=== PATIENT | female | born 2005 | race Caucasian/White ===

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

== ENCOUNTER 2024-01-05 11:50 | Emergency (ER) | payer OTHER, SELFPAY ==
[2024-01-05 11:56] VITALS: BP 145/80; PULSE 60; RESP 18; TEMP 36.8; O2SAT 98; BMI 33.1
[2024-01-05 12:35] LABS: Influenza Virus A Antigen Negative; Influenza Virus B Antigen Negative; Internal Control Within Normal Limits; SARS-CoV-2 Ag NEGATIVE (NEGATIVE)
--- NOTE | 2024-01-05 12:44 | ED_ITS ---
HPI - URI/Sore Throat General Chief Complaint: Upper Respiratory Infection Stated Complaint: FLU LIKE SYMPTOMS Time Seen by Provider: 01/05/24 11:56 Source: patient Limitations: no limitations History of Present Illness HPI Narrative: Patient with 3 days of nasal congestion, dry cough, fever and body aches. She has been taking OTC meds but it is not going away . She admits to some wheezing. No GI or symptoms. Uncertain about ill exposures. She vapes/smokes. No history of asthma or lung disease Related Data Previous Rx's Medication Instructions Recorded albuterol sulfate 90 mcg/actuation 2 inh inhalation Q6H PRN shortness 01/05/24 aerosol inhaler of breath or wheezing #6.7 grams tdcgjfnzokvoqat-nmeibpynwdhgzlq-UP 5 ml PO Q6H PRN cold symptoms #118 01/05/24 2 mg-30 mg-10 mg/5 mL oral syrup mL (Bromfed DM) Allergies Allergy/AdvReac Type Severity Reaction Status Date / Time haloperidol [From Haldol] Allergy Severe Verified 01/05/24 11:56 metoclopramide [From Reglan] AdvReac Intermediate facial Verified 01/05/24 11:56 drooping PFSH PFSH Medical History (Updated 01/05/24 @ 12:47 by Seven Watts) Leukocytosis ?D72.829 - Elevated white blood cell count, unspecified (ICD-10) Bipolar 1 disorder ?F31.9 - Bipolar disorder, unspecified (ICD-10) Migraine ?G43.909 - Migraine, unspecified, not intractable, without status migrainosus (ICD-10) POTS (postural orthostatic tachycardia syndrome) ?G90.A - Postural orthostatic tachycardia syndrome [POTS] (ICD-10) Cyclic vomiting syndrome ?R11.15 - Cyclical vomiting syndrome unrelated to migraine (ICD-10) Cyclic vomiting syndrome ?R11.15 - Cyclical vomiting syndrome unrelated to migraine (ICD-10) Fall ?W19.XXXA - Unspecified fall, initial encounter (ICD-10) Fracture of tibial plateau ?S82.143A - Displaced bicondylar fracture of unspecified tibia, initial en counter for closed fracture (ICD-10) Surgical History History of appendectomy ?Z90.49 - Acquired absence of other specified parts of digestive tract (ICD- 10) Family History Father Family history of stroke Family history of diabetes mellitus Family history of cancer Family history of hypertension Family history of CHF (congestive heart failure) Grandfather Family history of stroke Grandmother Family history of myocardial infarction Mother Family history of diabetes mellitus Family history of cancer Social History Within the past year, how often did you have a drink containing alcohol: never Score interpretation: A score less than 3 is consistent with normal alcohol consumption. Smoking status: Current every day smoker Non-prescribed substance use: cannabis (any form) Do you think of yourself as: straight/heterosexual Gender Identity: female Exam Narrative Exam Narrative: Nurses notes and vital signs reviewed and patient is not hypoxic. afebrile General: Well-appearing and in no apparent distress. Skin: Warm, dry, no pallor noted. Head: Normocephalic, atraumatic. Neck: Supple, non-tender. No cervical lymphadenopathy. No meningismus. Eye: Pupils are equal, round and EOMI. No scleral icterus. Ears, Nose, Mouth, and Throat: TM are clear, mild posterior oropharynx erythema and nasal mucosal hypertrophy, uvula is mid-line. Oral mucosa is moist Cardiovascular: Regular Rate and Rhythm without murmur, gallop or rub. Respiratory: No accessory muscle use or respiratory distress. Lungs are clear to auscultation, no wheezing, rales or rhonchi Musculoskeletal: normal ROM GI: Abdomen is soft, non-distended. Normal bowel sounds. No tenderness to palpation. No rebound, guarding, or rigidity noted. Neurological: A&O x4. No cranial nerve dysfunction observed. No truncal ataxia. Moves all extremities. Sensation intact. Psychiatric: Cooperative and interactive. Normal mood and affect. Constitutional Vital Signs, click to edit/add: Last Vital Signs Temp 98.3 F 01/05/24 11:56 Pulse 60 01/05/24 11:56 Resp 18 01/05/24 11:56 BP 145/80 H 01/05/24 11:56 Pulse Ox 98 01/05/24 11:56 Course Vital Signs Vital signs: Vital Signs Temperature 98.3 F 01/05/24 11:56 Pulse Rate 60 01/05/24 11:56 Respiratory Rate 18 01/05/24 11:56 Blood Pressure 145/80 H 01/05/24 11:56 Pulse Oximetry 98 01/05/24 11:56 Temperature 98.3 F 01/05/24 11:56 Pulse Rate 60 01/05/24 11:56 Respiratory Rate 18 01/05/24 11:56 Blood Pressure 145/80 H 01/05/24 11:56 Pulse Oximetry 98 01/05/24 11:56 MDM - URI/Sore Throat MDM Narrative Medical decision making narrative: Swabs for COVID and influenza were negative. She has an upper respiratory tract infection associated with a viral syndrome. She was discharged home with prescription for Bromfed cough syrup and an albuterol MDI to use for any wheezing. She is not wheezing now which is why treatment was not given in the emergency department. Patient advised to rest, stay at home, practice social distancing, take Motrin and Tylenol for pain and fever if not allergic, stay well hydrated with Gatorade or similar drinks if vomiting or eat as tolerated if not and take any meds as prescribed. Reviewed reasons to return including rapid increase in respiratory rate, shortness of breath, confusion, inability to keep down sips of swallowed liquids for more than 24 hours. Asked patient to encourage any ill contacts to stay home and practice similar advice. Lab Data Attestation: I reviewed the patient's lab results. Labs: Lab Results 01/05/24 Range/Units 12:13 Influenza Type A Ag Negative Influenza Type B Ag Negative SARS-CoV-2 Ag (CV2AG) Negative (NEGATIVE) Discharge Plan Discharge Chief Complaint: Upper Respiratory Infection Clinical Impression: Upper respiratory infection, Viral infection Patient Disposition: Home, Self-Care Time of Disposition Decision: 12:47 Prescriptions / Home Meds: New xkiggbnpeirmwvs-gjntzdkqn-YE [Bromfed DM] 2-30-10 mg/5 mL syrup 5 ml PO Q6H PRN (Reason: cold symptoms) Qty: 118 0RF albuterol sulfate 90 mcg/actuation HFA aerosol inhaler 2 inh inhalation Q6H PRN (Reason: shortness of breath or wheezing) Qty: 6.7 0RF Instructions: Upper Respiratory Infection (ED), Viral Syndrome (ED) Stand Alone Forms: Portal Instructions Referrals: Physician,Non-Staff, MD [Primary Care Provider] - 1 week
== END 2024-01-05 12:58 | disposition home or self-care (01) ==
PROVIDERS: Emergency Provider Emergency Medicine
DX: J06.9 Acute upper respiratory infection, unspecified (principal); F17.290 Nicotine dependence, other tobacco product, uncomplicated; F31.9 Bipolar disorder, unspecified; Z90.49 Acquired absence of other specified parts of digestive tract
CPT/HCPCS: 87804; 87811; 99283

== ENCOUNTER 2024-02-01 08:08 | Emergency (ER) | payer OTHER, SELFPAY ==
[2024-02-01 08:11] VITALS: BP 128/89; PULSE 71; RESP 18; TEMP 37.1; O2SAT 98; BMI 34.3
--- NOTE | 2024-02-01 08:14 | XR_ITS ---
The [address] [address] Patient Name: PILI SEGURA MRN: [id number] date: 2005 Sex: F Assigned Patient Location: ER Current Patient Location: ER Accession/Order Number: [id number] Exam Date: 02/01/2024 08:40 Report Date: 02/01/2024 08:51 At the request of: CAT TUTTLE Procedure: XR ankle RT min 3V PROCEDURE: XR ankle RT min 3V COMPARISON: None. HISTORY: injury FINDINGS: BONES:No fracture, acute abnormality, or significant arthropathy. SOFT TISSUES:Negative. No visible soft tissue swelling. EFFUSION:None visible. OTHER: Negative. XR/XR ankle RT min 3V IMPRESSION: No acute radiographic abnormality Electronically authenticated by: MELIDA RAMOS Date: 02/01/2024 08:51
--- NOTE | 2024-02-01 09:27 | ED_ITS ---
HPI - General Adult General Chief complaint: Extremity Injury, Lower Stated complaint: LOWER EXTRMITY PAIN Time Seen by Provider: 02/01/24 08:37 Source: patient Mode of arrival: walk-in History of Present Illness HPI narrative: Patient is a 19-year-old female who is presenting to the ER today with chief complaint right ankle pain. Patient is having pain diffusely around in the right lateral malleolus. Patient stated she was at home today, they have a ladder in their house. Somehow patient stumbled or tripped, had a mechanical fall, the ladder fell down and patient fell down as well. Patient did not fall down a height, she had a same level fall. Patient had right knee surgery last year, patient had a patellar fracture and some muscles/ligaments that were torn and patient had a right knee surgery last year. Patient is having minimal pain to the right knee. Patient is able to walk with some pain. Father and boyfriend are at bedside, no other acute complaints. Patient does have a job, she has spoken to her boss and stated that she could do a sitdown job at work today we had a cast for discharge. All systems are negative except as noted/marked. All systems reviewed and otherwise negative. Nurses note and vital signs reviewed and patient is not hypoxic. General: The patient appears well and in no apparent distress. Patient is resting comfortably on cart. Patient is not toxic, lethargic, or listless. Poor hygiene. Skin: Warm, dry, no pallor noted. There is no rash noted. No petechiae, purpura. Head: Normocephalic, atraumatic Eye: Normal conjunctiva, no drainage, EOMI. PERRL Ears, Nose, Mouth, and Throat: oral mucosa is moist. Nares patent. Mouth without vesicles. Cardiovascular: Regular Rate and Rhythm, no murmur, gallop, rub Respiratory: Patient is in no distress, no accessory muscle use, lungs are clear to auscultation, no wheezing, rales or rhonchi Musculoskeletal: Patient has full range of motion of all of the extremities except to the right ankle/foot. Patient has full flexion/extension of the right knee with minimal if any pain, no pain with varus or valgus stress. Patient has mild tenderness to palpation around the right medial malleolus, diffusely, minimal pain to the right Achilles tendon, right Achilles tendon is intact. No pain to the right medial malleolus. No pain to the right foot. No other acute findings on physical exam. Patient no motor, sensory, or focal neurological deficits Neurological: A&O x4, normal speech Psychiatric: Cooperative Related Data Previous Rx's Medication Instructions Recorded albuterol sulfate 90 mcg/actuation 2 inh inhalation Q6H PRN shortness 01/05/24 aerosol inhaler of breath or wheezing #6.7 grams dfzjcxpghentees-ltqxfodurgeeafq-EG 5 ml PO Q6H PRN cold symptoms #118 01/05/24 2 mg-30 mg-10 mg/5 mL oral syrup mL (Bromfed DM) Allergies Allergy/AdvReac Type Severity Reaction Status Date / Time haloperidol [From Haldol] Allergy Severe Verified 01/05/24 11:56 metoclopramide [From Reglan] AdvReac Intermediate facial Verified 01/05/24 11:56 drooping PFSH PFSH Medical History (Updated 02/01/24 @ 09:27 by Floyd Molina MD) Leukocytosis ?D72.829 - Elevated white blood cell count, unspecified (ICD-10) Bipolar 1 disorder ?F31.9 - Bipolar disorder, unspecified (ICD-10) Migraine ?G43.909 - Migraine, unspecified, not intractable, without status migrainosus (ICD-10) POTS (postural orthostatic tachycardia syndrome) ?G90.A - Postural orthostatic tachycardia syndrome [POTS] (ICD-10) Cyclic vomiting syndrome ?R11.15 - Cyclical vomiting syndrome unrelated to migraine (ICD-10) Cyclic vomiting syndrome ?R11.15 - Cyclical vomiting syndrome unrelated to migraine (ICD-10) Fall ?W19.XXXA - Unspecified fall, initial encounter (ICD-10) Fracture of tibial plateau ?S82.143A - Displaced bicondylar fracture of unspecified tibia, initial encounter for closed fracture (ICD-10) Surgical History History of appendectomy ?Z90.49 - Acquired absence of other specified parts of digestive tract (ICD- 10) Family History Father Family history of stroke Family history of diabetes mellitus Family history of cancer Family history of hypertension Family history of CHF (congestive heart failure) Grandfather Family history of stroke Grandmother Family history of myocardial infarction Mother Family history of diabetes mellitus Family history of cancer Social History Within the past year, how often did you have a drink containing alcohol: never Score interpretation: A score less than 3 is consistent with normal alcohol consumption. Smoking status: Current every day smoker Non-prescribed substance use: cannabis (any form) Do you think of yourself as: straight/heterosexual Gender Identity: female Exam Constitutional Vital Signs, click to edit/add: Last Vital Signs Temp 98.8 F 02/01/24 08:11 Pulse 71 02/01/24 08:11 Resp 18 02/01/24 08:11 BP 128/89 02/01/24 08:11 Pulse Ox 98 02/01/24 08:11 Course Vital Signs Vital signs: Vital Signs Temperature 98.8 F 02/01/24 08:11 Pulse Rate 71 02/01/24 08:11 Respiratory Rate 18 02/01/24 08:11 Blood Pressure 128/89 02/01/24 08:11 Pulse Oximetry 98 02/01/24 08:11 Temperature 98.8 F 02/01/24 08:11 Pulse Rate 71 02/01/24 08:11 Respiratory Rate 18 02/01/24 08:11 Blood Pressure 128/89 02/01/24 08:11 Pulse Oximetry 98 02/01/24 08:11 Medical Decision Making MDM Narrative Medical decision making narrative: Patient was placed in Fabián wrap and Aircast to the right ankle. Splint was assisted with . the patient was neurovascularly intact before and after the splint was placed. the affected bones/injured area had proper alignment in a splint. Education on splint care at home was given at bedside. Patient and family have no questions at discharge. Work note was given, education on ice, Fabián wrap and Aircast was done at bedside and on discharge paperwork. Patient has no acute signs of fracture. No questions at discharge. Patient was given a copy of her x-ray report Discharge Plan Discharge Chief Complaint: Extremity Injury, Lower Clinical Impression: Ankle pain, right Patient Disposition: Home, Self-Care Time of Disposition Decision: 09:27 Condition: Fair Prescriptions / Home Meds: No Action xwlrvjmdojaymoz-pbomigouz-BK [Bromfed DM] 2-30-10 mg/5 mL syrup 5 ml PO Q6H PRN (Reason: cold symptoms) Qty: 118 0RF albuterol sulfate 90 mcg/actuation HFA aerosol inhaler 2 inh inhalation Q6H PRN (Reason: shortness of breath or wheezing) Qty: 6.7 0RF Instructions: Ankle Sprain (ED), P.R.I.C.E. Treatment (ED) Additional Instructions: Use ice 20 minutes on, 20 minutes off. Ambulation as tolerated for the next 3 to 5 days. Work note given. Alternate Tylenol and Motrin every 4 hours for pain, inflammation, swelling. Referrals: Physician,Non-Staff, MD [Primary Care Provider] - 1 week Discharge Date/Time: 02/01/24 09:38 Stand Alone Forms: Work/School Release, Portal Instructions
== END 2024-02-01 09:38 | disposition home or self-care (01) ==
PROVIDERS: Emergency Provider Emergency Medicine
DX: M25.571 Pain in right ankle and joints of right foot (principal); F31.9 Bipolar disorder, unspecified; G90.A Postural orthostatic tachycardia syndrome [POTS]; Z90.49 Acquired absence of other specified parts of digestive tract; F17.210 Nicotine dependence, cigarettes, uncomplicated; F12.90 Cannabis use, unspecified, uncomplicated
CPT/HCPCS: 73610; 99283

== ENCOUNTER 2024-03-12 10:56 | Emergency (ER) | payer OTHER, SELFPAY ==
[2024-03-12 11:01] VITALS: BP 163/81; PULSE 78; TEMP 36.7; O2SAT 96; BMI 39.1
--- NOTE | 2024-03-12 11:10 | ED_ITS ---
HPI - Nausea/Vomiting/Diarrhea General Chief complaint: Nausea/Vomiting/Diarrhea Stated complaint: NAUSEA, VOMITING Time Seen by Provider: 03/12/24 11:07 Source: patient Mode of arrival: walk-in Limitations: no limitations History of Present Illness HPI Narrative: 19-year-old female presents to ED for nausea vomiting and abdominal cramping. It started mildly yesterday and was worse today. No fever or hematemesis or diarrhea. She states she is on her period now but had a period 2 weeks ago. The pain is cramping and moderate and continuous. She has a history of cyclic vomiting syndrome according to the EHR. Related Data Previous Rx's ?Medication ?Instructions ?Recorded albuterol sulfate 90 mcg/actuation 2 inh inhalation Q6H PRN shortness 01/05/24 aerosol inhaler of breath or wheezing #6.7 grams mnjbeqfpzxtkvwf-larqwbgawnwmzvr-US 5 ml PO Q6H PRN cold symptoms #118 01/05/24 2 mg-30 mg-10 mg/5 mL oral syrup mL (Bromfed DM) Allergies Allergy/AdvReac Type Severity Reaction Status Date / Time metoclopramide [From Reglan] AdvReac Intermediate facial Verified 01/05/24 11:56 drooping Review of Systems ROS Narrative A ten point review of systems is negative except as noted above. [facility] Medical History (Updated 03/12/24 @ 12:18 by Juan C Hernandez MD) Leukocytosis ?D72.829 - Elevated white blood cell count, unspecified (ICD-10) Bipolar 1 disorder ?F31.9 - Bipolar disorder, unspecified (ICD-10) Migraine ?G43.909 - Migraine, unspecified, not intractable, without status migrainosus (ICD-10) POTS (postural orthostatic tachycardia syndrome) ?G90.A - Postural orthostatic tachycardia syndrome [POTS] (ICD-10) Cyclic vomiting syndrome ?R11.15 - Cyclical vomiting syndrome unrelated to migraine (ICD-10) Cyclic vomiting syndrome ?R11.15 - Cyclical vomiting syndrome unrelated to migraine (ICD-10) Fall ?W19.XXXA - Unspecified fall, initial encounter (ICD-10) Fracture of tibial plateau ?S82.143A - Displaced bicondylar fracture of unspecified tibia, initial encounter for closed fracture (ICD-10) Surgical History History of appendectomy ?Z90.49 - Acquired absence of other specified parts of digestive tract (ICD- 10) Family History Father Family history of stroke Family history of diabetes mellitus Family history of cancer Family history of hypertension Family history of CHF (congestive heart failure) Grandfather Family history of stroke Grandmother Family history of myocardial infarction Mother Family history of diabetes mellitus Family history of cancer Social History Within the past year, how often did you have a drink containing alcohol: never Score interpretation: A score less than 3 is consistent with normal alcohol consumption. Smoking status: Current every day smoker Non-prescribed substance use: cannabis (any form) Do you think of yourself as: straight/heterosexual Gender Identity: female Exam Narrative Exam Narrative: Nurses note and vital signs reviewed and patient is not hypoxic. General: The patient appears well and in no apparent distress. Patient is re sting comfortably on cart. Skin: Warm, dry, no pallor noted. There is no rash noted. Head: Normocephalic, atraumatic Eye: Normal conjunctiva, no drainage Ears, Nose, Mouth, and Throat: oral mucosa is moist. Nares patent. Cardiovascular: Regular Rate and Rhythm Respiratory: Patient is in no distress, no accessory muscle use, lungs are clear to auscultation, no wheezing, rales or rhonchi Back: non-tender GI: Normal bowel sounds, no tenderness to palpation, no masses appreciated. No rebound, guarding, or rigidity noted. Musculoskeletal: The patient has no evidence of calf tenderness, no pitting edema, symmetrical pulses noted bilaterally Neurological: A&O, normal speech Psychiatric: Cooperative Constitutional Vital Signs, click to edit/add: Last Vital Signs Temp 98.1 F 03/12/24 11:01 Pulse 78 03/12/24 11:01 Resp 18 03/12/24 11:01 BP 163/81 H 03/12/24 11:01 Pulse Ox 96 03/12/24 11:01 O2 Del Method Room Air 03/12/24 11:01 Course Vital Signs Vital signs: Vital Signs Temperature 98.1 F 03/12/24 11:01 Pulse Rate 78 03/12/24 11:01 Respiratory Rate 18 03/12/24 11:01 Blood Pressure 163/81 H 03/12/24 11:01 Pulse Oximetry 96 03/12/24 11:01 Oxygen Delivery Method Room Air 03/12/24 11:01 Temperature 98.1 F 03/12/24 11:01 Pulse Rate 78 03/12/24 11:01 Respiratory Rate 18 03/12/24 11:01 Blood Pressure 163/81 H 03/12/24 11:01 Pulse Oximetry 96 03/12/24 11:01 Oxygen Delivery Method Room Air 03/12/24 11:01 MDM - Nausea/Vomiting/Diarrhea MDM Narrative Medical decision making narrative: She was ordered IV fluids and medications but did not want to stay for her full treatment and she left without completing treatment. Differential Diagnosis Differential diagnosis: Likely food poisoning, gastroenteritis, drug-induced nausea and vomiting, dehydration and other (Cyclic vomiting syndrome) Lab Data Attestation: I reviewed the patient's lab results. Labs: Lab Results 03/12/24 Range/Units 11:17 WBC 13.7 H (4.0-11.0) 10^3/uL RBC 5.03 (4.20-5.40) 10^6/uL Hgb 14.0 (12.0-16.0) g/dL Hct 43.3 (36.0-48.0) % MCV 86.1 (81.0-99.0) fL MCH 27.8 (26.7-34.0) pg MCHC 32.3 (29.9-35.2) g/dL RDW 13.2 (11.0-15.0) % Plt Count 306 (150-450) 10^3/uL MPV 10.3 (9.5-13.5) fL Neut % (Auto) 77.8 H (43.0-75.0) % Lymph % (Auto) 14.1 L (20.5-60.0) % Knox % (Auto) 4.1 (1.7-12.0) % Eos % (Auto) 3.2 (0.9-7.0) % Baso % (Auto) 0.4 (0.2-2.0) % Neut # (Auto) 10.6 H (1.4-6.5) 10^3/uL Lymph # (Auto) 1.9 (1.2-3.8) 10^3/uL Knox # (Auto) 0.6 (0.3-0.8) 10^3/uL Eos # (Auto) 0.4 (0.0-0.7) 10^3/uL Baso # (Auto) 0.1 (0.0-0.1) 10^3/uL Abs Immat Gran (auto) 0.06 H (0.00-0.03) 10^3/uL Imm/Tot Granulo (auto) 0.4 (0.0-0.5) % Sodium 141 (136-145) mmol/L Potassium 3.6 (3.5-5.1) mmol/L Chloride 106 (98-107) mmol/L Carbon Dioxide 19.6 L (21.0-32.0) mmol/L Anion Gap 19.0 BUN 19.0 H (7.0-18.0) mg/dL Creatinine 0.78 (0.55-1.02) mg/dL Est GFR ( Amer) >60 (>=60) Est GFR (Non-Af Amer) >60 (>=60) BUN/Creatinine Ratio 24.4 Glucose 136 H (74-106) mg/dL Calcium 10.0 (8.5-10.1) mg/dL Serum HCG, Qual Negative (NEGATIVE) Discharge Plan Discharge Stand Alone Forms: Portal Instructions Chief Complaint: Nausea/Vomiting/Diarrhea Clinical Impression: Nausea and vomiting Patient Disposition: Left Against Medical Advice Time of Disposition Decision: 12:18 Condition: Good Mode of Transportation: Private Vehicle Prescriptions / Home Meds: No Action mdzxuzrfwhqzjpf-fgulvqxbu-KT [Bromfed DM] 2-30-10 mg/5 mL syrup 5 ml PO Q6H PRN (Reason: cold symptoms) Qty: 118 0RF albuterol sulfate 90 mcg/actuation HFA aerosol inhaler 2 inh inhalation Q6H PRN (Reason: shortness of breath or wheezing) Qty: 6.7 0RF Print Language: Romanian Instructions: Acute Nausea and Vomiting (ED) Referrals: Physician,Non-Staff, MD [Primary Care Provider] - 1 week
[2024-03-12] MEDS: 0.9 % SODIUM CHLORIDE 1,000 ML 1000 ML IV (11:26)
[2024-03-12] MEDS: ONDANSETRON PF 4 MG/2 ML VIAL IV (11:26)
[2024-03-12 11:44] LABS: Basophils Absolute Auto 0.1 10^3/uL (0.0-0.1); Basophils Percent Auto 0.4 % (0.2-2.0); Eosinophils Absolute Auto 0.4 10^3/uL (0.0-0.7); Eosinophils Percent Auto 3.2 % (0.9-7.0); Hematocrit 43.3 % (36.0-48.0); Immature Granulocytes Abs Auto 0.06 10^3/uL (0.00-0.03); Immature Granulocytes Pct Auto 0.4 % (0.0-0.5); Lymphocytes Absolute Auto 1.9 10^3/uL (1.2-3.8); Lymphocytes Percent Auto 14.1 % (20.5-60.0); Mean Corpuscular HGB Conc 32.3 g/dL (29.9-35.2); Mean Corpuscular Hemoglobin 27.8 pg (26.7-34.0); Mean Corpuscular Volume 86.1 fL (81.0-99.0); Mean Platelet Volume 10.3 fL (9.5-13.5); Monocytes Absolute Auto 0.6 10^3/uL (0.3-0.8); Monocytes Percent Auto 4.1 % (1.7-12.0); Neutrophils Absolute Auto 10.6 10^3/uL (1.4-6.5); Neutrophils Percent Auto 77.8 % (43.0-75.0); Platelet Count 306 10^3/uL (150-450); Red Blood Count 5.03 10^6/uL (4.20-5.40); Red Cell Distribution Width 13.2 % (11.0-15.0); White Blood Count 13.7 10^3/uL (4.0-11.0)
[2024-03-12] MEDS: KETOROLAC TROMETHAMINE 30 MG/ML VIAL IVP (11:49)
[2024-03-12 11:50] LABS: BUN Creatinine Ratio 24.4; Carbon Dioxide 19.6 mmol/L (21.0-32.0); Chloride 106 mmol/L (98-107); Estimated GFR (African America >60 (>=60); Estimated GFR (Non-African Ame >60 (>=60); Glucose 136 mg/dL (74-106); Potassium 3.6 mmol/L (3.5-5.1); Sodium 141 mmol/L (136-145)
[2024-03-12 12:08] LABS: HCG Qualitative NEGATIVE (NEGATIVE)
== END 2024-03-12 12:20 | disposition left against medical advice (07) ==
PROVIDERS: Emergency Provider Emergency Medicine
DX: R11.2 Nausea with vomiting, unspecified (principal); Z53.29 Procedure and treatment not carried out because of patient's decision for other reasons; F31.9 Bipolar disorder, unspecified; G90.A Postural orthostatic tachycardia syndrome [POTS]; Z90.49 Acquired absence of other specified parts of digestive tract; F17.210 Nicotine dependence, cigarettes, uncomplicated; F12.90 Cannabis use, unspecified, uncomplicated
CPT/HCPCS: 36415; 80048; 84703; 85025; 96374; 96375; 99284

== ENCOUNTER 2024-03-13 08:25 | Emergency (ER) | payer OTHER, SELFPAY ==
[2024-03-13 08:29] VITALS: BP 136/76; PULSE 58; TEMP 36.9; O2SAT 100; BMI 37.2
--- NOTE | 2024-03-13 08:44 | ED_ITS ---
HPI - Nausea/Vomiting/Diarrhea General Chief complaint: Nausea/Vomiting/Diarrhea Stated complaint: SHORTNESS OF BREATH/NAUSEA Time Seen by Provider: 03/13/24 08:38 Source: patient Mode of arrival: walk-in History of Present Illness HPI Narrative: 19-year-old female presents for nausea and vomiting. She states she has cyclic vomiting. She smokes marijuana but tells me that this is not due to to marijuana. She was seen here yesterday but left without completing her treatment. She has had no hematemesis or fever or diarrhea. Related Data Previous Rx's ?Medication ?Instructions ?Recorded promethazine 25 mg rectal 25 mg MA Q6H PRN nausea and 03/13/24 suppository vomiting #12 ea promethazine 25 mg tablet 25 mg PO Q6H PRN nausea and 03/13/24 vomiting #20 tabs Allergies Allergy/AdvReac Type Severity Reaction Status Date / Time metoclopramide [From Reglan] AdvReac Intermediate facial Verified 01/05/24 11:56 drooping Review of Systems ROS Narrative A ten point review of systems is negative except as noted above. [facility] Medical History (Updated 03/13/24 @ 10:01 by Juan C Hernandez MD) Leukocytosis ?D72.829 - Elevated white blood cell count, unspecified (ICD-10) Bipolar 1 disorder ?F31.9 - Bipolar disorder, unspecified (ICD-10) Migraine ?G43.909 - Migraine, unspecified, not intractable, without status migrainosus (ICD-10) POTS (postural orthostatic tachycardia syndrome) ?G90.A - Postural orthostatic tachycardia syndrome [POTS] (ICD-10) Cyclic vomiting syndrome ?R11.15 - Cyclical vomiting syndrome unrelated to migraine (ICD-10) Cyclic vomiting syndrome ?R11.15 - Cyclical vomiting syndrome unrelated to migraine (ICD-10) Fall ?W19.XXXA - Unspecified fall, initial encounter (ICD-10) Fracture of tibial plateau ?S82.143A - Displaced bicondylar fracture of unspecified tibia, initial encounter for closed fracture (ICD-10) Surgical History History of appendectomy ?Z90.49 - Acquired absence of other specified parts of digestive tract (ICD- 10) Family History Father Family history of stroke Family history of diabetes mellitus Family history of cancer Family history of hypertension Family history of CHF (congestive heart failure) Grandfather Family history of stroke Grandmother Family history of myocardial infarction Mother Family history of diabetes mellitus Family history of cancer Social History Within the past year, how often did you have a drink containing alcohol: never Score interpretation: A score less than 3 is consistent with normal alcohol consumption. Smoking status: Current every day smoker Non-prescribed substance use: cannabis (any form) Do you think of yourself as: straight/heterosexual Gender Identity: female Exam Narrative Exam Narrative: Nurses note and vital signs reviewed and patient is not hypoxic. General: The patient appears well and in no apparent distress. Patient is resting comfortably on cart. Skin: Warm, dry, no pallor noted. There is no rash noted. Head: Normocephalic, atraumatic Eye: Normal conjunctiva, no drainage Ears, Nose, Mouth, and Throat: oral mucosa is moist. Nares patent. Cardiovascular: Regular Rate and Rhythm Respiratory: Patient is in no distress, no accessory muscle use, lungs are clear to auscultation, no wheezing, rales or rhonchi Back: non-tender GI: Soft and nontender and nondistended Musculoskeletal: The patient has no evidence of calf tenderness, no pitting edema, symmetrical pulses noted bilaterally Neurological: A&O, normal speech Psychiatric: Cooperative Constitutional Vital Signs, click to edit/add: Last Vital Signs Temp 98.5 F 03/13/24 08:29 Pulse 58 L 03/13/24 08:29 Resp 20 03/13/24 08:29 BP 136/76 03/13/24 08:29 Pulse Ox 100 03/13/24 08:29 Course Vital Signs Vital signs: Vital Signs Temperature 98.5 F 03/13/24 08:29 Pulse Rate 58 L 03/13/24 08:29 Respiratory Rate 20 03/13/24 08:29 Blood Pressure 136/76 03/13/24 08:29 Pulse Oximetry 100 03/13/24 08:29 Temperature 98.5 F 03/13/24 08:29 Pulse Rate 58 L 03/13/24 08:29 Respiratory Rate 20 03/13/24 08:29 Blood Pressure 136/76 03/13/24 08:29 Pulse Oximetry 100 03/13/24 08:29 MDM - Nausea/Vomiting/Diarrhea MDM Narrative Medical decision making narrative: Does not think and she was given IV fluids and Phenergan and is discharged home. Findings are discussed with the patient. Differential Diagnosis Differential diagnosis: Likely food poisoning, gastroenteritis, dehydration and other (Cyclic vomiting) Lab Data Attestation: I reviewed the patient's lab results. Labs: Lab Results 03/13/24 Range/Units 09:04 WBC 16.5 H (4.0-11.0) 10^3/uL RBC 5.00 (4.20-5.40) 10^6/uL Hgb 13.8 (12.0-16.0) g/dL Hct 42.9 (36.0-48.0) % MCV 85.8 (81.0-99.0) fL MCH 27.6 (26.7-34.0) pg MCHC 32.2 (29.9-35.2) g/dL RDW 13.6 (11.0-15.0) % Plt Count 366 (150-450) 10^3/uL MPV 10.4 (9.5-13.5) fL Neut % (Auto) 84.3 H (43.0-75.0) % Lymph % (Auto) 9.9 L (20.5-60.0) % [place] % (Auto) 5.3 (1.7-12.0) % Eos % (Auto) 0.0 L (0.9-7.0) % Baso % (Auto) 0.1 L (0.2-2.0) % Neut # (Auto) 13.9 H (1.4-6.5) 10^3/uL Lymph # (Auto) 1.6 (1.2-3.8) 10^3/uL [place] # (Auto) 0.9 H (0.3-0.8) 10^3/uL Eos # (Auto) 0.0 (0.0-0.7) 10^3/uL Baso # (Auto) 0.0 (0.0-0.1) 10^3/uL Abs Immat Gran (auto) 0.07 H (0.00-0.03) 10^3/uL Imm/Tot Granulo (auto) 0.4 (0.0-0.5) % Sodium 142 (136-145) mmol/L Potassium 3.3 L (3.5-5.1) mmol/L Chloride 103 (98-107) mmol/L Carbon Dioxide 22.4 (21.0-32.0) mmol/L Anion Gap 19.9 BUN 23.0 H (7.0-18.0) mg/dL Creatinine 1.04 H (0.55-1.02) mg/dL Est GFR ( Amer) >60 (>=60) Est GFR (Non-Af Amer) >60 (>=60) BUN/Creatinine Ratio 22.1 Glucose 130 H (74-106) mg/dL Calcium 10.5 H (8.5-10.1) mg/dL Serum HCG, Qual Negative (NEGATIVE) Discharge Plan Discharge Stand Alone Forms: Portal Instructions Chief Complaint: Nausea/Vomiting/Diarrhea Clinical Impression: Nausea and vomiting Patient Disposition: Home, Self-Care Time of Disposition Decision: 10:01 Condition: Good Mode of Transportation: Private Vehicle Prescriptions / Home Meds: New promethazine 25 mg tablet 25 mg PO Q6H PRN (Reason: nausea and vomiting) Qty: 20 0RF promethazine 25 mg suppository 25 mg MA Q6H PRN (Reason: nausea and vomiting) Qty: 12 0RF Print Language: Luxem[place]ish Instructions: Acute Nausea and Vomiting (ED) Referrals: Physician,Non-Staff, MD [Primary Care Provider] - 1 week
[2024-03-13] MEDS: PROMETHAZINE HCL 12.5 MG in 0.9 % SODIUM CHLORIDE 50 ML 202 MG IV (08:58)
[2024-03-13] MEDS: KETOROLAC TROMETHAMINE 30 MG/ML VIAL IVP (08:59)
[2024-03-13] MEDS: 0.9 % SODIUM CHLORIDE 1,000 ML 1000 ML IV (08:59)
[2024-03-13 09:24] LABS: Anion Gap 19.9; BUN Creatinine Ratio 22.1; Calcium 10.5 mg/dL (8.5-10.1); Carbon Dioxide 22.4 mmol/L (21.0-32.0); Chloride 103 mmol/L (98-107); Estimated GFR (African America >60 (>=60); Estimated GFR (Non-African Ame >60 (>=60); Glucose 130 mg/dL (74-106); Potassium 3.3 mmol/L (3.5-5.1); Sodium 142 mmol/L (136-145)
[2024-03-13 09:45] LABS: HCG Qualitative NEGATIVE (NEGATIVE)
[2024-03-13 09:53] LABS: Basophils Percent Auto 0.1 % (0.2-2.0); Hematocrit 42.9 % (36.0-48.0); Hemoglobin 13.8 g/dL (12.0-16.0); Immature Granulocytes Abs Auto 0.07 10^3/uL (0.00-0.03); Immature Granulocytes Pct Auto 0.4 % (0.0-0.5); Lymphocytes Absolute Auto 1.6 10^3/uL (1.2-3.8); Lymphocytes Percent Auto 9.9 % (20.5-60.0); Mean Corpuscular HGB Conc 32.2 g/dL (29.9-35.2); Mean Corpuscular Hemoglobin 27.6 pg (26.7-34.0); Mean Corpuscular Volume 85.8 fL (81.0-99.0); Mean Platelet Volume 10.4 fL (9.5-13.5); Monocytes Absolute Auto 0.9 10^3/uL (0.3-0.8); Monocytes Percent Auto 5.3 % (1.7-12.0); Neutrophils Absolute Auto 13.9 10^3/uL (1.4-6.5); Neutrophils Percent Auto 84.3 % (43.0-75.0); Platelet Count 366 10^3/uL (150-450); Red Cell Distribution Width 13.6 % (11.0-15.0); White Blood Count 16.5 10^3/uL (4.0-11.0)
== END 2024-03-13 10:11 | disposition home or self-care (01) ==
PROVIDERS: Emergency Provider Emergency Medicine
DX: R11.2 Nausea with vomiting, unspecified (principal); F12.90 Cannabis use, unspecified, uncomplicated; F31.9 Bipolar disorder, unspecified; G90.A Postural orthostatic tachycardia syndrome [POTS]; Z90.49 Acquired absence of other specified parts of digestive tract; F17.210 Nicotine dependence, cigarettes, uncomplicated
CPT/HCPCS: 36415; 80048; 84703; 85025; 96365; 96375; 99284

== ENCOUNTER 2024-03-18 19:25 | Emergency (ER) | payer OTHER, SELFPAY ==
[2024-03-18 19:32] VITALS: BP 149/101; PULSE 116; TEMP 36.8; O2SAT 96; BMI 35.1
--- OUTSIDE RECORDS SUMMARY | 2024-03-18 19:46 | XMS_ITS | CCD ---
Author Organization [facility] Care Team Providers Care Embedded Software Manager Name Role Phone Calvin, Mere T Unavailable Unavailable Calvin, Mere T Unavailable Unavailable WILKERSON-LUIS EDUARDO, AIMEE M Unavailable Unavail able Bumagina, Nilay Unavailable Unavailable SPLAWSKI, DALI B Unavailable Unavailable SPLAWSKI, DALI B Unavailable Unavailable Bumagina, Nilay Unavailable Unavailable SPLAWSKI, DALI B Unavailable Unavailable Bumagina, Nilay Unavailable Unavailable Bumagina, Nilay Unavailable Unavailable SPLAWSKI, DALI B Unavailable Unavailable Bumagina, Nilay Unavailable Unavailable Bumagina, Nilay Unavailable Unavailable Calvin, Mere T Unavailable Unavailable Bumagina, Nilay Unavailable Unavailable Bumagina, Nilay Unavailable Unavailable SPLAWSKI, DALI B Unavailable Unavailable Bumagina, Nilay Unavailable Unavailable Bumagina, Nilay Unavailable Unavailable WILKERSON-LUIS EDUARDO, AIMEE M Unavailable Unavail able SPLAWSKI, DALI B Unavailable Unavailable Aktay, Atiye Jeevan Unavailable Unavailable Bumagina, Nilay Unavailable Unavailable SPLAWSKI, DALI B Unavailable Unavailable Bumagina, Nilay Unavailable Unavailable Calvin, Mere T Unavailable Unavailable Bumagina, Nilay Unavailable Unavailable Bumagina, Nilay Unavailable Unavailable SPLAWSKI, DALI B Unavailable Unavailable Bumagina, Nilay Unavailable Unavailable Bumagina, Nilay Unavailable Unavailable LoParo, Radha Magy Unavailable Unavaila ble LoParo, Radha Magy Unavailable Unavaila ble LoParo, Radha Magy Unavailable Unavaila ble Bumagina, Nilay Unavailable Unavailable Unavailable Primary Care Provider Unavailabl e [facility], Services Primary Care Provider [phone] Tash, DO Art M Emergency Provider DO Ender Donovan J Emergency Provider DO Ravi Arguello M Emergency Provider DO Matthew Gilson Emergency Provider MILY Chand Attending Pr ovider MD Brennen Britt Attending Provider [phone] [facility] Prov ider [facility] Primary Care Provider FRANKY Rivera Emergency Provider MD Colten Fry Jr Emergency Provider DO Matthew Gilson Emergency Provider Aurelio, DO Gregorio Admit Provider Aurelio, DO Gregorio Attending Provider [facility] Prov ider FRANKY Rivera Emergency Provider [phone] MD Colten Fry Jr Emergency Provider DO Matthew Gilson Emergency Provider Lindliliamm, DO Gregorio Admit Provider [phone] Aurelio, DO Gregorio Attending Provider MILY Chand Attending Pr ovider DO Ravi Arguello M Emergency Provider [facility] Prov ider FRANKY Rivera Emergency Provider MD Colten Fry Jr Emergency Provider DO Matthew Gilson Emergency Provider Aurelio, DO Gregorio Admit Provider [phone] Aurelio, DO Gregorio Attending Provider MILY Chand Attending Pr ovider DO Ravi Arguello Emergency Provider [phone] DO Art Bianchi Emergency Provider [phone] DO Robert Henley Emergency Provider [facility] Primary Care Provider MD Corey Newberry Emergency Provider [facility] Primary Care Prov ider DO Federico Randolph Emergency Provider KATE Damian Emergency Provider [phone] MD Eliana Bautista Admit Provider [phone] MD Eliana Bautista Attending Provider SANDRO, DR VU Primary Care Unavailable DALIA ., AUSTIN Admitting Unavailable DALIA .AUSTIN Attending Unavailable DALIA ., AUSTIN Consulting Unavailable DIAB ., IRWIN Admitting Unavailable DIAB ., IRWIN Attending Unavailable SANDRO, DR VU Primary Care Unavailable KIA ARVIZU Consulting Unavailable ETHAN ., IRWIN Consulting Unavailable Colten Miller Unavailable [facility] Primary Care Provider MILY Chand Attending Pr ovider MD Colten Miller Attending Provider [facility] Primary Care Provider DO Ravi Arguello Emergency Provider [phone] [facility] Primary Care U navailable Art Bianchi Admitting Unavailable Art Bianchi Attending Unavailable Robert Henley Attending Unavailable [facility] Services Primary Care U navailable Robert Henley Admitting Unavailable [facility] Services Primary Care U navailable TashArt Admitting Unavailable TashArt Attending Unavailable Joss Rivera Attending Unavailable [facility], Services Primary Care U navailable Joss Rivera Admitting Unavailable Gregorio Carey Attending Unavailabl e [facility], Services Primary Care U navailable Gregorio Carey Admitting Unavailabl e [facility] Services Primary Care Unavaila ble Eliana Bautista Attending Unavailable Eliana Bautista Admitting Unavailable Modesta Chand Attending U [facility] Primary Care Unavaila ble Modesta Chand Admitting [facility] Ravi Arguello Admitting Unavailable Ravi Arguello Attending Unavailable [facility] Primary Care Unavaila ble [facility], Services Primary Care Unavaila ble Corey Newberry Attending Unavailable Corey Newberry Admitting Unavailable [facility] Primary Care Unavaila ble Angela, Colten Attending Unavailable Angela, Colten Admitting Unavailable Modesta Chand Attending U [facility] Primary Care [facility] Modesta Chand Admitting [facility] Primary Care Unavaila ble Olexa, Colten Admitting Unavailable Angela, Colten Attending Unavailable [facility] Primary Care Unavaila ble Angela, Colten Attending Unavailable Angela, Colten Admitting Unavailable Federico Randolph Attending Unavailable [facility] Primary Care Unavaila ble Federico Randolph Admitting Unavailable Gilson Castro Attending Unavailable Gilson Castro Admitting Unavailable [facility], Services Primary Care [facility] Primary Care [facility] Ravi Arguello Attending Unavailable Ravi Arguello Admitting Unavailable [facility] Primary Care Unavaila ble Angela, Colten Attending Unavailable Angela, Colten Admitting Unavailable [facility] Primary Care Unavaila ble Ravi Arguello Attending Unavailable Ravi Arguello Admitting Unavailable Colten Fry Jr Attending Unavailable [facility] Primary Care [facility] Colten Fry Jr Admitting Unavailable MODESTA ARCHIBALD Primary Care Physician August Bermudez Attending Unavailable MODESTA ARCHIBALD Primary Care Unavailable MODESTA ARCHIBALD Primary Care Unavailable Isaak Francis Attending Unavailable Allergies Allergy Classification Reported Allergen(s) Allergy Type Date of Onset Reaction(s) Facility (8 sources) Haloperidol; Translations: [haloperidol] Drug Allergy 3 Unknown Reaction [facility] (10 sources) Metoclopramide; Translations: [metoclopramide] Drug Allergy 3 Unknown (qualifier value) [facility] (1 source) Haloperidol Drug Allergy [facility] (2 sources) Iothalamate; Translations: [Reglan] Drug Allergy [facility] Medications Current Medications Medication Drug Class(es) Dates Sig (Normalized) Sig (Original) acetaminophen 325 mg / HYDROcodone bitartrate 5 mg oral tablet (20 sources) Opioid Agonist Start: 03-13-2024 End: 03-16-2024 [place] 325 mg-5 mg oral tablet 1 tab(s), Oral, q6hr for pain for 3 day(s), 7 tab(s), Refill(s) 0, [id number], 160, cm, 03/13/24 17:38:00 EDT, Height/Length Dosing, 95.5, kg, 03/13/24 17:38:00 EDT, Weight Dosing Start Date: 03/13/24 Stop Date: 03/16/24 Status: Ordered Start: 10-09-2021 take 15 mL by mouth every eight hours as needed for pain HYDROcodone-acetaminophen (HYCET) 7.5-32 5 mg/15 mL oral liquid Indications: Abscess, peritonsillar Take 15 mL by mouth every 8 hours as needed for pain. 120 mL 0 10/09/2021 Active Start: 12-15-2019 End: 12-31-2019 take 1 tablet by mouth every six hours Hydrocodone-Acetaminophen ([place]) 5-325 mg tablet Discontinued 1 TAB PO Q6H 6 2 December 15, 2019 December 31, 2019 1:37pm Start: 12-15-2019 End: 12-31-2019 Start: 04-20-2019 End: 05-05-2019 take 1 tablet by mouth every six hours Hydrocodone-Acetaminophen Discontinued 1 TAB PO Q6H 20 5 April 20, 2019 May 05, 2019 8:42pm Start: 04-20-2019 End: 05-05-2019 Start: 02-19-2019 End: 03-08-2019 take 1 tablet by mouth twice daily Hydrocodone-Acetaminophen ([place]) 5-325 mg tablet Discontinued 1 TAB PO Twice daily 6 3 February 19, 2019 March 08, 2019 3:53pm Start: 02-19-2019 End: 03-08-2019 Comment on above: Take 15 mL by mouth every 8 hours as needed for pain. acetaminophen 325 mg / oxyCODONE hydrochloride 5 mg oral tablet (9 sources) Opioid Agonist Start: 05-25-2023 take 1 tablet by mouth twice daily Oxycodone-Acetam inophen Active 5 - 325 TAB PO 2 times daily May 25, 2023 12:00am Start: 05-24-2023 take 1 tablet by kathe th every four to six hours as needed for pain Percocet 5-325 MG 1 tablet as needed for pain Orally up to every 4-6 hrs for 5 days SANTO: [id number] Apr, Active take 1 tablet by kathe th every six hours oxyCODONE-Acetaminophen 5-325 MG 1 tablet as needed Orally every 6 hrs Active cephalexin 500 mg oral capsule (20 sources) Cephalosporin Antibacterial Start: 05-24-2023 take 1 capsule by mouth every eight hours Cephalexin 500 MG 1 capsule Orally every 8 hrs for 2 days Apr, Active Start: 02-06-2022 End: 03-08-2022 take 250 mg by mouth four times daily Cephalexin Discontinued 250 MG PO Four times daily 24 06February 06, 2022 1:00am March 08, 2022 8:15pm Start: 08-20-2021 End: 09-05-2021 take 500 mg by mouth twice daily Cephalexin Discontinued 500 MG PO Twice daily August 20, 2021 12:00am September 05, 2021 11:25pm Start: 06-01-2021 End: 07-19-2021 take 1000 mg by mouth every twelve hours Cephalexin Discontinued 1000 MG PO Q12H 40 June 01, 2021 12:00am July 19, 2021 2:07pm Start: 06-01-2021 End: 07-19-2021 Start: 04-14-2021 End: 05-10-2021 take 1000 mg by mouth twice daily Cephalexin Discontinued 1000 MG PO Twice daily April 14, 2021 12:00am May 10, 2021 11:08am Start: 04-14-2021 End: 05-10-2021 Start: 10-07-2020 End: 01-12-2021 take 1 capsule by mouth twice daily Cephalexin (Keflex) 500 mg capsule Discontinued 500 MG PO Twice daily 16 09October 07, 2020 1:00am January 12, 2021 1:34pm Start: 03-23-2018 End: 04-05-2018 take 1 capsule by mouth four times daily Cephalexin (Keflex) 500 mg Capsule Discontinued 500 MG PO Four times daily March 23, 2018 12:00am April 05, 2018 10:48pm Start: 03-23-2018 End: 04-05-2018 Etonogestrel (3 sources) Progestin Nexplanon Active methocarbamol 500 mg oral tablet (2 sources) Muscle Relaxant Start: 4 End: 4 take 1 tablet by mouth three times daily Robaxin 500 mg Tab 500 mg = 1 tab(s), Oral, TID, X 3 day(s), # 9 tab(s), Refills(s) 0, Pharmacy: [facility][id number], 160, cm, 03/13/24 17:38:00 EDT, Height/Length Dosing, 95.5, kg, 03/13/24 17:38:00 EDT, Weight Dosing Start Date: 03/13/24 Stop Date: 03/16/24 Status: Ordered naproxen 500 mg oral tablet (20 sources) Nonsteroidal Anti-inflammatory Drug Start: 4 take 1 tablet by mouth twice daily as needed for pain Naprosyn 500 mg Tab 500 mg = 1 tab(s), Oral, BID, PRN for pain, # 20 tab(s), Refills(s) 0, Pharmacy: [facility]/pharmacy #[id number], 160, cm, 03/13/24 17:38:00 EDT, Height/Length Dosing, 95.5, kg, 03/13/24 17:38:00 EDT, Weight Dosing Start Date: 03/13/24 Status: Ordered Start: 02-19-2019 End: 03-08-2019 take 500 mg by mouth twice daily at mealtime Naproxen Discontinued 500 MG PO Twice daily February 19, 2019 12:00am March 08, 2019 3:53pm administer with food or milk ondansetron 8 mg disintegrating oral tablet (20 sources) Serotonin-3 Receptor Antagonist Start: 11-09-2022 take 8 mg by mouth every eight hours Ondansetron Active 8 MG PO Q8H 10 November 09, 2022 1:00am Start: 11-07-2022 End: 11-09-2022 Ondansetron Hcl Discontinued 4 MG PO every 6 to 8 hours November 07, 2022 1:00am November 09, 2022 4:12pm Start: 08-20-2022 End: 01-06-2023 Ondansetron Discontinued 4 M G PO every 6 to 8 hours August 20, 2022 12:00am January 06, 2023 5:46pm Start: 05-14-2022 End: 08-18-2022 take 4 mg by mouth every eight hours Ondansetron Discontinued 4 MG PO Q8H 7 May 14, 2022 12:00am August 18, 2022 12:32pm Start: 02-07-2022 End: 03-08-2022 Ondansetron Discontinued 4 M G PO every 6 to 8 hours February 07, 2022 1:00am March 08, 2022 8:15pm Start: 07-15-2021 End: 07-19-2021 take 1 tablet by mouth every eight hours Ondansetron Hcl (Zofran) 4 mg tablet Discontinued 4 MG PO Q8H 10 July 15, 2021 12:00am July 19, 2021 2:07pm Start: 04-14-2021 End: 07-19-2021 take 8 mg by mouth every eight hours Ondansetron Discontinued 8 MG PO Q8H 10 April 14, 2021 12:00am July 19, 2021 2:07pm Start: 10-02-2020 End: 04-14-2021 take 4 mg by mouth every eight hours Ondansetron Discontinued 4 MG PO Q8H October 07, 2020 1:00am January 12, 2021 1:35pm Start: 09-23-2020 End: 01-12-2021 take 4 mg by mouth every eight hours Ondansetron Hcl Discontinued 4 MG PO Q8H September 23, 2020 12:00am January 12, 2021 1:35pm Start: 06-25-2020 End: 07-19-2020 take 4 mg by mouth three times daily Ondansetron Discontinued 4 MG PO Three times daily 10 June 25, 2020 12:00am July 19, 2020 2:22pm Start: 01-03-2020 End: 02-19-2020 take 1 tablet by mouth every eight hours Ondansetron Hcl (Zofran) 4 mg tablet Discontinued 4 MG PO Q8H 6 2 January 03, 2020 1:00am February 19, 2020 6:54pm Start: 10-25-2019 End: 09-23-2020 Ondansetron Discontinued 4 M G PO every 6 to 8 hours April 23, 2020 12:00am May 19, 2020 4:07am Start: 09-30-2019 End: 10-24-2019 take 1 tablet by mouth four times daily Ondansetron Hcl (Zofran) 4 mg tablet Discontinued 4 MG PO Four times daily September 30, 2019 12:00am October 24, 2019 10:46pm Start: 09-30-2019 End: 10-24-2019 Start: 06-24-2019 End: 09-03-2019 take 4 mg by mouth every six hours Ondansetron Discontinued 4 MG PO Q6H June 24, 2019 12:00am September 03, 2019 8:25pm Start: 06-24-2019 End: 09-03-2019 Start: 05-02-2019 End: 09-03-2019 Ondansetron Discontinued 8 M G PO EVERY 8-12 HOURS June 02, 2019 12:00am September 03, 2019 8:25pm Start: 05-02-2019 End: 09-03-2019 take 8 mg by mouth three times daily Ondansetron Discontinued 8 MG PO Three times daily May 02, 2019 12:00am September 03, 2019 8:25pm Start: 02-19-2019 End: 03-08-2019 take 4 mg by mouth every eight hours Ondansetron Discontinued 4 MG PO Q8H February 19, 2019 12:00am March 08, 2019 3:53pm Start: 12-28-2018 End: 05-05-2019 take 1 tablet by mouth three times daily Ondansetron Hcl (Zofran) 8 mg Tablet Discontinued 8 MG PO Three times daily December 28, 2018 1:00am May 05, 2019 8:42pm Start: 09-04-2018 End: 10-16-2018 take 1 tablet by mouth every eight hours Ondansetron (Zofran Odt) 4 mg tablet,disintegrating Discontinued 4 MG PO Q8H 9 September 04, 2018 12:00am October 16, 2018 4:08pm Start: 08-29-2018 End: 09-01-2018 take 1 tablet by mouth every eight hours Ondansetron (Zofran Odt) 4 mg tablet,disintegrating Discontinued 4 MG PO Q8H 9 August 29, 2018 12:00am September 01, 2018 12:02am Start: 03-27-2018 End: 04-06-2018 take 1 tablet by mouth every four hours Ondansetron (Zofran Odt) 4 mg Tablet,Disintegrating Discontinued 4 MG PO Q4H March 27, 2018 12:00am April 06, 2018 12:29am administer first dose 30 minutes before start of emetogenic chemotherapy Start: 03-27-2018 End: 04-06-2018 Start: 01-03-2018 End: 01-17-2018 Ondansetron (Zofran Odt) 4 m g tablet,disintegrating Discontinued 8 MG PO Q8H 9 January 03, 2018 1:00am January 17, 2018 3:10am Start: 01-03-2018 End: 01-17-2018 Start: 10-03-2017 End: 10-06-2017 take 1 tablet by mouth every eight hours Ondansetron (Zofran Odt) 4 mg tablet,disintegrating Discontinued 4 MG PO Q8H October 03, 2017 1:00am October 06, 2017 1:12am Start: 10-03-2017 End: 10-16-2018 take 8 mg by mouth every eight hours Ondansetron Discontinued 8 MG PO Every 8 hours October 03, 2017 1:00am October 16, 2018 4:08pm take 1 tablet by kathe th every six hours as needed for vomiting Zofran 8 MG 1 tablet Orally q6h prn for vomiting for 5 days PRN Active promethazine hydrochloride 25 mg rectal suppository (20 sources) Phenothiazine Start: 03-13-2024 take 25 mg rectal route every six hours as needed for nausea Phenergan 25 mg Supp 25 mg = 1 supp, Rectal, q6hr, PRN Nausea/Vomiting, # 6 EA, Refills(s) 0, Pharmacy: [facility]/pharmacy #[id number], 160, cm, 03/13/24 17:38:00 EDT, Height/Length Dosing, 95.5, kg, 03/13/24 17:38:00 EDT, Weight Dosing Start Date: 03/13/24 Status: Ordered Start: 05-25-2023 take 12.5 mg by mout h three times daily Promethazine Active 12.5 MG PO Three times daily May 25, 2023 8:37am Start: 01-02-2023 Promethazine A ctive 25 MG OR Q6H January 02, 2023 1:00am Start: 12-31-2022 End: 05-25-2023 take 25 mg by mouth three times daily Promethazine Discontinued 25 MG PO Three times daily January 07, 2023 1:00am May 25, 2023 8:36am Start: 05-15-2022 End: 08-18-2022 take 25 mg by mouth three times daily Promethazine Discontinued 25 MG PO Three times daily May 15, 2022 12:00am August 18, 2022 12:33pm Start: 02-09-2022 End: 03-08-2022 Promethazine Discontinued 25 MG OR Q6H February 09, 2022 12:00am March 08, 2022 8:15pm Start: 09-30-2021 End: 03-08-2022 Promethazine Discontinued 12 .5 MG PO Three times daily 15 February 07, 2022 1:00am March 08, 2022 8:15pm 3 doses during day; last dose no later than 4 hr before bedtime Start: 09-30-2021 End: 02-06-2022 Promethazine Discontinued 12 .5 MG PO Twice daily September 30, 2021 12:00am February 06, 2022 11:25am 3 doses during day; last dose no later than 4 hr before bedtime Start: 09-30-2021 End: 10-08-2021 Promethazine Discontinued 12 .5 MG OR Once September 30, 2021 12:00am October 08, 2021 9:34pm Start: 09-30-2021 End: 10-08-2021 Start: 04-23-2020 End: 06-25-2020 take 12.5 mg by mouth every six hours Promethazine Discontinued 12.5 MG PO Q6H April 23, 2020 12:00am June 25, 2020 5:37pm Start: 04-23-2020 End: 06-25-2020 Start: 03-21-2020 End: 06-25-2020 take 12.5 mg by mouth every eight hours Promethazine Discontinued 12.5 MG PO Every 8 hours March 21, 2020 12:00am June 25, 2020 5:37pm Start: 03-21-2020 End: 06-25-2020 Start: 05-10-2019 End: 09-03-2019 Promethazine (Phenergan) 25 mg suppository Discontinued 25 MG OR Q4H May 10, 2019 12:00am September 03, 2019 8:25pm Start: 03-08-2019 End: 03-23-2019 take 25 mg by mouth every four to six hours Promethazine Discontinued 25 MG PO EVERY 4-6 HOURS March 08, 2019 12:00am March 23, 2019 5:49pm Start: 02-13-2018 End: 03-13-2018 Promethazine (Phenergan) 25 mg suppository Discontinued 25 MG OR Q8H February 13, 2018 12:00am March 13, 2018 10:44pm Start: 01-03-2018 End: 10-16-2018 Promethazine Discontinued 25 MG OR Q6H April 23, 2018 6:04pm October 16, 2018 4:08pm Start: 10-03-2017 End: 04-06-2018 take 25 mg by mouth every twelve hours Promethazine Discontinued 25 MG PO Q12H October 03, 2017 1:00am April 06, 2018 12:30am Start: 08-24-2016 End: 01-06-2023 take 25 mg by mouth every six hours Promethazine Discontinued 25 MG PO Q6H August 19, 2022 12:00am August 19, 2022 8:05pm traZODone hydrochloride 100 mg oral tablet (20 sources) Serotonin Reuptake Inhibitor Start: 05-25-2023 take 100 mg by mouth once daily Trazodone Active 100 MG PO Daily May 25, 2023 12:00am Start: 06-08-2022 End: 08-19-2022 take 50 mg by mouth once daily at bedtime Trazodone Discontinued 50 MG PO Daily at bedtime June 08, 2022 12:00am August 19, 2022 8:05pm Completed/Discontinued Medications Medication Drug Class(es) Dates Sig (Normalized) Sig (Original) [id number] 200 actuat albuterol 0.09 mg/actuat metered dose inhaler (20 sources) beta2-Adrenergic Agonist Start: 08-20-2021 End: 09-05-2021 Albuterol Sulfate Discontinued 2 INH INHALATION Q6H August 20, 2021 12:00am September 05, 2021 11:25pm administer with spacer Start: 08-20-2021 End: 09-05-2021 Start: 05-05-2019 End: 09-03-2019 take 1 puff(s) by inhalation every four to six hours Albuterol Sulfate (Proventil Hfa) 90 mcg/actuation Hfa Aerosol Inhaler Discontinued 2 PUFF INHALATION EVERY 4-6 HOURS May 05, 2019 12:00am September 03, 2019 8:24pm with spacer Start: 05-05-2019 End: 09-03-2019 Start: 12-21-2017 End: 07-19-2021 take 1 puff(s) by inhalation every four to six hours Albuterol Sulfate Discontinued 2 PUFF INHALATION EVERY 4-6 HOURS December 21, 2017 12:00am July 19, 2021 1:07pm Start: 12-21-2017 End: 07-19-2021 take 1 puff(s) by inhalation every four to six hours Albuterol Sulfate Discontinued 2 PUFF INHALATION EVERY 4-6 HOURS December 21, 2017 1:00am July 19, 2021 2:07pm Start: 08-27-2017 take 2 puff(s) by in halation every four hours as needed for wheezing Albuterol Sulfate HFA 108 (90 Base) MCG/ACT 2 puffs as needed Inhalation every 4 hrs prn for wheezing for 5 days PRN Jul, Active amitriptyline hydrochloride 25 mg oral tablet (20 sources) Tricyclic Antidepressant Start: 04-23-2018 End: 05-08-2018 take 10 mg by mouth at bedtime Amitriptyline Discontinued 10 MG PO Bedtime April 23, 2018 12:00am May 08, 2018 6:55pm Start: 04-23-2018 End: 05-08-2018 Start: 03-13-2018 End: 03-22-2018 take 5 mg by mouth at bedtime Amitriptyline Discontinu ed 5 MG PO Bedtime March 13, 2018 12:00am March 22, 2018 8:18am Start: 03-13-2018 End: 03-22-2018 amoxicillin 500 mg oral tablet (20 sources) Penicillin-class Antibacterial Start: 12-11-2019 End: 12-15-2019 take 500 mg by mouth twice daily Amoxicillin Discontinued 500 MG PO Twice daily December 11, 2019 1:00am December 14, 2019 7:24pm Start: 09-30-2019 End: 10-24-2019 take 500 mg by mouth three times daily Amoxicillin Discontinued 500 MG PO Three times daily September 30, 2019 12:00am October 24, 2019 10:47pm Start: 09-30-2019 End: 10-24-2019 Start: 03-13-2018 End: 03-22-2018 take 500 mg by mouth every eight hours Amoxicillin Discontinued 500 MG PO Q8H March 13, 2018 12:00am March 22, 2018 8:19am Start: 10-31-2017 End: 11-10-2017 take 500 mg by mouth every twelve hours Amoxicillin Discontinued 500 MG PO Q12H 16 09October 31, 2017 1:00am November 10, 2017 1:03am Start: 10-31-2017 End: 11-10-2017 amoxicillin 875 mg / clavulanate 125 mg oral tablet (20 sources) Penicillin-class Antibacterial Start: 09-27-2021 End: 02-06-2022 take 1 tablet by mouth twice daily Amoxicillin-Pot Clavulanate (Augmentin) 875-125 mg tablet Discontinued 1 TAB PO Twice daily September 27, 2021 12:00am February 06, 2022 11:25am Start: 09-27-2021 End: 02-06-2022 Start: 12-15-2019 End: 12-31-2019 take 1 tablet by mouth twice daily Amoxicillin-Pot Clavulanate (Augmentin) 875-125 mg tablet Discontinued 1 TAB PO Twice daily 14 December 15, 2019 1:00am December 31, 2019 1:37pm Start: 12-15-2019 End: 12-31-2019 Start: 08-23-2018 End: 10-16-2018 take 1 tablet by mouth twice daily Amoxicillin-Pot Clavulanate (Augmentin) 875-125 mg tablet Discontinued 1 TAB PO Twice daily 16 09August 23, 2018 12:00am October 16, 2018 4:01pm Start: 08-23-2018 End: 10-16-2018 atenolol 25 mg oral tablet (19 sources) beta-Adrenergic Adán Start: 10-03-2017 End: 07-30-2018 take 25 mg by mouth at bedtime Atenolol Discontinued 25 MG PO Bedtime October 03, 2017 1:00am July 30, 2018 10:46pm Start: 10-03-2017 End: 07-30-2018 azithromycin 250 mg oral tablet (20 sources) Macrolide Antimicrobial Start: 05-29-2021 End: 07-19-2021 take 2-5 tablets by mouth once daily Azithromycin (Zithromax Z-Ayana) 250 mg tablet Discontinued 0 PO .COMPLEX 6 May 29, 2021 12:00am July 19, 2021 2:07pm take 500 mg today (day 1), then 250 mg for 4 days (days 2-5) Start: 01-07-2020 End: 02-19-2020 take 2-5 tablets by mouth once daily Azithromycin (Zithromax Z-Ayana) 250 mg Tablet Discontinued 1 dose pk PO as directed on dose pack January 07, 2020 1:00am February 19, 2020 6:53pm take 500 mg today (day 1), then 250 mg for 4 days (days 2-5) Start: 08-17-2018 End: 08-23-2018 take 1 tablet by mouth once daily Azithromycin (Zithromax) 250 mg Tablet Discontinued 250 MG PO Daily August 17, 2018 12:00am August 23, 2018 5:22pm Beclomethasone Dipropionate (19 sources) Corticosteroid Start: 10-03-2017 End: 10-16-2018 Start: 10-03-2017 End: 10-16-2018 Beclomethasone Dipropionate Discontinued 80 MCG INHALATION As Directed October 03, 2017 12:00am October 16, 2018 3:01pm Start: 10-03-2017 End: 10-16-2018 Beclomethasone Dipropionate Discontinued 80 MCG INHALATION As Directed October 03, 2017 1:00am October 16, 2018 4:01pm benzonatate 100 mg oral capsule (20 sources) Non-narcotic Antitussive Start: 05-02-2019 End: 09-03-2019 take 1 capsule by mouth three times daily Benzonatate (Tessalon Perles) 100 mg capsule Discontinued 100 MG PO Three times daily May 02, 2019 12:00am September 03, 2019 8:24pm Start: 02-08-2019 End: 03-08-2019 take 1 capsule by mouth three times daily Benzonatate (Tessalon Perles) 100 mg capsule Discontinued 100 MG PO Three times daily February 08, 2019 12:00am March 08, 2019 3:53pm cholecalciferol 0.125 mg oral capsule (20 sources) Vitamin D Start: 10-16-2018 End: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 pain; Translations: [Abdominal pain] Onset: 08-25-2017 07-15-2021 Episodic Conditions associated with dizziness or vertigo (20 sources) Dizziness; Translations: [Dizziness and giddiness] Onset: 01-02-2023 04-30-2019 Episodic Fever of unknown origin (1 source) Fever, unspecified; Translations: [Fever, unspecified] Onset: 03-15-2023 Episodic Fluid and electrolyte disorders (20 sources) Dehydration; Translations: [Dehydration] Onset: 08-20-2022 08-20-2022 Episodic Nausea and vomiting (20 sources) Adverse reaction to cannabis; Translations: [Nausea with vomiting, unspecified] Onset: 10-31-2022 05-14-2022 Episodic Other disorders of stomach and duodenum (1 source) Functional dyspepsia; 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] Onset: 08-20-2022 Episodic Other upper respiratory infections (20 sources) Upper respiratory infection; Translations: [Acute upper respiratory infection, unspecified] Onset: 03-15-2023 12-21-2017 Episodic Spondylosis; intervertebral disc disorders; other back problems (1 source) Dorsalgia, unspecified; Translations: [Dorsalgia, unspecified] Onset: 08-25-2017 Episodic Unclassified (1 source) Vomiting, unspecified; Translations: [Vomiting, unspecified] Onset: 08-25-2017 Unclassified (1 source) Tachycardia, unspecified; Translations: [Tachycardia, unspecified] Onset: 08-25-2017 Results Test Name Value Interpretation Reference Range Facility CBC w/ Auto Diffon 4 Basophils/100 WBC (Bld) 0.4 % Normal 0.0-2.0 [facility] Comment on above: Performed By: #### 2 394919, [id number], 5112108, 6599431 ####[facility] [address] [place] [address] Basophils/Leukocytes Auto (Bld) [Pure # fraction] 0.1 E9/L Normal 0.0-0.2 [facility] Comment on above: Performed By: #### 2 364381, 02271901, 5966189, 1552747 ####[address] [address] Eosinophils (Bld) [#/Vol] 0.0 E9/L Normal 0.0-0.5 [facility] Comment on above: Performed By: #### 2 621199, 03889058, 9825016, 4212859 ####[address] [address] Eosinophils/100 WBC (Bld) 0.3 % Normal 0.0-8.0 [facility] Comment on above: Performed By: #### 2 679113, 86571655, 6315753, 6899994 ####[address] [address] Erythrocyte distribution width (RBC) [Ratio] 14.1 % Normal 10.9-14.2 [facility] Comment on above: Performed By: #### 2 358880, 90561976, 4168189, 1248520 ####[address] [address] Hematocrit (Bld) [Volume fraction] 44.0 % Normal 34.0-46.0 [facility] Comment on above: Performed By: #### 2 031263, 81879674, 0051064, 0666142 ####[address] [address] Hemoglobin (Bld) [Mass/Vol] 14.4 g/dL Normal 12.0-16.0 [facility] Comment on above: Performed By: #### 2 188493, 85580593, 4131611, 3020323 ####[address] [address] Lymphocytes (Bld) [#/Vol] 2.2 E9/L Normal 1.0-4.0 [facility] Comment on above: Performed By: #### 2 099282, 24866250, 6865827, 9743645 ####[address] [address] Lymphocytes/100 WBC (Bld) 15.8 % Normal 14.0-50.0 [facility] Comment on above: Performed By: #### 2 982162, 77905634, 2344281, 4949048 ####[address] [address] MCH (RBC) [Entitic mass] 27.8 pg Normal 27.0-34.0 [facility] Comment on above: Performed By: #### 2 504881, 42572661, 8991886, 7373526 ####[address] [address] MCHC (RBC) [Mass/Vol] 32.6 g/dL Normal 31.4-36.0 [facility] Comment on above: Performed By: #### 2 596258, 41437622, 9859204, 3416831 ####[address] [address] MCV (RBC) [Entitic vol] 85.2 fL Normal 80.0-100.0 [facility] Comment on above: Performed By: #### 2 800780, 86179155, 5364587, 9207171 ####[address] [address] Monocytes (Bld) [#/Vol] 1.1 E9/L High 0.2-1.0 [facility] Comment on above: Performed By: #### 2 669036, 07606448, 2761126, 3368531 ####[address] [address] Neutrophils (Bld) [#/Vol] 10.6 E9/L High 2.0-7.5 [facility] Comment on above: Performed By: #### 2 086201, 10765925, 2922622, 3700404 ####[address] [address] Neutrophils/100 WBC (Bld) 75.9 % High 36.0-75.0 [facility] Comment on above: Performed By: #### 2 616004, 27536020, 7920051, 8134397 ####[address] [address] Platelet mean volume (Bld) [Entitic vol] 8.4 fL Normal 6.4-10.8 [facility] Comment on above: Performed By: #### 2 536032, 84702240, 9621292, 8309514 ####[address] [address] Platelets (Bld) [#/Vol] 276.0 E9/L Normal 150.0-500. 0 [facility] Comment on above: Performed By: #### 2 202403, 04860017, 7585130, 2249997 ####[address] [address] RBC (Bld) [#/Vol] 5.2 E12/L Normal 4.3-5.9 [facility] Comment on above: Performed By: #### 2 542768, 98050142, 9297154, 1549801 ####[address] [address] WBC corrected for nucl RBC Auto (Bld) [#/Vol] 14.0 E9/L High 4.0-11.0 [facility] Comment on above: Performed By: #### 2 277245, 44216654, 5958804, 0062014 ####[address] [place] [address] CHEMISTRYOrdered By: [employer] SYSTEM on 03-15-2024 Albumin [Mass/Vol] 5.0 g/dL Normal 3.3 - 5.0 gm/dL Remisol Chem Albumin/Globulin [Mass ratio] 1.8 {ratio} Normal 1.1 - 2.2 Remisol Chem ALP [Catalytic activity/Vol] 69 [iU]/d Normal 21 - 98 Int._Unit/ L Remisol Chem ALT No additional P-5'-P [Catalytic activity/Vol] 31 [iU]/d Normal 6 - 46 Int._Unit/ L Remisol Chem Anion gap [Moles/Vol] 22 mmol/L High 6 - 16 mEq/L Remisol Chem AST [Catalytic activity/Vol] 19 [iU]/d Normal 5 - 43 Int._Unit/ L Remisol Chem Bilirubin [Mass/Vol] 0.8 mg/dL Normal 0.0 - 1 .1 mg/dL Rem[facility] Chem Calcium [Mass/Vol] 10.4 mg/dL Normal 8.9 - 11. 1 mg/dL [facility] CO2 [Moles/Vol] 19 mmol/L Low 21 - 31 mmol/L Remisol Chem Creatinine [Mass/Vol] 0.8 mg/dL Normal 0.5 - 1.3 mg/dL Remisol Chem eGFR 108 mL/min/1.73 m2 Normal >=59mL/mi n /1.73 m2 Remisol Chem Globulin (S) [Mass/Vol] 2.8 g/dL Normal 1.4 - 4.0 gm/dL [facility] Chem Glucose [Mass/Vol] 86 mg/dL Normal 55 - 199 mg/dL [facility] Chem Magnesium [Mass/Vol] 2.2 mg/dL Normal 1.3 - 2 .4 mg/dL Rem[facility] Chem Protein [Mass/Vol] 7.8 g/dL Normal 6.0 - 7.8 gm/dL Remisol Chem Urea nitrogen [Mass/Vol] 24 mg/dL High 5 - 21 mg/dL Remisol Chem Urea nitrogen/Creatinine [Mass ratio] 30 mg/mg High 10 - 20 [facility] CHEMISTRYOrdered By: Manish carpio on 03-15-2024 Chloride [Moles/Vol] 99 mmol/L Low 101 - 1 11 mmol/L Remisol Chem Potassium [Moles/Vol] 3.3 mmol/L Low 3.5 - 5.3 mmol/L Remisol Chem Sodium [Moles/Vol] 137 mmol/L Normal 135 - 145 mmol/L Remisol Chem CMPon 03-15-2024 Chloride [Moles/Vol] 99 mmol/L Low 101-111 [facility] Comment on above: Performed By: #### 2 460477, 80900907, 6096427, 3380871 ####[facility] [address] [place] [address] Potassium [Moles/Vol] 3.3 mmol/L Low 3.5-5.3 [facility] Comment on above: Performed By: #### 2 108997, 20433833, 7691975, 6950855 ####[facility] [address] [place] [address] Sodium [Moles/Vol] 137 mmol/L Normal 135-145 [facility] Comment on above: Performed By: #### 2 737658, 60730858, 9445547, 9300343 ####[facility] [address] [place] [address] Anion gap [Moles/Vol] 22 mmol/L High 6-16 [facility] Comment on above: Performed By: #### 2 784018, 57758464, 0797013, 7992479 ####[facility] [address] [place] [address] CO2 [Moles/Vol] 19 mmol/L Low 21-31 [facility] Comment on above: Performed By: #### 2 221648, 37935724, 8557441, 8411595 ####[facility] [address] [place] [address] Albumin [Mass/Vol] 5.0 g/dL Normal 3.3-5.0 [facility] Comment on above: Performed By: #### 2 036603, 70655944, 6589064, 1175291 ####[facility] [address] [place] [address] Albumin/Globulin (S) [Mass conc ratio] 1.8 Normal 1.1-2.2 [facility] Comment on above: Performed By: #### 2 855936, 95024767, 5286725, 5557646 ####[facility] [address] [place] [address] ALP [Catalytic activity/Vol] 69 Int._Unit/L Normal 21-98 [facility] Comment on above: Performed By: #### 2 287765, 17332162, 8797259, 5258984 ####[facility] [address] [place] [address] ALT No additional P-5'-P [Catalytic activity/Vol] 31 Int._Unit/L Normal 6-46 [facility] Comment on above: Performed By: #### 2 367722, 63589592, 1956429, 3718859 ####[facility] [address] [place] [address] AST [Catalytic activity/Vol] 19 Int._Unit/L Normal 5-43 [facility] Comment on above: Performed By: #### 2 140721, 43116010, 8573535, 1415987 ####[facility] [address] [place] [address] Bilirubin [Mass/Vol] 0.8 mg/dL Normal 0.0-1.1 [facility] Comment on above: Performed By: #### 2 973633, 59145390, 5397152, 1248328 ####[facility] [address] [place] [address] Calcium [Mass/Vol] 10.4 mg/dL Normal 8.9-11.1 [facility] Comment on above: Performed By: #### 2 722405, 51534060, 6117098, 2801156 ####[facility] [address] [place] [address] Creatinine [Mass/Vol] 0.8 mg/dL Normal 0.5-1.3 [facility] Comment on above: Performed By: #### 2 667184, 92694463, 2020132, 7228983 ####[facility] [address] [place] [address] Globulin (S) [Mass/Vol] 2.8 g/dL Normal 1.4-4.0 [facility] Comment on above: Performed By: #### 2 323072, 28407555, 5762484, 5947546 ####[facility] [address] [place] [address] Glucose [Mass/Vol] 86 mg/dL Normal 55-199 [facility] Comment on above: Performed By: #### 2 881512, 53745126, 5118602, 6180349 ####[facility] [address] [place] [address] Protein [Mass/Vol] 7.8 g/dL Normal 6.0-7.8 [facility] Comment on above: Performed By: #### 2 434074, 07963117, 9816301, 3496476 ####[facility] [address] [place] [address] Urea nitrogen [Mass/Vol] 24 mg/dL High 5-21 [facility] Comment on above: Performed By: #### 2 616782, 27617298, 3937540, 4735929 ####[facility] [address] [place] [address] Urea nitrogen/Creatinine [Mass ratio] 30 No Units High 10-20 [facility] Comment on above: Performed By: #### 2 943282, 50421514, 7871499, 7896409 ####[facility] [address] [place] [address] CT Chest w/ Contraston 03-15 CT Chest w/ Contrast Exam Date/Time: 03/15/2024 11:36 EDT Reason for Exam: Pneumomediastinum/pneumotho rax;Other (please specify) Report IMPRESSION: NEARLY RESOLVED MINIMAL PNEUMOMEDIASTINUM FROM 03/15/2024. NO OTHER SIGNIFICANT CHANGES IDENTIFIED. EXAM: CT Chest w/ Contrast, CT Spine Thoracic DATE: 03/15/2024 11:23 AM CLINICAL HISTORY: Pneumomediastinum/pneumotho rax. COMPARISON: Chest, abdomen and pelvis CTs 03/13/2024. TECHNIQUE: Spiral imaging was obtained of the chest after the infusion of approximately 100 mL of Isovue 300 contrast. Routine multiplanar reformatted reconstructions were performed; including dedicated reconstructions of the thoracic spine. All CT scans at this facility use dose modulation, iterative reconstruction, and/or weight based dosing when appropriate to reduce radiation dose to as low as reasonably achievable. Unless otherwise stated, incidental findings identified in this report do not require routine follow-up imaging. CHEST CT FINDINGS: Minimal pneumomediastinum noted on the prior study has diminished with mild residual within the right hilum. Trace air within the central inferior aspect of the right major intralobular fissure again noted. There are no displaced fractures, evidence of pulmonary contusion, organized hematoma, pleural or pericardial effusion, evidence of great vessel injury, or other significant changes identified. No significant coronary artery calcifications identified, within the limits of cardiac motion artifact. The included imaging of the abdomen is noncontributory. THORACIC SPINE CT FINDINGS: The spine is visualized from the C6-C7 level through L2-3. There is no fracture, dislocation, evidence of instability, acute paraspinal soft tissue abnormalities, or significant changes from 03/13/2024 identified. Report Ordering Provider: August Bermudez FINAL REPORT Dictated: 03/15/2024 11:52 am Anslemo Dolan MD Signed (Electronic Signature): 03/15/2024 11:52 am Signed by: Anselmo Dolan MD Transcribed by: KIRA Technologist: DIANA Technical Comments GFR (mL/min/1/73m2) na- age Contrast: Isovue 300 Contrast amount in ml's: 100 Normal [facility] Consent for Treatmenton 02-26 Consent for Treatment [id number] Normal [facility] Discharge Instructionson Discharge Instructions [id number] Normal [facility] ED Clinical Summaryon 2023 ED Clinical Summary (Inserted Image. Vesta ble to display) [place] [id number] ED Clinical Summary Person Information Name: PILI PARIKH/Nathan Age: 19 Years : 2005 Sex: Female Language: [place] PCP: MODESTA ARCHIBALD Marital Status: Single Visit Id: Visit Reason: Vomiting; Nausea; Back pain; DR BERMUDEZ CALLED TO COME BACK IN Speciality: Acuity: 3 Enc Type: Emergency Med Service: Emergency Arrival: 03/15/2024 10:32:10 Discharge: 03/15/2024 13:49:36 LOS: 000 03:17 Checkin: 03/15/2024 10:32:10 Checkout: 03/15/2024 13:49:36 Dispo Type: Home (Routine DC) EVENTS: Event Name Event Status Request Date/Time Start Date/Time Complete Date/Time Arrive Complete 03/15/2024 10:32:10 03/15/2024 10:32:10 03/15/2024 10:32:10 Document Home Meds Request 03/15/2024 10:32:10 Triage Complete 03/15/2024 10:32:10 03/15/2024 10:40:42 03/15/2024 10:40:42 Bed Assign Complete 03/15/2024 10:35:01 03/15/2024 10:35:01 03/15/2024 10:35:01 Dr Exam Complete 03/15/2024 10:35:01 03/15/2024 10:35:56 03/15/2024 10:35:56 RN Exam Complete 03/15/2024 10:35:01 03/15/2024 11:37:54 03/15/2024 11:37:54 Registration Complete 03/15/2024 10:35:56 03/15/2024 10:44:04 03/15/2024 10:44:04 Reg Complete Request 03/15/2024 10:44:04 Reg Bed Request Complete 03/15/2024 10:44:04 03/15/2024 10:44:04 03/15/2024 10:44:04 Pending Labs Inlab 03/15/2024 10:54:26 Lab Inlab 03/15/2024 10:54:26 CT Complete 03/15/2024 10:54:26 03/15/2024 11:23:43 03/15/2024 11:36:10 Meds Admin Complete 03/15/2024 10:54:54 03/15/2024 11:28:07 Pending Labs Complete 03/15/2024 11:37:27 03/15/2024 11:37:27 03/15/2024 12:53:18 Lab Complete 03/15/2024 11:37:27 03/15/2024 11:37:27 03/15/2024 12:53:18 Fall Risk Request 03/15/2024 11:37:54 Meds Admin Complete 03/15/2024 11:48:19 03/15/2024 12:02:15 Discharge Complete 03/15/2024 13:33:30 03/15/2024 13:49:40 03/15/2024 13:49:40 Transfer Complete 03/15/2024 13:49:40 03/15/2024 13:49:40 03/15/2024 13:49:40 ADDRESS: [address] [place] [id number] [facility] DOC NOTES: MEDICAL INFORMATION: Prescriptions Given: Medications to Continue with No Changes Other Medications acetaminophen-hydrocodone ([place] 325 mg-5 mg oral tablet) 1 Tablets By Mouth every 6 hours as needed for pain for 3 Days. Refills: 0. methocarbamol (Robaxin 500 mg Tab) 1 Tablets By Mouth 3 times a day for 3 Days. Refills: 0. naproxen (Naprosyn 500 mg Tab) 1 Tablets By Mouth 2 times a day as needed for pain. Refills: 0. promethazine (Phenergan 25 mg Supp) 1 Suppositories By rectum every 6 hours as needed Nausea/Vomiting. Refills: 0. PATIENT EDUCATION INFORMATION: Instructions: Pneumomediastinum; Nausea and Vomiting, Adult Follow up: With: Address: When: Kirk Serrano In 1 week 03/22/2024 Comments: Make sure to follow-up with Dr. Serrano at the surgery clinic in 1 week as instructed. Return to the emergency room if you develop chest pain, shortness of breath or any symptoms. DIAGNOSIS: 1:Nausea and vomiting; 2:Pneumomediastinum Normal [facility] ED Note-Physicianon 03-15-20 ED Note-Physician Basic Information Time Seen: Ebony BirminghamAugust 03/15/2024 10:35 Chief Complaint pt. states Dr. Bermudez called to come back for further evaluation. states she is having post. mid back pain with N/V. states she has been wheezing but denies any CP or SOB. smoker. History of Present Illness The patient is a 19-year-old female who presented to the emergency room with her father because of discrepancy on a recent CAT scan. The patient was seen in the emergency room on March 13 for fall down the steps. Our radiologist has read the CAT scan as the pneumomediastinum and pneumothorax. I called initially the patient and unable to leave a message. I called her father and the patient called back. With patient's permission I discussed the discrepancy findings with the patient and her father and instructed the patient to come to the emergency room for repeat CAT scan. The patient states that she has been feeling nauseated and vomiting. She still has some back pain and points to the mid back area. The patient denies any chest pain. She denies any other associated symptoms or any other complaints. Review of Systems Additional ROS info: Except as noted in the above Review of Systems and in the History of Present Illness all other systems have been reviewed and are negative or noncontributory. Physical Exam Vitals & Measurements T: 36.4 ?C(Tympanic) HR: 52(Monitored) RR: 18 BP: 148/87 SpO2: 100% HT: 160 cm WT: 95.5 kg BMI: 37.3 General: alert, no acute distress Skin: warm, dry, Head: no trauma, normocephalic Neck: Trachea midline, no tenderness, supple, no subcutaneous crepitus Eye: normal conjunctiva, sclera clear, ENMT: Oral mucosa moist, Cardiovascular: regular rate and rhythm, Respiratory: Lungs CTA, respirations non labored, breath sounds equal Chest wall: no deformity,notenderness, no crepitus on the chest wall Gastrointestinal: soft, non distended, no tenderness, no guarding Back: Mild generalized tenderness mid back, Normal ROM, Normal alignment, no step-offs. Extremities: no deformity, no trauma Neurological: Alert and oriented, motor strength equal & normal bilaterally, sensation equal & normal bilaterally, speech normal, no focal neuro deficits Psychiatric: cooperative, affect appropriate for age, Medical Decision Making MEDICAL DECISION MAKING Number and Complexity of Problems Differential Diagnosis: [] [facility] Data External documents reviewed: [] My EKG interpretation: [] My CT interpretation: [] My X-ray interpretation: [] My Ultrasound interpretation: [] Decision rules/scores evaluated: [] Discussed with: Dr. Serrano Treatment and Disposition ED Course: The patient was called to come back to the emergency room because of discrepancy. She was seen in the emergency room couple days ago for fall down the steps. The radiologist is reading as pneumothorax and pneumomediastinum. The patient was called and brought back to the emergency room. She is complaining of still some back pain and she reported some nausea and vomiting. The patient was given Zofran. IV fluid. Her nausea improved. She was given morphine for pain. CT of the chest with IV contrast was repeated and per radiologist and nearly resolved pneumomediastinum and small air under the fissure on the right. The case was discussed with Dr. Serrano surgery who have reviewed the images himself and they recommend patient be discharged home and follow-up with the surgery in 1 week. The patient has nausea medication at home. She is instructed to return to the emergency room if her vomiting recurs, chest pain, shortness of breath or any new symptoms. Shared decision making: Patient and her father Code status: [] Assessment/Plan 1. Nausea and vomiting (R11.2: Nausea with vomiting, unspecified) 2. 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) Orders: morphine, 4 mg = 1 mL, Injection, IV Push, Once, Stop date 03/15/24 11:48:00 EDT, STAT, Start date 03/15/24 11:48:00 EDT, 03/15/24 11:48:00 EDT ondansetron, 4 mg = 2 mL, Injection, IV Push, Once, Stop date 03/15/24 10:54:00 EDT, STAT, Start date 03/15/24 10:54:00 EDT, 03/15/24 10:54:00 EDT Sodium Chloride 0.9% intravenous solution, 1,000 mL, Soln-IV, IV, Once, Stop date 03/15/24 10:54:00 EDT, STAT, Start date 03/15/24 10:54:00 EDT, Infuse over 61, minute(s) CBC w/ Auto Diff Comprehensive Metabolic Panel CT Chest w/ Contrast eGFR Magnesium Level Medications Administered Given morphine 4 mg/mL Inj, 4 mg, IV Push NS 1000 ml Bolus, 1000 mL, IV Zofran 4 mg/2 mL Injection, 4 mg, IV Push Disposition Plan Patient Discharge Condition Stable, improved Discharge Disposition Discharge home Discharge Prescription List Prescriptions No active prescription medications Follow-up With When Contact Information Kirk Serrano In 1 week 03/22/2024 EDT Additional Instructions: Make sure to follow-up with Dr. Serrano at the surgery clinic in 1 week as instructed. Return to (more content not included)... Normal [facility] Comment on above: Result Comment: Elec tronically Signed By: Ebony Birmingham, August Carbone\.br\Date and Time Signed: 03/15/24 16:57 EDT ED Patient Education Noteon 03-15-2024 ED Patient Education Note Gastroenterology Nausea and Vomiting, Adult Nausea is the feeling that you have an upset stomach or that you are about to vomit. As nausea gets worse, it can lead to vomiting. Vomiting is when stomach contents forcefully come out of your mouth as a result of nausea. Vomiting can make you feel weak and cause you to become dehydrated. Dehydration can make you feel tired and thirsty, cause you to have a dry mouth, and decrease how often you urinate. Older adults and people with other diseases or a weak disease-fighting system (immune system) are at higher risk for dehydration. It is important to treat your nausea and vomiting as told by your health care provider. Follow these instructions at home: Watch your symptoms for any changes. Tell your health care provider about them. Eating and drinking ? Take an oral rehydration solution (ORS). This is a drink that is sold at pharmacies and retail stores. ? Drink clear fluids slowly and in small amounts as you are able. Clear fluids include water, ice chips, low-calorie sports drinks, and fruit juice that has water added (diluted fruit juice). ? Eat bland, bezs-oo-apyuzw foods in small amounts as you are able. These foods include bananas, applesauce, rice, lean meats, toast, and crackers. ? Avoid fluids that contain a lot of sugar or caffeine, such as energy drinks, sports drinks, and soda. ? Avoid alcohol. ? Avoid spicy or fatty foods. General instructions ? Take ibmn-xmu-eyucglm and prescription medicines only as told by your health care provider. ? Drink enough fluid to keep your urine pale yellow. ? Wash your hands often using soap and water for at least 20 seconds. If soap and water are not available, use hand bulb farmworker. ? Make sure that everyone in your household washes their hands well and often. ? Rest at home while you recover. ? Watch your condition for any changes. ? Take slow and deep breaths when you feel nauseous. ? Keep all follow-up visits. This is important. Contact a health care provider if: ? Your symptoms get worse. ? You have new symptoms. ? You have a fever. ? You cannot drink fluids without vomiting. ? Your nausea does not go away after 2 days. ? You feel light-headed or dizzy. ? You have a headache. ? You have muscle cramps. ? You have a rash. ? You have pain while urinating. Get help right away if: ? You have pain in your chest, neck, arm, or jaw. ? You feel extremely weak or you faint. ? You have persistent vomiting. ? You have vomit that is bright red or looks like black coffee grounds. ? You have bloody or black stools (feces) or stools that look like tar. ? You have a severe headache, a stiff neck, or both. ? You have severe pain, cramping, or bloating in your abdomen. ? You have difficulty breathing, or you are breathing very quickly. ? Your heart is beating very quickly. ? Your skin feels cold and clammy. ? You feel confused. ? You have signs of dehydration, such as: ? Dark urine, very little urine, or no urine. ? Cracked lips. ? Dry mouth. ? Sunken eyes. ? Sleepiness. ? Weakness. These symptoms may be an emergency. Get help right away. Call 911. ? Do not wait to see if the symptoms will go away. ? Do not drive yourself to the hospital. Summary ? Nausea is the feeling that you have an upset stomach or that you are about to vomit. As nausea gets worse, it can lead to vomiting. Vomiting can make you feel weak and cause you to become dehydrated. ? Follow instructions from your health care provider about eating and drinking to prevent dehydration. ? Take lelt-ltj-zowaupo and prescription medicines only as told by your health care provider. ? Contact your health care provider if your symptoms get worse, or you have new symptoms. ? Keep all follow-up visits. This is important. This information is not intended to replace advice given to you by your health care provider. Make sure you discuss any questions you have with your health care provider. Document Revised: 05/21/2022 Document Reviewed: 05/21/2022 [employer] Patient Education ? 2022 [employer]. Radiology Pneumomediastinum Pneumomediastinum is the presence of air in the mediastinum. This is the area of the body that is between the two lungs, with the breastbone in front of it. Mild cases of this condition may not cause problems. In severe cases, the difference in pressure in the mediastinum and the lung tissue can interfere with the functions of the heart and the lungs. There are two types of pneumomediastinum?secondary and spontaneous. ? Secondary type includes: ? An injury to your chest, lung, intestine, esophagus, or abdomen. ? Complications during chest surgery. ? Spontaneous type includes: ? Inhaling certain drugs or chemicals. ? Smoking or the use of recreational drugs, such as methamphetamines, cocaine, and marijuana. Spontane (more content not included)... Normal [facility] ED Patient Summaryon 024 ED Patient Summary (Inserted Image. Vesta ble to display) [address] [address] Patient Discharge Instructions Person Information Name: PILI PARIKH Age: 19 Years Arrival Date: 03/15/2024 10:32:10 Discharge Diagnosis: 1:Nausea and vomiting; 2:Pneumomediastinum Primary Care Physician: MODESTA ARCHIBALD Provider Information Primary Provider: August Bermudez M.D. Advanced Odd Job Laborer:None The exam and treatment you received in the Emergency Department were for an urgent problem and are not intended as complete care. It is important that you follow up with a doctor, nurse practitioner, or physician?s culture media laboratory assistant for ongoing care. If your symptoms become worse or you do not improve as expected and you are unable to reach your usual health care provider, you should return to the Emergency Department. We are available 24 hours a day. PILI PARIKH has been given the following list of patient education materials, prescriptions and follow-up instructions: Follow-up Instructions: With: Address: When: Kirk Serrano In 1 week 03/22/2024 Comments: Make sure to follow-up with Dr. Serrano at the surgery clinic in 1 week as instructed. Return to the emergency room if you develop chest pain, shortness of breath or any symptoms. In the event that this physician does not participate in your insurance network, please consult with your insurance company to find a nearby participating provider. Patient Education Materials: Pneumomediastinum; Nausea and Vomiting, Adult A MESSAGE TO ALL PATIENTS REGARDING OPIOIDS PRESCRIPTION OPIOIDS: WHAT YOU NEED TO KNOW Prescription opioids can be used to help relieve tsjljucj-kq-towupl pain and are often prescribed following a surgery or injury, or for certain health conditions. These medications can be an important part of the treatment but also come with serious risks. It is important to work with your healthcare provider to make sure you are getting the safest, most effective care. WHAT ARE THE RISKS AND SIDE EFFECTS OF OPIOID USE? Prescription opioids carry serious risks of addiction and overdose, especially with prolonged use. An opioid overdose, often marked by slowed breathing, can cause sudden . The use of prescription opioids can have a number of side effects as well, even when taken as directed: ? Tolerance?meaning you might need to take more of the medication for the same pain relief ? Physical dependence?meaning you have symptoms of withdrawal when a medication is stopped ? Increased sensitivity to pain ? Constipation ? Nausea, vomiting, and dry mouth ? Sleepiness and dizziness ? Confusion ? Depression ? Low levels of testosterone that can result in lower sex drive, energy, and strength ? Itching and sweating RISKS ARE GREATER WITH: ? History of drug misuse, substance use disorder, or overdose ? Mental health conditions (such as depression or anxiety) ? Sleep apnea ? Older age (65 years and older) ? Avoid alcohol while taking prescription opioids. Also, unless specifically advised by your health care provider, medications to avoid include: ? Benzodiazepines (such as Xanax or Valium) ? Muscle relaxants (such as Soma or Flexeril) ? Hypnotics (such as Ambien or Lunesta) ? Other prescription opioids KNOW YOUR OPTIONS Talk to your health care provider about ways to manage your pain that don?t involve prescription opioids. Some of these options may actually work better and have fewer risks and side effects. Options may include: ? Pain relievers such as acetaminophen, ibuprofen, and naproxen ? Some medication that are also used for depression or seizures ? Physical therapy and exercise ? Cognitive behavioral therapy, a psychological, goal-directed approach, in which patients learn how to modify physical, behavioral, and emotional triggers of pain and stress. IF YOU ARE PRESCRIBED OPIOIDS FOR PAIN: ? Never take opioids in greater amounts or more often than prescribed. ? Follow up with your primary health care provider. o Work together to create a plan on how to manage your pain. o Talk about ways to help manage your pain that don?t involve prescription opioids. o Talk about any and all concerns and side effects. ? Help prevent misuse and abuse o Never sell or share prescription opioids. o Never use another person?s prescription opioids. ? Store prescription opioids in a secure place and out of reach of others (this may include visitors, children, friends, and family). ? Safely dispose of unused prescription opioids: Find your community drug take-back program or your pharmacy mail-back program, or flush them down the toilet, following guidance from the Food and Drug Administration (www.fda.gov/Drugs/Resource sForYou). ? Visit www.cdc.gov/drugoverdose to learn about the risks of opioids abuse and overdose. ? If you believe you may be strugg (more content not included)... Normal [facility] HEMATOLOGYOrdered By: SYSTEM SYSTEM on 03-15-2024 Basophils/100 WBC (Bld) 0.4 % Normal 0.0 - 2.0 % Remisol Heme Basophils/Leukocytes Auto (Bld) [Pure # fraction] 0.1 E9/L Normal 0.0 - 0.2 E9/L Remisol Heme Eosinophils (Bld) [#/Vol] 0.0 E9/L Normal 0.0 - 0.5 E9/L Remisol Heme Eosinophils/100 WBC (Bld) 0.3 % Normal 0.0 - 8.0 % Remisol Heme Erythrocyte distribution width (RBC) [Ratio] 14.1 % Normal 10.9 - 14.2 % Remisol Heme Hematocrit (Bld) [Volume fraction] 44.0 % Normal 34.0 - 46.0 % Remisol Heme Hemoglobin (Bld) [Mass/Vol] 14.4 g/dL Normal 12.0 - 16.0 gm/dL Remisol Heme Lymphocytes (Bld) [#/Vol] 2.2 E9/L Normal 1.0 - 4.0 E9/L Remisol Heme Lymphocytes/100 WBC (Bld) 15.8 % Normal 14.0 - 50.0 % Remisol Heme MCH (RBC) [Entitic mass] 27.8 pg Normal 27.0 - 34.0 pg Remisol Heme MCHC (RBC) [Mass/Vol] 32.6 g/dL Normal 31.4 - 36.0 gm/dL Remisol Heme MCV (RBC) [Entitic vol] 85.2 fL Normal 80.0 - 100.0 fL Remisol Heme Monocytes (Bld) [#/Vol] 1.1 E9/L High 0.2 - 1.0 E9/L Remisol Heme Monocytes/100 WBC (Bld) 7.6 % Normal 4.0 - 14.0 % Remisol Heme Neutrophils (Bld) [#/Vol] 10.6 E9/L High 2.0 - 7.5 E9/L Remisol Heme Neutrophils/100 WBC (Bld) 75.9 % High 36.0 - 75.0 % Remisol Heme Platelet mean volume (Bld) [Entitic vol] 8.4 fL Normal 6.4 - 10.8 fL Remisol Heme Platelets (Bld) [#/Vol] 276.0 E9/L Normal 150.0 - 500.0 E9/L Remisol Heme RBC (Bld) [#/Vol] 5.2 E12/L Normal 4.3 - 5.9 E12/L Remisol Heme WBC corrected for nucl RBC Auto (Bld) [#/Vol] 14.0 E9/L High 4.0 - 11.0 E9/L Remisol Heme Magnesiumon 03-15-2024 Magnesium [Mass/Vol] 2.2 mg/dL Normal 1.3-2.4 Gino dasilva [facility] Comment on above: Performed By: #### 2 [id number] ####[facility] [id number] [place] [address] eGFRon 03-15-2024 eGFR 108 mL/min/1.73 m2 Normal >=59 [facility] Comment on above: Order Comment: Order added by Discern Expert. Performed By: #### 2 [id number] ####[facility] [id number] [place] [address] ABO/Rh History Checkon 03-14 ABO/Rh History Check Patient discharged prior Normal [facility] Comment on above: Performed By: #### 2 [id number] ####[facility] [address] [place] [address] CT Abdomen/Pelvis w/ Contras ton 03-14-2024 CT Abdomen/Pelvis w/ Contrast Exam Date/Time: 03/13/2024 19:18 EDT Reason for Exam: ABDOMINAL TRAUMA;Trauma Report PLEASE REFER TO THE CT CHEST REPORT. All CT scans at this facility use dose modulation, iterative reconstruction, and/or weight based dosing when appropriate to reduce radiation dose to as low as reasonably achievable. Unless otherwise stated, incidental findings identified in this report do not require routine follow-up imaging. Ordering Provider: Gasper Lang FINAL REPORT Dictated: 03/14/2024 3:17 pm Erick Ferrer M.D. Signed (Electronic Signature): 03/14/2024 3:17 pm Signed by: Erick Ferrer M.D. Transcribed by: KIRA Technologist: RAVEN Technical Comments GFR (mL/min/1/73m2) n/a age Contrast: Isovue 300 Contrast amount in ml's: 130 Normal [facility] CT Chest w/ Contraston 03-14 CT Chest w/ Contrast Exam Date/Time: 03/13/2024 19:18 EDT Reason for Exam: CHEST TRAUMA, MOD-SEVERE;Trauma Report IMPRESSION: MINIMAL PNEUMOMEDIASTINUM AND MINIMAL RIGHT PNEUMOTHORAX, DISCUSSED IN THE COMMENT. NO EVIDENCE OF ACUTE TRAUMATIC INJURY OF THE ABDOMEN OR PELVIS. CLINICAL HISTORY: Trauma, chest trauma, mod-severe. Patient fell. COMMENT: IV contrast enhanced images were obtained. The contrast opacified thoracic aorta is normal, without evidence of traumatic injury, dissection, or aneurysm. The heart is normal in size. There is no coronary artery calcification. There is no pericardial effusion. No mediastinal hematoma is evident. No mediastinal nor hilar lymphadenopathy is noted. The esophagus is not dilated. There is minimal pneumomediastinum in the inferior middle mediastinum, including gas between the left main stem bronchus and the descending thoracic aorta, gas adjacent to the distal esophagus, and gas posterior to the left atrium extending to the inferior right hilum. Gas then extends from the right hilum into the inferior medial right major fissure, and this gas is consistent with minimal right pneumothorax. No pneumothorax collection elsewhere is noted on either the right or the left. No pulmonary contusion, no airspace opacification, no lung mass, nor pleural effusion is evident. The liver is normal in size and configuration. There is diffuse fatty infiltration of the liver. The liver is otherwise unremarkable. The spleen, pancreas, gallbladder, adrenal glands, and kidneys appear normal. The renal collecting systems are not dilated. No pneumoretroperitoneum is noted. No retroperitoneal hematoma nor lymphadenopathy is evident. The abdominal aorta is normal, without evidence of traumatic injury, dissection, or aneurysm. Evaluation of bowel is limited. The bowel loops are not dilated, and there is no evidence of bowel obstruction. The appendix is not visualized, but there are small dense radiopacities along the posterior cecal wall, suggesting prior appendectomy. Fecal material in the colon limits evaluation. Portions of the colon are collapsed. There is no evidence of diverticulitis. No abdominal inflammatory complex nor free air nor free fluid is noted. There is no pelvic hematoma, no pelvic mass, nor pelvic lymphadenopathy. The uterus is anteverted. The urinary bladder is unremarkable. No sternal fracture nor displaced rib fracture is evident. No pelvic bone fracture nor hip fracture is noted. There is no hip dislocation. Report CT THORACIC SPINE: There is minimal thoracic dextroscoliosis. The thoracic vertebral bodies are maintained in height. The posterior elements are intact. No thoracic spine fracture is noted. CT LUMBOSACRAL SPINE: There is small Schmorl's node of the superior endplate of L2, with sclerosis of adjacent superior endplate. The lumbar vertebral bodies are maintained in height. The posterior elements are intact. No lumbosacral spine fracture nor subluxation is noted. All CT scans at this facility use dose modulation, iterative reconstruction, and/or weight based dosing when appropriate to reduce radiation dose to as low as reasonably achievable. Unless otherwise stated, incidental findings identified in this report do not require routine follow-up imaging. Ordering Provider: Gasper Lang FINAL REPORT Dictated: 03/14/2024 3:17 pm Erick Ferrer M.D. Signed (Electronic Signature): 03/14/2024 3:17 pm Signed by: Erick Ferrer M.D. Transcribed by: KIRA Technologist: RAVEN Technical Comments GFR (mL/min/1/73m2) n/a age Contrast: Isovue 300 Contrast amount in ml's: 130 Normal [facility] CT Head or Brain w/o Contras ton 03-14-2024 CT Head or Brain w/o Contrast Exam Date/Time: 03/13/2024 19:18 EDT Reason for Exam: HEAD TRAUMA, MOD-SEVERE;Other (please specify) Report IMPRESSION: NEGATIVE CT SCAN OF THE BRAIN. CLINICAL HISTORY: HEAD TRAUMA, MOD-SEVERE. COMMENT: Unenhanced images were obtained. The ventricles and basal cisterns and cortical sulci appear normal. There is no mass effect nor midline shift. No abnormal attenuation within the brain is noted. There is no evidence of delayed intracranial hemorrhage nor extra-axial hematoma. No mass lesion is evident. No skull fracture is noted. All CT scans at this facility use dose modulation, iterative reconstruction, and/or weight based dosing when appropriate to reduce radiation dose to as low as reasonably achievable. Ordering Provider: Gasper Lang FINAL REPORT Dictated: 03/14/2024 7:56 am Erick Ferrer M.D. Signed (Electronic Signature): 03/14/2024 7:56 am Signed by: Erick Ferrer M.D. Transcribed by: KIRA Technologist: RAVEN [facility] CT Spine Cervical w/o Contra stoолег 03-14-2024 CT Spine Cervical w/o Contrast Exam Date/Time: 03/13/2024 19:18 EDT Reason for Exam: Neck trauma, dangerous injury mechanism;Other (please specify) Report IMPRESSION: NO EVIDENCE OF CERVICAL SPINE FRACTURE. CLINICAL HISTORY: Neck trauma, dangerous injury mechanism. Dizziness, patient fell. COMMENT: Unenhanced images were obtained in a cervical collar. There is minimal cervical kyphosis, suspected positional in the cervical collar, with muscle spasm another possibility. The cervical vertebra are normal in appearance. No interspace narrowing is noted. The cervical vertebral bodies are maintained in height. No fracture nor subluxation is noted. There is no prevertebral retropharyngeal soft tissue swelling. All CT scans at this facility use dose modulation, iterative reconstruction, and/or weight based dosing when appropriate to reduce radiation dose to as low as reasonably achievable. Ordering Provider: Gasper Lang FINAL REPORT Dictated: 03/14/2024 8:01 am Erick Ferrer M.D. Signed (Electronic Signature): 03/14/2024 8:01 am Signed by: Ercik Ferrer M.D. Transcribed by: KIRA Technologist: RAVEN Ed[facility] Discharge Instructionson Discharge Instructions [id number] [facility] ED Clinical Summaryon 2023 ED Clinical Summary (Inserted Image. Vesta ble to display) [place] [address] ED Clinical Summary Person Information [facility]: [facility] Age[facility] 19 [facility] : 2005 Sex: Female Language: [place] PCP: MODESTA ARCHIBALD Marital Status: Single Visit Id: Visit Reason: Trauma - minor; Back pain; Fall; FALL Speciality: Acuity: 3 Enc Type: Emergency Med Service: Emergency Arrival: 03/13/2024 17:33:02 Discharge: 03/13/2024 22:27:55 LOS: 000 04:54 Checkin: 03/13/2024 17:33:02 Checkout: 03/13/2024 22:27:55 Dispo Type: Home (Routine DC) EVENTS: Event Name Event Status Request Date/Time Start Date/Time Complete Date/Time Arrive Complete 03/13/2024 17:33:02 03/13/2024 17:33:02 03/13/2024 17:33:02 Document Home Meds Request 03/13/2024 17:33:02 Triage Complete 03/13/2024 17:33:02 03/13/2024 17:38:34 03/13/2024 17:38:34 Bed Assign Complete 03/13/2024 17:34:12 03/13/2024 17:34:12 03/13/2024 17:34:12 Dr Exam Complete 03/13/2024 17:34:12 03/13/2024 17:35:11 03/13/2024 17:35:11 RN Exam Complete 03/13/2024 17:34:12 03/13/2024 18:53:02 03/13/2024 18:53:02 Registration Complete 03/13/2024 17:35:11 03/13/2024 17:55:24 03/13/2024 17:55:24 Consult Request 03/13/2024 17:37:07 EKG Complete 03/13/2024 17:37:07 03/13/2024 17:49:54 Meds Admin Complete 03/13/2024 17:37:07 03/13/2024 18:44:13 Pending Labs Request 03/13/2024 17:37:07 Lab Request 03/13/2024 17:37:08 Urine Collect Request 03/13/2024 17:37:08 RT Request 03/13/2024 17:37:08 Patient Care Request 03/13/2024 17:37:08 CT Complete 03/13/2024 17:37:08 03/13/2024 17:40:01 03/13/2024 19:18:49 Blood Collect Request 03/13/2024 17:37:08 Dr Exam Complete 03/13/2024 17:38:54 03/13/2024 17:38:54 03/13/2024 17:38:54 Reg Complete Request 03/13/2024 17:55:24 Reg Bed Request Complete 03/13/2024 17:55:24 03/13/2024 17:55:24 03/13/2024 17:55:24 Meds Admin Complete 03/13/2024 18:15:25 03/13/2024 18:44:14 Pending Labs Complete 03/13/2024 18:20:11 03/13/2024 18:20:11 03/13/2024 19:16:21 Lab Complete 03/13/2024 18:20:11 03/13/2024 18:20:11 03/13/2024 19:16:21 Trauma II Request 03/13/2024 18:41:18 Dr Exam Complete 03/13/2024 19:03:47 03/13/2024 19:03:47 03/13/2024 19:03:47 Registration Request 03/13/2024 19:03:47 Meds Admin Complete 03/13/2024 19:05:13 03/13/2024 19:34:19 Meds Admin Complete 03/13/2024 19:50:39 03/13/2024 19:56:06 Meds Admin Request 03/13/2024 20:26:30 X-Ray Complete 03/13/2024 20:27:58 03/13/2024 21:24:39 03/13/2024 21:35:38 Meds Admin Complete 03/13/2024 20:28:16 03/13/2024 20:43:28 Wet Read Request 03/13/2024 21:35:38 Meds Admin Complete 03/13/2024 22:01:20 03/13/2024 22:24:26 Discharge Complete 03/13/2024 22:04:58 03/13/2024 22:27:59 03/13/2024 22:27:59 Transfer Complete 03/13/2024 22:27:59 03/13/2024 22:27:59 03/13/2024 22:27:59 ADDRESS: [facility] [facility] [id number] PHYS DOC NOTES: MEDICAL INFORMATION: Prescriptions Given: New Medications [id number], [address], [place] [id number], [phone] acetaminophen-hydrocodone ([place] 325 mg-5 mg oral tablet) 1 Tablets By Mouth every 6 hours as needed for pain for 3 Days. Refills: 0. methocarbamol (Robaxin 500 mg Tab) 1 Tablets By Mouth 3 times a day for 3 Days. Refills: 0. naproxen (Naprosyn 500 mg Tab) 1 Tablets By Mouth 2 times a day as needed for pain. Refills: 0. promethazine (Phenergan 25 mg Supp) 1 Suppositories By rectum every 6 hours as needed Nausea/Vomiting. Refills: 0. PATIENT EDUCATION INFORMATION: Instructions: Nausea and Vomiting, Adult, Jvuw-yh-Atbr; Muscle Strain, Hzol-zd-Mexn Follow up: With: Address: When: MODESTA ARCHIBALD [address] [place], [place] [id number] PAYMEY (1) In 3 days 03/16/2024 Comments: You can use the medications as prescribed as needed for pain, nausea. Please follow-up with your primary care doctor for further evaluation and management. Please return to the ED if you develop chest pain, difficulty breathing or if any concerning signs or symptoms. DIAGNOSIS: 1:Fall down stairs; Abnormal CT scan, chest; Back strain; N&V (nausea and vomiting) Normal [facility] ED Note-Physicianon 03-14-20 ED Note-Physician Basic Information Time Seen: Gasper Lang PA-C 03/13/2024 17:35 Chief Complaint Pt with hx of POTS got dizzy walking down steps and fell backward down approx. 10 stairs. Pt unsure of LOC or head strike, but c/o mid to lower back pain and head pain. History of Present Illness 39-year-old female comes to the ED for evaluation of injury status post fall. The patient states over the last couple days she has had nausea vomiting and overall poor oral intake. She was walking up the stairs when she became dizzy and lightheaded causing her to fall backwards down the stairs. She did strike her head but she is unsure if there was a loss of consciousness. She does complain of headache as well as diffuse pain across her neck and back. No abdominal pain. No fevers. No chest pain or shortness of breath. Medical history significant for POTS. She denies concern for . Denies urinary complaints. Review of Systems A 10 point review of systems is negative except as noted above. Medical and Surgical History: Reviewed and noted Social history: Lives at home Tobacco: Denies Physical Exam Vitals & Measurements T: 36.8 ?C(Oral) HR: 61(Peripheral) RR: 18 BP: 110/65 SpO2: 95% HT: 160.02 cm WT: 95.5 kg BMI: 37.3 Nurses notes and vital signs reviewed and patient is not hypoxic. General: Awake and alert Skin: Warm, dry, no pallor noted. Head: Atraumatic. No scalp lacerations or hematomas. No cranial instability. Neck: Cervical collar is in place. Trachea midline. Eye: Normal conjunctiva. Pupils equal and reactive. Extraocular motions intact. Ears, Nose, Mouth, and Throat: Moist mucous members. No instability to the facial bones. No dental instability. No epistaxis. Cardiovascular: Strong distal pulses. Chest wall: Nontender. No bony instability. No soft tissue swelling, ecchymosis, erythema. Respiratory: Respirations are nonlabored . Back: Diffuse tense across the back, no focal finding Musculoskeletal: Normal ROM with no gross deformity. Gastrointestinal: Soft and nontender. No distention. No ecchymosis or erythema. Urological: Neurological: Awake and alert. No focal deficits. Follows commands. GCS 15. Psychiatric: Cooperative. Medical Decision Making Patient presents for evaluation of injuries after falling down the stairs secondary to a syncopal event. This was likely secondary to volume depletion in the setting of nausea and vomiting with a history of POTS. Workup ordered and pending, case discussed with the oncoming physician for follow-up disposition. Patient's laboratory evaluations unremarkable exception of potassium of 3.3, with slight leukocytosis of 19.3 however I would believe this likely reactive from the trauma. test is negative, troponins negative. CT imaging shows no acute traumatic injuries however there is nonspecific trace gas along the right major fissure without further evidence for pneumothorax. Discussed findings with trauma surgery Dr. Serrano who reviewed the imaging and recommends a repeat chest x-ray at 930 to assess stability. Patient denies any chest pain, shortness of breath. Is not hypoxic. Discussed this finding with patient she is comfortable with this plan. Repeat chest x-ray is obtained which is reviewed by myself and Dr. Serrano who agree that it does appear stable from the CT reads. Patient continued to remain asymptomatic without shortness of breath or chest pain. She is comfortable with discharge home. Strict return precautions are given. She is discharged home a short course of pain medication, muscle relaxers. She is to return to ED for any new or worsening symptoms. CC time: 35 minutes Due to a high probability of clinically significant, life threatening deterioration, the patient required my highest level of preparedness to intervene emergently and I personally spent this critical care time directly and personally managing the patient. This critical care time included obtaining a history; examining the patient; pulse oximetry; ordering and review of studies; arranging urgent treatment with development of a management plan; evaluation of patient's response to treatment; frequent reassessment; and, discussions with other providers. This critical care time was performed to assess and manage the high probability of imminent, life-threatening deterioration that could result in patient deterioration. It was exclusive of separately billable procedures and treating other patients and teaching time. Assessment/Plan 1. Fall down stairs (W10.8XXA: Fall (on) (from) other stairs and steps, initial encounter) Abnormal CT scan, chest (R93.89: Abnormal findings on diagnostic imaging of other specified body structures) Back strain (S39.012A: Strain of muscle, fascia and tendon of lower back, initial encounter) N&V (nausea and vomiting) (R11.2: Nausea with vomiting, unspecified) Orders: acetaminophen + Generic Diluent 100 mL, 1,000 mg = 100 mL, Soln-IV, IV Piggyback, Once, Stop date 03/13/24 19:05:00 EDT, STA (more content not included)... Normal [facility] Comment on above: Result Comment: Elec tronically Signed By: Gasper Lang PA-C\.br\Date and Time Signed: 03/13/24 18:45 EDT\.br\Electronically Co-Signed By: Isaak Francis DO\.br\Date and Time Co-Signed: 03/13/24 22:19 EDT\.br\Electronically Co-Signed By: Femi Roman DO\.br\Date and Time Co-Signed: 03/16/24 07:37 EDT ED Patient Education Noteon 03-14-2024 ED Patient Education Note Gastroenterology Nausea and Vomiting, Adult Nausea is feeling that you have an upset stomach and that you are about to vomit. Vomiting is when food in your stomach forcefully comes out of your mouth. Vomiting can make you feel weak. If you vomit, or if you are not able to drink enough fluids, you may not have enough water in your body (get dehydrated). If you do not have enough water in your body, you may: ? Feel tired. ? Feel thirsty. ? Have a dry mouth. ? Have cracked lips. ? Pee (urinate) less often. Older adults and people with other diseases or a weak body defense system (immune system) are at higher risk for not having enough water in the body. If you feel like you may vomit or you vomit, it is important to follow instructions from your doctor about how to take care of yourself. Follow these instructions at home: Watch your symptoms for any changes. Tell your doctor about them. Eating and drinking ? Take an ORS (oral rehydration solution). This is a drink that is sold at pharmacies and stores. ? Drink clear fluids in small amounts as you are able, such as: ? Water. ? Ice chips. ? Fruit juice that has water added (diluted fruit juice). ? Low-calorie sports drinks. ? Eat bland, zfre-ax-svfbbc foods in small amounts as you are able, such as: ? Bananas. ? Applesauce. ? Rice. ? Low-fat (lean) meats. ? [place]. ? Crackers. ? Avoid drinking fluids that have a lot of sugar or caffeine in them. This includes energy drinks, sports drinks, and soda. ? Avoid alcohol. ? Avoid spicy or fatty foods. General instructions ? Take wklu-gpb-lpomtkv and prescription medicines only as told by your doctor. ? Drink enough fluid to keep your pee (urine) pale yellow. ? Wash your hands often with soap and water for at least 20 seconds. If you cannot use soap and water, use hand bulb farmworker. ? Make sure that everyone in your home washes their hands well and often. ? Rest at home until you feel better. ? Watch your condition for any changes. ? Take slow and deep breaths when you feel like you may vomit. ? Keep all follow-up visits. Contact a doctor if: ? Your symptoms get worse. ? You have new symptoms. ? You have a fever. ? You cannot drink fluids without vomiting. ? You feel like you may vomit for more than 2 days. ? You feel light-headed or dizzy. ? You have a headache. ? You have muscle cramps. ? You have a rash. ? You have pain while peeing. Get help right away if: ? You have pain in your chest, neck, arm, or jaw. ? You feel very weak or you faint. ? You vomit again and again. ? You have vomit that is bright red or looks like black coffee grounds. ? You have bloody or black poop (stools) or poop that looks like tar. ? You have a very bad headache, a stiff neck, or both. ? You have very bad pain, cramping, or bloating in your belly (abdomen). ? You have trouble breathing. ? You are breathing very quickly. ? Your heart is beating very quickly. ? Your skin feels cold and clammy. ? You feel confused. ? You have signs of losing too much water in your body, such as: ? Dark pee, very little pee, or no pee. ? Cracked lips. ? Dry mouth. ? Sunken eyes. ? Sleepiness. ? Weakness. These symptoms may be an emergency. Get help right away. Call 911. ? Do not wait to see if the symptoms will go away. ? Do not drive yourself to the hospital. Summary ? Nausea is feeling that you have an upset stomach and that you are about to vomit. Vomiting is when food in your stomach comes out of your mouth. ? Follow instructions from your doctor about eating and drinking. ? Take vlas-dfh-zwsxuwz and prescription medicines only as told by your doctor. ? Contact your doctor if your symptoms get worse or you have new symptoms. ? Keep all follow-up visits. This information is not intended to replace advice given to you by your health care provider. Make sure you discuss any questions you have with your health care provider. Document Revised: 05/21/2022 Document Reviewed: 05/21/2022 [employer] Patient Education ? 2022 [employer] Orthopedics Muscle Strain A muscle strain, or pulled muscle, happens when a muscle is stretched beyond its normal length. This can tear some muscle fibers and cause pain. Usually, it takes 1?2 weeks to heal from a muscle strain. Full healing normally takes 5?6 weeks. What are the causes? This condition is caused when a sudden force is placed on a muscle and stretches it too far. This can happen with a fall, while lifting, or during sports. What increases the risk? You are more likely to develop a muscle strain if you are an athlete or you do a lot of physical activity. What are the signs or symptoms? ? Pain. ? Tenderness. ? Bruising. ? Swelling. ? Trouble using the muscle. How is this treated? This condition is first treated with ELAINE therapy. This involves: ? Protecting your m (more content not included)... Normal [facility] ED Patient Summaryon ED Patient Summary (Inserted Image. Vesta ble to display) [place] [address] Patient Discharge Instructions Person Information Name: PILI PARIKH Age: 19 Years Arrival Date: 03/13/2024 17:33:02 Discharge Diagnosis: 1:Fall down stairs; Abnormal CT scan, chest; Back strain; N&V (nausea and vomiting) Primary Care Physician: MODESAT ARCHIBALD Provider Information Primary Provider: Femi Roman DO Advanced Odd Job Laborer:Gasper Lang PA-C The exam and treatment you received in the Emergency Department were for an urgent problem and are not intended as complete care. It is important that you follow up with a doctor, nurse practitioner, or physician?s culture media laboratory assistant for ongoing care. If your symptoms become worse or you do not improve as expected and you are unable to reach your usual health care provider, you should return to the Emergency Department. We are available 24 hours a day. PILI PARIKH has been given the following list of patient education materials, prescriptions and follow-up instructions: Follow-up Instructions: With: Address: When: MODESTA ARCHIBALD [address], [place] [id number] [phone] Business (1) In 3 days 03/16/2024 Comments: You can use the medications as prescribed as needed for pain, nausea. Please follow-up with your primary care doctor for further evaluation and management. Please return to the ED if you develop chest pain, difficulty breathing or if any concerning signs or symptoms. In the event that this physician does not participate in your insurance network, please consult with your insurance company to find a nearby participating provider. Patient Education Materials: Nausea and Vomiting, Adult, Vzvi-py-Ubmn; Muscle Strain, Rkkq-em-Zfnl A MESSAGE TO ALL PATIENTS REGARDING OPIOIDS PRESCRIPTION OPIOIDS: WHAT YOU NEED TO KNOW Prescription opioids can be used to help relieve vytghrlv-fd-fcfkfo pain and are often prescribed following a surgery or injury, or for certain health conditions. These medications can be an important part of the treatment but also come with serious risks. It is important to work with your healthcare provider to make sure you are getting the safest, most effective care. WHAT ARE THE RISKS AND SIDE EFFECTS OF OPIOID USE? Prescription opioids carry serious risks of addiction and overdose, especially with prolonged use. An opioid overdose, often marked by slowed breathing, can cause sudden . The use of prescription opioids can have a number of side effects as well, even when taken as directed: ? Tolerance?meaning you might need to take more of the medication for the same pain relief ? Physical dependence?meaning you have symptoms of withdrawal when a medication is stopped ? Increased sensitivity to pain ? Constipation ? Nausea, vomiting, and dry mouth ? Sleepiness and dizziness ? Confusion ? Depression ? Low levels of testosterone that can result in lower sex drive, energy, and strength ? Itching and sweating RISKS ARE GREATER WITH: ? History of drug misuse, substance use disorder, or overdose ? Mental health conditions (such as depression or anxiety) ? Sleep apnea ? Older age (65 years and older) ? Avoid alcohol while taking prescription opioids. Also, unless specifically advised by your health care provider, medications to avoid include: ? Benzodiazepines (such as Xanax or Valium) ? Muscle relaxants (such as Soma or Flexeril) ? Hypnotics (such as Ambien or Lunesta) ? Other prescription opioids KNOW YOUR OPTIONS Talk to your health care provider about ways to manage your pain that don?t involve prescription opioids. Some of these options may actually work better and have fewer risks and side effects. Options may include: ? Pain relievers such as acetaminophen, ibuprofen, and naproxen ? Some medication that are also used for depression or seizures ? Physical therapy and exercise ? Cognitive behavioral therapy, a psychological, goal-directed approach, in which patients learn how to modify physical, behavioral, and emotional triggers of pain and stress. IF YOU ARE PRESCRIBED OPIOIDS FOR PAIN: ? Never take opioids in greater amounts or more often than prescribed. ? Follow up with your primary health care provider. o Work together to create a plan on how to manage your pain. o Talk about ways to help manage your pain that don?t involve prescription opioids. o Talk about any and all concerns and side effects. ? Help prevent misuse and abuse o Never sell or share prescription opioids. o Never use another person?s prescription opioids. ? Store prescription opioids in a secure place and out of reach of others (this may include visitors, children, friends, and family). ? Safely dispose of unused prescription opioids: Find your community drug take-back program or your pharmacy mail-back program, or flush them juan (more content not included)... Normal [facility] ED Traumaon 03-14-2024 ED Trauma [id number]#[id number] [facility] EMS Documentationon 03-14-20 24 EMS Documentation Please click on link to see report [facility] Comment on above: Result Comment: Miss ing Attachment - total size limit for all attachments exceeded [email or web address] Can be viewed in source system Monitor Recordon 03-14-2024 Monitor Record [id number]#1.00TIFF [facility] Prescriptions/Work Noteson 0 03-14-2024 Prescriptions/Work Notes [id number]#1.00TIFF [facility] XR Chest 2 Viewson XR Chest 2 Views Exam Date/Time: 03/13/2024 21:35 EDT Reason for Exam: pntx;Other (please specify) Report IMPRESSION: MINIMAL PNEUMOMEDIASTINUM AND MINIMAL RIGHT PNEUMOTHORAX ARE MUCH BETTER APPRECIATED ON THE CT SCAN. CLINICAL HISTORY: Pneumothorax. Patient fell. COMPARISON: CT scan of 03/13/2024. COMMENT: Minimal pneumomediastinum and minimal right pneumothorax are visualized on the earlier CT scan. On this radiographic exam, there is minimal hyperlucency along the right heart border suspected to correspond to the minimal pneumomediastinum. The heart is normal in size. No mediastinal widening is noted. The lungs are aerated and appear unremarkable. No pneumothorax is evident on this exam, but CT scan is much more sensitive means to assess for this. No airspace opacification nor pleural effusion is evident. Ordering Provider: Isaak Francis FINAL REPORT Dictated: 03/14/2024 3:22 pm Erick Ferrer M.D. Signed (Electronic Signature): 03/14/2024 3:22 pm Signed by: Erick Ferrer M.D. Transcribed by: KIRA Technologist: RAVEN Technical Comments Radiation Dose: Ka,r in mGy = na DAP = na Normal [facility] ABO/Rhon 03-13-2024 ABO/Rh Positive Invalid Interpretation Code [facility] Comment on above: Performed By: #### 2 [id number], [id number], 32470253, [id number] ####[facility] [address] [place] [address] ABSCon 03-13-2024 ABSC Gel Interp Negative Normal [facility] Comment on above: Performed By: #### 2 447684, 50185771, 52469663, [id number] ####[place] [address] [place] [address] B hCG Qualon 03-13-2024 Beta HCG ( test) Ql Negative Normal [facility] Comment on above: Performed By: #### 2 4476817, 7592373, 1057944, 9595386, 2218748, 75661130, 27197887, 2855954, 6483401 ####[place] [address] [place] [address] BLOOD BANKOrdered By: Scarlet Lindquist on 03-13-2024 ABO/Rh Interp Positive Invalid Interpretation Code [facility] BB Subsection ABSC Gel Interp Negative (03/13/24 6:53 PM) Normal [facility] BB Subsection BMPon 03-13-2024 Anion gap [Moles/Vol] 16 mmol/L Normal -16 [facility] Comment on above: Performed By: #### 2 8432221, 0966968, 7142937, 4759378, 7029120, 26800230, 04539460, 2400623, 3198874 ####[facility] [address] [place] [address] Calcium [Mass/Vol] 10.8 mg/dL Normal 8.9-11.1 [facility] Comment on above: Performed By: #### 2 6121771, 5741330, 9704813, 4201411, 8473643, 62524118, 09449117, 0300555, 9259269 ####[facility] [address] [place] [address] Chloride [Moles/Vol] 105 mmol/L Normal 101-111 [facility] Comment on above: Performed By: #### 2 6212519, 4145187, 3951284, 8640687, 0545975, 02220040, 58464870, 1379413, 9729967 ####[facility] [address] [place] [address] CO2 [Moles/Vol] 25 mmol/L Normal 21-31 [facility] Comment on above: Performed By: #### 2 4568698, 6500998, 7677038, 9364797, 7931456, 15296558, 26292848, 2706855, 1054042 ####[facility] [address] [place] [address] Creatinine [Mass/Vol] 0.9 mg/dL Normal 0.5-1.3 [facility] Comment on above: Performed By: #### 2 7194580, 4076589, 8311641, 0285675, 6109562, 39859981, 81125907, 5747502, 2441171 ####[facility] [address] [place] [address] Glucose [Mass/Vol] 100 mg/dL Normal 55-199 [facility] Comment on above: Performed By: #### 2 7475675, 7076000, 1327679, 4570805, 8380423, 25097375, 80537279, 3131397, 8585857 ####[facility] [address] [place] [address] Potassium [Moles/Vol] 3.3 mmol/L Low 3.5-5.3 [facility] Comment on above: Performed By: #### 2 1240850, 7478185, 1055715, 7813501, 1619442, 68537121, 45270190, 9566241, 6903763 ####[facility] [address] [place] [address] Sodium [Moles/Vol] 143 mmol/L Normal 135-145 [facility] Comment on above: Performed By: #### 2 9057813, 1797954, 6796491, 5633108, 1169300, 05593818, 90291958, 1885076, 4274920 ####[facility] [address] [place] [address] Urea nitrogen [Mass/Vol] 24 mg/dL High 5-21 [facility] Comment on above: Performed By: #### 2 4020992, 3472257, 2527609, 4070904, 4003589, 78337313, 47912963, 0759436, 8434600 ####[facility] [address] [place] [address] Urea nitrogen/Creatinine [Mass ratio] 27 No Units High 10-20 [facility] Comment on above: Performed By: #### 2 0069842, 6004895, 8438485, 2000053, 5174111, 15050499, 60514140, 4621840, 8976221 ####[facility] [address] [place] [address] Blood Bank ID#on 03-13-2024 BBID# [id number] Invalid Interpretation Code [facility] Comment on above: Performed By: #### 2 776507, 43572815, 44058002, 00267032 ####[facility] [address] [place] [address] CBC w/ Auto Diffon 4 Basophils/100 WBC (Bld) 0.4 % Normal 0.0-2.0 [facility] Comment on above: Performed By: #### 2 5355720, 5016185, 8765488, 7747375, 8942397, 60841255, 14050087, 4981190, 9712347 ####[place] [address] [place] [address] Basophils/Leukocytes Auto (Bld) [Pure # fraction] 0.1 E9/L Normal 0.0-0.2 [facility] Comment on above: Performed By: #### 2 6149883, 5121074, 7120751, 4609139, 3270345, 37782146, 67604016, 3647495, 2342804 ####[address] [address] Eosinophils (Bld) [#/Vol] 0.0 E9/L Normal 0.0-0.5 [facility] Comment on above: Performed By: #### 2 4470456, 4130203, 7820525, 5778381, 0974846, 35970165, 35106696, 8935915, 6688725 ####[address] [address] Eosinophils/100 WBC (Bld) 0.1 % Normal 0.0-8.0 [facility] Comment on above: Performed By: #### 2 4350132, 1326908, 3826965, 0011001, 7429123, 72375174, 36981730, 5900444, 0181815 ####[address] [address] Erythrocyte distribution width (RBC) [Ratio] 14.4 % High 10.9-14.2 [facility] Comment on above: Performed By: #### 2 9941188, 1888326, 1307420, 5095134, 0891466, 78213634, 75801307, 7527109, 6752309 ####[address] [address] Hematocrit (Bld) [Volume fraction] 42.5 % Normal 34.0-46.0 [facility] Comment on above: Performed By: #### 2 5293994, 0375976, 7017635, 8691265, 9102223, 72735575, 13328073, 9401536, 8207921 ####[facility] [address] [place] [address] Hemoglobin (Bld) [Mass/Vol] 14.0 g/dL Normal 12.0-16.0 [facility] Comment on above: Performed By: #### 2 3845611, 3524114, 1946485, 4863634, 9757917, 48545211, 27885540, 5751058, 1274247 ####[facility] [address] [place], [place] [address] Lymphocytes (Bld) [#/Vol] 2.3 E9/L Normal 1.0-4.0 [facility] Comment on above: Performed By: #### 2 1441175, 0127399, 6307959, 7459574, 8389329, 44194487, 69330324, 0193612, 4532352 ####[place] [address] Lymphocytes/100 WBC (Bld) 11.8 % Low 14.0-50.0 [facility] Comment on above: Performed By: #### 2 9909681, 4000039, 9625740, 8514734, 4076692, 36004473, 61928835, 9817094, 4053063 ####[facility] [address] [place] [address] MCH (RBC) [Entitic mass] 27.6 pg Normal 27.0-34.0 [facility] Comment on above: Performed By: #### 2 4874570, 7016750, 0831358, 9411127, 7233886, 78140213, 86265826, 0969954, 1060016 ####[facility] [address] [place], [place] [address] MCHC (RBC) [Mass/Vol] 32.9 g/dL Normal 31.4-36.0 [facility] Comment on above: Performed By: #### 2 4605969, 2109774, 6354197, 2444178, 0052487, 88089190, 96145704, 2923206, 5759241 ####[facility] [address] [place] [address] MCV (RBC) [Entitic vol] 83.8 fL Normal 80.0-100.0 [facility] Comment on above: Performed By: #### 2 6043214, 4996258, 8029612, 5431831, 9166615, 47424564, 87091453, 5342131, 1665161 ####[place] [address] [place] [address] Monocytes (Bld) [#/Vol] 1.4 E9/L High 0.2-1.0 [facility] Comment on above: Performed By: #### 2 7719912, 8746662, 5331336, 1164125, 3003303, 49218449, 53327685, 2733379, 8954635 ####[facility] [address] [place], [place] [address] Neutrophils (Bld) [#/Vol] 15.5 E9/L High 2.0-7.5 [facility] Comment on above: Performed By: #### 2 9856197, 8433958, 8615032, 7017718, 1228747, 92114637, 44057977, 3279494, 4494793 ####[facility] [address] [place] [address] Neutrophils/100 WBC (Bld) 80.6 % High 36.0-75.0 [facility] Comment on above: Performed By: #### 2 2906565, 3255723, 5700401, 5207370, 4019664, 18225741, 06283153, 1156227, 7288604 ####[facility] [address] [place] [address] Platelet mean volume (Bld) [Entitic vol] 8.4 fL Normal 6.4-10.8 [facility] Comment on above: Performed By: #### 2 3618713, 5864873, 9288980, 3684151, 2176538, 77178094, 72014647, 1532019, 7982853 ####[facility] [address] [place] [address] Platelets (Bld) [#/Vol] 356.0 E9/L Normal 150.0-500. 0 [facility] Comment on above: Performed By: #### 2 4658997, 1708519, 2748964, 2939713, 0191863, 28149347, 19432829, 2980800, 1973102 ####[facility] [address] [place] [address] RBC (Bld) [#/Vol] 5.1 E12/L Normal 4.3-5.9 [facility] Comment on above: Performed By: #### 2 8705426, 2942388, 6898319, 8795569, 8028962, 83342945, 72115856, 9667275, 2609878 ####[facility] [address] [place] [address] WBC corrected for nucl RBC Auto (Bld) [#/Vol] 19.3 E9/L High 4.0-11.0 [facility] Comment on above: Result Comment: Slid e review performed Performed By: #### 2 8697734, 0840239, 5962775, 7085190, 2161051, 91742567, 74175644, 3908828, 2355120 ####[facility] [address] [place] [address] CHEMISTRYOrdered By: SYSTEM SYSTEM on 03-13-2024 Albumin [Mass/Vol] 5.4 g/dL High 3.3 - 5.0 gm/dL Rem[facility] Chem Albumin/Globulin [Mass ratio] 1.8 {ratio} Normal 1.1 - 2.2 [facility] ALP [Catalytic activity/Vol] 82 [iU]/d Normal 21 - 98 Int._Unit/ L [facility] ALT No additional P-5'-P [Catalytic activity/Vol] 44 [iU]/d Normal 6 - 46 Int._Unit/ L [facility] Anion gap [Moles/Vol] 16 mmol/L Normal 6 - 16 mEq/L [facility] AST [Catalytic activity/Vol] 23 [iU]/d Normal 5 - 43 Int._Unit/ L [facility] Bilirubin [Mass/Vol] 0.8 mg/dL Normal 0.0 - 1 .1 mg/dL [facility] Bilirubin.direct [Mass/Vol] 0.2 mg/dL Normal 0.0 - 0.4 mg/dL [facility] Bilirubin.indirect [Mass or moles/Vol] 0.6 mg/dL Normal 0.1 - 0.9 mg/dL [facility] Calcium [Mass/Vol] 10.8 mg/dL Normal 8.9 - 11. 1 mg/dL [facility] Chloride [Moles/Vol] 105 mmol/L Normal 101 - 1 11 mmol/L [facility] CO2 [Moles/Vol] 25 mmol/L Normal 21 - 31 mmol/L [facility] Creatinine [Mass/Vol] 0.9 mg/dL Normal 0.5 - 1.3 mg/dL [facility] eGFR 94 mL/min/1.73 m2 Normal >=59mL/min /1.73 m2 [facility] Ethanol Lvl mg/dL Normal <=11mg/dL [facility] Globulin (S) [Mass/Vol] 3.0 g/dL Normal 1.4 - 4.0 gm/dL [facility] Glucose [Mass/Vol] 100 mg/dL Normal 55 - 199 mg/dL [facility] Lactic Acid Lvl 1.7 mmol/L Normal 0.5 - 2.2 mmol/L [facility] Lipase [Catalytic activity/Vol] 14 U/L Normal 13 - 58 unit/L [facility] Potassium [Moles/Vol] 3.3 mmol/L Low 3.5 - 5.3 mmol/L [facility] Protein [Mass/Vol] 8.4 g/dL High 6.0 - 7.8 gm/dL [facility] Sodium [Moles/Vol] 143 mmol/L Normal 135 - 145 mmol/L [facility] Troponin 6.10 pg/mL Low 10.10 - 27.10 pg/mL [facility] Comment on above: Interpretive Data: T he 95% CI (Confidence Interval) PPV (Positive Predictive Value) for myocardial infarction in females is 38 pg/mL, in males 51 pg/mL. The results should be used in conjunction with clinical conditions of myocardial infarction. (Access High Sensitivity Troponin I Instructions For Use, Sugar Bartlett, June 2018) Urea nitrogen [Mass/Vol] 24 mg/dL High 5 - 21 mg/dL [facility] Urea nitrogen/Creatinine [Mass ratio] 27 mg/mg High 10 - 20 [facility] COAGULATIONOrdered By: Jefe Mccain on 03-13-2024 aPTT Coag (PPP) [Time] 32.8 s Normal 25.1 - 36.5 second(s) [facility] Comment on above: Interpretive Data: P arameter 15 days - 4 weeks 1 - 5 months 6 - 11 months 1 - 5 years 6 - 10 years 11 - 17 years PTT Mean: 35.4 (27.6-45.6) Mean: 33.5 (24.8-40.7) Mean: 32.4 (25.1-40.7) Mean: 31.6 (24.0-39.2) Mean: 31.6 (26.9-38.7) Mean: 31.0 (24.6-38.4) Pediatric Reference ranges were obtained from a study by Az Mary et al. prepared from 1437 samples obtained at 7 different centers using the same coagulation reagent and instrumentation as [facility]. Currently there are no coagulation studies available worldwide for children to 14 days, and no normal ranges. Heparin therapeutic range (represented by Anti-Factor Xa activity of 0.2 - 0.4 U/mL) corresponds to PTT of 56.6 - 109.0 sec. INR Coag (PPP) [Relative time] 1.11 {INR} Invalid Interpretation Code [facility] Comment on above: Interpretive Data: I NR results are specifically intended to assess patients stabilized on long-term Anticoagulation therapy suggested INR s Less Intensive Anticoagulation 2.0 3.0 Conventional Range 3.0 4.5 PT Coag (PPP) [Time] 12.4 s Normal 9.4 - 1 2.5 second(s) [facility] Comment on above: Interpretive Data: 1 5 days - 4 weeks 1 - 5 months 6 -11 months 1-5 years 6-10 years 11 -17 years Mean: 11.2 (9.5-12.6) Mean: 11.0 (9.7-12.8) Mean: 11.0 (9.8-13.0) Mean: 11.3 (9.9-13.4) Mean: 11.7 (10.0-14.6) Mean: 11.8 (10.0 - 14.1) Pediatric Reference ranges were obtained from a study by Az Mary et al. prepared from 1437 samples obtained at 7 different centers using the same coagulation reagent and instrumentation as [facility]. Currently there are no coagulation studies available worldwide for children to 14 days, and no normal ranges. Consent for Treatmenton 02-26 Consent for Treatment [id number] Normal [facility] Ethanolon 03-13-2024 Ethanol Lvl <10 Normal <=11 [facility] Comment on above: Performed By: #### 2 [id number] ####[facility] [address] [place] [address] HEMATOLOGYOrdered By: SYSTEM SYSTEM on 03-13-2024 Basophils/100 WBC (Bld) 0.4 % Normal 0.0 - 2.0 % [facility] Basophils/Leukocytes Auto (Bld) [Pure # fraction] 0.1 E9/L Normal 0.0 - 0.2 E9/L [facility] Eosinophils (Bld) [#/Vol] 0.0 E9/L Normal 0.0 - 0.5 E9/L [facility] Eosinophils/100 WBC (Bld) 0.1 % Normal 0.0 - 8.0 % [facility] Erythrocyte distribution width (RBC) [Ratio] 14.4 % High 10.9 - 14.2 % [facility] Hematocrit (Bld) [Volume fraction] 42.5 % Normal 34.0 - 46.0 % [facility] Hemoglobin (Bld) [Mass/Vol] 14.0 g/dL Normal 12.0 - 16.0 gm/dL [facility] Lymphocytes (Bld) [#/Vol] 2.3 E9/L Normal 1.0 - 4.0 E9/L [facility] Lymphocytes/100 WBC (Bld) 11.8 % Low 14.0 - 50.0 % [facility] MCH (RBC) [Entitic mass] 27.6 pg Normal 27.0 - 34.0 pg [facility] MCHC (RBC) [Mass/Vol] 32.9 g/dL Normal 31.4 - 36.0 gm/dL [facility] MCV (RBC) [Entitic vol] 83.8 fL Normal 80.0 - 100.0 fL [facility] Monocytes (Bld) [#/Vol] 1.4 E9/L High 0.2 - 1.0 E9/L [facility] Monocytes/100 WBC (Bld) 7.1 % Normal 4.0 - 14.0 % [facility] Neutrophils (Bld) [#/Vol] 15.5 E9/L High 2.0 - 7.5 E9/L [facility] Neutrophils/100 WBC (Bld) 80.6 % High 36.0 - 75.0 % [facility] Platelet mean volume (Bld) [Entitic vol] 8.4 fL Normal 6.4 - 10.8 fL [facility] Platelets (Bld) [#/Vol] 356.0 E9/L Normal 150.0 - 500.0 E9/L [facility] RBC (Bld) [#/Vol] 5.1 E12/L Normal 4.3 - 5.9 E12/L [facility] WBC corrected for nucl RBC Auto (Bld) [#/Vol] 19.3 E9/L High 4.0 - 11.0 E9/L [facility] Comment on above: Result Comment: Slid e review performed Hep Fun Panelon 03-13-2024 Albumin [Mass/Vol] 5.4 g/dL High 3.3-5.0 [facility] Comment on above: Performed By: #### 2 [id number], 0228838, 5450856, 5095009, 5919148, 74051178, 40247997, 1987012, 8853105 ####[facility] [address] [place] [address] Albumin/Globulin (S) [Mass conc ratio] 1.8 Normal 1.1-2.2 [facility] Comment on above: Performed By: #### 2 2881714, 7193435, 2527671, 3675905, 1634267, 06713674, 51805291, 3599808, 3235446 ####[facility] [address] [place] [address] ALP [Catalytic activity/Vol] 82 Int._Unit/L Normal 21-98 [facility] Comment on above: Performed By: #### 2 9167462, 4685578, 9386049, 3348421, 7984286, 13648645, 53707633, 2425505, 8120124 ####[address] [place] [address] ALT No additional P-5'-P [Catalytic activity/Vol] 44 Int._Unit/L Normal 6-46 [facility] Comment on above: Performed By: #### 2 1255031, 6111859, 8260919, 8447702, 0473967, 11142899, 22409876, 1576374, 1172464 ####[facility] [address] [place] [address] AST [Catalytic activity/Vol] 23 Int._Unit/L Normal 5-43 [facility] Comment on above: Performed By: #### 2 5621194, 3831101, 6423522, 1041996, 4212128, 19248723, 52639757, 7704959, 7421921 ####[facility] [address] [place] [address] Bilirubin [Mass/Vol] 0.8 mg/dL Normal 0.0-1.1 [facility] Comment on above: Performed By: #### 2 2407783, 9956391, 7780099, 4944061, 1363439, 73230447, 00476151, 2828160, 2443893 ####[facility] [address] [place] [address] Bilirubin.direct [Mass/Vol] 0.2 mg/dL Normal 0.0-0.4 [facility] Comment on above: Performed By: #### 2 0044323, 5653753, 3719598, 9297606, 2868312, 28931436, 74920181, 2715886, 0397648 ####[facility] [address] [place] [address] Bilirubin.indirect [Mass or moles/Vol] 0.6 mg/dL Normal 0.1-0.9 [facility] Comment on above: Performed By: #### 2 9111306, 3482779, 6620863, 6453749, 6451179, 60248045, 41167688, 5767348, 4316533 ####[address] [place] [address] Globulin (S) [Mass/Vol] 3.0 g/dL Normal 1.4-4.0 [facility] Comment on above: Performed By: #### 2 5491409, 6020641, 9285874, 9896061, 8820426, 80725784, 89610206, 3020293, 7413117 ####[facility] [address] [place] [address] Protein [Mass/Vol] 8.4 g/dL High 6.0-7.8 [facility] Comment on above: Performed By: #### 2 1720080, 2863770, 5397589, 9937128, 3373828, 28214413, 67561845, 9282747, 8605791 ####[facility] [address] [place] [address] Lactic Acidon 03-13-2024 Lactic Acid Lvl 1.7 mmol/L Normal 0.5-2.2 [facility] Comment on above: Performed By: #### 2 6403591, 7757285, 1835726, 1636494, 4258768, 24635728, 38234015, 9791328, 9051993 ####[facility] [address] [place] [address] Lipase Levelon 03-13-2024 Lipase [Catalytic activity/Vol] 14 U/L Normal 13-58 [facility] Comment on above: Performed By: #### 2 9039259, 7628754, 1094011, 5311064, 4872305, 45597602, 07548945, 9307783, 8760029 ####[facility] [address] [place] [address] Monitor Recordon 03-13-2024 Monitor Record [id number]#[id number] Normal [facility] PT & PTTon 03-13-2024 aPTT Coag (PPP) [Time] 32.8 second(s) Normal 25.1-36.5 [facility] Comment on above: Result Comment: Para meter 15 days - 4 weeks 1 - 5 months 6 - 11 months 1 - 5 years 6 - 10 years 11 - 17 years PTT Mean: 35.4 (27.6-45.6) Mean: 33.5 (24.8-40.7) Mean: 32.4 (25.1-40.7) Mean: 31.6 (24.0-39.2) Mean: 31.6 (26.9-38.7) Mean: 31.0 (24.6-38.4) Pediatric Reference ranges were obtained from a study by Az Mary et al. prepared from 1437 samples obtained at 7 different centers using the same coagulation reagent and instrumentation as [facility]. Currently there are no coagulation studies available worldwide for children to 14 days, and no normal ranges. Heparin therapeutic range (represented by Anti-Factor Xa activity of 0.2 - 0.4 U/mL) corresponds to PTT of 56.6 - 109.0 sec. Performed By: #### 2 5072872, 5186634, 1168373, 2129581, 4317510, 03717892, 40354378, 8743585, 3798895 ####[facility] [address] [place] [address] INR Coag (PPP) [Relative time] 1.11 {INR} Invalid Interpretation Code [facility] Comment on above: Result Comment: INR results are specifically intended to assess patients stabilized on long-term Anticoagulation therapy suggested INR?s ?Less Intensive Anticoagulation? 2.0 ? 3.0 Conventional Range 3.0 ? 4.5 Performed By: #### 2 6743647, 6339168, 1347250, 9504540, 9210504, 51932357, 49287695, 5989290, 4896881 ####[facility] [address] [place] [address] PT Coag (PPP) [Time] 12.4 second(s) Normal 9.4-12.5 [facility] Comment on above: Result Comment: 15 d ays - 4 weeks 1 - 5 months 6 -11 months 1- 5 years 6-10 years 11 -17 years Mean: 11.2 (9.5-12.6) Mean: 11.0 (9.7-12.8) Mean: 11.0 (9.8-13.0) Mean: 11.3 (9.9-13.4) Mean: 11.7 (10.0-14.6) Mean: 11.8 (10.0 - 14.1) Pediatric Reference ranges were obtained from a study by Az Mary et al. prepared from 1437 samples obtained at 7 different centers using the same coagulation reagent and instrumentation as [facility]. Currently there are no coagulation studies available worldwide for children to 14 days, and no normal ranges. Performed By: #### 2 6707539, 2074136, 4681335, 4710995, 6462833, 15922871, 46586591, 2003499, 9725397 ####[facility] [address] [place] [address] Pre-Arrival Noteon Pre-Arrival Note [facility] Current Date: 03/13/2024 17:34:24 EDT Gender: Female Date of : Age: 19 Pre-Arrival Type: EMS ETA: 03/13/2024 17:59:00 EDT Primary Care Physician: Presenting Problem: fall down 10 stairs Pre-Arrival User: Payal Robison RN Referring Source: Location: Completion Date/Time: 03/13/2024 17:29:00 [facility] Emergency Department Pre-Hospital Report Form Vital Signs: 127/83; 66; 17; 96%; GCS 15 Pre-Hospital Report: Treatment in Route: C-COLLAR Response to Treatment: Misc. Issues: Normal [facility] RAD - Preliminary Cat Scan R eporton 03-13-2024 RAD - Preliminary Cat Scan Report [id number]#[id number] Normal [facility] SEROLOGYOrdered By: Virginia Mccain on 03-13-2024 Beta HCG ( test) Ql Negative (03/13/24 6:53 PM) Normal [facility] Sero Troponinon 03-13-2024 Troponin 6.10 pg/mL Low 10.10-27.1 0 [facility] Comment on above: Result Comment: The 95% CI (Confidence Interval) PPV (Positive Predictive Value) for myocardial infarction in females is 38 pg/mL, in males 51 pg/mL. The results should be used in conjunction with clinical conditions of myocardial infarction. (Access High Sensitivity Troponin I Instructions For Use, Sugar Bartlett, June 2018) Performed By: #### 2 4370576, 8282124, 0440378, 5494644, 0411466, 06661447, 32357491, 3850913, 7561564 ####[facility] [address] [place] [address] eGFRon 03-13-2024 eGFR 94 mL/min/1.73 m2 Normal >=59 [facility] Comment on above: Order Comment: rosemary frost. phlebotomists notified of recollect by message. [id number] 03/13/2024 18:28:21 EDTOrder added by Discern Expert. Performed By: #### 2 0350372, 8293790, 2203132, 4254255, 5504945, 88015382, 33710854, 8295135, 8523966 ####[facility] [address] [place] [address] ECG 12 lead ECGon 07-31-2023 ECG 12 lead ECG Normal [facility] XR knee RT 2Von 07-14-2023 XR knee RT 2V Normal [facility] XR knee RT 2Von 06-16-2023 XR knee RT 2V Normal [facility] XR knee RT 2Von 06-02-2023 XR knee RT 2V Normal [facility] Amphetamine Screen Ql (U)Ord ered By: Axel Christian on 05-25-2023 Amphetamines Ql (U) Negative Negative [facility] Barbiturates [Presence] in U rine by Screen methodOrdered By: Axel Christian on 05-25-2023 Barbiturates Screen Ql (U) Negative Negative [facility] Benzodiazepines Screen Ql (U )Ordered By: Axel Christian on 05-25-2023 Benzodiazepines Ql (U) Negative Negative [facility] Benzoylecgonine [Presence] i n Urine by Screen methodOrdered By: Axel Christian on 05-25-2023 Benzoylecgonine Screen Ql (U) Negative Negative [facility] Cannabinoids [Presence] in U rine by Screen methodOrdered By: Axel Christian on 05-25-2023 Cannabinoids Screen Ql (U) Positive Negative [facility] Comment on above: These are unconfirme d results and should not be used for legal purposes. Drug Cut-Off Concentration: AMPH 1000 ng/mL NIKOLAS 200 ng/mL SHRAVAN 200 ng/mL COCM 300 ng/mL OP 300 ng/mL PCP 25 ng/mL THC 20 ng/mL Drug Screen,Urineon 05-25-20 Amphetamine Screen,Urine Negative Normal Negative [facility] Comment on above: Performed By: #### U TER[facility], [facility] ####[facility] [address] Barbiturate Screen,Urine Negative Normal Negative [facility] Comment on above: Performed By: #### U TERESA [facility] ####[id number] [facility] Benzodiazepines Screen,Urine Negative Normal Negative [facility] Comment on above: Performed By: #### U TERESA, [facility] ####[id number] [facility] Cannabinoid Screen,Urine Positive High Negative [facility] Comment on above: Result Comment: Thes e are unconfirmed results and should not be used for legal purposes. Drug Cut-Off Concentration: AMPH 1000 ng/mL NIKOLAS 200 ng/mL SHRAVAN 200 ng/mL COCM 300 ng/mL OP 300 ng/mL PCP 25 ng/mL THC 20 ng/mLPERFORMED BY:[address] [place], [place] [phone] MEDICAL DIRECTORNAY SARKAR M.D. Performed By: #### U TER[facility]A, [facility] ####[address] Cocaine Screen,Urine Negative Normal Negative [facility] Comment on above: Performed By: #### U RDS, [facility] ####[place] [id number] [facility] Opiate Screen,Urine Negative Normal Negative [facility] Comment on above: Performed By: #### U RDS, [facility] ####[place] [facility] Phencyclidine Screen,Urine Negative Normal Negative [facility] Comment on above: Performed By: #### U RDS, [facility] ####[address] [facility] HCG ( test) IA.rapi d Ql (U)Ordered By: Axel Christian on 05-25-2023 HCG ( test) Ql (U) Negative [facility] HCG,Urineon 05-25-2023 Beta HCG ( test) Ql (U) Negative Normal [facility] Comment on above: Result Comment: PERF ORMED BY:[address] [place], [place] [phone] MEDICAL DIRECTORNAY SARKAR M.D. Performed By: #### U [facility], [facility] ####[place] [id number] [facility] Opiates [Presence] in Urine by Screen methodOrdered By: Axel Christian on 05-25-2023 Opiates Screen Ql (U) Negative Negative [facility] Phencyclidine Screen Ql (U)O rdered By: Axel Christian on 05-25-2023 Phencyclidine Ql (U) Negative Negative [facility] BioFire Not Detectedon 03-15 BioFire Not Detected Not detected Normal Not Detecte [facility] Comment on above: Result Comment: This is a duplicate RP2.1 COVID (PCR) result to be used for statistical tracking purpose only.PERFORMED BY:[address] [place], [place] [phone] MEDICAL DIRECTORNAY SARKAR M.D. Performed By: #### R SHANTA PANEL UPP., BIOFIRECOVNOTDE ####[address] [place] [address] [facility] COVID-19 Detected/Not Detect edOrdered By: Modesta Chand on 03-15-2023 SARS-CoV-2 (COVID-19) RNA JANAK+non-probe Ql (Nph) Not detected Not Detecte [facility] Comment on above: This is a duplicate RP2.1 COVID (PCR) result to be used for statistical tracking purpose only. Respiratory (Upper) Panel, P CRon 03-15-2023 Respiratory (Upper) Panel, PCR Normal [facility] Comment on above: Performed By: #### R SHANTA PANEL UPP., BIOFIRECOVNOTDE ####[address] [address] [facility] Respiratory pathogens DNA an d RNA panel - Nasopharynx by JANAK with non-probe detectionOrdered By: Modesta Chand on 03-15-2023 Respiratory pathogens DNA and RNA panel JANAK+non-probe (Nph) [facility] Basic Metabolic Panelon 12-29 Calcium [Mass/Vol] 8.5 mg/dL Normal 8.2-10.2 [facility] Comment on above: Performed By: #### B MP, CBC ####[address] [address] [place] Chloride [Moles/Vol] 103 mmol/L Normal 95-114 [facility] Comment on above: Performed By: #### B MP, CBC ####[address] [place] [address] [facility] CO2 [Moles/Vol] 23.4 mmol/L Normal 22.0-30.0 [facility] Comment on above: Performed By: #### B MP, CBC ####[address] [place] [address] [facility] Creatinine [Mass/Vol] 0.77 mg/dL Normal 0.44-1.03 [facility] Comment on above: Performed By: #### B MP, CBC ####[address] [place] [id number] [facility] Creatinine Clr Calc Pharmacy 113.92 [facility] Comment on above: Result Comment: PERF ORMED BY:[address] [place], [place] [phone] MEDICAL DIRECTORNAY SARKAR M.D. Performed By: #### B MP, CBC ####[address] [address] [facility] Estimated GFR ( Mahi > 60 [facility] Comment on above: Result Comment: GFR estimated reference range: According to KDOQI guidelines, <60 ml/min/1.73m2 is sufficient to diagnose a patient with chronic kidney disease. Performed By: #### B MP, CBC ####[id number] [facility] Estimated GFR (Non- Am > 60 [facility] Comment on above: Performed By: #### B MP, CBC ####[address] [address] [facility] Glucose [Mass/Vol] 90 mg/dL Normal 70-100 [facility] Comment on above: Result Comment: [place] Glucose Reference Range is dependent on time and content of last meal. Glucose of more than 200 mg/dL in a nonstressed, ambulatory subject supports the diagnosis of Diabetes Mellitus. ADA recommended reference range Performed By: #### B MP, CBC ####[facility] [address] [place] [address] [facility] Potassium Normal 3.5-5.1 [facility] Comment on above: Result Comment: Spec imen hemolyzed, redraw requested Performed By: #### B MP, CBC ####[facility] [address] [place] [address] [facility] Sodium [Moles/Vol] 134 mmol/L Low 136-146 [facility] Comment on above: Performed By: #### B MP, CBC ####[facility] [address] [place] [id number] [facility] Urea nitrogen [Mass/Vol] 8 mg/dL Low 9-23 [facility] Comment on above: Performed By: #### B MP, CBC ####[address] [place] [id number] [facility] Basophils Auto (Bld) [#/Vol] Ordered By: Anette Stout on 01-07-2023 Basophils (Bld) [#/Vol] 0.0 10*3/uL 0.0-0.1 [facility] Basophils/100 WBC Auto (Bld) Ordered By: Anette Stout on 01-07-2023 Basophils/100 WBC (Bld) 0.4 % . [facility] Complete Blood Count Auto Di ffon 01-07-2023 Basophils (Bld) [#/Vol] 0.0 10*3/uL Normal 0.0-0.1 [facility] Comment on above: Result Comment: PERF ORMED BY:[address] [place], [place] [phone] MEDICAL TASHI SARKAR M.D. Performed By: #### B MP, CBC ####[address] [place] [id number] [facility] Basophils/100 WBC (Bld) 0.4 % Normal . [facility] Comment on above: Performed By: #### B MP, CBC ####[address] [id number] [facility] Eosinophils (Bld) [#/Vol] 0.7 10*3/uL Normal 0.0-0.7 [facility] Comment on above: Performed By: #### B MP, CBC ####[address] Eosinophils/100 WBC (Bld) 5.5 % Normal . [facility] Comment on above: Performed By: #### B MP, CBC ####[address] Erythrocyte distribution width (RBC) [Ratio] 13.5 % Normal 11.9-15.3 [facility] Comment on above: Performed By: #### B MP, CBC ####[address] Hematocrit (Bld) [Volume fraction] 41.5 % Normal 36.0-46.0 [facility] Comment on above: Performed By: #### B MP, CBC ####[address] Hemoglobin (Bld) [Mass/Vol] 14.0 g/dL Normal 12.0-16.0 [facility] Comment on above: Performed By: #### B MP, CBC ####[address] Lymphocytes (Bld) [#/Vol] 2.5 10*3/uL Normal 1.20-4.8 [facility] Comment on above: Performed By: #### B MP, CBC ####[address] Lymphocytes/100 WBC (Bld) 20.9 % Normal . [facility] Comment on above: Performed By: #### B MP, CBC ####[address] MCH (RBC) [Entitic mass] 28.8 pg Normal 25.0-35.0 [facility] Comment on above: Performed By: #### B MP, CBC ####[address] MCV (RBC) [Entitic vol] 85.5 fL Normal 78-102 [facility] Comment on above: Performed By: #### B MP, CBC ####[id number] [facility] Mean Corpuscular HGB Conc 33.7 g/dL Normal 31.0-37.0 [facility] Comment on above: Performed By: #### B MP, CBC ####[id number] [facility] Monocytes (Bld) [#/Vol] 0.9 10*3/uL Normal 0.1-1.00 [facility] Comment on above: Performed By: #### B MP, CBC ####[place] [facility] Monocytes/100 WBC (Bld) 7.5 % Normal . [facility] Comment on above: Performed By: #### B MP, CBC ####[address] Neutrophils (Bld) [#/Vol] 8.0 10*3/uL High 1.2-7.7 [facility] Comment on above: Performed By: #### B MP, CBC ####[place] [facility] Neutrophils/100 WBC (Bld) 65.7 % Normal . [facility] Comment on above: Performed By: #### B MP, CBC ####[address] [id number] [facility] NRBC% 0.1 /100{WBC} Normal 0-0.5 [facility] Comment on above: Performed By: #### B MP, CBC ####[id number] [facility] Platelet mean volume (Bld) [Entitic vol] 8.6 fL Normal 6.3-10.7 [facility] Comment on above: Performed By: #### B MP, CBC ####[id number] [facility] Platelets (Bld) [#/Vol] 222 10*3/uL Normal 150-450 [facility] Comment on above: Performed By: #### B MP, CBC ####[facility] [address] RBC (Bld) [#/Vol] 4.85 10*6/uL Normal 4.10-5.10 [facility] Comment on above: Performed By: #### B MP, CBC ####[facility] [address] WBC (Bld) [#/Vol] 12.1 10*3/uL Normal 4.5-13.5 [facility] Comment on above: Performed By: #### B MP, CBC ####[facility] [id number] ECG 12 lead ECGon 01-07-2023 ECG 12 lead ECG Normal [facility] ECG 12 lead ECG Normal [facility] Eosinophils Auto (Bld) [#/Vo l]Ordered By: Anette Stout on 01-07-2023 Eosinophils (Bld) [#/Vol] 0.7 10*3/uL 0.0-0.7 [facility] Eosinophils/100 WBC Auto (Bl d)Ordered By: Anette Stout on 01-07-2023 Eosinophils/100 WBC (Bld) 5.5 % . [facility] Erythrocyte distribution wid th Auto (RBC) [Ratio]Ordered By: Anette Stout on 01-07-2023 Erythrocyte distribution width (RBC) [Ratio] 13.5 % 11.9-15.3 [facility] Estimated glomerular filtrat ion rate (GFR) non- AmericanOrdered By: Anette Stout on 01-07-2023 GFR/1.73 sq M.predicted among non-blacks MDRD (S/P/Bld) [Vol rate/Area] > 60 mL/Min [facility] Hematocrit Auto (Bld) [Volum e fraction]Ordered By: Anette Stout on 01-07-2023 Hematocrit (Bld) [Volume fraction] 41.5 % 36.0-46.0 [facility] Hemoglobin [Mass/volume] in BloodOrdered By: Anette Stout on 01-07-2023 Hemoglobin (Bld) [Mass/Vol] 14.0 g/dL 12.0-16.0 [facility] Leukocytes [#/volume] correc venkata for nucleated erythrocytes in Blood by Automated counOrdered By: Anette Stout on 01-07-2023 WBC corrected for nucl RBC Auto (Bld) [#/Vol] 12.1 10*3/uL 4.5-13.5 [facility] Lymphocytes Auto (Bld) [#/Vo l]Ordered By: Anette Stout on 01-07-2023 Lymphocytes (Bld) [#/Vol] 2.5 10*3/uL 1.20-4.8 [facility] Lymphocytes/100 WBC Auto (Bl d)Ordered By: Anette Stout on 01-07-2023 Lymphocytes/100 WBC (Bld) 20.9 % . [facility] MCH Auto (RBC) [Entitic mass ]Ordered By: Anette Stout on 01-07-2023 MCH (RBC) [Entitic mass] 28.8 pg 25.0-35.0 [facility] MCHC Auto (RBC) [Mass/Vol]Or dered By: Anette Stout on 01-07-2023 MCHC (RBC) [Mass/Vol] 33.7 g/dL 31.0-37.0 [facility] MCV Auto (RBC) [Entitic vol] Ordered By: Anette Stout on 01-07-2023 MCV (RBC) [Entitic vol] 85.5 fL 78-102 [facility] Monocytes Auto (Bld) [#/Vol] Ordered By: Anette Stout on 01-07-2023 Monocytes (Bld) [#/Vol] 0.9 10*3/uL 0.1-1.00 [facility] Monocytes/100 WBC Auto (Bld) Ordered By: Anette Stout on 01-07-2023 Monocytes/100 WBC (Bld) 7.5 % . [facility] Neutrophils Auto (Bld) [#/Vo l]Ordered By: Anette Stout on 01-07-2023 Neutrophils (Bld) [#/Vol] 8.0 10*3/uL 1.2-7.7 [facility] Neutrophils/100 WBC Auto (Bl d)Ordered By: Anette Stout on 01-07-2023 Neutrophils/100 WBC (Bld) 65.7 % . [facility] No Panel InformationOrdered By: Anette Stout on 01-07-2023 > 60 mL/Min [facility] 113.92 [facility] Nucleated erythrocytes [Pres ence] in Blood by Automated countOrdered By: Anette Stout on 01-07-2023 Nucleated RBC Auto Ql (Bld) 0.1 /100{WBC} 0-0.5 [facility] Platelet mean volume Auto (B ld) [Entitic vol]Ordered By: Anette Stout on 01-07-2023 Platelet mean volume (Bld) [Entitic vol] 8.6 fL 6.3-10.7 [facility] Platelets Auto (Bld) [#/Vol] Ordered By: Anette Stout on 01-07-2023 Platelets (Bld) [#/Vol] 222 10*3/uL 150-450 [facility] RBC Auto (Bld) [#/Vol]Ordere d By: Anette Stout on 01-07-2023 RBC (Bld) [#/Vol] 4.85 10*6/uL 4.10-5.10 [facility] Redraw Potassiumon 3 Potassium [Moles/Vol] 3.2 mmol/L Low 3.5-5.1 [facility] Comment on above: Result Comment: PERF ORMED BY:[facility] [place], [place] [phone] MEDICAL DIRECTORNAY SARKAR M.D. Performed By: #### R EDJACEK K ####[facility] [place] [address] [facility] Serum or plasma anion gap de terminationOrdered By: Anette Stout on 01-07-2023 Anion gap [Moles/Vol] N/A [facility] Serum or plasma calcium tammy urement (mass/volume)Ordered By: Anette Stout on 01-07-2023 Calcium [Mass/Vol] 8.5 mg/dL 8.2-10.2 [facility] Serum or plasma chloride judy surement (moles/volume)Ordered By: Anette Stout on 01-07-2023 Chloride [Moles/Vol] 103 mmol/L 95-114 [facility] Serum or plasma creatinine m easurement with calculation of estimated glomerular filtrOrdered By: Anette Stout on 01-07-2023 Creatinine and Glomerular filtration rate.predicted panel (S/P/Bld) 0.77 mg/dL 0.44-1.03 [facility] Serum or plasma glucose tammy urement (mass/volume)Ordered By: Anette Stout on 01-07-2023 Glucose [Mass/Vol] 90 mg/dL 70-100 [facility] Serum or plasma potassium me asurement (moles/volume)Ordered By: Eliana Bautista on 01-07-2023 Potassium [Moles/Vol] 3.2 mmol/L 3.5-5.1 [facility] Serum or plasma sodium measu rement (moles/volume)Ordered By: Anette Stout on 01-07-2023 Sodium [Moles/Vol] 134 mmol/L 136-146 [facility] Serum or plasma total carbon dioxide measurement (moles/volume)Ordered By: Anette Stout on 01-07-2023 CO2 [Moles/Vol] 23.4 mmol/L 22.0-30.0 [facility] Serum or plasma urea nitroge n measurement (mass/volume)Ordered By: Anette Stout on 01-07-2023 Urea nitrogen [Mass/Vol] 8 mg/dL 9-23 [facility] WBC Auto (Bld) [#/Vol]Ordere d By: Anette Stout on 01-07-2023 WBC (Bld) [#/Vol] 12.1 10*3/uL 4.5-13.5 [facility] Amphetamine Screen Ql (U)Ord ered By: Anette Stout on 01-06-2023 Amphetamines Ql (U) Negative Negative [facility] Automated erythrocytes count in urine sediment (number/area)Ordered By: Rd Brown on 01-06-2023 RBC Auto (Urine sed) [#/Area] None seen [HPF] 0-4 [facility] Automated leukocytes count i n urine sediment (number/area)Ordered By: Rd Brown on 01-06-2023 WBC Auto (Urine sed) [#/Area] 20-49 [HPF] 0-4 [facility] Automated urine hyaline cast s count (number/volume)Ordered By: Rd Brown on 01-06-2023 Hyaline casts Auto (U) [#/Vol] None seen [LPF] 0-1 [facility] Barbiturates [Presence] in U rineOrdered By: Anette Stout on 01-06-2023 Barbiturates Ql (U) Negative Negative [facility] Basophils Auto (Bld) [#/Vol] Ordered By: Rd Brown on 01-06-2023 Basophils (Bld) [#/Vol] 0.0 10*3/uL 0.0-0.1 [facility] Basophils/100 WBC Auto (Bld) Ordered By: Rd Brown on 01-06-2023 Basophils/100 WBC (Bld) 0.3 % . [facility] Benzodiazepines [Presence] i n UrineOrdered By: Anette Stout on 01-06-2023 Benzodiazepines Ql (U) Negative Negative [facility] Bilirubin Test strip Ql (U)O rdered By: Rd Brown on 01-06-2023 Bilirubin Ql (U) Negative Negative [facility] Blood Cultureon 01-06-2023 Bacteria identified Cx Nom (Bld) NO GROWTH 5 DAYS PERFORMED BY: [facility] [address] [facility] [place] [address] PATHOLOGIST OCCUPATIONAL ANALYST NAY SARKAR M.D. [facility] Comment on above: Performed By: #### C UBLD ####[place] [address] [place] [phone] [facility] Bacteria identified Cx Nom (Bld) NO GROWTH 5 DAYS PERFORMED BY: [facility] [address] [place] [address] PATHOLOGIST OCCUPATIONAL ANALYST NAY SARKAR M.D. [facility] Comment on above: Performed By: #### C UBLD ####[facility] [id number] Body fluid albumin measureme nt (mass/volume)Ordered By: Rd Brown on 01-06-2023 Albumin (Body fld) [Mass/Vol] 4.9 g/dL 3.2-5.[address] [facility] [address] abdomen pelvis w conon CT abdomen pelvis w con Normal [facility] Cannabinoids [Presence] in U rine by Screen methodOrdered By: Anette Stout on 01-06-2023 Cannabinoids Screen Ql (U) Positive Negative [facility] Casts typing in urine sedime nt by light microscopyOrdered By: Rd Brown on 01-06-2023 Casts LM Nom (Urine sed) None seen [LPF] None Seen [facility] Color Auto (U)Ordered By: Andrew Brown on 01-06-2023 Color (U) Yellow Yellow [facility] Complete Blood Count Auto Di ffon 01-06-2023 Basophils (Bld) [#/Vol] 0.0 10*3/uL Normal 0.0-0.1 [facility] Comment on above: Result Comment: PERF ORMED BY:[address] [place], [place] [phone] MEDICAL DIRECTORNAY SARKAR M.D. Performed By: #### C MP, CBC ####[place] [address] [place] [phone] [facility] Basophils/100 WBC (Bld) 0.3 % Normal . [facility] Comment on above: Performed By: #### C MP, CBC ####[facility] [place] [phone] [place] Eosinophils (Bld) [#/Vol] 0.4 10*3/uL Normal 0.0-0.7 [facility] Comment on above: Performed By: #### C MP, CBC ####[place] [address] [place] [phone] [facility] Eosinophils/100 WBC (Bld) 2.3 % Normal . [facility] Comment on above: Performed By: #### C MP, CBC ####[facility] [address] Erythrocyte distribution width (RBC) [Ratio] 13.5 % Normal 11.9-15.3 [facility] Comment on above: Performed By: #### C MP, CBC ####[address] Hematocrit (Bld) [Volume fraction] 48.3 % High 36.0-46.0 [facility] Comment on above: Performed By: #### C MP, CBC ####[address] Hemoglobin (Bld) [Mass/Vol] 16.2 g/dL High 12.0-16.0 [facility] Comment on above: Performed By: #### C MP, CBC ####[address] Lymphocytes (Bld) [#/Vol] 3.5 10*3/uL Normal 1.20-4.8 [facility] Comment on above: Performed By: #### C MP, CBC ####[address] Lymphocytes/100 WBC (Bld) 19.9 % Normal . [facility] Comment on above: Performed By: #### C MP, CBC ####[address] MCH (RBC) [Entitic mass] 28.7 pg Normal 25.0-35.0 [facility] Comment on above: Performed By: #### C MP, CBC ####[address] MCV (RBC) [Entitic vol] 85.4 fL Normal 78-102 [facility] Comment on above: Performed By: #### C MP, CBC ####[address] Mean Corpuscular HGB Conc 33.6 g/dL Normal 31.0-37.0 [facility] Comment on above: Performed By: #### C MP, CBC ####[address] [place] [address] [facility] Monocytes (Bld) [#/Vol] 1.3 10*3/uL High 0.1-1.00 [facility] Comment on above: Performed By: #### C MP, CBC ####[place] [id number] [facility] Monocytes/100 WBC (Bld) 15.43 % Normal 0.00-20.00 [facility] Comment on above: Performed By: #### C MP, CBC ####[place] [id number] [facility] Monocytes/100 WBC (Bld) 7.4 % Normal . [facility] Comment on above: Performed By: #### C MP, CBC ####[address] Neutrophils (Bld) [#/Vol] 12.4 10*3/uL High 1.2-7.7 [facility] Comment on above: Performed By: #### C MP, CBC ####[place] [id number] [facility] Neutrophils/100 WBC (Bld) 70.1 % Normal . [facility] Comment on above: Performed By: #### C MP, CBC ####[place] [id number] [facility] NRBC% 0.1 /100{WBC} Normal 0-0.5 [facility] Comment on above: Performed By: #### C MP, CBC ####[place] [id number] [facility] Platelet mean volume (Bld) [Entitic vol] 8.5 fL Normal 6.3-10.7 [facility] Comment on above: Performed By: #### C MP, CBC ####[place] [id number] [facility] Platelets (Bld) [#/Vol] 296 10*3/uL Normal 150-450 [facility] Comment on above: Performed By: #### C MP, CBC ####[address] [address] [facility] RBC (Bld) [#/Vol] 5.65 10*6/uL High 4.10-5.10 [facility] Comment on above: Performed By: #### C MP, CBC ####[place] [address] [place] [address] [facility] WBC (Bld) [#/Vol] 17.7 10*3/uL High 4.5-13.5 [facility] Comment on above: Performed By: #### C MP, CBC ####[address] [address] [facility] Comprehensive Metabolic Pane tushar 01-06-2023 Albumin [Mass/Vol] 4.9 g/dL Normal 3.2-5.5 [facility] Comment on above: Performed By: #### C MP, CBC ####[address] [address] [facility] Albumin/Globulin [Mass ratio] 1.7 {ratio} Normal [facility] Comment on above: Performed By: #### C MP, CBC ####[address] [address] [facility] ALP [Catalytic activity/Vol] 66 U/L Normal 32-92 [facility] Comment on above: Performed By: #### C MP, CBC ####[facility] [place] [address] [facility] ALT [Catalytic activity/Vol] 20 U/L Normal 10-60 [facility] Comment on above: Performed By: #### C MP, CBC ####[address] [address] [facility] Anion gap [Moles/Vol] 19.4 mmol/L High 6.0-15.0 [facility] Comment on above: Performed By: #### C MP, CBC ####[address] [address] [facility] AST [Catalytic activity/Vol] 20 U/L Normal 10-42 [facility] Comment on above: Performed By: #### C MP, CBC ####[facility] [place] [address] [facility] Bilirubin [Mass/Vol] 1.5 mg/dL High 0.3-1.2 [facility] Comment on above: Result Comment: Samp les from patients who have taken Naproxen have shown spurious elevation in Total Bilirubin levels. A metabolite of Naproxen, O-desmethylnaproxen, has been shown to interfere with the Jendrassik-Grof method for measuring Total Bilirubin. Performed By: #### C MP, CBC ####[place] [address] [place] [address] [facility] Calcium [Mass/Vol] 9.8 mg/dL Normal 8.2-10.2 [facility] Comment on above: Performed By: #### C MP, CBC ####[place] [address] [place] [address] [facility] Chloride [Moles/Vol] 91 mmol/L Low 95-114 [facility] Comment on above: Performed By: #### C MP, CBC ####[place] [address] [place] [address] [facility] CO2 [Moles/Vol] 24.3 mmol/L Normal 22.0-30.0 [facility] Comment on above: Performed By: #### C MP, CBC ####[place] [address] [place] [address] [facility] Creatinine [Mass/Vol] 0.86 mg/dL Normal 0.44-1.03 [facility] Comment on above: Performed By: #### C MP, CBC ####[place] [address] [place] [address] [facility] Creatinine Clr Calc Pharmacy 102.00 [facility] Comment on above: Result Comment: PERF ORMED BY:[place] [address] [place] [place] [phone] MEDICAL TASHI SARKAR M.D. Performed By: #### C MP, CBC ####[address] [address] [place] Estimated GFR ( Mahi > 60 Normal [facility] Comment on above: Result Comment: GFR estimated reference range: According to KDOQI guidelines, <60 ml/min/1.73m2 is sufficient to diagnose a patient with chronic kidney disease. Performed By: #### C MP, CBC ####[address] [address] [facility] Estimated GFR (Non- Am > 60 Normal [facility] Comment on above: Performed By: #### C MP, CBC ####[place] [id number] [facility] Globulin (S) [Mass/Vol] 2.9 g/dL Normal [facility] Comment on above: Performed By: #### C MP, CBC ####[place] [id number] [facility] Glucose [Mass/Vol] 80 mg/dL Normal 70-100 [facility] Comment on above: Result Comment: [place] Glucose Reference Range is dependent on time and content of last meal. Glucose of more than 200 mg/dL in a nonstressed, ambulatory subject supports the diagnosis of Diabetes Mellitus. ADA recommended reference range Performed By: #### C MP, CBC ####[place] [id number] [facility] Potassium [Moles/Vol] 2.7 mmol/L Off scale low 3.5-5.1 [facility] Comment on above: Result Comment: Crit ical value result called at 1518 on 01/06/23 Performed By: #### C MP, CBC ####[place] [id number] [facility] Protein [Mass/Vol] 7.8 g/dL Normal 6.1-7.9 [facility] Comment on above: Performed By: #### C MP, CBC ####[place] [id number] [facility] Sodium [Moles/Vol] 132 mmol/L Low 136-146 [facility] Comment on above: Performed By: #### C MP, CBC ####[place] [id number] [facility] Urea nitrogen [Mass/Vol] 19 mg/dL Normal 9-23 [facility] Comment on above: Performed By: #### C MP, CBC ####[address] [address] [place] Dipstick and Microscopicon 0 01-06-2023 Appearance (U) Cloudy Critically abnormal Clear [facility] Comment on above: Order Comment: Name Collection Type:: Clean-Voided Midstream Performed By: #### C UU, ADDONUAPLUS, UHCG ####[address] [address] [facility] Bacteria,Urine 1+ High None Seen [facility] Comment on above: Order Comment: Name Collection Type:: Clean-Voided Midstream Performed By: #### C UU, ADDONUAPLUS, UHCG ####[address] [address] [facility] Bilirubin,Urine Negative Normal Negative [facility] Comment on above: Order Comment: Name Collection Type:: Clean-Voided Midstream Performed By: #### C UU, ADDONUAPLUS, UHCG ####[address] [address] [facility] Color (U) Yellow Normal Yellow [facility] Comment on above: Order Comment: Name Collection Type:: Clean-Voided Midstream Performed By: #### C UU, ADDONUAPLUS, UHCG ####[address] [address] [facility] Glucose Ql (U) Normal Normal Normal [facility] Comment on above: Order Comment: Name Collection Type:: Clean-Voided Midstream Performed By: #### C UU, ADDONUAPLUS, UHCG ####[address] [address] [place] Hyaline Casts,Urine None Seen Normal 0-1 [facility] Comment on above: Order Comment: Name Collection Type:: Clean-Voided Midstream Performed By: #### C UU, ADDONUAPLUS, UHCG ####[address] [address] [place] Ketones Ql (U) 4+ High Negative [facility] Comment on above: Order Comment: Name Collection Type:: Clean-Voided Midstream Performed By: #### C UU, ADDONUAPLUS, UHCG ####[address] Leukocyte esterase Test strip Ql (U) 2+ High Negative [facility] Comment on above: Order Comment: Name Collection Type:: Clean-Voided Midstream Performed By: #### C UU, ADDONUAPLUS, UHCG ####[address] Nitrite,Urine Negative Normal Negative [facility] Comment on above: Order Comment: Name Collection Type:: Clean-Voided Midstream Performed By: #### C UU, ADDONUAPLUS, UHCG ####[address] Occult Blood,Urine 3+ High Negative [facility] Comment on above: Order Comment: Name Collection Type:: Clean-Voided Midstream Performed By: #### C UU, ADDONUAPLUS, UHCG ####[address] Other Casts,Urine None Seen Normal None Seen [facility] Comment on above: Order Comment: Name Collection Type:: Clean-Voided Midstream Performed By: #### C UU, ADDONUAPLUS, UHCG ####[address] pH (U) 6.5 [pH] Normal 5.0-9.0 [facility] Comment on above: Order Comment: Name Collection Type:: Clean-Voided Midstream Performed By: #### C UU, ADDONUAPLUS, UHCG ####[address] Protein (U) [Mass/Vol] 100 mg/dL High Negative [facility] Comment on above: Order Comment: Name Collection Type:: Clean-Voided Midstream Performed By: #### C UU, ADDONUAPLUS, UHCG ####[address] [address] [facility] RBC,Urine None Seen Normal 0-4 [facility] Comment on above: Order Comment: Name Collection Type:: Clean-Voided Midstream Performed By: #### C UU, ADDONUAPLUS, UHCG ####[address] [address] [facility] Specificy Crane,Urine 1.027 Normal 1.001-1.03 0 [facility] Comment on above: Order Comment: Name Collection Type:: Clean-Voided Midstream Performed By: #### C UU, ADDONUAPLUS, UHCG ####[address] [address] [facility] Squamous Epithelial Cell,Urine 10-19 High 0-2 [facility] Comment on above: Order Comment: Name Collection Type:: Clean-Voided Midstream Performed By: #### C UU, ADDONUAPLUS, UHCG ####[address] [address] [facility] Urobilinogen,Urine Normal Normal Normal [facility] Comment on above: Order Comment: Name Collection Type:: Clean-Voided Midstream Performed By: #### C UU, ADDONUAPLUS, UHCG ####[address] [address] [facility] WBC,Urine 20-49 High 0-4 [facility] Comment on above: Order Comment: Name Collection Type:: Clean-Voided Midstream Performed By: #### C UU, ADDONUAPLUS, UHCG ####[address] [address] [facility] Drug Screen,Urineon 01-06-20 23 Amphetamine Screen,Urine Negative Normal Negative [facility] Comment on above: Performed By: #### U RDS ####[address] [address] [facility] Barbiturate Screen,Urine Negative Normal Negative [facility] Comment on above: Performed By: #### U RDS ####[place] [id number] [facility] Benzodiazepines Screen,Urine Negative Normal Negative [facility] Comment on above: Performed By: #### U RDS ####[place] [id number] [facility] Cannabinoid Screen,Urine Positive High Negative [facility] Comment on above: Result Comment: Thes e are unconfirmed results and should not be used for legal purposes. Drug Cut-Off Concentration: AMPH 1000 ng/mL NIKOLAS 200 ng/mL SHRAVAN 200 ng/mL COCM 300 ng/mL OP 300 ng/mL PCP 25 ng/mL THC 20 ng/mLPERFORMED BY:[address] [place], [place] [phone] MEDICAL DIRECTORNAY SARKAR M.D. Performed By: #### U RDS ####[place] [id number] [facility] Cocaine Screen,Urine Negative Normal Negative [facility] Comment on above: Performed By: #### U RDS ####[place] [id number] [facility] Opiate Screen,Urine Negative Normal Negative [facility] Comment on above: Performed By: #### U RDS ####[place] [id number] [facility] Phencyclidine Screen,Urine Negative Normal Negative [facility] Comment on above: Performed By: #### U RDS ####[address] ECG 12 lead ECGon 01-06-2023 ECG 12 lead ECG Normal [facility] Eosinophils Auto (Bld) [#/Vo l]Ordered By: Rd Brown on 01-06-2023 Eosinophils (Bld) [#/Vol] 0.4 10*3/uL 0.0-0.7 [facility] Eosinophils/100 WBC Auto (Bl d)Ordered By: Rd Brown on 01-06-2023 Eosinophils/100 WBC (Bld) 2.3 % . [facility] Erythrocyte distribution wid th Auto (RBC) [Ratio]Ordered By: Rd Brown on 01-06-2023 Erythrocyte distribution width (RBC) [Ratio] 13.5 % 11.9-15.3 [facility] Estimated glomerular filtrat ion rate (GFR) non- AmericanOrdered By: Rd Brown on 01-06-2023 GFR/1.73 sq M.predicted among non-blacks MDRD (S/P/Bld) [Vol rate/Area] > 60 mL/Min [facility] Globulin Calc (S) [Mass/Vol] Ordered By: Rd Brown on 01-06-2023 Globulin (S) [Mass/Vol] 2.9 g/dL [facility] HCG ( test) IA.rapi d Ql (U)Ordered By: Rd Brown on 01-06-2023 HCG ( test) Ql (U) Negative [facility] HCG,Urineon 01-06-2023 Beta HCG ( test) Ql (U) Negative Normal [facility] Comment on above: Order Comment: Name Collection Type:: Clean-Voided Midstream Result Comment: PERF ORMED BY:[facility] [place] [address] [place], [place] [phone] MEDICAL DIRECTORNAY SARKAR M.D. Performed By: #### C TEOFILO [facility] ####[facility] [place] [address] [facility] Hematocrit Auto (Bld) [Volum e fraction]Ordered By: Rd Brown on 01-06-2023 Hematocrit (Bld) [Volume fraction] 48.3 % 36.0-46.0 [facility] Hemoglobin [Mass/volume] in BloodOrdered By: Rd Brown on 01-06-2023 Hemoglobin (Bld) [Mass/Vol] 16.2 g/dL 12.0-16.0 [facility] Ketones Auto test strip (U) [Mass/Vol]Ordered By: Rd Brown on 01-06-2023 Ketones (U) [Mass/Vol] 4+ Negative [facility] Lactic Acidon 01-06-2023 Lactate [Moles/Vol] 1.6 mmol/L Normal 0.5-2.2 [facility] Comment on above: Result Comment: PERF ORMED BY:[place] [address] [place], [place] [phone] MEDICAL DIRECTORNAY SARKAR M.D. Performed By: #### L ACTIC ####[facility] [id number] [place] [address] [facility] Leukocytes [#/volume] correc venkata for nucleated erythrocytes in Blood by Automated counOrdered By: Rd Brown on 01-06-2023 WBC corrected for nucl RBC Auto (Bld) [#/Vol] 17.7 10*3/uL 4.5-13.5 [facility] Lipaseon 01-06-2023 Lipase [Catalytic activity/Vol] 31.0 U/L Normal 22-51 [facility] Comment on above: Result Comment: PERF ORMED BY:[address] [place], [place] [phone] MEDICAL DIRECTORNAY SARKAR M.D. Performed By: #### L IPASE ####[facility] [id number] [place] [address] [facility] Lymphocytes Auto (Bld) [#/Vo l]Ordered By: Rd Brown on 01-06-2023 Lymphocytes (Bld) [#/Vol] 3.5 10*3/uL 1.20-4.8 [facility] Lymphocytes/100 WBC Auto (Bl d)Ordered By: Rd Brown on 01-06-2023 Lymphocytes/100 WBC (Bld) 19.9 % . [facility] MCH Auto (RBC) [Entitic mass ]Ordered By: Rd Brown on 01-06-2023 MCH (RBC) [Entitic mass] 28.7 pg 25.0-35.0 [facility] MCHC Auto (RBC) [Mass/Vol]Or dered By: Rd Brown on 01-06-2023 MCHC (RBC) [Mass/Vol] 33.6 g/dL 31.0-37.0 [facility] MCV Auto (RBC) [Entitic vol] Ordered By: Rd Brown on 01-06-2023 MCV (RBC) [Entitic vol] 85.4 fL 78-102 [facility] Monocyte distribution width [Entitic volume] in Blood by AutomatedOrdered By: Rd Brown on 01-06-2023 Monocyte distribution width Auto (Bld) [Entitic vol] 15.43 % 0.00-20.00 [facility] Monocytes Auto (Bld) [#/Vol] Ordered By: Rd Brown on 01-06-2023 Monocytes (Bld) [#/Vol] 1.3 10*3/uL 0.1-1.00 [facility] Monocytes/100 WBC Auto (Bld) Ordered By: Rd Brown on 01-06-2023 Monocytes/100 WBC (Bld) 7.4 % . [facility] Neutrophils Auto (Bld) [#/Vo l]Ordered By: Rd Brown on 01-06-2023 Neutrophils (Bld) [#/Vol] 12.4 10*3/uL 1.2-7.7 [facility] Neutrophils/100 WBC Auto (Bl d)Ordered By: Rd Brown on 01-06-2023 Neutrophils/100 WBC (Bld) 70.1 % . [facility] Nitrite Test strip Ql (U)Ord ered By: Rd Brown on 01-06-2023 Nitrite Ql (U) Negative Negative [facility] No Panel InformationOrdered By: Anette Stout on 01-06-2023 Negative Negative [facility] No Panel InformationOrdered By: Rd Brown on 01-06-2023 > 60 mL/Min [facility] 31.0 U/L 22-51 [facility] 102.00 [facility] Nucleated erythrocytes [Pres ence] in Blood by Automated countOrdered By: Rd Brown on 01-06-2023 Nucleated RBC Auto Ql (Bld) 0.1 /100{WBC} 0-0.5 [facility] Phencyclidine Screen Ql (U)O rdered By: Anette Stout on 01-06-2023 Phencyclidine Ql (U) Negative Negative [facility] Platelet mean volume Auto (B ld) [Entitic vol]Ordered By: Rd Brown on 01-06-2023 Platelet mean volume (Bld) [Entitic vol] 8.5 fL 6.3-10.7 [facility] Platelets Auto (Bld) [#/Vol] Ordered By: Rd Brown on 01-06-2023 Platelets (Bld) [#/Vol] 296 10*3/uL 150-450 [facility] Protein Auto test strip (U) [Mass/Vol]Ordered By: Rd Brown on 01-06-2023 Protein (U) [Mass/Vol] 100 mg/dL Negative [facility] Protein [Mass/volume] in Ser um or PlasmaOrdered By: Rd Brown on 01-06-2023 Protein [Mass/Vol] 7.8 g/dL 6.1-7.9 [facility] RBC Auto (Bld) [#/Vol]Ordere d By: Rd Brown on 01-06-2023 RBC (Bld) [#/Vol] 5.65 10*6/uL 4.10-5.10 [facility] Serum or plasma alanine florez otransferase measurement without P-5'-P (enzymatic activiOrdered By: Rd Brown on 01-06-2023 ALT No additional P-5'-P [Catalytic activity/Vol] 20 U/L 10-60 [facility] Serum or plasma albumin/glob ulin mass ratioOrdered By: Rd Brown on 01-06-2023 Albumin/Globulin [Mass ratio] 1.7 {ratio} [facility] Serum or plasma alkaline justin sphatase measurement (enzymatic activity/volume)Ordered By: Rd Brown on 01-06-2023 ALP [Catalytic activity/Vol] 66 U/L 32-92 [facility] Serum or plasma anion gap de terminationOrdered By: Rd Brown on 01-06-2023 Anion gap [Moles/Vol] 19.4 mmol/L 6.0-15.0 [facility] Serum or plasma aspartate am inotransferase measurement (enzymatic activity/volume)Ordered By: Rd Brown on 01-06-2023 AST [Catalytic activity/Vol] 20 U/L 10-42 [facility] Serum or plasma calcium tammy urement (mass/volume)Ordered By: Rd Brown on 01-06-2023 Calcium [Mass/Vol] 9.8 mg/dL 8.2-10.2 [facility] Serum or plasma chloride judy surement (moles/volume)Ordered By: Rd Brown on 01-06-2023 Chloride [Moles/Vol] 91 mmol/L 95-114 [facility] Serum or plasma creatinine m easurement with calculation of estimated glomerular filtrOrdered By: Rd Brown on 01-06-2023 Creatinine and Glomerular filtration rate.predicted panel (S/P/Bld) 0.86 mg/dL 0.44-1.03 [facility] Serum or plasma glucose tammy urement (mass/volume)Ordered By: Rd Brown on 01-06-2023 Glucose [Mass/Vol] 80 mg/dL 70-100 [facility] Serum or plasma potassium me asurement (moles/volume)Ordered By: Rd Brown on 01-06-2023 Potassium [Moles/Vol] 2.7 mmol/L 3.5-5.1 [facility] Serum or plasma sodium measu rement (moles/volume)Ordered By: Rd Brown on 01-06-2023 Sodium [Moles/Vol] 132 mmol/L 136-146 [facility] Serum or plasma total biliru bin measurement (mass/volume)Ordered By: Rd Brown on 01-06-2023 Bilirubin [Mass/Vol] 1.5 mg/dL 0.3-1.2 [facility] Serum or plasma total carbon dioxide measurement (moles/volume)Ordered By: Rd Brown on 01-06-2023 CO2 [Moles/Vol] 24.3 mmol/L 22.0-30.0 [facility] Serum or plasma urea nitroge n measurement (mass/volume)Ordered By: Rd Brown on 01-06-2023 Urea nitrogen [Mass/Vol] 19 mg/dL 9-23 [facility] Specific gravity Auto test s trip (U) [Rel density]Ordered By: Rd Brown on 01-06-2023 Specific gravity (U) [Rel density] 1.027 1.001-1.03 0 [facility] Squamous epithelial cells de tection in urine sediment by light microscopyOrdered By: Rd Brown on 01-06-2023 Epithelial cells.squamous LM Ql (Urine sed) 10-19 [HPF] 0-2 [facility] Troponin I High Sensitivityo n 01-06-2023 Troponin I High Sensitivity 6 pg/mL Normal 0-15 [facility] Comment on above: Result Comment: PERF ORMED BY:[facility] [place]PauRossyS[place], [place] [phone] MEDICAL DIRECTORNAY SARKAR M.D. Performed By: #### H S TROP ####[facility] [id number] [place] [address] [facility] Troponin I.cardiac [Mass/vol ume] in Serum or Plasma by High sensitivity methodOrdered By: Federico Randolph on 01-06-2023 Troponin I.cardiac High sensitivity method [Mass/Vol] 6 pg/mL 0-15 [facility] Urine Cultureon 01-06-2023 Bacteria identified Cx Nom (U) Normal [facility] Comment on above: Performed By: #### C UU, ADDONUAPLUS, UHCG ####[id number] [place] [address] [facility] Urine bacteria detection by automated methodOrdered By: Rd Brown on 01-06-2023 Bacteria Auto Ql (U) 1+ None Seen [facility] Urine clarity by refractomet ry automatedOrdered By: Rd Brown on 01-06-2023 Clarity Refractometry automated (U) Cloudy Clear [facility] Urine cocaine detectionOrder ed By: Anette Stout on 01-06-2023 Cocaine Ql (U) Negative Negative [facility] Urine glucose measurement by automated test strip (mass/volume)Ordered By: Rd Brown on 01-06-2023 Glucose Auto test strip (U) [Mass/Vol] Normal mg/dL Normal [facility] Urine hemoglobin detection b y automated test stripOrdered By: Rd Brown on 01-06-2023 Hemoglobin Auto test strip Ql (U) 3+ Negative [facility] Urine lactic acid measuremen tOrdered By: Rd Brown on 01-06-2023 Lactate (U) [Moles/Vol] 1.6 mmol/L 0.5-2.2 [facility] Urine leukocyte esterase det ection by automated test stripOrdered By: Rd Brown on 01-06-2023 Leukocyte esterase Auto test strip Ql (U) 2+ Negative [facility] Urobilinogen Auto test strip (U) [Mass/Vol]Ordered By: Rd Brown on 01-06-2023 Urobilinogen (U) [Mass/Vol] Normal mg/dL Normal [facility] WBC Auto (Bld) [#/Vol]Ordere d By: Rd Brown on 01-06-2023 WBC (Bld) [#/Vol] 17.7 10*3/uL 4.5-13.5 [facility] XR chest 1V portableon 01-06 XR chest 1V portable Normal [facility] XR pelvis 1-2Von 01-06-2023 XR pelvis 1-2V Normal [facility] pH Auto test strip (U)Ordere d By: Rd Brown on 01-06-2023 pH (U) 6.5 [pH] 5.0-9.0 [facility] Albumin [Mass/volume] in Ser um or PlasmaOrdered By: Ravi Arguello on 01-02-2023 Albumin [Mass/Vol] 5.0 g/dL 3.2-5.5 [facility] Automated erythrocytes count in urine sediment (number/area)Ordered By: Ravi Arguello on 01-02-2023 RBC Auto (Urine sed) [#/Area] 3-4 [HPF] 0-4 [facility] Automated leukocytes count i n urine sediment (number/area)Ordered By: Ravi Arguello on 01-02-2023 WBC Auto (Urine sed) [#/Area] 50-100 [HPF] 0-4 [facility] Automated urine hyaline cast s count (number/volume)Ordered By: Ravi Arguello on 01-02-2023 Hyaline casts Auto (U) [#/Vol] None seen [LPF] 0-1 [facility] Basophils Auto (Bld) [#/Vol] Ordered By: Ravi Arguello on 01-02-2023 Basophils (Bld) [#/Vol] 0.1 10*3/uL 0.0-0.1 [facility] Basophils/100 WBC Auto (Bld) Ordered By: Ravi Arguello on 01-02-2023 Basophils/100 WBC (Bld) 0.5 % . [facility] Bilirubin Test strip Ql (U)O rdered By: Ravi Arguello on 01-02-2023 Bilirubin Ql (U) Negative Negative [facility] Casts typing in urine sedime nt by light microscopyOrdered By: Ravi Arguello on 01-02-2023 Casts LM Nom (Urine sed) None seen [LPF] None Seen [facility] Color Auto (U)Ordered By: Jr Arguello on 01-02-2023 Color (U) Yellow Yellow [facility] Complete Blood Count Auto Di ffon 01-02-2023 Basophils (Bld) [#/Vol] 0.1 10*3/uL Normal 0.0-0.1 [facility] Comment on above: Result Comment: PERF ORMED BY:[address] [place], [place] [phone] MEDICAL DIRECTORNAY SARKAR M.D. Performed By: #### L IPASE, CMP, CBC ####[address] Basophils/100 WBC (Bld) 0.5 % Normal . [facility] Comment on above: Performed By: #### L IPASE, CMP, CBC ####[address] Eosinophils (Bld) [#/Vol] 0.0 10*3/uL Normal 0.0-0.7 [facility] Comment on above: Performed By: #### L IPASE, CMP, CBC ####[address] Eosinophils/100 WBC (Bld) 0.0 % Normal . [facility] Comment on above: Performed By: #### L IPASE, CMP, CBC ####[address] Erythrocyte distribution width (RBC) [Ratio] 13.9 % Normal 11.9-15.3 [facility] Comment on above: Performed By: #### L IPASE, CMP, CBC ####[address] Hematocrit (Bld) [Volume fraction] 42.1 % Normal 36.0-46.0 [facility] Comment on above: Performed By: #### L IPASE CMP, CBC ####[address] Hemoglobin (Bld) [Mass/Vol] 14.0 g/dL Normal 12.0-16.0 [facility] Comment on above: Performed By: #### L IPASE CMP, CBC ####[address] Lymphocytes (Bld) [#/Vol] 1.4 10*3/uL Normal 1.20-4.8 [facility] Comment on above: Performed By: #### L IPASE CMP, CBC ####[address] Lymphocytes/100 WBC (Bld) 10.1 % Normal . [facility] Comment on above: Performed By: #### L IPASE CMP, CBC ####[address] MCH (RBC) [Entitic mass] 28.6 pg Normal 25.0-35.0 [facility] Comment on above: Performed By: #### L IPASE CMP, CBC ####[address] MCV (RBC) [Entitic vol] 86.2 fL Normal 78-102 [facility] Comment on above: Performed By: #### L IPASE CMP, CBC ####[address] Mean Corpuscular HGB Conc 33.2 g/dL Normal 31.0-37.0 [facility] Comment on above: Performed By: #### L IPASE, CMP, CBC ####[address] Monocytes (Bld) [#/Vol] 1.0 10*3/uL Normal 0.1-1.00 [facility] Comment on above: Performed By: #### L IPASE, CMP, CBC ####[id number] [facility] Monocytes/100 WBC (Bld) 16.52 % Normal 0.00-20.00 [facility] Comment on above: Performed By: #### L IPASE, CMP, CBC ####[id number] [facility] Monocytes/100 WBC (Bld) 7.0 % Normal . [facility] Comment on above: Performed By: #### L IPASE, CMP, CBC ####[address] Neutrophils (Bld) [#/Vol] 11.6 10*3/uL High 1.2-7.7 [facility] Comment on above: Performed By: #### L IPASE, CMP, CBC ####[address] Neutrophils/100 WBC (Bld) 82.4 % Normal . [facility] Comment on above: Performed By: #### L IPASE, CMP, CBC ####[address] NRBC% 0.0 /100{WBC} Normal 0-0.5 [facility] Comment on above: Performed By: #### L IPASE, CMP, CBC ####[id number] [facility] Platelet mean volume (Bld) [Entitic vol] 8.4 fL Normal 6.3-10.7 [facility] Comment on above: Performed By: #### L IPASE, CMP, CBC ####[id number] [facility] Platelets (Bld) [#/Vol] 299 10*3/uL Normal 150-450 [facility] Comment on above: Performed By: #### L IPASE, CMP, CBC ####[id number] [facility] RBC (Bld) [#/Vol] 4.89 10*6/uL Normal 4.10-5.10 [facility] Comment on above: Performed By: #### L IPASE CMP, CBC ####[address] WBC (Bld) [#/Vol] 14.1 10*3/uL High 4.5-13.5 [facility] Comment on above: Performed By: #### L IPASE, CMP, CBC ####[address] [id number] [facility] Comprehensive Metabolic Pane tushar 01-02-2023 Albumin [Mass/Vol] 5.0 g/dL Normal 3.2-5.5 [facility] Comment on above: Performed By: #### L IPASE CMP, CBC ####[address] Albumin/Globulin [Mass ratio] 1.7 {ratio} Normal [facility] Comment on above: Performed By: #### L IPASE, CMP, CBC ####[address] ALP [Catalytic activity/Vol] 60 U/L Normal 32-92 [facility] Comment on above: Performed By: #### L IPASE CMP, CBC ####[id number] [facility] ALT [Catalytic activity/Vol] 26 U/L Normal 10-60 [facility] Comment on above: Performed By: #### L IPASE, CMP, CBC ####[id number] [facility] Anion gap [Moles/Vol] 16.4 mmol/L High 6.0-15.0 [facility] Comment on above: Performed By: #### L IPASE, CMP, CBC ####[id number] [facility] AST [Catalytic activity/Vol] 32 U/L Normal 10-42 [facility] Comment on above: Performed By: #### L IPASE, CMP, CBC ####[address] [place] [address] [facility] Bilirubin [Mass/Vol] 0.8 mg/dL Normal 0.3-1.2 [facility] Comment on above: Performed By: #### L IPASE, CMP, CBC ####[id number] [place] [address] [facility] Calcium [Mass/Vol] 9.8 mg/dL Normal 8.2-10.2 [facility] Comment on above: Performed By: #### L IPASE, CMP, CBC ####[address] [address] [facility] Chloride [Moles/Vol] 106 mmol/L Normal 95-114 [facility] Comment on above: Performed By: #### L IPASE, CMP, CBC ####[address] [address] [facility] CO2 [Moles/Vol] 22.8 mmol/L Normal 22.0-30.0 [facility] Comment on above: Performed By: #### L IPASE, CMP, CBC ####[address] [address] [facility] Creatinine [Mass/Vol] 1.01 mg/dL Normal 0.44-1.03 [facility] Comment on above: Performed By: #### L IPASE, CMP, CBC ####[address] [address] [facility] Creatinine Clr Calc Pharmacy 86.85 [facility] Comment on above: Performed By: #### L IPASE, CMP, CBC ####[address] [address] [facility] Estimated GFR ( Mahi > 60 [facility] Comment on above: Result Comment: GFR estimated reference range: According to KDOQI guidelines, <60 ml/min/1.73m2 is sufficient to diagnose a patient with chronic kidney disease. Performed By: #### L IPASE, CMP, CBC ####[address] [address] [facility] Estimated GFR (Non- Am > 60 [facility] Comment on above: Performed By: #### L IPASE, CMP, CBC ####[address] [place] [address] [facility] Globulin (S) [Mass/Vol] 2.9 g/dL Normal [facility] Comment on above: Performed By: #### L IPASE, CMP, CBC ####[address] [place] [address] [facility] Glucose [Mass/Vol] 123 mg/dL High 70-100 [facility] Comment on above: Result Comment: [facility] Glucose Reference Range is dependent on time and content of last meal. Glucose of more than 200 mg/dL in a nonstressed, ambulatory subject supports the diagnosis of Diabetes Mellitus. ADA recommended reference range Performed By: #### L IPASE CMP, CBC ####[id number] [place] [address] [facility] Potassium [Moles/Vol] 3.2 mmol/L Low 3.5-5.1 [facility] Comment on above: Performed By: #### L IPASE CMP, CBC ####[address] [place] [address] [facility] Protein [Mass/Vol] 7.9 g/dL Normal 6.1-7.9 [facility] Comment on above: Performed By: #### L IPASE CMP, CBC ####[address] [address] [facility] Sodium [Moles/Vol] 142 mmol/L Normal 136-146 [facility] Comment on above: Performed By: #### L IPASE, CMP, CBC ####[address] [place] [address] [facility] Urea nitrogen [Mass/Vol] 22 mg/dL Normal 9-23 [facility] Comment on above: Performed By: #### L IPASE, CMP, CBC ####[address] [place] [address] [place] Dipstick and Microscopicon 0 01-02-2023 Appearance (U) Turbid Critically abnormal Clear [facility] Comment on above: Order Comment: Name Collection Type:: Clean-Voided Midstream Performed By: #### U HCG, ADDONUAPLUS, CUU ####[id number] [place] Bacteria,Urine 3+ High None Seen [facility] Comment on above: Order Comment: Name Collection Type:: Clean-Voided Midstream Performed By: #### U HCG, ADDONUAPLUS, CUU ####[id number] [place] Bilirubin,Urine Negative Normal Negative [facility] Comment on above: Order Comment: Name Collection Type:: Clean-Voided Midstream Performed By: #### U HCG, ADDONUAPLUS, CUU ####[address] Color (U) Yellow Normal Yellow [facility] Comment on above: Order Comment: Name Collection Type:: Clean-Voided Midstream Performed By: #### U HCG, ADDONUAPLUS, CUU ####[address] Glucose Ql (U) Normal Normal Normal [facility] Comment on above: Order Comment: Name Collection Type:: Clean-Voided Midstream Performed By: #### U HCG, ADDONUAPLUS, CUU ####[id number] [facility] Hyaline Casts,Urine None Seen Normal 0-1 [facility] Comment on above: Order Comment: Name Collection Type:: Clean-Voided Midstream Performed By: #### U HCG, ADDONUAPLUS, CUU ####[id number] [place] Ketones Ql (U) 3+ High Negative [facility] Comment on above: Order Comment: Name Collection Type:: Clean-Voided Midstream Performed By: #### U HCG, ADDONUAPLUS, CUU ####[address] [id number] [facility] Leukocyte esterase Test strip Ql (U) 3+ High Negative [facility] Comment on above: Order Comment: Name Collection Type:: Clean-Voided Midstream Performed By: #### U HCG, ADDONUAPLUS, CUU ####[address] Nitrite,Urine Negative Normal Negative [facility] Comment on above: Order Comment: Name Collection Type:: Clean-Voided Midstream Performed By: #### U HCG, ADDONUAPLUS, CUU ####[address] Occult Blood,Urine Negative Normal Negative [facility] Comment on above: Order Comment: Name Collection Type:: Clean-Voided Midstream Performed By: #### U HCG, ADDONUAPLUS, CUU ####[address] Other Casts,Urine None Seen Normal None Seen [facility] Comment on above: Order Comment: Name Collection Type:: Clean-Voided Midstream Performed By: #### U HCG, ADDONUAPLUS, CUU ####[address] pH (U) 6.0 [pH] Normal 5.0-9.0 [facility] Comment on above: Order Comment: Name Collection Type:: Clean-Voided Midstream Performed By: #### U HCG, ADDONUAPLUS, CUU ####[id number] [facility] Protein (U) [Mass/Vol] 100 mg/dL High Negative [facility] Comment on above: Order Comment: Name Collection Type:: Clean-Voided Midstream Performed By: #### U HCG, ADDONUAPLUS, CUU ####[id number] [facility] RBC,Urine 3-4 Normal 0-4 [facility] Comment on above: Order Comment: Name Collection Type:: Clean-Voided Midstream Performed By: #### U HCG, ADDONUAPLUS, CUU ####[address] Specificy Crane,Urine 1.036 High 1.001-1.03 0 [facility] Comment on above: Order Comment: Name Collection Type:: Clean-Voided Midstream Performed By: #### U HCG, ADDONUAPLUS, CUU ####[address] [id number] Squamous Epithelial Cell,Urine Innumerable High 0-2 [facility] Comment on above: Order Comment: Name Collection Type:: Clean-Voided Midstream Performed By: #### U HCG, ADDONUAPLUS, CUU ####[id number] [facility] Urobilinogen,Urine Normal Normal Normal [facility] Comment on above: Order Comment: Name Collection Type:: Clean-Voided Midstream Performed By: #### U HCG, ADDONUAPLUS, CUU ####[address] [place] [address] [facility] WBC,Urine 50-100 High 0-4 [facility] Comment on above: Order Comment: Name Collection Type:: Clean-Voided Midstream Performed By: #### U HCG, ADDONUAPLUS, CUU ####[address] ECG 12 lead ECGon 01-02-2023 ECG 12 lead ECG Normal [facility] Eosinophils Auto (Bld) [#/Vo l]Ordered By: Ravi Arguello on 01-02-2023 Eosinophils (Bld) [#/Vol] 0.0 10*3/uL 0.0-0.7 [facility] Eosinophils/100 WBC Auto (Bl d)Ordered By: Ravi Arguello on 01-02-2023 Eosinophils/100 WBC (Bld) 0.0 % . [facility] Erythrocyte distribution wid th Auto (RBC) [Ratio]Ordered By: Ravi Arguello on 01-02-2023 Erythrocyte distribution width (RBC) [Ratio] 13.9 % 11.9-15.3 [facility] Estimated glomerular filtrat ion rate (GFR) non- AmericanOrdered By: Ravi Arguello on 01-02-2023 GFR/1.73 sq M.predicted among non-blacks MDRD (S/P/Bld) [Vol rate/Area] > 60 mL/Min [facility] Globulin Calc (S) [Mass/Vol] Ordered By: Ravi Arguello on 01-02-2023 Globulin (S) [Mass/Vol] 2.9 g/dL [facility] HCG ( test) IA.rapi d Ql (U)Ordered By: Ravi Arguello on 01-02-2023 HCG ( test) Ql (U) Negative [facility] HCG,Urineon 01-02-2023 Beta HCG ( test) Ql (U) Negative Normal [facility] Comment on above: Order Comment: Name Collection Type:: Clean-Voided Midstream Result Comment: PERF ORMED BY:[address] [place], [place] [phone] MEDICAL DIRECTORNAY SARKAR M.D. Performed By: #### U HCG, ADDONUAPLUS, CUU ####[address] [address] [facility] Hematocrit Auto (Bld) [Volum e fraction]Ordered By: Ravi Arguello on 01-02-2023 Hematocrit (Bld) [Volume fraction] 42.1 % 36.0-46.0 [facility] Hemoglobin [Mass/volume] in BloodOrdered By: Ravi Arguello on 01-02-2023 Hemoglobin (Bld) [Mass/Vol] 14.0 g/dL 12.0-16.0 [facility] Ketones Auto test strip (U) [Mass/Vol]Ordered By: Ravi Arguello on 01-02-2023 Ketones (U) [Mass/Vol] 3+ [facility] Leuk[facility] [#/volume] correc venkata for nucleated erythrocytes in Blood by Automated counOrdered By: Ravi Arguello on 01-02-2023 WBC corrected for nucl RBC Auto (Bld) [#/Vol] 14.1 10*3/uL 4.5-13.5 [facility] Lipaseon 01-02-2023 Lipase [Catalytic activity/Vol] 29.0 U/L Normal 22-51 [facility] Comment on above: Result Comment: PERF ORMED BY:[address] [place], [place] [phone] MEDICAL DIRECTORNAY SARKAR M.D. Performed By: #### L IPASE, CMP, CBC ####[facility] [id number] [place] [address] [facility] Lymphocytes Auto (Bld) [#/Vo l]Ordered By: Ravi Arguello on 01-02-2023 Lymphocytes (Bld) [#/Vol] 1.4 10*3/uL 1.20-4.8 [facility] Lymphocytes/100 WBC Auto (Bl d)Ordered By: Ravi Arguello on 01-02-2023 Lymphocytes/100 WBC (Bld) 10.1 % . [facility] MCH Auto (RBC) [Entitic mass ]Ordered By: Ravi Arguello on 01-02-2023 MCH (RBC) [Entitic mass] 28.6 pg 25.0-35.0 [facility] MCHC Auto (RBC) [Mass/Vol]Or dered By: Ravi Arguello on 01-02-2023 MCHC (RBC) [Mass/Vol] 33.2 g/dL 31.0-37.0 [facility] MCV Auto (RBC) [Entitic vol] Ordered By: Ravi Arguello on 01-02-2023 MCV (RBC) [Entitic vol] 86.2 fL 78-102 [facility] Monocyte distribution width [Entitic volume] in Blood by AutomatedOrdered By: Ravi Arguello on 01-02-2023 Monocyte distribution width Auto (Bld) [Entitic vol] 16.52 % 0.00-20.00 [facility] Monocytes Auto (Bld) [#/Vol] Ordered By: Ravi Arguello on 01-02-2023 Monocytes (Bld) [#/Vol] 1.0 10*3/uL 0.1-1.00 [facility] Monocytes/100 WBC Auto (Bld) Ordered By: Ravi Arguello on 01-02-2023 Monocytes/100 WBC (Bld) 7.0 % . [facility] Neutrophils Auto (Bld) [#/Vo l]Ordered By: Ravi Arguello on 01-02-2023 Neutrophils (Bld) [#/Vol] 11.6 10*3/uL 1.2-7.7 [facility] Neutrophils/100 WBC Auto (Bl d)Ordered By: Ravi Arguello on 01-02-2023 Neutrophils/100 WBC (Bld) 82.4 % . [facility] Nitrite Test strip Ql (U)Ord ered By: Ravi Arguello on 01-02-2023 Nitrite Ql (U) Negative Negative [facility] No Panel InformationOrdered By: Ravi Arguello on 01-02-2023 > 60 mL/Min [facility] 29.0 U/L 22-51 [facility] 86.85 [facility] Nucleated erythrocytes [Pres ence] in Blood by Automated countOrdered By: Ravi Arguello on 01-02-2023 Nucleated RBC Auto Ql (Bld) 0.0 /100{WBC} 0-0.5 [facility] Platelet mean volume Auto (B ld) [Entitic vol]Ordered By: Ravi Arguello on 01-02-2023 Platelet mean volume (Bld) [Entitic vol] 8.4 fL 6.3-10.7 [facility] Platelets Auto (Bld) [#/Vol] Ordered By: Ravi Arguello on 01-02-2023 Platelets (Bld) [#/Vol] 299 10*3/uL 150-450 [facility] Protein Auto test strip (U) [Mass/Vol]Ordered By: Ravi Arguello on 01-02-2023 Protein (U) [Mass/Vol] 100 mg/dL Negative [facility] Protein [Mass/volume] in Ser um or PlasmaOrdered By: Ravi Arguello on 01-02-2023 Protein [Mass/Vol] 7.9 g/dL 6.1-7.9 [facility] RBC Auto (Bld) [#/Vol]Ordere d By: Ravi Arguello on 01-02-2023 RBC (Bld) [#/Vol] 4.89 10*6/uL 4.10-5.10 [facility] Serum or plasma alanine florez otransferase measurement without P-5'-P (enzymatic activiOrdered By: Ravi Arguello on 01-02-2023 ALT No additional P-5'-P [Catalytic activity/Vol] 26 U/L 10-60 [facility] Serum or plasma albumin/glob ulin mass ratioOrdered By: Ravi Arguello on 01-02-2023 Albumin/Globulin [Mass ratio] 1.7 {ratio} [facility] Serum or plasma alkaline justin sphatase measurement (enzymatic activity/volume)Ordered By: Ravi Arguello on 01-02-2023 ALP [Catalytic activity/Vol] 60 U/L 32-92 [facility] Serum or plasma anion gap de terminationOrdered By: Ravi Arguello on 01-02-2023 Anion gap [Moles/Vol] 16.4 mmol/L 6.0-15.0 [facility] Serum or plasma aspartate am inotransferase measurement (enzymatic activity/volume)Ordered By: Ravi Arguello on 01-02-2023 AST [Catalytic activity/Vol] 32 U/L 10-42 [facility] Serum or plasma calcium tammy urement (mass/volume)Ordered By: Ravi Arguello on 01-02-2023 Calcium [Mass/Vol] 9.8 mg/dL 8.2-10.2 [facility] Serum or plasma chloride judy surement (moles/volume)Ordered By: Ravi Arguello on 01-02-2023 Chloride [Moles/Vol] 106 mmol/L 95-114 [facility] Serum or plasma creatinine m easurement with calculation of estimated glomerular filtrOrdered By: Ravi Arguello on 01-02-2023 Creatinine and Glomerular filtration rate.predicted panel (S/P/Bld) 1.01 mg/dL 0.44-1.03 [facility] Serum or plasma glucose tammy urement (mass/volume)Ordered By: Ravi Arguello on 01-02-2023 Glucose [Mass/Vol] 123 mg/dL 70-100 [facility] Serum or plasma potassium me asurement (moles/volume)Ordered By: Ravi Arguello on 01-02-2023 Potassium [Moles/Vol] 3.2 mmol/L 3.5-5.1 [facility] Serum or plasma sodium measu rement (moles/volume)Ordered By: Ravi Arguello on 01-02-2023 Sodium [Moles/Vol] 142 mmol/L 136-146 [facility] Serum or plasma total biliru bin measurement (mass/volume)Ordered By: Ravi Arguello on 01-02-2023 Bilirubin [Mass/Vol] 0.8 mg/dL 0.3-1.2 [facility] Serum or plasma total carbon dioxide measurement (moles/volume)Ordered By: Ravi Arguello on 01-02-2023 CO2 [Moles/Vol] 22.8 mmol/L 22.0-30.0 [facility] Serum or plasma urea nitroge n measurement (mass/volume)Ordered By: Ravi Arguello on 01-02-2023 Urea nitrogen [Mass/Vol] 22 mg/dL 9-23 [facility] Specific gravity Auto test s trip (U) [Rel density]Ordered By: Ravi Arguello on 01-02-2023 Specific gravity (U) [Rel density] 1.036 1.001-1.03 0 [facility] Squamous epithelial cells de tection in urine sediment by light microscopyOrdered By: Ravi Arguello on 01-02-2023 Epithelial cells.squamous LM Ql (Urine sed) Innumerable [HPF] 0-2 [facility] Urine Cultureon 01-02-2023 Bacteria identified Cx Nom (U) Urine Culture Results 50,000 colonies/ml Mixed Bacterial Skin Contaminants 2 Days PERFORMED BY: [facility] [address] [place] [address] PATHOLOGIST OCCUPATIONAL ANALYST NAY SARKAR M.D. Normal [facility] Comment on above: Performed By: #### U HCG, ADDONUAPLUS, CUU ####[facility] [id number] Urine bacteria detection by automated methodOrdered By: Ravi Arguello on 01-02-2023 Bacteria Auto Ql (U) 3+ None Seen [facility] Urine clarity by refractomet ry automatedOrdered By: Ravi Arguello on 01-02-2023 Clarity Refractometry automated (U) Turbid Clear [facility] Urine culture routineOrdered By: Ravi Arguello on 01-02-2023 Bacteria identified Cx Nom (U) [facility] Urine glucose measurement by automated test strip (mass/volume)Ordered By: Ravi Arguello on 01-02-2023 Glucose Auto test strip (U) [Mass/Vol] Normal mg/dL Normal [facility] Urine hemoglobin detection b y automated test stripOrdered By: Ravi Arguello on 01-02-2023 Hemoglobin Auto test strip Ql (U) Negative Negative [facility] Urine leukocyte esterase det ection by automated test stripOrdered By: Ravi Arguello on 01-02-2023 Leukocyte esterase Auto test strip Ql (U) 3+ Negative [facility] Urobilinogen Auto test strip (U) [Mass/Vol]Ordered By: Ravi Arguello on 01-02-2023 Urobilinogen (U) [Mass/Vol] Normal mg/dL Normal [facility] WBC Auto (Bld) [#/Vol]Ordere d By: Ravi Arguello on 01-02-2023 WBC (Bld) [#/Vol] 14.1 10*3/uL 4.5-13.5 [facility] pH Auto test strip (U)Ordere d By: Ravi Arguello on 01-02-2023 pH (U) 6.0 [pH] 5.0-9.0 [facility] CULTURE URINEon 01-01-2023 CULTURE URINE Culture Observations : LIGHT GROWTH OF MIXED GENITAL JORI. NO POTENTIAL PATHOGENS SEEN. Normal [facility] Comment on above: Performed By: #### U RCX #### [facility] [address] [address] [address] Dacia Ackerman [facility]on SARS-CoV-2 (COVID-19) RNA JANAK+probe Ql (Unsp spec) Not detected Normal NOT DETECTED [facility] Comment on above: Result Comment: When diagnostic testing is negative, the possibility of a false negative should be considered in the context of a patient's recent exposures and the presence of clinical signs and symptoms consistent with SARS-CoV-2. This test is not yet approved or cleared by the [place] FDA. When there are no FDA-approved or cleared tests available, and other criteria are met, FDA can make tests available under an emergency access mechanism called an Emergency Use Authorization (EUA). The EUA for this test is supported by the Information Writer of Health and Human Service's declaration that circumstances exist to justify the emergency use of in vitro diagnostics for the detection and/or diagnosis of the virus that causes COVID-19. This EUA will remain in effect for the duration of the COVID-19 declaration justifying emergency of IVDs, unless it is terminated or revoked by the FDA (after which the test may no longer be used). Performed By: #### C VDTBH #### [facility] [address] [place] [address] Dr. Dacia Ackerman DRUG SCREEN RAPID (URINE)on 01-01-2023 AMP Negative Normal NEGATIVE [facility] Comment on above: Performed By: #### D RUGRPD #### [facility] [address] [place] [address] Dr. Dacia Ackerman BAR Negative Normal NEGATIVE [facility] Comment on above: Performed By: #### D RUGRPD #### [facility] [address] [place] [address] Dr. Dacia Ackerman BUP Negative Normal NEGATIVE [facility] Comment on above: Performed By: #### D RUGRPD #### [facility] [address] [place] [address] Dr. Dacia Ackerman BZO Negative Normal NEGATIVE [facility] Comment on above: Performed By: #### D RUGRPD #### [facility] [address] [place] [address] Dr. Dacia Ackerman MELINA Negative Normal NEGATIVE [facility] Comment on above: Performed By: #### D RUGRPD #### [facility] [address] [place] [address] Dr. Dacia Ackerman CUT-OFFS SEE BELOW Normal [facility] Comment on above: Result Comment: AMP (Amphetamine): 500ng/mL, BAR (Barbituates): 200 ng/mL, BZO (Benzodiazepines): 150 ng/mL, BUP (Buprenorphine): 10 ng/mL, MELINA (Cocaine): 150 ng/mL, mAMP (Methamphetamine): 500 ng/mL, MTD (Methadone): 200 ng/mL, OPI (Opiates): 100 ng/mL, OXY (Oxycodone): 100 ng/mL, PCP (Phencyclidine): 25 ng/mL, PPX (Propoxyphene): 300 ng/mL, THC (Cannabinoids): 50 ng/mL, TCA (Trycyclic Antidepressants): 300 ng/mL Performed By: #### D RUGRPD #### [facility] [address] [place] [address] Dr. Dacia Ackerman DRUG CUT HEADER DRUG CLASS TEST SYST EM CUT-OFF CONCENTRATIONS ARE FOLLOWS: Normal [facility] Comment on above: Performed By: #### D RUGRPD #### [facility] [address] [place] [address] Dr. Dacia Ackerman mAMP Negative Normal NEGATIVE [facility] Comment on above: Performed By: #### D RUGRPD #### [facility] [address] [place] [address] Dr. Dacia Ackerman MTD Negative Normal NEGATIVE [facility] Comment on above: Performed By: #### D RUGRPD #### [facility] [address] [place] [address] Dr. Dacia Ackerman OPI Negative Normal NEGATIVE [facility] Comment on above: Performed By: #### D RUGRPD #### [facility] [address] [place] [address] Dr. Dacia Ackerman OXY Negative Normal NEGATIVE [facility] Comment on above: Performed By: #### D RUGRPD #### [facility] [address] [place] [address] Dr. Dacia Ackerman PCP Negative Normal NEGATIVE [facility] Comment on above: Performed By: #### D RUGRPD #### [facility] [address] [place] [address] Dr. Dacia Ackerman PPX Negative Normal NEGATIVE [facility] Comment on above: Performed By: #### D RUGRPD #### [facility] [address] [place] [address] Dr. Dacia Ackerman TCA Negative Normal NEGATIVE [facility] Comment on above: Performed By: #### D RUGRPD #### [facility] [address] [place] [address] Dr. Dacia Ackerman THC Positive Abnormal NEGATIVE [facility] Comment on above: Performed By: #### D RUGRPD #### [facility] [address] [address] [address] Dacia Ackerman ER URINE PROFILEon 3 Bilirubin Ql (U) SMALL Abnormal NEGATIVE [facility] Comment on above: Performed By: #### P REGU, ERUR, UMICRO #### [facility] [address] [address] [address] Dacia Ackerman Clarity (U) CLEAR Normal CLEAR [facility] Comment on above: Performed By: #### P REGU, ERUR, UMICRO #### [facility] [address] [place] [address] Dr. Dacia Ackerman Color (U) YELLOW Normal YELLOW [facility] Comment on above: Performed By: #### P REGU, ERUR, UMICRO #### [facility] [address] [place] [address] Dr. Dacia Ackerman ERUAHCarl A micrscopic examina tion will be performed if indicated. Normal [facility] Comment on above: Performed By: #### P REGU, ERUR, UMICRO #### [facility] [address] [place] [address] Dr. Dacia Ackerman Glucose Ql (U) Negative Normal NEGATIVE [facility] Comment on above: Performed By: #### P REGU, ERUR, UMICRO #### [facility] [address] [place] [address] Dr. Dacia Ackerman Hemoglobin Ql (U) Negative Normal NEGATIVE [facility] Comment on above: Performed By: #### P REGU, ERUR, UMICRO #### [facility] [address] [address] [address] Dacia Ackerman Ketones Ql (U) >=80 Abnormal NEGATIVE [facility] Comment on above: Performed By: #### P REGU, ERUR, UMICRO #### [facility] [address] [place] [address] Dr. Dacia Ackerman LEUKOCYTES TRACE Abnormal NEGATIVE [facility] Comment on above: Performed By: #### P REGU, ERUR, UMICRO #### [facility] [address] [address] [address] Dacia Ackerman Nitrite Ql (U) Negative Normal NEGATIVE [facility] Comment on above: Performed By: #### P REGU, ERUR, UMICRO #### [facility] [address] [place] [address] Dr. Dacia Ackerman pH (U) 7.5 [pH] Normal 5-9 [facility] Comment on above: Performed By: #### P REGU, ERUR, UMICRO #### [facility] [address] [place] [address] Dr. Dacia Ackerman Protein (U) [Mass/Vol] 100 mg/dL Abnormal NEGAT JOAO/ TRACE [facility] Comment on above: Performed By: #### P REGU, ERUR, UMICRO #### [facility] [address] [place] [address] Dr. Dacia Ackerman SPEC GRAVITY 1.020 Normal 1.005-<=1. 025 [facility] Comment on above: Performed By: #### P REGU, ERUR, UMICRO #### [facility] [address] [place] [address] Dr. Daica Ackerman UR MICRO IND INDICATED Normal [facility] Comment on above: Performed By: #### P REGU, ERUR, UMICRO #### [facility] [address] [place] [address] Dr. Dacia Ackerman Urobilinogen Qn (U) 1.0 {Kaykay'U}/dL Normal 0.2 - 1. 0 [facility] Comment on above: Performed By: #### P REGU, ERUR, UMICRO #### [facility] [address] [place] [address] Dr. Dacia Ackerman INFLUENZA A AND B AGon 01-01 INFLUANEGH SEE BELOW Normal [facility] Comment on above: Result Comment: Nega tive for Flu A protein angiten. Infection due to Flu A cannot be ruled out. Flu A angiten in the sample may be below the detection limit of the test. Performed By: #### I NFLUAB #### [facility] [address] [place] [address] Dr. Dacia Ackerman [facility] SEE BELOW Normal [facility] Comment on above: Result Comment: Nega tive for Flu B protein antigen. Infection due to Flu B cannot be ruled out. Flu B antigen in the sample may be below the detection limit of the test. Performed By: #### I NFLUAB #### [facility] [address] [place] [address] Dr. Dacia Ackerman INFLUENZA A AG Negative Normal NEGATIVE SEE COMMENT [facility] Comment on above: Performed By: #### I NFLUAB #### [facility] [address] [place] [address] Dr. Dacia Ackerman INFLUENZA B AG Negative Normal NEGATIVE SEE COMMENT [facility] Comment on above: Performed By: #### I NFLUAB #### [facility] [address] [place] [address] Dr. Dacia Ackerman URon 01-01-2023 , QUAL Negative Normal NEGATIVE [facility] Comment on above: Performed By: #### P REGU, ERUR, UMICRO #### [facility] [address] [place] [address] Dr. Dacia Ackerman URINE MICROSCOPIC ONLYon BACTERIA MODERATE Abnormal NONE SEEN [facility] Comment on above: Performed By: #### P REGU, ERUR, UMICRO #### [facility] [address] [place] [address] Dr. Dacia Ackerman Bacteria identified Cx Nom (U) INDICATED Normal [facility] Comment on above: Performed By: #### P REGU, ERUR, UMICRO #### [facility] [address] [place] [address] Dr. Dacia Ackerman CAST NONE SEEN Normal NONE SEEN [facility] Comment on above: Performed By: #### P REGU, ERUR, UMICRO #### [facility] [address] [place] [address] Dr. Dacia Ackerman Crystals LM Nom (Urine sed) NONE SEEN Normal NONE SEEN [facility] Comment on above: Performed By: #### P REGU, ERUR, UMICRO #### [facility] [address] [address] [address] Dacia Ackerman Epithelial cells LM Ql (Urine sed) MANY Abnormal NONE SEEN /RARE [facility] Comment on above: Performed By: #### P REGU, ERUR, UMICRO #### [facility] [address] [address] [address] Dacia Ackerman MUCOUS SMALL Abnormal NONE SEEN [facility] Comment on above: Performed By: #### P REGU, ERUR, UMICRO #### [facility] [address] [address] [address] Dacia Ackerman RBC NONE SEEN Abnormal 0-2 [facility] Comment on above: Performed By: #### P REGU, ERUR, UMICRO #### [facility] [address] [address] [address] Dacia Ackerman WBC 5-10 Abnormal NONE SEEN [facility] Comment on above: Performed By: #### P REGU, ERUR, UMICRO #### [facility] [address] [address] [address] Dacia Ackerman XR CHEST 1 Von 01-01-2023 XR CHEST 1 V EXAM: XR CHEST 1 V HISTORY: Chest pain. COMPARISON: None. TECHNIQUE: AP erect portable chest radiograph performed. FINDINGS: The trachea is midline. The heart size is normal. The mediastinal and hilar shadows are normal. The lung arevalo are clear. There is no pneumothorax. There is no osseous abnormality. IMPRESSION: Unremarkable AP erect portable chest radiograph. Electronically authenticated by: KIA ARVIZU Date: 2023-01-01 13:00 Normal [facility] Automated erythrocytes count in urine sediment (number/area)Ordered By: Federico Randolph on 12-31-2022 RBC Auto (Urine sed) [#/Area] 0-1 [HPF] 0-4 [facility] Automated leukocytes count i n urine sediment (number/area)Ordered By: Federico Randolph on 12-31-2022 WBC Auto (Urine sed) [#/Area] 20-49 [HPF] 0-4 [facility] Bacteria identified Cx Nom ( U)Ordered By: Federico Randolph on 12-31-2022 Urine culture routine Staphylococcus epidermidis [facility] Bilirubin Test strip Ql (U)O rdered By: Federico Randolph on 12-31-2022 Bilirubin Ql (U) Negative Negative [facility] COVID-19 Antigenon COVID-[address] [facility] Comment on above: Performed By: #### S OFIANEG, COVID-19 MEY, FLU ####[address] [place] [address] [facility] COVID-19 SOFIAOrdered By: Deep Randolph on 12-31-2022 SARS-CoV+SARS-CoV-2 (COVID-19) Ag IA.rapid Ql (Resp) Negative Negative [facility] Casts typing in urine sedime nt by light microscopyOrdered By: Federico Randolph on 12-31-2022 Casts LM Nom (Urine sed) None seen [LPF] None Seen [facility] Color Auto (U)Ordered By: Deep Randolph on 12-31-2022 Color (U) Yellow Yellow [facility] Dipstick and Microscopicon 0 12-31-2022 Appearance (U) Turbid Critically abnormal Clear [facility] Comment on above: Order Comment: Name Collection Type:: Clean-Voided Midstream Performed By: #### A DDONUAPLUS, UHCG, CUU ####[address] [place] [address] [facility] Bacteria,Urine 3+ High None Seen [facility] Comment on above: Order Comment: Name Collection Type:: Clean-Voided Midstream Performed By: #### A DDONUAPLUS, UHCG, CUU ####[address] [place] [address] [facility] Bilirubin,Urine Negative Normal Negative [facility] Comment on above: Order Comment: Name Collection Type:: Clean-Voided Midstream Performed By: #### A DDONUAPLUS, UHCG, CUU ####[address] [place] [address] [facility] Color (U) Yellow Normal Yellow [facility] Comment on above: Order Comment: Name Collection Type:: Clean-Voided Midstream Performed By: #### A DDONUAPLUS, UHCG, CUU ####[address] [address] [facility] Glucose Ql (U) Normal Normal Normal [facility] Comment on above: Order Comment: Name Collection Type:: Clean-Voided Midstream Performed By: #### A DDONUAPLUS, UHCG, CUU ####[address] [address] [facility] Hyaline Casts,Urine None Seen Normal 0-8 [facility] Comment on above: Order Comment: Name Collection Type:: Clean-Voided Midstream Performed By: #### A DDONUAPLUS, UHCG, CUU ####[address] [address] [facility] Ketones Ql (U) 3+ High Negative [facility] Comment on above: Order Comment: Name Collection Type:: Clean-Voided Midstream Performed By: #### A DDONUAPLUS, UHCG, CUU ####[address] [address] [facility] Leukocyte esterase Test strip Ql (U) 2+ High Negative [facility] Comment on above: Order Comment: Name Collection Type:: Clean-Voided Midstream Performed By: #### A DDONUAPLUS, UHCG, CUU ####[address] [address] [facility] Nitrite,Urine Negative Normal Negative [facility] Comment on above: Order Comment: Name Collection Type:: Clean-Voided Midstream Performed By: #### A DDONUAPLUS, UHCG, CUU ####[address] [address] [facility] Occult Blood,Urine Negative Normal Negative [facility] Comment on above: Order Comment: Name Collection Type:: Clean-Voided Midstream Performed By: #### A DDONUAPLUS, UHCG, CUU ####[address] [place] [address] [facility] Other Casts,Urine None Seen Normal None Seen [facility] Comment on above: Order Comment: Name Collection Type:: Clean-Voided Midstream Performed By: #### A DDONUAPLUS, UHCG, CUU ####[address] [address] [facility] pH (U) [pH] Normal 5.0-9.0 [facility] Comment on above: Order Comment: Name Collection Type:: Clean-Voided Midstream Performed By: #### A DDONUAPLUS, UHCG, CUU ####[id number] [facility] Protein (U) [Mass/Vol] 100 mg/dL High Negative [facility] Comment on above: Order Comment: Name Collection Type:: Clean-Voided Midstream Performed By: #### A DDONUAPLUS, UHCG, CUU ####[id number] [facility] RBC LM.HPF (Urine sed) [#/Area] 0 /[HPF] Normal 0-4 [facility] Comment on above: Order Comment: Name Collection Type:: Clean-Voided Midstream Performed By: #### A DDONUAPLUS, UHCG, CUU ####[id number] [facility] Specificy Crane,Urine 1.026 Normal 1.001-1.03 0 [facility] Comment on above: Order Comment: Name Collection Type:: Clean-Voided Midstream Performed By: #### A DDONUAPLUS, UHCG, CUU ####[id number] [facility] Squamous Epithelial Cell,Urine Innumerable High 0-2 [facility] Comment on above: Order Comment: Name Collection Type:: Clean-Voided Midstream Performed By: #### A DDONUAPLUS, UHCG, CUU ####[id number] [facility] Urobilinogen,Urine Normal Normal Normal [facility] Comment on above: Order Comment: Name Collection Type:: Clean-Voided Midstream Performed By: #### [facility] [place] ####[id number] [facility] WBC,Urine 20-49 High 0-4 [facility] Comment on above: Order Comment: Name Collection Type:: Clean-Voided Midstream Performed By: #### A SONJA, [facility], CUU ####[place] [id number] [place] [id number] [facility] ECG 12 lead ECGon 12-31-2022 ECG 12 lead ECG Normal [facility] HCG ( test) IA.rapi d Ql (U)Ordered By: Federico Randolph on 12-31-2022 HCG ( test) Ql (U) Negative [facility] HCG,Urineon 12-31-2022 Beta HCG ( test) Ql (U) Negative Normal [facility] Comment on above: Order Comment: Name Collection Type:: Clean-Voided Midstream Result Comment: PERF ORMED BY:[address] [place], [place] [phone] MEDICAL DIRECTORNAY SARKAR M.D. Performed By: #### A LEOVALORIEJAS, [facility], [facility] ####[place] [id number] [facility] Influenza A and B Antigenon 12-31-2022 Influenza A and B Antigen Normal [facility] Comment on above: Performed By: #### S OFIANEG, COVID-19 MEY, FLU ####[place] [id number] [facility] Influenza virus A and B anti gen detection by immunoassayOrdered By: Federico Randolph on 12-31-2022 FLUAV+FLUBV Ag IA Ql (Unsp spec) [facility] Ketones Auto test strip (U) [Mass/Vol]Ordered By: Federico Randolph on 12-31-2022 Ketones (U) [Mass/Vol] 3+ Negative [facility] Nitrite Test strip Ql (U)Ord ered By: Federico Randolph on 12-31-2022 Nitrite Ql (U) Negative Negative [facility] No Panel InformationOrdered By: Federico Randolph on 12-31-2022 None seen [LPF] 0-8 [facility] Protein Auto test strip (U) [Mass/Vol]Ordered By: Federico Randolph on 12-31-2022 Protein (U) [Mass/Vol] 100 mg/dL Negative [facility] Mey Ag Negativeon 12-31-19 23 Mey Ag Negative Negative Normal Negative [facility] Comment on above: Result Comment: This is a duplicate Mey SARS Antigen (JOSE A) result to be used for statistical tracking purpose only.PERFORMED BY:[address] [place], [place] [phone] MEDICAL DIRECTORNAY SARKAR M.D. Performed By: #### S OFIANEG, COVID-19 MEY, FLU ####[facility] [id number] [place] [address] [facility] Specific gravity Auto test s trip (U) [Rel density]Ordered By: Federico Randolph on 12-31-2022 Specific gravity (U) [Rel density] 1.026 1.001-1.03 0 [facility] Squamous epithelial cells de tection in urine sediment by light microscopyOrdered By: Federico Randolph on 12-31-2022 Epithelial cells.squamous LM Ql (Urine sed) Innumerable [HPF] 0-2 [facility] Urine Cultureon 12-31-2022 Bacteria identified Cx Nom (U) Normal [facility] Comment on above: Performed By: #### A DDONUAPLUS, UHCG, CUU ####[place] [id number] [facility] Urine bacteria detection by automated methodOrdered By: Federico Randolph on 12-31-2022 Bacteria Auto Ql (U) 3+ None Seen [facility] Urine clarity by refractomet ry automatedOrdered By: Federico Randolph on 12-31-2022 Clarity Refractometry automated (U) Turbid Clear [facility] Urine glucose measurement by automated test strip (mass/volume)Ordered By: Federico Randolph on 12-31-2022 Glucose Auto test strip (U) [Mass/Vol] Normal mg/dL Normal [facility] Urine hemoglobin detection b y automated test stripOrdered By: Federico Randolph on 12-31-2022 Hemoglobin Auto test strip Ql (U) Negative Negative [facility] Urine leukocyte esterase det ection by automated test stripOrdered By: Federico Randolph on 12-31-2022 Leukocyte esterase Auto test strip Ql (U) 2+ Negative [facility] Urobilinogen Auto test strip (U) [Mass/Vol]Ordered By: Federico Randolph on 12-31-2022 Urobilinogen (U) [Mass/Vol] Normal mg/dL Normal [facility] pH Auto test strip (U)Ordere d By: Federico Randolph on 12-31-2022 pH (U) [pH] 5.0-9.0 [facility] Amphetamine Screen Ql (U)Ord ered By: Corey Newberry on 11-09-2022 Amphetamines Ql (U) Negative Negative [facility] Barbiturates [Presence] in U rineOrdered By: Corey Newberry on 11-09-2022 Barbiturates Ql (U) Negative Negative [facility] Basophils Auto (Bld) [#/Vol] Ordered By: Corey Newberry on 11-09-2022 Basophils (Bld) [#/Vol] 0.0 10*3/uL 0.0-0.1 [facility] Basophils/100 WBC Auto (Bld) Ordered By: Corey Newberry on 11-09-2022 Basophils/100 WBC (Bld) 0.3 % . [facility] Benzodiazepines [Presence] i n UrineOrdered By: Corey Newberry on 11-09-2022 Benzodiazepines Ql (U) Negative Negative [facility] Bilirubin Test strip Ql (U)O rdered By: Corey Newberry on 11-09-2022 Bilirubin Ql (U) Negative Negative [facility] Body fluid albumin measureme nt (mass/volume)Ordered By: Corey Newberry on 11-09-2022 Albumin (Body fld) [Mass/Vol] 4.2 g/dL 3.2-5.5 [facility] Cannabinoids [Presence] in U rine by Screen methodOrdered By: Corey Newberry on 11-09-2022 Cannabinoids Screen Ql (U) Positive Negative [facility] Color Auto (U)Ordered By: Nazia abysanjana Rohith on 11-09-2022 Color (U) Yellow Yellow [facility] Complete Blood Count Auto Di ffon 11-09-2022 Basophils (Bld) [#/Vol] 0.0 10*3/uL Normal 0.0-0.1 [facility] Comment on above: Result Comment: PERF ORMED BY:[address] [place], [place] [phone] MEDICAL DIRECTORNAY SARKAR M.D. Performed By: #### C MP, CBC ####[place] [id number] [facility] Basophils/100 WBC (Bld) 0.3 % Normal . [facility] Comment on above: Performed By: #### C MP, CBC ####[address] [address] [facility] Eosinophils (Bld) [#/Vol] 0.1 10*3/uL Normal 0.0-0.7 [facility] Comment on above: Performed By: #### C MP, CBC ####[place] [id number] [facility] Eosinophils/100 WBC (Bld) 0.8 % Normal . [facility] Comment on above: Performed By: #### C MP, CBC ####[place] [id number] [facility] Erythrocyte distribution width (RBC) [Ratio] 13.8 % Normal 11.9-15.3 [facility] Comment on above: Performed By: #### C MP, CBC ####[place] [id number] [facility] Hematocrit (Bld) [Volume fraction] 41.0 % Normal 36.0-46.0 [facility] Comment on above: Performed By: #### C MP, CBC ####[address] [address] [facility] Hemoglobin (Bld) [Mass/Vol] 13.4 g/dL Normal 12.0-16.0 [facility] Comment on above: Performed By: #### C MP, CBC ####[address] [address] [facility] Lymphocytes (Bld) [#/Vol] 1.4 10*3/uL Normal 1.20-4.8 [facility] Comment on above: Performed By: #### C MP, CBC ####[place] [id number] [facility] Lymphocytes/100 WBC (Bld) 12.1 % Normal . [facility] Comment on above: Performed By: #### C MP, CBC ####[place] [id number] [facility] MCH (RBC) [Entitic mass] 28.1 pg Normal 25.0-35.0 [facility] Comment on above: Performed By: #### C MP, CBC ####[place] [id number] [facility] MCV (RBC) [Entitic vol] 85.7 fL Normal 78-102 [facility] Comment on above: Performed By: #### C MP, CBC ####[place] [id number] [facility] Mean Corpuscular HGB Conc 32.8 g/dL Normal 31.0-37.0 [facility] Comment on above: Performed By: #### C MP, CBC ####[place] [id number] [facility] Monocytes (Bld) [#/Vol] 0.5 10*3/uL Normal 0.1-1.00 [facility] Comment on above: Performed By: #### C MP, CBC ####[place] [id number] [facility] Monocytes/100 WBC (Bld) 16.08 % Normal 0.00-20.00 [facility] Comment on above: Performed By: #### C MP, CBC ####[facility] [place] [address] [place] Monocytes/100 WBC (Bld) 4.7 % Normal . [facility] Comment on above: Performed By: #### C MP, CBC ####[facility] [place] [address] [facility] Neutrophils (Bld) [#/Vol] 9.6 10*3/uL High 1.2-7.7 [facility] Comment on above: Performed By: #### C MP, CBC ####[address] [address] [facility] Neutrophils/100 WBC (Bld) 82.1 % Normal . [facility] Comment on above: Performed By: #### C MP, CBC ####[address] [address] [facility] NRBC% 0.1 /100{WBC} Normal 0-0.5 [facility] Comment on above: Performed By: #### C MP, CBC ####[address] [address] [facility] Platelet mean volume (Bld) [Entitic vol] 8.5 fL Normal 6.3-10.7 [facility] Comment on above: Performed By: #### C MP, CBC ####[address] [address] [facility] Platelets (Bld) [#/Vol] 274 10*3/uL Normal 150-450 [facility] Comment on above: Performed By: #### C MP, CBC ####[address] [address] [facility] RBC (Bld) [#/Vol] 4.78 10*6/uL Normal 4.10-5.10 [facility] Comment on above: Performed By: #### C MP, CBC ####[address] [address] [facility] WBC (Bld) [#/Vol] 11.7 10*3/uL Normal 4.5-13.5 [facility] Comment on above: Performed By: #### C MP, CBC ####[facility] [place] [address] [facility] Comprehensive Metabolic Pane tushar 11-09-2022 Albumin [Mass/Vol] 4.2 g/dL Normal 3.2-5.5 [facility] Comment on above: Performed By: #### C MP, CBC ####[place] [id number] [place] [address] [facility] Albumin/Globulin [Mass ratio] 1.8 {ratio} Normal [facility] Comment on above: Performed By: #### C MP, CBC ####[place] [id number] [place] [address] [facility] ALP [Catalytic activity/Vol] 59 U/L Normal 32-92 [facility] Comment on above: Performed By: #### C MP, CBC ####[address] [address] [facility] ALT [Catalytic activity/Vol] 67 U/L High 10-60 [facility] Comment on above: Performed By: #### C MP, CBC ####[place] [address] [place] [address] [facility] Anion gap [Moles/Vol] 19.7 mmol/L High 6.0-15.0 [facility] Comment on above: Performed By: #### C MP, CBC ####[address] [address] [facility] AST [Catalytic activity/Vol] 48 U/L High 10-42 [facility] Comment on above: Performed By: #### C MP, CBC ####[address] [address] [facility] Bilirubin [Mass/Vol] 0.5 mg/dL Normal 0.3-1.2 [facility] Comment on above: Performed By: #### C MP, CBC ####[facility] [place] [address] [facility] Calcium [Mass/Vol] 9.6 mg/dL Normal 8.2-10.2 [facility] Comment on above: Performed By: #### C MP, CBC ####[facility] [place] [address] [facility] Chloride [Moles/Vol] 98 mmol/L Normal 95-114 [facility] Comment on above: Performed By: #### C MP, CBC ####[address] [address] [facility] CO2 [Moles/Vol] 22.7 mmol/L Normal 22.0-30.0 [facility] Comment on above: Performed By: #### C MP, CBC ####[address] [address] [facility] Creatinine [Mass/Vol] 0.76 mg/dL Normal 0.44-1.03 [facility] Comment on above: Performed By: #### C MP, CBC ####[address] [address] [facility] Creatinine Clr Calc Pharmacy 118.86 [facility] Comment on above: Result Comment: PERF ORMED BY:[address] [place], [place] [phone] MEDICAL DIRECTORNAY SARKAR M.D. Performed By: #### C MP, CBC ####[address] [address] [facility] Estimated GFR ( Mahi > 60 [facility] Comment on above: Result Comment: GFR estimated reference range: According to KDOQI guidelines, <60 ml/min/1.73m2 is sufficient to diagnose a patient with chronic kidney disease. Performed By: #### C MP, CBC ####[address] [address] [facility] Estimated GFR (Non- Am > 60 [facility] Comment on above: Performed By: #### C MP, CBC ####[address] [address] [facility] Globulin (S) [Mass/Vol] 2.4 g/dL [facility] Comment on above: Performed By: #### C MP, CBC ####[facility] [place] [id number] [facility] Glucose [Mass/Vol] 110 mg/dL High 70-100 [facility] Comment on above: Result Comment: [facility] Glucose Reference Range is dependent on time and content of last meal. Glucose of more than 200 mg/dL in a nonstressed, ambulatory subject supports the diagnosis of Diabetes Mellitus. ADA recommended reference range Performed By: #### C MP, CBC ####[place] [id number] [facility] Potassium [Moles/Vol] 3.4 mmol/L Low 3.5-5.1 [facility] Comment on above: Performed By: #### C MP, CBC ####[address] Protein [Mass/Vol] 6.6 g/dL Normal 6.1-7.9 [facility] Comment on above: Performed By: #### C MP, CBC ####[address] Sodium [Moles/Vol] 137 mmol/L Normal 136-146 [facility] Comment on above: Performed By: #### C MP, CBC ####[place] [id number] [facility] Urea nitrogen [Mass/Vol] 3 mg/dL Low 9-23 [facility] Comment on above: Performed By: #### C MP, CBC ####[place] [id number] [facility] Drug Screen,Urineon 12-13-20 22 Amphetamine Screen,Urine Negative Normal Negative [facility] Comment on above: Performed By: #### U A, UHCG, URDS ####[place] [id number] [facility] Barbiturate Screen,Urine Negative Normal Negative [facility] Comment on above: Performed By: #### U A, UHCG, URDS ####[place] [id number] [facility] Benzodiazepines Screen,Urine Negative Normal Negative [facility] Comment on above: Performed By: #### U A, [facility], URDS ####[address] Cannabinoid Screen,Urine Positive High Negative [facility] Comment on above: Result Comment: Thes e are unconfirmed results and should not be used for legal purposes. Drug Cut-Off Concentration: AMPH 1000 ng/mL NIKOLAS 200 ng/mL SHRAVAN 200 ng/mL COCM 300 ng/mL OP 300 ng/mL PCP 25 ng/mL THC 20 ng/mLPERFORMED BY:[address] [place], [place] [phone] MEDICAL DIRECTORNAY SARKAR M.D. Performed By: #### Shreya Camara [facility], URDS ####[address] Cocaine Screen,Urine Negative Normal Negative [facility] Comment on above: Performed By: #### Shreya Camara [facility], URDS ####[address] Opiate Screen,Urine Negative Normal Negative [facility] Comment on above: Performed By: #### U Hoa [facility], URDS ####[address] Phencyclidine Screen,Urine Negative Normal Negative [facility] Comment on above: Performed By: #### U Hoa [facility], URDS ####[address] Eosinophils Auto (Bld) [#/Vo l]Ordered By: Corey Newberry on 11-09-2022 Eosinophils (Bld) [#/Vol] 0.1 10*3/uL 0.0-0.7 [facility] Eosinophils/100 WBC Auto (Bl d)Ordered By: Corey Newberry on 11-09-2022 Eosinophils/100 WBC (Bld) 0.8 % . [facility] Erythrocyte distribution wid th Auto (RBC) [Ratio]Ordered By: Corey Newberry on 11-09-2022 Erythrocyte distribution width (RBC) [Ratio] 13.8 % 11.9-15.3 [facility] Estimated glomerular filtrat ion rate (GFR) non- AmericanOrdered By: Corey Newberry on 11-09-2022 GFR/1.73 sq M.predicted among non-blacks MDRD (S/P/Bld) [Vol rate/Area] > 60 mL/Min [facility] Globulin Calc (S) [Mass/Vol] Ordered By: Corey Newberry on 11-09-2022 Globulin (S) [Mass/Vol] 2.4 g/dL [facility] HCG ( test) IA.rapi d Ql (U)Ordered By: Corey Newberry on 11-09-2022 HCG ( test) Ql (U) Negative [facility] HCG,Urineon 11-09-2022 Beta HCG ( test) Ql (U) Negative Normal [facility] Comment on above: Order Comment: Name Collection Type:: Clean-Voided Midstream Result Comment: PERF ORMED BY:[facility] [place] [address] [place], [place] [phone] MEDICAL DIRECTORNAY SARKAR M.D. Performed By: #### U A, CG, URDS ####[facility] [place] [address] [facility] Hematocrit Auto (Bld) [Volum e fraction]Ordered By: Corey Newberry on 11-09-2022 Hematocrit (Bld) [Volume fraction] 41.0 % 36.0-46.0 [facility] Hemoglobin [Mass/volume] in BloodOrdered By: Corey Newberry on 11-09-2022 Hemoglobin (Bld) [Mass/Vol] 13.4 g/dL 12.0-16.0 [facility] Ketones Auto test strip (U) [Mass/Vol]Ordered By: Corey Newberry on 11-09-2022 Ketones (U) [Mass/Vol] Negative Negative [facility] Leukocytes [#/volume] correc venkata for nucleated erythrocytes in Blood by Automated counOrdered By: Corey Newberry on 11-09-2022 WBC corrected for nucl RBC Auto (Bld) [#/Vol] 11.7 10*3/uL 4.5-13.5 [facility] Lymphocytes Auto (Bld) [#/Vo l]Ordered By: Corey Newberry on 11-09-2022 Lymphocytes (Bld) [#/Vol] 1.4 10*3/uL 1.20-4.8 [facility] Lymphocytes/100 WBC Auto (Bl d)Ordered By: Corey Newberry on 11-09-2022 Lymphocytes/100 WBC (Bld) 12.1 % . [facility] MCH Auto (RBC) [Entitic mass ]Ordered By: Corey Newberry on 11-09-2022 MCH (RBC) [Entitic mass] 28.1 pg 25.0-35.0 [facility] MCHC Auto (RBC) [Mass/Vol]Or dered By: Corey Newberry on 11-09-2022 MCHC (RBC) [Mass/Vol] 32.8 g/dL 31.0-37.0 [facility] MCV Auto (RBC) [Entitic vol] Ordered By: Corey Newberry on 11-09-2022 MCV (RBC) [Entitic vol] 85.7 fL 78-102 [facility] Monocyte distribution width [Entitic volume] in Blood by AutomatedOrdered By: Corey Newberry on 11-09-2022 Monocyte distribution width Auto (Bld) [Entitic vol] 16.08 % 0.00-20.00 [facility] Monocytes Auto (Bld) [#/Vol] Ordered By: Corey Newberry on 11-09-2022 Monocytes (Bld) [#/Vol] 0.5 10*3/uL 0.1-1.00 [facility] Monocytes/100 WBC Auto (Bld) Ordered By: Corey Newberry on 11-09-2022 Monocytes/100 WBC (Bld) 4.7 % . [facility] Neutrophils Auto (Bld) [#/Vo l]Ordered By: Corey Newberry on 11-09-2022 Neutrophils (Bld) [#/Vol] 9.6 10*3/uL 1.2-7.7 [facility] Neutrophils/100 WBC Auto (Bl d)Ordered By: Corey Newberry on 11-09-2022 Neutrophils/100 WBC (Bld) 82.1 % . [facility] Nitrite Test strip Ql (U)Ord ered By: Corey Newberry on 11-09-2022 Nitrite Ql (U) Negative Negative [facility] No Panel InformationOrdered By: Corey Newberry on 11-09-2022 Negative Negative [facility] > 60 mL/Min [facility] 118.86 [facility] Nucleated erythrocytes [Pres ence] in Blood by Automated countOrdered By: Corey Newberry on 11-09-2022 Nucleated RBC Auto Ql (Bld) 0.1 /100{WBC} 0-0.5 [facility] Phencyclidine Screen Ql (U)O rdered By: Corey Newberry on 11-09-2022 Phencyclidine Ql (U) Negative Negative [facility] Platelet mean volume Auto (B ld) [Entitic vol]Ordered By: Corey Newberry on 11-09-2022 Platelet mean volume (Bld) [Entitic vol] 8.5 fL 6.3-10.7 [facility] Platelets Auto (Bld) [#/Vol] Ordered By: Corey Newberry on 11-09-2022 Platelets (Bld) [#/Vol] 274 10*3/uL 150-450 [facility] Protein Auto test strip (U) [Mass/Vol]Ordered By: Corey Newberry on 11-09-2022 Protein (U) [Mass/Vol] Negative Negative [facility] Protein [Mass/volume] in Ser um or PlasmaOrdered By: Corey Newberry on 11-09-2022 Protein [Mass/Vol] 6.6 g/dL 6.1-7.9 [facility] RBC Auto (Bld) [#/Vol]Ordere d By: Corey Newberry on 11-09-2022 RBC (Bld) [#/Vol] 4.78 10*6/uL 4.10-5.10 [facility] Serum or plasma alanine florez otransferase measurement without P-5'-P (enzymatic activiOrdered By: Corey Newberry on 11-09-2022 ALT No additional P-5'-P [Catalytic activity/Vol] 67 U/L 10-60 [facility] Serum or plasma albumin/glob ulin mass ratioOrdered By: Corey Newberry on 11-09-2022 Albumin/Globulin [Mass ratio] 1.8 {ratio} [facility] Serum or plasma alkaline justin sphatase measurement (enzymatic activity/volume)Ordered By: Corey Newberry on 11-09-2022 ALP [Catalytic activity/Vol] 59 U/L 32-92 [facility] Serum or plasma anion gap de terminationOrdered By: Corey Newberry on 11-09-2022 Anion gap [Moles/Vol] 19.7 mmol/L 6.0-15.0 [facility] Serum or plasma aspartate am inotransferase measurement (enzymatic activity/volume)Ordered By: Corey Newberry on 11-09-2022 AST [Catalytic activity/Vol] 48 U/L 10-42 [facility] Serum or plasma calcium tammy urement (mass/volume)Ordered By: Corey Newberry on 11-09-2022 Calcium [Mass/Vol] 9.6 mg/dL 8.2-10.2 [facility] Serum or plasma chloride judy surement (moles/volume)Ordered By: Corey Newberry on 11-09-2022 Chloride [Moles/Vol] 98 mmol/L 95-114 [facility] Serum or plasma creatinine m easurement with calculation of estimated glomerular filtrOrdered By: Corey Newberry on 11-09-2022 Creatinine and Glomerular filtration rate.predicted panel (S/P/Bld) 0.76 mg/dL 0.44-1.03 [facility] Serum or plasma glucose tammy urement (mass/volume)Ordered By: Corey Newberry on 11-09-2022 Glucose [Mass/Vol] 110 mg/dL 70-100 [facility] Serum or plasma potassium me asurement (moles/volume)Ordered By: Corey Newberry on 11-09-2022 Potassium [Moles/Vol] 3.4 mmol/L 3.5-5.1 [facility] Serum or plasma sodium measu rement (moles/volume)Ordered By: Corey Newberry on 11-09-2022 Sodium [Moles/Vol] 137 mmol/L 136-146 [facility] Serum or plasma total biliru bin measurement (mass/volume)Ordered By: Corey Newberry on 11-09-2022 Bilirubin [Mass/Vol] 0.5 mg/dL 0.3-1.2 [facility] Serum or plasma total carbon dioxide measurement (moles/volume)Ordered By: Corey Newberry on 11-09-2022 CO2 [Moles/Vol] 22.7 mmol/L 22.0-30.0 [facility] Serum or plasma urea nitroge n measurement (mass/volume)Ordered By: Corey Newberry on 11-09-2022 Urea nitrogen [Mass/Vol] 3 mg/dL 08-20 [facility] Specific gravity Auto test s trip (U) [Rel density]Ordered By: Corey Newberry on 11-09-2022 Specific gravity (U) [Rel density] 1.009 1.001-1.03 0 [facility] Urinalysison 11-09-2022 Appearance (U) Clear Normal Clear [facility] Comment on above: Order Comment: Name Collection Type:: Clean-Voided Midstream Performed By: #### U A, UHCG, URDS ####[address] Bilirubin,Urine Negative Normal Negative [facility] Comment on above: Order Comment: Name Collection Type:: Clean-Voided Midstream Performed By: #### U A, UHCG, URDS ####[address] Color (U) Yellow Normal Yellow [facility] Comment on above: Order Comment: Name Collection Type:: Clean-Voided Midstream Performed By: #### U A, UHCG, URDS ####[place] [id number] [facility] Glucose Ql (U) Normal Normal Normal [facility] Comment on above: Order Comment: Name Collection Type:: Clean-Voided Midstream Performed By: #### U A, UHCG, URDS ####[place] [id number] [facility] Ketones Ql (U) Negative Normal Negative [facility] Comment on above: Order Comment: Name Collection Type:: Clean-Voided Midstream Performed By: #### U A, UHCG, URDS ####[address] Leukocyte esterase Test strip Ql (U) Negative Normal Negative [facility] Comment on above: Order Comment: Name Collection Type:: Clean-Voided Midstream Performed By: #### U A, UHCG, URDS ####[address] [address] [facility] Nitrite,Urine Negative Normal Negative [facility] Comment on above: Order Comment: Name Collection Type:: Clean-Voided Midstream Performed By: #### U A, UHCG, URDS ####[address] [address] [facility] Occult Blood,Urine Negative Normal Negative [facility] Comment on above: Order Comment: Name Collection Type:: Clean-Voided Midstream Performed By: #### U A, UHCG, URDS ####[place] [id number] [facility] pH (U) [pH] Normal 5.0-9.0 [facility] Comment on above: Order Comment: Name Collection Type:: Clean-Voided Midstream Performed By: #### U A, UHCG, URDS ####[place] [id number] [facility] Protein,Urine Negative Normal Negative [facility] Comment on above: Order Comment: Name Collection Type:: Clean-Voided Midstream Performed By: #### U A, UHCG, URDS ####[place] [id number] [facility] Specificy Crane,Urine 1.009 Normal 1.001-1.03 0 [facility] Comment on above: Order Comment: Name Collection Type:: Clean-Voided Midstream Performed By: #### U A, UHCG, URDS ####[place] [id number] [facility] Urobilinogen,Urine Normal Normal Normal [facility] Comment on above: Order Comment: Name Collection Type:: Clean-Voided Midstream Performed By: #### U A, UHCG, URDS ####[place] [id number] [facility] Urine clarity by refractomet ry automatedOrdered By: Corey Newberry on 11-09-2022 Clarity Refractometry automated (U) Clear Clear [facility] Urine cocaine detectionOrder ed By: Corey Newberry on 11-09-2022 Cocaine Ql (U) Negative Negative [facility] Urine glucose measurement by automated test strip (mass/volume)Ordered By: Corey Newberry on 11-09-2022 Glucose Auto test strip (U) [Mass/Vol] Normal mg/dL Normal [facility] Urine hemoglobin detection b y automated test stripOrdered By: Corey Newberry on 11-09-2022 Hemoglobin Auto test strip Ql (U) Negative Negative [facility] Urine leukocyte esterase det ection by automated test stripOrdered By: Corey Newberry on 11-09-2022 Leukocyte esterase Auto test strip Ql (U) Negative Negative [facility] Urobilinogen Auto test strip (U) [Mass/Vol]Ordered By: Corey Newberry on 11-09-2022 Urobilinogen (U) [Mass/Vol] Normal mg/dL Normal [facility] WBC Auto (Bld) [#/Vol]Ordere d By: Corey Newberry on 11-09-2022 WBC (Bld) [#/Vol] 11.7 10*3/uL 4.5-13.5 [facility] pH Auto test strip (U)Ordere d By: Corey Newberry on 11-09-2022 pH (U) [pH] 5.0-9.0 [facility] Albumin [Mass/volume] in Ser um or PlasmaOrdered By: Art Bianchi on 11-07-2022 Albumin [Mass/Vol] 4.6 g/dL 3.2-5.5 [facility] Automated erythrocytes count in urine sediment (number/area)Ordered By: Art Bianchi on 11-07-2022 RBC Auto (Urine sed) [#/Area] 0-1 [HPF] 0-4 [facility] Automated leukocytes count i n urine sediment (number/area)Ordered By: Art Bianchi on 11-07-2022 WBC Auto (Urine sed) [#/Area] 3-4 [HPF] 0-4 [facility] Basophils Auto (Bld) [#/Vol] Ordered By: Art Bianchi on 11-07-2022 Basophils (Bld) [#/Vol] 0.1 10*3/uL 0.0-0.1 [facility] Basophils/100 WBC Auto (Bld) Ordered By: Art Bianchi on 11-07-2022 Basophils/100 WBC (Bld) 1.0 % . [facility] Bilirubin Test strip Ql (U)O rdered By: Art Morenozi on 11-07-2022 Bilirubin Ql (U) Negative Negative [facility] Color Auto (U)Ordered By: Adrian arnulfo Tash on 11-07-2022 Color (U) Yellow Yellow [facility] Complete Blood Count Auto Di ffon 11-07-2022 Basophils (Bld) [#/Vol] 0.1 10*3/uL Normal 0.0-0.1 [facility] Comment on above: Result Comment: PERF ORMED BY:[address] [place], [place] [phone] MEDICAL DIRECTORNAY SARKAR M.D. Performed By: #### L IPASE, CBC, CMP ####[address] Basophils/100 WBC (Bld) 1.0 % Normal . [facility] Comment on above: Performed By: #### L IPASE, CBC, CMP ####[address] Eosinophils (Bld) [#/Vol] 0.1 10*3/uL Normal 0.0-0.7 [facility] Comment on above: Performed By: #### L IPASE, CBC, CMP ####[address] Eosinophils/100 WBC (Bld) 1.2 % Normal . [facility] Comment on above: Performed By: #### L IPASE, CBC, CMP ####[address] Erythrocyte distribution width (RBC) [Ratio] 14.0 % Normal 11.9-15.3 [facility] Comment on above: Performed By: #### L IPASE, CBC, CMP ####[address] Hematocrit (Bld) [Volume fraction] 43.2 % Normal 36.0-46.0 [facility] Comment on above: Performed By: #### L IPASE, CBC, CMP ####[address] Hemoglobin (Bld) [Mass/Vol] 14.8 g/dL Normal 12.0-16.0 [facility] Comment on above: Performed By: #### L IPASE, CBC, CMP ####[address] Lymphocytes (Bld) [#/Vol] 2.1 10*3/uL Normal 1.20-4.8 [facility] Comment on above: Performed By: #### L IPASE, CBC, CMP ####[address] Lymphocytes/100 WBC (Bld) 20.8 % Normal . [facility] Comment on above: Performed By: #### L IPASE, CBC, CMP ####[address] MCH (RBC) [Entitic mass] 28.8 pg Normal 25.0-35.0 [facility] Comment on above: Performed By: #### L IPASE, CBC, CMP ####[address] MCV (RBC) [Entitic vol] 84.1 fL Normal 78-102 [facility] Comment on above: Performed By: #### L IPASE, CBC, CMP ####[address] Mean Corpuscular HGB Conc 34.3 g/dL Normal 31.0-37.0 [facility] Comment on above: Performed By: #### L IPASE, CBC, CMP ####[address] Monocytes (Bld) [#/Vol] 0.8 10*3/uL Normal 0.1-1.00 [facility] Comment on above: Performed By: #### L IPASE, CBC, CMP ####[place] [id number] [facility] Monocytes/100 WBC (Bld) 17.07 % Normal 0.00-20.00 [facility] Comment on above: Performed By: #### L IPASE, CBC, CMP ####[place] [id number] [facility] Monocytes/100 WBC (Bld) 8.1 % Normal . [facility] Comment on above: Performed By: #### L IPASE, CBC, CMP ####[address] Neutrophils (Bld) [#/Vol] 7.1 10*3/uL Normal 1.2-7.7 [facility] Comment on above: Performed By: #### L IPASE, CBC, CMP ####[place] [id number] [facility] Neutrophils/100 WBC (Bld) 68.9 % Normal . [facility] Comment on above: Performed By: #### L IPASE, CBC, CMP ####[place] [id number] [facility] NRBC% 0.3 /100{WBC} Normal 0-0.5 [facility] Comment on above: Performed By: #### L IPASE, CBC, CMP ####[place] [id number] [facility] Platelet mean volume (Bld) [Entitic vol] 8.4 fL Normal 6.3-10.7 [facility] Comment on above: Performed By: #### L IPASE, CBC, CMP ####[address] [address] [facility] Platelets (Bld) [#/Vol] 308 10*3/uL Normal 150-450 [facility] Comment on above: Performed By: #### L IPASE, CBC, CMP ####[place] [id number] [facility] RBC (Bld) [#/Vol] 5.14 10*6/uL High 4.10-5.10 [facility] Comment on above: Performed By: #### L IPASE, CBC, CMP ####[address] WBC (Bld) [#/Vol] 10.3 10*3/uL Normal 4.5-13.5 [facility] Comment on above: Performed By: #### L IPASE, CBC, CMP ####[address] Comprehensive Metabolic Pane utshar 11-07-2022 Albumin [Mass/Vol] 4.6 g/dL Normal 3.2-5.5 [facility] Comment on above: Performed By: #### L IPASE, CBC, CMP ####[address] Albumin/Globulin [Mass ratio] 1.7 {ratio} Normal [facility] Comment on above: Performed By: #### L IPASE, CBC, CMP ####[address] ALP [Catalytic activity/Vol] 60 U/L Normal 32-92 [facility] Comment on above: Performed By: #### L IPASE, CBC, CMP ####[address] ALT [Catalytic activity/Vol] 24 U/L Normal 10-60 [facility] Comment on above: Performed By: #### L IPASE, CBC, CMP ####[address] Anion gap [Moles/Vol] 12.2 mmol/L Normal 6.0-15.0 [facility] Comment on above: Performed By: #### L IPASE, CBC, CMP ####[address] AST [Catalytic activity/Vol] 25 U/L Normal 10-42 [facility] Comment on above: Performed By: #### L IPASE, CBC, CMP ####[address] Bilirubin [Mass/Vol] 0.8 mg/dL Normal 0.3-1.2 [facility] Comment on above: Performed By: #### L IPASE, CBC, CMP ####[place] [id number] [facility] Calcium [Mass/Vol] 9.6 mg/dL Normal 8.2-10.2 [facility] Comment on above: Performed By: #### L IPASE, CBC, CMP ####[place] [id number] [facility] Chloride [Moles/Vol] 98 mmol/L Normal 95-114 [facility] Comment on above: Performed By: #### L IPASE, CBC, CMP ####[address] CO2 [Moles/Vol] 25.0 mmol/L Normal 22.0-30.0 [facility] Comment on above: Performed By: #### L IPASE, CBC, CMP ####[address] Creatinine [Mass/Vol] 0.84 mg/dL Normal 0.44-1.03 [facility] Comment on above: Performed By: #### L IPASE, CBC, CMP ####[place] [id number] [facility] Creatinine Clr Calc Pharmacy 104.35 [facility] Comment on above: Performed By: #### L IPASE, CBC, CMP ####[place] [id number] [facility] Estimated GFR ( Mahi > 60 [facility] Comment on above: Result Comment: GFR estimated reference range: According to KDOQI guidelines, <60 ml/min/1.73m2 is sufficient to diagnose a patient with chronic kidney disease. Performed By: #### L IPASE, CBC, CMP ####[place] [id number] [facility] Estimated GFR (Non- Am > 60 [facility] Comment on above: Performed By: #### L IPASE, CBC, CMP ####[facility] [place] [address] [facility] Globulin (S) [Mass/Vol] 2.7 g/dL Normal [facility] Comment on above: Performed By: #### L IPASE, CBC, CMP ####[place] [id number] [facility] Glucose [Mass/Vol] 106 mg/dL High 70-100 [facility] Comment on above: Result Comment: [facility] Glucose Reference Range is dependent on time and content of last meal. Glucose of more than 200 mg/dL in a nonstressed, ambulatory subject supports the diagnosis of Diabetes Mellitus. ADA recommended reference range Performed By: #### L IPASE, CBC, CMP ####[place] [id number] [facility] Potassium [Moles/Vol] 3.2 mmol/L Low 3.5-5.1 [facility] Comment on above: Performed By: #### L IPASE, CBC, CMP ####[place] [id number] [facility] Protein [Mass/Vol] 7.3 g/dL Normal 6.1-7.9 [facility] Comment on above: Performed By: #### L IPASE, CBC, CMP ####[place] [id number] [facility] Sodium [Moles/Vol] 132 mmol/L Low 136-146 [facility] Comment on above: Performed By: #### L IPASE, CBC, CMP ####[place] [id number] [facility] Urea nitrogen [Mass/Vol] 6 mg/dL Low 9-23 [facility] Comment on above: Performed By: #### L IPASE, CBC, CMP ####[place] [id number] [facility] Dipstick and Microscopicon 1 01-08-2022 Appearance (U) Clear Normal Clear [facility] Comment on above: Order Comment: Name Collection Type:: Clean-Voided Midstream Performed By: #### [facility] ####[address] [address] [facility] Bacteria,Urine None Seen Normal None Seen [facility] Comment on above: Order Comment: Name Collection Type:: Clean-Voided Midstream Performed By: #### A DDONUAPLUS, UHCG ####[address] [address] [facility] Bilirubin,Urine Negative Normal Negative [facility] Comment on above: Order Comment: Name Collection Type:: Clean-Voided Midstream Performed By: #### A DDONUAPLUS, UHCG ####[address] [address] [facility] Color (U) Yellow Normal Yellow [facility] Comment on above: Order Comment: Name Collection Type:: Clean-Voided Midstream Performed By: #### A DDONUAPLUS, UHCG ####[address] [address] [facility] Glucose Ql (U) Normal Normal Normal [facility] Comment on above: Order Comment: Name Collection Type:: Clean-Voided Midstream Performed By: #### A DDONUAPLUS, UHCG ####[address] [address] [facility] Hyaline Casts,Urine 0-8 Normal 0-8 [facility] Comment on above: Order Comment: Name Collection Type:: Clean-Voided Midstream Performed By: #### A DDONUAPLUS, UHCG ####[address] [address] [facility] Ketones Ql (U) 1+ High Negative [facility] Comment on above: Order Comment: Name Collection Type:: Clean-Voided Midstream Performed By: #### A DDONUAPLUS, UHCG ####[address] [address] [facility] Leukocyte esterase Test strip Ql (U) Negative Normal Negative [facility] Comment on above: Order Comment: Name Collection Type:: Clean-Voided Midstream Performed By: #### A DDONUAPLUS, UHCG ####[address] [address] [facility] Nitrite,Urine Negative Normal Negative [facility] Comment on above: Order Comment: Name Collection Type:: Clean-Voided Midstream Performed By: #### A SONJA UHCG ####[address] [address] [facility] Occult Blood,Urine Negative Normal Negative [facility] Comment on above: Order Comment: Name Collection Type:: Clean-Voided Midstream Performed By: #### A DDLIZETTEUAPLUS CG ####[address] [address] [facility] pH (U) 8.5 [pH] Normal 5.0-9.0 [facility] Comment on above: Order Comment: Name Collection Type:: Clean-Voided Midstream Performed By: #### A SONJA CG ####[address] [address] [facility] Protein,Urine Trace High Negative [facility] Comment on above: Order Comment: Name Collection Type:: Clean-Voided Midstream Performed By: #### A SONJA CG ####[address] [address] [facility] RBC LM.HPF (Urine sed) [#/Area] 0 /[HPF] Normal 0-4 [facility] Comment on above: Order Comment: Name Collection Type:: Clean-Voided Midstream Performed By: #### A SONJA CG ####[address] [address] [facility] Specificy Crane,Urine 1.014 Normal 1.001-1.03 0 [facility] Comment on above: Order Comment: Name Collection Type:: Clean-Voided Midstream Performed By: #### A DDONUAPLUS UHCG ####[address] [address] [facility] Squamous Epithelial Cell,Urine 5-9 High 0-2 [facility] Comment on above: Order Comment: Name Collection Type:: Clean-Voided Midstream Performed By: #### A DDONUAPLUS, CG ####[facility] Urobilinogen,Urine Normal Normal Normal [facility] Comment on above: Order Comment: Name Collection Type:: Clean-Voided Midstream Performed By: #### A DDONUAPLUS, CG ####[facility] WBC,Urine 3-4 Normal 0-4 [facility] Comment on above: Order Comment: Name Collection Type:: Clean-Voided Midstream Performed By: #### A DDONUAPLUS, [facility] ####[place] [id number] [address] Eosinophils Auto (Bld) [#/Vo l]Ordered By: Art Bianchi on 11-07-2022 Eosinophils (Bld) [#/Vol] 0.1 10*3/uL 0.0-0.7 [facility] Eosinophils/100 WBC Auto (Bl d)Ordered By: Art Bianchi on 11-07-2022 Eosinophils/100 WBC (Bld) 1.2 % . [facility] Erythrocyte distribution wid th Auto (RBC) [Ratio]Ordered By: Art Bianchi on 11-07-2022 Erythrocyte distribution width (RBC) [Ratio] 14.0 % 11.9-15.3 [facility] Estimated glomerular filtrat ion rate (GFR) non- AmericanOrdered By: Art Bianchi on 11-07-2022 GFR/1.73 sq M.predicted among non-blacks MDRD (S/P/Bld) [Vol rate/Area] > 60 mL/Min [facility] Globulin Calc (S) [Mass/Vol] Ordered By: Art Bianchi on 11-07-2022 Globulin (S) [Mass/Vol] 2.7 g/dL [facility] HCG ( test) IA.rapi d Ql (U)Ordered By: Art Bianchi on 11-07-2022 HCG ( test) Ql (U) Negative [facility] HCG,Urineon 11-07-2022 Beta HCG ( test) Ql (U) Negative Normal [facility] Comment on above: Order Comment: Name Collection Type:: Clean-Voided Midstream Result Comment: PERF ORMED BY:[place] [address] [address] [place], [place] [phone] MEDICAL DIRECTORNAY SARKAR M.D. Performed By: #### A DDONUAPLUS, CG ####[address] [address] [facility] Hematocrit Auto (Bld) [Volum e fraction]Ordered By: Art Bianchi on 11-07-2022 Hematocrit (Bld) [Volume fraction] 43.2 % 36.0-46.0 [facility] Hemoglobin [Mass/volume] in BloodOrdered By: Art Bianchi on 11-07-2022 Hemoglobin (Bld) [Mass/Vol] 14.8 g/dL 12.0-16.0 [facility] Ketones Auto test strip (U) [Mass/Vol]Ordered By: Art Bianchi on 11-07-2022 Ketones (U) [Mass/Vol] 1+ Negative [facility] Leukocytes [#/volume] correc venkata for nucleated erythrocytes in Blood by Automated counOrdered By: Art Bianchi on 11-07-2022 WBC corrected for nucl RBC Auto (Bld) [#/Vol] 10.3 10*3/uL 4.5-13.5 [facility] Lipaseon 11-07-2022 Lipase [Catalytic activity/Vol] 43.0 U/L Normal 22-51 [facility] Comment on above: Result Comment: PERF ORMED BY:[place] [address] [place] [phone] MEDICAL DIRECTORNAY SARKAR M.D. Performed By: #### L IPASE, CBC, CMP ####[facility] [address] [place] [address] [facility] Lymphocytes Auto (Bld) [#/Vo l]Ordered By: Art Bianchi on 11-07-2022 Lymphocytes (Bld) [#/Vol] 2.1 10*3/uL 1.20-4.8 [facility] Lymphocytes/100 WBC Auto (Bl d)Ordered By: Art Bianchi on 11-07-2022 Lymphocytes/100 WBC (Bld) 20.8 % . [facility] MCH Auto (RBC) [Entitic mass ]Ordered By: Art Bianchi on 11-07-2022 MCH (RBC) [Entitic mass] 28.8 pg 25.0-35.0 [facility] MCHC Auto (RBC) [Mass/Vol]Or dered By: Art Bianchi on 11-07-2022 MCHC (RBC) [Mass/Vol] 34.3 g/dL 31.0-37.0 [facility] MCV Auto (RBC) [Entitic vol] Ordered By: Art Bianchi on 11-07-2022 MCV (RBC) [Entitic vol] 84.1 fL 78-102 [facility] Monocyte distribution width [Entitic volume] in Blood by AutomatedOrdered By: Art Bianchi on 11-07-2022 Monocyte distribution width Auto (Bld) [Entitic vol] 17.07 % 0.00-20.00 [facility] Monocytes Auto (Bld) [#/Vol] Ordered By: Art Bianchi on 11-07-2022 Monocytes (Bld) [#/Vol] 0.8 10*3/uL 0.1-1.00 [facility] Monocytes/100 WBC Auto (Bld) Ordered By: Art Bianchi on 11-07-2022 Monocytes/100 WBC (Bld) 8.1 % . [facility] Neutrophils Auto (Bld) [#/Vo l]Ordered By: Art Bianchi on 11-07-2022 Neutrophils (Bld) [#/Vol] 7.1 10*3/uL 1.2-7.7 [facility] Neutrophils/100 WBC Auto (Bl d)Ordered By: Art Bianchi on 11-07-2022 Neutrophils/100 WBC (Bld) 68.9 % . [facility] Nitrite Test strip Ql (U)Ord ered By: Art Bianchi on 11-07-2022 Nitrite Ql (U) Negative Negative [facility] No Panel InformationOrdered By: Art Bianchi on 11-07-2022 0-8 [LPF] 0-8 [facility] > 60 mL/Min [facility] 43.0 U/L 22-51 [facility] 104.35 [facility] Nucleated erythrocytes [Pres ence] in Blood by Automated countOrdered By: Art Bianchi on 11-07-2022 Nucleated RBC Auto Ql (Bld) 0.3 /100{WBC} 0-0.5 [facility] Platelet mean volume Auto (B ld) [Entitic vol]Ordered By: Art Bianchi on 11-07-2022 Platelet mean volume (Bld) [Entitic vol] 8.4 fL 6.3-10.7 [facility] Platelets Auto (Bld) [#/Vol] Ordered By: Art Bianchi on 11-07-2022 Platelets (Bld) [#/Vol] 308 10*3/uL 150-450 [facility] Protein Auto test strip (U) [Mass/Vol]Ordered By: Art Bianchi on 11-07-2022 Protein (U) [Mass/Vol] Trace mg/dL Negative F [facility] Protein [Mass/volume] in Ser um or PlasmaOrdered By: Art Bianchi on 11-07-2022 Protein [Mass/Vol] 7.3 g/dL 6.1-7.9 [facility] RBC Auto (Bld) [#/Vol]Ordere d By: Art Bianchi on 11-07-2022 RBC (Bld) [#/Vol] 5.14 10*6/uL 4.10-5.10 [facility] Serum or plasma alanine florez otransferase measurement without P-5'-P (enzymatic activiOrdered By: Art Bianchi on 11-07-2022 ALT No additional P-5'-P [Catalytic activity/Vol] 24 U/L 10-60 [facility] Serum or plasma albumin/glob ulin mass ratioOrdered By: Art Bianchi on 11-07-2022 Albumin/Globulin [Mass ratio] 1.7 {ratio} [facility] Serum or plasma alkaline justin sphatase measurement (enzymatic activity/volume)Ordered By: Art Bianchi on 11-07-2022 ALP [Catalytic activity/Vol] 60 U/L 32-92 [facility] Serum or plasma anion gap de terminationOrdered By: Art Bianchi on 11-07-2022 Anion gap [Moles/Vol] 12.2 mmol/L 6.0-15.0 [facility] Serum or plasma aspartate am inotransferase measurement (enzymatic activity/volume)Ordered By: Art Bianchi on 11-07-2022 AST [Catalytic activity/Vol] 25 U/L 10-42 [facility] Serum or plasma calcium tammy urement (mass/volume)Ordered By: Art Bianchi on 11-07-2022 Calcium [Mass/Vol] 9.6 mg/dL 8.2-10.2 [facility] Serum or plasma chloride judy surement (moles/volume)Ordered By: Art Bianchi on 11-07-2022 Chloride [Moles/Vol] 98 mmol/L 95-114 [facility] Serum or plasma creatinine m easurement with calculation of estimated glomerular filtrOrdered By: Art Bianchi on 11-07-2022 Creatinine and Glomerular filtration rate.predicted panel (S/P/Bld) 0.84 mg/dL 0.44-1.03 [facility] Serum or plasma glucose tammy urement (mass/volume)Ordered By: Art Bianchi on 11-07-2022 Glucose [Mass/Vol] 106 mg/dL 70-100 [facility] Serum or plasma potassium me asurement (moles/volume)Ordered By: Art Bianchi on 11-07-2022 Potassium [Moles/Vol] 3.2 mmol/L 3.5-5.1 [facility] Serum or plasma sodium measu rement (moles/volume)Ordered By: Art Bianchi on 11-07-2022 Sodium [Moles/Vol] 132 mmol/L 136-146 [facility] Serum or plasma total biliru bin measurement (mass/volume)Ordered By: Art Bianchi on 11-07-2022 Bilirubin [Mass/Vol] 0.8 mg/dL 0.3-1.2 [facility] Serum or plasma total carbon dioxide measurement (moles/volume)Ordered By: Art Bianchi on 11-07-2022 CO2 [Moles/Vol] 25.0 mmol/L 22.0-30.0 [facility] Serum or plasma urea nitroge n measurement (mass/volume)Ordered By: Art Bianchi on 11-07-2022 Urea nitrogen [Mass/Vol] 6 mg/dL 08-20 [facility] Specific gravity Auto test s trip (U) [Rel density]Ordered By: Art Bianchi on 11-07-2022 Specific gravity (U) [Rel density] 1.014 1.001-1.03 0 [facility] Squamous epithelial cells de tection in urine sediment by light microscopyOrdered By: Art Bianchi on 11-07-2022 Epithelial cells.squamous LM Ql (Urine sed) 5-9 [HPF] 0-2 [facility] Urine bacteria detection by automated methodOrdered By: Art Bianchi on 11-07-2022 Bacteria Auto Ql (U) None seen None Seen [facility] Urine clarity by refractomet ry automatedOrdered By: Art Bianchi on 11-07-2022 Clarity Refractometry automated (U) Clear Clear [facility] Urine glucose measurement by automated test strip (mass/volume)Ordered By: Art Bianchi on 11-07-2022 Glucose Auto test strip (U) [Mass/Vol] Normal mg/dL Normal [facility] Urine hemoglobin detection b y automated test stripOrdered By: Art Bianchi on 11-07-2022 Hemoglobin Auto test strip Ql (U) Negative Negative [facility] Urine leukocyte esterase det ection by automated test stripOrdered By: Art Bianchi on 11-07-2022 Leukocyte esterase Auto test strip Ql (U) Negative Negative [facility] Urobilinogen Auto test strip (U) [Mass/Vol]Ordered By: Art Bianchi on 11-07-2022 Urobilinogen (U) [Mass/Vol] Normal mg/dL Normal [facility] WBC Auto (Bld) [#/Vol]Ordere d By: Art Bianchi on 11-07-2022 WBC (Bld) [#/Vol] 10.3 10*3/uL 4.5-13.5 [facility] pH Auto test strip (U)Ordere d By: Art Bianchi on 11-07-2022 pH (U) 8.5 [pH] 5.0-9.0 [facility] Urine culture routineOrdered By: Colten Fyr on 11-04-2022 Bacteria identified Cx Nom (U) 2 Days [facility] Albumin [Mass/volume] in Ser um or PlasmaOrdered By: Colten Fry on 11-02-2022 Albumin [Mass/Vol] 4.8 g/dL Normal 3.2-5.5 [facility] Comment on above: Performed By: #### C JOSE DAVID, CMP ####[address] Amphetamine Screen Ql (U)Ord ered By: Colten Fry on 11-02-2022 Amphetamines Ql (U) Negative Negative [facility] Automated basophil %Ordered By: Colten Fry on 11-02-2022 Basophils/100 WBC (Bld) 0.5 % Normal . [facility] Comment on above: Performed By: #### C JOSE DAVID, CMP ####[address] Automated basophil countOrde red By: Colten Fry on 11-02-2022 Basophils (Bld) [#/Vol] 0.1 10*3/uL Normal 0.0-0.1 [facility] Comment on above: Result Comment: PERF ORMED BY:[address] [place], [place] [phone] MEDICAL DIRECTORNAY SARKAR M.D. Performed By: #### C JOSE DAVID, CMP ####[address] Automated blood monocyte cou ntOrdered By: Colten Fry on 11-02-2022 Monocytes (Bld) [#/Vol] 1.0 10*3/uL Normal 0.1-1.00 [facility] Comment on above: Performed By: #### C BC, CMP ####[place] [id number] [address] Automated eosinophil %Ordere d By: Colten Fry on 11-02-2022 Eosinophils/100 WBC (Bld) 2.1 % Normal . [facility] Comment on above: Performed By: #### C JOSE DAVID, CMP ####[address] Automated eosinophil countOr dered By: Colten Fry on 11-02-2022 Eosinophils (Bld) [#/Vol] 0.3 10*3/uL Normal 0.0-0.7 [facility] Comment on above: Performed By: #### C JOSE DAVID, CMP ####[address] Automated erythrocytes count in urine sediment (number/area)Ordered By: Colten Fry on 11-02-2022 RBC Auto (Urine sed) [#/Area] 20-49 [HPF] 0-4 [facility] Automated leukocytes count i n urine sediment (number/area)Ordered By: Colten Fry on 11-02-2022 WBC Auto (Urine sed) [#/Area] 5-9 [HPF] 0-4 [facility] Automated monocyte %Ordered By: Colten Fry on 11-02-2022 Monocytes/100 WBC (Bld) 8.5 % Normal . [facility] Comment on above: Performed By: #### C JOSE DAVID, CMP ####[address] Automated neutrophil %Ordere d By: Colten Fry on 11-02-2022 Neutrophils/100 WBC (Bld) 69.3 % Normal . [facility] Comment on above: Performed By: #### C JOSE DAVID, CMP ####[address] Barbiturates [Presence] in U rineOrdered By: Colten Fry on 11-02-2022 Barbiturates Ql (U) Negative Negative [facility] Benzodiazepines [Presence] i n UrineOrdered By: Colten Fry on 11-02-2022 Benzodiazepines Ql (U) Negative Negative [facility] Bilirubin Test strip Ql (U)O rdered By: Colten Fry on 11-02-2022 Bilirubin Ql (U) Negative Negative [facility] Cannabinoids [Presence] in U rine by Screen methodOrdered By: Colten Fry on 12-06-2022 Cannabinoids Screen Ql (U) Positive Negative [facility] Color Auto (U)Ordered By: Vida Fry on 11-02-2022 Color (U) Yellow Yellow [facility] Complete Blood Count Auto Di ffon 11-02-2022 Mean Corpuscular HGB Conc 34.0 g/dL Normal 31.0-37.0 [facility] Comment on above: Performed By: #### C BC, CMP ####[place] [id number] [facility] NRBC% 0.1 /100{WBC} Normal 0-0.5 [facility] Comment on above: Performed By: #### C BC, CMP ####[place] [id number] [facility] Comprehensive Metabolic Pane tushar 11-02-2022 ALT [Catalytic activity/Vol] 20 U/L Normal 10-60 [facility] Comment on above: Performed By: #### C BC, CMP ####[place] [id number] [facility] Creatinine [Mass/Vol] 0.88 mg/dL Normal 0.44-1.03 [facility] Comment on above: Performed By: #### C BC, CMP ####[place] [id number] [facility] Creatinine Clr Calc Pharmacy 100.26 [facility] Comment on above: Result Comment: PERF ORMED BY:[address] [place], [place] [phone] MEDICAL TASHI SARKAR M.D. Performed By: #### C BC, CMP ####[place] [id number] [facility] Estimated GFR ( Mahi > 60 [facility] Comment on above: Result Comment: GFR estimated reference range: According to KDOQI guidelines, <60 ml/min/1.73m2 is sufficient to diagnose a patient with chronic kidney disease. Performed By: #### C BC, CMP ####[place] [id number] [facility] Estimated GFR (Non- Am > 60 [facility] Comment on above: Performed By: #### C BC, CMP ####[address] [address] [facility] Dipstick and Microscopicon 1 01-03-2022 Appearance (U) Cloudy Critically abnormal Clear [facility] Comment on above: Order Comment: Name Collection Type:: Clean-Voided Midstream Performed By: #### A DDONUAPLUS, CUU, URDS, UHCG ####[address] [address] [facility] Bacteria,Urine None Seen Normal None Seen [facility] Comment on above: Order Comment: Name Collection Type:: Clean-Voided Midstream Performed By: #### A DDONUAPLUS, CUU, URDS, UHCG ####[address] [address] [facility] Bilirubin,Urine Negative Normal Negative [facility] Comment on above: Order Comment: Name Collection Type:: Clean-Voided Midstream Performed By: #### A DDONUAPLUS, CUU, URDS, UHCG ####[address] [address] [facility] Color (U) Yellow Normal Yellow [facility] Comment on above: Order Comment: Name Collection Type:: Clean-Voided Midstream Performed By: #### A DDONUAPLUS, CUU, URDS, UHCG ####[address] [address] [facility] Glucose Ql (U) Normal Normal Normal [facility] Comment on above: Order Comment: Name Collection Type:: Clean-Voided Midstream Performed By: #### A DDONUAPLUS, CUU, URDS, UHCG ####[address] [address] [place] Hyaline Casts,Urine 9-19 High 0-8 [facility] Comment on above: Order Comment: Name Collection Type:: Clean-Voided Midstream Performed By: #### A DDONUAPLUS, CUU, URDS, UHCG ####[address] [place] [address] [facility] Ketones Ql (U) 3+ High Negative [facility] Comment on above: Order Comment: Name Collection Type:: Clean-Voided Midstream Performed By: #### A DDONUAPLUS, CUU, URDS, UHCG ####[address] Leukocyte esterase Test strip Ql (U) 2+ High Negative [facility] Comment on above: Order Comment: Name Collection Type:: Clean-Voided Midstream Performed By: #### A DDONUAPLUS, CUU, URDS, UHCG ####[address] Nitrite,Urine Negative Normal Negative [facility] Comment on above: Order Comment: Name Collection Type:: Clean-Voided Midstream Performed By: #### A DDONUAPLUS, CUU, URDS, UHCG ####[address] Occult Blood,Urine 3+ High Negative [facility] Comment on above: Order Comment: Name Collection Type:: Clean-Voided Midstream Performed By: #### A DDONUAPLUS, CUU, URDS, UHCG ####[place] [id number] [facility] pH (U) 7.0 [pH] Normal 5.0-9.0 [facility] Comment on above: Order Comment: Name Collection Type:: Clean-Voided Midstream Performed By: #### A DDONUAPLUS, CUU, URDS, UHCG ####[place] [id number] [facility] Protein (U) [Mass/Vol] 30 mg/dL High Negative [facility] Comment on above: Order Comment: Name Collection Type:: Clean-Voided Midstream Performed By: #### A DDONUAPLUS, CUU, URDS, UHCG ####[place] [id number] [facility] RBC,Urine 20-49 High 0-4 [facility] Comment on above: Order Comment: Name Collection Type:: Clean-Voided Midstream Performed By: #### A DDONUAPLUS, CUU, URDS, UHCG ####[address] Specificy Crane,Urine 1.025 Normal 1.001-1.03 0 [facility] Comment on above: Order Comment: Name Collection Type:: Clean-Voided Midstream Performed By: #### A DDONUAPLUS, CUU, URDS, UHCG ####[address] [address] [facility] Squamous Epithelial Cell,Urine 10-19 High 0-2 [facility] Comment on above: Order Comment: Name Collection Type:: Clean-Voided Midstream Performed By: #### A DDONUAPLUS, CUU, URDS, UHCG ####[address] Urobilinogen,Urine Normal Normal Normal [facility] Comment on above: Order Comment: Name Collection Type:: Clean-Voided Midstream Performed By: #### A DDONUAPLUS, CUU, URDS, UHCG ####[place] [id number] [facility] WBC,Urine 5-9 High 0-4 [facility] Comment on above: Order Comment: Name Collection Type:: Clean-Voided Midstream Performed By: #### A DDONUAPLUS, CUU, URDS, UHCG ####[address] Drug Screen,Urineon 11-02-20 22 Amphetamine Screen,Urine Negative Normal Negative [facility] Comment on above: Performed By: #### A DDONUAPLUS, CUU, URDS, UHCG ####[address] Barbiturate Screen,Urine Negative Normal Negative [facility] Comment on above: Performed By: #### A DDONUAPLUS, CUU, URDS, UHCG ####[address] Benzodiazepines Screen,Urine Negative Normal Negative [facility] Comment on above: Performed By: #### A DDONUAPLUS, CUU, URDS, UHCG ####[address] Cannabinoid Screen,Urine Positive High Negative [facility] Comment on above: Result Comment: Thes e are unconfirmed results and should not be used for legal purposes. Drug Cut-Off Concentration: AMPH 1000 ng/mL NIKOLAS 200 ng/mL SHRAVAN 200 ng/mL COCM 300 ng/mL OP 300 ng/mL PCP 25 ng/mL THC 20 ng/mLPERFORMED BY:[address] [place], [place] [phone] MEDICAL DIRECTORNAY SARKAR M.D. Performed By: #### A DDONUAPLUS, CUU, URDS, UHCG ####[address] Cocaine Screen,Urine Negative Normal Negative [facility] Comment on above: Performed By: #### A DDONUAPLUS, CUU, URDS, UHCG ####[address] Opiate Screen,Urine Negative Normal Negative [facility] Comment on above: Performed By: #### A DDONUAPLUS, CUU, URDS, UHCG ####[address] Phencyclidine Screen,Urine Negative Normal Negative [facility] Comment on above: Performed By: #### A DDONUAPLUS, CUU, URDS, UHCG ####[address] Erythrocyte distribution wid th [Ratio] by Automated countOrdered By: Colten Fry on 11-02-2022 Erythrocyte distribution width (RBC) [Ratio] 13.7 % Normal 11.9-15.3 [facility] Comment on above: Performed By: #### C BC, CMP ####[address] [address] [facility] Erythrocytes [#/volume] in B lood by Automated countOrdered By: Colten Fry on 11-02-2022 RBC (Bld) [#/Vol] 5.43 10*6/uL High 4.10-5.10 [facility] Comment on above: Performed By: #### C BC, CMP ####[place] [id number] [facility] Estimated glomerular filtrat ion rate (GFR) non- AmericanOrdered By: Colten Fry on 11-02-2022 GFR/1.73 sq M.predicted among non-blacks MDRD (S/P/Bld) [Vol rate/Area] > 60 mL/Min [facility] HCG ( test) IA.rapi d Ql (U)Ordered By: Colten Fry on 11-02-2022 HCG ( test) Ql (U) Negative [facility] HCG,Urineon 11-02-2022 Beta HCG ( test) Ql (U) Negative Normal [facility] Comment on above: Order Comment: Name Collection Type:: Clean-Voided Midstream Result Comment: PERF ORMED BY:[address] [place], [place] [phone] MEDICAL DIRECTORNAY SARKAR M.D. Performed By: #### A DDONUAPLUS, CUU, URDS, UHCG ####[place] [id number] [facility] Hematocrit [Volume Fraction] of Blood by Automated countOrdered By: Colten Fry on 11-02-2022 Hematocrit (Bld) [Volume fraction] 45.3 % Normal 36.0-46.0 [facility] Comment on above: Performed By: #### C BC, CMP ####[place] [id number] [facility] Hemoglobin [Mass/volume] in BloodOrdered By: Colten Fry on 11-02-2022 Hemoglobin (Bld) [Mass/Vol] 15.4 g/dL Normal 12.0-16.0 [facility] Comment on above: Performed By: #### C BC, CMP ####[address] Ketones Auto test strip (U) [Mass/Vol]Ordered By: Colten Fry on 11-02-2022 Ketones (U) [Mass/Vol] 3+ Negative [facility] Leukocytes [#/volume] correc venkata for nucleated erythrocytes in Blood by Automated counOrdered By: Colten Fry on 11-02-2022 WBC corrected for nucl RBC Auto (Bld) [#/Vol] 11.7 10*3/uL 4.5-13.5 [facility] Leukocytes [#/volume] in Blo od by Automated countOrdered By: Colten Fry on 11-02-2022 WBC (Bld) [#/Vol] 11.7 10*3/uL Normal 4.5-13.5 [facility] Comment on above: Performed By: #### C JOSE DAVID, CMP ####[address] Lymphocytes [#/volume] in Bl ood by Automated countOrdered By: Colten Fry on 11-02-2022 Lymphocytes (Bld) [#/Vol] 2.3 10*3/uL Normal 1.20-4.8 [facility] Comment on above: Performed By: #### C JOSE DAVID, CMP ####[address] Lymphocytes/100 leukocytes i n Blood by Automated countOrdered By: Colten Fry on 11-02-2022 Lymphocytes/100 WBC (Bld) 19.6 % Normal . [facility] Comment on above: Performed By: #### C JOSE DAVID, CMP ####[address] MCH [Entitic mass] by Automa venkata countOrdered By: Colten Fry on 11-02-2022 MCH (RBC) [Entitic mass] 28.4 pg Normal 25.0-35.0 [facility] Comment on above: Performed By: #### C JOSE DAVID, CMP ####[place] [id number] [facility] MCHC Auto (RBC) [Mass/Vol]Or dered By: Colten Fry on 11-02-2022 MCHC (RBC) [Mass/Vol] 34.0 g/dL 31.0-37.0 [facility] MCV [Entitic volume] by Auto mated countOrdered By: Colten Fry on 11-02-2022 MCV (RBC) [Entitic vol] 83.3 fL Normal 78-102 [facility] Comment on above: Performed By: #### C BC, CMP ####[place] [id number] [place] [id number] [facility] Magnesiumon 11-02-2022 Magnesium [Mass/Vol] 2.6 mg/dL Normal 1.6-2.6 [facility] Comment on above: Result Comment: PERF ORMED BY:[address] [place], [place] [phone] MEDICAL DIRECTORNAY SARKAR M.D. Performed By: #### M G ####[place] [id number] [facility] Neutrophils [#/volume] in Bl ood by Automated countOrdered By: Colten Fry on 11-02-2022 Neutrophils (Bld) [#/Vol] 8.1 10*3/uL High 1.2-7.7 [facility] Comment on above: Performed By: #### C BC, CMP ####[place] [id number] [facility] Nitrite Test strip Ql (U)Ord ered By: Colten Fry on 11-02-2022 Nitrite Ql (U) Negative Negative [facility] No Panel InformationOrdered By: Colten Fry on 11-02-2022 9-19 [LPF] 0-8 [facility] Negative Negative [facility] > 60 mL/Min [facility] 100.26 [facility] No Panel InformationOrdered By: Robert Henley on 11-02-2022 2.6 mg/dL 1.6-2.6 [facility] Nucleated erythrocytes [Pres ence] in Blood by Automated countOrdered By: Colten Fry on 11-02-2022 Nucleated RBC Auto Ql (Bld) 0.1 /100{WBC} 0-0.5 [facility] Phencyclidine Screen Ql (U)O rdered By: Colten Fry on 11-02-2022 Phencyclidine Ql (U) Negative Negative [facility] Platelet mean volume [Entiti c volume] in Blood by Automated countOrdered By: Colten Fry on 11-02-2022 Platelet mean volume (Bld) [Entitic vol] 7.9 fL Normal 6.3-10.7 [facility] Comment on above: Performed By: #### C JOSE DAVID, CMP ####[address] Platelets [#/volume] in Bloo d by Automated countOrdered By: Colten Fry on 11-02-2022 Platelets (Bld) [#/Vol] 292 10*3/uL Normal 150-450 [facility] Comment on above: Performed By: #### C JOSE DAVID, CMP ####[address] Protein Auto test strip (U) [Mass/Vol]Ordered By: Coletn Fry on 11-02-2022 Protein (U) [Mass/Vol] 30 mg/dL Negative [facility] Protein [Mass/volume] in Ser um or PlasmaOrdered By: Colten Fry on 11-02-2022 Protein [Mass/Vol] 7.9 g/dL Normal 6.1-7.9 [facility] Comment on above: Performed By: #### C JOSE DAVID, CMP ####[address] Serum globulin measurement b y calculation (mass/volume)Ordered By: Colten Fry on 11-02-2022 Globulin (S) [Mass/Vol] 3.1 g/dL Normal [facility] Comment on above: Performed By: #### C JOSE DAVID, CMP ####[address] Serum or plasma alanine florez otransferase measurement without P-5'-P (enzymatic activiOrdered By: Colten Fry on 11-02-2022 ALT No additional P-5'-P [Catalytic activity/Vol] 20 U/L 10-60 [facility] Serum or plasma albumin/glob ulin mass ratioOrdered By: Colten Fry on 11-02-2022 Albumin/Globulin [Mass ratio] 1.5 {ratio} Normal [facility] Comment on above: Performed By: #### C JOSE DAVID, CMP ####[address] Serum or plasma alkaline justin sphatase measurement (enzymatic activity/volume)Ordered By: Colten Fry on 11-02-2022 ALP [Catalytic activity/Vol] 65 U/L Normal 32-92 [facility] Comment on above: Performed By: #### C JOSE DAVID, CMP ####[place] [id number] [address] Serum or plasma anion gap de terminationOrdered By: Colten Fry on 11-02-2022 Anion gap [Moles/Vol] 14.6 mmol/L Normal 6.0-15.0 [facility] Comment on above: Performed By: #### C JOSE DAVID, CMP ####[address] Serum or plasma aspartate am inotransferase measurement (enzymatic activity/volume)Ordered By: Colten Fry on 11-02-2022 AST [Catalytic activity/Vol] 19 U/L Normal 10-42 [facility] Comment on above: Performed By: #### C JOSE DAVID, CMP ####[address] Serum or plasma calcium tammy urement (mass/volume)Ordered By: Colten Fry on 11-02-2022 Calcium [Mass/Vol] 9.6 mg/dL Normal 8.2-10.2 [facility] Comment on above: Performed By: #### C JOSE DAVID, CMP ####[address] Serum or plasma chloride judy surement (moles/volume)Ordered By: Colten Fry on 11-02-2022 Chloride [Moles/Vol] 95 mmol/L Normal 95-114 [facility] Comment on above: Performed By: #### C JOSE DAVID, CMP ####[address] Serum or plasma creatinine m easurement with calculation of estimated glomerular filtrOrdered By: Colten Fry on 11-02-2022 Creatinine and Glomerular filtration rate.predicted panel (S/P/Bld) 0.88 mg/dL 0.44-1.03 [facility] Serum or plasma glucose tammy urement (mass/volume)Ordered By: Colten Fry on 11-02-2022 Glucose [Mass/Vol] 95 mg/dL Normal 70-100 [facility] Comment on above: Result Comment: [facility] Glucose Reference Range is dependent on time and content of last meal. Glucose of more than 200 mg/dL in a nonstressed, ambulatory subject supports the diagnosis of Diabetes Mellitus. ADA recommended reference range Performed By: #### C JOSE DAVID, CMP ####[place] [id number] [address] Serum or plasma potassium me asurement (moles/volume)Ordered By: Colten Fry on 11-02-2022 Potassium [Moles/Vol] 2.9 mmol/L Off scale low 3.5-5.1 [facility] Comment on above: Result Comment: Resu lts called at 0427 on 11/02/22 Performed By: #### C JOSE DAVID, CMP ####[address] Serum or plasma sodium measu rement (moles/volume)Ordered By: Colten Fry on 11-02-2022 Sodium [Moles/Vol] 134 mmol/L Low 136-146 [facility] Comment on above: Performed By: #### C JOSE DAVID, CMP ####[address] Serum or plasma total biliru bin measurement (mass/volume)Ordered By: Colten Fry on 11-02-2022 Bilirubin [Mass/Vol] 1.8 mg/dL High 0.3-1.2 [facility] Comment on above: Result Comment: Samp les from patients who have taken Naproxen have shown spurious elevation in Total Bilirubin levels. A metabolite of Naproxen, O-desmethylnaproxen, has been shown to interfere with the Solomon method for measuring Total Bilirubin. Performed By: #### C BC, CMP ####[place] [id number] [address] Serum or plasma total carbon dioxide measurement (moles/volume)Ordered By: Colten Fry on 11-02-2022 CO2 [Moles/Vol] 27.3 mmol/L Normal 22.0-30.0 [facility] Comment on above: Performed By: #### C JOSE DAVID, CMP ####[address] Serum or plasma urea nitroge n measurement (mass/volume)Ordered By: Colten Fry on 11-02-2022 Urea nitrogen [Mass/Vol] 24 mg/dL High 9- [facility] Comment on above: Performed By: #### C JOSE DAVID, CMP ####[address] Specific gravity Auto test s trip (U) [Rel density]Ordered By: Colten Fry on 11-02-2022 Specific gravity (U) [Rel density] 1.025 1.001-1.03 0 [facility] Squamous epithelial cells de tection in urine sediment by light microscopyOrdered By: Colten Fry on 11-02-2022 Epithelial cells.squamous LM Ql (Urine sed) 10-19 [HPF] 0-2 [facility] Urine Cultureon 11-02-2022 Bacteria identified Cx Nom (U) Normal [facility] Comment on above: Performed By: #### A DDONUAPLUS, CUU, URDS, UHCG ####[address] Urine bacteria detection by automated methodOrdered By: Colten Fry on 11-02-2022 Bacteria Auto Ql (U) None seen None Seen [facility] Urine clarity by refractomet ry automatedOrdered By: Cotlen Fry on 11-02-2022 Clarity Refractometry automated (U) Cloudy Clear [facility] Urine cocaine detectionOrder ed By: Colten Fry on 11-02-2022 Cocaine Ql (U) Negative Negative [facility] Urine culture routineOrdered By: Colten Fry on 11-02-2022 Bacteria identified Cx Nom (U) 2 Days [facility] Urine culture routineOrdered By: Art Bianchi on 11-02-2022 Bacteria identified Cx Nom (U) 2 Days [facility] Urine glucose measurement by automated test strip (mass/volume)Ordered By: Colten Fry on 11-02-2022 Glucose Auto test strip (U) [Mass/Vol] Normal mg/dL Normal [facility] Urine hemoglobin detection b y automated test stripOrdered By: Colten Fry on 11-02-2022 Hemoglobin Auto test strip Ql (U) 3+ Negative [facility] Urine leukocyte esterase det ection by automated test stripOrdered By: Colten Fry on 11-02-2022 Leukocyte esterase Auto test strip Ql (U) 2+ Negative [facility] Urobilinogen Auto test strip (U) [Mass/Vol]Ordered By: Colten Fry on 11-02-2022 Urobilinogen (U) [Mass/Vol] Normal mg/dL Normal [facility] pH Auto test strip (U)Ordere d By: Colten Fry on 11-02-2022 pH (U) 7.0 [pH] 5.0-9.0 [facility] Albumin [Mass/volume] in Ser um or PlasmaOrdered By: Art Bianchi on 10-31-2022 Albumin [Mass/Vol] 5.1 g/dL 3.2-5.5 [facility] Automated erythrocytes count in urine sediment (number/area)Ordered By: Art Bianchi on 10-31-2022 RBC Auto (Urine sed) [#/Area] Innumerable [HPF] 0-4 [facility] Automated leukocytes count i n urine sediment (number/area)Ordered By: Art Bianchi on 10-31-2022 WBC Auto (Urine sed) [#/Area] 10-19 [HPF] 0-4 [facility] Basophils Auto (Bld) [#/Vol] Ordered By: Art Bianchi on 10-31-2022 Basophils (Bld) [#/Vol] 0.0 10*3/uL 0.0-0.1 [facility] Basophils/100 WBC Auto (Bld) Ordered By: Art Bianchi on 10-31-2022 Basophils/100 WBC (Bld) 0.3 % . [facility] Bilirubin Test strip Ql (U)O rdered By: Art Bianchi on 10-31-2022 Bilirubin Ql (U) Negative Negative [facility] Color Auto (U)Ordered By: Adrian arnulfo Bianchi on 10-31-2022 Color (U) Red Yellow [facility] Complete Blood Count Auto Di ffon 10-31-2022 Basophils (Bld) [#/Vol] 0.0 10*3/uL Normal 0.0-0.1 [facility] Comment on above: Result Comment: PERF ORMED BY:[address] [place], [place] [id number] MEDICAL DIRECTORNAY SARKAR M.D. Performed By: #### C MP, LIPASE, CBC ####[address] Basophils/100 WBC (Bld) 0.3 % Normal . [facility] Comment on above: Performed By: #### C MP, LIPASE, CBC ####[address] Eosinophils (Bld) [#/Vol] 0.1 10*3/uL Normal 0.0-0.7 [facility] Comment on above: Performed By: #### C MP, LIPASE, CBC ####[address] Eosinophils/100 WBC (Bld) 1.0 % Normal . [facility] Comment on above: Performed By: #### C MP, LIPASE, CBC ####[address] Erythrocyte distribution width (RBC) [Ratio] 14.0 % Normal 11.9-15.3 [facility] Comment on above: Performed By: #### C MP, LIPASE, CBC ####[address] Hematocrit (Bld) [Volume fraction] 45.0 % Normal 36.0-46.0 [facility] Comment on above: Performed By: #### C MP, LIPASE, CBC ####[address] Hemoglobin (Bld) [Mass/Vol] 15.2 g/dL Normal 12.0-16.0 [facility] Comment on above: Performed By: #### C MP, LIPASE, CBC ####[address] Lymphocytes (Bld) [#/Vol] 2.2 10*3/uL Normal 1.20-4.8 [facility] Comment on above: Performed By: #### C MP, LIPASE, CBC ####[address] Lymphocytes/100 WBC (Bld) 15.5 % Normal . [facility] Comment on above: Performed By: #### C MP, LIPASE, CBC ####[address] MCH (RBC) [Entitic mass] 28.6 pg Normal 25.0-35.0 [facility] Comment on above: Performed By: #### C MP, LIPASE, CBC ####[address] MCV (RBC) [Entitic vol] 85.0 fL Normal 78-102 [facility] Comment on above: Performed By: #### C MP, LIPASE, CBC ####[address] Mean Corpuscular HGB Conc 33.7 g/dL Normal 31.0-37.0 [facility] Comment on above: Performed By: #### C MP, LIPASE, CBC ####[address] Monocytes (Bld) [#/Vol] 1.3 10*3/uL High 0.1-1.00 [facility] Comment on above: Performed By: #### C MP, LIPASE, CBC ####[address] Monocytes/100 WBC (Bld) 14.69 % Normal 0.00-20.00 [facility] Comment on above: Performed By: #### C MP, LIPASE, CBC ####[address] [address] [facility] Monocytes/100 WBC (Bld) 9.1 % Normal . [facility] Comment on above: Performed By: #### C MP, LIPASE, CBC ####[address] [address] [facility] Neutrophils (Bld) [#/Vol] 10.4 10*3/uL High 1.2-7.7 [facility] Comment on above: Performed By: #### C MP, LIPASE, CBC ####[place] [id number] [facility] Neutrophils/100 WBC (Bld) 74.1 % Normal . [facility] Comment on above: Performed By: #### C MP, LIPASE, CBC ####[place] [id number] [facility] NRBC% 0.1 /100{WBC} Normal 0-0.5 [facility] Comment on above: Performed By: #### C MP, LIPASE, CBC ####[address] Platelet mean volume (Bld) [Entitic vol] 8.3 fL Normal 6.3-10.7 [facility] Comment on above: Performed By: #### C MP, LIPASE, CBC ####[address] [address] [facility] Platelets (Bld) [#/Vol] 337 10*3/uL Normal 150-450 [facility] Comment on above: Performed By: #### C MP, LIPASE, CBC ####[address] [address] [facility] RBC (Bld) [#/Vol] 5.29 10*6/uL High 4.10-5.10 [facility] Comment on above: Performed By: #### C MP, LIPASE, CBC ####[address] [address] [facility] WBC (Bld) [#/Vol] 14.0 10*3/uL High 4.5-13.5 [facility] Comment on above: Performed By: #### C MP, LIPASE, CBC ####[place] [id number] [place] [address] [facility] Comprehensive Metabolic Pane tushar 10-31-2022 Albumin [Mass/Vol] 5.1 g/dL Normal 3.2-5.5 [facility] Comment on above: Performed By: #### C MP, LIPASE, CBC ####[address] [address] [facility] Albumin/Globulin [Mass ratio] 1.6 {ratio} Normal [facility] Comment on above: Performed By: #### C MP, LIPASE, CBC ####[place] [id number] [place] [address] [facility] ALP [Catalytic activity/Vol] 62 U/L Normal 32-92 [facility] Comment on above: Performed By: #### C MP, LIPASE, CBC ####[address] [address] [facility] ALT [Catalytic activity/Vol] 25 U/L Normal 10-60 [facility] Comment on above: Performed By: #### C MP, LIPASE, CBC ####[address] [address] [facility] Anion gap [Moles/Vol] 16.8 mmol/L High 6.0-15.0 [facility] Comment on above: Performed By: #### C MP, LIPASE, CBC ####[address] [address] [facility] AST [Catalytic activity/Vol] 25 U/L Normal 10-42 [facility] Comment on above: Performed By: #### C MP, LIPASE, CBC ####[address] [address] [facility] Bilirubin [Mass/Vol] 1.7 mg/dL High 0.3-1.2 [facility] Comment on above: Result Comment: Samp les from patients who have taken Naproxen have shown spurious elevation in Total Bilirubin levels. A metabolite of Naproxen, O-desmethylnaproxen, has been shown to interfere with the Jendrassik-Grof method for measuring Total Bilirubin. Performed By: #### C MP, LIPASE, CBC ####[address] Calcium [Mass/Vol] 9.9 mg/dL Normal 8.2-10.2 [facility] Comment on above: Performed By: #### C MP, LIPASE, CBC ####[place] [id number] [facility] Chloride [Moles/Vol] 96 mmol/L Normal 95-114 [facility] Comment on above: Performed By: #### C MP, LIPASE, CBC ####[address] CO2 [Moles/Vol] 22.4 mmol/L Normal 22.0-30.0 [facility] Comment on above: Performed By: #### C MP, LIPASE, CBC ####[address] Creatinine [Mass/Vol] 0.89 mg/dL Normal 0.44-1.03 [facility] Comment on above: Performed By: #### C MP, LIPASE, CBC ####[address] Creatinine Clr Calc Pharmacy 102.97 [facility] Comment on above: Performed By: #### C MP, LIPASE, CBC ####[address] Estimated GFR ( Mahi > 60 [facility] Comment on above: Result Comment: GFR estimated reference range: According to KDOQI guidelines, <60 ml/min/1.73m2 is sufficient to diagnose a patient with chronic kidney disease. Performed By: #### C MP, LIPASE, CBC ####[address] Estimated GFR (Non- Am > 60 [facility] Comment on above: Performed By: #### C MP, LIPASE, CBC ####[address] Globulin (S) [Mass/Vol] 3.1 g/dL Normal [facility] Comment on above: Performed By: #### C MP, LIPASE, CBC ####[address] Glucose [Mass/Vol] 120 mg/dL High 70-100 [facility] Comment on above: Result Comment: [place] Glucose Reference Range is dependent on time and content of last meal. Glucose of more than 200 mg/dL in a nonstressed, ambulatory subject supports the diagnosis of Diabetes Mellitus. ADA recommended reference range Performed By: #### C MP, LIPASE, CBC ####[address] Potassium [Moles/Vol] 3.2 mmol/L Low 3.5-5.1 [facility] Comment on above: Performed By: #### C MP, LIPASE, CBC ####[address] Protein [Mass/Vol] 8.2 g/dL High 6.1-7.9 [facility] Comment on above: Performed By: #### C MP, LIPASE, CBC ####[address] Sodium [Moles/Vol] 132 mmol/L Low 136-146 [facility] Comment on above: Performed By: #### C MP, LIPASE, CBC ####[place] [id number] [facility] Urea nitrogen [Mass/Vol] 28 mg/dL High 9-23 [facility] Comment on above: Performed By: #### C MP, LIPASE, CBC ####[place] [id number] [facility] Dipstick and Microscopicon 1 01-01-2022 Appearance (U) Cloudy Critically abnormal Clear [facility] Comment on above: Order Comment: Name Collection Type:: Clean-Voided Midstream Performed By: #### C UU, ADDONUAPLUS, UHCG ####[address] Bacteria,Urine None Seen Normal None Seen [facility] Comment on above: Order Comment: Name Collection Type:: Clean-Voided Midstream Performed By: #### C UU, ADDONUAPLUS, UHCG ####[place] [id number] [facility] Bilirubin,Urine Negative Normal Negative [facility] Comment on above: Order Comment: Name Collection Type:: Clean-Voided Midstream Performed By: #### C UU, ADDONUAPLUS, UHCG ####[place] [id number] [facility] Color (U) Red Critically abnormal Yellow [facility] Comment on above: Order Comment: Name Collection Type:: Clean-Voided Midstream Performed By: #### C UU, ADDONUAPLUS, UHCG ####[address] Glucose Ql (U) Normal Normal Normal [facility] Comment on above: Order Comment: Name Collection Type:: Clean-Voided Midstream Performed By: #### C UU, ADDONUAPLUS, UHCG ####[place] [id number] [facility] Hyaline Casts,Urine 0-8 Normal 0-8 [facility] Comment on above: Order Comment: Name Collection Type:: Clean-Voided Midstream Performed By: #### C UU, ADDONUAPLUS, UHCG ####[place] [id number] [facility] Ketones Ql (U) 3+ High Negative [facility] Comment on above: Order Comment: Name Collection Type:: Clean-Voided Midstream Performed By: #### C UU, ADDONUAPLUS, UHCG ####[place] [id number] [facility] Leukocyte esterase Test strip Ql (U) 2+ High Negative [facility] Comment on above: Order Comment: Name Collection Type:: Clean-Voided Midstream Performed By: #### C UU, ADDONUAPLUS, UHCG ####[address] [address] [place] Nitrite,Urine Negative Normal Negative [facility] Comment on above: Order Comment: Name Collection Type:: Clean-Voided Midstream Performed By: #### C UU, ADDONUAPLUS, UHCG ####[address] [address] [facility] Occult Blood,Urine 3+ High Negative [facility] Comment on above: Order Comment: Name Collection Type:: Clean-Voided Midstream Performed By: #### C UU, ADDONUAPLUS, UHCG ####[address] [address] [facility] pH (U) 6.5 [pH] Normal 5.0-9.0 [facility] Comment on above: Order Comment: Name Collection Type:: Clean-Voided Midstream Performed By: #### C UU, ADDONUAPLUS, UHCG ####[address] [address] [facility] Protein (U) [Mass/Vol] 100 mg/dL High Negative [facility] Comment on above: Order Comment: Name Collection Type:: Clean-Voided Midstream Performed By: #### C UU, ADDONUAPLUS, UHCG ####[address] [address] [facility] RBC,Urine Innumerable High 0-4 [facility] Comment on above: Order Comment: Name Collection Type:: Clean-Voided Midstream Performed By: #### C UU, ADDONUAPLUS, UHCG ####[address] [address] [facility] Specificy Crane,Urine 1.030 Normal 1.001-1.03 0 [facility] Comment on above: Order Comment: Name Collection Type:: Clean-Voided Midstream Performed By: #### C UU, ADDONUAPLUS, UHCG ####[address] [address] [facility] Squamous Epithelial Cell,Urine 10-19 High 0-2 [facility] Comment on above: Order Comment: Name Collection Type:: Clean-Voided Midstream Performed By: #### C UU, ADDONUAPLUS, UHCG ####[place] [id number] Urobilinogen,Urine Normal Normal Normal [facility] Comment on above: Order Comment: Name Collection Type:: Clean-Voided Midstream Performed By: #### C UU, ADDONUAPLUS, UHCG ####[place] [id number] WBC,Urine 10-19 High 0-4 [facility] Comment on above: Order Comment: Name Collection Type:: Clean-Voided Midstream Performed By: #### C UU, ADDONUAPLUS, UHCG ####[address] Eosinophils Auto (Bld) [#/Vo l]Ordered By: Art Bianchi on 10-31-2022 Eosinophils (Bld) [#/Vol] 0.1 10*3/uL 0.0-0.7 [facility] Eosinophils/100 WBC Auto (Bl d)Ordered By: Art Bianchi on 10-31-2022 Eosinophils/100 WBC (Bld) 1.0 % . [facility] Erythrocyte distribution wid th Auto (RBC) [Ratio]Ordered By: Art Bianchi on 10-31-2022 Erythrocyte distribution width (RBC) [Ratio] 14.0 % 11.9-15.3 [facility] Estimated glomerular filtrat ion rate (GFR) non- AmericanOrdered By: Art Bianchi on 10-31-2022 GFR/1.73 sq M.predicted among non-blacks MDRD (S/P/Bld) [Vol rate/Area] > 60 mL/Min [facility] Globulin Calc (S) [Mass/Vol] Ordered By: Art Bianchi on 10-31-2022 Globulin (S) [Mass/Vol] 3.1 g/dL [facility] HCG ( test) IA.rapi d Ql (U)Ordered By: Art Bianchi on 10-31-2022 HCG ( test) Ql (U) Negative [facility] HCG,Urineon 10-31-2022 Beta HCG ( test) Ql (U) Negative Normal [facility] Comment on above: Order Comment: Name Collection Type:: Clean-Voided Midstream Result Comment: PERF ORMED BY:[address] [place], [place] [id number] MEDICAL DIRECTORNAY SARKAR M.D. Performed By: #### C UU, ADDONUAPLUS, UHCG ####[address] [address] [facility] Hematocrit Auto (Bld) [Volum e fraction]Ordered By: Art Bianchi on 10-31-2022 Hematocrit (Bld) [Volume fraction] 45.0 % 36.0-46.0 [facility] Hemoglobin [Mass/volume] in BloodOrdered By: Art Bianchi on 10-31-2022 Hemoglobin (Bld) [Mass/Vol] 15.2 g/dL 12.0-16.0 [facility] Ketones Auto test strip (U) [Mass/Vol]Ordered By: Art Bianchi on 10-31-2022 Ketones (U) [Mass/Vol] 3+ Negative [facility] Leukocytes [#/volume] correc venkata for nucleated erythrocytes in Blood by Automated counOrdered By: Art Bianchi on 10-31-2022 WBC corrected for nucl RBC Auto (Bld) [#/Vol] 14.0 10*3/uL 4.5-13.5 [facility] Lipaseon 10-31-2022 Lipase [Catalytic activity/Vol] 29.0 U/L Normal 22-51 [facility] Comment on above: Result Comment: PERF ORMED BY:[place] [address] [place] [phone] MEDICAL DIRECTORNAY SARKAR M.D. Performed By: #### C MP, LIPASE, CBC ####[address] [place] [address] [facility] Lymphocytes Auto (Bld) [#/Vo l]Ordered By: Art Bianchi on 10-31-2022 Lymphocytes (Bld) [#/Vol] 2.2 10*3/uL 1.20-4.8 [facility] Lymphocytes/100 WBC Auto (Bl d)Ordered By: Art Bianchi on 10-31-2022 Lymphocytes/100 WBC (Bld) 15.5 % . [facility] MCH Auto (RBC) [Entitic mass ]Ordered By: Art Bianchi on 10-31-2022 MCH (RBC) [Entitic mass] 28.6 pg 25.0-35.0 [facility] MCHC Auto (RBC) [Mass/Vol]Or dered By: Art Bianchi on 10-31-2022 MCHC (RBC) [Mass/Vol] 33.7 g/dL 31.0-37.0 [facility] MCV Auto (RBC) [Entitic vol] Ordered By: Art Bianchi on 10-31-2022 MCV (RBC) [Entitic vol] 85.0 fL 78-102 [facility] Monocyte distribution width [Entitic volume] in Blood by AutomatedOrdered By: Art Bianchi on 10-31-2022 Monocyte distribution width Auto (Bld) [Entitic vol] 14.69 % 0.00-20.00 [facility] Monocytes Auto (Bld) [#/Vol] Ordered By: Art Bianchi on 10-31-2022 Monocytes (Bld) [#/Vol] 1.3 10*3/uL 0.1-1.00 [facility] Monocytes/100 WBC Auto (Bld) Ordered By: Art Bianchi on 10-31-2022 Monocytes/100 WBC (Bld) 9.1 % . [facility] Neutrophils Auto (Bld) [#/Vo l]Ordered By: Art Bianchi on 10-31-2022 Neutrophils (Bld) [#/Vol] 10.4 10*3/uL 1.2-7.7 [facility] Neutrophils/100 WBC Auto (Bl d)Ordered By: Art Bianchi on 10-31-2022 Neutrophils/100 WBC (Bld) 74.1 % . [facility] Nitrite Test strip Ql (U)Ord ered By: Art Bianchi on 10-31-2022 Nitrite Ql (U) Negative Negative [facility] No Panel InformationOrdered By: Art Bianchi on 10-31-2022 0-8 [LPF] 0-8 [facility] > 60 mL/Min [facility] 29.0 U/L 22-51 [facility] 102.97 [facility] Nucleated erythrocytes [Pres ence] in Blood by Automated countOrdered By: Art Bianchi on 10-31-2022 Nucleated RBC Auto Ql (Bld) 0.1 /100{WBC} 0-0.5 [facility] Platelet mean volume Auto (B ld) [Entitic vol]Ordered By: Art Bianchi on 10-31-2022 Platelet mean volume (Bld) [Entitic vol] 8.3 fL 6.3-10.7 [facility] Platelets Auto (Bld) [#/Vol] Ordered By: Art Bianchi on 10-31-2022 Platelets (Bld) [#/Vol] 337 10*3/uL 150-450 [facility] Protein Auto test strip (U) [Mass/Vol]Ordered By: Art Bianchi on 10-31-2022 Protein (U) [Mass/Vol] 100 mg/dL Negative [facility] Protein [Mass/volume] in Ser um or PlasmaOrdered By: Art Bianchi on 10-31-2022 Protein [Mass/Vol] 8.2 g/dL 6.1-7.9 [facility] RBC Auto (Bld) [#/Vol]Ordere d By: Art Bianchi on 10-31-2022 RBC (Bld) [#/Vol] 5.29 10*6/uL 4.10-5.10 [facility] Serum or plasma alanine florez otransferase measurement without P-5'-P (enzymatic activiOrdered By: Art Bianchi on 10-31-2022 ALT No additional P-5'-P [Catalytic activity/Vol] 25 U/L 10-60 [facility] Serum or plasma albumin/glob ulin mass ratioOrdered By: Art Bianchi on 10-31-2022 Albumin/Globulin [Mass ratio] 1.6 {ratio} [facility] Serum or plasma alkaline justin sphatase measurement (enzymatic activity/volume)Ordered By: Art Bianchi on 10-31-2022 ALP [Catalytic activity/Vol] 62 U/L 32-92 [facility] Serum or plasma anion gap de terminationOrdered By: Art Bianchi on 10-31-2022 Anion gap [Moles/Vol] 16.8 mmol/L 6.0-15.0 [facility] Serum or plasma aspartate am inotransferase measurement (enzymatic activity/volume)Ordered By: Art Bianchi on 10-31-2022 AST [Catalytic activity/Vol] 25 U/L 10-42 [facility] Serum or plasma calcium tammy urement (mass/volume)Ordered By: Art Bianchi on 10-31-2022 Calcium [Mass/Vol] 9.9 mg/dL 8.2-10.2 [facility] Serum or plasma chloride judy surement (moles/volume)Ordered By: Art Bianchi on 10-31-2022 Chloride [Moles/Vol] 96 mmol/L 95-114 [facility] Serum or plasma creatinine m easurement with calculation of estimated glomerular filtrOrdered By: Art Bianchi on 10-31-2022 Creatinine and Glomerular filtration rate.predicted panel (S/P/Bld) 0.89 mg/dL 0.44-1.03 [facility] Serum or plasma glucose tammy urement (mass/volume)Ordered By: Art Bianchi on 10-31-2022 Glucose [Mass/Vol] 120 mg/dL 70-100 [facility] Serum or plasma potassium me asurement (moles/volume)Ordered By: Art Bianchi on 10-31-2022 Potassium [Moles/Vol] 3.2 mmol/L 3.5-5.1 [facility] Serum or plasma sodium measu rement (moles/volume)Ordered By: Art Bianchi on 10-31-2022 Sodium [Moles/Vol] 132 mmol/L 136-146 [facility] Serum or plasma total biliru bin measurement (mass/volume)Ordered By: Art Bianchi on 10-31-2022 Bilirubin [Mass/Vol] 1.7 mg/dL 0.3-1.2 [facility] Serum or plasma total carbon dioxide measurement (moles/volume)Ordered By: Art Bianchi on 10-31-2022 CO2 [Moles/Vol] 22.4 mmol/L 22.0-30.0 [facility] Serum or plasma urea nitroge n measurement (mass/volume)Ordered By: Art Bianchi on 10-31-2022 Urea nitrogen [Mass/Vol] 28 mg/dL 9-23 [facility] Specific gravity Auto test s trip (U) [Rel density]Ordered By: Art Bianchi on 10-31-2022 Specific gravity (U) [Rel density] 1.030 1.001-1.03 0 [facility] Squamous epithelial cells de tection in urine sediment by light microscopyOrdered By: Art Bianchi on 10-31-2022 Epithelial cells.squamous LM Ql (Urine sed) 10-19 [HPF] 0-2 [facility] Urine Cultureon 10-31-2022 Bacteria identified Cx Nom (U) Normal [facility] Comment on above: Performed By: #### C UU, TEOFILO, [facility] ####[facility] Urine bacteria detection by automated methodOrdered By: Art Bianchi on 10-31-2022 Bacteria Auto Ql (U) None seen None Seen [facility] Urine clarity by refractomet ry automatedOrdered By: Art Bianchi on 10-31-2022 Clarity Refractometry automated (U) Cloudy Clear [facility] Urine culture routineOrdered By: Art Bianchi on 10-31-2022 Bacteria identified Cx Nom (U) 2 Days [facility] Urine glucose measurement by automated test strip (mass/volume)Ordered By: Art Bianchi on 10-31-2022 Glucose Auto test strip (U) [Mass/Vol] Normal mg/dL Normal [facility] Urine hemoglobin detection b y automated test stripOrdered By: Art Bianchi on 10-31-2022 Hemoglobin Auto test strip Ql (U) 3+ Negative [facility] Urine leukocyte esterase det ection by automated test stripOrdered By: Art Bianchi on 10-31-2022 Leukocyte esterase Auto test strip Ql (U) 2+ Negative [facility] Urobilinogen Auto test strip (U) [Mass/Vol]Ordered By: Art Bianchi on 10-31-2022 Urobilinogen (U) [Mass/Vol] Normal mg/dL Normal [facility] WBC Auto (Bld) [#/Vol]Ordere d By: Art Bianchi on 10-31-2022 WBC (Bld) [#/Vol] 14.0 10*3/uL 4.5-13.5 [facility] pH Auto test strip (U)Ordere d By: Art Bianchi on 10-31-2022 pH (U) 6.5 [pH] 5.0-9.0 [facility] Basic Metabolic Panelon 12 Anion gap [Moles/Vol] 19.9 mmol/L High 6.0-15.0 [facility] Comment on above: Performed By: #### H EPATIC, LIPASE, BMP, CBC ####[address] Calcium [Mass/Vol] 10.4 mg/dL High 8.2-10.2 [facility] Comment on above: Performed By: #### H EPATIC, LIPASE, BMP, CBC ####[address] Chloride [Moles/Vol] 100 mmol/L Normal 95-114 [facility] Comment on above: Performed By: #### H EPATIC, LIPASE, BMP, CBC ####[place] [id number] [facility] CO2 [Moles/Vol] 20.4 mmol/L Low 22.0-30.0 [facility] Comment on above: Performed By: #### H EPATIC, LIPASE, BMP, CBC ####[place] [id number] [facility] Creatinine [Mass/Vol] 0.85 mg/dL Normal 0.44-1.03 [facility] Comment on above: Performed By: #### H EPATIC, LIPASE, BMP, CBC ####[place] [id number] [facility] Creatinine Clr Calc Pharmacy 105.83 [facility] Comment on above: Performed By: #### H BETSY LIPASE, BMP, CBC ####[place] [id number] Estimated GFR ( Mahi > 60 [facility] Comment on above: Result Comment: GFR estimated reference range: According to KDOQI guidelines, <60 ml/min/1.73m2 is sufficient to diagnose a patient with chronic kidney disease. Performed By: #### H EPATIC LIPASE, BMP, CBC ####[address] Estimated GFR (Non- Am > 60 [facility] Comment on above: Performed By: #### H EPAMARISA LIPASE, BMP, CBC ####[address] Glucose [Mass/Vol] 114 mg/dL High 70-100 [facility] Comment on above: Result Comment: [place] Glucose Reference Range is dependent on time and content of last meal. Glucose of more than 200 mg/dL in a nonstressed, ambulatory subject supports the diagnosis of Diabetes Mellitus. ADA recommended reference range Performed By: #### H BETSY LIPASE, BMP, CBC ####[address] Potassium [Moles/Vol] 3.3 mmol/L Low 3.5-5.1 [facility] Comment on above: Performed By: #### H EPAMARISA LIPASE, BMP, CBC ####[address] Sodium [Moles/Vol] 137 mmol/L Normal 136-146 [facility] Comment on above: Performed By: #### H EPAAMRISA LIPASE, BMP, CBC ####[address] Urea nitrogen [Mass/Vol] 21 mg/dL Normal 9-23 [facility] Comment on above: Performed By: #### H EPAMARISA LIPASE, BMP, CBC ####[address] [place] [address] [facility] Basophils Auto (Bld) [#/Vol] Ordered By: Ravi Arguello on 10-29-2022 Basophils (Bld) [#/Vol] 0.0 10*3/uL 0.0-0.1 [facility] Basophils/100 WBC Auto (Bld) Ordered By: Ravi Arguello on 10-29-2022 Basophils/100 WBC (Bld) 0.3 % . [facility] Body fluid albumin measureme nt (mass/volume)Ordered By: Ravi Arguello on 10-29-2022 Albumin (Body fld) [Mass/Vol] 5.2 g/dL 3.2-5.5 [facility] Complete Blood Count Auto Di ffon 10-29-2022 Basophils (Bld) [#/Vol] 0.0 10*3/uL Normal 0.0-0.1 [facility] Comment on above: Result Comment: PERF ORMED BY:[address] [place], [place] [phone] MEDICAL DIRECTORNAY SARKAR M.D. Performed By: #### H EPATIC, LIPASE, BMP, CBC ####[address] Basophils/100 WBC (Bld) 0.3 % Normal . [facility] Comment on above: Performed By: #### H EPATIC, LIPASE, BMP, CBC ####[address] Eosinophils (Bld) [#/Vol] 0.0 10*3/uL Normal 0.0-0.7 [facility] Comment on above: Performed By: #### H EPATIC, LIPASE, BMP, CBC ####[address] Eosinophils/100 WBC (Bld) 0.1 % Normal . [facility] Comment on above: Performed By: #### H EPATIC, LIPASE, BMP, CBC ####[address] Erythrocyte distribution width (RBC) [Ratio] 14.4 % Normal 11.9-15.3 [facility] Comment on above: Performed By: #### H EPATIC, LIPASE, BMP, CBC ####[address] Hematocrit (Bld) [Volume fraction] 42.9 % Normal 36.0-46.0 [facility] Comment on above: Performed By: #### H EPATIC, LIPASE, BMP, CBC ####[address] Hemoglobin (Bld) [Mass/Vol] 14.3 g/dL Normal 12.0-16.0 [facility] Comment on above: Performed By: #### H EPAMARISA, LIPASE, BMP, CBC ####[address] Lymphocytes (Bld) [#/Vol] 1.7 10*3/uL Normal 1.20-4.8 [facility] Comment on above: Performed By: #### H EPATIC, LIPASE, BMP, CBC ####[address] Lymphocytes/100 WBC (Bld) 12.4 % Normal . [facility] Comment on above: Performed By: #### H EPATIC, LIPASE, BMP, CBC ####[address] MCH (RBC) [Entitic mass] 28.4 pg Normal 25.0-35.0 [facility] Comment on above: Performed By: #### H EPATIC, LIPASE, BMP, CBC ####[address] MCV (RBC) [Entitic vol] 85.1 fL Normal 78-102 [facility] Comment on above: Performed By: #### H EPATIC, LIPASE, BMP, CBC ####[address] Mean Corpuscular HGB Conc 33.3 g/dL Normal 31.0-37.0 [facility] Comment on above: Performed By: #### H EPATIC, LIPASE, BMP, CBC ####[address] Monocytes (Bld) [#/Vol] 0.9 10*3/uL Normal 0.1-1.00 [facility] Comment on above: Performed By: #### H EPATIC, LIPASE, BMP, CBC ####[address] Monocytes/100 WBC (Bld) 16.57 % Normal 0.00-20.00 [facility] Comment on above: Performed By: #### H EPATIC, LIPASE, BMP, CBC ####[address] Monocytes/100 WBC (Bld) 6.8 % Normal . [facility] Comment on above: Performed By: #### H EPATIC, LIPASE, BMP, CBC ####[address] Neutrophils (Bld) [#/Vol] 11.0 10*3/uL High 1.2-7.7 [facility] Comment on above: Performed By: #### H EPATIC, LIPASE, BMP, CBC ####[address] Neutrophils/100 WBC (Bld) 80.4 % Normal . [facility] Comment on above: Performed By: #### H EPATIC, LIPASE, BMP, CBC ####[address] NRBC% 0.0 /100{WBC} Normal 0-0.5 [facility] Comment on above: Performed By: #### H EPATIC, LIPASE, BMP, CBC ####[address] Platelet mean volume (Bld) [Entitic vol] 8.4 fL Normal 6.3-10.7 [facility] Comment on above: Performed By: #### H EPATIC, LIPASE, BMP, CBC ####[address] Platelets (Bld) [#/Vol] 355 10*3/uL Normal 150-450 [facility] Comment on above: Performed By: #### H EPATIC, LIPASE, BMP, CBC ####[facility] [id number] RBC (Bld) [#/Vol] 5.04 10*6/uL Normal 4.10-5.10 [facility] Comment on above: Performed By: #### H EPATIC, LIPASE, BMP, CBC ####[facility] WBC (Bld) [#/Vol] 13.7 10*3/uL High 4.5-13.5 [facility] Comment on above: Performed By: #### H EPATIC, LIPASE, BMP, CBC ####[place] [id number] [address] Creatinine and Glomerular fi ltration rate.predicted panel (S/P/Bld)Ordered By: Ravi Arguello on 10-29-2022 Creatinine [Mass/Vol] 0.85 mg/dL 0.44-1.03 [facility] Direct bilirubin measurement Ordered By: Ravi Arguello on 10-29-2022 Bilirubin.direct [Mass/Vol] 0.1 mg/dL 0.0-0.4 [facility] Eosinophils Auto (Bld) [#/Vo l]Ordered By: Ravi Arguello on 10-29-2022 Eosinophils (Bld) [#/Vol] 0.0 10*3/uL 0.0-0.7 [facility] Eosinophils/100 WBC Auto (Bl d)Ordered By: Ravi Arguello on 10-29-2022 Eosinophils/100 WBC (Bld) 0.1 % . [facility] Erythrocyte distribution wid th Auto (RBC) [Ratio]Ordered By: Ravi Arguello on 10-29-2022 Erythrocyte distribution width (RBC) [Ratio] 14.4 % 11.9-15.3 [facility] Estimated glomerular filtrat ion rate (GFR) non- AmericanOrdered By: Ravi Arguello on 10-29-2022 GFR/1.73 sq M.predicted among non-blacks MDRD (S/P/Bld) [Vol rate/Area] > 60 mL/Min [facility] Globulin Calc (S) [Mass/Vol] Ordered By: Ravi Arguello on 10-29-2022 Globulin (S) [Mass/Vol] 3.7 g/dL [facility] Hematocrit Auto (Bld) [Volum e fraction]Ordered By: Ravi Arguello on 10-29-2022 Hematocrit (Bld) [Volume fraction] 42.9 % 36.0-46.0 [facility] Hemoglobin [Mass/volume] in BloodOrdered By: Ravi Arguello on 10-29-2022 Hemoglobin (Bld) [Mass/Vol] 14.3 g/dL 12.0-16.0 [facility] Hepatic Panelon 10-29-2022 Albumin [Mass/Vol] 5.2 g/dL Normal 3.2-5.5 [facility] Comment on above: Performed By: #### H EPATIC, LIPASE, BMP, CBC ####[address] Albumin/Globulin [Mass ratio] 1.4 {ratio} Normal [facility] Comment on above: Performed By: #### H EPATIC, LIPASE, BMP, CBC ####[address] ALP [Catalytic activity/Vol] 68 U/L Normal 32-92 [facility] Comment on above: Performed By: #### H EPATIC, LIPASE, BMP, CBC ####[address] ALT [Catalytic activity/Vol] 24 U/L Normal 10-60 [facility] Comment on above: Performed By: #### H EPATIC, LIPASE, BMP, CBC ####[address] AST [Catalytic activity/Vol] 20 U/L Normal 10-42 [facility] Comment on above: Performed By: #### H EPATIC, LIPASE, BMP, CBC ####[address] Bilirubin [Mass/Vol] 1.2 mg/dL Normal 0.3-1.2 [facility] Comment on above: Performed By: #### H EPATIC, LIPASE, BMP, CBC ####[place] [id number] [address] Bilirubin,Indirect 1.1 mg/dL Normal [facility] Comment on above: Performed By: #### H EPATIC, LIPASE, BMP, CBC ####[address] Bilirubin.indirect [Mass/Vol] 0.1 mg/dL Normal 0.0-0.4 [facility] Comment on above: Performed By: #### H EPATIC, LIPASE, BMP, CBC ####[address] Globulin (S) [Mass/Vol] 3.7 g/dL Normal [facility] Comment on above: Performed By: #### H EPATIC, LIPASE, BMP, CBC ####[address] Protein [Mass/Vol] 8.9 g/dL High 6.1-7.9 [facility] Comment on above: Performed By: #### H EPATIC, LIPASE, BMP, CBC ####[address] Laboratory - Chemistry and C hemistry - challengeOrdered By: Ravi Arguello on 10-29-2022 Lipase [Catalytic activity/Vol] 25.0 U/L [facility] Leukocytes [#/volume] correc venkata for nucleated erythrocytes in Blood by Automated counOrdered By: Ravi Arguello on 10-29-2022 WBC corrected for nucl RBC Auto (Bld) [#/Vol] 13.7 10*3/uL 4.5-13.5 [facility] Lipaseon 10-29-2022 Lipase [Catalytic activity/Vol] 25.0 U/L Normal [facility] Comment on above: Result Comment: PERF ORMED BY:[address] [place], [place] [phone] MEDICAL DIRECTORNAY SARKAR M.D. Performed By: #### H EPATIC, LIPASE, BMP, CBC ####[facility] [id number] [place] [address] [facility] Lymphocytes Auto (Bld) [#/Vo l]Ordered By: Ravi Arguello on 10-29-2022 Lymphocytes (Bld) [#/Vol] 1.7 10*3/uL 1.20-4.8 [facility] Lymphocytes/100 WBC Auto (Bl d)Ordered By: Ravi Arguello on 10-29-2022 Lymphocytes/100 WBC (Bld) 12.4 % . [facility] MCH Auto (RBC) [Entitic mass ]Ordered By: Ravi Arguello on 10-29-2022 MCH (RBC) [Entitic mass] 28.4 pg 25.0-35.0 [facility] MCHC Auto (RBC) [Mass/Vol]Or dered By: Ravi Arguello on 10-29-2022 MCHC (RBC) [Mass/Vol] 33.3 g/dL 31.0-37.0 [facility] MCV Auto (RBC) [Entitic vol] Ordered By: Ravi Arguello on 10-29-2022 MCV (RBC) [Entitic vol] 85.1 fL 78-102 [facility] Monocyte distribution width [Entitic volume] in Blood by AutomatedOrdered By: Ravi Arguello on 10-29-2022 Monocyte distribution width Auto (Bld) [Entitic vol] 16.57 % 0.00-20.00 [facility] Monocytes Auto (Bld) [#/Vol] Ordered By: Ravi Arguello on 10-29-2022 Monocytes (Bld) [#/Vol] 0.9 10*3/uL 0.1-1.00 [facility] Monocytes/100 WBC Auto (Bld) Ordered By: Ravi Arguello on 10-29-2022 Monocytes/100 WBC (Bld) 6.8 % . [facility] Neutrophils Auto (Bld) [#/Vo l]Ordered By: Ravi Arguello on 10-29-2022 Neutrophils (Bld) [#/Vol] 11.0 10*3/uL 1.2-7.7 [facility] Neutrophils/100 WBC Auto (Bl d)Ordered By: Ravi Arguello on 10-29-2022 Neutrophils/100 WBC (Bld) 80.4 % . [facility] No Panel InformationOrdered By: Ravi Arguello on 10-29-2022 Estimated GFR () > 60 mL/Min [facility] Comment on above: GFR estimated refere nce range: According to KDOQI guidelines, <60 ml/min/1.73m2 is sufficient to diagnose a patient with chronic kidney disease. Pharmacy Creatinine Clearance (Chem 105.83 [facility] > 60 mL/Min [facility] 25.0 U/L 22-51 [facility] 105.83 [facility] Nucleated erythrocytes [Pres ence] in Blood by Automated countOrdered By: Ravi Arguello on 10-29-2022 Nucleated RBC Auto Ql (Bld) 0.0 /100{WBC} 0-0.5 [facility] Platelet mean volume Auto (B ld) [Entitic vol]Ordered By: Ravi Arguello on 10-29-2022 Platelet mean volume (Bld) [Entitic vol] 8.4 fL 6.3-10.7 [facility] Platelets Auto (Bld) [#/Vol] Ordered By: Ravi Arguello on 10-29-2022 Platelets (Bld) [#/Vol] 355 10*3/uL 150-450 [facility] Protein [Mass/volume] in Ser um or PlasmaOrdered By: Ravi Arguello on 10-29-2022 Protein [Mass/Vol] 8.9 g/dL 6.1-7.9 [facility] RBC Auto (Bld) [#/Vol]Ordere d By: Ravi Arguello on 10-29-2022 RBC (Bld) [#/Vol] 5.04 10*6/uL 4.10-5.10 [facility] Serum or plasma alanine florez otransferase measurement without P-5'-P (enzymatic activiOrdered By: Ravi Arguello on 10-29-2022 ALT No additional P-5'-P [Catalytic activity/Vol] 24 U/L 10-60 [facility] Serum or plasma albumin/glob ulin mass ratioOrdered By: Ravi Arguello on 10-29-2022 Albumin/Globulin [Mass ratio] 1.4 {ratio} [facility] Serum or plasma alkaline justin sphatase measurement (enzymatic activity/volume)Ordered By: Ravi Arguello on 10-29-2022 ALP [Catalytic activity/Vol] 68 U/L 32-92 [facility] Serum or plasma anion gap de terminationOrdered By: Ravi Arguello on 10-29-2022 Anion gap [Moles/Vol] 19.9 mmol/L 6.0-15.0 [facility] Serum or plasma aspartate am inotransferase measurement (enzymatic activity/volume)Ordered By: Ravi Arguello on 10-29-2022 AST [Catalytic activity/Vol] 20 U/L 10-42 [facility] Serum or plasma calcium tammy urement (mass/volume)Ordered By: Ravi Arguello on 10-29-2022 Calcium [Mass/Vol] 10.4 mg/dL 8.2-10.2 [facility] Serum or plasma chloride judy surement (moles/volume)Ordered By: Ravi Arguello on 10-29-2022 Chloride [Moles/Vol] 100 mmol/L 95-114 [facility] Serum or plasma creatinine m easurement with calculation of estimated glomerular filtrOrdered By: Ravi Arguello on 10-29-2022 Creatinine and Glomerular filtration rate.predicted panel (S/P/Bld) 0.85 mg/dL 0.44-1.03 [facility] Serum or plasma glucose tammy urement (mass/volume)Ordered By: Ravi Arguello on 10-29-2022 Glucose [Mass/Vol] 114 mg/dL 70-100 [facility] Comment on above: ADA recommended refe rence rangeRandom Glucose Reference Range is dependent on time and content of last meal. Glucose of more than 200 mg/dL in a nonstressed, ambulatory subject supports the diagnosis of Diabetes Mellitus. Serum or plasma non-glucuron idated bilirubin measurement (mass/volume)Ordered By: Ravi Arguello on 10-29-2022 Bilirubin.indirect [Mass/Vol] 1.1 mg/dL [facility] Serum or plasma potassium me asurement (moles/volume)Ordered By: Ravi Arguello on 10-29-2022 Potassium [Moles/Vol] 3.3 mmol/L 3.5-5.1 [facility] Serum or plasma sodium measu rement (moles/volume)Ordered By: Ravi Arguello on 10-29-2022 Sodium [Moles/Vol] 137 mmol/L 136-146 [facility] Serum or plasma total biliru bin measurement (mass/volume)Ordered By: Ravi Arguello on 10-29-2022 Bilirubin [Mass/Vol] 1.2 mg/dL 0.3-1.2 [facility] Serum or plasma total carbon dioxide measurement (moles/volume)Ordered By: Ravi Arguello on 10-29-2022 CO2 [Moles/Vol] 20.4 mmol/L 22.0-30.0 [facility] Serum or plasma urea nitroge n measurement (mass/volume)Ordered By: Ravi Arguello on 10-29-2022 Urea nitrogen [Mass/Vol] 21 mg/dL 9-23 [facility] WBC Auto (Bld) [#/Vol]Ordere d By: Ravi Arguello on 10-29-2022 WBC (Bld) [#/Vol] 13.7 10*3/uL 4.5-13.5 [facility] Amylaseon 08-27-2022 Amylase [Catalytic activity/Vol] 25 U/L Low 28-100 [facility] Comment on above: Order Comment: Reaso n for Exam Nausea and vomiting, unspecified vomiting type Performed By: #### L IPASE, CMP, CBC, AMIRA ####[facility] [id number] [place] [address] [facility] Basophils Auto (Bld) [#/Vol] Ordered By: Modesta Chand on 08-27-2022 Basophils (Bld) [#/Vol] 0.0 10*3/uL 0.0-0.1 [facility] Basophils/100 WBC Auto (Bld) Ordered By: Modesta Chand on 08-27-2022 Basophils/100 WBC (Bld) 0.3 % . [facility] Body fluid albumin measureme nt (mass/volume)Ordered By: Modesta Chand on 08-27-2022 Albumin (Body fld) [Mass/Vol] 4.7 g/dL 3.2-5.5 [facility] Complete Blood Count Auto Di ffon 08-27-2022 Basophils (Bld) [#/Vol] 0.0 10*3/uL Normal 0.0-0.1 [facility] Comment on above: Order Comment: Reaso n for Exam Nausea and vomiting, unspecified vomiting type Result Comment: PERF ORMED BY:[address] [place], [place] [phone] MEDICAL DIRECTORNAY SARKAR M.D. Performed By: #### L IPASE, CMP, CBC, AMIRA ####[address] Basophils/100 WBC (Bld) 0.3 % Normal . [facility] Comment on above: Order Comment: Reaso n for Exam Nausea and vomiting, unspecified vomiting type Performed By: #### L IPASE, CMP, CBC, AMIRA ####[place] [id number] [facility] Eosinophils (Bld) [#/Vol] 0.3 10*3/uL Normal 0.0-0.7 [facility] Comment on above: Order Comment: Reaso n for Exam Nausea and vomiting, unspecified vomiting type Performed By: #### L IPASE, CMP, CBC, AMIRA ####[place] [id number] [facility] Eosinophils/100 WBC (Bld) 2.2 % Normal . [facility] Comment on above: Order Comment: Reaso n for Exam Nausea and vomiting, unspecified vomiting type Performed By: #### L IPASE, CMP, CBC, AMIRA ####[address] Erythrocyte distribution width (RBC) [Ratio] 14.0 % Normal 11.9-15.3 [facility] Comment on above: Order Comment: Reaso n for Exam Nausea and vomiting, unspecified vomiting type Performed By: #### L IPASE, CMP, CBC, AMIRA ####[address] Hematocrit (Bld) [Volume fraction] 46.5 % High 36.0-46.0 [facility] Comment on above: Order Comment: Reaso n for Exam Nausea and vomiting, unspecified vomiting type Performed By: #### L IPASE, CMP, CBC, AMIRA ####[address] Hemoglobin (Bld) [Mass/Vol] 15.6 g/dL Normal 12.0-16.0 [facility] Comment on above: Order Comment: Reaso n for Exam Nausea and vomiting, unspecified vomiting type Performed By: #### L IPASE, CMP, CBC, AMIRA ####[address] Lymphocytes (Bld) [#/Vol] 3.1 10*3/uL Normal 1.20-4.8 [facility] Comment on above: Order Comment: Reaso n for Exam Nausea and vomiting, unspecified vomiting type Performed By: #### L IPASE, CMP, CBC, AMIRA ####[address] Lymphocytes/100 WBC (Bld) 22.9 % Normal . [facility] Comment on above: Order Comment: Reaso n for Exam Nausea and vomiting, unspecified vomiting type Performed By: #### L IPASE, CMP, CBC, AMIRA ####[address] MCH (RBC) [Entitic mass] 28.4 pg Normal 25.0-35.0 [facility] Comment on above: Order Comment: Reaso n for Exam Nausea and vomiting, unspecified vomiting type Performed By: #### L IPASE, CMP, CBC, AMIRA ####[address] MCV (RBC) [Entitic vol] 84.8 fL Normal 78-102 [facility] Comment on above: Order Comment: Reaso n for Exam Nausea and vomiting, unspecified vomiting type Performed By: #### L IPASE, CMP, CBC, AMIRA ####[place] [id number] [facility] Mean Corpuscular HGB Conc 33.5 g/dL Normal 31.0-37.0 [facility] Comment on above: Order Comment: Reaso n for Exam Nausea and vomiting, unspecified vomiting type Performed By: #### L IPASE, CMP, CBC, AMIRA ####[address] Monocytes (Bld) [#/Vol] 1.2 10*3/uL High 0.1-1.00 [facility] Comment on above: Order Comment: Reaso n for Exam Nausea and vomiting, unspecified vomiting type Performed By: #### L IPASE, CMP, CBC, AMIRA ####[address] Monocytes/100 WBC (Bld) 9.1 % Normal . [facility] Comment on above: Order Comment: Reaso n for Exam Nausea and vomiting, unspecified vomiting type Performed By: #### L IPASE, CMP, CBC, AMIRA ####[place] [id number] [facility] Neutrophils (Bld) [#/Vol] 8.8 10*3/uL High 1.2-7.7 [facility] Comment on above: Order Comment: Reaso n for Exam Nausea and vomiting, unspecified vomiting type Performed By: #### L IPASE, CMP, CBC, AMIRA ####[place] [id number] [facility] Neutrophils/100 WBC (Bld) 65.5 % Normal . [facility] Comment on above: Order Comment: Reaso n for Exam Nausea and vomiting, unspecified vomiting type Performed By: #### L IPASE, CMP, CBC, AMIRA ####[place] [id number] [facility] Nucleated RBC/100 WBC (Bld) [Ratio] 0.1 % Normal 0-0.5 [facility] Comment on above: Order Comment: Reaso n for Exam Nausea and vomiting, unspecified vomiting type Performed By: #### L IPASE, CMP, CBC, AMIRA ####[address] Platelet mean volume (Bld) [Entitic vol] 8.9 fL Normal 6.3-10.7 [facility] Comment on above: Order Comment: Reaso n for Exam Nausea and vomiting, unspecified vomiting type Performed By: #### L IPASE, CMP, CBC, AMIRA ####[address] Platelets (Bld) [#/Vol] 373 10*3/uL Normal 150-450 [facility] Comment on above: Order Comment: Reaso n for Exam Nausea and vomiting, unspecified vomiting type Performed By: #### L IPASE, CMP, CBC, AMIRA ####[address] RBC (Bld) [#/Vol] 5.49 10*6/uL High 4.10-5.10 [facility] Comment on above: Order Comment: Reaso n for Exam Nausea and vomiting, unspecified vomiting type Performed By: #### L IPASE, CMP, CBC, AMIRA ####[address] WBC (Bld) [#/Vol] 13.4 10*3/uL Normal 4.5-13.5 [facility] Comment on above: Order Comment: Reaso n for Exam Nausea and vomiting, unspecified vomiting type Performed By: #### L IPASE, CMP, CBC, AMIRA ####[address] Comprehensive Metabolic Pane tushar 08-27-2022 Albumin [Mass/Vol] 4.7 g/dL Normal 3.2-5.5 [facility] Comment on above: Order Comment: Reaso n for Exam Nausea and vomiting, unspecified vomiting type Performed By: #### L IPASE, CMP, CBC, AMIRA ####[address] Albumin/Globulin [Mass ratio] 1.9 {ratio} Normal [facility] Comment on above: Order Comment: Reaso n for Exam Nausea and vomiting, unspecified vomiting type Performed By: #### L IPASE, CMP, CBC, AMIRA ####[place] [id number] [facility] ALP [Catalytic activity/Vol] 63 U/L Normal 32-92 [facility] Comment on above: Order Comment: Reaso n for Exam Nausea and vomiting, unspecified vomiting type Performed By: #### L IPASE, CMP, CBC, AMIRA ####[place] [id number] [facility] ALT [Catalytic activity/Vol] 20 U/L Normal 10-60 [facility] Comment on above: Order Comment: Reaso n for Exam Nausea and vomiting, unspecified vomiting type Performed By: #### L IPASE, CMP, CBC, AMIRA ####[address] [address] [facility] Anion gap [Moles/Vol] 22.5 mmol/L High 6.0-15.0 [facility] Comment on above: Order Comment: Reaso n for Exam Nausea and vomiting, unspecified vomiting type Performed By: #### L IPASE, CMP, CBC, AMIRA ####[place] [id number] [facility] AST [Catalytic activity/Vol] 18 U/L Normal 10-42 [facility] Comment on above: Order Comment: Reaso n for Exam Nausea and vomiting, unspecified vomiting type Performed By: #### L IPASE, CMP, CBC, AMIRA ####[place] [id number] [facility] Bilirubin [Mass/Vol] 1.6 mg/dL High 0.3-1.2 [facility] Comment on above: Order Comment: Reaso n for Exam Nausea and vomiting, unspecified vomiting type Result Comment: Samp les from patients who have taken Naproxen have shown spurious elevation in Total Bilirubin levels. A metabolite of Naproxen, O-desmethylnaproxen, has been shown to interfere with the [place]-Grof method for measuring Total Bilirubin. Performed By: #### L IPASE, CMP, CBC, AMIRA ####[place] [id number] [place] [id number] [facility] Calcium [Mass/Vol] 10.1 mg/dL Normal 8.2-10.2 [facility] Comment on above: Order Comment: Reaso n for Exam Nausea and vomiting, unspecified vomiting type Performed By: #### L IPASE, CMP, CBC, AMIRA ####[place] [id number] [facility] Chloride [Moles/Vol] 89 mmol/L Low 95-114 [facility] Comment on above: Order Comment: Reaso n for Exam Nausea and vomiting, unspecified vomiting type Performed By: #### L IPASE, CMP, CBC, AMIRA ####[place] [id number] [facility] CO2 [Moles/Vol] 23.2 mmol/L Normal 22.0-30.0 [facility] Comment on above: Order Comment: Reaso n for Exam Nausea and vomiting, unspecified vomiting type Performed By: #### L IPASE, CMP, CBC, AMIRA ####[place] [id number] [facility] Creatinine [Mass/Vol] 0.90 mg/dL Normal 0.44-1.03 [facility] Comment on above: Order Comment: Reaso n for Exam Nausea and vomiting, unspecified vomiting type Performed By: #### L IPASE, CMP, CBC, AMIRA ####[place] [id number] [facility] Estimated GFR ( Mahi > 60 [facility] Comment on above: Order Comment: Reaso n for Exam Nausea and vomiting, unspecified vomiting type Result Comment: GFR estimated reference range: According to KDOQI guidelines, <60 ml/min/1.73m2 is sufficient to diagnose a patient with chronic kidney disease. Performed By: #### L IPASE, CMP, CBC, AMIRA ####[place] [id number] [facility] Estimated GFR (Non- Am > 60 [facility] Comment on above: Order Comment: Reaso n for Exam Nausea and vomiting, unspecified vomiting type Performed By: #### L IPASE, CMP, CBC, AMIRA ####[place] [id number] [place] [address] [facility] Globulin (S) [Mass/Vol] 2.5 g/dL Normal [facility] Comment on above: Order Comment: Reaso n for Exam Nausea and vomiting, unspecified vomiting type Performed By: #### L IPASE, CMP, CBC, AMIRA ####[place] [id number] [facility] Glucose [Mass/Vol] 76 mg/dL Normal 70-100 [facility] Comment on above: Order Comment: Reaso n for Exam Nausea and vomiting, unspecified vomiting type Result Comment: [facility] Glucose Reference Range is dependent on time and content of last meal. Glucose of more than 200 mg/dL in a nonstressed, ambulatory subject supports the diagnosis of Diabetes Mellitus. ADA recommended reference range Performed By: #### L IPASE, CMP, CBC, AMIRA ####[address] Potassium [Moles/Vol] 3.7 mmol/L Normal 3.5-5.1 [facility] Comment on above: Order Comment: Reaso n for Exam Nausea and vomiting, unspecified vomiting type Performed By: #### L IPASE, CMP, CBC, AMIRA ####[place] [id number] [place] [id number] [facility] Protein [Mass/Vol] 7.2 g/dL Normal 6.1-7.9 [facility] Comment on above: Order Comment: Reaso n for Exam Nausea and vomiting, unspecified vomiting type Performed By: #### L IPASE, CMP, CBC, AMIRA ####[place] [id number] [place] [address] [facility] Sodium [Moles/Vol] 131 mmol/L Low 136-146 [facility] Comment on above: Order Comment: Reaso n for Exam Nausea and vomiting, unspecified vomiting type Performed By: #### L IPASE, CMP, CBC, AMIRA ####[place] [id number] [facility] Urea nitrogen [Mass/Vol] 15 mg/dL Normal 9-23 [facility] Comment on above: Order Comment: Reaso n for Exam Nausea and vomiting, unspecified vomiting type Performed By: #### L IPASE, CMP, CBC, AMIRA ####[facility] [id number] [place] [id number] [facility] Creatinine and Glomerular fi ltration rate.predicted panel (S/P/Bld)Ordered By: Modesta Chand on 08-27-2022 Creatinine [Mass/Vol] 0.90 mg/dL 0.44-1.03 [facility] Eosinophils Auto (Bld) [#/Vo l]Ordered By: Modesta Chand on 08-27-2022 Eosinophils (Bld) [#/Vol] 0.3 10*3/uL 0.0-0.7 [facility] Eosinophils/100 WBC Auto (Bl d)Ordered By: Modesta Chand on 08-27-2022 Eosinophils/100 WBC (Bld) 2.2 % . [facility] Erythrocyte distribution wid th Auto (RBC) [Ratio]Ordered By: Modesta Chand on 08-27-2022 Erythrocyte distribution width (RBC) [Ratio] 14.0 % 11.9-15.3 [facility] Estimated glomerular filtrat ion rate (GFR) non- AmericanOrdered By: Modesta Chand on 08-27-2022 GFR/1.73 sq M.predicted among non-blacks MDRD (S/P/Bld) [Vol rate/Area] > 60 mL/Min [facility] Globulin Calc (S) [Mass/Vol] Ordered By: Modesta Chand on 08-27-2022 Globulin (S) [Mass/Vol] 2.5 g/dL [facility] Hematocrit Auto (Bld) [Volum e fraction]Ordered By: Modesta Chand on 08-27-2022 Hematocrit (Bld) [Volume fraction] 46.5 % 36.0-46.0 [facility] Hemoglobin [Mass/volume] in BloodOrdered By: Modesta Chand on 08-27-2022 Hemoglobin (Bld) [Mass/Vol] 15.6 g/dL 12.0-16.0 [facility] - Chemistry and C hemistry - challengeOrdered By: Modesta Chand on 08-27-2022 Lipase [Catalytic activity/Vol] 27.0 U/L [facility] - Hematology and Cell countsOrdered By: Modesta Chand on 08-27-2022 Nucleated RBC/100 WBC (Bld) [Ratio] 0.1 % 0-0.5 [facility] Leukocytes [#/volume] in Blo od by Automated countOrdered By: Modesta Chand on 08-27-2022 WBC (Bld) [#/Vol] 13.4 10*3/uL 4.5-13.5 [facility] Lipaseon 08-27-2022 Lipase [Catalytic activity/Vol] 27.0 U/L Normal [facility] Comment on above: Order Comment: Reaso n for Exam Nausea and vomiting, unspecified vomiting type Result Comment: PERF ORMED BY:[facility] [place] [address] [place], [place] [phone] MEDICAL DIRECTORNAY SARKAR M.D. Performed By: #### L IPASE, CMP, CBC, AMIRA ####[facility] [place] [address] [facility] Lymphocytes Auto (Bld) [#/Vo l]Ordered By: Modesta Chand on 08-27-2022 Lymphocytes (Bld) [#/Vol] 3.1 10*3/uL 1.20-4.8 [facility] Lymphocytes/100 WBC Auto (Bl d)Ordered By: Modesta Chand on 08-27-2022 Lymphocytes/100 WBC (Bld) 22.9 % . [facility] MCH Auto (RBC) [Entitic mass ]Ordered By: Modesta Chand on 08-27-2022 MCH (RBC) [Entitic mass] 28.4 pg 25.0-35.0 [facility] MCHC Auto (RBC) [Mass/Vol]Or dered By: Modesta Chand on 08-27-2022 MCHC (RBC) [Mass/Vol] 33.5 g/dL 31.0-37.0 [facility] MCV Auto (RBC) [Entitic vol] Ordered By: Modesta Chand on 08-27-2022 MCV (RBC) [Entitic vol] 84.8 fL 78-102 [facility] Monocytes Auto (Bld) [#/Vol] Ordered By: Modesta Chand on 08-27-2022 Monocytes (Bld) [#/Vol] 1.2 10*3/uL 0.1-1.00 [facility] Monocytes/100 WBC Auto (Bld) Ordered By: Modesta Chand on 08-27-2022 Monocytes/100 WBC (Bld) 9.1 % . [facility] Neutrophils Auto (Bld) [#/Vo l]Ordered By: Modesta Chand on 08-27-2022 Neutrophils (Bld) [#/Vol] 8.8 10*3/uL 1.2-7.7 [facility] Neutrophils/100 WBC Auto (Bl d)Ordered By: Modesta Chand on 08-27-2022 Neutrophils/100 WBC (Bld) 65.5 % . [facility] No Panel InformationOrdered By: Modesta Chand on 08-27-2022 Estimated GFR () > 60 mL/Min [facility] Comment on above: GFR estimated refere nce range: According to KDOQI guidelines, <60 ml/min/1.73m2 is sufficient to diagnose a patient with chronic kidney disease. Pharmacy Creatinine Clearance (Chem N/A [facility] 13.4 10*3/uL 4.5-13.5 [facility] 0.1 % 0-0.5 [facility] > 60 mL/Min [facility] 27.0 U/L 22-51 [facility] N/A [facility] Platelet mean volume Auto (B ld) [Entitic vol]Ordered By: Modesta Chand on 08-27-2022 Platelet mean volume (Bld) [Entitic vol] 8.9 fL 6.3-10.7 [facility] Platelets Auto (Bld) [#/Vol] Ordered By: Modesta Chand on 08-27-2022 Platelets (Bld) [#/Vol] 373 10*3/uL 150-450 [facility] Protein [Mass/volume] in Ser um or PlasmaOrdered By: Modesta Chand on 08-27-2022 Protein [Mass/Vol] 7.2 g/dL 6.1-7.9 [facility] RBC Auto (Bld) [#/Vol]Ordere d By: Modesta Chand on 08-27-2022 RBC (Bld) [#/Vol] 5.49 10*6/uL 4.10-5.10 [facility] Serum or plasma alanine florez otransferase measurement without P-5'-P (enzymatic activiOrdered By: Modesta Chand on 08-27-2022 ALT No additional P-5'-P [Catalytic activity/Vol] 20 U/L 10-60 [facility] Serum or plasma albumin/glob ulin mass ratioOrdered By: Modesta Chand on 08-27-2022 Albumin/Globulin [Mass ratio] 1.9 {ratio} [facility] Serum or plasma alkaline justin sphatase measurement (enzymatic activity/volume)Ordered By: Modesta Chand on 08-27-2022 ALP [Catalytic activity/Vol] 63 U/L 32-92 [facility] Serum or plasma amylase tammy urement (enzymatic activity/volume)Ordered By: Modesta Chand on 08-27-2022 Amylase [Catalytic activity/Vol] 25 U/L 28-100 [facility] Serum or plasma anion gap de terminationOrdered By: Modesta Chand on 08-27-2022 Anion gap [Moles/Vol] 22.5 mmol/L 6.0-15.0 [facility] Serum or plasma aspartate am inotransferase measurement (enzymatic activity/volume)Ordered By: Modesta Chand on 08-27-2022 AST [Catalytic activity/Vol] 18 U/L 10-42 [facility] Serum or plasma calcium tammy urement (mass/volume)Ordered By: Modesta Chand on 08-27-2022 Calcium [Mass/Vol] 10.1 mg/dL 8.2-10.2 [facility] Serum or plasma chloride judy surement (moles/volume)Ordered By: Modesta Chand on 08-27-2022 Chloride [Moles/Vol] 89 mmol/L 95-114 [facility] Serum or plasma creatinine m easurement with calculation of estimated glomerular filtrOrdered By: Modesta Chand on 08-27-2022 Creatinine and Glomerular filtration rate.predicted panel (S/P/Bld) 0.90 mg/dL 0.44-1.03 [facility] Serum or plasma glucose tammy urement (mass/volume)Ordered By: Modesta Chand on 08-27-2022 Glucose [Mass/Vol] 76 mg/dL 70-100 [facility] Comment on above: ADA recommended refe rence rangeRandom Glucose Reference Range is dependent on time and content of last meal. Glucose of more than 200 mg/dL in a nonstressed, ambulatory subject supports the diagnosis of Diabetes Mellitus. Serum or plasma potassium me asurement (moles/volume)Ordered By: Modesta Chand on 08-27-2022 Potassium [Moles/Vol] 3.7 mmol/L 3.5-5.1 [facility] Serum or plasma sodium measu rement (moles/volume)Ordered By: Modesta Chand on 08-27-2022 Sodium [Moles/Vol] 131 mmol/L 136-146 [facility] Serum or plasma total biliru bin measurement (mass/volume)Ordered By: Modesta Chand on 08-27-2022 Bilirubin [Mass/Vol] 1.6 mg/dL 0.3-1.2 [facility] Comment on above: Samples from patient s who have taken Naproxen have shown spurious elevation in Total Bilirubin levels. A metabolite of Naproxen, O-desmethylnaproxen, has been shown to interfere with the Solomon method for measuring Total Bilirubin. Serum or plasma total carbon dioxide measurement (moles/volume)Ordered By: Modesta Chand on 08-27-2022 CO2 [Moles/Vol] 23.2 mmol/L 22.0-30.0 [facility] Serum or plasma urea nitroge n measurement (mass/volume)Ordered By: Modesta Chand on 08-27-2022 Urea nitrogen [Mass/Vol] 15 mg/dL 9- [facility] EDMOND Antinuclear Antibodieson 08-22-2022 Antinuclear Abs, IFA Negative Normal . [facility] Comment on above: Result Comment: Nega tive <1:80 Borderline 1:80 Positive >1:80 ICAP nomenclature: AC-0 For more information about Hep-2 cell patterns use ANApatterns.org, the official website for the International Consensus on Antinuclear Antibody (EDMOND) Patterns (ICAP). Performed at: - [facility] [address] [id number] Master Planner: James Nelson PhD, Phone: [phone] BY:[address] [place], [place] [phone] MEDICAL DIRECTORNAY SARKAR M.D. Performed By: #### A NA ####[facility] , Basic Metabolic Panelon 07-30 Anion gap [Moles/Vol] 17.0 mmol/L High 6.0-15.0 [facility] Comment on above: Performed By: #### H CGQNT, CBC, BMP ####[facility] [id number] [place] [address] [facility] Calcium [Mass/Vol] 9.4 mg/dL Normal 8.2-10.2 [facility] Comment on above: Performed By: #### H CGQNT, CBC, BMP ####[facility] [place] [address] [facility] Chloride [Moles/Vol] 99 mmol/L Normal 95-114 [facility] Comment on above: Performed By: #### H CGQNT, CBC, BMP ####[facility] [id number] [place] [address] [facility] CO2 [Moles/Vol] 21.8 mmol/L Low 22.0-30.0 [facility] Comment on above: Performed By: #### H CGQNT, CBC, BMP ####[facility] [id number] [place] [address] [facility] Creatinine [Mass/Vol] 0.75 mg/dL Normal 0.44-1.03 [facility] Comment on above: Performed By: #### H CGQNT, CBC, BMP ####[facility] [id number] [place] [address] [facility] Creatinine Clr Calc Pharmacy 117.26 [facility] Comment on above: Performed By: #### H CGQNT, CBC, BMP ####[facility] [place] [address] [facility] Estimated GFR ( Mahi > 60 [facility] Comment on above: Result Comment: GFR estimated reference range: According to KDOQI guidelines, <60 ml/min/1.73m2 is sufficient to diagnose a patient with chronic kidney disease. Performed By: #### H CGQNT, CBC, BMP ####[place] [address] [place] [id number] [facility] Estimated GFR (Non- Am > 60 [facility] Comment on above: Performed By: #### H CGQNT, CBC, BMP ####[place] [id number] [facility] Glucose [Mass/Vol] 90 mg/dL Normal 70-100 [facility] Comment on above: Result Comment: [place] Glucose Reference Range is dependent on time and content of last meal. Glucose of more than 200 mg/dL in a nonstressed, ambulatory subject supports the diagnosis of Diabetes Mellitus. ADA recommended reference range Performed By: #### H CGQNT, CBC, BMP ####[place] [id number] [facility] Potassium [Moles/Vol] 3.8 mmol/L Normal 3.5-5.1 [facility] Comment on above: Performed By: #### H CGQNT, CBC, BMP ####[place] [id number] [place] [address] [facility] Sodium [Moles/Vol] 134 mmol/L Low 136-146 [facility] Comment on above: Performed By: #### H CGQNT, CBC, BMP ####[place] [id number] [facility] Urea nitrogen [Mass/Vol] 7 mg/dL Low 9-23 [facility] Comment on above: Performed By: #### H CGQNT, CBC, BMP ####[facility] [id number] [place] [address] [facility] Basophils Auto (Bld) [#/Vol] Ordered By: Gregorio Carey on 08-22-2022 Basophils (Bld) [#/Vol] 0.0 10*3/uL 0.0-0.1 [facility] Basophils/100 WBC Auto (Bld) Ordered By: Gregorio Carey on 08-22-2022 Basophils/100 WBC (Bld) 0.3 % . [facility] Blood hemoglobin measurement (mass/volume)Ordered By: Gregorio Carey on 08-22-2022 Hemoglobin (Bld) [Mass/Vol] 13.1 g/dL 12.0-16.0 [facility] Blood leukocytes automated c ount (number/volume)Ordered By: Gregorio Carey on 08-22-2022 WBC (Bld) [#/Vol] 9.7 10*3/uL 4.5-13.5 [facility] Complete Blood Count Auto Di ffon 08-22-2022 Basophils (Bld) [#/Vol] 0.0 10*3/uL Normal 0.0-0.1 [facility] Comment on above: Result Comment: PERF ORMED BY:[address] [place], [place] [phone] MEDICAL DIRECTORNAY SARKAR M.D. Performed By: #### H CGQNT, CBC, BMP ####[place] [id number] [facility] Basophils/100 WBC (Bld) 0.3 % Normal . [facility] Comment on above: Performed By: #### H CGQNT, CBC, BMP ####[place] [id number] [facility] Eosinophils (Bld) [#/Vol] 0.1 10*3/uL Normal 0.0-0.7 [facility] Comment on above: Performed By: #### H CGQNT, CBC, BMP ####[address] [address] [place] Eosinophils/100 WBC (Bld) 1.0 % Normal . [facility] Comment on above: Performed By: #### H CGQNT, CBC, BMP ####[address] Erythrocyte distribution width (RBC) [Ratio] 14.1 % Normal 11.9-15.3 [facility] Comment on above: Performed By: #### H CGQNT, CBC, BMP ####[address] Hematocrit (Bld) [Volume fraction] 39.6 % Normal 36.0-46.0 [facility] Comment on above: Performed By: #### H CGQNT, CBC, BMP ####[address] Hemoglobin (Bld) [Mass/Vol] 13.1 g/dL Normal 12.0-16.0 [facility] Comment on above: Performed By: #### H CGQNT, CBC, BMP ####[address] Lymphocytes (Bld) [#/Vol] 2.0 10*3/uL Normal 1.20-4.8 [facility] Comment on above: Performed By: #### H CGQNT, CBC, BMP ####[address] Lymphocytes/100 WBC (Bld) 20.5 % Normal . [facility] Comment on above: Performed By: #### H CGQNT, CBC, BMP ####[address] MCH (RBC) [Entitic mass] 28.0 pg Normal 25.0-35.0 [facility] Comment on above: Performed By: #### H CGQNT, CBC, BMP ####[address] MCV (RBC) [Entitic vol] 84.5 fL Normal 78-102 [facility] Comment on above: Performed By: #### H CGQNT, CBC, BMP ####[address] Mean Corpuscular HGB Conc 33.2 g/dL Normal 31.0-37.0 [facility] Comment on above: Performed By: #### H CGQNT, CBC, BMP ####[address] Monocytes (Bld) [#/Vol] 0.8 10*3/uL Normal 0.1-1.00 [facility] Comment on above: Performed By: #### H CGQNT, CBC, BMP ####[address] Monocytes/100 WBC (Bld) 8.0 % Normal . [facility] Comment on above: Performed By: #### H CGQNT, CBC, BMP ####[address] Neutrophils (Bld) [#/Vol] 6.8 10*3/uL Normal 1.2-7.7 [facility] Comment on above: Performed By: #### H CGQNT, CBC, BMP ####[address] Neutrophils/100 WBC (Bld) 70.2 % Normal . [facility] Comment on above: Performed By: #### H CGQNT, CBC, BMP ####[address] Nucleated RBC/100 WBC (Bld) [Ratio] 0.0 % Normal 0-0.5 [facility] Comment on above: Performed By: #### H CGQNT, CBC, BMP ####[address] Platelet mean volume (Bld) [Entitic vol] 8.6 fL Normal 6.3-10.7 [facility] Comment on above: Performed By: #### H CGQNT, CBC, BMP ####[address] Platelets (Bld) [#/Vol] 246 10*3/uL Normal 150-450 [facility] Comment on above: Performed By: #### H CGQNT, CBC, BMP ####[facility] [id number] RBC (Bld) [#/Vol] 4.69 10*6/uL Normal 4.10-5.10 [facility] Comment on above: Performed By: #### H CGQNT, CBC, BMP ####[facility] [id number] WBC (Bld) [#/Vol] 9.7 10*3/uL Normal 4.5-13.5 [facility] Comment on above: Performed By: #### H CGQNT, CBC, BMP ####[facility] [id number] Creatinine and Glomerular fi ltration rate.predicted panel (S/P/Bld)Ordered By: Gregorio Carey on 08-22-2022 Creatinine [Mass/Vol] 0.75 mg/dL 0.44-1.03 [facility] Eosinophils Auto (Bld) [#/Vo l]Ordered By: Gregorio Carey on 08-22-2022 Eosinophils (Bld) [#/Vol] 0.1 10*3/uL 0.0-0.7 [facility] Eosinophils/100 WBC Auto (Bl d)Ordered By: Gregorio Carey on 08-22-2022 Eosinophils/100 WBC (Bld) 1.0 % . [facility] Erythrocyte distribution wid th Auto (RBC) [Ratio]Ordered By: Gregorio Carey on 08-22-2022 Erythrocyte distribution width (RBC) [Ratio] 14.1 % 11.9-15.3 [facility] Estimated glomerular filtrat ion rate (GFR) non- AmericanOrdered By: Gregorio Carey on 08-22-2022 GFR/1.73 sq M.predicted among non-blacks MDRD (S/P/Bld) [Vol rate/Area] > 60 mL/Min [facility] HCG,Quantitativeon 2 HCG,Quantitative < 0.[address] [facility] Comment on above: Result Comment: Appr oximate Approximate hCG Gestational Age Range (mIU/ml) (weeks) 0.2-1 5-50 1-2 50-500 2-3 100-5,000 3-4 500-10,000 4-5 1,000-50,000 5-6 10,000-100,000 6-8 15,000-200,000 8-12 10,000-100,000PERFORMED BY:[facility] [place], [place] [phone] MEDICAL DIRECTORNAY SARKAR M.D. Performed By: #### H CGQNT, CBC, BMP ####[facility] [id number] [place] [address] [place] Hematocrit Auto (Bld) [Volum e fraction]Ordered By: Gregorio Carey on 08-22-2022 Hematocrit (Bld) [Volume fraction] 39.6 % 36.0-46.0 [facility] - Hematology and Cell countsOrdered By: Gregorio Carey on 08-22-2022 Nucleated RBC/100 WBC (Bld) [Ratio] 0.0 % 0-0.5 [facility] Lymphocytes Auto (Bld) [#/Vo l]Ordered By: Gregorio Carey on 08-22-2022 Lymphocytes (Bld) [#/Vol] 2.0 10*3/uL 1.20-4.8 [facility] Lymphocytes/100 WBC Auto (Bl d)Ordered By: Gregorio Carey on 08-22-2022 Lymphocytes/100 WBC (Bld) 20.5 % . [facility] MCH Auto (RBC) [Entitic mass ]Ordered By: Gregorio Carey on 08-22-2022 MCH (RBC) [Entitic mass] 28.0 pg 25.0-35.0 [facility] MCHC Auto (RBC) [Mass/Vol]Or dered By: Gregorio Carey on 08-22-2022 MCHC (RBC) [Mass/Vol] 33.2 g/dL 31.0-37.0 [facility] MCV Auto (RBC) [Entitic vol] Ordered By: Gregorio Carey on 08-22-2022 MCV (RBC) [Entitic vol] 84.5 fL 78-102 [facility] Monocytes Auto (Bld) [#/Vol] Ordered By: Gregorio Carey on 08-22-2022 Monocytes (Bld) [#/Vol] 0.8 10*3/uL 0.1-1.00 [facility] Monocytes/100 WBC Auto (Bld) Ordered By: Gregorio Carey on 08-22-2022 Monocytes/100 WBC (Bld) 8.0 % . [facility] Neutrophils Auto (Bld) [#/Vo l]Ordered By: Gregorio Carey on 08-22-2022 Neutrophils (Bld) [#/Vol] 6.8 10*3/uL 1.2-7.7 [facility] Neutrophils/100 WBC Auto (Bl d)Ordered By: Gregorio Carey on 08-22-2022 Neutrophils/100 WBC (Bld) 70.2 % . [facility] No Panel InformationOrdered By: Gregorio Carey on 08-22-2022 Estimated GFR () > 60 mL/Min [facility] Comment on above: GFR estimated refere nce range: According to KDOQI guidelines, <60 ml/min/1.73m2 is sufficient to diagnose a patient with chronic kidney disease. Pharmacy Creatinine Clearance (Chem 117.26 [facility] 9.7 10*3/uL 4.5-13.5 [facility] 0.0 % 0-0.5 [facility] > 60 mL/Min [facility] 117.26 [facility] Platelet mean volume Auto (B ld) [Entitic vol]Ordered By: Gregorio Carey on 08-22-2022 Platelet mean volume (Bld) [Entitic vol] 8.6 fL 6.3-10.7 [facility] Platelets Auto (Bld) [#/Vol] Ordered By: Gregorio Carey on 08-22-2022 Platelets (Bld) [#/Vol] 246 10*3/uL 150-450 [facility] RBC Auto (Bld) [#/Vol]Ordere d By: Gregorio Carey on 08-22-2022 RBC (Bld) [#/Vol] 4.69 10*6/uL 4.10-5.10 [facility] Serum nuclear antibody titer Ordered By: Gregorio Carey on 08-22-2022 Nuclear Ab (S) [Titer] Negative . [facility] Comment on above: Negative <1:80 Borde rline 1:80 Positive >1:80ICAP nomenclature: AC-0For more information about Hep-2 cell patterns useAURORA EAST HOSPITALpatterns.org, the official website for theInternational Consensus on Antinuclear Antibody (EDMOND)Patterns (ICAP).Performed at: [facility] [place] [id number] Director: James Nelson PhD, Phone: [phone] Serum or plasma anion gap de terminationOrdered By: Gregorio Carey on 08-22-2022 Anion gap [Moles/Vol] 17.0 mmol/L 6.0-15.0 [facility] Serum or plasma beta choriog onadotropin measurement (units/volume)Ordered By: Gregorio Carey on 08-22-2022 HCG.beta subunit Qn m[IU]/mL [facility] Comment on above: Approximate Approxim ate hCG Gestational Age Range (mIU/ml) (weeks) 0.2-1 5-50 1-2 50-500 2-3 100-5,000 3-4 500-10,000 4-5 1,000-50,000 5-6 10,000-100,000 6-8 15,000-200,000 8-12 10,000-100,000 Approximate Approxim ate hCG Gestational Age Range (mIU/ml) (weeks)0.2-1 5-50 1-2 50-500 2-3 100-5,000 3-4 500-10,000 4-5 1,000-50,000 5-6 10,000-100,000 6-8 15,000-200,000 8-12 10,000-100,000 Serum or plasma calcium tammy urement (mass/volume)Ordered By: Gregorio Carey on 08-22-2022 Calcium [Mass/Vol] 9.4 mg/dL 8.2-10.2 [facility] Serum or plasma chloride judy surement (moles/volume)Ordered By: Gregorio Carey on 08-22-2022 Chloride [Moles/Vol] 99 mmol/L 95-114 [facility] Serum or plasma creatinine m easurement with calculation of estimated glomerular filtrOrdered By: Gregorio Carey on 08-22-2022 Creatinine and Glomerular filtration rate.predicted panel (S/P/Bld) 0.75 mg/dL 0.44-1.03 [facility] Serum or plasma glucose tammy urement (mass/volume)Ordered By: Gregorio Carey on 08-22-2022 Glucose [Mass/Vol] 90 mg/dL 70-100 [facility] Comment on above: ADA recommended refe rence range Random Glucose Reference Range is dependent on time and content of last meal. Glucose of more than 200 mg/dL in a nonstressed, ambulatory subject supports the diagnosis of Diabetes Mellitus. ADA recommended refe rence rangeRandom Glucose Reference Range is dependent on time and content of last meal. Glucose of more than 200 mg/dL in a nonstressed, ambulatory subject supports the diagnosis of Diabetes Mellitus. Serum or plasma potassium me asurement (moles/volume)Ordered By: Gregorio Carey on 08-22-2022 Potassium [Moles/Vol] 3.8 mmol/L 3.5-5.1 [facility] Serum or plasma sodium measu rement (moles/volume)Ordered By: Gregorio Carey on 08-22-2022 Sodium [Moles/Vol] 134 mmol/L 136-146 [facility] Serum or plasma total carbon dioxide measurement (moles/volume)Ordered By: Gregorio Carey on 08-22-2022 CO2 [Moles/Vol] 21.8 mmol/L 22.0-30.0 [facility] Serum or plasma urea nitroge n measurement (mass/volume)Ordered By: Gregorio Carey on 08-22-2022 Urea nitrogen [Mass/Vol] 7 mg/dL 08-20 [facility] Urine culture routineOrdered By: Gregorio Carey on 08-22-2022 Bacteria identified Cx Nom (U) 2 Days [facility] Urine culture routineOrdered By: Gilson Castro on 08-22-2022 Bacteria identified Cx Nom (U) 2 Days [facility] Basic Metabolic Panelon 07-30 Anion gap [Moles/Vol] 11.9 mmol/L Normal 6.0-15.0 [facility] [facility] Comment on above: Performed By: #### B MP, CBC ####[facility] [id number] [place] [address] [facility] Calcium [Mass/Vol] 8.8 mg/dL Normal 8.2-10.2 [facility] Comment on above: Performed By: #### B MP, CBC ####[place] [id number] [place] [address] [place] Chloride [Moles/Vol] 105 mmol/L Normal 95-114 [facility] Comment on above: Performed By: #### B MP, CBC ####[facility] [id number] [place] [address] [facility] CO2 [Moles/Vol] 20.6 mmol/L Low 22.0-30.0 [facility] Comment on above: Performed By: #### B MP, CBC ####[facility] [id number] [place] [address] [place] Creatinine [Mass/Vol] 0.67 mg/dL Normal 0.44-1.03 [facility] Comment on above: Performed By: #### B MP, CBC ####[facility] [id number] [place] [address] [place] Creatinine Clr Calc Pharmacy 131.17 Normal [facility] Comment on above: Result Comment: PERF ORMED BY:[place] [address] [place], [place] [phone] MEDICAL DIRECTORNAY SARKAR M.D. Performed By: #### B MP, CBC ####[address] [address] [facility] Estimated GFR ( Mahi > 60 [facility] Comment on above: Result Comment: GFR estimated reference range: According to KDOQI guidelines, <60 ml/min/1.73m2 is sufficient to diagnose a patient with chronic kidney disease. Performed By: #### B MP, CBC ####[address] [address] [facility] Estimated GFR (Non- Am > 60 [facility] Comment on above: Performed By: #### B MP, CBC ####[place] [id number] [facility] Glucose [Mass/Vol] 106 mg/dL High 70-100 [facility] Comment on above: Result Comment: [place] om Glucose Reference Range is dependent on time and content of last meal. Glucose of more than 200 mg/dL in a nonstressed, ambulatory subject supports the diagnosis of Diabetes Mellitus. ADA recommended reference range Performed By: #### B MP, CBC ####[address] [address] [facility] Potassium [Moles/Vol] 3.5 mmol/L Normal 3.5-5.1 [facility] Comment on above: Performed By: #### B MP, CBC ####[address] [address] [facility] Sodium [Moles/Vol] 134 mmol/L Low 136-146 [facility] Comment on above: Performed By: #### B MP, CBC ####[address] [address] [facility] Urea nitrogen [Mass/Vol] 9 mg/dL Normal 9-23 [facility] Comment on above: Performed By: #### B MP, CBC ####[address] [address] [facility] Complete Blood Count Auto Di ffon 08-21-2022 Basophils (Bld) [#/Vol] 0.0 10*3/uL Normal 0.0-0.1 [facility] Comment on above: Result Comment: PERF ORMED BY:[address] [place] [phone] MEDICAL DIRECTORNAY SARKAR M.D. Performed By: #### B MP, CBC ####[address] Basophils/100 WBC (Bld) 0.4 % Normal . [facility] Comment on above: Performed By: #### B MP, CBC ####[address] Eosinophils (Bld) [#/Vol] 0.1 10*3/uL Normal 0.0-0.7 [facility] Comment on above: Performed By: #### B MP, CBC ####[address] Eosinophils/100 WBC (Bld) 0.6 % Normal . [facility] Comment on above: Performed By: #### B MP, CBC ####[address] Erythrocyte distribution width (RBC) [Ratio] 13.8 % Normal 11.9-15.3 [facility] Comment on above: Performed By: #### B MP, CBC ####[address] Hematocrit (Bld) [Volume fraction] 35.3 % Low 36.0-46.0 [facility] Comment on above: Performed By: #### B MP, CBC ####[address] Hemoglobin (Bld) [Mass/Vol] 11.9 g/dL Low 12.0-16.0 [facility] Comment on above: Performed By: #### B MP, CBC ####[address] Lymphocytes (Bld) [#/Vol] 1.3 10*3/uL Normal 1.20-4.8 [facility] Comment on above: Performed By: #### B MP, CBC ####[address] Lymphocytes/100 WBC (Bld) 14.6 % Normal . [facility] Comment on above: Performed By: #### B MP, CBC ####[address] MCH (RBC) [Entitic mass] 28.5 pg Normal 25.0-35.0 [facility] Comment on above: Performed By: #### B MP, CBC ####[address] MCV (RBC) [Entitic vol] 84.6 fL Normal 78-102 [facility] Comment on above: Performed By: #### B MP, CBC ####[address] Mean Corpuscular HGB Conc 33.7 g/dL Normal 31.0-37.0 [facility] Comment on above: Performed By: #### B MP, CBC ####[address] Monocytes (Bld) [#/Vol] 0.6 10*3/uL Normal 0.1-1.00 [facility] Comment on above: Performed By: #### B MP, CBC ####[address] Monocytes/100 WBC (Bld) 7.1 % Normal . [facility] Comment on above: Performed By: #### B MP, CBC ####[address] Neutrophils (Bld) [#/Vol] 7.0 10*3/uL Normal 1.2-7.7 [facility] Comment on above: Performed By: #### B MP, CBC ####[address] Neutrophils/100 WBC (Bld) 77.3 % Normal . [facility] Comment on above: Performed By: #### B MP, CBC ####[address] Nucleated RBC/100 WBC (Bld) [Ratio] 0.1 % Normal 0-0.5 [facility] Comment on above: Performed By: #### B MP, CBC ####[address] Platelet mean volume (Bld) [Entitic vol] 8.8 fL Normal 6.3-10.7 [facility] Comment on above: Performed By: #### B MP, CBC ####[address] Platelets (Bld) [#/Vol] 207 10*3/uL Normal 150-450 [facility] Comment on above: Performed By: #### B MP, CBC ####[address] RBC (Bld) [#/Vol] 4.17 10*6/uL Normal 4.10-5.10 [facility] Comment on above: Performed By: #### B MP, CBC ####[address] WBC (Bld) [#/Vol] 9.1 10*3/uL Normal 4.5-13.5 [facility] Comment on above: Performed By: #### B MP, CBC ####[address] Urine culture routineOrdered By: Colten Fry on 08-21-2022 Bacteria identified Cx Nom (U) 2 Days [facility] Amphetamine Screen Ql (U)Ord ered By: Gilson Castro on 08-20-2022 Amphetamines Ql (U) Negative Negative [facility] Automated erythrocytes count in urine sediment (number/area)Ordered By: Gilson Castro on 08-20-2022 RBC Auto (Urine sed) [#/Area] None seen [HPF] 0-4 [facility] Automated leukocytes count i n urine sediment (number/area)Ordered By: Gilson Castro on 08-20-2022 WBC Auto (Urine sed) [#/Area] 1-2 [HPF] 0-4 [facility] Barbiturates [Presence] in U rineOrdered By: Gilson Castro on 08-20-2022 Barbiturates Ql (U) Positive Negative [facility] Basic Metabolic Panelon 07-30 Anion gap [Moles/Vol] 15.2 mmol/L High 6.0-15.0 [facility] Comment on above: Performed By: #### B MP, SCAN CBC, MG ####[place] [id number] Calcium [Mass/Vol] 8.6 mg/dL Normal 8.2-10.2 [facility] Comment on above: Performed By: #### B MP, SCAN CBC, MG ####[place] [address] [place] [id number] [facility] Chloride [Moles/Vol] 101 mmol/L Normal 95-114 [facility] Comment on above: Performed By: #### B MP, SCAN CBC, MG ####[place] [id number] CO2 [Moles/Vol] 21.9 mmol/L Low 22.0-30.0 [facility] Comment on above: Performed By: #### B MP, SCAN CBC, MG ####[place] [address] [place] [id number] [facility] Creatinine [Mass/Vol] 0.65 mg/dL Normal 0.44-1.03 [facility] Comment on above: Performed By: #### B MP, SCAN CBC, MG ####[facility] [id number] [place] [address] [place] Creatinine Clr Calc Pharmacy 136.96 [facility] Comment on above: Performed By: #### B MP, SCAN CBC, MG ####[facility] [address] [place] [address] [facility] Estimated GFR ( Mahi > 60 [facility] Comment on above: Result Comment: GFR estimated reference range: According to KDOQI guidelines, <60 ml/min/1.73m2 is sufficient to diagnose a patient with chronic kidney disease. Performed By: #### B MP, SCAN CBC, MG ####[place] [id number] Estimated GFR (Non- Am > 60 Normal [facility] Comment on above: Performed By: #### B MP, SCAN CBC, MG ####[place] [address] Glucose [Mass/Vol] 96 mg/dL Normal 70-100 [facility] Comment on above: Result Comment: [place] Glucose Reference Range is dependent on time and content of last meal. Glucose of more than 200 mg/dL in a nonstressed, ambulatory subject supports the diagnosis of Diabetes Mellitus. ADA recommended reference range Performed By: #### B MP, SCAN CBC, MG ####[place] [id number] Potassium [Moles/Vol] 3.1 mmol/L Low 3.5-5.1 [facility] Comment on above: Performed By: #### B MP, SCAN CBC, MG ####[address] Sodium [Moles/Vol] 135 mmol/L Low 136-146 [facility] Comment on above: Performed By: #### B MP, SCAN CBC, MG ####[address] Urea nitrogen [Mass/Vol] 11 mg/dL Normal 9-23 [facility] Comment on above: Performed By: #### B MP, SCAN CBC, MG ####[address] [place] [id number] [facility] Basophils Auto (Bld) [#/Vol] Ordered By: Gilson Castro on 08-20-2022 Basophils (Bld) [#/Vol] 0.0 10*3/uL 0.0-0.1 [facility] Basophils/100 WBC Auto (Bld) Ordered By: Gilson Castro on 08-20-2022 Basophils/100 WBC (Bld) 0.4 % . [facility] Benzodiazepines [Presence] i n UrineOrdered By: Gilson Castro on 08-20-2022 Benzodiazepines Ql (U) Negative Negative [facility] Bilirubin Test strip Ql (U)O rdered By: Gilson Castro on 08-20-2022 Bilirubin Ql (U) Negative Negative [facility] Blood anisocytosis detection Ordered By: Gilson Castro on 08-20-2022 Anisocytosis Ql (Bld) Slight Fir [facility] Blood hemoglobin measurement (mass/volume)Ordered By: Gilson Castro on 08-20-2022 Hemoglobin (Bld) [Mass/Vol] 12.1 g/dL 12.0-16.0 [facility] Blood leukocytes automated c ount (number/volume)Ordered By: Gilson Castro on 08-20-2022 WBC (Bld) [#/Vol] 10.9 10*3/uL 4.5-13.5 [facility] COVID-19 Antigenon 2 COVID-[address] [facility] Comment on above: Performed By: #### S OFIANEG, COVID-19 MEY, COVID 19 [facility] ####[facility] [address] [place] [id number] [facility] COVID-19 FRMCon 08-20-2022 SARS-CoV-2 (COVID-19) RNA JAANK+probe Ql (Unsp spec) Negative Normal Negative [facility] Comment on above: Order Comment: Healt hcare Worker?: N Result Comment: Test ing for SARS-CoV-2 by RT-PCR This test was developed and its performance characteristics determined by [employer] and validated at the [facility]. This test has not been FDA cleared or approved. This test has been authorized by FDA under an Emergency Use Authorization (EUA). This test has been validated in accordance with the FDA's Guidance Document (Policy for Diagnostics Testing in Laboratories Certified to Perform High Complexity Testing under CLIA prior to Emergency Use Authorization for Coronavirus Disease-2019 during the Public Health Emergency) issued on February 28, 2020. This test is only authorized for the duration of time the declaration that circumstances exist justifying the authorization of the emergency use of in vitro diagnostic tests for detection of SARS-CoV-2 virus and/or diagnosis of COVID-19 infection under section 564(b)(1) of the Act, 21 U.S.C. 360bbb-3(b)(1), unless the authorization is terminated or revoked sooner.PERFORMED BY:[facility] [place] [id number] MEDICAL DIRECTORNAY SARKAR M.D. Performed By: #### S OFIANEG, COVID-19 MEY, COVID 19 [facility] ####[facility] [address] [place] [address] [facility] COVID-19 Positive/NegativeOr dered By: Ravi Arguello on 08-20-2022 SARS-CoV-2 (COVID-19) N gene JANAK+probe Ql (Resp) Negative Negative [facility] Comment on above: Testing for SARS-CoV -2 by RT-PCR This test was developed and its performance characteristics determined by [employer]) and validated at the [facility]. This test has not been FDA cleared or approved. This test has been authorized by FDA under an Emergency Use Authorization (EUA). This test has been validated in accordance with the FDA's Guidance Document (Policy for Diagnostics Testing in Laboratories Certified to Perform High Complexity Testing under CLIA prior to Emergency Use Authorization for Coronavirus Disease-2019 during the Public Health Emergency) issued on February 28, 2020. This test is only authorized for the duration of time the declaration that circumstances exist justifying the authorization of the emergency use of in vitro diagnostic tests for detection of SARS-CoV-2 virus and/or diagnosis of COVID-19 infection under section 564(b)(1) of the Act, 21 U.S.C. 360bbb-3(b)(1), unless the authorization is terminated or revoked sooner. Testing for SARS-CoV -2 by RT-PCRThis test was developed and its performance characteristics determined by [employer] and validated at the [facility]. This test has not been FDA cleared or approved. This test has been authorized by FDA under an Emergency Use Authorization (EUA). This test has been validated in accordance with the FDA's Guidance Document (Policy for Diagnostics Testing in Laboratories Certified to Perform High Complexity Testing under CLIA prior to Emergency Use Authorization for Coronavirus Disease-2019 during the Public Health Emergency) issued on February 28, 2020. This test is only authorized for the duration of time the declaration that circumstances exist justifying the authorization of the emergency use of in vitro diagnostic tests for detection of SARS-CoV-2 virus and/or diagnosis of COVID-19 infection under section 564(b)(1) of the Act, 21 U.S.C. 360bbb-3(b)(1), unless the authorization is terminated or revoked sooner. COVID-19 SOFIAOrdered By: Jr Arguello on 08-20-2022 SARS-CoV+SARS-CoV-2 (COVID-19) Ag IA.rapid Ql (Resp) Negative Negative [facility] Comment on above: This is a duplicate Mey SARS Antigen (JOSE A) result to be used for statistical tracking purpose only. CT abdomen pelvis w conon CT abdomen pelvis w con Normal [facility] Cannabinoids [Presence] in U rine by Screen methodOrdered By: Gilson Castro on 08-20-2022 Cannabinoids Screen Ql (U) Positive Negative [facility] Comment on above: These are unconfirme d results and should not be used for legal purposes. Drug Cut-Off Concentration: AMPH 1000 ng/mL NIKOLAS 200 ng/mL SHRAVAN 200 ng/mL COCM 300 ng/mL OP 300 ng/mL PCP 25 ng/mL THC 20 ng/mL These are unconfirme d results and should not be used for legal purposes. Drug Cut-Off Concentration: AMPH 1000 ng/mL NIKOLAS 200 ng/mL SHRAVAN 200 ng/mL COCM 300 ng/mL OP 300 ng/mL PCP 25 ng/mL THC 20 ng/mL Color Auto (U)Ordered By: Pierce Castro on 08-20-2022 Color (U) Yellow Yellow [facility] Creatinine and Glomerular fi ltration rate.predicted panel (S/P/Bld)Ordered By: Gilson Castro on 08-20-2022 Creatinine [Mass/Vol] 0.65 mg/dL 0.44-1.03 Fir [facility] Dipstick and Microscopicon 0 08-20-2022 Appearance (U) Clear Normal Clear [facility] Comment on above: Order Comment: Name Collection Type:: Clean-Voided Midstream Performed By: #### A DDONUAPLUS, URDS ####[address] [address] [facility] Bacteria,Urine None Seen Normal None Seen [facility] Comment on above: Order Comment: Name Collection Type:: Clean-Voided Midstream Performed By: #### A DDONUAPLUS, URDS ####[address] [address] [facility] Bilirubin,Urine Negative Normal Negative [facility] Comment on above: Order Comment: Name Collection Type:: Clean-Voided Midstream Performed By: #### A DDONUAPLUS, URDS ####[address] [address] [facility] Color (U) Yellow Normal Yellow [facility] Comment on above: Order Comment: Name Collection Type:: Clean-Voided Midstream Performed By: #### A DDONUAPLUS, URDS ####[address] [address] [facility] Glucose Ql (U) Normal Normal Normal [facility] Comment on above: Order Comment: Name Collection Type:: Clean-Voided Midstream Performed By: #### A DDONUAPLUS, URDS ####[address] [address] [facility] Hyaline Casts,Urine None Seen Normal 0-8 [facility] Comment on above: Order Comment: Name Collection Type:: Clean-Voided Midstream Result Comment: PERF ORMED BY:[address] [place], [place] [id number] MEDICAL TASHI SARKAR M.D. Performed By: #### A DDONUAPLUS, URDS ####[address] [address] [place] Ketones Ql (U) 2+ High Negative [facility] Comment on above: Order Comment: Name Collection Type:: Clean-Voided Midstream Performed By: #### A DDONUAPLUS, URDS ####[place] [address] [place] [address] [facility] Leukocyte esterase Test strip Ql (U) 1+ High Negative [facility] Comment on above: Order Comment: Name Collection Type:: Clean-Voided Midstream Performed By: #### A DDONUAPLUS, URDS ####[address] [place] [address] [facility] Nitrite,Urine Negative Normal Negative [facility] Comment on above: Order Comment: Name Collection Type:: Clean-Voided Midstream Performed By: #### A DDONUAPLUS, URDS ####[address] [address] [facility] Occult Blood,Urine Negative Normal Negative [facility] Comment on above: Order Comment: Name Collection Type:: Clean-Voided Midstream Result Comment: PERF ORMED BY:[address] [place], [place] [id number] MEDICAL DIRECTORNAY SARKAR M.D. Performed By: #### A DDONUAPLUS, URDS ####[address] [address] [facility] pH (U) 7.0 [pH] Normal 5.0-9.0 [facility] Comment on above: Order Comment: Name Collection Type:: Clean-Voided Midstream Performed By: #### A DDONUAPLUS, URDS ####[address] [address] [facility] Protein,Urine Negative Normal Negative [facility] Comment on above: Order Comment: Name Collection Type:: Clean-Voided Midstream Performed By: #### A DDONUAPLUS, URDS ####[address] [address] [facility] RBC,Urine None Seen Normal 0-4 [facility] Comment on above: Order Comment: Name Collection Type:: Clean-Voided Midstream Performed By: #### A DDONUAPLUS, URDS ####[address] [address] [facility] Specificy Crane,Urine 1.008 Normal 1.001-1.03 0 [facility] Comment on above: Order Comment: Name Collection Type:: Clean-Voided Midstream Performed By: #### A DDONUAPLUS, URDS ####[address] [place] [address] [facility] Squamous Epithelial Cell,Urine 1-2 Normal 0-2 [facility] Comment on above: Order Comment: Name Collection Type:: Clean-Voided Midstream Performed By: #### A DDONUAPLUS, URDS ####[address] [address] [facility] Urobilinogen,Urine Normal Normal Normal [facility] Comment on above: Order Comment: Name Collection Type:: Clean-Voided Midstream Performed By: #### A DDONUAPLUS, URDS ####[address] [address] [facility] WBC,Urine 1-2 Normal 0-4 [facility] Comment on above: Order Comment: Name Collection Type:: Clean-Voided Midstream Performed By: #### A DDONUAPLUS, URDS ####[address] [address] [facility] Drug Screen,Urineon 08-20-20 Amphetamine Screen,Urine Negative Normal Negative [facility] Comment on above: Performed By: #### A DDONUAPLUS, URDS ####[address] [address] [facility] Barbiturate Screen,Urine Positive High Negative [facility] Comment on above: Performed By: #### A DDONUAPLUS, URDS ####[address] [place] [address] [facility] Benzodiazepines Screen,Urine Negative Normal Negative [facility] Comment on above: Performed By: #### A DDONUAPLUS, URDS ####[address] [address] [facility] Cannabinoid Screen,Urine Positive High Negative [facility] Comment on above: Result Comment: Thes e are unconfirmed results and should not be used for legal purposes. Drug Cut-Off Concentration: AMPH 1000 ng/mL NIKOLAS 200 ng/mL SHRAVAN 200 ng/mL COCM 300 ng/mL OP 300 ng/mL PCP 25 ng/mL THC 20 ng/mLPERFORMED BY:[facility] [place], [place] [phone] MEDICAL DIRECTORNAY SAKRAR M.D. Performed By: #### A DDONUAPLUS, URDS ####[facility] [address] [place] [id number] [facility] Cocaine Screen,Urine Negative Normal Negative [facility] Comment on above: Performed By: #### A DDONUAPLUS, URDS ####[facility] [id number] [place] [id number] [facility] Opiate Screen,Urine Negative Normal Negative [facility] Comment on above: Performed By: #### A DDONUAPLUS, URDS ####[facility] [id number] [place] [id number] [facility] Phencyclidine Screen,Urine Negative Normal Negative [facility] Comment on above: Performed By: #### A DDONUAPLUS, URDS ####[facility] [id number] [place] [id number] [facility] Eosinophils Auto (Bld) [#/Vo l]Ordered By: Gilson Castro on 08-20-2022 Eosinophils (Bld) [#/Vol] 0.0 10*3/uL 0.0-0.7 [facility] Eosinophils/100 WBC Auto (Bl d)Ordered By: Gilson Castro on 08-20-2022 Eosinophils/100 WBC (Bld) 0.3 % . [facility] Erythrocyte distribution wid th Auto (RBC) [Ratio]Ordered By: Gilson Castro on 08-20-2022 Erythrocyte distribution width (RBC) [Ratio] 13.9 % 11.9-15.3 [facility] Estimated glomerular filtrat ion rate (GFR) non- AmericanOrdered By: Gilson Castro on 08-20-2022 GFR/1.73 sq M.predicted among non-blacks MDRD (S/P/Bld) [Vol rate/Area] > 60 mL/Min [facility] Hematocrit Auto (Bld) [Volum e fraction]Ordered By: Gilson Castro on 08-20-2022 Hematocrit (Bld) [Volume fraction] 36.8 % 36.0-46.0 [facility] Ketones Auto test strip (U) [Mass/Vol]Ordered By: Gilson Castro on 08-20-2022 Ketones (U) [Mass/Vol] 2+ Negative Fi [facility] - Chemistry and C hemistry - challengeOrdered By: Gilson Castro on 08-20-2022 Magnesium [Mass/Vol] 1.9 mg/dL 1.6-2.6 [facility] Laboratory - Drug toxicology Ordered By: Gilson Castro on 08-20-2022 Opiates Ql (U) Negative Negative [facility] - Hematology and Cell countsOrdered By: Gilson Castro on 08-20-2022 Nucleated RBC/100 WBC (Bld) [Ratio] 0.0 % 0-0.5 [facility] - UrinalysisOrder ed By: Gilson Castro on 08-20-2022 Hyaline casts LM Ql (Urine sed) None seen [LPF] 0-8 [facility] Lymphocytes Auto (Bld) [#/Vo l]Ordered By: Gilson Castro on 08-20-2022 Lymphocytes (Bld) [#/Vol] 1.3 10*3/uL 1.20-4.8 [facility] Lymphocytes/100 WBC Auto (Bl d)Ordered By: Gilson Castro on 08-20-2022 Lymphocytes/100 WBC (Bld) 11.5 % . [facility] MCH Auto (RBC) [Entitic mass ]Ordered By: Gilson Castro on 08-20-2022 MCH (RBC) [Entitic mass] 28.1 pg 25.0-35.0 [facility] MCHC Auto (RBC) [Mass/Vol]Or dered By: Gilson Castro on 08-20-2022 MCHC (RBC) [Mass/Vol] 32.9 g/dL 31.0-37.0 [facility] [facility] MCV Auto (RBC) [Entitic vol] Ordered By: Gilson aCstro on 08-20-2022 MCV (RBC) [Entitic vol] 85.5 fL 78-102 [facility] Magnesiumon 08-20-2022 Magnesium [Mass/Vol] 1.9 mg/dL Normal 1.6-2.6 [facility] Comment on above: Result Comment: PERF ORMED BY:[facility] [place], [place] [phone] MEDICAL DIRECTORNAY SARKAR M.D. Performed By: #### B MP, SCAN CBC, MG ####[facility] [place] [address] [facility] Monocytes Auto (Bld) [#/Vol] Ordered By: Gilson Castro on 08-20-2022 Monocytes (Bld) [#/Vol] 0.4 10*3/uL 0.1-1.00 [facility] Monocytes/100 WBC Auto (Bld) Ordered By: Gilson Castro on 08-20-2022 Monocytes/100 WBC (Bld) 3.7 % . [facility] Neutrophils Auto (Bld) [#/Vo l]Ordered By: Gilson Castro on 08-20-2022 Neutrophils (Bld) [#/Vol] 9.2 10*3/uL 1.2-7.7 [facility] Neutrophils/100 WBC Auto (Bl d)Ordered By: Gilson Castro on 08-20-2022 Neutrophils/100 WBC (Bld) 84.1 % . [facility] Nitrite Test strip Ql (U)Ord ered By: Gilson Castro on 08-20-2022 Nitrite Ql (U) Negative Negative [facility] No Panel InformationOrdered By: Gilson Castro on 08-20-2022 None seen [LPF] 0-8 [facility] Negative Negative [facility] Estimated GFR () > 60 mL/Min [facility] Comment on above: GFR estimated refere nce range: According to KDOQI guidelines, <60 ml/min/1.73m2 is sufficient to diagnose a patient with chronic kidney disease. Pharmacy Creatinine Clearance (Chem 136.96 [facility] Platelet Estimate Normal Normal [facility] Platelet Morphology Comment Normal Normal [facility] Normal Normal [facility] 1.9 mg/dL 1.6-2.6 [facility] No Panel InformationOrdered By: Ravi Arguello on 08-20-2022 SARS Antigen (LFIA) [facility] Phencyclidine Screen Ql (U)O rdered By: Gilson Castro on 08-20-2022 Phencyclidine Ql (U) Negative Negative [facility] Platelet mean volume Auto (B ld) [Entitic vol]Ordered By: Gilson Castro on 08-20-2022 Platelet mean volume (Bld) [Entitic vol] 8.6 fL 6.3-10.7 [facility] Platelets Auto (Bld) [#/Vol] Ordered By: Gilson Castro on 08-20-2022 Platelets (Bld) [#/Vol] 145 10*3/uL 150-450 [facility] Comment on above: Delta: 314 on Protein Auto test strip (U) [Mass/Vol]Ordered By: Gilson Castro on 08-20-2022 Protein (U) [Mass/Vol] Negative Negative [facility] RBC Auto (Bld) [#/Vol]Ordere d By: Gilson Catsro on 08-20-2022 RBC (Bld) [#/Vol] 4.31 10*6/uL 4.10-5.10 [facility] RBC morphologyOrdered By: Pierce Castro on 08-20-2022 RBC morphology finding Nom (Bld) N/A [facility] Scan and CBCon 08-20-2022 Anisocytosis Ql (Bld) Slight Normal [facility] Comment on above: Performed By: #### B MP, SCAN CBC, MG ####[facility] [id number] Basophils (Bld) [#/Vol] 0.0 10*3/uL Normal 0.0-0.1 [facility] Comment on above: Performed By: #### B MP, SCAN CBC, MG ####[facility] Basophils/100 WBC (Bld) 0.4 % Normal . [facility] Comment on above: Performed By: #### B MP, SCAN CBC, MG ####[facility] Eosinophils (Bld) [#/Vol] 0.0 10*3/uL Normal 0.0-0.7 [facility] Comment on above: Performed By: #### B MP, SCAN CBC, MG ####[address] Eosinophils/100 WBC (Bld) 0.3 % Normal . [facility] Comment on above: Performed By: #### B MP, SCAN CBC, MG ####[address] Erythrocyte distribution width (RBC) [Ratio] 13.9 % Normal 11.9-15.3 [facility] Comment on above: Performed By: #### B MP, SCAN CBC, MG ####[address] Hematocrit (Bld) [Volume fraction] 36.8 % Normal 36.0-46.0 [facility] Comment on above: Performed By: #### B MP, SCAN CBC, MG ####[address] Hemoglobin (Bld) [Mass/Vol] 12.1 g/dL Normal 12.0-16.0 [facility] Comment on above: Performed By: #### B MP, SCAN CBC, MG ####[address] Lymphocytes (Bld) [#/Vol] 1.3 10*3/uL Normal 1.20-4.8 [facility] Comment on above: Performed By: #### B MP, SCAN CBC, MG ####[address] Lymphocytes/100 WBC (Bld) 11.5 % Normal . [facility] Comment on above: Performed By: #### B MP, SCAN CBC, MG ####[address] MCH (RBC) [Entitic mass] 28.1 pg Normal 25.0-35.0 [facility] Comment on above: Performed By: #### B MP, SCAN CBC, MG ####[facility] [id number] [place] [address] [facility] MCV (RBC) [Entitic vol] 85.5 fL Normal 78-102 [facility] Comment on above: Performed By: #### B MP, SCAN CBC, MG ####[place] [address] [place] [id number] [facility] Mean Corpuscular HGB Conc 32.9 g/dL Normal 31.0-37.0 [facility] Comment on above: Performed By: #### B MP, SCAN CBC, MG ####[place] [address] [place] [id number] [facility] Monocytes (Bld) [#/Vol] 0.4 10*3/uL Normal 0.1-1.00 [facility] Comment on above: Performed By: #### B MP, SCAN CBC, MG ####[place] [address] [place] [id number] [facility] Monocytes/100 WBC (Bld) 3.7 % Normal . [facility] Comment on above: Performed By: #### B MP, SCAN CBC, MG ####[place] [address] [place] [id number] [facility] Neutrophils (Bld) [#/Vol] 9.2 10*3/uL High 1.2-7.7 [facility] Comment on above: Performed By: #### B MP, SCAN CBC, MG ####[place] [id number] [facility] Neutrophils/100 WBC (Bld) 84.1 % Normal . [facility] Comment on above: Performed By: #### B MP, SCAN CBC, MG ####[place] [address] [place] [id number] [facility] Nucleated RBC/100 WBC (Bld) [Ratio] 0.0 % Normal 0-0.5 [facility] Comment on above: Performed By: #### B MP, SCAN CBC, MG ####[place] [address] [place] [address] [facility] Platelet Estimate Normal Normal Normal [facility] Comment on above: Performed By: #### B MP, SCAN CBC, MG ####[facility] [place] [address] [facility] Platelet mean volume (Bld) [Entitic vol] 8.6 fL Normal 6.3-10.7 [facility] Comment on above: Performed By: #### B MP, SCAN CBC, MG ####[place] [address] [place] [address] [facility] Platelet Morphology Normal Normal Normal [facility] Comment on above: Result Comment: PERF ORMED BY:[address] [place], [place] [phone] MEDICAL DIRECTORNAY SARKAR M.D. Performed By: #### B MP, SCAN CBC, MG ####[place] [address] [place] [address] [facility] Platelets (Bld) [#/Vol] 145 10*3/uL Significant change down 150-450 [facility] Comment on above: Performed By: #### B MP, SCAN CBC, MG ####[address] [address] [facility] RBC (Bld) [#/Vol] 4.31 10*6/uL Normal 4.10-5.10 [facility] Comment on above: Performed By: #### B MP, SCAN CBC, MG ####[address] [address] [facility] WBC (Bld) [#/Vol] 10.9 10*3/uL Normal 4.5-13.5 [facility] Comment on above: Performed By: #### B MP, SCAN CBC, MG ####[address] [address] [facility] Serum or plasma anion gap de terminationOrdered By: Gilson Castro on 08-20-2022 Anion gap [Moles/Vol] 15.2 mmol/L 6.0-15.0 [facility] Serum or plasma calcium tammy urement (mass/volume)Ordered By: Gilson Castro on 08-20-2022 Calcium [Mass/Vol] 8.6 mg/dL 8.2-10.2 [facility] Serum or plasma chloride judy surement (moles/volume)Ordered By: Gilson Castro on 08-20-2022 Chloride [Moles/Vol] 101 mmol/L 95-114 [facility] Serum or plasma glucose tammy urement (mass/volume)Ordered By: Gilson Castro on 08-20-2022 Glucose [Mass/Vol] 96 mg/dL 70-100 [facility] Comment on above: ADA recommended refe rence range Random Glucose Reference Range is dependent on time and content of last meal. Glucose of more than 200 mg/dL in a nonstressed, ambulatory subject supports the diagnosis of Diabetes Mellitus. Serum or plasma potassium me asurement (moles/volume)Ordered By: Gilson Castro on 08-20-2022 Potassium [Moles/Vol] 3.1 mmol/L 3.5-5.1 [facility] Serum or plasma sodium measu rement (moles/volume)Ordered By: Gilson Castro on 08-20-2022 Sodium [Moles/Vol] 135 mmol/L 136-146 [facility] Serum or plasma total carbon dioxide measurement (moles/volume)Ordered By: Gilson Castro on 08-20-2022 CO2 [Moles/Vol] 21.9 mmol/L 22.0-30.0 [facility] Serum or plasma urea nitroge n measurement (mass/volume)Ordered By: Gilson Castro on 08-20-2022 Urea nitrogen [Mass/Vol] 11 mg/dL - [facility] Mey Ag Negativeon 08-20-20 Mey Ag Negative Negative Normal Negative [facility] Comment on above: Result Comment: This is a duplicate Mey SARS Antigen (JOSE A) result to be used for statistical tracking purpose only.PERFORMED BY:[facility] [place], [place] [phone] MEDICAL DIRECTORNAY SARKAR M.D. Performed By: #### S OFSHERON, COVID-19 MEY, COVID 19 [facility] ####[facility] [place] [address] [facility] Specific gravity Auto test s trip (U) [Rel density]Ordered By: Gilson Castro on 08-20-2022 Specific gravity (U) [Rel density] 1.008 1.001-1.03 0 [facility] Squamous epithelial cells de tection in urine sediment by light microscopyOrdered By: Gilson Castro on 08-20-2022 Epithelial cells.squamous LM Ql (Urine sed) 1-2 [HPF] 0-2 [facility] Urine Cultureon 08-20-2022 Bacteria identified Cx Nom (U) Normal [facility] Comment on above: Performed By: #### C UU ####[facility] [id number] [place] [phone] [facility] Urine bacteria detection by automated methodOrdered By: Gilson Castro on 08-20-2022 Bacteria Auto Ql (U) None seen None Seen [facility] Urine clarity by refractomet ry automatedOrdered By: Gilson Castro on 08-20-2022 Clarity Refractometry automated (U) Clear Clear [facility] Urine cocaine detectionOrder ed By: Gilson Castro on 08-20-2022 Cocaine Ql (U) Negative Negative [facility] Urine glucose measurement by automated test strip (mass/volume)Ordered By: Gilson Castro on 08-20-2022 Glucose Auto test strip (U) [Mass/Vol] Normal mg/dL Normal [facility] Urine hemoglobin detection b y automated test stripOrdered By: Gilson Castro on 08-20-2022 Hemoglobin Auto test strip Ql (U) Negative Negative [facility] Urine leukocyte esterase det ection by automated test stripOrdered By: Gilson Castro on 08-20-2022 Leukocyte esterase Auto test strip Ql (U) 1+ Negative [facility] Urobilinogen Auto test strip (U) [Mass/Vol]Ordered By: Gilson Castro on 08-20-2022 Urobilinogen (U) [Mass/Vol] Normal mg/dL Normal [facility] pH Auto test strip (U)Ordere d By: Gilson Castro on 08-20-2022 pH (U) 7.0 [pH] 5.0-9.0 [facility] Automated erythrocytes count in urine sediment (number/area)Ordered By: Gilson Castro on 08-19-2022 RBC Auto (Urine sed) [#/Area] 3-4 [HPF] 0-4 [facility] Automated erythrocytes count in urine sediment (number/area)Ordered By: Colten Fry on 08-19-2022 RBC Auto (Urine sed) [#/Area] None seen [HPF] 0-4 [facility] Automated leukocytes count i n urine sediment (number/area)Ordered By: Gilson Castro on 08-19-2022 WBC Auto (Urine sed) [#/Area] 20-49 [HPF] 0-4 [facility] Automated leukocytes count i n urine sediment (number/area)Ordered By: Colten Fry on 08-19-2022 WBC Auto (Urine sed) [#/Area] 5-9 [HPF] 0-4 [facility] Automated urine hyaline cast s count (number/volume)Ordered By: Gilson Castro on 08-19-2022 Hyaline casts Auto (U) [#/Vol] None seen [LPF] 0-1 [facility] Basophils Auto (Bld) [#/Vol] Ordered By: Gilson Castro on 08-19-2022 Basophils (Bld) [#/Vol] 0.0 10*3/uL 0.0-0.1 [facility] Basophils Auto (Bld) [#/Vol] Ordered By: Colten Fry on 08-19-2022 Basophils (Bld) [#/Vol] 0.0 10*3/uL 0.0-0.1 [facility] Basophils/100 WBC Auto (Bld) Ordered By: Gilson Castro on 08-19-2022 Basophils/100 WBC (Bld) 0.2 % . [facility] Basophils/100 WBC Auto (Bld) Ordered By: Colten Fry on 08-19-2022 Basophils/100 WBC (Bld) 0.4 % . [facility] Bilirubin Test strip Ql (U)O rdered By: Gilson Castro on 08-19-2022 Bilirubin Ql (U) Negative Negative [facility] Bilirubin Test strip Ql (U)O rdered By: Colten Fry on 08-19-2022 Bilirubin Ql (U) Negative Negative [facility] Blood hemoglobin measurement (mass/volume)Ordered By: Gilson Castro on 08-19-2022 Hemoglobin (Bld) [Mass/Vol] 13.2 g/dL 12.0-16.0 [facility] Blood hemoglobin measurement (mass/volume)Ordered By: Colten Fry on 08-19-2022 Hemoglobin (Bld) [Mass/Vol] 12.8 g/dL 12.0-16.0 [facility] Blood leukocytes automated c ount (number/volume)Ordered By: Gilson Castro on 08-19-2022 WBC (Bld) [#/Vol] 15.5 10*3/uL 4.5-13.5 [facility] Blood leukocytes automated c ount (number/volume)Ordered By: Colten Fry on 08-19-2022 WBC (Bld) [#/Vol] 13.5 10*3/uL 4.5-13.5 [facility] Body fluid albumin measureme nt (mass/volume)Ordered By: Gilson Castro on 08-19-2022 Albumin (Body fld) [Mass/Vol] 4.0 g/dL 3.2-5.5 [facility] Body fluid albumin measureme nt (mass/volume)Ordered By: Colten Fry on 08-19-2022 Albumin (Body fld) [Mass/Vol] 4.5 g/dL 3.2-5.5 [facility] COVID-19 Antigenon 2 COVID-[address] [facility] Comment on above: Performed By: #### S MELISSA, COVID-19 MEY ####[facility] [id number] COVID-19 SOFIAOrdered By: Pierce Castro on 08-19-2022 SARS-CoV+SARS-CoV-2 (COVID-19) Ag IA.rapid Ql (Resp) Negative Negative [facility] Comment on above: This is a duplicate Mey SARS Antigen (JOSE A) result to be used for statistical tracking purpose only. Casts typing in urine sedime nt by light microscopyOrdered By: Gilson Castro on 08-19-2022 Casts LM Nom (Urine sed) None seen [LPF] None Seen [facility] Casts typing in urine sedime nt by light microscopyOrdered By: Colten Fry on 08-19-2022 Casts LM Nom (Urine sed) N/A [facility] Color Auto (U)Ordered By: Pierce Castro on 08-19-2022 Color (U) Yellow Yellow [facility] Color Auto (U)Ordered By: Vida Fry on 08-19-2022 Color (U) Yellow Yellow [facility] Complete Blood Count Auto Di ffon 08-19-2022 Basophils (Bld) [#/Vol] 0.0 10*3/uL Normal 0.0-0.1 [facility] Comment on above: Result Comment: PERF ORMED BY:[address] [place], [place] [phone] MEDICAL DIRECTORNAY SARKAR M.D. Performed By: #### C MP, CBC, LIPASE ####[address] Basophils/100 WBC (Bld) 0.2 % Normal . [facility] Comment on above: Performed By: #### C MP, CBC, LIPASE ####[address] Eosinophils (Bld) [#/Vol] 0.0 10*3/uL Normal 0.0-0.7 [facility] Comment on above: Performed By: #### C MP, CBC, LIPASE ####[address] Eosinophils/100 WBC (Bld) 0.2 % Normal . [facility] Comment on above: Performed By: #### C MP, CBC, LIPASE ####[address] Erythrocyte distribution width (RBC) [Ratio] 14.4 % Normal 11.9-15.3 [facility] Comment on above: Performed By: #### C MP, CBC, LIPASE ####[address] Hematocrit (Bld) [Volume fraction] 40.6 % Normal 36.0-46.0 [facility] Comment on above: Performed By: #### C MP, CBC, LIPASE ####[place] [address] Hemoglobin (Bld) [Mass/Vol] 13.2 g/dL Normal 12.0-16.0 [facility] Comment on above: Performed By: #### C MP, CBC, LIPASE ####[address] Lymphocytes (Bld) [#/Vol] 2.3 10*3/uL Normal 1.20-4.8 [facility] Comment on above: Performed By: #### C MP, CBC, LIPASE ####[address] Lymphocytes/100 WBC (Bld) 14.6 % Normal . [facility] Comment on above: Performed By: #### C MP, CBC, LIPASE ####[address] MCH (RBC) [Entitic mass] 27.9 pg Normal 25.0-35.0 [facility] Comment on above: Performed By: #### C MP, CBC, LIPASE ####[address] MCV (RBC) [Entitic vol] 85.6 fL Normal 78-102 [facility] Comment on above: Performed By: #### C MP, CBC, LIPASE ####[address] Mean Corpuscular HGB Conc 32.6 g/dL Normal 31.0-37.0 [facility] Comment on above: Performed By: #### C MP, CBC, LIPASE ####[address] Monocytes (Bld) [#/Vol] 1.1 10*3/uL High 0.1-1.00 [facility] Comment on above: Performed By: #### C MP, CBC, LIPASE ####[address] Monocytes/100 WBC (Bld) 7.3 % Normal . [facility] Comment on above: Performed By: #### C MP, CBC, LIPASE ####[address] [address] [facility] Neutrophils (Bld) [#/Vol] 12.1 10*3/uL High 1.2-7.7 [facility] Comment on above: Performed By: #### C MP, CBC, LIPASE ####[place] [id number] [facility] Neutrophils/100 WBC (Bld) 77.7 % Normal . [facility] Comment on above: Performed By: #### C MP, CBC, LIPASE ####[place] [id number] [facility] Nucleated RBC/100 WBC (Bld) [Ratio] 0.1 % Normal 0-0.5 [facility] Comment on above: Performed By: #### C MP, CBC, LIPASE ####[place] [id number] [facility] Platelet mean volume (Bld) [Entitic vol] 8.8 fL Normal 6.3-10.7 [facility] Comment on above: Performed By: #### C MP, CBC, LIPASE ####[place] [id number] [facility] Platelets (Bld) [#/Vol] 314 10*3/uL Normal 150-450 [facility] Comment on above: Performed By: #### C MP, CBC, LIPASE ####[place] [id number] [facility] RBC (Bld) [#/Vol] 4.74 10*6/uL Normal 4.10-5.10 [facility] Comment on above: Performed By: #### C MP, CBC, LIPASE ####[place] [id number] [place] WBC (Bld) [#/Vol] 15.5 10*3/uL High 4.5-13.5 [facility] Comment on above: Performed By: #### C MP, CBC, LIPASE ####[place] [id number] [place] Basophils (Bld) [#/Vol] 0.0 10*3/uL Normal 0.0-0.1 [facility] Comment on above: Result Comment: PERF ORMED BY:[address] [place], [place] [phone] MEDICAL DIRECTORNAY SARKAR M.D. Performed By: #### C BC, CMP ####[place] [id number] [facility] Basophils/100 WBC (Bld) 0.4 % Normal . [facility] Comment on above: Performed By: #### C BC, CMP ####[address] Eosinophils (Bld) [#/Vol] 0.0 10*3/uL Normal 0.0-0.7 [facility] Comment on above: Performed By: #### C JOSE DAVID, CMP ####[address] Eosinophils/100 WBC (Bld) 0.0 % Normal . [facility] Comment on above: Performed By: #### C JOSE DAVID, CMP ####[address] Erythrocyte distribution width (RBC) [Ratio] 14.3 % Normal 11.9-15.3 [facility] Comment on above: Performed By: #### C BC, CMP ####[address] Hematocrit (Bld) [Volume fraction] 39.5 % Normal 36.0-46.0 [facility] Comment on above: Performed By: #### C BC, CMP ####[address] Hemoglobin (Bld) [Mass/Vol] 12.8 g/dL Normal 12.0-16.0 [facility] Comment on above: Performed By: #### C BC, CMP ####[address] Lymphocytes (Bld) [#/Vol] 1.0 10*3/uL Low 1.20-4.8 [facility] Comment on above: Performed By: #### C BC, CMP ####[address] Lymphocytes/100 WBC (Bld) 7.3 % Normal . [facility] Comment on above: Performed By: #### C BC, CMP ####[place] [id number] [facility] MCH (RBC) [Entitic mass] 27.7 pg Normal 25.0-35.0 [facility] Comment on above: Performed By: #### C BC, CMP ####[address] MCV (RBC) [Entitic vol] 85.7 fL Normal 78-102 [facility] Comment on above: Performed By: #### C BC, CMP ####[address] Mean Corpuscular HGB Conc 32.3 g/dL Normal 31.0-37.0 [facility] Comment on above: Performed By: #### C BC, CMP ####[address] Monocytes (Bld) [#/Vol] 0.3 10*3/uL Normal 0.1-1.00 [facility] Comment on above: Performed By: #### C BC, CMP ####[address] Monocytes/100 WBC (Bld) 2.1 % Normal . [facility] Comment on above: Performed By: #### C BC, CMP ####[address] Neutrophils (Bld) [#/Vol] 12.2 10*3/uL High 1.2-7.7 [facility] Comment on above: Performed By: #### C BC, CMP ####[place] [id number] [facility] Neutrophils/100 WBC (Bld) 90.2 % Normal . [facility] Comment on above: Performed By: #### C BC, CMP ####[address] Nucleated RBC/100 WBC (Bld) [Ratio] 0.0 % Normal 0-0.5 [facility] Comment on above: Performed By: #### C BC, CMP ####[address] Platelet mean volume (Bld) [Entitic vol] 8.7 fL Normal 6.3-10.7 [facility] Comment on above: Performed By: #### C BC, CMP ####[address] Platelets (Bld) [#/Vol] 258 10*3/uL Normal 150-450 [facility] Comment on above: Performed By: #### C BC, CMP ####[address] RBC (Bld) [#/Vol] 4.60 10*6/uL Normal 4.10-5.10 [facility] Comment on above: Performed By: #### C BC, CMP ####[address] WBC (Bld) [#/Vol] 13.5 10*3/uL Normal 4.5-13.5 [facility] Comment on above: Performed By: #### C BC, CMP ####[place] [id number] [facility] Comprehensive Metabolic Pane tushar 08-19-2022 Albumin [Mass/Vol] 4.0 g/dL Normal 3.2-5.5 [facility] Comment on above: Performed By: #### C MP, CBC, LIPASE ####[place] [id number] [facility] Albumin/Globulin [Mass ratio] 1.5 {ratio} Normal [facility] Comment on above: Performed By: #### C MP, CBC, LIPASE ####[address] [place] [address] [facility] ALP [Catalytic activity/Vol] 51 U/L Normal 32-92 [facility] Comment on above: Performed By: #### C MP, CBC, LIPASE ####[place] [id number] [facility] ALT [Catalytic activity/Vol] 17 U/L Normal 10-60 [facility] Comment on above: Performed By: #### C MP, CBC, LIPASE ####[place] [id number] [facility] Anion gap [Moles/Vol] 13.8 mmol/L Normal 6.0-15.0 [facility] Comment on above: Performed By: #### C MP, CBC, LIPASE ####[address] AST [Catalytic activity/Vol] 17 U/L Normal 10-42 [facility] Comment on above: Performed By: #### C MP, CBC, LIPASE ####[address] Bilirubin [Mass/Vol] 0.5 mg/dL Normal 0.3-1.2 [facility] Comment on above: Performed By: #### C MP, CBC, LIPASE ####[address] Calcium [Mass/Vol] 9.1 mg/dL Normal 8.2-10.2 [facility] Comment on above: Performed By: #### C MP, CBC, LIPASE ####[place] [id number] [facility] Chloride [Moles/Vol] 104 mmol/L Normal 95-114 [facility] Comment on above: Performed By: #### C MP, CBC, LIPASE ####[place] [id number] [facility] CO2 [Moles/Vol] 23.3 mmol/L Normal 22.0-30.0 [facility] Comment on above: Performed By: #### C MP, CBC, LIPASE ####[address] [place] [address] [place] Creatinine [Mass/Vol] 0.73 mg/dL Normal 0.44-1.03 [facility] Comment on above: Performed By: #### C MP, CBC, LIPASE ####[place] [id number] [facility] Creatinine Clr Calc Pharmacy 121.95 [facility] Comment on above: Performed By: #### C MP, CBC, LIPASE ####[address] Estimated GFR ( Mahi > 60 [facility] Comment on above: Result Comment: GFR estimated reference range: According to KDOQI guidelines, <60 ml/min/1.73m2 is sufficient to diagnose a patient with chronic kidney disease. Performed By: #### C MP, CBC, LIPASE ####[address] Estimated GFR (Non- Am > 60 [facility] Comment on above: Performed By: #### C MP, CBC, LIPASE ####[address] Globulin (S) [Mass/Vol] 2.7 g/dL [facility] Comment on above: Performed By: #### C MP, CBC, LIPASE ####[address] Glucose [Mass/Vol] 108 mg/dL High 70-100 [facility] Comment on above: Result Comment: [place] Glucose Reference Range is dependent on time and content of last meal. Glucose of more than 200 mg/dL in a nonstressed, ambulatory subject supports the diagnosis of Diabetes Mellitus. ADA recommended reference range Performed By: #### C MP, CBC, LIPASE ####[address] Potassium [Moles/Vol] 3.1 mmol/L Low 3.5-5.1 [facility] Comment on above: Performed By: #### C MP, CBC, LIPASE ####[address] Protein [Mass/Vol] 6.7 g/dL Normal 6.1-7.9 [facility] Comment on above: Performed By: #### C MP, CBC, LIPASE ####[place] [id number] [facility] Sodium [Moles/Vol] 138 mmol/L Normal 136-146 [facility] Comment on above: Performed By: #### C MP, CBC, LIPASE ####[place] [id number] [facility] Urea nitrogen [Mass/Vol] 15 mg/dL Normal 9-23 [facility] Comment on above: Performed By: #### C MP, CBC, LIPASE ####[place] [id number] [facility] Albumin [Mass/Vol] 4.5 g/dL Normal 3.2-5.5 [facility] Comment on above: Performed By: #### C BC, CMP ####[place] [id number] [facility] Albumin/Globulin [Mass ratio] 1.5 {ratio} Normal [facility] Comment on above: Performed By: #### C BC, CMP ####[place] [id number] [facility] ALP [Catalytic activity/Vol] 59 U/L Normal 32-92 [facility] Comment on above: Performed By: #### C BC, CMP ####[place] [id number] [facility] ALT [Catalytic activity/Vol] 16 U/L Normal 10-60 [facility] Comment on above: Performed By: #### C BC, CMP ####[place] [id number] [facility] Anion gap [Moles/Vol] 19.5 mmol/L High 6.0-15.0 [facility] Comment on above: Performed By: #### C BC, CMP ####[place] [id number] [facility] AST [Catalytic activity/Vol] 20 U/L Normal 10-42 [facility] Comment on above: Performed By: #### C BC, CMP ####[facility] [place] [address] [facility] Bilirubin [Mass/Vol] 0.6 mg/dL Normal 0.3-1.2 [facility] Comment on above: Performed By: #### C BC, CMP ####[facility] [id number] [place] [address] [facility] Calcium [Mass/Vol] 9.8 mg/dL Normal 8.2-10.2 [facility] Comment on above: Performed By: #### C BC, CMP ####[facility] [place] [address] [facility] Chloride [Moles/Vol] 107 mmol/L Normal 95-114 [facility] Comment on above: Performed By: #### C BC, CMP ####[place] [id number] [place] [address] [facility] CO2 [Moles/Vol] 19.4 mmol/L Low 22.0-30.0 [facility] Comment on above: Performed By: #### C BC, CMP ####[place] [id number] [place] [address] [facility] Creatinine [Mass/Vol] 0.82 mg/dL Normal 0.44-1.03 [facility] Comment on above: Performed By: #### C BC, CMP ####[facility] [place] [address] [place] [facility] 106.97 [facility] Comment on above: Result Comment: PERF ORMED BY:[address] [place], [place] [phone] MEDICAL TASHI SARKAR M.D. Performed By: #### C BC, CMP ####[place] [id number] [place] [address] [facility] Estimated GFR ( Mahi > 60 Normal [facility] Comment on above: Result Comment: GFR estimated reference range: According to KDOQI guidelines, <60 ml/min/1.73m2 is sufficient to diagnose a patient with chronic kidney disease. Performed By: #### C BC, CMP ####[address] [address] [facility] Estimated GFR (Non- Am > 60 Normal [facility] Comment on above: Performed By: #### C BC, CMP ####[address] [address] [facility] Globulin (S) [Mass/Vol] 3.0 g/dL Normal [facility] Comment on above: Performed By: #### C BC, CMP ####[place] [id number] [facility] Glucose [Mass/Vol] 131 mg/dL High 70-100 [facility] Comment on above: Result Comment: [facility] Glucose Reference Range is dependent on time and content of last meal. Glucose of more than 200 mg/dL in a nonstressed, ambulatory subject supports the diagnosis of Diabetes Mellitus. ADA recommended reference range Performed By: #### C BC, CMP ####[place] [id number] [facility] Potassium [Moles/Vol] 3.9 mmol/L Normal 3.5-5.1 [facility] Comment on above: Performed By: #### C BC, CMP ####[place] [id number] [facility] Protein [Mass/Vol] 7.5 g/dL Normal 6.1-7.9 [facility] Comment on above: Performed By: #### C BC, CMP ####[place] [id number] [facility] Sodium [Moles/Vol] 142 mmol/L Normal 136-146 [facility] Comment on above: Performed By: #### C BC, CMP ####[place] [id number] [facility] Urea nitrogen [Mass/Vol] 14 mg/dL Normal 9-23 [facility] Comment on above: Performed By: #### C BC, CMP ####[place] [id number] [facility] Creatinine and Glomerular fi ltration rate.predicted panel (S/P/Bld)Ordered By: Gilson Castro on 08-19-2022 Creatinine [Mass/Vol] 0.73 mg/dL 0.44-1.03 [facility] Creatinine and Glomerular fi ltration rate.predicted panel (S/P/Bld)Ordered By: Colten Fry on 08-19-2022 Creatinine [Mass/Vol] 0.82 mg/dL 0.44-1.03 [facility] Dipstick and Microscopicon 0 08-19-2022 Appearance (U) Turbid Critically abnormal Clear [facility] Comment on above: Order Comment: Name Collection Type:: Clean-Voided Midstream Performed By: #### A DDONUAPLUS, CUU, UHCG ####[place] [id number] [place] [address] [facility] Bacteria,Urine 2+ High None Seen [facility] Comment on above: Order Comment: Name Collection Type:: Clean-Voided Midstream Performed By: #### A DDONUAPLUS, CUU, UHCG ####[address] [address] [facility] Bilirubin,Urine Negative Normal Negative [facility] Comment on above: Order Comment: Name Collection Type:: Clean-Voided Midstream Performed By: #### A DDONUAPLUS, CUU, UHCG ####[address] [address] [facility] Color (U) Yellow Normal Yellow [facility] Comment on above: Order Comment: Name Collection Type:: Clean-Voided Midstream Performed By: #### A DDONUAPLUS, CUU, UHCG ####[address] [address] [facility] Glucose Ql (U) Normal Normal Normal [facility] Comment on above: Order Comment: Name Collection Type:: Clean-Voided Midstream Performed By: #### A DDONUAPLUS, CUU, UHCG ####[address] [address] [place] Hyaline Casts,Urine None Seen Normal 0-1 [facility] Comment on above: Order Comment: Name Collection Type:: Clean-Voided Midstream Performed By: #### A DDONUAPLUS, CUU, UHCG ####[address] [address] [facility] Ketones Ql (U) 4+ High Negative [facility] Comment on above: Order Comment: Name Collection Type:: Clean-Voided Midstream Performed By: #### A DDONUAPLUS, CUU, UHCG ####[place] [id number] [facility] Leukocyte esterase Test strip Ql (U) 2+ High Negative [facility] Comment on above: Order Comment: Name Collection Type:: Clean-Voided Midstream Performed By: #### A DDONUAPLUS, CUU, UHCG ####[place] [id number] [facility] Nitrite,Urine Negative Normal Negative [facility] Comment on above: Order Comment: Name Collection Type:: Clean-Voided Midstream Performed By: #### A DDONUAPLUS, CUU, UHCG ####[address] [address] [facility] Occult Blood,Urine Negative Normal Negative [facility] Comment on above: Order Comment: Name Collection Type:: Clean-Voided Midstream Performed By: #### A DDONUAPLUS, CUU, UHCG ####[place] [id number] [facility] Other Casts,Urine None Seen Normal None Seen [facility] Comment on above: Order Comment: Name Collection Type:: Clean-Voided Midstream Performed By: #### A DDONUAPLUS, CUU, UHCG ####[place] [id number] [facility] pH (U) 8.0 [pH] Normal 5.0-9.0 [facility] Comment on above: Order Comment: Name Collection Type:: Clean-Voided Midstream Performed By: #### A DDONUAPLUS, CUU, UHCG ####[place] [id number] [facility] Protein (U) [Mass/Vol] 30 mg/dL High Negative [facility] Comment on above: Order Comment: Name Collection Type:: Clean-Voided Midstream Performed By: #### A DDONUAPLUS, CUU, UHCG ####[address] [address] [facility] RBC,Urine 3-4 Normal 0-4 [facility] Comment on above: Order Comment: Name Collection Type:: Clean-Voided Midstream Performed By: #### A DDONUAPLUS, CUU, UHCG ####[address] [address] [facility] Specificy Crane,Urine 1.026 Normal 1.001-1.03 0 [facility] Comment on above: Order Comment: Name Collection Type:: Clean-Voided Midstream Performed By: #### A DDONUAPLUS, CUU, UHCG ####[place] [id number] [facility] Squamous Epithelial Cell,Urine 20-30 High 0-2 [facility] Comment on above: Order Comment: Name Collection Type:: Clean-Voided Midstream Performed By: #### A DDONUAPLUS, CUU, UHCG ####[address] [address] [facility] Urobilinogen,Urine Normal Normal Normal [facility] Comment on above: Order Comment: Name Collection Type:: Clean-Voided Midstream Performed By: #### A DDONUAPLUS, CUU, UHCG ####[address] [address] [facility] WBC,Urine 20-49 High 0-4 [facility] Comment on above: Order Comment: Name Collection Type:: Clean-Voided Midstream Performed By: #### A DDONUAPLUS, CUU, UHCG ####[place] [id number] [facility] Appearance (U) Cloudy Critically abnormal Clear [facility] Comment on above: Order Comment: Name Collection Type:: Clean-Voided Midstream Performed By: #### U HCG, CUU, ADDONUAPLUS ####[place] [id number] [facility] Bacteria,Urine 1+ High None Seen [facility] Comment on above: Order Comment: Name Collection Type:: Clean-Voided Midstream Performed By: #### U HCG, CUU, ADDONUAPLUS ####[place] [id number] [facility] Bilirubin,Urine Negative Normal Negative [facility] Comment on above: Order Comment: Name Collection Type:: Clean-Voided Midstream Performed By: #### U HCG, CUU, ADDONUAPLUS ####[address] Color (U) Yellow Normal Yellow [facility] Comment on above: Order Comment: Name Collection Type:: Clean-Voided Midstream Performed By: #### U HCG, CUU, ADDONUAPLUS ####[address] Glucose Ql (U) Normal Normal Normal [facility] Comment on above: Order Comment: Name Collection Type:: Clean-Voided Midstream Performed By: #### U HCG, CUU, ADDONUAPLUS ####[address] Hyaline Casts,Urine None Seen Normal 0-8 [facility] Comment on above: Order Comment: Name Collection Type:: Clean-Voided Midstream Performed By: #### U HCG, CUU, ADDONUAPLUS ####[address] Ketones Ql (U) 3+ High Negative [facility] Comment on above: Order Comment: Name Collection Type:: Clean-Voided Midstream Performed By: #### U HCG, CUU, ADDONUAPLUS ####[place] [id number] [facility] Leukocyte esterase Test strip Ql (U) 1+ High Negative [facility] Comment on above: Order Comment: Name Collection Type:: Clean-Voided Midstream Performed By: #### U HCG, CUU, ADDONUAPLUS ####[address] [address] [facility] Nitrite,Urine Negative Normal Negative [facility] Comment on above: Order Comment: Name Collection Type:: Clean-Voided Midstream Performed By: #### U HCG, CUU, ADDONUAPLUS ####[address] [address] [facility] Occult Blood,Urine Negative Normal Negative [facility] Comment on above: Order Comment: Name Collection Type:: Clean-Voided Midstream Performed By: #### U HCG, CUU, ADDONUAPLUS ####[place] [id number] [facility] pH (U) 6.0 [pH] Normal 5.0-9.0 [facility] Comment on above: Order Comment: Name Collection Type:: Clean-Voided Midstream Performed By: #### U HCG, CUU, ADDONUAPLUS ####[address] Protein,Urine Trace High Negative [facility] Comment on above: Order Comment: Name Collection Type:: Clean-Voided Midstream Performed By: #### U HCG, CUU, ADDONUAPLUS ####[place] [id number] [facility] RBC,Urine None Seen Normal 0-4 [facility] Comment on above: Order Comment: Name Collection Type:: Clean-Voided Midstream Performed By: #### U HCG, CUU, ADDONUAPLUS ####[place] [id number] [facility] Specificy Crane,Urine 1.023 Normal 1.001-1.03 0 [facility] Comment on above: Order Comment: Name Collection Type:: Clean-Voided Midstream Performed By: #### U HCG, CUU, ADDONUAPLUS ####[address] [address] [facility] Squamous Epithelial Cell,Urine 20-30 High 0-2 [facility] Comment on above: Order Comment: Name Collection Type:: Clean-Voided Midstream Performed By: #### U HCG, CUU, ADDONUAPLUS ####[facility] [id number] Urobilinogen,Urine Normal Normal Normal [facility] Comment on above: Order Comment: Name Collection Type:: Clean-Voided Midstream Performed By: #### U HCG, CUU, ADDONUAPLUS ####[place] [id number] WBC,Urine 5-9 High 0-4 [facility] Comment on above: Order Comment: Name Collection Type:: Clean-Voided Midstream Performed By: #### U HCG, CUU, ADDONUAPLUS ####[place] [id number] ECG 12 lead ECGon 08-19-2022 ECG 12 lead ECG Normal [facility] Eosinophils Auto (Bld) [#/Vo l]Ordered By: Gilson Castro on 08-19-2022 Eosinophils (Bld) [#/Vol] 0.0 10*3/uL 0.0-0.7 [facility] Eosinophils Auto (Bld) [#/Vo l]Ordered By: Colten Fry on 08-19-2022 Eosinophils (Bld) [#/Vol] 0.0 10*3/uL 0.0-0.7 [facility] Eosinophils/100 WBC Auto (Bl d)Ordered By: Gilson Castro on 08-19-2022 Eosinophils/100 WBC (Bld) 0.2 % . [facility] Eosinophils/100 WBC Auto (Bl d)Ordered By: Colten Fry on 08-19-2022 Eosinophils/100 WBC (Bld) 0.0 % . [facility] Erythrocyte distribution wid th Auto (RBC) [Ratio]Ordered By: Gilson Castro on 08-19-2022 Erythrocyte distribution width (RBC) [Ratio] 14.4 % 11.9-15.3 [facility] Erythrocyte distribution wid th Auto (RBC) [Ratio]Ordered By: Colten Fry on 08-19-2022 Erythrocyte distribution width (RBC) [Ratio] 14.3 % 11.9-15.3 [facility] Estimated glomerular filtrat ion rate (GFR) non- AmericanOrdered By: Gilson Castro on 08-19-2022 GFR/1.73 sq M.predicted among non-blacks MDRD (S/P/Bld) [Vol rate/Area] > 60 mL/Min [facility] Estimated glomerular filtrat ion rate (GFR) non- AmericanOrdered By: Colten Fry on 08-19-2022 GFR/1.73 sq M.predicted among non-blacks MDRD (S/P/Bld) [Vol rate/Area] > 60 mL/Min [facility] Globulin Calc (S) [Mass/Vol] Ordered By: Gilson Castro on 08-19-2022 Globulin (S) [Mass/Vol] 2.7 g/dL [facility] Globulin Calc (S) [Mass/Vol] Ordered By: Colten Fry on 08-19-2022 Globulin (S) [Mass/Vol] 3.0 g/dL [facility] HCG ( test) IA.rapi d Ql (U)Ordered By: Gilson Castro on 08-19-2022 HCG ( test) Ql (U) Negative [facility] HCG ( test) IA.rapi d Ql (U)Ordered By: Colten Fry on 08-19-2022 HCG ( test) Ql (U) Negative [facility] HCG,Urineon 08-19-2022 Beta HCG ( test) Ql (U) Negative Normal [facility] Comment on above: Order Comment: Name Collection Type:: Clean-Voided Midstream Result Comment: PERF ORMED BY:[place] [address] [place] [id number] MEDICAL DIRECTORNAY SARKAR M.D. Performed By: #### A ALIREZA CASILLAS [facility] ####[place] [address] [place] [address] [facility] Beta HCG ( test) Ql (U) Negative Normal [facility] Comment on above: Order Comment: Name Collection Type:: Clean-Voided Midstream Result Comment: PERF ORMED BY:[place] [address] [place], [place] [phone] MEDICAL DIRECTORNAY SARKAR M.D. Performed By: #### U HCG, CUU, ADDONUAPLUS ####[facility] [place] [address] [facility] Hematocrit Auto (Bld) [Volum e fraction]Ordered By: Gilson Castro on 08-19-2022 Hematocrit (Bld) [Volume fraction] 40.6 % 36.0-46.0 [facility] Hematocrit Auto (Bld) [Volum e fraction]Ordered By: Colten Fry on 08-19-2022 Hematocrit (Bld) [Volume fraction] 39.5 % 36.0-46.0 [facility] Ketones Auto test strip (U) [Mass/Vol]Ordered By: Gilson Castro on 08-19-2022 Ketones (U) [Mass/Vol] 4+ Negative [facility] Ketones Auto test strip (U) [Mass/Vol]Ordered By: Colten Fry on 08-19-2022 Ketones (U) [Mass/Vol] 3+ Negative [facility] Laboratory - Chemistry and C hemistry - challengeOrdered By: Gilson Castro on 08-19-2022 Lipase [Catalytic activity/Vol] 24.0 U/L [facility] Magnesium [Mass/Vol] 2.0 mg/dL 1.6-2.6 [facility] Laboratory - Hematology and Cell countsOrdered By: Gilson Castro on 08-19-2022 Nucleated RBC/100 WBC (Bld) [Ratio] 0.1 % 0-0.5 [facility] Laboratory - Hematology and Cell countsOrdered By: Colten Fry on 08-19-2022 Nucleated RBC/100 WBC (Bld) [Ratio] 0.0 % 0-0.5 [facility] Laboratory - UrinalysisOrder ed By: Colten Fry on 08-19-2022 Hyaline casts LM Ql (Urine sed) None seen [LPF] 0-8 [facility] Lipaseon 08-19-2022 Lipase [Catalytic activity/Vol] 24.0 U/L Normal [facility] Comment on above: Result Comment: PERF ORMED BY:[address] [place], [place] [id number] MEDICAL DIRECTORNAY SARKAR M.D. Performed By: #### C MP, CBC, LIPASE ####[facility] [address] [place] [address] [facility] Lymphocytes Auto (Bld) [#/Vo l]Ordered By: Gilson Castro on 08-19-2022 Lymphocytes (Bld) [#/Vol] 2.3 10*3/uL 1.20-4.8 [facility] Lymphocytes Auto (Bld) [#/Vo l]Ordered By: Colten Fry on 08-19-2022 Lymphocytes (Bld) [#/Vol] 1.0 10*3/uL 1.20-4.8 [facility] Lymphocytes/100 WBC Auto (Bl d)Ordered By: Gilson Castro on 08-19-2022 Lymphocytes/100 WBC (Bld) 14.6 % . [facility] Lymphocytes/100 WBC Auto (Bl d)Ordered By: Colten Fry on 08-19-2022 Lymphocytes/100 WBC (Bld) 7.3 % . [facility] MCH Auto (RBC) [Entitic mass ]Ordered By: Gilson Castro on 08-19-2022 MCH (RBC) [Entitic mass] 27.9 pg 25.0-35.0 [facility] MCH Auto (RBC) [Entitic mass ]Ordered By: Colten Fry on 08-19-2022 MCH (RBC) [Entitic mass] 27.7 pg 25.0-35.0 [facility] MCHC Auto (RBC) [Mass/Vol]Or dered By: Gilson Castro on 08-19-2022 MCHC (RBC) [Mass/Vol] 32.6 g/dL 31.0-37.0 [facility] MCHC Auto (RBC) [Mass/Vol]Or dered By: Colten Fry on 08-19-2022 MCHC (RBC) [Mass/Vol] 32.3 g/dL 31.0-37.0 [facility] MCV Auto (RBC) [Entitic vol] Ordered By: Gilson Castro on 08-19-2022 MCV (RBC) [Entitic vol] 85.6 fL 78-102 [facility] MCV Auto (RBC) [Entitic vol] Ordered By: Colten Fry on 08-19-2022 MCV (RBC) [Entitic vol] 85.7 fL 78-102 [facility] Magnesiumon 08-19-2022 Magnesium [Mass/Vol] 2.0 mg/dL Normal 1.6-2.6 [facility] Comment on above: Result Comment: PERF ORMED BY:[facility] [place], [place] [id number] MEDICAL DIRECTORNAY SARKAR M.D. Performed By: #### M G ####[facility] [place] [address] [facility] Monocytes Auto (Bld) [#/Vol] Ordered By: Gilson Castro on 08-19-2022 Monocytes (Bld) [#/Vol] 1.1 10*3/uL 0.1-1.00 [facility] Monocytes Auto (Bld) [#/Vol] Ordered By: Colten Fry on 08-19-2022 Monocytes (Bld) [#/Vol] 0.3 10*3/uL 0.1-1.00 [facility] Monocytes/100 WBC Auto (Bld) Ordered By: Gilson Castro on 08-19-2022 Monocytes/100 WBC (Bld) 7.3 % . [facility] Monocytes/100 WBC Auto (Bld) Ordered By: Colten Fry on 08-19-2022 Monocytes/100 WBC (Bld) 2.1 % . [facility] Neutrophils Auto (Bld) [#/Vo l]Ordered By: Gilson Castro on 08-19-2022 Neutrophils (Bld) [#/Vol] 12.1 10*3/uL 1.2-7.7 [facility] Neutrophils Auto (Bld) [#/Vo l]Ordered By: Colten Fry on 08-19-2022 Neutrophils (Bld) [#/Vol] 12.2 10*3/uL 1.2-7.7 [facility] Neutrophils/100 WBC Auto (Bl d)Ordered By: Gilson Castro on 08-19-2022 Neutrophils/100 WBC (Bld) 77.7 % . [facility] Neutrophils/100 WBC Auto (Bl d)Ordered By: Colten Fry on 08-19-2022 Neutrophils/100 WBC (Bld) 90.2 % . [facility] Nitrite Test strip Ql (U)Ord ered By: Gilson Castro on 08-19-2022 Nitrite Ql (U) Negative Negative [facility] Nitrite Test strip Ql (U)Ord ered By: Colten Fry on 08-19-2022 Nitrite Ql (U) Negative Negative [facility] No Panel InformationOrdered By: Gilson Castro on 08-19-2022 Estimated GFR () > 60 mL/Min [facility] Comment on above: GFR estimated refere nce range: According to KDOQI guidelines, <60 ml/min/1.73m2 is sufficient to diagnose a patient with chronic kidney disease. Pharmacy Creatinine Clearance (Chem 121.95 [facility] > 60 mL/Min [facility] 2.0 mg/dL 1.6-2.6 [facility] 24.0 U/L [facility] 121.95 [facility] 15.5 10*3/uL 4.5-13.5 [facility] 0.1 % 0-0.5 [facility] SARS Antigen (LFIA) [facility] No Panel InformationOrdered By: Colten Fry on 08-19-2022 None seen [LPF] 0-8 [facility] Estimated GFR () > 60 mL/Min [facility] Comment on above: GFR estimated refere nce range: According to KDOQI guidelines, <60 ml/min/1.73m2 is sufficient to diagnose a patient with chronic kidney disease. Pharmacy Creatinine Clearance (Chem 106.97 [facility] 13.5 10*3/uL 4.5-13.5 [facility] 0.0 % 0-0.5 [facility] > 60 mL/Min [facility] 106.97 [facility] Platelet mean volume Auto (B ld) [Entitic vol]Ordered By: Gilson Castro on 08-19-2022 Platelet mean volume (Bld) [Entitic vol] 8.8 fL 6.3-10.7 [facility] Platelet mean volume Auto (B ld) [Entitic vol]Ordered By: Colten Fry on 08-19-2022 Platelet mean volume (Bld) [Entitic vol] 8.7 fL 6.3-10.7 [facility] Platelets Auto (Bld) [#/Vol] Ordered By: Gilson Castro on 08-19-2022 Platelets (Bld) [#/Vol] 314 10*3/uL 150-450 [facility] Platelets Auto (Bld) [#/Vol] Ordered By: Colten Fry on 08-19-2022 Platelets (Bld) [#/Vol] 258 10*3/uL 150-450 [facility] Protein Auto test strip (U) [Mass/Vol]Ordered By: Gilson Castro on 08-19-2022 Protein (U) [Mass/Vol] 30 mg/dL Negative [facility] [facility] Protein Auto test strip (U) [Mass/Vol]Ordered By: Colten Fry on 08-19-2022 Protein (U) [Mass/Vol] Trace mg/dL Negative [facility] Protein [Mass/volume] in Ser um or PlasmaOrdered By: Gilson Castro on 08-19-2022 Protein [Mass/Vol] 6.7 g/dL 6.1-7.9 [facility] Protein [Mass/volume] in Ser um or PlasmaOrdered By: Colten Fry on 08-19-2022 Protein [Mass/Vol] 7.5 g/dL 6.1-7.9 [facility] RBC Auto (Bld) [#/Vol]Ordere d By: Gilson Castro on 08-19-2022 RBC (Bld) [#/Vol] 4.74 10*6/uL 4.10-5.10 [facility] RBC Auto (Bld) [#/Vol]Ordere d By: Colten Fry on 08-19-2022 RBC (Bld) [#/Vol] 4.60 10*6/uL 4.10-5.10 [facility] Serum or plasma alanine florez otransferase measurement without P-5'-P (enzymatic activiOrdered By: Gilson Castro on 08-19-2022 ALT No additional P-5'-P [Catalytic activity/Vol] 17 U/L 10-60 [facility] Serum or plasma alanine florez otransferase measurement without P-5'-P (enzymatic activiOrdered By: Colten Fry on 08-19-2022 ALT No additional P-5'-P [Catalytic activity/Vol] 16 U/L [facility] Serum or plasma albumin/glob ulin mass ratioOrdered By: Gilson Castro on 08-19-2022 Albumin/Globulin [Mass ratio] 1.5 {ratio} [facility] Serum or plasma albumin/glob ulin mass ratioOrdered By: Colten Fry on 08-19-2022 Albumin/Globulin [Mass ratio] 1.5 {ratio} [facility] Serum or plasma alkaline justin sphatase measurement (enzymatic activity/volume)Ordered By: Gilson Castro on 08-19-2022 ALP [Catalytic activity/Vol] 51 U/L [facility] Serum or plasma alkaline justin sphatase measurement (enzymatic activity/volume)Ordered By: Colten Fry on 08-19-2022 ALP [Catalytic activity/Vol] 59 U/L [facility] Serum or plasma anion gap de terminationOrdered By: Gilson Castro on 08-19-2022 Anion gap [Moles/Vol] 13.8 mmol/L 6.0-15.0 [facility] Serum or plasma anion gap de terminationOrdered By: Colten Fry on 08-19-2022 Anion gap [Moles/Vol] 19.5 mmol/L 6.0-15.0 [facility] Serum or plasma aspartate am inotransferase measurement (enzymatic activity/volume)Ordered By: Gilson Castro on 08-19-2022 AST [Catalytic activity/Vol] 17 U/L [facility] Serum or plasma aspartate am inotransferase measurement (enzymatic activity/volume)Ordered By: Colten Fry on 08-19-2022 AST [Catalytic activity/Vol] 20 U/L [facility] Serum or plasma calcium tammy urement (mass/volume)Ordered By: Gilson Castro on 08-19-2022 Calcium [Mass/Vol] 9.1 mg/dL 8.2-10.2 [facility] Serum or plasma calcium tammy urement (mass/volume)Ordered By: Colten Fry on 08-19-2022 Calcium [Mass/Vol] 9.8 mg/dL 8.2-10.2 [facility] Serum or plasma chloride judy surement (moles/volume)Ordered By: Gilson Castro on 08-19-2022 Chloride [Moles/Vol] 104 mmol/L 95-114 [facility] Serum or plasma chloride judy surement (moles/volume)Ordered By: Colten Fry on 08-19-2022 Chloride [Moles/Vol] 107 mmol/L 95-114 [facility] Serum or plasma creatinine m easurement with calculation of estimated glomerular filtrOrdered By: Gilson Castro on 08-19-2022 Creatinine and Glomerular filtration rate.predicted panel (S/P/Bld) 0.73 mg/dL 0.44-1.03 [facility] Serum or plasma creatinine m easurement with calculation of estimated glomerular filtrOrdered By: Colten Fry on 08-19-2022 Creatinine and Glomerular filtration rate.predicted panel (S/P/Bld) 0.82 mg/dL 0.44-1.03 [facility] Serum or plasma glucose tammy urement (mass/volume)Ordered By: Gilson Castro on 08-19-2022 Glucose [Mass/Vol] 108 mg/dL 70-100 [facility] Comment on above: ADA recommended refe rence range Random Glucose Reference Range is dependent on time and content of last meal. Glucose of more than 200 mg/dL in a nonstressed, ambulatory subject supports the diagnosis of Diabetes Mellitus. ADA recommended refe rence rangeRandom Glucose Reference Range is dependent on time and content of last meal. Glucose of more than 200 mg/dL in a nonstressed, ambulatory subject supports the diagnosis of Diabetes Mellitus. Serum or plasma glucose tammy urement (mass/volume)Ordered By: Colten Fry on 08-19-2022 Glucose [Mass/Vol] 131 mg/dL 70-100 [facility] Comment on above: ADA recommended refe rence range Random Glucose Reference Range is dependent on time and content of last meal. Glucose of more than 200 mg/dL in a nonstressed, ambulatory subject supports the diagnosis of Diabetes Mellitus. ADA recommended refe rence rangeRandom Glucose Reference Range is dependent on time and content of last meal. Glucose of more than 200 mg/dL in a nonstressed, ambulatory subject supports the diagnosis of Diabetes Mellitus. Serum or plasma potassium me asurement (moles/volume)Ordered By: Gilson Castro on 08-19-2022 Potassium [Moles/Vol] 3.1 mmol/L 3.5-5.1 [facility] Serum or plasma potassium me asurement (moles/volume)Ordered By: Colten Fry on 08-19-2022 Potassium [Moles/Vol] 3.9 mmol/L 3.5-5.1 [facility] Serum or plasma sodium measu rement (moles/volume)Ordered By: Gilson Castro on 08-19-2022 Sodium [Moles/Vol] 138 mmol/L 136-146 [facility] Serum or plasma sodium measu rement (moles/volume)Ordered By: Colten Fry on 08-19-2022 Sodium [Moles/Vol] 142 mmol/L 136-146 [facility] Serum or plasma total biliru bin measurement (mass/volume)Ordered By: Gilson Castro on 08-19-2022 Bilirubin [Mass/Vol] 0.5 mg/dL 0.3-1.2 [facility] Serum or plasma total biliru bin measurement (mass/volume)Ordered By: Colten Fry on 08-19-2022 Bilirubin [Mass/Vol] 0.6 mg/dL 0.3-1.2 [facility] Serum or plasma total carbon dioxide measurement (moles/volume)Ordered By: Gilson Castro on 08-19-2022 CO2 [Moles/Vol] 23.3 mmol/L 22.0-30.0 [facility] Serum or plasma total carbon dioxide measurement (moles/volume)Ordered By: Colten Fry on 08-19-2022 CO2 [Moles/Vol] 19.4 mmol/L 22.0-30.0 [facility] Serum or plasma urea nitroge n measurement (mass/volume)Ordered By: Gilson Castro on 08-19-2022 Urea nitrogen [Mass/Vol] 15 mg/dL 08-20 [facility] Serum or plasma urea nitroge n measurement (mass/volume)Ordered By: Colten Fry on 08-19-2022 Urea nitrogen [Mass/Vol] 14 mg/dL 08-20 [facility] Mey Ag Negativeon 08-19-20 Mey Ag Negative Negative Normal Negative [facility] Comment on above: Result Comment: This is a duplicate Mey SARS Antigen (JOSE A) result to be used for statistical tracking purpose only.PERFORMED BY:[address] [place] [phone] MEDICAL DIRECTORNAY SARKAR M.D. Performed By: #### S OFSHERON, COVID-19 MEY ####[facility] [address] [place] [address] [facility] Specific gravity Auto test s trip (U) [Rel density]Ordered By: Gilson Castro on 08-19-2022 Specific gravity (U) [Rel density] 1.026 1.001-1.03 0 [facility] Specific gravity Auto test s trip (U) [Rel density]Ordered By: Colten Fry on 08-19-2022 Specific gravity (U) [Rel density] 1.023 1.001-1.03 0 [facility] Squamous epithelial cells de tection in urine sediment by light microscopyOrdered By: Gilson Castro on 08-19-2022 Epithelial cells.squamous LM Ql (Urine sed) 20-30 [HPF] 0-2 [facility] Squamous epithelial cells de tection in urine sediment by light microscopyOrdered By: Colten Fry on 08-19-2022 Epithelial cells.squamous LM Ql (Urine sed) 20-30 [HPF] 0-2 [facility] Urine Cultureon 08-19-2022 Bacteria identified Cx Nom (U) Normal [facility] Comment on above: Performed By: #### A DDONUAPLUS, CUU, UHCG ####[address] [address] [place] Bacteria identified Cx Nom (U) Normal [facility] Comment on above: Performed By: #### U HCG, CUU, ADDONUAPLUS ####[address] [address] [facility] Urine bacteria detection by automated methodOrdered By: Gilson Castro on 08-19-2022 Bacteria Auto Ql (U) 2+ None Seen [facility] Urine bacteria detection by automated methodOrdered By: Colten Fry on 08-19-2022 Bacteria Auto Ql (U) 1+ None Seen [facility] Urine clarity by refractomet ry automatedOrdered By: Gilson Castro on 08-19-2022 Clarity Refractometry automated (U) Turbid Clear [facility] Urine clarity by refractomet ry automatedOrdered By: Colten Fry on 08-19-2022 Clarity Refractometry automated (U) Cloudy Clear [facility] Urine glucose measurement by automated test strip (mass/volume)Ordered By: Gilson Castro on 08-19-2022 Glucose Auto test strip (U) [Mass/Vol] Normal mg/dL Normal [facility] Urine glucose measurement by automated test strip (mass/volume)Ordered By: Colten Fry on 08-19-2022 Glucose Auto test strip (U) [Mass/Vol] Normal mg/dL Normal [facility] Urine hemoglobin detection b y automated test stripOrdered By: Gilson Castro on 08-19-2022 Hemoglobin Auto test strip Ql (U) Negative Negative [facility] Urine hemoglobin detection b y automated test stripOrdered By: Colten Fry on 08-19-2022 Hemoglobin Auto test strip Ql (U) Negative Negative [facility] Urine leukocyte esterase det ection by automated test stripOrdered By: Gilson Castro on 08-19-2022 Leukocyte esterase Auto test strip Ql (U) 2+ Negative [facility] Urine leukocyte esterase det ection by automated test stripOrdered By: Colten Fry on 08-19-2022 Leukocyte esterase Auto test strip Ql (U) 1+ Negative [facility] Urobilinogen Auto test strip (U) [Mass/Vol]Ordered By: Gilson Castro on 08-19-2022 Urobilinogen (U) [Mass/Vol] Normal mg/dL Normal [facility] Urobilinogen Auto test strip (U) [Mass/Vol]Ordered By: Colten Fry on 08-19-2022 Urobilinogen (U) [Mass/Vol] Normal mg/dL Normal [facility] pH Auto test strip (U)Ordere d By: Gilson Castro on 08-19-2022 pH (U) 8.0 [pH] 5.0-9.0 [facility] pH Auto test strip (U)Ordere d By: Colten Fry on 08-19-2022 pH (U) 6.0 [pH] 5.0-9.0 [facility] COVID-19 Antigenon 2 COVID-[address] [facility] Comment on above: Performed By: #### S OFIANEG, COVID-19 MEY ####[facility] [place] [address] [facility] COVID-19 SOFIAOrdered By: Lul Rivera on 08-18-2022 SARS-CoV+SARS-CoV-2 (COVID-19) Ag IA.rapid Ql (Resp) Negative Negative [facility] Comment on above: This is a duplicate Mey SARS Antigen (JOSE A) result to be used for statistical tracking purpose only. ECG 12 lead ECGon 08-18-2022 ECG 12 lead ECG Normal [facility] No Panel InformationOrdered By: Joss Rivera on 08-18-2022 SARS Antigen (LFIA) [facility] Mey Ag Negativeon 08-18-20 22 Mey Ag Negative Negative Normal Negative [facility] Comment on above: Result Comment: This is a duplicate Mey SARS Antigen (JOSE A) result to be used for statistical tracking purpose only.PERFORMED BY:[facility] [place], [place] [phone] MEDICAL DIRECTORNAY SARKAR M.D. Performed By: #### S OFJOSEPHNANCY, COVID-19 MEY ####[facility] [place] [address] [facility] Basophils Auto (Bld) [#/Vol] Ordered By: Modesta Chand on 06-25-2022 Basophils (Bld) [#/Vol] 0.1 10*3/uL 0.0-0.1 [facility] Basophils/100 WBC Auto (Bld) Ordered By: Modesta Chand on 06-25-2022 Basophils/100 WBC (Bld) 1.2 % . [facility] Blood hemoglobin measurement (mass/volume)Ordered By: Modesta Chand on 06-25-2022 Hemoglobin (Bld) [Mass/Vol] 13.8 g/dL 12.0-16.0 [facility] Blood leukocytes automated c ount (number/volume)Ordered By: Modesta Chand on 06-25-2022 WBC (Bld) [#/Vol] 7.9 10*3/uL 4.5-13.5 [facility] Body fluid albumin measureme nt (mass/volume)Ordered By: Modesta Chand on 06-25-2022 Albumin (Body fld) [Mass/Vol] 4.5 g/dL 3.2-5.[address] [facility] [address] biopsyOrdered By: Yasmine Chand on 06-25-2022 Transferrin [Mass/Vol] 328 mg/dL 180-380 [facility] Creatinine and Glomerular fi ltration rate.predicted panel (S/P/Bld)Ordered By: Modesta Chand on 06-25-2022 Creatinine [Mass/Vol] 0.67 mg/dL 0.44-1.03 [facility] Eosinophils Auto (Bld) [#/Vo l]Ordered By: Modesta Chand on 06-25-2022 Eosinophils (Bld) [#/Vol] 0.6 10*3/uL 0.0-0.7 [facility] Eosinophils/100 WBC Auto (Bl d)Ordered By: Modesta Chand on 06-25-2022 Eosinophils/100 WBC (Bld) 7.2 % . [facility] Erythrocyte distribution wid th Auto (RBC) [Ratio]Ordered By: Modesta Chand on 06-25-2022 Erythrocyte distribution width (RBC) [Ratio] 13.6 % 11.9-15.3 [facility] Estimated glomerular filtrat ion rate (GFR) non- AmericanOrdered By: Modesta Chand on 06-25-2022 GFR/1.73 sq M.predicted among non-blacks MDRD (S/P/Bld) [Vol rate/Area] > 60 mL/Min [facility] Ferritin [Mass/volume] in Se rum or PlasmaOrdered By: Modesta Chand on 06-25-2022 Ferritin [Mass/Vol] 28.5 ng/mL 11-306.8 [facility] Globulin Calc (S) [Mass/Vol] Ordered By: Modesta Chand on 06-25-2022 Globulin (S) [Mass/Vol] 2.5 g/dL [facility] Hematocrit Auto (Bld) [Volum e fraction]Ordered By: Modesta Chand on 06-25-2022 Hematocrit (Bld) [Volume fraction] 42.3 % 36.0-46.0 [facility] Iron [Mass/volume] in Serum or PlasmaOrdered By: Modesta Chand on 06-25-2022 Iron [Mass/Vol] 52 ug/dL 40-150 [facility] Iron binding capacity [Mass/ volume] in Serum or PlasmaOrdered By: Modesta Chand on 06-25-2022 Iron binding capacity [Mass/Vol] 459 ug/dL 255-450 [facility] Iron saturation [Mass Fracti on] in Serum or PlasmaOrdered By: Modesta Chand on 06-25-2022 Iron saturation [Mass fraction] 11.0 % 20-50 [facility] Laboratory - Hematology and Cell countsOrdered By: Modesta Chand on 06-25-2022 Nucleated RBC/100 WBC (Bld) [Ratio] 0.0 % 0-0.5 [facility] Lymphocytes Auto (Bld) [#/Vo l]Ordered By: Modesta Chand on 06-25-2022 Lymphocytes (Bld) [#/Vol] 2.1 10*3/uL 1.20-4.8 [facility] Lymphocytes/100 WBC Auto (Bl d)Ordered By: Modesta Chand on 06-25-2022 Lymphocytes/100 WBC (Bld) 26.9 % . [facility] MCH Auto (RBC) [Entitic mass ]Ordered By: Modesta Chand on 06-25-2022 MCH (RBC) [Entitic mass] 28.1 pg 25.0-35.0 [facility] MCHC Auto (RBC) [Mass/Vol]Or dered By: Modesta Chand on 06-25-2022 MCHC (RBC) [Mass/Vol] 32.7 g/dL 31.0-37.0 [facility] MCV Auto (RBC) [Entitic vol] Ordered By: Modesta Chand on 06-25-2022 MCV (RBC) [Entitic vol] 85.8 fL 78-102 [facility] Monocytes Auto (Bld) [#/Vol] Ordered By: Modesta Chand on 06-25-2022 Monocytes (Bld) [#/Vol] 0.6 10*3/uL 0.1-1.00 [facility] Monocytes/100 WBC Auto (Bld) Ordered By: Modesta Chand on 06-25-2022 Monocytes/100 WBC (Bld) 7.2 % . [facility] Neutrophils Auto (Bld) [#/Vo l]Ordered By: Modesta Chand on 06-25-2022 Neutrophils (Bld) [#/Vol] 4.5 10*3/uL 1.2-7.7 [facility] Neutrophils/100 WBC Auto (Bl d)Ordered By: Modesta Chand on 06-25-2022 Neutrophils/100 WBC (Bld) 57.5 % . [facility] No Panel InformationOrdered By: Modesta Chand on 06-25-2022 25-Hydroxy Vitamin D Total 35.9 ng/mL 30-100 [facility] Comment on above: VITAMIN D STATUS 25( [place])VITAMIN D RANGE (ng/mL) Deficient <20 Insufficient 20 to <30 Sufficient 30 to 100 Reference: Danica MF,Chayo NC, Sony ZULETA, et al. Evaluation,treatment, and prevention of vitamin D deficiency; an Endocrine Society clinical practice guideline. JCEM. 2010; 96(7):1911-30. Absolute Reticulocyte Count 0.066 10*6/uL 0.024-0.08 4 [facility] Estimated GFR () > 60 mL/Min [facility] Comment on above: GFR estimated refere nce range: According to KDOQI guidelines, <60 ml/min/1.73m2 is sufficient to diagnose a patient with chronic kidney disease. Percent Reticulocyte Count 1.3 % 0.5-1.5 [facility] Creatinine Clearance (Chem N/A [facility] Platelet mean volume Auto (B ld) [Entitic vol]Ordered By: Modesta Chand on 06-25-2022 Platelet mean volume (Bld) [Entitic vol] 9.0 fL 6.3-10.7 [facility] Platelets Auto (Bld) [#/Vol] Ordered By: Modesta Chand on 06-25-2022 Platelets (Bld) [#/Vol] 263 10*3/uL 150-450 [facility] Protein [Mass/volume] in Ser um or PlasmaOrdered By: Modesta Chand on 06-25-2022 Protein [Mass/Vol] 7.0 g/dL 6.1-7.9 [facility] RBC Auto (Bld) [#/Vol]Ordere d By: Modesta Chand on 06-25-2022 RBC (Bld) [#/Vol] 4.94 10*6/uL 4.10-5.10 [facility] Serum or plasma alanine florez otransferase measurement without P-5'-P (enzymatic activiOrdered By: Modesta Chand on 06-25-2022 ALT No additional P-5'-P [Catalytic activity/Vol] 18 U/L 10-60 [facility] Serum or plasma albumin/glob ulin mass ratioOrdered By: Modesta Chand on 06-25-2022 Albumin/Globulin [Mass ratio] 1.8 {ratio} [facility] Serum or plasma alkaline justin sphatase measurement (enzymatic activity/volume)Ordered By: Modesta Chand on 06-25-2022 ALP [Catalytic activity/Vol] 65 U/L 32-92 [facility] Serum or plasma aspartate am inotransferase measurement (enzymatic activity/volume)Ordered By: Modesta Chand on 06-25-2022 AST [Catalytic activity/Vol] 18 U/L 10-42 [facility] Serum or plasma calcium tammy urement (mass/volume)Ordered By: Modesta Chand on 06-25-2022 Calcium [Mass/Vol] 10.2 mg/dL 8.2-10.2 [facility] Serum or plasma chloride judy surement (moles/volume)Ordered By: Modesta Chand on 06-25-2022 Chloride [Moles/Vol] 102 mmol/L 95-114 [facility] Serum or plasma glucose tammy urement (mass/volume)Ordered By: Modesta Chand on 06-25-2022 Glucose [Mass/Vol] 87 mg/dL 70-100 [facility] Comment on above: ADA recommended refe rence range Random Glucose Reference Range is dependent on time and content of last meal. Glucose of more than 200 mg/dL in a nonstressed, ambulatory subject supports the diagnosis of Diabetes Mellitus. Serum or plasma potassium me asurement (moles/volume)Ordered By: Modesta Chand on 06-25-2022 Potassium [Moles/Vol] 4.4 mmol/L 3.5-5.1 [facility] Serum or plasma sodium measu rement (moles/volume)Ordered By: Modesta Chand on 06-25-2022 Sodium [Moles/Vol] 137 mmol/L 136-146 [facility] Serum or plasma total biliru bin measurement (mass/volume)Ordered By: Modesta Chand on 06-25-2022 Bilirubin [Mass/Vol] 0.4 mg/dL 0.3-1.2 [facility] Serum or plasma total carbon dioxide measurement (moles/volume)Ordered By: Modesta Chand on 06-25-2022 CO2 [Moles/Vol] 23.8 mmol/L 22.0-30.0 [facility] Serum or plasma urea nitroge n measurement (mass/volume)Ordered By: Modesta Chand on 06-25-2022 Urea nitrogen [Mass/Vol] 14 mg/dL 9-23 [facility] TSH DL <= 0.005 mIU/L QnOrde red By: Modesta Chand on 06-25-2022 TSH Qn 1.05 m[IU]/L 0.45-5.33 [facility] Thyroxine (T4) free [Mass/vo lume] in Serum or PlasmaOrdered By: Modesta Chand on 06-25-2022 Free T4 [Mass/Vol] 0.74 ng/dL 0.61-1.12 [facility] HCG ( test) IA.rapi d Ql (U)Ordered By: Brennen Britt on 06-09-2022 HCG ( test) Ql (U) Negative [facility] COVID-19 Positive/NegativeOr dered By: Brennen Britt on 06-07-2022 SARS-CoV-2 (COVID-19) N gene JANAK+probe Ql (Resp) Negative Negative [facility] Comment on above: Testing for SARS-CoV -2 by RT-PCR This test was developed and its performance characteristics determined by [employer] ([employer]) and validated at the [facility]. This test has not been FDA cleared or approved. This test has been authorized by FDA under an Emergency Use Authorization (EUA). This test has been validated in accordance with the FDA's Guidance Document (Policy for Diagnostics Testing in Laboratories Certified to Perform High Complexity Testing under CLIA prior to Emergency Use Authorization for Coronavirus Disease-2019 during the Public Health Emergency) issued on February 28, 2020. This test is only authorized for the duration of time the declaration that circumstances exist justifying the authorization of the emergency use of in vitro diagnostic tests for detection of SARS-CoV-2 virus and/or diagnosis of COVID-19 infection under section 564(b)(1) of the Act, 21 U.S.C. 360bbb-3(b)(1), unless the authorization is terminated or revoked sooner. Albumin [Mass/volume] in Ser um or PlasmaOrdered By: Modesta Chand on 05-26-2022 Albumin [Mass/Vol] 3.9 g/dL 3.2-5.5 [facility] Basophils Auto (Bld) [#/Vol] Ordered By: Modesta Chand on 05-26-2022 Basophils (Bld) [#/Vol] 0.1 10*3/uL 0.0-0.1 [facility] Basophils/100 WBC Auto (Bld) Ordered By: Modesta Chand on 05-26-2022 Basophils/100 WBC (Bld) 1.1 % . [facility] Blood hemoglobin measurement (mass/volume)Ordered By: Modesta Chand on 05-26-2022 Hemoglobin (Bld) [Mass/Vol] 13.6 g/dL 12.0-16.0 [facility] Blood leukocytes automated c ount (number/volume)Ordered By: Modesta Chand on 05-26-2022 WBC (Bld) [#/Vol] 10.6 10*3/uL 4.5-13.5 [facility] C reactive protein [Mass/vol ume] in Serum or PlasmaOrdered By: Modesta Chand on 05-26-2022 CRP [Mass/Vol] 0.6 mg/dL 0.0-1.[address] [facility] [address] biopsyOrdered By: Yasmine Chand on 05-26-2022 Transferrin [Mass/Vol] 292 mg/dL 180-[facility] Creatinine and Glomerular fi ltration rate.predicted panel (S/P/Bld)Ordered By: Modetsa Chand on 05-26-2022 Creatinine [Mass/Vol] 0.63 mg/dL 0.44-1.03 [facility] Eosinophils Auto (Bld) [#/Vo l]Ordered By: Modesta Chand on 05-26-2022 Eosinophils (Bld) [#/Vol] 0.4 10*3/uL 0.0-0.7 [facility] Eosinophils/100 WBC Auto (Bl d)Ordered By: Modesta Chand on 05-26-2022 Eosinophils/100 WBC (Bld) 3.6 % . [facility] Erythrocyte distribution wid th Auto (RBC) [Ratio]Ordered By: Modesta Chand on 05-26-2022 Erythrocyte distribution width (RBC) [Ratio] 13.7 % 11.9-15.3 [facility] Erythrocyte sedimentation ra te by Photometric methodOrdered By: Modesta Chand on 05-26-2022 ESR Photometric method (Bld) [Velocity] 5 mm/hr 0-19 [facility] Estimated glomerular filtrat ion rate (GFR) non- AmericanOrdered By: Modesta Chand on 05-26-2022 GFR/1.73 sq M.predicted among non-blacks MDRD (S/P/Bld) [Vol rate/Area] > 60 mL/Min [facility] Ferritin [Mass/volume] in Se rum or PlasmaOrdered By: Modesta Chand on 05-26-2022 Ferritin [Mass/Vol] 14.2 ng/mL 11-306.8 [facility] Folate [Mass/volume] in Seru m or PlasmaOrdered By: Modesta Chand on 05-26-2022 Folate [Mass/Vol] 13.0 ng/mL >5.9 [facility] Comment on above: Folate reference ran ge: >5.9 ng/ml The WHO technical consultation on folate and vitamin b12 deficiencies has determined that folate concentrations less than 4 ng/ml are considered deficient. Globulin Calc (S) [Mass/Vol] Ordered By: Modesta Chand on 05-26-2022 Globulin (S) [Mass/Vol] 2.3 g/dL [facility] Glucose mean value [Mass/vol ume] in Blood Estimated from glycated hemoglobinOrdered By: Modesta Chand on 05-26-2022 Average glucose Estimated from glycated hemoglobin (Bld) [Mass/Vol] 111 mg/dL [facility] Hematocrit Auto (Bld) [Volum e fraction]Ordered By: Modesta Chand on 05-26-2022 Hematocrit (Bld) [Volume fraction] 41.4 % 36.0-46.0 [facility] Hemoglobin A1c percentageOrd ered By: Modesta Chand on 05-26-2022 HbA1c (Bld) [Mass fraction] 5.5 % 4.3-5.6 [facility] Comment on above: Increased risk for d iabetes: 5.7 - 6.4 diabetes: >6.4 glycemic control for adults with diabetes: <7.0 Iron [Mass/volume] in Serum or PlasmaOrdered By: Modesta Chand on 05-26-2022 Iron [Mass/Vol] 63 ug/dL 40-150 [facility] Iron binding capacity [Mass/ volume] in Serum or PlasmaOrdered By: Modesta Chand on 05-26-2022 Iron binding capacity [Mass/Vol] 409 ug/dL 255-450 [facility] Iron saturation [Mass Fracti on] in Serum or PlasmaOrdered By: Modesta Chand on 05-26-2022 Iron saturation [Mass fraction] 15.0 % 20-50 [facility] - Chemistry and C hemistry - challengeOrdered By: Modesta Chand on 05-26-2022 Cobalamin (Vitamin B12) [Mass/Vol] 329 pg/mL 180-914 [facility] - Hematology and Cell countsOrdered By: Modesta Chand on 05-26-2022 Nucleated RBC/100 WBC (Bld) [Ratio] 0.0 % 0-0.5 [facility] Lymphocytes Auto (Bld) [#/Vo l]Ordered By: Modesta Chand on 05-26-2022 Lymphocytes (Bld) [#/Vol] 2.3 10*3/uL 1.20-4.8 [facility] Lymphocytes/100 WBC Auto (Bl d)Ordered By: Modesta Chand on 05-26-2022 Lymphocytes/100 WBC (Bld) 21.6 % . [facility] MCH Auto (RBC) [Entitic mass ]Ordered By: Modesta Chand on 05-26-2022 MCH (RBC) [Entitic mass] 28.6 pg 25.0-35.0 [facility] MCHC Auto (RBC) [Mass/Vol]Or dered By: Modesta Chand on 05-26-2022 MCHC (RBC) [Mass/Vol] 33.0 g/dL 31.0-37.0 [facility] MCV Auto (RBC) [Entitic vol] Ordered By: Modesta Chand on 05-26-2022 MCV (RBC) [Entitic vol] 86.6 fL 78-102 [facility] Monocytes Auto (Bld) [#/Vol] Ordered By: Modesta Chand on 05-26-2022 Monocytes (Bld) [#/Vol] 0.6 10*3/uL 0.1-1.00 [facility] Monocytes/100 WBC Auto (Bld) Ordered By: Modesta Chand on 05-26-2022 Monocytes/100 WBC (Bld) 5.9 % . [facility] Neutrophils Auto (Bld) [#/Vo l]Ordered By: Modesta Chand on 05-26-2022 Neutrophils (Bld) [#/Vol] 7.2 10*3/uL 1.2-7.7 [facility] Neutrophils/100 WBC Auto (Bl d)Ordered By: Modesta Chand on 05-26-2022 Neutrophils/100 WBC (Bld) 67.8 % . [facility] No Panel InformationOrdered By: Modesta Chand on 05-26-2022 25-Hydroxy Vitamin D Total 26.9 ng/mL 30-100 [facility] Comment on above: VITAMIN D STATUS 25( [place])VITAMIN D RANGE (ng/mL) Deficient <20 Insufficient 20 to <30 Sufficient 30 to 100 Reference: Danica MF,Chayo NC, Sony ZULETA, et al. Evaluation,treatment, and prevention of vitamin D deficiency; an Endocrine Society clinical practice guideline. JCEM. 2010; 96(7):1911-30. Estimated GFR () > 60 mL/Min [facility] Comment on above: GFR estimated refere nce range: According to KDOQI guidelines, <60 ml/min/1.73m2 is sufficient to diagnose a patient with chronic kidney disease. Pharmacy Creatinine Clearance (Chem N/A [facility] Platelet mean volume Auto (B ld) [Entitic vol]Ordered By: Modesta Chand on 05-26-2022 Platelet mean volume (Bld) [Entitic vol] 8.9 fL 6.3-10.7 [facility] Platelets Auto (Bld) [#/Vol] Ordered By: Modesta Chand on 05-26-2022 Platelets (Bld) [#/Vol] 286 10*3/uL 150-450 [facility] Protein [Mass/volume] in Ser um or PlasmaOrdered By: Modesta Chand on 05-26-2022 Protein [Mass/Vol] 6.2 g/dL 6.1-7.9 [facility] RBC Auto (Bld) [#/Vol]Ordere d By: Modesta Chand on 05-26-2022 RBC (Bld) [#/Vol] 4.78 10*6/uL 4.10-5.10 [facility] Serum nuclear antibody titer Ordered By: Modesta Chand on 05-26-2022 Nuclear Ab (S) [Titer] Negative . [facility] Comment on above: Negative <1:80 Borderline 1:80 Positive >1:80 ICAP nomenclature: [id number] For more information about Hep-2 cell patterns use ANApatterns.org, the official website for the International Consensus on Antinuclear Antibody (EDMOND) Patterns (ICAP). Performed at: - [facility] [id number] Master Planner: James Nelson PhD, Phone: [phone] Serum or plasma alanine florez otransferase measurement without P-5'-P (enzymatic activiOrdered By: Modesta Chand on 05-26-2022 ALT No additional P-5'-P [Catalytic activity/Vol] 50 U/L 10-60 [facility] Serum or plasma albumin/glob ulin mass ratioOrdered By: Modesta Chand on 05-26-2022 Albumin/Globulin [Mass ratio] 1.7 {ratio} [facility] Serum or plasma alkaline justin sphatase measurement (enzymatic activity/volume)Ordered By: Modesta Chand on 05-26-2022 ALP [Catalytic activity/Vol] 58 U/L 32-92 [facility] Serum or plasma aspartate am inotransferase measurement (enzymatic activity/volume)Ordered By: Modesta Chand on 05-26-2022 AST [Catalytic activity/Vol] 25 U/L 10-42 [facility] Serum or plasma calcium tammy urement (mass/volume)Ordered By: Modesta Chand on 05-26-2022 Calcium [Mass/Vol] 9.3 mg/dL 8.2-10.2 [facility] Serum or plasma chloride judy surement (moles/volume)Ordered By: Modesta Chand on 05-26-2022 Chloride [Moles/Vol] 103 mmol/L 95-114 [facility] Serum or plasma glucose tammy urement (mass/volume)Ordered By: Modesta Chand on 05-26-2022 Glucose [Mass/Vol] 111 mg/dL 70-100 [facility] Comment on above: ADA recommended refe rence range Random Glucose Reference Range is dependent on time and content of last meal. Glucose of more than 200 mg/dL in a nonstressed, ambulatory subject supports the diagnosis of Diabetes Mellitus. Serum or plasma potassium me asurement (moles/volume)Ordered By: Modesta Chand on 05-26-2022 Potassium [Moles/Vol] 4.3 mmol/L 3.5-5.1 [facility] Serum or plasma sodium measu rement (moles/volume)Ordered By: Modesta Chand on 05-26-2022 Sodium [Moles/Vol] 137 mmol/L 136-146 [facility] Serum or plasma total biliru bin measurement (mass/volume)Ordered By: Modesta Chand on 05-26-2022 Bilirubin [Mass/Vol] 0.5 mg/dL 0.3-1.2 [facility] Serum or plasma total carbon dioxide measurement (moles/volume)Ordered By: Modesta Chand on 05-26-2022 CO2 [Moles/Vol] 24.9 mmol/L 22.0-30.0 [facility] Serum or plasma urea nitroge n measurement (mass/volume)Ordered By: Modesta Chand on 05-26-2022 Urea nitrogen [Mass/Vol] 9 mg/dL 9-23 [facility] Urine culture routineOrdered By: Gilson Castro on 05-18-2022 Bacteria identified Cx Nom (U) 2 Days [facility] Amphetamine Screen Ql (U)Ord ered By: Gilson Castro on 05-16-2022 Amphetamines Ql (U) Negative Negative [facility] Automated erythrocytes count in urine sediment (number/area)Ordered By: Gilson Castro on 05-16-2022 RBC Auto (Urine sed) [#/Area] 3-4 [HPF] 0-4 [facility] Automated leukocytes count i n urine sediment (number/area)Ordered By: Gilson Castro on 05-16-2022 WBC Auto (Urine sed) [#/Area] 5-9 [HPF] 0-4 [facility] Automated urine hyaline cast s count (number/volume)Ordered By: Gilson Castro on 05-16-2022 Hyaline casts Auto (U) [#/Vol] None seen [LPF] 0-1 [facility] Barbiturates [Presence] in U rineOrdered By: Gilson Castro on 05-16-2022 Barbiturates Ql (U) Positive Negative [facility] Basophils Auto (Bld) [#/Vol] Ordered By: Gilson Castro on 05-16-2022 Basophils (Bld) [#/Vol] 0.0 10*3/uL 0.0-0.1 [facility] Basophils/100 WBC Auto (Bld) Ordered By: Gilson Castro on 05-16-2022 Basophils/100 WBC (Bld) 0.4 % . [facility] Benzodiazepines [Presence] i n UrineOrdered By: Gilson Castro on 05-16-2022 Benzodiazepines Ql (U) Negative [facility] Bil[facility] Test strip Ql (U)O rdered By: Gilson Castro on 05-16-2022 Bilirubin Ql (U) Negative Negative [facility] Blood hemoglobin measurement (mass/volume)Ordered By: Gilson Castro on 05-16-2022 Hemoglobin (Bld) [Mass/Vol] 13.4 g/dL 12.0-16.0 [facility] Blood leukocytes automated c ount (number/volume)Ordered By: Gilson Castro on 05-16-2022 WBC (Bld) [#/Vol] 10.0 10*3/uL 4.5-13.5 [facility] Body fluid albumin measureme nt (mass/volume)Ordered By: Gilson Castro on 05-16-2022 Albumin (Body fld) [Mass/Vol] 4.3 g/dL 3.2-5.5 [facility] Cannabinoids [Presence] in U rine by Screen methodOrdered By: Gilson Castro on 05-16-2022 Cannabinoids Screen Ql (U) Positive Negative [facility] Comment on above: These are unconfirme d results and should not be used for legal purposes. Drug Cut-Off Concentration: AMPH 1000 ng/mL NIKOLAS 200 ng/mL SHRAVAN 200 ng/mL COCM 300 ng/mL OP 300 ng/mL PCP 25 ng/mL THC 20 ng/mL Casts typing in urine sedime nt by light microscopyOrdered By: Gilson Castro on 05-16-2022 Casts LM Nom (Urine sed) None seen [LPF] None Seen [facility] Color Auto (U)Ordered By: Pierce Castro on 05-16-2022 Color (U) Yellow Yellow [facility] Creatinine and Glomerular fi ltration rate.predicted panel (S/P/Bld)Ordered By: Gilson Castro on 05-16-2022 Creatinine [Mass/Vol] 0.80 mg/dL 0.44-1.03 [facility] Eosinophils Auto (Bld) [#/Vo l]Ordered By: Gilson Castro on 05-16-2022 Eosinophils (Bld) [#/Vol] 0.1 10*3/uL 0.0-0.7 [facility] Eosinophils/100 WBC Auto (Bl d)Ordered By: Gilson Castro on 05-16-2022 Eosinophils/100 WBC (Bld) 0.7 % . [facility] Erythrocyte distribution wid th Auto (RBC) [Ratio]Ordered By: Gilson Castro on 05-16-2022 Erythrocyte distribution width (RBC) [Ratio] 13.4 % 11.9-15.3 [facility] Estimated glomerular filtrat ion rate (GFR) non- AmericanOrdered By: Gilson Castro on 05-16-2022 GFR/1.73 sq M.predicted among non-blacks MDRD (S/P/Bld) [Vol rate/Area] > 60 mL/Min [facility] Globulin Calc (S) [Mass/Vol] Ordered By: Gilson Castro on 05-16-2022 Globulin (S) [Mass/Vol] 2.7 g/dL [facility] HCG ( test) IA.rapi d Ql (U)Ordered By: Gilson Castro on 05-16-2022 HCG ( test) Ql (U) Negative [facility] Hematocrit Auto (Bld) [Volum e fraction]Ordered By: Gilson Castro on 05-16-2022 Hematocrit (Bld) [Volume fraction] 39.4 % 36.0-46.0 [facility] Ketones Auto test strip (U) [Mass/Vol]Ordered By: Gilson Castro on 05-16-2022 Ketones (U) [Mass/Vol] 3+ Negative [facility] - Chemistry and C hemistry - challengeOrdered By: Gilson Castro on 05-16-2022 Lipase [Catalytic activity/Vol] 26.0 U/L 22-51 [facility] - Drug toxicology Ordered By: Gilson Castro on 05-16-2022 Opiates Ql (U) Negative Negative [facility] - Hematology and Cell countsOrdered By: Gilson Castro on 05-16-2022 Nucleated RBC/100 WBC (Bld) [Ratio] 0.0 % 0-0.5 [facility] Lymphocytes Auto (Bld) [#/Vo l]Ordered By: Gilson Castro on 05-16-2022 Lymphocytes (Bld) [#/Vol] 1.9 10*3/uL 1.20-4.8 [facility] Lymphocytes/100 WBC Auto (Bl d)Ordered By: Gilson Castro on 05-16-2022 Lymphocytes/100 WBC (Bld) 18.7 % . [facility] MCH Auto (RBC) [Entitic mass ]Ordered By: Gilson Castro on 05-16-2022 MCH (RBC) [Entitic mass] 28.6 pg 25.0-35.0 [facility] MCHC Auto (RBC) [Mass/Vol]Or dered By: Gilson Castro on 05-16-2022 MCHC (RBC) [Mass/Vol] 34.1 g/dL 31.0-37.0 [facility] MCV Auto (RBC) [Entitic vol] Ordered By: Gilson Castro on 05-16-2022 MCV (RBC) [Entitic vol] 84.0 fL 78-102 [facility] Monocytes Auto (Bld) [#/Vol] Ordered By: Gilson Castro on 05-16-2022 Monocytes (Bld) [#/Vol] 0.9 10*3/uL 0.1-1.00 [facility] Monocytes/100 WBC Auto (Bld) Ordered By: Gilson Castro on 05-16-2022 Monocytes/100 WBC (Bld) 9.2 % . [facility] Neutrophils Auto (Bld) [#/Vo l]Ordered By: Gilson Castro on 05-16-2022 Neutrophils (Bld) [#/Vol] 7.1 10*3/uL 1.2-7.7 [facility] Neutrophils/100 WBC Auto (Bl d)Ordered By: Gilson Castro on 05-16-2022 Neutrophils/100 WBC (Bld) 71.0 % . [facility] Nitrite Test strip Ql (U)Ord ered By: Gilson Castro on 05-16-2022 Nitrite Ql (U) Negative Negative [facility] No Panel InformationOrdered By: Gilson Castro on 05-16-2022 Estimated GFR () > 60 mL/Min [facility] Comment on above: GFR estimated refere nce range: According to KDOQI guidelines, <60 ml/min/1.73m2 is sufficient to diagnose a patient with chronic kidney disease. Pharmacy Creatinine Clearance (Chem 109.65 [facility] Phencyclidine Screen Ql (U)O rdered By: Gilson Castro on 05-16-2022 Phencyclidine Ql (U) Negative Negative [facility] Platelet mean volume Auto (B ld) [Entitic vol]Ordered By: Gilson Castro on 05-16-2022 Platelet mean volume (Bld) [Entitic vol] 8.5 fL 6.3-10.7 [facility] Platelets Auto (Bld) [#/Vol] Ordered By: Gilson Castro on 05-16-2022 Platelets (Bld) [#/Vol] 241 10*3/uL 150-450 [facility] Protein Auto test strip (U) [Mass/Vol]Ordered By: Gilson Castro on 05-16-2022 Protein (U) [Mass/Vol] Trace mg/dL Negative [facility] Protein [Mass/volume] in Ser um or PlasmaOrdered By: Gilson Castro on 05-16-2022 Protein [Mass/Vol] 7.0 g/dL 6.1-7.9 [facility] RBC Auto (Bld) [#/Vol]Ordere d By: Gilson Castro on 05-16-2022 RBC (Bld) [#/Vol] 4.69 10*6/uL 4.10-5.10 [facility] Serum or plasma alanine florez otransferase measurement without P-5'-P (enzymatic activiOrdered By: Gilson Castro on 05-16-2022 ALT No additional P-5'-P [Catalytic activity/Vol] 23 U/L 10-60 [facility] Serum or plasma albumin/glob ulin mass ratioOrdered By: Gilson Castro on 05-16-2022 Albumin/Globulin [Mass ratio] 1.6 {ratio} [facility] Serum or plasma alkaline justin sphatase measurement (enzymatic activity/volume)Ordered By: Gilson Castro on 05-16-2022 ALP [Catalytic activity/Vol] 58 U/L 32-92 [facility] Serum or plasma aspartate am inotransferase measurement (enzymatic activity/volume)Ordered By: Gilson Castro on 05-16-2022 AST [Catalytic activity/Vol] 22 U/L 10-42 [facility] Serum or plasma calcium tammy urement (mass/volume)Ordered By: Gilson Castro on 05-16-2022 Calcium [Mass/Vol] 9.2 mg/dL 8.2-10.2 [facility] Serum or plasma chloride judy surement (moles/volume)Ordered By: Gilson Castro on 05-16-2022 Chloride [Moles/Vol] 97 mmol/L 95-114 [facility] Serum or plasma glucose tammy urement (mass/volume)Ordered By: Gilson Castro on 05-16-2022 Glucose [Mass/Vol] 90 mg/dL 70-100 [facility] Comment on above: ADA recommended refe rence range Random Glucose Reference Range is dependent on time and content of last meal. Glucose of more than 200 mg/dL in a nonstressed, ambulatory subject supports the diagnosis of Diabetes Mellitus. Serum or plasma potassium me asurement (moles/volume)Ordered By: Gilson Castro on 05-16-2022 Potassium [Moles/Vol] 3.2 mmol/L 3.5-5.1 [facility] Serum or plasma sodium measu rement (moles/volume)Ordered By: Gilson Castro on 05-16-2022 Sodium [Moles/Vol] 135 mmol/L 136-146 [facility] Serum or plasma total biliru bin measurement (mass/volume)Ordered By: Gilson Castro on 05-16-2022 Bilirubin [Mass/Vol] 1.0 mg/dL 0.3-1.2 [facility] Serum or plasma total carbon dioxide measurement (moles/volume)Ordered By: Gilson Castro on 05-16-2022 CO2 [Moles/Vol] 24.6 mmol/L 22.0-30.0 [facility] Serum or plasma urea nitroge n measurement (mass/volume)Ordered By: Gilson Castro on 05-16-2022 Urea nitrogen [Mass/Vol] 23 mg/dL 9- [facility] Specific gravity Auto test s trip (U) [Rel density]Ordered By: Gilson Castro on 05-16-2022 Specific gravity (U) [Rel density] 1.023 1.001-1.03 0 [facility] Squamous epithelial cells de tection in urine sediment by light microscopyOrdered By: Gilson Castro on 05-16-2022 Epithelial cells.squamous LM Ql (Urine sed) 20-30 [HPF] 0-2 [facility] Urine bacteria detection by automated methodOrdered By: Gilson Castro on 05-16-2022 Bacteria Auto Ql (U) 1+ None Seen [facility] Urine clarity by refractomet ry automatedOrdered By: Gilson Castro on 05-16-2022 Clarity Refractometry automated (U) Turbid Clear [facility] Urine cocaine detectionOrder ed By: Gilson Castro on 05-16-2022 Cocaine Ql (U) Negative Negative [facility] Urine glucose measurement by automated test strip (mass/volume)Ordered By: Gilson Castro on 05-16-2022 Glucose Auto test strip (U) [Mass/Vol] Normal mg/dL Normal [facility] Urine hemoglobin detection b y automated test stripOrdered By: Gilson Castro on 05-16-2022 Hemoglobin Auto test strip Ql (U) Negative Negative [facility] Urine leukocyte esterase det ection by automated test stripOrdered By: Gilson Castro on 05-16-2022 Leukocyte esterase Auto test strip Ql (U) 2+ Negative [facility] Urobilinogen Auto test strip (U) [Mass/Vol]Ordered By: Gilson Castro on 05-16-2022 Urobilinogen (U) [Mass/Vol] Normal mg/dL Normal [facility] pH Auto test strip (U)Ordere d By: Gilson Castro on 05-16-2022 pH (U) 8.0 [pH] 5.0-9.0 [facility] Albumin [Mass/volume] in Ser um or PlasmaOrdered By: Art Bianchi on 05-15-2022 Albumin [Mass/Vol] 4.7 g/dL 3.2-5.5 [facility] Basophils Auto (Bld) [#/Vol] Ordered By: Art Bianchi on 05-15-2022 Basophils (Bld) [#/Vol] 0.0 10*3/uL 0.0-0.1 [facility] Basophils/100 WBC Auto (Bld) Ordered By: Art Bianchi on 05-15-2022 Basophils/100 WBC (Bld) 0.2 % . [facility] Blood hemoglobin measurement (mass/volume)Ordered By: Art Bianchi on 05-15-2022 Hemoglobin (Bld) [Mass/Vol] 13.6 g/dL 12.0-16.0 [facility] Blood leukocytes automated c ount (number/volume)Ordered By: Art Bianchi on 05-15-2022 WBC (Bld) [#/Vol] 14.0 10*3/uL 4.5-13.5 [facility] Creatinine and Glomerular fi ltration rate.predicted panel (S/P/Bld)Ordered By: Art Bianchi on 05-15-2022 Creatinine [Mass/Vol] 0.76 mg/dL 0.44-1.03 [facility] Eosinophils Auto (Bld) [#/Vo l]Ordered By: Art Bianchi on 05-15-2022 Eosinophils (Bld) [#/Vol] 0.0 10*3/uL 0.0-0.7 [facility] Eosinophils/100 WBC Auto (Bl d)Ordered By: Art Bianchi on 05-15-2022 Eosinophils/100 WBC (Bld) 0.4 % . [facility] Erythrocyte distribution wid th Auto (RBC) [Ratio]Ordered By: Art Bianchi on 05-15-2022 Erythrocyte distribution width (RBC) [Ratio] 13.7 % 11.9-15.3 [facility] Estimated glomerular filtrat ion rate (GFR) non- AmericanOrdered By: Art Bianchi on 05-15-2022 GFR/1.73 sq M.predicted among non-blacks MDRD (S/P/Bld) [Vol rate/Area] > 60 mL/Min [facility] Globulin Calc (S) [Mass/Vol] Ordered By: Art Bianchi on 05-15-2022 Globulin (S) [Mass/Vol] 3.2 g/dL [facility] Hematocrit Auto (Bld) [Volum e fraction]Ordered By: Art Bianchi on 05-15-2022 Hematocrit (Bld) [Volume fraction] 41.0 % 36.0-46.0 [facility] - Chemistry and C hemistry - challengeOrdered By: Art Bianchi on 05-15-2022 Lipase [Catalytic activity/Vol] 24.0 U/L 22-51 [facility] - Hematology and Cell countsOrdered By: Art Bianchi on 05-15-2022 Nucleated RBC/100 WBC (Bld) [Ratio] 0.0 % 0-0.5 [facility] Lymphocytes Auto (Bld) [#/Vo l]Ordered By: Art Bianchi on 05-15-2022 Lymphocytes (Bld) [#/Vol] 2.6 10*3/uL 1.20-4.8 [facility] Lymphocytes/100 WBC Auto (Bl d)Ordered By: Art Bianchi on 05-15-2022 Lymphocytes/100 WBC (Bld) 18.4 % . [facility] MCH Auto (RBC) [Entitic mass ]Ordered By: Art Bianchi on 05-15-2022 MCH (RBC) [Entitic mass] 28.0 pg 25.0-35.0 [facility] MCHC Auto (RBC) [Mass/Vol]Or dered By: Art Bianchi on 05-15-2022 MCHC (RBC) [Mass/Vol] 33.3 g/dL 31.0-37.0 [facility] MCV Auto (RBC) [Entitic vol] Ordered By: Art Bianchi on 05-15-2022 MCV (RBC) [Entitic vol] 84.1 fL 78-102 [facility] Monocytes Auto (Bld) [#/Vol] Ordered By: Art Bianchi on 05-15-2022 Monocytes (Bld) [#/Vol] 1.2 10*3/uL 0.1-1.00 [facility] Monocytes/100 WBC Auto (Bld) Ordered By: Art Bianchi on 05-15-2022 Monocytes/100 WBC (Bld) 8.3 % . [facility] Neutrophils Auto (Bld) [#/Vo l]Ordered By: Art Bianchi on 05-15-2022 Neutrophils (Bld) [#/Vol] 10.2 10*3/uL 1.2-7.7 [facility] Neutrophils/100 WBC Auto (Bl d)Ordered By: Art Bianchi on 05-15-2022 Neutrophils/100 WBC (Bld) 72.7 % . [facility] No Panel InformationOrdered By: Art Bianchi on 05-15-2022 Estimated GFR () > 60 mL/Min [facility] Comment on above: GFR estimated refere nce range: According to KDOQI guidelines, <60 ml/min/1.73m2 is sufficient to diagnose a patient with chronic kidney disease. Pharmacy Creatinine Clearance (Chem 115.34 [facility] Platelet mean volume Auto (B ld) [Entitic vol]Ordered By: Art Bianchi on 05-15-2022 Platelet mean volume (Bld) [Entitic vol] 8.8 fL 6.3-10.7 [facility] Platelets Auto (Bld) [#/Vol] Ordered By: Art Bianchi on 05-15-2022 Platelets (Bld) [#/Vol] 315 10*3/uL 150-450 [facility] Protein [Mass/volume] in Ser um or PlasmaOrdered By: Art Bianchi on 05-15-2022 Protein [Mass/Vol] 7.9 g/dL 6.1-7.9 [facility] RBC Auto (Bld) [#/Vol]Ordere d By: Art Bianchi on 05-15-2022 RBC (Bld) [#/Vol] 4.88 10*6/uL 4.10-5.10 [facility] Serum or plasma alanine florez otransferase measurement without P-5'-P (enzymatic activiOrdered By: Art Bianchi on 05-15-2022 ALT No additional P-5'-P [Catalytic activity/Vol] 25 U/L 10-60 [facility] Serum or plasma albumin/glob ulin mass ratioOrdered By: Art Bianchi on 05-15-2022 Albumin/Globulin [Mass ratio] 1.5 {ratio} [facility] Serum or plasma alkaline justin sphatase measurement (enzymatic activity/volume)Ordered By: Art Bianchi on 05-15-2022 ALP [Catalytic activity/Vol] 66 U/L 32-92 [facility] Serum or plasma aspartate am inotransferase measurement (enzymatic activity/volume)Ordered By: Art Bianchi on 05-15-2022 AST [Catalytic activity/Vol] 33 U/L 10-42 [facility] Serum or plasma calcium tammy urement (mass/volume)Ordered By: Art Bianchi on 05-15-2022 Calcium [Mass/Vol] 10.1 mg/dL 8.2-10.2 [facility] Serum or plasma chloride judy surement (moles/volume)Ordered By: Art Bianchi on 05-15-2022 Chloride [Moles/Vol] 94 mmol/L 95-114 [facility] Serum or plasma glucose tammy urement (mass/volume)Ordered By: Art Bianchi on 05-15-2022 Glucose [Mass/Vol] 102 mg/dL 70-100 [facility] Comment on above: ADA recommended refe rence range Random Glucose Reference Range is dependent on time and content of last meal. Glucose of more than 200 mg/dL in a nonstressed, ambulatory subject supports the diagnosis of Diabetes Mellitus. Serum or plasma potassium me asurement (moles/volume)Ordered By: Art Bianchi on 05-15-2022 Potassium [Moles/Vol] 3.1 mmol/L 3.5-5.1 [facility] Serum or plasma sodium measu rement (moles/volume)Ordered By: Art Bianchi on 05-15-2022 Sodium [Moles/Vol] 135 mmol/L 136-146 [facility] Serum or plasma total biliru bin measurement (mass/volume)Ordered By: Art Bianchi on 05-15-2022 Bilirubin [Mass/Vol] 1.2 mg/dL 0.3-1.2 [facility] Serum or plasma total carbon dioxide measurement (moles/volume)Ordered By: Art Bianchi on 05-15-2022 CO2 [Moles/Vol] 22.2 mmol/L 22.0-30.0 [facility] Serum or plasma urea nitroge n measurement (mass/volume)Ordered By: Art Bianchi on 05-15-2022 Urea nitrogen [Mass/Vol] 23 mg/dL 9- [facility] Albumin [Mass/volume] in Ser um or PlasmaOrdered By: Art Bianchi on 05-13-2022 Albumin [Mass/Vol] 4.3 g/dL 3.2-5.5 [facility] Automated erythrocytes count in urine sediment (number/area)Ordered By: Art Bianchi on 05-13-2022 RBC Auto (Urine sed) [#/Area] 1-2 [HPF] 0-4 [facility] Automated leukocytes count i n urine sediment (number/area)Ordered By: Art Bianchi on 05-13-2022 WBC Auto (Urine sed) [#/Area] 1-2 [HPF] 0-4 [facility] Basophils Auto (Bld) [#/Vol] Ordered By: Art Bianchi on 05-13-2022 Basophils (Bld) [#/Vol] 0.1 10*3/uL 0.0-0.1 [facility] Basophils/100 WBC Auto (Bld) Ordered By: Art Bianchi on 05-13-2022 Basophils/100 WBC (Bld) 1.0 % . [facility] Bilirubin Test strip Ql (U)O rdered By: Art Bianchi on 05-13-2022 Bilirubin Ql (U) Negative Negative [facility] Blood hemoglobin measurement (mass/volume)Ordered By: Art Bianchi on 05-13-2022 Hemoglobin (Bld) [Mass/Vol] 13.7 g/dL 12.0-16.0 [facility] Blood leukocytes automated c ount (number/volume)Ordered By: Art Bianchi on 05-13-2022 WBC (Bld) [#/Vol] 10.4 10*3/uL 4.5-13.5 [facility] Color Auto (U)Ordered By: Adrian Bianchi on 05-13-2022 Color (U) Yellow Yellow [facility] [facility] Creat[facility] and Glomerular fi ltration rate.predicted panel (S/P/Bld)Ordered By: Atr Bianchi on 05-13-2022 Creatinine [Mass/Vol] 0.76 mg/dL 0.44-1.03 [facility] Eosinophils Auto (Bld) [#/Vo l]Ordered By: Art Bianchi on 05-13-2022 Eosinophils (Bld) [#/Vol] 0.5 10*3/uL 0.0-0.7 [facility] Eosinophils/100 WBC Auto (Bl d)Ordered By: Art Bianchi on 05-13-2022 Eosinophils/100 WBC (Bld) 4.6 % . [facility] Erythrocyte distribution wid th Auto (RBC) [Ratio]Ordered By: Art Bianchi on 05-13-2022 Erythrocyte distribution width (RBC) [Ratio] 13.6 % 11.9-15.3 [facility] Estimated glomerular filtrat ion rate (GFR) non- AmericanOrdered By: Art Bianchi on 05-13-2022 GFR/1.73 sq M.predicted among non-blacks MDRD (S/P/Bld) [Vol rate/Area] > 60 mL/Min [facility] Globulin Calc (S) [Mass/Vol] Ordered By: Art Bianchi on 05-13-2022 Globulin (S) [Mass/Vol] 2.7 g/dL [facility] HCG ( test) IA.rapi d Ql (U)Ordered By: Art Bianchi on 05-13-2022 HCG ( test) Ql (U) Negative [facility] Hematocrit Auto (Bld) [Volum e fraction]Ordered By: Art Bianchi on 05-13-2022 Hematocrit (Bld) [Volume fraction] 40.5 % 36.0-46.0 [facility] Ketones Auto test strip (U) [Mass/Vol]Ordered By: Art Bianchi on 05-13-2022 Ketones (U) [Mass/Vol] Trace Negative [facility] - Hematology and Cell countsOrdered By: Art Bianchi on 05-13-2022 Nucleated RBC/100 WBC (Bld) [Ratio] 0.0 % 0-0.5 [facility] - UrinalysisOrder ed By: Art Bianchi on 05-13-2022 Hyaline casts LM Ql (Urine sed) 0-8 [LPF] 0-8 [facility] Lymphocytes Auto (Bld) [#/Vo l]Ordered By: Art Bianchi on 05-13-2022 Lymphocytes (Bld) [#/Vol] 1.4 10*3/uL 1.20-4.8 [facility] Lymphocytes/100 WBC Auto (Bl d)Ordered By: Art Bianchi on 05-13-2022 Lymphocytes/100 WBC (Bld) 13.1 % . [facility] MCH Auto (RBC) [Entitic mass ]Ordered By: Art Bianchi on 05-13-2022 MCH (RBC) [Entitic mass] 28.6 pg 25.0-35.0 [facility] MCHC Auto (RBC) [Mass/Vol]Or dered By: Art Bianchi on 05-13-2022 MCHC (RBC) [Mass/Vol] 33.7 g/dL 31.0-37.0 [facility] MCV Auto (RBC) [Entitic vol] Ordered By: Art Bianchi on 05-13-2022 MCV (RBC) [Entitic vol] 84.7 fL 78-102 [facility] Monocytes Auto (Bld) [#/Vol] Ordered By: Art Bianchi on 05-13-2022 Monocytes (Bld) [#/Vol] 0.4 10*3/uL 0.1-1.00 [facility] Monocytes/100 WBC Auto (Bld) Ordered By: Art Bianchi on 05-13-2022 Monocytes/100 WBC (Bld) 4.2 % . [facility] Neutrophils Auto (Bld) [#/Vo l]Ordered By: Art Bianchi on 05-13-2022 Neutrophils (Bld) [#/Vol] 8.0 10*3/uL 1.2-7.7 [facility] Neutrophils/100 WBC Auto (Bl d)Ordered By: Art Bianchi on 05-13-2022 Neutrophils/100 WBC (Bld) 77.1 % . [facility] Nitrite Test strip Ql (U)Ord ered By: Art Bianchi on 05-13-2022 Nitrite Ql (U) Negative Negative [facility] No Panel InformationOrdered By: Art Bianchi on 05-13-2022 Estimated GFR () > 60 mL/Min [facility] Comment on above: GFR estimated refere nce range: According to KDOQI guidelines, <60 ml/min/1.73m2 is sufficient to diagnose a patient with chronic kidney disease. Pharmacy Creatinine Clearance (Chem 112.80 [facility] Platelet mean volume Auto (B ld) [Entitic vol]Ordered By: Art Bianchi on 05-13-2022 Platelet mean volume (Bld) [Entitic vol] 8.6 fL 6.3-10.7 [facility] Platelets Auto (Bld) [#/Vol] Ordered By: Art Bianchi on 05-13-2022 Platelets (Bld) [#/Vol] 264 10*3/uL 150-450 [facility] Protein Auto test strip (U) [Mass/Vol]Ordered By: Art Bianchi on 05-13-2022 Protein (U) [Mass/Vol] 30 mg/dL Negative [facility] Protein [Mass/volume] in Ser um or PlasmaOrdered By: Art Bianchi on 05-13-2022 Protein [Mass/Vol] 7.0 g/dL 6.1-7.9 [facility] RBC Auto (Bld) [#/Vol]Ordere d By: Art Bianchi on 05-13-2022 RBC (Bld) [#/Vol] 4.78 10*6/uL 4.10-5.10 [facility] Serum or plasma alanine florez otransferase measurement without P-5'-P (enzymatic activiOrdered By: Art Bianchi on 05-13-2022 ALT No additional P-5'-P [Catalytic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 Additional Information Last Updated: 23-Jun-2018 02:40 by Lubna Lockett) [facility] Visitor Enrico 06-23-2018 Visitor List Visitor List: Carlos Parikh (father). Cy Parikh (mother). Electronic Signatures: Lubna Lockett (WIL) (Signed 23-Jun-2018 04:37) Authored: Visitor List Last Updated: 23-Jun-2018 04:37 by Lubna Lockett) [facility] Office Visit (Pediatric Neur ology)on 06-05-2018 Office Visit (Pediatric Neurology) Chief ComplaintFollow up POTS and headaches. Accompanied by mother and father. History of Present IllnessTrinity is a 13 year old young woman POTS, anxiety and headaches. She is currently on Neurontin 300 mg TID. She is also on Magnesium 400 mg daily and Vitamin B 2 400 mg daily. No medication side effects are reported. She has been having a headache 2-3 times per week. These are occipital or on the top of her headache and squeezing in nature. She will have 3 migraines per month and these have associated eye pain. She has treated these with Tylenol but the Tylenol is not effective. She may be waiting too long to take the Tylenol. She is having trouble staying asleep once she falls asleep. She will fall asleep in the car very easily. She snores when she sleeps. She may have pauses in her sleep. She had a migraine that caused a bloody nose and then she had blood coming out of her tear ducts. She had seen an lens grinder rough who confirmed this. 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 She will be going to [employer] school in the fall. She can still be temperamental at times, this increases when she does not feel well. She is in a good mood today. She denies any thoughts about hurting herself. 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) POTS (postural orthostatic tachycardia syndrome) (427.89) (R00.0,I95.1) Vitamin D deficiency (268.9) (E55.9) Vomiting (787.03) (R11.10) Past Medical History History of Abnormal CT of the abdomen (793.6) (R93.5) History of back pain (V13.59) (Z87.39) History of being hospitalized (V13.9) (Z92.89) History of chronic constipation (V12.79) (Z87.19) History of pneumonia (V12.61) (Z87.01) History of Influenza vaccine needed (V04.81) (Z23) Given by PMD Fall 2013 Surgical History Denied: History Of Prior Surgery Family History Family history of Anxiety Family history of allergic rhinitis (V19.6) (Z84.89) Family history of bleeding disorder (V18.3) (Z83.2) Family history of gallstones (V18.59) (Z83.79) Family history of OCD (obsessive compulsive disorder) Family history of Seizures Family history of allergic rhinitis (V19.6) (Z84.89) Family history of gastric ulcer (V18.59) (Z83.79) Family history of malignant neoplasm of kidney (V16.51) (Z80.51) Family history of migraine headaches (V17.2) (Z82.0) Family history of type 2 diabetes mellitus (V18.0) (Z83.3) Family history of Anxiety Family history of asthma (V17.5) (Z82.5) Family history of gallstones (V18.59) (Z83.79) Family history of OCD (obsessive compulsive disorder) Family history of Anxiety Family history of epilepsy (V17.2) (Z82.0) Family history of gastric ulcer (V18.59) (Z83.79) Family history of goiter (V18.19) (Z83.49) Family history of OCD (obsessive compulsive disorder) Family history of Colon cancer Family history of gallstones (V18.59) (Z83.79) Family history of gastroesophageal reflux disease (V18.59) (Z83.79) Family history of Anxiety Family history of OCD (obsessive compulsive disorder) Family history of Seizures Family history of Chiari malformation Family history of migraine headaches (V17.2) (Z82.0) Family history of liver disease (V18.59) (Z83.79) Family history of Chiari malformation Family history of Dysplastic kidney Family history of Seizures Family history of POTS (postural orthostatic tachycardia syndrome) Family history of thyroid disease (V18.19) (Z83.49) Social History Brother Lives with parents Pets/Animals: Cat Secondhand smoke exposure (V15.89) (Z77.22) Allergies No Known Drug Allergies Recorded By: Amira Roach; 09/23/2014 6:49:47 PM Animal dander Recorded By: Bethany Torre; 10/16/2015 1:32:47 PM Dust Recorded By: Bethany Torre; 10/16/2015 1:32:47 PM Dust Mite Recorded By: Bethany Torre; 10/16/2015 1:32:47 PM Current Meds Hyoscyamine Sulfate 0.125 MG Oral Tablet Disintegrating; 2 tablets orally every 8 hours Requested for: 28Sep2017; Last Rx:28Sep2017 Ordered Rx By: Mere Simpson; Dispense: 0 Days ; #:180 Tablet Disintegrating; Refill: 2;For: Abdominal pain; KAYLA = N; Verified Transmission to [place] [address]; Last Updated By: Juan Antonio Burgos; 09/28/2017 12:12:51 PM Afrin 12 Hour 0.05 % Nasal Solution; USE 1 SPRAY IN EACH NOSTRIL TWICE DAILY;Therapy: 22Dec2017 to (Evaluate:25Dec2017) Requested for: 22Dec2017; LastRx:22Dec2017 Ordered Rx By: Dali Mcintosh; Dispense: 3 Days ; #: Sufficient X 15 ML Bottle; Refill: 0;For: Abdominal pain, Asthma, mild persistent, Epistaxis, Flu-like symptoms, Hematemesis, Vomiting; KAYLA = N; Rx auto-faxed to [facility]; Last Updated By: CTIC Dakar; 12/22/2017 5:43:51 PM AeroChamber Z-Stat Plus/Large Miscellaneous; Please dispense large spacer withmouthpiece. Okay to substitute Optichamber with mouthpiece or Ashley Vortex withmouthpiece;Therapy: 23Sep2014 to (Last Rx:24Mar2015) Requested for: 24Mar2015 Ordered Rx By: Amira Roach; Dispense: 0 Days ; #:1 Miscellaneous; Refill: 1;For: Asthma; KAYLA = N; Verified Transmission to [facility]; Last Updated By: CTIC Dakar; 03/24/2015 10:46:52 AM Albuterol Sulfate (2.5 MG/3ML) 0.083% Inhalation Nebulization Solution; Inhale one vialevery 4-6 hours as needed for cough, wheezing and shortness of breath;Therapy: 23Sep2014 to (Evaluate:20Oct2015) Requested for: 24Mar2015; LastRx:24Mar2015 Ordered Rx By: Amira Roach; Dispense: 30 Days ; #:1 X 3 ML Plas Cont (60 Plas Conts); Refill: 6;For: Asthma; KAYLA = N; [facility] [place] [facility] [address]; Last Updated By: CTIC Dakar; 03/24/2015 10:46:51 AM PredniSONE 20 MG Oral Tablet; Take 3 tablets once daily for 5-7 days. To be used in thesetting of a severe asthma flare-up. Please call the office prior to starting;Therapy: 23Sep2014 to (Last Rx:24Mar2015) Requested for: [id number] Ordered Rx By: Amira Roach; Dispense: 0 Days ; #:21 Tablet; Refill: 1;For: Asthma; KAYLA = N; Sent To: [facility]; Last Updated By: Dali Mcintosh; 04/14/2018 10:03:48 AM ProAir HFA 108 (90 Base) MCG/ACT Inhalation Aerosol Solution; Inhale 2-4 puffs every4-6 hours as needed for cough, wheezing or shortness of breath and prior to exercise;Therapy: 23Sep2014 to (Last Rx:[id number]) Requested for: 24Mar2015 Ordered Rx By: Amira Roach; Dispense: 0 Days ; #:2 X 8.5 GM Inhaler; Refill: 6;For: Asthma; KAYLA = N; Verified Transmission to [place] [address]; Last Updated By: Juan Antonio Burgos; 03/24/2015 10:46:52 AM Qvar 80 MCG/ACT Inhalation Aerosol Solution; INHALE TWO PUFFS BY MOUTH TWICEA DAY WITH A SPACER;Therapy: 23Sep2014 to (Last Rx:[id number]) Requested for: 27Apr2016 Ordered Rx By: Amira Roach; Dispense: 0 Days ; #:8.7 EA; Refill: 5;For: Asthma, mild persistent; KAYLA = N; Verified Transmission to [place] [address] Lansoprazole 30 MG Oral Capsule Delayed Release; TAKE 1 CAPSULE EVERYMORNING DAILY;Therapy: 08Yvv1259 to (Evaluate:05Jfg9392) Requested for: 18Apr2018; LastRx:18Apr2018 Ordered Rx By: Dali Mcintosh; Dispense: 30 Days ; #:30 Capsule Delayed Release; Refill: 3;For: Gastro-esophageal reflux; KAYLA = N; Verified Transmission to [place] [address] Unspecified Medication; Vitamin B2-400 Oral Capsule1 capsule orally once a day;Therapy: (Recorded:62Pmq3105) to Recorded Dispense: 0 Days ; #: Sufficient; Refill: 0;For: Health Maintenance; KAYLA = N; Record; Last Updated By: Mehran Martinez; 08/26/2017 8:43:21 AM Gabapentin 300 MG Oral Capsule; TAKE 1 CAPSULE 3 TIMES DAILY;Therapy: 28Sep2017 to (Evaluate:23Sba3289) Requested for: 18Feb2018; LastRx:18Feb2018 Ordered Rx By: Mere Simpson; Dispense: 30 Days ; #:90 Capsule; Refill: 5;For: Migraine; KAYLA = N; Verified Transmission to [place] [address]; Last Updated By: CTIC Dakar; 02/18/2018 9:49:39 AM Magnesium Oxide 400 MG Oral Tablet; 1 TABLET ORALLY ONCE A DAY;Therapy: (Recorded:26Aug2017) to Recorded Dispense: 0 Days ; #: Sufficient Tablet; Refill: 0;For: Migraine; KAYLA = N; Record; Last Updated By: Mehran Martinez; 08/26/2017 8:43:21 AM Amitriptyline HCl - 25 MG Oral Tablet; TAKE 1 TABLET AT BEDTIME;Therapy: 14Apr2018 to (Evaluate:00Olm8310) Requested for: 18Apr2018; LastRx:[id number] Ordered Rx By: Dali Mcintosh; Dispense: 30 Days ; #:30 Tablet; Refill: 6;For: Migraine, Vomiting; KAYLA = N; Verified Transmission to [place] [address] Vitamin D 1000 UNIT Oral Tablet; TAKE 1 TABLET DAILY;Therapy: 14Apr2018 to (Evaluate:85Igg7889) Requested for: 58Zfp5902; LastRx:[id number] Ordered Rx By: Dali Mcintosh; Dispense: 30 Days ; #:30 Tablet; Refill: 3;For: Vitamin D deficiency; KAYLA = N; Verified Transmission to [place] [address] Cyproheptadine HCl - 4 MG Oral Tablet; TAKE 1 TABLET EVERY 8 HOURS DAILY Requested for: 02Sep2017; Last Rx:02Sep2017 Ordered Rx By: Jessica Coello; Dispense: 30 Days ; #:90 Tablet; Refill: 3;For: Vomiting; KAYLA = N; Rx auto-faxed to [place] [address]; Last Updated By: CTIC Dakar; 09/02/2017 3:51:52 PM Ondansetron HCl - 8 MG Oral Tablet; TAKE 1 TABLET 3 times daily PRN vomiting;Therapy: 16Dec2017 to (Evaluate:71Lle6472) Requested for: 89Fdg1310; LastRx:[id number] Ordered Rx By: Dali Mcintosh; Dispense: 30 Days ; #:90 Tablet; Refill: 3;For: Vomiting; KAYLA = N; Verified Transmission to [place] [address] Phenergan 25 MG SUPP; INSERT 1 SUPPOSITORY RECTALLY EVERY 12 HOURS ASNEEDED FOR NAUSEA AND VOMITING;Therapy: 53Oxz1311 to (Last Rx:16Dec2017) Requested for: 16Dec2017 Ordered Rx By: Dali Mcintosh; Dispense: 0 Days ; #:12 Suppository; Refill: 1;For: Vomiting; KAYLA = N; Rx auto-faxed to [place] [address]; Last Updated By: Juan Antonio Burgos; 12/16/2017 1:32:36 PM Promethazine HCl - 25 MG Oral Tablet; 1 tablet orally every 12 hours as needed fornausea/vomiting Requested for: 16Dec2017; Last Rx:16Dec2017 Ordered Rx By: Dali Mcintosh; Dispense: 0 Days ; #:60 Tablet; Refill: 0;For: Vomiting; KAYLA = N; Rx auto-faxed to [place] [address]; Last Updated By: Juan Antonio Burgos; 12/16/2017 1:32:35 PM Atenolol 25 MG Oral Tablet; TAKE 1 TABLET DAILY;Therapy: (Recorded:20Oct2015) to Recorded Dispense: 0 Days ; #: Sufficient Tablet; Refill: 0; KAYLA = N; Record; Last Updated By: Amira Roach; 10/20/2015 10:38:08 AM Fludrocortisone Acetate 0.1 MG Oral Tablet; take one tablet twice a day;Therapy: (Recorded:20Oct2015) to Recorded Dispense: 0 Days ; #: Sufficient Tablet; Refill: 0; KAYLA = N; Record; Last Updated By: Amira Roach; 10/20/2015 10:38:08 AM Tri-Sprintec 0.18/0.215/0.25 MG-35 MCG Oral Tablet;Therapy: 23Mar2018 to Recorded Dispense: 28 Days ; #:28 TABS; Refill: 0; KAYLA = N; Record; Last Updated By: Dali Mcintosh; 04/14/2018 10:03:53 AM Vitals Vital Signs Recorded: 49Qlj6175 10:67XTPxaybxje837Atqziwqys 40Bshqiv4 ft 2.40 rjCpsqpg286 lb 14.53 ozBMI Ztgfwlhyob91.18BSA Calculated1.94BMI Euepvscqzm54 %2-20 Stature Idtupzhjvl49 %2-20 Weight Qqkkuhvtcf89 % Physical ExamToday's exam finds a cooperative young woman in no acute distress. Constitutional - Well dressed, well nourished child, no apparent distress. Skin - scars. HEENT- Normocephalic/atraumatic, mucous membranes moist, no scleral icterus, conjunctiva pink, and nondysmorphic facies. Respiratory - Respirations regular. Abdomen - Soft, non-tender/non-distended. Extremities - Full range of motion. bites nails. Neurologic - Mental Status: Alert and interactive. Oriented to person, place and time. Normal attention and concentration. Fluent spontaneous speech with no paraphrasic errors. Cranial Nerves: II: Visual arevalo full to confrontation bilaterally. Fundoscopic exam with sharp disc margins, no evidence of papilledema, normal retinal vessels bilaterally. III, IV, : Extraocular movements intact with no nystagmus. Pupils equal, round and reactive to light. V: Sensation intact in all three distributions of trigeminal nerve. VII: Face symmetric. VIII: Hearing intact to finger rub bilaterally. IX, X: Palate elevates symmetrically. XI: Trapezius and sternocleidomastoid strength 5/5 bilaterally. XII: Tongue protrudes midline. Motor: Strength 5/5 throughout No pronator drift. Normal bulk and tone. No involuntary movements seen. DTR: 2/4 throughout. Sensory: Intact. Coordination: Finger to nose and rapid serial opposition performed without evidence of ataxia, dysmetria or dysdiadochokinesis. Gait: Normal narrow based gait with symmetric arm swing. Stressed gait performed without difficulty. Diagnoses/Problems Anxiety (300.00) (F41.9) Migraine (346.90) (G43.909) POTS (postural orthostatic tachycardia syndrome) (427.89) (R00.0,I95.1) Snoring (786.09) (R06.83) Lives with parents OrdersSnoring Pediatric Sleep Medicine Referral Evaluation and Treatment Evaluate AND Treat Status:Hold For - Scheduling Requested for: [id number] Ordered;For: Snoring; Ordered By: Mere Simpson Performed: Due: 03Sep2018 Patient Discussion/SummaryTrinity has had an improvement in her headaches since the addition of the Neurontin. She continues to have some anxiety. I have talked with the family about the followin. Increase Neurontin to 300-300-600 mg. Note effect on headaches and anxiety.2. Continue with Magnesium and Vitamin B2.3. Sleep referral for snoring and apnea.4. Call with updates.5. Follow up in 4 months. TimeTime Stamp_[facility]: Time Spent With Patient: 30 minutes of which greater than 50 percent was spent counseling and or coordinating care. End of Encounter MedsAeroChamber Z-Stat Plus/Large Miscellaneous; Please dispense large spacer withmouthpiece. Okay to substitute Optichamber with mouthpiece or Ashley Vortex withmouthpiece;Therapy: 23Sep2014 to (Last Rx:[id number]) Requested for: 24Mar2015 OrderedAfrin 12 Hour 0.05 % Nasal Solution; USE 1 SPRAY IN EACH NOSTRIL TWICE DAILY;Therapy: 22Dec2017 to (Evaluate:25Dec2017) Requested for: 22Dec2017; LastRx:22Dec2017 OrderedAlbuterol Sulfate (2.5 MG/3ML) 0.083% Inhalation Nebulization Solution; Inhale one vialevery 4-6 hours as needed for cough, wheezing and shortness of breath;Therapy: 23Sep2014 to (Evaluate:20Oct2015) Requested for: 74Xxd5374; LastRx:[id number] OrderedAmitriptyline HCl - 25 MG Oral Tablet; TAKE 1 TABLET AT BEDTIME;Therapy: 53Xwu8808 to (Evaluate:25Ctm8943) Requested for: 23Efv6076; LastRx:[id number] OrderedAtenolol 25 MG Oral Tablet; TAKE 1 TABLET DAILY;Therapy: (Recorded:20Oct2015) to RecordedCyproheptadine HCl - 4 MG Oral Tablet; TAKE 1 TABLET EVERY 8 HOURS DAILY Requested for: 02Sep2017; Last Rx:02Sep2017 OrderedFludrocortisone Acetate 0.1 MG Oral Tablet; take one tablet twice a day;Therapy: (Recorded:00Tky4430) to RecordedGabapentin 300 MG Oral Capsule; TAKE 1 CAPSULE 3 TIMES DAILY;Therapy: 28Sep2017 to (Evaluate:89Mtu7995) Requested for: 18Feb2018; LastRx:18Feb2018 OrderedHyoscyamine Sulfate 0.125 MG Oral Tablet Disintegrating; 2 tablets orally every 8 hours Requested for: 28Sep2017; Last Rx:28Sep2017 OrderedLansoprazole 30 MG Oral Capsule Delayed Release; TAKE 1 CAPSULE EVERYMORNING DAILY;Therapy: 14Apr2018 to (Evaluate:15Dpk1050) Requested for: 18Apr2018; LastRx:18Apr2018 OrderedMagnesium Oxide 400 MG Oral Tablet; 1 TABLET ORALLY ONCE A DAY;Therapy: (Recorded:08Kkv1373) to RecordedOndansetron HCl - 8 MG Oral Tablet; TAKE 1 TABLET 3 times daily PRN vomiting;Therapy: 16Dec2017 to (Evaluate:62Ber8435) Requested for: 18Apr2018; LastRx:18Apr2018 OrderedPhenergan 25 MG SUPP; INSERT 1 SUPPOSITORY RECTALLY EVERY 12 HOURS ASNEEDED FOR NAUSEA AND VOMITING;Therapy: 03Nov2015 to (Last Rx:16Dec2017) Requested for: 16Dec2017 OrderedPredniSONE 20 MG Oral Tablet; Take 3 tablets once daily for 5-7 days. To be used in thesetting of a severe asthma flare-up. Please call the office prior to starting;Therapy: 23Sep2014 to (Last Rx:24Mar2015) Requested for: 14Apr2018 OrderedProAir HFA 108 (90 Base) MCG/ACT Inhalation Aerosol Solution; Inhale 2-4 puffs every4-6 hours as needed for cough, wheezing or shortness of breath and prior to exercise;Therapy: 23Sep2014 to (Last Rx:[id number]) Requested for: 24Mar2015 OrderedPromethazine HCl - 25 MG Oral Tablet; 1 tablet orally every 12 hours as needed fornausea/vomiting Requested for: 16Dec2017; Last Rx:16Dec2017 OrderedQvar 80 MCG/ACT Inhalation Aerosol Solution; INHALE TWO PUFFS BY MOUTH TWICEA DAY WITH A SPACER;Therapy: 23Sep2014 to (Last Rx:13Bzi1105) Requested for: 27Apr2016 OrderedTri-Sprintec 0.18/0.215/0.25 MG-35 MCG Oral Tablet;Therapy: 23Mar2018 to RecordedUnspecified Medication; Vitamin B2-400 Oral Capsule1 capsule orally once a day;Therapy: (Recorded:[id number]) to RecordedVitamin D 1000 UNIT Oral Tablet; TAKE 1 TABLET DAILY;Therapy: [id number] to (Evaluate:[id number]) Requested for: [id number]; LastRx:[id number] Ordered Signatures Electronically signed by : MICHAEL Durán; Jun 05 2018 10:46AM EST (Author) Normal [facility] Discharge Summaryon 08-24-20 Discharge Summary Send Summary:Dischar ge Summary Providers:Provider Role Provider Name? Referring Dali Mcintosh? Attending Adeola Colon? Primary Zac Daniel Recipients: Adeola Colon MD Baez-Socorro, Virginia M, MD Bumagina, Natalie, MD - [phone] [[id number]]Dali Mcintosh MD - [phone] [Preferred]Discharge:Summar y:Admission Date: .09-Aug-2017 21:44:00Discharge Date: [id number] Physician at Discharge: Adeola Colon NAdmission Reason: vomiting, hematemesisFinal Discharge Diagnoses: Functional abdominal painProcedures: null Aug 11, 2017Condition at Discharge: SatisfactoryDisposition at Discharge: .HomeVital Signs: T P R BP [id number] 36.6 70 18 126/84 98%Date/Time 08/24 8:58 08/24 8:58 08/24 8:58 08/24 8:58 08/24 8:58Range (36.4C - 36.9C ) (50 - 80 ) (16 - 20 ) (123 - 126 )/(73 - 84 ) (97%- 98% )Highest temp of 36.9 C was recorded at 08/23 21:47Hospital Course:12 yo female with h/o POTS, asthma and migraine admitted for further evaluationand management of chronic vomiting and recurrent hematemesis. The vomiting hasbeen going on for several months, but worse recently. She was admitted [facility] last month for the vomiting. She also has ongoing headaches; alongwith occasional dizziness and blurry vision with rapid position changes. EGDand colonoscopy in 2014 were normal.Her MRI brain was normal. Her EGD was unremarkable. She continued to haveabdominal pain and vomiting which were managed with good IV hydration alongwith oral intake as tolerated and PPI, Zofran and phenargan. She also receivedlevsin and bentyl for her abdominal pain. Her headaches were managed with IV mgand riboflavin. Her symptoms improved except for oral intake. She is given NGfeeds - continuous over night for supplementation. Recommend 600mL (2.5 boxes)Boost Plus + 300mL water = 900mL at 90mL/hr ON. This will provide 900 kcal and35 gm protein. She is instructed to f/u with GI clinic in 2 weeks.Discharge Information:and Continuing Care:Discharge Instructions:Activity: activity as tolerated. May shower.. May return to school/work.Nutrition/Diet: regular Tube Feeding Product: 1 Boost Plus mixed with 1.5L water Feeding Route: NG Schedule: overnight Frequency of Feeding: continuous Volume: 900ml Rate Per Hour: 90 ml/hr Comments: Run over 10 hoursFollow Up Appointments:Follow-Up Appointment 01: Physician/Dept/Service: Pediatric Gastroenterology-Jessica Coello NP Reason for Referral: Hospital Follow-up Call to Schedule in: Your appointment is Saturday September 02, 2017 at3:30 pm. Location: [place] [address] Mzlhol-Up Appointment 02: Physician/Dept/Service: Neurology: Caty Simpson Call to Schedule in: 1st available Scheduled Date/Time: 31-Aug-2017 14:00 Location: [address] [place] [address] Rzytci-Up Appointment 03: Physician/Dept/Service: ENT (ear, nose, and throat) Reason for Referral: Follow-up after nasal cautery Call to Schedule in: 6 weeks Discharge Medications: Home Medication atenolol - orally Qvar 80 mcg/inh inhalation aerosol - 1 puff(s) inhaled 2 times a day fludocortisone - 0.1 gram(s) orally 2 times a day fludrocortisone 0.1 mg oral tablet - 1 tab(s) orally 2 times a day Zofran 8 mg oral tablet - 1 tab(s) orally 4 times a day as needed for nausea promethazine 25 mg oral tablet - 1 tab(s) orally every 12 hours as needed fornasuea and vomiting cyproheptadine 4 mg oral tablet - 1 cap(s) orally 2 times a day hyoscyamine 0.125 mg oral tablet - 2 tab(s) orally every 8 hours polyethylene glycol 3350 oral powder for reconstitution - 17 gram(s) orallyevery 24 hours magnesium oxide 400 mg (241.3 mg elemental magnesium) oral tablet - 1 tab(s)orally once a day Prevacid 30 mg oral delayed release capsule - 1 cap(s) orally once a day B2-400 oral capsule - 400 milligram(s) orally once a day PRN MedicationLab Results - Pending: NoneRadiology Results - Pending: NoneAttestation:Cosign/Atte station:.: Attestation: I saw and evaluated the patient. I personally obtained the keyand critical portions of the history and physical exam or was physicallypresent for peacock and critical portions performed by the resident/fellow. Ireviewed the resident/fellow?s documentation and discussed the patient with theresident/fellow. I agree with the resident/fellow?s medical decision making asdocumented in the resident?s noteI personally evaluated the patient (as noted in the above attestation) on:24-Aug-2017.: Electronic Signatures:Adeola Colon) (Signed 24-Aug-2017 23:59) Authored: Summary Content, Ongoing Care, Attestation Co-Signer: Send Summary, Summary Content, Ongoing Care, AttestationCarl Richards (Fellow)) (Signed 24-Aug-2017 20:58) Authored: Send Summary, Summary Content, Ongoing Care, AttestationLast Updated: 24-Aug-2017 23:59 by Adeola Colon () Normal [facility] PD ABDOMEN, SINGLE VIEWon PD ABDOMEN, SINGLE VIEW Name: PILI PARIKH STUDY:PD ABDOMEN, SINGLE VIEW; 08/21/2017 12:35 pm INDICATION:Signs/Symptoms: NG placement. COMPARISON:None. ORDERING CLINICIAN:NILAY BOATENG FINDINGS:Tip of NG overlies the gastric body. There is a nonobstructive bowel gas pattern. Visualized soft tissues and osseous structures are unremarkable. The lung bases are clear. IMPRESSION:Tip of NG overlies the gastric body.Electronically signed by: COREY JOHNS PHYSICIAN Normal [facility] NR MRI BRAIN WOon 08-13-2017 NR MRI BRAIN WO Name: PILI PARIKH STUDY:NR MRI BRAIN WO; 08/13/2017 10:50 am INDICATION:Signs/Symptoms: intractible vomiting and migraines with familyhistory of chiari malformation.. COMPARISON:None. ORDERING CLINICIAN:YANA HILLS TECHNIQUE:Axial T2, FLAIR, DWI and axial, sagittal and coronal T1 weightedimages of brain were acquired. FINDINGS:Some of the images are degraded by motion artifacts. CSF Spaces: The ventricles, sulci and basal cisterns are withinnormal limits. Parenchyma: There is no diffusion restriction abnormality to suggestacute ischemia. There is no focal parenchymal signal abnormality.There is no mass effect or midline shift. The corpus callosum is intact. There is no Chiari malformation. Thepituitary gland appears unremarkable. Paranasal Sinuses and Mastoids: Visualized paranasal sinuses andmastoid air cells are unremarkable. IMPRESSION:No evidence of acute infarct, intracranial mass effect or midlineshift. No evidence of Chiari malformation. [facility].Electronicall y signed by: SABAS GARCIA MD Normal [facility] by [facility] Surgical Pathology Depar tmenton 08-11-2017 [facility] Surgical Pathology Department Name PILI PARIKH Pathologist: CHRISTINE PANDA, MDDate of Procedure: 08/11/2017Date Received: 08/11/2017Date Reported 08/12/2017Submitting Physician: AIMEE ALEMAN MDLocation: [id number] Copy To/Referring/Attending:DALI MCINTOSH M.D. Other External # FINAL DIAGNOSISA. ESOPHAGUS:--SQUAMOUS ESOPHAGEAL MUCOSA; NO PATHOLOGIC DIAGNOSISB. STOMACH:--FOCAL CHRONIC (INACTIVE) ANTRAL GASTRITIS; NO H. PYLORI IDENTIFIED--GASTRIC FUNDIC MUCOSA, NO PATHOLOGIC DIAGNOSISC. DUODENUM:--DUODENAL MUCOSA; NO PATHOLOGIC DIAGNOSIS Electronically Signed Out By CHRISTINE PANDA MD/Lilibeth the signature on this report, the individual or group listed as making theFinal Interpretation/Diagnosis certifies that they have reviewed this case. Clinical History:12 yo female with vomiting. EGD: normalSpecimens Submitted As:A: E-ESOPHAGUS B: G-STOMACH C: D-DUODENUM Gross Description:A: Received in formalin, labeled with the patient's name and hospital numberand E , are multiple fragments of parrish, soft tissue aggregating to 1.4 x 0.5by less than 0.1 cm. The specimen is submitted in toto in one cassette.MXWB: Received in formalin, labeled with the patient's name and hospital numberand G , are multiple fragments of parrish, soft tissue aggregating to 0.8 x 0.3 x0.1 cm. The specimen is submitted in toto in one cassette.MXWC: Received in formalin, labeled with the patient's name and hospital numberand D , are multiple fragments of parrish, soft tissue aggregating to 0.8 x 0.3 x0.1 cm. The specimen is submitted in toto in one cassette.MXWmxw/08/11/2017 Normal [facility] Comment on above: Performed By: #### T 4FRE ####[facility] [place] [address] AMYLASEon 08-10-2017 Amylase enzyme act/vol 19 U/L Normal 18 - 76 [facility] Comment on above: Performed By: #### V TDOH ####[facility] [place] [address] C-REACTIVE PROTEINon 017 CRP mass conc 0.34 mg/dL Normal [facility] Comment on above: Result Comment: REF VALUE< 1.00 Performed By: #### V TDOH ####[facility] [place] [address] CBC AND DIFFERENTIALon 08-10 % AUTOMATED IMMATURE GRAN 0.3 % Normal 0.0 - 1.0 [facility] Comment on above: Result Comment: Perc ent differential counts (%) should be interpreted in the context of the absolute cell counts (cells/L). Performed By: #### V TDOH ####[facility] [place] [address] % NEUTROPHIL 52.9 % Normal 33.0 - 69.0 [facility] Comment on above: Performed By: #### V TDOH ####[facility] [place] [address] Basophils/100 WBC Auto (Bld) 0.4 % Normal 0.0 - 1.0 [facility] Comment on above: Performed By: #### V TDOH ####[facility] [place] [address] Basophils/100 WBC Auto (Bld) 0.03 x10E9/L Normal 0.00 - 0.10 [facility] Comment on above: Performed By: #### V TDOH ####[facility] [place] [address] Eosinophils Auto #/vol (Bld) 0.29 10*3/uL Normal 0.00 - 0.70 [facility] Comment on above: Performed By: #### V TDOH ####[facility] [place] [address] Eosinophils/100 WBC Auto (Bld) 4.2 % Normal 0.0 - 5.0 [facility] Comment on above: Performed By: #### V TDOH ####[facility] [place] [address] Erythrocyte distribution width Auto Ratio (RBC) 14.1 % Normal 11.5 - 14.5 [facility] Comment on above: Performed By: #### V TDOH ####[facility] [place] [address] Hematocrit Auto Volume Fraction (Bld) 35.4 % Low 36.0 - 46.0 [facility] Comment on above: Performed By: #### V TDOH ####[facility] [place] [address] Hemoglobin mass conc (Bld) 11.0 g/dL Low 12.0 - 16.0 [facility] Comment on above: Performed By: #### V TDOH ####[facility] [place] [address] Lymphocytes Auto #/vol (Bld) 2.33 10*3/uL Normal 1.80 - 4.80 [facility] Comment on above: Performed By: #### V TDOH ####[facility] [place] [address] Lymphocytes/100 WBC Auto (Bld) 33.8 % Normal 28.0 - 48.0 [facility] Comment on above: Performed By: #### V TDOH ####[facility] [place] [address] MCHC Auto mass conc (RBC) 31.1 g/dL Normal 31.0 - 37.0 [facility] Comment on above: Performed By: #### V TDOH ####[facility] [place] [address] MCV Auto Entitic volume (RBC) 80 fL Normal 78 - 102 [facility] Comment on above: Performed By: #### V TDOH ####[facility] [place] [address] Monocytes Auto #/vol (Bld) 0.58 10*3/uL Normal 0.10 - 1.00 [facility] Comment on above: Performed By: #### V TDOH ####[facility] [place] [address] Monocytes/100 WBC Auto (Bld) 8.4 % Normal 3.0 - 9.0 [facility] Comment on above: Performed By: #### V TDOH ####[facility] [place] [address] Neutrophils Auto #/vol (Bld) 3.65 10*3/uL Normal 1.20 - 7.70 [facility] Comment on above: Performed By: #### V TDOH ####[facility] [place] [address] Nucleated RBC/100 WBC Ratio (Bld) 0.0 /100 WBC Normal 0.0-0.0 [facility] Comment on above: Performed By: #### V TDOH ####[facility] [place] [address] Platelets Auto #/vol (Bld) 256 10*3/uL Normal 150 - 400 [facility] Comment on above: Performed By: #### V TDOH ####[facility] [place] [address] RBC Auto #/vol (Bld) 4.40 x10E12/L Normal 4.10 - 5.20 [facility] Comment on above: Performed By: #### V TDOH ####[facility] [place] [address] WBC Auto #/vol (Bld) 6.9 10*3/uL Normal 4.5 - 13.5 [facility] Comment on above: Performed By: #### V TDOH ####[facility] [place] [address] CELIAC DISEASE SEROLOGY PANE Tushar 08-10-2017 GLIADIN ABS, IGA 0 Normal 0 - 14 [facility] Comment on above: Result Comment: Fals e negative Deamidated Gliadin Peptide Antibody, IgA results can occur in patients already adhering to a gluten-free diet or patients with IgA deficiency. Tissue Transglutaminase Antibody, IgA is the preferred test for screening patients with suspected Celiac Disease. Performed By: #### T 4FRE ####[facility] [place] [address] GLIADIN ABS, IGG <1 Normal 0 - 14 [facility] Comment on above: Result Comment: Fals e negative Deamidated Gliadin Peptide Antibody, IgG results can occur in patients already adhering to a gluten-free diet. Tissue Transglutaminase Antibody, IgA is the preferred test for screening patients with suspected Celiac Disease. Performed By: #### T 4FRE ####[facility] [place] [address] TTG AB,IGA <1 Normal 0 - 14 [facility] Comment on above: Result Comment: Loni ac disease is unlikely. False negative Tissue Transglutaminase Antibody, IgA results can occur in approximately 10% of patients with celiac disease, patients already adhering to a gluten-free diet, or patients with IgA deficiency. Performed By: #### T 4FRE ####[facility] [place] [address] TTG AB,IGG <1 Normal 0 - 14 [facility] Comment on above: Result Comment: Fals e negative Tissue Transglutaminase Antibody, IgG results can occur in patients already adhering to a gluten-free diet. Tissue Transglutaminase Antibody, IgA is the preferred test for screening patients with suspected Celiac Disease. Performed By: #### T 4FRE ####[facility] [place] [address] COAGULATION SCREENon 017 aPTT Coag time (Bld) 28 s Normal 25 - 36 [facility] Comment on above: Result Comment: THE APTT IS NO LONGER USED FOR MONITORING UNFRACTIONATED HEPARIN THERAPY. FOR MONITORING HEPARIN THERAPY, USE THE HEPARIN ASSAY. Performed By: #### V TDOH ####[facility] [place] [address] INR Coag RelTime (PPP) 1.1 {INR} Normal 0.9 - 1.1 [facility] Comment on above: Performed By: #### V TDOH ####[facility] [place] [address] Prothrombin time (PT) Coag time (PPP) 12.1 s Normal 9.8 - 12.7 [facility] Comment on above: Performed By: #### V TDOH ####[facility] [place] [address] HEPATIC FUNCTION PANELon ALP enzyme act/vol 128 U/L Normal 52 - 239 [facility] Comment on above: Performed By: #### V TDOH ####[facility] [place] [address] ALT enzyme act/vol 39 U/L High 3 - 28 [facility] Comment on above: Result Comment: Christen ents treated with Sulfasalazine may generate falsely decreased results for ALT. Performed By: #### V TDOH ####[facility] [place] [address] AST enzyme act/vol 27 U/L High 9 - 24 [facility] Comment on above: Performed By: #### V TDOH ####[facility] [place] [address] Bilirubin mass conc 0.4 mg/dL Normal 0.0 - 0.9 [facility] Comment on above: Performed By: #### V TDOH ####[facility] [place] [address] Bilirubin.direct mass conc 0.1 mg/dL Normal 0.0 - 0.3 [facility] Comment on above: Performed By: #### V TDOH ####[facility] [place] [address] Protein mass conc 5.7 g/dL Low 6.2 - 7.7 [facility] Comment on above: Performed By: #### V TDOH ####[facility] [place] [address] LIPASEon 08-10-2017 Lipase enzyme act/vol 16 U/L Normal 9 - 82 [facility] Comment on above: Result Comment: Shanda puncture immediately after or during the administration of Metamizole may lead to falsely low results. Testing should be performed immediately prior to Metamizole dosing. Performed By: #### V TDOH ####[facility] [place] [address] RENAL FUNCTION PANELon 08-10 Albumin mass conc 3.8 g/dL Normal 3.4 - 5.0 [facility] Comment on above: Performed By: #### T 4FRE ####[facility] [place] [address] Performed By: #### V TDOH ####[facility] [place] [address] Anion gap 3 molar conc 13 mmol/L Normal 10 - 30 [facility] Comment on above: Performed By: #### T 4FRE ####[facility] [place] [address] Calcium mass conc 9.2 mg/dL Normal 8.5 - 10.7 [facility] Comment on above: Performed By: #### T 4FRE ####[facility] [place] [address] Chloride molar conc 106 mmol/L Normal 98 - 107 [facility] Comment on above: Performed By: #### T 4FRE ####[facility] [place] [address] Creatinine mass conc 0.56 mg/dL Normal 0.50 - 1.00 [facility] Comment on above: Performed By: #### T 4FRE ####[facility] [place] [address] Glucose mass conc 106 mg/dL High 74 - 99 [facility] Comment on above: Performed By: #### T 4FRE ####[facility] [place] [address] HCO3 molar conc (Bld) 26 mmol/L Normal 18 - 27 [facility] Comment on above: Performed By: #### T 4FRE ####[facility] [place] [address] Phosphate mass conc 4.3 mg/dL Normal 3.0 - 5.4 [facility] Comment on above: Result Comment: The performance characteristics of phosphorus testing in heparinized plasma have been validated by the individual laboratory site where testing is performed. Testing on heparinized plasma is not approved by the FDA; however, such approval is not necessary. Performed By: #### T 4FRE ####[facility] [place] [address] Potassium molar conc 3.9 mmol/L Normal 3.5 - 5.3 [facility] Comment on above: Performed By: #### T 4FRE ####[facility] [place] [address] Sodium molar conc 141 mmol/L Normal 136 - 145 [facility] Comment on above: Performed By: #### T 4FRE ####[facility] [place] [address] Urea nitrogen mass conc 11 mg/dL Normal 6 - 23 [facility] Comment on above: Performed By: #### T 4FRE ####[facility] [place] [address] AMYLASEon 08-09-2017 Amylase enzyme act/vol 22 U/L Normal 18 - 76 [facility] Comment on above: Performed By: #### A MY ####[facility] [place] [address] C-REACTIVE PROTEINon 017 CRP mass conc 0.36 mg/dL Normal [facility] Comment on above: Result Comment: REF VALUE< 1.00 Performed By: #### C RP ####[facility] [place] [address] CBC AND DIFFERENTIALon 08-09 % AUTOMATED IMMATURE GRAN 0.3 % Normal 0.0 - 1.0 [facility] Comment on above: Result Comment: Perc ent differential counts (%) should be interpreted in the context of the absolute cell counts (cells/L). Performed By: #### C BCDF ####[facility] [place] [address] % NEUTROPHIL 60.6 % Normal 33.0 - 69.0 [facility] Comment on above: Performed By: #### C BCDF ####[facility] [place] [address] Basophils/100 WBC Auto (Bld) 0.04 x10E9/L Normal 0.00 - 0.10 [facility] Comment on above: Performed By: #### C BCDF ####[facility] [place] [address] Basophils/100 WBC Auto (Bld) 0.5 % Normal 0.0 - 1.0 [facility] Comment on above: Performed By: #### C BCDF ####[facility] [place] [address] Eosinophils Auto #/vol (Bld) 0.28 10*3/uL Normal 0.00 - 0.70 [facility] Comment on above: Performed By: #### C BCDF ####[facility] [place] [address] Eosinophils/100 WBC Auto (Bld) 3.6 % Normal 0.0 - 5.0 [facility] Comment on above: Performed By: #### C BCDF ####[facility] [place] [address] Erythrocyte distribution width Auto Ratio (RBC) 14.4 % Normal 11.5 - 14.5 [facility] Comment on above: Performed By: #### C BCDF ####[facility] [place] [address] Hematocrit Auto Volume Fraction (Bld) 37.7 % Normal 36.0 - 46.0 [facility] Comment on above: Performed By: #### C BCDF ####[facility] [place] [address] Hemoglobin mass conc (Bld) 11.5 g/dL Low 12.0 - 16.0 [facility] Comment on above: Performed By: #### C BCDF ####[facility] [place] [address] Lymphocytes Auto #/vol (Bld) 2.20 10*3/uL Normal 1.80 - 4.80 [facility] Comment on above: Performed By: #### C BCDF ####[facility] [place] [address] Lymphocytes/100 WBC Auto (Bld) 28.2 % Normal 28.0 - 48.0 [facility] Comment on above: Performed By: #### C BCDF ####[facility] [place] [address] MCHC Auto mass conc (RBC) 30.5 g/dL Low 31.0 - 37.0 [facility] Comment on above: Performed By: #### C BCDF ####[facility] [place] [address] MCV Auto Entitic volume (RBC) 82 fL Normal 78 - 102 [facility] Comment on above: Performed By: #### C BCDF ####[facility] [place] [address] Monocytes Auto #/vol (Bld) 0.53 10*3/uL Normal 0.10 - 1.00 [facility] Comment on above: Performed By: #### C BCDF ####[facility] [place] [address] Monocytes/100 WBC Auto (Bld) 6.8 % Normal 3.0 - 9.0 [facility] Comment on above: Performed By: #### C BCDF ####[facility] [place] [address] Neutrophils Auto #/vol (Bld) 4.73 10*3/uL Normal 1.20 - 7.70 [facility] Comment on above: Performed By: #### C BCDF ####[facility] [place] [address] Nucleated RBC/100 WBC Ratio (Bld) 0.0 /100 WBC Normal 0.0-0.0 [facility] Comment on above: Performed By: #### C BCDF ####[facility] [id number] [place] [address] Platelets Auto #/vol (Bld) 290 10*3/uL Normal 150 - 400 [facility] Comment on above: Performed By: #### C BCDF ####[id number] [place] [address] RBC Auto #/vol (Bld) 4.62 x10E12/L Normal 4.10 - 5.20 [facility] Comment on above: Performed By: #### C BCDF ####[id number] [place] [address] WBC Auto #/vol (Bld) 7.8 10*3/uL Normal 4.5 - 13.5 [facility] Comment on above: Performed By: #### C BCDF ####[id number] [place] [address] COAGULATION SCREENon 017 aPTT Coag time (Bld) 29 s Normal 25 - 36 [facility] Comment on above: Result Comment: THE APTT IS NO LONGER USED FOR MONITORING UNFRACTIONATED HEPARIN THERAPY. FOR MONITORING HEPARIN THERAPY, USE THE HEPARIN ASSAY. Performed By: #### V TDOH ####[id number] [place] [address] INR Coag RelTime (PPP) 1.2 {INR} High 0.9 - 1.1 [facility] Comment on above: Performed By: #### V TDOH ####[id number] [place] [address] Prothrombin time (PT) Coag time (PPP) 12.9 s High 9.8 - 12.7 [facility] Comment on above: Performed By: #### V TDOH ####[id number] [place] [address] ESR-WESTERGRENon 08-09-2017 ESR-WESTERGREN 8 mm/h Normal 0 - 13 [facility] Comment on above: Performed By: #### V TDOH ####[id number] [place] [address] GGTon 08-09-2017 GGT 20 U/L Normal 5 - 20 [facility] Comment on above: Performed By: #### G GT ####[id number] [place] [address] HEMOGLOBIN A1Con 08-09-2017 Hemoglobin A1c/Hemoglobin.total mass fraction (Bld) 5.6 % Normal [facility] Comment on above: Result Comment: Diag nosis of Diabetes-Adults Non-Diabetic: < or = 5.6% Increased risk for developing diabetes: 5.7-6.4% Diagnostic of diabetes: > or = 6.5%. Monitoring of Diabetes Age (y) Therapeutic Goal (%) Adults: >18 <7.0 Pediatrics: 13-18 <7.5 7-12 <8.0 0- 6 7.5-8.5 Citizen Of [place] [employer]. Diabetes Care 33(S1), Nov 2009. Performed By: #### V TDOH ####[id number] [place] [address] HEPATIC FUNCTION PANELon ALP enzyme act/vol 133 U/L Normal 52 - 239 [facility] Comment on above: Performed By: #### H EPFP ####[id number] [place] [address] ALT enzyme act/vol 41 U/L High 3 - 28 [facility] Comment on above: Result Comment: Christen ents treated with Sulfasalazine may generate falsely decreased results for ALT. Performed By: #### H EPFP ####[id number] [place] [address] AST enzyme act/vol 25 U/L High 9 - 24 [facility] Comment on above: Performed By: #### H EPFP ####[id number] [place] [address] Bilirubin mass conc 0.3 mg/dL Normal 0.0 - 0.9 [facility] Comment on above: Performed By: #### H EPFP ####[id number] [place] [address] Bilirubin.direct mass conc 0.1 mg/dL Normal 0.0 - 0.3 [facility] Comment on above: Performed By: #### H EPFP ####[id number] [place] [address] Protein mass conc 6.7 g/dL Normal 6.2 - 7.7 [facility] Comment on above: Performed By: #### H EPFP ####[id number] [place] [address] IRON + TIBCon 08-09-2017 % SATURATION 13 % Low 25 - 45 [facility] Comment on above: Performed By: #### I RONT ####[id number] [place] [address] Iron mass conc 53 ug/dL Normal 23 - 138 [facility] Comment on above: Performed By: #### I RONT ####[id number] [place] [address] TIBC 407 ug/dL Normal 240 - 445 [facility] Comment on above: Performed By: #### I RONT ####[id number] [place] [address] LIPASEon 08-09-2017 Lipase enzyme act/vol 17 U/L Normal 9 - 82 [facility] Comment on above: Result Comment: Shanda puncture immediately after or during the administration of Metamizole may lead to falsely low results. Testing should be performed immediately prior to Metamizole dosing. Performed By: #### L IPAS ####[id number] [place] [address] RENAL FUNCTION PANELon 08-09 Albumin mass conc 4.3 g/dL Normal 3.4 - 5.0 [facility] Comment on above: Performed By: #### V TDOH ####[id number] [place] [address] Performed By: #### H EPFP ####[facility] [place] [address] Anion gap 3 molar conc 13 mmol/L Normal 10 - 30 [facility] Comment on above: Performed By: #### V TDOH ####[id number] [place] [address] Calcium mass conc 9.5 mg/dL Normal 8.5 - 10.7 [facility] Comment on above: Performed By: #### V TDOH ####[id number] [place] [address] Chloride molar conc 105 mmol/L Normal 98 - 107 [facility] Comment on above: Performed By: #### V TDOH ####[facility] [place] [address] Creatinine mass conc 0.50 mg/dL Normal 0.50 - 1.00 [facility] Comment on above: Performed By: #### V TDOH ####[id number] [place] [address] Glucose mass conc 83 mg/dL Normal 74 - 99 [facility] Comment on above: Performed By: #### V TDOH ####[id number] [place] [address] HCO3 molar conc (Bld) 27 mmol/L Normal 18 - 27 [facility] Comment on above: Performed By: #### V TDOH ####[facility] [place] [address] Phosphate mass conc 4.1 mg/dL Normal 3.0 - 5.4 [facility] Comment on above: Result Comment: The performance characteristics of phosphorus testing in heparinized plasma have been validated by the individual laboratory site where testing is performed. Testing on heparinized plasma is not approved by the FDA; however, such approval is not necessary. Performed By: #### V TDOH ####[facility] [place] [address] Potassium molar conc 4.1 mmol/L Normal 3.5 - 5.3 [facility] Comment on above: Performed By: #### V TDOH ####[id number] [place] [address] Sodium molar conc 141 mmol/L Normal 136 - 145 [facility] Comment on above: Performed By: #### V TDOH ####[id number] [place] [address] Urea nitrogen mass conc 11 mg/dL Normal 6 - 23 [facility] Comment on above: Performed By: #### V TDOH ####[facility] [place] [address] THYROXINE,FREEon 08-09-2017 THYROXINE,FREE 1.08 ng/dL Normal 0.78 - 1.48 [facility] Comment on above: Result Comment: Thyr oxine Free testing is performed using different testing methodology at [facility] than at other [facility]. Direct result comparisons should only be made within the same method.. Patients receiving more than 5 mg/day of biotin may have interference in test results. A sample should be taken no sooner than eight hours after previous dose. Contact [phone] for additional information. Performed By: #### T 4FRE ####[facility] [place] [address] TSHon 08-09-2017 Thyrotropin Qn 1.71 m[IU]/L Normal 0.44 - 3.98 [facility] Comment on above: Result Comment: TSH testing is performed using different testing methodology at [facility] than at other [facility]. Direct result comparisons should only be made within the same method.. Patients receiving more than 5 mg/day of biotin may have interference in test results. A sample should be taken no sooner than eight hours after previous dose. Contact [phone] for additional information. Performed By: #### T SH2 ####[facility] [place] [address] VITAMIN D, 25-HYDROXYon 07-29 VITAMIN D, 25-HYDROXY 28 ng/mL Abnormal [facility] Comment on above: Result Comment: .DEF ICIENCY: < 20 NG/MLINSUFFICIENCY: 20-29 NG/MLOPTIMUM LEVEL: 30-80 NG/MLPOSSIBLE TOXICITY: > 80 NG/MLTHIS ASSAY ACCURATELY QUANTIFIES THE SUM OFVITAMIN D3, 25-HYDROXY AND VIT D2,25-HYDROXY. Performed By: #### V TDOH ####[facility] [place] [address] Vital Signs Date Time Vital Sign Value Performing Clinician Facility 03-15-2024 13:43-0400 Diastolic blood pressure 89 mm[Hg] [facility] 03-15-2024 13:43-0400 Heart rate 51 /min [facility] 03-15-2024 13:43-0400 Mean blood pressure 107 mm[Hg] [facility] 03-15-2024 13:43-0400 Respiratory rate 16 /min [facility] 03-15-2024 13:43-0400 SaO2% (BldA) [Mass fraction] 100 % [facility] 03-15-2024 13:43-0400 Systolic blood pressure 144 mm[Hg] [facility] 03-15-2024 12:01-0400 Diastolic blood pressure 87 mm[Hg] [facility] 03-15-2024 12:01-0400 Heart rate 52 /min [facility] 03-15-2024 12:01-0400 Mean blood pressure 107 mm[Hg] [facility] 03-15-2024 12:01-0400 SaO2% (BldA) [Mass fraction] 100 % [facility] 03-15-2024 12:01-0400 Systolic blood pressure 148 mm[Hg] [facility] 03-15-2024 10:35-0400 Body temperature 97.52 [degF] [facility] 03-15-2024 10:35-0400 Diastolic blood pressure 86 mm[Hg] [facility] 03-15-2024 10:35-0400 Heart rate 60 /min [facility] 03-15-2024 10:35-0400 Respiratory rate 18 /min [facility] 03-15-2024 10:35-0400 SaO2% (BldA) [Mass fraction] 98 % [facility] 10:35-0400 Systolic blood pressure 143 mm[facility]Hg[facility] 03-13-2024 22:00-0400 Diastolic blood pressure 105 mm[Hg] Femi Ernandeze [facility] 03-13-2024 22:00-0400 Heart rate 53 /min Femi Jessie [facility] 03-13-2024 22:00-0400 Mean blood pressure 117 mm[Hg] Femi Jessie [facility] 03-13-2024 22:00-0400 SaO2% (BldA) [Mass fraction] 100 % Femi Jessie [facility] 03-13-2024 22:00-0400 Systolic blood pressure 140 mm[Hg] Femi Jessie [facility] 03-13-2024 21:00-0400 Diastolic blood pressure 106 mm[Hg] Femi Jessie [facility] 03-13-2024 21:00-0400 Heart rate 93 /min Femi Jessie [facility] 03-13-2024 21:00-0400 Mean blood pressure 119 mm[Hg] Femi Jessie [facility] 03-13-2024 21:00-0400 Respiratory rate 21 /min Femi Jessie [facility] 03-13-2024 21:00-0400 SaO2% (BldA) [Mass fraction] 98 % Femi Jessie [facility] 03-13-2024 21:00-0400 Systolic blood pressure 144 mm[Hg] Femi Jessie [facility] 03-13-2024 20:00-0400 Diastolic blood pressure 103 mm[Hg] Femi Ernandeze [facility] 03-13-2024 20:00-0400 Heart rate 50 /min Femi Ernandeze [facility] 03-13-2024 20:00-0400 Mean blood pressure 120 mm[Hg] Femi Ernanedze [facility] 03-13-2024 20:00-0400 Systolic blood pressure 153 mm[Hg] Femi Ernandeze [facility] 03-13-2024 19:38-0400 Respiratory rate 14 /min Femi Ernandeze [facility] 03-13-2024 18:36-0400 Respiratory rate 18 /min Femi Ernandeze [facility] 03-13-2024 17:51-0400 Body temperature 98.24 [degF] Femi Ernandeze [facility] 03-13-2024 17:36-0400 Body temperature 98.24 [degF] Femi Ernandeze [facility] 03-13-2024 17:36-0400 Heart rate 61 /min Femi Ernandeze [facility] 03-13-2024 17:36-0400 Respiratory rate 18 /min Femi Ernandeze [facility] 07-31-2023 18:09-0400 Body height 157.48 cm [facility] Work Phone[facility] 07-31-2023 18:09-0400 Body temperature 98.6 [degF] [facility] Work Phone: [facility] 07-31-2023 18:09-0400 Body weight 84 kg [facility] [employer] Work Phone: [facility] 07-31-2023 18:09-0400 Diastolic blood pressure 106 mm[Hg] [facility] Work Phone: [facility] 07-31-2023 18:09-0400 Heart rate 87 /min [facility] Work Phone: [facility] 07-31-2023 18:09-0400 Respiratory rate 18 /min [facility] Work Phone: [facility] 07-31-2023 18:09-0400 SaO2% (BldA) [Mass fraction] 98 % [facility] Work Phone: [facility] 07-31-2023 18:09-0400 Systolic blood pressure 150 mm[Hg] [facility] Work Phone: [facility] 05-25-2023 13:11-0400 Diastolic blood pressure 96 mm[Hg] [facility] Work Phone: [facility] 05-25-2023 13:11-0400 Heart rate 60 /min [facility] Work Phone: [facility] 05-25-2023 13:11-0400 Respiratory rate 16 /min [facility] Work Phone: [facility] 05-25-2023 13:11-0400 SaO2% (BldA) [Mass fraction] 97 % [facility] Work Phone: [facility] 05-25-2023 13:11-0400 Systolic blood pressure 160 mm[Hg] [facility] Work Phone: [facility] 05-25-2023 11:56-0400 Inhaled oxygen flow rate 6 L/min [facility] Work Phone: [facility] 05-25-2023 11:54-0400 Body temperature 97.2 [degF] [facility] Work Phone: [facility] 05-25-2023 09:39-0400 Body height 160.02 cm [facility] Work Phone: [facility] 05-25-2023 09:39-0400 Body mass index (BMI) [Percentile] Per age and sex 96.6 % [facility] [employer] Work Phone: [facility] 05-25-2023 09:39-0400 Body mass index (BMI) [Ratio] 33.6 kg/m2 [facility] Work Phone: [facility] 05-25-2023 09:39-0400 Body weight 86.18 kg [facility] [employer] Work Phone: [facility] 05-23-2023 08:00-0400 Body height 157.48 cm [facility] Other [employer] Other 05-23-2023 08:00-0400 Body mass index (BMI) [Ratio] 34.75 kg/m2 [facility] [employer] Other 05-23-2023 08:00-0400 Body weight 86.18 kg [facility] [employer] Other 01-07-2023 14:08-0500 Body height 157.48 cm [facility] Work Phone: [facility] 01-07-2023 12:34-0500 Body temperature 98.1 [degF] [facility] Work Phone: [facility] 01-07-2023 12:34-0500 Diastolic blood pressure 86 mm[Hg] [facility] Work Phone: [facility] 01-07-2023 12:34-0500 Heart rate 75 /min [facility] [employer] Work Phone: [facility] 01-07-2023 12:34-0500 SaO2% (BldA) [Mass fraction] 100 % [facility] [employer] Work Phone: [facility] 01-07-2023 12:34-0500 Systolic blood pressure 147 mm[Hg] [facility] Work Phone: [facility] 01-07-2023 11:57-0500 Respiratory rate 18 /min [facility] Work Phone: [facility] 01-07-2023 06:00-0500 Body weight 78.2 kg [facility] Work Phone: [facility] 01-06-2023 18:29-0500 Diastolic blood pressure 82 mm[Hg] [facility] Work Phone: [facility] 01-06-2023 18:29-0500 Heart rate 64 /min [facility] Work Phone: [facility] 01-06-2023 18:29-0500 Respiratory rate 16 /min [facility] Work Phone: [facility] 01-06-2023 18:29-0500 SaO2% (BldA) [Mass fraction] 98 % [facility] Work Phone: [facility] 01-06-2023 18:29-0500 Systolic blood pressure 139 mm[Hg] [facility] Work Phone: [facility] 01-06-2023 11:12-0500 Body height 157.48 cm [facility] Work Phone: [facility] 01-06-2023 11:12-0500 Body temperature 98 [degF] [facility] Work Phone: [facility] 01-06-2023 11:12-0500 Body weight 77.11 kg [facility] Work Phone: [facility] 01-02-2023 04:00-0500 Heart rate 62 /min [facility] Work Phone: [facility] 01-02-2023 04:00-0500 Respiratory rate 18 /min [facility] Work Phone: [facility] 01-02-2023 04:00-0500 SaO2% (BldA) [Mass fraction] 100 % [facility] Work Phone: [facility] 01-02-2023 02:37-0500 Diastolic blood pressure 85 mm[Hg] [facility] Work Phone: [facility] 01-02-2023 02:37-0500 Systolic blood pressure 155 mm[Hg] [facility] Work Phone: [facility] 01-02-2023 01:14-0500 Body height 157.48 cm [facility] [employer] [facility] Work Phone: [facility] 01-02-2023 01:14-0500 Body temperature 98 [degF] [facility] Work Phone: [facility] 01-02-2023 01:14-0500 Body weight 77.11 kg [facility] Work Phone: [facility] 12-31-2022 12:11-0500 Heart rate 70 /min [facility] Work Phone: [facility] 12-31-2022 12:08-0500 Body height 157.48 cm [facility] Work Phone: [facility] 12-31-2022 12:08-0500 Body temperature 97.7 [degF] [facility] Work Phone: [facility] 12-31-2022 12:08-0500 Body weight 79 kg [facility] Work Phone: [facility] 12-31-2022 12:08-0500 Diastolic blood pressure 87 mm[Hg] [facility] Work Phone: [facility] 12-31-2022 12:08-0500 Respiratory rate 18 /min [facility] Work Phone: [facility] 12-31-2022 12:08-0500 SaO2% (BldA) [Mass fraction] 99 % [facility] Work Phone: [facility] 12-31-2022 12:08-0500 Systolic blood pressure 134 mm[Hg] [facility] Work Phone: [facility] 11-09-2022 15:15-0500 Body height 157.48 cm [facility] Work Phone: [facility] 11-09-2022 15:15-0500 Body temperature 98.4 [degF] [facility] Work Phone: [facility] 11-09-2022 15:15-0500 Body weight 81.64 kg [facility] Work Phone: [facility] 11-09-2022 15:15-0500 Diastolic blood pressure 90 mm[Hg] [facility] Work Phone: [facility] 11-09-2022 15:15-0500 Heart rate 95 /min [facility] [facility] Work Phone: [facility] 11-09-2022 15:15-0500 Respiratory rate 16 /min [facility] Work Phone: [facility] 11-09-2022 15:15-0500 SaO2% (BldA) [Mass fraction] 100 % [facility] Work Phone: [facility] 11-09-2022 15:15-0500 Systolic blood pressure 140 mm[Hg] [facility] Work Phone: [facility] 11-07-2022 13:40-0500 Diastolic blood pressure 85 mm[Hg] [facility] Work Phone: [facility] 11-07-2022 13:40-0500 Heart rate 68 /min [facility] Work Phone: [facility] 11-07-2022 13:40-0500 Respiratory rate 16 /min [facility] Work Phone: [facility] 11-07-2022 13:40-0500 SaO2% (BldA) [Mass fraction] 100 % [facility] Work Phone: [facility] 11-07-2022 13:40-0500 Systolic blood pressure 119 mm[Hg] [facility] Work Phone: [facility] 11-07-2022 11:05-0500 Body temperature 98.2 [degF] [facility] Work Phone: [facility] 11-07-2022 11:04-0500 Body height 158.75 cm [facility] Work Phone: [facility] 11-07-2022 11:04-0500 Body weight 77 kg [facility] Work Phone: [facility] 11-02-2022 09:53-0500 Diastolic blood pressure 89 mm[Hg] [facility] Work Phone: [facility] 11-02-2022 09:53-0500 Heart rate 50 /min [facility] Work Phone: [facility] 11-02-2022 09:53-0500 Respiratory rate 18 /min [facility] Work Phone: [facility] 11-02-2022 09:53-0500 SaO2% (BldA) [Mass fraction] 98 % [facility] Work Phone: [facility] 11-02-2022 09:53-0500 Systolic blood pressure 156 mm[Hg] [facility] Work Phone: [facility] 11-02-2022 03:00-0500 Body height 157.48 cm [facility] Work Phone: [facility] 11-02-2022 03:00-0500 Body temperature 98.4 [degF] [facility] Work Phone: [facility] 11-02-2022 03:00-0500 Body weight 78 kg [facility] [facility] Work Phone: [facility] 10-31-2022 10:05-0500 Diastolic blood pressure 85 mm[Hg] [facility] Work Phone: [facility] 10-31-2022 10:05-0500 Heart rate 59 /min [facility] Work Phone: [facility] 10-31-2022 10:05-0500 Respiratory rate 18 /min [facility] Work Phone: [facility] 10-31-2022 10:05-0500 SaO2% (BldA) [Mass fraction] 98 % [facility] Work Phone: [facility] 10-31-2022 10:05-0500 Systolic blood pressure 137 mm[Hg] [facility] Work Phone: [facility] 10-31-2022 08:50-0500 Body height 157.48 cm [facility] Work Phone: [facility] 10-31-2022 08:50-0500 Body temperature 98.2 [degF] [facility] Work Phone: [facility] 10-31-2022 08:50-0500 Body weight 83.91 kg [facility] Work Phone: [facility] 10-29-2022 12:01-0500 Body height 157.48 cm [facility] Work Phone: [facility] 10-29-2022 12:01-0500 Body temperature 97.8 [degF] [facility] Work Phone: [facility] 10-29-2022 12:01-0500 Body weight 81 kg [facility] Work Phone: [facility] 10-29-2022 12:01-0500 Diastolic blood pressure 84 mm[Hg] [facility] Work Phone: [facility] 10-29-2022 12:01-0500 Heart rate 60 /min [facility] Work Phone: [facility] 10-29-2022 12:01-0500 Respiratory rate 18 /min [facility] Work Phone: [facility] 10-29-2022 12:01-0500 SaO2% (BldA) [Mass fraction] 99 % [facility] Work Phone: [facility] 10-29-2022 12:01-0500 Systolic blood pressure 109 mm[Hg] [facility] Work Phone: [facility] 08-22-2022 12:00-0400 Body temperature 98 [degF] [facility] Work Phone: [facility] 08-22-2022 12:00-0400 Diastolic blood pressure 78 mm[Hg] [facility] Work Phone: [facility] 08-22-2022 12:00-0400 Heart rate 80 /min [facility] Work Phone: [facility] 08-22-2022 12:00-0400 Respiratory rate 18 /min [facility] Work Phone: [facility] 08-22-2022 12:00-0400 SaO2% (BldA) [Mass fraction] 95 % [facility] Work Phone: [facility] 08-22-2022 12:00-0400 Systolic blood pressure 121 mm[Hg] [facility] Work Phone: [facility] 08-22-2022 05:50-0400 Body weight 77.5 kg [facility] Work Phone: [facility] 08-21-2022 11:27-0400 Body height 157.48 cm [facility] Work Phone: [facility] 08-20-2022 16:34-0400 Diastolic blood pressure 90 mm[Hg] [facility] Work Phone: [facility] 08-20-2022 16:34-0400 Heart rate 68 /min [facility] Work Phone: [facility] 08-20-2022 16:34-0400 Respiratory rate 20 /min [facility] Work Phone: [facility] 08-20-2022 16:34-0400 SaO2% (BldA) [Mass fraction] 96 % [facility] Work Phone: [facility] 08-20-2022 16:34-0400 Systolic blood pressure 142 mm[Hg] [facility] Work Phone: [facility] 08-20-2022 11:58-0400 Body height 157.48 cm [facility] Work Phone: [facility] 08-20-2022 11:58-0400 Body temperature 97.9 [degF] [facility] Work Phone: [facility] 08-20-2022 11:58-0400 Body weight 79.37 kg [facility] Work Phone: [facility] 08-20-2022 01:00-0400 Body temperature 97.9 [degF] [facility] Work Phone: [facility] 08-20-2022 01:00-0400 Diastolic blood pressure 72 mm[Hg] [facility] Work Phone: [facility] 08-20-2022 01:00-0400 Heart rate 53 /min [facility] Work Phone: [facility] 08-20-2022 01:00-0400 Respiratory rate 16 /min [facility] Work Phone: [facility] 08-20-2022 01:00-0400 SaO2% (BldA) [Mass fraction] 97 % [facility] Work Phone: [facility] 08-20-2022 01:00-0400 Systolic blood pressure 131 mm[Hg] [facility] Work Phone: [facility] 08-19-2022 18:57-0400 Body height 157.48 cm [facility] Work Phone: [facility] 08-19-2022 18:57-0400 Body weight 79.37 kg [facility] Work Phone: [facility] 08-19-2022 14:00-0400 Diastolic blood pressure 79 mm[Hg] [facility] Work Phone: [facility] 08-19-2022 14:00-0400 Heart rate 67 /min [facility] Work Phone: [facility] 08-19-2022 14:00-0400 Respiratory rate 20 /min [facility] Work Phone: [facility] 08-19-2022 14:00-0400 SaO2% (BldA) [Mass fraction] 99 % [facility] Work Phone: [facility] 08-19-2022 14:00-0400 Systolic blood pressure 139 mm[Hg] [facility] Work Phone: [facility] 08-19-2022 00:40-0400 Body height 157.48 cm [facility] Work Phone: [facility] 08-19-2022 00:40-0400 Body temperature 98.8 [degF] [facility] Work Phone: [facility] 08-19-2022 00:40-0400 Body weight 77.11 kg [facility] Work Phone: [facility] 08-18-2022 15:28-0400 Body temperature 97.8 [degF] [facility] Work Phone: [facility] 08-18-2022 15:28-0400 Diastolic blood pressure 90 mm[Hg] [facility] Work Phone: [facility] 08-18-2022 15:28-0400 Heart rate 54 /min [facility] Work Phone: [facility] 08-18-2022 15:28-0400 Respiratory rate 20 /min [facility] Work Phone: [facility] 08-18-2022 15:28-0400 SaO2% (BldA) [Mass fraction] 100 % [facility] Work Phone: [facility] 08-18-2022 15:28-0400 Systolic blood pressure 135 mm[Hg] [facility] Work Phone: [facility] 08-18-2022 12:26-0400 Body height 157.48 cm [facility] Work Phone: [facility] 08-18-2022 12:26-0400 Body weight 77.11 kg [facility] Work Phone: [facility] 06-09-2022 10:25-0400 Diastolic blood pressure 51 mm[Hg] [facility] Work Phone: [facility] 06-09-2022 10:25-0400 Heart rate 83 /min [facility] [employer] Work Phone: [facility] 06-09-2022 10:25-0400 Respiratory rate 20 /min [facility] Work Phone: [facility] 06-09-2022 10:25-0400 SaO2% (BldA) [Mass fraction] 98 % [facility] Work Phone: [facility] 06-09-2022 10:25-0400 Systolic blood pressure 92 mm[Hg] [facility] Work Phone: [facility] 06-09-2022 08:46-0400 Body height 157.48 cm [facility] Work Phone: [facility] 06-09-2022 08:46-0400 Body mass index (BMI) [Percentile] Per age and sex 96.2 % [facility] Work Phone: [facility] 06-09-2022 08:46-0400 Body mass index (BMI) [Ratio] 32 kg/m2 [facility] [employer] Work Phone: [facility] 06-09-2022 08:46-0400 Body temperature 97.4 [degF] [facility] Work Phone: [facility] 06-09-2022 08:46-0400 Body weight 79.37 kg [facility] Work Phone: [facility] 05-16-2022 13:52-0400 Diastolic blood pressure 96 mm[Hg] [facility] Work Phone: [facility] 05-16-2022 13:52-0400 Heart rate 66 /min [facility] Work Phone: [facility] 05-16-2022 13:52-0400 Respiratory rate 18 /min [facility] Work Phone: [facility] 05-16-2022 13:52-0400 SaO2% (BldA) [Mass fraction] 100 % [facility] Work Phone: [facility] 05-16-2022 13:52-0400 Systolic blood pressure 138 mm[Hg] [facility] Work Phone: [facility] 05-16-2022 11:54-0400 Body height 157.48 cm [facility] Work Phone: [facility] 05-16-2022 11:54-0400 Body mass index (BMI) [Percentile] Per age and sex 95.5 % [facility] Work Phone: [facility] 05-16-2022 11:54-0400 Body mass index (BMI) [Ratio] 31.1 kg/m2 [facility] Work Phone: [facility] 05-16-2022 11:54-0400 Body temperature 98.4 [degF] [facility] Work Phone: [facility] 05-16-2022 11:54-0400 Body weight 77.11 kg [facility] Work Phone: [facility] 05-15-2022 15:30-0400 Diastolic blood pressure 82 mm[Hg] [facility] Work Phone: [facility] 05-15-2022 15:30-0400 Heart rate 52 /min [facility] Work Phone: [facility] 05-15-2022 15:30-0400 Respiratory rate 14 /min [facility] Work Phone: [facility] 05-15-2022 15:30-0400 SaO2% (BldA) [Mass fraction] 99 % [facility] Work Phone: [facility] 05-15-2022 15:30-0400 Systolic blood pressure 134 mm[Hg] [facility] Work Phone: [facility] 05-15-2022 12:28-0400 Body height 157.48 cm [facility] Work Phone: [facility] 05-15-2022 12:28-0400 Body mass index (BMI) [Percentile] Per age and sex 95.5 % [facility] Work Phone: [facility] 05-15-2022 12:28-0400 Body mass index (BMI) [Ratio] 31 kg/m2 [facility] Work Phone: [facility] 05-15-2022 12:28-0400 Body temperature 98.1 [degF] [facility] Work Phone: [facility] 05-15-2022 12:28-0400 Body weight 77 kg [facility] Work Phone: [facility] 05-14-2022 22:56-0400 Body temperature 98.1 [degF] [facility] Work Phone: [facility] 05-14-2022 22:56-0400 Diastolic blood pressure 74 mm[Hg] [facility] Work Phone: [facility] 05-14-2022 22:56-0400 Heart rate 18 /min [facility] Work Phone: [facility] 05-14-2022 22:56-0400 Respiratory rate 18 /min [facility] Work Phone: [facility] 05-14-2022 22:56-0400 SaO2% (BldA) [Mass fraction] 94 % [facility] Work Phone: [facility] 05-14-2022 22:56-0400 Systolic blood pressure 137 mm[Hg] [facility] Work Phone: [facility] 05-14-2022 02:18-0400 Body height 157.48 cm [facility] Work Phone: [facility] 05-14-2022 02:18-0400 Body mass index (BMI) [Percentile] Per age and sex 95.5 % [facility] Work Phone: [facility] 05-14-2022 02:18-0400 Body mass index (BMI) [Ratio] 31.1 kg/m2 [facility] Work Phone: [facility] 05-14-2022 02:18-0400 Body temperature 97.9 [degF] [facility] Work Phone: [facility] 05-14-2022 02:18-0400 Body weight 77.11 kg [facility] Work Phone: [facility] 05-14-2022 02:18-0400 Diastolic blood pressure 65 mm[Hg] [facility] Work Phone: [facility] 05-14-2022 02:18-0400 Heart rate 54 /min [facility] Work Phone: [facility] 05-14-2022 02:18-0400 Respiratory rate 18 /min [facility] Work Phone: [facility] 05-14-2022 02:18-0400 SaO2% (BldA) [Mass fraction] 98 % [facility] Work Phone: [facility] 05-14-2022 02:18-0400 Systolic blood pressure 133 mm[Hg] [facility] Work Phone: [facility] 05-13-2022 12:09-0400 Heart rate 72 /min [facility] Work Phone: [facility] 05-13-2022 12:09-0400 Respiratory rate 18 /min [facility] [employer] Work Phone: [facility] 05-13-2022 12:09-0400 SaO2% (BldA) [Mass fraction] 98 % [facility] [employer] Work Phone: [facility] 05-13-2022 10:32-0400 Body height 156.21 cm [facility] [employer] Work Phone: [facility] 05-13-2022 10:32-0400 Body mass index (BMI) [Percentile] Per age and sex 95.9 % [facility] [employer] Work Phone: [facility] 05-13-2022 10:32-0400 Body mass index (BMI) [Ratio] 31.6 kg/m2 [facility] [employer] Phone: [facility] 05-13-2022 10:32-0400 Body temperature 98.1 [degF] [facility] [employer] Work Phone: [facility] 05-13-2022 10:32-0400 Body weight 77.11 kg [facility] [employer] Phone: [facility] 05-13-2022 10:32-0400 Diastolic blood pressure 87 mm[Hg] [facility] [employer] Phone: [facility] 05-13-2022 10:32-0400 Systolic blood pressure 145 mm[Hg] [facility] [employer] Work Phone: [facility] Encounters Encounter Date Encounter Type Care Provider Facility Start: 03-15-2024 End: 03-15-2024 Emergency department patient visit August Bermudez Facility:[facility] Start: 03-15-2024 End: 03-15-2024 [facility] Start: 03-13-2024 End: 03-14-2024 Emergency department patient visit MODESTA ARCHIBALD Facility:[facility] Start: 03-13-2024 End: 03-13-2024 Emergency department patient visit Femi Roman [facility] Start: 07-31-2023 End: 07-31-2023 Emergency department patient visit Ravi Arguello Facility:[facility] Start: 07-31-2023 End: 07-31-2023 Emergency department patient visit [facility] Work Phone: [facility] Work Phone: Start: 07-14-2023 End: 07-14-2023 ambulatory Services [facility] Facility:[facility] Start: 07-14-2023 End: 07-14-2023 ambulatory Services [facility] Work Phone: [facility] Work Phone: Start: 07-14-2023 End: 07-14-2023 Patient encounter procedure [facility] Work Phone: [facility] Start: 06-16-2023 End: 06-16-2023 ambulatory Services [facility] Facility:[facility] Start: 06-16-2023 End: 06-16-2023 ambulatory Services [facility] Work Phone: [facility] Work Phone: Start: 06-16-2023 End: 06-16-2023 Patient encounter procedure Services [facility] Work Phone: [facility] Start: 06-02-2023 Postop follow up vis it related to original px Colten [facility] Start: 06-02-2023 End: 06-02-2023 ambulatory [facility] Work Phone: [facility] Other Start: 06-02-2023 End: 06-02-2023 Patient encounter procedure Services [facility] Work Phone: [facility] Start: 05-25-2023 End: 05-25-2023 ambulatory [facility] Facility:[facility] Start: 05-25-2023 End: 05-25-2023 Admission to same day surgery center [facility] Work Phone: [facility] Start: 05-25-2023 End: 05-25-2023 ambulatory [facility] Work Phone: [facility] Work Phone: Start: 05-24-2023 End: 05-24-2023 ambulatory Colten Olexa Other [facility] Other Start: 05-24-2023 Telephone encounter Colten Wesleyxa [facility] Start: 05-23-2023 End: 05-23-2023 ambulatory Colten Olexa Other [facility] Other Start: 05-23-2023 Encounter for other preprocedural examination Colten Olexa [facility] Start: 05-23-2023 Office outpatient ne w 45 minutes Colten Olexa [facility] Start: 03-15-2023 End: 03-15-2023 ambulatory Modesta Chand Facility:[facility] Start: 03-15-2023 End: 03-15-2023 Departed Referred Services [facility] Work Phone: [facility] Start: 01-26-2023 End: 01-26-[address] DOCTOR JO Facility: Start: 01-06-2023 End: 01-07-2023 Evaluation and management of inpatient Services [facility] Facility:[facility] Start: 01-06-2023 End: 01-07-2023 Evaluation and management of inpatient Services [facility] Work Phone: [facility] Work Phone: Start: 01-06-2023 observation encounter Services [facility] Work Phone: [facility] Work Phone: Start: 01-06-2023 End: 01-07-2023 [facility] Work Phone: [facility] [place] [facility] Work Phone: Start: 01-02-2023 End: 01-02-2023 Emergency department patient visit Services [facility] Facility:[facility] Start: 01-02-2023 End: 01-02-2023 Services [facility] Work Phone: [facility] Work Phone: Start: 01-01-2023 End: 01-01-2023 ambulatory [facility] . Facility: Start: 12-31-2022 End: 12-31-2022 Emergency department patient visit Federico Randolph Facility:[facility] Start: 12-31-2022 End: 12-31-2022 Emergency department patient visit Services [facility] Work Phone: [facility] Work Phone: Start: 12-31-2022 End: 12-31-2022 Services [facility] Work Phone: [facility] Work Phone: Start: 11-09-2022 End: 11-09-2022 Emergency department patient visit Services [facility] Facility:[facility] Start: 11-09-2022 End: 11-09-2022 Emergency department patient visit Services [facility] Work Phone: [facility] Work Phone: Start: 11-09-2022 End: 11-09-2022 Services [facility] Work Phone: [facility] Start: 11-07-2022 End: 11-07-2022 Emergency department patient visit Services [facility] Work Phone: [facility] Work Phone: Start: 11-07-2022 End: 11-07-2022 Services [facility] Work Phone: [facility] Start: 11-02-2022 End: 11-02-2022 Emergency department patient visit Robert Henley Facility:[facility] Start: 11-02-2022 End: 11-02-2022 Emergency department patient visit [facility] Work Phone: [facility] Work Phone: Start: 11-02-2022 End: 11-02-2022 [facility] Work Phone: [facility] Start: 10-31-2022 End: 10-31-2022 Emergency department patient visit [facility] Facility:[facility] Start: 10-31-2022 End: 10-31-2022 Emergency department patient visit [facility] Work Phone: [facility] Work Phone: Start: 10-31-2022 End: 10-31-2022 [facility] Work Phone: [facility] Start: 10-29-2022 End: 10-29-2022 Emergency department patient visit [facility] Facility:[facility] Start: 10-29-2022 End: 10-29-2022 Emergency department patient visit [facility] Work Phone: [facility] Start: 10-29-2022 End: 10-29-2022 [facility] Work Phone: [facility] Start: 08-27-2022 End: 08-27-2022 ambulatory Modesta Chand Facility:[facility] Start: 08-27-2022 End: 08-27-2022 Departed Referred Services [facility] Work Phone: [facility] Start: 08-27-2022 End: 08-27-2022 [facility] Work Phone: [facility] Start: 08-20-2022 End: 08-22-2022 Evaluation and management of inpatient Gregorio Carey Facility:[facility] Start: 08-20-2022 End: 08-22-2022 Evaluation and management of inpatient [facility] Work Phone: [facility] [place] [facility] Start: 08-20-2022 End: 08-22-2022 [facility] Work Phone: [facility] [place] [facility] Start: 08-19-2022 End: 08-20-2022 Emergency department patient visit Gilson Castro Facility:[facility] Start: 08-19-2022 End: 08-20-2022 Emergency department patient visit [facility] Work Phone: [facility] Start: 08-19-2022 End: 08-20-2022 [facility] Work Phone: [facility] Start: 08-19-2022 End: 08-19-2022 Emergency department patient visit Colten Fry Jr Facility:[facility] Start: 08-19-2022 End: 08-19-2022 Emergency department patient visit [facility] Work Phone: [facility] Start: 08-19-2022 End: 08-19-2022 [facility] Work Phone: [facility] Start: 08-18-2022 End: 08-18-2022 Emergency department patient visit Joss Rivera Facility:[facility] Start: 08-18-2022 End: 08-18-2022 Emergency department patient visit [facility] Work Phone: [facility] Start: 08-18-2022 End: 08-18-2022 [facility] Work Phone: [facility] Start: 06-25-2022 End: 06-25-2022 Departed Referred Services [facility] Work Phone: [facility] Start: 06-09-2022 End: 06-09-2022 Admission to same day surgery center [facility] Work Phone: [facility] Start: 06-07-2022 End: 06-07-2022 Patient encounter procedure Services [facility] Work Phone: [facility] Start: 05-26-2022 End: 05-26-2022 Departed Referred Services [facility] Work Phone: [facility] Start: 05-16-2022 ambulatory Luana Mak RN NURSE [employer] Comment on above: Abdominal Pain Start: 05-16-2022 End: 05-16-2022 Emergency department patient visit [facility] Work Phone: [facility] Start: 05-15-2022 End: 05-15-2022 Emergency department patient visit [facility] Work Phone: [facility] Start: 05-14-2022 End: 05-14-2022 Emergency department patient visit [facility] Work Phone: [facility] Start: 05-14-2022 End: 05-14-2022 Emergency department patient visit Services [facility] [employer] Phone: [facility] Start: 05-13-2022 End: 05-13-2022 Emergency department patient visit Services [facility] Work Phone: [facility] Start: 06-23-2018 Evaluation and management of inpatient Radha MohanLydia Facility:[facility] Start: 06-16-2018 Patient encounter DALI B SAEEDIRAIS Fa cility:[id number] Start: 06-05-2018 Patient encounter Mere Osmin Simpson Facility:[id number] Start: 04-14-2018 Patient encounter DALI Amrit SAEEDIRAIS Fa cility:[id number] Start: 02-17-2018 Patient encounter Mere Osmin Simpson Facility:[id number] Start: 02-10-2018 Patient encounter DALI B SAEEDIRAIS Fa cility:[id number] Start: 12-16-2017 Patient encounter DALI B SAEEDIRAIS Fa cility:[id number] Start: 10-14-2017 Patient encounter DALI B SAEEDIRAIS Fa cility:[id number] Start: 09-28-2017 Patient encounter Mere Simpson Facility:[id number] Start: 08-25-2017 Patient encounter DLAI Amrit Davis cility:[facility] Start: 08-09-2017 End: 08-24-2017 Evaluation and management of inpatient AIMEE ALEMAN Facility:[facility] Procedures Date Procedure Procedure Detail Performing Clinician Start: 07-14-2023 X-ray of right knee Services [facility] Phone: Start: 06-16-2023 X-ray of right knee [facility] Phone: Start: 06-02-2023 X-ray of right knee [facility] [employer] Phone: Start: 05-25-2023 Arthroscopy of knee [facility] [employer] Phone: Start: 03-15-2023 Respiratory Panel (PCR) Services [employer] Phone: Start: 01-06-2023 Computed tomography of abdomen and pelvis with contrast Services [employer] Phone: Start: 01-06-2023 Plain chest X-ray Services [facility] [employer] Phone: Start: 01-06-2023 Pelvis X-ray [facility] [employer] Phone: Start: 01-02-2023 Urine culture Services [facility] [employer] Phone: Start: 12-31-2022 Influenza A and B virus antigen assay Services [facility] [employer] Phone: Start: 12-31-2022 Urine culture Services [facility] [employer] Phone: Start: 11-02-2022 Urine culture Services [facility] [employer] Phone: Start: 10-31-2022 Urine culture Services [employer] Phone: Start: 08-19-2022 Computed tomography of abdomen and pelvis with contrast [facility] [employer] Phone: Start: 06-09-2022 Esophagogastroduodenoscopy Services [facility] [employer] Work Phone: Start: 05-16-2022 Computed tomography of abdomen and pelvis with contrast Services [facility] Work Phone: Start: 08-21-2017 Introduction of Nutritional Substance into Upper GI, Via Natural or Artificial Opening Mere Simpson Start: 08-14-2017 Inspection of Larynx, Via Natural or Artificial Opening Endoscopic Mere Simpson Start: 08-13-2017 Control Bleeding in Respiratory Tract, Via Natural or Artificial Opening Mere Simpson Start: 08-11-2017 Excision of Duodenum, Via Natural or Artificial Opening Endoscopic, Diagnostic Mere Simpson Start: 08-11-2017 Excision of Lower Esophagus, Via Natural or Artificial Opening Endoscopic, Diagnostic Mere Simpson Start: 08-11-2017 Excision of Stomach, Pylorus, Via Natural or Artificial Opening Endoscopic, Diagnostic Mere Simpson SARS Antigen (LFIA) [facility] Work Phone: SARS Antigen (LFIA) [facility] Work Phone: SARS Antigen (LFIA) [facility] Work Phone: Urine culture [facility] Work Phone: Urine culture [facility] Work Phone: Urine culture [facility] Work Phone: Urine culture [facility] Work Phone: [facility] Work Phone: [facility] Work Phone: [facility] Work Phone: Plan of Treatment Date Care Activity Detail Author Start: 05-25-2023 [facility] Start: 05-25-2023 [facility] Start: 01-08-2023 Blood chemistry [facility] Start: 01-08-2023 [facility] Start: 01-07-2023 Blood chemistry [facility] Start: 01-07-2023 End: 01-07-2023 [facility] Start: 01-06-2023 Patient referral to dietitian [facility] Start: 01-06-2023 Hospital admission [facility] Start: 01-06-2023 [facility] Start: 01-06-2023 Computed tomography of abdomen and pelvis with contrast [facility] Start: 01-06-2023 CT Abdomen and Pelvis W contrast IV [facility] Start: 01-06-2023 End: 01-06-2023 [facility] Start: 01-06-2023 Urine culture [facility] Start: 12-31-2022 End: 12-31-2022 [facility] Start: 11-09-2022 [facility] Start: 10-29-2022 [facility] Start: 08-22-2022 [facility] Start: 08-22-2022 [facility] Work Phone: Start: 08-20-2022 Hospital admission [facility] Start: 08-20-2022 [facility] Work Phone: Start: 08-20-[address] [facility] Work Phone: Start: 08-19-2022 Computed tomography of abdomen and pelvis with contrast CT abdomen pelvis w con [facility] Start: 08-19-2022 CT Abdomen and Pelvis W contrast IV [facility] Work Phone: Start: 08-19-2022 [facility] Work Phone: Start: 07-29-2022 Influenza vaccination INFLUENZA (Season Ended) [facility] Start: 06-09-[address] [facility] Work Phone: Start: 2022 CHLAMYDIA SCREENING (18-24) CHLAMYDIA SCREENING (18-24) [facility] Start: 2022 GC (GONORRHEA) SCREENING (18-24) GC (GONORRHEA) SCREENING (18-24) [facility] Start: 2022 HEPATITIS C SCREENING HEPATITIS C SCREENING [facility] Start: 2022 HIV SCREENING HIV SCREENING [facility] Start: 2020 MENINGOCOCCAL CONJUGATE (1 - 2-dose series) MENINGOCOCCAL CONJUGATE (1 - 2-dose series) [facility] Start: 2018 PEDS TO ADULT TRANSITION ANNUAL ASSESSMENT PEDS TO ADULT TRANSITION ANNUAL ASSESSMENT [facility] Start: 2016 Adult depression screening assessment DEPRESSION SCREENING [facility] Start: 2016 PEDS TO ADULT TRANSITION INITIAL DISCUSSION PEDS TO ADULT TRANSITION INITIAL DISCUSSION [facility] Start: 2015 HPV VACCINE (1 - 2-dose series) HPV VACCINE (1 - 2-dose series) [facility] Start: 2014 MENINGOCOCCAL B: Consider based on risk (1 of 2 - Risk Bexsero 2-dose series) MENINGOCOCCAL B: Consider based on risk (1 of 2 - Risk Bexsero 2-dose series) [facility] Start: 2011 Urine microalbumin profile DTAP,TDAP,TD (1 - Tdap) [facility] Start: 2009 COVID-19 VACCINE (#1) [facility] Amphetamines [Presen ce] in Urine [facility] Work Phone: Bacteria identified in Blood by Culture [facility] Bacteria identified in Urine by Culture [facility] Bacteria identified in Urine by Culture [facility] Barbiturates [Presen ce] in Urine [facility] Work Phone: Benzodiazepines [Pre sence] in Urine [facility] Work Phone: Bilirubin measurement, urine [facility] Work Phone: Cannabinoids [Presen ce] in Urine by Screen method [facility] Work Phone: Choriogonadotropin ( test) [Presence] in Urine [facility] Work Phone: Cocaine [Presence] in Urine [facility] Work Phone: Color of Urine [facility] Work Phone: Detection of hemoglobin [facility] Work Phone: Glucose [Mass/volume ] in Urine by Test strip [facility] Work Phone: Homogenous nuclear A b pattern [Titer] in Serum [facility] Work Phone: Measurement of keton es in urine using dipstick [facility] Work Phone: Nuclear Ab [Titer] in Serum [facility] Work Phone: Patient Education [facility] Work Phone: Patient referral [facility] Work Phone: Phencyclidine [Prese nce] in Urine [facility] Work Phone: Protein measurement, urine [facility] Work Phone: SARS-CoV-2 (COVID-19 ) N gene [Presence] in Respiratory specimen by JANAK with probe detection [facility] Work Phone: Urinalysis, specific gravity measurement [facility] Work Phone: Urine culture Urine Culture [facility] Urine culture [facility] Urine dipstick for nitrite [facility] Work Phone: Urine dipstick for s pecific gravity [facility] Work Phone: Urine pH test [facility] Work Phone: Urobilinogen concent ration, test strip measurement [facility] Work Phone: [facility] Immunizations Immunization Date Immunization Notes Care Provider Susan alvarado 01-17-2018 tetanus toxoid, redu yoni diphtheria toxoid, and acellular pertussis vaccine, adsorbed [facility] Work Phone: [facility] 01-07-2017 Human Papillomavirus 9-valent vaccine [facility] Other [facility] Other 09-06-2016 influenza, injectabl e, quadrivalent, preservative free [facility] Other [facility] Other 09-06-2016 Human Papillomavirus 9-valent vaccine [facility] Other [facility] Other 07-01-2016 human papilloma viru s vaccine, quadrivalent [facility] Other [facility] Other 07-01-2016 meningococcal polysaccharide (groups A, C, Y and W-135) diphtheria toxoid conjugate vaccine (MCV4P) [facility] Other [facility] Other 07-01-2016 tetanus toxoid, redu yoni diphtheria toxoid, and acellular pertussis vaccine, adsorbed [facility] Other [facility] Other 09-01-2015 influenza, injectabl e, quadrivalent, preservative free [facility] Other [facility] Other 08-19-2014 influenza, injectabl e, quadrivalent, preservative free [facility] Other [facility] Other 08-17-2013 influenza, seasonal, injectable, preservative free [facility] Other [facility] Other Payers Date Payer Category Payer Medicaid [id number] 2022 Self-pay 2019 Medicaid [employer] [facility] MEDICAID [id number] 2019-Present [phone] [address] [place] [address] Medicaid [id number] 2004 Unknown [id number] 2004 Unknown [id number]7 1969 Unknown [id number]3 1969 Unknown [id number]3 1959 Medicaid [id number] Medicaid [id number] Unknown [id number] Unknown [id number] Unknown [id number] Unknown [id number] Unknown [id number] Unknown [id number] Unknown [id number] 840.1.841912.3.579.2.531 Unknown [id number] 840.1.202186.3.579.2.531 Unknown [id number] .840.1.814923.3.579.2.531 Unknown [id number] 840.1.612455.3.579.2.531 Unknown [id number] 840.1.257560.3.579.2.531 Unknown [id number] .840.1.938370.3.579.2.531 Unknown [id number] 840.1.224327.3.579.2.531 Unknown [id number] 840.1.005168.3.579.2.531 Unknown [id number] 840.1.541497.3.579.2.531 Unknown [id number] 840.1.226985.3.579.2.531 Unknown [id number] 840.1.570034.3.579.2.531 Unknown [id number] 2.16.840.1.026711.3.579.2.531 Unknown [id number] 2.16.840.1.806747.3.579.2.531 Unknown [id number] 2.16.840.1.933808.3.579.2.531 Unknown [id number] 2.16.840.1.317712.3.579.2.531 Unknown [id number] 2.16.840.1.230759.3.579.2.531 Unknown [id number] 2.16.840.1.390962.3.579.2.531 Unknown [id number] 2.16.840.1.314818.3.579.2.531 Social History Date Type Detail Facility Start: 10-09-2021 End: 03-13-2024 Tobacco smoking status [facility] Never smoked tobacco [facility] Start: 10-09-2021 Tobacco use and exposure Smokeless tobacco non-user [facility] Start: 10-09-2021 Alcohol intake Lifetime non-d isael (finding) [facility] Start: 10-09-2021 History SDOH Alcohol Frequency 1 [facility] Start: 2004 Sex Assigned At Not on file C [facility] Start: 06-09-2022 End: 12-31-2022 Tobacco smoking status [facility] Smoker (finding) [facility] Start: 2004 Sex Assigned At Female F [facility] Start: 08-18-2022 End: 05-25-2023 Tobacco smoking status ILIS Current some day smoker [facility] Start: 01-06-2023 Tobacco smoking stat us [facility] Ex-smoker (finding) [facility] Sex Assigned At [facility] Tobacco smoking status Never [facility] Medical Equipment Procedure Code Equipment Code Equipment Origin al Text Equipment Identifier Dates Arthroscopy, knee Tendon/ligamen t bone anchor, non-bioabsorbable ([id number] FDA Start: 05-25-2023 Arthroscopy, knee Soft-tissue/me sh anchor, non-bioabsorbable ()[id number] FDA Start: 05-25-2023 Arthroscopy, knee Tendon/ligamen t bone anchor, bioabsorbable ()[id number] FDA Start: 05-25-2023 Goals Date Patient Goal Desired Activity /State Functional Status Date Assessment Result Facility 03-15-2024 Functional Status N/A [facility] 03-13-2024 Functional Status N/A [facility] 01-07-2023 Functional status Patient at [facility] Work Phone: 01-06-2023 Functional status Patient at [facility] Work Phone: 08-22-2022 Functional status Patient at [facility] Work Phone: Mental Status Date Assessment Result Facility 01-07-2023 Cognitive function Patient at [facility] Work Phone: 01-06-2023 Cognitive function Patient at [facility] Work Phone: 08-22-2022 Cognitive function Patient at [facility] Work Phone: Clinical Notes 09-28-2015 to 03-15-2024 Note Date & Type Note Facility 03-15-2024 Hospital Discharge instructions Patient Education 03/15/2024 13:49:41 Pneumomediastinum Pneumomediastinum Pneumomediastinum is the presence of air in the mediastinum. This is the area of the body that is between the two lungs, with the breastbone in front of it. Mild cases of this condition may not cause problems. In severe cases, the difference in pressure in the mediastinum and the lung tissue can interfere with the functions of the heart and the lungs. There are two types of pneumomediastinum secondary and spontaneous. Secondary type includes: ?An injury to your chest, lung, intestine, esophagus, or abdomen. ?Complications during chest surgery. Spontaneous type includes: ?Inhaling certain drugs or chemicals. ?Smoking or the use of recreational drugs, such as methamphetamines, cocaine, and marijuana. Spontaneous pneumomediastinum can occur in individuals who have no pre-existing medical conditions. What are the causes? This condition happens when air leaks out of your lungs, airways, or intestines and into your mediastinum. This may happen as a result of substance abuse or medical problems. Causes may include: Injury to your airway. This can be caused by blunt trauma, explosions, or penetrating wounds. Medical issues, such as: ?Use of a breathing machine (ventilator). ?A complication of asthma. ?Extreme strain during coughing or vomiting. ?Rapid ascent during scuba diving. ?Repeated bearing down to increase abdominal pressure. This can happen during childbirth, bowel movements, or weight lifting. ?An infection in your face, neck, chest, or abdomen. What are the signs or symptoms? Symptoms of this condition include: Chest pain. The pain may run into your neck, shoulder, back, or arms. Increased pain when you move, swallow, or take a deep breath. Difficulty breathing or shortness of breath. Throat pain. Problems swallowing. Problems speaking. Changes in your voice. Some people have no symptoms. This is often the case if the condition occurred on its own. How is this diagnosed? This condition may be diagnosed based on: Your symptoms. A physical exam. Imaging tests, such as a chest X-ray or an ultrasound. How is this treated? Treatment depends on how severe the condition is and whether there are complications. If your condition is mild, you may not need treatment. Your body may slowly reabsorb the air in your mediastinum. You will stay in the hospital for observation and get medicine for pain, if you have pain. If your condition is severe, or if the air starts to put pressure on your heart or lungs, you may need: ?Treatment for the underlying cause. ?One or more of the following procedures: ?Needle aspiration. In this procedure, a needle is used to remove trapped air. ?Chest tube placement. This may be done if your lung collapses. ?Surgery. This may be done to repair a hole in your intestine or esophagus. Follow these instructions at home: Until your health care provider says it is okay, avoid: ?Air travel. ?Scuba diving. ?High altitudes. ?Hard physical work. ?Exercise. Avoid any movements that make you strain your muscles. Try not to cough, laugh hard, or lift anything heavy. Do not use any products that contain nicotine or tobacco. These products include cigarettes, chewing tobacco, and vaping devices, such as e-cigarettes. If you need help quitting, ask your health care provider. Do not use recreational drugs. Take gahj-aes-rpviazs and prescription medicines only as told by your health care provider. Contact a health care provider if: You have a fever. Get help right away if: You have worsening pain in your chest, neck, jaw, or arms. You have trouble breathing. You have new problems with speaking or swallowing. These symptoms may be an emergency. Get help right away. Call 911. Do not wait to see if the symptoms will go away. Do not drive yourself to the hospital. Summary Pneumomediastinum is the presence of air in the mediastinum. This is the area of the body that is between the lungs and behind the breastbone. This can happen if air leaks out of your lungs, airways, or intestines and into your mediastinum. Symptoms may include chest, shoulder, or throat pain, increased pain when you move, swallow, or take a deep breath, changes in your voice, difficulty breathing, or shortness of breath. Treatment depends on how severe your condition is and if there are complications. This information is not intended to replace advice given to you by your health care provider. Make sure you discuss any questions you have with your health care provider. Document Revised: 06/08/2022 Document Reviewed: 06/08/2022 [employer] Patient Education 2022 [employer]. 03/15/2024 13:49:41 Nausea and Vomiting, Adult Nausea and Vomiting, Adult Nausea is the feeling that you have an upset stomach or that you are about to vomit. As nausea gets worse, it can lead to vomiting. Vomiting is when stomach contents forcefully come out of your mouth as a result of nausea. Vomiting can make you feel weak and cause you to become dehydrated. Dehydration can make you feel tired and thirsty, cause you to have a dry mouth, and decrease how often you urinate. Older adults and people with other diseases or a weak disease-fighting system (immune system) are at higher risk for dehydration. It is important to treat your nausea and vomiting as told by your health care provider. Follow these instructions at home: Watch your symptoms for any changes. Tell your health care provider about them. Eating and drinking Take an oral rehydration solution (ORS). This is a drink that is sold at pharmacies and retail stores. Drink clear fluids slowly and in small amounts as you are able. Clear fluids include water, ice chips, low-calorie sports drinks, and fruit juice that has water added (diluted fruit juice). Eat bland, ufsz-gy-gjcdfb foods in small amounts as you are able. These foods include bananas, applesauce, rice, lean meats, toast, and crackers. Avoid fluids that contain a lot of sugar or caffeine, such as energy drinks, sports drinks, and soda. Avoid alcohol. Avoid spicy or fatty foods. General instructions Take rmwa-muk-poopeya and prescription medicines only as told by your health care provider. Drink enough fluid to keep your urine pale yellow. Wash your hands often using soap and water for at least 20 seconds. If soap and water are not available, use hand bulb farmworker. Make sure that everyone in your household washes their hands well and often. Rest at home while you recover. Watch your condition for any changes. Take slow and deep breaths when you feel nauseous. Keep all follow-up visits. This is important. Contact a health care provider if: Your symptoms get worse. You have new symptoms. You have a fever. You cannot drink fluids without vomiting. Your nausea does not go away after 2 days. You feel light-headed or dizzy. You have a headache. You have muscle cramps. You have a rash. You have pain while urinating. Get help right away if: You have pain in your chest, neck, arm, or jaw. You feel extremely weak or you faint. You have persistent vomiting. You have vomit that is bright red or looks like black coffee grounds. You have bloody or black stools (feces) or stools that look like tar. You have a severe headache, a stiff neck, or both. You have severe pain, cramping, or bloating in your abdomen. You have difficulty breathing, or you are breathing very quickly. Your heart is beating very quickly. Your skin feels cold and clammy. You feel confused. You have signs of dehydration, such as: ?Dark urine, very little urine, or no urine. ?Cracked lips. ?Dry mouth. ?Sunken eyes. ?Sleepiness. ?Weakness. These symptoms may be an emergency. Get help right away. Call 911. Do not wait to see if the symptoms will go away. Do not drive yourself to the hospital. Summary Nausea is the feeling that you have an upset stomach or that you are about to vomit. As nausea gets worse, it can lead to vomiting. Vomiting can make you feel weak and cause you to become dehydrated. Follow instructions from your health care provider about eating and drinking to prevent dehydration. Take lrpr-wsc-sgreajz and prescription medicines only as told by your health care provider. Contact your health care provider if your symptoms get worse, or you have new symptoms. Keep all follow-up visits. This is important. This information is not intended to replace advice given to you by your health care provider. Make sure you discuss any questions you have with your health care provider. Document Revised: 05/21/2022 Document Reviewed: 05/21/2022 [employer] Patient Education 2022 [employer]. Follow Up Care 03/15/2024 10:34:05 With:Kirk Serrano Address:Unknown When:03/22/2024 13:33:04 Comments:Make sure to follow-up with Dr. Serrano at the surgery clinic in 1 week as instructed. Return to the emergency room if you develop chest pain, shortness of breath or any symptoms. [facility] 03-15-2024 Evaluation + Plan note Extrac venkata from: Title:ED Note Author:Ebony Birmingham, August Frost te:03/15/24 1. Nausea and vomiting (R11. 2: Nausea with vomiting, unspecified) 2. 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) Orders: morphine, 4 mg = 1 mL, Injection, IV Push, Once, Stop date 03/15/24 11:48:00 EDT, STAT, Start date 03/15/24 11:48:00 EDT, 03/15/24 11:48:00 EDT ondansetron, 4 mg = 2 mL, Injection, IV Push, Once, Stop date 03/15/24 10:54:00 EDT, STAT, Start date 03/15/24 10:54:00 EDT, 03/15/24 10:54:00 EDT Sodium Chloride 0.9% intravenous solution, 1,000 mL, Soln-IV, IV, Once, Stop date 03/15/24 10:54:00 EDT, STAT, Start date 03/15/24 10:54:00 EDT, Infuse over 61, minute(s) CBC w/ Auto Diff Comprehensive Metabolic Panel CT Chest w/ Contrast eGFR Magnesium Level [facility]04-17-2024 Hospital Discharge instructions Patient Education 03/13/2024 22:27:59 Nausea and Vomiting, Adult, Kqge-va-Qook Nausea and Vomiting, Adult Nausea is feeling that you have an upset stomach and that you are about to vomit. Vomiting is when food in your stomach forcefully comes out of your mouth. Vomiting can make you feel weak. If you vomit, or if you are not able to drink enough fluids, you may not have enough water in your body (get dehydrated). If you do not have enough water in your body, you may: Feel tired. Feel thirsty. Have a dry mouth. Have cracked lips. Pee (urinate) less often. Older adults and people with other diseases or a weak body defense system (immune system) are at higher risk for not having enough water in the body. If you feel like you may vomit or you vomit, it is important to follow instructions from your doctor about how to take care of yourself. Follow these instructions at home: Watch your symptoms for any changes. Tell your doctor about them. Eating and drinking Take an ORS (oral rehydration solution). This is a drink that is sold at pharmacies and stores. Drink clear fluids in small amounts as you are able, such as: ?Water. ?Ice chips. ?Fruit juice that has water added (diluted fruit juice). ?Low-calorie sports drinks. Eat bland, qaok-gb-qvvugo foods in small amounts as you are able, such as: ?Bananas. ?Applesauce. ?Rice. ?Low-fat (lean) meats. ?[place]. ?Crackers. Avoid drinking fluids that have a lot of sugar or caffeine in them. This includes energy drinks, sports drinks, and soda. Avoid alcohol. Avoid spicy or fatty foods. General instructions Take ddos-wfk-pnokomn and prescription medicines only as told by your doctor. Drink enough fluid to keep your pee (urine) pale yellow. Wash your hands often with soap and water for at least 20 seconds. If you cannot use soap and water, use hand bulb farmworker. Make sure that everyone in your home washes their hands well and often. Rest at home until you feel better. Watch your condition for any changes. Take slow and deep breaths when you feel like you may vomit. Keep all follow-up visits. Contact a doctor if: Your symptoms get worse. You have new symptoms. You have a fever. You cannot drink fluids without vomiting. You feel like you may vomit for more than 2 days. You feel light-headed or dizzy. You have a headache. You have muscle cramps. You have a rash. You have pain while peeing. Get help right away if: You have pain in your chest, neck, arm, or jaw. You feel very weak or you faint. You vomit again and again. You have vomit that is bright red or looks like black coffee grounds. You have bloody or black poop (stools) or poop that looks like tar. You have a very bad headache, a stiff neck, or both. You have very bad pain, cramping, or bloating in your belly (abdomen). You have trouble breathing. You are breathing very quickly. Your heart is beating very quickly. Your skin feels cold and clammy. You feel confused. You have signs of losing too much water in your body, such as: ?Dark pee, very little pee, or no pee. ?Cracked lips. ?Dry mouth. ?Sunken eyes. ?Sleepiness. ?Weakness. These symptoms may be an emergency. Get help right away. Call 911. Do not wait to see if the symptoms will go away. Do not drive yourself to the hospital. Summary Nausea is feeling that you have an upset stomach and that you are about to vomit. Vomiting is when food in your stomach comes out of your mouth. Follow instructions from your doctor about eating and drinking. Take awta-vvj-ynmsqpi and prescription medicines only as told by your doctor. Contact your doctor if your symptoms get worse or you have new symptoms. Keep all follow-up visits. This information is not intended to replace advice given to you by your health care provider. Make sure you discuss any questions you have with your health care provider. Document Revised: 05/21/2022 Document Reviewed: 05/21/2022 [employer] Patient Education 2022 [employer]. 03/13/2024 22:27:59 Muscle Strain, Erzi-ve-Hhdx Muscle Strain A muscle strain, or pulled muscle, happens when a muscle is stretched beyond its normal length. This can tear some muscle fibers and cause pain. Usually, it takes 1 2 weeks to heal from a muscle strain. Full healing normally takes 5 6 weeks. What are the causes? This condition is caused when a sudden force is placed on a muscle and stretches it too far. This can happen with a fall, while lifting, or during sports. What increases the risk? You are more likely to develop a muscle strain if you are an athlete or you do a lot of physical activity. What are the signs or symptoms? Pain. Tenderness. Bruising. Swelling. Trouble using the muscle. How is this treated? This condition is first treated with ELAINE therapy. This involves: Protecting your muscle from being injured again. Resting your injured muscle. Icing your injured muscle. Putting pressure (compression) on your injured muscle. This may be done with a splint or elastic bandage. Raising (elevating) your injured muscle. Your doctor may also recommend medicine for pain. Follow these instructions at home: If you have a splint that can be taken off: Wear the splint as told by your doctor. Take it off only as told by your doctor. Check the skin around the splint every day. Tell your doctor if you see problems. Loosen the splint if your fingers or toes: ?Tingle. ?Become numb. ?Turn cold and blue. Keep the splint clean. If the splint is not waterproof: ?Do not let it get wet. ?Cover it with a watertight covering when you take a bath or a shower. Managing pain, stiffness, and swelling If told, put ice on your injured area. To do this: ?If you have a removable splint, take it off as told by your doctor. ?Put ice in a plastic bag. ?Place a towel between your skin and the bag. ?Leave the ice on for 20 minutes, 2 3 times a day. ?Take off the ice if your skin turns bright red. This is very important. If you cannot feel pain, heat, or cold, you have a greater risk of damage to the area. Move your fingers or toes often. Raise the injured area above the level of your heart while you are sitting or lying down. Wear an elastic bandage as told by your doctor. Make sure it is not too tight. General instructions Take [id number] and prescription medicines only as told by your doctor. This may include: ?Medicines for pain and swelling that are taken by mouth or put on the skin. ?Medicines to help relax your muscles. Limit your activity. Rest your injured muscle as told by your doctor. Your doctor may say that gentle movements are okay. If physical therapy was prescribed, do exercises as told by your doctor. Do not put pressure on any part of the splint until it is fully hardened. This may take many hours. Do not smoke or use any products that contain nicotine or tobacco. If you need help quitting, ask your doctor. Ask your doctor when it is safe to drive if you have a splint. Keep all follow-up visits. How is this prevented? Warm up before you exercise. This helps to prevent more muscle strains. Contact a doctor if: You have more pain or swelling in the injured area. Get help right away if: You have any of these problems in your injured area: ?Numbness. ?Tingling. ?Less strength than normal. Summary A muscle strain is an injury that happens when a muscle is stretched beyond normal length. This condition is first treated with ELAINE therapy. This includes protecting, resting, icing, adding pressure, and raising your injury. Limit your activity. Rest your injured muscle as told by your doctor. Your doctor may say that gentle movements are okay. Warm up before you exercise. This helps to prevent more muscle strains. This information is not intended to replace advice given to you by your health care provider. Make sure you discuss any questions you have with your health care provider. Document Revised: 02/01/2022 Document Reviewed: 02/01/2022 [employer] Patient Education 2022 [employer]. Follow Up Care 03/13/2024 17:33:30 With:MODESTA ARCHIBALD Address: [address] [place] [phone] Business (1) When:03/16/2024 Comments:You can use the medications as prescribed as needed for pain, nausea. Please follow-up with your primary care doctor for further evaluation and management. Please return to the ED if you develop chest pain, difficulty breathing or if any concerning signs or symptoms. [facility]04-16-2024 Evaluation + Plan noteExtracted from: Title:ED Note Author:Gasper Lang PA-C te:03/13/24 1. Fall down stairs (W10.8XX A: Fall (on) (from) other stairs and steps, initial encounter) Abnormal CT scan, chest (R93.89: Abnormal findings on diagnostic imaging of other specified body structures) Back strain (S39.012A: Strain of muscle, fascia and tendon of lower back, initial encounter) N&V (nausea and vomiting) (R11.2: Nausea with vomiting, unspecified) Orders: acetaminophen + Generic Diluent 100 mL, 1,000 mg = 100 mL, Soln-IV, IV Piggyback, Once, Stop date 03/13/24 19:05:00 EDT, STAT, Start date 03/13/24 19:05:00 EDT, 400 mL/hr, Infuse over 15 minute(s) acetaminophen-hydrocodone, 1 tab(s), Oral, q6hr for pain for 3 day(s), 7 tab(s), Refill(s) 0, [id number], 160, cm, 03/13/24 17:38:00 EDT, Height/Length Dosing, 95.5, kg, 03/13/24 17:38:00 EDT, Weight Dosing acetaminophen-hydrocodone, 1 EA, Tab, Oral, Once, Stop date 03/13/24 22:01:00 EDT, STAT, Start date 03/13/24 22:01:00 EDT dexamethasone, 10 mg = 2.5 mL, Injection, IV Push, Once, Stop date 03/13/24 19:04:00 EDT, STAT, Start date 03/13/24 19:04:00 EDT, 03/13/24 19:04:00 EDT methocarbamol, 500 mg = 1 tab(s), Oral, TID, X 3 day(s), # 9 tab(s), Refills(s) 0, Pharmacy: [id number], 160, cm, 03/13/24 17:38:00 EDT, Height/Length Dosing, 95.5, kg, 03/13/24 17:38:00 EDT, Weight Dosing morphine, 4 mg = 1 mL, Injection, IV Push, Once, Stop date 03/13/24 19:50:00 EDT, STAT, Start date 03/13/24 19:50:00 EDT, 03/13/24 19:50:00 EDT naproxen, 500 mg = 1 tab(s), Oral, BID, PRN for pain, # 20 tab(s), Refills(s) 0, Pharmacy: [id number], 160, cm, 03/13/24 17:38:00 EDT, Height/Length Dosing, 95.5, kg, 03/13/24 17:38:00 EDT, Weight Dosing orphenadrine, 60 mg = 2 mL, Injection, IV Push, Once, Stop date 03/13/24 20:27:00 EDT, STAT, Start date 03/13/24 20:27:00 EDT, 03/13/24 20:27:00 EDT promethazine, 25 mg = 1 supp, Rectal, q6hr, PRN Nausea/Vomiting, # 6 EA, Refills(s) 0, Pharmacy: [id number], 160, cm, 03/13/24 17:38:00 EDT, Height/Length Dosing, 95.5, kg, 03/13/24 17:38:00 EDT, Weight Dosing promethazine, 25 mg = 1 tab(s), Tab, Oral, Once, Stop date 03/13/24 22:01:00 EDT, STAT, Start date 03/13/24 22:01:00 EDT, 03/13/24 22:01:00 EDT promethazine 25 mg + Sodium Chloride 0.9% intravenous solution 50 mL, Injection, IV Piggyback, Once, Stop date 03/13/24 20:26:00 EDT, STAT, Start date 03/13/24 20:26:00 EDT, 153 mL/hr, Infuse over 20 minute(s) Sodium Chloride 0.9% intravenous solution 1,000 mL, 1,000 mL, IV, 983.61 mL/hr, for 30 day(s), Stop date 04/12/24 20:25:00 EDT, STAT, Start date 03/13/24 20:26:00 EDT, 61 minute(s), Total volume (mL): 1,000, 95.5 kg, 2.06, m2 XR Chest 2 Views [facility]07-06-2023 Evaluation note* Encounter Date Diagnosis Assessment Notes Treatment Notes Treatment Clinical Notes May, Displaced fracture o f right tibial spine, subsequent encounter for closed fracture with routine healing (ICD-10 - S82.111D) Maintain non weight bearing and knee immobilizer, may work on gentle motion exercise May, Closed fracture of right tibial plateau with routine healing, subsequent encounter (ICD-10 - S82.141D) May, Other specified postprocedural states (ICD-10 - Z98.890) [facility] Other 06-27-2023 Evaluation note* Encounter Date Diagnosis Assessment Notes Treatment Notes Treatment Clinical Notes Apr, Other specified postprocedural states (ICD-10 - Z98.890) [facility] Other 06-26-2023 Evaluation note* Encounter Date Diagnosis Assessment Notes Treatment Notes Treatment Clinical Notes Apr, Closed fracture of right tibial plateau, initial encounter (ICD-10 - S82.141A) CT reviewed with patient as displaced tibial plateau and spine fractures. Based on fracture displacement we are recommending surgical intervention of right knee arthroscopy with fixation of the tibial spine. We discussed the importance of icing and elevation of the leg above the heart to prevent swelling. We discussed that this injury will most likely cause pain for many months and potentially cause retirement pain and stiffness. We have discussed the many potential complications of surgery including respiratory, cardiac, and patient positioning during anesthesia. The risks of DVT, scarring, retirement pain, non union, hardware failure, development of arthritis and need for future surgery were all discussed. Patient is aware and would like to proceed. Advised patient she will be non weight bearing for at least 6 weeks post op. Advised she will be in a hinged knee brace after surgery, with the flexion locked at no more than 15 degrees. Apr, Closed displaced fracture of spine of right tibia, initial encounter (ICD-10 - S82.111A) Apr, Pre-op exam (ICD-10 - Z01.818) [facility] Other 02-10-2023 History and physical note Author Eliana Bautista [facility] January 07, 2023 2:11am Note Date/Time January 06, 2023 5 :30pm [facility] [address] [place] [address] Hospitalist H&P Signed Patient: Pili Parikh MR#: [id number] : 2005 Acct:[id number] Age/Sex: 17 / F Adm Date: 3 Loc: Room: [address] [place] [address] Type: ADM INOo Attending Dr: Eliana Bautista MD Copies to: [facility] FRANKY Starkey MD~ HPI DATE OF EXAMINATION: 01/06/23 CHIEF COMPLAINT: Nausea/vomiting abdominal pain HISTORY OF PRESENT ILLNESS: Pili Parikh is an 17-year-old female with a past medical history of POTS syndrome, anxiety, depression, cannabis hyperemesis syndrome who presents to theemergency room for the second time this week with complaints of abdominal pain, nausea and vomiting. She was last seen in the ED on Tuesday when she came in with similar symptoms and was discharged from the ER with with promethazine. She however reports that despite taking promethazine her symptoms have not relieved. Prior to that she was seen and evaluated in the ED on 12/31 with complaints of nonproductive cough, myalgias and ongoing abdominal pain nausea and generalized weakness. She is reporting abdominal pain across her upper abdomen which she reports has been ongoing for about a week. She describes it as constant pain which is made worse with nausea and vomiting. She also reports urinary frequency, however denies dysuria. She denies having any diarrhea, fevers or chills. She states that she is on her menstrual cycle. She states she last took marijuana a month ago. She has had poor oral intake as she is not able to keep anything down. Currently she is reporting abdominal pain, withnausea. Denies chest pain or palpitation. No cough, dyspnea, or pain with inspiration. No dysuria or retention. Reports slight headache, denies dizziness. No fevers Upon arrival to the ER, pelvis x-ray did not show any significant bony abnormality. WBC 17.7. Potassium 2.7. Urinalysis was positive for urine ketones, occult blood, salicylates, WBCs and bacteria. She was administered Promethazine 12.5 mg. Zofran 4 mg Toradol 30 mg. Ceftriaxone 1 gm. Protonix 40 mg. Normal saline 2000 mL bolus. She will be admitted by the hospitalist team for further evaluation and management . Review of Systems Review of Systems Review of systems: 10 point review of systems obtained, negative unless noted in the HPI or below [facility] Attestation Statement: The following information was validated with the patient. Source: Old Records Reviewed Vaccinated for COVID-19?: No Medical History Anxiety Asthma Manic depression Migraine Normal endoscopy upper and lower POTS (postural orthostatic tachycardia syndrome) Smoker Surgical History History of esophagogastroduodenoscopy (EGD) Hx of appendectomy Hx of colonoscopy Family History Mother Depression Father Depression Father Cancer of kidney Father Diabetes Mother Anxiety Mother Fibromyalgia Mother Epilepsy Mother Cervical cancer Social History Smoking Status: Current every day smoker Tobacco Type: cigarettes Substance Use Type: None Substance Abuse Comment: THC Every once in awhile 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 Medications and Allergies Allergies haloperidol [From Haldol] Allergy (Verified 01/06/23 11:12) Unknown Reaction metoclopramide [From Reglan] Allergy (Verified 01/02/23 01:18) Unknown Reaction Home Medications ondansetron 8 mg disintegrating tablet 8 mg PO Q8H PRN nausea and vomiting 4 days #10 tabs 11/09/22 [Rx Confirmed 01/06/23] promethazine 25 mg tablet 25 mg PO TID PRN nausea and vomiting 7 days #21 tabs 12/31/22 [Rx Confirmed 01/06/23] promethazine 25 mg rectal suppository 25 mg OR Q6H PRN Nausea #10 supp 01/02/23 [Rx Confirmed 01/06/23] omeprazole 20 mg capsule,delayed release 20 mg PO BID PRN Abdominal Discomfort 01/06/23 [History Confirmed 01/06/23] Exam Physical Exam Vital Signs: Temp Pulse Resp BP Pulse Ox O2 Del Method 98 F 60 16 157/84 95 Room Air 01/06/23 11:12 01/06/23 15:44 01/06/23 15:44 01/06/23 15:44 01/06/23 15:44 01/06/23 15:44 Narrative: CONST- Appear well developed. No acute distress. HEAD - Normocephalic and atraumatic EENT-Sclera nonicteric and conjunctive are nonerythemic, moist oral mucosa, pharynx clear NECK-Supple, no cervical lymphadenopathy CARDIAC-normal rate, regular rhythm, normal S1 & S2. PULM- Clear without wheeze or rhonchi, RA, no accessory muscle use or cough noted ABD - Soft. Bowel sounds are normal. No distention. Tenderness with palpation, no rebound tenderness EXTREM-no edema BLE calves nontender SKIN- W/D good turgor MS- MAEX4 spontaneously with equal with equal strength NEURO- A&Ox3 speech clear and tongue midline, equal facial symmetry no focal motor deficits PSYCH-Mood, affect and behavior appropriate Results Lab Results Labs: Laboratory Last Values Corrected WBC 17.7 X10E3/uL (4.5-13.5) H 01/06/23 14:20 Uncorrected WBC Count 17.7 x10E3/uL (4.5-13.5) H 01/06/23 14:20 RBC 5.65 X10E6/uL (4.10-5.10) H 01/06/23 14:20 Hgb 16.2 g/dL (12.0-16.0) H 01/06/23 14:20 Hct 48.3 % (36.0-46.0) H 01/06/23 14:20 MCV 85.4 fl (78-102) 01/06/23 14:20 MCH 28.7 pg (25.0-35.0) 01/06/23 14:20 MCHC 33.6 g/dL (31.0-37.0) 01/06/23 14:20 RDW 13.5 % (11.9-15.3) 01/06/23 14:20 Plt Count 296 x10E3/uL (150-450) 01/06/23 14:20 MPV 8.5 fl (6.3-10.7) 01/06/23 14:20 Neut % (Auto) 70.1 % (.) 01/06/23 14:20 Lymph % (Auto) 19.9 % (.) 01/06/23 14:20 Throckmorton % (Auto) 7.4 % (.) 01/06/23 14:20 Eos % (Auto) 2.3 % (.) 01/06/23 14:20 Baso % (Auto) 0.3 % (.) 01/06/23 14:20 Nucleat RBC Rel Count 0.1 /100 WBC (0-0.5) 01/06/23 14:20 Neut # (Auto) 12.4 x10E3/uL (1.2-7.7) H 01/06/23 14:20 Lymph # (Auto) 3.5 x10E3/uL (1.20-4.8) 01/06/23 14:20 Throckmorton # (Auto) 1.3 x10E3/uL (0.1-1.00) H 01/06/23 14:20 Eos # (Auto) 0.4 x10E3/uL (0.0-0.7) 01/06/23 14:20 Baso # (Auto) 0.0 x10E3/uL (0.0-0.1) 01/06/23 14:20 Monocyte Dist Width 15.43 % (0.00-20.00) 01/06/23 14:20 PHA Creatinine Clear 102.00 01/06/23 14:20 Sodium 132 mmol/L (136-146) L 01/06/23 14:20 Potassium 2.7 mmol/L (3.5-5.1) L* 01/06/23 14:20 Chloride 91 mmol/L (95-114) L 01/06/23 14:20 Carbon Dioxide 24.3 mmol/L (22.0-30.0) 01/06/23 14:20 Anion Gap 19.4 mEq/L (6.0-15.0) H 01/06/23 14:20 BUN 19 mg/dL (9-23) 01/06/23 14:20 Creatinine 0.86 mg/dL (0.44-1.03) 01/06/23 14:20 Est GFR ( Amer) > 60 mL/Min 01/06/23 14:20 Est GFR (Non-Af Amer) > 60 mL/Min 01/06/23 14:20 Glucose 80 mg/dL (70-100) 01/06/23 14:20 Lactic Acid 1.6 mmol/L (0.5-2.2) 01/06/23 14:26 Calcium 9.8 mg/dL (8.2-10.2) 01/06/23 14:20 Total Bilirubin 1.5 mg/dL (0.3-1.2) H 01/06/23 14:20 AST 20 U/L (10-42) 01/06/23 14:20 ALT 20 U/L (10-60) 01/06/23 14:20 Alkaline Phosphatase 66 U/L (32-92) 01/06/23 14:20 Total Protein 7.8 gm/dL (6.1-7.9) 01/06/23 14:20 Albumin 4.9 gm/dL (3.2-5.5) 01/06/23 14:20 Globulin 2.9 gm/dL 01/06/23 14:20 Albumin/Globulin Ratio 1.7 01/06/23 14:20 Lipase 31.0 U/L (22-51) 01/06/23 14:20 Urine Color Yellow (Yellow) 01/06/23 16:10 Urine Appearance Cloudy (Clear) A 01/06/23 16:10 Urine pH 6.5 (5.0-9.0) 01/06/23 16:10 Ur Specific Crane 1.027 (1.001-1.030) 01/06/23 16:10 Urine Protein 100 mg/dL (Negative) H 01/06/23 16:10 Urine Glucose (UA) Normal mg/dL (Normal) 01/06/23 16:10 Urine Ketones 4+ (Negative) H 01/06/23 16:10 Urine Occult Blood 3+ (Negative) H 01/06/23 16:10 Urine Nitrite Negative (Negative) 01/06/23 16:10 Urine Bilirubin Negative (Negative) 01/06/23 16:10 Urine Urobilinogen Normal mg/dL (Normal) 01/06/23 16:10 Ur Leukocyte Esterase 2+ (Negative) H 01/06/23 16:10 Urine RBC None seen /HPF (0-4) 01/06/23 16:10 Urine WBC 20-49 /HPF (0-4) H 01/06/23 16:10 Ur Squamous Epith Cells 10-19 /HPF (0-2) H 01/06/23 16:10 Urine Bacteria 1+ (None Seen) H 01/06/23 16:10 Hyaline Casts None seen /LPF (0-1) 01/06/23 16:10 Other Casts None seen /LPF (None Seen) 01/06/23 16:10 Urine HCG, Qual Negative 01/06/23 16:10 A&P - Hospitalist Assessment/Plan (1) Abdominal pain: (2) Nausea & vomiting: (3) Dehydration: (4) Hypokalemia: Plan Abdominal pain/Intractable nausea and vomiting Hypokalemia Leukocytosis Possible urinary tract infection Possible cannabis hyperemesis syndrome Patient with multiple presentation to the emergency department for the same issue, she presents today with abdominal pain, intractable nausea and vomiting for 1 week which has not been relieved by Phenergan that she was given on her last visit to the ED. she has a history of POTS syndrome and has nausea and vomiting about twice in a month but she states this is worse than her symptoms. ?Pelvis x-ray did not show any acute bony prominence. test is negative ?Chest x-ray did not show any acute process ?Urinalysis positive for leukocyte esterase, WBC, RBCs and bacteria. Her last urine culture from the 12/31 grew Staphylococcus of epididymis with a 75,000 colony count. ?White count 17,7potassium 2.9 .Was administered ceftriaxone,in ED ?Check drug screen, Blood cultures and urine cultures pending ?CT abdomen/pelvis with contrast pending ?Continue IV fluids with IV potassium replacement. ?Start Protonix 40 mg IV twice daily. ? Zofran and Phenergan as needed. ?Clear liquids for now and if she continues to vomit, will put n.p.o. DVT prophylaxis: SCDs Attending Physician Attestation: I personally saw this patient on the day of the encounter, reviewed the history,performed the peacock elements of the exam, formulated the plan of care and confirmed the written note. I agree with the findings and plan as documented in this note and have edited it if needed to reflect my findings and plan. Eliana Bautista MD Documented By: Anette Stout APRN 01/06/23 1655 Signed By: <Electronically signed by FRANKY Stout> 01/06/23 1817 <Electronically signed by Eliana Bautista MD> 01/07/[address] [facility] Work Phone: 1(128) 438-915309-24-2022 Progress note Author Gregorio Carey [facility] August 21, 2022 5:01pm Note Date/Time August 21, 2022 5:01pm [facility] [address] [place] [address] Hospitalist Progress Note Signed Patient: Pili Parikh MR#: [id number] : 2005 Acct:[id number] Age/Sex: 17 / F Adm Date: 2 Loc: Room: [address] [place] [address] Type: ADM IN Attending Dr: Gregorio Carey DO Copies to: ~ Date of Service: 08/21/2022 Subjective Subjective Narrative: In the morning nursing staff told me that the patient had been in the shower at least 7 times since her admission. The morning report also was the patient had eaten all of her breakfast. Of course this was a limited clear liquid breakfast. Seen here at about suppertime the patient says that she has been able to keep her clear liquids down. She told nursing staff that she wanted something more normal than the clear liquid diet. She does describe some mild esophageal regurgitation of bile-like liquids but not full-blown vomiting. She still has alot of discomfort. 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 She does admit that taking hot showers seems to makethis vomiting syndrome feel better. She states that she and her friend ate at a new restaurant on . The friend also had some vomiting and diarrhea. She wonders about food poisoning. It does seem that there was some chicken that was undercooked and also rice in that meal. However the patient indicates that she is really only had 1 liquid diarrhea and then maybe a smaller liquid bowel movement during this entire ordeal. We discussed marijuana use. She says that she began using that for her POTS. She describes that she does not use it very heavily. I did describe to her thattaking hot showers and warm water or warm heating pads against belly is stronglyindicative of cannabinoid hyperemesis. I provided her the [employer] patient education regarding cannabinoid hyperemesis. She does express understanding. Exam Physical Exam Vital Signs: Temp Pulse Resp BP Pulse Ox O2 Del Method 98.4 F 61 16 145/95 96 Room Air 08/21/22 07:59 08/21/22 12:00 08/21/22 12:00 08/21/22 12:00 08/21/22 12:00 08/21/22 12:00 Narrative: GEN: No family in the room. Looks much more comfortable and alert today than she did yesterday evening Lungs: Clear to auscultation bilaterally, no wheezing, no crackles. Heart: Regular rate and rhythm, no murmurs, rubs, or gallops. Abdomen: Bowel sounds remain rather hypoactive. To light palpation her abdomen shows no rigidity, guarding, or acute peritoneal signs. Extremities: No swelling or cords in the calves bilaterally, no edema in the ankles bilaterally. Objective Lab Results CBC & Chem 7: 08/21/22 06:05 08/21/22 06:05 Microbiology Results Microbiology 08/20/22 20:25 Clean Void Midstream Urine Culture - Preliminary <9,000 colonies/ml mixed bacterial skin contaminants 1 Day 08/20/22 14:53 Nasal SARS Antigen (LFIA) - Final Meds Allergies and Active Meds Allergies No Known Allergies Allergy (Verified 08/20/22 11:55) Active Meds: Active Medications Generic Name Dose Route Start Last Admin Trade Name Freq PRN Reason Stop Dose Admin Haloperidol Lactate 5 mg 08/21/22 19:00 Haloperidol Lactate 5 Mg/Ml Vial IM 08/21/22 19:01 ONCE ONE Haloperidol Lactate 5 mg 08/21/22 16:51 Haloperidol Lactate 5 Mg/Ml Vial IM Q6H PRN vomiting Hydroxyzine Pamoate 25 mg 08/20/22 18:27 08/21/22 10:37 Hydroxyzine Pamoate 25 Mg Capsule PO 08/20/23 18:26 25 mg Q4H PRN Administration Anxiety/vomiting Lactated Ringer's 1,000 mls @ 333 mls/hr 08/21/22 17:00 Lactated Ringers IV 08/21/22 20:00 .Q3H1M ALVIN Ketorolac Tromethamine 30 mg 08/20/22 18:27 08/21/22 10:31 Ketorolac Tromethamine 30 Mg/Ml Vial IV-PUSH 08/25/22 18:26 30 mg Q6H PRN Administration Pain\ Lorazepam 1 mg 08/20/22 18:34 08/20/22 23:14 Lorazepam 2 Mg/Ml Vial IV-PUSH 02/16/23 18:33 1 mg Q4H PRN Administration anxiety Pantoprazole Sodium 40 mg 08/20/22 21:00 08/21/22 09:34 Pantoprazole 40 Mg Vial IV-PUSH 08/20/23 20:59 40 mg BID ALVIN Administration Promethazine HCl 25 mg 08/20/22 18:27 08/21/22 12:32 Promethazine 25 Mg/Ml Vial IM 08/20/23 18:26 25 mg Q4H PRN Administration Nausea/Vomiting Sodium Chloride 0 ml 08/20/22 11:55 08/20/22 22:43 Sodium Chloride 0.9 % 10 Ml Syringe IV-PUSH 08/20/23 11:54 10 ml PRN PRN Administration Flush Sodium Chloride 10 ml 08/20/22 16:14 Sodium Chloride 0.9 % 10 Ml Syringe IV-PUSH 08/20/23 16:13 PRN PRN Flush Sodium Chloride 10 ml 08/20/22 18:27 08/21/22 09:35 Sodium Chloride 0.9 % 10 Ml Vial.Pf INJECTION 08/20/23 18:26 10 ml PRN PRN Administration Dilution Sodium Chloride 10 ml 08/20/22 18:27 Sodium Chloride 0.9 % 10 Ml Syringe IV-PUSH 08/20/23 18:26 PRN PRN Flush Sodium Chloride 0 ml 08/20/22 22:00 08/21/22 15:19 Sodium Chloride 0.9 % 10 Ml Syringe IV-PUSH 08/20/23 21:59 Not Given QSHIFT ALVIN Sodium Chloride 10 ml 08/20/22 18:34 Sodium Chloride 0.9 % 10 Ml Vial.Pf INJECTION 08/20/23 18:33 Q4H PRN Ativan dilution Sucralfate 1 gm 08/22/22 07:00 Sucralfate Susp 1 Gm/10 Ml Udc PO 08/22/23 06:59 TID.AC.[facility] A&P - Hospitalist Assessment/Plan (1) Intractable nausea and vomiting: (2) Dehydration: (3) Hypokalemia: Plan Assessment: Intractable nausea vomiting. Clinical dehydration. Hypokalemia. Strong clinical suspicion of cannabinoid hyperemesis syndrome. Patient reported history of POTS. Plan: Continue generous IV fluids with IV potassium replacement. Continue IV Protonix 40 mg IV twice daily. Give 5 mg of Haldol IM at around bedtime tonight as this seems to work best for cannabinoid hyperemesis syndrome. Can advance her diet to a bland soft diet. I told her to eat sparingly and makesure she has no more vomiting. In the morning if no more vomiting can start Carafate liquid to reduce esophageal irritation from all of her vomiting. Recheck labs in the morning. Documented By: Gregorio Carey DO [id number] Signed By: <Electronically signed by Gregorio Carey DO> 08/21/[address] [facility] Work Phone: 1(496) 428-465709-23-2022 History and physical note Author Gregorio Carey [facility] August 20, 2022 8:17pm Note Date/Time August 20, 2022 8:17pm [facility] [address] [place] [address] Hospitalist H&P Signed Patient: Pili Parikh MR#: [id number] : 2005 Acct:[id number] Age/Sex: 17 / F Adm Date: 2 Loc: Room: [address] [place] [address] Type: ADM IN Attending Dr: Gregorio Carey DO Copies to: [facility] Senior Gregorio Carey DO~ HPI DATE OF EXAMINATION: 08/20/22 CHIEF COMPLAINT: Intractable nausea vomiting. HISTORY OF PRESENT ILLNESS: This is an 17-year-old female who came to the emergency room at least 3 or 4 times within the last 2 days because of intractable nausea and vomiting. On an ER visit yesterday CT scanning of the abdomen and pelvis was undertaken. It didshow some thickening of the distal esophagus, which is likely esophagitis from her protracted vomiting. Today her sodium is low at 135, potassium is low at 3.1, bicarb a little bit low 21.9, but magnesium was normal at 1.9. Yesterday testing was negative. She states that she was positive in January of this year but says my body could not handle that. On urine tox testing on April 2022 she was positive for marijuana but was negative in September2019 and May 2018. In the ER yesterday her white blood count was high 15.5 buttoday is normal at 10.9. Patient indicates that she has been feeling chills which is unusual for her. Noovert fevers. She has having some urinary discomfort. She says that a few daysago she had 1 episode of diarrhea but otherwise has not had any more bowel movements. She said that the diarrhea or look like clear liquid. Right now she has no headache. She does have a mild nonproductive cough. No chest pain or palpitations. Right now. She is not complaining of abdominal pain. But shesaid that for the last couple days she was not able to get sleep because of the abdominal pain and dry heaving. She denies any rashes on her skin. She denies any other acute illnesses recently. In the emergency room she was treated with multiple doses of Benadryl, dronabinol, Ativan, she got IV Protonix, she got Compazine, she had a green frogwhich she may have vomited back up, and she got at least 2 L of IV fluids. Upon arrival to the floor her father told nursing staff that he thought that sheshould eat some food. Clear liquid diet was provided but looking at her tray right now she really only took a couple bites of this. Upon arrival to the floor the patient told nursing staff that she wanted to take a shower. But whenI rounded on her couple hours later she has not yet taken a shower. Review of Systems Review of Systems Review of systems: 10 systems are reviewed and are negative except as mentioned elsewhere in the documentation. PMFSH Vaccinated for COVID-19?: No Medical History Anxiety Asthma Manic depression Migraine Normal endoscopy upper and lower POTS (postural orthostatic tachycardia syndrome) Smoker Surgical History History of esophagogastroduodenoscopy (EGD) Hx of appendectomy Hx of colonoscopy Family History Mother Depression Father Depression Father Cancer of kidney Father Diabetes Mother Anxiety Mother Fibromyalgia Mother Epilepsy Mother Cervical cancer Social History Smoking Status: Current some day smoker Tobacco Type: cigarettes Substance Use Type: None Substance Abuse Comment: THC Every once in awhile 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 Room darkened. Tired and lethargic. Head: Normal Cephalic, Atraumatic. Eyes: Conjunctiva and sclera clear bilaterally. Nose: External nose and nares normal bilaterally. Mouth: Lips and tongue normal. Neck: No JVD. No thyromegaly. No lymphadenopathy. Lungs: Clear to auscultation bilaterally, no wheezing, no crackles. Heart: Regular rate and rhythm, no murmurs, rubs, or gallops. Abdomen: Bowel sounds are rather hypoactive. To light palpation her abdomen shows no rigidity, guarding, or acute peritoneal signs. Extremities: No swelling or cords in the calves bilaterally, no edema in the ankles bilaterally. Skin: No systemic rashes or lesions. Psychiatric: Flattened affect. Does not really make much eye contact. Neuro: Awake, Alert, and Oriented x 3. No focal or lateralizing deficits. Results Lab Results Labs: Laboratory Last Values Corrected WBC 10.9 X10E3/uL (4.5-13.5) 08/20/22 16:21 Uncorrected WBC Count 10.9 x10E3/uL (4.5-13.5) 08/20/22 16:21 RBC 4.31 x10E6/uL (4.10-5.10) 08/20/22 16:21 Hgb 12.1 g/dL (12.0-16.0) 08/20/22 16:21 Hct 36.8 % (36.0-46.0) 08/20/22 16:21 MCV 85.5 fl (78-102) 08/20/22 16:21 MCH 28.1 pg (25.0-35.0) 08/20/22 16:21 MCHC 32.9 g/dL (31.0-37.0) 08/20/22 16:21 RDW 13.9 % (11.9-15.3) 08/20/22 16:21 Plt Count 145 x10E3/uL (150-450) L D 08/20/22 16:21 MPV 8.6 fl (6.3-10.7) 08/20/22 16:21 Neut % (Auto) 84.1 % (.) 08/20/22 16:21 Lymph % (Auto) 11.5 % (.) 08/20/22 16:21 Throckmorton % (Auto) 3.7 % (.) 08/20/22 16:21 Eos % (Auto) 0.3 % (.) 08/20/22 16:21 Baso % (Auto) 0.4 % (.) 08/20/22 16:21 Neut # (Auto) 9.2 x10E3/uL (1.2-7.7) H 08/20/22 16:21 Lymph # (Auto) 1.3 x10E3/uL (1.20-4.8) 08/20/22 16:21 Th[place]morton # (Auto) 0.4 x10E3/uL (0.1-1.00) 08/20/22 16:21 Eos # (Auto) 0.0 x10E3/uL (0.0-0.7) 08/20/22 16:21 Baso # (Auto) 0.0 x10E3/uL (0.0-0.1) 08/20/22 16:21 Nucleated RBC % (auto) 0.0 % (0-0.5) 08/20/22 16:21 Platelet Estimate Normal (Normal) 08/20/22 16:21 Plt Morphology Comment Normal (Normal) 08/20/22 16:21 RBC Morphology N/A 08/20/22 16:21 Anisocytosis Slight 08/20/22 16:21 PHA Creatinine Clear 136.96 08/20/22 16:21 Sodium 135 mmol/L (136-146) L 08/20/22 16:21 Potassium 3.1 mmol/L (3.5-5.1) L 08/20/22 16:21 Chloride 101 mmol/L (95-114) 08/20/22 16:21 Carbon Dioxide 21.9 mmol/L (22.0-30.0) L 08/20/22 16:21 Anion Gap 15.2 mEq/L (6.0-15.0) H 08/20/22 16:21 BUN 11 mg/dL (9-23) 08/20/22 16:21 Creatinine 0.65 mg/dL (0.44-1.03) 08/20/22 16:21 Est GFR ( Amer) > 60 mL/Min 08/20/22 16:21 Est GFR (Non-Af Amer) > 60 mL/Min 08/20/22 16:21 Glucose 96 mg/dL (70-100) 08/20/22 16:21 Calcium 8.6 mg/dL (8.2-10.2) 08/20/22 16:21 Magnesium 1.9 mg/dL (1.6-2.6) 08/20/22 16:21 COVID-19 Clin Com Negative (Negative) 08/20/22 14:53 SARS Antigen (LFIA) Negative (Negative) 08/20/22 14:53 Microbiology Results Micro: Microbiology - Results from entire visit 08/20/22 14:53 Nasal SARS Antigen (LFIA) - Final A&P - Hospitalist Assessment/Plan (1) Intractable nausea and vomiting: (2) Dehydration: (3) Hypokalemia: Plan Assessment: Presentation with intractable nausea vomiting that was unsuccessfully treated by outpatient efforts including at least 3 ER visits over the last 2 days. Does have ongoing hypokalemia and hyponatremia despite treatment in the ER multiple times. Does have very hypoactive bowel sounds concerning for development of early ileus. I do have a concern about urinary tract infection but a urine sample given in the ER yesterday looks like it will only grow skin contaminants and not provide a specific organism. Patient reported history of POTS. Plan: Generous IV fluids with IV potassium replacement. IV Protonix 40 mg IV twice daily. Nausea control with IV Zofran and IM Phenergan as needed. Can advance her diet with clear liquids very sparingly as long as she has absolutely no more vomiting. If any vomiting returns then she needs to be made a strict n.p.o. for at least 6 hours and then try again. May shower. Discussed with her bedside nurse that I want to try a good clean-catch urine sample to compare to her urinalysis from yesterday. Recheck labs in the morning. May be able to replace potassium more vigorously if she can tolerate oral intake of food or liquids. Documented By: Gregorio Carey DO 2008 Signed By: <Electronically signed by Gregorio Carey DO> 08/20/222016 [facility] Work Phone: [phone]) 891-845206-19-2022 Miscellaneous Notes* Telephone Encounter - Luana Mak RN - 05/16/2022 10:05 AM EDT Reason for Call: Frequent vomiting, chest pain (pressure like) since yesterday. Patient states she called 911 yesterday, they took her to the ER, and she was then sent home. Patient states she has a history of BUSCH. Outcome: Priority recommendation given. Patient advised to hang up, call 911, and go to the ER now.Patient verbalizes understanding. Patient states if she can find a way to [facility], she will go there. Reason for Disposition Chest pain [1] Chest pain lasts > 5 minutes AND [2] described as crushing, pressure-like, or heavy Protocols used: ABDOMINAL PAIN - [id number], CHEST [id number]-EH [facility] NoteHNO ID: [id number] Author: Rolando Wooten MD Service: ? Author Type: Physician Type: Procedures Filed: 11/13/2021 1:09 AM Note Text: UNIVERSAL PROTOCOL / SAFETY CHECKLIST Procedure to be Performed: incision drainage right peritonsillar abscess Sign In: A Moment of CARE was completed. Personnel directly involved with the procedure wore the appropriate PPE (Personal Protective Equipment). No special equipment needed. Patient/Surrogate Stated/Verified: PATIENT VERIFIED(optional for EMERGENT procedures): Patient name, Date of , Relevant allergies and The intended procedure Time Out Communication: Intended patient and procedure match the source documents. Consent documented and matches the intended procedure. No relevant labs, photos, and/or imaging studies were applicable for review. No correct side/site applicable for marking and visibility. Medications required for procedure verified. No fire risk assessment and interventions applicable. No implant(s) inserted. Sign Out: SIGN OUT (optional for EMERGENT procedures): All specimen containers correctly labeled. All instruments, equipment, possible retained foreign bodies accounted for. Post-procedure follow-up management communicated and Plan of Care Visit completed when applicable. PROCEDURE NOTE: IANDD right [employer] Risks, benefits, personnel and alternatives were explained. The patient wished to proceed. S/he was re-identified and a time out obtained. PROCEDURE drainage right [employer] PREOPERATIVE DIAGNOSIS: right peritonsillar abscess POSTOPERATIVE DIAGNOSIS tonsillitis without pus in right peritonsillar area INDICATIONS: chronic right throat pain, worsening, concern for right [employer] at outside facility on scan . Drainage of abscess and get cultures. ANESTHESIA: 1% lidocaine with 1:100,000 epinephrine PROCEDURE: With the patient sitting upright, informed consent was obtained. The patient was re-identified and a time out made. I then had her gargle with 4% lidocaine viscus solution for 30 seconds. I then injected 1 cc Of 1% lidocaine with 1:100,000 epinephrine into the right anterior tonsillar pillar. After allowing time for this to take effect I then used a 23-gauge needle to aspirate in the right peritonsillar area and did not get much on multiple aspirations just a very scant amount of thick possible purulence although it was not significant I did culture this. I then made an incision in a curvilinear fashion just lateral to the tonsil through the anterior tonsillar pillar I made multiple spreads both at the upper middle and inferior pole of the tonsil and there is no evidence of any purulent abscess pocket. The patient tolerated the procedure very well without any bleeding. FINDINGS: Very scant possible purulence adjacent to the right tonsil but nothing on incision and drainage I did send the needle aspirate for culture. Patient tolerated the procedure well, and there were no complication. MD Rolando Cherry, [facility]11-12-2021 NoteHNO ID: [id number] Author: Rolando Wooten MD Service: ? Author Type: Physician Type: Progress Notes Filed: 11/13/2021 1:09 AM Note Text: [facility] Consult This consult was requested by the emergency room for an opinion regarding peritonsillar abscess . My final recommendations will be communicated to the requesting provider by way of shared EMR or letter via the [place] mail. HPI: Pili Parikh is a 16 year old female presenting with off-and-on symptoms for about a month. She is presented to the emergency room multiple times and been treated with antibiotics with minimal improvement. She did have a mono test very early on. She states this was negative. She went to the emergency room yesterday and had a CT scan which I concern for a right peritonsillar abscess. She was given some antibiotics and discharged and sent here for follow-up. She denies breathing difficulty. She does have odynophagia. She does have severe fatigue. She does have lymphadenopathy in her neck. She does use Vape regularly. Pmxh: POTS Previous GI bleed from vomiting Had nose cauterization Pshx: GI scopes appendectomy Medications - Promethasine ALLERGIES No Known Allergies Famhx: Cervical Ca Breast CA Diabetes Heart attack Stroke Colon cancer Social History Tobacco Use - Smoking status: Not on file - Smokeless tobacco: Not on file Substance Use Topics - Alcohol use: Not on file - Drug use: Not on file Review of Systems - Eyes - Denies failing vision, denies double vision Ears - Denies drainage, denies hearing loss, denies dizziness, denies ringing NOse - Denies nosebleeds, denies drainage, denies sinus symptoms, denies nasal obstruction Throat - has sore throat, changes in voice, neck swelling. Lungs - Denies frequent cough, denies shortness of breath Heart - Denies chest pain, denies palpitations Gastrointestinal - Denies Stomach pain, denies nausea, denies vomiting , denies diarrhea, denies bleeding Genitourinary - Denies Burning, denies bleeding, denies pain or problems passing urine Neurological - Denies Convulsions, Denies seizures, denies memory loss, denies headaches Endocrine - Denies heat/cold intolerance, denies weight gain or loss, denies hair loss REVIEW OF RADIOLOGICAL FILMS AND RECORDS: None available to me today LABS: None available. PHYSICAL EXAM: Vitals - There were no vitals taken for this visit. Constitutional - General Appearance: well developed, well nourished, without obvious deformities Communication: speaks with a normal voice without hoarseness, slight bit of muffling to her voice but no stridor and breathing comfortably. Head AND Face - Overall: no obvious scars, lesions or masses Parotid and submandibular glands: no masses or tenderness Facial strength: normal and equal bilaterally Ear, Nose, Mouth AND Throat - Ears: both left and right external auditory canals and TM's are normal, no external deformities Nasal exam: mucosa is pink, septum is midline, visible turbinates are normal on anterior rhinoscopy Mastication: teeth appear in moderate repair Oral Cavity and oropharynx: There are prominent tonsils bilaterally the right is slightly more prominent today there is mild edema of the right palate oropharynx is clear the tongue is without lesions. There are some ulcerations and exudate on tonsils bilaterally. Neck: The right neck shows mild lymphadenopathy in level 2 which feels reactive to palpation. Thyroid: no asymmetry, thyromegaly, or thyroid nodules on palpation Cranial Nerves: II: Pupillary reflexes normal III, IV, : EOM normal V: 1,2,3: normal sensation VII: Normal strength in all divisions IX, X: Normal voice, palatal elevation and sensation XI: Shoulder strength normal XII: Tongue mobility normal Larynx: using the mirror was limited by patient gag FLEXIBLE LARYNGOSCOPY Indications: Airway evaluation given swelling. Limited by patient gag Procedure: With the patient sitting upright, informed consent was obtained. Topical anesthesia and vasoconstriction was applied with spray to the right side(s) of the nose. After waiting an appropriate period of time for anesthesia/vasoconstriction to become effective, a flexible laryngoscope was passed through the right side(s) of the nose and the nose, nasopharynx, oropharynx, hypopharynx and larnyx. The patient tolerated the procedure without complications. Findings: The nasal passageways and nasopharynx appear normal without edema or erythema. The oropharynx, base of tongue, piriform sinuses, epiglottis, and aryepiglottic folds were examined and no masses, lesions, or ulcerations were seen. The true vocal cords move well to midline bilaterally. The airway is widely patent. No significant pharyngeal or supraglottic edema. ASSESSMENT: The patient with 1 month of off and on severity of odynophagia and symptoms of tonsillitis. 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 Medical History intermittent asthma Medical History lactose intolerance Medical History POTS diag 09/2015 Surgical History appendectomy 2018 Hospitalization History strepthroat, uri, dehydr ation, otitis media 2004 Hospitalization History dehydtation 2006 Hospitalization History [facility] [place]iti [place] 09/12- Hospitalization History 3 days vomitting blood 0 01/2017 Hospitalization History vomiting, abd pain, dehy dration [facility] [place] 07/22-07/27/2017 Hospitalization History RBC 08/14 [facility] Other Evaluation noteNo assessment information available [facility] Work Phone: Evaluation note* Diagnosis Onset Date Resolution Status Nausea & vomiting acute [facility] Work Phone: Evaluation note* Diagnosis Onset Date Resolution Status Dehydration acute Hypokalemia acute Intractable nausea and vomiting acute Nausea & vomiting acute [facility] Work Phone: Evaluation note* Diagnosis Onset Date Resolution Status Abdominal pain acute Acute hypokalemia acute Chest pain acute Dehydration acute Hypokalemia acute Hypovolemia acute Beverley-Cotton tear acute Nausea & vomiting acute [facility] Work Phone: History and physical note Author Eliana Bautista [facility] January 07, 2023 2:11am Note Date/Time January 06, 2023 5 :30pm [facility] [address] [place] [address] Hospitalist H&P Signed Patient: Pili Parikh MR#: [id number] : 2005 Acct:[id number] Age/Sex: 17 / F Adm Date: 3 Loc: Room: [address] [place] [address] Type: ADM INOo Attending Dr: Eliana Bautista MD Copies to: [facility] FRANKY Starkey MD~ HPI DATE OF EXAMINATION: 01/06/23 CHIEF COMPLAINT: Nausea/vomiting abdominal pain HISTORY OF PRESENT ILLNESS: Pili Parikh is an 17-year-old female with a past medical history of POTS syndrome, anxiety, depression, cannabis hyperemesis syndrome who presents to theemergency room for the second time this week with complaints of abdominal pain, nausea and vomiting. She was last seen in the ED on Tuesday when she came in with similar symptoms and was discharged from the ER with with promethazine. She however reports that despite taking promethazine her symptoms have not relieved. Prior to that she was seen and evaluated in the ED on 12/31 with complaints of nonproductive cough, myalgias and ongoing abdominal pain nausea and generalized weakness. She is reporting abdominal pain across her upper abdomen which she reports has been ongoing for about a week. She describes it as constant pain which is made worse with nausea and vomiting. She also reports urinary frequency, however denies dysuria. She denies having any diarrhea, fevers or chills. She states that she is on her menstrual cycle. She states she last took marijuana a month ago. She has had poor oral intake as she is not able to keep anything down. Currently she is reporting abdominal pain, withnausea. Denies chest pain or palpitation. No cough, dyspnea, or pain with inspiration. No dysuria or retention. Reports slight headache, denies dizziness. No fevers Upon arrival to the ER, pelvis x-ray did not show any significant bony abnormality. WBC 17.7. Potassium 2.7. Urinalysis was positive for urine ketones, occult blood, salicylates, WBCs and bacteria. She was administered Promethazine 12.5 mg. Zofran 4 mg Toradol 30 mg. Ceftriaxone 1 gm. Protonix 40 mg. Normal saline 2000 mL bolus. She will be admitted by the hospitalist team for further evaluation and management . Review of Systems Review of Systems Review of systems: 10 point review of systems obtained, negative unless noted in the HPI or below PMFSH Attestation Statement: The following information was validated with the patient. Source: Old Records Reviewed Vaccinated for COVID-19?: No Medical History Anxiety Asthma Manic depression Migraine Normal endoscopy upper and lower POTS (postural orthostatic tachycardia syndrome) Smoker Surgical History History of esophagogastroduodenoscopy (EGD) Hx of appendectomy Hx of colonoscopy Family History Mother Depression Father Depression Father Cancer of kidney Father Diabetes Mother Anxiety Mother Fibromyalgia Mother Epilepsy Mother Cervical cancer Social History Smoking Status: Current every day smoker Tobacco Type: cigarettes Substance Use Type: None Substance Abuse Comment: THC Every once in awhile 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 Medications and Allergies Allergies haloperidol [From Haldol] Allergy (Verified 01/06/23 11:12) Unknown Reaction metoclopramide [From Reglan] Allergy (Verified 01/02/23 01:18) Unknown Reaction Home Medications ondansetron 8 mg disintegrating tablet 8 mg PO Q8H PRN nausea and vomiting 4 days #10 tabs 11/09/22 [Rx Confirmed 01/06/23] promethazine 25 mg tablet 25 mg PO TID PRN nausea and vomiting 7 days #21 tabs 12/31/22 [Rx Confirmed 01/06/23] promethazine 25 mg rectal suppository 25 mg OR Q6H PRN Nausea #10 supp 01/02/23 [Rx Confirmed 01/06/23] omeprazole 20 mg capsule,delayed release 20 mg PO BID PRN Abdominal Discomfort 01/06/23 [History Confirmed 01/06/23] Exam Physical Exam Vital Signs: Temp Pulse Resp BP Pulse Ox O2 Del Method 98 F 60 16 157/84 95 Room Air 01/06/23 11:12 01/06/23 15:44 01/06/23 15:44 01/06/23 15:44 01/06/23 15:44 01/06/23 15:44 Narrative: CONST- Appear well developed. No acute distress. HEAD - Normocephalic and atraumatic EENT-Sclera nonicteric and conjunctive are nonerythemic, moist oral mucosa, pharynx clear NECK-Supple, no cervical lymphadenopathy CARDIAC-normal rate, regular rhythm, normal S1 & S2. PULM- Clear without wheeze or rhonchi, RA, no accessory muscle use or cough noted ABD - Soft. Bowel sounds are normal. No distention. Tenderness with palpation, no rebound tenderness EXTREM-no edema BLE calves nontender SKIN- W/D good turgor MS- MAEX4 spontaneously with equal with equal strength NEURO- A&Ox3 speech clear and tongue midline, equal facial symmetry no focal motor deficits PSYCH-Mood, affect and behavior appropriate Results Lab Results Labs: Laboratory Last Values Corrected WBC 17.7 X10E3/uL (4.5-13.5) H 01/06/23 14:20 Uncorrected WBC Count 17.7 x10E3/uL (4.5-13.5) H 01/06/23 14:20 RBC 5.65 X10E6/uL (4.10-5.10) H 01/06/23 14:20 Hgb 16.2 g/dL (12.0-16.0) H 01/06/23 14:20 Hct 48.3 % (36.0-46.0) H 01/06/23 14:20 MCV 85.4 fl (78-102) 01/06/23 14:20 MCH 28.7 pg (25.0-35.0) 01/06/23 14:20 MCHC 33.6 g/dL (31.0-37.0) 01/06/23 14:20 RDW 13.5 % (11.9-15.3) 01/06/23 14:20 Plt Count 296 x10E3/uL (150-450) 01/06/23 14:20 MPV 8.5 fl (6.3-10.7) 01/06/23 14:20 Neut % (Auto) 70.1 % (.) 01/06/23 14:20 Lymph % (Auto) 19.9 % (.) 01/06/23 14:20 Throckmorton % (Auto) 7.4 % (.) 01/06/23 14:20 Eos % (Auto) 2.3 % (.) 01/06/23 14:20 Baso % (Auto) 0.3 % (.) 01/06/23 14:20 Nucleat RBC Rel Count 0.1 /100 WBC (0-0.5) 01/06/23 14:20 Neut # (Auto) 12.4 x10E3/uL (1.2-7.7) H 01/06/23 14:20 Lymph # (Auto) 3.5 x10E3/uL (1.20-4.8) 01/06/23 14:20 [place]morton # (Auto) 1.3 x10E3/uL (0.1-1.00) H 01/06/23 14:20 Eos # (Auto) 0.4 x10E3/uL (0.0-0.7) 01/06/23 14:20 Baso # (Auto) 0.0 x10E3/uL (0.0-0.1) 01/06/23 14:20 Monocyte Dist Width 15.43 % (0.00-20.00) 01/06/23 14:20 PHA Creatinine Clear 102.00 01/06/23 14:20 Sodium 132 mmol/L (136-146) L 01/06/23 14:20 Potassium 2.7 mmol/L (3.5-5.1) L* 01/06/23 14:20 Chloride 91 mmol/L (95-114) L 01/06/23 14:20 Carbon Dioxide 24.3 mmol/L (22.0-30.0) 01/06/23 14:20 Anion Gap 19.4 mEq/L (6.0-15.0) H 01/06/23 14:20 BUN 19 mg/dL (9-23) 01/06/23 14:20 Creatinine 0.86 mg/dL (0.44-1.03) 01/06/23 14:20 Est GFR ( Amer) > 60 mL/Min 01/06/23 14:20 Est GFR (Non-Af Amer) > 60 mL/Min 01/06/23 14:20 Glucose 80 mg/dL (70-100) 01/06/23 14:20 Lactic Acid 1.6 mmol/L (0.5-2.2) 01/06/23 14:26 Calcium 9.8 mg/dL (8.2-10.2) 01/06/23 14:20 Total Bilirubin 1.5 mg/dL (0.3-1.2) H 01/06/23 14:20 AST 20 U/L (10-42) 01/06/23 14:20 ALT 20 U/L (10-60) 01/06/23 14:20 Alkaline Phosphatase 66 U/L (32-92) 01/06/23 14:20 Total Protein 7.8 gm/dL (6.1-7.9) 01/06/23 14:20 Albumin 4.9 gm/dL (3.2-5.5) 01/06/23 14:20 Globulin 2.9 gm/dL 01/06/23 14:20 Albumin/Globulin Ratio 1.7 01/06/23 14:20 Lipase 31.0 U/L (22-51) 01/06/23 14:20 Urine Color Yellow (Yellow) 01/06/23 16:10 Urine Appearance Cloudy (Clear) A 01/06/23 16:10 Urine pH 6.5 (5.0-9.0) 01/06/23 16:10 Ur Specific Crane 1.027 (1.001-1.030) 01/06/23 16:10 Urine Protein 100 mg/dL (Negative) H 01/06/23 16:10 Urine Glucose (UA) Normal mg/dL (Normal) 01/06/23 16:10 Urine Ketones 4+ (Negative) H 01/06/23 16:10 Urine Occult Blood 3+ (Negative) H 01/06/23 16:10 Urine Nitrite Negative (Negative) 01/06/23 16:10 Urine Bilirubin Negative (Negative) 01/06/23 16:10 Urine Urobilinogen Normal mg/dL (Normal) 01/06/23 16:10 Ur Leukocyte Esterase 2+ (Negative) H 01/06/23 16:10 Urine RBC None seen /HPF (0-4) 01/06/23 16:10 Urine WBC 20-49 /HPF (0-4) H 01/06/23 16:10 Ur Squamous Epith Cells 10-19 /HPF (0-2) H 01/06/23 16:10 Urine Bacteria 1+ (None Seen) H 01/06/23 16:10 Hyaline Casts None seen /LPF (0-1) 01/06/23 16:10 Other Casts None seen /LPF (None Seen) 01/06/23 16:10 Urine HCG, Qual Negative 01/06/23 16:10 A&P - Hospitalist Assessment/Plan (1) Abdominal pain: (2) Nausea & vomiting: (3) Dehydration: (4) Hypokalemia: Plan Abdominal pain/Intractable nausea and vomiting Hypokalemia Leukocytosis Possible urinary tract infection Possible cannabis hyperemesis syndrome Patient with multiple presentation to the emergency department for the same issue, she presents today with abdominal pain, intractable nausea and vomiting for 1 week which has not been relieved by Phenergan that she was given on her last visit to the ED. she has a history of POTS syndrome and has nausea and vomiting about twice in a month but she states this is worse than her symptoms. ?Pelvis x-ray did not show any acute bony prominence. test is negative ?Chest x-ray did not show any acute process ?Urinalysis positive for leukocyte esterase, WBC, RBCs and bacteria. Her last urine culture from the 12/31 grew Staphylococcus of epididymis with a 75,000 colony count. ?White count 17,7potassium 2.9 .Was administered ceftriaxone,in ED ?Check drug screen, Blood cultures and urine cultures pending ?CT abdomen/pelvis with contrast pending ?Continue IV fluids with IV potassium replacement. ?Start Protonix 40 mg IV twice daily. ? Zofran and Phenergan as needed. ?Clear liquids for now and if she continues to vomit, will put n.p.o. DVT prophylaxis: SCDs Attending Physician Attestation: I personally saw this patient on the day of the encounter, reviewed the history,performed the peacock elements of the exam, formulated the plan of care and confirmed the written note. I agree with the findings and plan as documented in this note and have edited it if needed to reflect my findings and plan. Eliana Bautista MD Documented By: Anette Stout APRN 01/06/23 4658 Signed By: <Electronically signed by FRANKY Stout> 01/06/23 5211 <Electronically signed by Eliana Bautista MD> 01/07/23 0211 [facility] Work Phone: Hospital course Narrative No data available for this section [facility] Work [facility] Discharge instructions Additional Instructions Follow-up with your primary care doctor Return to ED if develop worsening symptoms or concernsFair[facility] Work Phone: Hospital Discharge instructions Additional Instructions Follow-up with your primary care doctor Return to the ED if you develop worsening symptoms or concernsFair[facility] Work Phone: Hospital Discharge instructions Additional Instructions Take Phenergan as prescribed for nausea vomiting. Take Motrin and Tylenol as needed for muscle aches and pains. Take Carafate as prescribed.[facility] Work Phone: Hospital Discharge instructions Additional Instructions DISCHARGE INSTRUCTIONS FOR/tibial spine fracture fixation The following instructions must be followed very closely: 1. If you need pain pills, start before pain becomes intense. Antibiotics and pain pills are frequently less upsetting to your stomach if you take them with food such as crackers or bread. 2. If you are having excessive or persistent pain, swelling, bleeding, nausea, vomiting, or any other problems, you should first call your surgeon for advice. If you are unable to contact her surgeon, seek help from a hospital emergency room. If you are given drugs to make you drowsy and/or pain medication, follow these instructions: 1. You should spend the remainder of the day and evening resting. 2. He should not attempt to walk, including going to the bathroom, without assistance. He may be lightheaded from the medications he received. 3. Eat light today to avoid nausea. You should be able to return to normal diet 24-36 hours after surgery. 4. For the next 24 hours he should not consume alcohol, attempt to drive, use any power tools, site important documents or make important personal or business decisions. After that do so only if you feel perfectly normal and alert. 5. Follow carefully any verbal or written instructions her surgeon may have given you. Surgeon's written instructions: It's very important to take aspirin after surgery if your surgeon has directed you to do so. This helps prevent post-op blood clots. If you are unsure about an aspirin regimen, contact your surgeon as soon as possible. POST OPERATIVE EXERCISE 1. Maintain brace in place when attempting to walk and sleep. Nonweightbearing on the involved extremity 2. OK to remove brace to begin range of motion exercise. 3. Work on gentle flexion and attempt to obtain full knee extension every 2 hrs as tolerated. 4. Nonweightbearing on the involved extremity 5. Work on straight leg raises many times a day 6. Ok to begin gentle stationary bike activity or similar motion as tolerated. DRESSINGS Ok to remove dressing after 24-48 hrs and leave open to air at times. Recover wounds with gauze when up and moving or sleeping. Ok to remove dressings to work on gentle motion exercise. Keep wounds clean and dry for 10-14 days. Ok to clean around wounds with damp clean cloth. OTHER IMPORTANT CARE 1. Take pain medications as directed. 2. Begin taking oral antibiotics the first evening and finish the provided amount as directed. 3. Icing device to knee for comfort. Aproximately 20 minutes per hour can be beneficial to relieve pain. 4. Elevate leg above the level of the heart (as high as possible) to reduce swelling and pain. 5. Wrapping the knee and calf with an maki wrap firmly can provide comfort at times. Obtaining a knee high moderate compression sleeve for the calf can be helpful for swelling and comfort at times 6. Call the office to confirm your postoperative appointment to see the surgeon in 1 week. 7. If you are having excessive or persistent pain, swelling, fever (oral temp >101), yellow-green foul smelling drainage or bleeding from incision, excessive redness of incision, nausea, vomiting, or any other problems, you should first call your surgeon at [phone] for advice. If your are unable to contact your surgeon, seek help from a hospital emergency room. [facility] Work Phone: Progress note No data available for this section [facility] Summary Purpose Family History No Family History Records Found Relationship Condition Age at Onset Recorded Date/T marvin Not Specified Depression Unknown father Depression Unknown father Malignant neoplasm of kidney Unknown father Diabetes mellitus Unknown Not Specified Anxiety Unknown Not Specified Fibromyalgia Unknown Not Specified Epilepsy Unknown Not Specified Malignant neoplasm of cervix Unknown Advance Directives No Advanced Directives Records Found Advance Directive Response Recorded Date/ Time Advance Directives No October 03, 2017 12:38pm Advance Directive Response Recorded Date/ Time Advance Directives No October 03, 2017 11:38am Chief Complaint and Reason for Visit Chief Complaint nasuae, dizzy nausea, vomitting nausea, vomiting weakness vomiting R11.2 R19.5 R53.83 gen abd pain, hematemesis w/nausea, loose stools, gen abd pain, hematemesis w/nausea, loose stools, E55.9 R79.0 R53.83 Chief Complaint R11.2 R19.5 R53.83 gen abd pain, hematemesis w/nausea, loose stools, gen abd pain, hematemesis w/nausea, loose stools, E55.9 R79.0 R53.83 Miraine, n/v Chief Complaint R11.2 R19.5 R53.83 gen abd pain, hematemesis w/nausea, loose stools, gen abd pain, hematemesis w/nausea, loose stools, E55.9 R79.0 R53.83 Miraine, n/v Vomiting Chief Complaint R11.2 R19.5 R53.83 gen abd pain, hematemesis w/nausea, loose stools, gen abd pain, hematemesis w/nausea, loose stools, E55.9 R79.0 R53.83 Miraine, n/v Vomiting vomiting Chief Complaint R11.2 R19.5 R53.83 gen abd pain, hematemesis w/nausea, loose stools, gen abd pain, hematemesis w/nausea, loose stools, E55.9 R79.0 R53.83 Miraine, n/v Vomiting vomiting vomiting headache abd pain Reason for Visit Nausea & vomiting Chief Complaint R11.2 R19.5 R53.83 gen abd pain, hematemesis w/nausea, loose stools, gen abd pain, hematemesis w/nausea, loose stools, E55.9 R79.0 R53.83 Miraine, n/v Vomiting vomiting vomiting headache abd pain Reason for Visit Dehydration Hypokalemia Intractable nausea and vomiting Nausea & vomiting Chief Complaint Miraine, n/v Vomiting vomiting vomiting headache abd pain R11.2 vomiting , chest pain Reason for Visit Dehydration Hypokalemia Intractable nausea and vomiting Nausea & vomiting Chief Complaint Miraine, n/v Vomiting vomiting vomiting headache abd pain R11.2 vomiting , chest pain NAUSEA/VOMITTING Reason for Visit Dehydration Hypokalemia Intractable nausea and vomiting Nausea & vomiting Chief Complaint Miraine, n/v Vomiting vomiting vomiting headache abd pain R11.2 vomiting , chest pain NAUSEA/VOMITTING vomiting Reason for Visit Dehydration Hypokalemia Intractable nausea and vomiting Nausea & vomiting Chief Complaint Miraine, n/v Vomiting vomiting vomiting headache abd pain R11.2 vomiting , chest pain NAUSEA/VOMITTING vomiting N/D/V Reason for Visit Dehydration Hypokalemia Intractable nausea and vomiting Nausea & vomiting Chief Complaint Miraine, n/v Vomiting vomiting vomiting headache abd pain R11.2 vomiting , chest pain NAUSEA/VOMITTING vomiting N/D/V n/v Reason for Visit Dehydration Hypokalemia Intractable nausea and vomiting Nausea & vomiting Chief Complaint vomiting , chest mira n NAUSEA/VOMITTING vomiting N/D/V n/v N/V Chief Complaint vomiting , chest mira n NAUSEA/VOMITTING vomiting N/D/V n/v N/V vomiting vomiting, dizzy Reason for Visit Abdominal pain Acute hypokalemia Chest pain Dehydration Hypokalemia Hypovolemia Beverley-Cotton tear Nausea & vomiting Chief Complaint R11.2 J02.9 R50.9 Fracture Chief Complaint Fracture S82.111D Chief Complaint Fracture S82.111D s82.111d Chief Complaint Fracture S82.111D s82.111d S82.111D stomach and chest pain vomitting Additional Source Comments INFORMATION SOURCE (unrecogn ized section and content) DATE CREATED AUTHOR 06/05/2018 [employer] DATE CREATED AUTHOR AUTHOR'S ORGANIZ ATION 07/14/2018 [facility] DATE CREATED AUTHOR AUTHOR'S ORGANIZ ATION 01/04/2022 [facility] DATE CREATED AUTHOR AUTHOR'S ORGANIZ ATION 02/02/2023 [facility] DATE CREATED AUTHOR AUTHOR'S ORGANIZ ATION 08/13/2023 [facility] DATE CREATED AUTHOR AUTHOR'S ORGANIZ ATION 03/18/2024 [facility] Source Comments (unrecognize d section and content) In the event this informatio n is protected by the Federal Confidentiality of Alcohol and Drug Abuse Patient Records regulations: The Federal rules restrict any use of the information to criminally investigate or prosecute any alcohol or drug abuse patient.[facility] Reason for Visit (unrecogniz ed section and content) Reason Comments Abdominal Pain Care Teams (unrecognized sec tion and content) Team Status: Inactive Member Role Status Dates Services [facility] Primary Care Provider Ac latesha Chand NP-C Attending Provide r Active Team Status: Inactive Member Role Status Dates Services [facility] Primary Care Provider Active Modesta Chand NP-Trinidad Attending Provide r Active Team Status: Inactive Member Role Status Dates Services [facility] Primary Care Provider Active Brennen Britt MD Attending Provider Active Team Status: Inactive Member Role Status Dates Services [facility] Primary Care Provider Active Art Bianchi DO Emergency Provider Active Team Status: Inactive Member Role Status Dates Services [facility] Primary Care Provider Active Ravi Arguello DO Emergency Provider Active Team Status: Inactive Member Role Status Dates Services [facility] Primary Care Provider Active Ender Donovan DO Emergency Provider Active Team Status: Inactive Member Role Status Dates Services [facility] Primary Care Provider Active Gilson Castro DO Emergency Provider Active Team Status: Active Member Role Status Dates Services [facility] Primary Care Provider Ac tive Team Status: Inactive Member Role Status Dates Services [facility] Primary Care Provider Ac latesha Rivera APRN Emergency Provider Active Team Status: Inactive Member Role Status Dates Services [facility] Primary Care Provider Ac lulve Colten Fry Jr, MD Emergency Provider Active Team Status: Inactive Member Role Status Dates Services [facility] Primary Care Provider Ac latesha Castro DO Emergency Provider Active Team Status: Active Member Role Status Dates Services [facility] Primary Care Provider Ac latesha Castro , DO Emergency Provider Active Gregorio Carey , DO Admit Provider, Attending Jonatan an Active Team Status: Inactive Member Role Status Dates Services [facility] Primary Care Provider Ac latesha Castro , DO Emergency Provider Active Gregorio Carey , DO Admit Provider, Attending Pr sharleneer Active Team Status: Inactive Member Role Status Dates Pending Sale To [facility] Primary Care Provider Ac tive Ravi Arguello , DO Emergency Provider Active Team Status: Inactive Member Role Status Dates Art aJyy Bianchi , DO Emergency Provider Active Services [facility] Primary Care Provider Ac tive Team Status: Inactive Member Role Status Dates Pending Sale To [facility] Primary Care Provider Ac tive Robert Henley , DO Emergency Provider Active Team Status: Inactive Member Role Status Dates Services [facility] Primary Care Provider Ac tive Art Bianchi , DO Emergency Provider Active Team Status: Inactive Member Role Status Dates Services [facility] Primary Care Provider Active Corey Newberry MD Emergency Provider Active Team Status: Active Member Role Status [facility] Primary Care Provider Active Team Status: Inactive Member Role Status [facility] Primary Care Provider Active Federico Randolph , DO Emergency Provider Active Team Status: Active Member Role Status [facility] Primary Care Provider Active Rd Brown PA-C Emergency Provider Active Eliana Bautista MD Admit Provider, Attending Provider Active Team Status: Inactive Member Role Status [facility] Primary Care Provider Active Rd Brown PA-C Emergency Provider Active Eliana Bautista MD Admit Provider, Attending Provider Active Team Status: Inactive Member Role Status [facility] Primary Care Provider Active Colten Miller MD Attending Provider Active Goals (unrecognized section and content) Goals may be documented in a n alternate sectionNo InformationNo InformationNo Information No data available for this section No data available for this section FOR RECORDS PERTAINING TO PATIENTS WHO ARE OR HAVE BEEN ENROLLED IN A CHEMICAL DEPENDENCY/SUBSTANCEABUSE PROGRAM, SOME INFORMATION MAY BE OMITTED. This clinical summary was aggregated from multiple sources. Caution should be exercised in using it in the provision of clinical care. This summary normalizes information from multiple sources, and as a consequence, information in this document may materially change the coding, format and clinical context of patient data. In addition, data may be omitted in some cases. CLINICAL DECISIONS SHOULD BE BASED ON THE PRIMARY CLINICAL RECORDS. [employer] provides no warranty or guarantee of the accuracy or completeness of information in this document.
--- NOTE | 2024-03-18 20:08 | ED.NAVMDI1 ---
HPI - Nausea/Vomiting/Diarrhea General Chief complaint: Nausea/Vomiting/Diarrhea Stated complaint: nausea and vomiting Time Seen by Provider: 03/18/24 20:02 Source: patient Mode of arrival: walk-in History of Present Illness HPI Narrative: presents with recurrent vomiting. 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 States she will experience episodes of recurrent vomiting like this at times. this has been ongoing for the past week. States she took phenergan ealier today and it did not help Related Data Home Medications ?Medication ?Instructions ?Recorded ?Confirmed albuterol sulfate 90 mcg/actuation 2 puff inhalation Q6H PRN 03/18/24 03/18/24 aerosol inhaler shortness of breath or wheezing hydrocodone 5 mg-acetaminophen 325 1 tab PO Q6H PRN pain 03/18/24 03/18/24 mg tablet methocarbamol 500 mg tablet 500 mg PO TID 03/18/24 03/18/24 naproxen 500 mg tablet 500 mg PO BID PRN pain 03/18/24 03/18/24 Previous Rx's ?Medication ?Instructions ?Recorded promethazine 25 mg rectal 25 mg NC Q6H PRN nausea and 03/13/24 suppository vomiting #12 ea promethazine 25 mg tablet 25 mg PO Q6H PRN nausea and 03/13/24 vomiting #20 tabs Allergies Allergy/AdvReac Type Severity Reaction Status Date / Time metoclopramide [From Reglan] AdvReac Intermediate facial Verified 01/05/24 11:56 drooping Review of Systems ROS Status of ROS 10 or more systems reviewed and unremarkable except as noted in history and below [facility] Medical History (Updated 03/18/24 @ 21:03 by Drew Steinberg MD) Leukocytosis ?D72.829 - Elevated white blood cell count, unspecified (ICD-10) Bipolar 1 disorder ?F31.9 - Bipolar disorder, unspecified (ICD-10) Migraine ?G43.909 - Migraine, unspecified, not intractable, without status migrainosus (ICD-10) POTS (postural orthostatic tachycardia syndrome) ?G90.A - Postural orthostatic tachycardia syndrome [POTS] (ICD-10) Cyclic vomiting syndrome ?R11.15 - Cyclical vomiting syndrome unrelated to migraine (ICD-10) Cyclic vomiting syndrome ?R11.15 - Cyclical vomiting syndrome unrelated to migraine (ICD-10) Fall ?W19.XXXA - Unspecified fall, initial encounter (ICD-10) Fracture of tibial plateau ?S82.143A - Displaced bicondylar fracture of unspecified tibia, initial encounter for closed fracture (ICD-10) Surgical History History of appendectomy ?Z90.49 - Acquired absence of other specified parts of digestive tract (ICD-10) Family History Father Family history of stroke Family history of diabetes mellitus Family history of cancer Family history of hypertension Family history of CHF (congestive heart failure) Grandfather Family history of stroke Grandmother Family history of myocardial infarction Mother Family history of diabetes mellitus Family history of cancer Social History Within the past year, how often did you have a drink containing alcohol: never Score interpretation: A score less than 3 is consistent with normal alcohol consumption. Smoking status: Current every day smoker Non-prescribed substance use: cannabis (any form) Do you think of yourself as: straight/heterosexual Gender Identity: female Exam Constitutional Vital Signs, click to edit/add: Last Vital Signs Temp 98.3 F 03/18/24 19:32 Pulse 116 H 03/18/24 19:32 Resp 18 03/18/24 19:32 BP 148/82 H 03/18/24 20:10 Pulse Ox 96 03/18/24 19:32 O2 Del Method Room Air 03/18/24 19:32 Common normals: no apparent distress, average body habitus, oriented x3, no limitations, healthy appearing, alert and well nourished [facility] Common normals: normocephalic and head/scalp atraumatic Respiratory Common normals: normal respiratory effort, no retractions, no use of accessory muscles and clear to auscultation bilaterally Cardio Common normals: regular rate, regular rhythm, S1 normal heart sound and S2 normal heart sound GI Common normals: Normal to inspection, nondistended, normoactive bowel sounds present and soft to palpation Other: mild gen. nonspecific tenderness Extremity Common normals: normal to inspection and full ROM Neuro Common normals: oriented x3, CN's II-XII intact bilaterally, moves all extremities and no focal motor deficits Psych Appearance: grossly normal Course Vital Signs Vital signs: Vital Signs Temperature 98.3 F 03/18/24 19:32 Pulse Rate 116 H 03/18/24 19:32 Respiratory Rate 18 03/18/24 19:32 Blood Pressure 149/101 H 03/18/24 19:32 Pulse Oximetry 96 03/18/24 19:32 Oxygen Delivery Method Room Air 03/18/24 19:32 Temperature 98.3 F 03/18/24 19:32 Pulse Rate 116 H 03/18/24 19:32 Respiratory Rate 18 03/18/24 19:32 Blood Pressure 148/82 H 03/18/24 20:10 Pulse Oximetry 96 03/18/24 19:32 Oxygen Delivery Method Room Air 03/18/24 19:32 MDM - Nausea/Vomiting/Diarrhea MDM Narrative Medical decision making narrative: patient presents complaining of recurrent nausea and vomiting . Past history of the same several times in the past which she relates to her Man disease. labs demonstrate hypokalemia. Nursing not abler to start an IV and patient is asking to leave. She requested not to sign out AMA. Stated she was going to go to another hospital who is more familiar with her. Advised to inform them of her low potassium.Discharged per her request Lab Data Labs: Lab Results 03/18/24 Range/Units 20:30 WBC 18.2 H (4.0-11.0) 10^3/uL RBC 5.75 H (4.20-5.40) 10^6/uL Hgb 16.2 H (12.0-16.0) g/dL Hct 48.0 (36.0-48.0) % MCV 83.5 (81.0-99.0) fL MCH 28.2 (26.7-34.0) pg MCHC 33.8 (29.9-35.2) g/dL RDW 13.1 (11.0-15.0) % Plt Count 359 (150-450) 10^3/uL MPV 10.1 (9.5-13.5) fL Neut % (Auto) 67.2 (43.0-75.0) % Lymph % (Auto) 22.0 (20.5-60.0) % Angelina % (Auto) 7.4 (1.7-12.0) % Eos % (Auto) 2.0 (0.9-7.0) % Baso % (Auto) 0.5 (0.2-2.0) % Neut # (Auto) 12.2 H (1.4-6.5) 10^3/uL Lymph # (Auto) 4.0 H (1.2-3.8) 10^3/uL Angelina # (Auto) 1.3 H (0.3-0.8) 10^3/uL Eos # (Auto) 0.4 (0.0-0.7) 10^3/uL Baso # (Auto) 0.1 (0.0-0.1) 10^3/uL Abs Immat Gran (auto) 0.17 H (0.00-0.03) 10^3/uL Imm/Tot Granulo (auto) 0.9 H (0.0-0.5) % Sodium 136 (136-145) mmol/L Potassium 2.7 L* (3.5-5.1) mmol/L Chloride 95 L (98-107) mmol/L Carbon Dioxide 24.9 (21.0-32.0) mmol/L Anion Gap 18.8 BUN 26.0 H (7.0-18.0) mg/dL Creatinine 0.83 (0.55-1.02) mg/dL Est GFR ( Amer) >60 (>=60) Est GFR (Non-Af Amer) >60 (>=60) BUN/Creatinine Ratio 31.3 Glucose 95 (74-106) mg/dL Calcium 10.3 H (8.5-10.1) mg/dL Discharge Plan Discharge Stand Alone Forms: Portal Instructions Chief Complaint: Nausea/Vomiting/Diarrhea Clinical Impression: Nausea and vomiting, Hypokalemia Patient Disposition: Home, Self-Care Prescriptions / Home Meds: No Action promethazine 25 mg tablet 25 mg PO Q6H PRN (Reason: nausea and vomiting) Qty: 20 0RF promethazine 25 mg suppository 25 mg NC Q6H PRN (Reason: nausea and vomiting) Qty: 12 0RF albuterol sulfate 90 mcg/actuation HFA aerosol inhaler 2 puff INHALATION Q6H PRN (Reason: shortness of breath or wheezing) hydrocodone-acetaminophen 5-325 mg tablet 1 tab PO Q6H PRN (Reason: pain) methocarbamol 500 mg tablet 500 mg PO TID naproxen 500 mg tablet 500 mg PO BID PRN (Reason: pain) Print Language: Venezuelan Instructions: Hypokalemia (ED), Acute Nausea and Vomiting (ED) Referrals: Modesta Chand, FRETTED STRING INSTRUMENT REPAIRER [Primary Care Provider] - 1 week
[2024-03-18 20:10] VITALS: BP 148/82
[2024-03-18 20:38] LABS: Basophils Absolute Auto 0.1 10^3/uL (0.0-0.1); Basophils Percent Auto 0.5 % (0.2-2.0); Eosinophils Absolute Auto 0.4 10^3/uL (0.0-0.7); Hemoglobin 16.2 g/dL (12.0-16.0); Immature Granulocytes Abs Auto 0.17 10^3/uL (0.00-0.03); Immature Granulocytes Pct Auto 0.9 % (0.0-0.5); Mean Corpuscular HGB Conc 33.8 g/dL (29.9-35.2); Mean Corpuscular Hemoglobin 28.2 pg (26.7-34.0); Mean Corpuscular Volume 83.5 fL (81.0-99.0); Mean Platelet Volume 10.1 fL (9.5-13.5); Monocytes Absolute Auto 1.3 10^3/uL (0.3-0.8); Monocytes Percent Auto 7.4 % (1.7-12.0); Neutrophils Absolute Auto 12.2 10^3/uL (1.4-6.5); Neutrophils Percent Auto 67.2 % (43.0-75.0); Platelet Count 359 10^3/uL (150-450); Red Blood Count 5.75 10^6/uL (4.20-5.40); Red Cell Distribution Width 13.1 % (11.0-15.0); White Blood Count 18.2 10^3/uL (4.0-11.0)
[2024-03-18 20:48] LABS: Anion Gap 18.8; BUN Creatinine Ratio 31.3; Calcium 10.3 mg/dL (8.5-10.1); Carbon Dioxide 24.9 mmol/L (21.0-32.0); Chloride 95 mmol/L (98-107); Estimated GFR (African America >60 (>=60); Estimated GFR (Non-African Ame >60 (>=60); Glucose 95 mg/dL (74-106); Sodium 136 mmol/L (136-145)
[2024-03-18 20:49] LABS: Potassium 2.7 mmol/L (3.5-5.1)
== END 2024-03-18 21:15 | disposition home or self-care (01) ==
PROVIDERS: Emergency Provider Internal Medicine; PCP Nurse Practitioner Family
DX: E87.6 Hypokalemia (principal); R11.2 Nausea with vomiting, unspecified; G90.A Postural orthostatic tachycardia syndrome [POTS]; F31.9 Bipolar disorder, unspecified; Z79.899 Other long term (current) drug therapy; Z90.49 Acquired absence of other specified parts of digestive tract; F17.210 Nicotine dependence, cigarettes, uncomplicated; F12.90 Cannabis use, unspecified, uncomplicated
CPT/HCPCS: 36415; 80048; 85025; 99283

== ENCOUNTER 2024-07-19 10:50 | Emergency (ER) | payer OTHER, SELFPAY ==
[2024-07-19 10:54] VITALS: BP 118/97; PULSE 689; TEMP 36.8; O2SAT 100; BMI 35.4
[2024-07-19] MEDS: DIPHENHYDRAMINE HCL 50 MG/ML VIAL 25 MG IV (11:40)
[2024-07-19] MEDS: KETOROLAC TROMETHAMINE 30 MG/ML VIAL IVP (11:41)
[2024-07-19] MEDS: METHYLPREDNISOLONE SOD SUCC PF 125 MG/2 ML VIAL IVP (11:41)
--- NOTE | 2024-07-19 11:46 | ED_ITS ---
HPI HPI - General Adult General Chief complaint: Nausea/Vomiting/Diarrhea Stated complaint: VOMITING, HEADACHE, NAUSEA Time Seen by Provider: 07/19/24 10:54 Source: patient Mode of arrival: walk-in Limitations: no limitations History of Present Illness HPI narrative: 19-year-old female presents for headache. Its on the right side of her head, mostly behind her right eye. No trauma fever or stiff neck. It is made her nauseous. No fever or stiff neck or localized weakness. It was not of sudden onset. The pain is moderate to severe. Related Data Home Medications ?Medication ?Instructions ?Recorded ?Confirmed methocarbamol 500 mg tablet 500 mg PO TID 03/18/24 03/18/24 naproxen 500 mg tablet 500 mg PO BID PRN pain 03/18/24 03/18/24 ondansetron 4 mg disintegrating 4 mg translingual Q8H 07/19/24 07/19/24 tablet Previous Rx's ?Medication ?Instructions ?Recorded promethazine 25 mg rectal [address] Q6H PRN nausea and 03/13/24 suppository vomiting #12 ea promethazine 25 mg tablet 25 mg PO Q6H PRN nausea and 03/13/24 vomiting #20 tabs upajqfittf-djcdfhoaaqndc-qjphmtwm 1 cap PO Q6H PRN pain 5 days #20 07/19/24 50 mg-300 mg-40 mg capsule caps (Fioricet) Allergies Allergy/AdvReac Type Severity Reaction Status Date / Time haloperidol [From Haldol] Allergy Severe icthy Verified 07/19/24 10:58 metoclopramide [From Reglan] AdvReac Intermediate facial Verified 01/05/24 11:56 drooping Opioid HPI Opioid Management Most Recent Opioid Data: Last Pain Scale 6 07/19/24 11:41 Last MAR Pain Assessment 07/19/24 11:41 Ur Phencyclidine Scrn Negative (NEGATIVE) 09/05/23 21:10 Review of Systems ROS Narrative A ten point review of systems is negative except as noted above. [facility] Medical History (Updated 07/19/24 @ 13:13 by Juan C Hernandez MD) Leukocytosis ?D72.829 - Elevated white blood cell count, unspecified (ICD-10) Bipolar 1 disorder ?F31.9 - Bipolar disorder, unspecified (ICD-10) Migraine ?G43.909 - Migraine, unspecified, not intractable, without status migrainosus (ICD-10) POTS (postural orthostatic tachycardia syndrome) ?G90.A - Postural orthostatic tachycardia syndrome [POTS] (ICD-10) Cyclic vomiting syndrome ?R11.15 - Cyclical vomiting syndrome unrelated to migraine (ICD-10) Cyclic vomiting syndrome ?R11.15 - Cyclical vomiting syndrome unrelated to migraine (ICD-10) Fall ?W19.XXXA - Unspecified fall, initial encounter (ICD-10) Fracture of tibial plateau ?S82.143A - Displaced bicondylar fracture of unspecified tibia, initial encounter for closed fracture (ICD-10) Surgical History History of appendectomy ?Z90.49 - Acquired absence of other specified parts of digestive tract (ICD- 10) Family History Father Family history of stroke Family history of diabetes mellitus Family history of cancer Family history of hypertension Family history of CHF (congestive heart failure) Grandfather Family history of stroke Grandmother Family history of myocardial infarction Mother Family history of diabetes mellitus Family history of cancer Social History Within the past year, how often did you have a drink containing alcohol: never Score interpretation: A score less than 3 is consistent with normal alcohol consumption. Smoking status: Current every day smoker Non-prescribed substance use: cannabis (any form) Do you think of yourself as: straight/heterosexual Gender Identity: female Exam Narrative Exam Narrative: Nurses note and vital signs reviewed and patient is not hypoxic. General: The patient appears in no apparent distress. Patient is resting comfortably on cart. Skin: Warm, dry, no pallor noted. There is no rash noted. Head: Normocephalic, atraumatic, neck supple without nuchal rigidity Eye: Normal conjunctiva, no drainage, EOMI. PERRL Ears, Nose, Mouth, and Throat: oral mucosa is moist. Nares patent. Cardiovascular: Regular Rate and Rhythm Respiratory: Patient is in no distress, no accessory muscle use, lungs are clear to auscultation, no wheezing, rales or rhonchi Back: non-tender GI: Soft and nontender Musculoskeletal: The patient has no evidence of calf tenderness, no pitting edema, symmetrical pulses noted bilaterally Neurological: Awake and alert, moves all 4 extremities well Psychiatric: Cooperative Constitutional Vital Signs, click to edit/add: Last Vital Signs Temp 98.2 F 07/19/24 10:54 Pulse 57 L 07/19/24 12:33 Resp 18 07/19/24 12:33 BP 125/74 07/19/24 12:33 Pulse Ox 98 07/19/24 12:33 O2 Del Method Room Air 07/19/24 10:54 Course Vital Signs Vital signs: Vital Signs Temperature 98.2 F 07/19/24 10:54 Pulse Rate 689 H 07/19/24 10:54 Respiratory Rate 20 07/19/24 10:54 Blood Pressure 118/97 H 07/19/24 10:54 Pulse Oximetry 100 07/19/24 10:54 Oxygen Delivery Method Room Air 07/19/24 10:54 Temperature 98.2 F 07/19/24 10:54 Pulse Rate 57 L 07/19/24 12:33 Respiratory Rate 18 07/19/24 12:33 Blood Pressure 125/74 07/19/24 12:33 Pulse Oximetry 98 07/19/24 12:33 Oxygen Delivery Method Room Air 07/19/24 10:54 Medical Decision Making MDM Narrative Medical decision making narrative: She was given IV Toradol, Solu-Medrol, Benadryl, and Zofran as well as IV fluids and she feels much better now and is able to be discharged home. Treatment diagnosis and follow-up were discussed with the patient Differential Diagnosis Differential Diagnosis: Headache, dehydration, viral illness Discharge Plan Discharge Stand Alone Forms: Work/School Release, Portal Instructions Chief Complaint: Nausea/Vomiting/Diarrhea Clinical Impression: Headache Patient Disposition: Home, Self-Care Time of Disposition Decision: 13:13 Condition: Good Mode of Transportation: Private Vehicle Prescriptions / Home Meds: New gcuulkdhey-fycjfazorhqtx-zjsx [Fioricet] 50-300-40 mg capsule 1 cap PO Q6H PRN (Reason: pain) 5 Days Qty: 20 0RF No Action ondansetron 4 mg tablet,disintegrating 4 mg translingual Q8H promethazine 25 mg tablet 25 mg PO Q6H PRN (Reason: nausea and vomiting) Qty: 20 0RF promethazine 25 mg suppository [address] Q6H PRN (Reason: nausea and vomiting) Qty: 12 0RF methocarbamol 500 mg tablet 500 mg PO TID naproxen 500 mg tablet 500 mg PO BID PRN (Reason: pain) Print Language: [place] Instructions: Acute Headache (ED) Referrals: Modesta Chand, DATA ENTRY [Primary Care Provider] - 1 week
[2024-07-19 12:12] VITALS: BP 98/63; PULSE 46; O2SAT 98
[2024-07-19] MEDS: ONDANSETRON PF 4 MG/2 ML VIAL IV (12:30)
[2024-07-19 12:33] VITALS: BP 125/74; PULSE 57; O2SAT 98
== END 2024-07-19 13:32 | disposition home or self-care (01) ==
PROVIDERS: Emergency Provider Emergency Medicine; PCP Nurse Practitioner Family
DX: R51.9 Headache, unspecified (principal); F17.200 Nicotine dependence, unspecified, uncomplicated; R11.2 Nausea with vomiting, unspecified; R19.7 Diarrhea, unspecified
CPT/HCPCS: 96374; 96375; 99284; J1200; J1885; J2405; J2919

== ENCOUNTER 2024-07-30 11:14 | Emergency (ER) | payer OTHER, SELFPAY ==
[2024-07-30 11:18] VITALS: BP 165/101; PULSE 71; TEMP 36.7; O2SAT 100; BMI 27.4
[2024-07-30 11:20] VITALS: O2SAT 100
[2024-07-30 11:22] VITALS: O2SAT 98
--- OUTSIDE RECORDS SUMMARY | 2024-07-30 11:24 | XMS_ITS | CCD ---
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 structures] Onset: 4 Chronic Other skin disorders (4 sources) Follicular disorder, unspecified; Translations: [FOLLICULAR DISORDER UNSPECIFIED] Onset: 3 Episodic Other upper respiratory disease (20 sources) Bleeding from nose; Translations: [Epistaxis] 06-06-2019 Episodic Other upper respiratory infections (20 sources) Upper respiratory infection; Translations: [Acute upper respiratory infection, unspecified] 12-21-2017 Episodic Otitis media and related conditions (20 sources) Otitis media; Translations: [Otitis media, unspecified, unspecified ear] 01-07-2020 Episodic Ovarian cyst (20 sources) Cyst of ovary; Translations: [Unspecified ovarian cyst, unspecified side] 03-22-2018 Episodic Pleurisy; pneumothorax; pulmonary collapse (1 source) Interstitial emphysema of lung; Translations: [Interstitial emphysema] Onset: 4 Episodic Poisoning by other medications and drugs (20 sources) Poisoning by unspecified drugs, medicaments and biological substances, accidental (unintentional), initial encounter; Translations: [Overdose in pediatric patient] 06-22-2018 Episodic Residual codes; unclassified (20 sources) Left against medical advice; Translations: [Procedure [...] [Cannabis abuse with other cannabis-induced disorder] Onset: 3 08-22-2022 Chronic Suicide and intentional self-inflicted injury (20 sources) Suicidal thoughts; Translations: [Suicidal ideations] 06-22-2018 [...] / K92.0(ICD-10) Onset: 7 Unclassified (1 source) USP (current) use of non-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-inflam (NSAID) / [...] initial encounter for closed fracture] Onset: 3 Urinary tract infections (20 sources) Urinary tract infectious disease; Translations: [Urinary tract infection, site not specified] 12-23-2017 Episodic Viral infection (20 sources) Viral disease; Translations: [Viral infection, unspecified] 08-17-2018 Episodic Past or Other Problems Problem Classification Problem Date Documented Da te Episodic/Chronic Nonspecific chest pain (11 sources) Chest pain; Translations: [Chest pain, unspecified] Onset: 07-31-2023 01-06-2023 Episodic Spondylosis; intervertebral disc disorders; other back problems (1 source) Dorsalgia, unspecified; Translations: [Dorsalgia, unspecified] Onset: 08-25-2017 Episodic Unclassified (1 source) Vomiting, unspecified; Translations: [Vomiting, unspecified] Onset: 08-25-2017 Unclassified (1 source) Tachycardia, unspecified; Translations: [Tachycardia, unspecified] Onset: 08-25-2017 Results Test Name Value Interpretation Reference Range Facility Complete Blood Count Auto Di ffon 03-19-2024 Basophils (Bld) [#/Vol] 0.1 10*3/uL Normal 0.0-0.2 [facility] Comment on above: Result Comment: PERF ORMED BY: [place] [address] PATHOLOGIST DIRECTOR OF EVENT MANAGEMENT NAY SARKAR M.D. Performed By: #### C BC, CMP, HCGQUAL #### [address] Basophils/100 WBC (Bld) 0.4 % Normal . [facility] Comment on above: Performed By: #### C BC, CMP, HCGQUAL #### [address] Eosinophils (Bld) [#/Vol] 0.4 10*3/uL Normal 0.0-0.45 [facility] Comment on above: Performed By: #### C BC, CMP, HCGQUAL #### [address] Eosinophils/100 WBC (Bld) 2.3 % Normal . [facility] Comment on above: Performed By: #### C BC, CMP, HCGQUAL #### [address] Erythrocyte distribution width (RBC) [Ratio] 14.3 % Normal 11.9-15.3 [facility] Comment on above: Performed By: #### C BC, CMP, HCGQUAL #### [address] Hematocrit (Bld) [Volume fraction] 48.2 % High 34.0-46.4 [facility] Comment on above: Performed By: #### C BC, CMP, HCGQUAL #### [address] Hemoglobin (Bld) [Mass/Vol] 16.3 g/dL High 11.8-15.4 [facility] Comment on above: Performed By: #### C BC, CMP, HCGQUAL #### [address] Lymphocytes (Bld) [#/Vol] 3.9 10*3/uL Normal 1.00-4.8 [facility] Comment on above: Performed By: #### C BC, CMP, HCGQUAL #### [address] Lymphocytes/100 WBC (Bld) 20.9 % Normal . [facility] Comment on above: Performed By: #### C BC, CMP, HCGQUAL #### [address] MCH (RBC) [Entitic mass] 28.2 pg Normal 24.7-34.3 [facility] Comment on above: Performed By: #### C BC, CMP, HCGQUAL #### [address] MCV (RBC) [Entitic vol] 83.2 fL Normal 80-100 [facility] Comment on above: Performed By: #### C BC, CMP, HCGQUAL #### [address] Mean Corpuscular HGB Conc 33.9 g/dL Normal 32.0-35.0 [facility] Comment on above: Performed By: #### C BC, CMP, HCGQUAL #### [address] Monocytes (Bld) [#/Vol] 1.4 10*3/uL High 0.0-0.8 [facility] Comment on above: Performed By: #### C BC, CMP, HCGQUAL #### [address] Monocytes/100 WBC (Bld) 16.34 % Normal 0.00-20.00 [facility] Comment on above: Performed By: #### C BC, CMP, HCGQUAL #### [facility] [address] [place] [address] [place] Monocytes/100 WBC (Bld) 7.6 % Normal . [facility] Comment on above: Performed By: #### C BC, CMP, HCGQUAL #### [facility] [address] [place] [address] [place] Neutrophils (Bld) [#/Vol] 12.7 10*3/uL High 1.8-7.7 [facility] Comment on above: Performed By: #### C BC, CMP, HCGQUAL #### [place] [address] [place] Neutrophils/100 WBC (Bld) 68.8 % Normal . [facility] Comment on above: Performed By: #### C BC, CMP, HCGQUAL #### [address] NRBC% 0.1 /100{WBC} Normal 0-0.5 [facility] Comment on above: Performed By: #### C BC, CMP, HCGQUAL #### [facility] [address] [place] [address] [place] Platelet mean volume (Bld) [Entitic vol] 8.5 fL Normal 6.3-10.7 [facility] Comment on above: Performed By: #### C BC, CMP, HCGQUAL #### [facility] [address] [place] [address] [place] Platelets (Bld) [#/Vol] 358 10*3/uL Normal 150-450 [facility] Comment on above: Performed By: #### C BC, CMP, HCGQUAL #### [place] [address] [place] RBC (Bld) [#/Vol] 5.79 10*6/uL High 3.60-5.00 [facility] Comment on above: Performed By: #### C BC, CMP, HCGQUAL #### [facility] [address] [place] [address] [place] WBC (Bld) [#/Vol] 18.5 10*3/uL High 3.8-11.6 [facility] Comment on above: Performed By: #### C BC, CMP, HCGQUAL #### [address] Comprehensive Metabolic Pane tushar 03-19-2024 Albumin [Mass/Vol] 5.3 g/dL Normal 3.5-5.7 [facility] Comment on above: Performed By: #### C BC, CMP, HCGQUAL #### [address] Albumin/Globulin [Mass ratio] 1.9 {ratio} Normal [facility] Comment on above: Performed By: #### C BC, CMP, HCGQUAL #### [address] ALP [Catalytic activity/Vol] 82 U/L Normal 34-104 [facility] Comment on above: Performed By: #### C BC, CMP, HCGQUAL #### [address] ALT [Catalytic activity/Vol] 25 U/L Normal 7-52 [facility] Comment on above: Performed By: #### C BC, CMP, HCGQUAL #### [address] Anion gap [Moles/Vol] Not performed Normal 6.0-15.0 [facility] Comment on above: Performed By: #### C BC, CMP, HCGQUAL #### [address] AST [Catalytic activity/Vol] 23 U/L Normal 13-39 [facility] Comment on above: Performed By: #### C BC, CMP, HCGQUAL #### [address] Bilirubin [Mass/Vol] 0.9 mg/dL Normal 0.3-1.0 [facility] Comment on above: Performed By: #### C BC, CMP, HCGQUAL #### [address] Calcium [Mass/Vol] 10.4 mg/dL High 8.6-10.3 [facility] Comment on above: Performed By: #### C BC, CMP, HCGQUAL #### [address] Chloride [Moles/Vol] 94 mmol/L Low 98-107 [facility] Comment on above: Performed By: #### C BC, CMP, HCGQUAL #### [address] CO2 [Moles/Vol] 18.4 mmol/L Low 21.0-31.0 [facility] Comment on above: Performed By: #### C BC, CMP, HCGQUAL #### [address] Creatinine [Mass/Vol] 0.80 mg/dL Normal 0.60-1.20 [facility] Comment on above: Performed By: #### C BC, CMP, HCGQUAL #### [address] Creatinine Clr Calc Pharmacy 120.98 Normal [facility] Comment on above: Performed By: #### C BC, CMP, HCGQUAL #### [address] GFR/1.73 sq M.predicted MDRD (S/P/Bld) [Vol rate/Area] mL/min/{1.73_m2} Normal [facility] Comment on above: Performed By: #### C BC, CMP, HCGQUAL #### [address] Globulin (S) [Mass/Vol] 2.8 g/dL Normal [facility] Comment on above: Performed By: #### C BC, CMP, HCGQUAL #### [address] Glucose [Mass/Vol] 95 mg/dL Normal 70-100 [facility] Comment on above: Result Comment: [place] Glucose Reference Range is dependent on time and content of last meal. Glucose of more than 200 mg/dL in a nonstressed, ambulatory subject supports the diagnosis of Diabetes Mellitus. ADA recommended reference range Performed By: #### C BC, CMP, HCGQUAL #### [address] Potassium Normal 3.5-5.1 [facility] Comment on above: Result Comment: Spec imen hemolyzed, redraw requested Results called at 2349 on 03/18/24 Performed By: #### C BC, CMP, HCGQUAL #### [address] Protein [Mass/Vol] 8.1 g/dL Normal 6.4-8.9 [facility] Comment on above: Performed By: #### C BC, CMP, HCGQUAL #### [address] Sodium [Moles/Vol] 134 mmol/L Low 136-145 [facility] Comment on above: Performed By: #### C BC, CMP, HCGQUAL #### [address] Urea nitrogen [Mass/Vol] 27 mg/dL High 7-25 [facility] Comment on above: Performed By: #### C BC, CMP, HCGQUAL #### [address] ECG 12 lead ECGon 03-19-2024 ECG 12 lead ECG [facility] [place] [address] [place] [address] Electrocardiograph Report Signed Patient: Pili Parikh MR#: [id number] : 2005 Acct:[id number] Age/Sex: 19 / F ADM Date: 03/18/24 Loc: ER Room: Type: [facility] ER Attending Dr: Ordering Provider: Jacinto Benitez MD Date of Service: 03/18/24 ECG/ECG 12 lead ECG: Chest Pain Copies to: Test Reason : Blood Pressure : / mmHG Vent. Rate : 124 BPM Atrial Rate : 124 BPM P-R Int : 126 ms QRS Dur : 072 ms QT Int : 308 ms P-R-T Axes : 044 051 013 degrees QTc Int : 442 ms Sinus tachycardia Cannot rule out Anterior infarct , age undetermined Abnormal ECG When compared with ECG of 31-JUL-2023 18:07, Vent. rate has increased BY 52 BPM Confirmed by JACINTO BENITEZ MD ([id number]) on 03/19/2024 1:05:23 AM Referred By: Electronically Signed By:JACINTO BENITEZ MD Transcribed By: MUS Signed By Jacinto Benitez MD 03/19/24 0105 Normal [facility] HCG,Qualitative Serumon 02-27 HCG,Qualitative Serum Negative Normal [facility] Comment on above: Result Comment: PERF ORMED BY: [place] [address] PATHOLOGIST DIRECTOR OF EVENT MANAGEMENT NAY SARKAR M.D. Performed By: #### C BC, CMP, HCGQUAL #### [address] Alanine aminotransferase [En zymatic activity/volume] in Serum or PlasmaOrdered By: Jacinto Benitez on 03-18-2024 ALT [Catalytic activity/Vol] 25 U/L 7-52 [facility] Albumin [Mass/volume] in Ser um or Plasma by Bromocresol green (BCG) dye binding methoOrdered By: Jacinto Benitez on 03-18-2024 Albumin BCG dye [Mass/Vol] 5.3 g/dL 3.5-5.7 [facility] Alkaline phosphatase [Enzyma tic activity/volume] in Serum or PlasmaOrdered By: Jacinto Benitez on 03-18-2024 ALP [Catalytic activity/Vol] 82 U/L 34-104 [facility] Aspartate aminotransferase [ Enzymatic activity/volume] in Serum or PlasmaOrdered By: Jacinto Benitez on 03-18-2024 AST [Catalytic activity/Vol] 23 U/L 13-39 [facility] Basophils Auto (Bld) [#/Vol] Ordered By: Jacinto Benitez on 03-18-2024 Basophils (Bld) [#/Vol] 0.1 10*3/uL 0.0-0.2 [facility] Basophils/100 WBC Auto (Bld) Ordered By: Jacinto Benitez on 03-18-2024 Basophils/100 WBC (Bld) 0.4 % . [facility] Bilirubin.total [Mass/volume ] in Serum or PlasmaOrdered By: Jacinto Benitez on 03-18-2024 Bilirubin [Mass/Vol] 0.9 mg/dL 0.3-1.0 [facility] Calcium [Mass/volume] in Ser um or PlasmaOrdered By: Jacinto Benitez on 03-18-2024 Calcium [Mass/Vol] 10.4 mg/dL 8.6-10.3 [facility] Carbon dioxide, total [Moles /volume] in Serum or PlasmaOrdered By: Jacinto Benitez on 03-18-2024 CO2 [Moles/Vol] 18.4 mmol/L 21.0-31.0 [facility] Chloride [Moles/volume] in [place] or PlasmaOrdered By: Jacinto Benitez on 03-18-2024 Chloride [Moles/Vol] 94 mmol/L 98-107 [facility] Choriogonadotropin.beta subu nit [Units/volume] in Serum or PlasmaOrdered By: Jacinto Benitez on 03-18-2024 HCG.beta subunit Qn Negative [facility] Creatinine [Mass/volume] in Serum or PlasmaOrdered By: Jacinto Benitez on 03-18-2024 Creatinine [Mass/Vol] 0.80 mg/dL 0.60-1.20 [facility] Eosinophils Auto (Bld) [#/Vo l]Ordered By: Jacinto Benitez on 03-18-2024 Eosinophils (Bld) [#/Vol] 0.4 10*3/uL 0.0-0.45 [facility] Eosinophils/100 WBC Auto (Bl d)Ordered By: Jacinto Benitez on 03-18-2024 Eosinophils/100 WBC (Bld) 2.3 % . [facility] Erythrocyte distribution wid th Auto (RBC) [Ratio]Ordered By: Jacinto Benitez on 03-18-2024 Erythrocyte distribution width (RBC) [Ratio] 14.3 % 11.9-15.3 [facility] Globulin Calc (S) [Mass/Vol] Ordered By: Jacinto Benitez on 03-18-2024 Globulin (S) [Mass/Vol] 2.8 g/dL [facility] Glucose [Mass/volume] in Ser um or PlasmaOrdered By: Jacinto Benitez on 03-18-2024 Glucose [Mass/Vol] 95 mg/dL 70-100 [facility] Comment on above: ADA recommended refe rence rangeRandom Glucose Reference Range is dependent on time and content of last meal. Glucose of more than 200 mg/dL in a nonstressed, ambulatory subject supports the diagnosis of Diabetes Mellitus. Hematocrit Auto (Bld) [Volum e fraction]Ordered By: Jacinto Benitez on 03-18-2024 Hematocrit (Bld) [Volume fraction] 48.2 % 34.0-46.4 [facility] Hemoglobin [Mass/volume] in BloodOrdered By: Jacinto Benitez on 03-18-2024 Hemoglobin (Bld) [Mass/Vol] 16.3 g/dL 11.8-15.4 [facility] Leukocytes [#/volume] correc venkata for nucleated erythrocytes in Blood by Automated counOrdered By: Jacinto Benitez on 03-18-2024 WBC corrected for nucl RBC Auto (Bld) [#/Vol] 18.5 10*3/uL 3.8-11.6 [facility] Lymphocytes Auto (Bld) [#/Vo l]Ordered By: Jacinto Benitez on 03-18-2024 Lymphocytes (Bld) [#/Vol] 3.9 10*3/uL 1.00-4.8 [facility] Lymphocytes/100 WBC Auto (Bl d)Ordered By: Jacinto Benitez on 03-18-2024 Lymphocytes/100 WBC (Bld) 20.9 % . [facility] MCH Auto (RBC) [Entitic mass ]Ordered By: Jacinto Benitez on 03-18-2024 MCH (RBC) [Entitic mass] 28.2 pg 24.7-34.3 [facility] MCHC Auto (RBC) [Mass/Vol]Or dered By: Jacinto Benitez on 03-18-2024 MCHC (RBC) [Mass/Vol] 33.9 g/dL 32.0-35.0 [facility] MCV Auto (RBC) [Entitic vol] Ordered By: Jacinto Benitez on 03-18-2024 MCV (RBC) [Entitic vol] 83.2 fL 80-100 [facility] Monocyte distribution width [Entitic volume] in Blood by AutomatedOrdered By: Jacinto Benitez on 03-18-2024 Monocyte distribution width Auto (Bld) [Entitic vol] 16.34 % 0.00-20.00 [facility] Monocytes Auto (Bld) [#/Vol] Ordered By: Jacinto Benitez on 03-18-2024 Monocytes (Bld) [#/Vol] 1.4 10*3/uL 0.0-0.8 [facility] Monocytes/100 WBC Auto (Bld) Ordered By: Jacinto Benitez on 03-18-2024 Monocytes/100 WBC (Bld) 7.6 % . [facility] Neutrophils Auto (Bld) [#/Vo l]Ordered By: Jacinto Benitez on 03-18-2024 Neutrophils (Bld) [#/Vol] 12.7 10*3/uL 1.8-7.7 [facility] Neutrophils/100 WBC Auto (Bl d)Ordered By: Jacinto Benitez on 03-18-2024 Neutrophils/100 WBC (Bld) 68.8 % . [facility] No Panel InformationOrdered By: Jacinto Benitez on 03-18-2024 Estimated GFR (CKD-EPI) > 60.0 mL/Min [facility] Pharmacy Creatinine Clearance (Chem 120.98 [facility] Nucleated erythrocytes [Pres ence] in Blood by Automated countOrdered By: Jacinto Benitez on 03-18-2024 Nucleated RBC Auto Ql (Bld) 0.1 /100{WBC} 0-0.5 [facility] Platelet mean volume Auto (B ld) [Entitic vol]Ordered By: Jacinto Benitez on 03-18-2024 Platelet mean volume (Bld) [Entitic vol] 8.5 fL 6.3-10.7 [facility] Platelets Auto (Bld) [#/Vol] Ordered By: Jacinto Benitez on 03-18-2024 Platelets (Bld) [#/Vol] 358 10*3/uL 150-450 [facility] Potassium [Moles/volume] in Serum or PlasmaOrdered By: Jacinto Benitez on 03-18-2024 Potassium [Moles/Vol] See comment 3.5-5.1 [facility] Comment on above: Specimen hemolyzed, redraw requestedResults calledat 2349 on 03/18/24 Protein [Mass/volume] in Ser um or PlasmaOrdered By: Jacinto Benitez on 03-18-2024 Protein [Mass/Vol] 8.1 g/dL 6.4-8.9 [facility] RBC Auto (Bld) [#/Vol]Ordere d By: Jacinto Benitez on 03-18-2024 RBC (Bld) [#/Vol] 5.79 10*6/uL 3.60-5.00 [facility] Serum or plasma albumin/glob ulin mass ratioOrdered By: Jacinto Benitez on 03-18-2024 Albumin/Globulin [Mass ratio] 1.9 {ratio} [facility] Serum or plasma anion gap de terminationOrdered By: Jacinto Benitez on 03-18-2024 Anion gap [Moles/Vol] TNP [facility] Comment on above: Test not performed Sodium [Moles/volume] in Ser um or PlasmaOrdered By: Jacinto Benitez on 03-18-2024 Sodium [Moles/Vol] 134 mmol/L 136-145 [facility] Urea nitrogen [Mass/volume] in Serum or PlasmaOrdered By: Jacinto Benitez on 03-18-2024 Urea nitrogen [Mass/Vol] 27 mg/dL 7-25 [facility] WBC Auto (Bld) [#/Vol]Ordere d By: Jacinto Benitez on 03-18-2024 WBC (Bld) [#/Vol] 18.5 10*3/uL 3.8-11.6 [facility] CBC w/ Auto Diffon 4 Basophils/100 WBC (Bld) 0.4 % Normal 0.0-2.0 [facility] Comment on above: Performed By: #### 2 [id number], [id number], [id number], [id number] ####[facility] [id number] [place] [address] Basophils/Leukocytes Auto (Bld) [Pure # fraction] 0.1 E9/L Normal 0.0-0.2 [facility] Comment on above: Performed By: #### 2 337173, [id number], [id number], [id number] ####[facility] [id number] [place] [address] Eosinophils (Bld) [#/Vol] 0.0 E9/L Normal 0.0-0.5 [facility] Comment on above: Performed By: #### 2 312388, [id number], 5638340, 6279155 ####[address] [address] Eosinophils/100 WBC (Bld) 0.3 % Normal 0.0-8.0 [facility] Comment on above: Performed By: #### 2 248447, [id number], 5581111, 7589536 ####[address] [address] Erythrocyte distribution width (RBC) [Ratio] 14.1 % Normal 10.9-14.2 [facility] Comment on above: Performed By: #### 2 771106, [id number], 9439533, 4194572 ####[address] [address] Hematocrit (Bld) [Volume fraction] 44.0 % Normal 34.0-46.0 [facility] Comment on above: Performed By: #### 2 499869, [id number], 1962462, 2700499 ####[address] [address] Hemoglobin (Bld) [Mass/Vol] 14.4 g/dL Normal 12.0-16.0 [facility] Comment on above: Performed By: #### 2 900831, 87553699, 1074529, 0101336 ####[address] [address] Lymphocytes (Bld) [#/Vol] 2.2 E9/L Normal 1.0-4.0 [facility] Comment on above: Performed By: #### 2 366707, [id number], 6190822, 1134025 ####[address] [address] Lymphocytes/100 WBC (Bld) 15.8 % Normal 14.0-50.0 [facility] Comment on above: Performed By: #### 2 388327, 33418729, 4513639, 9966530 ####[address] [address] MCH (RBC) [Entitic mass] 27.8 pg Normal 27.0-34.0 [facility] Comment on above: Performed By: #### 2 388688, 58540192, 6925661, 4019279 ####[address] [address] MCHC (RBC) [Mass/Vol] 32.6 g/dL Normal 31.4-36.0 [facility] Comment on above: Performed By: #### 2 630774, [id number], 6707531, 0663886 ####[address] [address] MCV (RBC) [Entitic vol] 85.2 fL Normal 80.0-100.0 [facility] Comment on above: Performed By: #### 2 922524, 11203100, 4091227, 7208689 ####[address] [address] Monocytes (Bld) [#/Vol] 1.1 E9/L High 0.2-1.0 [facility] Comment on above: Performed By: #### 2 100152, 07972593, 0866951, 1424397 ####[address] [address] Neutrophils (Bld) [#/Vol] 10.6 E9/L High 2.0-7.5 [facility] Comment on above: Performed By: #### 2 012138, 54578928, 0412760, 3465490 ####[address] [address] Neutrophils/100 WBC (Bld) 75.9 % High 36.0-75.0 [facility] Comment on above: Performed By: #### 2 366930, 91626207, 2583253, 4844773 ####[address] [address] Platelet mean volume (Bld) [Entitic vol] 8.4 fL Normal 6.4-10.8 [facility] Comment on above: Performed By: #### 2 756883, 78740795, 4279543, 6134288 ####[facility] [id number] [place] [address] Platelets (Bld) [#/Vol] 276.0 E9/L Normal 150.0-500. 0 [facility] Comment on above: Performed By: #### 2 825100, 00525443, 7267602, 4004151 ####[facility] [id number] [place] [address] RBC (Bld) [#/Vol] 5.2 E12/L Normal 4.3-5.9 [facility] Comment on above: Performed By: #### 2 168134, 15847850, 5609763, 5106007 ####[facility] [id number] [place] [address] WBC corrected for nucl RBC Auto (Bld) [#/Vol] 14.0 E9/L High 4.0-11.0 [facility] Comment on above: Performed By: #### 2 841363, 28955545, 7001754, 8093381 ####[facility] [facility] [address] [place] [address] CHEMISTRYOrdered By: SYSTEM SYSTEM on 03-15-2024 Albumin [Mass/Vol] 5.0 g/dL [...] 03-15-2024 Chloride [Moles/Vol] 99 mmol/L Low 101-111 [facility] Comment on above: Performed By: #### 2 850806, 17966117, 1337271, 6776945 ####[facility] [address] [place] [address] Potassium [Moles/Vol] 3.3 mmol/L Low 3.5-5.3 [facility] Comment on above: Performed By: #### 2 208806, 16520727, 1732513, 8515610 ####[facility] [address] [place] [address] Sodium [Moles/Vol] 137 mmol/L Normal 135-145 [facility] Comment on above: Performed By: #### 2 499059, 32236320, 0393454, 3313130 ####[facility] [address] [place] [address] Anion gap [Moles/Vol] 22 mmol/L High 6-16 [facility] Comment on above: Performed By: #### 2 111275, 77234511, 0470484, 8296014 ####[facility] [address] [place] [address] CO2 [Moles/Vol] 19 mmol/L Low 21-31 [facility] Comment on above: Performed By: #### 2 374435, 24418418, 4320566, 3596853 ####[facility] [address] [place] [address] Albumin [Mass/Vol] 5.0 g/dL Normal 3.3-5.0 [facility] Comment on above: Performed By: #### 2 931342, 00949966, 5721064, 9802688 ####[address] [address] Albumin/Globulin (S) [Mass conc ratio] 1.8 Normal 1.1-2.2 [facility] Comment on above: Performed By: #### 2 272148, 67051454, 5578700, 6760236 ####[facility] [address] [place] [address] ALP [Catalytic activity/Vol] 69 Int._Unit/L Normal 21-98 [facility] Comment on above: Performed By: #### 2 802003, 56751670, 9902221, 8130934 ####[facility] [address] [place] [address] ALT No additional P-5'-P [Catalytic activity/Vol] 31 Int._Unit/L Normal 6-46 [facility] Comment on above: Performed By: #### 2 546223, 63419839, 0726243, 4472476 ####[facility] [address] [place] [address] AST [Catalytic activity/Vol] 19 Int._Unit/L Normal 5-43 [facility] Comment on above: Performed By: #### 2 361284, 78217458, 5066884, 3457391 ####[facility] [address] [place] [address] Bilirubin [Mass/Vol] 0.8 mg/dL Normal 0.0-1.1 [facility] Comment on above: Performed By: #### 2 765734, 89841313, 8312495, 1910658 ####[address] [address] Calcium [Mass/Vol] 10.4 mg/dL Normal 8.9-11.1 [facility] Comment on above: Performed By: #### 2 372062, 09770344, 2943410, 1534434 ####[facility] [address] [place] [address] Creatinine [Mass/Vol] 0.8 mg/dL Normal 0.5-1.3 [facility] Comment on above: Performed By: #### 2 248355, 04187756, 0340167, 8356824 ####[facility] [address] [place] [address] Globulin (S) [Mass/Vol] 2.8 g/dL Normal 1.4-4.0 [facility] Comment on above: Performed By: #### 2 389746, 10679545, 6012186, 0343529 ####[facility] [address] [place] [address] Glucose [Mass/Vol] 86 mg/dL Normal 55-199 [facility] Comment on above: Performed By: #### 2 167902, 27040553, 0526047, 9269947 ####[facility] [address] [place] [address] Protein [Mass/Vol] 7.8 g/dL Normal 6.0-7.8 [facility] Comment on above: Performed By: #### 2 882664, 13598088, 3763108, 1301743 ####[facility] [address] [place] [address] Urea nitrogen [Mass/Vol] 24 mg/dL High 5-21 [facility] Comment on above: Performed By: #### 2 562485, 38650349, 6953735, 3943648 ####[facility] [address] [place] [address] Urea nitrogen/Creatinine [Mass ratio] 30 No Units High 10-20 [facility] Comment on above: Performed By: #### 2 682330, 35328861, 4613541, 2812297 ####[facility] [address] [place] [address] CT Chest w/ Contraston 03-15 CT Chest [...] from 03/13/2024 identified. Report Ordering Provider: August Beck FINAL REPORT Dictated: 03/15/2024 11:52 am Anselmo Dolan MD Signed (Electronic Signature): 03/15/2024 11:52 am Signed by: Anselmo Dolan MD Transcribed by: KIRA Technologist: DIANA Technical Comments GFR (mL/min/1/73m2) na- age Contrast: Isovue 300 Contrast amount in ml's: 100 Normal [facility] Consent for Treatmenton 02-26 Consent for Treatment [id number]#1.00TIFF Normal [facility] Discharge Instructionson Discharge Instructions [id number]#1.00TIFF Normal [facility] ED Clinical Summaryon 2023 ED Clinical Summary (Inserted Image. Vesta ble to display) [place] [id number] ED Clinical Summary Person Information Name: PILI PARIKH/[facility] Age: 19 Years : 2005 Sex: Female Language: Greenlandic PCP: MODESTA ARCHIBALD Marital Status: Single Visit Id: Visit Reason: Vomiting; Nausea; Back pain; DR BECK CALLED TO COME BACK IN Speciality: Acuity: [...] 03/15/2024 13:49:40 03/15/2024 13:49:40 03/15/2024 13:49:40 ADDRESS: [address] [place] [id number] PHYS DOC NOTES: MEDICAL INFORMATION: Prescriptions Given: Medications to Continue with No Changes Other Medications acetaminophen-hydrocodone ([place] 325 mg-5 mg oral tablet) 1 Tablets [...] symptoms. DIAGNOSIS: 1:Nausea and vomiting; 2:Pneumomediastinum Normal [facility] ED Note-Physicianon 03-15-20 ED Note-Physician Basic Information Time Seen: August Beck M.D. 03/15/2024 10:35 Chief Complaint pt. states Dr. Beck called to come back for further evaluation. [...] and Complexity of Problems Differential Diagnosis: [] [facility] Data External documents reviewed: [] My [...] right. The case was discussed with Dr. Zach stokes who have reviewed the images himself and [...] Return to (more content not included)... Normal [facility] Comment on above: Result Comment: Elec tronically Signed By: August Beck M.D..tamika\Date and Time Signed: 03/15/24 16:57 EDT ED [...] added (diluted fruit juice). ? Eat bland, hauf-lh-oqolum foods in small amounts as you are able. These foods include bananas, applesauce, rice, lean meats, toast, and crackers. ? Avoid fluids that contain a lot of sugar or caffeine, such as energy drinks, sports drinks, and soda. ? Avoid alcohol. ? Avoid spicy or fatty foods. General instructions ? Take qxia-lbm-ofrnplu and prescription medicines only as told by your health care provider. ? Drink enough fluid to keep your urine pale yellow. ? Wash your hands often using soap and water for at least 20 seconds. If soap and water are not available, use hand internal communications specialist. ? Make sure that everyone in your [...] and drinking to prevent dehydration. ? Take ddkw-wod-whulbwr and prescription medicines only as told by [...] provider. Document Revised: 05/21/2022 Document Reviewed: 05/21/2022 Elsevier Patient Education ? 2022 [employer]. Radiology Pneumomediastinum Pneumomediastinum is the presence of [...] marijuana. Spontane (more content not included)... Normal [facility] ED Patient Summaryon 024 ED Patient Summary (Inserted Image. Vesta ble to display) [place] [address] Patient Discharge Instructions Person Information Name: PILI PARIKH Age: 19 Years Arrival Date: 03/15/2024 10:32:10 Discharge Diagnosis: 1:Nausea and vomiting; 2:Pneumomediastinum Primary Care Physician: MODESTA ARCHIBALD Provider Information Primary Provider: August Beck M.D. Advanced Asian Studies Professor:None The exam and treatment you received in the Emergency Department were for an urgent problem and are not intended as complete care. It is important that you follow up with a doctor, nurse practitioner, or physician?s assistant brand manager for ongoing care. If your symptoms become [...] opioids can be used to help relieve oxcuquse-sn-hzqyka pain and are often prescribed following a [...] be strugg (more content not included)... Normal [facility] HEMATOLOGYOrdered By: SYSTEM SYSTEM on 03-15-2024 [...] 03-15-2024 Magnesium [Mass/Vol] 2.2 mg/dL Normal 1.3-2.4 [facility] Comment on above: Performed By: #### 2 293776, 57615181, 9211466, 0489383 ####[facility] [address] [place] [address] eGFRon 03-15-2024 eGFR 108 mL/min/1.73 m2 Normal >=59 [facility] Comment on above: Order Comment: Order added by Discern Expert. Performed By: #### 2 990212, 45870817, 8153337, 2022646 ####[facility] [address] [place] [address] ABO/Rh History Checkon 03-14 ABO/Rh History Check Patient discharged prior Normal [facility] Comment on above: Performed By: #### 2 350159, 79399024, 35849155, 81324161 ####[facility] [address] [place] [address] CT Abdomen/Pelvis w/ Contras ton 03-14-2024 CT [...] 300 Contrast amount in ml's: 130 Normal [facility] CT Chest w/ Contraston 03-14 CT [...] 300 Contrast amount in ml's: 130 Normal [facility] CT Head or Brain w/o Contras [...] Ferrer M.D. Transcribed by: KIRA Technologist: RAVEN Normal [facility] CT Spine Cervical w/o Contra ston 03-14-2024 CT Spine Cervical w/o Contrast Exam [...] (Electronic Signature): 03/14/2024 8:01 am Signed by: Erick Ferrer M.D. Transcribed by: KIRA Technologist: RAVEN Normal [facility] Discharge Instructionson Discharge Instructions [id number]#1.00TIFF Normal [facility] ED Clinical Summaryon 2023 ED Clinical Summary (Inserted Image. Vesta ble to display) [place] [id number] ED Clinical Summary Person Information Name: PILI PARIKH/[facility] Age: 19 Years : 2005 Sex: Female Language: Greenlandic PCP: MODESTA ARCHIBALD Marital Status: Single Visit [...] 03/13/2024 22:27:59 03/13/2024 22:27:59 03/13/2024 22:27:59 ADDRESS: [facility] [facility] [id number] PHYS DOC NOTES: MEDICAL INFORMATION: Prescriptions Given: New Medications [id number], [address], [place] [id number], [phone] 200 [phone] 8963 acetaminophen-hydrocodone ([place] 325 mg-5 mg oral tablet) 1 Tablets [...] EDUCATION INFORMATION: Instructions: Nausea and Vomiting, Adult, Ouds-bz-Jela; Muscle Strain, Cnxt-ms-Grev Follow up: With: Address: When: [address] [place], [place] [phone] Business (1) In 3 days 03/16/2024 Comments: [...] Back strain; N&V (nausea and vomiting) Normal [facility] ED Note-Physicianon 03-14-20 ED Note-Physician Basic [...] which is reviewed by myself and Dr. eSrrano who agree that it does appear stable [...] EDT, STA (more content not included)... Normal [facility] Comment on above: Result Comment: Elec tronically Signed By: Gasper Lang PA-C\.br\Date and Time Signed: 03/13/24 18:45 EDT\.br\Electronically Co-Signed By: Isaak Francis DO\.br\Date and Time Co-Signed: 03/13/24 22:19 EDT\.br\Electronically Co-Signed By: Jacinto Roman DO\.br\Date and Time Co-Signed: 03/16/24 07:37 [...] ? Low-calorie sports drinks. ? Eat bland, vnda-xr-fdegtk foods in small amounts as you are able, such as: ? Bananas. ? Applesauce. ? Rice. ? Low-fat (lean) meats. ? [place]. ? Crackers. ? Avoid drinking fluids that have a lot of sugar or caffeine in them. This includes energy drinks, sports drinks, and soda. ? Avoid alcohol. ? Avoid spicy or fatty foods. General instructions ? Take jlbc-bjc-chvtahi and prescription medicines only as told by your doctor. ? Drink enough fluid to keep your pee (urine) pale yellow. ? Wash your hands often with soap and water for at least 20 seconds. If you cannot use soap and water, use hand internal communications specialist. ? Make sure that everyone in your [...] doctor about eating and drinking. ? Take fxmw-cxh-srdektj and prescription medicines only as told by your doctor. ? Contact your doctor if your symptoms get worse or you have new symptoms. ? Keep all follow-up visits. This information is not intended to replace advice given to you by your health care provider. Make sure you discuss any questions you have with your health care provider. Document Revised: 05/21/2022 Document Reviewed: 05/21/2022 [employer] Patient Education ? 2022 [employer] Orthopedics Muscle Strain A muscle strain, [...] your m (more content not included)... Normal [facility] ED Patient Summaryon 024 ED Patient Summary (Inserted Image. Vesta ble to display) [address] [address] Patient Discharge Instructions Person Information Name: PILI PARIKH Age: 19 Years Arrival Date: 03/13/2024 17:33:02 Discharge Diagnosis: 1:Fall down stairs; Abnormal CT scan, chest; Back strain; N&V (nausea and vomiting) Primary Care Physician: MODESTA ARCHIBALD Provider Information Primary Provider: Jacinto Roman DO Advanced Asian Studies Professor:Gasper Lang PA-C The exam and treatment you received in the Emergency Department were for an urgent problem and are not intended as complete care. It is important that you follow up with a doctor, nurse practitioner, or physician?s assistant brand manager for ongoing care. If your symptoms become [...] With: Address: When: MODESTA ARCHIBAL[address] [place], [place] [phone] Business (1) In 3 days 03/16/2024 Comments: [...] Patient Education Materials: Nausea and Vomiting, Adult, Kkde-lt-Pcnm; Muscle Strain, Ffxp-zo-Tsfh A MESSAGE TO ALL PATIENTS REGARDING OPIOIDS PRESCRIPTION OPIOIDS: WHAT YOU NEED TO KNOW Prescription opioids can be used to help relieve abmdhllf-xr-olueus pain and are often prescribed following a [...] them juan (more content not included)... Normal [facility] ED Traumaon 03-14-2024 ED Trauma [id number]#1.00TIFF [facility] EMS Documentationon 03-14-20 EMS Documentation Please click on link to see report [facility] Comment on above: Result Comment: Miss ing Attachment - total size limit for all attachments exceeded [email or web address] Can be viewed in source system Monitor Recordon 03-14-2024 Monitor Record [id number]#1.00TIFF [facility] Prescriptions/Work Noteson 0 03-14-2024 Prescriptions/Work Notes [id number]#1.00TIFF [facility] XR Chest 2 Viewson XR Chest 2 [...] KIRA Technologist: RAVEN Technical Comments Radiation Dose: Kar in mGy = na DAP = na Normal [facility] ABO/Rhon 03-13-2024 ABO/Rh Positive Invalid Interpretation Code [facility] Comment on above: Performed By: #### 2 744840, 97578277, 35375069, 58985248 ####[facility] [address] [place] [address] ABSCon 03-13-2024 ABSC Gel Interp Negative Normal [facility] Comment on above: Performed By: #### 2 834092, 58412874, 70794251, 39351210 ####[facility] [address] [place] [address] B hCG Qualon 03-13-2024 Beta HCG ( test) Ql Negative Normal [facility] Comment on above: Performed By: #### 2 7757400, 4477598, 9707790, 9394447, 3579511, 51403700, 30835434, 8574171, 3265165 ####[facility] [address] [place] [address] BLOOD BANKOrdered By: Scarlet Lindquist on 03-13-2024 ABO/Rh Interp Positive Invalid Interpretation Code [facility] BB Subsection ABSC Gel Interp Negative (03/13/24 6:53 PM) Normal [facility] BB Subsection BMPon 03-13-2024 Anion gap [Moles/Vol] 16 mmol/L Normal 05-13 [facility] Comment on above: Performed By: #### 2 2380742, 1989289, 0169947, 9855105, 8009934, 97154586, 42856839, 5459465, 4465573 ####[facility] [address] [place] [address] Calcium [Mass/Vol] 10.8 mg/dL Normal 8.9-11.1 [facility] Comment on above: Performed By: #### 2 0087397, 1318632, 4495783, 0814159, 5320651, 66529820, 53403852, 6230275, 6720512 ####[facility] [address] [place] [address] Chloride [Moles/Vol] 105 mmol/L Normal 101-111 [facility] Comment on above: Performed By: #### 2 0982163, 9672638, 8022527, 7810466, 9447170, 35077170, 49006297, 3504994, 4403037 ####[facility] [address] [place] [address] CO2 [Moles/Vol] 25 mmol/L Normal 21-31 [facility] Comment on above: Performed By: #### 2 7860107, 9718548, 7152402, 9180533, 9851220, 42631313, 92152592, 4011967, 4154313 ####[facility] [address] [place] [address] Creatinine [Mass/Vol] 0.9 mg/dL Normal 0.5-1.3 [facility] Comment on above: Performed By: #### 2 5325404, 4644199, 2120822, 7438355, 5730552, 23806368, 12786361, 6382433, 3242637 ####[facility] [address] [place] [address] Glucose [Mass/Vol] 100 mg/dL Normal 55-199 [facility] Comment on above: Performed By: #### 2 9511286, 1923626, 2746996, 6293298, 0062861, 94042663, 80547117, 6355972, 1517180 ####[facility] [address] [place] [address] Potassium [Moles/Vol] 3.3 mmol/L Low 3.5-5.3 [facility] Comment on above: Performed By: #### 2 8580001, 3802729, 1397540, 3897440, 1900201, 55374160, 79486568, 5181419, 7504375 ####[facility] [address] [place] [address] Sodium [Moles/Vol] 143 mmol/L Normal 135-145 [facility] Comment on above: Performed By: #### 2 8281723, 3990189, 6267112, 8748845, 8287142, 80825229, 49613025, 1985088, 7111589 ####[facility] [address] [place] [address] Urea nitrogen [Mass/Vol] 24 mg/dL High 5-21 [facility] Comment on above: Performed By: #### 2 4731441, 3745639, 8565549, 9724420, 9275077, 65339130, 81209997, 9000999, 6918718 ####[facility] [address] [place] [address] Urea nitrogen/Creatinine [Mass ratio] 27 No Units High 10-20 [facility] Comment on above: Performed By: #### 2 3679013, 1766691, 1548958, 3490326, 7017626, 50020190, 40897427, 0595598, 5430469 ####[address] [address] Blood Bank ID#on 03-13-2024 BBID# [id number] Invalid Interpretation Code [facility] Comment on above: Performed By: #### 2 449227, 14613664, 97341142, 90010208 ####[address] [address] CBC w/ Auto Diffon 4 Basophils/100 WBC (Bld) 0.4 % Normal 0.0-2.0 [facility] Comment on above: Performed By: #### 2 4052271, 1562569, 4738201, 2484507, 1161640, 81298534, 03062602, 3093199, 8881394 ####[place] [address] [place] [address] Basophils/Leukocytes Auto (Bld) [Pure # fraction] 0.1 E9/L Normal 0.0-0.2 [facility] Comment on above: Performed By: #### 2 4864262, 3175052, 0053769, 0521697, 3627594, 87163353, 42858612, 6901912, 2547449 ####[address] [address] Eosinophils (Bld) [#/Vol] 0.0 E9/L Normal 0.0-0.5 [facility] Comment on above: Performed By: #### 2 5274589, 7600643, 1910537, 6534594, 3458811, 74803107, 47165812, 1881502, 6390188 ####[address] [address] Eosinophils/100 WBC (Bld) 0.1 % Normal 0.0-8.0 [facility] Comment on above: Performed By: #### 2 2614438, 7429124, 7900493, 6741733, 8590067, 79047296, 90676768, 1337718, 3197399 ####[place] [address] Erythrocyte distribution width (RBC) [Ratio] 14.4 % High 10.9-14.2 [facility] Comment on above: Performed By: #### 2 8566579, 9333417, 9665213, 1761937, 7657873, 94826271, 37060295, 9311395, 1522407 ####[address] [address] Hematocrit (Bld) [Volume fraction] 42.5 % Normal 34.0-46.0 [facility] Comment on above: Performed By: #### 2 9148141, 0768694, 8356999, 8338143, 0128551, 67399720, 68145760, 4273168, 0423269 ####[address] [address] Hemoglobin (Bld) [Mass/Vol] 14.0 g/dL Normal 12.0-16.0 [facility] Comment on above: Performed By: #### 2 3378141, 2175157, 9184639, 3863355, 1127593, 30248388, 97186355, 3199962, 2199335 ####[address] [address] Lymphocytes (Bld) [#/Vol] 2.3 E9/L Normal 1.0-4.0 [facility] Comment on above: Performed By: #### 2 1086853, 3617703, 7634544, 8020576, 7456038, 20223785, 28441639, 3991235, 0605180 ####[address] [address] Lymphocytes/100 WBC (Bld) 11.8 % Low 14.0-50.0 [facility] Comment on above: Performed By: #### 2 8756789, 7922943, 6912033, 3367597, 3656667, 86540498, 39984726, 7503261, 3897732 ####[address] [address] MCH (RBC) [Entitic mass] 27.6 pg Normal 27.0-34.0 [facility] Comment on above: Performed By: #### 2 1025841, 1179564, 6126642, 8231190, 3970756, 76980673, 03294769, 5928789, 2498745 ####[address] [address] MCHC (RBC) [Mass/Vol] 32.9 g/dL Normal 31.4-36.0 [facility] Comment on above: Performed By: #### 2 6525535, 1353839, 0023484, 1998804, 2949852, 77139312, 08390504, 3391761, 9499518 ####[address] [address] MCV (RBC) [Entitic vol] 83.8 fL Normal 80.0-100.0 [facility] Comment on above: Performed By: #### 2 8865070, 0906771, 9075626, 2877657, 2123692, 57292785, 70419185, 1325840, 7292292 ####[facility] [address] [place] [address] Monocytes (Bld) [#/Vol] 1.4 E9/L High 0.2-1.0 [facility] Comment on above: Performed By: #### 2 9156547, 1810500, 5559933, 5441018, 6877478, 28123435, 56224729, 0035281, 9461092 ####[address] [address] Neutrophils (Bld) [#/Vol] 15.5 E9/L High 2.0-7.5 [facility] Comment on above: Performed By: #### 2 3780906, 8376994, 5968390, 9853613, 2523579, 29495753, 86489271, 2593982, 1010157 ####[address] [address] Neutrophils/100 WBC (Bld) 80.6 % High 36.0-75.0 [facility] Comment on above: Performed By: #### 2 0149363, 4846075, 2214810, 9880630, 4845904, 92817100, 16671025, 5897309, [id number] ####[address] [address] Platelet mean volume (Bld) [Entitic vol] 8.4 fL Normal 6.4-10.8 [facility] Comment on above: Performed By: #### 2 [id number], 8255288, 0953638, 2137618, 9407519, 36790505, 46049738, 7386655, 7027456 ####[address] [address] Platelets (Bld) [#/Vol] 356.0 E9/L Normal 150.0-500. 0 [facility] Comment on above: Performed By: #### 2 3237522, 2833399, 4905441, 7636161, 5927715, 69162071, 56012019, 3779866, 8909332 ####[facility] [address] [place] [address] RBC (Bld) [#/Vol] 5.1 E12/L Normal 4.3-5.9 [facility] Comment on above: Performed By: #### 2 0013231, 7758118, 3805975, 1042859, 6412190, 42357538, 42811498, 9786630, 4186546 ####[facility] [address] [place] [address] WBC corrected for nucl RBC Auto (Bld) [#/Vol] 19.3 E9/L High 4.0-11.0 [facility] Comment on above: Result Comment: Slid e review performed Performed By: #### 2 3550218, 6794627, 9295342, 6298890, 7182196, 67813215, 24222757, 7546172, 5141100 ####[facility] [address] [place] [address] CHEMISTRYOrdered By: SYSTEM SYSTEM on 03-13-2024 Albumin [...] Sensitivity Troponin I Instructions For Use, [place], June 2018) Urea nitrogen [Mass/Vol] 24 mg/dL High 5 - 21 mg/dL Remisol Chem Urea nitrogen/Creatinine [Mass ratio] 27 mg/mg High 10 - 20 Remisol Chem COAGULATIONOrdered By: Jefe Mccain on 03-13-2024 aPTT Coag (PPP) [Time] 32.8 s Normal 25.1 - 36.5 second(s) [facility] Auto Coag Comment on above: Interpretive Data: [...] from a study by Az Mary et alRossy prepared from 1437 samples obtained at 7 different centers using the same coagulation reagent and instrumentation as [facility]. Currently there are no coagulation studies available worldwide for children to 14 days, and no normal ranges. Heparin therapeutic range (represented by Anti-Factor Xa activity of 0.2 - 0.4 U/mL) corresponds to PTT of 56.6 - 109.0 sec. INR Coag (PPP) [Relative time] 1.11 {INR} Invalid Interpretation Code [facility] Auto Coag Comment on above: Interpretive Data: I NR results are specifically intended to assess patients stabilized on long-term Anticoagulation therapy suggested INR s Less Intensive Anticoagulation 2.0 3.0 Conventional Range 3.0 4.5 PT Coag (PPP) [Time] 12.4 s Normal 9.4 - 1 2.5 second(s) [facility] Auto Coag Comment on above: Interpretive Data: 1 5 days - 4 weeks 1 - 5 months 6 -11 months 1-5 years 6-10 years 11 -17 years Mean: 11.2 (9.5-12.6) Mean: 11.0 (9.7-12.8) Mean: 11.0 (9.8-13.0) Mean: 11.3 (9.9-13.4) Mean: 11.7 (10.0-14.6) Mean: 11.8 (10.0 - 14.1) Pediatric Reference ranges were obtained from a study by britt Youssef alRossy prepared from 1437 samples obtained at 7 different centers using the same coagulation reagent and instrumentation as [facility]. Currently there are no coagulation studies available worldwide for children to 14 days, and no normal ranges. Consent for Treatmenton 02-26 Consent for Treatment [id number]#[id number] Normal [facility] Ethanolon 03-13-2024 Ethanol Lvl <10 Normal <=11 [facility] Comment on above: Performed By: #### 2 [id number] ####[facility] [address] [place] [address] HEMATOLOGYOrdered By: SYSTEM SYSTEM on 03-13-2024 Basophils/100 [...] Result Comment: Slid e review performed Hep Func Panelon 03-13-2024 Albumin [Mass/Vol] 5.4 g/dL High 3.3-5.0 [facility] Comment on above: Performed By: #### 2 4257917, 4002058, 1787395, 5038769, 5738271, 78419931, 46029618, 9542612, 6351023 ####[facility] [address] [place] [address] Albumin/Globulin (S) [Mass conc ratio] 1.8 Normal 1.1-2.2 [facility] Comment on above: Performed By: #### 2 2120444, 5018271, 1271582, 2749459, 8930400, 69542492, 52995502, 4573977, 5134188 ####[facility] [address] [place] [address] ALP [Catalytic activity/Vol] 82 Int._Unit/L Normal 21-98 [facility] Comment on above: Performed By: #### 2 4744170, 3451027, 9393131, 0212165, 0630051, 04452420, 68021812, 7909528, 6816326 ####[place] 1655157 ALT No additional P-5'-P [Catalytic activity/Vol] 44 Int._Unit/L Normal 6-46 [facility] Comment on above: Performed By: #### 2 6160226, 2663822, 7863376, 0044471, 4088579, 62781509, 45515471, 9296719, 2809049 ####[place] 6[address]0157 AST [Catalytic activity/Vol] 23 Int._Unit/L Normal 5-43 [facility] Comment on above: Performed By: #### 2 7433211, 3985962, 1214019, 3376881, 2849498, 73364427, 86755719, 6386614, 9548302 ####[place] 6[address]0157 Bilirubin [Mass/Vol] 0.8 mg/dL Normal 0.0-1.1 [facility] Comment on above: Performed By: #### 2 4849218, 2669008, 6246798, 4870802, 1283759, 64715367, 41659471, 0867390, 5144481 ####[place] 6[address]0157 Bilirubin.direct [Mass/Vol] 0.2 mg/dL Normal 0.0-0.4 [facility] Comment on above: Performed By: #### 2 7363464, 8652474, 5397493, 2639559, 0928957, 68684493, 98358586, 4355671, 7757336 ####[place] 6[address]0157 Bilirubin.indirect [Mass or moles/Vol] 0.6 mg/dL Normal 0.1-0.9 [facility] Comment on above: Performed By: #### 2 9131496, 6796908, 1314169, 4077541, 5262067, 13761854, 89856298, 1497639, 4808891 ####[facility] [address] [place] [address] [place] [address] Globulin (S) [Mass/Vol] 3.0 g/dL Normal 1.4-4.0 [facility] Comment on above: Performed By: #### 2 8728205, 9891005, 2954191, 8604106, 1919396, 21379540, 55088088, 1806982, 8479435 ####[facility] [address] [place] [address] Protein [Mass/Vol] 8.4 g/dL High 6.0-7.8 [facility] Comment on above: Performed By: #### 2 0720749, 7787073, 0641300, 5410616, 4203670, 20548106, 36069064, 0464035, 8152059 ####[facility] [address] [place] [address] Lactic Acidon 03-13-2024 Lactic Acid Lvl 1.7 mmol/L Normal 0.5-2.2 [facility] Comment on above: Performed By: #### 2 1149848, 5302473, 8672532, 4657065, 5800007, 26248937, 60702247, 9021967, 1564492 ####[facility] [address] [place] [address] Lipase Levelon 03-13-2024 Lipase [Catalytic activity/Vol] 14 U/L Normal 13-58 [facility] Comment on above: Performed By: #### 2 5548127, 8724108, 5130843, 6020514, 9308751, 27185256, 85156907, 6196184, 6850131 ####[facility] [address] [place] [address] Monitor Recordon 03-13-2024 Monitor Record [id number]#[id number] Normal [facility] PT & PTTon 03-13-2024 aPTT Coag (PPP) [Time] 32.8 second(s) Normal 25.1-36.5 [facility] Comment on above: Result Comment: Para [...] the same coagulation reagent and instrumentation as [facility]. Currently there are no coagulation studies available worldwide for children to 14 days, and no normal ranges. Heparin therapeutic range (represented by Anti-Factor Xa activity of 0.2 - 0.4 U/mL) corresponds to PTT of 56.6 - 109.0 sec. Performed By: #### 2 9815067, 5600967, 7794484, 8121347, 9617755, 51485602, 23328066, 8021006, 1573581 ####[facility] [address] [facility] [place] [place] [address] INR Coag (PPP) [Relative time] 1.11 {INR} Invalid Interpretation Code [facility] Comment on above: Result Comment: INR results are specifically intended to assess patients stabilized on long-term Anticoagulation therapy suggested INR?s ?Less Intensive Anticoagulation? 2.0 ? 3.0 Conventional Range 3.0 ? 4.5 Performed By: #### 2 6503998, 1151347, 5092419, 4585571, 6346133, 06972635, 61481951, 4005873, 0417490 ####[facility] [address] [facility] [place] [place] [address] PT Coag (PPP) [Time] 12.4 second(s) Normal 9.4-12.5 [facility] Comment on above: Result Comment: 15 [...] the same coagulation reagent and instrumentation as [facility]. Currently there are no coagulation studies available worldwide for children to 14 days, and no normal ranges. Performed By: #### 2 3066502, 5087919, 0759316, 7399356, 6885513, 59127289, 90901277, 9537391, 7243830 ####[facility] [address] [place] [address] Pre-Arrival Noteon Pre-Arrival Note Pre-Arrival Summary Name: , [facility] Current Date: 03/13/2024 17:34:24 EDT Gender: Female Date of : Age: 19 Pre-Arrival Type: EMS ETA: 03/13/2024 17:59:00 EDT Primary Care Physician: Presenting Problem: fall down 10 stairs Pre-Arrival User: Payal Robison RN Referring Source: Location: Completion Date/Time: 03/13/2024 17:29:00 [facility] Emergency Department Pre-Hospital Report Form Vital Signs: 127/83; 66; 17; 96%; GCS 15 Pre-Hospital Report: Treatment in Route: C-COLLAR Response to Treatment: Misc. Issues: Normal [facility] RAD - Preliminary Cat Scan R eporton 03-13-2024 RAD - Preliminary Cat Scan Report [id number]#1.00TIFF Normal [facility] SEROLOGYOrdered By: Virginia Mccain on 03-13-2024 Beta HCG ( test) Ql Negative (03/13/24 6:53 PM) Normal [facility] Man Sero Troponinon 03-13-2024 Troponin 6.10 pg/mL Low 10.10-27.1 0 [facility] Comment on above: Result Comment: The 95% CI (Confidence Interval) PPV (Positive Predictive Value) for myocardial infarction in females is 38 pg/mL, in males 51 pg/mL. The results should be used in conjunction with clinical conditions of myocardial infarction. (Access High Sensitivity Troponin I Instructions For Use, [employer], June 2018) Performed By: #### 2 1519128, 9158659, 9871052, 1142151, 6511773, 99989538, 80460087, 3471855, 8390876 ####[facility] [address] [place] [address] eGFRon 03-13-2024 eGFR 94 mL/min/1.73 m2 Normal >=59 [facility] Comment on above: Order Comment: qns t o run. phlebotomists notified of recollect by message. [email or web address] 03/13/2024 18:28:21 EDTOrder added by Discern Expert. Performed By: #### 2 8552626, 7743670, 0367967, 4255267, 6598020, 86003427, 05050696, 7559061, 3521161 ####[facility] [address] [place] [address] ECG 12 lead ECGon 07-31-2023 ECG 12 lead ECG [facility] Main [address] [address] Electrocardiograph Report Signed Patient: Pili Parikh MR#: [id number] 1526 : 2005 Acct:[id number] Age/Sex: 18 / F ADM Date: 07/31/23 Loc: ER Room: Type: [facility] ER Attending Dr: Ordering Provider: Chika Thompson DO Date of Service: 07/31/2302/17/1806 ECG/ECG 12 lead ECG: Nausea/Vomiting/Diarrhea Copies to: Test Reason : Blood Pressure : / mmHG Vent. Rate : 072 BPM Atrial Rate : 087 BPM P-R Int : 142 ms QRS Dur : 078 ms QT Int : 398 ms P-R-T Axes : 067 045 057 degrees QTc Int : 435 ms Sinus rhythm with marked sinus arrhythmia Otherwise normal ECG When compared with ECG of 07-JAN-2023 08:30, T wave inversion no longer evident in Inferior leads Confirmed by CHIKA THOMPSON DO ([id number]) on 08/01/2023 3:20:39 PM Referred By: Electronically Signed By:CHIKA THOMPSON DO Transcribed By: MUS Signed By Chika Thompson DO 1520 Normal [facility] XR knee RT 2Von 07-14-2023 XR knee RT 2V [address] [address] XRay Report Signed Patient: Pili Parikh MR#: [id number] 1526 : 2005 Acct:[id number] Age/Sex: 18 / F ADM Date: 07/14/23 Loc: [facility] Room: Type: [facility] Attending Dr: Colten Miller MD Copies to: Colten Miller MD Ordering Provider: Colten Miller MD Date of Service: 07/14/23 XR/XR knee RT 2V: Displaced fracture of right tibial spine, subsequent encount 2 views right knee plain film COMPARISON: 06/16/2023 HISTORY: Status post right knee arthroscopically of tibial spine fixation. ACUTE FINDINGS: Stable fracture DEGENERATIVE CHANGE: Unremarkable SOFT TISSUE FINDINGS: Unremarkable JOINT EFFUSION: None POSTOP CHANGES: None BONE MINERALIZATION: Adequate XR/XR knee RT 2V IMPRESSION: Stable findings Impression dictated by: Floyd Goldsmith M.D.07/14/2023 2:21 PM Dictation Location: [place] [address] Transcribed By: [facility] 07/14/23 142 Dictated By: Floyd Goldsmith DO 07/14/23 142 Signed By: 07/14/23 142 Normal [facility] XR knee RT 2Von 06-16-2023 XR knee RT 2V [address] [address] XRay Report Signed Patient: Pili Parikh MR#: [id number] 1526 : 2005 Acct:[id number] Age/Sex: 18 / F ADM Date: 06/16/23 Loc: [facility]: Colten Miller MD Copies to: Colten Miller MD Ordering Provider: Colten Miller MD Date of Service: 06/16/23 XR/XR knee RT 2V: Displaced fracture of right tibial spine, subsequent encount RIGHT KNEE - 2 views CLINICAL HISTORY: Status post medial meniscal repair COMPARISON: Right knee 06/02/2023 FINDINGS: The previously reported tibial spine fracture is unchanged. Small knee joint effusion. Hardware defects are noted involving the proximal tibia. Joint spaces appear maintained. XR/XR knee RT 2V IMPRESSION: NO SIGNIFICANT CHANGE IN KNEE FINDINGS COMPARED TO THE PRIOR STUDY. Impression dictated by: Kumar Humphreys Jr., D.O.06/16/2023 2:30 PM Dictation Location: [place] [address] Transcribed By: [facility] 06/16/23 1430 Dictated By: Kumar Humphreys Jr, DO 06/16/23 1429 Signed By: 06/16/23 1430 Normal [facility] XR knee RT 2Von 06-02-2023 XR knee RT 2V [facility] Main [address] [address] XRay Report Signed Patient: Pili Parikh MR#: [id number] 1526 : 2005 Acct:[id number] Age/Sex: 18 / F ADM Date: 06/02/23 Loc: [facility] Room: Type: [facility] CLI Attending Dr: Colten Miller MD Copies to: Colten Miller MD Ordering Provider: Colten Miller MD Date of Service: 06/02/23 XR/XR knee RT 2V: Displaced fracture of right tibial spine, subsequent encount 2 views right knee plain film COMPARISON: 05/18/2023 HISTORY: Status post right the medial meniscus repair. Continued pain. ACUTE FINDINGS: The tibial spine fracture redemonstrated. This is unchanged. DEGENERATIVE CHANGE: Unremarkable SOFT TISSUE FINDINGS: Unremarkable JOINT EFFUSION: None POSTOP CHANGES: Prior proximal tibial postsurgical changes. BONE MINERALIZATION: Adequate XR/XR knee RT 2V IMPRESSION: Similar and tibial spine fracture. Impression dictated by: Floyd Goldsmith M.D.06/02/2023 2:45 PM Dictation Location: [place] [address] Transcribed By: [facility] 06/02/23 144 Dictated By: Floyd Goldsmith DO 06/02/231442 Signed By: 06/02/23 144 Normal [facility] Amphetamine Screen Ql (U)Ord ered By: Axel Christian on 05-25-2023 Amphetamines Ql (U) Negative Negative [facility] Barbiturates [Presence] in U rine by Screen methodOrdered By: Axel Christian on 05-25-2023 Barbiturates Screen Ql (U) Negative Negative [facility] Benzodiazepines Screen Ql (U )Ordered By: Axel Christian on 05-25-2023 Benzodiazepines Ql (U) Negative Negative [facility] Benzoylecgonine [Presence] i n Urine by Screen methodOrdered By: Axel Christian on 05-25-2023 Benzoylecgonine Screen Ql (U) Negative Negative [facility] Cannabinoids [Presence] in U rine by Screen methodOrdered By: Axel Christian on 05-25-2023 Cannabinoids Screen Ql (U) Positive Negative [facility] Comment on above: These are unconfirme d results and should not be used for legal purposes. Drug Cut-Off Concentration: AMPH 1000 ng/mL NIKOLAS 200 ng/mL SHRAVAN 200 ng/mL COCM 300 ng/mL OP 300 ng/mL PCP 25 ng/mL THC 20 ng/mL Drug Screen,Urineon 05-25-20 Amphetamine Screen,Urine Negative Normal Negative [facility] Comment on above: Performed By: #### [facility] #### [address] Barbiturate Screen,Urine Negative Normal Negative [facility] Comment on above: Performed By: #### U TERESA CG #### [facility] [address] Benzodiazepines Screen,Urine Negative Normal Negative [facility] Comment on above: Performed By: #### U RDS, UHCG #### [address] Cannabinoid Screen,Urine Positive High Negative [facility] Comment on above: Result Comment: Thes e are unconfirmed results and should not be used for legal purposes. Drug Cut-Off Concentration: AMPH 1000 ng/mL NIKOLAS 200 ng/mL SHRAVAN 200 ng/mL COCM 300 ng/mL OP 300 ng/mL PCP 25 ng/mL THC 20 ng/mL PERFORMED BY: [place] [address] PATHOLOGIST DIRECTOR OF EVENT MANAGEMENT NAY SARKAR M.D. Performed By: #### U RDS, UHCG #### [address] Cocaine Screen,Urine Negative Normal Negative [facility] Comment on above: Performed By: #### U RDS, UHCG #### [address] Opiate Screen,Urine Negative Normal Negative [facility] Comment on above: Performed By: #### U RDS, UHCG #### [address] Phencyclidine Screen,Urine Negative Normal Negative [facility] Comment on above: Performed By: #### U RDS, UHCG #### [address] HCG ( test) IA.rapi d Ql (U)Ordered By: Axel Christian on 05-25-2023 HCG ( test) Ql (U) Negative [facility] HCG,Urineon 05-25-2023 Beta HCG ( test) Ql (U) Negative Normal [facility] Comment on above: Result Comment: PERF ORMED BY: [place] [address] PATHOLOGIST DIRECTOR OF EVENT MANAGEMENT NAY SARKAR M.D. Performed By: #### U RDS, UHCG #### [address] Opiates [Presence] in Urine by Screen methodOrdered By: Axel Christian on 05-25-2023 Opiates Screen Ql (U) Negative Negative [facility] Phencyclidine Screen Ql (U)O rdered By: Axel Fish on 05-25-2023 Phencyclidine Ql (U) Negative Negative [facility] COVID-19 Detected/Not Detect edOrdered By: Modesta Chand on 03-15-2023 SARS-CoV-2 (COVID-19) RNA JANAK+non-probe Ql (Nph) Not detected Not Detecte [facility] Comment on above: This is a duplicate RP2.1 COVID (PCR) result to be used for statistical tracking purpose only. Respiratory pathogens DNA an d RNA panel - Nasopharynx by JANAK with non-probe detectionOrdered By: Modesta Chand on 03-15-2023 Respiratory pathogens DNA and RNA panel JANAK+non-probe (Nph) [facility] Basophils Auto (Bld) [#/Vol] Ordered By: Anette Stout on 01-07-2023 Basophils (Bld) [#/Vol] 0.0 10*3/uL 0.0-0.1 [facility] Basophils/100 WBC Auto (Bld) Ordered By: Anette Stout on 01-07-2023 Basophils/100 WBC (Bld) 0.4 % . [facility] Eosinophils Auto (Bld) [#/Vo l]Ordered By: Anette Stout on 01-07-2023 Eosinophils (Bld) [#/Vol] 0.7 10*3/uL 0.0-0.7 [facility] Eosinophils/100 WBC Auto (Bl d)Ordered By: Anette Stout on 01-07-2023 Eosinophils/100 WBC (Bld) 5.5 % . [facility] Erythrocyte distribution wid th Auto (RBC) [Ratio]Ordered By: Anette Stout on 01-07-2023 Erythrocyte distribution width (RBC) [Ratio] 13.5 % 11.9-15.3 [facility] Estimated glomerular filtrat ion rate (GFR) non- AmericanOrdered By: Anette Stout on 01-07-2023 GFR/1.73 sq M.predicted among non-blacks MDRD (S/P/Bld) [Vol rate/Area] > 60 mL/Min [facility] Hematocrit Auto (Bld) [Volum e fraction]Ordered By: Anette Stout on 01-07-2023 Hematocrit (Bld) [Volume fraction] 41.5 % 36.0-46.0 [facility] Hemoglobin [Mass/volume] in BloodOrdered By: Anette Stout on 01-07-2023 Hemoglobin (Bld) [Mass/Vol] 14.0 g/dL 12.0-16.0 [facility] Leukocytes [#/volume] correc venkata for nucleated erythrocytes in Blood by Automated counOrdered By: Anette Stout on 01-07-2023 WBC corrected for nucl RBC Auto (Bld) [#/Vol] 12.1 10*3/uL 4.5-13.5 [facility] Lymphocytes Auto (Bld) [#/Vo l]Ordered By: Anette Stout on 01-07-2023 Lymphocytes (Bld) [#/Vol] 2.5 10*3/uL 1.20-4.8 [facility] Lymphocytes/100 WBC Auto (Bl d)Ordered By: Anette Stout on 01-07-2023 Lymphocytes/100 WBC (Bld) 20.9 % . [facility] MCH Auto (RBC) [Entitic mass ]Ordered By: Anette Stout on 01-07-2023 MCH (RBC) [Entitic mass] 28.8 pg 25.0-35.0 [facility] MCHC Auto (RBC) [Mass/Vol]Or dered By: Anette Stout on 01-07-2023 MCHC (RBC) [Mass/Vol] 33.7 g/dL 31.0-37.0 [facility] MCV Auto (RBC) [Entitic vol] Ordered By: Anette Stout on 01-07-2023 MCV (RBC) [Entitic vol] 85.5 fL 78-102 [facility] Monocytes Auto (Bld) [#/Vol] Ordered By: Anette Stout on 01-07-2023 Monocytes (Bld) [#/Vol] 0.9 10*3/uL 0.1-1.00 [facility] Monocytes/100 WBC Auto (Bld) Ordered By: Anette Stout on 01-07-2023 Monocytes/100 WBC (Bld) 7.5 % . [facility] Neutrophils Auto (Bld) [#/Vo l]Ordered By: Anette Stout on 01-07-2023 Neutrophils (Bld) [#/Vol] 8.0 10*3/uL 1.2-7.7 [facility] Neutrophils/100 WBC Auto (Bl d)Ordered By: Anette Stout on 01-07-2023 Neutrophils/100 WBC (Bld) 65.7 % . [facility] No Panel InformationOrdered By: Anette Stout on 01-07-2023 > 60 mL/Min [facility] 113.92 [facility] Nucleated erythrocytes [Pres ence] in Blood by Automated countOrdered By: Anette Stout on 01-07-2023 Nucleated RBC Auto Ql (Bld) 0.1 /100{WBC} 0-0.5 [facility] Platelet mean volume Auto (B ld) [Entitic vol]Ordered By: Anette Stout on 01-07-2023 Platelet mean volume (Bld) [Entitic vol] 8.6 fL 6.3-10.7 [facility] Platelets Auto (Bld) [#/Vol] Ordered By: Anette Stout on 01-07-2023 Platelets (Bld) [#/Vol] 222 10*3/uL 150-450 [facility] RBC Auto (Bld) [#/Vol]Ordere d By: Anette Stout on 01-07-2023 RBC (Bld) [#/Vol] 4.85 10*6/uL 4.10-5.10 [facility] Serum or plasma anion gap de terminationOrdered By: Anette Stout on 01-07-2023 Anion gap [Moles/Vol] N/A [facility] Serum or plasma calcium tammy urement (mass/volume)Ordered By: Anette Stout on 01-07-2023 Calcium [Mass/Vol] 8.5 mg/dL 8.2-10.2 [facility] Serum or plasma chloride judy surement (moles/volume)Ordered By: Anette Stout on 01-07-2023 Chloride [Moles/Vol] 103 mmol/L 95-114 [facility] Serum or plasma creatinine m easurement with calculation of estimated glomerular filtrOrdered By: Anette Stout on 01-07-2023 Creatinine and Glomerular filtration rate.predicted panel (S/P/Bld) 0.77 mg/dL 0.44-1.03 [facility] Serum or plasma glucose tammy urement (mass/volume)Ordered By: Anette Stout on 01-07-2023 Glucose [Mass/Vol] 90 mg/dL 70-100 [facility] Serum or plasma potassium me asurement (moles/volume)Ordered By: Eliana Bautista on 01-07-2023 Potassium [Moles/Vol] 3.2 mmol/L 3.5-5.1 [facility] Serum or plasma sodium measu rement (moles/volume)Ordered By: Anette Stout on 01-07-2023 Sodium [Moles/Vol] 134 mmol/L 136-146 [facility] Serum or plasma total carbon dioxide measurement (moles/volume)Ordered By: Anette Stout on 01-07-2023 CO2 [Moles/Vol] 23.4 mmol/L 22.0-30.0 [facility] Serum or plasma urea nitroge n measurement (mass/volume)Ordered By: Anette Stout on 01-07-2023 Urea nitrogen [Mass/Vol] 8 mg/dL 9-23 [facility] WBC Auto (Bld) [#/Vol]Ordere d By: Anette Stout on 01-07-2023 WBC (Bld) [#/Vol] 12.1 10*3/uL 4.5-13.5 [facility] Amphetamine Screen Ql (U)Ord ered By: Anette Stout on 01-06-2023 Amphetamines Ql (U) Negative Negative [facility] Automated erythrocytes count in urine sediment (number/area)Ordered By: Rd Brown on 01-06-2023 RBC Auto (Urine sed) [#/Area] None seen [HPF] 0-4 [facility] Automated leukocytes count i n urine sediment (number/area)Ordered By: Rd Brown on 01-06-2023 WBC Auto (Urine sed) [#/Area] 20-49 [HPF] 0-4 [facility] Automated urine hyaline cast s count (number/volume)Ordered By: Rd Brown on 01-06-2023 Hyaline casts Auto (U) [#/Vol] None seen [LPF] 0-1 [facility] Barbiturates [Presence] in U rineOrdered By: Anette Stout on 01-06-2023 Barbiturates Ql (U) Negative Negative [facility] Basophils Auto (Bld) [#/Vol] Ordered By: Rd Brown on 01-06-2023 Basophils (Bld) [#/Vol] 0.0 10*3/uL 0.0-0.1 [facility] Basophils/100 WBC Auto (Bld) Ordered By: Rd Brown on 01-06-2023 Basophils/100 WBC (Bld) 0.3 % . [facility] Benzodiazepines [Presence] i n UrineOrdered By: Anette Stout on 01-06-2023 Benzodiazepines Ql (U) Negative Negative [facility] Bilirubin Test strip Ql (U)O rdered By: Rd Brown on 01-06-2023 Bilirubin Ql (U) Negative Negative [facility] Body fluid albumin measureme nt (mass/volume)Ordered By: Rd Brown on 01-06-2023 Albumin (Body fld) [Mass/Vol] 4.9 g/dL 3.2-5.5 [facility] Cannabinoids [Presence] in U rine by Screen methodOrdered By: Anette Stout on 01-06-2023 Cannabinoids Screen Ql (U) Positive Negative [facility] Casts typing in urine sedime nt by light microscopyOrdered By: Rd Brown on 01-06-2023 Casts LM Nom (Urine sed) None seen [LPF] None Seen [facility] Color Auto (U)Ordered By: Andrew Brown on 01-06-2023 Color (U) Yellow Yellow [facility] Eosinophils Auto (Bld) [#/Vo l]Ordered By: Rd Brown on 01-06-2023 Eosinophils (Bld) [#/Vol] 0.4 10*3/uL 0.0-0.7 [facility] Eosinophils/100 WBC Auto (Bl d)Ordered By: Rd Brown on 01-06-2023 Eosinophils/100 WBC (Bld) 2.3 % . [facility] Erythrocyte distribution wid th Auto (RBC) [Ratio]Ordered By: Rd Brown on 01-06-2023 Erythrocyte distribution width (RBC) [Ratio] 13.5 % 11.9-15.3 [facility] Estimated glomerular filtrat ion rate (GFR) non- AmericanOrdered By: Rd Brown on 01-06-2023 GFR/1.73 sq M.predicted among non-blacks MDRD (S/P/Bld) [Vol rate/Area] > 60 mL/Min [facility] Globulin Calc (S) [Mass/Vol] Ordered By: Rd Brown on 01-06-2023 Globulin (S) [Mass/Vol] 2.9 g/dL [facility] HCG ( test) IA.rapi d Ql (U)Ordered By: Rd Brown on 01-06-2023 HCG ( test) Ql (U) Negative [facility] Hematocrit Auto (Bld) [Volum e fraction]Ordered By: Rd Brown on 01-06-2023 Hematocrit (Bld) [Volume fraction] 48.3 % 36.0-46.0 [facility] Hemoglobin [Mass/volume] in BloodOrdered By: Rd Brown on 01-06-2023 Hemoglobin (Bld) [Mass/Vol] 16.2 g/dL 12.0-16.0 [facility] Ketones Auto test strip (U) [Mass/Vol]Ordered By: Rd Brown on 01-06-2023 Ketones (U) [Mass/Vol] 4+ Negative [facility] Leukocytes [#/volume] correc venkata for nucleated erythrocytes in Blood by Automated counOrdered By: Rd Brown on 01-06-2023 WBC corrected for nucl RBC Auto (Bld) [#/Vol] 17.7 10*3/uL 4.5-13.5 [facility] Lymphocytes Auto (Bld) [#/Vo l]Ordered By: Rd Brown on 01-06-2023 Lymphocytes (Bld) [#/Vol] 3.5 10*3/uL 1.20-4.8 [facility] Lymphocytes/100 WBC Auto (Bl d)Ordered By: Rd Brown on 01-06-2023 Lymphocytes/100 WBC (Bld) 19.9 % . [facility] MCH Auto (RBC) [Entitic mass ]Ordered By: Rd Brown on 01-06-2023 MCH (RBC) [Entitic mass] 28.7 pg 25.0-35.0 [facility] MCHC Auto (RBC) [Mass/Vol]Or dered By: Rd Brown on 01-06-2023 MCHC (RBC) [Mass/Vol] 33.6 g/dL 31.0-37.0 [facility] MCV Auto (RBC) [Entitic vol] Ordered By: Rd Brown on 01-06-2023 MCV (RBC) [Entitic vol] 85.4 fL 78-102 [facility] Monocyte distribution width [Entitic volume] in Blood by AutomatedOrdered By: Rd Brown on 01-06-2023 Monocyte distribution width Auto (Bld) [Entitic vol] 15.43 % 0.00-20.00 [facility] Monocytes Auto (Bld) [#/Vol] Ordered By: Rd Brown on 01-06-2023 Monocytes (Bld) [#/Vol] 1.3 10*3/uL 0.1-1.00 [facility] Monocytes/100 WBC Auto (Bld) Ordered By: Rd Brown on 01-06-2023 Monocytes/100 WBC (Bld) 7.4 % . [facility] Neutrophils Auto (Bld) [#/Vo l]Ordered By: Rd Brown on 01-06-2023 Neutrophils (Bld) [#/Vol] 12.4 10*3/uL 1.2-7.7 [facility] Neutrophils/100 WBC Auto (Bl d)Ordered By: Rd Brown on 01-06-2023 Neutrophils/100 WBC (Bld) 70.1 % . [facility] Nitrite Test strip Ql (U)Ord ered By: Rd Brown on 01-06-2023 Nitrite Ql (U) Negative Negative [facility] No Panel InformationOrdered By: Anette Stout on 01-06-2023 Negative Negative [facility] No Panel InformationOrdered By: Rd Brown on 01-06-2023 > 60 mL/Min [facility] 31.0 U/L 22-51 [facility] 102.00 [facility] Nucleated erythrocytes [Pres ence] in Blood by Automated countOrdered By: Rd Brown on 01-06-2023 Nucleated RBC Auto Ql (Bld) 0.1 /100{WBC} 0-0.5 [facility] Phencyclidine Screen Ql (U)O rdered By: Anette Stout on 01-06-2023 Phencyclidine Ql (U) Negative Negative [facility] Platelet mean volume Auto (B ld) [Entitic vol]Ordered By: Rd Brown on 01-06-2023 Platelet mean volume (Bld) [Entitic vol] 8.5 fL 6.3-10.7 [facility] Platelets Auto (Bld) [#/Vol] Ordered By: Rd Brown on 01-06-2023 Platelets (Bld) [#/Vol] 296 10*3/uL 150-450 [facility] Protein Auto test strip (U) [Mass/Vol]Ordered By: Rd Brown on 01-06-2023 Protein (U) [Mass/Vol] 100 mg/dL Negative [facility] Protein [Mass/volume] in Ser um or PlasmaOrdered By: Rd Brown on 01-06-2023 Protein [Mass/Vol] 7.8 g/dL 6.1-7.9 [facility] RBC Auto (Bld) [#/Vol]Ordere d By: Rd Brown on 01-06-2023 RBC (Bld) [#/Vol] 5.65 10*6/uL 4.10-5.10 [facility] Serum or plasma alanine florez otransferase measurement without P-5'-P (enzymatic activiOrdered By: Rd Brown on 01-06-2023 ALT No additional P-5'-P [Catalytic activity/Vol] 20 U/L 10-60 [facility] Serum or plasma albumin/glob ulin mass ratioOrdered By: Rd Brown on 01-06-2023 Albumin/Globulin [Mass ratio] 1.7 {ratio} [facility] Serum or plasma alkaline justin sphatase measurement (enzymatic activity/volume)Ordered By: Rd Brown on 01-06-2023 ALP [Catalytic activity/Vol] 66 U/L 32-92 [facility] Serum or plasma anion gap de terminationOrdered By: Rd Brown on 01-06-2023 Anion gap [Moles/Vol] 19.4 mmol/L 6.0-15.0 [facility] Serum or plasma aspartate am inotransferase measurement (enzymatic activity/volume)Ordered By: Rd Brown on 01-06-2023 AST [Catalytic activity/Vol] 20 U/L 10-42 [facility] Serum or plasma calcium tammy urement (mass/volume)Ordered By: Rd Brown on 01-06-2023 Calcium [Mass/Vol] 9.8 mg/dL 8.2-10.2 [facility] Serum or plasma chloride judy surement (moles/volume)Ordered By: Rd Brown on 01-06-2023 Chloride [Moles/Vol] 91 mmol/L 95-114 [facility] Serum or plasma creatinine m easurement with calculation of estimated glomerular filtrOrdered By: Rd Brown on 01-06-2023 Creatinine and Glomerular filtration rate.predicted panel (S/P/Bld) 0.86 mg/dL 0.44-1.03 [facility] Serum or plasma glucose tammy urement (mass/volume)Ordered By: Rd Brown on 01-06-2023 Glucose [Mass/Vol] 80 mg/dL 70-100 [facility] Serum or plasma potassium me asurement (moles/volume)Ordered By: Rd Brown on 01-06-2023 Potassium [Moles/Vol] 2.7 mmol/L 3.5-5.1 [facility] Serum or plasma sodium measu rement (moles/volume)Ordered By: Rd Brown on 01-06-2023 Sodium [Moles/Vol] 132 mmol/L 136-146 [facility] Serum or plasma total biliru bin measurement (mass/volume)Ordered By: Rd Brown on 01-06-2023 Bilirubin [Mass/Vol] 1.5 mg/dL 0.3-1.2 [facility] Serum or plasma total carbon dioxide measurement (moles/volume)Ordered By: Rd Brown on 01-06-2023 CO2 [Moles/Vol] 24.3 mmol/L 22.0-30.0 [facility] Serum or plasma urea nitroge n measurement (mass/volume)Ordered By: Rd Brown on 01-06-2023 Urea nitrogen [Mass/Vol] 19 mg/dL 9-23 [facility] Specific gravity Auto test s trip (U) [Rel density]Ordered By: Rd Brown on 01-06-2023 Specific gravity (U) [Rel density] 1.027 1.001-1.03 0 [facility] Squamous epithelial cells de tection in urine sediment by light microscopyOrdered By: Rd Brown on 01-06-2023 Epithelial cells.squamous LM Ql (Urine sed) 10-19 [HPF] 0-2 [facility] Troponin I.cardiac [Mass/vol ume] in Serum or Plasma by High sensitivity methodOrdered By: Federico Randolph on 01-06-2023 Troponin I.cardiac High sensitivity method [Mass/Vol] 6 pg/mL 0-15 [facility] Urine bacteria detection by automated methodOrdered By: Rd Brown on 01-06-2023 Bacteria Auto Ql (U) 1+ None Seen [facility] Urine clarity by refractomet ry automatedOrdered By: Rd Brown on 01-06-2023 Clarity Refractometry automated (U) Cloudy Clear [facility] Urine cocaine detectionOrder ed By: Anette Stout on 01-06-2023 Cocaine Ql (U) Negative Negative [facility] Urine glucose measurement by automated test strip (mass/volume)Ordered By: Rd Brown on 01-06-2023 Glucose Auto test strip (U) [Mass/Vol] Normal mg/dL Normal [facility] Urine hemoglobin detection b y automated test stripOrdered By: Rd Brown on 01-06-2023 Hemoglobin Auto test strip Ql (U) 3+ Negative [facility] Urine lactic acid measuremen tOrdered By: Rd Brown on 01-06-2023 Lactate (U) [Moles/Vol] 1.6 mmol/L 0.5-2.2 [facility] Urine leukocyte esterase det ection by automated test stripOrdered By: Rd Brown on 01-06-2023 Leukocyte esterase Auto test strip Ql (U) 2+ Negative [facility] Urobilinogen Auto test strip (U) [Mass/Vol]Ordered By: Rd Brown on 01-06-2023 Urobilinogen (U) [Mass/Vol] Normal mg/dL Normal [facility] WBC Auto (Bld) [#/Vol]Ordere d By: Rd Brown on 01-06-2023 WBC (Bld) [#/Vol] 17.7 10*3/uL 4.5-13.5 [facility] pH Auto test strip (U)Ordere d By: Rd Brown on 01-06-2023 pH (U) 6.5 [pH] 5.0-9.0 [facility] Albumin [Mass/volume] in Ser um or PlasmaOrdered By: Chika Thompson on 01-02-2023 Albumin [Mass/Vol] 5.0 g/dL 3.2-5.5 [facility] Automated erythrocytes count in urine sediment (number/area)Ordered By: Chika Thompson on 01-02-2023 RBC Auto (Urine sed) [#/Area] 3-4 [HPF] 0-4 [facility] Automated leukocytes count i n urine sediment (number/area)Ordered By: Chika Thompson on 01-02-2023 WBC Auto (Urine sed) [#/Area] 50-100 [HPF] 0-4 [facility] Automated urine hyaline cast s count (number/volume)Ordered By: Chika Thompson on 01-02-2023 Hyaline casts Auto (U) [#/Vol] None seen [LPF] 0-1 [facility] Basophils Auto (Bld) [#/Vol] Ordered By: Chika Thompson on 01-02-2023 Basophils (Bld) [#/Vol] 0.1 10*3/uL 0.0-0.1 [facility] Basophils/100 WBC Auto (Bld) Ordered By: Chika Thompson on 01-02-2023 Basophils/100 WBC (Bld) 0.5 % . [facility] Bilirubin Test strip Ql (U)O rdered By: Chika Thompson on 02-05-2023 Bilirubin Ql (U) Negative Negative [facility] Casts typing in urine sedime nt by light microscopyOrdered By: Chika Thompson on 01-02-2023 Casts LM Nom (Urine sed) None seen [LPF] None Seen [facility] Color Auto (U)Ordered By: Gisselle Thompson on 01-02-2023 Color (U) Yellow Yellow [facility] Eosinophils Auto (Bld) [#/Vo l]Ordered By: Chika Thompson on 01-02-2023 Eosinophils (Bld) [#/Vol] 0.0 10*3/uL 0.0-0.7 [facility] Eosinophils/100 WBC Auto (Bl d)Ordered By: Chika Thompson on 01-02-2023 Eosinophils/100 WBC (Bld) 0.0 % . [facility] Erythrocyte distribution wid th Auto (RBC) [Ratio]Ordered By: Chika Thompson on 01-02-2023 Erythrocyte distribution width (RBC) [Ratio] 13.9 % 11.9-15.3 [facility] Estimated glomerular filtrat ion rate (GFR) non- AmericanOrdered By: Chika Thompson on 01-02-2023 GFR/1.73 sq M.predicted among non-blacks MDRD (S/P/Bld) [Vol rate/Area] > 60 mL/Min [facility] Globulin Calc (S) [Mass/Vol] Ordered By: Chika Thompson on 01-02-2023 Globulin (S) [Mass/Vol] 2.9 g/dL [facility] HCG ( test) IA.rapi d Ql (U)Ordered By: Chika Thompson on 01-02-2023 HCG ( test) Ql (U) Negative [facility] Hematocrit Auto (Bld) [Volum e fraction]Ordered By: Chika Thompson on 01-02-2023 Hematocrit (Bld) [Volume fraction] 42.1 % 36.0-46.0 [facility] Hemoglobin [Mass/volume] in BloodOrdered By: Chika Thompson on 01-02-2023 Hemoglobin (Bld) [Mass/Vol] 14.0 g/dL 12.0-16.0 [facility] Ketones Auto test strip (U) [Mass/Vol]Ordered By: Chika Thompson on 01-02-2023 Ketones (U) [Mass/Vol] 3+ Negative [facility] Leukocytes [#/volume] correc venkata for nucleated erythrocytes in Blood by Automated counOrdered By: Chika Thompson on 01-02-2023 WBC corrected for nucl RBC Auto (Bld) [#/Vol] 14.1 10*3/uL 4.5-13.5 [facility] Lymphocytes Auto (Bld) [#/Vo l]Ordered By: Chika Thompson on 01-02-2023 Lymphocytes (Bld) [#/Vol] 1.4 10*3/uL 1.20-4.8 [facility] Lymphocytes/100 WBC Auto (Bl d)Ordered By: Chika Thompson on 01-02-2023 Lymphocytes/100 WBC (Bld) 10.1 % . [facility] MCH Auto (RBC) [Entitic mass ]Ordered By: Chika Thompson on 01-02-2023 MCH (RBC) [Entitic mass] 28.6 pg 25.0-35.0 [facility] MCHC Auto (RBC) [Mass/Vol]Or dered By: Chika Thompson on 01-02-2023 MCHC (RBC) [Mass/Vol] 33.2 g/dL 31.0-37.0 [facility] MCV Auto (RBC) [Entitic vol] Ordered By: Chika Thompson on 01-02-2023 MCV (RBC) [Entitic vol] 86.2 fL 78-102 [facility] Monocyte distribution width [Entitic volume] in Blood by AutomatedOrdered By: Chika Thompson on 01-02-2023 Monocyte distribution width Auto (Bld) [Entitic vol] 16.52 % 0.00-20.00 [facility] Monocytes Auto (Bld) [#/Vol] Ordered By: Chika Thompson on 01-02-2023 Monocytes (Bld) [#/Vol] 1.0 10*3/uL 0.1-1.00 [facility] Monocytes/100 WBC Auto (Bld) Ordered By: Chika Thompson on 01-02-2023 Monocytes/100 WBC (Bld) 7.0 % . [facility] Neutrophils Auto (Bld) [#/Vo l]Ordered By: Chika Thompson on 01-02-2023 Neutrophils (Bld) [#/Vol] 11.6 10*3/uL 1.2-7.7 [facility] Neutrophils/100 WBC Auto (Bl d)Ordered By: Chika Thompson on 01-02-2023 Neutrophils/100 WBC (Bld) 82.4 % . [facility] Nitrite Test strip Ql (U)Ord ered By: Chika Thompson on 01-02-2023 Nitrite Ql (U) Negative Negative [facility] No Panel InformationOrdered By: Chika Thompson on 01-02-2023 > 60 mL/Min [facility] 29.0 U/L 22-51 [facility] 86.85 [facility] Nucleated erythrocytes [Pres ence] in Blood by Automated countOrdered By: Chika Thompson on 01-02-2023 Nucleated RBC Auto Ql (Bld) 0.0 /100{WBC} 0-0.5 [facility] Platelet mean volume Auto (B ld) [Entitic vol]Ordered By: Chika Thompson on 01-02-2023 Platelet mean volume (Bld) [Entitic vol] 8.4 fL 6.3-10.7 [facility] Platelets Auto (Bld) [#/Vol] Ordered By: Chika Thompson on 01-02-2023 Platelets (Bld) [#/Vol] 299 10*3/uL 150-450 [facility] Protein Auto test strip (U) [Mass/Vol]Ordered By: Chika Thompson on 01-02-2023 Protein (U) [Mass/Vol] 100 mg/dL Negative [facility] Protein [Mass/volume] in Ser um or PlasmaOrdered By: Chika Thompson on 01-02-2023 Protein [Mass/Vol] 7.9 g/dL 6.1-7.9 [facility] RBC Auto (Bld) [#/Vol]Ordere d By: Chika Thompson on 01-02-2023 RBC (Bld) [#/Vol] 4.89 10*6/uL 4.10-5.10 [facility] Serum or plasma alanine florez otransferase measurement without P-5'-P (enzymatic activiOrdered By: Chika Thompson on 01-02-2023 ALT No additional P-5'-P [Catalytic activity/Vol] 26 U/L 10-60 [facility] Serum or plasma albumin/glob ulin mass ratioOrdered By: Chika Thompson on 01-02-2023 Albumin/Globulin [Mass ratio] 1.7 {ratio} [facility] Serum or plasma alkaline justin sphatase measurement (enzymatic activity/volume)Ordered By: Chika Thompson on 01-02-2023 ALP [Catalytic activity/Vol] 60 U/L 32-92 [facility] Serum or plasma anion gap de terminationOrdered By: Chika Thompson on 01-02-2023 Anion gap [Moles/Vol] 16.4 mmol/L 6.0-15.0 [facility] Serum or plasma aspartate am inotransferase measurement (enzymatic activity/volume)Ordered By: Chika Thompson on 01-02-2023 AST [Catalytic activity/Vol] 32 U/L 10-42 [facility] Serum or plasma calcium tammy urement (mass/volume)Ordered By: Chika Thompson on 01-02-2023 Calcium [Mass/Vol] 9.8 mg/dL 8.2-10.2 [facility] Serum or plasma chloride judy surement (moles/volume)Ordered By: Chika Thompson on 01-02-2023 Chloride [Moles/Vol] 106 mmol/L 95-114 [facility] Serum or plasma creatinine m easurement with calculation of estimated glomerular filtrOrdered By: Chika Thompson on 01-02-2023 Creatinine and Glomerular filtration rate.predicted panel (S/P/Bld) 1.01 mg/dL 0.44-1.03 [facility] Serum or plasma glucose tammy urement (mass/volume)Ordered By: Chika Thompson on 01-02-2023 Glucose [Mass/Vol] 123 mg/dL 70-100 [facility] Serum or plasma potassium me asurement (moles/volume)Ordered By: Chika Thompson on 01-02-2023 Potassium [Moles/Vol] 3.2 mmol/L 3.5-5.1 [facility] Serum or plasma sodium measu rement (moles/volume)Ordered By: Chika Thompson on 01-02-2023 Sodium [Moles/Vol] 142 mmol/L 136-146 [facility] Serum or plasma total biliru bin measurement (mass/volume)Ordered By: Chika Thompson on 01-02-2023 Bilirubin [Mass/Vol] 0.8 mg/dL 0.3-1.2 [facility] Serum or plasma total carbon dioxide measurement (moles/volume)Ordered By: Chika Thompson on 01-02-2023 CO2 [Moles/Vol] 22.8 mmol/L 22.0-30.0 [facility] Serum or plasma urea nitroge n measurement (mass/volume)Ordered By: Chika Thompson on 01-02-2023 Urea nitrogen [Mass/Vol] 22 mg/dL 9-23 [facility] Specific gravity Auto test s trip (U) [Rel density]Ordered By: Chika Thompson on 01-02-2023 Specific gravity (U) [Rel density] 1.036 1.001-1.03 0 [facility] Squamous epithelial cells de tection in urine sediment by light microscopyOrdered By: Chika Thompson on 01-02-2023 Epithelial cells.squamous LM Ql (Urine sed) Innumerable [HPF] 0-2 [facility] Urine bacteria detection by automated methodOrdered By: Chika Thompson on 01-02-2023 Bacteria Auto Ql (U) 3+ None Seen [facility] Urine clarity by refractomet ry automatedOrdered By: Chika Thompson on 01-02-2023 Clarity Refractometry automated (U) Turbid Clear [facility] Urine culture routineOrdered By: Chika Thompson on 01-02-2023 Bacteria identified Cx Nom (U) [facility] Urine glucose measurement by automated test strip (mass/volume)Ordered By: Chika Thompson on 01-02-2023 Glucose Auto test strip (U) [Mass/Vol] Normal mg/dL Normal [facility] Urine hemoglobin detection b y automated test stripOrdered By: Chika Thompson on 01-02-2023 Hemoglobin Auto test strip Ql (U) Negative Negative [facility] Urine leukocyte esterase det ection by automated test stripOrdered By: Chika Topetegisselle on 01-02-2023 Leukocyte esterase Auto test strip Ql (U) 3+ Negative [facility] Urobilinogen Auto test strip (U) [Mass/Vol]Ordered By: Chika Topetegisselle on 01-02-2023 Urobilinogen (U) [Mass/Vol] Normal mg/dL Normal [facility] WBC Auto (Bld) [#/Vol]Ordere d By: Chika Saundra on 01-02-2023 WBC (Bld) [#/Vol] 14.1 10*3/uL 4.5-13.5 [facility] pH Auto test strip (U)Ordere d By: Chika Saundra on 01-02-2023 pH (U) 6.0 [pH] 5.0-9.0 [facility] CULTURE URINEon 01-01-2023 CULTURE URINE Culture Observations : LIGHT GROWTH OF MIXED GENITAL JORI. NO POTENTIAL PATHOGENS SEEN. Normal [facility] Comment on above: Performed By: #### U RCX #### [facility] Laboratory [address] [address] [address] Dacia Ackerman [facility]on SARS-CoV-2 (COVID-19) RNA JANAK+probe Ql (Unsp spec) Not detected Normal NOT DETECTED [facility] Comment on above: Result Comment: When [...] for this test is supported by the [place] of Health and Human Service's declaration that [...] used). Performed By: #### C VDTBH #### [facility] [address] [place] [address] Dr. Dacia Ackerman DRUG SCREEN RAPID (URINE)on 01-01-2023 AMP Negative Normal NEGATIVE [facility] Comment on above: Performed By: #### D RUGRPD #### [facility] [address] [place] [address] Dr. Dacia Ackerman BAR Negative Normal NEGATIVE [facility] Comment on above: Performed By: #### D RUGRPD #### [facility] [address] [place] [address] Dr. Dacia Ackerman BUP Negative Normal NEGATIVE [facility] Comment on above: Performed By: #### D RUGRPD #### [facility] [address] [place] [address] Dr. Dacia Ackerman BZO Negative Normal NEGATIVE [facility] Comment on above: Performed By: #### D RUGRPD #### [facility] [address] [place] [address] Dr. Dacia Ackerman MELINA Negative Normal NEGATIVE [facility] Comment on above: Performed By: #### D RUGRPD #### [facility] [address] [place] [address] Dr. Dacia Ackerman CUT-OFFS SEE BELOW Normal [facility] Comment on above: Result Comment: AMP [...] ng/mL Performed By: #### D RUGRPD #### [facility] [address] [address] [address] Dacia Ackerman DRUG CUT HEADER DRUG CLASS TEST SYST EM CUT-OFF CONCENTRATIONS ARE FOLLOWS: Normal [facility] Comment on above: Performed By: #### D RUGRPD #### [facility] [address] [place] [address] Dr. Dacia Ackerman mAMP Negative Normal NEGATIVE [facility] Comment on above: Performed By: #### D RUGRPD #### [facility] [address] [place] [address] Dr. Dacia Ackerman MTD Negative Normal NEGATIVE [facility] Comment on above: Performed By: #### D RUGRPD #### [facility] [address] [place] [address] Dr. Dacia Ackerman OPI Negative Normal NEGATIVE [facility] Comment on above: Performed By: #### D RUGRPD #### [facility] [address] [place] [address] Dr. Dacia Ackerman OXY Negative Normal NEGATIVE [facility] Comment on above: Performed By: #### D RUGRPD #### [facility] [address] [place] [address] Dr. Dacia Ackerman PCP Negative Normal NEGATIVE [facility] Comment on above: Performed By: #### D RUGRPD #### [facility] [address] [place] [address] Dr. Dacia Ackerman PPX Negative Normal NEGATIVE [facility] Comment on above: Performed By: #### D RUGRPD #### [facility] [address] [place] [address] Dr. Dacia Ackerman TCA Negative Normal NEGATIVE [facility] Comment on above: Performed By: #### D RUGRPD #### [facility] [address] [place] [address] Dr. Dacia Ackerman THC Positive Abnormal NEGATIVE [facility] Comment on above: Performed By: #### D RUGRPD #### [facility] [address] [place] [address] Dr. Dacia Ackerman ER URINE PROFILEon 3 Bilirubin Ql (U) SMALL Abnormal NEGATIVE [facility] Comment on above: Performed By: #### P REGU, ERUR, UMICRO #### [facility] [address] [address] [address] Dacia Ackerman Clarity (U) CLEAR Normal CLEAR [facility] Comment on above: Performed By: #### P REGU, ERUR, UMICRO #### [facility] [address] [address] [address] Dacia Ackerman Color (U) YELLOW Normal YELLOW [facility] Comment on above: Performed By: #### P REGU, ERUR, UMICRO #### [facility] [address] [address] [address] Dacia OLIVAS A micrscopic examina tion will be performed if indicated. Normal [facility] Comment on above: Performed By: #### P REGU, ERUR, UMICRO #### [facility] [address] [address] [address] Dacia Ackerman Glucose Ql (U) Negative Normal NEGATIVE [facility] Comment on above: Performed By: #### P REGU, ERUR, UMICRO #### [facility] [address] [address] [address] Dacia Ackerman Hemoglobin Ql (U) Negative Normal NEGATIVE [facility] Comment on above: Performed By: #### P REGU, ERUR, UMICRO #### [facility] [address] [address] [address] Dacia Ackerman Ketones Ql (U) >=80 Abnormal NEGATIVE [facility] Comment on above: Performed By: #### P REGU, ERUR, UMICRO #### [facility] [address] [address] [address] Dacia Ackerman LEUKOCYTES TRACE Abnormal NEGATIVE [facility] Comment on above: Performed By: #### P REGU, ERUR, UMICRO #### [facility] [address] [address] [address] Dacia Ackerman Nitrite Ql (U) Negative Normal NEGATIVE [facility] Comment on above: Performed By: #### P REGU, ERUR, UMICRO #### [facility] [address] [place] [address] Dr. Dacia Ackerman pH (U) 7.5 [pH] Normal 5-9 [facility] Comment on above: Performed By: #### P REGU, ERUR, UMICRO #### [facility] [address] [place] [address] Dr. Dacia Ackerman Protein (U) [Mass/Vol] 100 mg/dL Abnormal NEGAT JOAO/ TRACE [facility] Comment on above: Performed By: #### P REGU, ERUR, UMICRO #### [facility] [address] [place] [address] Dr. Dacia Ackerman SPEC GRAVITY 1.020 Normal 1.005-<=1. 025 [facility] Comment on above: Performed By: #### P REGU ERUR, UMICRO #### [facility] [address] [place] [address] Dr. Dacia Ackerman UR MICRO IND INDICATED Normal [facility] Comment on above: Performed By: #### P REGU, ERUR, UMICRO #### [facility] [address] [place] [address] Dr. Dacia Ackerman Urobilinogen Qn (U) 1.0 {Kaykay'U}/dL Normal 0.2 - 1. 0 [facility] Comment on above: Performed By: #### P REGU, ERUR, UMICRO #### [facility] [address] [place] [address] Dr. Dacia Ackerman INFLUENZA A AND B AGon 01-01 INFLUANEGH SEE BELOW Normal [facility] Comment on above: Result Comment: Nega tive for Flu A protein angiten. Infection due to Flu A cannot be ruled out. Flu A angiten in the sample may be below the detection limit of the test. Performed By: #### I NFLUAB #### [facility] [address] [place] [address] Dr. Dacia Ackerman INFLUBNEGH SEE BELOW Normal [facility] Comment on above: Result Comment: Nega tive for Flu B protein antigen. Infection due to Flu B cannot be ruled out. Flu B antigen in the sample may be below the detection limit of the test. Performed By: #### I NFLUAB #### [facility] [address] [place] [address] Dr. Dacia Ackerman INFLUENZA A AG Negative Normal NEGATIVE SEE COMMENT [facility] Comment on above: Performed By: #### I NFLUAB #### [facility] [address] [place] [address] Dr. Dacia Ackerman INFLUENZA B AG Negative Normal NEGATIVE SEE COMMENT [facility] Comment on above: Performed By: #### I NFLUAB #### [facility] [address] [place] [address] Dr. Dacia Ackerman URon 01-01-2023 , QUAL Negative Normal NEGATIVE [facility] Comment on above: Performed By: #### P REGU, ERUR, UMICRO #### [facility] [address] [place] [address] Dr. Dacia Ackerman URINE MICROSCOPIC ONLYon BACTERIA MODERATE Abnormal NONE SEEN [facility] Comment on above: Performed By: #### P REGU, ERUR, UMICRO #### [facility] [address] [place] [address] Dr. Dacia Ackerman Bacteria identified Cx Nom (U) INDICATED Normal [facility] Comment on above: Performed By: #### P REGU, ERUR, UMICRO #### [facility] [address] [place] [address] Dr. Dacia Ackerman CAST NONE SEEN Normal NONE SEEN [facility] Comment on above: Performed By: #### P REGU, ERUR, UMICRO #### [facility] [address] [place] [address] Dr. Dacia Ackerman Crystals LM Nom (Urine sed) NONE SEEN Normal NONE SEEN [facility] Comment on above: Performed By: #### P REGU, ERUR, UMICRO #### [facility] [address] [place] [address] Dr. Dacia Ackerman Epithelial cells LM Ql (Urine sed) MANY Abnormal NONE SEEN /RARE [facility] Comment on above: Performed By: #### P REGU, ERUR, UMICRO #### [facility] [address] [address] [address] Dacia Ackerman MUCOUS SMALL Abnormal NONE SEEN [facility] Comment on above: Performed By: #### P REGU, ERUR, UMICRO #### [facility] [address] [place], [place] [address] Dr. Dacia Ackerman RBC NONE SEEN Abnormal 0-2 [facility] Comment on above: Performed By: #### P REGU, ERUR, UMICRO #### [facility] [address] [address] [address] Dacia Ackerman WBC 5-10 Abnormal NONE SEEN [facility] Comment on above: Performed By: #### P REGU, ERUR, UMICRO #### [facility] [address] [address] [address] Dacia Ackerman XR CHEST 1 Von [...] KIA ARVIZU Date: 2023-01-01 13:00 Normal [facility] Automated erythrocytes count in urine sediment (number/area)Ordered By: Federico Randolph on 12-31-2022 RBC Auto (Urine sed) [#/Area] 0-1 [HPF] 0-4 [facility] Automated leukocytes count i n urine sediment (number/area)Ordered By: Federico Randolph on 12-31-2022 WBC Auto (Urine sed) [#/Area] 20-49 [HPF] 0-4 [facility] Bacteria identified Cx Nom ( U)Ordered By: Federico Randolph on 12-31-2022 Urine culture routine Staphylococcus epidermidis [facility] Bilirubin Test strip Ql (U)O rdered By: Federico Randolph on 12-31-2022 Bilirubin Ql (U) Negative Negative [facility] COVID-19 SOFIAOrdered By: Deep Randolph on 12-31-2022 SARS-CoV+SARS-CoV-2 (COVID-19) Ag IA.rapid Ql (Resp) Negative Negative [facility] Casts typing in urine sedime nt by light microscopyOrdered By: Federico Randolph on 12-31-2022 Casts LM Nom (Urine sed) None seen [LPF] None Seen [facility] Color Auto (U)Ordered By: Deep Randolph on 12-31-2022 Color (U) Yellow Yellow [facility] HCG ( test) IA.rapi d Ql (U)Ordered By: Federico Randolph on 12-31-2022 HCG ( test) Ql (U) Negative [facility] Influenza virus A and B anti gen detection by immunoassayOrdered By: Federico Randolph on 12-31-2022 FLUAV+FLUBV Ag IA Ql (Unsp spec) [facility] Ketones Auto test strip (U) [Mass/Vol]Ordered By: Federico Randolph on 12-31-2022 Ketones (U) [Mass/Vol] 3+ Negative [facility] Nitrite Test strip Ql (U)Ord ered By: Federico Randolph on 12-31-2022 Nitrite Ql (U) Negative Negative [facility] No Panel InformationOrdered By: Federico Randolph on 12-31-2022 None seen [LPF] 0-8 [facility] Protein Auto test strip (U) [Mass/Vol]Ordered By: Federico Randolph on 12-31-2022 Protein (U) [Mass/Vol] 100 mg/dL Negative [facility] Specific gravity Auto test s trip (U) [Rel density]Ordered By: Federico Randolph on 12-31-2022 Specific gravity (U) [Rel density] 1.026 1.001-1.03 0 [facility] Squamous epithelial cells de tection in urine sediment by light microscopyOrdered By: Federico Randolph on 12-31-2022 Epithelial cells.squamous LM Ql (Urine sed) Innumerable [HPF] 0-2 [facility] Urine bacteria detection by automated methodOrdered By: Federico Randolph on 12-31-2022 Bacteria Auto Ql (U) 3+ None Seen [facility] Urine clarity by refractomet ry automatedOrdered By: Federico Randolph on 12-31-2022 Clarity Refractometry automated (U) Turbid Clear [facility] Urine glucose measurement by automated test strip (mass/volume)Ordered By: Federico Randolph on 12-31-2022 Glucose Auto test strip (U) [Mass/Vol] Normal mg/dL Normal [facility] Urine hemoglobin detection b y automated test stripOrdered By: Federico Randolph on 12-31-2022 Hemoglobin Auto test strip Ql (U) Negative Negative [facility] Urine leukocyte esterase det ection by automated test stripOrdered By: Federico Randolph on 12-31-2022 Leukocyte esterase Auto test strip Ql (U) 2+ Negative [facility] Urobilinogen Auto test strip (U) [Mass/Vol]Ordered By: Federico Randolph on 12-31-2022 Urobilinogen (U) [Mass/Vol] Normal mg/dL Normal [facility] pH Auto test strip (U)Ordere d By: Federico Randolph on 12-31-2022 pH (U) [pH] 5.0-9.0 [facility] Amphetamine Screen Ql (U)Ord ered By: Dixon Newberry on 11-09-2022 Amphetamines Ql (U) Negative Negative [facility] Barbiturates [Presence] in U rineOrdered By: Dixon Newberry on 11-09-2022 Barbiturates Ql (U) Negative Negative [facility] Basophils Auto (Bld) [#/Vol] Ordered By: Dixon Newberry on 11-09-2022 Basophils (Bld) [#/Vol] 0.0 10*3/uL 0.0-0.1 [facility] Basophils/100 WBC Auto (Bld) Ordered By: Dixon Newberry on 11-09-2022 Basophils/100 WBC (Bld) 0.3 % . [facility] Benzodiazepines [Presence] i n UrineOrdered By: Dixon Newberry on 11-09-2022 Benzodiazepines Ql (U) Negative Negative [facility] Bilirubin Test strip Ql (U)O rdered By: Dixon Newberry on 11-09-2022 Bilirubin Ql (U) Negative Negative [facility] Body fluid albumin measureme nt (mass/volume)Ordered By: Dixon Newberry on 11-09-2022 Albumin (Body fld) [Mass/Vol] 4.2 g/dL 3.2-5.5 [facility] Cannabinoids [Presence] in U rine by Screen methodOrdered By: Dixon Newberry on 11-09-2022 Cannabinoids Screen Ql (U) Positive Negative [facility] Color Auto (U)Ordered By: Nzaia Newberry on 11-09-2022 Color (U) Yellow Yellow [facility] Eosinophils Auto (Bld) [#/Vo l]Ordered By: Dixon Newberry on 11-09-2022 Eosinophils (Bld) [#/Vol] 0.1 10*3/uL 0.0-0.7 [facility] Eosinophils/100 WBC Auto (Bl d)Ordered By: Dixon Newberry on 11-09-2022 Eosinophils/100 WBC (Bld) 0.8 % . [facility] Erythrocyte distribution wid th Auto (RBC) [Ratio]Ordered By: Dixon Newberry on 11-09-2022 Erythrocyte distribution width (RBC) [Ratio] 13.8 % 11.9-15.3 [facility] Estimated glomerular filtrat ion rate (GFR) non- AmericanOrdered By: Dixon Newberry on 11-09-2022 GFR/1.73 sq M.predicted among non-blacks MDRD (S/P/Bld) [Vol rate/Area] > 60 mL/Min [facility] Globulin Calc (S) [Mass/Vol] Ordered By: Dixon Newberry on 11-09-2022 Globulin (S) [Mass/Vol] 2.4 g/dL [facility] HCG ( test) IA.rapi d Ql (U)Ordered By: Dixon Newberry on 11-09-2022 HCG ( test) Ql (U) Negative [facility] Hematocrit Auto (Bld) [Volum e fraction]Ordered By: Dixon Newberry on 11-09-2022 Hematocrit (Bld) [Volume fraction] 41.0 % 36.0-46.0 [facility] Hemoglobin [Mass/volume] in BloodOrdered By: Dxion Newberry on 11-09-2022 Hemoglobin (Bld) [Mass/Vol] 13.4 g/dL 12.0-16.0 [facility] Ketones Auto test strip (U) [Mass/Vol]Ordered By: Dixon Newberry on 11-09-2022 Ketones (U) [Mass/Vol] Negative Negative [facility] Leukocytes [#/volume] correc venkata for nucleated erythrocytes in Blood by Automated counOrdered By: Dixon Newberry on 11-09-2022 WBC corrected for nucl RBC Auto (Bld) [#/Vol] 11.7 10*3/uL 4.5-13.5 [facility] Lymphocytes Auto (Bld) [#/Vo l]Ordered By: Dixon Newberry on 11-09-2022 Lymphocytes (Bld) [#/Vol] 1.4 10*3/uL 1.20-4.8 [facility] Lymphocytes/100 WBC Auto (Bl d)Ordered By: Dixon Newberry on 11-09-2022 Lymphocytes/100 WBC (Bld) 12.1 % . [facility] MCH Auto (RBC) [Entitic mass ]Ordered By: Dixon Newberry on 11-09-2022 MCH (RBC) [Entitic mass] 28.1 pg 25.0-35.0 [facility] MCHC Auto (RBC) [Mass/Vol]Or dered By: Dixon Newberry on 11-09-2022 MCHC (RBC) [Mass/Vol] 32.8 g/dL 31.0-37.0 [facility] MCV Auto (RBC) [Entitic vol] Ordered By: Dixon Newberry on 11-09-2022 MCV (RBC) [Entitic vol] 85.7 fL 78-102 [facility] Monocyte distribution width [Entitic volume] in Blood by AutomatedOrdered By: Dixon Newberry on 11-09-2022 Monocyte distribution width Auto (Bld) [Entitic vol] 16.08 % 0.00-20.00 [facility] Monocytes Auto (Bld) [#/Vol] Ordered By: Dixon Newberry on 11-09-2022 Monocytes (Bld) [#/Vol] 0.5 10*3/uL 0.1-1.00 [facility] Monocytes/100 WBC Auto (Bld) Ordered By: Dixon Newberry on 11-09-2022 Monocytes/100 WBC (Bld) 4.7 % . [facility] Neutrophils Auto (Bld) [#/Vo l]Ordered By: Dixon Newberry on 11-09-2022 Neutrophils (Bld) [#/Vol] 9.6 10*3/uL 1.2-7.7 [facility] Neutrophils/100 WBC Auto (Bl d)Ordered By: Dixon Newberry on 11-09-2022 Neutrophils/100 WBC (Bld) 82.1 % . [facility] Nitrite Test strip Ql (U)Ord ered By: Dixon Newberry on 11-09-2022 Nitrite Ql (U) Negative Negative [facility] No Panel InformationOrdered By: Dixon Newberry on 11-09-2022 Negative Negative [facility] > 60 mL/Min [facility] 118.86 [facility] Nucleated erythrocytes [Pres ence] in Blood by Automated countOrdered By: Dixon Newberry on 11-09-2022 Nucleated RBC Auto Ql (Bld) 0.1 /100{WBC} 0-0.5 [facility] Phencyclidine Screen Ql (U)O rdered By: Dixon Newberry on 11-09-2022 Phencyclidine Ql (U) Negative Negative [facility] Platelet mean volume Auto (B ld) [Entitic vol]Ordered By: Dixon Newberry on 11-09-2022 Platelet mean volume (Bld) [Entitic vol] 8.5 fL 6.3-10.7 [facility] Platelets Auto (Bld) [#/Vol] Ordered By: Dixon Newberry on 11-09-2022 Platelets (Bld) [#/Vol] 274 10*3/uL 150-450 [facility] Protein Auto test strip (U) [Mass/Vol]Ordered By: Dixon Newberry on 11-09-2022 Protein (U) [Mass/Vol] Negative Negative [facility] Protein [Mass/volume] in Ser um or PlasmaOrdered By: Dixon Newberry on 11-09-2022 Protein [Mass/Vol] 6.6 g/dL 6.1-7.9 [facility] RBC Auto (Bld) [#/Vol]Ordere d By: Dixon Newberry on 11-09-2022 RBC (Bld) [#/Vol] 4.78 10*6/uL 4.10-5.10 [facility] Serum or plasma alanine florez otransferase measurement without P-5'-P (enzymatic activiOrdered By: Dixon Newberry on 11-09-2022 ALT No additional P-5'-P [Catalytic activity/Vol] 67 U/L 10-60 [facility] Serum or plasma albumin/glob ulin mass ratioOrdered By: Dixon Newberry on 11-09-2022 Albumin/Globulin [Mass ratio] 1.8 {ratio} [facility] Serum or plasma alkaline justin sphatase measurement (enzymatic activity/volume)Ordered By: Dixon Newberry on 11-09-2022 ALP [Catalytic activity/Vol] 59 U/L 32-92 [facility] Serum or plasma anion gap de terminationOrdered By: Dixon Newberry on 11-09-2022 Anion gap [Moles/Vol] 19.7 mmol/L 6.0-15.0 [facility] Serum or plasma aspartate am inotransferase measurement (enzymatic activity/volume)Ordered By: Dixon Newberry on 11-09-2022 AST [Catalytic activity/Vol] 48 U/L 10-42 [facility] Serum or plasma calcium tammy urement (mass/volume)Ordered By: Dixon Newberry on 11-09-2022 Calcium [Mass/Vol] 9.6 mg/dL 8.2-10.2 [facility] Serum or plasma chloride judy surement (moles/volume)Ordered By: Dixon Newberry on 11-09-2022 Chloride [Moles/Vol] 98 mmol/L 95-114 [facility] Serum or plasma creatinine m easurement with calculation of estimated glomerular filtrOrdered By: Dixon Newberry on 11-09-2022 Creatinine and Glomerular filtration rate.predicted panel (S/P/Bld) 0.76 mg/dL 0.44-1.03 [facility] Serum or plasma glucose tammy urement (mass/volume)Ordered By: Dixon Newberry on 11-09-2022 Glucose [Mass/Vol] 110 mg/dL 70-100 [facility] Serum or plasma potassium me asurement (moles/volume)Ordered By: Dixon Newberry on 11-09-2022 Potassium [Moles/Vol] 3.4 mmol/L 3.5-5.1 [facility] Serum or plasma sodium measu rement (moles/volume)Ordered By: Dixon Newberry on 11-09-2022 Sodium [Moles/Vol] 137 mmol/L 136-146 [facility] Serum or plasma total biliru bin measurement (mass/volume)Ordered By: Dixon Newberry on 11-09-2022 Bilirubin [Mass/Vol] 0.5 mg/dL 0.3-1.2 [facility] Serum or plasma total carbon dioxide measurement (moles/volume)Ordered By: Dixon Newberry on 11-09-2022 CO2 [Moles/Vol] 22.7 mmol/L 22.0-30.0 [facility] Serum or plasma urea nitroge n measurement (mass/volume)Ordered By: Dixon Newberry on 11-09-2022 Urea nitrogen [Mass/Vol] 3 mg/dL 9-23 [facility] Specific gravity Auto test s trip (U) [Rel density]Ordered By: Dixon Newberry on 11-09-2022 Specific gravity (U) [Rel density] 1.009 1.001-1.03 0 [facility] Urine clarity by refractomet ry automatedOrdered By: Dixon Newberry on 11-09-2022 Clarity Refractometry automated (U) Clear Clear [facility] Urine cocaine detectionOrder ed By: Dixon Newberry on 11-09-2022 Cocaine Ql (U) Negative Negative [facility] Urine glucose measurement by automated test strip (mass/volume)Ordered By: Dixon Newberry on 11-09-2022 Glucose Auto test strip (U) [Mass/Vol] Normal mg/dL Normal [facility] Urine hemoglobin detection b y automated test stripOrdered By: Dixon Newberry on 11-09-2022 Hemoglobin Auto test strip Ql (U) Negative Negative [facility] Urine leukocyte esterase det ection by automated test stripOrdered By: Dixon Newberry on 11-09-2022 Leukocyte esterase Auto test strip Ql (U) Negative Negative [facility] Urobilinogen Auto test strip (U) [Mass/Vol]Ordered By: Dixon Newberry on 11-09-2022 Urobilinogen (U) [Mass/Vol] Normal mg/dL Normal [facility] WBC Auto (Bld) [#/Vol]Ordere d By: Dixon Newberry on 11-09-2022 WBC (Bld) [#/Vol] 11.7 10*3/uL 4.5-13.5 [facility] pH Auto test strip (U)Ordere d By: Dixon Newberry on 11-09-2022 pH (U) [pH] 5.0-9.0 [facility] Albumin [Mass/volume] in Ser um or PlasmaOrdered By: Art Bianchi on 11-07-2022 Albumin [Mass/Vol] 4.6 g/dL 3.2-5.5 [facility] Automated erythrocytes count in urine sediment (number/area)Ordered By: Art Bianchi on 11-07-2022 RBC Auto (Urine sed) [#/Area] 0-1 [HPF] 0-4 [facility] Automated leukocytes count i n urine sediment (number/area)Ordered By: Art Bianchi on 11-07-2022 WBC Auto (Urine sed) [#/Area] 3-4 [HPF] 0-4 [facility] Basophils Auto (Bld) [#/Vol] Ordered By: Art Bianchi on 11-07-2022 Basophils (Bld) [#/Vol] 0.1 10*3/uL 0.0-0.1 [facility] Basophils/100 WBC Auto (Bld) Ordered By: Art Bianchi on 11-07-2022 Basophils/100 WBC (Bld) 1.0 % . [facility] Bilirubin Test strip Ql (U)O rdered By: Art Bianchi on 11-07-2022 Bilirubin Ql (U) Negative Negative [facility] Color Auto (U)Ordered By: Adrian Bianchi on 11-07-2022 Color (U) Yellow Yellow [facility] Eosinophils Auto (Bld) [#/Vo l]Ordered By: Art Bianchi on 11-07-2022 Eosinophils (Bld) [#/Vol] 0.1 10*3/uL 0.0-0.7 [facility] Eosinophils/100 WBC Auto (Bl d)Ordered By: Art Bianchi on 11-07-2022 Eosinophils/100 WBC (Bld) 1.2 % . [facility] Erythrocyte distribution wid th Auto (RBC) [Ratio]Ordered By: Art Bianchi on 11-07-2022 Erythrocyte distribution width (RBC) [Ratio] 14.0 % 11.9-15.3 [facility] Estimated glomerular filtrat ion rate (GFR) non- AmericanOrdered By: Art Bianchi on 11-07-2022 GFR/1.73 sq M.predicted among non-blacks MDRD (S/P/Bld) [Vol rate/Area] > 60 mL/Min [facility] Globulin Calc (S) [Mass/Vol] Ordered By: Art Bianchi on 11-07-2022 Globulin (S) [Mass/Vol] 2.7 g/dL [facility] HCG ( test) IA.rapi d Ql (U)Ordered By: Art Bianchi on 11-07-2022 HCG ( test) Ql (U) Negative [facility] Hematocrit Auto (Bld) [Volum e fraction]Ordered By: Art Bianchi on 11-07-2022 Hematocrit (Bld) [Volume fraction] 43.2 % 36.0-46.0 [facility] Hemoglobin [Mass/volume] in BloodOrdered By: Art Bianchi on 11-07-2022 Hemoglobin (Bld) [Mass/Vol] 14.8 g/dL 12.0-16.0 [facility] Ketones Auto test strip (U) [Mass/Vol]Ordered By: Art Bianchi on 11-07-2022 Ketones (U) [Mass/Vol] 1+ [facility] Leukocytes [#/volume] correc venkata for nucleated erythrocytes in Blood by Automated counOrdered By: Art Bianchi on 11-07-2022 WBC corrected for nucl RBC Auto (Bld) [#/Vol] 10.3 10*3/uL 4.5-13.5 [facility] Lymphocytes Auto (Bld) [#/Vo l]Ordered By: Art Bianchi on 11-07-2022 Lymphocytes (Bld) [#/Vol] 2.1 10*3/uL 1.20-4.8 [facility] Lymphocytes/100 WBC Auto (Bl d)Ordered By: Art Bianchi on 11-07-2022 Lymphocytes/100 WBC (Bld) 20.8 % . [facility] MCH Auto (RBC) [Entitic mass ]Ordered By: Art Bianchi on 11-07-2022 MCH (RBC) [Entitic mass] 28.8 pg 25.0-35.0 [facility] MCHC Auto (RBC) [Mass/Vol]Or dered By: Art Bianchi on 11-07-2022 MCHC (RBC) [Mass/Vol] 34.3 g/dL 31.0-37.0 [facility] MCV Auto (RBC) [Entitic vol] Ordered By: Art Bianchi on 11-07-2022 MCV (RBC) [Entitic vol] 84.1 fL 78-102 [facility] Monocyte distribution width [Entitic volume] in Blood by AutomatedOrdered By: Art Bianchi on 11-07-2022 Monocyte distribution width Auto (Bld) [Entitic vol] 17.07 % 0.00-20.00 [facility] Monocytes Auto (Bld) [#/Vol] Ordered By: Art Bianchi on 11-07-2022 Monocytes (Bld) [#/Vol] 0.8 10*3/uL 0.1-1.00 [facility] Monocytes/100 WBC Auto (Bld) Ordered By: Art Bianchi on 11-07-2022 Monocytes/100 WBC (Bld) 8.1 % . [facility] Neutrophils Auto (Bld) [#/Vo l]Ordered By: Art Bianchi on 11-07-2022 Neutrophils (Bld) [#/Vol] 7.1 10*3/uL 1.2-7.7 [facility] Neutrophils/100 WBC Auto (Bl d)Ordered By: Art Bianchi on 11-07-2022 Neutrophils/100 WBC (Bld) 68.9 % . [facility] Nitrite Test strip Ql (U)Ord ered By: Art Bianchi on 11-07-2022 Nitrite Ql (U) Negative Negative [facility] No Panel InformationOrdered By: Art Bianchi on 11-07-2022 0-8 [LPF] 0-8 [facility] > 60 mL/Min [facility] 43.0 U/L 22-51 [facility] 104.35 [facility] Nucleated erythrocytes [Pres ence] in Blood by Automated countOrdered By: Art Bianchi on 11-07-2022 Nucleated RBC Auto Ql (Bld) 0.3 /100{WBC} 0-0.5 [facility] Platelet mean volume Auto (B ld) [Entitic vol]Ordered By: Art Bianchi on 11-07-2022 Platelet mean volume (Bld) [Entitic vol] 8.4 fL 6.3-10.7 [facility] Platelets Auto (Bld) [#/Vol] Ordered By: Art Bianchi on 11-07-2022 Platelets (Bld) [#/Vol] 308 10*3/uL 150-450 [facility] Protein Auto test strip (U) [Mass/Vol]Ordered By: Art Bianchi on 11-07-2022 Protein (U) [Mass/Vol] Trace mg/dL Negative [facility] Protein [Mass/volume] in Ser um or PlasmaOrdered By: Art Bianchi on 11-07-2022 Protein [Mass/Vol] 7.3 g/dL 6.1-7.9 [facility] RBC Auto (Bld) [#/Vol]Ordere d By: Art Bianchi on 11-07-2022 RBC (Bld) [#/Vol] 5.14 10*6/uL 4.10-5.10 [facility] Serum or plasma alanine florez otransferase measurement without P-5'-P (enzymatic activiOrdered By: Art Bianchi on 11-07-2022 ALT No additional P-5'-P [Catalytic activity/Vol] 24 U/L 10-60 [facility] Serum or plasma albumin/glob ulin mass ratioOrdered By: Art Bianchi on 11-07-2022 Albumin/Globulin [Mass ratio] 1.7 {ratio} [facility] Serum or plasma alkaline justin sphatase measurement (enzymatic activity/volume)Ordered By: Art Bianchi on 11-07-2022 ALP [Catalytic activity/Vol] 60 U/L 32-92 [facility] Serum or plasma anion gap de terminationOrdered By: Art Bianchi on 11-07-2022 Anion gap [Moles/Vol] 12.2 mmol/L 6.0-15.0 [facility] Serum or plasma aspartate am inotransferase measurement (enzymatic activity/volume)Ordered By: Art Bianchi on 11-07-2022 AST [Catalytic activity/Vol] 25 U/L 10-42 [facility] Serum or plasma calcium tammy urement (mass/volume)Ordered By: Art Bianchi on 11-07-2022 Calcium [Mass/Vol] 9.6 mg/dL 8.2-10.2 [facility] Serum or plasma chloride judy surement (moles/volume)Ordered By: Art Bianchi on 11-07-2022 Chloride [Moles/Vol] 98 mmol/L 95-114 [facility] Serum or plasma creatinine m easurement with calculation of estimated glomerular filtrOrdered By: Art Bianchi on 11-07-2022 Creatinine and Glomerular filtration rate.predicted panel (S/P/Bld) 0.84 mg/dL 0.44-1.03 [facility] Serum or plasma glucose tammy urement (mass/volume)Ordered By: Art Bianchi on 11-07-2022 Glucose [Mass/Vol] 106 mg/dL 70-100 [facility] Serum or plasma potassium me asurement (moles/volume)Ordered By: Art Bianchi on 11-07-2022 Potassium [Moles/Vol] 3.2 mmol/L 3.5-5.1 [facility] Serum or plasma sodium measu rement (moles/volume)Ordered By: Art Bianchi on 11-07-2022 Sodium [Moles/Vol] 132 mmol/L 136-146 [facility] Serum or plasma total biliru bin measurement (mass/volume)Ordered By: Art Bianchi on 11-07-2022 Bilirubin [Mass/Vol] 0.8 mg/dL 0.3-1.2 [facility] Serum or plasma total carbon dioxide measurement (moles/volume)Ordered By: Art Bianchi on 11-07-2022 CO2 [Moles/Vol] 25.0 mmol/L 22.0-30.0 [facility] Serum or plasma urea nitroge n measurement (mass/volume)Ordered By: Art Bianchi on 11-07-2022 Urea nitrogen [Mass/Vol] 6 mg/dL 9-23 [facility] Specific gravity Auto test s trip (U) [Rel density]Ordered By: Art Bianchi on 11-07-2022 Specific gravity (U) [Rel density] 1.014 1.001-1.03 0 [facility] Squamous epithelial cells de tection in urine sediment by light microscopyOrdered By: Art Bianchi on 11-07-2022 Epithelial cells.squamous LM Ql (Urine sed) 5-9 [HPF] 0-2 [facility] Urine bacteria detection by automated methodOrdered By: Art Bianchi on 11-07-2022 Bacteria Auto Ql (U) None seen None Seen [facility] Urine clarity by refractomet ry automatedOrdered By: Art Bianchi on 11-07-2022 Clarity Refractometry automated (U) Clear Clear [facility] Urine glucose measurement by automated test strip (mass/volume)Ordered By: Atr Bianchi on 11-07-2022 Glucose Auto test strip (U) [Mass/Vol] Normal mg/dL Normal [facility] Urine hemoglobin detection b y automated test stripOrdered By: Art Bianchi on 11-07-2022 Hemoglobin Auto test strip Ql (U) Negative Negative [facility] Urine leukocyte esterase det ection by automated test stripOrdered By: Art Bianchi on 11-07-2022 Leukocyte esterase Auto test strip Ql (U) Negative Negative [facility] Urobilinogen Auto test strip (U) [Mass/Vol]Ordered By: Art Bianchi on 11-07-2022 Urobilinogen (U) [Mass/Vol] Normal mg/dL Normal [facility] WBC Auto (Bld) [#/Vol]Ordere d By: Art Bianchi on 11-07-2022 WBC (Bld) [#/Vol] 10.3 10*3/uL 4.5-13.5 [facility] pH Auto test strip (U)Ordere d By: Art Bianchi on 11-07-2022 pH (U) 8.5 [pH] 5.0-9.0 [facility] Urine culture routineOrdered By: Colten Fry on 11-04-2022 Bacteria identified Cx Nom (U) 2 Days [facility] Albumin [Mass/volume] in Ser um or PlasmaOrdered By: Colten Fry on 11-02-2022 Albumin [Mass/Vol] 4.8 g/dL 3.2-5.5 [facility] Amphetamine Screen Ql (U)Ord ered By: Colten Fry on 11-02-2022 Amphetamines Ql (U) Negative Negative [facility] Automated erythrocytes count in urine sediment (number/area)Ordered By: Colten Fry on 11-02-2022 RBC Auto (Urine sed) [#/Area] 20-49 [HPF] 0-4 [facility] Automated leukocytes count i n urine sediment (number/area)Ordered By: Colten Fry on 11-02-2022 WBC Auto (Urine sed) [#/Area] 5-9 [HPF] 0-4 [facility] Barbiturates [Presence] in U rineOrdered By: Colten Fry on 11-02-2022 Barbiturates Ql (U) Negative Negative [facility] Basophils Auto (Bld) [#/Vol] Ordered By: Colten Fry on 11-02-2022 Basophils (Bld) [#/Vol] 0.1 10*3/uL 0.0-0.1 [facility] Basophils/100 WBC Auto (Bld) Ordered By: Colten Fry on 11-02-2022 Basophils/100 WBC (Bld) 0.5 % . [facility] Benzodiazepines [Presence] i n UrineOrdered By: Colten Fry on 11-02-2022 Benzodiazepines Ql (U) Negative Negative [facility] Bilirubin Test strip Ql (U)O rdered By: Colten Fry on 11-02-2022 Bilirubin Ql (U) Negative Negative [facility] Cannabinoids [Presence] in U rine by Screen methodOrdered By: Colten Fry on 11-02-2022 Cannabinoids Screen Ql (U) Positive Negative [facility] Color Auto (U)Ordered By: Vida Fry on 11-02-2022 Color (U) Yellow Yellow [facility] Eosinophils Auto (Bld) [#/Vo l]Ordered By: Colten Fry on 11-02-2022 Eosinophils (Bld) [#/Vol] 0.3 10*3/uL 0.0-0.7 [facility] Eosinophils/100 WBC Auto (Bl d)Ordered By: Colten Fry on 11-02-2022 Eosinophils/100 WBC (Bld) 2.1 % . [facility] Erythrocyte distribution wid th Auto (RBC) [Ratio]Ordered By: Colten Fry on 11-02-2022 Erythrocyte distribution width (RBC) [Ratio] 13.7 % 11.9-15.3 [facility] Estimated glomerular filtrat ion rate (GFR) non- AmericanOrdered By: Colten Fry on 11-02-2022 GFR/1.73 sq M.predicted among non-blacks MDRD (S/P/Bld) [Vol rate/Area] > 60 mL/Min [facility] Globulin Calc (S) [Mass/Vol] Ordered By: Colten Fry on 11-02-2022 Globulin (S) [Mass/Vol] 3.1 g/dL [facility] HCG ( test) IA.rapi d Ql (U)Ordered By: Colten Fry on 11-02-2022 HCG ( test) Ql (U) Negative [facility] Hematocrit Auto (Bld) [Volum e fraction]Ordered By: Colten Fry on 11-02-2022 Hematocrit (Bld) [Volume fraction] 45.3 % 36.0-46.0 [facility] Hemoglobin [Mass/volume] in BloodOrdered By: Colten Fry on 11-02-2022 Hemoglobin (Bld) [Mass/Vol] 15.4 g/dL 12.0-16.0 [facility] Ketones Auto test strip (U) [Mass/Vol]Ordered By: Colten Fry on 11-02-2022 Ketones (U) [Mass/Vol] 3+ [facility] Leukocytes [#/volume] correc venkata for nucleated erythrocytes in Blood by Automated counOrdered By: Colten Fry on 11-02-2022 WBC corrected for nucl RBC Auto (Bld) [#/Vol] 11.7 10*3/uL 4.5-13.5 [facility] Lymphocytes Auto (Bld) [#/Vo l]Ordered By: Colten Fry on 11-02-2022 Lymphocytes (Bld) [#/Vol] 2.3 10*3/uL 1.20-4.8 [facility] Lymphocytes/100 WBC Auto (Bl d)Ordered By: Colten Fry on 11-02-2022 Lymphocytes/100 WBC (Bld) 19.6 % . [facility] MCH Auto (RBC) [Entitic mass ]Ordered By: Colten Fry on 11-02-2022 MCH (RBC) [Entitic mass] 28.4 pg 25.0-35.0 [facility] MCHC Auto (RBC) [Mass/Vol]Or dered By: Colten Fry on 11-02-2022 MCHC (RBC) [Mass/Vol] 34.0 g/dL 31.0-37.0 [facility] MCV Auto (RBC) [Entitic vol] Ordered By: Colten Fry on 11-02-2022 MCV (RBC) [Entitic vol] 83.3 fL 78-102 [facility] Monocytes Auto (Bld) [#/Vol] Ordered By: Colten Fry on 11-02-2022 Monocytes (Bld) [#/Vol] 1.0 10*3/uL 0.1-1.00 [facility] Monocytes/100 WBC Auto (Bld) Ordered By: Colten Fry on 11-02-2022 Monocytes/100 WBC (Bld) 8.5 % . [facility] Neutrophils Auto (Bld) [#/Vo l]Ordered By: Colten Fry on 11-02-2022 Neutrophils (Bld) [#/Vol] 8.1 10*3/uL 1.2-7.7 [facility] Neutrophils/100 WBC Auto (Bl d)Ordered By: Colten Fry on 11-02-2022 Neutrophils/100 WBC (Bld) 69.3 % . [facility] Nitrite Test strip Ql (U)Ord ered By: Colten Fry on 11-02-2022 Nitrite Ql (U) Negative Negative [facility] No Panel InformationOrdered By: Colten Fry on 11-02-2022 9-19 [LPF] 0-8 [facility] Negative Negative [facility] > 60 mL/Min [facility] 100.26 [facility] No Panel InformationOrdered By: Robert Henley on 11-02-2022 2.6 mg/dL 1.6-2.6 [facility] Nucleated erythrocytes [Pres ence] in Blood by Automated countOrdered By: Colten Fry on 11-02-2022 Nucleated RBC Auto Ql (Bld) 0.1 /100{WBC} 0-0.5 [facility] Phencyclidine Screen Ql (U)O rdered By: Colten Fry on 11-02-2022 Phencyclidine Ql (U) Negative Negative [facility] Platelet mean volume Auto (B ld) [Entitic vol]Ordered By: Colten Fry on 11-02-2022 Platelet mean volume (Bld) [Entitic vol] 7.9 fL 6.3-10.7 [facility] Platelets Auto (Bld) [#/Vol] Ordered By: Colten Fry on 11-02-2022 Platelets (Bld) [#/Vol] 292 10*3/uL 150-450 [facility] Protein Auto test strip (U) [Mass/Vol]Ordered By: Colten Fry on 11-02-2022 Protein (U) [Mass/Vol] 30 mg[facility]dL [facility] Protein [Mass/volume] in Ser um or PlasmaOrdered By: Colten Fry on 11-02-2022 Protein [Mass/Vol] 7.9 g/dL 6.1-7.9 [facility] RBC Auto (Bld) [#/Vol]Ordere d By: Colten Fry on 11-02-2022 RBC (Bld) [#/Vol] 5.43 10*6/uL 4.10-5.10 [facility] Serum or plasma alanine florez otransferase measurement without P-5'-P (enzymatic activiOrdered By: Colten Fry on 11-02-2022 ALT No additional P-5'-P [Catalytic activity/Vol] 20 U/L 10-60 [facility] Serum or plasma albumin/glob ulin mass ratioOrdered By: Colten Fry on 11-02-2022 Albumin/Globulin [Mass ratio] 1.5 {ratio} [facility] Serum or plasma alkaline justin sphatase measurement (enzymatic activity/volume)Ordered By: Colten Fry on 11-02-2022 ALP [Catalytic activity/Vol] 65 U/L 32-92 [facility] Serum or plasma anion gap de terminationOrdered By: Colten Fry on 11-02-2022 Anion gap [Moles/Vol] 14.6 mmol/L 6.0-15.0 [facility] Serum or plasma aspartate am inotransferase measurement (enzymatic activity/volume)Ordered By: Cloten Fry on 11-02-2022 AST [Catalytic activity/Vol] 19 U/L 10-42 [facility] Serum or plasma calcium tammy urement (mass/volume)Ordered By: Colten Fry on 11-02-2022 Calcium [Mass/Vol] 9.6 mg/dL 8.2-10.2 [facility] Serum or plasma chloride judy surement (moles/volume)Ordered By: Colten Fry on 11-02-2022 Chloride [Moles/Vol] 95 mmol/L 95-114 [facility] Serum or plasma creatinine m easurement with calculation of estimated glomerular filtrOrdered By: Colten Fry on 11-02-2022 Creatinine and Glomerular filtration rate.predicted panel (S/P/Bld) 0.88 mg/dL 0.44-1.03 [facility] Serum or plasma glucose tammy urement (mass/volume)Ordered By: Colten Fry on 11-02-2022 Glucose [Mass/Vol] 95 mg/dL 70-100 [facility] Serum or plasma potassium me asurement (moles/volume)Ordered By: Colten Fry on 11-02-2022 Potassium [Moles/Vol] 2.9 mmol/L 3.5-5.1 [facility] Serum or plasma sodium measu rement (moles/volume)Ordered By: Colten Fry on 11-02-2022 Sodium [Moles/Vol] 134 mmol/L 136-146 [facility] Serum or plasma total biliru bin measurement (mass/volume)Ordered By: Colten Fry on 11-02-2022 Bilirubin [Mass/Vol] 1.8 mg/dL 0.3-1.2 [facility] Serum or plasma total carbon dioxide measurement (moles/volume)Ordered By: Colten Fry on 11-02-2022 CO2 [Moles/Vol] 27.3 mmol/L 22.0-30.0 [facility] Serum or plasma urea nitroge n measurement (mass/volume)Ordered By: Colten Fry on 11-02-2022 Urea nitrogen [Mass/Vol] 24 mg/dL 9- [facility] Specific gravity Auto test s trip (U) [Rel density]Ordered By: Colten Fry on 11-02-2022 Specific gravity (U) [Rel density] 1.025 1.001-1.03 0 [facility] Squamous epithelial cells de tection in urine sediment by light microscopyOrdered By: Colten Fry on 11-02-2022 Epithelial cells.squamous LM Ql (Urine sed) 10-19 [HPF] 0-2 [facility] Urine bacteria detection by automated methodOrdered By: Colten Fry on 11-02-2022 Bacteria Auto Ql (U) None seen None Seen [facility] Urine clarity by refractomet ry automatedOrdered By: Colten Fry on 11-02-2022 Clarity Refractometry automated (U) Cloudy Clear [facility] Urine cocaine detectionOrder ed By: Colten Fry on 11-02-2022 Cocaine Ql (U) Negative Negative [facility] Urine culture routineOrdered By: Colten Fry on 11-02-2022 Bacteria identified Cx Nom (U) 2 Days [facility] Urine culture routineOrdered By: Art Bianchi on 11-02-2022 Bacteria identified Cx Nom (U) 2 Days [facility] Urine glucose measurement by automated test strip (mass/volume)Ordered By: Colten Fry on 11-02-2022 Glucose Auto test strip (U) [Mass/Vol] Normal mg/dL Normal [facility] Urine hemoglobin detection b y automated test stripOrdered By: Colten Fry on 11-02-2022 Hemoglobin Auto test strip Ql (U) 3+ Negative [facility] Urine leukocyte esterase det ection by automated test stripOrdered By: Colten Fry on 11-02-2022 Leukocyte esterase Auto test strip Ql (U) 2+ Negative [facility] Urobilinogen Auto test strip (U) [Mass/Vol]Ordered By: Colten Fry on 11-02-2022 Urobilinogen (U) [Mass/Vol] Normal mg/dL Normal [facility] WBC Auto (Bld) [#/Vol]Ordere d By: Colten Fry on 11-02-2022 WBC (Bld) [#/Vol] 11.7 10*3/uL 4.5-13.5 [facility] pH Auto test strip (U)Ordere d By: Colten Fry on 11-02-2022 pH (U) 7.0 [pH] 5.0-9.0 [facility] Albumin [Mass/volume] in Ser um or PlasmaOrdered By: Art Bianchi on 10-31-2022 Albumin [Mass/Vol] 5.1 g/dL 3.2-5.5 [facility] Automated erythrocytes count in urine sediment (number/area)Ordered By: Art Bianchi on 10-31-2022 RBC Auto (Urine sed) [#/Area] Innumerable [HPF] 0-4 [facility] Automated leukocytes count i n urine sediment (number/area)Ordered By: Art Bianchi on 10-31-2022 WBC Auto (Urine sed) [#/Area] 10-19 [HPF] 0-4 [facility] Basophils Auto (Bld) [#/Vol] Ordered By: Art Bianchi on 10-31-2022 Basophils (Bld) [#/Vol] 0.0 10*3/uL 0.0-0.1 [facility] Basophils/100 WBC Auto (Bld) Ordered By: Art Bianchi on 10-31-2022 Basophils/100 WBC (Bld) 0.3 % . [facility] Bilirubin Test strip Ql (U)O rdered By: Art Bianchi on 10-31-2022 Bilirubin Ql (U) Negative Negative [facility] Color Auto (U)Ordered By: Adrian Bianchi on 10-31-2022 Color (U) Red Yellow [facility] Eosinophils Auto (Bld) [#/Vo l]Ordered By: Art Bianchi on 10-31-2022 Eosinophils (Bld) [#/Vol] 0.1 10*3/uL 0.0-0.7 [facility] Eosinophils/100 WBC Auto (Bl d)Ordered By: Art Bianchi on 10-31-2022 Eosinophils/100 WBC (Bld) 1.0 % . [facility] Erythrocyte distribution wid th Auto (RBC) [Ratio]Ordered By: Art Bianchi on 10-31-2022 Erythrocyte distribution width (RBC) [Ratio] 14.0 % 11.9-15.3 [facility] Estimated glomerular filtrat ion rate (GFR) non- AmericanOrdered By: Art Bianchi on 10-31-2022 GFR/1.73 sq M.predicted among non-blacks MDRD (S/P/Bld) [Vol rate/Area] > 60 mL/Min [facility] Globulin Calc (S) [Mass/Vol] Ordered By: Art Bianchi on 10-31-2022 Globulin (S) [Mass/Vol] 3.1 g/dL [facility] HCG ( test) IA.rapi d Ql (U)Ordered By: Art Bianchi on 10-31-2022 HCG ( test) Ql (U) Negative [facility] Hematocrit Auto (Bld) [Volum e fraction]Ordered By: Art Bianchi on 10-31-2022 Hematocrit (Bld) [Volume fraction] 45.0 % 36.0-46.0 [facility] Hemoglobin [Mass/volume] in BloodOrdered By: Art Bianchi on 10-31-2022 Hemoglobin (Bld) [Mass/Vol] 15.2 g/dL 12.0-16.0 [facility] Ketones Auto test strip (U) [Mass/Vol]Ordered By: Art Bianchi on 10-31-2022 Ketones (U) [Mass/Vol] 3+ [facility] Leukocytes [#/volume] correc venkata for nucleated erythrocytes in Blood by Automated counOrdered By: Art Bianchi on 10-31-2022 WBC corrected for nucl RBC Auto (Bld) [#/Vol] 14.0 10*3/uL 4.5-13.5 [facility] Lymphocytes Auto (Bld) [#/Vo l]Ordered By: Art Bianchi on 10-31-2022 Lymphocytes (Bld) [#/Vol] 2.2 10*3/uL 1.20-4.8 [facility] Lymphocytes/100 WBC Auto (Bl d)Ordered By: Art Bianchi on 10-31-2022 Lymphocytes/100 WBC (Bld) 15.5 % . [facility] MCH Auto (RBC) [Entitic mass ]Ordered By: Art Bianchi on 10-31-2022 MCH (RBC) [Entitic mass] 28.6 pg 25.0-35.0 [facility] MCHC Auto (RBC) [Mass/Vol]Or dered By: Art Bianchi on 10-31-2022 MCHC (RBC) [Mass/Vol] 33.7 g/dL 31.0-37.0 [facility] MCV Auto (RBC) [Entitic vol] Ordered By: Art Bianchi on 10-31-2022 MCV (RBC) [Entitic vol] 85.0 fL 78-102 [facility] Monocyte distribution width [Entitic volume] in Blood by AutomatedOrdered By: Art Bianchi on 10-31-2022 Monocyte distribution width Auto (Bld) [Entitic vol] 14.69 % 0.00-20.00 [facility] Monocytes Auto (Bld) [#/Vol] Ordered By: Art Bianchi on 10-31-2022 Monocytes (Bld) [#/Vol] 1.3 10*3/uL 0.1-1.00 [facility] Monocytes/100 WBC Auto (Bld) Ordered By: Art Bianchi on 10-31-2022 Monocytes/100 WBC (Bld) 9.1 % . [facility] Neutrophils Auto (Bld) [#/Vo l]Ordered By: Art Bianchi on 10-31-2022 Neutrophils (Bld) [#/Vol] 10.4 10*3/uL 1.2-7.7 [facility] Neutrophils/100 WBC Auto (Bl d)Ordered By: Art Bianchi on 10-31-2022 Neutrophils/100 WBC (Bld) 74.1 % . [facility] Nitrite Test strip Ql (U)Ord ered By: Art Bianchi on 10-31-2022 Nitrite Ql (U) Negative Negative [facility] No Panel InformationOrdered By: Art Bianchi on 10-31-2022 0-8 [LPF] 0-8 [facility] > 60 mL/Min [facility] 29.0 U/L 22-51 [facility] 102.97 [facility] Nucleated erythrocytes [Pres ence] in Blood by Automated countOrdered By: Art Bianchi on 10-31-2022 Nucleated RBC Auto Ql (Bld) 0.1 /100{WBC} 0-0.5 [facility] Platelet mean volume Auto (B ld) [Entitic vol]Ordered By: Art Bianchi on 10-31-2022 Platelet mean volume (Bld) [Entitic vol] 8.3 fL 6.3-10.7 [facility] Platelets Auto (Bld) [#/Vol] Ordered By: Art Bianchi on 10-31-2022 Platelets (Bld) [#/Vol] 337 10*3/uL 150-450 [facility] Protein Auto test strip (U) [Mass/Vol]Ordered By: Art Bianchi on 10-31-2022 Protein (U) [Mass/Vol] 100 mg/dL Negative Fi [facility] Protein [Mass/volume] in Ser um or PlasmaOrdered By: Art Bianchi on 10-31-2022 Protein [Mass/Vol] 8.2 g/dL 6.1-7.9 [facility] RBC Auto (Bld) [#/Vol]Ordere d By: Art Bianchi on 10-31-2022 RBC (Bld) [#/Vol] 5.29 10*6/uL 4.10-5.10 [facility] Serum or plasma alanine florez otransferase measurement without P-5'-P (enzymatic activiOrdered By: Art Bianchi on 10-31-2022 ALT No additional P-5'-P [Catalytic activity/Vol] 25 U/L 10-60 [facility] Serum or plasma albumin/glob ulin mass ratioOrdered By: Art Bianchi on 10-31-2022 Albumin/Globulin [Mass ratio] 1.6 {ratio} [facility] Serum or plasma alkaline justin sphatase measurement (enzymatic activity/volume)Ordered By: Art Bianchi on 10-31-2022 ALP [Catalytic activity/Vol] 62 U/L 32-92 [facility] Serum or plasma anion gap de terminationOrdered By: Art Bianchi on 10-31-2022 Anion gap [Moles/Vol] 16.8 mmol/L 6.0-15.0 [facility] Serum or plasma aspartate am inotransferase measurement (enzymatic activity/volume)Ordered By: Art Bianchi on 10-31-2022 AST [Catalytic activity/Vol] 25 U/L 10-42 [facility] Serum or plasma calcium tammy urement (mass/volume)Ordered By: Art Bianchi on 10-31-2022 Calcium [Mass/Vol] 9.9 mg/dL 8.2-10.2 [facility] Serum or plasma chloride judy surement (moles/volume)Ordered By: Art Bianchi on 10-31-2022 Chloride [Moles/Vol] 96 mmol/L 95-114 [facility] Serum or plasma creatinine m easurement with calculation of estimated glomerular filtrOrdered By: Art Bianchi on 10-31-2022 Creatinine and Glomerular filtration rate.predicted panel (S/P/Bld) 0.89 mg/dL 0.44-1.03 [facility] Serum or plasma glucose tammy urement (mass/volume)Ordered By: Art Bianchi on 10-31-2022 Glucose [Mass/Vol] 120 mg/dL 70-100 [facility] Serum or plasma potassium me asurement (moles/volume)Ordered By: Art Bianchi on 10-31-2022 Potassium [Moles/Vol] 3.2 mmol/L 3.5-5.1 [facility] Serum or plasma sodium measu rement (moles/volume)Ordered By: Art Bianchi on 10-31-2022 Sodium [Moles/Vol] 132 mmol/L 136-146 [facility] Serum or plasma total biliru bin measurement (mass/volume)Ordered By: Art Bianchi on 10-31-2022 Bilirubin [Mass/Vol] 1.7 mg/dL 0.3-1.2 [facility] Serum or plasma total carbon dioxide measurement (moles/volume)Ordered By: Art Bianchi on 10-31-2022 CO2 [Moles/Vol] 22.4 mmol/L 22.0-30.0 [facility] Serum or plasma urea nitroge n measurement (mass/volume)Ordered By: Art Bianchi on 10-31-2022 Urea nitrogen [Mass/Vol] 28 mg/dL 9-23 [facility] Specific gravity Auto test s trip (U) [Rel density]Ordered By: Art Bianchi on 10-31-2022 Specific gravity (U) [Rel density] 1.030 1.001-1.03 0 [facility] Squamous epithelial cells de tection in urine sediment by light microscopyOrdered By: Art Bianchi on 10-31-2022 Epithelial cells.squamous LM Ql (Urine sed) 10-19 [HPF] 0-2 [facility] Urine bacteria detection by automated methodOrdered By: Art Bianchi on 10-31-2022 Bacteria Auto Ql (U) None seen None Seen [facility] Urine clarity by refractomet ry automatedOrdered By: Art Bianchi on 10-31-2022 Clarity Refractometry automated (U) Cloudy Clear [facility] Urine culture routineOrdered By: Art Bianchi on 10-31-2022 Bacteria identified Cx Nom (U) 2 Days [facility] Urine glucose measurement by automated test strip (mass/volume)Ordered By: Art Bianchi on 10-31-2022 Glucose Auto test strip (U) [Mass/Vol] Normal mg/dL Normal [facility] Urine hemoglobin detection b y automated test stripOrdered By: Art Bianchi on 10-31-2022 Hemoglobin Auto test strip Ql (U) 3+ Negative [facility] Urine leukocyte esterase det ection by automated test stripOrdered By: Art Bianchi on 10-31-2022 Leukocyte esterase Auto test strip Ql (U) 2+ Negative [facility] Urobilinogen Auto test strip (U) [Mass/Vol]Ordered By: Art Bianchi on 10-31-2022 Urobilinogen (U) [Mass/Vol] Normal mg/dL Normal [facility] WBC Auto (Bld) [#/Vol]Ordere d By: Art Bianchi on 10-31-2022 WBC (Bld) [#/Vol] 14.0 10*3/uL 4.5-13.5 [facility] pH Auto test strip (U)Ordere d By: Art Bianchi on 10-31-2022 pH (U) 6.5 [pH] 5.0-9.0 [facility] Basophils Auto (Bld) [#/Vol] Ordered By: Chika Thompson on 10-29-2022 Basophils (Bld) [#/Vol] 0.0 10*3/uL 0.0-0.1 [facility] Basophils/100 WBC Auto (Bld) Ordered By: Chika Thompson on 10-29-2022 Basophils/100 WBC (Bld) 0.3 % . [facility] Body fluid albumin measureme nt (mass/volume)Ordered By: Chika Thompson on 10-29-2022 Albumin (Body fld) [Mass/Vol] 5.2 g/dL 3.2-5.5 [facility] Creatinine and Glomerular fi ltration rate.predicted panel (S/P/Bld)Ordered By: Chika Thompson on 10-29-2022 Creatinine [Mass/Vol] 0.85 mg/dL 0.44-1.03 [facility] Direct bilirubin measurement Ordered By: Chika Thompson on 10-29-2022 Bilirubin.direct [Mass/Vol] 0.1 mg/dL 0.0-0.4 [facility] Eosinophils Auto (Bld) [#/Vo l]Ordered By: Chika Thompson on 10-29-2022 Eosinophils (Bld) [#/Vol] 0.0 10*3/uL 0.0-0.7 [facility] Eosinophils/100 WBC Auto (Bl d)Ordered By: Chika Thompson on 10-29-2022 Eosinophils/100 WBC (Bld) 0.1 % . [facility] Erythrocyte distribution wid th Auto (RBC) [Ratio]Ordered By: Chika Thompson on 10-29-2022 Erythrocyte distribution width (RBC) [Ratio] 14.4 % 11.9-15.3 [facility] Estimated glomerular filtrat ion rate (GFR) non- AmericanOrdered By: Chika Thompson on 10-29-2022 GFR/1.73 sq M.predicted among non-blacks MDRD (S/P/Bld) [Vol rate/Area] > 60 mL/Min [facility] Globulin Calc (S) [Mass/Vol] Ordered By: hCika Thmopson on 10-29-2022 Globulin (S) [Mass/Vol] 3.7 g/dL [facility] Hematocrit Auto (Bld) [Volum e fraction]Ordered By: Chika Thompson on 10-29-2022 Hematocrit (Bld) [Volume fraction] 42.9 % 36.0-46.0 [facility] Hemoglobin [Mass/volume] in BloodOrdered By: Chika Thompson on 10-29-2022 Hemoglobin (Bld) [Mass/Vol] 14.3 g/dL 12.0-16.0 [facility] Laboratory - Chemistry and C hemistry - challengeOrdered By: Chika Thompson on 10-29-2022 Lipase [Catalytic activity/Vol] 25.0 U/L 22-51 [facility] Leukocytes [#/volume] correc venkata for nucleated erythrocytes in Blood by Automated counOrdered By: Chika Thompson on 10-29-2022 WBC corrected for nucl RBC Auto (Bld) [#/Vol] 13.7 10*3/uL 4.5-13.5 [facility] Lymphocytes Auto (Bld) [#/Vo l]Ordered By: Chika Thompson on 10-29-2022 Lymphocytes (Bld) [#/Vol] 1.7 10*3/uL 1.20-4.8 [facility] Lymphocytes/100 WBC Auto (Bl d)Ordered By: Chika Thompson on 10-29-2022 Lymphocytes/100 WBC (Bld) 12.4 % . [facility] MCH Auto (RBC) [Entitic mass ]Ordered By: Chika Thompson on 10-29-2022 MCH (RBC) [Entitic mass] 28.4 pg 25.0-35.0 [facility] MCHC Auto (RBC) [Mass/Vol]Or dered By: Chika Thompson on 10-29-2022 MCHC (RBC) [Mass/Vol] 33.3 g/dL 31.0-37.0 [facility] MCV Auto (RBC) [Entitic vol] Ordered By: Chika Thompson on 10-29-2022 MCV (RBC) [Entitic vol] 85.1 fL 78-102 [facility] Monocyte distribution width [Entitic volume] in Blood by AutomatedOrdered By: Chika Thompson on 10-29-2022 Monocyte distribution width Auto (Bld) [Entitic vol] 16.57 % 0.00-20.00 [facility] Monocytes Auto (Bld) [#/Vol] Ordered By: Chika Thompson on 10-29-2022 Monocytes (Bld) [#/Vol] 0.9 10*3/uL 0.1-1.00 [facility] Monocytes/100 WBC Auto (Bld) Ordered By: Chika Thompson on 10-29-2022 Monocytes/100 WBC (Bld) 6.8 % . [facility] Neutrophils Auto (Bld) [#/Vo l]Ordered By: Chika Thompson on 10-29-2022 Neutrophils (Bld) [#/Vol] 11.0 10*3/uL 1.2-7.7 [facility] Neutrophils/100 WBC Auto (Bl d)Ordered By: Chika Thompson on 10-29-2022 Neutrophils/100 WBC (Bld) 80.4 % . [facility] No Panel InformationOrdered By: Chika Thompson on 10-29-2022 Estimated GFR () > 60 mL/Min [facility] Comment on above: GFR estimated refere nce range: According to KDOQI guidelines, <60 ml/min/1.73m2 is sufficient to diagnose a patient with chronic kidney disease. Pharmacy Creatinine Clearance (Chem 105.83 [facility] > 60 mL/Min [facility] 25.0 U/L 22-51 [facility] 105.83 [facility] Nucleated erythrocytes [Pres ence] in Blood by Automated countOrdered By: Chika Thompson on 10-29-2022 Nucleated RBC Auto Ql (Bld) 0.0 /100{WBC} 0-0.5 [facility] Platelet mean volume Auto (B ld) [Entitic vol]Ordered By: Chika Thompson on 10-29-2022 Platelet mean volume (Bld) [Entitic vol] 8.4 fL 6.3-10.7 [facility] Platelets Auto (Bld) [#/Vol] Ordered By: Chika Thompson on 10-29-2022 Platelets (Bld) [#/Vol] 355 10*3/uL 150-450 [facility] Protein [Mass/volume] in Ser um or PlasmaOrdered By: Chika Thompson on 10-29-2022 Protein [Mass/Vol] 8.9 g/dL 6.1-7.9 [facility] RBC Auto (Bld) [#/Vol]Ordere d By: Chika Thompson on 10-29-2022 RBC (Bld) [#/Vol] 5.04 10*6/uL 4.10-5.10 [facility] Serum or plasma alanine florez otransferase measurement without P-5'-P (enzymatic activiOrdered By: Chika Thompson on 10-29-2022 ALT No additional P-5'-P [Catalytic activity/Vol] 24 U/L 10-60 [facility] Serum or plasma albumin/glob ulin mass ratioOrdered By: Chika Thompson on 10-29-2022 Albumin/Globulin [Mass ratio] 1.4 {ratio} [facility] Serum or plasma alkaline justin sphatase measurement (enzymatic activity/volume)Ordered By: Chika Thompson on 10-29-2022 ALP [Catalytic activity/Vol] 68 U/L 32-92 [facility] Serum or plasma anion gap de terminationOrdered By: Chika Thompson on 10-29-2022 Anion gap [Moles/Vol] 19.9 mmol/L 6.0-15.0 [facility] Serum or plasma aspartate am inotransferase measurement (enzymatic activity/volume)Ordered By: Chika Thompson on 10-29-2022 AST [Catalytic activity/Vol] 20 U/L 10-42 [facility] Serum or plasma calcium tammy urement (mass/volume)Ordered By: Chika Thompson on 10-29-2022 Calcium [Mass/Vol] 10.4 mg/dL 8.2-10.2 [facility] Serum or plasma chloride judy surement (moles/volume)Ordered By: Chika Thompson on 10-29-2022 Chloride [Moles/Vol] 100 mmol/L 95-114 [facility] Serum or plasma creatinine m easurement with calculation of estimated glomerular filtrOrdered By: Chika Thompson on 10-29-2022 Creatinine and Glomerular filtration rate.predicted panel (S/P/Bld) 0.85 mg/dL 0.44-1.03 [facility] Serum or plasma glucose tammy urement (mass/volume)Ordered By: Chika Thompson on 10-29-2022 Glucose [Mass/Vol] 114 mg/dL 70-100 [facility] Comment on above: ADA recommended refe rence rangeRandom Glucose Reference Range is dependent on time and content of last meal. Glucose of more than 200 mg/dL in a nonstressed, ambulatory subject supports the diagnosis of Diabetes Mellitus. Serum or plasma non-glucuron idated bilirubin measurement (mass/volume)Ordered By: Chika Thompson on 10-29-2022 Bilirubin.indirect [Mass/Vol] 1.1 mg/dL [facility] Serum or plasma potassium me asurement (moles/volume)Ordered By: Chika Thompson on 10-29-2022 Potassium [Moles/Vol] 3.3 mmol/L 3.5-5.1 [facility] Serum or plasma sodium measu rement (moles/volume)Ordered By: Chika Thompson on 10-29-2022 Sodium [Moles/Vol] 137 mmol/L 136-146 [facility] Serum or plasma total biliru bin measurement (mass/volume)Ordered By: Chika Thompson on 10-29-2022 Bilirubin [Mass/Vol] 1.2 mg/dL 0.3-1.2 [facility] Serum or plasma total carbon dioxide measurement (moles/volume)Ordered By: Chika Thompson on 10-29-2022 CO2 [Moles/Vol] 20.4 mmol/L 22.0-30.0 [facility] Serum or plasma urea nitroge n measurement (mass/volume)Ordered By: Chika Thompson on 10-29-2022 Urea nitrogen [Mass/Vol] 21 mg/dL 9-23 [facility] WBC Auto (Bld) [#/Vol]Ordere d By: Chika Thompson on 10-29-2022 WBC (Bld) [#/Vol] 13.7 10*3/uL 4.5-13.5 [facility] Basophils Auto (Bld) [#/Vol] Ordered By: Modesta Chand on 08-27-2022 Basophils (Bld) [#/Vol] 0.0 10*3/uL 0.0-0.1 [facility] Basophils/100 WBC Auto (Bld) Ordered By: Modesta Chand on 08-27-2022 Basophils/100 WBC (Bld) 0.3 % . [facility] Body fluid albumin measureme nt (mass/volume)Ordered By: Modesta Chand on 08-27-2022 Albumin (Body fld) [Mass/Vol] 4.7 g/dL 3.2-5.5 [facility] Creatinine and Glomerular fi ltration rate.predicted panel (S/P/Bld)Ordered By: Modesta Chand on 08-27-2022 Creatinine [Mass/Vol] 0.90 mg/dL 0.44-1.03 [facility] Eosinophils Auto (Bld) [#/Vo l]Ordered By: Modesta Chand on 08-27-2022 Eosinophils (Bld) [#/Vol] 0.3 10*3/uL 0.0-0.7 [facility] Eosinophils/100 WBC Auto (Bl d)Ordered By: Modesta Chand on 08-27-2022 Eosinophils/100 WBC (Bld) 2.2 % . [facility] Erythrocyte distribution wid th Auto (RBC) [Ratio]Ordered By: Modesta Chand on 08-27-2022 Erythrocyte distribution width (RBC) [Ratio] 14.0 % 11.9-15.3 [facility] Estimated glomerular filtrat ion rate (GFR) non- AmericanOrdered By: Modesta Chand on 08-27-2022 GFR/1.73 sq M.predicted among non-blacks MDRD (S/P/Bld) [Vol rate/Area] > 60 mL/Min [facility] Globulin Calc (S) [Mass/Vol] Ordered By: Modesta Chand on 08-27-2022 Globulin (S) [Mass/Vol] 2.5 g/dL [facility] Hematocrit Auto (Bld) [Volum e fraction]Ordered By: Modesta Chand on 08-27-2022 Hematocrit (Bld) [Volume fraction] 46.5 % 36.0-46.0 [facility] Hemoglobin [Mass/volume] in BloodOrdered By: Modesta Chand on 08-27-2022 Hemoglobin (Bld) [Mass/Vol] 15.6 g/dL 12.0-16.0 [facility] Laboratory - Chemistry and C hemistry - challengeOrdered By: Modesta Chand on 08-27-2022 Lipase [Catalytic activity/Vol] 27.0 U/L 22-51 [facility] Laboratory - Hematology and Cell countsOrdered By: Modesta Chand on 08-27-2022 Nucleated RBC/100 WBC (Bld) [Ratio] 0.1 % 0-0.5 [facility] Leukocytes [#/volume] in Blo od by Automated countOrdered By: Modesta Chand on 08-27-2022 WBC (Bld) [#/Vol] 13.4 10*3/uL 4.5-13.5 [facility] Lymphocytes Auto (Bld) [#/Vo l]Ordered By: Modesta Chand on 08-27-2022 Lymphocytes (Bld) [#/Vol] 3.1 10*3/uL 1.20-4.8 [facility] Lymphocytes/100 WBC Auto (Bl d)Ordered By: Modesta Chand on 08-27-2022 Lymphocytes/100 WBC (Bld) 22.9 % . [facility] MCH Auto (RBC) [Entitic mass ]Ordered By: Modesta Chand on 08-27-2022 MCH (RBC) [Entitic mass] 28.4 pg 25.0-35.0 [facility] MCHC Auto (RBC) [Mass/Vol]Or dered By: Modesta Chand on 08-27-2022 MCHC (RBC) [Mass/Vol] 33.5 g/dL 31.0-37.0 [facility] MCV Auto (RBC) [Entitic vol] Ordered By: Modesta Chand on 08-27-2022 MCV (RBC) [Entitic vol] 84.8 fL 78-102 [facility] Monocytes Auto (Bld) [#/Vol] Ordered By: Modesta Chand on 08-27-2022 Monocytes (Bld) [#/Vol] 1.2 10*3/uL 0.1-1.00 [facility] Monocytes/100 WBC Auto (Bld) Ordered By: Modesta Chand on 08-27-2022 Monocytes/100 WBC (Bld) 9.1 % . [facility] Neutrophils Auto (Bld) [#/Vo l]Ordered By: Modesta Chand on 08-27-2022 Neutrophils (Bld) [#/Vol] 8.8 10*3/uL 1.2-7.7 [facility] Neutrophils/100 WBC Auto (Bl d)Ordered By: Modesta Chand on 08-27-2022 Neutrophils/100 WBC (Bld) 65.5 % . [facility] No Panel InformationOrdered By: Modesta Chand on 08-27-2022 Estimated GFR () > 60 mL/Min [facility] Comment on above: GFR estimated refere nce range: According to KDOQI guidelines, <60 ml/min/1.73m2 is sufficient to diagnose a patient with chronic kidney disease. Pharmacy Creatinine Clearance (Chem N/A [facility] 13.4 10*3/uL 4.5-13.5 [facility] 0.1 % 0-0.5 [facility] > 60 mL/Min [facility] 27.0 U/L 22-51 [facility] N/A [facility] Platelet mean volume Auto (B ld) [Entitic vol]Ordered By: Modesta Chand on 08-27-2022 Platelet mean volume (Bld) [Entitic vol] 8.9 fL 6.3-10.7 [facility] Platelets Auto (Bld) [#/Vol] Ordered By: Modesta Chand on 08-27-2022 Platelets (Bld) [#/Vol] 373 10*3/uL 150-450 [facility] Protein [Mass/volume] in Ser um or PlasmaOrdered By: Modesta Chand on 08-27-2022 Protein [Mass/Vol] 7.2 g/dL 6.1-7.9 [facility] RBC Auto (Bld) [#/Vol]Ordere d By: Modesta Chand on 08-27-2022 RBC (Bld) [#/Vol] 5.49 10*6/uL 4.10-5.10 [facility] Serum or plasma alanine florez otransferase measurement without P-5'-P (enzymatic activiOrdered By: Modesta Chand on 08-27-2022 ALT No additional P-5'-P [Catalytic activity/Vol] 20 U/L 10-60 [facility] Serum or plasma albumin/glob ulin mass ratioOrdered By: Modesta Chand on 08-27-2022 Albumin/Globulin [Mass ratio] 1.9 {ratio} [facility] Serum or plasma alkaline justin sphatase measurement (enzymatic activity/volume)Ordered By: Modesta Chand on 08-27-2022 ALP [Catalytic activity/Vol] 63 U/L 32-92 [facility] Serum or plasma amylase tammy urement (enzymatic activity/volume)Ordered By: Modesta Chand on 08-27-2022 Amylase [Catalytic activity/Vol] 25 U/L 28-100 [facility] Serum or plasma anion gap de terminationOrdered By: Modesta Chand on 08-27-2022 Anion gap [Moles/Vol] 22.5 mmol/L 6.0-15.0 [facility] Serum or plasma aspartate am inotransferase measurement (enzymatic activity/volume)Ordered By: Modesta Chand on 08-27-2022 AST [Catalytic activity/Vol] 18 U/L 10-42 [facility] Serum or plasma calcium tammy urement (mass/volume)Ordered By: Modesta Chand on 08-27-2022 Calcium [Mass/Vol] 10.1 mg/dL 8.2-10.2 [facility] Serum or plasma chloride judy surement (moles/volume)Ordered By: Modesta Chand on 08-27-2022 Chloride [Moles/Vol] 89 mmol/L 95-114 [facility] Serum or plasma creatinine m easurement with calculation of estimated glomerular filtrOrdered By: Modesta Chand on 08-27-2022 Creatinine and Glomerular filtration rate.predicted panel (S/P/Bld) 0.90 mg/dL 0.44-1.03 [facility] Serum or plasma glucose tammy urement (mass/volume)Ordered By: Modesta Chand on 08-27-2022 Glucose [Mass/Vol] 76 mg/dL 70-100 [facility] Comment on above: ADA recommended refe rence rangeRandom Glucose Reference Range is dependent on time and content of last meal. Glucose of more than 200 mg/dL in a nonstressed, ambulatory subject supports the diagnosis of Diabetes Mellitus. Serum or plasma potassium me asurement (moles/volume)Ordered By: Modesta Chand on 08-27-2022 Potassium [Moles/Vol] 3.7 mmol/L 3.5-5.1 [facility] Serum or plasma sodium measu rement (moles/volume)Ordered By: Modesta Chand on 08-27-2022 Sodium [Moles/Vol] 131 mmol/L 136-146 [facility] Serum or plasma total biliru bin measurement (mass/volume)Ordered By: Modesta Chand on 08-27-2022 Bilirubin [Mass/Vol] 1.6 mg/dL 0.3-1.2 [facility] Comment on above: Samples from patient s who have taken Naproxen have shown spurious elevation in Total Bilirubin levels. A metabolite of Naproxen, O-desmethylnaproxen, has been shown to interfere with the Solomon method for measuring Total Bilirubin. Serum or plasma total carbon dioxide measurement (moles/volume)Ordered By: Modesta Chand on 08-27-2022 CO2 [Moles/Vol] 23.2 mmol/L 22.0-30.0 [facility] Serum or plasma urea nitroge n measurement (mass/volume)Ordered By: Modesta Chand on 08-27-2022 Urea nitrogen [Mass/Vol] 15 mg/dL 9- [facility] Basophils Auto (Bld) [#/Vol] Ordered By: Gregorio Carey on 08-22-2022 Basophils (Bld) [#/Vol] 0.0 10*3/uL 0.0-0.1 [facility] Basophils/100 WBC Auto (Bld) Ordered By: Gregorio Carey on 08-22-2022 Basophils/100 WBC (Bld) 0.3 % . [facility] Blood hemoglobin measurement (mass/volume)Ordered By: Gregorio Carey on 08-22-2022 Hemoglobin (Bld) [Mass/Vol] 13.1 g/dL 12.0-16.0 [facility] Blood leukocytes automated c ount (number/volume)Ordered By: Gregorio Carey on 08-22-2022 WBC (Bld) [#/Vol] 9.7 10*3/uL 4.5-13.5 [facility] Creatinine and Glomerular fi ltration rate.predicted panel (S/P/Bld)Ordered By: Gregorio Carey on 08-22-2022 Creatinine [Mass/Vol] 0.75 mg/dL 0.44-1.03 [facility] Eosinophils Auto (Bld) [#/Vo l]Ordered By: Gregorio Carey on 08-22-2022 Eosinophils (Bld) [#/Vol] 0.1 10*3/uL 0.0-0.7 [facility] Eosinophils/100 WBC Auto (Bl d)Ordered By: Gregorio Carey on 08-22-2022 Eosinophils/100 WBC (Bld) 1.0 % . [facility] Erythrocyte distribution wid th Auto (RBC) [Ratio]Ordered By: Gregorio Carey on 08-22-2022 Erythrocyte distribution width (RBC) [Ratio] 14.1 % 11.9-15.3 [facility] Estimated glomerular filtrat ion rate (GFR) non- AmericanOrdered By: Gregorio Carey on 08-22-2022 GFR/1.73 sq M.predicted among non-blacks MDRD (S/P/Bld) [Vol rate/Area] > 60 mL/Min [facility] Hematocrit Auto (Bld) [Volum e fraction]Ordered By: Gregorio Carey on 08-22-2022 Hematocrit (Bld) [Volume fraction] 39.6 % 36.0-46.0 [facility] Laboratory - Hematology and Cell countsOrdered By: Gregorio Carey on 08-22-2022 Nucleated RBC/100 WBC (Bld) [Ratio] 0.0 % 0-0.5 [facility] Lymphocytes Auto (Bld) [#/Vo l]Ordered By: Gregorio Carey on 08-22-2022 Lymphocytes (Bld) [#/Vol] 2.0 10*3/uL 1.20-4.8 [facility] Lymphocytes/100 WBC Auto (Bl d)Ordered By: Gregorio Carey on 08-22-2022 Lymphocytes/100 WBC (Bld) 20.5 % . [facility] MCH Auto (RBC) [Entitic mass ]Ordered By: Gregorio Carey on 08-22-2022 MCH (RBC) [Entitic mass] 28.0 pg 25.0-35.0 [facility] MCHC Auto (RBC) [Mass/Vol]Or dered By: Gregorio Carey on 08-22-2022 MCHC (RBC) [Mass/Vol] 33.2 g/dL 31.0-37.0 [facility] MCV Auto (RBC) [Entitic vol] Ordered By: Gregorio Carey on 08-22-2022 MCV (RBC) [Entitic vol] 84.5 fL 78-102 [facility] Monocytes Auto (Bld) [#/Vol] Ordered By: Gregorio Carey on 08-22-2022 Monocytes (Bld) [#/Vol] 0.8 10*3/uL 0.1-1.00 [facility] Monocytes/100 WBC Auto (Bld) Ordered By: Gregorio Carey on 08-22-2022 Monocytes/100 WBC (Bld) 8.0 % . [facility] Neutrophils Auto (Bld) [#/Vo l]Ordered By: Gregorio Carey on 08-22-2022 Neutrophils (Bld) [#/Vol] 6.8 10*3/uL 1.2-7.7 [facility] Neutrophils/100 WBC Auto (Bl d)Ordered By: Gregorio Carey on 08-22-2022 Neutrophils/100 WBC (Bld) 70.2 % . [facility] No Panel InformationOrdered By: Gregorio Carey on 08-22-2022 Estimated GFR () > 60 mL/Min [facility] Comment on above: GFR estimated refere nce range: According to KDOQI guidelines, <60 ml/min/1.73m2 is sufficient to diagnose a patient with chronic kidney disease. Pharmacy Creatinine Clearance (Chem 117.26 [facility] 9.7 10*3/uL 4.5-13.5 [facility] 0.0 % 0-0.5 [facility] > 60 mL/Min [facility] 117.26 [facility] Platelet mean volume Auto (B ld) [Entitic vol]Ordered By: Gregorio Carey on 08-22-2022 Platelet mean volume (Bld) [Entitic vol] 8.6 fL 6.3-10.7 [facility] Platelets Auto (Bld) [#/Vol] Ordered By: Gregorio Carey on 08-22-2022 Platelets (Bld) [#/Vol] 246 10*3/uL 150-450 [facility] RBC Auto (Bld) [#/Vol]Ordere d By: Gregorio Carey on 08-22-2022 RBC (Bld) [#/Vol] 4.69 10*6/uL 4.10-5.10 [facility] Serum nuclear antibody titer Ordered By: Gregorio Carey on 08-22-2022 Nuclear Ab (S) [Titer] Negative . [facility] Comment on above: Negative <1:80 Borde rline 1:80 Positive >1:80ICAP nomenclature: [id number] more information about Hep-2 cell patterns useANApatterns.org, the official website for theInternational Consensus on Antinuclear Antibody (EDMOND)Patterns (ICAP).Performed at: [facility] [id number] Director: James Nelson PhD, Phone: [phone] Serum or plasma anion gap de terminationOrdered By: Gregorio Carey on 08-22-2022 Anion gap [Moles/Vol] 17.0 mmol/L 6.0-15.0 [facility] Serum or plasma beta choriog onadotropin measurement (units/volume)Ordered By: Gregorio Carey on 08-22-2022 HCG.beta subunit Qn m[IU]/mL [facility] Comment on above: Approximate Approxim ate hCG [...] on 08-22-2022 Calcium [Mass/Vol] 9.4 mg/dL 8.2-10.2 [facility] Serum or plasma chloride judy surement (moles/volume)Ordered By: Gregorio Carey on 08-22-2022 Chloride [Moles/Vol] 99 mmol/L 95-114 [facility] Serum or plasma creatinine m easurement with calculation of estimated glomerular filtrOrdered By: Gregorio Carey on 08-22-2022 Creatinine and Glomerular filtration rate.predicted panel (S/P/Bld) 0.75 mg/dL 0.44-1.03 [facility] Serum or plasma glucose tammy urement (mass/volume)Ordered By: Gregorio Carey on 08-22-2022 Glucose [Mass/Vol] 90 mg/dL 70-100 [facility] Comment on above: ADA recommended refe [...] on 08-22-2022 Potassium [Moles/Vol] 3.8 mmol/L 3.5-5.1 [facility] Serum or plasma sodium measu rement (moles/volume)Ordered By: Gregorio Carey on 08-22-2022 Sodium [Moles/Vol] 134 mmol/L 136-146 [facility] Serum or plasma total carbon dioxide measurement (moles/volume)Ordered By: Gregorio Carey on 08-22-2022 CO2 [Moles/Vol] 21.8 mmol/L 22.0-30.0 [facility] Serum or plasma urea nitroge n measurement (mass/volume)Ordered By: Gregorio Carey on 08-22-2022 Urea nitrogen [Mass/Vol] 7 mg/dL 08-20 [facility] Urine culture routineOrdered By: Gregorio Carey on 08-22-2022 Bacteria identified Cx Nom (U) 2 Days [facility] Urine culture routineOrdered By: Gilson Castro on 08-22-2022 Bacteria identified Cx Nom (U) 2 Days [facility] Urine culture routineOrdered By: Colten Fry on 08-21-2022 Bacteria identified Cx Nom (U) 2 Days [facility] Amphetamine Screen Ql (U)Ord ered By: Gilson Castro on 08-20-2022 Amphetamines Ql (U) Negative Negative [facility] Automated erythrocytes count in urine sediment (number/area)Ordered By: Gilson Castro on 08-20-2022 RBC Auto (Urine sed) [#/Area] None seen [HPF] 0-4 [facility] Automated leukocytes count i n urine sediment (number/area)Ordered By: Gilson Castro on 08-20-2022 WBC Auto (Urine sed) [#/Area] 1-2 [HPF] 0-4 [facility] Barbiturates [Presence] in U rineOrdered By: Gilson Castro on 08-20-2022 Barbiturates Ql (U) Positive Negative [facility] Basophils Auto (Bld) [#/Vol] Ordered By: Gilson Castro on 08-20-2022 Basophils (Bld) [#/Vol] 0.0 10*3/uL 0.0-0.1 [facility] Basophils/100 WBC Auto (Bld) Ordered By: Gilson Castro on 08-20-2022 Basophils/100 WBC (Bld) 0.4 % . [facility] Benzodiazepines [Presence] i n UrineOrdered By: Gilson Castro on 08-20-2022 Benzodiazepines Ql (U) Negative Negative [facility] Bilirubin Test strip Ql (U)O rdered By: Gilson Castro on 08-20-2022 Bilirubin Ql (U) Negative Negative [facility] Blood anisocytosis detection Ordered By: Gilson Castro on 08-20-2022 Anisocytosis Ql (Bld) Slight Fir [facility] Blood hemoglobin measurement (mass/volume)Ordered By: Gilson Castro on 08-20-2022 Hemoglobin (Bld) [Mass/Vol] 12.1 g/dL 12.0-16.0 [facility] Blood leukocytes automated c ount (number/volume)Ordered By: Gilson Castro on 08-20-2022 WBC (Bld) [#/Vol] 10.9 10*3/uL 4.5-13.5 [facility] COVID-19 Positive/NegativeOr dered By: Chika Thompson on 08-20-2022 SARS-CoV-2 (COVID-19) N gene JANAK+probe Ql (Resp) Negative Negative [facility] Comment on above: Testing for SARS-CoV -2 by RT-PCR This test was developed and its performance characteristics determined by [employer] ([place]) and validated at the [facility]. This test has not been FDA cleared [...] and its performance characteristics determined by [employer] ([place]) and validated at the [facility]. This test has not been FDA cleared [...] terminated or revoked sooner. COVID-19 SOFIAOrdered By: Gisselle Thompson on 08-20-2022 SARS-CoV+SARS-CoV-2 (COVID-19) Ag IA.rapid Ql (Resp) Negative Negative [facility] Comment on above: This is a duplicate [employer] SARS Antigen (JOSE A) result to be used for statistical tracking purpose only. Cannabinoids [Presence] in U rine by Screen methodOrdered By: Gilson Castro on 08-20-2022 Cannabinoids Screen Ql (U) Positive Negative [facility] Comment on above: These are unconfirme d [...] Castro on 08-20-2022 Color (U) Yellow Yellow [facility] Creatinine and Glomerular fi ltration rate.predicted panel (S/P/Bld)Ordered By: Gilson Castro on 08-20-2022 Creatinine [Mass/Vol] 0.65 mg/dL 0.44-1.03 [facility] Eosinophils Auto (Bld) [#/Vo l]Ordered By: Gilson Castro on 08-20-2022 Eosinophils (Bld) [#/Vol] 0.0 10*3/uL 0.0-0.7 [facility] Eosinophils/100 WBC Auto (Bl d)Ordered By: Gilson Castro on 08-20-2022 Eosinophils/100 WBC (Bld) 0.3 % . [facility] Erythrocyte distribution wid th Auto (RBC) [Ratio]Ordered By: Gilson Castro on 08-20-2022 Erythrocyte distribution width (RBC) [Ratio] 13.9 % 11.9-15.3 [facility] Estimated glomerular filtrat ion rate (GFR) non- AmericanOrdered By: Gilson Castro on 08-20-2022 GFR/1.73 sq M.predicted among non-blacks MDRD (S/P/Bld) [Vol rate/Area] > 60 mL/Min [facility] Hematocrit Auto (Bld) [Volum e fraction]Ordered By: Gilson Castro on 08-20-2022 Hematocrit (Bld) [Volume fraction] 36.8 % 36.0-46.0 [facility] Ketones Auto test strip (U) [Mass/Vol]Ordered By: Gilson Castro on 08-20-2022 Ketones (U) [Mass/Vol] 2+ Negative Fi [facility] Laboratory - Chemistry and C hemistry - challengeOrdered By: Gilson Castro on 08-20-2022 Magnesium [Mass/Vol] 1.9 mg/dL 1.6-2.6 [facility] Laboratory - Drug toxicology Ordered By: Gilson Castro on 08-20-2022 Opiates Ql (U) Negative Negative [facility] Laboratory - Hematology and Cell countsOrdered By: Gilson Castro on 08-20-2022 Nucleated RBC/100 WBC (Bld) [Ratio] 0.0 % 0-0.5 [facility] Laboratory - UrinalysisOrder ed By: Gilson Castro on 08-20-2022 Hyaline casts LM Ql (Urine sed) None seen [LPF] 0-8 [facility] Lymphocytes Auto (Bld) [#/Vo l]Ordered By: Gilson Castro on 08-20-2022 Lymphocytes (Bld) [#/Vol] 1.3 10*3/uL 1.20-4.8 [facility] Lymphocytes/100 WBC Auto (Bl d)Ordered By: Gilson Castro on 08-20-2022 Lymphocytes/100 WBC (Bld) 11.5 % . [facility] MCH Auto (RBC) [Entitic mass ]Ordered By: Gilson Castro on 08-20-2022 MCH (RBC) [Entitic mass] 28.1 pg 25.0-35.0 [facility] MCHC Auto (RBC) [Mass/Vol]Or dered By: Gilson Castro on 08-20-2022 MCHC (RBC) [Mass/Vol] 32.9 g/dL 31.0-37.0 [facility] MCV Auto (RBC) [Entitic vol] Ordered By: Gilson Castro on 08-20-2022 MCV (RBC) [Entitic vol] 85.5 fL 78-102 [facility] Monocytes Auto (Bld) [#/Vol] Ordered By: Gilson Castro on 08-20-2022 Monocytes (Bld) [#/Vol] 0.4 10*3/uL 0.1-1.00 [facility] Monocytes/100 WBC Auto (Bld) Ordered By: Gilson Castro on 08-20-2022 Monocytes/100 WBC (Bld) 3.7 % . [facility] Neutrophils Auto (Bld) [#/Vo l]Ordered By: Gilson Castro on 08-20-2022 Neutrophils (Bld) [#/Vol] 9.2 10*3/uL 1.2-7.7 [facility] Neutrophils/100 WBC Auto (Bl d)Ordered By: Gilson Castro on 08-20-2022 Neutrophils/100 WBC (Bld) 84.1 % . [facility] Nitrite Test strip Ql (U)Ord ered By: Gilson Castro on 08-20-2022 Nitrite Ql (U) Negative Negative [facility] No Panel InformationOrdered By: Gilson Castro on 08-20-2022 None seen [LPF] 0-8 [facility] Negative Negative [facility] Estimated GFR () > 60 mL/Min [facility] Comment on above: GFR estimated refere nce range: According to KDOQI guidelines, <60 ml/min/1.73m2 is sufficient to diagnose a patient with chronic kidney disease. Pharmacy Creatinine Clearance (Chem 136.96 [facility] Platelet Estimate Normal Normal [facility] Platelet Morphology Comment Normal Normal [facility] Normal Normal [facility] 1.9 mg/dL 1.6-2.6 [facility] No Panel InformationOrdered By: Chika Thompson on 08-20-2022 SARS Antigen (LFIA) [facility] Phencyclidine Screen Ql (U)O rdered By: Gilson Castro on 08-20-2022 Phencyclidine Ql (U) Negative Negative [facility] Platelet mean volume Auto (B ld) [Entitic vol]Ordered By: Gilson Castro on 08-20-2022 Platelet mean volume (Bld) [Entitic vol] 8.6 fL 6.3-10.7 [facility] Platelets Auto (Bld) [#/Vol] Ordered By: Gilson Castro on 08-20-2022 Platelets (Bld) [#/Vol] 145 10*3/uL 150-450 [facility] Comment on above: Delta: 314 on -1854 Protein Auto test strip (U) [Mass/Vol]Ordered By: Gilson Castro on 08-20-2022 Protein (U) [Mass/Vol] Negative Negative [facility] RBC Auto (Bld) [#/Vol]Ordere d By: Gilson Castro on 08-20-2022 RBC (Bld) [#/Vol] 4.31 10*6/uL 4.10-5.10 [facility] RBC morphologyOrdered By: Pierce Castro on 08-20-2022 RBC morphology finding Nom (Bld) N/A [facility] Serum or plasma anion gap de terminationOrdered By: Gilson Castro on 08-20-2022 Anion gap [Moles/Vol] 15.2 mmol/L 6.0-15.0 [facility] Serum or plasma calcium tammy urement (mass/volume)Ordered By: Gilson Castro on 08-20-2022 Calcium [Mass/Vol] 8.6 mg/dL 8.2-10.2 [facility] Serum or plasma chloride judy surement (moles/volume)Ordered By: Gilson Castro on 08-20-2022 Chloride [Moles/Vol] 101 mmol/L 95-114 [facility] Serum or plasma glucose tammy urement (mass/volume)Ordered By: Gilson Castro on 08-20-2022 Glucose [Mass/Vol] 96 mg/dL 70-100 [facility] Comment on above: ADA recommended refe rence range Random Glucose Reference Range is dependent on time and content of last meal. Glucose of more than 200 mg/dL in a nonstressed, ambulatory subject supports the diagnosis of Diabetes Mellitus. Serum or plasma potassium me asurement (moles/volume)Ordered By: Gilson Castro on 08-20-2022 Potassium [Moles/Vol] 3.1 mmol/L 3.5-5.1 [facility] Serum or plasma sodium measu rement (moles/volume)Ordered By: Gilson Castro on 08-20-2022 Sodium [Moles/Vol] 135 mmol/L 136-146 [facility] Serum or plasma total carbon dioxide measurement (moles/volume)Ordered By: Gilson Castro on 08-20-2022 CO2 [Moles/Vol] 21.9 mmol/L 22.0-30.0 [facility] Serum or plasma urea nitroge n measurement (mass/volume)Ordered By: Gilson Castro on 08-20-2022 Urea nitrogen [Mass/Vol] 11 mg/dL 08-20 [facility] Specific gravity Auto test s trip (U) [Rel density]Ordered By: Gilson Castro on 08-20-2022 Specific gravity (U) [Rel density] 1.008 1.001-1.03 0 [facility] Squamous epithelial cells de tection in urine sediment by light microscopyOrdered By: Gilson Castro on 08-20-2022 Epithelial cells.squamous LM Ql (Urine sed) 1-2 [HPF] 0-2 [facility] Urine bacteria detection by automated methodOrdered By: Gilson Castro on 08-20-2022 Bacteria Auto Ql (U) None seen None Seen [facility] Urine clarity by refractomet ry automatedOrdered By: Gilson Castro on 08-20-2022 Clarity Refractometry automated (U) Clear Clear [facility] Urine cocaine detectionOrder ed By: Gilson Castro on 08-20-2022 Cocaine Ql (U) Negative Negative [facility] Urine glucose measurement by automated test strip (mass/volume)Ordered By: Gilson Castro on 08-20-2022 Glucose Auto test strip (U) [Mass/Vol] Normal mg/dL Normal [facility] Urine hemoglobin detection b y automated test stripOrdered By: Gilson Castro on 08-20-2022 Hemoglobin Auto test strip Ql (U) Negative Negative [facility] Urine leukocyte esterase det ection by automated test stripOrdered By: Gilson Castro on 08-20-2022 Leukocyte esterase Auto test strip Ql (U) 1+ Negative [facility] Urobilinogen Auto test strip (U) [Mass/Vol]Ordered By: Gilson Castro on 08-20-2022 Urobilinogen (U) [Mass/Vol] Normal mg/dL Normal [facility] pH Auto test strip (U)Ordere d By: Gilson Castro on 08-20-2022 pH (U) 7.0 [pH] 5.0-9.0 [facility] Automated erythrocytes count in urine sediment (number/area)Ordered By: Gilson Castro on 08-19-2022 RBC Auto (Urine sed) [#/Area] 3-4 [HPF] 0-4 [facility] Automated erythrocytes count in urine sediment (number/area)Ordered By: Colten Fry on 08-19-2022 RBC Auto (Urine sed) [#/Area] None seen [HPF] 0-4 [facility] Automated leukocytes count i n urine sediment (number/area)Ordered By: Gilson Castro on 08-19-2022 WBC Auto (Urine sed) [#/Area] 20-49 [HPF] 0-4 [facility] Automated leukocytes count i n urine sediment (number/area)Ordered By: Colten Fry on 08-19-2022 WBC Auto (Urine sed) [#/Area] 5-9 [HPF] 0-4 [facility] Automated urine hyaline cast s count (number/volume)Ordered By: Gilson Castro on 08-19-2022 Hyaline casts Auto (U) [#/Vol] None seen [LPF] 0-1 [facility] Basophils Auto (Bld) [#/Vol] Ordered By: Gilson Castro on 08-19-2022 Basophils (Bld) [#/Vol] 0.0 10*3/uL 0.0-0.1 [facility] Basophils Auto (Bld) [#/Vol] Ordered By: Colten Fry on 08-19-2022 Basophils (Bld) [#/Vol] 0.0 10*3/uL 0.0-0.1 [facility] Basophils/100 WBC Auto (Bld) Ordered By: Gilson Castro on 08-19-2022 Basophils/100 WBC (Bld) 0.2 % . [facility] Basophils/100 WBC Auto (Bld) Ordered By: Colten Fry on 08-19-2022 Basophils/100 WBC (Bld) 0.4 % . [facility] Bilirubin Test strip Ql (U)O rdered By: Gilson Castro on 08-19-2022 Bilirubin Ql (U) Negative Negative [facility] Bilirubin Test strip Ql (U)O rdered By: Colten Fry on 08-19-2022 Bilirubin Ql (U) Negative Negative [facility] Blood hemoglobin measurement (mass/volume)Ordered By: Gilson Castro on 08-19-2022 Hemoglobin (Bld) [Mass/Vol] 13.2 g/dL 12.0-16.0 [facility] Blood hemoglobin measurement (mass/volume)Ordered By: Colten Fry on 08-19-2022 Hemoglobin (Bld) [Mass/Vol] 12.8 g/dL 12.0-16.0 [facility] Blood leukocytes automated c ount (number/volume)Ordered By: Gilson Castro on 08-19-2022 WBC (Bld) [#/Vol] 15.5 10*3/uL 4.5-13.5 [facility] Blood leukocytes automated c ount (number/volume)Ordered By: Colten Fry on 08-19-2022 WBC (Bld) [#/Vol] 13.5 10*3/uL 4.5-13.5 [facility] Body fluid albumin measureme nt (mass/volume)Ordered By: Gilson Castro on 08-19-2022 Albumin (Body fld) [Mass/Vol] 4.0 g/dL 3.2-5.5 [facility] Body fluid albumin measureme nt (mass/volume)Ordered By: Colten Fry on 08-19-2022 Albumin (Body fld) [Mass/Vol] 4.5 g/dL 3.2-5.5 [facility] COVID-19 SOFIAOrdered By: Pierce Castro on 08-19-2022 SARS-CoV+SARS-CoV-2 (COVID-19) Ag IA.rapid Ql (Resp) Negative Negative [facility] Comment on above: This is a duplicate [employer] SARS Antigen (JOSE A) result to be used for statistical tracking purpose only. Casts typing in urine sedime nt by light microscopyOrdered By: Gilson Castro on 08-19-2022 Casts LM Nom (Urine sed) None seen [LPF] None Seen [facility] Casts typing in urine sedime nt by light microscopyOrdered By: Colten Fry on 08-19-2022 Casts LM Nom (Urine sed) N/A [facility] Color Auto (U)Ordered By: Pierce Castro on 08-19-2022 Color (U) Yellow Yellow [facility] Color Auto (U)Ordered By: Vida Fry on 08-19-2022 Color (U) Yellow Yellow [facility] Creatinine and Glomerular fi ltration rate.predicted panel (S/P/Bld)Ordered By: Gilson Castro on 08-19-2022 Creatinine [Mass/Vol] 0.73 mg/dL 0.44-1.03 [facility] Creatinine and Glomerular fi ltration rate.predicted panel (S/P/Bld)Ordered By: Colten Fry on 08-19-2022 Creatinine [Mass/Vol] 0.82 mg/dL 0.44-1.03 [facility] Eosinophils Auto (Bld) [#/Vo l]Ordered By: Gilson Castro on 08-19-2022 Eosinophils (Bld) [#/Vol] 0.0 10*3/uL 0.0-0.7 [facility] Eosinophils Auto (Bld) [#/Vo l]Ordered By: Colten Fry on 08-19-2022 Eosinophils (Bld) [#/Vol] 0.0 10*3/uL 0.0-0.7 [facility] Eosinophils/100 WBC Auto (Bl d)Ordered By: Gilson Castro on 08-19-2022 Eosinophils/100 WBC (Bld) 0.2 % . [facility] Eosinophils/100 WBC Auto (Bl d)Ordered By: Colten Fry on 08-19-2022 Eosinophils/100 WBC (Bld) 0.0 % . [facility] Erythrocyte distribution wid th Auto (RBC) [Ratio]Ordered By: Gilson Castro on 08-19-2022 Erythrocyte distribution width (RBC) [Ratio] 14.4 % 11.9-15.3 [facility] Erythrocyte distribution wid th Auto (RBC) [Ratio]Ordered By: Colten Fry on 08-19-2022 Erythrocyte distribution width (RBC) [Ratio] 14.3 % 11.9-15.3 [facility] Estimated glomerular filtrat ion rate (GFR) non- AmericanOrdered By: Gilson Castro on 08-19-2022 GFR/1.73 sq M.predicted among non-blacks MDRD (S/P/Bld) [Vol rate/Area] > 60 mL/Min [facility] Estimated glomerular filtrat ion rate (GFR) non- AmericanOrdered By: Colten Fry on 08-19-2022 GFR/1.73 sq M.predicted among non-blacks MDRD (S/P/Bld) [Vol rate/Area] > 60 mL/Min [facility] Globulin Calc (S) [Mass/Vol] Ordered By: Gilson Castro on 08-19-2022 Globulin (S) [Mass/Vol] 2.7 g/dL [facility] Globulin Calc (S) [Mass/Vol] Ordered By: Colten Fry on 08-19-2022 Globulin (S) [Mass/Vol] 3.0 g/dL [facility] HCG ( test) IA.rapi d Ql (U)Ordered By: Gilson Castro on 08-19-2022 HCG ( test) Ql (U) Negative [facility] HCG ( test) IA.rapi d Ql (U)Ordered By: Colten Fry on 08-19-2022 HCG ( test) Ql (U) Negative [facility] Hematocrit Auto (Bld) [Volum e fraction]Ordered By: Gilson Castro on 08-19-2022 Hematocrit (Bld) [Volume fraction] 40.6 % 36.0-46.0 [facility] Hematocrit Auto (Bld) [Volum e fraction]Ordered By: Colten Fry on 08-19-2022 Hematocrit (Bld) [Volume fraction] 39.5 % 36.0-46.0 [facility] Ketones Auto test strip (U) [Mass/Vol]Ordered By: Gilson Castro on 08-19-2022 Ketones (U) [Mass/Vol] 4+ Negative [facility] Ketones Auto test strip (U) [Mass/Vol]Ordered By: Colten Fry on 08-19-2022 Ketones (U) [Mass/Vol] 3+ Negative [facility] Laboratory - Chemistry and C hemistry - challengeOrdered By: Gilson Castro on 08-19-2022 Lipase [Catalytic activity/Vol] 24.0 U/L 22-51 [facility] Magnesium [Mass/Vol] 2.0 mg/dL 1.6-2.6 [facility] Laboratory - Hematology and Cell countsOrdered By: Gilson Castro on 08-19-2022 Nucleated RBC/100 WBC (Bld) [Ratio] 0.1 % 0-0.5 [facility] Laboratory - Hematology and Cell countsOrdered By: Colten Fry on 08-19-2022 Nucleated RBC/100 WBC (Bld) [Ratio] 0.0 % 0-0.5 [facility] Laboratory - UrinalysisOrder ed By: Colten Fry on 08-19-2022 Hyaline casts LM Ql (Urine sed) None seen [LPF] 0-8 [facility] Lymphocytes Auto (Bld) [#/Vo l]Ordered By: Gilson Castro on 08-19-2022 Lymphocytes (Bld) [#/Vol] 2.3 10*3/uL 1.20-4.8 [facility] Lymphocytes Auto (Bld) [#/Vo l]Ordered By: Colten Fry on 08-19-2022 Lymphocytes (Bld) [#/Vol] 1.0 10*3/uL 1.20-4.8 [facility] Lymphocytes/100 WBC Auto (Bl d)Ordered By: Gilson Castro on 08-19-2022 Lymphocytes/100 WBC (Bld) 14.6 % . [facility] Lymphocytes/100 WBC Auto (Bl d)Ordered By: Colten Fry on 08-19-2022 Lymphocytes/100 WBC (Bld) 7.3 % . [facility] MCH Auto (RBC) [Entitic mass ]Ordered By: Gilson Castro on 08-19-2022 MCH (RBC) [Entitic mass] 27.9 pg 25.0-35.0 [facility] MCH Auto (RBC) [Entitic mass ]Ordered By: Colten Fry on 08-19-2022 MCH (RBC) [Entitic mass] 27.7 pg 25.0-35.0 [facility] MCHC Auto (RBC) [Mass/Vol]Or dered By: Gilson Castro on 08-19-2022 MCHC (RBC) [Mass/Vol] 32.6 g/dL 31.0-37.0 [facility] MCHC Auto (RBC) [Mass/Vol]Or dered By: Colten Fry on 08-19-2022 MCHC (RBC) [Mass/Vol] 32.3 g/dL 31.0-37.0 [facility] MCV Auto (RBC) [Entitic vol] Ordered By: Gilson Castro on 08-19-2022 MCV (RBC) [Entitic vol] 85.6 fL 78-102 [facility] MCV Auto (RBC) [Entitic vol] Ordered By: Colten Fry on 08-19-2022 MCV (RBC) [Entitic vol] 85.7 fL 78-102 [facility] Monocytes Auto (Bld) [#/Vol] Ordered By: Gilson Castro on 08-19-2022 Monocytes (Bld) [#/Vol] 1.1 10*3/uL 0.1-1.00 [facility] Monocytes Auto (Bld) [#/Vol] Ordered By: Colten Fry on 08-19-2022 Monocytes (Bld) [#/Vol] 0.3 10*3/uL 0.1-1.00 [facility] Monocytes/100 WBC Auto (Bld) Ordered By: Gilson Castro on 08-19-2022 Monocytes/100 WBC (Bld) 7.3 % . [facility] Monocytes/100 WBC Auto (Bld) Ordered By: Colten Fry on 08-19-2022 Monocytes/100 WBC (Bld) 2.1 % . [facility] Neutrophils Auto (Bld) [#/Vo l]Ordered By: Gilson Castro on 08-19-2022 Neutrophils (Bld) [#/Vol] 12.1 10*3/uL 1.2-7.7 [facility] Neutrophils Auto (Bld) [#/Vo l]Ordered By: Colten Fry on 08-19-2022 Neutrophils (Bld) [#/Vol] 12.2 10*3/uL 1.2-7.7 [facility] Neutrophils/100 WBC Auto (Bl d)Ordered By: Gilson Castro on 08-19-2022 Neutrophils/100 WBC (Bld) 77.7 % . [facility] Neutrophils/100 WBC Auto (Bl d)Ordered By: Colten Fry on 08-19-2022 Neutrophils/100 WBC (Bld) 90.2 % . [facility] Nitrite Test strip Ql (U)Ord ered By: Gilson Castro on 08-19-2022 Nitrite Ql (U) Negative Negative [facility] Nitrite Test strip Ql (U)Ord ered By: Colten Fry on 08-19-2022 Nitrite Ql (U) Negative Negative [facility] No Panel InformationOrdered By: Gilson Castro on 08-19-2022 Estimated GFR () > 60 mL/Min [facility] Comment on above: GFR estimated refere nce range: According to KDOQI guidelines, <60 ml/min/1.73m2 is sufficient to diagnose a patient with chronic kidney disease. Pharmacy Creatinine Clearance (Chem 121.95 [facility] > 60 mL/Min [facility] 2.0 mg/dL 1.6-2.6 [facility] 24.0 U/L 22-51 [facility] 121.95 [facility] 15.5 10*3/uL 4.5-13.5 [facility] 0.1 % 0-0.5 [facility] SARS Antigen (LFIA) [facility] No Panel InformationOrdered By: Colten Fry on 08-19-2022 None seen [LPF] 0-8 [facility] Estimated GFR () > 60 mL/Min [facility] Comment on above: GFR estimated refere nce range: According to KDOQI guidelines, <60 ml/min/1.73m2 is sufficient to diagnose a patient with chronic kidney disease. Pharmacy Creatinine Clearance (Chem 106.97 [facility] 13.5 10*3/uL 4.5-13.5 [facility] 0.0 % 0-0.5 [facility] > 60 mL/Min [facility] 106.97 [facility] Platelet mean volume Auto (B ld) [Entitic vol]Ordered By: Gilson Castro on 08-19-2022 Platelet mean volume (Bld) [Entitic vol] 8.8 fL 6.3-10.7 [facility] Platelet mean volume Auto (B ld) [Entitic vol]Ordered By: Colten Fry on 08-19-2022 Platelet mean volume (Bld) [Entitic vol] 8.7 fL 6.3-10.7 [facility] Platelets Auto (Bld) [#/Vol] Ordered By: Gilson Castro on 08-19-2022 Platelets (Bld) [#/Vol] 314 10*3/uL 150-450 [facility] Platelets Auto (Bld) [#/Vol] Ordered By: Colten Fry on 08-19-2022 Platelets (Bld) [#/Vol] 258 10*3/uL 150-450 [facility] Protein Auto test strip (U) [Mass/Vol]Ordered By: Gilson Castro on 08-19-2022 Protein (U) [Mass/Vol] 30 mg/dL Negative Fi [facility] Protein Auto test strip (U) [Mass/Vol]Ordered By: Colten Fry on 08-19-2022 Protein (U) [Mass/Vol] Trace mg/dL Negative [facility] Protein [Mass/volume] in Ser um or PlasmaOrdered By: Gilson Castro on 08-19-2022 Protein [Mass/Vol] 6.7 g/dL 6.1-7.9 [facility] Protein [Mass/volume] in Ser um or PlasmaOrdered By: Colten Fry on 08-19-2022 Protein [Mass/Vol] 7.5 g/dL 6.1-7.9 [facility] RBC Auto (Bld) [#/Vol]Ordere d By: Gilson Castro on 08-19-2022 RBC (Bld) [#/Vol] 4.74 10*6/uL 4.10-5.10 [facility] RBC Auto (Bld) [#/Vol]Ordere d By: Colten Fry on 08-19-2022 RBC (Bld) [#/Vol] 4.60 10*6/uL 4.10-5.10 [facility] Serum or plasma alanine florez otransferase measurement without P-5'-P (enzymatic activiOrdered By: Gilson Castro on 08-19-2022 ALT No additional P-5'-P [Catalytic activity/Vol] 17 U/L [facility] Serum or plasma alanine florez otransferase measurement without P-5'-P (enzymatic activiOrdered By: Colten Fry on 08-19-2022 ALT No additional P-5'-P [Catalytic activity/Vol] 16 U/L [facility] Serum or plasma albumin/glob ulin mass ratioOrdered By: Gilson Castro on 08-19-2022 Albumin/Globulin [Mass ratio] 1.5 {ratio} [facility] Serum or plasma albumin/glob ulin mass ratioOrdered By: Colten Fry on 08-19-2022 Albumin/Globulin [Mass ratio] 1.5 {ratio} [facility] Serum or plasma alkaline justin sphatase measurement (enzymatic activity/volume)Ordered By: Gilson Castro on 08-19-2022 ALP [Catalytic activity/Vol] 51 U/L [facility] Serum or plasma alkaline justin sphatase measurement (enzymatic activity/volume)Ordered By: Colten Fry on 08-19-2022 ALP [Catalytic activity/Vol] 59 U/L [facility] Serum or plasma anion gap de terminationOrdered By: Gilson Castro on 08-19-2022 Anion gap [Moles/Vol] 13.8 mmol/L 6.0-15.0 [facility] Serum or plasma anion gap de terminationOrdered By: Colten Fry on 08-19-2022 Anion gap [Moles/Vol] 19.5 mmol/L 6.0-15.0 [facility] Serum or plasma aspartate am inotransferase measurement (enzymatic activity/volume)Ordered By: Gilson Castro on 08-19-2022 AST [Catalytic activity/Vol] 17 U/L [facility] Serum or plasma aspartate am inotransferase measurement (enzymatic activity/volume)Ordered By: Colten Fry on 08-19-2022 AST [Catalytic activity/Vol] 20 U/L [address] [place] [address] Serum or plasma calcium tammy urement (mass/volume)Ordered By: Gilson Castro on 08-19-2022 Calcium [Mass/Vol] 9.1 mg/dL 8.2-10.2 [facility] Serum or plasma calcium tammy urement (mass/volume)Ordered By: Colten Fry on 08-19-2022 Calcium [Mass/Vol] 9.8 mg/dL 8.2-10.2 [facility] Serum or plasma chloride judy surement (moles/volume)Ordered By: Gilson Castro on 08-19-2022 Chloride [Moles/Vol] 104 mmol/L 95-114 [facility] Serum or plasma chloride judy surement (moles/volume)Ordered By: Colten Fry on 08-19-2022 Chloride [Moles/Vol] 107 mmol/L 95-114 [facility] Serum or plasma creatinine m easurement with calculation of estimated glomerular filtrOrdered By: Gilson Castro on 08-19-2022 Creatinine and Glomerular filtration rate.predicted panel (S/P/Bld) 0.73 mg/dL 0.44-1.03 [facility] Serum or plasma creatinine m easurement with calculation of estimated glomerular filtrOrdered By: Colten Fry on 08-19-2022 Creatinine and Glomerular filtration rate.predicted panel (S/P/Bld) 0.82 mg/dL 0.44-1.03 [facility] Serum or plasma glucose tammy urement (mass/volume)Ordered By: Gilson Castro on 08-19-2022 Glucose [Mass/Vol] 108 mg/dL 70-100 [facility] Comment on above: ADA recommended refe [...] on 08-19-2022 Glucose [Mass/Vol] 131 mg/dL 70-100 [facility] Comment on above: ADA recommended refe [...] on 08-19-2022 Potassium [Moles/Vol] 3.1 mmol/L 3.5-5.1 [facility] Serum or plasma potassium me asurement (moles/volume)Ordered By: Colten Fry on 08-19-2022 Potassium [Moles/Vol] 3.9 mmol/L 3.5-5.1 [facility] Serum or plasma sodium measu rement (moles/volume)Ordered By: Gilson Castro on 08-19-2022 Sodium [Moles/Vol] 138 mmol/L 136-146 [facility] Serum or plasma sodium measu rement (moles/volume)Ordered By: Colten Fry on 08-19-2022 Sodium [Moles/Vol] 142 mmol/L 136-146 [facility] Serum or plasma total biliru bin measurement (mass/volume)Ordered By: Gilson Castro on 08-19-2022 Bilirubin [Mass/Vol] 0.5 mg/dL 0.3-1.2 [facility] Serum or plasma total biliru bin measurement (mass/volume)Ordered By: Colten Fry on 08-19-2022 Bilirubin [Mass/Vol] 0.6 mg/dL 0.3-1.2 [facility] Serum or plasma total carbon dioxide measurement (moles/volume)Ordered By: Gilson Castro on 08-19-2022 CO2 [Moles/Vol] 23.3 mmol/L 22.0-30.0 [facility] Serum or plasma total carbon dioxide measurement (moles/volume)Ordered By: Colten Fry on 08-19-2022 CO2 [Moles/Vol] 19.4 mmol/L 22.0-30.0 [facility] Serum or plasma urea nitroge n measurement (mass/volume)Ordered By: Gilson Castro on 08-19-2022 Urea nitrogen [Mass/Vol] 15 mg/dL 08-20 [facility] Serum or plasma urea nitroge n measurement (mass/volume)Ordered By: Colten Fry on 08-19-2022 Urea nitrogen [Mass/Vol] 14 mg/dL 08-20 [facility] Specific gravity Auto test s trip (U) [Rel density]Ordered By: Gilson Castro on 08-19-2022 Specific gravity (U) [Rel density] 1.026 1.001-1.03 0 [facility] Specific gravity Auto test s trip (U) [Rel density]Ordered By: Colten Fry on 08-19-2022 Specific gravity (U) [Rel density] 1.023 1.001-1.03 0 [facility] Squamous epithelial cells de tection in urine sediment by light microscopyOrdered By: Gilson Castro on 08-19-2022 Epithelial cells.squamous LM Ql (Urine sed) 20-30 [HPF] 0-2 [facility] Squamous epithelial cells de tection in urine sediment by light microscopyOrdered By: Colten Fry on 08-19-2022 Epithelial cells.squamous LM Ql (Urine sed) 20-30 [HPF] 0-2 [facility] Urine bacteria detection by automated methodOrdered By: Gilson Castro on 08-19-2022 Bacteria Auto Ql (U) 2+ None Seen [facility] Urine bacteria detection by automated methodOrdered By: Colten Fry on 08-19-2022 Bacteria Auto Ql (U) 1+ None Seen [facility] Urine clarity by refractomet ry automatedOrdered By: Gilson Castro on 08-19-2022 Clarity Refractometry automated (U) Turbid Clear [facility] Urine clarity by refractomet ry automatedOrdered By: Colten Fry on 08-19-2022 Clarity Refractometry automated (U) Cloudy Clear [facility] Urine glucose measurement by automated test strip (mass/volume)Ordered By: Gilson Castro on 08-19-2022 Glucose Auto test strip (U) [Mass/Vol] Normal mg/dL Normal [facility] Urine glucose measurement by automated test strip (mass/volume)Ordered By: Colten Fry on 08-19-2022 Glucose Auto test strip (U) [Mass/Vol] Normal mg/dL Normal [facility] Urine hemoglobin detection b y automated test stripOrdered By: Gilson Castro on 08-19-2022 Hemoglobin Auto test strip Ql (U) Negative Negative [facility] Urine hemoglobin detection b y automated test stripOrdered By: Colten Fry on 08-19-2022 Hemoglobin Auto test strip Ql (U) Negative Negative [facility] Urine leukocyte esterase det ection by automated test stripOrdered By: Gilosn Castro on 08-19-2022 Leukocyte esterase Auto test strip Ql (U) 2+ Negative [facility] Urine leukocyte esterase det ection by automated test stripOrdered By: Colten Fry on 08-19-2022 Leukocyte esterase Auto test strip Ql (U) 1+ Negative [facility] Urobilinogen Auto test strip (U) [Mass/Vol]Ordered By: Gilson Castro on 08-19-2022 Urobilinogen (U) [Mass/Vol] Normal mg/dL Normal [facility] Urobilinogen Auto test strip (U) [Mass/Vol]Ordered By: Colten Fry on 08-19-2022 Urobilinogen (U) [Mass/Vol] Normal mg/dL Normal [facility] pH Auto test strip (U)Ordere d By: Gilson Castro on 08-19-2022 pH (U) 8.0 [pH] 5.0-9.0 [facility] pH Auto test strip (U)Ordere d By: Colten Fry on 08-19-2022 pH (U) 6.0 [pH] 5.0-9.0 [facility] COVID-19 SOFIAOrdered By: Lul Rivera on 08-18-2022 SARS-CoV+SARS-CoV-2 (COVID-19) Ag IA.rapid Ql (Resp) Negative Negative [facility] Comment on above: This is a duplicate [employer] SARS Antigen (JOSE A) result to be used for statistical tracking purpose only. No Panel InformationOrdered By: Joss Rivera on 08-18-2022 SARS Antigen (LFIA) [facility] Basophils Auto (Bld) [#/Vol] Ordered By: Modesta Chand on 06-25-2022 Basophils (Bld) [#/Vol] 0.1 10*3/uL 0.0-0.1 [facility] Basophils/100 WBC Auto (Bld) Ordered By: Modesta Chand on 06-25-2022 Basophils/100 WBC (Bld) 1.2 % . [facility] Blood hemoglobin measurement (mass/volume)Ordered By: Modesta Chand on 06-25-2022 Hemoglobin (Bld) [Mass/Vol] 13.8 g/dL 12.0-16.0 [facility] Blood leukocytes automated c ount (number/volume)Ordered By: Modesta Chand on 06-25-2022 WBC (Bld) [#/Vol] 7.9 10*3/uL 4.5-13.5 [facility] Body fluid albumin measureme nt (mass/volume)Ordered By: Modesta Chand on 06-25-2022 Albumin (Body fld) [Mass/Vol] 4.5 g/dL 3.2-5.5 [facility] CT biopsyOrdered By: Yasmine Chand on 06-25-2022 Transferrin [Mass/Vol] 328 mg/dL 180-[facility] Creat[facility] and Glomerular fi ltration rate.predicted panel (S/P/Bld)Ordered By: Modesta Chand on 06-25-2022 Creatinine [Mass/Vol] 0.67 mg/dL 0.44-1.03 [facility] Eosinophils Auto (Bld) [#/Vo l]Ordered By: Modesta Chand on 06-25-2022 Eosinophils (Bld) [#/Vol] 0.6 10*3/uL 0.0-0.7 [facility] Eosinophils/100 WBC Auto (Bl d)Ordered By: Modesta Chand on 06-25-2022 Eosinophils/100 WBC (Bld) 7.2 % . [facility] Erythrocyte distribution wid th Auto (RBC) [Ratio]Ordered By: Modesta Chand on 06-25-2022 Erythrocyte distribution width (RBC) [Ratio] 13.6 % 11.9-15.3 [facility] Estimated glomerular filtrat ion rate (GFR) non- AmericanOrdered By: Modesta Chand on 06-25-2022 GFR/1.73 sq M.predicted among non-blacks MDRD (S/P/Bld) [Vol rate/Area] > 60 mL/Min [facility] Ferritin [Mass/volume] in Se rum or PlasmaOrdered By: Modesta Chand on 06-25-2022 Ferritin [Mass/Vol] 28.5 ng/mL 11-306.8 [facility] Globulin Calc (S) [Mass/Vol] Ordered By: Modesta Chand on 06-25-2022 Globulin (S) [Mass/Vol] 2.5 g/dL [facility] Hematocrit Auto (Bld) [Volum e fraction]Ordered By: Modesta Chand on 06-25-2022 Hematocrit (Bld) [Volume fraction] 42.3 % 36.0-46.0 [facility] Iron [Mass/volume] in Serum or PlasmaOrdered By: Modesta Chand on 06-25-2022 Iron [Mass/Vol] 52 ug/dL 40-150 [facility] Iron binding capacity [Mass/ volume] in Serum or PlasmaOrdered By: Modesta Chand on 06-25-2022 Iron binding capacity [Mass/Vol] 459 ug/dL 255-450 [facility] Iron saturation [Mass Fracti on] in Serum or PlasmaOrdered By: Modesta Chand on 06-25-2022 Iron saturation [Mass fraction] 11.0 % 20-50 [facility] Laboratory - Hematology and Cell countsOrdered By: Modesta Chand on 06-25-2022 Nucleated RBC/100 WBC (Bld) [Ratio] 0.0 % 0-0.5 [facility] Lymphocytes Auto (Bld) [#/Vo l]Ordered By: Modesta Chand on 06-25-2022 Lymphocytes (Bld) [#/Vol] 2.1 10*3/uL 1.20-4.8 [facility] Lymphocytes/100 WBC Auto (Bl d)Ordered By: Modesta Chand on 06-25-2022 Lymphocytes/100 WBC (Bld) 26.9 % . [facility] MCH Auto (RBC) [Entitic mass ]Ordered By: Modesta Chand on 06-25-2022 MCH (RBC) [Entitic mass] 28.1 pg 25.0-35.0 [facility] MCHC Auto (RBC) [Mass/Vol]Or dered By: Modesta Chand on 06-25-2022 MCHC (RBC) [Mass/Vol] 32.7 g/dL 31.0-37.0 [facility] MCV Auto (RBC) [Entitic vol] Ordered By: Modesta Chand on 06-25-2022 MCV (RBC) [Entitic vol] 85.8 fL 78-102 [facility] Monocytes Auto (Bld) [#/Vol] Ordered By: Modesta Chand on 06-25-2022 Monocytes (Bld) [#/Vol] 0.6 10*3/uL 0.1-1.00 [facility] Monocytes/100 WBC Auto (Bld) Ordered By: Modesta Chand on 06-25-2022 Monocytes/100 WBC (Bld) 7.2 % . [facility] Neutrophils Auto (Bld) [#/Vo l]Ordered By: Modesta Chand on 06-25-2022 Neutrophils (Bld) [#/Vol] 4.5 10*3/uL 1.2-7.7 [facility] Neutrophils/100 WBC Auto (Bl d)Ordered By: Modesta Chand on 06-25-2022 Neutrophils/100 WBC (Bld) 57.5 % . [facility] No Panel InformationOrdered By: Modesta Chand on 06-25-2022 25-Hydroxy Vitamin D Total 35.9 ng/mL 30-100 [facility] Comment on above: VITAMIN D STATUS 25( [place])VITAMIN D RANGE (ng/mL) Deficient <20 Insufficient 20 to <30 Sufficient 30 to 100 Reference: Danica MF,Chayo NC, Sony GUERRERO, et al. Evaluation,treatment, and prevention of vitamin D deficiency; an Endocrine Society clinical practice guideline. JCEM. 2010; 96(7):1911-30. Absolute Reticulocyte Count 0.066 10*6/uL 0.024-0.08 4 [facility] Estimated GFR () > 60 mL/Min [facility] Comment on above: GFR estimated refere nce range: According to KDOQI guidelines, <60 ml/min/1.73m2 is sufficient to diagnose a patient with chronic kidney disease. Percent Reticulocyte Count 1.3 % 0.5-1.5 [facility] Pharmacy Creatinine Clearance (Chem N/A [facility] Platelet mean volume Auto (B ld) [Entitic vol]Ordered By: Modesta Chand on 06-25-2022 Platelet mean volume (Bld) [Entitic vol] 9.0 fL 6.3-10.7 [facility] Platelets Auto (Bld) [#/Vol] Ordered By: Modesta Chand on 06-25-2022 Platelets (Bld) [#/Vol] 263 10*3/uL 150-450 [facility] Protein [Mass/volume] in Ser um or PlasmaOrdered By: Modesta Chand on 06-25-2022 Protein [Mass/Vol] 7.0 g/dL 6.1-7.9 [facility] RBC Auto (Bld) [#/Vol]Ordere d By: Modesta Chand on 06-25-2022 RBC (Bld) [#/Vol] 4.94 10*6/uL 4.10-5.10 [facility] Serum or plasma alanine florez otransferase measurement without P-5'-P (enzymatic activiOrdered By: Modesta Chand on 06-25-2022 ALT No additional P-5'-P [Catalytic activity/Vol] 18 U/L 10-60 [facility] Serum or plasma albumin/glob ulin mass ratioOrdered By: Modesta Chand on 06-25-2022 Albumin/Globulin [Mass ratio] 1.8 {ratio} [facility] Serum or plasma alkaline justin sphatase measurement (enzymatic activity/volume)Ordered By: Modesta Chand on 06-25-2022 ALP [Catalytic activity/Vol] 65 U/L 32-92 [facility] Serum or plasma aspartate am inotransferase measurement (enzymatic activity/volume)Ordered By: Modesta Chand on 06-25-2022 AST [Catalytic activity/Vol] 18 U/L 10-42 [facility] Serum or plasma calcium tammy urement (mass/volume)Ordered By: Modesta Chand on 06-25-2022 Calcium [Mass/Vol] 10.2 mg/dL 8.2-10.2 [facility] Serum or plasma chloride judy surement (moles/volume)Ordered By: Modesta Chand on 06-25-2022 Chloride [Moles/Vol] 102 mmol/L 95-114 [facility] Serum or plasma glucose tammy urement (mass/volume)Ordered By: Modesta Chand on 06-25-2022 Glucose [Mass/Vol] 87 mg/dL 70-100 [facility] Comment on above: ADA recommended refe rence range Random Glucose Reference Range is dependent on time and content of last meal. Glucose of more than 200 mg/dL in a nonstressed, ambulatory subject supports the diagnosis of Diabetes Mellitus. Serum or plasma potassium me asurement (moles/volume)Ordered By: Modesta Chand on 06-25-2022 Potassium [Moles/Vol] 4.4 mmol/L 3.5-5.1 [facility] Serum or plasma sodium measu rement (moles/volume)Ordered By: Modesta Chand on 06-25-2022 Sodium [Moles/Vol] 137 mmol/L 136-146 [facility] Serum or plasma total biliru bin measurement (mass/volume)Ordered By: Modesta Chand on 06-25-2022 Bilirubin [Mass/Vol] 0.4 mg/dL 0.3-1.2 [facility] Serum or plasma total carbon dioxide measurement (moles/volume)Ordered By: Modesta Chand on 06-25-2022 CO2 [Moles/Vol] 23.8 mmol/L 22.0-30.0 [facility] Serum or plasma urea nitroge n measurement (mass/volume)Ordered By: Modesta Chand on 06-25-2022 Urea nitrogen [Mass/Vol] 14 mg/dL 9- [facility] TSH DL <= 0.005 mIU/L QnOrde red By: Modesta Chand on 06-25-2022 TSH Qn 1.05 m[IU]/L 0.45-5.33 [facility] Thyroxine (T4) free [Mass/vo lume] in Serum or PlasmaOrdered By: Modesta Chand on 06-25-2022 Free T4 [Mass/Vol] 0.74 ng/dL 0.61-1.12 [facility] HCG ( test) IA.rapi d Ql (U)Ordered By: Brennen Britt on 06-09-2022 HCG ( test) Ql (U) Negative [facility] COVID-19 Positive/NegativeOr dered By: Brennen Britt on 06-07-2022 SARS-CoV-2 (COVID-19) N gene JANAK+probe Ql (Resp) Negative Negative [facility] Comment on above: Testing for SARS-CoV -2 by RT-PCR This test was developed and its performance characteristics determined by [employer] ([place]) and validated at the [facility]. This test has not been FDA cleared [...] on 05-26-2022 Albumin [Mass/Vol] 3.9 g/dL 3.2-5.5 [facility] Basophils Auto (Bld) [#/Vol] Ordered By: Modesta Chand on 05-26-2022 Basophils (Bld) [#/Vol] 0.1 10*3/uL 0.0-0.1 [facility] Basophils/100 WBC Auto (Bld) Ordered By: Modesta Chand on 05-26-2022 Basophils/100 WBC (Bld) 1.1 % . [facility] Blood hemoglobin measurement (mass/volume)Ordered By: Modesta Chand on 05-26-2022 Hemoglobin (Bld) [Mass/Vol] 13.6 g/dL 12.0-16.0 [facility] Blood leukocytes automated c ount (number/volume)Ordered By: Modesta Chand on 05-26-2022 WBC (Bld) [#/Vol] 10.6 10*3/uL 4.5-13.5 [facility] C reactive protein [Mass/vol ume] in Serum or PlasmaOrdered By: Modesta Chand on 05-26-2022 CRP [Mass/Vol] 0.6 mg/dL 0.0-1.0 [facility] CT biopsyOrdered By: Yasmine Chand on 05-26-2022 Transferrin [Mass/Vol] 292 mg/dL 180-380 [facility] Creatinine and Glomerular fi ltration rate.predicted panel (S/P/Bld)Ordered By: Modesta Chand on 05-26-2022 Creatinine [Mass/Vol] 0.63 mg/dL 0.44-1.03 [facility] Eosinophils Auto (Bld) [#/Vo l]Ordered By: Modesta Chand on 05-26-2022 Eosinophils (Bld) [#/Vol] 0.4 10*3/uL 0.0-0.7 [facility] Eosinophils/100 WBC Auto (Bl d)Ordered By: Modesta Chand on 05-26-2022 Eosinophils/100 WBC (Bld) 3.6 % . [facility] Erythrocyte distribution wid th Auto (RBC) [Ratio]Ordered By: Modesta Chand on 05-26-2022 Erythrocyte distribution width (RBC) [Ratio] 13.7 % 11.9-15.3 [facility] Erythrocyte sedimentation ra te by Photometric methodOrdered By: Modesta Chand on 05-26-2022 ESR Photometric method (Bld) [Velocity] 5 mm/hr 0-19 [facility] Estimated glomerular filtrat ion rate (GFR) non- AmericanOrdered By: Modesta Chand on 05-26-2022 GFR/1.73 sq M.predicted among non-blacks MDRD (S/P/Bld) [Vol rate/Area] > 60 mL/Min [facility] Ferritin [Mass/volume] in Se rum or PlasmaOrdered By: Modesta Chand on 05-26-2022 Ferritin [Mass/Vol] 14.2 ng/mL 11-306.8 [facility] Folate [Mass/volume] in Seru m or PlasmaOrdered By: Modesta Chand on 05-26-2022 Folate [Mass/Vol] 13.0 ng/mL >5.9 [facility] Comment on above: Folate reference ran ge: >5.9 ng/ml The WHO technical consultation on folate and vitamin b12 deficiencies has determined that folate concentrations less than 4 ng/ml are considered deficient. Globulin Calc (S) [Mass/Vol] Ordered By: Modesta Chand on 05-26-2022 Globulin (S) [Mass/Vol] 2.3 g/dL [facility] Glucose mean value [Mass/vol ume] in Blood Estimated from glycated hemoglobinOrdered By: Modesta Chand on 05-26-2022 Average glucose Estimated from glycated hemoglobin (Bld) [Mass/Vol] 111 mg/dL [facility] Hematocrit Auto (Bld) [Volum e fraction]Ordered By: Modesta Chand on 05-26-2022 Hematocrit (Bld) [Volume fraction] 41.4 % 36.0-46.0 [facility] Hemoglobin A1c percentageOrd ered By: Modesta Chand on 05-26-2022 HbA1c (Bld) [Mass fraction] 5.5 % 4.3-5.6 [facility] Comment on above: Increased risk for d iabetes: 5.7 - 6.4 diabetes: >6.4 glycemic control for adults with diabetes: <7.0 Iron [Mass/volume] in Serum or PlasmaOrdered By: Modesta Chand on 05-26-2022 Iron [Mass/Vol] 63 ug/dL 40-150 [facility] Iron binding capacity [Mass/ volume] in Serum or PlasmaOrdered By: Modesta Chand on 05-26-2022 Iron binding capacity [Mass/Vol] 409 ug/dL 255-450 [facility] Iron saturation [Mass Fracti on] in Serum or PlasmaOrdered By: Modesta Chand on 05-26-2022 Iron saturation [Mass fraction] 15.0 % 20-50 [facility] Laboratory - Chemistry and C hemistry - challengeOrdered By: Modesta Chand on 05-26-2022 Cobalamin (Vitamin B12) [Mass/Vol] 329 pg/mL 180-914 [facility] Laboratory - Hematology and Cell countsOrdered By: Modesta Chand on 05-26-2022 Nucleated RBC/100 WBC (Bld) [Ratio] 0.0 % 0-0.5 [facility] Lymphocytes Auto (Bld) [#/Vo l]Ordered By: Modesta Chand on 05-26-2022 Lymphocytes (Bld) [#/Vol] 2.3 10*3/uL 1.20-4.8 [facility] Lymphocytes/100 WBC Auto (Bl d)Ordered By: Modesta Chand on 05-26-2022 Lymphocytes/100 WBC (Bld) 21.6 % . [facility] MCH Auto (RBC) [Entitic mass ]Ordered By: Modesta Chand on 05-26-2022 MCH (RBC) [Entitic mass] 28.6 pg 25.0-35.0 [facility] MCHC Auto (RBC) [Mass/Vol]Or dered By: Modesta Chand on 05-26-2022 MCHC (RBC) [Mass/Vol] 33.0 g/dL 31.0-37.0 [facility] MCV Auto (RBC) [Entitic vol] Ordered By: Modesta Chand on 05-26-2022 MCV (RBC) [Entitic vol] 86.6 fL 78-102 [facility] Monocytes Auto (Bld) [#/Vol] Ordered By: Modesta Chand on 05-26-2022 Monocytes (Bld) [#/Vol] 0.6 10*3/uL 0.1-1.00 [facility] Monocytes/100 WBC Auto (Bld) Ordered By: Modesta Chand on 05-26-2022 Monocytes/100 WBC (Bld) 5.9 % . [facility] Neutrophils Auto (Bld) [#/Vo l]Ordered By: Modesta Chand on 05-26-2022 Neutrophils (Bld) [#/Vol] 7.2 10*3/uL 1.2-7.7 [facility] Neutrophils/100 WBC Auto (Bl d)Ordered By: Modesta Chand on 05-26-2022 Neutrophils/100 WBC (Bld) 67.8 % . [facility] No Panel InformationOrdered By: Modesta Chand on 05-26-2022 25-Hydroxy Vitamin D Total 26.9 ng/mL 30-100 [facility] Comment on above: VITAMIN D STATUS 25( [place])VITAMIN D RANGE (ng/mL) Deficient <20 Insufficient 20 to <30 Sufficient 30 to 100 Reference: Danica MF,Chayo WOODRUFF, Sony GUERRERO, et al. Evaluation,treatment, and prevention of vitamin D deficiency; an Endocrine Society clinical practice guideline. JCEM. 2010; 96(7):1911-30. Estimated GFR () > 60 mL/Min [facility] Comment on above: GFR estimated refere nce range: According to KDOQI guidelines, <60 ml/min/1.73m2 is sufficient to diagnose a patient with chronic kidney disease. Pharmacy Creatinine Clearance (Chem N/A [facility] Platelet mean volume Auto (B ld) [Entitic vol]Ordered By: Modesta Chand on 05-26-2022 Platelet mean volume (Bld) [Entitic vol] 8.9 fL 6.3-10.7 [facility] Platelets Auto (Bld) [#/Vol] Ordered By: Modesta Chand on 05-26-2022 Platelets (Bld) [#/Vol] 286 10*3/uL 150-450 [facility] Protein [Mass/volume] in Ser um or PlasmaOrdered By: Modesta Chand on 05-26-2022 Protein [Mass/Vol] 6.2 g/dL 6.1-7.9 [facility] RBC Auto (Bld) [#/Vol]Ordere d By: Modesta Chand on 05-26-2022 RBC (Bld) [#/Vol] 4.78 10*6/uL 4.10-5.10 [facility] Serum nuclear antibody titer Ordered By: Modesta Chand on 05-26-2022 Nuclear Ab (S) [Titer] Negative . [facility] Comment on above: Negative <1:80 Borderline 1:80 Positive >1:80 ICAP nomenclature: AC-0 For more information about Hep-2 cell patterns use ANApatterns.org, the official website for the International Consensus on Antinuclear Antibody (EDMOND) Patterns (ICAP). Performed at: - [facility] [id number] [employer]s Receivable Collector: James Nelson PhD, Phone: [phone] Serum or plasma alanine florez otransferase measurement without P-5'-P (enzymatic activiOrdered By: Modesta Chand on 05-26-2022 ALT No additional P-5'-P [Catalytic activity/Vol] 50 U/L 10-60 [facility] Serum or plasma albumin/glob ulin mass ratioOrdered By: Modesta Chand on 05-26-2022 Albumin/Globulin [Mass ratio] 1.7 {ratio} [facility] Serum or plasma alkaline justin sphatase measurement (enzymatic activity/volume)Ordered By: Modesta Chand on 05-26-2022 ALP [Catalytic activity/Vol] 58 U/L 32-92 [facility] Serum or plasma aspartate am inotransferase measurement (enzymatic activity/volume)Ordered By: Modesta Chand on 05-26-2022 AST [Catalytic activity/Vol] 25 U/L 10-42 [facility] Serum or plasma calcium tammy urement (mass/volume)Ordered By: Modesta Chand on 05-26-2022 Calcium [Mass/Vol] 9.3 mg/dL 8.2-10.2 [facility] Serum or plasma chloride judy surement (moles/volume)Ordered By: Modesta Chand on 05-26-2022 Chloride [Moles/Vol] 103 mmol/L 95-114 [facility] Serum or plasma glucose tammy urement (mass/volume)Ordered By: Modesta Chand on 05-26-2022 Glucose [Mass/Vol] 111 mg/dL 70-100 [facility] Comment on above: ADA recommended refe rence range Random Glucose Reference Range is dependent on time and content of last meal. Glucose of more than 200 mg/dL in a nonstressed, ambulatory subject supports the diagnosis of Diabetes Mellitus. Serum or plasma potassium me asurement (moles/volume)Ordered By: Modesta Chand on 05-26-2022 Potassium [Moles/Vol] 4.3 mmol/L 3.5-5.1 [facility] Serum or plasma sodium measu rement (moles/volume)Ordered By: Modesta Chand on 05-26-2022 Sodium [Moles/Vol] 137 mmol/L 136-146 [facility] Serum or plasma total biliru bin measurement (mass/volume)Ordered By: Modesta Chand on 05-26-2022 Bilirubin [Mass/Vol] 0.5 mg/dL 0.3-1.2 [facility] Serum or plasma total carbon dioxide measurement (moles/volume)Ordered By: Modesta Chand on 05-26-2022 CO2 [Moles/Vol] 24.9 mmol/L 22.0-30.0 [facility] Serum or plasma urea nitroge n measurement (mass/volume)Ordered By: Modesta Chand on 05-26-2022 Urea nitrogen [Mass/Vol] 9 mg/dL 08-20 [facility] Urine culture routineOrdered By: Gilson Castro on 05-18-2022 Bacteria identified Cx Nom (U) 2 Days [facility] Amphetamine Screen Ql (U)Ord ered By: Gilson Castro on 05-16-2022 Amphetamines Ql (U) Negative Negative [facility] Automated erythrocytes count in urine sediment (number/area)Ordered By: Gilson Castro on 05-16-2022 RBC Auto (Urine sed) [#/Area] 3-4 [HPF] 0-4 [facility] Automated leukocytes count i n urine sediment (number/area)Ordered By: Gilson Castro on 05-16-2022 WBC Auto (Urine sed) [#/Area] 5-9 [HPF] 0-4 [facility] Automated urine hyaline cast s count (number/volume)Ordered By: Gilson Castro on 05-16-2022 Hyaline casts Auto (U) [#/Vol] None seen [LPF] 0-1 [facility] Barbiturates [Presence] in U rineOrdered By: Gilson Castro on 05-16-2022 Barbiturates Ql (U) Positive Negative [facility] Basophils Auto (Bld) [#/Vol] Ordered By: Gilson Castro on 05-16-2022 Basophils (Bld) [#/Vol] 0.0 10*3/uL 0.0-0.1 [facility] Basophils/100 WBC Auto (Bld) Ordered By: Gilson Castro on 05-16-2022 Basophils/100 WBC (Bld) 0.4 % . [facility] Benzodiazepines [Presence] i n UrineOrdered By: Gilson Castro on 05-16-2022 Benzodiazepines Ql (U) Negative [facility] Bilirubin Test strip Ql (U)O rdered By: Gilson Castro on 05-16-2022 Bilirubin Ql (U) Negative Negative [facility] Blood hemoglobin measurement (mass/volume)Ordered By: Gilson Castro on 05-16-2022 Hemoglobin (Bld) [Mass/Vol] 13.4 g/dL 12.0-16.0 [facility] Blood leukocytes automated c ount (number/volume)Ordered By: Gilson Castro on 05-16-2022 WBC (Bld) [#/Vol] 10.0 10*3/uL 4.5-13.5 [facility] Body fluid albumin measureme nt (mass/volume)Ordered By: Gilson Castro on 05-16-2022 Albumin (Body fld) [Mass/Vol] 4.3 g/dL 3.2-5.5 [facility] Cannabinoids [Presence] in U rine by Screen methodOrdered By: Gilson Castro on 05-16-2022 Cannabinoids Screen Ql (U) Positive Negative [facility] Comment on above: These are unconfirme d [...] (Urine sed) None seen [LPF] None Seen [facility] Color Auto (U)Ordered By: Peirce Castro on 05-16-2022 Color (U) Yellow Yellow [facility] Creatinine and Glomerular fi ltration rate.predicted panel (S/P/Bld)Ordered By: Gilson Castro on 05-16-2022 Creatinine [Mass/Vol] 0.80 mg/dL 0.44-1.03 [facility] Eosinophils Auto (Bld) [#/Vo l]Ordered By: Gilson Castro on 05-16-2022 Eosinophils (Bld) [#/Vol] 0.1 10*3/uL 0.0-0.7 [facility] Eosinophils/100 WBC Auto (Bl d)Ordered By: Gilson Castro on 05-16-2022 Eosinophils/100 WBC (Bld) 0.7 % . [facility] Erythrocyte distribution wid th Auto (RBC) [Ratio]Ordered By: Gilson Castro on 05-16-2022 Erythrocyte distribution width (RBC) [Ratio] 13.4 % 11.9-15.3 [facility] Estimated glomerular filtrat ion rate (GFR) non- AmericanOrdered By: Gilson Castro on 05-16-2022 GFR/1.73 sq M.predicted among non-blacks MDRD (S/P/Bld) [Vol rate/Area] > 60 mL/Min [facility] Globulin Calc (S) [Mass/Vol] Ordered By: Gilson Castro on 05-16-2022 Globulin (S) [Mass/Vol] 2.7 g/dL [facility] HCG ( test) IA.rapi d Ql (U)Ordered By: Gilson Castro on 05-16-2022 HCG ( test) Ql (U) Negative [facility] Hematocrit Auto (Bld) [Volum e fraction]Ordered By: Gilson Castro on 05-16-2022 Hematocrit (Bld) [Volume fraction] 39.4 % 36.0-46.0 [facility] Ketones Auto test strip (U) [Mass/Vol]Ordered By: Gilson Castro on 05-16-2022 Ketones (U) [Mass/Vol] 3+ Negative [facility] Laboratory - Chemistry and C hemistry - challengeOrdered By: Gilson Castro on 05-16-2022 Lipase [Catalytic activity/Vol] 26.0 U/L 22-51 [facility] Laboratory - Drug toxicology Ordered By: Gilson Castro on 05-16-2022 Opiates Ql (U) Negative Negative [facility] Laboratory - Hematology and Cell countsOrdered By: Gilson Castro on 05-16-2022 Nucleated RBC/100 WBC (Bld) [Ratio] 0.0 % 0-0.5 [facility] Lymphocytes Auto (Bld) [#/Vo l]Ordered By: Gilson Castro on 05-16-2022 Lymphocytes (Bld) [#/Vol] 1.9 10*3/uL 1.20-4.8 [facility] Lymphocytes/100 WBC Auto (Bl d)Ordered By: Gilson Castro on 05-16-2022 Lymphocytes/100 WBC (Bld) 18.7 % . [facility] MCH Auto (RBC) [Entitic mass ]Ordered By: Gilson Castro on 05-16-2022 MCH (RBC) [Entitic mass] 28.6 pg 25.0-35.0 [facility] MCHC Auto (RBC) [Mass/Vol]Or dered By: Gilson Castro on 05-16-2022 MCHC (RBC) [Mass/Vol] 34.1 g/dL 31.0-37.0 [facility] MCV Auto (RBC) [Entitic vol] Ordered By: Gilson Castro on 05-16-2022 MCV (RBC) [Entitic vol] 84.0 fL 78-102 [facility] Monocytes Auto (Bld) [#/Vol] Ordered By: Gilson Castro on 05-16-2022 Monocytes (Bld) [#/Vol] 0.9 10*3/uL 0.1-1.00 [facility] Monocytes/100 WBC Auto (Bld) Ordered By: Gilson Castro on 05-16-2022 Monocytes/100 WBC (Bld) 9.2 % . [facility] Neutrophils Auto (Bld) [#/Vo l]Ordered By: Gilson Castro on 05-16-2022 Neutrophils (Bld) [#/Vol] 7.1 10*3/uL 1.2-7.7 [facility] Neutrophils/100 WBC Auto (Bl d)Ordered By: Gilson Castro on 05-16-2022 Neutrophils/100 WBC (Bld) 71.0 % . [facility] Nitrite Test strip Ql (U)Ord ered By: Gilson Castro on 05-16-2022 Nitrite Ql (U) Negative Negative [facility] No Panel InformationOrdered By: Gilson Castro on 05-16-2022 Estimated GFR () > 60 mL/Min [facility] Comment on above: GFR estimated refere nce range: According to KDOQI guidelines, <60 ml/min/1.73m2 is sufficient to diagnose a patient with chronic kidney disease. Pharmacy Creatinine Clearance (Chem 109.65 [facility] Phencyclidine Screen Ql (U)O rdered By: Gilson Castro on 05-16-2022 Phencyclidine Ql (U) Negative Negative [facility] Platelet mean volume Auto (B ld) [Entitic vol]Ordered By: Gilson Castro on 05-16-2022 Platelet mean volume (Bld) [Entitic vol] 8.5 fL 6.3-10.7 [facility] Platelets Auto (Bld) [#/Vol] Ordered By: Gilson Castro on 05-16-2022 Platelets (Bld) [#/Vol] 241 10*3/uL 150-450 [facility] Protein Auto test strip (U) [Mass/Vol]Ordered By: Gilson Castro on 05-16-2022 Protein (U) [Mass/Vol] Trace mg/dL Negative [facility] Protein [Mass/volume] in Ser um or PlasmaOrdered By: Gilson Castro on 05-16-2022 Protein [Mass/Vol] 7.0 g/dL 6.1-7.9 [facility] RBC Auto (Bld) [#/Vol]Ordere d By: Gilson Castro on 05-16-2022 RBC (Bld) [#/Vol] 4.69 10*6/uL 4.10-5.10 [facility] Serum or plasma alanine florez otransferase measurement without P-5'-P (enzymatic activiOrdered By: Gilson Castro on 05-16-2022 ALT No additional P-5'-P [Catalytic activity/Vol] 23 U/L 10-60 [facility] Serum or plasma albumin/glob ulin mass ratioOrdered By: Gilson Castro on 05-16-2022 Albumin/Globulin [Mass ratio] 1.6 {ratio} [facility] Serum or plasma alkaline justin sphatase measurement (enzymatic activity/volume)Ordered By: Gilson Castro on 05-16-2022 ALP [Catalytic activity/Vol] 58 U/L 32-92 [facility] Serum or plasma aspartate am inotransferase measurement (enzymatic activity/volume)Ordered By: Gilson Castro on 05-16-2022 AST [Catalytic activity/Vol] 22 U/L 10-42 [facility] Serum or plasma calcium tammy urement (mass/volume)Ordered By: Gilson Castro on 05-16-2022 Calcium [Mass/Vol] 9.2 mg/dL 8.2-10.2 [facility] Serum or plasma chloride judy surement (moles/volume)Ordered By: Gilson Castro on 05-16-2022 Chloride [Moles/Vol] 97 mmol/L 95-114 [facility] Serum or plasma glucose tammy urement (mass/volume)Ordered By: Gilson Castro on 05-16-2022 Glucose [Mass/Vol] 90 mg/dL 70-100 [facility] Comment on above: ADA recommended refe rence range Random Glucose Reference Range is dependent on time and content of last meal. Glucose of more than 200 mg/dL in a nonstressed, ambulatory subject supports the diagnosis of Diabetes Mellitus. Serum or plasma potassium me asurement (moles/volume)Ordered By: Gilson Castro on 05-16-2022 Potassium [Moles/Vol] 3.2 mmol/L 3.5-5.1 [facility] Serum or plasma sodium measu rement (moles/volume)Ordered By: Gilson Castro on 05-16-2022 Sodium [Moles/Vol] 135 mmol/L 136-146 [facility] Serum or plasma total biliru bin measurement (mass/volume)Ordered By: Gilson Castro on 05-16-2022 Bilirubin [Mass/Vol] 1.0 mg/dL 0.3-1.2 [facility] Serum or plasma total carbon dioxide measurement (moles/volume)Ordered By: Gilson Castro on 05-16-2022 CO2 [Moles/Vol] 24.6 mmol/L 22.0-30.0 [facility] Serum or plasma urea nitroge n measurement (mass/volume)Ordered By: Gilson Castro on 05-16-2022 Urea nitrogen [Mass/Vol] 23 mg/dL 9-23 [facility] Specific gravity Auto test s trip (U) [Rel density]Ordered By: Gilson Castro on 05-16-2022 Specific gravity (U) [Rel density] 1.023 1.001-1.03 0 [facility] Squamous epithelial cells de tection in urine sediment by light microscopyOrdered By: Gilson Castro on 05-16-2022 Epithelial cells.squamous LM Ql (Urine sed) 20-30 [HPF] 0-2 [facility] Urine bacteria detection by automated methodOrdered By: Gilson Castro on 05-16-2022 Bacteria Auto Ql (U) 1+ None Seen [facility] Urine clarity by refractomet ry automatedOrdered By: Gilson Castro on 05-16-2022 Clarity Refractometry automated (U) Turbid Clear [facility] Urine cocaine detectionOrder ed By: Gilson Castro on 05-16-2022 Cocaine Ql (U) Negative Negative [facility] Urine glucose measurement by automated test strip (mass/volume)Ordered By: Gilson Castro on 05-16-2022 Glucose Auto test strip (U) [Mass/Vol] Normal mg/dL Normal [facility] Urine hemoglobin detection b y automated test stripOrdered By: Gilson Castro on 05-16-2022 Hemoglobin Auto test strip Ql (U) Negative Negative [facility] Urine leukocyte esterase det ection by automated test stripOrdered By: Gilson Castro on 05-16-2022 Leukocyte esterase Auto test strip Ql (U) 2+ Negative [facility] [facility] U[facility]ogen Auto test strip (U) [Mass/Vol]Ordered By: Gilson Castro on 05-16-2022 Urobilinogen (U) [Mass/Vol] Normal mg/dL Normal [facility] pH Auto test strip (U)Ordere d By: Gilson Castro on 05-16-2022 pH (U) 8.0 [pH] 5.0-9.0 [facility] Albumin [Mass/volume] in Ser um or PlasmaOrdered By: Art Bianchi on 05-15-2022 Albumin [Mass/Vol] 4.7 g/dL 3.2-5.5 [facility] Basophils Auto (Bld) [#/Vol] Ordered By: Art Bianchi on 05-15-2022 Basophils (Bld) [#/Vol] 0.0 10*3/uL 0.0-0.1 [facility] Basophils/100 WBC Auto (Bld) Ordered By: Art Bianchi on 05-15-2022 Basophils/100 WBC (Bld) 0.2 % . [facility] Blood hemoglobin measurement (mass/volume)Ordered By: Art Bianchi on 05-15-2022 Hemoglobin (Bld) [Mass/Vol] 13.6 g/dL 12.0-16.0 [facility] Blood leukocytes automated c ount (number/volume)Ordered By: Art Bianchi on 05-15-2022 WBC (Bld) [#/Vol] 14.0 10*3/uL 4.5-13.5 [facility] Creatinine and Glomerular fi ltration rate.predicted panel (S/P/Bld)Ordered By: Art Bianchi on 05-15-2022 Creatinine [Mass/Vol] 0.76 mg/dL 0.44-1.03 [facility] Eosinophils Auto (Bld) [#/Vo l]Ordered By: Art Bianchi on 05-15-2022 Eosinophils (Bld) [#/Vol] 0.0 10*3/uL 0.0-0.7 [facility] Eosinophils/100 WBC Auto (Bl d)Ordered By: Art Bianchi on 05-15-2022 Eosinophils/100 WBC (Bld) 0.4 % . [facility] Erythrocyte distribution wid th Auto (RBC) [Ratio]Ordered By: Art Bianchi on 05-15-2022 Erythrocyte distribution width (RBC) [Ratio] 13.7 % 11.9-15.3 [facility] Estimated glomerular filtrat ion rate (GFR) non- AmericanOrdered By: Art Bianchi on 05-15-2022 GFR/1.73 sq M.predicted among non-blacks MDRD (S/P/Bld) [Vol rate/Area] > 60 mL/Min [facility] Globulin Calc (S) [Mass/Vol] Ordered By: Art Bianchi on 05-15-2022 Globulin (S) [Mass/Vol] 3.2 g/dL [facility] Hematocrit Auto (Bld) [Volum e fraction]Ordered By: Art Bianchi on 05-15-2022 Hematocrit (Bld) [Volume fraction] 41.0 % 36.0-46.0 [facility] Laboratory - Chemistry and C hemistry - challengeOrdered By: Art Bianchi on 05-15-2022 Lipase [Catalytic activity/Vol] 24.0 U/L 22-51 [facility] Laboratory - Hematology and Cell countsOrdered By: Art Bianchi on 05-15-2022 Nucleated RBC/100 WBC (Bld) [Ratio] 0.0 % 0-0.5 [facility] Lymphocytes Auto (Bld) [#/Vo l]Ordered By: Art Bianchi on 05-15-2022 Lymphocytes (Bld) [#/Vol] 2.6 10*3/uL 1.20-4.8 [facility] Lymphocytes/100 WBC Auto (Bl d)Ordered By: Art Bianchi on 05-15-2022 Lymphocytes/100 WBC (Bld) 18.4 % . [facility] MCH Auto (RBC) [Entitic mass ]Ordered By: Art Bianchi on 05-15-2022 MCH (RBC) [Entitic mass] 28.0 pg 25.0-35.0 [facility] MCHC Auto (RBC) [Mass/Vol]Or dered By: Art Bianchi on 05-15-2022 MCHC (RBC) [Mass/Vol] 33.3 g/dL 31.0-37.0 [facility] MCV Auto (RBC) [Entitic vol] Ordered By: Art Bianchi on 05-15-2022 MCV (RBC) [Entitic vol] 84.1 fL 78-102 [facility] Monocytes Auto (Bld) [#/Vol] Ordered By: Art Bianchi on 05-15-2022 Monocytes (Bld) [#/Vol] 1.2 10*3/uL 0.1-1.00 [facility] Monocytes/100 WBC Auto (Bld) Ordered By: Art Bianchi on 05-15-2022 Monocytes/100 WBC (Bld) 8.3 % . [facility] Neutrophils Auto (Bld) [#/Vo l]Ordered By: Art Bianchi on 05-15-2022 Neutrophils (Bld) [#/Vol] 10.2 10*3/uL 1.2-7.7 [facility] Neutrophils/100 WBC Auto (Bl d)Ordered By: Art Bianchi on 06-18-2022 Neutrophils/100 WBC (Bld) 72.7 % . [facility] No Panel InformationOrdered By: Art Bianchi on 05-15-2022 Estimated GFR () > 60 mL/Min [facility] Comment on above: GFR estimated refere nce range: According to KDOQI guidelines, <60 ml/min/1.73m2 is sufficient to diagnose a patient with chronic kidney disease. Pharmacy Creatinine Clearance (Chem 115.34 [facility] Platelet mean volume Auto (B ld) [Entitic vol]Ordered By: Art Bianchi on 05-15-2022 Platelet mean volume (Bld) [Entitic vol] 8.8 fL 6.3-10.7 [facility] Platelets Auto (Bld) [#/Vol] Ordered By: Art Bianchi on 05-15-2022 Platelets (Bld) [#/Vol] 315 10*3/uL 150-450 [facility] Protein [Mass/volume] in Ser um or PlasmaOrdered By: Art Bianchi on 05-15-2022 Protein [Mass/Vol] 7.9 g/dL 6.1-7.9 [facility] RBC Auto (Bld) [#/Vol]Ordere d By: Art Bianchi on 05-15-2022 RBC (Bld) [#/Vol] 4.88 10*6/uL 4.10-5.10 [facility] Serum or plasma alanine florez otransferase measurement without P-5'-P (enzymatic activiOrdered By: Art Bianchi on 05-15-2022 ALT No additional P-5'-P [Catalytic activity/Vol] 25 U/L 10-60 [facility] Serum or plasma albumin/glob ulin mass ratioOrdered By: Art Bianchi on 05-15-2022 Albumin/Globulin [Mass ratio] 1.5 {ratio} [facility] Serum or plasma alkaline justin sphatase measurement (enzymatic activity/volume)Ordered By: Art Bianchi on 05-15-2022 ALP [Catalytic activity/Vol] 66 U/L 32-92 [facility] Serum or plasma aspartate am inotransferase measurement (enzymatic activity/volume)Ordered By: Art Bianchi on 05-15-2022 AST [Catalytic activity/Vol] 33 U/L 10-42 [facility] Serum or plasma calcium tammy urement (mass/volume)Ordered By: Art Bianchi on 05-15-2022 Calcium [Mass/Vol] 10.1 mg/dL 8.2-10.2 [facility] Serum or plasma chloride judy surement (moles/volume)Ordered By: rAt Bianchi on 05-15-2022 Chloride [Moles/Vol] 94 mmol/L 95-114 [facility] Serum or plasma glucose tammy urement (mass/volume)Ordered By: Art Bianchi on 05-15-2022 Glucose [Mass/Vol] 102 mg/dL 70-100 [facility] Comment on above: ADA recommended refe rence range Random Glucose Reference Range is dependent on time and content of last meal. Glucose of more than 200 mg/dL in a nonstressed, ambulatory subject supports the diagnosis of Diabetes Mellitus. Serum or plasma potassium me asurement (moles/volume)Ordered By: Art Bianchi on 05-15-2022 Potassium [Moles/Vol] 3.1 mmol/L 3.5-5.1 [facility] Serum or plasma sodium measu rement (moles/volume)Ordered By: Art Bianchi on 05-15-2022 Sodium [Moles/Vol] 135 mmol/L 136-146 [facility] Serum or plasma total biliru bin measurement (mass/volume)Ordered By: Art Bianchi on 05-15-2022 Bilirubin [Mass/Vol] 1.2 mg/dL 0.3-1.2 [facility] Serum or plasma total carbon dioxide measurement (moles/volume)Ordered By: Art Bianchi on 05-15-2022 CO2 [Moles/Vol] 22.2 mmol/L 22.0-30.0 [facility] Serum or plasma urea nitroge n measurement (mass/volume)Ordered By: Art Bianchi on 05-15-2022 Urea nitrogen [Mass/Vol] 23 mg/dL 9-23 [facility] Albumin [Mass/volume] in Ser um or PlasmaOrdered By: Art Bianchi on 05-13-2022 Albumin [Mass/Vol] 4.3 g/dL 3.2-5.5 [facility] Automated erythrocytes count in urine sediment (number/area)Ordered By: Art Bianchi on 05-13-2022 RBC Auto (Urine sed) [#/Area] 1-2 [HPF] 0-4 [facility] Automated leukocytes count i n urine sediment (number/area)Ordered By: Art Bianchi on 05-13-2022 WBC Auto (Urine sed) [#/Area] 1-2 [HPF] 0-4 [facility] Basophils Auto (Bld) [#/Vol] Ordered By: Art Bianchi on 05-13-2022 Basophils (Bld) [#/Vol] 0.1 10*3/uL 0.0-0.1 [facility] Basophils/100 WBC Auto (Bld) Ordered By: Art Bianchi on 05-13-2022 Basophils/100 WBC (Bld) 1.0 % . [facility] Bilirubin Test strip Ql (U)O rdered By: Art Bianchi on 05-13-2022 Bilirubin Ql (U) Negative Negative [facility] Blood hemoglobin measurement (mass/volume)Ordered By: Art Bianchi on 05-13-2022 Hemoglobin (Bld) [Mass/Vol] 13.7 g/dL 12.0-16.0 [facility] Blood leukocytes automated c ount (number/volume)Ordered By: Art Bianchi on 05-13-2022 WBC (Bld) [#/Vol] 10.4 10*3/uL 4.5-13.5 [facility] Color Auto (U)Ordered By: Adrian Bianchi on 05-13-2022 Color (U) Yellow Yellow [facility] Creatinine and Glomerular fi ltration rate.predicted panel (S/P/Bld)Ordered By: Art Bianchi on 05-13-2022 Creatinine [Mass/Vol] 0.76 mg/dL 0.44-1.03 [facility] Eosinophils Auto (Bld) [#/Vo l]Ordered By: Art Bianchi on 05-13-2022 Eosinophils (Bld) [#/Vol] 0.5 10*3/uL 0.0-0.7 [facility] Eosinophils/100 WBC Auto (Bl d)Ordered By: Art Bianchi on 05-13-2022 Eosinophils/100 WBC (Bld) 4.6 % . [facility] Erythrocyte distribution wid th Auto (RBC) [Ratio]Ordered By: Art Bianchi on 05-13-2022 Erythrocyte distribution width (RBC) [Ratio] 13.6 % 11.9-15.3 [facility] Estimated glomerular filtrat ion rate (GFR) non- AmericanOrdered By: Art Bianchi on 05-13-2022 GFR/1.73 sq M.predicted among non-blacks MDRD (S/P/Bld) [Vol rate/Area] > 60 mL/Min [facility] Globulin Calc (S) [Mass/Vol] Ordered By: Art Bianchi on 05-13-2022 Globulin (S) [Mass/Vol] 2.7 g/dL [facility] HCG ( test) IA.rapi d Ql (U)Ordered By: Art Bianchi on 05-13-2022 HCG ( test) Ql (U) Negative [facility] Hematocrit Auto (Bld) [Volum e fraction]Ordered By: Art Bianchi on 05-13-2022 Hematocrit (Bld) [Volume fraction] 40.5 % 36.0-46.0 [facility] Ketones Auto test strip (U) [Mass/Vol]Ordered By: Art Bianchi on 05-13-2022 Ketones (U) [Mass/Vol] Trace Negative [facility] Laboratory - Hematology and Cell countsOrdered By: Art Bianchi on 05-13-2022 Nucleated RBC/100 WBC (Bld) [Ratio] 0.0 % 0-0.5 [facility] Laboratory - UrinalysisOrder ed By: Art Bianchi on 05-13-2022 Hyaline casts LM Ql (Urine sed) 0-8 [LPF] 0-8 [facility] Lymphocytes Auto (Bld) [#/Vo l]Ordered By: Art Bianchi on 05-13-2022 Lymphocytes (Bld) [#/Vol] 1.4 10*3/uL 1.20-4.8 [facility] Lymphocytes/100 WBC Auto (Bl d)Ordered By: Art Bianchi on 05-13-2022 Lymphocytes/100 WBC (Bld) 13.1 % . [facility] MCH Auto (RBC) [Entitic mass ]Ordered By: Art Bianchi on 05-13-2022 MCH (RBC) [Entitic mass] 28.6 pg 25.0-35.0 [facility] MCHC Auto (RBC) [Mass/Vol]Or dered By: Art Bianchi on 05-13-2022 MCHC (RBC) [Mass/Vol] 33.7 g/dL 31.0-37.0 [facility] MCV Auto (RBC) [Entitic vol] Ordered By: Art Bianchi on 05-13-2022 MCV (RBC) [Entitic vol] 84.7 fL 78-102 [facility] Monocytes Auto (Bld) [#/Vol] Ordered By: Art Bianchi on 05-13-2022 Monocytes (Bld) [#/Vol] 0.4 10*3/uL 0.1-1.00 [facility] Monocytes/100 WBC Auto (Bld) Ordered By: Art Biancih on 05-13-2022 Monocytes/100 WBC (Bld) 4.2 % . [facility] Neutrophils Auto (Bld) [#/Vo l]Ordered By: Art Bianchi on 05-13-2022 Neutrophils (Bld) [#/Vol] 8.0 10*3/uL 1.2-7.7 [facility] Neutrophils/100 WBC Auto (Bl d)Ordered By: Art Bianchi on 05-13-2022 Neutrophils/100 WBC (Bld) 77.1 % . [facility] Nitrite Test strip Ql (U)Ord ered By: Art Bianchi on 05-13-2022 Nitrite Ql (U) Negative Negative [facility] No Panel InformationOrdered By: Art Bianchi on 05-13-2022 Estimated GFR () > 60 mL/Min [facility] Comment on above: GFR estimated refere nce range: According to KDOQI guidelines, <60 ml/min/1.73m2 is sufficient to diagnose a patient with chronic kidney disease. Pharmacy Creatinine Clearance (Chem 112.80 [facility] Platelet mean volume Auto (B ld) [Entitic vol]Ordered By: Art Bianchi on 05-13-2022 Platelet mean volume (Bld) [Entitic vol] 8.6 fL 6.3-10.7 [facility] Platelets Auto (Bld) [#/Vol] Ordered By: Art Bianchi on 05-13-2022 Platelets (Bld) [#/Vol] 264 10*3/uL 150-450 [facility] Protein Auto test strip (U) [Mass/Vol]Ordered By: Art Bianchi on 05-13-2022 Protein (U) [Mass/Vol] 30 mg/dL Negative [facility] Protein [Mass/volume] in Ser um or PlasmaOrdered By: Art Bianchi on 05-13-2022 Protein [Mass/Vol] 7.0 g/dL 6.1-7.9 [facility] RBC Auto (Bld) [#/Vol]Ordere d By: Art Bianchi on 05-13-2022 RBC (Bld) [#/Vol] 4.78 10*6/uL 4.10-5.10 [facility] Serum or plasma alanine florez otransferase measurement without P-5'-P (enzymatic activiOrdered By: Art Bianchi on 05-13-2022 ALT No additional P-5'-P [Catalytic activity/Vol] 19 U/L 10-60 [facility] Serum or plasma albumin/glob ulin mass ratioOrdered By: Art Bianchi on 05-13-2022 Albumin/Globulin [Mass ratio] 1.6 {ratio} [facility] Serum or plasma alkaline justin sphatase measurement (enzymatic activity/volume)Ordered By: Art Bianchi on 05-13-2022 ALP [Catalytic activity/Vol] 69 U/L 32-92 [facility] Serum or plasma aspartate am inotransferase measurement (enzymatic activity/volume)Ordered By: Art Bianchi on 05-13-2022 AST [Catalytic activity/Vol] 19 U/L 10-42 [facility] Serum or plasma calcium tammy urement (mass/volume)Ordered By: Art Bianchi on 05-13-2022 Calcium [Mass/Vol] 9.9 mg/dL 8.2-10.2 [facility] Serum or plasma chloride judy surement (moles/volume)Ordered By: Art Bianchi on 05-13-2022 Chloride [Moles/Vol] 107 mmol/L 95-114 [facility] Serum or plasma glucose tammy urement (mass/volume)Ordered By: Art Bianchi on 05-13-2022 Glucose [Mass/Vol] 140 mg/dL 70-100 [facility] Comment on above: ADA recommended refe rence range Random Glucose Reference Range is dependent on time and content of last meal. Glucose of more than 200 mg/dL in a nonstressed, ambulatory subject supports the diagnosis of Diabetes Mellitus. Serum or plasma potassium me asurement (moles/volume)Ordered By: Art Bianchi on 05-13-2022 Potassium [Moles/Vol] 3.7 mmol/L 3.5-5.1 [facility] Serum or plasma sodium measu rement (moles/volume)Ordered By: Art Bianchi on 05-13-2022 Sodium [Moles/Vol] 138 mmol/L 136-146 [facility] Serum or plasma total biliru bin measurement (mass/volume)Ordered By: Art Bianchi on 05-13-2022 Bilirubin [Mass/Vol] 0.5 mg/dL 0.3-1.2 [facility] Serum or plasma total carbon dioxide measurement (moles/volume)Ordered By: Art Bianchi on 05-13-2022 CO2 [Moles/Vol] 19.0 mmol/L 22.0-30.0 [facility] Serum or plasma urea nitroge n measurement (mass/volume)Ordered By: Art Bianchi on 05-13-2022 Urea nitrogen [Mass/Vol] 11 mg/dL 9-23 [facility] Specific gravity Auto test s trip (U) [Rel density]Ordered By: Art Bianchi on 05-13-2022 Specific gravity (U) [Rel density] 1.018 1.001-1.03 0 [facility] Squamous epithelial cells de tection in urine sediment by light microscopyOrdered By: Art Bianchi on 05-13-2022 Epithelial cells.squamous LM Ql (Urine sed) 20-30 [HPF] 0-2 [facility] Urine bacteria detection by automated methodOrdered By: Art Bianchi on 05-13-2022 Bacteria Auto Ql (U) 2+ None Seen [facility] Urine clarity by refractomet ry automatedOrdered By: Art Bianchi on 05-13-2022 Clarity Refractometry automated (U) Cloudy Clear [facility] Urine glucose measurement by automated test strip (mass/volume)Ordered By: Art Bianchi on 05-13-2022 Glucose Auto test strip (U) [Mass/Vol] Normal mg/dL Normal [facility] Urine hemoglobin detection b y automated test stripOrdered By: Art Bianchi on 05-13-2022 Hemoglobin Auto test strip Ql (U) Negative Negative [facility] Urine leukocyte esterase det ection by automated test stripOrdered By: Art Bianchi on 05-13-2022 Leukocyte esterase Auto test strip Ql (U) Negative Negative [facility] Urobilinogen Auto test strip (U) [Mass/Vol]Ordered By: Art Bianchi on 05-13-2022 Urobilinogen (U) [Mass/Vol] Normal mg/dL Normal [facility] pH Auto test strip (U)Ordere d By: Art Bianchi on 05-13-2022 pH (U) [pH] 5.0-9.0 [facility] CNPNon 10-10-2021 CNPN Telephone (OTOLMN) PILI PARIKH ([id number]) 3 F Date Time Provider Department 10/10/21 ROLANDO WOOTEN OTIVANNA During your visit today, we recorded the following information about you: Rolando Wooten MD 10/10/2021 12:44 PM Signed Spoke with patient. Monospot positive. Waiting on CBC with diff - wbc 10. She feels ok, just sore throat after incision for SMELLER yesterday. Ordered further labs as somewhat atypical [...] [B27.80] Order(s):HEPATIC FUNCTION PNL [SQHFP] Order #: [id number] FUTURE HIV 1 2 COMBO(AG/AB),WITH REFLEX TO DIFFERENTIATION [SQHIV12] Order #: [id number] FUTURE CMV IGG/IGM TITER [7603419] Order #: [id number] FUTURE LISSA-HENSON VCA IGM [SQEBVM] Order #: [id number] FUTURE EBV EA AB IGG [[id number]] Order #: [id number] FUTURE LISSA-HENSON VCA IGG [SQEBVG] Order #: [id number] FUTURE CMV IGG/IGM TITER [[id number]] Order #: [id number] EBV EA AB IGG [[id number]] Order #: [id number] Prescriptions as of 10/27/2021 - HYDROcodone-acetaminophen (HYCET) [...] Status:Closed by ROLANDO WOOTEN on 10/10/21 Normal [facility] AFB Cult and Stainon 021 AFB Cult and Stain Sp. Request/Comment: - Specimen received in sterile container. Smear Result - No acid fast bacilli seen by fluorochrome stain Culture Result - No Acid Fast Bacilli isolated after 46 days Normal [facility] Comment on above: Performed By: #### A FC #### [facility] [address], [place] [id number] Anaerobe Cultureon 1 Anaerobe Culture Sp. Request/Comment: - Specimen received in sterile container. Culture Result - Few Mixed anaerobic jori --> ABNORMAL ALERT No Bacteroides fragilis group isolated. No Clostridium perfringens isolated Critically abnormal [facility] Comment on above: Performed By: #### A NACUL #### [facility] [address], [place] [id number] Basic Metabolic Panlon 10-09 Anion gap [Moles/Vol] 14 mmol/L Normal 9-18 [facility] Comment on above: Result Comment: (NOT E) Reference ranges for this patient's age group have not been established. These reference ranges reflect verified or established ranges for the adult population. Interpret these ranges with caution using the clinical context and additional reference resources. Performed By: #### C BCDIF, BMP, MONOLX #### [facility] [address], [place] [id number] Calcium [Mass/Vol] 9.4 mg/dL Normal 8.4-10.2 [facility] Comment on above: Performed By: #### C BCDIF, BMP, MONOLX #### [facility] [address], [place] [id number] Chloride [Moles/Vol] 99 mmol/L Normal 97-105 [facility] Comment on above: Result Comment: (NOT E) Reference ranges for this patient's age group have not been established. These reference ranges reflect verified or established ranges for the adult population. Interpret these ranges with caution using the clinical context and additional reference resources. Performed By: #### C BCDIFCHRISTEL, MONOLX #### [facility] [employer] [address], [place] [address] CO2 [Moles/Vol] 23 mmol/L Normal 22-30 [facility] Comment on above: Result Comment: (NOT E) Reference ranges for this patient's age group have not been established. These reference ranges reflect verified or established ranges for the adult population. Interpret these ranges with caution using the clinical context and additional reference resources. Performed By: #### C BCDIFCHRISTEL, MONOLX #### [facility] [employer] [address], [place] [address] Creatinine [Mass/Vol] 0.64 mg/dL Normal 0.58-0.96 [facility] Comment on above: Result Comment: Refe rence ranges for this patient's age group have not been established. These reference ranges reflect verified or established ranges for the adult population. Interpret these ranges with caution using the clinical context and additional reference resources. Performed By: #### C BCDIFCHRISTEL, MONOLX #### [facility] [employer] [address], [place] [address] eGFR-Ped. Factor 0.[address] [facility] Comment on above: Result Comment: eGFR (Estimated [...] for clinical interpretation. Performed By: #### C BCDIF BMP, MONOLX #### [facility] [employer] [address], [place] [address] Glucose [Mass/Vol] 89 mg/dL Normal 74-99 [facility] Comment on above: Result Comment: Refe rence ranges for this patient's age group have not been established. These reference ranges reflect verified or established ranges for the adult population. Interpret these ranges with caution using the clinical context and additional reference resources. The [place] [employer] (ADA) provides guidance for cutoff [...] Standards of Medical Care in Diabetes 2016, [place] [employer]. Diabetes Care. 2016.39(Suppl 1). Performed By: #### C BCDIF, BMP, MONOLX #### [facility] [employer] [address] [place], [place] [address] Potassium [Moles/Vol] 4.4 mmol/L Normal 3.7-5.1 [facility] Comment on above: Result Comment: (NOT E) Reference ranges for this patient's age group have not been established. These reference ranges reflect verified or established ranges for the adult population. Interpret these ranges with caution using the clinical context and additional reference resources. Performed By: #### C BCDIF, BMP, MONOLX #### [facility] [employer] [address] [place], [place] [address] Sodium [Moles/Vol] 136 mmol/L Normal 136-144 [facility] Comment on above: Result Comment: (NOT E) Reference ranges for this patient's age group have not been established. These reference ranges reflect verified or established ranges for the adult population. Interpret these ranges with caution using the clinical context and additional reference resources. Performed By: #### C BCDIF, BMP, MONOLX #### [facility] [employer] [address] [place], [place] [address] Urea nitrogen [Mass/Vol] 8 mg/dL Normal 5-18 [facility] Comment on above: Performed By: #### C BCDIF, BMP, MONOLX #### [place] [id number] [place] [address] CBC and Differentialon 10-09 Abs Baso 0.11 k/uL High <0.11 [facility] Comment on above: Performed By: #### C BCDIF, BMP, MONOLX #### [place] [address] Abs Lym 4.27 K/uL High 1.00-4.00 [facility] Comment on above: Performed By: #### C BCDIF, BMP, MONOLX #### [place] [address] Abs Solano 1.10 k/uL High <0.87 [facility] Comment on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 of Present Illness, Primary Care Provider, Allergies,Medications Prior to Admission, Review of Systems, Objective, Assessment/Plan,Signatures/ Attestation/CertificationFr Tashia sy) (Signed 24-Jun-2018 10:21)Authored: Review of Systems, Signatures/Attestation/Cert ificationCo-Signer: History of Present Illness, Primary Care Provider, Allergies,Medications Prior to Admission, Review of Systems, Objective, Assessment/Plan,Signatures/ Attestation/Certification Last Updated: 24-Jun-2018 10:21 by Tashia Jimenez) References:1. Data Referenced From Patient Profile - Pediatric v2 06/23/2018 02:37 AM Normal [facility] Letter - Admission Notificat ion to PCPon 06-23-2018 Letter - Admission Notification to PCP Letter of Admission:Today's Date: 23-Jun-2018. Dear Melida Daniel MD. We would like to inform you that your patient was admitted to [facility] on the following date: 23-Jun-2018. The [...] Radha Unger MD. Attending Physician Phone Number: [phone]. Electronic Signatures:Jae Mensah (DIV SECT) (Signed 23-Jun-2018 08:29)Authored: Admission Letter Last Updated: 23-Jun-2018 08:29 by Jae Mensah (DIV SECT) Normal [facility] Measurementson 06-23-2018 Measurements Weight: ? Med Calc Weight (kg)90.5 kilogram(s) Electronic Signatures: Ayaan Burnham (Resident)) (Signed 23-Jun-2018 01:57) Authored: Weight Last Updated: 23-Jun-2018 01:57 by Ayaan Burnham (Resident)) Normal [facility] Patient Profile - Pediatric v2on 06-23-2018 Protein mass conc Profile:Initial Info :How to be AddressedTrinityParent NameRobert Jl (father)Spoken Language PreferredEnglishLegal CustodianParents (Carlos & )Are you currently using the Personal Electronic Health Record or [employer]CAREnoAre you interested in learning more about MYCARE for the management of yourhealthnot at this [...] Allergies:? No Known Allergies: Active Electronic Signatures:Lubna Lockett) (Signed 23-Jun-2018 02:40)Authored: Profile, Additional Information Last Updated: 23-Jun-2018 02:40 by Lubna Lockett) [facility] Visitor Enrico 06-23-2018 Visitor List Visitor List: Carlos Parikh (father). Cy Parikh (mother). Electronic Signatures: Lubna Lockett) (Signed 23-Jun-2018 04:37) Authored: Visitor List Last Updated: 23-Jun-2018 04:37 by Lubna Lockett) Normal [facility] Office Visit (Pediatric Neur ology)on 06-05-2018 Office [...] her tear ducts. She had seen an weapons designer who confirmed this. 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 She will be going to [email or web address] school in the fall. She can still [...] pain; KAYLA = N; Verified Transmission to [facility]; Last Updated By: BioArray; 09/28/2017 12:12:51 PM Afrin 12 Hour 0.05 % Nasal Solution; USE 1 SPRAY IN EACH NOSTRIL TWICE DAILY;Therapy: 22Dec2017 to (Evaluate:25Dec2017) Requested for: 22Dec2017; LastRx:22Dec2017 Ordered Rx By: Dali Mcintsoh; Dispense: 3 Days ; #: Sufficient X 15 ML Bottle; Refill: 0;For: Abdominal pain, Asthma, mild persistent, Epistaxis, Flu-like symptoms, Hematemesis, Vomiting; KAYLA = N; Rx auto-faxed to [facility]; Last Updated By: BioArray; 12/22/2017 5:43:51 PM AeroChamber Z-Stat Plus/Large Miscellaneous; Please dispense large spacer withmouthpiece. Okay to substitute Optichamber with mouthpiece or Ashley Vortex withmouthpiece;Therapy: 23Sep2014 to (Last Rx:24Mar2015) Requested for: 24Mar2015 Ordered Rx By: Amira Roach; Dispense: 0 Days ; #:1 Miscellaneous; Refill: 1;For: Asthma; KAYLA = N; Verified Transmission to [facility]; Last Updated By: BioArray; 03/24/2015 10:46:52 AM Albuterol Sulfate (2.5 MG/3ML) 0.083% Inhalation Nebulization Solution; Inhale one vialevery 4-6 hours as needed for cough, wheezing and shortness of breath;Therapy: 23Sep2014 to (Evaluate:20Oct2015) Requested for: 24Mar2015; LastRx:24Mar2015 Ordered Rx By: Amira Roach; Dispense: 30 Days ; #:1 X 3 ML Plas Cont (60 Plas Conts); Refill: 6;For: Asthma; KAYLA = N; Verified Transmission to [facility]; Last Updated By: BioArray; 03/24/2015 10:46:51 AM PredniSONE 20 MG Oral Tablet; Take 3 tablets once daily for 5-7 days. To be used in thesetting of a severe asthma flare-up. Please call the office prior to starting;Therapy: 23Sep2014 to (Last Rx:24Mar2015) Requested for: 12Qjb0992 Ordered Rx By: Amira Roach; Dispense: 0 Days ; #:21 Tablet; Refill: 1;For: Asthma; KAYLA = N; Sent To: [facility]; Last Updated By: Dali Mcintosh; 04/14/2018 10:03:48 AM ProAir HFA 108 (90 Base) MCG/ACT Inhalation Aerosol Solution; Inhale 2-4 puffs every4-6 hours as needed for cough, wheezing or shortness of breath and prior to exercise;Therapy: 23Sep2014 to (Last Rx:24Mar2015) Requested for: 24Mar2015 Ordered Rx By: Amira Roach; Dispense: 0 Days ; #:2 X 8.5 GM Inhaler; Refill: 6;For: Asthma; KAYLA = N; Verified Transmission to [place] [address]; Last Updated By: Juan Antonio Burgos; 03/24/2015 10:46:52 AM Qvar 80 MCG/ACT Inhalation Aerosol Solution; INHALE TWO PUFFS BY MOUTH TWICEA DAY WITH A SPACER;Therapy: 23Sep2014 to (Last Rx:45Tpf2196) Requested for: 09Lru6165 Ordered Rx By: Amira Roach; Dispense: 0 Days ; #:8.7 EA; Refill: 5;For: Asthma, mild persistent; KAYLA = N; Verified Transmission to [place] [address] Lansoprazole 30 MG Oral Capsule Delayed Release; TAKE 1 CAPSULE EVERYMORNING DAILY;Therapy: 79Bei4599 to (Evaluate:17Btm1460) Requested for: 97Yqh1230; LastRx:18Apr2018 Ordered Rx By: Dali Mcintosh; Dispense: 30 Days ; #:30 Capsule Delayed Release; Refill: 3;For: Gastro-esophageal reflux; KAYLA = N; Verified Transmission to [place] [address] Unspecified Medication; Vitamin B2-400 Oral Capsule1 capsule orally once a day;Therapy: (Recorded:00Xys2110) to Recorded Dispense: 0 Days ; #: Sufficient; Refill: 0;For: Health Maintenance; KAYLA = N; Record; Last Updated By: Mehran Martinez; 08/26/2017 8:43:21 AM Gabapentin 300 MG Oral Capsule; TAKE 1 CAPSULE 3 TIMES DAILY;Therapy: 28Sep2017 to (Evaluate:37Zjt4809) Requested for: 18Feb2018; LastRx:18Feb2018 Ordered Rx By: Mere Simpson; Dispense: 30 Days ; #:90 Capsule; Refill: 5;For: Migraine; KAYLA = N; Verified Transmission to [place] [address]; Last Updated By: Juan Antonio Burgos; 02/18/2018 9:49:39 AM Magnesium Oxide 400 MG Oral Tablet; 1 TABLET ORALLY ONCE A DAY;Therapy: (Recorded:40Gri4261) to Recorded Dispense: 0 Days ; #: Sufficient Tablet; Refill: 0;For: Migraine; KAYLA = N; Record; Last Updated By: Mehran Martinez; 08/26/2017 8:43:21 AM Amitriptyline HCl - 25 MG Oral Tablet; TAKE 1 TABLET AT BEDTIME;Therapy: 66Ttf3868 to (Evaluate:95Woi7648) Requested for: 18Apr2018; LastRx:18Apr2018 Ordered Rx By: Dali Mcitnosh; Dispense: 30 Days ; #:30 Tablet; Refill: 6;For: Migraine, Vomiting; KAYLA = N; Verified Transmission to [place] [address] Vitamin D 1000 UNIT Oral Tablet; TAKE 1 TABLET DAILY;Therapy: 14Apr2018 to (Evaluate:45Gzm7710) Requested for: 18Apr2018; LastRx:18Apr2018 Ordered Rx By: Dali Mcintosh; Dispense: 30 Days ; #:30 Tablet; Refill: 3;For: Vitamin D deficiency; KAYLA = N; Verified Transmission to [place] [address] Cyproheptadine HCl - 4 MG Oral Tablet; TAKE 1 TABLET EVERY 8 HOURS DAILY Requested for: 02Sep2017; Last Rx:02Sep2017 Ordered Rx By: Jessica Coello; Dispense: 30 Days ; #:90 Tablet; Refill: 3;For: Vomiting; KAYLA = N; Rx auto-faxed to [place] [address]; Last Updated By: Juan Antonio Burgos; 09/02/2017 3:51:52 PM Ondansetron HCl - 8 MG Oral Tablet; TAKE 1 TABLET 3 times daily PRN vomiting;Therapy: 16Dec2017 to (Evaluate:98Hlg4192) Requested for: 18Apr2018; LastRx:18Apr2018 Ordered Rx By: Dali Mcintosh; Dispense: 30 Days ; #:90 Tablet; Refill: 3;For: Vomiting; KAYLA = N; Verified Transmission to [place] [address] Phenergan 25 MG SUPP; INSERT 1 SUPPOSITORY RECTALLY EVERY 12 HOURS ASNEEDED FOR NAUSEA AND VOMITING;Therapy: 03Nov2015 to (Last Rx:16Dec2017) Requested for: 16Dec2017 Ordered Rx By: Dali Mcintosh; Dispense: 0 Days ; #:12 Suppository; Refill: 1;For: Vomiting; KAYLA = N; [facility]; Last Updated By: Loretta Applico; 12/16/2017 1:32:36 PM Promethazine HCl - 25 MG Oral Tablet; 1 tablet orally every 12 hours as needed fornausea/vomiting Requested for: 16Dec2017; Last Rx:16Dec2017 Ordered Rx By: Dali Mcintosh; Dispense: 0 Days ; #:60 Tablet; Refill: 0;For: Vomiting; KAYLA = N; Rx auto-faxed to [facility]; Last Updated By: [employer] Applico; 12/16/2017 1:32:35 PM Atenolol 25 MG Oral [...] 04/14/2018 10:03:53 AM Vitals Vital Signs Recorded: 57Gqx9907 10:97JIRiucbjpz943Qzsrorujj 39Ivwqji0 ft 2.40 etCcxkif342 lb 14.53 ozBMI Kknxbathgj59.18BSA Calculated1.94BMI Qlfnhpqdei19 %2-20 Stature Yedxbeyfbw97 %2-20 Weight Zmwktsgmmu00 % Physical ExamToday's exam finds a cooperative [...] Treat Status:Hold For - Scheduling Requested for: 63Ciy2572 Ordered;For: Snoring; Ordered By: Mere Simpson Performed: Due: 93Oxv8280 Patient Discussion/SummaryTrinity has had an improvement in [...] or Ashley Vortex withmouthpiece;Therapy: 23Sep2014 to (Last Rx:91Mkk8491) Requested for: 24Mar2015 OrderedAfrin 12 Hour 0.05 % Nasal Solution; USE 1 SPRAY IN EACH NOSTRIL TWICE DAILY;Therapy: 22Dec2017 to (Evaluate:25Dec2017) Requested for: 22Dec2017; LastRx:22Dec2017 OrderedAlbuterol Sulfate (2.5 MG/3ML) 0.083% Inhalation Nebulization Solution; Inhale one vialevery 4-6 hours as needed for cough, wheezing and shortness of breath;Therapy: 23Sep2014 to (Evaluate:20Oct2015) Requested for: 93Wod2261; LastRx:24Mar2015 OrderedAmitriptyline HCl - 25 MG Oral Tablet; TAKE 1 TABLET AT BEDTIME;Therapy: 61Fuz2069 to (Evaluate:30Tqe9028) Requested for: 37Shw0978; LastRx:70Nuj9853 OrderedAtenolol 25 MG Oral Tablet; TAKE 1 TABLET DAILY;Therapy: (Recorded:20Oct2015) to RecordedCyproheptadine HCl - 4 MG Oral Tablet; TAKE 1 TABLET EVERY 8 HOURS DAILY Requested for: 02Sep2017; Last Rx:64Biu4430 OrderedFludrocortisone Acetate 0.1 MG Oral Tablet; take one tablet twice a day;Therapy: (Recorded:73Qvj8532) to RecordedGabapentin 300 MG Oral Capsule; TAKE 1 CAPSULE 3 TIMES DAILY;Therapy: 28Sep2017 to (Evaluate:58Qdf5142) Requested for: 18Feb2018; LastRx:18Feb2018 OrderedHyoscyamine Sulfate 0.125 MG Oral Tablet Disintegrating; 2 tablets orally every 8 hours Requested for: 28Sep2017; Last Rx:28Sep2017 OrderedLansoprazole 30 MG Oral Capsule Delayed Release; TAKE 1 CAPSULE EVERYMORNING DAILY;Therapy: 23Ypc1530 to (Evaluate:74Gvi8662) Requested for: 96Uxb1784; LastRx:18Apr2018 OrderedMagnesium Oxide 400 MG Oral Tablet; 1 TABLET ORALLY ONCE A DAY;Therapy: (Recorded:65Nwz9858) to RecordedOndansetron HCl - 8 MG Oral Tablet; TAKE 1 TABLET 3 times daily PRN vomiting;Therapy: 16Dec2017 to (Evaluate:23Xkm5744) Requested for: 18Apr2018; LastRx:18Apr2018 OrderedPhenergan 25 MG SUPP; INSERT 1 SUPPOSITORY RECTALLY EVERY 12 HOURS ASNEEDED FOR NAUSEA AND VOMITING;Therapy: 41Sqj6184 to (Last Rx:16Dec2017) Requested for: 16Dec2017 OrderedPredniSONE 20 MG Oral Tablet; Take 3 tablets once daily for 5-7 days. To be used in thesetting of a severe asthma flare-up. Please call the office prior to starting;Therapy: 23Sep2014 to (Last Rx:44Rew0713) Requested for: 14Apr2018 OrderedProAir HFA 108 (90 Base) MCG/ACT Inhalation Aerosol Solution; Inhale 2-4 puffs every4-6 hours as needed for cough, wheezing or shortness of breath and prior to exercise;Therapy: 23Sep2014 to (Last Rx:31Yio6326) Requested for: 24Mar2015 OrderedPromethazine HCl - 25 MG Oral Tablet; 1 tablet orally every 12 hours as needed fornausea/vomiting Requested for: 16Dec2017; Last Rx:16Dec2017 OrderedQvar 80 MCG/ACT Inhalation Aerosol Solution; INHALE TWO PUFFS BY MOUTH TWICEA DAY WITH A SPACER;Therapy: 23Sep2014 to (Last Rx:16Jkm6409) Requested for: 27Apr2016 OrderedTri-Sprintec 0.18/0.215/0.25 MG-35 MCG Oral Tablet;Therapy: 23Mar2018 to RecordedUnspecified Medication; Vitamin B2-400 Oral Capsule1 capsule orally once a day;Therapy: (Recorded:96Vzw3156) to RecordedVitamin D 1000 UNIT Oral Tablet; TAKE 1 TABLET DAILY;Therapy: 14Apr2018 to (Evaluate:02Ioq1271) Requested for: 18Apr2018; LastRx:18Apr2018 Ordered Signatures Electronically signed by : Mere Simpson APRN-[facility]; Jun 05 2018 10:46AM EST (Author) Normal [facility] Discharge Summaryon 08-24-20 17 Discharge Summary Send Summary:Dischar ge Summary Providers:Provider Role Provider Name? Referring Dali Mcintosh? Attending Adeola Colon? Primary Zac Daniel Recipients: Adeola Colon MD Baez-Socorro, Virginia M, MD Bumagina, Natalie, MD - [phone] [[phone]]Dali Mcintosh MD - [id number] [Preferred]Discharge:Summar y:Admission Date: .09-Aug-2017 21:44:00Discharge Date: 95-Rdn-8991Vrkmuvbpp Physician at Discharge: Adeola Colon NAdmission Reason: vomiting, hematemesisFinal Discharge Diagnoses: Functional abdominal painProcedures: null Aug 11, 2017Condition at Discharge: SatisfactoryDisposition at Discharge: .HomeVital Signs: T P R BP YfP2Qkjnh 36.6 70 18 126/84 98%Date/Time 08/24 8:58 [...] months, but worse recently. She was admitted [facility] last month for the vomiting. She also [...] Saturday September 02, 2017 at3:30 pm. Location: [place] [address] Djebjc-Up Appointment 02: Physician/Dept/Service: Neurology: Caty Simpson Call to Schedule in: 1st available Scheduled Date/Time: 31-Aug-2017 14:00 Location: [address] [place] [address] Ezjptw-Up Appointment 03: Physician/Dept/Service: ENT (ear, nose, and [...] in the above attestation) on:24-Aug-2017.: Electronic Signatures:Adeola Colon () (Signed 24-Aug-2017 23:59) Authored: Summary Content, Ongoing Care, Attestation Co-Signer: Send Summary, Summary Content, Ongoing Care, AttestationCarl Richards (Fellow)) (Signed 24-Aug-2017 20:58) Authored: Send Summary, Summary Content, Ongoing Care, AttestationLast Updated: 24-Aug-2017 23:59 by Adeola Colon) Normal [facility] PD ABDOMEN, SINGLE VIEWon PD ABDOMEN, SINGLE VIEW Name: PILI PARIKH STUDY:PD ABDOMEN, SINGLE VIEW; 08/21/2017 12:35 pm INDICATION:Signs/Symptoms: NG placement. COMPARISON:None. ORDERING CLINICIAN:NILAY BOATENG FINDINGS:Tip of NG overlies the gastric body. There is a nonobstructive bowel gas pattern. Visualized soft tissues and osseous structures are unremarkable. The lung bases are clear. IMPRESSION:Tip of NG overlies the gastric body.Electronically signed by: PHYSICIAN CECILIA Normal [facility] NR MRI BRAIN WOon 08-13-2017 NR MRI [...] Chiari malformation. The study was interpreted at [facility].Electronicall y signed by: SABAS GARCIA MD Normal [facility] Surgical Pathology Depar tmenton 08-11-2017 [facility] Surgical Pathology Department Name PILI PARIKHRossy Pathologist: SANAZ MARIate of Procedure: 08/11/2017Date Received: 08/11/2017Date Reported 08/12/2017Submitting [...] submitted in toto in one cassette.MXWmxw/08/11/2017 Normal [facility] Comment on above: Performed By: #### T 4FRE ####[facility] [place] [address] AMYLASEon 08-10-2017 Amylase enzyme act/vol 19 U/L Normal 18 - 76 [facility] Comment on above: Performed By: #### V TDOH ####[facility] [place] [address] C-REACTIVE PROTEINon 017 CRP mass conc 0.34 mg/dL Normal [facility] Comment on above: Result Comment: REF VALUE< 1.00 Performed By: #### V TDOH ####[facility] [place] [address] CBC AND DIFFERENTIALon 08-10 % AUTOMATED IMMATURE GRAN 0.3 % Normal 0.0 - 1.0 [facility] Comment on above: Result Comment: Perc ent differential counts (%) should be interpreted in the context of the absolute cell counts (cells/L). Performed By: #### V TDOH ####[facility] [place] [address] % NEUTROPHIL 52.9 % Normal 33.0 - 69.0 [facility] Comment on above: Performed By: #### V TDOH ####[facility] [place] [address] Basophils/100 WBC Auto (Bld) 0.4 % Normal 0.0 - 1.0 [facility] Comment on above: Performed By: #### V TDOH ####[facility] [place] [address] Basophils/100 WBC Auto (Bld) 0.03 x10E9/L Normal 0.00 - 0.10 [facility] Comment on above: Performed By: #### V TDOH ####[facility] [place] [address] Eosinophils Auto #/vol (Bld) 0.29 10*3/uL Normal 0.00 - 0.70 [facility] Comment on above: Performed By: #### V TDOH ####[facility] [place] [address] Eosinophils/100 WBC Auto (Bld) 4.2 % Normal 0.0 - 5.0 [facility] Comment on above: Performed By: #### V TDOH ####[facility] [place] [address] Erythrocyte distribution width Auto Ratio (RBC) 14.1 % Normal 11.5 - 14.5 [facility] Comment on above: Performed By: #### V TDOH ####[facility] [place] [address] Hematocrit Auto Volume Fraction (Bld) 35.4 % Low 36.0 - 46.0 [facility] Comment on above: Performed By: #### V TDOH ####[facility] [place] [address] Hemoglobin mass conc (Bld) 11.0 g/dL Low 12.0 - 16.0 [facility] Comment on above: Performed By: #### V TDOH ####[facility] [place] [address] Lymphocytes Auto #/vol (Bld) 2.33 10*3/uL Normal 1.80 - 4.80 [facility] Comment on above: Performed By: #### V TDOH ####[facility] [place] [address] Lymphocytes/100 WBC Auto (Bld) 33.8 % Normal 28.0 - 48.0 [facility] Comment on above: Performed By: #### V TDOH ####[facility] [place] [address] MCHC Auto mass conc (RBC) 31.1 g/dL Normal 31.0 - 37.0 [facility] Comment on above: Performed By: #### V TDOH ####[facility] [place] [address] MCV Auto Entitic volume (RBC) 80 fL Normal 78 - 102 [facility] Comment on above: Performed By: #### V TDOH ####[facility] [place] [address] Monocytes Auto #/vol (Bld) 0.58 10*3/uL Normal 0.10 - 1.00 [facility] Comment on above: Performed By: #### V TDOH ####[facility] [place] [address] Monocytes/100 WBC Auto (Bld) 8.4 % Normal 3.0 - 9.0 [facility] Comment on above: Performed By: #### V TDOH ####[facility] [place] [address] Neutrophils Auto #/vol (Bld) 3.65 10*3/uL Normal 1.20 - 7.70 [facility] Comment on above: Performed By: #### V TDOH ####[facility] [place] [address] Nucleated RBC/100 WBC Ratio (Bld) 0.0 /100 WBC Normal 0.0-0.0 [facility] Comment on above: Performed By: #### V TDOH ####[place] [address] [place] [address] Platelets Auto #/vol (Bld) 256 10*3/uL Normal 150 - 400 [facility] Comment on above: Performed By: #### V TDOH ####[place] [address] [place] [address] RBC Auto #/vol (Bld) 4.40 x10E12/L Normal 4.10 - 5.20 [facility] Comment on above: Performed By: #### V TDOH ####[place] [address] [place] [address] WBC Auto #/vol (Bld) 6.9 10*3/uL Normal 4.5 - 13.5 [facility] Comment on above: Performed By: #### V TDOH ####[place] [address] [place] [address] CELIAC DISEASE SEROLOGY PANE Tushar 08-10-2017 GLIADIN ABS, IGA 0 Normal 0 - 14 [facility] Comment on above: Result Comment: Fals e negative Deamidated Gliadin Peptide Antibody, IgA results can occur in patients already adhering to a gluten-free diet or patients with IgA deficiency. Tissue Transglutaminase Antibody, IgA is the preferred test for screening patients with suspected Celiac Disease. Performed By: #### T 4FRE ####[facility] [place] [address] GLIADIN ABS, IGG <1 Normal 0 - 14 [facility] Comment on above: Result Comment: Fals e negative Deamidated Gliadin Peptide Antibody, IgG results can occur in patients already adhering to a gluten-free diet. Tissue Transglutaminase Antibody, IgA is the preferred test for screening patients with suspected Celiac Disease. Performed By: #### T 4FRE ####[facility] [place] [address] TTG AB,IGA <1 Normal 0 - 14 [facility] Comment on above: Result Comment: Loni ac disease is unlikely. False negative Tissue Transglutaminase Antibody, IgA results can occur in approximately 10% of patients with celiac disease, patients already adhering to a gluten-free diet, or patients with IgA deficiency. Performed By: #### T 4FRE ####[facility] [place] [address] TTG AB,IGG <1 Normal 0 - 14 [facility] Comment on above: Result Comment: Fals e negative Tissue Transglutaminase Antibody, IgG results can occur in patients already adhering to a gluten-free diet. Tissue Transglutaminase Antibody, IgA is the preferred test for screening patients with suspected Celiac Disease. Performed By: #### T 4FRE ####[facility] [place] [address] COAGULATION SCREENon 017 aPTT Coag time (Bld) 28 s Normal 25 - 36 [facility] Comment on above: Result Comment: THE APTT IS NO LONGER USED FOR MONITORING UNFRACTIONATED HEPARIN THERAPY. FOR MONITORING HEPARIN THERAPY, USE THE HEPARIN ASSAY. Performed By: #### V TDOH ####[facility] [place] [address] INR Coag RelTime (PPP) 1.1 {INR} Normal 0.9 - 1.1 [facility] Comment on above: Performed By: #### V TDOH ####[facility] [place] [address] Prothrombin time (PT) Coag time (PPP) 12.1 s Normal 9.8 - 12.7 [facility] Comment on above: Performed By: #### V TDOH ####[facility] [place] [address] HEPATIC FUNCTION PANELon ALP enzyme act/vol 128 U/L Normal 52 - 239 [facility] Comment on above: Performed By: #### V TDOH ####[facility] [place] [address] ALT enzyme act/vol 39 U/L High 3 - 28 [facility] Comment on above: Result Comment: Christen ents treated with Sulfasalazine may generate falsely decreased results for ALT. Performed By: #### V TDOH ####[facility] [place] [address] AST enzyme act/vol 27 U/L High 9 - 24 [facility] Comment on above: Performed By: #### V TDOH ####[facility] [place] [address] Bilirubin mass conc 0.4 mg/dL Normal 0.0 - 0.9 [facility] Comment on above: Performed By: #### V TDOH ####[facility] [place] [address] Bilirubin.direct mass conc 0.1 mg/dL Normal 0.0 - 0.3 [facility] Comment on above: Performed By: #### V TDOH ####[facility] [place] [address] Protein mass conc 5.7 g/dL Low 6.2 - 7.7 [facility] Comment on above: Performed By: #### V TDOH ####[facility] [place] [address] LIPASEon 08-10-2017 Lipase enzyme act/vol 16 U/L Normal 9 - 82 [facility] Comment on above: Result Comment: Shanda puncture immediately after or during the administration of Metamizole may lead to falsely low results. Testing should be performed immediately prior to Metamizole dosing. Performed By: #### V TDOH ####[facility] [place] [address] RENAL FUNCTION PANELon 08-10 Albumin mass conc 3.8 g/dL Normal 3.4 - 5.0 [facility] Comment on above: Performed By: #### T 4FRE ####[facility] [place] [address] Performed By: #### V TDOH ####[facility] [place] [address] Anion gap 3 molar conc 13 mmol/L Normal 10 - 30 [facility] Comment on above: Performed By: #### T 4FRE ####[facility] [place] [address] Calcium mass conc 9.2 mg/dL Normal 8.5 - 10.7 [facility] Comment on above: Performed By: #### T 4FRE ####[facility] [place] [address] Chloride molar conc 106 mmol/L Normal 98 - 107 [facility] Comment on above: Performed By: #### T 4FRE ####[facility] [place] [address] Creatinine mass conc 0.56 mg/dL Normal 0.50 - 1.00 [facility] Comment on above: Performed By: #### T 4FRE ####[facility] [place] [address] Glucose mass conc 106 mg/dL High 74 - 99 [facility] Comment on above: Performed By: #### T 4FRE ####[facility] [place] [address] HCO3 molar conc (Bld) 26 mmol/L Normal 18 - 27 [facility] Comment on above: Performed By: #### T 4FRE ####[facility] [place] [address] Phosphate mass conc 4.3 mg/dL Normal 3.0 - 5.4 [facility] Comment on above: Result Comment: The performance characteristics of phosphorus testing in heparinized plasma have been validated by the individual laboratory site where testing is performed. Testing on heparinized plasma is not approved by the FDA; however, such approval is not necessary. Performed By: #### T 4FRE ####[facility] [place] [address] Potassium molar conc 3.9 mmol/L Normal 3.5 - 5.3 [facility] Comment on above: Performed By: #### T 4FRE ####[facility] [place] [address] Sodium molar conc 141 mmol/L Normal 136 - 145 [facility] Comment on above: Performed By: #### T 4FRE ####[facility] [place] [address] Urea nitrogen mass conc 11 mg/dL Normal 6 - 23 [facility] Comment on above: Performed By: #### T 4FRE ####[facility] [place] [address] AMYLASEon 08-09-2017 Amylase enzyme act/vol 22 U/L Normal 18 - 76 [facility] Comment on above: Performed By: #### A MY ####[facility] [place] [address] C-REACTIVE PROTEINon 017 CRP mass conc 0.36 mg/dL Normal [facility] Comment on above: Result Comment: REF VALUE< 1.00 Performed By: #### C RP ####[facility] [place] [address] CBC AND DIFFERENTIALon 08-09 % AUTOMATED IMMATURE GRAN 0.3 % Normal 0.0 - 1.0 [facility] Comment on above: Result Comment: Perc ent differential counts (%) should be interpreted in the context of the absolute cell counts (cells/L). Performed By: #### C BCDF ####[facility] [place] [address] % NEUTROPHIL 60.6 % Normal 33.0 - 69.0 [facility] Comment on above: Performed By: #### C BCDF ####[facility] [place] [address] Basophils/100 WBC Auto (Bld) 0.04 x10E9/L Normal 0.00 - 0.10 [facility] Comment on above: Performed By: #### C BCDF ####[facility] [place] [address] Basophils/100 WBC Auto (Bld) 0.5 % Normal 0.0 - 1.0 [facility] Comment on above: Performed By: #### C BCDF ####[facility] [place] [address] Eosinophils Auto #/vol (Bld) 0.28 10*3/uL Normal 0.00 - 0.70 [facility] Comment on above: Performed By: #### C BCDF ####[facility] [place] [address] Eosinophils/100 WBC Auto (Bld) 3.6 % Normal 0.0 - 5.0 [facility] Comment on above: Performed By: #### C BCDF ####[facility] [place] [address] Erythrocyte distribution width Auto Ratio (RBC) 14.4 % Normal 11.5 - 14.5 [facility] Comment on above: Performed By: #### C BCDF ####[facility] [place] [address] Hematocrit Auto Volume Fraction (Bld) 37.7 % Normal 36.0 - 46.0 [facility] Comment on above: Performed By: #### C BCDF ####[facility] [place] [address] Hemoglobin mass conc (Bld) 11.5 g/dL Low 12.0 - 16.0 [facility] Comment on above: Performed By: #### C BCDF ####[facility] [place] [address] Lymphocytes Auto #/vol (Bld) 2.20 10*3/uL Normal 1.80 - 4.80 [facility] Comment on above: Performed By: #### C BCDF ####[facility] [place] [address] Lymphocytes/100 WBC Auto (Bld) 28.2 % Normal 28.0 - 48.0 [facility] Comment on above: Performed By: #### C BCDF ####[facility] [place] [address] MCHC Auto mass conc (RBC) 30.5 g/dL Low 31.0 - 37.0 [facility] Comment on above: Performed By: #### C BCDF ####[facility] [place] [address] MCV Auto Entitic volume (RBC) 82 fL Normal 78 - 102 [facility] Comment on above: Performed By: #### C BCDF ####[facility] [place] [address] Monocytes Auto #/vol (Bld) 0.53 10*3/uL Normal 0.10 - 1.00 [facility] Comment on above: Performed By: #### C BCDF ####[facility] [place] [address] Monocytes/100 WBC Auto (Bld) 6.8 % Normal 3.0 - 9.0 [facility] Comment on above: Performed By: #### C BCDF ####[facility] [place] [address] Neutrophils Auto #/vol (Bld) 4.73 10*3/uL Normal 1.20 - 7.70 [facility] Comment on above: Performed By: #### C BCDF ####[facility] [place] [address] Nucleated RBC/100 WBC Ratio (Bld) 0.0 /100 WBC Normal 0.0-0.0 [facility] Comment on above: Performed By: #### C BCDF ####[facility] [place] [address] Platelets Auto #/vol (Bld) 290 10*3/uL Normal 150 - 400 [facility] Comment on above: Performed By: #### C BCDF ####[facility] [place] [address] RBC Auto #/vol (Bld) 4.62 x10E12/L Normal 4.10 - 5.20 [facility] Comment on above: Performed By: #### C BCDF ####[facility] [place] [address] WBC Auto #/vol (Bld) 7.8 10*3/uL Normal 4.5 - 13.5 [facility] Comment on above: Performed By: #### C BCDF ####[facility] [place] [address] COAGULATION SCREENon 017 aPTT Coag time (Bld) 29 s Normal 25 - 36 [facility] Comment on above: Result Comment: THE APTT IS NO LONGER USED FOR MONITORING UNFRACTIONATED HEPARIN THERAPY. FOR MONITORING HEPARIN THERAPY, USE THE HEPARIN ASSAY. Performed By: #### V TDOH ####[facility] [place] [address] INR Coag RelTime (PPP) 1.2 {INR} High 0.9 - 1.1 [facility] Comment on above: Performed By: #### V TDOH ####[facility] [place] [address] Prothrombin time (PT) Coag time (PPP) 12.9 s High 9.8 - 12.7 [facility] Comment on above: Performed By: #### V TDOH ####[facility] [place] [address] ESR-WESTERGRENon 08-09-2017 ESR-WESTERGREN 8 mm/h Normal 0 - 13 [facility] Comment on above: Performed By: #### V TDOH ####[facility] [place] [address] GGTon 08-09-2017 GGT 20 U/L Normal 5 - 20 [facility] Comment on above: Performed By: #### G GT ####[facility] [place] [address] HEMOGLOBIN A1Con 08-09-2017 Hemoglobin A1c/Hemoglobin.total mass fraction (Bld) 5.6 % Normal [facility] Comment on above: Result Comment: Diag nosis of Diabetes-Adults Non-Diabetic: < or = 5.6% Increased risk for developing diabetes: 5.7-6.4% Diagnostic of diabetes: > or = 6.5%. Monitoring of Diabetes Age (y) Therapeutic Goal (%) Adults: >18 <7.0 Pediatrics: 13-18 <7.5 7-12 <8.0 0- 6 7.5-8.5 [employer]. Diabetes Care 33(S1), Nov 2009. Performed By: #### V TDOH ####[facility] [place] [address] HEPATIC FUNCTION PANELon ALP enzyme act/vol 133 U/L Normal 52 - 239 [facility] Comment on above: Performed By: #### H EPFP ####[facility] [place] [address] ALT enzyme act/vol 41 U/L High 3 - 28 [facility] Comment on above: Result Comment: Christen ents treated with Sulfasalazine may generate falsely decreased results for ALT. Performed By: #### H EPFP ####[facility] [place] [address] AST enzyme act/vol 25 U/L High 9 - 24 [facility] Comment on above: Performed By: #### H EPFP ####[facility] [place] [address] Bilirubin mass conc 0.3 mg/dL Normal 0.0 - 0.9 [facility] Comment on above: Performed By: #### H EPFP ####[facility] [place] [address] Bilirubin.direct mass conc 0.1 mg/dL Normal 0.0 - 0.3 [facility] Comment on above: Performed By: #### H EPFP ####[facility] [place] [address] Protein mass conc 6.7 g/dL Normal 6.2 - 7.7 [facility] Comment on above: Performed By: #### H EPFP ####[facility] [place] [address] IRON + TIBCon 08-09-2017 % SATURATION 13 % Low 25 - 45 [facility] Comment on above: Performed By: #### I RONT ####[facility] [place] [address] Iron mass conc 53 ug/dL Normal 23 - 138 [facility] Comment on above: Performed By: #### I RONT ####[facility] [place] [address] TIBC 407 ug/dL Normal 240 - 445 [facility] Comment on above: Performed By: #### I RONT ####[facility] [place] [address] LIPASEon 08-09-2017 Lipase enzyme act/vol 17 U/L Normal 9 - 82 [facility] Comment on above: Result Comment: Shanda puncture immediately after or during the administration of Metamizole may lead to falsely low results. Testing should be performed immediately prior to Metamizole dosing. Performed By: #### L IPAS ####[facility] [place] [address] RENAL FUNCTION PANELon 08-09 Albumin mass conc 4.3 g/dL Normal 3.4 - 5.0 [facility] Comment on above: Performed By: #### V TDOH ####[facility] [place] [address] Performed By: #### H EPFP ####[facility] [place] [address] Anion gap 3 molar conc 13 mmol/L Normal 10 - 30 [facility] Comment on above: Performed By: #### V TDOH ####[facility] [place] [address] Calcium mass conc 9.5 mg/dL Normal 8.5 - 10.7 [facility] Comment on above: Performed By: #### V TDOH ####[facility] [place] [address] Chloride molar conc 105 mmol/L Normal 98 - 107 [facility] Comment on above: Performed By: #### V TDOH ####[facility] [place] [address] Creatinine mass conc 0.50 mg/dL Normal 0.50 - 1.00 [facility] Comment on above: Performed By: #### V TDOH ####[facility] [place] [address] Glucose mass conc 83 mg/dL Normal 74 - 99 [facility] Comment on above: Performed By: #### V TDOH ####[facility] [place] [address] HCO3 molar conc (Bld) 27 mmol/L Normal 18 - 27 [facility] Comment on above: Performed By: #### V TDOH ####[facility] [place] [address] Phosphate mass conc 4.1 mg/dL Normal 3.0 - 5.4 [facility] Comment on above: Result Comment: The performance characteristics of phosphorus testing in heparinized plasma have been validated by the individual laboratory site where testing is performed. Testing on heparinized plasma is not approved by the FDA; however, such approval is not necessary. Performed By: #### V TDOH ####[facility] [place] [address] Potassium molar conc 4.1 mmol/L Normal 3.5 - 5.3 [facility] Comment on above: Performed By: #### V TDOH ####[facility] [place] [address] Sodium molar conc 141 mmol/L Normal 136 - 145 [facility] Comment on above: Performed By: #### V TDOH ####[facility] [place] [address] Urea nitrogen mass conc 11 mg/dL Normal 6 - 23 [facility] Comment on above: Performed By: #### V TDOH ####[facility] [place] [address] THYROXINE,FREEon 09-12-2017 THYROXINE,FREE 1.08 ng/dL Normal 0.78 - 1.48 [facility] Comment on above: Result Comment: Thyr oxine Free testing is performed using different testing methodology at [facility] than at other [facility]. Direct result comparisons should only be made within the same method.. Patients receiving more than 5 mg/day of biotin may have interference in test results. A sample should be taken no sooner than eight hours after previous dose. Contact [phone] for additional information. Performed By: #### T 4FRE ####[facility] [place] [address] TSHon 08-09-2017 Thyrotropin Qn 1.71 m[IU]/L Normal 0.44 - 3.98 [facility] Comment on above: Result Comment: TSH testing is performed using different testing methodology at [facility] than at other [facility]. Direct result comparisons should only be made within the same method.. Patients receiving more than 5 mg/day of biotin may have interference in test results. A sample should be taken no sooner than eight hours after previous dose. Contact [phone] for additional information. Performed By: #### T SH2 ####[facility] [place] [address] VITAMIN D, 25-HYDROXYon 07-29 VITAMIN D, 25-HYDROXY 28 ng/mL Abnormal [facility] Comment on above: Result Comment: .DEF ICIENCY: < 20 NG/MLINSUFFICIENCY: 20-29 NG/MLOPTIMUM LEVEL: 30-80 NG/MLPOSSIBLE TOXICITY: > 80 NG/MLTHIS ASSAY ACCURATELY QUANTIFIES THE SUM OFVITAMIN D3, 25-HYDROXY AND VIT D2,25-HYDROXY. Performed By: #### V TDOH ####[facility] [place] [address] Vital Signs Date Time Vital Sign Value Performing Clinician Facility 03-19-2024 00:10-0400 Diastolic blood pressure 90 mm[Hg] Services [employer] Work Phone: [facility] 03-19-2024 00:10-0400 Heart rate 110 /min Services [facility] Work Phone: [facility] 03-19-2024 00:10-0400 Respiratory rate 18 /min Services [employer] Work Phone: [facility] 03-19-2024 00:10-0400 SaO2% (BldA) [Mass fraction] 100 % Services [employer] Work Phone: [facility] 03-19-2024 00:10-0400 Systolic blood pressure 144 mm[Hg] Services [employer] Work Phone: [facility] 03-18-2024 22:03-0400 Body height 160.02 cm Services [facility] [employer] Work Phone: [facility] 03-18-2024 22:03-0400 Body temperature 98.3 [degF] Services [facility] [employer] Work Phone: [facility] 03-18-2024 22:03-0400 Body weight 92.2 kg Services [facility] [employer] Work Phone: [facility] 03-15-2024 13:43-0400 Diastolic blood pressure 89 mm[Hg] [facility] 03-15-2024 13:43-0400 Heart rate 51 /min [facility] 03-15-2024 13:43-0400 Mean blood pressure 107 mm[Hg] [facility] 03-15-2024 13:43-0400 Respiratory rate 16 /min [facility] 03-15-2024 13:43-0400 SaO2% (BldA) [Mass fraction] 100 % [facility] 03-15-2024 13:43-0400 Systolic blood pressure 144 mm[Hg] [facility] 03-15-2024 12:01-0400 Diastolic blood pressure 87 mm[Hg] [facility] 03-15-2024 12:01-0400 Heart rate 52 /min [facility] 03-15-2024 12:01-0400 Mean blood pressure 107 mm[Hg] [facility] 03-15-2024 12:01-0400 SaO2% (BldA) [Mass fraction] 100 % [facility] 03-15-2024 12:01-0400 Systolic blood pressure 148 mm[Hg] [facility] 03-15-2024 10:35-0400 Body temperature 97.52 [degF] [facility] 03-15-2024 10:35-0400 Diastolic blood pressure 86 mm[Hg] [facility] 03-15-2024 10:35-0400 Heart rate 60 /min [facility] 03-15-2024 10:35-0400 Respiratory rate 18 /min [facility] 03-15-2024 10:35-0400 SaO2% (BldA) [Mass fraction] 98 % [facility] 03-15-2024 10:35-0400 Systolic blood pressure 143 mm[Hg] [facility] 03-13-2024 22:00-0400 Diastolic blood pressure 105 mm[Hg] Jacinto Roman [facility] 03-13-2024 22:00-0400 Heart rate 53 /min Jacinto Roman [facility] 03-13-2024 22:00-0400 Mean blood pressure 117 mm[Hg] Jacinto Jessie [facility] 03-13-2024 22:00-0400 SaO2% (BldA) [Mass fraction] 100 % Jacinto Ernandeze [facility] 03-13-2024 22:00-0400 Systolic blood pressure 140 mm[Hg] Jacinto Ernandeze [facility] 03-13-2024 21:00-0400 Diastolic blood pressure 106 mm[Hg] Jacinto Ernandeze [facility] 03-13-2024 21:00-0400 Heart rate 93 /min Jacinto Jessie [facility] 03-13-2024 21:00-0400 Mean blood pressure 119 mm[Hg] Jacinto Ernandeze [facility] 03-13-2024 21:00-0400 Respiratory rate 21 /min Jacinto Ernandeze [facility] 03-13-2024 21:00-0400 SaO2% (BldA) [Mass fraction] 98 % Jacinto Jessie [facility] 03-13-2024 21:00-0400 Systolic blood pressure 144 mm[Hg] Jacinto Ernandeze [facility] 03-13-2024 20:00-0400 Diastolic blood pressure 103 mm[Hg] Jacinto Ernandeze [facility] 03-13-2024 20:00-0400 Heart rate 50 /min Jacinto Ernandeze [facility] 03-13-2024 20:00-0400 Mean blood pressure 120 mm[Hg] Jacinto Ernandeze [facility] 03-13-2024 20:00-0400 Systolic blood pressure 153 mm[Hg] Jacinto Ernandeze [facility] 03-13-2024 19:38-0400 Respiratory rate 14 /min Jacinto Jessie [facility] 03-13-2024 18:36-0400 Respiratory rate 18 /min Jacinto Ernandeze [facility] 03-13-2024 17:51-0400 Body temperature 98.24 [degF] Jacinto Jessie [facility] 03-13-2024 17:36-0400 Body temperature 98.24 [degF] Jacinto Roman [facility] 03-13-2024 17:36-0400 Heart rate 61 /min Jacinto Roman [facility] 03-13-2024 17:36-0400 Respiratory rate 18 /min Jacinto Roman [facility] 07-31-2023 18:09-0400 Body height 157.48 cm [facility] Work Phone: [facility] 07-31-2023 18:09-0400 Body temperature 98.6 [degF] [facility] Work Phone: [facility] 07-31-2023 18:09-0400 Body weight 84 kg [facility] Work Phone: [facility] 07-31-2023 18:09-0400 Diastolic blood pressure 106 mm[Hg] [facility] Work Phone: [facility] 07-31-2023 18:09-0400 Heart rate 87 /min [facility] Work Phone: [facility] 07-31-2023 18:09-0400 Respiratory rate 18 /min [facility] Work Phone: [facility] 07-31-2023 18:09-0400 SaO2% (BldA) [Mass fraction] 98 % [facility] Work Phone: [facility] 07-31-2023 18:09-0400 Systolic blood pressure 150 mm[Hg] [facility] Work Phone: [facility] 05-25-2023 13:11-0400 Diastolic blood pressure 96 mm[Hg] [facility] Work Phone: [facility] 05-25-2023 13:11-0400 Heart rate 60 /min [facility] Work Phone: [place] [facility] 05-25-2023 13:11-0400 Respiratory rate 16 /min Services [facility] Work Phone: [facility] 05-25-2023 13:11-0400 SaO2% (BldA) [Mass fraction] 97 % Services [employer] Work Phone: [facility] 05-25-2023 13:11-0400 Systolic blood pressure 160 mm[Hg] Services [employer] Work Phone: [facility] 05-25-2023 11:56-0400 Inhaled oxygen flow rate 6 L/min Services [employer] Work Phone: [facility] 05-25-2023 11:54-0400 Body temperature 97.2 [degF] Services [employer] Phone: [facility] 05-25-2023 09:39-0400 Body height 160.02 cm Services [employer] Phone: [facility] 05-25-2023 09:39-0400 Body mass index (BMI) [Percentile] Per age and sex 96.6 % Services [employer] Phone: [facility] 05-25-2023 09:39-0400 Body mass index (BMI) [Ratio] 33.6 kg/m2 Services [employer] Phone: [facility] 05-25-2023 09:39-0400 Body weight 86.18 kg Services [employer] Phone: [facility] 05-23-2023 08:00-0400 Body height 157.48 cm Colten Wesley[facility] Other [facility] Other 05-23-2023 08:00-0400 Body mass index (BMI) [Ratio] 34.75 kg/m2 Colten Olexa Other [facility] Other 05-23-2023 08:00-0400 Body weight 86.18 kg Colten Olexa Other [facility] Other 01-07-2023 14:08-0500 Body height 157.48 cm Services [facility] Work Phone: [facility] 01-07-2023 12:34-0500 Body temperature 98.1 [degF] Services [facility] Work Phone: [facility] 01-07-2023 12:34-0500 Diastolic blood pressure 86 mm[Hg] Services [facility] Work Phone: [facility] 01-07-2023 12:34-0500 Heart rate 75 /min Services [facility] [employer] [facility] Work Phone: [facility] 01-07-2023 12:34-0500 SaO2% (BldA) [Mass fraction] 100 % Services [facility] Work Phone: [facility] 01-07-2023 12:34-0500 Systolic blood pressure 147 mm[Hg] Services [facility] Work Phone: [facility] 01-07-2023 11:57-0500 Respiratory rate 18 /min Services [facility] Work Phone: [facility] 01-07-2023 06:00-0500 Body weight 78.2 kg Services [facility] Work Phone: [facility] 01-06-2023 18:29-0500 Diastolic blood pressure 82 mm[Hg] Services [facility] Work Phone: [facility] 01-06-2023 18:29-0500 Heart rate 64 /min Services [facility] [employer] [facility] Work Phone: [facility] 01-06-2023 18:29-0500 Respiratory rate 16 /min Services [facility] Work Phone: [facility] 01-06-2023 18:29-0500 SaO2% (BldA) [Mass fraction] 98 % Services [facility] Work Phone: [facility] 01-06-2023 18:29-0500 Systolic blood pressure 139 mm[Hg] Services [facility] [employer] [facility] Work Phone: [facility] 01-06-2023 11:12-0500 Body height 157.48 cm Services [facility] Work Phone: [facility] 01-06-2023 11:12-0500 Body temperature 98 [degF] [facility] Work Phone: [facility] 01-06-2023 11:12-0500 Body weight 77.11 kg [facility] Work Phone: [facility] 01-02-2023 04:00-0500 Heart rate 62 /min Services [facility] Work Phone: [facility] 01-02-2023 04:00-0500 Respiratory rate 18 /min Services [facility] Work Phone: [facility] 01-02-2023 04:00-0500 SaO2% (BldA) [Mass fraction] 100 % Services [facility] Work Phone: [facility] 01-02-2023 02:37-0500 Diastolic blood pressure 85 mm[Hg] Services [facility] Work Phone: [facility] 01-02-2023 02:37-0500 Systolic blood pressure 155 mm[Hg] Services [facility] Work Phone: [facility] 01-02-2023 01:14-0500 Body height 157.48 cm Services [facility] Work Phone: [facility] 01-02-2023 01:14-0500 Body temperature 98 [degF] Services [facility] Work Phone: [facility] 01-02-2023 01:14-0500 Body weight 77.11 kg Services [facility] Work Phone: [facility] 12-31-2022 12:11-0500 Heart rate 70 /min Services [facility] Work Phone: [facility] 12-31-2022 12:08-0500 Body height 157.48 cm [facility] Work Phone: [facility] 12-31-2022 12:08-0500 Body temperature 97.7 [degF] Services [facility] Work Phone: [facility] 12-31-2022 12:08-0500 Body weight 79 kg Services [facility] Work Phone: [facility] 12-31-2022 12:08-0500 Diastolic blood pressure 87 mm[Hg] Services [facility] Work Phone: [facility] 12-31-2022 12:08-0500 Respiratory rate 18 /min Services [facility] Work Phone: [facility] 12-31-2022 12:08-0500 SaO2% (BldA) [Mass fraction] 99 % Services [facility] Work Phone: [facility] 12-31-2022 12:08-0500 Systolic blood pressure 134 mm[Hg] Services [facility] Work Phone: [facility] 11-09-2022 15:15-0500 Body height 157.48 cm Services [facility] Work Phone: [facility] 11-09-2022 15:15-0500 Body temperature 98.4 [degF] Services [facility] Work Phone: [facility] 11-09-2022 15:15-0500 Body weight 81.64 kg Services [facility] Work Phone: [facility] 11-09-2022 15:15-0500 Diastolic blood pressure 90 mm[Hg] Services [facility] Work Phone: [facility] 11-09-2022 15:15-0500 Heart rate 95 /min Services [facility] Work Phone: [facility] 11-09-2022 15:15-0500 Respiratory rate 16 /min Services [facility] Work Phone: [facility] 11-09-2022 15:15-0500 SaO2% (BldA) [Mass fraction] 100 % [facility] Work Phone: [facility] 11-09-2022 15:15-0500 Systolic blood pressure 140 mm[Hg] [facility] Work Phone: [facility] 11-07-2022 13:40-0500 Diastolic blood pressure 85 mm[Hg] [facility] Work Phone: [facility] 11-07-2022 13:40-0500 Heart rate 68 /min [facility] Work Phone: [facility] 11-07-2022 13:40-0500 Respiratory rate 16 /min [facility] Work Phone: [facility] 11-07-2022 13:40-0500 SaO2% (BldA) [Mass fraction] 100 % Services [facility] Work Phone: [facility] 11-07-2022 13:40-0500 Systolic blood pressure 119 mm[Hg] [facility] Work Phone: [facility] 11-07-2022 11:05-0500 Body temperature 98.2 [degF] [facility] Work Phone: [facility] 11-07-2022 11:04-0500 Body height 158.75 cm [facility] Work Phone: [facility] 11-07-2022 11:04-0500 Body weight 77 kg [facility] Work Phone: [facility] 11-02-2022 09:53-0500 Diastolic blood pressure 89 mm[Hg] [facility] Work Phone: [facility] 11-02-2022 09:53-0500 Heart rate 50 /min [facility] Work Phone: [facility] 11-02-2022 09:53-0500 Respiratory rate 18 /min Services [facility] Work Phone: [facility] 11-02-2022 09:53-0500 SaO2% (BldA) [Mass fraction] 98 % Services [facility] Work Phone: [facility] 11-02-2022 09:53-0500 Systolic blood pressure 156 mm[Hg] [facility] Work Phone: [facility] 11-02-2022 03:00-0500 Body height 157.48 cm Services [facility] Work Phone: [facility] 11-02-2022 03:00-0500 Body temperature 98.4 [degF] Services [facility] Work Phone: [facility] 11-02-2022 03:00-0500 Body weight 78 kg Services [facility] [employer] [facility] Work Phone: [facility] 10-31-2022 10:05-0500 Diastolic blood pressure 85 mm[Hg] Services [facility] Work Phone: [facility] 10-31-2022 10:05-0500 Heart rate 59 /min Services [facility] [employer] [facility] Work Phone: [facility] 10-31-2022 10:05-0500 Respiratory rate 18 /min Services [facility] Work Phone: [facility] 10-31-2022 10:05-0500 SaO2% (BldA) [Mass fraction] 98 % Services [facility] [employer] [facility] Work Phone: [facility] 10-31-2022 10:05-0500 Systolic blood pressure 137 mm[Hg] Services [facility] [employer] [facility] Work Phone: [facility] 10-31-2022 08:50-0500 Body height 157.48 cm Services [facility] Work Phone: [facility] 10-31-2022 08:50-0500 Body temperature 98.2 [degF] Services [facility] Work Phone: [facility] 10-31-2022 08:50-0500 Body weight 83.91 kg Services [facility] [employer] [facility] Work Phone: [facility] 10-29-2022 12:01-0500 Body height 157.48 cm Services [facility] Work Phone: [facility] 10-29-2022 12:01-0500 Body temperature 97.8 [degF] Services [facility] Work Phone: [facility] 10-29-2022 12:01-0500 Body weight 81 kg Services [facility] Work Phone: [facility] 10-29-2022 12:01-0500 Diastolic blood pressure 84 mm[Hg] Services [facility] Work Phone: [facility] 10-29-2022 12:01-0500 Heart rate 60 /min Services [facility] Work Phone: [facility] 10-29-2022 12:01-0500 Respiratory rate 18 /min Services [facility] Work Phone: [facility] 10-29-2022 12:01-0500 SaO2% (BldA) [Mass fraction] 99 % Services [facility] Work Phone: [facility] 10-29-2022 12:01-0500 Systolic blood pressure 109 mm[Hg] Services [facility] Work Phone: [facility] 08-22-2022 12:00-0400 Body temperature 98 [degF] Services [facility] Work Phone: [facility] 08-22-2022 12:00-0400 Diastolic blood pressure 78 mm[Hg] Services [facility] Work Phone: [facility] 08-22-2022 12:00-0400 Heart rate 80 /min [facility] Work Phone: [facility] 08-22-2022 12:00-0400 Respiratory rate 18 /min Services [facility] [employer] Work Phone: [facility] 08-22-2022 12:00-0400 SaO2% (BldA) [Mass fraction] 95 % [facility] Work Phone: [facility] 08-22-2022 12:00-0400 Systolic blood pressure 121 mm[Hg] Services [facility] Work Phone: [facility] 08-22-2022 05:50-0400 Body weight 77.5 kg [facility] Work Phone: [facility] 08-21-2022 11:27-0400 Body height 157.48 cm [facility] Work Phone: [facility] 08-20-2022 16:34-0400 Diastolic blood pressure 90 mm[Hg] [facility] Work Phone: [facility] 08-20-2022 16:34-0400 Heart rate 68 /min [facility] Work Phone: [facility] 08-20-2022 16:34-0400 Respiratory rate 20 /min [facility] Work Phone: [facility] 08-20-2022 16:34-0400 SaO2% (BldA) [Mass fraction] 96 % [facility] Work Phone: [facility] 08-20-2022 16:34-0400 Systolic blood pressure 142 mm[Hg] [facility] Work Phone: [facility] 08-20-2022 11:58-0400 Body height 157.48 cm [facility] Work Phone: [facility] 08-20-2022 11:58-0400 Body temperature 97.9 [degF] [facility] Work Phone: [facility] 08-20-2022 11:58-0400 Body weight 79.37 kg [facility] Work Phone: [facility] 08-20-2022 01:00-0400 Body temperature 97.9 [degF] [facility] Work Phone: [facility] 08-20-2022 01:00-0400 Diastolic blood pressure 72 mm[Hg] [facility] Work Phone: [facility] 08-20-2022 01:00-0400 Heart rate 53 /min [facility] Work Phone: [facility] 08-20-2022 01:00-0400 Respiratory rate 16 /min [facility] Work Phone: [facility] 08-20-2022 01:00-0400 SaO2% (BldA) [Mass fraction] 97 % [facility] Work Phone: [facility] 08-20-2022 01:00-0400 Systolic blood pressure 131 mm[Hg] [facility] Work Phone: [facility] 08-19-2022 18:57-0400 Body height 157.48 cm [facility] Work Phone: [facility] 08-19-2022 18:57-0400 Body weight 79.37 kg [facility] Work Phone: [facility] 08-19-2022 14:00-0400 Diastolic blood pressure 79 mm[Hg] [facility] Work Phone: [facility] 08-19-2022 14:00-0400 Heart rate 67 /min [facility] Work Phone: [facility] 08-19-2022 14:00-0400 Respiratory rate 20 /min [facility] Work Phone: [facility] 08-19-2022 14:00-0400 SaO2% (BldA) [Mass fraction] 99 % [facility] Work Phone: [facility] 08-19-2022 14:00-0400 Systolic blood pressure 139 mm[Hg] [facility] Work Phone: [facility] 08-19-2022 00:40-0400 Body height 157.48 cm [facility] Work Phone: [facility] 08-19-2022 00:40-0400 Body temperature 98.8 [degF] [facility] Work Phone: [facility] 08-19-2022 00:40-0400 Body weight 77.11 kg [facility] Work Phone: [facility] 08-18-2022 15:28-0400 Body temperature 97.8 [degF] [facility] Work Phone: [facility] 08-18-2022 15:28-0400 Diastolic blood pressure 90 mm[Hg] [facility] Work Phone: [facility] 08-18-2022 15:28-0400 Heart rate 54 /min [facility] Work Phone: [facility] 08-18-2022 15:28-0400 Respiratory rate 20 /min [facility] Work Phone: [facility] 08-18-2022 15:28-0400 SaO2% (BldA) [Mass fraction] 100 % [facility] Work Phone: [facility] 08-18-2022 15:28-0400 Systolic blood pressure 135 mm[Hg] [facility] Work Phone: [facility] 08-18-2022 12:26-0400 Body height 157.48 cm [facility] Work Phone: [facility] 08-18-2022 12:26-0400 Body weight 77.11 kg [facility] Work Phone: [facility] 06-09-2022 10:25-0400 Diastolic blood pressure 51 mm[Hg] [facility] Work Phone: [facility] 06-09-2022 10:25-0400 Heart rate 83 /min [facility] Work Phone: [facility] 06-09-2022 10:25-0400 Respiratory rate 20 /min [facility] Work Phone: [facility] 06-09-2022 10:25-0400 SaO2% (BldA) [Mass fraction] 98 % [facility] Work Phone: [facility] 06-09-2022 10:25-0400 Systolic blood pressure 92 mm[Hg] [facility] Work Phone: [facility] 06-09-2022 08:46-0400 Body height 157.48 cm Services [employer] Work Phone: [facility] 06-09-2022 08:46-0400 Body mass index (BMI) [Percentile] Per age and sex 96.2 % [facility] Work Phone: [facility] 06-09-2022 08:46-0400 Body mass index (BMI) [Ratio] 32 kg/m2 Services [employer] [facility] Work Phone: [facility] 06-09-2022 08:46-0400 Body temperature 97.4 [degF] Services [employer] [facility] Work Phone: [facility] 06-09-2022 08:46-0400 Body weight 79.37 kg Services [employer] [facility] Work Phone: [facility] 05-16-2022 13:52-0400 Diastolic blood pressure 96 mm[Hg] Services [employer] [facility] Work Phone: [facility] 05-16-2022 13:52-0400 Heart rate 66 /min Services [employer] Work Phone: [facility] 05-16-2022 13:52-0400 Respiratory rate 18 /min Services [employer] [facility] Work Phone: [facility] 05-16-2022 13:52-0400 SaO2% (BldA) [Mass fraction] 100 % [facility] Work Phone: [facility] 05-16-2022 13:52-0400 Systolic blood pressure 138 mm[Hg] Services [employer] [facility] Work Phone: [facility] 05-16-2022 11:54-0400 Body height 157.48 cm Services [employer] Work Phone: [facility] 05-16-2022 11:54-0400 Body mass index (BMI) [Percentile] Per age and sex 95.5 % Services [employer] Work Phone: [facility] 05-16-2022 11:54-0400 Body mass index (BMI) [Ratio] 31.1 kg/m2 Services [employer] Work Phone: [facility] 05-16-2022 11:54-0400 Body temperature 98.4 [degF] Services [employer] Work Phone: [facility] 05-16-2022 11:54-0400 Body weight 77.11 kg Services [employer] Work Phone: [facility] 05-15-2022 15:30-0400 Diastolic blood pressure 82 mm[Hg] Services [employer] Work Phone: [facility] 05-15-2022 15:30-0400 Heart rate 52 /min Services [employer] Work Phone: [facility] 05-15-2022 15:30-0400 Respiratory rate 14 /min Services [employer] Work Phone: [facility] 05-15-2022 15:30-0400 SaO2% (BldA) [Mass fraction] 99 % Services [employer] Work Phone: [facility] 05-15-2022 15:30-0400 Systolic blood pressure 134 mm[Hg] Services [employer] Work Phone: [facility] 05-15-2022 12:28-0400 Body height 157.48 cm Services [employer] Work Phone: [facility] 05-15-2022 12:28-0400 Body mass index (BMI) [Percentile] Per age and sex 95.5 % Services [employer] Work Phone: [facility] 05-15-2022 12:28-0400 Body mass index (BMI) [Ratio] 31 kg/m2 Services [employer] Work Phone: [facility] 05-15-2022 12:28-0400 Body temperature 98.1 [degF] [facility] Work Phone: [facility] 05-15-2022 12:28-0400 Body weight 77 kg [facility] Work Phone: [facility] 05-14-2022 22:56-0400 Body temperature 98.1 [degF] [facility] Work Phone: [facility] 05-14-2022 22:56-0400 Diastolic blood pressure 74 mm[Hg] [facility] Work Phone: [facility] 05-14-2022 22:56-0400 Heart rate 18 /min [facility] Work Phone: [facility] 05-14-2022 22:56-0400 Respiratory rate 18 /min Services [facility] Work Phone: [facility] 05-14-2022 22:56-0400 SaO2% (BldA) [Mass fraction] 94 % [facility] Work Phone: [facility] 05-14-2022 22:56-0400 Systolic blood pressure 137 mm[Hg] [facility] Work Phone: [facility] 05-14-2022 02:18-0400 Body height 157.48 cm Services [facility] Work Phone: [facility] 05-14-2022 02:18-0400 Body mass index (BMI) [Percentile] Per age and sex 95.5 % [facility] Work Phone: [facility] 05-14-2022 02:18-0400 Body mass index (BMI) [Ratio] 31.1 kg/m2 [facility] Work Phone: [facility] 05-14-2022 02:18-0400 Body temperature 97.9 [degF] Services [employer] Work Phone: [facility] 05-14-2022 02:18-0400 Body weight 77.11 kg [facility] Work Phone: [facility] 05-14-2022 02:18-0400 Diastolic blood pressure 65 mm[Hg] [facility] Work Phone: [facility] 05-14-2022 02:18-0400 Heart rate 54 /min [facility] Work Phone: [facility] 05-14-2022 02:18-0400 Respiratory rate 18 /min [facility] Work Phone: [facility] 05-14-2022 02:18-0400 SaO2% (BldA) [Mass fraction] 98 % [facility] Work Phone: [facility] 05-14-2022 02:18-0400 Systolic blood pressure 133 mm[Hg] [facility] Work Phone: [facility] 05-13-2022 12:09-0400 Heart rate 72 /min Services [facility] Work Phone: [facility] 05-13-2022 12:09-0400 Respiratory rate 18 /min Services [facility] Work Phone: [facility] 05-13-2022 12:09-0400 SaO2% (BldA) [Mass fraction] 98 % Services [facility] Work Phone: [facility] 05-13-2022 10:32-0400 Body height 156.21 cm Services [facility] Work Phone: [facility] 05-13-2022 10:32-0400 Body mass index (BMI) [Percentile] Per age and sex 95.9 % Services [facility] Work Phone: [facility] 05-13-2022 10:32-0400 Body mass index (BMI) [Ratio] 31.6 kg/m2 [facility] Work Phone: [facility] 05-13-2022 10:32-0400 Body temperature 98.1 [degF] Services [facility] Work Phone: [facility] 05-13-2022 10:32-0400 Body weight 77.11 kg Services [facility] Work Phone: [facility] 05-13-2022 10:32-0400 Diastolic blood pressure 87 mm[Hg] Services [facility] Work Phone: [facility] 05-13-2022 10:32-0400 Systolic blood pressure 145 mm[Hg] Services [facility] Work Phone: [facility] Encounters Encounter Date Encounter Type Care Provider Facility Start: 03-18-2024 End: 03-19-2024 Emergency department patient visit Services [facility] Facility:[facility] Start: 03-18-2024 End: 03-19-2024 Emergency department patient visit Services [facility] Work Phone: [facility] Work Phone: Start: 03-15-2024 End: 03-15-2024 Emergency department patient visit MODESTASHANTELL ARCHIBALD Facility:[facility] Start: 03-15-2024 End: 03-15-2024 Emergency department patient visit August Beck [facility] Start: 03-13-2024 End: 03-14-2024 Emergency department patient visit MODESTANASRA ARCHIBALD Facility:[facility] Start: 03-13-2024 End: 03-13-2024 Emergency department patient visit Jacinto Roman [facility] Start: 07-31-2023 End: 07-31-2023 Emergency department patient visit Services [facility] Facility:[facility] Start: 07-31-2023 End: 07-31-2023 Emergency department patient visit Services [facility] Work Phone: [facility] Work Phone: Start: 07-14-2023 End: 07-14-2023 ambulatory Colten Ole Facility:[facility] Start: 07-14-2023 End: 07-14-2023 ambulatory Services [facility] Work Phone: [facility] Work Phone: Start: 07-14-2023 End: 07-14-2023 Patient encounter procedure [facility] Work Phone: [facility] Start: 06-16-2023 End: 06-16-2023 ambulatory Colten Olexa Facility:[facility] Start: 06-16-2023 End: 06-16-2023 ambulatory [facility] Work Phone: [facility] Work Phone: Start: 06-16-2023 End: 06-16-2023 Patient encounter procedure [facility] Work Phone: [facility] Start: 06-02-2023 Postop follow up vis it related to original px Colten Olexa [facility] Start: 06-02-2023 End: 06-02-2023 ambulatory [facility] Work Phone: [facility] Other Start: 06-02-2023 End: 06-02-2023 Patient encounter procedure [facility] Work Phone: [facility] Start: 05-25-2023 End: 05-25-2023 ambulatory Colten Olexa Facility:[facility] Start: 05-25-2023 End: 05-25-2023 Admission to same day surgery center Services [facility] Work Phone: [facility] [place] Start: 05-25-2023 End: 05-25-2023 ambulatory [facility] Work Phone: [facility] Work Phone: Start: 05-24-2023 End: 05-24-2023 ambulatory Colten Olexa Other [facility] Other Start: 05-24-2023 Telephone encounter Colten Olexa [facility] Start: 05-23-2023 End: 05-23-2023 ambulatory Colten Olexa Other [facility] Other Start: 05-23-2023 Encounter for other preprocedural examination Colten Miller [facility] Start: 05-23-2023 Office outpatient ne w 45 minutes Colten Miller [facility] Start: 03-15-2023 End: 03-15-2023 Departed Referred Services [facility] Work Phone: [facility] Start: 01-26-2023 End: 01-26-[address] DOCTOR MCCLELLANDC Facility:[facility] Start: 01-06-2023 End: 01-07-2023 Evaluation and management of inpatient Services [facility] Work Phone: [facility] Work Phone: Start: 01-06-2023 observation encounter Services [facility] Work Phone: [facility] Work Phone: Start: 01-06-2023 End: 01-07-2023 Services [facility] Work Phone: [facility] Work Phone: Start: 01-02-2023 End: 01-02-2023 Services [facility] Work Phone: [facility] Work Phone: Start: 01-01-2023 End: 01-01-2023 ambulatory IRWIN LONG . Facility:[facility] Start: 12-31-2022 End: 12-31-2022 Emergency department patient visit Services [facility] Work Phone: [facility] Work Phone: Start: 12-31-2022 End: 12-31-2022 Services [facility] Work Phone: [facility] Work Phone: Start: 11-09-2022 End: 11-09-2022 Emergency department patient visit Services [facility] Work Phone: [facility] Work Phone: Start: 11-09-2022 End: 11-09-2022 [facility] Work Phone: [facility] Start: 11-07-2022 End: 11-07-2022 Emergency department patient visit [facility] Work Phone: [facility] Work Phone: Start: 11-07-2022 End: 11-07-2022 [facility] Work Phone: [facility] Start: 11-02-2022 End: 11-02-2022 Emergency department patient visit [facility] Work Phone: [facility] Work Phone: Start: 11-02-2022 End: 11-02-2022 [facility] Work Phone: [facility] Start: 10-31-2022 End: 10-31-2022 Emergency department patient visit [facility] Work Phone: [facility] Work Phone: Start: 10-31-2022 End: 10-31-2022 [facility] Work Phone: [facility] Start: 10-29-2022 End: 10-29-2022 Emergency department patient visit [facility] Work Phone: [facility] Start: 10-29-2022 End: 10-29-2022 [facility] Work Phone: [facility] Start: 08-27-2022 End: 08-27-2022 Departed Referred Services [facility] Work Phone: [facility] Start: 08-27-2022 End: 08-27-2022 [facility] Work Phone: [facility] Start: 08-20-2022 End: 08-22-2022 Evaluation and management of inpatient Services [facility] Work Phone: [facility] Start: 08-20-2022 End: 08-22-2022 [facility] Work Phone: [facility] Start: 08-19-2022 End: 08-20-2022 Emergency department patient visit [facility] Work Phone: [facility] Start: 08-19-2022 End: 08-20-2022 [facility] Work Phone: [facility] Start: 08-19-2022 End: 08-19-2022 Emergency department patient visit [facility] Work Phone: [facility] Start: 08-19-2022 End: 08-19-2022 [facility] Work Phone: [facility] Start: 08-18-2022 End: 08-18-2022 Emergency department patient visit [facility] Work Phone: [facility] Start: 08-18-2022 End: 08-18-2022 [facility] Work Phone: [facility] Start: 06-25-2022 End: 06-25-2022 Departed Referred Services [facility] Work Phone: [facility] Start: 06-09-2022 End: 06-09-2022 Admission to same day surgery center Services [facility] Work Phone: [facility] Start: 06-07-2022 End: 06-07-2022 Patient encounter procedure [facility] Work Phone: [facility] Start: 05-26-2022 End: 05-26-2022 Departed Referred [facility] Work Phone: [facility] Start: 05-16-2022 ambulatory Luana Mak RN NURSE SAL[employer] Comment on above: Abdominal Pain Start: 05-16-2022 End: 05-16-2022 Emergency department patient visit Services [facility] Work Phone: [facility] Start: 05-15-2022 End: 05-15-2022 Emergency department patient visit Services [facility] Work Phone: [facility] Start: 05-14-2022 End: 05-14-2022 Emergency department patient visit Services [facility] Work Phone: [facility] Start: 05-14-2022 End: 05-14-2022 Emergency department patient visit Services [facility] Work Phone: [facility] Start: 05-13-2022 End: 05-13-2022 Emergency department patient visit Services [facility] [employer] Phone: [facility] Start: 06-23-2018 Evaluation and manag ement of inpatient Radha Unger Facility:[facility] Start: 06-16-2018 Patient encounter DALI B SPLAWSKI Fa cility:[id number] Start: 06-05-2018 Patient encounter Mere T Calvin Facility:[id number] Start: 04-14-2018 Patient encounter DALI B SPLAWSKI Fa cility:[id number] Start: 02-17-2018 Patient encounter Mere Solorio Calvin Facility:[id number] Start: 02-10-2018 Patient encounter DALI B SPLAWSKI Fa cility:[id number] Start: 12-16-2017 Patient encounter DALI B SPLAWSKI Fa cility:[id number] Start: 10-14-2017 Patient encounter DALI B SPLAWSKI Fa cility:[id number] Start: 09-28-2017 Patient encounter Mere T Calvin Facility:[id number] Start: 08-25-2017 Patient encounter DALI B SPLAWSKI Fa cility:[facility] Start: 08-09-2017 End: 08-24-2017 Evaluation and management of inpatient AIMEE Hope LOVE Facility:[facility] Procedures Date Procedure Procedure Detail Performing Clinician Start: 07-14-2023 X-ray of right knee Services [facility] [employer] Phone: Start: 06-16-2023 X-ray of right knee Services [facility] [employer] Phone: Start: 06-02-2023 X-ray of right knee Services [facility] [employer] Phone: Start: 05-25-2023 Arthroscopy of knee Services [facility] [employer] Phone: Start: 03-15-2023 Respiratory Panel (PCR) Services [facility] [employer] Phone: Start: 01-06-2023 Computed tomography of abdomen and pelvis with contrast Services [facility] [employer] Phone: Start: 01-06-2023 Plain chest X-ray Services [facility] [employer] Phone: Start: 01-06-2023 Pelvis X-ray Services [facility] [employer] Phone: Start: 01-02-2023 Urine culture Services [facility] [employer] Phone: Start: 12-31-2022 Influenza A and B virus antigen assay Services [facility] [employer] Phone: Start: 12-31-2022 Urine culture Services [facility] [employer] Phone: Start: 11-02-2022 Urine culture Services [facility] [employer] Phone: Start: 10-31-2022 Urine culture Services [facility] [employer] Phone: Start: 08-19-2022 Computed tomography of abdomen and pelvis with contrast Services [facility] [employer] Phone: Start: 06-09-2022 Esophagogastroduodenoscopy Services [facility] [employer] Work Phone: Start: 05-16-2022 Computed tomography of abdomen and pelvis with contrast Services [facility] [employer] Phone: Start: 08-21-2017 Introduction of Nutritional Substance [...] [facility] Work Phone: Services Family [employer] [facility] Work Phone: Plan of Treatment Date Care Activity Detail Author Start: 03-18-2024 [facility] Start: 05-25-2023 [facility] Start: 05-25-2023 [facility] Start: 01-08-2023 Blood chemistry [facility] Start: 01-08-2023 [facility] Start: 01-07-2023 Blood chemistry [facility] Start: 01-07-2023 End: 01-07-2023 [facility] Start: 01-06-2023 Patient referral to dietitian [facility] Start: 01-06-2023 Hospital admission [facility] Start: 01-06-2023 [facility] Start: 01-06-2023 Computed tomography of abdomen and pelvis with contrast [facility] Start: 01-06-2023 CT Abdomen and Pelvis W contrast IV [facility] Start: 01-06-2023 End: 01-06-2023 [facility] Start: 01-06-2023 Urine culture [facility] Start: 12-31-2022 End: 12-31-2022 [facility] Start: 11-09-2022 [facility] Start: 10-29-2022 [facility] Start: 08-22-2022 [facility] Start: 08-22-2022 [facility] Work Phone: Start: 08-20-2022 Hospital admission [facility] Start: 08-20-2022 [facility] Work Phone: Start: 08-20-2022 [facility] Work Phone: Start: 08-19-2022 Computed tomography of abdomen and pelvis with contrast CT abdomen pelvis w con [facility] Start: 08-19-2022 CT Abdomen and Pelvis W contrast IV [facility] Work Phone: Start: 08-19-2022 [facility] Work Phone: Start: 07-29-2022 Influenza vaccination INFLUENZA (Season Ended) [facility] Start: 06-09-2022 [facility] Work Phone: Start: 2022 CHLAMYDIA SCREENING (18-24) CHLAMYDIA SCREENING (18-24) [facility] Start: 2022 GC (GONORRHEA) SCREENING (18-24) GC (GONORRHEA) SCREENING (18-24) [facility] Start: 2022 HEPATITIS C SCREENING HEPATITIS C SCREENING [facility] Start: 2022 HIV SCREENING HIV SCREENING [facility] Start: 2020 MENINGOCOCCAL CONJUGATE (1 - 2-dose series) MENINGOCOCCAL CONJUGATE (1 - 2-dose series) [facility] Start: 2018 PEDS TO ADULT TRANSITION ANNUAL ASSESSMENT PEDS TO ADULT TRANSITION ANNUAL ASSESSMENT [facility] Start: 2016 Adult depression screening assessment DEPRESSION SCREENING [facility] Start: 2016 PEDS TO ADULT TRANSITION INITIAL DISCUSSION PEDS TO ADULT TRANSITION INITIAL DISCUSSION [facility] Start: 2015 HPV VACCINE (1 - 2-dose series) HPV VACCINE (1 - 2-dose series) [facility] Start: 2014 MENINGOCOCCAL B: Consider based on risk (1 of 2 - Risk Bexsero 2-dose series) MENINGOCOCCAL B: Consider based on risk (1 of 2 - Risk Bexsero 2-dose series) [facility] Start: 2011 Urine microalbumin profile DTAP,TDAP,TD (1 - Tdap) [facility] Start: 2009 COVID-19 VACCINE (#1) [facility] Amphetamines [Presen ce] in Urine [facility] Work Phone: Bacteria identified in Blood by Culture [facility] Bacteria identified in Urine by Culture [facility] Bacteria identified in Urine by Culture [facility] Barbiturates [Presen ce] in Urine [facility] Work Phone: Benzodiazepines [Pre sence] in Urine [facility] Work Phone: Bilirubin measurement, urine [facility] Work Phone: Cannabinoids [Presen ce] in Urine by Screen method [facility] Work Phone: Choriogonadotropin ( test) [Presence] in Urine [facility] Work Phone: Cocaine [Presence] in Urine [facility] Work Phone: Color of Urine [facility] Work Phone: Detection of hemoglobin [facility] Work Phone: Glucose [Mass/volume ] in Urine by Test strip [facility] Work Phone: Homogenous nuclear A b pattern [Titer] in Serum [facility] Work Phone: Measurement of keton es in urine using dipstick [facility] Work Phone: Nuclear Ab [Titer] in Serum [facility] Work Phone: Patient Education [facility] Work Phone: Patient referral [facility] Work Phone: Phencyclidine [Prese nce] in Urine [facility] Work Phone: Protein measurement, urine [facility] Work Phone: SARS-CoV-2 (COVID-19 ) N gene [Presence] in Respiratory specimen by JANAK with probe detection [facility] Work Phone: Urinalysis, specific gravity measurement [facility] Work Phone: Urine culture Urine Culture [facility] Urine culture [facility] Urine dipstick for nitrite [facility] Work Phone: Urine dipstick for s pecific gravity [facility] Work Phone: Urine pH test [facility] Work Phone: Urobilinogen concent ration, test strip measurement [facility] Work Phone: [facility] Immunizations Immunization Date Immunization Notes Care Provider Susan alvarado 01-17-2018 tetanus toxoid, redu yoni diphtheria toxoid, and acellular pertussis vaccine, adsorbed Services [facility] Work Phone: [facility] 01-07-2017 Human Papillomavirus 9-valent vaccine Colten Olexa Other [employer] [facility] [employer] Other 01-07-2017 HPV, unspecified formulation Services [facility] [employer] Phone: [facility] 09-06-2016 influenza, injectabl e, quadrivalent, preservative free Colten Olexa Other [facility] 09-06-2016 Human Papillomavirus 9-valent vaccine Colten Olexa Other [employer] [facility] Other 09-06-2016 HPV, unspecified formulation Services [facility] Work Phone: [facility] 07-01-2016 human papilloma viru s vaccine, quadrivalent Colten Olexa Other [facility] 07-01-2016 meningococcal polysaccharide (groups A, C, Y and W-135) diphtheria toxoid conjugate vaccine (MCV4P) Colten Olexa Other [facility] 07-01-2016 tetanus toxoid, redu yoni diphtheria toxoid, and acellular pertussis vaccine, adsorbed Colten Olexa Other [facility] 09-01-2015 influenza, injectabl e, quadrivalent, preservative free Colten Olexa Other [facility] 08-19-2014 influenza, injectabl e, quadrivalent, contains preservative Services [employer] Work Phone: [facility] 08-19-2014 influenza, injectabl e, quadrivalent, preservative free Colten Olexa Other [employer] [facility] [employer] Other 08-17-2013 influenza, seasonal, injectable, preservative free Colten Olexa Other [facility] Payers Date Payer Category Payer Self-pay 2019 [facility] [id number] 2019-Present [phone] [address] [place] [address] Medicaid [id number] 2004 Unknown [id number] 2004 Unknown [id number] 1969 Unknown [id number] 1969 Unknown [id number] 1959 Medicaid [id number] Medicaid [id number] Medicaid [id number] Unknown [id number] Unknown [id number] Unknown [id number] Unknown [id number] Unknown [id number] Unknown [id number] Unknown [id number] Unknown [id number] Unknown [id number] Unknown [id number] Unknown [id number] Social History Date Type Detail Facility Start: 10-09-2021 End: 03-13-2024 Tobacco smoking status [facility] Never smoked tobacco [facility] Start: 10-09-2021 Tobacco use and exposure Smokeless tobacco non-user [facility] Start: 10-09-2021 Alcohol intake Lifetime non-d isael (finding) [facility] Start: 10-09-2021 History SDOH Alcohol Frequency 1 [facility] Start: 2004 Sex Assigned At Not on file C [facility] Start: 06-09-2022 End: 03-18-2024 Tobacco smoking status DEIS Smoker (finding) [facility] Start: 2004 Sex Assigned At Female F [facility] Start: 08-18-2022 End: 05-25-2023 Tobacco smoking status DEIS Current some day smoker [facility] Start: 01-06-2023 Tobacco smoking stat us DEIS Ex-smoker (finding) [facility] Sex Assigned At [facility] Tobacco smoking status Never Maxine [facility] Medical Equipment Procedure Code Equipment Code Equipment Origin al Text Equipment Identifier Dates Arthroscopy, knee Tendon/ligamen t bone anchor, non-bioabsorbable ()[id number] FDA Start: 05-25-2023 Arthroscopy, knee Soft-tissue/me sh anchor, non-bioabsorbable [id number] FDA Start: 05-25-2023 Arthroscopy, knee Tendon/ligamen t bone anchor, bioabsorbable ()[id number] FDA Start: 05-25-2023 Goals Date Patient Goal Desired Activity /State Functional Status Date Assessment Result Facility 03-15-2024 Functional Status N/A [facility] 03-13-2024 Functional Status N/A [facility] 01-07-2023 Functional status Patient at Baseline [facility] Work Phone: 01-06-2023 Functional status Patient at Baseline [facility] Work Phone: 08-22-2022 Functional status Patient at Baseline [facility] Work Phone: Mental Status Date Assessment Result Facility 01-07-2023 Cognitive function Patient at Baseline [facility] Work Phone: 01-06-2023 Cognitive function Patient at Baseline [facility] Work Phone: 08-22-2022 Cognitive function Patient at Baseline [facility] Work Phone: Clinical Notes 09-28-2015 to 03-15-2024 [...] provider. Do not use recreational drugs. Take dgqv-hbf-efflulc and prescription medicines only as told by [...] provider. Document Revised: 06/08/2022 Document Reviewed: 06/08/2022 [employer] Patient Education 2022 [employer]. 03/15/2024 13:49:41 Nausea and Vomiting, Adult Nausea [...] water added (diluted fruit juice). Eat bland, wdge-tu-vwvjat foods in small amounts as you are able. These foods include bananas, applesauce, rice, lean meats, toast, and crackers. Avoid fluids that contain a lot of sugar or caffeine, such as energy drinks, sports drinks, and soda. Avoid alcohol. Avoid spicy or fatty foods. General instructions Take cxuq-fzw-xqzugmu and prescription medicines only as told by your health care provider. Drink enough fluid to keep your urine pale yellow. Wash your hands often using soap and water for at least 20 seconds. If soap and water are not available, use hand internal communications specialist. Make sure that everyone in your household [...] eating and drinking to prevent dehydration. Take jbmq-hdm-gnluxxw and prescription medicines only as told by [...] provider. Document Revised: 05/21/2022 Document Reviewed: 05/21/2022 Donews Patient Education 2022 [employer]. Follow Up Care 03/15/2024 10:34:05 With:Kirk Serrano Address:Unknown When:03/22/2024 13:33:04 Comments:Make sure to follow-up with Dr. Serrano at the surgery clinic in 1 week as instructed. Return to the emergency room if you develop chest pain, shortness of breath or any symptoms. [facility] 03-15-2024 Evaluation + Plan note Extrac venkata [...] CT Chest w/ Contrast eGFR Magnesium Level [facility]04-17-2024 Hospital Discharge instructions Patient Education 03/13/2024 22:27:59 Nausea and Vomiting, Adult, Jtlp-eo-Exzm Nausea and Vomiting, Adult Nausea is feeling [...] fruit juice). ?Low-calorie sports drinks. Eat bland, ikei-ol-bkbmrt foods in small amounts as you are able, such as: ?Bananas. ?Applesauce. ?Rice. ?Low-fat (lean) meats. ?[place]. ?Crackers. Avoid drinking fluids that have a lot of sugar or caffeine in them. This includes energy drinks, sports drinks, and soda. Avoid alcohol. Avoid spicy or fatty foods. General instructions Take hoqp-iqm-bxlkxjj and prescription medicines only as told by your doctor. Drink enough fluid to keep your pee (urine) pale yellow. Wash your hands often with soap and water for at least 20 seconds. If you cannot use soap and water, use hand internal communications specialist. Make sure that everyone in your home [...] your doctor about eating and drinking. Take xukh-ssw-hzojlln and prescription medicines only as told by your doctor. Contact your doctor if your symptoms get worse or you have new symptoms. Keep all follow-up visits. This information is not intended to replace advice given to you by your health care provider. Make sure you discuss any questions you have with your health care provider. Document Revised: 05/21/2022 Document Reviewed: 05/21/2022 Donews Patient Education 2022 [employer]. 03/13/2024 22:27:59 Muscle Strain, Iofb-mc-Pdtm Muscle Strain A muscle strain, or pulled [...] is not too tight. General instructions Take naya-smo-hjneiei and prescription medicines only as told by [...] provider. Document Revised: 02/01/2022 Document Reviewed: 02/01/2022 Elsevier Patient Education 2022 [employer]ode. Follow Up Care 03/13/2024 17:33:30 With:MODESTA ARCHIBALD Address: [address] [place] [address] [phone] Business (1) When:03/16/2024 Comments:You can use the medications as prescribed as needed for pain, nausea. Please follow-up with your primary care doctor for further evaluation and management. Please return to the ED if you develop chest pain, difficulty breathing or if any concerning signs or symptoms. [facility]04-16-2024 Evaluation + Plan noteExtracted from: Title:ED Note [...] day(s), # 9 tab(s), Refills(s) 0, [id number], 160, cm, 03/13/24 17:38:00 EDT, Height/Length Dosing, 95.5, kg, 03/13/24 17:38:00 EDT, Weight Dosing morphine, 4 mg = 1 mL, Injection, IV Push, Once, Stop date 03/13/24 19:50:00 EDT, STAT, Start date 03/13/24 19:50:00 EDT, 03/13/24 19:50:00 EDT naproxen, 500 mg = 1 tab(s), Oral, BID, PRN for pain, # 20 tab(s), Refills(s) 0, Pharmacy: [facility]/pharmacy #[id number], 160, cm, 03/13/24 17:38:00 EDT, Height/Length Dosing, 95.5, kg, 03/13/24 17:38:00 EDT, Weight Dosing orphenadrine, 60 mg = 2 mL, Injection, IV Push, Once, Stop date 03/13/24 20:27:00 EDT, STAT, Start date 03/13/24 20:27:00 EDT, 03/13/24 20:27:00 EDT promethazine, 25 mg = 1 supp, Rectal, q6hr, PRN Nausea/Vomiting, # 6 EA, Refills(s) 0, [id number], 160, cm, 03/13/24 17:38:00 EDT, Height/Length [...] kg, 2.06, m2 XR Chest 2 Views [facility]07-06-2023 Evaluation note* Encounter Date Diagnosis Assessment Notes [...] Other specified postprocedural states (ICD-10 - Z98.890) [facility] Other 06-27-2023 Evaluation note* Encounter Date Diagnosis Assessment Notes Treatment Notes Treatment Clinical Notes Apr, Other specified postprocedural states (ICD-10 - Z98.890) [facility] Other 06-26-2023 Evaluation note* Encounter Date Diagnosis [...] pain for many months and potentially cause intermediate frame tender pain and stiffness. We have discussed the many potential complications of surgery including respiratory, cardiac, and patient positioning during anesthesia. The risks of DVT, scarring, alf pain, non union, hardware failure, development of [...] S82.111A) Apr, Pre-op exam (ICD-10 - Z01.818) [facility] Other 02-10-2023 History and physical note Author Eliana Bautista [facility] January 07, 2023 2:11am Note Date/Time January 06, 2023 5 :30pm [facility] [address] [place] [address] Hospitalist H&P Signed Patient: Pili Parikh MR#: [id number] : 2005 Acct:[id number] Age/Sex: 17 / F Adm Date: 3 Loc: Room: [address] [place] [address] Type: ADM INOo Attending Dr: Eliana Bautista MD Copies to: [facility] FRANKY Starkey MD~ HPI DATE OF [...] unless noted in the HPI or below [facility]LY [facility], [facility] Attestation Statement: The following information was validated [...] promethazine 25 mg rectal suppository 25 mg OK Q6H PRN Nausea #10 supp 01/02/23 [Rx [...] % (Auto) 19.9 % (.) 01/06/23 14:20 [place] % (Auto) 7.4 % (.) 01/06/23 14:20 Eos % (Auto) 2.3 % (.) 01/06/23 14:20 Baso % (Auto) 0.3 % (.) 01/06/23 14:20 Nucleat RBC Rel Count 0.1 /100 WBC (0-0.5) 01/06/23 14:20 Neut # (Auto) 12.4 x10E3/uL (1.2-7.7) H 01/06/23 14:20 Lymph # (Auto) 3.5 x10E3/uL (1.20-4.8) 01/06/23 14:20 [place] # (Auto) 1.3 x10E3/uL (0.1-1.00) H 01/06/23 [...] pH 6.5 (5.0-9.0) 01/06/23 16:10 Ur Specific [place] 1.027 (1.001-1.030) 01/06/23 16:10 Urine Protein 100 [...] MD Documented By: Anette Stout APRN 01/06/23 1653 Signed By: <Electronically signed by FRANKY Stout> 01/06/23 1817 <Electronically signed by Eliana Bautista MD> 01/07/23 0213 [facility] Work Phone: 1(143) 725-739809-24-2022 Progress note Author Gregorio Carey [facility] August 21, 2022 5:01pm Note Date/Time August 21, 2022 5:01pm [facility] [address] [place] [address] Hospitalist Progress Note Signed Patient: Pili Parikh MR#: [id number] : 2005 Acct:[id number] Age/Sex: 17 / F Adm Date: 2 Loc: Room: [address] [place] [address] Type: ADM IN Attending Dr: Gregorio Carey [...] alot of discomfort. She recalls that the trimmer operator three knife told her that in warm water against [...] 1 Gm/10 Ml Udc PO 08/22/23 06:59 TID.AC.[facility] A&P - Hospitalist Assessment/Plan (1) Intractable nausea [...] the morning. Documented By: Gregorio Carey DO 1655 Signed By: <Electronically signed by Gregorio Carey DO> 08/21/[address] [facility] Work Phone: 1(712) 139-474009-23-2022 History and physical note Author Gregorio Carey [facility] August 20, 2022 8:17pm Note Date/Time August 20, 2022 8:17pm [facility] [address] [place] [address] Hospitalist H&P Signed Patient: Pili Parikh MR#: [id number] : 2005 Acct:[id number] Age/Sex: 17 / F Adm Date: 2 Loc: Room: [address] [place] [address] Type: ADM IN Attending Dr: Gregorio Carey DO Copies to: [facility] Senior Gregorio L Chanduleelee, ~ HPI DATE OF EXAMINATION: 08/20/22 CHIEF COMPLAINT: [...] % (Auto) 11.5 % (.) 08/20/22 16:21 [place] % (Auto) 3.7 % (.) 08/20/22 16:21 Eos % (Auto) 0.3 % (.) 08/20/22 16:21 Baso % (Auto) 0.4 % (.) 08/20/22 16: Neut # (Auto) 9.2 x10E3/uL (1.2-7.7) H 08/20/22 16:21 Lymph # (Auto) 1.3 x10E3/uL (1.20-4.8) 08/20/22 16:21 [place] # (Auto) 0.4 x10E3/uL (0.1-1.00) 08/20/22 16:21 [...] <Electronically signed by Gregorio Carey DO> 08/20/222016 [facility] Work Phone: [phone]) 792-996306-19-2022 Miscellaneous Notes* Telephone Encounter - Luana Mak [...] if she can find a way to [facility], she will go there. Reason for Disposition Chest pain [1] Chest pain lasts > 5 minutes AND [2] described as crushing, pressure-like, or heavy Protocols used: ABDOMINAL PAIN - GHHTC-WZBHD-ZS, CHEST JGQM-UDUOE-OB [facility]12-[facility]-2021 NoteHNO ID: [id number] Author: Rolando Wooten MD Service: ? Author [...] completed when applicable. PROCEDURE NOTE: IANDD right SMELLER Risks, benefits, personnel and alternatives were explained. The patient wished to proceed. S/he was re-identified and a time out obtained. PROCEDURE drainage right SMELLER PREOPERATIVE DIAGNOSIS: right peritonsillar abscess POSTOPERATIVE DIAGNOSIS tonsillitis without pus in right peritonsillar area INDICATIONS: chronic right throat pain, worsening, concern for right SMELLER at outside facility on scan . Drainage [...] there were no complication. MD Rolando Cherry, [facility]11-12-2021 NoteHNO ID: [id number] Author: Rolando Wooten MD Service: ? Author Type: Physician Type: Progress Notes Filed: 11/13/2021 1:09 AM Note Text: [facility] Consult This consult was requested by [...] tonsillitis. Today she has (more content not included)...[facility]11-01-2015 History general Narrative - Reported* Type Description Date Medical History wheezing in bell person Medical History intermittent asthma Medical History lactose intolerance Medical History POTS diag 09/2015 Surgical History appendectomy 2018 Hospitalization History strepthroat, uri, dehydr ation, otitis media 2004 Hospitalization History dehydtation 2006 [place] [facility] [place]- Hospitalization History 3 days vomitting blood 0 01/2017 Hospitalization History vomiting, abd pain, dehy dration [facility] [place] Hospitalization History RBC 08/14 [facility] Other Evaluation noteNo assessment information available [facility] Work Phone: Evaluation note* Diagnosis Onset Date Resolution Status Nausea & vomiting acute [facility] Work Phone: Evaluation note* Diagnosis Onset Date Resolution Status Dehydration acute Hypokalemia acute Intractable nausea and vomiting acute Nausea & vomiting acute [facility] Work Phone: Evaluation note* Diagnosis Onset Date Resolution Status Abdominal pain acute Acute hypokalemia acute Chest pain acute Dehydration acute Hypokalemia acute Hypovolemia acute Bever[place]-C[place] tear acute Nausea & vomiting acute [facility] Work Phone: History and physical note Author Eliana Bautista [facility] January 07, 2023 2:11am Note Date/Time January 06, 2023 5 :30pm [facility] [address] [place] [address] Hospitalist H&P Signed Patient: Pili Parikh MR#: [id number] : 2005 Acct:[id number] Age/Sex: 17 / F Adm Date: 3 Loc: Room: [address] [place] [address] Type: ADM INOo Attending Dr: Eliana Bautista MD Copies to: [facility] FRANKY Starkey MD~ HPI DATE OF [...] unless noted in the HPI or below FOR[facility]LY [facility], [facility] Attestation Statement: The following information was validated [...] promethazine 25 mg rectal suppository 25 mg OK Q6H PRN Nausea #10 supp 01/02/23 [Rx [...] % (Auto) 19.9 % (.) 01/06/23 14:20 [place] % (Auto) 7.4 % (.) 01/06/23 14:20 Eos % (Auto) 2.3 % (.) 01/06/23 14:20 Baso % (Auto) 0.3 % (.) 01/06/23 14:20 Nucleat RBC Rel Count 0.1 /100 WBC (0-0.5) 01/06/23 14:20 Neut # (Auto) 12.4 x10E3/uL (1.2-7.7) H 01/06/23 14:20 Lymph # (Auto) 3.5 x10E3/uL (1.20-4.8) 01/06/23 14:20 [place] # (Auto) 1.3 x10E3/uL (0.1-1.00) H 01/06/23 [...] pH 6.5 (5.0-9.0) 01/06/23 16:10 Ur Specific [place] 1.027 (1.001-1.030) 01/06/23 16:10 Urine Protein 100 [...] signed by Eliana Bautista MD> 01/07/23 0211 [facility] Work Phone: Hospital course Narrative No data available for this section [facility] Work Phone: Hospital Discharge instructions Additional Instructions Follow-up with your primary care doctor Return to ED if develop worsening symptoms or [facility] Work Phone: Hospital Discharge instructions Additional Instructions Follow-up with your primary care doctor Return to the ED if you develop worsening symptoms or [facility] Work Phone: Hospital Discharge instructions Additional Instructions Take Phenergan as prescribed for nausea vomiting. Take Motrin and Tylenol as needed for muscle aches and pains. Take Carafate as prescribed.[facility] Work Phone: Hospital Discharge instructions Additional Instructions [...] you should first call your surgeon at [phone] for advice. If your are unable to contact your surgeon, seek help from a hospital emergency room. [facility] Work Phone: Progress note No data available for this section [facility] Summary Purpose Family History No Family History Records Found Relationship Condition Age at Onset Recorded Date/T marvin Not Specified Depression Unknown father Depression Unknown father Malignant neoplasm of kidney Unknown father Diabetes mellitus Unknown Not Specified Anxiety Unknown Not Specified Fibromyalgia Unknown Not Specified Epilepsy Unknown Not Specified Malignant neoplasm of cervix Unknown Relationship Condition Age at Onset Recorded Date/T marvin Not Specified Depression Unknown father Depression Unknown father Malignant neoplasm of kidney Unknown father Diabetes mellitus Unknown Not Specified Anxiety Unknown Not Specified Fibromyalgia Unknown Not Specified Epilepsy Unknown Not Specified Malignant neoplasm of cervix Unknown family member Malignant neoplasm of cervix Unknown Malignant neoplasm Unknown grandparent Hypertension Unknown Not Specified Malignant neoplasm Unknown Advance Directives No Advanced Directives Records [...] s82.111d S82.111D stomach and chest pain vomitting Chief Complaint Chest Pain, N/V Additional Source Comments INFORMATION SOURCE (unrecogn ized section and content) DATE CREATED AUTHOR 06/05/2018 [employer] DATE CREATED AUTHOR AUTHOR'S ORGANIZ ATION 07/14/2018 [facility] DATE CREATED AUTHOR AUTHOR'S ORGANIZ ATION 01/04/2022 [facility] DATE CREATED AUTHOR AUTHOR'S ORGANIZ ATION 02/02/2023 [facility] DATE CREATED AUTHOR AUTHOR'S ORGANIZ ATION 03/30/2024 [facility] DATE CREATED AUTHOR AUTHOR'S ORGANIZ ATION 04/21/2024 Christophe Cruz [facility] Source Comments (unrecognize d section and content) In the event this informatio n is protected by the Federal Confidentiality of Alcohol and Drug Abuse Patient Records regulations: The Federal rules restrict any use of the information to criminally investigate or prosecute any alcohol or drug abuse patient.[facility] Reason for Visit (unrecogniz ed section and content) Reason Comments Abdominal Pain Care Teams (unrecognized sec tion and content) Team Status: Inactive Member Role Status [facility] Primary Care Provider ZAMZAM BishopC Attending Provide r Active Team Status: Inactive Member Role Status [facility] Primary Care Provider Active MILY Taylor Attending Provide r Active Team Status: Inactive Member Role Status [facility] Primary Care Provider Active Brennen Britt MD Attending Provider Active Team Status: Inactive Member Role Status [facility] Primary Care Provider Active Art Bianchi DO Emergency Provider Active Team Status: Inactive Member Role Status [facility] Primary Care Provider Active Chika Thompson DO Emergency Provider Active Team Status: Inactive Member Role Status [facility] Primary Care Provider Active Ender Donovan DO Emergency Provider Active Team Status: Inactive Member Role Status [facility] Primary Care Provider Active Gilson Castro , DO Emergency Provider Active Team Status: Active Member Role Status [facility] Primary Care Provider Ac tive Team Status: Inactive Member Role Status [facility] [facility] Primary Care Provider Ac latesha Rivera APRN Emergency Provider Active Team Status: Inactive Member Role Status Dates [facility] Primary Care Provider Ac tive Colten Fry Jr, MD Emergency Provider Active Team Status: Inactive Member Role Status Dates Services [facility] Primary Care Provider Ac lulve Gilson Castro , DO Emergency Provider Active Team Status: Active Member Role Status Dates Services [facility] Primary Care Provider Ac lulve Gilson Castro , DO Emergency Provider Active Gregorio Carey , DO Admit Provider, Attending Pr ovider Active Team Status: Inactive Member Role Status [employer] Primary Care Provider Ac lulve Gilson Castro , DO Emergency Provider Active Gregorio Carey , DO Admit Provider, Attending Pr ovider Active Team Status: Inactive Member Role Status Dates Services [facility] Primary Care Provider Ac tive Chika Thompson , DO Emergency Provider Active Team Status: Inactive Member Role Status Dates Art Bianchi , DO Emergency Provider Active Services [facility] Primary Care Provider Ac tive Team Status: Inactive Member Role Status [facility] Services [facility] Primary Care Provider Ac latesha Henley , DO Emergency Provider Active Team Status: Inactive Member Role Status [facility] Services [facility] Primary Care Provider Ac lulve Art Bianchi , DO Emergency Provider Active Team Status: Inactive Member Role Status [facility] Services [facility] Primary Care Provider Active Dixon Newberry MD Emergency Provider Active Team Status: Active Member Role Status [facility] Services [facility] Primary Care Provider Active Team Status: Inactive Member Role Status [facility] Services [facility] Primary Care Provider Active Federico Randolph , DO Emergency Provider Active Team Status: Active Member Role Status [employer] [facility] Primary Care Provider Active Rd Brown PA-C Emergency Provider Active Eliana Bautista MD Admit Provider, Attending Provider Active Team Status: Inactive Member Role Status Dates Services [facility] Primary Care Provider Active Rd Brown PA-C Emergency Provider Active Eliana Bautista MD Admit Provider, Attending Provider Active Team Status: Inactive Member Role Status Dates [facility] Primary Care Provider Active Colten Miller MD Attending Provider Active Team Status: Inactive Member Role Status Dates [facility] Primary Care Provider Active Start: March 18, 2024 End: March 19, 2024 Jacinto Benitez MD Emergency Provider Active Star t: March 18, 2024 End: March 19, 2024 Goals (unrecognized section and content) Goals may be documented in a n alternate sectionNo InformationNo InformationNo Information No data available for this section No data available for this sectionGoals may be documented in an alternate section FOR RECORDS PERTAINING TO PATIENTS WHO [...] BE BASED ON THE PRIMARY CLINICAL RECORDS. [facility]. provides no warranty or guarantee of the accuracy or completeness of information in this document.
--- NOTE | 2024-07-30 11:35 | XR_ITS ---
The [address] [address] Patient Name: PILI SEGURA MRN: [id number] date: 2005 Sex: F Assigned Patient Location: ER Current Patient Location: ER Accession/Order Number: [id number] Exam Date: 07/30/2024 11:50 Report Date: 07/30/2024 12:07 At the request of: IRWIN LONG Procedure: XR chest 1V EXAM: XR chest 1V HISTORY: . pain . COMPARISON: 09/08/2023 TECHNIQUE: Single view of the chest FINDINGS: R2 and vascularity are unremarkable. Lungs are free of focal infiltrates. Grossly no acute bony abnormality is appreciated. XR/XR chest 1V IMPRESSION: No acute heart or lung disease identified. Electronically authenticated by: MELIDA CHRISTOPHER Date: 07/30/2024 12:07
[2024-07-30] MEDS: 0.9 % SODIUM CHLORIDE 1,000 ML 1000 ML IV (11:42)
[2024-07-30] MEDS: PROMETHAZINE HCL 25 MG in 0.9 % SODIUM CHLORIDE 50 ML 204 MG IV (11:44)
[2024-07-30] MEDS: FAMOTIDINE/PF 20 MG/2 ML VIAL IV (11:46)
[2024-07-30 11:54] LABS: Basophils Percent Auto 0.2 % (0.2-2.0); Eosinophils Percent Auto 0.1 % (0.9-7.0); Hemoglobin 14.7 g/dL (12.0-16.0); Immature Granulocytes Pct Auto 0.5 % (0.0-0.5); Lymphocytes Absolute Auto 1.5 10^3/uL (1.2-3.8); Lymphocytes Percent Auto 7.6 % (20.5-60.0); Mean Corpuscular HGB Conc 33.4 g/dL (29.9-35.2); Mean Corpuscular Hemoglobin 28.8 pg (26.7-34.0); Mean Corpuscular Volume 86.1 fL (81.0-99.0); Mean Platelet Volume 10.5 fL (9.5-13.5); Monocytes Percent Auto 4.9 % (1.7-12.0); Neutrophils Absolute Auto 17.4 10^3/uL (1.4-6.5); Neutrophils Percent Auto 86.7 % (43.0-75.0); Platelet Count 335 10^3/uL (150-450); Red Blood Count 5.11 10^6/uL (4.20-5.40); Red Cell Distribution Width 12.9 % (11.0-15.0)
[2024-07-30 11:56] LABS: Alanine Aminotransferase 72 U/L (14-59); Albumin Globulin Ratio 1.3; Albumin Level 4.8 g/dL (3.4-5.0); Alkaline Phosphatase 96 U/L (46-116); Anion Gap 20.3; Aspartate Amino Transferase 27 U/L (15-37); BUN Creatinine Ratio 19.4; Bilirubin Total 0.8 mg/dL (0.2-1.0); Calcium 10.3 mg/dL (8.5-10.1); Carbon Dioxide 22.4 mmol/L (21.0-32.0); Chloride 100 mmol/L (98-107); Estimated GFR (African America >60 (>=60); Estimated GFR (Non-African Ame >60 (>=60); Globulin 3.7 g/dL; Glucose 143 mg/dL (74-106); Potassium 3.7 mmol/L (3.5-5.1); Sodium 139 mmol/L (136-145); Total Protein 8.5 g/dL (6.4-8.2)
[2024-07-30 11:57] LABS: HCG Qualitative NEGATIVE (NEGATIVE); Internal Control Within Normal Limits
[2024-07-30] MEDS: KETOROLAC TROMETHAMINE 30 MG/ML VIAL 15 MG IVP (12:19)
[2024-07-30 12:22] VITALS: BP 151/84
[2024-07-30 12:31] VITALS: BP 139/105
[2024-07-30 13:01] VITALS: BP 149/93
--- NOTE | 2024-07-30 13:42 | ED_ITS ---
HPI - Abdominal Pain General Chief Complaint: Abdominal Pain Stated Complaint: chest pain vomiting Time Seen by Provider: 07/30/24 11:30 Source: patient Mode of arrival: walk-in History of Present Illness HPI narrative: The patient presenting to us with a symptoms of nausea vomiting and chest pain, the patient is very well-known to us she usually present with cyclic vomiting symptoms, upon presentation the patient mentioned that she does not want a CAT scan to be done she just wants IV fluid and IV medication There was no specific tenderness there was only pain all over her chest as well as all over her abdomen No blood in vomiting and the patient still using marijuana Related Data Home Medications ?Medication ?Instructions ?Recorded ?Confirmed methocarbamol 500 mg tablet 500 mg PO TID 03/18/24 03/18/24 naproxen 500 mg tablet 500 mg PO BID PRN pain 03/18/24 03/18/24 ondansetron 4 mg disintegrating 4 mg translingual Q8H 07/19/24 07/19/24 tablet Previous Rx's ?Medication ?Instructions ?Recorded promethazine 25 mg rectal 25 mg FL Q6H PRN nausea and 03/13/24 suppository vomiting #12 ea promethazine 25 mg tablet 25 mg PO Q6H PRN nausea and 03/13/24 vomiting #20 tabs vkbpqpspfs-rvzysbdhixapb-rnyejsbe 1 cap PO Q6H PRN pain 5 days #20 07/19/24 50 mg-300 mg-40 mg capsule caps (Fioricet) dicyclomine 20 mg tablet 20 mg PO QID PRN abdominal pain 07/30/24 #14 tabs promethazine 25 mg tablet 25 mg PO TID PRN nausea and 07/30/24 vomiting #10 tabs Allergies Allergy/AdvReac Type Severity Reaction Status Date / Time haloperidol [From Haldol] Allergy Severe icthy Verified 07/19/24 10:58 metoclopramide [From Reglan] AdvReac Intermediate facial Verified 01/05/24 11:56 drooping Review of Systems ROS Status of ROS 10 or more systems reviewed and unremark able except as noted in history and below [facility] Medical History (Updated 07/30/24 @ 13:02 by Zohreh Mosquera MD) Leukocytosis ?D72.829 - Elevated white blood cell count, unspecified (ICD-10) Bipolar 1 disorder ?F31.9 - Bipolar disorder, unspecified (ICD-10) Migraine ?G43.909 - Migraine, unspecified, not intractable, without status migrainosus (ICD-10) POTS (postural orthostatic tachycardia syndrome) ?G90.A - Postural orthostatic tachycardia syndrome [POTS] (ICD-10) Cyclic vomiting syndrome ?R11.15 - Cyclical vomiting syndrome unrelated to migraine (ICD-10) Cyclic vomiting syndrome ?R11.15 - Cyclical vomiting syndrome unrelated to migraine (ICD-10) Fall ?W19.XXXA - Unspecified fall, initial encounter (ICD-10) Fracture of tibial plateau ?S82.143A - Displaced bicondylar fracture of unspecified tibia, initial encounter for closed fracture (ICD-10) Surgical History History of appendectomy ?Z90.49 - Acquired absence of other specified parts of digestive tract (ICD- 10) Family History Father Family history of stroke Family history of diabetes mellitus Family history of cancer Family history of hypertension Family history of CHF (congestive heart failure) Grandfather Family history of stroke Grandmother Family history of myocardial infarction Mother Family history of diabetes mellitus Family history of cancer Social History Within the past year, how often did you have a drink containing alcohol: never Score interpretation: A score less than 3 is consistent with normal alcohol consumption. Smoking status: Current every day smoker Non-prescribed substance use: cannabis (any form) Do you think of yourself as: straight/heterosexual Gender Identity: female Exam Narrative Exam Narrative: Nurses notes and vital signs reviewed and patient is not hypoxic. General: Well-appearing and in no apparent distress. Skin: Warm, dry, no pallor noted. No rash. Head: Normocephalic, atraumatic. Neck: Supple, non-tender. Eye: Pupils are equal, round and EOMI. No scleral icterus. Ears, Nose, Mouth, and Throat: TM are clear, no nasal mucosal hypertrophy. Oral mucosa is moist, no posterior oropharynx erythema, uvula is mid-line Cardiovascular: Regular Rate and Rhythm without murmur, gallop or rub. Respiratory: No accessory muscle use or respiratory distress. Lungs are clear to auscultation, no wheezing, rales or rhonchi Chest Wall: no tenderness Back: No midline thoracic or lumbar vertebral tenderness. No CVA tenderness Musculoskeletal: normal ROM, no calf or popliteal tenderness, no lower extremity edema/swelling GI: Abdomen is soft, non-distended. Normal bowel sounds. No masses appreciated. No tenderness to palpation. No rebound, guarding, or rigidity noted. Neurological: A&O x4. No cranial nerve dysfunction observed. No truncal ataxia. Moves all extremities. Sensation intact. Psychiatric: Cooperative and interactive. Normal mood and affect. Constitutional Vital Signs, click to edit/add: Last Vital Signs Temp 98.1 F 07/30/24 11:18 Pulse 71 07/30/24 11:18 Resp 18 07/30/24 11:18 BP 149/93 H 07/30/24 13:01 Pulse Ox 98 07/30/24 11:22 Course Vital Signs Vital signs: Vital Signs Temperature 98.1 F 07/30/24 11:18 Pulse Rate 71 07/30/24 11:18 Respiratory Rate 18 07/30/24 11:18 Blood Pressure 165/101 H 07/30/24 11:18 Pulse Oximetry 100 07/30/24 11:18 Temperature 98.1 F 07/30/24 11:18 Pulse Rate 71 07/30/24 11:18 Respiratory Rate 18 07/30/24 11:18 Blood Pressure 149/93 H 07/30/24 13:01 Pulse Oximetry 98 07/30/24 11:22 MDM - Abdominal Pain MDM Narrative Medical decision making narrative: The patient chest x-ray showed no acute pathology The patient CBC showing leukocytosis of 20 although the patient does have a history of leukocytosis and previous visits the patient chemistry showed no acute significant pathology Right now the patient was treated with IV fluid as well as Phenergan after which she was feeling better I did explain to the patient right now that she have a white blood cell that is elevated and that could be secondary to another intra-abdominal pathology but she is refusing CAT scan saying that it would not show anything, although I did explain to her that we would be missing infection diagnoses that can affect her life but the patient does not want a CAT scan to be done and she was feeling better and she wants to be discharged Patient signed AMA regarding the CAT scan refusal she was provided with Phenergan pills as well as Bentyl The patient is to follow up with primary care physician in next 2-3 days or to return to the emergency department should any of the signs or symptoms worsen or new symptoms develop. The patient agrees with the following Diagnosis and Treatment plan and the patient will be discharged home. Lab Data Labs: Lab Results 07/30/24 Range/Units 11:28 WBC 20.0 H (4.0-11.0) 10^3/uL RBC 5.11 (4.20-5.40) 10^6/uL Hgb 14.7 (12.0-16.0) g/dL Hct 44.0 (36.0-48.0) % MCV 86.1 (81.0-99.0) fL MCH 28.8 (26.7-34.0) pg MCHC 33.4 (29.9-35.2) g/dL RDW 12.9 (11.0-15.0) % Plt Count 335 (150-450) 10^3/uL MPV 10.5 (9.5-13.5) fL Neut % (Auto) 86.7 H (43.0-75.0) % Lymph % (Auto) 7.6 L (20.5-60.0) % [place] % (Auto) 4.9 (1.7-12.0) % Eos % (Auto) 0.1 L (0.9-7.0) % Baso % (Auto) 0.2 (0.2-2.0) % Neut # (Auto) 17.4 H (1.4-6.5) 10^3/uL Lymph # (Auto) 1.5 (1.2-3.8) 10^3/uL [place] # (Auto) 1.0 H (0.3-0.8) 10^3/uL Eos # (Auto) 0.0 (0.0-0.7) 10^3/uL Baso # (Auto) 0.0 (0.0-0.1) 10^3/uL Abs Immat Gran (auto) 0.10 H (0.00-0.03) 10^3/uL Imm/Tot Granulo (auto) 0.5 (0.0-0.5) % Sodium 139 (136-145) mmol/L Potassium 3.7 (3.5-5.1) mmol/L Chloride 100 (98-107) mmol/L Carbon Dioxide 22.4 (21.0-32.0) mmol/L Anion Gap 20.3 BUN 18.0 (7.0-18.0) mg/dL Creatinine 0.93 (0.55-1.02) mg/dL Est GFR ( Amer) >60 (>=60) Est GFR (Non-Af Amer) >60 (>=60) BUN/Creatinine Ratio 19.4 Glucose 143 H (74-106) mg/dL Calcium 10.3 H (8.5-10.1) mg/dL Total Bilirubin 0.8 (0.2-1.0) mg/dL AST 27 (15-37) U/L ALT 72 H (14-59) U/L Alkaline Phosphatase 96 (46-116) U/L Total Protein 8.5 H (6.4-8.2) g/dL Albumin 4.8 (3.4-5.0) g/dL Globulin 3.7 g/dL Albumin/Globulin Ratio 1.3 Serum HCG, Qual Negative (NEGATIVE) Discharge Plan Discharge Stand Alone Forms: Work/School Release, Portal Instructions Chief Complaint: Abdominal Pain Clinical Impression: Cyclical vomiting Patient Disposition: Left Against Medical Advice Time of Disposition Decision: 13:02 Condition: Good Prescriptions / Home Meds: New dicyclomine 20 mg tablet 20 mg PO QID PRN (Reason: abdominal pain) Qty: 14 0RF promethazine 25 mg tablet 25 mg PO TID PRN (Reason: nausea and vomiting) Qty: 10 0RF No Action ondansetron 4 mg tablet,disintegrating 4 mg translingual Q8H jfxdzgcorf-pdcsarggklpid-brln [Fioricet] 50-300-40 mg capsule 1 cap PO Q6H PRN (Reason: pain) 5 Days Qty: 20 0RF promethazine 25 mg tablet 25 mg PO Q6H PRN (Reason: nausea and vomiting) Qty: 20 0RF promethazine 25 mg suppository 25 mg FL Q6H PRN (Reason: nausea and vomiting) Qty: 12 0RF methocarbamol 500 mg tablet 500 mg PO TID naproxen 500 mg tablet 500 mg PO BID PRN (Reason: pain) Print Language: Welsh Instructions: Acute Nausea and Vomiting (DC) Referrals: ANTOINETTE BROOKS [Physician] - 1 week Modesta Chand [employer]CH[employer]ICIAN [Primary Care Provider] - 1 week Discharge Date/Time: 07/30/24 13:23
== END 2024-07-30 13:23 | disposition left against medical advice (07) ==
PROVIDERS: Emergency Provider Emergency Medicine; PCP Nurse Practitioner Family
DX: R11.15 Cyclical vomiting syndrome unrelated to migraine (principal); F12.90 Cannabis use, unspecified, uncomplicated; F17.200 Nicotine dependence, unspecified, uncomplicated; Z53.29 Procedure and treatment not carried out because of patient's decision for other reasons
CPT/HCPCS: 36415; 71045; 80053; 84703; 85025; 96361; 96365; 96375; 99284; J1885; J2250

== ENCOUNTER 2024-07-31 10:50 | Emergency (ER) | payer OTHER, SELFPAY ==
[2024-07-31] VITALS (9 sets, daily range): BP systolic 162; BP diastolic 96; PULSE 52–60; TEMP 36.7; O2SAT 100; BMI 36.3
--- NOTE | 2024-07-31 10:57 | ECG_ITS ---
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
[2024-07-31] MEDS: KETOROLAC TROMETHAMINE 30 MG/ML VIAL 15 MG IVP (11:37)
[2024-07-31] MEDS: DICYCLOMINE HCL 20 MG/2 ML VIAL IM (11:37)
[2024-07-31] MEDS: DIPHENHYDRAMINE HCL 50 MG/ML VIAL IV (11:37)
[2024-07-31] MEDS: FAMOTIDINE/PF 20 MG/2 ML VIAL IV (11:37)
--- NOTE | 2024-07-31 12:00 | ED_ITS ---
HPI HPI - General Adult General Chief complaint: Nausea/Vomiting/Diarrhea Stated complaint: VOMITING BLOOD Time Seen by Provider: 07/31/24 11:09 Source: patient Mode of arrival: ambulance History of Present Illness HPI narrative: The patient is very well-known to us she have a history of cyclic vomiting, and she just signed AMA yesterday and left before because she did not want anything other than IV fluids and medication to feel better before going home, the patient is coming today after she did not refill the medication that she was provided with yesterday and came over here with the same symptoms of nausea and vomiting and epigastric pain She mentioned that sometimes she have blood in vomiting no other complaints of abdominal pain at the moment more than her usual pain all over the abdomen No changes in bowel movement Related Data Home Medications ?Medication ?Instructions ?Recorded ?Confirmed methocarbamol 500 mg tablet 500 mg PO TID 03/18/24 03/18/24 naproxen 500 mg tablet 500 mg PO BID PRN pain 03/18/24 03/18/24 ondansetron 4 mg disintegrating 4 mg translingual Q8H 07/19/24 07/19/24 tablet Previous Rx's ?Medication ?Instructions ?Recorded promethazine 25 mg rectal 25 mg DE Q6H PRN nausea and 03/13/24 suppository vomiting #12 ea promethazine 25 mg tablet 25 mg PO Q6H PRN nausea and 03/13/24 vomiting #20 tabs aihhiteaap-xhvomsnvacink-pmqxipfn 1 cap PO Q6H PRN pain 5 days #20 07/19/24 50 mg-300 mg-40 mg capsule caps (Fioricet) dicyclomine 20 mg tablet 20 mg PO QID PRN abdominal pain 07/30/24 #14 tabs promethazine 25 mg tablet 25 mg PO TID PRN nausea and 07/30/24 vomiting #10 tabs Allergies Allergy/AdvReac Type Severity Reaction Status Date / Time haloperidol [From Haldol] Allergy Severe icthy Verified 07/19/24 10:58 metoclopramide [From Reglan] AdvReac Intermediate facial Verified 01/05/24 11:56 drooping Opioid HPI Opioid Management Most Recent Opioid Data: Last Pain Scale 8 07/30/24 12:19 Ur Phencyclidine Scrn Negative (NEGATIVE) 09/05/23 21:10 Review of Systems ROS Status of ROS 10 or more systems reviewed and unremark able except as noted in history and below [facility] Medical History (Updated 07/31/24 @ 12:06 by Zohreh Mosquera MD) Leukocytosis ?D72.829 - Elevated white blood cell count, unspecified (ICD-10) Bipolar 1 disorder ?F31.9 - Bipolar disorder, unspecified (ICD-10) Migraine ?G43.909 - Migraine, unspecified, not intractable, without status migrainosus (ICD-10) POTS (postural orthostatic tachycardia syndrome) ?G90.A - Postural orthostatic tachycardia syndrome [POTS] (ICD-10) Cyclic vomiting syndrome ?R11.15 - Cyclical vomiting syndrome unrelated to migraine (ICD-10) Cyclic vomiting syndrome ?R11.15 - Cyclical vomiting syndrome unrelated to migraine (ICD-10) Fall ?W19.XXXA - Unspecified fall, initial encounter (ICD-10) Fracture of tibial plateau ?S82.143A - Displaced bicondylar fracture of unspecified tibia, initial encounter for closed fracture (ICD-10) Surgical History History of appendectomy ?Z90.49 - Acquired absence of other specified parts of digestive tract (ICD- 10) Family History Father Family history of stroke Family history of diabetes mellitus Family history of cancer Family history of hypertension Family history of CHF (congestive heart failure) Grandfather Family history of stroke Grandmother Family history of myocardial infarction Mother Family history of diabetes mellitus Family history of cancer Social History Within the past year, how often did you have a drink containing alcohol: never Score interpretation: A score less than 3 is consistent with normal alcohol consumption. Smoking status: Current every day smoker Non-prescribed substance use: cannabis (any form) Do you think of yourself as: straight/heterosexual Gender Identity: female Exam Narrative Exam Narrative: Nurses notes and vital signs reviewed and patient is not hypoxic. General: Well-appearing and in no apparent distress. Skin: Warm, dry, no pallor noted. No rash. Head: Normocephalic, atraumatic. Neck: Supple, non-tender. Eye: Pupils are equal, round and EOMI. No scleral icterus. Ears, Nose, Mouth, and Throat: TM are clear, no nasal mucosal hypertrophy. Oral mucosa is moist, no posterior oropharynx erythema, uvula is mid-line Cardiovascular: Regular Rate and Rhythm without murmur, gallop or rub. Respiratory: No accessory muscle use or respiratory distress. Lungs are clear to auscultation, no wheezing, rales or rhonchi Chest Wall: no tenderness Back: No midline thoracic or lumbar vertebral tenderness. No CVA tenderness Musculoskeletal: normal ROM, no calf or popliteal tenderness, no lower extremity edema/swelling GI: Abdomen is soft, non-distended. Normal bowel sounds. No masses appreciated. No tenderness to palpation. No rebound, guarding, or rigidity noted. Neurological: A&O x4. No cranial nerve dysfunction observed. No truncal ataxia. Moves all extremities. Sensation intact. Psychiatric: Cooperative and interactive. Normal mood and affect. Constitutional Vital Signs, click to edit/add: Last Vital Signs Temp 98.0 F 07/31/24 10:57 Pulse 53 L 07/31/24 10:57 Resp 18 07/31/24 10:57 BP 162/96 H 07/31/24 10:57 Pulse Ox 100 07/31/24 10:57 O2 Del Method Room Air 07/31/24 10:57 Course Vital Signs Vital signs: Vital Signs Temperature 98.0 F 07/31/24 10:57 Pulse Rate 53 L 07/31/24 10:57 Respiratory Rate 18 07/31/24 10:57 Blood Pressure 162/96 H 07/31/24 10:57 Pulse Oximetry 100 07/31/24 10:57 Oxygen Delivery Method Room Air 07/31/24 10:57 Temperature 98.0 F 07/31/24 10:57 Pulse Rate 53 L 07/31/24 10:57 Respiratory Rate 18 07/31/24 10:57 Blood Pressure 162/96 H 07/31/24 10:57 Pulse Oximetry 100 07/31/24 10:57 Oxygen Delivery Method Room Air 07/31/24 10:57 Medical Decision Making MDM Narrative Medical decision making narrative: Patient provided with the IV fluids initially with IV access established was started on Benadryl as well as Toradol and Bentyl The patient did not fill the medication that she was provided with yesterday and she also left AMA yesterday after she was given the IV fluid While awaiting the workup to be established the patient decided just that she just want to leave, the patient noted that by leaving she is putting her life at risk in case of missing any diagnosis, patient is adamant to leave and she signed AMA Discharge Plan Discharge Stand Alone Forms: Work/School Release, Portal Instructions Chief Complaint: Nausea/Vomiting/Diarrhea Clinical Impression: Cyclical vomiting Patient Disposition: Left Against Medical Advice Time of Disposition Decision: 12:05 Condition: Good Mode of Transportation: Private Vehicle Prescriptions / Home Meds: No Action ondansetron 4 mg tablet,disintegrating 4 mg translingual Q8H zjtrvrejzw-chszewydvjoav-mtnk [Fioricet] 50-300-40 mg capsule 1 cap PO Q6H PRN (Reason: pain) 5 Days Qty: 20 0RF promethazine 25 mg tablet 25 mg PO Q6H PRN (Reason: nausea and vomiting) Qty: 20 0RF promethazine 25 mg suppository 25 mg DE Q6H PRN (Reason: nausea and vomiting) Qty: 12 0RF methocarbamol 500 mg tablet 500 mg PO TID naproxen 500 mg tablet 500 mg PO BID PRN (Reason: pain) dicyclomine 20 mg tablet 20 mg PO QID PRN (Reason: abdominal pain) Qty: 14 0RF promethazine 25 mg tablet 25 mg PO TID PRN (Reason: nausea and vomiting) Qty: 10 0RF Print Language: [place] Citizen Referrals: Modesta Chand [employer] TECHNICIAN [Primary Care Provider] - 1 week Discharge Date/Time: 07/31/24 12:06
== END 2024-07-31 12:07 | disposition left against medical advice (07) ==
PROVIDERS: Emergency Provider Emergency Medicine; PCP Nurse Practitioner Family
DX: R11.15 Cyclical vomiting syndrome unrelated to migraine (principal); F17.200 Nicotine dependence, unspecified, uncomplicated
CPT/HCPCS: 36415; 80053; 83735; 93005; 96372; 96374; 96375; 99284; J0500; J1200; J1885

== ENCOUNTER 2024-09-21 14:01 | Emergency (ER) | payer OTHER, SELFPAY ==
[2024-09-21 14:04] VITALS: BP 133/82; PULSE 75; TEMP 36.7; O2SAT 99; BMI 34.8
[2024-09-21 14:31] LABS: HCG Qualitative Urine* NEGATIVE (NEGATIVE); Internal Control Within Normal Limits
[2024-09-21 14:47] LABS: Bilirubin Urine NEGATIVE (NEGATIVE); Blood Urine NEGATIVE (NEGATIVE); Clarity Urine CLEAR (CLEAR); Color Urine YELLOW (YELLOW); Glucose Urine UA NEGATIVE (NEGATIVE); Ketones Urine NEGATIVE (NEGATIVE); Leukocyte Esterase Urine NEGATIVE (NEGATIVE); Nitrite Urine NEGATIVE (NEGATIVE); Protein Urine TRACE mg/dL (NEG/TRACE); Specific Gravity Urine 1.025 (1.005-1.025); Urobilinogen Urine 0.2 EU/dL (0.2-1.0)
[2024-09-21 14:51] LABS: Urine Microscopic Indicated NO
[2024-09-21] MEDS: KETOROLAC TROMETHAMINE 60 MG/2 ML VIAL IM (14:51)
[2024-09-21] MEDS: ONDANSETRON 4 MG RAPDIS TABLET SL (14:52)
--- NOTE | 2024-09-21 15:06 | ED_ITS ---
HPI HPI - General Adult General Chief complaint: Urogenital-Female Stated complaint: UTI COMPLAINTS Time Seen by Provider: 09/21/24 14:11 Source: patient Mode of arrival: walk-in Limitations: no limitations History of Present Illness HPI narrative: 19-year-old female presents here with chief complaint of lower lumbar pain and increased frequency and burning with urination. Denies a known history of . She states she has had some nausea but does have a history of abdominal issues. She states her symptoms have been going on for approximately 1 week. She did not know if she had musculoskeletal pain versus a UTI. Patient denies any vaginal discomfort or discharge. She also complains of left ear pain. Otherwise healthy. Related Data Home Medications ?Medication ?Instructions ?Recorded ?Confirmed ondansetron 4 mg disintegrating 4 mg translingual Q8H 07/19/24 09/21/24 tablet Previous Rx's ?Medication ?Instructions ?Recorded promethazine 25 mg rectal 25 mg MA Q6H PRN nausea and 03/13/24 suppository vomiting #12 ea dicyclomine 20 mg tablet 20 mg PO QID PRN abdominal pain 07/30/24 #14 tabs promethazine 25 mg tablet 25 mg PO TID PRN nausea and 07/30/24 vomiting #10 tabs cephalexin 500 mg capsule 500 mg PO BID 10 days #20 caps 09/21/24 phenazopyridine 200 mg tablet 200 mg PO Q8H 6 doses #6 tabs 09/21/24 (Pyridium) Allergies Allergy/AdvReac Type Severity Reaction Status Date / Time haloperidol (From Haldol) Allergy Severe icthy Verified 07/19/24 10:58 metoclopramide (From Reglan) AdvReac Intermediate facial Verified 01/05/24 11:56 drooping Opioid HPI Opioid Management Most Recent Opioid Data: Last Pain Scale 6 09/21/24 14:51 09/21/24 Last MAR Pain Assessment 09/21/24 14:51 Ur Phencyclidine Scrn Negative (NEGATIVE) 09/05/23 21:10 10/08/20 Review of Systems ROS Narrative All Systems are negative except as noted/marked.All systems reviewed and otherwise negative [facility] History (Updated 09/21/24 @ 15:11 by Amira Resendez) Leukocytosis ?D72.829 - Elevated white blood cell count, unspecified (ICD-10) Bipolar 1 disorder ?F31.9 - Bipolar disorder, unspecified (ICD-10) Migraine ?G43.909 - Migraine, unspecified, not intractable, without status migrainosus (ICD-10) POTS (postural orthostatic tachycardia syndrome) ?G90.A - Postural orthostatic tachycardia syndrome [POTS] (ICD-10) Cyclic vomiting syndrome ?R11.15 - Cyclical vomiting syndrome unrelated to migraine (ICD-10) Cyclic vomiting syndrome ?R11.15 - Cyclical vomiting syndrome unrelated to migraine (ICD-10) Fall ?W19.XXXA - Unspecified fall, initial encounter (ICD-10) Fracture of tibial plateau ?S82.143A - Displaced bicondylar fracture of unspecified tibia, initial encounter for closed fracture (ICD-10) Surgical History History of appendectomy ?Z90.49 - Acquired absence of other specified parts of digestive tract (ICD- 10) Family History Father Family history of stroke Family history of diabetes mellitus Family history of cancer Family history of hypertension Family history of CHF (congestive heart failure) Grandfather Family history of stroke Grandmother Family history of myocardial infarction Mother Family history of diabetes mellitus Family history of cancer Social History Within the past year, how often did you have a drink containing alcohol: never Score interpretation: A score less than 3 is consistent with normal alcohol consumption. Smoking status: Current every day smoker Non-prescribed substance use: cannabis (any form) Do you think of yourself as: straight/heterosexual Gender Identity: female Exam Narrative Exam Narrative: Nurses note and vital signs reviewed and patient is not hypoxic. General: The patient appears well and in no apparent distress. Patient is resting comfortably on cart. Skin: Warm, dry, no pallor noted. There is no rash noted. Head: Normocephalic, atraumatic Eye: Normal conjunctiva, no drainage, EOMI. PERRL Ears, Nose, Mouth, and Throat: oral mucosa is moist. Nares patent. Mouth without vesicles. Ear canals patent. left tm dull, erythematous, left Tm without Erythema Cardiovascular: Regular Rate and Rhythm Respiratory: Patient is in no distress, no accessory muscle use, lungs are clear to auscultation, no wheezing, rales or rhonchi Back: non-tender, no CVA tenderness bilaterally to percussion. GI: Normal bowel sounds, no tenderness to palpation, no masses appreciated. No rebound, guarding, or rigidity noted. Musculoskeletal: The patient has no evidence of calf tenderness, no pitting edema, symmetrical pulses noted bilaterally Neurological: A&O x4, normal speech Psychiatric: Cooperative Constitutional Vital Signs, click to edit/add: Last Vital Signs Temp 98.1 F 09/21/24 14:04 Pulse 75 09/21/24 14:04 Resp 18 09/21/24 14:04 BP 133/82 09/21/24 14:04 Pulse Ox 99 09/21/24 14:04 O2 Del Method Room Air 09/21/24 14:04 Course Vital Signs Vital signs: Vital Signs Temperature 98.1 F 09/21/24 14:04 Pulse Rate 75 09/21/24 14:04 Respiratory Rate 18 09/21/24 14:04 Blood Pressure 133/82 09/21/24 14:04 Pulse Oximetry 99 09/21/24 14:04 Oxygen Delivery Method Room Air 09/21/24 14:04 Temperature 98.1 F 09/21/24 14:04 Pulse Rate 75 09/21/24 14:04 Respiratory Rate 18 09/21/24 14:04 Blood Pressure 133/82 09/21/24 14:04 Pulse Oximetry 99 09/21/24 14:04 Oxygen Delivery Method Room Air 09/21/24 14:04 Medical Decision Making [facility] Narrative Medical decision making narrative: 19-year-old female presenting here chief complaint increased urinary frequency and burning with urination and lower lumbar pain for approximately 1 week. She states she does have a history of lower back issues and did not know if it was her back or had a urinary tract infection. Urinalysis obtained and unremarkable here today. Patient also complained of left ear pain consistent with otitis media on examination. Patient will be placed on Keflex and be given a prescription for Pyridium for urinary frequency. Patient agrees with plan of care will follow-up with primary care physician. Differential Diagnosis Differential Diagnosis: uti, kidney stone, otitis media Medical Records Medical records reviewed: Yes I reviewed the patient's medical records Lab Data Lab results reviewed: Yes I reviewed the patient's lab results Labs: Lab Results 09/21/24 Range/Units 14:15 Urine Color Yellow (YELLOW) Urine Clarity Clear (CLEAR) Urine pH 7.0 (5.0-9.0) Ur Specific [place] 1.025 (1.005-1.025) Urine Protein Trace (NEG/TRACE) mg/dL Urine Glucose (UA) Negative (NEGATIVE) mg/dL Urine Ketones Negative (NEGATIVE) mg/dL Urine Occult Blood Negative (NEGATIVE) Urine Nitrite Negative (NEGATIVE) Urine Bilirubin Negative (NEGATIVE) Urine Urobilinogen 0.2 (0.2-1.0) EU/dL Ur Leukocyte Esterase Negative (NEGATIVE) Urine HCG, Qual Negative (NEGATIVE) Discharge Plan Discharge Chief Complaint: Urogenital-Female Clinical Impression: H/O urinary frequency, Otitis media Patient Disposition: Home, Self-Care Time of Disposition Decision: 15:11 Condition: Good Prescriptions / Home Meds: New cephalexin 500 mg capsule 500 mg PO BID 10 Days Qty: 20 0RF phenazopyridine [Pyridium] 200 mg tablet 200 mg PO Q8H Qty: 6 0RF No Action ondansetron 4 mg tablet,disintegrating 4 mg translingual Q8H promethazine 25 mg suppository 25 mg MA Q6H PRN (Reason: nausea and vomiting) Qty: 12 0RF dicyclomine 20 mg tablet 20 mg PO QID PRN (Reason: abdominal pain) Qty: 14 0RF promethazine 25 mg tablet 25 mg PO TID PRN (Reason: nausea and vomiting) Qty: 10 0RF Print Language: Uzbek Referrals: Modesta Chand [employer] [Primary Care Provider] - 1 week
== END 2024-09-21 15:20 | disposition home or self-care (01) ==
PROVIDERS: Physician Assistant; Emergency Provider Emergency Medicine; PCP Nurse Practitioner Family
DX: R35.0 Frequency of micturition (principal); H66.92 Otitis media, unspecified, left ear
CPT/HCPCS: 81003; 84703; 96372; 99284; J1885; Q0162

== ENCOUNTER 2024-10-25 11:07 | Emergency (ER) | payer OTHER, SELFPAY ==
[2024-10-25 11:12] VITALS: BP 117/69; PULSE 59; TEMP 37.1; O2SAT 97; BMI 34.8
--- NOTE | 2024-10-25 11:26 | ED.NAVMDI1 ---
HPI - Nausea/Vomiting/Diarrhea General Chief complaint: Nausea/Vomiting/Diarrhea Stated complaint: VOMITTING/CHEST PAIN Time Seen by Provider: 10/25/24 11:15 Source: patient Mode of arrival: walk-in Limitations: no limitations History of Present Illness HPI Narrative: 19-year-old female presents for nausea and vomiting of 3 days duration that she states is due to POTS. No diarrhea or fever or hematemesis. She has been to this emergency department numerous times for this issue. Related Data Home Medications ?Medication ?Instructions ?Recorded ?Confirmed ondansetron 4 mg disintegrating 4 mg translingual Q8H 07/19/24 09/21/24 tablet Previous Rx's ?Medication ?Instructions ?Recorded promethazine 25 mg rectal 25 mg MN Q6H PRN nausea and 03/13/24 suppository vomiting #12 ea dicyclomine 20 mg tablet 20 mg PO QID PRN abdominal pain 07/30/24 #14 tabs promethazine 25 mg tablet 25 mg PO TID PRN nausea and 07/30/24 vomiting #10 tabs cephalexin 500 mg capsule 500 mg PO BID 10 days #20 caps 09/21/24 phenazopyridine 200 mg tablet 200 mg PO Q8H 6 doses #6 tabs 09/21/24 (Pyridium) ondansetron 4 mg disintegrating 4 mg PO Q6H PRN nausea and 10/25/24 tablet vomiting #20 tabs Allergies Allergy/AdvReac Type Severity Reaction Status Date / Time haloperidol (From Haldol) Allergy Severe icthy Verified 10/25/24 11:15 metoclopramide (From Reglan) AdvReac Intermediate facial Verified 10/25/24 11:15 drooping Review of Systems ROS Narrative A ten point review of systems is negative except as noted above. [facility] Medical History (Updated 10/25/24 @ 12:49 by Juan C Hernandez MD) Leukocytosis ?D72.829 - Elevated white blood cell count, unspecified (ICD-10) Bipolar 1 disorder ?F31.9 - Bipolar disorder, unspecified (ICD-10) Migraine ?G43.909 - Migraine, unspecified, not intractable, without status migrainosus (ICD-10) POTS (postural orthostatic tachycardia syndrome) ?G90.A - Postural orthostatic tachycardia syndrome [POTS] (ICD-10) Cyclic vomiting syndrome ?R11.15 - Cyclical vomiting syndrome unrelated to migraine (ICD-10) Cyclic vomiting syndrome ?R11.15 - Cyclical vomiting syndrome unrelated to migraine (ICD-10) Fall ?W19.XXXA - Unspecified fall, initial encounter (ICD-10) Fracture of tibial plateau ?S82.143A - Displaced bicondylar fracture of unspecified tibia, initial encounter for closed fracture (ICD-10) Surgical History History of appendectomy ?Z90.49 - Acquired absence of other specified parts of digestive tract (ICD-10) Family History Father Family history of stroke Family history of diabetes mellitus Family history of cancer Family history of hypertension Family history of CHF (congestive heart failure) Grandfather Family history of stroke Grandmother Family history of myocardial infarction Mother Family history of diabetes mellitus Family history of cancer Social History Within the past year, how often did you have a drink containing alcohol: never Score interpretation: A score less than 3 is consistent with normal alcohol consumption. Smoking status: Current every day smoker Non-prescribed substance use: cannabis (any form) Little interest or pleasure in doing things: not at all Feeling down, depressed, or hopeless: not at all Do you think of yourself as: straight/heterosexual Gender Identity: female Exam Narrative Exam Narrative: Nurses note and vital signs reviewed and patient is not hypoxic. General: The patient appears in no apparent distress. Patient is resting comfortably on cart. Skin: Warm, dry, no pallor noted. There is no rash noted. Head: Normocephalic, atraumatic Eye: Normal conjunctiva, no drainage Ears, Nose, Mouth, and Throat: oral mucosa is moist. Nares patent. Cardiovascular: Regular Rate and Rhythm Respiratory: Patient is in no distress, no accessory muscle use, lungs are clear to auscultation, no wheezing, rales or rhonchi Back: non-tender GI: Obese soft and nontender Musculoskeletal: The patient has no evidence of calf tenderness, no pitting edema, symmetrical pulses noted bilaterally Neurological: A&O, normal speech Psychiatric: Cooperative Constitutional Vital Signs, click to edit/add: Last Vital Signs Temp 98.8 F 10/25/24 11:12 Pulse 59 L 10/25/24 11:12 Resp 16 10/25/24 11:12 BP 117/69 10/25/24 11:12 Pulse Ox 97 10/25/24 11:12 O2 Del Method Room Air 10/25/24 11:12 Course Vital Signs Vital signs: Vital Signs Temperature 98.8 F 10/25/24 11:12 Pulse Rate 59 L 10/25/24 11:12 Respiratory Rate 16 10/25/24 11:12 Blood Pressure 117/69 10/25/24 11:12 Pulse Oximetry 97 10/25/24 11:12 Oxygen Delivery Method Room Air 10/25/24 11:12 Temperature 98.8 F 10/25/24 11:12 Pulse Rate 59 L 10/25/24 11:12 Respiratory Rate 16 10/25/24 11:12 Blood Pressure 117/69 10/25/24 11:12 Pulse Oximetry 97 10/25/24 11:12 Oxygen Delivery Method Room Air 10/25/24 11:12 MDM - Nausea/Vomiting/Diarrhea MDM Narrative Medical decision making narrative: Laboratory analysis is negative although she did not provide us a urine specimen. She was given IV fluids and Zofran and feels improved and is able to be discharged home. Treatment diagnosis and follow-up were discussed with the patient. Differential Diagnosis Differential diagnosis: Likely food poisoning, gastroenteritis, dehydration and other (Cyclic vomiting syndrome) Lab Data Attestation: I reviewed the patient's lab results. Labs: Lab Results 10/25/24 Range/Units 11:28 WBC 18.3 H (4.0-11.0) 10^3/uL RBC 5.35 (4.20-5.40) 10^6/uL Hgb 15.4 (12.0-16.0) g/dL Hct 45.3 (36.0-48.0) % MCV 84.7 (81.0-99.0) fL MCH 28.8 (26.7-34.0) pg MCHC 34.0 (29.9-35.2) g/dL RDW 12.7 (11.0-15.0) % Plt Count 332 (150-450) 10^3/uL MPV 10.3 (9.5-13.5) fL Neut % (Auto) 83.2 H (43.0-75.0) % Lymph % (Auto) 9.3 L (20.5-60.0) % [place] % (Auto) 6.6 (1.7-12.0) % Eos % (Auto) 0.1 L (0.9-7.0) % Baso % (Auto) 0.2 (0.2-2.0) % Neut # (Auto) 15.2 H (1.4-6.5) 10^3/uL Lymph # (Auto) 1.7 (1.2-3.8) 10^3/uL [place] # (Auto) 1.2 H (0.3-0.8) 10^3/uL Eos # (Auto) 0.0 (0.0-0.7) 10^3/uL Baso # (Auto) 0.0 (0.0-0.1) 10^3/uL Abs Immat Gran (auto) 0.11 H (0.00-0.03) 10^3/uL Imm/Tot Granulo (auto) 0.6 H (0.0-0.5) % Sodium 140 (136-145) mmol/L Potassium 3.0 L (3.5-5.1) mmol/L Chloride 99 (98-107) mmol/L Carbon Dioxide 22.2 (21.0-32.0) mmol/L Anion Gap 21.8 BUN 32.0 H (7.0-18.0) mg/dL Creatinine 1.27 H (0.55-1.02) mg/dL Est GFR ( Amer) >60 (>=60 mL/min/1.73m^2) Est GFR (Non-Af Amer) 54 L (>=60 mL/min/1.73m^2) BUN/Creatinine Ratio 25.2 Glucose 148 H (74-106) mg/dL Calcium 10.5 H (8.5-10.1) mg/dL Serum HCG, Qual Negative (NEGATIVE) Discharge Plan Discharge Chief Complaint: Nausea/Vomiting/Diarrhea Clinical Impression: Nausea and vomiting Patient Disposition: Home, Self-Care Time of Disposition Decision: 12:49 Condition: Good Mode of Transportation: Private Vehicle Prescriptions / Home Meds: New ondansetron 4 mg tablet,disintegrating 4 mg PO Q6H PRN (Reason: nausea and vomiting) Qty: 20 0RF No Action ondansetron 4 mg tablet,disintegrating 4 mg translingual Q8H cephalexin 500 mg capsule 500 mg PO BID 10 Days Qty: 20 0RF phenazopyridine [Pyridium] 200 mg tablet 200 mg PO Q8H Qty: 6 0RF promethazine 25 mg suppository 25 mg MN Q6H PRN (Reason: nausea and vomiting) Qty: 12 0RF dicyclomine 20 mg tablet 20 mg PO QID PRN (Reason: abdominal pain) Qty: 14 0RF promethazine 25 mg tablet 25 mg PO TID PRN (Reason: nausea and vomiting) Qty: 10 0RF Print Language: Vietnamese Instructions: Acute Nausea and Vomiting (ED) Referrals: Modesta Chand, ASSISTANT FAMILY TEACHER [Primary Care Provider] - 1 week
[2024-10-25 11:36] LABS: Basophils Percent Auto 0.2 % (0.2-2.0); Eosinophils Percent Auto 0.1 % (0.9-7.0); Hematocrit 45.3 % (36.0-48.0); Hemoglobin 15.4 g/dL (12.0-16.0); Immature Granulocytes Abs Auto 0.11 10^3/uL (0.00-0.03); Immature Granulocytes Pct Auto 0.6 % (0.0-0.5); Lymphocytes Absolute Auto 1.7 10^3/uL (1.2-3.8); Lymphocytes Percent Auto 9.3 % (20.5-60.0); Mean Corpuscular Hemoglobin 28.8 pg (26.7-34.0); Mean Corpuscular Volume 84.7 fL (81.0-99.0); Mean Platelet Volume 10.3 fL (9.5-13.5); Monocytes Absolute Auto 1.2 10^3/uL (0.3-0.8); Monocytes Percent Auto 6.6 % (1.7-12.0); Neutrophils Absolute Auto 15.2 10^3/uL (1.4-6.5); Neutrophils Percent Auto 83.2 % (43.0-75.0); Platelet Count 332 10^3/uL (150-450); Red Blood Count 5.35 10^6/uL (4.20-5.40); Red Cell Distribution Width 12.7 % (11.0-15.0); White Blood Count 18.3 10^3/uL (4.0-11.0)
--- OUTSIDE RECORDS SUMMARY | 2024-10-25 11:38 | XMS_ITS | CCD ---
Author Organization [facility] Care Team Providers Care It Quality Analyst Name Role Phone Calvin, Mere T Unavailable [...] Nilay Unavailable Unavailable Unavailable Primary [facility] Primary Care Provider DO Art Bianchi Emergency Provider Donovan, DO Ender J Emergency Provider [phone] Tugisselle, DO VoRavi M Emergency Provider [phone] Matthew DO Gilson Emergency Provider MILY Chand Attending Pr ovider MD Brennen Britt Attending Provider [facility] Prov ider [facility] Primary Care Provider [phone] FARNKY Rivera Emergency Provider MD Colten Fry Jr Emergency Provider DO Matthew Gilson Emergency Provider [phone] Aurelio, DO Gregorio Admit Provider Aurelio DO Gregorio Attending Provider [facility] Prov ider FRANKY Rivera Emergency Provider MD Colten Fry Jr Emergency Provider Matthew DO Gilson Emergency Provider Aurelio DO Gregorio Admit Provider Aurelio, DO Gregorio Attending Provider MILY Chand Attending Pr ovider Tugisselle, DO Rodrigues M Emergency Provider [facility] Prov ider FRANKY Rivera Emergency Provider MD Colten Fry Jr Emergency Provider DO Matthew Gilson Emergency Provider Aurelio, DO Gregorio Admit Provider Aurelio DO Gregorio Attending Provider MILY Chand Attending Pr ovider DO Ravi Arguello Emergency Provider DO Art Bianchi Emergency Provider [phone] DO Robert Henley Emergency Provider [facility] Primary Care Provider MD Corey Newberry Emergency Provider [facility] Primary Care Prov ider DO Federico Randolph Emergency Provider KATE Damian Emergency Provider MD Eliana Bautista Admit Provider [phone] MD Eliana Bautista Attending Provider [phone] SANDRO, DR VU Primary Care Unavailable DALIA ., AUSTIN Admitting Unavailable DALIA ., AUSTIN Attending Unavailable DALIA ., AUSTIN Consulting Unavailable DIAB ., IRWIN Admitting Unavailable ETHAN ., IRWIN Attending Unavailable SANDRO, DR VU Primary Care Unavailable KIA ARVIZU Consulting Unavailable ETHAN ., IRWIN Consulting Unavailable Colten Miller Unavailable [facility] Primary Care Provider MILY Chand Attending Pr ovider MD Colten Miller Attending Provider [facility] Primary Care Provider DO Ravi Arguello Emergency Provider MODESTA ARCHIBALD Primary Care Physician [facility] Primary Care Provider MD Jacinto Benitez Emergency Provider Cresencio Abel Attending Unavailable MODESTA ARCHIBALD Primary Care Unavailable MODESTA ARCHIBALD Primary Care Unavailable August Beck Attending Unavailable MODESTA ARCHIBALD Primary Care Unavailable DO Isaak Francis Attending Unavailable [facility] Primary Care Provider MD Ania Watson Emergency Provider [phone] MODESTA ARCHIBALD Primary Care Unavailable August Beck Attending Unavailable Cresencio Abel Attending Unavailable MODESTA ARCHIBALD Primary Care Unavailable August Beck Attending Unavailable Jacinto Benitez Admitting Unavailable Jacinto Benitez Attending Unavailable [facility] Services Primary Care Unavaila [facility] Primary Care Unavaila ble Ania Watson Admitting Unavailable Ania Watson Attending Unavailable Allergies Allergy Classification Reported Allergen(s) Allergy Type Date of Onset Reaction(s) Facility (11 sources) Haloperidol; Translations: [Haloperidol] Drug Allergy 3 Unknown Reaction, facial droop [facility] (13 sources) Metoclopramide; Translations: [Metoclopramide] Drug Allergy 3 Unknown (qualifier value) [facility] (3 sources) Haloperidol; Translations: [Haldol] Drug Allergy [facility] (3 sources) Iothalamate; Translations: [Reglan] Drug Allergy [facility] Medications Current Medications Medication Drug Class(es) Dates Sig (Normalized) Sig (Original) acetaminophen 325 mg / HYDROcodone bitartrate 5 mg oral tablet (20 sources) Opioid Agonist Start: 03-13-2024 End: 03-16-2024 Waddy 325 mg-5 mg oral tablet 1 tab(s), Oral, q6hr for pain for 3 day(s), 7 tab(s), Refill(s) 0, [facility]/pharmacy #[id number], 160, cm, 03/13/24 17:38:00 EDT, Height/Length [...] tablet by mouth every six hours Hydrocodone-Acetaminophen (Waddy) 5-325 mg tablet Discontinued 1 TAB PO Q6H 6 December 15, 2019 December 31, 2019 1:37pm Start: 12-15-2019 End: 12-31-2019 Start: 04-20-2019 End: 05-05-2019 take 1 tablet by mouth every six hours Hydrocodone-Acetaminophen Discontinued 1 TAB PO Q6H 20 April 20, 2019 May 05, 2019 8:42pm Start: 04-20-2019 End: 05-05-2019 Start: 02-19-2019 End: 03-08-2019 take 1 tablet by mouth twice daily Hydrocodone-Acetaminophen (Waddy) 5-325 mg tablet Discontinued 1 TAB PO Twice daily 6 February 19, 2019 March 08, 2019 3:53pm Start: 02-19-2019 End: 03-08-2019 Comment on above: Take 15 mL by mouth every 8 hours as needed for pain. acetaminophen 325 mg / oxyCODONE hydrochloride 5 mg oral tablet (11 sources) Opioid Agonist Start: 05-25-2023 take 1 tablet by mouth twice daily Oxycodone-Acetam inophen Active 5 - 325 TAB PO 2 times daily May 25, 2023 12:00am Start: 05-24-2023 take 1 tablet by kathe th every four to six hours as needed for pain Percocet 5-325 MG 1 tablet as needed for pain Orally up to every 4-6 hrs for 5 days SANTO: [id number] Apr, Active take 1 tablet by kathe [...] Discontinued 250 MG PO Four times daily 28 February 06, 2022 1:00am March 08, 2022 [...] day(s), # 9 tab(s), Refills(s) 0, Pharmacy: [facility]/pharmacy #[id number], 160, cm, 03/13/24 17:38:00 EDT, Height/Length [...] pain, # 20 tab(s), Refills(s) 0, Pharmacy: [facility]/pharmacy #[id number], 160, cm, 03/13/24 17:38:00 EDT, Height/Length [...] Ondansetron Hcl Discontinued 4 MG PO Q8H 14 September 23, 2020 12:00am January 12, 2021 [...] for 5 days PRN Active promethazine hydrochloride 12.5 mg rectal suppository (20 sources) Phenothiazine Start: 07-30-2024 take 1 tablet by mouth every eight hours as needed for nausea promethazine 12.5 mg oral tablet 12.5 mg = 1 tab(s), Oral, q8hr, PRN as needed for nausea/vomiting, second line, # 10 tab(s), Refills(s) 0, Pharmacy: [facility]/pharmacy #[id number], 157, cm, 07/30/24 19:37:00 EDT, Height/Length Dosing, 96.1, kg, 07/30/24 19:37:00 EDT, Weight Dosing Start Date: 07/30/24 Status: Ordered Start: 07-30-2024 take 12.5 mg rectal route every eight hours as needed for nausea Phenergan 12.5 mg Supp 12.5 mg = 1 supp, Rectal, q8hr, PRN as needed for nausea/vomiting, 3rd line, # 6 EA, Refills(s) 0, Pharmacy: [facility]/pharmacy #[id number], 157, cm, 07/30/24 19:37:00 EDT, Height/Length Dosing, 96.1, kg, 07/30/24 19:37:00 EDT, Weight Dosing Start Date: 07/30/24 Status: Ordered Start: 05-25-2023 take 12.5 mg by mout h three times daily Promethazine Active 12.5 MG PO Three times daily May 25, 2023 8:37am Start: 01-02-2023 Promethazine A ctive 25 MG MT Q6H January 02, 2023 1:00am Start: 12-31-2022 [...] 02-09-2022 End: 03-08-2022 Promethazine Discontinued 25 MG MT Q6H February 09, 2022 12:00am March 08, [...] End: 10-08-2021 Promethazine Discontinued 12 .5 MG MT Once September 30, 2021 12:00am October 08, [...] (Phenergan) 25 mg suppository Discontinued 25 MG MT Q4H May 10, 2019 12:00am September 03, 2019 8:25pm Start: 03-08-2019 End: 03-23-2019 take 25 mg by mouth every four to six hours Promethazine Discontinued 25 MG PO EVERY 4-6 HOURS March 08, 2019 12:00am March 23, 2019 5:49pm Start: 02-13-2018 End: 03-13-2018 Promethazine (Phenergan) 25 mg suppository Discontinued 25 MG MT Q8H February 13, 2018 12:00am March 13, 2018 10:44pm Start: 01-03-2018 End: 10-16-2018 Promethazine Discontinued 25 MG MT Q6H April 23, 2018 6:04pm October 16, [...] 08, 2022 12:00am August 19, 2022 8:05pm Zofran ODT 4 mg Tab-Dis (1 source) Start: 07-30-2024 take 1 tablet by mouth every eight hours as needed for nausea Zofran ODT 4 mg Tab-Dis 4 mg = 1 tab(s), Oral, q8hr, PRN Nausea/Vomiting, # 16 tab(s), Refills(s) 0, Pharmacy: [facility]/pharmacy #[id number], 157, cm, 07/30/24 19:37:00 EDT, Height/Length Dosing, 96.1, kg, 07/30/24 19:37:00 EDT, Weight Dosing Start Date: 07/30/24 Status: Ordered Completed/Discontinued Medications Medication Drug Class(es) Dates Sig (Normalized) Sig (Original) [id number] 200 actuat albuterol 0.09 mg/actuat metered dose [...] tablet Discontinued 1 TAB PO Twice daily 10 06December 15, 2019 1:00am December 31, 2019 1:37pm [...] mg tablet Discontinued 150 MG PO Once April 14, 2021 12:00am May 10, 2021 [...] / neomycin 3.5 mg/ml / polymyxin b [id number] unt/ml otic suspension (20 sources) Aminoglycoside Antibacterial, Polymyxin-class Antibacterial, Corticosteroid Start: 10-31-2017 End: 12-21-2017 Vyriujeu-Hqdpmlcnf-Yw Discontinued 3 DROPS OTIC Three times daily [...] 2018 1:00am January 12, 2021 1:34pm Magnesium (14 sources) Start: 10-03-2017 End: 01-12-2021 take 400 [...] on packaging. metoclopramide 10 mg oral tablet (18 sources) Dopamine-2 Receptor Antagonist Start: 08-20-20 End: 08-22-20 22 take 1 tablet by mouth every six hours Metoclopramide Hcl (Reglan) 10 mg tablet Discontinued 10 MG PO Q6H 5 3 August 20, 2022 12:00am August 22, 2022 2:48pm mirtazapine 15 mg oral tablet (20 sources) Start: 12-11-19 20 End: 01-12-20 21 take 15 mg by mouth once daily Mirtazapine Discontinued 15 MG PO Daily December 11, 2019 1:00am January 12, 2021 1:35pm Ygqxhwyo-Hvn-Lnsqmds Fumarate (Multi Vitamin) 9 mg iron/15 mL Liquid (14 sources) Start: 09-30-20 End: 07-19-20 21 take 1 tablet by mouth once daily Dsfnoxwr-Asg-Mafuqvx Fumarate (Multi Vitamin) 9 mg iron/15 mL Liquid Discontinued 1 TAB PO Daily September 29, 2019 11:00pm July 19, 2021 1:07pm Start: 09-30-2019 End: 07-19-2021 take 1 tablet by mouth once daily Bmyvrcmc-Mvr-Nlbgxwh Fumarate (Multi Vitamin) 9 mg iron/15 mL [...] End: 03-13-2018 Oxymetazoline (Afrin (Oxymetazoline)) 0.05 % [place] Pool,Non-Aerosol Discontinued 2 SPRAY INTRANASAL Q12H December 23, [...] administer with food or milk Prenat.Vits,Noe,Min-Ir on-Folic (14 sources) Start: 02-06-2022 End: 03-08-2022 take 1 tablet by mouth once daily Prenat.Vits,Noe,Min-Iro n-Folic Discontinued 1 TAB PO Daily 60 February 06, 2022 12:00am March 08, 2022 7:15pm Start: 02-06-2022 End: 03-08-2022 take 1 tablet by mouth once daily Prenat.Vits,Noe,Jjh-Fvch-Xenlk Discontin ued 1 TAB PO Daily 60 February 06, 2022 1:00am March 08, 2022 8:15pm Vit No.617-Jmuh-Uvqoj ( Vitamin) 27 mg iron- 800 mcg tablet (14 sources) Start: 06-08-2022 End: 08-18-2022 take 1 tablet by mouth once daily Vit No.212-Nkon-Zhexo ( Vitamin) 27 mg iron- 800 mcg tablet Discontinued 1 TAB PO Daily June 07, 2022 11:00pm August 18, 2022 11:33am Start: 06-08-2022 End: 08-18-2022 take 1 tablet by mouth once daily Vit No.238-Coql-Jjtqz ( Vitamin) 27 mg iron- 800 mcg tablet Discontinued 1 TAB PO Daily June 08, 2022 12:00am August 18, 2022 12:33pm Start: 06-08-2022 take 1 tablet by kathe th once daily Vit No.502-Laub-Cxbli ( Vitamin) 27 mg iron- 800 mcg [...] accident, initial encounter] 11-19-2019 Episodic Esophageal disorders (11 sources) Beverley-Cotton tear; 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] [...] 10-05-2017 Episodic Genitourinary symptoms and ill-defined conditions (14 sources) Dysuria; Translations: [Dysuria] 06-02-2019 Episodic Headache, [...] disorder, single episode, unspecified] Chronic Noninfectious gastroenteritis (20 sources) Gastroenteritis; Translations: [Noninfective gastroenteritis and colitis, unspecified] 01-03-2020 Episodic Nonspecific chest pain (13 sources) Chest pain; Translations: [Chest pain, unspecified] Onset: 4 01-06-2023 Episodic Nutritional deficiencies (1 source) Vitamin [...] , unspecified] Onset: 4 02-09-2022 Episodic Other complications of (1 source) Vomiting of , unspecified; Translations: [Nausea and vomiting during ] 02-09-2022 Episodic Other connective tissue disease (10 sources) Muscle pain; Translations: [Myalgia, unspecified site] 12-31-2022 Episodic Other disorders of stomach and duodenum (16 sources) Nonulcer dyspepsia; 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] 08-22-2022 [...] / K92.0(ICD-10) Onset: 7 Unclassified (1 source) oysterman (current) use of non-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-inflam (NSAID) / [...] [CONTACT W/AND (SUSP) EXPOS COVID-19] Onset: 3 Urinary tract infections (20 sources) Urinary tract infectious disease; Translations: [Urinary tract infection, site not specified] 12-23-2017 Episodic Viral infection (20 sources) Viral disease; Translations: [Viral infection, unspecified] 08-17-2018 Episodic Past or Other Problems Problem Classification Problem Date Documented Da te Episodic/Chronic Nausea and vomiting (20 sources) Adverse reaction to cannabis; Translations: [Nausea with vomiting, unspecified] Onset: 01-01-2023 05-14-2022 Episodic Spondylosis; intervertebral disc disorders; other back problems (1 source) Dorsalgia, unspecified; Translations: [Dorsalgia, unspecified] Onset: 08-25-2017 Episodic Unclassified (1 source) Vomiting, unspecified; Translations: [Vomiting, unspecified] Onset: 08-25-2017 Unclassified (1 source) Tachycardia, unspecified; Translations: [Tachycardia, unspecified] Onset: 08-25-2017 Results Test Name Value Interpretation Reference Range Facility Activated partial thrombopla stin time (aPTT) in platelet poor plasma by coagulation aOrdered By: Ania Watson on 08-03-2024 aPTT Coag (PPP) [Time] 24.7 s Low 25.1-36.5 [facility] Comment on above: A hematocrit value g reater than 55% may lead to inaccurate results in coagulation testing. Patients having hematocrit values >55% require a special collection tube for coagulation studies. Please contact the laboratory at [phone] for redraw instructions. BNP ser/plasOrdered By: Reji Watson on 08-03-2024 Natriuretic peptide B (Bld) [Mass/Vol] 19.0 pg/mL Normal 5-100 [facility] Comment on above: Order Comment: PT WA NTS TO WAIT UNTIL SHE IS TAKEN BACK INTO ER AND THEY START A IV ON HER,KAH, 2099 Result Comment: PERF ORMED BY: [facility] [address] [place] [address] PATHOLOGIST ROTARY ENGINE ASSEMBLER NAY SARKAR M.D. Performed By: #### P TT, CBC, BMP, HS TROP, CK, PT, BNP #### [address] [address] [facility] Basic Metabolic Panelon 09-0 Creatinine Clr Calc Pharmacy 154.09 Normal [facility] Comment on above: Order Comment: PT WA NTS TO WAIT UNTIL SHE IS TAKEN BACK INTO ER AND THEY START A IV ON HER,2099 Result Comment: PERF ORMED BY: [place] [address] PATHOLOGIST ROTARY ENGINE ASSEMBLER NAY SARKAR M.D. Performed By: #### P TT, CBC, BMP, HS TROP, CK, PT, BNP #### [place] [id number] [facility] GFR/1.73 sq M.predicted MDRD (S/P/Bld) [Vol rate/Area] mL/min/{1.73_m2} Normal [facility] Comment on above: Order Comment: PT WA NTS TO WAIT UNTIL SHE IS TAKEN BACK INTO ER AND THEY START A IV ON HER2099 Performed By: #### P TT, CBC, BMP, HS TROP, CK, PT, BNP #### [place] [id number] [facility] Calcium [Mass/volume] in Ser um or PlasmaOrdered By: Ania Watson on 08-03-2024 Calcium [Mass/Vol] 9.6 mg/dL Normal 8.6-10.3 [facility] Comment on above: Order Comment: PT WA NTS TO WAIT UNTIL SHE IS TAKEN BACK INTO ER AND THEY START A IV ON HER2099 Performed By: #### P TT, CBC, BMP, HS TROP, CK, PT, BNP #### [place] [id number] [facility] Carbon dioxide, total [Moles /volume] in Serum or PlasmaOrdered By: Ania Watson on 08-03-2024 CO2 [Moles/Vol] 18.5 mmol/L Low 21.0-31.0 [facility] Comment on above: Order Comment: PT WA NTS TO WAIT UNTIL SHE IS TAKEN BACK INTO ER AND THEY START A IV ON HER,2099 Performed By: #### P TT, CBC, BMP, HS TROP, CK, PT, BNP #### [address] Chloride [Moles/volume] in [place] or PlasmaOrdered By: Ania Watson on 08-03-2024 Chloride [Moles/Vol] 99 mmol/L Normal 98-107 [facility] Comment on above: Order Comment: PT WA NTS TO WAIT UNTIL SHE IS TAKEN BACK INTO ER AND THEY START A IV ON HER,2099 Performed By: #### P TT, CBC, BMP, HS TROP, CK, PT, BNP #### [address] Complete Blood Count Auto Di ffon 08-03-2024 Basophils (Bld) [#/Vol] 0.1 10*3/uL Normal 0.0-0.2 [facility] Comment on above: Order Comment: PT WA NTS TO WAIT UNTIL SHE IS TAKEN BACK INTO ER AND THEY START A IV ON HER,2099 Result Comment: PERF ORMED BY: [place] [address] PATHOLOGIST ROTARY ENGINE ASSEMBLER NAY SARKAR M.D. Performed By: #### C BC, CMP, HCGQUAL #### [facility] [address] [place] [address] Basophils/100 WBC (Bld) 0.4 % Normal . [facility] Comment on above: Order Comment: PT WA NTS TO WAIT UNTIL SHE IS TAKEN BACK INTO ER AND THEY START A IV ON HER,2099 Performed By: #### C BC, CMP, HCGQUAL #### [place] [address] [place] Eosinophils (Bld) [#/Vol] 0.2 10*3/uL Normal 0.0-0.45 [facility] Comment on above: Order Comment: PT WA NTS TO WAIT UNTIL SHE IS TAKEN BACK INTO ER AND THEY START A IV ON HER,2099 Performed By: #### C BC, CMP, HCGQUAL #### [place] [address] [place] Eosinophils/100 WBC (Bld) 0.9 % Normal . [facility] Comment on above: Order Comment: PT WA NTS TO WAIT UNTIL SHE IS TAKEN BACK INTO ER AND THEY START A IV ON HER,, 2099 Performed By: #### C BC, CMP, HCGQUAL #### [address] Erythrocyte distribution width (RBC) [Ratio] 13.2 % Normal 11.9-15.3 [facility] Comment on above: Order Comment: PT WA NTS TO WAIT UNTIL SHE IS TAKEN BACK INTO ER AND THEY START A IV ON HER,2099 Performed By: #### C BC, CMP, HCGQUAL #### [address] Hematocrit (Bld) [Volume fraction] 43.6 % Normal 34.0-46.4 [facility] Comment on above: Order Comment: PT WA NTS TO WAIT UNTIL SHE IS TAKEN BACK INTO ER AND THEY START A IV ON HER,, 2099 Performed By: #### C BC, CMP, HCGQUAL #### [address] Hemoglobin (Bld) [Mass/Vol] 14.8 g/dL Normal 11.8-15.4 [facility] Comment on above: Order Comment: PT WA NTS TO WAIT UNTIL SHE IS TAKEN BACK INTO ER AND THEY START A IV ON HER,, 2099 Performed By: #### C BC, CMP, HCGQUAL #### [place] [address] [place] Lymphocytes (Bld) [#/Vol] 2.5 10*3/uL Normal 1.00-4.8 [facility] Comment on above: Order Comment: PT WA NTS TO WAIT UNTIL SHE IS TAKEN BACK INTO ER AND THEY START A IV ON HER,KAH, 2099 Performed By: #### C BC, CMP, HCGQUAL #### [place] [address] [place] Lymphocytes/100 WBC (Bld) 13.0 % Normal . [facility] Comment on above: Order Comment: PT WA NTS TO WAIT UNTIL SHE IS TAKEN BACK INTO ER AND THEY START A IV ON HER,, 2099 Performed By: #### C BC, CMP, HCGQUAL #### [address] MCH (RBC) [Entitic mass] 28.4 pg Normal 24.7-34.3 [facility] Comment on above: Order Comment: PT WA NTS TO WAIT UNTIL SHE IS TAKEN BACK INTO ER AND THEY START A IV ON HER,, 2099 Performed By: #### C BC, CMP, HCGQUAL #### [address] MCV (RBC) [Entitic vol] 83.8 fL Normal 80-100 [facility] Comment on above: Order Comment: PT WA NTS TO WAIT UNTIL SHE IS TAKEN BACK INTO ER AND THEY START A IV ON HER,, 2099 Performed By: #### C BC, CMP, HCGQUAL #### [address] Mean Corpuscular HGB Conc 33.9 g/dL Normal 32.0-35.0 [facility] Comment on above: Order Comment: PT WA NTS TO WAIT UNTIL SHE IS TAKEN BACK INTO ER AND THEY START A IV ON HER,, 2099 Performed By: #### C BC, CMP, HCGQUAL #### [address] Monocytes (Bld) [#/Vol] 1.6 10*3/uL High 0.0-0.8 [facility] Comment on above: Order Comment: PT WA NTS TO WAIT UNTIL SHE IS TAKEN BACK INTO ER AND THEY START A IV ON HER,, 2099 Performed By: #### C BC, CMP, HCGQUAL #### [address] Monocytes/100 WBC (Bld) 18.96 % Normal 0.00-20.00 [facility] Comment on above: Order Comment: PT WA NTS TO WAIT UNTIL SHE IS TAKEN BACK INTO ER AND THEY START A IV ON HER,, 2099 Performed By: #### C BC, CMP, HCGQUAL #### [place] [address] [place] Monocytes/100 WBC (Bld) 8.1 % Normal . [facility] Comment on above: Order Comment: PT WA NTS TO WAIT UNTIL SHE IS TAKEN BACK INTO ER AND THEY START A IV ON HER,KAH, 2100 Performed By: #### C BC, CMP, HCGQUAL #### [place] [address] [place] Neutrophils (Bld) [#/Vol] 15.0 10*3/uL High 1.8-7.7 [facility] Comment on above: Order Comment: PT WA NTS TO WAIT UNTIL SHE IS TAKEN BACK INTO ER AND THEY START A IV ON HER,, 2099 Performed By: #### C BC, CMP, HCGQUAL #### [address] Neutrophils/100 WBC (Bld) 77.6 % Normal . [facility] Comment on above: Order Comment: PT WA NTS TO WAIT UNTIL SHE IS TAKEN BACK INTO ER AND THEY START A IV ON HER,, 2099 Performed By: #### C BC, CMP, HCGQUAL #### [place] [address] [place] NRBC% 0.3 /100{WBC} Normal 0-0.5 [facility] Comment on above: Order Comment: PT WA NTS TO WAIT UNTIL SHE IS TAKEN BACK INTO ER AND THEY START A IV ON HER,, 2099 Performed By: #### C BC, CMP, HCGQUAL #### [address] Platelet mean volume (Bld) [Entitic vol] 8.6 fL Normal 6.3-10.7 [facility] Comment on above: Order Comment: PT WA NTS TO WAIT UNTIL SHE IS TAKEN BACK INTO ER AND THEY START A IV ON HER,KAH, 2099 Performed By: #### C BC, CMP, HCGQUAL #### [place] [address] [place] Platelets (Bld) [#/Vol] 282 10*3/uL Normal 150-450 [facility] Comment on above: Order Comment: PT WA NTS TO WAIT UNTIL SHE IS TAKEN BACK INTO ER AND THEY START A IV ON HER,2099 Performed By: #### C BC, CMP, HCGQUAL #### [facility] [address] RBC (Bld) [#/Vol] 5.20 10*6/uL High 3.60-5.00 [facility] Comment on above: Order Comment: PT WA NTS TO WAIT UNTIL SHE IS TAKEN BACK INTO ER AND THEY START A IV ON HER,, 2099 Performed By: #### C BC, CMP, HCGQUAL #### [address] WBC (Bld) [#/Vol] 19.4 10*3/uL High 3.8-11.6 [facility] Comment on above: Order Comment: PT WA NTS TO WAIT UNTIL SHE IS TAKEN BACK INTO ER AND THEY START A IV ON HER,, 2099 Performed By: #### C BC, CMP, HCGQUAL #### [address] Creatine kinase [Enzymatic a ctivity/volume] in Serum or PlasmaOrdered By: Ania Watson on 08-03-2024 CK [Catalytic activity/Vol] 33 U/L Normal 30-223 [facility] Comment on above: Order Comment: PT WA NTS TO WAIT UNTIL SHE IS TAKEN BACK INTO ER AND THEY START A IV ON HER,2099 Performed By: #### P TT, CBC, BMP, HS TROP, CK, PT, BNP #### [address] Creatinine [Mass/volume] in Serum or PlasmaOrdered By: Ania Watson on 08-03-2024 Creatinine [Mass/Vol] 0.61 mg/dL Normal 0.60-1.20 [facility] Comment on above: Order Comment: PT WA NTS TO WAIT UNTIL SHE IS TAKEN BACK INTO ER AND THEY START A IV ON HER,2099 Performed By: #### P TT, CBC, BMP, HS TROP, CK, PT, BNP #### [facility] [address] [place] [id number] [facility] ECG 12 lead ECGon 08-03-2024 ECG 12 lead ECG [facility] Main [place] [address] [place] [address] Electrocardiograph Report Signed Patient: Pili Parikh MR#: [id number] 1526 : 2005 Acct:[id number] Age/Sex: 19 / F ADM Date: 08/03/24 Loc: ER Room: Type: [facility] ER Attending Dr: Ordering Provider: Ania Watson MD Date of Service: 08/03/2405/21/2034 ECG/ECG 12 lead ECG: Chest Pain Copies to: Test Reason : Blood Pressure : */* mmHG Vent. Rate : 89 BPM Atrial Rate : 89 BPM P-R Int : 140 ms QRS Dur : 80 ms QT Int : 364 ms P-R-T Axes : 63 37 57 degrees QTcB Int : 442 ms Normal sinus rhythm regular axis Nonspecific T wave abnormality Confirmed by Ania Watson MD ([id number]) on 08/04/2024 1:34:37 AM Referred By: Electronically Signed By: Ania Watson MD Transcribed By: MUS Signed By Ania Watson MD 06/20 0134 Normal [facility] Glucose [Mass/volume] in Ser um or PlasmaOrdered By: Ania Watson on 08-03-2024 Glucose [Mass/Vol] 91 mg/dL Normal 70-100 [facility] Comment on above: ADA recommended refe rence rangeRandom Glucose Reference Range is dependent on time and content of last meal. Glucose of more than 200 mg/dL in a nonstressed, ambulatory subject supports the diagnosis of Diabetes Mellitus. Order Comment: PT WA NTS TO WAIT UNTIL SHE IS TAKEN BACK INTO ER AND THEY START A IV ON HER,KAH, 2099 Result Comment: [place] om Glucose Reference Range is dependent on time and content of last meal. Glucose of more than 200 mg/dL in a nonstressed, ambulatory subject supports the diagnosis of Diabetes Mellitus. ADA recommended reference range Performed By: #### P TT, CBC, BMP, HS TROP, CK, PT, BNP #### [facility] [address] [place] [address] [facility] INR in Platelet poor plasma by Coagulation assayOrdered By: Ania Watson on 08-03-2024 INR Coag (PPP) [Relative time] 1.2 {INR} Normal [facility] Comment on above: INR Therapeutic Rang e A) Pre- and Peroperative OAT started two weeks before surgery. NOT HIP SURGERY: 1.5 - 2.5 HIP SURGERY: 2 - 3B) Primary and secondary prevention of venous THROMBOSIS: 2 - 3C) Active venous thrombosis, pulmonary embolismand prevention of recurrent venous thrombosis: 2 - 3D) Prevention of arterial thromboembolismincluding patients with mechanical heart valves: 3 - 4.5 Order Comment: PT WA NTS TO WAIT UNTIL SHE IS TAKEN BACK INTO ER AND THEY START A IV ON HER,2099 Result Comment: INR Therapeutic Range A) Pre- and Peroperative OAT started two weeks before surgery. NOT HIP SURGERY: 1.5 - 2.5 HIP SURGERY: 2 - 3 B) Primary and secondary prevention of venous THROMBOSIS: 2 - 3 C) Active venous thrombosis, pulmonary embolism and prevention of recurrent venous thrombosis: 2 - 3 D) Prevention of arterial thromboembolism including patients with mechanical heart valves: 3 - 4.5 Performed By: #### P TT, CBC, BMP, HS TROP, CK, PT, BNP #### [facility] [address] [place] [address] [facility] No Panel InformationOrdered By: Ania Watson on 08-03-2024 Estimated GFR (CKD-EPI) > 60.0 mL/Min [facility] Creatinine Clearance (Chem 154.09 [facility] Partial Thromboplastin Timeo n 08-03-2024 aPTT Coag (Bld) [Time] 24.7 s Low 25.1-36.5 Th e [facility] Comment on above: Order Comment: PT WA NTS TO WAIT UNTIL SHE IS TAKEN BACK INTO ER AND THEY START A IV ON HER,, 2099 Result Comment: A he matocrit value greater than 55% may lead to inaccurate results in coagulation testing. Patients having hematocrit values >55% require a special collection tube for coagulation studies. Please contact the laboratory at [phone] for redraw instructions. PERFORMED BY: [facility] [address] [place] [address] PATHOLOGIST ROTARY ENGINE ASSEMBLER NAY SARKAR M.D. Performed By: #### P TT, CBC, BMP, HS TROP, CK, PT, BNP #### [facility] [address] Potassium [Moles/volume] in Serum or PlasmaOrdered By: Ania Watson on 08-03-2024 Potassium [Moles/Vol] 3.5 mmol/L Normal 3.5-5.1 [facility] Comment on above: Hemolysis is present at a level that could interfere with the result.Contact lab if redraw is required Order Comment: PT WA NTS TO WAIT UNTIL SHE IS TAKEN BACK INTO ER AND THEY START A IV ON HER,2099 Result Comment: Hemo lysis is present at a level that could interfere with the result. Contact lab if redraw is required Performed By: #### P TT, CBC, BMP, HS TROP, CK, PT, BNP #### [facility] [address] Prothrombin time (PT)Ordered By: Ania Watson on 08-03-2024 PT Coag (PPP) [Time] 13.3 s High 9.0-12.9 [facility] Comment on above: A hematocrit value g reater than 55% may lead to inaccurate results in coagulation testing. Patients having hematocrit values >55% require a special collection tube for coagulation studies. Please contact the laboratory at [phone] for redraw instructions. Order Comment: PT WA NTS TO WAIT UNTIL SHE IS TAKEN BACK INTO ER AND THEY START A IV ON HER,2099 Result Comment: A he matocrit value greater than 55% may lead to inaccurate results in coagulation testing. Patients having hematocrit values >55% require a special collection tube for coagulation studies. Please contact the laboratory at [phone] for redraw instructions. Performed By: #### P TT, CBC, BMP, HS TROP, CK, PT, BNP #### [facility] [address] Serum or plasma anion gap de terminationOrdered By: Ania Watson on 08-03-2024 Anion gap [Moles/Vol] 20.0 mmol/L High 6.0-15.0 [facility] Comment on above: Order Comment: PT WA NTS TO WAIT UNTIL SHE IS TAKEN BACK INTO ER AND THEY START A IV ON HER2099 Performed By: #### P TT, CBC, BMP, HS TROP, CK, PT, BNP #### [facility] [address] [place] [address] [place] Sodium [Moles/volume] in Ser um or PlasmaOrdered By: Ania Watson on 08-03-2024 Sodium [Moles/Vol] 134 mmol/L Low 136-145 [facility] Comment on above: Order Comment: PT WA NTS TO WAIT UNTIL SHE IS TAKEN BACK INTO ER AND THEY START A IV ON HER2099 Performed By: #### P TT, CBC, BMP, HS TROP, CK, PT, BNP #### [facility] [address] [place] [address] [place] Troponin I High Sensitivityo n 08-03-2024 Troponin I High Sensitivity 7.0 pg/mL Normal 0.0-15.0 [facility] Comment on above: Order Comment: PT WA NTS TO WAIT UNTIL SHE IS TAKEN BACK INTO ER AND THEY START A IV ON HER2099 Result Comment: PERF ORMED BY: [place] [address] PATHOLOGIST ROTARY ENGINE ASSEMBLER NAY SARKAR M.D. Performed By: #### P TT, CBC, BMP, HS TROP, CK, PT, BNP #### [facility] [address] Troponin I.cardiac [Mass/vol ume] in Serum or Plasma by Detection limit <= 0.01 ng/Ordered By: Ania Watson on 08-03-2024 Troponin I.cardiac DL <= 0.01 ng/mL [Mass/Vol] 7.0 pg/mL 0.0-15.0 [facility] Urea nitrogen [Mass/volume] in Serum or PlasmaOrdered By: Ania Watson on 08-03-2024 Urea nitrogen [Mass/Vol] 20 mg/dL Normal 7-25 [facility] Comment on above: Order Comment: PT WA NTS TO WAIT UNTIL SHE IS TAKEN BACK INTO ER AND THEY START A IV ON HER2099 Performed By: #### P TT, CBC, BMP, HS TROP, CK, PT, BNP #### [facility] [address] [place] [id number] [facility] B hCG Qualon 08-01-2024 Beta HCG ( test) Ql Negative Normal [facility] Comment on above: Performed By: #### 2 [id number] #### [facility] [address] [place] [address] BMPon 08-01-2024 Anion gap [Moles/Vol] 14 mmol/L Normal 6-16 [facility] Comment on above: Performed By: #### 2 [id number] #### [facility] [address] [place] [address] Calcium [Mass/Vol] 9.7 mg/dL Normal 8.9-11.1 [facility] Comment on above: Performed By: #### 2 [id number] #### [facility] [address] [place] [address] Chloride [Moles/Vol] 102 mmol/L Normal 101-111 [facility] Comment on above: Performed By: #### 2 [id number] #### [facility] [address] [place] [address] CO2 [Moles/Vol] 24 mmol/L Normal 21-31 [facility] Comment on above: Performed By: #### 2 [id number] #### [facility] [address] [place] [address] Creatinine [Mass/Vol] 0.7 mg/dL Normal 0.5-1.3 [facility] Comment on above: Performed By: #### 2 [id number] #### [facility] [address] [place] [address] Glucose [Mass/Vol] 96 mg/dL Normal 55-199 [facility] Comment on above: Performed By: #### 2 705939 #### [facility] [address] [place] [address] Potassium [Moles/Vol] 3.3 mmol/L Low 3.5-5.3 [facility] Comment on above: Performed By: #### 2 259730 #### [facility] [address] [place] [address] Sodium [Moles/Vol] 137 mmol/L Normal 135-145 [facility] Comment on above: Performed By: #### 2 547807 #### [facility] [address] [place] [address] Urea nitrogen [Mass/Vol] 18 mg/dL Normal 5-21 [facility] Comment on above: Performed By: #### 2 600843 #### [facility] [address] [place] [address] Urea nitrogen/Creatinine [Mass ratio] 26 No Units High 10-20 [facility] Comment on above: Performed By: #### 2 [id number] #### [facility] [address] [place] [address] CBC w/ Auto Diffon 4 Basophils/100 WBC (Bld) 0.3 % Normal 0.0-2.0 [facility] Comment on above: Performed By: #### 2 [id number] #### [facility] [address] [place] [address] Basophils/Leukocytes Auto (Bld) [Pure # fraction] 0.1 E9/L Normal 0.0-0.2 [facility] Comment on above: Performed By: #### 2 187902 #### [facility] [address] [place] [address] Eosinophils (Bld) [#/Vol] 0.1 E9/L Normal 0.0-0.5 [facility] Comment on above: Performed By: #### 2 [id number] #### [facility] [address] [place] [address] Eosinophils/100 WBC (Bld) 0.4 % Normal 0.0-8.0 [facility] Comment on above: Performed By: #### 2 [id number] #### [facility] [address] [place] [address] Erythrocyte distribution width (RBC) [Ratio] 13.3 % Normal 10.9-14.2 [facility] Comment on above: Performed By: #### 2 004571 #### [facility] [address] [place] [address] Hematocrit (Bld) [Volume fraction] 43.9 % Normal 34.0-46.0 [facility] Comment on above: Performed By: #### 2 349443 #### [facility] [address] [place] [address] Hemoglobin (Bld) [Mass/Vol] 14.5 g/dL Normal 12.0-16.0 [facility] Comment on above: Performed By: #### 2 [id number] #### [facility] [address] [place] [address] Lymphocytes (Bld) [#/Vol] 2.3 E9/L Normal 1.0-4.0 [facility] Comment on above: Performed By: #### 2 218115 #### [facility] [address] [place] [address] Lymphocytes/100 WBC (Bld) 13.7 % Low 14.0-50.0 [facility] Comment on above: Performed By: #### 2 355712 #### [facility] [address] [place] [address] MCH (RBC) [Entitic mass] 28.3 pg Normal 27.0-34.0 [facility] Comment on above: Performed By: #### 2 [id number] #### [facility] [address] [place] [address] MCHC (RBC) [Mass/Vol] 33.0 g/dL Normal 31.4-36.0 [facility] Comment on above: Performed By: #### 2 474958 #### [facility] [address] [place] [address] MCV (RBC) [Entitic vol] 85.8 fL Normal 80.0-100.0 [facility] Comment on above: Performed By: #### 2 015219 #### [facility] [address] [place] [address] Monocytes (Bld) [#/Vol] 1.2 E9/L High 0.2-1.0 [facility] Comment on above: Performed By: #### 2 759674 #### [facility] [address] [place] [address] Neutrophils (Bld) [#/Vol] 13.1 E9/L High 2.0-7.5 [facility] Comment on above: Performed By: #### 2 318156 #### [facility] [address] [place] [address] Neutrophils/100 WBC (Bld) 78.5 % High 36.0-75.0 [facility] Comment on above: Performed By: #### 2 [id number] #### [facility] [address] [place] [address] Platelet mean volume (Bld) [Entitic vol] 8.2 fL Normal 6.4-10.8 [facility] Comment on above: Performed By: #### 2 844591 #### [facility] [address] [place] [address] Platelets (Bld) [#/Vol] 246.0 E9/L Normal 150.0-500. 0 [facility] Comment on above: Performed By: #### 2 860548 #### [facility] [address] [place] [address] RBC (Bld) [#/Vol] 5.1 E12/L Normal 4.3-5.9 [facility] Comment on above: Performed By: #### 2 616951 #### [facility] [address] [place] [address] WBC corrected for nucl RBC Auto (Bld) [#/Vol] 16.7 E9/L High 4.0-11.0 [facility] Comment on above: Result Comment: Sarahi pheral smear review performed. Performed By: #### 2 [id number] #### [facility] [address] [place] [address] ED Clinical Summaryon 2023 ED Clinical Summary ED Clinical Summary [address] [address] ED Clinical Summary Person Information Name: PILI PARIKH/New_Anthony Age: 19 Years : 2005 Sex: Female Language: Monegasque PCP: MODESTA CHAND CNP Marital Status: Single Visit Id: Visit Reason: Dizziness; Vomiting; Nausea; N/V DIZZY Speciality: Acuity: 3 Enc Type: Emergency Med Service: Emergency Arrival: 08/01/2024 09:23:00 Discharge: 08/01/2024 12:07:00 LOS: 000 02:44 Checkin: 08/01/2024 09:23:00 Checkout: 08/01/2024 12:07:00 Dispo Type: Home (Routine DC) EVENTS: Event Name Event Status Request Date/Time Start Date/Time Complete Date/Time Arrive Complete 08/01/2024 09:23:00 08/01/2024 09:23:00 08/01/2024 09:23:00 Document Home Meds Request 08/01/2024 09:23:00 Triage Complete 08/01/2024 09:23:00 08/01/2024 09:34:41 08/01/2024 09:34:41 Bed Assign Complete 08/01/2024 09:27:41 08/01/2024 09:27:41 08/01/2024 09:27:41 Dr Exam Complete 08/01/2024 09:27:41 08/01/2024 09:27:57 08/01/2024 09:27:57 RN Exam Complete 08/01/2024 09:27:41 08/01/2024 09:48:32 08/01/2024 09:48:32 Registration Complete 08/01/2024 09:27:57 08/01/2024 09:44:44 08/01/2024 09:49:11 EKG Complete 08/01/2024 09:33:55 08/01/2024 09:53:19 Reg Complete Request 08/01/2024 09:49:11 Reg Bed Request Complete 08/01/2024 09:49:11 08/01/2024 09:49:11 08/01/2024 09:49:11 Meds Admin Complete 08/01/2024 10:04:14 08/01/2024 10:22:37 Pending Labs Request 08/01/2024 10:04:14 Lab Complete 08/01/2024 10:04:14 08/01/2024 11:13:14 Pending Labs Cancel 08/01/2024 10:11:15 08/01/2024 10:30:02 Lab Cancel 08/01/2024 10:11:15 08/01/2024 10:30:02 Pending Labs Complete 08/01/2024 10:26:17 08/01/2024 10:26:17 08/01/2024 10:55:01 Lab Complete 08/01/2024 10:26:17 08/01/2024 10:26:17 08/01/2024 10:55:01 Pending Labs Complete 08/01/2024 10:30:29 08/01/2024 10:30:29 08/01/2024 10:55:01 Lab Complete 08/01/2024 10:30:29 08/01/2024 10:30:29 08/01/2024 10:55:01 Meds Admin Complete 08/01/2024 11:10:33 08/01/2024 11:49:37 Discharge Complete 08/01/2024 11:56:57 08/01/2024 12:09:48 08/01/2024 12:09:48 Transfer Complete 08/01/2024 12:09:48 08/01/2024 12:09:48 08/01/2024 12:09:48 ADDRESS: [address] [facility] [id number] PHYS DOC NOTES: MEDICAL INFORMATION: Prescriptions Given: New Medications [id number], [address], [place] [id number], [phone] potassium chloride (potassium chloride 20 mEq ER Tab) 1 Tablets By Mouth 2 times a day for 2 Days. Refills: 0. Medications to Continue with No Changes Other Medications naproxen (Naprosyn 500 mg Tab) 1 Tablets By Mouth 2 times a day as needed for pain. Refills: 0. ondansetron (Zofran ODT 4 mg Tab-Dis) 1 Tablets By Mouth every 8 hours as needed Nausea/Vomiting. Refills: 0. promethazine (Phenergan 12.5 mg Supp) 1 Suppositories By rectum every 8 hours as needed as needed for nausea/vomiting. 3rd line. Refills: 0. promethazine (Phenergan 25 mg Supp) 1 Suppositories By rectum every 6 hours as needed Nausea/Vomiting. Refills: 0. promethazine (promethazine 12.5 mg oral tablet) 1 Tablets By Mouth every 8 hours as needed as needed for nausea/vomiting. second line. Refills: 0. PATIENT EDUCATION INFORMATION: Instructions: Hypokalemia; Diarrhea, Adult; Nausea and Vomiting, Adult Follow up: With: Address: When: MODESTA CHAND [address] [place] [id number] [phone] [employer] (1) In 3 days 08/04/2024 Comments: Make sure to fill the prescriptions that was prescribed from [place]. Fill the new prescription for potassium. Follow-up with your primary doctor as discussed. Return to the emergency room if your vomiting recurs, abdominal pain recurs or any new symptoms. DIAGNOSIS: 1:Vomiting and diarrhea; 2:Hypokalemia; 3:Leukocytosis; Diarrhea, unspecified Normal [facility] ED Note-Physicianon 08-01-20 ED Note-Physician ED Note-Physician Basic Information Time Seen: August Beck M.D. 08/01/2024 09:27 Chief Complaint just left [place] ER, seen multiple times for n/v lightheaded. hx cyclic vomiting, state its not that. has medication at [facility] but wanted to come here instead for IV fluids. History of Present Illness The patient is a 19-year-old female who presented to the emergency room with her boyfriend for nausea, vomiting and dizziness. The patient states for past couple of days she has been feeling nauseated and she is vomiting. She states now she is having streaks of blood with her vomiting. The patient states she had diarrhea initially when her symptoms started. The diarrhea has stopped. She denies any black or bloody stool. The patient denies any fever, denies any chills. She reports dizziness when standing. The patient reports no shortness of breath. She reports some chest pain from vomiting. The patient denies any bad food. She denies any recent traveling. The patient denies any sick contact. The patient was at [facility] and they did send medication to [facility] however she feels she is dehydrated. The patient denies any other associated symptoms. Review of Systems Additional ROS info: Except as noted in the above Review of Systems and in the History of Present Illness all other systems have been reviewed and are negative or noncontributory. Physical Exam Vitals & Measurements T: 36.7 ?C(Oral) HR: 54(Monitored) RR: 18 BP: 112/80 SpO2: 100% HT: 157 cm WT: 95.1 kg BMI: 38.58 General: alert, no acute distress Skin: warm, dry Head: no trauma, normocephalic Neck: Trachea midline, no tenderness, supple Eye: normal conjunctiva, sclera clear, ENMT: Oral mucosa moist, Cardiovascular: regular rate and rhythm, Respiratory: Lungs CTA, respirations non labored, breath sounds equal Gastrointestinal: soft, non distended, mild epigastric tenderness, no guarding, Extremities: no deformity, no trauma Neurological: Alert and oriented, speech normal, no focal neuro deficits Psychiatric: cooperative, affect appropriate for age, Medical Decision Making MEDICAL DECISION MAKING Number and Complexity of Problems Differential Diagnosis: [] [facility] Data External documents reviewed: [] My EKG interpretation: [] My CT interpretation: [] My X-ray interpretation: [] My Ultrasound interpretation: [] Decision rules/scores evaluated: [] Discussed with: [] Treatment and Disposition ED Course: The patient presented with vomiting diarrhea that had stopped and dizziness when she is standing. More likely her dizziness is due to dehydration. Blood work reviewed. Patient has leukocytosis. More likely reactive. Her potassium is slightly low due to vomiting and or diarrhea. Her abdomen is completely benign with some mild tenderness in the epigastric area. The patient was given IV fluids, Zofran Pepcid Bentyl and her symptoms improved. We wanted to give her another liter of fluid and potassium p.o. The patient did not want to stay any longer. She agreed to take prescription for potassium pills. She is instructed to fill the prescription given by [place] and filled a new prescription for potassium. She is instructed to follow-up with primary care and return to the emergency room if her vomiting recurs, abdominal pain recurs or any new symptoms. Shared decision making: [] Code status: [] Assessment/Plan 1. Vomiting and diarrhea (R11.10: Vomiting, unspecified) 2. Hypokalemia (E87.6: Hypokalemia) 3. Leukocytosis (D72.829: Elevated white blood cell count, unspecified) Diarrhea, unspecified (R19.7: Diarrhea, unspecified) Orders: dicyclomine, 20 mg = 2 mL, Injection, IntraMuscular, Once, Stop date 08/01/24 11:10:00 EDT, STAT, Start date 08/01/24 11:10:00 EDT, 08/01/24 11:10:00 EDT famotidine, 20 mg = 2 mL, Soln-IV, IV Push, Once, Stop date 08/01/24 10:03:00 EDT, STAT, Start date 08/01/24 10:03:00 EDT, 08/01/24 10:03:00 EDT ondansetron, 4 mg = 2 mL, Injection, IV Push, Once, Stop date 08/01/24 10:03:00 EDT, STAT, Start date 08/01/24 10:03:00 EDT, 08/01/24 10:03:00 EDT potassium chloride, 20 mEq = 1 tab(s), Oral, BID, X 2 day(s), # 4 tab(s), Refills(s) 0, Pharmacy: [id number], 157, cm, 08/01/24 9:34:00 EDT, Height/Length Dosing, 95.1, kg, 08/01/24 9:34:00 EDT, Weight Dosing Sodium Chloride 0.9% intravenous solution, 2,000 mL, Soln-IV, IV, Once, Stop date 08/01/24 10:03:00 EDT, STAT, Start date 08/01/24 10:03:00 EDT, Infuse over 61, minute(s) Basic Metabolic Panel Beta hCG Qual CBC w/ Auto Diff eGFR Hepatic Function Panel Lipase Level Magnesium Level PT & PTT Troponin 0 Hr. UA with Cult Rflx Medications Administered Given Bentyl 10 mg/mL Injection, 20 mg, IntraMuscular famotidine 10 mg/mL IV Lisa, 20 mg, IV Push NS 1000 ml Bolus, 2000 mL, IV ondansetron 4 mg/2 mL Inj, 4 mg, IV Push Disposition Plan Patient Discharge Condition Stable, improved Discharge Disposition Dis (more content not included)... Normal [facility] Comment on above: Result Comment: Elec tronically Signed By: Ebony Birmingham, August Carbone\.br\Date and Time Signed: 08/01/24 11:58 EDT ED Patient Summaryon 024 ED Patient Summary ED Patient Summary [place] [id number] Patient Discharge Instructions Person Information Name: PILI PARIKH Age: 19 Years Arrival Date: 08/01/2024 09:23:00 Discharge Diagnosis: 1:Vomiting and diarrhea; 2:Hypokalemia; 3:Leukocytosis; Diarrhea, unspecified Primary Care Physician: MODESTA CHAND CNP Provider Information Primary Provider: August Beck M.D. Advanced Teacher Adventure Education:None The exam and treatment you received in the Emergency Department were for an urgent problem and are not intended as complete care. It is important that you follow up with a doctor, nurse practitioner, or physician?s fast food assistant restaurant manager for ongoing care. If your symptoms become worse or you do not improve as expected and you are unable to reach your usual health care provider, you should return to the Emergency Department. We are available 24 hours a day. PILI PARIKH has been given the following list of patient education materials, prescriptions and follow-up instructions: Follow-up Instructions: With: Address: When: MODESTA CHAND [facility] [address] [place] [phone] Business (1) In 3 days 08/04/2024 Comments: Make sure to fill the prescriptions that was prescribed from [place]. Fill the new prescription for potassium. Follow-up with your primary doctor as discussed. Return to the emergency room if your vomiting recurs, abdominal pain recurs or any new symptoms. In the event that this physician does not participate in your insurance network, please consult with your insurance company to find a nearby participating provider. Patient Education Materials: Hypokalemia; Diarrhea, Adult; Nausea and Vomiting, Adult A MESSAGE TO ALL PATIENTS REGARDING OPIOIDS PRESCRIPTION OPIOIDS: WHAT YOU NEED TO KNOW Prescription opioids can be used to help relieve npogprxs-ry-nsjpcy pain and are often prescribed following a [...] mail-back program, or flush them down the to (more content not included)... Normal [facility] Hep Func Panelon 08-01-2024 Albumin [Mass/Vol] 5.1 g/dL High 3.3-5.0 [facility] Comment on above: Performed By: #### 2 [id number] #### [facility] [address] [place] [address] Albumin/Globulin (S) [Mass conc ratio] 1.7 Normal 1.1-2.2 [facility] Comment on above: Performed By: #### 2 [id number] #### [facility] [address] [place] [address] ALP [Catalytic activity/Vol] 75 Int._Unit/L Normal 21-98 [facility] Comment on above: Performed By: #### 2 [id number] #### [facility] [address] [place] [address] ALT No additional P-5'-P [Catalytic activity/Vol] 45 Int._Unit/L Normal 6-46 [facility] Comment on above: Performed By: #### 2 [id number] #### [facility] [address] [place] [address] AST [Catalytic activity/Vol] 25 Int._Unit/L Normal 5-43 [facility] Comment on above: Performed By: #### 2 [id number] #### [facility] [address] [place] [address] Bilirubin [Mass/Vol] 0.9 mg/dL Normal 0.0-1.1 [facility] Comment on above: Performed By: #### 2 [id number] #### [facility] [address] [place] [address] Bilirubin.direct [Mass/Vol] 0.1 mg/dL Normal 0.0-0.4 [facility] Comment on above: Performed By: #### 2 [id number] #### [facility] [address] [place] [address] Bilirubin.indirect [Mass or moles/Vol] 0.8 mg/dL Normal 0.1-0.9 [facility] Comment on above: Performed By: #### 2 [id number] #### [facility] [address] [place] [address] Globulin (S) [Mass/Vol] 3.0 g/dL Normal 1.4-4.0 [facility] Comment on above: Performed By: #### 2 [id number] #### [facility] [address] [place] [address] Protein [Mass/Vol] 8.1 g/dL High 6.0-7.8 [facility] Comment on above: Performed By: #### 2 [id number] #### [facility] [address] [place] [address] Lipase Levelon 08-01-2024 Lipase [Catalytic activity/Vol] 27 U/L Normal 13-58 [facility] Comment on above: Performed By: #### 2 [id number] #### [facility] [address] [place] [address] Magnesiumon 08-01-2024 Magnesium [Mass/Vol] 2.2 mg/dL Normal 1.3-2.4 [facility] Comment on above: Performed By: #### 2 [id number] #### [facility] [address] [place] [address] PT & PTTon 08-01-2024 aPTT Coag (PPP) [Time] 31.2 second(s) Normal 25.1-36.5 [facility] Comment on above: Result Comment: Para meter 15 days - 4 weeks 1 - 5 months 6 - 11 months 1 - 5 years 6 - 10 years 11 - 17 years PTT Mean: 35.4 (27.6-45.6) Mean: 33.5 (24.8-40.7) Mean: 32.4 (25.1-40.7) Mean: 31.6 (24.0-39.2) Mean: 31.6 (26.9-38.7) Mean: 31.0 (24.6-38.4) Pediatric Reference ranges were obtained from a study by calvin Youssef prepared from 1437 samples obtained at 7 different centers using the same coagulation reagent and instrumentation as [facility]. Currently there are no coagulation studies available worldwide for children to 14 days, and no normal ranges. Heparin therapeutic range (represented by Anti-Factor Xa activity of 0.2 - 0.4 U/mL) corresponds to PTT of 56.6 - 109.0 sec. Performed By: #### 1 [id number] #### [facility] [address] [place] [address] INR Coag (PPP) [Relative time] 1.11 {INR} Invalid Interpretation Code [facility] Comment on above: Result Comment: INR results are specifically intended to assess patients stabilized on long-term Anticoagulation therapy suggested INR?s ?Less Intensive Anticoagulation? 2.0 ? 3.0 Conventional Range 3.0 ? 4.5 Performed By: #### 1 [id number] #### [facility] [address] [place] [address] PT Coag (PPP) [Time] 12.5 second(s) Normal 9.4-12.5 [facility] Comment on above: Result Comment: 15 d ays - 4 weeks 1 - 5 months 6 -11 months 1- 5 years 6-10 years 11 -17 years Mean: 11.2 (9.5-12.6) Mean: 11.0 (9.7-12.8) Mean: 11.0 (9.8-13.0) Mean: 11.3 (9.9-13.4) Mean: 11.7 (10.0-14.6) Mean: 11.8 (10.0 - 14.1) Pediatric Reference ranges were obtained from a study by calvin Youssef prepared from 1437 samples obtained at 7 different centers using the same coagulation reagent and instrumentation as [facility]. Currently there are no coagulation studies available worldwide for children to 14 days, and no normal ranges. Performed By: #### 1 [id number] #### [facility] [address] [place] [address] Troponin 0 Hr.on 08-01-2024 Troponin HS 5.20 pg/mL Low 10.10-27.1 0 [facility] Comment on above: Result Comment: The 95% CI (Confidence Interval) PPV (Positive Predictive Value) for myocardial infarction in females is 38 pg/mL, in males 51 pg/mL. The results should be used in conjunction with clinical conditions of myocardial infarction. (Access High Sensitivity Troponin I Instructions For Use, Sugar Sundar, June 2018) Performed By: #### 1 [id number] #### [facility] [address] [place] [address] eGFRon 08-01-2024 eGFR 126 mL/min/1.73 m2 Normal >=59 [facility] Comment on above: Order Comment: Order added by Discern Expert. Performed By: #### 1 [id number] #### [facility] [address] [place] [address] BMPon 07-30-2024 Anion gap [Moles/Vol] 13 mmol/L Normal 6-16 [facility] Comment on above: Performed By: #### 2 [id number] #### [facility] [address] [place] [address] Calcium [Mass/Vol] 9.4 mg/dL Normal 8.9-11.1 [facility] Comment on above: Performed By: #### 2 [id number] #### [facility] [address] [place] [address] Chloride [Moles/Vol] 107 mmol/L Normal 101-111 [facility] Comment on above: Performed By: #### 2 [id number] #### [facility] [address] [place] [address] CO2 [Moles/Vol] 25 mmol/L Normal 21-31 [facility] Comment on above: Performed By: #### 2 [id number] #### [facility] [address] [place] [address] Creatinine [Mass/Vol] 0.8 mg/dL Normal 0.5-1.3 [facility] Comment on above: Performed By: #### 2 [id number] #### [facility] [address] [place] [address] Glucose [Mass/Vol] 89 mg/dL Normal 55-199 [facility] Comment on above: Performed By: #### 2 [id number] #### [facility] [address] [place] [address] Potassium [Moles/Vol] 3.6 mmol/L Normal 3.5-5.3 [facility] Comment on above: Performed By: #### 2 [id number] #### [facility] [address] [place] [address] Sodium [Moles/Vol] 141 mmol/L Normal 135-145 [facility] Comment on above: Performed By: #### 2 [id number] #### [facility] [address] [place] [address] Urea nitrogen [Mass/Vol] 19 mg/dL Normal 5-21 [facility] Comment on above: Performed By: #### 2 [id number] #### [facility] [address] [place] [address] Urea nitrogen/Creatinine [Mass ratio] 24 No Units High 10-20 [facility] Comment on above: Performed By: #### 2 [id number] #### [facility] [address] [place] [address] CBC w/ Auto Diffon 4 Basophils/100 WBC (Bld) 0.4 % Normal 0.0-2.0 [facility] Comment on above: Performed By: #### 2 [id number] #### [facility] [address] [place] [address] Basophils/Leukocytes Auto (Bld) [Pure # fraction] 0.1 E9/L Normal 0.0-0.2 [facility] Comment on above: Performed By: #### 2 [id number] #### [facility] [address] [place] [address] Eosinophils (Bld) [#/Vol] 0.1 E9/L Normal 0.0-0.5 [facility] Comment on above: Performed By: #### 2 169011 #### [facility] [address] [place] [address] Eosinophils/100 WBC (Bld) 0.5 % Normal 0.0-8.0 [facility] Comment on above: Performed By: #### 2 [id number] #### [facility] [address] [place] [address] Erythrocyte distribution width (RBC) [Ratio] 13.2 % Normal 10.9-14.2 [facility] Comment on above: Performed By: #### 2 [id number] #### [facility] [address] [place] [address] Hematocrit (Bld) [Volume fraction] 39.6 % Normal 34.0-46.0 [facility] Comment on above: Performed By: #### 2 332809 #### [facility] [address] [place] [address] Hemoglobin (Bld) [Mass/Vol] 13.7 g/dL Normal 12.0-16.0 [facility] Comment on above: Performed By: #### 2 [id number] #### [facility] [address] [place] [address] Lymphocytes (Bld) [#/Vol] 2.3 E9/L Normal 1.0-4.0 [facility] Comment on above: Performed By: #### 2 [id number] #### [facility] [address] [place] [address] Lymphocytes/100 WBC (Bld) 14.1 % Normal 14.0-50.0 [facility] Comment on above: Performed By: #### 2 [id number] #### [facility] [address] [place] [address] MCH (RBC) [Entitic mass] 29.4 pg Normal 27.0-34.0 [facility] Comment on above: Performed By: #### 2 [id number] #### [facility] [address] [place] [address] MCHC (RBC) [Mass/Vol] 34.5 g/dL Normal 31.4-36.0 [facility] Comment on above: Performed By: #### 2 527143 #### [facility] [address] [place] [address] MCV (RBC) [Entitic vol] 85.3 fL Normal 80.0-100.0 [facility] Comment on above: Performed By: #### 2 [id number] #### [facility] [address] [place] [address] Monocytes (Bld) [#/Vol] 1.2 E9/L High 0.2-1.0 [facility] Comment on above: Performed By: #### 2 [id number] #### [facility] [address] [place] [address] Neutrophils (Bld) [#/Vol] 12.6 E9/L High 2.0-7.5 [facility] Comment on above: Performed By: #### 2 [id number] #### [facility] [address] [place] [address] Neutrophils/100 WBC (Bld) 77.5 % High 36.0-75.0 [facility] Comment on above: Performed By: #### 2 [id number] #### [facility] [address] [place] [address] Platelet 260.0 E9/L Normal 150.0-500. 0 [facility] Comment on above: Performed By: #### 2 [id number] #### [facility] [address] [place] [address] Platelet mean volume (Bld) [Entitic vol] 8.1 fL Normal 6.4-10.8 [facility] Comment on above: Performed By: #### 2 [id number] #### [facility] [address] [place] [address] RBC (Bld) [#/Vol] 4.7 E12/L Normal 4.3-5.9 [facility] Comment on above: Performed By: #### 2 [id number] #### [facility] [address] [place] [address] WBC corrected for nucl RBC Auto (Bld) [#/Vol] 16.2 E9/L High 4.0-11.0 [facility] Comment on above: Performed By: #### 2 614489 #### [facility] [address] [place] [address] CHEMISTRYOrdered By: Manish carpio on 07-30-2024 Albumin [Mass/Vol] 4.7 g/dL Normal 3.3 - 5.0 gm/dL [facility] Albumin/Globulin [Mass ratio] 1.7 {ratio} Normal 1.1 - 2.2 [facility] ALP [Catalytic activity/Vol] 73 [iU]/d Normal 21 - 98 Int._Unit/ L [facility] ALT No additional P-5'-P [Catalytic activity/Vol] 46 [iU]/d Normal 6 - 46 Int._Unit/ L [facility] Anion gap [Moles/Vol] 13 mmol/L Normal 6 - 16 mEq/L [facility] AST [Catalytic activity/Vol] 24 [iU]/d Normal 5 - 43 Int._Unit/ L [facility] Bilirubin [Mass/Vol] 0.7 mg/dL Normal 0.0 - 1 .1 mg/dL [facility] Bilirubin.direct [Mass/Vol] 0.1 mg/dL Normal 0.0 - 0.4 mg/dL [facility] Bilirubin.indirect [Mass or moles/Vol] 0.6 mg/dL Normal 0.1 - 0.9 mg/dL [facility] Calcium [Mass/Vol] 9.4 mg/dL Normal 8.9 - 11. 1 mg/dL [facility] Chloride [Moles/Vol] 107 mmol/L Normal 101 - 1 11 mmol/L [facility] CO2 [Moles/Vol] 25 mmol/L Normal 21 - 31 mmol/L [facility] Creatinine [Mass/Vol] 0.8 mg/dL Normal 0.5 - 1.3 mg/dL [facility] eGFR 108 mL/min/1.73 m2 Normal >=59mL/mi n /1.73 m2 [facility] Globulin (S) [Mass/Vol] 2.8 g/dL Normal 1.4 - 4.0 gm/dL [facility] Glucose [Mass/Vol] 89 mg/dL Normal 55 - 199 mg/dL [facility] Lipase [Catalytic activity/Vol] 10 U/L Low 13 - 58 unit/L [facility] Magnesium [Mass/Vol] 2.2 mg/dL Normal 1.3 - 2 .4 mg/dL [facility] Potassium [Moles/Vol] 3.6 mmol/L Normal 3.5 - 5.3 mmol/L [facility] Protein [Mass/Vol] 7.5 g/dL Normal 6.0 - 7.8 gm/dL [facility] Sodium [Moles/Vol] 141 mmol/L Normal 135 - 145 mmol/L [facility] Urea nitrogen [Mass/Vol] 19 mg/dL Normal 5 - 21 mg/dL [facility] Urea nitrogen/Creatinine [Mass ratio] 24 mg/mg High 10 - 20 [facility] ED Clinical Summaryon 2023 ED Clinical Summary ED Clinical Summary [place] [address] ED Clinical Summary Person Information Name: PILI PARIKH/[facility] Age: 19 Years : 2005 Sex: Female Language: Monegasque PCP: MODESTA ARCHIBALD Marital Status: Single Visit Id: Visit Reason: Vomiting; Abdominal pain; VOMITING , CHEST PAIN Speciality: Acuity: 3 Enc Type: Emergency Med Service: Emergency Arrival: 07/30/2024 19:26:13 Discharge: 07/30/2024 22:55:46 LOS: 000 03:29 Checkin: 07/30/2024 19:26:13 Checkout: 07/30/2024 22:55:46 Dispo Type: Home (Routine DC) EVENTS: Event Name Event Status Request Date/Time Start Date/Time Complete Date/Time Arrive Complete 07/30/2024 19:26:13 07/30/2024 19:26:13 07/30/2024 19:26:13 Document Home Meds Request 07/30/2024 19:26:13 Triage Complete 07/30/2024 19:26:13 07/30/2024 19:37:32 07/30/2024 19:37:32 Bed Assign Complete 07/30/2024 19:28:34 07/30/2024 19:28:34 07/30/2024 19:28:34 Dr Exam Complete 07/30/2024 19:28:34 07/30/2024 19:28:57 07/30/2024 19:28:57 RN Exam Complete 07/30/2024 19:28:34 07/30/2024 19:56:32 07/30/2024 19:56:32 Registration Complete 07/30/2024 19:28:57 07/30/2024 19:29:18 07/30/2024 20:12:06 Meds Admin Complete 07/30/2024 20:02:02 07/30/2024 20:38:24 Pending Labs Complete 07/30/2024 20:02:02 07/30/2024 22:49:19 Lab Complete 07/30/2024 20:02:02 07/30/2024 22:49:19 Patient Care Complete 07/30/2024 20:02:02 07/30/2024 20:58:44 Urine Collect Cancel 07/30/2024 20:02:02 07/30/2024 22:49:19 Pending Labs Cancel 07/30/2024 20:02:12 07/30/2024 20:30:13 Lab Cancel 07/30/2024 20:02:12 07/30/2024 20:30:13 Reg Complete Request 07/30/2024 20:12:06 Reg Bed Request Complete 07/30/2024 20:12:06 07/30/2024 20:12:06 07/30/2024 20:12:06 Pending Labs Complete 07/30/2024 20:30:52 07/30/2024 20:30:52 07/30/2024 21:17:03 Lab Complete 07/30/2024 20:30:52 07/30/2024 20:30:52 07/30/2024 21:17:03 Pending Labs Complete 07/30/2024 20:31:13 07/30/2024 20:31:13 07/30/2024 21:17:03 Lab Complete 07/30/2024 20:31:13 07/30/2024 20:31:13 07/30/2024 21:17:03 Meds Admin Complete 07/30/2024 20:37:26 07/30/2024 20:58:35 Discharge Complete 07/30/2024 22:48:46 07/30/2024 22:55:49 07/30/2024 22:55:49 Transfer Complete 07/30/2024 22:55:49 07/30/2024 22:55:49 07/30/2024 22:55:49 ADDRESS: [address] [place] [id number] PHYS DOC NOTES: MEDICAL INFORMATION: Prescriptions Given: New Medications [facility]/pharmacy #[id number], [address], [place] [id number], [phone] ondansetron (Zofran ODT 4 mg Tab-Dis) 1 Tablets By Mouth every 8 hours as needed Nausea/Vomiting. Refills: 0. Medications to Continue Taking That Have Changed [facility]/pharmacy #[id number], [address], [place] [id number], [phone] START: promethazine (Phenergan 12.5 mg Supp) 1 Suppositories By rectum every 8 hours as needed as needed for nausea/vomiting. 3rd line. Refills: 0. START: promethazine (promethazine 12.5 mg oral tablet) 1 Tablets By Mouth every 8 hours as needed as needed for nausea/vomiting. second line. Refills: 0. Other Medications START: promethazine (Phenergan 25 mg Supp) 1 Suppositories By rectum every 6 hours as needed Nausea/Vomiting. Refills: 0. Medications to Continue with No Changes Other Medications naproxen (Naprosyn 500 mg Tab) 1 Tablets By Mouth 2 times a day as needed for pain. Refills: 0. PATIENT EDUCATION INFORMATION: Instructions: Nausea and Vomiting, Adult Follow up: With: Address: When: FAMILIA ESTRADA, [address] [address] Business (1) In 3 days 08/02/2024 DIAGNOSIS: AP (abdominal pain); N&V (nausea and vomiting) Normal [facility] ED Note-Physicianon 07-30-20 ED Note-Physician ED Note-Physician Basic Information Time Seen: Dustin Villalobos DO 07/30/2024 19:28 Chief Complaint pt. c/o abd. pain and vomiting x 3 days. hx POTS. meds at home not working. History of Present Illness HPI: Patient is a 19-year-old female past medical history of POTS and abdominal migraines who presents the ED for nausea and vomiting as well as generalized abdominal discomfort. Patient states that this been ongoing for the past 3 days. She is unable to keep anything down orally. She has been diffuse abdominal discomfort that is similar to her previous episodes of abdominal migraines. She states that in the past she has had to come to the ED for fluids and IV medication that seems to calm her symptoms. She denies any fever or chills. She denies any urinary symptoms or concern for . ROS: Pertinent review of systems conducted and is negative except as noted above. Physical exam: General: nontoxic appearing and in no distress HEENT: Mucous membranes moist Neuro: awake and alert Neck: supple, trachea midline Card: Heart regular rate and rhythm no murmur Resp: Lungs clear to auscultation no wheeze or rhonchi Abd: Soft and nondistended. Mild diffuse tenderness without rebound or guarding. Ext: No gross deformity or edema Physical Exam Vitals & Measurements T: 36.7 ?C(Oral) HR: 55(Peripheral) RR: 16 BP: 118/76 SpO2: 97% HT: 157 cm WT: 96.1 kg BMI: 38.99 Medical Decision Making MEDICAL DECISION MAKING Number and Complexity of Problems Differential Diagnosis: [] [facility] Data External documents reviewed: N/A My EKG interpretation: Noted in chart if applicable My CT interpretation: N/A My X-ray interpretation: Noted in chart if applicable My Ultrasound interpretation: N/A Decision rules/scores evaluated: N/A Discussed with: N/A Treatment and Disposition ED Course: Patient is nontoxic-appearing no distress. She has some mild diffuse tenderness but is nonperitoneal. She feels is consistent with her episodes of abdominal migraines in the past. Will obtain workup here in the ED and give her IV fluids as well as Phenergan and famotidine as well as IV Tylenol. Blood work shows a mild leukocytosis but is otherwise overall reassuring. After the fluids and medications she has had no further nausea or vomiting and her discomfort has significantly improved as well. At this time she feels stable for discharge and asked for prescription for oral Zofran and Phenergan as well as Phenergan suppositories which we will provide for her. We discussed the need for continued oral hydration and close follow-up with her primary care physician on outpatient basis. Patient was discharged stable condition. Shared decision making: As above Code status: N/A Assessment/Plan AP (abdominal pain) (R10.9: Unspecified abdominal pain) N&V (nausea and vomiting) (R11.2: Nausea with vomiting, unspecified) Orders: acetaminophen + Generic Diluent 100 mL, 1,000 mg = 100 mL, Soln-IV, IV Piggyback, Once, Stop date 07/30/24 20:37:00 EDT, STAT, Start date 07/30/24 20:37:00 EDT, 400 mL/hr, Infuse over 15 minute(s) famotidine, 20 mg = 2 mL, Soln-IV, IV Push, Once, Stop date 07/30/24 20:01:00 EDT, STAT, Start date 07/30/24 20:01:00 EDT, 07/30/24 20:01:00 EDT ondansetron, 4 mg = 1 tab(s), Oral, q8hr, PRN Nausea/Vomiting, # 16 tab(s), Refills(s) 0, Pharmacy: [facility]/pharmacy #[id number], 157, cm, 07/30/24 19:37:00 EDT, Height/Length Dosing, 96.1, kg, 07/30/24 19:37:00 EDT, Weight Dosing promethazine, 12.5 mg = 1 tab(s), Oral, q8hr, PRN as needed for nausea/vomiting, second line, # 10 tab(s), Refills(s) 0, Pharmacy: [facility]/pharmacy #[id number], 157, cm, 07/30/24 19:37:00 EDT, Height/Length Dosing, 96.1, kg, 07/30/24 19:37:00 EDT, Weight Dosing promethazine, 12.5 mg = 1 supp, Rectal, q8hr, PRN as needed for nausea/vomiting, 3rd line, # 6 EA, Refills(s) 0, Pharmacy: [facility]/pharmacy #[id number], 157, cm, 07/30/24 19:37:00 EDT, Height/Length Dosing, 96.1, kg, 07/30/24 19:37:00 EDT, Weight Dosing promethazine 12.5 mg + Sodium Chloride 0.9% intravenous solution 50 mL, Injection, IV Piggyback, Once, Stop date 07/30/24 20:01:00 EDT, STAT, Start date 07/30/24 20:01:00 EDT, 151.5 mL/hr, Infuse over 20 minute(s) Sodium Chloride 0.9% intravenous solution, 1,000 mL, Soln-IV, IV, Once, Stop date 07/30/24 20:01:00 EDT, STAT, Start date 07/30/24 20:01:00 EDT, Infuse over 61, minute(s) Basic Metabolic Panel CBC w/ Auto Diff eGFR Hepatic Function Panel Lipase Level Magnesium Level Saline Lock Insert Medications Administered Given [id number] [F] 1000 mg + GenDil 100 mL, IV Piggyback famotidine 10 mg/mL IV Lisa, 20 mg, IV Push NS 1000 ml Bolus, 1000 mL, IV [id number] [F] 12.5 mg + Sodium Chloride 0.9% IV Lisa 50 mL [F] 50 mL, IV Piggyback Disposition Plan Discharge Prescription List Prescriptions Phenergan 12.5 mg Supp, 12.5 mg= 1 supp, Rectal, q8hr, PRN promethazine 12.5 mg oral tablet, 12.5 mg= 1 tab(s), Oral, q8hr, PRN Zofran ODT 4 mg Tab-Dis, 4 mg= 1 tab(s), Or (more content not included)... Normal [facility] Comment on above: Result Comment: Elec tronically Signed By: Dustin Villalobos DO\.br\Date and Time Signed: 07/30/24 22:50 EDT ED Patient Summaryon 024 ED Patient Summary ED Patient Summary [address] [address] Patient Discharge Instructions Person Information Name: PILI PARIKH Age: 19 Years Arrival Date: 07/30/2024 19:26:13 Discharge Diagnosis: AP (abdominal pain); N&V (nausea and vomiting) Primary Care Physician: MODESTA ARCHIBALD Provider Information Primary Provider: Dustin Villalobos DO Advanced Teacher Adventure Education:None The exam and treatment you received in the Emergency Department were for an urgent problem and are not intended as complete care. It is important that you follow up with a doctor, nurse practitioner, or physician?s fast food assistant restaurant manager for ongoing care. If your symptoms become worse or you do not improve as expected and you are unable to reach your usual health care provider, you should return to the Emergency Department. We are available 24 hours a day. PILI PARIKH has been given the following list of patient education materials, prescriptions and follow-up instructions: Follow-up Instructions: With: Address: When: FAMILIA CHAND [facility] [address] E[address] [address] Business (1) In 3 days 08/02/2024 In the event that this physician does not participate in your insurance network, please consult with your insurance company to find a nearby participating provider. Patient Education Materials: Nausea and Vomiting, Adult A MESSAGE TO ALL PATIENTS REGARDING OPIOIDS PRESCRIPTION OPIOIDS: WHAT YOU NEED TO KNOW Prescription opioids can be used to help relieve [id number]-lh-[id number] pain and are often prescribed following a [...] ? If you believe you may be struggling with addiction, tell your health urgent care physician and ask for guidance or call [facility] [employer] (more content not included)... Normal [facility] HEMATOLOGYOrdered By: SYSTEM SYSTEM on 07-30-2024 Basophils/100 WBC (Bld) 0.4 % Normal 0.0 - 2.0 % [facility] Heme Basophils/Leukocytes Auto (Bld) [Pure # fraction] 0.1 E9/L Normal 0.0 - 0.2 E9/L [facility] Heme Eosinophils (Bld) [#/Vol] 0.1 E9/L Normal 0.0 - 0.5 E9/L [facility] Heme Eosinophils/100 WBC (Bld) 0.5 % Normal 0.0 - 8.0 % [facility] Heme Erythrocyte distribution width (RBC) [Ratio] 13.2 % Normal 10.9 - 14.2 % [facility]e Hematocrit (Bld) [Volume fraction] 39.6 % Normal 34.0 - 46.0 % [facility]e Hemoglobin (Bld) [Mass/Vol] 13.7 g/dL Normal 12.0 - 16.0 gm/dL [facility]e Lymphocytes (Bld) [#/Vol] 2.3 E9/L Normal 1.0 - 4.0 E9/L [facility]e Lymphocytes/100 WBC (Bld) 14.1 % Normal 14.0 - 50.0 % [facility]e MCH (RBC) [Entitic mass] 29.4 pg Normal 27.0 - 34.0 pg [facility]e MCHC (RBC) [Mass/Vol] 34.5 g/dL Normal 31.4 - 36.0 gm/dL [facility]e MCV (RBC) [Entitic vol] 85.3 fL Normal 80.0 - 100.0 fL [facility]e Monocytes (Bld) [#/Vol] 1.2 E9/L High 0.2 - 1.0 E9/L [facility] Heme Monocytes/100 WBC (Bld) 7.5 % Normal 4.0 - 14.0 % [facility]e Neutrophils (Bld) [#/Vol] 12.6 E9/L High 2.0 - 7.5 E9/L [facility]e Neutrophils/100 WBC (Bld) 77.5 % High 36.0 - 75.0 % [facility]e Platelet 260.0 E9/L Normal 150.0 - 500.0 E9/L [facility] Heme Platelet mean volume (Bld) [Entitic vol] 8.1 fL Normal 6.4 - 10.8 fL [facility] Heme RBC (Bld) [#/Vol] 4.7 E12/L Normal 4.3 - 5.9 E12/L [facility]e WBC corrected for nucl RBC Auto (Bld) [#/Vol] 16.2 E9/L High 4.0 - 11.0 E9/L [facility] Heme Hep Func Panelon 07-30-2024 Albumin [Mass/Vol] 4.7 g/dL Normal 3.3-5.0 [facility] Comment on above: Performed By: #### 2 [id number] #### [facility] [address] [place] [address] Albumin/Globulin (S) [Mass conc ratio] 1.7 Normal 1.1-2.2 [facility] Comment on above: Performed By: #### 2 [id number] #### [facility] [address] [place] [address] ALP [Catalytic activity/Vol] 73 Int._Unit/L Normal 21-98 [facility] Comment on above: Performed By: #### 2 444129 #### [facility] [address] [place] [address] ALT No additional P-5'-P [Catalytic activity/Vol] 46 Int._Unit/L Normal 6-46 [facility] Comment on above: Performed By: #### 2 766120 #### [facility] [address] [place] [address] AST [Catalytic activity/Vol] 24 Int._Unit/L Normal 5-43 [facility] Comment on above: Performed By: #### 2 124185 #### [facility] [address] [place] [address] Bilirubin [Mass/Vol] 0.7 mg/dL Normal 0.0-1.1 [facility] Comment on above: Performed By: #### 2 589051 #### [facility] [address] [place] [address] Bilirubin.direct [Mass/Vol] 0.1 mg/dL Normal 0.0-0.4 [facility] Comment on above: Performed By: #### 2 303213 #### [facility] [address] [place] [address] Bilirubin.indirect [Mass or moles/Vol] 0.6 mg/dL Normal 0.1-0.9 [facility] Comment on above: Performed By: #### 2 452054 #### [facility] [address] [place] [address] Globulin (S) [Mass/Vol] 2.8 g/dL Normal 1.4-4.0 [facility] Comment on above: Performed By: #### 2 480790 #### [facility] [address] [place] [address] Protein [Mass/Vol] 7.5 g/dL Normal 6.0-7.8 [facility] Comment on above: Performed By: #### 2 566528 #### [facility] [address] [place] [address] Lipase Levelon 07-30-2024 Lipase [Catalytic activity/Vol] 10 U/L Low 13-58 [facility] Comment on above: Performed By: #### 2 039029 #### [facility] [address] [place] [address] Magnesiumon 07-30-2024 Magnesium [Mass/Vol] 2.2 mg/dL Normal 1.3-2.4 [facility] Comment on above: Performed By: #### 2 898372 #### [facility] [address] [place] [address] eGFRon 07-30-2024 eGFR 108 mL/min/1.73 m2 Normal >=59 [facility] Comment on above: Order Comment: Order added by Discern Expert. Performed By: #### 1 [id number] #### [facility] [address] [place] [address] Alanine aminotransferase [En zymatic activity/volume] in Serum or PlasmaOrdered By: Jacinto Benitez on 03-18-2024 ALT [Catalytic activity/Vol] 25 U/L Normal 7-52 [facility] Comment on above: Performed By: #### C BC, CMP, HCGQUAL #### [address] Albumin [Mass/volume] in Ser um or Plasma by Bromocresol green (BCG) dye binding methoOrdered By: Jacinto Benitez on 03-18-2024 Albumin BCG dye [Mass/Vol] 5.3 g/dL 3.5-5.7 [facility] Alkaline phosphatase [Enzyma tic activity/volume] in Serum or PlasmaOrdered By: Jacinto Benitez on 03-18-2024 ALP [Catalytic activity/Vol] 82 U/L Normal 34-104 [facility] Comment on above: Performed By: #### C BC, CMP, HCGQUAL #### [address] Aspartate aminotransferase [ Enzymatic activity/volume] in Serum or PlasmaOrdered By: Jacinto Benitez on 03-18-2024 AST [Catalytic activity/Vol] 23 U/L Normal 13-39 [facility] Comment on above: Performed By: #### C BC, CMP, HCGQUAL #### [address] Automated basophil %Ordered By: Jacinto Benitez on 03-18-2024 Basophils/100 WBC (Bld) 0.4 % Normal . [facility] Comment on above: Performed By: #### C BC, CMP, HCGQUAL #### [address] Automated basophil countOrde red By: Jacinto Benitez on 03-18-2024 Basophils (Bld) [#/Vol] 0.1 10*3/uL Normal 0.0-0.2 [facility] Comment on above: Result Comment: PERF ORMED BY: [place] [address] PATHOLOGIST ROTARY ENGINE ASSEMBLER NAY SARKAR M.D. Performed By: #### C BC, CMP, HCGQUAL #### [address] Automated blood monocyte cou ntOrdered By: Jacinto Benitez on 03-18-2024 Monocytes (Bld) [#/Vol] 1.4 10*3/uL High 0.0-0.8 [facility] Comment on above: Performed By: #### C BC, CMP, HCGQUAL #### [address] Automated eosinophil %Ordere d By: Jacinto Benitez on 03-18-2024 Eosinophils/100 WBC (Bld) 2.3 % Normal . [facility] Comment on above: Performed By: #### C BC, CMP, HCGQUAL #### [address] Automated eosinophil countOr dered By: Jacinto Benitez on 03-18-2024 Eosinophils (Bld) [#/Vol] 0.4 10*3/uL Normal 0.0-0.45 [facility] Comment on above: Performed By: #### C BC, CMP, HCGQUAL #### [address] Automated monocyte %Ordered By: Jacinto Benitez on 03-18-2024 Monocytes/100 WBC (Bld) 7.6 % Normal . [facility] Comment on above: Performed By: #### C BC, CMP, HCGQUAL #### [address] Automated neutrophil %Ordere d By: Jacinto Benitez on 03-18-2024 Neutrophils/100 WBC (Bld) 68.8 % Normal . [facility] Comment on above: Performed By: #### C BC, CMP, HCGQUAL #### [address] Bilirubin.total [Mass/volume ] in Serum or PlasmaOrdered By: Jacinto Benitez on 03-18-2024 Bilirubin [Mass/Vol] 0.9 mg/dL Normal 0.3-1.0 [facility] Comment on above: Performed By: #### C BC, CMP, HCGQUAL #### [address] Calcium [Mass/volume] in Ser um or PlasmaOrdered By: Jacinto Benitez on 03-18-2024 Calcium [Mass/Vol] 10.4 mg/dL High 8.6-10.3 [facility] Comment on above: Performed By: #### C BC, CMP, HCGQUAL #### [address] Carbon dioxide, total [Moles /volume] in Serum or PlasmaOrdered By: Jacinto Benitez on 03-18-2024 CO2 [Moles/Vol] 18.4 mmol/L Low 21.0-31.0 [facility] Comment on above: Performed By: #### C BC, CMP, HCGQUAL #### [address] Chloride [Moles/volume] in S [place] or PlasmaOrdered By: Jacinto Benitez on 03-18-2024 Chloride [Moles/Vol] 94 mmol/L Low 98-107 [facility] Comment on above: Performed By: #### C BC, CMP, HCGQUAL #### [address] Choriogonadotropin.beta subu nit [Units/volume] in Serum or PlasmaOrdered By: Jacinto Bentiez on 03-18-2024 HCG.beta subunit Qn Negative [facility] Complete Blood Count Auto Di ffon 03-18-2024 Mean Corpuscular HGB Conc 33.9 g/dL Normal 32.0-35.0 [facility] Comment on above: Performed By: #### C BC, CMP, HCGQUAL #### [place] [address] [place] Monocytes/100 WBC (Bld) 16.34 % Normal 0.00-20.00 [facility] Comment on above: Performed By: #### C BC, CMP, HCGQUAL #### [address] NRBC% 0.1 /100{WBC} Normal 0-0.5 [facility] Comment on above: Performed By: #### C BC, CMP, HCGQUAL #### [address] [place] [address] [place] Comprehensive Metabolic Pane tushar 03-18-2024 Albumin [Mass/Vol] 5.3 g/dL Normal 3.5-5.7 [facility] Comment on above: Performed By: #### C BC, CMP, HCGQUAL #### [address] Anion gap [Moles/Vol] Not performed Normal 6.0-15.0 [facility] Comment on above: Performed By: #### C BC, CMP, HCGQUAL #### [address] Creatinine Clr Calc Pharmacy 120.98 Normal [facility] Comment on above: Performed By: #### C BC, CMP, HCGQUAL #### [address] GFR/1.73 sq M.predicted MDRD (S/P/Bld) [Vol rate/Area] mL/min/{1.73_m2} Normal [facility] Comment on above: Performed By: #### C BC, CMP, HCGQUAL #### [address] Potassium Normal 3.5-5.1 [facility] Comment on above: Result Comment: Spec imen hemolyzed, redraw requested Results called at 2349 on 03/18/24 Performed By: #### C BC, CMP, HCGQUAL #### [place] [address] [place] Creatinine [Mass/volume] in Serum or PlasmaOrdered By: Jacinto Benitez on 03-18-2024 Creatinine [Mass/Vol] 0.80 mg/dL Normal 0.60-1.20 [facility] Comment on above: Performed By: #### C BC, CMP, HCGQUAL #### [place] [address] [place] ECG 12 lead ECGon 03-18-2024 ECG 12 lead ECG [facility] Main [place] [address] [place] [address] Electrocardiograph Report Signed Patient: Pili Parikh MR#: [id number] [id number] : 2005 Acct:[id number] Age/Sex: 19 / F ADM Date: 03/18/24 Loc: ER Room: Type: [facility] ER Attending Dr: Ordering Provider: Jacinto Benitez [...] Jacinto Benitez MD 03/19/24 0105 Normal [facility] Erythrocyte distribution wid th [Ratio] by Automated countOrdered By: Jacinto Benitez on 03-18-2024 Erythrocyte distribution width (RBC) [Ratio] 14.3 % Normal 11.9-15.3 [facility] Comment on above: Performed By: #### C BC, CMP, HCGQUAL #### [facility] [address] Erythrocytes [#/volume] in B lood by Automated countOrdered By: Jacinto Benitez on 03-18-2024 RBC (Bld) [#/Vol] 5.79 10*6/uL High 3.60-5.00 [facility] Comment on above: Performed By: #### C BC, CMP, HCGQUAL #### [facility] [address] [place] [id number] [place] Glucose [Mass/volume] in Ser um or PlasmaOrdered By: Jacinto Benitez on 03-18-2024 Glucose [Mass/Vol] 95 mg/dL Normal 70-100 [facility] Comment on above: ADA recommended refe rence rangeRandom Glucose Reference Range is dependent on time and content of last meal. Glucose of more than 200 mg/dL in a nonstressed, ambulatory subject supports the diagnosis of Diabetes Mellitus. Result Comment: [place] Glucose Reference Range is dependent on time and content of last meal. Glucose of more than 200 mg/dL in a nonstressed, ambulatory subject supports the diagnosis of Diabetes Mellitus. ADA recommended reference range Performed By: #### C BC, CMP, HCGQUAL #### [address] HCG,Qualitative Serumon 02-27 HCG,Qualitative Serum Negative Normal [facility] Comment on above: Result Comment: PERF ORMED BY: [place] [address] PATHOLOGIST ROTARY ENGINE ASSEMBLER NAY SARKAR M.D. Performed By: #### C BC, CMP, HCGQUAL #### [address] Hematocrit [Volume Fraction] of Blood by Automated countOrdered By: Jacinto Benitez on 03-18-2024 Hematocrit (Bld) [Volume fraction] 48.2 % High 34.0-46.4 [facility] Comment on above: Performed By: #### C BC, CMP, HCGQUAL #### [address] Hemoglobin [Mass/volume] in BloodOrdered By: Jacinto Benitez on 03-18-2024 Hemoglobin (Bld) [Mass/Vol] 16.3 g/dL High 11.8-15.4 [facility] Comment on above: Performed By: #### C BC, CMP, HCGQUAL #### [address] Leukocytes [#/volume] correc venkata for nucleated erythrocytes in Blood by Automated counOrdered By: Jacinto Benitez on 03-18-2024 WBC corrected for nucl RBC Auto (Bld) [#/Vol] 18.5 10*3/uL 3.8-11.6 [facility] Leukocytes [#/volume] in Blo od by Automated countOrdered By: Jacinto Benitez on 03-18-2024 WBC (Bld) [#/Vol] 18.5 10*3/uL High 3.8-11.6 [facility] Comment on above: Performed By: #### C BC, CMP, HCGQUAL #### [facility] [address] [place] [address] Lymphocytes [#/volume] in Bl ood by Automated countOrdered By: Jacinto Benitez on 03-18-2024 Lymphocytes (Bld) [#/Vol] 3.9 10*3/uL Normal 1.00-4.8 [facility] Comment on above: Performed By: #### C BC, CMP, HCGQUAL #### [address] Lymphocytes/100 leukocytes i n Blood by Automated countOrdered By: Jacinto Benitez on 03-18-2024 Lymphocytes/100 WBC (Bld) 20.9 % Normal . [facility] Comment on above: Performed By: #### C BC, CMP, HCGQUAL #### [address] MCH [Entitic mass] by Automa venkata countOrdered By: Jacinto Benitez on 03-18-2024 MCH (RBC) [Entitic mass] 28.2 pg Normal 24.7-34.3 [facility] Comment on above: Performed By: #### C BC, CMP, HCGQUAL #### [address] MCHC Auto (RBC) [Mass/Vol]Or dered By: Jacinto Benitez on 03-18-2024 MCHC (RBC) [Mass/Vol] 33.9 g/dL 32.0-35.0 [facility] MCV [Entitic volume] by Auto mated countOrdered By: Jacinto Benitez on 03-18-2024 MCV (RBC) [Entitic vol] 83.2 fL Normal 80-100 [facility] Comment on above: Performed By: #### C BC, CMP, HCGQUAL #### [address] Monocyte distribution width [Entitic volume] in Blood by AutomatedOrdered By: Jacinto Benitez on 03-18-2024 Monocyte distribution width Auto (Bld) [Entitic vol] 16.34 % 0.00-20.00 [facility] Neutrophils [#/volume] in Bl ood by Automated countOrdered By: Jacinto Benitez on 03-18-2024 Neutrophils (Bld) [#/Vol] 12.7 10*3/uL High 1.8-7.7 [facility] Comment on above: Performed By: #### C BC, CMP, HCGQUAL #### [facility] [address] [place] [address] No Panel InformationOrdered By: Jacinto Benitez on 03-18-2024 Estimated GFR (CKD-EPI) > 60.0 mL/Min [facility] Creatinine Clearance (Chem 120.98 [facility] Nucleated erythrocytes [Pres ence] in Blood by Automated countOrdered By: Jacinto Benitez on 03-18-2024 Nucleated RBC Auto Ql (Bld) 0.1 /100{WBC} 0-0.5 [facility] Platelet mean volume [Entiti c volume] in Blood by Automated countOrdered By: Jacinto Benitez on 03-18-2024 Platelet mean volume (Bld) [Entitic vol] 8.5 fL Normal 6.3-10.7 [facility] Comment on above: Performed By: #### C BC, CMP, HCGQUAL #### [address] Platelets [#/volume] in Bloo d by Automated countOrdered By: Jacinto Benitez on 03-18-2024 Platelets (Bld) [#/Vol] 358 10*3/uL Normal 150-450 [facility] Comment on above: Performed By: #### C BC, CMP, HCGQUAL #### [facility] [address] [place] [address] Potassium [Moles/volume] in Serum or PlasmaOrdered By: Jacinto Benitez on 03-18-2024 Potassium [Moles/Vol] See comment 3.5-5.1 [facility] Comment on above: Specimen hemolyzed, redraw requestedResults calledat 2349 on 03/18/24 Protein [Mass/volume] in Ser um or PlasmaOrdered By: Jacinto Benitez on 03-18-2024 Protein [Mass/Vol] 8.1 g/dL Normal 6.4-8.9 [facility] Comment on above: Performed By: #### C BC, CMP, HCGQUAL #### [address] Serum globulin measurement b y calculation (mass/volume)Ordered By: Jacinto Benitez on 03-18-2024 Globulin (S) [Mass/Vol] 2.8 g/dL [facility] Comment on above: Performed By: #### C BC, CMP, HCGQUAL #### [address] Serum or plasma albumin/glob ulin mass ratioOrdered By: Jacinto Benitez on 03-18-2024 Albumin/Globulin [Mass ratio] 1.9 {ratio} [facility] Comment on above: Performed By: #### C BC, CMP, HCGQUAL #### [address] Serum or plasma anion gap de terminationOrdered By: Jacinto Benitez on 03-18-2024 Anion gap [Moles/Vol] TNP [facility] Comment on above: Test not performed Sodium [Moles/volume] in Ser um or PlasmaOrdered By: Jacinto Benitez on 03-18-2024 Sodium [Moles/Vol] 134 mmol/L Low 136-145 [facility] Comment on above: Performed By: #### C BC, CMP, HCGQUAL #### [address] Urea nitrogen [Mass/volume] in Serum or PlasmaOrdered By: Jacinto Benitez on 03-18-2024 Urea nitrogen [Mass/Vol] 27 mg/dL High 7-25 [facility] Comment on above: Performed By: #### C BC, CMP, HCGQUAL #### [address] CBC w/ Auto Diffon 4 Basophils/100 WBC (Bld) 0.4 % Normal 0.0-2.0 [facility] Comment on above: Performed By: #### 2 663986, 03657463, 5234662, 4506514 ####[address] [address] Basophils/Leukocytes Auto (Bld) [Pure # fraction] 0.1 E9/L Normal 0.0-0.2 [facility] Comment on above: Performed By: #### 2 716685, 51553556, 4843682, 5506510 ####[address] [address] Eosinophils (Bld) [#/Vol] 0.0 E9/L Normal 0.0-0.5 [facility] Comment on above: Performed By: #### 2 469208, 46568865, 3481806, 8701230 ####[address] [address] Eosinophils/100 WBC (Bld) 0.3 % Normal 0.0-8.0 [facility] Comment on above: Performed By: #### 2 887239, 45225444, 4719923, 6133543 ####[address] [address] Erythrocyte distribution width (RBC) [Ratio] 14.1 % Normal 10.9-14.2 [facility] Comment on above: Performed By: #### 2 746819, 33417304, 0195231, 3039300 ####[address] [address] Hematocrit (Bld) [Volume fraction] 44.0 % Normal 34.0-46.0 [facility] Comment on above: Performed By: #### 2 719133, 79327303, 2973475, 3034227 ####[address] [address] Hemoglobin (Bld) [Mass/Vol] 14.4 g/dL Normal 12.0-16.0 [facility] Comment on above: Performed By: #### 2 804851, 79702371, 5611878, 8966459 ####[address] [place] [address] Lymphocytes (Bld) [#/Vol] 2.2 E9/L Normal 1.0-4.0 [facility] Comment on above: Performed By: #### 2 150225, 66105925, 9612647, 0189094 ####[address] [address] Lymphocytes/100 WBC (Bld) 15.8 % Normal 14.0-50.0 [facility] Comment on above: Performed By: #### 2 193507, 79873005, 1501902, 5973874 ####[address] [address] MCH (RBC) [Entitic mass] 27.8 pg Normal 27.0-34.0 [facility] Comment on above: Performed By: #### 2 530236, 84776105, 1141642, 5676317 ####[address] [address] MCHC (RBC) [Mass/Vol] 32.6 g/dL Normal 31.4-36.0 [facility] Comment on above: Performed By: #### 2 481279, 97021032, 6465995, 9596768 ####[address] [address] MCV (RBC) [Entitic vol] 85.2 fL Normal 80.0-100.0 [facility] Comment on above: Performed By: #### 2 522268, 36059892, 1048461, 1615189 ####[address] [address] Monocytes (Bld) [#/Vol] 1.1 E9/L High 0.2-1.0 [facility] Comment on above: Performed By: #### 2 725764, 51970276, 8226593, 1528784 ####[address] [address] Neutrophils (Bld) [#/Vol] 10.6 E9/L High 2.0-7.5 [facility] Comment on above: Performed By: #### 2 907239, 17454887, 6194343, 8532574 ####[address] [address] Neutrophils/100 WBC (Bld) 75.9 % High 36.0-75.0 [facility] Comment on above: Performed By: #### 2 626681, 16951213, 3045809, 1345635 ####[address] [address] Platelet mean volume (Bld) [Entitic vol] 8.4 fL Normal 6.4-10.8 [facility] Comment on above: Performed By: #### 2 097113, 07181906, 7150876, 8563665 ####[address] [address] Platelets (Bld) [#/Vol] 276.0 E9/L Normal 150.0-500. 0 [facility] Comment on above: Performed By: #### 2 433920, 51235114, 5206315, 2660253 ####[address] [address] RBC (Bld) [#/Vol] 5.2 E12/L Normal 4.3-5.9 [facility] Comment on above: Performed By: #### 2 830098, 63363750, 7008527, 7745691 ####[address] [address] WBC corrected for nucl RBC Auto (Bld) [#/Vol] 14.0 E9/L High 4.0-11.0 [facility] Comment on above: Performed By: #### 2 724900, 61666767, 2714992, 3136578 ####[address] [address] CHEMISTRYOrdered By: SYSTEM SYSTEM on 03-15-2024 Albumin [...] Chloride [Moles/Vol] 99 mmol/L Low 101-[address] [facility] Comment on above: Performed By: #### 2 292087, 33162824, 8360034, 7010864 ####[facility] [address] [place] [address] Potassium [Moles/Vol] 3.3 mmol/L Low 3.5-5.3 [facility] Comment on above: Performed By: #### 2 366965, 61393317, 4089244, 4737461 ####[facility] [address] [place] [address] Sodium [Moles/Vol] 137 mmol/L Normal 135-145 [facility] Comment on above: Performed By: #### 2 674571, 96725771, 5778322, 3495198 ####[facility] [address] [place] [address] Anion gap [Moles/Vol] 22 mmol/L High 6-16 [facility] Comment on above: Performed By: #### 2 494189, 49706998, 7315043, 3732138 ####[facility] [address] [place] [address] CO2 [Moles/Vol] 19 mmol/L Low 21-31 [facility] Comment on above: Performed By: #### 2 750482, 35836420, 2879666, 3667287 ####[facility] [address] [place] [address] Albumin [Mass/Vol] 5.0 g/dL Normal 3.3-5.0 [facility] Comment on above: Performed By: #### 2 876901, 65482013, 9002237, 9583831 ####[facility] [address] [place] [address] Albumin/Globulin (S) [Mass conc ratio] 1.8 Normal 1.1-2.2 [facility] Comment on above: Performed By: #### 2 144707, 59224810, 5109332, 5507501 ####[facility] [address] [place] [address] ALP [Catalytic activity/Vol] 69 Int._Unit/L Normal 21-98 [facility] Comment on above: Performed By: #### 2 190074, 07909859, 6372706, 2901805 ####[facility] [address] [place] [address] ALT No additional P-5'-P [Catalytic activity/Vol] 31 Int._Unit/L Normal 6-46 [facility] Comment on above: Performed By: #### 2 893936, 14591383, 3366369, 6975980 ####[facility] [address] [place] [address] AST [Catalytic activity/Vol] 19 Int._Unit/L Normal 5-43 [facility] Comment on above: Performed By: #### 2 555953, 53636068, 5089936, 6008200 ####[facility] [address] [facility] [place] [address] Bilirubin [Mass/Vol] 0.8 mg/dL Normal 0.0-1.1 [facility] Comment on above: Performed By: #### 2 431816, 41243330, 6395497, 5474721 ####[facility] [address] [place] [address] Calcium [Mass/Vol] 10.4 mg/dL Normal 8.9-11.1 [facility] Comment on above: Performed By: #### 2 788850, 95997486, 7009964, 5777830 ####[facility] [address] [place] [address] Creatinine [Mass/Vol] 0.8 mg/dL Normal 0.5-1.3 [facility] Comment on above: Performed By: #### 2 856736, 70077520, 1715443, 9346613 ####[facility] [address] [place] [address] Globulin (S) [Mass/Vol] 2.8 g/dL Normal 1.4-4.0 [facility] Comment on above: Performed By: #### 2 464221, 05365133, 2645062, 5556278 ####[facility] [address] [place] [address] Glucose [Mass/Vol] 86 mg/dL Normal 55-199 [facility] Comment on above: Performed By: #### 2 776969, 53789723, 1393048, 6860337 ####[facility] [address] [place] [address] Protein [Mass/Vol] 7.8 g/dL Normal 6.0-7.8 [facility] Comment on above: Performed By: #### 2 628669, 93529885, 7287704, 5955927 ####[facility] [address] [place] [address] Urea nitrogen [Mass/Vol] 24 mg/dL High 5-21 [facility] Comment on above: Performed By: #### 2 457467, 90176991, 2725066, 4824786 ####[facility] [address] [place] [address] Urea nitrogen/Creatinine [Mass ratio] 30 No Units High 10-20 [facility] Comment on above: Performed By: #### 2 916160, 56677187, 8627031, 3335279 ####[facility] [address] [place] [address] Chest w/ Contraston 03-15 CT Chest [...] 300 Contrast amount in ml's: 100 Normal [facility] Consent for Treatmenton 02-26 Consent for Treatment [id number] Normal [facility] Discharge Instructionson Discharge Instructions [id number] Normal [facility] ED Clinical Summaryon 2023 ED Clinical Summary (Inserted Image. Vesta ble to display) [place] [id number] ED Clinical Summary Person Information Name: PILI PARIKH/Nathan Age: 19 Years : 2005 Sex: Female Language: Monegasque PCP: MODESTA ARCHIBALD Marital Status: Single Visit [...] 03/15/2024 13:49:40 03/15/2024 13:49:40 03/15/2024 13:49:40 ADDRESS: [address] [place] [phone] PHYS DOC NOTES: MEDICAL INFORMATION: Prescriptions Given: Medications to Continue with No Changes Other Medications acetaminophen-hydrocodone (Waddy 325 mg-5 mg oral tablet) 1 Tablets [...] symptoms. DIAGNOSIS: 1:Nausea and vomiting; 2:Pneumomediastinum Normal [facility] ED Note-Physicianon 03-15-20 ED Note-Physician Basic Information Time Seen: Ebony Birmingham, August Carboen 03/15/2024 10:35 Chief Complaint pt. states Dr. [...] and Complexity of Problems Differential Diagnosis: [] [facility] Data External documents reviewed: [] My EKG [...] Return to (more content not included)... Normal [facility] Comment on above: Result Comment: Elec [...] added (diluted fruit juice). ? Eat bland, hbas-ti-ixjcbk foods in small amounts as you are able. These foods include bananas, applesauce, rice, lean meats, toast, and crackers. ? Avoid fluids that contain a lot of sugar or caffeine, such as energy drinks, sports drinks, and soda. ? Avoid alcohol. ? Avoid spicy or fatty foods. General instructions ? Take wsap-niy-dsihokj and prescription medicines only as told by your health care provider. ? Drink enough fluid to keep your urine pale yellow. ? Wash your hands often using soap and water for at least 20 seconds. If soap and water are not available, use hand p 3 armament/ordnance ima technician. ? Make sure that everyone in your [...] and drinking to prevent dehydration. ? Take mbvv-cjp-vizspci and prescription medicines only as told by [...] provider. Document Revised: 05/21/2022 Document Reviewed: 05/21/2022 [employer] Patient Education ? 2022 [employer]. Radiology Pneumomediastinum Pneumomediastinum is the presence of [...] marijuana. Spontane (more content not included)... Normal [facility] ED Patient Summaryon 024 ED Patient Summary (Inserted Image. Vesta ble to display) [place] [id number] Patient Discharge Instructions Person Information Name: PILI PARIKH Age: 19 Years Arrival Date: 03/15/2024 10:32:10 Discharge Diagnosis: 1:Nausea and vomiting; 2:Pneumomediastinum Primary Care Physician: MODESTA ARCHIBALD Provider Information Primary Provider: August Beck M.D. Advanced Teacher Adventure Education:None The exam and treatment you received in the Emergency Department were for an urgent problem and are not intended as complete care. It is important that you follow up with a doctor, nurse practitioner, or physician?s fast food assistant restaurant manager for ongoing care. If your symptoms become worse or you do not improve as expected and you are unable to reach your usual health care provider, you should return to the Emergency Department. We are available 24 hours a day. JL PILI has been given the following list of [...] opioids can be used to help relieve mcnttxey-wq-bdjkgj pain and are often prescribed following a [...] be strugg (more content not included)... Normal [facility] HEMATOLOGYOrdered By: SYSTEM SYSTEM on 03-15-2024 [...] 03-15-2024 Magnesium [Mass/Vol] 2.2 mg/dL Normal 1.3-2.4 [facility] Comment on above: Performed By: #### 2 969640, 74544420, 9826333, 4995563 ####[facility] [address] [place] [address] eGFRon 03-15-2024 eGFR 108 mL/min/1.73 m2 Normal >=59 [facility] Comment on above: Order Comment: Order added by Discern Expert. Performed By: #### 2 810413, 03275248, 4256710, 4774724 ####[facility] [address] [place] [address] CT Abdomen/Pelvis w/ Contras ton 03-14-2024 CT [...] 300 Contrast amount in ml's: [address] [facility] [address] Chest w/ Contraston 03-14 CT [...] 300 Contrast amount in ml's: [address] [facility] [address] Head or Brain w/o Contras [...] M.D. Transcribed by: KIRA Technologist: RAVEN Normal [facility] CT Spine Cervical w/o Contra ston [...] M.D. Transcribed by: KIRA Technologist: RAVEN Normal [facility] EMS Documentationon 03-14-20 EMS Documentation Please click on link to see report Normal [facility] Comment on above: Result Comment: Miss ing Attachment - total size limit for all attachments exceeded [email or web address].pdf Can be viewed in source system XR Chest 2 Viewson XR Chest 2 [...] KIRA Technologist: RAVEN Technical Comments Radiation Dose: esdras Abdullahi in mGy = na DAP = na Normal [facility] ABO/Rhon 03-13-2024 ABO/Rh Positive Invalid Interpretation Code [facility] Comment on above: Performed By: #### 2 166734, 21585595, 46264378, 36022480 ####[facility] [address] [place] [address] ABO/Rh History Checkon 03-13 ABO/Rh History Check Patient discharged prior Normal [facility] Comment on above: Performed By: #### 2 220516, 22981879, 85933398, 76944913 ####[facility] [address] [place] [address] ABSCon 03-13-2024 ABSC Gel Interp Negative Normal [facility] Comment on above: Performed By: #### 2 997421, 50028868, 89922313, 81378213 ####[facility] [address] [place] [address] B hCG Qualon 03-13-2024 Beta HCG ( test) Ql Negative Normal [facility] Comment on above: Performed By: #### 2 2978725, 0412191, 5482258, 8620852, 0375774, 29562184, 69644762, 2873718, 3134907 ####[facility] [address] [place] [address] BLOOD BANKOrdered By: Scarlet Lindquist on 03-13-2024 ABO/Rh Interp Positive Invalid Interpretation Code [facility] BB Subsection ABSC Gel Interp Negative (03/13/24 6:53 PM) Normal [facility] BB Subsection BMPon 03-13-2024 Anion gap [Moles/Vol] 16 mmol/L Normal 05-13 [facility] Comment on above: Performed By: #### 2 5060012, 6832677, 7718339, 2112810, 1650055, 64573188, 86310573, 2510321, 6677646 ####[facility] [address] [place] [address] Calcium [Mass/Vol] 10.8 mg/dL Normal 8.9-11.1 [facility] Comment on above: Performed By: #### 2 6909326, 7865762, 2990154, 5313249, 8224525, 24352602, 67526204, 4319194, 8817267 ####[facility] [address] [place] [address] Chloride [Moles/Vol] 105 mmol/L Normal 101-111 [facility] Comment on above: Performed By: #### 2 4798157, 8410259, 0710104, 4318382, 0454602, 47972464, 19801477, 0270599, 2541451 ####[facility] [address] [place] [address] CO2 [Moles/Vol] 25 mmol/L Normal 21-31 [facility] Comment on above: Performed By: #### 2 0445575, 1840454, 6894109, 4870568, 2151121, 94546007, 81302479, 8962727, 6107928 ####[facility] [address] [place] [address] Creatinine [Mass/Vol] 0.9 mg/dL Normal 0.5-1.3 [facility] Comment on above: Performed By: #### 2 0838881, 3093350, 6929567, 3709822, 2090497, 16539508, 35362781, 3916660, 4378101 ####[facility] [address] [place] [address] Glucose [Mass/Vol] 100 mg/dL Normal 55-199 [facility] Comment on above: Performed By: #### 2 8881019, 8897187, 4646285, 4864113, 4612254, 03129044, 59392874, 3766645, 3725390 ####[facility] [address] [place] [address] Potassium [Moles/Vol] 3.3 mmol/L Low 3.5-5.3 [facility] Comment on above: Performed By: #### 2 6391460, 9047965, 0572919, 0666125, 1955197, 52267051, 34878323, 7425553, 9624095 ####[facility] [address] [place] [address] Sodium [Moles/Vol] 143 mmol/L Normal 135-145 [facility] Comment on above: Performed By: #### 2 4663503, 5277564, 0542899, 5666293, 5312687, 04276806, 57497861, 5494107, 6836087 ####[facility] [address] [place] [address] Urea nitrogen [Mass/Vol] 24 mg/dL High 5-21 [facility] Comment on above: Performed By: #### 2 5423468, 4705245, 2586700, 1892223, 7785469, 54124102, 90431270, 6374781, 3003857 ####[place] [address] [place] [address] Urea nitrogen/Creatinine [Mass ratio] 27 No Units High 10-20 [facility] Comment on above: Performed By: #### 2 8812310, 0278901, 4274517, 3842880, 4387725, 83475435, 96931703, 3403763, 1707992 ####[place] [address] [place] [address] Blood Bank ID#on 03-13-2024 BBID# [id number] Invalid Interpretation Code [facility] Comment on above: Performed By: #### 2 963322, 85171898, 14784155, 78516642 ####[facility] [address] [place] [address] CBC w/ Auto Diffon 4 Basophils/100 WBC (Bld) 0.4 % Normal 0.0-2.0 [facility] Comment on above: Performed By: #### 2 7330515, 9740994, 0196718, 6793043, 1091528, 08864628, 68497919, 4272833, 1094197 ####[address] [address] Basophils/Leukocytes Auto (Bld) [Pure # fraction] 0.1 E9/L Normal 0.0-0.2 [facility] Comment on above: Performed By: #### 2 4928601, 7840269, 5542893, 7130456, 4002412, 88186215, 06269542, 5915969, 0656023 ####[place] [address] Eosinophils (Bld) [#/Vol] 0.0 E9/L Normal 0.0-0.5 [facility] Comment on above: Performed By: #### 2 6417295, 1744835, 8714067, 0580853, 2243354, 73928864, 41777991, 3901979, 2405980 ####[address] [address] Eosinophils/100 WBC (Bld) 0.1 % Normal 0.0-8.0 [facility] Comment on above: Performed By: #### 2 4328157, 3453150, 0618049, 3451774, 2018045, 15884846, 91726799, 9632472, 8878883 ####[address] [address] Erythrocyte distribution width (RBC) [Ratio] 14.4 % High 10.9-14.2 [facility] Comment on above: Performed By: #### 2 4792678, 6444254, 7933071, 3312192, 6496406, 13486283, 68593043, 0149640, 8216917 ####[address] [address] Hematocrit (Bld) [Volume fraction] 42.5 % Normal 34.0-46.0 [facility] Comment on above: Performed By: #### 2 7117010, 2827232, 0661829, 8274468, 1698410, 03653738, 64246371, 4808630, 4682937 ####[address] [place] [address] Hemoglobin (Bld) [Mass/Vol] 14.0 g/dL Normal 12.0-16.0 [facility] Comment on above: Performed By: #### 2 5469226, 9254513, 6420589, 9789388, 3313196, 20487764, 27849858, 3887063, 6633381 ####[address] [address] Lymphocytes (Bld) [#/Vol] 2.3 E9/L Normal 1.0-4.0 [facility] Comment on above: Performed By: #### 2 4837478, 9033590, 6424871, 7376225, 7791872, 93177916, 82529627, 6403564, 3919368 ####[address] [address] Lymphocytes/100 WBC (Bld) 11.8 % Low 14.0-50.0 [facility] Comment on above: Performed By: #### 2 7907174, 4009528, 9096986, 1486823, 4726628, 38203142, 51411132, 1419200, 7219115 ####[address] [address] MCH (RBC) [Entitic mass] 27.6 pg Normal 27.0-34.0 [facility] Comment on above: Performed By: #### 2 3484212, 1761633, 6370749, 1986251, 9141240, 95949032, 93216491, 3899860, 3016807 ####[address] [address] MCHC (RBC) [Mass/Vol] 32.9 g/dL Normal 31.4-36.0 [facility] Comment on above: Performed By: #### 2 0843096, 6957848, 2150206, 4976058, 5495674, 22937584, 55638659, 1289562, 7692836 ####[address] [place] [address] MCV (RBC) [Entitic vol] 83.8 fL Normal 80.0-100.0 [facility] Comment on above: Performed By: #### 2 2757229, 9443936, 8712098, 2810147, 5989369, 97374590, 26889182, 1362839, 8235654 ####[address] [address] Monocytes (Bld) [#/Vol] 1.4 E9/L High 0.2-1.0 [facility] Comment on above: Performed By: #### 2 4561484, 3307580, 4598325, 0538386, 1422813, 03182665, 94527440, 6924041, 9504139 ####[address] [address] Neutrophils (Bld) [#/Vol] 15.5 E9/L High 2.0-7.5 [facility] Comment on above: Performed By: #### 2 6220807, 3874403, 3609046, 8972284, 5400280, 35454377, 09797041, 6320760, 8259178 ####[address] [address] Neutrophils/100 WBC (Bld) 80.6 % High 36.0-75.0 [facility] Comment on above: Performed By: #### 2 9327486, 6012012, 2516422, 4364300, 7386483, 88890459, 32808807, 4433851, 9896766 ####[address] [address] Platelet mean volume (Bld) [Entitic vol] 8.4 fL Normal 6.4-10.8 [facility] Comment on above: Performed By: #### 2 2679122, 9563711, 8519897, 7807800, 6103581, 91065787, 19110345, 5826249, 7423097 ####[address] [place] [address] Platelets (Bld) [#/Vol] 356.0 E9/L Normal 150.0-500. 0 [facility] Comment on above: Performed By: #### 2 9289607, 9382510, 3309650, 9426483, 4248093, 92970381, 54738254, 7639280, 7188575 ####[facility] [address] [place] [address] RBC (Bld) [#/Vol] 5.1 E12/L Normal 4.3-5.9 [facility] Comment on above: Performed By: #### 2 9843742, 8052887, 0045661, 1966065, 7851824, 64175036, 37333765, 9325868, 6709419 ####[facility] [address] [place] [address] WBC corrected for nucl RBC Auto (Bld) [#/Vol] 19.3 E9/L High 4.0-11.0 [facility] Comment on above: Result Comment: Slid e review performed Performed By: #### 2 4866100, 4500225, 5649640, 0607828, 4403867, 46065502, 92682193, 1976803, 4762472 ####[facility] [address] [place] [address] CHEMISTRYOrdered By: SYSTEM SYSTEM on 03-13-2024 Albumin [...] Sensitivity Troponin I Instructions For Use, Sugar [place], June 2018) Urea nitrogen [Mass/Vol] 24 mg/dL High 5 - 21 mg/dL Remisol Chem Urea nitrogen/Creatinine [Mass ratio] 27 mg/mg High 10 - 20 Rem[facility] Chem COAGULATIONOrdered By: Jefe elvia Mccain on 03-13-2024 aPTT Coag (PPP) [Time] 32.8 s Normal 25.1 - 36.5 second(s) [facility] Auto Coag Comment on above: Interpretive Data: Piero chaudhary 15 days - 4 weeks 1 - [...] the same coagulation reagent and instrumentation as [facility]. Currently there are no coagulation studies available worldwide for children to 14 days, and no normal ranges. Heparin therapeutic range (represented by Anti-Factor Xa activity of 0.2 - 0.4 U/mL) corresponds to PTT of 56.6 - 109.0 sec. INR Coag (PPP) [Relative time] 1.11 {INR} Invalid Interpretation Code [facility] Auto Coag Comment on above: Interpretive Data: I NR results are specifically intended to assess patients stabilized on long-term Anticoagulation therapy suggested INR s Less Intensive Anticoagulation 2.0 3.0 Conventional Range 3.0 4.5 PT Coag (PPP) [Time] 12.4 s Normal 9.4 - 1 2.5 second(s) [facility] Auto Coag Comment on above: Interpretive Data: [...] the same coagulation reagent and instrumentation as [facility]. Currently there are no coagulation studies available worldwide for children to 14 days, and no normal ranges. Consent for Treatmenton 02-26 Consent for Treatment [id number]#1.00TIFF Normal [facility] Discharge Instructionson Discharge Instructions [id number]#[id number] Normal [facility] ED Clinical Summaryon 2023 ED Clinical Summary (Inserted Image. Vesta ble to display) [place] [id number] ED Clinical Summary Person Information Name: PILI PARIKH/[facility] Age: 19 Years : 2005 Sex: Female Language: Monegasque PCP: MODESTA ARCHIBALD Marital Status: Single Visit [...] 03/13/2024 22:27:59 03/13/2024 22:27:59 03/13/2024 22:27:59 ADDRESS: [address] [facility] [id number] PHYS DOC NOTES: MEDICAL INFORMATION: Prescriptions Given: New Medications [facility]/pharmacy #[id number], [address], [place] [id number], [phone] acetaminophen-hydrocodone (Waddy 325 mg-5 mg oral tablet) 1 Tablets [...] EDUCATION INFORMATION: Instructions: Nausea and Vomiting, Adult, Udpg-uv-Vxzg; Muscle Strain, Dfpk-fo-Uoki Follow up: With: Address: When: MODESTA ARCHIBALD [address] [place], [place] [phone] Business (1) In 3 days 03/16/2024 Comments: [...] Back strain; N&V (nausea and vomiting) Normal [facility] ED Note-Physicianon 03-13-20 ED Note-Physician Basic Information Time Seen: Gasper [...] EDT, STA (more content not included)... Normal [facility] Comment on above: Result Comment: Elec tronically Signed By: Gasper Lang PA-C\.br\Date and Time Signed: 03/13/24 18:45 EDT\.br\Electronically Co-Signed By: Isaak Francis DO\.br\Date and Time Co-Signed: 03/13/24 22:19 EDT\.br\Electronically Co-Signed By: Jacinto Roman DO\.br\Date and Time Co-Signed: 03/16/24 07:37 EDT ED Patient Education Noteon 03-13-2024 ED Patient Education Note Gastroenterology Nausea and [...] ? Low-calorie sports drinks. ? Eat bland, louh-ym-tkihsk foods in small amounts as you are able, such as: ? Bananas. ? Applesauce. ? Rice. ? Low-fat (lean) meats. ? [place]. ? Crackers. ? Avoid drinking fluids that have a lot of sugar or caffeine in them. This includes energy drinks, sports drinks, and soda. ? Avoid alcohol. ? Avoid spicy or fatty foods. General instructions ? Take sydm-zil-ygdcvjs and prescription medicines only as told by your doctor. ? Drink enough fluid to keep your pee (urine) pale yellow. ? Wash your hands often with soap and water for at least 20 seconds. If you cannot use soap and water, use hand p 3 armament/ordnance ima technician. ? Make sure that everyone in your [...] doctor about eating and drinking. ? Take oikp-opx-avemcqp and prescription medicines only as told by your doctor. ? Contact your doctor if your symptoms get worse or you have new symptoms. ? Keep all follow-up visits. This information is not intended to replace advice given to you by your health care provider. Make sure you discuss any questions you have with your health care provider. Document Revised: 05/21/2022 Document Reviewed: 05/21/2022 [employer] Patient Education ? 2022 [employer] Orthopedics Muscle Strain A muscle strain, [...] your m (more content not included)... Normal [facility] ED Patient Summaryon 024 ED Patient Summary (Inserted Image. Vesta ble to display) [address] [address] Patient Discharge Instructions Person Information Name: PILI PARIKH Age: 19 Years Arrival Date: 03/13/2024 17:33:02 Discharge Diagnosis: 1:Fall down stairs; Abnormal CT scan, chest; Back strain; N&V (nausea and vomiting) Primary Care Physician: MODESTA ARCHIBALD Provider Information Primary Provider: Jacinto Roman DO Advanced Teacher Adventure Education:Gasper Lang PA-C The exam and treatment you received in the Emergency Department were for an urgent problem and are not intended as complete care. It is important that you follow up with a doctor, nurse practitioner, or physician?s fast food assistant restaurant manager for ongoing care. If your symptoms [...] With: Address: When: MODESTA ARCHIBALD [address], [place] [phone] Business (1) In 3 days 03/16/2024 Comments: [...] Patient Education Materials: Nausea and Vomiting, Adult, Zhyw-oa-Uljb; Muscle Strain, Daai-bs-Fawl A MESSAGE TO ALL PATIENTS REGARDING OPIOIDS PRESCRIPTION OPIOIDS: WHAT YOU NEED TO KNOW Prescription opioids can be used to help relieve zkucwfty-bj-grtmdf pain and are often prescribed following a [...] them juan (more content not included)... Normal [facility] ED Traumaon 03-13-2024 ED Trauma [id number]#[id number] Normal [facility] Ethanolon 03-13-2024 Ethanol Lvl <10 Normal <=11 [facility] Comment on above: Performed By: #### 2 933510 ####[facility] [address] [place] [address] HEMATOLOGYOrdered By: SYSTEM SYSTEM on 03-13-2024 Basophils/100 [...] Result Comment: Slid e review performed Hep [facility] Panelon 03-13-2024 Albumin [Mass/Vol] 5.4 g/dL High 3.3-5.0 [facility] Comment on above: Performed By: #### 2 5532129, 7734188, 0671310, 5815575, 9829903, 10767618, 82059395, 6409269, 6339835 ####[facility] [address] [place] [address] Albumin/Globulin (S) [Mass conc ratio] 1.8 Normal 1.1-2.2 [facility] Comment on above: Performed By: #### 2 8898282, 7607259, 2413106, 9492099, 0145788, 55692387, 98378970, 8340816, 1047060 ####[facility] [address] [place] [address] ALP [Catalytic activity/Vol] 82 Int._Unit/L Normal 21-98 [facility] Comment on above: Performed By: #### 2 9331369, 3537298, 8299434, 6187028, 6497364, 68868040, 25436401, 3497196, 4800678 ####[place] [address] [place] [address] ALT No additional P-5'-P [Catalytic activity/Vol] 44 Int._Unit/L Normal 6-46 [facility] Comment on above: Performed By: #### 2 4243204, 5680725, 0807017, 1852075, 9499127, 20351584, 74814227, 1176707, 9529065 ####[address] [address] AST [Catalytic activity/Vol] 23 Int._Unit/L Normal 5-43 [facility] Comment on above: Performed By: #### 2 6142295, 6366268, 7201493, 9370747, 0584180, 52909674, 90928152, 9736023, 8847419 ####[place] [address] Bilirubin [Mass/Vol] 0.8 mg/dL Normal 0.0-1.1 [facility] Comment on above: Performed By: #### 2 2494173, 9650750, 3493151, 0301738, 0627938, 83681787, 50579314, 5481191, 4897745 ####[address] [address] Bilirubin.direct [Mass/Vol] 0.2 mg/dL Normal 0.0-0.4 [facility] Comment on above: Performed By: #### 2 9248867, 1542721, 8020437, 9369870, 2756462, 96526712, 83389514, 5200738, 7052200 ####[place] [address] Bilirubin.indirect [Mass or moles/Vol] 0.6 mg/dL Normal 0.1-0.9 [facility] Comment on above: Performed By: #### 2 7698537, 8375237, 8530891, 4991167, 6846375, 38892235, 17909749, 2408479, 9427431 ####[place] [address] [place] [address] Globulin (S) [Mass/Vol] 3.0 g/dL Normal 1.4-4.0 [facility] Comment on above: Performed By: #### 2 8036950, 4563805, 9626153, 6762553, 3384633, 16232166, 44458041, 0538255, 9966565 ####[place] [address] [place] [address] Protein [Mass/Vol] 8.4 g/dL High 6.0-7.8 [facility] Comment on above: Performed By: #### 2 7348563, 3893650, 5933057, 2003811, 4263754, 11370239, 77177991, 6800234, 9557427 ####[address] [address] Lactic Acidon 03-13-2024 Lactic Acid Lvl 1.7 mmol/L Normal 0.5-2.2 [facility] Comment on above: Performed By: #### 2 6452652, 1480151, 0767704, 5897554, 0297455, 61283806, 88824837, 7565321, 5012650 ####[address] [address] Lipase Levelon 03-13-2024 Lipase [Catalytic activity/Vol] 14 U/L Normal 13-58 [facility] Comment on above: Performed By: #### 2 1502289, 6424095, 1414662, 9841784, 5447096, 16289026, 88658081, 7258378, 8741752 ####[address] [address] Monitor Recordon 03-13-2024 Monitor Record [id number]#1.00TIFF Normal [facility] Monitor Record [id number]#1.00TIFF Normal [facility] PT & PTTon 03-13-2024 aPTT Coag (PPP) [Time] 32.8 second(s) Normal 25.1-36.5 [facility] Comment on above: Result Comment: Para [...] the same coagulation reagent and instrumentation as [facility]. Currently there are no coagulation studies available worldwide for children to 14 days, and no normal ranges. Heparin therapeutic range (represented by Anti-Factor Xa activity of 0.2 - 0.4 U/mL) corresponds to PTT of 56.6 - 109.0 sec. Performed By: #### 2 5426136, 7170443, 2405829, 9906160, 8749688, 74713295, 00533436, 5152914, 7329614 ####[facility] [address] [place] [address] INR Coag (PPP) [Relative time] 1.11 {INR} Invalid Interpretation Code [facility] Comment on above: Result Comment: INR results are specifically intended to assess patients stabilized on long-term Anticoagulation therapy suggested INR?s ?Less Intensive Anticoagulation? 2.0 ? 3.0 Conventional Range 3.0 ? 4.5 Performed By: #### 2 1423251, 9785043, 2579321, 4029190, 3873411, 79970084, 87848917, 8573735, 4803879 ####[facility] [address] [place] [address] PT Coag (PPP) [Time] 12.4 second(s) Normal 9.4-12.5 [facility] Comment on above: Result Comment: 15 [...] the same coagulation reagent and instrumentation as [facility]. Currently there are no coagulation studies available worldwide for children to 14 days, and no normal ranges. Performed By: #### 2 4439353, 2728876, 0705296, 7666234, 0563465, 89029954, 60795934, 4566303, 7308952 ####[facility] [address] [place] [address] Pre-Arrival Noteon Pre-Arrival Note Pre-Arrival Summary Name: LOS Current Date: 03/13/2024 17:34:24 EDT Gender: Female Date of : Age: 19 Pre-Arrival Type: EMS ETA: 03/13/2024 17:59:00 EDT Primary Care Physician: Presenting Problem: fall down 10 stairs Pre-Arrival User: Payal Robison RN Referring Source: Location: Completion Date/Time: 03/13/2024 17:29:00 [facility] Emergency Department Pre-Hospital Report Form Vital Signs: 127/83; 66; 17; 96%; GCS 15 Pre-Hospital Report: Treatment in Route: C-COLLAR Response to Treatment: Misc. Issues: Normal [facility] Prescriptions/Work Noteson 0 03-13-2024 Prescriptions/Work Notes [id number]#1.00TIFF Normal [facility] RAD - Preliminary Cat Scan R eporton 03-13-2024 RAD - Preliminary Cat Scan Report [id number] Normal [facility] SEROLOGYOrdered By: Virginia Mccain on 03-13-2024 Beta HCG ( test) Ql Negative (03/13/24 6:53 PM) Normal [facility] [place] Troponinon 03-13-2024 Troponin 6.10 pg/mL Low 10.10-27.1 0 [facility] Comment on above: Result Comment: The 95% CI (Confidence Interval) PPV (Positive Predictive Value) for myocardial infarction in females is 38 pg/mL, in males 51 pg/mL. The results should be used in conjunction with clinical conditions of myocardial infarction. (Access High Sensitivity Troponin I Instructions For Use, [employer], June 2018) Performed By: #### 2 [id number] ####[facility] [id number] [place] [address] eGFRon 03-13-2024 eGFR 94 mL/min/1.73 m2 Normal >=59 [facility] Comment on above: Order Comment: rosemary t o run. phlebotomists notified of recollect by message. [id number] 03/13/2024 18:28:21 EDTOrder added by Discern Expert. Performed By: #### 2 [id number] ####[facility] [id number] [place] [address] Amphetamine Screen Ql (U)Ord ered By: Familia Christian on 05-25-2023 Amphetamines Ql (U) Negative Negative [facility] Barbiturates [Presence] in U rine by Screen methodOrdered By: Familia Christian on 05-25-2023 Barbiturates Screen Ql (U) Negative Negative [facility] Benzodiazepines Screen Ql (U )Ordered By: Familia Christian on 05-25-2023 Benzodiazepines Ql (U) Negative Negative [facility] Benzoylecgonine [Presence] i n Urine by Screen methodOrdered By: Familia Christian on 05-25-2023 Benzoylecgonine Screen Ql (U) Negative Negative [facility] Cannabinoids [Presence] in U rine by Screen methodOrdered By: Familia Christian on 05-25-2023 Cannabinoids Screen Ql (U) Positive Negative [facility] Comment on above: These are unconfirme d results and should not be used for legal purposes. Drug Cut-Off Concentration: AMPH 1000 ng/mL NIKOLAS 200 ng/mL SHRAVAN 200 ng/mL COCM 300 ng/mL OP 300 ng/mL PCP 25 ng/mL THC 20 ng/mL HCG ( test) IA.rapi d Ql (U)Ordered By: Familia Christian on 05-25-2023 HCG ( test) Ql (U) Negative [facility] Opiates [Presence] in Urine by Screen methodOrdered By: Familia Christian on 05-25-2023 Opiates Screen Ql (U) Negative Negative [facility] Phencyclidine Screen Ql (U)O rdered By: Familia Christian on 05-25-2023 Phencyclidine Ql (U) Negative Negative [facility] COVID-19 Detected/Not Detect edOrdered By: Modesta Chand on 03-15-2023 SARS-CoV-2 (COVID-19) RNA JANAK+non-probe Ql (Nph) Not detected Not Detecte [facility] Comment on above: This is a duplicate RP2.1 COVID (PCR) result to be used for statistical tracking purpose only. Respiratory pathogens DNA an d RNA panel - Nasopharynx by JANAK with non-probe detectionOrdered By: Modesta Chand on 03-15-2023 Respiratory pathogens DNA and RNA panel JANAK+non-probe (Nph) [facility] Basophils Auto (Bld) [#/Vol] Ordered By: Anette Stout on 01-07-2023 Basophils (Bld) [#/Vol] 0.0 10*3/uL 0.0-0.1 [facility] Basophils/100 WBC Auto (Bld) Ordered By: Anette Stout on 01-07-2023 Basophils/100 WBC (Bld) 0.4 % . [facility] Eosinophils Auto (Bld) [#/Vo l]Ordered By: Anette Stout on 01-07-2023 Eosinophils (Bld) [#/Vol] 0.7 10*3/uL 0.0-0.7 [facility] Eosinophils/100 WBC Auto (Bl d)Ordered By: Anette Stout on 01-07-2023 Eosinophils/100 WBC (Bld) 5.5 % . [facility] Erythrocyte distribution wid th Auto (RBC) [Ratio]Ordered By: Anette Stout on 01-07-2023 Erythrocyte distribution width (RBC) [Ratio] 13.5 % 11.9-15.3 [facility] Estimated glomerular filtrat ion rate (GFR) non- AmericanOrdered By: Anette Stout on 01-07-2023 GFR/1.73 sq M.predicted among non-blacks MDRD (S/P/Bld) [Vol rate/Area] > 60 mL/Min [facility] Hematocrit Auto (Bld) [Volum e fraction]Ordered By: Anette Stout on 01-07-2023 Hematocrit (Bld) [Volume fraction] 41.5 % 36.0-46.0 [facility] Hemoglobin [Mass/volume] in BloodOrdered By: Anette Stout on 01-07-2023 Hemoglobin (Bld) [Mass/Vol] 14.0 g/dL 12.0-16.0 [facility] Leukocytes [#/volume] correc venkata for nucleated erythrocytes in Blood by Automated counOrdered By: Anette Stout on 01-07-2023 WBC corrected for nucl RBC Auto (Bld) [#/Vol] 12.1 10*3/uL 4.5-13.5 [facility] Lymphocytes Auto (Bld) [#/Vo l]Ordered By: Anette Stout on 01-07-2023 Lymphocytes (Bld) [#/Vol] 2.5 10*3/uL 1.20-4.8 [facility] Lymphocytes/100 WBC Auto (Bl d)Ordered By: Anette tSout on 01-07-2023 Lymphocytes/100 WBC (Bld) 20.9 % . [facility] MCH Auto (RBC) [Entitic mass ]Ordered By: Anette Stout on 01-07-2023 MCH (RBC) [Entitic mass] 28.8 pg 25.0-35.0 [facility] MCHC Auto (RBC) [Mass/Vol]Or dered By: Anette Stout on 01-07-2023 MCHC (RBC) [Mass/Vol] 33.7 g/dL 31.0-37.0 [facility] MCV Auto (RBC) [Entitic vol] Ordered By: Anette Stout on 01-07-2023 MCV (RBC) [Entitic vol] 85.5 fL 78-102 [facility] Monocytes Auto (Bld) [#/Vol] Ordered By: Anette Stout on 01-07-2023 Monocytes (Bld) [#/Vol] 0.9 10*3/uL 0.1-1.00 [facility] Monocytes/100 WBC Auto (Bld) Ordered By: Anette Stout on 01-07-2023 Monocytes/100 WBC (Bld) 7.5 % . [facility] Neutrophils Auto (Bld) [#/Vo l]Ordered By: Anette Stout on 01-07-2023 Neutrophils (Bld) [#/Vol] 8.0 10*3/uL 1.2-7.7 [facility] Neutrophils/100 WBC Auto (Bl d)Ordered By: Anette Stout on 01-07-2023 Neutrophils/100 WBC (Bld) 65.7 % . [facility] No Panel InformationOrdered By: Anette Stout on 01-07-2023 > 60 mL/Min [facility] 113.92 [facility] Nucleated erythrocytes [Pres ence] in Blood by Automated countOrdered By: Anette Stout on 01-07-2023 Nucleated RBC Auto Ql (Bld) 0.1 /100{WBC} 0-0.5 [facility] Platelet mean volume Auto (B ld) [Entitic vol]Ordered By: Anette Stout on 01-07-2023 Platelet mean volume (Bld) [Entitic vol] 8.6 fL 6.3-10.7 [facility] Platelets Auto (Bld) [#/Vol] Ordered By: Anette Stout on 01-07-2023 Platelets (Bld) [#/Vol] 222 10*3/uL 150-450 [facility] RBC Auto (Bld) [#/Vol]Ordere d By: Anette Stout on 01-07-2023 RBC (Bld) [#/Vol] 4.85 10*6/uL 4.10-5.10 [facility] Serum or plasma anion gap de terminationOrdered By: Aentte Stout on 01-07-2023 Anion gap [Moles/Vol] N/A [facility] Serum or plasma calcium tammy urement (mass/volume)Ordered By: Anette Stout on 01-07-2023 Calcium [Mass/Vol] 8.5 mg/dL 8.2-10.2 [facility] Serum or plasma chloride judy surement (moles/volume)Ordered By: Anette Stout on 01-07-2023 Chloride [Moles/Vol] 103 mmol/L 95-114 [facility] Serum or plasma creatinine m easurement with calculation of estimated glomerular filtrOrdered By: Anette Stout on 01-07-2023 Creatinine and Glomerular filtration rate.predicted panel (S/P/Bld) 0.77 mg/dL 0.44-1.03 [facility] Serum or plasma glucose tammy urement (mass/volume)Ordered By: Anette Stout on 01-07-2023 Glucose [Mass/Vol] 90 mg/dL 70-100 [facility] Serum or plasma potassium me asurement (moles/volume)Ordered By: Eliana Bautista on 01-07-2023 Potassium [Moles/Vol] 3.2 mmol/L 3.5-5.1 [facility] Serum or plasma sodium measu rement (moles/volume)Ordered By: Anette Stout on 01-07-2023 Sodium [Moles/Vol] 134 mmol/L 136-146 [facility] Serum or plasma total carbon dioxide measurement (moles/volume)Ordered By: Anette Stout on 01-07-2023 CO2 [Moles/Vol] 23.4 mmol/L 22.0-30.0 [facility] Serum or plasma urea nitroge n measurement (mass/volume)Ordered By: Anette Stout on 01-07-2023 Urea nitrogen [Mass/Vol] 8 mg/dL 9-23 [facility] WBC Auto (Bld) [#/Vol]Ordere d By: Anette Stout on 01-07-2023 WBC (Bld) [#/Vol] 12.1 10*3/uL 4.5-13.5 [facility] Amphetamine Screen Ql (U)Ord ered By: Anette Stout on 01-06-2023 Amphetamines Ql (U) Negative Negative [facility] Automated erythrocytes count in urine sediment (number/area)Ordered By: Rd Brown on 01-06-2023 RBC Auto (Urine sed) [#/Area] None seen [HPF] 0-4 [facility] Automated leukocytes count i n urine sediment (number/area)Ordered By: Rd Brown on 01-06-2023 WBC Auto (Urine sed) [#/Area] 20-49 [HPF] 0-4 [facility] Automated urine hyaline cast s count (number/volume)Ordered By: Rd Brown on 01-06-2023 Hyaline casts Auto (U) [#/Vol] None seen [LPF] 0-1 [facility] Barbiturates [Presence] in U rineOrdered By: Anette Stout on 01-06-2023 Barbiturates Ql (U) Negative Negative [facility] Basophils Auto (Bld) [#/Vol] Ordered By: Rd Brown on 01-06-2023 Basophils (Bld) [#/Vol] 0.0 10*3/uL 0.0-0.1 [facility] Basophils/100 WBC Auto (Bld) Ordered By: Rd Brown on 01-06-2023 Basophils/100 WBC (Bld) 0.3 % . [facility] Benzodiazepines [Presence] i n UrineOrdered By: Anette Stout on 02-09-2023 Benzodiazepines Ql (U) Negative [facility] Bilirubin Test strip Ql (U)O rdered By: Rd Brown on 01-06-2023 Bilirubin Ql (U) Negative Negative [facility] Body fluid albumin measureme nt (mass/volume)Ordered By: Rd Brown on 01-06-2023 Albumin (Body fld) [Mass/Vol] 4.9 g/dL 3.2-5.5 [facility] Cannabinoids [Presence] in U rine by Screen methodOrdered By: Anette Stout on 01-06-2023 Cannabinoids Screen Ql (U) Positive Negative [facility] Casts typing in urine sedime nt by light microscopyOrdered By: Rd Brown on 01-06-2023 Casts LM Nom (Urine sed) None seen [LPF] None Seen [facility] Color Auto (U)Ordered By: Andrew Brown on 01-06-2023 Color (U) Yellow Yellow [facility] Eosinophils Auto (Bld) [#/Vo l]Ordered By: Rd Brown on 01-06-2023 Eosinophils (Bld) [#/Vol] 0.4 10*3/uL 0.0-0.7 [facility] Eosinophils/100 WBC Auto (Bl d)Ordered By: Rd Brown on 01-06-2023 Eosinophils/100 WBC (Bld) 2.3 % . [facility] Erythrocyte distribution wid th Auto (RBC) [Ratio]Ordered By: Rd Brown on 01-06-2023 Erythrocyte distribution width (RBC) [Ratio] 13.5 % 11.9-15.3 [facility] Estimated glomerular filtrat ion rate (GFR) non- AmericanOrdered By: Rd Brown on 01-06-2023 GFR/1.73 sq M.predicted among non-blacks MDRD (S/P/Bld) [Vol rate/Area] > 60 mL/Min [facility] Globulin Calc (S) [Mass/Vol] Ordered By: Rd Brown on 01-06-2023 Globulin (S) [Mass/Vol] 2.9 g/dL [facility] HCG ( test) IA.rapi d Ql (U)Ordered By: Rd Brown on 01-06-2023 HCG ( test) Ql (U) Negative [facility] Hematocrit Auto (Bld) [Volum e fraction]Ordered By: Rd Brown on 01-06-2023 Hematocrit (Bld) [Volume fraction] 48.3 % 36.0-46.0 [facility] Hemoglobin [Mass/volume] in BloodOrdered By: Rd Brown on 01-06-2023 Hemoglobin (Bld) [Mass/Vol] 16.2 g/dL 12.0-16.0 [facility] Ketones Auto test strip (U) [Mass/Vol]Ordered By: Rd Brown on 01-06-2023 Ketones (U) [Mass/Vol] 4+ Negative [facility] Leukocytes [#/volume] correc venkata for nucleated erythrocytes in Blood by Automated counOrdered By: Rd Brown on 01-06-2023 WBC corrected for nucl RBC Auto (Bld) [#/Vol] 17.7 10*3/uL 4.5-13.5 [facility] Lymphocytes Auto (Bld) [#/Vo l]Ordered By: Rd Brown on 01-06-2023 Lymphocytes (Bld) [#/Vol] 3.5 10*3/uL 1.20-4.8 [facility] Lymphocytes/100 WBC Auto (Bl d)Ordered By: Rd Brown on 01-06-2023 Lymphocytes/100 WBC (Bld) 19.9 % . [facility] MCH Auto (RBC) [Entitic mass ]Ordered By: Rd Brown on 01-06-2023 MCH (RBC) [Entitic mass] 28.7 pg 25.0-35.0 [facility] MCHC Auto (RBC) [Mass/Vol]Or dered By: Rd Brown on 01-06-2023 MCHC (RBC) [Mass/Vol] 33.6 g/dL 31.0-37.0 [facility] MCV Auto (RBC) [Entitic vol] Ordered By: Rd Brown on 01-06-2023 MCV (RBC) [Entitic vol] 85.4 fL 78-102 [facility] Monocyte distribution width [Entitic volume] in Blood by AutomatedOrdered By: Rd Brown on 01-06-2023 Monocyte distribution width Auto (Bld) [Entitic vol] 15.43 % 0.00-20.00 [facility] Monocytes Auto (Bld) [#/Vol] Ordered By: Rd Brown on 01-06-2023 Monocytes (Bld) [#/Vol] 1.3 10*3/uL 0.1-1.00 [facility] Monocytes/100 WBC Auto (Bld) Ordered By: Rd Brown on 01-06-2023 Monocytes/100 WBC (Bld) 7.4 % . [facility] Neutrophils Auto (Bld) [#/Vo l]Ordered By: Rd Brown on 01-06-2023 Neutrophils (Bld) [#/Vol] 12.4 10*3/uL 1.2-7.7 [facility] Neutrophils/100 WBC Auto (Bl d)Ordered By: Rd Brown on 01-06-2023 Neutrophils/100 WBC (Bld) 70.1 % . [facility] Nitrite Test strip Ql (U)Ord ered By: Rd Brown on 01-06-2023 Nitrite Ql (U) Negative Negative [facility] No Panel InformationOrdered By: Anette Stout on 01-06-2023 Negative Negative [facility] No Panel InformationOrdered By: Rd Brown on 01-06-2023 > 60 mL/Min [facility] 31.0 U/L 22-51 [facility] 102.00 [facility] Nucleated erythrocytes [Pres ence] in Blood by Automated countOrdered By: Rd Brown on 01-06-2023 Nucleated RBC Auto Ql (Bld) 0.1 /100{WBC} 0-0.5 [facility] Phencyclidine Screen Ql (U)O rdered By: Anette Stout on 01-06-2023 Phencyclidine Ql (U) Negative Negative [facility] Platelet mean volume Auto (B ld) [Entitic vol]Ordered By: Rd Brown on 01-06-2023 Platelet mean volume (Bld) [Entitic vol] 8.5 fL 6.3-10.7 [facility] Platelets Auto (Bld) [#/Vol] Ordered By: Rd Brown on 01-06-2023 Platelets (Bld) [#/Vol] 296 10*3/uL 150-450 [facility] Protein Auto test strip (U) [Mass/Vol]Ordered By: Rd Brown on 01-06-2023 Protein (U) [Mass/Vol] 100 mg/dL Negative [facility] Protein [Mass/volume] in Ser um or PlasmaOrdered By: Rd Brown on 01-06-2023 Protein [Mass/Vol] 7.8 g/dL 6.1-7.9 [facility] RBC Auto (Bld) [#/Vol]Ordere d By: Rd Brown on 01-06-2023 RBC (Bld) [#/Vol] 5.65 10*6/uL 4.10-5.10 [facility] Serum or plasma alanine florez otransferase measurement without P-5'-P (enzymatic activiOrdered By: Rd Brown on 01-06-2023 ALT No additional P-5'-P [Catalytic activity/Vol] 20 U/L 10-60 [facility] Serum or plasma albumin/glob ulin mass ratioOrdered By: Rd Brown on 01-06-2023 Albumin/Globulin [Mass ratio] 1.7 {ratio} [facility] Serum or plasma alkaline justin sphatase measurement (enzymatic activity/volume)Ordered By: Rd Brown on 01-06-2023 ALP [Catalytic activity/Vol] 66 U/L 32-92 [facility] Serum or plasma anion gap de terminationOrdered By: Rd Brown on 01-06-2023 Anion gap [Moles/Vol] 19.4 mmol/L 6.0-15.0 [facility] Serum or plasma aspartate am inotransferase measurement (enzymatic activity/volume)Ordered By: Rd Brown on 01-06-2023 AST [Catalytic activity/Vol] 20 U/L 10-42 [facility] Serum or plasma calcium tammy urement (mass/volume)Ordered By: Rd Brown on 01-06-2023 Calcium [Mass/Vol] 9.8 mg/dL 8.2-10.2 [facility] Serum or plasma chloride judy surement (moles/volume)Ordered By: Rd Brown on 01-06-2023 Chloride [Moles/Vol] 91 mmol/L 95-114 [facility] Serum or plasma creatinine m easurement with calculation of estimated glomerular filtrOrdered By: Rd Brown on 01-06-2023 Creatinine and Glomerular filtration rate.predicted panel (S/P/Bld) 0.86 mg/dL 0.44-1.03 [facility] Serum or plasma glucose tammy urement (mass/volume)Ordered By: Rd Brown on 01-06-2023 Glucose [Mass/Vol] 80 mg/dL 70-100 [facility] Serum or plasma potassium me asurement (moles/volume)Ordered By: Rd Brown on 01-06-2023 Potassium [Moles/Vol] 2.7 mmol/L 3.5-5.1 [facility] Serum or plasma sodium measu rement (moles/volume)Ordered By: Rd Brown on 01-06-2023 Sodium [Moles/Vol] 132 mmol/L 136-146 [facility] Serum or plasma total biliru bin measurement (mass/volume)Ordered By: Rd Brown on 01-06-2023 Bilirubin [Mass/Vol] 1.5 mg/dL 0.3-1.2 [facility] Serum or plasma total carbon dioxide measurement (moles/volume)Ordered By: Rd Brown on 01-06-2023 CO2 [Moles/Vol] 24.3 mmol/L 22.0-30.0 [facility] Serum or plasma urea nitroge n measurement (mass/volume)Ordered By: Rd Brown 01-06-2023 Urea nitrogen [Mass/Vol] 19 mg/dL 9-23 [facility] Specific gravity Auto test s trip (U) [Rel density]Ordered By: Rd Brown on 01-06-2023 Specific gravity (U) [Rel density] 1.027 1.001-1.03 0 [facility] Squamous epithelial cells de tection in urine sediment by light microscopyOrdered By: Rd Brown on 01-06-2023 Epithelial cells.squamous LM Ql (Urine sed) 10-19 [HPF] 0-2 [facility] Troponin I.cardiac [Mass/vol ume] in Serum or Plasma by High sensitivity methodOrdered By: Federico Randolph on 02-09-2023 Troponin I.cardiac High sensitivity method [Mass/Vol] 6 pg/mL 0-15 [facility] Urine bacteria detection by automated methodOrdered By: Rd Brown on 01-06-2023 Bacteria Auto Ql (U) 1+ None Seen [facility] Urine clarity by refractomet ry automatedOrdered By: Rd Brown on 01-06-2023 Clarity Refractometry automated (U) Cloudy Clear [facility] Urine cocaine detectionOrder ed By: Anette Stout on 01-06-2023 Cocaine Ql (U) Negative Negative [facility] Urine glucose measurement by automated test strip (mass/volume)Ordered By: Rd Brown on 01-06-2023 Glucose Auto test strip (U) [Mass/Vol] Normal mg/dL Normal [facility] Urine hemoglobin detection b y automated test stripOrdered By: Rd Brown on 01-06-2023 Hemoglobin Auto test strip Ql (U) 3+ Negative [facility] Urine lactic acid measuremen tOrdered By: Rd Brown on 01-06-2023 Lactate (U) [Moles/Vol] 1.6 mmol/L 0.5-2.2 [facility] Urine leukocyte esterase det ection by automated test stripOrdered By: Rd Brown on 01-06-2023 Leukocyte esterase Auto test strip Ql (U) 2+ Negative [facility] Urobilinogen Auto test strip (U) [Mass/Vol]Ordered By: Rd Brown on 01-06-2023 Urobilinogen (U) [Mass/Vol] Normal mg/dL Normal [facility] WBC Auto (Bld) [#/Vol]Ordere d By: Rd Brown on 01-06-2023 WBC (Bld) [#/Vol] 17.7 10*3/uL 4.5-13.5 [facility] pH Auto test strip (U)Ordere d By: Rd Brown on 01-06-2023 pH (U) 6.5 [pH] 5.0-9.0 [facility] Albumin [Mass/volume] in Ser um or PlasmaOrdered By: Ravi Arguello on 01-02-2023 Albumin [Mass/Vol] 5.0 g/dL 3.2-5.5 [facility] Automated erythrocytes count in urine sediment (number/area)Ordered By: Ravi Arguello on 01-02-2023 RBC Auto (Urine sed) [#/Area] 3-4 [HPF] 0-4 [facility] Automated leukocytes count i n urine sediment (number/area)Ordered By: Ravi Arguello on 01-02-2023 WBC Auto (Urine sed) [#/Area] 50-100 [HPF] 0-4 [facility] Automated urine hyaline cast s count (number/volume)Ordered By: Ravi Arguello on 01-02-2023 Hyaline casts Auto (U) [#/Vol] None seen [LPF] 0-1 [facility] Basophils Auto (Bld) [#/Vol] Ordered By: Ravi Arguello on 01-02-2023 Basophils (Bld) [#/Vol] 0.1 10*3/uL 0.0-0.1 [facility] Basophils/100 WBC Auto (Bld) Ordered By: Ravi Arguello on 01-02-2023 Basophils/100 WBC (Bld) 0.5 % . [facility] Bilirubin Test strip Ql (U)O rdered By: Ravi Arguello on 01-02-2023 Bilirubin Ql (U) Negative Negative [facility] Casts typing in urine sedime nt by light microscopyOrdered By: Ravi Arguello on 01-02-2023 Casts LM Nom (Urine sed) None seen [LPF] None Seen [facility] Color Auto (U)Ordered By: Gisselle Arguello on 01-02-2023 Color (U) Yellow Yellow [facility] Eosinophils Auto (Bld) [#/Vo l]Ordered By: Ravi Arguello on 01-02-2023 Eosinophils (Bld) [#/Vol] 0.0 10*3/uL 0.0-0.7 [facility] Eosinophils/100 WBC Auto (Bl d)Ordered By: Ravi Arguello on 01-02-2023 Eosinophils/100 WBC (Bld) 0.0 % . [facility] Erythrocyte distribution wid th Auto (RBC) [Ratio]Ordered By: Ravi Arguello on 01-02-2023 Erythrocyte distribution width (RBC) [Ratio] 13.9 % 11.9-15.3 [facility] Estimated glomerular filtrat ion rate (GFR) non- AmericanOrdered By: Ravi Arguello on 01-02-2023 GFR/1.73 sq M.predicted among non-blacks MDRD (S/P/Bld) [Vol rate/Area] > 60 mL/Min [facility] Globulin Calc (S) [Mass/Vol] Ordered By: Ravi Arguello on 01-02-2023 Globulin (S) [Mass/Vol] 2.9 g/dL [facility] HCG ( test) IA.rapi d Ql (U)Ordered By: Ravi Arguello on 01-02-2023 HCG ( test) Ql (U) Negative [facility] Hematocrit Auto (Bld) [Volum e fraction]Ordered By: Ravi Arguello on 01-02-2023 Hematocrit (Bld) [Volume fraction] 42.1 % 36.0-46.0 [facility] Hemoglobin [Mass/volume] in BloodOrdered By: Ravi Arguello on 01-02-2023 Hemoglobin (Bld) [Mass/Vol] 14.0 g/dL 12.0-16.0 [facility] Ketones Auto test strip (U) [Mass/Vol]Ordered By: Ravi Arguello on 01-02-2023 Ketones (U) [Mass/Vol] 3+ [facility] Leukocytes [#/volume] correc venkata for nucleated erythrocytes in Blood by Automated counOrdered By: Ravi Arguello on 01-02-2023 WBC corrected for nucl RBC Auto (Bld) [#/Vol] 14.1 10*3/uL 4.5-13.5 [facility] Lymphocytes Auto (Bld) [#/Vo l]Ordered By: Ravi Arguello on 01-02-2023 Lymphocytes (Bld) [#/Vol] 1.4 10*3/uL 1.20-4.8 [facility] Lymphocytes/100 WBC Auto (Bl d)Ordered By: Ravi Arguello on 01-02-2023 Lymphocytes/100 WBC (Bld) 10.1 % . [facility] MCH Auto (RBC) [Entitic mass ]Ordered By: Ravi Arguello on 01-02-2023 MCH (RBC) [Entitic mass] 28.6 pg 25.0-35.0 [facility] MCHC Auto (RBC) [Mass/Vol]Or dered By: Ravi Arguello on 01-02-2023 MCHC (RBC) [Mass/Vol] 33.2 g/dL 31.0-37.0 [facility] MCV Auto (RBC) [Entitic vol] Ordered By: Ravi Arguello on 01-02-2023 MCV (RBC) [Entitic vol] 86.2 fL 78-102 [facility] Monocyte distribution width [Entitic volume] in Blood by AutomatedOrdered By: Ravi Arguello on 01-02-2023 Monocyte distribution width Auto (Bld) [Entitic vol] 16.52 % 0.00-20.00 [facility] Monocytes Auto (Bld) [#/Vol] Ordered By: Ravi Arguello on 01-02-2023 Monocytes (Bld) [#/Vol] 1.0 10*3/uL 0.1-1.00 [facility] Monocytes/100 WBC Auto (Bld) Ordered By: Ravi Arguello on 01-02-2023 Monocytes/100 WBC (Bld) 7.0 % . [facility] Neutrophils Auto (Bld) [#/Vo l]Ordered By: Ravi Arguello on 01-02-2023 Neutrophils (Bld) [#/Vol] 11.6 10*3/uL 1.2-7.7 [facility] Neutrophils/100 WBC Auto (Bl d)Ordered By: Ravi Arguello on 01-02-2023 Neutrophils/100 WBC (Bld) 82.4 % . [facility] Nitrite Test strip Ql (U)Ord ered By: Ravi Arguello on 01-02-2023 Nitrite Ql (U) Negative Negative [facility] No Panel InformationOrdered By: Ravi Arguello on 01-02-2023 > 60 mL/Min [facility] 29.0 U/L 22-51 [facility] 86.85 [facility] Nucleated erythrocytes [Pres ence] in Blood by Automated countOrdered By: Ravi Arguello on 01-02-2023 Nucleated RBC Auto Ql (Bld) 0.0 /100{WBC} 0-0.5 [facility] Platelet mean volume Auto (B ld) [Entitic vol]Ordered By: Ravi Arguello on 01-02-2023 Platelet mean volume (Bld) [Entitic vol] 8.4 fL 6.3-10.7 [facility] Platelets Auto (Bld) [#/Vol] Ordered By: Ravi Arguello on 01-02-2023 Platelets (Bld) [#/Vol] 299 10*3/uL 150-450 [facility] Protein Auto test strip (U) [Mass/Vol]Ordered By: Ravi Arguello on 01-02-2023 Protein (U) [Mass/Vol] 100 mg/dL Negative Fi [facility] Protein [Mass/volume] in Ser um or PlasmaOrdered By: Ravi Arguello on 01-02-2023 Protein [Mass/Vol] 7.9 g/dL 6.1-7.9 [facility] RBC Auto (Bld) [#/Vol]Ordere d By: Ravi Arguello on 01-02-2023 RBC (Bld) [#/Vol] 4.89 10*6/uL 4.10-5.10 [facility] Serum or plasma alanine florez otransferase measurement without P-5'-P (enzymatic activiOrdered By: Ravi Arguello on 01-02-2023 ALT No additional P-5'-P [Catalytic activity/Vol] 26 U/L 10-60 [facility] Serum or plasma albumin/glob ulin mass ratioOrdered By: Ravi Arguello on 01-02-2023 Albumin/Globulin [Mass ratio] 1.7 {ratio} [facility] Serum or plasma alkaline justin sphatase measurement (enzymatic activity/volume)Ordered By: Ravi Arguello on 01-02-2023 ALP [Catalytic activity/Vol] 60 U/L 32-92 [facility] Serum or plasma anion gap de terminationOrdered By: Ravi Arguello on 01-02-2023 Anion gap [Moles/Vol] 16.4 mmol/L 6.0-15.0 Fi [facility] Serum or plasma aspartate am inotransferase measurement (enzymatic activity/volume)Ordered By: Ravi Arguello on 01-02-2023 AST [Catalytic activity/Vol] 32 U/L 10-42 [facility] Serum or plasma calcium tammy urement (mass/volume)Ordered By: Ravi Arguello on 01-02-2023 Calcium [Mass/Vol] 9.8 mg/dL 8.2-10.2 [facility] Serum or plasma chloride judy surement (moles/volume)Ordered By: Ravi Arguello on 01-02-2023 Chloride [Moles/Vol] 106 mmol/L 95-114 [facility] Serum or plasma creatinine m easurement with calculation of estimated glomerular filtrOrdered By: Ravi Arguello on 01-02-2023 Creatinine and Glomerular filtration rate.predicted panel (S/P/Bld) 1.01 mg/dL 0.44-1.03 [facility] Serum or plasma glucose tammy urement (mass/volume)Ordered By: Ravi Arguello on 01-02-2023 Glucose [Mass/Vol] 123 mg/dL 70-100 [facility] Serum or plasma potassium me asurement (moles/volume)Ordered By: Ravi Arguello on 01-02-2023 Potassium [Moles/Vol] 3.2 mmol/L 3.5-5.1 [facility] Serum or plasma sodium measu rement (moles/volume)Ordered By: Ravi Arguello on 01-02-2023 Sodium [Moles/Vol] 142 mmol/L 136-146 [facility] Serum or plasma total biliru bin measurement (mass/volume)Ordered By: Ravi Arguello on 01-02-2023 Bilirubin [Mass/Vol] 0.8 mg/dL 0.3-1.2 [facility] Serum or plasma total carbon dioxide measurement (moles/volume)Ordered By: Ravi Arguello on 01-02-2023 CO2 [Moles/Vol] 22.8 mmol/L 22.0-30.0 [facility] Serum or plasma urea nitroge n measurement (mass/volume)Ordered By: Ravi Arguello on 01-02-2023 Urea nitrogen [Mass/Vol] 22 mg/dL 9-23 [facility] Specific gravity Auto test s trip (U) [Rel density]Ordered By: Ravi Arguello on 01-02-2023 Specific gravity (U) [Rel density] 1.036 1.001-1.03 0 [facility] Squamous epithelial cells de tection in urine sediment by light microscopyOrdered By: Ravi Arguello on 01-02-2023 Epithelial cells.squamous LM Ql (Urine sed) Innumerable [HPF] 0-2 [facility] Urine bacteria detection by automated methodOrdered By: Ravi Arguello on 01-02-2023 Bacteria Auto Ql (U) 3+ None Seen [facility] Urine clarity by refractomet ry automatedOrdered By: Ravi Arguello on 01-02-2023 Clarity Refractometry automated (U) Turbid Clear [facility] Urine culture routineOrdered By: Ravi Arguello on 01-02-2023 Bacteria identified Cx Nom (U) [facility] Urine glucose measurement by automated test strip (mass/volume)Ordered By: Ravi Arguello on 01-02-2023 Glucose Auto test strip (U) [Mass/Vol] Normal mg/dL Normal [facility] Urine hemoglobin detection b y automated test stripOrdered By: Ravi Arguello on 01-02-2023 Hemoglobin Auto test strip Ql (U) Negative Negative [facility] Urine leukocyte esterase det ection by automated test stripOrdered By: Ravi Arguello on 01-02-2023 Leukocyte esterase Auto test strip Ql (U) 3+ Negative [facility] Urobilinogen Auto test strip (U) [Mass/Vol]Ordered By: Ravi Arguello on 01-02-2023 Urobilinogen (U) [Mass/Vol] Normal mg/dL Normal [facility] WBC Auto (Bld) [#/Vol]Ordere d By: Ravi Arguello on 01-02-2023 WBC (Bld) [#/Vol] 14.1 10*3/uL 4.5-13.5 [facility] pH Auto test strip (U)Ordere d By: Ravi Arguello on 01-02-2023 pH (U) 6.0 [pH] 5.0-9.0 [facility] CULTURE URINEon 01-01-2023 CULTURE URINE Culture Observations : LIGHT GROWTH OF MIXED GENITAL JORI. NO POTENTIAL PATHOGENS SEEN. Normal [facility] Comment on above: Performed By: #### U RCX #### [facility] [address] [place] [address] Dr. Dacia Ackerman Covid-19 PCR ([facility])on SARS-CoV-2 (COVID-19) RNA JANAK+probe Ql (Unsp spec) Not detected Normal NOT DETECTED [facility] Comment on above: Result Comment: When [...] for this test is supported by the Computer Forensics Examiner of Health and Human Service's declaration that [...] used). Performed By: #### C VDTBH #### [facility] [address] [place] [address] Dr. Dacia Ackerman DRUG SCREEN RAPID (URINE)on 01-01-2023 AMP Negative Normal NEGATIVE [facility] Comment on above: Performed By: #### D RUGRPD #### [facility] [address] [place] [address] Dr. Dacia Ackerman BAR Negative Normal NEGATIVE [facility] Comment on above: Performed By: #### D RUGRPD #### [facility] [address] [place] [address] Dr. Dacia Ackerman BUP Negative Normal NEGATIVE [facility] Comment on above: Performed By: #### D RUGRPD #### [facility] [address] [place] [address] Dr. Dacia Ackerman BZO Negative Normal NEGATIVE [facility] Comment on above: Performed By: #### D RUGRPD #### [facility] [address] [address] [address] Dacia Ackerman MELINA Negative Normal NEGATIVE [facility] Comment on above: Performed By: #### D RUGRPD #### [facility] [address] [place] [address] Dr. Dacia Ackerman CUT-OFFS SEE BELOW Normal [facility] Comment on above: Result Comment: AMP [...] ng/mL Performed By: #### D RUGRPD #### [facility] [address] [place] [address] Dr. Dacia Ackerman DRUG CUT HEADER DRUG CLASS TEST SYST EM CUT-OFF CONCENTRATIONS ARE FOLLOWS: Normal [facility] Comment on above: Performed By: #### D RUGRPD #### [facility] [address] [place] [address] Dr. Dacia Ackerman mAMP Negative Normal NEGATIVE [facility] Comment on above: Performed By: #### D RUGRPD #### [facility] [address] [place] [address] Dr. Dacia Ackerman MTD Negative Normal NEGATIVE [facility] Comment on above: Performed By: #### D RUGRPD #### [facility] [address] [place] [address] Dr. Dacia Ackerman OPI Negative Normal NEGATIVE [facility] Comment on above: Performed By: #### D RUGRPD #### [facility] [address] [place] [address] Dr. Dacia Ackerman OXY Negative Normal NEGATIVE [facility] Comment on above: Performed By: #### D RUGRPD #### [facility] [address] [address] [address] Dacia Ackerman PCP Negative Normal NEGATIVE [facility] Comment on above: Performed By: #### D RUGRPD #### [facility] [address] [place] [address] Dr. Dacia Ackerman PPX Negative Normal NEGATIVE [facility] Comment on above: Performed By: #### D RUGRPD #### [facility] [address] [place] [address] Dr. Dacia Ackerman TCA Negative Normal NEGATIVE [facility] Comment on above: Performed By: #### D RUGRPD #### [facility] [address] [place] [address] Dr. Dacia Ackerman THC Positive Abnormal NEGATIVE [facility] Comment on above: Performed By: #### D RUGRPD #### [facility] [address] [place] [address] Dr. Dacia Ackerman ER URINE PROFILEon 3 Bilirubin Ql (U) SMALL Abnormal NEGATIVE [facility] Comment on above: Performed By: #### P REGU, ERUR, UMICRO #### [facility] [address] [place] [address] Dr. Dacia Ackerman Clarity (U) CLEAR Normal CLEAR [facility] Comment on above: Performed By: #### P REGU, ERUR, UMICRO #### [facility] [address] [place] [address] Dr. Dacia Ackerman Color (U) YELLOW Normal YELLOW [facility] Comment on above: Performed By: #### P REGU, ERUR, UMICRO #### [facility] [address] [place] [address] Dr. Dacia OLIVAS A micrscopic examina tion will be performed if indicated. Normal [facility] Comment on above: Performed By: #### P REGU, ERUR, UMICRO #### [facility] [address] [place] [address] Dr. Dacia Ackerman Glucose Ql (U) Negative Normal NEGATIVE [facility] Comment on above: Performed By: #### P REGU, ERUR, UMICRO #### [facility] [address] [address] [address] Dacia Ackerman Hemoglobin Ql (U) Negative Normal NEGATIVE [facility] Comment on above: Performed By: #### P REGU, ERUR, UMICRO #### [facility] [address] [address] [address] Dacia Ackerman Ketones Ql (U) >=80 Abnormal NEGATIVE [facility] Comment on above: Performed By: #### P REGU, ERUR, UMICRO #### [facility] [address] [place] [address] Dr. Dacia Ackerman LEUKOCYTES TRACE Abnormal NEGATIVE [facility] Comment on above: Performed By: #### P REGU, ERUR, UMICRO #### [facility] [address] [place] [address] Dr. Dacia Ackerman Nitrite Ql (U) Negative Normal NEGATIVE [facility] Comment on above: Performed By: #### P REGU, ERUR, UMICRO #### [facility] [address] [place] [address] Dr. Dacia Ackerman pH (U) 7.5 [pH] Normal 5-9 [facility] Comment on above: Performed By: #### P REGU, ERUR, UMICRO #### [facility] [address] [address] [address] Dacia Ackerman Protein (U) [Mass/Vol] 100 mg/dL Abnormal NEGAT JOAO/ TRACE [facility] Comment on above: Performed By: #### P REGU, ERUR, UMICRO #### [facility] [address] [address] [address] Dacia Ackerman SPEC GRAVITY 1.020 Normal 1.005-<=1. 025 [facility] Comment on above: Performed By: #### P REGU, ERUR, UMICRO #### [facility] [address] [place] [address] Dr. Dacia Ackerman UR MICRO IND INDICATED Normal [facility] Comment on above: Performed By: #### P PAULA ELLINGTON UMICRO #### [facility] [address] [place] [address] Dr. Dacia Ackerman Urobilinogen Qn (U) 1.0 {Kaykay'U}/dL Normal 0.2 - 1. 0 [facility] Comment on above: Performed By: #### P PAULA ELLINGTON UMICRO #### [facility] [address] [place] [address] Dr. Dacia Ackerman INFLUENZA A AND B AGon 01-01 INFLUANEGH SEE BELOW Normal [facility] Comment on above: Result Comment: Nega tive for Flu A protein angiten. Infection due to Flu A cannot be ruled out. Flu A angiten in the sample may be below the detection limit of the test. Performed By: #### I NFLUAB #### [facility] [address] [place] [address] Dr. Dacia Ackerman INFLUBNEGH SEE BELOW Normal [facility] Comment on above: Result Comment: Nega tive for Flu B protein antigen. Infection due to Flu B cannot be ruled out. Flu B antigen in the sample may be below the detection limit of the test. Performed By: #### I NFLUAB #### [facility] [address] [place] [address] Dr. Dacia Ackerman INFLUENZA A AG Negative Normal NEGATIVE SEE COMMENT [facility] Comment on above: Performed By: #### I NFLUAB #### [facility] [address] [place] [address] Dr. Dacia Ackerman INFLUENZA B AG Negative Normal NEGATIVE SEE COMMENT [facility] Comment on above: Performed By: #### I NFLUAB #### [facility] [address] [place] [address] Dr. Dacia Ackerman URon 01-01-2023 , QUAL Negative Normal NEGATIVE [facility] Comment on above: Performed By: #### P PAULA ELLINGTON UMICRO #### [facility] [address] [place] [address] Dr. Dacia Ackerman URINE MICROSCOPIC ONLYon BACTERIA MODERATE Abnormal NONE SEEN [facility] Comment on above: Performed By: #### P REGU, ERUR, UMICRO #### [facility] [address] [place] [address] Dr. Dacia Ackerman Bacteria identified Cx Nom (U) INDICATED Normal [facility] Comment on above: Performed By: #### P REGU, ERUR, UMICRO #### [facility] [address] [place] [address] Dr. Dacia Ackerman CAST NONE SEEN Normal NONE SEEN [facility] Comment on above: Performed By: #### P REGU, ERUR, UMICRO #### [facility] [address] [place] [address] Dr. Dacia Ackerman Crystals LM Nom (Urine sed) NONE SEEN Normal NONE SEEN [facility] Comment on above: Performed By: #### P REGU, ERUR, UMICRO #### [facility] [address] [place] [address] Dr. Dacia Ackerman Epithelial cells LM Ql (Urine sed) MANY Abnormal NONE SEEN /RARE [facility] Comment on above: Performed By: #### P REGU, ERUR, UMICRO #### [facility] [address] [place] [address] Dr. Dacia Ackerman MUCOUS SMALL Abnormal NONE SEEN [facility] Comment on above: Performed By: #### P REGU, ERUR, UMICRO #### [facility] [address] [place] [address] Dr. Dacia Ackerman RBC NONE SEEN Abnormal 0-2 [facility] Comment on above: Performed By: #### P REGU, ERUR, UMICRO #### [facility] [address] [place] [address] Dr. Dacia Ackerman WBC 5-10 Abnormal NONE SEEN [facility] Comment on above: Performed By: #### P REGU, ERUR, UMICRO #### [facility] [address] [place] [address] Dr. Dacia Ackerman XR CHEST 1 Von [...] by: KIA ARVIZU Date: 2023-01-01 13:00 Normal [facility] Automated erythrocytes count in urine sediment (number/area)Ordered By: Federico Randolph on 12-31-2022 RBC Auto (Urine sed) [#/Area] 0-1 [HPF] 0-4 [facility] Automated leukocytes count i n urine sediment (number/area)Ordered By: Federico Randolph on 12-31-2022 WBC Auto (Urine sed) [#/Area] 20-49 [HPF] 0-4 [facility] Bacteria identified Cx Nom ( U)Ordered By: Federico Randolph on 12-31-2022 Urine culture routine Staphylococcus epidermidis [facility] Bilirubin Test strip Ql (U)O rdered By: Federico Randolph on 12-31-2022 Bilirubin Ql (U) Negative Negative [facility] COVID-19 SOFIAOrdered By: Deep Randolph on 12-31-2022 SARS-CoV+SARS-CoV-2 (COVID-19) Ag IA.rapid Ql (Resp) Negative Negative [facility] Casts typing in urine sedime nt by light microscopyOrdered By: Federico Randolph on 12-31-2022 Casts LM Nom (Urine sed) None seen [LPF] None Seen [facility] Color Auto (U)Ordered By: Deep Randolph on 12-31-2022 Color (U) Yellow Yellow [facility] HCG ( test) IA.rapi d Ql (U)Ordered By: Federico Randolph on 12-31-2022 HCG ( test) Ql (U) Negative [facility] Influenza virus A and B anti gen detection by immunoassayOrdered By: Federico Randolph on 12-31-2022 FLUAV+FLUBV Ag IA Ql (Unsp spec) [facility] Ketones Auto test strip (U) [Mass/Vol]Ordered By: Federico Randolph on 12-31-2022 Ketones (U) [Mass/Vol] 3+ Negative Fi [facility] Nitrite Test strip Ql (U)Ord ered By: Federico Randolph on 12-31-2022 Nitrite Ql (U) Negative Negative [facility] No Panel InformationOrdered By: Federico Randolph on 12-31-2022 None seen [LPF] 0-8 [facility] Protein Auto test strip (U) [Mass/Vol]Ordered By: Federico Randolph on 12-31-2022 Protein (U) [Mass/Vol] 100 mg/dL Negative Fi [facility] Specific gravity Auto test s trip (U) [Rel density]Ordered By: Federico Randolph on 12-31-2022 Specific gravity (U) [Rel density] 1.026 1.001-1.03 0 [facility] Squamous epithelial cells de tection in urine sediment by light microscopyOrdered By: Federico Randolph on 12-31-2022 Epithelial cells.squamous LM Ql (Urine sed) Innumerable [HPF] 0-2 [facility] Urine bacteria detection by automated methodOrdered By: Federico Randolph on 12-31-2022 Bacteria Auto Ql (U) 3+ None Seen [facility] Urine clarity by refractomet ry automatedOrdered By: Federico Randolph on 12-31-2022 Clarity Refractometry automated (U) Turbid Clear [facility] Urine glucose measurement by automated test strip (mass/volume)Ordered By: Federico Randolph on 12-31-2022 Glucose Auto test strip (U) [Mass/Vol] Normal mg/dL Normal [facility] Urine hemoglobin detection b y automated test stripOrdered By: Federico Randolph on 12-31-2022 Hemoglobin Auto test strip Ql (U) Negative Negative [facility] Urine leukocyte esterase det ection by automated test stripOrdered By: Federico Randolph on 12-31-2022 Leukocyte esterase Auto test strip Ql (U) 2+ Negative [facility] Urobilinogen Auto test strip (U) [Mass/Vol]Ordered By: Federico Randolph on 12-31-2022 Urobilinogen (U) [Mass/Vol] Normal mg/dL Normal [facility] pH Auto test strip (U)Ordere d By: Federico Randolph on 12-31-2022 pH (U) [pH] 5.0-9.0 [facility] Amphetamine Screen Ql (U)Ord ered By: Corey Newberry on 11-09-2022 Amphetamines Ql (U) Negative Negative [facility] Barbiturates [Presence] in U rineOrdered By: Corey Newberry on 11-09-2022 Barbiturates Ql (U) Negative Negative [facility] Basophils Auto (Bld) [#/Vol] Ordered By: Corey Newberry on 11-09-2022 Basophils (Bld) [#/Vol] 0.0 10*3/uL 0.0-0.1 [facility] Basophils/100 WBC Auto (Bld) Ordered By: Corey Newberry on 11-09-2022 Basophils/100 WBC (Bld) 0.3 % . [facility] Benzodiazepines [Presence] i n UrineOrdered By: Corey Newberry on 11-09-2022 Benzodiazepines Ql (U) Negative [facility] Bilirubin Test strip Ql (U)O rdered By: Corey Newberry on 11-09-2022 Bilirubin Ql (U) Negative Negative [facility] Body fluid albumin measureme nt (mass/volume)Ordered By: Corey Newberry on 11-09-2022 Albumin (Body fld) [Mass/Vol] 4.2 g/dL 3.2-5.5 [facility] Cannabinoids [Presence] in U rine by Screen methodOrdered By: Corey Newberry on 11-09-2022 Cannabinoids Screen Ql (U) Positive Negative [facility] Color Auto (U)Ordered By: Nazia Newberry on 11-09-2022 Color (U) Yellow Yellow [facility] Eosinophils Auto (Bld) [#/Vo l]Ordered By: Corey Newberry on 11-09-2022 Eosinophils (Bld) [#/Vol] 0.1 10*3/uL 0.0-0.7 [facility] Eosinophils/100 WBC Auto (Bl d)Ordered By: Corey Newberry on 11-09-2022 Eosinophils/100 WBC (Bld) 0.8 % . [facility] Erythrocyte distribution wid th Auto (RBC) [Ratio]Ordered By: Corey Newberry on 11-09-2022 Erythrocyte distribution width (RBC) [Ratio] 13.8 % 11.9-15.3 [facility] Estimated glomerular filtrat ion rate (GFR) non- AmericanOrdered By: Corey Newberry on 11-09-2022 GFR/1.73 sq M.predicted among non-blacks MDRD (S/P/Bld) [Vol rate/Area] > 60 mL/Min [facility] Globulin Calc (S) [Mass/Vol] Ordered By: Corey Newberry on 11-09-2022 Globulin (S) [Mass/Vol] 2.4 g/dL [facility] HCG ( test) IA.rapi d Ql (U)Ordered By: Corey Newberry on 11-09-2022 HCG ( test) Ql (U) Negative [facility] Hematocrit Auto (Bld) [Volum e fraction]Ordered By: Corey Newberry on 11-09-2022 Hematocrit (Bld) [Volume fraction] 41.0 % 36.0-46.0 [facility] Hemoglobin [Mass/volume] in BloodOrdered By: Corey Newberry on 11-09-2022 Hemoglobin (Bld) [Mass/Vol] 13.4 g/dL 12.0-16.0 [facility] Ketones Auto test strip (U) [Mass/Vol]Ordered By: Corey Newberry on 11-09-2022 Ketones (U) [Mass/Vol] Negative Negative [facility] Leukocytes [#/volume] correc venkata for nucleated erythrocytes in Blood by Automated counOrdered By: Corey Newberry on 11-09-2022 WBC corrected for nucl RBC Auto (Bld) [#/Vol] 11.7 10*3/uL 4.5-13.5 [facility] Lymphocytes Auto (Bld) [#/Vo l]Ordered By: Corey Newberry on 11-09-2022 Lymphocytes (Bld) [#/Vol] 1.4 10*3/uL 1.20-4.8 [facility] Lymphocytes/100 WBC Auto (Bl d)Ordered By: Corey Newberry on 11-09-2022 Lymphocytes/100 WBC (Bld) 12.1 % . [facility] MCH Auto (RBC) [Entitic mass ]Ordered By: Corey Newberry on 11-09-2022 MCH (RBC) [Entitic mass] 28.1 pg 25.0-35.0 [facility] MCHC Auto (RBC) [Mass/Vol]Or dered By: Corey Newberry on 11-09-2022 MCHC (RBC) [Mass/Vol] 32.8 g/dL 31.0-37.0 [facility] MCV Auto (RBC) [Entitic vol] Ordered By: Corey Newberry on 11-09-2022 MCV (RBC) [Entitic vol] 85.7 fL 78-102 [facility] Monocyte distribution width [Entitic volume] in Blood by AutomatedOrdered By: Corey Newberry on 11-09-2022 Monocyte distribution width Auto (Bld) [Entitic vol] 16.08 % 0.00-20.00 [facility] Monocytes Auto (Bld) [#/Vol] Ordered By: Corey Newberry on 11-09-2022 Monocytes (Bld) [#/Vol] 0.5 10*3/uL 0.1-1.00 [facility] Monocytes/100 WBC Auto (Bld) Ordered By: Corey Newberry on 11-09-2022 Monocytes/100 WBC (Bld) 4.7 % . [facility] Neutrophils Auto (Bld) [#/Vo l]Ordered By: Corey Newberry on 11-09-2022 Neutrophils (Bld) [#/Vol] 9.6 10*3/uL 1.2-7.7 [facility] Neutrophils/100 WBC Auto (Bl d)Ordered By: Corey Newberry on 11-09-2022 Neutrophils/100 WBC (Bld) 82.1 % . [facility] Nitrite Test strip Ql (U)Ord ered By: Corey Newberry on 11-09-2022 Nitrite Ql (U) Negative Negative [facility] No Panel InformationOrdered By: Corey Newberry on 11-09-2022 Negative Negative [facility] > 60 mL/Min [facility] 118.86 [facility] Nucleated erythrocytes [Pres ence] in Blood by Automated countOrdered By: Corey Newberry on 11-09-2022 Nucleated RBC Auto Ql (Bld) 0.1 /100{WBC} 0-0.5 [facility] Phencyclidine Screen Ql (U)O rdered By: Corey Newberry on 11-09-2022 Phencyclidine Ql (U) Negative Negative [facility] Platelet mean volume Auto (B ld) [Entitic vol]Ordered By: Corey Newberry on 11-09-2022 Platelet mean volume (Bld) [Entitic vol] 8.5 fL 6.3-10.7 [facility] Platelets Auto (Bld) [#/Vol] Ordered By: Corey Newberry on 11-09-2022 Platelets (Bld) [#/Vol] 274 10*3/uL 150-450 [facility] Protein Auto test strip (U) [Mass/Vol]Ordered By: Corey Newberry on 11-09-2022 Protein (U) [Mass/Vol] Negative Negative [facility] Protein [Mass/volume] in Ser um or PlasmaOrdered By: Corey Newberry on 11-09-2022 Protein [Mass/Vol] 6.6 g/dL 6.1-7.9 [facility] RBC Auto (Bld) [#/Vol]Ordere d By: Corey Newberry on 11-09-2022 RBC (Bld) [#/Vol] 4.78 10*6/uL 4.10-5.10 [facility] Serum or plasma alanine florez otransferase measurement without P-5'-P (enzymatic activiOrdered By: Corey Newberry on 11-09-2022 ALT No additional P-5'-P [Catalytic activity/Vol] 67 U/L 10-60 [facility] Serum or plasma albumin/glob ulin mass ratioOrdered By: Corey Newberry on 11-09-2022 Albumin/Globulin [Mass ratio] 1.8 {ratio} [facility] Serum or plasma alkaline justin sphatase measurement (enzymatic activity/volume)Ordered By: Corey Newberry on 11-09-2022 ALP [Catalytic activity/Vol] 59 U/L 32-92 [facility] Serum or plasma anion gap de terminationOrdered By: Corey Newberry on 11-09-2022 Anion gap [Moles/Vol] 19.7 mmol/L 6.0-15.0 [facility] Serum or plasma aspartate am inotransferase measurement (enzymatic activity/volume)Ordered By: Corey Newberry on 11-09-2022 AST [Catalytic activity/Vol] 48 U/L 10-42 [facility] Serum or plasma calcium tammy urement (mass/volume)Ordered By: Corey Newberry on 11-09-2022 Calcium [Mass/Vol] 9.6 mg/dL 8.2-10.2 [facility] Serum or plasma chloride judy surement (moles/volume)Ordered By: Corey Newberry on 11-09-2022 Chloride [Moles/Vol] 98 mmol/L 95-114 [facility] Serum or plasma creatinine m easurement with calculation of estimated glomerular filtrOrdered By: Corey Newberry on 11-09-2022 Creatinine and Glomerular filtration rate.predicted panel (S/P/Bld) 0.76 mg/dL 0.44-1.03 [facility] Serum or plasma glucose tammy urement (mass/volume)Ordered By: Corey Newberry on 11-09-2022 Glucose [Mass/Vol] 110 mg/dL 70-100 [facility] Serum or plasma potassium me asurement (moles/volume)Ordered By: Corey Newberry on 11-09-2022 Potassium [Moles/Vol] 3.4 mmol/L 3.5-5.1 [facility] Serum or plasma sodium measu rement (moles/volume)Ordered By: Corey Newberry on 11-09-2022 Sodium [Moles/Vol] 137 mmol/L 136-146 [facility] Serum or plasma total biliru bin measurement (mass/volume)Ordered By: Corey Newberry on 11-09-2022 Bilirubin [Mass/Vol] 0.5 mg/dL 0.3-1.2 [facility] Serum or plasma total carbon dioxide measurement (moles/volume)Ordered By: Corey Newberry on 11-09-2022 CO2 [Moles/Vol] 22.7 mmol/L 22.0-30.0 [facility] Serum or plasma urea nitroge n measurement (mass/volume)Ordered By: Corey Newberry on 11-09-2022 Urea nitrogen [Mass/Vol] 3 mg/dL 9-23 [facility] Specific gravity Auto test s trip (U) [Rel density]Ordered By: Corey Newberry on 11-09-2022 Specific gravity (U) [Rel density] 1.009 1.001-1.03 0 [facility] Urine clarity by refractomet ry automatedOrdered By: Corey Newberry on 11-09-2022 Clarity Refractometry automated (U) Clear Clear [facility] Urine cocaine detectionOrder ed By: Corey Newberry on 11-09-2022 Cocaine Ql (U) Negative Negative [facility] Urine glucose measurement by automated test strip (mass/volume)Ordered By: Corey Newberry on 11-09-2022 Glucose Auto test strip (U) [Mass/Vol] Normal mg/dL Normal [facility] Urine hemoglobin detection b y automated test stripOrdered By: Corey Newberry on 11-09-2022 Hemoglobin Auto test strip Ql (U) Negative Negative [facility] Urine leukocyte esterase det ection by automated test stripOrdered By: Corey Newberry on 11-09-2022 Leukocyte esterase Auto test strip Ql (U) Negative Negative [facility] Urobilinogen Auto test strip (U) [Mass/Vol]Ordered By: Corey Newberry on 11-09-2022 Urobilinogen (U) [Mass/Vol] Normal mg/dL Normal [facility] WBC Auto (Bld) [#/Vol]Ordere d By: Corey Newberry on 11-09-2022 WBC (Bld) [#/Vol] 11.7 10*3/uL 4.5-13.5 [facility] pH Auto test strip (U)Ordere d By: Corey Newberry on 11-09-2022 pH (U) [pH] 5.0-9.0 [facility] Albumin [Mass/volume] in Ser um or PlasmaOrdered By: Art Bianchi on 11-07-2022 Albumin [Mass/Vol] 4.6 g/dL 3.2-5.5 [facility] Automated erythrocytes count in urine sediment (number/area)Ordered By: Art Bianchi on 11-07-2022 RBC Auto (Urine sed) [#/Area] 0-1 [HPF] 0-4 [facility] Automated leukocytes count i n urine sediment (number/area)Ordered By: Art Bianchi on 11-07-2022 WBC Auto (Urine sed) [#/Area] 3-4 [HPF] 0-4 [facility] Basophils Auto (Bld) [#/Vol] Ordered By: Art Bianchi on 11-07-2022 Basophils (Bld) [#/Vol] 0.1 10*3/uL 0.0-0.1 [facility] Basophils/100 WBC Auto (Bld) Ordered By: Art Bianchi on 11-07-2022 Basophils/100 WBC (Bld) 1.0 % . [facility] Bilirubin Test strip Ql (U)O rdered By: Art Bianchi on 11-07-2022 Bilirubin Ql (U) Negative Negative [facility] Color Auto (U)Ordered By: Adrian red Tash on 11-07-2022 Color (U) Yellow Yellow [facility] Eosinophils Auto (Bld) [#/Vo l]Ordered By: Art Bianchi on 11-07-2022 Eosinophils (Bld) [#/Vol] 0.1 10*3/uL 0.0-0.7 [facility] Eosinophils/100 WBC Auto (Bl d)Ordered By: Art Bianchi on 11-07-2022 Eosinophils/100 WBC (Bld) 1.2 % . [facility] Erythrocyte distribution wid th Auto (RBC) [Ratio]Ordered By: Art Bianchi on 11-07-2022 Erythrocyte distribution width (RBC) [Ratio] 14.0 % 11.9-15.3 [facility] Estimated glomerular filtrat ion rate (GFR) non- AmericanOrdered By: Art Bianchi on 11-07-2022 GFR/1.73 sq M.predicted among non-blacks MDRD (S/P/Bld) [Vol rate/Area] > 60 mL/Min [facility] Globulin Calc (S) [Mass/Vol] Ordered By: Art Bianchi on 11-07-2022 Globulin (S) [Mass/Vol] 2.7 g/dL [facility] HCG ( test) IA.rapi d Ql (U)Ordered By: Art iBanchi on 11-07-2022 HCG ( test) Ql (U) Negative [facility] Hematocrit Auto (Bld) [Volum e fraction]Ordered By: Art Bianchi on 11-07-2022 Hematocrit (Bld) [Volume fraction] 43.2 % 36.0-46.0 [facility] Hemoglobin [Mass/volume] in BloodOrdered By: Art Bianchi on 11-07-2022 Hemoglobin (Bld) [Mass/Vol] 14.8 g/dL 12.0-16.0 [facility] Ketones Auto test strip (U) [Mass/Vol]Ordered By: Art Bianchi on 11-07-2022 Ketones (U) [Mass/Vol] 1+ Negative Fi [facility] Leukocytes [#/volume] correc venkata for nucleated erythrocytes in Blood by Automated counOrdered By: Art Bianchi on 11-07-2022 WBC corrected for nucl RBC Auto (Bld) [#/Vol] 10.3 10*3/uL 4.5-13.5 [facility] Lymphocytes Auto (Bld) [#/Vo l]Ordered By: Art Bianchi on 11-07-2022 Lymphocytes (Bld) [#/Vol] 2.1 10*3/uL 1.20-4.8 [facility] Lymphocytes/100 WBC Auto (Bl d)Ordered By: Art Bianchi on 11-07-2022 Lymphocytes/100 WBC (Bld) 20.8 % . [facility] MCH Auto (RBC) [Entitic mass ]Ordered By: Art Bianchi on 11-07-2022 MCH (RBC) [Entitic mass] 28.8 pg 25.0-35.0 [facility] MCHC Auto (RBC) [Mass/Vol]Or dered By: Art Bianchi on 11-07-2022 MCHC (RBC) [Mass/Vol] 34.3 g/dL 31.0-37.0 [facility] MCV Auto (RBC) [Entitic vol] Ordered By: Art Bianchi on 11-07-2022 MCV (RBC) [Entitic vol] 84.1 fL 78-102 [facility] Monocyte distribution width [Entitic volume] in Blood by AutomatedOrdered By: Art Bianchi on 11-07-2022 Monocyte distribution width Auto (Bld) [Entitic vol] 17.07 % 0.00-20.00 [facility] Monocytes Auto (Bld) [#/Vol] Ordered By: Art Bianchi on 11-07-2022 Monocytes (Bld) [#/Vol] 0.8 10*3/uL 0.1-1.00 [facility] Monocytes/100 WBC Auto (Bld) Ordered By: Art Bianchi on 11-07-2022 Monocytes/100 WBC (Bld) 8.1 % . [facility] Neutrophils Auto (Bld) [#/Vo l]Ordered By: Art Bianchi on 11-07-2022 Neutrophils (Bld) [#/Vol] 7.1 10*3/uL 1.2-7.7 [facility] Neutrophils/100 WBC Auto (Bl d)Ordered By: Art Bianchi on 11-07-2022 Neutrophils/100 WBC (Bld) 68.9 % . [facility] Nitrite Test strip Ql (U)Ord ered By: Art Bianchi on 11-07-2022 Nitrite Ql (U) Negative Negative [facility] No Panel InformationOrdered By: Art Bianchi on 11-07-2022 0-8 [LPF] 0-8 [facility] > 60 mL/Min [facility] 43.0 U/L 22-51 [facility] 104.35 [facility] Nucleated erythrocytes [Pres ence] in Blood by Automated countOrdered By: Art Bianchi on 11-07-2022 Nucleated RBC Auto Ql (Bld) 0.3 /100{WBC} 0-0.5 [facility] Platelet mean volume Auto (B ld) [Entitic vol]Ordered By: Art Bianchi on 11-07-2022 Platelet mean volume (Bld) [Entitic vol] 8.4 fL 6.3-10.7 [facility] Platelets Auto (Bld) [#/Vol] Ordered By: Art Bianchi on 11-07-2022 Platelets (Bld) [#/Vol] 308 10*3/uL 150-450 [facility] Protein Auto test strip (U) [Mass/Vol]Ordered By: Art Bianchi on 11-07-2022 Protein (U) [Mass/Vol] Trace mg/dL Negative F [facility] Protein [Mass/volume] in Ser um or PlasmaOrdered By: Art Bianchi on 11-07-2022 Protein [Mass/Vol] 7.3 g/dL 6.1-7.9 [facility] RBC Auto (Bld) [#/Vol]Ordere d By: Art Bianchi on 11-07-2022 RBC (Bld) [#/Vol] 5.14 10*6/uL 4.10-5.10 [facility] Serum or plasma alanine florez otransferase measurement without P-5'-P (enzymatic activiOrdered By: Art Bianchi on 11-07-2022 ALT No additional P-5'-P [Catalytic activity/Vol] 24 U/L 10-60 [facility] Serum or plasma albumin/glob ulin mass ratioOrdered By: Art Bianchi on 11-07-2022 Albumin/Globulin [Mass ratio] 1.7 {ratio} [facility] Serum or plasma alkaline justin sphatase measurement (enzymatic activity/volume)Ordered By: Art Bianchi on 11-07-2022 ALP [Catalytic activity/Vol] 60 U/L 32-92 [facility] Serum or plasma anion gap de terminationOrdered By: Art Bianchi on 11-07-2022 Anion gap [Moles/Vol] 12.2 mmol/L 6.0-15.0 [facility] Serum or plasma aspartate am inotransferase measurement (enzymatic activity/volume)Ordered By: Art Bianchi on 11-07-2022 AST [Catalytic activity/Vol] 25 U/L 10-42 [facility] Serum or plasma calcium tammy urement (mass/volume)Ordered By: Art Bianchi on 11-07-2022 Calcium [Mass/Vol] 9.6 mg/dL 8.2-10.2 [facility] Serum or plasma chloride judy surement (moles/volume)Ordered By: rAt Bianchi on 11-07-2022 Chloride [Moles/Vol] 98 mmol/L 95-114 [facility] Serum or plasma creatinine m easurement with calculation of estimated glomerular filtrOrdered By: Art Bianchi on 11-07-2022 Creatinine and Glomerular filtration rate.predicted panel (S/P/Bld) 0.84 mg/dL 0.44-1.03 [facility] Serum or plasma glucose tammy urement (mass/volume)Ordered By: Art Bianchi on 11-07-2022 Glucose [Mass/Vol] 106 mg/dL 70-100 [facility] Serum or plasma potassium me asurement (moles/volume)Ordered By: Art Bianchi on 11-07-2022 Potassium [Moles/Vol] 3.2 mmol/L 3.5-5.1 [facility] Serum or plasma sodium measu rement (moles/volume)Ordered By: Art Bianchi on 11-07-2022 Sodium [Moles/Vol] 132 mmol/L 136-146 [facility] Serum or plasma total biliru bin measurement (mass/volume)Ordered By: Art Bianchi on 11-07-2022 Bilirubin [Mass/Vol] 0.8 mg/dL 0.3-1.2 [facility] Serum or plasma total carbon dioxide measurement (moles/volume)Ordered By: Art Bianchi on 11-07-2022 CO2 [Moles/Vol] 25.0 mmol/L 22.0-30.0 [facility] Serum or plasma urea nitroge n measurement (mass/volume)Ordered By: Art Bianchi on 11-07-2022 Urea nitrogen [Mass/Vol] 6 mg/dL 9- [facility] Specific gravity Auto test s trip (U) [Rel density]Ordered By: Art Bianchi on 11-07-2022 Specific gravity (U) [Rel density] 1.014 1.001-1.03 0 [facility] Squamous epithelial cells de tection in urine sediment by light microscopyOrdered By: Art iBanchi on 11-07-2022 Epithelial cells.squamous LM Ql (Urine sed) 5-9 [HPF] 0-2 [facility] Urine bacteria detection by automated methodOrdered By: Art Bianchi on 11-07-2022 Bacteria Auto Ql (U) None seen None Seen [facility] Urine clarity by refractomet ry automatedOrdered By: Art Bianchi on 11-07-2022 Clarity Refractometry automated (U) Clear Clear [facility] Urine glucose measurement by automated test strip (mass/volume)Ordered By: Art Bianchi on 11-07-2022 Glucose Auto test strip (U) [Mass/Vol] Normal mg/dL Normal [facility] Urine hemoglobin detection b y automated test stripOrdered By: Art Bianchi on 11-07-2022 Hemoglobin Auto test strip Ql (U) Negative Negative [facility] Urine leukocyte esterase det ection by automated test stripOrdered By: Art Bianchi on 11-07-2022 Leukocyte esterase Auto test strip Ql (U) Negative Negative [facility] Urobilinogen Auto test strip (U) [Mass/Vol]Ordered By: Art Bianchi on 11-07-2022 Urobilinogen (U) [Mass/Vol] Normal mg/dL Normal [facility] WBC Auto (Bld) [#/Vol]Ordere d By: Art Bianchi on 11-07-2022 WBC (Bld) [#/Vol] 10.3 10*3/uL 4.5-13.5 [facility] pH Auto test strip (U)Ordere d By: Art Bianchi on 11-07-2022 pH (U) 8.5 [pH] 5.0-9.0 [facility] Urine culture routineOrdered By: Colten Fry on 11-04-2022 Bacteria identified Cx Nom (U) 2 Days [facility] Albumin [Mass/volume] in Ser um or PlasmaOrdered By: Colten Fry on 11-02-2022 Albumin [Mass/Vol] 4.8 g/dL 3.2-5.5 [facility] Amphetamine Screen Ql (U)Ord ered By: Colten Fry on 11-02-2022 Amphetamines Ql (U) Negative Negative [facility] Automated erythrocytes count in urine sediment (number/area)Ordered By: Colten Fry on 11-02-2022 RBC Auto (Urine sed) [#/Area] 20-49 [HPF] 0-4 [facility] Automated leukocytes count i n urine sediment (number/area)Ordered By: Colten Fry on 11-02-2022 WBC Auto (Urine sed) [#/Area] 5-9 [HPF] 0-4 [facility] Barbiturates [Presence] in U rineOrdered By: Colten Fry on 11-02-2022 Barbiturates Ql (U) Negative Negative [facility] Basophils Auto (Bld) [#/Vol] Ordered By: Colten Fry on 11-02-2022 Basophils (Bld) [#/Vol] 0.1 10*3/uL 0.0-0.1 [facility] Basophils/100 WBC Auto (Bld) Ordered By: Colten Fry on 11-02-2022 Basophils/100 WBC (Bld) 0.5 % . [facility] Benzodiazepines [Presence] i n UrineOrdered By: Colten Fry on 11-02-2022 Benzodiazepines Ql (U) Negative Negative [facility] Bilirubin Test strip Ql (U)O rdered By: Colten Fry on 11-02-2022 Bilirubin Ql (U) Negative Negative [facility] Cannabinoids [Presence] in U rine by Screen methodOrdered By: Colten Fry on 11-02-2022 Cannabinoids Screen Ql (U) Positive Negative [facility] Color Auto (U)Ordered By: Vida Fry on 11-02-2022 Color (U) Yellow Yellow [facility] Eosinophils Auto (Bld) [#/Vo l]Ordered By: Colten Fry on 11-02-2022 Eosinophils (Bld) [#/Vol] 0.3 10*3/uL 0.0-0.7 [facility] Eosinophils/100 WBC Auto (Bl d)Ordered By: Colten Fry on 11-02-2022 Eosinophils/100 WBC (Bld) 2.1 % . [facility] Erythrocyte distribution wid th Auto (RBC) [Ratio]Ordered By: Colten Fry on 11-02-2022 Erythrocyte distribution width (RBC) [Ratio] 13.7 % 11.9-15.3 [facility] Estimated glomerular filtrat ion rate (GFR) non- AmericanOrdered By: Colten Fry on 11-02-2022 GFR/1.73 sq M.predicted among non-blacks MDRD (S/P/Bld) [Vol rate/Area] > 60 mL/Min [facility] Globulin Calc (S) [Mass/Vol] Ordered By: Colten Fry on 11-02-2022 Globulin (S) [Mass/Vol] 3.1 g/dL [facility] HCG ( test) IA.rapi d Ql (U)Ordered By: Colten Fry on 11-02-2022 HCG ( test) Ql (U) Negative [facility] Hematocrit Auto (Bld) [Volum e fraction]Ordered By: Colten Fry on 11-02-2022 Hematocrit (Bld) [Volume fraction] 45.3 % 36.0-46.0 [facility] Hemoglobin [Mass/volume] in BloodOrdered By: Colten Fry on 11-02-2022 Hemoglobin (Bld) [Mass/Vol] 15.4 g/dL 12.0-16.0 [facility] Ketones Auto test strip (U) [Mass/Vol]Ordered By: Colten Fry on 11-02-2022 Ketones (U) [Mass/Vol] 3+ [facility] Leukocytes [#/volume] correc venkata for nucleated erythrocytes in Blood by Automated counOrdered By: Colten Fry on 11-02-2022 WBC corrected for nucl RBC Auto (Bld) [#/Vol] 11.7 10*3/uL 4.5-13.5 [facility] Lymphocytes Auto (Bld) [#/Vo l]Ordered By: Colten Fry on 11-02-2022 Lymphocytes (Bld) [#/Vol] 2.3 10*3/uL 1.20-4.8 [facility] Lymphocytes/100 WBC Auto (Bl d)Ordered By: Colten Fry on 11-02-2022 Lymphocytes/100 WBC (Bld) 19.6 % . [facility] MCH Auto (RBC) [Entitic mass ]Ordered By: Colten Fry on 11-02-2022 MCH (RBC) [Entitic mass] 28.4 pg 25.0-35.0 [facility] MCHC Auto (RBC) [Mass/Vol]Or dered By: Colten Fry on 11-02-2022 MCHC (RBC) [Mass/Vol] 34.0 g/dL 31.0-37.0 [facility] MCV Auto (RBC) [Entitic vol] Ordered By: Colten Fry on 11-02-2022 MCV (RBC) [Entitic vol] 83.3 fL 78-102 [facility] Monocytes Auto (Bld) [#/Vol] Ordered By: Colten Fry on 11-02-2022 Monocytes (Bld) [#/Vol] 1.0 10*3/uL 0.1-1.00 [facility] Monocytes/100 WBC Auto (Bld) Ordered By: Colten Fry on 11-02-2022 Monocytes/100 WBC (Bld) 8.5 % . [facility] Neutrophils Auto (Bld) [#/Vo l]Ordered By: Colten Fry on 11-02-2022 Neutrophils (Bld) [#/Vol] 8.1 10*3/uL 1.2-7.7 [facility] Neutrophils/100 WBC Auto (Bl d)Ordered By: Colten Fry on 11-02-2022 Neutrophils/100 WBC (Bld) 69.3 % . [facility] Nitrite Test strip Ql (U)Ord ered By: Colten Fry on 11-02-2022 Nitrite Ql (U) Negative Negative [facility] No Panel InformationOrdered By: Colten Fry on 11-02-2022 9-19 [LPF] 0-8 [facility] Negative Negative [facility] > 60 mL/Min [facility] 100.26 [facility] No Panel InformationOrdered By: Robert Henley on 11-02-2022 2.6 mg/dL 1.6-2.6 [facility] Nucleated erythrocytes [Pres ence] in Blood by Automated countOrdered By: Colten Fry on 11-02-2022 Nucleated RBC Auto Ql (Bld) 0.1 /100{WBC} 0-0.5 [facility] Phencyclidine Screen Ql (U)O rdered By: Colten Fry on 11-02-2022 Phencyclidine Ql (U) Negative Negative [facility] Platelet mean volume Auto (B ld) [Entitic vol]Ordered By: Colten Fry on 11-02-2022 Platelet mean volume (Bld) [Entitic vol] 7.9 fL 6.3-10.7 [facility] Platelets Auto (Bld) [#/Vol] Ordered By: Colten Fry on 11-02-2022 Platelets (Bld) [#/Vol] 292 10*3/uL 150-450 [facility] Protein Auto test strip (U) [Mass/Vol]Ordered By: Colten Fry on 11-02-2022 Protein (U) [Mass/Vol] 30 mg/dL Negative [facility] Protein [Mass/volume] in Ser um or PlasmaOrdered By: Colten Fry on 11-02-2022 Protein [Mass/Vol] 7.9 g/dL 6.1-7.9 [facility] RBC Auto (Bld) [#/Vol]Ordere d By: Colten Fry on 11-02-2022 RBC (Bld) [#/Vol] 5.43 10*6/uL 4.10-5.10 [facility] Serum or plasma alanine florez otransferase measurement without P-5'-P (enzymatic activiOrdered By: Colten Fry on 11-02-2022 ALT No additional P-5'-P [Catalytic activity/Vol] 20 U/L 10-60 [facility] Serum or plasma albumin/glob ulin mass ratioOrdered By: Colten Fry on 11-02-2022 Albumin/Globulin [Mass ratio] 1.5 {ratio} [facility] Serum or plasma alkaline justin sphatase measurement (enzymatic activity/volume)Ordered By: Colten Fry on 11-02-2022 ALP [Catalytic activity/Vol] 65 U/L 32-92 [facility] Serum or plasma anion gap de terminationOrdered By: Colten Fry on 11-02-2022 Anion gap [Moles/Vol] 14.6 mmol/L 6.0-15.0 [facility] Serum or plasma aspartate am inotransferase measurement (enzymatic activity/volume)Ordered By: Colten Fry on 11-02-2022 AST [Catalytic activity/Vol] 19 U/L 10-42 [facility] Serum or plasma calcium tammy urement (mass/volume)Ordered By: Colten Fry on 11-02-2022 Calcium [Mass/Vol] 9.6 mg/dL 8.2-10.2 [facility] Serum or plasma chloride judy surement (moles/volume)Ordered By: Colten Fry on 11-02-2022 Chloride [Moles/Vol] 95 mmol/L 95-114 [facility] Serum or plasma creatinine m easurement with calculation of estimated glomerular filtrOrdered By: Colten Fry on 11-02-2022 Creatinine and Glomerular filtration rate.predicted panel (S/P/Bld) 0.88 mg/dL 0.44-1.03 [facility] Serum or plasma glucose tammy urement (mass/volume)Ordered By: Colten Fry on 11-02-2022 Glucose [Mass/Vol] 95 mg/dL 70-100 [facility] Serum or plasma potassium me asurement (moles/volume)Ordered By: Colten Fry on 11-02-2022 Potassium [Moles/Vol] 2.9 mmol/L 3.5-5.1 [facility] Serum or plasma sodium measu rement (moles/volume)Ordered By: Colten Fry on 11-02-2022 Sodium [Moles/Vol] 134 mmol/L 136-146 [facility] Serum or plasma total biliru bin measurement (mass/volume)Ordered By: Colten Fry on 11-02-2022 Bilirubin [Mass/Vol] 1.8 mg/dL 0.3-1.2 [facility] Serum or plasma total carbon dioxide measurement (moles/volume)Ordered By: Colten Fry on 11-02-2022 CO2 [Moles/Vol] 27.3 mmol/L 22.0-30.0 [facility] Serum or plasma urea nitroge n measurement (mass/volume)Ordered By: Colten Fry on 11-02-2022 Urea nitrogen [Mass/Vol] 24 mg/dL 9-23 [facility] Specific gravity Auto test s trip (U) [Rel density]Ordered By: Colten Fry on 11-02-2022 Specific gravity (U) [Rel density] 1.025 1.001-1.03 0 [facility] Squamous epithelial cells de tection in urine sediment by light microscopyOrdered By: Colten Fry on 11-02-2022 Epithelial cells.squamous LM Ql (Urine sed) 10-19 [HPF] 0-2 [facility] Urine bacteria detection by automated methodOrdered By: Colten Fry on 11-02-2022 Bacteria Auto Ql (U) None seen None Seen [facility] Urine clarity by refractomet ry automatedOrdered By: Colten Fry on 11-02-2022 Clarity Refractometry automated (U) Cloudy Clear [facility] Urine cocaine detectionOrder ed By: Colten Fry on 11-02-2022 Cocaine Ql (U) Negative Negative [facility] Urine culture routineOrdered By: Colten Fry on 11-02-2022 Bacteria identified Cx Nom (U) 2 Days [facility] Urine culture routineOrdered By: Art Bianchi on 11-02-2022 Bacteria identified Cx Nom (U) 2 Days [facility] Urine glucose measurement by automated test strip (mass/volume)Ordered By: Colten Fry on 11-02-2022 Glucose Auto test strip (U) [Mass/Vol] Normal mg/dL Normal [facility] Urine hemoglobin detection b y automated test stripOrdered By: Colten Fry on 11-02-2022 Hemoglobin Auto test strip Ql (U) 3+ Negative [facility] Urine leukocyte esterase det ection by automated test stripOrdered By: Colten Fry on 11-02-2022 Leukocyte esterase Auto test strip Ql (U) 2+ Negative [facility] Urobilinogen Auto test strip (U) [Mass/Vol]Ordered By: Colten Fry on 11-02-2022 Urobilinogen (U) [Mass/Vol] Normal mg/dL Normal [facility] WBC Auto (Bld) [#/Vol]Ordere d By: Colten Fry on 11-02-2022 WBC (Bld) [#/Vol] 11.7 10*3/uL 4.5-13.5 [facility] pH Auto test strip (U)Ordere d By: Colten Fry on 11-02-2022 pH (U) 7.0 [pH] 5.0-9.0 [facility] Albumin [Mass/volume] in Ser um or PlasmaOrdered By: Art Bianchi on 10-31-2022 Albumin [Mass/Vol] 5.1 g/dL 3.2-5.5 [facility] Automated erythrocytes count in urine sediment (number/area)Ordered By: Art Bianchi on 10-31-2022 RBC Auto (Urine sed) [#/Area] Innumerable [HPF] 0-4 [facility] Automated leukocytes count i n urine sediment (number/area)Ordered By: Art Bianchi on 10-31-2022 WBC Auto (Urine sed) [#/Area] 10-19 [HPF] 0-4 [facility] Basophils Auto (Bld) [#/Vol] Ordered By: Art Bianchi on 10-31-2022 Basophils (Bld) [#/Vol] 0.0 10*3/uL 0.0-0.1 [facility] Basophils/100 WBC Auto (Bld) Ordered By: Art Bianchi on 10-31-2022 Basophils/100 WBC (Bld) 0.3 % . [facility] Bilirubin Test strip Ql (U)O rdered By: Art Bianchi on 10-31-2022 Bilirubin Ql (U) Negative Negative [facility] Color Auto (U)Ordered By: Adrian red Tash on 10-31-2022 Color (U) Red Yellow [facility] Eosinophils Auto (Bld) [#/Vo l]Ordered By: Art Bianchi on 10-31-2022 Eosinophils (Bld) [#/Vol] 0.1 10*3/uL 0.0-0.7 [facility] Eosinophils/100 WBC Auto (Bl d)Ordered By: Art Bianchi on 10-31-2022 Eosinophils/100 WBC (Bld) 1.0 % . [facility] Erythrocyte distribution wid th Auto (RBC) [Ratio]Ordered By: Art Bianchi on 10-31-2022 Erythrocyte distribution width (RBC) [Ratio] 14.0 % 11.9-15.3 [facility] Estimated glomerular filtrat ion rate (GFR) non- AmericanOrdered By: Art Bianchi on 10-31-2022 GFR/1.73 sq M.predicted among non-blacks MDRD (S/P/Bld) [Vol rate/Area] > 60 mL/Min [facility] Globulin Calc (S) [Mass/Vol] Ordered By: Art Bianchi on 10-31-2022 Globulin (S) [Mass/Vol] 3.1 g/dL [facility] HCG ( test) IA.rapi d Ql (U)Ordered By: Art Bianchi on 10-31-2022 HCG ( test) Ql (U) Negative [facility] Hematocrit Auto (Bld) [Volum e fraction]Ordered By: Art Bianchi on 10-31-2022 Hematocrit (Bld) [Volume fraction] 45.0 % 36.0-46.0 [facility] Hemoglobin [Mass/volume] in BloodOrdered By: Art Bianchi on 10-31-2022 Hemoglobin (Bld) [Mass/Vol] 15.2 g/dL 12.0-16.0 [facility] Ketones Auto test strip (U) [Mass/Vol]Ordered By: Art Bianchi on 10-31-2022 Ketones (U) [Mass/Vol] 3+ Negative Fi [facility] Leukocytes [#/volume] correc venkata for nucleated erythrocytes in Blood by Automated counOrdered By: Art Bianchi on 10-31-2022 WBC corrected for nucl RBC Auto (Bld) [#/Vol] 14.0 10*3/uL 4.5-13.5 [facility] Lymphocytes Auto (Bld) [#/Vo l]Ordered By: Art Bianchi on 10-31-2022 Lymphocytes (Bld) [#/Vol] 2.2 10*3/uL 1.20-4.8 [facility] Lymphocytes/100 WBC Auto (Bl d)Ordered By: Art Bianchi on 10-31-2022 Lymphocytes/100 WBC (Bld) 15.5 % . [facility] MCH Auto (RBC) [Entitic mass ]Ordered By: Art Bianchi on 10-31-2022 MCH (RBC) [Entitic mass] 28.6 pg 25.0-35.0 [facility] MCHC Auto (RBC) [Mass/Vol]Or dered By: Art Bianchi on 10-31-2022 MCHC (RBC) [Mass/Vol] 33.7 g/dL 31.0-37.0 [facility] MCV Auto (RBC) [Entitic vol] Ordered By: Art Bianchi on 10-31-2022 MCV (RBC) [Entitic vol] 85.0 fL 78-102 [facility] Monocyte distribution width [Entitic volume] in Blood by AutomatedOrdered By: Art Bianchi on 10-31-2022 Monocyte distribution width Auto (Bld) [Entitic vol] 14.69 % 0.00-20.00 [facility] Monocytes Auto (Bld) [#/Vol] Ordered By: Art Bianchi on 10-31-2022 Monocytes (Bld) [#/Vol] 1.3 10*3/uL 0.1-1.00 [facility] Monocytes/100 WBC Auto (Bld) Ordered By: Art Bianchi on 10-31-2022 Monocytes/100 WBC (Bld) 9.1 % . [facility] Neutrophils Auto (Bld) [#/Vo l]Ordered By: Art Bianchi on 10-31-2022 Neutrophils (Bld) [#/Vol] 10.4 10*3/uL 1.2-7.7 [facility] Neutrophils/100 WBC Auto (Bl d)Ordered By: Art Bianchi on 10-31-2022 Neutrophils/100 WBC (Bld) 74.1 % . [facility] Nitrite Test strip Ql (U)Ord ered By: Art Bianchi on 10-31-2022 Nitrite Ql (U) Negative Negative [facility] No Panel InformationOrdered By: Art Bianchi on 10-31-2022 0-8 [LPF] 0-8 [facility] > 60 mL/Min [facility] 29.0 U/L 22-51 [facility] 102.97 [facility] Nucleated erythrocytes [Pres ence] in Blood by Automated countOrdered By: Art Bianchi on 10-31-2022 Nucleated RBC Auto Ql (Bld) 0.1 /100{WBC} 0-0.5 [facility] Platelet mean volume Auto (B ld) [Entitic vol]Ordered By: Art Bianchi on 10-31-2022 Platelet mean volume (Bld) [Entitic vol] 8.3 fL 6.3-10.7 [facility] Platelets Auto (Bld) [#/Vol] Ordered By: Art Bianchi on 10-31-2022 Platelets (Bld) [#/Vol] 337 10*3/uL 150-450 [facility] Protein Auto test strip (U) [Mass/Vol]Ordered By: Art Bianchi on 10-31-2022 Protein (U) [Mass/Vol] 100 mg[facility]dL [facility] Protein [Mass/volume] in Ser um or PlasmaOrdered By: Art Bianchi on 10-31-2022 Protein [Mass/Vol] 8.2 g/dL 6.1-7.9 [facility] RBC Auto (Bld) [#/Vol]Ordere d By: Art Bianchi on 10-31-2022 RBC (Bld) [#/Vol] 5.29 10*6/uL 4.10-5.10 [facility] Serum or plasma alanine florez otransferase measurement without P-5'-P (enzymatic activiOrdered By: Art Bianchi on 10-31-2022 ALT No additional P-5'-P [Catalytic activity/Vol] 25 U/L 10-60 [facility] Serum or plasma albumin/glob ulin mass ratioOrdered By: Art Bianchi on 10-31-2022 Albumin/Globulin [Mass ratio] 1.6 {ratio} [facility] Serum or plasma alkaline justin sphatase measurement (enzymatic activity/volume)Ordered By: Art Bianchi on 10-31-2022 ALP [Catalytic activity/Vol] 62 U/L 32-92 [facility] Serum or plasma anion gap de terminationOrdered By: Art Bianchi on 10-31-2022 Anion gap [Moles/Vol] 16.8 mmol/L 6.0-15.0 [facility] Serum or plasma aspartate am inotransferase measurement (enzymatic activity/volume)Ordered By: Art Bianchi on 10-31-2022 AST [Catalytic activity/Vol] 25 U/L 10-42 [facility] Serum or plasma calcium tammy urement (mass/volume)Ordered By: Art Bianchi on 10-31-2022 Calcium [Mass/Vol] 9.9 mg/dL 8.2-10.2 [facility] Serum or plasma chloride judy surement (moles/volume)Ordered By: Art Bianchi on 10-31-2022 Chloride [Moles/Vol] 96 mmol/L 95-114 [facility] Serum or plasma creatinine m easurement with calculation of estimated glomerular filtrOrdered By: Art Bianchi on 10-31-2022 Creatinine and Glomerular filtration rate.predicted panel (S/P/Bld) 0.89 mg/dL 0.44-1.03 [facility] Serum or plasma glucose tammy urement (mass/volume)Ordered By: Art Bianchi on 10-31-2022 Glucose [Mass/Vol] 120 mg/dL 70-100 [facility] Serum or plasma potassium me asurement (moles/volume)Ordered By: Art Bianchi on 10-31-2022 Potassium [Moles/Vol] 3.2 mmol/L 3.5-5.1 [facility] Serum or plasma sodium measu rement (moles/volume)Ordered By: Art Bianchi on 10-31-2022 Sodium [Moles/Vol] 132 mmol/L 136-146 [facility] Serum or plasma total biliru bin measurement (mass/volume)Ordered By: Art Bianchi on 10-31-2022 Bilirubin [Mass/Vol] 1.7 mg/dL 0.3-1.2 [facility] Serum or plasma total carbon dioxide measurement (moles/volume)Ordered By: Art Bianchi on 10-31-2022 CO2 [Moles/Vol] 22.4 mmol/L 22.0-30.0 [facility] Serum or plasma urea nitroge n measurement (mass/volume)Ordered By: Art Bianchi on 10-31-2022 Urea nitrogen [Mass/Vol] 28 mg/dL 9-23 [facility] Specific gravity Auto test s trip (U) [Rel density]Ordered By: Art Bianchi on 10-31-2022 Specific gravity (U) [Rel density] 1.030 1.001-1.03 0 [facility] Squamous epithelial cells de tection in urine sediment by light microscopyOrdered By: Art Bianchi on 10-31-2022 Epithelial cells.squamous LM Ql (Urine sed) 10-19 [HPF] 0-2 [facility] Urine bacteria detection by automated methodOrdered By: Art Bianchi on 10-31-2022 Bacteria Auto Ql (U) None seen None Seen [facility] Urine clarity by refractomet ry automatedOrdered By: Art Bianchi on 10-31-2022 Clarity Refractometry automated (U) Cloudy Clear [facility] Urine culture routineOrdered By: Art Bianchi on 10-31-2022 Bacteria identified Cx Nom (U) 2 Days [facility] Urine glucose measurement by automated test strip (mass/volume)Ordered By: Art Bianchi on 10-31-2022 Glucose Auto test strip (U) [Mass/Vol] Normal mg/dL Normal [facility] Urine hemoglobin detection b y automated test stripOrdered By: Art Bianchi on 10-31-2022 Hemoglobin Auto test strip Ql (U) 3+ Negative [facility] Urine leukocyte esterase det ection by automated test stripOrdered By: Art Bianchi on 10-31-2022 Leukocyte esterase Auto test strip Ql (U) 2+ Negative [facility] Urobilinogen Auto test strip (U) [Mass/Vol]Ordered By: Art Bianchi on 10-31-2022 Urobilinogen (U) [Mass/Vol] Normal mg/dL Normal [facility] WBC Auto (Bld) [#/Vol]Ordere d By: Art Bianchi on 10-31-2022 WBC (Bld) [#/Vol] 14.0 10*3/uL 4.5-13.5 [facility] pH Auto test strip (U)Ordere d By: Art Bianchi on 10-31-2022 pH (U) 6.5 [pH] 5.0-9.0 [facility] Basophils Auto (Bld) [#/Vol] Ordered By: Ravi Arguello on 10-29-2022 Basophils (Bld) [#/Vol] 0.0 10*3/uL 0.0-0.1 [facility] Basophils/100 WBC Auto (Bld) Ordered By: Ravi Arguello on 10-29-2022 Basophils/100 WBC (Bld) 0.3 % . [facility] Body fluid albumin measureme nt (mass/volume)Ordered By: Ravi Arguello on 10-29-2022 Albumin (Body fld) [Mass/Vol] 5.2 g/dL 3.2-5.5 [facility] Creatinine and Glomerular fi ltration rate.predicted panel (S/P/Bld)Ordered By: Ravi Arguello on 10-29-2022 Creatinine [Mass/Vol] 0.85 mg/dL 0.44-1.03 [facility] Direct bilirubin measurement Ordered By: Ravi Arguello on 10-29-2022 Bilirubin.direct [Mass/Vol] 0.1 mg/dL 0.0-0.4 [facility] Eosinophils Auto (Bld) [#/Vo l]Ordered By: Ravi Arguello on 10-29-2022 Eosinophils (Bld) [#/Vol] 0.0 10*3/uL 0.0-0.7 [facility] Eosinophils/100 WBC Auto (Bl d)Ordered By: Ravi Arguello on 10-29-2022 Eosinophils/100 WBC (Bld) 0.1 % . [facility] Erythrocyte distribution wid th Auto (RBC) [Ratio]Ordered By: Ravi Arguello on 10-29-2022 Erythrocyte distribution width (RBC) [Ratio] 14.4 % 11.9-15.3 [facility] Estimated glomerular filtrat ion rate (GFR) non- AmericanOrdered By: Ravi Arguello on 10-29-2022 GFR/1.73 sq M.predicted among non-blacks MDRD (S/P/Bld) [Vol rate/Area] > 60 mL/Min [facility] Globulin Calc (S) [Mass/Vol] Ordered By: Ravi Arguello on 10-29-2022 Globulin (S) [Mass/Vol] 3.7 g/dL [facility] Hematocrit Auto (Bld) [Volum e fraction]Ordered By: Ravi Arguello on 10-29-2022 Hematocrit (Bld) [Volume fraction] 42.9 % 36.0-46.0 [facility] Hemoglobin [Mass/volume] in BloodOrdered By: Ravi Arguello on 10-29-2022 Hemoglobin (Bld) [Mass/Vol] 14.3 g/dL 12.0-16.0 [facility] Laboratory - Chemistry and C hemistry - challengeOrdered By: Rvai Arguello on 10-29-2022 Lipase [Catalytic activity/Vol] 25.0 U/L 22-51 [facility] Leukocytes [#/volume] correc venkata for nucleated erythrocytes in Blood by Automated counOrdered By: Ravi Arguello on 10-29-2022 WBC corrected for nucl RBC Auto (Bld) [#/Vol] 13.7 10*3/uL 4.5-13.5 [facility] Lymphocytes Auto (Bld) [#/Vo l]Ordered By: Ravi Arguello on 10-29-2022 Lymphocytes (Bld) [#/Vol] 1.7 10*3/uL 1.20-4.8 [facility] Lymphocytes/100 WBC Auto (Bl d)Ordered By: Ravi Arguello on 10-29-2022 Lymphocytes/100 WBC (Bld) 12.4 % . [facility] MCH Auto (RBC) [Entitic mass ]Ordered By: Ravi Arguello on 10-29-2022 MCH (RBC) [Entitic mass] 28.4 pg 25.0-35.0 [facility] MCHC Auto (RBC) [Mass/Vol]Or dered By: Ravi Arguello on 10-29-2022 MCHC (RBC) [Mass/Vol] 33.3 g/dL 31.0-37.0 [facility] MCV Auto (RBC) [Entitic vol] Ordered By: Ravi Arguello on 10-29-2022 MCV (RBC) [Entitic vol] 85.1 fL 78-102 [facility] Monocyte distribution width [Entitic volume] in Blood by AutomatedOrdered By: Ravi Arguello on 10-29-2022 Monocyte distribution width Auto (Bld) [Entitic vol] 16.57 % 0.00-20.00 [facility] Monocytes Auto (Bld) [#/Vol] Ordered By: Ravi Arguello on 10-29-2022 Monocytes (Bld) [#/Vol] 0.9 10*3/uL 0.1-1.00 [facility] Monocytes/100 WBC Auto (Bld) Ordered By: Ravi Arguello on 10-29-2022 Monocytes/100 WBC (Bld) 6.8 % . [facility] Neutrophils Auto (Bld) [#/Vo l]Ordered By: Ravi Arguello on 10-29-2022 Neutrophils (Bld) [#/Vol] 11.0 10*3/uL 1.2-7.7 [facility] Neutrophils/100 WBC Auto (Bl d)Ordered By: Ravi Arguello on 10-29-2022 Neutrophils/100 WBC (Bld) 80.4 % . [facility] No Panel InformationOrdered By: Ravi Arguello on 10-29-2022 Estimated GFR () > 60 mL/Min [facility] Comment on above: GFR estimated refere nce range: According to KDOQI guidelines, <60 ml/min/1.73m2 is sufficient to diagnose a patient with chronic kidney disease. Pharmacy Creatinine Clearance (Chem 105.83 [facility] > 60 mL/Min [facility] 25.0 U/L 22-51 [facility] 105.83 [facility] Nucleated erythrocytes [Pres ence] in Blood by Automated countOrdered By: Ravi Arguello on 10-29-2022 Nucleated RBC Auto Ql (Bld) 0.0 /100{WBC} 0-0.5 [facility] Platelet mean volume Auto (B ld) [Entitic vol]Ordered By: Ravi Arguello on 10-29-2022 Platelet mean volume (Bld) [Entitic vol] 8.4 fL 6.3-10.7 [facility] Platelets Auto (Bld) [#/Vol] Ordered By: Ravi Arguello on 10-29-2022 Platelets (Bld) [#/Vol] 355 10*3/uL 150-450 [facility] Protein [Mass/volume] in Ser um or PlasmaOrdered By: Ravi Arguello on 10-29-2022 Protein [Mass/Vol] 8.9 g/dL 6.1-7.9 [facility] RBC Auto (Bld) [#/Vol]Ordere d By: Ravi Arguello on 10-29-2022 RBC (Bld) [#/Vol] 5.04 10*6/uL 4.10-5.10 [facility] Serum or plasma alanine florez otransferase measurement without P-5'-P (enzymatic activiOrdered By: Ravi Arguello on 10-29-2022 ALT No additional P-5'-P [Catalytic activity/Vol] 24 U/L 10-60 [facility] Serum or plasma albumin/glob ulin mass ratioOrdered By: Ravi Arguello on 10-29-2022 Albumin/Globulin [Mass ratio] 1.4 {ratio} [facility] Serum or plasma alkaline justin sphatase measurement (enzymatic activity/volume)Ordered By: Ravi Arguello on 10-29-2022 ALP [Catalytic activity/Vol] 68 U/L 32-92 [facility] Serum or plasma anion gap de terminationOrdered By: Ravi Arguello on 10-29-2022 Anion gap [Moles/Vol] 19.9 mmol/L 6.0-15.0 [facility] Serum or plasma aspartate am inotransferase measurement (enzymatic activity/volume)Ordered By: Ravi Arguello on 10-29-2022 AST [Catalytic activity/Vol] 20 U/L 10-42 [facility] Serum or plasma calcium tammy urement (mass/volume)Ordered By: Ravi Arguello on 10-29-2022 Calcium [Mass/Vol] 10.4 mg/dL 8.2-10.2 [facility] Serum or plasma chloride judy surement (moles/volume)Ordered By: Ravi Arguello on 10-29-2022 Chloride [Moles/Vol] 100 mmol/L 95-114 [facility] Serum or plasma creatinine m easurement with calculation of estimated glomerular filtrOrdered By: Ravi Arguello on 10-29-2022 Creatinine and Glomerular filtration rate.predicted panel (S/P/Bld) 0.85 mg/dL 0.44-1.03 [facility] Serum or plasma glucose tammy urement (mass/volume)Ordered By: Ravi Arguello on 10-29-2022 Glucose [Mass/Vol] 114 mg/dL 70-100 [facility] Comment on above: ADA recommended refe rence rangeRandom Glucose Reference Range is dependent on time and content of last meal. Glucose of more than 200 mg/dL in a nonstressed, ambulatory subject supports the diagnosis of Diabetes Mellitus. Serum or plasma non-glucuron idated bilirubin measurement (mass/volume)Ordered By: Ravi Arguello on 10-29-2022 Bilirubin.indirect [Mass/Vol] 1.1 mg/dL [facility] Serum or plasma potassium me asurement (moles/volume)Ordered By: Ravi Arguello on 10-29-2022 Potassium [Moles/Vol] 3.3 mmol/L 3.5-5.1 [facility] Serum or plasma sodium measu rement (moles/volume)Ordered By: Ravi Arguello on 10-29-2022 Sodium [Moles/Vol] 137 mmol/L 136-146 [facility] Serum or plasma total biliru bin measurement (mass/volume)Ordered By: Ravi Arguello on 10-29-2022 Bilirubin [Mass/Vol] 1.2 mg/dL 0.3-1.2 [facility] Serum or plasma total carbon dioxide measurement (moles/volume)Ordered By: Ravi Arguello on 10-29-2022 CO2 [Moles/Vol] 20.4 mmol/L 22.0-30.0 [facility] Serum or plasma urea nitroge n measurement (mass/volume)Ordered By: Ravi Arguello on 10-29-2022 Urea nitrogen [Mass/Vol] 21 mg/dL 9-23 [facility] WBC Auto (Bld) [#/Vol]Ordere d By: Ravi Arguello on 10-29-2022 WBC (Bld) [#/Vol] 13.7 10*3/uL 4.5-13.5 [facility] Basophils Auto (Bld) [#/Vol] Ordered By: Modesta Chand on 08-27-2022 Basophils (Bld) [#/Vol] 0.0 10*3/uL 0.0-0.1 [facility] Basophils/100 WBC Auto (Bld) Ordered By: Modesta Chand on 08-27-2022 Basophils/100 WBC (Bld) 0.3 % . [facility] Body fluid albumin measureme nt (mass/volume)Ordered By: Modesta Chand on 08-27-2022 Albumin (Body fld) [Mass/Vol] 4.7 g/dL 3.2-5.5 [facility] Creatinine and Glomerular fi ltration rate.predicted panel (S/P/Bld)Ordered By: Modesta Chand on 08-27-2022 Creatinine [Mass/Vol] 0.90 mg/dL 0.44-1.03 [facility] Eosinophils Auto (Bld) [#/Vo l]Ordered By: Modesta Chand on 08-27-2022 Eosinophils (Bld) [#/Vol] 0.3 10*3/uL 0.0-0.7 [facility] Eosinophils/100 WBC Auto (Bl d)Ordered By: Modesta Chand on 08-27-2022 Eosinophils/100 WBC (Bld) 2.2 % . [facility] Erythrocyte distribution wid th Auto (RBC) [Ratio]Ordered By: Modesta Chand on 08-27-2022 Erythrocyte distribution width (RBC) [Ratio] 14.0 % 11.9-15.3 [facility] Estimated glomerular filtrat ion rate (GFR) non- AmericanOrdered By: Modesta Chand on 08-27-2022 GFR/1.73 sq M.predicted among non-blacks MDRD (S/P/Bld) [Vol rate/Area] > 60 mL/Min [facility] Globulin Calc (S) [Mass/Vol] Ordered By: Modesta Chand on 08-27-2022 Globulin (S) [Mass/Vol] 2.5 g/dL [facility] Hematocrit Auto (Bld) [Volum e fraction]Ordered By: Modesta Chand on 08-27-2022 Hematocrit (Bld) [Volume fraction] 46.5 % 36.0-46.0 [facility] Hemoglobin [Mass/volume] in BloodOrdered By: Modesta Chnad on 08-27-2022 Hemoglobin (Bld) [Mass/Vol] 15.6 g/dL 12.0-16.0 [facility] - Chemistry and C hemistry - challengeOrdered By: Modesta Chand on 08-27-2022 Lipase [Catalytic activity/Vol] 27.0 U/L 22-51 [facility] - Hematology and Cell countsOrdered By: Modesta Chand on 08-27-2022 Nucleated RBC/100 WBC (Bld) [Ratio] 0.1 % 0-0.5 [facility] Leukocytes [#/volume] in Blo od by Automated countOrdered By: Modesta Chand on 08-27-2022 WBC (Bld) [#/Vol] 13.4 10*3/uL 4.5-13.5 [facility] Lymphocytes Auto (Bld) [#/Vo l]Ordered By: Modesta Chand on 08-27-2022 Lymphocytes (Bld) [#/Vol] 3.1 10*3/uL 1.20-4.8 [facility] Lymphocytes/100 WBC Auto (Bl d)Ordered By: Modesta Chand on 08-27-2022 Lymphocytes/100 WBC (Bld) 22.9 % . [facility] MCH Auto (RBC) [Entitic mass ]Ordered By: Modesta Chand on 08-27-2022 MCH (RBC) [Entitic mass] 28.4 pg 25.0-35.0 [facility] MCHC Auto (RBC) [Mass/Vol]Or dered By: Modesta Chand on 08-27-2022 MCHC (RBC) [Mass/Vol] 33.5 g/dL 31.0-37.0 [facility] MCV Auto (RBC) [Entitic vol] Ordered By: Modesta Chand on 08-27-2022 MCV (RBC) [Entitic vol] 84.8 fL 78-102 [facility] Monocytes Auto (Bld) [#/Vol] Ordered By: Modesta Chand on 08-27-2022 Monocytes (Bld) [#/Vol] 1.2 10*3/uL 0.1-1.00 [facility] Monocytes/100 WBC Auto (Bld) Ordered By: Modesta Chand on 08-27-2022 Monocytes/100 WBC (Bld) 9.1 % . [facility] Neutrophils Auto (Bld) [#/Vo l]Ordered By: Modesta Chand on 08-27-2022 Neutrophils (Bld) [#/Vol] 8.8 10*3/uL 1.2-7.7 [facility] Neutrophils/100 WBC Auto (Bl d)Ordered By: Modesta Chand on 08-27-2022 Neutrophils/100 WBC (Bld) 65.5 % . [facility] No Panel InformationOrdered By: Modesta Chand on 08-27-2022 Estimated GFR () > 60 mL/Min [facility] Comment on above: GFR estimated refere nce range: According to KDOQI guidelines, <60 ml/min/1.73m2 is sufficient to diagnose a patient with chronic kidney disease. Pharmacy Creatinine Clearance (Chem N/A [facility] 13.4 10*3/uL 4.5-13.5 [facility] 0.1 % 0-0.5 [facility] > 60 mL/Min [facility] 27.0 U/L 22-51 [facility] N/A [facility] Platelet mean volume Auto (B ld) [Entitic vol]Ordered By: Modesta Chand on 08-27-2022 Platelet mean volume (Bld) [Entitic vol] 8.9 fL 6.3-10.7 [facility] Platelets Auto (Bld) [#/Vol] Ordered By: Modesta Chand on 08-27-2022 Platelets (Bld) [#/Vol] 373 10*3/uL 150-450 [facility] Protein [Mass/volume] in Ser um or PlasmaOrdered By: Modesta Chand on 08-27-2022 Protein [Mass/Vol] 7.2 g/dL 6.1-7.9 [facility] RBC Auto (Bld) [#/Vol]Ordere d By: Modesta Chand on 08-27-2022 RBC (Bld) [#/Vol] 5.49 10*6/uL 4.10-5.10 [facility] Serum or plasma alanine florez otransferase measurement without P-5'-P (enzymatic activiOrdered By: Modesta Chand on 08-27-2022 ALT No additional P-5'-P [Catalytic activity/Vol] 20 U/L 10-60 [facility] Serum or plasma albumin/glob ulin mass ratioOrdered By: Modesta Chand on 08-27-2022 Albumin/Globulin [Mass ratio] 1.9 {ratio} [facility] Serum or plasma alkaline justin sphatase measurement (enzymatic activity/volume)Ordered By: Modesta Chand on 08-27-2022 ALP [Catalytic activity/Vol] 63 U/L 32-92 [facility] Serum or plasma amylase tammy urement (enzymatic activity/volume)Ordered By: Modesta Chand on 08-27-2022 Amylase [Catalytic activity/Vol] 25 U/L 28-100 [facility] Serum or plasma anion gap de terminationOrdered By: Modesta Chand on 08-27-2022 Anion gap [Moles/Vol] 22.5 mmol/L 6.0-15.0 [facility] Serum or plasma aspartate am inotransferase measurement (enzymatic activity/volume)Ordered By: Modesta Chand on 08-27-2022 AST [Catalytic activity/Vol] 18 U/L 10-42 [facility] Serum or plasma calcium tammy urement (mass/volume)Ordered By: Modesta Chand on 08-27-2022 Calcium [Mass/Vol] 10.1 mg/dL 8.2-10.2 [facility] Serum or plasma chloride judy surement (moles/volume)Ordered By: Modesta Chand on 08-27-2022 Chloride [Moles/Vol] 89 mmol/L 95-114 [facility] Serum or plasma creatinine m easurement with calculation of estimated glomerular filtrOrdered By: Modesta Chand on 08-27-2022 Creatinine and Glomerular filtration rate.predicted panel (S/P/Bld) 0.90 mg/dL 0.44-1.03 [facility] Serum or plasma glucose tammy urement (mass/volume)Ordered By: Modesta Chand on 08-27-2022 Glucose [Mass/Vol] 76 mg/dL 70-100 [facility] Comment on above: ADA recommended refe rence rangeRandom Glucose Reference Range is dependent on time and content of last meal. Glucose of more than 200 mg/dL in a nonstressed, ambulatory subject supports the diagnosis of Diabetes Mellitus. Serum or plasma potassium me asurement (moles/volume)Ordered By: Modesta Chand on 08-27-2022 Potassium [Moles/Vol] 3.7 mmol/L 3.5-5.1 [facility] Serum or plasma sodium measu rement (moles/volume)Ordered By: Modesta Chand on 08-27-2022 Sodium [Moles/Vol] 131 mmol/L 136-146 [facility] Serum or plasma total biliru bin measurement (mass/volume)Ordered By: Modesta Chand on 08-27-2022 Bilirubin [Mass/Vol] 1.6 mg/dL 0.3-1.2 [facility] Comment on above: Samples from patient s who have taken Naproxen have shown spurious elevation in Total Bilirubin levels. A metabolite of Naproxen, O-desmethylnaproxen, has been shown to interfere with the Nava-Carolynn method for measuring Total Bilirubin. Serum or plasma total carbon dioxide measurement (moles/volume)Ordered By: Modesta Chand on 08-27-2022 CO2 [Moles/Vol] 23.2 mmol/L 22.0-30.0 [facility] Serum or plasma urea nitroge n measurement (mass/volume)Ordered By: Modesta Chand on 08-27-2022 Urea nitrogen [Mass/Vol] 15 mg/dL 08-20 [facility] Basophils Auto (Bld) [#/Vol] Ordered By: Gregorio Carey on 08-22-2022 Basophils (Bld) [#/Vol] 0.0 10*3/uL 0.0-0.1 [facility] Basophils/100 WBC Auto (Bld) Ordered By: Gregorio Carey on 08-22-2022 Basophils/100 WBC (Bld) 0.3 % . [facility] Blood hemoglobin measurement (mass/volume)Ordered By: Gregorio Carey on 08-22-2022 Hemoglobin (Bld) [Mass/Vol] 13.1 g/dL 12.0-16.0 [facility] Blood leukocytes automated c ount (number/volume)Ordered By: Gregorio Carey on 08-22-2022 WBC (Bld) [#/Vol] 9.7 10*3/uL 4.5-13.5 [facility] Creatinine and Glomerular fi ltration rate.predicted panel (S/P/Bld)Ordered By: Gregorio Carey on 08-22-2022 Creatinine [Mass/Vol] 0.75 mg/dL 0.44-1.03 [facility] Eosinophils Auto (Bld) [#/Vo l]Ordered By: Gregorio Carey on 08-22-2022 Eosinophils (Bld) [#/Vol] 0.1 10*3/uL 0.0-0.7 [facility] Eosinophils/100 WBC Auto (Bl d)Ordered By: Gregorio Carey on 08-22-2022 Eosinophils/100 WBC (Bld) 1.0 % . [facility] Erythrocyte distribution wid th Auto (RBC) [Ratio]Ordered By: Gregorio Carey on 08-22-2022 Erythrocyte distribution width (RBC) [Ratio] 14.1 % 11.9-15.3 [facility] Estimated glomerular filtrat ion rate (GFR) non- AmericanOrdered By: Gregorio Carey on 08-22-2022 GFR/1.73 sq M.predicted among non-blacks MDRD (S/P/Bld) [Vol rate/Area] > 60 mL/Min [facility] Hematocrit Auto (Bld) [Volum e fraction]Ordered By: Gregorio Carey on 08-22-2022 Hematocrit (Bld) [Volume fraction] 39.6 % 36.0-46.0 [facility] - Hematology and Cell countsOrdered By: Gregorio Carey on 08-22-2022 Nucleated RBC/100 WBC (Bld) [Ratio] 0.0 % 0-0.5 [facility] Lymphocytes Auto (Bld) [#/Vo l]Ordered By: Gregorio Carey on 08-22-2022 Lymphocytes (Bld) [#/Vol] 2.0 10*3/uL 1.20-4.8 [facility] Lymphocytes/100 WBC Auto (Bl d)Ordered By: Gregorio Carey on 08-22-2022 Lymphocytes/100 WBC (Bld) 20.5 % . [facility] MCH Auto (RBC) [Entitic mass ]Ordered By: Gregorio Carey on 08-22-2022 MCH (RBC) [Entitic mass] 28.0 pg 25.0-35.0 [facility] MCHC Auto (RBC) [Mass/Vol]Or dered By: Gregorio Carey on 08-22-2022 MCHC (RBC) [Mass/Vol] 33.2 g/dL 31.0-37.0 [facility] MCV Auto (RBC) [Entitic vol] Ordered By: Gregorio Carey on 08-22-2022 MCV (RBC) [Entitic vol] 84.5 fL 78-102 [facility] Monocytes Auto (Bld) [#/Vol] Ordered By: Gregorio Carey on 08-22-2022 Monocytes (Bld) [#/Vol] 0.8 10*3/uL 0.1-1.00 [facility] Monocytes/100 WBC Auto (Bld) Ordered By: Gregorio Carey on 08-22-2022 Monocytes/100 WBC (Bld) 8.0 % . [facility] Neutrophils Auto (Bld) [#/Vo l]Ordered By: Gregorio Carey on 08-22-2022 Neutrophils (Bld) [#/Vol] 6.8 10*3/uL 1.2-7.7 [facility] Neutrophils/100 WBC Auto (Bl d)Ordered By: Gregorio Carey on 08-22-2022 Neutrophils/100 WBC (Bld) 70.2 % . [facility] No Panel InformationOrdered By: Gregorio Carey on 08-22-2022 Estimated GFR () > 60 mL/Min [facility] Comment on above: GFR estimated refere nce range: According to KDOQI guidelines, <60 ml/min/1.73m2 is sufficient to diagnose a patient with chronic kidney disease. Pharmacy Creatinine Clearance (Chem 117.26 [facility] 9.7 10*3/uL 4.5-13.5 [facility] 0.0 % 0-0.5 [facility] > 60 mL/Min [facility] 117.26 [facility] Platelet mean volume Auto (B ld) [Entitic vol]Ordered By: Gregorio Carey on 08-22-2022 Platelet mean volume (Bld) [Entitic vol] 8.6 fL 6.3-10.7 [facility] Platelets Auto (Bld) [#/Vol] Ordered By: Gregorio Carey on 08-22-2022 Platelets (Bld) [#/Vol] 246 10*3/uL 150-450 [facility] RBC Auto (Bld) [#/Vol]Ordere d By: Gregorio Carey on 08-22-2022 RBC (Bld) [#/Vol] 4.69 10*6/uL 4.10-5.10 [facility] Serum nuclear antibody titer Ordered By: Gregorio Carey on 08-22-2022 Nuclear Ab (S) [Titer] Negative . [facility] Comment on above: Negative <1:80 Borde rline 1:80 Positive >1:80ICAP nomenclature: AC-0For more information about Hep-2 cell patterns useANApatterns.org, the official website for theInternational Consensus on Antinuclear Antibody (EDMOND)Patterns (ICAP).Performed at: [facility] ([facility])[address] [id number] Director: James Nelson PhD, Phone: [phone] Serum or plasma anion gap de terminationOrdered By: Gregorio Carey on 08-22-2022 Anion gap [Moles/Vol] 17.0 mmol/L 6.0-15.0 [facility] Serum or plasma beta choriog onadotropin measurement (units/volume)Ordered By: Gregorio Carey on 08-22-2022 HCG.beta subunit Qn m[IU]/mL [facility] Comment on above: Approximate Approxim ate hCG [...] on 08-22-2022 Calcium [Mass/Vol] 9.4 mg/dL 8.2-10.2 [facility] Serum or plasma chloride judy surement (moles/volume)Ordered By: Gregorio Carey on 08-22-2022 Chloride [Moles/Vol] 99 mmol/L 95-114 [facility] Serum or plasma creatinine m easurement with calculation of estimated glomerular filtrOrdered By: Gregorio Carey on 08-22-2022 Creatinine and Glomerular filtration rate.predicted panel (S/P/Bld) 0.75 mg/dL 0.44-1.03 [facility] Serum or plasma glucose tammy urement (mass/volume)Ordered By: Gregorio Carey on 08-22-2022 Glucose [Mass/Vol] 90 mg/dL 70-100 [facility] Comment on above: ADA recommended refe rence [...] on 08-22-2022 Potassium [Moles/Vol] 3.8 mmol/L 3.5-5.1 [facility] Serum or plasma sodium measu rement (moles/volume)Ordered By: Gregorio Carey on 08-22-2022 Sodium [Moles/Vol] 134 mmol/L 136-146 [facility] Serum or plasma total carbon dioxide measurement (moles/volume)Ordered By: Gregorio Carey on 08-22-2022 CO2 [Moles/Vol] 21.8 mmol/L 22.0-30.0 [facility] Serum or plasma urea nitroge n measurement (mass/volume)Ordered By: Gregorio Carey on 08-22-2022 Urea nitrogen [Mass/Vol] 7 mg/dL 08-20 [facility] Urine culture routineOrdered By: Gregorio Carey on 08-22-2022 Bacteria identified Cx Nom (U) 2 Days [facility] Urine culture routineOrdered By: Gilson Castro on 08-22-2022 Bacteria identified Cx Nom (U) 2 Days [facility] Urine culture routineOrdered By: Colten Fry on 08-21-2022 Bacteria identified Cx Nom (U) 2 Days [facility] Amphetamine Screen Ql (U)Ord ered By: Gilson Castro on 08-20-2022 Amphetamines Ql (U) Negative Negative [facility] Automated erythrocytes count in urine sediment (number/area)Ordered By: Gilson Castro on 08-20-2022 RBC Auto (Urine sed) [#/Area] None seen [HPF] 0-4 [facility] Automated leukocytes count i n urine sediment (number/area)Ordered By: Gilson Castro on 08-20-2022 WBC Auto (Urine sed) [#/Area] 1-2 [HPF] 0-4 [facility] Barbiturates [Presence] in U rineOrdered By: Gilson Castro on 08-20-2022 Barbiturates Ql (U) Positive Negative [facility] Basophils Auto (Bld) [#/Vol] Ordered By: Gilson Castro on 08-20-2022 Basophils (Bld) [#/Vol] 0.0 10*3/uL 0.0-0.1 [facility] Basophils/100 WBC Auto (Bld) Ordered By: Gilson Castro on 08-20-2022 Basophils/100 WBC (Bld) 0.4 % . [facility] Benzodiazepines [Presence] i n UrineOrdered By: Gilson Castro on 08-20-2022 Benzodiazepines Ql (U) Negative Negative Fi [facility] Bilirubin Test strip Ql (U)O rdered By: Gilson Castro on 08-20-2022 Bilirubin Ql (U) Negative Negative [facility] Blood anisocytosis detection Ordered By: Gilson Castro on 08-20-2022 Anisocytosis Ql (Bld) Slight Fir [facility] Blood hemoglobin measurement (mass/volume)Ordered By: Gilson Castro on 08-20-2022 Hemoglobin (Bld) [Mass/Vol] 12.1 g/dL 12.0-16.0 [facility] Blood leukocytes automated c ount (number/volume)Ordered By: Gilson Castro on 08-20-2022 WBC (Bld) [#/Vol] 10.9 10*3/uL 4.5-13.5 [facility] COVID-19 Positive/NegativeOr dered By: Ravi Arguello on 08-20-2022 SARS-CoV-2 (COVID-19) N gene JANAK+probe Ql (Resp) Negative Negative [facility] Comment on above: Testing for SARS-CoV -2 by RT-PCR This test was developed and its performance characteristics determined by [employer] and validated at the [facility]. This test has not been FDA [...] developed and its performance characteristics determined by [employer] and validated at the [facility]. This test has not been FDA [...] or revoked sooner. COVID-19 SOFIAOrdered By: Gisselle Arguello on 08-20-2022 SARS-CoV+SARS-CoV-2 (COVID-19) Ag IA.rapid Ql (Resp) Negative Negative [facility] Comment on above: This is a duplicate [employer] SARS Antigen (JOSE A) result to be used for statistical tracking purpose only. Cannabinoids [Presence] in U rine by Screen methodOrdered By: Gilson Castro on 08-20-2022 Cannabinoids Screen Ql (U) Positive Negative [facility] Comment on above: These are unconfirme [...] Castro on 08-20-2022 Color (U) Yellow Yellow [facility] Creatinine and Glomerular fi ltration rate.predicted panel (S/P/Bld)Ordered By: Gilson Castro on 08-20-2022 Creatinine [Mass/Vol] 0.65 mg/dL 0.44-1.03 [facility] Eosinophils Auto (Bld) [#/Vo l]Ordered By: Gilson Castro on 08-20-2022 Eosinophils (Bld) [#/Vol] 0.0 10*3/uL 0.0-0.7 [facility] Eosinophils/100 WBC Auto (Bl d)Ordered By: Gilson Castro on 08-20-2022 Eosinophils/100 WBC (Bld) 0.3 % . [facility] Erythrocyte distribution wid th Auto (RBC) [Ratio]Ordered By: Gilson Castro on 08-20-2022 Erythrocyte distribution width (RBC) [Ratio] 13.9 % 11.9-15.3 [facility] Estimated glomerular filtrat ion rate (GFR) non- AmericanOrdered By: Gilson Castro on 08-20-2022 GFR/1.73 sq M.predicted among non-blacks MDRD (S/P/Bld) [Vol rate/Area] > 60 mL/Min [facility] Hematocrit Auto (Bld) [Volum e fraction]Ordered By: Gilson Castro on 08-20-2022 Hematocrit (Bld) [Volume fraction] 36.8 % 36.0-46.0 [facility] Ketones Auto test strip (U) [Mass/Vol]Ordered By: Gilson Castro on 08-20-2022 Ketones (U) [Mass/Vol] 2+ Negative [facility] Laboratory - Chemistry and C hemistry - challengeOrdered By: Gilson Castro on 08-20-2022 Magnesium [Mass/Vol] 1.9 mg/dL 1.6-2.6 [facility] Laboratory - Drug toxicology Ordered By: Gilson Castro on 08-20-2022 Opiates Ql (U) Negative Negative [facility] Laboratory - Hematology and Cell countsOrdered By: Gilson Castro on 08-20-2022 Nucleated RBC/100 WBC (Bld) [Ratio] 0.0 % 0-0.5 [facility] Laboratory - UrinalysisOrder ed By: Gilson Castro on 08-20-2022 Hyaline casts LM Ql (Urine sed) None seen [LPF] 0-8 [facility] Lymphocytes Auto (Bld) [#/Vo l]Ordered By: Gilson Castro on 08-20-2022 Lymphocytes (Bld) [#/Vol] 1.3 10*3/uL 1.20-4.8 [facility] Lymphocytes/100 WBC Auto (Bl d)Ordered By: Gilson Castro on 08-20-2022 Lymphocytes/100 WBC (Bld) 11.5 % . [facility] MCH Auto (RBC) [Entitic mass ]Ordered By: Gilson Castro on 08-20-2022 MCH (RBC) [Entitic mass] 28.1 pg 25.0-35.0 [facility] MCHC Auto (RBC) [Mass/Vol]Or dered By: Gilson Castro on 08-20-2022 MCHC (RBC) [Mass/Vol] 32.9 g/dL 31.0-37.0 [facility] MCV Auto (RBC) [Entitic vol] Ordered By: Gilson Castro on 08-20-2022 MCV (RBC) [Entitic vol] 85.5 fL 78-102 [facility] Monocytes Auto (Bld) [#/Vol] Ordered By: Gilson Castro on 08-20-2022 Monocytes (Bld) [#/Vol] 0.4 10*3/uL 0.1-1.00 [facility] Monocytes/100 WBC Auto (Bld) Ordered By: Gilson Castro on 08-20-2022 Monocytes/100 WBC (Bld) 3.7 % . [facility] Neutrophils Auto (Bld) [#/Vo l]Ordered By: Gilson Castro on 08-20-2022 Neutrophils (Bld) [#/Vol] 9.2 10*3/uL 1.2-7.7 [facility] Neutrophils/100 WBC Auto (Bl d)Ordered By: Gilson Castro on 08-20-2022 Neutrophils/100 WBC (Bld) 84.1 % . [facility] Nitrite Test strip Ql (U)Ord ered By: Gilson Castro on 08-20-2022 Nitrite Ql (U) Negative Negative [facility] No Panel InformationOrdered By: Gilson Castro on 08-20-2022 None seen [LPF] 0-8 [facility] Negative Negative [facility] Estimated GFR () > 60 mL/Min [facility] Comment on above: GFR estimated refere nce range: According to KDOQI guidelines, <60 ml/min/1.73m2 is sufficient to diagnose a patient with chronic kidney disease. Pharmacy Creatinine Clearance (Chem 136.96 [facility] Platelet Estimate Normal Normal [facility] Platelet Morphology Comment Normal Normal [facility] Normal Normal [facility] 1.9 mg/dL 1.6-2.6 [facility] No Panel InformationOrdered By: Ravi Arguello on 08-20-2022 SARS Antigen (LFIA) [facility] Phencyclidine Screen Ql (U)O rdered By: Gilson Castro on 08-20-2022 Phencyclidine Ql (U) Negative Negative [facility] Platelet mean volume Auto (B ld) [Entitic vol]Ordered By: Gilson Castro on 08-20-2022 Platelet mean volume (Bld) [Entitic vol] 8.6 fL 6.3-10.7 [facility] Platelets Auto (Bld) [#/Vol] Ordered By: Gilson Castro on 08-20-2022 Platelets (Bld) [#/Vol] 145 10*3/uL 150-450 [facility] Comment on above: Delta: 314 on Protein Auto test strip (U) [Mass/Vol]Ordered By: Gilson Castro on 08-20-2022 Protein (U) [Mass/Vol] Negative Negative Fi [facility] RBC Auto (Bld) [#/Vol]Ordere d By: Gilson Castro on 08-20-2022 RBC (Bld) [#/Vol] 4.31 10*6/uL 4.10-5.10 [facility] RBC morphologyOrdered By: Pierce Castro on 08-20-2022 RBC morphology finding Nom (Bld) N/A [facility] Serum or plasma anion gap de terminationOrdered By: Gilson Castro on 08-20-2022 Anion gap [Moles/Vol] 15.2 mmol/L 6.0-15.0 [facility] Serum or plasma calcium tammy urement (mass/volume)Ordered By: Gilson Castro on 08-20-2022 Calcium [Mass/Vol] 8.6 mg/dL 8.2-10.2 [facility] Serum or plasma chloride judy surement (moles/volume)Ordered By: Gilson Castro on 08-20-2022 Chloride [Moles/Vol] 101 mmol/L 95-114 [facility] Serum or plasma glucose tammy urement (mass/volume)Ordered By: Gilson Castro on 08-20-2022 Glucose [Mass/Vol] 96 mg/dL 70-100 [facility] Comment on above: ADA recommended refe rence range Random Glucose Reference Range is dependent on time and content of last meal. Glucose of more than 200 mg/dL in a nonstressed, ambulatory subject supports the diagnosis of Diabetes Mellitus. Serum or plasma potassium me asurement (moles/volume)Ordered By: Gilson Castro on 08-20-2022 Potassium [Moles/Vol] 3.1 mmol/L 3.5-5.1 [facility] Serum or plasma sodium measu rement (moles/volume)Ordered By: Gilson Castro on 08-20-2022 Sodium [Moles/Vol] 135 mmol/L 136-146 [facility] Serum or plasma total carbon dioxide measurement (moles/volume)Ordered By: Gilson Castro on 08-20-2022 CO2 [Moles/Vol] 21.9 mmol/L 22.0-30.0 [facility] Serum or plasma urea nitroge n measurement (mass/volume)Ordered By: Gilson Castro on 08-20-2022 Urea nitrogen [Mass/Vol] 11 mg/dL 08-20 [facility] Specific gravity Auto test s trip (U) [Rel density]Ordered By: Gilson Castro on 08-20-2022 Specific gravity (U) [Rel density] 1.008 1.001-1.03 0 [facility] Squamous epithelial cells de tection in urine sediment by light microscopyOrdered By: Gilson Castro on 08-20-2022 Epithelial cells.squamous LM Ql (Urine sed) 1-2 [HPF] 0-2 [facility] Urine bacteria detection by automated methodOrdered By: Gilson Castro on 08-20-2022 Bacteria Auto Ql (U) None seen None Seen [facility] Urine clarity by refractomet ry automatedOrdered By: Gilson Castro on 08-20-2022 Clarity Refractometry automated (U) Clear Clear [facility] Urine cocaine detectionOrder ed By: Gilson Castro on 08-20-2022 Cocaine Ql (U) Negative Negative [facility] Urine glucose measurement by automated test strip (mass/volume)Ordered By: Gilson Castro on 08-20-2022 Glucose Auto test strip (U) [Mass/Vol] Normal mg/dL Normal [facility] Urine hemoglobin detection b y automated test stripOrdered By: Gilson Castro on 08-20-2022 Hemoglobin Auto test strip Ql (U) Negative Negative [facility] Urine leukocyte esterase det ection by automated test stripOrdered By: Gilson Castro on 08-20-2022 Leukocyte esterase Auto test strip Ql (U) 1+ Negative [facility] Urobilinogen Auto test strip (U) [Mass/Vol]Ordered By: Gilson Castro on 08-20-2022 Urobilinogen (U) [Mass/Vol] Normal mg/dL Normal [facility] pH Auto test strip (U)Ordere d By: Gilson Castro on 08-20-2022 pH (U) 7.0 [pH] 5.0-9.0 [facility] Automated erythrocytes count in urine sediment (number/area)Ordered By: Gilson Castro on 08-19-2022 RBC Auto (Urine sed) [#/Area] 3-4 [HPF] 0-4 [facility] Automated erythrocytes count in urine sediment (number/area)Ordered By: Colten Fry on 08-19-2022 RBC Auto (Urine sed) [#/Area] None seen [HPF] 0-4 [facility] Automated leukocytes count i n urine sediment (number/area)Ordered By: Gilson Castro on 08-19-2022 WBC Auto (Urine sed) [#/Area] 20-49 [HPF] 0-4 [facility] Automated leukocytes count i n urine sediment (number/area)Ordered By: Colten Fry on 08-19-2022 WBC Auto (Urine sed) [#/Area] 5-9 [HPF] 0-4 [facility] Automated urine hyaline cast s count (number/volume)Ordered By: Gilson Castro on 08-19-2022 Hyaline casts Auto (U) [#/Vol] None seen [LPF] 0-1 [facility] Basophils Auto (Bld) [#/Vol] Ordered By: Gilson Castro on 08-19-2022 Basophils (Bld) [#/Vol] 0.0 10*3/uL 0.0-0.1 [facility] Basophils Auto (Bld) [#/Vol] Ordered By: Colten Fry on 08-19-2022 Basophils (Bld) [#/Vol] 0.0 10*3/uL 0.0-0.1 [facility] Basophils/100 WBC Auto (Bld) Ordered By: Gilson Castro on 08-19-2022 Basophils/100 WBC (Bld) 0.2 % . [facility] Basophils/100 WBC Auto (Bld) Ordered By: Colten Fry on 08-19-2022 Basophils/100 WBC (Bld) 0.4 % . [facility] Bilirubin Test strip Ql (U)O rdered By: Gilson Castro on 08-19-2022 Bilirubin Ql (U) Negative Negative [facility] Bilirubin Test strip Ql (U)O rdered By: Colten Fry on 08-19-2022 Bilirubin Ql (U) Negative Negative [facility] Blood hemoglobin measurement (mass/volume)Ordered By: Gilson Castro on 08-19-2022 Hemoglobin (Bld) [Mass/Vol] 13.2 g/dL 12.0-16.0 [facility] Blood hemoglobin measurement (mass/volume)Ordered By: Colten Fry on 08-19-2022 Hemoglobin (Bld) [Mass/Vol] 12.8 g/dL 12.0-16.0 [facility] Blood leukocytes automated c ount (number/volume)Ordered By: Gilson Castro on 08-19-2022 WBC (Bld) [#/Vol] 15.5 10*3/uL 4.5-13.5 [facility] Blood leukocytes automated c ount (number/volume)Ordered By: Colten Fry on 08-19-2022 WBC (Bld) [#/Vol] 13.5 10*3/uL 4.5-13.5 [facility] Body fluid albumin measureme nt (mass/volume)Ordered By: Gilson Castro on 08-19-2022 Albumin (Body fld) [Mass/Vol] 4.0 g/dL 3.2-5.5 [facility] Body fluid albumin measureme nt (mass/volume)Ordered By: Colten Fry on 08-19-2022 Albumin (Body fld) [Mass/Vol] 4.5 g/dL 3.2-5.5 [facility] COVID-19 SOFIAOrdered By: Pierce Castro on 08-19-2022 SARS-CoV+SARS-CoV-2 (COVID-19) Ag IA.rapid Ql (Resp) Negative Negative [facility] Comment on above: This is a duplicate [facility] SARS Antigen (JOSE A) result to be used for statistical tracking purpose only. Casts typing in urine sedime nt by light microscopyOrdered By: Gilson Castro on 08-19-2022 Casts LM Nom (Urine sed) None seen [LPF] None Seen [facility] Casts typing in urine sedime nt by light microscopyOrdered By: Colten Fry on 08-19-2022 Casts LM Nom (Urine sed) N/A [facility] Color Auto (U)Ordered By: Pierce Castro on 08-19-2022 Color (U) Yellow Yellow [facility] Color Auto (U)Ordered By: Vida Fry on 08-19-2022 Color (U) Yellow Yellow [facility] Creatinine and Glomerular fi ltration rate.predicted panel (S/P/Bld)Ordered By: Gilson Castro on 08-19-2022 Creatinine [Mass/Vol] 0.73 mg/dL 0.44-1.03 [facility] Creatinine and Glomerular fi ltration rate.predicted panel (S/P/Bld)Ordered By: Colten Fry on 08-19-2022 Creatinine [Mass/Vol] 0.82 mg/dL 0.44-1.03 [facility] Eosinophils Auto (Bld) [#/Vo l]Ordered By: Gilson Castro on 08-19-2022 Eosinophils (Bld) [#/Vol] 0.0 10*3/uL 0.0-0.7 [facility] Eosinophils Auto (Bld) [#/Vo l]Ordered By: Colten Fry on 08-19-2022 Eosinophils (Bld) [#/Vol] 0.0 10*3/uL 0.0-0.7 [facility] Eosinophils/100 WBC Auto (Bl d)Ordered By: Gilson Castro on 08-19-2022 Eosinophils/100 WBC (Bld) 0.2 % . [facility] Eosinophils/100 WBC Auto (Bl d)Ordered By: Colten Fry on 08-19-2022 Eosinophils/100 WBC (Bld) 0.0 % . [facility] Erythrocyte distribution wid th Auto (RBC) [Ratio]Ordered By: Gilson Castro on 08-19-2022 Erythrocyte distribution width (RBC) [Ratio] 14.4 % 11.9-15.3 [facility] Erythrocyte distribution wid th Auto (RBC) [Ratio]Ordered By: Colten Fry on 08-19-2022 Erythrocyte distribution width (RBC) [Ratio] 14.3 % 11.9-15.3 [facility] Estimated glomerular filtrat ion rate (GFR) non- AmericanOrdered By: Gilson Castro on 08-19-2022 GFR/1.73 sq M.predicted among non-blacks MDRD (S/P/Bld) [Vol rate/Area] > 60 mL/Min [facility] Estimated glomerular filtrat ion rate (GFR) non- AmericanOrdered By: Colten Fry on 08-19-2022 GFR/1.73 sq M.predicted among non-blacks MDRD (S/P/Bld) [Vol rate/Area] > 60 mL/Min [facility] Globulin Calc (S) [Mass/Vol] Ordered By: Gilson Castro on 08-19-2022 Globulin (S) [Mass/Vol] 2.7 g/dL [facility] Globulin Calc (S) [Mass/Vol] Ordered By: Colten Fry on 08-19-2022 Globulin (S) [Mass/Vol] 3.0 g/dL [facility] HCG ( test) IA.rapi d Ql (U)Ordered By: Gilson Castro on 08-19-2022 HCG ( test) Ql (U) Negative [facility] HCG ( test) IA.rapi d Ql (U)Ordered By: Colten Fry on 08-19-2022 HCG ( test) Ql (U) Negative [facility] Hematocrit Auto (Bld) [Volum e fraction]Ordered By: Gilson Castro on 08-19-2022 Hematocrit (Bld) [Volume fraction] 40.6 % 36.0-46.0 [facility] Hematocrit Auto (Bld) [Volum e fraction]Ordered By: Colten Fry on 08-19-2022 Hematocrit (Bld) [Volume fraction] 39.5 % 36.0-46.0 [facility] Ketones Auto test strip (U) [Mass/Vol]Ordered By: Gilson Castro on 08-19-2022 Ketones (U) [Mass/Vol] 4+ Negative Fi [facility] Ketones Auto test strip (U) [Mass/Vol]Ordered By: Colten Fry on 08-19-2022 Ketones (U) [Mass/Vol] 3+ Negative Fi [facility] Laboratory - Chemistry and C hemistry - challengeOrdered By: Gilson Castro on 08-19-2022 Lipase [Catalytic activity/Vol] 24.0 U/L [facility] Magnesium [Mass/Vol] 2.0 mg/dL 1.6-2.6 [facility] Laboratory - Hematology and Cell countsOrdered By: Gilson Castro on 08-19-2022 Nucleated RBC/100 WBC (Bld) [Ratio] 0.1 % 0-0.5 [facility] Laboratory - Hematology and Cell countsOrdered By: Colten Fry on 08-19-2022 Nucleated RBC/100 WBC (Bld) [Ratio] 0.0 % 0-0.5 [facility] Laboratory - UrinalysisOrder ed By: Colten Fry on 08-19-2022 Hyaline casts LM Ql (Urine sed) None seen [LPF] 0-8 [facility] Lymphocytes Auto (Bld) [#/Vo l]Ordered By: Gilson Castro on 08-19-2022 Lymphocytes (Bld) [#/Vol] 2.3 10*3/uL 1.20-4.8 [facility] Lymphocytes Auto (Bld) [#/Vo l]Ordered By: Colten Fry on 08-19-2022 Lymphocytes (Bld) [#/Vol] 1.0 10*3/uL 1.20-4.8 [facility] Lymphocytes/100 WBC Auto (Bl d)Ordered By: Gilson Castro on 08-19-2022 Lymphocytes/100 WBC (Bld) 14.6 % . [facility] Lymphocytes/100 WBC Auto (Bl d)Ordered By: Colten Fry on 08-19-2022 Lymphocytes/100 WBC (Bld) 7.3 % . [facility] MCH Auto (RBC) [Entitic mass ]Ordered By: Gilson Castro on 08-19-2022 MCH (RBC) [Entitic mass] 27.9 pg 25.0-35.0 [facility] MCH Auto (RBC) [Entitic mass ]Ordered By: Colten Fry on 08-19-2022 MCH (RBC) [Entitic mass] 27.7 pg 25.0-35.0 [facility] MCHC Auto (RBC) [Mass/Vol]Or dered By: Gilson Castro on 08-19-2022 MCHC (RBC) [Mass/Vol] 32.6 g/dL 31.0-37.0 [facility] MCHC Auto (RBC) [Mass/Vol]Or dered By: Colten Fry on 08-19-2022 MCHC (RBC) [Mass/Vol] 32.3 g/dL 31.0-37.0 [facility] MCV Auto (RBC) [Entitic vol] Ordered By: Gislon Castro on 08-19-2022 MCV (RBC) [Entitic vol] 85.6 fL 78-102 [facility] MCV Auto (RBC) [Entitic vol] Ordered By: Colten Fry on 08-19-2022 MCV (RBC) [Entitic vol] 85.7 fL 78-102 [facility] Monocytes Auto (Bld) [#/Vol] Ordered By: Gilson Castro on 08-19-2022 Monocytes (Bld) [#/Vol] 1.1 10*3/uL 0.1-1.00 [facility] Monocytes Auto (Bld) [#/Vol] Ordered By: Colten Fry on 08-19-2022 Monocytes (Bld) [#/Vol] 0.3 10*3/uL 0.1-1.00 [facility] Monocytes/100 WBC Auto (Bld) Ordered By: Gilson Castro on 08-19-2022 Monocytes/100 WBC (Bld) 7.3 % . [facility] Monocytes/100 WBC Auto (Bld) Ordered By: Colten Fry on 08-19-2022 Monocytes/100 WBC (Bld) 2.1 % . [facility] Neutrophils Auto (Bld) [#/Vo l]Ordered By: Gilson Castro on 08-19-2022 Neutrophils (Bld) [#/Vol] 12.1 10*3/uL 1.2-7.7 [facility] Neutrophils Auto (Bld) [#/Vo l]Ordered By: Colten Fry on 08-19-2022 Neutrophils (Bld) [#/Vol] 12.2 10*3/uL 1.2-7.7 [facility] Neutrophils/100 WBC Auto (Bl d)Ordered By: Gilson Castro on 08-19-2022 Neutrophils/100 WBC (Bld) 77.7 % . [facility] Neutrophils/100 WBC Auto (Bl d)Ordered By: Colten Fry on 08-19-2022 Neutrophils/100 WBC (Bld) 90.2 % . [facility] Nitrite Test strip Ql (U)Ord ered By: Gilson Castro on 08-19-2022 Nitrite Ql (U) Negative Negative [facility] Nitrite Test strip Ql (U)Ord ered By: Colten Fry on 08-19-2022 Nitrite Ql (U) Negative Negative [facility] No Panel InformationOrdered By: Gilson Castro on 08-19-2022 Estimated GFR () > 60 mL/Min [facility] Comment on above: GFR estimated refere nce range: According to KDOQI guidelines, <60 ml/min/1.73m2 is sufficient to diagnose a patient with chronic kidney disease. Pharmacy Creatinine Clearance (Chem 121.95 [facility] > 60 mL/Min [facility] 2.0 mg/dL 1.6-2.6 [facility] 24.0 U/L 51 [facility] 121.95 [facility] 15.5 10*3/uL 4.5-13.5 [facility] 0.1 % 0-0.5 [facility] SARS Antigen (LFIA) [facility] No Panel InformationOrdered By: Colten Fry on 08-19-2022 None seen [LPF] 0-8 [facility] Estimated GFR () > 60 mL/Min [facility] Comment on above: GFR estimated refere nce range: According to KDOQI guidelines, <60 ml/min/1.73m2 is sufficient to diagnose a patient with chronic kidney disease. Pharmacy Creatinine Clearance (Chem 106.97 [facility] 13.5 10*3/uL 4.5-13.5 [facility] 0.0 % 0-0.5 [facility] > 60 mL/Min [facility] 106.97 [facility] Platelet mean volume Auto (B ld) [Entitic vol]Ordered By: Gilson Castro on 08-19-2022 Platelet mean volume (Bld) [Entitic vol] 8.8 fL 6.3-10.7 [facility] Platelet mean volume Auto (B ld) [Entitic vol]Ordered By: Colten Fry on 08-19-2022 Platelet mean volume (Bld) [Entitic vol] 8.7 fL 6.3-10.7 [facility] Platelets Auto (Bld) [#/Vol] Ordered By: Gilson Castro on 08-19-2022 Platelets (Bld) [#/Vol] 314 10*3/uL 150-450 [facility] Platelets Auto (Bld) [#/Vol] Ordered By: Colten Fry on 08-19-2022 Platelets (Bld) [#/Vol] 258 10*3/uL 150-450 [facility] Protein Auto test strip (U) [Mass/Vol]Ordered By: Gilson Castro on 08-19-2022 Protein (U) [Mass/Vol] 30 mg/dL Negative Fi [facility] Protein Auto test strip (U) [Mass/Vol]Ordered By: Colten Fry on 08-19-2022 Protein (U) [Mass/Vol] Trace mg/dL Negative F [facility] Protein [Mass/volume] in Ser um or PlasmaOrdered By: Gilson Castro on 08-19-2022 Protein [Mass/Vol] 6.7 g/dL 6.1-7.9 [facility] Protein [Mass/volume] in Ser um or PlasmaOrdered By: Colten Fry on 08-19-2022 Protein [Mass/Vol] 7.5 g/dL 6.1-7.9 [facility] RBC Auto (Bld) [#/Vol]Ordere d By: Gilson Castro on 08-19-2022 RBC (Bld) [#/Vol] 4.74 10*6/uL 4.10-5.10 [facility] RBC Auto (Bld) [#/Vol]Ordere d By: Colten Fry on 08-19-2022 RBC (Bld) [#/Vol] 4.60 10*6/uL 4.10-5.10 [facility] Serum or plasma alanine florez otransferase measurement without P-5'-P (enzymatic activiOrdered By: Gilson Castro on 08-19-2022 ALT No additional P-5'-P [Catalytic activity/Vol] 17 U/L [facility] Serum or plasma alanine florez otransferase measurement without P-5'-P (enzymatic activiOrdered By: Colten Fyr on 08-19-2022 ALT No additional P-5'-P [Catalytic activity/Vol] 16 U/L [facility] Serum or plasma albumin/glob ulin mass ratioOrdered By: Gilson Castro on 08-19-2022 Albumin/Globulin [Mass ratio] 1.5 {ratio} [facility] Serum or plasma albumin/glob ulin mass ratioOrdered By: Colten Fry on 08-19-2022 Albumin/Globulin [Mass ratio] 1.5 {ratio} [facility] Serum or plasma alkaline justin sphatase measurement (enzymatic activity/volume)Ordered By: Gilson Castro on 08-19-2022 ALP [Catalytic activity/Vol] 51 U/L [facility] Serum or plasma alkaline justin sphatase measurement (enzymatic activity/volume)Ordered By: Colten Fry on 08-19-2022 ALP [Catalytic activity/Vol] 59 U/L [facility] Serum or plasma anion gap de terminationOrdered By: Gilson Castro on 08-19-2022 Anion gap [Moles/Vol] 13.8 mmol/L 6.0-15.0 [facility] Serum or plasma anion gap de terminationOrdered By: Colten Fry on 08-19-2022 Anion gap [Moles/Vol] 19.5 mmol/L 6.0-15.0 [facility] Serum or plasma aspartate am inotransferase measurement (enzymatic activity/volume)Ordered By: Gilson Castro on 08-19-2022 AST [Catalytic activity/Vol] 17 U/L [facility] Serum or plasma aspartate am inotransferase measurement (enzymatic activity/volume)Ordered By: Colten Fry on 08-19-2022 AST [Catalytic activity/Vol] 20 U/L [facility] Serum or plasma calcium tammy urement (mass/volume)Ordered By: Gilson Castro on 08-19-2022 Calcium [Mass/Vol] 9.1 mg/dL 8.2-10.2 [facility] Serum or plasma calcium tammy urement (mass/volume)Ordered By: Colten Fry on 08-19-2022 Calcium [Mass/Vol] 9.8 mg/dL 8.2-10.2 [facility] Serum or plasma chloride judy surement (moles/volume)Ordered By: Gilson Castro on 08-19-2022 Chloride [Moles/Vol] 104 mmol/L 95-114 [facility] Serum or plasma chloride judy surement (moles/volume)Ordered By: Colten Fry on 08-19-2022 Chloride [Moles/Vol] 107 mmol/L 95-114 [facility] Serum or plasma creatinine m easurement with calculation of estimated glomerular filtrOrdered By: Gilson Castro on 08-19-2022 Creatinine and Glomerular filtration rate.predicted panel (S/P/Bld) 0.73 mg/dL 0.44-1.03 [facility] Serum or plasma creatinine m easurement with calculation of estimated glomerular filtrOrdered By: Colten Fry on 08-19-2022 Creatinine and Glomerular filtration rate.predicted panel (S/P/Bld) 0.82 mg/dL 0.44-1.03 [facility] Serum or plasma glucose tammy urement (mass/volume)Ordered By: Gilson Castro on 08-19-2022 Glucose [Mass/Vol] 108 mg/dL 70-100 [facility] Comment on above: ADA recommended refe rence [...] on 08-19-2022 Glucose [Mass/Vol] 131 mg/dL 70-100 [facility] Comment on above: ADA recommended refe rence [...] on 08-19-2022 Potassium [Moles/Vol] 3.1 mmol/L 3.5-5.1 [facility] Serum or plasma potassium me asurement (moles/volume)Ordered By: Colten Fry on 08-19-2022 Potassium [Moles/Vol] 3.9 mmol/L 3.5-5.1 [facility] Serum or plasma sodium measu rement (moles/volume)Ordered By: Gilson Castro on 08-19-2022 Sodium [Moles/Vol] 138 mmol/L 136-146 [facility] Serum or plasma sodium measu rement (moles/volume)Ordered By: Colten Fry on 08-19-2022 Sodium [Moles/Vol] 142 mmol/L 136-146 [facility] Serum or plasma total biliru bin measurement (mass/volume)Ordered By: Gilson Castro on 08-19-2022 Bilirubin [Mass/Vol] 0.5 mg/dL 0.3-1.2 [facility] Serum or plasma total biliru bin measurement (mass/volume)Ordered By: Colten Fry on 08-19-2022 Bilirubin [Mass/Vol] 0.6 mg/dL 0.3-1.2 [facility] Serum or plasma total carbon dioxide measurement (moles/volume)Ordered By: Gilson Castro on 08-19-2022 CO2 [Moles/Vol] 23.3 mmol/L 22.0-30.0 [facility] Serum or plasma total carbon dioxide measurement (moles/volume)Ordered By: Colten Fry on 08-19-2022 CO2 [Moles/Vol] 19.4 mmol/L 22.0-30.0 [facility] Serum or plasma urea nitroge n measurement (mass/volume)Ordered By: Gilson Castro on 08-19-2022 Urea nitrogen [Mass/Vol] 15 mg/dL 08-20 [facility] Serum or plasma urea nitroge n measurement (mass/volume)Ordered By: Colten Fry on 08-19-2022 Urea nitrogen [Mass/Vol] 14 mg/dL 08-20 [facility] Specific gravity Auto test s trip (U) [Rel density]Ordered By: Gilson Castro on 08-19-2022 Specific gravity (U) [Rel density] 1.026 1.001-1.03 0 [facility] Specific gravity Auto test s trip (U) [Rel density]Ordered By: Colten Fry on 08-19-2022 Specific gravity (U) [Rel density] 1.023 1.001-1.03 0 [facility] Squamous epithelial cells de tection in urine sediment by light microscopyOrdered By: Gilson Castro on 08-19-2022 Epithelial cells.squamous LM Ql (Urine sed) 20-30 [HPF] 0-2 [facility] Squamous epithelial cells de tection in urine sediment by light microscopyOrdered By: Colten Fry on 08-19-2022 Epithelial cells.squamous LM Ql (Urine sed) 20-30 [HPF] 0-2 [facility] Urine bacteria detection by automated methodOrdered By: Gilson Castro on 08-19-2022 Bacteria Auto Ql (U) 2+ None Seen [facility] Urine bacteria detection by automated methodOrdered By: Colten Fry on 08-19-2022 Bacteria Auto Ql (U) 1+ None Seen [facility] Urine clarity by refractomet ry automatedOrdered By: Gilson Castro on 08-19-2022 Clarity Refractometry automated (U) Turbid Clear [facility] Urine clarity by refractomet ry automatedOrdered By: Colten Fry on 08-19-2022 Clarity Refractometry automated (U) Cloudy Clear [facility] Urine glucose measurement by automated test strip (mass/volume)Ordered By: Gilson Castro on 08-19-2022 Glucose Auto test strip (U) [Mass/Vol] Normal mg/dL Normal [facility] Urine glucose measurement by automated test strip (mass/volume)Ordered By: Colten Fry on 08-19-2022 Glucose Auto test strip (U) [Mass/Vol] Normal mg/dL Normal [facility] Urine hemoglobin detection b y automated test stripOrdered By: Gilson Castro on 08-19-2022 Hemoglobin Auto test strip Ql (U) Negative Negative [facility] Urine hemoglobin detection b y automated test stripOrdered By: Colten Fry on 08-19-2022 Hemoglobin Auto test strip Ql (U) Negative Negative [facility] Urine leukocyte esterase det ection by automated test stripOrdered By: Gilson Castro on 08-19-2022 Leukocyte esterase Auto test strip Ql (U) 2+ Negative [facility] Urine leukocyte esterase det ection by automated test stripOrdered By: Colten Fry on 08-19-2022 Leukocyte esterase Auto test strip Ql (U) 1+ Negative [facility] Urobilinogen Auto test strip (U) [Mass/Vol]Ordered By: Gilson Castro on 08-19-2022 Urobilinogen (U) [Mass/Vol] Normal mg/dL Normal [facility] Urobilinogen Auto test strip (U) [Mass/Vol]Ordered By: Colten Fry on 08-19-2022 Urobilinogen (U) [Mass/Vol] Normal mg/dL Normal [facility] pH Auto test strip (U)Ordere d By: Gilson Castro on 08-19-2022 pH (U) 8.0 [pH] 5.0-9.0 [facility] pH Auto test strip (U)Ordere d By: Colten Fry on 08-19-2022 pH (U) 6.0 [pH] 5.0-9.0 [facility] COVID-19 SOFIAOrdered By: Lul Rivera on 08-18-2022 SARS-CoV+SARS-CoV-2 (COVID-19) Ag IA.rapid Ql (Resp) Negative Negative [facility] Comment on above: This is a duplicate Adia SARS Antigen (JOSE A) result to be used for statistical tracking purpose only. No Panel InformationOrdered By: Joss Rivera on 08-18-2022 SARS Antigen (LFIA) [facility] Basophils Auto (Bld) [#/Vol] Ordered By: Modesta Chand on 06-25-2022 Basophils (Bld) [#/Vol] 0.1 10*3/uL 0.0-0.1 [facility] Basophils/100 WBC Auto (Bld) Ordered By: Modesta Chand on 06-25-2022 Basophils/100 WBC (Bld) 1.2 % . [facility] Blood hemoglobin measurement (mass/volume)Ordered By: Modesta Chand on 06-25-2022 Hemoglobin (Bld) [Mass/Vol] 13.8 g/dL 12.0-16.0 [facility] Blood leukocytes automated c ount (number/volume)Ordered By: Modesta Chand on 06-25-2022 WBC (Bld) [#/Vol] 7.9 10*3/uL 4.5-13.5 [facility] Body fluid albumin measureme nt (mass/volume)Ordered By: Modesta Chand on 06-25-2022 Albumin (Body fld) [Mass/Vol] 4.5 g/dL 3.2-5.[address] [facility] [address] biopsyOrdered By: Yasmine Chand on 06-25-2022 Transferrin [Mass/Vol] 328 mg/dL 180-380 [facility] Creatinine and Glomerular fi ltration rate.predicted panel (S/P/Bld)Ordered By: Modesta Chand on 06-25-2022 Creatinine [Mass/Vol] 0.67 mg/dL 0.44-1.03 [facility] Eosinophils Auto (Bld) [#/Vo l]Ordered By: Modesta Chand on 06-25-2022 Eosinophils (Bld) [#/Vol] 0.6 10*3/uL 0.0-0.7 [facility] Eosinophils/100 WBC Auto (Bl d)Ordered By: Modesta Chand on 06-25-2022 Eosinophils/100 WBC (Bld) 7.2 % . [facility] Erythrocyte distribution wid th Auto (RBC) [Ratio]Ordered By: Modesta Chand on 06-25-2022 Erythrocyte distribution width (RBC) [Ratio] 13.6 % 11.9-15.3 [facility] Estimated glomerular filtrat ion rate (GFR) non- AmericanOrdered By: Modesta Chand on 06-25-2022 GFR/1.73 sq M.predicted among non-blacks MDRD (S/P/Bld) [Vol rate/Area] > 60 mL/Min [facility] Ferritin [Mass/volume] in Se rum or PlasmaOrdered By: Modesta Chand on 06-25-2022 Ferritin [Mass/Vol] 28.5 ng/mL 11-306.8 [facility] Globulin Calc (S) [Mass/Vol] Ordered By: Modesta Chand on 06-25-2022 Globulin (S) [Mass/Vol] 2.5 g/dL [facility] Hematocrit Auto (Bld) [Volum e fraction]Ordered By: Modesta Chand on 06-25-2022 Hematocrit (Bld) [Volume fraction] 42.3 % 36.0-46.0 [facility] Iron [Mass/volume] in Serum or PlasmaOrdered By: Modesta Chand on 06-25-2022 Iron [Mass/Vol] 52 ug/dL 40-150 [facility] Iron binding capacity [Mass/ volume] in Serum or PlasmaOrdered By: Modesta Chand on 06-25-2022 Iron binding capacity [Mass/Vol] 459 ug/dL 255-450 [facility] Iron saturation [Mass Fracti on] in Serum or PlasmaOrdered By: Modesta Chand on 06-25-2022 Iron saturation [Mass fraction] 11.0 % 20-50 [facility] - Hematology and Cell countsOrdered By: Modesta Chand on 06-25-2022 Nucleated RBC/100 WBC (Bld) [Ratio] 0.0 % 0-0.5 [facility] Lymphocytes Auto (Bld) [#/Vo l]Ordered By: Modesta Chand on 06-25-2022 Lymphocytes (Bld) [#/Vol] 2.1 10*3/uL 1.20-4.8 [facility] Lymphocytes/100 WBC Auto (Bl d)Ordered By: Modesta Chand on 06-25-2022 Lymphocytes/100 WBC (Bld) 26.9 % . [facility] MCH Auto (RBC) [Entitic mass ]Ordered By: Modesta Chand on 06-25-2022 MCH (RBC) [Entitic mass] 28.1 pg 25.0-35.0 [facility] MCHC Auto (RBC) [Mass/Vol]Or dered By: Modesta Chand on 06-25-2022 MCHC (RBC) [Mass/Vol] 32.7 g/dL 31.0-37.0 [facility] MCV Auto (RBC) [Entitic vol] Ordered By: Modesta Chand on 06-25-2022 MCV (RBC) [Entitic vol] 85.8 fL 78-102 [facility] Monocytes Auto (Bld) [#/Vol] Ordered By: Modesta Chand on 06-25-2022 Monocytes (Bld) [#/Vol] 0.6 10*3/uL 0.1-1.00 [facility] Monocytes/100 WBC Auto (Bld) Ordered By: Modesta Chand on 06-25-2022 Monocytes/100 WBC (Bld) 7.2 % . [facility] Neutrophils Auto (Bld) [#/Vo l]Ordered By: Modesta Chand on 06-25-2022 Neutrophils (Bld) [#/Vol] 4.5 10*3/uL 1.2-7.7 [facility] Neutrophils/100 WBC Auto (Bl d)Ordered By: Modesta Chand on 06-25-2022 Neutrophils/100 WBC (Bld) 57.5 % . [facility] No Panel InformationOrdered By: Modesta Chand on 06-25-2022 25-Hydroxy Vitamin D Total 35.9 ng/mL 30-100 [facility] Comment on above: VITAMIN D STATUS 25( [place])VITAMIN D RANGE (ng/mL) Deficient <20 Insufficient 20 to <30 Sufficient 30 to 100 Reference: Danica MF,Chayo WOODRUFF, Sony GUERRERO, et al. Evaluation,treatment, and prevention of vitamin D deficiency; an Endocrine Society clinical practice guideline. JCEM. 2010; 96(7):1911-30. Absolute Reticulocyte Count 0.066 10*6/uL 0.024-0.08 4 [facility] Estimated GFR () > 60 mL/Min [facility] Comment on above: GFR estimated refere nce range: According to KDOQI guidelines, <60 ml/min/1.73m2 is sufficient to diagnose a patient with chronic kidney disease. Percent Reticulocyte Count 1.3 % 0.5-1.5 [facility] Creatinine Clearance (Chem N/A [facility] Platelet mean volume Auto (B ld) [Entitic vol]Ordered By: Modesta Chand on 06-25-2022 Platelet mean volume (Bld) [Entitic vol] 9.0 fL 6.3-10.7 [facility] Platelets Auto (Bld) [#/Vol] Ordered By: Modesta Chand on 06-25-2022 Platelets (Bld) [#/Vol] 263 10*3/uL 150-450 [facility] Protein [Mass/volume] in Ser um or PlasmaOrdered By: Modesta Chand on 06-25-2022 Protein [Mass/Vol] 7.0 g/dL 6.1-7.9 [facility] RBC Auto (Bld) [#/Vol]Ordere d By: Modesta Chand on 06-25-2022 RBC (Bld) [#/Vol] 4.94 10*6/uL 4.10-5.10 [facility] Serum or plasma alanine florez otransferase measurement without P-5'-P (enzymatic activiOrdered By: Modesta Chand on 06-25-2022 ALT No additional P-5'-P [Catalytic activity/Vol] 18 U/L 10-60 [facility] Serum or plasma albumin/glob ulin mass ratioOrdered By: Modesta Chand on 06-25-2022 Albumin/Globulin [Mass ratio] 1.8 {ratio} [facility] Serum or plasma alkaline justin sphatase measurement (enzymatic activity/volume)Ordered By: Modesta Chand on 06-25-2022 ALP [Catalytic activity/Vol] 65 U/L 32-92 [facility] Serum or plasma aspartate am inotransferase measurement (enzymatic activity/volume)Ordered By: Modesta Chand on 06-25-2022 AST [Catalytic activity/Vol] 18 U/L 10-42 [facility] Serum or plasma calcium tammy urement (mass/volume)Ordered By: Modesta Chand on 06-25-2022 Calcium [Mass/Vol] 10.2 mg/dL 8.2-10.2 [facility] Serum or plasma chloride judy surement (moles/volume)Ordered By: Modesta Chand on 06-25-2022 Chloride [Moles/Vol] 102 mmol/L 95-114 [facility] Serum or plasma glucose tammy urement (mass/volume)Ordered By: Modesta Chand on 06-25-2022 Glucose [Mass/Vol] 87 mg/dL 70-100 [facility] Comment on above: ADA recommended refe rence range Random Glucose Reference Range is dependent on time and content of last meal. Glucose of more than 200 mg/dL in a nonstressed, ambulatory subject supports the diagnosis of Diabetes Mellitus. Serum or plasma potassium me asurement (moles/volume)Ordered By: Modesta Chand on 06-25-2022 Potassium [Moles/Vol] 4.4 mmol/L 3.5-5.1 [facility] Serum or plasma sodium measu rement (moles/volume)Ordered By: Modesta Chand on 06-25-2022 Sodium [Moles/Vol] 137 mmol/L 136-146 [facility] Serum or plasma total biliru bin measurement (mass/volume)Ordered By: Modesta Chand on 06-25-2022 Bilirubin [Mass/Vol] 0.4 mg/dL 0.3-1.2 [facility] Serum or plasma total carbon dioxide measurement (moles/volume)Ordered By: Modesta Chand on 06-25-2022 CO2 [Moles/Vol] 23.8 mmol/L 22.0-30.0 [facility] Serum or plasma urea nitroge n measurement (mass/volume)Ordered By: Modesta Chand on 06-25-2022 Urea nitrogen [Mass/Vol] 14 mg/dL 9-23 [facility] TSH DL <= 0.005 mIU/L QnOrde red By: Modesta Chand on 06-25-2022 TSH Qn 1.05 m[IU]/L 0.45-5.33 [facility] Thyroxine (T4) free [Mass/vo lume] in Serum or PlasmaOrdered By: Modesta Chand on 06-25-2022 Free T4 [Mass/Vol] 0.74 ng/dL 0.61-1.12 [facility] HCG ( test) IA.rapi d Ql (U)Ordered By: Brennen Britt on 06-09-2022 HCG ( test) Ql (U) Negative [facility] COVID-19 Positive/NegativeOr dered By: Brennen Britt on 06-07-2022 SARS-CoV-2 (COVID-19) N gene JANAK+probe Ql (Resp) Negative Negative [facility] Comment on above: Testing for SARS-CoV -2 by RT-PCR This test was developed and its performance characteristics determined by [employer] and validated at the [facility]. This test has not been FDA [...] on 05-26-2022 Albumin [Mass/Vol] 3.9 g/dL 3.2-5.5 [facility] Basophils Auto (Bld) [#/Vol] Ordered By: Modesta Chand on 05-26-2022 Basophils (Bld) [#/Vol] 0.1 10*3/uL 0.0-0.1 [facility] Basophils/100 WBC Auto (Bld) Ordered By: Modesta Chand on 05-26-2022 Basophils/100 WBC (Bld) 1.1 % . [facility] Blood hemoglobin measurement (mass/volume)Ordered By: Modesta Chand on 05-26-2022 Hemoglobin (Bld) [Mass/Vol] 13.6 g/dL 12.0-16.0 [facility] Blood leukocytes automated c ount (number/volume)Ordered By: Modesta Chand on 05-26-2022 WBC (Bld) [#/Vol] 10.6 10*3/uL 4.5-13.5 [facility] C reactive protein [Mass/vol ume] in Serum or PlasmaOrdered By: Modesta Chand on 05-26-2022 CRP [Mass/Vol] 0.6 mg/dL 0.0-1.[address] [facility] [address] biopsyOrdered By: Yasmine Chand on 05-26-2022 Transferrin [Mass/Vol] 292 mg/dL 180-380 [facility] Creatinine and Glomerular fi ltration rate.predicted panel (S/P/Bld)Ordered By: Modesta Chand on 05-26-2022 Creatinine [Mass/Vol] 0.63 mg/dL 0.44-1.03 [facility] Eosinophils Auto (Bld) [#/Vo l]Ordered By: Modesta Chand on 05-26-2022 Eosinophils (Bld) [#/Vol] 0.4 10*3/uL 0.0-0.7 [facility] Eosinophils/100 WBC Auto (Bl d)Ordered By: Modesta Chand on 05-26-2022 Eosinophils/100 WBC (Bld) 3.6 % . [facility] Erythrocyte distribution wid th Auto (RBC) [Ratio]Ordered By: Modesta Chand on 05-26-2022 Erythrocyte distribution width (RBC) [Ratio] 13.7 % 11.9-15.3 [facility] Erythrocyte sedimentation ra te by Photometric methodOrdered By: Modesta Chadn on 05-26-2022 ESR Photometric method (Bld) [Velocity] 5 mm/hr 0-19 [facility] Estimated glomerular filtrat ion rate (GFR) non- AmericanOrdered By: Modesta Chand on 05-26-2022 GFR/1.73 sq M.predicted among non-blacks MDRD (S/P/Bld) [Vol rate/Area] > 60 mL/Min [facility] Ferritin [Mass/volume] in Se rum or PlasmaOrdered By: Modesta Chand on 05-26-2022 Ferritin [Mass/Vol] 14.2 ng/mL 11-306.8 [facility] Folate [Mass/volume] in Seru m or PlasmaOrdered By: Modesta Chand on 05-26-2022 Folate [Mass/Vol] 13.0 ng/mL >5.9 [facility] Comment on above: Folate reference ran ge: >5.9 ng/ml The WHO technical consultation on folate and vitamin b12 deficiencies has determined that folate concentrations less than 4 ng/ml are considered deficient. Globulin Calc (S) [Mass/Vol] Ordered By: Modesta Chand on 05-26-2022 Globulin (S) [Mass/Vol] 2.3 g/dL [facility] Glucose mean value [Mass/vol ume] in Blood Estimated from glycated hemoglobinOrdered By: Modesta Chand on 05-26-2022 Average glucose Estimated from glycated hemoglobin (Bld) [Mass/Vol] 111 mg/dL [facility] Hematocrit Auto (Bld) [Volum e fraction]Ordered By: Modesta Chand on 05-26-2022 Hematocrit (Bld) [Volume fraction] 41.4 % 36.0-46.0 [facility] Hemoglobin A1c percentageOrd ered By: Modesta Chand on 05-26-2022 HbA1c (Bld) [Mass fraction] 5.5 % 4.3-5.6 [facility] Comment on above: Increased risk for d iabetes: 5.7 - 6.4 diabetes: >6.4 glycemic control for adults with diabetes: <7.0 Iron [Mass/volume] in Serum or PlasmaOrdered By: Modesta Chand on 05-26-2022 Iron [Mass/Vol] 63 ug/dL 40-150 [facility] Iron binding capacity [Mass/ volume] in Serum or PlasmaOrdered By: Modesta Chand on 05-26-2022 Iron binding capacity [Mass/Vol] 409 ug/dL 255-450 [facility] Iron saturation [Mass Fracti on] in Serum or PlasmaOrdered By: Modesta Chand on 05-26-2022 Iron saturation [Mass fraction] 15.0 % 20-50 [facility] - Chemistry and C hemistry - challengeOrdered By: Modesta Chand on 05-26-2022 Cobalamin (Vitamin B12) [Mass/Vol] 329 pg/mL 180-914 [facility] - Hematology and Cell countsOrdered By: Modesta Chand on 05-26-2022 Nucleated RBC/100 WBC (Bld) [Ratio] 0.0 % 0-0.5 [facility] Lymphocytes Auto (Bld) [#/Vo l]Ordered By: Modesta Chand on 05-26-2022 Lymphocytes (Bld) [#/Vol] 2.3 10*3/uL 1.20-4.8 [facility] Lymphocytes/100 WBC Auto (Bl d)Ordered By: Modesta Chadn on 05-26-2022 Lymphocytes/100 WBC (Bld) 21.6 % . [facility] MCH Auto (RBC) [Entitic mass ]Ordered By: Modesta Chand on 05-26-2022 MCH (RBC) [Entitic mass] 28.6 pg 25.0-35.0 [facility] MCHC Auto (RBC) [Mass/Vol]Or dered By: Modesta Chand on 05-26-2022 MCHC (RBC) [Mass/Vol] 33.0 g/dL 31.0-37.0 [facility] MCV Auto (RBC) [Entitic vol] Ordered By: Modesta Chand on 05-26-2022 MCV (RBC) [Entitic vol] 86.6 fL 78-102 [facility] Monocytes Auto (Bld) [#/Vol] Ordered By: Modesta Chand on 05-26-2022 Monocytes (Bld) [#/Vol] 0.6 10*3/uL 0.1-1.00 [facility] Monocytes/100 WBC Auto (Bld) Ordered By: Modesta Chand on 05-26-2022 Monocytes/100 WBC (Bld) 5.9 % . [facility] Neutrophils Auto (Bld) [#/Vo l]Ordered By: Modesta Chand on 05-26-2022 Neutrophils (Bld) [#/Vol] 7.2 10*3/uL 1.2-7.7 [facility] Neutrophils/100 WBC Auto (Bl d)Ordered By: Modesta Chand on 05-26-2022 Neutrophils/100 WBC (Bld) 67.8 % . [facility] No Panel InformationOrdered By: Modesta Chand on 05-26-2022 25-Hydroxy Vitamin D Total 26.9 ng/mL 30-100 [facility] Comment on above: VITAMIN D STATUS 25( [place])VITAMIN D RANGE (ng/mL) Deficient <20 Insufficient 20 to <30 Sufficient 30 to 100 Reference: Danica MF,Chayo NC, Sony GUERRERO, et al. Evaluation,treatment, and prevention of vitamin D deficiency; an Endocrine Society clinical practice guideline. JCEM. 2010; 96(7):1911-30. Estimated GFR () > 60 mL/Min [facility] Comment on above: GFR estimated refere nce range: According to KDOQI guidelines, <60 ml/min/1.73m2 is sufficient to diagnose a patient with chronic kidney disease. Pharmacy Creatinine Clearance (Chem N/A [facility] Platelet mean volume Auto (B ld) [Entitic vol]Ordered By: Modesta Chand on 05-26-2022 Platelet mean volume (Bld) [Entitic vol] 8.9 fL 6.3-10.7 [facility] Platelets Auto (Bld) [#/Vol] Ordered By: Modesta Chand on 05-26-2022 Platelets (Bld) [#/Vol] 286 10*3/uL 150-450 [facility] Protein [Mass/volume] in Ser um or PlasmaOrdered By: Modesta Chand on 05-26-2022 Protein [Mass/Vol] 6.2 g/dL 6.1-7.9 [facility] RBC Auto (Bld) [#/Vol]Ordere d By: Modesta Chand on 05-26-2022 RBC (Bld) [#/Vol] 4.78 10*6/uL 4.10-5.10 [facility] Serum nuclear antibody titer Ordered By: Modesta Chand on 05-26-2022 Nuclear Ab (S) [Titer] Negative . [facility] Comment on above: Negative <1:80 Borderline 1:80 Positive >1:80 ICAP nomenclature: [id number] For more information about Hep-2 cell patterns use ANApatterns.org, the official website for the International Consensus on Antinuclear Antibody (EDMOND) Patterns (ICAP). Performed at: [facility] ([facility])[place] [id number] [employer] Maintenance Worker: James Nelson PhD, Phone: [phone] Serum or plasma alanine florez otransferase measurement without P-5'-P (enzymatic activiOrdered By: Modesta Chand on 05-26-2022 ALT No additional P-5'-P [Catalytic activity/Vol] 50 U/L 10-60 [facility] Serum or plasma albumin/glob ulin mass ratioOrdered By: Modesta Chand on 05-26-2022 Albumin/Globulin [Mass ratio] 1.7 {ratio} [facility] Serum or plasma alkaline justin sphatase measurement (enzymatic activity/volume)Ordered By: Modesta Chand on 05-26-2022 ALP [Catalytic activity/Vol] 58 U/L 32-92 [facility] Serum or plasma aspartate am inotransferase measurement (enzymatic activity/volume)Ordered By: Modesta Chand on 05-26-2022 AST [Catalytic activity/Vol] 25 U/L 10-42 [facility] Serum or plasma calcium tammy urement (mass/volume)Ordered By: Modesta Chand on 05-26-2022 Calcium [Mass/Vol] 9.3 mg/dL 8.2-10.2 [facility] Serum or plasma chloride judy surement (moles/volume)Ordered By: Modesta Chand on 05-26-2022 Chloride [Moles/Vol] 103 mmol/L 95-114 [facility] Serum or plasma glucose tammy urement (mass/volume)Ordered By: Modesta Chand on 05-26-2022 Glucose [Mass/Vol] 111 mg/dL 70-100 [facility] Comment on above: ADA recommended refe rence range Random Glucose Reference Range is dependent on time and content of last meal. Glucose of more than 200 mg/dL in a nonstressed, ambulatory subject supports the diagnosis of Diabetes Mellitus. Serum or plasma potassium me asurement (moles/volume)Ordered By: Modesta Cahnd on 05-26-2022 Potassium [Moles/Vol] 4.3 mmol/L 3.5-5.1 [facility] Serum or plasma sodium measu rement (moles/volume)Ordered By: Modesta Chand on 05-26-2022 Sodium [Moles/Vol] 137 mmol/L 136-146 [facility] Serum or plasma total biliru bin measurement (mass/volume)Ordered By: Modesta Chand on 05-26-2022 Bilirubin [Mass/Vol] 0.5 mg/dL 0.3-1.2 [facility] Serum or plasma total carbon dioxide measurement (moles/volume)Ordered By: Modesta Chand on 05-26-2022 CO2 [Moles/Vol] 24.9 mmol/L 22.0-30.0 [facility] Serum or plasma urea nitroge n measurement (mass/volume)Ordered By: Modesta Chand on 05-26-2022 Urea nitrogen [Mass/Vol] 9 mg/dL 9-23 [facility] Urine culture routineOrdered By: Gilson Castro on 05-18-2022 Bacteria identified Cx Nom (U) 2 Days [facility] Amphetamine Screen Ql (U)Ord ered By: Gilson Castro on 05-16-2022 Amphetamines Ql (U) Negative Negative [facility] Automated erythrocytes count in urine sediment (number/area)Ordered By: Gilson Castro on 05-16-2022 RBC Auto (Urine sed) [#/Area] 3-4 [HPF] 0-4 [facility] Automated leukocytes count i n urine sediment (number/area)Ordered By: Gilson Castro on 05-16-2022 WBC Auto (Urine sed) [#/Area] 5-9 [HPF] 0-4 [facility] Automated urine hyaline cast s count (number/volume)Ordered By: Gilson Castro on 05-16-2022 Hyaline casts Auto (U) [#/Vol] None seen [LPF] 0-1 [facility] Barbiturates [Presence] in U rineOrdered By: Gilson Castro on 05-16-2022 Barbiturates Ql (U) Positive Negative [facility] Basophils Auto (Bld) [#/Vol] Ordered By: Gilson Castro on 05-16-2022 Basophils (Bld) [#/Vol] 0.0 10*3/uL 0.0-0.1 [facility] Basophils/100 WBC Auto (Bld) Ordered By: Gilson Castro on 05-16-2022 Basophils/100 WBC (Bld) 0.4 % . [facility] Benzodiazepines [Presence] i n UrineOrdered By: Gilson Castro on 05-16-2022 Benzodiazepines Ql (U) Negative Negative [facility] Bilirubin Test strip Ql (U)O rdered By: Gilson Castro on 05-16-2022 Bilirubin Ql (U) Negative Negative [facility] Blood hemoglobin measurement (mass/volume)Ordered By: Gilson Castro on 05-16-2022 Hemoglobin (Bld) [Mass/Vol] 13.4 g/dL 12.0-16.0 [facility] Blood leukocytes automated c ount (number/volume)Ordered By: Gilson Castro on 05-16-2022 WBC (Bld) [#/Vol] 10.0 10*3/uL 4.5-13.5 [facility] Body fluid albumin measureme nt (mass/volume)Ordered By: Gilson Castro on 05-16-2022 Albumin (Body fld) [Mass/Vol] 4.3 g/dL 3.2-5.5 [facility] Cannabinoids [Presence] in U rine by Screen methodOrdered By: Gilson Castro on 05-16-2022 Cannabinoids Screen Ql (U) Positive Negative [facility] Comment on above: These are unconfirme [...] (Urine sed) None seen [LPF] None Seen [facility] Color Auto (U)Ordered By: Pierce Castro on 05-16-2022 Color (U) Yellow Yellow [facility] Creatinine and Glomerular fi ltration rate.predicted panel (S/P/Bld)Ordered By: Gilson Castro on 05-16-2022 Creatinine [Mass/Vol] 0.80 mg/dL 0.44-1.03 [facility] Eosinophils Auto (Bld) [#/Vo l]Ordered By: Gilson Castro on 05-16-2022 Eosinophils (Bld) [#/Vol] 0.1 10*3/uL 0.0-0.7 [facility] Eosinophils/100 WBC Auto (Bl d)Ordered By: Gilson Castro on 05-16-2022 Eosinophils/100 WBC (Bld) 0.7 % . [facility] Erythrocyte distribution wid th Auto (RBC) [Ratio]Ordered By: Gilson Castro on 05-16-2022 Erythrocyte distribution width (RBC) [Ratio] 13.4 % 11.9-15.3 [facility] Estimated glomerular filtrat ion rate (GFR) non- AmericanOrdered By: Gilson Castro on 05-16-2022 GFR/1.73 sq M.predicted among non-blacks MDRD (S/P/Bld) [Vol rate/Area] > 60 mL/Min [facility] Globulin Calc (S) [Mass/Vol] Ordered By: Gilson Castro on 05-16-2022 Globulin (S) [Mass/Vol] 2.7 g/dL [facility] HCG ( test) IA.rapi d Ql (U)Ordered By: Gilson Castro on 05-16-2022 HCG ( test) Ql (U) Negative [facility] Hematocrit Auto (Bld) [Volum e fraction]Ordered By: Gilson Castro on 05-16-2022 Hematocrit (Bld) [Volume fraction] 39.4 % 36.0-46.0 [facility] Ketones Auto test strip (U) [Mass/Vol]Ordered By: Gilson Castro on 05-16-2022 Ketones (U) [Mass/Vol] 3+ Negative [facility] Laboratory - Chemistry and C hemistry - challengeOrdered By: Gilson Castro on 05-16-2022 Lipase [Catalytic activity/Vol] 26.0 U/L 22-51 [facility] - Drug toxicology Ordered By: Gilson Castro on 05-16-2022 Opiates Ql (U) Negative Negative [facility] Laboratory - Hematology and Cell countsOrdered By: Gilson Castro on 05-16-2022 Nucleated RBC/100 WBC (Bld) [Ratio] 0.0 % 0-0.5 [facility] Lymphocytes Auto (Bld) [#/Vo l]Ordered By: Gilson Castro on 05-16-2022 Lymphocytes (Bld) [#/Vol] 1.9 10*3/uL 1.20-4.8 [facility] Lymphocytes/100 WBC Auto (Bl d)Ordered By: Gilson Castro on 05-16-2022 Lymphocytes/100 WBC (Bld) 18.7 % . [facility] MCH Auto (RBC) [Entitic mass ]Ordered By: Gilson Castro on 05-16-2022 MCH (RBC) [Entitic mass] 28.6 pg 25.0-35.0 [facility] MCHC Auto (RBC) [Mass/Vol]Or dered By: Gilson Castro on 05-16-2022 MCHC (RBC) [Mass/Vol] 34.1 g/dL 31.0-37.0 [facility] MCV Auto (RBC) [Entitic vol] Ordered By: Gilson Castro on 05-16-2022 MCV (RBC) [Entitic vol] 84.0 fL 78-102 [facility] Monocytes Auto (Bld) [#/Vol] Ordered By: Gilson Castro on 05-16-2022 Monocytes (Bld) [#/Vol] 0.9 10*3/uL 0.1-1.00 [facility] Monocytes/100 WBC Auto (Bld) Ordered By: Gilson Castro on 05-16-2022 Monocytes/100 WBC (Bld) 9.2 % . [facility] Neutrophils Auto (Bld) [#/Vo l]Ordered By: Gilson Castro on 05-16-2022 Neutrophils (Bld) [#/Vol] 7.1 10*3/uL 1.2-7.7 [facility] Neutrophils/100 WBC Auto (Bl d)Ordered By: Gilson Castro on 05-16-2022 Neutrophils/100 WBC (Bld) 71.0 % . [facility] Nitrite Test strip Ql (U)Ord ered By: Gilson Castro on 05-16-2022 Nitrite Ql (U) Negative Negative [facility] No Panel InformationOrdered By: Gilson Castro on 05-16-2022 Estimated GFR () > 60 mL/Min [facility] Comment on above: GFR estimated refere nce range: According to KDOQI guidelines, <60 ml/min/1.73m2 is sufficient to diagnose a patient with chronic kidney disease. Pharmacy Creatinine Clearance (Chem 109.65 [facility] Phencyclidine Screen Ql (U)O rdered By: Gilson Castro on 05-16-2022 Phencyclidine Ql (U) Negative Negative [facility] Platelet mean volume Auto (B ld) [Entitic vol]Ordered By: Gilson Castro on 05-16-2022 Platelet mean volume (Bld) [Entitic vol] 8.5 fL 6.3-10.7 [facility] Platelets Auto (Bld) [#/Vol] Ordered By: Gilson Castro on 05-16-2022 Platelets (Bld) [#/Vol] 241 10*3/uL 150-450 [facility] Protein Auto test strip (U) [Mass/Vol]Ordered By: Gilson Castro on 05-16-2022 Protein (U) [Mass/Vol] Trace mg/dL Negative F [facility] Protein [Mass/volume] in Ser um or PlasmaOrdered By: Gilson Castro on 05-16-2022 Protein [Mass/Vol] 7.0 g/dL 6.1-7.9 [facility] RBC Auto (Bld) [#/Vol]Ordere d By: Gilson Castro on 05-16-2022 RBC (Bld) [#/Vol] 4.69 10*6/uL 4.10-5.10 [facility] Serum or plasma alanine florez otransferase measurement without P-5'-P (enzymatic activiOrdered By: Gilson Castro on 05-16-2022 ALT No additional P-5'-P [Catalytic activity/Vol] 23 U/L 10-60 [facility] Serum or plasma albumin/glob ulin mass ratioOrdered By: Gilson Castro on 05-16-2022 Albumin/Globulin [Mass ratio] 1.6 {ratio} [facility] Serum or plasma alkaline justin sphatase measurement (enzymatic activity/volume)Ordered By: Gilson Castro on 05-16-2022 ALP [Catalytic activity/Vol] 58 U/L 32-92 [facility] Serum or plasma aspartate am inotransferase measurement (enzymatic activity/volume)Ordered By: Gilson Castro on 05-16-2022 AST [Catalytic activity/Vol] 22 U/L 10-42 [facility] Serum or plasma calcium tammy urement (mass/volume)Ordered By: Gilson Castro on 05-16-2022 Calcium [Mass/Vol] 9.2 mg/dL 8.2-10.2 [facility] Serum or plasma chloride judy surement (moles/volume)Ordered By: Gilson Castro on 05-16-2022 Chloride [Moles/Vol] 97 mmol/L 95-114 [facility] Serum or plasma glucose tammy urement (mass/volume)Ordered By: Gilson Castro on 05-16-2022 Glucose [Mass/Vol] 90 mg/dL 70-100 [facility] Comment on above: ADA recommended refe rence range Random Glucose Reference Range is dependent on time and content of last meal. Glucose of more than 200 mg/dL in a nonstressed, ambulatory subject supports the diagnosis of Diabetes Mellitus. Serum or plasma potassium me asurement (moles/volume)Ordered By: Gilson Castro on 05-16-2022 Potassium [Moles/Vol] 3.2 mmol/L 3.5-5.1 [facility] Serum or plasma sodium measu rement (moles/volume)Ordered By: Gilson Castro on 05-16-2022 Sodium [Moles/Vol] 135 mmol/L 136-146 [facility] Serum or plasma total biliru bin measurement (mass/volume)Ordered By: Gilson Castro on 05-16-2022 Bilirubin [Mass/Vol] 1.0 mg/dL 0.3-1.2 [facility] Serum or plasma total carbon dioxide measurement (moles/volume)Ordered By: Gilson Castro on 05-16-2022 CO2 [Moles/Vol] 24.6 mmol/L 22.0-30.0 [facility] Serum or plasma urea nitroge n measurement (mass/volume)Ordered By: Gilson Castro on 05-16-2022 Urea nitrogen [Mass/Vol] 23 mg/dL 9-23 [facility] Specific gravity Auto test s trip (U) [Rel density]Ordered By: Gilson Castro on 05-16-2022 Specific gravity (U) [Rel density] 1.023 1.001-1.03 0 [facility] Squamous epithelial cells de tection in urine sediment by light microscopyOrdered By: Gilson Castro on 05-16-2022 Epithelial cells.squamous LM Ql (Urine sed) 20-30 [HPF] 0-2 [facility] Urine bacteria detection by automated methodOrdered By: Gilson Castro on 05-16-2022 Bacteria Auto Ql (U) 1+ None Seen [facility] Urine clarity by refractomet ry automatedOrdered By: Gilson Castro on 05-16-2022 Clarity Refractometry automated (U) Turbid Clear [facility] Urine cocaine detectionOrder ed By: Gilson Castro on 05-16-2022 Cocaine Ql (U) Negative Negative [facility] Urine glucose measurement by automated test strip (mass/volume)Ordered By: Gilson Castro on 05-16-2022 Glucose Auto test strip (U) [Mass/Vol] Normal mg/dL Normal [facility] Urine hemoglobin detection b y automated test stripOrdered By: Gilson Castro on 05-16-2022 Hemoglobin Auto test strip Ql (U) Negative Negative [facility] Urine leukocyte esterase det ection by automated test stripOrdered By: iGlson Castro on 05-16-2022 Leukocyte esterase Auto test strip Ql (U) 2+ Negative [facility] Urobilinogen Auto test strip (U) [Mass/Vol]Ordered By: Gilson Castro on 05-16-2022 Urobilinogen (U) [Mass/Vol] Normal mg/dL Normal [facility] pH Auto test strip (U)Ordere d By: Gilson Castro on 05-16-2022 pH (U) 8.0 [pH] 5.0-9.0 [facility] Albumin [Mass/volume] in Ser um or PlasmaOrdered By: Art Bianchi on 05-15-2022 Albumin [Mass/Vol] 4.7 g/dL 3.2-5.5 [facility] Basophils Auto (Bld) [#/Vol] Ordered By: Art Bianchi on 05-15-2022 Basophils (Bld) [#/Vol] 0.0 10*3/uL 0.0-0.1 [facility] Basophils/100 WBC Auto (Bld) Ordered By: Art Bianchi on 05-15-2022 Basophils/100 WBC (Bld) 0.2 % . [facility] Blood hemoglobin measurement (mass/volume)Ordered By: Art Bianchi on 05-15-2022 Hemoglobin (Bld) [Mass/Vol] 13.6 g/dL 12.0-16.0 [facility] Blood leukocytes automated c ount (number/volume)Ordered By: Art Bianchi on 05-15-2022 WBC (Bld) [#/Vol] 14.0 10*3/uL 4.5-13.5 [facility] Creatinine and Glomerular fi ltration rate.predicted panel (S/P/Bld)Ordered By: Art Bianchi on 05-15-2022 Creatinine [Mass/Vol] 0.76 mg/dL 0.44-1.03 [facility] Eosinophils Auto (Bld) [#/Vo l]Ordered By: Art Bianchi on 05-15-2022 Eosinophils (Bld) [#/Vol] 0.0 10*3/uL 0.0-0.7 [facility] Eosinophils/100 WBC Auto (Bl d)Ordered By: Art Bianchi on 05-15-2022 Eosinophils/100 WBC (Bld) 0.4 % . [facility] Erythrocyte distribution wid th Auto (RBC) [Ratio]Ordered By: Art Bianchi on 05-15-2022 Erythrocyte distribution width (RBC) [Ratio] 13.7 % 11.9-15.3 [facility] Estimated glomerular filtrat ion rate (GFR) non- AmericanOrdered By: Art Bianchi on 05-15-2022 GFR/1.73 sq M.predicted among non-blacks MDRD (S/P/Bld) [Vol rate/Area] > 60 mL/Min [facility] Globulin Calc (S) [Mass/Vol] Ordered By: Art Bianchi on 05-15-2022 Globulin (S) [Mass/Vol] 3.2 g/dL [facility] Hematocrit Auto (Bld) [Volum e fraction]Ordered By: Art Bianchi on 05-15-2022 Hematocrit (Bld) [Volume fraction] 41.0 % 36.0-46.0 [facility] Laboratory - Chemistry and C hemistry - challengeOrdered By: Art Bianchi on 05-15-2022 Lipase [Catalytic activity/Vol] 24.0 U/L 22-51 [facility] - Hematology and Cell countsOrdered By: Art Bianchi on 05-15-2022 Nucleated RBC/100 WBC (Bld) [Ratio] 0.0 % 0-0.5 [facility] Lymphocytes Auto (Bld) [#/Vo l]Ordered By: Art Bianchi on 05-15-2022 Lymphocytes (Bld) [#/Vol] 2.6 10*3/uL 1.20-4.8 [facility] Lymphocytes/100 WBC Auto (Bl d)Ordered By: Art Bianchi on 05-15-2022 Lymphocytes/100 WBC (Bld) 18.4 % . [facility] MCH Auto (RBC) [Entitic mass ]Ordered By: Art Bianchi on 05-15-2022 MCH (RBC) [Entitic mass] 28.0 pg 25.0-35.0 [facility] MCHC Auto (RBC) [Mass/Vol]Or dered By: Art Bianchi on 05-15-2022 MCHC (RBC) [Mass/Vol] 33.3 g/dL 31.0-37.0 [facility] MCV Auto (RBC) [Entitic vol] Ordered By: Art Bianchi on 05-15-2022 MCV (RBC) [Entitic vol] 84.1 fL 78-102 [facility] Monocytes Auto (Bld) [#/Vol] Ordered By: Art Bianchi on 05-15-2022 Monocytes (Bld) [#/Vol] 1.2 10*3/uL 0.1-1.00 [facility] Monocytes/100 WBC Auto (Bld) Ordered By: Art Bianchi on 05-15-2022 Monocytes/100 WBC (Bld) 8.3 % . [facility] Neutrophils Auto (Bld) [#/Vo l]Ordered By: Art Bianchi on 05-15-2022 Neutrophils (Bld) [#/Vol] 10.2 10*3/uL 1.2-7.7 [facility] Neutrophils/100 WBC Auto (Bl d)Ordered By: Art Bianchi on 05-15-2022 Neutrophils/100 WBC (Bld) 72.7 % . [facility] No Panel InformationOrdered By: Art Bianchi on 05-15-2022 Estimated GFR () > 60 mL/Min [facility] Comment on above: GFR estimated refere nce range: According to KDOQI guidelines, <60 ml/min/1.73m2 is sufficient to diagnose a patient with chronic kidney disease. Pharmacy Creatinine Clearance (Chem 115.34 [facility] Platelet mean volume Auto (B ld) [Entitic vol]Ordered By: Art Biancih on 05-15-2022 Platelet mean volume (Bld) [Entitic vol] 8.8 fL 6.3-10.7 [facility] Platelets Auto (Bld) [#/Vol] Ordered By: Art Bianchi on 05-15-2022 Platelets (Bld) [#/Vol] 315 10*3/uL 150-450 [facility] Protein [Mass/volume] in Ser um or PlasmaOrdered By: Art Bianchi on 05-15-2022 Protein [Mass/Vol] 7.9 g/dL 6.1-7.9 [facility] RBC Auto (Bld) [#/Vol]Ordere d By: Art Bianchi on 05-15-2022 RBC (Bld) [#/Vol] 4.88 10*6/uL 4.10-5.10 [facility] Serum or plasma alanine florez otransferase measurement without P-5'-P (enzymatic activiOrdered By: Art Bianchi on 05-15-2022 ALT No additional P-5'-P [Catalytic activity/Vol] 25 U/L 10-60 [facility] Serum or plasma albumin/glob ulin mass ratioOrdered By: Art Bianchi on 05-15-2022 Albumin/Globulin [Mass ratio] 1.5 {ratio} [facility] Serum or plasma alkaline justin sphatase measurement (enzymatic activity/volume)Ordered By: Art Bianchi on 05-15-2022 ALP [Catalytic activity/Vol] 66 U/L 32-92 [facility] Serum or plasma aspartate am inotransferase measurement (enzymatic activity/volume)Ordered By: Art Bianchi on 05-15-2022 AST [Catalytic activity/Vol] 33 U/L 10-42 [facility] Serum or plasma calcium tammy urement (mass/volume)Ordered By: Art Bianchi on 05-15-2022 Calcium [Mass/Vol] 10.1 mg/dL 8.2-10.2 [facility] Serum or plasma chloride judy surement (moles/volume)Ordered By: Art Bianchi on 05-15-2022 Chloride [Moles/Vol] 94 mmol/L 95-114 [facility] Serum or plasma glucose tammy urement (mass/volume)Ordered By: Art Bianchi on 05-15-2022 Glucose [Mass/Vol] 102 mg/dL 70-100 [facility] Comment on above: ADA recommended refe rence range Random Glucose Reference Range is dependent on time and content of last meal. Glucose of more than 200 mg/dL in a nonstressed, ambulatory subject supports the diagnosis of Diabetes Mellitus. Serum or plasma potassium me asurement (moles/volume)Ordered By: Art Bianchi on 05-15-2022 Potassium [Moles/Vol] 3.1 mmol/L 3.5-5.1 [facility] Serum or plasma sodium measu rement (moles/volume)Ordered By: Art Bianchi on 05-15-2022 Sodium [Moles/Vol] 135 mmol/L 136-146 [facility] Serum or plasma total biliru bin measurement (mass/volume)Ordered By: Art Bianchi on 05-15-2022 Bilirubin [Mass/Vol] 1.2 mg/dL 0.3-1.2 [facility] Serum or plasma total carbon dioxide measurement (moles/volume)Ordered By: Art Bianchi on 05-15-2022 CO2 [Moles/Vol] 22.2 mmol/L 22.0-30.0 [facility] Serum or plasma urea nitroge n measurement (mass/volume)Ordered By: Art Bianchi on 05-15-2022 Urea nitrogen [Mass/Vol] 23 mg/dL 9-23 [facility] Albumin [Mass/volume] in Ser um or PlasmaOrdered By: Art Bianchi on 05-13-2022 Albumin [Mass/Vol] 4.3 g/dL 3.2-5.5 [facility] Automated erythrocytes count in urine sediment (number/area)Ordered By: Art Bianchi on 05-13-2022 RBC Auto (Urine sed) [#/Area] 1-2 [HPF] 0-4 [facility] Automated leukocytes count i n urine sediment (number/area)Ordered By: Art Bianchi on 05-13-2022 WBC Auto (Urine sed) [#/Area] 1-2 [HPF] 0-4 [facility] Basophils Auto (Bld) [#/Vol] Ordered By: Art Bianchi on 05-13-2022 Basophils (Bld) [#/Vol] 0.1 10*3/uL 0.0-0.1 [facility] Basophils/100 WBC Auto (Bld) Ordered By: Art Bianchi on 05-13-2022 Basophils/100 WBC (Bld) 1.0 % . [facility] Bilirubin Test strip Ql (U)O rdered By: Art Bianchi on 05-13-2022 Bilirubin Ql (U) Negative Negative [facility] Blood hemoglobin measurement (mass/volume)Ordered By: Art Bianchi on 05-13-2022 Hemoglobin (Bld) [Mass/Vol] 13.7 g/dL 12.0-16.0 [facility] Blood leukocytes automated c ount (number/volume)Ordered By: Art Bianchi on 05-13-2022 WBC (Bld) [#/Vol] 10.4 10*3/uL 4.5-13.5 [facility] Color Auto (U)Ordered By: Adrian Bianchi on 05-13-2022 Color (U) Yellow Yellow [facility] Creatinine and Glomerular fi ltration rate.predicted panel (S/P/Bld)Ordered By: Art Bianchi on 05-13-2022 Creatinine [Mass/Vol] 0.76 mg/dL 0.44-1.03 [facility] Eosinophils Auto (Bld) [#/Vo l]Ordered By: Art Bianchi on 05-13-2022 Eosinophils (Bld) [#/Vol] 0.5 10*3/uL 0.0-0.7 [facility] Eosinophils/100 WBC Auto (Bl d)Ordered By: Art Bianchi on 05-13-2022 Eosinophils/100 WBC (Bld) 4.6 % . [facility] Erythrocyte distribution wid th Auto (RBC) [Ratio]Ordered By: Art Bianchi on 05-13-2022 Erythrocyte distribution width (RBC) [Ratio] 13.6 % 11.9-15.3 [facility] Estimated glomerular filtrat ion rate (GFR) non- AmericanOrdered By: Art Bianchi on 05-13-2022 GFR/1.73 sq M.predicted among non-blacks MDRD (S/P/Bld) [Vol rate/Area] > 60 mL/Min [facility] Globulin Calc (S) [Mass/Vol] Ordered By: Art Bianchi on 05-13-2022 Globulin (S) [Mass/Vol] 2.7 g/dL [facility] HCG ( test) IA.rapi d Ql (U)Ordered By: Art Bianchi on 05-13-2022 HCG ( test) Ql (U) Negative [facility] Hematocrit Auto (Bld) [Volum e fraction]Ordered By: Art Bianchi on 05-13-2022 Hematocrit (Bld) [Volume fraction] 40.5 % 36.0-46.0 [facility] Ketones Auto test strip (U) [Mass/Vol]Ordered By: Art Bianchi on 05-13-2022 Ketones (U) [Mass/Vol] Trace Negative [facility] Laboratory - Hematology and Cell countsOrdered By: Art Bianchi on 05-13-2022 Nucleated RBC/100 WBC (Bld) [Ratio] 0.0 % 0-0.5 [facility] - UrinalysisOrder ed By: Art Bianchi on 05-13-2022 Hyaline casts LM Ql (Urine sed) 0-8 [LPF] 0-8 [facility] Lymphocytes Auto (Bld) [#/Vo l]Ordered By: Art Bianchi on 05-13-2022 Lymphocytes (Bld) [#/Vol] 1.4 10*3/uL 1.20-4.8 [facility] Lymphocytes/100 WBC Auto (Bl d)Ordered By: Art Bianchi on 05-13-2022 Lymphocytes/100 WBC (Bld) 13.1 % . [facility] MCH Auto (RBC) [Entitic mass ]Ordered By: Art Bianchi on 05-13-2022 MCH (RBC) [Entitic mass] 28.6 pg 25.0-35.0 [facility] MCHC Auto (RBC) [Mass/Vol]Or dered By: Art Bianchi on 05-13-2022 MCHC (RBC) [Mass/Vol] 33.7 g/dL 31.0-37.0 [facility] MCV Auto (RBC) [Entitic vol] Ordered By: Art Bianchi on 05-13-2022 MCV (RBC) [Entitic vol] 84.7 fL 78-102 [facility] Monocytes Auto (Bld) [#/Vol] Ordered By: Art Bianchi on 05-13-2022 Monocytes (Bld) [#/Vol] 0.4 10*3/uL 0.1-1.00 [facility] Monocytes/100 WBC Auto (Bld) Ordered By: Art Bianchi on 05-13-2022 Monocytes/100 WBC (Bld) 4.2 % . [facility] Neutrophils Auto (Bld) [#/Vo l]Ordered By: Art Bianchi on 05-13-2022 Neutrophils (Bld) [#/Vol] 8.0 10*3/uL 1.2-7.7 [facility] Neutrophils/100 WBC Auto (Bl d)Ordered By: Art Bianchi on 05-13-2022 Neutrophils/100 WBC (Bld) 77.1 % . [facility] Nitrite Test strip Ql (U)Ord ered By: Art Bianchi on 05-13-2022 Nitrite Ql (U) Negative Negative [facility] No Panel InformationOrdered By: Art Bianchi on 05-13-2022 Estimated GFR () > 60 mL/Min [facility] Comment on above: GFR estimated refere nce range: According to KDOQI guidelines, <60 ml/min/1.73m2 is sufficient to diagnose a patient with chronic kidney disease. Pharmacy Creatinine Clearance (Chem 112.80 [facility] Platelet mean volume Auto (B ld) [Entitic vol]Ordered By: Art Bianchi on 05-13-2022 Platelet mean volume (Bld) [Entitic vol] 8.6 fL 6.3-10.7 [facility] Platelets Auto (Bld) [#/Vol] Ordered By: Art Bianchi on 05-13-2022 Platelets (Bld) [#/Vol] 264 10*3/uL 150-450 [facility] Protein Auto test strip (U) [Mass/Vol]Ordered By: Art Bianchi on 05-13-2022 Protein (U) [Mass/Vol] 30 mg/dL Negative Fi [facility] Protein [Mass/volume] in Ser um or PlasmaOrdered By: Art Bianchi on 05-13-2022 Protein [Mass/Vol] 7.0 g/dL 6.1-7.9 [facility] RBC Auto (Bld) [#/Vol]Ordere d By: Art Bianchi on 06-16-2022 RBC (Bld) [#/Vol] 4.78 10*6/uL 4.10-5.10 [facility] Serum or plasma alanine florez otransferase measurement without P-5'-P (enzymatic activiOrdered By: Art Bianchi on 05-13-2022 ALT No additional P-5'-P [Catalytic activity/Vol] 19 U/L 10-60 [facility] Serum or plasma albumin/glob ulin mass ratioOrdered By: Art Bianchi on 05-13-2022 Albumin/Globulin [Mass ratio] 1.6 {ratio} [facility] Serum or plasma alkaline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 By: #### V TDOH ####[facility] [place] [address] Monocytes Auto #/vol (Bld) 0.58 10*3/uL Normal 0.10 - 1.00 [facility] Comment on above: Performed By: #### V TDOH ####[facility] [place] [address] Monocytes/100 WBC Auto (Bld) 8.4 % Normal 3.0 - 9.0 [facility] Comment on above: Performed By: #### V TDOH ####[facility] [place] [address] Neutrophils Auto #/vol (Bld) 3.65 10*3/uL Normal 1.20 - 7.70 [facility] Comment on above: Performed By: #### V TDOH ####[facility] [place] [address] Nucleated RBC/100 WBC Ratio (Bld) 0.0 /100 WBC Normal 0.0-0.0 [facility] Comment on above: Performed By: #### V TDOH ####[facility] [place] [address] Platelets Auto #/vol (Bld) 256 10*3/uL Normal 150 - 400 [facility] Comment on above: Performed By: #### V TDOH ####[facility] [place] [address] RBC Auto #/vol (Bld) 4.40 x10E12/L Normal 4.10 - 5.20 [facility] Comment on above: Performed By: #### V TDOH ####[facility] [place] [address] WBC Auto #/vol (Bld) 6.9 10*3/uL Normal 4.5 - 13.5 [facility] Comment on above: Performed By: #### V TDOH ####[facility] [place] [address] CELIAC DISEASE SEROLOGY PANE Tushar 08-10-2017 GLIADIN ABS, IGA 0 Normal 0 - 14 [facility] Comment on above: Result Comment: Fals e negative Deamidated Gliadin Peptide Antibody, IgA results can occur in patients already adhering to a gluten-free diet or patients with IgA deficiency. Tissue Transglutaminase Antibody, IgA is the preferred test for screening patients with suspected Celiac Disease. Performed By: #### T 4FRE ####[facility] [place] [address] GLIADIN ABS, IGG <1 Normal 0 - 14 [facility] Comment on above: Result Comment: Fals e negative Deamidated Gliadin Peptide Antibody, IgG results can occur in patients already adhering to a gluten-free diet. Tissue Transglutaminase Antibody, IgA is the preferred test for screening patients with suspected Celiac Disease. Performed By: #### T 4FRE ####[facility] [place] [address] TTG AB,IGA <1 Normal 0 - 14 [facility] Comment on above: Result Comment: Loni ac disease is unlikely. False negative Tissue Transglutaminase Antibody, IgA results can occur in approximately 10% of patients with celiac disease, patients already adhering to a gluten-free diet, or patients with IgA deficiency. Performed By: #### T 4FRE ####[facility] [place] [address] TTG AB,IGG <1 Normal 0 - 14 [facility] Comment on above: Result Comment: Fals e negative Tissue Transglutaminase Antibody, IgG results can occur in patients already adhering to a gluten-free diet. Tissue Transglutaminase Antibody, IgA is the preferred test for screening patients with suspected Celiac Disease. Performed By: #### T 4FRE ####[facility] [place] [address] COAGULATION SCREENon 017 aPTT Coag time (Bld) 28 s Normal 25 - 36 [facility] Comment on above: Result Comment: THE APTT IS NO LONGER USED FOR MONITORING UNFRACTIONATED HEPARIN THERAPY. FOR MONITORING HEPARIN THERAPY, USE THE HEPARIN ASSAY. Performed By: #### V TDOH ####[facility] [place] [address] INR Coag RelTime (PPP) 1.1 {INR} Normal 0.9 - 1.1 [facility] Comment on above: Performed By: #### V TDOH ####[facility] [place] [address] Prothrombin time (PT) Coag time (PPP) 12.1 s Normal 9.8 - 12.7 [facility] Comment on above: Performed By: #### V TDOH ####[facility] [place] [address] HEPATIC FUNCTION PANELon ALP enzyme act/vol 128 U/L Normal 52 - 239 [facility] Comment on above: Performed By: #### V TDOH ####[facility] [place] [address] ALT enzyme act/vol 39 U/L High 3 - 28 [facility] Comment on above: Result Comment: Christen ents treated with Sulfasalazine may generate falsely decreased results for ALT. Performed By: #### V TDOH ####[facility] [place] [address] AST enzyme act/vol 27 U/L High 9 - 24 [facility] Comment on above: Performed By: #### V TDOH ####[facility] [place] [address] Bilirubin mass conc 0.4 mg/dL Normal 0.0 - 0.9 [facility] Comment on above: Performed By: #### V TDOH ####[facility] [place] [address] Bilirubin.direct mass conc 0.1 mg/dL Normal 0.0 - 0.3 [facility] Comment on above: Performed By: #### V TDOH ####[facility] [place] [address] Protein mass conc 5.7 g/dL Low 6.2 - 7.7 [facility] Comment on above: Performed By: #### V TDOH ####[facility] [place] [address] LIPASEon 08-10-2017 Lipase enzyme act/vol 16 U/L Normal 9 - 82 [facility] Comment on above: Result Comment: Shanda puncture immediately after or during the administration of Metamizole may lead to falsely low results. Testing should be performed immediately prior to Metamizole dosing. Performed By: #### V TDOH ####[facility] [place] [address] RENAL FUNCTION PANELon 08-10 Albumin mass conc 3.8 g/dL Normal 3.4 - 5.0 [facility] Comment on above: Performed By: #### T 4FRE ####[facility] [place] [address] Performed By: #### V TDOH ####[facility] [place] [address] Anion gap 3 molar conc 13 mmol/L Normal 10 - 30 [facility] Comment on above: Performed By: #### T 4FRE ####[facility] [place] [address] Calcium mass conc 9.2 mg/dL Normal 8.5 - 10.7 [facility] Comment on above: Performed By: #### T 4FRE ####[facility] [place] [address] Chloride molar conc 106 mmol/L Normal 98 - 107 [facility] Comment on above: Performed By: #### T 4FRE ####[facility] [place] [address] Creatinine mass conc 0.56 mg/dL Normal 0.50 - 1.00 [facility] Comment on above: Performed By: #### T 4FRE ####[facility] [place] [address] Glucose mass conc 106 mg/dL High 74 - 99 [facility] Comment on above: Performed By: #### T 4FRE ####[facility] [place] [address] HCO3 molar conc (Bld) 26 mmol/L Normal 18 - 27 [facility] Comment on above: Performed By: #### T 4FRE ####[facility] [place] [address] Phosphate mass conc 4.3 mg/dL Normal 3.0 - 5.4 [facility] Comment on above: Result Comment: The performance characteristics of phosphorus testing in heparinized plasma have been validated by the individual laboratory site where testing is performed. Testing on heparinized plasma is not approved by the FDA; however, such approval is not necessary. Performed By: #### T 4FRE ####[facility] [place] [address] Potassium molar conc 3.9 mmol/L Normal 3.5 - 5.3 [facility] Comment on above: Performed By: #### T 4FRE ####[facility] [place] [address] Sodium molar conc 141 mmol/L Normal 136 - 145 [facility] Comment on above: Performed By: #### T 4FRE ####[facility] [place] [address] Urea nitrogen mass conc 11 mg/dL Normal 6 - 23 [facility] Comment on above: Performed By: #### T 4FRE ####[facility] [place] [address] AMYLASEon 08-09-2017 Amylase enzyme act/vol 22 U/L Normal 18 - 76 [facility] Comment on above: Performed By: #### A MY ####[facility] [place] [address] C-REACTIVE PROTEINon 017 CRP mass conc 0.36 mg/dL Normal [facility] Comment on above: Result Comment: REF VALUE< 1.00 Performed By: #### C RP ####[facility] [place] [address] CBC AND DIFFERENTIALon 08-09 % AUTOMATED IMMATURE GRAN 0.3 % Normal 0.0 - 1.0 [facility] Comment on above: Result Comment: Perc ent differential counts (%) should be interpreted in the context of the absolute cell counts (cells/L). Performed By: #### C BCDF ####[facility] [place] [address] % NEUTROPHIL 60.6 % Normal 33.0 - 69.0 [facility] Comment on above: Performed By: #### C BCDF ####[facility] [place] [address] Basophils/100 WBC Auto (Bld) 0.04 x10E9/L Normal 0.00 - 0.10 [facility] Comment on above: Performed By: #### C BCDF ####[facility] [place] [address] Basophils/100 WBC Auto (Bld) 0.5 % Normal 0.0 - 1.0 [facility] Comment on above: Performed By: #### C BCDF ####[facility] [place] [address] Eosinophils Auto #/vol (Bld) 0.28 10*3/uL Normal 0.00 - 0.70 [facility] Comment on above: Performed By: #### C BCDF ####[facility] [place] [address] Eosinophils/100 WBC Auto (Bld) 3.6 % Normal 0.0 - 5.0 [facility] Comment on above: Performed By: #### C BCDF ####[facility] [place] [address] Erythrocyte distribution width Auto Ratio (RBC) 14.4 % Normal 11.5 - 14.5 [facility] Comment on above: Performed By: #### C BCDF ####[facility] [place] [address] Hematocrit Auto Volume Fraction (Bld) 37.7 % Normal 36.0 - 46.0 [facility] Comment on above: Performed By: #### C BCDF ####[facility] [place] [address] Hemoglobin mass conc (Bld) 11.5 g/dL Low 12.0 - 16.0 [facility] Comment on above: Performed By: #### C BCDF ####[facility] [place] [address] Lymphocytes Auto #/vol (Bld) 2.20 10*3/uL Normal 1.80 - 4.80 [facility] Comment on above: Performed By: #### C BCDF ####[facility] [place] [address] Lymphocytes/100 WBC Auto (Bld) 28.2 % Normal 28.0 - 48.0 [facility] Comment on above: Performed By: #### C BCDF ####[facility] [place] [address] MCHC Auto mass conc (RBC) 30.5 g/dL Low 31.0 - 37.0 [facility] Comment on above: Performed By: #### C BCDF ####[facility] [place] [address] MCV Auto Entitic volume (RBC) 82 fL Normal 78 - 102 [facility] Comment on above: Performed By: #### C BCDF ####[facility] [place] [address] Monocytes Auto #/vol (Bld) 0.53 10*3/uL Normal 0.10 - 1.00 [facility] Comment on above: Performed By: #### C BCDF ####[facility] [place] [address] Monocytes/100 WBC Auto (Bld) 6.8 % Normal 3.0 - 9.0 [facility] Comment on above: Performed By: #### C BCDF ####[facility] [place] [address] Neutrophils Auto #/vol (Bld) 4.73 10*3/uL Normal 1.20 - 7.70 [facility] Comment on above: Performed By: #### C BCDF ####[facility] [place] [address] Nucleated RBC/100 WBC Ratio (Bld) 0.0 /100 WBC Normal 0.0-0.0 [facility] Comment on above: Performed By: #### C BCDF ####[facility] [place] [address] Platelets Auto #/vol (Bld) 290 10*3/uL Normal 150 - 400 [facility] Comment on above: Performed By: #### C BCDF ####[facility] [place] [address] RBC Auto #/vol (Bld) 4.62 x10E12/L Normal 4.10 - 5.20 [facility] Comment on above: Performed By: #### C BCDF ####[facility] [place] [address] WBC Auto #/vol (Bld) 7.8 10*3/uL Normal 4.5 - 13.5 [facility] Comment on above: Performed By: #### C BCDF ####[facility] [place] [address] COAGULATION SCREENon 017 aPTT Coag time (Bld) 29 s Normal 25 - 36 [facility] Comment on above: Result Comment: THE APTT IS NO LONGER USED FOR MONITORING UNFRACTIONATED HEPARIN THERAPY. FOR MONITORING HEPARIN THERAPY, USE THE HEPARIN ASSAY. Performed By: #### V TDOH ####[facility] [place] [address] INR Coag RelTime (PPP) 1.2 {INR} High 0.9 - 1.1 [facility] Comment on above: Performed By: #### V TDOH ####[facility] [place] [address] Prothrombin time (PT) Coag time (PPP) 12.9 s High 9.8 - 12.7 [facility] Comment on above: Performed By: #### V TDOH ####[facility] [place] [address] ESR-WESTERGRENon 08-09-2017 ESR-WESTERGREN 8 mm/h Normal 0 - 13 [facility] Comment on above: Performed By: #### V TDOH ####[facility] [place] [address] GGTon 08-09-2017 GGT 20 U/L Normal 5 - 20 [facility] Comment on above: Performed By: #### G GT ####[facility] [place] [address] HEMOGLOBIN A1Con 08-09-2017 Hemoglobin A1c/Hemoglobin.total mass fraction (Bld) 5.6 % Normal [facility] Comment on above: Result Comment: Diag nosis of Diabetes-Adults Non-Diabetic: < or = 5.6% Increased risk for developing diabetes: 5.7-6.4% Diagnostic of diabetes: > or = 6.5%. Monitoring of Diabetes Age (y) Therapeutic Goal (%) Adults: >18 <7.0 Pediatrics: 13-18 <7.5 7-12 <8.0 0- 6 7.5-8.5 [place] [employer]. Diabetes Care 33(S1), Nov 2009. Performed By: #### V TDOH ####[facility] [place] [address] HEPATIC FUNCTION PANELon ALP enzyme act/vol 133 U/L Normal 52 - 239 [facility] Comment on above: Performed By: #### H EPFP ####[facility] [place] [address] ALT enzyme act/vol 41 U/L High 3 - 28 [facility] Comment on above: Result Comment: Christen ents treated with Sulfasalazine may generate falsely decreased results for ALT. Performed By: #### H EPFP ####[facility] [place] [address] AST enzyme act/vol 25 U/L High 9 - 24 [facility] Comment on above: Performed By: #### H EPFP ####[facility] [place] [address] Bilirubin mass conc 0.3 mg/dL Normal 0.0 - 0.9 [facility] Comment on above: Performed By: #### H EPFP ####[facility] [place] [address] Bilirubin.direct mass conc 0.1 mg/dL Normal 0.0 - 0.3 [facility] Comment on above: Performed By: #### H EPFP ####[facility] [place] [address] Protein mass conc 6.7 g/dL Normal 6.2 - 7.7 [facility] Comment on above: Performed By: #### H EPFP ####[facility] [place] [address] IRON + TIBCon 08-09-2017 % SATURATION 13 % Low 25 - 45 [facility] Comment on above: Performed By: #### I RONT ####[facility] [place] [address] Iron mass conc 53 ug/dL Normal 23 - 138 [facility] Comment on above: Performed By: #### I RONT ####[facility] [place] [address] TIBC 407 ug/dL Normal 240 - 445 [facility] Comment on above: Performed By: #### I RONT ####[facility] [place] [address] LIPASEon 08-09-2017 Lipase enzyme act/vol 17 U/L Normal 9 - 82 [facility] Comment on above: Result Comment: Shanda puncture immediately after or during the administration of Metamizole may lead to falsely low results. Testing should be performed immediately prior to Metamizole dosing. Performed By: #### L IPAS ####[facility] [place] [address] RENAL FUNCTION PANELon 08-09 Albumin mass conc 4.3 g/dL Normal 3.4 - 5.0 [facility] Comment on above: Performed By: #### V TDOH ####[facility] [place] [address] Performed By: #### H EPFP ####[facility] [place] [address] Anion gap 3 molar conc 13 mmol/L Normal 10 - 30 [facility] Comment on above: Performed By: #### V TDOH ####[facility] [place] [address] Calcium mass conc 9.5 mg/dL Normal 8.5 - 10.7 [facility] Comment on above: Performed By: #### V TDOH ####[facility] [place] [address] Chloride molar conc 105 mmol/L Normal 98 - 107 [facility] Comment on above: Performed By: #### V TDOH ####[facility] [place] [address] Creatinine mass conc 0.50 mg/dL Normal 0.50 - 1.00 [facility] Comment on above: Performed By: #### V TDOH ####[facility] [place] [address] Glucose mass conc 83 mg/dL Normal 74 - 99 [facility] Comment on above: Performed By: #### V TDOH ####[facility] [place] [address] HCO3 molar conc (Bld) 27 mmol/L Normal 18 - 27 [facility] Comment on above: Performed By: #### V TDOH ####[facility] [place] [address] Phosphate mass conc 4.1 mg/dL Normal 3.0 - 5.4 [facility] Comment on above: Result Comment: The performance characteristics of phosphorus testing in heparinized plasma have been validated by the individual laboratory site where testing is performed. Testing on heparinized plasma is not approved by the FDA; however, such approval is not necessary. Performed By: #### V TDOH ####[facility] [place] [address] Potassium molar conc 4.1 mmol/L Normal 3.5 - 5.3 [facility] Comment on above: Performed By: #### V TDOH ####[id number] [place] [address] Sodium molar conc 141 mmol/L Normal 136 - 145 [facility] Comment on above: Performed By: #### V TDOH ####[id number] [place] [address] Urea nitrogen mass conc 11 mg/dL Normal 6 - 23 [facility] Comment on above: Performed By: #### V TDOH ####[facility] [place] [address] THYROXINE,FREEon 08-09-2017 THYROXINE,FREE 1.08 ng/dL Normal 0.78 - 1.48 [facility] Comment on above: Result Comment: Thyr oxine Free testing is performed using different testing methodology at [facility] than at other [facility]. Direct result comparisons should only be made within the same method.. Patients receiving more than 5 mg/day of biotin may have interference in test results. A sample should be taken no sooner than eight hours after previous dose. Contact [phone] for additional information. Performed By: #### T 4FRE ####[facility] [place] [address] TSHon 08-09-2017 Thyrotropin Qn 1.71 m[IU]/L Normal 0.44 - 3.98 [facility] Comment on above: Result Comment: TSH testing is performed using different testing methodology at [facility] than at other [facility]. Direct result comparisons should only be made within the same method.. Patients receiving more than 5 mg/day of biotin may have interference in test results. A sample should be taken no sooner than eight hours after previous dose. Contact [phone] for additional information. Performed By: #### T SH2 ####[facility] [place] [address] VITAMIN D, 25-HYDROXYon 07-29 VITAMIN D, 25-HYDROXY 28 ng/mL Abnormal [facility] Comment on above: Result Comment: .DEF ICIENCY: < 20 NG/MLINSUFFICIENCY: 20-29 NG/MLOPTIMUM LEVEL: 30-80 NG/MLPOSSIBLE TOXICITY: > 80 NG/MLTHIS ASSAY ACCURATELY QUANTIFIES THE SUM OFVITAMIN D3, 25-HYDROXY AND VIT D2,25-HYDROXY. Performed By: #### V TDOH ####[facility] [place] [address] Vital Signs Date Time Vital Sign Value Performing Clinician Facility 08-03-2024 23:10-0400 Diastolic blood pressure 68 mm[Hg] Services [employer] Work Phone: [facility] 08-03-2024 23:10-0400 Heart rate 95 /min Services [employer] Work Phone: [facility] 08-03-2024 23:10-0400 Respiratory rate 18 /min Services [employer] Phone: [facility] 08-03-2024 23:10-0400 SaO2% (BldA) [Mass fraction] 99 % Services [employer] Work Phone: [facility] 08-03-2024 23:10-0400 Systolic blood pressure 115 mm[Hg] Services [employer] Phone: [facility] 08-03-2024 20:35-0400 Body height 157.48 cm Services [employer] Phone: [facility] 08-03-2024 20:35-0400 Body temperature 99.1 [degF] Services [employer] Phone: [facility] 08-03-2024 20:35-0400 Body weight 90.71 kg Services [facility] Work Phone: [facility] 07-30-2024 22:55-0400 Diastolic blood pressure 72 mm[Hg] Cresencio Abel [facility] 07-30-2024 22:55-0400 Heart rate 50 /min Cresencio Colten [facility] 07-30-2024 22:55-0400 Mean blood pressure 83 mm[Hg] Cresencio Colten [facility] 07-30-2024 22:55-0400 Respiratory rate 16 /min Cresencio Colten [facility] 07-30-2024 22:55-0400 SaO2% (BldA) [Mass fraction] 98 % Cresencio Colten [facility] 07-30-2024 22:55-0400 Systolic blood pressure 104 mm[Hg] Cresencio Colten [facility] 07-30-2024 19:28-0400 Body temperature 98.06 [degF] Cresencio Colten [facility] 07-30-2024 19:28-0400 Diastolic blood pressure 76 mm[Hg] Cresencio Colten [facility] 07-30-2024 19:28-0400 Heart rate 55 /min Cresencio Colten [facility] 07-30-2024 19:28-0400 Respiratory rate 16 /min Cresencio Colten [facility] 07-30-2024 19:28-0400 SaO2% (BldA) [Mass fraction] 97 % Cresencio Colten [facility] 07-30-2024 19:28-0400 Systolic blood pressure 118 mm[Hg] Cresencio Colten [facility] 03-19-2024 00:10-0400 Diastolic blood pressure 90 mm[Hg] [facility] Work Phone: [facility] 03-19-2024 00:10-0400 Heart rate 110 /min [facility] Work Phone: [facility] 03-19-2024 00:10-0400 Respiratory rate 18 /min Services [employer] Work Phone: [facility] 03-19-2024 00:10-0400 SaO2% (BldA) [Mass fraction] 100 % [facility] Work Phone: [facility] 03-19-2024 00:10-0400 Systolic blood pressure 144 mm[Hg] Services [employer] Work Phone: [facility] 03-18-2024 22:03-0400 Body height 160.02 cm Services [employer] Work Phone: [facility] 03-18-2024 22:03-0400 Body temperature 98.3 [degF] Services [employer] Work Phone: [facility] 03-18-2024 22:03-0400 Body weight 92.2 kg Services [employer] Work Phone: [facility] 03-15-2024 13:43-0400 Diastolic blood pressure 89 mm[Hg] [facility] 03-15-2024 13:43-0400 Heart rate 51 /min [facility] 03-15-2024 13:43-0400 Mean blood pressure 107 mm[Hg] [facility] 03-15-2024 13:43-0400 Respiratory rate 16 /min [facility] 03-15-2024 13:43-0400 SaO2% (BldA) [Mass fraction] 100 % [facility] 03-15-2024 13:43-0400 Systolic blood pressure 144 mm[Hg] [facility] 03-15-2024 12:01-0400 Diastolic blood pressure 87 mm[Hg] [facility] 03-15-2024 12:01-0400 Heart rate 52 /min [facility] 03-15-2024 12:01-0400 Mean blood pressure 107 mm[Hg] [facility] 03-15-2024 12:01-0400 SaO2% (BldA) [Mass fraction] 100 % [facility] 03-15-2024 12:01-0400 Systolic blood pressure 148 mm[Hg] [facility] 03-15-2024 10:35-0400 Body temperature 97.52 [degF] [facility] 03-15-2024 10:35-0400 Diastolic blood pressure 86 mm[Hg] [facility] 03-15-2024 10:35-0400 Heart rate 60 /min [facility] 03-15-2024 10:35-0400 Respiratory rate 18 /min [facility] 03-15-2024 10:35-0400 SaO2% (BldA) [Mass fraction] 98 % [facility] 03-15-2024 10:35-0400 Systolic blood pressure 143 mm[Hg] [facility] 03-13-2024 22:00-0400 Diastolic blood pressure 105 mm[Hg] Jacinto Roman [facility] 03-13-2024 22:00-0400 Heart rate 53 /min Jacinto Roman [facility] 03-13-2024 22:00-0400 Mean blood pressure 117 mm[Hg] Jacinto Roman [facility] 03-13-2024 22:00-0400 SaO2% (BldA) [Mass fraction] 100 % Jacinto Roman [facility] 03-13-2024 22:00-0400 Systolic blood pressure 140 mm[Hg] Jacinto Jessie [facility] 03-13-2024 21:00-0400 Diastolic blood pressure 106 mm[Hg] Jacinto Jessie [facility] 03-13-2024 21:00-0400 Heart rate 93 /min Jacinto Jessie [facility] 03-13-2024 21:00-0400 Mean blood pressure 119 mm[Hg] Jacinto Jessie [facility] 03-13-2024 21:00-0400 Respiratory rate 21 /min Jacinto Jessie [facility] 03-13-2024 21:00-0400 SaO2% (BldA) [Mass fraction] 98 % Jacinto Jessie [facility] 03-13-2024 21:00-0400 Systolic blood pressure 144 mm[Hg] Jacinto Jessie [facility] 03-13-2024 20:00-0400 Diastolic blood pressure 103 mm[Hg] Jacinto Jessie [facility] 03-13-2024 20:00-0400 Heart rate 50 /min Jacinto Jessie [facility] 03-13-2024 20:00-0400 Mean blood pressure 120 mm[Hg] Jacinto Jessie [facility] 03-13-2024 20:00-0400 Systolic blood pressure 153 mm[Hg] Jacinto Jessie [facility] 03-13-2024 19:38-0400 Respiratory rate 14 /min Jacinto Jessie [facility] 03-13-2024 18:36-0400 Respiratory rate 18 /min Jacinto Jessie [facility] 03-13-2024 17:51-0400 Body temperature 98.24 [degF] Jacinto Roman [facility] 03-13-2024 17:36-0400 Body temperature 98.24 [degF] Jacinto Roman [facility] 03-13-2024 17:36-0400 Heart rate 61 /min Jacinto Roman [facility] 03-13-2024 17:36-0400 Respiratory rate 18 /min Jacinto Roman [facility] 07-31-2023 18:09-0400 Body height 157.48 cm [facility] Work Phone: [facility] 07-31-2023 18:09-0400 Body temperature 98.6 [degF] [facility] Work Phone: [facility] 07-31-2023 18:09-0400 Body weight 84 kg [facility] Work Phone: [facility] 07-31-2023 18:09-0400 Diastolic blood pressure 106 mm[Hg] [facility] Work Phone: [facility] 07-31-2023 18:09-0400 Heart rate 87 /min [facility] Work Phone: [facility] 07-31-2023 18:09-0400 Respiratory rate 18 /min [facility] Work Phone: [facility] 07-31-2023 18:09-0400 SaO2% (BldA) [Mass fraction] 98 % [facility] Work Phone: [facility] 07-31-2023 18:09-0400 Systolic blood pressure 150 mm[Hg] [facility] Work Phone: [facility] 05-25-2023 13:11-0400 Diastolic blood pressure 96 mm[Hg] [facility] Work Phone: [facility] 05-25-2023 13:11-0400 Heart rate 60 /min Services [employer] Work Phone: [facility] 05-25-2023 13:11-0400 Respiratory rate 16 /min Services [facility] [employer] Work Phone: [facility] 05-25-2023 13:11-0400 SaO2% (BldA) [Mass fraction] 97 % Services [employer] Work Phone: [facility] 05-25-2023 13:11-0400 Systolic blood pressure 160 mm[Hg] Services [facility] [employer] Work Phone: [facility] 05-25-2023 11:56-0400 Inhaled oxygen flow rate 6 L/min Services [facility] [employer] Work Phone: [facility] 05-25-2023 11:54-0400 Body temperature 97.2 [degF] Services [employer] Work Phone: [facility] 05-25-2023 09:39-0400 Body height 160.02 cm Services [employer] Work Phone: [facility] 05-25-2023 09:39-0400 Body mass index (BMI) [Percentile] Per age and sex 96.6 % Services [employer] Phone: [facility] 05-25-2023 09:39-0400 Body mass index (BMI) [Ratio] 33.6 kg/m2 Services [employer] Work Phone: [facility] 05-25-2023 09:39-0400 Body weight 86.18 kg Services [employer] Work Phone: [facility] 05-23-2023 08:00-0400 Body height 157.48 cm Colten Miller Other [employer] Other 05-23-2023 08:00-0400 Body mass index (BMI) [Ratio] 34.75 kg/m2 Colten Miller Other [employer] Other 05-23-2023 08:00-0400 Body weight 86.18 kg Colten Miller Other [facility] [employer] Other 01-07-2023 14:08-0500 Body height 157.48 cm [facility] Work Phone: [facility] 01-07-2023 12:34-0500 Body temperature 98.1 [degF] [facility] Work Phone: [facility] 01-07-2023 12:34-0500 Diastolic blood pressure 86 mm[Hg] Services [facility] Work Phone: [facility] 01-07-2023 12:34-0500 Heart rate 75 /min Services [facility] [employer] Work Phone: [facility] 01-07-2023 12:34-0500 SaO2% (BldA) [Mass fraction] 100 % Services [facility] Work Phone: [facility] 01-07-2023 12:34-0500 Systolic blood pressure 147 mm[Hg] Services [facility] Work Phone: [facility] 01-07-2023 11:57-0500 Respiratory rate 18 /min Services [facility] [employer] Work Phone: [facility] 01-07-2023 06:00-0500 Body weight 78.2 kg Services [facility] [employer] [facility] Work Phone: [facility] 01-06-2023 18:29-0500 Diastolic blood pressure 82 mm[Hg] Services [facility] Work Phone: [facility] 01-06-2023 18:29-0500 Heart rate 64 /min Services [facility] Work Phone: [facility] 01-06-2023 18:29-0500 Respiratory rate 16 /min Services [facility] [employer] Work Phone: [facility] 01-06-2023 18:29-0500 SaO2% (BldA) [Mass fraction] 98 % Services [facility] Work Phone: [facility] 01-06-2023 18:29-0500 Systolic blood pressure 139 mm[Hg] Services [facility] Work Phone: [facility] 01-06-2023 11:12-0500 Body height 157.48 cm Services [facility] Work Phone: [facility] 01-06-2023 11:12-0500 Body temperature 98 [degF] Services [facility] Work Phone: [facility] 01-06-2023 11:12-0500 Body weight 77.11 kg Services [facility] Work Phone: [facility] 01-02-2023 04:00-0500 Heart rate 62 /min Services [facility] Work Phone: [facility] 01-02-2023 04:00-0500 Respiratory rate 18 /min Services [facility] Work Phone: [facility] 01-02-2023 04:00-0500 SaO2% (BldA) [Mass fraction] 100 % Services [facility] Work Phone: [facility] 01-02-2023 02:37-0500 Diastolic blood pressure 85 mm[Hg] Services [facility] Work Phone: [facility] 01-02-2023 02:37-0500 Systolic blood pressure 155 mm[Hg] Services [facility] Work Phone: [facility] 01-02-2023 01:14-0500 Body height 157.48 cm Services [facility] Work Phone: [facility] 01-02-2023 01:14-0500 Body temperature 98 [degF] Services [facility] Work Phone: [facility] 01-02-2023 01:14-0500 Body weight 77.11 kg Services [facility] Work Phone: [facility] 12-31-2022 12:11-0500 Heart rate 70 /min Services [facility] Work Phone: [facility] 12-31-2022 12:08-0500 Body height 157.48 cm Services [facility] Work Phone: [facility] 12-31-2022 12:08-0500 Body temperature 97.7 [degF] Services [facility] Work Phone: [facility] 12-31-2022 12:08-0500 Body weight 79 kg Services [facility] [employer] [facility] Work Phone: [facility] 12-31-2022 12:08-0500 Diastolic blood pressure 87 mm[Hg] Services [facility] Work Phone: [facility] 12-31-2022 12:08-0500 Respiratory rate 18 /min Services [facility] Work Phone: [facility] 12-31-2022 12:08-0500 SaO2% (BldA) [Mass fraction] 99 % Services [facility] [employer] [facility] Work Phone: [facility] 12-31-2022 12:08-0500 Systolic blood pressure 134 mm[Hg] Services [facility] Work Phone: [facility] 11-09-2022 15:15-0500 Body height 157.48 cm Services [facility] Work Phone: [facility] 11-09-2022 15:15-0500 Body temperature 98.4 [degF] Services [facility] Work Phone: [facility] 11-09-2022 15:15-0500 Body weight 81.64 kg Services [facility] Work Phone: [facility] 11-09-2022 15:15-0500 Diastolic blood pressure 90 mm[Hg] Services [facility] Work Phone: [facility] 11-09-2022 15:15-0500 Heart rate 95 /min Services [facility] Work Phone: [facility] 11-09-2022 15:15-0500 Respiratory rate 16 /min [facility] Work Phone: [facility] 11-09-2022 15:15-0500 SaO2% (BldA) [Mass fraction] 100 % [facility] Work Phone: [facility] 11-09-2022 15:15-0500 Systolic blood pressure 140 mm[Hg] [facility] Work Phone: [facility] 11-07-2022 13:40-0500 Diastolic blood pressure 85 mm[Hg] [facility] Work Phone: [facility] 11-07-2022 13:40-0500 Heart rate 68 /min Services [facility] Work Phone: [facility] 11-07-2022 13:40-0500 Respiratory rate 16 /min Services [facility] Work Phone: [facility] 11-07-2022 13:40-0500 SaO2% (BldA) [Mass fraction] 100 % Services [facility] Work Phone: [facility] 11-07-2022 13:40-0500 Systolic blood pressure 119 mm[Hg] Services [facility] Work Phone: [facility] 11-07-2022 11:05-0500 Body temperature 98.2 [degF] [facility] Work Phone: [facility] 11-07-2022 11:04-0500 Body height 158.75 cm [facility] Work Phone: [facility] 11-07-2022 11:04-0500 Body weight 77 kg [facility] Work Phone: [facility] 11-02-2022 09:53-0500 Diastolic blood pressure 89 mm[Hg] Services [facility] Work Phone: [facility] 11-02-2022 09:53-0500 Heart rate 50 /min [facility] Work Phone: [facility] 11-02-2022 09:53-0500 Respiratory rate 18 /min [facility] Work Phone: [facility] 11-02-2022 09:53-0500 SaO2% (BldA) [Mass fraction] 98 % [facility] Work Phone: [facility] 11-02-2022 09:53-0500 Systolic blood pressure 156 mm[Hg] [facility] Work Phone: [facility] 11-02-2022 03:00-0500 Body height 157.48 cm Services [facility] Work Phone: [facility] 11-02-2022 03:00-0500 Body temperature 98.4 [degF] Services [facility] Work Phone: [facility] 11-02-2022 03:00-0500 Body weight 78 kg Services [facility] Work Phone: [facility] 10-31-2022 10:05-0500 Diastolic blood pressure 85 mm[Hg] Services [facility] Work Phone: [facility] 10-31-2022 10:05-0500 Heart rate 59 /min Services [facility] Work Phone: [facility] 10-31-2022 10:05-0500 Respiratory rate 18 /min Services [facility] Work Phone: [facility] 10-31-2022 10:05-0500 SaO2% (BldA) [Mass fraction] 98 % Services [facility] Work Phone: [facility] 10-31-2022 10:05-0500 Systolic blood pressure 137 mm[Hg] Services [facility] Work Phone: [facility] 10-31-2022 08:50-0500 Body height 157.48 cm Services [facility] [employer] [facility] Work Phone: [facility] 10-31-2022 08:50-0500 Body temperature 98.2 [degF] [facility] Work Phone: [facility] 10-31-2022 08:50-0500 Body weight 83.91 kg [facility] Work Phone: [facility] 10-29-2022 12:01-0500 Body height 157.48 cm Services [facility] Work Phone: [facility] 10-29-2022 12:01-0500 Body temperature 97.8 [degF] [facility] Work Phone: [facility] 10-29-2022 12:01-0500 Body weight 81 kg Services [facility] Work Phone: [facility] 10-29-2022 12:01-0500 Diastolic blood pressure 84 mm[Hg] Services [facility] Work Phone: [facility] 10-29-2022 12:01-0500 Heart rate 60 /min Services [facility] Work Phone: [facility] 10-29-2022 12:01-0500 Respiratory rate 18 /min Services [facility] Work Phone: [facility] 10-29-2022 12:01-0500 SaO2% (BldA) [Mass fraction] 99 % Services [facility] Work Phone: [facility] 10-29-2022 12:01-0500 Systolic blood pressure 109 mm[Hg] Services [facility] Work Phone: [facility] 08-22-2022 12:00-0400 Body temperature 98 [degF] [facility] Work Phone: [facility] 08-22-2022 12:00-0400 Diastolic blood pressure 78 mm[Hg] [facility] Work Phone: [facility] 08-22-2022 12:00-0400 Heart rate 80 /min [facility] Work Phone: [facility] 08-22-2022 12:00-0400 Respiratory rate 18 /min [facility] Work Phone: [facility] 08-22-2022 12:00-0400 SaO2% (BldA) [Mass fraction] 95 % [facility] Work Phone: [facility] 08-22-2022 12:00-0400 Systolic blood pressure 121 mm[Hg] [facility] Work Phone: [facility] 08-22-2022 05:50-0400 Body weight 77.5 kg [facility] Work Phone: [facility] 08-21-2022 11:27-0400 Body height 157.48 cm [facility] Work Phone: [facility] 08-20-2022 16:34-0400 Diastolic blood pressure 90 mm[Hg] [facility] Work Phone: [facility] 08-20-2022 16:34-0400 Heart rate 68 /min [facility] Work Phone: [facility] 08-20-2022 16:34-0400 Respiratory rate 20 /min [facility] Work Phone: [facility] 08-20-2022 16:34-0400 SaO2% (BldA) [Mass fraction] 96 % [facility] Work Phone: [facility] 08-20-2022 16:34-0400 Systolic blood pressure 142 mm[Hg] [facility] Work Phone: [facility] 08-20-2022 11:58-0400 Body height 157.48 cm [facility] Work Phone: [facility] 08-20-2022 11:58-0400 Body temperature 97.9 [degF] [facility] Work Phone: [facility] 08-20-2022 11:58-0400 Body weight 79.37 kg [facility] Work Phone: [facility] 08-20-2022 01:00-0400 Body temperature 97.9 [degF] [facility] Work Phone: [facility] 08-20-2022 01:00-0400 Diastolic blood pressure 72 mm[Hg] [facility] Work Phone: [facility] 08-20-2022 01:00-0400 Heart rate 53 /min [facility] Work Phone: [facility] 08-20-2022 01:00-0400 Respiratory rate 16 /min [facility] Work Phone: [facility] 08-20-2022 01:00-0400 SaO2% (BldA) [Mass fraction] 97 % [facility] Work Phone: [facility] 08-20-2022 01:00-0400 Systolic blood pressure 131 mm[Hg] [facility] Work Phone: [facility] 08-19-2022 18:57-0400 Body height 157.48 cm [facility] Work Phone: [facility] 08-19-2022 18:57-0400 Body weight 79.37 kg [facility] Work Phone: [facility] 08-19-2022 14:00-0400 Diastolic blood pressure 79 mm[Hg] [facility] Work Phone: [facility] 08-19-2022 14:00-0400 Heart rate 67 /min [facility] Work Phone: [facility] 08-19-2022 14:00-0400 Respiratory rate 20 /min [facility] Work Phone: [facility] 08-19-2022 14:00-0400 SaO2% (BldA) [Mass fraction] 99 % [facility] Work Phone: [facility] 08-19-2022 14:00-0400 Systolic blood pressure 139 mm[Hg] [facility] Work Phone: [facility] 08-19-2022 00:40-0400 Body height 157.48 cm [facility] Work Phone: [facility] 08-19-2022 00:40-0400 Body temperature 98.8 [degF] [facility] Work Phone: [facility] 08-19-2022 00:40-0400 Body weight 77.11 kg [facility] Work Phone: [facility] 08-18-2022 15:28-0400 Body temperature 97.8 [degF] [facility] Work Phone: [facility] 08-18-2022 15:28-0400 Diastolic blood pressure 90 mm[Hg] [facility] Work Phone: [facility] 08-18-2022 15:28-0400 Heart rate 54 /min [facility] Work Phone: [facility] 08-18-2022 15:28-0400 Respiratory rate 20 /min [facility] Work Phone: [facility] 08-18-2022 15:28-0400 SaO2% (BldA) [Mass fraction] 100 % [facility] Work Phone: [facility] 08-18-2022 15:28-0400 Systolic blood pressure 135 mm[Hg] [facility] Work Phone: [facility] 08-18-2022 12:26-0400 Body height 157.48 cm [facility] Work Phone: [facility] 08-18-2022 12:26-0400 Body weight 77.11 kg [facility] Work Phone: [facility] 06-09-2022 10:25-0400 Diastolic blood pressure 51 mm[Hg] [facility] Work Phone: [facility] 06-09-2022 10:25-0400 Heart rate 83 /min [facility] Work Phone: [facility] 06-09-2022 10:25-0400 Respiratory rate 20 /min [facility] Work Phone: [facility] 06-09-2022 10:25-0400 SaO2% (BldA) [Mass fraction] 98 % [facility] Work Phone: [facility] 06-09-2022 10:25-0400 Systolic blood pressure 92 mm[Hg] [facility] Work Phone: [facility] 06-09-2022 08:46-0400 Body height 157.48 cm [facility] Work Phone: [facility] 06-09-2022 08:46-0400 Body mass index (BMI) [Percentile] Per age and sex 96.2 % [facility] Work Phone: [facility] 06-09-2022 08:46-0400 Body mass index (BMI) [Ratio] 32 kg/m2 [facility] Work Phone: [facility] 06-09-2022 08:46-0400 Body temperature 97.4 [degF] [facility] Work Phone: [facility] 06-09-2022 08:46-0400 Body weight 79.37 kg [facility] Work Phone: [facility] 05-16-2022 13:52-0400 Diastolic blood pressure 96 mm[Hg] [facility] Work Phone: [facility] 05-16-2022 13:52-0400 Heart rate 66 /min [facility] Work Phone: [facility] 05-16-2022 13:52-0400 Respiratory rate 18 /min [facility] Work Phone: [facility] 05-16-2022 13:52-0400 SaO2% (BldA) [Mass fraction] 100 % [facility] Work Phone: [facility] 05-16-2022 13:52-0400 Systolic blood pressure 138 mm[Hg] [facility] Work Phone: [facility] 05-16-2022 11:54-0400 Body height 157.48 cm [facility] Work Phone: [facility] 05-16-2022 11:54-0400 Body mass index (BMI) [Percentile] Per age and sex 95.5 % [facility] Work Phone: [facility] 05-16-2022 11:54-0400 Body mass index (BMI) [Ratio] 31.1 kg/m2 [facility] Work Phone: [facility] 05-16-2022 11:54-0400 Body temperature 98.4 [degF] [facility] Work Phone: [facility] 05-16-2022 11:54-0400 Body weight 77.11 kg [facility] Work Phone: [facility] 05-15-2022 15:30-0400 Diastolic blood pressure 82 mm[Hg] [facility] Work Phone: [facility] 05-15-2022 15:30-0400 Heart rate 52 /min [facility] Work Phone: [facility] 05-15-2022 15:30-0400 Respiratory rate 14 /min [facility] Work Phone: [facility] 05-15-2022 15:30-0400 SaO2% (BldA) [Mass fraction] 99 % [facility] Work Phone: [facility] 05-15-2022 15:30-0400 Systolic blood pressure 134 mm[Hg] [facility] Work Phone: [facility] 05-15-2022 12:28-0400 Body height 157.48 cm [facility] Work Phone: [facility] 05-15-2022 12:28-0400 Body mass index (BMI) [Percentile] Per age and sex 95.5 % [facility] Work Phone: [facility] 05-15-2022 12:28-0400 Body mass index (BMI) [Ratio] 31 kg/m2 [facility] Work Phone: [facility] 05-15-2022 12:28-0400 Body temperature 98.1 [degF] [facility] Work Phone: [facility] 05-15-2022 12:28-0400 Body weight 77 kg [facility] Work Phone: [facility] 05-14-2022 22:56-0400 Body temperature 98.1 [degF] [facility] Work Phone: [facility] 05-14-2022 22:56-0400 Diastolic blood pressure 74 mm[Hg] [facility] Work Phone: [facility] 05-14-2022 22:56-0400 Heart rate 18 /min [facility] Work Phone: [facility] 05-14-2022 22:56-0400 Respiratory rate 18 /min [facility] Work Phone: [facility] 05-14-2022 22:56-0400 SaO2% (BldA) [Mass fraction] 94 % [facility] Work Phone: [facility] 05-14-2022 22:56-0400 Systolic blood pressure 137 mm[Hg] [facility] Work Phone: [facility] 05-14-2022 02:18-0400 Body height 157.48 cm [facility] Work Phone: [facility] 05-14-2022 02:18-0400 Body mass index (BMI) [Percentile] Per age and sex 95.5 % [facility] Work Phone: [facility] 05-14-2022 02:18-0400 Body mass index (BMI) [Ratio] 31.1 kg/m2 [facility] Work Phone: [facility] 05-14-2022 02:18-0400 Body temperature 97.9 [degF] [facility] Work Phone: [facility] 05-14-2022 02:18-0400 Body weight 77.11 kg [facility] Work Phone: [facility] 05-14-2022 02:18-0400 Diastolic blood pressure 65 mm[Hg] [facility] Work Phone: [facility] 05-14-2022 02:18-0400 Heart rate 54 /min [facility] Work Phone: [facility] 05-14-2022 02:18-0400 Respiratory rate 18 /min [facility] Work Phone: [facility] 05-14-2022 02:18-0400 SaO2% (BldA) [Mass fraction] 98 % [facility] Work Phone: [facility] 05-14-2022 02:18-0400 Systolic blood pressure 133 mm[Hg] [facility] Work Phone: [facility] 05-13-2022 12:09-0400 Heart rate 72 /min [facility] Work Phone: [facility] 05-13-2022 12:09-0400 Respiratory rate 18 /min [facility] Work Phone: [facility] 05-13-2022 12:09-0400 SaO2% (BldA) [Mass fraction] 98 % [facility] Work Phone: [facility] 05-13-2022 10:32-0400 Body height 156.21 cm [facility] Work Phone: [facility] 05-13-2022 10:32-0400 Body mass index (BMI) [Percentile] Per age and sex 95.9 % [facility] Work Phone: [facility] 05-13-2022 10:32-0400 Body mass index (BMI) [Ratio] 31.6 kg/m2 [facility] Work Phone: [facility] 05-13-2022 10:32-0400 Body temperature 98.1 [degF] [facility] Work Phone: [facility] 05-13-2022 10:32-0400 Body weight 77.11 kg [facility] Work Phone: [facility] 05-13-2022 10:32-0400 Diastolic blood pressure 87 mm[Hg] [facility] Work Phone: [facility] 05-13-2022 10:32-0400 Systolic blood pressure 145 mm[Hg] [facility] Work Phone: [facility] Encounters Encounter Date Encounter Type Care Provider Facility Start: 08-03-2024 End: 08-04-2024 Emergency department patient visit [facility] Work Phone: [facility] Work Phone: Start: 08-01-2024 End: 08-01-2024 Emergency department patient visit MODESTA ARCHIBALD [place] Start: 07-30-2024 End: 07-30-2024 Emergency department patient visit Cresencio Abel Facility[place] Start: 03-18-2024 End: 03-19-2024 Emergency department patient visit [facility] Work Phone: [facility] Work Phone: Start: 03-15-2024 End: 03-15-2024 Emergency department patient visit August Beck [facility] Start: 03-13-2024 End: 03-13-2024 Emergency department patient visit Jacinto Roman [facility] Start: 07-31-2023 End: 07-31-2023 Emergency department patient visit [facility] Work Phone: [facility] Work Phone: Start: 07-14-2023 End: 07-14-2023 ambulatory [facility] Work Phone: [facility] Work Phone: Start: 07-14-2023 End: 07-14-2023 Patient encounter procedure [facility] Work Phone: [facility] Start: 06-16-2023 End: 06-16-2023 ambulatory [facility] Work Phone: [facility] Work Phone: Start: 06-16-2023 End: 06-16-2023 Patient encounter procedure [facility] Work Phone: [facility] Start: 06-02-2023 Postop follow up vis it related to original px Colten Wesleyxa [facility] Start: 06-02-2023 End: 06-02-2023 ambulatory [facility] Work Phone: [facility] Other Start: 06-02-2023 End: 06-02-2023 Patient encounter procedure [facility] Work Phone: [facility] Start: 05-25-2023 End: 05-25-2023 Admission to same day surgery center [facility] Work Phone: [facility] [place] Start: 05-25-2023 End: 05-25-2023 ambulatory [facility] Work Phone: [facility] Work Phone: Start: 05-24-2023 End: 05-24-2023 ambulatory Colten Olexa Other [facility] Other Start: 05-24-2023 Telephone encounter Colten Wesleyxa [facility] Start: 05-23-2023 End: 05-23-2023 ambulatory Colten Olexa Other [facility] Other Start: 05-23-2023 Encounter for other preprocedural examination Colten Wesleyxa [facility] Start: 05-23-2023 Office outpatient ne w 45 minutes Colten SMITH [facility] Start: 03-15-2023 End: 03-15-2023 Departed Referred Services [facility] Work Phone: [facility] Start: 01-26-2023 End: 01-26-[address] DOCTOR JO Facility:[facility] Start: 01-06-2023 End: 01-07-2023 Evaluation and management of inpatient Services [facility] Work Phone: [facility] Work Phone: Start: 01-06-2023 observation encounter Services [facility] Work Phone: [facility] Work Phone: Start: 01-06-2023 End: 01-07-2023 Services [facility] Work Phone: [facility] Work Phone: Start: 01-02-2023 End: 01-02-2023 Services [facility] Work Phone: [facility]Emergency Room Work Phone: Start: 01-01-2023 End: 01-01-2023 ambulatory IRWIN LONG . Facility:[facility] Start: 12-31-2022 End: 12-31-2022 Emergency department patient visit Services [facility] Work Phone: [facility] Work Phone: Start: 12-31-2022 End: 12-31-2022 Services [facility] Work Phone: [facility]Emergency [facility] Work Phone: Start: 11-09-2022 End: 11-09-2022 Emergency department patient visit Services [facility] Work Phone: [facility] Work Phone: Start: 11-09-2022 End: 11-09-2022 Services [facility] Work Phone: [facility] Start: 11-07-2022 End: 11-07-2022 Emergency department patient visit [facility] Work Phone: [facility] Work Phone: Start: 11-07-2022 End: 11-07-2022 [facility] Work Phone: [facility] Start: 11-02-2022 End: 11-02-2022 Emergency department patient visit [facility] Work Phone: [facility] Work Phone: Start: 11-02-2022 End: 11-02-2022 [facility] Work Phone: [facility] Start: 10-31-2022 End: 10-31-2022 Emergency department patient visit [facility] Work Phone: [facility] Work Phone: Start: 10-31-2022 End: 10-31-2022 [facility] Work Phone: [facility] Start: 10-29-2022 End: 10-29-2022 Emergency department patient visit [facility] Work Phone: [facility] Start: 10-29-2022 End: 10-29-2022 [facility] Work Phone: [facility] Start: 08-27-2022 End: 08-27-2022 Departed Referred [facility] Work Phone: [facility] Start: 08-27-2022 End: 08-27-2022 [facility] Work Phone: [facility] Start: 08-20-2022 End: 08-22-2022 Evaluation and management of inpatient [facility] Work Phone: [facility] Start: 08-20-2022 End: 08-22-2022 [facility] Work Phone: [facility] Start: 08-19-2022 End: 08-20-2022 Emergency department patient visit [facility] Work Phone: [facility]Emergency Room Start: 08-19-2022 End: 08-20-2022 [facility] Work Phone: [facility]Emergency [facility] Start: 08-19-2022 End: 08-19-2022 Emergency department patient visit [facility] Work Phone: [facility]Emer[facility] Start: 08-19-2022 End: 08-19-2022 [facility] Work Phone: [facility]Emergency [facility] Start: 08-18-2022 End: 08-18-2022 Emergency department patient visit [facility] Work Phone: [facility]Emer[facility] Start: 08-18-2022 End: 08-18-2022 [facility] Work Phone: [facility]Emergency [facility] Start: 06-25-2022 End: 06-25-2022 Departed Referred Services [facility] Work Phone: [facility] Start: 06-09-2022 End: 06-09-2022 Admission to same day surgery center [facility] Work Phone: [facility] Start: 06-07-2022 End: 06-07-2022 Patient encounter procedure [facility] Work Phone: [facility]Surgical Testing Start: 05-26-2022 End: 05-26-2022 Departed Referred Services [facility] Work Phone: [facility] Start: 05-16-2022 ambulatory Luana Mak RN NURSE [employer] Comment on above: Abdominal Pain Start: 05-16-2022 End: 05-16-2022 Emergency department patient visit [facility] Work Phone: [facility]Emergency Room Start: 05-15-2022 End: 05-15-2022 Emergency department patient visit [facility] Work Phone: [facility]Emergency Room Start: 05-14-2022 End: 05-14-2022 Emergency department patient visit [facility] Work Phone: [facility]Emergency Room Start: 05-14-2022 End: 05-14-2022 Emergency department patient visit [facility] Work Phone: [facility]Emergency Room Start: 05-13-2022 End: 05-13-2022 Emergency department patient visit Services [facility] Work Phone: [facility]-Emergency Room Start: 06-23-2018 Evaluation and manag ement of inpatient Radha Adameurejosé manuel MohanLydia Facility:[facility] Start: 06-16-2018 Patient encounter DALI B SPLAWSKI Fa cility:[id number] Start: 06-05-2018 Patient encounter Mere Simpson Facility:[id number] Start: 04-14-2018 Patient encounter DALI B SPLAWSKI Fa cility:[id number] Start: 02-17-2018 Patient encounter Meremilo Puenteswell Facility:[id number] Start: 02-10-2018 Patient encounter DALI B SPLAWSKI Fa cility:[id number] Start: 12-16-2017 Patient encounter DALI B SPLAWSKI Fa cility:[id number] Start: 10-14-2017 Patient encounter DALI B SPLAWSKI Fa cility:[id number] Start: 09-28-2017 Patient encounter Mere Simpson Facility:[id number] Start: 08-25-2017 Patient encounter DALI B SPLAWSKI Fa cility:[facility] Start: 08-09-2017 End: 08-24-2017 Evaluation and management of inpatient AIMEE ALEMAN Facility:[facility] Procedures Date Procedure Procedure Detail Performing Clinician Start: 07-14-2023 X-ray of right knee [facility] Work Phone: Start: 06-16-2023 X-ray of right knee [facility] Work Phone: Start: 06-02-2023 X-ray of right knee Services [employer] Phone: Start: 05-25-2023 Arthroscopy of knee Services [employer] Phone: Start: 03-15-2023 Respiratory Panel (PCR) Services [facility] [employer] Phone: Start: 01-06-2023 Computed tomography of abdomen and pelvis with contrast Services [facility] [employer] Phone: Start: 01-06-2023 Plain chest X-ray Services [facility] [employer] Phone: Start: 01-06-2023 Pelvis X-ray Services [facility] [employer] Phone: Start: 01-02-2023 Urine culture Services [facility] [employer] Phone: Start: 12-31-2022 Influenza A and B virus antigen assay Services [facility] [employer] Phone: Start: 12-31-2022 Urine culture Services [facility] [employer] Phone: Start: 11-02-2022 Urine culture Services [facility] [employer] Phone: Start: 10-31-2022 Urine culture Services [facility] [employer] Phone: Start: 08-19-2022 Computed tomography of abdomen and pelvis with contrast Services [employer] Phone: Start: 06-09-2022 Esophagogastroduodenoscopy Services [facility] [employer] Phone: Start: 05-16-2022 Computed tomography of abdomen and pelvis with contrast Services [facility] [employer] Phone: Start: 08-21-2017 Introduction of Nutritional Substance [...] [facility] Work Phone: Services [facility] Work Phone: Plan of Treatment Date Care Activity Detail Author Start: 08-03-2024 [facility] Start: 03-18-2024 [facility] Start: 05-25-2023 [facility] Start: 05-25-2023 [facility] Start: 01-08-2023 Blood chemistry [facility] Start: 01-08-2023 [facility] Start: 01-07-2023 Blood chemistry [facility] Start: 01-07-2023 End: 01-07-2023 [facility] Start: 01-06-2023 Patient referral to dietitian [facility] Start: 01-06-2023 Hospital admission [facility] Start: 01-06-2023 [facility] Start: 01-06-2023 Computed tomography of abdomen and pelvis with contrast [facility] Start: 01-06-2023 CT Abdomen and Pelvis W contrast IV [facility] Start: 01-06-2023 End: 01-06-2023 [facility] Start: 01-06-2023 Urine culture [facility] Start: 12-31-2022 End: 12-31-2022 [facility] Start: 11-09-2022 [facility] Start: 10-29-2022 [facility] Start: 08-22-2022 [facility] Start: 08-22-2022 [facility] Work Phone: Start: 08-20-2022 Hospital admission [facility] Start: 08-20-2022 [facility] Work Phone: Start: 08-20-2022 [facility] Work Phone: Start: 08-19-2022 Computed tomography of abdomen and pelvis with contrast CT abdomen pelvis w con [facility] Start: 08-19-2022 CT Abdomen and Pelvis W contrast IV [facility] Work Phone: Start: 08-19-2022 [facility] Work Phone: Start: 07-29-2022 Influenza vaccination INFLUENZA (Season Ended) [facility] Start: 06-09-2022 [facility] Work Phone: Start: 2022 CHLAMYDIA SCREENING (18-24) CHLAMYDIA SCREENING (18-24) [facility] Start: 2022 GC (GONORRHEA) SCREENING (18-24) GC (GONORRHEA) SCREENING (18-24) [facility] Start: 2022 HEPATITIS C SCREENING HEPATITIS C SCREENING [facility] Start: 2022 HIV SCREENING HIV SCREENING [facility] Start: 2020 MENINGOCOCCAL CONJUGATE (1 - 2-dose series) MENINGOCOCCAL CONJUGATE (1 - 2-dose series) [facility] Start: 2018 PEDS TO ADULT TRANSITION ANNUAL ASSESSMENT PEDS TO ADULT TRANSITION ANNUAL ASSESSMENT [facility] Start: 2016 Adult depression screening assessment DEPRESSION SCREENING [facility] Start: 2016 PEDS TO ADULT TRANSITION INITIAL DISCUSSION PEDS TO ADULT TRANSITION INITIAL DISCUSSION [facility] Start: 2015 HPV VACCINE (1 - 2-dose series) HPV VACCINE (1 - 2-dose series) [facility] Start: 2014 MENINGOCOCCAL B: Consider based on risk (1 of 2 - Risk Bexsero 2-dose series) MENINGOCOCCAL B: Consider based on risk (1 of 2 - Risk Bexsero 2-dose series) [facility] Start: 2011 Urine microalbumin profile DTAP,TDAP,TD (1 - Tdap) [facility] Start: 2009 COVID-19 VACCINE (#1) [facility] Amphetamines [Presen ce] in Urine [facility] Work Phone: Bacteria identified in Blood by Culture [facility] Bacteria identified in Urine by Culture [facility] Bacteria identified in Urine by Culture [facility] Barbiturates [Presen ce] in Urine [facility] Work Phone: Basophils [#/volume] in Blood by Automated count [facility] Basophils/100 leukoc ytes in Blood by Automated count [facility] Benzodiazepines [Pre sence] in Urine [facility] Work Phone: Bilirubin measurement, urine [facility] Work Phone: Cannabinoids [Presen ce] in Urine by Screen method [facility] Work Phone: Choriogonadotropin ( test) [Presence] in Urine [facility] Work Phone: Cocaine [Presence] in Urine [facility] Work Phone: Color of Urine [facility] Work Phone: Detection of hemoglobin [facility] Work Phone: Eosinophils/100 leuk ocytes in Blood by Automated count [facility] Erythrocyte distribu tion width [Ratio] by Automated count [facility] Erythrocytes [#/volu me] in Blood [facility] Glucose [Mass/volume ] in Urine by Test strip [facility] Work Phone: Hematocrit [Volume F raction] of Blood [facility] Hemoglobin [Mass/vol ume] in Blood [facility] Homogenous nuclear A b pattern [Titer] in Serum [facility] Work Phone: Leukocytes [#/volume ] corrected for nucleated erythrocytes in Blood by Automated coun [facility] Leukocytes [#/volume ] in Blood [facility] Lymphocytes [#/volum e] in Blood by Automated count [facility] Lymphocytes/100 leuk ocytes in Blood by Automated count [facility] MCH [Entitic mass] b y Automated count [facility] MCHC [Mass/volume] b y Automated count [facility] MCV [Entitic volume] by Automated count [facility] Measurement of keton es in urine using dipstick [facility] Work Phone: Monocytes [#/volume] in Blood by Automated count [facility] Monocytes/100 leukoc ytes in Blood by Automated count [facility] Neutrophils [#/volum e] in Blood by Automated count [facility] Neutrophils/100 leuk ocytes in Blood by Automated count [facility] Nuclear Ab [Titer] in Serum [facility] Work Phone: Nucleated erythrocyt es [Presence] in Blood by Automated count [facility] Patient Education [facility] Work Phone: Patient referral [facility] Work Phone: Phencyclidine [Prese nce] in Urine [facility] Work Phone: Platelet mean volume [Entitic volume] in Blood by Automated count [facility] Platelets [#/volume] in Blood [facility] Protein measurement, urine F [facility] Work Phone: SARS-CoV-2 (COVID-19 ) N gene [Presence] in Respiratory specimen by JANAK with probe detection [facility] Work Phone: Urinalysis, specific gravity measurement [facility] Work Phone: Urine culture Urine Culture [facility] Urine culture [facility] Urine dipstick for nitrite F [facility] Work Phone: Urine dipstick for s pecific gravity [facility] Work Phone: Urine pH test [facility] Work Phone: Urobilinogen concent ration, test strip measurement [facility] Work Phone: [facility] Immunizations Immunization Date Immunization Notes Care Provider Susan jasslyn 01-17-2018 tetanus toxoid, redu yoni diphtheria toxoid, and acellular pertussis vaccine, adsorbed Services [facility] Work Phone: [facility] 01-07-2017 Human Papillomavirus 9-valent vaccine Colten Olexa Other [facility] [employer] [facility] Other 01-07-2017 HPV, unspecified formulation Services [facility] Work Phone: [facility] 09-06-2016 influenza, injectabl e, quadrivalent, preservative free Colten Olexa Other [facility] 09-06-2016 Human Papillomavirus 9-valent vaccine [employer] Olex[employer] Other [facility] Other 09-06-2016 HPV, unspecified formulation Services [facility] Work Phone: [facility] 07-01-2016 human papilloma viru s vaccine, quadrivalent [employer] Olexa Other [facility] 07-01-2016 meningococcal polysaccharide (groups A, C, Y and W-135) diphtheria toxoid conjugate vaccine (MCV4P) [employer] Olexa Other [facility] 07-01-2016 tetanus toxoid, redu yoni diphtheria toxoid, and acellular pertussis vaccine, adsorbed Colten Olexa Other [facility] 09-01-2015 influenza, injectabl e, quadrivalent, preservative free [employer] Olex[employer] Other [facility] 08-19-2014 influenza, injectabl e, quadrivalent, contains preservative Services [facility] Work Phone: [facility] 08-19-2014 influenza, injectabl e, quadrivalent, preservative free [employer] Other [employer] [facility] Other 08-17-2013 influenza, seasonal, injectable, preservative free Colten Miller Other [facility] Payers Date Payer Category Payer Self-pay 2019 Medicaid [employer] [id number] 2019-Present [phone] [address] [place] [address] Medicaid [id number] 2004 Unknown [id number] 2004 Unknown [id number] 2004 Unknown [id number] 2004 Unknown [id number] 2004 Unknown [id number] 2004 Unknown [id number] [id number] 1969 Unknown [id number] [id number] 1969 Unknown [id number] 1959 Medicaid [id number] Medicaid [id number] Medicaid [id number] [id number] Unknown [id number] Unknown [id number] Unknown [id number] Unknown [id number] Unknown [id number] Unknown [id number] Unknown [id number] Social History Date Type Detail Facility Start: 10-09-2021 End: 03-13-2024 Tobacco smoking status [facility] Never smoked tobacco [facility] Start: 10-09-2021 Tobacco use and exposure Smokeless tobacco non-user [facility] Start: 10-09-2021 Alcohol intake Lifetime non-d isael (finding) [facility] Start: 10-09-2021 History SDOH Alcohol Frequency 1 [facility] Start: 2005 Sex Assigned At Not on file [facility] Start: 06-09-2022 End: 08-03-2024 Tobacco smoking status WAIS Smoker (finding) [facility] Start: 2005 Sex Assigned At Female F [facility] Start: 08-18-2022 End: 05-25-2023 Tobacco smoking status [facility] Current some day smoker [facility] Start: 01-06-2023 Tobacco smoking status [facility] Ex-smoker (finding) [facility] Sex Assigned At [facility] Tobacco smoking status Never [facility] NEGATED: Highlighted row [facility] Medical Equipment Procedure Code Equipment Code Equipment Origin al Text Equipment Identifier Dates Arthroscopy, knee Tendon/ligamen t bone anchor, non-bioabsorbable [id number] FDA Start: 05-25-2023 Arthroscopy, knee Soft-tissue/me sh anchor, non-bioabsorbable [id number] FDA Start: 05-25-2023 Arthroscopy, knee Tendon/ligamen t bone anchor, bioabsorbable [id number] FDA Start: 05-25-2023 Goals Date Patient Goal Desired Activity /State Functional Status Date Assessment Result Facility 07-30-2024 Functional Status N/A [facility] 03-15-2024 Functional Status N/A [facility] 03-13-2024 Functional Status N/A [facility] 01-07-2023 Functional status Patient at Baseline [facility] Work Phone: 01-06-2023 Functional status Patient at Baseline [facility] Work Phone: 08-22-2022 Functional status Patient at Baseline [facility] Work Phone: Mental Status Date Assessment Result Facility 01-07-2023 Cognitive function Patient at Baseline [facility] Work Phone: 01-06-2023 Cognitive function Patient at Baseline [facility] Work Phone: 08-22-2022 Cognitive function Patient at Baseline [facility] Work Phone: Clinical Notes 09-28-2015 to 08-01-2024 Note Date & Type Note Facility 08-01-2024 Note ED Patient Education Note Gastroenterology Hypokalemia Hypokalemia means that the amount of potassium in the blood is lower than normal. Potassium is a mineral (electrolyte) that helps regulate the amount of fluid in the body. It also stimulates muscle tightening (contraction) and helps nerves work properly. Normally, most of the body's potassium is inside cells, and only a very small amount is in the blood. Because the amount in the blood is so small, minor changes to potassium levels in the blood can be life-threatening. What are the causes? This condition may be caused by: ? Antibiotic medicine. ? Diarrhea or vomiting. Taking too much of a medicine that helps you have a bowel movement (laxative) can cause diarrhea and lead to hypokalemia. ? Chronic kidney disease (CKD). ? Medicines that help the body get rid of excess fluid (diuretics). ? Eating disorders, such as anorexia or bulimia. ? Low magnesium levels in the body. ? Sweating a lot. What are the signs or symptoms? Symptoms of this condition include: ? Weakness. ? Constipation. ? Fatigue. ? Muscle cramps. ? Mental confusion. ? Skipped heartbeats or irregular heartbeat (palpitations). ? Tingling or numbness. How is this diagnosed? This condition is diagnosed with a blood test. How is this treated? This condition may be treated by: ? Taking potassium supplements. ? Adjusting the medicines that you take. ? Eating more foods that contain a lot of potassium. If your potassium level is very low, you may need to get potassium through an IV and be monitored in the hospital. Follow these instructions at home: Eating and drinking ? Eat a healthy diet. A healthy diet includes fresh fruits and vegetables, whole grains, healthy fats, and lean proteins. ? If told, eat more foods that contain a lot of potassium. These include: ? Nuts, such as peanuts and pistachios. ? Seeds, such as sunflower seeds and pumpkin seeds. ? Peas, lentils, and santiago beans. ? Whole grain and bran cereals and breads. ? Fresh fruits and vegetables, such as apricots, avocado, bananas, cantaloupe, kiwi, oranges, tomatoes, asparagus, and potatoes. ? Juices, such as orange, tomato, and prune. ? Lean meats, including fish. ? Milk and milk products, such as yogurt. General instructions ? Take fvxl-sbl-vqulbyz and prescription medicines only as told by your health care provider. This includes vitamins, natural food products, and supplements. ? Keep all follow-up visits. This is important. Contact a health care provider if: ? You have weakness that gets worse. ? You feel your heart pounding or racing. ? You vomit. ? You have diarrhea. ? You have diabetes and you have trouble keeping your blood sugar in your target range. Get help right away if: ? You have chest pain. ? You have shortness of breath. ? You have vomiting or diarrhea that lasts for more than 2 days. ? You faint. These symptoms may be an emergency. Get help right away. Call 911. ? Do not wait to see if the symptoms will go away. ? Do not drive yourself to the hospital. Summary ? Hypokalemia means that the amount of potassium in the blood is lower than normal. ? This condition is diagnosed with a blood test. ? Hypokalemia may be treated by taking potassium supplements, adjusting the medicines that you take, or eating more foods that are high in potassium. ? If your potassium level is very low, you may need to get potassium through an IV and be monitored in the hospital. This information is not intended to replace advice given to you by your health care provider. Make sure you discuss any questions you have with your health care provider. Document Revised: 07/29/2022 Document Reviewed: 07/29/2022 [employer] Patient Education ? 2023 Xyleme. Nausea and Vomiting, Adult Nausea is the [...] drinks, and fruit juice that has water adde (more content not included)... [facility] 07-31-2024 Hospital Discharg e instructions Patient Education 07/30/2024 22:55:49 Nausea and Vomiting, Adult Nausea and Vomiting, [...] water added (diluted fruit juice). Eat bland, vjzz-yp-qszpwo foods in small amounts as you are able. These foods include bananas, applesauce, rice, lean meats, toast, and crackers. Avoid fluids that contain a lot of sugar or caffeine, such as energy drinks, sports drinks, and soda. Avoid alcohol. Avoid spicy or fatty foods. General instructions Take tvil-nmy-riiguqg and prescription medicines only as told by your health care provider. Drink enough fluid to keep your urine pale yellow. Wash your hands often using soap and water for at least 20 seconds. If soap and water are not available, use hand p 3 armament/ordnance ima technician. Make sure that everyone in your household [...] eating and drinking to prevent dehydration. Take kqcq-nvy-irptkra and prescription medicines only as told by [...] provider. Document Revised: 05/21/2022 Document Reviewed: 05/21/2022 [employer] Patient Education 2023 Xyleme. Follow Up Care 07/30/2024 19:27:35 With:FAMILIA CHAND Address: [facility] WERO ESTRADA [address] [address]- Business (1) When:08/02/2024 [facility] 07-30-2024 Note ED Patient Education Note Gastroenterology Nausea and [...] added (diluted fruit juice). ? Eat bland, jhuy-ca-fuuoqz foods in small amounts as you are able. These foods include bananas, applesauce, rice, lean meats, toast, and crackers. ? Avoid fluids that contain a lot of sugar or caffeine, such as energy drinks, sports drinks, and soda. ? Avoid alcohol. ? Avoid spicy or fatty foods. General instructions ? Take bqdw-cua-mxpzurh and prescription medicines only as told by your health care provider. ? Drink enough fluid to keep your urine pale yellow. ? Wash your hands often using soap and water for at least 20 seconds. If soap and water are not available, use hand p 3 armament/ordnance ima technician. ? Make sure that everyone in your [...] and drinking to prevent dehydration. ? Take gufh-byg-rwqplsn and prescription medicines only as told by [...] provider. Document Revised: 05/21/2022 Document Reviewed: 05/21/2022 [employer] Patient Education ? 2023 Xyleme. [facility] 07-30-2024 Evaluation + Plan note Extrac venkata from: Title:ED Note Author:Dustin Villalobos DO Date :07/30/24 AP (abdominal pain) (R10.9: Unspecified abdominal pain) N&V (nausea and vomiting) (R11.2: Nausea with vomiting, unspecified) Orders: acetaminophen + Generic Diluent 100 mL, 1,000 mg = 100 mL, Soln-IV, IV Piggyback, Once, Stop date 07/30/24 20:37:00 EDT, STAT, Start date 07/30/24 20:37:00 EDT, 400 mL/hr, Infuse over 15 minute(s) famotidine, 20 mg = 2 mL, Soln-IV, IV Push, Once, Stop date 07/30/24 20:01:00 EDT, STAT, Start date 07/30/24 20:01:00 EDT, 07/30/24 20:01:00 EDT ondansetron, 4 mg = 1 tab(s), Oral, q8hr, PRN Nausea/Vomiting, # 16 tab(s), Refills(s) 0, [id number], cm, 07/30/24 19:37:00 EDT, Height/Length Dosing, 96.1, kg, 07/30/24 19:37:00 EDT, Weight Dosing promethazine, 12.5 mg = 1 tab(s), Oral, q8hr, PRN as needed for nausea/vomiting, second line, # 10 tab(s), Refills(s) 0, [id number], 157, cm, 07/30/24 19:37:00 EDT, Height/Length Dosing, 96.1, kg, 07/30/24 19:37:00 EDT, Weight Dosing promethazine, 12.5 mg = 1 supp, Rectal, q8hr, PRN as needed for nausea/vomiting, 3rd line, # 6 EA, Refills(s) 0, [id number], 157, cm, 07/30/24 19:37:00 EDT, Height/Length Dosing, 96.1, kg, 07/30/24 19:37:00 EDT, Weight Dosing promethazine 12.5 mg + Sodium Chloride 0.9% intravenous solution 50 mL, Injection, IV Piggyback, Once, Stop date 07/30/24 20:01:00 EDT, STAT, Start date 07/30/24 20:01:00 EDT, 151.5 mL/hr, Infuse over 20 minute(s) Sodium Chloride 0.9% intravenous solution, 1,000 mL, Soln-IV, IV, Once, Stop date 07/30/24 20:01:00 EDT, STAT, Start date 07/30/24 20:01:00 EDT, Infuse over 61, minute(s) Basic Metabolic Panel CBC w/ Auto Diff eGFR Hepatic Function Panel Lipase Level Magnesium Level Saline Lock Insert [facility] 04-18-2024 Hospital Discharge instructions Patient Education 03/15/2024 13:49:41 Pneumomediastinum Pneumomediastinum Pneumomediastinum is the presence of air in the mediastinum. This is the area of the body that is between the two lungs, with the breastbone in front of it. Mild cases of this condition may not causeproblems. In severe cases, the difference in pressure [...] you need help quitting, ask your health careprovider. Do not use recreational drugs. Take gslz-iss-nnzulpt and prescription medicines only as told by [...] if air leaks out of your lungs, airways,or intestines and into your mediastinum. Symptoms may [...] provider. Document Revised: 06/08/2022 Document Reviewed: 06/08/2022 [employer] Patient Education 2022 Xyleme. 03/15/2024 13:49:41 Nausea and Vomiting, Adult Nausea and Vomiting, Adult Nausea is the feeling that you have an upset stomach or that you are about to vomit. As nausea getsworse, it can lead to vomiting. Vomiting is when stomach contents forcefully come out of your mouthas a result of nausea. Vomiting can make [...] water added (diluted fruit juice). Eat bland, hhfx-xa-tyzkky foods in small amounts as you are able. These foods include bananas, applesauce, rice, lean meats, toast, and crackers. Avoid fluids that contain a lot of sugar or caffeine, such as energy drinks, sports drinks, and soda. Avoid alcohol. Avoid spicy or fatty foods. General instructions Take huze-ggq-abqakgo and prescription medicines only as told by your health care provider. Drink enough fluid to keep your urine pale yellow. Wash your hands often using soap and water for at least 20 seconds. If soap and water are not available, use hand p 3 armament/ordnance ima technician. Make sure that everyone in your household [...] you are about to vomit. As nausea getsworse, it can lead to vomiting. Vomiting can make you feel weak and cause you to become dehydrated. Follow instructions from your health care provider about eating and drinking to prevent dehydration. Take jgox-thf-yjxwrgl and prescription medicines only as told by [...] provider. Document Revised: 05/21/2022 Document Reviewed: 05/21/2022 [employer] Patient Education 2022 Xyleme. Follow Up Care 03/15/2024 10:34:05 With:Kirk Serrano Address:Unknown When:03/22/2024 13:33:04 Comments:Make sure to follow-up with Dr. Serrano at the surgery clinic in 1 week as instructed. Return to the emergency room if you develop chest pain, shortness of breath or any symptoms. [facility]04-18-2024 Evaluation + Plan noteExtracted from: Title:ED Note Author:Ebony Birmingham, August Frost [...] CT Chest w/ Contrast eGFR Magnesium Level [facility]04-17-2024 Hospital Discharge instructions Patient Education 03/13/2024 22:27:59 Nausea and Vomiting, Adult, Culg-ku-Libd Nausea and Vomiting, Adult Nausea is feeling [...] fruit juice). ?Low-calorie sports drinks. Eat bland, trwn-tc-riqrnc foods in small amounts as you are able, such as: ?Bananas. ?Applesauce. ?Rice. ?Low-fat (lean) meats. ?[place]. ?Crackers. Avoid drinking fluids that have a lot of sugar or caffeine in them. This includes energy drinks, sports drinks, and soda. Avoid alcohol. Avoid spicy or fatty foods. General instructions Take hvbt-zny-bjbgoni and prescription medicines only as told by your doctor. Drink enough fluid to keep your pee (urine) pale yellow. Wash your hands often with soap and water for at least 20 seconds. If you cannot use soap and water, use hand p 3 armament/ordnance ima technician. Make sure that everyone in your home [...] your doctor about eating and drinking. Take mzxq-ndp-uqlzhxi and prescription medicines only as told by your doctor. Contact your doctor if your symptoms get worse or you have new symptoms. Keep all follow-up visits. This information is not intended to replace advice given to you by your health care provider. Make sure you discuss any questions you have with your health care provider. Document Revised: 05/21/2022 Document Reviewed: 05/21/2022 [employer] Patient Education 2022 Xyleme. 03/13/2024 22:27:59 Muscle Strain, Uiwo-sq-Xcwi Muscle Strain A muscle strain, or pulled [...] is not too tight. General instructions Take evvx-tnl-xdhgpsx and prescription medicines only as told by [...] provider. Document Revised: 02/01/2022 Document Reviewed: 02/01/2022 [employer] Patient Education 2022 Xyleme. Follow Up Care 03/13/2024 17:33:30 With:MODESTA ARCHIBALD Address: [address] [place] [address] [phone] Business (1) When:03/16/2024 Comments:You can use the medications as prescribed as needed for pain, nausea. Please follow-up with your primary care doctor for further evaluation and management. Please return to the ED if you develop chest pain, difficulty breathing or if any concerning signs or symptoms. [facility]04-16-2024 Evaluation + Plan noteExtracted from: Title:ED [...] day(s), # 9 tab(s), Refills(s) 0, [id number] 160, cm, 03/13/24 17:38:00 EDT, Height/Length Dosing, 95.5, kg, 03/13/24 17:38:00 EDT, Weight Dosing morphine, 4 mg = 1 mL, Injection, IV Push, Once, Stop date 03/13/24 19:50:00 EDT, STAT, Start date 03/13/24 19:50:00 EDT, 03/13/24 19:50:00 EDT naproxen, 500 mg = 1 tab(s), Oral, BID, PRN for pain, # 20 tab(s), Refills(s) 0, [id number], 160, cm, 03/13/24 17:38:00 EDT, Height/Length Dosing, 95.5, kg, 03/13/24 17:38:00 EDT, Weight Dosing orphenadrine, 60 mg = 2 mL, Injection, IV Push, Once, Stop date 03/13/24 20:27:00 EDT, STAT, Start date 03/13/24 20:27:00 EDT, 03/13/24 20:27:00 EDT promethazine, 25 mg = 1 supp, Rectal, q6hr, PRN Nausea/Vomiting, # 6 EA, Refills(s) 0, Pharmacy: [facility]/pharmacy #[id number], 160, cm, 03/13/24 17:38:00 EDT, Height/Length [...] kg, 2.06, m2 XR Chest 2 Views [facility]07-06-2023 Evaluation note* Encounter Date Diagnosis Assessment [...] Other specified postprocedural states (ICD-10 - Z98.890) [facility] Other 06-27-2023 Evaluation note* Encounter Date Diagnosis Assessment Notes Treatment Notes Treatment Clinical Notes Apr, Other specified postprocedural states (ICD-10 - Z98.890) [facility] Other 06-26-2023 Evaluation note* Encounter Date Diagnosis [...] pain for many months and potentially cause chcf pain and stiffness. We have discussed the many potential complications of surgery including respiratory, cardiac, and patient positioning during anesthesia. The risks of DVT, scarring, termite exterminator helper pain, non union, hardware failure, development of [...] S82.111A) Apr, Pre-op exam (ICD-10 - Z01.818) [facility] Other 02-10-2023 History and physical note Author Eliana Bautista [facility] January 07, 2023 2:11am Note Date/Time January 06, 2023 5 :30pm [facility] EN[facility] [address] [place] [address] Hospitalist H&P Signed Patient: Pili Parikh MR#: [id number] : 2005 Acct:[id number] Age/Sex: 17 / F Adm Date: 3 Loc: Room: [address] [place] [address] Type: ADM INO Attending Dr: Eliana Bautista MD Copies to: [facility] FRANKY Starkey MD~ HPI DATE OF [...] unless noted in the HPI or [facility] Att[facility] Statement: The following information was validated [...] promethazine 25 mg rectal suppository 25 mg MT Q6H PRN Nausea #10 supp 01/02/23 [Rx [...] % (Auto) 19.9 % (.) 01/06/23 14:20 Millard % (Auto) 7.4 % (.) 01/06/23 14:20 Eos % (Auto) 2.3 % (.) 01/06/23 14:20 Baso % (Auto) 0.3 % (.) 01/06/23 14:20 Nucleat RBC Rel Count 0.1 /100 WBC (0-0.5) 01/06/23 14:20 Neut # (Auto) 12.4 x10E3/uL (1.2-7.7) H 01/06/23 14:20 Lymph # (Auto) 3.5 x10E3/uL (1.20-4.8) 01/06/23 14:20 Millard # (Auto) 1.3 x10E3/uL (0.1-1.00) H 01/06/23 [...] pH 6.5 (5.0-9.0) 01/06/23 16:10 Ur Specific Ulmer 1.027 (1.001-1.030) 01/06/23 16:10 Urine Protein 100 [...] MD Documented By: Anette Stout APRN 01/06/23 1658 Signed By: <Electronically signed by FRANKY Stout> 01/06/23 1817 <Electronically signed by Eliana Bautista MD> 01/07/23 0211 [facility] Work Phone: 1(809) 687-679109-24-2022 Progress note Author Gregorio Carey [facility] August 21, 2022 5:01pm Note Date/Time August 21, 2022 5:01pm [facility] [address] [place] [address] Hospitalist Progress Note Signed Patient: Pili Parikh MR#: [id number] : 2005 Acct:[id number] Age/Sex: 17 / F Adm Date: 2 Loc: Room: 9X4555-9 Type: ADM IN Attending Dr: Gregorio Carey [...] alot of discomfort. She recalls that the medical screener told her that in warm water against [...] Dose Route Start Last Admin Trade Name Simoneq PRN Reason Stop Dose Admin Haloperidol Lactate [...] 1 Gm/10 Ml Udc PO 08/22/23 06:59 TID.AC.[facility] BRANSON A&P - Hospitalist Assessment/Plan (1) Intractable nausea [...] signed by Gregorio Carey DO> 08/21/22 1701 [facility] Work Phone: 1(247) 743-994009-23-2022 History and physical note Author Gregorio Carey [facility] August 20, 2022 8:17pm Note Date/Time August 20, 2022 8:17pm [facility] [address] [place] [address] Hospitalist H&P Signed Patient: Pili Parikh MR#: [id number] : 2005 Acct:[id number] Age/Sex: 17 / F Adm Date: 2 Loc: Room: 9S7846-3 Type: ADM IN Attending Dr: Gregorio Carey DO Copies to: [facility] Senior Gregorio Carey, ~ HPI DATE OF EXAMINATION: 08/20/22 CHIEF [...] 08/20/22 16:21 MPV 8.6 fl (6.3-10.7) 08/20/22 16: Neut % (Auto) 84.1 % (.) 08/20/22 16: Lymph % (Auto) 11.5 % (.) 08/20/22 16: Millard % (Auto) 3.7 % (.) 08/20/22 16:21 Eos % (Auto) 0.3 % (.) 08/20/22 16: Baso % (Auto) 0.4 % (.) 08/20/22 16:21 Neut # (Auto) 9.2 x10E3/uL (1.2-7.7) H 08/20/22 16:21 Lymph # (Auto) 1.3 x10E3/uL (1.20-4.8) 08/20/22 16:21 Millard # (Auto) 0.4 x10E3/uL (0.1-1.00) 08/20/22 16:21 [...] <Electronically signed by Gregorio Carey DO> 08/20/222016 [facility] Work Phone: 1(220) 113-192806-19-2022 Miscellaneous Notes* Telephone Encounter - Luana Mak [...] if she can find a way to [facility], she will go there. Reason for Disposition Chest pain [1] Chest pain lasts > 5 minutes AND [2] described as crushing, pressure-like, or heavy Protocols used: ABDOMINAL PAIN - DDEWV-EABII-TO, CHEST PPSQ-DZFUR-AM [facility] NoteHNO ID: [id number] Author: Rolando Wooten MD Service: ? Author [...] completed when applicable. 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 The patient wished to proceed. S/he was re-identified and a time out obtained. 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 Drainage [...] there were no complication. MD Rolando Cherry, [facility]11-12-2021 NoteHNO ID: [id number] Author: Rolando Wooten MD Service: ? 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 Medical History intermittent asthma Medical History lactose intolerance Medical History POTS diag 09/2015 Surgical History appendectomy 2018 Hospitalization History strepthroat, uri, dehydr ation, otitis media 2004 Hospitalization History dehydtation 2006 Hospitalization History [facility] - persistent vomiti ng 09/12- Hospitalization History 3 days vomitting blood 0 01/2017 Hospitalization History vomiting, abd pain, dehy dration [facility] 07/22-07/27/2017 Hospitalization History RBC 08/14 meebee Other Evaluation noteNo assessment information available [facility] Work Phone: Evaluation note* Diagnosis Onset Date Resolution Status Nausea & vomiting acute [facility] Work Phone: Evaluation note* Diagnosis Onset Date Resolution Status Dehydration acute Hypokalemia acute Intractable nausea and vomiting acute Nausea & vomiting acute [facility] Work Phone: Evaluation note* Diagnosis Onset Date Resolution Status Abdominal pain acute Acute hypokalemia acute Chest pain acute Dehydration acute Hypokalemia acute Hypovolemia acute Beverley-Cotton tear acute Nausea & vomiting acute [facility] Work Phone: History and physical note Author Eliana Bautista [facility] January 07, 2023 2:11am Note Date/Time January 06, 2023 5 :30pm [facility] [address] [place] [address] Hospitalist H&P Signed Patient: Pili Parikh MR#: [id number] : 2005 Acct:[id number] Age/Sex: 17 / F Adm Date: 3 Loc: Room: [address] [place] [address] Type: ADM INOo Attending Dr: Eliana Bautista MD Copies to: [facility] FRANKY Starkey MD~ HPI DATE OF [...] unless noted in the HPI or below [facility] Attestation Statement: The following information was validated [...] promethazine 25 mg rectal suppository 25 mg MT Q6H PRN Nausea #10 supp 01/02/23 [Rx [...] % (Auto) 19.9 % (.) 01/06/23 14:20 Millard % (Auto) 7.4 % (.) 01/06/23 14:20 Eos % (Auto) 2.3 % (.) 01/06/23 14:20 Baso % (Auto) 0.3 % (.) 01/06/23 14:20 Nucleat RBC Rel Count 0.1 /100 WBC (0-0.5) 01/06/23 14:20 Neut # (Auto) 12.4 x10E3/uL (1.2-7.7) H 01/06/23 14:20 Lymph # (Auto) 3.5 x10E3/uL (1.20-4.8) 01/06/23 14:20 Millard # (Auto) 1.3 x10E3/uL (0.1-1.00) H 01/06/23 [...] pH 6.5 (5.0-9.0) 01/06/23 16:10 Ur Specific Ulmer 1.027 (1.001-1.030) 01/06/23 16:10 Urine Protein 100 [...] signed by Eliana Bautista MD> 01/07/23 0211 [facility] Work Phone: Hospital course Narrative No data available for this section [facility] Work Phone: Hospital Discharge instructions Additional Instructions Follow-up with your primary care doctor Return to ED if develop worsening symptoms or concerns[facility] Work Phone: Hospital Discharge instructions Additional Instructions Follow-up with your primary care doctor Return to the ED if you develop worsening symptoms or concernsPark[facility] Work Phone: Hospital Discharge instructions Additional Instructions Take Phenergan as prescribed for nausea vomiting. Take Motrin and Tylenol as needed for muscle aches and pains. Take Carafate as prescribed.[facility] Work Phone: Hospital Discharge instructions Additional Instructions [...] you should first call your surgeon at [phone] for advice. If your are unable to contact your surgeon, seek help from a hospital emergency room. [facility] Work Phone: Hospital Discharge instructions Additional Instructions It was recommended that you stay to get further blood work done that is pending at this time and you could be at risk for things such as abnormal blood flow to your heart wall muscle that could lead to permanent damage of your heart or given your blood work back. You could also be at risk for possible heart dysrhythmias related to electrolyte abnormalities from your vomiting that could lead to as well. You should return at any time if you change her mind about wanting further workup and follow-up with your family physician as soon as possible.[facility] Work Phone: Progress note No data available for this section [facility] Summary Purpose Family History No Family [...] Hypertension Unknown Not Specified Malignant neoplasm Unknown Relationship Condition Age at Onset Recorded Date/T marvin mother Depression Unknown father Depression Unknown father Malignant neoplasm of kidney Unknown father Diabetes mellitus Unknown mother Anxiety Unknown mother Fibromyalgia Unknown mother Epilepsy Unknown mother Malignant neoplasm of cervix Unknown aunt Malignant neoplasm of cervix Unknown Malignant neoplasm Unknown grandparent Hypertension Unknown mother Malignant neoplasm Unknown Advance Directives No Advanced [...] pain vomitting Chief Complaint Chest Pain, N/V Chief Complaint Dizzy, CP, N/V Additional Source Comments INFORMATION SOURCE (unrecogn ized section and content) DATE CREATED AUTHOR 06/05/2018 [employer] DATE CREATED AUTHOR AUTHOR'S ORGANIZ ATION 07/14/2018 [facility] DATE CREATED AUTHOR AUTHOR'S ORGANIZ ATION 01/04/2022 [facility] DATE CREATED AUTHOR AUTHOR'S ORGANIZ ATION 02/02/2023 [facility] DATE CREATED AUTHOR AUTHOR'S ORGANIZ ATION 07/30/2024 [facility] DATE CREATED AUTHOR AUTHOR'S ORGANIZ ATION 08/02/2024 [facility] DATE CREATED AUTHOR AUTHOR'S ORGANIZ ATION 08/05/2024 [facility] DATE CREATED AUTHOR AUTHOR'S ORGANIZ ATION 08/06/2024 [facility] DATE CREATED AUTHOR AUTHOR'S ORGANIZ ATION 08/19/2024 [facility] Source Comments (unrecognize d section and content) In the event this informatio n is protected by the Federal Confidentiality of Alcohol and Drug Abuse Patient Records regulations: The Federal rules restrict any use of the information to criminally investigate or prosecute any alcohol or drug abuse patient.[facility] Reason for Visit (unrecogniz ed section and content) Reason Comments Abdominal Pain Care Teams (unrecognized sec tion and content) Team Status: Inactive Member Role Status Dates Services [facility] Primary Care Provider Ac tive Modesta Chand NP-C Attending Provide r Active Team Status: Inactive Member Role Status Dates Services [facility] Primary Care Provider Active Modesta Chand NP-Trinidad Attending Provide r Active Team Status: Inactive Member Role Status Dates Services [facility] Primary Care Provider Active Brennen Britt MD Attending Provider Active Team Status: Inactive Member Role Status Dates Services [facility] Primary Care Provider Active Art Bianchi DO Emergency Provider Active Team Status: Inactive Member Role Status Dates Services [facility] Primary Care Provider Active Ravi Arguello DO Emergency Provider Active Team Status: Inactive Member Role Status Dates Services [facility] Primary Care Provider Active Ender Donovan DO Emergency Provider Active Team Status: Inactive Member Role Status Dates Services [facility] Primary Care Provider Active Gilson Castro DO Emergency Provider Active Team Status: Active Member Role Status Dates Services [facility] Primary Care Provider Ac tive Team Status: Inactive Member Role Status Dates Services [facility] Primary Care Provider Ac latesha Rivera APRN Emergency Provider Active Team Status: Inactive Member Role Status Dates Services [facility] Primary Care Provider Ac lulve Colten Fry Jr, MD Emergency Provider Active Team Status: Inactive Member Role Status Dates Services [facility] Primary Care Provider Ac latesha Castro DO Emergency Provider Active Team Status: Active Member Role Status Dates Services [facility] Primary Care Provider Ac latesha Castro DO Emergency Provider Active Gregorio Carey , DO Admit Provider, Attending Pr ovidpierce Active Team Status: Inactive Member Role Status Dates Services [facility] Primary Care Provider Ac latesha Castro DO Emergency Provider Active Gregorio Carey , DO Admit Provider, Attending Pr ovider Active Team Status: Inactive Member Role Status Dates Services [facility] Primary Care Provider Ac tive Ravi Jayy Arguello , DO Emergency Provider Active Team Status: Inactive Member Role Status Dates Art Hope Tash , DO Emergency Provider Active Services [facility] Primary Care Provider Ac tive Team Status: Inactive Member Role Status Dates Services [facility] Primary Care Provider Ac tive Robert Henley , DO Emergency Provider Active Team Status: Inactive Member Role Status Dates Services [facility] Primary Care Provider Ac tive Art Bianchi , DO Emergency Provider Active Team Status: Inactive Member Role Status Dates Services [facility] Primary Care Provider Active Corey Newberry MD Emergency Provider Active Team Status: Active Member Role Status Dates Services [facility] Primary Care Provider Active Team Status: Inactive Member Role Status [facility] Services [facility] Primary Care Provider Active Federico Randolph , DO Emergency Provider Active Team Status: Active Member Role Status Dates Services [facility] Primary Care Provider Active Rd Brown PA-C Emergency Provider Active Eliana Bautista MD Admit Provider, Attending Provider Active Team Status: Inactive Member Role Status Dates Services [facility] Primary Care Provider Active Rd Brown PA-C Emergency Provider Active Eliana Bautista MD Admit Provider, Attending Provider Active Team Status: Inactive Member Role Status Dates Services [facility] Primary Care Provider Active Colten Miller MD Attending Provider Active Team Status: Inactive Member Role Status Dates [facility] Primary Care Provider Active Start: March 18, 2024 End: March 19, 2024 Jacinto Benitez MD Emergency Provider Active Star t: March 18, 2024 End: March 19, 2024 Team Status: Inactive Member Role Status Dates Services [facility] Primary Care Provider Active Start: August 03, 2024 End: August 04, 2024 Ania Watson MD Emergency Provider Active Start: August 03, 2024 End: August 04, 2024 Goals (unrecognized section and content) Goals may be documented in a n alternate sectionNo InformationNo InformationNo Information No data available for this section No data available for this sectionGoals may be documented in an alternate section No data available for this sectionGoals [...] BE BASED ON THE PRIMARY CLINICAL RECORDS. [facility] [facility]. provides no warranty or guarantee of the accuracy or completeness of information in this document.
[2024-10-25 11:48] LABS: Anion Gap 21.8; BUN Creatinine Ratio 25.2; Calcium 10.5 mg/dL (8.5-10.1); Carbon Dioxide 22.2 mmol/L (21.0-32.0); Chloride 99 mmol/L (98-107); Estimated GFR (African America >60 (>=60 mL/min/1.73m^2); Estimated GFR (Non-African Ame 54 (>=60 mL/min/1.73m^2); Glucose 148 mg/dL (74-106); Sodium 140 mmol/L (136-145)
[2024-10-25] MEDS: 0.9 % SODIUM CHLORIDE 1,000 ML 1000 ML IV (11:54)
[2024-10-25] MEDS: ONDANSETRON PF 4 MG/2 ML VIAL IV (11:55)
[2024-10-25 11:56] LABS: HCG Qualitative NEGATIVE (NEGATIVE); Internal Control Within Normal Limits
[2024-10-25] MEDS: KETOROLAC TROMETHAMINE 30 MG/ML VIAL IVP (11:56)
[2024-10-25] MEDS: DIPHENHYDRAMINE HCL 50 MG/ML VIAL 25 MG IV (12:03)
== END 2024-10-25 13:00 | disposition home or self-care (01) ==
PROVIDERS: Emergency Provider Emergency Medicine; PCP Nurse Practitioner Family
DX: R11.2 Nausea with vomiting, unspecified (principal); G90.A Postural orthostatic tachycardia syndrome [POTS]; F17.200 Nicotine dependence, unspecified, uncomplicated; Z90.49 Acquired absence of other specified parts of digestive tract
CPT/HCPCS: 36415; 80048; 80307; 81001; 84703; 85025; 96361; 96374; 96375; 99284; J1200; J1885; J2405

== ENCOUNTER 2024-10-26 11:11 | Emergency (ER) | payer OTHER, SELFPAY ==
--- OUTSIDE RECORDS SUMMARY | 2024-10-26 11:21 | XMS_ITS | CCD ---
Author Organization [facility] Care Team Providers Care [employer] Practitioner Name Role Phone Calvin, Mere T Unavailable [...] Unavailable Unavailable Unavailable Primary Care Provider [facility] Primary Care Provider DO Art Bianchi Emergency Provider Donovan, DO Ender J Emergency Provider [phone] Tugisselle, DO VoRavi M Emergency Provider Matthew DO Gilson Emergency Provider [phone] MILY Chand Attending Pr ovider MD Brennen Britt Attending Provider [facility] Prov ider [facility] Primary Care Provider FRANKY Rivera Emergency Provider MD Colten Fry Jr Emergency Provider DO Matthew Gilson Emergency Provider [phone] Aurelio, DO Gregorio Admit Provider Aurelio DO Gregorio Attending Provider [facility] Prov ider FRANKY Rivera Emergency Provider [phone] MD Colten Fry Jr Emergency Provider Matthew DO Gilson Emergency Provider Aurelio DO Gregorio Admit Provider Aurelio, DO Gregorio Attending Provider MILY Chand Attending Pr ovider Tugisselle, DO Rodrigues M Emergency Provider [facility] Prov ider FRANKY Rivera Emergency Provider MD Colten Fry Jr Emergency Provider DO Matthew Gilson Emergency Provider Aurelio, DO Gregorio Admit Provider Aurelio DO Gregorio Attending Provider [phone] MILY Chand Attending Pr ovider DO Ravi Arguello Emergency Provider DO Art Bianchi Emergency Provider DO Robert Henley Emergency Provider [facility] Primary Care Provider [phone] MD Corey Newberry Emergency Provider [phone] [facility] Primary Care Prov ider DO Federico Randolph Emergency Provider KATE Damian Emergency Provider MD Eliana Bautista Admit Provider MD Eliana Bautista Attending Provider SANDRO, DR VU Primary Care Unavailable DALIA ., AUSTIN Admitting Unavailable DALIA ., AUSTIN Attending Unavailable DALIA ., AUSTIN Consulting Unavailable DIAB ., IRWIN Admitting Unavailable ETHAN ., IRWIN Attending Unavailable SANDRO, DR VU Primary Care Unavailable KIA ARVIZU Consulting Unavailable ETHAN ., IRWIN Consulting Unavailable Colten Miller Unavailable [facility] Primary Care Provider MILY Chand Attending Pr ovider MD Colten Miller Attending Provider [phone] [facility] Primary Care Provider DO Ravi Arguello Emergency Provider MODESTA ARCHIBALD Primary Care Physician [facility] Primary Care Provider MD Jacinto Benitez Emergency Provider [phone] Cresencio Abel Attending Unavailable MODESTA ARCHIBALD Primary Care Unavailable MODESTA ARCHIBALD Primary Care Unavailable August Beck Attending Unavailable MODESTA ARCHIBALD Primary Care Unavailable DO Isaak Francis Attending Unavailable [facility] Primary Care Provider MD Aina Watson Emergency Provider MODESTA ARCHIBALD Primary Care Unavailable August Beck Attending Unavailable Cresencio Abel Attending Unavailable MODESTA ARCHIBALD Primary Care Unavailable August Beck Attending Unavailable Jacinto Benitez Admitting Unavailable Jacinto Benitez Attending Unavailable [facility] Primary Care Unav[facility] Primary Care Unavaila ble Ania Watson Admitting Unavailable Ania Watson Attending Unavailable Allergies Allergy Classification Reported Allergen(s) Allergy Type Date of Onset Reaction(s) Facility (11 sources) Haloperidol; Translations: [Haloperidol] Drug Allergy 3 Unknown Reaction, facial droop [facility] (13 sources) Metoclopramide; Translations: [Metoclopramide] Drug Allergy 3 Unknown (qualifier value) [facility] (3 sources) Haloperidol; Translations: [Haldol] Drug Allergy [facility] (3 sources) Iothalamate; Translations: [Reglan] Drug Allergy [facility] Medications Current Medications Medication Drug Class(es) Dates Sig (Normalized) Sig (Original) acetaminophen 325 mg / HYDROcodone bitartrate 5 mg oral tablet (20 sources) Opioid Agonist Start: 03-13-2024 End: 03-16-2024 [place] 325 mg-5 mg oral tablet 1 tab(s), Oral, q6hr for pain for 3 day(s), 7 tab(s), Refill(s) 0, [facility]/pharmacy #[id number], 160, cm, 03/13/24 17:38:00 EDT, [...] tablet by mouth every six hours Hydrocodone-Acetaminophen ([place]) 5-325 mg tablet Discontinued 1 TAB PO Q6H 6 December 15, 2019 December 31, 2019 1:37pm Start: 12-15-2019 End: 12-31-2019 Start: 04-20-2019 End: 05-05-2019 take 1 tablet by mouth every six hours Hydrocodone-Acetaminophen Discontinued 1 TAB PO Q6H 20 April 20, 2019 May 05, 2019 8:42pm Start: 04-20-2019 End: 05-05-2019 Start: 02-19-2019 End: 03-08-2019 take 1 tablet by mouth twice daily Hydrocodone-Acetaminophen ([place]) 5-325 mg tablet Discontinued 1 TAB PO [...] every 4-6 hrs for 5 days SANTO: [id number] Apr, Active take 1 tablet by kathe [...] day(s), # 9 tab(s), Refills(s) 0, Pharmacy: [facility]/pharmacy #[id number], 160, cm, 03/13/24 17:38:00 EDT, [...] pain, # 20 tab(s), Refills(s) 0, Pharmacy: [facility]/pharmacy #[id number], 160, cm, 03/13/24 17:38:00 EDT, [...] line, # 10 tab(s), Refills(s) 0, Pharmacy: [facility]/pharmacy #[id number], 157, cm, 07/30/24 19:37:00 EDT, Height/Length Dosing, 96.1, kg, 07/30/24 19:37:00 EDT, Weight Dosing Start Date: 07/30/24 Status: Ordered Start: 07-30-2024 take 12.5 mg rectal route every eight hours as needed for nausea Phenergan 12.5 mg Supp 12.5 mg = 1 supp, Rectal, q8hr, PRN as needed for nausea/vomiting, 3rd line, # 6 EA, Refills(s) 0, Pharmacy: [facility]/pharmacy #[id number], 157, cm, 07/30/24 19:37:00 EDT, Height/Length Dosing, 96.1, kg, 07/30/24 19:37:00 EDT, Weight Dosing Start Date: 07/30/24 Status: Ordered Start: 05-25-2023 take 12.5 mg by mout h three times daily Promethazine Active 12.5 MG PO Three times daily May 25, 2023 8:37am Start: 01-02-2023 Promethazine A ctive 25 MG DC Q6H January 02, 2023 1:00am Start: 12-31-2022 [...] 02-09-2022 End: 03-08-2022 Promethazine Discontinued 25 MG DC Q6H February 09, 2022 12:00am March 08, [...] End: 10-08-2021 Promethazine Discontinued 12 .5 MG DC Once September 30, 2021 12:00am October 08, [...] (Phenergan) 25 mg suppository Discontinued 25 MG DC Q4H May 10, 2019 12:00am September 03, 2019 8:25pm Start: 03-08-2019 End: 03-23-2019 take 25 mg by mouth every four to six hours Promethazine Discontinued 25 MG PO EVERY 4-6 HOURS March 08, 2019 12:00am March 23, 2019 5:49pm Start: 02-13-2018 End: 03-13-2018 Promethazine (Phenergan) 25 mg suppository Discontinued 25 MG DC Q8H February 13, 2018 12:00am March 13, 2018 10:44pm Start: 01-03-2018 End: 10-16-2018 Promethazine Discontinued 25 MG DC Q6H April 23, 2018 6:04pm October 16, [...] Nausea/Vomiting, # 16 tab(s), Refills(s) 0, Pharmacy: [facility]/pharmacy #[id number], 157, cm, 07/30/24 19:37:00 EDT, Height/Length Dosing, 96.1, kg, 07/30/24 19:37:00 EDT, Weight Dosing Start Date: 07/30/24 Status: Ordered Completed/Discontinued Medications Medication Drug Class(es) Dates Sig (Normalized) Sig (Original) [id number] 200 actuat albuterol 0.09 mg/actuat metered dose [...] / neomycin 3.5 mg/ml / polymyxin b [id number] unt/ml otic suspension (20 sources) Aminoglycoside Antibacterial, Polymyxin-class Antibacterial, Corticosteroid Start: 10-31-2017 End: 12-21-2017 Cfqzjoqp-Aogbizgra-Dn Discontinued 3 DROPS OTIC Three times daily [...] 11, 2019 1:00am January 12, 2021 1:35pm Auodwavz-Jmp-Xcyljtg Fumarate (Multi Vitamin) 9 mg iron/15 mL Liquid (14 sources) Start: 09-30-20 End: 07-19-20 21 take 1 tablet by mouth once daily Beivucjm-Mlr-Amfqbiy Fumarate (Multi Vitamin) 9 mg iron/15 mL Liquid Discontinued 1 TAB PO Daily September 29, 2019 11:00pm July 19, 2021 1:07pm Start: 09-30-2019 End: 07-19-2021 take 1 tablet by mouth once daily Bhhhqshc-Ark-Hyvkbux Fumarate (Multi Vitamin) 9 mg iron/15 mL [...] End: 03-13-2018 Oxymetazoline (Afrin (Oxymetazoline)) 0.05 % Apex,Non-Aerosol Discontinued 2 SPRAY INTRANASAL Q12H December 23, [...] take 1 tablet by mouth once daily Prenat.Vits,Noe,Pih-Crgm-Khtlx Discontin ued 1 TAB PO Daily 60 February 06, 2022 1:00am March 08, 2022 8:15pm Vit No.009-Hfll-Wrfjt ( Vitamin) 27 mg iron- 800 mcg tablet (14 sources) Start: 06-08-2022 End: 08-18-2022 take 1 tablet by mouth once daily Vit No.616-Rnzb-Saitx ( Vitamin) 27 mg iron- 800 mcg tablet Discontinued 1 TAB PO Daily June 07, 2022 11:00pm August 18, 2022 11:33am Start: 06-08-2022 End: 08-18-2022 take 1 tablet by mouth once daily Vit No.340-Ssxr-Ejzbs ( Vitamin) 27 mg iron- 800 mcg tablet Discontinued 1 TAB PO Daily June 08, 2022 12:00am August 18, 2022 12:33pm Start: 06-08-2022 take 1 tablet by kathe th once daily Vit No.842-Keoj-Rfusk ( Vitamin) 27 mg iron- 800 mcg [...] / K92.0(ICD-10) Onset: 7 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 Patients having hematocrit values >55% require a special collection tube for coagulation studies. Please contact the laboratory at [phone] for redraw instructions. BNP ser/plasOrdered By: Reji Watson on 08-03-2024 Natriuretic peptide B (Bld) [Mass/Vol] 19.0 pg/mL Normal 5-100 [facility] Comment on above: Order Comment: PT WA NTS TO WAIT UNTIL SHE IS TAKEN BACK INTO ER AND THEY START A IV ON HER,KAH, 2099 Result Comment: PERF ORMED BY: [facility] [address] [place] [address] PATHOLOGIST COMPUTER SYSTEMS CONSULTANT NAY SARKAR M.D. Performed By: #### P TT, CBC, BMP, HS TROP, CK, PT, BNP #### [address] [address] [place] Basic Metabolic Panelon 09-0 Creatinine Clr Calc Pharmacy 154.09 Normal [facility] Comment on above: Order Comment: PT WA NTS TO WAIT UNTIL SHE IS TAKEN BACK INTO ER AND THEY START A IV ON HER,2099 Result Comment: PERF ORMED BY: [place] [address] PATHOLOGIST COMPUTER SYSTEMS CONSULTANT NAY SARKAR M.D. Performed By: #### P TT, CBC, BMP, HS TROP, CK, PT, BNP #### [place] [id number] [place] GFR/1.73 sq M.predicted MDRD (S/P/Bld) [Vol rate/Area] mL/min/{1.73_m2} Normal [facility] Comment on above: Order Comment: PT WA NTS TO WAIT UNTIL SHE IS TAKEN BACK INTO ER AND THEY START A IV ON HER2099 Performed By: #### P TT, CBC, BMP, HS TROP, CK, PT, BNP #### [place] [id number] [place] Calcium [Mass/volume] in Ser um or PlasmaOrdered By: Ania Watosn on 08-03-2024 Calcium [Mass/Vol] 9.6 mg/dL Normal 8.6-10.3 [facility] Comment on above: Order Comment: PT WA NTS TO WAIT UNTIL SHE IS TAKEN BACK INTO ER AND THEY START A IV ON HER2099 Performed By: #### P TT, CBC, BMP, HS TROP, CK, PT, BNP #### [place] [id number] [place] Carbon dioxide, total [Moles /volume] in Serum or PlasmaOrdered By: Ania Watson on 08-03-2024 CO2 [Moles/Vol] 18.5 mmol/L Low 21.0-31.0 [facility] Comment on above: Order Comment: PT WA NTS TO WAIT UNTIL SHE IS TAKEN BACK INTO ER AND THEY START A IV ON HER,2099 Performed By: #### P TT, CBC, BMP, HS TROP, CK, PT, BNP #### [address] Chloride [Moles/volume] in [place] or PlasmaOrdered By: Anai Watson on 08-03-2024 Chloride [Moles/Vol] 99 mmol/L Normal 98-107 [facility] Comment on above: Order Comment: PT WA NTS TO WAIT UNTIL SHE IS TAKEN BACK INTO ER AND THEY START A IV ON HER,2099 Performed By: #### P TT, CBC, BMP, HS TROP, CK, PT, BNP #### [address] Complete Blood Count Auto Di ffon 08-03-2024 Basophils (Bld) [#/Vol] 0.1 10*3/uL Normal 0.0-0.2 [facility] Comment on above: Order Comment: PT WA NTS TO WAIT UNTIL SHE IS TAKEN BACK INTO ER AND THEY START A IV ON HER,2099 Result Comment: PERF ORMED BY: [place] [address] PATHOLOGIST COMPUTER SYSTEMS CONSULTANT NAY SARKAR M.D. Performed By: #### C BC, CMP, HCGQUAL #### [facility] [address] [place] [address] Basophils/100 WBC (Bld) 0.4 % Normal . [facility] Comment on above: Order Comment: PT WA NTS TO WAIT UNTIL SHE IS TAKEN BACK INTO ER AND THEY START A IV ON HER,2099 Performed By: #### C BC, CMP, HCGQUAL #### [place] [address] [place] Eosinophils (Bld) [#/Vol] 0.2 10*3/uL Normal 0.0-0.45 [facility] Comment on above: Order Comment: PT WA NTS TO WAIT UNTIL SHE IS TAKEN BACK INTO ER AND THEY START A IV ON HER,2099 Performed By: #### C BC, CMP, HCGQUAL #### [place] [address] [place] Eosinophils/100 WBC (Bld) 0.9 % Normal . [facility] Comment on above: Order Comment: PT WA NTS TO WAIT UNTIL SHE IS TAKEN BACK INTO ER AND THEY START A IV ON HER,, 2099 Performed By: #### C BC, CMP, HCGQUAL #### [address] Erythrocyte distribution width (RBC) [Ratio] 13.2 % Normal 11.9-15.3 [facility] Comment on above: Order Comment: PT WA NTS TO WAIT UNTIL SHE IS TAKEN BACK INTO ER AND THEY START A IV ON HER,2099 Performed By: #### C BC, CMP, HCGQUAL #### [address] Hematocrit (Bld) [Volume fraction] 43.6 % Normal 34.0-46.4 [facility] Comment on above: Order Comment: PT WA NTS TO WAIT UNTIL SHE IS TAKEN BACK INTO ER AND THEY START A IV ON HER,, 2099 Performed By: #### C BC, CMP, HCGQUAL #### [address] Hemoglobin (Bld) [Mass/Vol] 14.8 g/dL Normal 11.8-15.4 [facility] Comment on above: Order Comment: PT WA NTS TO WAIT UNTIL SHE IS TAKEN BACK INTO ER AND THEY START A IV ON HER,, 2099 Performed By: #### C BC, CMP, HCGQUAL #### [place] [address] [place] Lymphocytes (Bld) [#/Vol] 2.5 10*3/uL Normal 1.00-4.8 [facility] Comment on above: Order Comment: PT WA NTS TO WAIT UNTIL SHE IS TAKEN BACK INTO ER AND THEY START A IV ON HER,KAH, 2099 Performed By: #### C BC, CMP, HCGQUAL #### [place] [address] [place] Lymphocytes/100 WBC (Bld) 13.0 % Normal . [facility] Comment on above: Order Comment: PT WA NTS TO WAIT UNTIL SHE IS TAKEN BACK INTO ER AND THEY START A IV ON HER,, 2099 Performed By: #### C BC, CMP, HCGQUAL #### [address] MCH (RBC) [Entitic mass] 28.4 pg Normal 24.7-34.3 [facility] Comment on above: Order Comment: PT WA NTS TO WAIT UNTIL SHE IS TAKEN BACK INTO ER AND THEY START A IV ON HER,, 2099 Performed By: #### C BC, CMP, HCGQUAL #### [address] MCV (RBC) [Entitic vol] 83.8 fL Normal 80-100 [facility] Comment on above: Order Comment: PT WA NTS TO WAIT UNTIL SHE IS TAKEN BACK INTO ER AND THEY START A IV ON HER,, 2099 Performed By: #### C BC, CMP, HCGQUAL #### [address] Mean Corpuscular HGB Conc 33.9 g/dL Normal 32.0-35.0 [facility] Comment on above: Order Comment: PT WA NTS TO WAIT UNTIL SHE IS TAKEN BACK INTO ER AND THEY START A IV ON HER,, 2099 Performed By: #### C BC, CMP, HCGQUAL #### [address] Monocytes (Bld) [#/Vol] 1.6 10*3/uL High 0.0-0.8 [facility] Comment on above: Order Comment: PT WA NTS TO WAIT UNTIL SHE IS TAKEN BACK INTO ER AND THEY START A IV ON HER,, 2099 Performed By: #### C BC, CMP, HCGQUAL #### [address] Monocytes/100 WBC (Bld) 18.96 % Normal 0.00-20.00 [facility] Comment on above: Order Comment: PT WA NTS TO WAIT UNTIL SHE IS TAKEN BACK INTO ER AND THEY START A IV ON HER,, 2099 Performed By: #### C BC, CMP, HCGQUAL #### [place] [address] [place] Monocytes/100 WBC (Bld) 8.1 % Normal . [facility] Comment on above: Order Comment: PT WA NTS TO WAIT UNTIL SHE IS TAKEN BACK INTO ER AND THEY START A IV ON HER,KAH, 2100 Performed By: #### C BC, CMP, HCGQUAL #### [place] [address] [place] Neutrophils (Bld) [#/Vol] 15.0 10*3/uL High 1.8-7.7 [facility] Comment on above: Order Comment: PT WA NTS TO WAIT UNTIL SHE IS TAKEN BACK INTO ER AND THEY START A IV ON HER,, 2099 Performed By: #### C BC, CMP, HCGQUAL #### [address] Neutrophils/100 WBC (Bld) 77.6 % Normal . [facility] Comment on above: Order Comment: PT WA NTS TO WAIT UNTIL SHE IS TAKEN BACK INTO ER AND THEY START A IV ON HER,, 2099 Performed By: #### C BC, CMP, HCGQUAL #### [place] [address] [place] NRBC% 0.3 /100{WBC} Normal 0-0.5 [facility] Comment on above: Order Comment: PT WA NTS TO WAIT UNTIL SHE IS TAKEN BACK INTO ER AND THEY START A IV ON HER,, 2099 Performed By: #### C BC, CMP, HCGQUAL #### [address] Platelet mean volume (Bld) [Entitic vol] 8.6 fL Normal 6.3-10.7 [facility] Comment on above: Order Comment: PT WA NTS TO WAIT UNTIL SHE IS TAKEN BACK INTO ER AND THEY START A IV ON HER,KAH, 2099 Performed By: #### C BC, CMP, HCGQUAL #### [place] [address] [place] Platelets (Bld) [#/Vol] 282 10*3/uL Normal 150-450 [facility] Comment on above: Order Comment: PT WA NTS TO WAIT UNTIL SHE IS TAKEN BACK INTO ER AND THEY START A IV ON HER,2099 Performed By: #### C BC, CMP, HCGQUAL #### [facility] [address] RBC (Bld) [#/Vol] 5.20 10*6/uL High 3.60-5.00 [facility] Comment on above: Order Comment: PT WA NTS TO WAIT UNTIL SHE IS TAKEN BACK INTO ER AND THEY START A IV ON HER,, 2099 Performed By: #### C BC, CMP, HCGQUAL #### [address] WBC (Bld) [#/Vol] 19.4 10*3/uL High 3.8-11.6 [facility] Comment on above: Order Comment: PT WA NTS TO WAIT UNTIL SHE IS TAKEN BACK INTO ER AND THEY START A IV ON HER,, 2099 Performed By: #### C BC, CMP, HCGQUAL #### [address] Creatine kinase [Enzymatic a ctivity/volume] in Serum or PlasmaOrdered By: Ania Watson on 08-03-2024 CK [Catalytic activity/Vol] 33 U/L Normal 30-223 [facility] Comment on above: Order Comment: PT WA NTS TO WAIT UNTIL SHE IS TAKEN BACK INTO ER AND THEY START A IV ON HER,2099 Performed By: #### P TT, CBC, BMP, HS TROP, CK, PT, BNP #### [address] Creatinine [Mass/volume] in Serum or PlasmaOrdered By: Ania Watson on 08-03-2024 Creatinine [Mass/Vol] 0.61 mg/dL Normal 0.60-1.20 [facility] Comment on above: Order Comment: PT WA NTS TO WAIT UNTIL SHE IS TAKEN BACK INTO ER AND THEY START A IV ON HER,2099 Performed By: #### P TT, CBC, BMP, HS TROP, CK, PT, BNP #### [facility] [address] [place] [id number] [place] ECG 12 lead ECGon 08-03-2024 ECG 12 lead ECG [facility] [address] [place] [address] Electrocardiograph Report Signed Patient: Pili Parikh MR#: [id number] : 2005 Acct:[id number] Age/Sex: 19 / F ADM Date: 08/03/24 Loc: ER Room: Type: [facility] ER Attending Dr: Ordering Provider: Ania [...] wave abnormality Confirmed by Ania Watson MD ([id number]) on 08/04/2024 1:34:37 AM Referred By: Electronically Signed By: Ania Watson MD Transcribed By: MUS Signed By Ania Watson MD 06/20 0134 Normal [facility] Glucose [Mass/volume] in Ser um or PlasmaOrdered By: Ania Watson on 08-03-2024 Glucose [Mass/Vol] 91 mg/dL Normal 70-100 [facility] Comment on above: ADA recommended refe rence rangeRandom Glucose Reference Range is dependent on time and content of last meal. Glucose of more than 200 mg/dL in a nonstressed, ambulatory subject supports the diagnosis of Diabetes Mellitus. Order Comment: PT WA NTS TO WAIT UNTIL SHE IS TAKEN BACK INTO ER AND THEY START A IV ON HER,KAH, 2099 Result Comment: [place] om Glucose Reference Range is dependent on time and content of last meal. Glucose of more than 200 mg/dL in a nonstressed, ambulatory subject supports the diagnosis of Diabetes Mellitus. ADA recommended reference range Performed By: #### P TT, CBC, BMP, HS TROP, CK, PT, BNP #### [facility] [address] [place] [address] [place] INR in Platelet poor plasma by Coagulation assayOrdered By: Ania Watson on 08-03-2024 INR Coag (PPP) [Relative time] 1.2 {INR} Normal [facility] Comment on above: INR Therapeutic Rang [...] BMP, HS TROP, CK, PT, BNP #### [facility] [address] [place] [address] [place] No Panel InformationOrdered By: Ania Wtason on 08-03-2024 Estimated GFR (CKD-EPI) > 60.0 mL/Min [facility] Creatinine Clearance (Chem 154.09 [facility] Partial Thromboplastin Timeo n 08-03-2024 aPTT Coag (Bld) [Time] 24.7 s Low 25.1-36.5 [facility] Comment on above: Order Comment: PT WA NTS TO WAIT UNTIL SHE IS TAKEN BACK INTO ER AND THEY START A IV ON HER,, 2099 Result Comment: A he matocrit value greater than 55% may lead to inaccurate results in coagulation testing. Patients having hematocrit values >55% require a special collection tube for coagulation studies. Please contact the laboratory at [phone] for redraw instructions. PERFORMED BY: [facility] [address] [place] [address] PATHOLOGIST COMPUTER SYSTEMS CONSULTANT NAY SARKAR M.D. Performed By: #### P TT, CBC, BMP, HS TROP, CK, PT, BNP #### [facility] [address] Potassium [Moles/volume] in Serum or PlasmaOrdered By: Ania Watson on 08-03-2024 Potassium [Moles/Vol] 3.5 mmol/L Normal 3.5-5.1 [facility] Comment on above: Hemolysis is present at [...] BMP, HS TROP, CK, PT, BNP #### [facility] [address] Prothrombin time (PT)Ordered By: Ania Watson on 08-03-2024 PT Coag (PPP) [Time] 13.3 s High 9.0-12.9 [facility] Comment on above: A hematocrit value g reater than 55% may lead to inaccurate results in coagulation testing. Patients having hematocrit values >55% require a special collection tube for coagulation studies. Please contact the laboratory at [phone] for redraw instructions. Order Comment: PT WA NTS TO WAIT UNTIL SHE IS TAKEN BACK INTO ER AND THEY START A IV ON HER,2099 Result Comment: A he matocrit value greater than 55% may lead to inaccurate results in coagulation testing. Patients having hematocrit values >55% require a special collection tube for coagulation studies. Please contact the laboratory at [phone] for redraw instructions. Performed By: #### P TT, CBC, BMP, HS TROP, CK, PT, BNP #### [facility] [address] Serum or plasma anion gap de terminationOrdered By: Ania Watson on 08-03-2024 Anion gap [Moles/Vol] 20.0 mmol/L High 6.0-15.0 [facility] Comment on above: Order Comment: PT WA NTS TO WAIT UNTIL SHE IS TAKEN BACK INTO ER AND THEY START A IV ON HER2099 Performed By: #### P TT, CBC, BMP, HS TROP, CK, PT, BNP #### [facility] [address] [place] [address] [place] Sodium [Moles/volume] in Ser um or PlasmaOrdered By: Ania Watson on 08-03-2024 Sodium [Moles/Vol] 134 mmol/L Low 136-145 [facility] Comment on above: Order Comment: PT WA NTS TO WAIT UNTIL SHE IS TAKEN BACK INTO ER AND THEY START A IV ON HER2099 Performed By: #### P TT, CBC, BMP, HS TROP, CK, PT, BNP #### [facility] [address] [place] [address] [place] Troponin I High Sensitivityo n 08-03-2024 Troponin I High Sensitivity 7.0 pg/mL Normal 0.0-15.0 [facility] Comment on above: Order Comment: PT WA NTS TO WAIT UNTIL SHE IS TAKEN BACK INTO ER AND THEY START A IV ON HER2099 Result Comment: PERF ORMED BY: [place] [address] PATHOLOGIST COMPUTER SYSTEMS CONSULTANT NAY SARKAR M.D. Performed By: #### P TT, CBC, BMP, HS TROP, CK, PT, BNP #### [facility] [facility] [address] Troponin I.cardiac [Mass/vol ume] in Serum or Plasma by Detection limit <= 0.01 ng/Ordered By: Ania Watson on 08-03-2024 Troponin I.cardiac DL <= 0.01 ng/mL [Mass/Vol] 7.0 pg/mL 0.0-15.0 [facility] Urea nitrogen [Mass/volume] in Serum or PlasmaOrdered By: Ania Watson on 08-03-2024 Urea nitrogen [Mass/Vol] 20 mg/dL Normal 7-25 [facility] Comment on above: Order Comment: PT WA NTS TO WAIT UNTIL SHE IS TAKEN BACK INTO ER AND THEY START A IV ON HER2099 Performed By: #### P TT, CBC, BMP, HS TROP, CK, PT, BNP #### [facility] [address] [place] [id number] RUST B hCG Qualon 08-01-2024 Beta HCG ( test) Ql Negative Normal [facility] Comment on above: Performed By: #### 2 [id number] #### [facility] [address] [place] [address] BMPon 08-01-2024 Anion gap [Moles/Vol] 14 mmol/L Normal 6-16 [facility] Comment on above: Performed By: #### 2 760736 #### [facility] [address] [place] [address] Calcium [Mass/Vol] 9.7 mg/dL Normal 8.9-11.1 [facility] Comment on above: Performed By: #### 2 [id number] #### [facility] [address] [place] [address] Chloride [Moles/Vol] 102 mmol/L Normal 101-111 [facility] Comment on above: Performed By: #### 2 614457 #### [facility] [address] [place] [address] CO2 [Moles/Vol] 24 mmol/L Normal 21-31 [facility] Comment on above: Performed By: #### 2 561822 #### [facility] [address] [place] [address] Creatinine [Mass/Vol] 0.7 mg/dL Normal 0.5-1.3 [facility] Comment on above: Performed By: #### 2 386627 #### [facility] [address] [place] [address] Glucose [Mass/Vol] 96 mg/dL Normal 55-199 [facility] Comment on above: Performed By: #### 2 387007 #### [facility] [address] [place] [address] Potassium [Moles/Vol] 3.3 mmol/L Low 3.5-5.3 [facility] Comment on above: Performed By: #### 2 155837 #### [facility] [address] [place] [address] Sodium [Moles/Vol] 137 mmol/L Normal 135-145 [facility] Comment on above: Performed By: #### 2 610705 #### [facility] [address] [place] [address] Urea nitrogen [Mass/Vol] 18 mg/dL Normal 5-21 [facility] Comment on above: Performed By: #### 2 127793 #### [facility] [address] [place] [address] Urea nitrogen/Creatinine [Mass ratio] 26 No Units High 10-20 [facility] Comment on above: Performed By: #### 2 249460 #### [facility] [address] [place] [address] CBC w/ Auto Diffon 4 Basophils/100 WBC (Bld) 0.3 % Normal 0.0-2.0 [facility] Comment on above: Performed By: #### 2 052642 #### [facility] [address] [place] [address] Basophils/Leukocytes Auto (Bld) [Pure # fraction] 0.1 E9/L Normal 0.0-0.2 [facility] Comment on above: Performed By: #### 2 218787 #### [facility] [address] [place] [address] Eosinophils (Bld) [#/Vol] 0.1 E9/L Normal 0.0-0.5 [facility] Comment on above: Performed By: #### 2 910163 #### [facility] [address] [place] [address] Eosinophils/100 WBC (Bld) 0.4 % Normal 0.0-8.0 [facility] Comment on above: Performed By: #### 2 828007 #### [facility] [address] [place] [address] Erythrocyte distribution width (RBC) [Ratio] 13.3 % Normal 10.9-14.2 [facility] Comment on above: Performed By: #### 2 889827 #### [facility] [address] [place] [address] Hematocrit (Bld) [Volume fraction] 43.9 % Normal 34.0-46.0 [facility] Comment on above: Performed By: #### 2 157217 #### [facility] [address] [place] [address] Hemoglobin (Bld) [Mass/Vol] 14.5 g/dL Normal 12.0-16.0 [facility] Comment on above: Performed By: #### 2 249007 #### [facility] [address] [place] [address] Lymphocytes (Bld) [#/Vol] 2.3 E9/L Normal 1.0-4.0 [facility] Comment on above: Performed By: #### 2 142646 #### [facility] [address] [place] [address] Lymphocytes/100 WBC (Bld) 13.7 % Low 14.0-50.0 [facility] Comment on above: Performed By: #### 2 585148 #### [facility] [address] [place] [address] MCH (RBC) [Entitic mass] 28.3 pg Normal 27.0-34.0 [facility] Comment on above: Performed By: #### 2 423846 #### [facility] [address] [place] [address] MCHC (RBC) [Mass/Vol] 33.0 g/dL Normal 31.4-36.0 [facility] Comment on above: Performed By: #### 2 022990 #### [facility] [address] [place] [address] MCV (RBC) [Entitic vol] 85.8 fL Normal 80.0-100.0 [facility] Comment on above: Performed By: #### 2 306329 #### [facility] [address] [place] [address] Monocytes (Bld) [#/Vol] 1.2 E9/L High 0.2-1.0 [facility] Comment on above: Performed By: #### 2 386485 #### [facility] [address] [place] [address] Neutrophils (Bld) [#/Vol] 13.1 E9/L High 2.0-7.5 [facility] Comment on above: Performed By: #### 2 856439 #### [facility] [address] [place] [address] Neutrophils/100 WBC (Bld) 78.5 % High 36.0-75.0 [facility] Comment on above: Performed By: #### 2 945738 #### [facility] [address] [place] [address] Platelet mean volume (Bld) [Entitic vol] 8.2 fL Normal 6.4-10.8 [facility] Comment on above: Performed By: #### 2 546972 #### [facility] [address] [place] [address] Platelets (Bld) [#/Vol] 246.0 E9/L Normal 150.0-500. 0 [facility] Comment on above: Performed By: #### 2 611077 #### [facility] [address] [place] [address] RBC (Bld) [#/Vol] 5.1 E12/L Normal 4.3-5.9 [facility] Comment on above: Performed By: #### 2 166830 #### [facility] [address] [place] [address] WBC corrected for nucl RBC Auto (Bld) [#/Vol] 16.7 E9/L High 4.0-11.0 [facility] Comment on above: Result Comment: Sarahi pheral smear review performed. Performed By: #### 2 588662 #### [facility] [address] [place] [address] ED Clinical Summaryon 2023 ED Clinical Summary ED Clinical Summary [address] [address] ED Clinical Summary Person Information Name: PILI PARIKH/[place] Age: 19 Years : 2005 Sex: Female Language: Micronesian PCP: MODESTA CHAND CNP Marital Status: Single [...] 12:09:48 08/01/2024 12:09:48 08/01/2024 12:09:48 ADDRESS: [address] [facility] [id number] PHYS DOC NOTES: MEDICAL INFORMATION: Prescriptions Given: New Medications [id number], [address], [place] [id number], [phone] potassium chloride (potassium chloride 20 mEq ER [...] Follow up: With: Address: When: MODESTA CHAND [address] [place] [address] [phone] ilab (1) In 3 days 08/04/2024 Comments: Make sure to fill the prescriptions that was prescribed from [facility]. Fill the new prescription for potassium. Follow-up with your primary doctor as discussed. Return to the emergency room if your vomiting recurs, abdominal pain recurs or any new symptoms. DIAGNOSIS: 1:Vomiting and diarrhea; 2:Hypokalemia; 3:Leukocytosis; Diarrhea, unspecified Normal [facility] ED Note-Physicianon 08-01-20 ED Note-Physician ED Note-Physician Basic Information Time Seen: August Beck M.D. 08/01/2024 09:27 Chief Complaint just left [place] [facility], seen multiple times for n/v lightheaded. hx cyclic vomiting, state its not that. has medication at [facility] but wanted to come here instead for [...] any sick contact. The patient was at [facility] and they did send medication to [facility] however she feels she is dehydrated. The [...] instructed to fill the prescription given by [facility] and filled a new prescription for potassium. [...] day(s), # 4 tab(s), Refills(s) 0, Pharmacy: [facility]/pharmacy #[id number], 157, cm, 08/01/24 9:34:00 EDT, Height/Length [...] 20 mg, IntraMuscular famotidine 10 mg/mL IV Lias, 20 mg, IV Push NS 1000 ml Bolus, 2000 mL, IV ondansetron 4 mg/2 mL Inj, 4 mg, IV Push Disposition Plan Patient Discharge Condition Stable, improved Discharge Disposition Dis (more content not included)... Normal [facility] Comment on above: Result Comment: Elec tronically Signed By: Ebony Birmingham, August Carbone\.br\Date and Time Signed: 08/01/24 11:58 EDT ED Patient Summaryon 024 ED Patient Summary ED Patient Summary [place] [id number] Patient Discharge Instructions Person Information Name: PILI PARIKH Age: 19 Years Arrival Date: 08/01/2024 09:23:00 Discharge Diagnosis: 1:Vomiting and diarrhea; 2:Hypokalemia; 3:Leukocytosis; Diarrhea, unspecified Primary Care Physician: MODESTA CHAND CNP Provider Information Primary Provider: August Beck M.D. Advanced Buckle Sorter:None The exam and treatment you received in the Emergency Department were for an urgent problem and are not intended as complete care. It is important that you follow up with a doctor, nurse practitioner, or physician?s underwriting assistant for ongoing care. If your symptoms [...] Follow-up Instructions: With: Address: When: MODESTA CHAND [facility] [address] [place] [phone] Business (1) In 3 days 08/04/2024 Comments: Make sure to fill the prescriptions that was prescribed from [facility]. Fill the new prescription for potassium. Follow-up [...] opioids can be used to help relieve [id number] pain and are often prescribed following a [...] the to (more content not included)... Normal [facility] Hep Func Panelon 08-01-2024 Albumin [Mass/Vol] 5.1 g/dL High 3.3-5.0 [facility] Comment on above: Performed By: #### 2 883403 #### [facility] [address] [place] [address] Albumin/Globulin (S) [Mass conc ratio] 1.7 Normal 1.1-2.2 [facility] Comment on above: Performed By: #### 2 611956 #### [facility] [address] [place] [address] ALP [Catalytic activity/Vol] 75 Int._Unit/L Normal 21-98 [facility] Comment on above: Performed By: #### 2 125277 #### [facility] [address] [place] [address] ALT No additional P-5'-P [Catalytic activity/Vol] 45 Int._Unit/L Normal 6-46 [facility] Comment on above: Performed By: #### 2 949006 #### [facility] [address] [place] [address] AST [Catalytic activity/Vol] 25 Int._Unit/L Normal 5-43 [facility] Comment on above: Performed By: #### 2 077204 #### [facility] [address] [place] [address] Bilirubin [Mass/Vol] 0.9 mg/dL Normal 0.0-1.1 [facility] Comment on above: Performed By: #### 2 899072 #### [facility] [address] [place] [address] Bilirubin.direct [Mass/Vol] 0.1 mg/dL Normal 0.0-0.4 [facility] Comment on above: Performed By: #### 2 562709 #### [facility] [address] [place] [address] Bilirubin.indirect [Mass or moles/Vol] 0.8 mg/dL Normal 0.1-0.9 [facility] Comment on above: Performed By: #### 2 977393 #### [facility] [address] [place] [address] Globulin (S) [Mass/Vol] 3.0 g/dL Normal 1.4-4.0 [facility] Comment on above: Performed By: #### 2 291458 #### [facility] [address] [place] [address] Protein [Mass/Vol] 8.1 g/dL High 6.0-7.8 [facility] Comment on above: Performed By: #### 2 406359 #### [facility] [address] [place] [address] Lipase Levelon 08-01-2024 Lipase [Catalytic activity/Vol] 27 U/L Normal 13-58 [facility] Comment on above: Performed By: #### 2 568386 #### [facility] [address] [place] [address] Magnesiumon 08-01-2024 Magnesium [Mass/Vol] 2.2 mg/dL Normal 1.3-2.4 [facility] Comment on above: Performed By: #### 2 108075 #### [facility] [address] [place] [address] PT & PTTon 08-01-2024 aPTT Coag (PPP) [Time] 31.2 second(s) Normal 25.1-36.5 [facility] Comment on above: Result Comment: Para meter [...] the same coagulation reagent and instrumentation as [facility]. Currently there are no coagulation studies available worldwide for children to 14 days, and no normal ranges. Heparin therapeutic range (represented by Anti-Factor Xa activity of 0.2 - 0.4 U/mL) corresponds to PTT of 56.6 - 109.0 sec. Performed By: #### 1 [id number] #### [facility] [address] [place] [address] INR Coag (PPP) [Relative time] 1.11 {INR} Invalid Interpretation Code [facility] Comment on above: Result Comment: INR results are specifically intended to assess patients stabilized on long-term Anticoagulation therapy suggested INR?s ?Less Intensive Anticoagulation? 2.0 ? 3.0 Conventional Range 3.0 ? 4.5 Performed By: #### 1 [id number] #### [facility] [address] [place] [address] PT Coag (PPP) [Time] 12.5 second(s) Normal 9.4-12.5 [facility] Comment on above: Result Comment: 15 d [...] the same coagulation reagent and instrumentation as [facility]. Currently there are no coagulation studies available worldwide for children to 14 days, and no normal ranges. Performed By: #### 1 [id number] #### [facility] [address] [place] [address] Troponin 0 Hr.on 08-01-2024 Troponin HS 5.20 pg/mL Low 10.10-27.1 0 [facility] Comment on above: Result Comment: The 95% CI (Confidence Interval) PPV (Positive Predictive Value) for myocardial infarction in females is 38 pg/mL, in males 51 pg/mL. The results should be used in conjunction with clinical conditions of myocardial infarction. (Access High Sensitivity Troponin I Instructions For Use, Sugar Sundar, June 2018) Performed By: #### 1 [id number] #### [facility] [address] [place] [address] eGFRon 08-01-2024 eGFR 126 mL/min/1.73 m2 Normal >=59 [facility] Comment on above: Order Comment: Order added by Discern Expert. Performed By: #### 1 [id number] #### [facility] [address] [place] [address] BMPon 07-30-2024 Anion gap [Moles/Vol] 13 mmol/L Normal 6-16 [facility] Comment on above: Performed By: #### 2 900080 #### [facility] [address] [place] [address] Calcium [Mass/Vol] 9.4 mg/dL Normal 8.9-11.1 [facility] Comment on above: Performed By: #### 2 315408 #### [facility] [address] [place] [address] Chloride [Moles/Vol] 107 mmol/L Normal 101-111 [facility] Comment on above: Performed By: #### 2 502138 #### [facility] [address] [place] [address] CO2 [Moles/Vol] 25 mmol/L Normal 21-31 [facility] Comment on above: Performed By: #### 2 572010 #### [facility] [address] [place] [address] Creatinine [Mass/Vol] 0.8 mg/dL Normal 0.5-1.3 [facility] Comment on above: Performed By: #### 2 926121 #### [facility] [address] [place] [address] Glucose [Mass/Vol] 89 mg/dL Normal 55-199 [facility] Comment on above: Performed By: #### 2 059338 #### [facility] [address] [place] [address] Potassium [Moles/Vol] 3.6 mmol/L Normal 3.5-5.3 [facility] Comment on above: Performed By: #### 2 731385 #### [facility] [address] [place] [address] Sodium [Moles/Vol] 141 mmol/L Normal 135-145 [facility] Comment on above: Performed By: #### 2 389392 #### [facility] [address] [place] [address] Urea nitrogen [Mass/Vol] 19 mg/dL Normal 5-21 [facility] Comment on above: Performed By: #### 2 881347 #### [facility] [address] [place] [address] Urea nitrogen/Creatinine [Mass ratio] 24 No Units High 10-20 [facility] Comment on above: Performed By: #### 2 533178 #### [facility] [address] [place] [address] CBC w/ Auto Diffon 4 Basophils/100 WBC (Bld) 0.4 % Normal 0.0-2.0 [facility] Comment on above: Performed By: #### 2 766368 #### [facility] [address] [place] [address] Basophils/Leukocytes Auto (Bld) [Pure # fraction] 0.1 E9/L Normal 0.0-0.2 [facility] Comment on above: Performed By: #### 2 304667 #### [facility] [address] [place] [address] Eosinophils (Bld) [#/Vol] 0.1 E9/L Normal 0.0-0.5 [facility] Comment on above: Performed By: #### 2 766864 #### [facility] [address] [place] [address] Eosinophils/100 WBC (Bld) 0.5 % Normal 0.0-8.0 [facility] Comment on above: Performed By: #### 2 774690 #### [facility] [address] [place] [address] Erythrocyte distribution width (RBC) [Ratio] 13.2 % Normal 10.9-14.2 [facility] Comment on above: Performed By: #### 2 691065 #### [facility] [address] [place] [address] Hematocrit (Bld) [Volume fraction] 39.6 % Normal 34.0-46.0 [facility] Comment on above: Performed By: #### 2 839620 #### [facility] [address] [place] [address] Hemoglobin (Bld) [Mass/Vol] 13.7 g/dL Normal 12.0-16.0 [facility] Comment on above: Performed By: #### 2 940436 #### [facility] [address] [place] [address] Lymphocytes (Bld) [#/Vol] 2.3 E9/L Normal 1.0-4.0 [facility] Comment on above: Performed By: #### 2 321000 #### [facility] [address] [place] [address] Lymphocytes/100 WBC (Bld) 14.1 % Normal 14.0-50.0 [facility] Comment on above: Performed By: #### 2 902551 #### [facility] [address] [place] [address] MCH (RBC) [Entitic mass] 29.4 pg Normal 27.0-34.0 [facility] Comment on above: Performed By: #### 2 441699 #### [facility] [address] [place] [address] MCHC (RBC) [Mass/Vol] 34.5 g/dL Normal 31.4-36.0 [facility] Comment on above: Performed By: #### 2 088011 #### [facility] [address] [place] [address] MCV (RBC) [Entitic vol] 85.3 fL Normal 80.0-100.0 [facility] Comment on above: Performed By: #### 2 201549 #### [facility] [address] [place] [address] Monocytes (Bld) [#/Vol] 1.2 E9/L High 0.2-1.0 [facility] Comment on above: Performed By: #### 2 475327 #### [facility] [address] [place] [address] Neutrophils (Bld) [#/Vol] 12.6 E9/L High 2.0-7.5 [facility] Comment on above: Performed By: #### 2 793070 #### [facility] [address] [place] [address] Neutrophils/100 WBC (Bld) 77.5 % High 36.0-75.0 [facility] Comment on above: Performed By: #### 2 155637 #### [facility] [address] [place] [address] Platelet 260.0 E9/L Normal 150.0-500. 0 [facility] Comment on above: Performed By: #### 2 362394 #### [facility] [address] [place] [address] Platelet mean volume (Bld) [Entitic vol] 8.1 fL Normal 6.4-10.8 [facility] Comment on above: Performed By: #### 2 710859 #### [facility] [address] [place] [address] RBC (Bld) [#/Vol] 4.7 E12/L Normal 4.3-5.9 [facility] Comment on above: Performed By: #### 2 549537 #### [facility] [address] [place] [address] WBC corrected for nucl RBC Auto (Bld) [#/Vol] 16.2 E9/L High 4.0-11.0 [facility] Comment on above: Performed By: #### 2 664036 #### [facility] [address] [place] [address] CHEMISTRYOrdered By: Manish carpio on 07-30-2024 Albumin [...] 2023 ED Clinical Summary ED Clinical Summary [place] [address] ED Clinical Summary Person Information Name: PILI PARIKH/[facility] Age: 19 Years : 2005 Sex: Female Language: Micronesian PCP: MODESTA ARCHIBALD Marital Status: Single Visit [...] 07/30/2024 22:55:49 07/30/2024 22:55:49 07/30/2024 22:55:49 ADDRESS: [address] [place] [id number] PHYS DOC NOTES: MEDICAL INFORMATION: Prescriptions Given: New Medications [facility] #[id number], [address], [place] [id number], [phone] ondansetron (Zofran ODT 4 mg Tab-Dis) 1 Tablets By Mouth every 8 hours as needed Nausea/Vomiting. Refills: 0. Medications to Continue Taking That Have Changed [facility]/pharmacy #6177, [address], [place] [id number], [phone] START: promethazine (Phenergan 12.5 mg Supp) 1 [...] Follow up: With: Address: When: FAMILIA ESTRADA, [address] [address] Business (1) In 3 days 08/02/2024 DIAGNOSIS: AP (abdominal pain); N&V (nausea and vomiting) Normal [facility] ED Note-Physicianon 07-30-20 ED Note-Physician ED Note-Physician [...] Nausea/Vomiting, # 16 tab(s), Refills(s) 0, Pharmacy: [facility]/pharmacy #[id number], 157, cm, 07/30/24 19:37:00 EDT, Height/Length Dosing, 96.1, kg, 07/30/24 19:37:00 EDT, Weight Dosing promethazine, 12.5 mg = 1 tab(s), Oral, q8hr, PRN as needed for nausea/vomiting, second line, # 10 tab(s), Refills(s) 0, Pharmacy: [facility]/pharmacy #[id number], 157, cm, 07/30/24 19:37:00 EDT, Height/Length Dosing, 96.1, kg, 07/30/24 19:37:00 EDT, Weight Dosing promethazine, 12.5 mg = 1 supp, Rectal, q8hr, PRN as needed for nausea/vomiting, 3rd line, # 6 EA, Refills(s) 0, Pharmacy: [facility]/pharmacy #[id number], 157, cm, 07/30/24 19:37:00 EDT, Height/Length [...] Level Saline Lock Insert Medications Administered Given [id number] [F] 1000 mg + GenDil 100 mL, IV Piggyback famotidine 10 mg/mL IV Lisa, 20 mg, IV Push NS 1000 ml Bolus, 1000 mL, IV [id number] [F] 12.5 mg + Sodium Chloride 0.9% IV Lisa 50 mL [F] 50 mL, IV Piggyback Disposition Plan Discharge Prescription List Prescriptions Phenergan 12.5 mg Supp, 12.5 mg= 1 supp, Rectal, q8hr, PRN promethazine 12.5 mg oral tablet, 12.5 mg= 1 tab(s), Oral, q8hr, PRN Zofran ODT 4 mg Tab-Dis, 4 mg= 1 tab(s), Or (more content not included)... Normal [facility] Comment on above: Result Comment: Elec tronically Signed By: Dustin Villalobos DO\.br\Date and Time Signed: 07/30/24 22:50 EDT ED Patient Summaryon 024 ED Patient Summary ED Patient Summary [address] [address] Patient Discharge Instructions Person Information Name: PILI PARIKH Age: 19 Years Arrival Date: 07/30/2024 19:26:13 Discharge Diagnosis: AP (abdominal pain); N&V (nausea and vomiting) Primary Care Physician: MODESTA ARCHIBALD Provider Information Primary Provider: Dustin Villalobos DO Advanced Buckle Sorter:None The exam and treatment you received in the Emergency Department were for an urgent problem and are not intended as complete care. It is important that you follow up with a doctor, nurse practitioner, or physician?s underwriting assistant for ongoing care. If your symptoms [...] Follow-up Instructions: With: Address: When: FAMILIA CHAND [facility] [address] [address] Business (1) In 3 days 08/02/2024 In the event that this physician does not participate in your insurance network, please consult with your insurance company to find a nearby participating provider. Patient Education Materials: Nausea and Vomiting, Adult A MESSAGE TO ALL PATIENTS REGARDING OPIOIDS PRESCRIPTION OPIOIDS: WHAT YOU NEED TO KNOW Prescription opioids can be used to help relieve qarskkui-dh-mwntkq pain and are often prescribed following a [...] be struggling with addiction, tell your health critical care clinical nurse specialist and ask for guidance or [facility] National Helplin (more content not included)... Normal [facility] HEMATOLOGYOrdered By: SYSTEM SYSTEM on 07-30-2024 Basophils/100 [...] 07-30-2024 Albumin [Mass/Vol] 4.7 g/dL Normal 3.3-5.0 [facility] Comment on above: Performed By: #### 2 [id number] #### [facility] [address] [place] [address] Albumin/Globulin (S) [Mass conc ratio] 1.7 Normal 1.1-2.2 [facility] Comment on above: Performed By: #### 2 524672 #### [facility] [address] [place] [address] ALP [Catalytic activity/Vol] 73 Int._Unit/L Normal 21-98 [facility] Comment on above: Performed By: #### 2 354188 #### [facility] [address] [place] [address] ALT No additional P-5'-P [Catalytic activity/Vol] 46 Int._Unit/L Normal 6-46 [facility] Comment on above: Performed By: #### 2 [id number] #### [facility] [address] [place] [address] AST [Catalytic activity/Vol] 24 Int._Unit/L Normal 5-43 [facility] Comment on above: Performed By: #### 2 899741 #### [facility] [address] [place] [address] Bilirubin [Mass/Vol] 0.7 mg/dL Normal 0.0-1.1 [facility] Comment on above: Performed By: #### 2 730039 #### [facility] [address] [place] [address] Bilirubin.direct [Mass/Vol] 0.1 mg/dL Normal 0.0-0.4 [facility] Comment on above: Performed By: #### 2 159314 #### [facility] [address] [place] [address] Bilirubin.indirect [Mass or moles/Vol] 0.6 mg/dL Normal 0.1-0.9 [facility] Comment on above: Performed By: #### 2 382833 #### [facility] [address] [place] [address] Globulin (S) [Mass/Vol] 2.8 g/dL Normal 1.4-4.0 [facility] Comment on above: Performed By: #### 2 118545 #### [facility] [address] [place] [address] Protein [Mass/Vol] 7.5 g/dL Normal 6.0-7.8 [facility] Comment on above: Performed By: #### 2 131974 #### [facility] [address] [place] [address] Lipase Levelon 07-30-2024 Lipase [Catalytic activity/Vol] 10 U/L Low 13-58 [facility] Comment on above: Performed By: #### 2 232768 #### [facility] [address] [place] [address] Magnesiumon 07-30-2024 Magnesium [Mass/Vol] 2.2 mg/dL Normal 1.3-2.4 [facility] Comment on above: Performed By: #### 2 559110 #### [facility] [address] [place] [address] eGFRon 07-30-2024 eGFR 108 mL/min/1.73 m2 Normal >=59 [facility] Comment on above: Order Comment: Order added by Discern Expert. Performed By: #### 1 [id number] #### [facility] [address] [place] [address] Alanine aminotransferase [En zymatic activity/volume] in Serum or PlasmaOrdered By: Jacinto Benitez on 03-18-2024 ALT [Catalytic activity/Vol] 25 U/L Normal 7-52 [facility] Comment on above: Performed By: #### C BC, CMP, HCGQUAL #### [address] Albumin [Mass/volume] in Ser um or Plasma by Bromocresol green (BCG) dye binding methoOrdered By: Jacinto Benitez on 03-18-2024 Albumin BCG dye [Mass/Vol] 5.3 g/dL 3.5-5.7 [facility] Alkaline phosphatase [Enzyma tic activity/volume] in Serum or PlasmaOrdered By: Jacinto Benitez on 03-18-2024 ALP [Catalytic activity/Vol] 82 U/L Normal 34-104 [facility] Comment on above: Performed By: #### C BC, CMP, HCGQUAL #### [address] Aspartate aminotransferase [ Enzymatic activity/volume] in Serum or PlasmaOrdered By: Jacinto Benitez on 03-18-2024 AST [Catalytic activity/Vol] 23 U/L Normal 13-39 [facility] Comment on above: Performed By: #### C BC, CMP, HCGQUAL #### [address] Automated basophil %Ordered By: Jacinto Benitez on 03-18-2024 Basophils/100 WBC (Bld) 0.4 % Normal . [facility] Comment on above: Performed By: #### C BC, CMP, HCGQUAL #### [address] Automated basophil countOrde red By: Jacinto Benitez on 03-18-2024 Basophils (Bld) [#/Vol] 0.1 10*3/uL Normal 0.0-0.2 [facility] Comment on above: Result Comment: PERF ORMED BY: [place] [address] PATHOLOGIST COMPUTER SYSTEMS CONSULTANT NAY SARKAR M.D. Performed By: #### C BC, CMP, HCGQUAL #### [address] Automated blood monocyte cou ntOrdered By: Jacinto Benitez on 03-18-2024 Monocytes (Bld) [#/Vol] 1.4 10*3/uL High 0.0-0.8 [facility] Comment on above: Performed By: #### C BC, CMP, HCGQUAL #### [address] Automated eosinophil %Ordere d By: Jacinto Benitez on 03-18-2024 Eosinophils/100 WBC (Bld) 2.3 % Normal . [facility] Comment on above: Performed By: #### C BC, CMP, HCGQUAL #### [address] Automated eosinophil countOr dered By: Jacinto Benitez on 03-18-2024 Eosinophils (Bld) [#/Vol] 0.4 10*3/uL Normal 0.0-0.45 [facility] Comment on above: Performed By: #### C BC, CMP, HCGQUAL #### [address] Automated monocyte %Ordered By: aJcinto Benitez on 03-18-2024 Monocytes/100 WBC (Bld) 7.6 % Normal . [facility] Comment on above: Performed By: #### C BC, CMP, HCGQUAL #### [address] Automated neutrophil %Ordere d By: Jacinto Benitez on 03-18-2024 Neutrophils/100 WBC (Bld) 68.8 % Normal . [facility] Comment on above: Performed By: #### C BC, CMP, HCGQUAL #### [address] Bilirubin.total [Mass/volume ] in Serum or PlasmaOrdered By: Jacinto Benitez on 03-18-2024 Bilirubin [Mass/Vol] 0.9 mg/dL Normal 0.3-1.0 [facility] Comment on above: Performed By: #### C BC, CMP, HCGQUAL #### [address] Calcium [Mass/volume] in Ser um or PlasmaOrdered By: Jacinto Benitez on 03-18-2024 Calcium [Mass/Vol] 10.4 mg/dL High 8.6-10.3 [facility] Comment on above: Performed By: #### C BC, CMP, HCGQUAL #### [address] Carbon dioxide, total [Moles /volume] in Serum or PlasmaOrdered By: Jacinto Benitez on 03-18-2024 CO2 [Moles/Vol] 18.4 mmol/L Low 21.0-31.0 [facility] Comment on above: Performed By: #### C BC, CMP, HCGQUAL #### [address] Chloride [Moles/volume] in S [place] or PlasmaOrdered By: Jacinto Benitez on 03-18-2024 Chloride [Moles/Vol] 94 mmol/L Low 98-107 [facility] Comment on above: Performed By: #### C BC, CMP, HCGQUAL #### [address] Choriogonadotropin.beta subu nit [Units/volume] in Serum or PlasmaOrdered By: Jacinto Benitez on 03-18-2024 HCG.beta subunit Qn Negative [facility] Complete Blood Count Auto Di ffon 03-18-2024 Mean Corpuscular HGB Conc 33.9 g/dL Normal 32.0-35.0 [facility] Comment on above: Performed By: #### C BC, CMP, HCGQUAL #### [place] [address] [place] Monocytes/100 WBC (Bld) 16.34 % Normal 0.00-20.00 [facility] Comment on above: Performed By: #### C BC, CMP, HCGQUAL #### [address] NRBC% 0.1 /100{WBC} Normal 0-0.5 [facility] Comment on above: Performed By: #### C BC, CMP, HCGQUAL #### [address] [place] [address] [place] Comprehensive Metabolic Pane tushar 03-18-2024 Albumin [Mass/Vol] 5.3 g/dL Normal 3.5-5.7 [facility] Comment on above: Performed By: #### C BC, CMP, HCGQUAL #### [address] Anion gap [Moles/Vol] Not performed Normal 6.0-15.0 [facility] Comment on above: Performed By: #### C BC, CMP, HCGQUAL #### [address] Creatinine Clr Calc Pharmacy 120.98 Normal [facility] Comment on above: Performed By: #### C BC, CMP, HCGQUAL #### [address] GFR/1.73 sq M.predicted MDRD (S/P/Bld) [Vol rate/Area] mL/min/{1.73_m2} Normal [facility] Comment on above: Performed By: #### C BC, CMP, HCGQUAL #### [address] Potassium Normal 3.5-5.1 [facility] Comment on above: Result Comment: Spec imen hemolyzed, redraw requested Results called at 2349 on 03/18/24 Performed By: #### C BC, CMP, HCGQUAL #### [place] [address] [place] Creatinine [Mass/volume] in Serum or PlasmaOrdered By: Jacinto Benitez on 03-18-2024 Creatinine [Mass/Vol] 0.80 mg/dL Normal 0.60-1.20 [facility] Comment on above: Performed By: #### C BC, CMP, HCGQUAL #### [place] [address] [place] ECG 12 lead ECGon 03-18-2024 ECG 12 lead ECG [facility] Main [address] [place] [address] Electrocardiograph Report Signed Patient: Pili Parikh MR#: [id number] : 2005 Acct:[id number] Age/Sex: 19 / F ADM Date: 03/18/24 Loc: ER Room: Type: [facility] ER Attending Dr: Ordering Provider: Jacinto [...] Jacinto Benitez MD 03/19/24 0105 Normal [facility] Erythrocyte distribution wid th [Ratio] by Automated countOrdered By: Jacinto Benitez on 03-18-2024 Erythrocyte distribution width (RBC) [Ratio] 14.3 % Normal 11.9-15.3 [facility] Comment on above: Performed By: #### C BC, CMP, HCGQUAL #### [facility] [address] Erythrocytes [#/volume] in B lood by Automated countOrdered By: Jacinto Benitez on 03-18-2024 RBC (Bld) [#/Vol] 5.79 10*6/uL High 3.60-5.00 [facility] Comment on above: Performed By: #### C BC, CMP, HCGQUAL #### [facility] [address] [place] [id number] [place] Glucose [Mass/volume] in Ser um or PlasmaOrdered By: Jacinto Benitez on 03-18-2024 Glucose [Mass/Vol] 95 mg/dL Normal 70-100 [facility] Comment on above: ADA recommended refe rence rangeRandom Glucose Reference Range is dependent on time and content of last meal. Glucose of more than 200 mg/dL in a nonstressed, ambulatory subject supports the diagnosis of Diabetes Mellitus. Result Comment: [place] Glucose Reference Range is dependent on time and content of last meal. Glucose of more than 200 mg/dL in a nonstressed, ambulatory subject supports the diagnosis of Diabetes Mellitus. ADA recommended reference range Performed By: #### C BC, CMP, HCGQUAL #### [address] HCG,Qualitative Serumon 02-27 HCG,Qualitative Serum Negative Normal [facility] Comment on above: Result Comment: PERF ORMED BY: [place] [address] PATHOLOGIST COMPUTER SYSTEMS CONSULTANT NAY SARKAR M.D. Performed By: #### C BC, CMP, HCGQUAL #### [address] Hematocrit [Volume Fraction] of Blood by Automated countOrdered By: Jacinto Benitez on 03-18-2024 Hematocrit (Bld) [Volume fraction] 48.2 % High 34.0-46.4 [facility] Comment on above: Performed By: #### C BC, CMP, HCGQUAL #### [address] Hemoglobin [Mass/volume] in BloodOrdered By: Jacinto Benitez on 03-18-2024 Hemoglobin (Bld) [Mass/Vol] 16.3 g/dL High 11.8-15.4 [facility] Comment on above: Performed By: #### C BC, CMP, HCGQUAL #### [address] Leukocytes [#/volume] correc venkata for nucleated erythrocytes in Blood by Automated counOrdered By: Jacinto Benitez on 03-18-2024 WBC corrected for nucl RBC Auto (Bld) [#/Vol] 18.5 10*3/uL 3.8-11.6 [facility] Leukocytes [#/volume] in Blo od by Automated countOrdered By: Jacinto Benitez on 03-18-2024 WBC (Bld) [#/Vol] 18.5 10*3/uL High 3.8-11.6 [facility] Comment on above: Performed By: #### C BC, CMP, HCGQUAL #### [facility] [address] [place] [address] Lymphocytes [#/volume] in Bl ood by Automated countOrdered By: Jacinto Benitez on 03-18-2024 Lymphocytes (Bld) [#/Vol] 3.9 10*3/uL Normal 1.00-4.8 [facility] Comment on above: Performed By: #### C BC, CMP, HCGQUAL #### [address] Lymphocytes/100 leukocytes i n Blood by Automated countOrdered By: Jacinto Benitez on 03-18-2024 Lymphocytes/100 WBC (Bld) 20.9 % Normal . [facility] Comment on above: Performed By: #### C BC, CMP, HCGQUAL #### [address] MCH [Entitic mass] by Automa venkata countOrdered By: Jacinto Benitez on 03-18-2024 MCH (RBC) [Entitic mass] 28.2 pg Normal 24.7-34.3 [facility] Comment on above: Performed By: #### C BC, CMP, HCGQUAL #### [address] MCHC Auto (RBC) [Mass/Vol]Or dered By: Jacinto Benitez on 03-18-2024 MCHC (RBC) [Mass/Vol] 33.9 g/dL 32.0-35.0 [facility] MCV [Entitic volume] by Auto mated countOrdered By: Jacinto Benitez on 03-18-2024 MCV (RBC) [Entitic vol] 83.2 fL Normal 80-100 [facility] Comment on above: Performed By: #### C BC, CMP, HCGQUAL #### [address] Monocyte distribution width [Entitic volume] in Blood by AutomatedOrdered By: Jacinto Benitez on 03-18-2024 Monocyte distribution width Auto (Bld) [Entitic vol] 16.34 % 0.00-20.00 [facility] Neutrophils [#/volume] in Bl ood by Automated countOrdered By: Jacinto Benitez on 03-18-2024 Neutrophils (Bld) [#/Vol] 12.7 10*3/uL High 1.8-7.7 [facility] Comment on above: Performed By: #### C BC, CMP, HCGQUAL #### [facility] [address] [place] [address] No Panel InformationOrdered By: Jacinto Benitez on 03-18-2024 Estimated GFR (CKD-EPI) > 60.0 mL/Min [facility] Creatinine Clearance (Chem 120.98 [facility] Nucleated erythrocytes [Pres ence] in Blood by Automated countOrdered By: Jacinto Benitez on 03-18-2024 Nucleated RBC Auto Ql (Bld) 0.1 /100{WBC} 0-0.5 [facility] Platelet mean volume [Entiti c volume] in Blood by Automated countOrdered By: Jacinto Benitez on 03-18-2024 Platelet mean volume (Bld) [Entitic vol] 8.5 fL Normal 6.3-10.7 [facility] Comment on above: Performed By: #### C BC, CMP, HCGQUAL #### [address] Platelets [#/volume] in Bloo d by Automated countOrdered By: Jacinto Benitez on 03-18-2024 Platelets (Bld) [#/Vol] 358 10*3/uL Normal 150-450 [facility] Comment on above: Performed By: #### C BC, CMP, HCGQUAL #### [facility] [address] [place] [address] Potassium [Moles/volume] in Serum or PlasmaOrdered By: Jacinto Benitez on 03-18-2024 Potassium [Moles/Vol] See comment 3.5-5.1 [facility] Comment on above: Specimen hemolyzed, redraw requestedResults calledat 2349 on 03/18/24 Protein [Mass/volume] in Ser um or PlasmaOrdered By: Jacinto Benitez on 03-18-2024 Protein [Mass/Vol] 8.1 g/dL Normal 6.4-8.9 [facility] Comment on above: Performed By: #### C BC, CMP, HCGQUAL #### [address] Serum globulin measurement b y calculation (mass/volume)Ordered By: Jacinto Benitez on 03-18-2024 Globulin (S) [Mass/Vol] 2.8 g/dL [facility] Comment on above: Performed By: #### C BC, CMP, HCGQUAL #### [address] Serum or plasma albumin/glob ulin mass ratioOrdered By: Jacinto Benitez on 03-18-2024 Albumin/Globulin [Mass ratio] 1.9 {ratio} [facility] Comment on above: Performed By: #### C BC, CMP, HCGQUAL #### [address] Serum or plasma anion gap de terminationOrdered By: Jacinto Benitez on 03-18-2024 Anion gap [Moles/Vol] TNP [facility] Comment on above: Test not performed Sodium [Moles/volume] in Ser um or PlasmaOrdered By: Jacinto Benitez on 03-18-2024 Sodium [Moles/Vol] 134 mmol/L Low 136-145 [facility] Comment on above: Performed By: #### C BC, CMP, HCGQUAL #### [address] Urea nitrogen [Mass/volume] in Serum or PlasmaOrdered By: Jacinto Benitez on 03-18-2024 Urea nitrogen [Mass/Vol] 27 mg/dL High 7-25 [facility] Comment on above: Performed By: #### C BC, CMP, HCGQUAL #### [address] CBC w/ Auto Diffon 4 Basophils/100 WBC (Bld) 0.4 % Normal 0.0-2.0 [facility] Comment on above: Performed By: #### 2 665458, 30900016, 0207261, 5257309 ####[address] [address] Basophils/Leukocytes Auto (Bld) [Pure # fraction] 0.1 E9/L Normal 0.0-0.2 [facility] Comment on above: Performed By: #### 2 697314, 96672651, 9194884, 5475533 ####[address] [address] Eosinophils (Bld) [#/Vol] 0.0 E9/L Normal 0.0-0.5 [facility] Comment on above: Performed By: #### 2 493096, 42773938, 8311257, 5403208 ####[address] [address] Eosinophils/100 WBC (Bld) 0.3 % Normal 0.0-8.0 [facility] Comment on above: Performed By: #### 2 178450, 87155574, 3004395, 8483813 ####[address] [address] Erythrocyte distribution width (RBC) [Ratio] 14.1 % Normal 10.9-14.2 [facility] Comment on above: Performed By: #### 2 890184, 22138640, 0173065, 1478361 ####[address] [address] Hematocrit (Bld) [Volume fraction] 44.0 % Normal 34.0-46.0 [facility] Comment on above: Performed By: #### 2 719130, 07655102, 8408475, 4510708 ####[address] [address] Hemoglobin (Bld) [Mass/Vol] 14.4 g/dL Normal 12.0-16.0 [facility] Comment on above: Performed By: #### 2 380362, 61375549, 2952585, 0928974 ####[address] [place] [address] Lymphocytes (Bld) [#/Vol] 2.2 E9/L Normal 1.0-4.0 [facility] Comment on above: Performed By: #### 2 174470, 22395126, 9940496, 8745551 ####[address] [address] Lymphocytes/100 WBC (Bld) 15.8 % Normal 14.0-50.0 [facility] Comment on above: Performed By: #### 2 428072, 39173841, 3482480, 3812026 ####[address] [address] MCH (RBC) [Entitic mass] 27.8 pg Normal 27.0-34.0 [facility] Comment on above: Performed By: #### 2 110059, 31661777, 7547164, 1788260 ####[address] [address] MCHC (RBC) [Mass/Vol] 32.6 g/dL Normal 31.4-36.0 [facility] Comment on above: Performed By: #### 2 115397, 08540424, 1150211, 6478221 ####[address] [address] MCV (RBC) [Entitic vol] 85.2 fL Normal 80.0-100.0 [facility] Comment on above: Performed By: #### 2 442203, 19821139, 4347480, 2761779 ####[address] [address] Monocytes (Bld) [#/Vol] 1.1 E9/L High 0.2-1.0 [facility] Comment on above: Performed By: #### 2 669383, 17571270, 2931224, 4722850 ####[address] [address] Neutrophils (Bld) [#/Vol] 10.6 E9/L High 2.0-7.5 [facility] Comment on above: Performed By: #### 2 655108, 79819498, 7732992, 9645419 ####[address] [address] Neutrophils/100 WBC (Bld) 75.9 % High 36.0-75.0 [facility] Comment on above: Performed By: #### 2 549291, 88385963, 6418301, 1266509 ####[address] [address] Platelet mean volume (Bld) [Entitic vol] 8.4 fL Normal 6.4-10.8 [facility] Comment on above: Performed By: #### 2 110469, 78252384, 6361604, 0273098 ####[address] [address] Platelets (Bld) [#/Vol] 276.0 E9/L Normal 150.0-500. 0 [facility] Comment on above: Performed By: #### 2 204190, 43953614, 4996147, 4993569 ####[address] [address] RBC (Bld) [#/Vol] 5.2 E12/L Normal 4.3-5.9 [facility] Comment on above: Performed By: #### 2 325927, 28029517, 9170642, 3363571 ####[address] [address] WBC corrected for nucl RBC Auto (Bld) [#/Vol] 14.0 E9/L High 4.0-11.0 [facility] Comment on above: Performed By: #### 2 592407, 46466897, 0195046, 4604786 ####[address] [address] CHEMISTRYOrdered By: SYSTEM SYSTEM on 03-15-2024 Albumin [...] Chloride [Moles/Vol] 99 mmol/L Low 101-111 [facility] Comment on above: Performed By: #### 2 606025, 58658524, 4909803, 0897055 ####[facility] [address] [place] [address] Potassium [Moles/Vol] 3.3 mmol/L Low 3.5-5.3 [facility] Comment on above: Performed By: #### 2 507569, 88338702, 2987822, 3384330 ####[facility] [address] [place] [address] Sodium [Moles/Vol] 137 mmol/L Normal 135-145 [facility] Comment on above: Performed By: #### 2 491205, 56400383, 0877547, 3982998 ####[facility] [address] [place] [address] Anion gap [Moles/Vol] 22 mmol/L High 6-16 [facility] Comment on above: Performed By: #### 2 663541, 70180416, 1405536, 5205846 ####[facility] [address] [place] [address] CO2 [Moles/Vol] 19 mmol/L Low 21-31 [facility] Comment on above: Performed By: #### 2 282962, 89662745, 0666083, 0860410 ####[facility] [address] [place] [address] Albumin [Mass/Vol] 5.0 g/dL Normal 3.3-5.0 [facility] Comment on above: Performed By: #### 2 761558, 64424335, 5503941, 0010198 ####[facility] [address] [place] [address] Albumin/Globulin (S) [Mass conc ratio] 1.8 Normal 1.1-2.2 [facility] Comment on above: Performed By: #### 2 885889, 79302213, 4070375, 0610180 ####[facility] [address] [place] [address] ALP [Catalytic activity/Vol] 69 Int._Unit/L Normal 21-98 [facility] Comment on above: Performed By: #### 2 245907, 46911234, 6911381, 9554224 ####[facility] [address] [place] [address] ALT No additional P-5'-P [Catalytic activity/Vol] 31 Int._Unit/L Normal 6-46 [facility] Comment on above: Performed By: #### 2 678263, 19153063, 7697418, 3495292 ####[facility] [address] [place] [address] AST [Catalytic activity/Vol] 19 Int._Unit/L Normal 5-43 [facility] Comment on above: Performed By: #### 2 458767, 77752280, 0662770, 8333500 ####[facility] [address] [place] [address] Bilirubin [Mass/Vol] 0.8 mg/dL Normal 0.0-1.1 [facility] Comment on above: Performed By: #### 2 134158, 66755440, 0308022, 5647625 ####[facility] [address] [place] [address] Calcium [Mass/Vol] 10.4 mg/dL Normal 8.9-11.1 [facility] Comment on above: Performed By: #### 2 348981, 52803711, 6641955, 3334381 ####[facility] [address] [place] [address] Creatinine [Mass/Vol] 0.8 mg/dL Normal 0.5-1.3 [facility] Comment on above: Performed By: #### 2 225907, 20825192, 2461051, 5758506 ####[facility] [address] [place] [address] Globulin (S) [Mass/Vol] 2.8 g/dL Normal 1.4-4.0 [facility] Comment on above: Performed By: #### 2 121722, 68611584, 3223124, 1962420 ####[facility] [address] [place] [address] Glucose [Mass/Vol] 86 mg/dL Normal 55-199 [facility] Comment on above: Performed By: #### 2 864690, 64117087, 0233259, 0083858 ####[facility] [facility] [address] [place] [address] Protein [Mass/Vol] 7.8 g/dL Normal 6.0-7.8 [facility] Comment on above: Performed By: #### 2 310543, 86957400, 7211038, 1136168 ####[facility] [address] [place] [address] Urea nitrogen [Mass/Vol] 24 mg/dL High 5-21 [facility] Comment on above: Performed By: #### 2 218119, 35631645, 3610948, 3982031 ####[facility] [address] [place] [address] Urea nitrogen/Creatinine [Mass ratio] 30 No Units High 10-20 [facility] Comment on above: Performed By: #### 2 700757, 84983878, 7187963, 4625908 ####[facility] [address] [place] [address] Chest w/ Contraston 03-15 CT Chest [...] 300 Contrast amount in ml's: 100 Normal [facility] Consent for Treatmenton 02-26 Consent for Treatment [id number] Normal [facility] Discharge Instructionson Discharge Instructions [id number] Normal [facility] ED Clinical Summaryon 2023 ED Clinical Summary (Inserted Image. Vesta ble to display) [place] [id number] ED Clinical Summary Person Information Name: PILI PARIKH/Nathan Age: 19 Years : 2005 Sex: Female Language: Micronesian PCP: MODESTA ARCHIBALD Marital Status: Single Visit [...] 03/15/2024 13:49:40 03/15/2024 13:49:40 03/15/2024 13:49:40 ADDRESS: [address] [place] [id number] PHYS DOC NOTES: MEDICAL INFORMATION: Prescriptions Given: Medications to Continue with No Changes Other Medications acetaminophen-hydrocodone ([place] 325 mg-5 mg oral tablet) 1 Tablets [...] symptoms. DIAGNOSIS: 1:Nausea and vomiting; 2:Pneumomediastinum Normal [facility] ED Note-Physicianon 03-15-20 ED Note-Physician Basic Information Time Seen: Ebony Birmingham, August Carbone 03/15/2024 10:35 Chief Complaint pt. states Dr. [...] Return to (more content not included)... Normal [facility] Comment on above: Result Comment: Elec tronically [...] added (diluted fruit juice). ? Eat bland, plvj-nc-wfwhrz foods in small amounts as you are able. These foods include bananas, applesauce, rice, lean meats, toast, and crackers. ? Avoid fluids that contain a lot of sugar or caffeine, such as energy drinks, sports drinks, and soda. ? Avoid alcohol. ? Avoid spicy or fatty foods. General instructions ? Take lnmv-aiv-cjlavmt and prescription medicines only as told by your health care provider. ? Drink enough fluid to keep your urine pale yellow. ? Wash your hands often using soap and water for at least 20 seconds. If soap and water are not available, use hand office machinery or equipment installer. ? Make sure that everyone in your [...] and drinking to prevent dehydration. ? Take uxay-txl-aviunle and prescription medicines only as told by [...] provider. Document Revised: 05/21/2022 Document Reviewed: 05/21/2022 [employer] Patient Education ? 2022 [employer]. Radiology Pneumomediastinum Pneumomediastinum is the presence of [...] marijuana. Spontane (more content not included)... Normal [facility] ED Patient Summaryon 024 ED Patient Summary (Inserted Image. Vesta ble to display) [place] [id number] Patient Discharge Instructions Person Information Name: PILI PARIKH Age: 19 Years Arrival Date: 03/15/2024 10:32:10 Discharge Diagnosis: 1:Nausea and vomiting; 2:Pneumomediastinum Primary Care Physician: MODESTA ARCHIBALD Provider Information Primary Provider: August Beck M.D. Advanced Buckle Sorter:None The exam and treatment you received in the Emergency Department were for an urgent problem and are not intended as complete care. It is important that you follow up with a doctor, nurse practitioner, or physician?s underwriting assistant for ongoing care. If your symptoms [...] opioids can be used to help relieve gfceystl-xa-xgfgrv pain and are often prescribed following a [...] be strugg (more content not included)... Normal [facility] HEMATOLOGYOrdered By: SYSTEM SYSTEM on 03-15-2024 Basophils/100 [...] 03-15-2024 Magnesium [Mass/Vol] 2.2 mg/dL Normal 1.3-2.4 [facility] Comment on above: Performed By: #### 2 709697, 33844810, 9707079, 4994979 ####[facility] [address] [place] [address] eGFRon 03-15-2024 eGFR 108 mL/min/1.73 m2 Normal >=59 [facility] Comment on above: Order Comment: Order added by Discern Expert. Performed By: #### 2 980361, 50676507, 8205818, 4929890 ####[facility] [address] [place] [address] CT Abdomen/Pelvis w/ Contras ton 03-14-2024 CT [...] 300 Contrast amount in ml's: 130 Normal [facility] CT Chest w/ Contraston 03-14 CT Chest [...] 300 Contrast amount in ml's: 130 Normal [facility] CT Head or Brain w/o Contras ton [...] M.D. Transcribed by: KIRA Technologist: RAVEN Normal [facility] CT Spine Cervical w/o Contra ston 03-14-2024 [...] M.D. Transcribed by: KIRA Technologist: RAVEN Normal [facility] EMS Documentationon 03-14-20 EMS Documentation Please click on link to see report Normal [facility] Comment on above: Result Comment: Miss ing [...] mGy = na DAP = na Normal [facility] ABO/Rhon 03-13-2024 ABO/Rh Positive Invalid Interpretation Code [facility] Comment on above: Performed By: #### 2 556491, 97738292, 13882882, 72018859 ####[facility] [address] [place] [address] ABO/Rh History Checkon 03-13 ABO/Rh History Check Patient discharged prior Normal [facility] Comment on above: Performed By: #### 2 788063, 05602267, 45429329, 44737691 ####[facility] [address] [place] [address] ABSCon 03-13-2024 ABSC Gel Interp Negative Normal [facility] Comment on above: Performed By: #### 2 823116, 08071940, 01607937, 60350552 ####[facility] [address] [place] [address] B hCG Qualon 03-13-2024 Beta HCG ( test) Ql Negative Normal [facility] Comment on above: Performed By: #### 2 9017805, 1798618, 1833433, 2271763, 0352036, 58248091, 14775295, 3198348, 9936676 ####[facility] [address] [place] [address] BLOOD BANKOrdered By: Scarlet Lindquist on 03-13-2024 ABO/Rh Interp Positive Invalid Interpretation Code [facility] BB Subsection ABSC Gel Interp Negative (03/13/24 6:53 PM) Normal [facility] BB Subsection BMPon 03-13-2024 Anion gap [Moles/Vol] 16 mmol/L Normal 05-13 [facility] Comment on above: Performed By: #### 2 6827216, 3975346, 4102361, 3921794, 8506677, 52270758, 69727510, 4825472, 4074119 ####[facility] [address] [place] [address] Calcium [Mass/Vol] 10.8 mg/dL Normal 8.9-11.1 [facility] Comment on above: Performed By: #### 2 7467016, 4161014, 1570728, 7475223, 4317756, 47262058, 67263414, 7091191, 6696849 ####[facility] [address] [place] [address] Chloride [Moles/Vol] 105 mmol/L Normal 101-111 [facility] Comment on above: Performed By: #### 2 7412872, 9794258, 7244989, 6354257, 8422998, 50866732, 53210415, 1819176, 9556070 ####[facility] [address] [place] [address] CO2 [Moles/Vol] 25 mmol/L Normal 21-31 [facility] Comment on above: Performed By: #### 2 1558993, 8515659, 5217845, 8572375, 1523298, 18861688, 01039695, 4166771, 9169928 ####[facility] [address] [place] [address] Creatinine [Mass/Vol] 0.9 mg/dL Normal 0.5-1.3 [facility] Comment on above: Performed By: #### 2 3664067, 5767453, 5205286, 3762806, 4884388, 11246532, 99913122, 8744465, 7012563 ####[facility] [address] [place] [address] Glucose [Mass/Vol] 100 mg/dL Normal 55-199 [facility] Comment on above: Performed By: #### 2 1198340, 9938260, 9455243, 1418409, 5855896, 01097991, 12843190, 3612687, 0296933 ####[facility] [address] [place] [address] Potassium [Moles/Vol] 3.3 mmol/L Low 3.5-5.3 [facility] Comment on above: Performed By: #### 2 9313546, 1402040, 1168956, 7403948, 4554932, 06350923, 99815486, 5694096, 1224561 ####[facility] [address] [place] [address] Sodium [Moles/Vol] 143 mmol/L Normal 135-145 [facility] Comment on above: Performed By: #### 2 6195874, 0465029, 2991421, 5991817, 9233754, 54957234, 25143876, 0748467, 5534242 ####[facility] [address] [place] [address] Urea nitrogen [Mass/Vol] 24 mg/dL High 5-21 [facility] Comment on above: Performed By: #### 2 7891699, 9192992, 8607249, 6022437, 0841941, 71942488, 43439772, 8819143, 1564644 ####[place] [address] [place] [address] Urea nitrogen/Creatinine [Mass ratio] 27 No Units High 10-20 [facility] Comment on above: Performed By: #### 2 7024721, 1570089, 5483918, 4151837, 2613041, 21251017, 24667997, 0751967, 0661509 ####[place] [address] [place] [address] Blood Bank ID#on 03-13-2024 BBID# [id number] Invalid Interpretation Code [facility] Comment on above: Performed By: #### 2 039751, 82862620, 95979617, 04282065 ####[facility] [address] [place] [address] CBC w/ Auto Diffon 4 Basophils/100 WBC (Bld) 0.4 % Normal 0.0-2.0 [facility] Comment on above: Performed By: #### 2 8966470, 5841863, 7929659, 7829052, 2713679, 07614365, 63943229, 7612359, 8529818 ####[address] [address] Basophils/Leukocytes Auto (Bld) [Pure # fraction] 0.1 E9/L Normal 0.0-0.2 [facility] Comment on above: Performed By: #### 2 9356602, 1701760, 1103142, 8748017, 2069752, 36191300, 54284130, 6018477, 1044758 ####[place] 45[address]457 Eosinophils (Bld) [#/Vol] 0.0 E9/L Normal 0.0-0.5 [facility] Comment on above: Performed By: #### 2 6582620, 9253974, 0293910, 3754148, 4747797, 28907962, 76578803, 1661258, 6784964 ####[address] [address] Eosinophils/100 WBC (Bld) 0.1 % Normal 0.0-8.0 [facility] Comment on above: Performed By: #### 2 7129258, 6776085, 8420871, 2347107, 0565601, 39111814, 55599866, 0965871, 6811714 ####[address] [address] Erythrocyte distribution width (RBC) [Ratio] 14.4 % High 10.9-14.2 [facility] Comment on above: Performed By: #### 2 1171707, 9358617, 6952241, 8734388, 1253608, 06201624, 07685709, 8642178, 8814039 ####[address] [address] Hematocrit (Bld) [Volume fraction] 42.5 % Normal 34.0-46.0 [facility] Comment on above: Performed By: #### 2 1558026, 2307912, 5163721, 4992817, 3499572, 14269478, 91501967, 9276219, 6778029 ####[address] [place] [address] Hemoglobin (Bld) [Mass/Vol] 14.0 g/dL Normal 12.0-16.0 [facility] Comment on above: Performed By: #### 2 3974934, 0258821, 6305622, 4695252, 7339834, 23556736, 81173472, 3862991, 0994520 ####[address] [address] Lymphocytes (Bld) [#/Vol] 2.3 E9/L Normal 1.0-4.0 [facility] Comment on above: Performed By: #### 2 6166587, 3913074, 7714198, 5981950, 9579333, 31389732, 60382075, 9544922, 9935770 ####[address] [address] Lymphocytes/100 WBC (Bld) 11.8 % Low 14.0-50.0 [facility] Comment on above: Performed By: #### 2 7440636, 3545159, 2619338, 4251733, 8772116, 13870916, 36272316, 9751160, 1072962 ####[address] [address] MCH (RBC) [Entitic mass] 27.6 pg Normal 27.0-34.0 [facility] Comment on above: Performed By: #### 2 4811136, 5731026, 6978510, 7233985, 6935834, 44666386, 38767656, 0416092, 0045704 ####[address] [address] MCHC (RBC) [Mass/Vol] 32.9 g/dL Normal 31.4-36.0 [facility] Comment on above: Performed By: #### 2 8053229, 0220467, 2604514, 7631532, 1202956, 87067498, 23098392, 5866701, 0814707 ####[address] [place] [address] MCV (RBC) [Entitic vol] 83.8 fL Normal 80.0-100.0 [facility] Comment on above: Performed By: #### 2 7323827, 9337960, 7561335, 9964977, 1473351, 74098342, 77899049, 5702137, 4017043 ####[address] [address] Monocytes (Bld) [#/Vol] 1.4 E9/L High 0.2-1.0 [facility] Comment on above: Performed By: #### 2 1510711, 5271049, 1533314, 0077410, 6010302, 15682123, 55190174, 2017547, 0838285 ####[address] [address] Neutrophils (Bld) [#/Vol] 15.5 E9/L High 2.0-7.5 [facility] Comment on above: Performed By: #### 2 3217492, 1321505, 4907535, 3879332, 5301891, 99890960, 56794270, 0107166, 6945077 ####[address] [address] Neutrophils/100 WBC (Bld) 80.6 % High 36.0-75.0 [facility] Comment on above: Performed By: #### 2 1439336, 4640773, 2949981, 3981976, 8960517, 85012344, 76039479, 4551649, 1168031 ####[address] [address] Platelet mean volume (Bld) [Entitic vol] 8.4 fL Normal 6.4-10.8 [facility] Comment on above: Performed By: #### 2 3321417, 5470428, 8057751, 0641468, 8900663, 23588945, 69279707, 0955458, 6381296 ####[address] [place] [address] Platelets (Bld) [#/Vol] 356.0 E9/L Normal 150.0-500. 0 [facility] Comment on above: Performed By: #### 2 2357473, 0883081, 1058001, 5480708, 5673289, 10612824, 66731875, 7394948, 6879331 ####[facility] [address] [place] [address] RBC (Bld) [#/Vol] 5.1 E12/L Normal 4.3-5.9 [facility] Comment on above: Performed By: #### 2 9325372, 1995063, 5670597, 1749305, 7849706, 06373416, 32623482, 1812549, 3848521 ####[facility] [address] [place] [address] WBC corrected for nucl RBC Auto (Bld) [#/Vol] 19.3 E9/L High 4.0-11.0 [facility] Comment on above: Result Comment: Slid e review performed Performed By: #### 2 4250124, 9381653, 7230274, 4329000, 0565868, 36425653, 96886663, 6130541, 0930875 ####[facility] [address] [place] [address] CHEMISTRYOrdered By: SYSTEM SYSTEM on 03-13-2024 Albumin [...] Sensitivity Troponin I Instructions For Use, [place], June 2018) Urea nitrogen [Mass/Vol] 24 mg/dL High 5 - 21 mg/dL [facility] Urea nitrogen/Creatinine [Mass ratio] 27 mg/mg High 10 - 20 [facility] COAGULATIONOrdered By: Jefe elvia Mccain on 03-13-2024 aPTT Coag (PPP) [Time] 32.8 s Normal 25.1 - 36.5 second(s) [facility] Auto Coag Comment on above: Interpretive Data: Piero chaudhary 15 days - 4 weeks 1 - 5 months 6 - 11 months 1 - 5 years 6 - 10 years 11 - 17 years PTT Mean: 35.4 (27.6-45.6) Mean: 33.5 (24.8-40.7) Mean: 32.4 (25.1-40.7) Mean: 31.6 (24.0-39.2) Mean: 31.6 (26.9-38.7) Mean: 31.0 (24.6-38.4) Pediatric Reference ranges were obtained from a study by zA Mary et al. prepared from 1437 samples obtained at 7 different centers using the same coagulation reagent and instrumentation as [facility]. Currently there are no coagulation studies available worldwide for children to 14 days, and no normal ranges. Heparin therapeutic range (represented by Anti-Factor Xa activity of 0.2 - 0.4 U/mL) corresponds to PTT of 56.6 - 109.0 sec. INR Coag (PPP) [Relative time] 1.11 {INR} Invalid Interpretation Code [facility] Comment on above: Interpretive Data: I NR results are specifically intended to assess patients stabilized on long-term Anticoagulation therapy suggested INR s Less Intensive Anticoagulation 2.0 3.0 Conventional Range 3.0 4.5 PT Coag (PPP) [Time] 12.4 s Normal 9.4 - 1 2.5 second(s) [facility] Comment on above: Interpretive Data: [...] the same coagulation reagent and instrumentation as [facility]. Currently there are no coagulation studies available worldwide for children to 14 days, and no normal ranges. Consent for Treatmenton 02-26 Consent for Treatment [id number]#1.00TIFF Normal [facility] Discharge Instructionson Discharge Instructions [id number]#1.00TIFF Normal [facility] ED Clinical Summaryon 2023 ED Clinical Summary (Inserted Image. Vesta ble to display) [place] [id number] ED Clinical Summary Person Information Name: PILI PARIKH/[facility] Age: 19 Years : 2005 Sex: Female Language: Micronesian PCP: MODESTA ARCHIBALD Marital Status: Single Visit [...] 03/13/2024 22:27:59 03/13/2024 22:27:59 ADDRESS: [address] [facility] [id number] PHYS DOC NOTES: MEDICAL INFORMATION: Prescriptions Given: New Medications [facility]/pharmacy #[id number], [address] [place] [place], [place] [id number], [phone] acetaminophen-hydrocodone ([place] 325 mg-5 mg oral tablet) 1 Tablets [...] EDUCATION INFORMATION: Instructions: Nausea and Vomiting, Adult, Dcfs-hl-Dsbo; Muscle Strain, Vjoh-qm-Fsfy Follow up: With: Address: When: MODESTA ARCHIBALD [address] [place], [place] [phone] Business (1) In 3 days 03/16/2024 Comments: [...] Back strain; N&V (nausea and vomiting) Normal [facility] ED Note-Physicianon 03-13-20 ED Note-Physician Basic Information [...] EDT, STA (more content not included)... Normal [facility] Comment on above: Result Comment: Elec tronically [...] ? Low-calorie sports drinks. ? Eat bland, iypc-su-hodwaf foods in small amounts as you are able, such as: ? Bananas. ? Applesauce. ? Rice. ? Low-fat (lean) meats. ? [place]. ? Crackers. ? Avoid drinking fluids that have a lot of sugar or caffeine in them. This includes energy drinks, sports drinks, and soda. ? Avoid alcohol. ? Avoid spicy or fatty foods. General instructions ? Take csxn-qqo-ppkneka and prescription medicines only as told by your doctor. ? Drink enough fluid to keep your pee (urine) pale yellow. ? Wash your hands often with soap and water for at least 20 seconds. If you cannot use soap and water, use hand office machinery or equipment installer. ? Make sure that everyone in your [...] doctor about eating and drinking. ? Take jejj-bel-vresmnn and prescription medicines only as told by your doctor. ? Contact your doctor if your symptoms get worse or you have new symptoms. ? Keep all follow-up visits. This information is not intended to replace advice given to you by your health care provider. Make sure you discuss any questions you have with your health care provider. Document Revised: 05/21/2022 Document Reviewed: 05/21/2022 [employer] Patient Education ? 2022 [employer] Orthopedics Muscle Strain A muscle strain, [...] your m (more content not included)... Normal [facility] ED Patient Summaryon 024 ED Patient Summary (Inserted Image. Vesta ble to display) [address] [address] Patient Discharge Instructions Person Information Name: PILI PARIKH Age: 19 Years Arrival Date: 03/13/2024 17:33:02 Discharge Diagnosis: 1:Fall down stairs; Abnormal CT scan, chest; Back strain; N&V (nausea and vomiting) Primary Care Physician: MODESTA ARCHIBALD Provider Information Primary Provider: Jacinto Roman DO Advanced Buckle Sorter:Gasper Lang PA-C The exam and treatment you received in the Emergency Department were for an urgent problem and are not intended as complete care. It is important that you follow up with a doctor, nurse practitioner, or physician?s underwriting assistant for ongoing care. If your symptoms [...] With: Address: When: MODESTA ARCHIBALD [address] [place], [place] [phone] Business (1) In 3 days 03/16/2024 Comments: [...] Patient Education Materials: Nausea and Vomiting, Adult, Rxll-ua-Nzwt; Muscle Strain, Ruph-vp-Xmil A MESSAGE TO ALL PATIENTS REGARDING OPIOIDS PRESCRIPTION OPIOIDS: WHAT YOU NEED TO KNOW Prescription opioids can be used to help relieve suococwh-sq-fhkyxs pain and are often prescribed following a [...] them juan (more content not included)... Normal [facility] ED Traumaon 03-13-2024 ED Trauma [id number]#1.00TIFF Normal [facility] Ethanolon 03-13-2024 Ethanol Lvl <10 Normal <=11 [facility] Comment on above: Performed By: #### 2 [address]32[address] ####[facility] [address] [place] [address] HEMATOLOGYOrdered By: SYSTEM SYSTEM on 03-13-2024 Basophils/100 [...] Result Comment: Slid e review performed Hep [facility] Panelon 03-13-2024 Albumin [Mass/Vol] 5.4 g/dL High 3.3-5.0 [facility] Comment on above: Performed By: #### 2 6363493, 0445257, 1239640, 0819139, 3100321, 74203193, 56687813, 5683068, 5542394 ####[facility] [address] [place] [address] Albumin/Globulin (S) [Mass conc ratio] 1.8 Normal 1.1-2.2 [facility] Comment on above: Performed By: #### 2 9544208, 8591956, 0411732, 9996517, 6206885, 88102401, 76271339, 5914484, 4652957 ####[facility] [address] [place] [address] ALP [Catalytic activity/Vol] 82 Int._Unit/L Normal 21-98 [facility] Comment on above: Performed By: #### 2 4716159, 8145503, 5006976, 2229270, 0441303, 07682087, 25837117, 4391512, 3085772 ####[address] [place] [address] ALT No additional P-5'-P [Catalytic activity/Vol] 44 Int._Unit/L Normal 6-46 [facility] Comment on above: Performed By: #### 2 4780742, 2295487, 2949233, 7860814, 8436228, 07242252, 42279304, 3998721, 8264394 ####[address] [address] AST [Catalytic activity/Vol] 23 Int._Unit/L Normal 5-43 [facility] Comment on above: Performed By: #### 2 0865929, 5709528, 0025658, 2284720, 3799713, 91819164, 70820368, 0986417, 6700548 ####[place] [address] Bilirubin [Mass/Vol] 0.8 mg/dL Normal 0.0-1.1 [facility] Comment on above: Performed By: #### 2 7924448, 3917241, 2529253, 6848032, 0002758, 20590372, 44476160, 2291616, 6548247 ####[address] [address] Bilirubin.direct [Mass/Vol] 0.2 mg/dL Normal 0.0-0.4 [facility] Comment on above: Performed By: #### 2 9271985, 0415518, 3046073, 5929775, 5549168, 04644045, 68194345, 6670959, 0277620 ####[place] [address] Bilirubin.indirect [Mass or moles/Vol] 0.6 mg/dL Normal 0.1-0.9 [facility] Comment on above: Performed By: #### 2 7102773, 8985124, 1248334, 9510570, 1881922, 57099791, 64710124, 2171646, 5518963 ####[address] [place] [address] Globulin (S) [Mass/Vol] 3.0 g/dL Normal 1.4-4.0 [facility] Comment on above: Performed By: #### 2 1199671, 2769246, 2631243, 0234943, 2636485, 09165552, 93101736, 3950683, 6373520 ####[address] [place] [address] Protein [Mass/Vol] 8.4 g/dL High 6.0-7.8 [facility] Comment on above: Performed By: #### 2 8889762, 4058577, 9988202, 3241247, 4811398, 24190697, 32030504, 1247852, 6739477 ####[address] [address] Lactic Acidon 03-13-2024 Lactic Acid Lvl 1.7 mmol/L Normal 0.5-2.2 [facility] Comment on above: Performed By: #### 2 6698279, 0481281, 3751365, 2990989, 9140075, 48184983, 20655607, 3503237, 2175542 ####[address] [address] Lipase Levelon 03-13-2024 Lipase [Catalytic activity/Vol] 14 U/L Normal 13-58 [facility] Comment on above: Performed By: #### 2 6507250, 8436827, 9190592, 0683377, 8214265, 31849952, 57693059, 9511746, 0622785 ####[address] [address] Monitor Recordon 03-13-2024 Monitor Record [id number]#1.00TIFF Normal [facility] Monitor Record [id number]#1.00TIFF Normal [facility] PT & PTTon 03-13-2024 aPTT Coag (PPP) [Time] 32.8 second(s) Normal 25.1-36.5 [facility] [facility] Comment on above: Result Comment: Para meter [...] the same coagulation reagent and instrumentation as [facility]. Currently there are no coagulation studies available worldwide for children to 14 days, and no normal ranges. Heparin therapeutic range (represented by Anti-Factor Xa activity of 0.2 - 0.4 U/mL) corresponds to PTT of 56.6 - 109.0 sec. Performed By: #### 2 [id number], [id number], [id number], [id number], [id number], 9304240, [id number] ####[facility] [address] [place] [address] INR Coag (PPP) [Relative time] 1.11 {INR} Invalid Interpretation Code [facility] Comment on above: Result Comment: INR results are specifically intended to assess patients stabilized on long-term Anticoagulation therapy suggested INR?s ?Less Intensive Anticoagulation? 2.0 ? 3.0 Conventional Range 3.0 ? 4.5 Performed By: #### 2 [id number], [id number], [id number], 9694728, [id number], [id number], 9035903, [id number] ####[facility] [address] [place] [address] PT Coag (PPP) [Time] 12.4 second(s) Normal 9.4-12.5 [facility] Comment on above: Result Comment: 15 d [...] the same coagulation reagent and instrumentation as [facility]. Currently there are no coagulation studies available worldwide for children to 14 days, and no normal ranges. Performed By: #### 2 [id number], [id number], 4414324, 2898518, [id number], [id number], [id number], [id number] ####[facility] [address] [place] [address] Pre-Arrival Noteon Pre-Arrival Note Pre-Arrival Summary Name: LOS Current Date: 03/13/2024 17:34:24 EDT Gender: Female Date of : Age: 19 Pre-Arrival Type: EMS ETA: 03/13/2024 17:59:00 EDT Primary Care Physician: Presenting Problem: fall down 10 stairs Pre-Arrival User: Payal Robison RN Referring Source: Location: Completion Date/Time: 03/13/2024 17:29:00 [facility] Emergency Department Pre-Hospital Report Form Vital Signs: 127/83; 66; 17; 96%; GCS 15 Pre-Hospital Report: Treatment in Route: C-COLLAR Response to Treatment: Misc. Issues: Normal [facility] Prescriptions/Work Noteson 0 03-13-2024 Prescriptions/Work Notes [id number] Normal [facility] RAD - Preliminary Cat Scan R eporton 03-13-2024 RAD - Preliminary Cat Scan Report [id number] Normal [facility] SEROLOGYOrdered By: Virginia Mccain on 03-13-2024 Beta HCG ( test) Ql Negative (03/13/24 6:53 PM) Normal [facility] Man Sero Troponinon 03-13-2024 Troponin 6.10 pg/mL Low 10.10-27.1 0 [facility] Comment on above: Result Comment: The 95% CI (Confidence Interval) PPV (Positive Predictive Value) for myocardial infarction in females is 38 pg/mL, in males 51 pg/mL. The results should be used in conjunction with clinical conditions of myocardial infarction. (Access High Sensitivity Troponin I Instructions For Use, [facility], June 2018) Performed By: #### 2 [id number], [id number], 9955886, 9793293, [id number], [id number], 3079889, [id number] ####[facility] [address] [place] [address] eGFRon 03-13-2024 eGFR 94 mL/min/1.73 m2 Normal >=59 [facility] Comment on above: Order Comment: rosemary t o run. phlebotomists notified of recollect by message. [email or web address] 03/13/2024 18:28:21 EDTOrder added by Discern Expert. Performed By: #### 2 [id number], 9034133, 4872586, 7313555, [id number], [id number], 7332415, [id number] ####[facility] [address] [place] [address] Amphetamine Screen Ql (U)Ord ered By: Familia Christian on 05-25-2023 Amphetamines Ql (U) Negative Negative [facility] Barbiturates [Presence] in U rine by Screen methodOrdered By: Familia Christian on 05-25-2023 Barbiturates Screen Ql (U) Negative Negative [facility] Benzodiazepines Screen Ql (U )Ordered By: Familia Christian on 05-25-2023 Benzodiazepines Ql (U) Negative Negative [facility] Benzoylecgonine [Presence] i n Urine by Screen methodOrdered By: Familia Christian on 05-25-2023 Benzoylecgonine Screen Ql (U) Negative Negative [facility] Cannabinoids [Presence] in U rine by Screen methodOrdered By: Familia Christian on 05-25-2023 Cannabinoids Screen Ql (U) Positive Negative [facility] Comment on above: These are unconfirme d results and should not be used for legal purposes. Drug Cut-Off Concentration: AMPH 1000 ng/mL NIKOLAS 200 ng/mL SHRAVAN 200 ng/mL COCM 300 ng/mL OP 300 ng/mL PCP 25 ng/mL THC 20 ng/mL HCG ( test) IA.rapi d Ql (U)Ordered By: Familia Christian on 05-25-2023 HCG ( test) Ql (U) Negative [facility] Opiates [Presence] in Urine by Screen methodOrdered By: Familia Christian on 05-25-2023 Opiates Screen Ql (U) Negative Negative [facility] Phencyclidine Screen Ql (U)O rdered By: Familia Christian on 05-25-2023 Phencyclidine Ql (U) Negative Negative [facility] COVID-19 Detected/Not Detect edOrdered By: Modesta Chand on 03-15-2023 SARS-CoV-2 (COVID-19) RNA JANAK+non-probe Ql (Nph) Not detected Not Detecte [facility] Comment on above: This is a duplicate RP2.1 COVID (PCR) result to be used for statistical tracking purpose only. Respiratory pathogens DNA an d RNA panel - Nasopharynx by JANAK with non-probe detectionOrdered By: Modesta Chand on 03-15-2023 Respiratory pathogens DNA and RNA panel JANAK+non-probe (Nph) [facility] Basophils Auto (Bld) [#/Vol] Ordered By: Anette Stout on 01-07-2023 Basophils (Bld) [#/Vol] 0.0 10*3/uL 0.0-0.1 [facility] Basophils/100 WBC Auto (Bld) Ordered By: Anette Stout on 01-07-2023 Basophils/100 WBC (Bld) 0.4 % . [facility] Eosinophils Auto (Bld) [#/Vo l]Ordered By: Anette Stout on 01-07-2023 Eosinophils (Bld) [#/Vol] 0.7 10*3/uL 0.0-0.7 [facility] Eosinophils/100 WBC Auto (Bl d)Ordered By: Anette Stout on 01-07-2023 Eosinophils/100 WBC (Bld) 5.5 % . [facility] Erythrocyte distribution wid th Auto (RBC) [Ratio]Ordered By: Anette Stout on 01-07-2023 Erythrocyte distribution width (RBC) [Ratio] 13.5 % 11.9-15.3 [facility] Estimated glomerular filtrat ion rate (GFR) non- AmericanOrdered By: Anette Stout on 01-07-2023 GFR/1.73 sq M.predicted among non-blacks MDRD (S/P/Bld) [Vol rate/Area] > 60 mL/Min [facility] Hematocrit Auto (Bld) [Volum e fraction]Ordered By: Anette Stout on 01-07-2023 Hematocrit (Bld) [Volume fraction] 41.5 % 36.0-46.0 [facility] Hemoglobin [Mass/volume] in BloodOrdered By: Anette Stout on 01-07-2023 Hemoglobin (Bld) [Mass/Vol] 14.0 g/dL 12.0-16.0 [facility] Leukocytes [#/volume] correc venkata for nucleated erythrocytes in Blood by Automated counOrdered By: Anette Stout on 01-07-2023 WBC corrected for nucl RBC Auto (Bld) [#/Vol] 12.1 10*3/uL 4.5-13.5 [facility] Lymphocytes Auto (Bld) [#/Vo l]Ordered By: Anette Stout on 01-07-2023 Lymphocytes (Bld) [#/Vol] 2.5 10*3/uL 1.20-4.8 [facility] Lymphocytes/100 WBC Auto (Bl d)Ordered By: Anette Stout on 01-07-2023 Lymphocytes/100 WBC (Bld) 20.9 % . [facility] MCH Auto (RBC) [Entitic mass ]Ordered By: Anette Stout on 01-07-2023 MCH (RBC) [Entitic mass] 28.8 pg 25.0-35.0 [facility] MCHC Auto (RBC) [Mass/Vol]Or dered By: Anette Stout on 01-07-2023 MCHC (RBC) [Mass/Vol] 33.7 g/dL 31.0-37.0 [facility] MCV Auto (RBC) [Entitic vol] Ordered By: Anette Stout on 01-07-2023 MCV (RBC) [Entitic vol] 85.5 fL 78-102 [facility] Monocytes Auto (Bld) [#/Vol] Ordered By: Anette Stout on 01-07-2023 Monocytes (Bld) [#/Vol] 0.9 10*3/uL 0.1-1.00 [facility] Monocytes/100 WBC Auto (Bld) Ordered By: Anette Stout on 01-07-2023 Monocytes/100 WBC (Bld) 7.5 % . [facility] Neutrophils Auto (Bld) [#/Vo l]Ordered By: Anette Stout on 01-07-2023 Neutrophils (Bld) [#/Vol] 8.0 10*3/uL 1.2-7.7 [facility] Neutrophils/100 WBC Auto (Bl d)Ordered By: Anette Stout on 01-07-2023 Neutrophils/100 WBC (Bld) 65.7 % . [facility] No Panel InformationOrdered By: Anette Stout on 01-07-2023 > 60 mL/Min [facility] 113.92 [facility] Nucleated erythrocytes [Pres ence] in Blood by Automated countOrdered By: Anette Stout on 01-07-2023 Nucleated RBC Auto Ql (Bld) 0.1 /100{WBC} 0-0.5 [facility] Platelet mean volume Auto (B ld) [Entitic vol]Ordered By: Anette Stout on 01-07-2023 Platelet mean volume (Bld) [Entitic vol] 8.6 fL 6.3-10.7 [facility] Platelets Auto (Bld) [#/Vol] Ordered By: Anette Stout on 01-07-2023 Platelets (Bld) [#/Vol] 222 10*3/uL 150-450 [facility] RBC Auto (Bld) [#/Vol]Ordere d By: Anette Stout on 01-07-2023 RBC (Bld) [#/Vol] 4.85 10*6/uL 4.10-5.10 [facility] Serum or plasma anion gap de terminationOrdered By: Anette Stout on 01-07-2023 Anion gap [Moles/Vol] N/A [facility] Serum or plasma calcium tammy urement (mass/volume)Ordered By: Anette Stout on 01-07-2023 Calcium [Mass/Vol] 8.5 mg/dL 8.2-10.2 [facility] Serum or plasma chloride judy surement (moles/volume)Ordered By: Anette Stout on 01-07-2023 Chloride [Moles/Vol] 103 mmol/L 95-114 [facility] Serum or plasma creatinine m easurement with calculation of estimated glomerular filtrOrdered By: Anette Stout on 01-07-2023 Creatinine and Glomerular filtration rate.predicted panel (S/P/Bld) 0.77 mg/dL 0.44-1.03 [facility] Serum or plasma glucose tammy urement (mass/volume)Ordered By: Anette Stout on 01-07-2023 Glucose [Mass/Vol] 90 mg/dL 70-100 [facility] Serum or plasma potassium me asurement (moles/volume)Ordered By: Eliana Bautista on 01-07-2023 Potassium [Moles/Vol] 3.2 mmol/L 3.5-5.1 [facility] Serum or plasma sodium measu rement (moles/volume)Ordered By: Anette Stout on 01-07-2023 Sodium [Moles/Vol] 134 mmol/L 136-146 [facility] Serum or plasma total carbon dioxide measurement (moles/volume)Ordered By: Anette Stout on 01-07-2023 CO2 [Moles/Vol] 23.4 mmol/L 22.0-30.0 [facility] Serum or plasma urea nitroge n measurement (mass/volume)Ordered By: Anette Stout on 01-07-2023 Urea nitrogen [Mass/Vol] 8 mg/dL 9-23 [facility] WBC Auto (Bld) [#/Vol]Ordere d By: Anette Stout on 01-07-2023 WBC (Bld) [#/Vol] 12.1 10*3/uL 4.5-13.5 [facility] Amphetamine Screen Ql (U)Ord ered By: Anette Stout on 01-06-2023 Amphetamines Ql (U) Negative Negative [facility] Automated erythrocytes count in urine sediment (number/area)Ordered By: Rd Brown on 01-06-2023 RBC Auto (Urine sed) [#/Area] None seen [HPF] 0-4 [facility] Automated leukocytes count i n urine sediment (number/area)Ordered By: Rd Brown on 01-06-2023 WBC Auto (Urine sed) [#/Area] 20-49 [HPF] 0-4 [facility] Automated urine hyaline cast s count (number/volume)Ordered By: Rd Brown on 01-06-2023 Hyaline casts Auto (U) [#/Vol] None seen [LPF] 0-1 [facility] Barbiturates [Presence] in U rineOrdered By: Anette Stout on 01-06-2023 Barbiturates Ql (U) Negative Negative [facility] Basophils Auto (Bld) [#/Vol] Ordered By: Rd Brown on 01-06-2023 Basophils (Bld) [#/Vol] 0.0 10*3/uL 0.0-0.1 [facility] Basophils/100 WBC Auto (Bld) Ordered By: Rd Brown on 01-06-2023 Basophils/100 WBC (Bld) 0.3 % . [facility] Benzodiazepines [Presence] i n UrineOrdered By: Anette Stout on 02-09-2023 Benzodiazepines Ql (U) Negative [facility] Bilirubin Test strip Ql (U)O rdered By: Rd Brown on 01-06-2023 Bilirubin Ql (U) Negative Negative [facility] Body fluid albumin measureme nt (mass/volume)Ordered By: Rd Brown on 01-06-2023 Albumin (Body fld) [Mass/Vol] 4.9 g/dL 3.2-5.5 [facility] Cannabinoids [Presence] in U rine by Screen methodOrdered By: Anette Stout on 01-06-2023 Cannabinoids Screen Ql (U) Positive Negative [facility] Casts typing in urine sedime nt by light microscopyOrdered By: Rd Brown on 01-06-2023 Casts LM Nom (Urine sed) None seen [LPF] None Seen [facility] Color Auto (U)Ordered By: Andrew Brown on 01-06-2023 Color (U) Yellow Yellow [facility] Eosinophils Auto (Bld) [#/Vo l]Ordered By: Rd Brown on 01-06-2023 Eosinophils (Bld) [#/Vol] 0.4 10*3/uL 0.0-0.7 [facility] Eosinophils/100 WBC Auto (Bl d)Ordered By: Rd Brown on 01-06-2023 Eosinophils/100 WBC (Bld) 2.3 % . [facility] Erythrocyte distribution wid th Auto (RBC) [Ratio]Ordered By: Rd Brown on 01-06-2023 Erythrocyte distribution width (RBC) [Ratio] 13.5 % 11.9-15.3 [facility] Estimated glomerular filtrat ion rate (GFR) non- AmericanOrdered By: Rd Brown on 01-06-2023 GFR/1.73 sq M.predicted among non-blacks MDRD (S/P/Bld) [Vol rate/Area] > 60 mL/Min [facility] Globulin Calc (S) [Mass/Vol] Ordered By: Rd Brown on 01-06-2023 Globulin (S) [Mass/Vol] 2.9 g/dL [facility] HCG ( test) IA.rapi d Ql (U)Ordered By: Rd Brown on 01-06-2023 HCG ( test) Ql (U) Negative [facility] Hematocrit Auto (Bld) [Volum e fraction]Ordered By: Rd Brown on 01-06-2023 Hematocrit (Bld) [Volume fraction] 48.3 % 36.0-46.0 [facility] Hemoglobin [Mass/volume] in BloodOrdered By: Rd Brown on 01-06-2023 Hemoglobin (Bld) [Mass/Vol] 16.2 g/dL 12.0-16.0 [facility] Ketones Auto test strip (U) [Mass/Vol]Ordered By: Rd Brown on 01-06-2023 Ketones (U) [Mass/Vol] 4+ [facility] Leukocytes [#/volume] correc venkata for nucleated erythrocytes in Blood by Automated counOrdered By: Rd Brown on 01-06-2023 WBC corrected for nucl RBC Auto (Bld) [#/Vol] 17.7 10*3/uL 4.5-13.5 [facility] Lymphocytes Auto (Bld) [#/Vo l]Ordered By: Rd Brown on 01-06-2023 Lymphocytes (Bld) [#/Vol] 3.5 10*3/uL 1.20-4.8 [facility] Lymphocytes/100 WBC Auto (Bl d)Ordered By: Rd Brown on 01-06-2023 Lymphocytes/100 WBC (Bld) 19.9 % . [facility] MCH Auto (RBC) [Entitic mass ]Ordered By: Rd Brown on 01-06-2023 MCH (RBC) [Entitic mass] 28.7 pg 25.0-35.0 [facility] MCHC Auto (RBC) [Mass/Vol]Or dered By: Rd Brown on 01-06-2023 MCHC (RBC) [Mass/Vol] 33.6 g/dL 31.0-37.0 [facility] MCV Auto (RBC) [Entitic vol] Ordered By: Rd Brown on 01-06-2023 MCV (RBC) [Entitic vol] 85.4 fL 78-102 [facility] Monocyte distribution width [Entitic volume] in Blood by AutomatedOrdered By: Rd Brown on 01-06-2023 Monocyte distribution width Auto (Bld) [Entitic vol] 15.43 % 0.00-20.00 [facility] Monocytes Auto (Bld) [#/Vol] Ordered By: Rd Brown on 01-06-2023 Monocytes (Bld) [#/Vol] 1.3 10*3/uL 0.1-1.00 [facility] Monocytes/100 WBC Auto (Bld) Ordered By: Rd Brown on 01-06-2023 Monocytes/100 WBC (Bld) 7.4 % . [facility] Neutrophils Auto (Bld) [#/Vo l]Ordered By: Rd Brown on 01-06-2023 Neutrophils (Bld) [#/Vol] 12.4 10*3/uL 1.2-7.7 [facility] Neutrophils/100 WBC Auto (Bl d)Ordered By: Rd Brown on 01-06-2023 Neutrophils/100 WBC (Bld) 70.1 % . [facility] Nitrite Test strip Ql (U)Ord ered By: Rd Brown on 01-06-2023 Nitrite Ql (U) Negative Negative [facility] No Panel InformationOrdered By: Anette Stout on 01-06-2023 Negative Negative [facility] No Panel InformationOrdered By: Rd Brown on 01-06-2023 > 60 mL/Min [facility] 31.0 U/L 22-51 [facility] 102.00 [facility] Nucleated erythrocytes [Pres ence] in Blood by Automated countOrdered By: Rd Brown on 01-06-2023 Nucleated RBC Auto Ql (Bld) 0.1 /100{WBC} 0-0.5 [facility] Phencyclidine Screen Ql (U)O rdered By: Anette Stout on 01-06-2023 Phencyclidine Ql (U) Negative Negative [facility] Platelet mean volume Auto (B ld) [Entitic vol]Ordered By: Rd Brown on 01-06-2023 Platelet mean volume (Bld) [Entitic vol] 8.5 fL 6.3-10.7 [facility] Platelets Auto (Bld) [#/Vol] Ordered By: Rd Brown on 01-06-2023 Platelets (Bld) [#/Vol] 296 10*3/uL 150-450 [facility] Protein Auto test strip (U) [Mass/Vol]Ordered By: Rd Brown on 01-06-2023 Protein (U) [Mass/Vol] 100 mg/dL Negative [facility] Protein [Mass/volume] in Ser um or PlasmaOrdered By: Rd Brown on 01-06-2023 Protein [Mass/Vol] 7.8 g/dL 6.1-7.9 [facility] RBC Auto (Bld) [#/Vol]Ordere d By: Rd Brown on 01-06-2023 RBC (Bld) [#/Vol] 5.65 10*6/uL 4.10-5.10 [facility] Serum or plasma alanine florez otransferase measurement without P-5'-P (enzymatic activiOrdered By: Rd Brown on 01-06-2023 ALT No additional P-5'-P [Catalytic activity/Vol] 20 U/L 10-60 [facility] Serum or plasma albumin/glob ulin mass ratioOrdered By: Rd Brown on 01-06-2023 Albumin/Globulin [Mass ratio] 1.7 {ratio} [facility] Serum or plasma alkaline justin sphatase measurement (enzymatic activity/volume)Ordered By: Rd Brown on 01-06-2023 ALP [Catalytic activity/Vol] 66 U/L 32-92 [facility] Serum or plasma anion gap de terminationOrdered By: Rd Brown on 01-06-2023 Anion gap [Moles/Vol] 19.4 mmol/L 6.0-15.0 [facility] Serum or plasma aspartate am inotransferase measurement (enzymatic activity/volume)Ordered By: Rd Brown on 01-06-2023 AST [Catalytic activity/Vol] 20 U/L 10-42 [facility] Serum or plasma calcium tammy urement (mass/volume)Ordered By: Rd Brown on 01-06-2023 Calcium [Mass/Vol] 9.8 mg/dL 8.2-10.2 [facility] Serum or plasma chloride judy surement (moles/volume)Ordered By: Rd Brown on 01-06-2023 Chloride [Moles/Vol] 91 mmol/L 95-114 [facility] Serum or plasma creatinine m easurement with calculation of estimated glomerular filtrOrdered By: Rd Brown on 01-06-2023 Creatinine and Glomerular filtration rate.predicted panel (S/P/Bld) 0.86 mg/dL 0.44-1.03 [facility] Serum or plasma glucose tammy urement (mass/volume)Ordered By: Rd Brown on 01-06-2023 Glucose [Mass/Vol] 80 mg/dL 70-100 [facility] Serum or plasma potassium me asurement (moles/volume)Ordered By: Rd Brown on 01-06-2023 Potassium [Moles/Vol] 2.7 mmol/L 3.5-5.1 [facility] Serum or plasma sodium measu rement (moles/volume)Ordered By: Rd Brown on 01-06-2023 Sodium [Moles/Vol] 132 mmol/L 136-146 [facility] Serum or plasma total biliru bin measurement (mass/volume)Ordered By: Rd Brown on 01-06-2023 Bilirubin [Mass/Vol] 1.5 mg/dL 0.3-1.2 [facility] Serum or plasma total carbon dioxide measurement (moles/volume)Ordered By: Rd Brown on 01-06-2023 CO2 [Moles/Vol] 24.3 mmol/L 22.0-30.0 [facility] Serum or plasma urea nitroge n measurement (mass/volume)Ordered By: Rd Brown 01-06-2023 Urea nitrogen [Mass/Vol] 19 mg/dL 9-23 [facility] Specific gravity Auto test s trip (U) [Rel density]Ordered By: Rd Brown on 01-06-2023 Specific gravity (U) [Rel density] 1.027 1.001-1.03 0 [facility] Squamous epithelial cells de tection in urine sediment by light microscopyOrdered By: Rd Brown on 01-06-2023 Epithelial cells.squamous LM Ql (Urine sed) 10-19 [HPF] 0-2 [facility] Troponin I.cardiac [Mass/vol ume] in Serum or Plasma by High sensitivity methodOrdered By: Federico Randolph on 02-09-2023 Troponin I.cardiac High sensitivity method [Mass/Vol] 6 pg/mL 0-15 [facility] Urine bacteria detection by automated methodOrdered By: Rd Brown on 01-06-2023 Bacteria Auto Ql (U) 1+ None Seen [facility] Urine clarity by refractomet ry automatedOrdered By: Rd Brown on 01-06-2023 Clarity Refractometry automated (U) Cloudy Clear [facility] Urine cocaine detectionOrder ed By: Anette Stout on 01-06-2023 Cocaine Ql (U) Negative Negative [facility] Urine glucose measurement by automated test strip (mass/volume)Ordered By: Rd Brown on 01-06-2023 Glucose Auto test strip (U) [Mass/Vol] Normal mg/dL Normal [facility] Urine hemoglobin detection b y automated test stripOrdered By: Rd Brown on 01-06-2023 Hemoglobin Auto test strip Ql (U) 3+ Negative [facility] Urine lactic acid measuremen tOrdered By: Rd Brown on 01-06-2023 Lactate (U) [Moles/Vol] 1.6 mmol/L 0.5-2.2 [facility] Urine leukocyte esterase det ection by automated test stripOrdered By: Rd Brown on 01-06-2023 Leukocyte esterase Auto test strip Ql (U) 2+ Negative [facility] Urobilinogen Auto test strip (U) [Mass/Vol]Ordered By: Rd Brown on 01-06-2023 Urobilinogen (U) [Mass/Vol] Normal mg/dL Normal [facility] WBC Auto (Bld) [#/Vol]Ordere d By: Rd Brown on 01-06-2023 WBC (Bld) [#/Vol] 17.7 10*3/uL 4.5-13.5 [facility] pH Auto test strip (U)Ordere d By: Rd Brown on 01-06-2023 pH (U) 6.5 [pH] 5.0-9.0 [facility] Albumin [Mass/volume] in Ser um or PlasmaOrdered By: Ravi Arguello on 01-02-2023 Albumin [Mass/Vol] 5.0 g/dL 3.2-5.5 [facility] Automated erythrocytes count in urine sediment (number/area)Ordered By: Ravi Arguello on 01-02-2023 RBC Auto (Urine sed) [#/Area] 3-4 [HPF] 0-4 [facility] Automated leukocytes count i n urine sediment (number/area)Ordered By: Ravi Arguello on 01-02-2023 WBC Auto (Urine sed) [#/Area] 50-100 [HPF] 0-4 [facility] Automated urine hyaline cast s count (number/volume)Ordered By: Ravi Arguello on 01-02-2023 Hyaline casts Auto (U) [#/Vol] None seen [LPF] 0-1 [facility] Basophils Auto (Bld) [#/Vol] Ordered By: Ravi Arguello on 01-02-2023 Basophils (Bld) [#/Vol] 0.1 10*3/uL 0.0-0.1 [facility] Basophils/100 WBC Auto (Bld) Ordered By: Ravi Arguello on 01-02-2023 Basophils/100 WBC (Bld) 0.5 % . [facility] Bilirubin Test strip Ql (U)O rdered By: Ravi Arguello on 01-02-2023 Bilirubin Ql (U) Negative Negative [facility] Casts typing in urine sedime nt by light microscopyOrdered By: Ravi Arguello on 01-02-2023 Casts LM Nom (Urine sed) None seen [LPF] None Seen [facility] Color Auto (U)Ordered By: Gisselle Arguello on 01-02-2023 Color (U) Yellow Yellow [facility] Eosinophils Auto (Bld) [#/Vo l]Ordered By: Ravi Arguello on 01-02-2023 Eosinophils (Bld) [#/Vol] 0.0 10*3/uL 0.0-0.7 [facility] Eosinophils/100 WBC Auto (Bl d)Ordered By: Ravi Arguello on 01-02-2023 Eosinophils/100 WBC (Bld) 0.0 % . [facility] Erythrocyte distribution wid th Auto (RBC) [Ratio]Ordered By: Ravi Arguello on 01-02-2023 Erythrocyte distribution width (RBC) [Ratio] 13.9 % 11.9-15.3 [facility] Estimated glomerular filtrat ion rate (GFR) non- AmericanOrdered By: Ravi Arguello on 01-02-2023 GFR/1.73 sq M.predicted among non-blacks MDRD (S/P/Bld) [Vol rate/Area] > 60 mL/Min [facility] Globulin Calc (S) [Mass/Vol] Ordered By: Ravi Arguello on 01-02-2023 Globulin (S) [Mass/Vol] 2.9 g/dL [facility] HCG ( test) IA.rapi d Ql (U)Ordered By: Ravi Arguello on 01-02-2023 HCG ( test) Ql (U) Negative [facility] Hematocrit Auto (Bld) [Volum e fraction]Ordered By: Ravi Arguello on 01-02-2023 Hematocrit (Bld) [Volume fraction] 42.1 % 36.0-46.0 [facility] Hemoglobin [Mass/volume] in BloodOrdered By: Ravi Arguello on 01-02-2023 Hemoglobin (Bld) [Mass/Vol] 14.0 g/dL 12.0-16.0 [facility] Ketones Auto test strip (U) [Mass/Vol]Ordered By: Ravi Arguello on 01-02-2023 Ketones (U) [Mass/Vol] 3+ [facility] Leukocytes [#/volume] correc venkata for nucleated erythrocytes in Blood by Automated counOrdered By: Ravi Arguello on 01-02-2023 WBC corrected for nucl RBC Auto (Bld) [#/Vol] 14.1 10*3/uL 4.5-13.5 [facility] Lymphocytes Auto (Bld) [#/Vo l]Ordered By: Ravi Arguello on 01-02-2023 Lymphocytes (Bld) [#/Vol] 1.4 10*3/uL 1.20-4.8 [facility] Lymphocytes/100 WBC Auto (Bl d)Ordered By: Ravi Arguello on 01-02-2023 Lymphocytes/100 WBC (Bld) 10.1 % . [facility] MCH Auto (RBC) [Entitic mass ]Ordered By: Ravi Arguello on 01-02-2023 MCH (RBC) [Entitic mass] 28.6 pg 25.0-35.0 [facility] MCHC Auto (RBC) [Mass/Vol]Or dered By: Ravi Arguello on 01-02-2023 MCHC (RBC) [Mass/Vol] 33.2 g/dL 31.0-37.0 [facility] MCV Auto (RBC) [Entitic vol] Ordered By: Ravi Arguello on 01-02-2023 MCV (RBC) [Entitic vol] 86.2 fL 78-102 [facility] Monocyte distribution width [Entitic volume] in Blood by AutomatedOrdered By: Ravi Arguello on 01-02-2023 Monocyte distribution width Auto (Bld) [Entitic vol] 16.52 % 0.00-20.00 [facility] Monocytes Auto (Bld) [#/Vol] Ordered By: Ravi Arguello on 01-02-2023 Monocytes (Bld) [#/Vol] 1.0 10*3/uL 0.1-1.00 [facility] Monocytes/100 WBC Auto (Bld) Ordered By: Ravi Arguello on 01-02-2023 Monocytes/100 WBC (Bld) 7.0 % . [facility] Neutrophils Auto (Bld) [#/Vo l]Ordered By: Ravi Arguello on 01-02-2023 Neutrophils (Bld) [#/Vol] 11.6 10*3/uL 1.2-7.7 [facility] Neutrophils/100 WBC Auto (Bl d)Ordered By: Ravi Arguello on 01-02-2023 Neutrophils/100 WBC (Bld) 82.4 % . [facility] Nitrite Test strip Ql (U)Ord ered By: Ravi Arguello on 01-02-2023 Nitrite Ql (U) Negative Negative [facility] No Panel InformationOrdered By: Ravi Arguello on 01-02-2023 > 60 mL/Min [facility] 29.0 U/L 22-51 [facility] 86.85 [facility] Nucleated erythrocytes [Pres ence] in Blood by Automated countOrdered By: Ravi Arguello on 01-02-2023 Nucleated RBC Auto Ql (Bld) 0.0 /100{WBC} 0-0.5 [facility] Platelet mean volume Auto (B ld) [Entitic vol]Ordered By: Ravi Arguello on 01-02-2023 Platelet mean volume (Bld) [Entitic vol] 8.4 fL 6.3-10.7 [facility] Platelets Auto (Bld) [#/Vol] Ordered By: Ravi Arguello on 01-02-2023 Platelets (Bld) [#/Vol] 299 10*3/uL 150-450 [facility] Protein Auto test strip (U) [Mass/Vol]Ordered By: Ravi Arguello on 01-02-2023 Protein (U) [Mass/Vol] 100 mg/dL Negative [facility] Protein [Mass/volume] in Ser um or PlasmaOrdered By: Ravi Arguello on 01-02-2023 Protein [Mass/Vol] 7.9 g/dL 6.1-7.9 [facility] RBC Auto (Bld) [#/Vol]Ordere d By: Ravi Arguello on 01-02-2023 RBC (Bld) [#/Vol] 4.89 10*6/uL 4.10-5.10 [facility] Serum or plasma alanine florez otransferase measurement without P-5'-P (enzymatic activiOrdered By: Ravi Arguello on 01-02-2023 ALT No additional P-5'-P [Catalytic activity/Vol] 26 U/L 10-60 [facility] Serum or plasma albumin/glob ulin mass ratioOrdered By: Ravi Arguello on 01-02-2023 Albumin/Globulin [Mass ratio] 1.7 {ratio} [facility] Serum or plasma alkaline justin sphatase measurement (enzymatic activity/volume)Ordered By: Ravi Arguello on 01-02-2023 ALP [Catalytic activity/Vol] 60 U/L 32-92 [facility] Serum or plasma anion gap de terminationOrdered By: Ravi Arguello on 01-02-2023 Anion gap [Moles/Vol] 16.4 mmol/L 6.0-15.0 [facility] Serum or plasma aspartate am inotransferase measurement (enzymatic activity/volume)Ordered By: Ravi Arguello on 01-02-2023 AST [Catalytic activity/Vol] 32 U/L 10-42 [facility] Serum or plasma calcium tammy urement (mass/volume)Ordered By: Ravi Arguello on 01-02-2023 Calcium [Mass/Vol] 9.8 mg/dL 8.2-10.2 [facility] Serum or plasma chloride judy surement (moles/volume)Ordered By: Ravi Arguello on 01-02-2023 Chloride [Moles/Vol] 106 mmol/L 95-114 [facility] Serum or plasma creatinine m easurement with calculation of estimated glomerular filtrOrdered By: Ravi Arguello on 01-02-2023 Creatinine and Glomerular filtration rate.predicted panel (S/P/Bld) 1.01 mg/dL 0.44-1.03 [facility] Serum or plasma glucose tammy urement (mass/volume)Ordered By: Ravi Arguello on 01-02-2023 Glucose [Mass/Vol] 123 mg/dL 70-100 [facility] Serum or plasma potassium me asurement (moles/volume)Ordered By: Ravi Arguello on 01-02-2023 Potassium [Moles/Vol] 3.2 mmol/L 3.5-5.1 [facility] Serum or plasma sodium measu rement (moles/volume)Ordered By: Ravi Arguello on 01-02-2023 Sodium [Moles/Vol] 142 mmol/L 136-146 [facility] Serum or plasma total biliru bin measurement (mass/volume)Ordered By: Ravi Arguello on 01-02-2023 Bilirubin [Mass/Vol] 0.8 mg/dL 0.3-1.2 [facility] Serum or plasma total carbon dioxide measurement (moles/volume)Ordered By: Ravi Arguello on 01-02-2023 CO2 [Moles/Vol] 22.8 mmol/L 22.0-30.0 [facility] Serum or plasma urea nitroge n measurement (mass/volume)Ordered By: Ravi Arguello on 01-02-2023 Urea nitrogen [Mass/Vol] 22 mg/dL 9-23 [facility] Specific gravity Auto test s trip (U) [Rel density]Ordered By: Ravi Arguello on 01-02-2023 Specific gravity (U) [Rel density] 1.036 1.001-1.03 0 [facility] Squamous epithelial cells de tection in urine sediment by light microscopyOrdered By: Ravi Arguello on 01-02-2023 Epithelial cells.squamous LM Ql (Urine sed) Innumerable [HPF] 0-2 [facility] Urine bacteria detection by automated methodOrdered By: Ravi Arguello on 01-02-2023 Bacteria Auto Ql (U) 3+ None Seen [facility] Urine clarity by refractomet ry automatedOrdered By: Ravi Arguello on 01-02-2023 Clarity Refractometry automated (U) Turbid Clear [facility] Urine culture routineOrdered By: Ravi Arguello on 01-02-2023 Bacteria identified Cx Nom (U) [facility] Urine glucose measurement by automated test strip (mass/volume)Ordered By: Ravi Arguello on 01-02-2023 Glucose Auto test strip (U) [Mass/Vol] Normal mg/dL Normal [facility] Urine hemoglobin detection b y automated test stripOrdered By: Ravi Arguello on 01-02-2023 Hemoglobin Auto test strip Ql (U) Negative Negative [facility] Urine leukocyte esterase det ection by automated test stripOrdered By: Ravi Arguello on 01-02-2023 Leukocyte esterase Auto test strip Ql (U) 3+ Negative [facility] Urobilinogen Auto test strip (U) [Mass/Vol]Ordered By: Ravi Arguello on 01-02-2023 Urobilinogen (U) [Mass/Vol] Normal mg/dL Normal [facility] WBC Auto (Bld) [#/Vol]Ordere d By: Ravi Arguello on 01-02-2023 WBC (Bld) [#/Vol] 14.1 10*3/uL 4.5-13.5 [facility] pH Auto test strip (U)Ordere d By: Ravi Arguello on 01-02-2023 pH (U) 6.0 [pH] 5.0-9.0 [facility] CULTURE URINEon 01-01-2023 CULTURE URINE Culture Observations : LIGHT GROWTH OF MIXED GENITAL JORI. NO POTENTIAL PATHOGENS SEEN. Normal [facility] Comment on above: Performed By: #### U RCX #### [facility] [address] [place] [address] Dr. Dacia Ackerman Covid-19 PCR ([facility])on SARS-CoV-2 (COVID-19) RNA JANAK+probe Ql (Unsp spec) Not detected Normal NOT DETECTED [facility] Comment on above: Result Comment: When [...] for this test is supported by the [employer]er of Health and Human Service's declaration that [...] used). Performed By: #### C VDTBH #### [facility] [address] [place] [address] Dr. Dacia Ackerman DRUG SCREEN RAPID (URINE)on 01-01-2023 AMP Negative Normal NEGATIVE [facility] Comment on above: Performed By: #### D RUGRPD #### [facility] [address] [place] [address] Dr. Dacia Ackerman BAR Negative Normal NEGATIVE [facility] Comment on above: Performed By: #### D RUGRPD #### [facility] [address] [place] [address] Dr. Dacia Ackerman BUP Negative Normal NEGATIVE [facility] Comment on above: Performed By: #### D RUGRPD #### [facility] [address] [place] [address] Dr. Dacia Ackerman BZO Negative Normal NEGATIVE [facility] Comment on above: Performed By: #### D RUGRPD #### [facility] [address] [address] [address] Dacia Ackerman MELINA Negative Normal NEGATIVE [facility] Comment on above: Performed By: #### D RUGRPD #### [facility] [address] [place] [address] Dr. Dacia Ackerman CUT-OFFS SEE BELOW Normal [facility] Comment on above: Result Comment: AMP (Amphetamine): 500ng/mL, BAR (Barbituates): 200 ng/mL, BZO (Benzodiazepines): 150 ng/mL, BUP (Buprenorphine): 10 ng/mL, MELINA (Cocaine): 150 ng/mL, mAMP (Methamphetamine): 500 ng/mL, MTD (Methadone): 200 ng/mL, OPI (Opiates): 100 ng/mL, OXY (Oxycodone): 100 ng/mL, PCP (Phencyclidine): 25 ng/mL, PPX (Propoxyphene): 300 ng/mL, THC (Cannabinoids): 50 ng/mL, TCA (Trycyclic Antidepressants): 300 ng/mL Performed By: #### D RUGRPD #### [facility] [address] [place] [address] Dr. Dacia Ackerman DRUG CUT HEADER DRUG CLASS TEST SYST EM CUT-OFF CONCENTRATIONS ARE FOLLOWS: Normal [facility] Comment on above: Performed By: #### D RUGRPD #### [facility] [address] [place] [address] Dr. Dacia Ackerman mAMP Negative Normal NEGATIVE [facility] Comment on above: Performed By: #### D RUGRPD #### [facility] [address] [place] [address] Dr. Dacia Ackerman MTD Negative Normal NEGATIVE [facility] Comment on above: Performed By: #### D RUGRPD #### [facility] [address] [place] [address] Dr. Dacia Ackerman OPI Negative Normal NEGATIVE [facility] Comment on above: Performed By: #### D RUGRPD #### [facility] [address] [place] [address] Dr. Dacia Ackerman OXY Negative Normal NEGATIVE [facility] Comment on above: Performed By: #### D RUGRPD #### [facility] [address] [address] [address] Dacia Ackerman PCP Negative Normal NEGATIVE [facility] Comment on above: Performed By: #### D RUGRPD #### [facility] [address] [place] [address] Dr. Dacia Ackerman PPX Negative Normal NEGATIVE [facility] Comment on above: Performed By: #### D RUGRPD #### [facility] [address] [place] [address] Dr. Dacia Ackerman TCA Negative Normal NEGATIVE [facility] Comment on above: Performed By: #### D RUGRPD #### [facility] [address] [place] [address] Dr. Dacia Ackerman THC Positive Abnormal NEGATIVE [facility] Comment on above: Performed By: #### D RUGRPD #### [facility] [address] [place] [address] Dr. Dacia Ackerman ER URINE PROFILEon 3 Bilirubin Ql (U) SMALL Abnormal NEGATIVE [facility] Comment on above: Performed By: #### P REGU, ERUR, UMICRO #### [facility] [address] [place] [address] Dr. Dacia Ackerman Clarity (U) CLEAR Normal CLEAR [facility] Comment on above: Performed By: #### P REGU, ERUR, UMICRO #### [facility] [address] [place] [address] Dr. Dacia Ackerman Color (U) YELLOW Normal YELLOW [facility] Comment on above: Performed By: #### P REGU, ERUR, UMICRO #### [facility] [address] [place] [address] Dr. Dacia OLIVAS A micrscopic examina tion will be performed if indicated. Normal [facility] Comment on above: Performed By: #### P REGU, ERUR, UMICRO #### [facility] [address] [place] [address] Dr. Dacia Ackerman Glucose Ql (U) Negative Normal NEGATIVE [facility] Comment on above: Performed By: #### P REGU, ERUR, UMICRO #### [facility] [address] [address] [address] Dacia Ackerman Hemoglobin Ql (U) Negative Normal NEGATIVE [facility] Comment on above: Performed By: #### P REGU, ERUR, UMICRO #### [facility] [address] [address] [address] Dacia Ackerman Ketones Ql (U) >=80 Abnormal NEGATIVE [facility] Comment on above: Performed By: #### P REGU, ERUR, UMICRO #### [facility] [address] [place] [address] Dr. Dacia Ackerman LEUKOCYTES TRACE Abnormal NEGATIVE [facility] Comment on above: Performed By: #### P REGU, ERUR, UMICRO #### [facility] [address] [place] [address] Dr. Dacia Ackerman Nitrite Ql (U) Negative Normal NEGATIVE [facility] Comment on above: Performed By: #### P REGU, ERUR, UMICRO #### [facility] [address] [place] [address] Dr. Dacia Ackerman pH (U) 7.5 [pH] Normal 5-9 [facility] Comment on above: Performed By: #### P REGU, ERUR, UMICRO #### [facility] [address] [address] [address] Dacia Ackerman Protein (U) [Mass/Vol] 100 mg/dL Abnormal NEGAT JOAO/ TRACE [facility] Comment on above: Performed By: #### P REGU, ERUR, UMICRO #### [facility] [address] [address] [address] Dacia Ackerman SPEC GRAVITY 1.020 Normal 1.005-<=1. 025 [facility] Comment on above: Performed By: #### P REGU, ERUR, UMICRO #### [facility] [address] [place] [address] Dr. Dacia Ackerman UR MICRO IND INDICATED Normal [facility] Comment on above: Performed By: #### P PAULA ELLINGTON UMICRO #### [facility] [address] [place] [address] Dr. Dacia Ackerman Urobilinogen Qn (U) 1.0 {Kaykay'U}/dL Normal 0.2 - 1. 0 [facility] Comment on above: Performed By: #### P PAULA ELLINGTON UMICRO #### [facility] [address] [place] [address] Dr. Dacia Ackerman INFLUENZA A AND B AGon 01-01 INFLUANEGH SEE BELOW Normal [facility] Comment on above: Result Comment: Nega tive for Flu A protein angiten. Infection due to Flu A cannot be ruled out. Flu A angiten in the sample may be below the detection limit of the test. Performed By: #### I NFLUAB #### [facility] [address] [place] [address] Dr. Dacia Ackerman INFLUBNEGH SEE BELOW Normal [facility] Comment on above: Result Comment: Nega tive for Flu B protein antigen. Infection due to Flu B cannot be ruled out. Flu B antigen in the sample may be below the detection limit of the test. Performed By: #### I NFLUAB #### [facility] [address] [place] [address] Dr. Dacia Ackerman INFLUENZA A AG Negative Normal NEGATIVE SEE COMMENT [facility] Comment on above: Performed By: #### I NFLUAB #### [facility] [address] [place] [address] Dr. Dacia Ackerman INFLUENZA B AG Negative Normal NEGATIVE SEE COMMENT [facility] Comment on above: Performed By: #### I NFLUAB #### [facility] [address] [place] [address] Dr. Dacia Ackerman URon 01-01-2023 , QUAL Negative Normal NEGATIVE [facility] Comment on above: Performed By: #### P PAULA ELLINGTON UMICRO #### [facility] [address] [place] [address] Dr. Dacia Ackerman URINE MICROSCOPIC ONLYon BACTERIA MODERATE Abnormal NONE SEEN [facility] Comment on above: Performed By: #### P REGU, ERUR, UMICRO #### [facility] [address] [place] [address] Dr. Dacia Ackerman Bacteria identified Cx Nom (U) INDICATED Normal [facility] Comment on above: Performed By: #### P REGU, ERUR, UMICRO #### [facility] [address] [place] [address] Dr. Dacia Ackerman CAST NONE SEEN Normal NONE SEEN [facility] Comment on above: Performed By: #### P REGU, ERUR, UMICRO #### [facility] [address] [place] [address] Dr. Dacia Ackerman Crystals LM Nom (Urine sed) NONE SEEN Normal NONE SEEN [facility] Comment on above: Performed By: #### P REGU, ERUR, UMICRO #### [facility] [address] [place] [address] Dr. Dacia Ackerman Epithelial cells LM Ql (Urine sed) MANY Abnormal NONE SEEN /RARE [facility] Comment on above: Performed By: #### P REGU, ERUR, UMICRO #### [facility] [address] [place] [address] Dr. Dacia Ackerman MUCOUS SMALL Abnormal NONE SEEN [facility] Comment on above: Performed By: #### P REGU, ERUR, UMICRO #### [facility] [address] [place] [address] Dr. Dacia Ackerman RBC NONE SEEN Abnormal 0-2 [facility] Comment on above: Performed By: #### P REGU, ERUR, UMICRO #### [facility] [address] [place] [address] Dr. Dacia Ackerman WBC 5-10 Abnormal NONE SEEN [facility] Comment on above: Performed By: #### P REGU, ERUR, UMICRO #### [facility] [address] [place] [address] Dr. Dacia Ackerman XR CHEST 1 Von [...] by: KIA ARVIZU Date: 2023-01-01 13:00 Normal [facility] Automated erythrocytes count in urine sediment (number/area)Ordered By: Federico Randolph on 12-31-2022 RBC Auto (Urine sed) [#/Area] 0-1 [HPF] 0-4 [facility] Automated leukocytes count i n urine sediment (number/area)Ordered By: Federico Randolph on 12-31-2022 WBC Auto (Urine sed) [#/Area] 20-49 [HPF] 0-4 [facility] Bacteria identified Cx Nom ( U)Ordered By: Federico Randolph on 12-31-2022 Urine culture routine Staphylococcus epidermidis [facility] Bilirubin Test strip Ql (U)O rdered By: Federico Randolph on 12-31-2022 Bilirubin Ql (U) Negative Negative [facility] COVID-19 SOFIAOrdered By: Deep Randolph on 12-31-2022 SARS-CoV+SARS-CoV-2 (COVID-19) Ag IA.rapid Ql (Resp) Negative Negative [facility] Casts typing in urine sedime nt by light microscopyOrdered By: Federico Randolph on 12-31-2022 Casts LM Nom (Urine sed) None seen [LPF] None Seen [facility] Color Auto (U)Ordered By: Deep Randolph on 12-31-2022 Color (U) Yellow Yellow [facility] HCG ( test) IA.rapi d Ql (U)Ordered By: Federico Randolph on 12-31-2022 HCG ( test) Ql (U) Negative [facility] Influenza virus A and B anti gen detection by immunoassayOrdered By: Federico Randolph on 12-31-2022 FLUAV+FLUBV Ag IA Ql (Unsp spec) [facility] Ketones Auto test strip (U) [Mass/Vol]Ordered By: Federico Randolph on 12-31-2022 Ketones (U) [Mass/Vol] 3+ Negative [facility] Nitrite Test strip Ql (U)Ord ered By: Federico Randolph on 12-31-2022 Nitrite Ql (U) Negative Negative [facility] No Panel InformationOrdered By: Federico Randolph on 12-31-2022 None seen [LPF] 0-8 [facility] Protein Auto test strip (U) [Mass/Vol]Ordered By: Federico Randolph on 12-31-2022 Protein (U) [Mass/Vol] 100 mg/dL Negative [facility] Specific gravity Auto test s trip (U) [Rel density]Ordered By: Federico Randolph on 12-31-2022 Specific gravity (U) [Rel density] 1.026 1.001-1.03 0 [facility] Squamous epithelial cells de tection in urine sediment by light microscopyOrdered By: Federico Randolph on 12-31-2022 Epithelial cells.squamous LM Ql (Urine sed) Innumerable [HPF] 0-2 [facility] Urine bacteria detection by automated methodOrdered By: Federico Randolph on 12-31-2022 Bacteria Auto Ql (U) 3+ None Seen [facility] Urine clarity by refractomet ry automatedOrdered By: Federico Rnadolph on 12-31-2022 Clarity Refractometry automated (U) Turbid Clear [facility] Urine glucose measurement by automated test strip (mass/volume)Ordered By: Federico Randolph on 12-31-2022 Glucose Auto test strip (U) [Mass/Vol] Normal mg/dL Normal [facility] Urine hemoglobin detection b y automated test stripOrdered By: Federico Randolph on 12-31-2022 Hemoglobin Auto test strip Ql (U) Negative Negative [facility] Urine leukocyte esterase det ection by automated test stripOrdered By: Federico Randolph on 12-31-2022 Leukocyte esterase Auto test strip Ql (U) 2+ Negative [facility] Urobilinogen Auto test strip (U) [Mass/Vol]Ordered By: Federico Randolph on 12-31-2022 Urobilinogen (U) [Mass/Vol] Normal mg/dL Normal [facility] pH Auto test strip (U)Ordere d By: Federico Randolph on 12-31-2022 pH (U) [pH] 5.0-9.0 [facility] Amphetamine Screen Ql (U)Ord ered By: Corey Newberry on 11-09-2022 Amphetamines Ql (U) Negative Negative [facility] Barbiturates [Presence] in U rineOrdered By: Corey Newberry on 11-09-2022 Barbiturates Ql (U) Negative Negative [facility] Basophils Auto (Bld) [#/Vol] Ordered By: Corey Newberry on 11-09-2022 Basophils (Bld) [#/Vol] 0.0 10*3/uL 0.0-0.1 [facility] Basophils/100 WBC Auto (Bld) Ordered By: Corey Newberry on 11-09-2022 Basophils/100 WBC (Bld) 0.3 % . [facility] Benzodiazepines [Presence] i n UrineOrdered By: Corey Newberry on 11-09-2022 Benzodiazepines Ql (U) Negative [facility] Bil[facility] Test strip Ql (U)O rdered By: Corey Newberyr on 11-09-2022 Bilirubin Ql (U) Negative Negative [facility] Body fluid albumin measureme nt (mass/volume)Ordered By: Corey Newberry on 11-09-2022 Albumin (Body fld) [Mass/Vol] 4.2 g/dL 3.2-5.5 [facility] [facility] Cannabinoids [Presence] in U rine by Screen methodOrdered By: Corey Newberry on 11-09-2022 Cannabinoids Screen Ql (U) Positive Negative [facility] Color Auto (U)Ordered By: Nazia Newberry on 11-09-2022 Color (U) Yellow Yellow [facility] Eosinophils Auto (Bld) [#/Vo l]Ordered By: Corey Newberry on 11-09-2022 Eosinophils (Bld) [#/Vol] 0.1 10*3/uL 0.0-0.7 [facility] Eosinophils/100 WBC Auto (Bl d)Ordered By: Corey Newberry on 11-09-2022 Eosinophils/100 WBC (Bld) 0.8 % . [facility] Erythrocyte distribution wid th Auto (RBC) [Ratio]Ordered By: Corey Newberry on 11-09-2022 Erythrocyte distribution width (RBC) [Ratio] 13.8 % 11.9-15.3 [facility] Estimated glomerular filtrat ion rate (GFR) non- AmericanOrdered By: Corey Newberry on 11-09-2022 GFR/1.73 sq M.predicted among non-blacks MDRD (S/P/Bld) [Vol rate/Area] > 60 mL/Min [facility] Globulin Calc (S) [Mass/Vol] Ordered By: Corey Newberry on 11-09-2022 Globulin (S) [Mass/Vol] 2.4 g/dL [facility] HCG ( test) IA.rapi d Ql (U)Ordered By: Corey Newberry on 11-09-2022 HCG ( test) Ql (U) Negative [facility] Hematocrit Auto (Bld) [Volum e fraction]Ordered By: Corey Newberry on 11-09-2022 Hematocrit (Bld) [Volume fraction] 41.0 % 36.0-46.0 [facility] Hemoglobin [Mass/volume] in BloodOrdered By: Corey Newberry on 11-09-2022 Hemoglobin (Bld) [Mass/Vol] 13.4 g/dL 12.0-16.0 [facility] Ketones Auto test strip (U) [Mass/Vol]Ordered By: Corey Newberry on 11-09-2022 Ketones (U) [Mass/Vol] Negative Negative [facility] Leukocytes [#/volume] correc venkata for nucleated erythrocytes in Blood by Automated counOrdered By: Corye Newberry on 11-09-2022 WBC corrected for nucl RBC Auto (Bld) [#/Vol] 11.7 10*3/uL 4.5-13.5 [facility] Lymphocytes Auto (Bld) [#/Vo l]Ordered By: Corey Newberry on 11-09-2022 Lymphocytes (Bld) [#/Vol] 1.4 10*3/uL 1.20-4.8 [facility] Lymphocytes/100 WBC Auto (Bl d)Ordered By: Corey Newberry on 11-09-2022 Lymphocytes/100 WBC (Bld) 12.1 % . [facility] MCH Auto (RBC) [Entitic mass ]Ordered By: Corey Newberry on 11-09-2022 MCH (RBC) [Entitic mass] 28.1 pg 25.0-35.0 [facility] MCHC Auto (RBC) [Mass/Vol]Or dered By: Corey Newberry on 11-09-2022 MCHC (RBC) [Mass/Vol] 32.8 g/dL 31.0-37.0 [facility] MCV Auto (RBC) [Entitic vol] Ordered By: Corey Newberry on 11-09-2022 MCV (RBC) [Entitic vol] 85.7 fL 78-102 [facility] Monocyte distribution width [Entitic volume] in Blood by AutomatedOrdered By: Corey Newberry on 11-09-2022 Monocyte distribution width Auto (Bld) [Entitic vol] 16.08 % 0.00-20.00 [facility] Monocytes Auto (Bld) [#/Vol] Ordered By: Corey Newberry on 11-09-2022 Monocytes (Bld) [#/Vol] 0.5 10*3/uL 0.1-1.00 [facility] Monocytes/100 WBC Auto (Bld) Ordered By: Corey Newberry on 11-09-2022 Monocytes/100 WBC (Bld) 4.7 % . [facility] Neutrophils Auto (Bld) [#/Vo l]Ordered By: Corey Newberry on 11-09-2022 Neutrophils (Bld) [#/Vol] 9.6 10*3/uL 1.2-7.7 [facility] Neutrophils/100 WBC Auto (Bl d)Ordered By: Corey Newberry on 11-09-2022 Neutrophils/100 WBC (Bld) 82.1 % . [facility] Nitrite Test strip Ql (U)Ord ered By: Corey Newberry on 11-09-2022 Nitrite Ql (U) Negative Negative [facility] No Panel InformationOrdered By: Corey Newberry on 11-09-2022 Negative Negative [facility] > 60 mL/Min [facility] 118.86 [facility] Nucleated erythrocytes [Pres ence] in Blood by Automated countOrdered By: Corey Newberry on 11-09-2022 Nucleated RBC Auto Ql (Bld) 0.1 /100{WBC} 0-0.5 [facility] Phencyclidine Screen Ql (U)O rdered By: Corey Newberry on 11-09-2022 Phencyclidine Ql (U) Negative Negative [facility] Platelet mean volume Auto (B ld) [Entitic vol]Ordered By: Corey Newberry on 11-09-2022 Platelet mean volume (Bld) [Entitic vol] 8.5 fL 6.3-10.7 [facility] Platelets Auto (Bld) [#/Vol] Ordered By: Corey Newberry on 11-09-2022 Platelets (Bld) [#/Vol] 274 10*3/uL 150-450 [facility] Protein Auto test strip (U) [Mass/Vol]Ordered By: Corey Newberry on 11-09-2022 Protein (U) [Mass/Vol] Negative Negative [facility] Protein [Mass/volume] in Ser um or PlasmaOrdered By: Corey Newberry on 11-09-2022 Protein [Mass/Vol] 6.6 g/dL 6.1-7.9 [facility] RBC Auto (Bld) [#/Vol]Ordere d By: Corey Newberry on 11-09-2022 RBC (Bld) [#/Vol] 4.78 10*6/uL 4.10-5.10 [facility] Serum or plasma alanine florez otransferase measurement without P-5'-P (enzymatic activiOrdered By: Corey Newberry on 11-09-2022 ALT No additional P-5'-P [Catalytic activity/Vol] 67 U/L 10-60 [facility] Serum or plasma albumin/glob ulin mass ratioOrdered By: Corey Newberry on 11-09-2022 Albumin/Globulin [Mass ratio] 1.8 {ratio} [facility] Serum or plasma alkaline justin sphatase measurement (enzymatic activity/volume)Ordered By: Corey Newberry on 11-09-2022 ALP [Catalytic activity/Vol] 59 U/L 32-92 [facility] Serum or plasma anion gap de terminationOrdered By: Corey Newberry on 11-09-2022 Anion gap [Moles/Vol] 19.7 mmol/L 6.0-15.0 [facility] Serum or plasma aspartate am inotransferase measurement (enzymatic activity/volume)Ordered By: Corey Newberry on 11-09-2022 AST [Catalytic activity/Vol] 48 U/L 10-42 [facility] Serum or plasma calcium tammy urement (mass/volume)Ordered By: Corey Newberry on 11-09-2022 Calcium [Mass/Vol] 9.6 mg/dL 8.2-10.2 [facility] Serum or plasma chloride judy surement (moles/volume)Ordered By: Corey Newberry on 11-09-2022 Chloride [Moles/Vol] 98 mmol/L 95-114 [facility] Serum or plasma creatinine m easurement with calculation of estimated glomerular filtrOrdered By: Corey Newberry on 11-09-2022 Creatinine and Glomerular filtration rate.predicted panel (S/P/Bld) 0.76 mg/dL 0.44-1.03 [facility] Serum or plasma glucose tammy urement (mass/volume)Ordered By: Corey Newberry on 11-09-2022 Glucose [Mass/Vol] 110 mg/dL 70-100 [facility] Serum or plasma potassium me asurement (moles/volume)Ordered By: Corey Newberry on 11-09-2022 Potassium [Moles/Vol] 3.4 mmol/L 3.5-5.1 [facility] Serum or plasma sodium measu rement (moles/volume)Ordered By: Corey Newberry on 11-09-2022 Sodium [Moles/Vol] 137 mmol/L 136-146 [facility] Serum or plasma total biliru bin measurement (mass/volume)Ordered By: Corey Newberry on 11-09-2022 Bilirubin [Mass/Vol] 0.5 mg/dL 0.3-1.2 [facility] Serum or plasma total carbon dioxide measurement (moles/volume)Ordered By: Corey Newberry on 11-09-2022 CO2 [Moles/Vol] 22.7 mmol/L 22.0-30.0 [facility] Serum or plasma urea nitroge n measurement (mass/volume)Ordered By: Corey Newberry on 11-09-2022 Urea nitrogen [Mass/Vol] 3 mg/dL 9-23 [facility] Specific gravity Auto test s trip (U) [Rel density]Ordered By: Corey Newberry on 11-09-2022 Specific gravity (U) [Rel density] 1.009 1.001-1.03 0 [facility] Urine clarity by refractomet ry automatedOrdered By: Corey Newberry on 11-09-2022 Clarity Refractometry automated (U) Clear Clear [facility] Urine cocaine detectionOrder ed By: Corey Newberry on 11-09-2022 Cocaine Ql (U) Negative Negative [facility] Urine glucose measurement by automated test strip (mass/volume)Ordered By: Corey Newberry on 11-09-2022 Glucose Auto test strip (U) [Mass/Vol] Normal mg/dL Normal [facility] Urine hemoglobin detection b y automated test stripOrdered By: Corey Newberry on 11-09-2022 Hemoglobin Auto test strip Ql (U) Negative Negative [facility] Urine leukocyte esterase det ection by automated test stripOrdered By: Corey Newberry on 11-09-2022 Leukocyte esterase Auto test strip Ql (U) Negative Negative [facility] Urobilinogen Auto test strip (U) [Mass/Vol]Ordered By: Corey Newberry on 11-09-2022 Urobilinogen (U) [Mass/Vol] Normal mg/dL Normal [facility] WBC Auto (Bld) [#/Vol]Ordere d By: Corey Newberry on 11-09-2022 WBC (Bld) [#/Vol] 11.7 10*3/uL 4.5-13.5 [facility] pH Auto test strip (U)Ordere d By: Corey Newberry on 11-09-2022 pH (U) [pH] 5.0-9.0 [facility] Albumin [Mass/volume] in Ser um or PlasmaOrdered By: Art Bianchi on 11-07-2022 Albumin [Mass/Vol] 4.6 g/dL 3.2-5.5 [facility] Automated erythrocytes count in urine sediment (number/area)Ordered By: Art Bianchi on 11-07-2022 RBC Auto (Urine sed) [#/Area] 0-1 [HPF] 0-4 [facility] Automated leukocytes count i n urine sediment (number/area)Ordered By: Art Bianchi on 11-07-2022 WBC Auto (Urine sed) [#/Area] 3-4 [HPF] 0-4 [facility] Basophils Auto (Bld) [#/Vol] Ordered By: Art Bianchi on 11-07-2022 Basophils (Bld) [#/Vol] 0.1 10*3/uL 0.0-0.1 [facility] Basophils/100 WBC Auto (Bld) Ordered By: Art Bianchi on 11-07-2022 Basophils/100 WBC (Bld) 1.0 % . [facility] Bilirubin Test strip Ql (U)O rdered By: Art Bianchi on 11-07-2022 Bilirubin Ql (U) Negative Negative [facility] Color Auto (U)Ordered By: Adrian red Tash on 11-07-2022 Color (U) Yellow Yellow [facility] Eosinophils Auto (Bld) [#/Vo l]Ordered By: Art Bianchi on 11-07-2022 Eosinophils (Bld) [#/Vol] 0.1 10*3/uL 0.0-0.7 [facility] Eosinophils/100 WBC Auto (Bl d)Ordered By: Art Bianchi on 11-07-2022 Eosinophils/100 WBC (Bld) 1.2 % . [facility] Erythrocyte distribution wid th Auto (RBC) [Ratio]Ordered By: Art Bianchi on 11-07-2022 Erythrocyte distribution width (RBC) [Ratio] 14.0 % 11.9-15.3 [facility] Estimated glomerular filtrat ion rate (GFR) non- AmericanOrdered By: Art Bianchi on 11-07-2022 GFR/1.73 sq M.predicted among non-blacks MDRD (S/P/Bld) [Vol rate/Area] > 60 mL/Min [facility] Globulin Calc (S) [Mass/Vol] Ordered By: Art Bianchi on 11-07-2022 Globulin (S) [Mass/Vol] 2.7 g/dL [facility] HCG ( test) IA.rapi d Ql (U)Ordered By: Art Bianchi on 11-07-2022 HCG ( test) Ql (U) Negative [facility] Hematocrit Auto (Bld) [Volum e fraction]Ordered By: Art Bianchi on 11-07-2022 Hematocrit (Bld) [Volume fraction] 43.2 % 36.0-46.0 [facility] Hemoglobin [Mass/volume] in BloodOrdered By: Art Bianchi on 11-07-2022 Hemoglobin (Bld) [Mass/Vol] 14.8 g/dL 12.0-16.0 [facility] Ketones Auto test strip (U) [Mass/Vol]Ordered By: Art Bianchi on 11-07-2022 Ketones (U) [Mass/Vol] 1+ Negative [facility] Leukocytes [#/volume] correc venkata for nucleated erythrocytes in Blood by Automated counOrdered By: Art Bianchi on 11-07-2022 WBC corrected for nucl RBC Auto (Bld) [#/Vol] 10.3 10*3/uL 4.5-13.5 [facility] Lymphocytes Auto (Bld) [#/Vo l]Ordered By: Art Bianchi on 11-07-2022 Lymphocytes (Bld) [#/Vol] 2.1 10*3/uL 1.20-4.8 [facility] Lymphocytes/100 WBC Auto (Bl d)Ordered By: Art Bianchi on 11-07-2022 Lymphocytes/100 WBC (Bld) 20.8 % . [facility] MCH Auto (RBC) [Entitic mass ]Ordered By: Art Bianchi on 11-07-2022 MCH (RBC) [Entitic mass] 28.8 pg 25.0-35.0 [facility] MCHC Auto (RBC) [Mass/Vol]Or dered By: Art Bianchi on 11-07-2022 MCHC (RBC) [Mass/Vol] 34.3 g/dL 31.0-37.0 [facility] MCV Auto (RBC) [Entitic vol] Ordered By: Art Bianchi on 11-07-2022 MCV (RBC) [Entitic vol] 84.1 fL 78-102 [facility] Monocyte distribution width [Entitic volume] in Blood by AutomatedOrdered By: Art Bianchi on 11-07-2022 Monocyte distribution width Auto (Bld) [Entitic vol] 17.07 % 0.00-20.00 [facility] Monocytes Auto (Bld) [#/Vol] Ordered By: Art Bianchi on 11-07-2022 Monocytes (Bld) [#/Vol] 0.8 10*3/uL 0.1-1.00 [facility] Monocytes/100 WBC Auto (Bld) Ordered By: Art Bianchi on 11-07-2022 Monocytes/100 WBC (Bld) 8.1 % . [facility] Neutrophils Auto (Bld) [#/Vo l]Ordered By: Art Bianchi on 11-07-2022 Neutrophils (Bld) [#/Vol] 7.1 10*3/uL 1.2-7.7 [facility] Neutrophils/100 WBC Auto (Bl d)Ordered By: Art Bianchi on 11-07-2022 Neutrophils/100 WBC (Bld) 68.9 % . [facility] Nitrite Test strip Ql (U)Ord ered By: Art Bianchi on 11-07-2022 Nitrite Ql (U) Negative Negative [facility] No Panel InformationOrdered By: Art Bianchi on 11-07-2022 0-8 [LPF] 0-8 [facility] > 60 mL/Min [facility] 43.0 U/L 22-51 [facility] 104.35 [facility] Nucleated erythrocytes [Pres ence] in Blood by Automated countOrdered By: Art Bianchi on 11-07-2022 Nucleated RBC Auto Ql (Bld) 0.3 /100{WBC} 0-0.5 [facility] Platelet mean volume Auto (B ld) [Entitic vol]Ordered By: Art Bianchi on 11-07-2022 Platelet mean volume (Bld) [Entitic vol] 8.4 fL 6.3-10.7 [facility] Platelets Auto (Bld) [#/Vol] Ordered By: Art Bianchi on 11-07-2022 Platelets (Bld) [#/Vol] 308 10*3/uL 150-450 [facility] Protein Auto test strip (U) [Mass/Vol]Ordered By: Art Bianchi on 11-07-2022 Protein (U) [Mass/Vol] Trace mg/dL Negative [facility] Protein [Mass/volume] in Ser um or PlasmaOrdered By: Art Bianchi on 11-07-2022 Protein [Mass/Vol] 7.3 g/dL 6.1-7.9 [facility] RBC Auto (Bld) [#/Vol]Ordere d By: Art Bianchi on 11-07-2022 RBC (Bld) [#/Vol] 5.14 10*6/uL 4.10-5.10 [facility] Serum or plasma alanine florez otransferase measurement without P-5'-P (enzymatic activiOrdered By: Art Bianchi on 11-07-2022 ALT No additional P-5'-P [Catalytic activity/Vol] 24 U/L 10-60 [facility] Serum or plasma albumin/glob ulin mass ratioOrdered By: Art Bianchi on 11-07-2022 Albumin/Globulin [Mass ratio] 1.7 {ratio} [facility] Serum or plasma alkaline justin sphatase measurement (enzymatic activity/volume)Ordered By: Art Bianchi on 11-07-2022 ALP [Catalytic activity/Vol] 60 U/L 32-92 [facility] Serum or plasma anion gap de terminationOrdered By: Art Bianchi on 11-07-2022 Anion gap [Moles/Vol] 12.2 mmol/L 6.0-15.0 [facility] Serum or plasma aspartate am inotransferase measurement (enzymatic activity/volume)Ordered By: Art Bianchi on 11-07-2022 AST [Catalytic activity/Vol] 25 U/L 10-42 [facility] Serum or plasma calcium tammy urement (mass/volume)Ordered By: Art Bianchi on 11-07-2022 Calcium [Mass/Vol] 9.6 mg/dL 8.2-10.2 [facility] Serum or plasma chloride judy surement (moles/volume)Ordered By: Art Bianchi on 11-07-2022 Chloride [Moles/Vol] 98 mmol/L 95-114 [facility] Serum or plasma creatinine m easurement with calculation of estimated glomerular filtrOrdered By: Art Bianchi on 11-07-2022 Creatinine and Glomerular filtration rate.predicted panel (S/P/Bld) 0.84 mg/dL 0.44-1.03 [facility] Serum or plasma glucose tammy urement (mass/volume)Ordered By: Art Bianchi on 11-07-2022 Glucose [Mass/Vol] 106 mg/dL 70-100 [facility] Serum or plasma potassium me asurement (moles/volume)Ordered By: Art Bianchi on 11-07-2022 Potassium [Moles/Vol] 3.2 mmol/L 3.5-5.1 [facility] Serum or plasma sodium measu rement (moles/volume)Ordered By: Art Bianchi on 11-07-2022 Sodium [Moles/Vol] 132 mmol/L 136-146 [facility] Serum or plasma total biliru bin measurement (mass/volume)Ordered By: Art Bianchi on 11-07-2022 Bilirubin [Mass/Vol] 0.8 mg/dL 0.3-1.2 [facility] Serum or plasma total carbon dioxide measurement (moles/volume)Ordered By: Art Bianchi on 11-07-2022 CO2 [Moles/Vol] 25.0 mmol/L 22.0-30.0 [facility] Serum or plasma urea nitroge n measurement (mass/volume)Ordered By: Art Bianchi on 11-07-2022 Urea nitrogen [Mass/Vol] 6 mg/dL 9- [facility] Specific gravity Auto test s trip (U) [Rel density]Ordered By: Art Bianchi on 11-07-2022 Specific gravity (U) [Rel density] 1.014 1.001-1.03 0 [facility] Squamous epithelial cells de tection in urine sediment by light microscopyOrdered By: Art Bianchi on 11-07-2022 Epithelial cells.squamous LM Ql (Urine sed) 5-9 [HPF] 0-2 [facility] Urine bacteria detection by automated methodOrdered By: Art Bianchi on 11-07-2022 Bacteria Auto Ql (U) None seen None Seen [facility] Urine clarity by refractomet ry automatedOrdered By: Art Bianchi on 11-07-2022 Clarity Refractometry automated (U) Clear Clear [facility] Urine glucose measurement by automated test strip (mass/volume)Ordered By: Art Bianchi on 11-07-2022 Glucose Auto test strip (U) [Mass/Vol] Normal mg/dL Normal [facility] Urine hemoglobin detection b y automated test stripOrdered By: Art Bianchi on 11-07-2022 Hemoglobin Auto test strip Ql (U) Negative Negative [facility] Urine leukocyte esterase det ection by automated test stripOrdered By: Art Bianchi on 11-07-2022 Leukocyte esterase Auto test strip Ql (U) Negative Negative [facility] Urobilinogen Auto test strip (U) [Mass/Vol]Ordered By: Art Bianchi on 11-07-2022 Urobilinogen (U) [Mass/Vol] Normal mg/dL Normal [facility] WBC Auto (Bld) [#/Vol]Ordere d By: Art Bianchi on 11-07-2022 WBC (Bld) [#/Vol] 10.3 10*3/uL 4.5-13.5 [facility] pH Auto test strip (U)Ordere d By: Art Bianchi on 11-07-2022 pH (U) 8.5 [pH] 5.0-9.0 [facility] Urine culture routineOrdered By: Colten Fry on 11-04-2022 Bacteria identified Cx Nom (U) 2 Days [facility] Albumin [Mass/volume] in Ser um or PlasmaOrdered By: Colten Fry on 11-02-2022 Albumin [Mass/Vol] 4.8 g/dL 3.2-5.5 [facility] Amphetamine Screen Ql (U)Ord ered By: Colten Fry on 11-02-2022 Amphetamines Ql (U) Negative Negative [facility] Automated erythrocytes count in urine sediment (number/area)Ordered By: Colten Fry on 11-02-2022 RBC Auto (Urine sed) [#/Area] 20-49 [HPF] 0-4 [facility] Automated leukocytes count i n urine sediment (number/area)Ordered By: Colten Fry on 11-02-2022 WBC Auto (Urine sed) [#/Area] 5-9 [HPF] 0-4 [facility] Barbiturates [Presence] in U rineOrdered By: Colten Fry on 11-02-2022 Barbiturates Ql (U) Negative Negative [facility] Basophils Auto (Bld) [#/Vol] Ordered By: Colten Fry on 11-02-2022 Basophils (Bld) [#/Vol] 0.1 10*3/uL 0.0-0.1 [facility] Basophils/100 WBC Auto (Bld) Ordered By: Colten Fry on 11-02-2022 Basophils/100 WBC (Bld) 0.5 % . [facility] Benzodiazepines [Presence] i n UrineOrdered By: Colten Fry on 11-02-2022 Benzodiazepines Ql (U) Negative Negative [facility] Bilirubin Test strip Ql (U)O rdered By: Colten Fry on 11-02-2022 Bilirubin Ql (U) Negative Negative [facility] Cannabinoids [Presence] in U rine by Screen methodOrdered By: Colten Fry on 11-02-2022 Cannabinoids Screen Ql (U) Positive Negative [facility] Color Auto (U)Ordered By: Vida Fry on 11-02-2022 Color (U) Yellow Yellow [facility] Eosinophils Auto (Bld) [#/Vo l]Ordered By: Colten Fry on 11-02-2022 Eosinophils (Bld) [#/Vol] 0.3 10*3/uL 0.0-0.7 [facility] Eosinophils/100 WBC Auto (Bl d)Ordered By: Colten Fry on 11-02-2022 Eosinophils/100 WBC (Bld) 2.1 % . [facility] Erythrocyte distribution wid th Auto (RBC) [Ratio]Ordered By: Colten Fry on 11-02-2022 Erythrocyte distribution width (RBC) [Ratio] 13.7 % 11.9-15.3 [facility] Estimated glomerular filtrat ion rate (GFR) non- AmericanOrdered By: Colten Fry on 11-02-2022 GFR/1.73 sq M.predicted among non-blacks MDRD (S/P/Bld) [Vol rate/Area] > 60 mL/Min [facility] Globulin Calc (S) [Mass/Vol] Ordered By: Colten Fry on 11-02-2022 Globulin (S) [Mass/Vol] 3.1 g/dL [facility] HCG ( test) IA.rapi d Ql (U)Ordered By: Colten Fry on 11-02-2022 HCG ( test) Ql (U) Negative [facility] Hematocrit Auto (Bld) [Volum e fraction]Ordered By: Colten Fry on 11-02-2022 Hematocrit (Bld) [Volume fraction] 45.3 % 36.0-46.0 [facility] Hemoglobin [Mass/volume] in BloodOrdered By: Colten Fry on 11-02-2022 Hemoglobin (Bld) [Mass/Vol] 15.4 g/dL 12.0-16.0 [facility] Ketones Auto test strip (U) [Mass/Vol]Ordered By: Colten Fry on 11-02-2022 Ketones (U) [Mass/Vol] 3+ [facility] Leukocytes [#/volume] correc venkata for nucleated erythrocytes in Blood by Automated counOrdered By: Colten Fry on 11-02-2022 WBC corrected for nucl RBC Auto (Bld) [#/Vol] 11.7 10*3/uL 4.5-13.5 [facility] Lymphocytes Auto (Bld) [#/Vo l]Ordered By: Colten Fry on 11-02-2022 Lymphocytes (Bld) [#/Vol] 2.3 10*3/uL 1.20-4.8 [facility] Lymphocytes/100 WBC Auto (Bl d)Ordered By: Colten Fry on 11-02-2022 Lymphocytes/100 WBC (Bld) 19.6 % . [facility] MCH Auto (RBC) [Entitic mass ]Ordered By: Colten Fry on 11-02-2022 MCH (RBC) [Entitic mass] 28.4 pg 25.0-35.0 [facility] MCHC Auto (RBC) [Mass/Vol]Or dered By: Colten Fry on 11-02-2022 MCHC (RBC) [Mass/Vol] 34.0 g/dL 31.0-37.0 [facility] MCV Auto (RBC) [Entitic vol] Ordered By: Colten Fry on 11-02-2022 MCV (RBC) [Entitic vol] 83.3 fL 78-102 [facility] Monocytes Auto (Bld) [#/Vol] Ordered By: Colten Fry on 11-02-2022 Monocytes (Bld) [#/Vol] 1.0 10*3/uL 0.1-1.00 [facility] Monocytes/100 WBC Auto (Bld) Ordered By: Colten Fry on 11-02-2022 Monocytes/100 WBC (Bld) 8.5 % . [facility] Neutrophils Auto (Bld) [#/Vo l]Ordered By: Colten Fry on 11-02-2022 Neutrophils (Bld) [#/Vol] 8.1 10*3/uL 1.2-7.7 [facility] Neutrophils/100 WBC Auto (Bl d)Ordered By: Colten Fry on 11-02-2022 Neutrophils/100 WBC (Bld) 69.3 % . [facility] Nitrite Test strip Ql (U)Ord ered By: Colten Fry on 11-02-2022 Nitrite Ql (U) Negative Negative [facility] No Panel InformationOrdered By: Colten Fry on 11-02-2022 9-19 [LPF] 0-8 [facility] Negative Negative [facility] > 60 mL/Min [facility] [facility] 100.26 [facility] No Panel InformationOrdered By: Robert Henley on 11-02-2022 2.6 mg/dL 1.6-2.6 [facility] Nucleated erythrocytes [Pres ence] in Blood by Automated countOrdered By: Colten Fry on 11-02-2022 Nucleated RBC Auto Ql (Bld) 0.1 /100{WBC} 0-0.5 [facility] Phencyclidine Screen Ql (U)O rdered By: Colten Fry on 11-02-2022 Phencyclidine Ql (U) Negative Negative [facility] Platelet mean volume Auto (B ld) [Entitic vol]Ordered By: Colten Fry on 11-02-2022 Platelet mean volume (Bld) [Entitic vol] 7.9 fL 6.3-10.7 [facility] Platelets Auto (Bld) [#/Vol] Ordered By: Colten Fry on 11-02-2022 Platelets (Bld) [#/Vol] 292 10*3/uL 150-450 [facility] Protein Auto test strip (U) [Mass/Vol]Ordered By: Colten Fry on 11-02-2022 Protein (U) [Mass/Vol] 30 mg/dL Negative [facility] Protein [Mass/volume] in Ser um or PlasmaOrdered By: Colten Fry on 11-02-2022 Protein [Mass/Vol] 7.9 g/dL 6.1-7.9 [facility] RBC Auto (Bld) [#/Vol]Ordere d By: Colten Fry on 11-02-2022 RBC (Bld) [#/Vol] 5.43 10*6/uL 4.10-5.10 [facility] Serum or plasma alanine florez otransferase measurement without P-5'-P (enzymatic activiOrdered By: Colten Fry on 11-02-2022 ALT No additional P-5'-P [Catalytic activity/Vol] 20 U/L 10-60 [facility] Serum or plasma albumin/glob ulin mass ratioOrdered By: Colten Fry on 11-02-2022 Albumin/Globulin [Mass ratio] 1.5 {ratio} [facility] Serum or plasma alkaline justin sphatase measurement (enzymatic activity/volume)Ordered By: Colten Fry on 11-02-2022 ALP [Catalytic activity/Vol] 65 U/L 32-92 [facility] Serum or plasma anion gap de terminationOrdered By: Colten Fry on 11-02-2022 Anion gap [Moles/Vol] 14.6 mmol/L 6.0-15.0 [facility] Serum or plasma aspartate am inotransferase measurement (enzymatic activity/volume)Ordered By: Colten Fry on 11-02-2022 AST [Catalytic activity/Vol] 19 U/L 10-42 [facility] Serum or plasma calcium tammy urement (mass/volume)Ordered By: Colten Fry on 11-02-2022 Calcium [Mass/Vol] 9.6 mg/dL 8.2-10.2 [facility] Serum or plasma chloride judy surement (moles/volume)Ordered By: Colten Fry on 11-02-2022 Chloride [Moles/Vol] 95 mmol/L 95-114 [facility] Serum or plasma creatinine m easurement with calculation of estimated glomerular filtrOrdered By: Colten Fry on 11-02-2022 Creatinine and Glomerular filtration rate.predicted panel (S/P/Bld) 0.88 mg/dL 0.44-1.03 [facility] Serum or plasma glucose tammy urement (mass/volume)Ordered By: Colten Fry on 11-02-2022 Glucose [Mass/Vol] 95 mg/dL 70-100 [facility] Serum or plasma potassium me asurement (moles/volume)Ordered By: Colten Fry on 11-02-2022 Potassium [Moles/Vol] 2.9 mmol/L 3.5-5.1 [facility] Serum or plasma sodium measu rement (moles/volume)Ordered By: Colten Fry on 11-02-2022 Sodium [Moles/Vol] 134 mmol/L 136-146 [facility] Serum or plasma total biliru bin measurement (mass/volume)Ordered By: Colten Fry on 11-02-2022 Bilirubin [Mass/Vol] 1.8 mg/dL 0.3-1.2 [facility] Serum or plasma total carbon dioxide measurement (moles/volume)Ordered By: Colten Fry on 11-02-2022 CO2 [Moles/Vol] 27.3 mmol/L 22.0-30.0 [facility] Serum or plasma urea nitroge n measurement (mass/volume)Ordered By: Colten Fry on 11-02-2022 Urea nitrogen [Mass/Vol] 24 mg/dL 9-23 [facility] Specific gravity Auto test s trip (U) [Rel density]Ordered By: Colten Fry on 11-02-2022 Specific gravity (U) [Rel density] 1.025 1.001-1.03 0 [facility] Squamous epithelial cells de tection in urine sediment by light microscopyOrdered By: Coltne Fry on 11-02-2022 Epithelial cells.squamous LM Ql (Urine sed) 10-19 [HPF] 0-2 [facility] Urine bacteria detection by automated methodOrdered By: Colten Fry on 11-02-2022 Bacteria Auto Ql (U) None seen None Seen [facility] Urine clarity by refractomet ry automatedOrdered By: Colten Fry on 11-02-2022 Clarity Refractometry automated (U) Cloudy Clear [facility] Urine cocaine detectionOrder ed By: Colten Fry on 11-02-2022 Cocaine Ql (U) Negative Negative [facility] Urine culture routineOrdered By: Colten Fry on 11-02-2022 Bacteria identified Cx Nom (U) 2 Days [facility] Urine culture routineOrdered By: Art Bianchi on 11-02-2022 Bacteria identified Cx Nom (U) 2 Days [facility] Urine glucose measurement by automated test strip (mass/volume)Ordered By: Colten Fry on 11-02-2022 Glucose Auto test strip (U) [Mass/Vol] Normal mg/dL Normal [facility] Urine hemoglobin detection b y automated test stripOrdered By: Colten Fry on 11-02-2022 Hemoglobin Auto test strip Ql (U) 3+ Negative [facility] Urine leukocyte esterase det ection by automated test stripOrdered By: Colten Fry on 11-02-2022 Leukocyte esterase Auto test strip Ql (U) 2+ Negative [facility] Urobilinogen Auto test strip (U) [Mass/Vol]Ordered By: Colten Fry on 11-02-2022 Urobilinogen (U) [Mass/Vol] Normal mg/dL Normal [facility] WBC Auto (Bld) [#/Vol]Ordere d By: Colten Fry on 11-02-2022 WBC (Bld) [#/Vol] 11.7 10*3/uL 4.5-13.5 [facility] pH Auto test strip (U)Ordere d By: Colten Fry on 11-02-2022 pH (U) 7.0 [pH] 5.0-9.0 [facility] Albumin [Mass/volume] in Ser um or PlasmaOrdered By: Art Bianchi on 10-31-2022 Albumin [Mass/Vol] 5.1 g/dL 3.2-5.5 [facility] Automated erythrocytes count in urine sediment (number/area)Ordered By: Art Bianchi on 10-31-2022 RBC Auto (Urine sed) [#/Area] Innumerable [HPF] 0-4 [facility] Automated leukocytes count i n urine sediment (number/area)Ordered By: Art Bianchi on 10-31-2022 WBC Auto (Urine sed) [#/Area] 10-19 [HPF] 0-4 [facility] Basophils Auto (Bld) [#/Vol] Ordered By: Art Bianchi on 10-31-2022 Basophils (Bld) [#/Vol] 0.0 10*3/uL 0.0-0.1 [facility] Basophils/100 WBC Auto (Bld) Ordered By: Art Bianchi on 10-31-2022 Basophils/100 WBC (Bld) 0.3 % . [facility] Bilirubin Test strip Ql (U)O rdered By: Art Bianchi on 10-31-2022 Bilirubin Ql (U) Negative Negative [facility] Color Auto (U)Ordered By: Adrian red Tash on 10-31-2022 Color (U) Red Yellow [facility] Eosinophils Auto (Bld) [#/Vo l]Ordered By: Art Bianchi on 10-31-2022 Eosinophils (Bld) [#/Vol] 0.1 10*3/uL 0.0-0.7 [facility] Eosinophils/100 WBC Auto (Bl d)Ordered By: Art Bianchi on 10-31-2022 Eosinophils/100 WBC (Bld) 1.0 % . [facility] Erythrocyte distribution wid th Auto (RBC) [Ratio]Ordered By: Art Bianchi on 10-31-2022 Erythrocyte distribution width (RBC) [Ratio] 14.0 % 11.9-15.3 [facility] Estimated glomerular filtrat ion rate (GFR) non- AmericanOrdered By: Art Bianchi on 10-31-2022 GFR/1.73 sq M.predicted among non-blacks MDRD (S/P/Bld) [Vol rate/Area] > 60 mL/Min [facility] Globulin Calc (S) [Mass/Vol] Ordered By: Art Bianchi on 10-31-2022 Globulin (S) [Mass/Vol] 3.1 g/dL [facility] HCG ( test) IA.rapi d Ql (U)Ordered By: Art Bianchi on 10-31-2022 HCG ( test) Ql (U) Negative [facility] Hematocrit Auto (Bld) [Volum e fraction]Ordered By: Art Bianchi on 10-31-2022 Hematocrit (Bld) [Volume fraction] 45.0 % 36.0-46.0 [facility] Hemoglobin [Mass/volume] in BloodOrdered By: Art Bianchi on 10-31-2022 Hemoglobin (Bld) [Mass/Vol] 15.2 g/dL 12.0-16.0 [facility] Ketones Auto test strip (U) [Mass/Vol]Ordered By: Art Bianchi on 10-31-2022 Ketones (U) [Mass/Vol] 3+ Negative [facility] Leukocytes [#/volume] correc venkata for nucleated erythrocytes in Blood by Automated counOrdered By: Art Bianchi on 10-31-2022 WBC corrected for nucl RBC Auto (Bld) [#/Vol] 14.0 10*3/uL 4.5-13.5 [facility] Lymphocytes Auto (Bld) [#/Vo l]Ordered By: Art Bianchi on 10-31-2022 Lymphocytes (Bld) [#/Vol] 2.2 10*3/uL 1.20-4.8 [facility] Lymphocytes/100 WBC Auto (Bl d)Ordered By: Art Bianchi on 10-31-2022 Lymphocytes/100 WBC (Bld) 15.5 % . [facility] MCH Auto (RBC) [Entitic mass ]Ordered By: Art Bianchi on 10-31-2022 MCH (RBC) [Entitic mass] 28.6 pg 25.0-35.0 [facility] MCHC Auto (RBC) [Mass/Vol]Or dered By: Art Bianchi on 10-31-2022 MCHC (RBC) [Mass/Vol] 33.7 g/dL 31.0-37.0 [facility] MCV Auto (RBC) [Entitic vol] Ordered By: Art Bianchi on 10-31-2022 MCV (RBC) [Entitic vol] 85.0 fL 78-102 [facility] Monocyte distribution width [Entitic volume] in Blood by AutomatedOrdered By: Art Bianchi on 10-31-2022 Monocyte distribution width Auto (Bld) [Entitic vol] 14.69 % 0.00-20.00 [facility] Monocytes Auto (Bld) [#/Vol] Ordered By: Art Bianchi on 10-31-2022 Monocytes (Bld) [#/Vol] 1.3 10*3/uL 0.1-1.00 [facility] Monocytes/100 WBC Auto (Bld) Ordered By: Art Bianchi on 10-31-2022 Monocytes/100 WBC (Bld) 9.1 % . [facility] Neutrophils Auto (Bld) [#/Vo l]Ordered By: Art Bianchi on 10-31-2022 Neutrophils (Bld) [#/Vol] 10.4 10*3/uL 1.2-7.7 [facility] Neutrophils/100 WBC Auto (Bl d)Ordered By: Art Bianchi on 10-31-2022 Neutrophils/100 WBC (Bld) 74.1 % . [facility] Nitrite Test strip Ql (U)Ord ered By: Art Bianchi on 10-31-2022 Nitrite Ql (U) Negative Negative [facility] No Panel InformationOrdered By: Art Bianchi on 10-31-2022 0-8 [LPF] 0-8 [facility] > 60 mL/Min [facility] 29.0 U/L 22-51 [facility] 102.97 [facility] Nucleated erythrocytes [Pres ence] in Blood by Automated countOrdered By: Art Bianchi on 10-31-2022 Nucleated RBC Auto Ql (Bld) 0.1 /100{WBC} 0-0.5 [facility] Platelet mean volume Auto (B ld) [Entitic vol]Ordered By: Art Bianchi on 10-31-2022 Platelet mean volume (Bld) [Entitic vol] 8.3 fL 6.3-10.7 [facility] Platelets Auto (Bld) [#/Vol] Ordered By: Art Bianchi on 10-31-2022 Platelets (Bld) [#/Vol] 337 10*3/uL 150-450 [facility] Protein Auto test strip (U) [Mass/Vol]Ordered By: Art Bianchi on 10-31-2022 Protein (U) [Mass/Vol] 100 mg/dL [facility] [Mass/volume] in Ser um or PlasmaOrdered By: Art Bianchi on 10-31-2022 Protein [Mass/Vol] 8.2 g/dL 6.1-7.9 [facility] RBC Auto (Bld) [#/Vol]Ordere d By: Art Bianchi on 10-31-2022 RBC (Bld) [#/Vol] 5.29 10*6/uL 4.10-5.10 [facility] Serum or plasma alanine florez otransferase measurement without P-5'-P (enzymatic activiOrdered By: Art Binachi on 10-31-2022 ALT No additional P-5'-P [Catalytic activity/Vol] 25 U/L 10-60 [facility] Serum or plasma albumin/glob ulin mass ratioOrdered By: Art Bianchi on 10-31-2022 Albumin/Globulin [Mass ratio] 1.6 {ratio} [facility] Serum or plasma alkaline justin sphatase measurement (enzymatic activity/volume)Ordered By: Art Bianchi on 10-31-2022 ALP [Catalytic activity/Vol] 62 U/L 32-92 [facility] Serum or plasma anion gap de terminationOrdered By: Art Bianchi on 10-31-2022 Anion gap [Moles/Vol] 16.8 mmol/L 6.0-15.0 [facility] Serum or plasma aspartate am inotransferase measurement (enzymatic activity/volume)Ordered By: Art Bianchi on 10-31-2022 AST [Catalytic activity/Vol] 25 U/L 10-42 [facility] Serum or plasma calcium tammy urement (mass/volume)Ordered By: Art Bianchi on 10-31-2022 Calcium [Mass/Vol] 9.9 mg/dL 8.2-10.2 [facility] Serum or plasma chloride judy surement (moles/volume)Ordered By: Art Bianchi on 10-31-2022 Chloride [Moles/Vol] 96 mmol/L 95-114 [facility] Serum or plasma creatinine m easurement with calculation of estimated glomerular filtrOrdered By: Art Bianchi on 10-31-2022 Creatinine and Glomerular filtration rate.predicted panel (S/P/Bld) 0.89 mg/dL 0.44-1.03 [facility] Serum or plasma glucose tammy urement (mass/volume)Ordered By: Art Bianchi on 10-31-2022 Glucose [Mass/Vol] 120 mg/dL 70-100 [facility] Serum or plasma potassium me asurement (moles/volume)Ordered By: Art Bianchi on 10-31-2022 Potassium [Moles/Vol] 3.2 mmol/L 3.5-5.1 [facility] Serum or plasma sodium measu rement (moles/volume)Ordered By: Art Bianchi on 10-31-2022 Sodium [Moles/Vol] 132 mmol/L 136-146 [facility] Serum or plasma total biliru bin measurement (mass/volume)Ordered By: Art Bianchi on 10-31-2022 Bilirubin [Mass/Vol] 1.7 mg/dL 0.3-1.2 [facility] Serum or plasma total carbon dioxide measurement (moles/volume)Ordered By: Art Bianchi on 10-31-2022 CO2 [Moles/Vol] 22.4 mmol/L 22.0-30.0 [facility] Serum or plasma urea nitroge n measurement (mass/volume)Ordered By: Art Bianchi on 10-31-2022 Urea nitrogen [Mass/Vol] 28 mg/dL 9-23 [facility] Specific gravity Auto test s trip (U) [Rel density]Ordered By: Art Bianchi on 10-31-2022 Specific gravity (U) [Rel density] 1.030 1.001-1.03 0 [facility] Squamous epithelial cells de tection in urine sediment by light microscopyOrdered By: Art Bianchi on 10-31-2022 Epithelial cells.squamous LM Ql (Urine sed) 10-19 [HPF] 0-2 [facility] Urine bacteria detection by automated methodOrdered By: Art Bianchi on 10-31-2022 Bacteria Auto Ql (U) None seen None Seen [facility] Urine clarity by refractomet ry automatedOrdered By: Art Bianchi on 10-31-2022 Clarity Refractometry automated (U) Cloudy Clear [facility] Urine culture routineOrdered By: Art Bianchi on 10-31-2022 Bacteria identified Cx Nom (U) 2 Days [facility] Urine glucose measurement by automated test strip (mass/volume)Ordered By: Art Bianchi on 10-31-2022 Glucose Auto test strip (U) [Mass/Vol] Normal mg/dL Normal [facility] Urine hemoglobin detection b y automated test stripOrdered By: Art Bianchi on 10-31-2022 Hemoglobin Auto test strip Ql (U) 3+ Negative [facility] Urine leukocyte esterase det ection by automated test stripOrdered By: Art Bianchi on 10-31-2022 Leukocyte esterase Auto test strip Ql (U) 2+ Negative [facility] Urobilinogen Auto test strip (U) [Mass/Vol]Ordered By: Art Bianchi on 10-31-2022 Urobilinogen (U) [Mass/Vol] Normal mg/dL Normal [facility] WBC Auto (Bld) [#/Vol]Ordere d By: Art Bianchi on 10-31-2022 WBC (Bld) [#/Vol] 14.0 10*3/uL 4.5-13.5 [facility] pH Auto test strip (U)Ordere d By: Art Bianchi on 10-31-2022 pH (U) 6.5 [pH] 5.0-9.0 [facility] Basophils Auto (Bld) [#/Vol] Ordered By: Ravi Arguello on 10-29-2022 Basophils (Bld) [#/Vol] 0.0 10*3/uL 0.0-0.1 [facility] Basophils/100 WBC Auto (Bld) Ordered By: Ravi Arguello on 10-29-2022 Basophils/100 WBC (Bld) 0.3 % . [facility] Body fluid albumin measureme nt (mass/volume)Ordered By: Ravi Arguello on 10-29-2022 Albumin (Body fld) [Mass/Vol] 5.2 g/dL 3.2-5.5 [facility] Creatinine and Glomerular fi ltration rate.predicted panel (S/P/Bld)Ordered By: Ravi Arguello on 10-29-2022 Creatinine [Mass/Vol] 0.85 mg/dL 0.44-1.03 [facility] Direct bilirubin measurement Ordered By: Ravi Arguello on 10-29-2022 Bilirubin.direct [Mass/Vol] 0.1 mg/dL 0.0-0.4 [facility] Eosinophils Auto (Bld) [#/Vo l]Ordered By: Ravi Arguello on 10-29-2022 Eosinophils (Bld) [#/Vol] 0.0 10*3/uL 0.0-0.7 [facility] Eosinophils/100 WBC Auto (Bl d)Ordered By: Ravi Arguello on 10-29-2022 Eosinophils/100 WBC (Bld) 0.1 % . [facility] Erythrocyte distribution wid th Auto (RBC) [Ratio]Ordered By: Ravi Arguello on 10-29-2022 Erythrocyte distribution width (RBC) [Ratio] 14.4 % 11.9-15.3 [facility] Estimated glomerular filtrat ion rate (GFR) non- AmericanOrdered By: Ravi Arguello on 10-29-2022 GFR/1.73 sq M.predicted among non-blacks MDRD (S/P/Bld) [Vol rate/Area] > 60 mL/Min [facility] Globulin Calc (S) [Mass/Vol] Ordered By: Ravi Arguello on 10-29-2022 Globulin (S) [Mass/Vol] 3.7 g/dL [facility] Hematocrit Auto (Bld) [Volum e fraction]Ordered By: Ravi Arguello on 10-29-2022 Hematocrit (Bld) [Volume fraction] 42.9 % 36.0-46.0 [facility] Hemoglobin [Mass/volume] in BloodOrdered By: Ravi Arguello on 10-29-2022 Hemoglobin (Bld) [Mass/Vol] 14.3 g/dL 12.0-16.0 [facility] Laboratory - Chemistry and C hemistry - challengeOrdered By: Ravi Arguello on 10-29-2022 Lipase [Catalytic activity/Vol] 25.0 U/L 22-51 [facility] Leukocytes [#/volume] correc venkata for nucleated erythrocytes in Blood by Automated counOrdered By: Ravi Arguello on 10-29-2022 WBC corrected for nucl RBC Auto (Bld) [#/Vol] 13.7 10*3/uL 4.5-13.5 [facility] Lymphocytes Auto (Bld) [#/Vo l]Ordered By: Ravi Arguello on 10-29-2022 Lymphocytes (Bld) [#/Vol] 1.7 10*3/uL 1.20-4.8 [facility] Lymphocytes/100 WBC Auto (Bl d)Ordered By: Ravi Arguello on 10-29-2022 Lymphocytes/100 WBC (Bld) 12.4 % . [facility] MCH Auto (RBC) [Entitic mass ]Ordered By: Ravi Arguello on 10-29-2022 MCH (RBC) [Entitic mass] 28.4 pg 25.0-35.0 [facility] MCHC Auto (RBC) [Mass/Vol]Or dered By: Ravi Arguello on 10-29-2022 MCHC (RBC) [Mass/Vol] 33.3 g/dL 31.0-37.0 [facility] MCV Auto (RBC) [Entitic vol] Ordered By: Ravi Arguello on 10-29-2022 MCV (RBC) [Entitic vol] 85.1 fL 78-102 [facility] Monocyte distribution width [Entitic volume] in Blood by AutomatedOrdered By: Ravi Arguello on 10-29-2022 Monocyte distribution width Auto (Bld) [Entitic vol] 16.57 % 0.00-20.00 [facility] Monocytes Auto (Bld) [#/Vol] Ordered By: Ravi Arguello on 10-29-2022 Monocytes (Bld) [#/Vol] 0.9 10*3/uL 0.1-1.00 [facility] Monocytes/100 WBC Auto (Bld) Ordered By: Ravi Arguello on 10-29-2022 Monocytes/100 WBC (Bld) 6.8 % . [facility] Neutrophils Auto (Bld) [#/Vo l]Ordered By: Ravi Arguello on 10-29-2022 Neutrophils (Bld) [#/Vol] 11.0 10*3/uL 1.2-7.7 [facility] Neutrophils/100 WBC Auto (Bl d)Ordered By: Ravi Arguello on 10-29-2022 Neutrophils/100 WBC (Bld) 80.4 % . [facility] No Panel InformationOrdered By: Ravi Arguello on 10-29-2022 Estimated GFR () > 60 mL/Min [facility] Comment on above: GFR estimated refere nce range: According to KDOQI guidelines, <60 ml/min/1.73m2 is sufficient to diagnose a patient with chronic kidney disease. Pharmacy Creatinine Clearance (Chem 105.83 [facility] > 60 mL/Min [facility] 25.0 U/L 22-51 [facility] 105.83 [facility] Nucleated erythrocytes [Pres ence] in Blood by Automated countOrdered By: Ravi Arguello on 10-29-2022 Nucleated RBC Auto Ql (Bld) 0.0 /100{WBC} 0-0.5 [facility] Platelet mean volume Auto (B ld) [Entitic vol]Ordered By: Ravi Arguello on 10-29-2022 Platelet mean volume (Bld) [Entitic vol] 8.4 fL 6.3-10.7 [facility] Platelets Auto (Bld) [#/Vol] Ordered By: Ravi Arguello on 10-29-2022 Platelets (Bld) [#/Vol] 355 10*3/uL 150-450 [facility] Protein [Mass/volume] in Ser um or PlasmaOrdered By: Ravi Arguello on 10-29-2022 Protein [Mass/Vol] 8.9 g/dL 6.1-7.9 [facility] RBC Auto (Bld) [#/Vol]Ordere d By: Ravi Arguello on 10-29-2022 RBC (Bld) [#/Vol] 5.04 10*6/uL 4.10-5.10 [facility] Serum or plasma alanine floerz otransferase measurement without P-5'-P (enzymatic activiOrdered By: Ravi Arguello on 10-29-2022 ALT No additional P-5'-P [Catalytic activity/Vol] 24 U/L 10-60 [facility] Serum or plasma albumin/glob ulin mass ratioOrdered By: Ravi Arguello on 10-29-2022 Albumin/Globulin [Mass ratio] 1.4 {ratio} [facility] Serum or plasma alkaline justin sphatase measurement (enzymatic activity/volume)Ordered By: Ravi Arguello on 10-29-2022 ALP [Catalytic activity/Vol] 68 U/L 32-92 [facility] Serum or plasma anion gap de terminationOrdered By: Ravi Arguello on 10-29-2022 Anion gap [Moles/Vol] 19.9 mmol/L 6.0-15.0 [facility] Serum or plasma aspartate am inotransferase measurement (enzymatic activity/volume)Ordered By: Ravi Arguello on 10-29-2022 AST [Catalytic activity/Vol] 20 U/L 10-42 [facility] Serum or plasma calcium tammy urement (mass/volume)Ordered By: Ravi Arguello on 10-29-2022 Calcium [Mass/Vol] 10.4 mg/dL 8.2-10.2 [facility] Serum or plasma chloride judy surement (moles/volume)Ordered By: Ravi Arguello on 10-29-2022 Chloride [Moles/Vol] 100 mmol/L 95-114 [facility] Serum or plasma creatinine m easurement with calculation of estimated glomerular filtrOrdered By: Ravi Arguello on 10-29-2022 Creatinine and Glomerular filtration rate.predicted panel (S/P/Bld) 0.85 mg/dL 0.44-1.03 [facility] Serum or plasma glucose tammy urement (mass/volume)Ordered By: Ravi Arguello on 10-29-2022 Glucose [Mass/Vol] 114 mg/dL 70-100 [facility] Comment on above: ADA recommended refe rence rangeRandom Glucose Reference Range is dependent on time and content of last meal. Glucose of more than 200 mg/dL in a nonstressed, ambulatory subject supports the diagnosis of Diabetes Mellitus. Serum or plasma non-glucuron idated bilirubin measurement (mass/volume)Ordered By: Ravi Arguello on 10-29-2022 Bilirubin.indirect [Mass/Vol] 1.1 mg/dL [facility] Serum or plasma potassium me asurement (moles/volume)Ordered By: Ravi Arguello on 10-29-2022 Potassium [Moles/Vol] 3.3 mmol/L 3.5-5.1 [facility] Serum or plasma sodium measu rement (moles/volume)Ordered By: Ravi Arguello on 10-29-2022 Sodium [Moles/Vol] 137 mmol/L 136-146 [facility] Serum or plasma total biliru bin measurement (mass/volume)Ordered By: Ravi Arguello on 10-29-2022 Bilirubin [Mass/Vol] 1.2 mg/dL 0.3-1.2 [facility] Serum or plasma total carbon dioxide measurement (moles/volume)Ordered By: Ravi Arguello on 10-29-2022 CO2 [Moles/Vol] 20.4 mmol/L 22.0-30.0 [facility] Serum or plasma urea nitroge n measurement (mass/volume)Ordered By: Ravi Arguello on 10-29-2022 Urea nitrogen [Mass/Vol] 21 mg/dL 9-23 [facility] WBC Auto (Bld) [#/Vol]Ordere d By: Ravi Arguello on 10-29-2022 WBC (Bld) [#/Vol] 13.7 10*3/uL 4.5-13.5 [facility] Basophils Auto (Bld) [#/Vol] Ordered By: Modesta Chand on 08-27-2022 Basophils (Bld) [#/Vol] 0.0 10*3/uL 0.0-0.1 [facility] Basophils/100 WBC Auto (Bld) Ordered By: Modesta Chand on 08-27-2022 Basophils/100 WBC (Bld) 0.3 % . [facility] Body fluid albumin measureme nt (mass/volume)Ordered By: Modesta Chand on 08-27-2022 Albumin (Body fld) [Mass/Vol] 4.7 g/dL 3.2-5.5 [facility] Creatinine and Glomerular fi ltration rate.predicted panel (S/P/Bld)Ordered By: Modesta Chand on 08-27-2022 Creatinine [Mass/Vol] 0.90 mg/dL 0.44-1.03 [facility] Eosinophils Auto (Bld) [#/Vo l]Ordered By: Modesta Chand on 08-27-2022 Eosinophils (Bld) [#/Vol] 0.3 10*3/uL 0.0-0.7 [facility] Eosinophils/100 WBC Auto (Bl d)Ordered By: Modesta Chand on 08-27-2022 Eosinophils/100 WBC (Bld) 2.2 % . [facility] Erythrocyte distribution wid th Auto (RBC) [Ratio]Ordered By: Modesta Chand on 08-27-2022 Erythrocyte distribution width (RBC) [Ratio] 14.0 % 11.9-15.3 [facility] Estimated glomerular filtrat ion rate (GFR) non- AmericanOrdered By: Modesta Chand on 08-27-2022 GFR/1.73 sq M.predicted among non-blacks MDRD (S/P/Bld) [Vol rate/Area] > 60 mL/Min [facility] Globulin Calc (S) [Mass/Vol] Ordered By: Modesta Chand on 08-27-2022 Globulin (S) [Mass/Vol] 2.5 g/dL [facility] Hematocrit Auto (Bld) [Volum e fraction]Ordered By: Modesta Chand on 08-27-2022 Hematocrit (Bld) [Volume fraction] 46.5 % 36.0-46.0 [facility] Hemoglobin [Mass/volume] in BloodOrdered By: Modesta Chand on 08-27-2022 Hemoglobin (Bld) [Mass/Vol] 15.6 g/dL 12.0-16.0 [facility] Laboratory - Chemistry and C hemistry - challengeOrdered By: Modesta Chand on 08-27-2022 Lipase [Catalytic activity/Vol] 27.0 U/L 22-51 [facility] Laboratory - Hematology and Cell countsOrdered By: Modesta Chand on 08-27-2022 Nucleated RBC/100 WBC (Bld) [Ratio] 0.1 % 0-0.5 [facility] Leukocytes [#/volume] in Blo od by Automated countOrdered By: Modesta Chand on 08-27-2022 WBC (Bld) [#/Vol] 13.4 10*3/uL 4.5-13.5 [facility] Lymphocytes Auto (Bld) [#/Vo l]Ordered By: Modesta Chand on 08-27-2022 Lymphocytes (Bld) [#/Vol] 3.1 10*3/uL 1.20-4.8 [facility] Lymphocytes/100 WBC Auto (Bl d)Ordered By: Modesta Chand on 08-27-2022 Lymphocytes/100 WBC (Bld) 22.9 % . [facility] MCH Auto (RBC) [Entitic mass ]Ordered By: Modesta Chand on 08-27-2022 MCH (RBC) [Entitic mass] 28.4 pg 25.0-35.0 [facility] MCHC Auto (RBC) [Mass/Vol]Or dered By: Modesta Chand on 08-27-2022 MCHC (RBC) [Mass/Vol] 33.5 g/dL 31.0-37.0 [facility] MCV Auto (RBC) [Entitic vol] Ordered By: Modesta Chand on 08-27-2022 MCV (RBC) [Entitic vol] 84.8 fL 78-102 [facility] Monocytes Auto (Bld) [#/Vol] Ordered By: Modesta Chand on 08-27-2022 Monocytes (Bld) [#/Vol] 1.2 10*3/uL 0.1-1.00 [facility] Monocytes/100 WBC Auto (Bld) Ordered By: Modesta Chand on 08-27-2022 Monocytes/100 WBC (Bld) 9.1 % . [facility] Neutrophils Auto (Bld) [#/Vo l]Ordered By: Modesta Chand on 08-27-2022 Neutrophils (Bld) [#/Vol] 8.8 10*3/uL 1.2-7.7 [facility] Neutrophils/100 WBC Auto (Bl d)Ordered By: Modesta Chand on 08-27-2022 Neutrophils/100 WBC (Bld) 65.5 % . [facility] No Panel InformationOrdered By: Modesta Chand on 08-27-2022 Estimated GFR () > 60 mL/Min [facility] Comment on above: GFR estimated refere nce range: According to KDOQI guidelines, <60 ml/min/1.73m2 is sufficient to diagnose a patient with chronic kidney disease. Pharmacy Creatinine Clearance (Chem N/A [facility] 13.4 10*3/uL 4.5-13.5 [facility] 0.1 % 0-0.5 [facility] > 60 mL/Min [facility] 27.0 U/L 22-51 [facility] N/A [facility] Platelet mean volume Auto (B ld) [Entitic vol]Ordered By: Modesta Chand on 08-27-2022 Platelet mean volume (Bld) [Entitic vol] 8.9 fL 6.3-10.7 [facility] Platelets Auto (Bld) [#/Vol] Ordered By: Modesta Chand on 08-27-2022 Platelets (Bld) [#/Vol] 373 10*3/uL 150-450 [facility] Protein [Mass/volume] in Ser um or PlasmaOrdered By: Modesta Chand on 08-27-2022 Protein [Mass/Vol] 7.2 g/dL 6.1-7.9 [facility] RBC Auto (Bld) [#/Vol]Ordere d By: Modesta Chand on 08-27-2022 RBC (Bld) [#/Vol] 5.49 10*6/uL 4.10-5.10 [facility] Serum or plasma alanine florez otransferase measurement without P-5'-P (enzymatic activiOrdered By: Modesta Chand on 08-27-2022 ALT No additional P-5'-P [Catalytic activity/Vol] 20 U/L 10-60 [facility] Serum or plasma albumin/glob ulin mass ratioOrdered By: Modesta Chand on 08-27-2022 Albumin/Globulin [Mass ratio] 1.9 {ratio} [facility] Serum or plasma alkaline justin sphatase measurement (enzymatic activity/volume)Ordered By: Modesta Chand on 08-27-2022 ALP [Catalytic activity/Vol] 63 U/L 32-92 [facility] Serum or plasma amylase tammy urement (enzymatic activity/volume)Ordered By: Modesta Chand on 08-27-2022 Amylase [Catalytic activity/Vol] 25 U/L 28-100 [facility] Serum or plasma anion gap de terminationOrdered By: Modesta Chand on 08-27-2022 Anion gap [Moles/Vol] 22.5 mmol/L 6.0-15.0 [facility] Serum or plasma aspartate am inotransferase measurement (enzymatic activity/volume)Ordered By: Modesta Chand on 08-27-2022 AST [Catalytic activity/Vol] 18 U/L 10-42 [facility] Serum or plasma calcium tammy urement (mass/volume)Ordered By: Modesta Chand on 08-27-2022 Calcium [Mass/Vol] 10.1 mg/dL 8.2-10.2 [facility] Serum or plasma chloride judy surement (moles/volume)Ordered By: Modesta Chand on 08-27-2022 Chloride [Moles/Vol] 89 mmol/L 95-114 [facility] Serum or plasma creatinine m easurement with calculation of estimated glomerular filtrOrdered By: Modesta Chand on 08-27-2022 Creatinine and Glomerular filtration rate.predicted panel (S/P/Bld) 0.90 mg/dL 0.44-1.03 [facility] Serum or plasma glucose tammy urement (mass/volume)Ordered By: Modesta Chand on 08-27-2022 Glucose [Mass/Vol] 76 mg/dL 70-100 [facility] Comment on above: ADA recommended refe rence rangeRandom Glucose Reference Range is dependent on time and content of last meal. Glucose of more than 200 mg/dL in a nonstressed, ambulatory subject supports the diagnosis of Diabetes Mellitus. Serum or plasma potassium me asurement (moles/volume)Ordered By: Modesta Chand on 08-27-2022 Potassium [Moles/Vol] 3.7 mmol/L 3.5-5.1 [facility] Serum or plasma sodium measu rement (moles/volume)Ordered By: Modesta Chand on 08-27-2022 Sodium [Moles/Vol] 131 mmol/L 136-146 [facility] Serum or plasma total biliru bin measurement (mass/volume)Ordered By: Modesta Chand on 08-27-2022 Bilirubin [Mass/Vol] 1.6 mg/dL 0.3-1.2 [facility] Comment on above: Samples from patient s who have taken Naproxen have shown spurious elevation in Total Bilirubin levels. A metabolite of Naproxen, O-desmethylnaproxen, has been shown to interfere with the Nava-Carolynn method for measuring Total Bilirubin. Serum or plasma total carbon dioxide measurement (moles/volume)Ordered By: Modesta Chand on 08-27-2022 CO2 [Moles/Vol] 23.2 mmol/L 22.0-30.0 [facility] Serum or plasma urea nitroge n measurement (mass/volume)Ordered By: Modesta Chand on 08-27-2022 Urea nitrogen [Mass/Vol] 15 mg/dL 08-20 [facility] Basophils Auto (Bld) [#/Vol] Ordered By: Gregorio Carey on 08-22-2022 Basophils (Bld) [#/Vol] 0.0 10*3/uL 0.0-0.1 [facility] Basophils/100 WBC Auto (Bld) Ordered By: Gregorio Carey on 08-22-2022 Basophils/100 WBC (Bld) 0.3 % . [facility] Blood hemoglobin measurement (mass/volume)Ordered By: Gregorio Carey on 08-22-2022 Hemoglobin (Bld) [Mass/Vol] 13.1 g/dL 12.0-16.0 [facility] Blood leukocytes automated c ount (number/volume)Ordered By: Gregorio Carey on 08-22-2022 WBC (Bld) [#/Vol] 9.7 10*3/uL 4.5-13.5 [facility] Creatinine and Glomerular fi ltration rate.predicted panel (S/P/Bld)Ordered By: Gregorio Carey on 08-22-2022 Creatinine [Mass/Vol] 0.75 mg/dL 0.44-1.03 [facility] Eosinophils Auto (Bld) [#/Vo l]Ordered By: Gregorio Carey on 08-22-2022 Eosinophils (Bld) [#/Vol] 0.1 10*3/uL 0.0-0.7 [facility] Eosinophils/100 WBC Auto (Bl d)Ordered By: Gregorio Carey on 08-22-2022 Eosinophils/100 WBC (Bld) 1.0 % . [facility] Erythrocyte distribution wid th Auto (RBC) [Ratio]Ordered By: Gregorio Carey on 08-22-2022 Erythrocyte distribution width (RBC) [Ratio] 14.1 % 11.9-15.3 [facility] Estimated glomerular filtrat ion rate (GFR) non- AmericanOrdered By: Gregorio Carey on 08-22-2022 GFR/1.73 sq M.predicted among non-blacks MDRD (S/P/Bld) [Vol rate/Area] > 60 mL/Min [facility] Hematocrit Auto (Bld) [Volum e fraction]Ordered By: Gregorio Carey on 08-22-2022 Hematocrit (Bld) [Volume fraction] 39.6 % 36.0-46.0 [facility] Laboratory - Hematology and Cell countsOrdered By: Gregorio Carey on 08-22-2022 Nucleated RBC/100 WBC (Bld) [Ratio] 0.0 % 0-0.5 [facility] Lymphocytes Auto (Bld) [#/Vo l]Ordered By: Gregorio Carey on 08-22-2022 Lymphocytes (Bld) [#/Vol] 2.0 10*3/uL 1.20-4.8 [facility] Lymphocytes/100 WBC Auto (Bl d)Ordered By: Gregorio Carey on 08-22-2022 Lymphocytes/100 WBC (Bld) 20.5 % . [facility] MCH Auto (RBC) [Entitic mass ]Ordered By: Gregorio Carey on 08-22-2022 MCH (RBC) [Entitic mass] 28.0 pg 25.0-35.0 [facility] MCHC Auto (RBC) [Mass/Vol]Or dered By: Gregorio Carey on 08-22-2022 MCHC (RBC) [Mass/Vol] 33.2 g/dL 31.0-37.0 [facility] MCV Auto (RBC) [Entitic vol] Ordered By: Gregorio Carey on 08-22-2022 MCV (RBC) [Entitic vol] 84.5 fL 78-102 [facility] Monocytes Auto (Bld) [#/Vol] Ordered By: Gregorio Carey on 08-22-2022 Monocytes (Bld) [#/Vol] 0.8 10*3/uL 0.1-1.00 [facility] Monocytes/100 WBC Auto (Bld) Ordered By: Gregorio Carey on 08-22-2022 Monocytes/100 WBC (Bld) 8.0 % . [facility] Neutrophils Auto (Bld) [#/Vo l]Ordered By: Gregorio Carey on 08-22-2022 Neutrophils (Bld) [#/Vol] 6.8 10*3/uL 1.2-7.7 [facility] Neutrophils/100 WBC Auto (Bl d)Ordered By: Gregorio Carey on 08-22-2022 Neutrophils/100 WBC (Bld) 70.2 % . [facility] No Panel InformationOrdered By: Gregorio Carey on 08-22-2022 Estimated GFR () > 60 mL/Min [facility] Comment on above: GFR estimated refere nce range: According to KDOQI guidelines, <60 ml/min/1.73m2 is sufficient to diagnose a patient with chronic kidney disease. Pharmacy Creatinine Clearance (Chem 117.26 [facility] 9.7 10*3/uL 4.5-13.5 [facility] 0.0 % 0-0.5 [facility] > 60 mL/Min [facility] 117.26 [facility] Platelet mean volume Auto (B ld) [Entitic vol]Ordered By: Gregorio Carey on 08-22-2022 Platelet mean volume (Bld) [Entitic vol] 8.6 fL 6.3-10.7 [facility] Platelets Auto (Bld) [#/Vol] Ordered By: Gregorio Carey on 08-22-2022 Platelets (Bld) [#/Vol] 246 10*3/uL 150-450 [facility] RBC Auto (Bld) [#/Vol]Ordere d By: Gregorio Carey on 08-22-2022 RBC (Bld) [#/Vol] 4.69 10*6/uL 4.10-5.10 [facility] Serum nuclear antibody titer Ordered By: Gregorio Carey on 08-22-2022 Nuclear Ab (S) [Titer] Negative . [facility] Comment on above: Negative <1:80 Borde rline 1:80 Positive >1:80ICAP nomenclature: AC-0For more information about Hep-2 cell patterns useANApatterns.org, the official website for theInternational Consensus on Antinuclear Antibody (EDMOND)Patterns (ICAP).Performed at: [facility] [id number] Director: James Nelson PhD, Phone: [phone] Serum or plasma anion gap de terminationOrdered By: Gregorio Carey on 08-22-2022 Anion gap [Moles/Vol] 17.0 mmol/L 6.0-15.0 [facility] Serum or plasma beta choriog onadotropin measurement (units/volume)Ordered By: Gregorio Carey on 08-22-2022 HCG.beta subunit Qn m[IU]/mL [facility] Comment on above: Approximate Approxim [...] on 08-22-2022 Calcium [Mass/Vol] 9.4 mg/dL 8.2-10.2 [facility] Serum or plasma chloride judy surement (moles/volume)Ordered By: Gregorio Carey on 08-22-2022 Chloride [Moles/Vol] 99 mmol/L 95-114 [facility] Serum or plasma creatinine m easurement with calculation of estimated glomerular filtrOrdered By: Gregorio Carey on 08-22-2022 Creatinine and Glomerular filtration rate.predicted panel (S/P/Bld) 0.75 mg/dL 0.44-1.03 [facility] Serum or plasma glucose tammy urement (mass/volume)Ordered By: Gregorio Carey on 08-22-2022 Glucose [Mass/Vol] 90 mg/dL 70-100 [facility] Comment on above: ADA recommended refe rence [...] on 08-22-2022 Potassium [Moles/Vol] 3.8 mmol/L 3.5-5.1 [facility] Serum or plasma sodium measu rement (moles/volume)Ordered By: Gregorio Carey on 08-22-2022 Sodium [Moles/Vol] 134 mmol/L 136-146 [facility] Serum or plasma total carbon dioxide measurement (moles/volume)Ordered By: Gregorio Carey on 08-22-2022 CO2 [Moles/Vol] 21.8 mmol/L 22.0-30.0 [facility] Serum or plasma urea nitroge n measurement (mass/volume)Ordered By: Gregorio Carey on 08-22-2022 Urea nitrogen [Mass/Vol] 7 mg/dL 08-20 [facility] Urine culture routineOrdered By: Gregorio Carey on 08-22-2022 Bacteria identified Cx Nom (U) 2 Days [facility] Urine culture routineOrdered By: Gilson Castro on 08-22-2022 Bacteria identified Cx Nom (U) 2 Days [facility] Urine culture routineOrdered By: Colten Fry on 08-21-2022 Bacteria identified Cx Nom (U) 2 Days [facility] Amphetamine Screen Ql (U)Ord ered By: Gilson Castro on 08-20-2022 Amphetamines Ql (U) Negative Negative [facility] Automated erythrocytes count in urine sediment (number/area)Ordered By: Gilson Castro on 08-20-2022 RBC Auto (Urine sed) [#/Area] None seen [HPF] 0-4 [facility] Automated leukocytes count i n urine sediment (number/area)Ordered By: Gilson Castro on 08-20-2022 WBC Auto (Urine sed) [#/Area] 1-2 [HPF] 0-4 [facility] Barbiturates [Presence] in U rineOrdered By: Gilson Castro on 08-20-2022 Barbiturates Ql (U) Positive Negative [facility] Basophils Auto (Bld) [#/Vol] Ordered By: Gilson Castro on 08-20-2022 Basophils (Bld) [#/Vol] 0.0 10*3/uL 0.0-0.1 [facility] Basophils/100 WBC Auto (Bld) Ordered By: Gilson Castro on 08-20-2022 Basophils/100 WBC (Bld) 0.4 % . [facility] Benzodiazepines [Presence] i n UrineOrdered By: Gilson Castro on 08-20-2022 Benzodiazepines Ql (U) Negative Negative [facility] Bilirubin Test strip Ql (U)O rdered By: Gilson Castro on 08-20-2022 Bilirubin Ql (U) Negative Negative [facility] Blood anisocytosis detection Ordered By: Gilson Castro on 08-20-2022 Anisocytosis Ql (Bld) Slight [facility] Blood hemoglobin measurement (mass/volume)Ordered By: Gilson Castro on 08-20-2022 Hemoglobin (Bld) [Mass/Vol] 12.1 g/dL 12.0-16.0 [facility] Blood leukocytes automated c ount (number/volume)Ordered By: Gilson Castro on 08-20-2022 WBC (Bld) [#/Vol] 10.9 10*3/uL 4.5-13.5 [facility] COVID-19 Positive/NegativeOr dered By: Ravi Arguello on 08-20-2022 SARS-CoV-2 (COVID-19) N gene JANAK+probe Ql (Resp) Negative Negative [facility] Comment on above: Testing for SARS-CoV -2 by RT-PCR This test was developed and its performance characteristics determined by [employer] (crossvertise) and validated at the [facility]. This test has not been FDA [...] developed and its performance characteristics determined by [employer] ([employer]) and validated at the [facility]. This test has not been FDA [...] (COVID-19) Ag IA.rapid Ql (Resp) Negative Negative [facility] Comment on above: This is a duplicate [employer] SARS Antigen (JOSE A) result to be used for statistical tracking purpose only. Cannabinoids [Presence] in U rine by Screen methodOrdered By: Gilson Castro on 08-20-2022 Cannabinoids Screen Ql (U) Positive Negative [facility] Comment on above: These are unconfirme [...] Castro on 08-20-2022 Color (U) Yellow Yellow [facility] Creatinine and Glomerular fi ltration rate.predicted panel (S/P/Bld)Ordered By: Gilson Castro on 08-20-2022 Creatinine [Mass/Vol] 0.65 mg/dL 0.44-1.03 [facility] Eosinophils Auto (Bld) [#/Vo l]Ordered By: Gilson Castro on 08-20-2022 Eosinophils (Bld) [#/Vol] 0.0 10*3/uL 0.0-0.7 [facility] Eosinophils/100 WBC Auto (Bl d)Ordered By: Gilson Castro on 08-20-2022 Eosinophils/100 WBC (Bld) 0.3 % . [facility] Erythrocyte distribution wid th Auto (RBC) [Ratio]Ordered By: Gilson Castro on 08-20-2022 Erythrocyte distribution width (RBC) [Ratio] 13.9 % 11.9-15.3 [facility] Estimated glomerular filtrat ion rate (GFR) non- AmericanOrdered By: Gilson Castro on 08-20-2022 GFR/1.73 sq M.predicted among non-blacks MDRD (S/P/Bld) [Vol rate/Area] > 60 mL/Min [facility] Hematocrit Auto (Bld) [Volum e fraction]Ordered By: Gilson Castro on 08-20-2022 Hematocrit (Bld) [Volume fraction] 36.8 % 36.0-46.0 [facility] Ketones Auto test strip (U) [Mass/Vol]Ordered By: Gilson Castro on 08-20-2022 Ketones (U) [Mass/Vol] 2+ Negative [facility] Laboratory - Chemistry and C hemistry - challengeOrdered By: Gilson Castro on 08-20-2022 Magnesium [Mass/Vol] 1.9 mg/dL 1.6-2.6 [facility] Laboratory - Drug toxicology Ordered By: Gilson Castro on 08-20-2022 Opiates Ql (U) Negative Negative [facility] Laboratory - Hematology and Cell countsOrdered By: Gilson Castro on 08-20-2022 Nucleated RBC/100 WBC (Bld) [Ratio] 0.0 % 0-0.5 [facility] Laboratory - UrinalysisOrder ed By: Gilson Castro on 08-20-2022 Hyaline casts LM Ql (Urine sed) None seen [LPF] 0-8 [facility] Lymphocytes Auto (Bld) [#/Vo l]Ordered By: Gilson Castro on 08-20-2022 Lymphocytes (Bld) [#/Vol] 1.3 10*3/uL 1.20-4.8 [facility] Lymphocytes/100 WBC Auto (Bl d)Ordered By: Gilson Castro on 08-20-2022 Lymphocytes/100 WBC (Bld) 11.5 % . [facility] MCH Auto (RBC) [Entitic mass ]Ordered By: Gilson Castro on 08-20-2022 MCH (RBC) [Entitic mass] 28.1 pg 25.0-35.0 [facility] MCHC Auto (RBC) [Mass/Vol]Or dered By: Gilson Castro on 08-20-2022 MCHC (RBC) [Mass/Vol] 32.9 g/dL 31.0-37.0 [facility] MCV Auto (RBC) [Entitic vol] Ordered By: Gilson Castro on 08-20-2022 MCV (RBC) [Entitic vol] 85.5 fL 78-102 [facility] Monocytes Auto (Bld) [#/Vol] Ordered By: Gilson Castro on 08-20-2022 Monocytes (Bld) [#/Vol] 0.4 10*3/uL 0.1-1.00 [facility] Monocytes/100 WBC Auto (Bld) Ordered By: Gilson Castro on 08-20-2022 Monocytes/100 WBC (Bld) 3.7 % . [facility] Neutrophils Auto (Bld) [#/Vo l]Ordered By: Gilson Castro on 08-20-2022 Neutrophils (Bld) [#/Vol] 9.2 10*3/uL 1.2-7.7 [facility] Neutrophils/100 WBC Auto (Bl d)Ordered By: Gilson Castro on 08-20-2022 Neutrophils/100 WBC (Bld) 84.1 % . [facility] Nitrite Test strip Ql (U)Ord ered By: Gilson Castro on 08-20-2022 Nitrite Ql (U) Negative Negative [facility] No Panel InformationOrdered By: Gilson Castro on 08-20-2022 None seen [LPF] 0-8 [facility] Negative Negative [facility] Estimated GFR () > 60 mL/Min [facility] Comment on above: GFR estimated refere nce range: According to KDOQI guidelines, <60 ml/min/1.73m2 is sufficient to diagnose a patient with chronic kidney disease. Pharmacy Creatinine Clearance (Chem 136.96 [facility] Platelet Estimate Normal Normal [facility] Platelet Morphology Comment Normal Normal [facility] Normal Normal [facility] 1.9 mg/dL 1.6-2.6 [facility] No Panel InformationOrdered By: Ravi Arguello on 08-20-2022 SARS Antigen (LFIA) [facility] Phencyclidine Screen Ql (U)O rdered By: Gilson Castro on 08-20-2022 Phencyclidine Ql (U) Negative Negative [facility] Platelet mean volume Auto (B ld) [Entitic vol]Ordered By: Gilson Castro on 08-20-2022 Platelet mean volume (Bld) [Entitic vol] 8.6 fL 6.3-10.7 [facility] Platelets Auto (Bld) [#/Vol] Ordered By: Gilson Castro on 08-20-2022 Platelets (Bld) [#/Vol] 145 10*3/uL 150-450 [facility] Comment on above: Delta: 314 on Protein Auto test strip (U) [Mass/Vol]Ordered By: Gilson Castro on 08-20-2022 Protein (U) [Mass/Vol] Negative Negative Fi [facility] RBC Auto (Bld) [#/Vol]Ordere d By: Gilson Castro on 08-20-2022 RBC (Bld) [#/Vol] 4.31 10*6/uL 4.10-5.10 [facility] RBC morphologyOrdered By: Pierce Castro on 08-20-2022 RBC morphology finding Nom (Bld) N/A [facility] Serum or plasma anion gap de terminationOrdered By: Gilson Castro on 08-20-2022 Anion gap [Moles/Vol] 15.2 mmol/L 6.0-15.0 [facility] Serum or plasma calcium tammy urement (mass/volume)Ordered By: Gilson Castro on 08-20-2022 Calcium [Mass/Vol] 8.6 mg/dL 8.2-10.2 [facility] Serum or plasma chloride judy surement (moles/volume)Ordered By: Gilson Castro on 08-20-2022 Chloride [Moles/Vol] 101 mmol/L 95-114 [facility] Serum or plasma glucose tammy urement (mass/volume)Ordered By: Gilson Castro on 08-20-2022 Glucose [Mass/Vol] 96 mg/dL 70-100 [facility] Comment on above: ADA recommended refe rence range Random Glucose Reference Range is dependent on time and content of last meal. Glucose of more than 200 mg/dL in a nonstressed, ambulatory subject supports the diagnosis of Diabetes Mellitus. Serum or plasma potassium me asurement (moles/volume)Ordered By: Gilson Castro on 08-20-2022 Potassium [Moles/Vol] 3.1 mmol/L 3.5-5.1 [facility] Serum or plasma sodium measu rement (moles/volume)Ordered By: Gilson Castro on 08-20-2022 Sodium [Moles/Vol] 135 mmol/L 136-146 [facility] Serum or plasma total carbon dioxide measurement (moles/volume)Ordered By: Gilson Castro on 08-20-2022 CO2 [Moles/Vol] 21.9 mmol/L 22.0-30.0 [facility] Serum or plasma urea nitroge n measurement (mass/volume)Ordered By: Gilson Castro on 08-20-2022 Urea nitrogen [Mass/Vol] 11 mg/dL 08-20 [facility] Specific gravity Auto test s trip (U) [Rel density]Ordered By: Gilson Castro on 08-20-2022 Specific gravity (U) [Rel density] 1.008 1.001-1.03 0 [facility] Squamous epithelial cells de tection in urine sediment by light microscopyOrdered By: Gilson Castro on 08-20-2022 Epithelial cells.squamous LM Ql (Urine sed) 1-2 [HPF] 0-2 [facility] Urine bacteria detection by automated methodOrdered By: Gilson Castro on 08-20-2022 Bacteria Auto Ql (U) None seen None Seen [facility] Urine clarity by refractomet ry automatedOrdered By: Gilson Castro on 08-20-2022 Clarity Refractometry automated (U) Clear Clear [facility] Urine cocaine detectionOrder ed By: Gilson Castro on 08-20-2022 Cocaine Ql (U) Negative Negative [facility] Urine glucose measurement by automated test strip (mass/volume)Ordered By: Gilson Castro on 08-20-2022 Glucose Auto test strip (U) [Mass/Vol] Normal mg/dL Normal [facility] Urine hemoglobin detection b y automated test stripOrdered By: Gilson Castro on 08-20-2022 Hemoglobin Auto test strip Ql (U) Negative Negative [facility] Urine leukocyte esterase det ection by automated test stripOrdered By: Gilson Castro on 08-20-2022 Leukocyte esterase Auto test strip Ql (U) 1+ Negative [facility] Urobilinogen Auto test strip (U) [Mass/Vol]Ordered By: Gilson Castro on 08-20-2022 Urobilinogen (U) [Mass/Vol] Normal mg/dL Normal [facility] pH Auto test strip (U)Ordere d By: Gilson Castro on 08-20-2022 pH (U) 7.0 [pH] 5.0-9.0 [facility] Automated erythrocytes count in urine sediment (number/area)Ordered By: Gilson Castro on 08-19-2022 RBC Auto (Urine sed) [#/Area] 3-4 [HPF] 0-4 [facility] Automated erythrocytes count in urine sediment (number/area)Ordered By: Colten Fry on 08-19-2022 RBC Auto (Urine sed) [#/Area] None seen [HPF] 0-4 [facility] Automated leukocytes count i n urine sediment (number/area)Ordered By: Gilson Castro on 08-19-2022 WBC Auto (Urine sed) [#/Area] 20-49 [HPF] 0-4 [facility] Automated leukocytes count i n urine sediment (number/area)Ordered By: Colten Fry on 08-19-2022 WBC Auto (Urine sed) [#/Area] 5-9 [HPF] 0-4 [facility] Automated urine hyaline cast s count (number/volume)Ordered By: Gilson Castro on 08-19-2022 Hyaline casts Auto (U) [#/Vol] None seen [LPF] 0-1 [facility] Basophils Auto (Bld) [#/Vol] Ordered By: Gilson Castro on 08-19-2022 Basophils (Bld) [#/Vol] 0.0 10*3/uL 0.0-0.1 [facility] Basophils Auto (Bld) [#/Vol] Ordered By: Colten Fry on 08-19-2022 Basophils (Bld) [#/Vol] 0.0 10*3/uL 0.0-0.1 [facility] Basophils/100 WBC Auto (Bld) Ordered By: Gilson Castro on 08-19-2022 Basophils/100 WBC (Bld) 0.2 % . [facility] Basophils/100 WBC Auto (Bld) Ordered By: Colten Fry on 08-19-2022 Basophils/100 WBC (Bld) 0.4 % . [facility] Bilirubin Test strip Ql (U)O rdered By: Gilson Castro on 08-19-2022 Bilirubin Ql (U) Negative Negative [facility] Bilirubin Test strip Ql (U)O rdered By: Colten Fry on 08-19-2022 Bilirubin Ql (U) Negative Negative [facility] Blood hemoglobin measurement (mass/volume)Ordered By: Gilson Castro on 08-19-2022 Hemoglobin (Bld) [Mass/Vol] 13.2 g/dL 12.0-16.0 [facility] Blood hemoglobin measurement (mass/volume)Ordered By: Colten Fry on 08-19-2022 Hemoglobin (Bld) [Mass/Vol] 12.8 g/dL 12.0-16.0 [facility] Blood leukocytes automated c ount (number/volume)Ordered By: Gilson Castro on 08-19-2022 WBC (Bld) [#/Vol] 15.5 10*3/uL 4.5-13.5 [facility] Blood leukocytes automated c ount (number/volume)Ordered By: Colten Fry on 08-19-2022 WBC (Bld) [#/Vol] 13.5 10*3/uL 4.5-13.5 [facility] Body fluid albumin measureme nt (mass/volume)Ordered By: Gilson Castro on 08-19-2022 Albumin (Body fld) [Mass/Vol] 4.0 g/dL 3.2-5.5 [facility] Body fluid albumin measureme nt (mass/volume)Ordered By: Colten Fry on 08-19-2022 Albumin (Body fld) [Mass/Vol] 4.5 g/dL 3.2-5.5 [facility] COVID-19 SOFIAOrdered By: Pierce Castro on 08-19-2022 SARS-CoV+SARS-CoV-2 (COVID-19) Ag IA.rapid Ql (Resp) Negative Negative [facility] Comment on above: This is a duplicate [employer] SARS Antigen (JOSE A) result to be used for statistical tracking purpose only. Casts typing in urine sedime nt by light microscopyOrdered By: Gilson Castro on 08-19-2022 Casts LM Nom (Urine sed) None seen [LPF] None Seen [facility] Casts typing in urine sedime nt by light microscopyOrdered By: Colten Fry on 08-19-2022 Casts LM Nom (Urine sed) N/A [facility] Color Auto (U)Ordered By: Pierce Castro on 08-19-2022 Color (U) Yellow Yellow [facility] Color Auto (U)Ordered By: Vida Fry on 08-19-2022 Color (U) Yellow Yellow [facility] Creatinine and Glomerular fi ltration rate.predicted panel (S/P/Bld)Ordered By: Gilson Castro on 08-19-2022 Creatinine [Mass/Vol] 0.73 mg/dL 0.44-1.03 [facility] Creatinine and Glomerular fi ltration rate.predicted panel (S/P/Bld)Ordered By: Colten Fry on 08-19-2022 Creatinine [Mass/Vol] 0.82 mg/dL 0.44-1.03 [facility] Eosinophils Auto (Bld) [#/Vo l]Ordered By: Gilson Castro on 08-19-2022 Eosinophils (Bld) [#/Vol] 0.0 10*3/uL 0.0-0.7 [facility] Eosinophils Auto (Bld) [#/Vo l]Ordered By: Colten Fry on 08-19-2022 Eosinophils (Bld) [#/Vol] 0.0 10*3/uL 0.0-0.7 [facility] Eosinophils/100 WBC Auto (Bl d)Ordered By: Gilson Castro on 08-19-2022 Eosinophils/100 WBC (Bld) 0.2 % . [facility] Eosinophils/100 WBC Auto (Bl d)Ordered By: Colten Fry on 08-19-2022 Eosinophils/100 WBC (Bld) 0.0 % . [facility] Erythrocyte distribution wid th Auto (RBC) [Ratio]Ordered By: Gilson Castro on 08-19-2022 Erythrocyte distribution width (RBC) [Ratio] 14.4 % 11.9-15.3 [facility] Erythrocyte distribution wid th Auto (RBC) [Ratio]Ordered By: Colten Fry on 08-19-2022 Erythrocyte distribution width (RBC) [Ratio] 14.3 % 11.9-15.3 [facility] Estimated glomerular filtrat ion rate (GFR) non- AmericanOrdered By: Gilson Castro on 08-19-2022 GFR/1.73 sq M.predicted among non-blacks MDRD (S/P/Bld) [Vol rate/Area] > 60 mL/Min [facility] Estimated glomerular filtrat ion rate (GFR) non- AmericanOrdered By: Colten Fry on 08-19-2022 GFR/1.73 sq M.predicted among non-blacks MDRD (S/P/Bld) [Vol rate/Area] > 60 mL/Min [facility] Globulin Calc (S) [Mass/Vol] Ordered By: Gilson Castro on 08-19-2022 Globulin (S) [Mass/Vol] 2.7 g/dL [facility] Globulin Calc (S) [Mass/Vol] Ordered By: Colten Fry on 08-19-2022 Globulin (S) [Mass/Vol] 3.0 g/dL [facility] HCG ( test) IA.rapi d Ql (U)Ordered By: Gilson Castro on 08-19-2022 HCG ( test) Ql (U) Negative [facility] HCG ( test) IA.rapi d Ql (U)Ordered By: Colten Fry on 08-19-2022 HCG ( test) Ql (U) Negative [facility] Hematocrit Auto (Bld) [Volum e fraction]Ordered By: Gilson Castro on 08-19-2022 Hematocrit (Bld) [Volume fraction] 40.6 % 36.0-46.0 [facility] Hematocrit Auto (Bld) [Volum e fraction]Ordered By: Colten Fry on 08-19-2022 Hematocrit (Bld) [Volume fraction] 39.5 % 36.0-46.0 [facility] Ketones Auto test strip (U) [Mass/Vol]Ordered By: Gilson Castro on 08-19-2022 Ketones (U) [Mass/Vol] 4+ Negative [facility] Ketones Auto test strip (U) [Mass/Vol]Ordered By: Colten Fry on 08-19-2022 Ketones (U) [Mass/Vol] 3+ Negative Fi [facility] Laboratory - Chemistry and C hemistry - challengeOrdered By: Gilson Castro on 08-19-2022 Lipase [Catalytic activity/Vol] 24.0 U/L [facility] Magnesium [Mass/Vol] 2.0 mg/dL 1.6-2.6 [facility] Laboratory - Hematology and Cell countsOrdered By: Gilson Castro on 08-19-2022 Nucleated RBC/100 WBC (Bld) [Ratio] 0.1 % 0-0.5 [facility] Laboratory - Hematology and Cell countsOrdered By: Colten Fry on 08-19-2022 Nucleated RBC/100 WBC (Bld) [Ratio] 0.0 % 0-0.5 [facility] Laboratory - UrinalysisOrder ed By: Colten Fry on 08-19-2022 Hyaline casts LM Ql (Urine sed) None seen [LPF] 0-8 [facility] Lymphocytes Auto (Bld) [#/Vo l]Ordered By: Gilson Castro on 08-19-2022 Lymphocytes (Bld) [#/Vol] 2.3 10*3/uL 1.20-4.8 [facility] Lymphocytes Auto (Bld) [#/Vo l]Ordered By: Colten Fry on 08-19-2022 Lymphocytes (Bld) [#/Vol] 1.0 10*3/uL 1.20-4.8 [facility] Lymphocytes/100 WBC Auto (Bl d)Ordered By: Gilson Castro on 08-19-2022 Lymphocytes/100 WBC (Bld) 14.6 % . [facility] Lymphocytes/100 WBC Auto (Bl d)Ordered By: Colten Fry on 08-19-2022 Lymphocytes/100 WBC (Bld) 7.3 % . [facility] MCH Auto (RBC) [Entitic mass ]Ordered By: Gilson Castro on 08-19-2022 MCH (RBC) [Entitic mass] 27.9 pg 25.0-35.0 [facility] MCH Auto (RBC) [Entitic mass ]Ordered By: Colten Fry on 08-19-2022 MCH (RBC) [Entitic mass] 27.7 pg 25.0-35.0 [facility] MCHC Auto (RBC) [Mass/Vol]Or dered By: Gilson Castro on 08-19-2022 MCHC (RBC) [Mass/Vol] 32.6 g/dL 31.0-37.0 [facility] MCHC Auto (RBC) [Mass/Vol]Or dered By: Colten Fry on 08-19-2022 MCHC (RBC) [Mass/Vol] 32.3 g/dL 31.0-37.0 [facility] MCV Auto (RBC) [Entitic vol] Ordered By: Gilson Castro on 08-19-2022 MCV (RBC) [Entitic vol] 85.6 fL 78-102 [facility] MCV Auto (RBC) [Entitic vol] Ordered By: Colten Fry on 08-19-2022 MCV (RBC) [Entitic vol] 85.7 fL 78-102 [facility] Monocytes Auto (Bld) [#/Vol] Ordered By: Gilson Castro on 08-19-2022 Monocytes (Bld) [#/Vol] 1.1 10*3/uL 0.1-1.00 [facility] Monocytes Auto (Bld) [#/Vol] Ordered By: Colten Fry on 08-19-2022 Monocytes (Bld) [#/Vol] 0.3 10*3/uL 0.1-1.00 [facility] Monocytes/100 WBC Auto (Bld) Ordered By: Gilson Castro on 08-19-2022 Monocytes/100 WBC (Bld) 7.3 % . [facility] Monocytes/100 WBC Auto (Bld) Ordered By: Colten Fry on 08-19-2022 Monocytes/100 WBC (Bld) 2.1 % . [facility] Neutrophils Auto (Bld) [#/Vo l]Ordered By: Gilson Castro on 08-19-2022 Neutrophils (Bld) [#/Vol] 12.1 10*3/uL 1.2-7.7 [facility] Neutrophils Auto (Bld) [#/Vo l]Ordered By: Colten Fry on 08-19-2022 Neutrophils (Bld) [#/Vol] 12.2 10*3/uL 1.2-7.7 [facility] Neutrophils/100 WBC Auto (Bl d)Ordered By: Gilson Castro on 08-19-2022 Neutrophils/100 WBC (Bld) 77.7 % . [facility] Neutrophils/100 WBC Auto (Bl d)Ordered By: Colten Fry on 08-19-2022 Neutrophils/100 WBC (Bld) 90.2 % . [facility] Nitrite Test strip Ql (U)Ord ered By: Gilson Castro on 08-19-2022 Nitrite Ql (U) Negative Negative [facility] Nitrite Test strip Ql (U)Ord ered By: Colten Fry on 08-19-2022 Nitrite Ql (U) Negative Negative [facility] No Panel InformationOrdered By: Gilson Castro on 08-19-2022 Estimated GFR () > 60 mL/Min [facility] Comment on above: GFR estimated refere nce range: According to KDOQI guidelines, <60 ml/min/1.73m2 is sufficient to diagnose a patient with chronic kidney disease. Pharmacy Creatinine Clearance (Chem 121.95 [facility] > 60 mL/Min [facility] 2.0 mg/dL 1.6-2.6 [facility] 24.0 U/L 51 [facility] 121.95 [facility] 15.5 10*3/uL 4.5-13.5 [facility] 0.1 % 0-0.5 [facility] SARS Antigen (LFIA) [facility] No Panel InformationOrdered By: Colten Fry on 08-19-2022 None seen [LPF] 0-8 [facility] Estimated GFR () > 60 mL/Min [facility] Comment on above: GFR estimated refere nce range: According to KDOQI guidelines, <60 ml/min/1.73m2 is sufficient to diagnose a patient with chronic kidney disease. Pharmacy Creatinine Clearance (Chem 106.97 [facility] 13.5 10*3/uL 4.5-13.5 [facility] 0.0 % 0-0.5 [facility] > 60 mL/Min [facility] 106.97 [facility] Platelet mean volume Auto (B ld) [Entitic vol]Ordered By: Gilson Castro on 08-19-2022 Platelet mean volume (Bld) [Entitic vol] 8.8 fL 6.3-10.7 [facility] Platelet mean volume Auto (B ld) [Entitic vol]Ordered By: Colten Fry on 08-19-2022 Platelet mean volume (Bld) [Entitic vol] 8.7 fL 6.3-10.7 [facility] Platelets Auto (Bld) [#/Vol] Ordered By: Gilson Castro on 08-19-2022 Platelets (Bld) [#/Vol] 314 10*3/uL 150-450 [facility] Platelets Auto (Bld) [#/Vol] Ordered By: Colten Fry on 08-19-2022 Platelets (Bld) [#/Vol] 258 10*3/uL 150-450 [facility] Protein Auto test strip (U) [Mass/Vol]Ordered By: Gilson Castro on 08-19-2022 Protein (U) [Mass/Vol] 30 mg/dL Negative Fi [facility] Protein Auto test strip (U) [Mass/Vol]Ordered By: Colten Fry on 08-19-2022 Protein (U) [Mass/Vol] Trace mg/dL Negative F [facility] Protein [Mass/volume] in Ser um or PlasmaOrdered By: Gilson Castro on 08-19-2022 Protein [Mass/Vol] 6.7 g/dL 6.1-7.9 [facility] Protein [Mass/volume] in Ser um or PlasmaOrdered By: Colten Fry on 08-19-2022 Protein [Mass/Vol] 7.5 g/dL 6.1-7.9 [facility] RBC Auto (Bld) [#/Vol]Ordere d By: Gilson Castro on 08-19-2022 RBC (Bld) [#/Vol] 4.74 10*6/uL 4.10-5.10 [facility] RBC Auto (Bld) [#/Vol]Ordere d By: Colten Fry on 08-19-2022 RBC (Bld) [#/Vol] 4.60 10*6/uL 4.10-5.10 [facility] Serum or plasma alanine florez otransferase measurement without P-5'-P (enzymatic activiOrdered By: Gilson Castro on 08-19-2022 ALT No additional P-5'-P [Catalytic activity/Vol] 17 U/L [facility] Serum or plasma alanine florez otransferase measurement without P-5'-P (enzymatic activiOrdered By: Colten Fry on 08-19-2022 ALT No additional P-5'-P [Catalytic activity/Vol] 16 U/L [facility] Serum or plasma albumin/glob ulin mass ratioOrdered By: Gilson Castro on 08-19-2022 Albumin/Globulin [Mass ratio] 1.5 {ratio} [facility] Serum or plasma albumin/glob ulin mass ratioOrdered By: Colten Fry on 08-19-2022 Albumin/Globulin [Mass ratio] 1.5 {ratio} [facility] Serum or plasma alkaline justin sphatase measurement (enzymatic activity/volume)Ordered By: Gilson Castro on 08-19-2022 ALP [Catalytic activity/Vol] 51 U/L [facility] Serum or plasma alkaline justin sphatase measurement (enzymatic activity/volume)Ordered By: Colten Fry on 08-19-2022 ALP [Catalytic activity/Vol] 59 U/L [facility] Serum or plasma anion gap de terminationOrdered By: Gilson Castro on 08-19-2022 Anion gap [Moles/Vol] 13.8 mmol/L 6.0-15.0 [facility] Serum or plasma anion gap de terminationOrdered By: Colten Fry on 08-19-2022 Anion gap [Moles/Vol] 19.5 mmol/L 6.0-15.0 [facility] Serum or plasma aspartate am inotransferase measurement (enzymatic activity/volume)Ordered By: Gilson aCstro on 08-19-2022 AST [Catalytic activity/Vol] 17 U/L [facility] Serum or plasma aspartate am inotransferase measurement (enzymatic activity/volume)Ordered By: Colten Fry on 08-19-2022 AST [Catalytic activity/Vol] 20 U/L [facility] Serum or plasma calcium tammy urement (mass/volume)Ordered By: Gilson Castro on 08-19-2022 Calcium [Mass/Vol] 9.1 mg/dL 8.2-10.2 [facility] Serum or plasma calcium tammy urement (mass/volume)Ordered By: Colten Fry on 08-19-2022 Calcium [Mass/Vol] 9.8 mg/dL 8.2-10.2 [facility] Serum or plasma chloride judy surement (moles/volume)Ordered By: Gilson Castro on 08-19-2022 Chloride [Moles/Vol] 104 mmol/L 95-114 [facility] Serum or plasma chloride judy surement (moles/volume)Ordered By: Colten Fry on 08-19-2022 Chloride [Moles/Vol] 107 mmol/L 95-114 [facility] Serum or plasma creatinine m easurement with calculation of estimated glomerular filtrOrdered By: Gilson Castro on 08-19-2022 Creatinine and Glomerular filtration rate.predicted panel (S/P/Bld) 0.73 mg/dL 0.44-1.03 [facility] Serum or plasma creatinine m easurement with calculation of estimated glomerular filtrOrdered By: Colten Fry on 08-19-2022 Creatinine and Glomerular filtration rate.predicted panel (S/P/Bld) 0.82 mg/dL 0.44-1.03 [facility] Serum or plasma glucose tammy urement (mass/volume)Ordered By: Gilson Castro on 08-19-2022 Glucose [Mass/Vol] 108 mg/dL 70-100 [facility] Comment on above: ADA recommended refe rence [...] on 08-19-2022 Glucose [Mass/Vol] 131 mg/dL 70-100 [facility] Comment on above: ADA recommended refe rence [...] on 08-19-2022 Potassium [Moles/Vol] 3.1 mmol/L 3.5-5.1 [facility] Serum or plasma potassium me asurement (moles/volume)Ordered By: Colten Fry on 08-19-2022 Potassium [Moles/Vol] 3.9 mmol/L 3.5-5.1 [facility] Serum or plasma sodium measu rement (moles/volume)Ordered By: Gilson Castro on 08-19-2022 Sodium [Moles/Vol] 138 mmol/L 136-146 [facility] Serum or plasma sodium measu rement (moles/volume)Ordered By: Colten Fry on 08-19-2022 Sodium [Moles/Vol] 142 mmol/L 136-146 [facility] Serum or plasma total biliru bin measurement (mass/volume)Ordered By: Gilson Castro on 08-19-2022 Bilirubin [Mass/Vol] 0.5 mg/dL 0.3-1.2 [facility] Serum or plasma total biliru bin measurement (mass/volume)Ordered By: Colten Fry on 08-19-2022 Bilirubin [Mass/Vol] 0.6 mg/dL 0.3-1.2 [facility] Serum or plasma total carbon dioxide measurement (moles/volume)Ordered By: Gilson Castro on 08-19-2022 CO2 [Moles/Vol] 23.3 mmol/L 22.0-30.0 [facility] Serum or plasma total carbon dioxide measurement (moles/volume)Ordered By: Colten Fry on 08-19-2022 CO2 [Moles/Vol] 19.4 mmol/L 22.0-30.0 [facility] Serum or plasma urea nitroge n measurement (mass/volume)Ordered By: Gilson Castro on 08-19-2022 Urea nitrogen [Mass/Vol] 15 mg/dL 08-20 [facility] Serum or plasma urea nitroge n measurement (mass/volume)Ordered By: Colten Fry on 08-19-2022 Urea nitrogen [Mass/Vol] 14 mg/dL 08-20 [facility] Specific gravity Auto test s trip (U) [Rel density]Ordered By: Gilson Castro on 08-19-2022 Specific gravity (U) [Rel density] 1.026 1.001-1.03 0 [facility] Specific gravity Auto test s trip (U) [Rel density]Ordered By: Colten Fry on 08-19-2022 Specific gravity (U) [Rel density] 1.023 1.001-1.03 0 [facility] Squamous epithelial cells de tection in urine sediment by light microscopyOrdered By: Gilson Castro on 08-19-2022 Epithelial cells.squamous LM Ql (Urine sed) 20-30 [HPF] 0-2 [facility] Squamous epithelial cells de tection in urine sediment by light microscopyOrdered By: Colten Fry on 08-19-2022 Epithelial cells.squamous LM Ql (Urine sed) 20-30 [HPF] 0-2 [facility] Urine bacteria detection by automated methodOrdered By: Gilson Castro on 08-19-2022 Bacteria Auto Ql (U) 2+ None Seen [facility] Urine bacteria detection by automated methodOrdered By: Colten Fry on 08-19-2022 Bacteria Auto Ql (U) 1+ None Seen [facility] Urine clarity by refractomet ry automatedOrdered By: Gilson Castro on 08-19-2022 Clarity Refractometry automated (U) Turbid Clear [facility] Urine clarity by refractomet ry automatedOrdered By: Colten Fry on 08-19-2022 Clarity Refractometry automated (U) Cloudy Clear [facility] Urine glucose measurement by automated test strip (mass/volume)Ordered By: Gilson Castro on 08-19-2022 Glucose Auto test strip (U) [Mass/Vol] Normal mg/dL Normal [facility] Urine glucose measurement by automated test strip (mass/volume)Ordered By: Colten Fry on 08-19-2022 Glucose Auto test strip (U) [Mass/Vol] Normal mg/dL Normal [facility] Urine hemoglobin detection b y automated test stripOrdered By: Gilson Castro on 08-19-2022 Hemoglobin Auto test strip Ql (U) Negative Negative [facility] Urine hemoglobin detection b y automated test stripOrdered By: Colten Fry on 08-19-2022 Hemoglobin Auto test strip Ql (U) Negative Negative [facility] Urine leukocyte esterase det ection by automated test stripOrdered By: Gilson Castro on 08-19-2022 Leukocyte esterase Auto test strip Ql (U) 2+ Negative [facility] Urine leukocyte esterase det ection by automated test stripOrdered By: Colten Fry on 08-19-2022 Leukocyte esterase Auto test strip Ql (U) 1+ Negative [facility] Urobilinogen Auto test strip (U) [Mass/Vol]Ordered By: Gilson Castro on 08-19-2022 Urobilinogen (U) [Mass/Vol] Normal mg/dL Normal [facility] Urobilinogen Auto test strip (U) [Mass/Vol]Ordered By: Colten Fry on 08-19-2022 Urobilinogen (U) [Mass/Vol] Normal mg/dL Normal [facility] pH Auto test strip (U)Ordere d By: Gilson Castro on 08-19-2022 pH (U) 8.0 [pH] 5.0-9.0 [facility] pH Auto test strip (U)Ordere d By: Colten Fry on 08-19-2022 pH (U) 6.0 [pH] 5.0-9.0 [facility] COVID-19 SOFIAOrdered By: Lul Rivera on 08-18-2022 SARS-CoV+SARS-CoV-2 (COVID-19) Ag IA.rapid Ql (Resp) Negative Negative [facility] Comment on above: This is a duplicate [facility] SARS Antigen (JOSE A) result to be used for statistical tracking purpose only. No Panel InformationOrdered By: Joss Rivera on 08-18-2022 SARS Antigen (LFIA) [facility] Basophils Auto (Bld) [#/Vol] Ordered By: Modesta Chand on 06-25-2022 Basophils (Bld) [#/Vol] 0.1 10*3/uL 0.0-0.1 [facility] Basophils/100 WBC Auto (Bld) Ordered By: Modesta Chand on 06-25-2022 Basophils/100 WBC (Bld) 1.2 % . [facility] Blood hemoglobin measurement (mass/volume)Ordered By: Modesta Chand on 06-25-2022 Hemoglobin (Bld) [Mass/Vol] 13.8 g/dL 12.0-16.0 [facility] Blood leukocytes automated c ount (number/volume)Ordered By: Modesta Chand on 06-25-2022 WBC (Bld) [#/Vol] 7.9 10*3/uL 4.5-13.5 [facility] Body fluid albumin measureme nt (mass/volume)Ordered By: Modesta Chand on 06-25-2022 Albumin (Body fld) [Mass/Vol] 4.5 g/dL 3.2-5.5 [facility] CT biopsyOrdered By: Yasmine Chand on 06-25-2022 Transferrin [Mass/Vol] 328 mg/dL 180-380 [facility] Creatinine and Glomerular fi ltration rate.predicted panel (S/P/Bld)Ordered By: Modesta Chand on 06-25-2022 Creatinine [Mass/Vol] 0.67 mg/dL 0.44-1.03 [facility] Eosinophils Auto (Bld) [#/Vo l]Ordered By: Modesta Chand on 06-25-2022 Eosinophils (Bld) [#/Vol] 0.6 10*3/uL 0.0-0.7 [facility] Eosinophils/100 WBC Auto (Bl d)Ordered By: Modesta Chand on 06-25-2022 Eosinophils/100 WBC (Bld) 7.2 % . [facility] Erythrocyte distribution wid th Auto (RBC) [Ratio]Ordered By: Modesta Chand on 06-25-2022 Erythrocyte distribution width (RBC) [Ratio] 13.6 % 11.9-15.3 [facility] Estimated glomerular filtrat ion rate (GFR) non- AmericanOrdered By: Modesta Chand on 06-25-2022 GFR/1.73 sq M.predicted among non-blacks MDRD (S/P/Bld) [Vol rate/Area] > 60 mL/Min [facility] Ferritin [Mass/volume] in Se rum or PlasmaOrdered By: Modesta Chand on 06-25-2022 Ferritin [Mass/Vol] 28.5 ng/mL 11-306.8 [facility] Globulin Calc (S) [Mass/Vol] Ordered By: Modesta Chand on 06-25-2022 Globulin (S) [Mass/Vol] 2.5 g/dL [facility] Hematocrit Auto (Bld) [Volum e fraction]Ordered By: Modesta Chand on 06-25-2022 Hematocrit (Bld) [Volume fraction] 42.3 % 36.0-46.0 [facility] Iron [Mass/volume] in Serum or PlasmaOrdered By: Modesta Chand on 06-25-2022 Iron [Mass/Vol] 52 ug/dL 40-150 [facility] Iron binding capacity [Mass/ volume] in Serum or PlasmaOrdered By: Modesta Chand on 06-25-2022 Iron binding capacity [Mass/Vol] 459 ug/dL 255-450 [facility] Iron saturation [Mass Fracti on] in Serum or PlasmaOrdered By: Modesta Chand on 06-25-2022 Iron saturation [Mass fraction] 11.0 % 20-50 [facility] Laboratory - Hematology and Cell countsOrdered By: Modesta Chand on 06-25-2022 Nucleated RBC/100 WBC (Bld) [Ratio] 0.0 % 0-0.5 [facility] Lymphocytes Auto (Bld) [#/Vo l]Ordered By: Modesta Chand on 06-25-2022 Lymphocytes (Bld) [#/Vol] 2.1 10*3/uL 1.20-4.8 [facility] Lymphocytes/100 WBC Auto (Bl d)Ordered By: Modesta Chand on 06-25-2022 Lymphocytes/100 WBC (Bld) 26.9 % . [facility] MCH Auto (RBC) [Entitic mass ]Ordered By: Modesta Chand on 06-25-2022 MCH (RBC) [Entitic mass] 28.1 pg 25.0-35.0 [facility] MCHC Auto (RBC) [Mass/Vol]Or dered By: Modesta Chand on 06-25-2022 MCHC (RBC) [Mass/Vol] 32.7 g/dL 31.0-37.0 [facility] MCV Auto (RBC) [Entitic vol] Ordered By: Modesta Chand on 06-25-2022 MCV (RBC) [Entitic vol] 85.8 fL 78-102 [facility] Monocytes Auto (Bld) [#/Vol] Ordered By: Modesta Chand on 06-25-2022 Monocytes (Bld) [#/Vol] 0.6 10*3/uL 0.1-1.00 [facility] Monocytes/100 WBC Auto (Bld) Ordered By: Modesta Chand on 06-25-2022 Monocytes/100 WBC (Bld) 7.2 % . [facility] Neutrophils Auto (Bld) [#/Vo l]Ordered By: Modesta Chand on 06-25-2022 Neutrophils (Bld) [#/Vol] 4.5 10*3/uL 1.2-7.7 [facility] Neutrophils/100 WBC Auto (Bl d)Ordered By: Modesta Chand on 06-25-2022 Neutrophils/100 WBC (Bld) 57.5 % . [facility] No Panel InformationOrdered By: Modesta Chand on 06-25-2022 25-Hydroxy Vitamin D Total 35.9 ng/mL 30-100 [facility] Comment on above: VITAMIN D STATUS 25( [place])VITAMIN D RANGE (ng/mL) Deficient <20 Insufficient 20 to <30 Sufficient 30 to 100 Reference: Danica MF,Chayo WOODRUFF, Sony GUERRERO, et al. Evaluation,treatment, and prevention of vitamin D deficiency; an Endocrine Society clinical practice guideline. JCEM. 2010; 96(7):1911-30. Absolute Reticulocyte Count 0.066 10*6/uL 0.024-0.08 4 [facility] Estimated GFR () > 60 mL/Min [facility] Comment on above: GFR estimated refere nce range: According to KDOQI guidelines, <60 ml/min/1.73m2 is sufficient to diagnose a patient with chronic kidney disease. Percent Reticulocyte Count 1.3 % 0.5-1.5 [facility] Pharmacy Creatinine Clearance (Chem N/A [facility] Platelet mean volume Auto (B ld) [Entitic vol]Ordered By: Modesta Chand on 06-25-2022 Platelet mean volume (Bld) [Entitic vol] 9.0 fL 6.3-10.7 [facility] Platelets Auto (Bld) [#/Vol] Ordered By: Modesta Chand on 06-25-2022 Platelets (Bld) [#/Vol] 263 10*3/uL 150-450 [facility] Protein [Mass/volume] in Ser um or PlasmaOrdered By: Modesta Chand on 06-25-2022 Protein [Mass/Vol] 7.0 g/dL 6.1-7.9 [facility] RBC Auto (Bld) [#/Vol]Ordere d By: Modesta Chand on 06-25-2022 RBC (Bld) [#/Vol] 4.94 10*6/uL 4.10-5.10 [facility] Serum or plasma alanine florez otransferase measurement without P-5'-P (enzymatic activiOrdered By: Modesta Chand on 06-25-2022 ALT No additional P-5'-P [Catalytic activity/Vol] 18 U/L 10-60 [facility] Serum or plasma albumin/glob ulin mass ratioOrdered By: Modesta Chand on 06-25-2022 Albumin/Globulin [Mass ratio] 1.8 {ratio} [facility] Serum or plasma alkaline justin sphatase measurement (enzymatic activity/volume)Ordered By: Modesta Chand on 06-25-2022 ALP [Catalytic activity/Vol] 65 U/L 32-92 [facility] Serum or plasma aspartate am inotransferase measurement (enzymatic activity/volume)Ordered By: Modesta Chand on 06-25-2022 AST [Catalytic activity/Vol] 18 U/L 10-42 [facility] Serum or plasma calcium tammy urement (mass/volume)Ordered By: Modesta Chand on 06-25-2022 Calcium [Mass/Vol] 10.2 mg/dL 8.2-10.2 [facility] Serum or plasma chloride judy surement (moles/volume)Ordered By: Modesta Chand on 06-25-2022 Chloride [Moles/Vol] 102 mmol/L 95-114 [facility] Serum or plasma glucose tammy urement (mass/volume)Ordered By: Modesta Chand on 06-25-2022 Glucose [Mass/Vol] 87 mg/dL 70-100 [facility] Comment on above: ADA recommended refe rence range Random Glucose Reference Range is dependent on time and content of last meal. Glucose of more than 200 mg/dL in a nonstressed, ambulatory subject supports the diagnosis of Diabetes Mellitus. Serum or plasma potassium me asurement (moles/volume)Ordered By: Modesta Chand on 06-25-2022 Potassium [Moles/Vol] 4.4 mmol/L 3.5-5.1 [facility] Serum or plasma sodium measu rement (moles/volume)Ordered By: Modesta Chand on 06-25-2022 Sodium [Moles/Vol] 137 mmol/L 136-146 [facility] Serum or plasma total biliru bin measurement (mass/volume)Ordered By: Modesta Chand on 06-25-2022 Bilirubin [Mass/Vol] 0.4 mg/dL 0.3-1.2 [facility] Serum or plasma total carbon dioxide measurement (moles/volume)Ordered By: Modesta Chand on 06-25-2022 CO2 [Moles/Vol] 23.8 mmol/L 22.0-30.0 [facility] Serum or plasma urea nitroge n measurement (mass/volume)Ordered By: Modesta Chand on 06-25-2022 Urea nitrogen [Mass/Vol] 14 mg/dL 9-23 [facility] TSH DL <= 0.005 mIU/L QnOrde red By: Modesta Chand on 06-25-2022 TSH Qn 1.05 m[IU]/L 0.45-5.33 [facility] Thyroxine (T4) free [Mass/vo lume] in Serum or PlasmaOrdered By: Modesta Chand on 06-25-2022 Free T4 [Mass/Vol] 0.74 ng/dL 0.61-1.12 [facility] HCG ( test) IA.rapi d Ql (U)Ordered By: Brennen Britt on 06-09-2022 HCG ( test) Ql (U) Negative [facility] COVID-19 Positive/NegativeOr dered By: Brennen Britt on 06-07-2022 SARS-CoV-2 (COVID-19) N gene JANAK+probe Ql (Resp) Negative Negative [facility] Comment on above: Testing for SARS-CoV -2 by RT-PCR This test was developed and its performance characteristics determined by [employer] ([employer]) and validated at the [facility]. This test has not been FDA [...] on 05-26-2022 Albumin [Mass/Vol] 3.9 g/dL 3.2-5.5 [facility] Basophils Auto (Bld) [#/Vol] Ordered By: Modesta Chand on 05-26-2022 Basophils (Bld) [#/Vol] 0.1 10*3/uL 0.0-0.1 [facility] Basophils/100 WBC Auto (Bld) Ordered By: Modesta Chand on 05-26-2022 Basophils/100 WBC (Bld) 1.1 % . [facility] Blood hemoglobin measurement (mass/volume)Ordered By: Modesta Chand on 05-26-2022 Hemoglobin (Bld) [Mass/Vol] 13.6 g/dL 12.0-16.0 [facility] Blood leukocytes automated c ount (number/volume)Ordered By: Modesta Chand on 05-26-2022 WBC (Bld) [#/Vol] 10.6 10*3/uL 4.5-13.5 [facility] C reactive protein [Mass/vol ume] in Serum or PlasmaOrdered By: Modesta Chand on 05-26-2022 CRP [Mass/Vol] 0.6 mg/dL 0.0-1.0 [facility] CT biopsyOrdered By: Yasmine Chand on 05-26-2022 Transferrin [Mass/Vol] 292 mg/dL 180-380 [facility] Creatinine and Glomerular fi ltration rate.predicted panel (S/P/Bld)Ordered By: Modesta Chand on 05-26-2022 Creatinine [Mass/Vol] 0.63 mg/dL 0.44-1.03 [facility] Eosinophils Auto (Bld) [#/Vo l]Ordered By: Modesta Chand on 05-26-2022 Eosinophils (Bld) [#/Vol] 0.4 10*3/uL 0.0-0.7 [facility] Eosinophils/100 WBC Auto (Bl d)Ordered By: Modesta Chand on 05-26-2022 Eosinophils/100 WBC (Bld) 3.6 % . [facility] Erythrocyte distribution wid th Auto (RBC) [Ratio]Ordered By: Modesta Chand on 05-26-2022 Erythrocyte distribution width (RBC) [Ratio] 13.7 % 11.9-15.3 [facility] Erythrocyte sedimentation ra te by Photometric methodOrdered By: Modesta Chand on 05-26-2022 ESR Photometric method (Bld) [Velocity] 5 mm/hr 0-19 [facility] Estimated glomerular filtrat ion rate (GFR) non- AmericanOrdered By: Modesta Chand on 05-26-2022 GFR/1.73 sq M.predicted among non-blacks MDRD (S/P/Bld) [Vol rate/Area] > 60 mL/Min [facility] Ferritin [Mass/volume] in Se rum or PlasmaOrdered By: Modesta Chand on 05-26-2022 Ferritin [Mass/Vol] 14.2 ng/mL 11-306.8 [facility] Folate [Mass/volume] in Seru m or PlasmaOrdered By: Modesta Chand on 05-26-2022 Folate [Mass/Vol] 13.0 ng/mL >5.9 [facility] Comment on above: Folate reference ran ge: >5.9 ng/ml The WHO technical consultation on folate and vitamin b12 deficiencies has determined that folate concentrations less than 4 ng/ml are considered deficient. Globulin Calc (S) [Mass/Vol] Ordered By: Modesta Chand on 05-26-2022 Globulin (S) [Mass/Vol] 2.3 g/dL [facility] Glucose mean value [Mass/vol ume] in Blood Estimated from glycated hemoglobinOrdered By: Modesta Chand on 05-26-2022 Average glucose Estimated from glycated hemoglobin (Bld) [Mass/Vol] 111 mg/dL [facility] Hematocrit Auto (Bld) [Volum e fraction]Ordered By: Modesta Chand on 05-26-2022 Hematocrit (Bld) [Volume fraction] 41.4 % 36.0-46.0 [facility] Hemoglobin A1c percentageOrd ered By: Modesta Chand on 05-26-2022 HbA1c (Bld) [Mass fraction] 5.5 % 4.3-5.6 [facility] Comment on above: Increased risk for d iabetes: 5.7 - 6.4 diabetes: >6.4 glycemic control for adults with diabetes: <7.0 Iron [Mass/volume] in Serum or PlasmaOrdered By: Modesta Chand on 05-26-2022 Iron [Mass/Vol] 63 ug/dL 40-150 [facility] Iron binding capacity [Mass/ volume] in Serum or PlasmaOrdered By: Modesta Chand on 05-26-2022 Iron binding capacity [Mass/Vol] 409 ug/dL 255-450 [facility] Iron saturation [Mass Fracti on] in Serum or PlasmaOrdered By: Modesta Chand on 05-26-2022 Iron saturation [Mass fraction] 15.0 % 20-50 [facility] Laboratory - Chemistry and C hemistry - challengeOrdered By: Modesta Chand on 05-26-2022 Cobalamin (Vitamin B12) [Mass/Vol] 329 pg/mL 180-914 [facility] Laboratory - Hematology and Cell countsOrdered By: Modesta Chand on 05-26-2022 Nucleated RBC/100 WBC (Bld) [Ratio] 0.0 % 0-0.5 [facility] Lymphocytes Auto (Bld) [#/Vo l]Ordered By: Modesta Chand on 05-26-2022 Lymphocytes (Bld) [#/Vol] 2.3 10*3/uL 1.20-4.8 [facility] Lymphocytes/100 WBC Auto (Bl d)Ordered By: Modesta Chand on 05-26-2022 Lymphocytes/100 WBC (Bld) 21.6 % . [facility] MCH Auto (RBC) [Entitic mass ]Ordered By: Modesta Chand on 05-26-2022 MCH (RBC) [Entitic mass] 28.6 pg 25.0-35.0 [facility] MCHC Auto (RBC) [Mass/Vol]Or dered By: Modesta Chand on 05-26-2022 MCHC (RBC) [Mass/Vol] 33.0 g/dL 31.0-37.0 [facility] MCV Auto (RBC) [Entitic vol] Ordered By: Modesta Chand on 05-26-2022 MCV (RBC) [Entitic vol] 86.6 fL 78-102 [facility] Monocytes Auto (Bld) [#/Vol] Ordered By: Modesta Chand on 05-26-2022 Monocytes (Bld) [#/Vol] 0.6 10*3/uL 0.1-1.00 [facility] Monocytes/100 WBC Auto (Bld) Ordered By: Modesta Chand on 05-26-2022 Monocytes/100 WBC (Bld) 5.9 % . [facility] Neutrophils Auto (Bld) [#/Vo l]Ordered By: Modesta Chand on 05-26-2022 Neutrophils (Bld) [#/Vol] 7.2 10*3/uL 1.2-7.7 [facility] Neutrophils/100 WBC Auto (Bl d)Ordered By: Modesta Chand on 05-26-2022 Neutrophils/100 WBC (Bld) 67.8 % . [facility] No Panel InformationOrdered By: Modesta Chand on 05-26-2022 25-Hydroxy Vitamin D Total 26.9 ng/mL 30-100 [facility] Comment on above: VITAMIN D STATUS 25( [place])VITAMIN D RANGE (ng/mL) Deficient <20 Insufficient 20 to <30 Sufficient 30 to 100 Reference: Danica MF,Chayo NC, Sony GUERRERO, et al. Evaluation,treatment, and prevention of vitamin D deficiency; an Endocrine Society clinical practice guideline. JCEM. 2010; 96(7):1911-30. Estimated GFR () > 60 mL/Min [facility] Comment on above: GFR estimated refere nce range: According to KDOQI guidelines, <60 ml/min/1.73m2 is sufficient to diagnose a patient with chronic kidney disease. Pharmacy Creatinine Clearance (Chem N/A [facility] Platelet mean volume Auto (B ld) [Entitic vol]Ordered By: Modesta Chand on 05-26-2022 Platelet mean volume (Bld) [Entitic vol] 8.9 fL 6.3-10.7 [facility] Platelets Auto (Bld) [#/Vol] Ordered By: Modesta Chand on 05-26-2022 Platelets (Bld) [#/Vol] 286 10*3/uL 150-450 [facility] Protein [Mass/volume] in Ser um or PlasmaOrdered By: Modesta Chand on 05-26-2022 Protein [Mass/Vol] 6.2 g/dL 6.1-7.9 [facility] RBC Auto (Bld) [#/Vol]Ordere d By: Modesta Chand on 05-26-2022 RBC (Bld) [#/Vol] 4.78 10*6/uL 4.10-5.10 [facility] Serum nuclear antibody titer Ordered By: Modesta Chand on 05-26-2022 Nuclear Ab (S) [Titer] Negative . [facility] Comment on above: Negative <1:80 Borderline 1:80 Positive >1:80 ICAP nomenclature: AC-0 For more information about Hep-2 cell patterns use ANApatterns.org, the official website for the International Consensus on Antinuclear Antibody (EDMOND) Patterns (ICAP). Performed at: [facility] [place] [id number] Consulting Engineer: James Nelson PhD, Phone: [phone] Serum or plasma alanine florez otransferase measurement without P-5'-P (enzymatic activiOrdered By: Modesta Chand on 05-26-2022 ALT No additional P-5'-P [Catalytic activity/Vol] 50 U/L 10-60 [facility] Serum or plasma albumin/glob ulin mass ratioOrdered By: Modesta Chand on 05-26-2022 Albumin/Globulin [Mass ratio] 1.7 {ratio} [facility] Serum or plasma alkaline justin sphatase measurement (enzymatic activity/volume)Ordered By: Modesta Chand on 05-26-2022 ALP [Catalytic activity/Vol] 58 U/L 32-92 [facility] Serum or plasma aspartate am inotransferase measurement (enzymatic activity/volume)Ordered By: Modesta Chand on 05-26-2022 AST [Catalytic activity/Vol] 25 U/L 10-42 [facility] Serum or plasma calcium tammy urement (mass/volume)Ordered By: Modesta Chand on 05-26-2022 Calcium [Mass/Vol] 9.3 mg/dL 8.2-10.2 [facility] Serum or plasma chloride judy surement (moles/volume)Ordered By: Modesta Chand on 05-26-2022 Chloride [Moles/Vol] 103 mmol/L 95-114 [facility] Serum or plasma glucose tammy urement (mass/volume)Ordered By: Modesta Chand on 05-26-2022 Glucose [Mass/Vol] 111 mg/dL 70-100 [facility] Comment on above: ADA recommended refe rence range Random Glucose Reference Range is dependent on time and content of last meal. Glucose of more than 200 mg/dL in a nonstressed, ambulatory subject supports the diagnosis of Diabetes Mellitus. Serum or plasma potassium me asurement (moles/volume)Ordered By: Modesta Chand on 05-26-2022 Potassium [Moles/Vol] 4.3 mmol/L 3.5-5.1 [facility] Serum or plasma sodium measu rement (moles/volume)Ordered By: Modesta Chand on 05-26-2022 Sodium [Moles/Vol] 137 mmol/L 136-146 [facility] Serum or plasma total biliru bin measurement (mass/volume)Ordered By: Modesta Chand on 05-26-2022 Bilirubin [Mass/Vol] 0.5 mg/dL 0.3-1.2 [facility] Serum or plasma total carbon dioxide measurement (moles/volume)Ordered By: Modesta Chand on 05-26-2022 CO2 [Moles/Vol] 24.9 mmol/L 22.0-30.0 [facility] Serum or plasma urea nitroge n measurement (mass/volume)Ordered By: Modesta Chand on 05-26-2022 Urea nitrogen [Mass/Vol] 9 mg/dL 9-23 [facility] Urine culture routineOrdered By: Gilson Castro on 05-18-2022 Bacteria identified Cx Nom (U) 2 Days [facility] Amphetamine Screen Ql (U)Ord ered By: Gilson Castro on 05-16-2022 Amphetamines Ql (U) Negative Negative [facility] Automated erythrocytes count in urine sediment (number/area)Ordered By: Gilson Castro on 05-16-2022 RBC Auto (Urine sed) [#/Area] 3-4 [HPF] 0-4 [facility] Automated leukocytes count i n urine sediment (number/area)Ordered By: Gilson Castro on 05-16-2022 WBC Auto (Urine sed) [#/Area] 5-9 [HPF] 0-4 [facility] Automated urine hyaline cast s count (number/volume)Ordered By: Gilson Castro on 05-16-2022 Hyaline casts Auto (U) [#/Vol] None seen [LPF] 0-1 [facility] Barbiturates [Presence] in U rineOrdered By: Gilson Castro on 05-16-2022 Barbiturates Ql (U) Positive Negative [facility] Basophils Auto (Bld) [#/Vol] Ordered By: Gilson Castro on 05-16-2022 Basophils (Bld) [#/Vol] 0.0 10*3/uL 0.0-0.1 [facility] Basophils/100 WBC Auto (Bld) Ordered By: Gilson Castro on 05-16-2022 Basophils/100 WBC (Bld) 0.4 % . [facility] Benzodiazepines [Presence] i n UrineOrdered By: Gilson Castro on 05-16-2022 Benzodiazepines Ql (U) Negative Negative [facility] Bilirubin Test strip Ql (U)O rdered By: Gilson Castro on 05-16-2022 Bilirubin Ql (U) Negative Negative [facility] Blood hemoglobin measurement (mass/volume)Ordered By: Gilson Castro on 05-16-2022 Hemoglobin (Bld) [Mass/Vol] 13.4 g/dL 12.0-16.0 [facility] Blood leukocytes automated c ount (number/volume)Ordered By: Gilson Castro on 05-16-2022 WBC (Bld) [#/Vol] 10.0 10*3/uL 4.5-13.5 [facility] Body fluid albumin measureme nt (mass/volume)Ordered By: Gilson Castro on 05-16-2022 Albumin (Body fld) [Mass/Vol] 4.3 g/dL 3.2-5.5 [facility] Cannabinoids [Presence] in U rine by Screen methodOrdered By: Gilson Castro on 05-16-2022 Cannabinoids Screen Ql (U) Positive Negative [facility] Comment on above: These are unconfirme [...] (Urine sed) None seen [LPF] None Seen [facility] Color Auto (U)Ordered By: Pierce Castro on 05-16-2022 Color (U) Yellow Yellow [facility] Creatinine and Glomerular fi ltration rate.predicted panel (S/P/Bld)Ordered By: Gilson Castro on 05-16-2022 Creatinine [Mass/Vol] 0.80 mg/dL 0.44-1.03 [facility] Eosinophils Auto (Bld) [#/Vo l]Ordered By: Gilson Castro on 05-16-2022 Eosinophils (Bld) [#/Vol] 0.1 10*3/uL 0.0-0.7 [facility] Eosinophils/100 WBC Auto (Bl d)Ordered By: Gilson Castro on 05-16-2022 Eosinophils/100 WBC (Bld) 0.7 % . [facility] Erythrocyte distribution wid th Auto (RBC) [Ratio]Ordered By: Gilson Castro on 05-16-2022 Erythrocyte distribution width (RBC) [Ratio] 13.4 % 11.9-15.3 [facility] Estimated glomerular filtrat ion rate (GFR) non- AmericanOrdered By: Gilson Castro on 05-16-2022 GFR/1.73 sq M.predicted among non-blacks MDRD (S/P/Bld) [Vol rate/Area] > 60 mL/Min [facility] Globulin Calc (S) [Mass/Vol] Ordered By: Gilson Castro on 05-16-2022 Globulin (S) [Mass/Vol] 2.7 g/dL [facility] HCG ( test) IA.rapi d Ql (U)Ordered By: Gilson Castro on 05-16-2022 HCG ( test) Ql (U) Negative [facility] Hematocrit Auto (Bld) [Volum e fraction]Ordered By: Gilson Castro on 05-16-2022 Hematocrit (Bld) [Volume fraction] 39.4 % 36.0-46.0 [facility] Ketones Auto test strip (U) [Mass/Vol]Ordered By: Gilson Castro on 05-16-2022 Ketones (U) [Mass/Vol] 3+ Negative [facility] Laboratory - Chemistry and C hemistry - challengeOrdered By: Gilson Castro on 05-16-2022 Lipase [Catalytic activity/Vol] 26.0 U/L 22-51 [facility] Laboratory - Drug toxicology Ordered By: Gilson Castro on 05-16-2022 Opiates Ql (U) Negative Negative [facility] Laboratory - Hematology and Cell countsOrdered By: Gilson Castro on 05-16-2022 Nucleated RBC/100 WBC (Bld) [Ratio] 0.0 % 0-0.5 [facility] Lymphocytes Auto (Bld) [#/Vo l]Ordered By: Gilson Castro on 05-16-2022 Lymphocytes (Bld) [#/Vol] 1.9 10*3/uL 1.20-4.8 [facility] Lymphocytes/100 WBC Auto (Bl d)Ordered By: Gilson Castro on 05-16-2022 Lymphocytes/100 WBC (Bld) 18.7 % . [facility] MCH Auto (RBC) [Entitic mass ]Ordered By: Gilson Castro on 05-16-2022 MCH (RBC) [Entitic mass] 28.6 pg 25.0-35.0 [facility] MCHC Auto (RBC) [Mass/Vol]Or dered By: Gilson aCstro on 05-16-2022 MCHC (RBC) [Mass/Vol] 34.1 g/dL 31.0-37.0 [facility] MCV Auto (RBC) [Entitic vol] Ordered By: Gilson Castro on 05-16-2022 MCV (RBC) [Entitic vol] 84.0 fL 78-102 [facility] Monocytes Auto (Bld) [#/Vol] Ordered By: Gilson Castro on 05-16-2022 Monocytes (Bld) [#/Vol] 0.9 10*3/uL 0.1-1.00 [facility] Monocytes/100 WBC Auto (Bld) Ordered By: Gilson Castro on 05-16-2022 Monocytes/100 WBC (Bld) 9.2 % . [facility] Neutrophils Auto (Bld) [#/Vo l]Ordered By: Gilson Castro on 05-16-2022 Neutrophils (Bld) [#/Vol] 7.1 10*3/uL 1.2-7.7 [facility] Neutrophils/100 WBC Auto (Bl d)Ordered By: Gilson Castro on 05-16-2022 Neutrophils/100 WBC (Bld) 71.0 % . [facility] Nitrite Test strip Ql (U)Ord ered By: Gilson Castro on 05-16-2022 Nitrite Ql (U) Negative Negative [facility] No Panel InformationOrdered By: Gilson Castro on 05-16-2022 Estimated GFR () > 60 mL/Min [facility] Comment on above: GFR estimated refere nce range: According to KDOQI guidelines, <60 ml/min/1.73m2 is sufficient to diagnose a patient with chronic kidney disease. Pharmacy Creatinine Clearance (Chem 109.65 [facility] Phencyclidine Screen Ql (U)O rdered By: Gilson Castro on 05-16-2022 Phencyclidine Ql (U) Negative Negative [facility] Platelet mean volume Auto (B ld) [Entitic vol]Ordered By: Gilson Castro on 05-16-2022 Platelet mean volume (Bld) [Entitic vol] 8.5 fL 6.3-10.7 [facility] Platelets Auto (Bld) [#/Vol] Ordered By: Gilson Castro on 05-16-2022 Platelets (Bld) [#/Vol] 241 10*3/uL 150-450 [facility] Protein Auto test strip (U) [Mass/Vol]Ordered By: Gilson Castro on 05-16-2022 Protein (U) [Mass/Vol] Trace mg/dL Negative [facility] Protein [Mass/volume] in Ser um or PlasmaOrdered By: Gilson Castro on 05-16-2022 Protein [Mass/Vol] 7.0 g/dL 6.1-7.9 [facility] RBC Auto (Bld) [#/Vol]Ordere d By: Gilson Castro on 05-16-2022 RBC (Bld) [#/Vol] 4.69 10*6/uL 4.10-5.10 [facility] Serum or plasma alanine florez otransferase measurement without P-5'-P (enzymatic activiOrdered By: Gilson Castro on 05-16-2022 ALT No additional P-5'-P [Catalytic activity/Vol] 23 U/L 10-60 [facility] Serum or plasma albumin/glob ulin mass ratioOrdered By: Gilson Castro on 05-16-2022 Albumin/Globulin [Mass ratio] 1.6 {ratio} [facility] Serum or plasma alkaline justin sphatase measurement (enzymatic activity/volume)Ordered By: Gilson Castro on 05-16-2022 ALP [Catalytic activity/Vol] 58 U/L 32-92 [facility] Serum or plasma aspartate am inotransferase measurement (enzymatic activity/volume)Ordered By: Gilson Castro on 05-16-2022 AST [Catalytic activity/Vol] 22 U/L 10-42 [facility] Serum or plasma calcium tammy urement (mass/volume)Ordered By: Gilson Castro on 05-16-2022 Calcium [Mass/Vol] 9.2 mg/dL 8.2-10.2 [facility] Serum or plasma chloride judy surement (moles/volume)Ordered By: Gilson Castro on 05-16-2022 Chloride [Moles/Vol] 97 mmol/L 95-114 [facility] Serum or plasma glucose tammy urement (mass/volume)Ordered By: Gilson Castro on 05-16-2022 Glucose [Mass/Vol] 90 mg/dL 70-100 [facility] Comment on above: ADA recommended refe rence range Random Glucose Reference Range is dependent on time and content of last meal. Glucose of more than 200 mg/dL in a nonstressed, ambulatory subject supports the diagnosis of Diabetes Mellitus. Serum or plasma potassium me asurement (moles/volume)Ordered By: Gilson Castro on 05-16-2022 Potassium [Moles/Vol] 3.2 mmol/L 3.5-5.1 [facility] Serum or plasma sodium measu rement (moles/volume)Ordered By: Gilson Castro on 05-16-2022 Sodium [Moles/Vol] 135 mmol/L 136-146 [facility] Serum or plasma total biliru bin measurement (mass/volume)Ordered By: Gilson Castro on 05-16-2022 Bilirubin [Mass/Vol] 1.0 mg/dL 0.3-1.2 [facility] Serum or plasma total carbon dioxide measurement (moles/volume)Ordered By: Gilson Castro on 05-16-2022 CO2 [Moles/Vol] 24.6 mmol/L 22.0-30.0 [facility] Serum or plasma urea nitroge n measurement (mass/volume)Ordered By: Gilson Castro on 05-16-2022 Urea nitrogen [Mass/Vol] 23 mg/dL 9-23 [facility] Specific gravity Auto test s trip (U) [Rel density]Ordered By: Gilson Castro on 05-16-2022 Specific gravity (U) [Rel density] 1.023 1.001-1.03 0 [facility] Squamous epithelial cells de tection in urine sediment by light microscopyOrdered By: Gilson Castro on 05-16-2022 Epithelial cells.squamous LM Ql (Urine sed) 20-30 [HPF] 0-2 [facility] Urine bacteria detection by automated methodOrdered By: Gilson Castro on 05-16-2022 Bacteria Auto Ql (U) 1+ None Seen [facility] Urine clarity by refractomet ry automatedOrdered By: Gilson Castro on 05-16-2022 Clarity Refractometry automated (U) Turbid Clear [facility] Urine cocaine detectionOrder ed By: Gilson Castro on 05-16-2022 Cocaine Ql (U) Negative Negative [facility] Urine glucose measurement by automated test strip (mass/volume)Ordered By: Gilson Castro on 05-16-2022 Glucose Auto test strip (U) [Mass/Vol] Normal mg/dL Normal [facility] Urine hemoglobin detection b y automated test stripOrdered By: Gilson Castro on 05-16-2022 Hemoglobin Auto test strip Ql (U) Negative Negative [facility] Urine leukocyte esterase det ection by automated test stripOrdered By: Gilson Castro on 05-16-2022 Leukocyte esterase Auto test strip Ql (U) 2+ Negative [facility] Urobilinogen Auto test strip (U) [Mass/Vol]Ordered By: Gilson Castro on 05-16-2022 Urobilinogen (U) [Mass/Vol] Normal mg/dL Normal [facility] pH Auto test strip (U)Ordere d By: Gilson Castro on 05-16-2022 pH (U) 8.0 [pH] 5.0-9.0 [facility] Albumin [Mass/volume] in Ser um or PlasmaOrdered By: Art Bianchi on 05-15-2022 Albumin [Mass/Vol] 4.7 g/dL 3.2-5.5 [facility] Basophils Auto (Bld) [#/Vol] Ordered By: Art Bianchi on 05-15-2022 Basophils (Bld) [#/Vol] 0.0 10*3/uL 0.0-0.1 [facility] Basophils/100 WBC Auto (Bld) Ordered By: Art Bianchi on 05-15-2022 Basophils/100 WBC (Bld) 0.2 % . [facility] Blood hemoglobin measurement (mass/volume)Ordered By: Art Bianchi on 05-15-2022 Hemoglobin (Bld) [Mass/Vol] 13.6 g/dL 12.0-16.0 [facility] Blood leukocytes automated c ount (number/volume)Ordered By: Art Bianchi on 05-15-2022 WBC (Bld) [#/Vol] 14.0 10*3/uL 4.5-13.5 [facility] Creatinine and Glomerular fi ltration rate.predicted panel (S/P/Bld)Ordered By: Art Bianchi on 05-15-2022 Creatinine [Mass/Vol] 0.76 mg/dL 0.44-1.03 [facility] Eosinophils Auto (Bld) [#/Vo l]Ordered By: Art Bianchi on 05-15-2022 Eosinophils (Bld) [#/Vol] 0.0 10*3/uL 0.0-0.7 [facility] Eosinophils/100 WBC Auto (Bl d)Ordered By: Art Bianchi on 05-15-2022 Eosinophils/100 WBC (Bld) 0.4 % . [facility] Erythrocyte distribution wid th Auto (RBC) [Ratio]Ordered By: Art Bianchi on 05-15-2022 Erythrocyte distribution width (RBC) [Ratio] 13.7 % 11.9-15.3 [facility] Estimated glomerular filtrat ion rate (GFR) non- AmericanOrdered By: Art Bianchi on 05-15-2022 GFR/1.73 sq M.predicted among non-blacks MDRD (S/P/Bld) [Vol rate/Area] > 60 mL/Min [facility] Globulin Calc (S) [Mass/Vol] Ordered By: Art Bianchi on 05-15-2022 Globulin (S) [Mass/Vol] 3.2 g/dL [facility] Hematocrit Auto (Bld) [Volum e fraction]Ordered By: Art Bianchi on 05-15-2022 Hematocrit (Bld) [Volume fraction] 41.0 % 36.0-46.0 [facility] Laboratory - Chemistry and C hemistry - challengeOrdered By: Art Bianchi on 05-15-2022 Lipase [Catalytic activity/Vol] 24.0 U/L 22-51 [facility] Laboratory - Hematology and Cell countsOrdered By: Art Bianchi on 05-15-2022 Nucleated RBC/100 WBC (Bld) [Ratio] 0.0 % 0-0.5 [facility] Lymphocytes Auto (Bld) [#/Vo l]Ordered By: Art Bianchi on 05-15-2022 Lymphocytes (Bld) [#/Vol] 2.6 10*3/uL 1.20-4.8 [facility] Lymphocytes/100 WBC Auto (Bl d)Ordered By: Art Bianchi on 05-15-2022 Lymphocytes/100 WBC (Bld) 18.4 % . [facility] MCH Auto (RBC) [Entitic mass ]Ordered By: Art Bianchi on 05-15-2022 MCH (RBC) [Entitic mass] 28.0 pg 25.0-35.0 [facility] MCHC Auto (RBC) [Mass/Vol]Or dered By: Art Bianchi on 05-15-2022 MCHC (RBC) [Mass/Vol] 33.3 g/dL 31.0-37.0 [facility] MCV Auto (RBC) [Entitic vol] Ordered By: Art Bianchi on 05-15-2022 MCV (RBC) [Entitic vol] 84.1 fL 78-102 [facility] Monocytes Auto (Bld) [#/Vol] Ordered By: Art Bianchi on 05-15-2022 Monocytes (Bld) [#/Vol] 1.2 10*3/uL 0.1-1.00 [facility] Monocytes/100 WBC Auto (Bld) Ordered By: Art Bianchi on 05-15-2022 Monocytes/100 WBC (Bld) 8.3 % . [facility] Neutrophils Auto (Bld) [#/Vo l]Ordered By: Art Bianchi on 05-15-2022 Neutrophils (Bld) [#/Vol] 10.2 10*3/uL 1.2-7.7 [facility] Neutrophils/100 WBC Auto (Bl d)Ordered By: Art Bianchi on 05-15-2022 Neutrophils/100 WBC (Bld) 72.7 % . [facility] No Panel InformationOrdered By: Art Bianchi on 05-15-2022 Estimated GFR () > 60 mL/Min [facility] Comment on above: GFR estimated refere nce range: According to KDOQI guidelines, <60 ml/min/1.73m2 is sufficient to diagnose a patient with chronic kidney disease. Pharmacy Creatinine Clearance (Chem 115.34 [facility] Platelet mean volume Auto (B ld) [Entitic vol]Ordered By: Art Bianchi on 05-15-2022 Platelet mean volume (Bld) [Entitic vol] 8.8 fL 6.3-10.7 [facility] Platelets Auto (Bld) [#/Vol] Ordered By: Art Bianchi on 05-15-2022 Platelets (Bld) [#/Vol] 315 10*3/uL 150-450 [facility] Protein [Mass/volume] in Ser um or PlasmaOrdered By: Art Bianchi on 05-15-2022 Protein [Mass/Vol] 7.9 g/dL 6.1-7.9 [facility] RBC Auto (Bld) [#/Vol]Ordere d By: Art Bianchi on 05-15-2022 RBC (Bld) [#/Vol] 4.88 10*6/uL 4.10-5.10 [facility] Serum or plasma alanine florez otransferase measurement without P-5'-P (enzymatic activiOrdered By: Art Bianchi on 05-15-2022 ALT No additional P-5'-P [Catalytic activity/Vol] 25 U/L 10-60 [facility] Serum or plasma albumin/glob ulin mass ratioOrdered By: Art Bianchi on 05-15-2022 Albumin/Globulin [Mass ratio] 1.5 {ratio} [facility] Serum or plasma alkaline justin sphatase measurement (enzymatic activity/volume)Ordered By: Art Bianchi on 05-15-2022 ALP [Catalytic activity/Vol] 66 U/L 32-92 [facility] Serum or plasma aspartate am inotransferase measurement (enzymatic activity/volume)Ordered By: Art Bianchi on 05-15-2022 AST [Catalytic activity/Vol] 33 U/L 10-42 [facility] Serum or plasma calcium tammy urement (mass/volume)Ordered By: Art Bianchi on 05-15-2022 Calcium [Mass/Vol] 10.1 mg/dL 8.2-10.2 [facility] Serum or plasma chloride judy surement (moles/volume)Ordered By: Art Bianchi on 05-15-2022 Chloride [Moles/Vol] 94 mmol/L 95-114 [facility] Serum or plasma glucose tammy urement (mass/volume)Ordered By: Art Bianchi on 05-15-2022 Glucose [Mass/Vol] 102 mg/dL 70-100 [facility] Comment on above: ADA recommended refe rence range Random Glucose Reference Range is dependent on time and content of last meal. Glucose of more than 200 mg/dL in a nonstressed, ambulatory subject supports the diagnosis of Diabetes Mellitus. Serum or plasma potassium me asurement (moles/volume)Ordered By: Art Bianchi on 05-15-2022 Potassium [Moles/Vol] 3.1 mmol/L 3.5-5.1 [facility] Serum or plasma sodium measu rement (moles/volume)Ordered By: Art Bianchi on 05-15-2022 Sodium [Moles/Vol] 135 mmol/L 136-146 [facility] Serum or plasma total biliru bin measurement (mass/volume)Ordered By: Art Bianchi on 05-15-2022 Bilirubin [Mass/Vol] 1.2 mg/dL 0.3-1.2 [facility] Serum or plasma total carbon dioxide measurement (moles/volume)Ordered By: Art Bianchi on 05-15-2022 CO2 [Moles/Vol] 22.2 mmol/L 22.0-30.0 [facility] Serum or plasma urea nitroge n measurement (mass/volume)Ordered By: Art Bianchi on 05-15-2022 Urea nitrogen [Mass/Vol] 23 mg/dL 9-23 [facility] Albumin [Mass/volume] in Ser um or PlasmaOrdered By: Art Bianchi on 05-13-2022 Albumin [Mass/Vol] 4.3 g/dL 3.2-5.5 [facility] Automated erythrocytes count in urine sediment (number/area)Ordered By: Art Bianchi on 05-13-2022 RBC Auto (Urine sed) [#/Area] 1-2 [HPF] 0-4 [facility] Automated leukocytes count i n urine sediment (number/area)Ordered By: Art Bianchi on 05-13-2022 WBC Auto (Urine sed) [#/Area] 1-2 [HPF] 0-4 [facility] Basophils Auto (Bld) [#/Vol] Ordered By: Art Bianchi on 05-13-2022 Basophils (Bld) [#/Vol] 0.1 10*3/uL 0.0-0.1 [facility] Basophils/100 WBC Auto (Bld) Ordered By: Art Bianchi on 05-13-2022 Basophils/100 WBC (Bld) 1.0 % . [facility] Bilirubin Test strip Ql (U)O rdered By: Art Bianchi on 05-13-2022 Bilirubin Ql (U) Negative Negative [facility] Blood hemoglobin measurement (mass/volume)Ordered By: Art Bianchi on 05-13-2022 Hemoglobin (Bld) [Mass/Vol] 13.7 g/dL 12.0-16.0 [facility] Blood leukocytes automated c ount (number/volume)Ordered By: Art Bianchi on 05-13-2022 WBC (Bld) [#/Vol] 10.4 10*3/uL 4.5-13.5 [facility] Color Auto (U)Ordered By: Adrian Bianchi on 05-13-2022 Color (U) Yellow Yellow [facility] Creatinine and Glomerular fi ltration rate.predicted panel (S/P/Bld)Ordered By: Art Bianchi on 05-13-2022 Creatinine [Mass/Vol] 0.76 mg/dL 0.44-1.03 [facility] Eosinophils Auto (Bld) [#/Vo l]Ordered By: Art Bianchi on 05-13-2022 Eosinophils (Bld) [#/Vol] 0.5 10*3/uL 0.0-0.7 [facility] Eosinophils/100 WBC Auto (Bl d)Ordered By: Art Bianchi on 05-13-2022 Eosinophils/100 WBC (Bld) 4.6 % . [facility] Erythrocyte distribution wid th Auto (RBC) [Ratio]Ordered By: Art Bianchi on 05-13-2022 Erythrocyte distribution width (RBC) [Ratio] 13.6 % 11.9-15.3 [facility] Estimated glomerular filtrat ion rate (GFR) non- AmericanOrdered By: Art Binachi on 05-13-2022 GFR/1.73 sq M.predicted among non-blacks MDRD (S/P/Bld) [Vol rate/Area] > 60 mL/Min [facility] Globulin Calc (S) [Mass/Vol] Ordered By: Art Bianchi on 05-13-2022 Globulin (S) [Mass/Vol] 2.7 g/dL [facility] HCG ( test) IA.rapi d Ql (U)Ordered By: Art Bianchi on 05-13-2022 HCG ( test) Ql (U) Negative [facility] Hematocrit Auto (Bld) [Volum e fraction]Ordered By: Art Bianchi on 05-13-2022 Hematocrit (Bld) [Volume fraction] 40.5 % 36.0-46.0 [facility] Ketones Auto test strip (U) [Mass/Vol]Ordered By: Art Bianchi on 05-13-2022 Ketones (U) [Mass/Vol] Trace Negative [facility] - Hematology and Cell countsOrdered By: Art Bianchi on 05-13-2022 Nucleated RBC/100 WBC (Bld) [Ratio] 0.0 % 0-0.5 [facility] Laboratory - UrinalysisOrder ed By: Art Bianchi on 05-13-2022 Hyaline casts LM Ql (Urine sed) 0-8 [LPF] 0-8 [facility] Lymphocytes Auto (Bld) [#/Vo l]Ordered By: Art Bianchi on 05-13-2022 Lymphocytes (Bld) [#/Vol] 1.4 10*3/uL 1.20-4.8 [facility] Lymphocytes/100 WBC Auto (Bl d)Ordered By: Art Bianchi on 05-13-2022 Lymphocytes/100 WBC (Bld) 13.1 % . [facility] MCH Auto (RBC) [Entitic mass ]Ordered By: Art Bianchi on 05-13-2022 MCH (RBC) [Entitic mass] 28.6 pg 25.0-35.0 [facility] MCHC Auto (RBC) [Mass/Vol]Or dered By: Art Bianchi on 05-13-2022 MCHC (RBC) [Mass/Vol] 33.7 g/dL 31.0-37.0 [facility] MCV Auto (RBC) [Entitic vol] Ordered By: Art Bianchi on 05-13-2022 MCV (RBC) [Entitic vol] 84.7 fL 78-102 [facility] Monocytes Auto (Bld) [#/Vol] Ordered By: Art Bianchi on 05-13-2022 Monocytes (Bld) [#/Vol] 0.4 10*3/uL 0.1-1.00 [facility] Monocytes/100 WBC Auto (Bld) Ordered By: Art Bianchi on 05-13-2022 Monocytes/100 WBC (Bld) 4.2 % . [facility] Neutrophils Auto (Bld) [#/Vo l]Ordered By: Art Bianchi on 05-13-2022 Neutrophils (Bld) [#/Vol] 8.0 10*3/uL 1.2-7.7 [facility] Neutrophils/100 WBC Auto (Bl d)Ordered By: Art Bianchi on 05-13-2022 Neutrophils/100 WBC (Bld) 77.1 % . [facility] Nitrite Test strip Ql (U)Ord ered By: Art Bianchi on 05-13-2022 Nitrite Ql (U) Negative Negative [facility] No Panel InformationOrdered By: Art Bianchi on 05-13-2022 Estimated GFR () > 60 mL/Min [facility] Comment on above: GFR estimated refere nce range: According to KDOQI guidelines, <60 ml/min/1.73m2 is sufficient to diagnose a patient with chronic kidney disease. Pharmacy Creatinine Clearance (Chem 112.80 [facility] Platelet mean volume Auto (B ld) [Entitic vol]Ordered By: Art Bianchi on 05-13-2022 Platelet mean volume (Bld) [Entitic vol] 8.6 fL 6.3-10.7 [facility] Platelets Auto (Bld) [#/Vol] Ordered By: Art Bianchi on 05-13-2022 Platelets (Bld) [#/Vol] 264 10*3/uL 150-450 [facility] Protein Auto test strip (U) [Mass/Vol]Ordered By: Art Bianchi on 05-13-2022 Protein (U) [Mass/Vol] 30 mg/dL Negative [facility] Protein [Mass/volume] in Ser um or PlasmaOrdered By: Art Bianchi on 05-13-2022 Protein [Mass/Vol] 7.0 g/dL 6.1-7.9 [facility] RBC Auto (Bld) [#/Vol]Ordere d By: Art Bianchi on 06-16-2022 RBC (Bld) [#/Vol] 4.78 10*6/uL 4.10-5.10 [facility] Serum or plasma alanine florez otransferase measurement without P-5'-P (enzymatic activiOrdered By: Art Bianchi on 05-13-2022 ALT No additional P-5'-P [Catalytic activity/Vol] 19 U/L 10-60 [facility] Serum or plasma albumin/glob ulin mass ratioOrdered By: Art Bianchi on 05-13-2022 Albumin/Globulin [Mass ratio] 1.6 {ratio} [facility] Serum or plasma alkaline justin sphatase measurement (enzymatic activity/volume)Ordered By: Art Bianchi on 05-13-2022 ALP [Catalytic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 availableyes? Other Learner is Able to be Assessed for Learningyes? Learnerfather, mother? Factors Influencing Readiness to Learnnone, ready to learn? Factors that Impact Ability to Learnnone? Devices/Methods Used to Communicatenone? Learning Preferencesaudio, computer/internet, group instruction, individualinstruction, skill demonstration, verbal instruction, video, written material? Cultural Considerationsnone? Developmental Considerationsnone? Anabaptism Considerationsnone Nutrition Risk Screen:? Nutrition Screen forpediatric [...] Spiritual Screen:? Are there any cultural, spiritual, congregation practices/values/needs that areimportant for us to know?no [...] 23-Jun-2018 02:50 by Lubna Lockett (RN) Normal [facility] Clinical Event Note-Consent for psych evalon 06-23-2018 Clinical Event Note-Consent for psych eval Event:Topic: Consent for psych evalDetails:Father (Carlos Parikh) and Mother ([phone]) give consent [phone] Provider / Team Contact Information:Provider/Team Contact Info-Pager Number: [phone] Electronic Signatures:Ayaan Burnham (Resident)) (Signed 23-Jun-2018 03:20)Authored: Event, Provider / Team Contact Information Last Updated: 23-Jun-2018 03:20 by Ayaan Burnham ( (Resident)) Normal [facility] Clinical Event Note-Medical Clearanceon 06-23-2018 Clinical Event Note-Medical Clearance Event:Topic: Medical ClearanceDetails:Medically cleared for [facility] transfer, pending bed availability. CAMILA CorreaGY-1 PediatricsPager [phone] Provider / Team Contact Information:Provider/Team Contact Info-Pager Number: [phone] Electronic Signatures:Nelsy Rowland (Resident)) (Signed 23-Jun-2018 13:10)Authored: Event, Provider / Team Contact Information Last Updated: 23-Jun-2018 13:10 by Nelsy Rowland (Resident)) Normal [facility] Clinical Event Note-transfer to [facility] CAPUon 06-23-2018 [...] / Team Contact Information:Provider/Team Contact Info-Pager Number: [phone] pager Electronic Signatures:Flor Al (Fellow)) (Signed 23-Jun-2018 18:33)Authored: Event, Provider / Team Contact Information Last Updated: 23-Jun-2018 18:33 by Flor Al ( (Fellow)) Normal [facility] Consult - Child Psychiatryon 06-23-2018 Consult - [...] wasn't feeling well [facility] with[facility] and [facility], was admitted to [...] PSYCHIATRIC HISTORY:Current psychiatrist: NoneCurrent therapist: Maureen (through [employer])Other providers/agencies: [employer] Instructor is Griffin ([phone]) [facility]; attends group therapy every (patient states therapy wasstarted because she was in the hospital for so long due to her POTS)Outpatient treatment history: No current 1[facility]1 [facility], [facility]: NoneHistory of suicide ideation/attempts: NoneCurrent [...] school due to hospitalizations for POTS/medical issuesReports [facility] recent case that was [...] checked: no Objective Information: Objective Information: T [id number]/569 9%Date/Time06/23 8: 8: 8: 8: 8:33Range(36.5C - [...] inhalation InhalationEvery 4 Hours3. Lidocaine 4% Top [facility] -Tegaderm Dressing KIT - PEDS: 1 [...] patient to leave even AMA(4) Please call [phone] with any questions Electronic Signatures:Laura Galvez) (Signed 23-Jun-2018 13:03)Authored: Consult Referral Information, History of Presenting Illness,Allergies, Medications Prior to Admission, Objective Information,Assessment/Ramon mmendations, Signature/Cosignature/Attes tation Last Updated: 23-Jun-2018 13:03 by Laura Galvez) Normal [facility] Discharge Planning Noteon Discharge Planning Note Discharge Needs Assessment:? Discharge Planning Assessment [id number]? Discharge Planning Assessment Completed byTricia Cathryn, permit technician Information:? Reason for Admission as Stated by [...] Care NeedsHome Discharge Planning:Discharge Plannin06/23/2018 @ 0100 field auto appraiser Note: Patient admitted to [facility] from [facility]. Patient admitted for ingestion of atenolol, SI. Patient and familyoriented to the unit, staff, and floor routine. Patient and family do not haveany more questions or needs at this time. - Lubna Lockett RN Final Disposition/Discharge:Dispo sition/Discharge Information: Discharge/Transfer Information:? Discharge/Transfer Date/Hfcc34-Kei-2120 14:50? Discharged Accompanied Byparent? Discharge Modeambulatory? Transportation [...] Risk Screen - Pediatric 06/23/2018 02:40AM Normal [facility] History and Physical - Pedso n 06-23-2018 History and Physical - Peds History of Present Illness:/Lactating: ? Are You no (1)? Are You Currently Breastfeedingno (1) History of Present Illness:Admission Reason: awaiting psych placementHPI:2 days ASSISTED LIVING COORDINATOR around 6:40 in the evening, Pili felt [...] given, Atenolol held.Medically cleared and transferred to [facility]. Upon arrival denies any pain, asidesfrom [...] and are negative Objective: Objective Information: T DJXJRyH1Icsfi36.94594090/78 97%Date/Time06/23 0: 0: 0:5006/23 0:5006/23 0:50Range(36.7C - [...] OSH and transferred toR for psych placement. [facility]# suicidal ideation - beta adán overdose- psych eval- awating for bed- parents do not want psych meds- 1:1 sitter- f/u with poison control. CV- baseline HR 50-60s- EKG at OSH- sinus bradycardia with sinus arrhythmia- atenolol held- repeat EKG POTS- continue home meds Ayaan Burnham, CAMILAGY-1 PediatricsPager [phone] Signatures/Attestation/Cert ification:Attending AttestationI saw and evaluated the [...] patient (as noted in the above attestation) [id number] Provider ? Inpatient Certification StatementI certify this [...] - Pediatric v2 06/23/2018 02:37 AM Normal [facility] Letter - Admission Notificat ion to PCPon 06-23-2018 Letter - Admission Notification to PCP Letter of Admission:Today's Date: 23-Jun-2018. Dear Melida Daniel MD. We would like to inform you that your patient was admitted to [facility] on the following date: 23-Jun-2018. The patient [...] Radha Unger MD. Attending Physician Phone Number: [phone]. Electronic Signatures:Jae Mensah (DIV SECT) (Signed 23-Jun-2018 08:29)Authored: Admission Letter Last Updated: 23-Jun-2018 08:29 by Jae Mensah (DIV SECT) Normal [facility] Measurementson 06-23-2018 Measurements Weight: ? Med Calc Weight (kg)90.5 kilogram(s) Electronic Signatures: Ayaan Burnham ( (Resident)) (Signed 23-Jun-2018 01:57) Authored: Weight Last Updated: 23-Jun-2018 01:57 by Ayaan Burnham ( (Resident)) Normal [facility] Patient Profile - Pediatric v2on 06-23-2018 Protein mass conc Profile:Initial Info :How to be AddressedTrinityParent NameRobert Jl (father)Spoken Language PreferredEnglishLegal CustodianParents (Carlos & )Are you currently using the Personal Electronic Health Record or eMazeMeUHCAREnoAre you interested in learning more about [facility] for the management of yourhealthnot at this [...] Updated: 23-Jun-2018 02:40 by Lubna Lockett) Normal [facility] Visitor Enrico 06-23-2018 Visitor List Visitor List: Carlos Parikh (father). Cy Parikh (mother). Electronic Signatures: Lubna Lockett) (Signed 23-Jun-2018 04:37) Authored: Visitor List Last Updated: 23-Jun-2018 04:37 by Lubna Lockett) Normal [facility] Office Visit (Pediatric Neur ology)on 06-05-2018 Office [...] her tear ducts. She had seen an ship steward who confirmed this. 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 She will be going to [employer] school in the fall. She can still [...] pain; KAYLA = N; Verified Transmission to [place] [address]; Last Updated By: [employer]; 09/28/2017 12:12:51 PM Afrin 12 Hour 0.05 % Nasal Solution; USE 1 SPRAY IN EACH NOSTRIL TWICE DAILY;Therapy: 22Dec2017 to (Evaluate:25Dec2017) Requested for: 22Dec2017; LastRx:22Dec2017 Ordered Rx By: Dali Mcintosh; Dispense: 3 Days ; #: Sufficient X 15 ML Bottle; Refill: 0;For: Abdominal pain, Asthma, mild persistent, Epistaxis, Flu-like symptoms, Hematemesis, Vomiting; KAYLA = N; [place] [address]; Last Updated By: [employer]; 12/22/2017 5:43:51 PM AeroChamber Z-Stat Plus/Large Miscellaneous; Please dispense large spacer withmouthpiece. Okay to substitute Optichamber with mouthpiece or Ashley Vortex withmouthpiece;Therapy: 23Sep2014 to (Last Rx:24Mar2015) Requested for: 24Mar2015 Ordered Rx By: Amira Roach; Dispense: 0 Days ; #:1 Miscellaneous; Refill: 1;For: Asthma; KAYLA = N; [place] [address]; Last Updated By: [employer]; 03/24/2015 10:46:52 AM Albuterol Sulfate (2.5 MG/3ML) 0.083% Inhalation Nebulization Solution; Inhale one vialevery 4-6 hours as needed for cough, wheezing and shortness of breath;Therapy: 23Sep2014 to (Evaluate:20Oct2015) Requested for: 24Mar2015; LastRx:24Mar2015 Ordered Rx By: Amira Roach; Dispense: 30 Days ; #:1 X 3 ML Plas Cont (60 Plas Conts); Refill: 6;For: Asthma; KAYLA = N; Verified Transmission to [facility]; Last Updated By: [employer]; 03/24/2015 10:46:51 AM PredniSONE 20 MG Oral Tablet; Take 3 tablets once daily for 5-7 days. To be used in thesetting of a severe asthma flare-up. Please call the office prior to starting;Therapy: 23Sep2014 to (Last Rx:[id number]) Requested for: 83Nep1980 Ordered Rx By: Amira Roach; Dispense: 0 Days ; #:21 Tablet; Refill: 1;For: Asthma; KAYLA = N; Sent To: [facility]; Last Updated By: Dali Mcintosh; 04/14/2018 10:03:48 AM ProAir HFA 108 (90 Base) MCG/ACT Inhalation Aerosol Solution; Inhale 2-4 puffs every4-6 hours as needed for cough, wheezing or shortness of breath and prior to exercise;Therapy: 23Sep2014 to (Last Rx:46Dyw2730) Requested for: 24Mar2015 Ordered Rx By: Amira Roach; Dispense: 0 Days ; #:2 X 8.5 GM Inhaler; Refill: 6;For: Asthma; KAYLA = N; Verified Transmission to [facility]; Last Updated By: [employer]; 03/24/2015 10:46:52 AM Qvar 80 MCG/ACT Inhalation Aerosol Solution; INHALE TWO PUFFS BY MOUTH TWICEA DAY WITH A SPACER;Therapy: 23Sep2014 to (Last Rx:03Gdj6552) Requested for: 19Pnf4817 Ordered Rx By: Amira Roach; Dispense: 0 Days ; #:8.7 EA; Refill: 5;For: Asthma, mild persistent; KAYLA = N; Verified Transmission to [place] Lansoprazole 30 MG Oral Capsule Delayed Release; TAKE 1 CAPSULE EVERYMORNING DAILY;Therapy: 06Umd8607 to (Evaluate:35Byd0300) Requested for: 68Lpy3660; LastRx:36Wcj6933 Ordered Rx By: Dali Mcintosh; Dispense: 30 Days ; #:30 Capsule Delayed Release; Refill: 3;For: Gastro-esophageal reflux; KAYLA = N; Verified Transmission to [place] [address] Unspecified Medication; Vitamin B2-400 Oral Capsule1 capsule orally once a day;Therapy: (Recorded:56Ovl1277) to Recorded Dispense: 0 Days ; #: Sufficient; Refill: 0;For: Health Maintenance; KAYLA = N; Record; Last Updated By: Mehran Martinez; 08/26/2017 8:43:21 AM Gabapentin 300 MG Oral Capsule; TAKE 1 CAPSULE 3 TIMES DAILY;Therapy: 28Sep2017 to (Evaluate:17Aug2018) Requested for: 18Feb2018; LastRx:18Feb2018 Ordered Rx By: Mere Simpson; Dispense: 30 Days ; #:90 Capsule; Refill: 5;For: Migraine; KAYLA = N; Verified Transmission to [place] [address]; Last Updated By: Loretta [employer]; 02/18/2018 9:49:39 AM Magnesium Oxide 400 MG Oral Tablet; 1 TABLET ORALLY ONCE A DAY;Therapy: (Recorded:13Udr9101) to Recorded Dispense: 0 Days ; #: Sufficient Tablet; Refill: 0;For: Migraine; KAYLA = N; Record; Last Updated By: Mehran Martinez; 08/26/2017 8:43:21 AM Amitriptyline HCl - 25 MG Oral Tablet; TAKE 1 TABLET AT BEDTIME;Therapy: 58Ahg6611 to (Evaluate:35Vfe1582) Requested for: 68Ajf0942; LastRx:22Xaq1715 Ordered Rx By: Dali Mcintosh; Dispense: 30 Days ; #:30 Tablet; Refill: 6;For: Migraine, Vomiting; KAYLA = N; Verified Transmission to [place] [address] Vitamin D 1000 UNIT Oral Tablet; TAKE 1 TABLET DAILY;Therapy: 70Qek4364 to (Evaluate:09Xpa4826) Requested for: 87Nhp0095; LastRx:96Rxv7410 Ordered Rx By: aDli Mcintosh; Dispense: 30 Days ; #:30 Tablet; Refill: 3;For: Vitamin D deficiency; KAYLA = N; Verified Transmission to [place] [address] Cyproheptadine HCl - 4 MG Oral Tablet; TAKE 1 TABLET EVERY 8 HOURS DAILY Requested for: 02Sep2017; Last Rx:02Sep2017 Ordered Rx By: Jessica Coello; Dispense: 30 Days ; #:90 Tablet; Refill: 3;For: Vomiting; KAYLA = N; Rx auto-faxed to [place] [address]; Last Updated By: [employer]; 09/02/2017 3:51:52 PM Ondansetron HCl - 8 MG Oral Tablet; TAKE 1 TABLET 3 times daily PRN vomiting;Therapy: 16Dec2017 to (Evaluate:29Xvb7099) Requested for: 18Apr2018; LastRx:18Apr2018 Ordered Rx By: Dali Mcintosh; Dispense: 30 Days ; #:90 Tablet; Refill: 3;For: Vomiting; KAYLA = N; Verified Transmission to [place] [address] Phenergan 25 MG SUPP; INSERT 1 SUPPOSITORY RECTALLY EVERY 12 HOURS ASNEEDED FOR NAUSEA AND VOMITING;Therapy: 03Nov2015 to (Last Rx:16Dec2017) Requested for: 16Dec2017 Ordered Rx By: Dali Mcintosh; Dispense: 0 Days ; #:12 Suppository; Refill: 1;For: Vomiting; KAYLA = N; Rx auto-faxed to [place] [address]; Last Updated By: Loretta [employer]; 12/16/2017 1:32:36 PM Promethazine HCl - 25 MG Oral Tablet; 1 tablet orally every 12 hours as needed fornausea/vomiting Requested for: 16Dec2017; Last Rx:16Dec2017 Ordered Rx By: Dali Mcintosh; Dispense: 0 Days ; #:60 Tablet; Refill: 0;For: Vomiting; KAYLA = N; Rx auto-faxed to [place] [address]; Last Updated By: [employer]; 12/16/2017 1:32:35 PM Atenolol 25 MG Oral [...] 04/14/2018 10:03:53 AM Vitals Vital Signs Recorded: 68Kjc3689 10:75IZBwhfbwbz962Duxnxdzih 91Dgdyrb1 ft 2.40 sqBrikal223 lb 14.53 ozBMI Golzlzrxds11.18BSA Calculated1.94BMI Adjyyhsgvo25 %2-20 Stature Bbzfhowpim13 %2-20 Weight Kpmyqzcpbq89 % Physical ExamToday's exam finds a cooperative [...] Treat Status:Hold For - Scheduling Requested for: 23Obf8300 Ordered;For: Snoring; Ordered By: Mere Simpson Performed: [...] TAKE 1 TABLET AT BEDTIME;Therapy: 14Apr2018 to (Evaluate:87Wcy0006) Requested for: 18Apr2018; LastRx:18Apr2018 OrderedAtenolol 25 MG Oral Tablet; TAKE 1 TABLET DAILY;Therapy: (Recorded:57Ias6776) to RecordedCyproheptadine HCl - 4 MG Oral Tablet; TAKE 1 TABLET EVERY 8 HOURS DAILY Requested for: 02Sep2017; Last Rx:64Hgm0389 OrderedFludrocortisone Acetate 0.1 MG Oral Tablet; take one tablet twice a day;Therapy: (Recorded:07Wlv1285) to RecordedGabapentin 300 MG Oral Capsule; TAKE 1 CAPSULE 3 TIMES DAILY;Therapy: 28Sep2017 to (Evaluate:84Gcr8337) Requested for: 18Feb2018; LastRx:18Feb2018 OrderedHyoscyamine Sulfate 0.125 MG Oral Tablet Disintegrating; 2 tablets orally every 8 hours Requested for: 28Sep2017; Last Rx:28Sep2017 OrderedLansoprazole 30 MG Oral Capsule Delayed Release; TAKE 1 CAPSULE EVERYMORNING DAILY;Therapy: 14Apr2018 to (Evaluate:57Ekc9511) Requested for: 18Apr2018; LastRx:18Apr2018 OrderedMagnesium Oxide 400 MG Oral Tablet; 1 TABLET ORALLY ONCE A DAY;Therapy: (Recorded:96Zmy7845) to RecordedOndansetron HCl - 8 MG Oral Tablet; TAKE 1 TABLET 3 times daily PRN vomiting;Therapy: 16Dec2017 to (Evaluate:71Cnh3320) Requested for: 96Bgf8169; LastRx:18Apr2018 OrderedPhenergan 25 MG SUPP; INSERT 1 SUPPOSITORY RECTALLY EVERY 12 HOURS ASNEEDED FOR NAUSEA AND VOMITING;Therapy: 55Qxn2376 to (Last Rx:16Dec2017) Requested for: 16Dec2017 OrderedPredniSONE 20 MG Oral Tablet; Take 3 tablets once daily for 5-7 days. To be used in thesetting of a severe asthma flare-up. Please call the office prior to starting;Therapy: 23Sep2014 to (Last Rx:16Rxb6116) Requested for: 59Cbn2505 OrderedProAir HFA 108 (90 Base) MCG/ACT Inhalation Aerosol Solution; Inhale 2-4 puffs every4-6 hours as needed for cough, wheezing or shortness of breath and prior to exercise;Therapy: 23Sep2014 to (Last Rx:62Srw8663) Requested for: 24Mar2015 OrderedPromethazine HCl - 25 MG Oral Tablet; 1 tablet orally every 12 hours as needed fornausea/vomiting Requested for: 16Dec2017; Last Rx:16Dec2017 OrderedQvar 80 MCG/ACT Inhalation Aerosol Solution; INHALE TWO PUFFS BY MOUTH TWICEA DAY WITH A SPACER;Therapy: 23Sep2014 to (Last Rx:10Izi0169) Requested for: 93Zrl8737 OrderedTri-Sprintec 0.18/0.215/0.25 MG-35 MCG Oral Tablet;Therapy: 23Mar2018 to RecordedUnspecified Medication; Vitamin B2-400 Oral Capsule1 capsule orally once a day;Therapy: (Recorded:19Mme8649) to RecordedVitamin D 1000 UNIT Oral Tablet; TAKE 1 TABLET DAILY;Therapy: 18Omm2914 to (Evaluate:66Bmc1658) Requested for: 63Tlu5895; LastRx:73Ksc9012 Ordered Signatures Electronically signed by : KAREEM DuránAURORA SINAI MEDICAL CENTER– MILWAUKEERadha; Jun 05 2018 10:46AM EST (Author) Normal [facility] Discharge Summaryon 08-24-20 Discharge Summary Send Summary:Dischar ge Summary Providers:Provider Role Provider Name? Referring Dali Mcintosh? Attending Adeola Colon? Primary Zac Daniel Recipients: Adeola Colon MD Baez-Socorro, Virginia M, MD Bumagina, Natalie, MD - [phone] [[id number]]Dali Mcintosh MD - [id number] [Preferred]Discharge:Summar y:Admission Date: .09-Aug-2017 21:44:00Discharge Date: 88-Uvm-1866Iqzpkukvg Physician at Discharge: Adeola Colon NAdmission Reason: vomiting, hematemesisFinal Discharge Diagnoses: Functional abdominal painProcedures: null Aug 11, 2017Condition at Discharge: SatisfactoryDisposition at Discharge: .HomeVital Signs: T P R BP JbM0Rngma 36.6 70 18 126/84 98%Date/Time 08/24 8:58 [...] months, but worse recently. She was admitted [facility] last month for the vomiting. [...] Saturday September 02, 2017 at3:30 pm. Location: [place] [address] Umevve-Up Appointment 02: Physician/Dept/Service: Neurology: Caty Simpson Call to Schedule in: 1st available Scheduled Date/Time: 31-Aug-2017 14:00 Location: [address] [place] [address] Bwphvh-Up Appointment 03: Physician/Dept/Service: ENT (ear, nose, and [...] Updated: 24-Aug-2017 23:59 by Adeola Colon) Normal [facility] PD ABDOMEN, SINGLE VIEWon PD ABDOMEN, SINGLE [...] body.Electronically signed by: COREY JOHNS PHYSICIAN Normal [facility] NR MRI BRAIN WOon 08-13-2017 NR MRI [...] Chiari malformation. The study was interpreted at [facility].Electronicall y signed by: SABAS GARCIA MD Normal [facility] Surgical Pathology Depar tmenton 08-11-2017 [facility] Surgical Pathology Department Name PILI PARIKH Pathologist: [...] submitted in toto in one cassette.MXWmxw/08/11/2017 Normal [facility] Comment on above: Performed By: #### T 4FRE ####[place] [id number] [place] [address] AMYLASEon 08-10-2017 Amylase enzyme act/vol 19 U/L Normal 18 - 76 [facility] Comment on above: Performed By: #### V TDOH ####[place] [id number] [place] [address] C-REACTIVE PROTEINon 017 CRP mass conc 0.34 mg/dL Normal [facility] Comment on above: Result Comment: REF VALUE< 1.00 Performed By: #### V TDOH ####[place] [address] [place] [address] CBC AND DIFFERENTIALon 08-10 % AUTOMATED IMMATURE GRAN 0.3 % Normal 0.0 - 1.0 [facility] Comment on above: Result Comment: Perc ent differential counts (%) should be interpreted in the context of the absolute cell counts (cells/L). Performed By: #### V TDOH ####[facility] [place] [address] % NEUTROPHIL 52.9 % Normal 33.0 - 69.0 [facility] Comment on above: Performed By: #### V TDOH ####[facility] [place] [address] Basophils/100 WBC Auto (Bld) 0.4 % Normal 0.0 - 1.0 [facility] Comment on above: Performed By: #### V TDOH ####[facility] [place] [address] Basophils/100 WBC Auto (Bld) 0.03 x10E9/L Normal 0.00 - 0.10 [facility] Comment on above: Performed By: #### V TDOH ####[facility] [place] [address] Eosinophils Auto #/vol (Bld) 0.29 10*3/uL Normal 0.00 - 0.70 [facility] Comment on above: Performed By: #### V TDOH ####[facility] [place] [address] Eosinophils/100 WBC Auto (Bld) 4.2 % Normal 0.0 - 5.0 [facility] Comment on above: Performed By: #### V TDOH ####[facility] [place] [address] Erythrocyte distribution width Auto Ratio (RBC) 14.1 % Normal 11.5 - 14.5 [facility] Comment on above: Performed By: #### V TDOH ####[facility] [place] [address] Hematocrit Auto Volume Fraction (Bld) 35.4 % Low 36.0 - 46.0 [facility] Comment on above: Performed By: #### V TDOH ####[facility] [place] [address] Hemoglobin mass conc (Bld) 11.0 g/dL Low 12.0 - 16.0 [facility] Comment on above: Performed By: #### V TDOH ####[facility] [place] [address] Lymphocytes Auto #/vol (Bld) 2.33 10*3/uL Normal 1.80 - 4.80 [facility] Comment on above: Performed By: #### V TDOH ####[facility] [place] [address] Lymphocytes/100 WBC Auto (Bld) 33.8 % Normal 28.0 - 48.0 [facility] Comment on above: Performed By: #### V TDOH ####[facility] [place] [address] MCHC Auto mass conc (RBC) 31.1 g/dL Normal 31.0 - 37.0 [facility] Comment on above: Performed By: #### V TDOH ####[facility] [place] [address] MCV Auto Entitic volume (RBC) 80 fL Normal 78 - 102 [facility] Comment on above: Performed By: #### V TDOH ####[facility] [place] [address] Monocytes Auto #/vol (Bld) 0.58 10*3/uL Normal 0.10 - 1.00 [facility] Comment on above: Performed By: #### V TDOH ####[facility] [place] [address] Monocytes/100 WBC Auto (Bld) 8.4 % Normal 3.0 - 9.0 [facility] Comment on above: Performed By: #### V TDOH ####[facility] [place] [address] Neutrophils Auto #/vol (Bld) 3.65 10*3/uL Normal 1.20 - 7.70 [facility] Comment on above: Performed By: #### V TDOH ####[facility] [place] [address] Nucleated RBC/100 WBC Ratio (Bld) 0.0 /100 WBC Normal 0.0-0.0 [facility] Comment on above: Performed By: #### V TDOH ####[facility] [place] [address] Platelets Auto #/vol (Bld) 256 10*3/uL Normal 150 - 400 [facility] Comment on above: Performed By: #### V TDOH ####[facility] [place] [address] RBC Auto #/vol (Bld) 4.40 x10E12/L Normal 4.10 - 5.20 [facility] Comment on above: Performed By: #### V TDOH ####[facility] [place] [address] WBC Auto #/vol (Bld) 6.9 10*3/uL Normal 4.5 - 13.5 [facility] Comment on above: Performed By: #### V TDOH ####[facility] [place] [address] CELIAC DISEASE SEROLOGY PANE Tushar 08-10-2017 GLIADIN ABS, IGA 0 Normal 0 - 14 [facility] Comment on above: Result Comment: Fals e negative Deamidated Gliadin Peptide Antibody, IgA results can occur in patients already adhering to a gluten-free diet or patients with IgA deficiency. Tissue Transglutaminase Antibody, IgA is the preferred test for screening patients with suspected Celiac Disease. Performed By: #### T 4FRE ####[facility] [place] [address] GLIADIN ABS, IGG <1 Normal 0 - 14 [facility] Comment on above: Result Comment: Fals e negative Deamidated Gliadin Peptide Antibody, IgG results can occur in patients already adhering to a gluten-free diet. Tissue Transglutaminase Antibody, IgA is the preferred test for screening patients with suspected Celiac Disease. Performed By: #### T 4FRE ####[facility] [place] [address] TTG AB,IGA <1 Normal 0 - 14 [facility] Comment on above: Result Comment: Loni ac disease is unlikely. False negative Tissue Transglutaminase Antibody, IgA results can occur in approximately 10% of patients with celiac disease, patients already adhering to a gluten-free diet, or patients with IgA deficiency. Performed By: #### T 4FRE ####[facility] [place] [address] TTG AB,IGG <1 Normal 0 - 14 [facility] Comment on above: Result Comment: Fals e negative Tissue Transglutaminase Antibody, IgG results can occur in patients already adhering to a gluten-free diet. Tissue Transglutaminase Antibody, IgA is the preferred test for screening patients with suspected Celiac Disease. Performed By: #### T 4FRE ####[facility] [place] [address] COAGULATION SCREENon 017 aPTT Coag time (Bld) 28 s Normal 25 - 36 [facility] Comment on above: Result Comment: THE APTT IS NO LONGER USED FOR MONITORING UNFRACTIONATED HEPARIN THERAPY. FOR MONITORING HEPARIN THERAPY, USE THE HEPARIN ASSAY. Performed By: #### V TDOH ####[facility] [place] [address] INR Coag RelTime (PPP) 1.1 {INR} Normal 0.9 - 1.1 [facility] Comment on above: Performed By: #### V TDOH ####[facility] [place] [address] Prothrombin time (PT) Coag time (PPP) 12.1 s Normal 9.8 - 12.7 [facility] Comment on above: Performed By: #### V TDOH ####[facility] [place] [address] HEPATIC FUNCTION PANELon ALP enzyme act/vol 128 U/L Normal 52 - 239 [facility] Comment on above: Performed By: #### V TDOH ####[facility] [place] [address] ALT enzyme act/vol 39 U/L High 3 - 28 [facility] Comment on above: Result Comment: Christen ents treated with Sulfasalazine may generate falsely decreased results for ALT. Performed By: #### V TDOH ####[facility] [place] [address] AST enzyme act/vol 27 U/L High 9 - 24 [facility] Comment on above: Performed By: #### V TDOH ####[facility] [place] [address] Bilirubin mass conc 0.4 mg/dL Normal 0.0 - 0.9 [facility] Comment on above: Performed By: #### V TDOH ####[facility] [place] [address] Bilirubin.direct mass conc 0.1 mg/dL Normal 0.0 - 0.3 [facility] [facility] Comment on above: Performed By: #### V TDOH ####[facility] [place] [address] Protein mass conc 5.7 g/dL Low 6.2 - 7.7 [facility] Comment on above: Performed By: #### V TDOH ####[facility] [place] [address] LIPASEon 08-10-2017 Lipase enzyme act/vol 16 U/L Normal 9 - 82 [facility] Comment on above: Result Comment: Shanda puncture immediately after or during the administration of Metamizole may lead to falsely low results. Testing should be performed immediately prior to Metamizole dosing. Performed By: #### V TDOH ####[facility] [place] [address] RENAL FUNCTION PANELon 08-10 Albumin mass conc 3.8 g/dL Normal 3.4 - 5.0 [facility] Comment on above: Performed By: #### T 4FRE ####[facility] [place] [address] Performed By: #### V TDOH ####[facility] [place] [address] Anion gap 3 molar conc 13 mmol/L Normal 10 - 30 [facility] Comment on above: Performed By: #### T 4FRE ####[facility] [place] [address] Calcium mass conc 9.2 mg/dL Normal 8.5 - 10.7 [facility] Comment on above: Performed By: #### T 4FRE ####[facility] [place] [address] Chloride molar conc 106 mmol/L Normal 98 - 107 [facility] Comment on above: Performed By: #### T 4FRE ####[facility] [place] [address] Creatinine mass conc 0.56 mg/dL Normal 0.50 - 1.00 [facility] Comment on above: Performed By: #### T 4FRE ####[facility] [place] [address] Glucose mass conc 106 mg/dL High 74 - 99 [facility] Comment on above: Performed By: #### T 4FRE ####[facility] [place] [address] HCO3 molar conc (Bld) 26 mmol/L Normal 18 - 27 [facility] Comment on above: Performed By: #### T 4FRE ####[facility] [place] [address] Phosphate mass conc 4.3 mg/dL Normal 3.0 - 5.4 [facility] Comment on above: Result Comment: The performance characteristics of phosphorus testing in heparinized plasma have been validated by the individual laboratory site where testing is performed. Testing on heparinized plasma is not approved by the FDA; however, such approval is not necessary. Performed By: #### T 4FRE ####[facility] [place] [address] Potassium molar conc 3.9 mmol/L Normal 3.5 - 5.3 [facility] Comment on above: Performed By: #### T 4FRE ####[facility] [place] [address] Sodium molar conc 141 mmol/L Normal 136 - 145 [facility] Comment on above: Performed By: #### T 4FRE ####[facility] [place] [address] Urea nitrogen mass conc 11 mg/dL Normal 6 - 23 [facility] Comment on above: Performed By: #### T 4FRE ####[facility] [place] [address] AMYLASEon 08-09-2017 Amylase enzyme act/vol 22 U/L Normal 18 - 76 [facility] Comment on above: Performed By: #### A MY ####[facility] [place] [address] C-REACTIVE PROTEINon 017 CRP mass conc 0.36 mg/dL Normal [facility] Comment on above: Result Comment: REF VALUE< 1.00 Performed By: #### C RP ####[facility] [place] [address] CBC AND DIFFERENTIALon 08-09 % AUTOMATED IMMATURE GRAN 0.3 % Normal 0.0 - 1.0 [facility] Comment on above: Result Comment: Perc ent differential counts (%) should be interpreted in the context of the absolute cell counts (cells/L). Performed By: #### C BCDF ####[facility] [place] [address] % NEUTROPHIL 60.6 % Normal 33.0 - 69.0 [facility] Comment on above: Performed By: #### C BCDF ####[facility] [place] [address] Basophils/100 WBC Auto (Bld) 0.04 x10E9/L Normal 0.00 - 0.10 [facility] Comment on above: Performed By: #### C BCDF ####[facility] [place] [address] Basophils/100 WBC Auto (Bld) 0.5 % Normal 0.0 - 1.0 [facility] Comment on above: Performed By: #### C BCDF ####[facility] [place] [address] Eosinophils Auto #/vol (Bld) 0.28 10*3/uL Normal 0.00 - 0.70 [facility] Comment on above: Performed By: #### C BCDF ####[facility] [place] [address] Eosinophils/100 WBC Auto (Bld) 3.6 % Normal 0.0 - 5.0 [facility] Comment on above: Performed By: #### C BCDF ####[facility] [place] [address] Erythrocyte distribution width Auto Ratio (RBC) 14.4 % Normal 11.5 - 14.5 [facility] Comment on above: Performed By: #### C BCDF ####[facility] [place] [address] Hematocrit Auto Volume Fraction (Bld) 37.7 % Normal 36.0 - 46.0 [facility] Comment on above: Performed By: #### C BCDF ####[facility] [place] [address] Hemoglobin mass conc (Bld) 11.5 g/dL Low 12.0 - 16.0 [facility] Comment on above: Performed By: #### C BCDF ####[facility] [place] [address] Lymphocytes Auto #/vol (Bld) 2.20 10*3/uL Normal 1.80 - 4.80 [facility] Comment on above: Performed By: #### C BCDF ####[facility] [place] [address] Lymphocytes/100 WBC Auto (Bld) 28.2 % Normal 28.0 - 48.0 [facility] Comment on above: Performed By: #### C BCDF ####[facility] [place] [address] MCHC Auto mass conc (RBC) 30.5 g/dL Low 31.0 - 37.0 [facility] Comment on above: Performed By: #### C BCDF ####[facility] [place] [address] MCV Auto Entitic volume (RBC) 82 fL Normal 78 - 102 [facility] Comment on above: Performed By: #### C BCDF ####[facility] [place] [address] Monocytes Auto #/vol (Bld) 0.53 10*3/uL Normal 0.10 - 1.00 [facility] Comment on above: Performed By: #### C BCDF ####[facility] [place] [address] Monocytes/100 WBC Auto (Bld) 6.8 % Normal 3.0 - 9.0 [facility] Comment on above: Performed By: #### C BCDF ####[facility] [place] [address] Neutrophils Auto #/vol (Bld) 4.73 10*3/uL Normal 1.20 - 7.70 [facility] Comment on above: Performed By: #### C BCDF ####[facility] [place] [address] Nucleated RBC/100 WBC Ratio (Bld) 0.0 /100 WBC Normal 0.0-0.0 [facility] Comment on above: Performed By: #### C BCDF ####[facility] [place] [address] Platelets Auto #/vol (Bld) 290 10*3/uL Normal 150 - 400 [facility] Comment on above: Performed By: #### C BCDF ####[facility] [place] [address] RBC Auto #/vol (Bld) 4.62 x10E12/L Normal 4.10 - 5.20 [facility] Comment on above: Performed By: #### C BCDF ####[facility] [place] [address] WBC Auto #/vol (Bld) 7.8 10*3/uL Normal 4.5 - 13.5 [facility] Comment on above: Performed By: #### C BCDF ####[facility] [place] [address] COAGULATION SCREENon 017 aPTT Coag time (Bld) 29 s Normal 25 - 36 [facility] Comment on above: Result Comment: THE APTT IS NO LONGER USED FOR MONITORING UNFRACTIONATED HEPARIN THERAPY. FOR MONITORING HEPARIN THERAPY, USE THE HEPARIN ASSAY. Performed By: #### V TDOH ####[facility] [place] [address] INR Coag RelTime (PPP) 1.2 {INR} High 0.9 - 1.1 [facility] Comment on above: Performed By: #### V TDOH ####[facility] [place] [address] Prothrombin time (PT) Coag time (PPP) 12.9 s High 9.8 - 12.7 [facility] Comment on above: Performed By: #### V TDOH ####[facility] [place] [address] ESR-WESTERGRENon 08-09-2017 ESR-WESTERGREN 8 mm/h Normal 0 - 13 [facility] Comment on above: Performed By: #### V TDOH ####[facility] [place] [address] GGTon 08-09-2017 GGT 20 U/L Normal 5 - 20 [facility] Comment on above: Performed By: #### G GT ####[facility] [place] [address] HEMOGLOBIN A1Con 08-09-2017 Hemoglobin A1c/Hemoglobin.total mass fraction (Bld) 5.6 % Normal [facility] Comment on above: Result Comment: Diag nosis of Diabetes-Adults Non-Diabetic: < or = 5.6% Increased risk for developing diabetes: 5.7-6.4% Diagnostic of diabetes: > or = 6.5%. Monitoring of Diabetes Age (y) Therapeutic Goal (%) Adults: >18 <7.0 Pediatrics: 13-18 <7.5 7-12 <8.0 0- 6 7.5-8.5 [employer] [employer]. Diabetes Care 33(S1), Nov 2009. Performed By: #### V TDOH ####[facility] [place] [address] HEPATIC FUNCTION PANELon ALP enzyme act/vol 133 U/L Normal 52 - 239 [facility] Comment on above: Performed By: #### H EPFP ####[facility] [place] [address] ALT enzyme act/vol 41 U/L High 3 - 28 [facility] Comment on above: Result Comment: Christen ents treated with Sulfasalazine may generate falsely decreased results for ALT. Performed By: #### H EPFP ####[facility] [place] [address] AST enzyme act/vol 25 U/L High 9 - 24 [facility] Comment on above: Performed By: #### H EPFP ####[facility] [place] [address] Bilirubin mass conc 0.3 mg/dL Normal 0.0 - 0.9 [facility] Comment on above: Performed By: #### H EPFP ####[facility] [place] [address] Bilirubin.direct mass conc 0.1 mg/dL Normal 0.0 - 0.3 [facility] Comment on above: Performed By: #### H EPFP ####[facility] [place] [address] Protein mass conc 6.7 g/dL Normal 6.2 - 7.7 [facility] Comment on above: Performed By: #### H EPFP ####[facility] [place] [address] IRON + TIBCon 08-09-2017 % SATURATION 13 % Low 25 - 45 [facility] Comment on above: Performed By: #### I RONT ####[facility] [place] [address] Iron mass conc 53 ug/dL Normal 23 - 138 [facility] Comment on above: Performed By: #### I RONT ####[facility] [place] [address] TIBC 407 ug/dL Normal 240 - 445 [facility] Comment on above: Performed By: #### I RONT ####[facility] [place] [address] LIPASEon 08-09-2017 Lipase enzyme act/vol 17 U/L Normal 9 - 82 [facility] Comment on above: Result Comment: Shanda puncture immediately after or during the administration of Metamizole may lead to falsely low results. Testing should be performed immediately prior to Metamizole dosing. Performed By: #### L IPAS ####[facility] [place] [address] RENAL FUNCTION PANELon 08-09 Albumin mass conc 4.3 g/dL Normal 3.4 - 5.0 [facility] Comment on above: Performed By: #### V TDOH ####[facility] [place] [address] Performed By: #### H EPFP ####[facility] [place] [address] Anion gap 3 molar conc 13 mmol/L Normal 10 - 30 [facility] Comment on above: Performed By: #### V TDOH ####[facility] [place] [address] Calcium mass conc 9.5 mg/dL Normal 8.5 - 10.7 [facility] Comment on above: Performed By: #### V TDOH ####[facility] [place] [address] Chloride molar conc 105 mmol/L Normal 98 - 107 [facility] Comment on above: Performed By: #### V TDOH ####[facility] [place] [address] Creatinine mass conc 0.50 mg/dL Normal 0.50 - 1.00 [facility] Comment on above: Performed By: #### V TDOH ####[facility] [place] [address] Glucose mass conc 83 mg/dL Normal 74 - 99 [facility] Comment on above: Performed By: #### V TDOH ####[facility] [place] [address] HCO3 molar conc (Bld) 27 mmol/L Normal 18 - 27 [facility] Comment on above: Performed By: #### V TDOH ####[facility] [place] [address] Phosphate mass conc 4.1 mg/dL Normal 3.0 - 5.4 [facility] Comment on above: Result Comment: The performance characteristics of phosphorus testing in heparinized plasma have been validated by the individual laboratory site where testing is performed. Testing on heparinized plasma is not approved by the FDA; however, such approval is not necessary. Performed By: #### V TDOH ####[facility] [place] [address] Potassium molar conc 4.1 mmol/L Normal 3.5 - 5.3 [facility] Comment on above: Performed By: #### V TDOH ####[facility] [place] [address] Sodium molar conc 141 mmol/L Normal 136 - 145 [facility] Comment on above: Performed By: #### V TDOH ####[facility] [place] [address] Urea nitrogen mass conc 11 mg/dL Normal 6 - 23 [facility] Comment on above: Performed By: #### V TDOH ####[facility] [place] [address] THYROXINE,FREEon 08-09-2017 THYROXINE,FREE 1.08 ng/dL Normal 0.78 - 1.48 [facility] Comment on above: Result Comment: Thyr oxine Free testing is performed using different testing methodology at [facility] than at other [facility]. Direct result comparisons should only be made within the same method.. Patients receiving more than 5 mg/day of biotin may have interference in test results. A sample should be taken no sooner than eight hours after previous dose. Contact [phone] for additional information. Performed By: #### T 4FRE ####[facility] [place] [address] TSHon 08-09-2017 Thyrotropin Qn 1.71 m[IU]/L Normal 0.44 - 3.98 [facility] Comment on above: Result Comment: TSH testing is performed using different testing methodology at [facility] than at other [facility]. Direct result comparisons should only be made within the same method.. Patients receiving more than 5 mg/day of biotin may have interference in test results. A sample should be taken no sooner than eight hours after previous dose. Contact [phone] for additional information. Performed By: #### T SH2 ####[facility] [place] [address] VITAMIN D, 25-HYDROXYon 07-29 VITAMIN D, 25-HYDROXY 28 ng/mL Abnormal [facility] Comment on above: Result Comment: .DEF ICIENCY: < 20 NG/MLINSUFFICIENCY: 20-29 NG/MLOPTIMUM LEVEL: 30-80 NG/MLPOSSIBLE TOXICITY: > 80 NG/MLTHIS ASSAY ACCURATELY QUANTIFIES THE SUM OFVITAMIN D3, 25-HYDROXY AND VIT D2,25-HYDROXY. Performed By: #### V TDOH ####[facility] [place] [address] Vital Signs Date Time Vital Sign Value Performing Clinician Facility 08-03-2024 23:10-0400 Diastolic blood pressure 68 mm[Hg] [facility] Work Phone: [facility] 08-03-2024 23:10-0400 Heart rate 95 /min [facility] [employer] Work Phone: [facility] 08-03-2024 23:10-0400 Respiratory rate 18 /min Services elicit Phone: [facility] 08-03-2024 23:10-0400 SaO2% (BldA) [Mass fraction] 99 % [facility] [employer] Work Phone: [facility] 08-03-2024 23:10-0400 Systolic blood pressure 115 mm[Hg] Services elicit Phone: [facility] 08-03-2024 20:35-0400 Body height 157.48 cm Services elicit Phone: [facility] 08-03-2024 20:35-0400 Body temperature 99.1 [degF] Services elicit Phone: [facility] 08-03-2024 20:35-0400 Body weight 90.71 kg Services [facility] Work Phone: [facility] 07-30-2024 22:55-0400 Diastolic blood pressure 72 mm[Hg] Cresencio Abel [facility] 07-30-2024 22:55-0400 Heart rate 50 /min Cresencio Colten [facility] 07-30-2024 22:55-0400 Mean blood pressure 83 mm[Hg] Cresencio Colten [facility] 07-30-2024 22:55-0400 Respiratory rate 16 /min Cresencio Colten [facility] 07-30-2024 22:55-0400 SaO2% (BldA) [Mass fraction] 98 % Cresencio Colten [facility] 07-30-2024 22:55-0400 Systolic blood pressure 104 mm[Hg] Cresencio Colten [facility] 07-30-2024 19:28-0400 Body temperature 98.06 [degF] Cresencio Colten [facility] 07-30-2024 19:28-0400 Diastolic blood pressure 76 mm[Hg] Cresencio Colten [facility] 07-30-2024 19:28-0400 Heart rate 55 /min Cresencio Colten [facility] 07-30-2024 19:28-0400 Respiratory rate 16 /min Cresencio Colten [facility] 07-30-2024 19:28-0400 SaO2% (BldA) [Mass fraction] 97 % Cresencio Colten [facility] 07-30-2024 19:28-0400 Systolic blood pressure 118 mm[Hg] Cresencio Colten [facility] 03-19-2024 00:10-0400 Diastolic blood pressure 90 mm[Hg] [facility] Work Phone: [facility] 03-19-2024 00:10-0400 Heart rate 110 /min [facility] Work Phone: [facility] 03-19-2024 00:10-0400 Respiratory rate 18 /min [facility] [employer] Work Phone: [facility] 03-19-2024 00:10-0400 SaO2% (BldA) [Mass fraction] 100 % [facility] Work Phone: [facility] 03-19-2024 00:10-0400 Systolic blood pressure 144 mm[Hg] [facility] Work Phone: [facility] 03-18-2024 22:03-0400 Body height 160.02 cm [facility] [employer] Work Phone: [facility] 03-18-2024 22:03-0400 Body temperature 98.3 [degF] [facility] [employer] Work Phone: [facility] 03-18-2024 22:03-0400 Body weight 92.2 kg [facility] [employer] Work Phone: [facility] 03-15-2024 13:43-0400 Diastolic blood pressure 89 mm[Hg] [facility] 03-15-2024 13:43-0400 Heart rate 51 /min [facility] 03-15-2024 13:43-0400 Mean blood pressure 107 mm[Hg] [facility] 03-15-2024 13:43-0400 Respiratory rate 16 /min [facility] 03-15-2024 13:43-0400 SaO2% (BldA) [Mass fraction] 100 % [facility] 03-15-2024 13:43-0400 Systolic blood pressure 144 mm[Hg] [facility] 03-15-2024 12:01-0400 Diastolic blood pressure 87 mm[Hg] [facility] 03-15-2024 12:01-0400 Heart rate 52 /min [facility] 03-15-2024 12:01-0400 Mean blood pressure 107 mm[Hg] [facility] 03-15-2024 12:01-0400 SaO2% (BldA) [Mass fraction] 100 % [facility] 03-15-2024 12:01-0400 Systolic blood pressure 148 mm[Hg] [facility] 03-15-2024 10:35-0400 Body temperature 97.52 [degF] [facility] 03-15-2024 10:35-0400 Diastolic blood pressure 86 mm[Hg] [facility] 03-15-2024 10:35-0400 Heart rate 60 /min [facility] 03-15-2024 10:35-0400 Respiratory rate 18 /min [facility] 03-15-2024 10:35-0400 SaO2% (BldA) [Mass fraction] 98 % [facility] 03-15-2024 10:35-0400 Systolic blood pressure 143 mm[Hg] [facility] 03-13-2024 22:00-0400 Diastolic blood pressure 105 mm[Hg] Jacinto Roman [facility] 03-13-2024 22:00-0400 Heart rate 53 /min Jacinto Roman [facility] 03-13-2024 22:00-0400 Mean blood pressure 117 mm[Hg] Jacinto Roman [facility] 03-13-2024 22:00-0400 SaO2% (BldA) [Mass fraction] 100 % Jacinto Roman [facility] 03-13-2024 22:00-0400 Systolic blood pressure 140 mm[Hg] Jacinto Jessie [facility] 03-13-2024 21:00-0400 Diastolic blood pressure 106 mm[Hg] Jacinto Jessie [facility] 03-13-2024 21:00-0400 Heart rate 93 /min Jacinto Jessie [facility] 03-13-2024 21:00-0400 Mean blood pressure 119 mm[Hg] Jacinto Jessie [facility] 03-13-2024 21:00-0400 Respiratory rate 21 /min Jacinto Jessie [facility] 03-13-2024 21:00-0400 SaO2% (BldA) [Mass fraction] 98 % Jacinto Jessie [facility] 03-13-2024 21:00-0400 Systolic blood pressure 144 mm[Hg] Jacinto Jessie [facility] 03-13-2024 20:00-0400 Diastolic blood pressure 103 mm[Hg] Jacinto Jessie [facility] 03-13-2024 20:00-0400 Heart rate 50 /min Jacinto Jessie [facility] 03-13-2024 20:00-0400 Mean blood pressure 120 mm[Hg] Jacinto Jessie [facility] 03-13-2024 20:00-0400 Systolic blood pressure 153 mm[Hg] Jacinto Jessie [facility] 03-13-2024 19:38-0400 Respiratory rate 14 /min Jacinto Jessie [facility] 03-13-2024 18:36-0400 Respiratory rate 18 /min Jacinto Jessie [facility] 03-13-2024 17:51-0400 Body temperature 98.24 [degF] Jacinto Roman [facility] 03-13-2024 17:36-0400 Body temperature 98.24 [degF] Jacinto Roman [facility] 03-13-2024 17:36-0400 Heart rate 61 /min Jacinto Roman [facility] 03-13-2024 17:36-0400 Respiratory rate 18 /min Jacinto Roman [facility] 07-31-2023 18:09-0400 Body height 157.48 cm [facility] Work Phone: [facility] 07-31-2023 18:09-0400 Body temperature 98.6 [degF] [facility] Work Phone: [facility] 07-31-2023 18:09-0400 Body weight 84 kg [facility] Work Phone: [facility] 07-31-2023 18:09-0400 Diastolic blood pressure 106 mm[Hg] [facility] Work Phone: [facility] 07-31-2023 18:09-0400 Heart rate 87 /min [facility] Work Phone: [facility] 07-31-2023 18:09-0400 Respiratory rate 18 /min [facility] Work Phone: [facility] 07-31-2023 18:09-0400 SaO2% (BldA) [Mass fraction] 98 % [facility] Work Phone: [facility] 07-31-2023 18:09-0400 Systolic blood pressure 150 mm[Hg] [facility] Work Phone: [facility] 05-25-2023 13:11-0400 Diastolic blood pressure 96 mm[Hg] [facility] Work Phone: [facility] 05-25-2023 13:11-0400 Heart rate 60 /min [facility] [employer] Work Phone: [facility] 05-25-2023 13:11-0400 Respiratory rate 16 /min Services [facility] Work Phone: [facility] 05-25-2023 13:11-0400 SaO2% (BldA) [Mass fraction] 97 % [facility] [employer] Work Phone: [facility] 05-25-2023 13:11-0400 Systolic blood pressure 160 mm[Hg] Services [facility] Work Phone: [facility] 05-25-2023 11:56-0400 Inhaled oxygen flow rate 6 L/min Services [facility] Work Phone: [facility] 05-25-2023 11:54-0400 Body temperature 97.2 [degF] [facility] [employer] Work Phone: [facility] 05-25-2023 09:39-0400 Body height 160.02 cm [facility] [employer] Work Phone: [facility] 05-25-2023 09:39-0400 Body mass index (BMI) [Percentile] Per age and sex 96.6 % Services [facility] Phone: [facility] 05-25-2023 09:39-0400 Body mass index (BMI) [Ratio] 33.6 kg/m2 Services [employer] Work Phone: [facility] 05-25-2023 09:39-0400 Body weight 86.18 kg Services [employer] Work Phone: [facility] 05-23-2023 08:00-0400 Body height 157.48 cm Colten Miller Other [employer] Other 05-23-2023 08:00-0400 Body mass index (BMI) [Ratio] 34.75 kg/m2 Colten Miller Other [employer] Other 05-23-2023 08:00-0400 Body weight 86.18 kg Colten Miller Other [facility] [employer] Other 01-07-2023 14:08-0500 Body height 157.48 cm [facility] Work Phone: [facility] 01-07-2023 12:34-0500 Body temperature 98.1 [degF] [facility] Work Phone: [facility] 01-07-2023 12:34-0500 Diastolic blood pressure 86 mm[Hg] Services [facility] Work Phone: [facility] 01-07-2023 12:34-0500 Heart rate 75 /min Services [facility] [employer] Work Phone: [facility] 01-07-2023 12:34-0500 SaO2% (BldA) [Mass fraction] 100 % Services [facility] Work Phone: [facility] 01-07-2023 12:34-0500 Systolic blood pressure 147 mm[Hg] Services [facility] Work Phone: [facility] 01-07-2023 11:57-0500 Respiratory rate 18 /min Services [facility] [employer] Work Phone: [facility] 01-07-2023 06:00-0500 Body weight 78.2 kg Services [facility] [employer] [facility] Work Phone: [facility] 01-06-2023 18:29-0500 Diastolic blood pressure 82 mm[Hg] Services [facility] Work Phone: [facility] 01-06-2023 18:29-0500 Heart rate 64 /min Services [facility] Work Phone: [facility] 01-06-2023 18:29-0500 Respiratory rate 16 /min Services [facility] [employer] Work Phone: [facility] 01-06-2023 18:29-0500 SaO2% (BldA) [Mass fraction] 98 % Services [facility] Work Phone: [facility] 01-06-2023 18:29-0500 Systolic blood pressure 139 mm[Hg] Services [facility] Work Phone: [facility] 01-06-2023 11:12-0500 Body height 157.48 cm Services [facility] Work Phone: [facility] 01-06-2023 11:12-0500 Body temperature 98 [degF] Services [facility] Work Phone: [facility] 01-06-2023 11:12-0500 Body weight 77.11 kg Services [facility] Work Phone: [facility] 01-02-2023 04:00-0500 Heart rate 62 /min Services [facility] Work Phone: [facility] 01-02-2023 04:00-0500 Respiratory rate 18 /min Services [facility] Work Phone: [facility] 01-02-2023 04:00-0500 SaO2% (BldA) [Mass fraction] 100 % Services [facility] Work Phone: [facility] 01-02-2023 02:37-0500 Diastolic blood pressure 85 mm[Hg] Services [facility] Work Phone: [facility] 01-02-2023 02:37-0500 Systolic blood pressure 155 mm[Hg] Services [facility] Work Phone: [facility] 01-02-2023 01:14-0500 Body height 157.48 cm Services [facility] Work Phone: [facility] 01-02-2023 01:14-0500 Body temperature 98 [degF] Services [facility] Work Phone: [facility] 01-02-2023 01:14-0500 Body weight 77.11 kg Services [facility] Work Phone: [facility] 12-31-2022 12:11-0500 Heart rate 70 /min Services [facility] Work Phone: [facility] 12-31-2022 12:08-0500 Body height 157.48 cm Services [facility] Work Phone: [facility] 12-31-2022 12:08-0500 Body temperature 97.7 [degF] Services [facility] Work Phone: [facility] 12-31-2022 12:08-0500 Body weight 79 kg Services [facility] [facility] Work Phone: [facility] 12-31-2022 12:08-0500 Diastolic blood pressure 87 mm[Hg] Services [facility] Work Phone: [facility] 12-31-2022 12:08-0500 Respiratory rate 18 /min Services [facility] Work Phone: [facility] 12-31-2022 12:08-0500 SaO2% (BldA) [Mass fraction] 99 % Services [facility] Work Phone: [facility] 12-31-2022 12:08-0500 Systolic blood pressure 134 mm[Hg] Services [facility] Work Phone: [facility] 11-09-2022 15:15-0500 Body height 157.48 cm Services [facility] Work Phone: [facility] 11-09-2022 15:15-0500 Body temperature 98.4 [degF] Services [facility] Work Phone: [facility] 11-09-2022 15:15-0500 Body weight 81.64 kg Services [facility] Work Phone: [facility] 11-09-2022 15:15-0500 Diastolic blood pressure 90 mm[Hg] Services [facility] Work Phone: [facility] 11-09-2022 15:15-0500 Heart rate 95 /min Services [facility] Work Phone: [facility] 11-09-2022 15:15-0500 Respiratory rate 16 /min [facility] Work Phone: [facility] 11-09-2022 15:15-0500 SaO2% (BldA) [Mass fraction] 100 % [facility] Work Phone: [facility] 11-09-2022 15:15-0500 Systolic blood pressure 140 mm[Hg] [facility] Work Phone: [facility] 11-07-2022 13:40-0500 Diastolic blood pressure 85 mm[Hg] [facility] Work Phone: [facility] 11-07-2022 13:40-0500 Heart rate 68 /min Services [facility] Work Phone: [facility] 11-07-2022 13:40-0500 Respiratory rate 16 /min Services [facility] Work Phone: [facility] 11-07-2022 13:40-0500 SaO2% (BldA) [Mass fraction] 100 % Services [facility] Work Phone: [facility] 11-07-2022 13:40-0500 Systolic blood pressure 119 mm[Hg] Services [facility] Work Phone: [facility] 11-07-2022 11:05-0500 Body temperature 98.2 [degF] [facility] Work Phone: [facility] 11-07-2022 11:04-0500 Body height 158.75 cm [facility] Work Phone: [facility] 11-07-2022 11:04-0500 Body weight 77 kg [facility] Work Phone: [facility] 11-02-2022 09:53-0500 Diastolic blood pressure 89 mm[Hg] Services [facility] Work Phone: [facility] 11-02-2022 09:53-0500 Heart rate 50 /min [facility] Work Phone: [facility] 11-02-2022 09:53-0500 Respiratory rate 18 /min [facility] Work Phone: [facility] 11-02-2022 09:53-0500 SaO2% (BldA) [Mass fraction] 98 % [facility] Work Phone: [facility] 11-02-2022 09:53-0500 Systolic blood pressure 156 mm[Hg] [facility] Work Phone: [facility] 11-02-2022 03:00-0500 Body height 157.48 cm Services [facility] Work Phone: [facility] 11-02-2022 03:00-0500 Body temperature 98.4 [degF] Services [facility] Work Phone: [facility] 11-02-2022 03:00-0500 Body weight 78 kg Services [facility] Work Phone: [facility] 10-31-2022 10:05-0500 Diastolic blood pressure 85 mm[Hg] Services [facility] Work Phone: [facility] 10-31-2022 10:05-0500 Heart rate 59 /min Services [facility] Work Phone: [facility] 10-31-2022 10:05-0500 Respiratory rate 18 /min Services [facility] Work Phone: [facility] 10-31-2022 10:05-0500 SaO2% (BldA) [Mass fraction] 98 % Services [facility] Work Phone: [facility] 10-31-2022 10:05-0500 Systolic blood pressure 137 mm[Hg] Services [facility] Work Phone: [facility] 10-31-2022 08:50-0500 Body height 157.48 cm Services [facility] [facility] Work Phone: [facility] 10-31-2022 08:50-0500 Body temperature 98.2 [degF] [facility] Work Phone: [facility] 10-31-2022 08:50-0500 Body weight 83.91 kg [facility] Work Phone: [facility] 10-29-2022 12:01-0500 Body height 157.48 cm Services [facility] Work Phone: [facility] 10-29-2022 12:01-0500 Body temperature 97.8 [degF] [facility] Work Phone: [facility] 10-29-2022 12:01-0500 Body weight 81 kg Services [facility] Work Phone: [facility] 10-29-2022 12:01-0500 Diastolic blood pressure 84 mm[Hg] Services [facility] Work Phone: [facility] 10-29-2022 12:01-0500 Heart rate 60 /min Services [facility] Work Phone: [facility] 10-29-2022 12:01-0500 Respiratory rate 18 /min Services [facility] Work Phone: [facility] 10-29-2022 12:01-0500 SaO2% (BldA) [Mass fraction] 99 % Services [facility] Work Phone: [facility] 10-29-2022 12:01-0500 Systolic blood pressure 109 mm[Hg] Services [facility] Work Phone: [facility] 08-22-2022 12:00-0400 Body temperature 98 [degF] Services [facility] Work Phone: [facility] 08-22-2022 12:00-0400 Diastolic blood pressure 78 mm[Hg] [facility] Work Phone: [facility] 08-22-2022 12:00-0400 Heart rate 80 /min [facility] Work Phone: [facility] 08-22-2022 12:00-0400 Respiratory rate 18 /min [facility] Work Phone: [facility] 08-22-2022 12:00-0400 SaO2% (BldA) [Mass fraction] 95 % [facility] Work Phone: [facility] 08-22-2022 12:00-0400 Systolic blood pressure 121 mm[Hg] [facility] Work Phone: [facility] 08-22-2022 05:50-0400 Body weight 77.5 kg [facility] Work Phone: [facility] 08-21-2022 11:27-0400 Body height 157.48 cm [facility] Work Phone: [facility] 08-20-2022 16:34-0400 Diastolic blood pressure 90 mm[Hg] Services [facility] Work Phone: [facility] 08-20-2022 16:34-0400 Heart rate 68 /min [facility] Work Phone: [facility] 08-20-2022 16:34-0400 Respiratory rate 20 /min [facility] Work Phone: [facility] 08-20-2022 16:34-0400 SaO2% (BldA) [Mass fraction] 96 % Services [facility] Work Phone: [facility] 08-20-2022 16:34-0400 Systolic blood pressure 142 mm[Hg] Services [facility] Work Phone: [facility] 08-20-2022 11:58-0400 Body height 157.48 cm [facility] Work Phone: [facility] 08-20-2022 11:58-0400 Body temperature 97.9 [degF] Services [facility] Work Phone: [facility] 08-20-2022 11:58-0400 Body weight 79.37 kg [facility] Work Phone: [facility] 08-20-2022 01:00-0400 Body temperature 97.9 [degF] Services [facility] Work Phone: [facility] 08-20-2022 01:00-0400 Diastolic blood pressure 72 mm[Hg] Services [facility] Work Phone: [facility] 08-20-2022 01:00-0400 Heart rate 53 /min [facility] Work Phone: [facility] 08-20-2022 01:00-0400 Respiratory rate 16 /min [facility] Work Phone: [facility] 08-20-2022 01:00-0400 SaO2% (BldA) [Mass fraction] 97 % Services [facility] Work Phone: [facility] 08-20-2022 01:00-0400 Systolic blood pressure 131 mm[Hg] [facility] Work Phone: [facility] 08-19-2022 18:57-0400 Body height 157.48 cm [facility] Work Phone: [facility] 08-19-2022 18:57-0400 Body weight 79.37 kg [facility] Work Phone: [facility] 08-19-2022 14:00-0400 Diastolic blood pressure 79 mm[Hg] [facility] Work Phone: [facility] 08-19-2022 14:00-0400 Heart rate 67 /min [facility] Work Phone: [facility] 08-19-2022 14:00-0400 Respiratory rate 20 /min [facility] Work Phone: [facility] 08-19-2022 14:00-0400 SaO2% (BldA) [Mass fraction] 99 % [facility] Work Phone: [facility] 08-19-2022 14:00-0400 Systolic blood pressure 139 mm[Hg] [facility] Work Phone: [facility] 08-19-2022 00:40-0400 Body height 157.48 cm [facility] Work Phone: [facility] 08-19-2022 00:40-0400 Body temperature 98.8 [degF] [facility] Work Phone: [facility] 08-19-2022 00:40-0400 Body weight 77.11 kg [facility] Work Phone: [facility] 08-18-2022 15:28-0400 Body temperature 97.8 [degF] [facility] Work Phone: [facility] 08-18-2022 15:28-0400 Diastolic blood pressure 90 mm[Hg] [facility] Work Phone: [facility] 08-18-2022 15:28-0400 Heart rate 54 /min [facility] Work Phone: [facility] 08-18-2022 15:28-0400 Respiratory rate 20 /min [facility] Work Phone: [facility] 08-18-2022 15:28-0400 SaO2% (BldA) [Mass fraction] 100 % [facility] Work Phone: [facility] 08-18-2022 15:28-0400 Systolic blood pressure 135 mm[Hg] [facility] Work Phone: [facility] 08-18-2022 12:26-0400 Body height 157.48 cm [facility] Work Phone: [facility] 08-18-2022 12:26-0400 Body weight 77.11 kg [facility] Work Phone: [facility] 06-09-2022 10:25-0400 Diastolic blood pressure 51 mm[Hg] [facility] Work Phone: [facility] 06-09-2022 10:25-0400 Heart rate 83 /min [facility] Work Phone: [facility] 06-09-2022 10:25-0400 Respiratory rate 20 /min [facility] Work Phone: [facility] 06-09-2022 10:25-0400 SaO2% (BldA) [Mass fraction] 98 % [facility] Work Phone: [facility] 06-09-2022 10:25-0400 Systolic blood pressure 92 mm[Hg] [facility] Work Phone: [facility] 06-09-2022 08:46-0400 Body height 157.48 cm [facility] Work Phone: [facility] 06-09-2022 08:46-0400 Body mass index (BMI) [Percentile] Per age and sex 96.2 % Services [facility] Work Phone: [facility] 06-09-2022 08:46-0400 Body mass index (BMI) [Ratio] 32 kg/m2 [facility] Work Phone: [facility] 06-09-2022 08:46-0400 Body temperature 97.4 [degF] [facility] Work Phone: [facility] 06-09-2022 08:46-0400 Body weight 79.37 kg [facility] Work Phone: [facility] 05-16-2022 13:52-0400 Diastolic blood pressure 96 mm[Hg] [facility] Work Phone: [facility] 05-16-2022 13:52-0400 Heart rate 66 /min [facility] Work Phone: [facility] 05-16-2022 13:52-0400 Respiratory rate 18 /min [facility] Work Phone: [facility] 05-16-2022 13:52-0400 SaO2% (BldA) [Mass fraction] 100 % Services [facility] Work Phone: [facility] 05-16-2022 13:52-0400 Systolic blood pressure 138 mm[Hg] Services [facility] Work Phone: [facility] 05-16-2022 11:54-0400 Body height 157.48 cm Services [employer] Work Phone: [facility] 05-16-2022 11:54-0400 Body mass index (BMI) [Percentile] Per age and sex 95.5 % Services [employer] Work Phone: [facility] 05-16-2022 11:54-0400 Body mass index (BMI) [Ratio] 31.1 kg/m2 Services [employer] Work Phone: [facility] 05-16-2022 11:54-0400 Body temperature 98.4 [degF] Services [employer] Work Phone: [facility] 05-16-2022 11:54-0400 Body weight 77.11 kg Services [employer] Work Phone: [facility] 05-15-2022 15:30-0400 Diastolic blood pressure 82 mm[Hg] Services [employer] Work Phone: [facility] 05-15-2022 15:30-0400 Heart rate 52 /min Services [employer] Work Phone: [facility] 05-15-2022 15:30-0400 Respiratory rate 14 /min Services [employer] Work Phone: [facility] 05-15-2022 15:30-0400 SaO2% (BldA) [Mass fraction] 99 % Services [employer] Work Phone: [facility] 05-15-2022 15:30-0400 Systolic blood pressure 134 mm[Hg] Services [employer] Work Phone: [facility] 05-15-2022 12:28-0400 Body height 157.48 cm Services [employer] Work Phone: [facility] 05-15-2022 12:28-0400 Body mass index (BMI) [Percentile] Per age and sex 95.5 % Services [employer] Work Phone: [facility] 05-15-2022 12:28-0400 Body mass index (BMI) [Ratio] 31 kg/m2 Services [facility] Work Phone: [facility] 05-15-2022 12:28-0400 Body temperature 98.1 [degF] Services [facility] Work Phone: [facility] 05-15-2022 12:28-0400 Body weight 77 kg Services [facility] Work Phone: [facility] 05-14-2022 22:56-0400 Body temperature 98.1 [degF] Services [facility] Work Phone: [facility] 05-14-2022 22:56-0400 Diastolic blood pressure 74 mm[Hg] Services [employer] Work Phone: [facility] 05-14-2022 22:56-0400 Heart rate 18 /min Services [employer] Work Phone: [facility] 05-14-2022 22:56-0400 Respiratory rate 18 /min Services [facility] Work Phone: [facility] 05-14-2022 22:56-0400 SaO2% (BldA) [Mass fraction] 94 % Services [employer] Work Phone: [facility] 05-14-2022 22:56-0400 Systolic blood pressure 137 mm[Hg] Services [employer] Work Phone: [facility] 05-14-2022 02:18-0400 Body height 157.48 cm Services [employer] Work Phone: [facility] 05-14-2022 02:18-0400 Body mass index (BMI) [Percentile] Per age and sex 95.5 % Services [employer] Work Phone: [facility] 05-14-2022 02:18-0400 Body mass index (BMI) [Ratio] 31.1 kg/m2 Services [employer] Work Phone: [facility] 05-14-2022 02:18-0400 Body temperature 97.9 [degF] Services [employer] Work Phone: [facility] 05-14-2022 02:18-0400 Body weight 77.11 kg [facility] Work Phone: [facility] 05-14-2022 02:18-0400 Diastolic blood pressure 65 mm[Hg] [facility] Work Phone: [facility] 05-14-2022 02:18-0400 Heart rate 54 /min [facility] Work Phone: [facility] 05-14-2022 02:18-0400 Respiratory rate 18 /min [facility] Work Phone: [facility] 05-14-2022 02:18-0400 SaO2% (BldA) [Mass fraction] 98 % Services [facility] Work Phone: [facility] 05-14-2022 02:18-0400 Systolic blood pressure 133 mm[Hg] [facility] Work Phone: [facility] 05-13-2022 12:09-0400 Heart rate 72 /min [facility] Work Phone: [facility] 05-13-2022 12:09-0400 Respiratory rate 18 /min [facility] Work Phone: [facility] 05-13-2022 12:09-0400 SaO2% (BldA) [Mass fraction] 98 % Services [facility] Work Phone: [facility] 05-13-2022 10:32-0400 Body height 156.21 cm [facility] Work Phone: [facility] 05-13-2022 10:32-0400 Body mass index (BMI) [Percentile] Per age and sex 95.9 % Services [facility] Work Phone: [facility] 05-13-2022 10:32-0400 Body mass index (BMI) [Ratio] 31.6 kg/m2 [facility] Work Phone: [facility] 05-13-2022 10:32-0400 Body temperature 98.1 [degF] [facility] Work Phone: [facility] 05-13-2022 10:32-0400 Body weight 77.11 kg [facility] Work Phone: [facility] 05-13-2022 10:32-0400 Diastolic blood pressure 87 mm[Hg] [facility] Work Phone: [facility] 05-13-2022 10:32-0400 Systolic blood pressure 145 mm[Hg] [facility] Work Phone: [facility] Encounters Encounter Date Encounter Type Care Provider Facility Start: 08-03-2024 End: 08-04-2024 Emergency department patient visit [facility] Work Phone: [facility] Work Phone: Start: 08-01-2024 End: 08-01-2024 Emergency department patient visit MODESTA ARCHIBALD Facility:[facility] [place] Start: 07-30-2024 End: 07-30-2024 Emergency department patient visit Cresencio Abel Facility:[facility] [place] Start: 03-18-2024 End: 03-19-2024 Emergency department patient visit [facility] Work Phone: [facility] Work Phone: Start: 03-15-2024 End: 03-15-2024 Emergency department patient visit August Beck [facility] Start: 03-13-2024 End: 03-13-2024 Emergency department patient visit Jacinto Roman [facility] Start: 07-31-2023 End: 07-31-2023 Emergency department patient visit [facility] Work Phone: [facility] Work Phone: Start: 07-14-2023 End: 07-14-2023 ambulatory Services [facility] Work Phone: [facility] Work Phone: Start: 07-14-2023 End: 07-14-2023 Patient encounter procedure [facility] Work Phone: [facility] Start: 06-16-2023 End: 06-16-2023 ambulatory Services [facility] Work Phone: [facility] Work Phone: Start: 06-16-2023 End: 06-16-2023 Patient encounter procedure Services [facility] Work Phone: [facility] Start: 06-02-2023 Postop follow up vis it related to original px Col[facility] Start: 06-02-2023 End: 06-02-2023 ambulatory Services [facility] Work Phone: [employer] Other Start: 06-02-2023 End: 06-02-2023 Patient encounter procedure Services [facility] Work Phone: [facility] Start: 05-25-2023 End: 05-25-2023 Admission to same day surgery center Services [facility] Work Phone: [facility] Start: 05-25-2023 End: 05-25-2023 ambulatory Services [facility] Work Phone: [facility] Work Phone: Start: 05-24-2023 End: 05-24-2023 ambulatory Colten Olexa Other [employer] Other Start: 05-24-2023 Telephone encounter Colten Wesleyxa [facility] Start: 05-23-2023 End: 05-23-2023 ambulatory Colten Olexa Other [employer] Other Start: 05-23-2023 Encounter for other preprocedural examination Colten Wesleyxa [facility] Start: 05-23-2023 Office outpatient ne w 45 minutes Colten SMITH [facility] Start: 03-15-2023 End: 03-15-2023 Departed Referred Services [facility] Work Phone: [facility] Start: 01-26-2023 End: 01-26-[address] DOCTOR JO Facility:H1 Start: 01-06-2023 End: 01-07-2023 Evaluation and management of inpatient Services [facility] Work Phone: [facility] Work Phone: Start: 01-06-2023 observation encounter Services [facility] Work Phone: [facility] Work Phone: Start: 01-06-2023 End: 01-07-2023 Services [facility] Work Phone: [facility] Work Phone: Start: 01-02-2023 End: 01-02-2023 Services [facility] Work Phone: [facility] Work Phone: Start: 01-01-2023 End: 01-01-2023 ambulatory IRWIN LONG . Facility:[facility]1 Start: 12-31-2022 End: 12-31-2022 Emergency department patient visit Services [facility] Work Phone: [facility] Work Phone: Start: 12-31-2022 End: 12-31-2022 Services [facility] Work Phone: [facility] Work Phone: Start: 11-09-2022 End: 11-09-2022 Emergency department patient visit Services [facility] Work Phone: [facility] Work Phone: Start: 11-09-2022 End: 11-09-2022 Services [facility] Work Phone: [facility] Start: 11-07-2022 End: 11-07-2022 Emergency department patient visit [facility] Work Phone: [facility] Work Phone: Start: 11-07-2022 End: 11-07-2022 [facility] Work Phone: [facility]Emer[facility] Start: 11-02-2022 End: 11-02-2022 Emergency department patient visit [facility] Work Phone: [facility] Work Phone: Start: 11-02-2022 End: 11-02-2022 [facility] Work Phone: [facility] Start: 10-31-2022 End: 10-31-2022 Emergency department patient visit [facility] Work Phone: [facility] Work Phone: Start: 10-31-2022 End: 10-31-2022 [facility] Work Phone: [facility]Emer[facility] Start: 10-29-2022 End: 10-29-2022 Emergency department patient visit [facility] Work Phone: [facility] Start: 10-29-2022 End: 10-29-2022 [facility] Work Phone: [facility] Start: 08-27-2022 End: 08-27-2022 Departed Referred Services [facility] Work Phone: [facility] Start: 08-27-2022 End: 08-27-2022 [facility] Work Phone: [facility] Start: 08-20-2022 End: 08-22-2022 Evaluation and management of inpatient Services [facility] Work Phone: [facility] Start: 08-20-2022 End: 08-22-2022 [facility] Work Phone: [facility] Start: 08-19-2022 End: 08-20-2022 Emergency department patient visit Services [facility] Work Phone: [facility] Start: 08-19-2022 End: 08-20-2022 [facility] Work Phone: [facility] Start: 08-19-2022 End: 08-19-2022 Emergency department patient visit Services [facility] Work Phone: [facility] Start: 08-19-2022 End: 08-19-2022 [facility] Work Phone: [facility] Start: 08-18-2022 End: 08-18-2022 Emergency department patient visit Services [facility] Work Phone: [facility] Start: 08-18-2022 End: 08-18-2022 [facility] Work Phone: [facility] Start: 06-25-2022 End: 06-25-2022 Departed Referred Services [facility] Work Phone: [facility] Start: 06-09-2022 End: 06-09-2022 Admission to same day surgery center Services [facility] Work Phone: [facility] Start: 06-07-2022 End: 06-07-2022 Patient encounter procedure Services [facility] Work Phone: [facility]-Pre-Surgical Testing Start: 05-26-2022 End: 05-26-2022 Departed Referred Services [facility] Work Phone: [facility] Start: 05-16-2022 ambulatory Luana Mak RN NURSE [employer] Comment on above: Abdominal Pain Start: 05-16-2022 End: 05-16-2022 Emergency department patient visit Services [facility] Work Phone: [facility] Start: 05-15-2022 End: 05-15-2022 Emergency department patient visit [facility] Work Phone: [facility] Start: 05-14-2022 End: 05-14-2022 Emergency department patient visit Services [facility] Work Phone: [facility] Start: 05-14-2022 End: 05-14-2022 Emergency department patient visit Services [facility] Work Phone: [facility] Start: 05-13-2022 End: 05-13-2022 Emergency department patient visit Services [facility] Work Phone: [facility] Start: 06-23-2018 Evaluation and manag [...] 08-25-2017 Patient encounter DALI B SPLAWSKI Fa cility:[facility] Start: 08-09-2017 End: 08-24-2017 Evaluation and management of inpatient AIMEE ALEMAN Facility:[facility] Procedures Date Procedure Procedure Detail Performing Clinician Start: 07-14-2023 X-ray of right knee Services [facility] Work Phone: Start: 06-16-2023 X-ray of right knee Services [facility] Work Phone: Start: 06-02-2023 X-ray of right knee Services elicit Phone: Start: 05-25-2023 Arthroscopy of knee Services elicit Phone: Start: 03-15-2023 Respiratory Panel (PCR) Services [facility] Work Phone: Start: 01-06-2023 Computed tomography of abdomen and pelvis with contrast Services [facility] [employer] Phone: Start: 01-06-2023 Plain chest X-ray Services [facility] [employer] Phone: Start: 01-06-2023 Pelvis X-ray Services [facility] [employer] Phone: Start: 01-02-2023 Urine culture Services [facility] [employer] Phone: Start: 12-31-2022 Influenza A and B virus antigen assay Services [facility] [employer] Phone: Start: 12-31-2022 Urine culture Services [facility] [employer] Phone: Start: 11-02-2022 Urine culture Services [facility] [employer] Phone: Start: 10-31-2022 Urine culture Services [facility] [employer] Phone: Start: 08-19-2022 Computed tomography of abdomen and pelvis with contrast Services elicit Phone: Start: 06-09-2022 Esophagogastroduodenoscopy Services [facility] Work Phone: Start: 05-16-2022 Computed tomography of abdomen and pelvis with contrast Services [facility] Work Phone: Start: 08-21-2017 Introduction of Nutritional [...] [facility] Work Phone: Services [facility] Work Phone: Plan of Treatment Date Care Activity Detail Author Start: 08-03-2024 [facility] Start: 03-18-2024 [facility] Start: 05-25-2023 [facility] Start: 05-25-2023 [facility] Start: 01-08-2023 Blood chemistry [facility] Start: 01-08-2023 [facility] Start: 01-07-2023 Blood chemistry [facility] Start: 01-07-2023 End: 01-07-2023 [facility] Start: 01-06-2023 Patient referral to dietitian [facility] Start: 01-06-2023 Hospital admission [facility] Start: 01-06-2023 [facility] Start: 01-06-2023 Computed tomography of abdomen and pelvis with contrast [facility] Start: 01-06-2023 CT Abdomen and Pelvis W contrast IV [facility] Start: 01-06-2023 End: 01-06-2023 [facility] Start: 01-06-2023 Urine culture [facility] Start: 12-31-2022 End: 12-31-2022 [facility] Start: 11-09-2022 [facility] Start: 10-29-2022 [facility] Start: 08-22-2022 [facility] Start: 08-22-2022 [facility] Work Phone: Start: 08-20-2022 Hospital admission [facility] Start: 08-20-2022 [facility] Work Phone: Start: 08-20-2022 [facility] Work Phone: Start: 08-19-2022 Computed tomography of abdomen and pelvis with contrast CT abdomen pelvis w con [facility] Start: 08-19-2022 CT Abdomen and Pelvis W contrast IV [facility] Work Phone: Start: 08-19-2022 [facility] Work Phone: Start: 07-29-2022 Influenza vaccination INFLUENZA (Season Ended) [facility] Start: 06-09-2022 [facility] Work Phone: Start: 2022 CHLAMYDIA SCREENING (18-24) CHLAMYDIA SCREENING (18-24) [facility] Start: 2022 GC (GONORRHEA) SCREENING (18-24) GC (GONORRHEA) SCREENING (18-24) [facility] Start: 2022 HEPATITIS C SCREENING HEPATITIS C SCREENING [facility] Start: 2022 HIV SCREENING HIV SCREENING [facility] Start: 2020 MENINGOCOCCAL CONJUGATE (1 - 2-dose series) MENINGOCOCCAL CONJUGATE (1 - 2-dose series) [facility] Start: 2018 PEDS TO ADULT TRANSITION ANNUAL ASSESSMENT PEDS TO ADULT TRANSITION ANNUAL ASSESSMENT [facility] Start: 2016 Adult depression screening assessment DEPRESSION SCREENING [facility] Start: 2016 PEDS TO ADULT TRANSITION INITIAL DISCUSSION PEDS TO ADULT TRANSITION INITIAL DISCUSSION [facility] Start: 2015 HPV VACCINE (1 - 2-dose series) HPV VACCINE (1 - 2-dose series) [facility] Start: 2014 MENINGOCOCCAL B: Consider based on risk (1 of 2 - Risk Bexsero 2-dose series) MENINGOCOCCAL B: Consider based on risk (1 of 2 - Risk Bexsero 2-dose series) [facility] Start: 2011 Urine microalbumin profile DTAP,TDAP,TD (1 - Tdap) [facility] Start: 2009 COVID-19 VACCINE (#1) [facility] Amphetamines [Presen ce] in Urine [facility] Work Phone: Bacteria identified in Blood by Culture [facility] Bacteria identified in Urine by Culture [facility] Bacteria identified in Urine by Culture [facility] Barbiturates [Presen ce] in Urine [facility] Work Phone: Basophils [#/volume] in Blood by Automated count [facility] Basophils/100 leukoc ytes in Blood by Automated count [facility] Benzodiazepines [Pre sence] in Urine [facility] Work Phone: Bilirubin measurement, urine [facility] Work Phone: Cannabinoids [Presen ce] in Urine by Screen method [facility] Work Phone: Choriogonadotropin ( test) [Presence] in Urine [facility] Work Phone: Cocaine [Presence] in Urine [facility] Work Phone: Color of Urine [facility] Work Phone: Detection of hemoglobin [facility] Work Phone: Eosinophils/100 leuk ocytes in Blood by Automated count [facility] Erythrocyte distribu tion width [Ratio] by Automated count [facility] Erythrocytes [#/volu me] in Blood [facility] Glucose [Mass/volume ] in Urine by Test strip [facility] Work Phone: Hematocrit [Volume F raction] of Blood [facility] Hemoglobin [Mass/vol ume] in Blood [facility] Homogenous nuclear A b pattern [Titer] in Serum [facility] Work Phone: Leukocytes [#/volume ] corrected for nucleated erythrocytes in Blood by Automated coun [facility] Leukocytes [#/volume ] in Blood [facility] Lymphocytes [#/volum e] in Blood by Automated count [facility] Lymphocytes/100 leuk ocytes in Blood by Automated count [facility] MCH [Entitic mass] b y Automated count [facility] MCHC [Mass/volume] b y Automated count [facility] MCV [Entitic volume] by Automated count [facility] Measurement of keton es in urine using dipstick [facility] Work Phone: Monocytes [#/volume] in Blood by Automated count [facility] Monocytes/100 leukoc ytes in Blood by Automated count [facility] Neutrophils [#/volum e] in Blood by Automated count [facility] Neutrophils/100 leuk ocytes in Blood by Automated count [facility] Nuclear Ab [Titer] in Serum [facility] Work Phone: Nucleated erythrocyt es [Presence] in Blood by Automated count [facility] Patient Education [facility] Work Phone: Patient referral [facility] Work Phone: Phencyclidine [Prese nce] in Urine [facility] Work Phone: Platelet mean volume [Entitic volume] in Blood by Automated count [facility] Platelets [#/volume] in Blood [facility] Protein measurement, urine [facility] Work Phone: SARS-CoV-2 (COVID-19 ) N gene [Presence] in Respiratory specimen by JANAK with probe detection [facility] Work Phone: Urinalysis, specific gravity measurement [facility] Work Phone: Urine culture Urine Culture [facility] Urine culture [facility] Urine dipstick for nitrite [facility] Work Phone: Urine dipstick for s pecific gravity [facility] Work Phone: Urine pH test [facility] Work Phone: Urobilinogen concent ration, test strip measurement [facility] Work Phone: [facility] Immunizations Immunization Date Immunization Notes Care Provider Susan jasslyn 01-17-2018 tetanus toxoid, redu yoni diphtheria toxoid, and acellular pertussis vaccine, adsorbed Services [facility] Work Phone: [facility] 01-07-2017 Human Papillomavirus 9-valent vaccine Colten Olexa Other [employer] [facility] [employer] Other 01-07-2017 HPV, unspecified formulation Services [facility] Work Phone: [facility] 09-06-2016 influenza, injectabl e, quadrivalent, preservative free Colten Olexa Other [facility] 09-06-2016 Human Papillomavirus 9-valent vaccine Colten Olexa Other [facility] [employer] Other 09-06-2016 HPV, unspecified formulation Services [facility] Work Phone: [facility] 07-01-2016 human papilloma viru s vaccine, quadrivalent Colten Olexa Other [facility] 07-01-2016 meningococcal polysaccharide (groups A, C, Y and W-135) diphtheria toxoid conjugate vaccine (MCV4P) Colten Olexa Other [facility] 07-01-2016 tetanus toxoid, redu yoni diphtheria toxoid, and acellular pertussis vaccine, adsorbed Colten Olexa Other [facility] 09-01-2015 influenza, injectabl e, quadrivalent, preservative free Colten Olexa Other [facility] 08-19-2014 influenza, injectabl e, quadrivalent, contains preservative Services [facility] Work Phone: [facility] 08-19-2014 influenza, injectabl e, quadrivalent, preservative free Colten Olexa Other [facility] [employer] Other 08-17-2013 influenza, seasonal, injectable, preservative free Colten Miller Other [facility] Payers Date Payer Category Payer Self-pay 2019 Medicaid [employer] [id number] 2019-Present [phone] [address] [place] [address] Medicaid [id number] 2004 Unknown [id number] 2004 Unknown [id number] 2004 Unknown [id number] 2004 Unknown [id number] 2004 Unknown [id number] 2004 Unknown [id number] 1969 Unknown [id number] 1969 Unknown [id number] 1959 Medicaid [id number] Medicaid [id number] Medicaid [id number] Unknown [id number] Unknown [id number] Unknown [id number] Unknown [id number] Unknown [id number] Social History Date Type Detail Facility Start: 10-09-2021 End: 03-13-2024 Tobacco smoking status [facility] Never smoked tobacco [facility] Start: 10-09-2021 Tobacco use and exposure Smokeless tobacco non-user [facility] Start: 10-09-2021 Alcohol intake Lifetime non-d isael (finding) [facility] Start: 10-09-2021 History SDOH Alcohol Frequency 1 [facility] Start: 2004 Sex Assigned At Not on file [facility] Start: 06-09-2022 End: 08-03-2024 Tobacco smoking status [facility] Smoker (finding) [facility] Start: 2004 Sex Assigned At Female F [facility] Start: 08-18-2022 End: 05-25-2023 Tobacco smoking status [facility] Current some day smoker [facility] Start: 01-06-2023 Tobacco smoking status [facility] Ex-smoker (finding) [facility] Sex Assigned At [facility] Tobacco smoking status Never [facility] NEGATED: Highlighted row [facility] Medical Equipment Procedure Code Equipment Code Equipment Origin al Text Equipment Identifier Dates Arthroscopy, knee Tendon/ligamen t bone anchor, non-bioabsorbable [id number] FDA Start: 05-25-2023 Arthroscopy, knee Soft-tissue/me sh anchor, non-bioabsorbable [id number] FDA Start: 05-25-2023 Arthroscopy, knee Tendon/ligamen t bone anchor, bioabsorbable [id number] FDA Start: 05-25-2023 Goals Date Patient Goal Desired Activity /State Functional Status Date Assessment Result Facility 07-30-2024 Functional Status N/A [facility] 03-15-2024 Functional Status N/A [facility] 03-13-2024 Functional Status N/A [facility] 01-07-2023 Functional status Patient at Baseline [facility] Work Phone: 01-06-2023 Functional status Patient at Baseline [facility] Work Phone: 08-22-2022 Functional status Patient at Baseline [facility] Work Phone: Mental Status Date Assessment Result Facility 01-07-2023 Cognitive function Patient at Baseline [facility] Work Phone: 01-06-2023 Cognitive function Patient at Baseline [facility] Work Phone: 08-22-2022 Cognitive function Patient at Baseline [facility] Work Phone: Clinical Notes 09-28-2015 [...] such as yogurt. General instructions ? Take jqba-wqg-lrdranr and prescription medicines only as told by [...] provider. Document Revised: 07/29/2022 Document Reviewed: 07/29/2022 [employer] Patient Education ? 2023 [employer]. Nausea and Vomiting, Adult Nausea is the [...] has water adde (more content not included)... [facility] 07-31-2024 Hospital Discharg e instructions Patient Education [...] water added (diluted fruit juice). Eat bland, nqeg-pj-ilvnwg foods in small amounts as you are able. These foods include bananas, applesauce, rice, lean meats, toast, and crackers. Avoid fluids that contain a lot of sugar or caffeine, such as energy drinks, sports drinks, and soda. Avoid alcohol. Avoid spicy or fatty foods. General instructions Take lzjw-wue-ymtuowo and prescription medicines only as told by your health care provider. Drink enough fluid to keep your urine pale yellow. Wash your hands often using soap and water for at least 20 seconds. If soap and water are not available, use hand office machinery or equipment installer. Make sure that everyone in your household [...] eating and drinking to prevent dehydration. Take siil-kni-nxutmth and prescription medicines only as told by [...] provider. Document Revised: 05/21/2022 Document Reviewed: 05/21/2022 [employer] Patient Education 2023 Triggit. Follow Up Care 07/30/2024 19:27:35 With:FAMILIA CHAND Address: [facility] [place] [address] [address]- Business (1) When:08/02/2024 [facility] 07-30-2024 Note ED Patient Education Note Gastroenterology [...] added (diluted fruit juice). ? Eat bland, imlq-sw-nkutpt foods in small amounts as you are able. These foods include bananas, applesauce, rice, lean meats, toast, and crackers. ? Avoid fluids that contain a lot of sugar or caffeine, such as energy drinks, sports drinks, and soda. ? Avoid alcohol. ? Avoid spicy or fatty foods. General instructions ? Take xkac-ohq-uepntqi and prescription medicines only as told by your health care provider. ? Drink enough fluid to keep your urine pale yellow. ? Wash your hands often using soap and water for at least 20 seconds. If soap and water are not available, use hand office machinery or equipment installer. ? Make sure that everyone in your [...] and drinking to prevent dehydration. ? Take elen-gdt-objdyxr and prescription medicines only as told by [...] provider. Document Revised: 05/21/2022 Document Reviewed: 05/21/2022 [employer] Patient Education ? 2023 Triggit. [facility] 07-30-2024 Evaluation + Plan note Extrac venkata [...] Nausea/Vomiting, # 16 tab(s), Refills(s) 0, [id number], 157, cm, 07/30/24 19:37:00 EDT, Height/Length Dosing, 96.1, kg, 07/30/24 19:37:00 EDT, Weight Dosing promethazine, 12.5 mg = 1 tab(s), Oral, q8hr, PRN as needed for nausea/vomiting, second line, # 10 tab(s), Refills(s) 0, [id number], 157, cm, 07/30/24 19:37:00 EDT, Height/Length Dosing, 96.1, kg, 07/30/24 19:37:00 EDT, Weight Dosing promethazine, 12.5 mg = 1 supp, Rectal, q8hr, PRN as needed for nausea/vomiting, 3rd line, # 6 EA, Refills(s) 0, [id number], 157, cm, 07/30/24 19:37:00 EDT, [...] Lipase Level Magnesium Level Saline Lock Insert [facility] 04-18-2024 Hospital Discharge instructions Patient Education 03/15/2024 [...] careprovider. Do not use recreational drugs. Take uwbb-ttw-oxevvjd and prescription medicines only as told by [...] provider. Document Revised: 06/08/2022 Document Reviewed: 06/08/2022 [employer] Patient Education 2022 Triggit. 03/15/2024 13:49:41 Nausea and Vomiting, Adult Nausea [...] water added (diluted fruit juice). Eat bland, ctzy-gv-oqydex foods in small amounts as you are able. These foods include bananas, applesauce, rice, lean meats, toast, and crackers. Avoid fluids that contain a lot of sugar or caffeine, such as energy drinks, sports drinks, and soda. Avoid alcohol. Avoid spicy or fatty foods. General instructions Take ziex-pxn-bdzovfv and prescription medicines only as told by your health care provider. Drink enough fluid to keep your urine pale yellow. Wash your hands often using soap and water for at least 20 seconds. If soap and water are not available, use hand office machinery or equipment installer. Make sure that everyone in your household [...] eating and drinking to prevent dehydration. Take jwkz-jdl-zlvcmdc and prescription medicines only as told by [...] provider. Document Revised: 05/21/2022 Document Reviewed: 05/21/2022 [employer] Patient Education 2022 Triggit. Follow Up Care 03/15/2024 10:34:05 With:Kirk Serrano Address:Unknown When:03/22/2024 13:33:04 Comments:Make sure to follow-up with Dr. Serrano at the surgery clinic in 1 week as instructed. Return to the emergency room if you develop chest pain, shortness of breath or any symptoms. [facility]04-18-2024 Evaluation + Plan noteExtracted from: Title:ED Note [...] CT Chest w/ Contrast eGFR Magnesium Level [facility]04-17-2024 Hospital Discharge instructions Patient Education 03/13/2024 22:27:59 Nausea and Vomiting, Adult, Idam-gr-Gmcn Nausea and Vomiting, Adult Nausea is feeling [...] fruit juice). ?Low-calorie sports drinks. Eat bland, ktii-og-aqhwpa foods in small amounts as you are able, such as: ?Bananas. ?Applesauce. ?Rice. ?Low-fat (lean) meats. ?[place]. ?Crackers. Avoid drinking fluids that have a lot of sugar or caffeine in them. This includes energy drinks, sports drinks, and soda. Avoid alcohol. Avoid spicy or fatty foods. General instructions Take ynab-mlo-jwelhdl and prescription medicines only as told by your doctor. Drink enough fluid to keep your pee (urine) pale yellow. Wash your hands often with soap and water for at least 20 seconds. If you cannot use soap and water, use hand office machinery or equipment installer. Make sure that everyone in your home [...] your doctor about eating and drinking. Take frrj-naw-nvyvhxb and prescription medicines only as told by your doctor. Contact your doctor if your symptoms get worse or you have new symptoms. Keep all follow-up visits. This information is not intended to replace advice given to you by your health care provider. Make sure you discuss any questions you have with your health care provider. Document Revised: 05/21/2022 Document Reviewed: 05/21/2022 [employer] Patient Education 2022 Triggit. 03/13/2024 22:27:59 Muscle Strain, Unuu-fr-Xqxi Muscle Strain A muscle strain, or pulled [...] is not too tight. General instructions Take yvfo-jup-ihwjgub and prescription medicines only as told by [...] provider. Document Revised: 02/01/2022 Document Reviewed: 02/01/2022 FINXI Patient Education 2022 Triggit. Follow Up Care 03/13/2024 17:33:30 With:MODESTA ARCHIBALD Address: [address] [place] [address] [phone] Business (1) When:03/16/2024 Comments:You can use the medications as prescribed as needed for pain, nausea. Please follow-up with your primary care doctor for further evaluation and management. Please return to the ED if you develop chest pain, difficulty breathing or if any concerning signs or symptoms. [facility]04-16-2024 Evaluation + Plan noteExtracted from: Title:ED Note [...] day(s), # 9 tab(s), Refills(s) 0, [id number], 160, cm, 03/13/24 17:38:00 EDT, Height/Length Dosing, 95.5, kg, 03/13/24 17:38:00 EDT, Weight Dosing morphine, 4 mg = 1 mL, Injection, IV Push, Once, Stop date 03/13/24 19:50:00 EDT, STAT, Start date 03/13/24 19:50:00 EDT, 03/13/24 19:50:00 EDT naproxen, 500 mg = 1 tab(s), Oral, BID, PRN for pain, # 20 tab(s), Refills(s) 0, [id number], 160, cm, 03/13/24 17:38:00 EDT, Height/Length Dosing, 95.5, kg, 03/13/24 17:38:00 EDT, Weight Dosing orphenadrine, 60 mg = 2 mL, Injection, IV Push, Once, Stop date 03/13/24 20:27:00 EDT, STAT, Start date 03/13/24 20:27:00 EDT, 03/13/24 20:27:00 EDT promethazine, 25 mg = 1 supp, Rectal, q6hr, PRN Nausea/Vomiting, # 6 EA, Refills(s) 0, Pharmacy: [facility]/pharmacy #[id number], 160, cm, 03/13/24 17:38:00 EDT, [...] kg, 2.06, m2 XR Chest 2 Views [facility]07-06-2023 Evaluation note* Encounter Date Diagnosis Assessment Notes [...] Other specified postprocedural states (ICD-10 - Z98.890) [employer] Other 06-27-2023 Evaluation note* Encounter Date Diagnosis Assessment Notes Treatment Notes Treatment Clinical Notes Apr, Other specified postprocedural states (ICD-10 - Z98.890) [employer] Other 06-26-2023 Evaluation note* Encounter Date Diagnosis [...] pain for many months and potentially cause correction pain and stiffness. We have discussed the many potential complications of surgery including respiratory, cardiac, and patient positioning during anesthesia. The risks of DVT, scarring, long chain beamer pain, non union, hardware failure, development of [...] S82.111A) Apr, Pre-op exam (ICD-10 - Z01.818) [employer] Other 02-10-2023 History and physical note Author Eliana Bautista [facility] January 07, 2023 2:11am Note Date/Time January 06, 2023 5 :30pm [facility] [address] [place] [address] Hospitalist H&P Signed Patient: Pili Parikh MR#: [id number] : 2005 Acct:[id number] Age/Sex: 17 / F Adm Date: 3 Loc: Room: [address] [place] [address] Type: ADM INO Attending Dr: Eliana Bautista MD Copies to: [facility] FRANKY Starkey MD~ HPI DATE OF [...] unless noted in the HPI or below [facility] Attestation Statement: The following information was validated [...] promethazine 25 mg rectal suppository 25 mg DC Q6H PRN Nausea #10 supp 01/02/23 [Rx [...] % (Auto) 19.9 % (.) 01/06/23 14:20 Polk % (Auto) 7.4 % (.) 01/06/23 14:20 Eos % (Auto) 2.3 % (.) 01/06/23 14:20 Baso % (Auto) 0.3 % (.) 01/06/23 14:20 Nucleat RBC Rel Count 0.1 /100 WBC (0-0.5) 01/06/23 14:20 Neut # (Auto) 12.4 x10E3/uL (1.2-7.7) H 01/06/23 14:20 Lymph # (Auto) 3.5 x10E3/uL (1.20-4.8) 01/06/23 14:20 Polk # (Auto) 1.3 x10E3/uL (0.1-1.00) H 01/06/23 [...] pH 6.5 (5.0-9.0) 01/06/23 16:10 Ur Specific [place] 1.027 (1.001-1.030) 01/06/23 16:10 Urine Protein 100 [...] MD Documented By: Anette Stout APRN 01/06/23 1657 Signed By: <Electronically signed by FRANKY Stout> 01/06/23 1817 <Electronically signed by Eliana Bautista MD> 01/07/23 0211 [facility] Work Phone: 1(281) 533-525109-24-2022 Progress note Author Gregorio Carey [facility] August 21, 2022 5:01pm Note Date/Time August 21, 2022 5:01pm [facility] [address] [place] [address] Hospitalist Progress Note Signed Patient: Pili Parikh MR#: [id number] : 2005 Acct:[id number] Age/Sex: 17 / F Adm Date: 2 Loc: Room: 9S5016-3 Type: ADM IN Attending Dr: Gregorio Carey [...] alot of discomfort. She recalls that the manager of medical told her that in warm water against [...] 1 Gm/10 Ml Udc PO 08/22/23 06:59 TID.AC.[facility] A&P - Hospitalist Assessment/Plan (1) Intractable [...] signed by Gregorio Carey DO> 08/21/22 1701 [facility] Work Phone: 1(613) 345-480909-23-2022 History and physical note Author Gregorio Carey [facility] August 20, 2022 8:17pm Note Date/Time August 20, 2022 8:17pm [facility] [address] [place] [address] Hospitalist H&P Signed Patient: Pili Parikh MR#: [id number] : 2005 Acct:[id number] Age/Sex: 17 / F Adm Date: 2 Loc: Room: 0B3589-5 Type: ADM IN Attending Dr: Gregorio Carey DO Copies to: [facility] Senior Gregorio Carey, ~ HPI DATE [...] % (Auto) 11.5 % (.) 08/20/22 16: Polk % (Auto) 3.7 % (.) 08/20/22 16:21 Eos % (Auto) 0.3 % (.) 08/20/22 16: Baso % (Auto) 0.4 % (.) 08/20/22 16:21 Neut # (Auto) 9.2 x10E3/uL (1.2-7.7) H 08/20/22 16:21 Lymph # (Auto) 1.3 x10E3/uL (1.20-4.8) 08/20/22 16:21 Polk # (Auto) 0.4 x10E3/uL (0.1-1.00) 08/20/22 16:21 [...] <Electronically signed by Gregorio Carey DO> 08/20/222016 [facility] Work Phone: 1(926) 340-535906-19-2022 Miscellaneous Notes* Telephone Encounter - Luana Mak [...] if she can find a way to [facility], she will go there. Reason for Disposition Chest pain [1] Chest pain lasts > 5 minutes AND [2] described as crushing, pressure-like, or heavy Protocols used: ABDOMINAL PAIN - [id number], CHEST AZAS-YWFZV-SS documented [facility]21 NoteHNO ID: [id number] Author: Rolando Wooten MD Service: ? Author [...] completed when applicable. PROCEDURE NOTE: IANDD right ASSISTED LIVING COORDINATOR Risks, benefits, personnel and alternatives were explained. The patient wished to proceed. S/he was re-identified and a time out obtained. PROCEDURE drainage right ASSISTED LIVING COORDINATOR PREOPERATIVE DIAGNOSIS: right peritonsillar abscess POSTOPERATIVE DIAGNOSIS tonsillitis without pus in right peritonsillar area INDICATIONS: chronic right throat pain, worsening, concern for right ASSISTED LIVING COORDINATOR at outside facility on scan . Drainage [...] there were no complication. MD Rolando Cherry, [facility]11-12-2021 NoteHNO ID: [id number] Author: Rolando Wooten MD Service: ? Author Type: Physician Type: Progress Notes Filed: 11/13/2021 1:09 AM Note Text: [facility] Consult This consult was requested by [...] tonsillitis. 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 Medical History intermittent asthma Medical History lactose intolerance Medical History POTS diag 09/2015 Surgical History appendectomy 2018 Hospitalization History strepthroat, uri, dehydr ation, otitis media 2004 Hospitalization History dehydtation 2006 Hospitalization History [facility] [place]iti ng 09/12- Hospitalization History 3 days vomitting blood 0 01/2017 Hospitalization History vomiting, abd pain, dehy dration [facility] 07/22-07/27/2017 Hospitalization History RBC 08/14 [employer] Other Evaluation noteNo assessment information available [facility] Work Phone: Evaluation note* Diagnosis Onset Date Resolution Status Nausea & vomiting acute [facility] Work Phone: Evaluation note* Diagnosis Onset Date Resolution Status Dehydration acute Hypokalemia acute Intractable nausea and vomiting acute Nausea & vomiting acute [facility] Work Phone: Evaluation note* Diagnosis Onset Date Resolution Status Abdominal pain acute Acute hypokalemia acute Chest pain acute Dehydration acute Hypokalemia acute Hypovolemia acute Beverley-Cotton tear acute Nausea & vomiting acute [facility] Work Phone: History and physical note Author Eliana Bautista [facility] January 07, 2023 2:11am Note Date/Time January 06, 2023 5 :30pm [facility] [address] [place] [address] Hospitalist H&P Signed Patient: Pili Parikh MR#: [id number] : 2005 Acct:[id number] Age/Sex: 17 / F Adm Date: 3 Loc: Room: [address] [place] [address] Type: ADM INOo Attending Dr: Eliana Bautista MD Copies to: [facility] FRANKY Starkey MD~ HPI DATE OF [...] unless noted in the HPI or below [facility] Attestation Statement: The following information was [...] promethazine 25 mg rectal suppository 25 mg DC Q6H PRN Nausea #10 supp 01/02/23 [Rx [...] % (Auto) 19.9 % (.) 01/06/23 14:20 Polk % (Auto) 7.4 % (.) 01/06/23 14:20 Eos % (Auto) 2.3 % (.) 01/06/23 14:20 Baso % (Auto) 0.3 % (.) 01/06/23 14:20 Nucleat RBC Rel Count 0.1 /100 WBC (0-0.5) 01/06/23 14:20 Neut # (Auto) 12.4 x10E3/uL (1.2-7.7) H 01/06/23 14:20 Lymph # (Auto) 3.5 x10E3/uL (1.20-4.8) 01/06/23 14:20 Polk # (Auto) 1.3 x10E3/uL (0.1-1.00) H 01/06/23 [...] pH 6.5 (5.0-9.0) 01/06/23 16:10 Ur Specific [place] 1.027 (1.001-1.030) 01/06/23 16:10 Urine Protein 100 [...] signed by Eliana Bautista MD> 01/07/23 0211 [facility] Work Phone: Hospital course Narrative No data available for this section [facility] Work Phone: Hospital Discharge instructions Additional Instructions Follow-up with your primary care doctor Return to ED if develop worsening symptoms or concernsR[facility] Work Phone: Hospital Discharge instructions Additional Instructions Follow-up with your primary care doctor Return to the ED if you develop worsening symptoms or concernsR[facility] Work Phone: Hospital Discharge instructions Additional Instructions Take Phenergan as prescribed for nausea vomiting. Take Motrin and Tylenol as needed for muscle aches and pains. Take Carafate as prescribed.[facility] Work Phone: Hospital Discharge instructions Additional Instructions [...] you should first call your surgeon at [phone] for advice. If your are unable to contact your surgeon, seek help from a hospital emergency room. [facility] Work Phone: Hospital Discharge instructions Additional Instructions [...] with your family physician as soon as possible.[facility] Work Phone: Progress note No data available for this section [facility] Summary Purpose Family History No Family History [...] section and content) DATE CREATED AUTHOR 06/05/2018 [facility] DATE CREATED AUTHOR AUTHOR'S ORGANIZ ATION 07/14/2018 [facility] DATE CREATED AUTHOR AUTHOR'S ORGANIZ ATION 01/04/2022 [facility] DATE CREATED AUTHOR AUTHOR'S ORGANIZ ATION 02/02/2023 [facility] DATE CREATED AUTHOR AUTHOR'S ORGANIZ ATION 07/30/2024 [facility] DATE CREATED AUTHOR AUTHOR'S ORGANIZ ATION 08/02/2024 [facility] DATE CREATED AUTHOR AUTHOR'S ORGANIZ ATION 08/05/2024 [facility] DATE CREATED AUTHOR AUTHOR'S ORGANIZ ATION 08/06/2024 [facility] DATE CREATED AUTHOR AUTHOR'S ORGANIZ ATION 08/19/2024 [facility] Source Comments (unrecognize d section and content) In the event this informatio n is protected by the Federal Confidentiality of Alcohol and Drug Abuse Patient Records regulations: The Federal rules restrict any use of the information to criminally investigate or prosecute any alcohol or drug abuse patient.[facility] Reason for Visit (unrecogniz ed section and content) Reason Comments Abdominal Pain Care Teams (unrecognized sec tion and content) Team Status: Inactive Member Role Status Dates Services [facility] Primary Care Provider Ac tive Modesta Chand NP-C Attending Provide r Active Team Status: Inactive Member Role Status Dates Services [facility] Primary Care Provider Active Modesta Chand NP-[place]in[place] Attending Provide r Active Team Status: Inactive Member Role Status Dates Services [facility] Primary Care Provider Active Brennen Britt MD Attending Provider Active Team Status: Inactive Member Role Status Dates Services [facility] Primary Care Provider Active Art Bianchi DO Emergency Provider Active Team Status: Inactive Member Role Status Dates Services [facility] Primary Care Provider Active Ravi Arguello DO Emergency Provider Active Team Status: Inactive Member Role Status Dates Services [facility] Primary Care Provider Active Ender Donovan DO Emergency Provider Active Team Status: Inactive Member Role Status Dates Services [facility] Primary Care Provider Active Gilson Castro DO Emergency Provider Active Team Status: Active Member Role Status Dates Services [facility] Primary Care Provider Ac tive Team Status: Inactive Member Role Status Dates Services [facility] Primary Care Provider Ac latesha Rivera APRN Emergency Provider Active Team Status: Inactive Member Role Status Dates Services [facility] Primary Care Provider Ac lulve Colten Fry Jr, MD Emergency Provider Active Team Status: Inactive Member Role Status Dates Services [facility] Primary Care Provider Ac latesha Castro DO Emergency Provider Active Team Status: Active Member Role Status Dates Services [facility] Primary Care Provider Ac latesha Castro DO Emergency Provider Active Gregorio Carey , DO Admit Provider, Attending Pr ovidpierce Active Team Status: Inactive Member Role Status Dates Services [facility] Primary Care Provider Ac latesha Castro DO Emergency Provider Active Gregorio Carey , DO Admit Provider, Attending Pr ovider Active Team Status: Inactive Member Role Status Dates Services [facility] Primary Care Provider Ac tive Ravi Jayy Arguello , DO Emergency Provider Active Team Status: Inactive Member Role Status Dates Art Hope Tash , DO Emergency Provider Active Services [facility] Primary Care Provider Ac tive Team Status: Inactive Member Role Status Dates Services [facility] Primary Care Provider Ac tive Robert Henley , DO Emergency Provider Active Team Status: Inactive Member Role Status Dates Services [facility] Primary Care Provider Ac tive Art Bianchi , DO Emergency Provider Active Team Status: Inactive Member Role Status Dates Services [facility] Primary Care Provider Active Corey Newberry MD Emergency Provider Active Team Status: Active Member Role Status Dates Services [facility] Primary Care Provider Active Team Status: Inactive Member Role Status [facility] Services [facility] Primary Care Provider Active Federico Randolph , DO Emergency Provider Active Team Status: Active Member Role Status Dates Services [facility] Primary Care Provider Active Rd Brown PA-C Emergency Provider Active Eliana Bautista MD Admit Provider, Attending Provider Active Team Status: Inactive Member Role Status Dates Services [facility] Primary Care Provider Active Rd Brown PA-C Emergency Provider Active Eliana Bautista MD Admit Provider, Attending Provider Active Team Status: Inactive Member Role Status Dates Services [facility] Primary Care Provider Active Colten Miller MD Attending Provider Active Team Status: Inactive Member Role Status Dates [facility] Primary Care Provider Active Start: March 18, 2024 End: March 19, 2024 Jacinto Benitez MD Emergency Provider Active Star t: March 18, 2024 End: March 19, 2024 Team Status: Inactive Member Role Status Dates Services [facility] Primary Care Provider Active Start: August 03, [...] BE BASED ON THE PRIMARY CLINICAL RECORDS. [employer] [facility]. provides no warranty or guarantee of the accuracy or completeness of information in this document.
[2024-10-26 11:26] VITALS: BP 133/92; PULSE 57; TEMP 37; O2SAT 100; BMI 36.6
--- NOTE | 2024-10-26 11:35 | CT_ITS ---
[address] [address] Patient Name: PILI SEGURA MRN: [id number] date: 2005 Sex: F Assigned Patient Location: ER Current Patient Location: ER Accession/Order Number: [id number] Exam Date: 10/26/2024 12:44 Report Date: 10/26/2024 13:08 At the request of: LINDA LARSON Procedure: CT abdomen pelvis w con EXAMINATION: CT abdomen pelvis w con HISTORY: Abdominal pain, vomiting COMPARISON: CT abdomen pelvis 09/01/2023 TECHNIQUE: Axial, Coronal, and Sagittal images were obtained without and/or with IV contrast as indicated by examination type. Dose reduction techniques were achieved by using automated exposure control and/or adjustment of mA and/or kV according to patient size and/or use of iterative reconstruction technique. FINDINGS: LUNG BASES: No visible pulmonary or pleural disease. LIVER: Fatty infiltration of the liver. BILIARY: No dilatation or calcification. PANCREAS: No lesion, fluid collection, or abnormal duct dilatation. SPLEEN: No enlargement or focal lesion. ADRENALS: No mass or enlargement. KIDNEYS: No mass, obstruction, or calcification. BOWEL/MESENTERY: No visible mass, obstruction, or bowel wall thickening. AORTA/VASCULAR: No aneurysm or dissection. RETROPERITONEUM: No mass or adenopathy. LYMPH NODES: No adenopathy. URINARY BLADDER: No visible focal wall thickening, lesion, or calculus. PELVIC ORGANS: 2.7 cm cyst within right ovary. No visible mass. Pelvic organs appropriate for patient age. ABDOMINAL WALL: No mass or hernia. BONES: No bony lesion or fracture. OTHER: Negative. CT/CT abdomen pelvis w con IMPRESSION: 1. Right ovary contains a 2.7 cm cyst of uncertain clinical significance. No surrounding edema or fluid to suggest torsion. 2. No acute findings within the abdomen or pelvis. 3. Fatty infiltration of the liver. Electronically authenticated by: OSCAR TRINIDAD Date: 10/26/2024 13:08
--- NOTE | 2024-10-26 11:36 | ED_ITS ---
HPI HPI - General Adult General Chief complaint: Nausea/Vomiting/Diarrhea Stated complaint: NAUSEA/VOMITING Time Seen by Provider: 10/26/24 11:15 Source: patient and family Mode of arrival: walk-in Limitations: no limitations History of Present Illness HPI narrative: 19-year-old female presents for abdominal pain and nausea and vomiting. She was seen here yesterday and had a negative workup. She states her stomach started hurting again last night so she came back. No hematemesis or fever. No trauma. According to EHR she has a history of cyclic vomiting syndrome. Related Data Home Medications ?Medication ?Instructions ?Recorded ?Confirmed ondansetron 4 mg disintegrating 4 mg translingual Q8H 07/19/24 09/21/24 tablet Previous Rx's ?Medication ?Instructions ?Recorded promethazine 25 mg rectal 25 mg IN Q6H PRN nausea and 03/13/24 suppository vomiting #12 ea dicyclomine 20 mg tablet 20 mg PO QID PRN abdominal pain 07/30/24 #14 tabs promethazine 25 mg tablet 25 mg PO TID PRN nausea and 07/30/24 vomiting #10 tabs cephalexin 500 mg capsule 500 mg PO BID 10 days #20 caps 09/21/24 phenazopyridine 200 mg tablet 200 mg PO Q8H 6 doses #6 tabs 09/21/24 (Pyridium) ondansetron 4 mg disintegrating 4 mg PO Q6H PRN nausea and 10/25/24 tablet vomiting #20 tabs Allergies Allergy/AdvReac Type Severity Reaction Status Date / Time haloperidol (From Haldol) Allergy Severe icthy Verified 10/25/24 11:15 metoclopramide (From Reglan) AdvReac Intermediate facial Verified 10/25/24 11:15 drooping Opioid HPI Opioid Management Most Recent Opioid Data: Last Pain Scale 6 10/26/24 12:37 10/26/24 Last MAR Pain Assessment 10/26/24 12:37 Ur Phencyclidine Scrn Negative (NEGATIVE) 10/26/24 14:00 09/29 08/21 Review of Systems ROS Narrative A ten point review of systems is negative except as noted above. PFSH [facility] Medical History (Updated 10/26/24 @ 15:13 by Juan C Hernandez MD) Leukocytosis ?D72.829 - Elevated white blood cell count, unspecified (ICD-10) Bipolar 1 disorder ?F31.9 - Bipolar disorder, unspecified (ICD-10) Migraine ?G43.909 - Migraine, unspecified, not intractable, without status migrainosus (ICD-10) POTS (postural orthostatic tachycardia syndrome) ?G90.A - Postural orthostatic tachycardia syndrome [POTS] (ICD-10) Cyclic vomiting syndrome ?R11.15 - Cyclical vomiting syndrome unrelated to migraine (ICD-10) Cyclic vomiting syndrome ?R11.15 - Cyclical vomiting syndrome unrelated to migraine (ICD-10) Fall ?W19.XXXA - Unspecified fall, initial encounter (ICD-10) Fracture of tibial plateau ?S82.143A - Displaced bicondylar fracture of unspecified tibia, initial encounter for closed fracture (ICD-10) Surgical History History of appendectomy ?Z90.49 - Acquired absence of other specified parts of digestive tract (ICD- 10) Family History Father Family history of stroke Family history of diabetes mellitus Family history of cancer Family history of hypertension Family history of CHF (congestive heart failure) Grandfather Family history of stroke Grandmother Family history of myocardial infarction Mother Family history of diabetes mellitus Family history of cancer Social History Within the past year, how often did you have a drink containing alcohol: never Score interpretation: A score less than 3 is consistent with normal alcohol consumption. Smoking status: Current every day smoker Non-prescribed substance use: cannabis (any form) Little interest or pleasure in doing things: not at all Feeling down, depressed, or hopeless: not at all Do you think of yourself as: straight/heterosexual Gender Identity: female Exam Narrative Exam Narrative: Nurses note and vital signs reviewed and patient is not hypoxic. General: The patient appears in no apparent distress. Patient is resting on cart. Skin: Warm, dry, no pallor noted. There is no rash noted. Head: Normocephalic, atraumatic, EOMI. PERRL Ears, Nose, Mouth, and Throat: oral mucosa is moist. Nares patent. Cardiovascular: Regular Rate and Rhythm Respiratory: Patient is in no distress, no accessory muscle use, lungs are clear to auscultation, no wheezing, rales or rhonchi Back: non-tender GI: Soft and nondistended. No apparent tenderness on palpation Musculoskeletal: The patient has no evidence of calf tenderness, no pitting edema, symmetrical pulses noted bilaterally Neurological: Awake and alert Psychiatric: Cooperative Constitutional Vital Signs, click to edit/add: Last Vital Signs Temp 98.6 F 10/26/24 11:26 Pulse 57 L 10/26/24 11:26 Resp 16 10/26/24 11:26 BP 133/92 H 10/26/24 11:26 Pulse Ox 100 10/26/24 11:26 O2 Del Method Room Air 10/26/24 11:26 Course Vital Signs Vital signs: Vital Signs Temperature 98.6 F 10/26/24 11:26 Pulse Rate 57 L 10/26/24 11:26 Respiratory Rate 16 10/26/24 11:26 Blood Pressure 133/92 H 10/26/24 11:26 Pulse Oximetry 100 10/26/24 11:26 Oxygen Delivery Method Room Air 10/26/24 11:26 Temperature 98.6 F 10/26/24 11:26 Pulse Rate 57 L 10/26/24 11:26 Respiratory Rate 16 10/26/24 11:26 Blood Pressure 133/92 H 10/26/24 11:26 Pulse Oximetry 100 10/26/24 11:26 Oxygen Delivery Method Room Air 10/26/24 11:26 Medical Decision Making MDM Narrative Medical decision making narrative: Her workup again is negative including CAT scan of the abdomen today. She is positive for marijuana. Findings are discussed with the patient and she is discharged home. Incidental finding is noted of the right ovarian cyst. Treatment diagnosis and follow-up were discussed thoroughly Differential Diagnosis Differential Diagnosis: Cannabinol abuse, cyclic vomiting syndrome, dehydration Lab Data Lab results reviewed: Yes I reviewed the patient's lab results Labs: Lab Results 10/26/24 10/26/24 Range/Units 12:19 14:00 WBC 13.8 H (4.0-11.0) 10^3/uL RBC 5.69 H (4.20-5.40) 10^6/uL Hgb 16.2 H (12.0-16.0) g/dL Hct 48.9 H (36.0-48.0) % MCV 85.9 (81.0-99.0) fL MCH 28.5 (26.7-34.0) pg MCHC 33.1 (29.9-35.2) g/dL RDW 12.6 (11.0-15.0) % Plt Count 277 (150-450) 10^3/uL MPV 11.2 (9.5-13.5) fL Neut % (Auto) 72.9 (43.0-75.0) % Lymph % (Auto) 18.2 L (20.5-60.0) % [place] % (Auto) 7.8 (1.7-12.0) % Eos % (Auto) 0.3 L (0.9-7.0) % Baso % (Auto) 0.4 (0.2-2.0) % Neut # (Auto) 10.1 H (1.4-6.5) 10^3/uL Lymph # (Auto) 2.5 (1.2-3.8) 10^3/uL [place] # (Auto) 1.1 H (0.3-0.8) 10^3/uL Eos # (Auto) 0.0 (0.0-0.7) 10^3/uL Baso # (Auto) 0.1 (0.0-0.1) 10^3/uL Abs Immat Gran (auto) 0.06 H (0.00-0.03) 10^3/uL Imm/Tot Granulo (auto) 0.4 (0.0-0.5) % Sodium 138 (136-145) mmol/L Potassium 3.0 L (3.5-5.1) mmol/L Chloride 97 L (98-107) mmol/L Carbon Dioxide 25.6 (21.0-32.0) mmol/L Anion Gap 18.4 BUN 22.0 H (7.0-18.0) mg/dL Creatinine 1.01 (0.55-1.02) mg/dL Est GFR ( Amer) >60 (>=60 mL/min/1.73m^2) Est GFR (Non-Af Amer) >60 (>=60 mL/min/1.73m^2) BUN/Creatinine Ratio 21.8 Glucose 104 (74-106) mg/dL Calcium 10.3 H (8.5-10.1) mg/dL Urine Color Lt. yellow (YELLOW) Urine Clarity Clear (CLEAR) Urine pH 8.5 (5.0-9.0) Ur Specific [place] 1.010 (1.005-1.025) Urine Protein Trace (NEG/TRACE) mg/dL Urine Glucose (UA) Negative (NEGATIVE) mg/dL Urine Ketones 15 A (NEGATIVE) mg/dL Urine Occult Blood Negative (NEGATIVE) Urine Nitrite Negative (NEGATIVE) Urine Bilirubin Negative (NEGATIVE) Urine Urobilinogen 1.0 (0.2-1.0) EU/dL Ur Leukocyte Esterase Negative (NEGATIVE) Urine RBC 0-2 (0-2) #/HPF Urine WBC 0-2 A (NONE SEEN) #/HPF Ur Squamous Epith Cells Moderate A (NONE/RARE) #/LPF Urine Crystals Seen A (None Seen) #/HPF Amorphous Sediment Few Urine Bacteria Trace A (NONE SEEN) #/HPF Urine Casts None seen (NONE SEEN) #/LPF Urine Mucus None seen (NONE SEEN) Urine Opiates Screen Negative (NEGATIVE) Ur Buprenorphine Scrn Negative (NEGATIVE) Ur Oxycodone Screen Negative (NEGATIVE) Urine Methadone Screen Negative (NEGATIVE) Ur Barbiturates Screen Negative (NEGATIVE) U Tricyclic Antidepress Negative (NEGATIVE) Ur Phencyclidine Scrn Negative (NEGATIVE) Ur Amphetamines Screen Negative (NEGATIVE) U Methamphetamines Scrn Negative (NEGATIVE) U Benzodiazepines Scrn Negative (NEGATIVE) Urine Cocaine Screen Negative (NEGATIVE) U Cannabinoids Screen Positive A (NEGATIVE) Imaging Data CT scan - abdomen: Radiologist's impression: ITS Impressions Abdomen/Pelvis CT 10/26/24 11:35 IMPRESSION: 1. Right ovary contains a 2.7 cm cyst of uncertain clinical significance. No surrounding edema or fluid to suggest torsion. 2. No acute findings within the abdomen or pelvis. 3. Fatty infiltration of the liver. Electronically authenticated by: OSCAR TRINIDAD Date: 10/26/2024 13:08 Discharge Plan Discharge Chief Complaint: Nausea/Vomiting/Diarrhea Clinical Impression: Nausea and vomiting Patient Disposition: Home, Self-Care Time of Disposition Decision: 15:13 Condition: Good Mode of Transportation: Private Vehicle Prescriptions / Home Meds: No Action ondansetron 4 mg tablet,disintegrating 4 mg translingual Q8H cephalexin 500 mg capsule 500 mg PO BID 10 Days Qty: 20 0RF phenazopyridine [Pyridium] 200 mg tablet 200 mg PO Q8H Qty: 6 0RF ondansetron 4 mg tablet,disintegrating 4 mg PO Q6H PRN (Reason: nausea and vomiting) Qty: 20 0RF promethazine 25 mg suppository 25 mg IN Q6H PRN (Reason: nausea and vomiting) Qty: 12 0RF dicyclomine 20 mg tablet 20 mg PO QID PRN (Reason: abdominal pain) Qty: 14 0RF promethazine 25 mg tablet 25 mg PO TID PRN (Reason: nausea and vomiting) Qty: 10 0RF Print Language: Greek Instructions: Acute Nausea and Vomiting (ED), Acute Abdominal Pain (ED) Referrals: Modesta Chand ADDICTION TREATMENT COUNSELOR [Primary Care Provider] - 1 week
[2024-10-26 12:33] LABS: Basophils Absolute Auto 0.1 10^3/uL (0.0-0.1); Basophils Percent Auto 0.4 % (0.2-2.0); Eosinophils Percent Auto 0.3 % (0.9-7.0); Hematocrit 48.9 % (36.0-48.0); Hemoglobin 16.2 g/dL (12.0-16.0); Immature Granulocytes Abs Auto 0.06 10^3/uL (0.00-0.03); Immature Granulocytes Pct Auto 0.4 % (0.0-0.5); Lymphocytes Absolute Auto 2.5 10^3/uL (1.2-3.8); Lymphocytes Percent Auto 18.2 % (20.5-60.0); Mean Corpuscular HGB Conc 33.1 g/dL (29.9-35.2); Mean Corpuscular Hemoglobin 28.5 pg (26.7-34.0); Mean Corpuscular Volume 85.9 fL (81.0-99.0); Mean Platelet Volume 11.2 fL (9.5-13.5); Monocytes Absolute Auto 1.1 10^3/uL (0.3-0.8); Monocytes Percent Auto 7.8 % (1.7-12.0); Neutrophils Absolute Auto 10.1 10^3/uL (1.4-6.5); Neutrophils Percent Auto 72.9 % (43.0-75.0); Platelet Count 277 10^3/uL (150-450); Red Blood Count 5.69 10^6/uL (4.20-5.40); Red Cell Distribution Width 12.6 % (11.0-15.0); White Blood Count 13.8 10^3/uL (4.0-11.0)
[2024-10-26] MEDS: 0.9 % SODIUM CHLORIDE 1,000 ML 1000 ML IV (12:35)
[2024-10-26] MEDS: ONDANSETRON PF 4 MG/2 ML VIAL IV (12:37)
[2024-10-26] MEDS: KETOROLAC TROMETHAMINE 30 MG/ML VIAL IVP (12:37)
[2024-10-26 12:44] LABS: Anion Gap 18.4; BUN Creatinine Ratio 21.8; Calcium 10.3 mg/dL (8.5-10.1); Carbon Dioxide 25.6 mmol/L (21.0-32.0); Chloride 97 mmol/L (98-107); Estimated GFR (African America >60 (>=60 mL/min/1.73m^2); Estimated GFR (Non-African Ame >60 (>=60 mL/min/1.73m^2); Glucose 104 mg/dL (74-106); Sodium 138 mmol/L (136-145)
[2024-10-26] MEDS: DICYCLOMINE HCL 20 MG/2 ML VIAL IM (14:07)
[2024-10-26 14:20] LABS: Bilirubin Urine NEGATIVE (NEGATIVE); Blood Urine NEGATIVE (NEGATIVE); Clarity Urine CLEAR (CLEAR); Color Urine LT. YELLOW (YELLOW); Glucose Urine UA NEGATIVE (NEGATIVE); Ketones Urine 15 mg/dL (NEGATIVE); Leukocyte Esterase Urine NEGATIVE (NEGATIVE); Nitrite Urine NEGATIVE (NEGATIVE); Protein Urine TRACE mg/dL (NEG/TRACE); pH Urine 8.5 (5.0-9.0)
[2024-10-26 14:30] LABS: Amphetamine Screen Urine NEGATIVE (NEGATIVE); Barbiturates Screen Urine NEGATIVE (NEGATIVE); Benzodiazepines Screen Urine NEGATIVE (NEGATIVE); Buprenorphine Screen Urine NEGATIVE (NEGATIVE); Cannabinoid Screen Urine POSITIVE (NEGATIVE); Cocaine Screen Urine NEGATIVE (NEGATIVE); Methadone Screen Urine NEGATIVE (NEGATIVE); Methamphetamines Screen Urine NEGATIVE (NEGATIVE); Opiate Screen Urine NEGATIVE (NEGATIVE); Oxycodone Screen Urine NEGATIVE (NEGATIVE); Phencyclidine Screen Urine NEGATIVE (NEGATIVE); Tricyclic Antidepressant Urine NEGATIVE (NEGATIVE)
--- NOTE | 2024-10-26 14:33 | ECG_ITS ---
[facility] Test Date: 2024-10-26 Pat Name: PILI SEGURA Department: Room: - Gender: Female Critical Care Registered Nurse: : 2005 Requested By: 1030 Order Number: [id number] Reading MD: HILTON WOLFE Measurements Intervals [place] Rate: 55 P: 55 CO: 130 QRS: 33 QRSD: 82 T: 51 QT: 434 QTc: 423 Interpretive Statements 1100 Sinus rhythm 1102 Sinus arrhythmia 9110 normal ECG Compared to ECG 07/31/2024 10:56:42 Sinus bradycardia no longer present Electronically Signed On 10-28-2024 7:36:18 EST by HILTON WOLFE
[2024-10-26 14:39] LABS: Bacteria Urine TRACE #/HPF (NONE SEEN); Mucus Urine NONE SEEN (NONE SEEN)
[2024-10-26 14:40] LABS: Amorphous Sediment Urine FEW; Cast Seen? NONE SEEN #/LPF (NONE SEEN); Crystals Seen? Seen #/HPF (None Seen); RBC Urine 0-2 #/HPF (0-2); Squamous Epithelial Cell Urine MODERATE #/LPF (NONE/RARE); WBC Urine 0-2 #/HPF (NONE SEEN)
== END 2024-10-26 15:27 | disposition home or self-care (01) ==
PROVIDERS: Emergency Provider Emergency Medicine; PCP Nurse Practitioner Family
DX: R11.2 Nausea with vomiting, unspecified (principal); N83.201 Unspecified ovarian cyst, right side; F17.200 Nicotine dependence, unspecified, uncomplicated; Z90.49 Acquired absence of other specified parts of digestive tract
CPT/HCPCS: 36415; 74177; 80048; 80307; 81001; 85025; 93005; 96372; 96374; 96375; 99285; J0500; J1885; J2405; Q9967

== ENCOUNTER 2024-12-28 20:25 | Emergency (ER) | payer OTHER, SELFPAY ==
[2024-12-28 20:31] VITALS: BP 127/78; PULSE 62; TEMP 36.9; O2SAT 97; BMI 31.9
--- OUTSIDE RECORDS SUMMARY | 2024-12-28 20:33 | XMS_ITS | CCD ---
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 Name Role Phone Calvin, Mere T Unavailable [...] Nilay Unavailable Unavailable Unavailable Primary Care Provider [facility] Primary Care Provider [phone] Tash, DO Art M Emergency Provider DO Ender Donovan Emergency Provider Saundra, DO VoRavi M Emergency Provider Matthew DO Gilson Emergency Provider [phone] MILY Chand Attending Pr ovider MD Brennen Britt Attending Provider [facility] Prov ider [facility] Primary Care Provider [phone] FRANKY Rivera Emergency Provider MD Colten Fry Jr Emergency Provider DO Matthew Gilson Emergency Provider Aurelio, DO Gregorio Admit Provider Aurelio DO Gregorio Attending Provider [facility] Prov ider FRANKY Rivera Emergency Provider [phone] MD Colten Fry Jr Emergency Provider DO Matthew Gilson Emergency Provider Aurelio, DO Gregorio Admit Provider Aurelio DO Gregorio Attending Provider MILY Chand Attending Pr ovider DO Ravi Arguello Emergency Provider [facility] Prov ider FRANKY Rivera Emergency Provider MD Colten Fry Jr Emergency Provider Matthew DO Gilson Emergency Provider Aurelio, DO Gregorio Admit Provider Aurelio DO Gregorio Attending Provider MILY Chand Attending Pr ovider DO Ravi Arguello Emergency Provider [phone] DO Art Bianchi Emergency Provider DO Robert Bolanos Emergency Provider [phone] [facility] Primary Care Provider MD Corey Newberry Emergency Provider [facility] Primary Care Prov ider DO Federico Randolph Emergency Provider KATE Damian Emergency Provider [phone] MD Eliana Bautista Admit Provider MD Eliana Bautista Attending Provider [phone] SANDRO, DR VU Primary Care Unavailable DALIA ., AUSTIN Admitting Unavailable DALIA ., AUSTIN Attending Unavailable DALIA ., AUSTIN Consulting Unavailable DIAB ., IRWIN Admitting Unavailable DIAB ., IRWIN Attending Unavailable SANDRO, DR VU Primary Care Unavailable KIA ARVIZU Consulting Unavailable DIAB ., IRWIN Consulting Unavailable Colten Miller Unavailable [facility] Primary Care Provider MILY Chand Attending Pr ovider MD Colten Miller Attending Provider [facility] Primary Care Provider DO Ravi Arguello Emergency Provider MODESTA ARCHIBALD Primary Care Physician [facility] Primary Care Provider MD Jacinto Benitez Emergency Provider [phone] Cresencio Abel Attending Unavailable MODESTA ARCHIBALD Primary Care Unavailable MODESTA ARCHIBALD Primary Care Unavailable August Bermudez Attending Unavailable MODESTA ARCHIBALD Primary Care Unavailable DO Isaak Franics Attending Unavailable [facility] Primary Care Provider MD Ania Watson Emergency Provider MODESTA ARCHIBALD Primary Care Unavailable August Bermudez Attending Unavailable Cresencio Abel Attending Unavailable MODESTA ARCHIBALD Primary Care Unavailable August Bermudez Attending Unavailable [facility] Primary Care UnavailJacinto Jang Admitting Unavailable Jacinto Benitez Attending Unavailable Rd Brown Admitting Unavailable Rd Brown Attending Unavailable [facility] Care UnavailAnia Clark Attending Unavailable [facility] Care UnavailAnia Clark Admitting Unavailable Allergies Allergy Classification Reported Allergen(s) Allergy Type Date of Onset Reaction(s) Facility (11 sources) Haloperidol; Translations: [Haloperidol] Drug Allergy 3 Unknown Reaction, facial droop [facility] (13 sources) Metoclopramide; Translations: [Metoclopramide] Drug Allergy 3 Unknown (qualifier value) [facility] (3 sources) Haloperidol; Translations: [Haldol] Drug Allergy [facility] (3 sources) Iothalamate; Translations: [Reglan] Drug Allergy [facility] Medications Current Medications Medication Drug Class(es) Dates Sig (Normalized) Sig (Original) acetaminophen 325 mg / HYDROcodone bitartrate 5 mg oral tablet (20 sources) Opioid Agonist Start: 03-13-2024 End: 03-16-2024 [place] 325 mg-5 mg oral tablet 1 tab(s), Oral, q6hr for pain for 3 day(s), 7 tab(s), Refill(s) 0, [facility]/pharmacy #[id number], 160, cm, 03/13/24 17:38:00 EDT, [...] tablet by mouth every six hours Hydrocodone-Acetaminophen ([place]) 5-325 mg tablet Discontinued 1 TAB PO Q6H 6 2 December 15, 2019 December 31, 2019 1:37pm Start: 12-15-2019 End: 12-31-2019 Start: 04-20-2019 End: 05-05-2019 take 1 tablet by mouth every six hours Hydrocodone-Acetaminophen Discontinued 1 TAB PO Q6H 20 April 20, 2019 May 05, 2019 8:42pm Start: 04-20-2019 End: 05-05-2019 Start: 02-19-2019 End: 03-08-2019 take 1 tablet by mouth twice daily Hydrocodone-Acetaminophen ([place]) 5-325 mg tablet Discontinued 1 TAB PO [...] every 4-6 hrs for 5 days SANTO: [id number] Apr, Active take 1 tablet by kathe [...] day(s), # 9 tab(s), Refills(s) 0, Pharmacy: [facility]/pharmacy #[id number], 160, cm, 03/13/24 17:38:00 EDT, [...] pain, # 20 tab(s), Refills(s) 0, Pharmacy: [facility]/pharmacy #[id number], 160, cm, 03/13/24 17:38:00 EDT, [...] line, # 10 tab(s), Refills(s) 0, Pharmacy: [facility]/pharmacy #[id number], 157, cm, 07/30/24 19:37:00 EDT, Height/Length Dosing, 96.1, kg, 07/30/24 19:37:00 EDT, Weight Dosing Start Date: 07/30/24 Status: Ordered Start: 07-30-2024 take 12.5 mg rectal route every eight hours as needed for nausea Phenergan 12.5 mg Supp 12.5 mg = 1 supp, Rectal, q8hr, PRN as needed for nausea/vomiting, 3rd line, # 6 EA, Refills(s) 0, Pharmacy: [facility]/pharmacy #[id number], 157, cm, 07/30/24 19:37:00 EDT, Height/Length Dosing, 96.1, kg, 07/30/24 19:37:00 EDT, Weight Dosing Start Date: 07/30/24 Status: Ordered Start: 05-25-2023 take 12.5 mg by mout h three times daily Promethazine Active 12.5 MG PO Three times daily May 25, 2023 8:37am Start: 01-02-2023 Promethazine A ctive 25 MG OH Q6H January 02, 2023 1:00am Start: 12-31-2022 [...] 02-09-2022 End: 03-08-2022 Promethazine Discontinued 25 MG OH Q6H February 09, 2022 12:00am March 08, [...] End: 10-08-2021 Promethazine Discontinued 12 .5 MG OH Once September 30, 2021 12:00am October 08, [...] (Phenergan) 25 mg suppository Discontinued 25 MG OH Q4H May 10, 2019 12:00am September 03, 2019 8:25pm Start: 03-08-2019 End: 03-23-2019 take 25 mg by mouth every four to six hours Promethazine Discontinued 25 MG PO EVERY 4-6 HOURS March 08, 2019 12:00am March 23, 2019 5:49pm Start: 02-13-2018 End: 03-13-2018 Promethazine (Phenergan) 25 mg suppository Discontinued 25 MG OH Q8H February 13, 2018 12:00am March 13, 2018 10:44pm Start: 01-03-2018 End: 10-16-2018 Promethazine Discontinued 25 MG OH Q6H April 23, 2018 6:04pm October 16, [...] Nausea/Vomiting, # 16 tab(s), Refills(s) 0, Pharmacy: [facility]/pharmacy #[id number], 157, cm, 07/30/24 19:37:00 EDT, Height/Length Dosing, 96.1, kg, 07/30/24 19:37:00 EDT, Weight Dosing Start Date: 07/30/24 Status: Ordered Completed/Discontinued Medications Medication Drug Class(es) Dates Sig (Normalized) Sig (Original) [id number] 200 actuat albuterol 0.09 mg/actuat metered dose [...] 25 mg oral tablet (20 sources) beta-Adrenergic Adná Start: 10-03-2017 End: 07-30-2018 take 25 mg [...] / neomycin 3.5 mg/ml / polymyxin [id number] unt/ml otic suspension (20 sources) Aminoglycoside Antibacterial, Polymyxin-class Antibacterial, Corticosteroid Start: 10-31-2017 End: 12-21-2017 Vbevvldi-Alsxzryno-Og Discontinued 3 DROPS OTIC Three times daily [...] tablet (20 sources) Start: 12-11-19 End: 01-12-20 21 take 15 mg by mouth once daily Mirtazapine Discontinued 15 MG PO Daily December 11, 2019 1:00am January 12, 2021 1:35pm Tsjuxdqq-Syh-Lnynwlx Fumarate (Multi Vitamin) 9 mg iron/15 mL Liquid (14 sources) Start: 09-30-20 End: 07-19-20 21 take 1 tablet by mouth once daily Xtlulofl-Zec-Szvereg Fumarate (Multi Vitamin) 9 mg iron/15 mL Liquid Discontinued 1 TAB PO Daily September 29, 2019 11:00pm July 19, 2021 1:07pm Start: 09-30-2019 End: 07-19-2021 take 1 tablet by mouth once daily Apsnfcir-Ynz-Xmtiswz Fumarate (Multi Vitamin) 9 mg iron/15 mL [...] End: 03-13-2018 Oxymetazoline (Afrin (Oxymetazoline)) 0.05 % [place],Non-Aerosol Discontinued 2 SPRAY INTRANASAL Q12H December 23, [...] take 1 tablet by mouth once daily Prenat.Vits,Noe,Vyv-Zcnh-Ttwhf Discontin ued 1 TAB PO Daily 60 February 06, 2022 1:00am March 08, 2022 8:15pm Vit No.471-Macq-Mduff ( Vitamin) 27 mg iron- 800 mcg tablet (14 sources) Start: 06-08-2022 End: 08-18-2022 take 1 tablet by mouth once daily Vit No.122-Clhc-Aytky ( Vitamin) 27 mg iron- 800 mcg tablet Discontinued 1 TAB PO Daily June 07, 2022 11:00pm August 18, 2022 11:33am Start: 06-08-2022 End: 08-18-2022 take 1 tablet by mouth once daily Vit No.337-Jjjt-Bhxwv ( Vitamin) 27 mg iron- 800 mcg tablet Discontinued 1 TAB PO Daily June 08, 2022 12:00am August 18, 2022 12:33pm Start: 06-08-2022 take 1 tablet by kathe th once daily Vit No.622-Thuq-Jhlgu ( Vitamin) 27 mg iron- 800 mcg [...] / K92.0(ICD-10) Onset: 7 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-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 (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) / [...] Translations: [Urinary tract infection, site not specified] Onset: 4 12-23-2017 Episodic Viral infection (20 sources) Viral disease; Translations: [Viral infection, unspecified] 08-17-2018 Episodic Past or Other Problems Problem Classification Problem Date Documented Da te Episodic/Chronic Nausea and vomiting (20 sources) Adverse reaction to cannabis; Translations: [Nausea with vomiting, unspecified] Onset: 01-01-2023 05-14-2022 Episodic Nonspecific chest pain (13 sources) Chest pain; Translations: [Chest pain, unspecified] Onset: 08-03-2024 01-06-2023 Episodic Spondylosis; intervertebral disc disorders; other back problems (1 source) Dorsalgia, unspecified; Translations: [Dorsalgia, unspecified] Onset: 08-25-2017 Episodic Unclassified (1 source) Vomiting, unspecified; Translations: [Vomiting, unspecified] Onset: 08-25-2017 Unclassified (1 source) Tachycardia, unspecified; Translations: [Tachycardia, unspecified] Onset: 08-25-2017 Results Test Name Value Interpretation Reference Range Facility Basic Metabolic Panelon 12-0 Anion gap [Moles/Vol] 19.5 mmol/L High 6.0-15.0 [facility] Comment on above: Performed By: #### C K, PT, BNP, PTT, CBC, BMP, HS TROP #### [facility] [address] [place] [address] [place] Calcium [Mass/Vol] 10.4 mg/dL High 8.6-10.3 [facility] Comment on above: Performed By: #### C K, PT, BNP, PTT, CBC, BMP, HS TROP #### [facility] [address] [place] [id number] [place] Chloride [Moles/Vol] 94 mmol/L Low 98-107 [facility] Comment on above: Performed By: #### C K, PT, BNP, PTT, CBC, BMP, HS TROP #### [facility] [address] CO2 [Moles/Vol] 26.3 mmol/L Normal 21.0-31.0 [facility] Comment on above: Performed By: #### C K, PT, BNP, PTT, CBC, BMP, HS TROP #### [facility] [address] Creatinine [Mass/Vol] 0.91 mg/dL Normal 0.60-1.20 [facility] Comment on above: Performed By: #### C K, PT, BNP, PTT, CBC, BMP, HS TROP #### [address] Creatinine Clr Calc Pharmacy 104.62 Normal [facility] Comment on above: Performed By: #### C K, PT, BNP, PTT, CBC, BMP, HS TROP #### [place] [address] [place] GFR/1.73 sq M.predicted MDRD (S/P/Bld) [Vol rate/Area] mL/min/{1.73_m2} Normal [facility] Comment on above: Performed By: #### C K, PT, BNP, PTT, CBC, BMP, HS TROP #### [address] Glucose [Mass/Vol] 91 mg/dL Normal 70-100 [facility] Comment on above: Result Comment: [place] Glucose Reference Range is dependent on time and content of last meal. Glucose of more than 200 mg/dL in a nonstressed, ambulatory subject supports the diagnosis of Diabetes Mellitus. ADA recommended reference range Performed By: #### C K, PT, BNP, PTT, CBC, BMP, HS TROP #### [facility] [address] Potassium [Moles/Vol] 2.8 mmol/L Off scale low 3.5-5.1 [facility] Comment on above: Result Comment: Crit ical Result Called to and read back by: MATT BUSH at: 10/28/2024 19:29:56 by:[id number] Performed By: #### C K, PT, BNP, PTT, CBC, BMP, HS TROP #### [address] Sodium [Moles/Vol] 137 mmol/L Normal 136-145 [facility] Comment on above: Performed By: #### C K, PT, BNP, PTT, CBC, BMP, HS TROP #### [address] Urea nitrogen [Mass/Vol] 21 mg/dL Normal 7-25 [facility] Comment on above: Performed By: #### C K, PT, BNP, PTT, CBC, BMP, HS TROP #### [address] Complete Blood Count Auto Di ffon 10-28-2024 Basophils (Bld) [#/Vol] 0.1 10*3/uL Normal 0.0-0.2 [facility] Comment on above: Result Comment: PERF ORMED BY: [place] [address] PATHOLOGIST MARKET INVESTIGATOR IDANIA GODOY M.D. Performed By: #### C K, PT, BNP, PTT, CBC, BMP, HS TROP #### [address] Basophils/100 WBC (Bld) 0.7 % Normal . [facility] Comment on above: Performed By: #### C K, PT, BNP, PTT, CBC, BMP, HS TROP #### [address] Eosinophils (Bld) [#/Vol] 0.1 10*3/uL Normal 0.0-0.45 [facility] Comment on above: Performed By: #### C K, PT, BNP, PTT, CBC, BMP, HS TROP #### [place] [address] [place] Eosinophils/100 WBC (Bld) 0.6 % Normal . [facility] Comment on above: Performed By: #### C K, PT, BNP, PTT, CBC, BMP, HS TROP #### [address] Erythrocyte distribution width (RBC) [Ratio] 13.4 % Normal 11.9-15.3 [facility] Comment on above: Performed By: #### C K, PT, BNP, PTT, CBC, BMP, HS TROP #### [address] Hematocrit (Bld) [Volume fraction] 49.2 % High 34.0-46.4 [facility] Comment on above: Performed By: #### C K, PT, BNP, PTT, CBC, BMP, HS TROP #### [address] Hemoglobin (Bld) [Mass/Vol] 16.5 g/dL High 11.8-15.4 [facility] Comment on above: Performed By: #### C K, PT, BNP, PTT, CBC, BMP, HS TROP #### [address] Lymphocytes (Bld) [#/Vol] 2.9 10*3/uL Normal 1.00-4.8 [facility] Comment on above: Performed By: #### C K, PT, BNP, PTT, CBC, BMP, HS TROP #### [address] Lymphocytes/100 WBC (Bld) 14.7 % Normal . [facility] Comment on above: Performed By: #### C K, PT, BNP, PTT, CBC, BMP, HS TROP #### [address] MCH (RBC) [Entitic mass] 28.7 pg Normal 24.7-34.3 [facility] Comment on above: Performed By: #### C K, PT, BNP, PTT, CBC, BMP, HS TROP #### [address] MCV (RBC) [Entitic vol] 85.7 fL Normal 80-100 [facility] Comment on above: Performed By: #### C K, PT, BNP, PTT, CBC, BMP, HS TROP #### [address] Mean Corpuscular HGB Conc 33.5 g/dL Normal 32.0-35.0 [facility] Comment on above: Performed By: #### C K, PT, BNP, PTT, CBC, BMP, HS TROP #### [address] Monocytes (Bld) [#/Vol] 1.2 10*3/uL High 0.0-0.8 [facility] Comment on above: Performed By: #### C K, PT, BNP, PTT, CBC, BMP, HS TROP #### [address] Monocytes/100 WBC (Bld) 16.96 % Normal 0.00-20.00 [facility] Comment on above: Performed By: #### C K, PT, BNP, PTT, CBC, BMP, HS TROP #### [address] Monocytes/100 WBC (Bld) 5.9 % Normal . [facility] Comment on above: Performed By: #### C K, PT, BNP, PTT, CBC, BMP, HS TROP #### [address] Neutrophils (Bld) [#/Vol] 15.5 10*3/uL High 1.8-7.7 [facility] Comment on above: Performed By: #### C K, PT, BNP, PTT, CBC, BMP, HS TROP #### [address] Neutrophils/100 WBC (Bld) 78.1 % Normal . [facility] Comment on above: Performed By: #### C K, PT, BNP, PTT, CBC, BMP, HS TROP #### [address] NRBC% 0.1 /100{WBC} Normal 0-0.5 [facility] Comment on above: Performed By: #### C K, PT, BNP, PTT, CBC, BMP, HS TROP #### [address] Platelet mean volume (Bld) [Entitic vol] 8.4 fL Normal 6.3-10.7 [facility] Comment on above: Performed By: #### C K, PT, BNP, PTT, CBC, BMP, HS TROP #### [address] Platelets (Bld) [#/Vol] 333 10*3/uL Normal 150-450 [facility] Comment on above: Performed By: #### C K, PT, BNP, PTT, CBC, BMP, HS TROP #### [address] RBC (Bld) [#/Vol] 5.74 10*6/uL High 3.60-5.00 [facility] Comment on above: Performed By: #### C K, PT, BNP, PTT, CBC, BMP, HS TROP #### [address] WBC (Bld) [#/Vol] 19.8 10*3/uL High 3.8-11.6 [facility] Comment on above: Performed By: #### C K, PT, BNP, PTT, CBC, BMP, HS TROP #### [place] [address] [place] Dipstick and Microscopicon 1 12-29-2023 Appearance (U) Turbid Critically abnormal Clear [facility] Comment on above: Order Comment: Name Collection Type:: Clean-Voided Midstream Performed By: #### C UU, UHCG, ADDONUAPLUS #### [address] Bacteria,Urine 1+ High None Seen [facility] Comment on above: Order Comment: Name Collection Type:: Clean-Voided Midstream Performed By: #### C UU, UHCG, ADDONUAPLUS #### [facility] [address] [place] [address] [place] Bilirubin,Urine Negative Normal Negative [facility] Comment on above: Order Comment: Name Collection Type:: Clean-Voided Midstream Performed By: #### C UU, UHCG, ADDONUAPLUS #### [facility] [address] [place] [address] [place] Color (U) Light-[place] Critically abnormal Yellow [facility] Comment on above: Order Comment: Name Collection Type:: Clean-Voided Midstream Performed By: #### C UU, UHCG, ADDONUAPLUS #### [address] Glucose Ql (U) Normal Normal Normal [facility] Comment on above: Order Comment: Name Collection Type:: Clean-Voided Midstream Performed By: #### C UU, UHCG, ADDONUAPLUS #### [place] [address] [place] Hyaline Casts,Urine 9 [LPF] High 0-8 [facility] Comment on above: Order Comment: Name Collection Type:: Clean-Voided Midstream Performed By: #### C UU, UHCG, ADDONUAPLUS #### [place] [address] [place] Ketones Ql (U) 3+ High Negative [facility] Comment on above: Order Comment: Name Collection Type:: Clean-Voided Midstream Performed By: #### C UU, UHCG, ADDONUAPLUS #### [facility] [address] [place] [address] [place] Leukocyte esterase Test strip Ql (U) 3+ High Negative [facility] Comment on above: Order Comment: Name Collection Type:: Clean-Voided Midstream Performed By: #### C UU, UHCG, ADDONUAPLUS #### [place] [address] [place] Mucus,Urine 4+ Critically abnormal [facility] Comment on above: Order Comment: Name Collection Type:: Clean-Voided Midstream Performed By: #### C UU, UHCG, ADDONUAPLUS #### [address] Nitrite,Urine Negative Normal Negative [facility] Comment on above: Order Comment: Name Collection Type:: Clean-Voided Midstream Performed By: #### C UU, UHCG, ADDONUAPLUS #### [address] Occult Blood,Urine 3+ High Negative [facility] Comment on above: Order Comment: Name Collection Type:: Clean-Voided Midstream Performed By: #### C UU, UHCG, ADDONUAPLUS #### [address] pH (U) 8.0 [pH] Normal 5.0-9.0 [facility] Comment on above: Order Comment: Name Collection Type:: Clean-Voided Midstream Performed By: #### C UU, UHCG, ADDONUAPLUS #### [address] Protein (U) [Mass/Vol] 100 mg/dL High Negative [facility] Comment on above: Order Comment: Name Collection Type:: Clean-Voided Midstream Performed By: #### C UU, UHCG, ADDONUAPLUS #### [address] RBC,Urine Innumerable High 0-4 [facility] Comment on above: Order Comment: Name Collection Type:: Clean-Voided Midstream Performed By: #### C UU, UHCG, ADDONUAPLUS #### [address] Specificy [place]ora,Urine 1.029 Normal 1.001-1.03 0 [facility] Comment on above: Order Comment: Name Collection Type:: Clean-Voided Midstream Performed By: #### C UU, UHCG, ADDONUAPLUS #### [address] Squamous Epithelial Cell,Urine 1 [HPF] Normal 0-2 [facility] Comment on above: Order Comment: Name Collection Type:: Clean-Voided Midstream Performed By: #### C UU, UHCG, ADDONUAPLUS #### [address] Urobilinogen,Urine 6 mg/dL High Normal [facility] Comment on above: Order Comment: Name Collection Type:: Clean-Voided Midstream Performed By: #### C UU, UHCG, ADDONUAPLUS #### [address] WBC,Urine 50 [HPF] High 0-4 [facility] Comment on above: Order Comment: Name Collection Type:: Clean-Voided Midstream Performed By: #### C UU, UHCG, ADDONUAPLUS #### [address] Drug Screen,Urineon 10-28-20 24 Amphetamine Screen,Urine Negative Normal Negative [facility] Comment on above: Performed By: #### C K, PT, BNP, PTT, CBC, BMP, HS TROP #### [address] Barbiturate Screen,Urine Negative Normal Negative [facility] Comment on above: Performed By: #### C K, PT, BNP, PTT, CBC, BMP, HS TROP #### [address] Benzodiazepines Screen,Urine Negative Normal Negative [facility] Comment on above: Performed By: #### C K, PT, BNP, PTT, CBC, BMP, HS TROP #### [address] Cannabinoid Screen,Urine Positive High Negative [facility] Comment on above: Result Comment: Thes e are unconfirmed results and should not be used for legal purposes. Drug Cut-Off Concentration: AMPH 1000 ng/mL NIKOLAS 200 ng/mL SHRAVAN 200 ng/mL COCM 300 ng/mL OP 300 ng/mL PCP 25 ng/mL THC 20 ng/mL PERFORMED BY: [place] [address] PATHOLOGIST MARKET INVESTIGATOR IDANIA GODOY M.D. Performed By: #### C K, PT, BNP, PTT, CBC, BMP, HS TROP #### [address] Cocaine Screen,Urine Negative Normal Negative [facility] Comment on above: Performed By: #### C K, PT, BNP, PTT, CBC, BMP, HS TROP #### [facility] [address] Opiate Screen,Urine Negative Normal Negative [facility] Comment on above: Performed By: #### C K, PT, BNP, PTT, CBC, BMP, HS TROP #### [address] Phencyclidine Screen,Urine Negative Normal Negative [facility] Comment on above: Performed By: #### C K, PT, BNP, PTT, CBC, BMP, HS TROP #### [address] ECG 12 lead ECGon 10-28-2024 ECG 12 lead ECG [facility] Main [place] [address] [place] [address] Electrocardiograph Report Signed Patient: Pili Parikh MR#: [id number] : 2005 Acct:[id number] Age/Sex: 19 / F ADM Date: 10/28/24 Loc: ER Room: Type: [facility] ER Attending Dr: Ordering Provider: Rd Brown PA-C Date of Service: 10/28/2412/21/1939 ECG/ECG 12 lead ECG: Nausea/Vomiting/Diarrhea Copies to: Test Reason : Blood Pressure : 135/79 mmHG Vent. Rate : 83 BPM Atrial Rate : 83 BPM P-R Int : 138 ms QRS Dur : 78 ms QT Int : 372 ms P-R-T Axes : 63 3 53 degrees QTcB Int : 437 ms Normal sinus rhythm Confirmed by Robert BOLANOS DO ([id number]) on 10/28/2024 9:48:18 PM Referred By: Electronically Signed By: Robert BOLANOS DO Transcribed By: MUS Signed By Robert Bolanos DO 1 12/29/232147 Normal [facility] HCG,Urineon 10-28-2024 Beta HCG ( test) Ql (U) Negative Normal [facility] Comment on above: Order Comment: Name Collection Type:: Clean-Voided Midstream Result Comment: PERF ORMED BY: [place] [address] PATHOLOGIST MARKET INVESTIGATOR IDANIA GODOY M.D. Performed By: #### C UU, UHCG, ADDONUAPLUS #### [address] Hepatic Panelon 10-28-2024 Albumin [Mass/Vol] 5.4 g/dL Normal 3.5-5.7 [facility] Comment on above: Performed By: #### C K, PT, BNP, PTT, CBC, BMP, HS TROP #### [address] Albumin/Globulin [Mass ratio] 1.5 {ratio} Normal [facility] Comment on above: Performed By: #### C K, PT, BNP, PTT, CBC, BMP, HS TROP #### [address] ALP [Catalytic activity/Vol] 78 U/L Normal 34-104 [facility] Comment on above: Performed By: #### C K, PT, BNP, PTT, CBC, BMP, HS TROP #### [address] ALT [Catalytic activity/Vol] 48 U/L Normal 7-52 [facility] Comment on above: Performed By: #### C K, PT, BNP, PTT, CBC, BMP, HS TROP #### [address] AST [Catalytic activity/Vol] 30 U/L Normal 13-39 [facility] Comment on above: Performed By: #### C K, PT, BNP, PTT, CBC, BMP, HS TROP #### [address] Bilirubin [Mass/Vol] 1.1 mg/dL High 0.3-1.0 [facility] Comment on above: Performed By: #### C K, PT, BNP, PTT, CBC, BMP, HS TROP #### [address] Bilirubin,Indirect 0.9 mg/dL Normal [facility] Comment on above: Performed By: #### C K, PT, BNP, PTT, CBC, BMP, HS TROP #### [address] Bilirubin.indirect [Mass/Vol] 0.20 mg/dL High 0.03-0.18 [facility] Comment on above: Performed By: #### C K, PT, BNP, PTT, CBC, BMP, HS TROP #### [address] Globulin (S) [Mass/Vol] 3.5 g/dL Normal [facility] Comment on above: Performed By: #### C K, PT, BNP, PTT, CBC, BMP, HS TROP #### [address] Protein [Mass/Vol] 8.9 g/dL Normal 6.4-8.9 [facility] Comment on above: Performed By: #### C K, PT, BNP, PTT, CBC, BMP, HS TROP #### [address] Lipaseon 10-28-2024 Lipase [Catalytic activity/Vol] 19.0 U/L Normal 11.0-82.0 [facility] Comment on above: Result Comment: PERF ORMED BY: [place] [address] PATHOLOGIST MARKET INVESTIGATOR IDANIA GODOY M.D. Performed By: #### C K, PT, BNP, PTT, CBC, BMP, HS TROP #### [address] Potassiumon 10-28-2024 Potassium [Moles/Vol] 2.9 mmol/L Off scale low 3.5-5.1 [facility] Comment on above: Result Comment: Crit ical Result Called to and read back by: RYLAN BELL at: 10/28/2024 23:09:11 by:MO PERFORMED BY: [place] [address] PATHOLOGIST MARKET INVESTIGATOR IDANIA GODOY M.D. Performed By: #### C K, PT, BNP, PTT, CBC, BMP, HS TROP #### [facility] [address] [place] [address] Urine Cultureon 10-28-2024 Bacteria identified Cx Nom (U) 75,000 colonies/ml mixed bacterial skin contaminants 2 Days PERFORMED BY: [place] [address] PATHOLOGIST MARKET INVESTIGATOR IDANIA GODOY M.D. Normal [facility] Comment on above: Performed By: #### C UU, UHCG, ADDONUAPLUS #### [facility] [address] [place] [address] Activated partial thrombopla stin time (aPTT) in platelet poor plasma by coagulation aOrdered By: Ania Watson on 08-03-2024 aPTT Coag (PPP) [Time] 24.7 s Low 25.1-36.5 [facility] Comment on above: A hematocrit value g reater than 55% may lead to inaccurate results in coagulation testing. Patients having hematocrit values >55% require a special collection tube for coagulation studies. Please contact the laboratory at [phone] for redraw instructions. BNP ser/plasOrdered By: Reji Watson on 08-03-2024 Natriuretic peptide B (Bld) [Mass/Vol] 19.0 pg/mL Normal 5-100 [facility] Comment on above: Order Comment: PT WA NTS TO WAIT UNTIL SHE IS TAKEN BACK INTO ER AND THEY START A IV ON HER,KAH, 2100 Result Comment: PERF ORMED BY: [place] [address] PATHOLOGIST MARKET INVESTIGATOR NAY SARKAR M.D. Performed By: #### C K, PT, BNP, PTT, CBC, BMP, HS TROP #### [facility] [address] Basic Metabolic Panelon Creatinine Clr Calc Pharmacy 154.09 Normal [facility] Comment on above: Order Comment: PT WA NTS TO WAIT UNTIL SHE IS TAKEN BACK INTO ER AND THEY START A IV ON HER2099 Result Comment: PERF ORMED BY: [place] [address] PATHOLOGIST MARKET INVESTIGATOR NAY SARKAR M.D. Performed By: #### C K, PT, BNP, PTT, CBC, BMP, HS TROP #### [address] GFR/1.73 sq M.predicted MDRD (S/P/Bld) [Vol rate/Area] mL/min/{1.73_m2} Normal [facility] Comment on above: Order Comment: PT WA NTS TO WAIT UNTIL SHE IS TAKEN BACK INTO ER AND THEY START A IV ON HER2099 Performed By: #### C K, PT, BNP, PTT, CBC, BMP, HS TROP #### [address] Calcium [Mass/volume] in Ser um or PlasmaOrdered By: Ania Watson on 08-03-2024 Calcium [Mass/Vol] 9.6 mg/dL Normal 8.6-10.3 [facility] Comment on above: Order Comment: PT WA NTS TO WAIT UNTIL SHE IS TAKEN BACK INTO ER AND THEY START A IV ON HER2099 Performed By: #### C K, PT, BNP, PTT, CBC, BMP, HS TROP #### [facility] [address] [place] [address] [place] Carbon dioxide, total [Moles /volume] in Serum or PlasmaOrdered By: Ania Watson on 08-03-2024 CO2 [Moles/Vol] 18.5 mmol/L Low 21.0-31.0 [facility] Comment on above: Order Comment: PT WA NTS TO WAIT UNTIL SHE IS TAKEN BACK INTO ER AND THEY START A IV ON HER,2099 Performed By: #### C K, PT, BNP, PTT, CBC, BMP, HS TROP #### [facility] [address] Chloride [Moles/volume] in [place] or PlasmaOrdered By: Ania Watson on 08-03-2024 Chloride [Moles/Vol] 99 mmol/L Normal 98-107 [facility] Comment on above: Order Comment: PT WA NTS TO WAIT UNTIL SHE IS TAKEN BACK INTO ER AND THEY START A IV ON HER,2099 Performed By: #### C K, PT, BNP, PTT, CBC, BMP, HS TROP #### [facility] [address] [place] [address] Complete Blood Count Auto Di ffon 08-03-2024 Basophils (Bld) [#/Vol] 0.1 10*3/uL Normal 0.0-0.2 [facility] Comment on above: Order Comment: PT WA NTS TO WAIT UNTIL SHE IS TAKEN BACK INTO ER AND THEY START A IV ON HER,2099 Result Comment: PERF ORMED BY: [place] [address] PATHOLOGIST MARKET INVESTIGATOR NAY SARKAR M.D. Performed By: #### C K, PT, BNP, PTT, CBC, BMP, HS TROP #### [facility] [address] [place] [address] Basophils/100 WBC (Bld) 0.4 % Normal . [facility] Comment on above: Order Comment: PT WA NTS TO WAIT UNTIL SHE IS TAKEN BACK INTO ER AND THEY START A IV ON HER,2099 Performed By: #### C K, PT, BNP, PTT, CBC, BMP, HS TROP #### [facility] [address] Eosinophils (Bld) [#/Vol] 0.2 10*3/uL Normal 0.0-0.45 [facility] Comment on above: Order Comment: PT WA NTS TO WAIT UNTIL SHE IS TAKEN BACK INTO ER AND THEY START A IV ON HER,KAH, 2100 Performed By: #### C K, PT, BNP, PTT, CBC, BMP, HS TROP #### [address] Eosinophils/100 WBC (Bld) 0.9 % Normal . [facility] Comment on above: Order Comment: PT WA NTS TO WAIT UNTIL SHE IS TAKEN BACK INTO ER AND THEY START A IV ON HER,2099 Performed By: #### C K, PT, BNP, PTT, CBC, BMP, HS TROP #### [address] Erythrocyte distribution width (RBC) [Ratio] 13.2 % Normal 11.9-15.3 [facility] Comment on above: Order Comment: PT WA NTS TO WAIT UNTIL SHE IS TAKEN BACK INTO ER AND THEY START A IV ON HER,, 2099 Performed By: #### C K, PT, BNP, PTT, CBC, BMP, HS TROP #### [address] Hematocrit (Bld) [Volume fraction] 43.6 % Normal 34.0-46.4 [facility] Comment on above: Order Comment: PT WA NTS TO WAIT UNTIL SHE IS TAKEN BACK INTO ER AND THEY START A IV ON HER,2099 Performed By: #### C K, PT, BNP, PTT, CBC, BMP, HS TROP #### [address] Hemoglobin (Bld) [Mass/Vol] 14.8 g/dL Normal 11.8-15.4 [facility] Comment on above: Order Comment: PT WA NTS TO WAIT UNTIL SHE IS TAKEN BACK INTO ER AND THEY START A IV ON HER,, 2099 Performed By: #### C K, PT, BNP, PTT, CBC, BMP, HS TROP #### [place] [address] [place] Lymphocytes (Bld) [#/Vol] 2.5 10*3/uL Normal 1.00-4.8 [facility] Comment on above: Order Comment: PT WA NTS TO WAIT UNTIL SHE IS TAKEN BACK INTO ER AND THEY START A IV ON HER,, 2099 Performed By: #### C K, PT, BNP, PTT, CBC, BMP, HS TROP #### [address] Lymphocytes/100 WBC (Bld) 13.0 % Normal . [facility] Comment on above: Order Comment: PT WA NTS TO WAIT UNTIL SHE IS TAKEN BACK INTO ER AND THEY START A IV ON HER,, 2099 Performed By: #### C K, PT, BNP, PTT, CBC, BMP, HS TROP #### [address] MCH (RBC) [Entitic mass] 28.4 pg Normal 24.7-34.3 [facility] Comment on above: Order Comment: PT WA NTS TO WAIT UNTIL SHE IS TAKEN BACK INTO ER AND THEY START A IV ON HER,, 2099 Performed By: #### C K, PT, BNP, PTT, CBC, BMP, HS TROP #### [address] MCV (RBC) [Entitic vol] 83.8 fL Normal 80-100 [facility] Comment on above: Order Comment: PT WA NTS TO WAIT UNTIL SHE IS TAKEN BACK INTO ER AND THEY START A IV ON HER,, 2099 Performed By: #### C K, PT, BNP, PTT, CBC, BMP, HS TROP #### [address] Mean Corpuscular HGB Conc 33.9 g/dL Normal 32.0-35.0 [facility] Comment on above: Order Comment: PT WA NTS TO WAIT UNTIL SHE IS TAKEN BACK INTO ER AND THEY START A IV ON HER,, 2099 Performed By: #### C K, PT, BNP, PTT, CBC, BMP, HS TROP #### [address] Monocytes (Bld) [#/Vol] 1.6 10*3/uL High 0.0-0.8 [facility] Comment on above: Order Comment: PT WA NTS TO WAIT UNTIL SHE IS TAKEN BACK INTO ER AND THEY START A IV ON HER,, 2099 Performed By: #### C K, PT, BNP, PTT, CBC, BMP, HS TROP #### [place] [address] [place] Monocytes/100 WBC (Bld) 18.96 % Normal 0.00-20.00 [facility] Comment on above: Order Comment: PT WA NTS TO WAIT UNTIL SHE IS TAKEN BACK INTO ER AND THEY START A IV ON HER,KAH, 2100 Performed By: #### C K, PT, BNP, PTT, CBC, BMP, HS TROP #### [place] [address] [place] Monocytes/100 WBC (Bld) 8.1 % Normal . [facility] Comment on above: Order Comment: PT WA NTS TO WAIT UNTIL SHE IS TAKEN BACK INTO ER AND THEY START A IV ON HER,, 2099 Performed By: #### C K, PT, BNP, PTT, CBC, BMP, HS TROP #### [place] [address] [place] Neutrophils (Bld) [#/Vol] 15.0 10*3/uL High 1.8-7.7 [facility] Comment on above: Order Comment: PT WA NTS TO WAIT UNTIL SHE IS TAKEN BACK INTO ER AND THEY START A IV ON HER,, 2099 Performed By: #### C K, PT, BNP, PTT, CBC, BMP, HS TROP #### [place] [address] [place] Neutrophils/100 WBC (Bld) 77.6 % Normal . [facility] Comment on above: Order Comment: PT WA NTS TO WAIT UNTIL SHE IS TAKEN BACK INTO ER AND THEY START A IV ON HER,, 2099 Performed By: #### C K, PT, BNP, PTT, CBC, BMP, HS TROP #### [place] [address] [place] NRBC% 0.3 /100{WBC} Normal 0-0.5 [facility] Comment on above: Order Comment: PT WA NTS TO WAIT UNTIL SHE IS TAKEN BACK INTO ER AND THEY START A IV ON HER,KAH, 2100 Performed By: #### C K, PT, BNP, PTT, CBC, BMP, HS TROP #### [place] [address] [place] Platelet mean volume (Bld) [Entitic vol] 8.6 fL Normal 6.3-10.7 [facility] Comment on above: Order Comment: PT WA NTS TO WAIT UNTIL SHE IS TAKEN BACK INTO ER AND THEY START A IV ON HER,, 2099 Performed By: #### C K, PT, BNP, PTT, CBC, BMP, HS TROP #### [facility] [address] Platelets (Bld) [#/Vol] 282 10*3/uL Normal 150-450 [facility] Comment on above: Order Comment: PT WA NTS TO WAIT UNTIL SHE IS TAKEN BACK INTO ER AND THEY START A IV ON HER,, 2099 Performed By: #### C K, PT, BNP, PTT, CBC, BMP, HS TROP #### [facility] [address] RBC (Bld) [#/Vol] 5.20 10*6/uL High 3.60-5.00 [facility] Comment on above: Order Comment: PT WA NTS TO WAIT UNTIL SHE IS TAKEN BACK INTO ER AND THEY START A IV ON HER,, 2099 Performed By: #### C K, PT, BNP, PTT, CBC, BMP, HS TROP #### [facility] [address] WBC (Bld) [#/Vol] 19.4 10*3/uL High 3.8-11.6 [facility] Comment on above: Order Comment: PT WA NTS TO WAIT UNTIL SHE IS TAKEN BACK INTO ER AND THEY START A IV ON HER,, 2099 Performed By: #### C K, PT, BNP, PTT, CBC, BMP, HS TROP #### [facility] [address] Creatine kinase [Enzymatic a ctivity/volume] in Serum or PlasmaOrdered By: Ania Watson on 08-03-2024 CK [Catalytic activity/Vol] 33 U/L Normal 30-223 [facility] Comment on above: Order Comment: PT WA NTS TO WAIT UNTIL SHE IS TAKEN BACK INTO ER AND THEY START A IV ON HER,, 2099 Performed By: #### C K, PT, BNP, PTT, CBC, BMP, HS TROP #### [facility] [address] [place] [id number] [facility] Creatinine [Mass/volume] in Serum or PlasmaOrdered By: Ania Watson on 08-03-2024 Creatinine [Mass/Vol] 0.61 mg/dL Normal 0.60-1.20 [facility] Comment on above: Order Comment: PT WA NTS TO WAIT UNTIL SHE IS TAKEN BACK INTO ER AND THEY START A IV ON HER,KAH, 2100 Performed By: #### C K, PT, BNP, PTT, CBC, BMP, HS TROP #### [facility] [address] [place] [id number] [facility] ECG 12 lead ECGon 08-03-2024 ECG 12 lead ECG [facility] Main [place] [address] [place] [address] Electrocardiograph Report Signed Patient: Pili Parikh MR#: [id number] : 2005 Acct:[id number] Age/Sex: 19 / F ADM Date: 08/03/24 Loc: ER Room: Type: [facility] ER Attending Dr: Ordering Provider: Ania [...] wave abnormality Confirmed by Ania Watson MD ([id number]) on 08/04/2024 1:34:37 AM Referred By: Electronically Signed By: Ania Watson MD Transcribed By: MUS Signed By Ania Watson MD 06/20 0134 Normal [facility] Glucose [Mass/volume] in Ser um or PlasmaOrdered By: Ania Watson on 08-03-2024 Glucose [Mass/Vol] 91 mg/dL Normal 70-100 [facility] Comment on above: ADA recommended refe rence rangeRandom Glucose Reference Range is dependent on time and content of last meal. Glucose of more than 200 mg/dL in a nonstressed, ambulatory subject supports the diagnosis of Diabetes Mellitus. Order Comment: PT WA NTS TO WAIT UNTIL SHE IS TAKEN BACK INTO ER AND THEY START A IV ON HER,2099 Result Comment: [place] Glucose Reference Range is dependent on time and content of last meal. Glucose of more than 200 mg/dL in a nonstressed, ambulatory subject supports the diagnosis of Diabetes Mellitus. ADA recommended reference range Performed By: #### C K, PT, BNP, PTT, CBC, BMP, HS TROP #### [facility] [address] [place] [address] [place] INR in Platelet poor plasma by Coagulation assayOrdered By: nAia Watson on 08-03-2024 INR Coag (PPP) [Relative time] 1.2 {INR} Normal [facility] Comment on above: INR Therapeutic [...] START A IV ON HER2099 Result Comment: INR Therapeutic Range A) Pre- [...] valves: 3 - 4.5 Performed By: #### C K, PT, BNP, PTT, CBC, BMP, HS TROP #### [facility] [address] [place] [address] [facility] No Panel InformationOrdered By: Ania Watson on 08-03-2024 Estimated GFR (CKD-EPI) > 60.0 mL/Min [facility] Creatinine Clearance (Chem 154.09 [facility] Partial Thromboplastin Timeo n 08-03-2024 aPTT Coag (Bld) [Time] 24.7 s Low 25.1-36.5 [facility] Comment on above: Order Comment: PT WA NTS TO WAIT UNTIL SHE IS TAKEN BACK INTO ER AND THEY START A IV ON HER,, 2099 Result Comment: A he matocrit value greater than 55% may lead to inaccurate results in coagulation testing. Patients having hematocrit values >55% require a special collection tube for coagulation studies. Please contact the laboratory at [phone] for redraw instructions. PERFORMED BY: [place] [address] PATHOLOGIST MARKET INVESTIGATOR NAY SARKAR M.D. Performed By: #### C K, PT, BNP, PTT, CBC, BMP, HS TROP #### [facility] [address] [place], [place] [id number] [facility] Potassium [Moles/volume] in Serum or PlasmaOrdered By: Ania Watson on 08-03-2024 Potassium [Moles/Vol] 3.5 mmol/L Normal 3.5-5.1 [facility] Comment on above: Hemolysis is present at [...] if redraw is required Performed By: #### C K, PT, BNP, PTT, CBC, BMP, HS TROP #### [facility] [address] [place], [place] [id number] [facility] Prothrombin time (PT)Ordered By: Ania Watson on 08-03-2024 PT Coag (PPP) [Time] 13.3 s High 9.0-12.9 [facility] Comment on above: A hematocrit value g reater than 55% may lead to inaccurate results in coagulation testing. Patients having hematocrit values >55% require a special collection tube for coagulation studies. Please contact the laboratory at [phone] for redraw instructions. Order Comment: PT WA NTS TO WAIT UNTIL SHE IS TAKEN BACK INTO ER AND THEY START A IV ON HER,2099 Result Comment: A he matocrit value greater than 55% may lead to inaccurate results in coagulation testing. Patients having hematocrit values >55% require a special collection tube for coagulation studies. Please contact the laboratory at [phone] for redraw instructions. Performed By: #### C K, PT, BNP, PTT, CBC, BMP, HS TROP #### [facility] [address] [place] [id number] [facility] Serum or plasma anion gap de terminationOrdered By: Ania Watson on 08-03-2024 Anion gap [Moles/Vol] 20.0 mmol/L High 6.0-15.0 [facility] Comment on above: Order Comment: PT WA NTS TO WAIT UNTIL SHE IS TAKEN BACK INTO ER AND THEY START A IV ON HER,2099 Performed By: #### C K, PT, BNP, PTT, CBC, BMP, HS TROP #### [place] [id number] [place] Sodium [Moles/volume] in Ser um or PlasmaOrdered By: Ania Watson on 08-03-2024 Sodium [Moles/Vol] 134 mmol/L Low 136-145 [facility] Comment on above: Order Comment: PT WA NTS TO WAIT UNTIL SHE IS TAKEN BACK INTO ER AND THEY START A IV ON HER,2099 Performed By: #### C K, PT, BNP, PTT, CBC, BMP, HS TROP #### [place] [id number] [place] Troponin I High Sensitivityo n 08-03-2024 Troponin I High Sensitivity 7.0 pg/mL Normal 0.0-15.0 [facility] Comment on above: Order Comment: PT WA NTS TO WAIT UNTIL SHE IS TAKEN BACK INTO ER AND THEY START A IV ON HER,, 2099 Result Comment: PERF ORMED BY: [place] [address] PATHOLOGIST MARKET INVESTIGATOR NAY SARKAR M.D. Performed By: #### C K, PT, BNP, PTT, CBC, BMP, HS TROP #### [place] [id number] [facility] Troponin I.cardiac [Mass/vol ume] in Serum or Plasma by Detection limit <= 0.01 ng/Ordered By: Ania Watson on 08-03-2024 Troponin I.cardiac DL <= 0.01 ng/mL [Mass/Vol] 7.0 pg/mL 0.0-15.0 [facility] Urea nitrogen [Mass/volume] in Serum or PlasmaOrdered By: Ania Walter on 08-03-2024 Urea nitrogen [Mass/Vol] 20 mg/dL Normal 7-25 [facility] Comment on above: Order Comment: PT WA NTS TO WAIT UNTIL SHE IS TAKEN BACK INTO ER AND THEY START A IV ON HER,, 2099 Performed By: #### C K, PT, BNP, PTT, CBC, BMP, HS TROP #### [facility] [address] B hCG Qualon 08-01-2024 Beta HCG ( test) Ql Negative Normal [facility] Comment on above: Performed By: #### 2 [id number] #### [facility] [address] [place] [address] BMPon 08-01-2024 Anion gap [Moles/Vol] 14 mmol/L Normal 6-16 [facility] Comment on above: Performed By: #### 2 [id number] #### [facility] [address] [place] [address] Calcium [Mass/Vol] 9.7 mg/dL Normal 8.9-11.1 [facility] Comment on above: Performed By: #### 2 [id number] #### [facility] [address] [place] [address] Chloride [Moles/Vol] 102 mmol/L Normal 101-111 [facility] Comment on above: Performed By: #### 2 [id number] #### [facility] [address] [place] [address] CO2 [Moles/Vol] 24 mmol/L Normal 21-31 [facility] Comment on above: Performed By: #### 2 [id number] #### [facility] [address] [place] [address] Creatinine [Mass/Vol] 0.7 mg/dL Normal 0.5-1.3 [facility] Comment on above: Performed By: #### 2 [id number] #### [facility] [address] [place] [address] Glucose [Mass/Vol] 96 mg/dL Normal 55-199 [facility] Comment on above: Performed By: #### 2 [id number] #### [facility] [address] [place] [address] Potassium [Moles/Vol] 3.3 mmol/L Low 3.5-5.3 [facility] Comment on above: Performed By: #### 2 [id number] #### [facility] [address] [place] [address] Sodium [Moles/Vol] 137 mmol/L Normal 135-145 [facility] Comment on above: Performed By: #### 2 [id number] #### [facility] [address] [place] [address] Urea nitrogen [Mass/Vol] 18 mg/dL Normal 5-21 [facility] Comment on above: Performed By: #### 2 [id number] #### [facility] [address] [place] [address] Urea nitrogen/Creatinine [Mass ratio] 26 No Units High 10-20 [facility] Comment on above: Performed By: #### 2 [id number] #### [facility] [address] [place] [address] CBC w/ Auto Diffon 4 Basophils/100 WBC (Bld) 0.3 % Normal 0.0-2.0 [facility] Comment on above: Performed By: #### 2 [id number] #### [facility] [address] [place] [address] Basophils/Leukocytes Auto (Bld) [Pure # fraction] 0.1 E9/L Normal 0.0-0.2 [facility] Comment on above: Performed By: #### 2 [id number] #### [facility] [address] [place] [address] Eosinophils (Bld) [#/Vol] 0.1 E9/L Normal 0.0-0.5 [facility] Comment on above: Performed By: #### 2 [id number] #### [facility] [address] [place] [address] Eosinophils/100 WBC (Bld) 0.4 % Normal 0.0-8.0 [facility] Comment on above: Performed By: #### 2 [id number] #### [facility] [address] [place] [address] Erythrocyte distribution width (RBC) [Ratio] 13.3 % Normal 10.9-14.2 [facility] Comment on above: Performed By: #### 2 [id number] #### [facility] [address] [place] [address] Hematocrit (Bld) [Volume fraction] 43.9 % Normal 34.0-46.0 [facility] Comment on above: Performed By: #### 2 [id number] #### [facility] [address] [place] [address] Hemoglobin (Bld) [Mass/Vol] 14.5 g/dL Normal 12.0-16.0 [facility] Comment on above: Performed By: #### 2 [id number] #### [facility] [address] [place] [address] Lymphocytes (Bld) [#/Vol] 2.3 E9/L Normal 1.0-4.0 [facility] Comment on above: Performed By: #### 2 [id number] #### [facility] [address] [place] [address] Lymphocytes/100 WBC (Bld) 13.7 % Low 14.0-50.0 [facility] Comment on above: Performed By: #### 2 [id number] #### [facility] [address] [place] [address] MCH (RBC) [Entitic mass] 28.3 pg Normal 27.0-34.0 [facility] Comment on above: Performed By: #### 2 117661 #### [facility] [address] [place] [address] MCHC (RBC) [Mass/Vol] 33.0 g/dL Normal 31.4-36.0 [facility] Comment on above: Performed By: #### 2 079059 #### [facility] [address] [place] [address] MCV (RBC) [Entitic vol] 85.8 fL Normal 80.0-100.0 [facility] Comment on above: Performed By: #### 2 135984 #### [facility] [address] [place] [address] Monocytes (Bld) [#/Vol] 1.2 E9/L High 0.2-1.0 [facility] Comment on above: Performed By: #### 2 [id number] #### [facility] [address] [place] [address] Neutrophils (Bld) [#/Vol] 13.1 E9/L High 2.0-7.5 [facility] Comment on above: Performed By: #### 2 760468 #### [facility] [address] [place] [address] Neutrophils/100 WBC (Bld) 78.5 % High 36.0-75.0 [facility] Comment on above: Performed By: #### 2 094459 #### [facility] [address] [place] [address] Platelet mean volume (Bld) [Entitic vol] 8.2 fL Normal 6.4-10.8 [facility] Comment on above: Performed By: #### 2 474153 #### [facility] [address] [place] [address] Platelets (Bld) [#/Vol] 246.0 E9/L Normal 150.0-500. 0 [facility] Comment on above: Performed By: #### 2 297733 #### [facility] [address] [place] [address] RBC (Bld) [#/Vol] 5.1 E12/L Normal 4.3-5.9 [facility] Comment on above: Performed By: #### 2 [id number] #### [facility] [address] [place] [address] WBC corrected for nucl RBC Auto (Bld) [#/Vol] 16.7 E9/L High 4.0-11.0 [facility] Comment on above: Result Comment: Sarahi pheral smear review performed. Performed By: #### 2 365073 #### [facility] [address] [place] [address] ED Clinical Summaryon 2023 ED Clinical Summary ED Clinical Summary [address] [address] ED Clinical Summary Person Information [facility]: [facility] Age[facility] 19 Years : 2005 Sex: Female Language: Welsh PCP: MODESTA CHAND CNP Marital Status: Single [...] 12:09:48 08/01/2024 12:09:48 08/01/2024 12:09:48 ADDRESS: [address] [facility] [id number] PHYS DOC NOTES: MEDICAL INFORMATION: Prescriptions Given: New Medications [facility]/pharmacy #[id number], [address], [place] [id number], [phone] potassium chloride (potassium chloride 20 mEq ER [...] Follow up: With: Address: When: MODESTA CHAND [address] [place] [phone] Business (1) In 3 days 08/04/2024 Comments: Make sure to fill the prescriptions that was prescribed from [place]. Fill the new prescription for potassium. Follow-up with your primary doctor as discussed. Return to the emergency room if your vomiting recurs, abdominal pain recurs or any new symptoms. DIAGNOSIS: 1:Vomiting and diarrhea; 2:Hypokalemia; 3:Leukocytosis; Diarrhea, unspecified Normal [facility] ED Note-Physicianon 08-01-20 ED Note-Physician ED Note-Physician Basic Information Time Seen: August Bermudez M.D. 08/01/2024 09:27 Chief Complaint just left [facility], seen multiple times for n/v lightheaded. hx cyclic vomiting, state its not that. has medication at [facility] but wanted to come here instead [...] any sick contact. The patient was at [facility] and they did send medication to [facility] however she feels she is dehydrated. [...] and Complexity of Problems Differential Diagnosis: [] [facility] Data External documents reviewed: [] My [...] instructed to fill the prescription given by Tate and filled a new prescription for potassium. [...] day(s), # 4 tab(s), Refills(s) 0, Pharmacy: [facility]/pharmacy #[id number], 157, cm, 08/01/24 9:34:00 EDT, Height/Length Dosing, [...] Disposition Dis (more content not included)... Normal [facility] Comment on above: Result Comment: Elec tronically Signed By: August Bermudez M.D.\.br\Date and Time Signed: 08/01/24 11:58 EDT ED Patient Summaryon 024 ED Patient Summary ED Patient Summary [place] [id number] Patient Discharge Instructions Person Information Name: PILI PARIKH Age: 19 Years Arrival Date: 08/01/2024 09:23:00 Discharge Diagnosis: 1:Vomiting and diarrhea; 2:Hypokalemia; 3:Leukocytosis; Diarrhea, unspecified Primary Care Physician: MODESTA CHAND CNP Provider Information Primary Provider: August Bermudez M.D. Advanced Typewriter Tester:None The exam and treatment you received in the Emergency Department were for an urgent problem and are not intended as complete care. It is important that you follow up with a doctor, nurse practitioner, or physician?s clerical dentist assistant for ongoing care. If your symptoms become worse or you do not improve as expected and you are unable to reach your usual health care provider, you should return to the Emergency Department. We are available 24 hours a day. PLII PARIKH has been given the following list of patient education materials, prescriptions and follow-up instructions: Follow-up Instructions: With: Address: When: MODESTA CHAND [address] [place] [phone] Business (1) In 3 days 08/04/2024 Comments: Make sure to fill the prescriptions that was prescribed from [place]. Fill the new prescription for potassium. Follow-up [...] opioids can be used to help relieve pqbrnmoa-es-eiqqdi pain and are often prescribed following a [...] the to (more content not included)... Normal [facility] Hep Func Panelon 08-01-2024 Albumin [Mass/Vol] 5.1 g/dL High 3.3-5.0 [facility] Comment on above: Performed By: #### 2 [id number] #### [facility] [address] [place] [address] Albumin/Globulin (S) [Mass conc ratio] 1.7 Normal 1.1-2.2 [facility] Comment on above: Performed By: #### 2 467546 #### [facility] [address] [place] [address] ALP [Catalytic activity/Vol] 75 Int._Unit/L Normal 21-98 [facility] Comment on above: Performed By: #### 2 778603 #### [facility] [address] [place] [address] ALT No additional P-5'-P [Catalytic activity/Vol] 45 Int._Unit/L Normal 6-46 [facility] Comment on above: Performed By: #### 2 747827 #### [facility] [address] [place] [address] AST [Catalytic activity/Vol] 25 Int._Unit/L Normal 5-43 [facility] Comment on above: Performed By: #### 2 705871 #### [facility] [address] [place] [address] Bilirubin [Mass/Vol] 0.9 mg/dL Normal 0.0-1.1 [facility] Comment on above: Performed By: #### 2 077634 #### [facility] [address] [place] [address] Bilirubin.direct [Mass/Vol] 0.1 mg/dL Normal 0.0-0.4 [facility] Comment on above: Performed By: #### 2 738504 #### [facility] [address] [place] [address] Bilirubin.indirect [Mass or moles/Vol] 0.8 mg/dL Normal 0.1-0.9 [facility] Comment on above: Performed By: #### 2 331159 #### [facility] [address] [place] [address] Globulin (S) [Mass/Vol] 3.0 g/dL Normal 1.4-4.0 [facility] Comment on above: Performed By: #### 2 958115 #### [facility] [address] [place] [address] Protein [Mass/Vol] 8.1 g/dL High 6.0-7.8 [facility] Comment on above: Performed By: #### 2 716369 #### [facility] [address] [place] [address] Lipase Levelon 08-01-2024 Lipase [Catalytic activity/Vol] 27 U/L Normal 13-58 [facility] Comment on above: Performed By: #### 2 431396 #### [facility] [address] [place] [address] Magnesiumon 08-01-2024 Magnesium [Mass/Vol] 2.2 mg/dL Normal 1.3-2.4 [facility] Comment on above: Performed By: #### 2 903490 #### [facility] [address] [place] [address] PT & PTTon 08-01-2024 aPTT Coag (PPP) [Time] 31.2 second(s) Normal 25.1-36.5 [facility] Comment on above: Result Comment: [...] obtained from a study by britt Youssef al. prepared from 1437 samples obtained at 7 different centers using the same coagulation reagent and instrumentation as [facility]. Currently there are no coagulation studies available worldwide for children to 14 days, and no normal ranges. Heparin therapeutic range (represented by Anti-Factor Xa activity of 0.2 - 0.4 U/mL) corresponds to PTT of 56.6 - 109.0 sec. Performed By: #### 1 [id number] #### [facility] [address] [place] [address] INR Coag (PPP) [Relative time] 1.11 {INR} Invalid Interpretation Code [facility] Comment on above: Result Comment: INR results are specifically intended to assess patients stabilized on long-term Anticoagulation therapy suggested INR?s ?Less Intensive Anticoagulation? 2.0 ? 3.0 Conventional Range 3.0 ? 4.5 Performed By: #### 1 [id number] #### [facility] [address] [place] [address] PT Coag (PPP) [Time] 12.5 second(s) Normal 9.4-12.5 [facility] Comment on above: Result Comment: [...] the same coagulation reagent and instrumentation as [facility]. Currently there are no coagulation studies available worldwide for children to 14 days, and no normal ranges. Performed By: #### 1 [id number] #### [facility] [address] [place] [address] Troponin 0 Hr.on 08-01-2024 Troponin HS 5.20 pg/mL Low 10.10-27.1 0 [facility] Comment on above: Result Comment: The 95% CI (Confidence Interval) PPV (Positive Predictive Value) for myocardial infarction in females is 38 pg/mL, in males 51 pg/mL. The results should be used in conjunction with clinical conditions of myocardial infarction. (Access High Sensitivity Troponin I Instructions For Use, Sugar Redfield, June 2018) Performed By: #### 1 [id number] #### [facility] [address] [place] [address] eGFRon 08-01-2024 eGFR 126 mL/min/1.73 m2 Normal >=59 [facility] Comment on above: Order Comment: Order added by Discern Expert. Performed By: #### 1 [id number] #### [facility] [address] [place] [address] BMPon 07-30-2024 Anion gap [Moles/Vol] 13 mmol/L Normal 6-16 [facility] Comment on above: Performed By: #### 2 176380 #### [facility] [address] [place] [address] Calcium [Mass/Vol] 9.4 mg/dL Normal 8.9-11.1 [facility] Comment on above: Performed By: #### 2 123415 #### [facility] [address] [place] [address] Chloride [Moles/Vol] 107 mmol/L Normal 101-111 [facility] Comment on above: Performed By: #### 2 160530 #### [facility] [address] [place] [address] CO2 [Moles/Vol] 25 mmol/L Normal 21-31 [facility] Comment on above: Performed By: #### 2 581134 #### [facility] [address] [place] [address] Creatinine [Mass/Vol] 0.8 mg/dL Normal 0.5-1.3 [facility] Comment on above: Performed By: #### 2 146084 #### [facility] [address] [place] [address] Glucose [Mass/Vol] 89 mg/dL Normal 55-199 [facility] Comment on above: Performed By: #### 2 089040 #### [facility] [address] [place] [address] Potassium [Moles/Vol] 3.6 mmol/L Normal 3.5-5.3 [facility] Comment on above: Performed By: #### 2 509735 #### [facility] [address] [place] [address] Sodium [Moles/Vol] 141 mmol/L Normal 135-145 [facility] Comment on above: Performed By: #### 2 018620 #### [facility] [address] [place] [address] Urea nitrogen [Mass/Vol] 19 mg/dL Normal 5-21 [facility] Comment on above: Performed By: #### 2 922180 #### [facility] [address] [place] [address] Urea nitrogen/Creatinine [Mass ratio] 24 No Units High 10-20 [facility] Comment on above: Performed By: #### 2 496228 #### [facility] [address] [place] [address] CBC w/ Auto Diffon 4 Basophils/100 WBC (Bld) 0.4 % Normal 0.0-2.0 [facility] Comment on above: Performed By: #### 2 773835 #### [facility] [address] [place] [address] Basophils/Leukocytes Auto (Bld) [Pure # fraction] 0.1 E9/L Normal 0.0-0.2 [facility] Comment on above: Performed By: #### 2 994954 #### [facility] [address] [place] [address] Eosinophils (Bld) [#/Vol] 0.1 E9/L Normal 0.0-0.5 [facility] Comment on above: Performed By: #### 2 473555 #### [facility] [address] [place] [address] Eosinophils/100 WBC (Bld) 0.5 % Normal 0.0-8.0 [facility] Comment on above: Performed By: #### 2 205020 #### [facility] [address] [place] [address] Erythrocyte distribution width (RBC) [Ratio] 13.2 % Normal 10.9-14.2 [facility] Comment on above: Performed By: #### 2 829025 #### [facility] [address] [place] [address] Hematocrit (Bld) [Volume fraction] 39.6 % Normal 34.0-46.0 [facility] Comment on above: Performed By: #### 2 444574 #### [facility] [address] [place] [address] Hemoglobin (Bld) [Mass/Vol] 13.7 g/dL Normal 12.0-16.0 [facility] Comment on above: Performed By: #### 2 823103 #### [facility] [address] [place] [address] Lymphocytes (Bld) [#/Vol] 2.3 E9/L Normal 1.0-4.0 [facility] Comment on above: Performed By: #### 2 861779 #### [facility] [address] [place] [address] Lymphocytes/100 WBC (Bld) 14.1 % Normal 14.0-50.0 [facility] Comment on above: Performed By: #### 2 313807 #### [facility] [address] [place] [address] MCH (RBC) [Entitic mass] 29.4 pg Normal 27.0-34.0 [facility] Comment on above: Performed By: #### 2 212602 #### [facility] [address] [place] [address] MCHC (RBC) [Mass/Vol] 34.5 g/dL Normal 31.4-36.0 [facility] Comment on above: Performed By: #### 2 428897 #### [facility] [address] [place] [address] MCV (RBC) [Entitic vol] 85.3 fL Normal 80.0-100.0 [facility] Comment on above: Performed By: #### 2 458180 #### [facility] [address] [place] [address] Monocytes (Bld) [#/Vol] 1.2 E9/L High 0.2-1.0 [facility] Comment on above: Performed By: #### 2 507579 #### [facility] [address] [place] [address] Neutrophils (Bld) [#/Vol] 12.6 E9/L High 2.0-7.5 [facility] Comment on above: Performed By: #### 2 956222 #### [facility] [address] [place] [address] Neutrophils/100 WBC (Bld) 77.5 % High 36.0-75.0 [facility] Comment on above: Performed By: #### 2 933647 #### [facility] [address] [place] [address] Platelet 260.0 E9/L Normal 150.0-500. 0 [facility] Comment on above: Performed By: #### 2 825487 #### [facility] [address] [place] [address] Platelet mean volume (Bld) [Entitic vol] 8.1 fL Normal 6.4-10.8 [facility] Comment on above: Performed By: #### 2 138854 #### [facility] [address] [place] [address] RBC (Bld) [#/Vol] 4.7 E12/L Normal 4.3-5.9 [facility] Comment on above: Performed By: #### 2 020960 #### [facility] [address] [place] [address] WBC corrected for nucl RBC Auto (Bld) [#/Vol] 16.2 E9/L High 4.0-11.0 [facility] Comment on above: Performed By: #### 2 287366 #### [facility] [address] [place] [address] CHEMISTRYOrdered By: Manish carpio on 07-30-2024 Albumin [...] 2023 ED Clinical Summary ED Clinical Summary [address] [address] ED Clinical Summary Person Information Name: PILI PARIKH[place] Age: 19 Years : 2005 Sex: Female Language: Welsh PCP: MODESTA ARCHIBALD Marital Status: Single Visit [...] 07/30/2024 22:55:49 07/30/2024 22:55:49 07/30/2024 22:55:49 ADDRESS: [address] [place] [id number] PHYS DOC NOTES: MEDICAL INFORMATION: Prescriptions Given: New Medications [facility]/pharmacy #[id number], [address], [place] [id number], [phone] ondansetron (Zofran ODT 4 mg Tab-Dis) 1 Tablets By Mouth every 8 hours as needed Nausea/Vomiting. Refills: 0. Medications to Continue Taking That Have Changed [facility]/pharmacy #[id number], [address], [place] [id number], [phone] START: promethazine (Phenergan 12.5 mg Supp) 1 [...] Vomiting, Adult Follow up: With: Address: When: [place] [phone] Business (1) In 3 days 08/02/2024 DIAGNOSIS: AP (abdominal pain); N&V (nausea and vomiting) Normal [facility] ED Note-Physicianon 07-30-20 ED Note-Physician ED [...] and Complexity of Problems Differential Diagnosis: [] [facility] Data External documents reviewed: N/A My EKG [...] Nausea/Vomiting, # 16 tab(s), Refills(s) 0, [id number], cm, 07/30/24 19:37:00 EDT, Height/Length Dosing, 96.1, kg, 07/30/24 19:37:00 EDT, Weight Dosing promethazine, 12.5 mg = 1 tab(s), Oral, q8hr, PRN as needed for nausea/vomiting, second line, # 10 tab(s), Refills(s) 0, [id number] 157, cm, 07/30/24 19:37:00 EDT, Height/Length Dosing, 96.1, kg, 07/30/24 19:37:00 EDT, Weight Dosing promethazine, 12.5 mg = 1 supp, Rectal, q8hr, PRN as needed for nausea/vomiting, 3rd line, # 6 EA, Refills(s) 0, [id number] 157, cm, 07/30/24 19:37:00 EDT, Height/Length [...] Level Saline Lock Insert Medications Administered Given [id number] [F] 1000 mg + GenDil 100 mL, IV Piggyback famotidine 10 mg/mL IV Lisa, 20 mg, IV Push NS 1000 ml Bolus, 1000 mL, IV [id number] [F] 12.5 mg + Sodium Chloride 0.9% IV Lisa 50 mL [F] 50 mL, IV Piggyback Disposition Plan Discharge Prescription List Prescriptions Phenergan 12.5 mg Supp, 12.5 mg= 1 supp, Rectal, q8hr, PRN promethazine 12.5 mg oral tablet, 12.5 mg= 1 tab(s), Oral, q8hr, PRN Zofran ODT 4 mg Tab-Dis, 4 mg= 1 tab(s), Or (more content not included)... Normal [facility] Comment on above: Result Comment: Elec tronically Signed By: Dustin Villalobos DO\.br\Date and Time Signed: 07/30/24 22:50 EDT ED Patient Summaryon 024 ED Patient Summary ED Patient Summary [place] [id number] Patient Discharge Instructions Person Information Name: PILI PARIKH Age: 19 Years Arrival Date: 07/30/2024 19:26:13 Discharge Diagnosis: AP (abdominal pain); N&V (nausea and vomiting) Primary Care Physician: MODESTA ARCHIBALD Provider Information Primary Provider: Dustin Villalobos DO Advanced Typewriter Tester:None The exam and treatment you received in the Emergency Department were for an urgent problem and are not intended as complete care. It is important that you follow up with a doctor, nurse practitioner, or physician?s clerical dentist assistant for ongoing care. If your symptoms [...] Follow-up Instructions: With: Address: When: FAMILIA CHAND [facility] [place] [phone] Business (1) In 3 days 08/02/2024 In the event that this physician does not participate in your insurance network, please consult with your insurance company to find a nearby participating provider. Patient Education Materials: Nausea and Vomiting, Adult A MESSAGE TO ALL PATIENTS REGARDING OPIOIDS PRESCRIPTION OPIOIDS: WHAT YOU NEED TO KNOW Prescription opioids can be used to help relieve apjfcnhw-km-rjwyty pain and are often prescribed following a [...] be struggling with addiction, tell your health lawn care professional and ask for guidance or call [facility] (more content not included)... Normal [facility] HEMATOLOGYOrdered By: SYSTEM SYSTEM on 07-30-2024 [...] 07-30-2024 Albumin [Mass/Vol] 4.7 g/dL Normal 3.3-5.0 [facility] Comment on above: Performed By: #### 2 [id number] #### [facility] [address] [place] [address] Albumin/Globulin (S) [Mass conc ratio] 1.7 Normal 1.1-2.2 [facility] Comment on above: Performed By: #### 2 572265 #### [facility] [address] [place] [address] ALP [Catalytic activity/Vol] 73 Int._Unit/L Normal 21-98 [facility] Comment on above: Performed By: #### 2 081290 #### [facility] [address] [place] [address] ALT No additional P-5'-P [Catalytic activity/Vol] 46 Int._Unit/L Normal 6-46 [facility] Comment on above: Performed By: #### 2 585617 #### [facility] [address] [place] [address] AST [Catalytic activity/Vol] 24 Int._Unit/L Normal 5-43 [facility] Comment on above: Performed By: #### 2 136901 #### [facility] [address] [place] [address] Bilirubin [Mass/Vol] 0.7 mg/dL Normal 0.0-1.1 [facility] Comment on above: Performed By: #### 2 068748 #### [facility] [address] [place] [address] Bilirubin.direct [Mass/Vol] 0.1 mg/dL Normal 0.0-0.4 [facility] Comment on above: Performed By: #### 2 449893 #### [facility] [address] [place] [address] Bilirubin.indirect [Mass or moles/Vol] 0.6 mg/dL Normal 0.1-0.9 [facility] Comment on above: Performed By: #### 2 [id number] #### [facility] [address] [place] [address] Globulin (S) [Mass/Vol] 2.8 g/dL Normal 1.4-4.0 [facility] Comment on above: Performed By: #### 2 788707 #### [facility] [address] [place] [address] Protein [Mass/Vol] 7.5 g/dL Normal 6.0-7.8 [facility] Comment on above: Performed By: #### 2 942864 #### [facility] [address] [place] [address] Lipase Levelon 07-30-2024 Lipase [Catalytic activity/Vol] 10 U/L Low 13-58 [facility] Comment on above: Performed By: #### 2 714111 #### [facility] [address] [place] [address] Magnesiumon 07-30-2024 Magnesium [Mass/Vol] 2.2 mg/dL Normal 1.3-2.4 [facility] Comment on above: Performed By: #### 2 696227 #### [facility] [address] [place] [address] eGFRon 07-30-2024 eGFR 108 mL/min/1.73 m2 Normal >=59 [facility] Comment on above: Order Comment: Order added by Discern Expert. Performed By: #### 1 [id number] #### [facility] [address] [place] [address] Alanine aminotransferase [En zymatic activity/volume] in Serum or PlasmaOrdered By: Jacinto Benitez on 03-18-2024 ALT [Catalytic activity/Vol] 25 U/L Normal 7-52 [facility] Comment on above: Performed By: #### C K, PT, BNP, PTT, CBC, BMP, HS TROP #### [facility] [address] [place] [address] [place] Albumin [Mass/volume] in Ser um or Plasma by Bromocresol green (BCG) dye binding methoOrdered By: Jacinto Benitez on 03-18-2024 Albumin BCG dye [Mass/Vol] 5.3 g/dL 3.5-5.7 [facility] Alkaline phosphatase [Enzyma tic activity/volume] in Serum or PlasmaOrdered By: Jacinto Benitez on 03-18-2024 ALP [Catalytic activity/Vol] 82 U/L Normal 34-104 [facility] Comment on above: Performed By: #### C K, PT, BNP, PTT, CBC, BMP, HS TROP #### [facility] [address] [place] [address] [place] Aspartate aminotransferase [ Enzymatic activity/volume] in Serum or PlasmaOrdered By: Jacinto Benitez on 03-18-2024 AST [Catalytic activity/Vol] 23 U/L Normal 13-39 [facility] Comment on above: Performed By: #### C K, PT, BNP, PTT, CBC, BMP, HS TROP #### [facility] [address] [place] [address] [place] Automated basophil %Ordered By: Jacinto Benitez on 03-18-2024 Basophils/100 WBC (Bld) 0.4 % Normal . [facility] Comment on above: Performed By: #### C K, PT, BNP, PTT, CBC, BMP, HS TROP #### [address] Automated basophil countOrde red By: Jacinto Benitez on 03-18-2024 Basophils (Bld) [#/Vol] 0.1 10*3/uL Normal 0.0-0.2 [facility] Comment on above: Result Comment: PERF ORMED BY: [place] [address] PATHOLOGIST MARKET INVESTIGATOR NAY SARKAR M.D. Performed By: #### C K, PT, BNP, PTT, CBC, BMP, HS TROP #### [address] Automated blood monocyte cou ntOrdered By: Jacinto Benitez on 03-18-2024 Monocytes (Bld) [#/Vol] 1.4 10*3/uL High 0.0-0.8 [facility] Comment on above: Performed By: #### C K, PT, BNP, PTT, CBC, BMP, HS TROP #### [address] Automated eosinophil %Ordere d By: Jacinto Benitez on 03-18-2024 Eosinophils/100 WBC (Bld) 2.3 % Normal . [facility] Comment on above: Performed By: #### C K, PT, BNP, PTT, CBC, BMP, HS TROP #### [address] Automated eosinophil countOr dered By: Jacinto Benitez on 03-18-2024 Eosinophils (Bld) [#/Vol] 0.4 10*3/uL Normal 0.0-0.45 [facility] Comment on above: Performed By: #### C K, PT, BNP, PTT, CBC, BMP, HS TROP #### [address] Automated monocyte %Ordered By: Jacinto Benitez on 03-18-2024 Monocytes/100 WBC (Bld) 7.6 % Normal . [facility] Comment on above: Performed By: #### C K, PT, BNP, PTT, CBC, BMP, HS TROP #### [facility] [address] Automated neutrophil %Ordere d By: Jacinto Benitez on 03-18-2024 Neutrophils/100 WBC (Bld) 68.8 % Normal . [facility] Comment on above: Performed By: #### C K, PT, BNP, PTT, CBC, BMP, HS TROP #### [facility] [address] Bilirubin.total [Mass/volume ] in Serum or PlasmaOrdered By: Jacinto Benitez on 03-18-2024 Bilirubin [Mass/Vol] 0.9 mg/dL Normal 0.3-1.0 [facility] Comment on above: Performed By: #### C K, PT, BNP, PTT, CBC, BMP, HS TROP #### [address] Calcium [Mass/volume] in Ser um or PlasmaOrdered By: Jacinto Benitez on 03-18-2024 Calcium [Mass/Vol] 10.4 mg/dL High 8.6-10.3 [facility] Comment on above: Performed By: #### C K, PT, BNP, PTT, CBC, BMP, HS TROP #### [address] Carbon dioxide, total [Moles /volume] in Serum or PlasmaOrdered By: Jacinto Benitez on 03-18-2024 CO2 [Moles/Vol] 18.4 mmol/L Low 21.0-31.0 [facility] Comment on above: Performed By: #### C K, PT, BNP, PTT, CBC, BMP, HS TROP #### [address] Chloride [Moles/volume] in [place] or PlasmaOrdered By: Jacinto Benitez on 03-18-2024 Chloride [Moles/Vol] 94 mmol/L Low 98-107 [facility] Comment on above: Performed By: #### C K, PT, BNP, PTT, CBC, BMP, HS TROP #### [place] [address] [place] Choriogonadotropin.beta subu nit [Units/volume] in Serum or PlasmaOrdered By: Jacinto Benitez on 03-18-2024 HCG.beta subunit Qn Negative [facility] Complete Blood Count Auto Di ffon 03-18-2024 Mean Corpuscular HGB Conc 33.9 g/dL Normal 32.0-35.0 [facility] Comment on above: Performed By: #### C K, PT, BNP, PTT, CBC, BMP, HS TROP #### [facility] [address] [place] [address] Monocytes/100 WBC (Bld) 16.34 % Normal 0.00-20.00 [facility] Comment on above: Performed By: #### C K, PT, BNP, PTT, CBC, BMP, HS TROP #### [address] NRBC% 0.1 /100{WBC} Normal 0-0.5 [facility] Comment on above: Performed By: #### C K, PT, BNP, PTT, CBC, BMP, HS TROP #### [address] Comprehensive Metabolic Pane tushar 03-18-2024 Albumin [Mass/Vol] 5.3 g/dL Normal 3.5-5.7 [facility] Comment on above: Performed By: #### C K, PT, BNP, PTT, CBC, BMP, HS TROP #### [address] Anion gap [Moles/Vol] Not performed Normal 6.0-15.0 [facility] Comment on above: Performed By: #### C K, PT, BNP, PTT, CBC, BMP, HS TROP #### [facility] [address] [place] [address] Creatinine Clr Calc Pharmacy 120.98 Normal [facility] Comment on above: Performed By: #### C K, PT, BNP, PTT, CBC, BMP, HS TROP #### [address] GFR/1.73 sq M.predicted MDRD (S/P/Bld) [Vol rate/Area] mL/min/{1.73_m2} Normal [facility] Comment on above: Performed By: #### C K, PT, BNP, PTT, CBC, BMP, HS TROP #### [facility] [address] Potassium Normal 3.5-5.1 [facility] Comment on above: Result Comment: Spec imen hemolyzed, redraw requested Results called at 2349 on 03/18/24 Performed By: #### C K, PT, BNP, PTT, CBC, BMP, HS TROP #### [facility] [address] [place] [id number] [facility] Creatinine [Mass/volume] in Serum or PlasmaOrdered By: Jacitno Benitez on 03-18-2024 Creatinine [Mass/Vol] 0.80 mg/dL Normal 0.60-1.20 [facility] Comment on above: Performed By: #### C K, PT, BNP, PTT, CBC, BMP, HS TROP #### [facility] [address] [place] [id number] [facility] ECG 12 lead ECGon 03-18-2024 ECG 12 lead ECG [facility] Main [place] [address] [place] [address] Electrocardiograph Report Signed Patient: Pili Parikh MR#: [id number] : 2005 Acct:[id number] Age/Sex: 19 / F ADM Date: 03/18/24 Loc: ER Room: Type: [facility] ER Attending Dr: Ordering Provider: Jacinto [...] Jacinto Benitez MD 03/19/24 0105 Normal [facility] Erythrocyte distribution wid th [Ratio] by Automated countOrdered By: Jacinto Benitez on 03-18-2024 Erythrocyte distribution width (RBC) [Ratio] 14.3 % Normal 11.9-15.3 [facility] Comment on above: Performed By: #### C K, PT, BNP, PTT, CBC, BMP, HS TROP #### [facility] [address] Erythrocytes [#/volume] in B lood by Automated countOrdered By: Jacinto Benitez on 03-18-2024 RBC (Bld) [#/Vol] 5.79 10*6/uL High 3.60-5.00 [facility] Comment on above: Performed By: #### C K, PT, BNP, PTT, CBC, BMP, HS TROP #### [facility] [address] Glucose [Mass/volume] in Ser um or PlasmaOrdered By: Jacinto Benitez on 03-18-2024 Glucose [Mass/Vol] 95 mg/dL Normal 70-100 [facility] Comment on above: ADA recommended refe rence rangeRandom Glucose Reference Range is dependent on time and content of last meal. Glucose of more than 200 mg/dL in a nonstressed, ambulatory subject supports the diagnosis of Diabetes Mellitus. Result Comment: [place] om Glucose Reference Range is dependent on time and content of last meal. Glucose of more than 200 mg/dL in a nonstressed, ambulatory subject supports the diagnosis of Diabetes Mellitus. ADA recommended reference range Performed By: #### C K, PT, BNP, PTT, CBC, BMP, HS TROP #### [place] [address] [place] HCG,Qualitative Serumon 02-27 HCG,Qualitative Serum Negative Normal [facility] Comment on above: Result Comment: PERF ORMED BY: [place] [address] PATHOLOGIST MARKET INVESTIGATOR NAY SARKAR M.D. Performed By: #### C K, PT, BNP, PTT, CBC, BMP, HS TROP #### [address] Hematocrit [Volume Fraction] of Blood by Automated countOrdered By: Jacinto Benitez on 03-18-2024 Hematocrit (Bld) [Volume fraction] 48.2 % High 34.0-46.4 [facility] Comment on above: Performed By: #### C K, PT, BNP, PTT, CBC, BMP, HS TROP #### [address] Hemoglobin [Mass/volume] in BloodOrdered By: Jacinto Benitez on 03-18-2024 Hemoglobin (Bld) [Mass/Vol] 16.3 g/dL High 11.8-15.4 [facility] Comment on above: Performed By: #### C K, PT, BNP, PTT, CBC, BMP, HS TROP #### [address] Leukocytes [#/volume] correc venkata for nucleated erythrocytes in Blood by Automated counOrdered By: Jacinto Benitez on 03-18-2024 WBC corrected for nucl RBC Auto (Bld) [#/Vol] 18.5 10*3/uL 3.8-11.6 [facility] Leukocytes [#/volume] in Blo od by Automated countOrdered By: Jacinto Benitez on 03-18-2024 WBC (Bld) [#/Vol] 18.5 10*3/uL High 3.8-11.6 [facility] Comment on above: Performed By: #### C K, PT, BNP, PTT, CBC, BMP, HS TROP #### [address] Lymphocytes [#/volume] in Bl ood by Automated countOrdered By: Jacinto Benitez on 03-18-2024 Lymphocytes (Bld) [#/Vol] 3.9 10*3/uL Normal 1.00-4.8 [facility] Comment on above: Performed By: #### C K, PT, BNP, PTT, CBC, BMP, HS TROP #### [address] [place] [address] [place] Lymphocytes/100 leukocytes i n Blood by Automated countOrdered By: Jacinto Benitez on 03-18-2024 Lymphocytes/100 WBC (Bld) 20.9 % Normal . [facility] Comment on above: Performed By: #### C K, PT, BNP, PTT, CBC, BMP, HS TROP #### [address] MCH [Entitic mass] by Automa venkata countOrdered By: Jacinto Benitez on 03-18-2024 MCH (RBC) [Entitic mass] 28.2 pg Normal 24.7-34.3 [facility] Comment on above: Performed By: #### C K, PT, BNP, PTT, CBC, BMP, HS TROP #### [address] MCHC Auto (RBC) [Mass/Vol]Or dered By: Jacinto Benitez on 03-18-2024 MCHC (RBC) [Mass/Vol] 33.9 g/dL 32.0-35.0 [facility] MCV [Entitic volume] by Auto mated countOrdered By: Jacinto Benitez on 03-18-2024 MCV (RBC) [Entitic vol] 83.2 fL Normal 80-100 [facility] Comment on above: Performed By: #### C K, PT, BNP, PTT, CBC, BMP, HS TROP #### [address] Monocyte distribution width [Entitic volume] in Blood by AutomatedOrdered By: Jacinto Benitez on 03-18-2024 Monocyte distribution width Auto (Bld) [Entitic vol] 16.34 % 0.00-20.00 [facility] Neutrophils [#/volume] in Bl ood by Automated countOrdered By: Jacinto Benitez on 03-18-2024 Neutrophils (Bld) [#/Vol] 12.7 10*3/uL High 1.8-7.7 [facility] Comment on above: Performed By: #### C K, PT, BNP, PTT, CBC, BMP, HS TROP #### [address] No Panel InformationOrdered By: Jacinto Benitez on 03-18-2024 Estimated GFR (CKD-EPI) > 60.0 mL/Min [facility] Creatinine Clearance (Chem 120.98 [facility] Nucleated erythrocytes [Pres ence] in Blood by Automated countOrdered By: Jacinto Benitez on 03-18-2024 Nucleated RBC Auto Ql (Bld) 0.1 /100{WBC} 0-0.5 [facility] Platelet mean volume [Entiti c volume] in Blood by Automated countOrdered By: Jacinto Benitez on 03-18-2024 Platelet mean volume (Bld) [Entitic vol] 8.5 fL Normal 6.3-10.7 [facility] Comment on above: Performed By: #### C K, PT, BNP, PTT, CBC, BMP, HS TROP #### [facility] [address] Platelets [#/volume] in Bloo d by Automated countOrdered By: Jacinto Benitez on 03-18-2024 Platelets (Bld) [#/Vol] 358 10*3/uL Normal 150-450 [facility] Comment on above: Performed By: #### C K, PT, BNP, PTT, CBC, BMP, HS TROP #### [facility] [address] Potassium [Moles/volume] in Serum or PlasmaOrdered By: Jacinto Benitez on 03-18-2024 Potassium [Moles/Vol] See comment 3.5-5.1 [facility] Comment on above: Specimen hemolyzed, redraw requestedResults calledat 2349 on 03/18/24 Protein [Mass/volume] in Ser um or PlasmaOrdered By: Jacinto Benitez on 03-18-2024 Protein [Mass/Vol] 8.1 g/dL Normal 6.4-8.9 [facility] Comment on above: Performed By: #### C K, PT, BNP, PTT, CBC, BMP, HS TROP #### [facility] [address] Serum globulin measurement b y calculation (mass/volume)Ordered By: Jacinto Benitez on 03-18-2024 Globulin (S) [Mass/Vol] 2.8 g/dL [facility] Comment on above: Performed By: #### C K, PT, BNP, PTT, CBC, BMP, HS TROP #### [facility] [address] Serum or plasma albumin/glob ulin mass ratioOrdered By: Jacinto Benitez on 03-18-2024 Albumin/Globulin [Mass ratio] 1.9 {ratio} [facility] Comment on above: Performed By: #### C K, PT, BNP, PTT, CBC, BMP, HS TROP #### [facility] [address] [place] [address] Serum or plasma anion gap de terminationOrdered By: Jacinto Benitez on 03-18-2024 Anion gap [Moles/Vol] TNP [facility] Comment on above: Test not performed Sodium [Moles/volume] in Ser um or PlasmaOrdered By: Jacinto Benitez on 03-18-2024 Sodium [Moles/Vol] 134 mmol/L Low 136-145 [facility] Comment on above: Performed By: #### C K, PT, BNP, PTT, CBC, BMP, HS TROP #### [facility] [address] [place] [address] Urea nitrogen [Mass/volume] in Serum or PlasmaOrdered By: Jacinto Benitez on 03-18-2024 Urea nitrogen [Mass/Vol] 27 mg/dL High 7-25 [facility] Comment on above: Performed By: #### C K, PT, BNP, PTT, CBC, BMP, HS TROP #### [facility] [address] [place] [address] CBC w/ Auto Diffon 4 Basophils/100 WBC (Bld) 0.4 % Normal 0.0-2.0 [facility] Comment on above: Performed By: #### 2 083521, [id number], 3691631, 3331694 ####[facility] [address] [place] [address] Basophils/Leukocytes Auto (Bld) [Pure # fraction] 0.1 E9/L Normal 0.0-0.2 [facility] Comment on above: Performed By: #### 2 474164, 02015785, 4029865, 7370042 ####[address] [address] Eosinophils (Bld) [#/Vol] 0.0 E9/L Normal 0.0-0.5 [facility] Comment on above: Performed By: #### 2 484229, 89201282, 5332101, 5148657 ####[address] [address] Eosinophils/100 WBC (Bld) 0.3 % Normal 0.0-8.0 [facility] Comment on above: Performed By: #### 2 234008, 76611989, 5315054, 0597031 ####[address] [address] Erythrocyte distribution width (RBC) [Ratio] 14.1 % Normal 10.9-14.2 [facility] Comment on above: Performed By: #### 2 432426, 89191838, 2079947, 2405219 ####[address] [address] Hematocrit (Bld) [Volume fraction] 44.0 % Normal 34.0-46.0 [facility] Comment on above: Performed By: #### 2 891019, 36987879, 1825259, 6807430 ####[address] [address] Hemoglobin (Bld) [Mass/Vol] 14.4 g/dL Normal 12.0-16.0 [facility] Comment on above: Performed By: #### 2 959836, 06573330, 6859851, 0772251 ####[address] [address] Lymphocytes (Bld) [#/Vol] 2.2 E9/L Normal 1.0-4.0 [facility] Comment on above: Performed By: #### 2 953543, 75969718, 5762150, 3563430 ####[facility] [address] [place] [address] Lymphocytes/100 WBC (Bld) 15.8 % Normal 14.0-50.0 [facility] Comment on above: Performed By: #### 2 080199, 06898050, 7803555, 5053638 ####[address] [address] MCH (RBC) [Entitic mass] 27.8 pg Normal 27.0-34.0 [facility] Comment on above: Performed By: #### 2 193944, 58403052, 8251221, 1632505 ####[address] [address] MCHC (RBC) [Mass/Vol] 32.6 g/dL Normal 31.4-36.0 [facility] Comment on above: Performed By: #### 2 273892, 60763870, 9040867, 9745564 ####[address] [address] MCV (RBC) [Entitic vol] 85.2 fL Normal 80.0-100.0 [facility] Comment on above: Performed By: #### 2 929656, 63599946, 9181634, 2022785 ####[address] [address] Monocytes (Bld) [#/Vol] 1.1 E9/L High 0.2-1.0 [facility] Comment on above: Performed By: #### 2 722627, 85674076, 4797017, 4313421 ####[address] [address] Neutrophils (Bld) [#/Vol] 10.6 E9/L High 2.0-7.5 [facility] Comment on above: Performed By: #### 2 662778, 60134122, 6881603, 0809056 ####[place] [address] [place] [address] Neutrophils/100 WBC (Bld) 75.9 % High 36.0-75.0 [facility] Comment on above: Performed By: #### 2 163993, 34752815, 2201936, 6336426 ####[facility] [address] [place] [address] Platelet mean volume (Bld) [Entitic vol] 8.4 fL Normal 6.4-10.8 [facility] Comment on above: Performed By: #### 2 408823, 18296735, 0132641, 9561352 ####[facility] [address] [place] [address] Platelets (Bld) [#/Vol] 276.0 E9/L Normal 150.0-500. 0 [facility] Comment on above: Performed By: #### 2 001339, 65376079, 2774469, 4815423 ####[address] [address] RBC (Bld) [#/Vol] 5.2 E12/L Normal 4.3-5.9 [facility] Comment on above: Performed By: #### 2 888705, 04501206, 5216804, 6484299 ####[address] [address] WBC corrected for nucl RBC Auto (Bld) [#/Vol] 14.0 E9/L High 4.0-11.0 [facility] Comment on above: Performed By: #### 2 220588, 52596658, 4426779, 5675785 ####[address] [address] CHEMISTRYOrdered By: SYSTEM SYSTEM on 03-15-2024 Albumin [...] 03-15-2024 Chloride [Moles/Vol] 99 mmol/L Low 101-111 [facility] Comment on above: Performed By: #### 2 111157, 04812441, 1520055, 1182065 ####[facility] [address] [place] [address] Potassium [Moles/Vol] 3.3 mmol/L Low 3.5-5.3 [facility] Comment on above: Performed By: #### 2 424968, 45269747, 5448106, 5774364 ####[facility] [address] [place] [address] Sodium [Moles/Vol] 137 mmol/L Normal 135-145 [facility] Comment on above: Performed By: #### 2 260472, 52723103, 2837702, 3471101 ####[facility] [address] [place] [address] Anion gap [Moles/Vol] 22 mmol/L High 6-16 [facility] Comment on above: Performed By: #### 2 162194, 72594729, 6469241, 0642208 ####[facility] [address] [place] [address] CO2 [Moles/Vol] 19 mmol/L Low 21-31 [facility] Comment on above: Performed By: #### 2 503295, 26502997, 2073038, 0455010 ####[facility] [address] [place] [address] Albumin [Mass/Vol] 5.0 g/dL Normal 3.3-5.0 [facility] Comment on above: Performed By: #### 2 202463, 30326096, 8851958, 5516434 ####[facility] [address] [place] [address] Albumin/Globulin (S) [Mass conc ratio] 1.8 Normal 1.1-2.2 [facility] Comment on above: Performed By: #### 2 833743, 68612256, 1596520, 7781626 ####[facility] [address] [place] [address] ALP [Catalytic activity/Vol] 69 Int._Unit/L Normal 21-98 [facility] Comment on above: Performed By: #### 2 768195, 17562650, 5503562, 3948215 ####[facility] [address] [place] [address] ALT No additional P-5'-P [Catalytic activity/Vol] 31 Int._Unit/L Normal 6-46 [facility] Comment on above: Performed By: #### 2 551468, 70429654, 8433662, 1026966 ####[facility] [address] [place] [address] AST [Catalytic activity/Vol] 19 Int._Unit/L Normal 5-43 [facility] Comment on above: Performed By: #### 2 219221, 47588945, 4994534, 0987985 ####[address] [address] Bilirubin [Mass/Vol] 0.8 mg/dL Normal 0.0-1.1 [facility] Comment on above: Performed By: #### 2 933642, 12138064, 7829846, 0014165 ####[facility] [address] [place] [address] Calcium [Mass/Vol] 10.4 mg/dL Normal 8.9-11.1 [facility] Comment on above: Performed By: #### 2 484181, 51721542, 9941532, 5456066 ####[facility] [address] [place] [address] Creatinine [Mass/Vol] 0.8 mg/dL Normal 0.5-1.3 [facility] Comment on above: Performed By: #### 2 561066, 79222167, 7368119, 6019449 ####[facility] [address] [place] [address] Globulin (S) [Mass/Vol] 2.8 g/dL Normal 1.4-4.0 [facility] Comment on above: Performed By: #### 2 722023, 89100730, 6452018, 7213929 ####[facility] [address] [place] [address] Glucose [Mass/Vol] 86 mg/dL Normal 55-199 [facility] Comment on above: Performed By: #### 2 978646, 14097708, 8720600, 8683151 ####[facility] [address] [place] [address] Protein [Mass/Vol] 7.8 g/dL Normal 6.0-7.8 [facility] Comment on above: Performed By: #### 2 701090, 70201744, 8626883, 3055124 ####[facility] [address] [place] [address] Urea nitrogen [Mass/Vol] 24 mg/dL High 5-21 [facility] Comment on above: Performed By: #### 2 674708, 65953560, 1570588, 6947092 ####[facility] [address] [place] [address] Urea nitrogen/Creatinine [Mass ratio] 30 No Units High 10-20 [facility] Comment on above: Performed By: #### 2 960440, 48669961, 9385614, 1387471 ####[facility] [address] [place] [address] CT Chest w/ Contraston 03-15 CT Chest [...] Bermudez FINAL REPORT Dictated: 03/15/2024 11:52 am Anselmo Dolan MD Signed (Electronic Signature): 03/15/2024 11:52 am Signed by: Anselmo Dolan MD Transcribed by: KIRA Technologist: DIANA Technical Comments GFR (mL/min/1/73m2) na- age Contrast: Isovue 300 Contrast amount in ml's: 100 Normal [facility] Consent for Treatmenton 02-26 Consent for Treatment [id number] Normal [facility] Discharge Instructionson Discharge Instructions [id number] Normal [facility] ED Clinical Summaryon 2023 ED Clinical Summary (Inserted Image. Vesta ble to display) [place] [id number] ED Clinical Summary Person Information [facility]: [facility] Age[facility] 19 Years : 2005 Sex: Female Language: Welsh PCP: MODESTA ARCHIBALD Marital Status: Single Visit [...] 03/15/2024 13:49:40 03/15/2024 13:49:40 03/15/2024 13:49:40 ADDRESS: [address] [place] [address] [id number] PHYS DOC NOTES: MEDICAL INFORMATION: Prescriptions Given: Medications to Continue with No Changes Other Medications acetaminophen-hydrocodone ([place] 325 mg-5 mg oral tablet) 1 Tablets [...] symptoms. DIAGNOSIS: 1:Nausea and vomiting; 2:Pneumomediastinum Normal [facility] ED Note-Physicianon 03-15-20 ED Note-Physician Basic Information Time Seen: August Bermudez M.D. 03/15/2024 10:35 Chief Complaint pt. states [...] and Complexity of Problems Differential Diagnosis: [] [facility] Data External documents reviewed: [] My [...] Return to (more content not included)... Normal [facility] Comment on above: Result Comment: [...] added (diluted fruit juice). ? Eat bland, faig-rm-sdsznd foods in small amounts as you are able. These foods include bananas, applesauce, rice, lean meats, toast, and crackers. ? Avoid fluids that contain a lot of sugar or caffeine, such as energy drinks, sports drinks, and soda. ? Avoid alcohol. ? Avoid spicy or fatty foods. General instructions ? Take impy-kxl-wjjvpsh and prescription medicines only as told by your health care provider. ? Drink enough fluid to keep your urine pale yellow. ? Wash your hands often using soap and water for at least 20 seconds. If soap and water are not available, use hand rn testing. ? Make sure that everyone in your [...] and drinking to prevent dehydration. ? Take iuhn-iqj-neuwqkx and prescription medicines only as told by [...] provider. Document Revised: 05/21/2022 Document Reviewed: 05/21/2022 [employer] Patient Education ? 2022 [employer]. Radiology Pneumomediastinum Pneumomediastinum is the presence of [...] marijuana. Spontane (more content not included)... Normal [facility] ED Patient Summaryon 024 ED Patient Summary (Inserted Image. Vesta ble to display) [place] [id number] Patient Discharge Instructions Person Information Name: PILI PARIKH Age: 19 Years Arrival Date: 03/15/2024 10:32:10 Discharge Diagnosis: 1:Nausea and vomiting; 2:Pneumomediastinum Primary Care Physician: MODESTA ARCHIBALD Provider Information Primary Provider: August Bermudez M.D. Advanced Typewriter Tester:None The exam and treatment you received in the Emergency Department were for an urgent problem and are not intended as complete care. It is important that you follow up with a doctor, nurse practitioner, or physician?s clerical dentist assistant for ongoing care. If your symptoms [...] opioids can be used to help relieve rrcqcxnp-fj-gtxyis pain and are often prescribed following a [...] be strugg (more content not included)... Normal [facility] HEMATOLOGYOrdered By: SYSTEM SYSTEM on [...] 03-15-2024 Magnesium [Mass/Vol] 2.2 mg/dL Normal 1.3-2.4 Fish [facility] Comment on above: Performed By: #### 2 908548, 31203067, 9252834, 4459939 ####[facility] [address] [place] [address] eGFRon 04-18-2024 eGFR 108 mL/min/1.73 m2 Normal >=59 [facility] Comment on above: Order Comment: Order added by Discern Expert. Performed By: #### 2 830003, 78537267, 6779906, 8837972 ####[facility] [address] [place] [address] CT Abdomen/Pelvis w/ Contras ton 03-14-2024 CT [...] 300 Contrast amount in ml's: [address] [facility] [address] Chest w/ Contraston 03-14 [...] 300 Contrast amount in ml's: [address] [facility] [address] Head or Brain w/o [...] M.D. Transcribed by: KIRA Technologist: RAVEN Normal [facility] CT Spine Cervical w/o Contra ston [...] M.D. Transcribed by: KIRA Technologist: RAVEN Normal [facility] EMS Documentationon 03-14-20 EMS Documentation Please click on link to see report Normal [facility] Comment on above: Result Comment: Miss [...] mGy = na DAP = na Normal [facility] ABO/Rhon 03-13-2024 ABO/Rh Positive Invalid Interpretation Code [facility] Comment on above: Performed By: #### 2 741488, 36624738, 73606065, 56074530 ####[facility] [address] [place] [address] ABO/Rh History Checkon 03-13 ABO/Rh History Check Patient discharged prior Normal [facility] Comment on above: Performed By: #### 2 792255, 95374166, 88318978, 28145259 ####[facility] [address] [place] [address] ABSCon 03-13-2024 ABSC Gel Interp Negative Normal [facility] Comment on above: Performed By: #### 2 403532, 86079473, 41883734, 95986307 ####[facility] [address] [place] [address] B hCG Qualon 03-13-2024 Beta HCG ( test) Ql Negative Normal [facility] Comment on above: Performed By: #### 2 4793339, 0265757, 3263912, 6746670, 0846182, 04827576, 14727659, 3453937, 1952314 ####[facility] [address] [place] [address] BLOOD BANKOrdered By: Scarlet Lindquist on 03-13-2024 ABO/Rh Interp Positive Invalid Interpretation Code [facility] BB Subsection ABSC Gel Interp Negative (03/13/24 6:53 PM) Normal [facility] BB Subsection BMPon 03-13-2024 Anion gap [Moles/Vol] 16 mmol/L Normal 05-13 [facility] Comment on above: Performed By: #### 2 9409340, 8156271, 6348036, 6970483, 4715452, 00556472, 07407018, 0473222, 4965286 ####[facility] [address] [place] [address] Calcium [Mass/Vol] 10.8 mg/dL Normal 8.9-11.1 [facility] Comment on above: Performed By: #### 2 1006787, 3304285, 5473198, 3183986, 2587606, 59849786, 99799160, 2770167, 4215291 ####[facility] [address] [place] [address] Chloride [Moles/Vol] 105 mmol/L Normal 101-111 Fish [facility] Comment on above: Performed By: #### 2 0912658, 5066221, 9083694, 5436261, 2954875, 56945951, 57165161, 8590936, 5724745 ####[facility] [address] [place] [address] CO2 [Moles/Vol] 25 mmol/L Normal 21-31 [facility] Comment on above: Performed By: #### 2 4767701, 7854991, 3172476, 4520771, 3909351, 04230891, 04043841, 9521455, 2555795 ####[facility] [address] [place] [address] Creatinine [Mass/Vol] 0.9 mg/dL Normal 0.5-1.3 [facility] Comment on above: Performed By: #### 2 4221820, 0014401, 3122873, 0795983, 6385176, 24733985, 24960041, 6742944, 7899383 ####[facility] [address] [place] [address] Glucose [Mass/Vol] 100 mg/dL Normal 55-199 [facility] Comment on above: Performed By: #### 2 3966221, 8276204, 6805578, 0507928, 1651549, 68220235, 36203696, 1424791, 3368991 ####[facility] [address] [place] [address] Potassium [Moles/Vol] 3.3 mmol/L Low 3.5-5.3 [facility] Comment on above: Performed By: #### 2 3405146, 5018544, 3155511, 4971164, 7111629, 08470587, 89814695, 1495443, 7710558 ####[facility] [address] [place] [address] Sodium [Moles/Vol] 143 mmol/L Normal 135-145 [facility] Comment on above: Performed By: #### 2 7204650, 8978387, 6906209, 6510407, 9613383, 51698786, 97872957, 3456836, 1201094 ####[facility] [address] [place] [address] Urea nitrogen [Mass/Vol] 24 mg/dL High 5-21 [facility] Comment on above: Performed By: #### 2 1352496, 7504727, 6195836, 1303820, 6506261, 72438900, 65514748, 2645775, 7214373 ####[facility] [address] [place] [address] Urea nitrogen/Creatinine [Mass ratio] 27 No Units High 10-20 [facility] Comment on above: Performed By: #### 2 5323727, 9053589, 1760022, 8078057, 1664998, 32776135, 93729846, 7191379, 1905885 ####[address] [address] Blood Bank ID#on 03-13-2024 BBID# [id number] Invalid Interpretation Code [facility] Comment on above: Performed By: #### 2 665835, 24984137, 17236510, 25780272 ####[place] [address] [place] [address] CBC w/ Auto Diffon 4 Basophils/100 WBC (Bld) 0.4 % Normal 0.0-2.0 [facility] Comment on above: Performed By: #### 2 8428593, 9121326, 8129328, 9145372, 7327755, 43621849, 17063637, 4611840, 2778233 ####[facility] [address] [place] [address] Basophils/Leukocytes Auto (Bld) [Pure # fraction] 0.1 E9/L Normal 0.0-0.2 [facility] Comment on above: Performed By: #### 2 1641115, 7935385, 0030899, 2020338, 4241701, 51683907, 74390986, 8573207, 0938737 ####[place] [address] [place] [address] Eosinophils (Bld) [#/Vol] 0.0 E9/L Normal 0.0-0.5 [facility] Comment on above: Performed By: #### 2 9782129, 9320843, 1976525, 7725191, 8360414, 21451104, 60928433, 2357758, 4745678 ####[address] [address] Eosinophils/100 WBC (Bld) 0.1 % Normal 0.0-8.0 [facility] Comment on above: Performed By: #### 2 0056029, 3297550, 9121687, 0784078, 5955832, 33342908, 94993231, 0086176, 1532952 ####[place] [address] Erythrocyte distribution width (RBC) [Ratio] 14.4 % High 10.9-14.2 [facility] Comment on above: Performed By: #### 2 1850004, 3899336, 4329284, 1868480, 3011872, 54407533, 99557493, 1531614, 0909564 ####[address] [address] Hematocrit (Bld) [Volume fraction] 42.5 % Normal 34.0-46.0 [facility] Comment on above: Performed By: #### 2 3424632, 1866046, 1764175, 3004881, 9007141, 75589441, 79100238, 4507761, 8012495 ####[place] [address] Hemoglobin (Bld) [Mass/Vol] 14.0 g/dL Normal 12.0-16.0 [facility] Comment on above: Performed By: #### 2 3448611, 0348363, 0480470, 5724576, 8008377, 88674457, 84724557, 4315145, 7188573 ####[address] [address] Lymphocytes (Bld) [#/Vol] 2.3 E9/L Normal 1.0-4.0 [facility] Comment on above: Performed By: #### 2 9126339, 9464230, 5085755, 8369864, 6101785, 13097980, 70322155, 2060344, 7600180 ####[address] [address] Lymphocytes/100 WBC (Bld) 11.8 % Low 14.0-50.0 [facility] Comment on above: Performed By: #### 2 3082891, 5582299, 7310701, 7810088, 3479538, 63798935, 28055097, 4880957, 9402257 ####[address] [address] MCH (RBC) [Entitic mass] 27.6 pg Normal 27.0-34.0 [facility] Comment on above: Performed By: #### 2 2897200, 6063705, 4376399, 8930306, 6664338, 57477328, 39730109, 1114940, 7887271 ####[address] [address] MCHC (RBC) [Mass/Vol] 32.9 g/dL Normal 31.4-36.0 [facility] Comment on above: Performed By: #### 2 1938613, 0867454, 2485367, 6959100, 4796833, 31832068, 14024603, 3752452, 7361688 ####[address] [address] MCV (RBC) [Entitic vol] 83.8 fL Normal 80.0-100.0 [facility] Comment on above: Performed By: #### 2 5041623, 0226855, 1094459, 8697789, 4645799, 38229877, 59411627, 8047856, 9469501 ####[facility] [address] [place] [address] Monocytes (Bld) [#/Vol] 1.4 E9/L High 0.2-1.0 [facility] Comment on above: Performed By: #### 2 0359391, 9347726, 4215221, 8840163, 3699644, 56822817, 99283521, 0041514, 8657525 ####[address] [address] Neutrophils (Bld) [#/Vol] 15.5 E9/L High 2.0-7.5 [facility] Comment on above: Performed By: #### 2 3882018, 5847839, 4138982, 2036012, 3535106, 21616817, 97018999, 3275386, 8964553 ####[address] [address] Neutrophils/100 WBC (Bld) 80.6 % High 36.0-75.0 [facility] Comment on above: Performed By: #### 2 2116662, 0182587, 7628713, 7339887, 6624026, 14297360, 41746881, 4027972, 7994134 ####[address] [address] Platelet mean volume (Bld) [Entitic vol] 8.4 fL Normal 6.4-10.8 [facility] Comment on above: Performed By: #### 2 4481739, 2445195, 1109949, 9137422, 3871463, 68584854, 57781343, 9941442, 3404464 ####[address] [address] Platelets (Bld) [#/Vol] 356.0 E9/L Normal 150.0-500. 0 [facility] Comment on above: Performed By: #### 2 6819112, 9424495, 2902153, 5658417, 5347405, 97945492, 02582977, 2741187, 6200066 ####[facility] [address] [place] [address] RBC (Bld) [#/Vol] 5.1 E12/L Normal 4.3-5.9 [facility] Comment on above: Performed By: #### 2 7188913, 1594185, 7243252, 9467003, 6510274, 04994813, 58204089, 4888223, 9258034 ####[facility] [address] [place] [address] WBC corrected for nucl RBC Auto (Bld) [#/Vol] 19.3 E9/L High 4.0-11.0 [facility] Comment on above: Result Comment: Jamal e review performed Performed By: #### 2 7422720, 6085611, 5560639, 8395470, 7945389, 06721112, 84711183, 8062364, 0372857 ####[facility] [address] [place] [address] CHEMISTRYOrdered By: SYSTEM SYSTEM on 03-13-2024 Albumin [...] Sensitivity Troponin I Instructions For Use, Sugar [facility]field, June 2018) Urea nitrogen [Mass/Vol] 24 mg/dL High 5 - 21 mg/dL Rem[facility] Urea nitrogen/Creatinine [Mass ratio] 27 mg/mg High 10 - 20 [facility] COAGULATIONOrdered By: Jefe Mccain on 03-13-2024 aPTT Coag (PPP) [Time] 32.8 s Normal 25.1 - 36.5 second(s) [facility] Auto Coag Comment on above: Interpretive Data: P neena 15 days - 4 weeks 1 - [...] the same coagulation reagent and instrumentation as [facility]. Currently there are no coagulation studies available worldwide for children to 14 days, and no normal ranges. Heparin therapeutic range (represented by Anti-Factor Xa activity of 0.2 - 0.4 U/mL) corresponds to PTT of 56.6 - 109.0 sec. INR Coag (PPP) [Relative time] 1.11 {INR} Invalid Interpretation Code [facility] Auto Coag Comment on above: Interpretive Data: I NR results are specifically intended to assess patients stabilized on long-term Anticoagulation therapy suggested INR s Less Intensive Anticoagulation 2.0 3.0 Conventional Range 3.0 4.5 PT Coag (PPP) [Time] 12.4 s Normal 9.4 - 1 2.5 second(s) [facility] Auto Coag Comment on above: Interpretive Data: [...] the same coagulation reagent and instrumentation as [facility]. Currently there are no coagulation studies available worldwide for children to 14 days, and no normal ranges. Consent for Treatmenton 02-26 Consent for Treatment [id number]#1.00TIFF Normal [facility] Discharge Instructionson Discharge Instructions [id number]#1.00TIFF Normal [facility] ED Clinical Summaryon 2023 ED Clinical Summary (Inserted Image. Vesta ble to display) [place] [id number] ED Clinical Summary Person Information Name: [facility] Age[facility] 19 Years : 2005 Sex: Female Language: Welsh PCP: MODESTA ARCHIBALD Marital Status: Single Visit [...] 03/13/2024 22:27:59 03/13/2024 22:27:59 ADDRESS: [address] [facility] [id number] PHYS DOC NOTES: MEDICAL INFORMATION: Prescriptions Given: New Medications [id number], [address], [place] [id number], [phone] acetaminophen-hydrocodone ([place] 325 mg-5 mg oral tablet) 1 Tablets [...] EDUCATION INFORMATION: Instructions: Nausea and Vomiting, Adult, Calc-oc-Hsgs; Muscle Strain, Jvpj-qh-Xnns Follow up: With: Address: When: MODESTA ARCHIBALD [address], [place] [phone] Business (1) In 3 days 03/16/2024 Comments: [...] Back strain; N&V (nausea and vomiting) Normal [facility] ED Note-Physicianon 03-13-20 ED Note-Physician Basic [...] EDT, STA (more content not included)... Normal [facility] Comment on above: Result Comment: [...] ? Low-calorie sports drinks. ? Eat bland, wscb-cl-ykhbvx foods in small amounts as you are able, such as: ? Bananas. ? Applesauce. ? Rice. ? Low-fat (lean) meats. ? Drasco. ? Crackers. ? Avoid drinking fluids that have a lot of sugar or caffeine in them. This includes energy drinks, sports drinks, and soda. ? Avoid alcohol. ? Avoid spicy or fatty foods. General instructions ? Take gcbc-nfn-cbzyugm and prescription medicines only as told by your doctor. ? Drink enough fluid to keep your pee (urine) pale yellow. ? Wash your hands often with soap and water for at least 20 seconds. If you cannot use soap and water, use hand rn testing. ? Make sure that everyone in your [...] doctor about eating and drinking. ? Take qoia-ckq-vbcdltr and prescription medicines only as told by your doctor. ? Contact your doctor if your symptoms get worse or you have new symptoms. ? Keep all follow-up visits. This information is not intended to replace advice given to you by your health care provider. Make sure you discuss any questions you have with your health care provider. Document Revised: 05/21/2022 Document Reviewed: 05/21/2022 [place] [employer] [place] Patient Education ? 2022 [employer]. Orthopedics Muscle Strain A muscle strain, or [...] your m (more content not included)... Normal [facility] ED Patient Summaryon 024 ED Patient Summary (Inserted Image. Vesta ble to display) [address] [address] Patient Discharge Instructions Person Information Name: PILI PARIKH Age: 19 Years Arrival Date: 03/13/2024 17:33:02 Discharge Diagnosis: 1:Fall down stairs; Abnormal CT scan, chest; Back strain; N&V (nausea and vomiting) Primary Care Physician: MODESTA ARCHIBALD Provider Information Primary Provider: Jacinto Roman DO Advanced Typewriter Tester:Gasper Lang PA-C The exam and treatment you received in the Emergency Department were for an urgent problem and are not intended as complete care. It is important that you follow up with a doctor, nurse practitioner, or physician?s clerical dentist assistant for ongoing care. If your symptoms [...] With: Address: When: MODESTA ARCHIBALD [address], [place] [phone] Business (1) In 3 days 03/16/2024 Comments: [...] Patient Education Materials: Nausea and Vomiting, Adult, Ipnp-kd-Topj; Muscle Strain, Btoo-bh-Hhbb A MESSAGE TO ALL PATIENTS REGARDING OPIOIDS PRESCRIPTION OPIOIDS: WHAT YOU NEED TO KNOW Prescription opioids can be used to help relieve kuqcjriv-fw-ahscme pain and are often prescribed following a [...] them juan (more content not included)... Normal [facility] ED Traumaon 03-13-2024 ED Trauma [id number]#1.00TIFF Normal [facility] Ethanolon 03-13-2024 Ethanol Lvl <10 Normal <=11 [facility] Comment on above: Performed By: #### 2 753569 ####[facility] [address] [place] [address] HEMATOLOGYOrdered By: SYSTEM SYSTEM on 03-13-2024 Basophils/100 [...] 03-13-2024 Albumin [Mass/Vol] 5.4 g/dL High 3.3-5.0 [facility] Comment on above: Performed By: #### 2 5387850, 2397365, 2266438, 2854111, 6787172, 34908167, 86401212, 6407013, 4719634 ####[facility] [address] [place] [address] Albumin/Globulin (S) [Mass conc ratio] 1.8 Normal 1.1-2.2 [facility] Comment on above: Performed By: #### 2 4634918, 1727865, 1426382, 1476898, 6461518, 37998661, 36547093, 9667442, 2024864 ####[facility] [address] [place] [address] ALP [Catalytic activity/Vol] 82 Int._Unit/L Normal 21-98 [facility] Comment on above: Performed By: #### 2 8030095, 9519196, 7671194, 3060151, 3841656, 02630815, 80128995, 4652681, 4210419 ####[facility] [address] [place] [address] ALT No additional P-5'-P [Catalytic activity/Vol] 44 Int._Unit/L Normal 6-46 [facility] Comment on above: Performed By: #### 2 7543674, 8281094, 0101430, 6800482, 5703092, 93297884, 06367322, 3923263, 9774304 ####[facility] [address] [place] [address] AST [Catalytic activity/Vol] 23 Int._Unit/L Normal 5-43 [facility] Comment on above: Performed By: #### 2 9099680, 8881869, 5516959, 3461044, 4833319, 08354971, 38581479, 7625097, 1544701 ####[place] [address] Bilirubin [Mass/Vol] 0.8 mg/dL Normal 0.0-1.1 [facility] Comment on above: Performed By: #### 2 0732606, 4186926, 1230157, 7235262, 5266764, 11216852, 77235734, 8538617, 4117884 ####[facility] [address] [place], [place] [address] Bilirubin.direct [Mass/Vol] 0.2 mg/dL Normal 0.0-0.4 [facility] Comment on above: Performed By: #### 2 3952230, 2283408, 7149848, 8624962, 9500145, 29483761, 37390408, 6378845, 1129343 ####[place] [address] Bilirubin.indirect [Mass or moles/Vol] 0.6 mg/dL Normal 0.1-0.9 [facility] Comment on above: Performed By: #### 2 7933536, 4835842, 1613776, 4944033, 9408965, 58248603, 33867809, 9718597, 8180250 ####[facility] [address] [place] [address]48357 Globulin (S) [Mass/Vol] 3.0 g/dL Normal 1.4-4.0 [facility] Comment on above: Performed By: #### 2 6373422, 1751837, 1755839, 0998728, 0925126, 92432174, 17554981, 9472702, 0402018 ####[facility] [address] [place] [address] Protein [Mass/Vol] 8.4 g/dL High 6.0-7.8 [facility] Comment on above: Performed By: #### 2 2305325, 9892644, 8983001, 1663727, 7441632, 80106629, 02502549, 9620169, 9248506 ####[facility] [address] [place] [address] Lactic Acidon 03-13-2024 Lactic Acid Lvl 1.7 mmol/L Normal 0.5-2.2 [facility] Comment on above: Performed By: #### 2 9300390, 3916387, 5428427, 2117014, 4087862, 57179157, 98179184, 6104109, 2763916 ####[facility] [address] [place] [address] Lipase Levelon 03-13-2024 Lipase [Catalytic activity/Vol] 14 U/L Normal 13-58 [facility] Comment on above: Performed By: #### 2 3733968, 1815111, 2727389, 4800373, 2766173, 25052486, 79865813, 0141906, 9238535 ####[facility] [address] [place] [address] Monitor Recordon 03-13-2024 Monitor Record [id number]#1.00TIFF Normal [facility] Monitor Record [id number]#1.00TIFF Normal [facility] PT & PTTon 03-13-2024 aPTT Coag (PPP) [Time] 32.8 second(s) Normal 25.1-36.5 [facility] Comment on above: Result Comment: [...] obtained from a study by britt Youssef al. prepared from 1437 samples obtained at 7 different centers using the same coagulation reagent and instrumentation as [facility]. Currently there are no coagulation studies available worldwide for children to 14 days, and no normal ranges. Heparin therapeutic range (represented by Anti-Factor Xa activity of 0.2 - 0.4 U/mL) corresponds to PTT of 56.6 - 109.0 sec. Performed By: #### 2 2263285, 8979849, 0670683, 0131031, 5669600, 02416567, 44807518, 3666476, 0113568 ####[facility] [address] [place] [address] INR Coag (PPP) [Relative time] 1.11 {INR} Invalid Interpretation Code [facility] Comment on above: Result Comment: INR results are specifically intended to assess patients stabilized on long-term Anticoagulation therapy suggested INR?s ?Less Intensive Anticoagulation? 2.0 ? 3.0 Conventional Range 3.0 ? 4.5 Performed By: #### 2 0925026, 4471653, 8582271, 2826310, 4233114, 42772739, 01315243, 4560621, 7970308 ####[facility] [address] [place] [address] PT Coag (PPP) [Time] 12.4 second(s) Normal 9.4-12.5 [facility] Comment on above: Result Comment: [...] the same coagulation reagent and instrumentation as [facility]. Currently there are no coagulation studies available worldwide for children to 14 days, and no normal ranges. Performed By: #### 2 8553900, 7532520, 9443113, 5020455, 5155342, 87015619, 08297491, 9257919, 9095053 ####[facility] [address] [place] [address] Pre-Arrival Noteon Pre-Arrival Note Pre-Arrival Summary Name: , [facility] Current Date: 03/13/2024 17:34:24 EDT Gender: Female Date of : Age: 19 Pre-Arrival Type: EMS ETA: 03/13/2024 17:59:00 EDT Primary Care Physician: Presenting Problem: fall down 10 stairs Pre-Arrival User: Payal Robison RN Referring Source: Location: Completion Date/Time: 03/13/2024 17:29:00 [facility] Emergency Department Pre-Hospital Report Form Vital Signs: 127/83; 66; 17; 96%; GCS 15 Pre-Hospital Report: Treatment in Route: C-COLLAR Response to Treatment: Misc. Issues: Normal [facility] Prescriptions/Work Noteson 0 03-13-2024 Prescriptions/Work Notes [id number]#1.00TIFF Normal [facility] RAD - Preliminary Cat Scan R eporton 03-13-2024 RAD - Preliminary Cat Scan Report [id number]#1.00TIFF Normal [facility] SEROLOGYOrdered By: Virginia Mccain on 03-13-2024 Beta HCG ( test) Ql Negative (03/13/24 6:53 PM) Normal [facility] Man Sero Troponinon 03-13-2024 Troponin 6.10 pg/mL Low 10.10-27.1 0 [facility] Comment on above: Result Comment: The 95% CI (Confidence Interval) PPV (Positive Predictive Value) for myocardial infarction in females is 38 pg/mL, in males 51 pg/mL. The results should be used in conjunction with clinical conditions of myocardial infarction. (Access High Sensitivity Troponin I Instructions For Use, [employer], June 2018) Performed By: #### 2 7543140, 6890379, 5584693, 6298439, 3595087, 59073364, 88522279, 4806972, 3572559 ####[facility] [address] [place] [address] eGFRon 03-13-2024 eGFR 94 mL/min/1.73 m2 Normal >=59 [facility] Comment on above: Order Comment: juaquinns t o run. phlebotomists notified of recollect by message. [id number] 03/13/2024 18:28:21 EDTOrder added by Discern Expert. Performed By: #### 2 2980414, 7797951, 2955299, 1475855, 7319999, 59573119, 08448919, 6820102, 2362326 ####[facility] [address] [place] [address] Amphetamine Screen Ql (U)Ord ered By: Familia Christian on 05-25-2023 Amphetamines Ql (U) Negative Negative [facility] Barbiturates [Presence] in U rine by Screen methodOrdered By: Familia Christian on 05-25-2023 Barbiturates Screen Ql (U) Negative Negative [facility] Benzodiazepines Screen Ql (U )Ordered By: Familia Christian on 05-25-2023 Benzodiazepines Ql (U) Negative Negative [facility] Benzoylecgonine [Presence] i n Urine by Screen methodOrdered By: Familia Christian on 05-25-2023 Benzoylecgonine Screen Ql (U) Negative Negative [facility] Cannabinoids [Presence] in U rine by Screen methodOrdered By: Familia Christian on 05-25-2023 Cannabinoids Screen Ql (U) Positive Negative [facility] Comment on above: These are unconfirme d results and should not be used for legal purposes. Drug Cut-Off Concentration: AMPH 1000 ng/mL NIKOLAS 200 ng/mL SHRAVAN 200 ng/mL COCM 300 ng/mL OP 300 ng/mL PCP 25 ng/mL THC 20 ng/mL HCG ( test) IA.rapi d Ql (U)Ordered By: Familia Christian on 05-25-2023 HCG ( test) Ql (U) Negative [facility] Opiates [Presence] in Urine by Screen methodOrdered By: Familia Christian on 05-25-2023 Opiates Screen Ql (U) Negative Negative [facility] Phencyclidine Screen Ql (U)O rdered By: Familia Christian on 05-25-2023 Phencyclidine Ql (U) Negative Negative [facility] COVID-19 Detected/Not Detect edOrdered By: Modesta Chand on 03-15-2023 SARS-CoV-2 (COVID-19) RNA JANAK+non-probe Ql (Nph) Not detected Not Detecte [facility] Comment on above: This is a duplicate RP2.1 COVID (PCR) result to be used for statistical tracking purpose only. Respiratory pathogens DNA an d RNA panel - Nasopharynx by JANAK with non-probe detectionOrdered By: Modesta Chand on 03-15-2023 Respiratory pathogens DNA and RNA panel JANAK+non-probe (Nph) [facility] Basophils Auto (Bld) [#/Vol] Ordered By: Anette Stout on 01-07-2023 Basophils (Bld) [#/Vol] 0.0 10*3/uL 0.0-0.1 [facility] Basophils/100 WBC Auto (Bld) Ordered By: Anette Stout on 01-07-2023 Basophils/100 WBC (Bld) 0.4 % . [facility] Eosinophils Auto (Bld) [#/Vo l]Ordered By: Anette Stout on 01-07-2023 Eosinophils (Bld) [#/Vol] 0.7 10*3/uL 0.0-0.7 [facility] Eosinophils/100 WBC Auto (Bl d)Ordered By: Anette Stout on 01-07-2023 Eosinophils/100 WBC (Bld) 5.5 % . [facility] Erythrocyte distribution wid th Auto (RBC) [Ratio]Ordered By: Anette Stout on 01-07-2023 Erythrocyte distribution width (RBC) [Ratio] 13.5 % 11.9-15.3 [facility] Estimated glomerular filtrat ion rate (GFR) non- AmericanOrdered By: Anette Stout on 01-07-2023 GFR/1.73 sq M.predicted among non-blacks MDRD (S/P/Bld) [Vol rate/Area] > 60 mL/Min [facility] Hematocrit Auto (Bld) [Volum e fraction]Ordered By: Anette Stout on 01-07-2023 Hematocrit (Bld) [Volume fraction] 41.5 % 36.0-46.0 [facility] Hemoglobin [Mass/volume] in BloodOrdered By: Anette Stout on 01-07-2023 Hemoglobin (Bld) [Mass/Vol] 14.0 g/dL 12.0-16.0 [facility] Leukocytes [#/volume] correc venkata for nucleated erythrocytes in Blood by Automated counOrdered By: Anette Stout on 01-07-2023 WBC corrected for nucl RBC Auto (Bld) [#/Vol] 12.1 10*3/uL 4.5-13.5 [facility] Lymphocytes Auto (Bld) [#/Vo l]Ordered By: Anette Stout on 01-07-2023 Lymphocytes (Bld) [#/Vol] 2.5 10*3/uL 1.20-4.8 [facility] Lymphocytes/100 WBC Auto (Bl d)Ordered By: Anette Stout on 01-07-2023 Lymphocytes/100 WBC (Bld) 20.9 % . [facility] MCH Auto (RBC) [Entitic mass ]Ordered By: Anette Stout on 01-07-2023 MCH (RBC) [Entitic mass] 28.8 pg 25.0-35.0 [facility] MCHC Auto (RBC) [Mass/Vol]Or dered By: Anette Stout on 01-07-2023 MCHC (RBC) [Mass/Vol] 33.7 g/dL 31.0-37.0 [facility] MCV Auto (RBC) [Entitic vol] Ordered By: Anette Stout on 01-07-2023 MCV (RBC) [Entitic vol] 85.5 fL 78-102 [facility] Monocytes Auto (Bld) [#/Vol] Ordered By: Anette Stout on 01-07-2023 Monocytes (Bld) [#/Vol] 0.9 10*3/uL 0.1-1.00 [facility] Monocytes/100 WBC Auto (Bld) Ordered By: Anette Stout on 01-07-2023 Monocytes/100 WBC (Bld) 7.5 % . [facility] Neutrophils Auto (Bld) [#/Vo l]Ordered By: Anette Stout on 01-07-2023 Neutrophils (Bld) [#/Vol] 8.0 10*3/uL 1.2-7.7 [facility] Neutrophils/100 WBC Auto (Bl d)Ordered By: Anette Stout on 01-07-2023 Neutrophils/100 WBC (Bld) 65.7 % . [facility] No Panel InformationOrdered By: Anette Stout on 01-07-2023 > 60 mL/Min [facility] 113.92 [facility] Nucleated erythrocytes [Pres ence] in Blood by Automated countOrdered By: Anette Stout on 01-07-2023 Nucleated RBC Auto Ql (Bld) 0.1 /100{WBC} 0-0.5 [facility] Platelet mean volume Auto (B ld) [Entitic vol]Ordered By: Anette Stout on 01-07-2023 Platelet mean volume (Bld) [Entitic vol] 8.6 fL 6.3-10.7 [facility] Platelets Auto (Bld) [#/Vol] Ordered By: Anette Stout on 01-07-2023 Platelets (Bld) [#/Vol] 222 10*3/uL 150-450 [facility] RBC Auto (Bld) [#/Vol]Ordere d By: Anette Stout on 01-07-2023 RBC (Bld) [#/Vol] 4.85 10*6/uL 4.10-5.10 [facility] Serum or plasma anion gap de terminationOrdered By: Anette Stout on 01-07-2023 Anion gap [Moles/Vol] N/A [facility] Serum or plasma calcium tammy urement (mass/volume)Ordered By: Anette Stout on 01-07-2023 Calcium [Mass/Vol] 8.5 mg/dL 8.2-10.2 [facility] Serum or plasma chloride judy surement (moles/volume)Ordered By: Anette Stout on 01-07-2023 Chloride [Moles/Vol] 103 mmol/L 95-114 [facility] Serum or plasma creatinine m easurement with calculation of estimated glomerular filtrOrdered By: Anette Stout on 01-07-2023 Creatinine and Glomerular filtration rate.predicted panel (S/P/Bld) 0.77 mg/dL 0.44-1.03 [facility] Serum or plasma glucose tammy urement (mass/volume)Ordered By: Anette Stout on 01-07-2023 Glucose [Mass/Vol] 90 mg/dL 70-100 [facility] Serum or plasma potassium me asurement (moles/volume)Ordered By: Eliana Bautista on 01-07-2023 Potassium [Moles/Vol] 3.2 mmol/L 3.5-5.1 [facility] Serum or plasma sodium measu rement (moles/volume)Ordered By: Anette Stout on 01-07-2023 Sodium [Moles/Vol] 134 mmol/L 136-146 [facility] Serum or plasma total carbon dioxide measurement (moles/volume)Ordered By: Anette Stout on 01-07-2023 CO2 [Moles/Vol] 23.4 mmol/L 22.0-30.0 [facility] Serum or plasma urea nitroge n measurement (mass/volume)Ordered By: Anette Stout on 01-07-2023 Urea nitrogen [Mass/Vol] 8 mg/dL 9-23 [facility] WBC Auto (Bld) [#/Vol]Ordere d By: Anette Stout on 01-07-2023 WBC (Bld) [#/Vol] 12.1 10*3/uL 4.5-13.5 [facility] Amphetamine Screen Ql (U)Ord ered By: Anette Stout on 01-06-2023 Amphetamines Ql (U) Negative Negative [facility] Automated erythrocytes count in urine sediment (number/area)Ordered By: Rd Brown on 01-06-2023 RBC Auto (Urine sed) [#/Area] None seen [HPF] 0-4 [facility] Automated leukocytes count i n urine sediment (number/area)Ordered By: Rd Brown on 01-06-2023 WBC Auto (Urine sed) [#/Area] 20-49 [HPF] 0-4 [facility] Automated urine hyaline cast s count (number/volume)Ordered By: Rd Brown on 01-06-2023 Hyaline casts Auto (U) [#/Vol] None seen [LPF] 0-1 [facility] Barbiturates [Presence] in U rineOrdered By: Anette Stout on 01-06-2023 Barbiturates Ql (U) Negative Negative [facility] Basophils Auto (Bld) [#/Vol] Ordered By: Rd Brown on 01-06-2023 Basophils (Bld) [#/Vol] 0.0 10*3/uL 0.0-0.1 [facility] Basophils/100 WBC Auto (Bld) Ordered By: Rd Brown on 01-06-2023 Basophils/100 WBC (Bld) 0.3 % . [facility] Benzodiazepines [Presence] i n UrineOrdered By: Anette Stout on 01-06-2023 Benzodiazepines Ql (U) Negative Negative [facility] Bilirubin Test strip Ql (U)O rdered By: Rd Brown on 01-06-2023 Bilirubin Ql (U) Negative Negative [facility] Body fluid albumin measureme nt (mass/volume)Ordered By: Rd Brown on 01-06-2023 Albumin (Body fld) [Mass/Vol] 4.9 g/dL 3.2-5.5 [facility] Cannabinoids [Presence] in U rine by Screen methodOrdered By: Anette Stout on 01-06-2023 Cannabinoids Screen Ql (U) Positive Negative [facility] Casts typing in urine sedime nt by light microscopyOrdered By: Rd Brown on 01-06-2023 Casts LM Nom (Urine sed) None seen [LPF] None Seen [facility] Color Auto (U)Ordered By: Andrew Brown on 01-06-2023 Color (U) Yellow Yellow [facility] Eosinophils Auto (Bld) [#/Vo l]Ordered By: Rd Brown on 01-06-2023 Eosinophils (Bld) [#/Vol] 0.4 10*3/uL 0.0-0.7 [facility] Eosinophils/100 WBC Auto (Bl d)Ordered By: Rd Brown on 01-06-2023 Eosinophils/100 WBC (Bld) 2.3 % . [facility] Erythrocyte distribution wid th Auto (RBC) [Ratio]Ordered By: Rd Brown on 01-06-2023 Erythrocyte distribution width (RBC) [Ratio] 13.5 % 11.9-15.3 [facility] Estimated glomerular filtrat ion rate (GFR) non- AmericanOrdered By: Rd Brown on 01-06-2023 GFR/1.73 sq M.predicted among non-blacks MDRD (S/P/Bld) [Vol rate/Area] > 60 mL/Min [facility] Globulin Calc (S) [Mass/Vol] Ordered By: Rd Brown on 01-06-2023 Globulin (S) [Mass/Vol] 2.9 g/dL [facility] HCG ( test) IA.rapi d Ql (U)Ordered By: Rd Brown on 01-06-2023 HCG ( test) Ql (U) Negative [facility] Hematocrit Auto (Bld) [Volum e fraction]Ordered By: Rd Brown on 01-06-2023 Hematocrit (Bld) [Volume fraction] 48.3 % 36.0-46.0 [facility] Hemoglobin [Mass/volume] in BloodOrdered By: Rd Brown on 01-06-2023 Hemoglobin (Bld) [Mass/Vol] 16.2 g/dL 12.0-16.0 [facility] Ketones Auto test strip (U) [Mass/Vol]Ordered By: Rd Brown on 01-06-2023 Ketones (U) [Mass/Vol] 4+ [facility] Leukocytes [#/volume] correc venkata for nucleated erythrocytes in Blood by Automated counOrdered By: Rd Brown on 01-06-2023 WBC corrected for nucl RBC Auto (Bld) [#/Vol] 17.7 10*3/uL 4.5-13.5 [facility] Lymphocytes Auto (Bld) [#/Vo l]Ordered By: Rd Brown on 01-06-2023 Lymphocytes (Bld) [#/Vol] 3.5 10*3/uL 1.20-4.8 [facility] Lymphocytes/100 WBC Auto (Bl d)Ordered By: Rd Brown on 01-06-2023 Lymphocytes/100 WBC (Bld) 19.9 % . [facility] MCH Auto (RBC) [Entitic mass ]Ordered By: Rd Brown on 01-06-2023 MCH (RBC) [Entitic mass] 28.7 pg 25.0-35.0 [facility] MCHC Auto (RBC) [Mass/Vol]Or dered By: Rd Brown on 01-06-2023 MCHC (RBC) [Mass/Vol] 33.6 g/dL 31.0-37.0 [facility] MCV Auto (RBC) [Entitic vol] Ordered By: Rd Brown on 01-06-2023 MCV (RBC) [Entitic vol] 85.4 fL 78-102 [facility] Monocyte distribution width [Entitic volume] in Blood by AutomatedOrdered By: Rd Brown on 01-06-2023 Monocyte distribution width Auto (Bld) [Entitic vol] 15.43 % 0.00-20.00 [facility] Monocytes Auto (Bld) [#/Vol] Ordered By: Rd Brown on 01-06-2023 Monocytes (Bld) [#/Vol] 1.3 10*3/uL 0.1-1.00 [facility] Monocytes/100 WBC Auto (Bld) Ordered By: Rd Brown on 01-06-2023 Monocytes/100 WBC (Bld) 7.4 % . [facility] Neutrophils Auto (Bld) [#/Vo l]Ordered By: Rd Brown on 01-06-2023 Neutrophils (Bld) [#/Vol] 12.4 10*3/uL 1.2-7.7 [facility] Neutrophils/100 WBC Auto (Bl d)Ordered By: Rd Brown on 01-06-2023 Neutrophils/100 WBC (Bld) 70.1 % . [facility] Nitrite Test strip Ql (U)Ord ered By: Rd Brown on 01-06-2023 Nitrite Ql (U) Negative Negative [facility] No Panel InformationOrdered By: Anette Stout on 01-06-2023 Negative Negative [facility] No Panel InformationOrdered By: Rd Brown on 01-06-2023 > 60 mL/Min [facility] 31.0 U/L 22-51 [facility] 102.00 [facility] Nucleated erythrocytes [Pres ence] in Blood by Automated countOrdered By: Rd Brown on 01-06-2023 Nucleated RBC Auto Ql (Bld) 0.1 /100{WBC} 0-0.5 [facility] Phencyclidine Screen Ql (U)O rdered By: Anette Stout on 01-06-2023 Phencyclidine Ql (U) Negative Negative [facility] Platelet mean volume Auto (B ld) [Entitic vol]Ordered By: Rd Brown on 01-06-2023 Platelet mean volume (Bld) [Entitic vol] 8.5 fL 6.3-10.7 [facility] Platelets Auto (Bld) [#/Vol] Ordered By: Rd Brown on 01-06-2023 Platelets (Bld) [#/Vol] 296 10*3/uL 150-450 [facility] Protein Auto test strip (U) [Mass/Vol]Ordered By: Rd Brown on 01-06-2023 Protein (U) [Mass/Vol] 100 mg/dL [facility] Protein [Mass/volume] in Ser um or PlasmaOrdered By: Rd Brown on 01-06-2023 Protein [Mass/Vol] 7.8 g/dL 6.1-7.9 [facility] RBC Auto (Bld) [#/Vol]Ordere d By: Rd Brown on 01-06-2023 RBC (Bld) [#/Vol] 5.65 10*6/uL 4.10-5.10 [facility] Serum or plasma alanine florez otransferase measurement without P-5'-P (enzymatic activiOrdered By: Rd Brown on 01-06-2023 ALT No additional P-5'-P [Catalytic activity/Vol] 20 U/L 10-60 [facility] Serum or plasma albumin/glob ulin mass ratioOrdered By: Rd Brown on 01-06-2023 Albumin/Globulin [Mass ratio] 1.7 {ratio} [facility] Serum or plasma alkaline justin sphatase measurement (enzymatic activity/volume)Ordered By: Rd Brown on 01-06-2023 ALP [Catalytic activity/Vol] 66 U/L 32-92 [facility] Serum or plasma anion gap de terminationOrdered By: Rd Brown on 01-06-2023 Anion gap [Moles/Vol] 19.4 mmol/L 6.0-15.0 [facility] Serum or plasma aspartate am inotransferase measurement (enzymatic activity/volume)Ordered By: Rd Brown on 01-06-2023 AST [Catalytic activity/Vol] 20 U/L 10-42 [facility] Serum or plasma calcium tammy urement (mass/volume)Ordered By: Rd Brown on 01-06-2023 Calcium [Mass/Vol] 9.8 mg/dL 8.2-10.2 [facility] Serum or plasma chloride judy surement (moles/volume)Ordered By: Rd Brown on 01-06-2023 Chloride [Moles/Vol] 91 mmol/L 95-114 [facility] Serum or plasma creatinine m easurement with calculation of estimated glomerular filtrOrdered By: Rd Brown on 01-06-2023 Creatinine and Glomerular filtration rate.predicted panel (S/P/Bld) 0.86 mg/dL 0.44-1.03 [facility] Serum or plasma glucose tammy urement (mass/volume)Ordered By: Rd Brown on 01-06-2023 Glucose [Mass/Vol] 80 mg/dL 70-100 [facility] Serum or plasma potassium me asurement (moles/volume)Ordered By: Rd Brown on 01-06-2023 Potassium [Moles/Vol] 2.7 mmol/L 3.5-5.1 [facility] Serum or plasma sodium measu rement (moles/volume)Ordered By: Rd Brown on 01-06-2023 Sodium [Moles/Vol] 132 mmol/L 136-146 [facility] Serum or plasma total biliru bin measurement (mass/volume)Ordered By: Rd Brown on 01-06-2023 Bilirubin [Mass/Vol] 1.5 mg/dL 0.3-1.2 [facility] Serum or plasma total carbon dioxide measurement (moles/volume)Ordered By: Rd Brown on 01-06-2023 CO2 [Moles/Vol] 24.3 mmol/L 22.0-30.0 [facility] Serum or plasma urea nitroge n measurement (mass/volume)Ordered By: Rd Brown on 01-06-2023 Urea nitrogen [Mass/Vol] 19 mg/dL 9-23 [facility] Specific gravity Auto test s trip (U) [Rel density]Ordered By: Rd Brown on 01-06-2023 Specific gravity (U) [Rel density] 1.027 1.001-1.03 0 [facility] Squamous epithelial cells de tection in urine sediment by light microscopyOrdered By: Rd Brown on 01-06-2023 Epithelial cells.squamous LM Ql (Urine sed) 10-19 [HPF] 0-2 [facility] Troponin I.cardiac [Mass/vol ume] in Serum or Plasma by High sensitivity methodOrdered By: Federico Randolph on 01-06-2023 Troponin I.cardiac High sensitivity method [Mass/Vol] 6 pg/mL 0-15 [facility] Urine bacteria detection by automated methodOrdered By: Rd Brown on 01-06-2023 Bacteria Auto Ql (U) 1+ None Seen [facility] Urine clarity by refractomet ry automatedOrdered By: Rd Brown on 01-06-2023 Clarity Refractometry automated (U) Cloudy Clear [facility] Urine cocaine detectionOrder ed By: Anette Stout on 01-06-2023 Cocaine Ql (U) Negative Negative [facility] Urine glucose measurement by automated test strip (mass/volume)Ordered By: Rd Brown on 01-06-2023 Glucose Auto test strip (U) [Mass/Vol] Normal mg/dL Normal [facility] Urine hemoglobin detection b y automated test stripOrdered By: Rd Brown on 01-06-2023 Hemoglobin Auto test strip Ql (U) 3+ Negative [facility] Urine lactic acid measuremen tOrdered By: Rd Brown on 01-06-2023 Lactate (U) [Moles/Vol] 1.6 mmol/L 0.5-2.2 [facility] Urine leukocyte esterase det ection by automated test stripOrdered By: Rd Brown on 01-06-2023 Leukocyte esterase Auto test strip Ql (U) 2+ Negative [facility] Urobilinogen Auto test strip (U) [Mass/Vol]Ordered By: Rd Brown on 01-06-2023 Urobilinogen (U) [Mass/Vol] Normal mg/dL Normal [facility] WBC Auto (Bld) [#/Vol]Ordere d By: Rd Brown on 01-06-2023 WBC (Bld) [#/Vol] 17.7 10*3/uL 4.5-13.5 [facility] pH Auto test strip (U)Ordere d By: Rd Brown on 01-06-2023 pH (U) 6.5 [pH] 5.0-9.0 [facility] Albumin [Mass/volume] in Ser um or PlasmaOrdered By: Ravi Arguello on 01-02-2023 Albumin [Mass/Vol] 5.0 g/dL 3.2-5.5 [facility] Automated erythrocytes count in urine sediment (number/area)Ordered By: Ravi Arguello on 01-02-2023 RBC Auto (Urine sed) [#/Area] 3-4 [HPF] 0-4 [facility] Automated leukocytes count i n urine sediment (number/area)Ordered By: Ravi Arguello on 01-02-2023 WBC Auto (Urine sed) [#/Area] 50-100 [HPF] 0-4 [facility] Automated urine hyaline cast s count (number/volume)Ordered By: Ravi Arguello on 01-02-2023 Hyaline casts Auto (U) [#/Vol] None seen [LPF] 0-1 [facility] Basophils Auto (Bld) [#/Vol] Ordered By: Ravi Arguello on 01-02-2023 Basophils (Bld) [#/Vol] 0.1 10*3/uL 0.0-0.1 [facility] Basophils/100 WBC Auto (Bld) Ordered By: Ravi Arguello on 01-02-2023 Basophils/100 WBC (Bld) 0.5 % . [facility] Bilirubin Test strip Ql (U)O rdered By: Ravi Arguello on 01-02-2023 Bilirubin Ql (U) Negative Negative [facility] Casts typing in urine sedime nt by light microscopyOrdered By: Ravi Arguello on 01-02-2023 Casts LM Nom (Urine sed) None seen [LPF] None Seen [facility] Color Auto (U)Ordered By: Jr Arguello on 01-02-2023 Color (U) Yellow Yellow [facility] Eosinophils Auto (Bld) [#/Vo l]Ordered By: Ravi Arguello on 01-02-2023 Eosinophils (Bld) [#/Vol] 0.0 10*3/uL 0.0-0.7 [facility] Eosinophils/100 WBC Auto (Bl d)Ordered By: Ravi Arguello on 01-02-2023 Eosinophils/100 WBC (Bld) 0.0 % . [facility] Erythrocyte distribution wid th Auto (RBC) [Ratio]Ordered By: Ravi Arguello on 01-02-2023 Erythrocyte distribution width (RBC) [Ratio] 13.9 % 11.9-15.3 [facility] Estimated glomerular filtrat ion rate (GFR) non- AmericanOrdered By: Ravi Arguello on 01-02-2023 GFR/1.73 sq M.predicted among non-blacks MDRD (S/P/Bld) [Vol rate/Area] > 60 mL/Min [facility] Globulin Calc (S) [Mass/Vol] Ordered By: Ravi Arguello on 01-02-2023 Globulin (S) [Mass/Vol] 2.9 g/dL [facility] HCG ( test) IA.rapi d Ql (U)Ordered By: Ravi Arguello on 01-02-2023 HCG ( test) Ql (U) Negative [facility] Hematocrit Auto (Bld) [Volum e fraction]Ordered By: Ravi Arguello on 01-02-2023 Hematocrit (Bld) [Volume fraction] 42.1 % 36.0-46.0 [facility] Hemoglobin [Mass/volume] in BloodOrdered By: Ravi Arguello on 01-02-2023 Hemoglobin (Bld) [Mass/Vol] 14.0 g/dL 12.0-16.0 [facility] Ketones Auto test strip (U) [Mass/Vol]Ordered By: Ravi Arguello on 01-02-2023 Ketones (U) [Mass/Vol] 3+ [facility] Leukocytes [#/volume] correc venkata for nucleated erythrocytes in Blood by Automated counOrdered By: Ravi Arguello on 01-02-2023 WBC corrected for nucl RBC Auto (Bld) [#/Vol] 14.1 10*3/uL 4.5-13.5 [facility] Lymphocytes Auto (Bld) [#/Vo l]Ordered By: Ravi Arguello on 01-02-2023 Lymphocytes (Bld) [#/Vol] 1.4 10*3/uL 1.20-4.8 [facility] Lymphocytes/100 WBC Auto (Bl d)Ordered By: Ravi Arguello on 01-02-2023 Lymphocytes/100 WBC (Bld) 10.1 % . [facility] MCH Auto (RBC) [Entitic mass ]Ordered By: Ravi Arguello on 01-02-2023 MCH (RBC) [Entitic mass] 28.6 pg 25.0-35.0 [facility] MCHC Auto (RBC) [Mass/Vol]Or dered By: Ravi Arguello on 01-02-2023 MCHC (RBC) [Mass/Vol] 33.2 g/dL 31.0-37.0 [facility] MCV Auto (RBC) [Entitic vol] Ordered By: Ravi Arguello on 01-02-2023 MCV (RBC) [Entitic vol] 86.2 fL 78-102 [facility] Monocyte distribution width [Entitic volume] in Blood by AutomatedOrdered By: Ravi Arguello on 01-02-2023 Monocyte distribution width Auto (Bld) [Entitic vol] 16.52 % 0.00-20.00 [facility] Monocytes Auto (Bld) [#/Vol] Ordered By: Ravi Arguello on 01-02-2023 Monocytes (Bld) [#/Vol] 1.0 10*3/uL 0.1-1.00 [facility] Monocytes/100 WBC Auto (Bld) Ordered By: Ravi Arguello on 01-02-2023 Monocytes/100 WBC (Bld) 7.0 % . [facility] Neutrophils Auto (Bld) [#/Vo l]Ordered By: Ravi Arguello on 01-02-2023 Neutrophils (Bld) [#/Vol] 11.6 10*3/uL 1.2-7.7 [facility] Neutrophils/100 WBC Auto (Bl d)Ordered By: Ravi Arguello on 01-02-2023 Neutrophils/100 WBC (Bld) 82.4 % . [facility] Nitrite Test strip Ql (U)Ord ered By: Ravi Arguello on 01-02-2023 Nitrite Ql (U) Negative Negative [facility] No Panel InformationOrdered By: Ravi Arguello on 01-02-2023 > 60 mL/Min [facility] 29.0 U/L 22-51 [facility] 86.85 [facility] Nucleated erythrocytes [Pres ence] in Blood by Automated countOrdered By: Ravi Arguello on 01-02-2023 Nucleated RBC Auto Ql (Bld) 0.0 /100{WBC} 0-0.5 [facility] Platelet mean volume Auto (B ld) [Entitic vol]Ordered By: Ravi Arguello on 01-02-2023 Platelet mean volume (Bld) [Entitic vol] 8.4 fL 6.3-10.7 [facility] Platelets Auto (Bld) [#/Vol] Ordered By: Ravi Arguello on 01-02-2023 Platelets (Bld) [#/Vol] 299 10*3/uL 150-450 [facility] Protein Auto test strip (U) [Mass/Vol]Ordered By: Ravi Arguello on 01-02-2023 Protein (U) [Mass/Vol] 100 mg/dL [facility] Protein [Mass/volume] in Ser um or PlasmaOrdered By: Ravi Arguello on 01-02-2023 Protein [Mass/Vol] 7.9 g/dL 6.1-7.9 [facility] RBC Auto (Bld) [#/Vol]Ordere d By: Ravi Arguello on 01-02-2023 RBC (Bld) [#/Vol] 4.89 10*6/uL 4.10-5.10 [facility] Serum or plasma alanine florez otransferase measurement without P-5'-P (enzymatic activiOrdered By: Ravi Arguello on 01-02-2023 ALT No additional P-5'-P [Catalytic activity/Vol] 26 U/L 10-60 [facility] Serum or plasma albumin/glob ulin mass ratioOrdered By: Ravi Arguello on 01-02-2023 Albumin/Globulin [Mass ratio] 1.7 {ratio} [facility] Serum or plasma alkaline justin sphatase measurement (enzymatic activity/volume)Ordered By: Ravi Arguello on 01-02-2023 ALP [Catalytic activity/Vol] 60 U/L 32-92 [facility] Serum or plasma anion gap de terminationOrdered By: Ravi Arguello on 01-02-2023 Anion gap [Moles/Vol] 16.4 mmol/L 6.0-15.0 [facility] Serum or plasma aspartate am inotransferase measurement (enzymatic activity/volume)Ordered By: Ravi Arguello on 01-02-2023 AST [Catalytic activity/Vol] 32 U/L 10-42 [facility] Serum or plasma calcium tammy urement (mass/volume)Ordered By: Ravi Arguello on 01-02-2023 Calcium [Mass/Vol] 9.8 mg/dL 8.2-10.2 [facility] Serum or plasma chloride judy surement (moles/volume)Ordered By: Ravi Arguello on 01-02-2023 Chloride [Moles/Vol] 106 mmol/L 95-114 [facility] Serum or plasma creatinine m easurement with calculation of estimated glomerular filtrOrdered By: Ravi Arguello on 01-02-2023 Creatinine and Glomerular filtration rate.predicted panel (S/P/Bld) 1.01 mg/dL 0.44-1.03 [facility] Serum or plasma glucose tammy urement (mass/volume)Ordered By: Ravi Arguello on 01-02-2023 Glucose [Mass/Vol] 123 mg/dL 70-100 [facility] Serum or plasma potassium me asurement (moles/volume)Ordered By: Ravi Arguello on 01-02-2023 Potassium [Moles/Vol] 3.2 mmol/L 3.5-5.1 [facility] Serum or plasma sodium measu rement (moles/volume)Ordered By: Ravi Arguello on 01-02-2023 Sodium [Moles/Vol] 142 mmol/L 136-146 [facility] Serum or plasma total biliru bin measurement (mass/volume)Ordered By: Ravi Arguello on 01-02-2023 Bilirubin [Mass/Vol] 0.8 mg/dL 0.3-1.2 [facility] Serum or plasma total carbon dioxide measurement (moles/volume)Ordered By: Ravi Arguello on 01-02-2023 CO2 [Moles/Vol] 22.8 mmol/L 22.0-30.0 [facility] Serum or plasma urea nitroge n measurement (mass/volume)Ordered By: Ravi Arguello on 01-02-2023 Urea nitrogen [Mass/Vol] 22 mg/dL 9-23 [facility] Specific gravity Auto test s trip (U) [Rel density]Ordered By: Ravi Arguello on 01-02-2023 Specific gravity (U) [Rel density] 1.036 1.001-1.03 0 [facility] Squamous epithelial cells de tection in urine sediment by light microscopyOrdered By: Ravi Arguello on 02-05-2023 Epithelial cells.squamous LM Ql (Urine sed) Innumerable [HPF] 0-2 [facility] Urine bacteria detection by automated methodOrdered By: Ravi Arguelol on 01-02-2023 Bacteria Auto Ql (U) 3+ None Seen [facility] Urine clarity by refractomet ry automatedOrdered By: Ravi Arguello on 01-02-2023 Clarity Refractometry automated (U) Turbid Clear [facility] Urine culture routineOrdered By: Ravi Arguello on 01-02-2023 Bacteria identified Cx Nom (U) [facility] Urine glucose measurement by automated test strip (mass/volume)Ordered By: Ravi Arguello on 01-02-2023 Glucose Auto test strip (U) [Mass/Vol] Normal mg/dL Normal [facility] Urine hemoglobin detection b y automated test stripOrdered By: Ravi Arguello on 01-02-2023 Hemoglobin Auto test strip Ql (U) Negative Negative [facility] Urine leukocyte esterase det ection by automated test stripOrdered By: Ravi Arguello on 01-02-2023 Leukocyte esterase Auto test strip Ql (U) 3+ Negative [facility] Urobilinogen Auto test strip (U) [Mass/Vol]Ordered By: Ravi Arguello on 01-02-2023 Urobilinogen (U) [Mass/Vol] Normal mg/dL Normal [facility] WBC Auto (Bld) [#/Vol]Ordere d By: Ravi Arguello on 01-02-2023 WBC (Bld) [#/Vol] 14.1 10*3/uL 4.5-13.5 [facility] pH Auto test strip (U)Ordere d By: Ravi Arguello on 01-02-2023 pH (U) 6.0 [pH] 5.0-9.0 [facility] CULTURE URINEon 01-01-2023 CULTURE URINE Culture Observations : LIGHT GROWTH OF MIXED GENITAL JORI. NO POTENTIAL PATHOGENS SEEN. Normal [facility] Comment on above: Performed By: #### U RCX #### [facility] [address] [place] [address] Dr. Dacia Ackerman [facility]on SARS-CoV-2 (COVID-19) RNA JANAK+probe Ql (Unsp spec) Not detected Normal NOT DETECTED [facility] Comment on above: Result Comment: When diagnostic [...] for this test is supported by the Bacteriology Teacher of Health and Human Service's declaration that [...] used). Performed By: #### C VDTBH #### [facility] [address] [place] [address] Dr. Dacia Ackerman DRUG SCREEN RAPID (URINE)on 01-01-2023 AMP Negative Normal NEGATIVE [facility] Comment on above: Performed By: #### D RUGRPD #### [facility] [address] [place] [address] Dr. Dacia Ackerman BAR Negative Normal NEGATIVE [facility] Comment on above: Performed By: #### D RUGRPD #### [facility] [address] [place] [address] Dr. Dacia Ackerman BUP Negative Normal NEGATIVE [facility] Comment on above: Performed By: #### D RUGRPD #### [facility] [address] [place] [address] Dr. Dacia Ackerman BZO Negative Normal NEGATIVE [facility] Comment on above: Performed By: #### D RUGRPD #### [facility] [address] [place] [address] Dr. Dacia Ackerman MELINA Negative Normal NEGATIVE [facility] Comment on above: Performed By: #### D RUGRPD #### [facility] [address] [place] [address] Dr. Dacia Ackerman CUT-OFFS SEE BELOW Normal [facility] Comment on above: Result Comment: AMP (Amphetamine): 500ng/mL, BAR (Barbituates): 200 ng/mL, BZO (Benzodiazepines): 150 ng/mL, BUP (Buprenorphine): 10 ng/mL, MELINA (Cocaine): 150 ng/mL, mAMP (Methamphetamine): 500 ng/mL, MTD (Methadone): 200 ng/mL, OPI (Opiates): 100 ng/mL, OXY (Oxycodone): 100 ng/mL, PCP (Phencyclidine): 25 ng/mL, PPX (Propoxyphene): 300 ng/mL, THC (Cannabinoids): 50 ng/mL, TCA (Trycyclic Antidepressants): 300 ng/mL Performed By: #### D RUGRPD #### [facility] [address] [place] [address] Dr. Dacia Ackerman DRUG CUT HEADER DRUG CLASS TEST SYST EM CUT-OFF CONCENTRATIONS ARE FOLLOWS: Normal [facility] Comment on above: Performed By: #### D RUGRPD #### [facility] [address] [place] [address] Dr. Dacia Ackerman mAMP Negative Normal NEGATIVE [facility] Comment on above: Performed By: #### D RUGRPD #### [facility] [address] [place] [address] Dr. Dacia Ackerman MTD Negative Normal NEGATIVE [facility] Comment on above: Performed By: #### D RUGRPD #### [facility] [address] [place] [address] Dr. Dacia Ackerman OPI Negative Normal NEGATIVE [facility] Comment on above: Performed By: #### D RUGRPD #### [facility] [address] [place] [address] Dr. Dacia Ackerman OXY Negative Normal NEGATIVE [facility] Comment on above: Performed By: #### D RUGRPD #### [facility] [address] [place] [address] Dr. Dacia Ackerman PCP Negative Normal NEGATIVE [facility] Comment on above: Performed By: #### D RUGRPD #### [facility] [address] [address] [address] Dacia Ackerman PPX Negative Normal NEGATIVE [facility] Comment on above: Performed By: #### D RUGRPD #### [facility] [address] [place] [address] Dr. Dacia Ackerman TCA Negative Normal NEGATIVE [facility] Comment on above: Performed By: #### D RUGRPD #### [facility] [address] [place] [address] Dr. Dacia Ackerman THC Positive Abnormal NEGATIVE [facility] Comment on above: Performed By: #### D RUGRPD #### [facility] [address] [place] [address] Dr. Dacia Ackerman ER URINE PROFILEon 3 Bilirubin Ql (U) SMALL Abnormal NEGATIVE [facility] Comment on above: Performed By: #### P REGU, ERUR, UMICRO #### [facility] [address] [place] [address] Dr. Dacia Ackerman Clarity (U) CLEAR Normal CLEAR [facility] Comment on above: Performed By: #### P REGU, ERUR, UMICRO #### [facility] [address] [place] [address] Dr. Dacia Ackerman Color (U) YELLOW Normal YELLOW [facility] Comment on above: Performed By: #### P REGU, ERUR, UMICRO #### [facility] [address] [place] [address] Dr. Dacia OLIVAS A micrscopic examina tion will be performed if indicated. Normal [facility] Comment on above: Performed By: #### P REGU, ERUR, UMICRO #### [facility] [address] [place] [address] Dr. Dacia Ackerman Glucose Ql (U) Negative Normal NEGATIVE [facility] Comment on above: Performed By: #### P REGU, ERUR, UMICRO #### [facility] [address] [place] [address] Dr. Dacia Ackerman Hemoglobin Ql (U) Negative Normal NEGATIVE [facility] Comment on above: Performed By: #### P REGU, ERUR, UMICRO #### [facility] [address] [address] [address] Dacia Ackerman Ketones Ql (U) >=80 Abnormal NEGATIVE [facility] Comment on above: Performed By: #### P REGU, ERUR, UMICRO #### [facility] [address] [address] [address] Dacia Ackerman LEUKOCYTES TRACE Abnormal NEGATIVE [facility] Comment on above: Performed By: #### P REGU, ERUR, UMICRO #### [facility] [address] [address] [address] Dacia Ackerman Nitrite Ql (U) Negative Normal NEGATIVE [facility] Comment on above: Performed By: #### P REGU, ERUR, UMICRO #### [facility] [address] [place] [address] Dr. Dacia Ackerman pH (U) 7.5 [pH] Normal 5-9 [facility] Comment on above: Performed By: #### P REGU, ERUR, UMICRO #### [facility] [address] [address] [address] Dacia Ackerman Protein (U) [Mass/Vol] 100 mg/dL Abnormal NEGAT JOAO/ TRACE [facility] Comment on above: Performed By: #### P REGU, ERUR, UMICRO #### [facility] [address] [address] [address] Dacia Ackerman SPEC GRAVITY 1.020 Normal 1.005-<=1. 025 [facility] Comment on above: Performed By: #### P REGU, ERUR, UMICRO #### [facility] [address] [address] [address] Dacia Ackerman UR MICRO IND INDICATED Normal [facility] Comment on above: Performed By: #### P REGU, ERUR, UMICRO #### [facility] [address] [address] [address] Dacia Ackerman Urobilinogen Qn (U) 1.0 {Kaykay'U}/dL Normal 0.2 - 1. 0 [facility] Comment on above: Performed By: #### P REGU, ERUR, UMICRO #### [facility] [address] [place] [address] Dr. Dacia Ackerman INFLUENZA A AND B AGon 01-01 INFLUANEGH SEE BELOW Normal [facility] Comment on above: Result Comment: Nega tive for Flu A protein angiten. Infection due to Flu A cannot be ruled out. Flu A angiten in the sample may be below the detection limit of the test. Performed By: #### I NFLUAB #### [facility] [address] [place] [address] Dr. Dacia Ackerman INFLUBNEGH SEE BELOW Normal [facility] Comment on above: Result Comment: Nega tive for Flu B protein antigen. Infection due to Flu B cannot be ruled out. Flu B antigen in the sample may be below the detection limit of the test. Performed By: #### I NFLUAB #### [facility] [address] [place] [address] Dr. Dacia Ackerman INFLUENZA A AG Negative Normal NEGATIVE SEE COMMENT [facility] Comment on above: Performed By: #### I NFLUAB #### [facility] [address] [place] [address] Dr. Dacia Ackerman INFLUENZA B AG Negative Normal NEGATIVE SEE COMMENT [facility] Comment on above: Performed By: #### I NFLUAB #### [facility] [address] [place] [address] Dr. Dacia Ackerman URon 01-01-2023 , QUAL Negative Normal NEGATIVE [facility] Comment on above: Performed By: #### P REGU, ERUR, UMICRO #### [facility] [address] [place] [address] Dr. Dacia Ackerman URINE MICROSCOPIC ONLYon BACTERIA MODERATE Abnormal NONE SEEN [facility] Comment on above: Performed By: #### P REGU, ERUR, UMICRO #### [facility] [address] [place] [address] Dr. Dacia Ackerman Bacteria identified Cx Nom (U) INDICATED Normal [facility] Comment on above: Performed By: #### P REGU, ERUR, UMICRO #### [facility] [address] [address] [address] Dacia Ackerman CAST NONE SEEN Normal NONE SEEN [facility] Comment on above: Performed By: #### P REGU, ERUR, UMICRO #### [facility] [address] [address] [address] Dacia Ackerman Crystals LM Nom (Urine sed) NONE SEEN Normal NONE SEEN [facility] Comment on above: Performed By: #### P REGU, ERUR, UMICRO #### [facility] [address] [address] [address] Dacia Ackerman Epithelial cells LM Ql (Urine sed) MANY Abnormal NONE SEEN /RARE [facility] Comment on above: Performed By: #### P REGU, ERUR, UMICRO #### [facility] [address] [place] [address] Dr. Dacia Ackerman MUCOUS SMALL Abnormal NONE SEEN [facility] Comment on above: Performed By: #### P REGU, ERUR, UMICRO #### [facility] [address] [address] [address] Dacia Ackerman RBC NONE SEEN Abnormal 0-2 [facility] Comment on above: Performed By: #### P REGU, ERUR, UMICRO #### [facility] [address] [place] [address] Dr. Dacia Ackerman WBC 5-10 Abnormal NONE SEEN [facility] Comment on above: Performed By: #### P REGU, ERUR, UMICRO #### [facility] [address] [place] [address] Dr. Dacia Ackerman XR CHEST 1 Von [...] KIA ARVIZU Date: 2023-01-01 13:00 Normal [facility] Automated erythrocytes count in urine sediment (number/area)Ordered By: Federico Randolph on 12-31-2022 RBC Auto (Urine sed) [#/Area] 0-1 [HPF] 0-4 [facility] Automated leukocytes count i n urine sediment (number/area)Ordered By: Federico Randolph on 12-31-2022 WBC Auto (Urine sed) [#/Area] 20-49 [HPF] 0-4 [facility] Bacteria identified Cx Nom ( U)Ordered By: Federico Randolph on 12-31-2022 Urine culture routine Staphylococcus epidermidis [facility] Bilirubin Test strip Ql (U)O rdered By: Federico Randolph on 12-31-2022 Bilirubin Ql (U) Negative Negative [facility] COVID-19 SOFIAOrdered By: Deep Randolph on 12-31-2022 SARS-CoV+SARS-CoV-2 (COVID-19) Ag IA.rapid Ql (Resp) Negative Negative [facility] Casts typing in urine sedime nt by light microscopyOrdered By: Federico Randolph on 12-31-2022 Casts LM Nom (Urine sed) None seen [LPF] None Seen [facility] Color Auto (U)Ordered By: Deep Randolph on 12-31-2022 Color (U) Yellow Yellow [facility] HCG ( test) IA.rapi d Ql (U)Ordered By: Federico Randolph on 12-31-2022 HCG ( test) Ql (U) Negative [facility] Influenza virus A and B anti gen detection by immunoassayOrdered By: Federico Randolph on 12-31-2022 FLUAV+FLUBV Ag IA Ql (Unsp spec) [facility] Ketones Auto test strip (U) [Mass/Vol]Ordered By: Federico Randolph on 12-31-2022 Ketones (U) [Mass/Vol] 3+ [facility] Nit[facility] Test strip Ql (U)Ord ered By: Federico Randolph on 12-31-2022 Nitrite Ql (U) Negative Negative [facility] No Panel InformationOrdered By: Federico Randolph on 12-31-2022 None seen [LPF] 0-8 [facility] Protein Auto test strip (U) [Mass/Vol]Ordered By: Federico Randolph on 12-31-2022 Protein (U) [Mass/Vol] 100 mg/dL [facility] Specific gravity Auto test s trip (U) [Rel density]Ordered By: Federico Randolph on 12-31-2022 Specific gravity (U) [Rel density] 1.026 1.001-1.03 0 [facility] Squamous epithelial cells de tection in urine sediment by light microscopyOrdered By: Federico Randolph on 12-31-2022 Epithelial cells.squamous LM Ql (Urine sed) Innumerable [HPF] 0-2 [facility] Urine bacteria detection by automated methodOrdered By: Federico Randolph on 12-31-2022 Bacteria Auto Ql (U) 3+ None Seen [facility] Urine clarity by refractomet ry automatedOrdered By: Federico Randolph on 12-31-2022 Clarity Refractometry automated (U) Turbid Clear [facility] Urine glucose measurement by automated test strip (mass/volume)Ordered By: Federico Randolph on 12-31-2022 Glucose Auto test strip (U) [Mass/Vol] Normal mg/dL Normal [facility] Urine hemoglobin detection b y automated test stripOrdered By: Federico Randolph on 12-31-2022 Hemoglobin Auto test strip Ql (U) Negative Negative [facility] Urine leukocyte esterase det ection by automated test stripOrdered By: Federico Randolph on 12-31-2022 Leukocyte esterase Auto test strip Ql (U) 2+ Negative [facility] Urobilinogen Auto test strip (U) [Mass/Vol]Ordered By: Federico Randolph on 12-31-2022 Urobilinogen (U) [Mass/Vol] Normal mg/dL Normal [facility] pH Auto test strip (U)Ordere d By: Federico Randolph on 12-31-2022 pH (U) [pH] 5.0-9.0 [facility] Amphetamine Screen Ql (U)Ord ered By: Corey Newberry on 11-09-2022 Amphetamines Ql (U) Negative Negative [facility] Barbiturates [Presence] in U rineOrdered By: Corey Newberry on 11-09-2022 Barbiturates Ql (U) Negative Negative [facility] Basophils Auto (Bld) [#/Vol] Ordered By: Corey Newberry on 11-09-2022 Basophils (Bld) [#/Vol] 0.0 10*3/uL 0.0-0.1 [facility] Basophils/100 WBC Auto (Bld) Ordered By: Corey Newberry on 11-09-2022 Basophils/100 WBC (Bld) 0.3 % . [facility] Benzodiazepines [Presence] i n UrineOrdered By: Corey Newberry on 11-09-2022 Benzodiazepines Ql (U) Negative Negative [facility] Bilirubin Test strip Ql (U)O rdered By: Corey Newberry on 11-09-2022 Bilirubin Ql (U) Negative Negative [facility] Body fluid albumin measureme nt (mass/volume)Ordered By: Corey Newberry on 11-09-2022 Albumin (Body fld) [Mass/Vol] 4.2 g/dL 3.2-5.5 [facility] Cannabinoids [Presence] in U rine by Screen methodOrdered By: Corey Newberry on 11-09-2022 Cannabinoids Screen Ql (U) Positive Negative [facility] Color Auto (U)Ordered By: Nazia Newberry on 11-09-2022 Color (U) Yellow Yellow [facility] Eosinophils Auto (Bld) [#/Vo l]Ordered By: Corey Newberry on 11-09-2022 Eosinophils (Bld) [#/Vol] 0.1 10*3/uL 0.0-0.7 [facility] Eosinophils/100 WBC Auto (Bl d)Ordered By: Corey Newberry on 11-09-2022 Eosinophils/100 WBC (Bld) 0.8 % . [facility] Erythrocyte distribution wid th Auto (RBC) [Ratio]Ordered By: Corey Newberry on 11-09-2022 Erythrocyte distribution width (RBC) [Ratio] 13.8 % 11.9-15.3 [facility] Estimated glomerular filtrat ion rate (GFR) non- AmericanOrdered By: Corey Newberry on 11-09-2022 GFR/1.73 sq M.predicted among non-blacks MDRD (S/P/Bld) [Vol rate/Area] > 60 mL/Min [facility] Globulin Calc (S) [Mass/Vol] Ordered By: Corey Newberry on 11-09-2022 Globulin (S) [Mass/Vol] 2.4 g/dL [facility] HCG ( test) IA.rapi d Ql (U)Ordered By: Corey Newberry on 11-09-2022 HCG ( test) Ql (U) Negative [facility] Hematocrit Auto (Bld) [Volum e fraction]Ordered By: Corey Newberry on 11-09-2022 Hematocrit (Bld) [Volume fraction] 41.0 % 36.0-46.0 [facility] Hemoglobin [Mass/volume] in BloodOrdered By: Corey Newberry on 11-09-2022 Hemoglobin (Bld) [Mass/Vol] 13.4 g/dL 12.0-16.0 [facility] Ketones Auto test strip (U) [Mass/Vol]Ordered By: Corey Newberry on 11-09-2022 Ketones (U) [Mass/Vol] Negative Negative [facility] Leukocytes [#/volume] correc venkata for nucleated erythrocytes in Blood by Automated counOrdered By: Corey Newberry on 11-09-2022 WBC corrected for nucl RBC Auto (Bld) [#/Vol] 11.7 10*3/uL 4.5-13.5 [facility] Lymphocytes Auto (Bld) [#/Vo l]Ordered By: Corey Newberry on 11-09-2022 Lymphocytes (Bld) [#/Vol] 1.4 10*3/uL 1.20-4.8 [facility] Lymphocytes/100 WBC Auto (Bl d)Ordered By: Corey Newberry on 11-09-2022 Lymphocytes/100 WBC (Bld) 12.1 % . [facility] MCH Auto (RBC) [Entitic mass ]Ordered By: Corey Newberry on 11-09-2022 MCH (RBC) [Entitic mass] 28.1 pg 25.0-35.0 [facility] MCHC Auto (RBC) [Mass/Vol]Or dered By: Corey Newberry on 11-09-2022 MCHC (RBC) [Mass/Vol] 32.8 g/dL 31.0-37.0 [facility] MCV Auto (RBC) [Entitic vol] Ordered By: Corey Newberry on 11-09-2022 MCV (RBC) [Entitic vol] 85.7 fL 78-102 [facility] Monocyte distribution width [Entitic volume] in Blood by AutomatedOrdered By: Corey Newberry on 11-09-2022 Monocyte distribution width Auto (Bld) [Entitic vol] 16.08 % 0.00-20.00 [facility] Monocytes Auto (Bld) [#/Vol] Ordered By: Corey Newberry on 11-09-2022 Monocytes (Bld) [#/Vol] 0.5 10*3/uL 0.1-1.00 [facility] Monocytes/100 WBC Auto (Bld) Ordered By: Corey Newberry on 11-09-2022 Monocytes/100 WBC (Bld) 4.7 % . [facility] Neutrophils Auto (Bld) [#/Vo l]Ordered By: Corey Newberry on 11-09-2022 Neutrophils (Bld) [#/Vol] 9.6 10*3/uL 1.2-7.7 [facility] Neutrophils/100 WBC Auto (Bl d)Ordered By: Corey Newberry on 11-09-2022 Neutrophils/100 WBC (Bld) 82.1 % . [facility] Nitrite Test strip Ql (U)Ord ered By: Corey Newberry on 11-09-2022 Nitrite Ql (U) Negative Negative [facility] No Panel InformationOrdered By: Corey Newberry on 11-09-2022 Negative Negative [facility] > 60 mL/Min [facility] 118.86 [facility] Nucleated erythrocytes [Pres ence] in Blood by Automated countOrdered By: Corey Newberry on 11-09-2022 Nucleated RBC Auto Ql (Bld) 0.1 /100{WBC} 0-0.5 [facility] Phencyclidine Screen Ql (U)O rdered By: Corey Newberry on 11-09-2022 Phencyclidine Ql (U) Negative Negative [facility] Platelet mean volume Auto (B ld) [Entitic vol]Ordered By: Corey Newberry on 11-09-2022 Platelet mean volume (Bld) [Entitic vol] 8.5 fL 6.3-10.7 [facility] Platelets Auto (Bld) [#/Vol] Ordered By: Corey Newberry on 11-09-2022 Platelets (Bld) [#/Vol] 274 10*3/uL 150-450 [facility] Protein Auto test strip (U) [Mass/Vol]Ordered By: Corey Newberry on 11-09-2022 Protein (U) [Mass/Vol] Negative Negative [facility] Protein [Mass/volume] in Ser um or PlasmaOrdered By: Corey Newberry on 11-09-2022 Protein [Mass/Vol] 6.6 g/dL 6.1-7.9 [facility] RBC Auto (Bld) [#/Vol]Ordere d By: Corey Newberry on 11-09-2022 RBC (Bld) [#/Vol] 4.78 10*6/uL 4.10-5.10 [facility] Serum or plasma alanine florez otransferase measurement without P-5'-P (enzymatic activiOrdered By: Corey Newberry on 11-09-2022 ALT No additional P-5'-P [Catalytic activity/Vol] 67 U/L 10-60 [facility] Serum or plasma albumin/glob ulin mass ratioOrdered By: Corey Newberry on 11-09-2022 Albumin/Globulin [Mass ratio] 1.8 {ratio} [facility] Serum or plasma alkaline justin sphatase measurement (enzymatic activity/volume)Ordered By: Corey Newberry on 11-09-2022 ALP [Catalytic activity/Vol] 59 U/L 32-92 [facility] Serum or plasma anion gap de terminationOrdered By: Corey Newberry on 11-09-2022 Anion gap [Moles/Vol] 19.7 mmol/L 6.0-15.0 [facility] Serum or plasma aspartate am inotransferase measurement (enzymatic activity/volume)Ordered By: Corey Newberry on 11-09-2022 AST [Catalytic activity/Vol] 48 U/L 10-42 [facility] Serum or plasma calcium tammy urement (mass/volume)Ordered By: Corey Newberry on 11-09-2022 Calcium [Mass/Vol] 9.6 mg/dL 8.2-10.2 [facility] Serum or plasma chloride judy surement (moles/volume)Ordered By: Corey Newberry on 11-09-2022 Chloride [Moles/Vol] 98 mmol/L 95-114 [facility] Serum or plasma creatinine m easurement with calculation of estimated glomerular filtrOrdered By: Corey Newberry on 11-09-2022 Creatinine and Glomerular filtration rate.predicted panel (S/P/Bld) 0.76 mg/dL 0.44-1.03 [facility] Serum or plasma glucose tammy urement (mass/volume)Ordered By: Corey Newberry on 11-09-2022 Glucose [Mass/Vol] 110 mg/dL 70-100 [facility] Serum or plasma potassium me asurement (moles/volume)Ordered By: Corey Newberry on 11-09-2022 Potassium [Moles/Vol] 3.4 mmol/L 3.5-5.1 [facility] Serum or plasma sodium measu rement (moles/volume)Ordered By: Corey Newberry on 11-09-2022 Sodium [Moles/Vol] 137 mmol/L 136-146 [facility] Serum or plasma total biliru bin measurement (mass/volume)Ordered By: Corey Newberry on 11-09-2022 Bilirubin [Mass/Vol] 0.5 mg/dL 0.3-1.2 [facility] Serum or plasma total carbon dioxide measurement (moles/volume)Ordered By: Corey Newberry on 11-09-2022 CO2 [Moles/Vol] 22.7 mmol/L 22.0-30.0 [facility] Serum or plasma urea nitroge n measurement (mass/volume)Ordered By: Corey Newberry on 11-09-2022 Urea nitrogen [Mass/Vol] 3 mg/dL 9-23 [facility] Specific gravity Auto test s trip (U) [Rel density]Ordered By: Corey Newberry on 11-09-2022 Specific gravity (U) [Rel density] 1.009 1.001-1.03 0 [facility] Urine clarity by refractomet ry automatedOrdered By: Corey Newberry on 11-09-2022 Clarity Refractometry automated (U) Clear Clear [facility] Urine cocaine detectionOrder ed By: Corey Newberry on 11-09-2022 Cocaine Ql (U) Negative Negative [facility] Urine glucose measurement by automated test strip (mass/volume)Ordered By: Corey Newberry on 11-09-2022 Glucose Auto test strip (U) [Mass/Vol] Normal mg/dL Normal [facility] Urine hemoglobin detection b y automated test stripOrdered By: Corey Newberry on 11-09-2022 Hemoglobin Auto test strip Ql (U) Negative Negative [facility] Urine leukocyte esterase det ection by automated test stripOrdered By: Corey Newberry on 11-09-2022 Leukocyte esterase Auto test strip Ql (U) Negative Negative [facility] Urobilinogen Auto test strip (U) [Mass/Vol]Ordered By: Corey Newberry on 11-09-2022 Urobilinogen (U) [Mass/Vol] Normal mg/dL Normal [facility] WBC Auto (Bld) [#/Vol]Ordere d By: Corey Newberry on 11-09-2022 WBC (Bld) [#/Vol] 11.7 10*3/uL 4.5-13.5 [facility] pH Auto test strip (U)Ordere d By: Corey Newberry on 11-09-2022 pH (U) [pH] 5.0-9.0 [facility] Albumin [Mass/volume] in Ser um or PlasmaOrdered By: Art Bianchi on 11-07-2022 Albumin [Mass/Vol] 4.6 g/dL 3.2-5.5 [facility] Automated erythrocytes count in urine sediment (number/area)Ordered By: Art Bianchi on 11-07-2022 RBC Auto (Urine sed) [#/Area] 0-1 [HPF] 0-4 [facility] Automated leukocytes count i n urine sediment (number/area)Ordered By: Art Bianchi on 11-07-2022 WBC Auto (Urine sed) [#/Area] 3-4 [HPF] 0-4 [facility] Basophils Auto (Bld) [#/Vol] Ordered By: Art Bianchi on 11-07-2022 Basophils (Bld) [#/Vol] 0.1 10*3/uL 0.0-0.1 [facility] Basophils/100 WBC Auto (Bld) Ordered By: Art Bianchi on 11-07-2022 Basophils/100 WBC (Bld) 1.0 % . [facility] Bilirubin Test strip Ql (U)O rdered By: Art Bianchi on 11-07-2022 Bilirubin Ql (U) Negative Negative [facility] Color Auto (U)Ordered By: Adrian red Tash on 11-07-2022 Color (U) Yellow Yellow [facility] Eosinophils Auto (Bld) [#/Vo l]Ordered By: Art Bianchi on 11-07-2022 Eosinophils (Bld) [#/Vol] 0.1 10*3/uL 0.0-0.7 [facility] Eosinophils/100 WBC Auto (Bl d)Ordered By: Art Bianchi on 11-07-2022 Eosinophils/100 WBC (Bld) 1.2 % . [facility] Erythrocyte distribution wid th Auto (RBC) [Ratio]Ordered By: Art Bianchi on 11-07-2022 Erythrocyte distribution width (RBC) [Ratio] 14.0 % 11.9-15.3 [facility] Estimated glomerular filtrat ion rate (GFR) non- AmericanOrdered By: Art Bianchi on 11-07-2022 GFR/1.73 sq M.predicted among non-blacks MDRD (S/P/Bld) [Vol rate/Area] > 60 mL/Min [facility] Globulin Calc (S) [Mass/Vol] Ordered By: Art Bianchi on 11-07-2022 Globulin (S) [Mass/Vol] 2.7 g/dL [facility] HCG ( test) IA.rapi d Ql (U)Ordered By: Art Bianchi on 11-07-2022 HCG ( test) Ql (U) Negative [facility] Hematocrit Auto (Bld) [Volum e fraction]Ordered By: Art Bianchi on 11-07-2022 Hematocrit (Bld) [Volume fraction] 43.2 % 36.0-46.0 [facility] Hemoglobin [Mass/volume] in BloodOrdered By: Art Bianchi on 11-07-2022 Hemoglobin (Bld) [Mass/Vol] 14.8 g/dL 12.0-16.0 [facility] Ketones Auto test strip (U) [Mass/Vol]Ordered By: Art Bianchi on 11-07-2022 Ketones (U) [Mass/Vol] 1+ Negative [facility] Leukocytes [#/volume] correc venkata for nucleated erythrocytes in Blood by Automated counOrdered By: Art Bianchi on 11-07-2022 WBC corrected for nucl RBC Auto (Bld) [#/Vol] 10.3 10*3/uL 4.5-13.5 [facility] Lymphocytes Auto (Bld) [#/Vo l]Ordered By: Art Bianchi on 11-07-2022 Lymphocytes (Bld) [#/Vol] 2.1 10*3/uL 1.20-4.8 [facility] Lymphocytes/100 WBC Auto (Bl d)Ordered By: Art Bianchi on 11-07-2022 Lymphocytes/100 WBC (Bld) 20.8 % . [facility] MCH Auto (RBC) [Entitic mass ]Ordered By: Art Bianchi on 11-07-2022 MCH (RBC) [Entitic mass] 28.8 pg 25.0-35.0 [facility] MCHC Auto (RBC) [Mass/Vol]Or dered By: Art Bianchi on 11-07-2022 MCHC (RBC) [Mass/Vol] 34.3 g/dL 31.0-37.0 [facility] MCV Auto (RBC) [Entitic vol] Ordered By: Art Bianchi on 11-07-2022 MCV (RBC) [Entitic vol] 84.1 fL 78-102 [facility] Monocyte distribution width [Entitic volume] in Blood by AutomatedOrdered By: Art Bianchi on 11-07-2022 Monocyte distribution width Auto (Bld) [Entitic vol] 17.07 % 0.00-20.00 [facility] Monocytes Auto (Bld) [#/Vol] Ordered By: Art Bianchi on 11-07-2022 Monocytes (Bld) [#/Vol] 0.8 10*3/uL 0.1-1.00 [facility] Monocytes/100 WBC Auto (Bld) Ordered By: Art Bianchi on 11-07-2022 Monocytes/100 WBC (Bld) 8.1 % . [facility] Neutrophils Auto (Bld) [#/Vo l]Ordered By: Art Bianchi on 11-07-2022 Neutrophils (Bld) [#/Vol] 7.1 10*3/uL 1.2-7.7 [facility] Neutrophils/100 WBC Auto (Bl d)Ordered By: Art Bianchi on 11-07-2022 Neutrophils/100 WBC (Bld) 68.9 % . [facility] Nitrite Test strip Ql (U)Ord ered By: Art Bianchi on 11-07-2022 Nitrite Ql (U) Negative Negative [facility] No Panel InformationOrdered By: Art Bianchi on 11-07-2022 0-8 [LPF] 0-8 [facility] > 60 mL/Min [facility] 43.0 U/L 22-51 [facility] 104.35 [facility] Nucleated erythrocytes [Pres ence] in Blood by Automated countOrdered By: Art Bianchi on 11-07-2022 Nucleated RBC Auto Ql (Bld) 0.3 /100{WBC} 0-0.5 [facility] Platelet mean volume Auto (B ld) [Entitic vol]Ordered By: Art Bianchi on 11-07-2022 Platelet mean volume (Bld) [Entitic vol] 8.4 fL 6.3-10.7 [facility] Platelets Auto (Bld) [#/Vol] Ordered By: Art Bianchi on 11-07-2022 Platelets (Bld) [#/Vol] 308 10*3/uL 150-450 [facility] Protein Auto test strip (U) [Mass/Vol]Ordered By: Art Bianchi on 11-07-2022 Protein (U) [Mass/Vol] Trace mg/dL Negative [facility] Protein [Mass/volume] in Ser um or PlasmaOrdered By: Art Bianchi on 11-07-2022 Protein [Mass/Vol] 7.3 g/dL 6.1-7.9 [facility] RBC Auto (Bld) [#/Vol]Ordere d By: Art Bianchi on 11-07-2022 RBC (Bld) [#/Vol] 5.14 10*6/uL 4.10-5.10 [facility] Serum or plasma alanine florez otransferase measurement without P-5'-P (enzymatic activiOrdered By: Art Bianchi on 11-07-2022 ALT No additional P-5'-P [Catalytic activity/Vol] 24 U/L 10-60 [facility] Serum or plasma albumin/glob ulin mass ratioOrdered By: Art Bianchi on 11-07-2022 Albumin/Globulin [Mass ratio] 1.7 {ratio} [facility] Serum or plasma alkaline justin sphatase measurement (enzymatic activity/volume)Ordered By: Art Bianchi on 11-07-2022 ALP [Catalytic activity/Vol] 60 U/L 32-92 [facility] Serum or plasma anion gap de terminationOrdered By: rAt Bianchi on 11-07-2022 Anion gap [Moles/Vol] 12.2 mmol/L 6.0-15.0 [facility] Serum or plasma aspartate am inotransferase measurement (enzymatic activity/volume)Ordered By: Art Bianchi on 11-07-2022 AST [Catalytic activity/Vol] 25 U/L 10-42 [facility] Serum or plasma calcium tammy urement (mass/volume)Ordered By: Art Bianchi on 11-07-2022 Calcium [Mass/Vol] 9.6 mg/dL 8.2-10.2 [facility] Serum or plasma chloride judy surement (moles/volume)Ordered By: Art Bianchi on 11-07-2022 Chloride [Moles/Vol] 98 mmol/L 95-114 [facility] Serum or plasma creatinine m easurement with calculation of estimated glomerular filtrOrdered By: Art Bianchi on 11-07-2022 Creatinine and Glomerular filtration rate.predicted panel (S/P/Bld) 0.84 mg/dL 0.44-1.03 [facility] Serum or plasma glucose tammy urement (mass/volume)Ordered By: Art Bianchi on 11-07-2022 Glucose [Mass/Vol] 106 mg/dL 70-100 [facility] Serum or plasma potassium me asurement (moles/volume)Ordered By: Art Bianchi on 11-07-2022 Potassium [Moles/Vol] 3.2 mmol/L 3.5-5.1 [facility] Serum or plasma sodium measu rement (moles/volume)Ordered By: Art Bianchi on 11-07-2022 Sodium [Moles/Vol] 132 mmol/L 136-146 [facility] Serum or plasma total biliru bin measurement (mass/volume)Ordered By: Art Bianchi on 11-07-2022 Bilirubin [Mass/Vol] 0.8 mg/dL 0.3-1.2 [facility] Serum or plasma total carbon dioxide measurement (moles/volume)Ordered By: Art Bianchi on 11-07-2022 CO2 [Moles/Vol] 25.0 mmol/L 22.0-30.0 [facility] Serum or plasma urea nitroge n measurement (mass/volume)Ordered By: Art Bianchi on 11-07-2022 Urea nitrogen [Mass/Vol] 6 mg/dL 9-23 [facility] Specific gravity Auto test s trip (U) [Rel density]Ordered By: Art Bianchi on 11-07-2022 Specific gravity (U) [Rel density] 1.014 1.001-1.03 0 [facility] Squamous epithelial cells de tection in urine sediment by light microscopyOrdered By: Art Bianchi on 11-07-2022 Epithelial cells.squamous LM Ql (Urine sed) 5-9 [HPF] 0-2 [facility] Urine bacteria detection by automated methodOrdered By: Art Bianchi on 11-07-2022 Bacteria Auto Ql (U) None seen None Seen [facility] Urine clarity by refractomet ry automatedOrdered By: Art Bianchi on 11-07-2022 Clarity Refractometry automated (U) Clear Clear [facility] Urine glucose measurement by automated test strip (mass/volume)Ordered By: Art Bianchi on 11-07-2022 Glucose Auto test strip (U) [Mass/Vol] Normal mg/dL Normal [facility] Urine hemoglobin detection b y automated test stripOrdered By: Art Bianchi on 11-07-2022 Hemoglobin Auto test strip Ql (U) Negative Negative [facility] Urine leukocyte esterase det ection by automated test stripOrdered By: Art Bianchi on 11-07-2022 Leukocyte esterase Auto test strip Ql (U) Negative Negative [facility] Urobilinogen Auto test strip (U) [Mass/Vol]Ordered By: Art Bianchi on 11-07-2022 Urobilinogen (U) [Mass/Vol] Normal mg/dL Normal [facility] WBC Auto (Bld) [#/Vol]Ordere d By: Art Bianchi on 11-07-2022 WBC (Bld) [#/Vol] 10.3 10*3/uL 4.5-13.5 [facility] pH Auto test strip (U)Ordere d By: Art Bianchi on 11-07-2022 pH (U) 8.5 [pH] 5.0-9.0 [facility] Urine culture routineOrdered By: Colten Fry on 11-04-2022 Bacteria identified Cx Nom (U) 2 Days [facility] Albumin [Mass/volume] in Ser um or PlasmaOrdered By: Colten Fry on 11-02-2022 Albumin [Mass/Vol] 4.8 g/dL 3.2-5.5 [facility] Amphetamine Screen Ql (U)Ord ered By: Colten Fry on 11-02-2022 Amphetamines Ql (U) Negative Negative [facility] Automated erythrocytes count in urine sediment (number/area)Ordered By: Colten Fry on 11-02-2022 RBC Auto (Urine sed) [#/Area] 20-49 [HPF] 0-4 [facility] Automated leukocytes count i n urine sediment (number/area)Ordered By: Colten Fry on 11-02-2022 WBC Auto (Urine sed) [#/Area] 5-9 [HPF] 0-4 [facility] Barbiturates [Presence] in U rineOrdered By: Colten Fry on 11-02-2022 Barbiturates Ql (U) Negative Negative [facility] Basophils Auto (Bld) [#/Vol] Ordered By: Colten Fry on 11-02-2022 Basophils (Bld) [#/Vol] 0.1 10*3/uL 0.0-0.1 [facility] Basophils/100 WBC Auto (Bld) Ordered By: Colten Fry on 11-02-2022 Basophils/100 WBC (Bld) 0.5 % . [facility] Benzodiazepines [Presence] i n UrineOrdered By: Colten Fry on 11-02-2022 Benzodiazepines Ql (U) Negative Negative [facility] Bilirubin Test strip Ql (U)O rdered By: Colten Fry on 11-02-2022 Bilirubin Ql (U) Negative Negative [facility] Cannabinoids [Presence] in U rine by Screen methodOrdered By: Colten Fry on 11-02-2022 Cannabinoids Screen Ql (U) Positive Negative [facility] Color Auto (U)Ordered By: Vida Fry on 11-02-2022 Color (U) Yellow Yellow [facility] Eosinophils Auto (Bld) [#/Vo l]Ordered By: Colten Fry on 11-02-2022 Eosinophils (Bld) [#/Vol] 0.3 10*3/uL 0.0-0.7 [facility] Eosinophils/100 WBC Auto (Bl d)Ordered By: Colten Fry on 11-02-2022 Eosinophils/100 WBC (Bld) 2.1 % . [facility] Erythrocyte distribution wid th Auto (RBC) [Ratio]Ordered By: Colten Fry on 11-02-2022 Erythrocyte distribution width (RBC) [Ratio] 13.7 % 11.9-15.3 [facility] Estimated glomerular filtrat ion rate (GFR) non- AmericanOrdered By: Colten Fry on 11-02-2022 GFR/1.73 sq M.predicted among non-blacks MDRD (S/P/Bld) [Vol rate/Area] > 60 mL/Min [facility] Globulin Calc (S) [Mass/Vol] Ordered By: Colten Fry on 11-02-2022 Globulin (S) [Mass/Vol] 3.1 g/dL [facility] HCG ( test) IA.rapi d Ql (U)Ordered By: Colten Fry on 11-02-2022 HCG ( test) Ql (U) Negative [facility] Hematocrit Auto (Bld) [Volum e fraction]Ordered By: Colten Fry on 11-02-2022 Hematocrit (Bld) [Volume fraction] 45.3 % 36.0-46.0 [facility] Hemoglobin [Mass/volume] in BloodOrdered By: Colten Fry on 11-02-2022 Hemoglobin (Bld) [Mass/Vol] 15.4 g/dL 12.0-16.0 [facility] Ketones Auto test strip (U) [Mass/Vol]Ordered By: Colten Fry on 11-02-2022 Ketones (U) [Mass/Vol] 3+ Negative [facility] Leukocytes [#/volume] correc venkata for nucleated erythrocytes in Blood by Automated counOrdered By: Colten Fry on 11-02-2022 WBC corrected for nucl RBC Auto (Bld) [#/Vol] 11.7 10*3/uL 4.5-13.5 [facility] Lymphocytes Auto (Bld) [#/Vo l]Ordered By: Colten Fry on 11-02-2022 Lymphocytes (Bld) [#/Vol] 2.3 10*3/uL 1.20-4.8 [facility] Lymphocytes/100 WBC Auto (Bl d)Ordered By: Colten Fry on 11-02-2022 Lymphocytes/100 WBC (Bld) 19.6 % . [facility] MCH Auto (RBC) [Entitic mass ]Ordered By: Colten Fry on 11-02-2022 MCH (RBC) [Entitic mass] 28.4 pg 25.0-35.0 [facility] MCHC Auto (RBC) [Mass/Vol]Or dered By: Colten Fry on 11-02-2022 MCHC (RBC) [Mass/Vol] 34.0 g/dL 31.0-37.0 [facility] MCV Auto (RBC) [Entitic vol] Ordered By: Colten Fry on 11-02-2022 MCV (RBC) [Entitic vol] 83.3 fL 78-102 [facility] Monocytes Auto (Bld) [#/Vol] Ordered By: Colten Fry on 11-02-2022 Monocytes (Bld) [#/Vol] 1.0 10*3/uL 0.1-1.00 [facility] Monocytes/100 WBC Auto (Bld) Ordered By: Colten Fry on 11-02-2022 Monocytes/100 WBC (Bld) 8.5 % . [facility] Neutrophils Auto (Bld) [#/Vo l]Ordered By: Colten Fry on 11-02-2022 Neutrophils (Bld) [#/Vol] 8.1 10*3/uL 1.2-7.7 [facility] Neutrophils/100 WBC Auto (Bl d)Ordered By: Colten Fry on 11-02-2022 Neutrophils/100 WBC (Bld) 69.3 % . [facility] Nitrite Test strip Ql (U)Ord ered By: Colten Fry on 11-02-2022 Nitrite Ql (U) Negative Negative [facility] No Panel InformationOrdered By: Colten Fry on 11-02-2022 9-19 [LPF] 0-8 [facility] Negative Negative [facility] > 60 mL/Min [facility] 100.26 [facility] No Panel InformationOrdered By: Robert Bolanos on 11-02-2022 2.6 mg/dL 1.6-2.6 [facility] Nucleated erythrocytes [Pres ence] in Blood by Automated countOrdered By: Colten Fry on 11-02-2022 Nucleated RBC Auto Ql (Bld) 0.1 /100{WBC} 0-0.5 [facility] Phencyclidine Screen Ql (U)O rdered By: Colten Fry on 11-02-2022 Phencyclidine Ql (U) Negative Negative [facility] Platelet mean volume Auto (B ld) [Entitic vol]Ordered By: Colten Fry on 11-02-2022 Platelet mean volume (Bld) [Entitic vol] 7.9 fL 6.3-10.7 [facility] Platelets Auto (Bld) [#/Vol] Ordered By: Colten rFy on 11-02-2022 Platelets (Bld) [#/Vol] 292 10*3/uL 150-450 [facility] Protein Auto test strip (U) [Mass/Vol]Ordered By: Colten Fry on 11-02-2022 Protein (U) [Mass/Vol] 30 mg/dL Negative [facility] Protein [Mass/volume] in Ser um or PlasmaOrdered By: Colten Fry on 11-02-2022 Protein [Mass/Vol] 7.9 g/dL 6.1-7.9 [facility] RBC Auto (Bld) [#/Vol]Ordere d By: Colten Fry on 11-02-2022 RBC (Bld) [#/Vol] 5.43 10*6/uL 4.10-5.10 [facility] Serum or plasma alanine florez otransferase measurement without P-5'-P (enzymatic activiOrdered By: Colten Fry on 11-02-2022 ALT No additional P-5'-P [Catalytic activity/Vol] 20 U/L 10-60 [facility] Serum or plasma albumin/glob ulin mass ratioOrdered By: Colten Fry on 11-02-2022 Albumin/Globulin [Mass ratio] 1.5 {ratio} [facility] Serum or plasma alkaline justin sphatase measurement (enzymatic activity/volume)Ordered By: Colten Fry on 11-02-2022 ALP [Catalytic activity/Vol] 65 U/L 32-92 [facility] Serum or plasma anion gap de terminationOrdered By: Colten Fry on 11-02-2022 Anion gap [Moles/Vol] 14.6 mmol/L 6.0-15.0 [facility] Serum or plasma aspartate am inotransferase measurement (enzymatic activity/volume)Ordered By: Colten Fry on 11-02-2022 AST [Catalytic activity/Vol] 19 U/L 10-42 [facility] Serum or plasma calcium tammy urement (mass/volume)Ordered By: Colten Fry on 11-02-2022 Calcium [Mass/Vol] 9.6 mg/dL 8.2-10.2 [facility] Serum or plasma chloride judy surement (moles/volume)Ordered By: Colten Fry on 11-02-2022 Chloride [Moles/Vol] 95 mmol/L 95-114 [facility] Serum or plasma creatinine m easurement with calculation of estimated glomerular filtrOrdered By: Colten Fry on 11-02-2022 Creatinine and Glomerular filtration rate.predicted panel (S/P/Bld) 0.88 mg/dL 0.44-1.03 [facility] Serum or plasma glucose tammy urement (mass/volume)Ordered By: Colten Fry on 11-02-2022 Glucose [Mass/Vol] 95 mg/dL 70-100 [facility] Serum or plasma potassium me asurement (moles/volume)Ordered By: Colten Fry on 11-02-2022 Potassium [Moles/Vol] 2.9 mmol/L 3.5-5.1 [facility] Serum or plasma sodium measu rement (moles/volume)Ordered By: Colten Fry on 11-02-2022 Sodium [Moles/Vol] 134 mmol/L 136-146 [facility] Serum or plasma total biliru bin measurement (mass/volume)Ordered By: Colten Fry on 11-02-2022 Bilirubin [Mass/Vol] 1.8 mg/dL 0.3-1.2 [facility] Serum or plasma total carbon dioxide measurement (moles/volume)Ordered By: Colten Fry on 11-02-2022 CO2 [Moles/Vol] 27.3 mmol/L 22.0-30.0 [facility] Serum or plasma urea nitroge n measurement (mass/volume)Ordered By: Colten Fry on 11-02-2022 Urea nitrogen [Mass/Vol] 24 mg/dL 9-23 [facility] Specific gravity Auto test s trip (U) [Rel density]Ordered By: Colten Fry on 11-02-2022 Specific gravity (U) [Rel density] 1.025 1.001-1.03 0 [facility] Squamous epithelial cells de tection in urine sediment by light microscopyOrdered By: Colten Fry on 11-02-2022 Epithelial cells.squamous LM Ql (Urine sed) 10-19 [HPF] 0-2 [facility] Urine bacteria detection by automated methodOrdered By: Colten Fry on 11-02-2022 Bacteria Auto Ql (U) None seen None Seen [facility] Urine clarity by refractomet ry automatedOrdered By: Colten Fry on 11-02-2022 Clarity Refractometry automated (U) Cloudy Clear [facility] Urine cocaine detectionOrder ed By: Colten Fry on 11-02-2022 Cocaine Ql (U) Negative Negative [facility] Urine culture routineOrdered By: Colten Fry on 11-02-2022 Bacteria identified Cx Nom (U) 2 Days [facility] Urine culture routineOrdered By: Art Bianchi on 11-02-2022 Bacteria identified Cx Nom (U) 2 Days [facility] Urine glucose measurement by automated test strip (mass/volume)Ordered By: Colten Fry on 11-02-2022 Glucose Auto test strip (U) [Mass/Vol] Normal mg/dL Normal [facility] Urine hemoglobin detection b y automated test stripOrdered By: Colten Fry on 11-02-2022 Hemoglobin Auto test strip Ql (U) 3+ Negative [facility] Urine leukocyte esterase det ection by automated test stripOrdered By: Colten Fry on 11-02-2022 Leukocyte esterase Auto test strip Ql (U) 2+ Negative [facility] Urobilinogen Auto test strip (U) [Mass/Vol]Ordered By: Colten Fry on 11-02-2022 Urobilinogen (U) [Mass/Vol] Normal mg/dL Normal [facility] WBC Auto (Bld) [#/Vol]Ordere d By: Colten Fry on 11-02-2022 WBC (Bld) [#/Vol] 11.7 10*3/uL 4.5-13.5 [facility] [facility] pH Auto test strip (U)Ordere d By: Colten Fry on 11-02-2022 pH (U) 7.0 [pH] 5.0-9.0 [facility] Albumin [Mass/volume] in Ser um or PlasmaOrdered By: Art Bianchi on 10-31-2022 Albumin [Mass/Vol] 5.1 g/dL 3.2-5.5 [facility] Automated erythrocytes count in urine sediment (number/area)Ordered By: Art Bianchi on 10-31-2022 RBC Auto (Urine sed) [#/Area] Innumerable [HPF] 0-4 [facility] Automated leukocytes count i n urine sediment (number/area)Ordered By: Art Bianchi on 10-31-2022 WBC Auto (Urine sed) [#/Area] 10-19 [HPF] 0-4 [facility] Basophils Auto (Bld) [#/Vol] Ordered By: Art Bianchi on 10-31-2022 Basophils (Bld) [#/Vol] 0.0 10*3/uL 0.0-0.1 [facility] Basophils/100 WBC Auto (Bld) Ordered By: Art Bianchi on 10-31-2022 Basophils/100 WBC (Bld) 0.3 % . [facility] Bilirubin Test strip Ql (U)O rdered By: Art Bianchi on 10-31-2022 Bilirubin Ql (U) Negative Negative [facility] Color Auto (U)Ordered By: Adrian red Tash on 10-31-2022 Color (U) Red Yellow [facility] Eosinophils Auto (Bld) [#/Vo l]Ordered By: Art Bianchi on 10-31-2022 Eosinophils (Bld) [#/Vol] 0.1 10*3/uL 0.0-0.7 [facility] Eosinophils/100 WBC Auto (Bl d)Ordered By: Art Bianchi on 10-31-2022 Eosinophils/100 WBC (Bld) 1.0 % . [facility] Erythrocyte distribution wid th Auto (RBC) [Ratio]Ordered By: Art Bianchi on 10-31-2022 Erythrocyte distribution width (RBC) [Ratio] 14.0 % 11.9-15.3 [facility] Estimated glomerular filtrat ion rate (GFR) non- AmericanOrdered By: Art Bianchi on 10-31-2022 GFR/1.73 sq M.predicted among non-blacks MDRD (S/P/Bld) [Vol rate/Area] > 60 mL/Min [facility] Globulin Calc (S) [Mass/Vol] Ordered By: Art Bianchi on 10-31-2022 Globulin (S) [Mass/Vol] 3.1 g/dL [facility] HCG ( test) IA.rapi d Ql (U)Ordered By: Art Bianchi on 10-31-2022 HCG ( test) Ql (U) Negative [facility] Hematocrit Auto (Bld) [Volum e fraction]Ordered By: Art Bianchi on 10-31-2022 Hematocrit (Bld) [Volume fraction] 45.0 % 36.0-46.0 [facility] Hemoglobin [Mass/volume] in BloodOrdered By: Art Bianchi on 10-31-2022 Hemoglobin (Bld) [Mass/Vol] 15.2 g/dL 12.0-16.0 [facility] Ketones Auto test strip (U) [Mass/Vol]Ordered By: Art Bianchi on 10-31-2022 Ketones (U) [Mass/Vol] 3+ Negative [facility] Leukocytes [#/volume] correc venkata for nucleated erythrocytes in Blood by Automated counOrdered By: Art Bianchi on 10-31-2022 WBC corrected for nucl RBC Auto (Bld) [#/Vol] 14.0 10*3/uL 4.5-13.5 [facility] Lymphocytes Auto (Bld) [#/Vo l]Ordered By: Art Bianchi on 10-31-2022 Lymphocytes (Bld) [#/Vol] 2.2 10*3/uL 1.20-4.8 [facility] Lymphocytes/100 WBC Auto (Bl d)Ordered By: Art Bianchi on 10-31-2022 Lymphocytes/100 WBC (Bld) 15.5 % . [facility] MCH Auto (RBC) [Entitic mass ]Ordered By: Art Bianchi on 10-31-2022 MCH (RBC) [Entitic mass] 28.6 pg 25.0-35.0 [facility] MCHC Auto (RBC) [Mass/Vol]Or dered By: Art Bianchi on 10-31-2022 MCHC (RBC) [Mass/Vol] 33.7 g/dL 31.0-37.0 [facility] MCV Auto (RBC) [Entitic vol] Ordered By: Art Bianchi on 10-31-2022 MCV (RBC) [Entitic vol] 85.0 fL 78-102 [facility] Monocyte distribution width [Entitic volume] in Blood by AutomatedOrdered By: Art Bianchi on 10-31-2022 Monocyte distribution width Auto (Bld) [Entitic vol] 14.69 % 0.00-20.00 [facility] Monocytes Auto (Bld) [#/Vol] Ordered By: Art Bianchi on 10-31-2022 Monocytes (Bld) [#/Vol] 1.3 10*3/uL 0.1-1.00 [facility] Monocytes/100 WBC Auto (Bld) Ordered By: Art Bianchi on 10-31-2022 Monocytes/100 WBC (Bld) 9.1 % . [facility] Neutrophils Auto (Bld) [#/Vo l]Ordered By: Art Bianchi on 10-31-2022 Neutrophils (Bld) [#/Vol] 10.4 10*3/uL 1.2-7.7 [facility] Neutrophils/100 WBC Auto (Bl d)Ordered By: Art Bianchi on 10-31-2022 Neutrophils/100 WBC (Bld) 74.1 % . [facility] Nitrite Test strip Ql (U)Ord ered By: Art Bianchi on 10-31-2022 Nitrite Ql (U) Negative Negative [facility] No Panel InformationOrdered By: Art Bianchi on 10-31-2022 0-8 [LPF] 0-8 [facility] > 60 mL/Min [facility] 29.0 U/L 22-51 [facility] 102.97 [facility] Nucleated erythrocytes [Pres ence] in Blood by Automated countOrdered By: Art Bianchi on 10-31-2022 Nucleated RBC Auto Ql (Bld) 0.1 /100{WBC} 0-0.5 [facility] Platelet mean volume Auto (B ld) [Entitic vol]Ordered By: Art Bianchi on 10-31-2022 Platelet mean volume (Bld) [Entitic vol] 8.3 fL 6.3-10.7 [facility] Platelets Auto (Bld) [#/Vol] Ordered By: Art Bianchi on 10-31-2022 Platelets (Bld) [#/Vol] 337 10*3/uL 150-450 [facility] Protein Auto test strip (U) [Mass/Vol]Ordered By: Art Bianchi on 10-31-2022 Protein (U) [Mass/Vol] 100 mg/dL Negative [facility] Protein [Mass/volume] in Ser um or PlasmaOrdered By: Art Bianchi on 10-31-2022 Protein [Mass/Vol] 8.2 g/dL 6.1-7.9 [facility] RBC Auto (Bld) [#/Vol]Ordere d By: Art Bianchi on 10-31-2022 RBC (Bld) [#/Vol] 5.29 10*6/uL 4.10-5.10 [facility] Serum or plasma alanine florez otransferase measurement without P-5'-P (enzymatic activiOrdered By: Art Bianchi on 10-31-2022 ALT No additional P-5'-P [Catalytic activity/Vol] 25 U/L 10-60 [facility] Serum or plasma albumin/glob ulin mass ratioOrdered By: Art Bianchi on 10-31-2022 Albumin/Globulin [Mass ratio] 1.6 {ratio} [facility] Serum or plasma alkaline justin sphatase measurement (enzymatic activity/volume)Ordered By: Art Bianchi on 10-31-2022 ALP [Catalytic activity/Vol] 62 U/L 32-92 [facility] Serum or plasma anion gap de terminationOrdered By: Art Bianchi on 10-31-2022 Anion gap [Moles/Vol] 16.8 mmol/L 6.0-15.0 [facility] Serum or plasma aspartate am inotransferase measurement (enzymatic activity/volume)Ordered By: Art Bianchi on 10-31-2022 AST [Catalytic activity/Vol] 25 U/L 10-42 [facility] Serum or plasma calcium tammy urement (mass/volume)Ordered By: Art Bianchi on 10-31-2022 Calcium [Mass/Vol] 9.9 mg/dL 8.2-10.2 [facility] Serum or plasma chloride judy surement (moles/volume)Ordered By: Art Bianchi on 10-31-2022 Chloride [Moles/Vol] 96 mmol/L 95-114 [facility] Serum or plasma creatinine m easurement with calculation of estimated glomerular filtrOrdered By: Art Bianchi on 10-31-2022 Creatinine and Glomerular filtration rate.predicted panel (S/P/Bld) 0.89 mg/dL 0.44-1.03 [facility] Serum or plasma glucose tammy urement (mass/volume)Ordered By: Art Bianchi on 10-31-2022 Glucose [Mass/Vol] 120 mg/dL 70-100 [facility] Serum or plasma potassium me asurement (moles/volume)Ordered By: Art Bianchi on 10-31-2022 Potassium [Moles/Vol] 3.2 mmol/L 3.5-5.1 [facility] Serum or plasma sodium measu rement (moles/volume)Ordered By: Art Bianchi on 10-31-2022 Sodium [Moles/Vol] 132 mmol/L 136-146 [facility] Serum or plasma total biliru bin measurement (mass/volume)Ordered By: Art Bianchi on 10-31-2022 Bilirubin [Mass/Vol] 1.7 mg/dL 0.3-1.2 [facility] Serum or plasma total carbon dioxide measurement (moles/volume)Ordered By: Art Bianchi on 10-31-2022 CO2 [Moles/Vol] 22.4 mmol/L 22.0-30.0 [facility] Serum or plasma urea nitroge n measurement (mass/volume)Ordered By: Art Bianchi on 10-31-2022 Urea nitrogen [Mass/Vol] 28 mg/dL 9-23 [facility] Specific gravity Auto test s trip (U) [Rel density]Ordered By: Art Bianchi on 10-31-2022 Specific gravity (U) [Rel density] 1.030 1.001-1.03 0 [facility] Squamous epithelial cells de tection in urine sediment by light microscopyOrdered By: Art Bianchi on 10-31-2022 Epithelial cells.squamous LM Ql (Urine sed) 10-19 [HPF] 0-2 [facility] Urine bacteria detection by automated methodOrdered By: Art Bianchi on 10-31-2022 Bacteria Auto Ql (U) None seen None Seen [facility] Urine clarity by refractomet ry automatedOrdered By: Art Bianchi on 10-31-2022 Clarity Refractometry automated (U) Cloudy Clear [facility] Urine culture routineOrdered By: Art Bianchi on 10-31-2022 Bacteria identified Cx Nom (U) 2 Days [facility] Urine glucose measurement by automated test strip (mass/volume)Ordered By: Art Bianchi on 10-31-2022 Glucose Auto test strip (U) [Mass/Vol] Normal mg/dL Normal [facility] Urine hemoglobin detection b y automated test stripOrdered By: Art Bianchi on 10-31-2022 Hemoglobin Auto test strip Ql (U) 3+ Negative [facility] Urine leukocyte esterase det ection by automated test stripOrdered By: Art Bianchi on 10-31-2022 Leukocyte esterase Auto test strip Ql (U) 2+ Negative [facility] Urobilinogen Auto test strip (U) [Mass/Vol]Ordered By: Art Bianchi on 10-31-2022 Urobilinogen (U) [Mass/Vol] Normal mg/dL Normal [facility] WBC Auto (Bld) [#/Vol]Ordere d By: Art Bianchi on 10-31-2022 WBC (Bld) [#/Vol] 14.0 10*3/uL 4.5-13.5 [facility] pH Auto test strip (U)Ordere d By: Art Bianchi on 10-31-2022 pH (U) 6.5 [pH] 5.0-9.0 [facility] Basophils Auto (Bld) [#/Vol] Ordered By: Ravi Arguello on 10-29-2022 Basophils (Bld) [#/Vol] 0.0 10*3/uL 0.0-0.1 [facility] Basophils/100 WBC Auto (Bld) Ordered By: Ravi Arguello on 10-29-2022 Basophils/100 WBC (Bld) 0.3 % . [facility] Body fluid albumin measureme nt (mass/volume)Ordered By: Ravi Arguello on 10-29-2022 Albumin (Body fld) [Mass/Vol] 5.2 g/dL 3.2-5.5 [facility] Creatinine and Glomerular fi ltration rate.predicted panel (S/P/Bld)Ordered By: Ravi Arguello on 10-29-2022 Creatinine [Mass/Vol] 0.85 mg/dL 0.44-1.03 [facility] Direct bilirubin measurement Ordered By: Ravi Arguello on 10-29-2022 Bilirubin.direct [Mass/Vol] 0.1 mg/dL 0.0-0.4 [facility] Eosinophils Auto (Bld) [#/Vo l]Ordered By: Ravi Arguello on 10-29-2022 Eosinophils (Bld) [#/Vol] 0.0 10*3/uL 0.0-0.7 [facility] Eosinophils/100 WBC Auto (Bl d)Ordered By: Ravi Arguello on 10-29-2022 Eosinophils/100 WBC (Bld) 0.1 % . [facility] Erythrocyte distribution wid th Auto (RBC) [Ratio]Ordered By: Ravi Arguello on 10-29-2022 Erythrocyte distribution width (RBC) [Ratio] 14.4 % 11.9-15.3 [facility] Estimated glomerular filtrat ion rate (GFR) non- AmericanOrdered By: Ravi Arguello on 10-29-2022 GFR/1.73 sq M.predicted among non-blacks MDRD (S/P/Bld) [Vol rate/Area] > 60 mL/Min [facility] Globulin Calc (S) [Mass/Vol] Ordered By: Ravi Arguello on 10-29-2022 Globulin (S) [Mass/Vol] 3.7 g/dL [facility] Hematocrit Auto (Bld) [Volum e fraction]Ordered By: Ravi Arguello on 10-29-2022 Hematocrit (Bld) [Volume fraction] 42.9 % 36.0-46.0 [facility] Hemoglobin [Mass/volume] in BloodOrdered By: Ravi Arguello on 10-29-2022 Hemoglobin (Bld) [Mass/Vol] 14.3 g/dL 12.0-16.0 [facility] Laboratory - Chemistry and C hemistry - challengeOrdered By: Ravi Arguello on 10-29-2022 Lipase [Catalytic activity/Vol] 25.0 U/L 22-51 [facility] Leukocytes [#/volume] correc venkata for nucleated erythrocytes in Blood by Automated counOrdered By: Ravi Arguello on 10-29-2022 WBC corrected for nucl RBC Auto (Bld) [#/Vol] 13.7 10*3/uL 4.5-13.5 [facility] Lymphocytes Auto (Bld) [#/Vo l]Ordered By: Ravi Arguello on 10-29-2022 Lymphocytes (Bld) [#/Vol] 1.7 10*3/uL 1.20-4.8 [facility] Lymphocytes/100 WBC Auto (Bl d)Ordered By: Ravi Arguello on 10-29-2022 Lymphocytes/100 WBC (Bld) 12.4 % . [facility] MCH Auto (RBC) [Entitic mass ]Ordered By: Ravi Arguello on 10-29-2022 MCH (RBC) [Entitic mass] 28.4 pg 25.0-35.0 [facility] MCHC Auto (RBC) [Mass/Vol]Or dered By: Ravi Arguello on 10-29-2022 MCHC (RBC) [Mass/Vol] 33.3 g/dL 31.0-37.0 [facility] MCV Auto (RBC) [Entitic vol] Ordered By: Ravi Arguello on 10-29-2022 MCV (RBC) [Entitic vol] 85.1 fL 78-102 [facility] Monocyte distribution width [Entitic volume] in Blood by AutomatedOrdered By: Ravi Arguello on 10-29-2022 Monocyte distribution width Auto (Bld) [Entitic vol] 16.57 % 0.00-20.00 [facility] Monocytes Auto (Bld) [#/Vol] Ordered By: Ravi Arguello on 10-29-2022 Monocytes (Bld) [#/Vol] 0.9 10*3/uL 0.1-1.00 [facility] Monocytes/100 WBC Auto (Bld) Ordered By: Ravi Arguello on 10-29-2022 Monocytes/100 WBC (Bld) 6.8 % . [facility] Neutrophils Auto (Bld) [#/Vo l]Ordered By: Ravi Arguello on 10-29-2022 Neutrophils (Bld) [#/Vol] 11.0 10*3/uL 1.2-7.7 [facility] Neutrophils/100 WBC Auto (Bl d)Ordered By: Ravi Arguello on 10-29-2022 Neutrophils/100 WBC (Bld) 80.4 % . [facility] No Panel InformationOrdered By: Ravi Arguello on 10-29-2022 Estimated GFR () > 60 mL/Min [facility] Comment on above: GFR estimated refere nce range: According to KDOQI guidelines, <60 ml/min/1.73m2 is sufficient to diagnose a patient with chronic kidney disease. Pharmacy Creatinine Clearance (Chem 105.83 [facility] > 60 mL/Min [facility] 25.0 U/L 22-51 [facility] 105.83 [facility] Nucleated erythrocytes [Pres ence] in Blood by Automated countOrdered By: Ravi Arguello on 10-29-2022 Nucleated RBC Auto Ql (Bld) 0.0 /100{WBC} 0-0.5 [facility] Platelet mean volume Auto (B ld) [Entitic vol]Ordered By: Ravi Arguello on 10-29-2022 Platelet mean volume (Bld) [Entitic vol] 8.4 fL 6.3-10.7 [facility] Platelets Auto (Bld) [#/Vol] Ordered By: Ravi Arguello on 10-29-2022 Platelets (Bld) [#/Vol] 355 10*3/uL 150-450 [facility] Protein [Mass/volume] in Ser um or PlasmaOrdered By: Ravi Arguello on 10-29-2022 Protein [Mass/Vol] 8.9 g/dL 6.1-7.9 [facility] RBC Auto (Bld) [#/Vol]Ordere d By: Ravi Arguello on 10-29-2022 RBC (Bld) [#/Vol] 5.04 10*6/uL 4.10-5.10 [facility] Serum or plasma alanine florez otransferase measurement without P-5'-P (enzymatic activiOrdered By: Ravi Arguello on 10-29-2022 ALT No additional P-5'-P [Catalytic activity/Vol] 24 U/L 10-60 [facility] Serum or plasma albumin/glob ulin mass ratioOrdered By: Ravi Arguello on 10-29-2022 Albumin/Globulin [Mass ratio] 1.4 {ratio} [facility] Serum or plasma alkaline justin sphatase measurement (enzymatic activity/volume)Ordered By: Ravi Arguello on 10-29-2022 ALP [Catalytic activity/Vol] 68 U/L 32-92 [facility] Serum or plasma anion gap de terminationOrdered By: Ravi Arguello on 10-29-2022 Anion gap [Moles/Vol] 19.9 mmol/L 6.0-15.0 [facility] Serum or plasma aspartate am inotransferase measurement (enzymatic activity/volume)Ordered By: Ravi Arguello on 10-29-2022 AST [Catalytic activity/Vol] 20 U/L 10-42 [facility] Serum or plasma calcium tammy urement (mass/volume)Ordered By: Ravi Arguello on 10-29-2022 Calcium [Mass/Vol] 10.4 mg/dL 8.2-10.2 [facility] Serum or plasma chloride judy surement (moles/volume)Ordered By: Ravi Arguello on 10-29-2022 Chloride [Moles/Vol] 100 mmol/L 95-114 [facility] Serum or plasma creatinine m easurement with calculation of estimated glomerular filtrOrdered By: Ravi Arguello on 10-29-2022 Creatinine and Glomerular filtration rate.predicted panel (S/P/Bld) 0.85 mg/dL 0.44-1.03 [facility] Serum or plasma glucose tammy urement (mass/volume)Ordered By: Ravi Arguello on 10-29-2022 Glucose [Mass/Vol] 114 mg/dL 70-100 [facility] Comment on above: ADA recommended refe rence rangeRandom Glucose Reference Range is dependent on time and content of last meal. Glucose of more than 200 mg/dL in a nonstressed, ambulatory subject supports the diagnosis of Diabetes Mellitus. Serum or plasma non-glucuron idated bilirubin measurement (mass/volume)Ordered By: Ravi Arguello on 10-29-2022 Bilirubin.indirect [Mass/Vol] 1.1 mg/dL [facility] Serum or plasma potassium me asurement (moles/volume)Ordered By: Ravi Arguello on 10-29-2022 Potassium [Moles/Vol] 3.3 mmol/L 3.5-5.1 [facility] Serum or plasma sodium measu rement (moles/volume)Ordered By: Ravi Arguello on 10-29-2022 Sodium [Moles/Vol] 137 mmol/L 136-146 [facility] Serum or plasma total biliru bin measurement (mass/volume)Ordered By: Ravi Arguello on 10-29-2022 Bilirubin [Mass/Vol] 1.2 mg/dL 0.3-1.2 [facility] Serum or plasma total carbon dioxide measurement (moles/volume)Ordered By: Ravi Arguello on 10-29-2022 CO2 [Moles/Vol] 20.4 mmol/L 22.0-30.0 [facility] Serum or plasma urea nitroge n measurement (mass/volume)Ordered By: Ravi rAguello on 10-29-2022 Urea nitrogen [Mass/Vol] 21 mg/dL 9 [facility] WBC Auto (Bld) [#/Vol]Ordere d By: Ravi Arguello on 10-29-2022 WBC (Bld) [#/Vol] 13.7 10*3/uL 4.5-13.5 [facility] Basophils Auto (Bld) [#/Vol] Ordered By: Modesta Chand on 08-27-2022 Basophils (Bld) [#/Vol] 0.0 10*3/uL 0.0-0.1 [facility] Basophils/100 WBC Auto (Bld) Ordered By: Modesta Chand on 08-27-2022 Basophils/100 WBC (Bld) 0.3 % . [facility] Body fluid albumin measureme nt (mass/volume)Ordered By: Modesta Chand on 08-27-2022 Albumin (Body fld) [Mass/Vol] 4.7 g/dL 3.2-5.5 [facility] Creatinine and Glomerular fi ltration rate.predicted panel (S/P/Bld)Ordered By: Modesta Chand on 08-27-2022 Creatinine [Mass/Vol] 0.90 mg/dL 0.44-1.03 [facility] Eosinophils Auto (Bld) [#/Vo l]Ordered By: Modesta Chand on 08-27-2022 Eosinophils (Bld) [#/Vol] 0.3 10*3/uL 0.0-0.7 [facility] Eosinophils/100 WBC Auto (Bl d)Ordered By: Modesta Chand on 08-27-2022 Eosinophils/100 WBC (Bld) 2.2 % . [facility] Erythrocyte distribution wid th Auto (RBC) [Ratio]Ordered By: Modesta Chand on 08-27-2022 Erythrocyte distribution width (RBC) [Ratio] 14.0 % 11.9-15.3 [facility] Estimated glomerular filtrat ion rate (GFR) non- AmericanOrdered By: Modesta Chand on 08-27-2022 GFR/1.73 sq M.predicted among non-blacks MDRD (S/P/Bld) [Vol rate/Area] > 60 mL/Min [facility] Globulin Calc (S) [Mass/Vol] Ordered By: Modesta Chand on 08-27-2022 Globulin (S) [Mass/Vol] 2.5 g/dL [facility] Hematocrit Auto (Bld) [Volum e fraction]Ordered By: Modesta Chand on 08-27-2022 Hematocrit (Bld) [Volume fraction] 46.5 % 36.0-46.0 [facility] Hemoglobin [Mass/volume] in BloodOrdered By: Modesta Chand on 08-27-2022 Hemoglobin (Bld) [Mass/Vol] 15.6 g/dL 12.0-16.0 [facility] Laboratory - Chemistry and C hemistry - challengeOrdered By: Modesta Chand on 08-27-2022 Lipase [Catalytic activity/Vol] 27.0 U/L 22-51 [facility] Laboratory - Hematology and Cell countsOrdered By: Modesta Chand on 08-27-2022 Nucleated RBC/100 WBC (Bld) [Ratio] 0.1 % 0-0.5 [facility] Leukocytes [#/volume] in Blo od by Automated countOrdered By: Modesta Chand on 08-27-2022 WBC (Bld) [#/Vol] 13.4 10*3/uL 4.5-13.5 [facility] Lymphocytes Auto (Bld) [#/Vo l]Ordered By: Modesta Chand on 08-27-2022 Lymphocytes (Bld) [#/Vol] 3.1 10*3/uL 1.20-4.8 [facility] Lymphocytes/100 WBC Auto (Bl d)Ordered By: Modesta Chand on 08-27-2022 Lymphocytes/100 WBC (Bld) 22.9 % . [facility] MCH Auto (RBC) [Entitic mass ]Ordered By: Modesta Chand on 08-27-2022 MCH (RBC) [Entitic mass] 28.4 pg 25.0-35.0 [facility] MCHC Auto (RBC) [Mass/Vol]Or dered By: Modesta Chand on 08-27-2022 MCHC (RBC) [Mass/Vol] 33.5 g/dL 31.0-37.0 [facility] MCV Auto (RBC) [Entitic vol] Ordered By: Modesta Chand on 08-27-2022 MCV (RBC) [Entitic vol] 84.8 fL 78-102 [facility] Monocytes Auto (Bld) [#/Vol] Ordered By: Modesta Chand on 08-27-2022 Monocytes (Bld) [#/Vol] 1.2 10*3/uL 0.1-1.00 [facility] Monocytes/100 WBC Auto (Bld) Ordered By: Modesta Chand on 08-27-2022 Monocytes/100 WBC (Bld) 9.1 % . [facility] Neutrophils Auto (Bld) [#/Vo l]Ordered By: Modesta Chand on 08-27-2022 Neutrophils (Bld) [#/Vol] 8.8 10*3/uL 1.2-7.7 [facility] Neutrophils/100 WBC Auto (Bl d)Ordered By: Modesta Chand on 08-27-2022 Neutrophils/100 WBC (Bld) 65.5 % . [facility] No Panel InformationOrdered By: Modesta Chand on 08-27-2022 Estimated GFR () > 60 mL/Min [facility] Comment on above: GFR estimated refere nce range: According to KDOQI guidelines, <60 ml/min/1.73m2 is sufficient to diagnose a patient with chronic kidney disease. Pharmacy Creatinine Clearance (Chem N/A [facility] 13.4 10*3/uL 4.5-13.5 [facility] 0.1 % 0-0.5 [facility] > 60 mL/Min [facility] 27.0 U/L 22-51 [facility] N/A [facility] Platelet mean volume Auto (B ld) [Entitic vol]Ordered By: Modesta Chand on 08-27-2022 Platelet mean volume (Bld) [Entitic vol] 8.9 fL 6.3-10.7 [facility] Platelets Auto (Bld) [#/Vol] Ordered By: Modesta Chand on 08-27-2022 Platelets (Bld) [#/Vol] 373 10*3/uL 150-450 [facility] Protein [Mass/volume] in Ser um or PlasmaOrdered By: Modesta Chand on 08-27-2022 Protein [Mass/Vol] 7.2 g/dL 6.1-7.9 [facility] RBC Auto (Bld) [#/Vol]Ordere d By: Modesta Chand on 08-27-2022 RBC (Bld) [#/Vol] 5.49 10*6/uL 4.10-5.10 [facility] Serum or plasma alanine florez otransferase measurement without P-5'-P (enzymatic activiOrdered By: Modesta Chand on 08-27-2022 ALT No additional P-5'-P [Catalytic activity/Vol] 20 U/L 10-60 [facility] Serum or plasma albumin/glob ulin mass ratioOrdered By: Modesta Chand on 08-27-2022 Albumin/Globulin [Mass ratio] 1.9 {ratio} [facility] Serum or plasma alkaline justin sphatase measurement (enzymatic activity/volume)Ordered By: Modesta Chand on 08-27-2022 ALP [Catalytic activity/Vol] 63 U/L 32-92 [facility] Serum or plasma amylase tammy urement (enzymatic activity/volume)Ordered By: Modesta Chand on 08-27-2022 Amylase [Catalytic activity/Vol] 25 U/L 28-100 [facility] Serum or plasma anion gap de terminationOrdered By: Modesta Chand on 08-27-2022 Anion gap [Moles/Vol] 22.5 mmol/L 6.0-15.0 [facility] Serum or plasma aspartate am inotransferase measurement (enzymatic activity/volume)Ordered By: Modesta Chand on 08-27-2022 AST [Catalytic activity/Vol] 18 U/L 10-42 [facility] Serum or plasma calcium tammy urement (mass/volume)Ordered By: Modesta Chand on 08-27-2022 Calcium [Mass/Vol] 10.1 mg/dL 8.2-10.2 [facility] Serum or plasma chloride judy surement (moles/volume)Ordered By: Modesta Chand on 08-27-2022 Chloride [Moles/Vol] 89 mmol/L 95-114 [facility] Serum or plasma creatinine m easurement with calculation of estimated glomerular filtrOrdered By: Modesta Chand on 08-27-2022 Creatinine and Glomerular filtration rate.predicted panel (S/P/Bld) 0.90 mg/dL 0.44-1.03 [facility] Serum or plasma glucose tammy urement (mass/volume)Ordered By: Modesta Chand on 08-27-2022 Glucose [Mass/Vol] 76 mg/dL 70-100 [facility] Comment on above: ADA recommended refe rence rangeRandom Glucose Reference Range is dependent on time and content of last meal. Glucose of more than 200 mg/dL in a nonstressed, ambulatory subject supports the diagnosis of Diabetes Mellitus. Serum or plasma potassium me asurement (moles/volume)Ordered By: Modesta Chand on 08-27-2022 Potassium [Moles/Vol] 3.7 mmol/L 3.5-5.1 [facility] Serum or plasma sodium measu rement (moles/volume)Ordered By: Modesta Chand on 08-27-2022 Sodium [Moles/Vol] 131 mmol/L 136-146 [facility] Serum or plasma total biliru bin measurement (mass/volume)Ordered By: Modesta Chand on 08-27-2022 Bilirubin [Mass/Vol] 1.6 mg/dL 0.3-1.2 [facility] Comment on above: Samples from patient s who have taken Naproxen have shown spurious elevation in Total Bilirubin levels. A metabolite of Naproxen, O-desmethylnaproxen, has been shown to interfere with the Nava-Carolynn method for measuring Total Bilirubin. Serum or plasma total carbon dioxide measurement (moles/volume)Ordered By: Modesta Chand on 08-27-2022 CO2 [Moles/Vol] 23.2 mmol/L 22.0-30.0 [facility] Serum or plasma urea nitroge n measurement (mass/volume)Ordered By: Modesta Chand on 08-27-2022 Urea nitrogen [Mass/Vol] 15 mg/dL 08-20 [facility] Basophils Auto (Bld) [#/Vol] Ordered By: Gregorio Carey on 08-22-2022 Basophils (Bld) [#/Vol] 0.0 10*3/uL 0.0-0.1 [facility] Basophils/100 WBC Auto (Bld) Ordered By: Gregorio Carey on 08-22-2022 Basophils/100 WBC (Bld) 0.3 % . [facility] Blood hemoglobin measurement (mass/volume)Ordered By: Gregorio Carey on 08-22-2022 Hemoglobin (Bld) [Mass/Vol] 13.1 g/dL 12.0-16.0 [facility] Blood leukocytes automated c ount (number/volume)Ordered By: Gregorio Carey on 08-22-2022 WBC (Bld) [#/Vol] 9.7 10*3/uL 4.5-13.5 [facility] Creatinine and Glomerular fi ltration rate.predicted panel (S/P/Bld)Ordered By: Gregorio Carey on 08-22-2022 Creatinine [Mass/Vol] 0.75 mg/dL 0.44-1.03 [facility] Eosinophils Auto (Bld) [#/Vo l]Ordered By: Gregorio Carey on 08-22-2022 Eosinophils (Bld) [#/Vol] 0.1 10*3/uL 0.0-0.7 [facility] Eosinophils/100 WBC Auto (Bl d)Ordered By: Gregorio Carey on 08-22-2022 Eosinophils/100 WBC (Bld) 1.0 % . [facility] Erythrocyte distribution wid th Auto (RBC) [Ratio]Ordered By: Gregorio Carey on 08-22-2022 Erythrocyte distribution width (RBC) [Ratio] 14.1 % 11.9-15.3 [facility] Estimated glomerular filtrat ion rate (GFR) non- AmericanOrdered By: Gregorio Carey on 08-22-2022 GFR/1.73 sq M.predicted among non-blacks MDRD (S/P/Bld) [Vol rate/Area] > 60 mL/Min [facility] Hematocrit Auto (Bld) [Volum e fraction]Ordered By: Gregorio Carey on 08-22-2022 Hematocrit (Bld) [Volume fraction] 39.6 % 36.0-46.0 [facility] Laboratory - Hematology and Cell countsOrdered By: Gregorio Carey on 08-22-2022 Nucleated RBC/100 WBC (Bld) [Ratio] 0.0 % 0-0.5 [facility] Lymphocytes Auto (Bld) [#/Vo l]Ordered By: Gregorio Carey on 08-22-2022 Lymphocytes (Bld) [#/Vol] 2.0 10*3/uL 1.20-4.8 [facility] Lymphocytes/100 WBC Auto (Bl d)Ordered By: Gregorio Carey on 08-22-2022 Lymphocytes/100 WBC (Bld) 20.5 % . [facility] MCH Auto (RBC) [Entitic mass ]Ordered By: Gregorio Carey on 08-22-2022 MCH (RBC) [Entitic mass] 28.0 pg 25.0-35.0 [facility] MCHC Auto (RBC) [Mass/Vol]Or dered By: Gregorio Carey on 08-22-2022 MCHC (RBC) [Mass/Vol] 33.2 g/dL 31.0-37.0 [facility] MCV Auto (RBC) [Entitic vol] Ordered By: Gregorio Carey on 08-22-2022 MCV (RBC) [Entitic vol] 84.5 fL 78-102 [facility] Monocytes Auto (Bld) [#/Vol] Ordered By: Gregorio Carey on 08-22-2022 Monocytes (Bld) [#/Vol] 0.8 10*3/uL 0.1-1.00 [facility] Monocytes/100 WBC Auto (Bld) Ordered By: Gregorio Carey on 08-22-2022 Monocytes/100 WBC (Bld) 8.0 % . [facility] Neutrophils Auto (Bld) [#/Vo l]Ordered By: Gregorio Carey on 08-22-2022 Neutrophils (Bld) [#/Vol] 6.8 10*3/uL 1.2-7.7 [facility] Neutrophils/100 WBC Auto (Bl d)Ordered By: Gregorio Carey on 08-22-2022 Neutrophils/100 WBC (Bld) 70.2 % . [facility] No Panel InformationOrdered By: Gregorio Carey on 08-22-2022 Estimated GFR () > 60 mL/Min [facility] Comment on above: GFR estimated refere nce range: According to KDOQI guidelines, <60 ml/min/1.73m2 is sufficient to diagnose a patient with chronic kidney disease. Pharmacy Creatinine Clearance (Chem 117.26 [facility] 9.7 10*3/uL 4.5-13.5 [facility] 0.0 % 0-0.5 [facility] > 60 mL/Min [facility] 117.26 [facility] Platelet mean volume Auto (B ld) [Entitic vol]Ordered By: Gregorio Carey on 08-22-2022 Platelet mean volume (Bld) [Entitic vol] 8.6 fL 6.3-10.7 [facility] Platelets Auto (Bld) [#/Vol] Ordered By: Gregorio Carey on 08-22-2022 Platelets (Bld) [#/Vol] 246 10*3/uL 150-450 [facility] RBC Auto (Bld) [#/Vol]Ordere d By: Gregorio Carey on 08-22-2022 RBC (Bld) [#/Vol] 4.69 10*6/uL 4.10-5.10 [facility] Serum nuclear antibody titer Ordered By: Gregorio Carey on 08-22-2022 Nuclear Ab (S) [Titer] Negative . [facility] Comment on above: Negative <1:80 Borde rline 1:80 Positive >1:80ICAP nomenclature: AC-0For more information about Hep-2 cell patterns useCOPPER SPRINGS HOSPITALpatterns.org, the official website for theInternational Consensus on Antinuclear Antibody (EDMOND)Patterns (ICAP).Performed at: [facility] [place] [id number] Director: Jaems Nelson PhD, Phone: [phone] Serum or plasma anion gap de terminationOrdered By: Gregorio Carey on 08-22-2022 Anion gap [Moles/Vol] 17.0 mmol/L 6.0-15.0 [facility] Serum or plasma beta choriog onadotropin measurement (units/volume)Ordered By: Gregorio Carey on 08-22-2022 HCG.beta subunit Qn m[IU]/mL [facility] Comment on above: Approximate Approxim [...] Calcium [Mass/Vol] 9.4 mg/dL 8.2-10.2 [facility] Serum or plasma chloride judy surement (moles/volume)Ordered By: Gregorio Carey on 08-22-2022 Chloride [Moles/Vol] 99 mmol/L 95-114 [facility] Serum or plasma creatinine m easurement with calculation of estimated glomerular filtrOrdered By: Gregorio Carey on 08-22-2022 Creatinine and Glomerular filtration rate.predicted panel (S/P/Bld) 0.75 mg/dL 0.44-1.03 [facility] Serum or plasma glucose tammy urement (mass/volume)Ordered By: Gregorio Carey on 08-22-2022 Glucose [Mass/Vol] 90 mg/dL 70-100 [facility] Comment on above: ADA recommended refe [...] on 08-22-2022 Potassium [Moles/Vol] 3.8 mmol/L 3.5-5.1 [facility] Serum or plasma sodium measu rement (moles/volume)Ordered By: Gregorio Carey on 08-22-2022 Sodium [Moles/Vol] 134 mmol/L 136-146 [facility] Serum or plasma total carbon dioxide measurement (moles/volume)Ordered By: Gregorio Carey on 08-22-2022 CO2 [Moles/Vol] 21.8 mmol/L 22.0-30.0 [facility] Serum or plasma urea nitroge n measurement (mass/volume)Ordered By: Gregorio Carey on 08-22-2022 Urea nitrogen [Mass/Vol] 7 mg/dL 9-23 [facility] Urine culture routineOrdered By: Gregorio Carey on 08-22-2022 Bacteria identified Cx Nom (U) 2 Days [facility] Urine culture routineOrdered By: Gilson Castro on 08-22-2022 Bacteria identified Cx Nom (U) 2 Days [facility] Urine culture routineOrdered By: Colten Fry on 08-21-2022 Bacteria identified Cx Nom (U) 2 Days [facility] Amphetamine Screen Ql (U)Ord ered By: Gilson Castro on 08-20-2022 Amphetamines Ql (U) Negative Negative [facility] Automated erythrocytes count in urine sediment (number/area)Ordered By: Gilson Castro on 08-20-2022 RBC Auto (Urine sed) [#/Area] None seen [HPF] 0-4 [facility] Automated leukocytes count i n urine sediment (number/area)Ordered By: Gilson Castro on 08-20-2022 WBC Auto (Urine sed) [#/Area] 1-2 [HPF] 0-4 [facility] Barbiturates [Presence] in U rineOrdered By: Gilson Castro on 08-20-2022 Barbiturates Ql (U) Positive Negative [facility] Basophils Auto (Bld) [#/Vol] Ordered By: Gilson Castro on 08-20-2022 Basophils (Bld) [#/Vol] 0.0 10*3/uL 0.0-0.1 [facility] Basophils/100 WBC Auto (Bld) Ordered By: Gilson Castro on 08-20-2022 Basophils/100 WBC (Bld) 0.4 % . [facility] Benzodiazepines [Presence] i n UrineOrdered By: Gilson Castro on 08-20-2022 Benzodiazepines Ql (U) Negative Negative [facility] Bilirubin Test strip Ql (U)O rdered By: Gilson Castro on 08-20-2022 Bilirubin Ql (U) Negative Negative [facility] Blood anisocytosis detection Ordered By: Gilson Castro on 08-20-2022 Anisocytosis Ql (Bld) Slight [facility] Blood hemoglobin measurement (mass/volume)Ordered By: Gilson Castro on 08-20-2022 Hemoglobin (Bld) [Mass/Vol] 12.1 g/dL 12.0-16.0 [facility] Blood leukocytes automated c ount (number/volume)Ordered By: Gilson Castro on 08-20-2022 WBC (Bld) [#/Vol] 10.9 10*3/uL 4.5-13.5 [facility] COVID-19 Positive/NegativeOr dered By: Ravi Arguello on 08-20-2022 SARS-CoV-2 (COVID-19) N gene JANAK+probe Ql (Resp) Negative Negative [facility] Comment on above: Testing for SARS-CoV -2 by RT-PCR This test was developed and its performance characteristics determined by [employer] ([employer]) and validated at the [facility]. This test has not been [...] developed and its performance characteristics determined by [employer] ([employer]) and validated at the [facility]. This test has not been [...] (COVID-19) Ag IA.rapid Ql (Resp) Negative Negative [facility] Comment on above: This is a duplicate [employer]ia SARS Antigen (JOSE A) result to be used for statistical tracking purpose only. Cannabinoids [Presence] in U rine by Screen methodOrdered By: Gilson Csatro on 08-20-2022 Cannabinoids Screen Ql (U) Positive Negative [facility] Comment on above: These are [...] Castro on 08-20-2022 Color (U) Yellow Yellow [facility] Creatinine and Glomerular fi ltration rate.predicted panel (S/P/Bld)Ordered By: Gilson Castro on 08-20-2022 Creatinine [Mass/Vol] 0.65 mg/dL 0.44-1.03 [facility] Eosinophils Auto (Bld) [#/Vo l]Ordered By: Gilson Castro on 08-20-2022 Eosinophils (Bld) [#/Vol] 0.0 10*3/uL 0.0-0.7 [facility] Eosinophils/100 WBC Auto (Bl d)Ordered By: Gilson Castro on 08-20-2022 Eosinophils/100 WBC (Bld) 0.3 % . [facility] Erythrocyte distribution wid th Auto (RBC) [Ratio]Ordered By: Gilson Castro on 08-20-2022 Erythrocyte distribution width (RBC) [Ratio] 13.9 % 11.9-15.3 [facility] Estimated glomerular filtrat ion rate (GFR) non- AmericanOrdered By: Gilson Castro on 08-20-2022 GFR/1.73 sq M.predicted among non-blacks MDRD (S/P/Bld) [Vol rate/Area] > 60 mL/Min [facility] Hematocrit Auto (Bld) [Volum e fraction]Ordered By: Gilson Castro on 08-20-2022 Hematocrit (Bld) [Volume fraction] 36.8 % 36.0-46.0 [facility] Ketones Auto test strip (U) [Mass/Vol]Ordered By: Gilson Castro on 08-20-2022 Ketones (U) [Mass/Vol] 2+ Negative [facility] Laboratory - Chemistry and C hemistry - challengeOrdered By: Gilson Castro on 08-20-2022 Magnesium [Mass/Vol] 1.9 mg/dL 1.6-2.6 [facility] Laboratory - Drug toxicology Ordered By: Gilson Castro on 08-20-2022 Opiates Ql (U) Negative Negative [facility] Laboratory - Hematology and Cell countsOrdered By: Gilson Castro on 08-20-2022 Nucleated RBC/100 WBC (Bld) [Ratio] 0.0 % 0-0.5 [facility] - UrinalysisOrder ed By: Gilson Castro on 08-20-2022 Hyaline casts LM Ql (Urine sed) None seen [LPF] 0-8 [facility] Lymphocytes Auto (Bld) [#/Vo l]Ordered By: Gilson Castro on 08-20-2022 Lymphocytes (Bld) [#/Vol] 1.3 10*3/uL 1.20-4.8 [facility] Lymphocytes/100 WBC Auto (Bl d)Ordered By: Gilson Castro on 08-20-2022 Lymphocytes/100 WBC (Bld) 11.5 % . [facility] MCH Auto (RBC) [Entitic mass ]Ordered By: Gilson Castro on 08-20-2022 MCH (RBC) [Entitic mass] 28.1 pg 25.0-35.0 [facility] MCHC Auto (RBC) [Mass/Vol]Or dered By: Gilson Castro on 08-20-2022 MCHC (RBC) [Mass/Vol] 32.9 g/dL 31.0-37.0 [facility] MCV Auto (RBC) [Entitic vol] Ordered By: Gilson Castro on 08-20-2022 MCV (RBC) [Entitic vol] 85.5 fL 78-102 [facility] Monocytes Auto (Bld) [#/Vol] Ordered By: Gilson Castro on 08-20-2022 Monocytes (Bld) [#/Vol] 0.4 10*3/uL 0.1-1.00 [facility] Monocytes/100 WBC Auto (Bld) Ordered By: Gilson Castro on 08-20-2022 Monocytes/100 WBC (Bld) 3.7 % . [facility] Neutrophils Auto (Bld) [#/Vo l]Ordered By: Gilson Castro on 08-20-2022 Neutrophils (Bld) [#/Vol] 9.2 10*3/uL 1.2-7.7 [facility] Neutrophils/100 WBC Auto (Bl d)Ordered By: Gilson Castro on 08-20-2022 Neutrophils/100 WBC (Bld) 84.1 % . [facility] Nitrite Test strip Ql (U)Ord ered By: Gilson Castro on 08-20-2022 Nitrite Ql (U) Negative Negative [facility] No Panel InformationOrdered By: Gilson Castro on 08-20-2022 None seen [LPF] 0-8 [facility] Negative Negative [facility] Estimated GFR () > 60 mL/Min [facility] Comment on above: GFR estimated refere nce range: According to KDOQI guidelines, <60 ml/min/1.73m2 is sufficient to diagnose a patient with chronic kidney disease. Pharmacy Creatinine Clearance (Chem 136.96 [facility] Platelet Estimate Normal Normal [facility] Platelet Morphology Comment Normal Normal [facility] Normal Normal [facility] 1.9 mg/dL 1.6-2.6 [facility] No Panel InformationOrdered By: Ravi Arguello on 08-20-2022 SARS Antigen (LFIA) [facility] Phencyclidine Screen Ql (U)O rdered By: Gilson Castro on 08-20-2022 Phencyclidine Ql (U) Negative Negative [facility] Platelet mean volume Auto (B ld) [Entitic vol]Ordered By: Gilson Castro on 08-20-2022 Platelet mean volume (Bld) [Entitic vol] 8.6 fL 6.3-10.7 [facility] Platelets Auto (Bld) [#/Vol] Ordered By: Gilson Castro on 08-20-2022 Platelets (Bld) [#/Vol] 145 10*3/uL 150-450 [facility] Comment on above: Delta: 314 on Protein Auto test strip (U) [Mass/Vol]Ordered By: Gilson Castro on 08-20-2022 Protein (U) [Mass/Vol] Negative Negative [facility] RBC Auto (Bld) [#/Vol]Ordere d By: Gilson Castro on 08-20-2022 RBC (Bld) [#/Vol] 4.31 10*6/uL 4.10-5.10 [facility] RBC morphologyOrdered By: Pierce Castro on 08-20-2022 RBC morphology finding Nom (Bld) N/A [facility] Serum or plasma anion gap de terminationOrdered By: Gilson Castro on 08-20-2022 Anion gap [Moles/Vol] 15.2 mmol/L 6.0-15.0 [facility] Serum or plasma calcium tammy urement (mass/volume)Ordered By: Gilson Castro on 08-20-2022 Calcium [Mass/Vol] 8.6 mg/dL 8.2-10.2 [facility] Serum or plasma chloride judy surement (moles/volume)Ordered By: Gilson Castro on 08-20-2022 Chloride [Moles/Vol] 101 mmol/L 95-114 [facility] Serum or plasma glucose tammy urement (mass/volume)Ordered By: Gilson Castro on 08-20-2022 Glucose [Mass/Vol] 96 mg/dL 70-100 [facility] Comment on above: ADA recommended refe rence range Random Glucose Reference Range is dependent on time and content of last meal. Glucose of more than 200 mg/dL in a nonstressed, ambulatory subject supports the diagnosis of Diabetes Mellitus. Serum or plasma potassium me asurement (moles/volume)Ordered By: Gilson Castro on 08-20-2022 Potassium [Moles/Vol] 3.1 mmol/L 3.5-5.1 [facility] Serum or plasma sodium measu rement (moles/volume)Ordered By: Gilson Castro on 08-20-2022 Sodium [Moles/Vol] 135 mmol/L 136-146 [facility] Serum or plasma total carbon dioxide measurement (moles/volume)Ordered By: Gilson Castro on 08-20-2022 CO2 [Moles/Vol] 21.9 mmol/L 22.0-30.0 [facility] Serum or plasma urea nitroge n measurement (mass/volume)Ordered By: Gilson Castro on 08-20-2022 Urea nitrogen [Mass/Vol] 11 mg/dL 08-20 [facility] Specific gravity Auto test s trip (U) [Rel density]Ordered By: Gilson Castro on 08-20-2022 Specific gravity (U) [Rel density] 1.008 1.001-1.03 0 [facility] Squamous epithelial cells de tection in urine sediment by light microscopyOrdered By: Gilson Castro on 08-20-2022 Epithelial cells.squamous LM Ql (Urine sed) 1-2 [HPF] 0-2 [facility] Urine bacteria detection by automated methodOrdered By: Gilson Castro on 08-20-2022 Bacteria Auto Ql (U) None seen None Seen [facility] Urine clarity by refractomet ry automatedOrdered By: Gilson Castro on 08-20-2022 Clarity Refractometry automated (U) Clear Clear [facility] Urine cocaine detectionOrder ed By: Gilson Castro on 08-20-2022 Cocaine Ql (U) Negative Negative [facility] Urine glucose measurement by automated test strip (mass/volume)Ordered By: Gilson Castro on 08-20-2022 Glucose Auto test strip (U) [Mass/Vol] Normal mg/dL Normal [facility] Urine hemoglobin detection b y automated test stripOrdered By: Gilson Castro on 08-20-2022 Hemoglobin Auto test strip Ql (U) Negative Negative [facility] Urine leukocyte esterase det ection by automated test stripOrdered By: Gilson Matthew on 08-20-2022 Leukocyte esterase Auto test strip Ql (U) 1+ Negative [facility] Urobilinogen Auto test strip (U) [Mass/Vol]Ordered By: Gilson Castro on 08-20-2022 Urobilinogen (U) [Mass/Vol] Normal mg/dL Normal [facility] pH Auto test strip (U)Ordere d By: Gilson Castro on 08-20-2022 pH (U) 7.0 [pH] 5.0-9.0 [facility] Automated erythrocytes count in urine sediment (number/area)Ordered By: Gilson Castro on 08-19-2022 RBC Auto (Urine sed) [#/Area] 3-4 [HPF] 0-4 [facility] Automated erythrocytes count in urine sediment (number/area)Ordered By: Colten Fry on 08-19-2022 RBC Auto (Urine sed) [#/Area] None seen [HPF] 0-4 [facility] Automated leukocytes count i n urine sediment (number/area)Ordered By: Gilson Castro on 08-19-2022 WBC Auto (Urine sed) [#/Area] 20-49 [HPF] 0-4 [facility] Automated leukocytes count i n urine sediment (number/area)Ordered By: Colten Fry on 08-19-2022 WBC Auto (Urine sed) [#/Area] 5-9 [HPF] 0-4 [facility] Automated urine hyaline cast s count (number/volume)Ordered By: Gilson Castro on 08-19-2022 Hyaline casts Auto (U) [#/Vol] None seen [LPF] 0-1 [facility] Basophils Auto (Bld) [#/Vol] Ordered By: Gilson Castro on 08-19-2022 Basophils (Bld) [#/Vol] 0.0 10*3/uL 0.0-0.1 [facility] Basophils Auto (Bld) [#/Vol] Ordered By: Colten Fry on 08-19-2022 Basophils (Bld) [#/Vol] 0.0 10*3/uL 0.0-0.1 [facility] Basophils/100 WBC Auto (Bld) Ordered By: Gilson Castro on 08-19-2022 Basophils/100 WBC (Bld) 0.2 % . [facility] Basophils/100 WBC Auto (Bld) Ordered By: Colten Fry on 08-19-2022 Basophils/100 WBC (Bld) 0.4 % . [facility] Bilirubin Test strip Ql (U)O rdered By: Gilson Castro on 08-19-2022 Bilirubin Ql (U) Negative Negative [facility] Bilirubin Test strip Ql (U)O rdered By: Colten Fry on 08-19-2022 Bilirubin Ql (U) Negative Negative [facility] Blood hemoglobin measurement (mass/volume)Ordered By: Gilson Castro on 08-19-2022 Hemoglobin (Bld) [Mass/Vol] 13.2 g/dL 12.0-16.0 [facility] Blood hemoglobin measurement (mass/volume)Ordered By: Colten Fry on 08-19-2022 Hemoglobin (Bld) [Mass/Vol] 12.8 g/dL 12.0-16.0 [facility] Blood leukocytes automated c ount (number/volume)Ordered By: Gilson Castro on 08-19-2022 WBC (Bld) [#/Vol] 15.5 10*3/uL 4.5-13.5 [facility] Blood leukocytes automated c ount (number/volume)Ordered By: Colten Fry on 08-19-2022 WBC (Bld) [#/Vol] 13.5 10*3/uL 4.5-13.5 [facility] Body fluid albumin measureme nt (mass/volume)Ordered By: Gilson Castro on 08-19-2022 Albumin (Body fld) [Mass/Vol] 4.0 g/dL 3.2-5.5 [facility] Body fluid albumin measureme nt (mass/volume)Ordered By: Colten Fry on 08-19-2022 Albumin (Body fld) [Mass/Vol] 4.5 g/dL 3.2-5.5 [facility] COVID-19 SOFIAOrdered By: Pierce Castro on 08-19-2022 SARS-CoV+SARS-CoV-2 (COVID-19) Ag IA.rapid Ql (Resp) Negative Negative [facility] Comment on above: This is a duplicate [employer]ia SARS Antigen (JOSE A) result to be used for statistical tracking purpose only. Casts typing in urine sedime nt by light microscopyOrdered By: Gilson Castro on 08-19-2022 Casts LM Nom (Urine sed) None seen [LPF] None Seen [facility] Casts typing in urine sedime nt by light microscopyOrdered By: Colten Fry on 08-19-2022 Casts LM Nom (Urine sed) N/A [facility] Color Auto (U)Ordered By: Pierce Castro on 08-19-2022 Color (U) Yellow Yellow [facility] Color Auto (U)Ordered By: Vida Fry on 08-19-2022 Color (U) Yellow Yellow [facility] Creatinine and Glomerular fi ltration rate.predicted panel (S/P/Bld)Ordered By: Gilson Castro on 08-19-2022 Creatinine [Mass/Vol] 0.73 mg/dL 0.44-1.03 [facility] Creatinine and Glomerular fi ltration rate.predicted panel (S/P/Bld)Ordered By: Colten Fry on 08-19-2022 Creatinine [Mass/Vol] 0.82 mg/dL 0.44-1.03 [facility] Eosinophils Auto (Bld) [#/Vo l]Ordered By: Gilson Castro on 08-19-2022 Eosinophils (Bld) [#/Vol] 0.0 10*3/uL 0.0-0.7 [facility] Eosinophils Auto (Bld) [#/Vo l]Ordered By: Colten Fry on 08-19-2022 Eosinophils (Bld) [#/Vol] 0.0 10*3/uL 0.0-0.7 [facility] Eosinophils/100 WBC Auto (Bl d)Ordered By: Gilson Castro on 08-19-2022 Eosinophils/100 WBC (Bld) 0.2 % . [facility] Eosinophils/100 WBC Auto (Bl d)Ordered By: Colten Fry on 08-19-2022 Eosinophils/100 WBC (Bld) 0.0 % . [facility] Erythrocyte distribution wid th Auto (RBC) [Ratio]Ordered By: Gilson Castro on 08-19-2022 Erythrocyte distribution width (RBC) [Ratio] 14.4 % 11.9-15.3 [facility] Erythrocyte distribution wid th Auto (RBC) [Ratio]Ordered By: Colten Fry on 08-19-2022 Erythrocyte distribution width (RBC) [Ratio] 14.3 % 11.9-15.3 [facility] Estimated glomerular filtrat ion rate (GFR) non- AmericanOrdered By: Gilson Castro on 08-19-2022 GFR/1.73 sq M.predicted among non-blacks MDRD (S/P/Bld) [Vol rate/Area] > 60 mL/Min [facility] Estimated glomerular filtrat ion rate (GFR) non- AmericanOrdered By: Colten Fry on 08-19-2022 GFR/1.73 sq M.predicted among non-blacks MDRD (S/P/Bld) [Vol rate/Area] > 60 mL/Min [facility] Globulin Calc (S) [Mass/Vol] Ordered By: Gilson Castro on 08-19-2022 Globulin (S) [Mass/Vol] 2.7 g/dL [facility] Globulin Calc (S) [Mass/Vol] Ordered By: Colten Fry on 08-19-2022 Globulin (S) [Mass/Vol] 3.0 g/dL [facility] HCG ( test) IA.rapi d Ql (U)Ordered By: Gilson Castro on 08-19-2022 HCG ( test) Ql (U) Negative [facility] HCG ( test) IA.rapi d Ql (U)Ordered By: Colten Fry on 08-19-2022 HCG ( test) Ql (U) Negative [facility] Hematocrit Auto (Bld) [Volum e fraction]Ordered By: Gilson Castro on 08-19-2022 Hematocrit (Bld) [Volume fraction] 40.6 % 36.0-46.0 [facility] Hematocrit Auto (Bld) [Volum e fraction]Ordered By: Colten Fry on 08-19-2022 Hematocrit (Bld) [Volume fraction] 39.5 % 36.0-46.0 [facility] Ketones Auto test strip (U) [Mass/Vol]Ordered By: Gilson Castro on 08-19-2022 Ketones (U) [Mass/Vol] 4+ Negative [facility] Ketones Auto test strip (U) [Mass/Vol]Ordered By: Colten Fry on 08-19-2022 Ketones (U) [Mass/Vol] 3+ Negative [facility] Laboratory - Chemistry and C hemistry - challengeOrdered By: Gilson Castro on 08-19-2022 Lipase [Catalytic activity/Vol] 24.0 U/L [facility] Magnesium [Mass/Vol] 2.0 mg/dL 1.6-2.6 [facility] Laboratory - Hematology and Cell countsOrdered By: Gilson Castro on 08-19-2022 Nucleated RBC/100 WBC (Bld) [Ratio] 0.1 % 0-0.5 [facility] Laboratory - Hematology and Cell countsOrdered By: Colten Fry on 08-19-2022 Nucleated RBC/100 WBC (Bld) [Ratio] 0.0 % 0-0.5 [facility] Laboratory - UrinalysisOrder ed By: Colten Fry on 08-19-2022 Hyaline casts LM Ql (Urine sed) None seen [LPF] 0-8 [facility] Lymphocytes Auto (Bld) [#/Vo l]Ordered By: Gilson Castro on 08-19-2022 Lymphocytes (Bld) [#/Vol] 2.3 10*3/uL 1.20-4.8 [facility] Lymphocytes Auto (Bld) [#/Vo l]Ordered By: Colten Fry on 08-19-2022 Lymphocytes (Bld) [#/Vol] 1.0 10*3/uL 1.20-4.8 [facility] Lymphocytes/100 WBC Auto (Bl d)Ordered By: Gilson Castro on 08-19-2022 Lymphocytes/100 WBC (Bld) 14.6 % . [facility] Lymphocytes/100 WBC Auto (Bl d)Ordered By: Colten Fry on 08-19-2022 Lymphocytes/100 WBC (Bld) 7.3 % . [facility] MCH Auto (RBC) [Entitic mass ]Ordered By: Gilson Castro on 08-19-2022 MCH (RBC) [Entitic mass] 27.9 pg 25.0-35.0 [facility] MCH Auto (RBC) [Entitic mass ]Ordered By: Colten Fry on 08-19-2022 MCH (RBC) [Entitic mass] 27.7 pg 25.0-35.0 [facility] MCHC Auto (RBC) [Mass/Vol]Or dered By: Gilson Castro on 08-19-2022 MCHC (RBC) [Mass/Vol] 32.6 g/dL 31.0-37.0 [facility] MCHC Auto (RBC) [Mass/Vol]Or dered By: Colten Fry on 08-19-2022 MCHC (RBC) [Mass/Vol] 32.3 g/dL 31.0-37.0 [facility] MCV Auto (RBC) [Entitic vol] Ordered By: Gilson Castro on 08-19-2022 MCV (RBC) [Entitic vol] 85.6 fL 78-102 [facility] MCV Auto (RBC) [Entitic vol] Ordered By: Colten Fry on 08-19-2022 MCV (RBC) [Entitic vol] 85.7 fL 78-102 [facility] Monocytes Auto (Bld) [#/Vol] Ordered By: Gilson Castro on 08-19-2022 Monocytes (Bld) [#/Vol] 1.1 10*3/uL 0.1-1.00 [facility] Monocytes Auto (Bld) [#/Vol] Ordered By: Colten Fry on 08-19-2022 Monocytes (Bld) [#/Vol] 0.3 10*3/uL 0.1-1.00 [facility] Monocytes/100 WBC Auto (Bld) Ordered By: Gilson Castro on 08-19-2022 Monocytes/100 WBC (Bld) 7.3 % . [facility] Monocytes/100 WBC Auto (Bld) Ordered By: Colten Fry on 08-19-2022 Monocytes/100 WBC (Bld) 2.1 % . [facility] Neutrophils Auto (Bld) [#/Vo l]Ordered By: Gilson Castro on 08-19-2022 Neutrophils (Bld) [#/Vol] 12.1 10*3/uL 1.2-7.7 [facility] Neutrophils Auto (Bld) [#/Vo l]Ordered By: Colten Fry on 08-19-2022 Neutrophils (Bld) [#/Vol] 12.2 10*3/uL 1.2-7.7 [facility] Neutrophils/100 WBC Auto (Bl d)Ordered By: Gilson Castro on 08-19-2022 Neutrophils/100 WBC (Bld) 77.7 % . [facility] Neutrophils/100 WBC Auto (Bl d)Ordered By: Colten Fry on 08-19-2022 Neutrophils/100 WBC (Bld) 90.2 % . [facility] Nitrite Test strip Ql (U)Ord ered By: Gilson Castro on 08-19-2022 Nitrite Ql (U) Negative Negative [facility] Nitrite Test strip Ql (U)Ord ered By: Colten Fry on 08-19-2022 Nitrite Ql (U) Negative Negative [facility] No Panel InformationOrdered By: Gilson Castro on 08-19-2022 Estimated GFR () > 60 mL/Min [facility] Comment on above: GFR estimated refere nce range: According to KDOQI guidelines, <60 ml/min/1.73m2 is sufficient to diagnose a patient with chronic kidney disease. Pharmacy Creatinine Clearance (Chem 121.95 [facility] > 60 mL/Min [facility] 2.0 mg/dL 1.6-2.6 [facility] 24.0 U/L 22-51 [facility] 121.95 [facility] 15.5 10*3/uL 4.5-13.5 [facility] 0.1 % 0-0.5 [facility] SARS Antigen (LFIA) [facility] No Panel InformationOrdered By: Colten Fry on 08-19-2022 None seen [LPF] 0-8 [facility] Estimated GFR () > 60 mL/Min [facility] Comment on above: GFR estimated refere nce range: According to KDOQI guidelines, <60 ml/min/1.73m2 is sufficient to diagnose a patient with chronic kidney disease. Pharmacy Creatinine Clearance (Chem 106.97 [facility] 13.5 10*3/uL 4.5-13.5 [facility] 0.0 % 0-0.5 [facility] > 60 mL/Min [facility] 106.97 [facility] Platelet mean volume Auto (B ld) [Entitic vol]Ordered By: Gilson Castro on 08-19-2022 Platelet mean volume (Bld) [Entitic vol] 8.8 fL 6.3-10.7 [facility] Platelet mean volume Auto (B ld) [Entitic vol]Ordered By: Colten Fry on 08-19-2022 Platelet mean volume (Bld) [Entitic vol] 8.7 fL 6.3-10.7 [facility] Platelets Auto (Bld) [#/Vol] Ordered By: Gilson Castro on 08-19-2022 Platelets (Bld) [#/Vol] 314 10*3/uL 150-450 [facility] Platelets Auto (Bld) [#/Vol] Ordered By: Colten Fry on 08-19-2022 Platelets (Bld) [#/Vol] 258 10*3/uL 150-450 [facility] Protein Auto test strip (U) [Mass/Vol]Ordered By: Gilson Castro on 08-19-2022 Protein (U) [Mass/Vol] 30 mg/dL Negative [facility] Protein Auto test strip (U) [Mass/Vol]Ordered By: Colten Fry on 08-19-2022 Protein (U) [Mass/Vol] Trace mg/dL Negative [facility] Protein [Mass/volume] in Ser um or PlasmaOrdered By: Gilson Castro on 08-19-2022 Protein [Mass/Vol] 6.7 g/dL 6.1-7.9 [facility] Protein [Mass/volume] in Ser um or PlasmaOrdered By: Colten Fry on 08-19-2022 Protein [Mass/Vol] 7.5 g/dL 6.1-7.9 [facility] RBC Auto (Bld) [#/Vol]Ordere d By: Gilson Castro on 08-19-2022 RBC (Bld) [#/Vol] 4.74 10*6/uL 4.10-5.10 [facility] RBC Auto (Bld) [#/Vol]Ordere d By: Colten Fry on 08-19-2022 RBC (Bld) [#/Vol] 4.60 10*6/uL 4.10-5.10 [facility] Serum or plasma alanine florez otransferase measurement without P-5'-P (enzymatic activiOrdered By: Gilson Castro on 08-19-2022 ALT No additional P-5'-P [Catalytic activity/Vol] 17 U/L [facility] Serum or plasma alanine florez otransferase measurement without P-5'-P (enzymatic activiOrdered By: Colten Fry on 08-19-2022 ALT No additional P-5'-P [Catalytic activity/Vol] 16 U/L [facility] Serum or plasma albumin/glob ulin mass ratioOrdered By: Gilson Castro on 08-19-2022 Albumin/Globulin [Mass ratio] 1.5 {ratio} [facility] Serum or plasma albumin/glob ulin mass ratioOrdered By: Colten Fry on 08-19-2022 Albumin/Globulin [Mass ratio] 1.5 {ratio} [facility] Serum or plasma alkaline justin sphatase measurement (enzymatic activity/volume)Ordered By: Gilson Castro on 08-19-2022 ALP [Catalytic activity/Vol] 51 U/L [address] Serum or plasma alkaline justin sphatase measurement (enzymatic activity/volume)Ordered By: Colten Fry on 08-19-2022 ALP [Catalytic activity/Vol] 59 U/L [address] Serum or plasma anion gap de terminationOrdered By: Gilson Castro on 08-19-2022 Anion gap [Moles/Vol] 13.8 mmol/L 6.0-15.0 [facility] Serum or plasma anion gap de terminationOrdered By: Colten Fry on 08-19-2022 Anion gap [Moles/Vol] 19.5 mmol/L 6.0-15.0 [facility] Serum or plasma aspartate am inotransferase measurement (enzymatic activity/volume)Ordered By: Gilson Castro on 08-19-2022 AST [Catalytic activity/Vol] 17 U/L [facility] Serum or plasma aspartate am inotransferase measurement (enzymatic activity/volume)Ordered By: Colten Fry on 08-19-2022 AST [Catalytic activity/Vol] 20 U/L 10-42 [facility] Serum or plasma calcium tammy urement (mass/volume)Ordered By: Gilson Castro on 08-19-2022 Calcium [Mass/Vol] 9.1 mg/dL 8.2-10.2 [facility] Serum or plasma calcium tammy urement (mass/volume)Ordered By: Colten Fry on 08-19-2022 Calcium [Mass/Vol] 9.8 mg/dL 8.2-10.2 [facility] Serum or plasma chloride judy surement (moles/volume)Ordered By: Gilson Castro on 08-19-2022 Chloride [Moles/Vol] 104 mmol/L 95-114 [facility] Serum or plasma chloride judy surement (moles/volume)Ordered By: Colten Fry on 08-19-2022 Chloride [Moles/Vol] 107 mmol/L 95-114 [facility] Serum or plasma creatinine m easurement with calculation of estimated glomerular filtrOrdered By: Gilson Castro on 08-19-2022 Creatinine and Glomerular filtration rate.predicted panel (S/P/Bld) 0.73 mg/dL 0.44-1.03 [facility] Serum or plasma creatinine m easurement with calculation of estimated glomerular filtrOrdered By: Colten Fry on 08-19-2022 Creatinine and Glomerular filtration rate.predicted panel (S/P/Bld) 0.82 mg/dL 0.44-1.03 [facility] Serum or plasma glucose tammy urement (mass/volume)Ordered By: Gilson Castro on 08-19-2022 Glucose [Mass/Vol] 108 mg/dL 70-100 [facility] Comment on above: ADA recommended refe [...] Glucose [Mass/Vol] 131 mg/dL 70-100 [facility] Comment on above: ADA recommended refe [...] on 08-19-2022 Potassium [Moles/Vol] 3.1 mmol/L 3.5-5.1 [facility] Serum or plasma potassium me asurement (moles/volume)Ordered By: Colten Fry on 08-19-2022 Potassium [Moles/Vol] 3.9 mmol/L 3.5-5.1 [facility] Serum or plasma sodium measu rement (moles/volume)Ordered By: Gilson Castro on 08-19-2022 Sodium [Moles/Vol] 138 mmol/L 136-146 [facility] Serum or plasma sodium measu rement (moles/volume)Ordered By: Colten Fry on 08-19-2022 Sodium [Moles/Vol] 142 mmol/L 136-146 [facility] Serum or plasma total biliru bin measurement (mass/volume)Ordered By: Gilson Castro on 08-19-2022 Bilirubin [Mass/Vol] 0.5 mg/dL 0.3-1.2 [facility] Serum or plasma total biliru bin measurement (mass/volume)Ordered By: Colten Fry on 08-19-2022 Bilirubin [Mass/Vol] 0.6 mg/dL 0.3-1.2 [facility] Serum or plasma total carbon dioxide measurement (moles/volume)Ordered By: Gilson Castro on 08-19-2022 CO2 [Moles/Vol] 23.3 mmol/L 22.0-30.0 [facility] Serum or plasma total carbon dioxide measurement (moles/volume)Ordered By: Colten Fry on 08-19-2022 CO2 [Moles/Vol] 19.4 mmol/L 22.0-30.0 [facility] Serum or plasma urea nitroge n measurement (mass/volume)Ordered By: Gilson Castro on 08-19-2022 Urea nitrogen [Mass/Vol] 15 mg/dL 08-20 [facility] Serum or plasma urea nitroge n measurement (mass/volume)Ordered By: Colten Fry on 08-19-2022 Urea nitrogen [Mass/Vol] 14 mg/dL 08-20 [facility] Specific gravity Auto test s trip (U) [Rel density]Ordered By: Gilson Castro on 08-19-2022 Specific gravity (U) [Rel density] 1.026 1.001-1.03 0 [facility] Specific gravity Auto test s trip (U) [Rel density]Ordered By: Colten Fry on 08-19-2022 Specific gravity (U) [Rel density] 1.023 1.001-1.03 0 [facility] Squamous epithelial cells de tection in urine sediment by light microscopyOrdered By: Gilson Castro on 08-19-2022 Epithelial cells.squamous LM Ql (Urine sed) 20-30 [HPF] 0-2 [facility] Squamous epithelial cells de tection in urine sediment by light microscopyOrdered By: Colten Fry on 08-19-2022 Epithelial cells.squamous LM Ql (Urine sed) 20-30 [HPF] 0-2 [facility] Urine bacteria detection by automated methodOrdered By: Gilson Castro on 08-19-2022 Bacteria Auto Ql (U) 2+ None Seen [facility] Urine bacteria detection by automated methodOrdered By: Colten Fry on 08-19-2022 Bacteria Auto Ql (U) 1+ None Seen [facility] Urine clarity by refractomet ry automatedOrdered By: Gilson Castro on 08-19-2022 Clarity Refractometry automated (U) Turbid Clear [facility] Urine clarity by refractomet ry automatedOrdered By: Colten Fry on 08-19-2022 Clarity Refractometry automated (U) Cloudy Clear [facility] Urine glucose measurement by automated test strip (mass/volume)Ordered By: Gilson Castro on 08-19-2022 Glucose Auto test strip (U) [Mass/Vol] Normal mg/dL Normal [facility] Urine glucose measurement by automated test strip (mass/volume)Ordered By: Colten Fry on 08-19-2022 Glucose Auto test strip (U) [Mass/Vol] Normal mg/dL Normal [facility] Urine hemoglobin detection b y automated test stripOrdered By: Gilson Castro on 08-19-2022 Hemoglobin Auto test strip Ql (U) Negative Negative [facility] Urine hemoglobin detection b y automated test stripOrdered By: Colten Fry on 08-19-2022 Hemoglobin Auto test strip Ql (U) Negative Negative [facility] Urine leukocyte esterase det ection by automated test stripOrdered By: Gilson Castro on 08-19-2022 Leukocyte esterase Auto test strip Ql (U) 2+ Negative [facility] Urine leukocyte esterase det ection by automated test stripOrdered By: Colten Fry on 08-19-2022 Leukocyte esterase Auto test strip Ql (U) 1+ Negative [facility] Urobilinogen Auto test strip (U) [Mass/Vol]Ordered By: Gilson Castro on 08-19-2022 Urobilinogen (U) [Mass/Vol] Normal mg/dL Normal [facility] Urobilinogen Auto test strip (U) [Mass/Vol]Ordered By: Colten Fry on 08-19-2022 Urobilinogen (U) [Mass/Vol] Normal mg/dL Normal [facility] pH Auto test strip (U)Ordere d By: Gilson Castro on 08-19-2022 pH (U) 8.0 [pH] 5.0-9.0 [facility] pH Auto test strip (U)Ordere d By: Colten Fry on 08-19-2022 pH (U) 6.0 [pH] 5.0-9.0 [facility] COVID-19 SOFIAOrdered By: Lul Rivera on 08-18-2022 SARS-CoV+SARS-CoV-2 (COVID-19) Ag IA.rapid Ql (Resp) Negative Negative [facility] Comment on above: This is a duplicate [facility] SARS Antigen (JOSE A) result to be used for statistical tracking purpose only. No Panel InformationOrdered By: Joss Rivera on 08-18-2022 SARS Antigen (LFIA) [facility] Basophils Auto (Bld) [#/Vol] Ordered By: Modesta Chand on 06-25-2022 Basophils (Bld) [#/Vol] 0.1 10*3/uL 0.0-0.1 [facility] Basophils/100 WBC Auto (Bld) Ordered By: Modesta Chand on 06-25-2022 Basophils/100 WBC (Bld) 1.2 % . [facility] Blood hemoglobin measurement (mass/volume)Ordered By: Modesta Chand on 06-25-2022 Hemoglobin (Bld) [Mass/Vol] 13.8 g/dL 12.0-16.0 [facility] Blood leukocytes automated c ount (number/volume)Ordered By: Modesta Chand on 06-25-2022 WBC (Bld) [#/Vol] 7.9 10*3/uL 4.5-13.5 [facility] Body fluid albumin measureme nt (mass/volume)Ordered By: Modesta Chand on 06-25-2022 Albumin (Body fld) [Mass/Vol] 4.5 g/dL 3.2-5.[address] [facility] [address] biopsyOrdered By: Yasmine Chand on 06-25-2022 Transferrin [Mass/Vol] 328 mg/dL 180-380 [facility] Creatinine and Glomerular fi ltration rate.predicted panel (S/P/Bld)Ordered By: Modesta Chand on 06-25-2022 Creatinine [Mass/Vol] 0.67 mg/dL 0.44-1.03 [facility] Eosinophils Auto (Bld) [#/Vo l]Ordered By: Modesta Chand on 06-25-2022 Eosinophils (Bld) [#/Vol] 0.6 10*3/uL 0.0-0.7 [facility] Eosinophils/100 WBC Auto (Bl d)Ordered By: Modesta Chand on 06-25-2022 Eosinophils/100 WBC (Bld) 7.2 % . [facility] Erythrocyte distribution wid th Auto (RBC) [Ratio]Ordered By: Modesta Chand on 06-25-2022 Erythrocyte distribution width (RBC) [Ratio] 13.6 % 11.9-15.3 [facility] Estimated glomerular filtrat ion rate (GFR) non- AmericanOrdered By: Modesta Chand on 06-25-2022 GFR/1.73 sq M.predicted among non-blacks MDRD (S/P/Bld) [Vol rate/Area] > 60 mL/Min [facility] Ferritin [Mass/volume] in Se rum or PlasmaOrdered By: Modesta Chand on 06-25-2022 Ferritin [Mass/Vol] 28.5 ng/mL 11-306.8 [facility] Globulin Calc (S) [Mass/Vol] Ordered By: Modesta Chand on 06-25-2022 Globulin (S) [Mass/Vol] 2.5 g/dL [facility] Hematocrit Auto (Bld) [Volum e fraction]Ordered By: Modesta Chand on 06-25-2022 Hematocrit (Bld) [Volume fraction] 42.3 % 36.0-46.0 [facility] Iron [Mass/volume] in Serum or PlasmaOrdered By: Modesta Chand on 06-25-2022 Iron [Mass/Vol] 52 ug/dL 40-150 [facility] Iron binding capacity [Mass/ volume] in Serum or PlasmaOrdered By: Modesta Chand on 06-25-2022 Iron binding capacity [Mass/Vol] 459 ug/dL 255-450 [facility] Iron saturation [Mass Fracti on] in Serum or PlasmaOrdered By: Modesta Chand on 06-25-2022 Iron saturation [Mass fraction] 11.0 % 20-50 [facility] Laboratory - Hematology and Cell countsOrdered By: Modesta Chand on 06-25-2022 Nucleated RBC/100 WBC (Bld) [Ratio] 0.0 % 0-0.5 [facility] Lymphocytes Auto (Bld) [#/Vo l]Ordered By: Modesta Chand on 06-25-2022 Lymphocytes (Bld) [#/Vol] 2.1 10*3/uL 1.20-4.8 [facility] Lymphocytes/100 WBC Auto (Bl d)Ordered By: Modesta Chand on 06-25-2022 Lymphocytes/100 WBC (Bld) 26.9 % . [facility] MCH Auto (RBC) [Entitic mass ]Ordered By: Modesta Chand on 06-25-2022 MCH (RBC) [Entitic mass] 28.1 pg 25.0-35.0 [facility] MCHC Auto (RBC) [Mass/Vol]Or dered By: Modesta Chand on 06-25-2022 MCHC (RBC) [Mass/Vol] 32.7 g/dL 31.0-37.0 [facility] MCV Auto (RBC) [Entitic vol] Ordered By: Modesta Chand on 06-25-2022 MCV (RBC) [Entitic vol] 85.8 fL 78-102 [facility] Monocytes Auto (Bld) [#/Vol] Ordered By: Modesta Chand on 06-25-2022 Monocytes (Bld) [#/Vol] 0.6 10*3/uL 0.1-1.00 [facility] Monocytes/100 WBC Auto (Bld) Ordered By: Modesta Chand on 06-25-2022 Monocytes/100 WBC (Bld) 7.2 % . [facility] Neutrophils Auto (Bld) [#/Vo l]Ordered By: Modesta Chand on 06-25-2022 Neutrophils (Bld) [#/Vol] 4.5 10*3/uL 1.2-7.7 [facility] Neutrophils/100 WBC Auto (Bl d)Ordered By: Modesta Chand on 06-25-2022 Neutrophils/100 WBC (Bld) 57.5 % . [facility] No Panel InformationOrdered By: Modesta Chand on 06-25-2022 25-Hydroxy Vitamin D Total 35.9 ng/mL 30-100 [facility] Comment on above: VITAMIN D STATUS 25( [place])VITAMIN D RANGE (ng/mL) Deficient <20 Insufficient 20 to <30 Sufficient 30 to 100 Reference: Danica MF,Chayo WOODRUFF, Sony GUERRERO, et al. Evaluation,treatment, and prevention of vitamin D deficiency; an Endocrine Society clinical practice guideline. JCEM. 2010; 96(7):1911-30. Absolute Reticulocyte Count 0.066 10*6/uL 0.024-0.08 4 [facility] Estimated GFR () > 60 mL/Min [facility] Comment on above: GFR estimated refere nce range: According to KDOQI guidelines, <60 ml/min/1.73m2 is sufficient to diagnose a patient with chronic kidney disease. Percent Reticulocyte Count 1.3 % 0.5-1.5 [facility] Pharmacy Creatinine Clearance (Chem N/A [facility] Platelet mean volume Auto (B ld) [Entitic vol]Ordered By: Modesta Chand on 06-25-2022 Platelet mean volume (Bld) [Entitic vol] 9.0 fL 6.3-10.7 [facility] Platelets Auto (Bld) [#/Vol] Ordered By: Modesta Chand on 06-25-2022 Platelets (Bld) [#/Vol] 263 10*3/uL 150-450 [facility] Protein [Mass/volume] in Ser um or PlasmaOrdered By: oMdesta Chand on 06-25-2022 Protein [Mass/Vol] 7.0 g/dL 6.1-7.9 [facility] RBC Auto (Bld) [#/Vol]Ordere d By: Modesta Chand on 06-25-2022 RBC (Bld) [#/Vol] 4.94 10*6/uL 4.10-5.10 [facility] Serum or plasma alanine florez otransferase measurement without P-5'-P (enzymatic activiOrdered By: Modesta Chand on 06-25-2022 ALT No additional P-5'-P [Catalytic activity/Vol] 18 U/L 10-60 [facility] Serum or plasma albumin/glob ulin mass ratioOrdered By: Modesta Chand on 06-25-2022 Albumin/Globulin [Mass ratio] 1.8 {ratio} [facility] Serum or plasma alkaline justin sphatase measurement (enzymatic activity/volume)Ordered By: Modesta Chand on 06-25-2022 ALP [Catalytic activity/Vol] 65 U/L 32-92 [facility] Serum or plasma aspartate am inotransferase measurement (enzymatic activity/volume)Ordered By: Modesta Chand on 06-25-2022 AST [Catalytic activity/Vol] 18 U/L 10- [facility] Serum or plasma calcium tammy urement (mass/volume)Ordered By: Modesta Cahnd on 06-25-2022 Calcium [Mass/Vol] 10.2 mg/dL 8.2-10.2 [facility] Serum or plasma chloride judy surement (moles/volume)Ordered By: Modesta Chand on 06-25-2022 Chloride [Moles/Vol] 102 mmol/L 95-114 [facility] Serum or plasma glucose tammy urement (mass/volume)Ordered By: Modesta Chand on 06-25-2022 Glucose [Mass/Vol] 87 mg/dL 70-100 [facility] Comment on above: ADA recommended refe rence range Random Glucose Reference Range is dependent on time and content of last meal. Glucose of more than 200 mg/dL in a nonstressed, ambulatory subject supports the diagnosis of Diabetes Mellitus. Serum or plasma potassium me asurement (moles/volume)Ordered By: Modesta Chand on 06-25-2022 Potassium [Moles/Vol] 4.4 mmol/L 3.5-5.1 [facility] Serum or plasma sodium measu rement (moles/volume)Ordered By: Modesta Chand on 06-25-2022 Sodium [Moles/Vol] 137 mmol/L 136-146 [facility] Serum or plasma total biliru bin measurement (mass/volume)Ordered By: Modesta Chand on 06-25-2022 Bilirubin [Mass/Vol] 0.4 mg/dL 0.3-1.2 [facility] Serum or plasma total carbon dioxide measurement (moles/volume)Ordered By: Modesta Chand on 06-25-2022 CO2 [Moles/Vol] 23.8 mmol/L 22.0-30.0 [facility] Serum or plasma urea nitroge n measurement (mass/volume)Ordered By: Modesta Chand on 06-25-2022 Urea nitrogen [Mass/Vol] 14 mg/dL 08-20 [facility] TSH DL <= 0.005 mIU/L QnOrde red By: Modesta Chand on 06-25-2022 TSH Qn 1.05 m[IU]/L 0.45-5.33 [facility] Thyroxine (T4) free [Mass/vo lume] in Serum or PlasmaOrdered By: Modesta Chand on 06-25-2022 Free T4 [Mass/Vol] 0.74 ng/dL 0.61-1.12 [facility] HCG ( test) IA.rapi d Ql (U)Ordered By: Brennen Britt on 06-09-2022 HCG ( test) Ql (U) Negative [facility] COVID-19 Positive/NegativeOr dered By: Brennen Britt on 06-07-2022 SARS-CoV-2 (COVID-19) N gene JANAK+probe Ql (Resp) Negative Negative [facility] Comment on above: Testing for SARS-CoV -2 by RT-PCR This test was developed and its performance characteristics determined by [employer] and validated at the [facility]. This test has not been [...] Albumin [Mass/Vol] 3.9 g/dL 3.2-5.5 [facility] Basophils Auto (Bld) [#/Vol] Ordered By: Modesta Chand on 05-26-2022 Basophils (Bld) [#/Vol] 0.1 10*3/uL 0.0-0.1 [facility] Basophils/100 WBC Auto (Bld) Ordered By: Modesta Chand on 05-26-2022 Basophils/100 WBC (Bld) 1.1 % . [facility] Blood hemoglobin measurement (mass/volume)Ordered By: Modesta Chand on 05-26-2022 Hemoglobin (Bld) [Mass/Vol] 13.6 g/dL 12.0-16.0 [facility] Blood leukocytes automated c ount (number/volume)Ordered By: Modesta Chand on 05-26-2022 WBC (Bld) [#/Vol] 10.6 10*3/uL 4.5-13.5 [facility] C reactive protein [Mass/vol ume] in Serum or PlasmaOrdered By: Modesta Chand on 05-26-2022 CRP [Mass/Vol] 0.6 mg/dL 0.0-1.[address] [facility] [address] biopsyOrdered By: Yasmine Chand on 05-26-2022 Transferrin [Mass/Vol] 292 mg/dL 180-380 [facility] Creatinine and Glomerular fi ltration rate.predicted panel (S/P/Bld)Ordered By: Modesta Chand on 05-26-2022 Creatinine [Mass/Vol] 0.63 mg/dL 0.44-1.03 [facility] Eosinophils Auto (Bld) [#/Vo l]Ordered By: Modesta Chand on 05-26-2022 Eosinophils (Bld) [#/Vol] 0.4 10*3/uL 0.0-0.7 [facility] Eosinophils/100 WBC Auto (Bl d)Ordered By: Modesta Chand on 05-26-2022 Eosinophils/100 WBC (Bld) 3.6 % . [facility] Erythrocyte distribution wid th Auto (RBC) [Ratio]Ordered By: Modesta Chand on 05-26-2022 Erythrocyte distribution width (RBC) [Ratio] 13.7 % 11.9-15.3 [facility] Erythrocyte sedimentation ra te by Photometric methodOrdered By: Modesta Chand on 05-26-2022 ESR Photometric method (Bld) [Velocity] 5 mm/hr 0-19 [facility] Estimated glomerular filtrat ion rate (GFR) non- AmericanOrdered By: Modesta Chand on 05-26-2022 GFR/1.73 sq M.predicted among non-blacks MDRD (S/P/Bld) [Vol rate/Area] > 60 mL/Min [facility] Ferritin [Mass/volume] in Se rum or PlasmaOrdered By: Modesta Chand on 05-26-2022 Ferritin [Mass/Vol] 14.2 ng/mL 11-306.8 [facility] Folate [Mass/volume] in Seru m or PlasmaOrdered By: Modesta Chand on 05-26-2022 Folate [Mass/Vol] 13.0 ng/mL >5.9 [facility] Comment on above: Folate reference ran ge: >5.9 ng/ml The WHO technical consultation on folate and vitamin b12 deficiencies has determined that folate concentrations less than 4 ng/ml are considered deficient. Globulin Calc (S) [Mass/Vol] Ordered By: Modesta Chand on 05-26-2022 Globulin (S) [Mass/Vol] 2.3 g/dL [facility] Glucose mean value [Mass/vol ume] in Blood Estimated from glycated hemoglobinOrdered By: Modesta Chand on 05-26-2022 Average glucose Estimated from glycated hemoglobin (Bld) [Mass/Vol] 111 mg/dL [facility] Hematocrit Auto (Bld) [Volum e fraction]Ordered By: Modesta Chand on 05-26-2022 Hematocrit (Bld) [Volume fraction] 41.4 % 36.0-46.0 [facility] Hemoglobin A1c percentageOrd ered By: Modesta Chand on 05-26-2022 HbA1c (Bld) [Mass fraction] 5.5 % 4.3-5.6 [facility] Comment on above: Increased risk for d iabetes: 5.7 - 6.4 diabetes: >6.4 glycemic control for adults with diabetes: <7.0 Iron [Mass/volume] in Serum or PlasmaOrdered By: Modesta Chand on 05-26-2022 Iron [Mass/Vol] 63 ug/dL 40-150 [facility] Iron binding capacity [Mass/ volume] in Serum or PlasmaOrdered By: Modesta Chand on 05-26-2022 Iron binding capacity [Mass/Vol] 409 ug/dL 255-450 [facility] Iron saturation [Mass Fracti on] in Serum or PlasmaOrdered By: Modesta Chand on 05-26-2022 Iron saturation [Mass fraction] 15.0 % 20-50 [facility] Laboratory - Chemistry and C hemistry - challengeOrdered By: Modesta Chand on 05-26-2022 Cobalamin (Vitamin B12) [Mass/Vol] 329 pg/mL 180-914 [facility] Laboratory - Hematology and Cell countsOrdered By: Modesta Chand on 05-26-2022 Nucleated RBC/100 WBC (Bld) [Ratio] 0.0 % 0-0.5 [facility] Lymphocytes Auto (Bld) [#/Vo l]Ordered By: Modesta Chand on 05-26-2022 Lymphocytes (Bld) [#/Vol] 2.3 10*3/uL 1.20-4.8 [facility] Lymphocytes/100 WBC Auto (Bl d)Ordered By: Modesta Chand on 05-26-2022 Lymphocytes/100 WBC (Bld) 21.6 % . [facility] MCH Auto (RBC) [Entitic mass ]Ordered By: Modesta Chand on 05-26-2022 MCH (RBC) [Entitic mass] 28.6 pg 25.0-35.0 [facility] MCHC Auto (RBC) [Mass/Vol]Or dered By: Modesta Chand on 05-26-2022 MCHC (RBC) [Mass/Vol] 33.0 g/dL 31.0-37.0 [facility] MCV Auto (RBC) [Entitic vol] Ordered By: Modesta Chand on 05-26-2022 MCV (RBC) [Entitic vol] 86.6 fL 78-102 [facility] Monocytes Auto (Bld) [#/Vol] Ordered By: Modesta Chand on 05-26-2022 Monocytes (Bld) [#/Vol] 0.6 10*3/uL 0.1-1.00 [facility] Monocytes/100 WBC Auto (Bld) Ordered By: Modesta Chand on 05-26-2022 Monocytes/100 WBC (Bld) 5.9 % . [facility] Neutrophils Auto (Bld) [#/Vo l]Ordered By: Modesta Chand on 05-26-2022 Neutrophils (Bld) [#/Vol] 7.2 10*3/uL 1.2-7.7 [facility] Neutrophils/100 WBC Auto (Bl d)Ordered By: Modesta Chand on 05-26-2022 Neutrophils/100 WBC (Bld) 67.8 % . [facility] No Panel InformationOrdered By: Modesta Chand on 05-26-2022 25-Hydroxy Vitamin D Total 26.9 ng/mL 30-100 [facility] Comment on above: VITAMIN D STATUS 25( [place])VITAMIN D RANGE (ng/mL) Deficient <20 Insufficient 20 to <30 Sufficient 30 to 100 Reference: Danica MF,Chayo NC, Sony GUERRERO, et al. Evaluation,treatment, and prevention of vitamin D deficiency; an Endocrine Society clinical practice guideline. JCEM. 2010; 96(7):1911-30. Estimated GFR () > 60 mL/Min [facility] Comment on above: GFR estimated refere nce range: According to KDOQI guidelines, <60 ml/min/1.73m2 is sufficient to diagnose a patient with chronic kidney disease. Pharmacy Creatinine Clearance (Chem N/A [facility] Platelet mean volume Auto (B ld) [Entitic vol]Ordered By: Modesta Chand on 05-26-2022 Platelet mean volume (Bld) [Entitic vol] 8.9 fL 6.3-10.7 [facility] Platelets Auto (Bld) [#/Vol] Ordered By: Modesta Chand on 05-26-2022 Platelets (Bld) [#/Vol] 286 10*3/uL 150-450 [facility] Protein [Mass/volume] in Ser um or PlasmaOrdered By: Modesta Chand on 05-26-2022 Protein [Mass/Vol] 6.2 g/dL 6.1-7.9 [facility] RBC Auto (Bld) [#/Vol]Ordere d By: Modesta Chand on 05-26-2022 RBC (Bld) [#/Vol] 4.78 10*6/uL 4.10-5.10 [facility] Serum nuclear antibody titer Ordered By: Modesta Chand on 05-26-2022 Nuclear Ab (S) [Titer] Negative . [facility] Comment on above: Negative <1:80 Borderline 1:80 Positive >1:80 ICAP nomenclature: AC-0 For more information about Hep-2 cell patterns use ANApatterns.org, the official website for the International Consensus on Antinuclear Antibody (EDMOND) Patterns (ICAP). Performed at: [facility] [id number] [employer] Pilot: James Nelson PhD, Phone: [phone] Serum or plasma alanine florez otransferase measurement without P-5'-P (enzymatic activiOrdered By: Modesta Chand on 05-26-2022 ALT No additional P-5'-P [Catalytic activity/Vol] 50 U/L 10-60 [facility] Serum or plasma albumin/glob ulin mass ratioOrdered By: Modesta Chand on 05-26-2022 Albumin/Globulin [Mass ratio] 1.7 {ratio} [facility] Serum or plasma alkaline justin sphatase measurement (enzymatic activity/volume)Ordered By: Modesta Chand on 05-26-2022 ALP [Catalytic activity/Vol] 58 U/L 32-92 [facility] Serum or plasma aspartate am inotransferase measurement (enzymatic activity/volume)Ordered By: Modesta Chand on 05-26-2022 AST [Catalytic activity/Vol] 25 U/L 10-42 [facility] Serum or plasma calcium tammy urement (mass/volume)Ordered By: Modesta Chand on 05-26-2022 Calcium [Mass/Vol] 9.3 mg/dL 8.2-10.2 [facility] Serum or plasma chloride judy surement (moles/volume)Ordered By: Modesta Chand on 05-26-2022 Chloride [Moles/Vol] 103 mmol/L 95-114 [facility] Serum or plasma glucose tammy urement (mass/volume)Ordered By: Modesta Chand on 05-26-2022 Glucose [Mass/Vol] 111 mg/dL 70-100 [facility] Comment on above: ADA recommended refe rence range Random Glucose Reference Range is dependent on time and content of last meal. Glucose of more than 200 mg/dL in a nonstressed, ambulatory subject supports the diagnosis of Diabetes Mellitus. Serum or plasma potassium me asurement (moles/volume)Ordered By: Modesta Chand on 05-26-2022 Potassium [Moles/Vol] 4.3 mmol/L 3.5-5.1 [facility] Serum or plasma sodium measu rement (moles/volume)Ordered By: Modesta Chand on 05-26-2022 Sodium [Moles/Vol] 137 mmol/L 136-146 [facility] Serum or plasma total biliru bin measurement (mass/volume)Ordered By: Modesta Chand on 05-26-2022 Bilirubin [Mass/Vol] 0.5 mg/dL 0.3-1.2 [facility] Serum or plasma total carbon dioxide measurement (moles/volume)Ordered By: Modesta Chand on 05-26-2022 CO2 [Moles/Vol] 24.9 mmol/L 22.0-30.0 [facility] Serum or plasma urea nitroge n measurement (mass/volume)Ordered By: Modesta Chand on 05-26-2022 Urea nitrogen [Mass/Vol] 9 mg/dL 9-23 [facility] Urine culture routineOrdered By: Gilson Castro on 05-18-2022 Bacteria identified Cx Nom (U) 2 Days [facility] Amphetamine Screen Ql (U)Ord ered By: Gilson Castro on 05-16-2022 Amphetamines Ql (U) Negative Negative [facility] Automated erythrocytes count in urine sediment (number/area)Ordered By: Gilson Castro on 05-16-2022 RBC Auto (Urine sed) [#/Area] 3-4 [HPF] 0-4 [facility] Automated leukocytes count i n urine sediment (number/area)Ordered By: Gilson Castro on 05-16-2022 WBC Auto (Urine sed) [#/Area] 5-9 [HPF] 0-4 [facility] Automated urine hyaline cast s count (number/volume)Ordered By: Gilson Castro on 05-16-2022 Hyaline casts Auto (U) [#/Vol] None seen [LPF] 0-1 [facility] Barbiturates [Presence] in U rineOrdered By: Gilson Castro on 05-16-2022 Barbiturates Ql (U) Positive Negative [facility] Basophils Auto (Bld) [#/Vol] Ordered By: Gilson Castro on 05-16-2022 Basophils (Bld) [#/Vol] 0.0 10*3/uL 0.0-0.1 [facility] Basophils/100 WBC Auto (Bld) Ordered By: Gilson Castro on 05-16-2022 Basophils/100 WBC (Bld) 0.4 % . [facility] Benzodiazepines [Presence] i n UrineOrdered By: Gilson Castro on 05-16-2022 Benzodiazepines Ql (U) Negative Negative [facility] Bilirubin Test strip Ql (U)O rdered By: Gilson Castro on 05-16-2022 Bilirubin Ql (U) Negative Negative [facility] Blood hemoglobin measurement (mass/volume)Ordered By: Gilson Castro on 05-16-2022 Hemoglobin (Bld) [Mass/Vol] 13.4 g/dL 12.0-16.0 [facility] Blood leukocytes automated c ount (number/volume)Ordered By: Gilson Castro on 05-16-2022 WBC (Bld) [#/Vol] 10.0 10*3/uL 4.5-13.5 [facility] Body fluid albumin measureme nt (mass/volume)Ordered By: Gilson Castro on 05-16-2022 Albumin (Body fld) [Mass/Vol] 4.3 g/dL 3.2-5.5 [facility] Cannabinoids [Presence] in U rine by Screen methodOrdered By: Gilson Castro on 05-16-2022 Cannabinoids Screen Ql (U) Positive Negative [facility] Comment on above: These are [...] (Urine sed) None seen [LPF] None Seen [facility] Color Auto (U)Ordered By: Pierce Castro on 05-16-2022 Color (U) Yellow Yellow [facility] Creatinine and Glomerular fi ltration rate.predicted panel (S/P/Bld)Ordered By: Gilson Castro on 05-16-2022 Creatinine [Mass/Vol] 0.80 mg/dL 0.44-1.03 [facility] Eosinophils Auto (Bld) [#/Vo l]Ordered By: Gilson Castro on 05-16-2022 Eosinophils (Bld) [#/Vol] 0.1 10*3/uL 0.0-0.7 [facility] Eosinophils/100 WBC Auto (Bl d)Ordered By: Gilson Castro on 05-16-2022 Eosinophils/100 WBC (Bld) 0.7 % . [facility] Erythrocyte distribution wid th Auto (RBC) [Ratio]Ordered By: Gilson Castro on 05-16-2022 Erythrocyte distribution width (RBC) [Ratio] 13.4 % 11.9-15.3 [facility] Estimated glomerular filtrat ion rate (GFR) non- AmericanOrdered By: Gilson Castro on 05-16-2022 GFR/1.73 sq M.predicted among non-blacks MDRD (S/P/Bld) [Vol rate/Area] > 60 mL/Min [facility] Globulin Calc (S) [Mass/Vol] Ordered By: Gilson Castro on 05-16-2022 Globulin (S) [Mass/Vol] 2.7 g/dL [facility] HCG ( test) IA.rapi d Ql (U)Ordered By: Gilson Castro on 05-16-2022 HCG ( test) Ql (U) Negative [facility] Hematocrit Auto (Bld) [Volum e fraction]Ordered By: Gilson Castro on 05-16-2022 Hematocrit (Bld) [Volume fraction] 39.4 % 36.0-46.0 [facility] Ketones Auto test strip (U) [Mass/Vol]Ordered By: Gilson Castro on 05-16-2022 Ketones (U) [Mass/Vol] 3+ Negative [facility] Laboratory - Chemistry and C hemistry - challengeOrdered By: Gilson Castro on 05-16-2022 Lipase [Catalytic activity/Vol] 26.0 U/L 22-51 [facility] Laboratory - Drug toxicology Ordered By: Gilson Castro on 05-16-2022 Opiates Ql (U) Negative Negative [facility] Laboratory - Hematology and Cell countsOrdered By: Gilson Castro on 05-16-2022 Nucleated RBC/100 WBC (Bld) [Ratio] 0.0 % 0-0.5 [facility] Lymphocytes Auto (Bld) [#/Vo l]Ordered By: Gilson Castro on 05-16-2022 Lymphocytes (Bld) [#/Vol] 1.9 10*3/uL 1.20-4.8 [facility] Lymphocytes/100 WBC Auto (Bl d)Ordered By: Gilson Castro on 05-16-2022 Lymphocytes/100 WBC (Bld) 18.7 % . [facility] MCH Auto (RBC) [Entitic mass ]Ordered By: Gilson Castro on 05-16-2022 MCH (RBC) [Entitic mass] 28.6 pg 25.0-35.0 [facility] MCHC Auto (RBC) [Mass/Vol]Or dered By: Gilson Castro on 05-16-2022 MCHC (RBC) [Mass/Vol] 34.1 g/dL 31.0-37.0 [facility] MCV Auto (RBC) [Entitic vol] Ordered By: Gilson Castro on 05-16-2022 MCV (RBC) [Entitic vol] 84.0 fL 78-102 [facility] Monocytes Auto (Bld) [#/Vol] Ordered By: Gilson Castro on 05-16-2022 Monocytes (Bld) [#/Vol] 0.9 10*3/uL 0.1-1.00 [facility] Monocytes/100 WBC Auto (Bld) Ordered By: Gilson Castro on 05-16-2022 Monocytes/100 WBC (Bld) 9.2 % . [facility] Neutrophils Auto (Bld) [#/Vo l]Ordered By: Gilson Castro on 05-16-2022 Neutrophils (Bld) [#/Vol] 7.1 10*3/uL 1.2-7.7 [facility] Neutrophils/100 WBC Auto (Bl d)Ordered By: Gilson Castro on 05-16-2022 Neutrophils/100 WBC (Bld) 71.0 % . [facility] Nitrite Test strip Ql (U)Ord ered By: Gilson Castro on 05-16-2022 Nitrite Ql (U) Negative Negative [facility] No Panel InformationOrdered By: Gilson Castro on 05-16-2022 Estimated GFR () > 60 mL/Min [facility] Comment on above: GFR estimated refere nce range: According to KDOQI guidelines, <60 ml/min/1.73m2 is sufficient to diagnose a patient with chronic kidney disease. Pharmacy Creatinine Clearance (Chem 109.65 [facility] Phencyclidine Screen Ql (U)O rdered By: Gilson Castro on 05-16-2022 Phencyclidine Ql (U) Negative Negative [facility] Platelet mean volume Auto (B ld) [Entitic vol]Ordered By: Gilson Castro on 05-16-2022 Platelet mean volume (Bld) [Entitic vol] 8.5 fL 6.3-10.7 [facility] Platelets Auto (Bld) [#/Vol] Ordered By: Gilson Castro on 05-16-2022 Platelets (Bld) [#/Vol] 241 10*3/uL 150-450 [facility] Protein Auto test strip (U) [Mass/Vol]Ordered By: Gilson Castro on 05-16-2022 Protein (U) [Mass/Vol] Trace mg/dL Negative [facility] Protein [Mass/volume] in Ser um or PlasmaOrdered By: Gilson Castro on 05-16-2022 Protein [Mass/Vol] 7.0 g/dL 6.1-7.9 [facility] RBC Auto (Bld) [#/Vol]Ordere d By: Gilson Castro on 05-16-2022 RBC (Bld) [#/Vol] 4.69 10*6/uL 4.10-5.10 [facility] Serum or plasma alanine florez otransferase measurement without P-5'-P (enzymatic activiOrdered By: Gilson Castro on 05-16-2022 ALT No additional P-5'-P [Catalytic activity/Vol] 23 U/L 10-60 [facility] Serum or plasma albumin/glob ulin mass ratioOrdered By: Gilson Castro on 05-16-2022 Albumin/Globulin [Mass ratio] 1.6 {ratio} [facility] Serum or plasma alkaline justin sphatase measurement (enzymatic activity/volume)Ordered By: Gilson Castro on 05-16-2022 ALP [Catalytic activity/Vol] 58 U/L 32-92 [facility] Serum or plasma aspartate am inotransferase measurement (enzymatic activity/volume)Ordered By: Gilson Castro on 05-16-2022 AST [Catalytic activity/Vol] 22 U/L 10-42 [facility] Serum or plasma calcium tammy urement (mass/volume)Ordered By: Gilson Castro on 05-16-2022 Calcium [Mass/Vol] 9.2 mg/dL 8.2-10.2 [facility] Serum or plasma chloride judy surement (moles/volume)Ordered By: Gilson Castro on 05-16-2022 Chloride [Moles/Vol] 97 mmol/L 95-114 [facility] Serum or plasma glucose tammy urement (mass/volume)Ordered By: Gilson Castro on 05-16-2022 Glucose [Mass/Vol] 90 mg/dL 70-100 [facility] Comment on above: ADA recommended refe rence range Random Glucose Reference Range is dependent on time and content of last meal. Glucose of more than 200 mg/dL in a nonstressed, ambulatory subject supports the diagnosis of Diabetes Mellitus. Serum or plasma potassium me asurement (moles/volume)Ordered By: Gilson Castro on 05-16-2022 Potassium [Moles/Vol] 3.2 mmol/L 3.5-5.1 [facility] Serum or plasma sodium measu rement (moles/volume)Ordered By: Gilson Castro on 05-16-2022 Sodium [Moles/Vol] 135 mmol/L 136-146 [facility] Serum or plasma total biliru bin measurement (mass/volume)Ordered By: Gilson Castro on 05-16-2022 Bilirubin [Mass/Vol] 1.0 mg/dL 0.3-1.2 [facility] Serum or plasma total carbon dioxide measurement (moles/volume)Ordered By: Gilson Castro on 05-16-2022 CO2 [Moles/Vol] 24.6 mmol/L 22.0-30.0 [facility] Serum or plasma urea nitroge n measurement (mass/volume)Ordered By: Gilson Castro on 05-16-2022 Urea nitrogen [Mass/Vol] 23 mg/dL 9- [facility] Specific gravity Auto test s trip (U) [Rel density]Ordered By: Gilson Castro on 05-16-2022 Specific gravity (U) [Rel density] 1.023 1.001-1.03 0 [facility] Squamous epithelial cells de tection in urine sediment by light microscopyOrdered By: Gilson Castro on 05-16-2022 Epithelial cells.squamous LM Ql (Urine sed) 20-30 [HPF] 0-2 [facility] Urine bacteria detection by automated methodOrdered By: Gilson Castro on 05-16-2022 Bacteria Auto Ql (U) 1+ None Seen [facility] Urine clarity by refractomet ry automatedOrdered By: Gilson Castro on 05-16-2022 Clarity Refractometry automated (U) Turbid Clear [facility] Urine cocaine detectionOrder ed By: Gilson Castro on 05-16-2022 Cocaine Ql (U) Negative Negative [facility] Urine glucose measurement by automated test strip (mass/volume)Ordered By: Gilson Castro on 05-16-2022 Glucose Auto test strip (U) [Mass/Vol] Normal mg/dL Normal [facility] Urine hemoglobin detection b y automated test stripOrdered By: Gilson Castro on 05-16-2022 Hemoglobin Auto test strip Ql (U) Negative Negative [facility] Urine leukocyte esterase det ection by automated test stripOrdered By: Gilson Castro on 05-16-2022 Leukocyte esterase Auto test strip Ql (U) 2+ Negative [facility] Urobilinogen Auto test strip (U) [Mass/Vol]Ordered By: Gilson Castro on 05-16-2022 Urobilinogen (U) [Mass/Vol] Normal mg/dL Normal [facility] pH Auto test strip (U)Ordere d By: Gilson Castro on 05-16-2022 pH (U) 8.0 [pH] 5.0-9.0 [facility] Albumin [Mass/volume] in Ser um or PlasmaOrdered By: Art Bianchi on 05-15-2022 Albumin [Mass/Vol] 4.7 g/dL 3.2-5.5 [facility] Basophils Auto (Bld) [#/Vol] Ordered By: Art Bianchi on 05-15-2022 Basophils (Bld) [#/Vol] 0.0 10*3/uL 0.0-0.1 [facility] Basophils/100 WBC Auto (Bld) Ordered By: Art Bianchi on 05-15-2022 Basophils/100 WBC (Bld) 0.2 % . [facility] Blood hemoglobin measurement (mass/volume)Ordered By: Art Bianchi on 05-15-2022 Hemoglobin (Bld) [Mass/Vol] 13.6 g/dL 12.0-16.0 [facility] Blood leukocytes automated c ount (number/volume)Ordered By: Art Bianchi on 05-15-2022 WBC (Bld) [#/Vol] 14.0 10*3/uL 4.5-13.5 [facility] Creatinine and Glomerular fi ltration rate.predicted panel (S/P/Bld)Ordered By: Art Bianchi on 05-15-2022 Creatinine [Mass/Vol] 0.76 mg/dL 0.44-1.03 [facility] Eosinophils Auto (Bld) [#/Vo l]Ordered By: Art Bianchi on 05-15-2022 Eosinophils (Bld) [#/Vol] 0.0 10*3/uL 0.0-0.7 [facility] Eosinophils/100 WBC Auto (Bl d)Ordered By: Art Bianchi on 05-15-2022 Eosinophils/100 WBC (Bld) 0.4 % . [facility] Erythrocyte distribution wid th Auto (RBC) [Ratio]Ordered By: Art Bianchi on 05-15-2022 Erythrocyte distribution width (RBC) [Ratio] 13.7 % 11.9-15.3 [facility] Estimated glomerular filtrat ion rate (GFR) non- AmericanOrdered By: Art Bianchi on 05-15-2022 GFR/1.73 sq M.predicted among non-blacks MDRD (S/P/Bld) [Vol rate/Area] > 60 mL/Min [facility] Globulin Calc (S) [Mass/Vol] Ordered By: Art Bianchi on 05-15-2022 Globulin (S) [Mass/Vol] 3.2 g/dL [facility] Hematocrit Auto (Bld) [Volum e fraction]Ordered By: Art Bianchi on 05-15-2022 Hematocrit (Bld) [Volume fraction] 41.0 % 36.0-46.0 [facility] Laboratory - Chemistry and C hemistry - challengeOrdered By: Art Bianchi on 05-15-2022 Lipase [Catalytic activity/Vol] 24.0 U/L 22-51 [facility] Laboratory - Hematology and Cell countsOrdered By: Art Bianchi on 05-15-2022 Nucleated RBC/100 WBC (Bld) [Ratio] 0.0 % 0-0.5 [facility] Lymphocytes Auto (Bld) [#/Vo l]Ordered By: Art Bianchi on 05-15-2022 Lymphocytes (Bld) [#/Vol] 2.6 10*3/uL 1.20-4.8 [facility] Lymphocytes/100 WBC Auto (Bl d)Ordered By: Art Bianchi on 05-15-2022 Lymphocytes/100 WBC (Bld) 18.4 % . [facility] MCH Auto (RBC) [Entitic mass ]Ordered By: Art Bianchi on 05-15-2022 MCH (RBC) [Entitic mass] 28.0 pg 25.0-35.0 [facility] MCHC Auto (RBC) [Mass/Vol]Or dered By: Art Bianchi on 05-15-2022 MCHC (RBC) [Mass/Vol] 33.3 g/dL 31.0-37.0 [facility] MCV Auto (RBC) [Entitic vol] Ordered By: Art Bianchi on 05-15-2022 MCV (RBC) [Entitic vol] 84.1 fL 78-102 [facility] Monocytes Auto (Bld) [#/Vol] Ordered By: Art Bianchi on 05-15-2022 Monocytes (Bld) [#/Vol] 1.2 10*3/uL 0.1-1.00 [facility] [place] [facility] Monocytes/100 WBC Auto (Bld) Ordered By: Art Bianchi on 05-15-2022 Monocytes/100 WBC (Bld) 8.3 % . [facility] [place] [facility] Neutrophils Auto (Bld) [#/Vo l]Ordered By: Art Bianchi on 05-15-2022 Neutrophils (Bld) [#/Vol] 10.2 10*3/uL 1.2-7.7 [facility] [place] [facility] Neutrophils/100 WBC Auto (Bl d)Ordered By: Art Bianchi on 05-15-2022 Neutrophils/100 WBC (Bld) 72.7 % . [facility] [place] [facility] No Panel InformationOrdered By: Art Bianchi on 05-15-2022 Estimated GFR () > 60 mL/Min [facility] [place] [facility] Comment on above: GFR estimated refere nce range: According to KDOQI guidelines, <60 ml/min/1.73m2 is sufficient to diagnose a patient with chronic kidney disease. Pharmacy Creatinine Clearance (Chem 115.34 [facility] [place] [facility] Platelet mean volume Auto (B ld) [Entitic vol]Ordered By: Art Bianchi on 05-15-2022 Platelet mean volume (Bld) [Entitic vol] 8.8 fL 6.3-10.7 [facility] [place] [facility] Platelets Auto (Bld) [#/Vol] Ordered By: Art Bianchi on 05-15-2022 Platelets (Bld) [#/Vol] 315 10*3/uL 150-450 [facility] [place] [facility] Protein [Mass/volume] in Ser um or PlasmaOrdered By: Art Bianchi on 05-15-2022 Protein [Mass/Vol] 7.9 g/dL 6.1-7.9 [facility] RBC Auto (Bld) [#/Vol]Ordere d By: Art Bianchi on 05-15-2022 RBC (Bld) [#/Vol] 4.88 10*6/uL 4.10-5.10 [facility] Serum or plasma alanine florez otransferase measurement without P-5'-P (enzymatic activiOrdered By: Art Bianchi on 05-15-2022 ALT No additional P-5'-P [Catalytic activity/Vol] 25 U/L 10-60 [facility] [place] [facility] Serum or plasma albumin/glob ulin mass ratioOrdered By: Art Bianchi on 05-15-2022 Albumin/Globulin [Mass ratio] 1.5 {ratio} [facility] [place] [facility] Serum or plasma alkaline justin sphatase measurement (enzymatic activity/volume)Ordered By: Art Bianchi on 05-15-2022 ALP [Catalytic activity/Vol] 66 U/L 32-92 [facility] [place] [facility] Serum or plasma aspartate am inotransferase measurement (enzymatic activity/volume)Ordered By: Art Bianchi on 05-15-2022 AST [Catalytic activity/Vol] 33 U/L 10-42 [facility] [place] [facility] Serum or plasma calcium tammy urement (mass/volume)Ordered By: Art Bianchi on 05-15-2022 Calcium [Mass/Vol] 10.1 mg/dL 8.2-10.2 [facility] Serum or plasma chloride judy surement (moles/volume)Ordered By: Art Bianchi on 05-15-2022 Chloride [Moles/Vol] 94 mmol/L 95-114 [facility] Serum or plasma glucose tammy urement (mass/volume)Ordered By: Art Bianchi on 05-15-2022 Glucose [Mass/Vol] 102 mg/dL 70-100 [facility] Comment on above: ADA recommended refe rence range Random Glucose Reference Range is dependent on time and content of last meal. Glucose of more than 200 mg/dL in a nonstressed, ambulatory subject supports the diagnosis of Diabetes Mellitus. Serum or plasma potassium me asurement (moles/volume)Ordered By: Art Bianchi on 05-15-2022 Potassium [Moles/Vol] 3.1 mmol/L 3.5-5.1 [facility] Serum or plasma sodium measu rement (moles/volume)Ordered By: Art Bianchi on 06-18-2022 Sodium [Moles/Vol] 135 mmol/L 136-146 [facility] Serum or plasma total biliru bin measurement (mass/volume)Ordered By: Art Bianchi on 05-15-2022 Bilirubin [Mass/Vol] 1.2 mg/dL 0.3-1.2 [facility] Serum or plasma total carbon dioxide measurement (moles/volume)Ordered By: Art Bianchi on 05-15-2022 CO2 [Moles/Vol] 22.2 mmol/L 22.0-30.0 [facility] Serum or plasma urea nitroge n measurement (mass/volume)Ordered By: Art Bianchi on 05-15-2022 Urea nitrogen [Mass/Vol] 23 mg/dL 9-23 [facility] [place] [facility] Albumin [Mass/volume] in Ser um or PlasmaOrdered By: Art Bianchi on 05-13-2022 Albumin [Mass/Vol] 4.3 g/dL 3.2-5.5 [facility] Automated erythrocytes count in urine sediment (number/area)Ordered By: Art Bianchi on 05-13-2022 RBC Auto (Urine sed) [#/Area] 1-2 [HPF] 0-4 [facility] [place] [facility] Automated leukocytes count i n urine sediment (number/area)Ordered By: Art Bianchi on 05-13-2022 WBC Auto (Urine sed) [#/Area] 1-2 [HPF] 0-4 [facility] [place] [facility] Basophils Auto (Bld) [#/Vol] Ordered By: Art Bianchi on 05-13-2022 Basophils (Bld) [#/Vol] 0.1 10*3/uL 0.0-0.1 [facility] [place] [facility] Basophils/100 WBC Auto (Bld) Ordered By: Art Bianchi on 05-13-2022 Basophils/100 WBC (Bld) 1.0 % . [facility] [place] [facility] Bilirubin Test strip Ql (U)O rdered By: Art Bianchi on 05-13-2022 Bilirubin Ql (U) Negative Negative [facility] Blood hemoglobin measurement (mass/volume)Ordered By: Art Bianchi on 05-13-2022 Hemoglobin (Bld) [Mass/Vol] 13.7 g/dL 12.0-16.0 [facility] [place] [facility] Blood leukocytes automated c ount (number/volume)Ordered By: Art Bianchi on 05-13-2022 WBC (Bld) [#/Vol] 10.4 10*3/uL 4.5-13.5 [facility] Color Auto (U)Ordered By: Adrian Bianchi on 05-13-2022 Color (U) Yellow Yellow [facility] [place] [facility] Creatinine and Glomerular fi ltration rate.predicted panel (S/P/Bld)Ordered By: Art Bianchi on 05-13-2022 Creatinine [Mass/Vol] 0.76 mg/dL 0.44-1.03 [facility] Eosinophils Auto (Bld) [#/Vo l]Ordered By: Art Bianchi on 05-13-2022 Eosinophils (Bld) [#/Vol] 0.5 10*3/uL 0.0-0.7 [facility] [place] [facility] Eosinophils/100 WBC Auto (Bl d)Ordered By: Art Bianchi on 05-13-2022 Eosinophils/100 WBC (Bld) 4.6 % . [facility] [place] [facility] Erythrocyte distribution wid th Auto (RBC) [Ratio]Ordered By: Art Bianchi on 05-13-2022 Erythrocyte distribution width (RBC) [Ratio] 13.6 % 11.9-15.3 [facility] [place] [facility] Estimated glomerular filtrat ion rate (GFR) non- AmericanOrdered By: Art Bianchi on 05-13-2022 GFR/1.73 sq M.predicted among non-blacks MDRD (S/P/Bld) [Vol rate/Area] > 60 mL/Min [facility] [place] [facility] Globulin Calc (S) [Mass/Vol] Ordered By: Art Bianchi on 05-13-2022 Globulin (S) [Mass/Vol] 2.7 g/dL [facility] [place] [facility] HCG ( test) IA.rapi d Ql (U)Ordered By: Art Bianchi on 05-13-2022 HCG ( test) Ql (U) Negative [facility] [place] [facility] Hematocrit Auto (Bld) [Volum e fraction]Ordered By: Art Bianchi on 05-13-2022 Hematocrit (Bld) [Volume fraction] 40.5 % 36.0-46.0 [facility] [place] [facility] Ketones Auto test strip (U) [Mass/Vol]Ordered By: Art Bianchi on 05-13-2022 Ketones (U) [Mass/Vol] Trace Negative [facility] Laboratory - Hematology and Cell countsOrdered By: Art Bianchi on 05-13-2022 Nucleated RBC/100 WBC (Bld) [Ratio] 0.0 % 0-0.5 [facility] [place] [facility] Laboratory - UrinalysisOrder ed By: Art Bianchi on 05-13-2022 Hyaline casts LM Ql (Urine sed) 0-8 [LPF] 0-8 [facility] [place] [facility] Lymphocytes Auto (Bld) [#/Vo l]Ordered By: Art Bianchi on 05-13-2022 Lymphocytes (Bld) [#/Vol] 1.4 10*3/uL 1.20-4.8 [facility] [place] [facility] Lymphocytes/100 WBC Auto (Bl d)Ordered By: Art Bianchi on 05-13-2022 Lymphocytes/100 WBC (Bld) 13.1 % . [facility] [place] [facility] MCH Auto (RBC) [Entitic mass ]Ordered By: Art Bianchi on 05-13-2022 MCH (RBC) [Entitic mass] 28.6 pg 25.0-35.0 [facility] [place] [facility] MCHC Auto (RBC) [Mass/Vol]Or dered By: Art Bianchi on 05-13-2022 MCHC (RBC) [Mass/Vol] 33.7 g/dL 31.0-37.0 [facility] MCV Auto (RBC) [Entitic vol] Ordered By: Art Bianchi on 05-13-2022 MCV (RBC) [Entitic vol] 84.7 fL 78-102 [facility] [place] [facility] Monocytes Auto (Bld) [#/Vol] Ordered By: Art Bianchi on 05-13-2022 Monocytes (Bld) [#/Vol] 0.4 10*3/uL 0.1-1.00 [facility] [place] [facility] Monocytes/100 WBC Auto (Bld) Ordered By: Art Bianchi on 05-13-2022 Monocytes/100 WBC (Bld) 4.2 % . [facility] [place] [facility] Neutrophils Auto (Bld) [#/Vo l]Ordered By: Art Bianchi on 05-13-2022 Neutrophils (Bld) [#/Vol] 8.0 10*3/uL 1.2-7.7 [facility] [place] [facility] Neutrophils/100 WBC Auto (Bl d)Ordered By: Art Bianchi on 05-13-2022 Neutrophils/100 WBC (Bld) 77.1 % . [facility] [place] [facility] Nitrite Test strip Ql (U)Ord ered By: Art Bianchi on 05-13-2022 Nitrite Ql (U) Negative Negative [facility] [place] [facility] No Panel InformationOrdered By: Art Bianchi on 05-13-2022 Estimated GFR () > 60 mL/Min [facility] [place] [facility] Comment on above: GFR estimated refere nce range: According to KDOQI guidelines, <60 ml/min/1.73m2 is sufficient to diagnose a patient with chronic kidney disease. Pharmacy Creatinine Clearance (Chem 112.80 [facility] [place] [facility] Platelet mean volume Auto (B ld) [Entitic vol]Ordered By: rAt Bianchi on 05-13-2022 Platelet mean volume (Bld) [Entitic vol] 8.6 fL 6.3-10.7 [facility] [place] [facility] Platelets Auto (Bld) [#/Vol] Ordered By: Art Bianchi on 05-13-2022 Platelets (Bld) [#/Vol] 264 10*3/uL 150-450 [facility] [place] [facility] Protein Auto test strip (U) [Mass/Vol]Ordered By: Art Bianchi on 05-13-2022 Protein (U) [Mass/Vol] 30 mg/dL Negative [facility] Protein [Mass/volume] in Ser um or PlasmaOrdered By: Art Bianchi on 05-13-2022 Protein [Mass/Vol] 7.0 g/dL 6.1-7.9 [facility] RBC Auto (Bld) [#/Vol]Ordere d By: Art Bianchi on 05-13-2022 RBC (Bld) [#/Vol] 4.78 10*6/uL 4.10-5.10 [facility] Serum or plasma alanine florez otransferase measurement without P-5'-P (enzymatic activiOrdered By: Art Bianchi on 06-16-2022 ALT No additional P-5'-P [Catalytic activity/Vol] 19 U/L 10-60 [facility] [place] [facility] Serum or plasma albumin/glob ulin mass ratioOrdered By: Art Bianchi on 05-13-2022 Albumin/Globulin [Mass ratio] 1.6 {ratio} [facility] [place] [facility] Serum or plasma alkaline justin sphatase measurement (enzymatic activity/volume)Ordered By: Art Bianchi on 05-13-2022 ALP [Catalytic activity/Vol] 69 U/L 32-92 [facility] [place] [facility] Serum or plasma aspartate am inotransferase measurement (enzymatic activity/volume)Ordered By: Art Bianchi on 05-13-2022 AST [Catalytic activity/Vol] 19 U/L 10-42 [facility] [place] [facility] Serum or plasma calcium tammy urement (mass/volume)Ordered By: Art Bianchi on 05-13-2022 Calcium [Mass/Vol] 9.9 mg/dL 8.2-10.2 [facility] Serum or plasma chloride judy surement (moles/volume)Ordered By: Art Bianchi on 05-13-2022 Chloride [Moles/Vol] 107 mmol/L 95-114 [facility] Serum or plasma glucose tammy urement (mass/volume)Ordered By: Art Bianchi on 05-13-2022 Glucose [Mass/Vol] 140 mg/dL 70-100 [facility] Comment on above: ADA recommended refe rence range Random Glucose Reference Range is dependent on time and content of last meal. Glucose of more than 200 mg/dL in a nonstressed, ambulatory subject supports the diagnosis of Diabetes Mellitus. Serum or plasma potassium me asurement (moles/volume)Ordered By: Art Bianchi on 05-13-2022 Potassium [Moles/Vol] 3.7 mmol/L 3.5-5.1 [facility] Serum or plasma sodium measu rement (moles/volume)Ordered By: Art Bianchi on 05-13-2022 Sodium [Moles/Vol] 138 mmol/L 136-146 [facility] Serum or plasma total biliru bin measurement (mass/volume)Ordered By: Art Bianchi on 05-13-2022 Bilirubin [Mass/Vol] 0.5 mg/dL 0.3-1.2 [facility] Serum or plasma total carbon dioxide measurement (moles/volume)Ordered By: Art Bianchi on 05-13-2022 CO2 [Moles/Vol] 19.0 mmol/L 22.0-30.0 [facility] Serum or plasma urea nitroge n measurement (mass/volume)Ordered By: Art Bianchi on 05-13-2022 Urea nitrogen [Mass/Vol] 11 mg/dL 9-23 [facility] [place] [facility] Specific gravity Auto test s trip (U) [Rel density]Ordered By: Art Bianchi on 05-13-2022 Specific gravity (U) [Rel density] 1.018 1.001-1.03 0 [facility] [place] [facility] Squamous epithelial cells de tection in urine sediment by light microscopyOrdered By: Art Bianchi on 05-13-2022 Epithelial cells.squamous LM Ql (Urine sed) 20-30 [HPF] 0-2 [facility] [place] [facility] Urine bacteria detection by automated methodOrdered By: Art Bianchi on 05-13-2022 Bacteria Auto Ql (U) 2+ None Seen [facility] Urine clarity by refractomet ry automatedOrdered By: Art Bianchi on 05-13-2022 Clarity Refractometry automated (U) Cloudy Clear [facility] [place] [facility] Urine glucose measurement by automated test strip (mass/volume)Ordered By: Art Bianchi on 05-13-2022 Glucose Auto test strip (U) [Mass/Vol] Normal mg/dL Normal [facility] [place] [facility] Urine hemoglobin detection b y automated test stripOrdered By: Art Bianchi on 05-13-2022 Hemoglobin Auto test strip Ql (U) Negative Negative [facility] [place] [facility] Urine leukocyte esterase det ection by automated test stripOrdered By: Art Bianchi on 05-13-2022 Leukocyte esterase Auto test strip Ql (U) Negative Negative [facility] [place] [facility] Urobilinogen Auto test strip (U) [Mass/Vol]Ordered By: Art Bianchi on 05-13-2022 Urobilinogen (U) [Mass/Vol] Normal mg/dL Normal [facility] [place] [facility] pH Auto test strip (U)Ordere d By: Art Bianchi on 05-13-2022 pH (U) [pH] 5.0-9.0 [facility] [place] [facility] CNPNon 10-10-2021 CNPN Telephone (OTOLMN) PILI PARIKH ([id number]) 3 F Date Time Provider Department 10/10/21 ORLANDO WOOTEN OTOLMN During your visit today, we recorded the following information about you: Rolando Wooten MD 10/10/2021 12:44 PM Signed Spoke with patient. Monospot positive. Waiting on CBC with diff - wbc 10. 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 Ordered further labs as somewhat atypical [...] [B27.80] Order(s):HEPATIC FUNCTION PNL [SQHFP] Order #: [id number] FUTURE HIV 1 2 COMBO(AG/AB),WITH REFLEX TO DIFFERENTIATION [SQHIV12] Order #: [id number] FUTURE CMV IGG/IGM TITER [[id number]] Order #: [id number] FUTURE LISSA-HENSON VCA IGM [SQEBVM] Order #: [id number] FUTURE EBV EA AB IGG [[id number]] Order #: [id number] FUTURE LISSA-HENSON VCA IGG [SQEBVG] Order #: [id number] FUTURE CMV IGG/IGM TITER [[id number]] Order #: [id number] EBV EA AB IGG [[id number]] Order #: [id number] Prescriptions as of 10/27/2021 - HYDROcodone-acetaminophen (HYCET) [...] Status:Closed by ROLANDO WOOTEN on 10/10/[address] [facility] AFB Cult and Stainon 021 AFB Cult and Stain Sp. Request/Comment: - Specimen received in sterile container. Smear Result - No acid fast bacilli seen by fluorochrome stain Culture Result - No Acid Fast Bacilli isolated after 46 days Normal [facility] Comment on above: Performed By: #### A FC #### [facility] [address] [address] Anaerobe Cultureon 1 Anaerobe Culture Sp. Request/Comment: - Specimen received in sterile container. Culture Result - Few Mixed anaerobic jori --> ABNORMAL ALERT No Bacteroides fragilis group isolated. No Clostridium perfringens isolated Critically abnormal [facility] Comment on above: Performed By: #### A NACUL #### [facility] [address] [place], [place] [address] Basic Metabolic Panlon 10-09 Anion gap [Moles/Vol] 14 mmol/L Normal 9-18 [facility] Comment on above: Result Comment: (NOT E) Reference ranges for this patient's age group have not been established. These reference ranges reflect verified or established ranges for the adult population. Interpret these ranges with caution using the clinical context and additional reference resources. Performed By: #### C BCDIF BMP, MONOLX #### [facility] [address] [place], [place] [address] Calcium [Mass/Vol] 9.4 mg/dL Normal 8.4-10.2 [facility] Comment on above: Performed By: #### C BCDIF, BMP, MONOLX #### [facility] [address] [place], [place] [address] Chloride [Moles/Vol] 99 mmol/L Normal 97-105 [facility] Comment on above: Result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 33.0 - 69.0 [facility] Comment on above: Performed By: #### C BCDF ####[facility] [place] [address] Basophils/100 WBC Auto (Bld) 0.04 x10E9/L Normal 0.00 - 0.10 [facility] Comment on above: Performed By: #### C BCDF ####[facility] [place] [address] Basophils/100 WBC Auto (Bld) 0.5 % Normal 0.0 - 1.0 [facility] Comment on above: Performed By: #### C BCDF ####[facility] [place] [address] Eosinophils Auto #/vol (Bld) 0.28 10*3/uL Normal 0.00 - 0.70 [facility] Comment on above: Performed By: #### C BCDF ####[facility] [place] [address] Eosinophils/100 WBC Auto (Bld) 3.6 % Normal 0.0 - 5.0 [facility] Comment on above: Performed By: #### C BCDF ####[facility] [place] [address] Erythrocyte distribution width Auto Ratio (RBC) 14.4 % Normal 11.5 - 14.5 [facility] Comment on above: Performed By: #### C BCDF ####[facility] [place] [address] Hematocrit Auto Volume Fraction (Bld) 37.7 % Normal 36.0 - 46.0 [facility] Comment on above: Performed By: #### C BCDF ####[facility] [place] [address] Hemoglobin mass conc (Bld) 11.5 g/dL Low 12.0 - 16.0 [facility] Comment on above: Performed By: #### C BCDF ####[facility] [place] [address] Lymphocytes Auto #/vol (Bld) 2.20 10*3/uL Normal 1.80 - 4.80 [facility] Comment on above: Performed By: #### C BCDF ####[facility] [place] [address] Lymphocytes/100 WBC Auto (Bld) 28.2 % Normal 28.0 - 48.0 [facility] Comment on above: Performed By: #### C BCDF ####[facility] [place] [address] MCHC Auto mass conc (RBC) 30.5 g/dL Low 31.0 - 37.0 [facility] Comment on above: Performed By: #### C BCDF ####[facility] [place] [address] MCV Auto Entitic volume (RBC) 82 fL Normal 78 - 102 [facility] Comment on above: Performed By: #### C BCDF ####[facility] [place] [address] Monocytes Auto #/vol (Bld) 0.53 10*3/uL Normal 0.10 - 1.00 [facility] Comment on above: Performed By: #### C BCDF ####[facility] [place] [address] Monocytes/100 WBC Auto (Bld) 6.8 % Normal 3.0 - 9.0 [facility] Comment on above: Performed By: #### C BCDF ####[facility] [place] [address] Neutrophils Auto #/vol (Bld) 4.73 10*3/uL Normal 1.20 - 7.70 [facility] Comment on above: Performed By: #### C BCDF ####[facility] [place] [address] Nucleated RBC/100 WBC Ratio (Bld) 0.0 /100 WBC Normal 0.0-0.0 [facility] Comment on above: Performed By: #### C BCDF ####[place] [id number] [place] [address] Platelets Auto #/vol (Bld) 290 10*3/uL Normal 150 - 400 [facility] Comment on above: Performed By: #### C BCDF ####[place] [id number] [place] [address] RBC Auto #/vol (Bld) 4.62 x10E12/L Normal 4.10 - 5.20 [facility] Comment on above: Performed By: #### C BCDF ####[place] [id number] [place] [address] WBC Auto #/vol (Bld) 7.8 10*3/uL Normal 4.5 - 13.5 [facility] Comment on above: Performed By: #### C BCDF ####[place] [id number] [place] [address] COAGULATION SCREENon 017 aPTT Coag time (Bld) 29 s Normal 25 - 36 [facility] Comment on above: Result Comment: THE APTT IS NO LONGER USED FOR MONITORING UNFRACTIONATED HEPARIN THERAPY. FOR MONITORING HEPARIN THERAPY, USE THE HEPARIN ASSAY. Performed By: #### V TDOH ####[facility] [place] [address] INR Coag RelTime (PPP) 1.2 {INR} High 0.9 - 1.1 [facility] Comment on above: Performed By: #### V TDOH ####[facility] [place] [address] Prothrombin time (PT) Coag time (PPP) 12.9 s High 9.8 - 12.7 [facility] Comment on above: Performed By: #### V TDOH ####[facility] [place] [address] ESR-WESTERGRENon 08-09-2017 ESR-WESTERGREN 8 mm/h Normal 0 - 13 [facility] Comment on above: Performed By: #### V TDOH ####[facility] [place] [address] GGTon 08-09-2017 GGT 20 U/L Normal 5 - 20 [facility] Comment on above: Performed By: #### G GT ####[facility] [place] [address] HEMOGLOBIN A1Con 08-09-2017 Hemoglobin A1c/Hemoglobin.total mass fraction (Bld) 5.6 % Normal [facility] Comment on above: Result Comment: Diag nosis of Diabetes-Adults Non-Diabetic: < or = 5.6% Increased risk for developing diabetes: 5.7-6.4% Diagnostic of diabetes: > or = 6.5%. Monitoring of Diabetes Age (y) Therapeutic Goal (%) Adults: >18 <7.0 Pediatrics: 13-18 <7.5 7-12 <8.0 0- 6 7.5-8.5 [place] [employer]. Diabetes Care 33(S1), Nov 2009. Performed By: #### V TDOH ####[facility] [place] [address] HEPATIC FUNCTION PANELon ALP enzyme act/vol 133 U/L Normal 52 - 239 [facility] Comment on above: Performed By: #### H EPFP ####[facility] [place] [address] ALT enzyme act/vol 41 U/L High 3 - 28 [facility] Comment on above: Result Comment: Christen ents treated with Sulfasalazine may generate falsely decreased results for ALT. Performed By: #### H EPFP ####[facility] [place] [address] AST enzyme act/vol 25 U/L High 9 - 24 [facility] Comment on above: Performed By: #### H EPFP ####[facility] [place] [address] Bilirubin mass conc 0.3 mg/dL Normal 0.0 - 0.9 [facility] Comment on above: Performed By: #### H EPFP ####[facility] [place] [address] Bilirubin.direct mass conc 0.1 mg/dL Normal 0.0 - 0.3 [facility] Comment on above: Performed By: #### H EPFP ####[facility] [place] [address] Protein mass conc 6.7 g/dL Normal 6.2 - 7.7 [facility] Comment on above: Performed By: #### H EPFP ####[facility] [place] [address] IRON + TIBCon 08-09-2017 % SATURATION 13 % Low 25 - 45 [facility] Comment on above: Performed By: #### I RONT ####[facility] [place] [address] Iron mass conc 53 ug/dL Normal 23 - 138 [facility] Comment on above: Performed By: #### I RONT ####[facility] [place] [address] TIBC 407 ug/dL Normal 240 - 445 [facility] Comment on above: Performed By: #### I RONT ####[facility] [place] [address] LIPASEon 08-09-2017 Lipase enzyme act/vol 17 U/L Normal 9 - 82 [facility] Comment on above: Result Comment: Shanda puncture immediately after or during the administration of Metamizole may lead to falsely low results. Testing should be performed immediately prior to Metamizole dosing. Performed By: #### L IPAS ####[facility] [place] [address] RENAL FUNCTION PANELon 08-09 Albumin mass conc 4.3 g/dL Normal 3.4 - 5.0 [facility] Comment on above: Performed By: #### V TDOH ####[facility] [place] [address] Performed By: #### H EPFP ####[facility] [place] [address] Anion gap 3 molar conc 13 mmol/L Normal 10 - 30 [facility] Comment on above: Performed By: #### V TDOH ####[facility] [place] [address] Calcium mass conc 9.5 mg/dL Normal 8.5 - 10.7 [facility] Comment on above: Performed By: #### V TDOH ####[facility] [place] [address] Chloride molar conc 105 mmol/L Normal 98 - 107 [facility] Comment on above: Performed By: #### V TDOH ####[facility] [place] [address] Creatinine mass conc 0.50 mg/dL Normal 0.50 - 1.00 [facility] Comment on above: Performed By: #### V TDOH ####[facility] [place] [address] Glucose mass conc 83 mg/dL Normal 74 - 99 [facility] Comment on above: Performed By: #### V TDOH ####[facility] [place] [address] HCO3 molar conc (Bld) 27 mmol/L Normal 18 - 27 [facility] Comment on above: Performed By: #### V TDOH ####[facility] [place] [address] Phosphate mass conc 4.1 mg/dL Normal 3.0 - 5.4 [facility] Comment on above: Result Comment: The performance characteristics of phosphorus testing in heparinized plasma have been validated by the individual laboratory site where testing is performed. Testing on heparinized plasma is not approved by the FDA; however, such approval is not necessary. Performed By: #### V TDOH ####[facility] [place] [address] Potassium molar conc 4.1 mmol/L Normal 3.5 - 5.3 [facility] Comment on above: Performed By: #### V TDOH ####[facility] [place] [address] Sodium molar conc 141 mmol/L Normal 136 - 145 [facility] Comment on above: Performed By: #### V TDOH ####[facility] [place] [address] Urea nitrogen mass conc 11 mg/dL Normal 6 - 23 [facility] Comment on above: Performed By: #### V TDOH ####[facility] [place] [address] THYROXINE,FREEon 08-09-2017 THYROXINE,FREE 1.08 ng/dL Normal 0.78 - 1.48 [facility] Comment on above: Result Comment: Thyr oxine Free testing is performed using different testing methodology at [facility] than [facility]. Direct result comparisons should only be made within the same method.. Patients receiving more than 5 mg/day of biotin may have interference in test results. A sample should be taken no sooner than eight hours after previous dose. Contact [phone] for additional information. Performed By: #### T 4FRE ####[facility] [place] [address] TSHon 08-09-2017 Thyrotropin Qn 1.71 m[IU]/L Normal 0.44 - 3.98 [facility] Comment on above: Result Comment: TSH testing is performed using different testing methodology at [facility] than at other [facility]. Direct result comparisons should only be made within the same method.. Patients receiving more than 5 mg/day of biotin may have interference in test results. A sample should be taken no sooner than eight hours after previous dose. Contact [phone] for additional information. Performed By: #### T SH2 ####[facility] [place] [address] VITAMIN D, 25-HYDROXYon 07-29 VITAMIN D, 25-HYDROXY 28 ng/mL Abnormal [facility] Comment on above: Result Comment: .DEF ICIENCY: < 20 NG/MLINSUFFICIENCY: 20-29 NG/MLOPTIMUM LEVEL: 30-80 NG/MLPOSSIBLE TOXICITY: > 80 NG/MLTHIS ASSAY ACCURATELY QUANTIFIES THE SUM OFVITAMIN D3, 25-HYDROXY AND VIT D2,25-HYDROXY. Performed By: #### V TDOH ####[facility] [place] [address] Vital Signs Date Time Vital Sign Value Performing Clinician Facility 08-03-2024 23:10-0400 Diastolic blood pressure 68 mm[Hg] [facility] Work Phone: [facility] 08-03-2024 23:10-0400 Heart rate 95 /min [facility] Work Phone: [facility] 08-03-2024 23:10-0400 Respiratory rate 18 /min [facility] Work Phone: [facility] 08-03-2024 23:10-0400 SaO2% (BldA) [Mass fraction] 99 % [facility] Work Phone: [facility] 08-03-2024 23:10-0400 Systolic blood pressure 115 mm[Hg] [facility] Work Phone: [facility] 08-03-2024 20:35-0400 Body height 157.48 cm [facility] Work Phone: [facility] 08-03-2024 20:35-0400 Body temperature 99.1 [degF] [facility] Work Phone: [facility] 08-03-2024 20:35-0400 Body weight 90.71 kg [facility] Work Phone: [facility] 07-30-2024 22:55-0400 Diastolic blood pressure 72 mm[Hg] Cresencio Abel [facility] 07-30-2024 22:55-0400 Heart rate 50 /min Cresencio Colten [facility] 07-30-2024 22:55-0400 Mean blood pressure 83 mm[Hg] Cresencio Colten [facility] 07-30-2024 22:55-0400 Respiratory rate 16 /min Cresencio Colten [facility] 07-30-2024 22:55-0400 SaO2% (BldA) [Mass fraction] 98 % Cresencio Colten [facility] 07-30-2024 22:55-0400 Systolic blood pressure 104 mm[Hg] Cresencio Colten [facility] 07-30-2024 19:28-0400 Body temperature 98.06 [degF] Cresencio Colten [facility] 07-30-2024 19:28-0400 Diastolic blood pressure 76 mm[Hg] Cresencio Colten [facility] 07-30-2024 19:28-0400 Heart rate 55 /min Cresencio Colten [facility] 07-30-2024 19:28-0400 Respiratory rate 16 /min Cresencio Colten [facility] 07-30-2024 19:28-0400 SaO2% (BldA) [Mass fraction] 97 % Cresencio Colten [facility] 07-30-2024 19:28-0400 Systolic blood pressure 118 mm[Hg] Cresencio Colten [facility] 03-19-2024 00:10-0400 Diastolic blood pressure 90 mm[Hg] Services [facility] Work Phone: [facility] 03-19-2024 00:10-0400 Heart rate 110 /min Services [facility] Work Phone: [facility] 03-19-2024 00:10-0400 Respiratory rate 18 /min Services [facility] [email or web address] Work Phone: [facility] 03-19-2024 00:10-0400 SaO2% (BldA) [Mass fraction] 100 % [facility] Work Phone: [facility] 03-19-2024 00:10-0400 Systolic blood pressure 144 mm[Hg] Services [facility] [email or web address] Work Phone: [facility] 03-18-2024 22:03-0400 Body height 160.02 cm [facility] [email or web address] Work Phone: [facility] 03-18-2024 22:03-0400 Body temperature 98.3 [degF] [facility] [email or web address] Work Phone: [facility] 03-18-2024 22:03-0400 Body weight 92.2 kg [facility] [email or web address] Work Phone: [facility] 03-15-2024 13:43-0400 Diastolic blood pressure 89 mm[Hg] [facility] 03-15-2024 13:43-0400 Heart rate 51 /min [facility] 03-15-2024 13:43-0400 Mean blood pressure 107 mm[Hg] [facility] 03-15-2024 13:43-0400 Respiratory rate 16 /min [facility] 03-15-2024 13:43-0400 SaO2% (BldA) [Mass fraction] 100 % [facility] 03-15-2024 13:43-0400 Systolic blood pressure 144 mm[Hg] [facility] 03-15-2024 12:01-0400 Diastolic blood pressure 87 mm[Hg] [facility] 03-15-2024 12:01-0400 Heart rate 52 /min [facility] 03-15-2024 12:01-0400 Mean blood pressure 107 mm[Hg] [facility] 03-15-2024 12:01-0400 SaO2% (BldA) [Mass fraction] 100 % [facility] 03-15-2024 12:01-0400 Systolic blood pressure 148 mm[Hg] [facility] 03-15-2024 10:35-0400 Body temperature 97.52 [degF] [facility] 03-15-2024 10:35-0400 Diastolic blood pressure 86 mm[Hg] [facility] 03-15-2024 10:35-0400 Heart rate 60 /min [facility] 03-15-2024 10:35-0400 Respiratory rate 18 /min [facility] 03-15-2024 10:35-0400 SaO2% (BldA) [Mass fraction] 98 % [facility] 03-15-2024 10:35-0400 Systolic blood pressure 143 mm[Hg] [facility] 03-13-2024 22:00-0400 Diastolic blood pressure 105 mm[Hg] Jacinto Roman [facility] 03-13-2024 22:00-0400 Heart rate 53 /min Jacinto Roman [facility] 03-13-2024 22:00-0400 Mean blood pressure 117 mm[Hg] Jacinto Ernandeze [facility] 03-13-2024 22:00-0400 SaO2% (BldA) [Mass fraction] 100 % Jacinto Ernandeze [facility] 03-13-2024 22:00-0400 Systolic blood pressure 140 mm[Hg] Jacinto Jessie [facility] 03-13-2024 21:00-0400 Diastolic blood pressure 106 mm[Hg] Jacinto Jessie [facility] 03-13-2024 21:00-0400 Heart rate 93 /min Jacinto Ernandeze [facility] 03-13-2024 21:00-0400 Mean blood pressure 119 mm[Hg] Jacinto Jessie [facility] 03-13-2024 21:00-0400 Respiratory rate 21 /min Jacinto Ernandeze [facility] 03-13-2024 21:00-0400 SaO2% (BldA) [Mass fraction] 98 % Jacinto Ernandeze [facility] 03-13-2024 21:00-0400 Systolic blood pressure 144 mm[Hg] Jacinto Ernandeze [facility] 03-13-2024 20:00-0400 Diastolic blood pressure 103 mm[Hg] Jacinto Ernandeze [facility] 03-13-2024 20:00-0400 Heart rate 50 /min Jacinto Ernandeze [facility] 03-13-2024 20:00-0400 Mean blood pressure 120 mm[Hg] Jacinto Ernandeze [facility] 03-13-2024 20:00-0400 Systolic blood pressure 153 mm[Hg] Jacinto Ernandeze [facility] 03-13-2024 19:38-0400 Respiratory rate 14 /min Jacinto Jessie [facility] 03-13-2024 18:36-0400 Respiratory rate 18 /min Jacinto Jessie [facility] 03-13-2024 17:51-0400 Body temperature 98.24 [degF] Jacinto Jessie [facility] 03-13-2024 17:36-0400 Body temperature 98.24 [degF] Jacinto Jessie [facility] 03-13-2024 17:36-0400 Heart rate 61 /min Jacinto Roman [facility] 03-13-2024 17:36-0400 Respiratory rate 18 /min Jacinto Roman [facility] 07-31-2023 18:09-0400 Body height 157.48 cm [facility] Work Phone: [facility] 07-31-2023 18:09-0400 Body temperature 98.6 [degF] [facility] Work Phone: [facility] 07-31-2023 18:09-0400 Body weight 84 kg [facility] Work Phone: [facility] 07-31-2023 18:09-0400 Diastolic blood pressure 106 mm[Hg] [facility] Work Phone: [facility] 07-31-2023 18:09-0400 Heart rate 87 /min [facility] Work Phone: [facility] 07-31-2023 18:09-0400 Respiratory rate 18 /min [facility] Work Phone: [facility] 07-31-2023 18:09-0400 SaO2% (BldA) [Mass fraction] 98 % [facility] Work Phone: [facility] 07-31-2023 18:09-0400 Systolic blood pressure 150 mm[Hg] [facility] Work Phone: [facility] 05-25-2023 13:11-0400 Diastolic blood pressure 96 mm[Hg] [facility] Work Phone: [facility] 05-25-2023 13:11-0400 Heart rate 60 /min [facility] Work Phone: [facility] 05-25-2023 13:11-0400 Respiratory rate 16 /min [facility] Work Phone: [facility] 05-25-2023 13:11-0400 SaO2% (BldA) [Mass fraction] 97 % [facility] Work Phone: [facility] 05-25-2023 13:11-0400 Systolic blood pressure 160 mm[Hg] Services [facility] [email or web address] Work Phone: [facility] 05-25-2023 11:56-0400 Inhaled oxygen flow rate 6 L/min [facility] [email or web address] Work Phone: [facility] 05-25-2023 11:54-0400 Body temperature 97.2 [degF] Services [facility] [email or web address] Work Phone: [facility] 05-25-2023 09:39-0400 Body height 160.02 cm [facility] Work Phone: [facility] 05-25-2023 09:39-0400 Body mass index (BMI) [Percentile] Per age and sex 96.6 % [facility] Work Phone: [facility] 05-25-2023 09:39-0400 Body mass index (BMI) [Ratio] 33.6 kg/m2 [facility] [email or web address] Work Phone: [facility] 05-25-2023 09:39-0400 Body weight 86.18 kg [facility] Work Phone: [facility] 05-23-2023 08:00-0400 Body height 157.48 cm Colten Miller Other [employer] [facility] [employer] Other 05-23-2023 08:00-0400 Body mass index (BMI) [Ratio] 34.75 kg/m2 Colten Olexa Other [employer] Other 05-23-2023 08:00-0400 Body weight 86.18 kg Colten Olexa Other [employer] Other 01-07-2023 14:08-0500 Body height 157.48 cm [facility] Work Phone: [facility] 01-07-2023 12:34-0500 Body temperature 98.1 [degF] Services [facility] Work Phone: [facility] 01-07-2023 12:34-0500 Diastolic blood pressure 86 mm[Hg] Services [facility] Work Phone: [facility] 01-07-2023 12:34-0500 Heart rate 75 /min [facility] Work Phone: [facility] 01-07-2023 12:34-0500 SaO2% (BldA) [Mass fraction] 100 % Services [facility] Work Phone: [facility] 01-07-2023 12:34-0500 Systolic blood pressure 147 mm[Hg] Services [facility] Work Phone: [facility] 01-07-2023 11:57-0500 Respiratory rate 18 /min Services [facility] Work Phone: [facility] 01-07-2023 06:00-0500 Body weight 78.2 kg Services [facility] Work Phone: [facility] 01-06-2023 18:29-0500 Diastolic blood pressure 82 mm[Hg] Services [facility] Work Phone: [facility] 01-06-2023 18:29-0500 Heart rate 64 /min Services [facility] Work Phone: [facility] 01-06-2023 18:29-0500 Respiratory rate 16 /min Services [facility] Work Phone: [facility] 01-06-2023 18:29-0500 SaO2% (BldA) [Mass fraction] 98 % Services [facility] Work Phone: [facility] 01-06-2023 18:29-0500 Systolic blood pressure 139 mm[Hg] Services [facility] Work Phone: [facility] 01-06-2023 11:12-0500 Body height 157.48 cm [facility] Work Phone: [facility] 01-06-2023 11:12-0500 Body temperature 98 [degF] Services [facility] Work Phone: [facility] 01-06-2023 11:12-0500 Body weight 77.11 kg Services [facility] Work Phone: [facility] 01-02-2023 04:00-0500 Heart rate 62 /min [facility] Work Phone: [facility] 01-02-2023 04:00-0500 Respiratory rate 18 /min Services [facility] Work Phone: [facility] 01-02-2023 04:00-0500 SaO2% (BldA) [Mass fraction] 100 % Services [facility] Work Phone: [facility] 01-02-2023 02:37-0500 Diastolic blood pressure 85 mm[Hg] Services [facility] Work Phone: [facility] 01-02-2023 02:37-0500 Systolic blood pressure 155 mm[Hg] Services [facility] Work Phone: [facility] 01-02-2023 01:14-0500 Body height 157.48 cm Services [facility] Work Phone: [facility] 01-02-2023 01:14-0500 Body temperature 98 [degF] Services [facility] Work Phone: [facility] 01-02-2023 01:14-0500 Body weight 77.11 kg Services [facility] Work Phone: [facility] 12-31-2022 12:11-0500 Heart rate 70 /min Services [facility] Work Phone: [facility] 12-31-2022 12:08-0500 Body height 157.48 cm Services [facility] Work Phone: [facility] 12-31-2022 12:08-0500 Body temperature 97.7 [degF] Services [facility] Work Phone: [facility] 12-31-2022 12:08-0500 Body weight 79 kg Services [facility] Work Phone: [facility] 12-31-2022 12:08-0500 Diastolic blood pressure 87 mm[Hg] Services [facility] Work Phone: [facility] 12-31-2022 12:08-0500 Respiratory rate 18 /min Services [facility] Work Phone: [facility] 12-31-2022 12:08-0500 SaO2% (BldA) [Mass fraction] 99 % Services [facility] Work Phone: [facility] 12-31-2022 12:08-0500 Systolic blood pressure 134 mm[Hg] Services [facility] Work Phone: [facility] 11-09-2022 15:15-0500 Body height 157.48 cm Services [facility] Work Phone: [facility] 11-09-2022 15:15-0500 Body temperature 98.4 [degF] Services [facility] Work Phone: [facility] 11-09-2022 15:15-0500 Body weight 81.64 kg Services [facility] Work Phone: [facility] 11-09-2022 15:15-0500 Diastolic blood pressure 90 mm[Hg] Services [facility] Work Phone: [facility] 11-09-2022 15:15-0500 Heart rate 95 /min Services [facility] Work Phone: [facility] 11-09-2022 15:15-0500 Respiratory rate 16 /min Services [facility] Work Phone: [facility] 11-09-2022 15:15-0500 SaO2% (BldA) [Mass fraction] 100 % Services [facility] Work Phone: [facility] 11-09-2022 15:15-0500 Systolic blood pressure 140 mm[Hg] [facility] Work Phone: [facility] 11-07-2022 13:40-0500 Diastolic blood pressure 85 mm[Hg] [facility] Work Phone: [facility] 11-07-2022 13:40-0500 Heart rate 68 /min [facility] Work Phone: [facility] 11-07-2022 13:40-0500 Respiratory rate 16 /min Services [facility] Work Phone: [facility] 11-07-2022 13:40-0500 SaO2% (BldA) [Mass fraction] 100 % Services [facility] [email or web address] [facility] Work Phone: [facility] 11-07-2022 13:40-0500 Systolic blood pressure 119 mm[Hg] Services [facility] Work Phone: [facility] 11-07-2022 11:05-0500 Body temperature 98.2 [degF] Services [facility] Work Phone: [facility] 11-07-2022 11:04-0500 Body height 158.75 cm Services [facility] Work Phone: [facility] 11-07-2022 11:04-0500 Body weight 77 kg Services [facility] Work Phone: [facility] 11-02-2022 09:53-0500 Diastolic blood pressure 89 mm[Hg] Services [facility] Work Phone: [facility] 11-02-2022 09:53-0500 Heart rate 50 /min Services [facility] Work Phone: [facility] 11-02-2022 09:53-0500 Respiratory rate 18 /min Services [facility] [email or web address] [facility] Work Phone: [facility] 11-02-2022 09:53-0500 SaO2% (BldA) [Mass fraction] 98 % Services [facility] Work Phone: [facility] 11-02-2022 09:53-0500 Systolic blood pressure 156 mm[Hg] Services [facility] Work Phone: [facility] 11-02-2022 03:00-0500 Body height 157.48 cm Services [facility] Work Phone: [facility] 11-02-2022 03:00-0500 Body temperature 98.4 [degF] Services [facility] Work Phone: [facility] 11-02-2022 03:00-0500 Body weight 78 kg Services [facility] Work Phone: [facility] 10-31-2022 10:05-0500 Diastolic blood pressure 85 mm[Hg] Services [facility] Work Phone: [facility] 10-31-2022 10:05-0500 Heart rate 59 /min Services [facility] Work Phone: [facility] 10-31-2022 10:05-0500 Respiratory rate 18 /min Services [facility] Work Phone: [facility] 10-31-2022 10:05-0500 SaO2% (BldA) [Mass fraction] 98 % Services [facility] Work Phone: [facility] 10-31-2022 10:05-0500 Systolic blood pressure 137 mm[Hg] Services [facility] Work Phone: [facility] 10-31-2022 08:50-0500 Body height 157.48 cm Services [facility] Work Phone: [facility] 10-31-2022 08:50-0500 Body temperature 98.2 [degF] Services [facility] Work Phone: [facility] 10-31-2022 08:50-0500 Body weight 83.91 kg Services [facility] Work Phone: [facility] 10-29-2022 12:01-0500 Body height 157.48 cm Services [facility] Work Phone: [facility] 10-29-2022 12:01-0500 Body temperature 97.8 [degF] [facility] Work Phone: [facility] 10-29-2022 12:01-0500 Body weight 81 kg Services [facility] Work Phone: [facility] 10-29-2022 12:01-0500 Diastolic blood pressure 84 mm[Hg] Services [facility] Work Phone: [facility] 10-29-2022 12:01-0500 Heart rate 60 /min Services [facility] Work Phone: [facility] 10-29-2022 12:01-0500 Respiratory rate 18 /min Services [facility] Work Phone: [facility] 10-29-2022 12:01-0500 SaO2% (BldA) [Mass fraction] 99 % Services [facility] Work Phone: [facility] 10-29-2022 12:01-0500 Systolic blood pressure 109 mm[Hg] Services [facility] Work Phone: [facility] 08-22-2022 12:00-0400 Body temperature 98 [degF] Services [facility] Work Phone: [facility] 08-22-2022 12:00-0400 Diastolic blood pressure 78 mm[Hg] Services [facility] Work Phone: [facility] 08-22-2022 12:00-0400 Heart rate 80 /min Services [facility] Work Phone: [facility] 08-22-2022 12:00-0400 Respiratory rate 18 /min Services [facility] Work Phone: [facility] 08-22-2022 12:00-0400 SaO2% (BldA) [Mass fraction] 95 % Services [facility] Work Phone: [facility] 08-22-2022 12:00-0400 Systolic blood pressure 121 mm[Hg] Services [facility] Work Phone: [facility] 08-22-2022 05:50-0400 Body weight 77.5 kg Services [facility] Work Phone: [facility] 08-21-2022 11:27-0400 Body height 157.48 cm Services [facility] Work Phone: [facility] 08-20-2022 16:34-0400 Diastolic blood pressure 90 mm[Hg] Services [facility] Work Phone: [facility] 08-20-2022 16:34-0400 Heart rate 68 /min Services [facility] Work Phone: [facility] 08-20-2022 16:34-0400 Respiratory rate 20 /min Services [facility] Work Phone: [facility] 08-20-2022 16:34-0400 SaO2% (BldA) [Mass fraction] 96 % Services [facility] Work Phone: [facility] 08-20-2022 16:34-0400 Systolic blood pressure 142 mm[Hg] Services [facility] Work Phone: [facility] 08-20-2022 11:58-0400 Body height 157.48 cm Services [facility] Work Phone: [facility] 08-20-2022 11:58-0400 Body temperature 97.9 [degF] Services [facility] Work Phone: [facility] 08-20-2022 11:58-0400 Body weight 79.37 kg Services [facility] Work Phone: [facility] 08-20-2022 01:00-0400 Body temperature 97.9 [degF] Services [facility] Work Phone: [facility] 08-20-2022 01:00-0400 Diastolic blood pressure 72 mm[Hg] Services [facility] Work Phone: [facility] 08-20-2022 01:00-0400 Heart rate 53 /min Services [facility] Work Phone: [facility] 08-20-2022 01:00-0400 Respiratory rate 16 /min Services [facility] Work Phone: [facility] 08-20-2022 01:00-0400 SaO2% (BldA) [Mass fraction] 97 % Services [facility] Work Phone: [facility] 08-20-2022 01:00-0400 Systolic blood pressure 131 mm[Hg] Services [facility] Work Phone: [facility] 08-19-2022 18:57-0400 Body height 157.48 cm Services [facility] Work Phone: [facility] 08-19-2022 18:57-0400 Body weight 79.37 kg Services [facility] Work Phone: [facility] 08-19-2022 14:00-0400 Diastolic blood pressure 79 mm[Hg] Services [facility] Work Phone: [facility] 08-19-2022 14:00-0400 Heart rate 67 /min Services [facility] Work Phone: [facility] 08-19-2022 14:00-0400 Respiratory rate 20 /min Services [facility] Work Phone: [facility] 08-19-2022 14:00-0400 SaO2% (BldA) [Mass fraction] 99 % Services [facility] Work Phone: [facility] 08-19-2022 14:00-0400 Systolic blood pressure 139 mm[Hg] Services [facility] Work Phone: [facility] 08-19-2022 00:40-0400 Body height 157.48 cm Services [facility] Work Phone: [facility] 08-19-2022 00:40-0400 Body temperature 98.8 [degF] Services [facility] Work Phone: [facility] 08-19-2022 00:40-0400 Body weight 77.11 kg Services [facility] Work Phone: [facility] 08-18-2022 15:28-0400 Body temperature 97.8 [degF] Services [facility] Work Phone: [facility] 08-18-2022 15:28-0400 Diastolic blood pressure 90 mm[Hg] Services [facility] Work Phone: [facility] 08-18-2022 15:28-0400 Heart rate 54 /min Services [facility] Work Phone: [facility] 08-18-2022 15:28-0400 Respiratory rate 20 /min Services [facility] Work Phone: [facility] 08-18-2022 15:28-0400 SaO2% (BldA) [Mass fraction] 100 % Services [facility] Work Phone: [facility] 08-18-2022 15:28-0400 Systolic blood pressure 135 mm[Hg] Services [facility] Work Phone: [facility] 08-18-2022 12:26-0400 Body height 157.48 cm Services [facility] Work Phone: [facility] 08-18-2022 12:26-0400 Body weight 77.11 kg Services [facility] Work Phone: [facility] 06-09-2022 10:25-0400 Diastolic blood pressure 51 mm[Hg] Services [facility] Work Phone: [facility] 06-09-2022 10:25-0400 Heart rate 83 /min Services [facility] Work Phone: [facility] 06-09-2022 10:25-0400 Respiratory rate 20 /min Services [facility] Work Phone: [facility] 06-09-2022 10:25-0400 SaO2% (BldA) [Mass fraction] 98 % Services [facility] Work Phone: [facility] 06-09-2022 10:25-0400 Systolic blood pressure 92 mm[Hg] Services [facility] Work Phone: [facility] 06-09-2022 08:46-0400 Body height 157.48 cm Services [facility] Work Phone: [facility] 06-09-2022 08:46-0400 Body mass index (BMI) [Percentile] Per age and sex 96.2 % Services [facility] Work Phone: [facility] 06-09-2022 08:46-0400 Body mass index (BMI) [Ratio] 32 kg/m2 Services [facility] Work Phone: [facility] 06-09-2022 08:46-0400 Body temperature 97.4 [degF] Services [facility] Work Phone: [facility] 06-09-2022 08:46-0400 Body weight 79.37 kg Services [facility] Work Phone: [facility] 05-16-2022 13:52-0400 Diastolic blood pressure 96 mm[Hg] Services [facility] Work Phone: [facility] 05-16-2022 13:52-0400 Heart rate 66 /min Services [facility] Work Phone: [facility] 05-16-2022 13:52-0400 Respiratory rate 18 /min Services [facility] Work Phone: [facility] 05-16-2022 13:52-0400 SaO2% (BldA) [Mass fraction] 100 % Services [facility] Work Phone: [facility] 05-16-2022 13:52-0400 Systolic blood pressure 138 mm[Hg] Services [facility] Work Phone: [facility] 05-16-2022 11:54-0400 Body height 157.48 cm Services [employer] Work Phone: [facility] 05-16-2022 11:54-0400 Body mass index (BMI) [Percentile] Per age and sex 95.5 % Services [facility] [employer] Work Phone: [facility] 05-16-2022 11:54-0400 Body mass index (BMI) [Ratio] 31.1 kg/m2 Services [employer] Work Phone: [facility] 05-16-2022 11:54-0400 Body temperature 98.4 [degF] Services [facility] [employer] Work Phone: [facility] 05-16-2022 11:54-0400 Body weight 77.11 kg Services [facility] [employer] Work Phone: [facility] 05-15-2022 15:30-0400 Diastolic blood pressure 82 mm[Hg] Services [facility] [employer] Work Phone: [facility] 05-15-2022 15:30-0400 Heart rate 52 /min Services [employer] Work Phone: [facility] 05-15-2022 15:30-0400 Respiratory rate 14 /min Services [employer] Work Phone: [facility] 05-15-2022 15:30-0400 SaO2% (BldA) [Mass fraction] 99 % Services [employer] Work Phone: [facility] 05-15-2022 15:30-0400 Systolic blood pressure 134 mm[Hg] Services [employer] Work Phone: [facility] 05-15-2022 12:28-0400 Body height 157.48 cm Services [employer] Work Phone: [facility] 05-15-2022 12:28-0400 Body mass index (BMI) [Percentile] Per age and sex 95.5 % Services [employer] Work Phone: [facility] 05-15-2022 12:28-0400 Body mass index (BMI) [Ratio] 31 kg/m2 Services [facility] [employer] Work Phone: [facility] 05-15-2022 12:28-0400 Body temperature 98.1 [degF] Services [employer] Work Phone: [facility] 05-15-2022 12:28-0400 Body weight 77 kg Services [facility] Work Phone: [facility] 05-14-2022 22:56-0400 Body temperature 98.1 [degF] Services [facility] Work Phone: [facility] 05-14-2022 22:56-0400 Diastolic blood pressure 74 mm[Hg] Services [facility] Work Phone: [facility] 05-14-2022 22:56-0400 Heart rate 18 /min Services [facility] Work Phone: [facility] 05-14-2022 22:56-0400 Respiratory rate 18 /min Services [facility] Work Phone: [facility] 05-14-2022 22:56-0400 SaO2% (BldA) [Mass fraction] 94 % Services [facility] Work Phone: [facility] 05-14-2022 22:56-0400 Systolic blood pressure 137 mm[Hg] Services [facility] Work Phone: [facility] 05-14-2022 02:18-0400 Body height 157.48 cm Services [facility] Work Phone: [facility] 05-14-2022 02:18-0400 Body mass index (BMI) [Percentile] Per age and sex 95.5 % Services [facility] Work Phone: [facility] 05-14-2022 02:18-0400 Body mass index (BMI) [Ratio] 31.1 kg/m2 Services [facility] Work Phone: [facility] 05-14-2022 02:18-0400 Body temperature 97.9 [degF] Services [facility] [email or web address] Work Phone: [facility] 05-14-2022 02:18-0400 Body weight 77.11 kg Services [facility] Work Phone: [facility] 05-14-2022 02:18-0400 Diastolic blood pressure 65 mm[Hg] Services [facility] Work Phone: [facility] 05-14-2022 02:18-0400 Heart rate 54 /min Services [facility] Work Phone: [facility] 05-14-2022 02:18-0400 Respiratory rate 18 /min Services [facility] Work Phone: [facility] 05-14-2022 02:18-0400 SaO2% (BldA) [Mass fraction] 98 % Services [facility] Work Phone: [facility] 05-14-2022 02:18-0400 Systolic blood pressure 133 mm[Hg] Services [facility] Work Phone: [facility] 05-13-2022 12:09-0400 Heart rate 72 /min Services [facility] Work Phone: [facility] 05-13-2022 12:09-0400 Respiratory rate 18 /min Services [facility] Work Phone: [facility] 05-13-2022 12:09-0400 SaO2% (BldA) [Mass fraction] 98 % Services [facility] Work Phone: [facility] 05-13-2022 10:32-0400 Body height 156.21 cm Services [facility] Work Phone: [facility] 05-13-2022 10:32-0400 Body mass index (BMI) [Percentile] Per age and sex 95.9 % Services [facility] Work Phone: [facility] 05-13-2022 10:32-0400 Body mass index (BMI) [Ratio] 31.6 kg/m2 Services [facility] Work Phone: [facility] 05-13-2022 10:32-0400 Body temperature 98.1 [degF] Services [employer] Work Phone: [facility] 05-13-2022 10:32-0400 Body weight 77.11 kg Services [facility] Work Phone: [facility] 05-13-2022 10:32-0400 Diastolic blood pressure 87 mm[Hg] Services [facility] Work Phone: [facility] 05-13-2022 10:32-0400 Systolic blood pressure 145 mm[Hg] Services [facility] Work Phone: [facility] Encounters Encounter Date Encounter Type Care Provider Facility Start: 10-28-2024 End: 10-29-2024 Emergency department patient visit Rd Brown Facility:[facility] Start: 08-03-2024 End: 08-04-2024 Emergency department patient visit Services [facility] [email or web address] Work Phone: [facility] Work Phone: Start: 08-01-2024 End: 08-01-2024 Emergency department patient visit MODESTA ARCHIBALD Facility:[facility] Start: 07-30-2024 End: 07-30-2024 Emergency department patient visit Cresencio Abel Facility:[facility] Start: 03-18-2024 End: 03-19-2024 Emergency department patient visit Services [employer] Work Phone: [facility] Work Phone: Start: 03-15-2024 End: 03-15-2024 Emergency department patient visit Beliaaries Carbone [facility] Start: 03-13-2024 End: 03-13-2024 Emergency department patient visit Jacinto Jessie [facility] Start: 07-31-2023 End: 07-31-2023 Emergency department patient visit Services [facility] Work Phone: [facility] Work Phone: Start: 07-14-2023 End: 07-14-2023 ambulatory Services [facility] Work Phone: [facility] Work Phone: Start: 07-14-2023 End: 07-14-2023 Patient encounter procedure Services [facility] Work Phone: [facility] Start: 06-16-2023 End: 06-16-2023 ambulatory Services [facility] Work Phone: [facility] Work Phone: Start: 06-16-2023 End: 06-16-2023 Patient encounter procedure Services [facility] [email or web address] Work Phone: [facility] Start: 06-02-2023 Postop follow up vis it related to original px Colten Olexa [facility] Start: 06-02-2023 End: 06-02-2023 ambulatory Services [facility] Work Phone: [facility] Other Start: 06-02-2023 End: 06-02-2023 Patient encounter procedure Services [facility] [email or web address] Work Phone: [facility] Start: 05-25-2023 End: 05-25-2023 Admission to same day surgery center Services [facility] Work Phone: [facility] [place] Start: 05-25-2023 End: 05-25-2023 ambulatory Services [facility] [email or web address] Work Phone: [facility] Work Phone: Start: 05-24-2023 End: 05-24-2023 ambulatory Colten Olexa Other [facility] Other Start: 05-24-2023 Telephone encounter Colten Wesleyxa [facility] Start: 05-23-2023 End: 05-23-2023 ambulatory Colten Olexa Other [facility] Other Start: 05-23-2023 Encounter for other preprocedural examination Colten Wesleyxa [facility] Start: 05-23-2023 Office outpatient ne w 45 minutes Colten Olexa [facility] Start: 03-15-2023 End: 03-15-2023 Departed Referred Services [facility] Work Phone: [facility] Start: 01-26-2023 End: 01-26-[address] DOCTOR MISC Facility:[facility] Start: 01-06-2023 End: 01-07-2023 Evaluation and management of inpatient Services [facility] Work Phone: [facility] Work Phone: Start: 01-06-2023 observation encounter Services [facility] Work Phone: [facility] Work Phone: Start: 01-06-2023 End: 01-07-2023 Services [facility] Work Phone: [facility] [place] [facility] Work Phone: Start: 01-02-2023 End: 01-02-2023 Services [facility] Work Phone: [facility] Work Phone: Start: 01-01-2023 End: 01-01-2023 ambulatory IRWIN DIAB . Facility:[facility] Start: 12-31-2022 End: 12-31-2022 Emergency department patient visit Services [facility] Work Phone: [facility] Work Phone: Start: 12-31-2022 End: 12-31-2022 Services [facility] Work Phone: [facility] Work Phone: Start: 11-09-2022 End: 11-09-2022 Emergency department patient visit Services [facility] Work Phone: [facility] Work Phone: Start: 11-09-2022 End: 11-09-2022 Services [facility] Work Phone: [facility] Start: 11-07-2022 End: 11-07-2022 Emergency department patient visit Services [facility] Work Phone: [facility] Work Phone: Start: 11-07-2022 End: 11-07-2022 Services [facility] Work Phone: [facility] Start: 11-02-2022 End: 11-02-2022 Emergency department patient visit [facility] Work Phone: [facility] Work Phone: Start: 11-02-2022 End: 11-02-2022 Services [facility] Work Phone: [facility] Start: 10-31-2022 End: 10-31-2022 Emergency department patient visit [facility] Work Phone: [facility] Work Phone: Start: 10-31-2022 End: 10-31-2022 Services [facility] Work Phone: [facility] Start: 10-29-2022 End: 10-29-2022 Emergency department patient visit [facility] Work Phone: [facility] Start: 10-29-2022 End: 10-29-2022 Services [facility] Work Phone: [facility] Start: 08-27-2022 End: 08-27-2022 Departed Referred Services [facility] Work Phone: [facility] Start: 08-27-2022 End: 08-27-2022 Services [facility] Work Phone: [facility] Start: 08-20-2022 End: 08-22-2022 Evaluation and management of inpatient Services [facility] Work Phone: [facility] [place] [facility] Start: 08-20-2022 End: 08-22-2022 Services [facility] Work Phone: [facility] [place] [facility] Start: 08-19-2022 End: 08-20-2022 Emergency department patient visit Services [facility] Work Phone: [facility] Start: 08-19-2022 End: 08-20-2022 Services [facility] Work Phone: [facility] Start: 08-19-2022 End: 08-19-2022 Emergency department patient visit Services [facility] Work Phone: [facility] Start: 08-19-2022 End: 08-19-2022 Services [facility] Work Phone: [facility] Start: 08-18-2022 End: 08-18-2022 Emergency department patient visit Services [facility] Work Phone: [facility] Start: 08-18-2022 End: 08-18-2022 Services [facility] Work Phone: [facility] Start: 06-25-2022 End: 06-25-2022 Departed Referred Services [facility] [email or web address] Work Phone: [facility] Start: 06-09-2022 End: 06-09-2022 Admission to same day surgery center Services [facility] Work Phone: [facility] Start: 06-07-2022 End: 06-07-2022 Patient encounter procedure Services [facility] [email or web address] Work Phone: [facility]Surgical [facility] Start: 05-26-2022 End: 05-26-2022 Departed Referred Services [facility] Work Phone: [facility] Start: 05-16-2022 ambulatory Luana Mak RN NURSE PROFESSOR OF [employer]LY [employer] EDUCATION Comment on above: Abdominal Pain Start: 05-16-2022 End: 05-16-2022 Emergency department patient visit [facility] Work Phone: [facility] Start: 05-15-2022 End: 05-15-2022 Emergency department patient visit [facility] Work Phone: [facility] Start: 05-14-2022 End: 05-14-2022 Emergency department patient visit [facility] Work Phone: [facility] Start: 05-14-2022 End: 05-14-2022 Emergency department patient visit Services [facility] Work Phone: [facility] Start: 05-13-2022 End: 05-13-2022 Emergency department patient visit [facility] Work Phone: [facility] Start: 06-23-2018 Evaluation and manag ement of inpatient Radha Unger Facility:[facility] Start: 06-16-2018 Patient encounter DALI B SPLJANETKI Fa cility:[id number] Start: 06-05-2018 Patient encounter Mere Puenteswell Facility:[id number] Start: 04-14-2018 Patient encounter DALI B SPLJANETKI Fa cility:[id number] Start: 02-17-2018 Patient encounter Meremilo Puenteswell Facility:[id number] Start: 02-10-2018 Patient encounter DALI B SPLJANETKI Fa cility:[id number] Start: 12-16-2017 Patient encounter DALI B SPLJANETKI Fa cility:[id number] Start: 10-14-2017 Patient encounter DALI B SPLJANETKI Fa cility:[id number] Start: 09-28-2017 Patient encounter Mere Puenteswell Facility:[id number] Start: 08-25-2017 Patient encounter DALI B SPLAWSKI Fa cility:[facility] Start: 08-09-2017 End: 08-24-2017 Evaluation and management of inpatient AIMEE ALEMAN Facility:[facility] Procedures Date Procedure Procedure Detail Performing Clinician Start: 07-14-2023 X-ray of right knee Services [facility] Work Phone: Start: 06-16-2023 X-ray of right knee Services [facility] [email or web address] Work Phone: Start: 06-02-2023 X-ray of right knee [facility] Work Phone: Start: 05-25-2023 Arthroscopy of knee Services [facility] Work Phone: Start: 03-15-2023 Respiratory Panel (PCR) Services [facility] [employer] Phone: Start: 01-06-2023 Computed tomography of abdomen and pelvis with contrast Services [facility] [employer] Phone: Start: 01-06-2023 Plain chest X-ray Services [facility] [employer] Phone: Start: 01-06-2023 Pelvis X-ray Services [facility] [employer] Phone: Start: 01-02-2023 Urine culture Services [facility] [employer] Phone: Start: 12-31-2022 Influenza A and B virus antigen assay Services [facility] [employer] Phone: Start: 12-31-2022 Urine culture Services [facility] [employer] Phone: Start: 11-02-2022 Urine culture Services [facility] [employer] Phone: Start: 10-31-2022 Urine culture Services [facility] [employer] Phone: Start: 08-19-2022 Computed tomography of abdomen and pelvis with contrast Services [facility] [employer] Phone: Start: 06-09-2022 Esophagogastroduodenoscopy Services [facility] [employer] Phone: Start: 05-16-2022 Computed tomography of abdomen and pelvis with contrast Services [facility] [employer] Phone: Start: 08-21-2017 Introduction of Nutritional Substance [...] Date Care Activity Detail Author Start: 08-03-2024 [facility] Start: 03-18-2024 [facility] Start: 05-25-2023 [facility] Start: 05-25-2023 [facility] Start: 01-08-2023 Blood chemistry [facility] Start: 01-08-2023 [facility] Start: 01-07-2023 Blood chemistry [facility] Start: 01-07-2023 End: 01-07-2023 [facility] Start: 01-06-2023 Patient referral to dietitian [facility] Start: 01-06-2023 Hospital admission [facility] Start: 01-06-2023 [facility] Start: 01-06-2023 Computed tomography of abdomen and pelvis with contrast [facility] Start: 01-06-2023 CT Abdomen and Pelvis W contrast IV [facility] Start: 01-06-2023 End: 01-06-2023 [facility] Start: 01-06-2023 Urine culture [facility] Start: 12-31-2022 End: 12-31-2022 [facility] Start: 11-09-2022 [facility] Start: 10-29-2022 [facility] Start: 08-22-2022 [facility] Start: 08-22-2022 [facility] Work Phone: Start: 08-20-2022 Hospital admission [facility] Start: 08-20-2022 [facility] Work Phone: Start: 08-20-2022 [facility] Work Phone: Start: 08-19-2022 Computed tomography of abdomen and pelvis with contrast CT abdomen pelvis w con [facility] Start: 08-19-2022 CT Abdomen and Pelvis W contrast IV [facility] Work Phone: Start: 08-19-2022 [facility] Work Phone: Start: 07-29-2022 Influenza vaccination INFLUENZA (Season Ended) [facility] Start: 06-09-2022 [facility] Work Phone: Start: 2022 CHLAMYDIA SCREENING (18-24) CHLAMYDIA SCREENING (18-24) [facility] Start: 2022 GC (GONORRHEA) SCREENING (18-24) GC (GONORRHEA) SCREENING (18-24) [facility] Start: 2022 HEPATITIS C SCREENING HEPATITIS C SCREENING [facility] Start: 2022 HIV SCREENING HIV SCREENING [facility] Start: 2020 MENINGOCOCCAL CONJUGATE (1 - 2-dose series) MENINGOCOCCAL CONJUGATE (1 - 2-dose series) [facility] Start: 2018 PEDS TO ADULT TRANSITION ANNUAL ASSESSMENT PEDS TO ADULT TRANSITION ANNUAL ASSESSMENT [facility] Start: 2016 Adult depression screening assessment DEPRESSION SCREENING [facility] Start: 2016 PEDS TO ADULT TRANSITION INITIAL DISCUSSION PEDS TO ADULT TRANSITION INITIAL DISCUSSION [facility] Start: 2015 HPV VACCINE (1 - 2-dose series) HPV VACCINE (1 - 2-dose series) [facility] Start: 2014 MENINGOCOCCAL B: Consider based on risk (1 of 2 - Risk Bexsero 2-dose series) MENINGOCOCCAL B: Consider based on risk (1 of 2 - Risk Bexsero 2-dose series) [facility] Start: 2011 Urine microalbumin profile DTAP,TDAP,TD (1 - Tdap) [facility] Start: 2009 COVID-19 VACCINE (#1) [facility] Amphetamines [Presen ce] in Urine [facility] Work Phone: Bacteria identified in Blood by Culture [facility] Bacteria identified in Urine by Culture [facility] Bacteria identified in Urine by Culture [facility] Barbiturates [Presen ce] in Urine [facility] Work Phone: Basophils [#/volume] in Blood by Automated count [facility] Basophils/100 leukoc ytes in Blood by Automated count [facility] Benzodiazepines [Pre sence] in Urine [facility] Work Phone: Bilirubin measurement, urine [facility] Work Phone: Cannabinoids [Presen ce] in Urine by Screen method [facility] Work Phone: Choriogonadotropin ( test) [Presence] in Urine [facility] Work Phone: Cocaine [Presence] in Urine [facility] Work Phone: Color of Urine [facility] Work Phone: Detection of hemoglobin [facility] Work Phone: Eosinophils/100 leuk ocytes in Blood by Automated count [facility] Erythrocyte distribu tion width [Ratio] by Automated count [facility] Erythrocytes [#/volu me] in Blood [facility] Glucose [Mass/volume ] in Urine by Test strip [facility] Work Phone: Hematocrit [Volume F raction] of Blood [facility] Hemoglobin [Mass/vol ume] in Blood [facility] Homogenous nuclear A b pattern [Titer] in Serum [facility] Work Phone: Leukocytes [#/volume ] corrected for nucleated erythrocytes in Blood by Automated coun [facility] Leukocytes [#/volume ] in Blood [facility] Lymphocytes [#/volum e] in Blood by Automated count [facility] Lymphocytes/100 leuk ocytes in Blood by Automated count [facility] MCH [Entitic mass] b y Automated count [facility] MCHC [Mass/volume] b y Automated count [facility] MCV [Entitic volume] by Automated count [facility] Measurement of keton es in urine using dipstick [facility] Work Phone: Monocytes [#/volume] in Blood by Automated count [facility] Monocytes/100 leukoc ytes in Blood by Automated count [facility] Neutrophils [#/volum e] in Blood by Automated count [facility] Neutrophils/100 leuk ocytes in Blood by Automated count [facility] Nuclear Ab [Titer] in Serum [facility] Work Phone: Nucleated erythrocyt es [Presence] in Blood by Automated count [facility] Patient Education [facility] Work Phone: Patient referral [facility] Work Phone: Phencyclidine [Prese nce] in Urine [facility] Work Phone: Platelet mean volume [Entitic volume] in Blood by Automated count [facility] Platelets [#/volume] in Blood [facility] Protein measurement, urine F [facility] Work Phone: SARS-CoV-2 (COVID-19 ) N gene [Presence] in Respiratory specimen by JANAK with probe detection [facility] Work Phone: Urinalysis, specific gravity measurement [facility] Work Phone: Urine culture Urine Culture [facility] Urine culture [facility] Urine dipstick for nitrite F [facility] Work Phone: Urine dipstick for s pecific gravity [facility] Work Phone: Urine pH test [facility] Work Phone: Urobilinogen concent ration, test strip measurement [facility] Work Phone: [facility] Immunizations Immunization Date Immunization Notes Care Provider Susan alvarado 01-17-2018 tetanus toxoid, redu yoni diphtheria toxoid, and acellular pertussis vaccine, adsorbed [facility] Work Phone: [facility] 01-07-2017 Human Papillomavirus 9-valent vaccine [facility] Other [facility] Other 01-07-2017 HPV, unspecified formulation Services [facility] [email or web address] Work Phone: [facility] 09-06-2016 influenza, injectabl e, quadrivalent, preservative free [facility] Other [facility] 09-06-2016 Human Papillomavirus 9-valent vaccine [facility] Other [facility] [employer] Other 09-06-2016 HPV, unspecified formulation [facility] Work Phone: [facility] 07-01-2016 human papilloma viru s vaccine, quadrivalent [facility] Other [facility] 07-01-2016 meningococcal polysaccharide (groups A, C, Y and W-135) diphtheria toxoid conjugate vaccine (MCV4P) [facility] Other [facility] 07-01-2016 tetanus toxoid, redu yoni diphtheria toxoid, and acellular pertussis vaccine, adsorbed [facility] Other [facility] 09-01-2015 influenza, injectabl e, quadrivalent, preservative free [facility] Other [facility] 08-19-2014 influenza, injectabl e, quadrivalent, contains preservative Services [facility] Work Phone: [facility] 08-19-2014 influenza, injectabl e, quadrivalent, preservative free [facility] Other [facility] Other 08-17-2013 influenza, seasonal, injectable, preservative free [facility] Other [facility] Payers Date Payer Category Payer Self-pay 2019 Medicaid [employer] [id number] 2019-Present [phone] [address] [place] [address] Medicaid [id number] 2004 Unknown [id number] 2004 Unknown [id number] 2004 Unknown [id number] 2004 Unknown [id number] 2004 Unknown [id number] 2004 Unknown [id number] 1969 Unknown [id number] 1969 Unknown [id number] 1959 Medicaid [id number] Medicaid [id number] Medicaid [id number] Unknown [id number] Unknown [id number] Unknown [id number] Unknown [id number] Unknown [id number] Unknown [id number] Unknown [id number] Unknown [id number] Social History Date Type Detail Facility Start: 10-09-2021 End: 03-13-2024 Tobacco smoking status [facility] Never smoked tobacco [facility] Start: 10-09-2021 Tobacco use and exposure Smokeless tobacco non-user [facility] Start: 10-09-2021 Alcohol intake Lifetime non-d isael (finding) [facility] Start: 10-09-2021 History SDOH Alcohol Frequency 1 [facility] Start: 2004 Sex Assigned At Not on file [facility] Start: 06-09-2022 End: 08-03-2024 Tobacco smoking status AZIS Smoker (finding) [facility] Start: 2004 Sex Assigned At Female F [facility] Start: 08-18-2022 End: 05-25-2023 Tobacco smoking status [facility] Current some day smoker [facility] Start: 01-06-2023 Tobacco smoking status [facility] Ex-smoker (finding) [facility] Sex Assigned At [facility] Tobacco smoking status Never [facility] NEGATED: Highlighted row [facility] Medical Equipment Procedure Code Equipment Code Equipment Origin al Text Equipment Identifier Dates Arthroscopy, knee Tendon/ligamen t bone anchor, non-bioabsorbable [id number] FDA Start: 05-25-2023 Arthroscopy, knee Soft-tissue/me sh anchor, non-bioabsorbable ()[id number] FDA Start: 05-25-2023 Arthroscopy, knee Tendon/ligamen t bone anchor, bioabsorbable [id number] FDA Start: 05-25-2023 Goals Date Patient Goal Desired Activity /State Functional Status Date Assessment Result Facility 07-30-2024 Functional Status N/A [facility] 03-15-2024 Functional Status N/A [facility] 03-13-2024 Functional Status N/A [facility] 01-07-2023 Functional status Patient at [facility] Work Phone: 01-06-2023 Functional status Patient at [facility] Work Phone: 08-22-2022 Functional status Patient at [facility] Work Phone: Mental Status Date Assessment Result Facility 01-07-2023 Cognitive function Patient at Baseline [facility] Work Phone: 01-06-2023 Cognitive function Patient at Baseline [facility] Work Phone: 08-22-2022 Cognitive function Patient at Baseline [facility] Work Phone: Clinical Notes 09-28-2015 to 08-01-2024 [...] such as yogurt. General instructions ? Take nahe-aip-pxyhkme and prescription medicines only as told by [...] provider. Document Revised: 07/29/2022 Document Reviewed: 07/29/2022 Elsevier Patient Education ? 2023 [employer] Nausea and Vomiting, Adult Nausea is the [...] has water adde (more content not included)... [facility] 07-31-2024 Hospital Discharg e instructions Patient [...] water added (diluted fruit juice). Eat bland, ojev-fh-ubkslf foods in small amounts as you are able. These foods include bananas, applesauce, rice, lean meats, toast, and crackers. Avoid fluids that contain a lot of sugar or caffeine, such as energy drinks, sports drinks, and soda. Avoid alcohol. Avoid spicy or fatty foods. General instructions Take dlsi-mtz-bwrkycm and prescription medicines only as told by your health care provider. Drink enough fluid to keep your urine pale yellow. Wash your hands often using soap and water for at least 20 seconds. If soap and water are not available, use hand rn testing. Make sure that everyone in your household [...] eating and drinking to prevent dehydration. Take ngml-yoe-skkyguw and prescription medicines only as told by [...] provider. Document Revised: 05/21/2022 Document Reviewed: 05/21/2022 [employer] Patient Education 2023 [employer]. Follow Up Care 07/30/2024 19:27:35 With:FAMILIA CHAND Address: [facility] WERO ESTRADA [address] [address]- Business (1) When:08/02/2024 [facility] 07-30-2024 Note ED Patient Education Note [...] added (diluted fruit juice). ? Eat bland, ritv-ru-qxnyui foods in small amounts as you are able. These foods include bananas, applesauce, rice, lean meats, toast, and crackers. ? Avoid fluids that contain a lot of sugar or caffeine, such as energy drinks, sports drinks, and soda. ? Avoid alcohol. ? Avoid spicy or fatty foods. General instructions ? Take bkew-izp-xuzzsrp and prescription medicines only as told by your health care provider. ? Drink enough fluid to keep your urine pale yellow. ? Wash your hands often using soap and water for at least 20 seconds. If soap and water are not available, use hand rn testing. ? Make sure that everyone in your [...] and drinking to prevent dehydration. ? Take hnrh-qmg-uvpzgex and prescription medicines only as told by [...] provider. Document Revised: 05/21/2022 Document Reviewed: 05/21/2022 [employer] Patient Education ? 2023 [employer]. [facility] 07-30-2024 Evaluation + Plan note Extrac [...] Nausea/Vomiting, # 16 tab(s), Refills(s) 0, [id number], cm, 07/30/24 19:37:00 EDT, Height/Length Dosing, 96.1, kg, 07/30/24 19:37:00 EDT, Weight Dosing promethazine, 12.5 mg = 1 tab(s), Oral, q8hr, PRN as needed for nausea/vomiting, second line, # 10 tab(s), Refills(s) 0, Pharmacy: [facility]/pharmacy #[id number], 157, cm, 07/30/24 19:37:00 EDT, Height/Length Dosing, 96.1, kg, 07/30/24 19:37:00 EDT, Weight Dosing promethazine, 12.5 mg = 1 supp, Rectal, q8hr, PRN as needed for nausea/vomiting, 3rd line, # 6 EA, Refills(s) 0, [id number], cm, 07/30/24 19:37:00 EDT, Height/Length [...] Lipase Level Magnesium Level Saline Lock Insert [facility] 04-18-2024 Hospital Discharge instructions Patient Education [...] careprovider. Do not use recreational drugs. Take gkef-wkt-jkluxtq and prescription medicines only as told by [...] provider. Document Revised: 06/08/2022 Document Reviewed: 06/08/2022 [employer] Patient Education 2022 [employer]. 03/15/2024 13:49:41 Nausea and Vomiting, Adult Nausea [...] water added (diluted fruit juice). Eat bland, bjhe-wl-pqtjvs foods in small amounts as you are able. These foods include bananas, applesauce, rice, lean meats, toast, and crackers. Avoid fluids that contain a lot of sugar or caffeine, such as energy drinks, sports drinks, and soda. Avoid alcohol. Avoid spicy or fatty foods. General instructions Take mymg-alt-imlvxgu and prescription medicines only as told by your health care provider. Drink enough fluid to keep your urine pale yellow. Wash your hands often using soap and water for at least 20 seconds. If soap and water are not available, use hand rn testing. Make sure that everyone in your household [...] eating and drinking to prevent dehydration. Take tfpx-fyz-fvrykhr and prescription medicines only as told by [...] provider. Document Revised: 05/21/2022 Document Reviewed: 05/21/2022 [employer] Patient Education 2022 [employer]. Follow Up Care 03/15/2024 10:34:05 With:Kirk Serrano Address:Unknown When:03/22/2024 13:33:04 Comments:Make sure to follow-up with Dr. Serrano at the surgery clinic in 1 week as instructed. Return to the emergency room if you develop chest pain, shortness of breath or any symptoms. [facility]04-18-2024 Evaluation + Plan noteExtracted from: Title:ED Note Author:August Bermudez M.D. te:03/15/24 1. Nausea and vomiting (R11. 2: [...] CT Chest w/ Contrast eGFR Magnesium Level [facility]04-17-2024 Hospital Discharge instructions Patient Education 03/13/2024 22:27:59 Nausea and Vomiting, Adult, Bmhi-av-Hisz Nausea and Vomiting, Adult Nausea is feeling [...] fruit juice). ?Low-calorie sports drinks. Eat bland, hmdi-fb-bjiyqn foods in small amounts as you are able, such as: ?Bananas. ?Applesauce. ?Rice. ?Low-fat (lean) meats. ?Drasco. ?Crackers. Avoid drinking fluids that have a lot of sugar or caffeine in them. This includes energy drinks, sports drinks, and soda. Avoid alcohol. Avoid spicy or fatty foods. General instructions Take fihz-fol-bfpuqit and prescription medicines only as told by your doctor. Drink enough fluid to keep your pee (urine) pale yellow. Wash your hands often with soap and water for at least 20 seconds. If you cannot use soap and water, use hand rn testing. Make sure that everyone in your home [...] your doctor about eating and drinking. Take wwvy-exs-bfumacv and prescription medicines only as told by your doctor. Contact your doctor if your symptoms get worse or you have new symptoms. Keep all follow-up visits. This information is not intended to replace advice given to you by your health care provider. Make sure you discuss any questions you have with your health care provider. Document Revised: 05/21/2022 Document Reviewed: 05/21/2022 [employer] Patient Education 2022 [employer]. 03/13/2024 22:27:59 Muscle Strain, Unaa-he-Sryu Muscle Strain A muscle strain, or pulled [...] is not too tight. General instructions Take gfvs-mbi-sgbqwpj and prescription medicines only as told by [...] provider. Document Revised: 02/01/2022 Document Reviewed: 02/01/2022 [employer] Patient Education 2022 [employer]. Follow Up Care 03/13/2024 17:33:30 With:MODESTA CRISTELA Address: [address] [place] [address] [phone] Business (1) When:03/16/2024 Comments:You can use the medications as prescribed as needed for pain, nausea. Please follow-up with your primary care doctor for further evaluation and management. Please return to the ED if you develop chest pain, difficulty breathing or if any concerning signs or symptoms. [facility]04-16-2024 Evaluation + Plan noteExtracted from: Title:ED [...] day(s), # 9 tab(s), Refills(s) 0, [id number], cm, 03/13/24 17:38:00 EDT, Height/Length Dosing, 95.5, kg, 03/13/24 17:38:00 EDT, Weight Dosing morphine, 4 mg = 1 mL, Injection, IV Push, Once, Stop date 03/13/24 19:50:00 EDT, STAT, Start date 03/13/24 19:50:00 EDT, 03/13/24 19:50:00 EDT naproxen, 500 mg = 1 tab(s), Oral, BID, PRN for pain, # 20 tab(s), Refills(s) 0, Pharmacy: [facility]/pharmacy #[id number], 160, cm, 03/13/24 17:38:00 EDT, Height/Length Dosing, 95.5, kg, 03/13/24 17:38:00 EDT, Weight Dosing orphenadrine, 60 mg = 2 mL, Injection, IV Push, Once, Stop date 03/13/24 20:27:00 EDT, STAT, Start date 03/13/24 20:27:00 EDT, 03/13/24 20:27:00 EDT promethazine, 25 mg = 1 supp, Rectal, q6hr, PRN Nausea/Vomiting, # 6 EA, Refills(s) 0, Pharmacy: [facility]/pharmacy #[id number], 160, cm, 03/13/24 17:38:00 EDT, [...] kg, 2.06, m2 XR Chest [address] [facility]07-06-2023 Evaluation note* Encounter Date Diagnosis Assessment [...] Other specified postprocedural states (ICD-10 - Z98.890) [facility] Other 06-27-2023 Evaluation note* Encounter Date Diagnosis Assessment Notes Treatment Notes Treatment Clinical Notes Apr, Other specified postprocedural states (ICD-10 - Z98.890) [facility] Other 06-26-2023 Evaluation note* Encounter Date Diagnosis [...] pain for many months and potentially cause long-term pain and stiffness. We have discussed the many potential complications of surgery including respiratory, cardiac, and patient positioning during anesthesia. The risks of DVT, scarring, long-term pain, non union, hardware failure, development of [...] S82.111A) Apr, Pre-op exam (ICD-10 - Z01.818) [facility] Other 02-10-2023 History and physical note Author Eliana Bautista [facility] January 07, 2023 2:11am Note Date/Time January 06, 2023 5 :30pm [facility] [address] [place] [address] Hospitalist H&P Signed Patient: Pili Parikh MR#: [id number] : 2005 Acct:[id number] Age/Sex: 17 / F Adm Date: 3 Loc: Room: [address] [place] [address] Type: ADM INOo Attending Dr: Eliana Bautista MD Copies to: [facility] FRANKY Starkey MD~ HPI DATE OF [...] unless noted in the HPI or below [facility] Attestation Statement: The following information was validated [...] promethazine 25 mg rectal suppository 25 mg OH Q6H PRN Nausea #10 supp 01/02/23 [Rx [...] % (Auto) 19.9 % (.) 01/06/23 14:20 [place] % (Auto) 7.4 % (.) 01/06/23 14:20 Eos % (Auto) 2.3 % (.) 01/06/23 14:20 Baso % (Auto) 0.3 % (.) 01/06/23 14:20 Nucleat RBC Rel Count 0.1 /100 WBC (0-0.5) 01/06/23 14:20 Neut # (Auto) 12.4 x10E3/uL (1.2-7.7) H 01/06/23 14:20 Lymph # (Auto) 3.5 x10E3/uL (1.20-4.8) 01/06/23 14:20 [place] # (Auto) 1.3 x10E3/uL (0.1-1.00) H 01/06/23 [...] pH 6.5 (5.0-9.0) 01/06/23 16:10 Ur Specific Flora 1.027 (1.001-1.030) 01/06/23 16:10 Urine Protein 100 [...] MD Documented By: Anette Stout APRN 01/06/23 1656 Signed By: <Electronically signed by FRANKY Stout> 01/06/23 181 <Electronically signed by Eliana Bautista MD> 01/07/23 0212 [facility] Work Phone: 1(240) 631-223909-24-2022 Progress note Author Gregorio Carey [facility] August 21, 2022 5:01pm Note Date/Time August 21, 2022 5:01pm [facility] [address] [place] [address] Hospitalist Progress Note Signed Patient: Pili Parikh MR#: [id number] : 2005 Acct:[id number] Age/Sex: 17 / F Adm Date: 2 Loc: Room: 7N4469-1 Type: ADM IN Attending Dr: Gregorio Carey [...] alot of discomfort. 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 told her that in warm water against [...] 1 Gm/10 Ml Udc PO 08/22/23 06:59 TID.AC.[facility] - Hospitalist Assessment/Plan (1) Intractable nausea [...] 1655 Signed By: <Electronically signed by Gregorio Carey, > 08/21/22 1701 [facility] Work Phone: 1(341) 935-542809-23-2022 History and physical note Author Gregorio Carey [facility] August 20, 2022 8:17pm Note Date/Time August 20, 2022 8:17pm [facility] [address] [place] [address] Hospitalist H&P Signed Patient: Pili Parikh MR#: [id number] : 2005 Acct:[id number] Age/Sex: 17 / F Adm Date: 2 Loc: Room: [address] [place] [address] Type: ADM IN Attending Dr: Gregorio Carey DO Copies to: [facility] Senior Gregorio Sampson [place], ~ HPI DATE OF EXAMINATION: 08/20/22 [...] % (Auto) 11.5 % (.) 08/20/22 16:21 [place] % (Auto) 3.7 % (.) 08/20/22 16:21 Eos % (Auto) 0.3 % (.) 08/20/22 16:21 Baso % (Auto) 0.4 % (.) 08/20/22 16:21 Neut # (Auto) 9.2 x10E3/uL (1.2-7.7) H 08/20/22 16:21 Lymph # (Auto) 1.3 x10E3/uL (1.20-4.8) 08/20/22 16:21 [place] # (Auto) 0.4 x10E3/uL (0.1-1.00) 08/20/22 16:21 [...] intake of food or liquids. Documented By: Greogrio Carey DO 2008 Signed By: <Electronically signed by Gregorio Carey DO> 08/20/222016 [facility] Work Phone: [phone]) 906-378606-19-2022 Miscellaneous Notes* Telephone Encounter - Luana Mak [...] if she can find a way to [facility], she will go there. Reason for Disposition Chest pain [1] Chest pain lasts > 5 minutes AND [2] described as crushing, pressure-like, or heavy Protocols used: ABDOMINAL PAIN - [id number], CHEST MRVI-RIFNS-MC documented in this encounterA[facility]12-17-2021 NoteHNO ID: [id number] Author: Rolando Wooten MD Service: ? Author [...] completed when applicable. PROCEDURE NOTE: IANDD right MEDICAL COORDINATOR PESTICIDE USE Risks, benefits, personnel and alternatives were explained. The patient wished to proceed. S/he was re-identified and a time out obtained. PROCEDURE drainage right MEDICAL COORDINATOR PESTICIDE USE PREOPERATIVE DIAGNOSIS: right peritonsillar abscess POSTOPERATIVE DIAGNOSIS tonsillitis without pus in right peritonsillar area INDICATIONS: chronic right throat pain, worsening, concern for right MEDICAL COORDINATOR PESTICIDE USE at outside facility on scan . Drainage [...] no complication. MD Rolando Cherry, [facility]11-12-2021 NoteHNO ID: [id number] Author: Rolando Wooten MD Service: ? Author Type: Physician Type: Progress Notes Filed: 11/13/2021 1:09 AM Note Text: [facility] Consult This consult was requested by [...] tonsillitis. Today she has (more content not included)...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 Medical History intermittent asthma Medical History lactose intolerance Medical History POTS diag 09/2015 Surgical History appendectomy 2018 Hospitalization History strepthroat, uri, dehydr ation, otitis media 2004 Hospitalization History dehydtation 2006 Hospitalization History [facility] - persistent vomiti ng 09/12- Hospitalization History 3 days vomitting blood 0 01/2017 Hospitalization History vomiting, abd pain, dehy dration [facility] 07/22-07/27/2017 Hospitalization History RBC 08/14 [facility] Other Evaluation noteNo assessment information available [facility] Work Phone: Evaluation note* Diagnosis Onset Date Resolution Status Nausea & vomiting acute [facility] Work Phone: Evaluation note* Diagnosis Onset Date Resolution Status Dehydration acute Hypokalemia acute Intractable nausea and vomiting acute Nausea & vomiting acute [facility] Work Phone: Evaluation note* Diagnosis Onset Date Resolution Status Abdominal pain acute Acute hypokalemia acute Chest pain acute Dehydration acute Hypokalemia acute Hypovolemia acute Beverley-Cotton tear acute Nausea & vomiting acute [facility] Work Phone: History and physical note Author Eliana Bautista [facility] January 07, 2023 2:11am Note Date/Time January 06, 2023 5 :30pm [facility] [address] [place] [address] Hospitalist H&P Signed Patient: Pili Parikh MR#: [id number] : 2005 Acct:[id number] Age/Sex: 17 / F Adm Date: 3 Loc: Room: [address] [place] [address] Type: ADM INOo Attending Dr: Eliana Bautista MD Copies to: [facility] FRANKY Starkey MD~ HPI DATE OF [...] unless noted in the HPI or below [facility] Attestation Statement: The following information was validated [...] promethazine 25 mg rectal suppository 25 mg OH Q6H PRN Nausea #10 supp 01/02/23 [Rx [...] % (Auto) 19.9 % (.) 01/06/23 14:20 [place] % (Auto) 7.4 % (.) 01/06/23 14:20 Eos % (Auto) 2.3 % (.) 01/06/23 14:20 Baso % (Auto) 0.3 % (.) 01/06/23 14:20 Nucleat RBC Rel Count 0.1 /100 WBC (0-0.5) 01/06/23 14:20 Neut # (Auto) 12.4 x10E3/uL (1.2-7.7) H 01/06/23 14:20 Lymph # (Auto) 3.5 x10E3/uL (1.20-4.8) 01/06/23 14:20 [place] # (Auto) 1.3 x10E3/uL (0.1-1.00) H 01/06/23 [...] pH 6.5 (5.0-9.0) 01/06/23 16:10 Ur Specific Flora 1.027 (1.001-1.030) 01/06/23 16:10 Urine Protein 100 [...] signed by Eliana Bautista MD> 01/07/23 0211 [facility] Work Phone: Hospital course Narrative No data available for this section [facility] Work Phone: Hospital Discharge instructions Additional Instructions Follow-up with your primary care doctor Return to ED if develop worsening symptoms or concernsD[facility] Work Phone: Hospital Discharge instructions Additional Instructions Follow-up with your primary care doctor Return to the ED if you develop worsening symptoms or concernsD[facility] Work Phone: Hospital Discharge instructions Additional Instructions Take Phenergan as prescribed for nausea vomiting. Take Motrin and Tylenol as needed for muscle aches and pains. Take Carafate as prescribed.[facility] Work Phone: Hospital Discharge instructions [...] you should first call your surgeon at [phone] for advice. If your are unable to contact your surgeon, seek help from a hospital emergency room. [facility] Work Phone: Hospital Discharge instructions Additional Instructions [...] with your family physician as soon as possible.[facility] Work Phone: Progress note No data available for this section [facility] Summary Purpose Family History No Family [...] section and content) DATE CREATED AUTHOR 06/05/2018 [employer] DATE CREATED AUTHOR AUTHOR'S ORGANIZ ATION 07/14/2018 [facility] DATE CREATED AUTHOR AUTHOR'S ORGANIZ ATION 01/04/[address] [facility] DATE CREATED AUTHOR AUTHOR'S ORGANIZ ATION 02/02/2023 [facility] DATE CREATED AUTHOR AUTHOR'S ORGANIZ ATION 07/30/2024 [facility] DATE CREATED AUTHOR AUTHOR'S ORGANIZ ATION 08/02/2024 [facility] DATE CREATED AUTHOR AUTHOR'S ORGANIZ ATION 08/05/2024 [facility] DATE CREATED AUTHOR AUTHOR'S ORGANIZ ATION 08/06/2024 [facility] DATE CREATED AUTHOR AUTHOR'S ORGANIZ ATION 11/09/2024 [facility] Source Comments (unrecognize d section and content) In the event this informatio n is protected by the Federal Confidentiality of Alcohol and Drug Abuse Patient Records regulations: The Federal rules restrict any use of the information to criminally investigate or prosecute any alcohol or drug abuse patient.[facility] Reason for Visit (unrecogniz ed section and content) Reason Comments Abdominal Pain Care Teams (unrecognized sec tion and content) Team Status: Inactive Member Role Status Dates Services [facility] Primary Care Provider Ac tive ZAMZAM TaylorC Attending Provide r Active Team Status: Inactive Member Role Status Dates Services [facility] Primary Care Provider Active MILY Taylor Attending Provide r Active Team Status: Inactive Member Role Status Dates Services [facility] Primary Care Provider Active Brennen Britt MD Attending Provider Active Team Status: Inactive Member Role Status Dates Services [facility] Primary Care Provider Active Art Bianchi DO Emergency Provider Active Team Status: Inactive Member Role Status Dates Services [facility] Primary Care Provider Active Ravi Arguello DO Emergency Provider Active Team Status: Inactive Member Role Status Dates Services [facility] Primary Care Provider Active Ender Donovan DO Emergency Provider Active Team Status: Inactive Member Role Status Dates Services [facility] Primary Care Provider Active Gilson Castro DO Emergency Provider Active Team Status: Active Member Role Status Dates Services [facility] Primary Care Provider Ac latesha Team Status: Inactive Member Role Status Dates Services [facility] Primary Care Provider Ac latesha Rivera APRN Emergency Provider Active Team Status: Inactive Member Role Status Dates Services [facility] Primary Care Provider Ac latesha Fry Jr, MD Emergency Provider Active Team Status: Inactive Member Role Status Dates Services [facility] Primary Care Provider Ac latesha Castro DO Emergency Provider Active Team Status: Active Member Role Status Dates Services [facility] Primary Care Provider Ac latesha Castro DO Emergency Provider Active Gregorio Carey , DO Admit Provider, Attending Pr ovidpierce Active Team Status: Inactive Member Role Status Dates Services [facility] Primary Care Provider Ac latesha Castro DO Emergency Provider Active Gregorio Carey , DO Admit Provider, Attending Pr ovider Active Team Status: Inactive Member Role Status Dates Services [facility] Primary Care Provider Ac tive Ravi Arguello , DO Emergency Provider Active Team Status: Inactive Member Role Status Dates Art Hope Tash , DO Emergency Provider Active Services [facility] Primary Care Provider Ac tive Team Status: Inactive Member Role Status Dates [facility] Primary Care Provider Ac tive Robert Camara Lory , DO Emergency Provider Active Team Status: Inactive Member Role Status Dates Services [facility] Primary Care Provider Ac latesha Hope Tash , DO Emergency Provider Active Team Status: Inactive Member Role Status Dates [facility] Primary Care Provider Active Corey Newberry MD Emergency Provider Active Team Status: Active Member Role Status [facility] Services [facility] Primary Care Provider Active Team Status: Inactive Member Role Status [facility] Primary Care Provider Active Federico Randolph , DO Emergency Provider Active Team Status: Active Member Role Status [facility] Primary Care Provider Active Rd Brown PA-C Emergency Provider Active Eliana Bautista MD Admit Provider, Attending Provider Active Team Status: Inactive Member Role Status [facility] Primary Care Provider Active Rd Brown PA-C Emergency Provider Active Eliana Bautista MD Admit Provider, Attending Provider Active Team Status: Inactive Member Role Status [facility] Primary Care Provider Active Colten Miller MD Attending Provider Active Team Status: Inactive Member Role Status Dates [facility] Primary Care Provider Active Start: March 18, 2024 End: March 19, 2024 Jacinto Benitez MD Emergency Provider Active Star t: March 18, 2024 End: March 19, 2024 Team Status: Inactive Member Role Status [facility] Primary Care Provider Active Start: August 03, [...] BE BASED ON THE PRIMARY CLINICAL RECORDS. [facility] [employer] [facility]. provides no warranty or guarantee of the accuracy or completeness of information in this document.
--- NOTE | 2024-12-28 21:03 | ED.ABDPAIN1 ---
Documented by User: Amira Resendez 12/28/24 21:05 HPI - Abdominal Pain General Chief Complaint: Abdominal Pain Stated Complaint: cramps Time Seen by Provider: 12/28/24 20:39 Source: patient Mode of arrival: walk-in History of Present Illness HPI narrative: 19-year-old female presents here with a chief complaint abdominal cramping and menstruation. She has a history of miscarriage in the past. She denies a known history of recent . She does have a Nexplanon in place. Patient states her cramping and pain began earlier today. She is afebrile nontoxic. She denies using or taking any test. Related Data Previous Rx's ?Medication ?Instructions ?Recorded promethazine 25 mg tablet 25 mg PO TID PRN nausea and 07/30/24 vomiting #10 tabs Allergies Allergy/AdvReac Type Severity Reaction Status Date / Time haloperidol (From Haldol) Allergy Severe icthy Verified 10/25/24 11:15 metoclopramide (From Reglan) AdvReac Intermediate facial Verified 10/25/24 11:15 drooping Review of Systems ROS Narrative All Systems are negative except as noted/marked.All systems reviewed and otherwise negative [facility] Medical History (Updated 12/28/24 @ 21:58 by Juan C Hernandez MD) Leukocytosis ?D72.829 - Elevated white blood cell count, unspecified (ICD-10) Bipolar 1 disorder ?F31.9 - Bipolar disorder, unspecified (ICD-10) Migraine ?G43.909 - Migraine, unspecified, not intractable, without status migrainosus (ICD-10) POTS (postural orthostatic tachycardia syndrome) ?G90.A - Postural orthostatic tachycardia syndrome [POTS] (ICD-10) Cyclic vomiting syndrome ?R11.15 - Cyclical vomiting syndrome unrelated to migraine (ICD-10) Cyclic vomiting syndrome ?R11.15 - Cyclical vomiting syndrome unrelated to migraine (ICD-10) Fall ?W19.XXXA - Unspecified fall, initial encounter (ICD-10) Fracture of tibial plateau ?S82.143A - Displaced bicondylar fracture of unspecified tibia, initial encounter for closed fracture (ICD-10) Surgical History History of appendectomy ?Z90.49 - Acquired absence of other specified parts of digestive tract (ICD-10) Family History Father Family history of stroke Family history of diabetes mellitus Family history of cancer Family history of hypertension Family history of CHF (congestive heart failure) Grandfather Family history of stroke Grandmother Family history of myocardial infarction Mother Family history of diabetes mellitus Family history of cancer Social History Within the past year, how often did you have a drink containing alcohol: never Score interpretation: A score less than 3 is consistent with normal alcohol consumption. Smoking status: Current every day smoker Non-prescribed substance use: cannabis (any form) Little interest or pleasure in doing things: not at all Feeling down, depressed, or hopeless: not at all Do you think of yourself as: straight/heterosexual Gender Identity: female Exam Narrative Exam Narrative: Nurses note and vital signs reviewed and patient is not hypoxic. General: The patient appears well and in no apparent distress. Patient is resting comfortably on cart. Skin: Warm, dry, no pallor noted. There is no rash noted. Head: Normocephalic, atraumatic Eye: Normal conjunctiva, no drainage, EOMI. PERRL Ears, Nose, Mouth, and Throat: oral mucosa is moist. Nares patent. Mouth without vesicles. Ear canals patent. Tm's without Erythema Cardiovascular: Regular Rate and Rhythm Respiratory: Patient is in no distress, no accessory muscle use, lungs are clear to auscultation, no wheezing, rales or rhonchi Back: non-tender, no CVA tenderness bilaterally to percussion. GI: Normal bowel sounds, no tenderness to palpation, no masses appreciated. No rebound, guarding, or rigidity noted. Musculoskeletal: The patient has no evidence of calf tenderness, no pitting edema, symmetrical pulses noted bilaterally Neurological: A&O x4, normal speech Psychiatric: Cooperative Constitutional Vital Signs, click to edit/add: Last Vital Signs Temp 98.4 F 12/28/24 20:31 Pulse 62 12/28/24 20:31 Resp 16 12/28/24 20:31 BP 127/78 12/28/24 20:31 Pulse Ox 97 12/28/24 20:31 O2 Del Method Room Air 12/28/24 20:31 Course Vital Signs Vital signs: Vital Signs Temperature 98.4 F 12/28/24 20:31 Pulse Rate 62 12/28/24 20:31 Respiratory Rate 16 12/28/24 20:31 Blood Pressure 127/78 12/28/24 20:31 Pulse Oximetry 97 12/28/24 20:31 Oxygen Delivery Method Room Air 12/28/24 20:31 Temperature 98.4 F 12/28/24 20:31 Pulse Rate 62 12/28/24 20:31 Respiratory Rate 16 12/28/24 20:31 Blood Pressure 127/78 12/28/24 20:31 Pulse Oximetry 97 12/28/24 20:31 Oxygen Delivery Method Room Air 12/28/24 20:31 MDM - Abdominal Pain MDM Narrative Medical decision making narrative: Patient presenting her complaining of heavy menstrual cycling. Urinalysis and urine Prag are currently pending. Patient be medicated with Toradol once is back and negative. Follow-up with her [employer]IC. Transition of care to Dr. Wilcox. Differential Diagnosis Differential diagnosis: Likely other (menorrhagia, abdominal pain) Medical Records Attestation: I reviewed the patient's medical records. Lab Data Attestation: I reviewed the patient's lab results. Labs: Lab Results 12/28/24 Range/Units 21:10 Urine Color Yellow (YELLOW) Urine Clarity Cloudy A (CLEAR) Urine pH >=9.0 A (5.0-9.0) Ur Specific [place] 1.010 (1.005-1.025) Urine Protein 100 A (NEG/TRACE) mg/dL Urine Glucose (UA) Negative (NEGATIVE) mg/dL Urine Ketones 40 A (NEGATIVE) mg/dL Urine Occult Blood Large A (NEGATIVE) Urine Nitrite Negative (NEGATIVE) Urine Bilirubin Small A (NEGATIVE) Urine Urobilinogen 1.0 (0.2-1.0) EU/dL Ur Leukocyte Esterase Trace A (NEGATIVE) Urine RBC 5-10 A (0-2) #/HPF Urine WBC 2-5 A (NONE SEEN) #/HPF Ur Squamous Epith Cells Many A (NONE/RARE) #/LPF Urine Crystals None seen (None Seen) #/HPF Urine Bacteria Small A (NONE SEEN) #/HPF Urine Casts None seen (NONE SEEN) #/LPF Urine Mucus Moderate A (NONE SEEN) Ur Culture Indicated? Yes Urine HCG, Qual Negative (NEGATIVE) Discharge Plan Discharge Chief Complaint: Abdominal Pain Clinical Impression: Dysfunctional uterine bleeding Patient Disposition: Home, Self-Care Time of Disposition Decision: 21:58 Condition: Good Mode of Transportation: Private Vehicle Prescriptions / Home Meds: No Action promethazine 25 mg tablet 25 mg PO TID PRN (Reason: nausea and vomiting) Qty: 10 0RF Print Language: Andorran Instructions: Abnormal (Dysfunctional) Uterine Bleeding (ED) Additional Instructions: Contact your mud mill tender when their office is open. Referrals: Modesta Chand TEST DEPARTMENT HELPER [Primary Care Provider] - 1 week Documented by User: Juan C Hernandez MD 12/28/24 22:00 HPI - Abdominal Pain General Chief Complaint: Abdominal Pain Stated Complaint: cramps Time Seen by Provider: 12/28/24 20:39 Related Data Previous Rx's ?Medication ?Instructions ?Recorded promethazine 25 mg tablet 25 mg PO TID PRN nausea and 07/30/24 vomiting #10 tabs Allergies Allergy/AdvReac Type Severity Reaction Status Date / Time haloperidol (From Haldol) Allergy Severe icthy Verified 10/25/24 11:15 metoclopramide (From Reglan) AdvReac Intermediate facial Verified 10/25/24 11:15 drooping PFSH PFSH Medical History (Updated 12/28/24 @ 21:58 by Juan C Hernandez MD) Leukocytosis ?D72.829 - Elevated white blood cell count, unspecified (ICD-10) Bipolar 1 disorder ?F31.9 - Bipolar disorder, unspecified (ICD-10) Migraine ?G43.909 - Migraine, unspecified, not intractable, without status migrainosus (ICD-10) POTS (postural orthostatic tachycardia syndrome) ?G90.A - Postural orthostatic tachycardia syndrome [POTS] (ICD-10) Cyclic vomiting syndrome ?R11.15 - Cyclical vomiting syndrome unrelated to migraine (ICD-10) Cyclic vomiting syndrome ?R11.15 - Cyclical vomiting syndrome unrelated to migraine (ICD-10) Fall ?W19.XXXA - Unspecified fall, initial encounter (ICD-10) Fracture of tibial plateau ?S82.143A - Displaced bicondylar fracture of unspecified tibia, initial encounter for closed fracture (ICD-10) Surgical History History of appendectomy ?Z90.49 - Acquired absence of other specified parts of digestive tract (ICD-10) Family History Father Family history of stroke Family history of diabetes mellitus Family history of cancer Family history of hypertension Family history of CHF (congestive heart failure) Grandfather Family history of stroke Grandmother Family history of myocardial infarction Mother Family history of diabetes mellitus Family history of cancer Social History Within the past year, how often did you have a drink containing alcohol: never Score interpretation: A score less than 3 is consistent with normal alcohol consumption. Smoking status: Current every day smoker Non-prescribed substance use: cannabis (any form) Little interest or pleasure in doing things: not at all Feeling down, depressed, or hopeless: not at all Do you think of yourself as: straight/heterosexual Gender Identity: female Exam Constitutional Vital Signs, click to edit/add: Last Vital Signs Temp 98.4 F 12/28/24 20:31 Pulse 62 12/28/24 20:31 Resp 16 12/28/24 20:31 BP 127/78 12/28/24 20:31 Pulse Ox 97 12/28/24 20:31 O2 Del Method Room Air 12/28/24 20:31 Course Vital Signs Vital signs: Vital Signs Temperature 98.4 F 12/28/24 20:31 Pulse Rate 62 12/28/24 20:31 Respiratory Rate 16 12/28/24 20:31 Blood Pressure 127/78 12/28/24 20:31 Pulse Oximetry 97 12/28/24 20:31 Oxygen Delivery Method Room Air 12/28/24 20:31 Temperature 98.4 F 12/28/24 20:31 Pulse Rate 62 12/28/24 20:31 Respiratory Rate 16 12/28/24 20:31 Blood Pressure 127/78 12/28/24 20:31 Pulse Oximetry 97 12/28/24 20:31 Oxygen Delivery Method Room Air 12/28/24 20:31 MDM - Abdominal Pain MDM Narrative Medical decision making narrative: Patient presenting her complaining of heavy menstrual cycling. Urinalysis and urine Preg are currently pending. Patient be medicated with Toradol once is back and negative. Follow-up with her [employer]. Transition of care to Dr. Hernandez. JK 10:00pm test is negative. She was reassured that she is not having a miscarriage or ectopic . She will call her mud mill tender when their office is open for appropriate follow-up. It is likely that her Nexplanon is at the end of its expected period of utility. Treatment diagnosis and follow-up were discussed with the patient Differential Diagnosis Differential diagnosis: Likely abdominal pain Lab Data Attestation: I reviewed the patient's lab results. Labs: Lab Results 12/28/24 Range/Units 21:10 Urine Color Yellow (YELLOW) Urine Clarity Cloudy A (CLEAR) Urine pH >=9.0 A (5.0-9.0) Ur Specific [place] 1.010 (1.005-1.025) Urine Protein 100 A (NEG/TRACE) mg/dL Urine Glucose (UA) Negative (NEGATIVE) mg/dL Urine Ketones 40 A (NEGATIVE) mg/dL Urine Occult Blood Large A (NEGATIVE) Urine Nitrite Negative (NEGATIVE) Urine Bilirubin Small A (NEGATIVE) Urine Urobilinogen 1.0 (0.2-1.0) EU/dL Ur Leukocyte Esterase Trace A (NEGATIVE) Urine RBC 5-10 A (0-2) #/HPF Urine WBC 2-5 A (NONE SEEN) #/HPF Ur Squamous Epith Cells Many A (NONE/RARE) #/LPF Urine Crystals None seen (None Seen) #/HPF Urine Bacteria Small A (NONE SEEN) #/HPF Urine Casts None seen (NONE SEEN) #/LPF Urine Mucus Moderate A (NONE SEEN) Ur Culture Indicated? Yes Urine HCG, Qual Negative (NEGATIVE) Discharge Plan Discharge Chief Complaint: Abdominal Pain Clinical Impression: Dysfunctional uterine bleeding Patient Disposition: Home, Self-Care Time of Disposition Decision: 21:58 Condition: Good Mode of Transportation: Private Vehicle Prescriptions / Home Meds: No Action promethazine 25 mg tablet 25 mg PO TID PRN (Reason: nausea and vomiting) Qty: 10 0RF Print Language: Andorran Instructions: Abnormal (Dysfunctional) Uterine Bleeding (ED) Additional Instructions: Contact your mud mill tender when their office is open. Referrals: Modesta Chand, TEST DEPARTMENT HELPER [Primary Care Provider] - 1 week
[2024-12-28 21:47] LABS: Bilirubin Urine SMALL (NEGATIVE); Blood Urine LARGE (NEGATIVE); Clarity Urine CLOUDY (CLEAR); Color Urine YELLOW (YELLOW); Glucose Urine UA NEGATIVE (NEGATIVE); Ketones Urine 40 mg/dL (NEGATIVE); Leukocyte Esterase Urine TRACE (NEGATIVE); Nitrite Urine NEGATIVE (NEGATIVE); Protein Urine 100 mg/dL (NEG/TRACE); pH Urine >=9.0 (5.0-9.0)
[2024-12-28 21:51] LABS: HCG Qualitative Urine* NEGATIVE (NEGATIVE); Internal Control Within Normal Limits
[2024-12-28 21:56] LABS: Bacteria Urine SMALL #/HPF (NONE SEEN); Cast Seen? NONE SEEN #/LPF (NONE SEEN); Crystals Seen? None Seen #/HPF (None Seen); Mucus Urine MODERATE (NONE SEEN); Squamous Epithelial Cell Urine MANY #/LPF (NONE/RARE); Urine Culture Indicated YES
[2024-12-28] MEDS: KETOROLAC TROMETHAMINE 60 MG/2 ML VIAL IM (22:11)
[2024-12-28 22:14] VITALS: BP 92/52; PULSE 71; O2SAT 97
== END 2024-12-28 22:16 | disposition home or self-care (01) ==
PROVIDERS: Physician Assistant; Emergency Provider Emergency Medicine; PCP Nurse Practitioner Family
DX: N93.8 Other specified abnormal uterine and vaginal bleeding (principal); R10.9 Unspecified abdominal pain; Z90.49 Acquired absence of other specified parts of digestive tract; F17.200 Nicotine dependence, unspecified, uncomplicated
CPT/HCPCS: 81001; 84703; 87086; 96372; 99284; J1885

== ENCOUNTER 2025-01-09 15:30 | Emergency (ER) | payer OTHER, SELFPAY ==
[2025-01-09 15:35] VITALS: BP 127/84; PULSE 100; TEMP 36.9; O2SAT 97; BMI 32.9
--- NOTE | 2025-01-09 16:07 | ED_ITS ---
HPI - URI/Sore Throat General Chief Complaint: Upper Respiratory Infection Stated Complaint: COUGH Time Seen by Provider: 01/09/25 15:32 Source: patient Limitations: no limitations History of Present Illness HPI Narrative: Patient is a 19-year-old female who presents to the emergency department for cough and congestion for the last 2 days. She reports intermittent subjective fevers. Patient is well-known to this emergency department for history of cyclic vomiting. She states that she has had posttussive emesis but no persistent vomiting or diarrhea. Her father is also being evaluated for upper respiratory symptoms and multiple people in the home have been sick. She has no concern for . She has been using [id number] medications without improvement. Related Data Previous Rx's ?Medication ?Instructions ?Recorded promethazine 25 mg tablet 25 mg PO TID PRN nausea and 07/30/24 vomiting #10 tabs nekajjyuxcjqlmj-qtumdowilzpmpbd-CP 10 ml PO Q6H PRN cold symptoms 01/09/25 2 mg-30 mg-10 mg/5 mL oral syrup #200 mL (Bromfed DM) ondansetron 4 mg disintegrating 4 mg PO Q6H PRN nausea and 01/09/25 tablet vomiting #12 tabs Allergies Allergy/AdvReac Type Severity Reaction Status Date / Time haloperidol (From Haldol) Allergy Severe icthy Verified 01/09/25 15:35 metoclopramide (From Reglan) AdvReac Intermediate facial Verified 01/09/25 15:35 drooping Review of Systems ROS Constitutional Reports: fever and chills Ears, nose, mouth, and throat Reports: nasal congestion; Denies: throat pain Cardiovascular Denies: chest pain Respiratory Reports: cough; Denies: shortness of breath Gastrointestinal Denies: nausea, vomiting or diarrhea Neurological Denies: headache or dizziness [facility] Medical History (Updated 01/09/25 @ 16:43 by KALLI Bhagat) Leukocytosis ?D72.829 - Elevated white blood cell count, unspecified (ICD-10) Bipolar 1 disorder ?F31.9 - Bipolar disorder, unspecified (ICD-10) Migraine ?G43.909 - Migraine, unspecified, not intractable, without status migrainosus (ICD-10) POTS (postural orthostatic tachycardia syndrome) ?G90.A - Postural orthostatic tachycardia syndrome [POTS] (ICD-10) Cyclic vomiting syndrome ?R11.15 - Cyclical vomiting syndrome unrelated to migraine (ICD-10) Cyclic vomiting syndrome ?R11.15 - Cyclical vomiting syndrome unrelated to migraine (ICD-10) Fall ?W19.XXXA - Unspecified fall, initial encounter (ICD-10) Fracture of tibial plateau ?S82.143A - Displaced bicondylar fracture of unspecified tibia, initial encounter for closed fracture (ICD-10) Surgical History History of appendectomy ?Z90.49 - Acquired absence of other specified parts of digestive tract (ICD- 10) Family History Father Family history of stroke Family history of diabetes mellitus Family history of cancer Family history of hypertension Family history of CHF (congestive heart failure) Grandfather Family history of stroke Grandmother Family history of myocardial infarction Mother Family history of diabetes mellitus Family history of cancer Social History Within the past year, how often did you have a drink containing alcohol: never Score interpretation: A score less than 3 is consistent with normal alcohol consumption. Smoking status: Current every day smoker Non-prescribed substance use: cannabis (any form) Little interest or pleasure in doing things: not at all Feeling down, depressed, or hopeless: not at all Do you think of yourself as: straight/heterosexual Gender Identity: female Exam Narrative Exam Narrative: Gen.: Awake, alert, in no distress Head: Normocephalic, atraumatic ENT: Moist mucous membranes, bilateral TMs clear Respiratory: No respiratory distress, lungs clear bilaterally Cardio: Regular rate and rhythm Extremities: Moves extremities equally Psych: Normal mood and affect Neuro: No focal neuro deficit Skin: Warm, dry, intact Constitutional Vital Signs, click to edit/add: Last Vital Signs Temp 98.4 F 01/09/25 15:35 Pulse 100 H 01/09/25 15:35 Resp 20 01/09/25 15:35 BP 127/84 01/09/25 15:35 Pulse Ox 97 01/09/25 15:35 O2 Del Method Room Air 01/09/25 15:35 Course Vital Signs Vital signs: Vital Signs Temperature 98.4 F 01/09/25 15:35 Pulse Rate 100 H 01/09/25 15:35 Respiratory Rate 20 01/09/25 15:35 Blood Pressure 127/84 01/09/25 15:35 Pulse Oximetry 97 01/09/25 15:35 Oxygen Delivery Method Room Air 01/09/25 15:35 Temperature 98.4 F 01/09/25 15:35 Pulse Rate 100 H 01/09/25 15:35 Respiratory Rate 20 01/09/25 15:35 Blood Pressure 127/84 01/09/25 15:35 Pulse Oximetry 97 01/09/25 15:35 Oxygen Delivery Method Room Air 01/09/25 15:35 MDM - URI/Sore Throat MDM Narrative Medical decision making narrative: COVID and flu testing is negative. Patient given Decadron in the ER and is discharged home with Zofran and Bromfed-DM. Follow-up PCP and return to the ER if symptoms change or worsen SUPERVISED APC VISIT, PHYSICIAN ATTESTATION: Based on the medical record the care appears appropriate. ? Medical Records Attestation: I reviewed the patient's medical records. Lab Data Attestation: I reviewed the patient's lab results. Labs: Lab Results 01/09/25 Range/Units 15:42 Influenza Type A Ag Negative Influenza Type B Ag Negative SARS-CoV-2 Ag (CV2AG) Negative (NEGATIVE) Discharge Plan Discharge Chief Complaint: Upper Respiratory Infection Clinical Impression: Upper respiratory infection Patient Disposition: Home, Self-Care Time of Disposition Decision: 16:43 Condition: Good Prescriptions / Home Meds: New faqfnyriguylnip-vbraudwdp-GI [Bromfed DM] 2-30-10 mg/5 mL syrup 10 ml PO Q6H PRN (Reason: cold symptoms) Qty: 200 0RF ondansetron 4 mg tablet,disintegrating 4 mg PO Q6H PRN (Reason: nausea and vomiting) Qty: 12 0RF No Action promethazine 25 mg tablet 25 mg PO TID PRN (Reason: nausea and vomiting) Qty: 10 0RF Print Language: Ug[place]an Instructions: Upper Respiratory Infection (ED) Referrals: Modesta Chand, STAFF DEVELOPMENT COORDINATOR [Primary Care Provider] - 1 week
[2025-01-09] MEDS: DEXAMETHASONE SOD PHOS 10 MG/ML VIAL PO (16:20)
[2025-01-09 16:35] LABS: Influenza Virus A Antigen Negative; Influenza Virus B Antigen Negative; Internal Control Within Normal Limits; SARS-CoV-2 Ag NEGATIVE (NEGATIVE)
== END 2025-01-09 17:15 | disposition home or self-care (01) ==
PROVIDERS: Physician Assistant; Emergency Provider Emergency Medicine; PCP Nurse Practitioner Family
DX: J06.9 Acute upper respiratory infection, unspecified (principal); Z90.49 Acquired absence of other specified parts of digestive tract; F17.200 Nicotine dependence, unspecified, uncomplicated
CPT/HCPCS: 87804; 87811; 99284; J1100

== ENCOUNTER 2025-01-16 08:34 | Emergency (ER) | payer OTHER, SELFPAY ==
[2025-01-16 08:39] VITALS: BP 140/65; PULSE 51; TEMP 37.1; O2SAT 99; BMI 34.8
--- NOTE | 2025-01-16 08:54 | ED_ITS ---
HPI HPI - General Adult General Chief complaint: Nausea/Vomiting/Diarrhea Stated complaint: VOMITTING Time Seen by Provider: 01/16/25 08:36 Source: patient Mode of arrival: walk-in Limitations: no limitations History of Present Illness HPI narrative: 19-year-old female to the emergency department with chief complaint of nausea and vomiting. She denies any abdominal pain. She reports she is having a typical flare of her cyclic vomiting syndrome. She reports that she has had this for the last 7 years. She reports it comes on typically last 24 to 48 hours. Her flare started last evening. She has only been able to keep down small sips of water. She says typically Toradol, Phenergan, Benadryl and Zofran given together will help get her relief and get her tolerating fluids. She reports that this has been worked up extensively in the past including labs, CT scans, admission, GI consultations. She has been told it is cyclic vomiting syndrome related both to her POTS and marijuana use. She has not ceased marijuana use. No medications taken at home prior to arrival Related Data Allergies Allergy/AdvReac Type Severity Reaction Status Date / Time haloperidol (From Haldol) Allergy Severe icthy Verified 01/16/25 08:39 metoclopramide (From Reglan) AdvReac Intermediate facial Verified 01/16/25 08:39 drooping Opioid HPI Opioid Management Most Recent Opioid Data: Last Pain Scale 4 01/16/25 08:56 01/16/25 Last JAN Pain Assessment 01/16/25 08:56 Ur Phencyclidine Scrn Negative (NEGATIVE) 10/26/24 14:00 09/29 08/21 Review of Systems ROS Status of ROS 10 or more systems reviewed and unremark able except as noted in history and below [facility] Medical History (Updated 01/16/25 @ 08:58 by Pradeep Guthrie MD) Leukocytosis ?D72.829 - Elevated white blood cell count, unspecified (ICD-10) Bipolar 1 disorder ?F31.9 - Bipolar disorder, unspecified (ICD-10) Migraine ?G43.909 - Migraine, unspecified, not intractable, without status migrainosus (ICD-10) POTS (postural orthostatic tachycardia syndrome) ?G90.A - Postural orthostatic tachycardia syndrome [POTS] (ICD-10) Cyclic vomiting syndrome ?R11.15 - Cyclical vomiting syndrome unrelated to migraine (ICD-10) Cyclic vomiting syndrome ?R11.15 - Cyclical vomiting syndrome unrelated to migraine (ICD-10) Fall ?W19.XXXA - Unspecified fall, initial encounter (ICD-10) Fracture of tibial plateau ?S82.143A - Displaced bicondylar fracture of unspecified tibia, initial encounter for closed fracture (ICD-10) Surgical History History of appendectomy ?Z90.49 - Acquired absence of other specified parts of digestive tract (ICD- 10) Family History Father Family history of stroke Family history of diabetes mellitus Family history of cancer Family history of hypertension Family history of CHF (congestive heart failure) Grandfather Family history of stroke Grandmother Family history of myocardial infarction Mother Family history of diabetes mellitus Family history of cancer Social History Within the past year, how often did you have a drink containing alcohol: never Score interpretation: A score less than 3 is consistent with normal alcohol consumption. Smoking status: Current every day smoker Non-prescribed substance use: cannabis (any form) Little interest or pleasure in doing things: not at all Feeling down, depressed, or hopeless: not at all Do you think of yourself as: straight/heterosexual Gender Identity: female Exam Narrative Exam Narrative: VITALS: I have reviewed the triage vital signs. GENERAL: Well developed, well appearing adult in no acute distress. Father at the bedside. NEURO: Alert and oriented. Moves all extremities. Face is symmetric and expressive. EYES: PERRL. No scleral icterus or conjunctival injection. No discharge. HENT: Normocephalic, atraumatic. Hearing is grossly intact. Nares grossly patent and without discharge. Mucous membranes moist. NECK: No JVD. Patient moves neck without restriction. CARDIO: Rhythm regular. Normal rate. No murmur, rub, or gallop. Pulses equal bilaterally in the upper and lower extremity. No lower extremity edema. PULM: Lungs clear to auscultation in all arevalo. No wheezes, rales, or rhonchi. No conversational dyspnea. No splinting, stridor, or accessory muscle use. GI/: Abdomen is soft and non-tender. Normoactive bowel sounds. EXTREMITIES: Symmetric muscle bulk. No joint swelling. No clubbing, cyanosis, or deformity. SKIN: Warm and dry. Normal turgor. No rash or lesions appreciated. PSYCH: Mood, affect, and interaction is appropriate to the setting. Constitutional Vital Signs, click to edit/add: Last Vital Signs Temp 98.8 F 01/16/25 08:39 Pulse 51 L 01/16/25 08:39 Resp 20 01/16/25 08:39 BP 140/65 01/16/25 08:39 Pulse Ox 99 01/16/25 08:39 O2 Del Method Room Air 01/16/25 08:39 Course Vital Signs Vital signs: Vital Signs Temperature 98.8 F 01/16/25 08:39 Pulse Rate 51 L 01/16/25 08:39 Respiratory Rate 20 01/16/25 08:39 Blood Pressure 140/65 01/16/25 08:39 Pulse Oximetry 99 01/16/25 08:39 Oxygen Delivery Method Room Air 01/16/25 08:39 Temperature 98.8 F 01/16/25 08:39 Pulse Rate 51 L 01/16/25 08:39 Respiratory Rate 20 01/16/25 08:39 Blood Pressure 140/65 01/16/25 08:39 Pulse Oximetry 99 01/16/25 08:39 Oxygen Delivery Method Room Air 01/16/25 08:39 Medical Decision Making MDM Narrative Medical decision making narrative: 19-year-old female to the emergency department with chief complaint of typical episode of cyclic vomiting syndrome. Vital stable, the patient is afebrile. Her abdominal examination is benign. She appears well-hydrated. I offered labs and further workup for the patient and she declined stating she has been worked up dozens of times in the past and knows what works for her. We discussed medications that have worked for her in the past and she requested a cocktail of Phenergan, Zofran, Benadryl, Toradol. She reports typically of given these together she is able to tolerate fluids and be discharged home. These medications were ordered for the patient. Shortly after receiving the medications the patient reported she felt much improved and requested immediate discharge. Work note was given. She did not request any prescriptions, reports she has oral meds at home. Return precautions were discussed. All questions were answered. The patient was discharged home. Medical Records Medical records reviewed: Yes I reviewed the patient's medical records Discharge Plan Discharge Chief Complaint: Nausea/Vomiting/Diarrhea Clinical Impression: Cyclical vomiting Patient Disposition: Home, Self-Care Time of Disposition Decision: 08:58 Condition: Good Mode of Transportation: Private Vehicle Print Language: Romanian Instructions: Acute Nausea and Vomiting (ED) Additional Instructions: Call the office of your primary care doctor to arrange for follow-up within the above-stated timeframe. Your ED visit was focused on your acute issue and does not replace primary care. You should review your labs, imaging, and diagnoses from this ED visit with your primary care physician. There may be non-emergent/ incidental findings that need further evaluation. You should review your vital signs including blood pressure with your PCP. If you were prescribed medications you should discuss possible side-effects and drug interactions with your pharmacist. Call 911 or go to the nearest Emergency Department if you develop any new or worsening symptoms. Seek immediate medical attention if you develop: worsening abdominal pain, new or worsening nausea, new or worsening vomiting, new or worsening diarrhea, chest pain, shortness of breath, pain with urination, problems urinating, fever, chills, weakness, or any new or worsening symptoms. Referrals: Modesta Chand NP [Primary Care Provider] - 1 week Discharge Date/Time: 01/16/25 09:05
[2025-01-16] MEDS: PROMETHAZINE HCL 25 MG/ML VIAL IM (08:56)
[2025-01-16] MEDS: KETOROLAC TROMETHAMINE 30 MG/ML VIAL IM (08:56)
[2025-01-16] MEDS: DIPHENHYDRAMINE HCL 50 MG/ML VIAL 25 MG IM (08:56)
[2025-01-16] MEDS: ONDANSETRON 4 MG RAPDIS TABLET SL (08:57)
== END 2025-01-16 09:05 | disposition home or self-care (01) ==
PROVIDERS: Emergency Provider Student in an Organized Health Care Education/Training Program; PCP Nurse Practitioner Family
DX: R11.15 Cyclical vomiting syndrome unrelated to migraine (principal); F17.200 Nicotine dependence, unspecified, uncomplicated; Z79.899 Other long term (current) drug therapy
CPT/HCPCS: 96372; 99284; J1200; J1885; J2550; Q0162

== ENCOUNTER 2025-01-17 14:03 | Emergency (ER) | payer OTHER, SELFPAY ==
[2025-01-17 14:05] VITALS: BP 130/89; PULSE 63; TEMP 36.7; O2SAT 100; BMI 34.8
--- NOTE | 2025-01-17 14:09 | ED_ITS ---
HPI HPI - General Adult General Chief complaint: Nausea/Vomiting/Diarrhea Stated complaint: FALL VOMITTING BLOOD Time Seen by Provider: 01/17/25 14:04 Source: patient Mode of arrival: ambulance History of Present Illness HPI narrative: Patient is a 19-year-old female who presents to the emergency department by ambulance for nausea and vomiting. Patient is well-known to this emergency department for history of POTS and cyclic vomiting. She she has been vomiting for several days. She was seen in this emergency department yesterday and then apparently went to [facility] emergency department last night after a fall downstairs where she was evaluated. She returns to this emergency department today because she states she saw blood in her emesis today. She has had no fevers, cough, congestion. No concern for . Related Data Previous Rx's ?Medication ?Instructions ?Recorded ondansetron 4 mg disintegrating 4 mg PO Q6H PRN nausea and 01/17/25 tablet vomiting #12 tabs potassium chloride 20 mEq 20 meq PO BID 3 days #6 tabs 01/17/25 tablet,extended release(part/cryst) promethazine 25 mg tablet 25 mg PO Q6H PRN nausea and 01/17/25 vomiting #12 tabs Allergies Allergy/AdvReac Type Severity Reaction Status Date / Time haloperidol (From Haldol) Allergy Severe icthy Verified 01/16/25 08:39 metoclopramide (From Reglan) AdvReac Intermediate facial Verified 01/16/25 08:39 drooping Opioid HPI Opioid Management Most Recent Opioid Data: Last Pain Scale 4 01/16/25 08:56 01/16/25 Ur Phencyclidine Scrn Negative (NEGATIVE) 10/26/24 14:00 09/29 08/21 Review of Systems ROS Constitutional Denies: fever or chills Ears, nose, mouth, and throat Denies: throat pain or nasal congestion Cardiovascular Denies: chest pain Respiratory Denies: shortness of breath or cough Gastrointestinal Reports: abdominal pain, nausea and vomiting; Denies: diarrhea Musculoskeletal Denies: back pain or neck pain Integumentary/Breast Denies: rash Neurological Denies: numbness in extremities or weakness in extremities Hematologic/Lymphatic Denies: easy bruising or easy bleeding [facility] Medical History (Updated 01/17/25 @ 15:30 by KALLI Bhagat) Leukocytosis ?D72.829 - Elevated white blood cell count, unspecified (ICD-10) Bipolar 1 disorder ?F31.9 - Bipolar disorder, unspecified (ICD-10) Migraine ?G43.909 - Migraine, unspecified, not intractable, without status migrainosus (ICD-10) POTS (postural orthostatic tachycardia syndrome) ?G90.A - Postural orthostatic tachycardia syndrome [POTS] (ICD-10) Cyclic vomiting syndrome ?R11.15 - Cyclical vomiting syndrome unrelated to migraine (ICD-10) Cyclic vomiting syndrome ?R11.15 - Cyclical vomiting syndrome unrelated to migraine (ICD-10) Fall ?W19.XXXA - Unspecified fall, initial encounter (ICD-10) Fracture of tibial plateau ?S82.143A - Displaced bicondylar fracture of unspecified tibia, initial encounter for closed fracture (ICD-10) Surgical History History of appendectomy ?Z90.49 - Acquired absence of other specified parts of digestive tract (ICD- 10) Family History Father Family history of stroke Family history of diabetes mellitus Family history of cancer Family history of hypertension Family history of CHF (congestive heart failure) Grandfather Family history of stroke Grandmother Family history of myocardial infarction Mother Family history of diabetes mellitus Family history of cancer Social History Within the past year, how often did you have a drink containing alcohol: never Score interpretation: A score less than 3 is consistent with normal alcohol consumption. Smoking status: Current every day smoker Non-prescribed substance use: cannabis (any form) Little interest or pleasure in doing things: not at all Feeling down, depressed, or hopeless: not at all Do you think of yourself as: straight/heterosexual Gender Identity: female Exam Narrative Exam Narrative: Gen.: Awake, alert, in no distress Head: Normocephalic, atraumatic ENT: Moist mucous membranes Respiratory: No respiratory distress, lungs clear bilaterally Cardio: Regular rate and rhythm Gastrointestinal: Abdomen is soft, nondistended and nontender to palpation Extremities: Moves extremities equally Psych: Normal mood and affect Neuro: No focal neuro deficit Skin: Warm, dry, intact Constitutional Vital Signs, click to edit/add: Last Vital Signs Temp 98.0 F 01/17/25 14:05 Pulse 63 01/17/25 14:05 Resp 18 01/17/25 14:05 BP 130/89 01/17/25 14:05 Pulse Ox 100 01/17/25 14:05 O2 Del Method Room Air 01/17/25 14:05 Course Vital Signs Vital signs: Vital Signs Temperature 98.0 F 01/17/25 14:05 Pulse Rate 63 01/17/25 14:05 Respiratory Rate 18 01/17/25 14:05 Blood Pressure 130/89 01/17/25 14:05 Pulse Oximetry 100 01/17/25 14:05 Oxygen Delivery Method Room Air 01/17/25 14:05 Temperature 98.0 F 01/17/25 14:05 Pulse Rate 63 01/17/25 14:05 Respiratory Rate 18 01/17/25 14:05 Blood Pressure 130/89 01/17/25 14:05 Pulse Oximetry 100 01/17/25 14:05 Oxygen Delivery Method Room Air 01/17/25 14:05 Medical Decision Making MDM Narrative Medical decision making narrative: IV was established, records from [facility] were obtained from last night showing the patient had CTs of the head, C-spine, chest abdomen and pelvis. There was evidence of a very small pneumomediastinum on the CT. Repeat x-rays show no evidence of significant pneumomediastinum or other abnormality on x-rays today. Patient with mild leukocytosis and hypokalemia which is consistent with her previous workups. She was given IV fluids, Compazine, Benadryl, Toradol. Before the patient could be p.o. challenged or given potassi um, she requested that she have her discharge paperwork. Oral potassium was sent home with the patient and she was given prescriptions of Phenergan, Zofran and potassium for home. She is hemodynamically stable and declined further medications or workup. SUPERVISED APC VISIT, PHYSICIAN ATTESTATION: Based on the medical record the care appears appropriate. ? Medical Records Medical records reviewed: Yes I reviewed the patient's medical records Lab Data Lab results reviewed: Yes I reviewed the patient's lab results Labs: Lab Results 01/17/25 Range/Units 14:22 WBC 14.1 H (4.0-11.0) 10^3/uL RBC 5.52 H (4.20-5.40) 10^6/uL Hgb 15.7 (12.0-16.0) g/dL Hct 46.8 (36.0-48.0) % MCV 84.8 (81.0-99.0) fL MCH 28.4 (26.7-34.0) pg MCHC 33.5 (29.9-35.2) g/dL RDW 12.7 (11.0-15.0) % Plt Count 346 (150-450) 10^3/uL MPV 10.4 (9.5-13.5) fL Neut % (Auto) 81.9 H (43.0-75.0) % Lymph % (Auto) 11.3 L (20.5-60.0) % [place] % (Auto) 6.2 (1.7-12.0) % Eos % (Auto) 0.1 L (0.9-7.0) % Baso % (Auto) 0.1 L (0.2-2.0) % Neut # (Auto) 11.6 H (1.4-6.5) 10^3/uL Lymph # (Auto) 1.6 (1.2-3.8) 10^3/uL [place] # (Auto) 0.9 H (0.3-0.8) 10^3/uL Eos # (Auto) 0.0 (0.0-0.7) 10^3/uL Baso # (Auto) 0.0 (0.0-0.1) 10^3/uL Abs Immat Gran (auto) 0.05 H (0.00-0.03) 10^3/uL Imm/Tot Granulo (auto) 0.4 (0.0-0.5) % PT 11.4 (9.0-11.6) sec INR 1.08 Sodium 143 (136-145) mmol/L Potassium 2.8 L* (3.5-5.1) mmol/L Chloride 98 (98-107) mmol/L Carbon Dioxide 30.4 (21.0-32.0) mmol/L Anion Gap 17.4 BUN 28.0 H (7.0-18.0) mg/dL Creatinine 1.44 H (0.55-1.02) mg/dL Est GFR ( Amer) 56 L (>=60 mL/min/1.73m^2) Est GFR (Non-Af Amer) 46 L (>=60 mL/min/1.73m^2) BUN/Creatinine Ratio 19.4 Glucose 124 H (74-106) mg/dL Lactate 2.9 H* (0.4-2.0) mmol/L Calcium 10.4 H (8.5-10.1) mg/dL Magnesium 2.4 (1.8-2.4) mg/dL Total Bilirubin 0.9 (0.2-1.0) mg/dL AST 30 (15-37) U/L ALT 60 H (14-59) U/L Alkaline Phosphatase 86 (46-116) U/L Total Protein 9.4 H (6.4-8.2) g/dL Albumin 5.0 (3.4-5.0) g/dL Globulin 4.4 g/dL Albumin/Globulin Ratio 1.1 Lipase 21.0 (16.0-77.0) U/L Serum HCG, Qual Negative (NEGATIVE) Imaging Data Abdominal x-ray: Attestation: I have reviewed the pertinent imaging results. Discharge Plan Discharge Chief Complaint: Nausea/Vomiting/Diarrhea Clinical Impression: Cyclical vomiting, Abdominal pain, Acute hypokalemia Patient Disposition: Home, Self-Care Time of Disposition Decision: 15:29 Condition: Good Prescriptions / Home Meds: New promethazine 25 mg tablet 25 mg PO Q6H PRN (Reason: nausea and vomiting) Qty: 12 0RF ondansetron 4 mg tablet,disintegrating 4 mg PO Q6H PRN (Reason: nausea and vomiting) Qty: 12 0RF potassium chloride 20 mEq tablet,ER particles/crystals 20 meq PO BID 3 Days Qty: 6 0RF Print Language: Maldivian Instructions: Hypokalemia (ED), Acute Nausea and Vomiting (ED) Referrals: Modesta Chand, TRANSACTIONAL ATTORNEY [Primary Care Provider] - 1 week
[2025-01-17 14:30] LABS: Basophils Percent Auto 0.1 % (0.2-2.0); Eosinophils Percent Auto 0.1 % (0.9-7.0); Hematocrit 46.8 % (36.0-48.0); Hemoglobin 15.7 g/dL (12.0-16.0); Immature Granulocytes Abs Auto 0.05 10^3/uL (0.00-0.03); Immature Granulocytes Pct Auto 0.4 % (0.0-0.5); Lymphocytes Absolute Auto 1.6 10^3/uL (1.2-3.8); Lymphocytes Percent Auto 11.3 % (20.5-60.0); Mean Corpuscular HGB Conc 33.5 g/dL (29.9-35.2); Mean Corpuscular Hemoglobin 28.4 pg (26.7-34.0); Mean Corpuscular Volume 84.8 fL (81.0-99.0); Mean Platelet Volume 10.4 fL (9.5-13.5); Monocytes Absolute Auto 0.9 10^3/uL (0.3-0.8); Monocytes Percent Auto 6.2 % (1.7-12.0); Neutrophils Absolute Auto 11.6 10^3/uL (1.4-6.5); Neutrophils Percent Auto 81.9 % (43.0-75.0); Platelet Count 346 10^3/uL (150-450); Red Blood Count 5.52 10^6/uL (4.20-5.40); Red Cell Distribution Width 12.7 % (11.0-15.0); White Blood Count 14.1 10^3/uL (4.0-11.0)
[2025-01-17] MEDS: 0.9 % SODIUM CHLORIDE 1,000 ML 1000 ML IV (14:30)
[2025-01-17] MEDS: PROCHLORPERAZINE 10 MG/2 ML VIAL IV (14:40)
[2025-01-17] MEDS: PANTOPRAZOLE SODIUM 40 MG VIAL IV (14:40)
[2025-01-17 14:41] LABS: HCG Qualitative NEGATIVE (NEGATIVE); Internal Control Within Normal Limits
[2025-01-17 14:42] LABS: INR 1.08; Prothrombin Time 11.4 sec (9.0-11.6)
[2025-01-17 14:44] LABS: Alanine Aminotransferase 60 U/L (14-59); Albumin Globulin Ratio 1.1; Alkaline Phosphatase 86 U/L (46-116); Anion Gap 17.4; Aspartate Amino Transferase 30 U/L (15-37); BUN Creatinine Ratio 19.4; Bilirubin Total 0.9 mg/dL (0.2-1.0); Calcium 10.4 mg/dL (8.5-10.1); Carbon Dioxide 30.4 mmol/L (21.0-32.0); Chloride 98 mmol/L (98-107); Estimated GFR (African America 56 (>=60 mL/min/1.73m^2); Estimated GFR (Non-African Ame 46 (>=60 mL/min/1.73m^2); Globulin 4.4 g/dL; Glucose 124 mg/dL (74-106); Magnesium 2.4 mg/dL (1.8-2.4); Sodium 143 mmol/L (136-145); Total Protein 9.4 g/dL (6.4-8.2)
[2025-01-17 14:49] LABS: Lactate/Lactic Acid 2.9 mmol/L (0.4-2.0); Potassium 2.8 mmol/L (3.5-5.1)
== END 2025-01-17 15:43 | disposition home or self-care (01) ==
PROVIDERS: Physician Assistant; Emergency Provider Emergency Medicine; PCP Nurse Practitioner Family
DX: R11.15 Cyclical vomiting syndrome unrelated to migraine (principal); R10.84 Generalized abdominal pain; E87.6 Hypokalemia; G90.A Postural orthostatic tachycardia syndrome [POTS]
CPT/HCPCS: 36415; 74022; 80053; 80307; 81001; 83605; 83690; 83735; 84703; 85025; 85610; 96361; 96374; 96375; 99285; J0780

== ENCOUNTER 2025-01-20 10:14 | Emergency (ER) | payer OTHER, SELFPAY ==
[2025-01-20 10:18] VITALS: BP 134/98; PULSE 106; TEMP 36.9; O2SAT 100; BMI 34.8
--- OUTSIDE RECORDS SUMMARY | 2025-01-20 10:28 | XMS_ITS | CCD ---
Author Organization [facility] CliniSyma Care Team Providers Care Pecan Huller Name Role Phone Mere Simpson Unavailable Unavailable Mere Simpson Unavailable Unavailable WILKERSON-LUIS EDUARDO, AIMEE M Unavailable Unavail able Bumagina, Nilay Unavailable Unavailable SPLAWSKI, DALI B Unavailable Unavailable SPLAWSKI, DALI B Unavailable Unavailable Bumagina, Nilay Unavailable Unavailable SPLAWSKI, DALI B Unavailable Unavailable Bumagina, Nilay Unavailable Unavailable Bumagina, Nilay Unavailable Unavailable SPLAWSKI, DALI B Unavailable Unavailable Bumagina, Nilay Unavailable Unavailable Bumagina, Nilay Unavailable Unavailable Mere Simpson T Unavailable Unavailable Bumagina, Nliay Unavailable Unavailable Bumagina, Nilay Unavailable Unavailable SPLAWSKI, DALI B Unavailable Unavailable Bumagina, Nilay Unavailable Unavailable Bumagina, Nilay Unavailable Unavailable WILKERSON-LUIS EDUARDO, AIMEE M Unavailable Unavail able SPLAWSKI, DALI B Unavailable Unavailable Aktay, Atiye Jeevan Unavailable Unavailable Bumagina, Nilay Unavailable Unavailable SPLAWSKI, DALI B Unavailable Unavailable Bumagina, Nilay Unavailable Unavailable Mere Simpson T Unavailable Unavailable Bumagina, Nilay Unavailable Unavailable Bumagina, Nilay Unavailable Unavailable SPLAWSKI, DALI B Unavailable Unavailable Bumagina, Nilay Unavailable Unavailable Bumagina, Nilay Unavailable Unavailable LoParo, Radha Magy Unavailable Unavaila ble LoParo, Radha Magy Unavailable Unavaila ble LoParo, Radha Magy Unavailable Unavaila ble Bumagina, Nilay Unavailable Unavailable Unavailable Primary Care Provider [facility] Primary Care Provider DO Art Bianchi Emergency Provider DO Ender Donovan Emergency Provider Tupa, DO Ravi M Emergency Provider Matthew DO Gilson Emergency Provider MILY Chand Attending Pr ovider MD Brennen Britt Attending Provider [facility] Prov ider [facility] Primary Care Provider [phone] FRANKY Rivera Emergency Provider MD Colten Fry Jr Emergency Provider DO Matthew Gilson Emergency Provider Lindshaheen, DO Gregorio Admit Provider Aurelio DO Gregorio Attending Provider [facility] Prov ider FRANKY Rivera Emergency Provider [phone] MD Colten Fry Jr Emergency Provider DO Matthew Gilson Emergency Provider Aurelio, DO Gregorio Admit Provider Aurelio, DO Gregorio Attending Provider MILY Chand Attending Pr ovider Tugisselle, DO VoRavi M Emergency Provider [facility] Prov ider FRANKY Rivera Emergency Provider MD Colten Fry Jr Emergency Provider DO Matthew Gilson Emergency Provider Aurelio DO Gregorio Admit Provider Aurelio, DO Gregorio Attending Provider MILY Chand Attending Pr ovider Tugisselle, DO Ravi M Emergency Provider DO Art Bianchi Emergency Provider [phone] DO Robert Bolanos Emergency Provider [facility] Primary Care Provider MD Dixon Newberry Emergency Provider [phone] [facility] Primary Care Prov ider DO Federico Randolph Emergency Provider KATE Damian Emergency Provider [phone] MD Eliana Bautista Admit Provider MD Eliana Bautista Attending Provider [phone] [address], DR VU Primary Care Unavailable DALIA ., AUSTIN Admitting Unavailable DALIA ., AUSTIN Attending Unavailable DALIA ., [place]USTIN Consulting Unavailable DIAB ., IRWIN Admitting Unavailable DIAB ., IRWIN Attending Unavailable SANDRO, DR VU Primary Care Unavailable KIA ARVIZU Consulting Unavailable DIAB ., IRWIN Consulting Unavailable Colten Miller Unavailable [facility] Primary Care Provider MILY Chand Attending Pr ovider MD Colten Miller Attending Provider [phone] [facility] Primary Care Provider DO Ravi Arguello Emergency Provider [phone] MODESTA ARCHIBALD Primary Care Physician [facility] Primary Care Provider MD Jacinto Benitez Emergency Provider Cresencio Abel Attending Unavailable MODESTA ARCHIBALD Primary Care Unavailable MODESTA ARCHIBALD Primary Care Unavailable August Beck Attending Unavailable MODESTA ARCHIBALD Primary Care Unavailable DO Isaak Francis Attending Unavailable [facility] Primary Care Provider MD Ania Watson Emergency Provider [phone] MODESTA ARCHIBALD Primary Care Unavailable August Beck Attending Unavailable Cresencio Abel Attending Unavailable MODESTA ARCHIBALD Primary Care Unavailable [facility] Primary Care UnavailJacinto Jang Admitting Unavailable Jacinto Benitez Attending Unavailable Rd Brown Admitting Unavailable Rd Brown Attending Unavailable [facility] Primary Care UnavailAnia Clark Attending Unavailable [facility] Primary Care UnavailAnia Clark Admitting Unavailable MODESTA CHAND Primary Care Physician August Beck Attending Unavailable August Beck Attending Unavailable August Beck Attending Unavailable Allergies Allergy Classification Reported Allergen(s) Allergy Type Date of Onset Reaction(s) Facility (12 sources) Haloperidol; Translations: [Haloperidol] Drug Allergy 3 Unknown Reaction, facial droop [facility] (14 sources) Metoclopramide; Translations: [Metoclopramide] Drug Allergy 3 Unknown (qualifier value) [facility] (5 sources) Haloperidol; Translations: [Haldol] Drug Allergy [facility] (5 sources) Iothalamate; Translations: [Reglan] Drug Allergy [facility] Medications Current Medications Medication Drug Class(es) Dates Sig (Normalized) Sig (Original) acetaminophen 325 mg / HYDROcodone bitartrate 5 mg oral tablet (20 sources) Opioid Agonist Start: 03-13-2024 End: 03-16-2024 [place] 325 mg-5 mg oral tablet 1 tab(s), Oral, q6hr for pain for 3 day(s), 7 tab(s), Refill(s) 0, [facility]/pharmacy #[id number], 160, cm, 03/13/24 17:38:00 EDT, Height/Length Dosing, [...] tablet by mouth every six hours Hydrocodone-Acetaminophen ([place]) 5-325 mg tablet Discontinued 1 TAB PO Q6H 6 2 December 15, 2019 December 31, 2019 1:37pm Start: 12-15-2019 End: 12-31-2019 Start: 04-20-2019 End: 05-05-2019 take 1 tablet by mouth every six hours Hydrocodone-Acetaminophen Discontinued 1 TAB PO Q6H 20 April 20, 2019 May 05, 2019 8:42pm Start: 04-20-2019 End: 05-05-2019 Start: 02-19-2019 End: 03-08-2019 take 1 tablet by mouth twice daily Hydrocodone-Acetaminophen ([place]) 5-325 mg tablet Discontinued 1 TAB PO [...] every 4-6 hrs for 5 days SANTO: [id number] Apr, Active take 1 tablet by kathe [...] 05, 2018 10:48pm Start: 03-23-2018 End: 04-05-2018 cyclobenzaprine hydrochloride 5 mg oral tablet (1 source) Muscle Relaxant Start: 01-16-2025 End: 01-23-2025 take 1 tablet by mouth three times daily cyclobenzaprine 5 mg Tab 5 mg = 1 tab(s), Oral, TID, X 7 day(s), # 21 tab(s), Refills(s) 0, Pharmacy: [facility]/pharmacy #[id number], 157, cm, 01/16/25 17:56:00 EST, Height/Length Dosing, 95, kg, 01/16/25 17:56:00 EST, Weight Dosing Start Date: 01/16/25 Stop Date: 01/23/25 Status: Ordered Etonogestrel (3 sources) Progestin Nexplanon Active methocarbamol 500 mg oral tablet (2 sources) Muscle Relaxant Start: 03-13-2024 End: 03-16-2024 take 1 tablet by mouth three times daily Robaxin 500 mg Tab 500 mg = 1 tab(s), Oral, TID, X 3 day(s), # 9 tab(s), Refills(s) 0, Pharmacy: [facility]/pharmacy #[id number], 160, cm, 03/13/24 17:38:00 EDT, Height/Length Dosing, 95.5, kg, 03/13/24 17:38:00 EDT, Weight Dosing Start Date: 03/13/24 Stop Date: 03/16/24 Status: Ordered naproxen 500 mg oral tablet (20 sources) Nonsteroidal Anti-inflammatory Drug Start: 03-13-2024 take 1 tablet by mouth twice daily as needed for pain naproxen 500 mg Tab 500 mg = 1 tab(s), Oral, BID, PRN Pain, with food, # 20 tab(s), Refills(s) 0, Pharmacy: [facility]/pharmacy #[id number], 157, cm, 01/16/25 17:56:00 EST, Height/Length Dosing, 95, kg, 01/16/25 17:56:00 EST, Weight Dosing Start Date: 01/16/25 Status: Ordered Start: 02-19-2019 End: 03-08-2019 take [...] Ondansetron Discontinued 4 MG PO Q8H 7 2 May 14, 2022 12:00am August 18, 2022 [...] tablet,disintegrating Discontinued 8 MG PO Q8H 9 3 January 03, 2018 1:00am January 17, 2018 [...] days PRN Active promethazine hydrochloride 12.5 mg oral tablet (20 sources) Phenothiazine Start: 01-16-2025 take 1 tablet by mouth every six hours as needed for nausea promethazine 12.5 mg oral tablet 12.5 mg = 1 tab(s), Oral, q6hr, PRN for nausea/vomiting, # 10 tab(s), Refills(s) 0, Pharmacy: [facility]/pharmacy #[id number], 157, cm, 01/16/25 17:56:00 EST, Height/Length Dosing, 95, kg, 01/16/25 17:56:00 EST, Weight Dosing Start Date: 01/16/25 Status: Ordered Start: 07-30-2024 take 1 tablet by kathe th every eight hours as needed for nausea promethazine 12.5 mg oral tablet 12.5 mg = 1 tab(s), Oral, q8hr, PRN as needed for nausea/vomiting, second line, # 10 tab(s), Refills(s) 0, Pharmacy: [facility]/pharmacy #[id number], 157, cm, 07/30/24 19:37:00 EDT, Height/Length Dosing, 96.1, kg, 07/30/24 19:37:00 EDT, Weight Dosing Start Date: 07/30/24 Status: Ordered Start: 07-30-2024 take 12.5 mg rectal route every eight hours as needed for nausea Phenergan 12.5 mg Supp 12.5 mg = 1 supp, Rectal, q8hr, PRN as needed for nausea/vomiting, 3rd line, # 6 EA, Refills(s) 0, Pharmacy: [facility]/pharmacy #[id number], 157, cm, 07/30/24 19:37:00 [...] Nausea/Vomiting, # 6 EA, Refills(s) 0, Pharmacy: [facility]/pharmacy #[id number], 160, cm, 03/13/24 17:38:00 [...] 02-09-2022 End: 03-08-2022 Promethazine Discontinued 25 MG ID Q6H February 09, 2022 12:00am March 08, 2022 8:15pm Start: 09-30-2021 End: 03-08-2022 Promethazine Discontinued 12 .5 MG PO Three times daily 15 5 March 13th, 2022 1:00am March 08, 2022 8:15pm 3 doses during day; last dose no later than 4 hr before bedtime Start: 09-30-2021 End: 02-06-2022 Promethazine Discontinued 12 .5 MG PO Twice daily September 30, 2021 12:00am February 06, 2022 11:25am 3 doses during day; last dose no later than 4 hr before bedtime Start: 09-30-2021 End: 10-08-2021 Promethazine Discontinued 12 .5 MG ID Once September 30, 2021 12:00am October 08, [...] (Phenergan) 25 mg suppository Discontinued 25 MG ID Q4H May 10, 2019 12:00am September 03, 2019 8:25pm Start: 03-08-2019 End: 03-23-2019 take 25 mg by mouth every four to six hours Promethazine Discontinued 25 MG PO EVERY 4-6 HOURS March 08, 2019 12:00am March 23, 2019 5:49pm Start: 02-13-2018 End: 03-13-2018 Promethazine (Phenergan) 25 mg suppository Discontinued 25 MG ID Q8H February 13, 2018 12:00am March 13, 2018 10:44pm Start: 01-03-2018 End: 10-16-2018 Promethazine Discontinued 25 MG ID Q6H April 23, 2018 6:04pm October 16, [...] 2022 8:05pm Zofran ODT 4 mg Tab-Dis (2 sources) Start: 07-30-2024 take 1 tablet by mouth every eight hours as needed for nausea Zofran ODT 4 mg Tab-Dis 4 mg = 1 tab(s), Oral, q8hr, PRN Nausea/Vomiting, # 16 tab(s), Refills(s) 0, Pharmacy: [facility]/pharmacy #[id number], 157, cm, 07/30/24 19:37:00 EDT, Height/Length Dosing, 96.1, kg, 07/30/24 19:37:00 EDT, Weight Dosing Start Date: 07/30/24 Status: Ordered Completed/Discontinued Medications Medication Drug Class(es) Dates Sig (Normalized) Sig (Original) [id number] 200 actuat albuterol 0.09 mg/actuat metered dose [...] pk PO as directed on dose pack 6 January 07, 2020 1:00am February 19, 2020 [...] / neomycin 3.5 mg/ml / polymyxin [id number] unt/ml otic suspension (20 sources) Aminoglycoside Antibacterial, Polymyxin-class Antibacterial, Corticosteroid Start: 10-31-2017 End: 12-21-2017 Jkoeujtf-Bwmzwvcre-Cg Discontinued 3 DROPS OTIC Three times daily [...] Dopamine-2 Receptor Antagonist Start: 08-20-20 End: 08-22-20 take 1 tablet by mouth every six hours Metoclopramide Hcl (Reglan) 10 mg tablet Discontinued 10 MG PO Q6H 5 3 August 20, 2022 12:00am August 22, 2022 2:48pm mirtazapine 15 mg oral tablet (20 sources) Start: 12-11-19 End: 01-12-20 21 take 15 mg by mouth once daily Mirtazapine Discontinued 15 MG PO Daily December 11, 2019 1:00am January 12, 2021 1:35pm Xbtfrech-Kty-Khhqsbk Fumarate (Multi Vitamin) 9 mg iron/15 mL Liquid (14 sources) Start: 09-30-20 19 End: 07-19-20 21 take 1 tablet by mouth once daily Wlsmvtvn-Jap-Qzuqzbo Fumarate (Multi Vitamin) 9 mg iron/15 mL Liquid Discontinued 1 TAB PO Daily September 29, 2019 11:00pm July 19, 2021 1:07pm Start: 09-30-2019 End: 07-19-2021 take 1 tablet by mouth once daily Lnagitvq-Scg-Toeqrft Fumarate (Multi Vitamin) 9 mg iron/15 mL [...] End: 03-13-2018 Oxymetazoline (Afrin (Oxymetazoline)) 0.05 % [place],Non-Aerosol Discontinued 2 SPRAY INTRANASAL Q12H December 23, [...] Potassium Discontinued 1000 MG PO Twice daily 28 July 31, 2018 12:00am August 10, 2018 9:50pm [...] take 1 tablet by mouth once daily Prenat.Vits,Noe,Kww-Srgu-Wvwcw Discontin ued 1 TAB PO Daily 60 February 06, 2022 1:00am March 08, 2022 8:15pm Vit No.611-Uihb-Bjlea ( Vitamin) 27 mg iron- 800 mcg tablet (14 sources) Start: 06-08-2022 End: 08-18-2022 take 1 tablet by mouth once daily Vit No.834-Fvol-Enrro ( Vitamin) 27 mg iron- 800 mcg tablet Discontinued 1 TAB PO Daily June 07, 2022 11:00pm August 18, 2022 11:33am Start: 06-08-2022 End: 08-18-2022 take 1 tablet by mouth once daily Vit No.616-Idag-Ovght ( Vitamin) 27 mg iron- 800 mcg tablet Discontinued 1 TAB PO Daily June 08, 2022 12:00am August 18, 2022 12:33pm Start: 06-08-2022 take 1 tablet by kathe th once daily Vit No.148-Ydqf-Lshhy ( Vitamin) 27 mg iron- 800 mcg [...] iron deficiency anemias] Episodic E Codes: Fall (2 sources) Fall (on) (from) other stairs and steps, [...] Translations: [Abrasion of unspecified ear, initial encounter] Onset: 5 11-19-2019 Episodic Unclassified (1 source) Tachycardia, unspecified [...] / K92.0(ICD-10) Onset: 7 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 All CT scans at this facility use dose modulation, iterative reconstruction, and/or weight based dosing when appropriate to reduce radiation dose to as low as reasonably achievable. Ordering Provider: Rashaad Albrecht FINAL REPORT Dictated: 01/17/2025 9:15 am Anselmo Dolan MD Signed (Electronic Signature): 01/17/2025 9:15 am Signed by: Anselmo Dolan MD Transcribed by: KIRA Technologist: FABIÁN [facility] CT Chest w/ Contraston 01-17 CT Chest w/ Contrast Exam Date/Time: 01/16/2025 18:35 EST Reason for Exam: CHEST TRAUMA, MOD-SEVERE;Trauma Report IMPRESSION: VERY SMALL VOLUME PNEUMOMEDIASTINUM, PRESUMABLY FROM BAROTRAUMA. NO DISPLACED FRACTURE OR OTHER SIGNIFICANT POSTTRAUMATIC COMPLICATION IDENTIFIED. EXAM: CT Chest w/ Contrast, CT Abdomen/Pelvis w/ Contrast, CT Spine Thoracic, CT Spine Lumbar DATE: 01/16/2025 6:01 PM CLINICAL HISTORY: Trauma, CHEST TRAUMA, MOD-SEVERE. COMPARISON: Chest CT including essentially the entire abdomen 03/15/2024. TECHNIQUE: Spiral imaging was obtained of the chest, abdomen and pelvis after the infusion of approximately 130 mL of Isovue 300 contrast. Routine multiplanar reformatted reconstructions were performed; including dedicated reconstructions of the thoracic and lumbar spine. All CT scans at this facility use dose modulation, iterative reconstruction, and/or weight based dosing when appropriate to reduce radiation dose to as low as reasonably achievable. Unless otherwise stated, incidental findings identified in this report do not require routine follow-up imaging. CHEST CT FINDINGS: Lungs and pleura: No focal consolidation, pleural effusion, or pneumothorax. Mediastinum and lymph nodes: Very small volume pneumoperitoneum, presumably from barotrauma. No organized hematoma, hemorrhage, fluid, pathologically enlarged mediastinal, hilar, or axillary lymph nodes. Heart: Not enlarged. No significant coronary artery calcifications identified, within the limits of cardiac motion artifact. No significant pericardial effusion. Thoracic aorta: Normal in caliber without significant atherosclerotic plaquing. There is no dissection. Pulmonary arteries: Normal in caliber without central filling defects identified to suggest significant pulmonary emboli. Thyroid: Unremarkable. Esophagus: Unremarkable. Musculoskeletal: No acute osseous findings identified. ABDOMEN AND PELVIS CT FINDINGS: Liver: Mildly enlarged with moderate fatty infiltration. No suspicious mass or lesion. Report Biliary: The gallbladder is unremarkable. No abnormal biliary ductal dilatation. Pancreas: No suspicious mass, organized fluid collection, surrounding inflammation, or abnormal pancreatic ductal dilatation. Spleen: Unremarkable. Adrenals: Unremarkable. Kidneys: No hydronephrosis, significant urinary tract calculi, or suspicious mass. GI tract: No abnormal dilation, wall thickening, or suspicious mass. The appendix is not confidently identified, without findings to suggest acute appendicitis. Lymph nodes: No pathologically enlarged lymph nodes. Vasculature: No aneurysm or dissection. Mesentery/peritoneum/retrop eritoneum: No ascites, organized fluid collection, inflammatory changes, or suspicious mass. Pelvis: The nearly decompressed urinary bladder, uterus, and adnexa appear within normal limits. Musculoskeletal: No acute osseous findings identified. THORACIC SPINE CT FINDINGS: There is no fracture, dislocation, evidence of instability, acute paraspinal soft tissue abnormalities, or significant degenerative changes. LUMBAR SPINE CT FINDINGS: There is no fracture, dislocation, evidence of instability, or acute paraspinal soft tissue abnormalities identified. Mild degenerative changes are present. Ordering Provider: Rashaad Albrecht FINAL REPORT Dictated: 01/17/2025 9:15 am Anselmo Dolan MD Signed (Electronic Signature): 01/17/2025 9:15 am Signed by: Anselmo Dolan MD Transcribed by: KIRA Technologist: [facility] CT Head or Brain w/o Contras ton 01-17-2025 CT Head or Brain w/o Contrast Exam Date/Time: 01/16/2025 18:30 EST Reason for Exam: HEAD TRAUMA, MOD-SEVERE;Other (please specify) Report IMPRESSION: NO ACUTE INTRACRANIAL PROCESS IDENTIFIED. EXAM: CT Head or Brain w/o Contrast DATE: 01/16/2025 6:01 PM CLINICAL HISTORY: HEAD TRAUMA, MOD-SEVERE. COMPARISON: 03/13/2024. TECHNIQUE: Routine. All CT scans at this facility use dose modulation, iterative reconstruction, and/or weight based dosing when appropriate to reduce radiation dose to as low as reasonably achievable. FINDINGS: There is no intracranial hemorrhage, mass effect, midline shift, extra-axial collection, evidence of hydrocephalus, skull fracture, or a recent ischemic infarct identified. There is no significant atrophy or white matter changes, for age. The mastoid air cells and visualized paranasal sinuses are essentially clear. Ordering Provider: Rashaad Albrecht FINAL REPORT Dictated: 01/17/2025 9:05 am Anselmo Dolan MD Signed (Electronic Signature): 01/17/2025 9:05 am Signed by: Anselmo Dolan MD Transcribed by: KIRA Technologist: [facility] CT Spine Cervical w/o Contra ston 01-17-2025 CT Spine Cervical w/o Contrast Exam Date/Time: 01/16/2025 18:31 EST Reason for Exam: NECK TRAUMA, DANGEROUS INJURY MECHANISM;Trauma Report IMPRESSION: SMALL VOLUME OF PNEUMOMEDIASTINUM (SEE CONCURRENT CHEST CT REPORT). NO FRACTURE OR EVIDENCE OF CERVICAL SPINE INJURY IDENTIFIED. EXAM: CT Spine Cervical w/o Contrast DATE: 01/16/2025 6:01 PM CLINICAL HISTORY: Trauma, NECK TRAUMA, DANGEROUS INJURY MECHANISM. COMPARISON: 03/13/2024. TECHNIQUE: Spiral unenhanced imaging was obtained of the cervical spine, with routine reconstructions performed. All CT scans at this facility use dose modulation, iterative reconstruction, and/or weight based dosing when appropriate to reduce radiation dose to as low as reasonably achievable. FINDINGS: The spine is visualized from the craniovertebral junction through the T1-T2 level. Small volume pneumomediastinum is present within the thoracic inlet and the right neck base (see concurrent chest CT report). There is no fracture, dislocation, significant degenerative changes or other paraspinal soft tissue abnormalities identified. Ordering Provider: Rashaad Albrecht FINAL REPORT Dictated: 01/17/2025 9:08 am Anselmo Dolan MD Signed (Electronic Signature): 01/17/2025 9:08 am Signed by: Anselmo Dolan MD Transcribed by: KIRA Technologist: FABIÁN [facility] ED Note-Physicianon 01-17-20 25 ED Note-Physician ED Note-Physician Basic Information Time Seen: Rashaad Albrecht PA-C. 01/16/2025 17:56 Chief Complaint pt states she tripped on a toy and fell down 14 steps. states protected head during fall and did not have any loc. c-collar in place by ems. pt reports low backpain and b/l knee pain. ems gave 4mg of zofran History of Present Illness A 19-year-old female reports emerged apartment after tripping off of a toy, and falling down 14 steps. Reports that she pricked her head during fall, but is having knee pain as well as lower back pain and belly pain. States that she is not taking blood thinners. She reports that she has been throwing up today, but this was before hand. She states was able to get up afterwards and walk around. Denies any loss consciousness. Review of Systems No other aggravating or relieving factors no other associated symptoms no other prior treatments or complaints. Family: Reviewed and noncontributory Social: lives at home Review of systems negative unless otherwise specified in the HPI. Physical Exam Vitals & Measurements T: 37.3 ???C(Oral) HR: 51(Monitored) RR: 12 BP: 135/105 SpO2: 98% HT: 157 cm WT: 95 kg BMI: 38.54 General: The patient appears well and in no apparent distress. Patient is resting comfortably on bed. Afebrile Skin: Warm, dry, no pallor noted. Head: Normocephalic, atraumatic Neck: No JVD Eye: PERRLA, EOMI ENT: Moist mucus membranes Cardiovascular: Regular rate normal peripheral perfusion. Radial pulses +2 bilaterally. Pedal pulses +2 bilaterally Respiratory: No respiratory distress no accessory muscle use no obvious audible wheezing. Lung sounds clear to auscultation Chest Wall: no deformity. No chest wall tenderness Musculoskeletal: normal ROM, no deformity, no swelling. GI: No obvious distention soft with mild tenderness of the abdomen. nondistended no guarding rebounding or rigidity. Pelvis stable Neurological: A&Ox4. moves all extremities equal strength and symmetry. No focal neurological defects.. Psychiatric: Cooperative and appropriate Medical Decision Making MEDICAL DECISION MAKING Number and Complexity of Problems Differential Diagnosis: [] [facility] Data External documents reviewed: [] My EKG interpretation: Reviewed My CT interpretation: Reviewed My X-ray interpretation: Reviewed My Ultrasound interpretation: [] Decision rules/scores evaluated: [] Discussed with: [] Treatment and Disposition ED Course: 19-year-old female reports emerged department after a fall. Reports that she fell down 14 steps. Denies any head injury. Reports the pain of her back as well as her abdomen as well as her knees. Exam patient is relatively benign. No acute distress. No bruising seen. Due to concerns of as well as mechanism we did do a full ordonez scan of the patient. CT scans are negative for any acute findings. Discussed with the patient. She was understanding. Lab work is benign as well. X-rays of knees were also negative. Patient treated with naproxen at home, as well as muscle relaxers for relief. Discussed return precautions. Follow-up with your primary care provider in 3 to 5 days. If symptoms worsen, do not improve, or new symptoms arise please report back to emergency department for further evaluation. The patient was understanding and agreeable to plan moving forward. Shared decision making: [] Code status: [] Assessment/Plan Abdominal contusion (S30.1XXA: Contusion of abdominal wall, initial encounter) Fall down steps (W10.8XXA: Fall (on) (from) other stairs and steps, initial encounter) Knee contusion (S80.00XA: Contusion of unspecified knee, initial encounter) Orders: cyclobenzaprine, 5 mg = 1 tab(s), Oral, TID, X 7 day(s), # 21 tab(s), Refills(s) 0, Pharmacy: [facility]/pharmacy #[id number], 157, cm, 01/16/25 17:56:00 EST, Height/Length Dosing, 95, kg, 01/16/25 17:56:00 EST, Weight Dosing ibuprofen, 800 mg = 1 tab(s), Tab, Oral, Once, Stop date 01/16/25 19:41:00 EST, STAT, Start date 01/16/25 19:41:00 EST, 01/16/25 19:41:00 EST morphine, 4 mg = 1 mL, Injection, IV Push, Once, Stop date 01/16/25 17:57:00 EST, STAT, Start date 01/16/25 17:57:00 EST, 01/16/25 17:57:00 EST naproxen, 500 mg = 1 tab(s), Oral, BID, PRN Pain, with food, # 20 tab(s), Refills(s) 0, Pharmacy: [facility]/pharmacy #[id number], 157, cm, 01/16/25 17:56:00 EST, Height/Length Dosing, 95, kg, 01/16/25 17:56:00 EST, Weight Dosing promethazine, 12.5 mg = 0.5 tab(s), Tab, Oral, Once, Stop date 01/16/25 19:41:00 EST, STAT, Start date 01/16/25 19:41:00 EST, 01/16/25 19:41:00 EST promethazine, 12.5 mg = 1 tab(s), Oral, q6hr, PRN for nausea/vomiting, # 10 tab(s), Refills(s) 0, Pharmacy: [facility]/pharmacy #[id number], 157, cm, 01/16/25 17:56:00 EST, Height/Length Dosing, 95, kg, 01/16/25 17:56:00 EST, Weight Dosing ABO/Rh ABO/Rh History Check Antibody Screen Basic Metabolic Panel Beta hCG Qual Blood Bank ID# CBC w/ Auto Diff CT Abdomen/Pelvis w/ Contrast CT Chest w/ Contrast CT Head or Brain w/o Cont (more content not included)... Normal [facility] Comment on above: Result Comment: Elec tronically Signed By: Rashaad Albrecht PA-C\.br\Date and Time Signed: 01/16/25 22:30 EST\.br\Electronically Co-Signed By: August Beck M.D.\.br\Date and Time Co-Signed: 01/17/25 08:51 EST XR Knee Complete 4+ Views [place] 01-17-2025 XR Knee Complete 4+ Views Left Exam Date/Time: 01/16/2025 18:41 EST Reason for Exam: Fall Report IMPRESSION: NO ACUTE OSSEOUS ABNORMALITY. EXAM: XR Knee Complete 4+ Views Left HISTORY: Knee pain TECHNIQUE: AP, lateral and oblique views of the knee obtained. COMPARISON: None available FINDINGS: No acute fracture or dislocation. Joint spaces of the knee are maintained. No knee joint effusion. Soft tissues are within normal limits. Ordering Provider: Rashaad Albrecht FINAL REPORT Dictated: 01/17/2025 9:06 am Carlos Araya DO Signed (Electronic Signature): 01/17/2025 9:06 am Signed by: Carlos Araya DO Transcribed by: KIRA Technologist: DES Edmond [facility]R Knee Complete 4+ Views Right Exam Date/Time: 01/16/2025 18:41 EST Reason for Exam: Fall Report IMPRESSION: NO ACUTE OSSEOUS ABNORMALITY. EXAM: XR Knee Complete 4+ Views Right HISTORY: Knee pain TECHNIQUE: AP, lateral and oblique views of the knee obtained. COMPARISON: None available FINDINGS: No acute fracture or dislocation. Joint spaces of the knee are maintained. No knee joint effusion. Postsurgical changes of the proximal tibia. Soft tissues are within normal limits. Ordering Provider: Rashaad Albrecht FINAL REPORT Dictated: 01/17/2025 9:06 am Carlos Araya DO Signed (Electronic Signature): 01/17/2025 9:06 am Signed by: Carlos Araya DO Transcribed by: KIRA Technologist: DES Normal [facility] ABO/Rhon 01-16-2025 ABO/Rh Positive Invalid Interpretation Code [facility] Comment on above: Performed By: #### 2 [id number] #### [facility] [address] [place] [address] ABO/Rh History Checkon 01-16 ABO/Rh History Check Verified Hx Blood Type Normal [facility] Comment on above: Performed By: #### 1 [id number] #### [facility] [address] [place] [address] ABSCon 01-16-2025 ABSC Gel Interp Negative Normal [facility] Comment on above: Performed By: #### 1 [id number] #### [facility] [address] [place] [address] B hCG Qualon 01-16-2025 Beta HCG ( test) Ql Negative Normal [facility] Comment on above: Performed By: #### 2 [id number] #### [facility] [address] [place] [address] BLOOD BANKOrdered By: Ti Mccain on 01-16-2025 ABO/Rh Interp Positive Invalid Interpretation Code [facility] BB Subsection ABSC Gel Interp Negative (01/16/25 7:26 PM) Normal [facility] BB Subsection BMPon 01-16-2025 Anion gap [Moles/Vol] 20 mmol/L High 6-16 [facility] Comment on above: Performed By: #### 2 [id number] #### [facility] [address] [place] [address] Calcium [Mass/Vol] 10.9 mg/dL Normal 8.9-11.1 [facility] Comment on above: Performed By: #### 2 [id number] #### [facility] [address] [place] [address] Chloride [Moles/Vol] 101 mmol/L Normal 101-111 [facility] Comment on above: Performed By: #### 2 [id number] #### [facility] [address] [place] [address] CO2 [Moles/Vol] 22 mmol/L Normal 21-31 [facility] Comment on above: Performed By: #### 2 [id number] #### [facility] [address] [place] [address] Creatinine [Mass/Vol] 0.9 mg/dL Normal 0.5-1.3 [facility] Comment on above: Performed By: #### 2 [id number] #### [facility] [address] [place] [address] Glucose [Mass/Vol] 116 mg/dL Normal 55-199 [facility] Comment on above: Performed By: #### 2 [id number] #### [facility] [address] [place] [address] Potassium [Moles/Vol] 3.3 mmol/L Low 3.5-5.3 [facility] Comment on above: Performed By: #### 2 [id number] #### [facility] [address] [place] [address] Sodium [Moles/Vol] 140 mmol/L Normal 135-145 [facility] Comment on above: Performed By: #### 2 [id number] #### [facility] [address] [place] [address] Urea nitrogen [Mass/Vol] 23 mg/dL High 5-21 [facility] Comment on above: Performed By: #### 2 [id number] #### [facility] [address] [place] [address] Urea nitrogen/Creatinine [Mass ratio] 26 No Units High 10-20 [facility] Comment on above: Performed By: #### 2 [id number] #### [facility] [address] [place] [address] Blood Bank ID#on 01-16-2025 BBID# [id number] Invalid Interpretation Code [facility] Comment on above: Performed By: #### 1 [id number] #### [facility] [address] [place] [address] CBC w/ Auto Diffon 5 Basophils/100 WBC (Bld) 0.3 % Normal 0.0-2.0 [facility] Comment on above: Performed By: #### 2 [id number] #### [facility] [address] [place] [address] Basophils/Leukocytes Auto (Bld) [Pure # fraction] 0.0 E9/L Normal 0.0-0.2 [facility] Comment on above: Performed By: #### 2 [id number] #### [facility] [address] [place] [address] Eosinophils (Bld) [#/Vol] 0.0 E9/L Normal 0.0-0.5 [facility] Comment on above: Performed By: #### 2 [id number] #### [facility] [address] [place] [address] Eosinophils/100 WBC (Bld) 0.0 % Normal 0.0-8.0 [facility] Comment on above: Performed By: #### 2 [id number] #### [facility] [address] [place] [address] Erythrocyte distribution width (RBC) [Ratio] 13.7 % Normal 10.9-14.2 [facility] Comment on above: Performed By: #### 2 [id number] #### [facility] [address] [place] [address] Hematocrit (Bld) [Volume fraction] 46.9 % High 34.0-46.0 [facility] Comment on above: Performed By: #### 2 [id number] #### [facility] [address] [place] [address] Hemoglobin (Bld) [Mass/Vol] 16.0 g/dL Normal 12.0-16.0 [facility] Comment on above: Performed By: #### 2 [id number] #### [facility] [address] [place] [address] Lymphocytes (Bld) [#/Vol] 1.4 E9/L Normal 1.0-4.0 [facility] Comment on above: Performed By: #### 2 [id number] #### [facility] [address] [place] [address] Lymphocytes/100 WBC (Bld) 11.6 % Low 14.0-50.0 [facility] Comment on above: Performed By: #### 2 [id number] #### [facility] [address] [place] [address] MCH (RBC) [Entitic mass] 28.8 pg Normal 27.0-34.0 [facility] Comment on above: Performed By: #### 2 [id number] #### [facility] [address] [place] [address] MCHC (RBC) [Mass/Vol] 34.1 g/dL Normal 31.4-36.0 [facility] Comment on above: Performed By: #### 2 [id number] #### [facility] [address] [place] [address] MCV (RBC) [Entitic vol] 84.3 fL Normal 80.0-100.0 [facility] Comment on above: Performed By: #### 2 [id number] #### [facility] [address] [place] [address] Monocytes (Bld) [#/Vol] 0.6 E9/L Normal 0.2-1.0 [facility] Comment on above: Performed By: #### 2 [id number] #### [facility] [address] [place] [address] Neutrophils (Bld) [#/Vol] 10.0 E9/L High 2.0-7.5 [facility] Comment on above: Performed By: #### 2 [id number] #### [facility] [address] [place] [address] Neutrophils/100 WBC (Bld) 83.4 % High 36.0-75.0 [facility] Comment on above: Performed By: #### 2 [id number] #### [facility] [address] [place] [address] Platelet mean volume (Bld) [Entitic vol] 8.9 fL Normal 6.4-10.8 [facility] Comment on above: Performed By: #### 2 [id number] #### [facility] [address] [place] [address] Platelets (Bld) [#/Vol] 300.0 E9/L Normal 150.0-500. 0 [facility] Comment on above: Performed By: #### 2 [id number] #### [facility] [address] [place] [address] RBC (Bld) [#/Vol] 5.6 E12/L Normal 4.3-5.9 [facility] Comment on above: Performed By: #### 2 [id number] #### [facility] [address] [place] [address] WBC corrected for nucl RBC Auto (Bld) [#/Vol] 12.0 E9/L High 4.0-11.0 [facility] Comment on above: Performed By: #### 2 [id number] #### [facility] [address] [place] [address] CHEMISTRYOrdered By: SYSTEM SYSTEM on 01-16-2025 Albumin [Mass/Vol] 5.5 g/dL High 3.3 - 5.0 gm/dL [facility] Albumin/Globulin [Mass ratio] 1.5 {ratio} Normal 1.1 - 2.2 [facility] ALP [Catalytic activity/Vol] 71 [iU]/d Normal 21 - 98 Int._Unit/ L [facility] ALT No additional P-5'-P [Catalytic activity/Vol] 42 [iU]/d Normal 6 - 46 Int._Unit/ L [facility] Anion gap [Moles/Vol] 20 mmol/L High 6 - 16 mEq/L [facility] AST [Catalytic activity/Vol] 19 [iU]/d Normal 5 - 43 Int._Unit/ L [facility] Bilirubin [Mass/Vol] 1.0 mg/dL Normal 0.0 - 1 .1 mg/dL [facility] Bilirubin.direct [Mass/Vol] 0.2 mg/dL Normal 0.0 - 0.4 mg/dL [facility] Bilirubin.indirect [Mass or moles/Vol] 0.8 mg/dL Normal 0.1 - 0.9 mg/dL [facility] Calcium [Mass/Vol] 10.9 mg/dL Normal 8.9 - 11. 1 mg/dL [facility] Chloride [Moles/Vol] 101 mmol/L Normal 101 - 1 11 mmol/L [facility] CO2 [Moles/Vol] 22 mmol/L Normal 21 - 31 mmol/L [facility] Creatinine [Mass/Vol] 0.9 mg/dL Normal 0.5 - 1.3 mg/dL [facility] eGFR 93 mL/min/1.73 m2 Normal >=59mL/min /1.73 m2 [facility] Ethanol Lvl mg/dL Normal <=11mg/dL [facility] Globulin (S) [Mass/Vol] 3.6 g/dL Normal 1.4 - 4.0 gm/dL [facility] Glucose [Mass/Vol] 116 mg/dL Normal 55 - 199 mg/dL [facility] Lactic Acid Lvl 1.6 mmol/L Normal 0.5 - 2.2 mmol/L [facility] Lipase [Catalytic activity/Vol] 8 U/L Low 13 - 58 unit/L [facility] Potassium [Moles/Vol] 3.3 mmol/L Low 3.5 - 5.3 mmol/L [facility] Protein [Mass/Vol] 9.1 g/dL High 6.0 - 7.8 gm/dL [facility] Sodium [Moles/Vol] 140 mmol/L Normal 135 - 145 mmol/L [facility] Troponin HS 3.40 pg/mL Low 10.10 - 27.10 pg/mL [facility] Comment on above: Interpretive Data: T he 95% CI (Confidence Interval) PPV (Positive Predictive Value) for myocardial infarction in females is 38 pg/mL, in males 51 pg/mL. The results should be used in conjunction with clinical conditions of myocardial infarction. (Access High Sensitivity Troponin I Instructions For Use, Sugar Sundar, June 2018) Urea nitrogen [Mass/Vol] 23 mg/dL High 5 - 21 mg/dL [facility] Urea nitrogen/Creatinine [Mass ratio] 26 mg/mg High 10 - 20 [facility] COAGULATIONOrdered By: Luisa Morrell on 01-16-2025 aPTT Coag (PPP) [Time] 23.1 s Low 25.1 - 36.5 second(s) [facility] Auto Coag Comment on above: Interpretive Data: [...] the same coagulation reagent and instrumentation as [facility]. Currently there are no coagulation studies available worldwide for children to 14 days, and no normal ranges. Heparin therapeutic range (represented by Anti-Factor Xa activity of 0.2 - 0.4 U/mL) corresponds to PTT of 56.6 - 109.0 sec. INR Coag (PPP) [Relative time] 1.10 {INR} Invalid Interpretation Code [facility] Auto Coag Comment on above: Interpretive Data: I NR results are specifically intended to assess patients stabilized on long-term Anticoagulation therapy suggested INR s Less Intensive Anticoagulation 2.0 3.0 Conventional Range 3.0 4.5 PT Coag (PPP) [Time] 12.3 s Normal 9.4 - 1 2.5 second(s) [facility] Auto Coag Comment on above: Interpretive Data: 1 5 days - 4 weeks 1 - 5 months 6 -11 months 1 5 years 6 10 years 11 -17 years Mean: 11.2 (9.5 12.6) Mean: 11.0 (9.7 12.8) Mean: 11.0 (9.8 13.0) Mean: 11.3 (9.9 13.4) Mean: 11.7 (10.0 14.6) Mean: 11.8 (10.0 - 14.1) Pediatric Reference ranges were obtained from a study by birtt Youssef alRossy prepared from 1437 samples obtained at 7 different centers using the same coagulation reagent and instrumentation as [facility]. Currently there are no coagulation studies available worldwide for children to 14 days, and no normal ranges. ED Clinical Summaryon 2024 ED Clinical Summary ED Clinical Summary [address] [address] ED Clinical Summary Person Information Name: PILI PARIKH/NewKveen Age: 19 Years : 2005 Sex: Female Language: Northern Irish PCP: MODESTA CHAND CNP Marital Status: Single Visit Id: Visit Reason: Back pain; Knee injury - Minor; Trauma - major; Fall; FALL Speciality: Acuity: 3 Enc Type: Emergency Med Service: Emergency Arrival: 01/16/2025 17:51:31 Discharge: 01/16/2025 20:36:11 LOS: 000 02:45 Checkin: 01/16/2025 17:51:31 Checkout: 01/16/2025 20:36:11 Dispo Type: Home (Routine DC) EVENTS: Event Name Event Status Request Date/Time Start Date/Time Complete Date/Time Arrive Complete 01/16/2025 17:51:31 01/16/2025 17:51:31 01/16/2025 17:51:31 Document Home Meds Request 01/16/2025 17:51:31 Triage Complete 01/16/2025 17:51:31 01/16/2025 17:56:55 01/16/2025 17:56:55 Bed Assign Complete 01/16/2025 17:51:31 01/16/2025 17:51:31 01/16/2025 17:51:31 Dr Exam Complete 01/16/2025 17:51:31 01/16/2025 17:56:00 01/16/2025 17:56:00 RN Exam Complete 01/16/2025 17:51:31 01/16/2025 17:57:27 01/16/2025 17:57:27 Registration Complete 01/16/2025 17:56:00 01/16/2025 19:21:33 01/16/2025 19:21:33 Fall Risk Request 01/16/2025 17:57:28 EKG Complete 01/16/2025 17:58:10 01/16/2025 18:42:30 NPO Request 01/16/2025 17:58:10 Pending Labs Request 01/16/2025 17:58:10 Lab Request 01/16/2025 17:58:10 Urine Collect Request 01/16/2025 17:58:10 RT Request 01/16/2025 17:58:10 Patient Care Request 01/16/2025 17:58:10 CT Complete 01/16/2025 17:58:10 01/16/2025 18:01:08 01/16/2025 18:35:50 Blood Collect Request 01/16/2025 17:58:10 X-Ray Complete 01/16/2025 17:58:10 01/16/2025 18:25:47 01/16/2025 18:41:23 Meds Admin Complete 01/16/2025 17:58:10 01/16/2025 18:07:10 Dr Exam Complete 01/16/2025 17:58:37 01/16/2025 17:58:37 01/16/2025 17:58:37 Trauma II Request 01/16/2025 18:03:14 Wet Read Request 01/16/2025 18:41:23 EKG Complete 01/16/2025 18:45:01 01/16/2025 19:00:31 Reg Complete Request 01/16/2025 19:21:33 Reg Bed Request Complete 01/16/2025 19:21:33 01/16/2025 19:21:33 01/16/2025 19:21:33 Pending Labs Complete 01/16/2025 19:36:12 01/16/2025 19:36:12 01/16/2025 20:02:56 Lab Complete 01/16/2025 19:36:12 01/16/2025 19:36:12 01/16/2025 20:02:56 Meds Admin Complete 01/16/2025 19:42:03 01/16/2025 20:00:34 Discharge Complete 01/16/2025 20:15:04 01/16/2025 20:36:16 01/16/2025 20:36:16 Transfer Complete 01/16/2025 20:36:16 01/16/2025 20:36:16 01/16/2025 20:36:16 ADDRESS: [address] [place] [phone] PHYS DOC NOTES: MEDICAL INFORMATION: Prescriptions Given: New Medications [id number], [address], [place] [id number], [phone] cyclobenzaprine (cyclobenzaprine 5 mg Tab) 1 Tablets By Mouth 3 times a day for 7 Days. Refills: 0. Medications to Continue Taking That Have Changed [id number], [address], [place] [id number], [phone] START: naproxen (naproxen 500 mg Tab) 1 Tablets By Mouth 2 times a day as needed Pain. with food. Refills: 0. START: promethazine (promethazine 12.5 mg oral tablet) 1 Tablets By Mouth every 6 hours as needed for nausea/vomiting. Refills: 0. Other Medications START: naproxen (Naprosyn 500 mg Tab) 1 Tablets By Mouth 2 times a day as needed for pain. Refills: 0. START: promethazine (Phenergan 12.5 mg Supp) 1 Suppositories By rectum every 8 hours as needed as needed for nausea/vomiting. 3rd line. Refills: 0. START: promethazine (Phenergan 25 mg Supp) 1 Suppositories By rectum every 6 hours as needed Nausea/Vomiting. Refills: 0. START: promethazine (promethazine 12.5 mg oral tablet) 1 Tablets By Mouth every 8 hours as needed as needed for nausea/vomiting. second line. Refills: 0. Medications to Continue with No Changes Other Medications ondansetron (Zofran ODT 4 mg Tab-Dis) 1 Tablets By Mouth every 8 hours as needed Nausea/Vomiting. Refills: 0. PATIENT EDUCATION INFORMATION: Instructions: RICE Therapy for Routine Care of Injuries; Contusion; Fall Prevention in the Home, Adult, [id number] Follow up: With: Address: When: MODESTA CHAND [address] [place] [phone] Business (1) In 3 days 2025 Comments: Call Dr for diagnosis based follow up DIAGNOSIS: Abdominal contusion; Fall down steps; Knee contusion Normal [facility] ED Patient Summaryon 025 ED Patient Summary ED Patient Summary [place] [id number] Patient Discharge Instructions Person Information Name: PILI PARIKH Age: 19 Years Arrival Date: 01/16/2025 17:51:31 Discharge Diagnosis: Abdominal contusion; Fall down steps; Knee contusion Primary Care Physician: MODESTA CHAND CNP Provider Information Primary Provider: August Beck M.D. Advanced Cord Splicer:Rashaad Albrecht PA-C The exam and treatment you received in the Emergency Department were for an urgent problem and are not intended as complete care. It is important that you follow up with a doctor, nurse practitioner, or physician???s technology assistant for ongoing care. If your symptoms [...] Follow-up Instructions: With: Address: When: MODESTA CHAND [address] [place] [phone] Business (1) In 3 days 2025 Comments: Call Dr for diagnosis based follow up In the event that this physician does not participate in your insurance network, please consult with your insurance company to find a nearby participating provider. Patient Education Materials: RICE Therapy for Routine Care of Injuries; Contusion; Fall Prevention in the Home, Adult, Xhuu-[id number] A MESSAGE TO ALL PATIENTS REGARDING OPIOIDS PRESCRIPTION OPIOIDS: WHAT YOU NEED TO KNOW Prescription opioids can be used to help relieve [id number] pain and are often prescribed following a [...] as well, even when taken as directed: ??? Tolerance???meaning you might need to take more of the medication for the same pain relief ??? Physical dependence???meaning you have symptoms of withdrawal when a medication is stopped ??? Increased sensitivity to pain ??? Constipation ??? Nausea, vomiting, and dry mouth ??? Sleepiness and dizziness ??? Confusion ??? Depression ??? Low levels of testosterone that can result in lower sex drive, energy, and strength ??? Itching and sweating RISKS ARE GREATER WITH: ??? History of drug misuse, substance use disorder, or overdose ??? Mental health conditions (such as depression or anxiety) ??? Sleep apnea ??? Older age (65 years and older) ??? Avoid alcohol while taking prescription opioids. Also, unless specifically advised by your health care provider, medications to avoid include: ??? Benzodiazepines (such as Xanax or Valium) ??? Muscle relaxants (such as Soma or Flexeril) ??? Hypnotics (such as Ambien or Lunesta) ??? Other prescription opioids KNOW YOUR OPTIONS Talk to your health care provider about ways to manage your pain that don???t involve prescription opioids. Some of these options may actually work better and have fewer risks and side effects. Options may include: ??? Pain relievers such as acetaminophen, ibuprofen, and naproxen ??? Some medication that are also used for depression or seizures ??? Physical therapy and exercise ??? Cognitive behavioral therapy, a psychological, goal-directed approach, in which patients learn how to modify physical, behavioral, and emotional triggers of pain and stress. IF YOU ARE PRESCRIBED OPIOIDS FOR PAIN: ??? Never take opioids in greater amounts or more often than prescribed. ??? Follow up with your primary health care provider. o Work together to create a plan on how to manage your pain. o Talk about ways to help manage your pain that don???t involve prescription opioids. o Talk about any and all concerns and side effects. ??? Help prevent misuse and abuse o Never sell or share prescription opioids. o Never use another person???s prescription opioids. ??? Store prescription opioids in a secure place and out of reach of others (this may include visitors, children, friends, and family). ??? Safely dispose of unused prescription opioids: Find your community drug take-back program or your pharmacy mail-back program, or flush them down the toilet, following guidance from the Food and Drug Administration (www.fda.gov/Drugs/Resource sForYou). ??? Visit (more content not included)... Normal [facility] Ethanolon 01-16-2025 Ethanol Lvl <10 Normal <=11 [facility] Comment on above: Performed By: #### 2 [id number] #### [facility] [address] [place] [address] HEMATOLOGYOrdered By: SYSTEM SYSTEM on 01-16-2025 Basophils/100 WBC (Bld) 0.3 % Normal 0.0 - 2.0 % [facility] Basophils/Leukocytes Auto (Bld) [Pure # fraction] 0.0 E9/L Normal 0.0 - 0.2 E9/L [facility] Eosinophils (Bld) [#/Vol] 0.0 E9/L Normal 0.0 - 0.5 E9/L [facility] Eosinophils/100 WBC (Bld) 0.0 % Normal 0.0 - 8.0 % [facility] Erythrocyte distribution width (RBC) [Ratio] 13.7 % Normal 10.9 - 14.2 % [facility] Hematocrit (Bld) [Volume fraction] 46.9 % High 34.0 - 46.0 % [facility] Hemoglobin (Bld) [Mass/Vol] 16.0 g/dL Normal 12.0 - 16.0 gm/dL [facility] Lymphocytes (Bld) [#/Vol] 1.4 E9/L Normal 1.0 - 4.0 E9/L [facility] Lymphocytes/100 WBC (Bld) 11.6 % Low 14.0 - 50.0 % [facility] MCH (RBC) [Entitic mass] 28.8 pg Normal 27.0 - 34.0 pg [facility] MCHC (RBC) [Mass/Vol] 34.1 g/dL Normal 31.4 - 36.0 gm/dL [facility] MCV (RBC) [Entitic vol] 84.3 fL Normal 80.0 - 100.0 fL [facility] Monocytes (Bld) [#/Vol] 0.6 E9/L Normal 0.2 - 1.0 E9/L [facility] Monocytes/100 WBC (Bld) 4.7 % Normal 4.0 - 14.0 % [facility] Neutrophils (Bld) [#/Vol] 10.0 E9/L High 2.0 - 7.5 E9/L [facility] Neutrophils/100 WBC (Bld) 83.4 % High 36.0 - 75.0 % [facility] Platelet mean volume (Bld) [Entitic vol] 8.9 fL Normal 6.4 - 10.8 fL Remisol Heme Platelets (Bld) [#/Vol] 300.0 E9/L Normal 150.0 - 500.0 E9/L [facility] Heme RBC (Bld) [#/Vol] 5.6 E12/L Normal 4.3 - 5.9 E12/L [facility] Heme WBC corrected for nucl RBC Auto (Bld) [#/Vol] 12.0 E9/L High 4.0 - 11.0 E9/L [facility] Heme Hep Func Panelon 01-16-2025 Albumin [Mass/Vol] 5.5 g/dL High 3.3-5.0 [facility] Comment on above: Performed By: #### 2 [id number] #### [facility] [address] [place] [address] Albumin/Globulin (S) [Mass conc ratio] 1.5 Normal 1.1-2.2 [facility] Comment on above: Performed By: #### 2 [id number] #### [facility] [address] [place] [address] ALP [Catalytic activity/Vol] 71 Int._Unit/L Normal 21-98 [facility] Comment on above: Performed By: #### 2 [id number] #### [facility] [address] [place] [address] ALT No additional P-5'-P [Catalytic activity/Vol] 42 Int._Unit/L Normal 6-46 [facility] Comment on above: Performed By: #### 2 [id number] #### [facility] [address] [place] [address] AST [Catalytic activity/Vol] 19 Int._Unit/L Normal 5-43 [facility] Comment on above: Performed By: #### 2 [id number] #### [facility] [address] [place] [address] Bilirubin [Mass/Vol] 1.0 mg/dL Normal 0.0-1.1 [facility] Comment on above: Performed By: #### 2 [id number] #### [facility] [address] [place] [address] Bilirubin.direct [Mass/Vol] 0.2 mg/dL Normal 0.0-0.4 [facility] Comment on above: Performed By: #### 2 [id number] #### [facility] [address] [place] [address] Bilirubin.indirect [Mass or moles/Vol] 0.8 mg/dL Normal 0.1-0.9 [facility] Comment on above: Performed By: #### 2 [id number] #### [facility] [address] [place] [address] Globulin (S) [Mass/Vol] 3.6 g/dL Normal 1.4-4.0 [facility] Comment on above: Performed By: #### 2 [id number] #### [facility] [address] [place] [address] Protein [Mass/Vol] 9.1 g/dL High 6.0-7.8 [facility] Comment on above: Performed By: #### 2 [id number] #### [facility] [address] [place] [address] Lactic Acidon 01-16-2025 Lactic Acid Lvl 1.6 mmol/L Normal 0.5-2.2 [facility] Comment on above: Performed By: #### 2 [id number] #### [facility] [address] [place] [address] Lipase Levelon 01-16-2025 Lipase [Catalytic activity/Vol] 8 U/L Low 13-58 [facility] Comment on above: Performed By: #### 2 [id number] #### [facility] [address] [place] [address] PT & PTTon 01-16-2025 aPTT Coag (PPP) [Time] 23.1 second(s) Low 25.1-36.5 [facility] Comment on above: Result Comment: [...] the same coagulation reagent and instrumentation as [facility]. Currently there are no coagulation studies available worldwide for children to 14 days, and no normal ranges. Heparin therapeutic range (represented by Anti-Factor Xa activity of 0.2 - 0.4 U/mL) corresponds to PTT of 56.6 - 109.0 sec. Performed By: #### 1 [id number] #### [facility] [address] [place] [address] INR Coag (PPP) [Relative time] 1.10 {INR} Invalid Interpretation Code [facility] Comment on above: Result Comment: INR results are specifically intended to assess patients stabilized on long-term Anticoagulation therapy suggested INR???s ???Less Intensive Anticoagulation??? 2.0 ??? 3.0 Conventional Range 3.0 ??? 4.5 Performed By: #### 1 [id number] #### [facility] [address] [facility] [place] [address] PT Coag (PPP) [Time] 12.3 second(s) Normal 9.4-12.5 [facility] Comment on above: Result Comment: 15 d ays - 4 weeks 1 - 5 months 6 -11 months 1 ??? 5 years 6 ??? 10 years 11 -17 years Mean: 11.2 (9.5 ??? 12.6) Mean: 11.0 (9.7 ??? 12.8) Mean: 11.0 (9.8 ??? 13.0) Mean: 11.3 (9.9 ??? 13.4) Mean: 11.7 (10.0 ??? 14.6) Mean: 11.8 (10.0 - 14.1) Pediatric Reference ranges were obtained from a study by Az Mary et al. prepared from 1437 samples obtained at 7 different centers using the same coagulation reagent and instrumentation as [facility]. Currently there are no coagulation studies available worldwide for children to 14 days, and no normal ranges. Performed By: #### 1 [id number] #### [facility] [address] [place] [address] Pre-Arrival Noteon Pre-Arrival Note Pre-Arrival Note Pre-Arrival Summary Name: , quincyjermaine Current Date: 01/16/2025 17:51:59 EST Gender: Female Date of : Age: 19 Pre-Arrival Type: EMS ETA: 01/16/2025 18:12:00 EST Primary Care Physician: Presenting Problem: fall Pre-Arrival User: Referring Source: Location: Completion Date/Time: 01/16/2025 17:42:00 [facility] Emergency Department Pre-Hospital Report Form Vital Signs: Pre-Hospital Report: Treatment in Route: Response to Treatment: Misc. Issues: Normal [facility] SEROLOGYOrdered By: Ghazal merida on 01-16-2025 Beta HCG ( test) Ql Negative (01/16/25 7:26 PM) Normal [facility] Man Sero Troponinon 01-16-2025 Troponin HS 3.40 pg/mL Low 10.10-27.1 0 [facility] Comment on above: Result Comment: The 95% CI (Confidence Interval) PPV (Positive Predictive Value) for myocardial infarction in females is 38 pg/mL, in males 51 pg/mL. The results should be used in conjunction with clinical conditions of myocardial infarction. (Access High Sensitivity Troponin I Instructions For Use, [place], June 2018) Performed By: #### 2 [id number] #### [facility] [address] [place] [address] eGFRon 01-16-2025 eGFR 93 mL/min/1.73 m2 Normal >=59 [facility] Comment on above: Performed By: #### 1 [id number] #### [facility] [address] [place] [address] Basic Metabolic Panelon 12-0 Anion gap [Moles/Vol] 19.5 mmol/L High 6.0-15.0 [facility] Comment on above: Performed By: #### C K, PT, BNP, PTT, CBC, BMP, HS TROP #### [facility] [address] Calcium [Mass/Vol] 10.4 mg/dL High 8.6-10.3 [facility] Comment on above: Performed By: #### C K, PT, BNP, PTT, CBC, BMP, HS TROP #### [facility] [address] [place] [id number] [place] Chloride [Moles/Vol] 94 mmol/L Low 98-107 [facility] Comment on above: Performed By: #### C K, PT, BNP, PTT, CBC, BMP, HS TROP #### [facility] [address] [place] [id number] [place] CO2 [Moles/Vol] 26.3 mmol/L Normal 21.0-31.0 [facility] Comment on above: Performed By: #### C K, PT, BNP, PTT, CBC, BMP, HS TROP #### [facility] [address] [place] [id number] [place] Creatinine [Mass/Vol] 0.91 mg/dL Normal 0.60-1.20 [facility] Comment on above: Performed By: #### C K, PT, BNP, PTT, CBC, BMP, HS TROP #### [facility] [address] [place] [id number] [place] Creatinine Clr Calc Pharmacy 104.62 Normal [facility] Comment on above: Performed By: #### C K, PT, BNP, PTT, CBC, BMP, HS TROP #### [facility] [address] GFR/1.73 sq M.predicted MDRD (S/P/Bld) [Vol rate/Area] mL/min/{1.73_m2} Normal [facility] Comment on above: Performed By: #### C K, PT, BNP, PTT, CBC, BMP, HS TROP #### [facility] [address] Glucose [Mass/Vol] 91 mg/dL Normal 70-100 [facility] Comment on above: Result Comment: [place] Glucose Reference Range is dependent on time and content of last meal. Glucose of more than 200 mg/dL in a nonstressed, ambulatory subject supports the diagnosis of Diabetes Mellitus. ADA recommended reference range Performed By: #### C K, PT, BNP, PTT, CBC, BMP, HS TROP #### [address] Potassium [Moles/Vol] 2.8 mmol/L Off scale low 3.5-5.1 [facility] Comment on above: Result Comment: Crit ical Result Called to and read back by: MATT BUSH at: 10/28/2024 19:29:56 by:[id number] Performed By: #### C K, PT, BNP, PTT, CBC, BMP, HS TROP #### [address] Sodium [Moles/Vol] 137 mmol/L Normal 136-145 [facility] Comment on above: Performed By: #### C K, PT, BNP, PTT, CBC, BMP, HS TROP #### [facility] [address] Urea nitrogen [Mass/Vol] 21 mg/dL Normal 7-25 [facility] Comment on above: Performed By: #### C K, PT, BNP, PTT, CBC, BMP, HS TROP #### [address] Complete Blood Count Auto Di ffon 10-28-2024 Basophils (Bld) [#/Vol] 0.1 10*3/uL Normal 0.0-0.2 [facility] Comment on above: Result Comment: PERF ORMED BY: [place] [address] PATHOLOGIST [employer] IDANIA GODOY M.D. Performed By: #### C K, PT, BNP, PTT, CBC, BMP, HS TROP #### [address] Basophils/100 WBC (Bld) 0.7 % Normal . [facility] Comment on above: Performed By: #### C K, PT, BNP, PTT, CBC, BMP, HS TROP #### [address] Eosinophils (Bld) [#/Vol] 0.1 10*3/uL Normal 0.0-0.45 [facility] Comment on above: Performed By: #### C K, PT, BNP, PTT, CBC, BMP, HS TROP #### [address] Eosinophils/100 WBC (Bld) 0.6 % Normal . [facility] Comment on above: Performed By: #### C K, PT, BNP, PTT, CBC, BMP, HS TROP #### [address] Erythrocyte distribution width (RBC) [Ratio] 13.4 % Normal 11.9-15.3 [facility] Comment on above: Performed By: #### C K, PT, BNP, PTT, CBC, BMP, HS TROP #### [address] Hematocrit (Bld) [Volume fraction] 49.2 % High 34.0-46.4 [facility] Comment on above: Performed By: #### C K, PT, BNP, PTT, CBC, BMP, HS TROP #### [address] Hemoglobin (Bld) [Mass/Vol] 16.5 g/dL High 11.8-15.4 [facility] Comment on above: Performed By: #### C K, PT, BNP, PTT, CBC, BMP, HS TROP #### [address] Lymphocytes (Bld) [#/Vol] 2.9 10*3/uL Normal 1.00-4.8 [facility] Comment on above: Performed By: #### C K, PT, BNP, PTT, CBC, BMP, HS TROP #### [address] Lymphocytes/100 WBC (Bld) 14.7 % Normal . [facility] Comment on above: Performed By: #### C K, PT, BNP, PTT, CBC, BMP, HS TROP #### [address] MCH (RBC) [Entitic mass] 28.7 pg Normal 24.7-34.3 [facility] Comment on above: Performed By: #### C K, PT, BNP, PTT, CBC, BMP, HS TROP #### [address] MCV (RBC) [Entitic vol] 85.7 fL Normal 80-100 [facility] Comment on above: Performed By: #### C K, PT, BNP, PTT, CBC, BMP, HS TROP #### [address] Mean Corpuscular HGB Conc 33.5 g/dL Normal 32.0-35.0 [facility] Comment on above: Performed By: #### C K, PT, BNP, PTT, CBC, BMP, HS TROP #### [address] Monocytes (Bld) [#/Vol] 1.2 10*3/uL High 0.0-0.8 [facility] Comment on above: Performed By: #### C K, PT, BNP, PTT, CBC, BMP, HS TROP #### [place] [address] [place] Monocytes/100 WBC (Bld) 16.96 % Normal 0.00-20.00 [facility] Comment on above: Performed By: #### C K, PT, BNP, PTT, CBC, BMP, HS TROP #### [address] Monocytes/100 WBC (Bld) 5.9 % Normal . [facility] Comment on above: Performed By: #### C K, PT, BNP, PTT, CBC, BMP, HS TROP #### [address] Neutrophils (Bld) [#/Vol] 15.5 10*3/uL High 1.8-7.7 [facility] Comment on above: Performed By: #### C K, PT, BNP, PTT, CBC, BMP, HS TROP #### [address] Neutrophils/100 WBC (Bld) 78.1 % Normal . [facility] Comment on above: Performed By: #### C K, PT, BNP, PTT, CBC, BMP, HS TROP #### [address] NRBC% 0.1 /100{WBC} Normal 0-0.5 [facility] Comment on above: Performed By: #### C K, PT, BNP, PTT, CBC, BMP, HS TROP #### [address] Platelet mean volume (Bld) [Entitic vol] 8.4 fL Normal 6.3-10.7 [facility] Comment on above: Performed By: #### C K, PT, BNP, PTT, CBC, BMP, HS TROP #### [place] [address] [place] Platelets (Bld) [#/Vol] 333 10*3/uL Normal 150-450 [facility] Comment on above: Performed By: #### C K, PT, BNP, PTT, CBC, BMP, HS TROP #### [place] [address] [place] RBC (Bld) [#/Vol] 5.74 10*6/uL High 3.60-5.00 [facility] Comment on above: Performed By: #### C K, PT, BNP, PTT, CBC, BMP, HS TROP #### [address] WBC (Bld) [#/Vol] 19.8 10*3/uL High 3.8-11.6 [facility] Comment on above: Performed By: #### C K, PT, BNP, PTT, CBC, BMP, HS TROP #### [place] [address] [place] Dipstick and Microscopicon 1 12-29-2023 Appearance (U) Turbid Critically abnormal Clear [facility] Comment on above: Order Comment: Name Collection Type:: Clean-Voided Midstream Performed By: #### C UU, UHCG, ADDONUAPLUS #### [address] Bacteria,Urine 1+ High None Seen [facility] Comment on above: Order Comment: Name Collection Type:: Clean-Voided Midstream Performed By: #### C UU, UHCG, ADDONUAPLUS #### [address] Bilirubin,Urine Negative Normal Negative [facility] Comment on above: Order Comment: Name Collection Type:: Clean-Voided Midstream Performed By: #### C UU, UHCG, ADDONUAPLUS #### [place] [address] [place] Color (U) [place] Critically abnormal Yellow [facility] Comment on above: Order Comment: Name Collection Type:: Clean-Voided Midstream Performed By: #### C UU, UHCG, ADDONUAPLUS #### [place] [address] [place] Glucose Ql (U) Normal Normal Normal [facility] Comment on above: Order Comment: Name Collection Type:: Clean-Voided Midstream Performed By: #### C UU, UHCG, ADDONUAPLUS #### [facility] [address] [place] [address] [place] Hyaline Casts,Urine 9 [LPF] High 0-8 [facility] Comment on above: Order Comment: Name Collection Type:: Clean-Voided Midstream Performed By: #### C UU, UHCG, ADDONUAPLUS #### [facility] [address] [place] [address] Ketones Ql (U) 3+ High Negative [facility] Comment on above: Order Comment: Name Collection Type:: Clean-Voided Midstream Performed By: #### C UU, UHCG, ADDONUAPLUS #### [address] Leukocyte esterase Test strip Ql (U) 3+ High Negative [facility] Comment on above: Order Comment: Name Collection Type:: Clean-Voided Midstream Performed By: #### C UU, UHCG, ADDONUAPLUS #### [address] Mucus,Urine 4+ Critically abnormal [facility] Comment on above: Order Comment: Name Collection Type:: Clean-Voided Midstream Performed By: #### C UU, UHCG, ADDONUAPLUS #### [address] Nitrite,Urine Negative Normal Negative [facility] Comment on above: Order Comment: Name Collection Type:: Clean-Voided Midstream Performed By: #### C UU, UHCG, ADDONUAPLUS #### [place] [address] [place] Occult Blood,Urine 3+ High Negative [facility] Comment on above: Order Comment: Name Collection Type:: Clean-Voided Midstream Performed By: #### C UU, UHCG, ADDONUAPLUS #### [address] pH (U) 8.0 [pH] Normal 5.0-9.0 [facility] Comment on above: Order Comment: Name Collection Type:: Clean-Voided Midstream Performed By: #### C UU, UHCG, ADDONUAPLUS #### [address] Protein (U) [Mass/Vol] 100 mg/dL High Negative [facility] Comment on above: Order Comment: Name Collection Type:: Clean-Voided Midstream Performed By: #### C UU, UHCG, ADDONUAPLUS #### [address] RBC,Urine Innumerable High 0-4 [facility] Comment on above: Order Comment: Name Collection Type:: Clean-Voided Midstream Performed By: #### C UU, UHCG, ADDONUAPLUS #### [address] Specificy [place],Urine 1.029 Normal 1.001-1.03 0 [facility] Comment on above: Order Comment: Name Collection Type:: Clean-Voided Midstream Performed By: #### C UU, UHCG, ADDONUAPLUS #### [address] Squamous Epithelial Cell,Urine 1 [HPF] Normal 0-2 [facility] Comment on above: Order Comment: Name Collection Type:: Clean-Voided Midstream Performed By: #### C UU, UHCG, ADDONUAPLUS #### [address] Urobilinogen,Urine 6 mg/dL High Normal [facility] Comment on above: Order Comment: Name Collection Type:: Clean-Voided Midstream Performed By: #### C UU, UHCG, ADDONUAPLUS #### [address] WBC,Urine 50 [HPF] High 0-4 [facility] Comment on above: Order Comment: Name Collection Type:: Clean-Voided Midstream Performed By: #### C UU, UHCG, ADDONUAPLUS #### [address] Drug Screen,Urineon 12-01-20 24 Amphetamine Screen,Urine Negative Normal Negative [facility] Comment on above: Performed By: #### C K, PT, BNP, PTT, CBC, BMP, HS TROP #### [address] Barbiturate Screen,Urine Negative Normal Negative [facility] Comment on above: Performed By: #### C K, PT, BNP, PTT, CBC, BMP, HS TROP #### [address] Benzodiazepines Screen,Urine Negative Normal Negative [facility] Comment on above: Performed By: #### C K, PT, BNP, PTT, CBC, BMP, HS TROP #### [address] Cannabinoid Screen,Urine Positive High Negative [facility] Comment on above: Result Comment: Thes e are unconfirmed results and should not be used for legal purposes. Drug Cut-Off Concentration: AMPH 1000 ng/mL NIKOLAS 200 ng/mL SHRAVAN 200 ng/mL COCM 300 ng/mL OP 300 ng/mL PCP 25 ng/mL THC 20 ng/mL PERFORMED BY: [place] [address] PATHOLOGIST [employer] IDANIA GODOY M.D. Performed By: #### C K, PT, BNP, PTT, CBC, BMP, HS TROP #### [address] Cocaine Screen,Urine Negative Normal Negative [facility] Comment on above: Performed By: #### C K, PT, BNP, PTT, CBC, BMP, HS TROP #### [place] [address] [place] Opiate Screen,Urine Negative Normal Negative [facility] Comment on above: Performed By: #### C K, PT, BNP, PTT, CBC, BMP, HS TROP #### [address] Phencyclidine Screen,Urine Negative Normal Negative [facility] Comment on above: Performed By: #### C K, PT, BNP, PTT, CBC, BMP, HS TROP #### [address] ECG 12 lead ECGon 10-28-2024 ECG 12 lead ECG [facility] [place] [address] [place] [address] Electrocardiograph Report Signed Patient: Pili Parikh MR#: [id number] 1526 : 2005 Acct:[id number] Age/Sex: 19 / F ADM Date: 10/28/24 Loc: ER Room: Type: [facility] ER Attending Dr: Ordering Provider: Rd [...] sinus rhythm Confirmed by Robert BOLANOS DO ([id number]) on 10/28/2024 9:48:18 PM Referred By: Electronically Signed By: Robert BOLANOS DO Transcribed By: MUS Signed By Robert Bolanos DO 1 12/29/232147 Normal [facility] HCG,Urineon 10-28-2024 Beta HCG ( test) Ql (U) Negative Normal [facility] Comment on above: Order Comment: Name Collection Type:: Clean-Voided Midstream Result Comment: PERF ORMED BY: [address] [place] [address] PATHOLOGIST [employer] IDANIA GODOY M.D. Performed By: #### C UU, UHCG, ADDONUAPLUS #### [address] Hepatic Panelon 10-28-2024 Albumin [Mass/Vol] 5.4 g/dL Normal 3.5-5.7 [facility] Comment on above: Performed By: #### C K, PT, BNP, PTT, CBC, BMP, HS TROP #### [address] Albumin/Globulin [Mass ratio] 1.5 {ratio} Normal [facility] Comment on above: Performed By: #### C K, PT, BNP, PTT, CBC, BMP, HS TROP #### [address] ALP [Catalytic activity/Vol] 78 U/L Normal 34-104 [facility] Comment on above: Performed By: #### C K, PT, BNP, PTT, CBC, BMP, HS TROP #### [address] ALT [Catalytic activity/Vol] 48 U/L Normal 7-52 [facility] Comment on above: Performed By: #### C K, PT, BNP, PTT, CBC, BMP, HS TROP #### [address] AST [Catalytic activity/Vol] 30 U/L Normal 13-39 [facility] Comment on above: Performed By: #### C K, PT, BNP, PTT, CBC, BMP, HS TROP #### [address] Bilirubin [Mass/Vol] 1.1 mg/dL High 0.3-1.0 [facility] Comment on above: Performed By: #### C K, PT, BNP, PTT, CBC, BMP, HS TROP #### [address] Bilirubin,Indirect 0.9 mg/dL Normal [facility] Comment on above: Performed By: #### C K, PT, BNP, PTT, CBC, BMP, HS TROP #### [address] Bilirubin.indirect [Mass/Vol] 0.20 mg/dL High 0.03-0.18 [facility] Comment on above: Performed By: #### C K, PT, BNP, PTT, CBC, BMP, HS TROP #### [address] Globulin (S) [Mass/Vol] 3.5 g/dL Normal [facility] Comment on above: Performed By: #### C K, PT, BNP, PTT, CBC, BMP, HS TROP #### [address] Protein [Mass/Vol] 8.9 g/dL Normal 6.4-8.9 [facility] Comment on above: Performed By: #### C K, PT, BNP, PTT, CBC, BMP, HS TROP #### [address] Lipaseon 10-28-2024 Lipase [Catalytic activity/Vol] 19.0 U/L Normal 11.0-82.0 [facility] Comment on above: Result Comment: PERF ORMED BY: [place] [address] PATHOLOGIST [employer] IDANIA GODOY M.D. Performed By: #### C K, PT, BNP, PTT, CBC, BMP, HS TROP #### [address] Potassiumon 10-28-2024 Potassium [Moles/Vol] 2.9 mmol/L Off scale low 3.5-5.1 [facility] Comment on above: Result Comment: Crit ical Result Called to and read back by: RYLAN BELL at: 10/28/2024 23:09:11 by:MO PERFORMED BY: [place] [address] PATHOLOGIST [employer] IDANIA GODOY M.D. Performed By: #### C K, PT, BNP, PTT, CBC, BMP, HS TROP #### [address] Urine Cultureon 10-28-2024 Bacteria identified Cx Nom (U) 75,000 colonies/ml mixed bacterial skin contaminants 2 Days PERFORMED BY: [place] [address] PATHOLOGIST [employer] IDANIA GODOY M.D. Normal [facility] Comment on above: Performed By: #### C UU, UHCG, ADDONUAPLUS #### [facility] [address] Activated partial thrombopla stin time (aPTT) in platelet poor plasma by coagulation aOrdered By: Ania Watson on 08-03-2024 aPTT Coag (PPP) [Time] 24.7 s Low 25.1-36.5 [facility] Comment on above: A hematocrit value g reater than 55% may lead to inaccurate results in coagulation testing. Patients having hematocrit values >55% require a special collection tube for coagulation studies. Please contact the laboratory at [phone] for redraw instructions. BNP ser/plasOrdered By: Reji Watson on 08-03-2024 Natriuretic peptide B (Bld) [Mass/Vol] 19.0 pg/mL Normal 5-100 [facility] Comment on above: Order Comment: PT WA NTS TO WAIT UNTIL SHE IS TAKEN BACK INTO ER AND THEY START A IV ON HER,2099 Result Comment: PERF ORMED BY: [place] [address] PATHOLOGIST [employer] NAY SARKAR M.D. Performed By: #### C K, PT, BNP, PTT, CBC, BMP, HS TROP #### [address] Basic Metabolic Panelon Creatinine Clr Calc Pharmacy 154.09 Normal [facility] Comment on above: Order Comment: PT WA NTS TO WAIT UNTIL SHE IS TAKEN BACK INTO ER AND THEY START A IV ON HER,2099 Result Comment: PERF ORMED BY: [place] [address] PATHOLOGIST [employer]ANT NAY SARKAR M.D. Performed By: #### C K, PT, BNP, PTT, CBC, BMP, HS TROP #### [address] GFR/1.73 sq M.predicted MDRD (S/P/Bld) [Vol rate/Area] mL/min/{1.73_m2} Normal [facility] Comment on above: Order Comment: PT WA NTS TO WAIT UNTIL SHE IS TAKEN BACK INTO ER AND THEY START A IV ON HER2099 Performed By: #### C K, PT, BNP, PTT, CBC, BMP, HS TROP #### [facility] [address] [place] [id number] [place] Calcium [Mass/volume] in Ser um or PlasmaOrdered By: Ania Watson on 08-03-2024 Calcium [Mass/Vol] 9.6 mg/dL Normal 8.6-10.3 [facility] Comment on above: Order Comment: PT WA NTS TO WAIT UNTIL SHE IS TAKEN BACK INTO ER AND THEY START A IV ON HER2099 Performed By: #### C K, PT, BNP, PTT, CBC, BMP, HS TROP #### [facility] [address] Carbon dioxide, total [Moles /volume] in Serum or PlasmaOrdered By: Ania Watson on 08-03-2024 CO2 [Moles/Vol] 18.5 mmol/L Low 21.0-31.0 [facility] Comment on above: Order Comment: PT WA NTS TO WAIT UNTIL SHE IS TAKEN BACK INTO ER AND THEY START A IV ON HER2099 Performed By: #### C K, PT, BNP, PTT, CBC, BMP, HS TROP #### [facility] [address] [place] [id number] [place] Chloride [Moles/volume] in [place] or PlasmaOrdered By: Ania Watson on 08-03-2024 Chloride [Moles/Vol] 99 mmol/L Normal 98-107 [facility] Comment on above: Order Comment: PT WA NTS TO WAIT UNTIL SHE IS TAKEN BACK INTO ER AND THEY START A IV ON HER2099 Performed By: #### C K, PT, BNP, PTT, CBC, BMP, HS TROP #### [facility] [address] [place] [id number] [place] Complete Blood Count Auto Di ffon 08-03-2024 Basophils (Bld) [#/Vol] 0.1 10*3/uL Normal 0.0-0.2 [facility] Comment on above: Order Comment: PT WA NTS TO WAIT UNTIL SHE IS TAKEN BACK INTO ER AND THEY START A IV ON HER,, 2099 Result Comment: PERF ORMED BY: [place] [address] PATHOLOGIST [employer] NAY SARKAR M.D. Performed By: #### C K, PT, BNP, PTT, CBC, BMP, HS TROP #### [address] Basophils/100 WBC (Bld) 0.4 % Normal . [facility] Comment on above: Order Comment: PT WA NTS TO WAIT UNTIL SHE IS TAKEN BACK INTO ER AND THEY START A IV ON HER,, 2099 Performed By: #### C K, PT, BNP, PTT, CBC, BMP, HS TROP #### [address] Eosinophils (Bld) [#/Vol] 0.2 10*3/uL Normal 0.0-0.45 [facility] Comment on above: Order Comment: PT WA NTS TO WAIT UNTIL SHE IS TAKEN BACK INTO ER AND THEY START A IV ON HER,, 2099 Performed By: #### C K, PT, BNP, PTT, CBC, BMP, HS TROP #### [address] Eosinophils/100 WBC (Bld) 0.9 % Normal . [facility] Comment on above: Order Comment: PT WA NTS TO WAIT UNTIL SHE IS TAKEN BACK INTO ER AND THEY START A IV ON HER,, 2099 Performed By: #### C K, PT, BNP, PTT, CBC, BMP, HS TROP #### [address] Erythrocyte distribution width (RBC) [Ratio] 13.2 % Normal 11.9-15.3 [facility] Comment on above: Order Comment: PT WA NTS TO WAIT UNTIL SHE IS TAKEN BACK INTO ER AND THEY START A IV ON HER,, 2099 Performed By: #### C K, PT, BNP, PTT, CBC, BMP, HS TROP #### [place] [address] [place] Hematocrit (Bld) [Volume fraction] 43.6 % Normal 34.0-46.4 [facility] Comment on above: Order Comment: PT WA NTS TO WAIT UNTIL SHE IS TAKEN BACK INTO ER AND THEY START A IV ON HER,2099 Performed By: #### C K, PT, BNP, PTT, CBC, BMP, HS TROP #### [address] Hemoglobin (Bld) [Mass/Vol] 14.8 g/dL Normal 11.8-15.4 [facility] Comment on above: Order Comment: PT WA NTS TO WAIT UNTIL SHE IS TAKEN BACK INTO ER AND THEY START A IV ON HER,2099 Performed By: #### C K, PT, BNP, PTT, CBC, BMP, HS TROP #### [address] Lymphocytes (Bld) [#/Vol] 2.5 10*3/uL Normal 1.00-4.8 [facility] Comment on above: Order Comment: PT WA NTS TO WAIT UNTIL SHE IS TAKEN BACK INTO ER AND THEY START A IV ON HER,2099 Performed By: #### C K, PT, BNP, PTT, CBC, BMP, HS TROP #### [place] [address] [place] Lymphocytes/100 WBC (Bld) 13.0 % Normal . [facility] Comment on above: Order Comment: PT WA NTS TO WAIT UNTIL SHE IS TAKEN BACK INTO ER AND THEY START A IV ON HER,2099 Performed By: #### C K, PT, BNP, PTT, CBC, BMP, HS TROP #### [place] [address] [place] MCH (RBC) [Entitic mass] 28.4 pg Normal 24.7-34.3 [facility] Comment on above: Order Comment: PT WA NTS TO WAIT UNTIL SHE IS TAKEN BACK INTO ER AND THEY START A IV ON HER,2099 Performed By: #### C K, PT, BNP, PTT, CBC, BMP, HS TROP #### [place] [address] [place] MCV (RBC) [Entitic vol] 83.8 fL Normal 80-100 [facility] Comment on above: Order Comment: PT WA NTS TO WAIT UNTIL SHE IS TAKEN BACK INTO ER AND THEY START A IV ON HER,2099 Performed By: #### C K, PT, BNP, PTT, CBC, BMP, HS TROP #### [address] Mean Corpuscular HGB Conc 33.9 g/dL Normal 32.0-35.0 [facility] Comment on above: Order Comment: PT WA NTS TO WAIT UNTIL SHE IS TAKEN BACK INTO ER AND THEY START A IV ON HER,2099 Performed By: #### C K, PT, BNP, PTT, CBC, BMP, HS TROP #### [address] Monocytes (Bld) [#/Vol] 1.6 10*3/uL High 0.0-0.8 [facility] Comment on above: Order Comment: PT WA NTS TO WAIT UNTIL SHE IS TAKEN BACK INTO ER AND THEY START A IV ON HER,2099 Performed By: #### C K, PT, BNP, PTT, CBC, BMP, HS TROP #### [address] Monocytes/100 WBC (Bld) 18.96 % Normal 0.00-20.00 [facility] Comment on above: Order Comment: PT WA NTS TO WAIT UNTIL SHE IS TAKEN BACK INTO ER AND THEY START A IV ON HER,2099 Performed By: #### C K, PT, BNP, PTT, CBC, BMP, HS TROP #### [place] [address] [place] Monocytes/100 WBC (Bld) 8.1 % Normal . [facility] Comment on above: Order Comment: PT WA NTS TO WAIT UNTIL SHE IS TAKEN BACK INTO ER AND THEY START A IV ON HER,2099 Performed By: #### C K, PT, BNP, PTT, CBC, BMP, HS TROP #### [place] [address] [place] Neutrophils (Bld) [#/Vol] 15.0 10*3/uL High 1.8-7.7 [facility] Comment on above: Order Comment: PT WA NTS TO WAIT UNTIL SHE IS TAKEN BACK INTO ER AND THEY START A IV ON HER,2099 Performed By: #### C K, PT, BNP, PTT, CBC, BMP, HS TROP #### [address] Neutrophils/100 WBC (Bld) 77.6 % Normal . [facility] Comment on above: Order Comment: PT WA NTS TO WAIT UNTIL SHE IS TAKEN BACK INTO ER AND THEY START A IV ON HER,, 2099 Performed By: #### C K, PT, BNP, PTT, CBC, BMP, HS TROP #### [facility] [address] NRBC% 0.3 /100{WBC} Normal 0-0.5 [facility] Comment on above: Order Comment: PT WA NTS TO WAIT UNTIL SHE IS TAKEN BACK INTO ER AND THEY START A IV ON HER,2099 Performed By: #### C K, PT, BNP, PTT, CBC, BMP, HS TROP #### [facility] [address] Platelet mean volume (Bld) [Entitic vol] 8.6 fL Normal 6.3-10.7 [facility] Comment on above: Order Comment: PT WA NTS TO WAIT UNTIL SHE IS TAKEN BACK INTO ER AND THEY START A IV ON HER,2099 Performed By: #### C K, PT, BNP, PTT, CBC, BMP, HS TROP #### [place] [address] [place] Platelets (Bld) [#/Vol] 282 10*3/uL Normal 150-450 [facility] Comment on above: Order Comment: PT WA NTS TO WAIT UNTIL SHE IS TAKEN BACK INTO ER AND THEY START A IV ON HER,2099 Performed By: #### C K, PT, BNP, PTT, CBC, BMP, HS TROP #### [facility] [address] [place] [address] [place] RBC (Bld) [#/Vol] 5.20 10*6/uL High 3.60-5.00 [facility] Comment on above: Order Comment: PT WA NTS TO WAIT UNTIL SHE IS TAKEN BACK INTO ER AND THEY START A IV ON HER,2099 Performed By: #### C K, PT, BNP, PTT, CBC, BMP, HS TROP #### [facility] [address] WBC (Bld) [#/Vol] 19.4 10*3/uL High 3.8-11.6 [facility] Comment on above: Order Comment: PT WA NTS TO WAIT UNTIL SHE IS TAKEN BACK INTO ER AND THEY START A IV ON HER,, 2099 Performed By: #### C K, PT, BNP, PTT, CBC, BMP, HS TROP #### [facility] [address] Creatine kinase [Enzymatic a ctivity/volume] in Serum or PlasmaOrdered By: Ania Watson on 08-03-2024 CK [Catalytic activity/Vol] 33 U/L Normal 30-223 [facility] Comment on above: Order Comment: PT WA NTS TO WAIT UNTIL SHE IS TAKEN BACK INTO ER AND THEY START A IV ON HER,2099 Performed By: #### C K, PT, BNP, PTT, CBC, BMP, HS TROP #### [facility] [address] [place] [address] Creatinine [Mass/volume] in Serum or PlasmaOrdered By: Ania Watson on 08-03-2024 Creatinine [Mass/Vol] 0.61 mg/dL Normal 0.60-1.20 [facility] Comment on above: Order Comment: PT WA NTS TO WAIT UNTIL SHE IS TAKEN BACK INTO ER AND THEY START A IV ON HER,2099 Performed By: #### C K, PT, BNP, PTT, CBC, BMP, HS TROP #### [facility] [address] [place] [id number] [place] ECG 12 lead ECGon 08-03-2024 ECG 12 lead ECG [facility] [place] [address] [place] [id number] Electrocardiograph Report Signed Patient: Pili Parikh MR#: [id number] : 2005 Acct:[id number] Age/Sex: 19 / F ADM Date: 08/03/24 Loc: ER Room: Type: [facility] ER Attending Dr: Ordering Provider: Ania Watson [...] wave abnormality Confirmed by Ania Watson MD ([id number]) on 08/04/2024 1:34:37 AM Referred By: Electronically Signed By: Ania Watson MD Transcribed By: MUS Signed By Ania Watson MD 06/20 0134 Normal [facility] Glucose [Mass/volume] in Ser um or PlasmaOrdered By: Ania Watson on 08-03-2024 Glucose [Mass/Vol] 91 mg/dL Normal 70-100 [facility] Comment on above: ADA recommended refe rence rangeRandom Glucose Reference Range is dependent on time and content of last meal. Glucose of more than 200 mg/dL in a nonstressed, ambulatory subject supports the diagnosis of Diabetes Mellitus. Order Comment: PT WA NTS TO WAIT UNTIL SHE IS TAKEN BACK INTO ER AND THEY START A IV ON HER,KAH, 2100 Result Comment: [place] om Glucose Reference Range is dependent on time and content of last meal. Glucose of more than 200 mg/dL in a nonstressed, ambulatory subject supports the diagnosis of Diabetes Mellitus. ADA recommended reference range Performed By: #### C K, PT, BNP, PTT, CBC, BMP, HS TROP #### [facility] [address] [place] [address] INR in Platelet poor plasma by Coagulation assayOrdered By: Ania Watson on 08-03-2024 INR Coag (PPP) [Relative time] 1.2 {INR} Normal [facility] Comment on above: INR Therapeutic Rang e [...] BNP, PTT, CBC, BMP, HS TROP #### [facility] [address] No Panel InformationOrdered By: Ania Watson on 08-03-2024 Estimated GFR (CKD-EPI) > 60.0 mL/Min [facility] Creatinine Clearance (Chem 154.09 [facility] Partial Thromboplastin Timeo n 08-03-2024 aPTT Coag (Bld) [Time] 24.7 s Low 25.1-36.5 [facility] Comment on above: Order Comment: PT WA NTS TO WAIT UNTIL SHE IS TAKEN BACK INTO ER AND THEY START A IV ON HER,2099 Result Comment: A he matocrit value greater than 55% may lead to inaccurate results in coagulation testing. Patients having hematocrit values >55% require a special collection tube for coagulation studies. Please contact the laboratory at [phone] for redraw instructions. PERFORMED BY: [place] [id number] PATHOLOGIST [employer] NAY SARKAR M.D. Performed By: #### C K, PT, BNP, PTT, CBC, BMP, HS TROP #### [facility] [address] [place], [place] [id number] [facility] Potassium [Moles/volume] in Serum or PlasmaOrdered By: Ania Watson on 08-03-2024 Potassium [Moles/Vol] 3.5 mmol/L Normal 3.5-5.1 [facility] Comment on above: Hemolysis is present at a level that could interfere with the result.Contact lab if redraw is required Order Comment: PT WA NTS TO WAIT UNTIL SHE IS TAKEN BACK INTO ER AND THEY START A IV ON HER2099 Result Comment: Hemo lysis is present at a level that could interfere with the result. Contact lab if redraw is required Performed By: #### C K, PT, BNP, PTT, CBC, BMP, HS TROP #### [facility] [address] Prothrombin time (PT)Ordered By: Ania Watson on 08-03-2024 PT Coag (PPP) [Time] 13.3 s High 9.0-12.9 [facility] Comment on above: A hematocrit value g reater than 55% may lead to inaccurate results in coagulation testing. Patients having hematocrit values >55% require a special collection tube for coagulation studies. Please contact the laboratory at [phone] for redraw instructions. Order Comment: PT WA NTS TO WAIT UNTIL SHE IS TAKEN BACK INTO ER AND THEY START A IV ON HER2099 Result Comment: A he matocrit value greater than 55% may lead to inaccurate results in coagulation testing. Patients having hematocrit values >55% require a special collection tube for coagulation studies. Please contact the laboratory at [phone] for redraw instructions. Performed By: #### C K, PT, BNP, PTT, CBC, BMP, HS TROP #### [facility] [address] Serum or plasma anion gap de terminationOrdered By: Ania Watson on 08-03-2024 Anion gap [Moles/Vol] 20.0 mmol/L High 6.0-15.0 [facility] Comment on above: Order Comment: PT WA NTS TO WAIT UNTIL SHE IS TAKEN BACK INTO ER AND THEY START A IV ON HER2099 Performed By: #### C K, PT, BNP, PTT, CBC, BMP, HS TROP #### [facility] [address] [place] [id number] [facility] Sodium [Moles/volume] in Ser um or PlasmaOrdered By: Ania Watson on 09-06-2024 Sodium [Moles/Vol] 134 mmol/L Low 136-145 [facility] Comment on above: Order Comment: PT WA NTS TO WAIT UNTIL SHE IS TAKEN BACK INTO ER AND THEY START A IV ON HER,2099 Performed By: #### C K, PT, BNP, PTT, CBC, BMP, HS TROP #### [facility] [address] Troponin I High Sensitivityo n 08-03-2024 Troponin I High Sensitivity 7.0 pg/mL Normal 0.0-15.0 [facility] Comment on above: Order Comment: PT WA NTS TO WAIT UNTIL SHE IS TAKEN BACK INTO ER AND THEY START A IV ON HER,2099 Result Comment: PERF ORMED BY: [place] [address] PATHOLOGIST [employer] NAY SARKAR M.D. Performed By: #### C K, PT, BNP, PTT, CBC, BMP, HS TROP #### [facility] [address] Troponin I.cardiac [Mass/vol ume] in Serum or Plasma by Detection limit <= 0.01 ng/Ordered By: Ania Watson on 08-03-2024 Troponin I.cardiac DL <= 0.01 ng/mL [Mass/Vol] 7.0 pg/mL 0.0-15.0 [facility] Urea nitrogen [Mass/volume] in Serum or PlasmaOrdered By: Ania Watson on 08-03-2024 Urea nitrogen [Mass/Vol] 20 mg/dL Normal 7-25 [facility] Comment on above: Order Comment: PT WA NTS TO WAIT UNTIL SHE IS TAKEN BACK INTO ER AND THEY START A IV ON HER,2099 Performed By: #### C K, PT, BNP, PTT, CBC, BMP, HS TROP #### [facility] [address] [place] [id number] [place] B hCG Qualon 08-01-2024 Beta HCG ( test) Ql Negative Normal [facility] Comment on above: Performed By: #### 2 [id number] #### [facility] [address] [place] [address] BMPon 08-01-2024 Anion gap [Moles/Vol] 14 mmol/L Normal 6-16 [facility] Comment on above: Performed By: #### 2 [id number] #### [facility] [address] [place] [address] Calcium [Mass/Vol] 9.7 mg/dL Normal 8.9-11.1 [facility] Comment on above: Performed By: #### 2 [id number] #### [facility] [address] [place] [address] Chloride [Moles/Vol] 102 mmol/L Normal 101-111 [facility] Comment on above: Performed By: #### 2 [id number] #### [facility] [address] [place] [address] CO2 [Moles/Vol] 24 mmol/L Normal 21-31 [facility] Comment on above: Performed By: #### 2 [id number] #### [facility] [address] [place] [address] Creatinine [Mass/Vol] 0.7 mg/dL Normal 0.5-1.3 [facility] Comment on above: Performed By: #### 2 [id number] #### [facility] [address] [place] [address] Glucose [Mass/Vol] 96 mg/dL Normal 55-199 [facility] Comment on above: Performed By: #### 2 [id number] #### [facility] [address] [place] [address] Potassium [Moles/Vol] 3.3 mmol/L Low 3.5-5.3 [facility] Comment on above: Performed By: #### 2 [id number] #### [facility] [address] [place] [address] Sodium [Moles/Vol] 137 mmol/L Normal 135-145 [facility] Comment on above: Performed By: #### 2 [id number] #### [facility] [address] [place] [address] Urea nitrogen [Mass/Vol] 18 mg/dL Normal 5-21 [facility] Comment on above: Performed By: #### 2 [id number] #### [facility] [address] [place] [address] Urea nitrogen/Creatinine [Mass ratio] 26 No Units High 10-20 [facility] Comment on above: Performed By: #### 2 [id number] #### [facility] [address] [place] [address] CBC w/ Auto Diffon 4 Basophils/100 WBC (Bld) 0.3 % Normal 0.0-2.0 [facility] Comment on above: Performed By: #### 2 [id number] #### [facility] [address] [place] [address] Basophils/Leukocytes Auto (Bld) [Pure # fraction] 0.1 E9/L Normal 0.0-0.2 [facility] Comment on above: Performed By: #### 2 [id number] #### [facility] [address] [place] [address] Eosinophils (Bld) [#/Vol] 0.1 E9/L Normal 0.0-0.5 [facility] Comment on above: Performed By: #### 2 088201 #### [facility] [address] [place] [address] Eosinophils/100 WBC (Bld) 0.4 % Normal 0.0-8.0 [facility] Comment on above: Performed By: #### 2 [id number] #### [facility] [address] [place] [address] Erythrocyte distribution width (RBC) [Ratio] 13.3 % Normal 10.9-14.2 [facility] Comment on above: Performed By: #### 2 179171 #### [facility] [address] [place] [address] Hematocrit (Bld) [Volume fraction] 43.9 % Normal 34.0-46.0 [facility] Comment on above: Performed By: #### 2 183028 #### [facility] [address] [place] [address] Hemoglobin (Bld) [Mass/Vol] 14.5 g/dL Normal 12.0-16.0 [facility] Comment on above: Performed By: #### 2 [id number] #### [facility] [address] [place] [address] Lymphocytes (Bld) [#/Vol] 2.3 E9/L Normal 1.0-4.0 [facility] Comment on above: Performed By: #### 2 136055 #### [facility] [address] [place] [address] Lymphocytes/100 WBC (Bld) 13.7 % Low 14.0-50.0 [facility] Comment on above: Performed By: #### 2 [id number] #### [facility] [address] [place] [address] MCH (RBC) [Entitic mass] 28.3 pg Normal 27.0-34.0 [facility] Comment on above: Performed By: #### 2 [id number] #### [facility] [address] [place] [address] MCHC (RBC) [Mass/Vol] 33.0 g/dL Normal 31.4-36.0 [facility] Comment on above: Performed By: #### 2 [id number] #### [facility] [address] [place] [address] MCV (RBC) [Entitic vol] 85.8 fL Normal 80.0-100.0 [facility] Comment on above: Performed By: #### 2 622792 #### [facility] [address] [place] [address] Monocytes (Bld) [#/Vol] 1.2 E9/L High 0.2-1.0 [facility] Comment on above: Performed By: #### 2 734621 #### [facility] [address] [place] [address] Neutrophils (Bld) [#/Vol] 13.1 E9/L High 2.0-7.5 [facility] Comment on above: Performed By: #### 2 [id number] #### [facility] [address] [place] [address] Neutrophils/100 WBC (Bld) 78.5 % High 36.0-75.0 [facility] Comment on above: Performed By: #### 2 379756 #### [facility] [address] [place] [address] Platelet mean volume (Bld) [Entitic vol] 8.2 fL Normal 6.4-10.8 [facility] Comment on above: Performed By: #### 2 [id number] #### [facility] [address] [place] [address] Platelets (Bld) [#/Vol] 246.0 E9/L Normal 150.0-500. 0 [facility] Comment on above: Performed By: #### 2 023205 #### [facility] [address] [place] [address] RBC (Bld) [#/Vol] 5.1 E12/L Normal 4.3-5.9 [facility] Comment on above: Performed By: #### 2 278593 #### [facility] [address] [place] [address] WBC corrected for nucl RBC Auto (Bld) [#/Vol] 16.7 E9/L High 4.0-11.0 [facility] Comment on above: Result Comment: Sarahi pheral smear review performed. Performed By: #### 2 [id number] #### [facility] [address] [place] [address] ED Clinical Summaryon 2023 ED Clinical Summary ED Clinical Summary [address] [address] ED Clinical Summary Person Information Name: PILI PARIKH/[facility] Age: 19 Years : 2005 Sex: Female Language: Northern Irish PCP: MODESTA CHAND CNP Marital Status: Single [...] 08/01/2024 12:09:48 08/01/2024 12:09:48 ADDRESS: [address] [facility] [id number] PHYS DOC NOTES: MEDICAL INFORMATION: Prescriptions Given: New Medications [id number], [address], [place] [id number], [phone] potassium chloride (potassium chloride 20 mEq ER [...] up: With: Address: When: MODESTA CHAND [address] [place] [address] [phone] Business (1) In 3 days 08/04/2024 Comments: Make sure to fill the prescriptions that was prescribed from [place]. Fill the new prescription for potassium. Follow-up with your primary doctor as discussed. Return to the emergency room if your vomiting recurs, abdominal pain recurs or any new symptoms. DIAGNOSIS: 1:Vomiting and diarrhea; 2:Hypokalemia; 3:Leukocytosis; Diarrhea, unspecified Normal [facility] ED Note-Physicianon 08-01-20 ED Note-Physician ED Note-Physician Basic Information Time Seen: August Beck M.D. 08/01/2024 09:27 Chief Complaint just left [facility], seen multiple times for n/v lightheaded. hx cyclic vomiting, state its not that. has medication at [facility] but wanted to come here [...] any sick contact. The patient was at [facility] and they did send medication to [facility] however she feels she is [...] and Complexity of Problems Differential Diagnosis: [] [facility] Data External documents reviewed: [] My [...] day(s), # 4 tab(s), Refills(s) 0, Pharmacy: [facility]/pharmacy #[id number], 157, cm, 08/01/24 9:34:00 [...] Disposition Dis (more content not included)... Normal [facility] Comment on above: Result Comment: Elec tronically Signed By: Ebony Birmingham August Carbone\.br\Date and Time Signed: 08/01/24 11:58 EDT ED Patient Summaryon 024 ED Patient Summary ED Patient Summary [place] [id number] Patient Discharge Instructions Person Information Name: PILI PARIKH Age: 19 Years Arrival Date: 08/01/2024 09:23:00 Discharge Diagnosis: 1:Vomiting and diarrhea; 2:Hypokalemia; 3:Leukocytosis; Diarrhea, unspecified Primary Care Physician: MODESTA CHAND CNP Provider Information Primary Provider: August Beck M.D. Advanced Cord Splicer:None The exam and treatment you received in the Emergency Department were for an urgent problem and are not intended as complete care. It is important that you follow up with a doctor, nurse practitioner, or physician?s technology assistant for ongoing care. If your symptoms become worse or you do not improve as expected and you are unable to reach your usual health care provider, you should return to the Emergency Department. We are available 24 hours a day. PILI PARIKH has been given the following list of patient education materials, prescriptions and follow-up instructions: Follow-up Instructions: With: Address: When: MODESTA NIKUNJ [address] [place] [phone] Business (1) In 3 days 08/04/2024 Comments: Make sure to fill the prescriptions that was prescribed from [place]. Fill the new prescription for potassium. Follow-up [...] opioids can be used to help relieve gvpqezxc-ha-egyits pain and are often prescribed following a [...] the to (more content not included)... Normal [facility] Hep Func Panelon 08-01-2024 Albumin [Mass/Vol] 5.1 g/dL High 3.3-5.0 [facility] Comment on above: Performed By: #### 2 [id number] #### [facility] [address] [place] [address] Albumin/Globulin (S) [Mass conc ratio] 1.7 Normal 1.1-2.2 [facility] Comment on above: Performed By: #### 2 [id number] #### [facility] [address] [place] [address] ALP [Catalytic activity/Vol] 75 Int._Unit/L Normal 21-98 [facility] Comment on above: Performed By: #### 2 [id number] #### [facility] [address] [place] [address] ALT No additional P-5'-P [Catalytic activity/Vol] 45 Int._Unit/L Normal 6-46 [facility] Comment on above: Performed By: #### 2 [id number] #### [facility] [address] [place] [address] AST [Catalytic activity/Vol] 25 Int._Unit/L Normal 5-43 [facility] Comment on above: Performed By: #### 2 [id number] #### [facility] [address] [place] [address] Bilirubin [Mass/Vol] 0.9 mg/dL Normal 0.0-1.1 [facility] Comment on above: Performed By: #### 2 322647 #### [facility] [address] [place] [address] Bilirubin.direct [Mass/Vol] 0.1 mg/dL Normal 0.0-0.4 [facility] Comment on above: Performed By: #### 2 [id number] #### [facility] [address] [place] [address] Bilirubin.indirect [Mass or moles/Vol] 0.8 mg/dL Normal 0.1-0.9 [facility] Comment on above: Performed By: #### 2 [id number] #### [facility] [address] [place] [address] Globulin (S) [Mass/Vol] 3.0 g/dL Normal 1.4-4.0 [facility] Comment on above: Performed By: #### 2 896274 #### [facility] [address] [place] [address] Protein [Mass/Vol] 8.1 g/dL High 6.0-7.8 [facility] Comment on above: Performed By: #### 2 098757 #### [facility] [address] [place] [address] Lipase Levelon 08-01-2024 Lipase [Catalytic activity/Vol] 27 U/L Normal 13-58 [facility] Comment on above: Performed By: #### 2 046831 #### [facility] [address] [place] [address] Magnesiumon 08-01-2024 Magnesium [Mass/Vol] 2.2 mg/dL Normal 1.3-2.4 [facility] Comment on above: Performed By: #### 2 124241 #### [facility] [address] [place] [address] PT & PTTon 08-01-2024 aPTT Coag (PPP) [Time] 31.2 second(s) Normal 25.1-36.5 [facility] Comment on above: Result Comment: [...] the same coagulation reagent and instrumentation as [facility]. Currently there are no coagulation studies available worldwide for children to 14 days, and no normal ranges. Heparin therapeutic range (represented by Anti-Factor Xa activity of 0.2 - 0.4 U/mL) corresponds to PTT of 56.6 - 109.0 sec. Performed By: #### 1 [id number] #### [facility] [address] [place] [address] INR Coag (PPP) [Relative time] 1.11 {INR} Invalid Interpretation Code [facility] Comment on above: Result Comment: INR results are specifically intended to assess patients stabilized on long-term Anticoagulation therapy suggested INR?s ?Less Intensive Anticoagulation? 2.0 ? 3.0 Conventional Range 3.0 ? 4.5 Performed By: #### 1 [id number] #### [facility] [address] [place] [address] PT Coag (PPP) [Time] 12.5 second(s) Normal 9.4-12.5 [facility] Comment on above: Result Comment: [...] the same coagulation reagent and instrumentation as [facility]. Currently there are no coagulation studies available worldwide for children to 14 days, and no normal ranges. Performed By: #### 1 [id number] #### [facility] [address] [place] [address] Troponin 0 Hr.on 08-01-2024 Troponin HS 5.20 pg/mL Low 10.10-27.1 0 [facility] Comment on above: Result Comment: The 95% CI (Confidence Interval) PPV (Positive Predictive Value) for myocardial infarction in females is 38 pg/mL, in males 51 pg/mL. The results should be used in conjunction with clinical conditions of myocardial infarction. (Access High Sensitivity Troponin I Instructions For Use, [place], June 2018) Performed By: #### 1 [id number] #### [facility] [address] [place] [address] eGFRon 08-01-2024 eGFR 126 mL/min/1.73 m2 Normal >=59 [facility] Comment on above: Order Comment: Order added by Discern Expert. Performed By: #### 1 [id number] #### [facility] [address] [place] [address] BMPon 07-30-2024 Anion gap [Moles/Vol] 13 mmol/L Normal 6-16 [facility] Comment on above: Performed By: #### 2 826109 #### [facility] [address] [place] [address] Calcium [Mass/Vol] 9.4 mg/dL Normal 8.9-11.1 [facility] Comment on above: Performed By: #### 2 579403 #### [facility] [address] [place] [address] Chloride [Moles/Vol] 107 mmol/L Normal 101-111 [facility] Comment on above: Performed By: #### 2 619059 #### [facility] [address] [place] [address] CO2 [Moles/Vol] 25 mmol/L Normal 21-31 [facility] Comment on above: Performed By: #### 2 380919 #### [facility] [address] [place] [address] Creatinine [Mass/Vol] 0.8 mg/dL Normal 0.5-1.3 [facility] Comment on above: Performed By: #### 2 974561 #### [facility] [address] [place] [address] Glucose [Mass/Vol] 89 mg/dL Normal 55-199 [facility] Comment on above: Performed By: #### 2 671716 #### [facility] [address] [place] [address] Potassium [Moles/Vol] 3.6 mmol/L Normal 3.5-5.3 [facility] Comment on above: Performed By: #### 2 309400 #### [facility] [address] [place] [address] Sodium [Moles/Vol] 141 mmol/L Normal 135-145 [facility] Comment on above: Performed By: #### 2 188502 #### [facility] [address] [place] [address] Urea nitrogen [Mass/Vol] 19 mg/dL Normal 5-21 [facility] Comment on above: Performed By: #### 2 872498 #### [facility] [address] [place] [address] Urea nitrogen/Creatinine [Mass ratio] 24 No Units High 10-20 [facility] Comment on above: Performed By: #### 2 986959 #### [facility] [address] [place] [address] CBC w/ Auto Diffon 4 Basophils/100 WBC (Bld) 0.4 % Normal 0.0-2.0 [facility] Comment on above: Performed By: #### 2 271533 #### [facility] [address] [place] [address] Basophils/Leukocytes Auto (Bld) [Pure # fraction] 0.1 E9/L Normal 0.0-0.2 [facility] Comment on above: Performed By: #### 2 947333 #### [facility] [address] [place] [address] Eosinophils (Bld) [#/Vol] 0.1 E9/L Normal 0.0-0.5 [facility] Comment on above: Performed By: #### 2 124811 #### [facility] [address] [place] [address] Eosinophils/100 WBC (Bld) 0.5 % Normal 0.0-8.0 [facility] Comment on above: Performed By: #### 2 125806 #### [facility] [address] [place] [address] Erythrocyte distribution width (RBC) [Ratio] 13.2 % Normal 10.9-14.2 [facility] Comment on above: Performed By: #### 2 551583 #### [facility] [address] [place] [address] Hematocrit (Bld) [Volume fraction] 39.6 % Normal 34.0-46.0 [facility] Comment on above: Performed By: #### 2 547446 #### [facility] [address] [place] [address] Hemoglobin (Bld) [Mass/Vol] 13.7 g/dL Normal 12.0-16.0 [facility] Comment on above: Performed By: #### 2 540724 #### [facility] [address] [place] [address] Lymphocytes (Bld) [#/Vol] 2.3 E9/L Normal 1.0-4.0 [facility] Comment on above: Performed By: #### 2 116939 #### [facility] [address] [place] [address] Lymphocytes/100 WBC (Bld) 14.1 % Normal 14.0-50.0 [facility] Comment on above: Performed By: #### 2 252714 #### [facility] [address] [place] [address] MCH (RBC) [Entitic mass] 29.4 pg Normal 27.0-34.0 [facility] Comment on above: Performed By: #### 2 906031 #### [facility] [address] [place] [address] MCHC (RBC) [Mass/Vol] 34.5 g/dL Normal 31.4-36.0 [facility] Comment on above: Performed By: #### 2 722977 #### [facility] [address] [place] [address] MCV (RBC) [Entitic vol] 85.3 fL Normal 80.0-100.0 [facility] Comment on above: Performed By: #### 2 867862 #### [facility] [address] [place] [address] Monocytes (Bld) [#/Vol] 1.2 E9/L High 0.2-1.0 [facility] Comment on above: Performed By: #### 2 815616 #### [facility] [address] [place] [address] Neutrophils (Bld) [#/Vol] 12.6 E9/L High 2.0-7.5 [facility] Comment on above: Performed By: #### 2 735101 #### [facility] [address] [place] [address] Neutrophils/100 WBC (Bld) 77.5 % High 36.0-75.0 [facility] Comment on above: Performed By: #### 2 669351 #### [facility] [address] [place] [address] Platelet 260.0 E9/L Normal 150.0-500. 0 [facility] Comment on above: Performed By: #### 2 788805 #### [facility] [address] [place] [address] Platelet mean volume (Bld) [Entitic vol] 8.1 fL Normal 6.4-10.8 [facility] Comment on above: Performed By: #### 2 227414 #### [facility] [address] [place] [address] RBC (Bld) [#/Vol] 4.7 E12/L Normal 4.3-5.9 [facility] Comment on above: Performed By: #### 2 668400 #### [facility] [address] [place] [address] WBC corrected for nucl RBC Auto (Bld) [#/Vol] 16.2 E9/L High 4.0-11.0 [facility] Comment on above: Performed By: #### 2 697264 #### [facility] [address] [place] [address] CHEMISTRYOrdered By: Manish carpio on 07-30-2024 Albumin [...] 2023 ED Clinical Summary ED Clinical Summary [place] [id number] ED Clinical Summary Person Information Name: PILI PARIKH/[facility] Age: 19 Years : 2005 Sex: Female Language: Northern Irish PCP: MODESTA ARCHIBALD Marital Status: Single Visit [...] 07/30/2024 22:55:49 07/30/2024 22:55:49 07/30/2024 22:55:49 ADDRESS: [facility] [facility] [id number] PHYS DOC NOTES: MEDICAL INFORMATION: Prescriptions Given: New Medications [facility]/pharmacy #[id number], [address], [place] [id number], [phone] ondansetron (Zofran ODT 4 mg Tab-Dis) 1 Tablets By Mouth every 8 hours as needed Nausea/Vomiting. Refills: 0. Medications to Continue Taking That Have Changed [facility]/pharmacy #[id number], [address], [place] [id number], [phone] START: promethazine (Phenergan 12.5 mg Supp) 1 [...] Adult Follow up: With: Address: When: FAMILIA CHAND [facility] [place] [id number] Business (1) In 3 days 08/02/2024 DIAGNOSIS: AP (abdominal pain); N&V (nausea and vomiting) Normal [facility] ED Note-Physicianon 07-30-20 ED Note-Physician ED [...] and Complexity of Problems Differential Diagnosis: [] [facility] Data External documents reviewed: N/A My [...] Nausea/Vomiting, # 16 tab(s), Refills(s) 0, Pharmacy: [facility]/pharmacy #[id number], 157, cm, 07/30/24 19:37:00 EDT, Height/Length Dosing, 96.1, kg, 07/30/24 19:37:00 EDT, Weight Dosing promethazine, 12.5 mg = 1 tab(s), Oral, q8hr, PRN as needed for nausea/vomiting, second line, # 10 tab(s), Refills(s) 0, Pharmacy: [facility]/pharmacy #[id number], 157, cm, 07/30/24 19:37:00 EDT, Height/Length Dosing, 96.1, kg, 07/30/24 19:37:00 EDT, Weight Dosing promethazine, 12.5 mg = 1 supp, Rectal, q8hr, PRN as needed for nausea/vomiting, 3rd line, # 6 EA, Refills(s) 0, Pharmacy: [facility]/pharmacy #[id number], 157, cm, 07/30/24 19:37:00 [...] Level Saline Lock Insert Medications Administered Given [id number] [F] 1000 mg + GenDil 100 mL, IV Piggyback famotidine 10 mg/mL IV Lisa, 20 mg, IV Push NS 1000 ml Bolus, 1000 mL, IV [id number] [F] 12.5 mg + Sodium Chloride 0.9% IV Lisa 50 mL [F] 50 mL, IV Piggyback Disposition Plan Discharge Prescription List Prescriptions Phenergan 12.5 mg Supp, 12.5 mg= 1 supp, Rectal, q8hr, PRN promethazine 12.5 mg oral tablet, 12.5 mg= 1 tab(s), Oral, q8hr, PRN Zofran ODT 4 mg Tab-Dis, 4 mg= 1 tab(s), Or (more content not included)... Normal [facility] Comment on above: Result Comment: Elec tronically Signed By: Dustin Villalobos DO\.br\Date and Time Signed: 07/30/24 22:50 EDT ED Patient Summaryon 024 ED Patient Summary ED Patient Summary [place] [id number] Patient Discharge Instructions Person Information Name: PILI PARIKH Age: 19 Years Arrival Date: 07/30/2024 19:26:13 Discharge Diagnosis: AP (abdominal pain); N&V (nausea and vomiting) Primary Care Physician: MODESTA ARCHIBALD Provider Information Primary Provider: Dustin Villalobos DO Advanced Cord Splicer:None The exam and treatment you received in the Emergency Department were for an urgent problem and are not intended as complete care. It is important that you follow up with a doctor, nurse practitioner, or physician?s technology assistant for ongoing care. If your symptoms [...] Follow-up Instructions: With: Address: When: FAMILIA CHAND [facility] [place] [phone] Business (1) In 3 days 08/02/2024 In the event that this physician does not participate in your insurance network, please consult with your insurance company to find a nearby participating provider. Patient Education Materials: Nausea and Vomiting, Adult A MESSAGE TO ALL PATIENTS REGARDING OPIOIDS PRESCRIPTION OPIOIDS: WHAT YOU NEED TO KNOW Prescription opioids can be used to help relieve fpkcbdpi-es-cpbows pain and are often prescribed following a [...] be struggling with addiction, tell your health pet care worker and ask for guidance or call [facility]?S National [employer] (more content not included)... Normal [facility] HEMATOLOGYOrdered By: SYSTEM SYSTEM on 07-30-2024 [...] 07-30-2024 Albumin [Mass/Vol] 4.7 g/dL Normal 3.3-5.0 [facility] Comment on above: Performed By: #### 2 [id number] #### [facility] [address] [place] [address] Albumin/Globulin (S) [Mass conc ratio] 1.7 Normal 1.1-2.2 [facility] Comment on above: Performed By: #### 2 543543 #### [facility] [address] [place] [address] ALP [Catalytic activity/Vol] 73 Int._Unit/L Normal 21-98 [facility] Comment on above: Performed By: #### 2 466033 #### [facility] [address] [place] [address] ALT No additional P-5'-P [Catalytic activity/Vol] 46 Int._Unit/L Normal 6-46 [facility] Comment on above: Performed By: #### 2 384144 #### [facility] [address] [place] [address] AST [Catalytic activity/Vol] 24 Int._Unit/L Normal 5-43 [facility] Comment on above: Performed By: #### 2 074964 #### [facility] [address] [place] [address] Bilirubin [Mass/Vol] 0.7 mg/dL Normal 0.0-1.1 [facility] Comment on above: Performed By: #### 2 638388 #### [facility] [address] [place] [address] Bilirubin.direct [Mass/Vol] 0.1 mg/dL Normal 0.0-0.4 [facility] Comment on above: Performed By: #### 2 780450 #### [facility] [address] [place] [address] Bilirubin.indirect [Mass or moles/Vol] 0.6 mg/dL Normal 0.1-0.9 [facility] Comment on above: Performed By: #### 2 689004 #### [facility] [address] [place] [address] Globulin (S) [Mass/Vol] 2.8 g/dL Normal 1.4-4.0 [facility] Comment on above: Performed By: #### 2 963948 #### [facility] [address] [place] [address] Protein [Mass/Vol] 7.5 g/dL Normal 6.0-7.8 [facility] Comment on above: Performed By: #### 2 602923 #### [facility] [address] [place] [address] Lipase Levelon 07-30-2024 Lipase [Catalytic activity/Vol] 10 U/L Low 13-58 [facility] Comment on above: Performed By: #### 2 854034 #### [facility] [address] [place] [address] Magnesiumon 07-30-2024 Magnesium [Mass/Vol] 2.2 mg/dL Normal 1.3-2.4 [facility] Comment on above: Performed By: #### 2 873777 #### [facility] [address] [place] [address] eGFRon 07-30-2024 eGFR 108 mL/min/1.73 m2 Normal >=59 [facility] Comment on above: Order Comment: Order added by Discern Expert. Performed By: #### 1 [id number] #### [facility] [address] [place] [address] Alanine aminotransferase [En zymatic activity/volume] in Serum or PlasmaOrdered By: Jacinto Benitez on 03-18-2024 ALT [Catalytic activity/Vol] 25 U/L Normal 7-52 [facility] Comment on above: Performed By: #### C K, PT, BNP, PTT, CBC, BMP, HS TROP #### [facility] [address] [place] [address] [facility] Albumin [Mass/volume] in Ser um or Plasma by Bromocresol green (BCG) dye binding methoOrdered By: Jacinto Benitez on 03-18-2024 Albumin BCG dye [Mass/Vol] 5.3 g/dL 3.5-5.7 [facility] Alkaline phosphatase [Enzyma tic activity/volume] in Serum or PlasmaOrdered By: Jacinto Benitez on 03-18-2024 ALP [Catalytic activity/Vol] 82 U/L Normal 34-104 [facility] Comment on above: Performed By: #### C K, PT, BNP, PTT, CBC, BMP, HS TROP #### [address] Aspartate aminotransferase [ Enzymatic activity/volume] in Serum or PlasmaOrdered By: Jacinto Benitez on 03-18-2024 AST [Catalytic activity/Vol] 23 U/L Normal 13-39 [facility] Comment on above: Performed By: #### C K, PT, BNP, PTT, CBC, BMP, HS TROP #### [address] Automated basophil %Ordered By: Jacinto Benitez on 03-18-2024 Basophils/100 WBC (Bld) 0.4 % Normal . [facility] Comment on above: Performed By: #### C K, PT, BNP, PTT, CBC, BMP, HS TROP #### [address] Automated basophil countOrde red By: Jacinto Benitez on 03-18-2024 Basophils (Bld) [#/Vol] 0.1 10*3/uL Normal 0.0-0.2 [facility] Comment on above: Result Comment: PERF ORMED BY: [place] [address] PATHOLOGIST [employer] NAY SARKAR M.D. Performed By: #### C K, PT, BNP, PTT, CBC, BMP, HS TROP #### [address] Automated blood monocyte cou ntOrdered By: Jacinto Benitez on 03-18-2024 Monocytes (Bld) [#/Vol] 1.4 10*3/uL High 0.0-0.8 [facility] Comment on above: Performed By: #### C K, PT, BNP, PTT, CBC, BMP, HS TROP #### [address] Automated eosinophil %Ordere d By: Jacinto Benitez on 03-18-2024 Eosinophils/100 WBC (Bld) 2.3 % Normal . [facility] Comment on above: Performed By: #### C K, PT, BNP, PTT, CBC, BMP, HS TROP #### [address] Automated eosinophil countOr dered By: Jacinto Benitez on 03-18-2024 Eosinophils (Bld) [#/Vol] 0.4 10*3/uL Normal 0.0-0.45 [facility] Comment on above: Performed By: #### C K, PT, BNP, PTT, CBC, BMP, HS TROP #### [address] Automated monocyte %Ordered By: Jacinto Benitez on 03-18-2024 Monocytes/100 WBC (Bld) 7.6 % Normal . [facility] Comment on above: Performed By: #### C K, PT, BNP, PTT, CBC, BMP, HS TROP #### [address] Automated neutrophil %Ordere d By: Jacinto Benitez on 03-18-2024 Neutrophils/100 WBC (Bld) 68.8 % Normal . [facility] Comment on above: Performed By: #### C K, PT, BNP, PTT, CBC, BMP, HS TROP #### [address] Bilirubin.total [Mass/volume ] in Serum or PlasmaOrdered By: Jacinto Benitez on 03-18-2024 Bilirubin [Mass/Vol] 0.9 mg/dL Normal 0.3-1.0 [facility] Comment on above: Performed By: #### C K, PT, BNP, PTT, CBC, BMP, HS TROP #### [address] Calcium [Mass/volume] in Ser um or PlasmaOrdered By: Jacinto Benitez on 04-21-2024 Calcium [Mass/Vol] 10.4 mg/dL High 8.6-10.3 [facility] Comment on above: Performed By: #### C K, PT, BNP, PTT, CBC, BMP, HS TROP #### [facility] [address] Carbon dioxide, total [Moles /volume] in Serum or PlasmaOrdered By: Jacinto Benitez on 03-18-2024 CO2 [Moles/Vol] 18.4 mmol/L Low 21.0-31.0 [facility] Comment on above: Performed By: #### C K, PT, BNP, PTT, CBC, BMP, HS TROP #### [facility] [address] Chloride [Moles/volume] in [place] or PlasmaOrdered By: Jacinto Benitez on 03-18-2024 Chloride [Moles/Vol] 94 mmol/L Low 98-107 [facility] Comment on above: Performed By: #### C K, PT, BNP, PTT, CBC, BMP, HS TROP #### [address] Choriogonadotropin.beta subu nit [Units/volume] in Serum or PlasmaOrdered By: Jacinto Benitez on 03-18-2024 HCG.beta subunit Qn Negative [facility] Complete Blood Count Auto Di ffon 03-18-2024 Mean Corpuscular HGB Conc 33.9 g/dL Normal 32.0-35.0 [facility] Comment on above: Performed By: #### C K, PT, BNP, PTT, CBC, BMP, HS TROP #### [place] [address] [place] Monocytes/100 WBC (Bld) 16.34 % Normal 0.00-20.00 [facility] Comment on above: Performed By: #### C K, PT, BNP, PTT, CBC, BMP, HS TROP #### [facility] [address] NRBC% 0.1 /100{WBC} Normal 0-0.5 [facility] Comment on above: Performed By: #### C K, PT, BNP, PTT, CBC, BMP, HS TROP #### [facility] [address] Comprehensive Metabolic Pane tushar 03-18-2024 Albumin [Mass/Vol] 5.3 g/dL Normal 3.5-5.7 [facility] Comment on above: Performed By: #### C K, PT, BNP, PTT, CBC, BMP, HS TROP #### [facility] [address] Anion gap [Moles/Vol] Not performed Normal 6.0-15.0 [facility] Comment on above: Performed By: #### C K, PT, BNP, PTT, CBC, BMP, HS TROP #### [address] Creatinine Clr Calc Pharmacy 120.98 Normal [facility] Comment on above: Performed By: #### C K, PT, BNP, PTT, CBC, BMP, HS TROP #### [address] GFR/1.73 sq M.predicted MDRD (S/P/Bld) [Vol rate/Area] mL/min/{1.73_m2} Normal [facility] Comment on above: Performed By: #### C K, PT, BNP, PTT, CBC, BMP, HS TROP #### [address] Potassium Normal 3.5-5.1 [facility] Comment on above: Result Comment: Spec imen hemolyzed, redraw requested Results called at 2349 on 03/18/24 Performed By: #### C K, PT, BNP, PTT, CBC, BMP, HS TROP #### [address] Creatinine [Mass/volume] in Serum or PlasmaOrdered By: Jacinto Benitez on 03-18-2024 Creatinine [Mass/Vol] 0.80 mg/dL Normal 0.60-1.20 [facility] Comment on above: Performed By: #### C K, PT, BNP, PTT, CBC, BMP, HS TROP #### [facility] [address] [place] [id number] [facility] ECG 12 lead ECGon 03-18-2024 ECG 12 lead ECG [facility] Main [place] [address] [place] [address] Electrocardiograph Report Signed Patient: Pili Parikh MR#: [id number] 1526 : 2005 Acct:[id number] Age/Sex: 19 / F ADM Date: 03/18/24 Loc: ER Room: Type: [facility] ER Attending Dr: Ordering Provider: [...] Jacinto Benitez MD 03/19/24 0105 Normal [facility] Erythrocyte distribution wid th [Ratio] by Automated countOrdered By: Jacinto Benitez on 03-18-2024 Erythrocyte distribution width (RBC) [Ratio] 14.3 % Normal 11.9-15.3 [facility] Comment on above: Performed By: #### C K, PT, BNP, PTT, CBC, BMP, HS TROP #### [facility] [address] [place] [address] Erythrocytes [#/volume] in B lood by Automated countOrdered By: Jacinto Benitez on 03-18-2024 RBC (Bld) [#/Vol] 5.79 10*6/uL High 3.60-5.00 [facility] Comment on above: Performed By: #### C K, PT, BNP, PTT, CBC, BMP, HS TROP #### [address] Glucose [Mass/volume] in Ser um or PlasmaOrdered By: Jacinto Benitez on 03-18-2024 Glucose [Mass/Vol] 95 mg/dL Normal 70-100 [facility] Comment on above: ADA recommended refe rence rangeRandom Glucose Reference Range is dependent on time and content of last meal. Glucose of more than 200 mg/dL in a nonstressed, ambulatory subject supports the diagnosis of Diabetes Mellitus. Result Comment: [place] om Glucose Reference Range is dependent on time and content of last meal. Glucose of more than 200 mg/dL in a nonstressed, ambulatory subject supports the diagnosis of Diabetes Mellitus. ADA recommended reference range Performed By: #### C K, PT, BNP, PTT, CBC, BMP, HS TROP #### [address] HCG,Qualitative Serumon 02-27 HCG,Qualitative Serum Negative Normal [facility] Comment on above: Result Comment: PERF ORMED BY: [place] [address] PATHOLOGIST [employer] NAY SARKAR M.D. Performed By: #### C K, PT, BNP, PTT, CBC, BMP, HS TROP #### [address] Hematocrit [Volume Fraction] of Blood by Automated countOrdered By: Jacinto Benitez on 03-18-2024 Hematocrit (Bld) [Volume fraction] 48.2 % High 34.0-46.4 [facility] Comment on above: Performed By: #### C K, PT, BNP, PTT, CBC, BMP, HS TROP #### [address] Hemoglobin [Mass/volume] in BloodOrdered By: Jacinot Benitez on 03-18-2024 Hemoglobin (Bld) [Mass/Vol] 16.3 g/dL High 11.8-15.4 [facility] Comment on above: Performed By: #### C K, PT, BNP, PTT, CBC, BMP, HS TROP #### [address] [place] [address] [place] Leukocytes [#/volume] correc venkata for nucleated erythrocytes in Blood by Automated counOrdered By: Jacinto Benitez on 03-18-2024 WBC corrected for nucl RBC Auto (Bld) [#/Vol] 18.5 10*3/uL 3.8-11.6 [facility] Leukocytes [#/volume] in Blo od by Automated countOrdered By: Jacinto Benitez on 03-18-2024 WBC (Bld) [#/Vol] 18.5 10*3/uL High 3.8-11.6 [facility] Comment on above: Performed By: #### C K, PT, BNP, PTT, CBC, BMP, HS TROP #### [address] Lymphocytes [#/volume] in Bl ood by Automated countOrdered By: Jacinto Benitez on 03-18-2024 Lymphocytes (Bld) [#/Vol] 3.9 10*3/uL Normal 1.00-4.8 [facility] Comment on above: Performed By: #### C K, PT, BNP, PTT, CBC, BMP, HS TROP #### [address] Lymphocytes/100 leukocytes i n Blood by Automated countOrdered By: Jacinto Benitez on 03-18-2024 Lymphocytes/100 WBC (Bld) 20.9 % Normal . [facility] Comment on above: Performed By: #### C K, PT, BNP, PTT, CBC, BMP, HS TROP #### [address] MCH [Entitic mass] by Automa venkata countOrdered By: Jacinto Benitez on 03-18-2024 MCH (RBC) [Entitic mass] 28.2 pg Normal 24.7-34.3 [facility] Comment on above: Performed By: #### C K, PT, BNP, PTT, CBC, BMP, HS TROP #### [address] MCHC Auto (RBC) [Mass/Vol]Or dered By: Jacinto Benitez on 03-18-2024 MCHC (RBC) [Mass/Vol] 33.9 g/dL 32.0-35.0 [facility] MCV [Entitic volume] by Auto mated countOrdered By: Jacinto Benitez on 03-18-2024 MCV (RBC) [Entitic vol] 83.2 fL Normal 80-100 [facility] Comment on above: Performed By: #### C K, PT, BNP, PTT, CBC, BMP, HS TROP #### [facility] [address] Monocyte distribution width [Entitic volume] in Blood by AutomatedOrdered By: Jacinto Benitez on 03-18-2024 Monocyte distribution width Auto (Bld) [Entitic vol] 16.34 % 0.00-20.00 [facility] Neutrophils [#/volume] in Bl ood by Automated countOrdered By: Jacinto Benitez on 03-18-2024 Neutrophils (Bld) [#/Vol] 12.7 10*3/uL High 1.8-7.7 [facility] Comment on above: Performed By: #### C K, PT, BNP, PTT, CBC, BMP, HS TROP #### [facility] [address] No Panel InformationOrdered By: Jacinto Benitez on 03-18-2024 Estimated GFR (CKD-EPI) > 60.0 mL/Min [facility] Creatinine Clearance (Chem 120.98 [facility] Nucleated erythrocytes [Pres ence] in Blood by Automated countOrdered By: Jacinto Benitez on 03-18-2024 Nucleated RBC Auto Ql (Bld) 0.1 /100{WBC} 0-0.5 [facility] Platelet mean volume [Entiti c volume] in Blood by Automated countOrdered By: Jacinto Benitez on 03-18-2024 Platelet mean volume (Bld) [Entitic vol] 8.5 fL Normal 6.3-10.7 [facility] Comment on above: Performed By: #### C K, PT, BNP, PTT, CBC, BMP, HS TROP #### [facility] [address] [place] [address] [place] Platelets [#/volume] in Bloo d by Automated countOrdered By: Jacinto Benitez on 03-18-2024 Platelets (Bld) [#/Vol] 358 10*3/uL Normal 150-450 [facility] Comment on above: Performed By: #### C K, PT, BNP, PTT, CBC, BMP, HS TROP #### [facility] [address] [place] [address] Potassium [Moles/volume] in Serum or PlasmaOrdered By: Jacinto Benitez on 03-18-2024 Potassium [Moles/Vol] See comment 3.5-5.1 [facility] Comment on above: Specimen hemolyzed, redraw requestedResults calledat 2349 on 03/18/24 Protein [Mass/volume] in Ser um or PlasmaOrdered By: Jacinto Benitez on 03-18-2024 Protein [Mass/Vol] 8.1 g/dL Normal 6.4-8.9 [facility] Comment on above: Performed By: #### C K, PT, BNP, PTT, CBC, BMP, HS TROP #### [facility] [address] [place] [address] Serum globulin measurement b y calculation (mass/volume)Ordered By: Jacinto Benitez on 03-18-2024 Globulin (S) [Mass/Vol] 2.8 g/dL [facility] Comment on above: Performed By: #### C K, PT, BNP, PTT, CBC, BMP, HS TROP #### [facility] [address] [place] [address] Serum or plasma albumin/glob ulin mass ratioOrdered By: Jacinto Benitez on 03-18-2024 Albumin/Globulin [Mass ratio] 1.9 {ratio} [facility] Comment on above: Performed By: #### C K, PT, BNP, PTT, CBC, BMP, HS TROP #### [facility] [address] [place] [address] Serum or plasma anion gap de terminationOrdered By: Jacinto Benitez on 03-18-2024 Anion gap [Moles/Vol] TNP [facility] Comment on above: Test not performed Sodium [Moles/volume] in Ser um or PlasmaOrdered By: Jacinto Benitez on 03-18-2024 Sodium [Moles/Vol] 134 mmol/L Low 136-145 [facility] Comment on above: Performed By: #### C K, PT, BNP, PTT, CBC, BMP, HS TROP #### [facility] [address] Urea nitrogen [Mass/volume] in Serum or PlasmaOrdered By: Jacinto Benitez on 03-18-2024 Urea nitrogen [Mass/Vol] 27 mg/dL High 7-25 [facility] Comment on above: Performed By: #### C K, PT, BNP, PTT, CBC, BMP, HS TROP #### [facility] [address] CBC w/ Auto Diffon Basophils/100 WBC (Bld) 0.4 % Normal 0.0-2.0 [facility] Comment on above: Performed By: #### 2 629451, 42101656, 9592456, 9335742 ####[facility] [address] [place] [address] Basophils/Leukocytes Auto (Bld) [Pure # fraction] 0.1 E9/L Normal 0.0-0.2 [facility] Comment on above: Performed By: #### 2 420604, 30643848, 3330702, 4249296 ####[facility] [address] [place] [address] Eosinophils (Bld) [#/Vol] 0.0 E9/L Normal 0.0-0.5 [facility] Comment on above: Performed By: #### 2 736572, 85343170, 5724760, 0329245 ####[facility] [address] [place] [address] Eosinophils/100 WBC (Bld) 0.3 % Normal 0.0-8.0 [facility] Comment on above: Performed By: #### 2 729438, 93947234, 9089148, 9245412 ####[facility] [address] [place] [address] Erythrocyte distribution width (RBC) [Ratio] 14.1 % Normal 10.9-14.2 [facility] Comment on above: Performed By: #### 2 400906, 91060329, 6642553, 3453960 ####[facility] [address] [place] [address] Hematocrit (Bld) [Volume fraction] 44.0 % Normal 34.0-46.0 [facility] Comment on above: Performed By: #### 2 658412, 57126013, 4961974, 8271550 ####[address] [address] Hemoglobin (Bld) [Mass/Vol] 14.4 g/dL Normal 12.0-16.0 [facility] Comment on above: Performed By: #### 2 505443, 51111351, 8877557, 1670089 ####[address] [address] Lymphocytes (Bld) [#/Vol] 2.2 E9/L Normal 1.0-4.0 [facility] Comment on above: Performed By: #### 2 882187, 47049413, 1688302, 2911684 ####[address] [address] Lymphocytes/100 WBC (Bld) 15.8 % Normal 14.0-50.0 [facility] Comment on above: Performed By: #### 2 590600, 20485383, 4329255, 1800315 ####[address] [address] MCH (RBC) [Entitic mass] 27.8 pg Normal 27.0-34.0 [facility] Comment on above: Performed By: #### 2 645173, 52261874, 6402162, 0433010 ####[address] [address] MCHC (RBC) [Mass/Vol] 32.6 g/dL Normal 31.4-36.0 [facility] Comment on above: Performed By: #### 2 042312, 69716035, 7750694, 2378266 ####[place] [address] [place] [address] MCV (RBC) [Entitic vol] 85.2 fL Normal 80.0-100.0 [facility] Comment on above: Performed By: #### 2 548458, 60412344, 7733110, 4788508 ####[address] [address] Monocytes (Bld) [#/Vol] 1.1 E9/L High 0.2-1.0 [facility] Comment on above: Performed By: #### 2 853130, 51161256, 0957789, 9266178 ####[address] [address] Neutrophils (Bld) [#/Vol] 10.6 E9/L High 2.0-7.5 [facility] Comment on above: Performed By: #### 2 528609, 81847899, 8853008, 3760607 ####[address] [address] Neutrophils/100 WBC (Bld) 75.9 % High 36.0-75.0 [facility] Comment on above: Performed By: #### 2 396941, 82512027, 9166960, 3328291 ####[address] [address] Platelet mean volume (Bld) [Entitic vol] 8.4 fL Normal 6.4-10.8 [facility] Comment on above: Performed By: #### 2 845756, 16064914, 1663567, 5535334 ####[address] [address] Platelets (Bld) [#/Vol] 276.0 E9/L Normal 150.0-500. 0 [facility] Comment on above: Performed By: #### 2 373038, 26619323, 9179356, 8999871 ####[address] [address] RBC (Bld) [#/Vol] 5.2 E12/L Normal 4.3-5.9 [facility] Comment on above: Performed By: #### 2 979648, 97019380, 9520319, 9307614 ####[facility] [address] [place] [address] WBC corrected for nucl RBC Auto (Bld) [#/Vol] 14.0 E9/L High 4.0-11.0 [facility] Comment on above: Performed By: #### 2 969472, 01838597, 7088922, 3350820 ####[facility] [address] [place] [address] CHEMISTRYOrdered By: SYSTEM SYSTEM on 03-15-2024 Albumin [...] 03-15-2024 Chloride [Moles/Vol] 99 mmol/L Low 101-111 [facility] Comment on above: Performed By: #### 2 070780, 36578622, 3698242, 9235641 ####[facility] [address] [place] [address] Potassium [Moles/Vol] 3.3 mmol/L Low 3.5-5.3 [facility] Comment on above: Performed By: #### 2 994375, 17988765, 5370940, 2625573 ####[facility] [address] [place] [address] Sodium [Moles/Vol] 137 mmol/L Normal 135-145 [facility] Comment on above: Performed By: #### 2 064769, 33673158, 4570946, 4516820 ####[facility] [address] [place] [address] Anion gap [Moles/Vol] 22 mmol/L High 6-16 [facility] Comment on above: Performed By: #### 2 058760, 03915528, 1644627, 7351753 ####[facility] [address] [place] [address] CO2 [Moles/Vol] 19 mmol/L Low 21-31 [facility] Comment on above: Performed By: #### 2 722474, 34956289, 9979712, 7797500 ####[address] [address] Albumin [Mass/Vol] 5.0 g/dL Normal 3.3-5.0 [facility] Comment on above: Performed By: #### 2 930961, 44944128, 4735103, 9785626 ####[address] [address] Albumin/Globulin (S) [Mass conc ratio] 1.8 Normal 1.1-2.2 [facility] Comment on above: Performed By: #### 2 999346, 17939614, 0299816, 3691823 ####[address] [address] ALP [Catalytic activity/Vol] 69 Int._Unit/L Normal 21-98 [facility] Comment on above: Performed By: #### 2 674009, 86469447, 4036843, 9061497 ####[address] [address] ALT No additional P-5'-P [Catalytic activity/Vol] 31 Int._Unit/L Normal 6-46 [facility] Comment on above: Performed By: #### 2 651109, 69186649, 5477579, 5382366 ####[address] [address] AST [Catalytic activity/Vol] 19 Int._Unit/L Normal 5-43 [facility] Comment on above: Performed By: #### 2 468028, 13799634, 8465685, 7121034 ####[address] [address] Bilirubin [Mass/Vol] 0.8 mg/dL Normal 0.0-1.1 [facility] Comment on above: Performed By: #### 2 681044, 71117155, 3587468, 2993839 ####[facility] [address] [place] [address] Calcium [Mass/Vol] 10.4 mg/dL Normal 8.9-11.1 [facility] Comment on above: Performed By: #### 2 530854, 89594855, 5639083, 7998906 ####[facility] [address] [place] [address] Creatinine [Mass/Vol] 0.8 mg/dL Normal 0.5-1.3 [facility] Comment on above: Performed By: #### 2 181536, 60557807, 2948020, 3013464 ####[facility] [address] [place] [address] Globulin (S) [Mass/Vol] 2.8 g/dL Normal 1.4-4.0 [facility] Comment on above: Performed By: #### 2 431991, 41892712, 1680330, 8415088 ####[facility] [address] [place] [address] Glucose [Mass/Vol] 86 mg/dL Normal 55-199 [facility] Comment on above: Performed By: #### 2 328784, 05005280, 6166030, 2574684 ####[facility] [address] [place] [address] Protein [Mass/Vol] 7.8 g/dL Normal 6.0-7.8 [facility] Comment on above: Performed By: #### 2 828561, 43546064, 7546680, 6133010 ####[facility] [address] [place] [address] Urea nitrogen [Mass/Vol] 24 mg/dL High 5-21 [facility] Comment on above: Performed By: #### 2 385661, 71752113, 7795382, 9792219 ####[facility] [address] [place] [address] Urea nitrogen/Creatinine [Mass ratio] 30 No Units High 10-20 [facility] Comment on above: Performed By: #### 2 322160, 13425534, 2306279, 3912104 ####[facility] [address] [place] [address] CT Chest w/ Contraston 03-15 CT Chest [...] 300 Contrast amount in ml's: 100 Normal [facility] Consent for Treatmenton 02-26 Consent for Treatment [id number] Normal [facility] Discharge Instructionson Discharge Instructions [id number] Normal [facility] ED Clinical Summaryon 2023 ED Clinical Summary (Inserted Image. Vesta ble to display) [place] [id number] ED Clinical Summary Person Information Name: PILI PARIKH/[facility] Age: 19 Years : 2005 Sex: Female Language: Northern Irish PCP: MODESTA ARCHIBALD Marital Status: Single Visit [...] 03/15/2024 13:49:40 03/15/2024 13:49:40 03/15/2024 13:49:40 ADDRESS: [address] [place] [id number] PHYS DOC NOTES: MEDICAL INFORMATION: Prescriptions Given: Medications to Continue with No Changes Other Medications acetaminophen-hydrocodone ([place] 325 mg-5 mg oral tablet) 1 Tablets [...] symptoms. DIAGNOSIS: 1:Nausea and vomiting; 2:Pneumomediastinum Normal [facility] ED Note-Physicianon 03-15-20 ED Note-Physician [...] and Complexity of Problems Differential Diagnosis: [] [facility] Data External documents reviewed: [] My [...] Return to (more content not included)... Normal [facility] Comment on above: Result Comment: Elec tronically Signed By: August Beck M.D.\.tamika\Date and Time Signed: 03/15/24 16:57 EDT ED [...] added (diluted fruit juice). ? Eat bland, irmx-em-xzmzyz foods in small amounts as you are able. These foods include bananas, applesauce, rice, lean meats, toast, and crackers. ? Avoid fluids that contain a lot of sugar or caffeine, such as energy drinks, sports drinks, and soda. ? Avoid alcohol. ? Avoid spicy or fatty foods. General instructions ? Take fzxh-dst-rnhnhzb and prescription medicines only as told by your health care provider. ? Drink enough fluid to keep your urine pale yellow. ? Wash your hands often using soap and water for at least 20 seconds. If soap and water are not available, use hand legal services manager. ? Make sure that everyone in your [...] and drinking to prevent dehydration. ? Take pyye-bzt-wfrgjtd and prescription medicines only as told by [...] provider. Document Revised: 05/21/2022 Document Reviewed: 05/21/2022 Master Equation Patient Education ? 2022 [employer]. Radiology Pneumomediastinum Pneumomediastinum is the presence of [...] marijuana. Spontane (more content not included)... Normal [facility] ED Patient Summaryon 024 ED Patient Summary (Inserted Image. Vesta ble to display) [address] [address] Patient Discharge Instructions Person Information Name: PILI PARIKH Age: 19 Years Arrival Date: 03/15/2024 10:32:10 Discharge Diagnosis: 1:Nausea and vomiting; 2:Pneumomediastinum Primary Care Physician: MODESTA ARCHIBALD Provider Information Primary Provider: August Beck M.D. Advanced Cord Splicer:None The exam and treatment you received in the Emergency Department were for an urgent problem and are not intended as complete care. It is important that you follow up with a doctor, nurse practitioner, or physician?s technology assistant for ongoing care. If your symptoms [...] opioids can be used to help relieve rjrdslgm-mg-lvxaag pain and are often prescribed following a [...] be strugg (more content not included)... Normal [facility] HEMATOLOGYOrdered By: SYSTEM SYSTEM on [...] 03-15-2024 Magnesium [Mass/Vol] 2.2 mg/dL Normal 1.3-2.4 [facility] Comment on above: Performed By: #### 2 054174, 46779997, 8362187, 1483618 ####[facility] [address] [place] [address] eGFRon 03-15-2024 eGFR 108 mL/min/1.73 m2 Normal >=59 [facility] Comment on above: Order Comment: Order added by Discern Expert. Performed By: #### 2 399603, 20024373, 9692115, 4784081 ####[facility] [address] [place] [address] CT Abdomen/Pelvis w/ Contras ton 03-14-2024 CT [...] 300 Contrast amount in ml's: 130 Normal [facility] CT Chest w/ Contraston 03-14 [...] 300 Contrast amount in ml's: 130 Normal [facility] CT Head or Brain w/o [...] M.D. Transcribed by: KIRA Technologist: RAVEN Normal [facility] CT Spine Cervical w/o Contra [...] M.D. Transcribed by: KIRA Technologist: RAVEN Normal [facility] EMS Documentationon 03-14-20 EMS Documentation Please click on link to see report Normal [facility] Comment on above: Result Comment: [...] mGy = na DAP = na Normal [facility] ABO/Rhon 03-13-2024 ABO/Rh Positive Invalid Interpretation Code [facility] Comment on above: Performed By: #### 2 869518, 78635189, 11484923, 02511376 ####[facility] [address] [place] [address] ABO/Rh History Checkon 03-13 ABO/Rh History Check Patient discharged prior Normal [facility] Comment on above: Performed By: #### 2 281544, 73578521, 48645829, 09816582 ####[facility] [address] [place] [address] ABSCon 03-13-2024 ABSC Gel Interp Negative Normal [facility] Comment on above: Performed By: #### 2 451238, 01164066, 85460328, 80128112 ####[facility] [address] [place] [address] B hCG Qualon 03-13-2024 Beta HCG ( test) Ql Negative Normal [facility] Comment on above: Performed By: #### 2 9019272, 9965691, 9225657, 8786669, 0385298, 34980684, 35499777, 2643330, 9644595 ####[facility] [address] [place] [address] BLOOD BANKOrdered By: Scarlet Lindquist on 03-13-2024 ABO/Rh Interp Positive Invalid Interpretation Code [facility] BB Subsection ABSC Gel Interp Negative (03/13/24 6:53 PM) Normal [facility] BB Subsection BMPon 03-13-2024 Anion gap [Moles/Vol] 16 mmol/L Normal -16 [facility] Comment on above: Performed By: #### 2 0646700, 8655951, 0783916, 3641227, 4808685, 50424392, 67607376, 5901340, 5828486 ####[facility] [address] [place] [address] Calcium [Mass/Vol] 10.8 mg/dL Normal 8.9-11.1 [facility] Comment on above: Performed By: #### 2 8373834, 1798157, 2193207, 3098595, 5387155, 55741949, 82921028, 5801393, 2184749 ####[facility] [address] [place] [address] Chloride [Moles/Vol] 105 mmol/L Normal 101-111 [facility] Comment on above: Performed By: #### 2 9989872, 0266105, 6415917, 9877676, 4349175, 81138938, 53604410, 2026591, 8554055 ####[facility] [address] [place] [address] CO2 [Moles/Vol] 25 mmol/L Normal 21-31 [facility] Comment on above: Performed By: #### 2 7789969, 6510365, 1547705, 3834164, 9905567, 27403007, 25564475, 7623646, 9076274 ####[facility] [address] [place] [address] Creatinine [Mass/Vol] 0.9 mg/dL Normal 0.5-1.3 [facility] Comment on above: Performed By: #### 2 7331599, 5058273, 1632868, 4377751, 0562791, 75625706, 79830387, 1414616, 3439042 ####[facility] [address] [place] [address] Glucose [Mass/Vol] 100 mg/dL Normal 55-199 [facility] Comment on above: Performed By: #### 2 9734026, 7666230, 8155061, 0329040, 7903925, 66790440, 59625209, 3386148, 0348684 ####[facility] [address] [place] [address] Potassium [Moles/Vol] 3.3 mmol/L Low 3.5-5.3 [facility] Comment on above: Performed By: #### 2 4326348, 2408227, 2976094, 9323939, 0911947, 60196546, 36427066, 0626297, 8591797 ####[facility] [address] [place] [address] Sodium [Moles/Vol] 143 mmol/L Normal 135-145 [facility] Comment on above: Performed By: #### 2 6794508, 3335103, 0921224, 7668110, 0192600, 17352107, 52459702, 9207381, 8161167 ####[facility] [address] [place] [address] Urea nitrogen [Mass/Vol] 24 mg/dL High 5-21 [facility] Comment on above: Performed By: #### 2 5218886, 7289713, 0390588, 1938135, 6525306, 19358335, 72611023, 9716009, 1585984 ####[facility] [address] [place] [address] Urea nitrogen/Creatinine [Mass ratio] 27 No Units High 10-20 [facility] Comment on above: Performed By: #### 2 1641411, 3341620, 6600903, 7081249, 3952462, 53711920, 46912760, 8631724, 6012142 ####[address] [place] [address] Blood Bank ID#on 03-13-2024 BBID# [id number] Invalid Interpretation Code [facility] Comment on above: Performed By: #### 2 294385, 91122140, 55618749, 82152830 ####[address] [place] [address] CBC w/ Auto Diffon 4 Basophils/100 WBC (Bld) 0.4 % Normal 0.0-2.0 [facility] Comment on above: Performed By: #### 2 0033031, 1733955, 2178167, 6683297, 1255687, 43420838, 91537261, 0297565, 9722295 ####[address] [address] Basophils/Leukocytes Auto (Bld) [Pure # fraction] 0.1 E9/L Normal 0.0-0.2 [facility] Comment on above: Performed By: #### 2 0601377, 2510913, 7267761, 0296719, 1477191, 33444759, 30117060, 7545924, 3360220 ####[address] [address] Eosinophils (Bld) [#/Vol] 0.0 E9/L Normal 0.0-0.5 [facility] Comment on above: Performed By: #### 2 8279907, 3494365, 0471635, 0604513, 7473127, 46974539, 68891329, 9885791, 4139577 ####[address] [address] Eosinophils/100 WBC (Bld) 0.1 % Normal 0.0-8.0 [facility] Comment on above: Performed By: #### 2 9807171, 2578631, 7372688, 3896465, 2481015, 41677451, 11786836, 3124177, 0139629 ####[address] [address] Erythrocyte distribution width (RBC) [Ratio] 14.4 % High 10.9-14.2 [facility] Comment on above: Performed By: #### 2 8255646, 2171116, 6780121, 6271295, 2099419, 90932813, 66672182, 5228074, 2486307 ####[address] [address] Hematocrit (Bld) [Volume fraction] 42.5 % Normal 34.0-46.0 [facility] Comment on above: Performed By: #### 2 7684929, 2642140, 5593349, 0821985, 8934230, 77426477, 37377637, 0281127, 7647875 ####[address] [address] Hemoglobin (Bld) [Mass/Vol] 14.0 g/dL Normal 12.0-16.0 [facility] Comment on above: Performed By: #### 2 4216704, 0946369, 4818366, 9773178, 3136742, 99977612, 35741236, 4966795, 5068333 ####[address] [address] Lymphocytes (Bld) [#/Vol] 2.3 E9/L Normal 1.0-4.0 [facility] Comment on above: Performed By: #### 2 5637039, 4353149, 1227379, 7399106, 2827571, 16578911, 37939159, 3370640, 4282747 ####[address] [address] Lymphocytes/100 WBC (Bld) 11.8 % Low 14.0-50.0 [facility] Comment on above: Performed By: #### 2 4842110, 4135837, 5051061, 0095989, 8692669, 14195692, 58033884, 3094051, 1910365 ####[address] [place] [address] MCH (RBC) [Entitic mass] 27.6 pg Normal 27.0-34.0 [facility] Comment on above: Performed By: #### 2 6137653, 7541980, 2598118, 5094535, 9222404, 94092829, 81970710, 7557273, 3326967 ####[address] [address] MCHC (RBC) [Mass/Vol] 32.9 g/dL Normal 31.4-36.0 [facility] Comment on above: Performed By: #### 2 4242700, 1909628, 5382291, 9856579, 1028955, 08366742, 92961661, 5588510, 2297549 ####[address] [address] MCV (RBC) [Entitic vol] 83.8 fL Normal 80.0-100.0 [facility] Comment on above: Performed By: #### 2 5381142, 2937606, 6799522, 3471545, 0984282, 08128610, 41497208, 8819447, 4548933 ####[place] [address] Monocytes (Bld) [#/Vol] 1.4 E9/L High 0.2-1.0 [facility] Comment on above: Performed By: #### 2 9793546, 4004037, 5131458, 4617852, 6324854, 58802488, 43094512, 8465662, 2690111 ####[address] [address] Neutrophils (Bld) [#/Vol] 15.5 E9/L High 2.0-7.5 [facility] Comment on above: Performed By: #### 2 5252382, 5999118, 7750500, 4681833, 1879278, 75357359, 54804257, 3165792, 6000090 ####[address] [place] [address] Neutrophils/100 WBC (Bld) 80.6 % High 36.0-75.0 [facility] Comment on above: Performed By: #### 2 1206376, 4142430, 0758852, 4389649, 6302387, 08105082, 85234533, 5204586, 2029224 ####[address] [address] Platelet mean volume (Bld) [Entitic vol] 8.4 fL Normal 6.4-10.8 [facility] Comment on above: Performed By: #### 2 7953817, 6164068, 1294134, 1898590, 2351921, 16522622, 58205980, 3405960, 7675230 ####[address] [address] Platelets (Bld) [#/Vol] 356.0 E9/L Normal 150.0-500. 0 [facility] Comment on above: Performed By: #### 2 5971214, 1960042, 6677432, 4717108, 4508662, 55217796, 69200008, 7111345, 4681582 ####[address] [address] RBC (Bld) [#/Vol] 5.1 E12/L Normal 4.3-5.9 [facility] Comment on above: Performed By: #### 2 7725839, 9489860, 3438703, 9867672, 4370051, 48537443, 83358437, 8625412, 0555610 ####[address] [address] WBC corrected for nucl RBC Auto (Bld) [#/Vol] 19.3 E9/L High 4.0-11.0 [facility] Comment on above: Result Comment: Slid e review performed Performed By: #### 2 2162470, 8094975, 9706738, 2574041, 5016283, 97130709, 35434485, 9718797, 7338372 ####[facility] [address] [place] [address] CHEMISTRYOrdered By: SYSTEM SYSTEM on 03-13-2024 Albumin [...] Sensitivity Troponin I Instructions For Use, Sugar [place], June 2018) Urea nitrogen [Mass/Vol] 24 mg/dL High 5 - 21 mg/dL [facility] Urea nitrogen/Creatinine [Mass ratio] 27 mg/mg High 10 - 20 [facility] COAGULATIONOrdered By: Jefe Mccain on 03-13-2024 aPTT Coag (PPP) [Time] 32.8 s Normal 25.1 - 36.5 second(s) [facility] Auto Coag Comment on above: Interpretive Data: [...] the same coagulation reagent and instrumentation as [facility]. Currently there are no coagulation studies available worldwide for children to 14 days, and no normal ranges. Heparin therapeutic range (represented by Anti-Factor Xa activity of 0.2 - 0.4 U/mL) corresponds to PTT of 56.6 - 109.0 sec. INR Coag (PPP) [Relative time] 1.11 {INR} Invalid Interpretation Code [facility] Auto Coag Comment on above: Interpretive Data: I NR results are specifically intended to assess patients stabilized on long-term Anticoagulation therapy suggested INR s Less Intensive Anticoagulation 2.0 3.0 Conventional Range 3.0 4.5 PT Coag (PPP) [Time] 12.4 s Normal 9.4 - 1 2.5 second(s) [facility] Auto Coag Comment on above: Interpretive Data: [...] the same coagulation reagent and instrumentation as [facility]. Currently there are no coagulation studies available worldwide for children to 14 days, and no normal ranges. Consent for Treatmenton 02-26 Consent for Treatment [id number]#1.00TIFF Normal [facility] Discharge Instructionson Discharge Instructions [id number]#[id number] Normal [facility] ED Clinical Summaryon 2023 ED Clinical Summary (Inserted Image. Vesta ble to display) [address] [address] ED Clinical Summary Person Information Name: [facility] Age[facility] 19 Years : 2005 Sex: Female Language: Northern Irish PCP: MODESTA ARCHIBALD Marital Status: Single Visit [...] 03/13/2024 22:27:59 03/13/2024 22:27:59 ADDRESS: [address] [facility] [id number] PHYS DOC NOTES: MEDICAL INFORMATION: Prescriptions Given: New Medications [id number], [address], [place] [id number], [phone] acetaminophen-hydrocodone ([place] 325 mg-5 mg oral tablet) 1 Tablets [...] EDUCATION INFORMATION: Instructions: Nausea and Vomiting, Adult, Xhoj-uz-Gkmj; Muscle Strain, Tihf-jt-Bzvn Follow up: With: Address: When: MODESTA ARCHIBALD [address] [place], [place] [phone] Business (1) In 3 days 03/16/2024 Comments: [...] Back strain; N&V (nausea and vomiting) Normal [facility] ED Note-Physicianon 03-13-20 ED Note-Physician Basic [...] EDT, STA (more content not included)... Normal [facility] Comment on above: Result Comment: Elec tronically Signed By: Gasper Lang PA-C\.br\Date and Time Signed: 03/13/24 18:45 EDT\.br\Electronically Co-Signed By: Isaak Francis DO\.br\Date and Time Co-Signed: 03/13/24 22:19 EDT\.br\Electronically Co-Signed By: Jacinto Roman DO\.tamika\Date and Time Co-Signed: 03/16/24 07:37 EDT ED [...] ? Low-calorie sports drinks. ? Eat bland, nvnk-ue-sfrqrz foods in small amounts as you are able, such as: ? Bananas. ? Applesauce. ? Rice. ? Low-fat (lean) meats. ? [place]. ? Crackers. ? Avoid drinking fluids that have a lot of sugar or caffeine in them. This includes energy drinks, sports drinks, and soda. ? Avoid alcohol. ? Avoid spicy or fatty foods. General instructions ? Take ldnn-blt-qmqiazc and prescription medicines only as told by your doctor. ? Drink enough fluid to keep your pee (urine) pale yellow. ? Wash your hands often with soap and water for at least 20 seconds. If you cannot use soap and water, use hand legal services manager. ? Make sure that everyone in your [...] doctor about eating and drinking. ? Take lpux-wuh-gzftfxn and prescription medicines only as told by [...] Reviewed: 05/21/2022 Elsevier Patient Education ? 2022 [employer] Orthopedics Muscle Strain A muscle strain, [...] your m (more content not included)... Normal [facility] ED Patient Summaryon 024 ED Patient Summary (Inserted Image. Vesta ble to display) [place] [address] Patient Discharge Instructions Person Information Name: PILI PARIKH Age: 19 Years Arrival Date: 03/13/2024 17:33:02 Discharge Diagnosis: 1:Fall down stairs; Abnormal CT scan, chest; Back strain; N&V (nausea and vomiting) Primary Care Physician: MODESTA ARCHIBALD Provider Information Primary Provider: Jacinto Roman DO Advanced Cord Splicer:Gasper Lang PA-C The exam and treatment you received in the Emergency Department were for an urgent problem and are not intended as complete care. It is important that you follow up with a doctor, nurse practitioner, or physician?s technology assistant for ongoing care. If your symptoms become worse or you do not improve as expected and you are unable to reach your usual health care provider, you should return to the Emergency Department. We are available 24 hours a day. PILI PARIKH has been given the following list of patient education materials, prescriptions and follow-up instructions: Follow-up Instructions: With: Address: When: MO[address]STA [address] [place], [place] [phone] Business (1) In 3 days 03/16/2024 Comments: [...] Patient Education Materials: Nausea and Vomiting, Adult, Doeq-iz-Iccg; Muscle Strain, Ixyz-jw-Fjqf A MESSAGE TO ALL PATIENTS REGARDING OPIOIDS PRESCRIPTION OPIOIDS: WHAT YOU NEED TO KNOW Prescription opioids can be used to help relieve isookymp-jh-kunsda pain and are often prescribed following a [...] your pharmacy mail-back program, or flush them juna (more content not included)... Normal [facility] ED Traumaon 03-13-2024 ED Trauma [id number]#1.00TIFF Normal [facility] Ethanolon 03-13-2024 Ethanol Lvl <10 Normal <=11 [facility] Comment on above: Performed By: #### 2 765320 ####[facility] [address] [place] [address] HEMATOLOGYOrdered By: SYSTEM SYSTEM on 03-13-2024 Basophils/100 [...] Rem[facility] Heme Comment on above: Result Comment: Jamla cole review performed Hep Func Panelon 03-13-2024 Albumin [Mass/Vol] 5.4 g/dL High 3.3-5.0 [facility] Comment on above: Performed By: #### 2 4822430, 9365940, 2694032, 9152839, 6219738, 17680078, 17010992, 1004015, 2701666 ####[address] [address] Albumin/Globulin (S) [Mass conc ratio] 1.8 Normal 1.1-2.2 [facility] Comment on above: Performed By: #### 2 6656543, 1316376, 6231081, 5326904, 2088119, 05402867, 76062916, 6464482, 5622603 ####[address] [address] ALP [Catalytic activity/Vol] 82 Int._Unit/L Normal 21-98 [facility] Comment on above: Performed By: #### 2 5001525, 3779220, 3215944, 9673175, 7206510, 27870230, 96097871, 4951138, 0924414 ####[address] [address] ALT No additional P-5'-P [Catalytic activity/Vol] 44 Int._Unit/L Normal 6-46 [facility] Comment on above: Performed By: #### 2 6779885, 6233030, 5289256, 1831100, 9794654, 04403015, 82708450, 4920541, 2170436 ####[address] [address] AST [Catalytic activity/Vol] 23 Int._Unit/L Normal 5-43 [facility] Comment on above: Performed By: #### 2 5055267, 8878756, 3951935, 2137487, 8866859, 52000018, 70840607, 4043918, 0995683 ####[address] [address] Bilirubin [Mass/Vol] 0.8 mg/dL Normal 0.0-1.1 [facility] Comment on above: Performed By: #### 2 6301171, 9955262, 9646308, 1202032, 4088281, 38656506, 45773427, 0425687, 6585749 ####[facility] [address] [place] [address] Bilirubin.direct [Mass/Vol] 0.2 mg/dL Normal 0.0-0.4 [facility] Comment on above: Performed By: #### 2 7939862, 9010270, 4728019, 6028649, 0406193, 95400081, 49602045, 2391682, 7435265 ####[facility] [address] [place] [address] Bilirubin.indirect [Mass or moles/Vol] 0.6 mg/dL Normal 0.1-0.9 [facility] Comment on above: Performed By: #### 2 8751722, 4118446, 2419535, 0749363, 7721810, 15821110, 42523284, 8725482, 2305479 ####[address] [address] Globulin (S) [Mass/Vol] 3.0 g/dL Normal 1.4-4.0 [facility] Comment on above: Performed By: #### 2 8288238, 7824037, 3536309, 1203999, 3960497, 77328729, 79949241, 7492738, 4381452 ####[address] [place] [address] Protein [Mass/Vol] 8.4 g/dL High 6.0-7.8 [facility] Comment on above: Performed By: #### 2 9666279, 0019284, 9781612, 0750392, 0098163, 80973416, 89511383, 6791853, 8022674 ####[address] [place] [address] Lactic Acidon 03-13-2024 Lactic Acid Lvl 1.7 mmol/L Normal 0.5-2.2 [facility] Comment on above: Performed By: #### 2 2075833, 3330797, 7295708, 9308256, 7731021, 60947531, 48167894, 7856949, 7772967 ####[facility] [address] [place] [address] Lipase Levelon 03-13-2024 Lipase [Catalytic activity/Vol] 14 U/L Normal 13-58 [facility] Comment on above: Performed By: #### 2 5236900, 7546020, 3924394, 9459458, 9520223, 22699534, 33649259, 1112746, 1690309 ####[facility] [address] [place] [address] Monitor Recordon 03-13-2024 Monitor Record [id number]#1.00TIFF Normal [facility] Monitor Record [id number]#1.00TIFF Normal [facility] PT & PTTon 03-13-2024 aPTT Coag (PPP) [Time] 32.8 second(s) Normal 25.1-36.5 [facility] Comment on above: Result Comment: [...] the same coagulation reagent and instrumentation as [facility]. Currently there are no coagulation studies available worldwide for children to 14 days, and no normal ranges. Heparin therapeutic range (represented by Anti-Factor Xa activity of 0.2 - 0.4 U/mL) corresponds to PTT of 56.6 - 109.0 sec. Performed By: #### 2 6790848, 5153671, 1255068, 8552415, 2311007, 21989303, 32098278, 6679254, 7683284 ####[facility] [address] [place] [address] INR Coag (PPP) [Relative time] 1.11 {INR} Invalid Interpretation Code [facility] Comment on above: Result Comment: INR results are specifically intended to assess patients stabilized on long-term Anticoagulation therapy suggested INR?s ?Less Intensive Anticoagulation? 2.0 ? 3.0 Conventional Range 3.0 ? 4.5 Performed By: #### 2 2731808, 5905639, 9704410, 0664361, 6228590, 56278135, 25893257, 9405758, 4667291 ####[facility] [address] [place] [address] PT Coag (PPP) [Time] 12.4 second(s) Normal 9.4-12.5 [facility] Comment on above: Result Comment: [...] the same coagulation reagent and instrumentation as [facility]. Currently there are no coagulation studies available worldwide for children to 14 days, and no normal ranges. Performed By: #### 2 4124125, 1464238, 4618803, 0493102, 8944198, 35651210, 45575858, 7496857, 0770266 ####[facility] [address] [place] [address] Pre-Arrival Noteon Pre-Arrival Note Pre-Arrival Summary Name: , [facility] Current Date: 03/13/2024 17:34:24 EDT Gender: Female Date of : Age: 19 Pre-Arrival Type: EMS ETA: 03/13/2024 17:59:00 EDT Primary Care Physician: Presenting Problem: fall down 10 stairs Pre-Arrival User: Payal Robison RN Referring Source: Location: Completion Date/Time: 03/13/2024 17:29:00 [facility] Emergency Department Pre-Hospital Report Form Vital Signs: 127/83; 66; 17; 96%; GCS 15 Pre-Hospital Report: Treatment in Route: C-COLLAR Response to Treatment: Misc. Issues: Normal [facility] Prescriptions/Work Noteson 0 03-13-2024 Prescriptions/Work Notes [id number]#1.00TIFF Normal [facility] RAD - Preliminary Cat Scan R eporton 03-13-2024 RAD - Preliminary Cat Scan Report [id number]#1.00TIFF Normal [facility] SEROLOGYOrdered By: Virginia Mccain on 03-13-2024 Beta HCG ( test) Ql Negative (03/13/24 6:53 PM) Normal [facility] Man Sero Troponinon 03-13-2024 Troponin 6.10 pg/mL Low 10.10-27.1 0 [facility] Comment on above: Result Comment: The 95% CI (Confidence Interval) PPV (Positive Predictive Value) for myocardial infarction in females is 38 pg/mL, in males 51 pg/mL. The results should be used in conjunction with clinical conditions of myocardial infarction. (Access High Sensitivity Troponin I Instructions For Use, Sugar [place], June 2018) Performed By: #### 2 5175627, 7103345, 7576407, 3946504, 4478783, 97674376, 67188511, 7503879, 2941071 ####[facility] [address] [place] [address] eGFRon 03-13-2024 eGFR 94 mL/min/1.73 m2 Normal >=59 [facility] Comment on above: Order Comment: qns t o run. phlebotomists notified of recollect by message. [email or web address] 03/13/2024 18:28:21 EDTOrder added by Discern Expert. Performed By: #### 2 8697325, 0238139, 7266947, 1196281, 3735478, 79083836, 38937209, 0411264, 7156245 ####[facility] [address] [place] [address] Amphetamine Screen Ql (U)Ord ered By: Familia Christian on 05-25-2023 Amphetamines Ql (U) Negative Negative [facility] Barbiturates [Presence] in U rine by Screen methodOrdered By: Familia Christian on 05-25-2023 Barbiturates Screen Ql (U) Negative Negative [facility] Benzodiazepines Screen Ql (U )Ordered By: Familia Christian on 05-25-2023 Benzodiazepines Ql (U) Negative Negative [facility] Benzoylecgonine [Presence] i n Urine by Screen methodOrdered By: Familia Christian on 05-25-2023 Benzoylecgonine Screen Ql (U) Negative Negative [facility] Cannabinoids [Presence] in U rine by Screen methodOrdered By: Familia Christian on 05-25-2023 Cannabinoids Screen Ql (U) Positive Negative [facility] Comment on above: These are unconfirme d results and should not be used for legal purposes. Drug Cut-Off Concentration: AMPH 1000 ng/mL NIKOLAS 200 ng/mL SHRAVAN 200 ng/mL COCM 300 ng/mL OP 300 ng/mL PCP 25 ng/mL THC 20 ng/mL HCG ( test) IA.rapi d Ql (U)Ordered By: Familia Christian on 05-25-2023 HCG ( test) Ql (U) Negative [facility] Opiates [Presence] in Urine by Screen methodOrdered By: Familia Christian on 05-25-2023 Opiates Screen Ql (U) Negative Negative [facility] Phencyclidine Screen Ql (U)O rdered By: Familia Christian on 05-25-2023 Phencyclidine Ql (U) Negative Negative [facility] COVID-19 Detected/Not Detect edOrdered By: Modesta Chand on 03-15-2023 SARS-CoV-2 (COVID-19) RNA JANAK+non-probe Ql (Nph) Not detected Not Detecte [facility] Comment on above: This is a duplicate RP2.1 COVID (PCR) result to be used for statistical tracking purpose only. Respiratory pathogens DNA an d RNA panel - Nasopharynx by JANAK with non-probe detectionOrdered By: Modesta Chand on 03-15-2023 Respiratory pathogens DNA and RNA panel JANAK+non-probe (Nph) [facility] Basophils Auto (Bld) [#/Vol] Ordered By: Anette Stuot on 01-07-2023 Basophils (Bld) [#/Vol] 0.0 10*3/uL 0.0-0.1 [facility] Basophils/100 WBC Auto (Bld) Ordered By: Anette Stout on 01-07-2023 Basophils/100 WBC (Bld) 0.4 % . [facility] Eosinophils Auto (Bld) [#/Vo l]Ordered By: Anette Stout on 01-07-2023 Eosinophils (Bld) [#/Vol] 0.7 10*3/uL 0.0-0.7 [facility] Eosinophils/100 WBC Auto (Bl d)Ordered By: Anette Stout on 01-07-2023 Eosinophils/100 WBC (Bld) 5.5 % . [facility] Erythrocyte distribution wid th Auto (RBC) [Ratio]Ordered By: Anette Stout on 01-07-2023 Erythrocyte distribution width (RBC) [Ratio] 13.5 % 11.9-15.3 [facility] Estimated glomerular filtrat ion rate (GFR) non- AmericanOrdered By: Anette Stout on 01-07-2023 GFR/1.73 sq M.predicted among non-blacks MDRD (S/P/Bld) [Vol rate/Area] > 60 mL/Min [facility] Hematocrit Auto (Bld) [Volum e fraction]Ordered By: Anette Stout on 01-07-2023 Hematocrit (Bld) [Volume fraction] 41.5 % 36.0-46.0 [facility] Hemoglobin [Mass/volume] in BloodOrdered By: Anette Stout on 01-07-2023 Hemoglobin (Bld) [Mass/Vol] 14.0 g/dL 12.0-16.0 [facility] Leukocytes [#/volume] correc venkata for nucleated erythrocytes in Blood by Automated counOrdered By: Anette Stout on 01-07-2023 WBC corrected for nucl RBC Auto (Bld) [#/Vol] 12.1 10*3/uL 4.5-13.5 [facility] Lymphocytes Auto (Bld) [#/Vo l]Ordered By: Anette Stout on 01-07-2023 Lymphocytes (Bld) [#/Vol] 2.5 10*3/uL 1.20-4.8 [facility] Lymphocytes/100 WBC Auto (Bl d)Ordered By: Anette Stout on 01-07-2023 Lymphocytes/100 WBC (Bld) 20.9 % . [facility] MCH Auto (RBC) [Entitic mass ]Ordered By: Anette Stout on 01-07-2023 MCH (RBC) [Entitic mass] 28.8 pg 25.0-35.0 [facility] MCHC Auto (RBC) [Mass/Vol]Or dered By: Anette Stout on 01-07-2023 MCHC (RBC) [Mass/Vol] 33.7 g/dL 31.0-37.0 [facility] MCV Auto (RBC) [Entitic vol] Ordered By: Anette Stout on 01-07-2023 MCV (RBC) [Entitic vol] 85.5 fL 78-102 [facility] Monocytes Auto (Bld) [#/Vol] Ordered By: Anette Stout on 01-07-2023 Monocytes (Bld) [#/Vol] 0.9 10*3/uL 0.1-1.00 [facility] Monocytes/100 WBC Auto (Bld) Ordered By: Anette Stout on 01-07-2023 Monocytes/100 WBC (Bld) 7.5 % . [facility] Neutrophils Auto (Bld) [#/Vo l]Ordered By: Anette Stout on 01-07-2023 Neutrophils (Bld) [#/Vol] 8.0 10*3/uL 1.2-7.7 [facility] Neutrophils/100 WBC Auto (Bl d)Ordered By: Anette Stout on 01-07-2023 Neutrophils/100 WBC (Bld) 65.7 % . [facility] No Panel InformationOrdered By: Anette Stout on 01-07-2023 > 60 mL/Min [facility] 113.92 [facility] Nucleated erythrocytes [Pres ence] in Blood by Automated countOrdered By: Anette Stout on 01-07-2023 Nucleated RBC Auto Ql (Bld) 0.1 /100{WBC} 0-0.5 [facility] Platelet mean volume Auto (B ld) [Entitic vol]Ordered By: Anette Stout on 01-07-2023 Platelet mean volume (Bld) [Entitic vol] 8.6 fL 6.3-10.7 [facility] Platelets Auto (Bld) [#/Vol] Ordered By: Anette Stout on 01-07-2023 Platelets (Bld) [#/Vol] 222 10*3/uL 150-450 [facility] RBC Auto (Bld) [#/Vol]Ordere d By: Anette Stout on 01-07-2023 RBC (Bld) [#/Vol] 4.85 10*6/uL 4.10-5.10 [facility] Serum or plasma anion gap de terminationOrdered By: Anette Stout on 01-07-2023 Anion gap [Moles/Vol] N/A [facility] Serum or plasma calcium tammy urement (mass/volume)Ordered By: Anette Stout on 01-07-2023 Calcium [Mass/Vol] 8.5 mg/dL 8.2-10.2 [facility] Serum or plasma chloride judy surement (moles/volume)Ordered By: Anette Stout on 01-07-2023 Chloride [Moles/Vol] 103 mmol/L 95-114 [facility] Serum or plasma creatinine m easurement with calculation of estimated glomerular filtrOrdered By: Anette Stout on 01-07-2023 Creatinine and Glomerular filtration rate.predicted panel (S/P/Bld) 0.77 mg/dL 0.44-1.03 [facility] Serum or plasma glucose tammy urement (mass/volume)Ordered By: Anette Stout on 01-07-2023 Glucose [Mass/Vol] 90 mg/dL 70-100 [facility] Serum or plasma potassium me asurement (moles/volume)Ordered By: Eliana Bautista on 01-07-2023 Potassium [Moles/Vol] 3.2 mmol/L 3.5-5.1 [facility] Serum or plasma sodium measu rement (moles/volume)Ordered By: Anette Stotu on 01-07-2023 Sodium [Moles/Vol] 134 mmol/L 136-146 [facility] Serum or plasma total carbon dioxide measurement (moles/volume)Ordered By: Anette Stout on 01-07-2023 CO2 [Moles/Vol] 23.4 mmol/L 22.0-30.0 [facility] Serum or plasma urea nitroge n measurement (mass/volume)Ordered By: Anette Stout on 01-07-2023 Urea nitrogen [Mass/Vol] 8 mg/dL 9-23 [facility] WBC Auto (Bld) [#/Vol]Ordere d By: Anette Stout on 01-07-2023 WBC (Bld) [#/Vol] 12.1 10*3/uL 4.5-13.5 [facility] Amphetamine Screen Ql (U)Ord ered By: Anette Stout on 01-06-2023 Amphetamines Ql (U) Negative Negative [facility] Automated erythrocytes count in urine sediment (number/area)Ordered By: Rd Brown on 01-06-2023 RBC Auto (Urine sed) [#/Area] None seen [HPF] 0-4 [facility] Automated leukocytes count i n urine sediment (number/area)Ordered By: Rd Brown on 01-06-2023 WBC Auto (Urine sed) [#/Area] 20-49 [HPF] 0-4 [facility] Automated urine hyaline cast s count (number/volume)Ordered By: Rd Brown on 01-06-2023 Hyaline casts Auto (U) [#/Vol] None seen [LPF] 0-1 [facility] Barbiturates [Presence] in U rineOrdered By: Anette Stout on 01-06-2023 Barbiturates Ql (U) Negative Negative [facility] Basophils Auto (Bld) [#/Vol] Ordered By: Rd Brown on 01-06-2023 Basophils (Bld) [#/Vol] 0.0 10*3/uL 0.0-0.1 [facility] Basophils/100 WBC Auto (Bld) Ordered By: Rd Brown on 01-06-2023 Basophils/100 WBC (Bld) 0.3 % . [facility] Benzodiazepines [Presence] i n UrineOrdered By: Anette Stout on 01-06-2023 Benzodiazepines Ql (U) Negative Negative [facility] Bilirubin Test strip Ql (U)O rdered By: Rd Brown on 01-06-2023 Bilirubin Ql (U) Negative Negative [facility] Body fluid albumin measureme nt (mass/volume)Ordered By: Rd Brown on 01-06-2023 Albumin (Body fld) [Mass/Vol] 4.9 g/dL 3.2-5.5 [facility] Cannabinoids [Presence] in U rine by Screen methodOrdered By: Anette Stout on 01-06-2023 Cannabinoids Screen Ql (U) Positive Negative [facility] Casts typing in urine sedime nt by light microscopyOrdered By: Rd Brown on 01-06-2023 Casts LM Nom (Urine sed) None seen [LPF] None Seen [facility] Color Auto (U)Ordered By: Andrew Brown on 01-06-2023 Color (U) Yellow Yellow [facility] Eosinophils Auto (Bld) [#/Vo l]Ordered By: Rd Brown on 01-06-2023 Eosinophils (Bld) [#/Vol] 0.4 10*3/uL 0.0-0.7 [facility] Eosinophils/100 WBC Auto (Bl d)Ordered By: Rd Brown on 01-06-2023 Eosinophils/100 WBC (Bld) 2.3 % . [facility] Erythrocyte distribution wid th Auto (RBC) [Ratio]Ordered By: Rd Brown on 01-06-2023 Erythrocyte distribution width (RBC) [Ratio] 13.5 % 11.9-15.3 [facility] Estimated glomerular filtrat ion rate (GFR) non- AmericanOrdered By: Rd Brown on 01-06-2023 GFR/1.73 sq M.predicted among non-blacks MDRD (S/P/Bld) [Vol rate/Area] > 60 mL/Min [facility] Globulin Calc (S) [Mass/Vol] Ordered By: Rd Brown on 01-06-2023 Globulin (S) [Mass/Vol] 2.9 g/dL [facility] HCG ( test) IA.rapi d Ql (U)Ordered By: Rd Brown on 01-06-2023 HCG ( test) Ql (U) Negative [facility] Hematocrit Auto (Bld) [Volum e fraction]Ordered By: Rd Brown on 01-06-2023 Hematocrit (Bld) [Volume fraction] 48.3 % 36.0-46.0 [facility] Hemoglobin [Mass/volume] in BloodOrdered By: Rd Brown on 01-06-2023 Hemoglobin (Bld) [Mass/Vol] 16.2 g/dL 12.0-16.0 [facility] Ketones Auto test strip (U) [Mass/Vol]Ordered By: Rd Brown on 01-06-2023 Ketones (U) [Mass/Vol] 4+ Negative [facility] Leukocytes [#/volume] correc venkata for nucleated erythrocytes in Blood by Automated counOrdered By: Rd Brown on 01-06-2023 WBC corrected for nucl RBC Auto (Bld) [#/Vol] 17.7 10*3/uL 4.5-13.5 [facility] Lymphocytes Auto (Bld) [#/Vo l]Ordered By: Rd Brown on 01-06-2023 Lymphocytes (Bld) [#/Vol] 3.5 10*3/uL 1.20-4.8 [facility] Lymphocytes/100 WBC Auto (Bl d)Ordered By: Rd Brown on 01-06-2023 Lymphocytes/100 WBC (Bld) 19.9 % . [facility] MCH Auto (RBC) [Entitic mass ]Ordered By: Rd Brown on 01-06-2023 MCH (RBC) [Entitic mass] 28.7 pg 25.0-35.0 [facility] MCHC Auto (RBC) [Mass/Vol]Or dered By: Rd Brown on 01-06-2023 MCHC (RBC) [Mass/Vol] 33.6 g/dL 31.0-37.0 [facility] MCV Auto (RBC) [Entitic vol] Ordered By: Rd Brown on 01-06-2023 MCV (RBC) [Entitic vol] 85.4 fL 78-102 [facility] Monocyte distribution width [Entitic volume] in Blood by AutomatedOrdered By: Rd Brown on 01-06-2023 Monocyte distribution width Auto (Bld) [Entitic vol] 15.43 % 0.00-20.00 [facility] Monocytes Auto (Bld) [#/Vol] Ordered By: Rd Brown on 01-06-2023 Monocytes (Bld) [#/Vol] 1.3 10*3/uL 0.1-1.00 [facility] Monocytes/100 WBC Auto (Bld) Ordered By: Rd Brown on 01-06-2023 Monocytes/100 WBC (Bld) 7.4 % . [facility] Neutrophils Auto (Bld) [#/Vo l]Ordered By: dR Brown on 01-06-2023 Neutrophils (Bld) [#/Vol] 12.4 10*3/uL 1.2-7.7 [facility] Neutrophils/100 WBC Auto (Bl d)Ordered By: Rd Brown on 01-06-2023 Neutrophils/100 WBC (Bld) 70.1 % . [facility] Nitrite Test strip Ql (U)Ord ered By: Rd Brown on 01-06-2023 Nitrite Ql (U) Negative Negative [facility] No Panel InformationOrdered By: Anette Stout on 01-06-2023 Negative Negative [facility] No Panel InformationOrdered By: Rd Brown on 01-06-2023 > 60 mL/Min [facility] 31.0 U/L 22-51 [facility] 102.00 [facility] Nucleated erythrocytes [Pres ence] in Blood by Automated countOrdered By: Rd Brown on 01-06-2023 Nucleated RBC Auto Ql (Bld) 0.1 /100{WBC} 0-0.5 [facility] Phencyclidine Screen Ql (U)O rdered By: Anette Stout on 01-06-2023 Phencyclidine Ql (U) Negative Negative [facility] Platelet mean volume Auto (B ld) [Entitic vol]Ordered By: Rd Brown on 01-06-2023 Platelet mean volume (Bld) [Entitic vol] 8.5 fL 6.3-10.7 [facility] Platelets Auto (Bld) [#/Vol] Ordered By: Rd Brown on 01-06-2023 Platelets (Bld) [#/Vol] 296 10*3/uL 150-450 [facility] Protein Auto test strip (U) [Mass/Vol]Ordered By: Rd Brown on 01-06-2023 Protein (U) [Mass/Vol] 100 mg/dL Negative [facility] Protein [Mass/volume] in Ser um or PlasmaOrdered By: Rd Brown on 01-06-2023 Protein [Mass/Vol] 7.8 g/dL 6.1-7.9 [facility] RBC Auto (Bld) [#/Vol]Ordere d By: Rd Brown on 01-06-2023 RBC (Bld) [#/Vol] 5.65 10*6/uL 4.10-5.10 [facility] Serum or plasma alanine florez otransferase measurement without P-5'-P (enzymatic activiOrdered By: Rd Brown on 01-06-2023 ALT No additional P-5'-P [Catalytic activity/Vol] 20 U/L 10-60 [facility] Serum or plasma albumin/glob ulin mass ratioOrdered By: Rd Brown on 01-06-2023 Albumin/Globulin [Mass ratio] 1.7 {ratio} [facility] Serum or plasma alkaline justin sphatase measurement (enzymatic activity/volume)Ordered By: Rd Brown on 02-09-2023 ALP [Catalytic activity/Vol] 66 U/L 32-92 [facility] Serum or plasma anion gap de terminationOrdered By: Rd Brown on 01-06-2023 Anion gap [Moles/Vol] 19.4 mmol/L 6.0-15.0 [facility] Serum or plasma aspartate am inotransferase measurement (enzymatic activity/volume)Ordered By: Rd Brown on 01-06-2023 AST [Catalytic activity/Vol] 20 U/L 10-42 [facility] Serum or plasma calcium tammy urement (mass/volume)Ordered By: Rd Brown on 01-06-2023 Calcium [Mass/Vol] 9.8 mg/dL 8.2-10.2 [facility] Serum or plasma chloride judy surement (moles/volume)Ordered By: Rd Brown on 01-06-2023 Chloride [Moles/Vol] 91 mmol/L 95-114 [facility] Serum or plasma creatinine m easurement with calculation of estimated glomerular filtrOrdered By: Rd Brown on 01-06-2023 Creatinine and Glomerular filtration rate.predicted panel (S/P/Bld) 0.86 mg/dL 0.44-1.03 [facility] Serum or plasma glucose tammy urement (mass/volume)Ordered By: Rd Brown on 01-06-2023 Glucose [Mass/Vol] 80 mg/dL 70-100 [facility] Serum or plasma potassium me asurement (moles/volume)Ordered By: Rd Brown on 01-06-2023 Potassium [Moles/Vol] 2.7 mmol/L 3.5-5.1 [facility] Serum or plasma sodium measu rement (moles/volume)Ordered By: Rd Brown on 01-06-2023 Sodium [Moles/Vol] 132 mmol/L 136-146 [facility] Serum or plasma total biliru bin measurement (mass/volume)Ordered By: Rd Brown on 01-06-2023 Bilirubin [Mass/Vol] 1.5 mg/dL 0.3-1.2 [facility] Serum or plasma total carbon dioxide measurement (moles/volume)Ordered By: Rd Brown on 01-06-2023 CO2 [Moles/Vol] 24.3 mmol/L 22.0-30.0 [facility] Serum or plasma urea nitroge n measurement (mass/volume)Ordered By: Rd Brown on 01-06-2023 Urea nitrogen [Mass/Vol] 19 mg/dL 9-23 [facility] Specific gravity Auto test s trip (U) [Rel density]Ordered By: Rd Brown on 01-06-2023 Specific gravity (U) [Rel density] 1.027 1.001-1.03 0 [facility] Squamous epithelial cells de tection in urine sediment by light microscopyOrdered By: Rd Brown on 01-06-2023 Epithelial cells.squamous LM Ql (Urine sed) 10-19 [HPF] 0-2 [facility] Troponin I.cardiac [Mass/vol ume] in Serum or Plasma by High sensitivity methodOrdered By: Federico Randolph on 01-06-2023 Troponin I.cardiac High sensitivity method [Mass/Vol] 6 pg/mL 0-15 [facility] Urine bacteria detection by automated methodOrdered By: Rd Brown on 01-06-2023 Bacteria Auto Ql (U) 1+ None Seen [facility] Urine clarity by refractomet ry automatedOrdered By: Rd Brown on 01-06-2023 Clarity Refractometry automated (U) Cloudy Clear [facility] Urine cocaine detectionOrder ed By: Anette Stout on 01-06-2023 Cocaine Ql (U) Negative Negative [facility] Urine glucose measurement by automated test strip (mass/volume)Ordered By: Rd Brown on 01-06-2023 Glucose Auto test strip (U) [Mass/Vol] Normal mg/dL Normal [facility] Urine hemoglobin detection b y automated test stripOrdered By: Rd Brown on 01-06-2023 Hemoglobin Auto test strip Ql (U) 3+ Negative [facility] Urine lactic acid measuremen tOrdered By: Rd Brown on 01-06-2023 Lactate (U) [Moles/Vol] 1.6 mmol/L 0.5-2.2 [facility] Urine leukocyte esterase det ection by automated test stripOrdered By: Rd Brown on 01-06-2023 Leukocyte esterase Auto test strip Ql (U) 2+ Negative [facility] Urobilinogen Auto test strip (U) [Mass/Vol]Ordered By: Rd Brown on 01-06-2023 Urobilinogen (U) [Mass/Vol] Normal mg/dL Normal [facility] WBC Auto (Bld) [#/Vol]Ordere d By: Rd Brown on 01-06-2023 WBC (Bld) [#/Vol] 17.7 10*3/uL 4.5-13.5 [facility] pH Auto test strip (U)Ordere d By: Rd rBown on 01-06-2023 pH (U) 6.5 [pH] 5.0-9.0 [facility] Albumin [Mass/volume] in Ser um or PlasmaOrdered By: Ravi Arguello on 01-02-2023 Albumin [Mass/Vol] 5.0 g/dL 3.2-5.5 [facility] Automated erythrocytes count in urine sediment (number/area)Ordered By: Ravi Arguello on 01-02-2023 RBC Auto (Urine sed) [#/Area] 3-4 [HPF] 0-4 [facility] Automated leukocytes count i n urine sediment (number/area)Ordered By: Ravi Arguello on 01-02-2023 WBC Auto (Urine sed) [#/Area] 50-100 [HPF] 0-4 [facility] Automated urine hyaline cast s count (number/volume)Ordered By: Ravi Arguello on 01-02-2023 Hyaline casts Auto (U) [#/Vol] None seen [LPF] 0-1 [facility] Basophils Auto (Bld) [#/Vol] Ordered By: Ravi Arguello on 01-02-2023 Basophils (Bld) [#/Vol] 0.1 10*3/uL 0.0-0.1 [facility] Basophils/100 WBC Auto (Bld) Ordered By: Ravi Arguello on 01-02-2023 Basophils/100 WBC (Bld) 0.5 % . [facility] Bilirubin Test strip Ql (U)O rdered By: Ravi Agruello on 01-02-2023 Bilirubin Ql (U) Negative Negative [facility] Casts typing in urine sedime nt by light microscopyOrdered By: Ravi Arguello on 01-02-2023 Casts LM Nom (Urine sed) None seen [LPF] None Seen [facility] Color Auto (U)Ordered By: Gisselle Arguello on 01-02-2023 Color (U) Yellow Yellow [facility] Eosinophils Auto (Bld) [#/Vo l]Ordered By: Ravi Arguello on 01-02-2023 Eosinophils (Bld) [#/Vol] 0.0 10*3/uL 0.0-0.7 [facility] Eosinophils/100 WBC Auto (Bl d)Ordered By: Ravi Arguello on 01-02-2023 Eosinophils/100 WBC (Bld) 0.0 % . [facility] Erythrocyte distribution wid th Auto (RBC) [Ratio]Ordered By: Ravi Arguello on 01-02-2023 Erythrocyte distribution width (RBC) [Ratio] 13.9 % 11.9-15.3 [facility] Estimated glomerular filtrat ion rate (GFR) non- AmericanOrdered By: Ravi Arguello on 01-02-2023 GFR/1.73 sq M.predicted among non-blacks MDRD (S/P/Bld) [Vol rate/Area] > 60 mL/Min [facility] Globulin Calc (S) [Mass/Vol] Ordered By: Ravi Arguello on 01-02-2023 Globulin (S) [Mass/Vol] 2.9 g/dL [facility] HCG ( test) IA.rapi d Ql (U)Ordered By: Ravi Arguello on 01-02-2023 HCG ( test) Ql (U) Negative [facility] Hematocrit Auto (Bld) [Volum e fraction]Ordered By: Ravi Arguello on 01-02-2023 Hematocrit (Bld) [Volume fraction] 42.1 % 36.0-46.0 [facility] Hemoglobin [Mass/volume] in BloodOrdered By: Ravi Arguello on 01-02-2023 Hemoglobin (Bld) [Mass/Vol] 14.0 g/dL 12.0-16.0 [facility] Ketones Auto test strip (U) [Mass/Vol]Ordered By: Ravi Arguello on 01-02-2023 Ketones (U) [Mass/Vol] 3+ Negative [facility] Leukocytes [#/volume] correc venkata for nucleated erythrocytes in Blood by Automated counOrdered By: Ravi Arguello on 01-02-2023 WBC corrected for nucl RBC Auto (Bld) [#/Vol] 14.1 10*3/uL 4.5-13.5 [facility] Lymphocytes Auto (Bld) [#/Vo l]Ordered By: Ravi Arguello on 01-02-2023 Lymphocytes (Bld) [#/Vol] 1.4 10*3/uL 1.20-4.8 [facility] Lymphocytes/100 WBC Auto (Bl d)Ordered By: Ravi Arguello on 01-02-2023 Lymphocytes/100 WBC (Bld) 10.1 % . [facility] MCH Auto (RBC) [Entitic mass ]Ordered By: Ravi Arguello on 01-02-2023 MCH (RBC) [Entitic mass] 28.6 pg 25.0-35.0 [facility] MCHC Auto (RBC) [Mass/Vol]Or dered By: Ravi Arguello on 01-02-2023 MCHC (RBC) [Mass/Vol] 33.2 g/dL 31.0-37.0 [facility] MCV Auto (RBC) [Entitic vol] Ordered By: Ravi Arguello on 01-02-2023 MCV (RBC) [Entitic vol] 86.2 fL 78-102 [facility] Monocyte distribution width [Entitic volume] in Blood by AutomatedOrdered By: Ravi Arguello on 01-02-2023 Monocyte distribution width Auto (Bld) [Entitic vol] 16.52 % 0.00-20.00 [facility] Monocytes Auto (Bld) [#/Vol] Ordered By: Ravi Arguello on 01-02-2023 Monocytes (Bld) [#/Vol] 1.0 10*3/uL 0.1-1.00 [facility] Monocytes/100 WBC Auto (Bld) Ordered By: Ravi Arguello on 01-02-2023 Monocytes/100 WBC (Bld) 7.0 % . [facility] Neutrophils Auto (Bld) [#/Vo l]Ordered By: Ravi Arguello on 01-02-2023 Neutrophils (Bld) [#/Vol] 11.6 10*3/uL 1.2-7.7 [facility] Neutrophils/100 WBC Auto (Bl d)Ordered By: Ravi Arguello on 01-02-2023 Neutrophils/100 WBC (Bld) 82.4 % . [facility] Nitrite Test strip Ql (U)Ord ered By: Ravi Arguello on 01-02-2023 Nitrite Ql (U) Negative Negative [facility] No Panel InformationOrdered By: Ravi Arguello on 01-02-2023 > 60 mL/Min [facility] 29.0 U/L 22-51 [facility] 86.85 [facility] Nucleated erythrocytes [Pres ence] in Blood by Automated countOrdered By: Ravi Arguello on 01-02-2023 Nucleated RBC Auto Ql (Bld) 0.0 /100{WBC} 0-0.5 [facility] Platelet mean volume Auto (B ld) [Entitic vol]Ordered By: Ravi Arguello on 01-02-2023 Platelet mean volume (Bld) [Entitic vol] 8.4 fL 6.3-10.7 [facility] Platelets Auto (Bld) [#/Vol] Ordered By: Ravi Arguello on 01-02-2023 Platelets (Bld) [#/Vol] 299 10*3/uL 150-450 [facility] Protein Auto test strip (U) [Mass/Vol]Ordered By: Ravi Arguello on 01-02-2023 Protein (U) [Mass/Vol] 100 mg/dL Negative [facility] Protein [Mass/volume] in Ser um or PlasmaOrdered By: Ravi Arguello on 01-02-2023 Protein [Mass/Vol] 7.9 g/dL 6.1-7.9 [facility] RBC Auto (Bld) [#/Vol]Ordere d By: Ravi Arguello on 01-02-2023 RBC (Bld) [#/Vol] 4.89 10*6/uL 4.10-5.10 [facility] Serum or plasma alanine florez otransferase measurement without P-5'-P (enzymatic activiOrdered By: Ravi Arguello on 01-02-2023 ALT No additional P-5'-P [Catalytic activity/Vol] 26 U/L 10-60 [facility] Serum or plasma albumin/glob ulin mass ratioOrdered By: Ravi Arguello on 01-02-2023 Albumin/Globulin [Mass ratio] 1.7 {ratio} [facility] Serum or plasma alkaline justin sphatase measurement (enzymatic activity/volume)Ordered By: Ravi Arguello on 01-02-2023 ALP [Catalytic activity/Vol] 60 U/L 32-92 [facility] Serum or plasma anion gap de terminationOrdered By: Ravi Arguello on 01-02-2023 Anion gap [Moles/Vol] 16.4 mmol/L 6.0-15.0 [facility] Serum or plasma aspartate am inotransferase measurement (enzymatic activity/volume)Ordered By: Ravi Arguello on 01-02-2023 AST [Catalytic activity/Vol] 32 U/L 10-42 [facility] Serum or plasma calcium tammy urement (mass/volume)Ordered By: Ravi Arguello on 01-02-2023 Calcium [Mass/Vol] 9.8 mg/dL 8.2-10.2 [facility] Serum or plasma chloride judy surement (moles/volume)Ordered By: Ravi Arguello on 01-02-2023 Chloride [Moles/Vol] 106 mmol/L 95-114 [facility] Serum or plasma creatinine m easurement with calculation of estimated glomerular filtrOrdered By: Ravi Arguello on 01-02-2023 Creatinine and Glomerular filtration rate.predicted panel (S/P/Bld) 1.01 mg/dL 0.44-1.03 [facility] Serum or plasma glucose tammy urement (mass/volume)Ordered By: Ravi Arguello on 01-02-2023 Glucose [Mass/Vol] 123 mg/dL 70-100 [facility] Serum or plasma potassium me asurement (moles/volume)Ordered By: Ravi Arguello on 01-02-2023 Potassium [Moles/Vol] 3.2 mmol/L 3.5-5.1 [facility] Serum or plasma sodium measu rement (moles/volume)Ordered By: Ravi Arguello on 01-02-2023 Sodium [Moles/Vol] 142 mmol/L 136-146 [facility] Serum or plasma total biliru bin measurement (mass/volume)Ordered By: Ravi Arguello on 01-02-2023 Bilirubin [Mass/Vol] 0.8 mg/dL 0.3-1.2 [facility] Serum or plasma total carbon dioxide measurement (moles/volume)Ordered By: Ravi Arguello on 01-02-2023 CO2 [Moles/Vol] 22.8 mmol/L 22.0-30.0 [facility] Serum or plasma urea nitroge n measurement (mass/volume)Ordered By: Ravi Arguello on 01-02-2023 Urea nitrogen [Mass/Vol] 22 mg/dL 9- [facility] Specific gravity Auto test s trip (U) [Rel density]Ordered By: Ravi Arguello on 01-02-2023 Specific gravity (U) [Rel density] 1.036 1.001-1.03 0 [facility] Squamous epithelial cells de tection in urine sediment by light microscopyOrdered By: Ravi Arguello on 01-02-2023 Epithelial cells.squamous LM Ql (Urine sed) Innumerable [HPF] 0-2 [facility] Urine bacteria detection by automated methodOrdered By: Ravi Arguello on 01-02-2023 Bacteria Auto Ql (U) 3+ None Seen [facility] Urine clarity by refractomet ry automatedOrdered By: Ravi Arguello on 01-02-2023 Clarity Refractometry automated (U) Turbid Clear [facility] Urine culture routineOrdered By: Ravi Arguello on 01-02-2023 Bacteria identified Cx Nom (U) [facility] Urine glucose measurement by automated test strip (mass/volume)Ordered By: Ravi Arguello on 01-02-2023 Glucose Auto test strip (U) [Mass/Vol] Normal mg/dL Normal [facility] Urine hemoglobin detection b y automated test stripOrdered By: Ravi Arguello on 01-02-2023 Hemoglobin Auto test strip Ql (U) Negative Negative [facility] Urine leukocyte esterase det ection by automated test stripOrdered By: Ravi Arguello on 01-02-2023 Leukocyte esterase Auto test strip Ql (U) 3+ Negative [facility] Urobilinogen Auto test strip (U) [Mass/Vol]Ordered By: Ravi Arguello on 01-02-2023 Urobilinogen (U) [Mass/Vol] Normal mg/dL Normal [facility] WBC Auto (Bld) [#/Vol]Ordere d By: Ravi Arguello on 01-02-2023 WBC (Bld) [#/Vol] 14.1 10*3/uL 4.5-13.5 [facility] pH Auto test strip (U)Ordere d By: Ravi Arguello on 01-02-2023 pH (U) 6.0 [pH] 5.0-9.0 [facility] CULTURE URINEon 01-01-2023 CULTURE URINE Culture Observations : LIGHT GROWTH OF MIXED GENITAL JORI. NO POTENTIAL PATHOGENS SEEN. Normal [facility] Comment on above: Performed By: #### U RCX #### [facility] [address] [place] [address] Dr. Dacia Ackerman Covid-19 PCR (CVDTB)on SARS-CoV-2 (COVID-19) RNA JANAK+probe Ql (Unsp spec) Not detected Normal NOT DETECTED [facility] Comment on above: Result Comment: When [...] for this test is supported by the [place] of [employer] and Human Service's declaration that [...] used). Performed By: #### C VDTBH #### [facility] [address] [address] [address] Dacia Ackerman DRUG SCREEN RAPID (URINE)on 01-01-2023 AMP Negative Normal NEGATIVE [facility] Comment on above: Performed By: #### D RUGRPD #### [facility] [address] [address] [address] Dacia Ackerman BAR Negative Normal NEGATIVE [facility] Comment on above: Performed By: #### D RUGRPD #### [facility] [address] [address] [address] Dacia Ackerman BUP Negative Normal NEGATIVE [facility] Comment on above: Performed By: #### D RUGRPD #### [facility] [address] [place] [address] Dr. Dacia Ackerman BZO Negative Normal NEGATIVE [facility] Comment on above: Performed By: #### D RUGRPD #### [facility] [facility] [address] [place] [address] Dr. Dacia Ackerman MELINA Negative Normal NEGATIVE [facility] Comment on above: Performed By: #### D RUGRPD #### [facility] [address] [address] [address] Dacia Ackerman CUT-OFFS SEE BELOW Normal [facility] Comment on above: Result Comment: AMP [...] ng/mL Performed By: #### D RUGRPD #### [facility] [address] [place] [address] Dr. Dacia Ackerman DRUG CUT HEADER DRUG CLASS TEST SYST EM CUT-OFF CONCENTRATIONS ARE FOLLOWS: Normal [facility] Comment on above: Performed By: #### D RUGRPD #### [facility] [address] [address] [address] Dacia Ackerman mAMP Negative Normal NEGATIVE [facility] Comment on above: Performed By: #### D RUGRPD #### [facility] [address] [place] [address] Dr. Dacia Ackerman MTD Negative Normal NEGATIVE [facility] Comment on above: Performed By: #### D RUGRPD #### [facility] [address] [place] [address] Dr. Dacia Ackerman OPI Negative Normal NEGATIVE [facility] Comment on above: Performed By: #### D RUGRPD #### [facility] [address] [place] [address] Dr. Dacia Ackerman OXY Negative Normal NEGATIVE [facility] Comment on above: Performed By: #### D RUGRPD #### [facility] [address] [place] [address] Dr. Dacia Ackerman PCP Negative Normal NEGATIVE [facility] Comment on above: Performed By: #### D RUGRPD #### [facility] [address] [place] [address] Dr. Dacia Ackerman PPX Negative Normal NEGATIVE [facility] Comment on above: Performed By: #### D RUGRPD #### [facility] [address] [place] [address] Dr. Dacia Ackerman TCA Negative Normal NEGATIVE [facility] Comment on above: Performed By: #### D RUGRPD #### [facility] [address] [place] [address] Dr. Dacia Ackerman THC Positive Abnormal NEGATIVE [facility] Comment on above: Performed By: #### D RUGRPD #### [facility] [address] [place] [address] Dr. Dacia Ackerman ER URINE PROFILEon 3 Bilirubin Ql (U) SMALL Abnormal NEGATIVE [facility] Comment on above: Performed By: #### P REGU, ERUR, UMICRO #### [facility] [address] [place] [address] Dr. Dacia Ackerman Clarity (U) CLEAR Normal CLEAR [facility] Comment on above: Performed By: #### P REGU, ERUR, UMICRO #### [facility] [address] [place] [address] Dr. Dacia Ackerman Color (U) YELLOW Normal YELLOW [facility] Comment on above: Performed By: #### P REGU, ERUR, UMICRO #### [facility] [address] [place] [address] Dr. Dacia OLIVAS A micrscopic examina tion will be performed if indicated. Normal [facility] Comment on above: Performed By: #### P REGU, ERUR, UMICRO #### [facility] [address] [place] [address] Dr. Dacia Ackerman Glucose Ql (U) Negative Normal NEGATIVE [facility] Comment on above: Performed By: #### P REGU, ERUR, UMICRO #### [facility] [address] [place] [address] Dr. Dacia Ackerman Hemoglobin Ql (U) Negative Normal NEGATIVE [facility] Comment on above: Performed By: #### P REGU, ERUR, UMICRO #### [facility] [address] [place] [address] Dr. Dacia Ackerman Ketones Ql (U) >=80 Abnormal NEGATIVE [facility] Comment on above: Performed By: #### P REGU, ERUR, UMICRO #### [facility] [address] [place] [address] Dr. Dacia Ackerman LEUKOCYTES TRACE Abnormal NEGATIVE [facility] Comment on above: Performed By: #### P REGU, ERUR, UMICRO #### [facility] [address] [place] [address] Dr. Dacia Ackerman Nitrite Ql (U) Negative Normal NEGATIVE [facility] Comment on above: Performed By: #### P REGU, ERUR, UMICRO #### [facility] [address] [place] [address] Dr. Dacia Ackerman pH (U) 7.5 [pH] Normal 5-9 [facility] Comment on above: Performed By: #### P PAULA ELLINGTON UMICRO #### [facility] [address] [place] [address] Dr. Dacia Ackerman Protein (U) [Mass/Vol] 100 mg/dL Abnormal NEGAT JOAO/ TRACE [facility] Comment on above: Performed By: #### P PAULA ELLINGTON UMICRO #### [facility] [address] [place] [address] Dr. Dacia Ackerman SPEC GRAVITY 1.020 Normal 1.005-<=1. 025 [facility] Comment on above: Performed By: #### P PAULA ELLINGTON UMICRO #### [facility] [address] [place] [address] Dr. Dacia Ackerman UR MICRO IND INDICATED Normal [facility] Comment on above: Performed By: #### PAULA ATKINS UMICRO #### [facility] [address] [place] [address] Dr. Dacia Ackerman Urobilinogen Qn (U) 1.0 {Kaykay'U}/dL Normal 0.2 - 1. 0 [facility] Comment on above: Performed By: #### P PAULA ELLINGTON UMICRO #### [facility] [address] [place] [address] Dr. Dacia Ackerman INFLUENZA A AND B [facility] 01-01 [facility] SEE BELOW Normal [facility] Comment on above: Result Comment: Nega tive for Flu A protein angiten. Infection due to Flu A cannot be ruled out. Flu A angiten in the sample may be below the detection limit of the test. Performed By: #### I NFLUAB #### [facility] [address] [place] [address] Dr. Dacia Ackerman INFLUBNEGH SEE BELOW Normal [facility] Comment on above: Result Comment: Nega tive for Flu B protein antigen. Infection due to Flu B cannot be ruled out. Flu B antigen in the sample may be below the detection limit of the test. Performed By: #### I NFLUAB #### [facility] [address] [place] [address] Dr. Dacia Ackerman INFLUENZA A AG Negative Normal NEGATIVE SEE COMMENT [facility] Comment on above: Performed By: #### I NFLUAB #### [facility] [address] [place] [address] Dr. Dacia Ackerman INFLUENZA B AG Negative Normal NEGATIVE SEE COMMENT [facility] Comment on above: Performed By: #### I NFLUAB #### [facility] [address] [place] [address] Dr. Dacia Ackerman URon 01-01-2023 , QUAL Negative Normal NEGATIVE [facility] Comment on above: Performed By: #### P REGU ERUR, UMICRO #### [facility] [address] [place] [address] Dr. Dacia Ackerman URINE MICROSCOPIC ONLYon BACTERIA MODERATE Abnormal NONE SEEN [facility] Comment on above: Performed By: #### P REGU, ERUR, UMICRO #### [facility] [address] [place] [address] Dr. Dacia Ackerman Bacteria identified Cx Nom (U) INDICATED Normal [facility] Comment on above: Performed By: #### P REGU, ERUR, UMICRO #### [facility] [address] [place] [address] Dr. Dacia Ackerman CAST NONE SEEN Normal NONE SEEN [facility] Comment on above: Performed By: #### P REGU, ERUR, UMICRO #### [facility] [address] [place] [address] Dr. Dacia Ackerman Crystals LM Nom (Urine sed) NONE SEEN Normal NONE SEEN [facility] Comment on above: Performed By: #### P REGU, ERUR, UMICRO #### [facility] [address] [place] [address] Dr. Dacia Ackerman Epithelial cells LM Ql (Urine sed) MANY Abnormal NONE SEEN /RARE [facility] Comment on above: Performed By: #### P REGU, ERUR, UMICRO #### [facility] [address] [place] [address] Dr. Dacia Ackerman MUCOUS SMALL Abnormal NONE SEEN [facility] Comment on above: Performed By: #### P REGU, ERUR, UMICRO #### [facility] [address] [address] [address] Dacia Ackerman RBC NONE SEEN Abnormal 0-2 [facility] Comment on above: Performed By: #### P REGU, ERUR, UMICRO #### [facility] [address] [address] [address] Dacia Ackerman WBC 5-10 Abnormal NONE SEEN [facility] Comment on above: Performed By: #### P REGU, ERUR, UMICRO #### [facility] [address] [address] [address] Dacia Ackerman XR CHEST 1 Von [...] KIA ARVIZU Date: 2023-01-01 13:00 Normal [facility] Automated erythrocytes count in urine sediment (number/area)Ordered By: Federico Randolph on 12-31-2022 RBC Auto (Urine sed) [#/Area] 0-1 [HPF] 0-4 [facility] Automated leukocytes count i n urine sediment (number/area)Ordered By: Federico Randolph on 12-31-2022 WBC Auto (Urine sed) [#/Area] 20-49 [HPF] 0-4 [facility] Bacteria identified Cx Nom ( U)Ordered By: Federico Randolph on 12-31-2022 Urine culture routine Staphylococcus epidermidis [facility] Bilirubin Test strip Ql (U)O rdered By: Federico Randolph on 12-31-2022 Bilirubin Ql (U) Negative Negative [facility] COVID-19 SOFIAOrdered By: Deep Randolph on 12-31-2022 SARS-CoV+SARS-CoV-2 (COVID-19) Ag IA.rapid Ql (Resp) Negative Negative [facility] Casts typing in urine sedime nt by light microscopyOrdered By: Federico Randolph on 12-31-2022 Casts LM Nom (Urine sed) None seen [LPF] None Seen [facility] Color Auto (U)Ordered By: Deep Randolph on 12-31-2022 Color (U) Yellow Yellow [facility] HCG ( test) IA.rapi d Ql (U)Ordered By: Federico Randolph on 12-31-2022 HCG ( test) Ql (U) Negative [facility] Influenza virus A and B anti gen detection by immunoassayOrdered By: Federico Randolph on 12-31-2022 FLUAV+FLUBV Ag IA Ql (Unsp spec) [facility] Ketones Auto test strip (U) [Mass/Vol]Ordered By: Federico Randolph on 12-31-2022 Ketones (U) [Mass/Vol] 3+ Negative [facility] Nitrite Test strip Ql (U)Ord ered By: Federico Randolph on 12-31-2022 Nitrite Ql (U) Negative Negative [facility] No Panel InformationOrdered By: Federico Randolph on 12-31-2022 None seen [LPF] 0-8 [facility] Protein Auto test strip (U) [Mass/Vol]Ordered By: Federico Randolph on 12-31-2022 Protein (U) [Mass/Vol] 100 mg/dL Negative [facility] Specific gravity Auto test s trip (U) [Rel density]Ordered By: Federico Randolph on 12-31-2022 Specific gravity (U) [Rel density] 1.026 1.001-1.03 0 [facility] Squamous epithelial cells de tection in urine sediment by light microscopyOrdered By: Federico Randolph on 12-31-2022 Epithelial cells.squamous LM Ql (Urine sed) Innumerable [HPF] 0-2 [facility] Urine bacteria detection by automated methodOrdered By: Federico Randolph on 12-31-2022 Bacteria Auto Ql (U) 3+ None Seen [facility] Urine clarity by refractomet ry automatedOrdered By: Federico Randolph on 12-31-2022 Clarity Refractometry automated (U) Turbid Clear [facility] Urine glucose measurement by automated test strip (mass/volume)Ordered By: Federico Randolph on 12-31-2022 Glucose Auto test strip (U) [Mass/Vol] Normal mg/dL Normal [facility] Urine hemoglobin detection b y automated test stripOrdered By: Federico Randolph on 12-31-2022 Hemoglobin Auto test strip Ql (U) Negative Negative [facility] Urine leukocyte esterase det ection by automated test stripOrdered By: Federico Randolph on 12-31-2022 Leukocyte esterase Auto test strip Ql (U) 2+ Negative [facility] Urobilinogen Auto test strip (U) [Mass/Vol]Ordered By: Federico Randolph on 12-31-2022 Urobilinogen (U) [Mass/Vol] Normal mg/dL Normal [facility] pH Auto test strip (U)Ordere d By: Federico Randolph on 12-31-2022 pH (U) [pH] 5.0-9.0 [facility] Amphetamine Screen Ql (U)Ord ered By: Dixon Newberry on 11-09-2022 Amphetamines Ql (U) Negative Negative [facility] Barbiturates [Presence] in U rineOrdered By: Dixon Newberry on 11-09-2022 Barbiturates Ql (U) Negative Negative [facility] Basophils Auto (Bld) [#/Vol] Ordered By: Dixon Newberry on 11-09-2022 Basophils (Bld) [#/Vol] 0.0 10*3/uL 0.0-0.1 [facility] Basophils/100 WBC Auto (Bld) Ordered By: Dixon Newberry on 11-09-2022 Basophils/100 WBC (Bld) 0.3 % . [facility] Benzodiazepines [Presence] i n UrineOrdered By: Dixon Newberry on 11-09-2022 Benzodiazepines Ql (U) Negative Negative [facility] Bilirubin Test strip Ql (U)O rdered By: Dixon Newberry on 11-09-2022 Bilirubin Ql (U) Negative Negative [facility] Body fluid albumin measureme nt (mass/volume)Ordered By: Dixon Newberry on 11-09-2022 Albumin (Body fld) [Mass/Vol] 4.2 g/dL 3.2-5.5 [facility] Cannabinoids [Presence] in U rine by Screen methodOrdered By: Dixon Newberry on 11-09-2022 Cannabinoids Screen Ql (U) Positive Negative [facility] Color Auto (U)Ordered By: Nazia Newberry on 11-09-2022 Color (U) Yellow Yellow [facility] Eosinophils Auto (Bld) [#/Vo l]Ordered By: Dixon Newberry on 11-09-2022 Eosinophils (Bld) [#/Vol] 0.1 10*3/uL 0.0-0.7 [facility] Eosinophils/100 WBC Auto (Bl d)Ordered By: Dixon Newberry on 11-09-2022 Eosinophils/100 WBC (Bld) 0.8 % . [facility] Erythrocyte distribution wid th Auto (RBC) [Ratio]Ordered By: Dixon Newberry on 11-09-2022 Erythrocyte distribution width (RBC) [Ratio] 13.8 % 11.9-15.3 [facility] Estimated glomerular filtrat ion rate (GFR) non- AmericanOrdered By: Dixon Newberry on 11-09-2022 GFR/1.73 sq M.predicted among non-blacks MDRD (S/P/Bld) [Vol rate/Area] > 60 mL/Min [facility] Globulin Calc (S) [Mass/Vol] Ordered By: Dixon Newberry on 11-09-2022 Globulin (S) [Mass/Vol] 2.4 g/dL [facility] HCG ( test) IA.rapi d Ql (U)Ordered By: Dixon Newberry on 11-09-2022 HCG ( test) Ql (U) Negative [facility] Hematocrit Auto (Bld) [Volum e fraction]Ordered By: Dixon Newberry on 11-09-2022 Hematocrit (Bld) [Volume fraction] 41.0 % 36.0-46.0 [facility] Hemoglobin [Mass/volume] in BloodOrdered By: Dixon Newberry on 11-09-2022 Hemoglobin (Bld) [Mass/Vol] 13.4 g/dL 12.0-16.0 [facility] Ketones Auto test strip (U) [Mass/Vol]Ordered By: Dixon Newberry on 11-09-2022 Ketones (U) [Mass/Vol] Negative Negative [facility] Leukocytes [#/volume] correc venkata for nucleated erythrocytes in Blood by Automated counOrdered By: Dixon Newberry on 11-09-2022 WBC corrected for nucl RBC Auto (Bld) [#/Vol] 11.7 10*3/uL 4.5-13.5 [facility] Lymphocytes Auto (Bld) [#/Vo l]Ordered By: Dixon Newberry on 11-09-2022 Lymphocytes (Bld) [#/Vol] 1.4 10*3/uL 1.20-4.8 [facility] Lymphocytes/100 WBC Auto (Bl d)Ordered By: Dixon Newberry on 11-09-2022 Lymphocytes/100 WBC (Bld) 12.1 % . [facility] MCH Auto (RBC) [Entitic mass ]Ordered By: Dixon Newberry on 11-09-2022 MCH (RBC) [Entitic mass] 28.1 pg 25.0-35.0 [facility] MCHC Auto (RBC) [Mass/Vol]Or dered By: Dixon Newberry on 11-09-2022 MCHC (RBC) [Mass/Vol] 32.8 g/dL 31.0-37.0 [facility] MCV Auto (RBC) [Entitic vol] Ordered By: Dixon Newberry on 11-09-2022 MCV (RBC) [Entitic vol] 85.7 fL 78-102 [facility] Monocyte distribution width [Entitic volume] in Blood by AutomatedOrdered By: Dixon Newberry on 11-09-2022 Monocyte distribution width Auto (Bld) [Entitic vol] 16.08 % 0.00-20.00 [facility] Monocytes Auto (Bld) [#/Vol] Ordered By: Dixon Newberry on 11-09-2022 Monocytes (Bld) [#/Vol] 0.5 10*3/uL 0.1-1.00 [facility] Monocytes/100 WBC Auto (Bld) Ordered By: Dixon Newberry on 11-09-2022 Monocytes/100 WBC (Bld) 4.7 % . [facility] Neutrophils Auto (Bld) [#/Vo l]Ordered By: Dixon Newberry on 11-09-2022 Neutrophils (Bld) [#/Vol] 9.6 10*3/uL 1.2-7.7 [facility] Neutrophils/100 WBC Auto (Bl d)Ordered By: Dixon Newberry on 11-09-2022 Neutrophils/100 WBC (Bld) 82.1 % . [facility] Nitrite Test strip Ql (U)Ord ered By: Dixon Newberry on 11-09-2022 Nitrite Ql (U) Negative Negative [facility] No Panel InformationOrdered By: Dixon Newberry on 11-09-2022 Negative Negative [facility] > 60 mL/Min [facility] 118.86 [facility] Nucleated erythrocytes [Pres ence] in Blood by Automated countOrdered By: Dixon Newberry on 11-09-2022 Nucleated RBC Auto Ql (Bld) 0.1 /100{WBC} 0-0.5 [facility] Phencyclidine Screen Ql (U)O rdered By: Dixon Newberry on 11-09-2022 Phencyclidine Ql (U) Negative Negative [facility] Platelet mean volume Auto (B ld) [Entitic vol]Ordered By: Dixon Newberry on 11-09-2022 Platelet mean volume (Bld) [Entitic vol] 8.5 fL 6.3-10.7 [facility] Platelets Auto (Bld) [#/Vol] Ordered By: Dixon Newberry on 11-09-2022 Platelets (Bld) [#/Vol] 274 10*3/uL 150-450 [facility] Protein Auto test strip (U) [Mass/Vol]Ordered By: Dixon Newberry on 11-09-2022 Protein (U) [Mass/Vol] Negative Negative [facility] Protein [Mass/volume] in Ser um or PlasmaOrdered By: Dixon Newberry on 11-09-2022 Protein [Mass/Vol] 6.6 g/dL 6.1-7.9 [facility] RBC Auto (Bld) [#/Vol]Ordere d By: Dixon Newberry on 11-09-2022 RBC (Bld) [#/Vol] 4.78 10*6/uL 4.10-5.10 [facility] Serum or plasma alanine florez otransferase measurement without P-5'-P (enzymatic activiOrdered By: Dixon Newberry on 11-09-2022 ALT No additional P-5'-P [Catalytic activity/Vol] 67 U/L 1060 [facility] Serum or plasma albumin/glob ulin mass ratioOrdered By: Dixon Newberry on 11-09-2022 Albumin/Globulin [Mass ratio] 1.8 {ratio} [facility] Serum or plasma alkaline justin sphatase measurement (enzymatic activity/volume)Ordered By: Dixon Newberry on 11-09-2022 ALP [Catalytic activity/Vol] 59 U/L 32-92 [facility] Serum or plasma anion gap de terminationOrdered By: Dixon Newberry on 11-09-2022 Anion gap [Moles/Vol] 19.7 mmol/L 6.0-15.0 [facility] Serum or plasma aspartate am inotransferase measurement (enzymatic activity/volume)Ordered By: Dixon Newberry on 11-09-2022 AST [Catalytic activity/Vol] 48 U/L 10 [facility] Serum or plasma calcium tammy urement (mass/volume)Ordered By: Dixon Newberry on 11-09-2022 Calcium [Mass/Vol] 9.6 mg/dL 8.2-10.2 [facility] Serum or plasma chloride judy surement (moles/volume)Ordered By: Dixon Newberry on 11-09-2022 Chloride [Moles/Vol] 98 mmol/L 95-114 [facility] Serum or plasma creatinine m easurement with calculation of estimated glomerular filtrOrdered By: Dixon Newberry on 11-09-2022 Creatinine and Glomerular filtration rate.predicted panel (S/P/Bld) 0.76 mg/dL 0.44-1.03 [facility] Serum or plasma glucose tammy urement (mass/volume)Ordered By: Dixon Newberry on 11-09-2022 Glucose [Mass/Vol] 110 mg/dL 70-100 [facility] Serum or plasma potassium me asurement (moles/volume)Ordered By: Dixon Newberry on 11-09-2022 Potassium [Moles/Vol] 3.4 mmol/L 3.5-5.1 [facility] Serum or plasma sodium measu rement (moles/volume)Ordered By: Dixon Newberry on 11-09-2022 Sodium [Moles/Vol] 137 mmol/L 136-146 [facility] Serum or plasma total biliru bin measurement (mass/volume)Ordered By: Dixon Newberry on 11-09-2022 Bilirubin [Mass/Vol] 0.5 mg/dL 0.3-1.2 [facility] Serum or plasma total carbon dioxide measurement (moles/volume)Ordered By: Dixon Newberry on 11-09-2022 CO2 [Moles/Vol] 22.7 mmol/L 22.0-30.0 [facility] Serum or plasma urea nitroge n measurement (mass/volume)Ordered By: Dixon Newberry on 11-09-2022 Urea nitrogen [Mass/Vol] 3 mg/dL 9- [facility] Specific gravity Auto test s trip (U) [Rel density]Ordered By: Dixon Newberry on 11-09-2022 Specific gravity (U) [Rel density] 1.009 1.001-1.03 0 [facility] Urine clarity by refractomet ry automatedOrdered By: Dixon Newberry on 11-09-2022 Clarity Refractometry automated (U) Clear Clear [facility] Urine cocaine detectionOrder ed By: Dixon Newberry on 11-09-2022 Cocaine Ql (U) Negative Negative [facility] Urine glucose measurement by automated test strip (mass/volume)Ordered By: Dixon Newberry on 11-09-2022 Glucose Auto test strip (U) [Mass/Vol] Normal mg/dL Normal [facility] Urine hemoglobin detection b y automated test stripOrdered By: Dixon Newberry on 11-09-2022 Hemoglobin Auto test strip Ql (U) Negative Negative [facility] Urine leukocyte esterase det ection by automated test stripOrdered By: Dixon Newberry on 11-09-2022 Leukocyte esterase Auto test strip Ql (U) Negative Negative [facility] Urobilinogen Auto test strip (U) [Mass/Vol]Ordered By: Dixon Newberry on 11-09-2022 Urobilinogen (U) [Mass/Vol] Normal mg/dL Normal [facility] WBC Auto (Bld) [#/Vol]Ordere d By: Dixon Newberry on 11-09-2022 WBC (Bld) [#/Vol] 11.7 10*3/uL 4.5-13.5 [facility] pH Auto test strip (U)Ordere d By: Dixon Newberry on 11-09-2022 pH (U) [pH] 5.0-9.0 [facility] Albumin [Mass/volume] in Ser um or PlasmaOrdered By: Art Bianchi on 11-07-2022 Albumin [Mass/Vol] 4.6 g/dL 3.2-5.5 [facility] Automated erythrocytes count in urine sediment (number/area)Ordered By: Art Bianchi on 11-07-2022 RBC Auto (Urine sed) [#/Area] 0-1 [HPF] 0-4 [facility] Automated leukocytes count i n urine sediment (number/area)Ordered By: Art Bianchi on 11-07-2022 WBC Auto (Urine sed) [#/Area] 3-4 [HPF] 0-4 [facility] Basophils Auto (Bld) [#/Vol] Ordered By: Art Bianchi on 11-07-2022 Basophils (Bld) [#/Vol] 0.1 10*3/uL 0.0-0.1 [facility] Basophils/100 WBC Auto (Bld) Ordered By: Art Bianchi on 11-07-2022 Basophils/100 WBC (Bld) 1.0 % . [facility] Bilirubin Test strip Ql (U)O rdered By: Art Bianchi on 11-07-2022 Bilirubin Ql (U) Negative Negative [facility] Color Auto (U)Ordered By: Adrian red Tash on 11-07-2022 Color (U) Yellow Yellow [facility] Eosinophils Auto (Bld) [#/Vo l]Ordered By: Art Bianchi on 11-07-2022 Eosinophils (Bld) [#/Vol] 0.1 10*3/uL 0.0-0.7 [facility] Eosinophils/100 WBC Auto (Bl d)Ordered By: Art Bianchi on 11-07-2022 Eosinophils/100 WBC (Bld) 1.2 % . [facility] Erythrocyte distribution wid th Auto (RBC) [Ratio]Ordered By: Art Bianchi on 11-07-2022 Erythrocyte distribution width (RBC) [Ratio] 14.0 % 11.9-15.3 [facility] Estimated glomerular filtrat ion rate (GFR) non- AmericanOrdered By: Art Bianchi on 11-07-2022 GFR/1.73 sq M.predicted among non-blacks MDRD (S/P/Bld) [Vol rate/Area] > 60 mL/Min [facility] Globulin Calc (S) [Mass/Vol] Ordered By: Art Bianchi on 11-07-2022 Globulin (S) [Mass/Vol] 2.7 g/dL [facility] [facility] ( test) IA.rapi d Ql (U)Ordered By: Art Bianchi on 11-07-2022 HCG ( test) Ql (U) Negative [facility] Hematocrit Auto (Bld) [Volum e fraction]Ordered By: Art Bianchi on 11-07-2022 Hematocrit (Bld) [Volume fraction] 43.2 % 36.0-46.0 [facility] Hemoglobin [Mass/volume] in BloodOrdered By: Art Bianchi on 11-07-2022 Hemoglobin (Bld) [Mass/Vol] 14.8 g/dL 12.0-16.0 [facility] Ketones Auto test strip (U) [Mass/Vol]Ordered By: Art Bianchi on 11-07-2022 Ketones (U) [Mass/Vol] 1+ Negative [facility] Leukocytes [#/volume] correc venkata for nucleated erythrocytes in Blood by Automated counOrdered By: Art Bianchi on 11-07-2022 WBC corrected for nucl RBC Auto (Bld) [#/Vol] 10.3 10*3/uL 4.5-13.5 [facility] Lymphocytes Auto (Bld) [#/Vo l]Ordered By: Art Bianchi on 11-07-2022 Lymphocytes (Bld) [#/Vol] 2.1 10*3/uL 1.20-4.8 [facility] Lymphocytes/100 WBC Auto (Bl d)Ordered By: Art Bianchi on 11-07-2022 Lymphocytes/100 WBC (Bld) 20.8 % . [facility] MCH Auto (RBC) [Entitic mass ]Ordered By: Art Bianchi on 11-07-2022 MCH (RBC) [Entitic mass] 28.8 pg 25.0-35.0 [facility] MCHC Auto (RBC) [Mass/Vol]Or dered By: Art Bianchi on 11-07-2022 MCHC (RBC) [Mass/Vol] 34.3 g/dL 31.0-37.0 [facility] MCV Auto (RBC) [Entitic vol] Ordered By: Art Bianchi on 11-07-2022 MCV (RBC) [Entitic vol] 84.1 fL 78-102 [facility] Monocyte distribution width [Entitic volume] in Blood by AutomatedOrdered By: Art Bianchi on 11-07-2022 Monocyte distribution width Auto (Bld) [Entitic vol] 17.07 % 0.00-20.00 [facility] Monocytes Auto (Bld) [#/Vol] Ordered By: Art Bianchi on 11-07-2022 Monocytes (Bld) [#/Vol] 0.8 10*3/uL 0.1-1.00 [facility] Monocytes/100 WBC Auto (Bld) Ordered By: Art Bianchi on 11-07-2022 Monocytes/100 WBC (Bld) 8.1 % . [facility] Neutrophils Auto (Bld) [#/Vo l]Ordered By: Art Bianchi on 11-07-2022 Neutrophils (Bld) [#/Vol] 7.1 10*3/uL 1.2-7.7 [facility] Neutrophils/100 WBC Auto (Bl d)Ordered By: Art Bianchi on 11-07-2022 Neutrophils/100 WBC (Bld) 68.9 % . [facility] Nitrite Test strip Ql (U)Ord ered By: Art Bianchi on 11-07-2022 Nitrite Ql (U) Negative Negative [facility] No Panel InformationOrdered By: Art Bianchi on 11-07-2022 0-8 [LPF] 0-8 [facility] > 60 mL/Min [facility] 43.0 U/L 22-51 [facility] 104.35 [facility] Nucleated erythrocytes [Pres ence] in Blood by Automated countOrdered By: Art Bianchi on 11-07-2022 Nucleated RBC Auto Ql (Bld) 0.3 /100{WBC} 0-0.5 [facility] Platelet mean volume Auto (B ld) [Entitic vol]Ordered By: Art Bianchi on 11-07-2022 Platelet mean volume (Bld) [Entitic vol] 8.4 fL 6.3-10.7 [facility] Platelets Auto (Bld) [#/Vol] Ordered By: Art Bianchi on 11-07-2022 Platelets (Bld) [#/Vol] 308 10*3/uL 150-450 [facility] Protein Auto test strip (U) [Mass/Vol]Ordered By: Art Bianchi on 11-07-2022 Protein (U) [Mass/Vol] Trace mg/dL Negative [facility] Protein [Mass/volume] in Ser um or PlasmaOrdered By: Art Bianchi on 11-07-2022 Protein [Mass/Vol] 7.3 g/dL 6.1-7.9 [facility] RBC Auto (Bld) [#/Vol]Ordere d By: Art Bianchi on 11-07-2022 RBC (Bld) [#/Vol] 5.14 10*6/uL 4.10-5.10 [facility] Serum or plasma alanine florez otransferase measurement without P-5'-P (enzymatic activiOrdered By: Art Bianchi on 11-07-2022 ALT No additional P-5'-P [Catalytic activity/Vol] 24 U/L 10-60 [facility] Serum or plasma albumin/glob ulin mass ratioOrdered By: Art Bianchi on 11-07-2022 Albumin/Globulin [Mass ratio] 1.7 {ratio} [facility] Serum or plasma alkaline justin sphatase measurement (enzymatic activity/volume)Ordered By: Art Bianchi on 11-07-2022 ALP [Catalytic activity/Vol] 60 U/L 32-92 [facility] Serum or plasma anion gap de terminationOrdered By: Art Bianchi on 11-07-2022 Anion gap [Moles/Vol] 12.2 mmol/L 6.0-15.0 [facility] Serum or plasma aspartate am inotransferase measurement (enzymatic activity/volume)Ordered By: Art Bianchi on 11-07-2022 AST [Catalytic activity/Vol] 25 U/L 10-42 [facility] Serum or plasma calcium tammy urement (mass/volume)Ordered By: Art Bianchi on 11-07-2022 Calcium [Mass/Vol] 9.6 mg/dL 8.2-10.2 [facility] Serum or plasma chloride judy surement (moles/volume)Ordered By: Art Bianchi on 11-07-2022 Chloride [Moles/Vol] 98 mmol/L 95-114 [facility] Serum or plasma creatinine m easurement with calculation of estimated glomerular filtrOrdered By: Art Bianchi on 11-07-2022 Creatinine and Glomerular filtration rate.predicted panel (S/P/Bld) 0.84 mg/dL 0.44-1.03 [facility] Serum or plasma glucose tammy urement (mass/volume)Ordered By: Art Bianchi on 11-07-2022 Glucose [Mass/Vol] 106 mg/dL 70-100 [facility] Serum or plasma potassium me asurement (moles/volume)Ordered By: Art Bianchi on 11-07-2022 Potassium [Moles/Vol] 3.2 mmol/L 3.5-5.1 [facility] Serum or plasma sodium measu rement (moles/volume)Ordered By: Art Bianchi on 11-07-2022 Sodium [Moles/Vol] 132 mmol/L 136-146 [facility] Serum or plasma total biliru bin measurement (mass/volume)Ordered By: Art Bianchi on 11-07-2022 Bilirubin [Mass/Vol] 0.8 mg/dL 0.3-1.2 [facility] Serum or plasma total carbon dioxide measurement (moles/volume)Ordered By: Art Bianchi on 11-07-2022 CO2 [Moles/Vol] 25.0 mmol/L 22.0-30.0 [facility] Serum or plasma urea nitroge n measurement (mass/volume)Ordered By: Art Bianchi on 11-07-2022 Urea nitrogen [Mass/Vol] 6 mg/dL 08-20 [facility] Specific gravity Auto test s trip (U) [Rel density]Ordered By: Art Bianchi on 11-07-2022 Specific gravity (U) [Rel density] 1.014 1.001-1.03 0 [facility] Squamous epithelial cells de tection in urine sediment by light microscopyOrdered By: Art Bianchi on 11-07-2022 Epithelial cells.squamous LM Ql (Urine sed) 5-9 [HPF] 0-2 [facility] Urine bacteria detection by automated methodOrdered By: Art Bianchi on 11-07-2022 Bacteria Auto Ql (U) None seen None Seen [facility] Urine clarity by refractomet ry automatedOrdered By: Art Bianchi on 11-07-2022 Clarity Refractometry automated (U) Clear Clear [facility] Urine glucose measurement by automated test strip (mass/volume)Ordered By: Art Bianchi on 11-07-2022 Glucose Auto test strip (U) [Mass/Vol] Normal mg/dL Normal [facility] Urine hemoglobin detection b y automated test stripOrdered By: Art Bianchi on 11-07-2022 Hemoglobin Auto test strip Ql (U) Negative Negative [facility] Urine leukocyte esterase det ection by automated test stripOrdered By: Art Bianchi on 11-07-2022 Leukocyte esterase Auto test strip Ql (U) Negative Negative [facility] Urobilinogen Auto test strip (U) [Mass/Vol]Ordered By: Art Bianchi on 11-07-2022 Urobilinogen (U) [Mass/Vol] Normal mg/dL Normal [facility] WBC Auto (Bld) [#/Vol]Ordere d By: Art Bianchi on 11-07-2022 WBC (Bld) [#/Vol] 10.3 10*3/uL 4.5-13.5 [facility] pH Auto test strip (U)Ordere d By: Art Bianchi on 11-07-2022 pH (U) 8.5 [pH] 5.0-9.0 [facility] Urine culture routineOrdered By: Colten Fry on 11-04-2022 Bacteria identified Cx Nom (U) 2 Days [facility] Albumin [Mass/volume] in Ser um or PlasmaOrdered By: Colten Fry on 11-02-2022 Albumin [Mass/Vol] 4.8 g/dL 3.2-5.5 [facility] Amphetamine Screen Ql (U)Ord ered By: Colten Fry on 11-02-2022 Amphetamines Ql (U) Negative Negative [facility] Automated erythrocytes count in urine sediment (number/area)Ordered By: Colten Fry on 11-02-2022 RBC Auto (Urine sed) [#/Area] 20-49 [HPF] 0-4 [facility] Automated leukocytes count i n urine sediment (number/area)Ordered By: Colten Fry on 11-02-2022 WBC Auto (Urine sed) [#/Area] 5-9 [HPF] 0-4 [facility] Barbiturates [Presence] in U rineOrdered By: Colten Fry on 11-02-2022 Barbiturates Ql (U) Negative Negative [facility] Basophils Auto (Bld) [#/Vol] Ordered By: Colten Fry on 11-02-2022 Basophils (Bld) [#/Vol] 0.1 10*3/uL 0.0-0.1 [facility] Basophils/100 WBC Auto (Bld) Ordered By: Colten Fry on 11-02-2022 Basophils/100 WBC (Bld) 0.5 % . [facility] Benzodiazepines [Presence] i n UrineOrdered By: Colten Fry on 11-02-2022 Benzodiazepines Ql (U) Negative Negative [facility] Bilirubin Test strip Ql (U)O rdered By: Colten Fry on 11-02-2022 Bilirubin Ql (U) Negative Negative [facility] Cannabinoids [Presence] in U rine by Screen methodOrdered By: Colten Fry on 11-02-2022 Cannabinoids Screen Ql (U) Positive Negative [facility] Color Auto (U)Ordered By: Vida Fry on 11-02-2022 Color (U) Yellow Yellow [facility] Eosinophils Auto (Bld) [#/Vo l]Ordered By: Colten Fry on 11-02-2022 Eosinophils (Bld) [#/Vol] 0.3 10*3/uL 0.0-0.7 [facility] Eosinophils/100 WBC Auto (Bl d)Ordered By: Colten Fry on 11-02-2022 Eosinophils/100 WBC (Bld) 2.1 % . [facility] Erythrocyte distribution wid th Auto (RBC) [Ratio]Ordered By: Colten Fry on 11-02-2022 Erythrocyte distribution width (RBC) [Ratio] 13.7 % 11.9-15.3 [facility] Estimated glomerular filtrat ion rate (GFR) non- AmericanOrdered By: Colten Fry on 11-02-2022 GFR/1.73 sq M.predicted among non-blacks MDRD (S/P/Bld) [Vol rate/Area] > 60 mL/Min [facility] Globulin Calc (S) [Mass/Vol] Ordered By: Colten Fry on 11-02-2022 Globulin (S) [Mass/Vol] 3.1 g/dL [facility] HCG ( test) IA.rapi d Ql (U)Ordered By: Colten Fry on 11-02-2022 HCG ( test) Ql (U) Negative [facility] Hematocrit Auto (Bld) [Volum e fraction]Ordered By: Colten Fry on 11-02-2022 Hematocrit (Bld) [Volume fraction] 45.3 % 36.0-46.0 [facility] Hemoglobin [Mass/volume] in BloodOrdered By: Colten Fyr on 11-02-2022 Hemoglobin (Bld) [Mass/Vol] 15.4 g/dL 12.0-16.0 [facility] Ketones Auto test strip (U) [Mass/Vol]Ordered By: Colten Fry on 11-02-2022 Ketones (U) [Mass/Vol] 3+ Negative [facility] Leukocytes [#/volume] correc venkata for nucleated erythrocytes in Blood by Automated counOrdered By: Colten Fry on 11-02-2022 WBC corrected for nucl RBC Auto (Bld) [#/Vol] 11.7 10*3/uL 4.5-13.5 [facility] Lymphocytes Auto (Bld) [#/Vo l]Ordered By: Colten Fry on 11-02-2022 Lymphocytes (Bld) [#/Vol] 2.3 10*3/uL 1.20-4.8 [facility] Lymphocytes/100 WBC Auto (Bl d)Ordered By: Colten Fry on 11-02-2022 Lymphocytes/100 WBC (Bld) 19.6 % . [facility] MCH Auto (RBC) [Entitic mass ]Ordered By: Colten Fry on 11-02-2022 MCH (RBC) [Entitic mass] 28.4 pg 25.0-35.0 [facility] MCHC Auto (RBC) [Mass/Vol]Or dered By: Colten Fry on 11-02-2022 MCHC (RBC) [Mass/Vol] 34.0 g/dL 31.0-37.0 [facility] MCV Auto (RBC) [Entitic vol] Ordered By: Colten Fry on 11-02-2022 MCV (RBC) [Entitic vol] 83.3 fL 78-102 [facility] Monocytes Auto (Bld) [#/Vol] Ordered By: Colten Fry on 11-02-2022 Monocytes (Bld) [#/Vol] 1.0 10*3/uL 0.1-1.00 [facility] Monocytes/100 WBC Auto (Bld) Ordered By: Colten Fry on 11-02-2022 Monocytes/100 WBC (Bld) 8.5 % . [facility] Neutrophils Auto (Bld) [#/Vo l]Ordered By: Colten Fry on 11-02-2022 Neutrophils (Bld) [#/Vol] 8.1 10*3/uL 1.2-7.7 [facility] Neutrophils/100 WBC Auto (Bl d)Ordered By: Colten Fry on 11-02-2022 Neutrophils/100 WBC (Bld) 69.3 % . [facility] Nitrite Test strip Ql (U)Ord ered By: Colten Fry on 11-02-2022 Nitrite Ql (U) Negative Negative [facility] No Panel InformationOrdered By: Colten Fry on 11-02-2022 9-19 [LPF] 0-8 [facility] Negative Negative [facility] > 60 mL/Min [facility] 100.26 [facility] No Panel InformationOrdered By: Robert Bolanos on 11-02-2022 2.6 mg/dL 1.6-2.6 [facility] Nucleated erythrocytes [Pres ence] in Blood by Automated countOrdered By: Colten Fry on 11-02-2022 Nucleated RBC Auto Ql (Bld) 0.1 /100{WBC} 0-0.5 [facility] Phencyclidine Screen Ql (U)O rdered By: Colten Fry on 11-02-2022 Phencyclidine Ql (U) Negative Negative [facility] Platelet mean volume Auto (B ld) [Entitic vol]Ordered By: Colten Fry on 11-02-2022 Platelet mean volume (Bld) [Entitic vol] 7.9 fL 6.3-10.7 [facility] Platelets Auto (Bld) [#/Vol] Ordered By: Colten Fry on 11-02-2022 Platelets (Bld) [#/Vol] 292 10*3/uL 150-450 [facility] Protein Auto test strip (U) [Mass/Vol]Ordered By: Colten Fry on 11-02-2022 Protein (U) [Mass/Vol] 30 mg/dL Negative [facility] Protein [Mass/volume] in Ser um or PlasmaOrdered By: Colten Fry on 11-02-2022 Protein [Mass/Vol] 7.9 g/dL 6.1-7.9 [facility] RBC Auto (Bld) [#/Vol]Ordere d By: Colten Fry on 11-02-2022 RBC (Bld) [#/Vol] 5.43 10*6/uL 4.10-5.10 [facility] Serum or plasma alanine florez otransferase measurement without P-5'-P (enzymatic activiOrdered By: Cloten Fry on 11-02-2022 ALT No additional P-5'-P [Catalytic activity/Vol] 20 U/L 10-60 [facility] Serum or plasma albumin/glob ulin mass ratioOrdered By: Colten Fry on 11-02-2022 Albumin/Globulin [Mass ratio] 1.5 {ratio} [facility] Serum or plasma alkaline justin sphatase measurement (enzymatic activity/volume)Ordered By: Colten Fry on 11-02-2022 ALP [Catalytic activity/Vol] 65 U/L 32-92 [facility] Serum or plasma anion gap de terminationOrdered By: Colten Fry on 11-02-2022 Anion gap [Moles/Vol] 14.6 mmol/L 6.0-15.0 [facility] Serum or plasma aspartate am inotransferase measurement (enzymatic activity/volume)Ordered By: Colten Fry on 11-02-2022 AST [Catalytic activity/Vol] 19 U/L 10-42 [facility] Serum or plasma calcium tammy urement (mass/volume)Ordered By: Colten Fry on 11-02-2022 Calcium [Mass/Vol] 9.6 mg/dL 8.2-10.2 [facility] Serum or plasma chloride judy surement (moles/volume)Ordered By: Colten Fry on 11-02-2022 Chloride [Moles/Vol] 95 mmol/L 95-114 [facility] Serum or plasma creatinine m easurement with calculation of estimated glomerular filtrOrdered By: Colten Fry on 11-02-2022 Creatinine and Glomerular filtration rate.predicted panel (S/P/Bld) 0.88 mg/dL 0.44-1.03 [facility] Serum or plasma glucose tmamy urement (mass/volume)Ordered By: Colten Fry on 11-02-2022 Glucose [Mass/Vol] 95 mg/dL 70-100 [facility] Serum or plasma potassium me asurement (moles/volume)Ordered By: Colten Fry on 11-02-2022 Potassium [Moles/Vol] 2.9 mmol/L 3.5-5.1 [facility] Serum or plasma sodium measu rement (moles/volume)Ordered By: Colten Fry on 11-02-2022 Sodium [Moles/Vol] 134 mmol/L 136-146 [facility] Serum or plasma total biliru bin measurement (mass/volume)Ordered By: Colten Fry on 11-02-2022 Bilirubin [Mass/Vol] 1.8 mg/dL 0.3-1.2 [facility] Serum or plasma total carbon dioxide measurement (moles/volume)Ordered By: Colten Fry on 11-02-2022 CO2 [Moles/Vol] 27.3 mmol/L 22.0-30.0 [facility] Serum or plasma urea nitroge n measurement (mass/volume)Ordered By: Colten Fry on 11-02-2022 Urea nitrogen [Mass/Vol] 24 mg/dL 9-23 [facility] Specific gravity Auto test s trip (U) [Rel density]Ordered By: Colten Fry on 11-02-2022 Specific gravity (U) [Rel density] 1.025 1.001-1.03 0 [facility] Squamous epithelial cells de tection in urine sediment by light microscopyOrdered By: Colten Fry on 11-02-2022 Epithelial cells.squamous LM Ql (Urine sed) 10-19 [HPF] 0-2 [facility] Urine bacteria detection by automated methodOrdered By: Colten Fry on 11-02-2022 Bacteria Auto Ql (U) None seen None Seen [facility] Urine clarity by refractomet ry automatedOrdered By: Colten Fry on 11-02-2022 Clarity Refractometry automated (U) Cloudy Clear [facility] Urine cocaine detectionOrder ed By: Colten Fry on 11-02-2022 Cocaine Ql (U) Negative Negative [facility] Urine culture routineOrdered By: Colten Fry on 11-02-2022 Bacteria identified Cx Nom (U) 2 Days [facility] Urine culture routineOrdered By: Art Bianchi on 11-02-2022 Bacteria identified Cx Nom (U) 2 Days [facility] Urine glucose measurement by automated test strip (mass/volume)Ordered By: Colten Fry on 11-02-2022 Glucose Auto test strip (U) [Mass/Vol] Normal mg/dL Normal [facility] Urine hemoglobin detection b y automated test stripOrdered By: Colten Fry on 11-02-2022 Hemoglobin Auto test strip Ql (U) 3+ Negative [facility] Urine leukocyte esterase det ection by automated test stripOrdered By: Colten Fry on 11-02-2022 Leukocyte esterase Auto test strip Ql (U) 2+ Negative [facility] Urobilinogen Auto test strip (U) [Mass/Vol]Ordered By: Colten Fry on 11-02-2022 Urobilinogen (U) [Mass/Vol] Normal mg/dL Normal [facility] WBC Auto (Bld) [#/Vol]Ordere d By: Colten Fry on 11-02-2022 WBC (Bld) [#/Vol] 11.7 10*3/uL 4.5-13.5 [facility] pH Auto test strip (U)Ordere d By: Colten Fry on 11-02-2022 pH (U) 7.0 [pH] 5.0-9.0 [facility] Albumin [Mass/volume] in Ser um or PlasmaOrdered By: Art Bianchi on 10-31-2022 Albumin [Mass/Vol] 5.1 g/dL 3.2-5.5 [facility] Automated erythrocytes count in urine sediment (number/area)Ordered By: Art Bianchi on 10-31-2022 RBC Auto (Urine sed) [#/Area] Innumerable [HPF] 0-4 [facility] Automated leukocytes count i n urine sediment (number/area)Ordered By: Art Bianchi on 10-31-2022 WBC Auto (Urine sed) [#/Area] 10-19 [HPF] 0-4 [facility] Basophils Auto (Bld) [#/Vol] Ordered By: Art Bianchi on 10-31-2022 Basophils (Bld) [#/Vol] 0.0 10*3/uL 0.0-0.1 [facility] Basophils/100 WBC Auto (Bld) Ordered By: Art Bianchi on 10-31-2022 Basophils/100 WBC (Bld) 0.3 % . [facility] Bilirubin Test strip Ql (U)O rdered By: Art Bianchi on 10-31-2022 Bilirubin Ql (U) Negative Negative [facility] Color Auto (U)Ordered By: Adrian Bianchi on 10-31-2022 Color (U) Red Yellow [facility] Eosinophils Auto (Bld) [#/Vo l]Ordered By: Art Bianchi on 10-31-2022 Eosinophils (Bld) [#/Vol] 0.1 10*3/uL 0.0-0.7 [facility] Eosinophils/100 WBC Auto (Bl d)Ordered By: Art Bianchi on 10-31-2022 Eosinophils/100 WBC (Bld) 1.0 % . [facility] Erythrocyte distribution wid th Auto (RBC) [Ratio]Ordered By: Art Bianchi on 10-31-2022 Erythrocyte distribution width (RBC) [Ratio] 14.0 % 11.9-15.3 [facility] Estimated glomerular filtrat ion rate (GFR) non- AmericanOrdered By: Art Bianchi on 10-31-2022 GFR/1.73 sq M.predicted among non-blacks MDRD (S/P/Bld) [Vol rate/Area] > 60 mL/Min [facility] Globulin Calc (S) [Mass/Vol] Ordered By: Art Bianchi on 10-31-2022 Globulin (S) [Mass/Vol] 3.1 g/dL [facility] HCG ( test) IA.rapi d Ql (U)Ordered By: Art Bianchi on 10-31-2022 HCG ( test) Ql (U) Negative [facility] Hematocrit Auto (Bld) [Volum e fraction]Ordered By: Art Bianchi on 10-31-2022 Hematocrit (Bld) [Volume fraction] 45.0 % 36.0-46.0 [facility] Hemoglobin [Mass/volume] in BloodOrdered By: Art Bianchi on 10-31-2022 Hemoglobin (Bld) [Mass/Vol] 15.2 g/dL 12.0-16.0 [facility] Ketones Auto test strip (U) [Mass/Vol]Ordered By: Art Bianchi on 10-31-2022 Ketones (U) [Mass/Vol] 3+ Negative [facility] Leukocytes [#/volume] correc venkata for nucleated erythrocytes in Blood by Automated counOrdered By: Art Bianchi on 10-31-2022 WBC corrected for nucl RBC Auto (Bld) [#/Vol] 14.0 10*3/uL 4.5-13.5 [facility] Lymphocytes Auto (Bld) [#/Vo l]Ordered By: Art Bianchi on 10-31-2022 Lymphocytes (Bld) [#/Vol] 2.2 10*3/uL 1.20-4.8 [facility] Lymphocytes/100 WBC Auto (Bl d)Ordered By: Art Bianchi on 10-31-2022 Lymphocytes/100 WBC (Bld) 15.5 % . [facility] MCH Auto (RBC) [Entitic mass ]Ordered By: Art Bianchi on 10-31-2022 MCH (RBC) [Entitic mass] 28.6 pg 25.0-35.0 [facility] MCHC Auto (RBC) [Mass/Vol]Or dered By: Atr Bianchi on 10-31-2022 MCHC (RBC) [Mass/Vol] 33.7 g/dL 31.0-37.0 [facility] MCV Auto (RBC) [Entitic vol] Ordered By: Art Bianchi on 10-31-2022 MCV (RBC) [Entitic vol] 85.0 fL 78-102 [facility] Monocyte distribution width [Entitic volume] in Blood by AutomatedOrdered By: Art Bianchi on 10-31-2022 Monocyte distribution width Auto (Bld) [Entitic vol] 14.69 % 0.00-20.00 [facility] Monocytes Auto (Bld) [#/Vol] Ordered By: Art Bianchi on 10-31-2022 Monocytes (Bld) [#/Vol] 1.3 10*3/uL 0.1-1.00 [facility] Monocytes/100 WBC Auto (Bld) Ordered By: Art Bianchi on 10-31-2022 Monocytes/100 WBC (Bld) 9.1 % . [facility] Neutrophils Auto (Bld) [#/Vo l]Ordered By: Art Bianchi on 10-31-2022 Neutrophils (Bld) [#/Vol] 10.4 10*3/uL 1.2-7.7 [facility] Neutrophils/100 WBC Auto (Bl d)Ordered By: Art Bianchi on 10-31-2022 Neutrophils/100 WBC (Bld) 74.1 % . [facility] Nitrite Test strip Ql (U)Ord ered By: Art Bianchi on 10-31-2022 Nitrite Ql (U) Negative Negative [facility] No Panel InformationOrdered By: Art Bianchi on 10-31-2022 0-8 [LPF] 0-8 [facility] > 60 mL/Min [facility] 29.0 U/L 22-51 [facility] 102.97 [facility] Nucleated erythrocytes [Pres ence] in Blood by Automated countOrdered By: Art Bianchi on 10-31-2022 Nucleated RBC Auto Ql (Bld) 0.1 /100{WBC} 0-0.5 [facility] Platelet mean volume Auto (B ld) [Entitic vol]Ordered By: Art Bianchi on 10-31-2022 Platelet mean volume (Bld) [Entitic vol] 8.3 fL 6.3-10.7 [facility] Platelets Auto (Bld) [#/Vol] Ordered By: Art Bianchi on 10-31-2022 Platelets (Bld) [#/Vol] 337 10*3/uL 150-450 [facility] Protein Auto test strip (U) [Mass/Vol]Ordered By: Art Bianchi on 10-31-2022 Protein (U) [Mass/Vol] 100 mg/dL Negative [facility] Protein [Mass/volume] in Ser um or PlasmaOrdered By: Art Bianchi on 10-31-2022 Protein [Mass/Vol] 8.2 g/dL 6.1-7.9 [facility] RBC Auto (Bld) [#/Vol]Ordere d By: Art Bianchi on 10-31-2022 RBC (Bld) [#/Vol] 5.29 10*6/uL 4.10-5.10 [facility] Serum or plasma alanine florez otransferase measurement without P-5'-P (enzymatic activiOrdered By: Art Bianchi on 10-31-2022 ALT No additional P-5'-P [Catalytic activity/Vol] 25 U/L 10-60 [facility] Serum or plasma albumin/glob ulin mass ratioOrdered By: Art Bianchi on 10-31-2022 Albumin/Globulin [Mass ratio] 1.6 {ratio} [facility] Serum or plasma alkaline justin sphatase measurement (enzymatic activity/volume)Ordered By: Art Bianchi on 10-31-2022 ALP [Catalytic activity/Vol] 62 U/L 32-92 [facility] Serum or plasma anion gap de terminationOrdered By: Art Bianchi on 10-31-2022 Anion gap [Moles/Vol] 16.8 mmol/L 6.0-15.0 [facility] Serum or plasma aspartate am inotransferase measurement (enzymatic activity/volume)Ordered By: Art Bianchi on 10-31-2022 AST [Catalytic activity/Vol] 25 U/L 10-42 [facility] Serum or plasma calcium tammy urement (mass/volume)Ordered By: Art Bianchi on 10-31-2022 Calcium [Mass/Vol] 9.9 mg/dL 8.2-10.2 [facility] Serum or plasma chloride judy surement (moles/volume)Ordered By: Art Bianchi on 10-31-2022 Chloride [Moles/Vol] 96 mmol/L 95-114 [facility] Serum or plasma creatinine m easurement with calculation of estimated glomerular filtrOrdered By: Art Bianchi on 10-31-2022 Creatinine and Glomerular filtration rate.predicted panel (S/P/Bld) 0.89 mg/dL 0.44-1.03 [facility] Serum or plasma glucose tammy urement (mass/volume)Ordered By: Art Bianchi on 10-31-2022 Glucose [Mass/Vol] 120 mg/dL 70-100 [facility] Serum or plasma potassium me asurement (moles/volume)Ordered By: Art Bianchi on 10-31-2022 Potassium [Moles/Vol] 3.2 mmol/L 3.5-5.1 [facility] Serum or plasma sodium measu rement (moles/volume)Ordered By: Art Bianchi on 10-31-2022 Sodium [Moles/Vol] 132 mmol/L 136-146 [facility] Serum or plasma total biliru bin measurement (mass/volume)Ordered By: Art Bianchi on 10-31-2022 Bilirubin [Mass/Vol] 1.7 mg/dL 0.3-1.2 [facility] Serum or plasma total carbon dioxide measurement (moles/volume)Ordered By: Art Bianchi on 10-31-2022 CO2 [Moles/Vol] 22.4 mmol/L 22.0-30.0 [facility] Serum or plasma urea nitroge n measurement (mass/volume)Ordered By: Art Bianchi on 10-31-2022 Urea nitrogen [Mass/Vol] 28 mg/dL 9-23 [facility] Specific gravity Auto test s trip (U) [Rel density]Ordered By: Art Bianchi on 10-31-2022 Specific gravity (U) [Rel density] 1.030 1.001-1.03 0 [facility] Squamous epithelial cells de tection in urine sediment by light microscopyOrdered By: Art Bianchi on 10-31-2022 Epithelial cells.squamous LM Ql (Urine sed) 10-19 [HPF] 0-2 [facility] Urine bacteria detection by automated methodOrdered By: Art Bianchi on 10-31-2022 Bacteria Auto Ql (U) None seen None Seen [facility] Urine clarity by refractomet ry automatedOrdered By: Art Bianchi on 10-31-2022 Clarity Refractometry automated (U) Cloudy Clear [facility] Urine culture routineOrdered By: Art Bianchi on 10-31-2022 Bacteria identified Cx Nom (U) 2 Days [facility] Urine glucose measurement by automated test strip (mass/volume)Ordered By: Art Bianchi on 10-31-2022 Glucose Auto test strip (U) [Mass/Vol] Normal mg/dL Normal [facility] Urine hemoglobin detection b y automated test stripOrdered By: Art Bianchi on 10-31-2022 Hemoglobin Auto test strip Ql (U) 3+ Negative [facility] Urine leukocyte esterase det ection by automated test stripOrdered By: Art Bianchi on 10-31-2022 Leukocyte esterase Auto test strip Ql (U) 2+ Negative [facility] Urobilinogen Auto test strip (U) [Mass/Vol]Ordered By: Art Bianchi on 10-31-2022 Urobilinogen (U) [Mass/Vol] Normal mg/dL Normal [facility] WBC Auto (Bld) [#/Vol]Ordere d By: Art Bianchi on 10-31-2022 WBC (Bld) [#/Vol] 14.0 10*3/uL 4.5-13.5 [facility] pH Auto test strip (U)Ordere d By: Art Bianchi on 10-31-2022 pH (U) 6.5 [pH] 5.0-9.0 [facility] Basophils Auto (Bld) [#/Vol] Ordered By: Ravi Arguello on 10-29-2022 Basophils (Bld) [#/Vol] 0.0 10*3/uL 0.0-0.1 [facility] Basophils/100 WBC Auto (Bld) Ordered By: Ravi Arguello on 10-29-2022 Basophils/100 WBC (Bld) 0.3 % . [facility] Body fluid albumin measureme nt (mass/volume)Ordered By: Ravi Arguello on 10-29-2022 Albumin (Body fld) [Mass/Vol] 5.2 g/dL 3.2-5.5 [facility] Creatinine and Glomerular fi ltration rate.predicted panel (S/P/Bld)Ordered By: Ravi Arguello on 10-29-2022 Creatinine [Mass/Vol] 0.85 mg/dL 0.44-1.03 [facility] Direct bilirubin measurement Ordered By: Ravi Arguello on 10-29-2022 Bilirubin.direct [Mass/Vol] 0.1 mg/dL 0.0-0.4 [facility] Eosinophils Auto (Bld) [#/Vo l]Ordered By: Ravi Arguello on 10-29-2022 Eosinophils (Bld) [#/Vol] 0.0 10*3/uL 0.0-0.7 [facility] Eosinophils/100 WBC Auto (Bl d)Ordered By: Ravi Arguello on 10-29-2022 Eosinophils/100 WBC (Bld) 0.1 % . [facility] Erythrocyte distribution wid th Auto (RBC) [Ratio]Ordered By: Ravi Arguello on 10-29-2022 Erythrocyte distribution width (RBC) [Ratio] 14.4 % 11.9-15.3 [facility] Estimated glomerular filtrat ion rate (GFR) non- AmericanOrdered By: Ravi Arguello on 10-29-2022 GFR/1.73 sq M.predicted among non-blacks MDRD (S/P/Bld) [Vol rate/Area] > 60 mL/Min [facility] Globulin Calc (S) [Mass/Vol] Ordered By: Ravi Arguello on 10-29-2022 Globulin (S) [Mass/Vol] 3.7 g/dL [facility] Hematocrit Auto (Bld) [Volum e fraction]Ordered By: Ravi Arguello on 10-29-2022 Hematocrit (Bld) [Volume fraction] 42.9 % 36.0-46.0 [facility] Hemoglobin [Mass/volume] in BloodOrdered By: Ravi Arguello on 10-29-2022 Hemoglobin (Bld) [Mass/Vol] 14.3 g/dL 12.0-16.0 [facility] Laboratory - Chemistry and C hemistry - challengeOrdered By: Ravi Arguello on 10-29-2022 Lipase [Catalytic activity/Vol] 25.0 U/L 22-51 [facility] Leukocytes [#/volume] correc venkata for nucleated erythrocytes in Blood by Automated counOrdered By: Ravi Arguello on 10-29-2022 WBC corrected for nucl RBC Auto (Bld) [#/Vol] 13.7 10*3/uL 4.5-13.5 [facility] Lymphocytes Auto (Bld) [#/Vo l]Ordered By: Ravi Arguello on 10-29-2022 Lymphocytes (Bld) [#/Vol] 1.7 10*3/uL 1.20-4.8 [facility] Lymphocytes/100 WBC Auto (Bl d)Ordered By: Ravi Arguello on 10-29-2022 Lymphocytes/100 WBC (Bld) 12.4 % . [facility] MCH Auto (RBC) [Entitic mass ]Ordered By: Ravi Arguello on 10-29-2022 MCH (RBC) [Entitic mass] 28.4 pg 25.0-35.0 [facility] MCHC Auto (RBC) [Mass/Vol]Or dered By: Ravi Arguello on 10-29-2022 MCHC (RBC) [Mass/Vol] 33.3 g/dL 31.0-37.0 [facility] MCV Auto (RBC) [Entitic vol] Ordered By: Ravi Arguello on 10-29-2022 MCV (RBC) [Entitic vol] 85.1 fL 78-102 [facility] Monocyte distribution width [Entitic volume] in Blood by AutomatedOrdered By: Ravi Arguello on 10-29-2022 Monocyte distribution width Auto (Bld) [Entitic vol] 16.57 % 0.00-20.00 [facility] Monocytes Auto (Bld) [#/Vol] Ordered By: Ravi Arguello on 10-29-2022 Monocytes (Bld) [#/Vol] 0.9 10*3/uL 0.1-1.00 [facility] Monocytes/100 WBC Auto (Bld) Ordered By: Ravi Arguello on 10-29-2022 Monocytes/100 WBC (Bld) 6.8 % . [facility] Neutrophils Auto (Bld) [#/Vo l]Ordered By: Ravi Arguello on 10-29-2022 Neutrophils (Bld) [#/Vol] 11.0 10*3/uL 1.2-7.7 [facility] Neutrophils/100 WBC Auto (Bl d)Ordered By: Ravi Arguello on 10-29-2022 Neutrophils/100 WBC (Bld) 80.4 % . [facility] No Panel InformationOrdered By: Ravi Arguello on 10-29-2022 Estimated GFR () > 60 mL/Min [facility] Comment on above: GFR estimated refere nce range: According to KDOQI guidelines, <60 ml/min/1.73m2 is sufficient to diagnose a patient with chronic kidney disease. Pharmacy Creatinine Clearance (Chem 105.83 [facility] > 60 mL/Min [facility] 25.0 U/L 22-51 [facility] 105.83 [facility] Nucleated erythrocytes [Pres ence] in Blood by Automated countOrdered By: Ravi Arguello on 10-29-2022 Nucleated RBC Auto Ql (Bld) 0.0 /100{WBC} 0-0.5 [facility] Platelet mean volume Auto (B ld) [Entitic vol]Ordered By: Ravi Arguello on 10-29-2022 Platelet mean volume (Bld) [Entitic vol] 8.4 fL 6.3-10.7 [facility] Platelets Auto (Bld) [#/Vol] Ordered By: Ravi Arguello on 10-29-2022 Platelets (Bld) [#/Vol] 355 10*3/uL 150-450 [facility] Protein [Mass/volume] in Ser um or PlasmaOrdered By: Ravi Arguello on 10-29-2022 Protein [Mass/Vol] 8.9 g/dL 6.1-7.9 [facility] RBC Auto (Bld) [#/Vol]Ordere d By: Ravi Arguello on 10-29-2022 RBC (Bld) [#/Vol] 5.04 10*6/uL 4.10-5.10 [facility] Serum or plasma alanine florez otransferase measurement without P-5'-P (enzymatic activiOrdered By: Ravi Arguello on 10-29-2022 ALT No additional P-5'-P [Catalytic activity/Vol] 24 U/L 10-60 [facility] Serum or plasma albumin/glob ulin mass ratioOrdered By: Ravi Arguello on 10-29-2022 Albumin/Globulin [Mass ratio] 1.4 {ratio} [facility] Serum or plasma alkaline justin sphatase measurement (enzymatic activity/volume)Ordered By: Ravi Arguello on 10-29-2022 ALP [Catalytic activity/Vol] 68 U/L 32-92 [facility] Serum or plasma anion gap de terminationOrdered By: Ravi Arguello on 10-29-2022 Anion gap [Moles/Vol] 19.9 mmol/L 6.0-15.0 [facility] Serum or plasma aspartate am inotransferase measurement (enzymatic activity/volume)Ordered By: Ravi Arguello on 10-29-2022 AST [Catalytic activity/Vol] 20 U/L 10-42 [facility] Serum or plasma calcium tammy urement (mass/volume)Ordered By: Ravi Arguello on 10-29-2022 Calcium [Mass/Vol] 10.4 mg/dL 8.2-10.2 [facility] Serum or plasma chloride judy surement (moles/volume)Ordered By: Ravi Arguello on 10-29-2022 Chloride [Moles/Vol] 100 mmol/L 95-114 [facility] Serum or plasma creatinine m easurement with calculation of estimated glomerular filtrOrdered By: Ravi Arguello on 10-29-2022 Creatinine and Glomerular filtration rate.predicted panel (S/P/Bld) 0.85 mg/dL 0.44-1.03 [facility] Serum or plasma glucose tammy urement (mass/volume)Ordered By: Ravi Arguello on 10-29-2022 Glucose [Mass/Vol] 114 mg/dL 70-100 [facility] Comment on above: ADA recommended refe rence rangeRandom Glucose Reference Range is dependent on time and content of last meal. Glucose of more than 200 mg/dL in a nonstressed, ambulatory subject supports the diagnosis of Diabetes Mellitus. Serum or plasma non-glucuron idated bilirubin measurement (mass/volume)Ordered By: Ravi Arguello on 10-29-2022 Bilirubin.indirect [Mass/Vol] 1.1 mg/dL [facility] Serum or plasma potassium me asurement (moles/volume)Ordered By: Ravi Arguello on 10-29-2022 Potassium [Moles/Vol] 3.3 mmol/L 3.5-5.1 [facility] Serum or plasma sodium measu rement (moles/volume)Ordered By: Ravi Arguello on 10-29-2022 Sodium [Moles/Vol] 137 mmol/L 136-146 [facility] Serum or plasma total biliru bin measurement (mass/volume)Ordered By: Ravi Argeullo on 10-29-2022 Bilirubin [Mass/Vol] 1.2 mg/dL 0.3-1.2 [facility] Serum or plasma total carbon dioxide measurement (moles/volume)Ordered By: Ravi Arguello on 10-29-2022 CO2 [Moles/Vol] 20.4 mmol/L 22.0-30.0 [facility] Serum or plasma urea nitroge n measurement (mass/volume)Ordered By: Ravi Arguello on 10-29-2022 Urea nitrogen [Mass/Vol] 21 mg/dL 9-23 [facility] WBC Auto (Bld) [#/Vol]Ordere d By: Ravi Arguello on 10-29-2022 WBC (Bld) [#/Vol] 13.7 10*3/uL 4.5-13.5 [facility] Basophils Auto (Bld) [#/Vol] Ordered By: Modesta Chand on 08-27-2022 Basophils (Bld) [#/Vol] 0.0 10*3/uL 0.0-0.1 [facility] Basophils/100 WBC Auto (Bld) Ordered By: Modesta Chand on 08-27-2022 Basophils/100 WBC (Bld) 0.3 % . [facility] Body fluid albumin measureme nt (mass/volume)Ordered By: Modesta Chand on 08-27-2022 Albumin (Body fld) [Mass/Vol] 4.7 g/dL 3.2-5.5 [facility] Creatinine and Glomerular fi ltration rate.predicted panel (S/P/Bld)Ordered By: Modesta Chand on 08-27-2022 Creatinine [Mass/Vol] 0.90 mg/dL 0.44-1.03 [facility] Eosinophils Auto (Bld) [#/Vo l]Ordered By: Modesta Chand on 08-27-2022 Eosinophils (Bld) [#/Vol] 0.3 10*3/uL 0.0-0.7 [facility] Eosinophils/100 WBC Auto (Bl d)Ordered By: Modesta Chand on 08-27-2022 Eosinophils/100 WBC (Bld) 2.2 % . [facility] Erythrocyte distribution wid th Auto (RBC) [Ratio]Ordered By: Modesta Chand on 08-27-2022 Erythrocyte distribution width (RBC) [Ratio] 14.0 % 11.9-15.3 [facility] Estimated glomerular filtrat ion rate (GFR) non- AmericanOrdered By: Modesta Chand on 08-27-2022 GFR/1.73 sq M.predicted among non-blacks MDRD (S/P/Bld) [Vol rate/Area] > 60 mL/Min [facility] Globulin Calc (S) [Mass/Vol] Ordered By: Modesta Chand on 08-27-2022 Globulin (S) [Mass/Vol] 2.5 g/dL [facility] Hematocrit Auto (Bld) [Volum e fraction]Ordered By: Modesta Chand on 08-27-2022 Hematocrit (Bld) [Volume fraction] 46.5 % 36.0-46.0 [facility] Hemoglobin [Mass/volume] in BloodOrdered By: Modesta Chand on 08-27-2022 Hemoglobin (Bld) [Mass/Vol] 15.6 g/dL 12.0-16.0 [facility] Laboratory - Chemistry and C hemistry - challengeOrdered By: Modesta Chand on 08-27-2022 Lipase [Catalytic activity/Vol] 27.0 U/L 22-51 [facility] Laboratory - Hematology and Cell countsOrdered By: Modesta Chand on 08-27-2022 Nucleated RBC/100 WBC (Bld) [Ratio] 0.1 % 0-0.5 [facility] Leukocytes [#/volume] in Blo od by Automated countOrdered By: Modesta Chand on 08-27-2022 WBC (Bld) [#/Vol] 13.4 10*3/uL 4.5-13.5 [facility] Lymphocytes Auto (Bld) [#/Vo l]Ordered By: Modesta Chand on 08-27-2022 Lymphocytes (Bld) [#/Vol] 3.1 10*3/uL 1.20-4.8 [facility] Lymphocytes/100 WBC Auto (Bl d)Ordered By: Modesta Chand on 08-27-2022 Lymphocytes/100 WBC (Bld) 22.9 % . [facility] MCH Auto (RBC) [Entitic mass ]Ordered By: Modesta Chand on 08-27-2022 MCH (RBC) [Entitic mass] 28.4 pg 25.0-35.0 [facility] MCHC Auto (RBC) [Mass/Vol]Or dered By: Modesta Chand on 08-27-2022 MCHC (RBC) [Mass/Vol] 33.5 g/dL 31.0-37.0 [facility] MCV Auto (RBC) [Entitic vol] Ordered By: Modesta Chand on 08-27-2022 MCV (RBC) [Entitic vol] 84.8 fL 78-102 [facility] Monocytes Auto (Bld) [#/Vol] Ordered By: Modesta Chand on 08-27-2022 Monocytes (Bld) [#/Vol] 1.2 10*3/uL 0.1-1.00 [facility] Monocytes/100 WBC Auto (Bld) Ordered By: Modesta Chand on 08-27-2022 Monocytes/100 WBC (Bld) 9.1 % . [facility] Neutrophils Auto (Bld) [#/Vo l]Ordered By: Modesta Chand on 08-27-2022 Neutrophils (Bld) [#/Vol] 8.8 10*3/uL 1.2-7.7 [facility] Neutrophils/100 WBC Auto (Bl d)Ordered By: Modesta Chand on 08-27-2022 Neutrophils/100 WBC (Bld) 65.5 % . [facility] No Panel InformationOrdered By: Modesta Chand on 08-27-2022 Estimated GFR () > 60 mL/Min [facility] Comment on above: GFR estimated refere nce range: According to KDOQI guidelines, <60 ml/min/1.73m2 is sufficient to diagnose a patient with chronic kidney disease. Pharmacy Creatinine Clearance (Chem N/A [facility] 13.4 10*3/uL 4.5-13.5 [facility] 0.1 % 0-0.5 [facility] > 60 mL/Min [facility] 27.0 U/L 22-51 [facility] N/A [facility] Platelet mean volume Auto (B ld) [Entitic vol]Ordered By: Modesta Chand on 08-27-2022 Platelet mean volume (Bld) [Entitic vol] 8.9 fL 6.3-10.7 [facility] Platelets Auto (Bld) [#/Vol] Ordered By: Modesta Chand on 08-27-2022 Platelets (Bld) [#/Vol] 373 10*3/uL 150-450 [facility] Protein [Mass/volume] in Ser um or PlasmaOrdered By: Modesta Chand on 08-27-2022 Protein [Mass/Vol] 7.2 g/dL 6.1-7.9 [facility] RBC Auto (Bld) [#/Vol]Ordere d By: Modesta Chand on 08-27-2022 RBC (Bld) [#/Vol] 5.49 10*6/uL 4.10-5.10 [facility] Serum or plasma alanine florez otransferase measurement without P-5'-P (enzymatic activiOrdered By: Modesta Chand on 08-27-2022 ALT No additional P-5'-P [Catalytic activity/Vol] 20 U/L 10-60 [facility] Serum or plasma albumin/glob ulin mass ratioOrdered By: Modesta Chand on 08-27-2022 Albumin/Globulin [Mass ratio] 1.9 {ratio} [facility] Serum or plasma alkaline justin sphatase measurement (enzymatic activity/volume)Ordered By: Modesta Chand on 08-27-2022 ALP [Catalytic activity/Vol] 63 U/L 32-92 [facility] Serum or plasma amylase tammy urement (enzymatic activity/volume)Ordered By: Modesta Chand on 08-27-2022 Amylase [Catalytic activity/Vol] 25 U/L 28-100 [facility] Serum or plasma anion gap de terminationOrdered By: Modesta Chand on 08-27-2022 Anion gap [Moles/Vol] 22.5 mmol/L 6.0-15.0 [facility] Serum or plasma aspartate am inotransferase measurement (enzymatic activity/volume)Ordered By: Modesta Chand on 08-27-2022 AST [Catalytic activity/Vol] 18 U/L 10-42 [facility] Serum or plasma calcium tammy urement (mass/volume)Ordered By: Modesta Chand on 08-27-2022 Calcium [Mass/Vol] 10.1 mg/dL 8.2-10.2 [facility] Serum or plasma chloride judy surement (moles/volume)Ordered By: Modesta Chand on 08-27-2022 Chloride [Moles/Vol] 89 mmol/L 95-114 [facility] Serum or plasma creatinine m easurement with calculation of estimated glomerular filtrOrdered By: Modesta Chand on 08-27-2022 Creatinine and Glomerular filtration rate.predicted panel (S/P/Bld) 0.90 mg/dL 0.44-1.03 [facility] Serum or plasma glucose tammy urement (mass/volume)Ordered By: Modesta Chand on 08-27-2022 Glucose [Mass/Vol] 76 mg/dL 70-100 [facility] Comment on above: ADA recommended refe rence rangeRandom Glucose Reference Range is dependent on time and content of last meal. Glucose of more than 200 mg/dL in a nonstressed, ambulatory subject supports the diagnosis of Diabetes Mellitus. Serum or plasma potassium me asurement (moles/volume)Ordered By: Modesta Chand on 08-27-2022 Potassium [Moles/Vol] 3.7 mmol/L 3.5-5.1 [facility] Serum or plasma sodium measu rement (moles/volume)Ordered By: Modesta Chand on 08-27-2022 Sodium [Moles/Vol] 131 mmol/L 136-146 [facility] Serum or plasma total biliru bin measurement (mass/volume)Ordered By: Modesta Chand on 08-27-2022 Bilirubin [Mass/Vol] 1.6 mg/dL 0.3-1.2 [facility] Comment on above: Samples from patient s who have taken Naproxen have shown spurious elevation in Total Bilirubin levels. A metabolite of Naproxen, O-desmethylnaproxen, has been shown to interfere with the Solomon method for measuring Total Bilirubin. Serum or plasma total carbon dioxide measurement (moles/volume)Ordered By: Modesta Chand on 08-27-2022 CO2 [Moles/Vol] 23.2 mmol/L 22.0-30.0 [facility] Serum or plasma urea nitroge n measurement (mass/volume)Ordered By: Modesta Chand on 08-27-2022 Urea nitrogen [Mass/Vol] 15 mg/dL 9-23 [facility] Basophils Auto (Bld) [#/Vol] Ordered By: Gregorio Carey on 08-22-2022 Basophils (Bld) [#/Vol] 0.0 10*3/uL 0.0-0.1 [facility] Basophils/100 WBC Auto (Bld) Ordered By: Gregorio Carey on 08-22-2022 Basophils/100 WBC (Bld) 0.3 % . [facility] Blood hemoglobin measurement (mass/volume)Ordered By: Gregorio Carey on 08-22-2022 Hemoglobin (Bld) [Mass/Vol] 13.1 g/dL 12.0-16.0 [facility] Blood leukocytes automated c ount (number/volume)Ordered By: Gregorio Carey on 08-22-2022 WBC (Bld) [#/Vol] 9.7 10*3/uL 4.5-13.5 [facility] Creatinine and Glomerular fi ltration rate.predicted panel (S/P/Bld)Ordered By: Gregorio Carey on 08-22-2022 Creatinine [Mass/Vol] 0.75 mg/dL 0.44-1.03 [facility] Eosinophils Auto (Bld) [#/Vo l]Ordered By: Gregorio Carey on 08-22-2022 Eosinophils (Bld) [#/Vol] 0.1 10*3/uL 0.0-0.7 [facility] Eosinophils/100 WBC Auto (Bl d)Ordered By: Gregorio Carey on 08-22-2022 Eosinophils/100 WBC (Bld) 1.0 % . [facility] Erythrocyte distribution wid th Auto (RBC) [Ratio]Ordered By: Gregorio Carey on 08-22-2022 Erythrocyte distribution width (RBC) [Ratio] 14.1 % 11.9-15.3 [facility] Estimated glomerular filtrat ion rate (GFR) non- AmericanOrdered By: Gregorio Carey on 08-22-2022 GFR/1.73 sq M.predicted among non-blacks MDRD (S/P/Bld) [Vol rate/Area] > 60 mL/Min [facility] Hematocrit Auto (Bld) [Volum e fraction]Ordered By: Gregorio Carey on 08-22-2022 Hematocrit (Bld) [Volume fraction] 39.6 % 36.0-46.0 [facility] Laboratory - Hematology and Cell countsOrdered By: Gregorio Carey on 08-22-2022 Nucleated RBC/100 WBC (Bld) [Ratio] 0.0 % 0-0.5 [facility] Lymphocytes Auto (Bld) [#/Vo l]Ordered By: Gregorio Carey on 08-22-2022 Lymphocytes (Bld) [#/Vol] 2.0 10*3/uL 1.20-4.8 [facility] Lymphocytes/100 WBC Auto (Bl d)Ordered By: Gregorio Carey on 08-22-2022 Lymphocytes/100 WBC (Bld) 20.5 % . [facility] MCH Auto (RBC) [Entitic mass ]Ordered By: Gregorio Carey on 08-22-2022 MCH (RBC) [Entitic mass] 28.0 pg 25.0-35.0 [facility] MCHC Auto (RBC) [Mass/Vol]Or dered By: Gregorio Carey on 08-22-2022 MCHC (RBC) [Mass/Vol] 33.2 g/dL 31.0-37.0 [facility] MCV Auto (RBC) [Entitic vol] Ordered By: Gregorio Carey on 08-22-2022 MCV (RBC) [Entitic vol] 84.5 fL 78-102 [facility] Monocytes Auto (Bld) [#/Vol] Ordered By: Gregorio Carey on 08-22-2022 Monocytes (Bld) [#/Vol] 0.8 10*3/uL 0.1-1.00 [facility] Monocytes/100 WBC Auto (Bld) Ordered By: Gregorio Carey on 08-22-2022 Monocytes/100 WBC (Bld) 8.0 % . [facility] Neutrophils Auto (Bld) [#/Vo l]Ordered By: Gregorio Carey on 08-22-2022 Neutrophils (Bld) [#/Vol] 6.8 10*3/uL 1.2-7.7 [facility] Neutrophils/100 WBC Auto (Bl d)Ordered By: Gregorio Carey on 08-22-2022 Neutrophils/100 WBC (Bld) 70.2 % . [facility] No Panel InformationOrdered By: Gregorio Carey on 08-22-2022 Estimated GFR () > 60 mL/Min [facility] Comment on above: GFR estimated refere nce range: According to KDOQI guidelines, <60 ml/min/1.73m2 is sufficient to diagnose a patient with chronic kidney disease. Pharmacy Creatinine Clearance (Chem 117.26 [facility] 9.7 10*3/uL 4.5-13.5 [facility] 0.0 % 0-0.5 [facility] > 60 mL/Min [facility] 117.26 [facility] Platelet mean volume Auto (B ld) [Entitic vol]Ordered By: Gregorio Carey on 08-22-2022 Platelet mean volume (Bld) [Entitic vol] 8.6 fL 6.3-10.7 [facility] Platelets Auto (Bld) [#/Vol] Ordered By: Gregorio Carey on 08-22-2022 Platelets (Bld) [#/Vol] 246 10*3/uL 150-450 [facility] RBC Auto (Bld) [#/Vol]Ordere d By: Gregorio Carey on 08-22-2022 RBC (Bld) [#/Vol] 4.69 10*6/uL 4.10-5.10 [facility] Serum nuclear antibody titer Ordered By: Gregorio Carey on 08-22-2022 Nuclear Ab (S) [Titer] Negative . [facility] Comment on above: Negative <1:80 Borde rline 1:80 Positive >1:80ICAP nomenclature: [id number] more information about Hep-2 cell patterns useANApatterns.org, the official website for theInternational Consensus on Antinuclear Antibody (EDMOND)Patterns (ICAP).Performed at: [facility] [id number] Director: James Nelson PhD, Phone: [phone] Serum or plasma anion gap de terminationOrdered By: Gregorio Carey on 08-22-2022 Anion gap [Moles/Vol] 17.0 mmol/L 6.0-15.0 [facility] Serum or plasma beta choriog onadotropin measurement (units/volume)Ordered By: Gregorio Carey on 08-22-2022 HCG.beta subunit Qn m[IU]/mL [facility] Comment on above: Approximate Approxim ate hCG [...] on 08-22-2022 Calcium [Mass/Vol] 9.4 mg/dL 8.2-10.2 [facility] Serum or plasma chloride judy surement (moles/volume)Ordered By: Gregorio Carey on 08-22-2022 Chloride [Moles/Vol] 99 mmol/L 95-114 [facility] Serum or plasma creatinine m easurement with calculation of estimated glomerular filtrOrdered By: Gregorio Carey on 08-22-2022 Creatinine and Glomerular filtration rate.predicted panel (S/P/Bld) 0.75 mg/dL 0.44-1.03 [facility] Serum or plasma glucose tammy urement (mass/volume)Ordered By: Gregorio Carey on 08-22-2022 Glucose [Mass/Vol] 90 mg/dL 70-100 [facility] Comment on above: ADA recommended refe [...] on 08-22-2022 Potassium [Moles/Vol] 3.8 mmol/L 3.5-5.1 [facility] Serum or plasma sodium measu rement (moles/volume)Ordered By: Gregorio Carey on 08-22-2022 Sodium [Moles/Vol] 134 mmol/L 136-146 [facility] Serum or plasma total carbon dioxide measurement (moles/volume)Ordered By: Gregorio Carey on 08-22-2022 CO2 [Moles/Vol] 21.8 mmol/L 22.0-30.0 [facility] Serum or plasma urea nitroge n measurement (mass/volume)Ordered By: Gregorio Carey on 08-22-2022 Urea nitrogen [Mass/Vol] 7 mg/dL 08-20 [facility] Urine culture routineOrdered By: Gregorio Carey on 08-22-2022 Bacteria identified Cx Nom (U) 2 Days [facility] Urine culture routineOrdered By: Gilson Castro on 08-22-2022 Bacteria identified Cx Nom (U) 2 Days [facility] Urine culture routineOrdered By: Colten Fry on 08-21-2022 Bacteria identified Cx Nom (U) 2 Days [facility] Amphetamine Screen Ql (U)Ord ered By: Gilson Castro on 08-20-2022 Amphetamines Ql (U) Negative Negative [facility] Automated erythrocytes count in urine sediment (number/area)Ordered By: Gilson Castro on 08-20-2022 RBC Auto (Urine sed) [#/Area] None seen [HPF] 0-4 [facility] Automated leukocytes count i n urine sediment (number/area)Ordered By: Gilson Castro on 08-20-2022 WBC Auto (Urine sed) [#/Area] 1-2 [HPF] 0-4 [facility] Barbiturates [Presence] in U rineOrdered By: Gilson Castro on 08-20-2022 Barbiturates Ql (U) Positive Negative [facility] Basophils Auto (Bld) [#/Vol] Ordered By: Gilson Castro on 08-20-2022 Basophils (Bld) [#/Vol] 0.0 10*3/uL 0.0-0.1 [facility] Basophils/100 WBC Auto (Bld) Ordered By: Gilson Castro on 08-20-2022 Basophils/100 WBC (Bld) 0.4 % . [facility] Benzodiazepines [Presence] i n UrineOrdered By: Gilson Castro on 08-20-2022 Benzodiazepines Ql (U) Negative Negative [facility] Bilirubin Test strip Ql (U)O rdered By: Gilson Castro on 08-20-2022 Bilirubin Ql (U) Negative Negative [facility] Blood anisocytosis detection Ordered By: Gilson Castro on 08-20-2022 Anisocytosis Ql (Bld) Slight Fir [facility] Blood hemoglobin measurement (mass/volume)Ordered By: Gilson Castro on 08-20-2022 Hemoglobin (Bld) [Mass/Vol] 12.1 g/dL 12.0-16.0 [facility] Blood leukocytes automated c ount (number/volume)Ordered By: Gilson Castro on 08-20-2022 WBC (Bld) [#/Vol] 10.9 10*3/uL 4.5-13.5 [facility] COVID-19 Positive/NegativeOr dered By: Ravi Arguello on 08-20-2022 SARS-CoV-2 (COVID-19) N gene JANAK+probe Ql (Resp) Negative Negative [facility] Comment on above: Testing for SARS-CoV -2 by RT-PCR This test was developed and its performance characteristics determined by [employer] ([employer] and validated at the [facility]. This test has not been [...] and its performance characteristics determined by [employer] ([employer] and validated at the [facility]. This test has not been [...] (COVID-19) Ag IA.rapid Ql (Resp) Negative Negative [facility] Comment on above: This is a duplicate [employer] SARS Antigen (JOSE A) result to be used for statistical tracking purpose only. Cannabinoids [Presence] in U rine by Screen methodOrdered By: Gilson Castro on 08-20-2022 Cannabinoids Screen Ql (U) Positive Negative [facility] Comment on above: These are [...] Castro on 08-20-2022 Color (U) Yellow Yellow [facility] Creatinine and Glomerular fi ltration rate.predicted panel (S/P/Bld)Ordered By: Gilson Castro on 08-20-2022 Creatinine [Mass/Vol] 0.65 mg/dL 0.44-1.03 [facility] Eosinophils Auto (Bld) [#/Vo l]Ordered By: Gilson Castro on 08-20-2022 Eosinophils (Bld) [#/Vol] 0.0 10*3/uL 0.0-0.7 [facility] Eosinophils/100 WBC Auto (Bl d)Ordered By: Gilson Castro on 08-20-2022 Eosinophils/100 WBC (Bld) 0.3 % . [facility] Erythrocyte distribution wid th Auto (RBC) [Ratio]Ordered By: Gilson Castro on 08-20-2022 Erythrocyte distribution width (RBC) [Ratio] 13.9 % 11.9-15.3 [facility] Estimated glomerular filtrat ion rate (GFR) non- AmericanOrdered By: Gilson Castro on 08-20-2022 GFR/1.73 sq M.predicted among non-blacks MDRD (S/P/Bld) [Vol rate/Area] > 60 mL/Min [facility] Hematocrit Auto (Bld) [Volum e fraction]Ordered By: Gilson Castro on 08-20-2022 Hematocrit (Bld) [Volume fraction] 36.8 % 36.0-46.0 [facility] Ketones Auto test strip (U) [Mass/Vol]Ordered By: Gilson Castro on 08-20-2022 Ketones (U) [Mass/Vol] 2+ Negative [facility] Laboratory - Chemistry and C hemistry - challengeOrdered By: Gilson Castro on 08-20-2022 Magnesium [Mass/Vol] 1.9 mg/dL 1.6-2.6 [facility] Laboratory - Drug toxicology Ordered By: Gilson Castro on 08-20-2022 Opiates Ql (U) Negative Negative [facility] Laboratory - Hematology and Cell countsOrdered By: Gilson Castro on 08-20-2022 Nucleated RBC/100 WBC (Bld) [Ratio] 0.0 % 0-0.5 [facility] Laboratory - UrinalysisOrder ed By: Gilson Castro on 08-20-2022 Hyaline casts LM Ql (Urine sed) None seen [LPF] 0-8 [facility] Lymphocytes Auto (Bld) [#/Vo l]Ordered By: Gilson Castro on 08-20-2022 Lymphocytes (Bld) [#/Vol] 1.3 10*3/uL 1.20-4.8 [facility] Lymphocytes/100 WBC Auto (Bl d)Ordered By: Gilson Castro on 08-20-2022 Lymphocytes/100 WBC (Bld) 11.5 % . [facility] MCH Auto (RBC) [Entitic mass ]Ordered By: Gilson Castro on 08-20-2022 MCH (RBC) [Entitic mass] 28.1 pg 25.0-35.0 [facility] MCHC Auto (RBC) [Mass/Vol]Or dered By: Gilson Castro on 08-20-2022 MCHC (RBC) [Mass/Vol] 32.9 g/dL 31.0-37.0 [facility] MCV Auto (RBC) [Entitic vol] Ordered By: Gilson Castro on 08-20-2022 MCV (RBC) [Entitic vol] 85.5 fL 78-102 [facility] Monocytes Auto (Bld) [#/Vol] Ordered By: Gilson Castro on 08-20-2022 Monocytes (Bld) [#/Vol] 0.4 10*3/uL 0.1-1.00 [facility] Monocytes/100 WBC Auto (Bld) Ordered By: Gilson Castro on 08-20-2022 Monocytes/100 WBC (Bld) 3.7 % . [facility] Neutrophils Auto (Bld) [#/Vo l]Ordered By: Gilson Castro on 08-20-2022 Neutrophils (Bld) [#/Vol] 9.2 10*3/uL 1.2-7.7 [facility] Neutrophils/100 WBC Auto (Bl d)Ordered By: Gilson Castro on 08-20-2022 Neutrophils/100 WBC (Bld) 84.1 % . [facility] Nitrite Test strip Ql (U)Ord ered By: Gilson Castro on 08-20-2022 Nitrite Ql (U) Negative Negative [facility] No Panel InformationOrdered By: Gilson Castro on 08-20-2022 None seen [LPF] 0-8 [facility] Negative Negative [facility] Estimated GFR () > 60 mL/Min [facility] Comment on above: GFR estimated refere nce range: According to KDOQI guidelines, <60 ml/min/1.73m2 is sufficient to diagnose a patient with chronic kidney disease. Pharmacy Creatinine Clearance (Chem 136.96 [facility] Platelet Estimate Normal Normal [facility] Platelet Morphology Comment Normal Normal [facility] Normal Normal [facility] 1.9 mg/dL 1.6-2.6 [facility] No Panel InformationOrdered By: Ravi Arguello on 08-20-2022 SARS Antigen (LFIA) [facility] Phencyclidine Screen Ql (U)O rdered By: Gilson Castro on 08-20-2022 Phencyclidine Ql (U) Negative Negative [facility] Platelet mean volume Auto (B ld) [Entitic vol]Ordered By: Gilson Castro on 08-20-2022 Platelet mean volume (Bld) [Entitic vol] 8.6 fL 6.3-10.7 [facility] Platelets Auto (Bld) [#/Vol] Ordered By: Gilson Castro on 08-20-2022 Platelets (Bld) [#/Vol] 145 10*3/uL 150-450 [facility] Comment on above: Delta: 314 on Protein Auto test strip (U) [Mass/Vol]Ordered By: Gilson Castro on 08-20-2022 Protein (U) [Mass/Vol] Negative Negative [facility] RBC Auto (Bld) [#/Vol]Ordere d By: Gilson Castro on 08-20-2022 RBC (Bld) [#/Vol] 4.31 10*6/uL 4.10-5.10 [facility] RBC morphologyOrdered By: Pierce Castro on 08-20-2022 RBC morphology finding Nom (Bld) N/A [facility] Serum or plasma anion gap de terminationOrdered By: Gilson Castro on 08-20-2022 Anion gap [Moles/Vol] 15.2 mmol/L 6.0-15.0 [facility] Serum or plasma calcium tammy urement (mass/volume)Ordered By: Gilson Castro on 08-20-2022 Calcium [Mass/Vol] 8.6 mg/dL 8.2-10.2 [facility] Serum or plasma chloride judy surement (moles/volume)Ordered By: Gilson Castro on 08-20-2022 Chloride [Moles/Vol] 101 mmol/L 95-114 [facility] Serum or plasma glucose tammy urement (mass/volume)Ordered By: Gilson Castro on 08-20-2022 Glucose [Mass/Vol] 96 mg/dL 70-100 [facility] Comment on above: ADA recommended refe rence range Random Glucose Reference Range is dependent on time and content of last meal. Glucose of more than 200 mg/dL in a nonstressed, ambulatory subject supports the diagnosis of Diabetes Mellitus. Serum or plasma potassium me asurement (moles/volume)Ordered By: Gilson Castro on 08-20-2022 Potassium [Moles/Vol] 3.1 mmol/L 3.5-5.1 [facility] Serum or plasma sodium measu rement (moles/volume)Ordered By: Gilson Castro on 08-20-2022 Sodium [Moles/Vol] 135 mmol/L 136-146 [facility] Serum or plasma total carbon dioxide measurement (moles/volume)Ordered By: Gilson Castro on 08-20-2022 CO2 [Moles/Vol] 21.9 mmol/L 22.0-30.0 [facility] Serum or plasma urea nitroge n measurement (mass/volume)Ordered By: Gilson Castro on 08-20-2022 Urea nitrogen [Mass/Vol] 11 mg/dL 08-20 [facility] Specific gravity Auto test s trip (U) [Rel density]Ordered By: Gilson Castro on 08-20-2022 Specific gravity (U) [Rel density] 1.008 1.001-1.03 0 [facility] Squamous epithelial cells de tection in urine sediment by light microscopyOrdered By: Gilson Castro on 08-20-2022 Epithelial cells.squamous LM Ql (Urine sed) 1-2 [HPF] 0-2 [facility] Urine bacteria detection by automated methodOrdered By: Gilson Castro on 08-20-2022 Bacteria Auto Ql (U) None seen None Seen [facility] Urine clarity by refractomet ry automatedOrdered By: Gilson Castro on 08-20-2022 Clarity Refractometry automated (U) Clear Clear [facility] Urine cocaine detectionOrder ed By: Gilson Castro on 08-20-2022 Cocaine Ql (U) Negative Negative [facility] Urine glucose measurement by automated test strip (mass/volume)Ordered By: Gilson Castro on 08-20-2022 Glucose Auto test strip (U) [Mass/Vol] Normal mg/dL Normal [facility] Urine hemoglobin detection b y automated test stripOrdered By: Gilson Castro on 08-20-2022 Hemoglobin Auto test strip Ql (U) Negative Negative [facility] Urine leukocyte esterase det ection by automated test stripOrdered By: Gilson Castro on 08-20-2022 Leukocyte esterase Auto test strip Ql (U) 1+ Negative [facility] Urobilinogen Auto test strip (U) [Mass/Vol]Ordered By: Gilson Castro on 08-20-2022 Urobilinogen (U) [Mass/Vol] Normal mg/dL Normal [facility] pH Auto test strip (U)Ordere d By: Gilson Castro on 08-20-2022 pH (U) 7.0 [pH] 5.0-9.0 [facility] Automated erythrocytes count in urine sediment (number/area)Ordered By: Gilson Castro on 08-19-2022 RBC Auto (Urine sed) [#/Area] 3-4 [HPF] 0-4 [facility] Automated erythrocytes count in urine sediment (number/area)Ordered By: Colten Fry on 08-19-2022 RBC Auto (Urine sed) [#/Area] None seen [HPF] 0-4 [facility] Automated leukocytes count i n urine sediment (number/area)Ordered By: Gilson Castro on 08-19-2022 WBC Auto (Urine sed) [#/Area] 20-49 [HPF] 0-4 [facility] Automated leukocytes count i n urine sediment (number/area)Ordered By: Colten Fry on 08-19-2022 WBC Auto (Urine sed) [#/Area] 5-9 [HPF] 0-4 [facility] Automated urine hyaline cast s count (number/volume)Ordered By: Gilson Castro on 08-19-2022 Hyaline casts Auto (U) [#/Vol] None seen [LPF] 0-1 [facility] Basophils Auto (Bld) [#/Vol] Ordered By: Gilson Castro on 08-19-2022 Basophils (Bld) [#/Vol] 0.0 10*3/uL 0.0-0.1 [facility] Basophils Auto (Bld) [#/Vol] Ordered By: Colten Fry on 08-19-2022 Basophils (Bld) [#/Vol] 0.0 10*3/uL 0.0-0.1 [facility] Basophils/100 WBC Auto (Bld) Ordered By: Gilson Castro on 08-19-2022 Basophils/100 WBC (Bld) 0.2 % . [facility] Basophils/100 WBC Auto (Bld) Ordered By: Colten Fry on 08-19-2022 Basophils/100 WBC (Bld) 0.4 % . [facility] Bilirubin Test strip Ql (U)O rdered By: Gilson Castro on 08-19-2022 Bilirubin Ql (U) Negative Negative [facility] Bilirubin Test strip Ql (U)O rdered By: Colten Fry on 08-19-2022 Bilirubin Ql (U) Negative Negative [facility] Blood hemoglobin measurement (mass/volume)Ordered By: Gilson Castro on 08-19-2022 Hemoglobin (Bld) [Mass/Vol] 13.2 g/dL 12.0-16.0 [facility] Blood hemoglobin measurement (mass/volume)Ordered By: Colten Fry on 08-19-2022 Hemoglobin (Bld) [Mass/Vol] 12.8 g/dL 12.0-16.0 [facility] Blood leukocytes automated c ount (number/volume)Ordered By: Gilson Castro on 08-19-2022 WBC (Bld) [#/Vol] 15.5 10*3/uL 4.5-13.5 [facility] Blood leukocytes automated c ount (number/volume)Ordered By: Colten Fry on 08-19-2022 WBC (Bld) [#/Vol] 13.5 10*3/uL 4.5-13.5 [facility] Body fluid albumin measureme nt (mass/volume)Ordered By: Gilson Castro on 08-19-2022 Albumin (Body fld) [Mass/Vol] 4.0 g/dL 3.2-5.5 [facility] Body fluid albumin measureme nt (mass/volume)Ordered By: Colten Fry on 08-19-2022 Albumin (Body fld) [Mass/Vol] 4.5 g/dL 3.2-5.5 [facility] COVID-19 SOFIAOrdered By: Pierce Castro on 08-19-2022 SARS-CoV+SARS-CoV-2 (COVID-19) Ag IA.rapid Ql (Resp) Negative Negative [facility] Comment on above: This is a duplicate [employer] SARS Antigen (JOSE A) result to be used for statistical tracking purpose only. Casts typing in urine sedime nt by light microscopyOrdered By: Gilson Castro on 08-19-2022 Casts LM Nom (Urine sed) None seen [LPF] None Seen [facility] Casts typing in urine sedime nt by light microscopyOrdered By: Colten Fry on 08-19-2022 Casts LM Nom (Urine sed) N/A [facility] Color Auto (U)Ordered By: Pierce Castro on 08-19-2022 Color (U) Yellow Yellow [facility] Color Auto (U)Ordered By: Vida Fry on 08-19-2022 Color (U) Yellow Yellow [facility] Creatinine and Glomerular fi ltration rate.predicted panel (S/P/Bld)Ordered By: Gilson Castro on 08-19-2022 Creatinine [Mass/Vol] 0.73 mg/dL 0.44-1.03 [facility] Creatinine and Glomerular fi ltration rate.predicted panel (S/P/Bld)Ordered By: Colten Fry on 08-19-2022 Creatinine [Mass/Vol] 0.82 mg/dL 0.44-1.03 [facility] Eosinophils Auto (Bld) [#/Vo l]Ordered By: Gilson Castro on 08-19-2022 Eosinophils (Bld) [#/Vol] 0.0 10*3/uL 0.0-0.7 [facility] Eosinophils Auto (Bld) [#/Vo l]Ordered By: Colten Fry on 08-19-2022 Eosinophils (Bld) [#/Vol] 0.0 10*3/uL 0.0-0.7 [facility] Eosinophils/100 WBC Auto (Bl d)Ordered By: Gilson Castro on 08-19-2022 Eosinophils/100 WBC (Bld) 0.2 % . [facility] Eosinophils/100 WBC Auto (Bl d)Ordered By: Colten Fry on 08-19-2022 Eosinophils/100 WBC (Bld) 0.0 % . [facility] Erythrocyte distribution wid th Auto (RBC) [Ratio]Ordered By: Gilson Castro on 08-19-2022 Erythrocyte distribution width (RBC) [Ratio] 14.4 % 11.9-15.3 [facility] Erythrocyte distribution wid th Auto (RBC) [Ratio]Ordered By: Colten Fry on 08-19-2022 Erythrocyte distribution width (RBC) [Ratio] 14.3 % 11.9-15.3 [facility] Estimated glomerular filtrat ion rate (GFR) non- AmericanOrdered By: Gilson Castro on 08-19-2022 GFR/1.73 sq M.predicted among non-blacks MDRD (S/P/Bld) [Vol rate/Area] > 60 mL/Min [facility] Estimated glomerular filtrat ion rate (GFR) non- AmericanOrdered By: Colten Fry on 08-19-2022 GFR/1.73 sq M.predicted among non-blacks MDRD (S/P/Bld) [Vol rate/Area] > 60 mL/Min [facility] Globulin Calc (S) [Mass/Vol] Ordered By: Gilson Castro on 08-19-2022 Globulin (S) [Mass/Vol] 2.7 g/dL [facility] Globulin Calc (S) [Mass/Vol] Ordered By: Colten Fry on 08-19-2022 Globulin (S) [Mass/Vol] 3.0 g/dL [facility] HCG ( test) IA.rapi d Ql (U)Ordered By: Gilson Castro on 08-19-2022 HCG ( test) Ql (U) Negative [facility] HCG ( test) IA.rapi d Ql (U)Ordered By: Colten Fry on 08-19-2022 HCG ( test) Ql (U) Negative [facility] Hematocrit Auto (Bld) [Volum e fraction]Ordered By: Gilson Castro on 08-19-2022 Hematocrit (Bld) [Volume fraction] 40.6 % 36.0-46.0 [facility] Hematocrit Auto (Bld) [Volum e fraction]Ordered By: Colten Fry on 08-19-2022 Hematocrit (Bld) [Volume fraction] 39.5 % 36.0-46.0 [facility] Ketones Auto test strip (U) [Mass/Vol]Ordered By: Gilson Castro on 08-19-2022 Ketones (U) [Mass/Vol] 4+ Negative [facility] Ketones Auto test strip (U) [Mass/Vol]Ordered By: Colten Fry on 08-19-2022 Ketones (U) [Mass/Vol] 3+ Negative [facility] Laboratory - Chemistry and C hemistry - challengeOrdered By: Gilson Castro on 08-19-2022 Lipase [Catalytic activity/Vol] 24.0 U/L [facility] Magnesium [Mass/Vol] 2.0 mg/dL 1.6-2.6 [facility] Laboratory - Hematology and Cell countsOrdered By: Gilson Castro on 08-19-2022 Nucleated RBC/100 WBC (Bld) [Ratio] 0.1 % 0-0.5 [facility] Laboratory - Hematology and Cell countsOrdered By: Colten Fry on 08-19-2022 Nucleated RBC/100 WBC (Bld) [Ratio] 0.0 % 0-0.5 [facility] Laboratory - UrinalysisOrder ed By: Colten Fry on 08-19-2022 Hyaline casts LM Ql (Urine sed) None seen [LPF] 0-8 [facility] Lymphocytes Auto (Bld) [#/Vo l]Ordered By: Gilson Castro on 08-19-2022 Lymphocytes (Bld) [#/Vol] 2.3 10*3/uL 1.20-4.8 [facility] Lymphocytes Auto (Bld) [#/Vo l]Ordered By: Colten Fry on 08-19-2022 Lymphocytes (Bld) [#/Vol] 1.0 10*3/uL 1.20-4.8 [facility] Lymphocytes/100 WBC Auto (Bl d)Ordered By: Gilson Castro on 08-19-2022 Lymphocytes/100 WBC (Bld) 14.6 % . [facility] Lymphocytes/100 WBC Auto (Bl d)Ordered By: Colten Fry on 08-19-2022 Lymphocytes/100 WBC (Bld) 7.3 % . [facility] MCH Auto (RBC) [Entitic mass ]Ordered By: Gilson Castro on 08-19-2022 MCH (RBC) [Entitic mass] 27.9 pg 25.0-35.0 [facility] MCH Auto (RBC) [Entitic mass ]Ordered By: Colten Fry on 08-19-2022 MCH (RBC) [Entitic mass] 27.7 pg 25.0-35.0 [facility] MCHC Auto (RBC) [Mass/Vol]Or dered By: Gilson Castro on 08-19-2022 MCHC (RBC) [Mass/Vol] 32.6 g/dL 31.0-37.0 [facility] MCHC Auto (RBC) [Mass/Vol]Or dered By: Colten Fry on 08-19-2022 MCHC (RBC) [Mass/Vol] 32.3 g/dL 31.0-37.0 [facility] MCV Auto (RBC) [Entitic vol] Ordered By: Gilson Castro on 08-19-2022 MCV (RBC) [Entitic vol] 85.6 fL 78-102 [facility] MCV Auto (RBC) [Entitic vol] Ordered By: Colten Fry on 08-19-2022 MCV (RBC) [Entitic vol] 85.7 fL 78-102 [facility] Monocytes Auto (Bld) [#/Vol] Ordered By: Gilson Castro on 08-19-2022 Monocytes (Bld) [#/Vol] 1.1 10*3/uL 0.1-1.00 [facility] Monocytes Auto (Bld) [#/Vol] Ordered By: Colten Fry on 08-19-2022 Monocytes (Bld) [#/Vol] 0.3 10*3/uL 0.1-1.00 [facility] Monocytes/100 WBC Auto (Bld) Ordered By: Gilson Castro on 08-19-2022 Monocytes/100 WBC (Bld) 7.3 % . [facility] Monocytes/100 WBC Auto (Bld) Ordered By: Colten Fry on 08-19-2022 Monocytes/100 WBC (Bld) 2.1 % . [facility] Neutrophils Auto (Bld) [#/Vo l]Ordered By: Gilson Castro on 08-19-2022 Neutrophils (Bld) [#/Vol] 12.1 10*3/uL 1.2-7.7 [facility] Neutrophils Auto (Bld) [#/Vo l]Ordered By: Colten Fry on 08-19-2022 Neutrophils (Bld) [#/Vol] 12.2 10*3/uL 1.2-7.7 [facility] Neutrophils/100 WBC Auto (Bl d)Ordered By: Gilson Castro on 08-19-2022 Neutrophils/100 WBC (Bld) 77.7 % . [facility] Neutrophils/100 WBC Auto (Bl d)Ordered By: Colten Fry on 08-19-2022 Neutrophils/100 WBC (Bld) 90.2 % . [facility] Nitrite Test strip Ql (U)Ord ered By: Gilson Castro on 08-19-2022 Nitrite Ql (U) Negative Negative [facility] Nitrite Test strip Ql (U)Ord ered By: Colten Fry on 08-19-2022 Nitrite Ql (U) Negative Negative [facility] No Panel InformationOrdered By: Gilson Castro on 08-19-2022 Estimated GFR () > 60 mL/Min [facility] Comment on above: GFR estimated refere nce range: According to KDOQI guidelines, <60 ml/min/1.73m2 is sufficient to diagnose a patient with chronic kidney disease. Pharmacy Creatinine Clearance (Chem 121.95 [facility] > 60 mL/Min [facility] 2.0 mg/dL 1.6-2.6 [facility] 24.0 U/L 22-51 [facility] 121.95 [facility] 15.5 10*3/uL 4.5-13.5 [facility] 0.1 % 0-0.5 [facility] SARS Antigen (LFIA) [facility] No Panel InformationOrdered By: Colten Fry on 08-19-2022 None seen [LPF] 0-8 [facility] Estimated GFR () > 60 mL/Min [facility] Comment on above: GFR estimated refere nce range: According to KDOQI guidelines, <60 ml/min/1.73m2 is sufficient to diagnose a patient with chronic kidney disease. Pharmacy Creatinine Clearance (Chem 106.97 [facility] 13.5 10*3/uL 4.5-13.5 [facility] 0.0 % 0-0.5 [facility] > 60 mL/Min [facility] 106.97 [facility] Platelet mean volume Auto (B ld) [Entitic vol]Ordered By: Gilson Castro on 08-19-2022 Platelet mean volume (Bld) [Entitic vol] 8.8 fL 6.3-10.7 [facility] Platelet mean volume Auto (B ld) [Entitic vol]Ordered By: Colten Fry on 08-19-2022 Platelet mean volume (Bld) [Entitic vol] 8.7 fL 6.3-10.7 [facility] Platelets Auto (Bld) [#/Vol] Ordered By: Gilson Castro on 08-19-2022 Platelets (Bld) [#/Vol] 314 10*3/uL 150-450 [facility] Platelets Auto (Bld) [#/Vol] Ordered By: Colten Fry on 08-19-2022 Platelets (Bld) [#/Vol] 258 10*3/uL 150-450 [facility] Protein Auto test strip (U) [Mass/Vol]Ordered By: Gilson Castro on 08-19-2022 Protein (U) [Mass/Vol] 30 mg/dL Negative Fi [facility] Protein Auto test strip (U) [Mass/Vol]Ordered By: Colten Fry on 08-19-2022 Protein (U) [Mass/Vol] Trace mg/dL Negative [facility] Protein [Mass/volume] in Ser um or PlasmaOrdered By: Gilson Castro on 08-19-2022 Protein [Mass/Vol] 6.7 g/dL 6.1-7.9 [facility] Protein [Mass/volume] in Ser um or PlasmaOrdered By: Colten Fry on 08-19-2022 Protein [Mass/Vol] 7.5 g/dL 6.1-7.9 [facility] RBC Auto (Bld) [#/Vol]Ordere d By: Gilson Castro on 08-19-2022 RBC (Bld) [#/Vol] 4.74 10*6/uL 4.10-5.10 [facility] RBC Auto (Bld) [#/Vol]Ordere d By: Colten Fry on 08-19-2022 RBC (Bld) [#/Vol] 4.60 10*6/uL 4.10-5.10 [facility] Serum or plasma alanine florez otransferase measurement without P-5'-P (enzymatic activiOrdered By: Gilson Castro on 08-19-2022 ALT No additional P-5'-P [Catalytic activity/Vol] 17 U/L [facility] Serum or plasma alanine florez otransferase measurement without P-5'-P (enzymatic activiOrdered By: Colten Fry on 08-19-2022 ALT No additional P-5'-P [Catalytic activity/Vol] 16 U/L [facility] Serum or plasma albumin/glob ulin mass ratioOrdered By: Gilson Castro on 08-19-2022 Albumin/Globulin [Mass ratio] 1.5 {ratio} [facility] Serum or plasma albumin/glob ulin mass ratioOrdered By: Colten Fry on 08-19-2022 Albumin/Globulin [Mass ratio] 1.5 {ratio} [facility] Serum or plasma alkaline justin sphatase measurement (enzymatic activity/volume)Ordered By: Gilson Castro on 08-19-2022 ALP [Catalytic activity/Vol] 51 U/L [facility] Serum or plasma alkaline justin sphatase measurement (enzymatic activity/volume)Ordered By: Colten Fry on 08-19-2022 ALP [Catalytic activity/Vol] 59 U/L [facility] Serum or plasma anion gap de terminationOrdered By: Gilson Castro on 08-19-2022 Anion gap [Moles/Vol] 13.8 mmol/L 6.0-15.0 [facility] Serum or plasma anion gap de terminationOrdered By: Colten Fry on 08-19-2022 Anion gap [Moles/Vol] 19.5 mmol/L 6.0-15.0 [facility] Serum or plasma aspartate am inotransferase measurement (enzymatic activity/volume)Ordered By: Gilson Castro on 08-19-2022 AST [Catalytic activity/Vol] 17 U/L [facility] Serum or plasma aspartate am inotransferase measurement (enzymatic activity/volume)Ordered By: Colten Fry on 08-19-2022 AST [Catalytic activity/Vol] 20 U/L [facility] Serum or plasma calcium tammy urement (mass/volume)Ordered By: Gilson Castro on 08-19-2022 Calcium [Mass/Vol] 9.1 mg/dL 8.2-10.2 [facility] Serum or plasma calcium atmmy urement (mass/volume)Ordered By: Colten Fry on 08-19-2022 Calcium [Mass/Vol] 9.8 mg/dL 8.2-10.2 [facility] Serum or plasma chloride judy surement (moles/volume)Ordered By: Gilson Castro on 08-19-2022 Chloride [Moles/Vol] 104 mmol/L 95-114 [facility] Serum or plasma chloride judy surement (moles/volume)Ordered By: Colten Fry on 08-19-2022 Chloride [Moles/Vol] 107 mmol/L 95-114 [facility] Serum or plasma creatinine m easurement with calculation of estimated glomerular filtrOrdered By: Gilson Castro on 08-19-2022 Creatinine and Glomerular filtration rate.predicted panel (S/P/Bld) 0.73 mg/dL 0.44-1.03 [facility] Serum or plasma creatinine m easurement with calculation of estimated glomerular filtrOrdered By: Colten Fry on 08-19-2022 Creatinine and Glomerular filtration rate.predicted panel (S/P/Bld) 0.82 mg/dL 0.44-1.03 [facility] Serum or plasma glucose tammy urement (mass/volume)Ordered By: Gilson Castro on 08-19-2022 Glucose [Mass/Vol] 108 mg/dL 70-100 [facility] Comment on above: ADA recommended refe [...] on 08-19-2022 Glucose [Mass/Vol] 131 mg/dL 70-100 [facility] Comment on above: ADA recommended refe [...] on 08-19-2022 Potassium [Moles/Vol] 3.1 mmol/L 3.5-5.1 [facility] Serum or plasma potassium me asurement (moles/volume)Ordered By: Colten Fry on 08-19-2022 Potassium [Moles/Vol] 3.9 mmol/L 3.5-5.1 [facility] Serum or plasma sodium measu rement (moles/volume)Ordered By: Gilson Castro on 08-19-2022 Sodium [Moles/Vol] 138 mmol/L 136-146 [facility] Serum or plasma sodium measu rement (moles/volume)Ordered By: Colten Fry on 08-19-2022 Sodium [Moles/Vol] 142 mmol/L 136-146 [facility] Serum or plasma total biliru bin measurement (mass/volume)Ordered By: Gilson Castro on 08-19-2022 Bilirubin [Mass/Vol] 0.5 mg/dL 0.3-1.2 [facility] Serum or plasma total biliru bin measurement (mass/volume)Ordered By: Colten Fry on 08-19-2022 Bilirubin [Mass/Vol] 0.6 mg/dL 0.3-1.2 [facility] Serum or plasma total carbon dioxide measurement (moles/volume)Ordered By: Gilson Castro on 08-19-2022 CO2 [Moles/Vol] 23.3 mmol/L 22.0-30.0 [facility] Serum or plasma total carbon dioxide measurement (moles/volume)Ordered By: Colten Fry on 08-19-2022 CO2 [Moles/Vol] 19.4 mmol/L 22.0-30.0 [facility] Serum or plasma urea nitroge n measurement (mass/volume)Ordered By: Gilson Castro on 08-19-2022 Urea nitrogen [Mass/Vol] 15 mg/dL 08-20 [facility] Serum or plasma urea nitroge n measurement (mass/volume)Ordered By: Colten Fry on 08-19-2022 Urea nitrogen [Mass/Vol] 14 mg/dL 08-20 [facility] Specific gravity Auto test s trip (U) [Rel density]Ordered By: Gilson Castro on 08-19-2022 Specific gravity (U) [Rel density] 1.026 1.001-1.03 0 [facility] Specific gravity Auto test s trip (U) [Rel density]Ordered By: Colten Fry on 08-19-2022 Specific gravity (U) [Rel density] 1.023 1.001-1.03 0 [facility] Squamous epithelial cells de tection in urine sediment by light microscopyOrdered By: Gilson Castro on 08-19-2022 Epithelial cells.squamous LM Ql (Urine sed) 20-30 [HPF] 0-2 [facility] Squamous epithelial cells de tection in urine sediment by light microscopyOrdered By: Colten Fry on 08-19-2022 Epithelial cells.squamous LM Ql (Urine sed) 20-30 [HPF] 0-2 [facility] Urine bacteria detection by automated methodOrdered By: Gilson Castro on 08-19-2022 Bacteria Auto Ql (U) 2+ None Seen [facility] Urine bacteria detection by automated methodOrdered By: Colten Fry on 08-19-2022 Bacteria Auto Ql (U) 1+ None Seen [facility] Urine clarity by refractomet ry automatedOrdered By: Gilson Castro on 08-19-2022 Clarity Refractometry automated (U) Turbid Clear [facility] Urine clarity by refractomet ry automatedOrdered By: Colten Fry on 08-19-2022 Clarity Refractometry automated (U) Cloudy Clear [facility] Urine glucose measurement by automated test strip (mass/volume)Ordered By: Gilson Castro on 08-19-2022 Glucose Auto test strip (U) [Mass/Vol] Normal mg/dL Normal [facility] Urine glucose measurement by automated test strip (mass/volume)Ordered By: Colten Fry on 08-19-2022 Glucose Auto test strip (U) [Mass/Vol] Normal mg/dL Normal [facility] Urine hemoglobin detection b y automated test stripOrdered By: Gilson Castro on 08-19-2022 Hemoglobin Auto test strip Ql (U) Negative Negative [facility] Urine hemoglobin detection b y automated test stripOrdered By: Colten Fry on 08-19-2022 Hemoglobin Auto test strip Ql (U) Negative Negative [facility] Urine leukocyte esterase det ection by automated test stripOrdered By: Gilson Castro on 08-19-2022 Leukocyte esterase Auto test strip Ql (U) 2+ Negative [facility] Urine leukocyte esterase det ection by automated test stripOrdered By: Colten Fry on 08-19-2022 Leukocyte esterase Auto test strip Ql (U) 1+ Negative [facility] Urobilinogen Auto test strip (U) [Mass/Vol]Ordered By: Gilson Castro on 08-19-2022 Urobilinogen (U) [Mass/Vol] Normal mg/dL Normal [facility] Urobilinogen Auto test strip (U) [Mass/Vol]Ordered By: Colten Fry on 08-19-2022 Urobilinogen (U) [Mass/Vol] Normal mg/dL Normal [facility] pH Auto test strip (U)Ordere d By: Gilson Castro on 08-19-2022 pH (U) 8.0 [pH] 5.0-9.0 [facility] pH Auto test strip (U)Ordere d By: Colten Fry on 08-19-2022 pH (U) 6.0 [pH] 5.0-9.0 [facility] COVID-19 SOFIAOrdered By: Lul Rivera on 08-18-2022 SARS-CoV+SARS-CoV-2 (COVID-19) Ag IA.rapid Ql (Resp) Negative Negative [facility] Comment on above: This is a duplicate Adia SARS Antigen (JOSE A) result to be used for statistical tracking purpose only. No Panel InformationOrdered By: Joss Rivera on 08-18-2022 SARS Antigen (LFIA) [facility] Basophils Auto (Bld) [#/Vol] Ordered By: Modesta Chand on 06-25-2022 Basophils (Bld) [#/Vol] 0.1 10*3/uL 0.0-0.1 [facility] Basophils/100 WBC Auto (Bld) Ordered By: Modesta Chand on 06-25-2022 Basophils/100 WBC (Bld) 1.2 % . [facility] Blood hemoglobin measurement (mass/volume)Ordered By: Modesta Chand on 06-25-2022 Hemoglobin (Bld) [Mass/Vol] 13.8 g/dL 12.0-16.0 [facility] Blood leukocytes automated c ount (number/volume)Ordered By: Modesta Chand on 06-25-2022 WBC (Bld) [#/Vol] 7.9 10*3/uL 4.5-13.5 [facility] Body fluid albumin measureme nt (mass/volume)Ordered By: Modesta Chand on 06-25-2022 Albumin (Body fld) [Mass/Vol] 4.5 g/dL 3.2-5.[address] [facility] [address] biopsyOrdered By: Yasmine Chand on 06-25-2022 Transferrin [Mass/Vol] 328 mg/dL 180-380 [facility] Creatinine and Glomerular fi ltration rate.predicted panel (S/P/Bld)Ordered By: Modesta Chand on 06-25-2022 Creatinine [Mass/Vol] 0.67 mg/dL 0.44-1.03 [facility] Eosinophils Auto (Bld) [#/Vo l]Ordered By: Modesta Chand on 06-25-2022 Eosinophils (Bld) [#/Vol] 0.6 10*3/uL 0.0-0.7 [facility] Eosinophils/100 WBC Auto (Bl d)Ordered By: Modesta Chand on 06-25-2022 Eosinophils/100 WBC (Bld) 7.2 % . [facility] Erythrocyte distribution wid th Auto (RBC) [Ratio]Ordered By: Modesta Chand on 06-25-2022 Erythrocyte distribution width (RBC) [Ratio] 13.6 % 11.9-15.3 [facility] Estimated glomerular filtrat ion rate (GFR) non- AmericanOrdered By: Modesta Chand on 06-25-2022 GFR/1.73 sq M.predicted among non-blacks MDRD (S/P/Bld) [Vol rate/Area] > 60 mL/Min [facility] Ferritin [Mass/volume] in Se rum or PlasmaOrdered By: Modesta Chand on 06-25-2022 Ferritin [Mass/Vol] 28.5 ng/mL 11-306.8 [facility] Globulin Calc (S) [Mass/Vol] Ordered By: Modesta Chand on 06-25-2022 Globulin (S) [Mass/Vol] 2.5 g/dL [facility] Hematocrit Auto (Bld) [Volum e fraction]Ordered By: Modesta Chand on 06-25-2022 Hematocrit (Bld) [Volume fraction] 42.3 % 36.0-46.0 [facility] Iron [Mass/volume] in Serum or PlasmaOrdered By: Modesta Chand on 06-25-2022 Iron [Mass/Vol] 52 ug/dL 40-150 [facility] Iron binding capacity [Mass/ volume] in Serum or PlasmaOrdered By: Modesta Chand on 06-25-2022 Iron binding capacity [Mass/Vol] 459 ug/dL 255-450 [facility] Iron saturation [Mass Fracti on] in Serum or PlasmaOrdered By: Modesta Chand on 06-25-2022 Iron saturation [Mass fraction] 11.0 % 20-50 [facility] Laboratory - Hematology and Cell countsOrdered By: Modesta Chand on 06-25-2022 Nucleated RBC/100 WBC (Bld) [Ratio] 0.0 % 0-0.5 [facility] Lymphocytes Auto (Bld) [#/Vo l]Ordered By: Modesta Chand on 06-25-2022 Lymphocytes (Bld) [#/Vol] 2.1 10*3/uL 1.20-4.8 [facility] Lymphocytes/100 WBC Auto (Bl d)Ordered By: Modesta Chand on 06-25-2022 Lymphocytes/100 WBC (Bld) 26.9 % . [facility] MCH Auto (RBC) [Entitic mass ]Ordered By: Modesta Chand on 06-25-2022 MCH (RBC) [Entitic mass] 28.1 pg 25.0-35.0 [facility] MCHC Auto (RBC) [Mass/Vol]Or dered By: Modesta Chand on 06-25-2022 MCHC (RBC) [Mass/Vol] 32.7 g/dL 31.0-37.0 [facility] MCV Auto (RBC) [Entitic vol] Ordered By: Modesta Chand on 06-25-2022 MCV (RBC) [Entitic vol] 85.8 fL 78-102 [facility] Monocytes Auto (Bld) [#/Vol] Ordered By: Modesta Chand on 06-25-2022 Monocytes (Bld) [#/Vol] 0.6 10*3/uL 0.1-1.00 [facility] Monocytes/100 WBC Auto (Bld) Ordered By: Modesta Chand on 06-25-2022 Monocytes/100 WBC (Bld) 7.2 % . [facility] Neutrophils Auto (Bld) [#/Vo l]Ordered By: Modesta Chand on 06-25-2022 Neutrophils (Bld) [#/Vol] 4.5 10*3/uL 1.2-7.7 [facility] Neutrophils/100 WBC Auto (Bl d)Ordered By: Modesta Chand on 06-25-2022 Neutrophils/100 WBC (Bld) 57.5 % . [facility] No Panel InformationOrdered By: Modesta Chand on 06-25-2022 25-Hydroxy Vitamin D Total 35.9 ng/mL 30-100 [facility] Comment on above: VITAMIN D STATUS 25( [place])VITAMIN D RANGE (ng/mL) Deficient <20 Insufficient 20 to <30 Sufficient 30 to 100 Reference: Danica MF,Chayo NC, Sony GUERRERO, et al. Evaluation,treatment, and prevention of vitamin D deficiency; an Endocrine Society clinical practice guideline. JCEM. 2010; 96(7):1911-30. Absolute Reticulocyte Count 0.066 10*6/uL 0.024-0.08 4 [facility] Estimated GFR () > 60 mL/Min [facility] Comment on above: GFR estimated refere nce range: According to KDOQI guidelines, <60 ml/min/1.73m2 is sufficient to diagnose a patient with chronic kidney disease. Percent Reticulocyte Count 1.3 % 0.5-1.5 [facility] Pharmacy Creatinine Clearance (Chem N/A [facility] Platelet mean volume Auto (B ld) [Entitic vol]Ordered By: Modesta Chand on 06-25-2022 Platelet mean volume (Bld) [Entitic vol] 9.0 fL 6.3-10.7 [facility] Platelets Auto (Bld) [#/Vol] Ordered By: Modesta Chand on 06-25-2022 Platelets (Bld) [#/Vol] 263 10*3/uL 150-450 [facility] Protein [Mass/volume] in Ser um or PlasmaOrdered By: Modesta Chand on 06-25-2022 Protein [Mass/Vol] 7.0 g/dL 6.1-7.9 [facility] RBC Auto (Bld) [#/Vol]Ordere d By: Modesta Chand on 06-25-2022 RBC (Bld) [#/Vol] 4.94 10*6/uL 4.10-5.10 [facility] Serum or plasma alanine florez otransferase measurement without P-5'-P (enzymatic activiOrdered By: Modesta Chand on 06-25-2022 ALT No additional P-5'-P [Catalytic activity/Vol] 18 U/L 10-60 [facility] Serum or plasma albumin/glob ulin mass ratioOrdered By: Modesta Chand on 06-25-2022 Albumin/Globulin [Mass ratio] 1.8 {ratio} [facility] Serum or plasma alkaline justin sphatase measurement (enzymatic activity/volume)Ordered By: Modesta Chand on 06-25-2022 ALP [Catalytic activity/Vol] 65 U/L 32-92 [facility] Serum or plasma aspartate am inotransferase measurement (enzymatic activity/volume)Ordered By: Modesta Chand on 06-25-2022 AST [Catalytic activity/Vol] 18 U/L 10-42 [facility] Serum or plasma calcium tammy urement (mass/volume)Ordered By: Modesta Chand on 06-25-2022 Calcium [Mass/Vol] 10.2 mg/dL 8.2-10.2 [facility] Serum or plasma chloride judy surement (moles/volume)Ordered By: Modesta Chand on 06-25-2022 Chloride [Moles/Vol] 102 mmol/L 95-114 [facility] Serum or plasma glucose tammy urement (mass/volume)Ordered By: Modesta Chand on 06-25-2022 Glucose [Mass/Vol] 87 mg/dL 70-100 [facility] Comment on above: ADA recommended refe rence range Random Glucose Reference Range is dependent on time and content of last meal. Glucose of more than 200 mg/dL in a nonstressed, ambulatory subject supports the diagnosis of Diabetes Mellitus. Serum or plasma potassium me asurement (moles/volume)Ordered By: Modesta Chand on 06-25-2022 Potassium [Moles/Vol] 4.4 mmol/L 3.5-5.1 [facility] Serum or plasma sodium measu rement (moles/volume)Ordered By: Modesta Chand on 06-25-2022 Sodium [Moles/Vol] 137 mmol/L 136-146 [facility] Serum or plasma total biliru bin measurement (mass/volume)Ordered By: Modesta Chand on 06-25-2022 Bilirubin [Mass/Vol] 0.4 mg/dL 0.3-1.2 [facility] Serum or plasma total carbon dioxide measurement (moles/volume)Ordered By: Modesta Chand on 06-25-2022 CO2 [Moles/Vol] 23.8 mmol/L 22.0-30.0 [facility] Serum or plasma urea nitroge n measurement (mass/volume)Ordered By: Modesta Chand on 06-25-2022 Urea nitrogen [Mass/Vol] 14 mg/dL 9-23 [facility] TSH DL <= 0.005 mIU/L QnOrde red By: Modesta Chand on 06-25-2022 TSH Qn 1.05 m[IU]/L 0.45-5.33 [facility] Thyroxine (T4) free [Mass/vo lume] in Serum or PlasmaOrdered By: Modesta Chand on 06-25-2022 Free T4 [Mass/Vol] 0.74 ng/dL 0.61-1.12 [facility] HCG ( test) IA.rapi d Ql (U)Ordered By: Brennen Britt on 06-09-2022 HCG ( test) Ql (U) Negative [facility] COVID-19 Positive/NegativeOr dered By: Brennen Britt on 06-07-2022 SARS-CoV-2 (COVID-19) N gene JANAK+probe Ql (Resp) Negative Negative [facility] Comment on above: Testing for SARS-CoV -2 by RT-PCR This test was developed and its performance characteristics determined by [employer] ([employer] and validated at the [facility]. This test has not been [...] on 05-26-2022 Albumin [Mass/Vol] 3.9 g/dL 3.2-5.5 [facility] Basophils Auto (Bld) [#/Vol] Ordered By: Modesta Chand on 05-26-2022 Basophils (Bld) [#/Vol] 0.1 10*3/uL 0.0-0.1 [facility] Basophils/100 WBC Auto (Bld) Ordered By: Modesta Chand on 05-26-2022 Basophils/100 WBC (Bld) 1.1 % . [facility] Blood hemoglobin measurement (mass/volume)Ordered By: Modesta Chand on 05-26-2022 Hemoglobin (Bld) [Mass/Vol] 13.6 g/dL 12.0-16.0 [facility] Blood leukocytes automated c ount (number/volume)Ordered By: Modesta Chand on 05-26-2022 WBC (Bld) [#/Vol] 10.6 10*3/uL 4.5-13.5 [facility] C reactive protein [Mass/vol ume] in Serum or PlasmaOrdered By: Modesta Chand on 05-26-2022 CRP [Mass/Vol] 0.6 mg/dL 0.0-1.0 [facility] [address] biopsyOrdered By: Yasmine Chand on 05-26-2022 Transferrin [Mass/Vol] 292 mg/dL 180-380 [facility] Creatinine and Glomerular fi ltration rate.predicted panel (S/P/Bld)Ordered By: Modesta Chand on 05-26-2022 Creatinine [Mass/Vol] 0.63 mg/dL 0.44-1.03 [facility] Eosinophils Auto (Bld) [#/Vo l]Ordered By: Modesta Chand on 05-26-2022 Eosinophils (Bld) [#/Vol] 0.4 10*3/uL 0.0-0.7 [facility] Eosinophils/100 WBC Auto (Bl d)Ordered By: Modesta Chand on 05-26-2022 Eosinophils/100 WBC (Bld) 3.6 % . [facility] Erythrocyte distribution wid th Auto (RBC) [Ratio]Ordered By: Modesta Chand on 05-26-2022 Erythrocyte distribution width (RBC) [Ratio] 13.7 % 11.9-15.3 [facility] Erythrocyte sedimentation ra te by Photometric methodOrdered By: Modesta Chand on 05-26-2022 ESR Photometric method (Bld) [Velocity] 5 mm/hr 0-19 [facility] Estimated glomerular filtrat ion rate (GFR) non- AmericanOrdered By: Modesta Chand on 05-26-2022 GFR/1.73 sq M.predicted among non-blacks MDRD (S/P/Bld) [Vol rate/Area] > 60 mL/Min [facility] Ferritin [Mass/volume] in Se rum or PlasmaOrdered By: Modesta Chand on 05-26-2022 Ferritin [Mass/Vol] 14.2 ng/mL 11-306.8 [facility] Folate [Mass/volume] in Seru m or PlasmaOrdered By: Modesta Chand on 05-26-2022 Folate [Mass/Vol] 13.0 ng/mL >5.9 [facility] Comment on above: Folate reference ran ge: >5.9 ng/ml The WHO technical consultation on folate and vitamin b12 deficiencies has determined that folate concentrations less than 4 ng/ml are considered deficient. Globulin Calc (S) [Mass/Vol] Ordered By: Modesta Chand on 05-26-2022 Globulin (S) [Mass/Vol] 2.3 g/dL [facility] Glucose mean value [Mass/vol ume] in Blood Estimated from glycated hemoglobinOrdered By: Modesta Chadn on 05-26-2022 Average glucose Estimated from glycated hemoglobin (Bld) [Mass/Vol] 111 mg/dL [facility] Hematocrit Auto (Bld) [Volum e fraction]Ordered By: Modesta Chand on 05-26-2022 Hematocrit (Bld) [Volume fraction] 41.4 % 36.0-46.0 [facility] Hemoglobin A1c percentageOrd ered By: Modesta Chand on 05-26-2022 HbA1c (Bld) [Mass fraction] 5.5 % 4.3-5.6 [facility] Comment on above: Increased risk for d iabetes: 5.7 - 6.4 diabetes: >6.4 glycemic control for adults with diabetes: <7.0 Iron [Mass/volume] in Serum or PlasmaOrdered By: Modesta Chand on 05-26-2022 Iron [Mass/Vol] 63 ug/dL 40-150 [facility] Iron binding capacity [Mass/ volume] in Serum or PlasmaOrdered By: Modesta Chand on 05-26-2022 Iron binding capacity [Mass/Vol] 409 ug/dL 255-450 [facility] Iron saturation [Mass Fracti on] in Serum or PlasmaOrdered By: Modesta Chand on 05-26-2022 Iron saturation [Mass fraction] 15.0 % 20-50 [facility] Laboratory - Chemistry and C hemistry - challengeOrdered By: Modesta Chand on 05-26-2022 Cobalamin (Vitamin B12) [Mass/Vol] 329 pg/mL 180-914 [facility] Laboratory - Hematology and Cell countsOrdered By: Modesta Chand on 05-26-2022 Nucleated RBC/100 WBC (Bld) [Ratio] 0.0 % 0-0.5 [facility] Lymphocytes Auto (Bld) [#/Vo l]Ordered By: Modesta Chand on 05-26-2022 Lymphocytes (Bld) [#/Vol] 2.3 10*3/uL 1.20-4.8 [facility] Lymphocytes/100 WBC Auto (Bl d)Ordered By: Modesta Chand on 05-26-2022 Lymphocytes/100 WBC (Bld) 21.6 % . [facility] MCH Auto (RBC) [Entitic mass ]Ordered By: Modesta Chand on 05-26-2022 MCH (RBC) [Entitic mass] 28.6 pg 25.0-35.0 [facility] MCHC Auto (RBC) [Mass/Vol]Or dered By: Modesta Chand on 05-26-2022 MCHC (RBC) [Mass/Vol] 33.0 g/dL 31.0-37.0 [facility] MCV Auto (RBC) [Entitic vol] Ordered By: Modesta Chand on 05-26-2022 MCV (RBC) [Entitic vol] 86.6 fL 78-102 [facility] Monocytes Auto (Bld) [#/Vol] Ordered By: Modesta Chand on 05-26-2022 Monocytes (Bld) [#/Vol] 0.6 10*3/uL 0.1-1.00 [facility] Monocytes/100 WBC Auto (Bld) Ordered By: Modesta Chand on 05-26-2022 Monocytes/100 WBC (Bld) 5.9 % . [facility] Neutrophils Auto (Bld) [#/Vo l]Ordered By: Modesta Chand on 05-26-2022 Neutrophils (Bld) [#/Vol] 7.2 10*3/uL 1.2-7.7 [facility] Neutrophils/100 WBC Auto (Bl d)Ordered By: Modesta Chand on 05-26-2022 Neutrophils/100 WBC (Bld) 67.8 % . [facility] No Panel InformationOrdered By: Modesta Chand on 05-26-2022 25-Hydroxy Vitamin D Total 26.9 ng/mL 30-100 [facility] Comment on above: VITAMIN D STATUS 25( [place])VITAMIN D RANGE (ng/mL) Deficient <20 Insufficient 20 to <30 Sufficient 30 to 100 Reference: Danica MF,Chayo NC, Sony GUERRERO, et al. Evaluation,treatment, and prevention of vitamin D deficiency; an Endocrine Society clinical practice guideline. JCEM. 2010; 96(7):1911-30. Estimated GFR () > 60 mL/Min [facility] Comment on above: GFR estimated refere nce range: According to KDOQI guidelines, <60 ml/min/1.73m2 is sufficient to diagnose a patient with chronic kidney disease. Pharmacy Creatinine Clearance (Chem N/A [facility] Platelet mean volume Auto (B ld) [Entitic vol]Ordered By: Modesta Chand on 05-26-2022 Platelet mean volume (Bld) [Entitic vol] 8.9 fL 6.3-10.7 [facility] Platelets Auto (Bld) [#/Vol] Ordered By: Modesta Chand on 05-26-2022 Platelets (Bld) [#/Vol] 286 10*3/uL 150-450 [facility] Protein [Mass/volume] in Ser um or PlasmaOrdered By: Modesta Chand on 05-26-2022 Protein [Mass/Vol] 6.2 g/dL 6.1-7.9 [facility] RBC Auto (Bld) [#/Vol]Ordere d By: Modesta Chand on 05-26-2022 RBC (Bld) [#/Vol] 4.78 10*6/uL 4.10-5.10 [facility] Serum nuclear antibody titer Ordered By: Modesta Chand on 05-26-2022 Nuclear Ab (S) [Titer] Negative . [facility] Comment on above: Negative <1:80 Borderline 1:80 Positive >1:80 ICAP nomenclature: [id number] For more information about Hep-2 cell patterns use ANApatterns.org, the official website for the International Consensus on Antinuclear Antibody (EDMOND) Patterns (ICAP). Performed at: [address] [id number] Plant Facilities Technician: James Nelson PhD, Phone: [phone] Serum or plasma alanine florez otransferase measurement without P-5'-P (enzymatic activiOrdered By: Modesta Chand on 05-26-2022 ALT No additional P-5'-P [Catalytic activity/Vol] 50 U/L 10-60 [facility] Serum or plasma albumin/glob ulin mass ratioOrdered By: Modesta Chand on 05-26-2022 Albumin/Globulin [Mass ratio] 1.7 {ratio} [facility] Serum or plasma alkaline justin sphatase measurement (enzymatic activity/volume)Ordered By: Modesta Chand on 05-26-2022 ALP [Catalytic activity/Vol] 58 U/L 32-92 [facility] Serum or plasma aspartate am inotransferase measurement (enzymatic activity/volume)Ordered By: Modesta Chand on 05-26-2022 AST [Catalytic activity/Vol] 25 U/L 10-42 [facility] Serum or plasma calcium tammy urement (mass/volume)Ordered By: Modesta Chand on 05-26-2022 Calcium [Mass/Vol] 9.3 mg/dL 8.2-10.2 [facility] Serum or plasma chloride judy surement (moles/volume)Ordered By: Modesta Chand on 05-26-2022 Chloride [Moles/Vol] 103 mmol/L 95-114 [facility] Serum or plasma glucose tammy urement (mass/volume)Ordered By: Modesta Chand on 05-26-2022 Glucose [Mass/Vol] 111 mg/dL 70-100 [facility] Comment on above: ADA recommended refe rence range Random Glucose Reference Range is dependent on time and content of last meal. Glucose of more than 200 mg/dL in a nonstressed, ambulatory subject supports the diagnosis of Diabetes Mellitus. Serum or plasma potassium me asurement (moles/volume)Ordered By: Modesta Chand on 05-26-2022 Potassium [Moles/Vol] 4.3 mmol/L 3.5-5.1 [facility] Serum or plasma sodium measu rement (moles/volume)Ordered By: Modesta Chand on 05-26-2022 Sodium [Moles/Vol] 137 mmol/L 136-146 [facility] Serum or plasma total biliru bin measurement (mass/volume)Ordered By: Modesta Chand on 05-26-2022 Bilirubin [Mass/Vol] 0.5 mg/dL 0.3-1.2 [facility] Serum or plasma total carbon dioxide measurement (moles/volume)Ordered By: Modesta Chand on 05-26-2022 CO2 [Moles/Vol] 24.9 mmol/L 22.0-30.0 [facility] Serum or plasma urea nitroge n measurement (mass/volume)Ordered By: Modesta Chand on 05-26-2022 Urea nitrogen [Mass/Vol] 9 mg/dL 9 [facility] Urine culture routineOrdered By: Gilson Castro on 05-18-2022 Bacteria identified Cx Nom (U) 2 Days [facility] Amphetamine Screen Ql (U)Ord ered By: Gilson Castro on 05-16-2022 Amphetamines Ql (U) Negative Negative [facility] Automated erythrocytes count in urine sediment (number/area)Ordered By: Gilson Castro on 05-16-2022 RBC Auto (Urine sed) [#/Area] 3-4 [HPF] 0-4 [facility] Automated leukocytes count i n urine sediment (number/area)Ordered By: Gilson Castro on 05-16-2022 WBC Auto (Urine sed) [#/Area] 5-9 [HPF] 0-4 [facility] Automated urine hyaline cast s count (number/volume)Ordered By: Gilson Castro on 05-16-2022 Hyaline casts Auto (U) [#/Vol] None seen [LPF] 0-1 [facility] Barbiturates [Presence] in U rineOrdered By: Gilson Castro on 05-16-2022 Barbiturates Ql (U) Positive Negative [facility] Basophils Auto (Bld) [#/Vol] Ordered By: Gilson Castro on 05-16-2022 Basophils (Bld) [#/Vol] 0.0 10*3/uL 0.0-0.1 [facility] Basophils/100 WBC Auto (Bld) Ordered By: Gilson Castro on 05-16-2022 Basophils/100 WBC (Bld) 0.4 % . [facility] Benzodiazepines [Presence] i n UrineOrdered By: Gilson Castro on 05-16-2022 Benzodiazepines Ql (U) Negative Negative [facility] Bilirubin Test strip Ql (U)O rdered By: Gilson Castro on 05-16-2022 Bilirubin Ql (U) Negative Negative [facility] Blood hemoglobin measurement (mass/volume)Ordered By: Gilson Castro on 05-16-2022 Hemoglobin (Bld) [Mass/Vol] 13.4 g/dL 12.0-16.0 [facility] Blood leukocytes automated c ount (number/volume)Ordered By: Gilson Castro on 05-16-2022 WBC (Bld) [#/Vol] 10.0 10*3/uL 4.5-13.5 [facility] Body fluid albumin measureme nt (mass/volume)Ordered By: Gilson Castro on 05-16-2022 Albumin (Body fld) [Mass/Vol] 4.3 g/dL 3.2-5.5 [facility] Cannabinoids [Presence] in U rine by Screen methodOrdered By: Gilson Castro on 05-16-2022 Cannabinoids Screen Ql (U) Positive Negative [facility] Comment on above: These are [...] (Urine sed) None seen [LPF] None Seen [facility] Color Auto (U)Ordered By: Pierce Castro on 05-16-2022 Color (U) Yellow Yellow [facility] Creatinine and Glomerular fi ltration rate.predicted panel (S/P/Bld)Ordered By: Gilson Castro on 05-16-2022 Creatinine [Mass/Vol] 0.80 mg/dL 0.44-1.03 [facility] Eosinophils Auto (Bld) [#/Vo l]Ordered By: Gilson Castro on 05-16-2022 Eosinophils (Bld) [#/Vol] 0.1 10*3/uL 0.0-0.7 [facility] Eosinophils/100 WBC Auto (Bl d)Ordered By: Gilson Castro on 05-16-2022 Eosinophils/100 WBC (Bld) 0.7 % . [facility] Erythrocyte distribution wid th Auto (RBC) [Ratio]Ordered By: Gilson Castro on 05-16-2022 Erythrocyte distribution width (RBC) [Ratio] 13.4 % 11.9-15.3 [facility] Estimated glomerular filtrat ion rate (GFR) non- AmericanOrdered By: Gilson Castro on 05-16-2022 GFR/1.73 sq M.predicted among non-blacks MDRD (S/P/Bld) [Vol rate/Area] > 60 mL/Min [facility] Globulin Calc (S) [Mass/Vol] Ordered By: Gilson Castro on 05-16-2022 Globulin (S) [Mass/Vol] 2.7 g/dL [facility] HCG ( test) IA.rapi d Ql (U)Ordered By: Gilson Castro on 05-16-2022 HCG ( test) Ql (U) Negative [facility] Hematocrit Auto (Bld) [Volum e fraction]Ordered By: Gilson Castro on 05-16-2022 Hematocrit (Bld) [Volume fraction] 39.4 % 36.0-46.0 [facility] Ketones Auto test strip (U) [Mass/Vol]Ordered By: Gilson Castro on 05-16-2022 Ketones (U) [Mass/Vol] 3+ Negative [facility] Laboratory - Chemistry and C hemistry - challengeOrdered By: Gilson Castro on 05-16-2022 Lipase [Catalytic activity/Vol] 26.0 U/L 22-51 [facility] Laboratory - Drug toxicology Ordered By: Gilson Castro on 05-16-2022 Opiates Ql (U) Negative Negative [facility] Laboratory - Hematology and Cell countsOrdered By: Gilson Castro on 05-16-2022 Nucleated RBC/100 WBC (Bld) [Ratio] 0.0 % 0-0.5 [facility] Lymphocytes Auto (Bld) [#/Vo l]Ordered By: Gilson Castro on 05-16-2022 Lymphocytes (Bld) [#/Vol] 1.9 10*3/uL 1.20-4.8 [facility] Lymphocytes/100 WBC Auto (Bl d)Ordered By: Glison Castro on 05-16-2022 Lymphocytes/100 WBC (Bld) 18.7 % . [facility] MCH Auto (RBC) [Entitic mass ]Ordered By: Gilson Castro on 05-16-2022 MCH (RBC) [Entitic mass] 28.6 pg 25.0-35.0 [facility] MCHC Auto (RBC) [Mass/Vol]Or dered By: Gilson Castro on 05-16-2022 MCHC (RBC) [Mass/Vol] 34.1 g/dL 31.0-37.0 [facility] MCV Auto (RBC) [Entitic vol] Ordered By: Gilson Castro on 05-16-2022 MCV (RBC) [Entitic vol] 84.0 fL 78-102 [facility] Monocytes Auto (Bld) [#/Vol] Ordered By: Gilson Castro on 05-16-2022 Monocytes (Bld) [#/Vol] 0.9 10*3/uL 0.1-1.00 [facility] Monocytes/100 WBC Auto (Bld) Ordered By: Gilson Castro on 05-16-2022 Monocytes/100 WBC (Bld) 9.2 % . [facility] Neutrophils Auto (Bld) [#/Vo l]Ordered By: Gilson Castro on 05-16-2022 Neutrophils (Bld) [#/Vol] 7.1 10*3/uL 1.2-7.7 [facility] Neutrophils/100 WBC Auto (Bl d)Ordered By: Gilson Castro on 05-16-2022 Neutrophils/100 WBC (Bld) 71.0 % . [facility] Nitrite Test strip Ql (U)Ord ered By: Gilson Castro on 05-16-2022 Nitrite Ql (U) Negative Negative [facility] No Panel InformationOrdered By: Gilson Castro on 05-16-2022 Estimated GFR () > 60 mL/Min [facility] Comment on above: GFR estimated refere nce range: According to KDOQI guidelines, <60 ml/min/1.73m2 is sufficient to diagnose a patient with chronic kidney disease. Pharmacy Creatinine Clearance (Chem 109.65 [facility] Phencyclidine Screen Ql (U)O rdered By: Gilson Castro on 05-16-2022 Phencyclidine Ql (U) Negative Negative [facility] Platelet mean volume Auto (B ld) [Entitic vol]Ordered By: Gilson Castro on 05-16-2022 Platelet mean volume (Bld) [Entitic vol] 8.5 fL 6.3-10.7 [facility] Platelets Auto (Bld) [#/Vol] Ordered By: Gilson Castro on 05-16-2022 Platelets (Bld) [#/Vol] 241 10*3/uL 150-450 [facility] Protein Auto test strip (U) [Mass/Vol]Ordered By: Gilson Castro on 05-16-2022 Protein (U) [Mass/Vol] Trace mg/dL Negative [facility] Protein [Mass/volume] in Ser um or PlasmaOrdered By: Gilson Catsro on 05-16-2022 Protein [Mass/Vol] 7.0 g/dL 6.1-7.9 [facility] RBC Auto (Bld) [#/Vol]Ordere d By: Gilson Castro on 05-16-2022 RBC (Bld) [#/Vol] 4.69 10*6/uL 4.10-5.10 [facility] Serum or plasma alanine florez otransferase measurement without P-5'-P (enzymatic activiOrdered By: Gilson Castro on 05-16-2022 ALT No additional P-5'-P [Catalytic activity/Vol] 23 U/L 10-60 [facility] Serum or plasma albumin/glob ulin mass ratioOrdered By: Gilson Castro on 05-16-2022 Albumin/Globulin [Mass ratio] 1.6 {ratio} [facility] Serum or plasma alkaline justin sphatase measurement (enzymatic activity/volume)Ordered By: Gilson Castro on 05-16-2022 ALP [Catalytic activity/Vol] 58 U/L 32-92 [facility] Serum or plasma aspartate am inotransferase measurement (enzymatic activity/volume)Ordered By: Gilson Castro on 05-16-2022 AST [Catalytic activity/Vol] 22 U/L 10-42 [facility] Serum or plasma calcium tammy urement (mass/volume)Ordered By: Gilson Castro on 05-16-2022 Calcium [Mass/Vol] 9.2 mg/dL 8.2-10.2 [facility] Serum or plasma chloride judy surement (moles/volume)Ordered By: Gilson Castro on 05-16-2022 Chloride [Moles/Vol] 97 mmol/L 95-114 [facility] Serum or plasma glucose tammy urement (mass/volume)Ordered By: Gilson Castro on 05-16-2022 Glucose [Mass/Vol] 90 mg/dL 70-100 [facility] Comment on above: ADA recommended refe rence range Random Glucose Reference Range is dependent on time and content of last meal. Glucose of more than 200 mg/dL in a nonstressed, ambulatory subject supports the diagnosis of Diabetes Mellitus. Serum or plasma potassium me asurement (moles/volume)Ordered By: Gilson Castro on 05-16-2022 Potassium [Moles/Vol] 3.2 mmol/L 3.5-5.1 [facility] Serum or plasma sodium measu rement (moles/volume)Ordered By: Gilson Castro on 05-16-2022 Sodium [Moles/Vol] 135 mmol/L 136-146 [facility] Serum or plasma total biliru bin measurement (mass/volume)Ordered By: Gilson Castro on 05-16-2022 Bilirubin [Mass/Vol] 1.0 mg/dL 0.3-1.2 [facility] Serum or plasma total carbon dioxide measurement (moles/volume)Ordered By: Gilson Castro on 05-16-2022 CO2 [Moles/Vol] 24.6 mmol/L 22.0-30.0 [facility] Serum or plasma urea nitroge n measurement (mass/volume)Ordered By: Gilson Castro on 05-16-2022 Urea nitrogen [Mass/Vol] 23 mg/dL 9-23 [facility] Specific gravity Auto test s trip (U) [Rel density]Ordered By: Gilson Castro on 05-16-2022 Specific gravity (U) [Rel density] 1.023 1.001-1.03 0 [facility] Squamous epithelial cells de tection in urine sediment by light microscopyOrdered By: Gilson Castro on 05-16-2022 Epithelial cells.squamous LM Ql (Urine sed) 20-30 [HPF] 0-2 [facility] Urine bacteria detection by automated methodOrdered By: Gilson Castro on 05-16-2022 Bacteria Auto Ql (U) 1+ None Seen [facility] Urine clarity by refractomet ry automatedOrdered By: Gilson Castro on 05-16-2022 Clarity Refractometry automated (U) Turbid Clear [facility] Urine cocaine detectionOrder ed By: Gilson Castro on 05-16-2022 Cocaine Ql (U) Negative Negative [facility] Urine glucose measurement by automated test strip (mass/volume)Ordered By: Gilson Castro on 05-16-2022 Glucose Auto test strip (U) [Mass/Vol] Normal mg/dL Normal [facility] Urine hemoglobin detection b y automated test stripOrdered By: Gilson Castro on 05-16-2022 Hemoglobin Auto test strip Ql (U) Negative Negative [facility] Urine leukocyte esterase det ection by automated test stripOrdered By: Gilson Castro on 05-16-2022 Leukocyte esterase Auto test strip Ql (U) 2+ Negative [facility] Urobilinogen Auto test strip (U) [Mass/Vol]Ordered By: Gilson Castro on 05-16-2022 Urobilinogen (U) [Mass/Vol] Normal mg/dL Normal [facility] pH Auto test strip (U)Ordere d By: Gilson Castro on 05-16-2022 pH (U) 8.0 [pH] 5.0-9.0 [facility] Albumin [Mass/volume] in Ser um or PlasmaOrdered By: Art Bianchi on 05-15-2022 Albumin [Mass/Vol] 4.7 g/dL 3.2-5.5 [facility] Basophils Auto (Bld) [#/Vol] Ordered By: Art Bianchi on 05-15-2022 Basophils (Bld) [#/Vol] 0.0 10*3/uL 0.0-0.1 [facility] Basophils/100 WBC Auto (Bld) Ordered By: Art Bianchi on 05-15-2022 Basophils/100 WBC (Bld) 0.2 % . [facility] Blood hemoglobin measurement (mass/volume)Ordered By: Art Bianchi on 05-15-2022 Hemoglobin (Bld) [Mass/Vol] 13.6 g/dL 12.0-16.0 [facility] Blood leukocytes automated c ount (number/volume)Ordered By: Art Bianchi on 05-15-2022 WBC (Bld) [#/Vol] 14.0 10*3/uL 4.5-13.5 [facility] Creatinine and Glomerular fi ltration rate.predicted panel (S/P/Bld)Ordered By: Art Bianchi on 05-15-2022 Creatinine [Mass/Vol] 0.76 mg/dL 0.44-1.03 [facility] Eosinophils Auto (Bld) [#/Vo l]Ordered By: Art Bianchi on 05-15-2022 Eosinophils (Bld) [#/Vol] 0.0 10*3/uL 0.0-0.7 [facility] Eosinophils/100 WBC Auto (Bl d)Ordered By: Art Bianchi on 05-15-2022 Eosinophils/100 WBC (Bld) 0.4 % . [facility] Erythrocyte distribution wid th Auto (RBC) [Ratio]Ordered By: Art Bianchi on 05-15-2022 Erythrocyte distribution width (RBC) [Ratio] 13.7 % 11.9-15.3 [facility] Estimated glomerular filtrat ion rate (GFR) non- AmericanOrdered By: Art Bianchi on 05-15-2022 GFR/1.73 sq M.predicted among non-blacks MDRD (S/P/Bld) [Vol rate/Area] > 60 mL/Min [facility] Globulin Calc (S) [Mass/Vol] Ordered By: Art Bianchi on 05-15-2022 Globulin (S) [Mass/Vol] 3.2 g/dL [facility] Hematocrit Auto (Bld) [Volum e fraction]Ordered By: Art Bianchi on 05-15-2022 Hematocrit (Bld) [Volume fraction] 41.0 % 36.0-46.0 [facility] Laboratory - Chemistry and C hemistry - challengeOrdered By: Art Bianchi on 05-15-2022 Lipase [Catalytic activity/Vol] 24.0 U/L 22-51 [facility] Laboratory - Hematology and Cell countsOrdered By: Art Bianchi on 05-15-2022 Nucleated RBC/100 WBC (Bld) [Ratio] 0.0 % 0-0.5 [facility] Lymphocytes Auto (Bld) [#/Vo l]Ordered By: Art Bianchi on 05-15-2022 Lymphocytes (Bld) [#/Vol] 2.6 10*3/uL 1.20-4.8 [facility] Lymphocytes/100 WBC Auto (Bl d)Ordered By: Art Bianchi on 05-15-2022 Lymphocytes/100 WBC (Bld) 18.4 % . [facility] MCH Auto (RBC) [Entitic mass ]Ordered By: Art Bianchi on 05-15-2022 MCH (RBC) [Entitic mass] 28.0 pg 25.0-35.0 [facility] MCHC Auto (RBC) [Mass/Vol]Or dered By: Art Bianchi on 05-15-2022 MCHC (RBC) [Mass/Vol] 33.3 g/dL 31.0-37.0 [facility] MCV Auto (RBC) [Entitic vol] Ordered By: Art Bianchi on 05-15-2022 MCV (RBC) [Entitic vol] 84.1 fL 78-102 [facility] Monocytes Auto (Bld) [#/Vol] Ordered By: Art Bianchi on 05-15-2022 Monocytes (Bld) [#/Vol] 1.2 10*3/uL 0.1-1.00 [facility] Monocytes/100 WBC Auto (Bld) Ordered By: Art Bianchi on 05-15-2022 Monocytes/100 WBC (Bld) 8.3 % . [facility] Neutrophils Auto (Bld) [#/Vo l]Ordered By: Art Bianchi on 05-15-2022 Neutrophils (Bld) [#/Vol] 10.2 10*3/uL 1.2-7.7 [facility] Neutrophils/100 WBC Auto (Bl d)Ordered By: Art Bianchi on 05-15-2022 Neutrophils/100 WBC (Bld) 72.7 % . [facility] No Panel InformationOrdered By: Art Bianchi on 05-15-2022 Estimated GFR () > 60 mL/Min [facility] Comment on above: GFR estimated refere nce range: According to KDOQI guidelines, <60 ml/min/1.73m2 is sufficient to diagnose a patient with chronic kidney disease. Pharmacy Creatinine Clearance (Chem 115.34 [facility] Platelet mean volume Auto (B ld) [Entitic vol]Ordered By: Art Bianchi on 05-15-2022 Platelet mean volume (Bld) [Entitic vol] 8.8 fL 6.3-10.7 [facility] Platelets Auto (Bld) [#/Vol] Ordered By: Art Bianchi on 05-15-2022 Platelets (Bld) [#/Vol] 315 10*3/uL 150-450 [facility] Protein [Mass/volume] in Ser um or PlasmaOrdered By: Art Bianchi on 05-15-2022 Protein [Mass/Vol] 7.9 g/dL 6.1-7.9 [facility] RBC Auto (Bld) [#/Vol]Ordere d By: Art Bianchi on 05-15-2022 RBC (Bld) [#/Vol] 4.88 10*6/uL 4.10-5.10 [facility] Serum or plasma alanine florez otransferase measurement without P-5'-P (enzymatic activiOrdered By: Art Bianchi on 05-15-2022 ALT No additional P-5'-P [Catalytic activity/Vol] 25 U/L 10-60 [facility] Serum or plasma albumin/glob ulin mass ratioOrdered By: Art Bianchi on 05-15-2022 Albumin/Globulin [Mass ratio] 1.5 {ratio} [facility] Serum or plasma alkaline justin sphatase measurement (enzymatic activity/volume)Ordered By: Art Bianchi on 05-15-2022 ALP [Catalytic activity/Vol] 66 U/L 32-92 [facility] Serum or plasma aspartate am inotransferase measurement (enzymatic activity/volume)Ordered By: Art Bianchi on 05-15-2022 AST [Catalytic activity/Vol] 33 U/L 10-42 [facility] Serum or plasma calcium tammy urement (mass/volume)Ordered By: Art Bianchi on 05-15-2022 Calcium [Mass/Vol] 10.1 mg/dL 8.2-10.2 [facility] Serum or plasma chloride judy surement (moles/volume)Ordered By: Art Bianchi on 05-15-2022 Chloride [Moles/Vol] 94 mmol/L 95-114 [facility] Serum or plasma glucose tammy urement (mass/volume)Ordered By: Art Bianchi on 05-15-2022 Glucose [Mass/Vol] 102 mg/dL 70-100 [facility] Comment on above: ADA recommended refe rence range Random Glucose Reference Range is dependent on time and content of last meal. Glucose of more than 200 mg/dL in a nonstressed, ambulatory subject supports the diagnosis of Diabetes Mellitus. Serum or plasma potassium me asurement (moles/volume)Ordered By: Art Bianchi on 05-15-2022 Potassium [Moles/Vol] 3.1 mmol/L 3.5-5.1 [facility] Serum or plasma sodium measu rement (moles/volume)Ordered By: Art Bianchi on 05-15-2022 Sodium [Moles/Vol] 135 mmol/L 136-146 [facility] Serum or plasma total biliru bin measurement (mass/volume)Ordered By: Art Bianchi on 05-15-2022 Bilirubin [Mass/Vol] 1.2 mg/dL 0.3-1.2 [facility] Serum or plasma total carbon dioxide measurement (moles/volume)Ordered By: Art Bianchi on 05-15-2022 CO2 [Moles/Vol] 22.2 mmol/L 22.0-30.0 [facility] Serum or plasma urea nitroge n measurement (mass/volume)Ordered By: Art Bianchi on 05-15-2022 Urea nitrogen [Mass/Vol] 23 mg/dL 9-23 [facility] Albumin [Mass/volume] in Ser um or PlasmaOrdered By: Art Bianchi on 05-13-2022 Albumin [Mass/Vol] 4.3 g/dL 3.2-5.5 [facility] Automated erythrocytes count in urine sediment (number/area)Ordered By: Art Bianchi on 05-13-2022 RBC Auto (Urine sed) [#/Area] 1-2 [HPF] 0-4 [facility] Automated leukocytes count i n urine sediment (number/area)Ordered By: Art Bianchi on 05-13-2022 WBC Auto (Urine sed) [#/Area] 1-2 [HPF] 0-4 [facility] Basophils Auto (Bld) [#/Vol] Ordered By: Art Bianchi on 05-13-2022 Basophils (Bld) [#/Vol] 0.1 10*3/uL 0.0-0.1 [facility] Basophils/100 WBC Auto (Bld) Ordered By: Art Bianchi on 05-13-2022 Basophils/100 WBC (Bld) 1.0 % . [facility] Bilirubin Test strip Ql (U)O rdered By: Art Bianchi on 05-13-2022 Bilirubin Ql (U) Negative Negative [facility] Blood hemoglobin measurement (mass/volume)Ordered By: Art Bianchi on 05-13-2022 Hemoglobin (Bld) [Mass/Vol] 13.7 g/dL 12.0-16.0 [facility] Blood leukocytes automated c ount (number/volume)Ordered By: Art Bianchi on 05-13-2022 WBC (Bld) [#/Vol] 10.4 10*3/uL 4.5-13.5 [facility] Color Auto (U)Ordered By: Adrian Bianchi on 05-13-2022 Color (U) Yellow Yellow [facility] Creatinine and Glomerular fi ltration rate.predicted panel (S/P/Bld)Ordered By: Art Bianchi on 05-13-2022 Creatinine [Mass/Vol] 0.76 mg/dL 0.44-1.03 [facility] Eosinophils Auto (Bld) [#/Vo l]Ordered By: Art Bianchi on 05-13-2022 Eosinophils (Bld) [#/Vol] 0.5 10*3/uL 0.0-0.7 [facility] Eosinophils/100 WBC Auto (Bl d)Ordered By: Art Bianchi on 05-13-2022 Eosinophils/100 WBC (Bld) 4.6 % . [facility] Erythrocyte distribution wid th Auto (RBC) [Ratio]Ordered By: Art Bianchi on 05-13-2022 Erythrocyte distribution width (RBC) [Ratio] 13.6 % 11.9-15.3 [facility] Estimated glomerular filtrat ion rate (GFR) non- AmericanOrdered By: Art Bianchi on 05-13-2022 GFR/1.73 sq M.predicted among non-blacks MDRD (S/P/Bld) [Vol rate/Area] > 60 mL/Min [facility] Globulin Calc (S) [Mass/Vol] Ordered By: Art Bianchi on 05-13-2022 Globulin (S) [Mass/Vol] 2.7 g/dL [facility] HCG ( test) IA.rapi d Ql (U)Ordered By: Art Bianchi on 05-13-2022 HCG ( test) Ql (U) Negative [facility] Hematocrit Auto (Bld) [Volum e fraction]Ordered By: Art Bianchi on 05-13-2022 Hematocrit (Bld) [Volume fraction] 40.5 % 36.0-46.0 [facility] Ketones Auto test strip (U) [Mass/Vol]Ordered By: Atr Bianchi on 05-13-2022 Ketones (U) [Mass/Vol] Trace Negative [facility] Laboratory - Hematology and Cell countsOrdered By: Art Bianchi on 05-13-2022 Nucleated RBC/100 WBC (Bld) [Ratio] 0.0 % 0-0.5 [facility] Laboratory - UrinalysisOrder ed By: Art Bianchi on 05-13-2022 Hyaline casts LM Ql (Urine sed) 0-8 [LPF] 0-8 [facility] Lymphocytes Auto (Bld) [#/Vo l]Ordered By: Art Bianchi on 05-13-2022 Lymphocytes (Bld) [#/Vol] 1.4 10*3/uL 1.20-4.8 [facility] Lymphocytes/100 WBC Auto (Bl d)Ordered By: Art Bianchi on 05-13-2022 Lymphocytes/100 WBC (Bld) 13.1 % . [facility] MCH Auto (RBC) [Entitic mass ]Ordered By: Art Bianchi on 05-13-2022 MCH (RBC) [Entitic mass] 28.6 pg 25.0-35.0 [facility] MCHC Auto (RBC) [Mass/Vol]Or dered By: Art Bianchi on 05-13-2022 MCHC (RBC) [Mass/Vol] 33.7 g/dL 31.0-37.0 [facility] MCV Auto (RBC) [Entitic vol] Ordered By: Art Bianchi on 05-13-2022 MCV (RBC) [Entitic vol] 84.7 fL 78-102 [facility] Monocytes Auto (Bld) [#/Vol] Ordered By: Art Bianchi on 05-13-2022 Monocytes (Bld) [#/Vol] 0.4 10*3/uL 0.1-1.00 [facility] Monocytes/100 WBC Auto (Bld) Ordered By: Art Bianchi on 05-13-2022 Monocytes/100 WBC (Bld) 4.2 % . [facility] Neutrophils Auto (Bld) [#/Vo l]Ordered By: Art Bianchi on 05-13-2022 Neutrophils (Bld) [#/Vol] 8.0 10*3/uL 1.2-7.7 [facility] Neutrophils/100 WBC Auto (Bl d)Ordered By: Art Bianchi on 05-13-2022 Neutrophils/100 WBC (Bld) 77.1 % . [facility] Nitrite Test strip Ql (U)Ord ered By: Art Bianchi on 05-13-2022 Nitrite Ql (U) Negative Negative [facility] No Panel InformationOrdered By: Art Bianchi on 05-13-2022 Estimated GFR () > 60 mL/Min [facility] Comment on above: GFR estimated refere nce range: According to KDOQI guidelines, <60 ml/min/1.73m2 is sufficient to diagnose a patient with chronic kidney disease. Pharmacy Creatinine Clearance (Chem 112.80 [facility] Platelet mean volume Auto (B ld) [Entitic vol]Ordered By: Art Bianchi on 05-13-2022 Platelet mean volume (Bld) [Entitic vol] 8.6 fL 6.3-10.7 [facility] Platelets Auto (Bld) [#/Vol] Ordered By: Art Bianchi on 05-13-2022 Platelets (Bld) [#/Vol] 264 10*3/uL 150-450 [facility] Protein Auto test strip (U) [Mass/Vol]Ordered By: Art Bianchi on 05-13-2022 Protein (U) [Mass/Vol] 30 mg/dL Negative Fi [facility] Protein [Mass/volume] in Ser um or PlasmaOrdered By: Art Bianchi on 05-13-2022 Protein [Mass/Vol] 7.0 g/dL 6.1-7.9 [facility] RBC Auto (Bld) [#/Vol]Ordere d By: Art Bianchi on 05-13-2022 RBC (Bld) [#/Vol] 4.78 10*6/uL 4.10-5.10 [facility] Serum or plasma alanine florez otransferase measurement without P-5'-P (enzymatic activiOrdered By: Art Bianchi on 05-13-2022 ALT No additional P-5'-P [Catalytic activity/Vol] 19 U/L 10-60 [facility] Serum or plasma albumin/glob ulin mass ratioOrdered By: Art Bianchi on 05-13-2022 Albumin/Globulin [Mass ratio] 1.6 {ratio} [facility] Serum or plasma alkaline justin sphatase measurement (enzymatic activity/volume)Ordered By: Art Bianchi on 05-13-2022 ALP [Catalytic activity/Vol] 69 U/L 32-92 [facility] Serum or plasma aspartate am inotransferase measurement (enzymatic activity/volume)Ordered By: Art Bianchi on 05-13-2022 AST [Catalytic activity/Vol] 19 U/L 10-42 [facility] Serum or plasma calcium tammy urement (mass/volume)Ordered By: Art Bianchi on 05-13-2022 Calcium [Mass/Vol] 9.9 mg/dL 8.2-10.2 [facility] Serum or plasma chloride judy surement (moles/volume)Ordered By: Art Bianchi on 05-13-2022 Chloride [Moles/Vol] 107 mmol/L 95-114 [facility] Serum or plasma glucose tammy urement (mass/volume)Ordered By: Art Bianchi on 05-13-2022 Glucose [Mass/Vol] 140 mg/dL 70-100 [facility] Comment on above: ADA recommended refe rence range Random Glucose Reference Range is dependent on time and content of last meal. Glucose of more than 200 mg/dL in a nonstressed, ambulatory subject supports the diagnosis of Diabetes Mellitus. Serum or plasma potassium me asurement (moles/volume)Ordered By: Art Bianchi on 05-13-2022 Potassium [Moles/Vol] 3.7 mmol/L 3.5-5.1 [facility] Serum or plasma sodium measu rement (moles/volume)Ordered By: Art Bianchi on 05-13-2022 Sodium [Moles/Vol] 138 mmol/L 136-146 [facility] Serum or plasma total biliru bin measurement (mass/volume)Ordered By: Art Bianchi on 05-13-2022 Bilirubin [Mass/Vol] 0.5 mg/dL 0.3-1.2 [facility] Serum or plasma total carbon dioxide measurement (moles/volume)Ordered By: Art Bianchi on 05-13-2022 CO2 [Moles/Vol] 19.0 mmol/L 22.0-30.0 [facility] Serum or plasma urea nitroge n measurement (mass/volume)Ordered By: Art Bianchi on 05-13-2022 Urea nitrogen [Mass/Vol] 11 mg/dL 9-23 [facility] Specific gravity Auto test s trip (U) [Rel density]Ordered By: Art Bianchi on 05-13-2022 Specific gravity (U) [Rel density] 1.018 1.001-1.03 0 [facility] Squamous epithelial cells de tection in urine sediment by light microscopyOrdered By: Art Bianchi on 05-13-2022 Epithelial cells.squamous LM Ql (Urine sed) 20-30 [HPF] 0-2 [facility] Urine bacteria detection by automated methodOrdered By: Art Bianchi on 05-13-2022 Bacteria Auto Ql (U) 2+ None Seen [facility] Urine clarity by refractomet ry automatedOrdered By: Art Bianchi on 05-13-2022 Clarity Refractometry automated (U) Cloudy Clear [facility] Urine glucose measurement by automated test strip (mass/volume)Ordered By: Art Bianchi on 05-13-2022 Glucose Auto test strip (U) [Mass/Vol] Normal mg/dL Normal [facility] Urine hemoglobin detection b y automated test stripOrdered By: Art Bianchi on 05-13-2022 Hemoglobin Auto test strip Ql (U) Negative Negative [facility] Urine leukocyte esterase det ection by automated test stripOrdered By: Art Bianchi on 05-13-2022 Leukocyte esterase Auto test strip Ql (U) Negative Negative [facility] Urobilinogen Auto test strip (U) [Mass/Vol]Ordered By: Art Bianchi on 05-13-2022 Urobilinogen (U) [Mass/Vol] Normal mg/dL Normal [facility] pH Auto test strip (U)Ordere d By: Art Bianchi on 05-13-2022 pH (U) [pH] 5.0-9.0 [facility] CNPNon 10-10-2021 CNPN Telephone (OTOLMN) PILI PARIKH ([id number]) 3 F Date Time Provider Department 10/10/21 ROLANDO WOOTEN OTOLMN During your visit today, we recorded the following information about you: Rolando Wooten MD 10/10/2021 12:44 PM Signed Spoke with patient. Monospot positive. Waiting on CBC with diff - wbc 10. 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 Ordered further labs as somewhat atypical [...] [B27.80] Order(s):HEPATIC FUNCTION PNL [SQHFP] Order #: [id number] FUTURE HIV 1 2 COMBO(AG/AB),WITH REFLEX TO DIFFERENTIATION [SQHIV12] Order #: [id number] FUTURE CMV IGG/IGM TITER [[id number]] Order #: [id number] FUTURE LISSA-HENSON VCA IGM [SQEBVM] Order #: [id number] FUTURE EBV EA AB IGG [[id number]] Order #: [id number] FUTURE LISSA-HENSON VCA IGG [SQEBVG] Order #: [id number] FUTURE CMV IGG/IGM TITER [[id number]] Order #: [id number] EBV EA AB IGG [[id number]] Order #: [id number] Prescriptions as of 10/27/2021 - HYDROcodone-acetaminophen (HYCET) [...] Status:Closed by ROLANDO WOOTEN on 10/10/21 Normal [facility] AFB Cult and Stainon 021 AFB Cult and Stain Sp. Request/Comment: - Specimen received in sterile container. Smear Result - No acid fast bacilli seen by fluorochrome stain Culture Result - No Acid Fast Bacilli isolated after 46 days Normal [facility] Comment on above: Performed By: #### A FC #### [address] [place], [place] [address] Anaerobe Cultureon 1 Anaerobe Culture Sp. Request/Comment: - Specimen received in sterile container. Culture Result - Few Mixed anaerobic jori --> ABNORMAL ALERT No Bacteroides fragilis group isolated. No Clostridium perfringens isolated Critically abnormal [facility] Comment on above: Performed By: #### A NACUL #### [address] [place], [place] [address] Basic Metabolic Panlon 10-09 Anion gap [Moles/Vol] 14 mmol/L Normal 9-18 [facility] Comment on above: Result Comment: (NOT E) Reference ranges for this patient's age group have not been established. These reference ranges reflect verified or established ranges for the adult population. Interpret these ranges with caution using the clinical context and additional reference resources. Performed By: #### C BCDIF, BMP, MONOLX #### [facility] [address] [place], [place] [address] Calcium [Mass/Vol] 9.4 mg/dL Normal 8.4-10.2 [facility] Comment on above: Performed By: #### C BCDIF, BMP, MONOLX #### [facility] [address] [place], [place] [address] Chloride [Moles/Vol] 99 mmol/L Normal 97-105 [facility] Comment on above: Result Comment: (NOT E) Reference ranges for this patient's age group have not been established. These reference ranges reflect verified or established ranges for the adult population. Interpret these ranges with caution using the clinical context and additional reference resources. Performed By: #### C BCDIFCHRISTEL, MONOLX #### [facility] [employer] [address] [place], [place] [address] CO2 [Moles/Vol] 23 mmol/L Normal 22-30 [facility] Comment on above: Result Comment: (NOT E) Reference ranges for this patient's age group have not been established. These reference ranges reflect verified or established ranges for the adult population. Interpret these ranges with caution using the clinical context and additional reference resources. Performed By: #### C BCDIF BMP, MONOLX #### [facility] [employer] [address] [place], [place] [address] Creatinine [Mass/Vol] 0.64 mg/dL Normal 0.58-0.96 [facility] Comment on above: Result Comment: Refe rence ranges for this patient's age group have not been established. These reference ranges reflect verified or established ranges for the adult population. Interpret these ranges with caution using the clinical context and additional reference resources. Performed By: #### C BCDIFCHRISTEL, MONOLX #### [facility] [employer] [address] [place], [place] [address] eGFR-Ped. Factor 0.65 Normal [facility] Comment on above: Result Comment: eGFR (Estimated [...] for clinical interpretation. Performed By: #### C BCDIFCHRISTEL, MONOLX #### [facility] [employer] [address] [place], [place] [address] Glucose [Mass/Vol] 89 mg/dL Normal 74-99 [facility] Comment on above: Result Comment: Refe rence ranges for this patient's age group have not been established. These reference ranges reflect verified or established ranges for the adult population. Interpret these ranges with caution using the clinical context and additional reference resources. The [place] Diabetes [employer] (ADA) provides guidance for cutoff [...] Standards of Medical Care in Diabetes 2016, [place] [employer]. Diabetes Care. 2016.39(Suppl 1). Performed By: #### C BCDIFCHRISTEL, MONOLX #### [facility] [employer] [address] [place], [place] [address] Potassium [Moles/Vol] 4.4 mmol/L Normal 3.7-5.1 [facility] Comment on above: Result Comment: (NOT E) Reference ranges for this patient's age group have not been established. These reference ranges reflect verified or established ranges for the adult population. Interpret these ranges with caution using the clinical context and additional reference resources. Performed By: #### C BCDIF, BMP, MONOLX #### [facility] [employer] [address] [place], [place] [address] Sodium [Moles/Vol] 136 mmol/L Normal 136-144 [facility] Comment on above: Result Comment: (NOT E) Reference ranges for this patient's age group have not been established. These reference ranges reflect verified or established ranges for the adult population. Interpret these ranges with caution using the clinical context and additional reference resources. Performed By: #### C BCDIF, BMP, MONOLX #### [facility] [employer] [address] [place], [place] [address] Urea nitrogen [Mass/Vol] 8 mg/dL Normal 5-18 [facility] Comment on above: Performed By: #### C BCDIF, BMP, MONOLX #### [facility] [address] [place] [phone] CBC and Differentialon 10-09 Abs Baso 0.11 k/uL High <0.11 [facility] Comment on above: Performed By: #### C BCDIF, BMP, MONOLX #### [place] [phone] Abs Lym 4.27 K/uL High 1.00-4.00 [facility] Comment on above: Performed By: #### C BCDIF, BMP, MONOLX #### [place] [address] Abs [place] 1.10 k/uL High <0.87 [facility] Comment on above: Performed By: #### C BCDIF, BMP, MONOLX #### [address] [phone] Abs Neut 5.37 k/uL Normal 1.45-7.50 [facility] Comment on above: Performed By: #### C BCDIF, BMP, MONOLX #### [place] [address] Basophils/100 WBC (Bld) 1 % Normal [facility] Comment on above: Performed By: #### C BCDIF, BMP, MONOLX #### [place] [phone] Diff Comments SEE COMMENT Normal [facility] Comment on above: Result Comment: Plat elet estimate adequate Performed By: #### C BCDIF, BMP, MONOLX #### [phone] Eosinophils (Bld) [#/Vol] 0.11 10*3/uL Normal <0.46 [facility] Comment on above: Performed By: #### C BCDIF, BMP, MONOLX #### [address] [place], [place] [address] Eosinophils/100 WBC (Bld) 1 % Normal [facility] Comment on above: Performed By: #### C BCDIF, BMP, MONOLX #### [address] [place], [place] [address] Erythrocyte distribution width (RBC) [Ratio] 13.4 % Normal 11.5-15.0 [facility] Comment on above: Performed By: #### C BCDIF, BMP, MONOLX #### [address] [place], [place] [address] Hematocrit (Bld) [Volume fraction] 39.8 % Normal 36.0-46.0 [facility] Comment on above: Performed By: #### C BCDIF, BMP, MONOLX #### [address] [address] Hemoglobin (Bld) [Mass/Vol] 12.5 g/dL Normal 11.5-15.5 [facility] Comment on above: Performed By: #### C BCDIF, BMP, MONOLX #### [address] [address] Lymphocytes/100 WBC (Bld) 39 % Normal [facility] Comment on above: Performed By: #### C BCDIF, BMP, MONOLX #### [address] [place], [place] [address] MCH 27.4 pG Normal 26.0-34.0 [facility] Comment on above: Performed By: #### C BCDIF, BMP, MONOLX #### [address] [place], [place] [address] MCHC (RBC) [Mass/Vol] 31.4 g/dL Normal 30.5-36.0 [facility] Comment on above: Performed By: #### C BCDIF, BMP, MONOLX #### [address] [address] MCV (RBC) [Entitic vol] 87.3 fL Normal 80.0-100.0 [facility] Comment on above: Performed By: #### C BCDIF, BMP, MONOLX #### [facility] [address] [place], [place] [address] Monocytes/100 WBC (Bld) 10 % Normal [facility] Comment on above: Performed By: #### C BCDIF, BMP, MONOLX #### [facility] [address] [place], [place] [address] Neutrophils/100 WBC (Bld) 49 % Normal [facility] Comment on above: Performed By: #### C BCDIF, BMP, MONOLX #### [address] [address] Platelet mean volume (Bld) [Entitic vol] 10.3 fL Normal 9.0-12.7 [facility] Comment on above: Performed By: #### C BCDIF, BMP, MONOLX #### [facility] [address] [place], [place] [address] Platelets (Bld) [#/Vol] 218 10*3/uL Normal 150-400 [facility] Comment on above: Performed By: #### C BCDIF, BMP, MONOLX #### [facility] [address] [place], [place] [address] RBC (Bld) [#/Vol] 4.56 10*6/uL Normal 3.90-5.20 [facility] Comment on above: Performed By: #### C BCDIF, BMP, MONOLX #### [facility] [address] [place], [place] [address] Red Cell Morph SEE COMMENT Normal [facility] Comment on above: Result Comment: Slig ht Polychromasia Few Ovalocytes Performed By: #### C BCDIF, BMP, MONOLX #### [facility] [address] [facility], [place] [address] WBC (Bld) [#/Vol] 10.95 10*3/uL Normal 3.70-11.00 [facility] Comment on above: Performed By: #### C BCDIF, BMP, MONOLX #### [facility] [address] [place], [place] [address] CNOVon 10-09-2021 CNOV Office Visit (OTOLMN ) PILI PARIKH ([id number]) 3 F Date Time Provider Department 10/09/21 [...] Rolando Wooten MD 11/13/2021 1:09 AM Signed [facility] Consult This consult was requested [...] passageways a (more content not included)... Normal [facility] Fungal Cultureon 10-09-2021 Fungal Culture Sp. Request/Comment: - Specimen received in sterile container. Culture Result - No Fungus isolated after 28 days Normal [facility] Comment on above: Performed By: #### F CUL #### [facility] [employer] [place] [address] [place] Slide Teston 10-09-2021 [place] Slide Test Positive Critically abnormal Negative [facility] Comment on above: Performed By: #### C BCDIF, BMP, MONOLX #### [facility] [employer] [address] [place] [address] Wound Culture/Stainon 2020 Wound Culture/Stain Sp. Request/Comment: - Swab Smear Result - Rare Gram positive cocci --> ABNORMAL ALERT Rare Polymorphonuclear leukocytes Culture Result - Rare Mixed oral jori For wound culture, tissue or aspirates are superior to swab specimens. If a swab must be used, eSwab is preferred. Critically abnormal [facility] Comment on above: Performed By: #### W CUL #### [facility] [employer] [address] [place] [address] Discharge Summaryon 08-01-20 18 Discharge Summary Send Summary:Dischar ge Summary Providers:Provider RoleProvider Name? ReferringRadha Unger? PrimaryBuMelida franco? AttendingJonas Mancuso Note Recipients: Melida Daniel MD - [id number] [[id number]]Radha Unger, Jonas Syed MD Discharge: Summary:Admission Date: .23-Jun-2018 01:12:00Discharge Date: 14-Hmy-9014Fhuikazkj Physician at Discharge: Jonas Mancusodmission Reason: Atenolol and tylenol overdose(1)Final Discharge Diagnoses: Other Specified Depressive DisorderProcedures: noneCondition at Discharge: SatisfactoryDisposition at Discharge: .HomeVital Signs: T [id number]/86 Date/Time06/28 9:0806/28 9:0806/28 9:0806/28 9:08Range(36.6C - 36.6C [...] to Schedule in: 1x weekly - Location: [address] [place], [place] [address] Phone Number: phone: [phone] l fax: [phone] Follow-Up Appointment 02: Physician/Dept/Service: Griffin Lazcano Reason for Referral: Case Management Call to Schedule in: 1x weekly Location: [address] [place] [address] Phone Number: phone: [phone] l fax: [phone] Discharge Medications: Home MedicationQvar 80 mcg/inh inhalation [...] Pending: NoneRadiology Results - Pending: None Signature/Cosignature/Attes tation:Changeover Operator Only - Attest to Medical Student/Acting Pharmacy Scheduler documentationAs ateaching institution, we recognize that medical [...] Last Updated: 14-Jul-2018 10:37 by Leidy Nugent ([facility]) [facility] Clinical Event Note-Telephon dedrick 06-27-2018 Clinical Event Note-Telephone Event:Topic: TelephoneDetails:Called and talked to both parents (mom and dad). Updated information aboutpatient clinical status. Also told that that patient is experiencing nightmaresand sleep issues. Mom and dad was given information about the risk and benefitsof medication. In particular this advertising writer talked about clonidine and guanfacineoption. Parent at this time denied adding any medication and said they wouldthink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 ORALLY ONCE A DAY;Therapy: (Recorded:23Sbu0441) to RecordedOndansetron HCl - 8 MG Oral Tablet; TAKE 1 TABLET 3 times daily PRN vomiting;Therapy: 16Dec2017 to (Evaluate:56Nky3139) Requested for: 81Yei3140; LastRx:18Apr2018 OrderedPhenergan 25 MG SUPP; INSERT 1 SUPPOSITORY RECTALLY EVERY 12 HOURS ASNEEDED FOR NAUSEA AND VOMITING;Therapy: 53Nxo0916 to (Last Rx:16Dec2017) Requested for: 16Dec2017 OrderedPredniSONE 20 MG Oral Tablet; Take 3 tablets once daily for 5-7 days. To be used in thesetting of a severe asthma flare-up. Please call the office prior to starting;Therapy: 23Sep2014 to (Last Rx:24Mfb3139) Requested for: 97Nyl9852 OrderedProAir HFA 108 (90 Base) MCG/ACT Inhalation Aerosol Solution; Inhale 2-4 puffs every4-6 hours as needed for cough, wheezing or shortness of breath and prior to exercise;Therapy: 23Sep2014 to (Last Rx:54Fzj9888) Requested for: 24Mar2015 OrderedPromethazine HCl - 25 MG Oral Tablet; 1 tablet orally every 12 hours as needed fornausea/vomiting Requested for: 16Dec2017; Last Rx:16Dec2017 OrderedQvar 80 MCG/ACT Inhalation Aerosol Solution; INHALE TWO PUFFS BY MOUTH TWICEA DAY WITH A SPACER;Therapy: 23Sep2014 to (Last Rx:13Hju2252) Requested for: 55Yiu3215 OrderedTri-Sprintec 0.18/0.215/0.25 MG-35 MCG Oral Tablet;Therapy: 89Ajj4624 to RecordedUnspecified Medication; Vitamin B2-400 Oral Capsule1 capsule orally once a day;Therapy: (Recorded:42Mwp9294) to RecordedVitamin D 1000 UNIT Oral Tablet; TAKE 1 TABLET DAILY;Therapy: 14Apr2018 to (Evaluate:84Kbj7934) Requested for: 18Apr2018; LastRx:18Apr2018 Ordered Signatures Electronically signed by : MICHAEL Durán; Jun 05 2018 10:46AM EST (Author) [facility] Discharge Summaryon 08-24-20 Discharge Summary Send Summary:Dischar ge Summary Providers:Provider Role Provider Name? Referring Dali Mcintosh? Attending Adeola Colon? Primary Zac Daniel Recipients: Adeola Colon MD Baez-Socorro, Virginia M, MD Bumagina, Natalie, MD - [phone] [[id number]]Dali Mcintosh MD - [id number] [Preferred]Discharge:Summar y:Admission Date: .09-Aug-2017 21:44:00Discharge Date: 11-Rhx-1103Eyfkrpifh Physician at Discharge: Adeola Colon NAdmission Reason: vomiting, hematemesisFinal Discharge Diagnoses: Functional abdominal painProcedures: null Aug 11, 2017Condition at Discharge: SatisfactoryDisposition at Discharge: .HomeVital Signs: T P R BP AxY5Kesak 36.6 70 18 126/84 98%Date/Time 08/24 8:58 [...] months, but worse recently. She was admitted [facility] last month for the vomiting. She [...] Saturday September 02, 2017 at3:30 pm. Location: [place] [id number] Ipguis-Up Appointment 02: Physician/Dept/Service: Neurology: Caty Simpson Call to Schedule in: 1st available Scheduled Date/Time: 31-Aug-2017 14:00 Location: [address] [place] [address] Uphhyv-Up Appointment 03: Physician/Dept/Service: ENT (ear, nose, and [...] Updated: 24-Aug-2017 23:59 by Adeola Colon) [facility] PD ABDOMEN, SINGLE VIEWon PD ABDOMEN, [...] gastric body.Electronically signed by: PHYSICIAN CECILIA [facility] NR MRI BRAIN WOon 08-13-2017 NR [...] Chiari malformation. The study was interpreted at [facility].Electronicall y signed by: SABAS GARCIA MD [facility] Surgical Pathology Depar tmenton 08-11-2017 [facility] Surgical Pathology Department Name PILI PARIKH [...] submitted in toto in one cassette.MXWmxw/08/11/2017 [facility] Comment on above: Performed By: #### T 4FRE ####[facility] [place] [address] AMYLASEon 08-10-2017 Amylase enzyme act/vol 19 U/L Normal 18 - 76 [facility] Comment on above: Performed By: #### V TDOH ####[facility] [place] [address] C-REACTIVE PROTEINon 017 CRP mass conc 0.34 mg/dL [facility] Comment on above: Result Comment: REF VALUE< 1.00 Performed By: #### V TDOH ####[facility] [place] [address] CBC AND DIFFERENTIALon 08-10 % AUTOMATED IMMATURE GRAN 0.3 % Normal 0.0 - 1.0 [facility] Comment on above: Result Comment: Perc ent differential counts (%) should be interpreted in the context of the absolute cell counts (cells/L). Performed By: #### V TDOH ####[facility] [place] [address] % NEUTROPHIL 52.9 % Normal 33.0 - 69.0 [facility] Comment on above: Performed By: #### V TDOH ####[facility] [place] [address] Basophils/100 WBC Auto (Bld) 0.4 % Normal 0.0 - 1.0 [facility] Comment on above: Performed By: #### V TDOH ####[facility] [place] [address] Basophils/100 WBC Auto (Bld) 0.03 x10E9/L Normal 0.00 - 0.10 [facility] [facility] Comment on above: Performed By: #### V TDOH ####[facility] [place] [address] Eosinophils Auto #/vol (Bld) 0.29 10*3/uL Normal 0.00 - 0.70 [facility] Comment on above: Performed By: #### V TDOH ####[facility] [place] [address] Eosinophils/100 WBC Auto (Bld) 4.2 % Normal 0.0 - 5.0 [facility] Comment on above: Performed By: #### V TDOH ####[facility] [place] [address] Erythrocyte distribution width Auto Ratio (RBC) 14.1 % Normal 11.5 - 14.5 [facility] Comment on above: Performed By: #### V TDOH ####[facility] [place] [address] Hematocrit Auto Volume Fraction (Bld) 35.4 % Low 36.0 - 46.0 [facility] Comment on above: Performed By: #### V TDOH ####[facility] [place] [address] Hemoglobin mass conc (Bld) 11.0 g/dL Low 12.0 - 16.0 [facility] Comment on above: Performed By: #### V TDOH ####[facility] [place] [address] Lymphocytes Auto #/vol (Bld) 2.33 10*3/uL Normal 1.80 - 4.80 [facility] Comment on above: Performed By: #### V TDOH ####[facility] [place] [address] Lymphocytes/100 WBC Auto (Bld) 33.8 % Normal 28.0 - 48.0 [facility] Comment on above: Performed By: #### V TDOH ####[facility] [place] [address] MCHC Auto mass conc (RBC) 31.1 g/dL Normal 31.0 - 37.0 [facility] Comment on above: Performed By: #### V TDOH ####[facility] [place] [address] MCV Auto Entitic volume (RBC) 80 fL Normal 78 - 102 [facility] Comment on above: Performed By: #### V TDOH ####[facility] [place] [address] Monocytes Auto #/vol (Bld) 0.58 10*3/uL Normal 0.10 - 1.00 [facility] Comment on above: Performed By: #### V TDOH ####[facility] [place] [address] Monocytes/100 WBC Auto (Bld) 8.4 % Normal 3.0 - 9.0 [facility] Comment on above: Performed By: #### V TDOH ####[facility] [place] [address] Neutrophils Auto #/vol (Bld) 3.65 10*3/uL Normal 1.20 - 7.70 [facility] Comment on above: Performed By: #### V TDOH ####[facility] [place] [address] Nucleated RBC/100 WBC Ratio (Bld) 0.0 /100 WBC Normal 0.0-0.0 [facility] Comment on above: Performed By: #### V TDOH ####[facility] [place] [address] Platelets Auto #/vol (Bld) 256 10*3/uL Normal 150 - 400 [facility] Comment on above: Performed By: #### V TDOH ####[facility] [place] [address] RBC Auto #/vol (Bld) 4.40 x10E12/L Normal 4.10 - 5.20 [facility] Comment on above: Performed By: #### V TDOH ####[facility] [place] [address] WBC Auto #/vol (Bld) 6.9 10*3/uL Normal 4.5 - 13.5 [facility] Comment on above: Performed By: #### V TDOH ####[facility] [place] [address] CELIAC DISEASE SEROLOGY PANE Tushar 08-10-2017 GLIADIN ABS, IGA 0 Normal 0 - 14 [facility] Comment on above: Result Comment: Fals e negative Deamidated Gliadin Peptide Antibody, IgA results can occur in patients already adhering to a gluten-free diet or patients with IgA deficiency. Tissue Transglutaminase Antibody, IgA is the preferred test for screening patients with suspected Celiac Disease. Performed By: #### T 4FRE ####[facility] [place] [address] GLIADIN ABS, IGG <1 Normal 0 - 14 [facility] Comment on above: Result Comment: Fals e negative Deamidated Gliadin Peptide Antibody, IgG results can occur in patients already adhering to a gluten-free diet. Tissue Transglutaminase Antibody, IgA is the preferred test for screening patients with suspected Celiac Disease. Performed By: #### T 4FRE ####[facility] [place] [address] TTG AB,IGA <1 Normal 0 - 14 [facility] Comment on above: Result Comment: Loni ac disease is unlikely. False negative Tissue Transglutaminase Antibody, IgA results can occur in approximately 10% of patients with celiac disease, patients already adhering to a gluten-free diet, or patients with IgA deficiency. Performed By: #### T 4FRE ####[facility] [place] [address] TTG AB,IGG <1 Normal 0 - 14 [facility] Comment on above: Result Comment: Fals e negative Tissue Transglutaminase Antibody, IgG results can occur in patients already adhering to a gluten-free diet. Tissue Transglutaminase Antibody, IgA is the preferred test for screening patients with suspected Celiac Disease. Performed By: #### T 4FRE ####[facility] [place] [address] COAGULATION SCREENon 017 aPTT Coag time (Bld) 28 s Normal 25 - 36 [facility] Comment on above: Result Comment: THE APTT IS NO LONGER USED FOR MONITORING UNFRACTIONATED HEPARIN THERAPY. FOR MONITORING HEPARIN THERAPY, USE THE HEPARIN ASSAY. Performed By: #### V TDOH ####[facility] [place] [address] INR Coag RelTime (PPP) 1.1 {INR} Normal 0.9 - 1.1 [facility] Comment on above: Performed By: #### V TDOH ####[facility] [place] [address] Prothrombin time (PT) Coag time (PPP) 12.1 s Normal 9.8 - 12.7 [facility] Comment on above: Performed By: #### V TDOH ####[facility] [place] [address] HEPATIC FUNCTION PANELon ALP enzyme act/vol 128 U/L Normal 52 - 239 [facility] Comment on above: Performed By: #### V TDOH ####[facility] [place] [address] ALT enzyme act/vol 39 U/L High 3 - 28 [facility] Comment on above: Result Comment: [facility] ents treated with Sulfasalazine may generate falsely decreased results for ALT. Performed By: #### V TDOH ####[facility] [place] [address] AST enzyme act/vol 27 U/L High 9 - 24 [facility] Comment on above: Performed By: #### V TDOH ####[facility] [place] [address] Bilirubin mass conc 0.4 mg/dL Normal 0.0 - 0.9 [facility] Comment on above: Performed By: #### V TDOH ####[facility] [place] [address] Bilirubin.direct mass conc 0.1 mg/dL Normal 0.0 - 0.3 [facility] Comment on above: Performed By: #### V TDOH ####[facility] [place] [address] Protein mass conc 5.7 g/dL Low 6.2 - 7.7 [facility] Comment on above: Performed By: #### V TDOH ####[facility] [place] [address] LIPASEon 08-10-2017 Lipase enzyme act/vol 16 U/L Normal 9 - 82 [facility] Comment on above: Result Comment: Shanda puncture immediately after or during the administration of Metamizole may lead to falsely low results. Testing should be performed immediately prior to Metamizole dosing. Performed By: #### V TDOH ####[facility] [place] [address] RENAL FUNCTION PANELon 08-10 Albumin mass conc 3.8 g/dL Normal 3.4 - 5.0 [facility] Comment on above: Performed By: #### T 4FRE ####[facility] [place] [address] Performed By: #### V TDOH ####[facility] [place] [address] Anion gap 3 molar conc 13 mmol/L Normal 10 - 30 [facility] Comment on above: Performed By: #### T 4FRE ####[facility] [place] [address] Calcium mass conc 9.2 mg/dL Normal 8.5 - 10.7 [facility] Comment on above: Performed By: #### T 4FRE ####[facility] [place] [address] Chloride molar conc 106 mmol/L Normal 98 - 107 [facility] Comment on above: Performed By: #### T 4FRE ####[facility] [place] [address] Creatinine mass conc 0.56 mg/dL Normal 0.50 - 1.00 [facility] Comment on above: Performed By: #### T 4FRE ####[facility] [place] [address] Glucose mass conc 106 mg/dL High 74 - 99 [facility] Comment on above: Performed By: #### T 4FRE ####[facility] [place] [address] HCO3 molar conc (Bld) 26 mmol/L Normal 18 - 27 [facility] Comment on above: Performed By: #### T 4FRE ####[facility] [place] [address] Phosphate mass conc 4.3 mg/dL Normal 3.0 - 5.4 [facility] Comment on above: Result Comment: The performance characteristics of phosphorus testing in heparinized plasma have been validated by the individual laboratory site where testing is performed. Testing on heparinized plasma is not approved by the FDA; however, such approval is not necessary. Performed By: #### T 4FRE ####[facility] [place] [address] Potassium molar conc 3.9 mmol/L Normal 3.5 - 5.3 [facility] Comment on above: Performed By: #### T 4FRE ####[facility] [place] [address] Sodium molar conc 141 mmol/L Normal 136 - 145 [facility] Comment on above: Performed By: #### T 4FRE ####[facility] [place] [address] Urea nitrogen mass conc 11 mg/dL Normal 6 - 23 [facility] Comment on above: Performed By: #### T 4FRE ####[facility] [place] [address] AMYLASEon 08-09-2017 Amylase enzyme act/vol 22 U/L Normal 18 - 76 [facility] Comment on above: Performed By: #### A MY ####[facility] [place] [address] C-REACTIVE PROTEINon 017 CRP mass conc 0.36 mg/dL Normal [facility] Comment on above: Result Comment: REF VALUE< 1.00 Performed By: #### C RP ####[facility] [facility] [address] CBC AND DIFFERENTIALon 08-09 % AUTOMATED IMMATURE GRAN 0.3 % Normal 0.0 - 1.0 [facility] Comment on above: Result Comment: Perc ent differential counts (%) should be interpreted in the context of the absolute cell counts (cells/L). Performed By: #### C BCDF ####[facility] [place] [address] % NEUTROPHIL 60.6 % Normal 33.0 - 69.0 [facility] Comment on above: Performed By: #### C BCDF ####[facility] [place] [address] Basophils/100 WBC Auto (Bld) 0.04 x10E9/L Normal 0.00 - 0.10 [facility] Comment on above: Performed By: #### C BCDF ####[facility] [place] [address] Basophils/100 WBC Auto (Bld) 0.5 % Normal 0.0 - 1.0 [facility] Comment on above: Performed By: #### C BCDF ####[facility] [place] [address] Eosinophils Auto #/vol (Bld) 0.28 10*3/uL Normal 0.00 - 0.70 [facility] Comment on above: Performed By: #### C BCDF ####[facility] [place] [address] Eosinophils/100 WBC Auto (Bld) 3.6 % Normal 0.0 - 5.0 [facility] Comment on above: Performed By: #### C BCDF ####[facility] [place] [address] Erythrocyte distribution width Auto Ratio (RBC) 14.4 % Normal 11.5 - 14.5 [facility] Comment on above: Performed By: #### C BCDF ####[facility] [place] [address] Hematocrit Auto Volume Fraction (Bld) 37.7 % Normal 36.0 - 46.0 [facility] Comment on above: Performed By: #### C BCDF ####[facility] [place] [address] Hemoglobin mass conc (Bld) 11.5 g/dL Low 12.0 - 16.0 [facility] Comment on above: Performed By: #### C BCDF ####[facility] [place] [address] Lymphocytes Auto #/vol (Bld) 2.20 10*3/uL Normal 1.80 - 4.80 [facility] Comment on above: Performed By: #### C BCDF ####[facility] [place] [address] Lymphocytes/100 WBC Auto (Bld) 28.2 % Normal 28.0 - 48.0 [facility] Comment on above: Performed By: #### C BCDF ####[facility] [place] [address] MCHC Auto mass conc (RBC) 30.5 g/dL Low 31.0 - 37.0 [facility] Comment on above: Performed By: #### C BCDF ####[facility] [place] [address] MCV Auto Entitic volume (RBC) 82 fL Normal 78 - 102 [facility] Comment on above: Performed By: #### C BCDF ####[facility] [place] [address] Monocytes Auto #/vol (Bld) 0.53 10*3/uL Normal 0.10 - 1.00 [facility] Comment on above: Performed By: #### C BCDF ####[facility] [place] [address] Monocytes/100 WBC Auto (Bld) 6.8 % Normal 3.0 - 9.0 [facility] Comment on above: Performed By: #### C BCDF ####[facility] [place] [address] Neutrophils Auto #/vol (Bld) 4.73 10*3/uL Normal 1.20 - 7.70 [facility] Comment on above: Performed By: #### C BCDF ####[facility] [place] [address] Nucleated RBC/100 WBC Ratio (Bld) 0.0 /100 WBC Normal 0.0-0.0 [facility] Comment on above: Performed By: #### C BCDF ####[facility] [place] [address] Platelets Auto #/vol (Bld) 290 10*3/uL Normal 150 - 400 [facility] Comment on above: Performed By: #### C BCDF ####[facility] [place] [address] RBC Auto #/vol (Bld) 4.62 x10E12/L Normal 4.10 - 5.20 [facility] Comment on above: Performed By: #### C BCDF ####[facility] [place] [address] WBC Auto #/vol (Bld) 7.8 10*3/uL Normal 4.5 - 13.5 [facility] Comment on above: Performed By: #### C BCDF ####[facility] [place] [address] COAGULATION SCREENon 017 aPTT Coag time (Bld) 29 s Normal 25 - 36 [facility] Comment on above: Result Comment: THE APTT IS NO LONGER USED FOR MONITORING UNFRACTIONATED HEPARIN THERAPY. FOR MONITORING HEPARIN THERAPY, USE THE HEPARIN ASSAY. Performed By: #### V TDOH ####[facility] [place] [address] INR Coag RelTime (PPP) 1.2 {INR} High 0.9 - 1.1 [facility] Comment on above: Performed By: #### V TDOH ####[facility] [place] [address] Prothrombin time (PT) Coag time (PPP) 12.9 s High 9.8 - 12.7 [facility] Comment on above: Performed By: #### V TDOH ####[facility] [place] [address] ESR-WESTERGRENon 08-09-2017 ESR-WESTERGREN 8 mm/h Normal 0 - 13 [facility] Comment on above: Performed By: #### V TDOH ####[facility] [place] [address] GGTon 08-09-2017 GGT 20 U/L Normal 5 - 20 [facility] Comment on above: Performed By: #### G GT ####[facility] [place] [address] HEMOGLOBIN A1Con 08-09-2017 Hemoglobin A1c/Hemoglobin.total mass fraction (Bld) 5.6 % Normal [facility] Comment on above: Result Comment: Diag nosis of Diabetes-Adults Non-Diabetic: < or = 5.6% Increased risk for developing diabetes: 5.7-6.4% Diagnostic of diabetes: > or = 6.5%. Monitoring of Diabetes Age (y) Therapeutic Goal (%) Adults: >18 <7.0 Pediatrics: 13-18 <7.5 7-12 <8.0 0- 6 7.5-8.5 [employer]. Diabetes Care 33(S1), Nov 2009. Performed By: #### V TDOH ####[facility] [place] [address] HEPATIC FUNCTION PANELon ALP enzyme act/vol 133 U/L Normal 52 - 239 [facility] Comment on above: Performed By: #### H EPFP ####[facility] [place] [address] ALT enzyme act/vol 41 U/L High 3 - 28 [facility] Comment on above: Result Comment: [facility] ents treated with Sulfasalazine may generate falsely decreased results for ALT. Performed By: #### H EPFP ####[facility] [place] [address] AST enzyme act/vol 25 U/L High 9 - 24 [facility] Comment on above: Performed By: #### H EPFP ####[facility] [place] [address] Bilirubin mass conc 0.3 mg/dL Normal 0.0 - 0.9 [facility] Comment on above: Performed By: #### H EPFP ####[facility] [place] [address] Bilirubin.direct mass conc 0.1 mg/dL Normal 0.0 - 0.3 [facility] Comment on above: Performed By: #### H EPFP ####[facility] [place] [address] Protein mass conc 6.7 g/dL Normal 6.2 - 7.7 [facility] Comment on above: Performed By: #### H EPFP ####[facility] [place] [address] IRON + TIBCon 08-09-2017 % SATURATION 13 % Low 25 - 45 [facility] Comment on above: Performed By: #### I RONT ####[facility] [place] [address] Iron mass conc 53 ug/dL Normal 23 - 138 [facility] Comment on above: Performed By: #### I RONT ####[facility] [place] [address] TIBC 407 ug/dL Normal 240 - 445 [facility] Comment on above: Performed By: #### I RONT ####[facility] [place] [address] LIPASEon 08-09-2017 Lipase enzyme act/vol 17 U/L Normal 9 - 82 [facility] Comment on above: Result Comment: Shanda puncture immediately after or during the administration of Metamizole may lead to falsely low results. Testing should be performed immediately prior to Metamizole dosing. Performed By: #### L IPAS ####[facility] [place] [address] RENAL FUNCTION PANELon 08-09 Albumin mass conc 4.3 g/dL Normal 3.4 - 5.0 [facility] Comment on above: Performed By: #### V TDOH ####[facility] [place] [address] Performed By: #### H EPFP ####[facility] [place] [address] Anion gap 3 molar conc 13 mmol/L Normal 10 - 30 [facility] Comment on above: Performed By: #### V TDOH ####[facility] [place] [address] Calcium mass conc 9.5 mg/dL Normal 8.5 - 10.7 [facility] Comment on above: Performed By: #### V TDOH ####[facility] [place] [address] Chloride molar conc 105 mmol/L Normal 98 - 107 [facility] Comment on above: Performed By: #### V TDOH ####[facility] [place] [address] Creatinine mass conc 0.50 mg/dL Normal 0.50 - 1.00 [facility] Comment on above: Performed By: #### V TDOH ####[facility] [place] [address] Glucose mass conc 83 mg/dL Normal 74 - 99 [facility] Comment on above: Performed By: #### V TDOH ####[facility] [place] [address] HCO3 molar conc (Bld) 27 mmol/L Normal 18 - 27 [facility] Comment on above: Performed By: #### V TDOH ####[facility] [place] [address] Phosphate mass conc 4.1 mg/dL Normal 3.0 - 5.4 [facility] Comment on above: Result Comment: The performance characteristics of phosphorus testing in heparinized plasma have been validated by the individual laboratory site where testing is performed. Testing on heparinized plasma is not approved by the FDA; however, such approval is not necessary. Performed By: #### V TDOH ####[facility] [place] [address] Potassium molar conc 4.1 mmol/L Normal 3.5 - 5.3 [facility] Comment on above: Performed By: #### V TDOH ####[facility] [place] [address] Sodium molar conc 141 mmol/L Normal 136 - 145 [facility] Comment on above: Performed By: #### V TDOH ####[facility] [place] [address] Urea nitrogen mass conc 11 mg/dL Normal 6 - 23 [facility] Comment on above: Performed By: #### V TDOH ####[facility] [place] [address] THYROXINE,FREEon 08-09-2017 THYROXINE,FREE 1.08 ng/dL Normal 0.78 - 1.48 [facility] Comment on above: Result Comment: Thyr oxine Free testing is performed using different testing methodology at [facility] than at other [facility]. Direct result comparisons should only be made within the same method.. Patients receiving more than 5 mg/day of biotin may have interference in test results. A sample should be taken no sooner than eight hours after previous dose. Contact [phone] for additional information. Performed By: #### T 4FRE ####[facility] [place] [address] TSHon 08-09-2017 Thyrotropin Qn 1.71 m[IU]/L Normal 0.44 - 3.98 [facility] Comment on above: Result Comment: TSH testing is performed using different testing methodology at [facility] than at other [facility]. Direct result comparisons should only be made within the same method.. Patients receiving more than 5 mg/day of biotin may have interference in test results. A sample should be taken no sooner than eight hours after previous dose. Contact [phone] for additional information. Performed By: #### T SH2 ####[facility] [place] [address] VITAMIN D, 25-HYDROXYon 07-29 VITAMIN D, 25-HYDROXY 28 ng/mL Abnormal [facility] Comment on above: Result Comment: .DEF ICIENCY: < 20 NG/MLINSUFFICIENCY: 20-29 NG/MLOPTIMUM LEVEL: 30-80 NG/MLPOSSIBLE TOXICITY: > 80 NG/MLTHIS ASSAY ACCURATELY QUANTIFIES THE SUM OFVITAMIN D3, 25-HYDROXY AND VIT D2,25-HYDROXY. Performed By: #### V TDOH ####[facility] [place] [address] Vital Signs Date Time Vital Sign Value Performing Clinician Facility 01-16-2025 20:30-0500 Heart rate 51 /min [facility] 01-16-2025 20:30-0500 Respiratory rate 12 /min [facility] 01-16-2025 20:30-0500 SaO2% (BldA) [Mass fraction] 98 % [facility] 01-16-2025 19:30-0500 Diastolic blood pressure 105 mm[Hg] [facility] 01-16-2025 19:30-0500 Heart rate 48 /min [facility] 01-16-2025 19:30-0500 Mean blood pressure 115 mm[Hg] [facility] 01-16-2025 19:30-0500 Respiratory rate 13 /min [facility] 01-16-2025 19:30-0500 SaO2% (BldA) [Mass fraction] 98 % [facility] 01-16-2025 19:30-0500 Systolic blood pressure 135 mm[Hg] [facility] 01-16-2025 17:53-0500 Body temperature 99.14 [degF] [facility] 01-16-2025 17:53-0500 Diastolic blood pressure 71 mm[Hg] [facility] 01-16-2025 17:53-0500 Heart rate 64 /min [facility] 01-16-2025 17:53-0500 Respiratory rate 20 /min [facility] 01-16-2025 17:53-0500 SaO2% (BldA) [Mass fraction] 100 % [facility] 01-16-2025 17:53-0500 Systolic blood pressure 129 mm[Hg] [facility] 08-03-2024 23:10-0400 Diastolic blood pressure 68 mm[Hg] [facility] Work Phone: [facility] 08-03-2024 23:10-0400 Heart rate 95 /min [facility] Work Phone: [facility] 08-03-2024 23:10-0400 Respiratory rate 18 /min [facility] Work Phone: [facility] 08-03-2024 23:10-0400 SaO2% (BldA) [Mass fraction] 99 % [facility] Work Phone: [facility] 08-03-2024 23:10-0400 Systolic blood pressure 115 mm[Hg] [facility] Work Phone: [facility] 08-03-2024 20:35-0400 Body height 157.48 cm [facility] Work Phone: [facility] 08-03-2024 20:35-0400 Body temperature 99.1 [degF] [facility] Work Phone: [facility] 08-03-2024 20:35-0400 Body weight 90.71 kg [facility] Work Phone: [facility] 07-30-2024 22:55-0400 Diastolic blood pressure 72 mm[Hg] Cresencio Colten [facility] 07-30-2024 22:55-0400 Heart rate 50 /min Cresencio Colten [facility] 07-30-2024 22:55-0400 Mean blood pressure 83 mm[Hg] Cresencio Colten [facility] 07-30-2024 22:55-0400 Respiratory rate 16 /min Cresencio Colten [facility] 07-30-2024 22:55-0400 SaO2% (BldA) [Mass fraction] 98 % Cresencio Colten [facility] 07-30-2024 22:55-0400 Systolic blood pressure 104 mm[Hg] Cresencio Colten [facility] 07-30-2024 19:28-0400 Body temperature 98.06 [degF] Cresencio Colten [facility] 07-30-2024 19:28-0400 Diastolic blood pressure 76 mm[Hg] Cresencio Colten [facility] 07-30-2024 19:28-0400 Heart rate 55 /min Cresencio Abel [facility] 07-30-2024 19:28-0400 Respiratory rate 16 /min Cresencio Abel [facility] 07-30-2024 19:28-0400 SaO2% (BldA) [Mass fraction] 97 % Cresencio Abel [facility] 07-30-2024 19:28-0400 Systolic blood pressure 118 mm[Hg] Cresencio Abel [facility] 03-19-2024 00:10-0400 Diastolic blood pressure 90 mm[Hg] [facility] Work Phone: [facility] 03-19-2024 00:10-0400 Heart rate 110 /min [facility] Work Phone: [facility] 03-19-2024 00:10-0400 Respiratory rate 18 /min [facility] Work Phone: [facility] 03-19-2024 00:10-0400 SaO2% (BldA) [Mass fraction] 100 % [facility] Work Phone: [facility] 03-19-2024 00:10-0400 Systolic blood pressure 144 mm[Hg] [facility] Work Phone: [facility] 03-18-2024 22:03-0400 Body height 160.02 cm [facility] Work Phone: [facility] 03-18-2024 22:03-0400 Body temperature 98.3 [degF] [facility] Work Phone: [facility] 03-18-2024 22:03-0400 Body weight 92.2 kg [facility] Work Phone: [facility] 03-15-2024 13:43-0400 Diastolic blood pressure 89 mm[Hg] August Beck [facility] 03-15-2024 13:43-0400 Heart rate 51 /min [facility] 03-15-2024 13:43-0400 Mean blood pressure 107 mm[Hg] [facility] 03-15-2024 13:43-0400 Respiratory rate 16 /min [facility] 03-15-2024 13:43-0400 SaO2% (BldA) [Mass fraction] 100 % [facility] 03-15-2024 13:43-0400 Systolic blood pressure 144 mm[Hg] [facility] 03-15-2024 12:01-0400 Diastolic blood pressure 87 mm[Hg] [facility] 03-15-2024 12:01-0400 Heart rate 52 /min [facility] 03-15-2024 12:01-0400 Mean blood pressure 107 mm[Hg] [facility] 03-15-2024 12:01-0400 SaO2% (BldA) [Mass fraction] 100 % [facility] 03-15-2024 12:01-0400 Systolic blood pressure 148 mm[Hg] [facility] 03-15-2024 10:35-0400 Body temperature 97.52 [degF] [facility] 03-15-2024 10:35-0400 Diastolic blood pressure 86 mm[Hg] [facility] 03-15-2024 10:35-0400 Heart rate 60 /min [facility] 03-15-2024 10:35-0400 Respiratory rate 18 /min [facility] 03-15-2024 10:35-0400 SaO2% (BldA) [Mass fraction] 98 % [facility] 03-15-2024 10:35-0400 Systolic blood pressure 143 mm[Hg] [facility] 03-13-2024 22:00-0400 Diastolic blood pressure 105 mm[Hg] Jacinto Jessie [facility] 03-13-2024 22:00-0400 Heart rate 53 /min Jacinto Jessie [facility] 03-13-2024 22:00-0400 Mean blood pressure 117 mm[Hg] Jacinto Jessie [facility] 03-13-2024 22:00-0400 SaO2% (BldA) [Mass fraction] 100 % Jacinto Jessie [facility] 03-13-2024 22:00-0400 Systolic blood pressure 140 mm[Hg] Jacinto Jessie [facility] 03-13-2024 21:00-0400 Diastolic blood pressure 106 mm[Hg] Jacinto Jessie [facility] 03-13-2024 21:00-0400 Heart rate 93 /min Jacinto Jessie [facility] 03-13-2024 21:00-0400 Mean blood pressure 119 mm[Hg] Jacinto Jessie [facility] 03-13-2024 21:00-0400 Respiratory rate 21 /min Jacinto Jessie [facility] 03-13-2024 21:00-0400 SaO2% (BldA) [Mass fraction] 98 % Jacinto Jessie [facility] 03-13-2024 21:00-0400 Systolic blood pressure 144 mm[Hg] Jacinto Jessie [facility] 03-13-2024 20:00-0400 Diastolic blood pressure 103 mm[Hg] Jacinto Jessie [facility] 03-13-2024 20:00-0400 Heart rate 50 /min Jacinto Jessie [facility] 03-13-2024 20:00-0400 Mean blood pressure 120 mm[Hg] Jacinto Roman [facility] 03-13-2024 20:00-0400 Systolic blood pressure 153 mm[Hg] Jacinto Ernandeze [facility] 03-13-2024 19:38-0400 Respiratory rate 14 /min Jacinto Ernandeze [facility] 03-13-2024 18:36-0400 Respiratory rate 18 /min Jacinto Ernandeze [facility] 03-13-2024 17:51-0400 Body temperature 98.24 [degF] Jacinto Ernandeze [facility] 03-13-2024 17:36-0400 Body temperature 98.24 [degF] Jacinto Roman [facility] 03-13-2024 17:36-0400 Heart rate 61 /min Jacinto Ernandeze [facility] 03-13-2024 17:36-0400 Respiratory rate 18 /min Jacinto Roman [facility] 07-31-2023 18:09-0400 Body height 157.48 cm [facility] Work Phone: [facility] 07-31-2023 18:09-0400 Body temperature 98.6 [degF] [facility] Work Phone: [facility] 07-31-2023 18:09-0400 Body weight 84 kg [facility] Work Phone: [facility] 07-31-2023 18:09-0400 Diastolic blood pressure 106 mm[Hg] Services [employer] [facility] Work Phone: [facility] 07-31-2023 18:09-0400 Heart rate 87 /min Services [email or web address] Work Phone: [facility] 07-31-2023 18:09-0400 Respiratory rate 18 /min [facility] Work Phone: [facility] 07-31-2023 18:09-0400 SaO2% (BldA) [Mass fraction] 98 % [facility] Work Phone: [facility] 07-31-2023 18:09-0400 Systolic blood pressure 150 mm[Hg] [facility] Work Phone: [facility] 05-25-2023 13:11-0400 Diastolic blood pressure 96 mm[Hg] [facility] Work Phone: [facility] 05-25-2023 13:11-0400 Heart rate 60 /min [facility] Work Phone: [facility] 05-25-2023 13:11-0400 Respiratory rate 16 /min [facility] Work Phone: [facility] 05-25-2023 13:11-0400 SaO2% (BldA) [Mass fraction] 97 % [facility] Work Phone: [facility] 05-25-2023 13:11-0400 Systolic blood pressure 160 mm[Hg] [facility] Work Phone: [facility] 05-25-2023 11:56-0400 Inhaled oxygen flow rate 6 L/min [facility] Work Phone: [facility] 05-25-2023 11:54-0400 Body temperature 97.2 [degF] [facility] Work Phone: [facility] 05-25-2023 09:39-0400 Body height 160.02 cm [facility] Work Phone: [facility] 05-25-2023 09:39-0400 Body mass index (BMI) [Percentile] Per age and sex 96.6 % [facility] Work Phone: [facility] 05-25-2023 09:39-0400 Body mass index (BMI) [Ratio] 33.6 kg/m2 Services [email or web address] Work Phone: [facility] 05-25-2023 09:39-0400 Body weight 86.18 kg Services [email or web address] Work Phone: [facility] 05-23-2023 08:00-0400 Body height 157.48 cm Colten Olexa Other [employer] [facility] [employer] Other 05-23-2023 08:00-0400 Body mass index (BMI) [Ratio] 34.75 kg/m2 Colten Olexa Other [facility] [employer] Other 05-23-2023 08:00-0400 Body weight 86.18 kg Colten Olexa Other [employer] [facility] [employer] Other 01-07-2023 14:08-0500 Body height 157.48 cm Services [facility] [employer] Work Phone: [facility] 01-07-2023 12:34-0500 Body temperature 98.1 [degF] Services [facility] [employer] Work Phone: [facility] 01-07-2023 12:34-0500 Diastolic blood pressure 86 mm[Hg] Services [facility] [employer] Work Phone: [facility] 01-07-2023 12:34-0500 Heart rate 75 /min Services [facility] [employer] Work Phone: [facility] 01-07-2023 12:34-0500 SaO2% (BldA) [Mass fraction] 100 % Services [facility] [employer] Work Phone: [facility] 01-07-2023 12:34-0500 Systolic blood pressure 147 mm[Hg] Services [facility] [employer] Work Phone: [facility] 01-07-2023 11:57-0500 Respiratory rate 18 /min Services [facility] [employer] Work Phone: [facility] 01-07-2023 06:00-0500 Body weight 78.2 kg [facility] Work Phone: [facility] 01-06-2023 18:29-0500 Diastolic blood pressure 82 mm[Hg] Services [facility] Work Phone: [facility] 01-06-2023 18:29-0500 Heart rate 64 /min Services [facility] Work Phone: [facility] 01-06-2023 18:29-0500 Respiratory rate 16 /min Services [facility] Work Phone: [facility] 01-06-2023 18:29-0500 SaO2% (BldA) [Mass fraction] 98 % Services [facility] Work Phone: [facility] 01-06-2023 18:29-0500 Systolic blood pressure 139 mm[Hg] Services [facility] Senior Work Phone: [facility] 01-06-2023 11:12-0500 Body height 157.48 cm Services [facility] Work Phone: [facility] 01-06-2023 11:12-0500 Body temperature 98 [degF] Services [facility] Senior Work Phone: [facility] 01-06-2023 11:12-0500 Body weight 77.11 kg Services [facility] Senior Work Phone: [facility] 01-02-2023 04:00-0500 Heart rate 62 /min Services [facility] Senior Work Phone: [facility] 01-02-2023 04:00-0500 Respiratory rate 18 /min Services [facility] Senior Work Phone: [facility] 01-02-2023 04:00-0500 SaO2% (BldA) [Mass fraction] 100 % Services [facility] Senior Work Phone: [facility] 01-02-2023 02:37-0500 Diastolic blood pressure 85 mm[Hg] Services [facility] Senior Work Phone: [facility] 01-02-2023 02:37-0500 Systolic blood pressure 155 mm[Hg] [facility] Work Phone: [facility] 01-02-2023 01:14-0500 Body height 157.48 cm Services [facility] Senior Work Phone: [facility] 01-02-2023 01:14-0500 Body temperature 98 [degF] Services [facility] Work Phone: [facility] 01-02-2023 01:14-0500 Body weight 77.11 kg Services [facility] Work Phone: [facility] 12-31-2022 12:11-0500 Heart rate 70 /min Services [facility] Senior Work Phone: [facility] 12-31-2022 12:08-0500 Body height 157.48 cm Services [facility] Senior Work Phone: [facility] 12-31-2022 12:08-0500 Body temperature 97.7 [degF] Services [facility] Senior Work Phone: [facility] 12-31-2022 12:08-0500 Body weight 79 kg Services [facility] Senior Work Phone: [facility] 12-31-2022 12:08-0500 Diastolic blood pressure 87 mm[Hg] Services [facility] Senior Work Phone: [facility] 12-31-2022 12:08-0500 Respiratory rate 18 /min Services [facility] Senior Work Phone: [facility] 12-31-2022 12:08-0500 SaO2% (BldA) [Mass fraction] 99 % Services [facility] Senior Work Phone: [facility] 12-31-2022 12:08-0500 Systolic blood pressure 134 mm[Hg] Services [facility] Senior Work Phone: [facility] 11-09-2022 15:15-0500 Body height 157.48 cm Services [facility] Senior Work Phone: [facility] 11-09-2022 15:15-0500 Body temperature 98.4 [degF] [facility] Work Phone: [facility] 11-09-2022 15:15-0500 Body weight 81.64 kg Services Family [employer] Senior Work Phone: [facility] 11-09-2022 15:15-0500 Diastolic blood pressure 90 mm[Hg] [facility] Work Phone: [facility] 11-09-2022 15:15-0500 Heart rate 95 /min Services [facility] [employer] Senior Work Phone: [facility] 11-09-2022 15:15-0500 Respiratory rate 16 /min Services Family [employer] Work Phone: [facility] 11-09-2022 15:15-0500 SaO2% (BldA) [Mass fraction] 100 % Services [facility] Senior Work Phone: [facility] 11-09-2022 15:15-0500 Systolic blood pressure 140 mm[Hg] Services [facility] Senior Work Phone: [facility] 11-07-2022 13:40-0500 Diastolic blood pressure 85 mm[Hg] Services [facility] [employer] Senior Work Phone: [facility] 11-07-2022 13:40-0500 Heart rate 68 /min Services [facility] [employer] Senior Work Phone: [facility] 11-07-2022 13:40-0500 Respiratory rate 16 /min Services Family [employer] [facility] Work Phone: [facility] 11-07-2022 13:40-0500 SaO2% (BldA) [Mass fraction] 100 % Services Family [employer] [facility] Work Phone: [facility] 11-07-2022 13:40-0500 Systolic blood pressure 119 mm[Hg] Services Family [employer] [facility] Work Phone: [facility] 11-07-2022 11:05-0500 Body temperature 98.2 [degF] [facility] Work Phone: [facility] 11-07-2022 11:04-0500 Body height 158.75 cm [facility] Work Phone: [facility] 11-07-2022 11:04-0500 Body weight 77 kg Services [facility] [employer] Senior Work Phone: [facility] 11-02-2022 09:53-0500 Diastolic blood pressure 89 mm[Hg] [facility] Work Phone: [facility] 11-02-2022 09:53-0500 Heart rate 50 /min Services [facility] Senior Work Phone: [facility] 11-02-2022 09:53-0500 Respiratory rate 18 /min Services [facility] Senior Work Phone: [facility] 11-02-2022 09:53-0500 SaO2% (BldA) [Mass fraction] 98 % Services [facility] Senior Work Phone: [facility] 11-02-2022 09:53-0500 Systolic blood pressure 156 mm[Hg] Services [facility] Senior Work Phone: [facility] 11-02-2022 03:00-0500 Body height 157.48 cm Services [facility] Senior Work Phone: [facility] 11-02-2022 03:00-0500 Body temperature 98.4 [degF] Services [facility] Senior Work Phone: [facility] 11-02-2022 03:00-0500 Body weight 78 kg Services [facility] Senior Work Phone: [facility] 10-31-2022 10:05-0500 Diastolic blood pressure 85 mm[Hg] Services [facility] Senior Work Phone: [facility] 10-31-2022 10:05-0500 Heart rate 59 /min Services [facility] Senior Work Phone: [facility] 10-31-2022 10:05-0500 Respiratory rate 18 /min Services [facility] Senior Work Phone: [facility] 10-31-2022 10:05-0500 SaO2% (BldA) [Mass fraction] 98 % Services [facility] Senior Work Phone: [facility] 10-31-2022 10:05-0500 Systolic blood pressure 137 mm[Hg] Services [facility] Senior Work Phone: [facility] 10-31-2022 08:50-0500 Body height 157.48 cm Services [facility] Senior Work Phone: [facility] 10-31-2022 08:50-0500 Body temperature 98.2 [degF] Services [facility] Senior Work Phone: [facility] 10-31-2022 08:50-0500 Body weight 83.91 kg Services [facility] Senior Work Phone: [facility] 10-29-2022 12:01-0500 Body height 157.48 cm Services [facility] [employer] Senior Work Phone: [facility] 10-29-2022 12:01-0500 Body temperature 97.8 [degF] Services [facility] Senior Work Phone: [facility] 10-29-2022 12:01-0500 Body weight 81 kg Services [facility] Senior Work Phone: [facility] 10-29-2022 12:01-0500 Diastolic blood pressure 84 mm[Hg] Services [facility] Senior Work Phone: [facility] 10-29-2022 12:01-0500 Heart rate 60 /min Services [facility] Senior Work Phone: [facility] 10-29-2022 12:01-0500 Respiratory rate 18 /min Services [facility] Senior Work Phone: [facility] 10-29-2022 12:01-0500 SaO2% (BldA) [Mass fraction] 99 % Services [facility] Senior Work Phone: [facility] 10-29-2022 12:01-0500 Systolic blood pressure 109 mm[Hg] [facility] Work Phone: [facility] 08-22-2022 12:00-0400 Body temperature 98 [degF] [facility] Work Phone: [facility] 08-22-2022 12:00-0400 Diastolic blood pressure 78 mm[Hg] [facility] Work Phone: [facility] 08-22-2022 12:00-0400 Heart rate 80 /min [facility] Work Phone: [facility] 08-22-2022 12:00-0400 Respiratory rate 18 /min [facility] Work Phone: [facility] 08-22-2022 12:00-0400 SaO2% (BldA) [Mass fraction] 95 % [facility] Work Phone: [facility] 08-22-2022 12:00-0400 Systolic blood pressure 121 mm[Hg] [facility] Work Phone: [facility] 08-22-2022 05:50-0400 Body weight 77.5 kg [facility] Work Phone: [facility] 08-21-2022 11:27-0400 Body height 157.48 cm [facility] Work Phone: [facility] 08-20-2022 16:34-0400 Diastolic blood pressure 90 mm[Hg] [facility] Work Phone: [facility] 08-20-2022 16:34-0400 Heart rate 68 /min [facility] Work Phone: [facility] 08-20-2022 16:34-0400 Respiratory rate 20 /min [facility] Work Phone: [facility] 08-20-2022 16:34-0400 SaO2% (BldA) [Mass fraction] 96 % [facility] Work Phone: [facility] 08-20-2022 16:34-0400 Systolic blood pressure 142 mm[Hg] [facility] Work Phone: [facility] 08-20-2022 11:58-0400 Body height 157.48 cm [facility] Work Phone: [facility] 08-20-2022 11:58-0400 Body temperature 97.9 [degF] [facility] Work Phone: [facility] 08-20-2022 11:58-0400 Body weight 79.37 kg [facility] Work Phone: [facility] 08-20-2022 01:00-0400 Body temperature 97.9 [degF] [facility] Work Phone: [facility] 08-20-2022 01:00-0400 Diastolic blood pressure 72 mm[Hg] [facility] Work Phone: [facility] 08-20-2022 01:00-0400 Heart rate 53 /min [facility] Work Phone: [facility] 08-20-2022 01:00-0400 Respiratory rate 16 /min [facility] Work Phone: [facility] 08-20-2022 01:00-0400 SaO2% (BldA) [Mass fraction] 97 % [facility] Work Phone: [facility] 08-20-2022 01:00-0400 Systolic blood pressure 131 mm[Hg] [facility] Work Phone: [facility] 08-19-2022 18:57-0400 Body height 157.48 cm [facility] Work Phone: [facility] 08-19-2022 18:57-0400 Body weight 79.37 kg [facility] Work Phone: [facility] 08-19-2022 14:00-0400 Diastolic blood pressure 79 mm[Hg] [facility] Work Phone: [facility] 08-19-2022 14:00-0400 Heart rate 67 /min [facility] Work Phone: [facility] 08-19-2022 14:00-0400 Respiratory rate 20 /min [facility] Work Phone: [facility] 08-19-2022 14:00-0400 SaO2% (BldA) [Mass fraction] 99 % [facility] Work Phone: [facility] 08-19-2022 14:00-0400 Systolic blood pressure 139 mm[Hg] [facility] Work Phone: [facility] 08-19-2022 00:40-0400 Body height 157.48 cm [facility] Work Phone: [facility] 08-19-2022 00:40-0400 Body temperature 98.8 [degF] [facility] Work Phone: [facility] 08-19-2022 00:40-0400 Body weight 77.11 kg [facility] Work Phone: [facility] 08-18-2022 15:28-0400 Body temperature 97.8 [degF] [facility] Work Phone: [facility] 08-18-2022 15:28-0400 Diastolic blood pressure 90 mm[Hg] [facility] Work Phone: [facility] 08-18-2022 15:28-0400 Heart rate 54 /min [facility] Work Phone: [facility] 08-18-2022 15:28-0400 Respiratory rate 20 /min [facility] Work Phone: [facility] 08-18-2022 15:28-0400 SaO2% (BldA) [Mass fraction] 100 % [facility] Work Phone: [facility] 08-18-2022 15:28-0400 Systolic blood pressure 135 mm[Hg] [facility] Work Phone: [facility] 08-18-2022 12:26-0400 Body height 157.48 cm [facility] Work Phone: [facility] 08-18-2022 12:26-0400 Body weight 77.11 kg [facility] Work Phone: [facility] 06-09-2022 10:25-0400 Diastolic blood pressure 51 mm[Hg] [facility] Work Phone: [facility] 06-09-2022 10:25-0400 Heart rate 83 /min [facility] Work Phone: [facility] 06-09-2022 10:25-0400 Respiratory rate 20 /min [facility] Work Phone: [facility] 06-09-2022 10:25-0400 SaO2% (BldA) [Mass fraction] 98 % [facility] Work Phone: [facility] 06-09-2022 10:25-0400 Systolic blood pressure 92 mm[Hg] [facility] Work Phone: [facility] 06-09-2022 08:46-0400 Body height 157.48 cm [facility] Work Phone: [facility] 06-09-2022 08:46-0400 Body mass index (BMI) [Percentile] Per age and sex 96.2 % [facility] Work Phone: [facility] 06-09-2022 08:46-0400 Body mass index (BMI) [Ratio] 32 kg/m2 [facility] Work Phone: [facility] 06-09-2022 08:46-0400 Body temperature 97.4 [degF] [facility] Work Phone: [facility] 06-09-2022 08:46-0400 Body weight 79.37 kg [facility] Work Phone: [facility] 05-16-2022 13:52-0400 Diastolic blood pressure 96 mm[Hg] [facility] Work Phone: [facility] 05-16-2022 13:52-0400 Heart rate 66 /min [facility] Work Phone: [facility] 05-16-2022 13:52-0400 Respiratory rate 18 /min [facility] Work Phone: [facility] 05-16-2022 13:52-0400 SaO2% (BldA) [Mass fraction] 100 % Services [facility] Work Phone: [facility] 05-16-2022 13:52-0400 Systolic blood pressure 138 mm[Hg] Services [facility] Work Phone: [facility] 05-16-2022 11:54-0400 Body height 157.48 cm Services [facility] [employer] Work Phone: [facility] 05-16-2022 11:54-0400 Body mass index (BMI) [Percentile] Per age and sex 95.5 % Services [facility] Work Phone: [facility] 05-16-2022 11:54-0400 Body mass index (BMI) [Ratio] 31.1 kg/m2 Services [facility] Work Phone: [facility] 05-16-2022 11:54-0400 Body temperature 98.4 [degF] Services [facility] [employer] Work Phone: [facility] 05-16-2022 11:54-0400 Body weight 77.11 kg Services [facility] Work Phone: [facility] 05-15-2022 15:30-0400 Diastolic blood pressure 82 mm[Hg] Services [facility] Work Phone: [facility] 05-15-2022 15:30-0400 Heart rate 52 /min Services [email or web address] Work Phone: [facility] 05-15-2022 15:30-0400 Respiratory rate 14 /min Services [email or web address] Work Phone: [facility] 05-15-2022 15:30-0400 SaO2% (BldA) [Mass fraction] 99 % Services [facility] Work Phone: [facility] 05-15-2022 15:30-0400 Systolic blood pressure 134 mm[Hg] Services [facility] Work Phone: [facility] 05-15-2022 12:28-0400 Body height 157.48 cm Services [facility] Work Phone: [facility] 05-15-2022 12:28-0400 Body mass index (BMI) [Percentile] Per age and sex 95.5 % Services [facility] Work Phone: [facility] 05-15-2022 12:28-0400 Body mass index (BMI) [Ratio] 31 kg/m2 Services [email or web address] Work Phone: [facility] 05-15-2022 12:28-0400 Body temperature 98.1 [degF] Services [facility] Work Phone: [facility] 05-15-2022 12:28-0400 Body weight 77 kg Services [facility] Work Phone: [facility] 05-14-2022 22:56-0400 Body temperature 98.1 [degF] Services [email or web address] Work Phone: [facility] 05-14-2022 22:56-0400 Diastolic blood pressure 74 mm[Hg] Services [email or web address] Work Phone: [facility] 05-14-2022 22:56-0400 Heart rate 18 /min Services [email or web address] Work Phone: [facility] 05-14-2022 22:56-0400 Respiratory rate 18 /min Services [facility] Work Phone: [facility] 05-14-2022 22:56-0400 SaO2% (BldA) [Mass fraction] 94 % Services [email or web address] Work Phone: [facility] 05-14-2022 22:56-0400 Systolic blood pressure 137 mm[Hg] Services [facility] Work Phone: [facility] 05-14-2022 02:18-0400 Body height 157.48 cm Services [facility] Work Phone: [facility] 05-14-2022 02:18-0400 Body mass index (BMI) [Percentile] Per age and sex 95.5 % Services [facility] Work Phone: [facility] 05-14-2022 02:18-0400 Body mass index (BMI) [Ratio] 31.1 kg/m2 Services [facility] Work Phone: [facility] 05-14-2022 02:18-0400 Body temperature 97.9 [degF] Services [facility] Work Phone: [facility] 05-14-2022 02:18-0400 Body weight 77.11 kg Services [facility] Work Phone: [facility] 05-14-2022 02:18-0400 Diastolic blood pressure 65 mm[Hg] Services [facility] Work Phone: [facility] 05-14-2022 02:18-0400 Heart rate 54 /min Services [facility] Work Phone: [facility] 05-14-2022 02:18-0400 Respiratory rate 18 /min Services [email or web address] Work Phone: [facility] 05-14-2022 02:18-0400 SaO2% (BldA) [Mass fraction] 98 % Services [facility] Work Phone: [facility] 05-14-2022 02:18-0400 Systolic blood pressure 133 mm[Hg] Services [facility] Work Phone: [facility] 05-13-2022 12:09-0400 Heart rate 72 /min Services [facility] Work Phone: [facility] 05-13-2022 12:09-0400 Respiratory rate 18 /min Services [facility] Work Phone: [facility] 05-13-2022 12:09-0400 SaO2% (BldA) [Mass fraction] 98 % Services [email or web address] Work Phone: [facility] 05-13-2022 10:32-0400 Body height 156.21 cm Services [email or web address] Work Phone: [facility] 05-13-2022 10:32-0400 Body mass index (BMI) [Percentile] Per age and sex 95.9 % Services [email or web address] Work Phone: [facility] 05-13-2022 10:32-0400 Body mass index (BMI) [Ratio] 31.6 kg/m2 Services [email or web address] Work Phone: [facility] 05-13-2022 10:32-0400 Body temperature 98.1 [degF] Services [email or web address] Phone: [facility] 05-13-2022 10:32-0400 Body weight 77.11 kg Services [email or web address] Work Phone: [facility] 05-13-2022 10:32-0400 Diastolic blood pressure 87 mm[Hg] Services [email or web address] Work Phone: [facility] 05-13-2022 10:32-0400 Systolic blood pressure 145 mm[Hg] Services [facility] [employer] Phone: [facility] Encounters Encounter Date Encounter Type Care Provider Facility Start: 01-16-2025 End: 01-16-2025 Emergency department patient visit August Beck [facility] Start: 10-28-2024 End: 10-29-2024 Emergency department patient visit Rd Brown Facility:[facility] Start: 08-03-2024 End: 08-04-2024 Emergency department patient visit Services [email or web address] Work Phone: [facility] Work Phone: Start: 08-01-2024 End: 08-01-2024 Emergency department patient visit MODESTA ARCHIBALD Facility:[facility] Start: 07-30-2024 End: 07-30-2024 Emergency department patient visit Cresencio Abel Facility:[facility] Start: 03-18-2024 End: 03-19-2024 Emergency department patient visit Services [facility] Work Phone: [facility] Work Phone: Start: 03-15-2024 End: 03-15-2024 Emergency department patient visit August Beck [facility] Start: 03-13-2024 End: 03-13-2024 Emergency department patient visit Jacinto Roman [facility] Start: 07-31-2023 End: 07-31-2023 Emergency department patient visit Services [facility] Work Phone: [facility] Work Phone: Start: 07-14-2023 End: 07-14-2023 ambulatory Services [facility] Work Phone: [facility] Work Phone: Start: 07-14-2023 End: 07-14-2023 Patient encounter procedure Services [facility] Work Phone: [facility] Start: 06-16-2023 End: 06-16-2023 ambulatory Services [facility] Work Phone: [facility] Work Phone: Start: 06-16-2023 End: 06-16-2023 Patient encounter procedure Services [facility] Work Phone: [facility] Start: 06-02-2023 Postop follow up vis it related to original px [facility] Start: 06-02-2023 End: 06-02-2023 ambulatory Services [facility] Work Phone: [employer] Other Start: 06-02-2023 End: 06-02-2023 Patient encounter procedure Services [facility] Work Phone: [facility] Start: 05-25-2023 End: 05-25-2023 Admission to same day surgery center Services [facility] Work Phone: [facility] [place] Start: 05-25-2023 End: 05-25-2023 ambulatory Services [facility] Work Phone: [facility] Work Phone: Start: 05-24-2023 End: 05-24-2023 ambulatory Colten Wesley[facility] Other [employer] Other Start: 05-24-2023 Telephone encounter Colten Lupilloxa [facility] Start: 05-23-2023 End: 05-23-2023 ambulatory Colten Olexa Other [employer] Other Start: 05-23-2023 Encounter for other preprocedural examination Colten Wesleyxa [facility] Start: 05-23-2023 Office outpatient ne w 45 minutes Colten Olexa [facility] Start: 03-15-2023 End: 03-15-2023 Departed Referred Services [facility] Work Phone: [facility] Start: 01-26-2023 End: 01-26-[address] DOCTOR JO Facility: Start: 01-06-2023 End: 01-07-2023 Evaluation and management of inpatient Services [facility] Work Phone: [facility] Work Phone: Start: 01-06-2023 observation encounter Services [facility] Work Phone: [facility] Work Phone: Start: 01-06-2023 End: 01-07-2023 [facility] Work Phone: [facility] [facility] Work Phone: Start: 01-02-2023 End: 01-02-2023 Services [facility] Work Phone: [facility] Work Phone: Start: 01-01-2023 End: 01-01-2023 ambulatory IRWIN DIAB . Facility: Start: 12-31-2022 End: 12-31-2022 Emergency department patient visit Services [facility] Work Phone: [facility] Work Phone: Start: 12-31-2022 End: 12-31-2022 [facility] Work Phone: [facility] Work Phone: Start: 11-09-2022 End: 11-09-2022 Emergency department patient visit Services [facility] Work Phone: [facility] Work Phone: Start: 11-09-2022 End: 11-09-2022 Services [facility] Work Phone: [facility] Start: 11-07-2022 End: 11-07-2022 Emergency department patient visit [facility] Work Phone: [facility] Work Phone: Start: 11-07-2022 End: 11-07-2022 Services [facility] Work Phone: [facility]Emer[facility] Start: 11-02-2022 End: 11-02-2022 Emergency department patient visit [facility] Work Phone: [facility] Work Phone: Start: 11-02-2022 End: 11-02-2022 [facility] Work Phone: [facility]Emer[facility] Start: 10-31-2022 End: 10-31-2022 Emergency department patient visit [facility] Work Phone: [facility] Work Phone: Start: 10-31-2022 End: 10-31-2022 Services [facility] Work Phone: [facility] Start: 10-29-2022 End: 10-29-2022 Emergency department patient visit [facility] Work Phone: [facility] Start: 10-29-2022 End: 10-29-2022 Services [facility] Work Phone: [facility] Start: 08-27-2022 End: 08-27-2022 Departed Referred Services [facility] Work Phone: [facility] Start: 08-27-2022 End: 08-27-2022 Services [facility] Senior Work Phone: [facility] Start: 08-20-2022 End: 08-22-2022 Evaluation and management of inpatient Services [facility] Work Phone: [facility] [facility] Start: 08-20-2022 End: 08-22-2022 Services [facility] Work Phone: [facility] [facility] Start: 08-19-2022 End: 08-20-2022 Emergency department patient visit Services [facility] Work Phone: [facility] Start: 08-19-2022 End: 08-20-2022 Services [facility] Work Phone: [facility] Start: 08-19-2022 End: 08-19-2022 Emergency department patient visit Services [facility] Work Phone: [facility] Start: 08-19-2022 End: 08-19-2022 Services [facility] Work Phone: [facility] Start: 08-18-2022 End: 08-18-2022 Emergency department patient visit Services [facility] Work Phone: [facility] Start: 08-18-2022 End: 08-18-2022 Services [facility] Work Phone: [facility] Start: 06-25-2022 End: 06-25-2022 Departed Referred Services [email or web address] Work Phone: [facility] Start: 06-09-2022 End: 06-09-2022 Admission to same day surgery center Services [email or web address] Work Phone: [facility] Start: 06-07-2022 End: 06-07-2022 Patient encounter procedure Services [email or web address] Work Phone: [facility] Start: 05-26-2022 End: 05-26-2022 Departed Referred Services [email or web address] Work Phone: [facility] Start: 05-16-2022 ambulatory Luana Mak RN 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 Comment on above: Abdominal Pain Start: 05-16-2022 End: 05-16-2022 Emergency department patient visit Services [email or web address] Work Phone: [facility] Start: 05-15-2022 End: 05-15-2022 Emergency department patient visit Services [email or web address] Work Phone: [facility] Start: 05-14-2022 End: 05-14-2022 Emergency department patient visit Services [email or web address] Work Phone: [facility] Start: 05-14-2022 End: 05-14-2022 Emergency department patient visit Services [email or web address] Work Phone: [facility] Start: 05-13-2022 End: 05-13-2022 Emergency department patient visit Services [email or web address] Work Phone: [facility] Start: 06-23-2018 Evaluation and manag ement of inpatient Radha Magyjordi Unger Facility:[facility] Start: 06-16-2018 Patient encounter DALI regnaty:[id number] Start: 06-05-2018 Patient encounter Mere Simpson Facility:[id number] Start: 04-14-2018 Patient encounter DALI reganty:[id number] Start: 02-17-2018 Patient encounter Mere Simpson Facility:[id number] Start: 02-10-2018 Patient encounter DALI Davis cility:[id number] Start: 12-16-2017 Patient encounter DALI Davis cility:[id number] Start: 10-14-2017 Patient encounter DALI Davis cility:[id number] Start: 09-28-2017 Patient encounter Mere Simpson Facility:[id number] Start: 08-25-2017 Patient encounter DALI Davis cility:[facility] Start: 08-09-2017 End: 08-24-2017 Evaluation and management of inpatient AIMEE Jayy WILKERSONLUIS EDUARDO Facility:[facility] Procedures Date Procedure Procedure Detail Performing Clinician Start: 07-14-2023 X-ray of right knee Services [email or web address] Phone: Start: 06-16-2023 X-ray of right knee [facility] [email or web address] Phone: Start: 06-02-2023 X-ray of right knee Services [email or web address] Phone: Start: 05-25-2023 Arthroscopy of knee Services [email or web address] Phone: Start: 03-15-2023 Respiratory Panel (PCR) Services [email or web address] Phone: Start: 01-06-2023 Computed tomography of abdomen and pelvis with contrast [facility] [employer] [employer] Phone: Start: 01-06-2023 Plain chest X-ray [facility] Phone: Start: 01-06-2023 Pelvis X-ray [facility] Phone: Start: 01-02-2023 Urine culture [facility] [employer] [employer] Phone: Start: 12-31-2022 Influenza A and B virus antigen assay [facility] [employer] Phone: Start: 12-31-2022 Urine culture [facility] [employer] [employer] Phone: Start: 11-02-2022 Urine culture [facility] [employer] Phone: Start: 10-31-2022 Urine culture Services [facility] Work Phone: Start: 08-19-2022 Computed tomography of abdomen and pelvis with contrast Services [facility] Work Phone: Start: 06-09-2022 Esophagogastroduodenoscopy Services [facility] Work Phone: Start: 05-16-2022 Computed tomography of abdomen and pelvis with contrast Services [facility] [employer] Work Phone: Start: 08-21-2017 Introduction of Nutritional [...] Date Care Activity Detail Author Start: 08-03-2024 [facility] Start: 03-18-2024 [facility] Start: 05-25-2023 [facility] Start: 05-25-2023 [facility] Start: 01-08-2023 Blood chemistry [facility] Start: 01-08-2023 [facility] Start: 01-07-2023 Blood chemistry [facility] Start: 01-07-2023 End: 01-07-2023 [facility] Start: 01-06-2023 Patient referral to dietitian [facility] Start: 01-06-2023 Hospital admission [facility] Start: 01-06-2023 [facility] Start: 01-06-2023 Computed tomography of abdomen and pelvis with contrast [facility] Start: 01-06-2023 CT Abdomen and Pelvis W contrast IV [facility] Start: 01-06-2023 End: 01-06-2023 [facility] Start: 01-06-2023 Urine culture [facility] Start: 12-31-2022 End: 12-31-2022 [facility] Start: 11-09-2022 [facility] Start: 10-29-2022 [facility] Start: 08-22-2022 [facility] Start: 08-22-2022 [facility] Work Phone: Start: 08-20-2022 Hospital admission [facility] Start: 08-20-2022 [facility] Work Phone: Start: 08-20-2022 [facility] Work Phone: Start: 08-19-2022 Computed tomography of abdomen and pelvis with contrast CT abdomen pelvis w con [facility] Start: 08-19-2022 CT Abdomen and Pelvis W contrast IV [facility] Work Phone: Start: 08-19-2022 [facility] Work Phone: Start: 07-29-2022 Influenza vaccination INFLUENZA (Season Ended) [facility] Start: 06-09-2022 [facility] Work Phone: Start: 2022 CHLAMYDIA SCREENING (18-24) CHLAMYDIA SCREENING (18-24) [facility] Start: 2022 GC (GONORRHEA) SCREENING (18-24) GC (GONORRHEA) SCREENING (18-24) [facility] Start: 2022 HEPATITIS C SCREENING HEPATITIS C SCREENING [facility] Start: 2022 HIV SCREENING HIV SCREENING [facility] Start: 2020 MENINGOCOCCAL CONJUGATE (1 - 2-dose series) MENINGOCOCCAL CONJUGATE (1 - 2-dose series) [facility] Start: 2018 PEDS TO ADULT TRANSITION ANNUAL ASSESSMENT PEDS TO ADULT TRANSITION ANNUAL ASSESSMENT [facility] Start: 2016 Adult depression screening assessment DEPRESSION SCREENING [facility] Start: 2016 PEDS TO ADULT TRANSITION INITIAL DISCUSSION PEDS TO ADULT TRANSITION INITIAL DISCUSSION [facility] Start: 2015 HPV VACCINE (1 - 2-dose series) HPV VACCINE (1 - 2-dose series) [facility] Start: 2014 MENINGOCOCCAL B: Consider based on risk (1 of 2 - Risk Bexsero 2-dose series) MENINGOCOCCAL B: Consider based on risk (1 of 2 - Risk Bexsero 2-dose series) [facility] Start: 2011 Urine microalbumin profile DTAP,TDAP,TD (1 - Tdap) [facility] Start: 2009 COVID-19 VACCINE (#1) [facility] Amphetamines [Presen ce] in Urine [facility] Work Phone: Bacteria identified in Blood by Culture [facility] Bacteria identified in Urine by Culture [facility] Bacteria identified in Urine by Culture [facility] Barbiturates [Presen ce] in Urine [facility] Work Phone: Basophils [#/volume] in Blood by Automated count [facility] Basophils/100 leukoc ytes in Blood by Automated count [facility] Benzodiazepines [Pre sence] in Urine [facility] Work Phone: Bilirubin measurement, urine [facility] Work Phone: Cannabinoids [Presen ce] in Urine by Screen method [facility] Work Phone: Choriogonadotropin ( test) [Presence] in Urine [facility] Work Phone: Cocaine [Presence] in Urine [facility] Work Phone: Color of Urine [facility] Work Phone: Detection of hemoglobin [facility] Work Phone: Eosinophils/100 leuk ocytes in Blood by Automated count [facility] Erythrocyte distribu tion width [Ratio] by Automated count [facility] Erythrocytes [#/volu me] in Blood [facility] Glucose [Mass/volume ] in Urine by Test strip [facility] Work Phone: Hematocrit [Volume F raction] of Blood [facility] Hemoglobin [Mass/vol ume] in Blood [facility] Homogenous nuclear A b pattern [Titer] in Serum [facility] Work Phone: Leukocytes [#/volume ] corrected for nucleated erythrocytes in Blood by Automated coun [facility] Leukocytes [#/volume ] in Blood [facility] Lymphocytes [#/volum e] in Blood by Automated count [facility] Lymphocytes/100 leuk ocytes in Blood by Automated count [facility] MCH [Entitic mass] b y Automated count [facility] MCHC [Mass/volume] b y Automated count [facility] MCV [Entitic volume] by Automated count [facility] Measurement of keton es in urine using dipstick [facility] Work Phone: Monocytes [#/volume] in Blood by Automated count [facility] Monocytes/100 leukoc ytes in Blood by Automated count [facility] Neutrophils [#/volum e] in Blood by Automated count [facility] Neutrophils/100 leuk ocytes in Blood by Automated count [facility] Nuclear Ab [Titer] in Serum [facility] Work Phone: Nucleated erythrocyt es [Presence] in Blood by Automated count [facility] Patient Education [facility] Work Phone: Patient referral [facility] Work Phone: Phencyclidine [Prese nce] in Urine [facility] Work Phone: Platelet mean volume [Entitic volume] in Blood by Automated count [facility] Platelets [#/volume] in Blood [facility] Protein measurement, urine F [facility] Work Phone: SARS-CoV-2 (COVID-19 ) N gene [Presence] in Respiratory specimen by JANAK with probe detection [facility] Work Phone: Urinalysis, specific gravity measurement [facility] Work Phone: Urine culture Urine Culture [facility] Urine culture [facility] Urine dipstick for nitrite F [facility] Work Phone: Urine dipstick for s pecific gravity [facility] Work Phone: Urine pH test [facility] Work Phone: Urobilinogen concent ration, test strip measurement [facility] Work Phone: [facility] Immunizations Immunization Date Immunization Notes Care Provider Fa christiano 01-17-2018 tetanus toxoid, redu yoni diphtheria toxoid, and acellular pertussis vaccine, adsorbed Services [facility] Work Phone: [facility] 01-07-2017 Human Papillomavirus 9-valent vaccine Colten Olexa Other [facility] [employer] Other 01-07-2017 HPV, unspecified formulation Services [facility] Work Phone: [facility] 09-06-2016 influenza, injectabl e, quadrivalent, preservative free Colten Olexa Other [facility] 09-06-2016 Human Papillomavirus 9-valent vaccine Colten Olexa Other [facility] [employer] Other 09-06-2016 HPV, unspecified formulation Services [facility] Work Phone: [facility] 07-01-2016 human papilloma viru s vaccine, quadrivalent Colten Olexa Other [facility] 07-01-2016 meningococcal polysaccharide (groups A, C, Y and W-135) diphtheria toxoid conjugate vaccine (MCV4P) Colten Olexa Other [facility] 07-01-2016 tetanus toxoid, redu yoni diphtheria toxoid, and acellular pertussis vaccine, adsorbed Colten Olexa Other [facility] 09-01-2015 influenza, injectabl e, quadrivalent, preservative free Colten Olexa Other [facility] 08-19-2014 influenza, injectabl e, quadrivalent, contains preservative Services [email or web address] Work Phone: [facility] 08-19-2014 influenza, injectabl e, quadrivalent, preservative free Colten Olexa Other [employer] Other 08-17-2013 influenza, seasonal, injectable, preservative free Colten Olexa Other [facility] Payers Date Payer Category Payer Self-pay 2019 Medicaid [employer] [id number] 2019-Present [phone] [address] [place] [address] Medicaid [id number] 2004 Unknown [id number] 2004 Unknown [id number] 2004 Unknown [id number] 2004 Unknown [id number] 2004 Unknown [id number] 2004 Unknown [id number] 2004 Unknown [id number] 2004 Unknown [id number] 1969 Unknown [id number] [id number] 1969 Unknown [id number] 1959 Medicaid [id number] Medicaid [id number] Medicaid [id number] Unknown [id number] Unknown [id number] Unknown [id number] Unknown [id number] Unknown [id number] Unknown [id number] Unknown [id number] Unknown [id number] Social History Date Type Detail Facility Start: 10-09-2021 End: 03-13-2024 Tobacco smoking status NHIS Never smoked tobacco [facility] Start: 10-09-2021 Tobacco use and exposure Smokeless tobacco non-user [facility] Start: 10-09-2021 Alcohol intake Lifetime non-d isael (finding) [facility] Start: 10-09-2021 History SDOH Alcohol Frequency 1 [facility] Start: 2004 Sex Assigned At Not on file C [facility] Start: 06-09-2022 End: 08-03-2024 Tobacco smoking status NHIS Smoker (finding) [facility] Start: 2004 Sex Assigned At Female F [facility] Start: 08-18-2022 End: 05-25-2023 Tobacco smoking status [facility] Current some day smoker [facility] Start: 01-06-2023 Tobacco smoking status [facility] Ex-smoker (finding) [facility] Sex Assigned At [facility] Tobacco smoking status Never [facility] NEGATED: Highlighted row [facility] Medical Equipment Procedure Code Equipment Code Equipment Origin al Text Equipment Identifier Dates Arthroscopy, knee Tendon/ligamen t bone anchor, non-bioabsorbable [id number] FDA Start: 05-25-2023 Arthroscopy, knee Soft-tissue/me sh anchor, non-bioabsorbable [id number] FDA Start: 05-25-2023 Arthroscopy, knee Tendon/ligamen t bone anchor, bioabsorbable [id number] FDA Start: 05-25-2023 Goals Date Patient Goal Desired Activity /State Functional Status Date Assessment Result Facility 01-16-2025 Functional Status N/A [facility] 07-30-2024 Functional Status N/A [facility] 03-15-2024 Functional Status N/A [facility] 03-13-2024 Functional Status N/A [facility] 01-07-2023 Functional status Patient at [facility] Work Phone: 01-06-2023 Functional status Patient at [facility] Work Phone: 08-22-2022 Functional status Patient at [facility] Work Phone: Mental Status Date Assessment Result Facility 01-07-2023 Cognitive function Patient at [facility] Work Phone: 01-06-2023 Cognitive function Patient at [facility] Work Phone: 08-22-2022 Cognitive function Patient at [facility] Work Phone: Clinical Notes 09-28-2015 to 01-16-2025 Note Date & Type Note Facility 01-16-2025 Hospital Discharg e instructions Patient Education 01/16/2025 20:36:16 RICE Therapy for Routine Care of Injuries RICE Therapy for Routine Care of Injuries The routine care of many injuries includes rest, ice, compression, and elevation (RICE therapy). RICE therapy is often recommended for injuries to soft tissues, such as muscle strain, sprains, bruises, and overuse injuries. It can also be used for some bone injuries. Using RICE therapy can help to relieve pain and lessen swelling. Supplies needed: Ice. Plastic bag. Towel. Elastic bandage. Pillow or pillows to raise (elevate) the injured body part. How to care for your injury with RICE therapy Rest Rest your injury. This may help with the healing process. Rest usually involves limiting your normal activities and not using the injured part of your body. Generally, you can return to your normal activities when your health care provider says it is okay and you can do them without much discomfort. If you rest the injury too much, it may not heal as well. Some injuries heal better with early movement instead of resting for too long. Talk with your health care provider about how you should limit your activities and whether you should start jpech-kw-jzneam exercises for your injury. Ice Ice your injury to lessen swelling and pain. Do not apply ice directly to your skin. Put ice in a plastic bag. Place a towel between your skin and the bag. Leave the ice on for 20 minutes, 2 3 times a day. Use ice on as many days as told by your health care provider. Compression Put pressure (compression) on your injured area to control swelling, give support, and help with discomfort. Compression may be done with an elastic bandage. If an elastic bandage has been applied, follow these general tips: Use the bandage as directed by the maker of the bandage that you are using. Do not wrap the bandage too tightly. That may block (cut off) circulation in the arm or leg in the area below the bandage. ?If part of your body beyond the bandage becomes blue, numb, cold, swollen, or more painful, your bandage is probably too tight. If this occurs, remove your bandage and reapply it more loosely. Remove and reapply the bandage every 3 4 hours or as told by your health care provider. See your health care provider if the bandage seems to be making your problems worse rather than better. Elevation Elevate your injured area to lessen swelling and pain. If possible, elevate your injured area at or above the level of your heart or the center of your chest. Contact a health care provider if: Your pain and swelling continue. Your symptoms are getting worse rather than improving. Having these problems may mean that you need further evaluation or imaging tests, such as X-rays or an MRI. Sometimes, X-rays may not show a small broken bone (fracture) until days after the injury happened. Make a follow-up appointment with your health care provider. Ask your health care provider, or the department that is doing the imaging test, when your results will be ready. Get help right away if: You have sudden severe pain at or below the area of your injury. You have redness or increased swelling around your injury. You have tingling or numbness at or below the area of your injury and it does not improve after you remove the elastic bandage. Summary The routine care of many injuries includes rest, ice, compression, and elevation (RICE therapy). Using RICE therapy can help to relieve pain and lessen swelling. RICE therapy is often recommended for injuries to soft tissues, such as muscle strain, sprains, bruises, and overuse injuries. It can also be used for some bone injuries. Seek medical care if your pain and swelling continue or if your symptoms are getting worse rather than improving. This information is not intended to replace advice given to you by your health care provider. Make sure you discuss any questions you have with your health care provider. Document Revised: 2021 Document Reviewed: 08/04/2018 [employer] Patient Education 2020 [employer] 01/16/2025 20:36:16 Contusion Contusion A contusion is a deep bruise. Contusions are the result of a blunt injury to tissues and muscle fibers under the skin. The injury causes bleeding under the skin. The skin over the contusion may turn blue, purple, or yellow. Minor injuries will give you a painless contusion, but more severe injuries cause contusions that can stay painful and swollen for a few weeks. Follow these instructions at home: Pay attention to any changes in your symptoms. Let your health care provider know about them. Take these actions to relieve your pain. Managing pain, stiffness, and swelling Use resting, icing, applying pressure (compression), and raising (elevating) the injured area. This is often called the RICE method. ?Rest the injured area. Return to your normal activities as told by your health care provider. Ask your health care provider what activities are safe for you. ?If directed, put ice on the injured area. To do this: ?Put ice in a plastic bag. ?Place a towel between your skin and the bag. ?Leave the ice on for 20 minutes, 2 3 times a day. ?If your skin turns bright red, remove the ice right away to prevent skin damage. The risk of skin damage is higher if you cannot feel pain, heat, or cold. ?If directed, apply light compression to the injured area using an elastic bandage. Make sure the bandage is not wrapped too tightly. Remove and reapply the bandage as directed by your health care provider. ?If possible, elevate the injured area above the level of your heart while you are sitting or lying down. General instructions Take cqih-swk-zxdlzqa and prescription medicines only as told by your health care provider. Keep all follow-up visits. Your health care provider may want to see how your contusion is healing with treatment. Contact a health care provider if: Your symptoms do not improve after several days of treatment. Your symptoms get worse. You have difficulty moving the injured area. Get help right away if: You have severe pain. You have numbness in a hand or foot. Your hand or foot turns pale or cold. This information is not intended to replace advice given to you by your health care provider. Make sure you discuss any questions you have with your health care provider. Document Revised: 05/02/2023 Document Reviewed: 05/02/2023 [employer] Patient Education 2023 [employer]. 01/16/2025 20:36:16 Fall Prevention in the Home, Adult, Dnuh-pz-Lfdj Fall Prevention in the Home, Adult Falls can cause injuries and can happen to people of all ages. There are many things you can do to make your home safer and to help prevent falls. What actions can I take to prevent falls? General information Use good lighting in all rooms. Make sure to: ?Replace any light bulbs that burn out. ?Turn on the lights in dark areas and use night-lights. Keep items that you use often in tgpx-su-sdhxi places. Lower the shelves around your home if needed. Move furniture so that there are clear paths around it. Do not use throw rugs or other things on the floor that can make you trip. If any of your floors are uneven, fix them. Add color or contrast paint or tape to clearly carmelita and help you see: ?Grab bars or handrails. ?First and last steps of staircases. ?Where the edge of each step is. If you use a ladder or stepladder: ?Make sure that it is fully opened. Do not climb a closed ladder. ?Make sure the sides of the ladder are locked in place. ?Have someone hold the ladder while you use it. Know where your pets are as you move through your home. What can I do in the bathroom? Keep the floor dry. Clean up any water on the floor right away. Remove soap buildup in the bathtub or shower. Buildup makes bathtubs and showers slippery. Use non-skid mats or decals on the floor of the bathtub or shower. Attach bath mats securely with double-sided, non-slip rug tape. If you need to sit down in the shower, use a non-slip stool. Install grab bars by the toilet and in the bathtub and shower. Do not use towel bars as grab bars. What can I do in the bedroom? Make sure that you have a light by your bed that is easy to reach. Do not use any sheets or blankets on your bed that hang to the floor. Have a firm chair or bench with side arms that you can use for support when you get dressed. What can I do in the kitchen? Clean up any spills right away. If you need to reach something above you, use a step stool with a grab bar. Keep electrical cords out of the way. Do not use floor lithuanian or wax that makes floors slippery. What can I do with my stairs? Do not leave anything on the stairs. Make sure that you have a light switch at the top and the bottom of the stairs. Make sure that there are handrails on both sides of the stairs. Fix handrails that are broken or loose. Install non-slip stair treads on all your stairs if they do not have carpet. Avoid having throw rugs at the top or bottom of the stairs. Choose a carpet that does not hide the edge of the steps on the stairs. Make sure that the carpet is firmly attached to the stairs. Fix carpet that is loose or worn. What can I do on the outside of my home? Use bright outdoor lighting. Fix the edges of walkways and driveways and fix any cracks. Clear paths of anything that can make you trip, such as tools or rocks. Add color or contrast paint or tape to clearly carmelita and help you see anything that might make you trip as you walk through a door, such as a raised step or threshold. Trim any bushes or trees on paths to your home. Check to see if handrails are loose or broken and that both sides of all steps have handrails. Install guardrails along the edges of any raised decks and porches. Have leaves, snow, or ice cleared regularly. Use sand, salt, or ice melter on paths if you live where there is ice and snow during the winter. Clean up any spills in your garage right away. This includes grease or oil spills. What other actions can I take? Review your medicines with your doctor. Some medicines can cause dizziness or changes in blood pressure, which increase your risk of falling. Wear shoes that: ?Have a low heel. Do not wear high heels. ?Have rubber bottoms and are closed at the toe. ?Feel good on your feet and fit well. Use tools that help you move around if needed. These include: ?Canes. ?Walkers. ?Scooters. ?Crutches. Ask your doctor what else you can do to help prevent falls. This may include seeing a physical therapist to learn to do exercises to move better and get stronger. Where to find more information Centers for Disease Control and Prevention, [place]: cdc.gov National [place] on Aging: jacob.nih.gov National [place] on Aging: jacob.nih.gov Contact a doctor if: You are afraid of falling at home. You feel weak, drowsy, or dizzy at home. You fall at home. Get help right away if you: Lose consciousness or have trouble moving after a fall. Have a fall that causes a head injury. These symptoms may be an emergency. Get help right away. Call 911. Do not wait to see if the symptoms will go away. Do not drive yourself to the hospital. This information is not intended to replace advice given to you by your health care provider. Make sure you discuss any questions you have with your health care provider. Document Revised: 07/18/2023 Document Reviewed: 07/18/2023 [employer] Patient Education 2023 [employer]. Follow Up Care 01/16/2025 17:51:58 With:MODESTA CHAND Address: [address] [place] [phone] Business (1) When:2025 20:14:58 Comments:Call Dr for diagnosis based follow up [facility] 01-16-2025 Note ED Patient Education Note Caregiving Fall Prevention in the Home, Adult Falls can cause injuries and can happen to people of all ages. There are many things you can do to make your home safer and to help prevent falls. What actions can I take to prevent falls? General information ??? Use good lighting in all rooms. Make sure to: ? Replace any light bulbs that burn out. ? Turn on the lights in dark areas and use night-lights. ??? Keep items that you use often in lnsh-fc-pigig places. Lower the shelves around your home if needed. ??? Move furniture so that there are clear paths around it. ??? Do not use throw rugs or other things on the floor that can make you trip. ??? If any of your floors are uneven, fix them. ??? Add color or contrast paint or tape to clearly carmelita and help you see: ? Grab bars or handrails. ? First and last steps of staircases. ? Where the edge of each step is. ??? If you use a ladder or stepladder: ? Make sure that it is fully opened. Do not climb a closed ladder. ? Make sure the sides of the ladder are locked in place. ? Have someone hold the ladder while you use it. ??? Know where your pets are as you move through your home. What can I do in the bathroom? Keep the floor dry. Clean up any water on the floor right away. ??? Remove soap buildup in the bathtub or shower. Buildup makes bathtubs and showers slippery. ??? Use non-skid mats or decals on the floor of the bathtub or shower. ??? Attach bath mats securely with double-sided, non-slip rug tape. ??? If you need to sit down in the shower, use a non-slip stool. ??? Install grab bars by the toilet and in the bathtub and shower. Do not use towel bars as grab bars. What can I do in the bedroom? Make sure that you have a light by your bed that is easy to reach. ??? Do not use any sheets or blankets on your bed that hang to the floor. ??? Have a firm chair or bench with side arms that you can use for support when you get dressed. What can I do in the kitchen? Clean up any spills right away. ??? If you need to reach something above you, use a step stool with a grab bar. ??? Keep electrical cords out of the way. ??? Do not use floor lithuanian or wax that makes floors slippery. What can I do with my stairs? Do not leave anything on the stairs. ??? Make sure that you have a light switch at the top and the bottom of the stairs. ??? Make sure that there are handrails on both sides of the stairs. Fix handrails that are broken or loose. ??? Install non-slip stair treads on all your stairs if they do not have carpet. ??? Avoid having throw rugs at the top or bottom of the stairs. ??? Choose a carpet that does not hide the edge of the steps on the stairs. Make sure that the carpet is firmly attached to the stairs. Fix carpet that is loose or worn. What can I do on the outside of my home? Use bright outdoor lighting. ??? Fix the edges of walkways and driveways and fix any cracks. Clear paths of anything that can make you trip, such as tools or rocks. ??? Add color or contrast paint or tape to clearly carmelita and help you see anything that might make you trip as you walk through a door, such as a raised step or threshold. ??? Trim any bushes or trees on paths to your home. ??? Check to see if handrails are loose or broken and that both sides of all steps have handrails. Install guardrails along the edges of any raised decks and porches. ??? Have leaves, snow, or ice cleared regularly. Use sand, salt, or ice melter on paths if you live where there is ice and snow during the winter. ??? Clean up any spills in your garage right away. This includes grease or oil spills. What other actions can I take? Review your medicines with your doctor. Some medicines can cause dizziness or changes in blood pressure, which increase your risk of falling. ??? Wear shoes that: ? Have a low heel. Do not wear high heels. ? Have rubber bottoms and are closed at the toe. ? Feel good on your feet and fit well. ??? Use tools that help you move around if needed. These include: ? Canes. ? Walkers. ? Scooters. ? Crutches. ??? Ask your doctor what else you can do to help prevent falls. This may include seeing a physical therapist to learn to do exercises to move better and get stronger. Where to find more information ??? Centers for Disease Control and Prevention, [place]: cdc.gov ??? National [place] on Aging: jacob.nih.gov ??? National [place] on Aging: jacob.nih.gov Contact a doctor if: ??? You are afraid of falling at home. ??? You feel weak, drowsy, or dizzy at home. ??? You fall at home. Get help right away if you: ??? Lose consciousness or have trouble moving after a fall. ??? Have a fall that causes a head injury. These symptoms may be an emergency. Get help right away. Call 911. ??? Do not wait to see if the symptoms will go away. (more content not included)... [facility] 08-01-2024 Note ED Patient Education Note Gastroenterology [...] such as yogurt. General instructions ? Take gidh-svy-zvwqarv and prescription medicines only as told by [...] provider. Document Revised: 07/29/2022 Document Reviewed: 07/29/2022 [email or web address] Patient Education ? 2023 [employer] Nausea and Vomiting, Adult Nausea is [...] has water adde (more content not included)... [facility] 07-31-2024 Hospital Discharg e instructions Patient [...] water added (diluted fruit juice). Eat bland, rvug-yw-qenigd foods in small amounts as you are able. These foods include bananas, applesauce, rice, lean meats, toast, and crackers. Avoid fluids that contain a lot of sugar or caffeine, such as energy drinks, sports drinks, and soda. Avoid alcohol. Avoid spicy or fatty foods. General instructions Take dubu-ive-dsnktzj and prescription medicines only as told by your health care provider. Drink enough fluid to keep your urine pale yellow. Wash your hands often using soap and water for at least 20 seconds. If soap and water are not available, use hand legal services manager. Make sure that everyone in your household [...] eating and drinking to prevent dehydration. Take tbbo-ewv-caawqok and prescription medicines only as told by [...] provider. Document Revised: 05/21/2022 Document Reviewed: 05/21/2022 [employer] Patient Education 2023 [employer]. Follow Up Care 07/30/2024 19:27:35 With:FAMILIA CHAND Address: [facility] [address] [place] [phone] Business (1) When:08/02/2024 [facility] 07-30-2024 Note ED Patient Education Note [...] added (diluted fruit juice). ? Eat bland, wkcf-pn-edvlhj foods in small amounts as you are able. These foods include bananas, applesauce, rice, lean meats, toast, and crackers. ? Avoid fluids that contain a lot of sugar or caffeine, such as energy drinks, sports drinks, and soda. ? Avoid alcohol. ? Avoid spicy or fatty foods. General instructions ? Take nzdi-lcq-hbxrtyy and prescription medicines only as told by your health care provider. ? Drink enough fluid to keep your urine pale yellow. ? Wash your hands often using soap and water for at least 20 seconds. If soap and water are not available, use hand legal services manager. ? Make sure that everyone in your [...] and drinking to prevent dehydration. ? Take etvp-erl-jlolowz and prescription medicines only as told by [...] provider. Document Revised: 05/21/2022 Document Reviewed: 05/21/2022 [employer] Patient Education ? 2023 [employer]. [facility] 07-30-2024 Evaluation + Plan note Extrac [...] Nausea/Vomiting, # 16 tab(s), Refills(s) 0, Pharmacy: [facility]/pharmacy #[id number], 157, cm, 07/30/24 19:37:00 EDT, Height/Length Dosing, 96.1, kg, 07/30/24 19:37:00 EDT, Weight Dosing promethazine, 12.5 mg = 1 tab(s), Oral, q8hr, PRN as needed for nausea/vomiting, second line, # 10 tab(s), Refills(s) 0, Pharmacy: [facility]/pharmacy #[id number], 157, cm, 07/30/24 19:37:00 EDT, Height/Length Dosing, 96.1, kg, 07/30/24 19:37:00 EDT, Weight Dosing promethazine, 12.5 mg = 1 supp, Rectal, q8hr, PRN as needed for nausea/vomiting, 3rd line, # 6 EA, Refills(s) 0, Pharmacy: [facility]/pharmacy #[id number], 157, cm, 07/30/24 19:37:00 [...] Lipase Level Magnesium Level Saline Lock Insert [facility] 04-18-2024 Hospital Discharge instructions Patient Education [...] careprovider. Do not use recreational drugs. Take mqqi-ies-iqxbksz and prescription medicines only as told by [...] provider. Document Revised: 06/08/2022 Document Reviewed: 06/08/2022 [employer] Patient Education 2022 [employer]. 03/15/2024 13:49:41 Nausea and Vomiting, Adult Nausea [...] water added (diluted fruit juice). Eat bland, qmld-os-uibzuf foods in small amounts as you are able. These foods include bananas, applesauce, rice, lean meats, toast, and crackers. Avoid fluids that contain a lot of sugar or caffeine, such as energy drinks, sports drinks, and soda. Avoid alcohol. Avoid spicy or fatty foods. General instructions Take nblf-jto-whkdeyx and prescription medicines only as told by your health care provider. Drink enough fluid to keep your urine pale yellow. Wash your hands often using soap and water for at least 20 seconds. If soap and water are not available, use hand legal services manager. Make sure that everyone in your household [...] eating and drinking to prevent dehydration. Take nivj-dnp-rgiiwsp and prescription medicines only as told by [...] provider. Document Revised: 05/21/2022 Document Reviewed: 05/21/2022 [employer] Patient Education 2022 [employer]. Follow Up Care 03/15/2024 10:34:05 With:Kirk Serrano Address:Unknown When:03/22/2024 13:33:04 Comments:Make sure to follow-up with Dr. Serrano at the surgery clinic in 1 week as instructed. Return to the emergency room if you develop chest pain, shortness of breath or any symptoms. [facility]04-18-2024 Evaluation + Plan noteExtracted from: Title:ED [...] CT Chest w/ Contrast eGFR Magnesium Level [facility]04-17-2024 Hospital Discharge instructions Patient Education 03/13/2024 22:27:59 Nausea and Vomiting, Adult, Htvo-mw-Yvka Nausea and Vomiting, Adult Nausea is feeling [...] fruit juice). ?Low-calorie sports drinks. Eat bland, jewi-bz-nrfqip foods in small amounts as you are able, such as: ?Bananas. ?Applesauce. ?Rice. ?Low-fat (lean) meats. ?[place]. ?Crackers. Avoid drinking fluids that have a lot of sugar or caffeine in them. This includes energy drinks, sports drinks, and soda. Avoid alcohol. Avoid spicy or fatty foods. General instructions Take isux-mxw-qnmpdbd and prescription medicines only as told by your doctor. Drink enough fluid to keep your pee (urine) pale yellow. Wash your hands often with soap and water for at least 20 seconds. If you cannot use soap and water, use hand legal services manager. Make sure that everyone in your home [...] your doctor about eating and drinking. Take eari-bui-dcajjog and prescription medicines only as told by your doctor. Contact your doctor if your symptoms get worse or you have new symptoms. Keep all follow-up visits. This information is not intended to replace advice given to you by your health care provider. Make sure you discuss any questions you have with your health care provider. Document Revised: 05/21/2022 Document Reviewed: 05/21/2022 [employer] Patient Education 2022 [employer]. 03/13/2024 22:27:59 Muscle Strain, Mgty-ez-Szfd Muscle Strain A muscle strain, or pulled [...] is not too tight. General instructions Take lgud-xkx-albqiiz and prescription medicines only as told by [...] provider. Document Revised: 02/01/2022 Document Reviewed: 02/01/2022 [employer] Patient Education 2022 [employer]. Follow Up Care 03/13/2024 17:33:30 With:MODESTA ARCHIBALD Address: [address] [place] [address] [phone] Business (1) When:03/16/2024 Comments:You can use the medications as prescribed as needed for pain, nausea. Please follow-up with your primary care doctor for further evaluation and management. Please return to the ED if you develop chest pain, difficulty breathing or if any concerning signs or symptoms. [facility]04-16-2024 Evaluation + Plan noteExtracted from: Title:ED [...] day(s), # 9 tab(s), Refills(s) 0, Pharmacy: [facility]/pharmacy #[id number], 160, cm, 03/13/24 17:38:00 EDT, Height/Length Dosing, 95.5, kg, 03/13/24 17:38:00 EDT, Weight Dosing morphine, 4 mg = 1 mL, Injection, IV Push, Once, Stop date 03/13/24 19:50:00 EDT, STAT, Start date 03/13/24 19:50:00 EDT, 03/13/24 19:50:00 EDT naproxen, 500 mg = 1 tab(s), Oral, BID, PRN for pain, # 20 tab(s), Refills(s) 0, Pharmacy: [facility]/pharmacy #[id number], 160, cm, 03/13/24 17:38:00 EDT, Height/Length Dosing, 95.5, kg, 03/13/24 17:38:00 EDT, Weight Dosing orphenadrine, 60 mg = 2 mL, Injection, IV Push, Once, Stop date 03/13/24 20:27:00 EDT, STAT, Start date 03/13/24 20:27:00 EDT, 03/13/24 20:27:00 EDT promethazine, 25 mg = 1 supp, Rectal, q6hr, PRN Nausea/Vomiting, # 6 EA, Refills(s) 0, Pharmacy: [facility]/pharmacy #[id number], 160, cm, 03/13/24 17:38:00 [...] kg, 2.06, m2 XR Chest 2 Views [facility]07-06-2023 Evaluation note* Encounter Date Diagnosis Assessment [...] Other specified postprocedural states (ICD-10 - Z98.890) [employer] Other 06-27-2023 Evaluation note* Encounter Date Diagnosis Assessment Notes Treatment Notes Treatment Clinical Notes Apr, Other specified postprocedural states (ICD-10 - Z98.890) [employer] Other 06-26-2023 Evaluation note* Encounter Date Diagnosis [...] pain for many months and potentially cause watermaster pain and stiffness. We have discussed the many potential complications of surgery including respiratory, cardiac, and patient positioning during anesthesia. The risks of DVT, scarring, watermaster pain, non union, hardware failure, development of [...] S82.111A) Apr, Pre-op exam (ICD-10 - Z01.818) [employer] Other 02-10-2023 History and physical note Author Eliana Bautista [facility] January 07, 2023 2:11am Note Date/Time January 06, 2023 5 :30pm [facility] [address] [place] [address] Hospitalist H&P Signed Patient: Pili Parikh MR#: [id number] : 2005 Acct:[id number] Age/Sex: 17 / F Adm Date: 3 Loc: Room: [address] [place] [address] Type: ADM INOo Attending Dr: Eliana Bautista MD Copies to: [facility] FRANKY Starkey MD~ HPI DATE OF [...] noted in the HPI or below [facility] Attestation Statement: The following information was [...] promethazine 25 mg rectal suppository 25 mg ID Q6H PRN Nausea #10 supp 01/02/23 [Rx [...] % (Auto) 19.9 % (.) 01/06/23 14:20 [place] % (Auto) 7.4 % (.) 01/06/23 14:20 Eos % (Auto) 2.3 % (.) 01/06/23 14:20 Baso % (Auto) 0.3 % (.) 01/06/23 14:20 Nucleat RBC Rel Count 0.1 /100 WBC (0-0.5) 01/06/23 14:20 Neut # (Auto) 12.4 x10E3/uL (1.2-7.7) H 01/06/23 14:20 Lymph # (Auto) 3.5 x10E3/uL (1.20-4.8) 01/06/23 14:20 [place] # (Auto) 1.3 x10E3/uL (0.1-1.00) H 01/06/23 [...] pH 6.5 (5.0-9.0) 01/06/23 16:10 Ur Specific [place] 1.027 (1.001-1.030) 01/06/23 16:10 Urine Protein 100 [...] MD Documented By: Anette Stout APRN 01/06/23 5601 Signed By: <Electronically signed by FRANKY Stout> 01/06/231816 <Electronically signed by Eliana Bautista MD> 01/07/23 0211 [facility] Work Phone: 1(846) 138-666309-24-2022 Progress note Author Gregorio Carey [facility] August 21, 2022 5:01pm Note Date/Time August 21, 2022 5:01pm [facility] [address] [place] [address] Hospitalist Progress Note Signed Patient: Pili Parikh MR#: [id number] : 2005 Acct:[id number] Age/Sex: 17 / F Adm Date: 2 Loc: Room: [address] [place] [address] Type: ADM IN Attending Dr: Gregorio Carey [...] alot of discomfort. She recalls that the landscaper helper told her that in warm water against [...] 1 Gm/10 Ml Udc PO 08/22/23 06:59 TID.AC. ALVIN A&P - Hospitalist Assessment/Plan (1) Intractable nausea [...] the morning. Documented By: Gregorio Carey DO 165 Signed By: <Electronically signed by Gregorio Carey DO> 08/21/22 170 [facility] Work Phone: 1(203) 199-771309-23-2022 History and physical note Author Gregorio Carey [facility] August 20, 2022 8:17pm Note Date/Time August 20, 2022 8:17pm [facility] [address] [place] [address] Hospitalist H&P Signed Patient: Pili Parikh MR#: [id number] : 2005 Acct:[id number] Age/Sex: 17 / F Adm Date: 2 Loc: Room: [address] [place] [address] Type: ADM IN Attending Dr: Gregorio Carey DO Copies to: [facility] Senior Gregorio Carey DO~ HPI DATE OF [...] % (Auto) 11.5 % (.) 08/20/22 16:21 [place] % (Auto) 3.7 % (.) 08/20/22 16:21 Eos % (Auto) 0.3 % (.) 08/20/22 16:21 Baso % (Auto) 0.4 % (.) 08/20/22 16:21 Neut # (Auto) 9.2 x10E3/uL (1.2-7.7) H 08/20/22 16:21 Lymph # (Auto) 1.3 x10E3/uL (1.20-4.8) 08/20/22 16:21 [place] # (Auto) 0.4 x10E3/uL (0.1-1.00) 08/20/22 16:21 [...] <Electronically signed by Gregorio Carey DO> 08/20/222016 [facility] Work Phone: 1(808) 557-764006-19-2022 Miscellaneous Notes* Telephone Encounter - Luana Mak [...] if she can find a way to [facility], she will go there. Reason for Disposition Chest pain [1] Chest pain lasts > 5 minutes AND [2] described as crushing, pressure-like, or heavy Protocols used: ABDOMINAL PAIN - [id number]-[id number]-CM, CHEST [id number]-[id number]-XV documented in this [facility]12-[facility]-2021 NoteHNO ID: [id number] Author: Rolando Wooten MD Service: ? Author [...] completed when applicable. 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 The patient wished to proceed. S/he was re-identified and a time out obtained. 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 Drainage [...] well, and there were no complication. MD Roalndo Cherry, [facility]11-12-2021 NoteHNO ID: [id number] Author: Rolando Wooten MD Service: ? Author [...] tonsillitis. 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 Medical History intermittent asthma Medical History lactose intolerance Medical History POTS diag 09/2015 Surgical History appendectomy 2018 Hospitalization History strepthroat, uri, dehydr ation, otitis media 2004 Hospitalization History dehydtation 2006 Hospitalization History [facility] [place] persistent vomiti ng 09/12- Hospitalization History 3 days vomitting blood 0 01/2017 Hospitalization History vomiting, abd pain, dehy dration [facility] [place] 07/22-07/27/2017 Hospitalization History RBC 08/14 [employer] Other Evaluation noteNo assessment information available [facility] Work Phone: Evaluation note* Diagnosis Onset Date Resolution Status Nausea & vomiting acute [facility] Work Phone: Evaluation note* Diagnosis Onset Date Resolution Status Dehydration acute Hypokalemia acute Intractable nausea and vomiting acute Nausea & vomiting acute [facility] Work Phone: Evaluation note* Diagnosis Onset Date Resolution Status Abdominal pain acute Acute hypokalemia acute Chest pain acute Dehydration acute Hypokalemia acute Hypovolemia acute [place] tear acute Nausea & vomiting acute [facility] Work Phone: History and physical note Author Eliana Bautista [facility] January 07, 2023 2:11am Note Date/Time January 06, 2023 5 :30pm [facility] [address] [place] [address] Hospitalist H&P Signed Patient: Pili Parikh MR#: [id number] : 2005 Acct:[id number] Age/Sex: 17 / F Adm Date: 3 Loc: 3T Room: [address] [place] [address] Type: ADM INOo Attending Dr: Eliana Bautista MD Copies to: [facility] FRANKY Starkey MD~ HPI DATE OF [...] noted in the HPI or below [facility] Attestation Statement: The following information was [...] promethazine 25 mg rectal suppository 25 mg ID Q6H PRN Nausea #10 supp 01/02/23 [Rx [...] % (Auto) 19.9 % (.) 01/06/23 14:20 [place] % (Auto) 7.4 % (.) 01/06/23 14:20 Eos % (Auto) 2.3 % (.) 01/06/23 14:20 Baso % (Auto) 0.3 % (.) 01/06/23 14:20 Nucleat RBC Rel Count 0.1 /100 WBC (0-0.5) 01/06/23 14:20 Neut # (Auto) 12.4 x10E3/uL (1.2-7.7) H 01/06/23 14:20 Lymph # (Auto) 3.5 x10E3/uL (1.20-4.8) 01/06/23 14:20 [place] # (Auto) 1.3 x10E3/uL (0.1-1.00) H 01/06/23 [...] pH 6.5 (5.0-9.0) 01/06/23 16:10 Ur Specific [place] 1.027 (1.001-1.030) 01/06/23 16:10 Urine Protein 100 [...] signed by Eliana Bautista MD> 01/07/23 0211 [facility] Work Phone: Hospital course Narrative No data available for this section [facility] Work Phone: Hospital Discharge instructions Additional Instructions Follow-up with your primary care doctor Return to ED if develop worsening symptoms [facility] Work Phone: Hospital Discharge instructions Additional Instructions Follow-up with your primary care doctor Return to the ED if you develop worsening symptoms or [facility] Work Phone: Hospital Discharge instructions Additional Instructions Take Phenergan as prescribed for nausea vomiting. Take Motrin and Tylenol as needed for muscle aches and pains. Take Carafate as prescribed.[facility] Work Phone: Hospital Discharge instructions Additional [...] you should first call your surgeon at [phone] for advice. If your are unable to contact your surgeon, seek help from a hospital emergency room. [facility] Work Phone: Hospital Discharge instructions Additional Instructions [...] with your family physician as soon as possible.[facility] Work Phone: Progress note No data available for this section [facility] Summary Purpose Family History No Family [...] DATE CREATED AUTHOR AUTHOR'S ORGANIZ ATION 07/14/2018 [facility] DATE CREATED AUTHOR AUTHOR'S ORGANIZ ATION 01/04/2022 [facility] DATE CREATED AUTHOR AUTHOR'S ORGANIZ ATION 02/02/2023 [facility] DATE CREATED AUTHOR AUTHOR'S ORGANIZ ATION 07/30/2024 [facility] DATE CREATED AUTHOR AUTHOR'S ORGANIZ ATION 08/02/2024 [facility]aeed [facility] DATE CREATED AUTHOR AUTHOR'S ORGANIZ ATION 08/05/2024 Sae[facility] DATE CREATED AUTHOR AUTHOR'S ORGANIZ ATION 11/09/2024 [facility] DATE CREATED AUTHOR AUTHOR'S ORGANIZ ATION 01/18/2025 [facility] Source Comments (unrecognize d section and content) In the event this informatio n is protected by the Federal Confidentiality of Alcohol and Drug Abuse Patient Records regulations: The Federal rules restrict any use of the information to criminally investigate or prosecute any alcohol or drug abuse patient.[facility] Reason for Visit (unrecogniz ed section and content) Reason Comments Abdominal Pain Care Teams (unrecognized sec tion and content) Team Status: Inactive Member Role Status [facility] Primary Care Provider MILY Bishop Attending Provide r Active Team Status: Inactive Member Role Status [facility] Primary Care Provider Active MILY Taylor Attending Provide r Active Team Status: Inactive Member Role Status [facility]ending [facility] Primary Care Provider Active Brennen Britt MD Attending Provider Active Team Status: Inactive Member Role Status Dates Services [facility] Primary Care Provider Active Art Bianchi , DO Emergency Provider Active Team Status: Inactive Member Role Status Dates Services [facility] Primary Care Provider Active Ravi Arguello , DO Emergency Provider Active Team Status: Inactive Member Role Status Dates Services [facility] Primary Care Provider Active Ender Donovan , DO Emergency Provider Active Team Status: Inactive Member Role Status Dates Services [facility] Primary Care Provider Active Gilson Castro DO Emergency Provider Active Team Status: Active Member Role Status Dates Services [facility] Primary Care Provider Ac tive Team Status: Inactive Member Role Status Dates Services [facility] Primary Care Provider Ac tive Joss Rivera APRN Emergency Provider Active Team Status: Inactive Member Role Status Dates Services [facility] Primary Care Provider Ac tive Colten Fry Jr, MD Emergency Provider Active Team Status: Inactive Member Role Status Dates Services [facility] Primary Care Provider Ac latesha Castro , DO Emergency Provider Active Team Status: Active Member Role Status [facility] Services [facility] Primary Care Provider Ac latesha Castro , DO Emergency Provider Active Gregorio Carey , DO Admit Provider, Attending Pr ovider Active Team Status: Inactive Member Role Status Dates Services [facility] Primary Care Provider Ac latesha Castro , DO Emergency Provider Active Gregoriopiecre Carey , DO Admit Provider, Attending Pr ovider Active Team Status: Inactive Member Role Status Dates Services [facility] Primary Care Provider Ac latesha Arguello , DO Emergency Provider Active Team Status: Inactive Member Role Status Dates Art Bianchi , DO Emergency Provider Active Services [facility] Primary Care Provider Ac tive Team Status: Inactive Member Role Status Dates Services [facility] Primary Care Provider Ac latesha Bolanos , DO Emergency Provider Active Team Status: Inactive Member Role Status Dates Services [facility] Primary Care Provider Ac lulve Art Bianchi , DO Emergency Provider Active Team Status: Inactive Member Role Status Dates Services [facility] Primary Care Provider Active Dixon Newberry MD Emergency Provider Active Team Status: Active Member Role Status Dates Services [facility] Primary Care Provider Active Team Status: Inactive Member Role Status Dates Services [facility] Primary Care Provider Active Federico Randolph , DO Emergency Provider Active Team Status: Active Member Role Status Dates Services [facility] Primary Care Provider Active Rd Brown PA-C Emergency Provider Active Eliana Bautista MD Admit Provider, Attending Provider Active Team Status: Inactive Member Role Status Dates [facility] Primary Care Provider Active Rd Brown PA-C Emergency Provider Active Eliana Bautista MD Admit Provider, Attending Provider Active Team Status: Inactive Member Role Status Dates [facility] Primary Care Provider Active Colten Miller MD Attending Provider Active Team Status: Inactive Member Role Status Dates [facility] Care Provider Active Start: March 18, 2024 End: March 19, 2024 Jacinto Benitez MD Emergency Provider Active Star t: March 18, 2024 End: March 19, 2024 Team Status: Inactive Member Role Status Dates [facility] Care Provider Active Start: August 03, 2024 [...] alternate section No data available for this section [...] BE BASED ON THE PRIMARY CLINICAL RECORDS. [employer] provides no warranty or guarantee of the accuracy or completeness of information in this document.
[2025-01-20] MEDS: KETOROLAC TROMETHAMINE 30 MG/ML VIAL IVP (11:05)
[2025-01-20] MEDS: ONDANSETRON PF 4 MG/2 ML VIAL IV (11:05)
[2025-01-20] MEDS: HALOPERIDOL LACTATE 5 MG/ML VIAL IV (11:06)
[2025-01-20] MEDS: DIPHENHYDRAMINE HCL 50 MG/ML VIAL 25 MG IVP (11:06)
[2025-01-20] MEDS: POTASSIUM CHLORIDE 20 MEQ in 0.9 % SODIUM CHLORIDE 250 ML 130 MEQ IV (11:12)
[2025-01-20] MEDS: PROMETHAZINE HCL 12.5 MG in 0.9 % SODIUM CHLORIDE 50 ML 202 MG IV (11:15)
[2025-01-20 11:26] LABS: BUN Creatinine Ratio 27.8; Carbon Dioxide 33.6 mmol/L (21.0-32.0); Chloride 94 mmol/L (98-107); Estimated GFR (African America >60 (>=60 mL/min/1.73m^2); Estimated GFR (Non-African Ame 60 (>=60 mL/min/1.73m^2); Glucose 125 mg/dL (74-106); Sodium 136 mmol/L (136-145)
[2025-01-20 11:28] LABS: Potassium 2.6 mmol/L (3.5-5.1)
--- NOTE | 2025-01-20 11:51 | ED.NAVMDI1 ---
HPI - Nausea/Vomiting/Diarrhea General Chief complaint: Nausea/Vomiting/Diarrhea Stated complaint: NAUSEA/VOMITING Time Seen by Provider: 01/20/25 10:21 Source: patient Mode of arrival: walk-in History of Present Illness HPI Narrative: cc - nausea/vomiting Patient with history of cyclic vomiting syndrome presents with an acute flare. She says that for the last 24 to 48 hours she has had worsening nausea and vomiting. She was evaluated a couple times in this emergency department last week and had some improvement with her typical regimen of Toradol, Phenergan, Zofran and Benadryl. Today she denies any other associated symptoms. No flank pain or abdominal pain. She had apparently been evaluated at [facility] last week after a fall but the scans were all negative. I talked with her about her Haldol allergy and she told me that it simply caused some itchiness and was an intolerance rather than true allergy. No flank pain or abdominal pain. She denies any chance of . She denies any urinary symptoms or blood in her urine or stool. Related Data Previous Rx's ?Medication ?Instructions ?Recorded ondansetron 4 mg disintegrating 4 mg PO Q6H PRN nausea and 01/17/25 tablet vomiting #12 tabs promethazine 25 mg tablet 25 mg PO Q6H PRN nausea and 01/17/25 vomiting #12 tabs Allergies Allergy/AdvReac Type Severity Reaction Status Date / Time metoclopramide (From Reglan) AdvReac Intermediate facial Verified 01/20/25 10:35 drooping haloperidol (From Haldol) AdvReac Mild icthy Verified 01/20/25 10:35 PFSH PFSH Medical History (Updated 01/20/25 @ 11:56 by Seven Watts) Leukocytosis ?D72.829 - Elevated white blood cell count, unspecified (ICD-10) Bipolar 1 disorder ?F31.9 - Bipolar disorder, unspecified (ICD-10) Migraine ?G43.909 - Migraine, unspecified, not intractable, without status migrainosus (ICD-10) POTS (postural orthostatic tachycardia syndrome) ?G90.A - Postural orthostatic tachycardia syndrome [POTS] (ICD-10) Cyclic vomiting syndrome ?R11.15 - Cyclical vomiting syndrome unrelated to migraine (ICD-10) Cyclic vomiting syndrome ?R11.15 - Cyclical vomiting syndrome unrelated to migraine (ICD-10) Fall ?W19.XXXA - Unspecified fall, initial encounter (ICD-10) Fracture of tibial plateau ?S82.143A - Displaced bicondylar fracture of unspecified tibia, initial encounter for closed fracture (ICD-10) Surgical History History of appendectomy ?Z90.49 - Acquired absence of other specified parts of digestive tract (ICD-10) Family History Father Family history of stroke Family history of diabetes mellitus Family history of cancer Family history of hypertension Family history of CHF (congestive heart failure) Grandfather Family history of stroke Grandmother Family history of myocardial infarction Mother Family history of diabetes mellitus Family history of cancer Social History Within the past year, how often did you have a drink containing alcohol: never Score interpretation: A score less than 3 is consistent with normal alcohol consumption. Smoking status: Current every day smoker Non-prescribed substance use: cannabis (any form) Little interest or pleasure in doing things: not at all Feeling down, depressed, or hopeless: not at all Do you think of yourself as: straight/heterosexual Gender Identity: female Exam Narrative Exam Narrative: Nurses notes and vital signs reviewed and patient is not hypoxic. afebrile General: Well-appearing and in no apparent distress. Skin: Warm, dry, no pallor noted. No rash. Head: Normocephalic, atraumatic. Neck: Supple, non-tender. No meningismus Eye: Pupils are equal, round and EOMI. No scleral icterus. Ears, Nose, Mouth, and Throat: Oral mucosa is moist Cardiovascular: Tachycardia. Respiratory: No accessory muscle use or respiratory distress. Lungs are clear to auscultation, no wheezing, rales or rhonchi Back: No CVA tenderness Musculoskeletal: normal ROM GI: Abdomen is soft, non-distended. Normal bowel sounds. No masses appreciated. No tenderness to palpation. No rebound, guarding, or rigidity noted. Neurological: A&O x4. No cranial nerve dysfunction observed. No truncal ataxia. Moves all extremities. Sensation intact. Psychiatric: Cooperative and interactive. Normal mood and affect. Constitutional Vital Signs, click to edit/add: Last Vital Signs Temp 98.4 F 01/20/25 10:18 Pulse 106 H 01/20/25 10:18 Resp 20 01/20/25 10:18 BP 134/98 H 01/20/25 10:18 Pulse Ox 100 01/20/25 10:18 O2 Del Method Room Air 01/20/25 10:18 Course Vital Signs Vital signs: Vital Signs Temperature 98.4 F 01/20/25 10:18 Pulse Rate 106 H 01/20/25 10:18 Respiratory Rate 20 01/20/25 10:18 Blood Pressure 134/98 H 01/20/25 10:18 Pulse Oximetry 100 01/20/25 10:18 Oxygen Delivery Method Room Air 01/20/25 10:18 Temperature 98.4 F 01/20/25 10:18 Pulse Rate 106 H 01/20/25 10:18 Respiratory Rate 01/20/25 10:18 Blood Pressure 134/98 H 01/20/25 10:18 Pulse Oximetry 100 01/20/25 10:18 Oxygen Delivery Method Room Air 01/20/25 10:18 MDM - Nausea/Vomiting/Diarrhea MDM Narrative Medical decision making narrative: After discussion, patient was agreeable to trying Haldol again. She also received IV Phenergan, IV Toradol, IV Zofran and IV Benadryl. In the past she has been found to have hypokalemia, therefore I asked that she received normal saline IV fluid with potassium chloride inside. Labs = potassium decreased at 2.6 today. She has elevated CO2 at 33.6, elevated BUN at 32, elevated creatinine 1.15. Magnesium was slightly elevated as well. Likely associated with her difficulty taking in oral fluids and food. Patient felt better after ED treatment and asked to be discharged home. I encouraged her to take the previously prescribed potassium and to try and eat foods that are higher in potassium over the next several days. I also encouraged her to increase her fluid intake. Lab Data Attestation: I reviewed the patient's lab results. Labs: Lab Results 01/20/25 Range/Units 11:00 Sodium 136 (136-145) mmol/L Potassium 2.6 L* (3.5-5.1) mmol/L Chloride 94 L (98-107) mmol/L Carbon Dioxide 33.6 H (21.0-32.0) mmol/L Anion Gap 11.0 BUN 32.0 H (7.0-18.0) mg/dL Creatinine 1.15 H (0.55-1.02) mg/dL Est GFR ( Amer) >60 (>=60 mL/min/1.73m^2) Est GFR (Non-Af Amer) 60 (>=60 mL/min/1.73m^2) BUN/Creatinine Ratio 27.8 Glucose 125 H (74-106) mg/dL Calcium 10.0 (8.5-10.1) mg/dL Magnesium 3.0 H (1.8-2.4) mg/dL Discharge Plan Discharge Chief Complaint: Nausea/Vomiting/Diarrhea Clinical Impression: Cyclic vomiting syndrome, Hypokalemia Patient Disposition: Home, Self-Care Time of Disposition Decision: 11:56 Prescriptions / Home Meds: No Action promethazine 25 mg tablet 25 mg PO Q6H PRN (Reason: nausea and vomiting) Qty: 12 0RF ondansetron 4 mg tablet,disintegrating 4 mg PO Q6H PRN (Reason: nausea and vomiting) Qty: 12 0RF Print Language: [place] Instructions: Hypokalemia (ED), Cyclic Vomiting Syndrome (ED) Referrals: Modesta Chand, DIVER TENDER [Primary Care Provider] - 1 week
== END 2025-01-20 12:12 | disposition home or self-care (01) ==
PROVIDERS: Emergency Provider Emergency Medicine; PCP Nurse Practitioner Family
DX: R11.15 Cyclical vomiting syndrome unrelated to migraine (principal); E87.6 Hypokalemia; R11.2 Nausea with vomiting, unspecified; F17.200 Nicotine dependence, unspecified, uncomplicated
CPT/HCPCS: 36415; 80048; 83735; 96365; 96368; 96375; 99284; J1200; J1630; J1885; J2405; J2550; J3480

== ENCOUNTER 2025-01-21 17:54 | Emergency (ER) | payer OTHER, SELFPAY ==
[2025-01-21 17:57] VITALS: BP 122/92; PULSE 100; TEMP 37.1; O2SAT 99; BMI 34.8
--- NOTE | 2025-01-21 18:07 | ECG_ITS ---
[facility] Test Date: 2025-01-21 Pat Name: PILI SEGURA Department: Room: - Gender: Female Histologic Aide: : 2005 Requested By: Order Number: [id number] Reading MD: HILTON WOLFE Measurements Intervals [place] Rate: 85 P: 63 [place]: 140 QRS: 44 QRSD: 82 T: 35 QT: 366 QTc: 408 Interpretive Statements 1100 Sinus rhythm 1102 Sinus arrhythmia 9110 normal ECG Compared to ECG 10/26/2024 11:32:58 No significant changes Electronically Signed On 01-22-2025 6:48:14 EST by HILTON WOLFE
--- NOTE | 2025-01-21 18:36 | PC.NURSE ---
During initial triage, patient did not tell this RN that patient was having chest pain. Patient told ER Registration of symptom, not this RN. This RN asked physician if a EKG should be performed and physician stated yes and if normal, can wait in the waiting room. This RN then called patient back into triage to perform EKG. EKG was given to provider. No new orders. When patient was in triage room, patient states I just have abdominal acid and an abscess on my right breast. No other complaints of chest pain. Patients mother walked into triage room approximately 10 minutes later, demanding this RN's name. This RN asked mother the issue and mother states I told you she was having chest pains and you did not do an EKG or take my daughter to a room. [facility]'s phone number provided to patients mother.
== END 2025-01-21 20:20 | disposition left against medical advice (07) ==
PROVIDERS: Emergency Provider Emergency Medicine; PCP Nurse Practitioner Family
DX: Z53.21 Procedure and treatment not carried out due to patient leaving prior to being seen by health care provider (principal)
CPT/HCPCS: 93005; 99281; 99283

== ENCOUNTER 2025-01-23 08:28 | Observation (INO) | payer OTHER, SELFPAY ==
[2025-01-23] VITALS (10 sets, daily range): BP systolic 119–164; BP diastolic 66–98; PULSE 47–80; TEMP 36.6–37; O2SAT 99–100; BMI 34.8; BMI 35.0
--- NOTE | 2025-01-23 08:30 | PC.NURSE ---
while doing pt triage, pt father is threatening to call administration if pt is not admitting this visit, pt father states the doctor is an idiot and doesn't known what they are doing .
[2025-01-23] MEDS: ONDANSETRON PF 4 MG/2 ML VIAL IV (09:21)
[2025-01-23] MEDS: 0.9 % SODIUM CHLORIDE 1,000 ML 1000 ML IV (09:21)
[2025-01-23] MEDS: KETOROLAC TROMETHAMINE 30 MG/ML VIAL 15 MG IVP (09:22)
[2025-01-23 09:25] LABS: Basophils Percent Auto 0.4 % (0.2-2.0); Eosinophils Absolute Auto 0.1 10^3/uL (0.0-0.7); Eosinophils Percent Auto 0.6 % (0.9-7.0); Hemoglobin 14.9 g/dL (12.0-16.0); Immature Granulocytes Abs Auto 0.08 10^3/uL (0.00-0.03); Immature Granulocytes Pct Auto 0.8 % (0.0-0.5); Lymphocytes Absolute Auto 1.5 10^3/uL (1.2-3.8); Lymphocytes Percent Auto 15.5 % (20.5-60.0); Mean Corpuscular HGB Conc 33.1 g/dL (29.9-35.2); Mean Corpuscular Hemoglobin 28.3 pg (26.7-34.0); Mean Corpuscular Volume 85.4 fL (81.0-99.0); Mean Platelet Volume 10.7 fL (9.5-13.5); Monocytes Absolute Auto 0.6 10^3/uL (0.3-0.8); Monocytes Percent Auto 6.6 % (1.7-12.0); Neutrophils Absolute Auto 7.4 10^3/uL (1.4-6.5); Neutrophils Percent Auto 76.1 % (43.0-75.0); Platelet Count 297 10^3/uL (150-450); Red Blood Count 5.27 10^6/uL (4.20-5.40); Red Cell Distribution Width 12.3 % (11.0-15.0); White Blood Count 9.7 10^3/uL (4.0-11.0)
[2025-01-23 09:34] LABS: Bilirubin Urine SMALL (NEGATIVE); Blood Urine NEGATIVE (NEGATIVE); Clarity Urine CLEAR (CLEAR); Color Urine YELLOW (YELLOW); Glucose Urine UA 100 mg/dL (NEGATIVE); Ketones Urine TRACE mg/dL (NEGATIVE); Leukocyte Esterase Urine TRACE (NEGATIVE); Nitrite Urine NEGATIVE (NEGATIVE); Protein Urine 100 mg/dL (NEG/TRACE); Specific Gravity Urine 1.015 (1.005-1.025); Urobilinogen Urine >=8.0 EU/dL (0.2-1.0)
[2025-01-23 09:42] LABS: Alanine Aminotransferase 117 U/L (14-59); Albumin Globulin Ratio 1.3; Albumin Level 4.4 g/dL (3.4-5.0); Alkaline Phosphatase 74 U/L (46-116); Anion Gap 10.3; Aspartate Amino Transferase 68 U/L (15-37); BUN Creatinine Ratio 16.3; Bilirubin Total 1.4 mg/dL (0.2-1.0); Calcium 9.7 mg/dL (8.5-10.1); Carbon Dioxide 33.4 mmol/L (21.0-32.0); Chloride 96 mmol/L (98-107); Estimated GFR (African America >60 (>=60 mL/min/1.73m^2); Estimated GFR (Non-African Ame >60 (>=60 mL/min/1.73m^2); Globulin 3.3 g/dL; Glucose 114 mg/dL (74-106); Sodium 137 mmol/L (136-145); Total Protein 7.7 g/dL (6.4-8.2)
[2025-01-23 09:43] LABS: Potassium 2.7 mmol/L (3.5-5.1)
[2025-01-23 09:44] LABS: Urine Microscopic Indicated YES
[2025-01-23 10:02] LABS: Bacteria Urine MODERATE #/HPF (NONE SEEN); RBC Urine 0-2 #/HPF (0-2)
[2025-01-23 10:03] LABS: Cast Seen? NONE SEEN #/LPF (NONE SEEN); Crystals Seen? None Seen #/HPF (None Seen); Mucus Urine MODERATE (NONE SEEN); Squamous Epithelial Cell Urine FEW #/LPF (NONE/RARE); Urine Culture Indicated YES-FRMC
--- NOTE | 2025-01-23 10:41 | ED_ITS ---
HPI HPI - General Adult General Chief complaint: Nausea/Vomiting/Diarrhea Stated complaint: VOMITTING ABDOMINAL PAIN Time Seen by Provider: 01/23/25 08:30 Source: patient Mode of arrival: walk-in Limitations: no limitations History of Present Illness HPI narrative: Patient presents to ED complaining of nausea vomiting and not feeling well. She has a history of POTS. Patient states the POTS causes cyclic vomiting. Patient has been in and out of the emergency room here in [facility] trying to control her symptoms. Dad reports that once she gets in a cycle like this she does not usually get out of it until she is admitted to the hospital for IV fluids and Zofran. Patient and dad state that this has been going on for 8 days now and she is not getting any better. She is unable to keep anything down at home and she complains of generalized weakness and generalized stomach pain. Patient states she does use marijuana but has not used any in the past 2 weeks. She states it does help with her POTS syndrome. Related Data Previous Rx's ?Medication ?Instructions ?Recorded ondansetron 4 mg disintegrating 4 mg PO Q6H PRN nausea and 01/17/25 tablet vomiting #12 tabs promethazine 25 mg tablet 25 mg PO Q6H PRN nausea and 01/17/25 vomiting #12 tabs Allergies Allergy/AdvReac Type Severity Reaction Status Date / Time metoclopramide (From Reglan) AdvReac Intermediate facial Verified 01/23/25 08:34 drooping haloperidol (From Haldol) AdvReac Mild icthy Verified 01/23/25 08:34 Opioid HPI Opioid Management Most Recent Opioid Data: Last Pain Scale 4 01/16/25 08:56 01/16/25 Last MAR Pain Assessment 01/23/25 09:22 Ur Phencyclidine Scrn Negative (NEGATIVE) 10/26/24 14:00 09/29 08/21 Review of Systems ROS Status of ROS 10 or more systems reviewed and unremark able except as noted in history and below [facility] Medical History (Updated 01/23/25 @ 10:16 by Makayla Monk DO) Leukocytosis ?D72.829 - Elevated white blood cell count, unspecified (ICD-10) Bipolar 1 disorder ?F31.9 - Bipolar disorder, unspecified (ICD-10) Migraine ?G43.909 - Migraine, unspecified, not intractable, without status migrainosus (ICD-10) POTS (postural orthostatic tachycardia syndrome) ?G90.A - Postural orthostatic tachycardia syndrome [POTS] (ICD-10) Cyclic vomiting syndrome ?R11.15 - Cyclical vomiting syndrome unrelated to migraine (ICD-10) Cyclic vomiting syndrome ?R11.15 - Cyclical vomiting syndrome unrelated to migraine (ICD-10) Fall ?W19.XXXA - Unspecified fall, initial encounter (ICD-10) Fracture of tibial plateau ?S82.143A - Displaced bicondylar fracture of unspecified tibia, initial encounter for closed fracture (ICD-10) Surgical History History of appendectomy ?Z90.49 - Acquired absence of other specified parts of digestive tract (ICD- 10) Family History Father Family history of stroke Family history of diabetes mellitus Family history of cancer Family history of hypertension Family history of CHF (congestive heart failure) Grandfather Family history of stroke Grandmother Family history of myocardial infarction Mother Family history of diabetes mellitus Family history of cancer Social History Within the past year, how often did you have a drink containing alcohol: never Score interpretation: A score less than 3 is consistent with normal alcohol consumption. Smoking status: Current every day smoker Non-prescribed substance use: cannabis (any form) Little interest or pleasure in doing things: not at all Feeling down, depressed, or hopeless: not at all Do you think of yourself as: straight/heterosexual Gender Identity: female Exam Narrative Exam Narrative: Time Seen: [] Vital Signs: [Per nurse's notes.] General: [Alert] Skin: [Warm, dry, no rash.] Head: [Normocephalic, atraumatic.] Neck: [Supple, trachea midline.] Eye: [Pupils are equal, round and reactive to light, extraocular movements are intact, normal conjunctiva.] Ears, nose, mouth and throat: oral mucosa moist. Cardiovascular: [Regular rate and rhythm, no murmur.] Respiratory: [Lungs are clear to auscultation, respirations are non-labored, breath sounds are equal.] Chest wall: [No tenderness, no deformity.] Gastrointestinal: [Soft, nontender, non distended, normal bowel sounds.] MSK: 5 out of 5 muscle strength x 4 extremities no calf pain or edema Lymphatics: [No lymphadenopathy.] Psychiatric: [Cooperative, appropriate mood & affect.] Neurological: [Alert and oriented to person, place, time, and situation, no focal neurological deficit observed.] Constitutional Vital Signs, click to edit/add: Last Vital Signs Temp 98.6 F 01/23/25 08:35 Pulse 60 01/23/25 08:35 Resp 18 01/23/25 08:35 BP 164/98 H 01/23/25 08:35 Pulse Ox 100 01/23/25 08:35 O2 Del Method Room Air 01/23/25 08:35 Course Vital Signs Vital signs: Vital Signs Temperature 98.6 F 01/23/25 08:35 Pulse Rate 60 01/23/25 08:35 Respiratory Rate 18 01/23/25 08:35 Blood Pressure 164/98 H 01/23/25 08:35 Pulse Oximetry 100 01/23/25 08:35 Oxygen Delivery Method Room Air 01/23/25 08:35 Temperature 98.6 F 01/23/25 08:35 Pulse Rate 60 01/23/25 08:35 Respiratory Rate 18 01/23/25 08:35 Blood Pressure 164/98 H 01/23/25 08:35 Pulse Oximetry 100 01/23/25 08:35 Oxygen Delivery Method Room Air 01/23/25 08:35 Medical Decision Making MDM Narrative Medical decision making narrative: Patient's potassium was low at 2.7. Patient will be admitted for IV potassium replacement IV fluids and nausea medication to control the nausea and vomiting. I spoke to Dr. Garber who is comfortable with care plan for admission. Patient and father are comfortable with admission plan. Patient is stable in ED and potassium was started in the ED. Differential Diagnosis Differential Diagnosis: Dehydration POTS cyclic vomiting hypokalemia Lab Data Lab results reviewed: Yes I reviewed the patient's lab results Labs: Lab Results 01/23/25 01/23/25 Range/Units 09:15 09:25 WBC 9.7 (4.0-11.0) 10^3/uL RBC 5.27 (4.20-5.40) 10^6/uL Hgb 14.9 (12.0-16.0) g/dL Hct 45.0 (36.0-48.0) % MCV 85.4 (81.0-99.0) fL MCH 28.3 (26.7-34.0) pg MCHC 33.1 (29.9-35.2) g/dL RDW 12.3 (11.0-15.0) % Plt Count 297 (150-450) 10^3/uL MPV 10.7 (9.5-13.5) fL Neut % (Auto) 76.1 H (43.0-75.0) % Lymph % (Auto) 15.5 L (20.5-60.0) % [place] % (Auto) 6.6 (1.7-12.0) % Eos % (Auto) 0.6 L (0.9-7.0) % Baso % (Auto) 0.4 (0.2-2.0) % Neut # (Auto) 7.4 H (1.4-6.5) 10^3/uL Lymph # (Auto) 1.5 (1.2-3.8) 10^3/uL [place] # (Auto) 0.6 (0.3-0.8) 10^3/uL Eos # (Auto) 0.1 (0.0-0.7) 10^3/uL Baso # (Auto) 0.0 (0.0-0.1) 10^3/uL Abs Immat Gran (auto) 0.08 H (0.00-0.03) 10^3/uL Imm/Tot Granulo (auto) 0.8 H (0.0-0.5) % Sodium 137 (136-145) mmol/L Potassium 2.7 L* (3.5-5.1) mmol/L Chloride 96 L (98-107) mmol/L Carbon Dioxide 33.4 H (21.0-32.0) mmol/L Anion Gap 10.3 BUN 16.0 (7.0-18.0) mg/dL Creatinine 0.98 (0.55-1.02) mg/dL Est GFR ( Amer) >60 (>=60 mL/min/1.73m^2) Est GFR (Non-Af Amer) >60 (>=60 mL/min/1.73m^2) BUN/Creatinine Ratio 16.3 Glucose 114 H (74-106) mg/dL Calcium 9.7 (8.5-10.1) mg/dL Total Bilirubin 1.4 H (0.2-1.0) mg/dL AST 68 H (15-37) U/L ALT 117 H (14-59) U/L Alkaline Phosphatase 74 (46-116) U/L Total Protein 7.7 (6.4-8.2) g/dL Albumin 4.4 (3.4-5.0) g/dL Globulin 3.3 g/dL Albumin/Globulin Ratio 1.3 Urine Color Yellow (YELLOW) Urine Clarity Clear (CLEAR) Urine pH 8.0 (5.0-9.0) Ur Specific [place] 1.015 (1.005-1.025) Urine Protein 100 A (NEG/TRACE) mg/dL Urine Glucose (UA) 100 A (NEGATIVE) mg/dL Urine Ketones Trace A (NEGATIVE) mg/dL Urine Occult Blood Negative (NEGATIVE) Urine Nitrite Negative (NEGATIVE) Urine Bilirubin Small A (NEGATIVE) Urine Urobilinogen >=8.0 (0.2-1.0) EU/dL Ur Leukocyte Esterase Trace A (NEGATIVE) Urine RBC 0-2 (0-2) #/HPF Urine WBC 2-5 A (NONE SEEN) #/HPF Ur Squamous Epith Cells Few A (NONE/RARE) #/LPF Urine Crystals None seen (None Seen) #/HPF Urine Bacteria Moderate A (NONE SEEN) #/HPF Urine Casts None seen (NONE SEEN) #/LPF Urine Mucus Moderate A (NONE SEEN) Ur Culture Indicated? Yes-[facility] [place] Discharge Plan Discharge Chief Complaint: Nausea/Vomiting/Diarrhea Clinical Impression: Hypokalemia, Nausea and vomiting, Pott's disease Patient Disposition: Admitted as Observation Time of Disposition Decision: 10:16 Condition: Fair
[2025-01-23] MEDS: POTASSIUM CHLORIDE 40 MEQ in 0.9 % SODIUM CHLORIDE 250 ML 67.5 MEQ IV (11:04)
[2025-01-23 11:35] LABS: HCG Qualitative Urine* NEGATIVE (NEGATIVE); Internal Control Within Normal Limits
[2025-01-23 11:41] LABS: Cannabinoid Screen Urine POSITIVE (NEGATIVE); Cocaine Screen Urine NEGATIVE (NEGATIVE); Methamphetamines Screen Urine NEGATIVE (NEGATIVE); Phencyclidine Screen Urine NEGATIVE (NEGATIVE)
[2025-01-23 11:43] LABS: Amphetamine Screen Urine NEGATIVE (NEGATIVE); Barbiturates Screen Urine NEGATIVE (NEGATIVE); Benzodiazepines Screen Urine NEGATIVE (NEGATIVE); Buprenorphine Screen Urine NEGATIVE (NEGATIVE); Methadone Screen Urine NEGATIVE (NEGATIVE); Opiate Screen Urine POSITIVE (NEGATIVE); Oxycodone Screen Urine NEGATIVE (NEGATIVE); Tricyclic Antidepressant Urine NEGATIVE (NEGATIVE)
[2025-01-23] MEDS: PANTOPRAZOLE SODIUM 40 MG VIAL IV (11:54)
[2025-01-23] MEDS: LACTATED RINGER'S SOLUTION 1,000 ML 67 ML IV (11:54)
--- NOTE | 2025-01-23 14:08 | P.HP_ITS ---
HPI H&P: HPI History of Present Illness Chief complaint: VOMITTING, ABDOMINAL PAIN, hypokalemia, n/v, pots Narrative: patient is a 20 y.o white female with past medical history of BUSCH who presented to the ER today with increase vomiting, nausea that has been present about 1-2 weeks. She has history of THC use and does get cyclic vomiting which makes her BUSCH worse. She states her sister and children recently moved into the house and all have had the flu. ER findings also consistent with low potassium of 2.6. Patient was started on IVF and IV potassium, given anti- emetics and admitted to the hospitalist for further plan of care. She has not vomited since being in the ER. Opioid HPI Opioid Management Most Recent Pain and Opioid Data: Last Pain Scale 6 01/23/25 11:36 01/23/25 Last Pain Assessment 01/23/25 14:09 Last MAR Pain Assessment 01/23/25 09:22 Last ORT Total Score 6 01/23/25 11:33 01/23/25 Last ORT Risk Category Moderate Risk 01/23/25 11:33 01/23/25 Ur Phencyclidine Scrn Negative (NEGATIVE) 01/23/25 09:25 0205/22 Review of Systems ROS Narrative ROS: a complete review of systems were reviewed with patient and are positive as below or listed in History of Chief Complaint. General: no fever, chills, night sweats Head: no headache, trauma, visual changes, nausea or vomiting Skin: no reported rashes, itching or sores Eyes: no blurriness of vision Ears: no reported hearing loss, vertigo, earache, or tinnitus Throat: no sore throat, hoarseness, swelling of neck, or tongue pain Heart: no chest pain Lungs: no shortness of breath or cough GI: no diarrhea but vomiting/nausea Urinary: no urinary urgency, frequency or pain Neuro: no numbness or tingling HEM: no bleeding issues or bruising ENDO: no thyroid problems Psych: no anxiety or depression [facility] Medical History (Updated 01/23/25 @ 14:11 by Johanna Garber DO) Marijuana use ?F12.90 - Cannabis use, unspecified, uncomplicated (ICD-10) Asthma ?J45.909 - Unspecified asthma, uncomplicated (ICD-10) Leukocytosis ?D72.829 - Elevated white blood cell count, unspecified (ICD-10) Bipolar 1 disorder ?F31.9 - Bipolar disorder, unspecified (ICD-10) Migraine ?G43.909 - Migraine, unspecified, not intractable, without status migrainosus (ICD-10) POTS (postural orthostatic tachycardia syndrome) ?G90.A - Postural orthostatic tachycardia syndrome [POTS] (ICD-10) Cyclic vomiting syndrome ?R11.15 - Cyclical vomiting syndrome unrelated to migraine (ICD-10) Cyclic vomiting syndrome ?R11.15 - Cyclical vomiting syndrome unrelated to migraine (ICD-10) Fall ?W19.XXXA - Unspecified fall, initial encounter (ICD-10) Fracture of tibial plateau ?S82.143A - Displaced bicondylar fracture of unspecified tibia, initial e ncounter for closed fracture (ICD-10) Surgical History History of appendectomy ?Z90.49 - Acquired absence of other specified parts of digestive tract (ICD- 10) Family History Father Family history of stroke Family history of diabetes mellitus Family history of cancer Family history of hypertension Family history of CHF (congestive heart failure) Grandfather Family history of stroke Grandmother Family history of myocardial infarction Mother Family history of diabetes mellitus Family history of cancer Social History Within the past year, how often did you have a drink containing alcohol: never Score interpretation: A score less than 3 is consistent with normal alcohol consumption. Smoking status: Current every day smoker Non-prescribed substance use: cannabis (any form) Highest level of school completed/degree received: high school graduate Little interest or pleasure in doing things: several days Feeling down, depressed, or hopeless: several days Do you think of yourself as: straight/heterosexual Gender Identity: female Meds Home Medications and Allergies Home Medications ?Medication ?Instructions ?Recorded ?Confirmed ?Type ondansetron 4 mg disintegrating 4 mg PO Q6H PRN nausea and 01/17/25 01/23/25 Rx tablet vomiting #12 tabs promethazine 25 mg tablet 25 mg PO Q6H PRN nausea and 01/17/25 01/23/25 Rx vomiting #12 tabs trazodone 50 mg tablet 50 mg PO DAILY PRN insomnia 01/23/25 01/23/25 History Allergies Allergy/AdvReac Type Severity Reaction Status Date / Time metoclopramide (From Reglan) AdvReac Intermediate facial Verified 01/23/25 08:34 drooping haloperidol (From Haldol) AdvReac Mild icthy Verified 01/23/25 08:34 Exam Narrative Exam Narrative: General: Patient is alert, and oriented to person, place and time with normal affect, proper hygiene Skin: no visible rashes, or ulcers Head: atraumatic, acephalic Eyes: PERRLA, no nystagmus present, conjunctiva clear, no scleral icterus Ears: normal Tympanic Membrane, normal gross auditory acuity Nose: symmetric, no discharge, no maxillary or frontal sinus tenderness Mouth/Throat: no erythema, exudate, or tonsillar enlargement, normal dentition Neck: no masses palpated, normal thyroid, no JVD or audible carotid bruits Heart: Normal rate and rhythm, no murmurs/rubs/gallops Lungs: no audible wheezes, crackles and normal breath sounds all lung arevalo Abdomen: Normal audible bowel sounds, no distension, No palpable masses, no organomegaly, no rebound/guarding/ or rigidity Musculoskeletal: muscle atrophy noted, ROM is limited due to being in hospital bed, no swelling bilateral lower extremities Vascular: Normal carotid, radial, femoral, posterior tibial, and dorsalis pedis pulses Lymph: no supraclavicular, axillary, or anterior/posterior cervical adenopathy Neuro: CN II-X grossly intact, normal sensation upper and lower extremities Constitutional Vital Signs, click to edit/add: Last Vital Signs Temp 98.2 F 01/23/25 11:29 Pulse 47 L 01/23/25 11:29 Resp 16 01/23/25 11:29 BP 125/74 01/23/25 11:29 Pulse Ox 99 01/23/25 11:29 O2 Del Method Room Air 01/23/25 11:29 Results Labs Labs: Short CBC 01/23/25 Range/Units 09:15 WBC 9.7 (4.0-11.0) 10^3/uL Hgb 14.9 (12.0-16.0) g/dL Hct 45.0 (36.0-48.0) % Plt Count 297 (150-450) 10^3/uL BMP 01/23/25 09:15 Sodium 137 Potassium 2.7 L* Chloride 96 L Carbon Dioxide 33.4 H BUN 16.0 Creatinine 0.98 Glucose 114 H Calcium 9.7 Liver Function 01/23/25 Range/Units 09:15 Total Bilirubin 1.4 H (0.2-1.0) mg/dL AST 68 H (15-37) U/L ALT 117 H (14-59) U/L Alkaline Phosphatase 74 (46-116) U/L Albumin 4.4 (3.4-5.0) g/dL Urine 01/23/25 Range/Units 09:25 Urine Color Yellow (YELLOW) Urine Clarity Clear (CLEAR) Urine pH 8.0 (5.0-9.0) Ur Specific [place] 1.015 (1.005-1.025) Urine Protein 100 A (NEG/TRACE) mg/dL Urine Glucose (UA) 100 A (NEGATIVE) mg/dL Assessment and Plan Assessment and Plan (1) Cyclic vomiting syndrome: Assessment and Plan: continue Zofran and Phenergan as needed. 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
[2025-01-23 17:30] LABS: BUN Creatinine Ratio 17.1; Calcium 8.6 mg/dL (8.5-10.1); Carbon Dioxide 31.2 mmol/L (21.0-32.0); Chloride 101 mmol/L (98-107); Estimated GFR (African America >60 (>=60 mL/min/1.73m^2); Estimated GFR (Non-African Ame >60 (>=60 mL/min/1.73m^2); Glucose 90 mg/dL (74-106); Potassium 3.2 mmol/L (3.5-5.1); Sodium 139 mmol/L (136-145)
[2025-01-23] MEDS: LACTATED RINGER'S SOLUTION 1,000 ML 125 ML IV (21:34)
[2025-01-24] VITALS (7 sets, daily range): BP systolic 115–119; BP diastolic 74–80; PULSE 39–70; TEMP 36.4–36.5; O2SAT 99–100
[2025-01-24] MEDS: LACTATED RINGER'S SOLUTION 1,000 ML 125 ML IV (05:45)
[2025-01-24 06:52] LABS: Basophils Absolute Auto 0.1 10^3/uL (0.0-0.1); Basophils Percent Auto 0.6 % (0.2-2.0); Eosinophils Absolute Auto 0.6 10^3/uL (0.0-0.7); Eosinophils Percent Auto 5.5 % (0.9-7.0); Hematocrit 42.9 % (36.0-48.0); Hemoglobin 13.9 g/dL (12.0-16.0); Immature Granulocytes Abs Auto 0.05 10^3/uL (0.00-0.03); Immature Granulocytes Pct Auto 0.5 % (0.0-0.5); Lymphocytes Percent Auto 38.1 % (20.5-60.0); Mean Corpuscular HGB Conc 32.4 g/dL (29.9-35.2); Mean Corpuscular Hemoglobin 28.7 pg (26.7-34.0); Mean Corpuscular Volume 88.5 fL (81.0-99.0); Mean Platelet Volume 10.7 fL (9.5-13.5); Monocytes Absolute Auto 1.1 10^3/uL (0.3-0.8); Monocytes Percent Auto 10.4 % (1.7-12.0); Neutrophils Absolute Auto 4.8 10^3/uL (1.4-6.5); Neutrophils Percent Auto 44.9 % (43.0-75.0); Platelet Count 221 10^3/uL (150-450); Red Blood Count 4.85 10^6/uL (4.20-5.40); Red Cell Distribution Width 12.4 % (11.0-15.0); White Blood Count 10.6 10^3/uL (4.0-11.0)
[2025-01-24 06:55] LABS: Alanine Aminotransferase 87 U/L (14-59); Albumin Globulin Ratio 1.3; Albumin Level 3.6 g/dL (3.4-5.0); Alkaline Phosphatase 64 U/L (46-116); Aspartate Amino Transferase 43 U/L (15-37); BUN Creatinine Ratio 9.3; Bilirubin Total 0.9 mg/dL (0.2-1.0); Calcium 8.9 mg/dL (8.5-10.1); Carbon Dioxide 30.1 mmol/L (21.0-32.0); Chloride 103 mmol/L (98-107); Estimated GFR (African America >60 (>=60 mL/min/1.73m^2); Estimated GFR (Non-African Ame >60 (>=60 mL/min/1.73m^2); Globulin 2.7 g/dL; Glucose 86 mg/dL (74-106); Magnesium 2.4 mg/dL (1.8-2.4); Potassium 3.1 mmol/L (3.5-5.1); Sodium 139 mmol/L (136-145); Total Protein 6.3 g/dL (6.4-8.2)
--- NOTE | 2025-01-24 09:13 | P.DS_ITS ---
DS: Providers Provider Date of admission: 01/23/25 11:13 Primary care physician: Modesta Chand NP Admitting clinician: Johanna Garber Consults: 01/23/25 Consult to Dietitian Routine Reason for consultation: Weight loss Discharging clinician: Johanna Garber DS: Diagnosis Discharge Diagnosis (1) Cyclic vomiting syndrome: (2) Acute hypokalemia: (3) Pott's disease: (4) Marijuana use: DS: Summary Hospital Course Hospital Course: patient is a 20 y.o white female with past medical history of BUSCH who presented to the ER with increase vomiting, nausea that has been present about 1-2 weeks. She has history of THC use and does get cyclic vomiting which makes her BUSCH worse. She states her sister and children recently moved into the house and all have had the flu. ER findings also consistent with low potassium of 2.6. Patient was started on IVF and IV potassium, given anti-emetics and admitted to the hospitalist for further plan of care. She has not vomited since being in the ER she continued to get IVF. At the time of discharge she is tolerating full liquid diet. potassium was 3.1 today. I will prescribe her 10meq BID x 7 days, Rectal Phenergan suppositories, and oral Zofran. Vitals are stable, labs are stable. She has close follow up with her PCP. She may return to the ER with any worsening signs or symptoms. Status at Discharge Functional status at discharge: independent ambulation Overall status at discharge: patient is progressing back to baseline Time Spent with Patient Time attestation: Total time spent providing and/or coordinating discharge services: Time spent: greater than 30 minutes Exam Narrative Exam Narrative: General: Patient is alert, and oriented to person, place and time with normal affect, proper hygiene Skin: no visible rashes, or ulcers Head: atraumatic, acephalic Eyes: PERRLA, no nystagmus present, conjunctiva clear, no scleral icterus Ears: normal Tympanic Membrane, normal gross auditory acuity Nose: symmetric, no discharge, no maxillary or frontal sinus tenderness Mouth/Throat: no erythema, exudate, or tonsillar enlargement, normal dentition Neck: no masses palpated, normal thyroid, no JVD or audible carotid bruits Heart: Normal rate and rhythm, no murmurs/rubs/gallops Lungs: no audible wheezes, crackles and normal breath sounds all lung arevalo Abdomen: Normal audible bowel sounds, no distension, No palpable masses, no organomegaly, no rebound/guarding/ or rigidity Musculoskeletal: muscle atrophy noted, ROM is limited due to being in hospital bed, no swelling bilateral lower extremities Vascular: Normal carotid, radial, femoral, posterior tibial, and dorsalis pedis pulses Lymph: no supraclavicular, axillary, or anterior/posterior cervical adenopathy Neuro: CN II-X grossly intact, normal sensation upper and lower extremities Constitutional Vital Signs, click to edit/add: Last Vital Signs Temp 97.7 F 01/24/25 08:17 Pulse 42 L 01/24/25 08:17 Resp 18 01/24/25 08:17 BP 115/74 01/24/25 08:17 Pulse Ox 99 01/24/25 08:17 O2 Del Method Room Air 01/24/25 08:17 DS: Data Data Completed and Pending Labs on day of discharge: Labs from last 24 hours 01/24/25 01/23/25 01/23/25 06:31 16:59 09:25 WBC 10.6 RBC 4.85 Hgb 13.9 Hct 42.9 MCV 88.5 MCH 28.7 MCHC 32.4 RDW 12.4 Plt Count 221 MPV 10.7 Neut % (Auto) 44.9 Lymph % (Auto) 38.1 Kleberg % (Auto) 10.4 Eos % (Auto) 5.5 Baso % (Auto) 0.6 Neut # (Auto) 4.8 Lymph # (Auto) 4.0 H Kleberg # (Auto) 1.1 H Eos # (Auto) 0.6 Baso # (Auto) 0.1 Abs Immat Gran (auto) 0.05 H Imm/Tot Granulo (auto) 0.5 Sodium 139 139 Potassium 3.1 L 3.2 L Chloride 103 101 Carbon Dioxide 30.1 31.2 Anion Gap 9.0 10.0 BUN 8.0 14.0 Creatinine 0.86 0.82 Est GFR ( Amer) >60 >60 Est GFR (Non-Af Amer) >60 >60 BUN/Creatinine Ratio 9.3 17.1 Glucose 86 90 Calcium 8.9 8.6 Magnesium 2.4 Total Bilirubin 0.9 AST 43 H ALT 87 H Alkaline Phosphatase 64 Total Protein 6.3 L Albumin 3.6 Globulin 2.7 Albumin/Globulin Ratio 1.3 Urine Color Yellow Urine Clarity Clear Urine pH 8.0 Ur Specific [place]burg 1.015 Urine Protein 100 A Urine Glucose (UA) 100 A Urine Ketones Trace A Urine Occult Blood Negative Urine Nitrite Negative Urine Bilirubin Small A Urine Urobilinogen >=8.0 Ur Leukocyte Esterase Trace A Urine RBC 0-2 Urine WBC 2-5 A Ur Squamous Epith Cells Few A Urine Crystals None seen Urine Bacteria Moderate A Urine Casts None seen Urine Mucus Moderate A Ur Culture Indicated? Yes[place] [place] Urine HCG, Qual Negative Urine Opiates Screen Positive A Ur Buprenorphine Scrn Negative Ur Oxycodone Screen Negative Urine Methadone Screen Negative Ur Barbiturates Screen Negative U Tricyclic Antidepress Negative Ur Phencyclidine Scrn Negative Ur Amphetamines Screen Negative U Methamphetamines Scrn Negative U Benzodiazepines Scrn Negative Urine Cocaine Screen Negative U Cannabinoids Screen Positive A 01/23/25 09:15 WBC 9.7 RBC 5.27 Hgb 14.9 Hct 45.0 MCV 85.4 MCH 28.3 MCHC 33.1 RDW 12.3 Plt Count 297 MPV 10.7 Neut % (Auto) 76.1 H Lymph % (Auto) 15.5 L Kleberg % (Auto) 6.6 Eos % (Auto) 0.6 L Baso % (Auto) 0.4 Neut # (Auto) 7.4 H Lymph # (Auto) 1.5 Kleberg # (Auto) 0.6 Eos # (Auto) 0.1 Baso # (Auto) 0.0 Abs Immat Gran (auto) 0.08 H Imm/Tot Granulo (auto) 0.8 H Sodium 137 Potassium 2.7 L* Chloride 96 L Carbon Dioxide 33.4 H Anion Gap 10.3 BUN 16.0 Creatinine 0.98 Est GFR ( Amer) >60 Est GFR (Non-Af Amer) >60 BUN/Creatinine Ratio 16.3 Glucose 114 H Calcium 9.7 Magnesium Total Bilirubin 1.4 H AST 68 H ALT 117 H Alkaline Phosphatase 74 Total Protein 7.7 Albumin 4.4 Globulin 3.3 Albumin/Globulin Ratio 1.3 Urine Color Urine Clarity Urine pH Ur Specific [place] Urine Protein Urine Glucose (UA) Urine Ketones Urine Occult Blood Urine Nitrite Urine Bilirubin Urine Urobilinogen Ur Leukocyte Esterase Urine RBC Urine WBC Ur Squamous Epith Cells Urine Crystals Urine Bacteria Urine Casts Urine Mucus Ur Culture Indicated? Urine HCG, Qual Urine Opiates Screen Ur Buprenorphine Scrn Ur Oxycodone Screen Urine Methadone Screen Ur Barbiturates Screen U Tricyclic Antidepress Ur Phencyclidine Scrn Ur Amphetamines Screen U Methamphetamines Scrn U Benzodiazepines Scrn Urine Cocaine Screen U Cannabinoids Screen Preliminary micro results at discharge 01/23/25 09:25 Urine Culture - Preliminary Urine,Clean Catch Pending - Specimen sent to [facility] Discharge Plan Discharge Disposition: Home, Self-Care Condition: Fair Discharge Medications: New promethazine 12.5 mg suppository 12.5 mg WY Q6H PRN (Reason: nausea and vomiting) Qty: 12 0RF potassium chloride [Klor-Con 10] 10 mEq tablet extended release 10 meq PO BID 7 Days Qty: 14 0RF Continued trazodone 50 mg tablet 50 mg PO DAILY PRN (Reason: insomnia) ondansetron 4 mg tablet,disintegrating 4 mg PO Q6H PRN (Reason: nausea and vomiting) Qty: 12 0RF Discontinued promethazine 25 mg tablet 25 mg PO Q6H PRN (Reason: nausea and vomiting) Qty: 12 0RF Activity: increase activity as tolerated Diet Detail: soft diet and advance as tolerated Print Language: Mauritian Forms: Portal Instructions Follow Up Appointments: January 30 @ 1pm with Modesta Chand NP [address] [place] [address] Will need recheck BMP
[2025-01-24] MEDS: POTASSIUM BICARBONATE/CIT 25 MEQ TABLET EFF PO (10:04)
--- NOTE | 2025-01-24 12:04 | CM.NOTE ---
Rounds made with Dr. Garber. Dr. Garber reviews plan of care. Plan for discharge today if tolerates soft diet. Coral verbalizes understanding.
[2025-01-24] MEDS: PANTOPRAZOLE SODIUM 40 MG VIAL IV (13:03)
--- NOTE | 2025-01-25 10:23 | CM.DCFOLLOWU ---
1st attempt 01/25/25, no answer
--- NOTE | 2025-01-28 13:36 | CM.DCFOLLOWU ---
2nd attempt 01/28/25, no answer
--- NOTE | 2025-01-29 13:28 | CM.DCFOLLOWU ---
3rd attempt 01/29/25, no answer
== END 2025-01-24 13:35 | disposition home or self-care (01) ==
LOC: ER 10:16 → MS 11:16
PROVIDERS: Admitting Provider Family Medicine; Emergency Provider Emergency Medicine; PCP Nurse Practitioner Family; Visit Provider Family Medicine
DX: E87.6 Hypokalemia (principal); R11.15 Cyclical vomiting syndrome unrelated to migraine; G90.A Postural orthostatic tachycardia syndrome [POTS]; Z90.49 Acquired absence of other specified parts of digestive tract; F17.200 Nicotine dependence, unspecified, uncomplicated
CPT/HCPCS: 36415; 80048; 80053; 80307; 81001; 83735; 84703; 85025; 87086; 96361; 96365; 96366; 96375; 96376; 99285; 99406; G0378; J1885; J2405; J3480

== ENCOUNTER 2025-05-01 20:32 | Emergency (ER) | payer OTHER, SELFPAY ==
--- OUTSIDE RECORDS SUMMARY | 2022-02-09 14:35 | XMS_ITS | Continuity of Care Document ---
Author Organization [facility] Address [address] [place] [address] Phone Care Team Providers Care Shared Services And Outsourcing Manager Name Role Phone Lacho [facility], Em Afshan Unavaila ble Allergies, Adverse Reactions, Alerts Substance Reaction Status Criticality No Known Allergies Active No Inform ation Medications Medication Instructions Dosage Effective Dates (start - stop) Status Comments gabapentin 300 mg capsule take 1 capsule by oral route 3 times every day 300 MG - Active Prevacid 30 mg capsule,delayed release take 1 capsule by oral route every day before a meal 30 MG - Active Lexapro 10 mg tablet take 1 tablet by oral route every day 10 MG - Active magnesium 200 mg tablet - Active Sprintec (28) 0.25 mg-35 mcg tablet take 1 tablet by oral route every day 1.00 tablet - Active lisinopril 10 mg tablet take 1 tablet by oral route every day 10 MG - Active Zofran 8 mg tablet take 1 tablet by oral route every 8 hours for 2 days - Active promethazine 25 mg tablet take 1 tablet by oral route every 4 - 6 hours as needed 25 MG - Active ProAir RespiClick 90 mcg/actuation breath activated inhale 2 puff by inhalation route every 4 - 6 hours as needed 180 MCG - Active Procedures Procedure Date Oral Hygiene Instruction Resin Composite 3s; Posterior 9 Prophylaxis Adult Topical Mel Of Flouride Varnish 019 Sealant Excluded Moderate Risk Oral Hygiene Instruction Bitewings Four Films Comp Oral Eval New/estab Patient 2018 Sealant Per Tooth Sealant Per Tooth Sealant Per Tooth Sealant Per Tooth Sealant Per Tooth Sealant Per Tooth Sealant Per Tooth High Risk Nutrit Couns For Control Of [place] Dis May Oral Hygiene Instruction OFFICE/OUTPATIENT VISIT, EST HEPB VACC PED/ADOL 3 DOSE IM HIB VACCINE, PRP-T, IM DTAP VACCINE, < 7 YRS, IM MMR VACCINE, [place] Advance Directives Directive Yes / No Effective Date File Name No Information Encounters Encounter Description Practice Location Reason(s) For Visit Diagnoses Date Provider Providers Copied on Encounter [facility], [address] [place] [address], [id number], tel:[phone] [facility] No Information Lacho [facility] Em. [address] [place] [address], [id number], [place]. tel:[phone] [facility], [address] [place] [address], [id number], [place] tel:[phone] Dental Clinic [facility] [address] [place] [address], [id number], [place]. tel:[phone] [facility], [address] [place] [address], [id number], [place] tel:[phone] Dental Clinic filling (chief complaint) Encounter for screening for dental disorders [facility] [address] [place] [address], [id number], [place]. tel:[phone] [facility], [address] [place] [address], [id number], tel:[phone] Dental Clinic Encounter for screening for dental disorders Shanti Holly. [address] [place], [place], [id number], [place]. tel:[phone] [facility], [address] [place], [place], [id number], [place] tel:[phone] Dental Clinic Dental New (chief complaint) Encounter for screening for dental disorders Shanti Holly. [address] [place], [place], [id number], [place]. tel:[phone] OFFICE/OUTPATI ENT VISIT, EST [facility], [address] [place], [place], [id number], [place] tel:[phone] [facility] No Information Albaro Barlow. [address] [place], [place], [id number], [place]. tel:[phone] Family History Family Member Type Diagnosis Age At Onset Mother Problem (finding) fibromyalgia Father Problem (finding) malignant neoplasm of k idney Mother Problem (finding) malignant neoplasm of c ervix uteri Problem (finding) Family history of scoliosis deformity of spine Father Problem (finding) stroke Father Problem (finding) depression Father Problem (finding) Alive and well Father Problem (finding) Diabetes mellitus Mother Problem (finding) seizure disorder Mother Problem (finding) Alive and well Payers Payer name Insurance type Covered democrat ID Diandra gamezelvia(s) D Medicaid [facility] [id number] Social History Type Description Quantity Date Captured Comments Alcohol Use Details Unknown Caffeine Use Details Unknown Tobacco Use Status No Information Smoking Status No Information Sex Female Sexual Orientation Straight or heterosexual Gender Identity Female Chief Complaint And Reason For Visit No Information Reason For Referral Reason For Referral No Information History Of Present Illness Encounter Date Complaint History Of Prese nt Illness filling filling Dental New Dental New Functional Status Date Functional Assessmen t No Information Instructions Date Instruction Additional Infor mation No Information Assessments Type Assessment Date No Information Patient Care Teams Name Effective Dates (start - stop) Status Members No Information
--- OUTSIDE RECORDS SUMMARY | 2025-01-30 09:00 | XMS_ITS ---
Author Organization [employer] Address [address] [place] [address] Care Team Providers Care Problem Manager Name Role Phone Modesta Chand Primary Care Provider Zonia Short Unavailable [phone] REASON FOR VISIT Pots disease, vomiting Social History Sex Assigned At : Social History Observation Description Sex Assigned At Female Encounters Encounter Location Date Provider Diagnosis [facility] [address] [place] [address] 01/30/2025 Modesta Chand Plan Of Treatment No Information Progress Notes * PILI SEGURA ADOB: [birth year] (20 yo F)Acc No.[id number]:01/30/2025 Progress Note Patient: PILI PENALOZA A Provider: Jesus Chand CNP :2005 A ge:20 Y S ex:Female Date:01/30/2025 Address:[address] [facility] Subjective: * Chief Complaints: * 1 . Pots disease, vomiting. * Medical History: Objective: * Vitals: Assessment: Plan: * Treatment: Care Plan: * Problems: * Images: * Electronic signature of Lorie Chand CNP on 05/01/2025 at 08:36 PM EDT Sign off status: Pending * Provider: Jesus Chand CNP Date: 0 01/30/2025 Generated for Yang huffman/Marcos/Lorraine on: 0 05/01/2025 08:36 PM EDT
--- OUTSIDE RECORDS SUMMARY | 2025-05-01 20:36 | XMS_ITS | Patient Health Record ---
Author Organization [facility] [employer] Address [address] [place] [address] Care Team Providers Care Finisher Accordion Name Role Phone Modesta Chand Primary Care Provider [phone] Zonia Short Unavailable [phone] Allergies Allergen (clinical drug ingredient) Drug/Non Drug Allergy documented on EMR Reaction Allergy Type Onset Date Status metoclopramide Reglan Facial Droop Drug Allergy Active Reason For Referral No Information Medications Medication SIG (Take, Route, Frequency, Duration) Notes Start Date End Date Status Ventolin HFA 108 (90 Base) MCG/ACT 2 puff as needed Inhalation every 4-6 hrs for 30 days Not-Taking Zofran 4 MG 1 tablet Orally twic e a day (bid) as needed (prn) for 10 days PRN Active Immunizations Vaccine Route Administration Date Status Comme nts Hep A peds/adol IM Intramuscular 12/04/2020 Administered Influenza 3+ PRIVATE IM Intramuscular 12/04/2020 Administe red Meningococcal (MENACTRA) IM Intramuscular 12/04/2020 Admin istered MENINGOCOCCAL B IM Intramuscular 12/04/2020 Administered Social History Tobacco Use: Social History Observation Description Date Details (start date - stop date) Never Smoker NA - NA Sex Assigned At : Social History Observation Description Sex Assigned At Female Tobacco Screen: Question Answer Notes Are you a: never smoker Sexual Hx: Question Answer Notes Had sex in the last 12 months (vaginal, oral, or anal)? Yes with Men only Use protection? Yes How often? Most of the time Prevention Strategies discussed: Condoms Have you ever had an STD? No Alcohol Screening: Question Answer Notes Did you have a drink containing alcohol in the p ast year? No Points 0 Interpretation Negative Problems Problem Type SNOMED Code ICD Code Onset Dates Problem Status W/U Status Risk Notes Problem Severe mixed bipolar I disorder without psychotic features (17625618) Bipolar disorder, current episode mixed, severe, without psychotic features (F31.63) Active confirmed Problem 134302450 Major depressive disorder, recurrent, moderate (F33.1) Active confirmed Problem migraine (disorder) (49136350) Migraines (G43.909) Active confirmed Problem 14691169 Vitamin D deficiency (E55.9) Active confirmed Problem 97630141 Pneumomediastinu m (J98.2) Active confirmed Problem 911673682 Sleep difficulti es (G47.9) Active confirmed Problem 90476223 PTSD (post-traumatic stress disorder) (F43.10) Active confirmed Problem 894233722 Menorrhagia with irregular cycle (N92.1) Active confirmed Problem 168837221505420 History of posttraumatic stress disorder (PTSD) (Z86.59) Active confirmed Problem 24196418 Irregular periods/menstrual cycles (N92.6) Active confirmed Problem 07380897 Social anxiety disorder (F40.10) Active confirmed Problem Major depression, single episode (36455107) Depression, acute (F32.9) Active confirmed Problem 524951105 POTS (postural orthostatic tachycardia syndrome) (I49.8) Active confirmed Vital Signs Heart Rate 84 /min 01/25/2025 Temperature 97.9 degrees Fahrenheit 01/25/2025 Respiratory Rate 18 /min 01/25/2025 Oximetry 100 % 01/25/2025 Blood pressure diastolic 90 mm Hg 01/25/2025 Height 62.5 in 01/25/2025 Blood pressure systolic 140 mm Hg 01/25/2025 Weight 205.6 lbs 01/25/2025 BMI 37 kg/m2 01/25/2025 Encounters Encounter Location Date Provider Diagnosis [facility] [address] [place] [address] 08/07/2024 Modesta Chand [facility] [address] [place] [address] 07/03/2024 Modesta Chand control counseling Z30.09 [facility] [address] [place] [address] 01/25/2025 Modesta Chand POTS (postural orthostatic tachycardia syndrome) I49.8 ; Nausea and vomiting, unspecified vomiting type R11.2 ; Migraines G43.909 ; Sleep difficulties G47.9 and Hyperkalemia E87.5 Assessments Encounter Date Diagnosis (ICD Code) Assessment Notes Treatment Notes Treatment Clinical Notes Section Notes 07/03/2024 control counseling (ICD-10 - Z30.09) Pt wants to get her nexplanon removed and will have her see resident to have this done. Pt will then return to see [facility] when ready to discuss further control vs minimum 1-2 months. Education on other sources of control that she could consider. Pt declines to have started immediately after and wants to think about. Also educated on using secondary form of control after removal bc of risk for . Pt VU. 01/25/2025 POTS (postural orthostatic tachycardia syndrome) (ICD-10 - I49.8) Hx of POTS pt also has been having n/v and now some diarrhea. Pt has been to ER mult times for her complaints but starting to feel somewhat better. Note given to cover all of her days missed from the 18 through to today. 01/25/2025 Nausea and vomiting, unspecified vomiting type (ICD-10 - R11.2) Pt was kept in hospital for fluids and potassium replacement. Discharged with medication for nausea and vomiting. Did have reported emesis end of visit when MA was in room x 1. Pt does have zofran at home and plans to take. Denies any further sensation to vomit at this time and did have labs ordered to recheck electrolytes, blood counts, etc. Pt agreeable. Instructed to increase intake of fluids such as Gatorade or Powerade to maintain electrolytes. Rest and advance diet as tolerated. Informed that the appetite should return and the patient should start slowly as tolerated. Follow BRAT diet when start to advance. Follow up if not improving in next few days or worsening of symptoms. 01/25/2025 Migraines (ICD-10 - G43.909) Pt reports headache and requests Toradol shot. Given to pt by GET. Alicia well. 01/25/2025 Sleep difficulties (ICD-10 - G47.9) Will start patient back on her Trazodone today. Discussed risks and side effects of medication including possible nausea, headache, upset stomach, diarrhea, constipation, anxiety, irritability, and sexual dysfunction. Most mild side effects improve over 4-6 weeks of use. Please monitor for worsening of symptoms, especially suicidal ideations or morbid thoughts, and call office and or go to the emergency department immediately if this occurs. Patient verbalized understanding, in agreement with plan. 01/25/2025 Hyperkalemia (ICD-10 - E87.5) Will get updated labs and pt should get done in several days since just discharged and return 1 week roseline if not improving return sooner. Education on s/s of low K+ and other electrolytes and hydration/ electrolyte replacement. Pt VU. Plan Of Treatment Pending Test Test Name Order Date Complete Blood Count Auto Diff 5 Insurance Providers Payer Name Payer Address Payer Phone Subscriber Number Group Number Insured Name Patient Relationship to Insured Coverage Start Date Coverage End Date [employer] [place] [address] [place] [address] [id number] PILI SEGURA Self - patient is the insured 3 [employer] [address] [place] [address] [id number] PILI SEGURA Self - patient is the insured 3 [employer] [address] [place] [address] [id number] PILI SEGURA Self - patient is the insured 0 3 zMEDICAID CFC after [employer] [address] [place] [address] [phone] [id number] PILI SEGURA Self - patient is the insured 0 3 zDENTAL DQ [employer] 22 [address] [facility] [place] [address] [id number] PILI SEGURA Self - patient is the insured 1 [facility] after [employer] [address] [place] [phone] [id number] PILI SEGURA Self - patient is the insured 1 3 zBH [employer] [address] [place] [address] [id number] PILI SEGURA Self - patient is the insured 3 3 z MEDICAID CFC after [employer] [address] [place] [address] [id number] PILI SEGURA Self - patient is the insured 3 3 BH [employer] [place] Medicaid [address] [place] [address] [id number] PILI SEGURA Self - patient is the insured 3 BH Wrap [facility] [employer] [address] [place] [address] [id number] PILI SEGURA Self - patient is the insured 3 Dental [employer] [place] [address] [place] [address] [id number] PILI SEGURA Self - patient is the insured 3 Dental W[employer] [address] [place] [phone] [id number] PILI SEGURA Self - patient is the insured 3 Medications Administered Medication Instructions Date of Administration Dosage Notes TORADOL 12/04/2020 1 mL TORADOL 02/18/2021 0.5 mL TORADOL 07/12/2022 2 mL TORADOL 01/25/2025 60 mg Medical (General) History Medical History History ICD Code Abdominal Pain Migraines POTS Dx 2015 Upper GI Bleed Requiring NG tube 2019 Asthma Ovarian Cyst Menorrhagia UTI Beverley [employer] Tears Environmental Allergies Vitamin D Deficiency Pneumonia Age 5 Menorrhagia Overdose in Pediatric Patient Suicidal Thoughts 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
--- OUTSIDE RECORDS SUMMARY | 2025-05-01 20:36 | XMS_ITS | Clinical Summary ---
Author Organization [facility] Address [address] [place] [address] Care Team Providers Care Tripoler Name Role Phone Unavailable Primary Care Provider Unavailabl e Social History Tobacco Use Types Packs/Day Years Used Date Smoking Tobacco: Never Assessed Comments Unknown Sex and Gender Information Value Date Recorded Sex Assigned at Not on file Legal Sex Female 7:10 PM EDT Gender Identity Not on file Sexual Orientation Not on file Last Filed Vital Signs Vital Sign Reading Time Taken Comments Blood Pressure 118/74 02/17/2022 12:00 PM EDT Pulse - - Temperature - - Respiratory Rate - - Oxygen Saturation - - Inhaled Oxygen Concentration - - Weight 73 kg (161 lb) 02/17/2022 12:00 PM EDT Height 157.5 cm (5' 2 ) 02/17/2022 12:00 PM EDT Body Mass Index 29.45 02/17/2022 12:00 PM EDT Plan of Treatment Not on file Insurance [facility]
[2025-05-01 20:40] VITALS: BP 121/90; PULSE 102; TEMP 36.4; O2SAT 96; BMI 36.6
--- NOTE | 2025-05-01 21:27 | ECG_ITS ---
[facility] Test Date: 2025-05-01 Pat Name: PILI SEGURA Department: Room: - Gender: Female Ict Sales Assistant: : 2005 Requested By: [id number] Order Number: [id number] Reading MD: WILLIAM LEUNG M.D. Measurements Intervals Webster Rate: 102 P: 63 WY: 150 QRS: 60 QRSD: 80 T: 71 QT: 338 QTc: 397 Interpretive Statements 1120 Sinus tachycardia 9140 abnormal rhythm ECG Compared to ECG 01/21/2025 18:07:07 Sinus arrhythmia no longer present Electronically Signed On 05-02-2025 20:18:43 EDT by WILLIAM LEUNG M.D.
--- NOTE | 2025-05-01 21:27 | PC.NURSE ---
PT HAS BEEN RETCHING FOR 2 DAYS AFTER MARIJUANA USE 3 DAYS AGO. PT STATES THIS HAS HAPPENED BEFORE.
--- NOTE | 2025-05-01 21:35 | ED_ITS ---
Documented by User: Damien Cordova NP 05/01/25 21:49 HPI HPI - General Adult General Chief complaint: Nausea/Vomiting/Diarrhea Stated complaint: NAUSEA, VOMITING Time Seen by Provider: 05/01/25 20:47 Source: patient Source information: Hx of cyclic vomiting syndrome. Pt states that she smokes a bowl of pot a day Mode of arrival: walk-in History of Present Illness HPI narrative: The patient is a 20-year-old female who presents to the emergency department today for evaluation concerns for nausea and vomiting. Patient states she began experiencing episodes of abdominal discomfort with nausea and vomiting earlier today. She states she has a history of cyclic vomiting. She does endorse she last used marijuana 3 days ago. She has any fever/chills, chest pain, shortness of breath, or diarrhea. On arrival to the emergency department she is requesting IV fluids, Benadryl, and pain medication for her symptoms. She otherwise denies any significant medical or surgical history. Related Data Home Medications ?Medication ?Instructions ?Recorded ?Confirmed No Known Home Medications 05/01/2503/22 Allergies Allergy/AdvReac Type Severity Reaction Status Date / Time metoclopramide (From Reglan) AdvReac Intermediate facial Verified 05/01/25 20:49 drooping haloperidol (From Haldol) AdvReac Mild icthy Verified 05/01/25 20:49 Opioid HPI Opioid Management Most Recent Opioid Data: Last Pain Scale 9 Today, 20:40 Last ORT Total Score 6 01/23/25, 11:33 Last ORT Risk Category Moderate Risk 01/23/25, 11:33 Ur Phencyclidine Scrn, (NEGATIVE) Negative , 09:25 Review of Systems ROS Status of ROS 10 or more systems reviewed and unremark able except as noted in history and below PFSH PFSH Medical History (Updated 05/01/25 @ 21:49 by Damien Cordova NP) Marijuana use ?F12.90 - Cannabis use, unspecified, uncomplicated (ICD-10) Asthma ?J45.909 - Unspecified asthma, uncomplicated (ICD-10) Leukocytosis ?D72.829 - Elevated white blood cell count, unspecified (ICD-10) Bipolar 1 disorder ?F31.9 - Bipolar disorder, unspecified (ICD-10) Migraine ?G43.909 - Migraine, unspecified, not intractable, without status migrainosus (ICD-10) POTS (postural orthostatic tachycardia syndrome) ?G90.A - Postural orthostatic tachycardia syndrome [POTS] (ICD-10) Cyclic vomiting syndrome ?R11.15 - Cyclical vomiting syndrome unrelated to migraine (ICD-10) Cyclic vomiting syndrome ?R11.15 - Cyclical vomiting syndrome unrelated to migraine (ICD-10) Fall ?W19.XXXA - Unspecified fall, initial encounter (ICD-10) Fracture of tibial plateau ?S82.143A - Displaced bicondylar fracture of unspecified tibia, initial encounter for closed fracture (ICD-10) Surgical History History of appendectomy ?Z90.49 - Acquired absence of other specified parts of digestive tract (ICD- 10) Family History Father Family history of stroke Family history of diabetes mellitus Family history of cancer Family history of hypertension Family history of CHF (congestive heart failure) Grandfather Family history of stroke Grandmother Family history of myocardial infarction Mother Family history of diabetes mellitus Family history of cancer Social History Within the past year, how often did you have a drink containing alcohol: never Score interpretation: A score less than 3 is consistent with normal alcohol consumption. Smoking status: Current every day smoker Non-prescribed substance use: cannabis (any form) Highest level of school completed/degree received: high school graduate Little interest or pleasure in doing things: not at all Feeling down, depressed, or hopeless: not at all Do you think of yourself as: straight/heterosexual Gender Identity: female Exam Narrative Exam Narrative: Constituational: Awake/ alert, having episodes of emesis and appears uncomfortable HENMT: normocephalic, external ears normal, moist oral mucous membranes and oropharynx normal Eyes: EOMI and conjunctivae normal Neck: ROM intact Chest: inspection of chest normal Respiratory: Normal respiratory effort, clear to auscultation bilaterally Cardio: regular rate and regular rhythm GI: soft to palpation and non-tender Back: nontender MSK: ROM intact, +NVI Skin: no rashes or petechiae Neuro: no focal deficits Psych: mental status grossly normal Constitutional Vital Signs, click to edit/add: Last Vital Signs Temp 97.6 F 05/01/25 20:40 Pulse 102 H 05/01/25 20:40 Resp 20 05/01/25 20:40 BP 121/90 05/01/25 20:40 Pulse Ox 96 05/01/25 20:40 O2 Del Method Room Air 05/01/25 20:40 Course Vital Signs Vital signs: Vital Signs Temperature 97.6 F 05/01/25 20:40 Pulse Rate 102 H 05/01/25 20:40 Respiratory Rate 20 05/01/25 20:40 Blood Pressure 121/90 05/01/25 20:40 Pulse Oximetry 96 05/01/25 20:40 Oxygen Delivery Method Room Air 05/01/25 20:40 Temperature 97.6 F 05/01/25 20:40 Pulse Rate 102 H 05/01/25 20:40 Respiratory Rate 20 05/01/25 20:40 Blood Pressure 121/90 05/01/25 20:40 Pulse Oximetry 96 05/01/25 20:40 Oxygen Delivery Method Room Air 05/01/25 20:40 Medical Decision Making MDM Narrative Medical decision making narrative: Patient is a nontoxic-appearing 20-year-old female with significant history of cyclic vomiting 2/2 marijuana use who presented to the emergency department today for evaluation concerns for nausea and vomiting after last marijuana use 3 days ago. Initial examination vital signs overall stable with exception patient is actively having episodes of emesis and did endorse some generalized abdominal discomfort otherwise no acute abdominal findings on exam. Patient did receive supportive measures of droperidol and IV fluids. Labs are pending. Care endorsed to Dr. Donovan (ER attending) 2200p to follow-up on pending labs and further determine disposition of patient. Medical Records Medical records reviewed: Yes I reviewed the patient's medical records Lab Data Lab results reviewed: Yes I reviewed the patient's lab results Labs: Lab Results 05/01/25 Range/Units 21:45 WBC 15.4 H (4.0-11.0) 10^3/uL RBC 5.13 (4.20-5.40) 10^6/uL Hgb 14.7 (12.0-16.0) g/dL Hct 43.8 (36.0-48.0) % MCV 85.4 (81.0-99.0) fL MCH 28.7 (26.7-34.0) pg MCHC 33.6 (29.9-35.2) g/dL RDW 12.5 (11.0-15.0) % Plt Count 287 (150-450) 10^3/uL MPV 9.7 (9.5-13.5) fL Seg Neuts % (Manual) 93.0 H (43.0-75.0) Lymphocytes % (Manual) 5.0 L (20.5-60.0) % Monocytes % (Manual) 1.0 L (1.7-12.0) % Eosinophils % (Manual) 0.0 L (0.9-7.0) % Basophils % (Manual) 1.0 (0.2-2.0) % Neutrophils # (Manual) 14.32 H (1.4-6.5) 10^3/uL Lymphocytes # (Manual) 0.77 L (1.20-3.80) 10^3/uL Monocytes # (Manual) 0.15 L (0.30-0.80) 10^3/uL Eosinophils # (Manual) 0.00 (0.00-0.70) 10^3/uL Basophils # (Manual) 0.15 H (0.00-0.10) 10^3/uL Sodium 141 (136-145) mmol/L Potassium 3.7 (3.5-5.1) mmol/L Chloride 103 (98-107) mmol/L Carbon Dioxide 19.6 L (21.0-32.0) mmol/L Anion Gap 22.1 BUN 18.0 (7.0-18.0) mg/dL Creatinine 0.72 (0.55-1.02) mg/dL Est GFR ( Amer) >60 (>=60 mL/min/1.73m^2) Est GFR (Non-Af Amer) >60 (>=60 mL/min/1.73m^2) BUN/Creatinine Ratio 25.0 Glucose 142 H (74-106) mg/dL Calcium 10.0 (8.5-10.1) mg/dL Total Bilirubin 0.8 (0.2-1.0) mg/dL AST 21 (15-37) U/L ALT 40 (14-59) U/L Alkaline Phosphatase 96 (46-116) U/L Total Protein 8.4 H (6.4-8.2) g/dL Albumin 4.3 (3.4-5.0) g/dL Globulin 4.1 g/dL Albumin/Globulin Ratio 1.0 Lipase 22.0 (16.0-77.0) U/L Serum HCG, Qual Negative (NEGATIVE) ECG Data Attestation: I personally reviewed and interpreted this ECG as follows: (Sinus tachycardia with HR 102, no acute/ischemic changes) Discharge Plan Discharge Stand Alone Forms: Portal Instructions Chief Complaint: Nausea/Vomiting/Diarrhea Clinical Impression: Cyclical vomiting, Marijuana abuse Patient Disposition: Left Against Medical Advice Time of Disposition Decision: 22:39 Condition: Good Prescriptions / Home Meds: No Action No Known Home Medications Print Language: Greenlandic Instructions: Acute Nausea and Vomiting (ED), Cannabis Use Disorder (ED) Referrals: Modesta Chand, RECRUITING AND SELECTION CONSULTANT [Primary Care Provider] - 1 week Documented by User: Monet Donovan MD 05/01/25 22:39 HPI HPI - General Adult General Chief complaint: Nausea/Vomiting/Diarrhea Stated complaint: NAUSEA, VOMITING Time Seen by Provider: 05/01/25 20:47 Related Data Home Medications ?Medication ?Instructions ?Recorded ?Confirmed No Known Home Medications 05/01/2503/22 Allergies Allergy/AdvReac Type Severity Reaction Status Date / Time metoclopramide (From Reglan) AdvReac Intermediate facial Verified 05/01/25 20:49 drooping haloperidol (From Haldol) AdvReac Mild icthy Verified 05/01/25 20:49 Opioid HPI Opioid Management Most Recent Opioid Data: Last Pain Scale 9 Today, 20:40 Last ORT Total Score 6 01/23/25, 11:33 Last ORT Risk Category Moderate Risk 01/23/25, 11:33 Ur Phencyclidine Scrn, (NEGATIVE) Negative , 09:25 PFSH PFSH Medical History (Updated 05/01/25 @ 21:49 by Damien Cordova NP) Marijuana use ?F12.90 - Cannabis use, unspecified, uncomplicated (ICD-10) Asthma ?J45.909 - Unspecified asthma, uncomplicated (ICD-10) Leukocytosis ?D72.829 - Elevated white blood cell count, unspecified (ICD-10) Bipolar 1 disorder ?F31.9 - Bipolar disorder, unspecified (ICD-10) Migraine ?G43.909 - Migraine, unspecified, not intractable, without status migrainosus (ICD-10) POTS (postural orthostatic tachycardia syndrome) ?G90.A - Postural orthostatic tachycardia syndrome [POTS] (ICD-10) Cyclic vomiting syndrome ?R11.15 - Cyclical vomiting syndrome unrelated to migraine (ICD-10) Cyclic vomiting syndrome ?R11.15 - Cyclical vomiting syndrome unrelated to migraine (ICD-10) Fall ?W19.XXXA - Unspecified fall, initial encounter (ICD-10) Fracture of tibial plateau ?S82.143A - Displaced bicondylar fracture of unspecified tibia, initial encounter for closed fracture (ICD-10) Surgical History History of appendectomy ?Z90.49 - Acquired absence of other specified parts of digestive tract (ICD- 10) Family History Father Family history of stroke Family history of diabetes mellitus Family history of cancer Family history of hypertension Family history of CHF (congestive heart failure) Grandfather Family history of stroke Grandmother Family history of myocardial infarction Mother Family history of diabetes mellitus Family history of cancer Social History Within the past year, how often did you have a drink containing alcohol: never Score interpretation: A score less than 3 is consistent with normal alcohol consumption. Smoking status: Current every day smoker Non-prescribed substance use: cannabis (any form) Highest level of school completed/degree received: high school graduate Little interest or pleasure in doing things: not at all Feeling down, depressed, or hopeless: not at all Do you think of yourself as: straight/heterosexual Gender Identity: female Exam Constitutional Vital Signs, click to edit/add: Last Vital Signs Temp 97.6 F 06/04/25 20:40 Pulse 102 H 05/01/25 20:40 Resp 20 05/01/25 20:40 BP 121/90 05/01/25 20:40 Pulse Ox 96 05/01/25 20:40 O2 Del Method Room Air 05/01/25 20:40 Course Vital Signs Vital signs: Vital Signs Temperature 97.6 F 05/01/25 20:40 Pulse Rate 102 H 05/01/25 20:40 Respiratory Rate 20 05/01/25 20:40 Blood Pressure 121/90 05/01/25 20:40 Pulse Oximetry 96 05/01/25 20:40 Oxygen Delivery Method Room Air 05/01/25 20:40 Temperature 97.6 F 05/01/25 20:40 Pulse Rate 102 H 05/01/25 20:40 Respiratory Rate 20 05/01/25 20:40 Blood Pressure 121/90 05/01/25 20:40 Pulse Oximetry 96 05/01/25 20:40 Oxygen Delivery Method Room Air 05/01/25 20:40 Medical Decision Making MDM Narrative Medical decision making narrative: Patient is a nontoxic-appearing 20-year-old female with significant history of cyclic vomiting 2/2 marijuana use who presented to the emergency department today for evaluation concerns for nausea and vomiting after last marijuana use 3 days ago. Initial examination vital signs overall stable with exception patient is actively having episodes of emesis and did endorse some generalized abdominal discomfort otherwise no acute abdominal findings on exam. Patient did receive supportive measures of droperidol and IV fluids. Labs are pending. Care endorsed to Dr. Donovan (ER attending) 2200p to follow-up on pending labs and further determine disposition of patient. At 10:30 PM the patient request to be released. She has not had any additional episodes of nausea or vomiting. She denies any abdominal pain at this time. She states that her ride is coming and she needs to go. She declines the need for any Zofran or other antiemetics to use as an outpatient. She states she has a doctors appointment soon and should be fine. She signed out AGAINST MEDICAL ADVICE verbalizing the understanding that her workup is not complete at this time. She was encouraged return to emergency department anytime for worsening symptoms or any concerns. Lab Data Labs: Lab Results 05/01/25 Range/Units 21:45 WBC 15.4 H (4.0-11.0) 10^3/uL RBC 5.13 (4.20-5.40) 10^6/uL Hgb 14.7 (12.0-16.0) g/dL Hct 43.8 (36.0-48.0) % MCV 85.4 (81.0-99.0) fL MCH 28.7 (26.7-34.0) pg MCHC 33.6 (29.9-35.2) g/dL RDW 12.5 (11.0-15.0) % Plt Count 287 (150-450) 10^3/uL MPV 9.7 (9.5-13.5) fL Seg Neuts % (Manual) 93.0 H (43.0-75.0) Lymphocytes % (Manual) 5.0 L (20.5-60.0) % Monocytes % (Manual) 1.0 L (1.7-12.0) % Eosinophils % (Manual) 0.0 L (0.9-7.0) % Basophils % (Manual) 1.0 (0.2-2.0) % Neutrophils # (Manual) 14.32 H (1.4-6.5) 10^3/uL Lymphocytes # (Manual) 0.77 L (1.20-3.80) 10^3/uL Monocytes # (Manual) 0.15 L (0.30-0.80) 10^3/uL Eosinophils # (Manual) 0.00 (0.00-0.70) 10^3/uL Basophils # (Manual) 0.15 H (0.00-0.10) 10^3/uL Sodium 141 (136-145) mmol/L Potassium 3.7 (3.5-5.1) mmol/L Chloride 103 (98-107) mmol/L Carbon Dioxide 19.6 L (21.0-32.0) mmol/L Anion Gap 22.1 BUN 18.0 (7.0-18.0) mg/dL Creatinine 0.72 (0.55-1.02) mg/dL Est GFR ( Amer) >60 (>=60 mL/min/1.73m^2) Est GFR (Non-Af Amer) >60 (>=60 mL/min/1.73m^2) BUN/Creatinine Ratio 25.0 Glucose 142 H (74-106) mg/dL Calcium 10.0 (8.5-10.1) mg/dL Total Bilirubin 0.8 (0.2-1.0) mg/dL AST 21 (15-37) U/L ALT 40 (14-59) U/L Alkaline Phosphatase 96 (46-116) U/L Total Protein 8.4 H (6.4-8.2) g/dL Albumin 4.3 (3.4-5.0) g/dL Globulin 4.1 g/dL Albumin/Globulin Ratio 1.0 Lipase 22.0 (16.0-77.0) U/L Serum HCG, Qual Negative (NEGATIVE) Discharge Plan Discharge Stand Alone Forms: Portal Instructions Chief Complaint: Nausea/Vomiting/Diarrhea Clinical Impression: Cyclical vomiting, Marijuana abuse Patient Disposition: Left Against Medical Advice Time of Disposition Decision: 22:39 Condition: Good Prescriptions / Home Meds: No Action No Known Home Medications Print Language: Greenlandic Instructions: Acute Nausea and Vomiting (ED), Cannabis Use Disorder (ED) Referrals: Modesta Chand, RECRUITING AND SELECTION CONSULTANT [Primary Care Provider] - 1 week
[2025-05-01 21:51] LABS: Hematocrit 43.8 % (36.0-48.0); Hemoglobin 14.7 g/dL (12.0-16.0); Mean Corpuscular HGB Conc 33.6 g/dL (29.9-35.2); Mean Corpuscular Hemoglobin 28.7 pg (26.7-34.0); Mean Corpuscular Volume 85.4 fL (81.0-99.0); Mean Platelet Volume 9.7 fL (9.5-13.5); Platelet Count 287 10^3/uL (150-450); Red Blood Count 5.13 10^6/uL (4.20-5.40); Red Cell Distribution Width 12.5 % (11.0-15.0); White Blood Count 15.4 10^3/uL (4.0-11.0)
[2025-05-01 22:03] LABS: HCG Qualitative NEGATIVE (NEGATIVE); Internal Control Within Normal Limits
[2025-05-01] MEDS: 0.9 % SODIUM CHLORIDE 1,000 ML 1000 ML IV (22:06)
[2025-05-01 22:11] LABS: Alanine Aminotransferase 40 U/L (14-59); Albumin Level 4.3 g/dL (3.4-5.0); Alkaline Phosphatase 96 U/L (46-116); Anion Gap 22.1; Aspartate Amino Transferase 21 U/L (15-37); Bilirubin Total 0.8 mg/dL (0.2-1.0); Carbon Dioxide 19.6 mmol/L (21.0-32.0); Chloride 103 mmol/L (98-107); Estimated GFR (African America >60 (>=60 mL/min/1.73m^2); Estimated GFR (Non-African Ame >60 (>=60 mL/min/1.73m^2); Globulin 4.1 g/dL; Glucose 142 mg/dL (74-106); Potassium 3.7 mmol/L (3.5-5.1); Sodium 141 mmol/L (136-145); Total Protein 8.4 g/dL (6.4-8.2)
[2025-05-01 22:12] LABS: Basophils Abs Manual 0.15 10^3/uL (0.00-0.10); Lymphocytes Absolute Manual 0.77 10^3/uL (1.20-3.80); Monocytes Absolute Manual 0.15 10^3/uL (0.30-0.80); Segmented Neut Absolute Manual 14.32 10^3/uL (1.4-6.5)
--- NOTE | 2025-05-01 23:29 | PC.NURSE ---
this patient is leaving AMA, the form signed by this patient and Dr Donovna, because her ride is here
== END 2025-05-01 22:45 | disposition left against medical advice (07) ==
PROVIDERS: Nurse Practitioner; Emergency Provider Emergency Medicine; PCP Nurse Practitioner Family
DX: R11.15 Cyclical vomiting syndrome unrelated to migraine (principal); Z53.29 Procedure and treatment not carried out because of patient's decision for other reasons; Z90.49 Acquired absence of other specified parts of digestive tract; F17.200 Nicotine dependence, unspecified, uncomplicated; F12.10 Cannabis abuse, uncomplicated
CPT/HCPCS: 36415; 80053; 80307; 81001; 83690; 84703; 85007; 85027; 93005; 96360; 99285

== ENCOUNTER 2025-05-03 09:04 | Observation (INO) | payer OTHER, SELFPAY ==
--- OUTSIDE RECORDS SUMMARY | 2022-02-09 14:35 | XMS_ITS | Continuity of Care Document ---
Author Organization [facility] Address [address] [place] [address] Phone Care Team Providers Care Assistant Operator Name Role Phone Lacho [facility], Em Afshan Unavaila ble Allergies, Adverse Reactions, [...] High Risk Nutrit Couns For Control Of [place] Dis May Oral Hygiene Instruction OFFICE/OUTPATIENT VISIT, EST HEPB VACC PED/ADOL 3 DOSE IM HIB VACCINE, PRP-T, IM DTAP VACCINE, < 7 YRS, IM MMR VACCINE, SC Advance Directives Directive Yes / No Effective Date File Name No Information Encounters Encounter Description Practice Location Reason(s) For Visit Diagnoses Date Provider Providers Copied on Encounter [facility], [address] [place] [address], [id number], tel:[phone] [facility] No Information Lacho [facility] Em. [address] [place] [address], [id number], [place]. tel:[phone] [facility], [address] [place] [address], [id number], [place] tel:[phone] Dental Clinic [facility] [address] [place] [address], [id number], [place]. tel:[phone] [facility], [address] [place] [address], [id number], [place] tel:[phone] Dental Clinic filling (chief complaint) Encounter for screening for dental disorders [facility]. [address] [place] [address], [id number], [place]. tel:[phone] [facility], [address] [place] [address], [id number], tel:[phone] Dental Clinic Encounter for screening for dental disorders Shanti Holly. [address] [place], [place], [id number], [place]. tel:[phone] [facility], [address] [place], [place], [id number], [place] tel:[phone] Dental Clinic Dental New (chief complaint) Encounter for screening for dental disorders Shanti Holly. [address] [place], [place], [id number], [place]. tel:[phone] OFFICE/OUTPATI ENT VISIT, EST [facility], [address] [place], [place], [id number], [place] tel:[phone] [facility] No Information Albaro Barlow. [address] [place], [place], [id number], [place]. tel:[phone] Family History Family Member Type Diagnosis Age [...] well Payers Payer name Insurance type Covered constitution party ID Diandra gamezelvia(s) D Medicaid [facility] [id number] Social History Type Description Quantity Date Captured [...]
--- OUTSIDE RECORDS SUMMARY | 2025-01-30 09:00 | XMS_ITS ---
Author Organization [employer] Address [address] [place] [address] Care Team Providers Care Director Home Name Role Phone Modesta Chand Primary Care Provider Zonia Short Unavailable [phone] REASON FOR VISIT Pots disease, vomiting Social History Sex Assigned At : Social History Observation Description Sex Assigned At Female Encounters Encounter Location Date Provider Diagnosis [facility] [address] [place] [address] 01/30/2025 Modesta Chand Plan Of Treatment No Information Progress Notes * PILI SEGURA ADOB: [birth year] (20 yo F)Acc No.[id number]:01/30/2025 Progress Note Patient: PILI PENALOZA A Provider: Jesus Chand CNP :2005 A ge:20 Y S ex:Female Date:01/30/2025 Address:[address] [facility] Subjective: * Chief Complaints: * 1 . Pots disease, vomiting. * Medical History: Objective: * Vitals: Assessment: Plan: * Treatment: Care Plan: * Problems: * Images: * Electronic signature of Lorie Chand CNP on 05/03/2025 at 09:06 AM EDT Sign off status: Pending * Provider: Jesus Chand CNP Date: 0 01/30/2025 Generated for Yang huffman/Marcos/Lorraine on: 0 05/03/2025 09:06 AM EDT
[2025-05-03 08:58] VITALS: BP 143/76; PULSE 87; TEMP 36.9; O2SAT 98; BMI 29.5
--- OUTSIDE RECORDS SUMMARY | 2025-05-03 09:07 | XMS_ITS | Patient Health Record ---
Author Organization [employer] [facility] [email or web address] es Address [address] [place] [address] Care Team Providers Care Director Dietetics Department Name Role Phone Modesta Chand Primary Care Provider [phone] Zonia Short Unavailable Allergies Allergen (clinical drug ingredient) Drug/Non Drug [...] mixed bipolar I disorder without psychotic features (13881947) Bipolar disorder, current episode mixed, severe, without psychotic features (F31.63) Active confirmed Problem 227619740 Major depressive disorder, recurrent, moderate (F33.1) Active confirmed Problem migraine (disorder) (12152459) Migraines (G43.909) Active confirmed Problem 46062054 Vitamin D deficiency (E55.9) Active confirmed Problem 20099652 Pneumomediastinu m (J98.2) Active confirmed Problem 323778715 Sleep difficulti es (G47.9) Active confirmed Problem 98103190 PTSD (post-traumatic stress disorder) (F43.10) Active confirmed Problem 724606520 Menorrhagia with irregular cycle (N92.1) Active confirmed Problem 334226827785133 History of posttraumatic stress disorder (PTSD) (Z86.59) Active confirmed Problem 93928802 Irregular periods/menstrual cycles (N92.6) Active confirmed Problem 64660542 Social anxiety disorder (F40.10) Active confirmed Problem Major depression, single episode (22385913) Depression, acute (F32.9) Active confirmed Problem 290585497 POTS (postural orthostatic tachycardia syndrome) (I49.8) Active confirmed Vital Signs Heart Rate 84 /min 01/25/2025 Temperature 97.9 degrees Fahrenheit 01/25/2025 Respiratory Rate 18 /min 01/25/2025 Oximetry 100 % 01/25/2025 Blood pressure diastolic 90 mm Hg 01/25/2025 Height 62.5 in 01/25/2025 Blood pressure systolic 140 mm Hg 01/25/2025 Weight 205.6 lbs 01/25/2025 BMI 37 kg/m2 01/25/2025 Encounters Encounter Location Date Provider Diagnosis [facility] [address] [place] [address] 08/07/[address] [facility] [address] [place] [address] 07/03/2024 Modesta Chand control counseling Z30.09 [facility] [address] [place] [address] 01/25/2025 Modesta Chand POTS (postural orthostatic tachycardia [...] done. Pt will then return to see CLARIFYING PLANT OPERATOR when ready to discuss further control vs [...] [employer] [place] [address] [place] [address] [id number] PILI SEGURA Self - patient is the insured 3 [employer] [address] [place] [address] [id number] PILI SEGURA Self - patient is the insured 3 [employer] [facility] [address] [place] [address] [id number] PILI SEGURA Self - patient is the insured 0 3 zMEDICAID CFC after [employer] [facility] [address] [place] [address] [phone] [id number] PILI SEGURA Self - patient is the insured 0 3 zDENTAL DQ [employer] [facility] 22 [address] [place] [address] [id number] PILI SEGURA Self - patient is the insured 1 [facility] after [employer] [facility] [address] [place] [phone] [id number] PILI SEGURA Self - patient is the insured 1 3 zBH [employer] [facility] [address] [place] [address] [id number] PILI SEGURA Self - patient is the insured 3 3 z MEDICAID CFC after [employer] [facility] [address] [place] [address] [id number] PILI SEGURA Self - patient is the insured 3 3 BH [employer] [place] Medicaid [address] [place] [address] [id number] PILI SEGURA Self - patient is the insured 3 BH [employer] [facility] [employer] [address] [place] [address] [phone] [id number] PILI SEGURA Self - patient is the insured 3 Dental [employer] [place] [address] [place] [address] [id number] PILI SEGURA Self - patient is the insured 3 Dental W[employer] [address] [place] [phone] [id number] PILI SEGURA Self - patient is the [...]
--- NOTE | 2025-05-03 10:23 | ED.GENADUL1 ---
HPI HPI - General Adult General Chief complaint: Nausea/Vomiting/Diarrhea Stated complaint: VOMITING Time Seen by Provider: 05/03/25 09:21 Source: patient Mode of arrival: ambulance Limitations: no limitations History of Present Illness HPI narrative: Patient is a 20-year-old female who is presenting to the ER today with chief complaint of 2 to 3 days of cyclic nausea and vomiting with abdominal cramping this is what patient tells me she has. Patient has history of marijuana abuse, POTS disease, cyclic nausea vomiting. Patient was admitted to the hospital earlier this year with hypokalemia. Patient states that she last smoked marijuana approximately 7 days ago. Patient lives at home with her parents. Patient has no medication at home for nausea or vomiting. Patient has minimal diffuse headache, minimal bilateral neck pain. Patient has seen a GI doctor in the past, she no longer does because she does not have a ride and finances to see a GI doctor. Patient says that she has had a EGD and colonoscopy before, and they noted some small tears in her stomach or esophagus from vomiting. Patient does not take any medication daily. No control. Patient says that she is on her menses right now, not concerned about . Patient takes no acid reflux medication daily. Patient denies any other type of illicit drug use. Patient works at [employer]. Patient states Tuesday night she felt fine when she went to bed, when she woke up Tuesday morning, she has been having intractable nausea, vomiting. Patient's been trying to deal with that for the past 3 days at home but ultimately was not able this morning and called EMS. IV was not established by EMS, no medication was given for her nausea, vomiting, abdominal cramping for the past few days. Patient no recent traveling. No new antibiotic use. Not concerned about food poisoning. No sick contacts. Patient says that she does not have her appendix. All systems are negative except as noted/marked. All systems reviewed and otherwise negative. Nurses note and vital signs reviewed and patient is not hypoxic. Maureen Hirsch RN, ER hemodialysis charge nurse nurse was at bedside during the entire HPI and physical exam as a witness. General: The patient appears mild distress secondary to nausea, vomiting, abdominal cramping. Patient is rubbing her abdomen the entire time I perform HPI and physical exam of the patient.. Patient is resting comfortably on cart. Patient is not toxic, lethargic, or listless Skin: Warm, dry, no pallor noted. There is no rash noted. No petechiae, purpura. Head: Normocephalic, atraumatic Eye: Normal conjunctiva, no drainage, EOMI. PERRL Ears, Nose, Mouth, and Throat: oral mucosa is moist. Nares patent. Mouth without vesicles. Cardiovascular: Regular Rate and Rhythm, no murmur, gallop, rub Respiratory: Patient is in no distress, no accessory muscle use, lungs are clear to auscultation, no wheezing, rales or rhonchi Back: non-tender, no CVA tenderness bilaterally to percussion. No CT LS midline pain GI: Soft, mild midepigastric tenderness to palpation, no peritoneal signs, no flank pain bilateral, nonsurgical abdomen, no tenderness to palpation, no masses appreciated. No rebound, guarding, or rigidity noted. No distention. No pain to McBurney's point, negative Andre sign. No flank pain bilateral. Musculoskeletal: Patient has full range of motion of all of the extremities, no motor, sensory, or focal neurological deficits Neurological: A&O x4, normal speech Psychiatric: Cooperative Related Data Home Medications ?Medication ?Instructions ?Recorded ?Confirmed No Known Home Medications 05/01/25 05/03/25 Allergies Allergy/AdvReac Type Severity Reaction Status Date / Time metoclopramide (From Reglan) AdvReac Intermediate facial Verified 05/01/25 20:49 drooping haloperidol (From Haldol) AdvReac Mild icthy Verified 05/01/25 20:49 Opioid HPI Opioid Management Most Recent Opioid Data: Last Pain Scale 9 Today, 10:43 Last Pain Assessment Today, 14:33 Last MAR Pain Assessment Today, 10:43 Last ORT Total Score 5 Today, 14:33 Last ORT Risk Category Moderate Risk Today, 14:33 Ur Phencyclidine Scrn, (NEGATIVE) Negative 01/23/25, 09:25 [facility] Medical History (Updated 05/03/25 @ 17:56 by Jasmeet Dumont MD) Marijuana use ?F12.90 - Cannabis use, unspecified, uncomplicated (ICD-10) Asthma ?J45.909 - Unspecified asthma, uncomplicated (ICD-10) Leukocytosis ?D72.829 - Elevated white blood cell count, unspecified (ICD-10) Bipolar 1 disorder ?F31.9 - Bipolar disorder, unspecified (ICD-10) Migraine ?G43.909 - Migraine, unspecified, not intractable, without status migrainosus (ICD-10) POTS (postural orthostatic tachycardia syndrome) ?G90.A - Postural orthostatic tachycardia syndrome [POTS] (ICD-10) Cyclic vomiting syndrome ?R11.15 - Cyclical vomiting syndrome unrelated to migraine (ICD-10) Cyclic vomiting syndrome ?R11.15 - Cyclical vomiting syndrome unrelated to migraine (ICD-10) Fall ?W19.XXXA - Unspecified fall, initial encounter (ICD-10) Fracture of tibial plateau ?S82.143A - Displaced bicondylar fracture of unspecified tibia, initial encounter for closed fracture (ICD-10) Surgical History History of appendectomy ?Z90.49 - Acquired absence of other specified parts of digestive tract (ICD-10) Family History Father Family history of stroke Family history of diabetes mellitus Family history of cancer Family history of hypertension Family history of CHF (congestive heart failure) Grandfather Family history of stroke Grandmother Family history of myocardial infarction Mother Family history of diabetes mellitus Family history of cancer Social History (Updated 05/03/25 @ 14:23 by Emili Benitez) Within the past year, how often did you have a drink containing alcohol: never Score interpretation: A score less than 3 is consistent with normal alcohol consumption. Smoking status: Current every day smoker Non-prescribed substance use: cannabis (any form) Previous occupational history: [employer] Highest level of school completed/degree received: high school graduate Little interest or pleasure in doing things: not at all Feeling down, depressed, or hopeless: not at all Feel stressed/tense/nervous/anxious/difficulty sleeping: not at all Do you think of yourself as: straight/heterosexual Gender Identity: female Exam Constitutional Vital Signs, click to edit/add: Last Vital Signs Temp 98.7 F 05/03/25 14:33 Pulse 57 L 05/03/25 14:33 Resp 16 05/03/25 14:33 BP 129/70 05/03/25 14:33 Pulse Ox 96 05/03/25 19:26 O2 Del Method Room Air 05/03/25 19:29 Course Vital Signs Vital signs: Vital Signs Temperature 98.5 F 05/03/25 08:58 Pulse Rate 87 05/03/25 08:58 Respiratory Rate 18 05/03/25 08:58 Blood Pressure 143/76 H 05/03/25 08:58 Pulse Oximetry 98 05/03/25 08:58 Oxygen Delivery Method Room Air 05/03/25 08:58 Temperature 98.7 F 05/03/25 14:33 Pulse Rate 57 L 05/03/25 14:33 Respiratory Rate 16 05/03/25 14:33 Blood Pressure 129/70 05/03/25 14:33 Pulse Oximetry 96 05/03/25 19:26 Oxygen Delivery Method Room Air 05/03/25 19:29 Medical Decision Making MDM Narrative Medical decision making narrative: Patient seen and examined: There was delay in seeing patient initially secondary to 2 other higher acuity patients that I was taking care of. Blameless apologies were given to patient. Patient hit the call light multiple times, 4-5 and also came down the graham asking when she can get medication to help with her nausea and vomiting. She has been explained by Sharda DE LA TORRE, Maureen Hirsch, WIL, and staff that we will get her as soon as possible, we are taking care of other higher acuity patients at this time. Patient is aware that we will give her IV Zofran, Compazine, Pepcid, Toradol, Bentyl and giving her multiple medications to help improve her symptoms. Differential diagnosis includes but is not limited to: Gastritis, nausea vomiting, cyclic nausea vomiting, marijuana abuse, pancreatitis, cholelithiasis Diagnostics and management: Patient will have laboratory studies Relevant laboratory interpretation: Patient has JAN, with a BUN of 51, creatinine 1.27. Potassium was 3.3. Chloride 97. CO2 21. Venous blood gas was 7.57 and CO2 22. Patient had white blood cells of 14.8, patient did have left shift as well with no bandemia. Reevaluation: Patient was feeling better after IV Zofran and Compazine and IV fluids. Patient was made aware of drinking her potassium bicarbonate Shared decision making: I discussed with the patient the necessary laboratory findings and radiological findings. Social barriers to healthcare: There are no food insecurities, there is no issue with transportation, there are no insurance barriers. Disposition: I discussed with the patient multiple medications that we are giving initially to help with all of her symptoms. 1110 patient potassium is 3.3, patient has JAN, elevated BUN and creatinine. Patient will be given a second liter of IV fluid. 1300 I did conversation with the patient with Maureen Hirsch RN and ER charge nurse of the witness again. Patient initially was speaking to Sharda DE LA TORRE stating that she wanted to potentially AGAINST MEDICAL ADVICE, was not willing to drink the rest of her potassium liquid. Patient was asking for the potassium to be placed through the IV. I explained to the patient the risk and benefits of giving IV potassium versus drinking oral liquid potassium, especially in light of her potassium only being 3.3. I told patient will not be replacing it through the IV at this time, she is already drank 75% of the oral potassium bicarbonate. Patient has been tolerating ice chips. Patient still has mild nausea, she will be given IV Zofran. Patient is aware of her JAN, we discussed her BUN and creatinine numbers. Patient is not willing to stay overnight. She was already here 2 days ago and left AGAINST MEDICAL ADVICE, she was going to leave AGAINST MEDICAL ADVICE again today, but patient is not willing to be admitted for observation to Dr. DUMONT. Patient had no other questions for myself or Maureen Hirsch RN Patient had 2 L of IV fluid. There is been a significant amount of time at bedside by nursing staff and myself with the corporate recycling manager Germaine Hirsch speaking to this patient. Patient has been time intensive. Patient has flat affect, not suicidal homicidal. Critical care time 37 minutes exclusive from separate billable procedures that were performed. The following was considered in the determination of critical care but not limited to the level of medical decision making, intensive cardiac and/or respiratory monitoring, frequent vital sign monitoring, evaluation of laboratory studies, evaluation of radiographic studies, oxygen monitoring, and constant monitoring and speaking to family at bedside Lab Data Lab results reviewed: Yes I reviewed the patient's lab results Labs: Lab Results 05/03/25 05/03/25 05/03/25 Range/Units 09:05 10:48 14:08 WBC 14.8 H (4.0-11.0) 10^3/uL RBC 5.19 (4.20-5.40) 10^6/uL Hgb 15.2 (12.0-16.0) g/dL Hct 43.0 (36.0-48.0) % MCV 82.9 (81.0-99.0) fL MCH 29.3 (26.7-34.0) pg MCHC 35.3 H (29.9-35.2) g/dL RDW 12.7 (11.0-15.0) % Plt Count 328 (150-450) 10^3/uL MPV 11.0 (9.5-13.5) fL Neut % (Auto) 77.7 H (43.0-75.0) % Lymph % (Auto) 12.2 L (20.5-60.0) % Calhoun % (Auto) 9.5 (1.7-12.0) % Eos % (Auto) 0.1 L (0.9-7.0) % Baso % (Auto) 0.1 L (0.2-2.0) % Neut # (Auto) 11.5 H (1.4-6.5) 10^3/uL Lymph # (Auto) 1.8 (1.2-3.8) 10^3/uL [place]oun # (Auto) 1.4 H (0.3-0.8) 10^3/uL Eos # (Auto) 0.0 (0.0-0.7) 10^3/uL Baso # (Auto) 0.0 (0.0-0.1) 10^3/uL Abs Immat Gran (auto) 0.06 H (0.00-0.03) 10^3/uL Imm/Tot Granulo (auto) 0.4 (0.0-0.5) % VBG pH 7.571 H (7.330-7.430) VBG pCO2 22.2 L (40.0-52.0) mmHg Sodium 138 (136-145) mmol/L Potassium 3.3 L (3.5-5.1) mmol/L Chloride 97 L (98-107) mmol/L Carbon Dioxide 21.3 (21.0-32.0) mmol/L Anion Gap 23.0 BUN 51.0 H (7.0-18.0) mg/dL Creatinine 1.27 H (0.55-1.02) mg/dL Est GFR ( Amer) >60 (>=60 mL/min/1.73m^2) Est GFR (Non-Af Amer) 53 L (>=60 mL/min/1.73m^2) BUN/Creatinine Ratio 40.2 Glucose 147 H (74-106) mg/dL Lactate 2.1 H* 1.5 (0.4-2.0) mmol/L Calcium 10.5 H (8.5-10.1) mg/dL Magnesium 2.2 (1.8-2.4) mg/dL Total Bilirubin 0.8 (0.2-1.0) mg/dL AST 24 (15-37) U/L ALT 40 (14-59) U/L Alkaline Phosphatase 88 (46-116) U/L Total Creatine Kinase 81 (26-192) U/L Total Protein 9.1 H (6.4-8.2) g/dL Albumin 4.8 (3.4-5.0) g/dL Globulin 4.3 g/dL Albumin/Globulin Ratio 1.1 Lipase 26.0 (16.0-77.0) U/L Discharge Plan Discharge Chief Complaint: Nausea/Vomiting/Diarrhea Clinical Impression: Drug abuse, marijuana, Cyclical vomiting syndrome, Gastritis, Abdominal cramping, JAN (acute kidney injury), Dehydration Patient Disposition: Admitted as Observation Time of Disposition Decision: 13:33 Condition: Fair Discharge Date/Time: 05/03/25 14:12
[2025-05-03 10:31] LABS: Basophils Percent Auto 0.1 % (0.2-2.0); Eosinophils Percent Auto 0.1 % (0.9-7.0); Hemoglobin 15.2 g/dL (12.0-16.0); Immature Granulocytes Abs Auto 0.06 10^3/uL (0.00-0.03); Immature Granulocytes Pct Auto 0.4 % (0.0-0.5); Lymphocytes Absolute Auto 1.8 10^3/uL (1.2-3.8); Lymphocytes Percent Auto 12.2 % (20.5-60.0); Mean Corpuscular HGB Conc 35.3 g/dL (29.9-35.2); Mean Corpuscular Hemoglobin 29.3 pg (26.7-34.0); Mean Corpuscular Volume 82.9 fL (81.0-99.0); Monocytes Absolute Auto 1.4 10^3/uL (0.3-0.8); Monocytes Percent Auto 9.5 % (1.7-12.0); Neutrophils Absolute Auto 11.5 10^3/uL (1.4-6.5); Neutrophils Percent Auto 77.7 % (43.0-75.0); Platelet Count 328 10^3/uL (150-450); Red Blood Count 5.19 10^6/uL (4.20-5.40); Red Cell Distribution Width 12.7 % (11.0-15.0); White Blood Count 14.8 10^3/uL (4.0-11.0)
[2025-05-03] MEDS: KETOROLAC TROMETHAMINE 30 MG/ML VIAL 15 MG IVP (10:43)
[2025-05-03] MEDS: 0.9 % SODIUM CHLORIDE 1,000 ML 999 ML IV (10:43)
[2025-05-03] MEDS: DICYCLOMINE HCL 20 MG/2 ML VIAL IM (10:43)
[2025-05-03] MEDS: PROCHLORPERAZINE 10 MG/2 ML VIAL IV (10:44)
[2025-05-03 10:48] LABS: Alanine Aminotransferase 40 U/L (14-59); Albumin Globulin Ratio 1.1; Albumin Level 4.8 g/dL (3.4-5.0); Alkaline Phosphatase 88 U/L (46-116); Aspartate Amino Transferase 24 U/L (15-37); BUN Creatinine Ratio 40.2; Bilirubin Total 0.8 mg/dL (0.2-1.0); Calcium 10.5 mg/dL (8.5-10.1); Carbon Dioxide 21.3 mmol/L (21.0-32.0); Chloride 97 mmol/L (98-107); Estimated GFR (African America >60 (>=60 mL/min/1.73m^2); Estimated GFR (Non-African Ame 53 (>=60 mL/min/1.73m^2); Globulin 4.3 g/dL; Glucose 147 mg/dL (74-106); Potassium 3.3 mmol/L (3.5-5.1); Sodium 138 mmol/L (136-145); Total Protein 9.1 g/dL (6.4-8.2)
[2025-05-03] MEDS: ONDANSETRON PF 4 MG/2 ML VIAL IV ×2 (10:48→13:52)
[2025-05-03 10:55] LABS: Creatine Kinase 81 U/L (26-192)
[2025-05-03 11:03] LABS: PCO2 VBG 22.2 mmHg (40.0-52.0); pH VBG 7.571 (7.330-7.430)
[2025-05-03 11:23] LABS: Lactate/Lactic Acid 2.1 mmol/L (0.4-2.0)
--- NOTE | 2025-05-03 11:23 | PC.NURSE ---
lactic of 2.[address] Molina at this time.
[2025-05-03] MEDS: 0.9 % SODIUM CHLORIDE 1,000 ML 1000 ML IV (11:45)
[2025-05-03] MEDS: POTASSIUM BICARBONATE/CIT 25 MEQ TABLET EFF 50 MEQ PO (12:33)
[2025-05-03] MEDS: FAMOTIDINE/PF 20 MG/2 ML VIAL IV (12:34)
[2025-05-03] MEDS: 0.9 % SODIUM CHLORIDE 1,000 ML 125 ML IV ×2 (13:51→23:13)
[2025-05-03 14:00] VITALS: BP 98/64; PULSE 65; TEMP 36.4; O2SAT 95
[2025-05-03 14:05] VITALS: BP 104/64; PULSE 89; O2SAT 98
[2025-05-03 14:33] VITALS: BP 129/70; PULSE 57; TEMP 37.1; O2SAT 99; BMI 36.7
[2025-05-03 14:51] LABS: Lactate/Lactic Acid 1.5 mmol/L (0.4-2.0)
--- NOTE | 2025-05-03 17:53 | P.HP_ITS ---
HPI H&P: HPI History of Present Illness Chief complaint: VOMITING CYCLIC VOMITING JAN HYPOKALEMIA Narrative: Patient presented to the emergency room with increasing nausea and vomiting, she was in the ER just a few days prior, was encouraged to stay, left AMA at that point, upon presentation today she does have significantly elevated BUN and creatinine, hypokalemia, elevated pH given medications in the ER with some improvement I saw patient up in the medical surgical floor, very somnolent but did awaken and answer questions appropriately, encouraged her refrain from all use of marijuana Opioid HPI Opioid Management Most Recent Pain and Opioid Data: Last Pain Scale 9 Today, 10:43 Last Pain Assessment Today, 14:33 Last MAR Pain Assessment Today, 10:43 Last ORT Total Score 5 Today, 14:33 Last ORT Risk Category Moderate Risk Today, 14:33 Ur Phencyclidine Scrn, (NEGATIVE) Negative , 09:25 Review of Systems ROS Status of ROS 10 or more systems reviewed and unremark able except as noted in history and below PFSH PFS Medical History (Updated 05/03/25 @ 17:56 by Jasmeet Dahl MD) Marijuana use ?F12.90 - Cannabis use, unspecified, uncomplicated (ICD-10) Asthma ?J45.909 - Unspecified asthma, uncomplicated (ICD-10) Leukocytosis ?D72.829 - Elevated white blood cell count, unspecified (ICD-10) Bipolar 1 disorder ?F31.9 - Bipolar disorder, unspecified (ICD-10) Migraine ?G43.909 - Migraine, unspecified, not intractable, without status migrainosus (ICD-10) POTS (postural orthostatic tachycardia syndrome) ?G90.A - Postural orthostatic tachycardia syndrome [POTS] (ICD-10) Cyclic vomiting syndrome ?R11.15 - Cyclical vomiting syndrome unrelated to migraine (ICD-10) Cyclic vomiting syndrome ?R11.15 - Cyclical vomiting syndrome unrelated to migraine (ICD-10) Fall ?W19.XXXA - Unspecified fall, initial encounter (ICD-10) Fracture of tibial plateau ?S82.143A - Displaced bicondylar fracture of unspecified tibia, initial encounter for closed fracture (ICD-10) Surgical History History of appendectomy ?Z90.49 - Acquired absence of other specified parts of digestive tract (ICD- 10) Family History Father Family history of stroke Family history of diabetes mellitus Family history of cancer Family history of hypertension Family history of CHF (congestive heart failure) Grandfather Family history of stroke Grandmother Family history of myocardial infarction Mother Family history of diabetes mellitus Family history of cancer Social History (Updated 05/03/25 @ 14:23 by Emili Benitez) Within the past year, how often did you have a drink containing alcohol: never Score interpretation: A score less than 3 is consistent with normal alcohol consumption. Smoking status: Current every day smoker Non-prescribed substance use: cannabis (any form) Previous occupational history: [employer] Highest level of school completed/degree received: high school graduate Little interest or pleasure in doing things: not at all Feeling down, depressed, or hopeless: not at all Feel stressed/tense/nervous/anxious/difficulty sleeping: not at all Do you think of yourself as: straight/heterosexual Gender Identity: female Meds Home Medications and Allergies Home Medications ?Medication ?Instructions ?Recorded ?Confirmed ?Type No Known Home Medications 05/01/2505/22 History Allergies Allergy/AdvReac Type Severity Reaction Status Date / Time metoclopramide (From Reglan) AdvReac Intermediate facial Verified 05/01/25 20:49 drooping haloperidol (From Haldol) AdvReac Mild icthy Verified 05/01/25 20:49 Exam Constitutional Vital Signs, click to edit/add: Last Vital Signs Temp 98.7 F 05/03/25 14:33 Pulse 57 L 05/03/25 14:33 Resp 16 05/03/25 14:33 BP 129/70 05/03/25 14:33 Pulse Ox 99 05/03/25 14:33 O2 Del Method Room Air 05/03/25 14:33 Documenting provider has reviewed patient's vital signs: yes Common normals: apparent distress (Somewhat somnolent but awakens its answer qu estions appropriately) Chest Common normals: inspection of chest normal and palpation of chest normal Respiratory Common normals: normal respiratory effort and no retractions Cardio Common normals: regular rate, regular rhythm, S1 normal heart sound and S2 normal heart sound GI Common normals: Normal to inspection, nondistended, normoactive bowel sounds present and soft to palpation; tender Palpation: tender Details: epigastric Extremity Common normals: normal to inspection and full ROM Results Labs Labs: Short CBC 05/03/25 Range/Units 09:05 WBC 14.8 H (4.0-11.0) 10^3/uL Hgb 15.2 (12.0-16.0) g/dL Hct 43.0 (36.0-48.0) % Plt Count 328 (150-450) 10^3/uL BMP 05/03/25 09:05 Sodium 138 Potassium 3.3 L Chloride 97 L Carbon Dioxide 21.3 BUN 51.0 H Creatinine 1.27 H Glucose 147 H Calcium 10.5 H Cardiac Enzymes 05/03/25 Range/Units 09:05 Total Creatine Kinase 81 (26-192) U/L Liver Function 05/03/25 Range/Units 09:05 Total Bilirubin 0.8 (0.2-1.0) mg/dL AST 24 (15-37) U/L ALT 40 (14-59) U/L Alkaline Phosphatase 88 (46-116) U/L Albumin 4.8 (3.4-5.0) g/dL ABG ABG results: 05/03/25 10:48 VBG pH 7.571 H VBG pCO2 22.2 L Assessment and Plan Assessment and Plan (1) Dehydration: (2) JAN (acute kidney injury): (3) Abdominal cramping: (4) Gastritis: (5) Pott's disease: (6) Cyclic vomiting syndrome: (7) Acute hypokalemia: (8) Drug abuse, marijuana: (9) Acute UTI: Plan Admission findings: Sinus tachycardia, mildly elevated high blood pressure, leukocytosis, respiratory alkalosis, acute kidney injury stage I-(baseline creatinine of 0.72, admission creatinine of 1.27 which is 176.4% above baseline) with decreased urine output with resultant acute kidney injury stage I, lactic acidosis, hypokalemia consistent with cyclic vomiting syndrome and dehydration Cyclic vomiting syndrome and dehydration-IV fluids, repeat labs in a.m., Reglan for nausea vomiting, Haldol for abdominal pain, Levsin [id number] for abdominal pain, check urine drug screen Acute kidney injury stage I as outlined above-IV fluids overnight repeat labs in a.m. Leukocytosis and lactic acidosis with a history of UTI-urine is pending-start patient on IV antibiotics, unable to tolerate oral Respiratory alkalosis secondary to the cyclic vomiting syndrome-could repeat pH, patient is stable or just monitor as an outpatient Admission status: Patient presented with significant dehydration resulting in lactic acidosis and acute kidney injury stage I, it is highly likely though that her medically necessary treatment will only span 1 midnight so make patient observation status, if medically necessary treatment will work to span 2 midnights, consideration for inpatient status
[2025-05-03 18:04] LABS: Magnesium 2.2 mg/dL (1.8-2.4)
[2025-05-03 19:26] VITALS: O2SAT 96
[2025-05-03] MEDS: PANTOPRAZOLE SODIUM 40 MG VIAL IV (20:42)
[2025-05-03] MEDS: ACETAMINOPHEN 500 MG TABLET 1000 MG PO (20:42)
[2025-05-03] MEDS: CEFTRIAXONE 1,000 MG in 0.9 % SODIUM CHLORIDE 50 ML 100 MG IV (20:42)
[2025-05-04] VITALS (8 sets, daily range): BP systolic 100–154; BP diastolic 62–83; PULSE 42–70; TEMP 36.7–36.9; O2SAT 98–99
--- NOTE | 2025-05-04 02:20 | ECG_ITS ---
[facility] Test Date: 2025-05-04 Pat Name: PILI SEGURA Department: Room: 2291 Gender: Female Correctional Treatment Specialist: : 2005 Requested By: [id number] Order Number: [id number] Reading MD: WILLIAM LEUNG M.D. Measurements Intervals [place] Rate: 48 P: 59 NM: 134 QRS: 43 QRSD: 83 T: 38 QT: 456 QTc: 409 Interpretive Statements SINUS BRADYCARDIA WITH OCCASIONAL SUPRAVENTRICULAR PREMATURE COMPLEXES Borderline ECG Compared to ECG 05/01/2025 21:39:13 Sinus tachycardia no longer present Electronically Signed On 05-04-2025 6:26:41 EDT by WILLIAM LEUNG M.D.
[2025-05-04 04:11] LABS: Anion Gap 16.8; BUN Creatinine Ratio 35.1; Calcium 9.1 mg/dL (8.5-10.1); Carbon Dioxide 26.4 mmol/L (21.0-32.0); Chloride 102 mmol/L (98-107); Estimated GFR (African America >60 (>=60 mL/min/1.73m^2); Estimated GFR (Non-African Ame >60 (>=60 mL/min/1.73m^2); Glucose 105 mg/dL (74-106); Magnesium 2.2 mg/dL (1.8-2.4); Potassium 3.2 mmol/L (3.5-5.1); Sodium 142 mmol/L (136-145)
[2025-05-04] MEDS: HALOPERIDOL LACTATE 5 MG/ML VIAL 1 MG IV (04:40)
[2025-05-04 06:07] LABS: Basophils Percent Auto 0.2 % (0.2-2.0); Eosinophils Percent Auto 0.2 % (0.9-7.0); Hematocrit 35.4 % (36.0-48.0); Immature Granulocytes Abs Auto 0.08 10^3/uL (0.00-0.03); Immature Granulocytes Pct Auto 0.6 % (0.0-0.5); Lymphocytes Absolute Auto 1.5 10^3/uL (1.2-3.8); Lymphocytes Percent Auto 10.4 % (20.5-60.0); Mean Corpuscular HGB Conc 33.9 g/dL (29.9-35.2); Mean Corpuscular Hemoglobin 29.2 pg (26.7-34.0); Mean Corpuscular Volume 86.1 fL (81.0-99.0); Monocytes Absolute Auto 1.1 10^3/uL (0.3-0.8); Monocytes Percent Auto 7.7 % (1.7-12.0); Neutrophils Absolute Auto 11.2 10^3/uL (1.4-6.5); Neutrophils Percent Auto 80.9 % (43.0-75.0); Platelet Count 219 10^3/uL (150-450); Red Blood Count 4.11 10^6/uL (4.20-5.40); Red Cell Distribution Width 12.7 % (11.0-15.0); White Blood Count 13.9 10^3/uL (4.0-11.0)
[2025-05-04] MEDS: ONDANSETRON PF 4 MG/2 ML VIAL IV ×2 (06:19→10:07)
[2025-05-04 06:24] LABS: Anion Gap 15.9; BUN Creatinine Ratio 41.9; Calcium 8.8 mg/dL (8.5-10.1); Carbon Dioxide 24.4 mmol/L (21.0-32.0); Chloride 103 mmol/L (98-107); Estimated GFR (African America >60 (>=60 mL/min/1.73m^2); Estimated GFR (Non-African Ame >60 (>=60 mL/min/1.73m^2); Glucose 115 mg/dL (74-106); Magnesium 2.3 mg/dL (1.8-2.4); Potassium 3.3 mmol/L (3.5-5.1); Sodium 140 mmol/L (136-145)
[2025-05-04 06:34] LABS: Bilirubin Urine NEGATIVE (NEGATIVE); Blood Urine LARGE (NEGATIVE); Clarity Urine CLEAR (CLEAR); Color Urine YELLOW (YELLOW); Glucose Urine UA NEGATIVE (NEGATIVE); Ketones Urine >=80 mg/dL (NEGATIVE); Leukocyte Esterase Urine NEGATIVE (NEGATIVE); Nitrite Urine NEGATIVE (NEGATIVE); Protein Urine TRACE mg/dL (NEG/TRACE); Urobilinogen Urine 0.2 EU/dL (0.2-1.0); pH Urine 6.5 (5.0-9.0)
[2025-05-04 06:36] LABS: HCG Qualitative Urine* NEGATIVE (NEGATIVE); Internal Control Within Normal Limits
[2025-05-04 06:42] LABS: Amphetamine Screen Urine NEGATIVE (NEGATIVE); Barbiturates Screen Urine NEGATIVE (NEGATIVE); Benzodiazepines Screen Urine NEGATIVE (NEGATIVE); Buprenorphine Screen Urine NEGATIVE (NEGATIVE); Cannabinoid Screen Urine POSITIVE (NEGATIVE); Cocaine Screen Urine NEGATIVE (NEGATIVE); Methadone Screen Urine NEGATIVE (NEGATIVE); Methamphetamines Screen Urine NEGATIVE (NEGATIVE); Opiate Screen Urine NEGATIVE (NEGATIVE); Oxycodone Screen Urine NEGATIVE (NEGATIVE); Phencyclidine Screen Urine NEGATIVE (NEGATIVE); Tricyclic Antidepressant Urine NEGATIVE (NEGATIVE)
[2025-05-04 06:49] LABS: Bacteria Urine TRACE #/HPF (NONE SEEN); Cast Seen? NONE SEEN #/LPF (NONE SEEN); Crystals Seen? None Seen #/HPF (None Seen); Mucus Urine SMALL (NONE SEEN); Squamous Epithelial Cell Urine MODERATE #/LPF (NONE/RARE); Urine Culture Indicated ALREADY ORDERED
[2025-05-04] MEDS: HYOSCYAMINE SULFATE 0.125 MG TAB.SUBL 0.25 MG SL (07:25)
[2025-05-04] MEDS: 0.9 % SODIUM CHLORIDE 1,000 ML 100 ML IV (08:52)
--- NOTE | 2025-05-04 10:05 | PM.DS1 ---
DS: Providers Provider Date of admission: 05/03/25 14:12 Primary care physician: Modesta Chand NP Admitting clinician: Jasmeet Dahl Discharging clinician: Johanna Garber DS: Diagnosis Discharge Diagnosis (1) Dehydration: (2) JAN (acute kidney injury): (3) Abdominal cramping: (4) Gastritis: Qualifiers: Chronicity: acute Gastritis bleeding: without bleeding Gastritis type: unspecified gastritis Qualified Code(s): K29.00 - Acute gastritis without bleeding (5) Pott's disease: (6) Cyclic vomiting syndrome: (7) Acute hypokalemia: (8) Drug abuse, marijuana: (9) Acute UTI: DS: Summary Hospital Course Hospital Course: Patient was admitted with increasing nausea and vomiting, she was in the ER just a few days prior, was encouraged to stay, left AMA at that point, upon presentation had elevated BUN and creatinine which is now normal range with IVF, cr 0.62, hypokalemia up to 3.3 today. She is tolerating some bland diet. Urine culture is pending at the time of discharge. Will treat with Cefdnir 300mg BID x 5 days. Has been doing well on Rocephin IV. Patient also states she is ready to go home. I have sent in Zofran and Phenergan as well for home. She may eat bland diet and advance as tolerated. Encouraged her to call her PCP tuesday to set up hospital follow up in 5-7 days. Return to the ER with any worsening signs or symptoms. Status at Discharge Overall status at discharge: patient is progressing back to baseline Time Spent with Patient Time attestation: Total time spent providing and/or coordinating discharge services: Time spent: greater than 30 minutes Exam Narrative Exam Narrative: General: Patient is alert, and oriented to person, place and time with normal affect, proper hygiene Skin: no visible rashes, or ulcers Head: atraumatic, acephalic Neck: no masses palpated, normal thyroid Heart: Normal rate and rhythm, no murmurs/rubs/gallops Lungs: no audible wheezes, crackles and normal breath sounds all lung arevalo Abdomen: Normal audible bowel sounds, no distension, Musculoskeletal: no swelling bilateral lower extremities Neuro: CN II-X grossly intact Constitutional Vital Signs, click to edit/add: Last Vital Signs Temp 98.4 F 05/04/25 07:23 Pulse 45 L 05/04/25 08:00 Resp 16 05/04/25 07:23 BP 154/78 H 05/04/25 07:23 Pulse Ox 98 05/04/25 07:23 O2 Del Method Room Air 05/04/25 07:23 DS: Data Data Completed and Pending Labs on day of discharge: Labs from last 24 hours 05/04/25 05/04/25 05/04/25 06:20 05:42 03:50 WBC 13.9 H RBC 4.11 L Hgb 12.0 Hct 35.4 L MCV 86.1 MCH 29.2 MCHC 33.9 RDW 12.7 Plt Count 219 MPV 10.0 Neut % (Auto) 80.9 H Lymph % (Auto) 10.4 L [place] % (Auto) 7.7 Eos % (Auto) 0.2 L Baso % (Auto) 0.2 Neut # (Auto) 11.2 H Lymph # (Auto) 1.5 [place] # (Auto) 1.1 H Eos # (Auto) 0.0 Baso # (Auto) 0.0 Abs Immat Gran (auto) 0.08 H Imm/Tot Granulo (auto) 0.6 H VBG pH VBG pCO2 Sodium 140 142 Potassium 3.3 L 3.2 L Chloride 103 102 Carbon Dioxide 24.4 26.4 Anion Gap 15.9 16.8 BUN 26.0 H 27.0 H Creatinine 0.62 0.77 Est GFR ( Amer) >60 >60 Est GFR (Non-Af Amer) >60 >60 BUN/Creatinine Ratio 41.9 35.1 Glucose 115 H 105 Lactate Calcium 8.8 9.1 Magnesium 2.3 2.2 Total Bilirubin AST ALT Alkaline Phosphatase Total Creatine Kinase Total Protein Albumin Globulin Albumin/Globulin Ratio Lipase Urine Color Yellow Urine Clarity Clear Urine pH 6.5 Ur Specific [place] 1.020 Urine Protein Trace Urine Glucose (UA) Negative Urine Ketones >=80 A Urine Occult Blood Large A Urine Nitrite Negative Urine Bilirubin Negative Urine Urobilinogen 0.2 Ur Leukocyte Esterase Negative Urine RBC 2-5 A Urine WBC 2-5 A Ur Squamous Epith Cells Moderate A Urine Crystals None seen Urine Bacteria Trace A Urine Casts None seen Urine Mucus Small A Ur Culture Indicated? Already ordered Urine HCG, Qual Negative Urine Opiates Screen Negative Ur Buprenorphine Scrn Negative Ur Oxycodone Screen Negative Urine Methadone Screen Negative Ur Barbiturates Screen Negative U Tricyclic Antidepress Negative Ur Phencyclidine Scrn Negative Ur Amphetamines Screen Negative U Methamphetamines Scrn Negative U Benzodiazepines Scrn Negative Urine Cocaine Screen Negative U Cannabinoids Screen Positive A 05/03/25 05/03/25 05/03/25 14:08 10:48 09:05 WBC 14.8 H RBC 5.19 Hgb 15.2 Hct 43.0 MCV 82.9 MCH 29.3 MCHC 35.3 H RDW 12.7 Plt Count 328 MPV 11.0 Neut % (Auto) 77.7 H Lymph % (Auto) 12.2 L [place] % (Auto) 9.5 Eos % (Auto) 0.1 L Baso % (Auto) 0.1 L Neut # (Auto) 11.5 H Lymph # (Auto) 1.8 [place] # (Auto) 1.4 H Eos # (Auto) 0.0 Baso # (Auto) 0.0 Abs Immat Gran (auto) 0.06 H Imm/Tot Granulo (auto) 0.4 VBG pH 7.571 H VBG pCO2 22.2 L Sodium 138 Potassium 3.3 L Chloride 97 L Carbon Dioxide 21.3 Anion Gap 23.0 BUN 51.0 H Creatinine 1.27 H Est GFR ( Amer) >60 Est GFR (Non-Af Amer) 53 L BUN/Creatinine Ratio 40.2 Glucose 147 H Lactate 1.5 2.1 H* Calcium 10.5 H Magnesium 2.2 Total Bilirubin 0.8 AST 24 ALT 40 Alkaline Phosphatase 88 Total Creatine Kinase 81 Total Protein 9.1 H Albumin 4.8 Globulin 4.3 Albumin/Globulin Ratio 1.1 Lipase 26.0 Urine Color Urine Clarity Urine pH Ur Specific [place] Urine Protein Urine Glucose (UA) Urine Ketones Urine Occult Blood Urine Nitrite Urine Bilirubin Urine Urobilinogen Ur Leukocyte Esterase Urine RBC Urine WBC Ur Squamous Epith Cells Urine Crystals Urine Bacteria Urine Casts Urine Mucus Ur Culture Indicated? Urine HCG, Qual Urine Opiates Screen Ur Buprenorphine Scrn Ur Oxycodone Screen Urine Methadone Screen Ur Barbiturates Screen U Tricyclic Antidepress Ur Phencyclidine Scrn Ur Amphetamines Screen U Methamphetamines Scrn U Benzodiazepines Scrn Urine Cocaine Screen U Cannabinoids Screen Discharge Plan Discharge Disposition: Home, Self-Care Condition: Fair Discharge Medications: New ondansetron HCl 4 mg tablet 4 mg PO Q8H PRN (Reason: nausea and vomiting) 3 Days Qty: 10 0RF promethazine 25 mg tablet 12.5 mg PO Q6H PRN (Reason: nausea and vomiting) Qty: 10 0RF Rx Instructions: ok to use if zofran does not work cefdinir 300 mg capsule 300 mg PO Q12H 5 Days Qty: 10 0RF Activity: resume usual activities as tolerated Diet: advance to your usual diet Print Language: Lao Patient Instructions: Promethazine (By mouth) (Phenergan, Promacot), Ondansetron (By mouth), Cefdinir (By mouth), Cannabis Use Disorder (GEN), Cyclic Vomiting Syndrome (GEN) Activity Restrictions/Additional Instructions: No marijuana Forms: Portal Instructions Follow Up Appointments: Call Tuesday to make hospital follow up appointment with PCP for 5-7 days
[2025-05-04] MEDS: PROCHLORPERAZINE 10 MG/2 ML VIAL IV (10:13)
--- NOTE | 2025-05-06 14:19 | CM.DCFOLLOWU ---
1st attempt. No answer
--- NOTE | 2025-05-08 15:11 | CM.DCFOLLOWU ---
Person spoke with: Coral How are you feeling? Much better How is your pain? No pain Did you understand your discharge instructions? Yes Do you have any questions about your discharge instructions? No Were you given any prescriptions at discharge? Yes Were you able to get your prescriptions filled? Some of them unsure which medications, stressed importance of getting medications filled and taking as prescribed Do you understand how to take your medications as ordered? Yes Do you have any questions about your follow up appointment and do you plan to keep your follow up appointment? I have not scheduled appt yet Is there anything else that you would like to discuss? No Questions/Comments/Concerns/Other:
== END 2025-05-04 11:23 | disposition home or self-care (01) ==
LOC: ER 14:16 → MS 14:17
PROVIDERS: Family Medicine; Registered Nurse; Admitting Provider Family Medicine; Emergency Provider Emergency Medicine; PCP Nurse Practitioner Family; Visit Provider Family Medicine
DX: E86.0 Dehydration (principal); N17.9 Acute kidney failure, unspecified; R11.15 Cyclical vomiting syndrome unrelated to migraine; F12.10 Cannabis abuse, uncomplicated; F17.200 Nicotine dependence, unspecified, uncomplicated; G90.A Postural orthostatic tachycardia syndrome [POTS]; Z90.49 Acquired absence of other specified parts of digestive tract; E87.6 Hypokalemia; R10.9 Unspecified abdominal pain; N39.0 Urinary tract infection, site not specified; E87.3 Alkalosis; K29.00 Acute gastritis without bleeding
CPT/HCPCS: 36415; 80048; 80053; 80307; 81001; 82550; 82800; 83605; 83690; 83735; 84703; 85025; 87086; 93005; 94761; 96361; 96365; 96366; 96372; 96375; 96376; 99285; 99406; G0378; J0500; J0696; J0780; J1630; J1885; J2405; J3490

== ENCOUNTER 2025-05-06 06:04 | Emergency (ER) | payer OTHER, SELFPAY ==
[2025-05-06 06:08] VITALS: BP 144/98; PULSE 53; TEMP 36.9; O2SAT 99; BMI 35.4
--- OUTSIDE RECORDS SUMMARY | 2025-05-06 06:15 | XMS_ITS | CCD ---
Author Organization [facility] Care Team Providers Care Elevator Examiner And Adjuster Name Role Phone Calvin, Mere T Unavailable [...] Nilay Unavailable Unavailable Bumagina, Nilay Unavailable Unavailable Calvni, Mere T Unavailable Unavailable Bumagina, Nilay Unavailable [...] Nilay Unavailable Unavailable Unavailable Primary [facility] Primary Care Provider DO Art Bianchi Emergency Provider Donovan, DO Ender J Emergency Provider Tugisselle, DO VoRavi M Emergency Provider Matthew DO Gilson Emergency Provider MILY Chand Attending Pr ovider MD Brennen Britt Attending Provider [facility] Prov ider [facility] Primary Care Provider FRANKY Rivera Emergency Provider [phone] MD Colten Fry Jr Emergency Provider DO Matthew Gilson Emergency Provider Aurelio, DO Gregorio Admit Provider Aurelio DO Gregorio Attending Provider [facility] Prov ider FRANKY Rivera Emergency Provider MD Colten Fry Jr Emergency Provider Matthew DO Gilson Emergency Provider Aurelio DO Gregorio Admit Provider Aurelio, DO Gregorio Attending Provider MILY Chand Attending Pr ovider Tugisselle, DO Rodrigues M Emergency Provider [facility] Prov ider FRANKY Rivera Emergency Provider MD Colten Fry Jr Emergency Provider DO Matthew Gilson Emergency Provider Aurelio, DO Gregorio Admit Provider Aurelio DO Gregorio Attending Provider MILY Chand Attending Pr ovider DO Ravi Arguello Emergency Provider DO Art Bianchi Emergency Provider [phone] DO Robert Bolanos Emergency Provider [facility] Primary Care Provider MD Corey Newberry Emergency Provider [facility] Primary Care Prov ider DO Federico Randolph Emergency Provider KATE Damian Emergency Provider MD Eliana Bautista Admit Provider [phone] MD Eliana Bautista Attending Provider SANDRO, DR VU Primary Care Unavailable DALIA ., AUSTIN Admitting Unavailable DALIA ., AUSTIN Attending Unavailable DALIA ., AUSTIN Consulting Unavailable DIAB ., IRWIN Admitting Unavailable ETHAN ., IRWIN Attending Unavailable SANDRO, DR VU Primary Care Unavailable KIA ARVIZU Consulting Unavailable ETHAN ., IRWIN Consulting Unavailable Colten Miller Unavailable [facility] Primary Care Provider MILY Chand Attending Pr ovider MD Colten Miller Attending Provider [phone] [facility] Primary Care Provider DO Ravi Arguello Emergency Provider MODESTA ARCHIBALD Primary Care Physician [facility] Primary Care Provider [phone] MD Femi Benitez Emergency Provider Cresencio Abel Attending Unavailable MODESTA ARCHIBALD Primary Care Unavailable MODESTA ARCHIBALD Primary Care Unavailable August Beck Attending Unavailable MODESTA ARCHIBALD Primary Care Unavailable DO Isaak Francis Attending Unavailable [facility] Primary Care Provider MD Ania Watson Emergency Provider [phone] MODESTA ARCHIBALD Primary Care Unavailable August Beck Attending Unavailable Cresencio Abel Attending Unavailable MODESTA ARCHIBALD Primary Care Unavailable MODESTA CHAND Primary Care Physician [phone] August Beck Attending Unavailable August Beck Attending Unavailable August Beck Attending Unavailable [facility] Primary Care Provider Rd Brown PA-C Emergency Provider [phone] Makayla Monk DO Attending Provider [phone] Jasmeet Dahl MD Attending Provider Jasmeet Dahl Attending Unavailable Jasmeet Dahl Admitting Unavailable Makayla Monk Admitting Unavailable Makayla Monk Attending Unavailable [facility] Primary Care Unavaila Ania Paz Attending Unavailable Ania Watson Admitting Unavailable [facility] Primary Care UnavailRd Lebron Admitting Unavailable Rd Brown Attending Unavailable Allergies Allergy Classification Reported Allergen(s) Allergy Type Date of Onset Reaction(s) Facility (14 sources) Haloperidol; Translations: [Haloperidol] Drug Allergy 3 Unknown Reaction, facial droop [facility] (16 sources) Metoclopramide; Translations: [Metoclopramide] Drug Allergy 3 Unknown (qualifier value) [facility] (5 sources) Haloperidol; Translations: [Haldol] Drug Allergy [facility] (5 sources) Iothalamate; Translations: [Reglan] Drug Allergy [facility] Medications Current Medications Medication Drug Class(es) Dates Sig (Normalized) Sig (Original) acetaminophen 325 mg / HYDROcodone bitartrate 5 mg oral tablet (20 sources) Opioid Agonist Start: 03-13-2024 End: 03-16-2024 Bernie 325 mg-5 mg oral tablet 1 tab(s), Oral, q6hr for pain for 3 day(s), 7 tab(s), Refill(s) 0, [id number], 160, cm, 03/13/24 17:38:00 EDT, Height/Length Dosing, [...] mouth every six hours as needed for pain Hydrocodone-Acetaminophen (Bernie) 5-325 mg tablet Discontinued 1 TAB PO Q6H as needed for pain 6 December 15, 2019 December 31, 2019 1:37pm Start: 12-15-2019 End: 12-31-2019 Start: 04-20-2019 End: 05-05-2019 take 1 tablet by mouth every six hours as needed for pain Hydrocodone-Acetaminophen 5-325 mg Table t Discontinued 1 TAB PO Q6H as needed for Pain 20 April 20, 2019 May 05, 2019 8:42pm Start: 04-20-2019 End: 05-05-2019 Start: 02-19-2019 End: 03-08-2019 take 1 tablet by mouth twice daily as needed for pain Hydrocodone-Acetaminophen (Bernie) 5-325 mg tablet Discontinued 1 TAB PO Twice daily as needed for pain 6 February 19, 2019 March 08, 2019 3:53pm Start: 02-19-2019 End: 03-08-2019 Comment on above: Take 15 mL by mouth every 8 hours as needed for pain. cephalexin 500 mg oral capsule (20 sources) Cephalosporin Antibacterial Start: take 1 capsule by mouth every eight hours Cephalexin 500 mg capsule Active 500 MG PO Q8H 26 09October 28, 2024 1:00am Start: 05-24-2023 take 1 capsule by mo uth every eight hours Cephalexin 500 MG 1 capsule Orally every 8 hrs for 2 days Apr, Active Start: 02-06-2022 End: 03-08-2022 take 1 tablet by mouth four times daily Cephalexin 250 mg tablet Discontinued 250 MG PO Four times daily 24 06February 06, 2022 1:00am March 08, 2022 8:15pm Start: 08-20-2021 End: 09-05-2021 take 1 capsule by mouth twice daily Cephalexin 500 mg capsule Discontinued 500 MG PO Twice daily August 20, 2021 12:00am September 05, 2021 11:25pm Start: 06-01-2021 End: 07-19-2021 take 2 capsules by mouth every twelve hours Cephalexin 500 mg Capsule Discontinued 1000 MG PO Q12H 40 June 01, 2021 12:00am July 19, 2021 2:07pm Start: 06-01-2021 End: 07-19-2021 take 1000 mg by mouth every twelve hours Cephalexin Discontinued 1000 MG PO Q12H 40 June 01, 2021 12:00am July 19, 2021 2:07pm Start: 06-01-2021 End: 07-19-2021 Start: 04-14-2021 End: 05-10-2021 take 2 capsules by mouth twice daily Cephalexin 500 mg capsule Discontinued 1000 MG PO Twice daily April 14, 2021 12:00am May 10, 2021 11:08am Start: 04-14-2021 End: 05-10-2021 take 1000 mg [...] day(s), # 21 tab(s), Refills(s) 0, Pharmacy: [facility]/pharmacy #[id number], 157, cm, 01/16/25 17:56:00 [...] day(s), # 9 tab(s), Refills(s) 0, Pharmacy: [facility]/pharmacy #[id number], 160, cm, 03/13/24 17:38:00 [...] food, # 20 tab(s), Refills(s) 0, Pharmacy: [facility]/pharmacy #[id number], 157, cm, 01/16/25 17:56:00 EST, Height/Length Dosing, 95, kg, 01/16/25 17:56:00 EST, Weight Dosing Start Date: 01/16/25 Status: Ordered Start: 02-19-2019 End: 03-08-2019 take 1 tablet by mouth twice daily as needed for pain Naproxen 500 mg tablet Discontinued 500 MG PO Twice daily as needed for pain February 19, 2019 12:00am March 08, 2019 3:53pm administer with food or milk ondansetron 4 mg disintegrating oral tablet (20 sources) Serotonin-3 Receptor Antagonist Start: 03-18-2024 Ondansetron 4 mg tablet,disintegrating Active 4 MG PO every 6 to 8 hours as needed for Nausea March 18, 2024 12:00am Start: 11-09-2022 End: 10-28-2024 take 1 tablet by mouth every eight hours as needed for nausea and vomiting Ondansetron 8 mg tablet,disintegrating Discontinued 8 MG PO Q8H as needed for nausea and vomiting 10 November 09, 2022 1:00am October 28, 2024 10:59pm Start: 11-07-2022 End: 11-09-2022 Ondansetron Hcl 4 mg tablet Discontinued 4 MG PO every 6 to 8 hours as needed for nausea and vomiting November 07, 2022 1:00am November 09, 2022 4:12pm Start: 08-20-2022 End: 01-06-2023 Ondansetron 4 mg tablet,disi ntegrating Discontinued 4 MG PO every 6 to 8 hours as needed for Nausea August 20, 2022 12:00am January 06, 2023 5:46pm Start: 05-14-2022 End: 08-18-2022 take 1 tablet by mouth every eight hours as needed for nausea and vomiting Ondansetron 4 mg tablet,disintegrating Discontinued 4 MG PO Q8H as needed for nausea and vomiting 7 May 14, 2022 12:00am August 18, 2022 12:32pm Start: 02-07-2022 End: 03-08-2022 Ondansetron 4 mg Tablet,Disi ntegrating Discontinued 4 MG PO every 6 to 8 hours as needed for Nausea February 07, 2022 1:00am March 08, 2022 8:15pm Start: 07-15-2021 End: 07-19-2021 take 1 tablet by mouth every eight hours as needed for nausea and vomiting Ondansetron Hcl (Zofran) 4 mg tablet Discontinued 4 MG PO Q8H as needed for nausea and vomiting 10 July 15, 2021 12:00am July 19, 2021 2:07pm Start: 04-14-2021 End: 07-19-2021 take 1 tablet by mouth every eight hours as needed for nausea and vomiting Ondansetron 8 mg tablet,disintegrating Discontinued 8 MG PO Q8H as needed for nausea and vomiting 10 April 14, 2021 12:00am July 19, 2021 2:07pm Start: 10-02-2020 End: 04-14-2021 take 1 tablet by mouth every eight hours as needed for nausea and vomiting Ondansetron 4 mg tablet,disintegrating Discontinued 4 MG PO Q8H as needed for nausea and vomiting 3 October 07, 2020 1:00am January 12, 2021 1:35pm Start: 09-23-2020 End: 01-12-2021 take 1 tablet by mouth every eight hours as needed for nausea and vomiting Ondansetron Hcl 4 mg tablet Discontinued 4 MG PO Q8H as needed for nausea and vomiting September 23, 2020 12:00am January 12, 2021 1:35pm Start: 06-25-2020 End: 07-19-2020 take 1 tablet by mouth three times daily as needed for nausea and vomiting Ondansetron 4 mg tablet,disintegrating Discontinued 4 MG PO Three times daily as needed for nausea and vomiting 10 June 25, 2020 12:00am July 19, 2020 2:22pm Start: 01-03-2020 End: 02-19-2020 take 1 tablet by mouth every eight hours as needed for nausea and vomiting Ondansetron Hcl (Zofran) 4 mg tablet Discontinued 4 MG PO Q8H as needed for nausea and vomiting 6 2 January 03, 2020 1:00am February 19, 2020 6:54pm Start: 10-25-2019 End: 09-23-2020 Ondansetron 4 mg tablet,disi ntegrating Discontinued 4 MG PO every 6 to 8 hours as needed for nausea and vomiting April 23, 2020 12:00am May 19, 2020 4:07am Start: 09-30-2019 End: 10-24-2019 take 1 tablet by mouth four times daily as needed for nausea and vomiting Ondansetron Hcl (Zofran) 4 mg tablet Discontinued 4 MG PO Four times daily as needed for nausea and vomiting September 30, 2019 12:00am October 24, 2019 10:46pm Start: 09-30-2019 End: 10-24-2019 Start: 06-24-2019 End: 09-03-2019 take 1 tablet by mouth every six hours as needed for nausea and vomiting Ondansetron 4 mg tablet,disintegrating Discontinued 4 MG PO Q6H as needed for nausea and vomiting June 24, 2019 12:00am September 03, 2019 8:25pm Start: 06-24-2019 End: 09-03-2019 Start: 05-02-2019 End: 09-03-2019 Ondansetron 8 mg tablet,disi ntegrating Discontinued 8 MG PO EVERY 8-12 HOURS as needed for nausea and vomiting June 02, 2019 12:00am September 03, 2019 8:25pm Start: 05-02-2019 End: 09-03-2019 take 1 tablet by mouth three times daily as needed for nausea and vomiting Ondansetron 8 mg tablet,disintegrating Discontinued 8 MG PO Three times daily as needed for nausea and vomiting May 02, 2019 12:00am September 03, 2019 8:25pm Start: 02-19-2019 End: 03-08-2019 take 1 tablet by mouth every eight hours as needed for nausea and vomiting Ondansetron 4 mg tablet,disintegrating Discontinued 4 MG PO Q8H as needed for nausea and vomiting February 19, 2019 12:00am March 08, 2019 3:53pm Start: 12-28-2018 End: 05-05-2019 take 1 tablet by mouth three times daily as needed for nausea and vomiting Ondansetron Hcl (Zofran) 8 mg Tablet Discontinued 8 MG PO Three times daily as needed for Nausea And Vomiting December 28, 2018 1:00am May 05, 2019 8:42pm Start: 09-04-2018 End: 10-16-2018 take 1 tablet by mouth every eight hours as needed for nausea and vomiting Ondansetron (Zofran Odt) 4 mg tablet,disintegrating Discontinued 4 MG PO Q8H as needed for nausea and vomiting 9 3 September 04, 2018 12:00am October 16, 2018 4:08pm Start: 08-29-2018 End: 09-01-2018 take 1 tablet by mouth every eight hours Ondansetron (Zofran Odt) 4 mg tablet,disintegrating Discontinued 4 MG PO Q8H 9 3 August 29, 2018 12:00am August 31, 2018 12:00am September 01, 2018 12:02am Start: 03-27-2018 End: 04-06-2018 take 1 tablet by mouth every four hours for nausea Ondansetron (Zofran Odt) 4 mg Tablet,Disintegrating Discontinued 4 MG PO Q4H as needed for Nausea March 27, 2018 12:00am April 06, 2018 12:29am administer first dose 30 minutes before start of emetogenic chemotherapy Start: 03-27-2018 End: 04-06-2018 Start: 01-03-2018 End: 01-17-2018 Ondansetron (Zofran Odt) 4 m g tablet,disintegrating Discontinued 8 MG PO Q8H as needed for nausea and vomiting 9 3 January 03, 2018 1:00am January 17, 2018 3:10am Start: 01-03-2018 End: 01-17-2018 Start: 10-03-2017 End: 10-06-2017 take 1 tablet by mouth every eight hours as needed for nausea Ondansetron (Zofran Odt) 4 mg tablet,disintegrating Discontinued 4 MG PO Q8H as needed for nausea October 03, 2017 1:00am October 06, 2017 1:12am Start: 10-03-2017 End: 10-16-2018 take 1 tablet by mouth every eight hours as needed for nausea and vomiting Ondansetron 8 tablet,disintegrating Discontinued 8 MG PO Every 8 hours as needed for Nausea And Vomiting October 03, 2017 1:00am October 16, 2018 4:08pm take 1 tablet by kathe th every six hours as needed for vomiting Zofran 8 MG 1 tablet Orally q6h prn for vomiting for 5 days PRN Active potassium chloride 20 meq extended release oral tablet (20 sources) Start: 10-28-2024 take 1 tablet by mouth twice daily Potassium Chloride 20 mEq tablet extended release Active 20 MEQ PO Twice daily 10 October 28, 2024 1:00am Start: 08-22-2022 End: 11-09-2022 take 1 capsule by mouth once daily Potassium Chloride 10 mEq capsule, extended release Discontinued 10 MEQ PO Daily 10 August 22, 2022 12:00am November 09, 2022 4:12pm Start: 04-26-2018 End: 05-08-2018 take 20 mEq by mouth once daily Potassium Chloride 20 mEq packet Discontinued 20 MEQ PO Daily April 26, 2018 12:00am May 08, 2018 6:56pm promethazine hydrochloride 12.5 mg oral tablet (20 sources) Phenothiazine Start: 01-16-2025 take 1 tablet by mouth every six hours as needed for nausea promethazine 12.5 mg oral tablet 12.5 mg = 1 tab(s), Oral, q6hr, PRN for nausea/vomiting, # 10 tab(s), Refills(s) 0, Pharmacy: [facility]/pharmacy #[id number], 157, cm, 01/16/25 17:56:00 EST, Height/Length Dosing, 95, kg, 01/16/25 17:56:00 EST, Weight Dosing Start Date: 01/16/25 Status: Ordered Start: 07-30-2024 take 1 tablet by kathe th every eight hours as needed for nausea promethazine 12.5 mg oral tablet 12.5 mg = 1 tab(s), Oral, q8hr, PRN as needed for nausea/vomiting, second line, # 10 tab(s), Refills(s) 0, Pharmacy: [facility]/pharmacy #[id number], 157, cm, 07/30/24 19:37:00 EDT, Height/Length Dosing, 96.1, kg, 07/30/24 19:37:00 EDT, Weight Dosing Start Date: 07/30/24 Status: Ordered Start: 07-30-2024 take 12.5 mg rectal route every eight hours as needed for nausea Phenergan 12.5 mg Supp 12.5 mg = 1 supp, Rectal, q8hr, PRN as needed for nausea/vomiting, 3rd line, # 6 EA, Refills(s) 0, Pharmacy: [facility]/pharmacy #[id number], 157, cm, 07/30/24 19:37:00 EDT, Height/Length Dosing, 96.1, kg, 07/30/24 19:37:00 EDT, Weight Dosing Start Date: 07/30/24 Status: Ordered Start: 05-25-2023 End: 10-28-2024 Promethazine 25 mg tablet Discontinued 12.5 MG PO Three times daily as needed for nausea and vomiting May 25, 2023 8:37am October 28, 2024 10:59pm Start: 05-25-2023 take 12.5 mg by mout h three times daily Promethazine Active 12.5 MG PO Three times daily May 25, 2023 8:37am Start: 01-02-2023 End: 10-28-2024 Promethazine 25 mg supposito ry Discontinued 25 MG OH Q6H as needed for Nausea January 02, 2023 1:00am October 28, 2024 10:59pm Start: 12-31-2022 End: 05-25-2023 take 1 tablet by mouth three times daily as needed for nausea and vomiting Promethazine 25 mg tablet Discontinued 25 MG PO Three times daily as needed for nausea and vomiting January 07, 2023 1:00am May 25, 2023 8:36am Start: 05-15-2022 End: 08-18-2022 take 1 tablet by mouth three times daily as needed for nausea Promethazine 25 mg tablet Discontinued 25 MG PO Three times daily as needed for Nausea May 15, 2022 12:00am August 18, 2022 12:33pm Start: 02-09-2022 End: 03-08-2022 Promethazine 25 mg supposito ry Discontinued 25 MG OH Q6H as needed for nausea and vomiting February 09, 2022 12:00am March 08, 2022 8:15pm Start: 09-30-2021 End: 03-08-2022 take 3 tablets by mouth three times daily as needed for nausea and vomiting Promethazine 12.5 mg tablet Discontinued 12.5 MG PO Three times daily as needed for nausea and vomiting 11 04February 07, 2022 1:00am March 08, 2022 8:15pm 3 doses during day; last dose no later than 4 hr before bedtime Start: 09-30-2021 End: 02-06-2022 take 3 tablets by mouth twice daily as needed for nausea and vomiting Promethazine 12.5 mg tablet Discontinued 12.5 MG PO Twice daily as needed for nausea and vomiting September 30, 2021 12:00am February 06, 2022 11:25am 3 doses during day; last dose no later than 4 hr before bedtime Start: 09-30-2021 End: 10-08-2021 Promethazine 12.5 mg supposi tory Discontinued 12.5 MG OH Once September 30, 2021 12:00am October 08, 2021 9:34pm Start: 09-30-2021 End: 10-08-2021 Promethazine Discontinued 12 .5 MG OH Once September 30, 2021 12:00am October 08, 2021 9:34pm Start: 09-30-2021 End: 10-08-2021 Start: 04-23-2020 End: 06-25-2020 take 1 tablet by mouth every six hours as needed for nausea and vomiting Promethazine 12.5 mg tablet Discontinued 12.5 MG PO Q6H as needed for nausea and vomiting April 23, 2020 12:00am June 25, 2020 5:37pm Start: 03-21-2020 End: 06-25-2020 Promethazine 25 mg tablet Discontinued 12.5 MG PO Every 8 hours as needed for nausea and vomiting March 21, 2020 12:00am June 25, 2020 5:37pm Start: 03-21-2020 End: 06-25-2020 take 12.5 mg by mouth every eight hours Promethazine Discontinued 12.5 MG PO Every 8 hours March 21, 2020 12:00am June 25, 2020 5:37pm Start: 03-21-2020 End: 06-25-2020 Start: 05-10-2019 End: 09-03-2019 Promethazine (Phenergan) 25 mg suppository Discontinued 25 MG OH Q4H as needed for nausea and vomiting May 10, 2019 12:00am September 03, 2019 8:25pm Start: 03-08-2019 End: 03-23-2019 take 1 tablet by mouth every four to six hours as needed for nausea and vomiting Promethazine 25 mg tablet Discontinued 25 MG PO EVERY 4-6 HOURS as needed for nausea and vomiting March 08, 2019 12:00am March 23, 2019 5:49pm Start: 02-13-2018 End: 03-13-2018 Promethazine (Phenergan) 25 mg suppository Discontinued 25 MG OH Q8H as needed for nausea and vomiting February 13, 2018 12:00am March 13, 2018 10:44pm Start: 01-03-2018 End: 10-16-2018 Promethazine 25 mg supposito ry Discontinued 25 MG OH Q6H as needed for Nausea April 23, 2018 6:04pm October 16, 2018 4:08pm Start: 10-03-2017 End: 04-06-2018 take 1 tablet by mouth every twelve hours Promethazine 25 tablet Discontinued 25 MG PO Q12H October 03, 2017 1:00am April 06, 2018 12:30am Start: 08-24-2016 End: 01-06-2023 take 1 tablet by mouth every six hours as needed for nausea and vomiting Promethazine 25 mg tablet Discontinued 25 MG PO Q6H as needed for nausea and vomiting August 19, 2022 12:00am August 19, 2022 8:05pm Zofran ODT 4 mg Tab-Dis (2 sources) Start: 07-30-2024 take 1 tablet by mouth every eight hours as needed for nausea Zofran ODT 4 mg Tab-Dis 4 mg = 1 tab(s), Oral, q8hr, PRN Nausea/Vomiting, # 16 tab(s), Refills(s) 0, Pharmacy: [facility]/pharmacy #[id number], 157, cm, 07/30/24 19:37:00 EDT, Height/Length Dosing, 96.1, kg, 07/30/24 19:37:00 EDT, Weight Dosing Start Date: 07/30/24 Status: Ordered Completed/Discontinued Medications Medication Drug Class(es) Dates Sig (Normalized) Sig (Original) acetaminophen 325 mg / oxyCODONE hydrochloride 5 mg oral tablet (13 sources) Opioid Agonist Start: 05-25-2023 End: 10-28-2024 take 1 tablet by mouth twice daily Oxycodone-Acetamino phen 5-325 mg tablet Discontinued 5 - 325 TAB PO 2 times daily May 25, 2023 12:00am October 28, 2024 10:59pm Start: 05-24-2023 take 1 tablet by kathe th every four to six hours as needed for pain Percocet 5-325 MG 1 tablet as needed for pain Orally up to every 4-6 hrs for 5 days SANTO: [id number] Apr, Active take 1 tablet by kathe th every six hours oxyCODONE-Acetaminophen 5-325 MG 1 tablet as needed Orally every 6 hrs Active [id number] actuat albuterol 0.09 mg/actuat metered dose inhaler (20 sources) beta2-Adrenergic Agonist Start: 08-20-2021 End: 09-05-2021 Albuterol Sulfate 90 mcg/actuation HFA aerosol inhaler Discontinued 2 INH INHALATION Q6H as needed for shortness of breath or wheezing August 20, 2021 12:00am September 05, 2021 11:25pm administer with spacer Start: 08-20-2021 End: 09-05-2021 Start: 05-05-2019 End: 09-03-2019 take 1 puff(s) by inhalation every four to six hours as needed for wheezing Albuterol Sulfate (Proventil Hfa) 90 mcg/actuation Hfa Aerosol Inhaler Discontinued 2 PUFF INHALATION EVERY 4-6 HOURS as needed for Shortness Of Breath Or Wheezing May 05, 2019 12:00am September 03, 2019 [...] wheezing for 5 days PRN Jul, Active Albuterol Sulfate 90 mcg/actuation Hfa Aerosol Inhaler (2 sources) Start: 12-21-2017 End: 07-19-2021 take 1 puff(s) by inhalation every four to six hours as needed for wheezing Albuterol Sulfate 90 mcg/actuation Hfa Aerosol Inhaler Discontinued 2 PUFF INHALATION EVERY 4-6 HOURS as needed for Shortness Of Breath Or Wheezing December 21, 2017 1:00am July 19, 2021 2:07pm Start: 12-21-2017 End: 07-19-2021 take 1 puff(s) by inhalation every four to six hours as needed for wheezing Albuterol Sulfate 90 mcg/actuation Hfa Aerosol Inhaler Discontinued 2 PUFF INHALATION EVERY 4-6 HOURS as needed for Shortness Of Breath Or Wheezing December 21, 2017 12:00am July 19, 2021 1:07pm amitriptyline hydrochloride 25 mg oral tablet (20 sources) Tricyclic Antidepressant Start: 04-23-2018 End: 05-08-2018 take 10 mg by mouth at bedtime Amitriptyline 25 mg Tablet Discontinued 10 MG PO Bedtime April 23, 2018 12:00am May 08, 2018 6:55pm Start: 04-23-2018 End: 05-08-2018 take 10 mg by mouth at bedtime Amitriptyline Discontin ued 10 MG PO Bedtime April 23, 2018 12:00am May 08, 2018 6:55pm Start: 04-23-2018 End: 05-08-2018 Start: 03-13-2018 End: 03-22-2018 take 5 mg by mouth at bedtime Amitriptyline 10 mg tabl et Discontinued 5 MG PO Bedtime March 13, 2018 12:00am March 22, 2018 8:18am Start: 03-13-2018 End: 03-22-2018 take 5 mg by mouth at bedtime Amitriptyline Discontinu ed 5 MG PO Bedtime March 13, 2018 12:00am March 22, 2018 8:18am Start: 03-13-2018 End: 03-22-2018 amoxicillin 500 mg oral tablet (20 sources) Penicillin-class Antibacterial Start: 12-11-2019 End: 12-15-2019 take 1 tablet by mouth twice daily Amoxicillin 500 mg tablet Discontinued 500 MG PO Twice daily December 11, 2019 1:00am December 14, 2019 7:24pm Start: 09-30-2019 End: 10-24-2019 take 1 tablet by mouth three times daily Amoxicillin 500 mg tablet Discontinued 500 MG PO Three times daily September 30, 2019 12:00am October 24, 2019 10:47pm Start: 09-30-2019 End: 10-24-2019 Start: 03-13-2018 End: 03-22-2018 take 1 capsule by mouth every eight hours Amoxicillin 500 mg capsule Discontinued 500 MG PO Q8H March 13, 2018 12:00am March 22, 2018 8:19am Start: 10-31-2017 End: 11-10-2017 take 1 capsule by mouth every twelve hours Amoxicillin 500 mg capsule Discontinued 500 MG PO Q12H 16 09October 31, 2017 1:00am November 09, 2017 1:00am November 10, 2017 1:03am Start: [...] beta-Adrenergic Adán Start: 10-03-2017 End: 07-30-2018 take 1 tablet by mouth at bedtime Atenolol 25 tablet Discontinued 25 MG PO Bedtime October 03, [...] (20 sources) Corticosteroid Start: 10-03-2017 End: 10-16-2018 Beclomethasone Dipropionate 80 aerosol Discontinued 80 MCG INHALATION As Directed as needed for Dyspnea October 03, 2017 1:00am October 16, 2018 4:01pm Start: 10-03-2017 End: 10-16-2018 Beclomethasone Dipropionate 80 aerosol Discontinued 80 MCG INHALATION As Directed as needed for Dyspnea October 03, 2017 12:00am October 16, 2018 3:01pm Start: 10-03-2017 End: 10-16-2018 Start: 10-03-2017 End: [...] 1 capsule by mouth three times daily as needed for cough Benzonatate (Tessalon Perles) 100 mg capsule Discontinued 100 MG PO Three times daily as needed for cough May 02, 2019 12:00am September 03, 2019 8:24pm Start: 02-08-2019 End: 03-08-2019 take 1 capsule by mouth three times daily as needed for cough Benzonatate (Tessalon Perles) 100 mg capsule Discontinued 100 MG PO Three times daily as needed for cough February 08, 2019 12:00am March 08, 2019 3:53pm cholecalciferol 0.125 mg oral capsule (20 sources) Vitamin D Start: 10-16-2018 End: 02-08-2019 Cholecalciferol (Vitamin D3) 5,000 unit Capsule Discontinued 5000 UNIT PO WE October 16, 2018 1:00am February 08, 2019 4:49pm Start: 10-16-2018 End: 02-08-2019 Start: 04-23-2018 End: 10-16-2018 take 1 capsule by mouth once daily Cholecalciferol (Vitamin D3) (Vitamin D3) 1,000 unit Capsule Discontinued 1000 UNIT PO Daily May 04, 2018 12:00am May 04, 2018 11:23pm cyproheptadine hydrochloride 4 mg oral tablet (20 sources) Start: 10-03-2017 End: 10-16-2018 take 1 tablet by mouth twice daily Cyproheptadine 4 tablet Discontinued 4 MG PO Twice daily October [...] 2018 12:00am December 28, 2018 6:13pm Norgestimate-Ethinyl Estradiol (20 sources) Progestin, Estrogen Start: 04-05-2018 End: 05-19-2020 take 1 tablet by mouth once daily Norgestimate-Ethinyl Estradiol 0.18/0.215/0.25 mg-35 mcg (28) tablet Discontinued 1 TAB PO Daily April 05, 2018 12:00am May 19, 2020 4:07am Start: 04-05-2018 End: 05-19-2020 take 1 tablet by mouth once daily Norgestimate-Ethinyl Estradiol 0.18/0.215/0.25 mg-35 mcg (28) tablet Discontinued 1 TAB PO Daily April 04, 2018 11:00pm May 19, 2020 3:07am Start: 04-05-2018 End: 05-19-2020 Start: 04-05-2018 End: [...] sources) Start: 10-03-2017 End: 10-16-2018 take 0.1 tablet by mouth twice daily Fludrocortisone 0.1 tablet Discontinued 0.1 MG PO Twice daily October 03, 2017 1:00am October 16, 2018 4:05pm gabapentin 600 mg oral tablet (20 sources) Anti-epilept ic Agent Start: 07-30-2018 End: 01-12-2021 take 1 tablet by mouth twice daily Gabapentin 600 mg Tablet Discontinued 600 MG PO Twice daily July 30, 2018 12:00am January 12, 2021 1:34pm Start: 10-03-2017 End: 01-12-2021 take 1 capsule by mouth once daily after lunch Gabapentin 300 capsule Discontinued 300 MG PO Daily after lunch October 03, 2017 1:00am January 12, 2021 1:34pm hydrocortisone 10 mg/ml / neomycin 3.5 mg/ml / polymyxin b [id number] unt/ml otic suspension (20 sources) Aminoglycoside Antibacterial, Polymyxin-class Antibacterial, Corticosteroid Start: 10-31-2017 End: 12-21-2017 Ccourqau-Llyjkckxe-Vd 3.5-10,000-1 mg/mL-unit/mL-% drops,suspension Discontinued 3 DROPS OTIC Three times daily October 31, 2017 1:00am December 21, 2017 8:00pm Start: 10-31-2017 End: 12-21-2017 hyoscyamine sulfate 0.125 mg sublingual tablet (20 sources) Start: 10-03-2017 End: 06-09-2018 take 1 tablet by mouth every eight hours Hyoscyamine Sulfate 0.125 tablet, sublingual Discontinued 0.125 MG PO Q8H October 03, 2017 1:00am June 09, 2018 9:37pm ibuprofen 800 mg oral tablet (20 sources) Nonsteroidal Anti-inflammatory Drug Start: 01-07-2020 End: 06-01-2021 take 1 tablet by mouth three times daily as needed for pain Ibuprofen 800 mg Tablet Discontinued 800 MG PO Three times daily as needed for Pain January 07, 2020 1:00am June 01, 2021 8:31am Start: 02-17-2019 End: 03-08-2019 take 1 tablet by mouth every eight hours as needed for pain Ibuprofen 600 mg tablet Discontinued 600 MG PO Q8H as needed for pain February 17, 2019 12:00am March 08, 2019 3:53pm ketorolac tromethamine 10 mg oral tablet (20 sources) Nonsteroidal Anti-inflammatory Drug, Cyclooxygenase Inhibitor Start: 12-28-2018 End: 02-16-2019 take 1 tablet by mouth three times daily Ketorolac 10 mg tablet Discontinued 10 MG PO Three times daily January 09, 2019 1:00am February 16, 2019 5:49pm Start: 12-28-2018 End: 01-09-2019 take 1 tablet by mouth once Ketorolac 10 mg tablet Dis continued 10 MG PO Once 4 December 28, [...] Enzyme Inhibitor Start: 10-16-2018 End: 01-12-2021 take 1 tablet by mouth once daily Lisinopril 10 mg Tablet Discontinued 10 MG PO Daily October 16, 2018 1:00am January 12, 2021 1:34pm Magnesium (16 sources) Start: 10-03-2017 End: 01-12-2021 take 2 tablets by mouth once daily Magnesium 200 mg Tablet Discontinued 400 MG PO Daily October 03, 2017 1:00am January 12, 2021 1:34pm Start: 10-03-2017 End: 01-12-2021 take 2 tablets by mouth once daily Magnesium 200 mg Tablet Discontinued 400 MG PO Daily October 03, [...] 10/09/2021 Active Start: 03-22-2018 End: 04-06-2018 Methylprednisolone 4 mg tabl ets,dose pack Discontinued 4 MG PO As Directed March 22, 2018 12:00am April 06, 2018 12:29am Start: 03-22-2018 End: 04-06-2018 Comment on above: Take as directed on packaging. metoclopramide 10 mg oral tablet (20 sources) Dopamine-2 Receptor Antagonist Start: 08-20-20 22 End: 08-22-20 22 take 1 tablet by mouth every six hours as needed for nausea and vomiting Metoclopramide Hcl (Reglan) 10 mg tablet Discontinued 10 MG PO Q6H as needed for nausea and vomiting 5 August 20, 2022 12:00am August 22, 2022 2:48pm mirtazapine 15 mg oral tablet (20 sources) Start: 12-11-19 20 End: 01-12-20 21 take 1 tablet by mouth once daily Mirtazapine 15 mg tablet Discontinued 15 MG PO Daily December 11, 2019 1:00am January 12, 2021 1:35pm Jphdyrkn-Opf-Lhsfbrr Fumarate (Multi Vitamin) 9 mg iron/15 mL Liquid (16 sources) Start: 09-30-20 End: 07-19-20 take 1 tablet by mouth once daily Lgdjeamh-Edx-Pnvnctn Fumarate (Multi Vitamin) 9 mg iron/15 mL Liquid Discontinued 1 TAB PO Daily September 29, 2019 11:00pm July 19, 2021 1:07pm Start: 09-30-2019 End: 07-19-2021 take 1 tablet by mouth once daily Zlooqcry-Nnb-Ihfekln Fumarate (Multi Vitamin) 9 mg iron/15 mL [...] Q12H 10 December 23, 2017 1:00am December 27, 2017 1:00am December 28, 2017 1:02am administer with a meal/food; swallow whole; do not open, crush, dissolve , or chew omeprazole 20 mg delayed release oral capsule (20 sources) Proton Pump Inhibitor Start: 08-22-2022 End: 05-25-2023 take 1 capsule by mouth twice daily as needed Omeprazole 20 mg capsule,delayed release(DR/EC) Discontinued 20 MG PO Twice daily as needed for Abdominal Discomfort January 06, 2023 5:44pm May 25, 2023 8:35am oseltamivir 75 mg oral capsule (20 sources) Neuraminidase Inhibitor Start: 12-23-2017 End: 01-17-2018 take 1 capsule by mouth every twelve hours Oseltamivir 75 mg Capsule Discontinued 75 MG PO Q12H December 23, 2017 1:00am January 17, 2018 3:10am oxymetazoline hydrochloride 0.5 mg/ml nasal spray (20 sources) Start: 12-23-2017 End: 03-13-2018 Oxymetazoline (Afrin (Oxymetazoline)) 0.05 % Eaton,Non-Aerosol Discontinued 2 SPRAY INTRANASAL Q12H December 23, 2017 1:00am March 13, 2018 10:44pm pantoprazole 40 mg delayed release oral tablet (20 sources) Proton Pump Inhibitor Start: 10-31-2022 End: 01-06-2023 take 1 tablet by mouth once daily Pantoprazole (Protonix) 40 mg tablet,delayed release (DR/EC) Discontinued 40 MG PO Daily October 31, 2022 1:00am January 06, 2023 5:44pm Start: 01-12-2021 End: 04-14-2021 take 1 tablet by mouth once daily Pantoprazole 40 mg tablet,delayed release (DR/EC) Discontinued 40 MG PO Daily January 12, 2021 1:00am April 14, 2021 8:21am Pantoprazole Sod ium Active penicillin v potassium 500 mg oral tablet (20 sources) Start: 05-10-2021 End: 06-01-2021 take 1 tablet by mouth twice daily Penicillin V Potassium 500 mg tablet Discontinued 500 MG PO Twice daily May 10, 2021 12:00am June 01, 2021 8:31am Start: 07-31-2018 End: 08-10-2018 Penicillin V Potassium 500 m g tablet Discontinued 1000 MG PO Twice daily 24 06July 31, 2018 12:00am August 10, 2018 9:50pm Start: 07-31-2018 End: 08-10-2018 take 1000 mg by mouth twice daily Penicillin V Potassium Discontinued 1000 MG PO Twice daily 24 06July 31, 2018 12:00am August 10, 2018 9:50pm Start: 07-31-2018 End: 08-10-2018 prednisoLONE 30 mg disintegrating oral tablet (20 sources) Corticosteroid Start: 08-17-2018 End: 08-23-2018 Prednisolone Sodium Phosphate (Orapred Odt) 30 mg tablet,disintegrating Discontinued 60 MG PO Once 8 August 17, 2018 12:00am August 23, 2018 5:22pm Start: 08-17-2018 End: 08-23-2018 predniSONE 20 mg oral tablet (20 sources) Start: 09-27-2021 End: 02-06-2022 take 2 tablets by mouth once daily at mealtime Prednisone 20 mg tablet Discontinued 40 MG PO Daily September 27, 2021 12:00am February 06, 2022 11:25am administer with food or milk Start: 09-27-2021 End: 02-06-2022 take 40 mg by mouth once daily at mealtime Prednisone Discontinued 40 MG PO Daily September 27, 2021 12:00am February 06, 2022 11:25am administer with food or milk Prenat.Vits,Noe,Bfa-Qlap-Cqe ic (14 sources) Start: 02-06-2022 End: 03-08-2022 take 1 tablet by mouth once daily Prenat.Vits,Noe,Dvl-Kfwo-Eohjt Discontinued 1 TAB PO Daily 60 February 06, 2022 12:00am March 08, 2022 7:15pm Start: 02-06-2022 End: 03-08-2022 take 1 tablet by mouth once daily Prenat.Vits,Noe,Mch-Tpuv-Tkbeb Discontin ued 1 TAB PO Daily 60 February 06, 2022 1:00am March 08, 2022 8:15pm Prenat.Vits,Noe,Pvz-Qqcb-Niy ic tablet (2 sources) Start: 02-06-2022 End: 03-08-2022 take 1 tablet by mouth once daily Prenat.Vits,Noe,Thb-Pxgz-Iskih tablet Discontinued 1 TAB PO Daily 60 February 06, 2022 1:00am March 08, 2022 8:15pm Start: 02-06-2022 End: 03-08-2022 take 1 tablet by mouth once daily Prenat.Vits,Noe,Ntm-Wssr-Lsseq tablet Discontinued 1 TAB PO Daily 60 February 06, 2022 12:00am March 08, 2022 7:15pm Vit No.331-Ukaz-Tfqru ( Vitamin) 27 mg iron- 800 mcg tablet (16 sources) Start: 06-08-2022 End: 08-18-2022 take 1 tablet by mouth once daily Vit No.809-Vwfs-Djprc ( Vitamin) 27 mg iron- 800 mcg tablet Discontinued 1 TAB PO Daily June 07, 2022 11:00pm August 18, 2022 11:33am Start: 06-08-2022 End: 08-18-2022 take 1 tablet by mouth once daily Vit No.508-Grrh-Ccamz ( Vitamin) 27 mg iron- 800 mcg tablet Discontinued 1 TAB PO Daily June 08, 2022 12:00am August 18, 2022 12:33pm Start: 06-08-2022 take 1 tablet by kathe th once daily Vit No.522-Ccqc-Fsqcv ( Vitamin) 27 mg iron- 800 mcg tablet Active 1 TAB PO Daily June 08, 2022 12:00am prochlorperazine 10 mg oral tablet (20 sources) Phenothiazine Start: 07-19-2021 End: 08-20-2021 take 1 tablet by mouth three times daily as needed for nausea and vomiting Prochlorperazine Maleate (Compazine) 10 mg tablet Discontinued 10 MG PO Three times daily as needed for nausea and vomiting July 19, 2021 12:00am August 20, 2021 11:38am riboflavin 100 mg oral tablet (20 sources) Start: 10-05-2017 End: 10-16-2018 Riboflavin (Vitamin B2) (Vitamin B-2) 100 mg Tablet Discontinued 400 MG PO Daily October 05, 2017 1:00am October 16, 2018 4:09pm riboflavin 5'-phosphate 1.46 mg/ml ophthalmic solution (20 sources) Start: 10-03-2017 End: 10-05-2017 Vitamin B2 In 20 % Dextran 0.146 % Drops, Viscous Discontinued 0.146 MG Daily October 03, 2017 1:00am October 05, 2017 10:46pm Start: 10-03-2017 End: 10-05-2017 Vitamin B2 In 20 % Dextran D iscontinued 0.146 MG Daily October 03, 2017 1:00am October 05, 2017 10:46pm Start: 10-03-2017 End: 10-05-2017 sertraline 25 mg oral tablet (20 sources) Serotonin Reuptake Inhibitor Start: 01-12-2021 End: 08-20-2021 take 2 tablets by mouth once daily Sertraline 25 mg tablet Discontinued 50 MG PO Daily January 12, 2021 1:00am August 20, 2021 11:37am Start: 01-12-2021 End: 08-20-2021 take 50 mg by mouth once daily Sertraline Discontinued 50 MG PO Daily January 12, 2021 1:00am August 20, 2021 11:37am sucralfate 1000 mg oral tablet (20 sources) Aluminum Complex Start: 12-31-2022 End: 01-06-2023 take 1 tablet by mouth twice daily as needed Sucralfate (Carafate) 1 gram tablet Discontinued 1 GM PO Twice daily as needed for abdominal discomfort 14 December 31, 2022 2:04pm January 06, [...] (20 sources) Start: 07-19-2021 End: 09-05-2021 take 1 tablet by mouth once daily Topiramate 50 mg tablet Discontinued 50 MG PO Daily July 19, 2021 12:00am September 05, 2021 11:25pm traZODone hydrochloride 100 mg oral tablet (20 sources) Serotonin Reuptake Inhibitor Start: 05-25-2023 End: 10-28-2024 take 1 tablet by mouth once daily as needed for sleep Trazodone 100 mg tablet Discontinued 100 MG PO Daily as needed for Sleep May 25, 2023 12:00am October 28, 2024 10:59pm Start: 06-08-2022 End: 08-19-2022 take 1 tablet by mouth once daily at bedtime as needed Trazodone 50 mg tablet Discontinued 50 MG PO Daily at bedtime as needed for Insomnia June 08, 2022 12:00am August 19, 2022 8:05pm Triamcinolone (3 sources) Corticosteroid Start: 04-13-2018 KENALOG [...] accident, initial encounter] 11-19-2019 Episodic Esophageal disorders (13 sources) Beverley-Cotton tear; 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] [...] 10-05-2017 Episodic Genitourinary symptoms and ill-defined conditions (16 sources) Dysuria; Translations: [Dysuria] 06-02-2019 Episodic Headache, [...] Onset: 4 02-09-2022 Episodic Other complications of (3 sources) Vomiting of , unspecified; Translations: [Nausea and vomiting during ] 02-09-2022 Episodic Other connective tissue disease (12 sources) Muscle pain; Translations: [Myalgia, unspecified site] 12-31-2022 Episodic Other disorders of stomach and duodenum (18 sources) Nonulcer dyspepsia; 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] 08-22-2022 [...] [PROC AND TX NOT CARRIED OUT PT OT RSN] Onset: 3 Episodic Residual codes; unclassified [...] / K92.0(ICD-10) Onset: 7 Unclassified (1 source) 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-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 (NSAID) / [...] Translations: [CONTACT W/AND (SUSP) EXPOS COVID-19] Onset: Viral infection (20 sources) Viral disease; Translations: [Viral infection, unspecified] 08-17-2018 Episodic Past or Other Problems Problem Classification Problem Date Documented Da te Episodic/Chronic Nonspecific chest pain (17 sources) Chest pain; Translations: [Chest pain, unspecified] Onset: 08-03-2024 01-06-2023 Episodic Spondylosis; intervertebral disc disorders; other back problems (1 source) Dorsalgia, unspecified; Translations: [Dorsalgia, unspecified] Onset: 08-25-2017 Episodic Unclassified (1 source) Vomiting, unspecified; Translations: [Vomiting, unspecified] Onset: 08-25-2017 Unclassified (1 source) Tachycardia, unspecified; Translations: [Tachycardia, unspecified] Onset: 08-25-2017 Urinary tract infections (20 sources) Urinary tract infectious disease; Translations: [Urinary tract infection, site not specified] Onset: 10-28-2024 12-23-2017 Episodic Results Test Name Value Interpretation Reference Range Facility Urine Cultureon 05-04-2025 Bacteria identified Cx Nom (U) No Growth 1 Day PERFORMED BY: [facility] [place] [address] PATHOLOGIST STUDENT TEACHING COORDINATOR FRAN NUNEZ M.D. Normal [facility] Comment on above: Performed By: #### C UU #### [facility] [address] [id number] [facility] Urine Cultureon 01-23-2025 Bacteria identified Cx Nom (U) >100,000 colonies/ml mixed bacterial skin contaminants 2 Days PERFORMED BY: [address] [place] [address] PATHOLOGIST STUDENT TEACHING COORDINATOR IDANIA GODOY M.D. Normal [facility] Comment on above: Performed By: #### C UU #### [facility] [address] [place] [address] CT Abdomen/Pelvis w/ Contras ton 01-17-2025 CT [...] Dolan MD Transcribed by: KIRA Technologist: FABIÁN Edmond [facility] CT Chest w/ Contraston 01-17 CT Chest [...] Signed by: Anselmo Dolan MD Transcribed by: DP Technologist: [facility] CT Head or Brain w/o Contras [...] Anselmo Dolan MD Transcribed by: KIRA Technologist: [facility] CT Spine Cervical w/o Ebonya ston 01-17-2025 CT Spine Cervical w/o Contrast [...] Dolan MD Transcribed by: KIRA Technologist: FABIÁN Edmond [facility] ED Note-Physicianon 01-17-20 ED Note-Physician ED Note-Physician Basic Information Time [...] and Complexity of Problems Differential Diagnosis: [] [facility] Data External documents reviewed: [] My [...] day(s), # 21 tab(s), Refills(s) 0, Pharmacy: [facility]/pharmacy #[id number], 157, cm, 01/16/25 17:56:00 [...] food, # 20 tab(s), Refills(s) 0, Pharmacy: [facility]/pharmacy #[id number], 157, cm, 01/16/25 17:56:00 EST, Height/Length Dosing, 95, kg, 01/16/25 17:56:00 EST, Weight Dosing promethazine, 12.5 mg = 0.5 tab(s), Tab, Oral, Once, Stop date 01/16/25 19:41:00 EST, STAT, Start date 01/16/25 19:41:00 EST, 01/16/25 19:41:00 EST promethazine, 12.5 mg = 1 tab(s), Oral, q6hr, PRN for nausea/vomiting, # 10 tab(s), Refills(s) 0, Pharmacy: [facility]/pharmacy #[id number], 157, cm, 01/16/25 17:56:00 EST, Height/Length Dosing, 95, kg, 01/16/25 17:56:00 EST, Weight Dosing ABO/Rh ABO/Rh History Check Antibody Screen Basic Metabolic Panel Beta hCG Qual Blood Bank ID# CBC w/ Auto Diff CT Abdomen/Pelvis w/ Contrast CT Chest w/ Contrast CT Head or Brain w/o Cont (more content not included)... Normal [facility] Comment on above: Result Comment: Elec tronically Signed By: Rashaad Albrecht PA-C\.br\Date and Time Signed: 01/16/25 22:30 EST\.br\Electronically Co-Signed By: Ebony Birmingham, August Carbone\.br\Date and Time Co-Signed: 01/17/25 08:51 EST XR [...] DO Transcribed by: KIRA Technologist: DES Edmond [facility] XR Knee Complete 4+ Views Leidy tubbs 01-17-2025 XR Knee Complete 4+ Views Right [...] DO Transcribed by: KIRA Technologist: DES Normal [facility] ABO/Rhon 01-16-2025 ABO/Rh Positive Invalid Interpretation Code [facility] Comment on above: Performed By: #### [id number] #### [facility] [address] [place] [address] ABO/Rh History Checkon 01-16 ABO/Rh History Check Verified Hx Blood Type Normal [facility] Comment on above: Performed By: #### 1 [id number] #### [facility] [address] [place] [address] ABSCon 01-16-2025 ABSC Gel Interp Negative Normal [facility] Comment on above: Performed By: #### 1 [id number] #### [facility] [address] [place] [address] B hCG Qualon 01-16-2025 Beta HCG ( test) Ql Negative Normal [facility] Comment on above: Performed By: #### 2 [id number] #### [facility] [address] [place] [address] BLOOD BANKOrdered By: Ti Mccain on 01-16-2025 ABO/Rh Interp Positive Invalid Interpretation Code [facility] BB Subsection ABSC Gel Interp Negative (01/16/25 7:26 PM) Normal [facility] BB Subsection BMPon 01-16-2025 Anion gap [Moles/Vol] 20 mmol/L High 6-[address] [facility] Comment on above: Performed By: #### 2 [id number] #### [facility] [address] [place] [address] Calcium [Mass/Vol] 10.9 mg/dL Normal 8.9-11.1 [facility] Comment on above: Performed By: #### 2 [id number] #### [facility] [address] [place] [address] Chloride [Moles/Vol] 101 mmol/L Normal 101-111 [facility] Comment on above: Performed By: #### 2 [id number] #### [facility] [address] [place] [address] CO2 [Moles/Vol] 22 mmol/L Normal 21-31 [facility] Comment on above: Performed By: #### 2 [id number] #### [facility] [address] [place] [address] Creatinine [Mass/Vol] 0.9 mg/dL Normal 0.5-1.[address] [facility] Comment on above: Performed By: #### 2 [id number] #### [facility] [address] [place] [address] Glucose [Mass/Vol] 116 mg/dL Normal 55-199 [facility] Comment on above: Performed By: #### 2 [id number] #### [facility] [address] [place] [address] Potassium [Moles/Vol] 3.3 mmol/L Low 3.5-5.[address] [facility] Comment on above: Performed By: #### 2 [id number] #### [facility] [address] [place] [address] Sodium [Moles/Vol] 140 mmol/L Normal 135-145 [facility] Comment on above: Performed By: #### 2 [id number] #### [facility] [address] [place] [address] Urea nitrogen [Mass/Vol] 23 mg/dL High 5-21 [facility] Comment on above: Performed By: #### 2 [id number] #### [facility] [address] [place] [address] Urea nitrogen/Creatinine [Mass ratio] 26 No Units High 10-20 [facility] Comment on above: Performed By: #### 2 [id number] #### [facility] [address] [place] [address] Blood Bank ID#on 01-16-2025 BBID# [id number] Invalid Interpretation Code [facility] Comment on above: Performed By: #### 1 [id number] #### [facility] [address] [place] [address] CBC w/ Auto Diffon 5 Basophils/100 WBC (Bld) 0.3 % Normal 0.0-2.0 [facility] Comment on above: Performed By: #### 2 [id number] #### [facility] [address] [place] [address] Basophils/Leukocytes Auto (Bld) [Pure # fraction] 0.0 E9/L Normal 0.0-0.2 [facility] Comment on above: Performed By: #### 2 [id number] #### [facility] [address] [place] [address] Eosinophils (Bld) [#/Vol] 0.0 E9/L Normal 0.0-0.5 [facility] Comment on above: Performed By: #### 2 [id number] #### [facility] [address] [place] [address] Eosinophils/100 WBC (Bld) 0.0 % Normal 0.0-8.0 [facility] Comment on above: Performed By: #### 2 [id number] #### [facility] [address] [place] [address] Erythrocyte distribution width (RBC) [Ratio] 13.7 % Normal 10.9-14.2 [facility] Comment on above: Performed By: #### 2 [id number] #### [facility] [address] [place] [address] Hematocrit (Bld) [Volume fraction] 46.9 % High 34.0-46.0 [facility] Comment on above: Performed By: #### 2 [id number] #### [facility] [address] [place] [address] Hemoglobin (Bld) [Mass/Vol] 16.0 g/dL Normal 12.0-16.0 [facility] Comment on above: Performed By: #### 2 [id number] #### [facility] [address] [place] [address] Lymphocytes (Bld) [#/Vol] 1.4 E9/L Normal 1.0-4.0 [facility] Comment on above: Performed By: #### 2 [id number] #### [facility] [address] [place] [address] Lymphocytes/100 WBC (Bld) 11.6 % Low 14.0-50.0 [facility] Comment on above: Performed By: #### 2 [id number] #### [facility] [address] [place] [address] MCH (RBC) [Entitic mass] 28.8 pg Normal 27.0-34.0 [facility] Comment on above: Performed By: #### 2 [id number] #### [facility] [address] [place] [address] MCHC (RBC) [Mass/Vol] 34.1 g/dL Normal 31.4-36.[address] [facility] Comment on above: Performed By: #### 2 [id number] #### [facility] [address] [place] [address] MCV (RBC) [Entitic vol] 84.3 fL Normal 80.0-100.0 [facility] [facility] Comment on above: Performed By: #### 2 [id number] #### [facility] [address] [place] [address] Monocytes (Bld) [#/Vol] 0.6 E9/L Normal 0.2-1.0 [facility] Comment on above: Performed By: #### 2 [id number] #### [facility] [address] [place] [address] Neutrophils (Bld) [#/Vol] 10.0 E9/L High 2.0-7.5 [facility] Comment on above: Performed By: #### 2 [id number] #### [facility] [address] [place] [address] Neutrophils/100 WBC (Bld) 83.4 % High 36.0-75.0 [facility] Comment on above: Performed By: #### 2 [id number] #### [facility] [address] [place] [address] Platelet mean volume (Bld) [Entitic vol] 8.9 fL Normal 6.4-10.8 [facility] Comment on above: Performed By: #### 2 [id number] #### [facility] [address] [place] [address] Platelets (Bld) [#/Vol] 300.0 E9/L Normal 150.0-500. 0 [facility] Comment on above: Performed By: #### 2 [id number] #### [facility] [address] [place] [address] RBC (Bld) [#/Vol] 5.6 E12/L Normal 4.3-5.9 [facility] Comment on above: Performed By: #### 2 [id number] #### [facility] [address] [place] [address] WBC corrected for nucl RBC Auto (Bld) [#/Vol] 12.0 E9/L High 4.0-11.0 [facility] Comment on above: Performed By: #### 2 [id number] #### [facility] [address] [place] [address] CHEMISTRYOrdered By: SYSTEM SYSTEM on 01-16-2025 Albumin [...] 23.1 s Low 25.1 - 36.5 second(s) [facility] Comment on above: Interpretive Data: [...] the same coagulation reagent and instrumentation as [facility]. Currently there are no coagulation studies available worldwide for children to 14 days, and no normal ranges. Heparin therapeutic range (represented by Anti-Factor Xa activity of 0.2 - 0.4 U/mL) corresponds to PTT of 56.6 - 109.0 sec. INR Coag (PPP) [Relative time] 1.10 {INR} Invalid Interpretation Code [facility] Comment on above: Interpretive Data: I NR results are specifically intended to assess patients stabilized on long-term Anticoagulation therapy suggested INR s Less Intensive Anticoagulation 2.0 3.0 Conventional Range 3.0 4.5 PT Coag (PPP) [Time] 12.3 s Normal 9.4 - 1 2.5 second(s) [facility] Comment on above: Interpretive Data: [...] the same coagulation reagent and instrumentation as [facility]. Currently there are no coagulation studies available worldwide for children to 14 days, and no normal ranges. ED Clinical Summaryon 2024 ED Clinical Summary ED Clinical Summary [address] [address] ED Clinical Summary Person Information [facility]: [facility] Age[facility] 19 Years : 2005 Sex: Female Language: [place] PCP: MODESTA CHAND CNP Marital Status: Single [...] 01/16/2025 20:36:16 01/16/2025 20:36:16 01/16/2025 20:36:16 ADDRESS: [address] [facility] [id number] PHYS DOC NOTES: MEDICAL INFORMATION: Prescriptions Given: New Medications [id number], [address], [place] [id number], [phone] cyclobenzaprine (cyclobenzaprine 5 mg Tab) 1 Tablets By Mouth 3 times a day for 7 Days. Refills: 0. Medications to Continue Taking That Have Changed [id number], [address], [place] [id number], [phone] START: naproxen (naproxen 500 mg Tab) 1 [...] Contusion; Fall Prevention in the Home, Adult, Ttst-ab-Utlt Follow up: With: Address: When: MODESTA CHAND [address] [place], [place] [phone] Business (1) In 3 days 2025 Comments: Call Dr for diagnosis based follow up DIAGNOSIS: Abdominal contusion; Fall down steps; Knee contusion Normal [facility] ED Patient Summaryon 025 ED Patient Summary ED Patient Summary [address] [address] Patient Discharge Instructions Person Information Name: PILI PARIKH Age: 19 Years Arrival Date: 01/16/2025 17:51:31 Discharge Diagnosis: Abdominal contusion; Fall down steps; Knee contusion Primary Care Physician: MODESTA CHAND CNP Provider Information Primary Provider: August Beck M.D. [employer] Painter:Rashaad Albrecht PA-C The exam and treatment you received in the Emergency Department were for an urgent problem and are not intended as complete care. It is important that you follow up with a doctor, nurse practitioner, or physician???s customer care assistant for ongoing care. If your symptoms [...] Follow-up Instructions: With: Address: When: MODESTA CHAND [address] [place] [phone] Faveous (1) In 3 days 2025 Comments: Call Dr for diagnosis based follow up In the event that this physician does not participate in your insurance network, please consult with your insurance company to find a nearby participating provider. Patient Education Materials: RICE Therapy for Routine Care of Injuries; Contusion; Fall Prevention in the Home, Adult, Erzn-gu-Bkjg A MESSAGE TO ALL PATIENTS REGARDING OPIOIDS PRESCRIPTION OPIOIDS: WHAT YOU NEED TO KNOW Prescription opioids can be used to help relieve chbenjnp-em-ybyjzm pain and are often prescribed following a [...] ??? Visit (more content not included)... Normal [facility] Ethanolon 01-16-2025 Ethanol Lvl <10 Normal <=11 [facility] Comment on above: Performed By: #### 2 [id number] #### [facility] [address] [place] [address] HEMATOLOGYOrdered By: SYSTEM SYSTEM on 01-16-2025 Basophils/100 [...] 01-16-2025 Albumin [Mass/Vol] 5.5 g/dL High 3.3-5.0 [facility] Comment on above: Performed By: #### 2 [id number] #### [facility] [address] [place] [address] Albumin/Globulin (S) [Mass conc ratio] 1.5 Normal 1.1-2.2 [facility] Comment on above: Performed By: #### 2 [id number] #### [facility] [address] [place] [address] ALP [Catalytic activity/Vol] 71 Int._Unit/L Normal 21-98 [facility] Comment on above: Performed By: #### 2 [id number] #### [facility] [address] [place] [address] ALT No additional P-5'-P [Catalytic activity/Vol] 42 Int._Unit/L Normal 6-46 [facility] Comment on above: Performed By: #### 2 [id number] #### [facility] [address] [place] [address] AST [Catalytic activity/Vol] 19 Int._Unit/L Normal 5-43 [facility] Comment on above: Performed By: #### 2 [id number] #### [facility] [address] [place] [address] Bilirubin [Mass/Vol] 1.0 mg/dL Normal 0.0-1.1 [facility] Comment on above: Performed By: #### 2 [id number] #### [facility] [address] [place] [address] Bilirubin.direct [Mass/Vol] 0.2 mg/dL Normal 0.0-0.4 [facility] Comment on above: Performed By: #### 2 [id number] #### [facility] [address] [place] [address] Bilirubin.indirect [Mass or moles/Vol] 0.8 mg/dL Normal 0.1-0.9 [facility] Comment on above: Performed By: #### 2 [id number] #### [facility] [address] [place] [address] Globulin (S) [Mass/Vol] 3.6 g/dL Normal 1.4-4.0 [facility] Comment on above: Performed By: #### 2 [id number] #### [facility] [address] [place] [address] Protein [Mass/Vol] 9.1 g/dL High 6.0-7.8 [facility] Comment on above: Performed By: #### 2 [id number] #### [facility] [address] [place] [address] Lactic Acidon 01-16-2025 Lactic Acid Lvl 1.6 mmol/L Normal 0.5-2.2 [facility] Comment on above: Performed By: #### 2 [id number] #### [facility] [address] [place] [address] Lipase Levelon 01-16-2025 Lipase [Catalytic activity/Vol] 8 U/L Low 13-58 [facility] Comment on above: Performed By: #### 2 146805 #### [facility] [address] [place] [address] PT & PTTon 01-16-2025 aPTT Coag (PPP) [Time] 23.1 second(s) Low 25.1-36.5 [facility] Comment on above: Result Comment: Para meter [...] the same coagulation reagent and instrumentation as [facility]. Currently there are no coagulation studies available worldwide for children to 14 days, and no normal ranges. Heparin therapeutic range (represented by Anti-Factor Xa activity of 0.2 - 0.4 U/mL) corresponds to PTT of 56.6 - 109.0 sec. Performed By: #### 1 [id number] #### [facility] [address] [place] [address] INR Coag (PPP) [Relative time] 1.10 {INR} Invalid Interpretation Code [facility] Comment on above: Result Comment: INR results are specifically intended to assess patients stabilized on long-term Anticoagulation therapy suggested INR???s ???Less Intensive Anticoagulation??? 2.0 ??? 3.0 Conventional Range 3.0 ??? 4.5 Performed By: #### 1 [id number] #### [facility] [address] [place] [address] PT Coag (PPP) [Time] 12.3 second(s) Normal 9.4-12.5 [facility] Comment on above: Result Comment: 15 d [...] the same coagulation reagent and instrumentation as [facility]. Currently there are no coagulation studies available worldwide for children to 14 days, and no normal ranges. Performed By: #### 1 [id number] #### [facility] [address] [place] [address] Pre-Arrival Noteon Pre-Arrival Note Pre-Arrival Note Pre-Arrival Summary Name: , ruben Current Date: 01/16/2025 17:51:59 EST Gender: Female Date of : Age: 19 Pre-Arrival Type: EMS ETA: 01/16/2025 18:12:00 EST Primary Care Physician: Presenting Problem: fall Pre-Arrival User: Referring Source: Location: Completion Date/Time: 01/16/2025 17:42:00 [facility] Emergency Department Pre-Hospital Report Form Vital Signs: Pre-Hospital Report: Treatment in Route: Response to Treatment: Misc. Issues: Normal [facility] SEROLOGYOrdered By: Ghazal merida on 01-16-2025 Beta HCG ( test) Ql Negative (01/16/25 7:26 PM) Normal [facility] Man Sero Troponinon 01-16-2025 Troponin HS 3.40 pg/mL Low 10.10-27.1 0 [facility] Comment on above: Result Comment: The 95% CI (Confidence Interval) PPV (Positive Predictive Value) for myocardial infarction in females is 38 pg/mL, in males 51 pg/mL. The results should be used in conjunction with clinical conditions of myocardial infarction. (Access High Sensitivity Troponin I Instructions For Use, Sugar Sundar, June 2018) Performed By: #### 2 [id number] #### [facility] [address] [place] [address] eGFRon 01-16-2025 eGFR 93 mL/min/1.73 m2 Normal >=59 [facility] Comment on above: Performed By: #### 1 [id number] #### [facility] [address] [place] [address] Alanine aminotransferase [En zymatic activity/volume] in Serum or PlasmaOrdered By: Rd Brown on 10-28-2024 ALT [Catalytic activity/Vol] Alanine aminotransferase [Enzymatic activity/volume] in Serum or Plasma 752 [facility] Albumin [Mass/volume] in Ser um or Plasma by Bromocresol green (BCG) dye binding methoOrdered By: Rd Brown on 10-28-2024 Albumin BCG dye [Mass/Vol] Albumin [Mass/volume] in Serum or Plasma by Bromocresol green (BCG) dye binding metho 3.5-5.7 [facility] Alkaline phosphatase [Enzyma tic activity/volume] in Serum or PlasmaOrdered By: Rd Brown on 10-28-2024 ALP [Catalytic activity/Vol] Alkaline phosphatase [Enzymatic activity/volume] in Serum or Plasma 34-104 [facility] Amphetamine Screen Ql (U)Ord ered By: Rd Brown on 10-28-2024 Amphetamines Ql (U) Amphetamines screen Negativ e [facility] Appearance of UrineOrdered B y: Rd Brown on 10-28-2024 Appearance (U) Urine appearance Abnormal Clear [facility] Aspartate aminotransferase [ Enzymatic activity/volume] in Serum or PlasmaOrdered By: Rd Brown on 10-28-2024 AST [Catalytic activity/Vol] Aspartate aminotransferase [Enzymatic activity/volume] in Serum or Plasma 1339 [facility] Bacteria [Presence] in Urine by AutomatedOrdered By: Rd Brown on 10-28-2024 Bacteria Auto Ql (U) Bacteria [Presence] in Urine by Automated High None Seen [facility] Barbiturates [Presence] in U rine by Screen methodOrdered By: Rd Brown on 10-28-2024 Barbiturates Screen Ql (U) Barbiturates [Presence] in Urine by Screen method Negative [facility] Basic Metabolic Panelon Anion gap [Moles/Vol] 19.5 mmol/L High 6.0-15.0 [facility] Comment on above: Performed By: #### C UU #### [address] Calcium [Mass/Vol] 10.4 mg/dL High 8.6-10.3 [facility] Comment on above: Performed By: #### C UU #### [address] Chloride [Moles/Vol] 94 mmol/L Low 98-107 [facility] Comment on above: Performed By: #### C UU #### [address] CO2 [Moles/Vol] 26.3 mmol/L Normal 21.0-31.0 [facility] Comment on above: Performed By: #### C UU #### [address] Creatinine [Mass/Vol] 0.91 mg/dL Normal 0.60-1.20 [facility] Comment on above: Performed By: #### C UU #### [place] [address] [place] Creatinine Clr Calc Pharmacy 104.62 Normal [facility] Comment on above: Performed By: #### C UU #### [place] [address] [place] GFR/1.73 sq M.predicted MDRD (S/P/Bld) [Vol rate/Area] mL/min/{1.73_m2} Normal [facility] Comment on above: Performed By: #### C UU #### [address] Glucose [Mass/Vol] 91 mg/dL Normal 70-100 [facility] Comment on above: Result Comment: [place] Glucose Reference Range is dependent on time and content of last meal. Glucose of more than 200 mg/dL in a nonstressed, ambulatory subject supports the diagnosis of Diabetes Mellitus. ADA recommended reference range Performed By: #### C UU #### [address] Potassium [Moles/Vol] 2.8 mmol/L Off scale low 3.5-5.1 [facility] Comment on above: Result Comment: Crit ical Result Called to and read back by: MATT BUSH at: 10/28/2024 19:29:56 by:[id number] Performed By: #### C UU #### [facility] [address] Sodium [Moles/Vol] 137 mmol/L Normal 136-145 [facility] Comment on above: Performed By: #### C UU #### [facility] [address] Urea nitrogen [Mass/Vol] 21 mg/dL Normal 7-25 [facility] Comment on above: Performed By: #### C UU #### [facility] [address] [place] [address] Basophils Auto (Bld) [#/Vol] Ordered By: Rd Brown on 10-28-2024 Basophils (Bld) [#/Vol] Automated basophil count 0.0-0.2 [facility] Basophils/100 WBC Auto (Bld) Ordered By: Rd Brown on 10-28-2024 Basophils/100 WBC (Bld) Automated basophil % . [facility] Benzodiazepines Screen Ql (U )Ordered By: Rd Brown on 10-28-2024 Benzodiazepines Ql (U) Benzodiazepines [ Presence] in Urine by Screen method Negative [facility] Benzoylecgonine [Presence] i n Urine by Screen methodOrdered By: Rd Brown on 10-28-2024 Benzoylecgonine Screen Ql (U) Benzoylecgonine [Presence] in Urine by Screen method Negative [facility] Bilirubin Test strip Ql (U)O rdered By: Rd Brown on 10-28-2024 Bilirubin Ql (U) Bilirubin.total [Pre sence] in Urine by Test strip Negative [facility] Bilirubin.direct [Mass/volum e] in Serum or PlasmaOrdered By: Rd Brown on 10-28-2024 Bilirubin.direct [Mass/Vol] Bilirubin.direct [Mass/volume] in Serum or Plasma High 0.03-0.18 [facility] Bilirubin.total [Mass/volume ] in Serum or PlasmaOrdered By: Rd Brown on 10-28-2024 Bilirubin [Mass/Vol] Bilirubin.total [Mass/volume] in Serum or Plasma High 0.3-1.0 [facility] Calcium [Mass/volume] in Ser um or PlasmaOrdered By: Rd Brown on 10-28-2024 Calcium [Mass/Vol] Calcium [Mass/volume ] in Serum or Plasma High 8.6-10.3 [facility] Cannabinoids [Presence] in U rine by Screen methodOrdered By: Rd Brown on 10-28-2024 Cannabinoids Screen Ql (U) Cannabinoids [Presence] in Urine by Screen method High Negative [facility] Comment on above: These are unconfirme d results and should not be used for legal purposes. Drug Cut-Off Concentration: AMPH 1000 ng/mL NIKOLAS 200 ng/mL SHRAVAN 200 ng/mL COCM 300 ng/mL OP 300 ng/mL PCP 25 ng/mL THC 20 ng/mL Carbon dioxide, total [Moles /volume] in Serum or PlasmaOrdered By: Rd Brown on 10-28-2024 CO2 [Moles/Vol] Carbon dioxide, tota l [Moles/volume] in Serum or Plasma 21.0-31.0 [facility] Chloride [Moles/volume] in [place] or PlasmaOrdered By: Rd Brown on 10-28-2024 Chloride [Moles/Vol] Chloride [Moles/vol ume] in Serum or Plasma Low 98-107 [facility] Color Auto (U)Ordered By: Andrew Brown on 10-28-2024 Color (U) Color of Urine by Auto Abnormal [facility] Blood Count Auto Di ffon 10-28-2024 Basophils (Bld) [#/Vol] 0.1 10*3/uL Normal 0.0-0.2 [facility] Comment on above: Result Comment: PERF ORMED BY: [place] [address] PATHOLOGIST STUDENT TEACHING COORDINATOR IDANIA GODOY M.D. Performed By: #### C UU #### [address] Basophils/100 WBC (Bld) 0.7 % Normal . [facility] Comment on above: Performed By: #### C UU #### [address] Eosinophils (Bld) [#/Vol] 0.1 10*3/uL Normal 0.0-0.45 [facility] Comment on above: Performed By: #### C UU #### [address] Eosinophils/100 WBC (Bld) 0.6 % Normal . [facility] Comment on above: Performed By: #### C UU #### [address] Erythrocyte distribution width (RBC) [Ratio] 13.4 % Normal 11.9-15.3 [facility] Comment on above: Performed By: #### C UU #### [address] Hematocrit (Bld) [Volume fraction] 49.2 % High 34.0-46.4 [facility] Comment on above: Performed By: #### C UU #### [address] Hemoglobin (Bld) [Mass/Vol] 16.5 g/dL High 11.8-15.4 [facility] Comment on above: Performed By: #### C UU #### [address] Lymphocytes (Bld) [#/Vol] 2.9 10*3/uL Normal 1.00-4.8 [facility] Comment on above: Performed By: #### C UU #### [address] Lymphocytes/100 WBC (Bld) 14.7 % Normal . [facility] Comment on above: Performed By: #### C UU #### [address] MCH (RBC) [Entitic mass] 28.7 pg Normal 24.7-34.3 [facility] Comment on above: Performed By: #### C UU #### [address] MCV (RBC) [Entitic vol] 85.7 fL Normal 80-100 [facility] Comment on above: Performed By: #### C UU #### [address] Mean Corpuscular HGB Conc 33.5 g/dL Normal 32.0-35.0 [facility] Comment on above: Performed By: #### C UU #### [place] [address] [place] Monocytes (Bld) [#/Vol] 1.2 10*3/uL High 0.0-0.8 [facility] Comment on above: Performed By: #### C UU #### [place] [address] [place] Monocytes/100 WBC (Bld) 16.96 % Normal 0.00-20.00 [facility] Comment on above: Performed By: #### C UU #### [place] [address] [place] Monocytes/100 WBC (Bld) 5.9 % Normal . [facility] Comment on above: Performed By: #### C UU #### [place] [address] [place] Neutrophils (Bld) [#/Vol] 15.5 10*3/uL High 1.8-7.7 [facility] Comment on above: Performed By: #### C UU #### [address] Neutrophils/100 WBC (Bld) 78.1 % Normal . [facility] Comment on above: Performed By: #### C UU #### [address] NRBC% 0.1 /100{WBC} Normal 0-0.5 [facility] Comment on above: Performed By: #### C UU #### [address] Platelet mean volume (Bld) [Entitic vol] 8.4 fL Normal 6.3-10.7 [facility] Comment on above: Performed By: #### C UU #### [place] [address] [place] Platelets (Bld) [#/Vol] 333 10*3/uL Normal 150-450 [facility] Comment on above: Performed By: #### C UU #### [place] [address] [place] RBC (Bld) [#/Vol] 5.74 10*6/uL High 3.60-5.00 [facility] Comment on above: Performed By: #### C UU #### [place] [address] [place] WBC (Bld) [#/Vol] 19.8 10*3/uL High 3.8-11.6 [facility] Comment on above: Performed By: #### C UU #### [address] Creatinine [Mass/volume] in Serum or PlasmaOrdered By: Rd Brown on 10-28-2024 Creatinine [Mass/Vol] Creatinine [Mass/v olume] in Serum or Plasma 0.60-1.20 [facility] Dipstick and Microscopicon 1 12-29-2023 Appearance (U) Turbid Critically abnormal Clear [facility] Comment on above: Order Comment: Name Collection Type:: Clean-Voided Midstream Performed By: #### C UU #### [place] [address] [place] Bacteria,Urine 1+ High None Seen [facility] Comment on above: Order Comment: Name Collection Type:: Clean-Voided Midstream Performed By: #### C UU #### [place] [address] [place] Bilirubin,Urine Negative Normal Negative [facility] Comment on above: Order Comment: Name Collection Type:: Clean-Voided Midstream Performed By: #### C UU #### [address] Color (U) [place] Critically abnormal Yellow [facility] Comment on above: Order Comment: Name Collection Type:: Clean-Voided Midstream Performed By: #### C UU #### [address] Glucose Ql (U) Normal Normal Normal [facility] Comment on above: Order Comment: Name Collection Type:: Clean-Voided Midstream Performed By: #### C UU #### [place] [address] [place] Hyaline Casts,Urine 9 [LPF] High 0-8 [facility] Comment on above: Order Comment: Name Collection Type:: Clean-Voided Midstream Performed By: #### C UU #### [address] Ketones Ql (U) 3+ High Negative [facility] Comment on above: Order Comment: Name Collection Type:: Clean-Voided Midstream Performed By: #### C UU #### [place] [address] [place] Leukocyte esterase Test strip Ql (U) 3+ High Negative [facility] Comment on above: Order Comment: Name Collection Type:: Clean-Voided Midstream Performed By: #### C UU #### [place] [address] [place] Mucus,Urine 4+ Critically abnormal [facility] Comment on above: Order Comment: Name Collection Type:: Clean-Voided Midstream Performed By: #### C UU #### [place] [address] [place] Nitrite,Urine Negative Normal Negative [facility] Comment on above: Order Comment: Name Collection Type:: Clean-Voided Midstream Performed By: #### C UU #### [place] [address] [place] Occult Blood,Urine 3+ High Negative [facility] Comment on above: Order Comment: Name Collection Type:: Clean-Voided Midstream Performed By: #### C UU #### [address] pH (U) 8.0 [pH] Normal 5.0-9.0 [facility] Comment on above: Order Comment: Name Collection Type:: Clean-Voided Midstream Performed By: #### C UU #### [address] Protein (U) [Mass/Vol] 100 mg/dL High Negative [facility] Comment on above: Order Comment: Name Collection Type:: Clean-Voided Midstream Performed By: #### C UU #### [address] RBC,Urine Innumerable High 0-4 [facility] Comment on above: Order Comment: Name Collection Type:: Clean-Voided Midstream Performed By: #### C UU #### [address] Specificy Bellamy,Urine 1.029 Normal 1.001-1.03 0 [facility] Comment on above: Order Comment: Name Collection Type:: Clean-Voided Midstream Performed By: #### C UU #### [address] Squamous Epithelial Cell,Urine 1 [HPF] Normal 0-2 [facility] Comment on above: Order Comment: Name Collection Type:: Clean-Voided Midstream Performed By: #### C UU #### [address] Urobilinogen,Urine 6 mg/dL High Normal [facility] Comment on above: Order Comment: Name Collection Type:: Clean-Voided Midstream Performed By: #### C UU #### [address] WBC,Urine 50 [HPF] High 0-4 [facility] Comment on above: Order Comment: Name Collection Type:: Clean-Voided Midstream Performed By: #### C UU #### [address] Drug Screen,Urineon 10-28-20 24 Amphetamine Screen,Urine Negative Normal Negative [facility] Comment on above: Performed By: #### C UU #### [address] Barbiturate Screen,Urine Negative Normal Negative [facility] Comment on above: Performed By: #### C UU #### [address] Benzodiazepines Screen,Urine Negative Normal Negative [facility] Comment on above: Performed By: #### C UU #### [address] Cannabinoid Screen,Urine Positive High Negative [facility] Comment on above: Result Comment: Thes e are unconfirmed results and should not be used for legal purposes. Drug Cut-Off Concentration: AMPH 1000 ng/mL NIKOLAS 200 ng/mL SHRAVAN 200 ng/mL COCM 300 ng/mL OP 300 ng/mL PCP 25 ng/mL THC 20 ng/mL PERFORMED BY: [place] [address] PATHOLOGIST STUDENT TEACHING COORDINATOR IDANIA GODOY M.D. Performed By: #### C UU #### [address] Cocaine Screen,Urine Negative Normal Negative [facility] Comment on above: Performed By: #### C UU #### [place] [address] [place] Opiate Screen,Urine Negative Normal Negative [facility] Comment on above: Performed By: #### C UU #### [place] [address] [place] Phencyclidine Screen,Urine Negative Normal Negative [facility] Comment on above: Performed By: #### C UU #### [address] ECG 12 lead ECGon 10-28-2024 ECG 12 lead ECG [facility] Main Hernandez [address] [place] [address] Electrocardiograph Report Signed Patient: Pili Parikh MR#: [id number] : 2005 Acct:[id number] Age/Sex: 19 / F ADM Date: 10/28/24 Loc: ER Room: Type: [facility] ER Attending Dr: Ordering Provider: Rd Brown [...] sinus rhythm Confirmed by Robert BOLANOS DO ([id number]) on 10/28/2024 9:48:18 PM Referred By: Electronically Signed By: Robert BOLANOS DO Transcribed By: MUS Signed By Robert Bolanos DO 1 12/29/232147 Normal [facility] Eosinophils Auto (Bld) [#/Vo l]Ordered By: Rd Brown on 10-28-2024 Eosinophils (Bld) [#/Vol] Automated eosinophil count 0.0-0.45 [facility] Eosinophils/100 WBC Auto (Bl d)Ordered By: Rd Brown on 10-28-2024 Eosinophils/100 WBC (Bld) Automated eosinophil % . [facility] Epithelial cells.squamous [# /area] in Urine sediment by Automated countOrdered By: Rd Brown on 10-28-2024 Epithelial cells.squamous Auto (Urine sed) [#/Area] Epithelial cells.squamous [#/area] in Urine sediment by Automated count 0-2 [facility] Erythrocyte distribution wid th Auto (RBC) [Ratio]Ordered By: Rd Brown on 10-28-2024 Erythrocyte distribution width (RBC) [Ratio] Erythrocyte distribution width [Ratio] by Automated count 11.9-15.3 [facility] Erythrocytes [#/area] in Uri ne sediment by Automated countOrdered By: Rd Brown on 10-28-2024 RBC Auto (Urine sed) [#/Area] Erythrocytes [#/area] in Urine sediment by Automated count High 0-4 [facility] Globulin Calc (S) [Mass/Vol] Ordered By: Rd Brown on 10-28-2024 Globulin (S) [Mass/Vol] Serum globulin measurement by calculation (mass/volume) [facility] Glucose [Mass/volume] in Ser um or PlasmaOrdered By: Rd Brown on 10-28-2024 Glucose [Mass/Vol] Glucose [Mass/volume ] in Serum or Plasma 70-100 [facility] Comment on above: ADA recommended refe rence rangeRandom Glucose Reference Range is dependent on time and content of last meal. Glucose of more than 200 mg/dL in a nonstressed, ambulatory subject supports the diagnosis of Diabetes Mellitus. Glucose [Mass/volume] in Uri ne by Test stripOrdered By: Rd Brown on 10-28-2024 Glucose Test strip (U) [Mass/Vol] Glucose [Mass/volume] in Urine by Test strip Normal [facility] HCG ( test) IA.rapi d Ql (U)Ordered By: Rd Brown on 10-28-2024 HCG ( test) Ql (U) Urine human chorionic gonadotropin (hCG) detection by immunoassay [facility] HCG,Urineon 10-28-2024 Beta HCG ( test) Ql (U) Negative Normal [facility] Comment on above: Order Comment: Name Collection Type:: Clean-Voided Midstream Result Comment: PERF ORMED BY: [place] [address] PATHOLOGIST STUDENT TEACHING COORDINATOR IDANIA GODOY M.D. Performed By: #### C UU #### [address] Hematocrit Auto (Bld) [Volum e fraction]Ordered By: Rd Brown on 10-28-2024 Hematocrit (Bld) [Volume fraction] Hematocrit [Volume Fraction] of Blood by Automated count High 34.0-46.4 [facility] Hemoglobin Test strip Ql (U) Ordered By: Rd Brown on 10-28-2024 Hemoglobin Ql (U) Hemoglobin [Presence ] in Urine by Test strip High Negative [facility] Hemoglobin [Mass/volume] in BloodOrdered By: Rd Brown on 10-28-2024 Hemoglobin (Bld) [Mass/Vol] Hemoglobin [Mass/volume] in Blood High 11.8-15.4 [facility] Hepatic Panelon 10-28-2024 Albumin [Mass/Vol] 5.4 g/dL Normal 3.5-5.7 [facility] Comment on above: Performed By: #### C UU #### [address] Albumin/Globulin [Mass ratio] 1.5 {ratio} Normal [facility] Comment on above: Performed By: #### C UU #### [address] ALP [Catalytic activity/Vol] 78 U/L Normal 34-104 [facility] Comment on above: Performed By: #### C UU #### [address] ALT [Catalytic activity/Vol] 48 U/L Normal 7-52 [facility] Comment on above: Performed By: #### C UU #### [address] AST [Catalytic activity/Vol] 30 U/L Normal 13-39 [facility] Comment on above: Performed By: #### C UU #### [address] Bilirubin [Mass/Vol] 1.1 mg/dL High 0.3-1.0 [facility] Comment on above: Performed By: #### C UU #### [place] [address] [place] Bilirubin,Indirect 0.9 mg/dL Normal [facility] Comment on above: Performed By: #### C UU #### [place] [address] [place] Bilirubin.indirect [Mass/Vol] 0.20 mg/dL High 0.03-0.18 [facility] Comment on above: Performed By: #### C UU #### [address] Globulin (S) [Mass/Vol] 3.5 g/dL Normal [facility] Comment on above: Performed By: #### C UU #### [address] Protein [Mass/Vol] 8.9 g/dL Normal 6.4-8.9 [facility] Comment on above: Performed By: #### C UU #### [address] Hyaline casts [#/area] in Ur ine sediment by Automated countOrdered By: Rd Brown on 10-28-2024 Hyaline casts Auto (Urine sed) [#/Area] Hyaline casts [#/area] in Urine sediment by Automated count High 0-8 [facility] Ketones Test strip Ql (U)Ord ered By: Rd Brown on 10-28-2024 Ketones Ql (U) Ketones [Presence] i n Urine by Test strip High Negative [facility] Leukocyte esterase [Presence ] in Urine by Test stripOrdered By: Rd Brown on 10-28-2024 Leukocyte esterase Test strip Ql (U) Leukocyte esterase [Presence] in Urine by Test strip High Negative [facility] Leukocytes [#/area] in Urine sediment by Automated countOrdered By: Rd Brown on 10-28-2024 WBC Auto (Urine sed) [#/Area] Leukocytes [#/area] in Urine sediment by Automated count High 0-4 [facility] Leukocytes [#/volume] correc venkata for nucleated erythrocytes in Blood by Automated counOrdered By: Rd Brown on 10-28-2024 WBC corrected for nucl RBC Auto (Bld) [#/Vol] Leukocytes [#/volume] corrected for nucleated erythrocytes in Blood by Automated coun High 3.8-11.6 [facility] Lipaseon 10-28-2024 Lipase [Catalytic activity/Vol] 19.0 U/L Normal 11.0-82.0 [facility] Comment on above: Result Comment: PERF ORMED BY: [place] [address] PATHOLOGIST STUDENT TEACHING COORDINATOR IDANIA GODOY M.D. Performed By: #### C UU #### [address] Lipase [Enzymatic activity/v olume] in Serum or PlasmaOrdered By: Rd Brown on 10-28-2024 Lipase [Catalytic activity/Vol] Lipase [Enzymatic activity/volume] in Serum or Plasma 11.0-82.0 [facility] Lymphocytes Auto (Bld) [#/Vo l]Ordered By: Rd Brown on 10-28-2024 Lymphocytes (Bld) [#/Vol] Lymphocytes [#/volume] in Blood by Automated count 1.00-4.8 [facility] Lymphocytes/100 WBC Auto (Bl d)Ordered By: Rd Brown on 10-28-2024 Lymphocytes/100 WBC (Bld) Lymphocytes/100 leukocytes in Blood by Automated count . [facility] MCH Auto (RBC) [Entitic mass ]Ordered By: Rd Brown on 10-28-2024 MCH (RBC) [Entitic mass] MCH [Entitic mass] by Automated count 24.7-34.3 [facility] MCHC Auto (RBC) [Mass/Vol]Or dered By: Rd Brown on 10-28-2024 MCHC (RBC) [Mass/Vol] MCHC [Mass/volume] by Automated count 32.0-35.0 [facility] MCV Auto (RBC) [Entitic vol] Ordered By: Rd Brown on 10-28-2024 MCV (RBC) [Entitic vol] MCV [Entitic volume] by Automated count 80-100 [facility] Monocyte distribution width [Entitic volume] in Blood by AutomatedOrdered By: Rd Brown on 10-28-2024 Monocyte distribution width Auto (Bld) [Entitic vol] Monocyte distribution width [Entitic volume] in Blood by Automated 0.00-20.00 [facility] Monocytes Auto (Bld) [#/Vol] Ordered By: Rd Brown on 10-28-2024 Monocytes (Bld) [#/Vol] Automated blood monocyte count High 0.0-0.8 [facility] Monocytes/100 WBC Auto (Bld) Ordered By: Rd Brown on 10-28-2024 Monocytes/100 WBC (Bld) Automated monocyte % . [facility] Mucus [Presence] in Urine by AutomatedOrdered By: Rd Brown on 10-28-2024 Mucus Auto Ql (U) Mucus [Presence] in Urine by Automated Abnormal [facility] Neutrophils Auto (Bld) [#/Vo l]Ordered By: Rd Brown on 10-28-2024 Neutrophils (Bld) [#/Vol] Neutrophils [#/volume] in Blood by Automated count High 1.8-7.7 [facility] Neutrophils/100 WBC Auto (Bl d)Ordered By: Rd Brown on 10-28-2024 Neutrophils/100 WBC (Bld) Automated neutrophil % . [facility] Nitrite Test strip Ql (U)Ord ered By: Rd Brown on 10-28-2024 Nitrite Ql (U) Nitrite [Presence] i n Urine by Test strip Negative [facility] No Panel InformationOrdered By: Rd Brown on 10-28-2024 Estimated GFR (CKD-EPI) > 60.0 mL/Min [facility] Creatinine Clearance (Chem 104.62 [facility] Nucleated erythrocytes [Pres ence] in Blood by Automated countOrdered By: Rd Brown on 10-28-2024 Nucleated RBC Auto Ql (Bld) Nucleated erythrocytes [Presence] in Blood by Automated count 0-0.5 [facility] Opiates [Presence] in Urine by Screen methodOrdered By: Rd Brown on 10-28-2024 Opiates Screen Ql (U) Opiates [Presence] in Urine by Screen method Negative [facility] Phencyclidine Screen Ql (U)O rdered By: Rd Brown on 10-28-2024 Phencyclidine Ql (U) Phencyclidine [Pres ence] in Urine by Screen method Negative [facility] Platelet mean volume Auto (B ld) [Entitic vol]Ordered By: Rd Brown on 10-28-2024 Platelet mean volume (Bld) [Entitic vol] Platelet mean volume [Entitic volume] in Blood by Automated count 6.3-10.7 [facility] Platelets Auto (Bld) [#/Vol] Ordered By: Rd Brown on 10-28-2024 Platelets (Bld) [#/Vol] Platelets [#/volume] in Blood by Automated count 150-450 [facility] Potassiumon 10-28-2024 Potassium [Moles/Vol] 2.9 mmol/L Off scale low 3.5-5.1 [facility] Comment on above: Result Comment: Crit ical Result Called to and read back by: RYLAN BELL at: 10/28/2024 23:09:11 by:MO PERFORMED BY: [place] [address] PATHOLOGIST STUDENT TEACHING COORDINATOR IDANIA GODOY M.D. Performed By: #### C UU #### [address] Potassium [Moles/volume] in Serum or PlasmaOrdered By: Rd Brown on 10-28-2024 Potassium [Moles/Vol] Potassium [Moles/v olume] in Serum or Plasma Critically low 3.5-5.1 [facility] Comment on above: Critical Result Call ed to and read back by: YRLAN BELL at: 10/28/2024 23:09:11 by:MO Protein Test strip (U) [Mass /Vol]Ordered By: Rd Brown on 10-28-2024 Protein (U) [Mass/Vol] Protein [Mass/vol ume] in Urine by Test strip High Negative [facility] Protein [Mass/volume] in Ser um or PlasmaOrdered By: Rd Brown on 10-28-2024 Protein [Mass/Vol] Protein [Mass/volume ] in Serum or Plasma 6.4-8.9 [facility] RBC Auto (Bld) [#/Vol]Ordere d By: Rd Brown on 10-28-2024 RBC (Bld) [#/Vol] Erythrocytes [#/volu me] in Blood by Automated count High 3.60-5.00 [facility] Serum or plasma albumin/glob ulin mass ratioOrdered By: Rd Brown on 10-28-2024 Albumin/Globulin [Mass ratio] Serum or plasma albumin/globulin mass ratio [facility] Serum or plasma anion gap de terminationOrdered By: Rd Brown on 10-28-2024 Anion gap [Moles/Vol] Serum or plasma an ion gap determination High 6.0-15.0 [facility] Serum or plasma non-glucuron idated bilirubin measurement (mass/volume)Ordered By: Rd Brown on 10-28-2024 Bilirubin.indirect [Mass/Vol] Serum or plasma non-glucuronidated bilirubin measurement (mass/volume) [facility] Sodium [Moles/volume] in Ser um or PlasmaOrdered By: Rd Brown on 10-28-2024 Sodium [Moles/Vol] Sodium [Moles/volume ] in Serum or Plasma 136-145 [facility] Specific gravity Test strip (U) [Rel density]Ordered By: Rd Brown on 10-28-2024 Specific gravity (U) [Rel density] Specific gravity of Urine by Test strip 1.001-1.[address] [facility] Urea nitrogen [Mass/volume] in Serum or PlasmaOrdered By: Rd Brown on 10-28-2024 Urea nitrogen [Mass/Vol] Urea nitrogen [Mass/volume] in Serum or Plasma 7-25 [facility] Urine Cultureon 10-28-2024 Bacteria identified Cx Nom (U) 75,000 colonies/ml mixed bacterial skin contaminants 2 Days PERFORMED BY: [place] [id number] PATHOLOGIST STUDENT TEACHING COORDINATOR IDANIA Edmond [facility] Comment on above: Performed By: #### C UU #### [address] Urine cultureOrdered By: Mj Brown on 10-28-2024 Bacteria identified Cx Nom (U) Urine culture [facility] Urobilinogen Test strip (U) [Mass/Vol]Ordered By: Rd Brown on 10-28-2024 Urobilinogen (U) [Mass/Vol] Urobilinogen [Mass/volume] in Urine by Test strip High Normal [facility] WBC Auto (Bld) [#/Vol]Ordere d By: Rd Brown on 10-28-2024 WBC (Bld) [#/Vol] Leukocytes [#/volume ] in Blood by Automated count High 3.8-11.6 [facility] pH Test strip (U)Ordered By: Rd Brown on 10-28-2024 pH (U) pH of Urine by Test strip 5.0-9.0 [facility] Activated partial thrombopla stin time (aPTT) in platelet poor plasma by coagulation aOrdered By: Ania Walter on 08-03-2024 aPTT Coag (PPP) [Time] 24.7 s Low 25.1-36.5 [facility] Comment on above: A hematocrit value g reater than 55% may lead to inaccurate results in coagulation testing. Patients having hematocrit values >55% require a special collection tube for coagulation studies. Please contact the laboratory at [phone] for redraw instructions. BNP ser/plasOrdered By: Reji Watson on 08-03-2024 Natriuretic peptide B (Bld) [Mass/Vol] 19.0 pg/mL Normal 5-100 [facility] Comment on above: Order Comment: PT WA NTS TO WAIT UNTIL SHE IS TAKEN BACK INTO ER AND THEY START A IV ON HER,, 2099 Result Comment: PERF ORMED BY: [address] [address] PATHOLOGIST STUDENT TEACHING COORDINATOR NAY SARKAR M.D. Performed By: #### C K, PT, BNP, PTT, CBC, BMP, HS TROP #### [facility] [address] [place] [address] [facility] Basic Metabolic Panelon 09-0 Creatinine Clr Calc Pharmacy 154.09 Normal [facility] Comment on above: Order Comment: PT WA NTS TO WAIT UNTIL SHE IS TAKEN BACK INTO ER AND THEY START A IV ON HER,, 2099 Result Comment: PERF ORMED BY: [place] [address] PATHOLOGIST STUDENT TEACHING COORDINATOR NAY SARKAR M.D. Performed By: #### C K, PT, BNP, PTT, CBC, BMP, HS TROP #### [facility] [address] [place] [id number] [place] GFR/1.73 sq M.predicted MDRD (S/P/Bld) [Vol rate/Area] mL/min/{1.73_m2} Normal [facility] Comment on above: Order Comment: PT WA NTS TO WAIT UNTIL SHE IS TAKEN BACK INTO ER AND THEY START A IV ON HER,, 2099 Performed By: #### C K, PT, BNP, PTT, CBC, BMP, HS TROP #### [facility] [address] [place] [address] [place] Calcium [Mass/volume] in Ser um or PlasmaOrdered By: Ania Watson on 08-03-2024 Calcium [Mass/Vol] 9.6 mg/dL Normal 8.6-10.3 [facility] Comment on above: Order Comment: PT WA NTS TO WAIT UNTIL SHE IS TAKEN BACK INTO ER AND THEY START A IV ON HER2099 Performed By: #### C K, PT, BNP, PTT, CBC, BMP, HS TROP #### [facility] [address] [place] [id number] [facility] Carbon dioxide, total [Moles /volume] in Serum or PlasmaOrdered By: Ania Watson on 08-03-2024 CO2 [Moles/Vol] 18.5 mmol/L Low 21.0-31.0 [facility] Comment on above: Order Comment: PT WA NTS TO WAIT UNTIL SHE IS TAKEN BACK INTO ER AND THEY START A IV ON HER2099 Performed By: #### C K, PT, BNP, PTT, CBC, BMP, HS TROP #### [facility] [address] [place] [id number] [place] Chloride [Moles/volume] in [place] or PlasmaOrdered By: Ania Watson on 08-03-2024 Chloride [Moles/Vol] 99 mmol/L Normal 98-107 [facility] Comment on above: Order Comment: PT WA NTS TO WAIT UNTIL SHE IS TAKEN BACK INTO ER AND THEY START A IV ON HER2099 Performed By: #### C K, PT, BNP, PTT, CBC, BMP, HS TROP #### [facility] [address] [place] [id number] [facility] Complete Blood Count Auto Di ffon 08-03-2024 Basophils (Bld) [#/Vol] 0.1 10*3/uL Normal 0.0-0.2 [facility] Comment on above: Order Comment: PT WA NTS TO WAIT UNTIL SHE IS TAKEN BACK INTO ER AND THEY START A IV ON HER2099 Result Comment: PERF ORMED BY: [facility] [address] [place] [address] PATHOLOGIST STUDENT TEACHING COORDINATOR NAY SARKAR M.D. Performed By: #### C K, PT, BNP, PTT, CBC, BMP, HS TROP #### [address] Basophils/100 WBC (Bld) 0.4 % Normal . [facility] Comment on above: Order Comment: PT WA NTS TO WAIT UNTIL SHE IS TAKEN BACK INTO ER AND THEY START A IV ON HER,, 2099 Performed By: #### C K, PT, BNP, PTT, CBC, BMP, HS TROP #### [address] Eosinophils (Bld) [#/Vol] 0.2 10*3/uL Normal 0.0-0.45 [facility] Comment on above: Order Comment: PT WA NTS TO WAIT UNTIL SHE IS TAKEN BACK INTO ER AND THEY START A IV ON HER,2099 Performed By: #### C K, PT, BNP, PTT, CBC, BMP, HS TROP #### [address] Eosinophils/100 WBC (Bld) 0.9 % Normal . [facility] Comment on above: Order Comment: PT WA NTS TO WAIT UNTIL SHE IS TAKEN BACK INTO ER AND THEY START A IV ON HER,, 2099 Performed By: #### C K, PT, BNP, PTT, CBC, BMP, HS TROP #### [address] Erythrocyte distribution width (RBC) [Ratio] 13.2 % Normal 11.9-15.3 [facility] Comment on above: Order Comment: PT WA NTS TO WAIT UNTIL SHE IS TAKEN BACK INTO ER AND THEY START A IV ON HER,, 2099 Performed By: #### C K, PT, BNP, PTT, CBC, BMP, HS TROP #### [address] Hematocrit (Bld) [Volume fraction] 43.6 % Normal 34.0-46.4 [facility] Comment on above: Order Comment: PT WA NTS TO WAIT UNTIL SHE IS TAKEN BACK INTO ER AND THEY START A IV ON HER,2099 Performed By: #### C K, PT, BNP, PTT, CBC, BMP, HS TROP #### [address] Hemoglobin (Bld) [Mass/Vol] 14.8 g/dL Normal 11.8-15.4 [facility] Comment on above: Order Comment: PT WA NTS TO WAIT UNTIL SHE IS TAKEN BACK INTO ER AND THEY START A IV ON HER,2099 Performed By: #### C K, PT, BNP, PTT, CBC, BMP, HS TROP #### [address] Lymphocytes (Bld) [#/Vol] 2.5 10*3/uL Normal 1.00-4.8 [facility] Comment on above: Order Comment: PT WA NTS TO WAIT UNTIL SHE IS TAKEN BACK INTO ER AND THEY START A IV ON HER,2099 Performed By: #### C K, PT, BNP, PTT, CBC, BMP, HS TROP #### [address] Lymphocytes/100 WBC (Bld) 13.0 % Normal . [facility] Comment on above: Order Comment: PT WA NTS TO WAIT UNTIL SHE IS TAKEN BACK INTO ER AND THEY START A IV ON HER,2099 Performed By: #### C K, PT, BNP, PTT, CBC, BMP, HS TROP #### [address] MCH (RBC) [Entitic mass] 28.4 pg Normal 24.7-34.3 [facility] Comment on above: Order Comment: PT WA NTS TO WAIT UNTIL SHE IS TAKEN BACK INTO ER AND THEY START A IV ON HER,2099 Performed By: #### C K, PT, BNP, PTT, CBC, BMP, HS TROP #### [place] [id number] [facility] MCV (RBC) [Entitic vol] 83.8 fL Normal 80-100 [facility] Comment on above: Order Comment: PT WA NTS TO WAIT UNTIL SHE IS TAKEN BACK INTO ER AND THEY START A IV ON HER,2099 Performed By: #### C K, PT, BNP, PTT, CBC, BMP, HS TROP #### [address] Mean Corpuscular HGB Conc 33.9 g/dL Normal 32.0-35.0 [facility] Comment on above: Order Comment: PT WA NTS TO WAIT UNTIL SHE IS TAKEN BACK INTO ER AND THEY START A IV ON HER,, 2099 Performed By: #### C K, PT, BNP, PTT, CBC, BMP, HS TROP #### [address] Monocytes (Bld) [#/Vol] 1.6 10*3/uL High 0.0-0.8 [facility] Comment on above: Order Comment: PT WA NTS TO WAIT UNTIL SHE IS TAKEN BACK INTO ER AND THEY START A IV ON HER,, 2099 Performed By: #### C K, PT, BNP, PTT, CBC, BMP, HS TROP #### [address] Monocytes/100 WBC (Bld) 18.96 % Normal 0.00-20.00 [facility] Comment on above: Order Comment: PT WA NTS TO WAIT UNTIL SHE IS TAKEN BACK INTO ER AND THEY START A IV ON HER,, 2099 Performed By: #### C K, PT, BNP, PTT, CBC, BMP, HS TROP #### [place] [address] [place] Monocytes/100 WBC (Bld) 8.1 % Normal . [facility] Comment on above: Order Comment: PT WA NTS TO WAIT UNTIL SHE IS TAKEN BACK INTO ER AND THEY START A IV ON HER,, 2099 Performed By: #### C K, PT, BNP, PTT, CBC, BMP, HS TROP #### [place] [address] [place] Neutrophils (Bld) [#/Vol] 15.0 10*3/uL High 1.8-7.7 [facility] Comment on above: Order Comment: PT WA NTS TO WAIT UNTIL SHE IS TAKEN BACK INTO ER AND THEY START A IV ON HER,2099 Performed By: #### C K, PT, BNP, PTT, CBC, BMP, HS TROP #### [address] Neutrophils/100 WBC (Bld) 77.6 % Normal . [facility] Comment on above: Order Comment: PT WA NTS TO WAIT UNTIL SHE IS TAKEN BACK INTO ER AND THEY START A IV ON HER,2099 Performed By: #### C K, PT, BNP, PTT, CBC, BMP, HS TROP #### [facility] [address] NRBC% 0.3 /100{WBC} Normal 0-0.5 [facility] Comment on above: Order Comment: PT WA NTS TO WAIT UNTIL SHE IS TAKEN BACK INTO ER AND THEY START A IV ON HER,2099 Performed By: #### C K, PT, BNP, PTT, CBC, BMP, HS TROP #### [address] Platelet mean volume (Bld) [Entitic vol] 8.6 fL Normal 6.3-10.7 [facility] Comment on above: Order Comment: PT WA NTS TO WAIT UNTIL SHE IS TAKEN BACK INTO ER AND THEY START A IV ON HER,2099 Performed By: #### C K, PT, BNP, PTT, CBC, BMP, HS TROP #### [address] Platelets (Bld) [#/Vol] 282 10*3/uL Normal 150-450 [facility] Comment on above: Order Comment: PT WA NTS TO WAIT UNTIL SHE IS TAKEN BACK INTO ER AND THEY START A IV ON HER,2099 Performed By: #### C K, PT, BNP, PTT, CBC, BMP, HS TROP #### [place] [address] [place] RBC (Bld) [#/Vol] 5.20 10*6/uL High 3.60-5.00 [facility] Comment on above: Order Comment: PT WA NTS TO WAIT UNTIL SHE IS TAKEN BACK INTO ER AND THEY START A IV ON HER,2099 Performed By: #### C K, PT, BNP, PTT, CBC, BMP, HS TROP #### [facility] [address] [place] [address] [place] WBC (Bld) [#/Vol] 19.4 10*3/uL High 3.8-11.6 [facility] Comment on above: Order Comment: PT WA NTS TO WAIT UNTIL SHE IS TAKEN BACK INTO ER AND THEY START A IV ON HER,2099 Performed By: #### C K, PT, BNP, PTT, CBC, BMP, HS TROP #### [facility] [address] [place] [id number] [facility] Creatine kinase [Enzymatic a ctivity/volume] in Serum or PlasmaOrdered By: Ania Watson on 08-03-2024 CK [Catalytic activity/Vol] 33 U/L Normal 30-223 [facility] Comment on above: Order Comment: PT WA NTS TO WAIT UNTIL SHE IS TAKEN BACK INTO ER AND THEY START A IV ON HER,2099 Performed By: #### C K, PT, BNP, PTT, CBC, BMP, HS TROP #### [facility] [address] [place] [id number] [facility] Creatinine [Mass/volume] in Serum or PlasmaOrdered By: Ania Watson on 08-03-2024 Creatinine [Mass/Vol] 0.61 mg/dL Normal 0.60-1.20 [facility] Comment on above: Order Comment: PT WA NTS TO WAIT UNTIL SHE IS TAKEN BACK INTO ER AND THEY START A IV ON HER,2099 Performed By: #### C K, PT, BNP, PTT, CBC, BMP, HS TROP #### [facility] [address] [place] [id number] [place] ECG 12 lead ECGon 08-03-2024 ECG 12 lead ECG [facility] Main Hernandez [address] [place] [address] Electrocardiograph Report Signed Patient: Pili Parikh MR#: [id number] : 2005 Acct:[id number] Age/Sex: 19 / F ADM Date: 08/03/24 Loc: ER Room: Type: [facility] ER Attending Dr: Ordering Provider: [...] wave abnormality Confirmed by Ania Watson MD ([id number]) on 08/04/2024 1:34:37 AM Referred By: Electronically Signed By: Ania Watson MD Transcribed By: MUS Signed By Ania Watson MD 06/20 0134 Normal [facility] Glucose [Mass/volume] in Ser um or PlasmaOrdered By: Ania Watson on 08-03-2024 Glucose [Mass/Vol] 91 mg/dL Normal 70-100 [facility] Comment on above: ADA recommended refe rence rangeRandom Glucose Reference Range is dependent on time and content of last meal. Glucose of more than 200 mg/dL in a nonstressed, ambulatory subject supports the diagnosis of Diabetes Mellitus. Order Comment: PT WA NTS TO WAIT UNTIL SHE IS TAKEN BACK INTO ER AND THEY START A IV ON HER,, 2099 Result Comment: [place] om Glucose Reference Range is dependent on time and content of last meal. Glucose of more than 200 mg/dL in a nonstressed, ambulatory subject supports the diagnosis of Diabetes Mellitus. ADA recommended reference range Performed By: #### C K, PT, BNP, PTT, CBC, BMP, HS TROP #### [facility] [address] INR in Platelet poor plasma by Coagulation assayOrdered By: Ania Watson on 08-03-2024 INR Coag (PPP) [Relative time] 1.2 {INR} Normal [facility] Comment on above: INR Therapeutic Rang [...] A IV ON HER,, 2099 Result Comment: INR Therapeutic Range A) Pre- [...] PTT, CBC, BMP, HS TROP #### [facility] [address] [place] [id number] [facility] No Panel InformationOrdered By: Ania Watson on 08-03-2024 Estimated GFR (CKD-EPI) > 60.0 mL/Min [facility] Creatinine Clearance (Chem 154.09 [facility] Partial Thromboplastin Timeo n 08-03-2024 aPTT Coag (Bld) [Time] 24.7 s Low 25.1-36.5 [facility] Comment on above: Order Comment: PT WA NTS TO WAIT UNTIL SHE IS TAKEN BACK INTO ER AND THEY START A IV ON HER,, 2099 Result Comment: A he matocrit value greater than 55% may lead to inaccurate results in coagulation testing. Patients having hematocrit values >55% require a special collection tube for coagulation studies. Please contact the laboratory at [phone] for redraw instructions. PERFORMED BY: [address] [place] [id number] PATHOLOGIST STUDENT TEACHING COORDINATOR NAY SARKAR M.D. Performed By: #### C K, PT, BNP, PTT, CBC, BMP, HS TROP #### [facility] [address] Potassium [Moles/volume] in Serum or PlasmaOrdered By: Ania Watson on 08-03-2024 Potassium [Moles/Vol] 3.5 mmol/L Normal 3.5-5.1 [facility] Comment on above: Hemolysis is present at a level that could interfere with the result.Contact lab if redraw is required Order Comment: PT WA NTS TO WAIT UNTIL SHE IS TAKEN BACK INTO ER AND THEY START A IV ON HER,KAH, 2100 Result Comment: Hemo lysis is present at a level that could interfere with the result. Contact lab if redraw is required Performed By: #### C K, PT, BNP, PTT, CBC, BMP, HS TROP #### [facility] [address] Prothrombin time (PT)Ordered By: Ania Watson on 08-03-2024 PT Coag (PPP) [Time] 13.3 s High 9.0-12.9 [facility] Comment on above: A hematocrit value g reater than 55% may lead to inaccurate results in coagulation testing. Patients having hematocrit values >55% require a special collection tube for coagulation studies. Please contact the laboratory at [phone] for redraw instructions. Order Comment: PT WA NTS TO WAIT UNTIL SHE IS TAKEN BACK INTO ER AND THEY START A IV ON HER2099 Result Comment: A he matocrit value greater than 55% may lead to inaccurate results in coagulation testing. Patients having hematocrit values >55% require a special collection tube for coagulation studies. Please contact the laboratory at [phone] for redraw instructions. Performed By: #### C K, PT, BNP, PTT, CBC, BMP, HS TROP #### [facility] [address] [place] [id number] [facility] Serum or plasma anion gap de terminationOrdered By: Ania Watson on 08-03-2024 Anion gap [Moles/Vol] 20.0 mmol/L High 6.0-15.0 [facility] Comment on above: Order Comment: PT WA NTS TO WAIT UNTIL SHE IS TAKEN BACK INTO ER AND THEY START A IV ON HER2099 Performed By: #### C K, PT, BNP, PTT, CBC, BMP, HS TROP #### [facility] [address] Sodium [Moles/volume] in Ser um or PlasmaOrdered By: Ania Watson on 08-03-2024 Sodium [Moles/Vol] 134 mmol/L Low 136-145 [facility] Comment on above: Order Comment: PT WA NTS TO WAIT UNTIL SHE IS TAKEN BACK INTO ER AND THEY START A IV ON HER2099 Performed By: #### C K, PT, BNP, PTT, CBC, BMP, HS TROP #### [facility] [address] Troponin I High Sensitivityo n 08-03-2024 Troponin I High Sensitivity 7.0 pg/mL Normal 0.0-15.0 [facility] Comment on above: Order Comment: PT WA NTS TO WAIT UNTIL SHE IS TAKEN BACK INTO ER AND THEY START A IV ON HER2099 Result Comment: PERF ORMED BY: [place] [address] PATHOLOGIST STUDENT TEACHING COORDINATOR NAY SARKAR M.D. Performed By: #### C K, PT, BNP, PTT, CBC, BMP, HS TROP #### [facility] [address] [place] [address] [facility] Troponin I.cardiac [Mass/vol ume] in Serum or Plasma by Detection limit <= 0.01 ng/Ordered By: Ania Watson on 08-03-2024 Troponin I.cardiac DL <= 0.01 ng/mL [Mass/Vol] 7.0 pg/mL 0.0-15.0 [facility] Urea nitrogen [Mass/volume] in Serum or PlasmaOrdered By: Ania Watson on 08-03-2024 Urea nitrogen [Mass/Vol] 20 mg/dL Normal 7-25 [facility] Comment on above: Order Comment: PT WA NTS TO WAIT UNTIL SHE IS TAKEN BACK INTO ER AND THEY START A IV ON HER2099 Performed By: #### C K, PT, BNP, PTT, CBC, BMP, HS TROP #### [facility] [address] [place] [address] [place] B hCG Qualon 08-01-2024 Beta HCG ( test) Ql Negative Normal [facility] Comment on above: Performed By: #### 2 [id number] #### [facility] [address] [place] [address] BMPon 08-01-2024 Anion gap [Moles/Vol] 14 mmol/L Normal 6-[address] [facility] Comment on above: Performed By: #### 2 [id number] #### [facility] [address] [place] [address] Calcium [Mass/Vol] 9.7 mg/dL Normal 8.9-11.1 [facility] Comment on above: Performed By: #### 2 [id number] #### [facility] [address] [place] [address] Chloride [Moles/Vol] 102 mmol/L Normal 101-111 [facility] Comment on above: Performed By: #### 2 [id number] #### [facility] [address] [place] [address] CO2 [Moles/Vol] 24 mmol/L Normal 21-31 [facility] Comment on above: Performed By: #### 2 [id number] #### [facility] [address] [place] [address] Creatinine [Mass/Vol] 0.7 mg/dL Normal 0.5-1.[address] [facility] Comment on above: Performed By: #### 2 144189 #### [facility] [address] [place] [address] Glucose [Mass/Vol] 96 mg/dL Normal 55-199 [facility] Comment on above: Performed By: #### 2 186383 #### [facility] [address] [place] [address] Potassium [Moles/Vol] 3.3 mmol/L Low 3.5-5.[address] [facility] Comment on above: Performed By: #### 2 724200 #### [facility] [address] [place] [address] Sodium [Moles/Vol] 137 mmol/L Normal 135-145 [facility] Comment on above: Performed By: #### 2 660299 #### [facility] [address] [place] [address] Urea nitrogen [Mass/Vol] 18 mg/dL Normal 5-21 [facility] Comment on above: Performed By: #### 2 [id number] #### [facility] [address] [place] [address] Urea nitrogen/Creatinine [Mass ratio] 26 No Units High 10-20 [facility] Comment on above: Performed By: #### 2 159344 #### [facility] [address] [place] [address] CBC w/ Auto Diffon 4 Basophils/100 WBC (Bld) 0.3 % Normal 0.0-2.0 [facility] Comment on above: Performed By: #### 2 [id number] #### [facility] [address] [place] [address] Basophils/Leukocytes Auto (Bld) [Pure # fraction] 0.1 E9/L Normal 0.0-0.2 [facility] Comment on above: Performed By: #### 2 455952 #### [facility] [address] [place] [address] Eosinophils (Bld) [#/Vol] 0.1 E9/L Normal 0.0-0.5 [facility] Comment on above: Performed By: #### 2 277381 #### [facility] [address] [place] [address] Eosinophils/100 WBC (Bld) 0.4 % Normal 0.0-8.0 [facility] Comment on above: Performed By: #### 2 764230 #### [facility] [address] [place] [address] Erythrocyte distribution width (RBC) [Ratio] 13.3 % Normal 10.9-14.2 [facility] Comment on above: Performed By: #### 2 [id number] #### [facility] [address] [place] [address] Hematocrit (Bld) [Volume fraction] 43.9 % Normal 34.0-46.0 [facility] Comment on above: Performed By: #### 2 172430 #### [facility] [address] [place] [address] Hemoglobin (Bld) [Mass/Vol] 14.5 g/dL Normal 12.0-16.0 [facility] Comment on above: Performed By: #### 2 719465 #### [facility] [address] [place] [address] Lymphocytes (Bld) [#/Vol] 2.3 E9/L Normal 1.0-4.0 [facility] Comment on above: Performed By: #### 2 362173 #### [facility] [address] [place] [address] Lymphocytes/100 WBC (Bld) 13.7 % Low 14.0-50.0 [facility] Comment on above: Performed By: #### 2 989156 #### [facility] [address] [place] [address] MCH (RBC) [Entitic mass] 28.3 pg Normal 27.0-34.0 [facility] Comment on above: Performed By: #### 2 741229 #### [facility] [address] [place] [address] MCHC (RBC) [Mass/Vol] 33.0 g/dL Normal 31.4-36.[address] [facility] Comment on above: Performed By: #### 2 [id number] #### [facility] [address] [place] [address] MCV (RBC) [Entitic vol] 85.8 fL Normal 80.0-100.0 [facility] Comment on above: Performed By: #### 2 252968 #### [facility] [address] [place] [address] Monocytes (Bld) [#/Vol] 1.2 E9/L High 0.2-1.0 [facility] Comment on above: Performed By: #### 2 037861 #### [facility] [address] [place] [address] Neutrophils (Bld) [#/Vol] 13.1 E9/L High 2.0-7.5 [facility] Comment on above: Performed By: #### 2 016609 #### [facility] [address] [place] [address] Neutrophils/100 WBC (Bld) 78.5 % High 36.0-75.0 [facility] Comment on above: Performed By: #### 2 791091 #### [facility] [address] [place] [address] Platelet mean volume (Bld) [Entitic vol] 8.2 fL Normal 6.4-10.8 [facility] Comment on above: Performed By: #### 2 [id number] #### [facility] [address] [place] [address] Platelets (Bld) [#/Vol] 246.0 E9/L Normal 150.0-500. 0 [facility] Comment on above: Performed By: #### 2 206617 #### [facility] [address] [place] [address] RBC (Bld) [#/Vol] 5.1 E12/L Normal 4.3-5.9 [facility] Comment on above: Performed By: #### 2 634375 #### [facility] [address] [place], [place] [address] WBC corrected for nucl RBC Auto (Bld) [#/Vol] 16.7 E9/L High 4.0-11.0 [facility] Comment on above: Result Comment: Sarahi pheral smear review performed. Performed By: #### 2 294027 #### [facility] [address] [place] [address] ED Clinical Summaryon 2023 ED Clinical Summary ED Clinical Summary [address] [address] ED Clinical Summary Person Information Name: PILI PARIKH [facility] Age: 19 Years : 2005 Sex: Female Language: [place] PCP: MODESTA CHAND CNP Marital Status: Single [...] 08/01/2024 12:09:48 08/01/2024 12:09:48 ADDRESS: [address] [facility] [id number] PHYS DOC NOTES: MEDICAL INFORMATION: Prescriptions Given: New Medications [id number], [address], [place] [id number], [phone] potassium chloride (potassium chloride 20 mEq ER [...] Follow up: With: Address: When: MODESTA CHAND [address] [place] [address] [phone] Faveous (1) In 3 days 08/04/2024 Comments: Make sure to fill the prescriptions that was prescribed from [facility]. Fill the new prescription for potassium. Follow-up with your primary doctor as discussed. Return to the emergency room if your vomiting recurs, abdominal pain recurs or any new symptoms. DIAGNOSIS: 1:Vomiting and diarrhea; 2:Hypokalemia; 3:Leukocytosis; Diarrhea, unspecified Normal [facility] ED Note-Physicianon 08-01-20 ED Note-Physician ED Note-Physician Basic Information Time Seen: August Beck M.D. 08/01/2024 09:27 Chief Complaint just left [facility], seen multiple times for n/v lightheaded. hx cyclic vomiting, state its not that. has medication at [facility] but wanted to come here [...] any sick contact. The patient was at [facility] and they did send medication to [facility] however she feels she is [...] and Complexity of Problems Differential Diagnosis: [] [facility] Data External documents reviewed: [] My [...] day(s), # 4 tab(s), Refills(s) 0, Pharmacy: [facility] #[id number], 157, cm, 08/01/24 9:34:00 [...] Disposition Dis (more content not included)... Normal [facility] Comment on above: Result Comment: Elec tronically Signed By: August Beck M.D.\.tamika\Date and Time Signed: 08/01/24 11:58 EDT ED Patient Summaryon ED Patient Summary ED Patient Summary [place] [id number] Patient Discharge Instructions Person Information Name: PILI PARIKH Age: 19 Years Arrival Date: 08/01/2024 09:23:00 Discharge Diagnosis: 1:Vomiting and diarrhea; 2:Hypokalemia; 3:Leukocytosis; Diarrhea, unspecified Primary Care Physician: MODESTA CHAND CNP Provider Information Primary Provider: August Beck M.D. Advanced Auto Customize Painter:None The exam and treatment you received in the Emergency Department were for an urgent problem and are not intended as complete care. It is important that you follow up with a doctor, nurse practitioner, or physician?s customer care assistant for ongoing care. If your symptoms [...] Follow-up Instructions: With: Address: When: MODESTA CHAND [address] [place] [id number] [phone] Business (1) In 3 days 08/04/2024 Comments: Make sure to fill the prescriptions that was prescribed from [facility]. Fill the new prescription for potassium. Follow-up [...] opioids can be used to help relieve canuzudm-cb-ffwkna pain and are often prescribed following a [...] the to (more content not included)... Normal [facility] Hep Func Panelon 08-01-2024 Albumin [Mass/Vol] 5.1 g/dL High 3.3-5.0 [facility] Comment on above: Performed By: #### 2 [id number] #### [facility] [address] [place] [address] Albumin/Globulin (S) [Mass conc ratio] 1.7 Normal 1.1-2.2 [facility] Comment on above: Performed By: #### 2 [id number] #### [facility] [address] [place] [address] ALP [Catalytic activity/Vol] 75 Int._Unit/L Normal 21-98 [facility] Comment on above: Performed By: #### 2 [id number] #### [facility] [address] [place] [address] ALT No additional P-5'-P [Catalytic activity/Vol] 45 Int._Unit/L Normal 6-46 [facility] Comment on above: Performed By: #### 2 104115 #### [facility] [address] [place] [address] AST [Catalytic activity/Vol] 25 Int._Unit/L Normal 5-43 [facility] Comment on above: Performed By: #### 2 [id number] #### [facility] [address] [place] [address] Bilirubin [Mass/Vol] 0.9 mg/dL Normal 0.0-1.1 [facility] Comment on above: Performed By: #### 2 324407 #### [facility] [address] [place] [address] Bilirubin.direct [Mass/Vol] 0.1 mg/dL Normal 0.0-0.4 [facility] Comment on above: Performed By: #### 2 566250 #### [facility] [address] [place] [address] Bilirubin.indirect [Mass or moles/Vol] 0.8 mg/dL Normal 0.1-0.9 [facility] Comment on above: Performed By: #### 2 922440 #### [facility] [address] [place] [address] Globulin (S) [Mass/Vol] 3.0 g/dL Normal 1.4-4.0 [facility] Comment on above: Performed By: #### 2 043731 #### [facility] [address] [place] [address] Protein [Mass/Vol] 8.1 g/dL High 6.0-7.8 [facility] Comment on above: Performed By: #### 2 315275 #### [facility] [address] [place] [address] Lipase Levelon 08-01-2024 Lipase [Catalytic activity/Vol] 27 U/L Normal 13-58 [facility] Comment on above: Performed By: #### 2 460213 #### [facility] [address] [place] [address] Magnesiumon 08-01-2024 Magnesium [Mass/Vol] 2.2 mg/dL Normal 1.3-2.4 [facility] Comment on above: Performed By: #### 2 592275 #### [facility] [address] [place] [address] PT & PTTon 08-01-2024 aPTT Coag (PPP) [Time] 31.2 second(s) Normal 25.1-36.5 [facility] Comment on above: Result Comment: Para meter [...] the same coagulation reagent and instrumentation as [facility]. Currently there are no coagulation studies available worldwide for children to 14 days, and no normal ranges. Heparin therapeutic range (represented by Anti-Factor Xa activity of 0.2 - 0.4 U/mL) corresponds to PTT of 56.6 - 109.0 sec. Performed By: #### 1 [id number] #### [facility] [address] [place] [address] INR Coag (PPP) [Relative time] 1.11 {INR} Invalid Interpretation Code [facility] Comment on above: Result Comment: INR results are specifically intended to assess patients stabilized on long-term Anticoagulation therapy suggested INR?s ?Less Intensive Anticoagulation? 2.0 ? 3.0 Conventional Range 3.0 ? 4.5 Performed By: #### 1 [id number] #### [facility] [address] [place] [address] PT Coag (PPP) [Time] 12.5 second(s) Normal 9.4-12.5 [facility] Comment on above: Result Comment: 15 d [...] the same coagulation reagent and instrumentation as [facility]. Currently there are no coagulation studies available worldwide for children to 14 days, and no normal ranges. Performed By: #### 1 [id number] #### [facility] [address] [place] [address] Troponin 0 Hr.on 08-01-2024 Troponin HS 5.20 pg/mL Low 10.10-27.1 0 [facility] Comment on above: Result Comment: The 95% CI (Confidence Interval) PPV (Positive Predictive Value) for myocardial infarction in females is 38 pg/mL, in males 51 pg/mL. The results should be used in conjunction with clinical conditions of myocardial infarction. (Access High Sensitivity Troponin I Instructions For Use, [place], June 2018) Performed By: #### 1 [id number] #### [facility] [address] [place] [address] eGFRon 08-01-2024 eGFR 126 mL/min/1.73 m2 Normal >=59 [facility] Comment on above: Order Comment: Order added by Discern Expert. Performed By: #### 1 [id number] #### [facility] [address] [place] [address] BMPon 07-30-2024 Anion gap [Moles/Vol] 13 mmol/L Normal 6-[address] [facility] Comment on above: Performed By: #### 2 [id number] #### [facility] [address] [place] [address] Calcium [Mass/Vol] 9.4 mg/dL Normal 8.9-11.1 [facility] Comment on above: Performed By: #### 2 [id number] #### [facility] [address] [place] [address] Chloride [Moles/Vol] 107 mmol/L Normal 101-111 [facility] Comment on above: Performed By: #### 2 [id number] #### [facility] [address] [place] [address] CO2 [Moles/Vol] 25 mmol/L Normal 21-31 [facility] Comment on above: Performed By: #### 2 [id number] #### [facility] [address] [place] [address] Creatinine [Mass/Vol] 0.8 mg/dL Normal 0.5-1.[address] [facility] Comment on above: Performed By: #### 2 [id number] #### [facility] [address] [place] [address] Glucose [Mass/Vol] 89 mg/dL Normal 55-199 [facility] Comment on above: Performed By: #### 2 895214 #### [facility] [address] [place] [address] Potassium [Moles/Vol] 3.6 mmol/L Normal 3.5-5.[address] [facility] Comment on above: Performed By: #### 2 118755 #### [facility] [address] [place] [address] Sodium [Moles/Vol] 141 mmol/L Normal 135-145 [facility] Comment on above: Performed By: #### 2 476117 #### [facility] [address] [place] [address] Urea nitrogen [Mass/Vol] 19 mg/dL Normal 5-21 [facility] Comment on above: Performed By: #### 2 119513 #### [facility] [address] [place] [address] Urea nitrogen/Creatinine [Mass ratio] 24 No Units High 10-20 [facility] Comment on above: Performed By: #### 2 247705 #### [facility] [address] [place] [address] CBC w/ Auto Diffon 4 Basophils/100 WBC (Bld) 0.4 % Normal 0.0-2.0 [facility] Comment on above: Performed By: #### 2 386058 #### [facility] [address] [place] [address] Basophils/Leukocytes Auto (Bld) [Pure # fraction] 0.1 E9/L Normal 0.0-0.2 [facility] Comment on above: Performed By: #### 2 157003 #### [facility] [address] [place] [address] Eosinophils (Bld) [#/Vol] 0.1 E9/L Normal 0.0-0.5 [facility] Comment on above: Performed By: #### 2 898134 #### [facility] [address] [place] [address] Eosinophils/100 WBC (Bld) 0.5 % Normal 0.0-8.0 [facility] Comment on above: Performed By: #### 2 435696 #### [facility] [address] [place] [address] Erythrocyte distribution width (RBC) [Ratio] 13.2 % Normal 10.9-14.2 [facility] Comment on above: Performed By: #### 2 534986 #### [facility] [address] [place] [address] Hematocrit (Bld) [Volume fraction] 39.6 % Normal 34.0-46.0 [facility] Comment on above: Performed By: #### 2 750253 #### [facility] [address] [place] [address] Hemoglobin (Bld) [Mass/Vol] 13.7 g/dL Normal 12.0-16.0 [facility] Comment on above: Performed By: #### 2 850851 #### [facility] [address] [place] [address] Lymphocytes (Bld) [#/Vol] 2.3 E9/L Normal 1.0-4.0 [facility] Comment on above: Performed By: #### 2 349722 #### [facility] [address] [place] [address] Lymphocytes/100 WBC (Bld) 14.1 % Normal 14.0-50.0 [facility] Comment on above: Performed By: #### 2 831801 #### [facility] [address] [place] [address] MCH (RBC) [Entitic mass] 29.4 pg Normal 27.0-34.0 [facility] Comment on above: Performed By: #### 2 939544 #### [facility] [address] [place] [address] MCHC (RBC) [Mass/Vol] 34.5 g/dL Normal 31.4-36.[address] [facility] Comment on above: Performed By: #### 2 867888 #### [facility] [address] [place] [address] MCV (RBC) [Entitic vol] 85.3 fL Normal 80.0-100.0 [facility] Comment on above: Performed By: #### 2 796222 #### [facility] [address] [place] [address] Monocytes (Bld) [#/Vol] 1.2 E9/L High 0.2-1.0 [facility] Comment on above: Performed By: #### 2 357828 #### [facility] [address] [place] [address] Neutrophils (Bld) [#/Vol] 12.6 E9/L High 2.0-7.5 [facility] Comment on above: Performed By: #### 2 346040 #### [facility] [address] [place] [address] Neutrophils/100 WBC (Bld) 77.5 % High 36.0-75.0 [facility] Comment on above: Performed By: #### 2 575315 #### [facility] [address] [place] [address] Platelet 260.0 E9/L Normal 150.0-500. 0 [facility] Comment on above: Performed By: #### 2 192680 #### [facility] [address] [place] [address] Platelet mean volume (Bld) [Entitic vol] 8.1 fL Normal 6.4-10.8 [facility] Comment on above: Performed By: #### 2 287681 #### [facility] [address] [place] [address] RBC (Bld) [#/Vol] 4.7 E12/L Normal 4.3-5.9 [facility] Comment on above: Performed By: #### 2 164365 #### [facility] [address] [place] [address] WBC corrected for nucl RBC Auto (Bld) [#/Vol] 16.2 E9/L High 4.0-11.0 [facility] Comment on above: Performed By: #### 2 814739 #### [facility] [address] [place] [address] CHEMISTRYOrdered By: Manish carpio on 07-30-2024 Albumin [...] 2023 ED Clinical Summary ED Clinical Summary [place] [id number] ED Clinical Summary Person Information [facility]: [facility] Age[facility] 19 Years : 2005 Sex: Female Language: [place] PCP: MODESTA ARCHIBALD Marital Status: Single Visit [...] 07/30/2024 22:55:49 07/30/2024 22:55:49 07/30/2024 22:55:49 ADDRESS: [address] [facility] [id number] PHYS DOC NOTES: MEDICAL INFORMATION: Prescriptions Given: New Medications [id number], [address], [place] [id number], [phone] ondansetron (Zofran ODT 4 mg Tab-Dis) 1 Tablets By Mouth every 8 hours as needed Nausea/Vomiting. Refills: 0. Medications to Continue Taking That Have Changed [id number], [address], [place] [id number], [phone] START: promethazine (Phenergan 12.5 mg Supp) 1 [...] Follow up: With: Address: When: FAMILIA CHAND [facility] [address] [address] Business (1) In 3 days 08/02/2024 DIAGNOSIS: AP (abdominal pain); N&V (nausea and vomiting) Normal [facility] ED Note-Physicianon 07-30-20 ED Note-Physician ED Note-Physician [...] and Complexity of Problems Differential Diagnosis: [] [facility] Data External documents reviewed: N/A My [...] Nausea/Vomiting, # 16 tab(s), Refills(s) 0, Pharmacy: [id number], 157, cm, 07/30/24 19:37:00 EDT, Height/Length Dosing, 96.1, kg, 07/30/24 19:37:00 EDT, Weight Dosing promethazine, 12.5 mg = 1 tab(s), Oral, q8hr, PRN as needed for nausea/vomiting, second line, # 10 tab(s), Refills(s) 0, Pharmacy: [id number], 157, cm, 07/30/24 19:37:00 EDT, Height/Length Dosing, 96.1, kg, 07/30/24 19:37:00 EDT, Weight Dosing promethazine, 12.5 mg = 1 supp, Rectal, q8hr, PRN as needed for nausea/vomiting, 3rd line, # 6 EA, Refills(s) 0, Pharmacy: [facility]/pharmacy #[id number], 157, cm, 07/30/24 19:37:00 [...] Level Saline Lock Insert Medications Administered Given [id number] [F] 1000 mg + GenDil 100 mL, IV Piggyback famotidine 10 mg/mL IV Lisa, 20 mg, IV Push NS 1000 ml Bolus, 1000 mL, IV [id number] [F] 12.5 mg + Sodium Chloride 0.9% IV Lisa 50 mL [F] 50 mL, IV Piggyback Disposition Plan Discharge Prescription List Prescriptions Phenergan 12.5 mg Supp, 12.5 mg= 1 supp, Rectal, q8hr, PRN promethazine 12.5 mg oral tablet, 12.5 mg= 1 tab(s), Oral, q8hr, PRN Zofran ODT 4 mg Tab-Dis, 4 mg= 1 tab(s), Or (more content not included)... Normal [facility] Comment on above: Result Comment: Elec tronically Signed By: Dustin Villalobos DO\.br\Date and Time Signed: 07/30/24 22:50 EDT ED Patient Summaryon 024 ED Patient Summary ED Patient Summary [place] [id number] Patient Discharge Instructions Person Information Name: PILI PARIKH Age: 19 Years Arrival Date: 07/30/2024 19:26:13 Discharge Diagnosis: AP (abdominal pain); N&V (nausea and vomiting) Primary Care Physician: MODESTA ARCHIBALD Provider Information Primary Provider: Dustin Villalobos DO [employer] Custom[employer] Painter:None The exam and treatment you received in the Emergency Department were for an urgent problem and are not intended as complete care. It is important that you follow up with a doctor, nurse practitioner, or physician?s customer care assistant for ongoing care. If your symptoms [...] Follow-up Instructions: With: Address: When: FAMILIA CHAND Saima [address] [address] Business (1) In 3 days 08/02/2024 In the event that this physician does not participate in your insurance network, please consult with your insurance company to find a nearby participating provider. Patient Education Materials: Nausea and Vomiting, Adult A MESSAGE TO ALL PATIENTS REGARDING OPIOIDS PRESCRIPTION OPIOIDS: WHAT YOU NEED TO KNOW Prescription opioids can be used to help relieve srjjqlvw-ua-sbmmgv pain and are often prescribed following a [...] be struggling with addiction, tell your health manager care and ask for guidance or call [facility] [place] [employer] (more content not included)... Normal [facility] HEMATOLOGYOrdered By: SYSTEM SYSTEM on 07-30-2024 Basophils/100 [...] 07-30-2024 Albumin [Mass/Vol] 4.7 g/dL Normal 3.3-5.0 [facility] Comment on above: Performed By: #### 2 [id number] #### [facility] [address] [place] [address] Albumin/Globulin (S) [Mass conc ratio] 1.7 Normal 1.1-2.2 [facility] Comment on above: Performed By: #### 2 083550 #### [facility] [address] [place] [address] ALP [Catalytic activity/Vol] 73 Int._Unit/L Normal 21-98 [facility] Comment on above: Performed By: #### 2 963686 #### [facility] [address] [place] [address] ALT No additional P-5'-P [Catalytic activity/Vol] 46 Int._Unit/L Normal 6-46 [facility] Comment on above: Performed By: #### 2 582475 #### [facility] [address] [place] [address] AST [Catalytic activity/Vol] 24 Int._Unit/L Normal 5-43 [facility] Comment on above: Performed By: #### 2 828877 #### [facility] [address] [place] [address] Bilirubin [Mass/Vol] 0.7 mg/dL Normal 0.0-1.1 [facility] Comment on above: Performed By: #### 2 794511 #### [facility] [address] [place] [address] Bilirubin.direct [Mass/Vol] 0.1 mg/dL Normal 0.0-0.4 [facility] Comment on above: Performed By: #### 2 047541 #### [facility] [address] [place] [address] Bilirubin.indirect [Mass or moles/Vol] 0.6 mg/dL Normal 0.1-0.9 [facility] Comment on above: Performed By: #### 2 049065 #### [facility] [address] [place] [address] Globulin (S) [Mass/Vol] 2.8 g/dL Normal 1.4-4.0 [facility] Comment on above: Performed By: #### 2 [id number] #### [facility] [address] [place] [address] Protein [Mass/Vol] 7.5 g/dL Normal 6.0-7.8 [facility] Comment on above: Performed By: #### 2 553507 #### [facility] [address] [place] [address] Lipase Levelon 07-30-2024 Lipase [Catalytic activity/Vol] 10 U/L Low 13-58 [facility] Comment on above: Performed By: #### 2 435314 #### [facility] [address] [place] [address] Magnesiumon 07-30-2024 Magnesium [Mass/Vol] 2.2 mg/dL Normal 1.3-2.4 [facility] Comment on above: Performed By: #### 2 586988 #### [facility] [address] [place] [address] eGFRon 07-30-2024 eGFR 108 mL/min/1.73 m2 Normal >=59 [facility] Comment on above: Order Comment: Order added by Discern Expert. Performed By: #### 1 [id number] #### [facility] [address] [place] [address] Alanine aminotransferase [En zymatic activity/volume] in Serum or PlasmaOrdered By: Femi Benitez on 03-18-2024 ALT [Catalytic activity/Vol] 25 U/L 7-52 [facility] Albumin [Mass/volume] in Ser um or Plasma by Bromocresol green (BCG) dye binding methoOrdered By: Femi Benitez on 03-18-2024 Albumin BCG dye [Mass/Vol] 5.3 g/dL 3.5-5.7 [facility] Alkaline phosphatase [Enzyma tic activity/volume] in Serum or PlasmaOrdered By: Femi Benitez on 03-18-2024 ALP [Catalytic activity/Vol] 82 U/L 34-104 [facility] Aspartate aminotransferase [ Enzymatic activity/volume] in Serum or PlasmaOrdered By: Femi Benitez on 03-18-2024 AST [Catalytic activity/Vol] 23 U/L 13-39 [facility] Basophils Auto (Bld) [#/Vol] Ordered By: Femi Benitez on 03-18-2024 Basophils (Bld) [#/Vol] 0.1 10*3/uL 0.0-0.2 [facility] Basophils/100 WBC Auto (Bld) Ordered By: Femi Benitez on 03-18-2024 Basophils/100 WBC (Bld) 0.4 % . [facility] Bilirubin.total [Mass/volume ] in Serum or PlasmaOrdered By: Femi Benitez on 03-18-2024 Bilirubin [Mass/Vol] 0.9 mg/dL 0.3-1.0 [facility] Calcium [Mass/volume] in Ser um or PlasmaOrdered By: Femi Benitez on 03-18-2024 Calcium [Mass/Vol] 10.4 mg/dL 8.6-10.3 [facility] Carbon dioxide, total [Moles /volume] in Serum or PlasmaOrdered By: Femi Benitez on 03-18-2024 CO2 [Moles/Vol] 18.4 mmol/L 21.0-31.0 [facility] Chloride [Moles/volume] in S [place] or PlasmaOrdered By: Femi Benitez on 03-18-2024 Chloride [Moles/Vol] 94 mmol/L 98-107 [facility] Choriogonadotropin.beta subu nit [Units/volume] in Serum or PlasmaOrdered By: Femi Benitez on 03-18-2024 HCG.beta subunit Qn Negative [facility] Creatinine [Mass/volume] in Serum or PlasmaOrdered By: Femi Benitez on 03-18-2024 Creatinine [Mass/Vol] 0.80 mg/dL 0.60-1.20 [facility] Eosinophils Auto (Bld) [#/Vo l]Ordered By: Femi Benitez on 03-18-2024 Eosinophils (Bld) [#/Vol] 0.4 10*3/uL 0.0-0.45 [facility] Eosinophils/100 WBC Auto (Bl d)Ordered By: Femi Benitez on 03-18-2024 Eosinophils/100 WBC (Bld) 2.3 % . [facility] Erythrocyte distribution wid th Auto (RBC) [Ratio]Ordered By: Femi Benitez on 03-18-2024 Erythrocyte distribution width (RBC) [Ratio] 14.3 % 11.9-15.3 [facility] Globulin Calc (S) [Mass/Vol] Ordered By: Femi Benitez on 03-18-2024 Globulin (S) [Mass/Vol] 2.8 g/dL [facility] Glucose [Mass/volume] in Ser um or PlasmaOrdered By: Femi Benitez on 03-18-2024 Glucose [Mass/Vol] 95 mg/dL 70-100 [facility] Comment on above: ADA recommended refe rence rangeRandom Glucose Reference Range is dependent on time and content of last meal. Glucose of more than 200 mg/dL in a nonstressed, ambulatory subject supports the diagnosis of Diabetes Mellitus. Hematocrit Auto (Bld) [Volum e fraction]Ordered By: Femi Benitez on 03-18-2024 Hematocrit (Bld) [Volume fraction] 48.2 % 34.0-46.4 [facility] Hemoglobin [Mass/volume] in BloodOrdered By: Femi Benitez on 03-18-2024 Hemoglobin (Bld) [Mass/Vol] 16.3 g/dL 11.8-15.4 [facility] Leukocytes [#/volume] correc venkata for nucleated erythrocytes in Blood by Automated counOrdered By: Femi Benitez on 03-18-2024 WBC corrected for nucl RBC Auto (Bld) [#/Vol] 18.5 10*3/uL 3.8-11.6 [facility] Lymphocytes Auto (Bld) [#/Vo l]Ordered By: Femi Benitez on 03-18-2024 Lymphocytes (Bld) [#/Vol] 3.9 10*3/uL 1.00-4.8 [facility] Lymphocytes/100 WBC Auto (Bl d)Ordered By: Femi Benitez on 03-18-2024 Lymphocytes/100 WBC (Bld) 20.9 % . [facility] MCH Auto (RBC) [Entitic mass ]Ordered By: Femi Benitez on 03-18-2024 MCH (RBC) [Entitic mass] 28.2 pg 24.7-34.3 [facility] MCHC Auto (RBC) [Mass/Vol]Or dered By: Femi Benitez on 03-18-2024 MCHC (RBC) [Mass/Vol] 33.9 g/dL 32.0-35.0 [facility] MCV Auto (RBC) [Entitic vol] Ordered By: Femi Benitez on 03-18-2024 MCV (RBC) [Entitic vol] 83.2 fL 80-100 [facility] Monocyte distribution width [Entitic volume] in Blood by AutomatedOrdered By: Femi Benitez on 03-18-2024 Monocyte distribution width Auto (Bld) [Entitic vol] 16.34 % 0.00-20.00 [facility] Monocytes Auto (Bld) [#/Vol] Ordered By: Femi Benitez on 03-18-2024 Monocytes (Bld) [#/Vol] 1.4 10*3/uL 0.0-0.8 [facility] Monocytes/100 WBC Auto (Bld) Ordered By: Femi Benitez on 03-18-2024 Monocytes/100 WBC (Bld) 7.6 % . [facility] Neutrophils Auto (Bld) [#/Vo l]Ordered By: Femi Benitez on 03-18-2024 Neutrophils (Bld) [#/Vol] 12.7 10*3/uL 1.8-7.7 [facility] Neutrophils/100 WBC Auto (Bl d)Ordered By: Femi Benitez on 03-18-2024 Neutrophils/100 WBC (Bld) 68.8 % . [facility] No Panel InformationOrdered By: Femi Benitez on 03-18-2024 Estimated GFR (CKD-EPI) > 60.0 mL/Min [facility] Creatinine Clearance (Chem 120.98 [facility] Nucleated erythrocytes [Pres ence] in Blood by Automated countOrdered By: Femi Benitez on 03-18-2024 Nucleated RBC Auto Ql (Bld) 0.1 /100{WBC} 0-0.5 [facility] Platelet mean volume Auto (B ld) [Entitic vol]Ordered By: Femi Benitez on 03-18-2024 Platelet mean volume (Bld) [Entitic vol] 8.5 fL 6.3-10.7 [facility] Platelets Auto (Bld) [#/Vol] Ordered By: Femi Benitez on 03-18-2024 Platelets (Bld) [#/Vol] 358 10*3/uL 150-450 [facility] Potassium [Moles/volume] in Serum or PlasmaOrdered By: Femi Benitez on 03-18-2024 Potassium [Moles/Vol] See comment 3.5-5.1 [facility] Comment on above: Specimen hemolyzed, redraw requestedResults calledat 2349 on 03/18/24 Protein [Mass/volume] in Ser um or PlasmaOrdered By: Femi Benitez on 03-18-2024 Protein [Mass/Vol] 8.1 g/dL 6.4-8.9 [facility] RBC Auto (Bld) [#/Vol]Ordere d By: Femi Benitez on 03-18-2024 RBC (Bld) [#/Vol] 5.79 10*6/uL 3.60-5.00 [facility] Serum or plasma albumin/glob ulin mass ratioOrdered By: Femi Benitez on 03-18-2024 Albumin/Globulin [Mass ratio] 1.9 {ratio} [facility] Serum or plasma anion gap de terminationOrdered By: Femi Benitez on 03-18-2024 Anion gap [Moles/Vol] TNP [facility] Comment on above: Test not performed Sodium [Moles/volume] in Ser um or PlasmaOrdered By: Femi Benitez on 03-18-2024 Sodium [Moles/Vol] 134 mmol/L 136-145 [facility] Urea nitrogen [Mass/volume] in Serum or PlasmaOrdered By: Femi Benitez on 03-18-2024 Urea nitrogen [Mass/Vol] 27 mg/dL 7-25 [facility] WBC Auto (Bld) [#/Vol]Ordere d By: Femi Benitez on 03-18-2024 WBC (Bld) [#/Vol] 18.5 10*3/uL 3.8-11.6 [facility] CBC w/ Auto Diffon 4 Basophils/100 WBC (Bld) 0.4 % Normal 0.0-2.0 [facility] Comment on above: Performed By: #### 2 072091, [id number], 8245889, 1469742 ####[address] [address] Basophils/Leukocytes Auto (Bld) [Pure # fraction] 0.1 E9/L Normal 0.0-0.2 [facility] Comment on above: Performed By: #### 2 541938, [id number], 6034655, 2875579 ####[address] [address] Eosinophils (Bld) [#/Vol] 0.0 E9/L Normal 0.0-0.5 [facility] Comment on above: Performed By: #### 2 461861, 70008783, 2718903, 1103854 ####[address] [address] Eosinophils/100 WBC (Bld) 0.3 % Normal 0.0-8.0 [facility] Comment on above: Performed By: #### 2 650439, 59116617, 2730157, 9829354 ####[address] [address] Erythrocyte distribution width (RBC) [Ratio] 14.1 % Normal 10.9-14.2 [facility] Comment on above: Performed By: #### 2 003031, 86260226, 1826769, 9709373 ####[address] [address] Hematocrit (Bld) [Volume fraction] 44.0 % Normal 34.0-46.0 [facility] Comment on above: Performed By: #### 2 303560, 34936127, 0911334, 3917117 ####[address] [address] Hemoglobin (Bld) [Mass/Vol] 14.4 g/dL Normal 12.0-16.0 [facility] Comment on above: Performed By: #### 2 555829, 34321398, 7947632, 5496481 ####[address] [address] Lymphocytes (Bld) [#/Vol] 2.2 E9/L Normal 1.0-4.0 [facility] Comment on above: Performed By: #### 2 013031, 49940832, 1253887, 8536007 ####[address] [address] Lymphocytes/100 WBC (Bld) 15.8 % Normal 14.0-50.0 [facility] Comment on above: Performed By: #### 2 819687, 44157894, 9159023, 0970782 ####[address] [address] MCH (RBC) [Entitic mass] 27.8 pg Normal 27.0-34.0 [facility] Comment on above: Performed By: #### 2 710958, 06971092, 0428526, 3690951 ####[address] [address] MCHC (RBC) [Mass/Vol] 32.6 g/dL Normal 31.4-36.[address] [facility] Comment on above: Performed By: #### 2 263662, 86993986, 1892843, 2060059 ####[address] [address] MCV (RBC) [Entitic vol] 85.2 fL Normal 80.0-100.0 [facility] Comment on above: Performed By: #### 2 071343, 59873783, 3693120, 8243217 ####[address] [address] Monocytes (Bld) [#/Vol] 1.1 E9/L High 0.2-1.0 [facility] Comment on above: Performed By: #### 2 308991, 60786700, 1215345, 4245905 ####[address] [address] Neutrophils (Bld) [#/Vol] 10.6 E9/L High 2.0-7.5 [facility] Comment on above: Performed By: #### 2 530436, 43101356, 3200511, 4338109 ####[place] [address] [place] [address] Neutrophils/100 WBC (Bld) 75.9 % High 36.0-75.0 [facility] Comment on above: Performed By: #### 2 846546, 32212947, 8713965, 0058370 ####[place] [address] [place] [address] Platelet mean volume (Bld) [Entitic vol] 8.4 fL Normal 6.4-10.8 [facility] Comment on above: Performed By: #### 2 894832, 40360905, 5489672, 0687609 ####[address] [address] Platelets (Bld) [#/Vol] 276.0 E9/L Normal 150.0-500. 0 [facility] Comment on above: Performed By: #### 2 649070, 05322252, 9091292, 4838892 ####[address] [address] RBC (Bld) [#/Vol] 5.2 E12/L Normal 4.3-5.9 [facility] Comment on above: Performed By: #### 2 499895, 55492426, 6126795, 6599713 ####[address] [address] WBC corrected for nucl RBC Auto (Bld) [#/Vol] 14.0 E9/L High 4.0-11.0 [facility] Comment on above: Performed By: #### 2 764040, 20263709, 6815011, 7864153 ####[address] [address] CHEMISTRYOrdered By: SYSTEM SYSTEM on 03-15-2024 Albumin [...] 03-15-2024 Chloride [Moles/Vol] 99 mmol/L Low 101-111 [facility] Comment on above: Performed By: #### 2 068230, 29237197, 7070055, 0058467 ####[facility] [address] [place] [address] Potassium [Moles/Vol] 3.3 mmol/L Low 3.5-5.[address] [facility] Comment on above: Performed By: #### 2 197258, 25776663, 3715571, 6365097 ####[facility] [address] [place] [address] Sodium [Moles/Vol] 137 mmol/L Normal 135-145 [facility] Comment on above: Performed By: #### 2 849873, 50848107, 5648361, 9147037 ####[facility] [address] [place] [address] Anion gap [Moles/Vol] 22 mmol/L High 6-[address] [facility] Comment on above: Performed By: #### 2 912015, 81813459, 7558389, 0570388 ####[facility] [address] [place] [address] CO2 [Moles/Vol] 19 mmol/L Low 21-31 [facility] Comment on above: Performed By: #### 2 746840, 78257138, 4585102, 7714456 ####[facility] [address] [place] [address] Albumin [Mass/Vol] 5.0 g/dL Normal 3.3-5.0 [facility] Comment on above: Performed By: #### 2 730230, 20302311, 4920853, 0392471 ####[facility] [address] [place] [address] Albumin/Globulin (S) [Mass conc ratio] 1.8 Normal 1.1-2.2 [facility] Comment on above: Performed By: #### 2 740818, 64640695, 0226390, 1140875 ####[facility] [address] [place] [address] ALP [Catalytic activity/Vol] 69 Int._Unit/L Normal 21-98 [facility] Comment on above: Performed By: #### 2 150317, 66079262, 9792417, 1063596 ####[facility] [address] [place] [address] ALT No additional P-5'-P [Catalytic activity/Vol] 31 Int._Unit/L Normal 6-46 [facility] Comment on above: Performed By: #### 2 259119, 91963107, 3091237, 3554915 ####[facility] [address] [place] [address] AST [Catalytic activity/Vol] 19 Int._Unit/L Normal 5-43 [facility] Comment on above: Performed By: #### 2 160917, 44927942, 2742202, 2663914 ####[facility] [address] [facility] [place] [address] Bilirubin [Mass/Vol] 0.8 mg/dL Normal 0.0-1.1 [facility] Comment on above: Performed By: #### 2 028425, 31347946, 3805114, 5171284 ####[facility] [address] [place] [address] Calcium [Mass/Vol] 10.4 mg/dL Normal 8.9-11.1 [facility] Comment on above: Performed By: #### 2 786611, 87889658, 8518140, 6161328 ####[facility] [address] [place] [address] Creatinine [Mass/Vol] 0.8 mg/dL Normal 0.5-1.[address] [facility] Comment on above: Performed By: #### 2 072348, 80086670, 6781294, 6062424 ####[facility] [address] [facility] [place] [address] Globulin (S) [Mass/Vol] 2.8 g/dL Normal 1.4-4.0 [facility] Comment on above: Performed By: #### 2 833663, 93990237, 4545970, 4682805 ####[facility] [address] [place] [address] Glucose [Mass/Vol] 86 mg/dL Normal 55-199 [facility] Comment on above: Performed By: #### 2 195041, 43733162, 2873226, 6831156 ####[facility] [address] [place] [address] Protein [Mass/Vol] 7.8 g/dL Normal 6.0-7.8 [facility] Comment on above: Performed By: #### 2 424796, 51291766, 9563463, 1284869 ####[facility] [address] [place] [address] Urea nitrogen [Mass/Vol] 24 mg/dL High 5-21 [facility] Comment on above: Performed By: #### 2 822774, 37081415, 9270164, 7622599 ####[facility] [address] [place] [address] Urea nitrogen/Creatinine [Mass ratio] 30 No Units High 10-20 [facility] Comment on above: Performed By: #### 2 701466, 23767153, 2716777, 0344505 ####[facility] [address] [place] [address] CT Chest w/ Contraston 03-15 CT Chest [...] 300 Contrast amount in ml's: 100 Normal [facility] Consent for Treatmenton 02-26 Consent for Treatment [id number] Normal [facility] Discharge Instructionson Discharge Instructions [id number] Normal [facility] ED Clinical Summaryon 2023 ED Clinical Summary (Inserted Image. Vesta ble to display) [place] [id number] ED Clinical Summary Person Information Name: PILI PARIKH/[facility] Age: 19 Years : 2005 Sex: Female Language: [place] PCP: MODESTA ARCHIBALD Marital Status: Single Visit [...] 03/15/2024 13:49:40 03/15/2024 13:49:40 03/15/2024 13:49:40 ADDRESS: [address] [place] [id number] PHYS DOC NOTES: MEDICAL INFORMATION: Prescriptions Given: Medications to Continue with No Changes Other Medications acetaminophen-hydrocodone (Bernie 325 mg-5 mg oral tablet) 1 Tablets [...] symptoms. DIAGNOSIS: 1:Nausea and vomiting; 2:Pneumomediastinum Normal [facility] ED Note-Physicianon 03-15-20 ED Note-Physician Basic Information Time Seen: Ebony Birmingham, Beliaaries H 03/15/2024 10:35 Chief Complaint pt. states Dr. [...] and Complexity of Problems Differential Diagnosis: [] [facility] Data External documents reviewed: [] My [...] Return to (more content not included)... Normal [facility] Comment on above: Result Comment: Elec tronically [...] added (diluted fruit juice). ? Eat bland, wpsa-sp-maxrro foods in small amounts as you are able. These foods include bananas, applesauce, rice, lean meats, toast, and crackers. ? Avoid fluids that contain a lot of sugar or caffeine, such as energy drinks, sports drinks, and soda. ? Avoid alcohol. ? Avoid spicy or fatty foods. General instructions ? Take bzmp-msi-trovrnj and prescription medicines only as told by your health care provider. ? Drink enough fluid to keep your urine pale yellow. ? Wash your hands often using soap and water for at least 20 seconds. If soap and water are not available, use hand music video director. ? Make sure that everyone in your [...] and drinking to prevent dehydration. ? Take gkxp-ayp-vwmoypp and prescription medicines only as told by [...] provider. Document Revised: 05/21/2022 Document Reviewed: 05/21/2022 [employer] Patient Education ? 2022 [employer]. Radiology Pneumomediastinum Pneumomediastinum is the presence of [...] marijuana. Spontane (more content not included)... Normal [facility] ED Patient Summaryon 024 ED Patient Summary (Inserted Image. Vesta ble to display) [place] [id number] Patient Discharge Instructions Person Information Name: PILI PARIKH Age: 19 Years Arrival Date: 03/15/2024 10:32:10 Discharge Diagnosis: 1:Nausea and vomiting; 2:Pneumomediastinum Primary Care Physician: MODESTA ARCHIBALD Provider Information Primary Provider: August Beck M.D. [employer] Custom[employer] Painter:None The exam and treatment you received in the Emergency Department were for an urgent problem and are not intended as complete care. It is important that you follow up with a doctor, nurse practitioner, or physician?s customer care assistant for ongoing care. If your symptoms [...] opioids can be used to help relieve vvzivedl-zk-kdlocx pain and are often prescribed following a [...] be strugg (more content not included)... Normal [facility] HEMATOLOGYOrdered By: SYSTEM SYSTEM on 03-15-2024 Basophils/100 [...] 03-15-2024 Magnesium [Mass/Vol] 2.2 mg/dL Normal 1.3-2.4 [facility] Comment on above: Performed By: #### 2 757369, 39172371, 7157038, 1971136 ####[facility] [address] [place] [address] eGFRon 03-15-2024 eGFR 108 mL/min/1.73 m2 Normal >=59 [facility] Comment on above: Order Comment: Order added by Discern Expert. Performed By: #### 2 424378, 03382209, 5366082, 8883907 ####[facility] [address] [place] [address] CT Abdomen/Pelvis w/ Contras ton 03-14-2024 CT [...] 300 Contrast amount in ml's: 130 Normal [facility] CT Chest w/ Contraston 03-14 CT Chest [...] 300 Contrast amount in ml's: 130 Normal [facility] CT Head or Brain w/o Contras ton [...] M.D. Transcribed by: KIRA Technologist: RAVEN Normal [facility] CT Spine Cervical w/o Contra ston 03-14-2024 [...] M.D. Transcribed by: KIRA Technologist: RAVEN Normal [facility] EMS Documentationon 03-14-20 EMS Documentation Please click on link to see report Normal [facility] Comment on above: Result Comment: Miss ing [...] mGy = na DAP = na Normal [facility] ABO/Rhon 03-13-2024 ABO/Rh Positive Invalid Interpretation Code [facility] Comment on above: Performed By: #### 2 419206, 07756419, 09782055, 60026824 ####[facility] [address] [place] [address] ABO/Rh History Checkon 03-13 ABO/Rh History Check Patient discharged prior Normal [facility] Comment on above: Performed By: #### 2 133494, 57797662, 83589888, 41725351 ####[facility] [address] [place] [address] ABSCon 03-13-2024 ABSC Gel Interp Negative Normal [facility] Comment on above: Performed By: #### 2 999099, 06865219, 05189655, 73596442 ####[facility] [address] [place] [address] B hCG Qualon 03-13-2024 Beta HCG ( test) Ql Negative Normal [facility] Comment on above: Performed By: #### 2 7713864, 9691731, 4436133, 7214229, 1504447, 68777966, 42534408, 9973147, 1232474 ####[facility] [address] [place] [address] BLOOD BANKOrdered By: Scarlet Lindquist on 03-13-2024 ABO/Rh Interp Positive Invalid Interpretation Code [facility] BB Subsection ABSC Gel Interp Negative (03/13/24 6:53 PM) Normal [facility] BB Subsection BMPon 03-13-2024 Anion gap [Moles/Vol] 16 mmol/L Normal 05-13 [facility] Comment on above: Performed By: #### 2 1999997, 8607616, 7826177, 3259879, 9267535, 08680650, 27090408, 2806250, 8633018 ####[facility] [address] [place] [address] Calcium [Mass/Vol] 10.8 mg/dL Normal 8.9-11.1 [facility] Comment on above: Performed By: #### 2 5407022, 1355315, 5498018, 7737006, 6417933, 82433569, 51016378, 8060552, 3752944 ####[facility] [address] [place] [address] Chloride [Moles/Vol] 105 mmol/L Normal 101-111 [facility] Comment on above: Performed By: #### 2 8801254, 2935254, 4493290, 9878441, 0800148, 08319554, 42650801, 3075121, 7225195 ####[facility] [address] [place] [address] CO2 [Moles/Vol] 25 mmol/L Normal 21-31 [facility] Comment on above: Performed By: #### 2 8313677, 7582497, 1006895, 7970723, 9626616, 97854838, 07054746, 5994975, 4761930 ####[facility] [address] [place] [address] Creatinine [Mass/Vol] 0.9 mg/dL Normal 0.5-1.[address] [facility] Comment on above: Performed By: #### 2 6989261, 6502771, 2528482, 4115001, 7477972, 99591054, 72600716, 0424397, 4661172 ####[facility] [address] [place] [address] Glucose [Mass/Vol] 100 mg/dL Normal 55-199 [facility] Comment on above: Performed By: #### 2 5228007, 1955583, 8188821, 0488582, 7861895, 55169362, 03619597, 5476057, 7864503 ####[facility] [address] [place] [address] Potassium [Moles/Vol] 3.3 mmol/L Low 3.5-5.[address] [facility] Comment on above: Performed By: #### 2 1477923, 7874597, 0059343, 5559252, 6130175, 93412812, 57674629, 0595877, 8274710 ####[facility] [address] [place] [address] Sodium [Moles/Vol] 143 mmol/L Normal 135-145 [facility] Comment on above: Performed By: #### 2 6538315, 6131252, 7390574, 0110495, 5898043, 29490939, 27955472, 6958675, 3342687 ####[facility] [address] [place] [address] Urea nitrogen [Mass/Vol] 24 mg/dL High 5-21 [facility] Comment on above: Performed By: #### 2 0345208, 1894741, 9618475, 4019126, 4635571, 24552265, 47653423, 0303323, 3200989 ####[facility] [address] [place] [address] Urea nitrogen/Creatinine [Mass ratio] 27 No Units High 10-20 [facility] Comment on above: Performed By: #### 2 0964540, 8346358, 0564616, 6932928, 2376651, 69902047, 71499279, 3559806, 3830216 ####[place] [address] [place] [address] Blood Bank ID#on 03-13-2024 BBID# [id number] Invalid Interpretation Code [facility] Comment on above: Performed By: #### 2 234982, 50830755, 35583726, 12927190 ####[facility] [address] [place] [address] CBC w/ Auto Diffon 4 Basophils/100 WBC (Bld) 0.4 % Normal 0.0-2.0 [facility] Comment on above: Performed By: #### 2 9505216, 5536265, 4910709, 1246177, 3150042, 38791216, 45507473, 5556274, 2863472 ####[facility] [address] [place] [address] Basophils/Leukocytes Auto (Bld) [Pure # fraction] 0.1 E9/L Normal 0.0-0.2 [facility] Comment on above: Performed By: #### 2 1504198, 8581892, 8006975, 1215156, 3042795, 57961057, 94638872, 3139306, 9983450 ####[address] [address] Eosinophils (Bld) [#/Vol] 0.0 E9/L Normal 0.0-0.5 [facility] Comment on above: Performed By: #### 2 8703057, 0967243, 8311518, 3724058, 7447866, 49731907, 77453806, 2701612, 1196626 ####[place] 2229857 Eosinophils/100 WBC (Bld) 0.1 % Normal 0.0-8.0 [facility] Comment on above: Performed By: #### 2 5379838, 9097473, 7796809, 6406640, 1717269, 59968720, 68942663, 3887296, 8089837 ####[place] 2229857 Erythrocyte distribution width (RBC) [Ratio] 14.4 % High 10.9-14.2 [facility] Comment on above: Performed By: #### 2 9559684, 5143685, 0079056, 4152765, 4049999, 73711544, 72912604, 4924567, 3054851 ####[place] 2229857 Hematocrit (Bld) [Volume fraction] 42.5 % Normal 34.0-46.0 [facility] Comment on above: Performed By: #### 2 2204620, 8137441, 1328026, 3268257, 2138913, 68132440, 33850268, 3049223, 8539764 ####[place] 2229857 Hemoglobin (Bld) [Mass/Vol] 14.0 g/dL Normal 12.0-16.0 [facility] Comment on above: Performed By: #### 2 5941099, 5377752, 2046814, 7068175, 8534627, 45310203, 78019013, 8973482, 1159191 ####[facility] [address] [place] [address] Lymphocytes (Bld) [#/Vol] 2.3 E9/L Normal 1.0-4.0 [facility] Comment on above: Performed By: #### 2 7560424, 2762292, 3530190, 7975811, 5996416, 89433387, 42284826, 6705501, 7839117 ####[address] [address] Lymphocytes/100 WBC (Bld) 11.8 % Low 14.0-50.0 [facility] Comment on above: Performed By: #### 2 3736466, 8676054, 8599109, 3411602, 3302688, 48865154, 03268307, 5163519, 2688006 ####[facility] [address] [place] [address] MCH (RBC) [Entitic mass] 27.6 pg Normal 27.0-34.0 [facility] Comment on above: Performed By: #### 2 1166888, 7145449, 0923454, 2260280, 1082066, 12795536, 79059716, 0111597, 7391216 ####[address] [address] MCHC (RBC) [Mass/Vol] 32.9 g/dL Normal 31.4-36.[address] [facility] Comment on above: Performed By: #### 2 6375140, 7525482, 5990699, 3002725, 9838490, 36180086, 99743204, 5814397, 5660934 ####[address] [address] MCV (RBC) [Entitic vol] 83.8 fL Normal 80.0-100.0 [facility] Comment on above: Performed By: #### 2 5601530, 3869876, 6315225, 3061840, 5823044, 20184410, 38457689, 0013893, 2810398 ####[facility] [address] [place] [address] Monocytes (Bld) [#/Vol] 1.4 E9/L High 0.2-1.0 [facility] Comment on above: Performed By: #### 2 9839490, 3666103, 4676658, 2169453, 5450807, 62445103, 69528731, 3659339, 2449670 ####[address] [address] Neutrophils (Bld) [#/Vol] 15.5 E9/L High 2.0-7.5 [facility] Comment on above: Performed By: #### 2 8082571, 3471749, 6348513, 0306154, 7302838, 20255529, 67819300, 5800234, 0294979 ####[address] [address] Neutrophils/100 WBC (Bld) 80.6 % High 36.0-75.0 [facility] Comment on above: Performed By: #### 2 1898078, 1726660, 9888508, 4267528, 3846797, 48957347, 16030722, 1408003, 6633793 ####[address] [address] Platelet mean volume (Bld) [Entitic vol] 8.4 fL Normal 6.4-10.8 [facility] Comment on above: Performed By: #### 2 9887757, 6308919, 4622844, 6683973, 8454065, 18620140, 16844675, 2013511, 6231990 ####[address] [address] Platelets (Bld) [#/Vol] 356.0 E9/L Normal 150.0-500. 0 [facility] Comment on above: Performed By: #### 2 3234508, 9176386, 0400261, 5241187, 9404588, 80218430, 02373095, 1019620, 5814037 ####[facility] [address] [place] [address] RBC (Bld) [#/Vol] 5.1 E12/L Normal 4.3-5.9 [facility] Comment on above: Performed By: #### 2 1765335, 6150329, 4976974, 8165906, 6548509, 11479761, 31993805, 8286274, 4433536 ####[facility] [address] [place] [address] WBC corrected for nucl RBC Auto (Bld) [#/Vol] 19.3 E9/L High 4.0-11.0 [facility] Comment on above: Result Comment: Slid e review performed Performed By: #### 2 8334019, 5245180, 5940532, 4460586, 5045327, 24883767, 84799675, 0471987, 8619602 ####[facility] [address] [place] [address] CHEMISTRYOrdered By: SYSTEM SYSTEM on 03-13-2024 Albumin [...] Sugar Sundar, June 2018) Urea nitrogen [Mass/Vol] 24 mg/dL High 5 - 21 mg/dL Remisol Chem Urea nitrogen/Creatinine [Mass ratio] 27 mg/mg High 10 - 20 Rem[facility] COAGULATIONOrdered By: Jefe elvia Mccain on 03-13-2024 aPTT Coag (PPP) [Time] 32.8 s Normal 25.1 - 36.5 second(s) [facility] Auto Coag Comment on above: Interpretive Data: [...] the same coagulation reagent and instrumentation as [facility]. Currently there are no coagulation studies available worldwide for children to 14 days, and no normal ranges. Heparin therapeutic range (represented by Anti-Factor Xa activity of 0.2 - 0.4 U/mL) corresponds to PTT of 56.6 - 109.0 sec. INR Coag (PPP) [Relative time] 1.11 {INR} Invalid Interpretation Code [facility] Auto Coag Comment on above: Interpretive Data: I NR results are specifically intended to assess patients stabilized on long-term Anticoagulation therapy suggested INR s Less Intensive Anticoagulation 2.0 3.0 Conventional Range 3.0 4.5 PT Coag (PPP) [Time] 12.4 s Normal 9.4 - 1 2.5 second(s) [facility] Auto Coag Comment on above: Interpretive Data: [...] the same coagulation reagent and instrumentation as [facility]. Currently there are no coagulation studies available worldwide for children to 14 days, and no normal ranges. Consent for Treatmenton 02-26 Consent for Treatment [id number] Normal [facility] Discharge Instructionson Discharge Instructions [id number] Normal [facility] ED Clinical Summaryon 2023 ED Clinical Summary (Inserted Image. Vesta ble to display) [address] [address] ED Clinical Summary Person Information [facility]: [facility] 19 [facility] : 2005 Sex: Female Language: [place] PCP: MODESTA ARCHIBALD Marital Status: Single Visit [...] 03/13/2024 22:27:59 03/13/2024 22:27:59 ADDRESS: [address] [facility] [id number] PHYS DOC NOTES: MEDICAL INFORMATION: Prescriptions Given: New Medications [facility]/pharmacy #[id number], [address], [place] [phone], [phone] acetaminophen-hydrocodone (Bernie 325 mg-5 mg oral tablet) 1 Tablets [...] EDUCATION INFORMATION: Instructions: Nausea and Vomiting, Adult, Meps-ax-Zvzz; Muscle Strain, Vhqg-ke-Mani Follow up: With: Address: When: [address] [place] [phone] Business (1) In 3 days 03/16/2024 Comments: [...] Back strain; N&V (nausea and vomiting) Normal [facility] ED Note-Physicianon 03-13-20 ED Note-Physician Basic Information [...] EDT, STA (more content not included)... Normal [facility] Comment on above: Result Comment: Elec tronically [...] ? Low-calorie sports drinks. ? Eat bland, vqis-bb-juqork foods in small amounts as you are able, such as: ? Bananas. ? Applesauce. ? Rice. ? Low-fat (lean) meats. ? [place]. ? Crackers. ? Avoid drinking fluids that have a lot of sugar or caffeine in them. This includes energy drinks, sports drinks, and soda. ? Avoid alcohol. ? Avoid spicy or fatty foods. General instructions ? Take zxef-kjn-dwertvm and prescription medicines only as told by your doctor. ? Drink enough fluid to keep your pee (urine) pale yellow. ? Wash your hands often with soap and water for at least 20 seconds. If you cannot use soap and water, use hand music video director. ? Make sure that everyone in your [...] doctor about eating and drinking. ? Take bzit-dwd-khdbrap and prescription medicines only as told by your doctor. ? Contact your doctor if your symptoms get worse or you have new symptoms. ? Keep all follow-up visits. This information is not intended to replace advice given to you by your health care provider. Make sure you discuss any questions you have with your health care provider. Document Revised: 05/21/2022 Document Reviewed: 05/21/2022 [employer] Patient Education ? 2022 [employer] Orthopedics Muscle Strain A muscle strain, [...] your m (more content not included)... Normal [facility] ED Patient Summaryon 024 ED Patient Summary (Inserted Image. Vesta ble to display) [place] [id number] Patient Discharge Instructions Person Information Name: PILI PARIKH Age: 19 Years Arrival Date: 03/13/2024 17:33:02 Discharge Diagnosis: 1:Fall down stairs; Abnormal CT scan, chest; Back strain; N&V (nausea and vomiting) Primary Care Physician: MODESTA ARCHIBALD Provider Information Primary Provider: Femi Roman DO [employer] Painter:Gasper Lang PA-C The exam and treatment you received in the Emergency Department were for an urgent problem and are not intended as complete care. It is important that you follow up with a doctor, nurse practitioner, or physician?s customer care assistant for ongoing care. If your symptoms [...] With: Address: When: MODESTA ARCHIBALD [address] [place], [place] [phone] Business (1) In 3 days 03/16/2024 Comments: [...] Patient Education Materials: Nausea and Vomiting, Adult, Adsq-fc-Gxxr; Muscle Strain, Kxjy-fj-Wduk A MESSAGE TO ALL PATIENTS REGARDING OPIOIDS PRESCRIPTION OPIOIDS: WHAT YOU NEED TO KNOW Prescription opioids can be used to help relieve iwsujsxu-lx-jxgxxa pain and are often prescribed following a [...] them juan (more content not included)... Normal [facility] ED Traumaon 03-13-2024 ED Trauma [id number] Normal [facility] Ethanolon 03-13-2024 Ethanol Lvl <10 Normal <=11 [facility] Comment on above: Performed By: #### 2 079953 ####[facility] [facility] [address] [place] [address] HEMATOLOGYOrdered By: SYSTEM SYSTEM on 03-13-2024 Basophils/100 [...] 03-13-2024 Albumin [Mass/Vol] 5.4 g/dL High 3.3-5.0 [facility] Comment on above: Performed By: #### 2 [id number], 2329204, 8489885, 6887019, 5964730, 60355133, 19693776, 4071764, 5581790 ####[facility] [address] [place] [address] Albumin/Globulin (S) [Mass conc ratio] 1.8 Normal 1.1-2.2 [facility] Comment on above: Performed By: #### 2 1303710, 9983848, 3481300, 9965661, 8618295, 70403239, 54969930, 8668270, 3537277 ####[facility] [address] [place] [address] ALP [Catalytic activity/Vol] 82 Int._Unit/L Normal 21-98 [facility] Comment on above: Performed By: #### 2 3079253, 5681240, 3499995, 4281418, 3507565, 72801301, 03629044, 9513076, 5525503 ####[facility] [address] [place] [address] ALT No additional P-5'-P [Catalytic activity/Vol] 44 Int._Unit/L Normal 6-46 [facility] Comment on above: Performed By: #### 2 0700384, 9973138, 6665000, 2936187, 1503094, 60272543, 67188926, 2598938, 5157213 ####[place] [id number] AST [Catalytic activity/Vol] 23 Int._Unit/L Normal 5-43 [facility] Comment on above: Performed By: #### 2 8184159, 9959842, 1333668, 6306391, 9192449, 11383509, 71534409, 0306308, 5469869 ####[place] 2229857 Bilirubin [Mass/Vol] 0.8 mg/dL Normal 0.0-1.1 [facility] Comment on above: Performed By: #### 2 9560298, 2149435, 5358662, 5026305, 6588531, 22530517, 19837931, 5899116, 5001934 ####[place] 2229857 Bilirubin.direct [Mass/Vol] 0.2 mg/dL Normal 0.0-0.4 [facility] Comment on above: Performed By: #### 2 0311847, 3078960, 6141398, 1798180, 5136494, 27430007, 20670120, 3257616, 9527578 ####[place] 2229857 Bilirubin.indirect [Mass or moles/Vol] 0.6 mg/dL Normal 0.1-0.9 [facility] Comment on above: Performed By: #### 2 1141455, 2156633, 2150969, 0627571, 1812131, 69602057, 86368189, 1853420, 1847305 ####[facility] [address] [place] [address] Globulin (S) [Mass/Vol] 3.0 g/dL Normal 1.4-4.0 [facility] Comment on above: Performed By: #### 2 8191576, 5133808, 6289766, 2341429, 1427434, 39315423, 19112390, 1308485, 5652800 ####[facility] [address] [place] [address] Protein [Mass/Vol] 8.4 g/dL High 6.0-7.8 [facility] Comment on above: Performed By: #### 2 4801851, 5639307, 2279860, 9094667, 0372706, 86518324, 83876997, 6171205, 5024591 ####[place] [address] [place] [address] Lactic Acidon 03-13-2024 Lactic Acid Lvl 1.7 mmol/L Normal 0.5-2.2 [facility] Comment on above: Performed By: #### 2 7652807, 8630343, 6653833, 0110427, 0349601, 84404731, 41805316, 4453794, 9213300 ####[place] [address] [place] [address] Lipase Levelon 03-13-2024 Lipase [Catalytic activity/Vol] 14 U/L Normal 13-58 [facility] Comment on above: Performed By: #### 2 2626675, 7631634, 9891256, 8963774, 3951540, 99826744, 35577635, 4557229, 9678836 ####[place] [address] [place] [address] Monitor Recordon 03-13-2024 Monitor Record [id number]#1.00TIFF Normal [facility] Monitor Record [id number]#1.00TIFF Normal [facility] PT & PTTon 03-13-2024 aPTT Coag (PPP) [Time] 32.8 second(s) Normal 25.1-36.5 [facility] Comment on above: Result Comment: Para meter [...] the same coagulation reagent and instrumentation as [facility]. Currently there are no coagulation studies available worldwide for children to 14 days, and no normal ranges. Heparin therapeutic range (represented by Anti-Factor Xa activity of 0.2 - 0.4 U/mL) corresponds to PTT of 56.6 - 109.0 sec. Performed By: #### 2 4283358, 1014105, 5160982, 3961081, 7489741, 14354819, 26771257, 7836491, 3849122 ####[facility] [address] [place] [address] INR Coag (PPP) [Relative time] 1.11 {INR} Invalid Interpretation Code [facility] Comment on above: Result Comment: INR results are specifically intended to assess patients stabilized on long-term Anticoagulation therapy suggested INR?s ?Less Intensive Anticoagulation? 2.0 ? 3.0 Conventional Range 3.0 ? 4.5 Performed By: #### 2 7614474, 5479892, 7944172, 4365411, 2356211, 79436498, 46976615, 5305360, 4550926 ####[facility] [address] [place] [address] PT Coag (PPP) [Time] 12.4 second(s) Normal 9.4-12.5 [facility] Comment on above: Result Comment: 15 d [...] the same coagulation reagent and instrumentation as [facility]. Currently there are no coagulation studies available worldwide for children to 14 days, and no normal ranges. Performed By: #### 2 4009473, 5864273, 3530605, 8314880, 6804652, 80641041, 67265732, 4057143, 1629823 ####[facility] [address] [place] [address] Pre-Arrival Noteon Pre-Arrival Note Pre-Arrival Summary Name: , [facility] Current Date: 03/13/2024 17:34:24 EDT Gender: Female Date of : Age: 19 Pre-Arrival Type: EMS ETA: 03/13/2024 17:59:00 EDT Primary Care Physician: Presenting Problem: fall down 10 stairs Pre-Arrival User: Payal Robison RN Referring Source: Location: Completion Date/Time: 03/13/2024 17:29:00 [facility] Emergency Department Pre-Hospital Report Form Vital Signs: 127/83; 66; 17; 96%; GCS 15 Pre-Hospital Report: Treatment in Route: C-COLLAR Response to Treatment: Misc. Issues: Normal [facility] Prescriptions/Work Noteson 0 03-13-2024 Prescriptions/Work Notes [id number]#1.00TIFF Normal [facility] RAD - Preliminary Cat Scan R eporton 03-13-2024 RAD - Preliminary Cat Scan Report [id number]#1.00TIFF Normal [facility] SEROLOGYOrdered By: Virginia Mccain on 03-13-2024 Beta HCG ( test) Ql Negative (03/13/24 6:53 PM) Normal [facility] Man Sero Troponinon 03-13-2024 Troponin 6.10 pg/mL Low 10.10-27.1 0 [facility] Comment on above: Result Comment: The 95% CI (Confidence Interval) PPV (Positive Predictive Value) for myocardial infarction in females is 38 pg/mL, in males 51 pg/mL. The results should be used in conjunction with clinical conditions of myocardial infarction. (Access High Sensitivity Troponin I Instructions For Use, Sugar Sundar, June 2018) Performed By: #### 2 [id number], 9098320, 5792372, 4674759, 4140217, 09881239, 84409831, 3525637, 8414923 ####[facility] [address] [place] [address] eGFRon 03-13-2024 eGFR 94 mL/min/1.73 m2 Normal >=59 [facility] Comment on above: Order Comment: qns t o run. phlebotomists notified of recollect by message. [email or web address] 03/13/2024 18:28:21 EDTOrder added by Discern Expert. Performed By: #### 2 2188687, 4982852, 9464025, 9969080, 6336415, 79874213, 49305003, 2778949, 8846471 ####[facility] [address] [place] [address] Amphetamine Screen Ql (U)Ord ered By: Familia Christian on 05-25-2023 Amphetamines Ql (U) Negative Negative [facility] Barbiturates [Presence] in U rine by Screen methodOrdered By: Familia Christian on 05-25-2023 Barbiturates Screen Ql (U) Negative Negative [facility] Benzodiazepines Screen Ql (U )Ordered By: aFmilia Christian on 05-25-2023 Benzodiazepines Ql (U) Negative Negative [facility] Benzoylecgonine [Presence] i n Urine by Screen methodOrdered By: Familia Christian on 05-25-2023 Benzoylecgonine Screen Ql (U) Negative Negative [facility] Cannabinoids [Presence] in U rine by Screen methodOrdered By: Familia Christian on 05-25-2023 Cannabinoids Screen Ql (U) Positive Negative [facility] Comment on above: These are unconfirme d results and should not be used for legal purposes. Drug Cut-Off Concentration: AMPH 1000 ng/mL NIKOLAS 200 ng/mL SHRAVAN 200 ng/mL COCM 300 ng/mL OP 300 ng/mL PCP 25 ng/mL THC 20 ng/mL HCG ( test) IA.rapi d Ql (U)Ordered By: Familia Christian on 05-25-2023 HCG ( test) Ql (U) Negative [facility] Opiates [Presence] in Urine by Screen methodOrdered By: Familia Christian on 05-25-2023 Opiates Screen Ql (U) Negative Negative [facility] Phencyclidine Screen Ql (U)O rdered By: Familia Christian on 05-25-2023 Phencyclidine Ql (U) Negative Negative [facility] COVID-19 Detected/Not Detect edOrdered By: Modesta Chand on 03-15-2023 SARS-CoV-2 (COVID-19) RNA JANAK+non-probe Ql (Nph) Not detected Not Detecte [facility] Comment on above: This is a duplicate RP2.1 COVID (PCR) result to be used for statistical tracking purpose only. Respiratory pathogens DNA an d RNA panel - Nasopharynx by JANAK with non-probe detectionOrdered By: Modesta Chand on 03-15-2023 Respiratory pathogens DNA and RNA panel JANAK+non-probe (Nph) [facility] Basophils Auto (Bld) [#/Vol] Ordered By: Anette Stout on 01-07-2023 Basophils (Bld) [#/Vol] 0.0 10*3/uL 0.0-0.1 [facility] Basophils/100 WBC Auto (Bld) Ordered By: Anette Stout on 01-07-2023 Basophils/100 WBC (Bld) 0.4 % . [facility] Eosinophils Auto (Bld) [#/Vo l]Ordered By: Anette Stout on 01-07-2023 Eosinophils (Bld) [#/Vol] 0.7 10*3/uL 0.0-0.7 [facility] Eosinophils/100 WBC Auto (Bl d)Ordered By: Anette Stout on 01-07-2023 Eosinophils/100 WBC (Bld) 5.5 % . [facility] Erythrocyte distribution wid th Auto (RBC) [Ratio]Ordered By: Anette Stout on 01-07-2023 Erythrocyte distribution width (RBC) [Ratio] 13.5 % 11.9-15.3 [facility] Estimated glomerular filtrat ion rate (GFR) non- AmericanOrdered By: Anette Stout on 01-07-2023 GFR/1.73 sq M.predicted among non-blacks MDRD (S/P/Bld) [Vol rate/Area] > 60 mL/Min [facility] Hematocrit Auto (Bld) [Volum e fraction]Ordered By: Anette Stout on 01-07-2023 Hematocrit (Bld) [Volume fraction] 41.5 % 36.0-46.0 [facility] Hemoglobin [Mass/volume] in BloodOrdered By: Anette Stout on 01-07-2023 Hemoglobin (Bld) [Mass/Vol] 14.0 g/dL 12.0-16.0 [facility] Leukocytes [#/volume] correc venkata for nucleated erythrocytes in Blood by Automated counOrdered By: Anette Stout on 01-07-2023 WBC corrected for nucl RBC Auto (Bld) [#/Vol] 12.1 10*3/uL 4.5-13.5 [facility] Lymphocytes Auto (Bld) [#/Vo l]Ordered By: Anette Stout on 01-07-2023 Lymphocytes (Bld) [#/Vol] 2.5 10*3/uL 1.20-4.8 [facility] Lymphocytes/100 WBC Auto (Bl d)Ordered By: Anette Stout on 01-07-2023 Lymphocytes/100 WBC (Bld) 20.9 % . [facility] MCH Auto (RBC) [Entitic mass ]Ordered By: Anette Stout on 01-07-2023 MCH (RBC) [Entitic mass] 28.8 pg 25.0-35.0 [facility] MCHC Auto (RBC) [Mass/Vol]Or dered By: Anette Stout on 01-07-2023 MCHC (RBC) [Mass/Vol] 33.7 g/dL 31.0-37.0 [facility] MCV Auto (RBC) [Entitic vol] Ordered By: Anette Stout on 01-07-2023 MCV (RBC) [Entitic vol] 85.5 fL 78-102 [facility] Monocytes Auto (Bld) [#/Vol] Ordered By: Anette Stout on 01-07-2023 Monocytes (Bld) [#/Vol] 0.9 10*3/uL 0.1-1.00 [facility] Monocytes/100 WBC Auto (Bld) Ordered By: Anette Stout on 01-07-2023 Monocytes/100 WBC (Bld) 7.5 % . [facility] Neutrophils Auto (Bld) [#/Vo l]Ordered By: Anette Stout on 01-07-2023 Neutrophils (Bld) [#/Vol] 8.0 10*3/uL 1.2-7.7 [facility] Neutrophils/100 WBC Auto (Bl d)Ordered By: Anette Stout on 01-07-2023 Neutrophils/100 WBC (Bld) 65.7 % . [facility] No Panel InformationOrdered By: Anette Stout on 01-07-2023 > 60 mL/Min [facility] 113.92 [facility] Nucleated erythrocytes [Pres ence] in Blood by Automated countOrdered By: Anette Stout on 01-07-2023 Nucleated RBC Auto Ql (Bld) 0.1 /100{WBC} 0-0.5 [facility] Platelet mean volume Auto (B ld) [Entitic vol]Ordered By: Anette Stout on 01-07-2023 Platelet mean volume (Bld) [Entitic vol] 8.6 fL 6.3-10.7 [facility] Platelets Auto (Bld) [#/Vol] Ordered By: Anette Stout on 01-07-2023 Platelets (Bld) [#/Vol] 222 10*3/uL 150-450 [facility] RBC Auto (Bld) [#/Vol]Ordere d By: Anette Stout on 01-07-2023 RBC (Bld) [#/Vol] 4.85 10*6/uL 4.10-5.10 [facility] Serum or plasma anion gap de terminationOrdered By: Anette Stout on 01-07-2023 Anion gap [Moles/Vol] N/A [facility] Serum or plasma calcium tammy urement (mass/volume)Ordered By: Anette Stout on 01-07-2023 Calcium [Mass/Vol] 8.5 mg/dL 8.2-10.2 [facility] Serum or plasma chloride judy surement (moles/volume)Ordered By: Anette Stout on 01-07-2023 Chloride [Moles/Vol] 103 mmol/L 95-114 [facility] Serum or plasma creatinine m easurement with calculation of estimated glomerular filtrOrdered By: Anette Stout on 01-07-2023 Creatinine and Glomerular filtration rate.predicted panel (S/P/Bld) 0.77 mg/dL 0.44-1.03 [facility] Serum or plasma glucose tammy urement (mass/volume)Ordered By: Anette Stout on 01-07-2023 Glucose [Mass/Vol] 90 mg/dL 70-100 [facility] Serum or plasma potassium me asurement (moles/volume)Ordered By: Eliana Bautista on 01-07-2023 Potassium [Moles/Vol] 3.2 mmol/L 3.5-5.1 [facility] Serum or plasma sodium measu rement (moles/volume)Ordered By: Anette Stout on 01-07-2023 Sodium [Moles/Vol] 134 mmol/L 136-146 [facility] Serum or plasma total carbon dioxide measurement (moles/volume)Ordered By: Anette Stout on 01-07-2023 CO2 [Moles/Vol] 23.4 mmol/L 22.0-30.0 [facility] Serum or plasma urea nitroge n measurement (mass/volume)Ordered By: Anette Stout on 01-07-2023 Urea nitrogen [Mass/Vol] 8 mg/dL 9-23 [facility] WBC Auto (Bld) [#/Vol]Ordere d By: Antete Stout on 01-07-2023 WBC (Bld) [#/Vol] 12.1 10*3/uL 4.5-13.5 [facility] Amphetamine Screen Ql (U)Ord ered By: Anette Stout on 01-06-2023 Amphetamines Ql (U) Negative Negative [facility] Automated erythrocytes count in urine sediment (number/area)Ordered By: Rd Brown on 01-06-2023 RBC Auto (Urine sed) [#/Area] None seen [HPF] 0-4 [facility] Automated leukocytes count i n urine sediment (number/area)Ordered By: Rd Brown on 01-06-2023 WBC Auto (Urine sed) [#/Area] 20-49 [HPF] 0-4 [facility] Automated urine hyaline cast s count (number/volume)Ordered By: Rd Brown on 01-06-2023 Hyaline casts Auto (U) [#/Vol] None seen [LPF] 0-1 [facility] Barbiturates [Presence] in U rineOrdered By: Anette Stout on 01-06-2023 Barbiturates Ql (U) Negative Negative [facility] Basophils Auto (Bld) [#/Vol] Ordered By: Rd Brown on 01-06-2023 Basophils (Bld) [#/Vol] 0.0 10*3/uL 0.0-0.1 [facility] Basophils/100 WBC Auto (Bld) Ordered By: Rd Brown on 01-06-2023 Basophils/100 WBC (Bld) 0.3 % . [facility] Benzodiazepines [Presence] i n UrineOrdered By: Anette Stout on 01-06-2023 Benzodiazepines Ql (U) Negative Negative [facility] Bilirubin Test strip Ql (U)O rdered By: Rd Brown on 01-06-2023 Bilirubin Ql (U) Negative Negative [facility] Body fluid albumin measureme nt (mass/volume)Ordered By: Rd Brown on 01-06-2023 Albumin (Body fld) [Mass/Vol] 4.9 g/dL 3.2-5.5 [facility] Cannabinoids [Presence] in U rine by Screen methodOrdered By: Anette Stout on 01-06-2023 Cannabinoids Screen Ql (U) Positive Negative [facility] Casts typing in urine sedime nt by light microscopyOrdered By: Rd Brown on 01-06-2023 Casts LM Nom (Urine sed) None seen [LPF] None Seen [facility] Color Auto (U)Ordered By: Andrew Brown on 01-06-2023 Color (U) Yellow Yellow [facility] Eosinophils Auto (Bld) [#/Vo l]Ordered By: Rd Brown on 01-06-2023 Eosinophils (Bld) [#/Vol] 0.4 10*3/uL 0.0-0.7 [facility] Eosinophils/100 WBC Auto (Bl d)Ordered By: Rd Brown on 01-06-2023 Eosinophils/100 WBC (Bld) 2.3 % . [facility] Erythrocyte distribution wid th Auto (RBC) [Ratio]Ordered By: Rd Brown on 01-06-2023 Erythrocyte distribution width (RBC) [Ratio] 13.5 % 11.9-15.3 [facility] Estimated glomerular filtrat ion rate (GFR) non- AmericanOrdered By: Rd Brown on 01-06-2023 GFR/1.73 sq M.predicted among non-blacks MDRD (S/P/Bld) [Vol rate/Area] > 60 mL/Min [facility] Globulin Calc (S) [Mass/Vol] Ordered By: Rd Brown on 01-06-2023 Globulin (S) [Mass/Vol] 2.9 g/dL [facility] HCG ( test) IA.rapi d Ql (U)Ordered By: Rd Brown on 01-06-2023 HCG ( test) Ql (U) Negative [facility] Hematocrit Auto (Bld) [Volum e fraction]Ordered By: Rd Brown on 01-06-2023 Hematocrit (Bld) [Volume fraction] 48.3 % 36.0-46.0 [facility] Hemoglobin [Mass/volume] in BloodOrdered By: Rd Brown on 01-06-2023 Hemoglobin (Bld) [Mass/Vol] 16.2 g/dL 12.0-16.0 [facility] Ketones Auto test strip (U) [Mass/Vol]Ordered By: Rd Brown on 01-06-2023 Ketones (U) [Mass/Vol] 4+ Negative [facility] Leukocytes [#/volume] correc venkata for nucleated erythrocytes in Blood by Automated counOrdered By: Rd Brown on 01-06-2023 WBC corrected for nucl RBC Auto (Bld) [#/Vol] 17.7 10*3/uL 4.5-13.5 [facility] Lymphocytes Auto (Bld) [#/Vo l]Ordered By: Rd Brown on 01-06-2023 Lymphocytes (Bld) [#/Vol] 3.5 10*3/uL 1.20-4.8 [facility] Lymphocytes/100 WBC Auto (Bl d)Ordered By: Rd Brown on 01-06-2023 Lymphocytes/100 WBC (Bld) 19.9 % . [facility] MCH Auto (RBC) [Entitic mass ]Ordered By: Rd Brown on 01-06-2023 MCH (RBC) [Entitic mass] 28.7 pg 25.0-35.0 [facility] MCHC Auto (RBC) [Mass/Vol]Or dered By: Rd Brown on 01-06-2023 MCHC (RBC) [Mass/Vol] 33.6 g/dL 31.0-37.0 [facility] MCV Auto (RBC) [Entitic vol] Ordered By: Rd Brown on 01-06-2023 MCV (RBC) [Entitic vol] 85.4 fL 78-102 [facility] Monocyte distribution width [Entitic volume] in Blood by AutomatedOrdered By: Rd Brown on 01-06-2023 Monocyte distribution width Auto (Bld) [Entitic vol] 15.43 % 0.00-20.00 [facility] Monocytes Auto (Bld) [#/Vol] Ordered By: Rd Brown on 01-06-2023 Monocytes (Bld) [#/Vol] 1.3 10*3/uL 0.1-1.00 [facility] Monocytes/100 WBC Auto (Bld) Ordered By: Rd Brown on 01-06-2023 Monocytes/100 WBC (Bld) 7.4 % . [facility] Neutrophils Auto (Bld) [#/Vo l]Ordered By: Rd Brown on 01-06-2023 Neutrophils (Bld) [#/Vol] 12.4 10*3/uL 1.2-7.7 [facility] Neutrophils/100 WBC Auto (Bl d)Ordered By: Rd Brown on 01-06-2023 Neutrophils/100 WBC (Bld) 70.1 % . [facility] Nitrite Test strip Ql (U)Ord ered By: Rd Brown on 01-06-2023 Nitrite Ql (U) Negative Negative [facility] No Panel InformationOrdered By: Anette Stout on 01-06-[address] [facility] No Panel InformationOrdered By: Rd Brown on 01-06-2023 > 60 mL/Min [facility] 31.0 U/L 22-51 [facility] 102.00 [facility] Nucleated erythrocytes [Pres ence] in Blood by Automated countOrdered By: Rd Brown on 01-06-2023 Nucleated RBC Auto Ql (Bld) 0.1 /100{WBC} 0-0.5 [facility] Phencyclidine Screen Ql (U)O rdered By: Anette Stout on 01-06-2023 Phencyclidine Ql (U) Negative Negative [facility] Platelet mean volume Auto (B ld) [Entitic vol]Ordered By: Rd Brown on 01-06-2023 Platelet mean volume (Bld) [Entitic vol] 8.5 fL 6.3-10.7 [facility] Platelets Auto (Bld) [#/Vol] Ordered By: Rd Brown on 01-06-2023 Platelets (Bld) [#/Vol] 296 10*3/uL 150-450 [facility] Protein Auto test strip (U) [Mass/Vol]Ordered By: Rd Brown on 01-06-2023 Protein (U) [Mass/Vol] 100 mg/dL Negative [facility] Protein [Mass/volume] in Ser um or PlasmaOrdered By: Rd Brown on 01-06-2023 Protein [Mass/Vol] 7.8 g/dL 6.1-7.9 [facility] RBC Auto (Bld) [#/Vol]Ordere d By: Rd Brown on 01-06-2023 RBC (Bld) [#/Vol] 5.65 10*6/uL 4.10-5.10 [facility] Serum or plasma alanine florez otransferase measurement without P-5'-P (enzymatic activiOrdered By: Rd Brown on 01-06-2023 ALT No additional P-5'-P [Catalytic activity/Vol] 20 U/L 10-60 [facility] Serum or plasma albumin/glob ulin mass ratioOrdered By: Rd Brown on 01-06-2023 Albumin/Globulin [Mass ratio] 1.7 {ratio} [facility] Serum or plasma alkaline justin sphatase measurement (enzymatic activity/volume)Ordered By: Rd Brown on 01-06-2023 ALP [Catalytic activity/Vol] 66 U/L 32-92 [facility] Serum or plasma anion gap de terminationOrdered By: Rd Brown on 01-06-2023 Anion gap [Moles/Vol] 19.4 mmol/L 6.0-15.0 [facility] Serum or plasma aspartate am inotransferase measurement (enzymatic activity/volume)Ordered By: Rd Brown on 01-06-2023 AST [Catalytic activity/Vol] 20 U/L 10-42 [facility] Serum or plasma calcium tammy urement (mass/volume)Ordered By: Rd Brown on 01-06-2023 Calcium [Mass/Vol] 9.8 mg/dL 8.2-10.2 [facility] Serum or plasma chloride judy surement (moles/volume)Ordered By: Rd Brown on 01-06-2023 Chloride [Moles/Vol] 91 mmol/L 95-114 [facility] Serum or plasma creatinine m easurement with calculation of estimated glomerular filtrOrdered By: Rd Brown on 01-06-2023 Creatinine and Glomerular filtration rate.predicted panel (S/P/Bld) 0.86 mg/dL 0.44-1.03 [facility] Serum or plasma glucose tammy urement (mass/volume)Ordered By: Rd Brown on 01-06-2023 Glucose [Mass/Vol] 80 mg/dL 70-100 [facility] Serum or plasma potassium me asurement (moles/volume)Ordered By: Rd Brown on 01-06-2023 Potassium [Moles/Vol] 2.7 mmol/L 3.5-5.1 [facility] Serum or plasma sodium measu rement (moles/volume)Ordered By: Rd Brown on 01-06-2023 Sodium [Moles/Vol] 132 mmol/L 136-146 [facility] Serum or plasma total biliru bin measurement (mass/volume)Ordered By: Rd Brown on 01-06-2023 Bilirubin [Mass/Vol] 1.5 mg/dL 0.3-1.2 [facility] Serum or plasma total carbon dioxide measurement (moles/volume)Ordered By: Rd Brown on 01-06-2023 CO2 [Moles/Vol] 24.3 mmol/L 22.0-30.0 [facility] Serum or plasma urea nitroge n measurement (mass/volume)Ordered By: Rd Brown on 01-06-2023 Urea nitrogen [Mass/Vol] 19 mg/dL 9-23 [facility] Specific gravity Auto test s trip (U) [Rel density]Ordered By: Rd Brown on 01-06-2023 Specific gravity (U) [Rel density] 1.027 1.001-1.[address] [facility] Squamous epithelial cells de tection in urine sediment by light microscopyOrdered By: Rd Brown on 01-06-2023 Epithelial cells.squamous LM Ql (Urine sed) 10-19 [HPF] 0-2 [facility] Troponin I.cardiac [Mass/vol ume] in Serum or Plasma by High sensitivity methodOrdered By: Federico [place] on 01-06-2023 Troponin I.cardiac High sensitivity method [Mass/Vol] 6 pg/mL 0-15 [facility] Urine bacteria detection by automated methodOrdered By: Rd Brown on 01-06-2023 Bacteria Auto Ql (U) 1+ None Seen [facility] Urine clarity by refractomet ry automatedOrdered By: Rd Brown on 01-06-2023 Clarity Refractometry automated (U) Cloudy Clear [facility] Urine cocaine detectionOrder ed By: Anette Stout on 01-06-2023 Cocaine Ql (U) Negative Negative [facility] Urine glucose measurement by automated test strip (mass/volume)Ordered By: Rd Brown on 01-06-2023 Glucose Auto test strip (U) [Mass/Vol] Normal mg/dL Normal [facility] Urine hemoglobin detection b y automated test stripOrdered By: Rd Brown on 01-06-2023 Hemoglobin Auto test strip Ql (U) 3+ Negative [facility] Urine lactic acid measuremen tOrdered By: Rd Brown on 01-06-2023 Lactate (U) [Moles/Vol] 1.6 mmol/L 0.5-2.2 [facility] Urine leukocyte esterase det ection by automated test stripOrdered By: Rd Brown on 01-06-2023 Leukocyte esterase Auto test strip Ql (U) 2+ Negative [facility] Urobilinogen Auto test strip (U) [Mass/Vol]Ordered By: Rd Brown on 01-06-2023 Urobilinogen (U) [Mass/Vol] Normal mg/dL Normal [facility] WBC Auto (Bld) [#/Vol]Ordere d By: Rd Brown on 01-06-2023 WBC (Bld) [#/Vol] 17.7 10*3/uL 4.5-13.5 [facility] pH Auto test strip (U)Ordere d By: Rd Brown on 01-06-2023 pH (U) 6.5 [pH] 5.0-9.0 [facility] Albumin [Mass/volume] in Ser um or PlasmaOrdered By: Ravi Arguello on 01-02-2023 Albumin [Mass/Vol] 5.0 g/dL 3.2-5.5 [facility] Automated erythrocytes count in urine sediment (number/area)Ordered By: Ravi Arguello on 01-02-2023 RBC Auto (Urine sed) [#/Area] 3-4 [HPF] 0-4 [facility] Automated leukocytes count i n urine sediment (number/area)Ordered By: Ravi Arguello on 01-02-2023 WBC Auto (Urine sed) [#/Area] 50-100 [HPF] 0-4 [facility] Automated urine hyaline cast s count (number/volume)Ordered By: Ravi Arguello on 01-02-2023 Hyaline casts Auto (U) [#/Vol] None seen [LPF] 0-1 [facility] Basophils Auto (Bld) [#/Vol] Ordered By: Ravi Arguello on 01-02-2023 Basophils (Bld) [#/Vol] 0.1 10*3/uL 0.0-0.1 [facility] Basophils/100 WBC Auto (Bld) Ordered By: Ravi Arguello on 01-02-2023 Basophils/100 WBC (Bld) 0.5 % . [facility] Bilirubin Test strip Ql (U)O rdered By: Ravi Arguello on 01-02-2023 Bilirubin Ql (U) Negative Negative [facility] Casts typing in urine sedime nt by light microscopyOrdered By: Ravi Arguello on 01-02-2023 Casts LM Nom (Urine sed) None seen [LPF] None Seen [facility] Color Auto (U)Ordered By: Gisselle Arguello on 01-02-2023 Color (U) Yellow Yellow [facility] Eosinophils Auto (Bld) [#/Vo l]Ordered By: Ravi Arguello on 01-02-2023 Eosinophils (Bld) [#/Vol] 0.0 10*3/uL 0.0-0.7 [facility] Eosinophils/100 WBC Auto (Bl d)Ordered By: Ravi Arguello on 01-02-2023 Eosinophils/100 WBC (Bld) 0.0 % . [facility] Erythrocyte distribution wid th Auto (RBC) [Ratio]Ordered By: Ravi Arguello on 01-02-2023 Erythrocyte distribution width (RBC) [Ratio] 13.9 % 11.9-15.3 [facility] Estimated glomerular filtrat ion rate (GFR) non- AmericanOrdered By: Ravi Arguello on 01-02-2023 GFR/1.73 sq M.predicted among non-blacks MDRD (S/P/Bld) [Vol rate/Area] > 60 mL/Min [facility] Globulin Calc (S) [Mass/Vol] Ordered By: Ravi Arguello on 01-02-2023 Globulin (S) [Mass/Vol] 2.9 g/dL [facility] HCG ( test) IA.rapi d Ql (U)Ordered By: Ravi Arguello on 01-02-2023 HCG ( test) Ql (U) Negative [facility] Hematocrit Auto (Bld) [Volum e fraction]Ordered By: Ravi Arguello on 01-02-2023 Hematocrit (Bld) [Volume fraction] 42.1 % 36.0-46.0 [facility] Hemoglobin [Mass/volume] in BloodOrdered By: Ravi Arguello on 01-02-2023 Hemoglobin (Bld) [Mass/Vol] 14.0 g/dL 12.0-16.0 [facility] Ketones Auto test strip (U) [Mass/Vol]Ordered By: Ravi Arguello on 01-02-2023 Ketones (U) [Mass/Vol] 3+ [facility] [#/volume] correc venkata for nucleated erythrocytes in Blood by Automated counOrdered By: Ravi Arguello on 01-02-2023 WBC corrected for nucl RBC Auto (Bld) [#/Vol] 14.1 10*3/uL 4.5-13.5 [facility] Lymphocytes Auto (Bld) [#/Vo l]Ordered By: Ravi Arguello on 01-02-2023 Lymphocytes (Bld) [#/Vol] 1.4 10*3/uL 1.20-4.8 [facility] Lymphocytes/100 WBC Auto (Bl d)Ordered By: Ravi Arguello on 01-02-2023 Lymphocytes/100 WBC (Bld) 10.1 % . [facility] MCH Auto (RBC) [Entitic mass ]Ordered By: Ravi Arguello on 01-02-2023 MCH (RBC) [Entitic mass] 28.6 pg 25.0-35.0 [facility] MCHC Auto (RBC) [Mass/Vol]Or dered By: Ravi Arguello on 01-02-2023 MCHC (RBC) [Mass/Vol] 33.2 g/dL 31.0-37.0 [facility] MCV Auto (RBC) [Entitic vol] Ordered By: Ravi Arguello on 01-02-2023 MCV (RBC) [Entitic vol] 86.2 fL 78-102 [facility] Monocyte distribution width [Entitic volume] in Blood by AutomatedOrdered By: Ravi Arguello on 01-02-2023 Monocyte distribution width Auto (Bld) [Entitic vol] 16.52 % 0.00-20.00 [facility] Monocytes Auto (Bld) [#/Vol] Ordered By: Ravi Arguello on 01-02-2023 Monocytes (Bld) [#/Vol] 1.0 10*3/uL 0.1-1.00 [facility] Monocytes/100 WBC Auto (Bld) Ordered By: Ravi Arguello on 01-02-2023 Monocytes/100 WBC (Bld) 7.0 % . [facility] Neutrophils Auto (Bld) [#/Vo l]Ordered By: Ravi Arguello on 01-02-2023 Neutrophils (Bld) [#/Vol] 11.6 10*3/uL 1.2-7.7 [facility] Neutrophils/100 WBC Auto (Bl d)Ordered By: Ravi Arguello on 01-02-2023 Neutrophils/100 WBC (Bld) 82.4 % . [facility] Nitrite Test strip Ql (U)Ord ered By: Ravi Arguello on 01-02-2023 Nitrite Ql (U) Negative Negative [facility] No Panel InformationOrdered By: Ravi Arguello on 01-02-2023 > 60 mL/Min [facility] 29.0 U/L 22-51 [facility] 86.85 [facility] Nucleated erythrocytes [Pres ence] in Blood by Automated countOrdered By: Ravi Arguello on 01-02-2023 Nucleated RBC Auto Ql (Bld) 0.0 /100{WBC} 0-0.5 [facility] Platelet mean volume Auto (B ld) [Entitic vol]Ordered By: Ravi Arguello on 01-02-2023 Platelet mean volume (Bld) [Entitic vol] 8.4 fL 6.3-10.7 [facility] Platelets Auto (Bld) [#/Vol] Ordered By: Ravi Arguello on 01-02-2023 Platelets (Bld) [#/Vol] 299 10*3/uL 150-450 [facility] Protein Auto test strip (U) [Mass/Vol]Ordered By: Ravi Arguello on 01-02-2023 Protein (U) [Mass/Vol] 100 mg/dL Negative [facility] Protein [Mass/volume] in Ser um or PlasmaOrdered By: Ravi Arguello on 01-02-2023 Protein [Mass/Vol] 7.9 g/dL 6.1-7.9 [facility] RBC Auto (Bld) [#/Vol]Ordere d By: Ravi Arguello on 01-02-2023 RBC (Bld) [#/Vol] 4.89 10*6/uL 4.10-5.10 [facility] Serum or plasma alanine florez otransferase measurement without P-5'-P (enzymatic activiOrdered By: Ravi Arguello on 01-02-2023 ALT No additional P-5'-P [Catalytic activity/Vol] 26 U/L 10-60 [facility] Serum or plasma albumin/glob ulin mass ratioOrdered By: Ravi Arguello on 01-02-2023 Albumin/Globulin [Mass ratio] 1.7 {ratio} [facility] Serum or plasma alkaline justin sphatase measurement (enzymatic activity/volume)Ordered By: Ravi Arguello on 01-02-2023 ALP [Catalytic activity/Vol] 60 U/L 32-92 [facility] Serum or plasma anion gap de terminationOrdered By: Ravi Arguello on 01-02-2023 Anion gap [Moles/Vol] 16.4 mmol/L 6.0-15.0 [facility] Serum or plasma aspartate am inotransferase measurement (enzymatic activity/volume)Ordered By: Ravi Arguello on 01-02-2023 AST [Catalytic activity/Vol] 32 U/L 10-42 [facility] Serum or plasma calcium tammy urement (mass/volume)Ordered By: Ravi Arguello on 01-02-2023 Calcium [Mass/Vol] 9.8 mg/dL 8.2-10.2 [facility] Serum or plasma chloride judy surement (moles/volume)Ordered By: Ravi Arguello on 01-02-2023 Chloride [Moles/Vol] 106 mmol/L 95-114 [facility] Serum or plasma creatinine m easurement with calculation of estimated glomerular filtrOrdered By: Ravi Arguello on 01-02-2023 Creatinine and Glomerular filtration rate.predicted panel (S/P/Bld) 1.01 mg/dL 0.44-1.03 [facility] Serum or plasma glucose tammy urement (mass/volume)Ordered By: Ravi Arguello on 01-02-2023 Glucose [Mass/Vol] 123 mg/dL 70-100 [facility] Serum or plasma potassium me asurement (moles/volume)Ordered By: Ravi Arguello on 01-02-2023 Potassium [Moles/Vol] 3.2 mmol/L 3.5-5.1 [facility] Serum or plasma sodium measu rement (moles/volume)Ordered By: Ravi Arguello on 01-02-2023 Sodium [Moles/Vol] 142 mmol/L 136-146 [facility] Serum or plasma total biliru bin measurement (mass/volume)Ordered By: Ravi Arguello on 01-02-2023 Bilirubin [Mass/Vol] 0.8 mg/dL 0.3-1.2 [facility] Serum or plasma total carbon dioxide measurement (moles/volume)Ordered By: Ravi Arguello on 01-02-2023 CO2 [Moles/Vol] 22.8 mmol/L 22.0-30.0 [facility] Serum or plasma urea nitroge n measurement (mass/volume)Ordered By: Ravi Arguello on 01-02-2023 Urea nitrogen [Mass/Vol] 22 mg/dL 9-23 [facility] Specific gravity Auto test s trip (U) [Rel density]Ordered By: Ravi Arguello on 01-02-2023 Specific gravity (U) [Rel density] 1.036 1.001-1.[address] [facility] Squamous epithelial cells de tection in urine sediment by light microscopyOrdered By: Ravi Arguello on 01-02-2023 Epithelial cells.squamous LM Ql (Urine sed) Innumerable [HPF] 0-2 [facility] Urine bacteria detection by automated methodOrdered By: Ravi Arguello on 01-02-2023 Bacteria Auto Ql (U) 3+ None Seen [facility] Urine clarity by refractomet ry automatedOrdered By: Ravi Arguello on 01-02-2023 Clarity Refractometry automated (U) Turbid Clear [facility] Urine culture routineOrdered By: Ravi Arguello on 01-02-2023 Bacteria identified Cx Nom (U) [facility] Urine glucose measurement by automated test strip (mass/volume)Ordered By: Ravi Arguello on 01-02-2023 Glucose Auto test strip (U) [Mass/Vol] Normal mg/dL Normal [facility] Urine hemoglobin detection b y automated test stripOrdered By: Ravi Arguello on 01-02-2023 Hemoglobin Auto test strip Ql (U) Negative Negative [facility] Urine leukocyte esterase det ection by automated test stripOrdered By: Ravi Arguello on 01-02-2023 Leukocyte esterase Auto test strip Ql (U) 3+ Negative [facility] Urobilinogen Auto test strip (U) [Mass/Vol]Ordered By: Ravi Arguello on 01-02-2023 Urobilinogen (U) [Mass/Vol] Normal mg/dL Normal [facility] WBC Auto (Bld) [#/Vol]Ordere d By: Ravi Arguello on 01-02-2023 WBC (Bld) [#/Vol] 14.1 10*3/uL 4.5-13.5 [facility] pH Auto test strip (U)Ordere d By: Ravi Arguello on 01-02-2023 pH (U) 6.0 [pH] 5.0-9.0 [facility] CULTURE URINEon 01-01-2023 CULTURE URINE Culture Observations : LIGHT GROWTH OF MIXED GENITAL JORI. NO POTENTIAL PATHOGENS SEEN. Normal [facility] Comment on above: Performed By: #### U RCX #### [facility] [address] [place] [address] Dr. Dacia Ackerman Covid-19 PCR ([facility])on SARS-CoV-2 (COVID-19) RNA JANAK+probe Ql (Unsp spec) Not detected Normal NOT DETECTED [facility] Comment on above: Result Comment: When [...] for this test is supported by the [place] of Health and Human Service's declaration that [...] used). Performed By: #### C VDTBH #### [facility] [address] [place] [address] Dr. Dacia Ackerman DRUG SCREEN RAPID (URINE)on 01-01-2023 AMP Negative Normal NEGATIVE [facility] Comment on above: Performed By: #### D RUGRPD #### [facility] [address] [place] [address] Dr. Dacia Ackerman BAR Negative Normal NEGATIVE [facility] Comment on above: Performed By: #### D RUGRPD #### [facility] [address] [place] [address] Dr. Dacia Ackerman BUP Negative Normal NEGATIVE [facility] Comment on above: Performed By: #### D RUGRPD #### [facility] [address] [place] [address] Dr. Dacia Ackerman BZO Negative Normal NEGATIVE [facility] Comment on above: Performed By: #### D RUGRPD #### [facility] [address] [place] [address] Dr. Dacia Ackerman MELINA Negative Normal NEGATIVE [facility] Comment on above: Performed By: #### D RUGRPD #### [facility] [address] [place] [address] Dr. Dacia Ackerman CUT-OFFS SEE BELOW Normal [facility] Comment on above: Result Comment: AMP (Amphetamine): 500ng/mL, BAR (Barbituates): 200 ng/mL, BZO (Benzodiazepines): 150 ng/mL, BUP (Buprenorphine): 10 ng/mL, MELINA (Cocaine): 150 ng/mL, mAMP (Methamphetamine): 500 ng/mL, MTD (Methadone): 200 ng/mL, OPI (Opiates): 100 ng/mL, OXY (Oxycodone): 100 ng/mL, PCP (Phencyclidine): 25 ng/mL, PPX (Propoxyphene): 300 ng/mL, THC (Cannabinoids): 50 ng/mL, TCA (Trycyclic Antidepressants): 300 ng/mL Performed By: #### D RUGRPD #### [facility] [address] [place] [address] Dr. Dacia Ackerman DRUG CUT HEADER DRUG CLASS TEST SYST EM CUT-OFF CONCENTRATIONS ARE FOLLOWS: Normal [facility] Comment on above: Performed By: #### D RUGRPD #### [facility] [address] [place] [address] Dr. Dacia Ackerman mAMP Negative Normal NEGATIVE [facility] Comment on above: Performed By: #### D RUGRPD #### [facility] [address] [place] [address] Dr. Dacia Ackerman MTD Negative Normal NEGATIVE [facility] Comment on above: Performed By: #### D RUGRPD #### [facility] [address] [place] [address] Dr. Dacia Ackerman OPI Negative Normal NEGATIVE [facility] Comment on above: Performed By: #### D RUGRPD #### [facility] [address] [place] [address] Dr. Dacia Ackerman OXY Negative Normal NEGATIVE [facility] Comment on above: Performed By: #### D RUGRPD #### [facility] [address] [address] [address] Dacia Ackerman PCP Negative Normal NEGATIVE [facility] Comment on above: Performed By: #### D RUGRPD #### [facility] [address] [address] [address] Dacia Ackerman PPX Negative Normal NEGATIVE [facility] Comment on above: Performed By: #### D RUGRPD #### [facility] [address] [address] [address] Dacia Ackerman TCA Negative Normal NEGATIVE [facility] Comment on above: Performed By: #### D RUGRPD #### [facility] [address] [place] [address] Dr. Dacia Ackerman THC Positive Abnormal NEGATIVE [facility] Comment on above: Performed By: #### D RUGRPD #### [facility] [address] [place] [address] Dr. Dacia Ackerman ER URINE PROFILEon 3 Bilirubin Ql (U) SMALL Abnormal NEGATIVE [facility] Comment on above: Performed By: #### P REGU, ERUR, UMICRO #### [facility] [address] [place] [address] Dr. Dacia Ackerman Clarity (U) CLEAR Normal CLEAR [facility] Comment on above: Performed By: #### P REGU, ERUR, UMICRO #### [facility] [address] [place] [address] Dr. Dacia Ackerman Color (U) YELLOW Normal YELLOW [facility] Comment on above: Performed By: #### P REGU, ERUR, UMICRO #### [facility] [address] [place] [address] Dr. Dacia GUAJARDOAHCarl A micrscopic examina tion will be performed if indicated. Normal [facility] Comment on above: Performed By: #### P REGU, ERUR, UMICRO #### [facility] [address] [place] [address] Dr. Dacia Ackerman Glucose Ql (U) Negative Normal NEGATIVE [facility] Comment on above: Performed By: #### P REGU, ERUR, UMICRO #### [facility] [address] [address] [address] Dacia Ackerman Hemoglobin Ql (U) Negative Normal NEGATIVE [facility] Comment on above: Performed By: #### P REGU, ERUR, UMICRO #### [facility] [address] [place] [address] Dr. Dacia Ackerman Ketones Ql (U) >=80 Abnormal NEGATIVE [facility] Comment on above: Performed By: #### P REGU, ERUR, UMICRO #### [facility] [address] [place] [address] Dr. Dacia Ackerman LEUKOCYTES TRACE Abnormal NEGATIVE [facility] Comment on above: Performed By: #### P REGU, ERUR, UMICRO #### [facility] [address] [place] [address] Dr. Dacia Ackerman Nitrite Ql (U) Negative Normal NEGATIVE [facility] Comment on above: Performed By: #### P REGU, ERUR, UMICRO #### [facility] [address] [place] [address] Dr. Dacia Ackerman pH (U) 7.5 [pH] Normal 5-9 [facility] Comment on above: Performed By: #### P REGU, ERUR, UMICRO #### [facility] [address] [place] [address] Dr. Dacia Ackerman Protein (U) [Mass/Vol] 100 mg/dL Abnormal NEGAT JOAO/ TRACE [facility] Comment on above: Performed By: #### P REGU, ERUR, UMICRO #### [facility] [address] [place] [address] Dr. Dacia Ackerman SPEC GRAVITY 1.020 Normal 1.005-<=1. 025 [facility] Comment on above: Performed By: #### P REGU, ERUR, UMICRO #### [facility] [address] [place] [address] Dr. Dacia Ackerman UR MICRO IND INDICATED Normal [facility] Comment on above: Performed By: #### P REGU, ERUR, UMICRO #### [facility] [address] [place] [address] Dr. Dacia Ackerman Urobilinogen Qn (U) 1.0 {Kaykay'U}/dL Normal 0.2 - 1. 0 [facility] Comment on above: Performed By: #### P REGU ERUR, UMICRO #### [facility] [address] [place] [address] Dr. Dacia Ackerman INFLUENZA A AND B AGon 01-01 INFLUANEGH SEE BELOW Normal [facility] Comment on above: Result Comment: Nega tive for Flu A protein angiten. Infection due to Flu A cannot be ruled out. Flu A angiten in the sample may be below the detection limit of the test. Performed By: #### I NFLUAB #### [facility] [address] [place] [address] Dr. Dacia Ackerman INFLUBNEGH SEE BELOW Normal [facility] Comment on above: Result Comment: Nega tive for Flu B protein antigen. Infection due to Flu B cannot be ruled out. Flu B antigen in the sample may be below the detection limit of the test. Performed By: #### I NFLUAB #### [facility] [address] [place] [address] Dr. Dacia Ackerman INFLUENZA A AG Negative Normal NEGATIVE SEE COMMENT [facility] Comment on above: Performed By: #### I NFLUAB #### [facility] [address] [place] [address] Dr. Dacia Ackerman INFLUENZA B AG Negative Normal NEGATIVE SEE COMMENT [facility] Comment on above: Performed By: #### I NFLUAB #### [facility] [address] [place] [address] Dr. Dacia Ackerman URon 01-01-2023 , QUAL Negative Normal NEGATIVE [facility] Comment on above: Performed By: #### P REGU, CASANDRAR, UMICRO #### [facility] [address] [place] [address] Dr. Dacia Ackerman URINE MICROSCOPIC ONLYon BACTERIA MODERATE Abnormal NONE SEEN [facility] Comment on above: Performed By: #### P REGU, ERUR, UMICRO #### [facility] [address] [address] [address] Dacia Ackerman Bacteria identified Cx Nom (U) INDICATED Normal [facility] Comment on above: Performed By: #### P REGU, ERUR, UMICRO #### [facility] [address] [address] [address] Dacia Ackerman CAST NONE SEEN Normal NONE SEEN [facility] Comment on above: Performed By: #### P REGU, ERUR, UMICRO #### [facility] [address] [address] [address] Dacia Ackerman Crystals LM Nom (Urine sed) NONE SEEN Normal NONE SEEN [facility] Comment on above: Performed By: #### P REGU, ERUR, UMICRO #### [facility] [address] [place] [address] Dr. Dacia Ackerman Epithelial cells LM Ql (Urine sed) MANY Abnormal NONE SEEN /RARE [facility] Comment on above: Performed By: #### P REGU, ERUR, UMICRO #### [facility] [address] [place] [address] Dr. Dacia Ackerman MUCOUS SMALL Abnormal NONE SEEN [facility] Comment on above: Performed By: #### P REGU, ERUR, UMICRO #### [facility] [address] [place] [address] Dr. Dacia Ackerman RBC NONE SEEN Abnormal 0-2 [facility] Comment on above: Performed By: #### P REGU, ERUR, UMICRO #### [facility] [address] [address] [address] Dacia Ackerman WBC 5-10 Abnormal NONE SEEN [facility] Comment on above: Performed By: #### P REGU, ERUR, UMICRO #### [facility] [address] [place] [address] Dr. Dacia Ackerman XR CHEST 1 Von [...] KIA ARVIZU Date: 2023-01-01 13:00 Normal [facility] Automated erythrocytes count in urine sediment (number/area)Ordered By: Federico Randolph on 12-31-2022 RBC Auto (Urine sed) [#/Area] 0-1 [HPF] 0-4 [facility] Automated leukocytes count i n urine sediment (number/area)Ordered By: Federico Randolph on 12-31-2022 WBC Auto (Urine sed) [#/Area] 20-49 [HPF] 0-4 [facility] Bacteria identified Cx Nom ( U)Ordered By: Federico Randolph on 12-31-2022 Urine culture routine Staphylococcus epidermidis [facility] Bilirubin Test strip Ql (U)O rdered By: Federico Randolph on 12-31-2022 Bilirubin Ql (U) Negative Negative [facility] COVID-19 SOFIAOrdered By: Deep Randolph on 12-31-2022 SARS-CoV+SARS-CoV-2 (COVID-19) Ag IA.rapid Ql (Resp) Negative Negative [facility] Casts typing in urine sedime nt by light microscopyOrdered By: Federico Randolph on 12-31-2022 Casts LM Nom (Urine sed) None seen [LPF] None Seen [facility] Color Auto (U)Ordered By: Deep Randolph on 12-31-2022 Color (U) Yellow Yellow [facility] [facility] HCG ( test) IA.rapi d Ql (U)Ordered By: Federico Randolph on 12-31-2022 HCG ( test) Ql (U) Negative [facility] Influenza virus A and B anti gen detection by immunoassayOrdered By: Federico Randolph on 12-31-2022 FLUAV+FLUBV Ag IA Ql (Unsp spec) [facility] Ketones Auto test strip (U) [Mass/Vol]Ordered By: Federico Randolph on 12-31-2022 Ketones (U) [Mass/Vol] 3+ Negative [facility] Nitrite Test strip Ql (U)Ord ered By: Federico Randolph on 12-31-2022 Nitrite Ql (U) Negative Negative [facility] No Panel InformationOrdered By: Federico Randolph on 12-31-2022 None seen [LPF] 0-8 [facility] Protein Auto test strip (U) [Mass/Vol]Ordered By: Federico Randolph on 12-31-2022 Protein (U) [Mass/Vol] 100 mg/dL Negative [facility] Specific gravity Auto test s trip (U) [Rel density]Ordered By: Federico Randolph on 12-31-2022 Specific gravity (U) [Rel density] 1.026 1.001-1.[address] [facility] Squamous epithelial cells de tection in urine sediment by light microscopyOrdered By: Federico Randolph on 12-31-2022 Epithelial cells.squamous LM Ql (Urine sed) Innumerable [HPF] 0-2 [facility] Urine bacteria detection by automated methodOrdered By: Federico Randolph on 12-31-2022 Bacteria Auto Ql (U) 3+ None Seen [facility] Urine clarity by refractomet ry automatedOrdered By: Federico Randolph on 12-31-2022 Clarity Refractometry automated (U) Turbid Clear [facility] Urine glucose measurement by automated test strip (mass/volume)Ordered By: Federico Randolph on 12-31-2022 Glucose Auto test strip (U) [Mass/Vol] Normal mg/dL Normal [facility] Urine hemoglobin detection b y automated test stripOrdered By: Federico Randolph on 12-31-2022 Hemoglobin Auto test strip Ql (U) Negative Negative [facility] Urine leukocyte esterase det ection by automated test stripOrdered By: Federico Randolph on 12-31-2022 Leukocyte esterase Auto test strip Ql (U) 2+ Negative [facility] Urobilinogen Auto test strip (U) [Mass/Vol]Ordered By: Federico Randolph on 12-31-2022 Urobilinogen (U) [Mass/Vol] Normal mg/dL Normal [facility] pH Auto test strip (U)Ordere d By: Federico Randolph on 12-31-2022 pH (U) [pH] 5.0-9.0 [facility] Amphetamine Screen Ql (U)Ord ered By: Corey Newberry on 11-09-2022 Amphetamines Ql (U) Negative Negative [facility] Barbiturates [Presence] in U rineOrdered By: Corey Newberry on 11-09-2022 Barbiturates Ql (U) Negative Negative [facility] Basophils Auto (Bld) [#/Vol] Ordered By: Corey Newberry on 11-09-2022 Basophils (Bld) [#/Vol] 0.0 10*3/uL 0.0-0.1 [facility] Basophils/100 WBC Auto (Bld) Ordered By: Corey Newberry on 11-09-2022 Basophils/100 WBC (Bld) 0.3 % . [facility] Benzodiazepines [Presence] i n UrineOrdered By: Corey Newberry on 11-09-2022 Benzodiazepines Ql (U) Negative Negative [facility] Bilirubin Test strip Ql (U)O rdered By: Corey Newberry on 11-09-2022 Bilirubin Ql (U) Negative Negative [facility] Body fluid albumin measureme nt (mass/volume)Ordered By: Corey Newberry on 11-09-2022 Albumin (Body fld) [Mass/Vol] 4.2 g/dL 3.2-5.5 [facility] Cannabinoids [Presence] in U rine by Screen methodOrdered By: Corey Newberry on 11-09-2022 Cannabinoids Screen Ql (U) Positive Negative [facility] Color Auto (U)Ordered By: Nazia Newberry on 11-09-2022 Color (U) Yellow Yellow [facility] Eosinophils Auto (Bld) [#/Vo l]Ordered By: Corey Newberry on 11-09-2022 Eosinophils (Bld) [#/Vol] 0.1 10*3/uL 0.0-0.7 [facility] Eosinophils/100 WBC Auto (Bl d)Ordered By: Corey Newberry on 11-09-2022 Eosinophils/100 WBC (Bld) 0.8 % . [facility] Erythrocyte distribution wid th Auto (RBC) [Ratio]Ordered By: Corey Newberry on 11-09-2022 Erythrocyte distribution width (RBC) [Ratio] 13.8 % 11.9-15.3 [facility] Estimated glomerular filtrat ion rate (GFR) non- AmericanOrdered By: Corey Newberry on 11-09-2022 GFR/1.73 sq M.predicted among non-blacks MDRD (S/P/Bld) [Vol rate/Area] > 60 mL/Min [facility] Globulin Calc (S) [Mass/Vol] Ordered By: Corey Newberry on 11-09-2022 Globulin (S) [Mass/Vol] 2.4 g/dL [facility] HCG ( test) IA.rapi d Ql (U)Ordered By: Corey Newberry on 11-09-2022 HCG ( test) Ql (U) Negative [facility] Hematocrit Auto (Bld) [Volum e fraction]Ordered By: Corey Newberry on 11-09-2022 Hematocrit (Bld) [Volume fraction] 41.0 % 36.0-46.0 [facility] Hemoglobin [Mass/volume] in BloodOrdered By: Corey Newberry on 11-09-2022 Hemoglobin (Bld) [Mass/Vol] 13.4 g/dL 12.0-16.0 [facility] Ketones Auto test strip (U) [Mass/Vol]Ordered By: Corey Newberry on 11-09-2022 Ketones (U) [Mass/Vol] Negative Negative [facility] Leukocytes [#/volume] correc venkata for nucleated erythrocytes in Blood by Automated counOrdered By: Corey Newberry on 11-09-2022 WBC corrected for nucl RBC Auto (Bld) [#/Vol] 11.7 10*3/uL 4.5-13.5 [facility] Lymphocytes Auto (Bld) [#/Vo l]Ordered By: Corey Newberry on 11-09-2022 Lymphocytes (Bld) [#/Vol] 1.4 10*3/uL 1.20-4.8 [facility] Lymphocytes/100 WBC Auto (Bl d)Ordered By: Corey Newberry on 11-09-2022 Lymphocytes/100 WBC (Bld) 12.1 % . [facility] MCH Auto (RBC) [Entitic mass ]Ordered By: Corey Newberry on 11-09-2022 MCH (RBC) [Entitic mass] 28.1 pg 25.0-35.0 [facility] MCHC Auto (RBC) [Mass/Vol]Or dered By: Corey Newberry on 11-09-2022 MCHC (RBC) [Mass/Vol] 32.8 g/dL 31.0-37.0 [facility] MCV Auto (RBC) [Entitic vol] Ordered By: Corey Newberry on 11-09-2022 MCV (RBC) [Entitic vol] 85.7 fL 78-102 [facility] Monocyte distribution width [Entitic volume] in Blood by AutomatedOrdered By: Corey Newberry on 11-09-2022 Monocyte distribution width Auto (Bld) [Entitic vol] 16.08 % 0.00-20.00 [facility] Monocytes Auto (Bld) [#/Vol] Ordered By: Corey Newberry on 11-09-2022 Monocytes (Bld) [#/Vol] 0.5 10*3/uL 0.1-1.00 [facility] Monocytes/100 WBC Auto (Bld) Ordered By: Corey Newberry on 11-09-2022 Monocytes/100 WBC (Bld) 4.7 % . [facility] Neutrophils Auto (Bld) [#/Vo l]Ordered By: Corey Newberry on 11-09-2022 Neutrophils (Bld) [#/Vol] 9.6 10*3/uL 1.2-7.7 [facility] Neutrophils/100 WBC Auto (Bl d)Ordered By: Corey Newberry on 11-09-2022 Neutrophils/100 WBC (Bld) 82.1 % . [facility] Nitrite Test strip Ql (U)Ord ered By: Corey Newberry on 11-09-2022 Nitrite Ql (U) Negative Negative [facility] No Panel InformationOrdered By: Corey Newberry on 11-09-[address] [facility] > 60 mL/Min [facility] 118.86 [facility] Nucleated erythrocytes [Pres ence] in Blood by Automated countOrdered By: Corey Newberry on 11-09-2022 Nucleated RBC Auto Ql (Bld) 0.1 /100{WBC} 0-0.5 [facility] Phencyclidine Screen Ql (U)O rdered By: Corey Newberry on 11-09-2022 Phencyclidine Ql (U) Negative Negative [facility] Platelet mean volume Auto (B ld) [Entitic vol]Ordered By: Corey Newberry on 11-09-2022 Platelet mean volume (Bld) [Entitic vol] 8.5 fL 6.3-10.7 [facility] Platelets Auto (Bld) [#/Vol] Ordered By: Corey Newberry on 11-09-2022 Platelets (Bld) [#/Vol] 274 10*3/uL 150-450 [facility] Protein Auto test strip (U) [Mass/Vol]Ordered By: Corey Newberry on 11-09-2022 Protein (U) [Mass/Vol] Negative Negative [facility] Protein [Mass/volume] in Ser um or PlasmaOrdered By: Corey Newberry on 11-09-2022 Protein [Mass/Vol] 6.6 g/dL 6.1-7.9 [facility] RBC Auto (Bld) [#/Vol]Ordere d By: Corey Newberry on 11-09-2022 RBC (Bld) [#/Vol] 4.78 10*6/uL 4.10-5.10 [facility] Serum or plasma alanine florez otransferase measurement without P-5'-P (enzymatic activiOrdered By: Corey Newberry on 11-09-2022 ALT No additional P-5'-P [Catalytic activity/Vol] 67 U/L 10-60 [facility] Serum or plasma albumin/glob ulin mass ratioOrdered By: Corey Newberry on 11-09-2022 Albumin/Globulin [Mass ratio] 1.8 {ratio} [facility] Serum or plasma alkaline justin sphatase measurement (enzymatic activity/volume)Ordered By: Corey Newberry on 11-09-2022 ALP [Catalytic activity/Vol] 59 U/L 32-92 [facility] Serum or plasma anion gap de terminationOrdered By: Corey Newberry on 11-09-2022 Anion gap [Moles/Vol] 19.7 mmol/L 6.0-15.0 [facility] Serum or plasma aspartate am inotransferase measurement (enzymatic activity/volume)Ordered By: Corey Newberry on 11-09-2022 AST [Catalytic activity/Vol] 48 U/L 10-42 [facility] Serum or plasma calcium tammy urement (mass/volume)Ordered By: Corey Newberry on 11-09-2022 Calcium [Mass/Vol] 9.6 mg/dL 8.2-10.2 [facility] Serum or plasma chloride judy surement (moles/volume)Ordered By: Corey Newberry on 11-09-2022 Chloride [Moles/Vol] 98 mmol/L 95-114 [facility] Serum or plasma creatinine m easurement with calculation of estimated glomerular filtrOrdered By: Corey Newberry on 11-09-2022 Creatinine and Glomerular filtration rate.predicted panel (S/P/Bld) 0.76 mg/dL 0.44-1.03 [facility] Serum or plasma glucose tammy urement (mass/volume)Ordered By: Corey Newberry on 11-09-2022 Glucose [Mass/Vol] 110 mg/dL 70-100 [facility] Serum or plasma potassium me asurement (moles/volume)Ordered By: Corey Newberry on 11-09-2022 Potassium [Moles/Vol] 3.4 mmol/L 3.5-5.1 [facility] Serum or plasma sodium measu rement (moles/volume)Ordered By: Corey Newberry on 11-09-2022 Sodium [Moles/Vol] 137 mmol/L 136-146 [facility] Serum or plasma total biliru bin measurement (mass/volume)Ordered By: Corey Newberry on 11-09-2022 Bilirubin [Mass/Vol] 0.5 mg/dL 0.3-1.2 [facility] Serum or plasma total carbon dioxide measurement (moles/volume)Ordered By: Corey Newberry on 11-09-2022 CO2 [Moles/Vol] 22.7 mmol/L 22.0-30.0 [facility] Serum or plasma urea nitroge n measurement (mass/volume)Ordered By: Corey Newberry on 11-09-2022 Urea nitrogen [Mass/Vol] 3 mg/dL 08-20 [facility] Specific gravity Auto test s trip (U) [Rel density]Ordered By: Corey Newberry on 11-09-2022 Specific gravity (U) [Rel density] 1.009 1.001-1.[address] [facility] Urine clarity by refractomet ry automatedOrdered By: Corey Newberry on 11-09-2022 Clarity Refractometry automated (U) Clear Clear [facility] Urine cocaine detectionOrder ed By: Corey Newberry on 11-09-2022 Cocaine Ql (U) Negative Negative [facility] Urine glucose measurement by automated test strip (mass/volume)Ordered By: Corey Newberry on 11-09-2022 Glucose Auto test strip (U) [Mass/Vol] Normal mg/dL Normal [facility] Urine hemoglobin detection b y automated test stripOrdered By: Corey Newberry on 11-09-2022 Hemoglobin Auto test strip Ql (U) Negative Negative [facility] Urine leukocyte esterase det ection by automated test stripOrdered By: Corey Newberry on 11-09-2022 Leukocyte esterase Auto test strip Ql (U) Negative Negative [facility] Urobilinogen Auto test strip (U) [Mass/Vol]Ordered By: Corey Newberry on 11-09-2022 Urobilinogen (U) [Mass/Vol] Normal mg/dL Normal [facility] WBC Auto (Bld) [#/Vol]Ordere d By: Corey Newberry on 11-09-2022 WBC (Bld) [#/Vol] 11.7 10*3/uL 4.5-13.5 [facility] pH Auto test strip (U)Ordere d By: Corey Newberry on 11-09-2022 pH (U) [pH] 5.0-9.0 [facility] Albumin [Mass/volume] in Ser um or PlasmaOrdered By: Art Bianchi on 11-07-2022 Albumin [Mass/Vol] 4.6 g/dL 3.2-5.5 [facility] Automated erythrocytes count in urine sediment (number/area)Ordered By: Art Bianchi on 11-07-2022 RBC Auto (Urine sed) [#/Area] 0-1 [HPF] 0-4 [facility] Automated leukocytes count i n urine sediment (number/area)Ordered By: Art Bianchi on 11-07-2022 WBC Auto (Urine sed) [#/Area] 3-4 [HPF] 0-4 [facility] Basophils Auto (Bld) [#/Vol] Ordered By: Art Bianchi on 11-07-2022 Basophils (Bld) [#/Vol] 0.1 10*3/uL 0.0-0.1 [facility] Basophils/100 WBC Auto (Bld) Ordered By: Art Bianchi on 11-07-2022 Basophils/100 WBC (Bld) 1.0 % . [facility] Bilirubin Test strip Ql (U)O rdered By: Art Bianchi on 11-07-2022 Bilirubin Ql (U) Negative Negative [facility] Color Auto (U)Ordered By: Adrian red Tash on 11-07-2022 Color (U) Yellow Yellow [facility] Eosinophils Auto (Bld) [#/Vo l]Ordered By: Art Bianchi on 11-07-2022 Eosinophils (Bld) [#/Vol] 0.1 10*3/uL 0.0-0.7 [facility] Eosinophils/100 WBC Auto (Bl d)Ordered By: Art Bianchi on 11-07-2022 Eosinophils/100 WBC (Bld) 1.2 % . [facility] Erythrocyte distribution wid th Auto (RBC) [Ratio]Ordered By: Art Bianchi on 11-07-2022 Erythrocyte distribution width (RBC) [Ratio] 14.0 % 11.9-15.3 [facility] Estimated glomerular filtrat ion rate (GFR) non- AmericanOrdered By: Art Bianchi on 11-07-2022 GFR/1.73 sq M.predicted among non-blacks MDRD (S/P/Bld) [Vol rate/Area] > 60 mL/Min [facility] Globulin Calc (S) [Mass/Vol] Ordered By: Atr Bianchi on 11-07-2022 Globulin (S) [Mass/Vol] 2.7 g/dL [facility] HCG ( test) IA.rapi d Ql (U)Ordered By: Art Bianchi on 11-07-2022 HCG ( test) Ql (U) Negative [facility] Hematocrit Auto (Bld) [Volum e fraction]Ordered By: Art Bianchi on 11-07-2022 Hematocrit (Bld) [Volume fraction] 43.2 % 36.0-46.0 [facility] Hemoglobin [Mass/volume] in BloodOrdered By: Art Bianchi on 11-07-2022 Hemoglobin (Bld) [Mass/Vol] 14.8 g/dL 12.0-16.0 [facility] Ketones Auto test strip (U) [Mass/Vol]Ordered By: Art Bianchi on 11-07-2022 Ketones (U) [Mass/Vol] 1+ [facility] Leukocytes [#/volume] correc venkata for nucleated erythrocytes in Blood by Automated counOrdered By: Art Bianchi on 11-07-2022 WBC corrected for nucl RBC Auto (Bld) [#/Vol] 10.3 10*3/uL 4.5-13.5 [facility] Lymphocytes Auto (Bld) [#/Vo l]Ordered By: Art Bianchi on 11-07-2022 Lymphocytes (Bld) [#/Vol] 2.1 10*3/uL 1.20-4.8 [facility] Lymphocytes/100 WBC Auto (Bl d)Ordered By: Art Bianchi on 11-07-2022 Lymphocytes/100 WBC (Bld) 20.8 % . [facility] MCH Auto (RBC) [Entitic mass ]Ordered By: Art Bianchi on 11-07-2022 MCH (RBC) [Entitic mass] 28.8 pg 25.0-35.0 [facility] MCHC Auto (RBC) [Mass/Vol]Or dered By: Art Bianchi on 11-07-2022 MCHC (RBC) [Mass/Vol] 34.3 g/dL 31.0-37.0 [facility] MCV Auto (RBC) [Entitic vol] Ordered By: Art Bianchi on 11-07-2022 MCV (RBC) [Entitic vol] 84.1 fL 78-102 [facility] Monocyte distribution width [Entitic volume] in Blood by AutomatedOrdered By: Art Bianchi on 11-07-2022 Monocyte distribution width Auto (Bld) [Entitic vol] 17.07 % 0.00-20.00 [facility] Monocytes Auto (Bld) [#/Vol] Ordered By: Art Bianchi on 11-07-2022 Monocytes (Bld) [#/Vol] 0.8 10*3/uL 0.1-1.00 [facility] Monocytes/100 WBC Auto (Bld) Ordered By: Art Bianchi on 11-07-2022 Monocytes/100 WBC (Bld) 8.1 % . [facility] Neutrophils Auto (Bld) [#/Vo l]Ordered By: Art Bianchi on 11-07-2022 Neutrophils (Bld) [#/Vol] 7.1 10*3/uL 1.2-7.7 [facility] Neutrophils/100 WBC Auto (Bl d)Ordered By: Art Bianchi on 11-07-2022 Neutrophils/100 WBC (Bld) 68.9 % . [facility] Nitrite Test strip Ql (U)Ord ered By: Art Bianchi on 11-07-2022 Nitrite Ql (U) Negative Negative [facility] No Panel InformationOrdered By: Art Bianchi on 11-07-2022 0-8 [LPF] 0-8 [facility] > 60 mL/Min [facility] 43.0 U/L 22-51 [facility] 104.35 [facility] Nucleated erythrocytes [Pres ence] in Blood by Automated countOrdered By: Art Bianchi on 11-07-2022 Nucleated RBC Auto Ql (Bld) 0.3 /100{WBC} 0-0.5 [facility] Platelet mean volume Auto (B ld) [Entitic vol]Ordered By: Art Bianchi on 11-07-2022 Platelet mean volume (Bld) [Entitic vol] 8.4 fL 6.3-10.7 [facility] Platelets Auto (Bld) [#/Vol] Ordered By: Art Bianchi on 11-07-2022 Platelets (Bld) [#/Vol] 308 10*3/uL 150-450 [facility] Protein Auto test strip (U) [Mass/Vol]Ordered By: Art Bianchi on 11-07-2022 Protein (U) [Mass/Vol] Trace mg/dL Negative [facility] Protein [Mass/volume] in Ser um or PlasmaOrdered By: Art Bianchi on 11-07-2022 Protein [Mass/Vol] 7.3 g/dL 6.1-7.9 [facility] RBC Auto (Bld) [#/Vol]Ordere d By: Art Bianchi on 11-07-2022 RBC (Bld) [#/Vol] 5.14 10*6/uL 4.10-5.10 [facility] Serum or plasma alanine florez otransferase measurement without P-5'-P (enzymatic activiOrdered By: Art Bianchi on 11-07-2022 ALT No additional P-5'-P [Catalytic activity/Vol] 24 U/L 10-60 [facility] Serum or plasma albumin/glob ulin mass ratioOrdered By: Art Bianchi on 11-07-2022 Albumin/Globulin [Mass ratio] 1.7 {ratio} [facility] Serum or plasma alkaline justin sphatase measurement (enzymatic activity/volume)Ordered By: Art Bianchi on 11-07-2022 ALP [Catalytic activity/Vol] 60 U/L 32-92 [facility] Serum or plasma anion gap de terminationOrdered By: Art Bianchi on 11-07-2022 Anion gap [Moles/Vol] 12.2 mmol/L 6.0-15.0 [facility] Serum or plasma aspartate am inotransferase measurement (enzymatic activity/volume)Ordered By: Art Bianchi on 11-07-2022 AST [Catalytic activity/Vol] 25 U/L 10-42 [facility] Serum or plasma calcium tammy urement (mass/volume)Ordered By: Art Bianchi on 11-07-2022 Calcium [Mass/Vol] 9.6 mg/dL 8.2-10.2 [facility] Serum or plasma chloride judy surement (moles/volume)Ordered By: Art Bianchi on 11-07-2022 Chloride [Moles/Vol] 98 mmol/L 95-114 [facility] Serum or plasma creatinine m easurement with calculation of estimated glomerular filtrOrdered By: Art Bianchi on 11-07-2022 Creatinine and Glomerular filtration rate.predicted panel (S/P/Bld) 0.84 mg/dL 0.44-1.03 [facility] Serum or plasma glucose tammy urement (mass/volume)Ordered By: Art Bianchi on 11-07-2022 Glucose [Mass/Vol] 106 mg/dL 70-100 [facility] Serum or plasma potassium me asurement (moles/volume)Ordered By: Art Bianchi on 11-07-2022 Potassium [Moles/Vol] 3.2 mmol/L 3.5-5.1 [facility] Serum or plasma sodium measu rement (moles/volume)Ordered By: Art Bianchi on 11-07-2022 Sodium [Moles/Vol] 132 mmol/L 136-146 [facility] Serum or plasma total biliru bin measurement (mass/volume)Ordered By: Art Bianchi on 11-07-2022 Bilirubin [Mass/Vol] 0.8 mg/dL 0.3-1.2 [facility] Serum or plasma total carbon dioxide measurement (moles/volume)Ordered By: Art Bianchi on 11-07-2022 CO2 [Moles/Vol] 25.0 mmol/L 22.0-30.0 [facility] Serum or plasma urea nitroge n measurement (mass/volume)Ordered By: Art Bianchi on 11-07-2022 Urea nitrogen [Mass/Vol] 6 mg/dL 9-23 [facility] Specific gravity Auto test s trip (U) [Rel density]Ordered By: Art Bianchi on 11-07-2022 Specific gravity (U) [Rel density] 1.014 1.001-1.[address] [facility] Squamous epithelial cells de tection in urine sediment by light microscopyOrdered By: Art Bianchi on 11-07-2022 Epithelial cells.squamous LM Ql (Urine sed) 5-9 [HPF] 0-2 [facility] Urine bacteria detection by automated methodOrdered By: Art Bianchi on 11-07-2022 Bacteria Auto Ql (U) None seen None Seen [facility] Urine clarity by refractomet ry automatedOrdered By: Art Bianchi on 11-07-2022 Clarity Refractometry automated (U) Clear Clear [facility] Urine glucose measurement by automated test strip (mass/volume)Ordered By: Art Bianchi on 11-07-2022 Glucose Auto test strip (U) [Mass/Vol] Normal mg/dL Normal [facility] Urine hemoglobin detection b y automated test stripOrdered By: Art Bianchi on 11-07-2022 Hemoglobin Auto test strip Ql (U) Negative Negative [facility] Urine leukocyte esterase det ection by automated test stripOrdered By: Art Bianchi on 11-07-2022 Leukocyte esterase Auto test strip Ql (U) Negative Negative [facility] Urobilinogen Auto test strip (U) [Mass/Vol]Ordered By: Art Bianchi on 11-07-2022 Urobilinogen (U) [Mass/Vol] Normal mg/dL Normal [facility] WBC Auto (Bld) [#/Vol]Ordere d By: Art Bianchi on 11-07-2022 WBC (Bld) [#/Vol] 10.3 10*3/uL 4.5-13.5 [facility] pH Auto test strip (U)Ordere d By: Art Bianchi on 11-07-2022 pH (U) 8.5 [pH] 5.0-9.0 [facility] Urine culture routineOrdered By: Colten Fry on 11-04-2022 Bacteria identified Cx Nom (U) [address] [facility] Albumin [Mass/volume] in Ser um or PlasmaOrdered By: Colten Fry on 11-02-2022 Albumin [Mass/Vol] 4.8 g/dL 3.2-5.5 [facility] Amphetamine Screen Ql (U)Ord ered By: Colten Fry on 11-02-2022 Amphetamines Ql (U) Negative Negative [facility] Automated erythrocytes count in urine sediment (number/area)Ordered By: Colten Fry on 11-02-2022 RBC Auto (Urine sed) [#/Area] 20-49 [HPF] 0-4 [facility] Automated leukocytes count i n urine sediment (number/area)Ordered By: Colten Fry on 11-02-2022 WBC Auto (Urine sed) [#/Area] 5-9 [HPF] 0-4 [facility] Barbiturates [Presence] in U rineOrdered By: Colten Fry on 11-02-2022 Barbiturates Ql (U) Negative Negative [facility] Basophils Auto (Bld) [#/Vol] Ordered By: Colten Fry on 11-02-2022 Basophils (Bld) [#/Vol] 0.1 10*3/uL 0.0-0.1 [facility] Basophils/100 WBC Auto (Bld) Ordered By: Colten Fry on 11-02-2022 Basophils/100 WBC (Bld) 0.5 % . [facility] Benzodiazepines [Presence] i n UrineOrdered By: Colten Fry on 11-02-2022 Benzodiazepines Ql (U) Negative Negative [facility] Bilirubin Test strip Ql (U)O rdered By: Colten Fry on 11-02-2022 Bilirubin Ql (U) Negative Negative [facility] Cannabinoids [Presence] in U rine by Screen methodOrdered By: Colten Fry on 11-02-2022 Cannabinoids Screen Ql (U) Positive Negative [facility] Color Auto (U)Ordered By: Vida Fry on 11-02-2022 Color (U) Yellow Yellow [facility] Eosinophils Auto (Bld) [#/Vo l]Ordered By: Colten Fry on 11-02-2022 Eosinophils (Bld) [#/Vol] 0.3 10*3/uL 0.0-0.7 [facility] Eosinophils/100 WBC Auto (Bl d)Ordered By: Colten Fry on 11-02-2022 Eosinophils/100 WBC (Bld) 2.1 % . [facility] Erythrocyte distribution wid th Auto (RBC) [Ratio]Ordered By: Colten Fry on 11-02-2022 Erythrocyte distribution width (RBC) [Ratio] 13.7 % 11.9-15.3 [facility] Estimated glomerular filtrat ion rate (GFR) non- AmericanOrdered By: Colten Fry on 11-02-2022 GFR/1.73 sq M.predicted among non-blacks MDRD (S/P/Bld) [Vol rate/Area] > 60 mL/Min [facility] Globulin Calc (S) [Mass/Vol] Ordered By: Colten Fry on 11-02-2022 Globulin (S) [Mass/Vol] 3.1 g/dL [facility] HCG ( test) IA.rapi d Ql (U)Ordered By: Colten Fry on 11-02-2022 HCG ( test) Ql (U) Negative [facility] Hematocrit Auto (Bld) [Volum e fraction]Ordered By: Colten Fry on 11-02-2022 Hematocrit (Bld) [Volume fraction] 45.3 % 36.0-46.0 [facility] Hemoglobin [Mass/volume] in BloodOrdered By: Colten Fry on 11-02-2022 Hemoglobin (Bld) [Mass/Vol] 15.4 g/dL 12.0-16.0 [facility] Ketones Auto test strip (U) [Mass/Vol]Ordered By: Colten Fry on 11-02-2022 Ketones (U) [Mass/Vol] 3+ [facility] Leukocytes [#/volume] correc venkata for nucleated erythrocytes in Blood by Automated counOrdered By: Colten Fry on 11-02-2022 WBC corrected for nucl RBC Auto (Bld) [#/Vol] 11.7 10*3/uL 4.5-13.5 [facility] Lymphocytes Auto (Bld) [#/Vo l]Ordered By: Colten Fry on 11-02-2022 Lymphocytes (Bld) [#/Vol] 2.3 10*3/uL 1.20-4.8 [facility] Lymphocytes/100 WBC Auto (Bl d)Ordered By: Colten Fry on 11-02-2022 Lymphocytes/100 WBC (Bld) 19.6 % . [facility] MCH Auto (RBC) [Entitic mass ]Ordered By: Colten Fry on 11-02-2022 MCH (RBC) [Entitic mass] 28.4 pg 25.0-35.0 [facility] MCHC Auto (RBC) [Mass/Vol]Or dered By: Colten Fry on 11-02-2022 MCHC (RBC) [Mass/Vol] 34.0 g/dL 31.0-37.0 [facility] MCV Auto (RBC) [Entitic vol] Ordered By: Colten Fry on 11-02-2022 MCV (RBC) [Entitic vol] 83.3 fL 78-102 [facility] Monocytes Auto (Bld) [#/Vol] Ordered By: Colten Fry on 11-02-2022 Monocytes (Bld) [#/Vol] 1.0 10*3/uL 0.1-1.00 [facility] Monocytes/100 WBC Auto (Bld) Ordered By: Colten Fry on 11-02-2022 Monocytes/100 WBC (Bld) 8.5 % . [facility] Neutrophils Auto (Bld) [#/Vo l]Ordered By: Colten Fry on 11-02-2022 Neutrophils (Bld) [#/Vol] 8.1 10*3/uL 1.2-7.7 [facility] Neutrophils/100 WBC Auto (Bl d)Ordered By: Colten Fry on 11-02-2022 Neutrophils/100 WBC (Bld) 69.3 % . [facility] Nitrite Test strip Ql (U)Ord ered By: Colten Fry on 11-02-2022 Nitrite Ql (U) Negative Negative [facility] No Panel InformationOrdered By: Colten Fry on 11-02-2022 9-19 [LPF] 0-8 [facility] Negative Negative [facility] > 60 mL/Min [facility] 100.26 [facility] No Panel InformationOrdered By: Robert Bolanos on 11-02-2022 2.6 mg/dL 1.6-2.6 [facility] Nucleated erythrocytes [Pres ence] in Blood by Automated countOrdered By: Colten Fry on 11-02-2022 Nucleated RBC Auto Ql (Bld) 0.1 /100{WBC} 0-0.5 [facility] Phencyclidine Screen Ql (U)O rdered By: Colten Fry on 11-02-2022 Phencyclidine Ql (U) Negative Negative [facility] Platelet mean volume Auto (B ld) [Entitic vol]Ordered By: Colten Fry on 11-02-2022 Platelet mean volume (Bld) [Entitic vol] 7.9 fL 6.3-10.7 [facility] Platelets Auto (Bld) [#/Vol] Ordered By: Colten Fry on 11-02-2022 Platelets (Bld) [#/Vol] 292 10*3/uL 150-450 [facility] Protein Auto test strip (U) [Mass/Vol]Ordered By: Colten Fry on 11-02-2022 Protein (U) [Mass/Vol] 30 mg[facility] [Mass/volume] in Ser um or PlasmaOrdered By: Colten Fry on 11-02-2022 Protein [Mass/Vol] 7.9 g/dL 6.1-7.9 [facility] RBC Auto (Bld) [#/Vol]Ordere d By: Colten Fry on 11-02-2022 RBC (Bld) [#/Vol] 5.43 10*6/uL 4.10-5.10 [facility] Serum or plasma alanine florez otransferase measurement without P-5'-P (enzymatic activiOrdered By: Colten Fry on 11-02-2022 ALT No additional P-5'-P [Catalytic activity/Vol] 20 U/L 10-60 [facility] Serum or plasma albumin/glob ulin mass ratioOrdered By: Colten Fry on 11-02-2022 Albumin/Globulin [Mass ratio] 1.5 {ratio} [facility] Serum or plasma alkaline justin sphatase measurement (enzymatic activity/volume)Ordered By: Colten Fry on 11-02-2022 ALP [Catalytic activity/Vol] 65 U/L 32-92 [facility] Serum or plasma anion gap de terminationOrdered By: Colten Fry on 11-02-2022 Anion gap [Moles/Vol] 14.6 mmol/L 6.0-15.0 [facility] Serum or plasma aspartate am inotransferase measurement (enzymatic activity/volume)Ordered By: Colten Fry on 11-02-2022 AST [Catalytic activity/Vol] 19 U/L 10-42 [facility] Serum or plasma calcium tammy urement (mass/volume)Ordered By: Colten Fry on 11-02-2022 Calcium [Mass/Vol] 9.6 mg/dL 8.2-10.2 [facility] Serum or plasma chloride judy surement (moles/volume)Ordered By: Colten Fry on 11-02-2022 Chloride [Moles/Vol] 95 mmol/L 95-114 [facility] Serum or plasma creatinine m easurement with calculation of estimated glomerular filtrOrdered By: Colten Fry on 11-02-2022 Creatinine and Glomerular filtration rate.predicted panel (S/P/Bld) 0.88 mg/dL 0.44-1.03 [facility] Serum or plasma glucose tammy urement (mass/volume)Ordered By: Colten Fry on 11-02-2022 Glucose [Mass/Vol] 95 mg/dL 70-100 [facility] Serum or plasma potassium me asurement (moles/volume)Ordered By: Colten Fry on 11-02-2022 Potassium [Moles/Vol] 2.9 mmol/L 3.5-5.1 [facility] Serum or plasma sodium measu rement (moles/volume)Ordered By: Colten Fry on 11-02-2022 Sodium [Moles/Vol] 134 mmol/L 136-146 [facility] Serum or plasma total biliru bin measurement (mass/volume)Ordered By: Colten Fry on 11-02-2022 Bilirubin [Mass/Vol] 1.8 mg/dL 0.3-1.2 [facility] Serum or plasma total carbon dioxide measurement (moles/volume)Ordered By: Colten Fry on 11-02-2022 CO2 [Moles/Vol] 27.3 mmol/L 22.0-30.0 [facility] Serum or plasma urea nitroge n measurement (mass/volume)Ordered By: Colten Fry on 11-02-2022 Urea nitrogen [Mass/Vol] 24 mg/dL 9-23 [facility] Specific gravity Auto test s trip (U) [Rel density]Ordered By: Colten Fry on 11-02-2022 Specific gravity (U) [Rel density] 1.025 1.001-1.[address] [facility] Squamous epithelial cells de tection in urine sediment by light microscopyOrdered By: Colten Fry on 11-02-2022 Epithelial cells.squamous LM Ql (Urine sed) 10-19 [HPF] 0-2 [facility] Urine bacteria detection by automated methodOrdered By: Colten Fry on 11-02-2022 Bacteria Auto Ql (U) None seen None Seen [facility] Urine clarity by refractomet ry automatedOrdered By: Colten Fry on 11-02-2022 Clarity Refractometry automated (U) Cloudy Clear [facility] Urine cocaine detectionOrder ed By: Colten Fry on 11-02-2022 Cocaine Ql (U) Negative Negative [facility] Urine culture routineOrdered By: Colten Fry on 11-02-2022 Bacteria identified Cx Nom (U) [address] [facility] Urine culture routineOrdered By: Art Bianchi on 11-02-2022 Bacteria identified Cx Nom (U) [address] [facility] Urine glucose measurement by automated test strip (mass/volume)Ordered By: Colten Fry on 11-02-2022 Glucose Auto test strip (U) [Mass/Vol] Normal mg/dL Normal [facility] Urine hemoglobin detection b y automated test stripOrdered By: Colten Fry on 11-02-2022 Hemoglobin Auto test strip Ql (U) 3+ Negative [facility] Urine leukocyte esterase det ection by automated test stripOrdered By: Colten Fry on 11-02-2022 Leukocyte esterase Auto test strip Ql (U) 2+ Negative [facility] Urobilinogen Auto test strip (U) [Mass/Vol]Ordered By: Colten Fry on 11-02-2022 Urobilinogen (U) [Mass/Vol] Normal mg/dL Normal [facility] WBC Auto (Bld) [#/Vol]Ordere d By: Colten Fry on 11-02-2022 WBC (Bld) [#/Vol] 11.7 10*3/uL 4.5-13.5 [facility] pH Auto test strip (U)Ordere d By: Colten Fry on 11-02-2022 pH (U) 7.0 [pH] 5.0-9.0 [facility] Albumin [Mass/volume] in Ser um or PlasmaOrdered By: Art Bianchi on 10-31-2022 Albumin [Mass/Vol] 5.1 g/dL 3.2-5.5 [facility] Automated erythrocytes count in urine sediment (number/area)Ordered By: Art Bianchi on 10-31-2022 RBC Auto (Urine sed) [#/Area] Innumerable [HPF] 0-4 [facility] Automated leukocytes count i n urine sediment (number/area)Ordered By: Art Bianchi on 10-31-2022 WBC Auto (Urine sed) [#/Area] 10-19 [HPF] 0-4 [facility] Basophils Auto (Bld) [#/Vol] Ordered By: Art Bianchi on 10-31-2022 Basophils (Bld) [#/Vol] 0.0 10*3/uL 0.0-0.1 [facility] Basophils/100 WBC Auto (Bld) Ordered By: Art Bianchi on 10-31-2022 Basophils/100 WBC (Bld) 0.3 % . [facility] Bilirubin Test strip Ql (U)O rdered By: Art Bianchi on 10-31-2022 Bilirubin Ql (U) Negative Negative [facility] Color Auto (U)Ordered By: Adrian Bianchi on 10-31-2022 Color (U) Red Yellow [facility] Eosinophils Auto (Bld) [#/Vo l]Ordered By: Art Bianchi on 10-31-2022 Eosinophils (Bld) [#/Vol] 0.1 10*3/uL 0.0-0.7 [facility] Eosinophils/100 WBC Auto (Bl d)Ordered By: Art Bianchi on 10-31-2022 Eosinophils/100 WBC (Bld) 1.0 % . [facility] Erythrocyte distribution wid th Auto (RBC) [Ratio]Ordered By: Art Bianchi on 10-31-2022 Erythrocyte distribution width (RBC) [Ratio] 14.0 % 11.9-15.3 [facility] Estimated glomerular filtrat ion rate (GFR) non- AmericanOrdered By: Art Bianchi on 10-31-2022 GFR/1.73 sq M.predicted among non-blacks MDRD (S/P/Bld) [Vol rate/Area] > 60 mL/Min [facility] Globulin Calc (S) [Mass/Vol] Ordered By: Art Bianchi on 10-31-2022 Globulin (S) [Mass/Vol] 3.1 g/dL [facility] HCG ( test) IA.rapi d Ql (U)Ordered By: Art Bianchi on 10-31-2022 HCG ( test) Ql (U) Negative [facility] Hematocrit Auto (Bld) [Volum e fraction]Ordered By: Art Bianchi on 10-31-2022 Hematocrit (Bld) [Volume fraction] 45.0 % 36.0-46.0 [facility] Hemoglobin [Mass/volume] in BloodOrdered By: Art Bianchi on 10-31-2022 Hemoglobin (Bld) [Mass/Vol] 15.2 g/dL 12.0-16.0 [facility] Ketones Auto test strip (U) [Mass/Vol]Ordered By: Art Bianchi on 10-31-2022 Ketones (U) [Mass/Vol] 3+ Negative Fi [facility] Leukocytes [#/volume] correc venkata for nucleated erythrocytes in Blood by Automated counOrdered By: Art Bianchi on 10-31-2022 WBC corrected for nucl RBC Auto (Bld) [#/Vol] 14.0 10*3/uL 4.5-13.5 [facility] Lymphocytes Auto (Bld) [#/Vo l]Ordered By: Art Bianchi on 10-31-2022 Lymphocytes (Bld) [#/Vol] 2.2 10*3/uL 1.20-4.8 [facility] Lymphocytes/100 WBC Auto (Bl d)Ordered By: Art Bianchi on 10-31-2022 Lymphocytes/100 WBC (Bld) 15.5 % . [facility] MCH Auto (RBC) [Entitic mass ]Ordered By: Art Bianchi on 10-31-2022 MCH (RBC) [Entitic mass] 28.6 pg 25.0-35.0 [facility] MCHC Auto (RBC) [Mass/Vol]Or dered By: Art Bianchi on 10-31-2022 MCHC (RBC) [Mass/Vol] 33.7 g/dL 31.0-37.0 [facility] MCV Auto (RBC) [Entitic vol] Ordered By: Art Bianchi on 10-31-2022 MCV (RBC) [Entitic vol] 85.0 fL 78-102 [facility] Monocyte distribution width [Entitic volume] in Blood by AutomatedOrdered By: Art Bianchi on 10-31-2022 Monocyte distribution width Auto (Bld) [Entitic vol] 14.69 % 0.00-20.00 [facility] Monocytes Auto (Bld) [#/Vol] Ordered By: Art Bianchi on 10-31-2022 Monocytes (Bld) [#/Vol] 1.3 10*3/uL 0.1-1.00 [facility] Monocytes/100 WBC Auto (Bld) Ordered By: Art Bianchi on 10-31-2022 Monocytes/100 WBC (Bld) 9.1 % . [facility] Neutrophils Auto (Bld) [#/Vo l]Ordered By: Art Bianchi on 10-31-2022 Neutrophils (Bld) [#/Vol] 10.4 10*3/uL 1.2-7.7 [facility] Neutrophils/100 WBC Auto (Bl d)Ordered By: Art Bianchi on 10-31-2022 Neutrophils/100 WBC (Bld) 74.1 % . [facility] Nitrite Test strip Ql (U)Ord ered By: Art Bianchi on 10-31-2022 Nitrite Ql (U) Negative Negative [facility] No Panel InformationOrdered By: Art Bianchi on 10-31-2022 0-8 [LPF] 0-8 [facility] > 60 mL/Min [facility] 29.0 U/L 22-51 [facility] 102.97 [facility] Nucleated erythrocytes [Pres ence] in Blood by Automated countOrdered By: Art Bianchi on 10-31-2022 Nucleated RBC Auto Ql (Bld) 0.1 /100{WBC} 0-0.5 [facility] Platelet mean volume Auto (B ld) [Entitic vol]Ordered By: Art Bianchi on 10-31-2022 Platelet mean volume (Bld) [Entitic vol] 8.3 fL 6.3-10.7 [facility] Platelets Auto (Bld) [#/Vol] Ordered By: Art Bianchi on 10-31-2022 Platelets (Bld) [#/Vol] 337 10*3/uL 150-450 [facility] Protein Auto test strip (U) [Mass/Vol]Ordered By: Art Bianchi on 10-31-2022 Protein (U) [Mass/Vol] 100 mg/dL Negative Fi [facility] Protein [Mass/volume] in Ser um or PlasmaOrdered By: Art Bianchi on 10-31-2022 Protein [Mass/Vol] 8.2 g/dL 6.1-7.9 [facility] RBC Auto (Bld) [#/Vol]Ordere d By: Art Bianchi on 10-31-2022 RBC (Bld) [#/Vol] 5.29 10*6/uL 4.10-5.10 [facility] Serum or plasma alanine florez otransferase measurement without P-5'-P (enzymatic activiOrdered By: Art Bianchi on 10-31-2022 ALT No additional P-5'-P [Catalytic activity/Vol] 25 U/L 10-60 [facility] Serum or plasma albumin/glob ulin mass ratioOrdered By: Art Bianchi on 10-31-2022 Albumin/Globulin [Mass ratio] 1.6 {ratio} [facility] Serum or plasma alkaline justin sphatase measurement (enzymatic activity/volume)Ordered By: Art Bianchi on 10-31-2022 ALP [Catalytic activity/Vol] 62 U/L 32-92 [facility] Serum or plasma anion gap de terminationOrdered By: Art Bianchi on 10-31-2022 Anion gap [Moles/Vol] 16.8 mmol/L 6.0-15.0 [facility] Serum or plasma aspartate am inotransferase measurement (enzymatic activity/volume)Ordered By: Art Bianchi on 10-31-2022 AST [Catalytic activity/Vol] 25 U/L 10-42 [facility] Serum or plasma calcium tammy urement (mass/volume)Ordered By: Art Bianchi on 10-31-2022 Calcium [Mass/Vol] 9.9 mg/dL 8.2-10.2 [facility] Serum or plasma chloride judy surement (moles/volume)Ordered By: Art Bianchi on 10-31-2022 Chloride [Moles/Vol] 96 mmol/L 95-114 [facility] Serum or plasma creatinine m easurement with calculation of estimated glomerular filtrOrdered By: Art Bianchi on 10-31-2022 Creatinine and Glomerular filtration rate.predicted panel (S/P/Bld) 0.89 mg/dL 0.44-1.03 [facility] Serum or plasma glucose tammy urement (mass/volume)Ordered By: Art Bianchi on 10-31-2022 Glucose [Mass/Vol] 120 mg/dL 70-100 [facility] Serum or plasma potassium me asurement (moles/volume)Ordered By: Art Bianchi on 10-31-2022 Potassium [Moles/Vol] 3.2 mmol/L 3.5-5.1 [facility] Serum or plasma sodium measu rement (moles/volume)Ordered By: Art Bianchi on 10-31-2022 Sodium [Moles/Vol] 132 mmol/L 136-146 [facility] Serum or plasma total biliru bin measurement (mass/volume)Ordered By: Art Bianchi on 10-31-2022 Bilirubin [Mass/Vol] 1.7 mg/dL 0.3-1.2 [facility] Serum or plasma total carbon dioxide measurement (moles/volume)Ordered By: Art Bianchi on 10-31-2022 CO2 [Moles/Vol] 22.4 mmol/L 22.0-30.0 [facility] Serum or plasma urea nitroge n measurement (mass/volume)Ordered By: Art Bianchi on 10-31-2022 Urea nitrogen [Mass/Vol] 28 mg/dL 9-23 [facility] Specific gravity Auto test s trip (U) [Rel density]Ordered By: Art Bianchi on 10-31-2022 Specific gravity (U) [Rel density] 1.030 1.001-1.[address] [facility] Squamous epithelial cells de tection in urine sediment by light microscopyOrdered By: Art Bianchi on 10-31-2022 Epithelial cells.squamous LM Ql (Urine sed) 10-19 [HPF] 0-2 [facility] Urine bacteria detection by automated methodOrdered By: Art Bianchi on 10-31-2022 Bacteria Auto Ql (U) None seen None Seen [facility] Urine clarity by refractomet ry automatedOrdered By: Art Bianchi on 10-31-2022 Clarity Refractometry automated (U) Cloudy Clear [facility] Urine culture routineOrdered By: Art Bianchi on 10-31-2022 Bacteria identified Cx Nom (U) [address] [facility] Urine glucose measurement by automated test strip (mass/volume)Ordered By: Art Bianchi on 10-31-2022 Glucose Auto test strip (U) [Mass/Vol] Normal mg/dL Normal [facility] Urine hemoglobin detection b y automated test stripOrdered By: Art Bianchi on 10-31-2022 Hemoglobin Auto test strip Ql (U) 3+ Negative [facility] Urine leukocyte esterase det ection by automated test stripOrdered By: Art Bianchi on 10-31-2022 Leukocyte esterase Auto test strip Ql (U) 2+ Negative [facility] Urobilinogen Auto test strip (U) [Mass/Vol]Ordered By: Art Bianchi on 10-31-2022 Urobilinogen (U) [Mass/Vol] Normal mg/dL Normal [facility] WBC Auto (Bld) [#/Vol]Ordere d By: Art Bianchi on 10-31-2022 WBC (Bld) [#/Vol] 14.0 10*3/uL 4.5-13.5 [facility] pH Auto test strip (U)Ordere d By: Art Bianchi on 10-31-2022 pH (U) 6.5 [pH] 5.0-9.0 [facility] Basophils Auto (Bld) [#/Vol] Ordered By: Ravi Arguello on 10-29-2022 Basophils (Bld) [#/Vol] 0.0 10*3/uL 0.0-0.1 [facility] Basophils/100 WBC Auto (Bld) Ordered By: Ravi Arguello on 10-29-2022 Basophils/100 WBC (Bld) 0.3 % . [facility] Body fluid albumin measureme nt (mass/volume)Ordered By: Ravi Arguello on 10-29-2022 Albumin (Body fld) [Mass/Vol] 5.2 g/dL 3.2-5.5 [facility] Creatinine and Glomerular fi ltration rate.predicted panel (S/P/Bld)Ordered By: Ravi Arguello on 10-29-2022 Creatinine [Mass/Vol] 0.85 mg/dL 0.44-1.03 [facility] Direct bilirubin measurement Ordered By: Ravi Arguello on 10-29-2022 Bilirubin.direct [Mass/Vol] 0.1 mg/dL 0.0-0.4 [facility] Eosinophils Auto (Bld) [#/Vo l]Ordered By: Ravi Arguello on 10-29-2022 Eosinophils (Bld) [#/Vol] 0.0 10*3/uL 0.0-0.7 [facility] Eosinophils/100 WBC Auto (Bl d)Ordered By: Ravi Arguello on 10-29-2022 Eosinophils/100 WBC (Bld) 0.1 % . [facility] Erythrocyte distribution wid th Auto (RBC) [Ratio]Ordered By: Ravi Arguello on 10-29-2022 Erythrocyte distribution width (RBC) [Ratio] 14.4 % 11.9-15.3 [facility] Estimated glomerular filtrat ion rate (GFR) non- AmericanOrdered By: Ravi Arguello on 10-29-2022 GFR/1.73 sq M.predicted among non-blacks MDRD (S/P/Bld) [Vol rate/Area] > 60 mL/Min [facility] Globulin Calc (S) [Mass/Vol] Ordered By: Ravi Arguello on 10-29-2022 Globulin (S) [Mass/Vol] 3.7 g/dL [facility] Hematocrit Auto (Bld) [Volum e fraction]Ordered By: Ravi Arguello on 10-29-2022 Hematocrit (Bld) [Volume fraction] 42.9 % 36.0-46.0 [facility] Hemoglobin [Mass/volume] in BloodOrdered By: Ravi Arguello on 10-29-2022 Hemoglobin (Bld) [Mass/Vol] 14.3 g/dL 12.0-16.0 [facility] Laboratory - Chemistry and C hemistry - challengeOrdered By: Ravi Arguello on 10-29-2022 Lipase [Catalytic activity/Vol] 25.0 U/L 22-51 [facility] Leukocytes [#/volume] correc venkata for nucleated erythrocytes in Blood by Automated counOrdered By: Ravi Arguello on 10-29-2022 WBC corrected for nucl RBC Auto (Bld) [#/Vol] 13.7 10*3/uL 4.5-13.5 [facility] Lymphocytes Auto (Bld) [#/Vo l]Ordered By: Ravi Arguello on 10-29-2022 Lymphocytes (Bld) [#/Vol] 1.7 10*3/uL 1.20-4.8 [facility] Lymphocytes/100 WBC Auto (Bl d)Ordered By: Ravi Arguello on 10-29-2022 Lymphocytes/100 WBC (Bld) 12.4 % . [facility] MCH Auto (RBC) [Entitic mass ]Ordered By: Ravi Arguello on 10-29-2022 MCH (RBC) [Entitic mass] 28.4 pg 25.0-35.0 [facility] MCHC Auto (RBC) [Mass/Vol]Or dered By: Ravi Arguello on 10-29-2022 MCHC (RBC) [Mass/Vol] 33.3 g/dL 31.0-37.0 [facility] MCV Auto (RBC) [Entitic vol] Ordered By: Ravi Arguello on 10-29-2022 MCV (RBC) [Entitic vol] 85.1 fL 78-102 [facility] Monocyte distribution width [Entitic volume] in Blood by AutomatedOrdered By: Ravi Arguello on 10-29-2022 Monocyte distribution width Auto (Bld) [Entitic vol] 16.57 % 0.00-20.00 [facility] Monocytes Auto (Bld) [#/Vol] Ordered By: Ravi Arguello on 10-29-2022 Monocytes (Bld) [#/Vol] 0.9 10*3/uL 0.1-1.00 [facility] Monocytes/100 WBC Auto (Bld) Ordered By: Ravi Arguello on 10-29-2022 Monocytes/100 WBC (Bld) 6.8 % . [facility] Neutrophils Auto (Bld) [#/Vo l]Ordered By: Ravi Arguello on 10-29-2022 Neutrophils (Bld) [#/Vol] 11.0 10*3/uL 1.2-7.7 [facility] Neutrophils/100 WBC Auto (Bl d)Ordered By: Ravi Arguello on 10-29-2022 Neutrophils/100 WBC (Bld) 80.4 % . [facility] No Panel InformationOrdered By: Ravi Arguello on 10-29-2022 Estimated GFR () > 60 mL/Min [facility] Comment on above: GFR estimated refere nce range: According to KDOQI guidelines, <60 ml/min/1.73m2 is sufficient to diagnose a patient with chronic kidney disease. Pharmacy Creatinine Clearance (Chem 105.83 [facility] > 60 mL/Min [facility] 25.0 U/L 22-51 [facility] 105.83 [facility] Nucleated erythrocytes [Pres ence] in Blood by Automated countOrdered By: Ravi Arguello on 10-29-2022 Nucleated RBC Auto Ql (Bld) 0.0 /100{WBC} 0-0.5 [facility] Platelet mean volume Auto (B ld) [Entitic vol]Ordered By: Ravi Arguello on 10-29-2022 Platelet mean volume (Bld) [Entitic vol] 8.4 fL 6.3-10.7 [facility] Platelets Auto (Bld) [#/Vol] Ordered By: Ravi Arguello on 10-29-2022 Platelets (Bld) [#/Vol] 355 10*3/uL 150-450 [facility] Protein [Mass/volume] in Ser um or PlasmaOrdered By: Ravi Arguello on 10-29-2022 Protein [Mass/Vol] 8.9 g/dL 6.1-7.9 [facility] RBC Auto (Bld) [#/Vol]Ordere d By: Ravi Arguello on 10-29-2022 RBC (Bld) [#/Vol] 5.04 10*6/uL 4.10-5.10 [facility] Serum or plasma alanine florez otransferase measurement without P-5'-P (enzymatic activiOrdered By: Ravi Arguello on 10-29-2022 ALT No additional P-5'-P [Catalytic activity/Vol] 24 U/L 10-60 [facility] Serum or plasma albumin/glob ulin mass ratioOrdered By: Ravi Arguello on 10-29-2022 Albumin/Globulin [Mass ratio] 1.4 {ratio} [facility] Serum or plasma alkaline justin sphatase measurement (enzymatic activity/volume)Ordered By: Ravi Arguello on 10-29-2022 ALP [Catalytic activity/Vol] 68 U/L 32-92 [facility] Serum or plasma anion gap de terminationOrdered By: Ravi Arguello on 10-29-2022 Anion gap [Moles/Vol] 19.9 mmol/L 6.0-15.0 [facility] Serum or plasma aspartate am inotransferase measurement (enzymatic activity/volume)Ordered By: Ravi Arguello on 10-29-2022 AST [Catalytic activity/Vol] 20 U/L 10-42 [facility] Serum or plasma calcium tammy urement (mass/volume)Ordered By: Ravi Arguello on 10-29-2022 Calcium [Mass/Vol] 10.4 mg/dL 8.2-10.2 [facility] Serum or plasma chloride judy surement (moles/volume)Ordered By: Ravi Arguello on 10-29-2022 Chloride [Moles/Vol] 100 mmol/L 95-114 [facility] Serum or plasma creatinine m easurement with calculation of estimated glomerular filtrOrdered By: Ravi Arguello on 10-29-2022 Creatinine and Glomerular filtration rate.predicted panel (S/P/Bld) 0.85 mg/dL 0.44-1.03 [facility] Serum or plasma glucose tammy urement (mass/volume)Ordered By: Ravi Arguello on 10-29-2022 Glucose [Mass/Vol] 114 mg/dL 70-100 [facility] Comment on above: ADA recommended refe rence rangeRandom Glucose Reference Range is dependent on time and content of last meal. Glucose of more than 200 mg/dL in a nonstressed, ambulatory subject supports the diagnosis of Diabetes Mellitus. Serum or plasma non-glucuron idated bilirubin measurement (mass/volume)Ordered By: Ravi Arguello on 10-29-2022 Bilirubin.indirect [Mass/Vol] 1.1 mg/dL [facility] Serum or plasma potassium me asurement (moles/volume)Ordered By: Ravi Arguello on 10-29-2022 Potassium [Moles/Vol] 3.3 mmol/L 3.5-5.1 [facility] Serum or plasma sodium measu rement (moles/volume)Ordered By: Ravi Arguello on 10-29-2022 Sodium [Moles/Vol] 137 mmol/L 136-146 [facility] Serum or plasma total biliru bin measurement (mass/volume)Ordered By: Ravi Arguello on 10-29-2022 Bilirubin [Mass/Vol] 1.2 mg/dL 0.3-1.2 [facility] Serum or plasma total carbon dioxide measurement (moles/volume)Ordered By: Ravi Arguello on 10-29-2022 CO2 [Moles/Vol] 20.4 mmol/L 22.0-30.0 [facility] Serum or plasma urea nitroge n measurement (mass/volume)Ordered By: Ravi Arguello on 10-29-2022 Urea nitrogen [Mass/Vol] 21 mg/dL 9-23 [facility] WBC Auto (Bld) [#/Vol]Ordere d By: Ravi Arguello on 10-29-2022 WBC (Bld) [#/Vol] 13.7 10*3/uL 4.5-13.5 [facility] Basophils Auto (Bld) [#/Vol] Ordered By: Modesta Chand on 08-27-2022 Basophils (Bld) [#/Vol] 0.0 10*3/uL 0.0-0.1 [facility] Basophils/100 WBC Auto (Bld) Ordered By: Modesta Chand on 08-27-2022 Basophils/100 WBC (Bld) 0.3 % . [facility] Body fluid albumin measureme nt (mass/volume)Ordered By: Modesta Chand on 08-27-2022 Albumin (Body fld) [Mass/Vol] 4.7 g/dL 3.2-5.5 [facility] Creatinine and Glomerular fi ltration rate.predicted panel (S/P/Bld)Ordered By: Modesta Chand on 08-27-2022 Creatinine [Mass/Vol] 0.90 mg/dL 0.44-1.03 [facility] Eosinophils Auto (Bld) [#/Vo l]Ordered By: Modesta Chand on 08-27-2022 Eosinophils (Bld) [#/Vol] 0.3 10*3/uL 0.0-0.7 [facility] Eosinophils/100 WBC Auto (Bl d)Ordered By: Modesta Chand on 08-27-2022 Eosinophils/100 WBC (Bld) 2.2 % . [facility] Erythrocyte distribution wid th Auto (RBC) [Ratio]Ordered By: Modesta Chand on 08-27-2022 Erythrocyte distribution width (RBC) [Ratio] 14.0 % 11.9-15.3 [facility] Estimated glomerular filtrat ion rate (GFR) non- AmericanOrdered By: Modesta Chand on 08-27-2022 GFR/1.73 sq M.predicted among non-blacks MDRD (S/P/Bld) [Vol rate/Area] > 60 mL/Min [facility] Globulin Calc (S) [Mass/Vol] Ordered By: Modesta Chand on 08-27-2022 Globulin (S) [Mass/Vol] 2.5 g/dL [facility] Hematocrit Auto (Bld) [Volum e fraction]Ordered By: Modesta Chand on 08-27-2022 Hematocrit (Bld) [Volume fraction] 46.5 % 36.0-46.0 [facility] Hemoglobin [Mass/volume] in BloodOrdered By: Modesta Chand on 08-27-2022 Hemoglobin (Bld) [Mass/Vol] 15.6 g/dL 12.0-16.0 [facility] Laboratory - Chemistry and C hemistry - challengeOrdered By: Modesta Chand on 08-27-2022 Lipase [Catalytic activity/Vol] 27.0 U/L 22-51 [facility] Laboratory - Hematology and Cell countsOrdered By: Modesta Chand on 08-27-2022 Nucleated RBC/100 WBC (Bld) [Ratio] 0.1 % 0-0.5 [facility] Leukocytes [#/volume] in Blo od by Automated countOrdered By: Modesta Chand on 08-27-2022 WBC (Bld) [#/Vol] 13.4 10*3/uL 4.5-13.5 [facility] Lymphocytes Auto (Bld) [#/Vo l]Ordered By: Modesta Chand on 08-27-2022 Lymphocytes (Bld) [#/Vol] 3.1 10*3/uL 1.20-4.8 [facility] Lymphocytes/100 WBC Auto (Bl d)Ordered By: Modesta Chand on 08-27-2022 Lymphocytes/100 WBC (Bld) 22.9 % . [facility] MCH Auto (RBC) [Entitic mass ]Ordered By: Modesta Chand on 08-27-2022 MCH (RBC) [Entitic mass] 28.4 pg 25.0-35.0 [facility] MCHC Auto (RBC) [Mass/Vol]Or dered By: Modesta Chand on 08-27-2022 MCHC (RBC) [Mass/Vol] 33.5 g/dL 31.0-37.0 [facility] MCV Auto (RBC) [Entitic vol] Ordered By: Modesta Chand on 08-27-2022 MCV (RBC) [Entitic vol] 84.8 fL 78-102 [facility] Monocytes Auto (Bld) [#/Vol] Ordered By: Modesta Chand on 08-27-2022 Monocytes (Bld) [#/Vol] 1.2 10*3/uL 0.1-1.00 [facility] Monocytes/100 WBC Auto (Bld) Ordered By: Modesta Chand on 08-27-2022 Monocytes/100 WBC (Bld) 9.1 % . [facility] Neutrophils Auto (Bld) [#/Vo l]Ordered By: Modesta Chand on 08-27-2022 Neutrophils (Bld) [#/Vol] 8.8 10*3/uL 1.2-7.7 [facility] Neutrophils/100 WBC Auto (Bl d)Ordered By: Modesta Chand on 08-27-2022 Neutrophils/100 WBC (Bld) 65.5 % . [facility] No Panel InformationOrdered By: Modesta Chand on 08-27-2022 Estimated GFR () > 60 mL/Min [facility] Comment on above: GFR estimated refere nce range: According to KDOQI guidelines, <60 ml/min/1.73m2 is sufficient to diagnose a patient with chronic kidney disease. Pharmacy Creatinine Clearance (Chem N/A [facility] 13.4 10*3/uL 4.5-13.5 [facility] 0.1 % 0-0.5 [facility] > 60 mL/Min [facility] 27.0 U/L 22-51 [facility] N/A [facility] Platelet mean volume Auto (B ld) [Entitic vol]Ordered By: Modesta Chand on 08-27-2022 Platelet mean volume (Bld) [Entitic vol] 8.9 fL 6.3-10.7 [facility] Platelets Auto (Bld) [#/Vol] Ordered By: Modesta Chand on 08-27-2022 Platelets (Bld) [#/Vol] 373 10*3/uL 150-450 [facility] Protein [Mass/volume] in Ser um or PlasmaOrdered By: Modesta Chand on 08-27-2022 Protein [Mass/Vol] 7.2 g/dL 6.1-7.9 [facility] RBC Auto (Bld) [#/Vol]Ordere d By: Modesta Chand on 08-27-2022 RBC (Bld) [#/Vol] 5.49 10*6/uL 4.10-5.10 [facility] Serum or plasma alanine florez otransferase measurement without P-5'-P (enzymatic activiOrdered By: Modesta Chand on 08-27-2022 ALT No additional P-5'-P [Catalytic activity/Vol] 20 U/L 10-60 [facility] Serum or plasma albumin/glob ulin mass ratioOrdered By: Modesta Chand on 08-27-2022 Albumin/Globulin [Mass ratio] 1.9 {ratio} [facility] Serum or plasma alkaline justin sphatase measurement (enzymatic activity/volume)Ordered By: Modesta Chand on 08-27-2022 ALP [Catalytic activity/Vol] 63 U/L 32-92 [facility] Serum or plasma amylase tammy urement (enzymatic activity/volume)Ordered By: Modesta Chand on 08-27-2022 Amylase [Catalytic activity/Vol] 25 U/L 28-100 [facility] Serum or plasma anion gap de terminationOrdered By: Modesta Chand on 08-27-2022 Anion gap [Moles/Vol] 22.5 mmol/L 6.0-15.0 [facility] Serum or plasma aspartate am inotransferase measurement (enzymatic activity/volume)Ordered By: Modesta Chand on 08-27-2022 AST [Catalytic activity/Vol] 18 U/L 10-42 [facility] Serum or plasma calcium tammy urement (mass/volume)Ordered By: Modesta Chand on 08-27-2022 Calcium [Mass/Vol] 10.1 mg/dL 8.2-10.2 [facility] Serum or plasma chloride judy surement (moles/volume)Ordered By: Modesta Chand on 08-27-2022 Chloride [Moles/Vol] 89 mmol/L 95-114 [facility] Serum or plasma creatinine m easurement with calculation of estimated glomerular filtrOrdered By: Modesta Chand on 08-27-2022 Creatinine and Glomerular filtration rate.predicted panel (S/P/Bld) 0.90 mg/dL 0.44-1.03 [facility] Serum or plasma glucose tammy urement (mass/volume)Ordered By: Modesta Chand on 08-27-2022 Glucose [Mass/Vol] 76 mg/dL 70-100 [facility] Comment on above: ADA recommended refe rence rangeRandom Glucose Reference Range is dependent on time and content of last meal. Glucose of more than 200 mg/dL in a nonstressed, ambulatory subject supports the diagnosis of Diabetes Mellitus. Serum or plasma potassium me asurement (moles/volume)Ordered By: Modesta Chand on 08-27-2022 Potassium [Moles/Vol] 3.7 mmol/L 3.5-5.1 [facility] Serum or plasma sodium measu rement (moles/volume)Ordered By: Modesta Chand on 08-27-2022 Sodium [Moles/Vol] 131 mmol/L 136-146 [facility] Serum or plasma total biliru bin measurement (mass/volume)Ordered By: Modesta Chand on 09-30-2022 Bilirubin [Mass/Vol] 1.6 mg/dL 0.3-1.2 [facility] Comment on above: Samples from patient s who have taken Naproxen have shown spurious elevation in Total Bilirubin levels. A metabolite of Naproxen, O-desmethylnaproxen, has been shown to interfere with the Nava-Carolynn method for measuring Total Bilirubin. Serum or plasma total carbon dioxide measurement (moles/volume)Ordered By: Modesta Chand on 08-27-2022 CO2 [Moles/Vol] 23.2 mmol/L 22.0-30.0 [facility] Serum or plasma urea nitroge n measurement (mass/volume)Ordered By: Modesta Chand on 08-27-2022 Urea nitrogen [Mass/Vol] 15 mg/dL 08-20 [facility] Basophils Auto (Bld) [#/Vol] Ordered By: Gregorio Carey on 08-22-2022 Basophils (Bld) [#/Vol] 0.0 10*3/uL 0.0-0.1 [facility] Basophils/100 WBC Auto (Bld) Ordered By: Gregorio Carey on 08-22-2022 Basophils/100 WBC (Bld) 0.3 % . [facility] Blood hemoglobin measurement (mass/volume)Ordered By: Gregorio Carey on 08-22-2022 Hemoglobin (Bld) [Mass/Vol] 13.1 g/dL 12.0-16.0 [facility] Blood leukocytes automated c ount (number/volume)Ordered By: Gregorio Carey on 08-22-2022 WBC (Bld) [#/Vol] 9.7 10*3/uL 4.5-13.5 [facility] Creatinine and Glomerular fi ltration rate.predicted panel (S/P/Bld)Ordered By: Gregorio Carey on 08-22-2022 Creatinine [Mass/Vol] 0.75 mg/dL 0.44-1.03 [facility] Eosinophils Auto (Bld) [#/Vo l]Ordered By: Gregorio Carey on 08-22-2022 Eosinophils (Bld) [#/Vol] 0.1 10*3/uL 0.0-0.7 [facility] Eosinophils/100 WBC Auto (Bl d)Ordered By: Gregorio Carey on 08-22-2022 Eosinophils/100 WBC (Bld) 1.0 % . [facility] Erythrocyte distribution wid th Auto (RBC) [Ratio]Ordered By: Gregorio Carey on 08-22-2022 Erythrocyte distribution width (RBC) [Ratio] 14.1 % 11.9-15.3 [facility] Estimated glomerular filtrat ion rate (GFR) non- AmericanOrdered By: Gregorio Carey on 08-22-2022 GFR/1.73 sq M.predicted among non-blacks MDRD (S/P/Bld) [Vol rate/Area] > 60 mL/Min [facility] Hematocrit Auto (Bld) [Volum e fraction]Ordered By: Gregorio Carey on 08-22-2022 Hematocrit (Bld) [Volume fraction] 39.6 % 36.0-46.0 [facility] Laboratory - Hematology and Cell countsOrdered By: Gregorio Carey on 08-22-2022 Nucleated RBC/100 WBC (Bld) [Ratio] 0.0 % 0-0.5 [facility] Lymphocytes Auto (Bld) [#/Vo l]Ordered By: Gregorio Carey on 08-22-2022 Lymphocytes (Bld) [#/Vol] 2.0 10*3/uL 1.20-4.8 [facility] Lymphocytes/100 WBC Auto (Bl d)Ordered By: Gregorio Carey on 08-22-2022 Lymphocytes/100 WBC (Bld) 20.5 % . [facility] MCH Auto (RBC) [Entitic mass ]Ordered By: Gregorio Carey on 08-22-2022 MCH (RBC) [Entitic mass] 28.0 pg 25.0-35.0 [facility] MCHC Auto (RBC) [Mass/Vol]Or dered By: Gregorio Carey on 08-22-2022 MCHC (RBC) [Mass/Vol] 33.2 g/dL 31.0-37.0 [facility] MCV Auto (RBC) [Entitic vol] Ordered By: Gregorio Carey on 08-22-2022 MCV (RBC) [Entitic vol] 84.5 fL 78-102 [facility] Monocytes Auto (Bld) [#/Vol] Ordered By: Gregorio Carey on 08-22-2022 Monocytes (Bld) [#/Vol] 0.8 10*3/uL 0.1-1.00 [facility] Monocytes/100 WBC Auto (Bld) Ordered By: Gregorio Carey on 08-22-2022 Monocytes/100 WBC (Bld) 8.0 % . [facility] Neutrophils Auto (Bld) [#/Vo l]Ordered By: Gregorio Carey on 08-22-2022 Neutrophils (Bld) [#/Vol] 6.8 10*3/uL 1.2-7.7 [facility] Neutrophils/100 WBC Auto (Bl d)Ordered By: Gregorio Carey on 08-22-2022 Neutrophils/100 WBC (Bld) 70.2 % . [facility] No Panel InformationOrdered By: Gregorio Carey on 08-22-2022 Estimated GFR () > 60 mL/Min [facility] Comment on above: GFR estimated refere nce range: According to KDOQI guidelines, <60 ml/min/1.73m2 is sufficient to diagnose a patient with chronic kidney disease. Pharmacy Creatinine Clearance (Chem 117.26 [facility] 9.7 10*3/uL 4.5-13.5 [facility] 0.0 % 0-0.5 [facility] > 60 mL/Min [facility] 117.26 [facility] Platelet mean volume Auto (B ld) [Entitic vol]Ordered By: Gregorio Carey on 08-22-2022 Platelet mean volume (Bld) [Entitic vol] 8.6 fL 6.3-10.7 [facility] Platelets Auto (Bld) [#/Vol] Ordered By: Gregorio Carey on 08-22-2022 Platelets (Bld) [#/Vol] 246 10*3/uL 150-450 [facility] RBC Auto (Bld) [#/Vol]Ordere d By: Gregoriopierce Carey on 08-22-2022 RBC (Bld) [#/Vol] 4.69 10*6/uL 4.10-5.10 [facility] Serum nuclear antibody titer Ordered By: Gregorio Carey on 08-22-2022 Nuclear Ab (S) [Titer] Negative . [facility] Comment on above: Negative <1:80 Borde rline 1:80 Positive >1:80ICAP nomenclature: [id number] more information about Hep-2 cell patterns useANApatterns.org, the official website for theInternational Consensus on Antinuclear Antibody (EDMOND)Patterns (ICAP).Performed at: [facility] [place] [id number] Director: James Nelson PhD, Phone: [phone] Serum or plasma anion gap de terminationOrdered By: Gregorio Carey on 08-22-2022 Anion gap [Moles/Vol] 17.0 mmol/L 6.0-15.0 [facility] Serum or plasma beta choriog onadotropin measurement (units/volume)Ordered By: Gregorio Carey on 08-22-2022 HCG.beta subunit Qn m[IU]/mL [facility] Comment on above: Approximate Approxim ate [...] on 08-22-2022 Calcium [Mass/Vol] 9.4 mg/dL 8.2-10.2 [facility] Serum or plasma chloride judy surement (moles/volume)Ordered By: Gregorio Carey on 08-22-2022 Chloride [Moles/Vol] 99 mmol/L 95-114 [facility] Serum or plasma creatinine m easurement with calculation of estimated glomerular filtrOrdered By: Gregorio Carey on 08-22-2022 Creatinine and Glomerular filtration rate.predicted panel (S/P/Bld) 0.75 mg/dL 0.44-1.03 [facility] Serum or plasma glucose tammy urement (mass/volume)Ordered By: Gregorio Carey on 08-22-2022 Glucose [Mass/Vol] 90 mg/dL 70-100 [facility] Comment on above: ADA recommended refe [...] on 08-22-2022 Potassium [Moles/Vol] 3.8 mmol/L 3.5-5.1 [facility] Serum or plasma sodium measu rement (moles/volume)Ordered By: Gregorio Carey on 08-22-2022 Sodium [Moles/Vol] 134 mmol/L 136-146 [facility] Serum or plasma total carbon dioxide measurement (moles/volume)Ordered By: Gregorio Carey on 08-22-2022 CO2 [Moles/Vol] 21.8 mmol/L 22.0-30.0 [facility] Serum or plasma urea nitroge n measurement (mass/volume)Ordered By: Gregorio Carey on 08-22-2022 Urea nitrogen [Mass/Vol] 7 mg/dL 08-20 [facility] Urine culture routineOrdered By: Gregorio Carey on 08-22-2022 Bacteria identified Cx Nom (U) [address] [facility] Urine culture routineOrdered By: Gilson Castro on 08-22-2022 Bacteria identified Cx Nom (U) [address] [facility] Urine culture routineOrdered By: Colten Fry on 08-21-2022 Bacteria identified Cx Nom (U) [address] [facility] Amphetamine Screen Ql (U)Ord ered By: Gilson Castro on 08-20-2022 Amphetamines Ql (U) Negative Negative [facility] Automated erythrocytes count in urine sediment (number/area)Ordered By: Gilson Castro on 08-20-2022 RBC Auto (Urine sed) [#/Area] None seen [HPF] 0-4 [facility] Automated leukocytes count i n urine sediment (number/area)Ordered By: Gilson Castro on 08-20-2022 WBC Auto (Urine sed) [#/Area] 1-2 [HPF] 0-4 [facility] Barbiturates [Presence] in U rineOrdered By: Gilson Castro on 08-20-2022 Barbiturates Ql (U) Positive Negative [facility] Basophils Auto (Bld) [#/Vol] Ordered By: Gilson Castro on 08-20-2022 Basophils (Bld) [#/Vol] 0.0 10*3/uL 0.0-0.1 [facility] Basophils/100 WBC Auto (Bld) Ordered By: Gilson Castro on 08-20-2022 Basophils/100 WBC (Bld) 0.4 % . [facility] Benzodiazepines [Presence] i n UrineOrdered By: Gilson Castro on 08-20-2022 Benzodiazepines Ql (U) Negative Negative [facility] Bilirubin Test strip Ql (U)O rdered By: Gilson Castro on 08-20-2022 Bilirubin Ql (U) Negative Negative [facility] Blood anisocytosis detection Ordered By: Gilson Castro on 08-20-2022 Anisocytosis Ql (Bld) Slight [facility] Blood hemoglobin measurement (mass/volume)Ordered By: Gilson Castro on 08-20-2022 Hemoglobin (Bld) [Mass/Vol] 12.1 g/dL 12.0-16.0 [facility] Blood leukocytes automated c ount (number/volume)Ordered By: Gilson Castro on 08-20-2022 WBC (Bld) [#/Vol] 10.9 10*3/uL 4.5-13.5 [facility] COVID-19 Positive/NegativeOr dered By: Ravi Arguello on 08-20-2022 SARS-CoV-2 (COVID-19) N gene JANAK+probe Ql (Resp) Negative Negative [facility] Comment on above: Testing for SARS-CoV -2 by RT-PCR This test was developed and its performance characteristics determined by [employer] ([employer]) and validated at the [facility]. This test has not been FDA [...] developed and its performance characteristics determined by [employer] ([employer]) and validated at the [facility]. This test has not been FDA [...] (COVID-19) Ag IA.rapid Ql (Resp) Negative Negative [facility] Comment on above: This is a duplicate [employer] SARS Antigen (JOSE A) result to be used for statistical tracking purpose only. Cannabinoids [Presence] in U rine by Screen methodOrdered By: Gilson Castro on 08-20-2022 Cannabinoids Screen Ql (U) Positive Negative [facility] Comment on above: These are unconfirme [...] Castro on 08-20-2022 Color (U) Yellow Yellow [facility] Creatinine and Glomerular fi ltration rate.predicted panel (S/P/Bld)Ordered By: Gilson Castro on 08-20-2022 Creatinine [Mass/Vol] 0.65 mg/dL 0.44-1.03 [facility] Eosinophils Auto (Bld) [#/Vo l]Ordered By: Gilson Castro on 08-20-2022 Eosinophils (Bld) [#/Vol] 0.0 10*3/uL 0.0-0.7 [facility] Eosinophils/100 WBC Auto (Bl d)Ordered By: Gilson Castro on 08-20-2022 Eosinophils/100 WBC (Bld) 0.3 % . [facility] Erythrocyte distribution wid th Auto (RBC) [Ratio]Ordered By: Gilson Castro on 08-20-2022 Erythrocyte distribution width (RBC) [Ratio] 13.9 % 11.9-15.3 [facility] Estimated glomerular filtrat ion rate (GFR) non- AmericanOrdered By: Gilson Castro on 08-20-2022 GFR/1.73 sq M.predicted among non-blacks MDRD (S/P/Bld) [Vol rate/Area] > 60 mL/Min [facility] Hematocrit Auto (Bld) [Volum e fraction]Ordered By: Gilson Castro on 08-20-2022 Hematocrit (Bld) [Volume fraction] 36.8 % 36.0-46.0 [facility] Ketones Auto test strip (U) [Mass/Vol]Ordered By: Gilson Castro on 08-20-2022 Ketones (U) [Mass/Vol] 2+ Negative [facility] Laboratory - Chemistry and C hemistry - challengeOrdered By: Gilson Castro on 08-20-2022 Magnesium [Mass/Vol] 1.9 mg/dL 1.6-2.6 [facility] Laboratory - Drug toxicology Ordered By: Gilson Castro on 08-20-2022 Opiates Ql (U) Negative Negative [facility] Laboratory - Hematology and Cell countsOrdered By: Gilson Castro on 08-20-2022 Nucleated RBC/100 WBC (Bld) [Ratio] 0.0 % 0-0.5 [facility] Laboratory - UrinalysisOrder ed By: Gilson Castro on 08-20-2022 Hyaline casts LM Ql (Urine sed) None seen [LPF] 0-8 [facility] Lymphocytes Auto (Bld) [#/Vo l]Ordered By: Gilson Castro on 08-20-2022 Lymphocytes (Bld) [#/Vol] 1.3 10*3/uL 1.20-4.8 [facility] Lymphocytes/100 WBC Auto (Bl d)Ordered By: Gilson Castro on 08-20-2022 Lymphocytes/100 WBC (Bld) 11.5 % . [facility] MCH Auto (RBC) [Entitic mass ]Ordered By: Gilson Castro on 08-20-2022 MCH (RBC) [Entitic mass] 28.1 pg 25.0-35.0 [facility] MCHC Auto (RBC) [Mass/Vol]Or dered By: Gilson Castro on 08-20-2022 MCHC (RBC) [Mass/Vol] 32.9 g/dL 31.0-37.0 [facility] MCV Auto (RBC) [Entitic vol] Ordered By: Gilson Castro on 08-20-2022 MCV (RBC) [Entitic vol] 85.5 fL 78-102 [facility] Monocytes Auto (Bld) [#/Vol] Ordered By: Gilson Castro on 08-20-2022 Monocytes (Bld) [#/Vol] 0.4 10*3/uL 0.1-1.00 [facility] Monocytes/100 WBC Auto (Bld) Ordered By: Gilson Castro on 08-20-2022 Monocytes/100 WBC (Bld) 3.7 % . [facility] Neutrophils Auto (Bld) [#/Vo l]Ordered By: Gilson Castro on 08-20-2022 Neutrophils (Bld) [#/Vol] 9.2 10*3/uL 1.2-7.7 [facility] Neutrophils/100 WBC Auto (Bl d)Ordered By: Gilson Castro on 08-20-2022 Neutrophils/100 WBC (Bld) 84.1 % . [facility] Nitrite Test strip Ql (U)Ord ered By: Gilson Castro on 08-20-2022 Nitrite Ql (U) Negative Negative [facility] No Panel InformationOrdered By: Gilson Castro on 08-20-2022 None seen [LPF] 0-8 [facility] Negative Negative [facility] Estimated GFR () > 60 mL/Min [facility] Comment on above: GFR estimated refere nce range: According to KDOQI guidelines, <60 ml/min/1.73m2 is sufficient to diagnose a patient with chronic kidney disease. Pharmacy Creatinine Clearance (Chem 136.96 [facility] Platelet Estimate Normal Normal [facility] Platelet Morphology Comment Normal Normal [facility] Normal Normal [facility] 1.9 mg/dL 1.6-2.6 [facility] No Panel InformationOrdered By: Ravi Arguello on 08-20-2022 SARS Antigen (LFIA) [facility] Phencyclidine Screen Ql (U)O rdered By: Gilson Castro on 08-20-2022 Phencyclidine Ql (U) Negative Negative [facility] Platelet mean volume Auto (B ld) [Entitic vol]Ordered By: Gilson Castro on 08-20-2022 Platelet mean volume (Bld) [Entitic vol] 8.6 fL 6.3-10.7 [facility] Platelets Auto (Bld) [#/Vol] Ordered By: Gilson Castro on 08-20-2022 Platelets (Bld) [#/Vol] 145 10*3/uL 150-450 [facility] Comment on above: Delta: 314 on Protein Auto test strip (U) [Mass/Vol]Ordered By: Gilson Castro on 08-20-2022 Protein (U) [Mass/Vol] Negative Negative [facility] RBC Auto (Bld) [#/Vol]Ordere d By: Gilson Castro on 08-20-2022 RBC (Bld) [#/Vol] 4.31 10*6/uL 4.10-5.10 [facility] RBC morphologyOrdered By: Pierce Castro on 08-20-2022 RBC morphology finding Nom (Bld) N/A [facility] Serum or plasma anion gap de terminationOrdered By: Gilson Castro on 08-20-2022 Anion gap [Moles/Vol] 15.2 mmol/L 6.0-15.0 [facility] Serum or plasma calcium tammy urement (mass/volume)Ordered By: Gilson Castro on 08-20-2022 Calcium [Mass/Vol] 8.6 mg/dL 8.2-10.2 [facility] Serum or plasma chloride judy surement (moles/volume)Ordered By: Gilson Castro on 08-20-2022 Chloride [Moles/Vol] 101 mmol/L 95-114 [facility] Serum or plasma glucose tammy urement (mass/volume)Ordered By: Gilson Castro on 08-20-2022 Glucose [Mass/Vol] 96 mg/dL 70-100 [facility] Comment on above: ADA recommended refe rence range Random Glucose Reference Range is dependent on time and content of last meal. Glucose of more than 200 mg/dL in a nonstressed, ambulatory subject supports the diagnosis of Diabetes Mellitus. Serum or plasma potassium me asurement (moles/volume)Ordered By: Gilson Castro on 08-20-2022 Potassium [Moles/Vol] 3.1 mmol/L 3.5-5.1 [facility] Serum or plasma sodium measu rement (moles/volume)Ordered By: Gilson Castro on 08-20-2022 Sodium [Moles/Vol] 135 mmol/L 136-146 [facility] Serum or plasma total carbon dioxide measurement (moles/volume)Ordered By: Gilson Castro on 08-20-2022 CO2 [Moles/Vol] 21.9 mmol/L 22.0-30.0 [facility] Serum or plasma urea nitroge n measurement (mass/volume)Ordered By: Gilson Castro on 08-20-2022 Urea nitrogen [Mass/Vol] 11 mg/dL - [facility] Specific gravity Auto test s trip (U) [Rel density]Ordered By: Gilson Castro on 08-20-2022 Specific gravity (U) [Rel density] 1.008 1.001-1.[address] [facility] Squamous epithelial cells de tection in urine sediment by light microscopyOrdered By: Gilson Castro on 08-20-2022 Epithelial cells.squamous LM Ql (Urine sed) 1-2 [HPF] 0-2 [facility] Urine bacteria detection by automated methodOrdered By: Gilson Castro on 08-20-2022 Bacteria Auto Ql (U) None seen None Seen [facility] Urine clarity by refractomet ry automatedOrdered By: Gilson Castro on 08-20-2022 Clarity Refractometry automated (U) Clear Clear [facility] Urine cocaine detectionOrder ed By: Gilson Castro on 08-20-2022 Cocaine Ql (U) Negative Negative [facility] Urine glucose measurement by automated test strip (mass/volume)Ordered By: Gilson Castro on 08-20-2022 Glucose Auto test strip (U) [Mass/Vol] Normal mg/dL Normal [facility] Urine hemoglobin detection b y automated test stripOrdered By: Gilson Castro on 08-20-2022 Hemoglobin Auto test strip Ql (U) Negative Negative [facility] Urine leukocyte esterase det ection by automated test stripOrdered By: Gilson Castro on 08-20-2022 Leukocyte esterase Auto test strip Ql (U) 1+ Negative [facility] Urobilinogen Auto test strip (U) [Mass/Vol]Ordered By: Gilson Castro on 08-20-2022 Urobilinogen (U) [Mass/Vol] Normal mg/dL Normal [facility] pH Auto test strip (U)Ordere d By: Gilson Castro on 08-20-2022 pH (U) 7.0 [pH] 5.0-9.0 [facility] Automated erythrocytes count in urine sediment (number/area)Ordered By: Gilson Castro on 08-19-2022 RBC Auto (Urine sed) [#/Area] 3-4 [HPF] 0-4 [facility] Automated erythrocytes count in urine sediment (number/area)Ordered By: Colten Fry on 08-19-2022 RBC Auto (Urine sed) [#/Area] None seen [HPF] 0-4 [facility] Automated leukocytes count i n urine sediment (number/area)Ordered By: Gilson Castro on 08-19-2022 WBC Auto (Urine sed) [#/Area] 20-49 [HPF] 0-4 [facility] Automated leukocytes count i n urine sediment (number/area)Ordered By: Colten Fry on 08-19-2022 WBC Auto (Urine sed) [#/Area] 5-9 [HPF] 0-4 [facility] Automated urine hyaline cast s count (number/volume)Ordered By: Gilson Castro on 08-19-2022 Hyaline casts Auto (U) [#/Vol] None seen [LPF] 0-1 [facility] Basophils Auto (Bld) [#/Vol] Ordered By: Gilson Castro on 08-19-2022 Basophils (Bld) [#/Vol] 0.0 10*3/uL 0.0-0.1 [facility] Basophils Auto (Bld) [#/Vol] Ordered By: Colten Fry on 08-19-2022 Basophils (Bld) [#/Vol] 0.0 10*3/uL 0.0-0.1 [facility] Basophils/100 WBC Auto (Bld) Ordered By: Gilson Castro on 08-19-2022 Basophils/100 WBC (Bld) 0.2 % . [facility] Basophils/100 WBC Auto (Bld) Ordered By: Colten Fry on 08-19-2022 Basophils/100 WBC (Bld) 0.4 % . [facility] Bilirubin Test strip Ql (U)O rdered By: Gilson Castro on 08-19-2022 Bilirubin Ql (U) Negative Negative [facility] Bilirubin Test strip Ql (U)O rdered By: Colten Fry on 08-19-2022 Bilirubin Ql (U) Negative Negative [facility] Blood hemoglobin measurement (mass/volume)Ordered By: Gilson Castro on 08-19-2022 Hemoglobin (Bld) [Mass/Vol] 13.2 g/dL 12.0-16.0 [facility] Blood hemoglobin measurement (mass/volume)Ordered By: Colten Fry on 08-19-2022 Hemoglobin (Bld) [Mass/Vol] 12.8 g/dL 12.0-16.0 [facility] Blood leukocytes automated c ount (number/volume)Ordered By: Gilson Castro on 08-19-2022 WBC (Bld) [#/Vol] 15.5 10*3/uL 4.5-13.5 [facility] Blood leukocytes automated c ount (number/volume)Ordered By: Colten Fry on 08-19-2022 WBC (Bld) [#/Vol] 13.5 10*3/uL 4.5-13.5 [facility] Body fluid albumin measureme nt (mass/volume)Ordered By: Gilson Castro on 08-19-2022 Albumin (Body fld) [Mass/Vol] 4.0 g/dL 3.2-5.5 [facility] Body fluid albumin measureme nt (mass/volume)Ordered By: Colten Fry on 08-19-2022 Albumin (Body fld) [Mass/Vol] 4.5 g/dL 3.2-5.5 [facility] COVID-19 SOFIAOrdered By: Pierce Castro on 08-19-2022 SARS-CoV+SARS-CoV-2 (COVID-19) Ag IA.rapid Ql (Resp) Negative Negative [facility] Comment on above: This is a duplicate [facility] SARS Antigen (JOSE A) result to be used for statistical tracking purpose only. Casts typing in urine sedime nt by light microscopyOrdered By: Gilson Castro on 08-19-2022 Casts LM Nom (Urine sed) None seen [LPF] None Seen [facility] Casts typing in urine sedime nt by light microscopyOrdered By: Colten Fry on 08-19-2022 Casts LM Nom (Urine sed) N/A [facility] Color Auto (U)Ordered By: Pierce Castro on 08-19-2022 Color (U) Yellow Yellow [facility] Color Auto (U)Ordered By: Vida Fry on 08-19-2022 Color (U) Yellow Yellow [facility] Creatinine and Glomerular fi ltration rate.predicted panel (S/P/Bld)Ordered By: Gilson Castro on 08-19-2022 Creatinine [Mass/Vol] 0.73 mg/dL 0.44-1.03 [facility] Creatinine and Glomerular fi ltration rate.predicted panel (S/P/Bld)Ordered By: Colten Fry on 08-19-2022 Creatinine [Mass/Vol] 0.82 mg/dL 0.44-1.03 [facility] Eosinophils Auto (Bld) [#/Vo l]Ordered By: Gilson Castro on 08-19-2022 Eosinophils (Bld) [#/Vol] 0.0 10*3/uL 0.0-0.7 [facility] Eosinophils Auto (Bld) [#/Vo l]Ordered By: Colten Fry on 08-19-2022 Eosinophils (Bld) [#/Vol] 0.0 10*3/uL 0.0-0.7 [facility] Eosinophils/100 WBC Auto (Bl d)Ordered By: Gilson Castro on 08-19-2022 Eosinophils/100 WBC (Bld) 0.2 % . [facility] Eosinophils/100 WBC Auto (Bl d)Ordered By: Colten Fry on 08-19-2022 Eosinophils/100 WBC (Bld) 0.0 % . [facility] Erythrocyte distribution wid th Auto (RBC) [Ratio]Ordered By: Gilson Castro on 08-19-2022 Erythrocyte distribution width (RBC) [Ratio] 14.4 % 11.9-15.3 [facility] Erythrocyte distribution wid th Auto (RBC) [Ratio]Ordered By: Colten Fry on 08-19-2022 Erythrocyte distribution width (RBC) [Ratio] 14.3 % 11.9-15.3 [facility] Estimated glomerular filtrat ion rate (GFR) non- AmericanOrdered By: Gilson Castro on 08-19-2022 GFR/1.73 sq M.predicted among non-blacks MDRD (S/P/Bld) [Vol rate/Area] > 60 mL/Min [facility] Estimated glomerular filtrat ion rate (GFR) non- AmericanOrdered By: Colten Fry on 08-19-2022 GFR/1.73 sq M.predicted among non-blacks MDRD (S/P/Bld) [Vol rate/Area] > 60 mL/Min [facility] Globulin Calc (S) [Mass/Vol] Ordered By: Gilson Castro on 08-19-2022 Globulin (S) [Mass/Vol] 2.7 g/dL [facility] Globulin Calc (S) [Mass/Vol] Ordered By: Colten Fry on 08-19-2022 Globulin (S) [Mass/Vol] 3.0 g/dL [facility] HCG ( test) IA.rapi d Ql (U)Ordered By: Gilson Castro on 08-19-2022 HCG ( test) Ql (U) Negative [facility] HCG ( test) IA.rapi d Ql (U)Ordered By: Colten Fry on 08-19-2022 HCG ( test) Ql (U) Negative [facility] Hematocrit Auto (Bld) [Volum e fraction]Ordered By: Gilson Castro on 08-19-2022 Hematocrit (Bld) [Volume fraction] 40.6 % 36.0-46.0 [facility] Hematocrit Auto (Bld) [Volum e fraction]Ordered By: Colten Fry on 08-19-2022 Hematocrit (Bld) [Volume fraction] 39.5 % 36.0-46.0 [facility] Ketones Auto test strip (U) [Mass/Vol]Ordered By: Gilson Castro on 08-19-2022 Ketones (U) [Mass/Vol] 4+ Negative [facility] Ketones Auto test strip (U) [Mass/Vol]Ordered By: Colten Fry on 08-19-2022 Ketones (U) [Mass/Vol] 3+ Negative Fi [facility] Laboratory - Chemistry and C hemistry - challengeOrdered By: Gilson Castro on 08-19-2022 Lipase [Catalytic activity/Vol] 24.0 U/L [facility] Magnesium [Mass/Vol] 2.0 mg/dL 1.6-2.6 [facility] Laboratory - Hematology and Cell countsOrdered By: Gilson Castro on 08-19-2022 Nucleated RBC/100 WBC (Bld) [Ratio] 0.1 % 0-0.5 [facility] Laboratory - Hematology and Cell countsOrdered By: Colten Fry on 08-19-2022 Nucleated RBC/100 WBC (Bld) [Ratio] 0.0 % 0-0.5 [facility] Laboratory - UrinalysisOrder ed By: Colten Fry on 08-19-2022 Hyaline casts LM Ql (Urine sed) None seen [LPF] 0-8 [facility] Lymphocytes Auto (Bld) [#/Vo l]Ordered By: Gilson Castro on 08-19-2022 Lymphocytes (Bld) [#/Vol] 2.3 10*3/uL 1.20-4.8 [facility] Lymphocytes Auto (Bld) [#/Vo l]Ordered By: Colten Fry on 08-19-2022 Lymphocytes (Bld) [#/Vol] 1.0 10*3/uL 1.20-4.8 [facility] Lymphocytes/100 WBC Auto (Bl d)Ordered By: Gilson Castro on 08-19-2022 Lymphocytes/100 WBC (Bld) 14.6 % . [facility] Lymphocytes/100 WBC Auto (Bl d)Ordered By: Colten Fry on 08-19-2022 Lymphocytes/100 WBC (Bld) 7.3 % . [facility] MCH Auto (RBC) [Entitic mass ]Ordered By: Gilson Castro on 08-19-2022 MCH (RBC) [Entitic mass] 27.9 pg 25.0-35.0 [facility] MCH Auto (RBC) [Entitic mass ]Ordered By: Colten Fry on 08-19-2022 MCH (RBC) [Entitic mass] 27.7 pg 25.0-35.0 [facility] MCHC Auto (RBC) [Mass/Vol]Or dered By: Gilson Castro on 08-19-2022 MCHC (RBC) [Mass/Vol] 32.6 g/dL 31.0-37.0 [facility] MCHC Auto (RBC) [Mass/Vol]Or dered By: Colten Fry on 08-19-2022 MCHC (RBC) [Mass/Vol] 32.3 g/dL 31.0-37.0 [facility] MCV Auto (RBC) [Entitic vol] Ordered By: Gilson Castro on 08-19-2022 MCV (RBC) [Entitic vol] 85.6 fL 78-102 [facility] MCV Auto (RBC) [Entitic vol] Ordered By: Colten Fry on 08-19-2022 MCV (RBC) [Entitic vol] 85.7 fL 78-102 [facility] Monocytes Auto (Bld) [#/Vol] Ordered By: Gilson Castro on 08-19-2022 Monocytes (Bld) [#/Vol] 1.1 10*3/uL 0.1-1.00 [facility] Monocytes Auto (Bld) [#/Vol] Ordered By: Colten Fry on 08-19-2022 Monocytes (Bld) [#/Vol] 0.3 10*3/uL 0.1-1.00 [facility] Monocytes/100 WBC Auto (Bld) Ordered By: Gilson Castro on 08-19-2022 Monocytes/100 WBC (Bld) 7.3 % . [facility] Monocytes/100 WBC Auto (Bld) Ordered By: Colten Fry on 08-19-2022 Monocytes/100 WBC (Bld) 2.1 % . [facility] Neutrophils Auto (Bld) [#/Vo l]Ordered By: Gilson Castro on 08-19-2022 Neutrophils (Bld) [#/Vol] 12.1 10*3/uL 1.2-7.7 [facility] Neutrophils Auto (Bld) [#/Vo l]Ordered By: Colten Fry on 08-19-2022 Neutrophils (Bld) [#/Vol] 12.2 10*3/uL 1.2-7.7 [facility] Neutrophils/100 WBC Auto (Bl d)Ordered By: Gilson Castro on 08-19-2022 Neutrophils/100 WBC (Bld) 77.7 % . [facility] Neutrophils/100 WBC Auto (Bl d)Ordered By: Colten Fry on 08-19-2022 Neutrophils/100 WBC (Bld) 90.2 % . [facility] Nitrite Test strip Ql (U)Ord ered By: Gilson Castro on 08-19-2022 Nitrite Ql (U) Negative Negative [facility] Nitrite Test strip Ql (U)Ord ered By: Colten Fry on 08-19-2022 Nitrite Ql (U) Negative Negative [facility] No Panel InformationOrdered By: Gilson Castro on 08-19-2022 Estimated GFR () > 60 mL/Min [facility] Comment on above: GFR estimated refere nce range: According to KDOQI guidelines, <60 ml/min/1.73m2 is sufficient to diagnose a patient with chronic kidney disease. Pharmacy Creatinine Clearance (Chem 121.95 [facility] > 60 mL/Min [facility] 2.0 mg/dL 1.6-2.6 [facility] 24.0 U/L 22-51 [facility] 121.95 [facility] 15.5 10*3/uL 4.5-13.5 [facility] 0.1 % 0-0.5 [facility] SARS Antigen (LFIA) [facility] No Panel InformationOrdered By: Colten Fry on 08-19-2022 None seen [LPF] 0-8 [facility] Estimated GFR () > 60 mL/Min [facility] Comment on above: GFR estimated refere nce range: According to KDOQI guidelines, <60 ml/min/1.73m2 is sufficient to diagnose a patient with chronic kidney disease. Pharmacy Creatinine Clearance (Chem 106.97 [facility] 13.5 10*3/uL 4.5-13.5 [facility] 0.0 % 0-0.5 [facility] > 60 mL/Min [facility] 106.97 [facility] Platelet mean volume Auto (B ld) [Entitic vol]Ordered By: Gilson Castro on 08-19-2022 Platelet mean volume (Bld) [Entitic vol] 8.8 fL 6.3-10.7 [facility] Platelet mean volume Auto (B ld) [Entitic vol]Ordered By: Colten Fry on 08-19-2022 Platelet mean volume (Bld) [Entitic vol] 8.7 fL 6.3-10.7 [facility] Platelets Auto (Bld) [#/Vol] Ordered By: Gilson Castro on 08-19-2022 Platelets (Bld) [#/Vol] 314 10*3/uL 150-450 [facility] Platelets Auto (Bld) [#/Vol] Ordered By: Colten Fry on 08-19-2022 Platelets (Bld) [#/Vol] 258 10*3/uL 150-450 [facility] Protein Auto test strip (U) [Mass/Vol]Ordered By: Gilson Castro on 08-19-2022 Protein (U) [Mass/Vol] 30 mg/dL Negative Fi [facility] Protein Auto test strip (U) [Mass/Vol]Ordered By: Colten Fry on 08-19-2022 Protein (U) [Mass/Vol] Trace mg/dL Negative [facility] Protein [Mass/volume] in Ser um or PlasmaOrdered By: Gilson Castro on 08-19-2022 Protein [Mass/Vol] 6.7 g/dL 6.1-7.9 [facility] Protein [Mass/volume] in Ser um or PlasmaOrdered By: Colten Fry on 08-19-2022 Protein [Mass/Vol] 7.5 g/dL 6.1-7.9 [facility] RBC Auto (Bld) [#/Vol]Ordere d By: Gilson Castro on 08-19-2022 RBC (Bld) [#/Vol] 4.74 10*6/uL 4.10-5.10 [facility] RBC Auto (Bld) [#/Vol]Ordere d By: Colten Fry on 08-19-2022 RBC (Bld) [#/Vol] 4.60 10*6/uL 4.10-5.10 [facility] Serum or plasma alanine florez otransferase measurement without P-5'-P (enzymatic activiOrdered By: Gilson Castro on 08-19-2022 ALT No additional P-5'-P [Catalytic activity/Vol] 17 U/L [facility] Serum or plasma alanine flroez otransferase measurement without P-5'-P (enzymatic activiOrdered By: Colten Fry on 08-19-2022 ALT No additional P-5'-P [Catalytic activity/Vol] 16 U/L [facility] Serum or plasma albumin/glob ulin mass ratioOrdered By: Gilson Castro on 08-19-2022 Albumin/Globulin [Mass ratio] 1.5 {ratio} [facility] Serum or plasma albumin/glob ulin mass ratioOrdered By: Colten Fry on 08-19-2022 Albumin/Globulin [Mass ratio] 1.5 {ratio} [facility] Serum or plasma alkaline justin sphatase measurement (enzymatic activity/volume)Ordered By: Gilson Castro on 08-19-2022 ALP [Catalytic activity/Vol] 51 U/L [address] [place] [address] Serum or plasma alkaline justin sphatase measurement (enzymatic activity/volume)Ordered By: Colten Fry on 08-19-2022 ALP [Catalytic activity/Vol] 59 U/L - [facility] Serum or plasma anion gap de terminationOrdered By: Gilson Castro on 08-19-2022 Anion gap [Moles/Vol] 13.8 mmol/L 6.0-15.0 [facility] Serum or plasma anion gap de terminationOrdered By: Colten Fry on 08-19-2022 Anion gap [Moles/Vol] 19.5 mmol/L 6.0-15.0 [facility] Serum or plasma aspartate am inotransferase measurement (enzymatic activity/volume)Ordered By: Gilson Castro on 08-19-2022 AST [Catalytic activity/Vol] 17 U/L [facility] Serum or plasma aspartate am inotransferase measurement (enzymatic activity/volume)Ordered By: Colten Fry on 08-19-2022 AST [Catalytic activity/Vol] 20 U/L [facility] Serum or plasma calcium tammy urement (mass/volume)Ordered By: Gilson Castro on 08-19-2022 Calcium [Mass/Vol] 9.1 mg/dL 8.2-10.2 [facility] Serum or plasma calcium tammy urement (mass/volume)Ordered By: Colten Fry on 08-19-2022 Calcium [Mass/Vol] 9.8 mg/dL 8.2-10.2 [facility] Serum or plasma chloride judy surement (moles/volume)Ordered By: Gilson Castro on 08-19-2022 Chloride [Moles/Vol] 104 mmol/L 95-114 [facility] Serum or plasma chloride judy surement (moles/volume)Ordered By: Colten Fry on 08-19-2022 Chloride [Moles/Vol] 107 mmol/L 95-114 [facility] Serum or plasma creatinine m easurement with calculation of estimated glomerular filtrOrdered By: Gilson Castro on 08-19-2022 Creatinine and Glomerular filtration rate.predicted panel (S/P/Bld) 0.73 mg/dL 0.44-1.03 [facility] Serum or plasma creatinine m easurement with calculation of estimated glomerular filtrOrdered By: Colten Fry on 08-19-2022 Creatinine and Glomerular filtration rate.predicted panel (S/P/Bld) 0.82 mg/dL 0.44-1.03 [facility] Serum or plasma glucose tammy urement (mass/volume)Ordered By: Gilson Castro on 08-19-2022 Glucose [Mass/Vol] 108 mg/dL 70-100 [facility] Comment on above: ADA recommended refe [...] on 08-19-2022 Glucose [Mass/Vol] 131 mg/dL 70-100 [facility] Comment on above: ADA recommended refe [...] on 08-19-2022 Potassium [Moles/Vol] 3.1 mmol/L 3.5-5.1 [facility] Serum or plasma potassium me asurement (moles/volume)Ordered By: Colten Fry on 08-19-2022 Potassium [Moles/Vol] 3.9 mmol/L 3.5-5.1 [facility] Serum or plasma sodium measu rement (moles/volume)Ordered By: Gilson Castro on 08-19-2022 Sodium [Moles/Vol] 138 mmol/L 136-146 [facility] Serum or plasma sodium measu rement (moles/volume)Ordered By: Colten Fry on 08-19-2022 Sodium [Moles/Vol] 142 mmol/L 136-146 [facility] Serum or plasma total biliru bin measurement (mass/volume)Ordered By: Gilson Castro on 08-19-2022 Bilirubin [Mass/Vol] 0.5 mg/dL 0.3-1.2 [facility] Serum or plasma total biliru bin measurement (mass/volume)Ordered By: Colten Fry on 08-19-2022 Bilirubin [Mass/Vol] 0.6 mg/dL 0.3-1.2 [facility] Serum or plasma total carbon dioxide measurement (moles/volume)Ordered By: Gilson Castro on 08-19-2022 CO2 [Moles/Vol] 23.3 mmol/L 22.0-30.0 [facility] Serum or plasma total carbon dioxide measurement (moles/volume)Ordered By: Colten Fry on 08-19-2022 CO2 [Moles/Vol] 19.4 mmol/L 22.0-30.0 [facility] Serum or plasma urea nitroge n measurement (mass/volume)Ordered By: Gilson Castro on 08-19-2022 Urea nitrogen [Mass/Vol] 15 mg/dL 08-20 [facility] Serum or plasma urea nitroge n measurement (mass/volume)Ordered By: Colten Fry on 08-19-2022 Urea nitrogen [Mass/Vol] 14 mg/dL 08-20 [facility] Specific gravity Auto test s trip (U) [Rel density]Ordered By: Gilson Castro on 08-19-2022 Specific gravity (U) [Rel density] 1.026 1.001-1.[address] [facility] Specific gravity Auto test s trip (U) [Rel density]Ordered By: Colten Fry on 08-19-2022 Specific gravity (U) [Rel density] 1.023 1.001-1.[address] [facility] Squamous epithelial cells de tection in urine sediment by light microscopyOrdered By: Gilson Castro on 08-19-2022 Epithelial cells.squamous LM Ql (Urine sed) 20-30 [HPF] 0-2 [facility] Squamous epithelial cells de tection in urine sediment by light microscopyOrdered By: Colten Fry on 08-19-2022 Epithelial cells.squamous LM Ql (Urine sed) 20-30 [HPF] 0-2 [facility] Urine bacteria detection by automated methodOrdered By: Gilson Castro on 08-19-2022 Bacteria Auto Ql (U) 2+ None Seen [facility] Urine bacteria detection by automated methodOrdered By: Colten Fry on 08-19-2022 Bacteria Auto Ql (U) 1+ None Seen [facility] Urine clarity by refractomet ry automatedOrdered By: Gilson Castro on 08-19-2022 Clarity Refractometry automated (U) Turbid Clear [facility] Urine clarity by refractomet ry automatedOrdered By: Colten Fry on 08-19-2022 Clarity Refractometry automated (U) Cloudy Clear [facility] Urine glucose measurement by automated test strip (mass/volume)Ordered By: Gilson Castro on 08-19-2022 Glucose Auto test strip (U) [Mass/Vol] Normal mg/dL Normal [facility] Urine glucose measurement by automated test strip (mass/volume)Ordered By: Colten Fry on 08-19-2022 Glucose Auto test strip (U) [Mass/Vol] Normal mg/dL Normal [facility] Urine hemoglobin detection b y automated test stripOrdered By: Gilson Castro on 08-19-2022 Hemoglobin Auto test strip Ql (U) Negative Negative [facility] Urine hemoglobin detection b y automated test stripOrdered By: Colten Fry on 08-19-2022 Hemoglobin Auto test strip Ql (U) Negative Negative [facility] Urine leukocyte esterase det ection by automated test stripOrdered By: Gilson Castro on 08-19-2022 Leukocyte esterase Auto test strip Ql (U) 2+ Negative [facility] Urine leukocyte esterase det ection by automated test stripOrdered By: Colten rFy on 08-19-2022 Leukocyte esterase Auto test strip Ql (U) 1+ Negative [facility] Urobilinogen Auto test strip (U) [Mass/Vol]Ordered By: Gilson Castro on 08-19-2022 Urobilinogen (U) [Mass/Vol] Normal mg/dL Normal [facility] Urobilinogen Auto test strip (U) [Mass/Vol]Ordered By: Colten Fry on 08-19-2022 Urobilinogen (U) [Mass/Vol] Normal mg/dL Normal [facility] pH Auto test strip (U)Ordere d By: Gilson Castro on 08-19-2022 pH (U) 8.0 [pH] 5.0-9.0 [facility] pH Auto test strip (U)Ordere d By: Colten Fry on 08-19-2022 pH (U) 6.0 [pH] 5.0-9.0 [facility] COVID-19 SOFIAOrdered By: Lul Rivera on 08-18-2022 SARS-CoV+SARS-CoV-2 (COVID-19) Ag IA.rapid Ql (Resp) Negative Negative [facility] Comment on above: This is a duplicate [facility] SARS Antigen (JOSE A) result to be used for statistical tracking purpose only. No Panel InformationOrdered By: Joss Rivera on 08-18-2022 SARS Antigen (LFIA) [facility] Basophils Auto (Bld) [#/Vol] Ordered By: Modesta Chand on 06-25-2022 Basophils (Bld) [#/Vol] 0.1 10*3/uL 0.0-0.1 [facility] Basophils/100 WBC Auto (Bld) Ordered By: Modesta Chand on 06-25-2022 Basophils/100 WBC (Bld) 1.2 % . [facility] Blood hemoglobin measurement (mass/volume)Ordered By: Modesta Chand on 06-25-2022 Hemoglobin (Bld) [Mass/Vol] 13.8 g/dL 12.0-16.0 [facility] Blood leukocytes automated c ount (number/volume)Ordered By: Modesta Chand on 06-25-2022 WBC (Bld) [#/Vol] 7.9 10*3/uL 4.5-13.5 [facility] Body fluid albumin measureme nt (mass/volume)Ordered By: Modesta Chand on 06-25-2022 Albumin (Body fld) [Mass/Vol] 4.5 g/dL 3.2-5.[address] [facility] [address] biopsyOrdered By: Yasmine Chand on 06-25-2022 Transferrin [Mass/Vol] 328 mg/dL 180-380 [facility] Creatinine and Glomerular fi ltration rate.predicted panel (S/P/Bld)Ordered By: Modesta Chand on 06-25-2022 Creatinine [Mass/Vol] 0.67 mg/dL 0.44-1.03 [facility] Eosinophils Auto (Bld) [#/Vo l]Ordered By: Modesta Chand on 06-25-2022 Eosinophils (Bld) [#/Vol] 0.6 10*3/uL 0.0-0.7 [facility] Eosinophils/100 WBC Auto (Bl d)Ordered By: Modesta Chand on 06-25-2022 Eosinophils/100 WBC (Bld) 7.2 % . [facility] Erythrocyte distribution wid th Auto (RBC) [Ratio]Ordered By: Modesta Chand on 06-25-2022 Erythrocyte distribution width (RBC) [Ratio] 13.6 % 11.9-15.3 [facility] Estimated glomerular filtrat ion rate (GFR) non- AmericanOrdered By: Modesta Chand on 06-25-2022 GFR/1.73 sq M.predicted among non-blacks MDRD (S/P/Bld) [Vol rate/Area] > 60 mL/Min [facility] Ferritin [Mass/volume] in Se rum or PlasmaOrdered By: Modesta Chand on 06-25-2022 Ferritin [Mass/Vol] 28.5 ng/mL 11-306.8 [facility] Globulin Calc (S) [Mass/Vol] Ordered By: Modesta Chand on 06-25-2022 Globulin (S) [Mass/Vol] 2.5 g/dL [facility] Hematocrit Auto (Bld) [Volum e fraction]Ordered By: Modesta Chand on 06-25-2022 Hematocrit (Bld) [Volume fraction] 42.3 % 36.0-46.0 [facility] Iron [Mass/volume] in Serum or PlasmaOrdered By: Modesta Chand on 06-25-2022 Iron [Mass/Vol] 52 ug/dL 40-150 [facility] Iron binding capacity [Mass/ volume] in Serum or PlasmaOrdered By: Modesta Chand on 06-25-2022 Iron binding capacity [Mass/Vol] 459 ug/dL 255-450 [facility] Iron saturation [Mass Fracti on] in Serum or PlasmaOrdered By: Modesta Chand on 06-25-2022 Iron saturation [Mass fraction] 11.0 % 20-50 [facility] Laboratory - Hematology and Cell countsOrdered By: Modesta Chand on 06-25-2022 Nucleated RBC/100 WBC (Bld) [Ratio] 0.0 % 0-0.5 [facility] Lymphocytes Auto (Bld) [#/Vo l]Ordered By: Modesta Chand on 06-25-2022 Lymphocytes (Bld) [#/Vol] 2.1 10*3/uL 1.20-4.8 [facility] Lymphocytes/100 WBC Auto (Bl d)Ordered By: Modesta Chand on 06-25-2022 Lymphocytes/100 WBC (Bld) 26.9 % . [facility] MCH Auto (RBC) [Entitic mass ]Ordered By: Modesta Chand on 06-25-2022 MCH (RBC) [Entitic mass] 28.1 pg 25.0-35.0 [facility] MCHC Auto (RBC) [Mass/Vol]Or dered By: Modesta Chand on 06-25-2022 MCHC (RBC) [Mass/Vol] 32.7 g/dL 31.0-37.0 [facility] MCV Auto (RBC) [Entitic vol] Ordered By: Modesta Chand on 06-25-2022 MCV (RBC) [Entitic vol] 85.8 fL 78-102 [facility] Monocytes Auto (Bld) [#/Vol] Ordered By: Modesta Chand on 06-25-2022 Monocytes (Bld) [#/Vol] 0.6 10*3/uL 0.1-1.00 [facility] Monocytes/100 WBC Auto (Bld) Ordered By: Modesta Chand on 06-25-2022 Monocytes/100 WBC (Bld) 7.2 % . [facility] Neutrophils Auto (Bld) [#/Vo l]Ordered By: Modesta Chand on 06-25-2022 Neutrophils (Bld) [#/Vol] 4.5 10*3/uL 1.2-7.7 [facility] Neutrophils/100 WBC Auto (Bl d)Ordered By: Modesta Chand on 06-25-2022 Neutrophils/100 WBC (Bld) 57.5 % . [facility] No Panel InformationOrdered By: Modesta Chand on 06-25-2022 25-Hydroxy Vitamin D Total 35.9 ng/mL 30-100 [facility] Comment on above: VITAMIN D STATUS 25( [place])VITAMIN D RANGE (ng/mL) Deficient <20 Insufficient 20 to <30 Sufficient 30 to 100 Reference: Danica MF,Chayo NC, Sony ZULETA, et al. Evaluation,treatment, and prevention of vitamin D deficiency; an Endocrine Society clinical practice guideline. JCEM. 2010; 96(7):1911-30. Absolute Reticulocyte Count 0.066 10*6/uL 0.024-0.[address] [facility] Estimated GFR () > 60 mL/Min [facility] Comment on above: GFR estimated refere nce range: According to KDOQI guidelines, <60 ml/min/1.73m2 is sufficient to diagnose a patient with chronic kidney disease. Percent Reticulocyte Count 1.3 % 0.5-1.5 [facility] Creatinine Clearance (Chem N/A [facility] Platelet mean volume Auto (B ld) [Entitic vol]Ordered By: Modesta Chand on 06-25-2022 Platelet mean volume (Bld) [Entitic vol] 9.0 fL 6.3-10.7 [facility] Platelets Auto (Bld) [#/Vol] Ordered By: Modesta Chand on 06-25-2022 Platelets (Bld) [#/Vol] 263 10*3/uL 150-450 [facility] Protein [Mass/volume] in Ser um or PlasmaOrdered By: Modesta Chand on 06-25-2022 Protein [Mass/Vol] 7.0 g/dL 6.1-7.9 [facility] RBC Auto (Bld) [#/Vol]Ordere d By: Modesta Chand on 06-25-2022 RBC (Bld) [#/Vol] 4.94 10*6/uL 4.10-5.10 [facility] Serum or plasma alanine florez otransferase measurement without P-5'-P (enzymatic activiOrdered By: Modesta Chand on 06-25-2022 ALT No additional P-5'-P [Catalytic activity/Vol] 18 U/L 10-60 [facility] Serum or plasma albumin/glob ulin mass ratioOrdered By: Modesta Chand on 06-25-2022 Albumin/Globulin [Mass ratio] 1.8 {ratio} [facility] Serum or plasma alkaline justin sphatase measurement (enzymatic activity/volume)Ordered By: Modesta Chand on 06-25-2022 ALP [Catalytic activity/Vol] 65 U/L 32-92 [facility] Serum or plasma aspartate am inotransferase measurement (enzymatic activity/volume)Ordered By: Modesta Chand on 06-25-2022 AST [Catalytic activity/Vol] 18 U/L 10-42 [facility] Serum or plasma calcium tammy urement (mass/volume)Ordered By: Modesta Chand on 06-25-2022 Calcium [Mass/Vol] 10.2 mg/dL 8.2-10.2 [facility] Serum or plasma chloride judy surement (moles/volume)Ordered By: Modesta Chand on 06-25-2022 Chloride [Moles/Vol] 102 mmol/L 95-114 [facility] Serum or plasma glucose tammy urement (mass/volume)Ordered By: Modesta Chand on 06-25-2022 Glucose [Mass/Vol] 87 mg/dL 70-100 [facility] Comment on above: ADA recommended refe rence range Random Glucose Reference Range is dependent on time and content of last meal. Glucose of more than 200 mg/dL in a nonstressed, ambulatory subject supports the diagnosis of Diabetes Mellitus. Serum or plasma potassium me asurement (moles/volume)Ordered By: Modesta Chand on 06-25-2022 Potassium [Moles/Vol] 4.4 mmol/L 3.5-5.1 [facility] Serum or plasma sodium measu rement (moles/volume)Ordered By: Modesta Chand on 06-25-2022 Sodium [Moles/Vol] 137 mmol/L 136-146 [facility] Serum or plasma total biliru bin measurement (mass/volume)Ordered By: Modesta Chand on 06-25-2022 Bilirubin [Mass/Vol] 0.4 mg/dL 0.3-1.2 [facility] Serum or plasma total carbon dioxide measurement (moles/volume)Ordered By: Modesta Chand on 06-25-2022 CO2 [Moles/Vol] 23.8 mmol/L 22.0-30.0 [facility] Serum or plasma urea nitroge n measurement (mass/volume)Ordered By: Modesta Chand on 06-25-2022 Urea nitrogen [Mass/Vol] 14 mg/dL 9-23 [facility] TSH DL <= 0.005 mIU/L QnOrde red By: Modesta Chand on 06-25-2022 TSH Qn 1.05 m[IU]/L 0.45-5.33 [facility] Thyroxine (T4) free [Mass/vo lume] in Serum or PlasmaOrdered By: Modesta Chand on 06-25-2022 Free T4 [Mass/Vol] 0.74 ng/dL 0.61-1.12 [facility] HCG ( test) IA.rapi d Ql (U)Ordered By: Brennen Britt on 06-09-2022 HCG ( test) Ql (U) Negative [facility] COVID-19 Positive/NegativeOr dered By: Brennen Britt on 06-07-2022 SARS-CoV-2 (COVID-19) N gene JANAK+probe Ql (Resp) Negative Negative [facility] Comment on above: Testing for SARS-CoV -2 by RT-PCR This test was developed and its performance characteristics determined by [employer]) and validated at the [facility]. This test has not been FDA [...] on 05-26-2022 Albumin [Mass/Vol] 3.9 g/dL 3.2-5.5 [facility] Basophils Auto (Bld) [#/Vol] Ordered By: Modesta Chand on 05-26-2022 Basophils (Bld) [#/Vol] 0.1 10*3/uL 0.0-0.1 [facility] Basophils/100 WBC Auto (Bld) Ordered By: Modesta Chand on 05-26-2022 Basophils/100 WBC (Bld) 1.1 % . [facility] Blood hemoglobin measurement (mass/volume)Ordered By: Modesta Chand on 05-26-2022 Hemoglobin (Bld) [Mass/Vol] 13.6 g/dL 12.0-16.0 [facility] Blood leukocytes automated c ount (number/volume)Ordered By: Modesta Chand on 05-26-2022 WBC (Bld) [#/Vol] 10.6 10*3/uL 4.5-13.5 [facility] C reactive protein [Mass/vol ume] in Serum or PlasmaOrdered By: Modesta Chand on 05-26-2022 CRP [Mass/Vol] 0.6 mg/dL 0.0-1.[address] [facility] CT biopsyOrdered By: Yasmine Chand on 05-26-2022 Transferrin [Mass/Vol] 292 mg/dL 180-380 [facility] Creatinine and Glomerular fi ltration rate.predicted panel (S/P/Bld)Ordered By: Modesta Chand on 05-26-2022 Creatinine [Mass/Vol] 0.63 mg/dL 0.44-1.03 [facility] Eosinophils Auto (Bld) [#/Vo l]Ordered By: Modesta Chand on 05-26-2022 Eosinophils (Bld) [#/Vol] 0.4 10*3/uL 0.0-0.7 [facility] Eosinophils/100 WBC Auto (Bl d)Ordered By: Modesta Chand on 05-26-2022 Eosinophils/100 WBC (Bld) 3.6 % . [facility] Erythrocyte distribution wid th Auto (RBC) [Ratio]Ordered By: Modesta Chand on 05-26-2022 Erythrocyte distribution width (RBC) [Ratio] 13.7 % 11.9-15.3 [facility] Erythrocyte sedimentation ra te by Photometric methodOrdered By: Modesta Chand on 05-26-2022 ESR Photometric method (Bld) [Velocity] 5 mm/hr 0-19 [facility] Estimated glomerular filtrat ion rate (GFR) non- AmericanOrdered By: Modesta Chand on 05-26-2022 GFR/1.73 sq M.predicted among non-blacks MDRD (S/P/Bld) [Vol rate/Area] > 60 mL/Min [facility] Ferritin [Mass/volume] in Se rum or PlasmaOrdered By: Modesta Chand on 05-26-2022 Ferritin [Mass/Vol] 14.2 ng/mL 11-306.8 [facility] Folate [Mass/volume] in Seru m or [...] on 05-26-2022 Globulin (S) [Mass/Vol] 2.3 g/dL [facility] Glucose mean value [Mass/vol ume] in Blood Estimated from glycated hemoglobinOrdered By: Modesta Chand on 05-26-2022 Average glucose Estimated from glycated hemoglobin (Bld) [Mass/Vol] 111 mg/dL [facility] Hematocrit Auto (Bld) [Volum e fraction]Ordered By: Modesta Chand on 05-26-2022 Hematocrit (Bld) [Volume fraction] 41.4 % 36.0-46.0 [facility] Hemoglobin A1c percentageOrd ered By: Modesta Chand on 05-26-2022 HbA1c (Bld) [Mass fraction] 5.5 % 4.3-5.6 [facility] Comment on above: Increased risk for d iabetes: 5.7 - 6.4 diabetes: >6.4 glycemic control for adults with diabetes: <7.0 Iron [Mass/volume] in Serum or PlasmaOrdered By: Modesta Chand on 05-26-2022 Iron [Mass/Vol] 63 ug/dL 40-150 [facility] Iron binding capacity [Mass/ volume] in Serum or PlasmaOrdered By: Modesta Chand on 05-26-2022 Iron binding capacity [Mass/Vol] 409 ug/dL 255-450 [facility] Iron saturation [Mass Fracti on] in Serum or PlasmaOrdered By: Modesta Chand on 05-26-2022 Iron saturation [Mass fraction] 15.0 % 20-50 [facility] Laboratory - Chemistry and C hemistry - challengeOrdered By: Modesta Chand on 05-26-2022 Cobalamin (Vitamin B12) [Mass/Vol] 329 pg/mL 180-914 [facility] Laboratory - Hematology and Cell countsOrdered By: Modesta Chand on 05-26-2022 Nucleated RBC/100 WBC (Bld) [Ratio] 0.0 % 0-0.5 [facility] Lymphocytes Auto (Bld) [#/Vo l]Ordered By: Modesta Chand on 05-26-2022 Lymphocytes (Bld) [#/Vol] 2.3 10*3/uL 1.20-4.8 [facility] Lymphocytes/100 WBC Auto (Bl d)Ordered By: Modesta Chand on 05-26-2022 Lymphocytes/100 WBC (Bld) 21.6 % . [facility] MCH Auto (RBC) [Entitic mass ]Ordered By: Modesta Chand on 05-26-2022 MCH (RBC) [Entitic mass] 28.6 pg 25.0-35.0 [facility] MCHC Auto (RBC) [Mass/Vol]Or dered By: Modesta Chand on 05-26-2022 MCHC (RBC) [Mass/Vol] 33.0 g/dL 31.0-37.0 [facility] MCV Auto (RBC) [Entitic vol] Ordered By: Modesta Chand on 05-26-2022 MCV (RBC) [Entitic vol] 86.6 fL 78-102 [facility] Monocytes Auto (Bld) [#/Vol] Ordered By: Modesta Chand on 05-26-2022 Monocytes (Bld) [#/Vol] 0.6 10*3/uL 0.1-1.00 [facility] Monocytes/100 WBC Auto (Bld) Ordered By: Modesta Chand on 05-26-2022 Monocytes/100 WBC (Bld) 5.9 % . [facility] Neutrophils Auto (Bld) [#/Vo l]Ordered By: Modesta Chand on 05-26-2022 Neutrophils (Bld) [#/Vol] 7.2 10*3/uL 1.2-7.7 [facility] Neutrophils/100 WBC Auto (Bl d)Ordered By: Modesta Chand on 05-26-2022 Neutrophils/100 WBC (Bld) 67.8 % . [facility] No Panel InformationOrdered By: Modesta Chand on 05-26-2022 25-Hydroxy Vitamin D Total 26.9 ng/mL 30-100 [facility] Comment on above: VITAMIN D STATUS 25( [place])VITAMIN D RANGE (ng/mL) Deficient <20 Insufficient 20 to <30 Sufficient 30 to 100 Reference: Dainca MF,Chayo NC, Sony ZULETA, et al. Evaluation,treatment, and prevention of vitamin D deficiency; an Endocrine Society clinical practice guideline. JCEM. 2010; 96(7):1911-30. Estimated GFR () > 60 mL/Min [facility] Comment on above: GFR estimated refere nce range: According to KDOQI guidelines, <60 ml/min/1.73m2 is sufficient to diagnose a patient with chronic kidney disease. Pharmacy Creatinine Clearance (Chem N/A [facility] Platelet mean volume Auto (B ld) [Entitic vol]Ordered By: Modesta Chand on 05-26-2022 Platelet mean volume (Bld) [Entitic vol] 8.9 fL 6.3-10.7 [facility] Platelets Auto (Bld) [#/Vol] Ordered By: Modesta Chand on 05-26-2022 Platelets (Bld) [#/Vol] 286 10*3/uL 150-450 [facility] Protein [Mass/volume] in Ser um or PlasmaOrdered By: Modesta Chand on 05-26-2022 Protein [Mass/Vol] 6.2 g/dL 6.1-7.9 [facility] RBC Auto (Bld) [#/Vol]Ordere d By: Modesta Chand on 05-26-2022 RBC (Bld) [#/Vol] 4.78 10*6/uL 4.10-5.10 [facility] Serum nuclear antibody titer Ordered By: Modesta Chand on 05-26-2022 Nuclear Ab (S) [Titer] Negative . [facility] Comment on above: Negative <1:80 Borderline 1:80 Positive >1:80 ICAP nomenclature: AC-0 For more information about Hep-2 cell patterns use ANApatterns.org, the official website for the International Consensus on Antinuclear Antibody (EDMOND) Patterns (ICAP). Performed at: [facility] [id number] [employer] Engineer: James Nelson PhD, Phone: [phone] Serum or plasma alanine florez otransferase measurement without P-5'-P (enzymatic activiOrdered By: Modesta Chand on 05-26-2022 ALT No additional P-5'-P [Catalytic activity/Vol] 50 U/L 10-60 [facility] Serum or plasma albumin/glob ulin mass ratioOrdered By: Modesta Chand on 05-26-2022 Albumin/Globulin [Mass ratio] 1.7 {ratio} [facility] Serum or plasma alkaline justin sphatase measurement (enzymatic activity/volume)Ordered By: Modesta Chand on 05-26-2022 ALP [Catalytic activity/Vol] 58 U/L 32-92 [facility] Serum or plasma aspartate am inotransferase measurement (enzymatic activity/volume)Ordered By: Modesta Chand on 05-26-2022 AST [Catalytic activity/Vol] 25 U/L 10-42 [facility] Serum or plasma calcium tammy urement (mass/volume)Ordered By: Modesta Chand on 05-26-2022 Calcium [Mass/Vol] 9.3 mg/dL 8.2-10.2 [facility] Serum or plasma chloride judy surement (moles/volume)Ordered By: Modesta Chand on 05-26-2022 Chloride [Moles/Vol] 103 mmol/L 95-114 [facility] Serum or plasma glucose tammy urement (mass/volume)Ordered By: Modesta Chand on 05-26-2022 Glucose [Mass/Vol] 111 mg/dL 70-100 [facility] Comment on above: ADA recommended refe rence range Random Glucose Reference Range is dependent on time and content of last meal. Glucose of more than 200 mg/dL in a nonstressed, ambulatory subject supports the diagnosis of Diabetes Mellitus. Serum or plasma potassium me asurement (moles/volume)Ordered By: Modesta Chand on 05-26-2022 Potassium [Moles/Vol] 4.3 mmol/L 3.5-5.1 [facility] Serum or plasma sodium measu rement (moles/volume)Ordered By: Modesta Chand on 05-26-2022 Sodium [Moles/Vol] 137 mmol/L 136-146 [facility] Serum or plasma total biliru bin measurement (mass/volume)Ordered By: Modesta Chand on 05-26-2022 Bilirubin [Mass/Vol] 0.5 mg/dL 0.3-1.2 [facility] Serum or plasma total carbon dioxide measurement (moles/volume)Ordered By: Modesta Chand on 05-26-2022 CO2 [Moles/Vol] 24.9 mmol/L 22.0-30.0 [facility] Serum or plasma urea nitroge n measurement (mass/volume)Ordered By: Modesta Chand on 05-26-2022 Urea nitrogen [Mass/Vol] 9 mg/dL 9-23 [facility] Urine culture routineOrdered By: Gilson Castro on 05-18-2022 Bacteria identified Cx Nom (U) [address] [facility] Amphetamine Screen Ql (U)Ord ered By: Gilson Castro on 05-16-2022 Amphetamines Ql (U) Negative Negative [facility] Automated erythrocytes count in urine sediment (number/area)Ordered By: Gilson Castro on 05-16-2022 RBC Auto (Urine sed) [#/Area] 3-4 [HPF] 0-4 [facility] Automated leukocytes count i n urine sediment (number/area)Ordered By: Gilson Castro on 05-16-2022 WBC Auto (Urine sed) [#/Area] 5-9 [HPF] 0-4 [facility] Automated urine hyaline cast s count (number/volume)Ordered By: Gilson Castro on 05-16-2022 Hyaline casts Auto (U) [#/Vol] None seen [LPF] 0-1 [facility] Barbiturates [Presence] in U rineOrdered By: Gilson Castro on 05-16-2022 Barbiturates Ql (U) Positive Negative [facility] Basophils Auto (Bld) [#/Vol] Ordered By: Gilson Castro on 05-16-2022 Basophils (Bld) [#/Vol] 0.0 10*3/uL 0.0-0.1 [facility] Basophils/100 WBC Auto (Bld) Ordered By: Gilson Castro on 05-16-2022 Basophils/100 WBC (Bld) 0.4 % . [facility] Benzodiazepines [Presence] i n UrineOrdered By: Gilson Castro on 05-16-2022 Benzodiazepines Ql (U) Negative Negative [facility] Bilirubin Test strip Ql (U)O rdered By: Gilson Castro on 05-16-2022 Bilirubin Ql (U) Negative Negative [facility] Blood hemoglobin measurement (mass/volume)Ordered By: Gilson Castro on 05-16-2022 Hemoglobin (Bld) [Mass/Vol] 13.4 g/dL 12.0-16.0 [facility] Blood leukocytes automated c ount (number/volume)Ordered By: Gilson Castro on 05-16-2022 WBC (Bld) [#/Vol] 10.0 10*3/uL 4.5-13.5 [facility] Body fluid albumin measureme nt (mass/volume)Ordered By: Gilson Castro on 05-16-2022 Albumin (Body fld) [Mass/Vol] 4.3 g/dL 3.2-5.5 [facility] Cannabinoids [Presence] in U rine by Screen methodOrdered By: Gilson Castro on 06-19-2022 Cannabinoids Screen Ql (U) Positive Negative [facility] Comment on above: These are unconfirme [...] (Urine sed) None seen [LPF] None Seen [facility] Color Auto (U)Ordered By: Pierce Castro on 05-16-2022 Color (U) Yellow Yellow [facility] Creatinine and Glomerular fi ltration rate.predicted panel (S/P/Bld)Ordered By: Gilson Castro on 05-16-2022 Creatinine [Mass/Vol] 0.80 mg/dL 0.44-1.03 [facility] Eosinophils Auto (Bld) [#/Vo l]Ordered By: Gilson Castro on 05-16-2022 Eosinophils (Bld) [#/Vol] 0.1 10*3/uL 0.0-0.7 [facility] Eosinophils/100 WBC Auto (Bl d)Ordered By: Gilson Castro on 05-16-2022 Eosinophils/100 WBC (Bld) 0.7 % . [facility] Erythrocyte distribution wid th Auto (RBC) [Ratio]Ordered By: Gilson Castro on 05-16-2022 Erythrocyte distribution width (RBC) [Ratio] 13.4 % 11.9-15.3 [facility] Estimated glomerular filtrat ion rate (GFR) non- AmericanOrdered By: Gilson Castro on 05-16-2022 GFR/1.73 sq M.predicted among non-blacks MDRD (S/P/Bld) [Vol rate/Area] > 60 mL/Min [facility] Globulin Calc (S) [Mass/Vol] Ordered By: Gilson Castro on 05-16-2022 Globulin (S) [Mass/Vol] 2.7 g/dL [facility] HCG ( test) IA.rapi d Ql (U)Ordered By: Gilson Castro on 05-16-2022 HCG ( test) Ql (U) Negative [facility] Hematocrit Auto (Bld) [Volum e fraction]Ordered By: Gilson Castro on 05-16-2022 Hematocrit (Bld) [Volume fraction] 39.4 % 36.0-46.0 [facility] Ketones Auto test strip (U) [Mass/Vol]Ordered By: Gilson Castro on 05-16-2022 Ketones (U) [Mass/Vol] 3+ Negative Fi [facility] Laboratory - Chemistry and C hemistry - challengeOrdered By: Gilson Castro on 05-16-2022 Lipase [Catalytic activity/Vol] 26.0 U/L 22-51 [facility] Laboratory - Drug toxicology Ordered By: Gilson Castro on 05-16-2022 Opiates Ql (U) Negative Negative [facility] Laboratory - Hematology and Cell countsOrdered By: Gilson Castro on 05-16-2022 Nucleated RBC/100 WBC (Bld) [Ratio] 0.0 % 0-0.5 [facility] Lymphocytes Auto (Bld) [#/Vo l]Ordered By: Gilson Castro on 05-16-2022 Lymphocytes (Bld) [#/Vol] 1.9 10*3/uL 1.20-4.8 [facility] Lymphocytes/100 WBC Auto (Bl d)Ordered By: Gilson Castro on 05-16-2022 Lymphocytes/100 WBC (Bld) 18.7 % . [facility] MCH Auto (RBC) [Entitic mass ]Ordered By: Gilson Castro on 05-16-2022 MCH (RBC) [Entitic mass] 28.6 pg 25.0-35.0 [facility] MCHC Auto (RBC) [Mass/Vol]Or dered By: Gilson Castro on 05-16-2022 MCHC (RBC) [Mass/Vol] 34.1 g/dL 31.0-37.0 [facility] MCV Auto (RBC) [Entitic vol] Ordered By: Gilson Castro on 05-16-2022 MCV (RBC) [Entitic vol] 84.0 fL 78-102 [facility] Monocytes Auto (Bld) [#/Vol] Ordered By: Gilson Castro on 05-16-2022 Monocytes (Bld) [#/Vol] 0.9 10*3/uL 0.1-1.00 [facility] Monocytes/100 WBC Auto (Bld) Ordered By: Gilson Castro on 05-16-2022 Monocytes/100 WBC (Bld) 9.2 % . [facility] Neutrophils Auto (Bld) [#/Vo l]Ordered By: Gilson Castro on 05-16-2022 Neutrophils (Bld) [#/Vol] 7.1 10*3/uL 1.2-7.7 [facility] Neutrophils/100 WBC Auto (Bl d)Ordered By: Gilson Castro on 05-16-2022 Neutrophils/100 WBC (Bld) 71.0 % . [facility] Nitrite Test strip Ql (U)Ord ered By: Gilson Castro on 05-16-2022 Nitrite Ql (U) Negative Negative [facility] No Panel InformationOrdered By: Gilson Castro on 05-16-2022 Estimated GFR () > 60 mL/Min [facility] Comment on above: GFR estimated refere nce range: According to KDOQI guidelines, <60 ml/min/1.73m2 is sufficient to diagnose a patient with chronic kidney disease. Pharmacy Creatinine Clearance (Chem 109.65 [facility] Phencyclidine Screen Ql (U)O rdered By: Gilson Castro on 05-16-2022 Phencyclidine Ql (U) Negative Negative [facility] Platelet mean volume Auto (B ld) [Entitic vol]Ordered By: Gilson Castro on 05-16-2022 Platelet mean volume (Bld) [Entitic vol] 8.5 fL 6.3-10.7 [facility] Platelets Auto (Bld) [#/Vol] Ordered By: Gilson Castro on 05-16-2022 Platelets (Bld) [#/Vol] 241 10*3/uL 150-450 [facility] Protein Auto test strip (U) [Mass/Vol]Ordered By: Gilson Castro on 05-16-2022 Protein (U) [Mass/Vol] Trace mg/dL Negative [facility] Protein [Mass/volume] in Ser um or PlasmaOrdered By: Gilson Castro on 05-16-2022 Protein [Mass/Vol] 7.0 g/dL 6.1-7.9 [facility] RBC Auto (Bld) [#/Vol]Ordere d By: Gilson Castro on 05-16-2022 RBC (Bld) [#/Vol] 4.69 10*6/uL 4.10-5.10 [facility] Serum or plasma alanine florez otransferase measurement without P-5'-P (enzymatic activiOrdered By: Gilson Castro on 05-16-2022 ALT No additional P-5'-P [Catalytic activity/Vol] 23 U/L 10-60 [facility] Serum or plasma albumin/glob ulin mass ratioOrdered By: Gilson Castro on 05-16-2022 Albumin/Globulin [Mass ratio] 1.6 {ratio} [facility] Serum or plasma alkaline justin sphatase measurement (enzymatic activity/volume)Ordered By: Gilson Castro on 05-16-2022 ALP [Catalytic activity/Vol] 58 U/L 32-92 [facility] Serum or plasma aspartate am inotransferase measurement (enzymatic activity/volume)Ordered By: Gilson Castro on 05-16-2022 AST [Catalytic activity/Vol] 22 U/L 10-42 [facility] Serum or plasma calcium tammy urement (mass/volume)Ordered By: Gilson Castro on 05-16-2022 Calcium [Mass/Vol] 9.2 mg/dL 8.2-10.2 [facility] Serum or plasma chloride judy surement (moles/volume)Ordered By: Gilson Castro on 05-16-2022 Chloride [Moles/Vol] 97 mmol/L 95-114 [facility] Serum or plasma glucose tammy urement (mass/volume)Ordered By: Gilson Castro on 05-16-2022 Glucose [Mass/Vol] 90 mg/dL 70-100 [facility] Comment on above: ADA recommended refe rence range Random Glucose Reference Range is dependent on time and content of last meal. Glucose of more than 200 mg/dL in a nonstressed, ambulatory subject supports the diagnosis of Diabetes Mellitus. Serum or plasma potassium me asurement (moles/volume)Ordered By: Gilson Castro on 05-16-2022 Potassium [Moles/Vol] 3.2 mmol/L 3.5-5.1 [facility] Serum or plasma sodium measu rement (moles/volume)Ordered By: Gilson Castro on 05-16-2022 Sodium [Moles/Vol] 135 mmol/L 136-146 [facility] Serum or plasma total biliru bin measurement (mass/volume)Ordered By: Gilson Castro on 05-16-2022 Bilirubin [Mass/Vol] 1.0 mg/dL 0.3-1.2 [facility] Serum or plasma total carbon dioxide measurement (moles/volume)Ordered By: Gilson Castro on 05-16-2022 CO2 [Moles/Vol] 24.6 mmol/L 22.0-30.0 [facility] Serum or plasma urea nitroge n measurement (mass/volume)Ordered By: Gilson Castro on 05-16-2022 Urea nitrogen [Mass/Vol] 23 mg/dL 9- [facility] Specific gravity Auto test s trip (U) [Rel density]Ordered By: Gilson Castro on 05-16-2022 Specific gravity (U) [Rel density] 1.023 1.001-1.[address] [facility] Squamous epithelial cells de tection in urine sediment by light microscopyOrdered By: Gilson Castro on 05-16-2022 Epithelial cells.squamous LM Ql (Urine sed) 20-30 [HPF] 0-2 [facility] Urine bacteria detection by automated methodOrdered By: Gilson Castro on 05-16-2022 Bacteria Auto Ql (U) 1+ None Seen [facility] Urine clarity by refractomet ry automatedOrdered By: Gilson Castro on 05-16-2022 Clarity Refractometry automated (U) Turbid Clear [facility] Urine cocaine detectionOrder ed By: Gilson Castro on 05-16-2022 Cocaine Ql (U) Negative Negative [facility] Urine glucose measurement by automated test strip (mass/volume)Ordered By: Gilson Castro on 05-16-2022 Glucose Auto test strip (U) [Mass/Vol] Normal mg/dL Normal [facility] Urine hemoglobin detection b y automated test stripOrdered By: Gilson Castro on 05-16-2022 Hemoglobin Auto test strip Ql (U) Negative Negative [facility] Urine leukocyte esterase det ection by automated test stripOrdered By: Gilson Castro on 05-16-2022 Leukocyte esterase Auto test strip Ql (U) 2+ Negative [facility] Urobilinogen Auto test strip (U) [Mass/Vol]Ordered By: Gilson Castro on 05-16-2022 Urobilinogen (U) [Mass/Vol] Normal mg/dL Normal [facility] pH Auto test strip (U)Ordere d By: Gilson Castro on 05-16-2022 pH (U) 8.0 [pH] 5.0-9.0 [facility] Albumin [Mass/volume] in Ser um or PlasmaOrdered By: Art Bianchi on 05-15-2022 Albumin [Mass/Vol] 4.7 g/dL 3.2-5.5 [facility] Basophils Auto (Bld) [#/Vol] Ordered By: Art Bianchi on 05-15-2022 Basophils (Bld) [#/Vol] 0.0 10*3/uL 0.0-0.1 [facility] Basophils/100 WBC Auto (Bld) Ordered By: Art Bianchi on 05-15-2022 Basophils/100 WBC (Bld) 0.2 % . [facility] Blood hemoglobin measurement (mass/volume)Ordered By: Art Bianchi on 05-15-2022 Hemoglobin (Bld) [Mass/Vol] 13.6 g/dL 12.0-16.0 [facility] Blood leukocytes automated c ount (number/volume)Ordered By: Art Bianchi on 05-15-2022 WBC (Bld) [#/Vol] 14.0 10*3/uL 4.5-13.5 [facility] Creatinine and Glomerular fi ltration rate.predicted panel (S/P/Bld)Ordered By: Art Bianchi on 05-15-2022 Creatinine [Mass/Vol] 0.76 mg/dL 0.44-1.03 [facility] Eosinophils Auto (Bld) [#/Vo l]Ordered By: Art Bianchi on 05-15-2022 Eosinophils (Bld) [#/Vol] 0.0 10*3/uL 0.0-0.7 [facility] Eosinophils/100 WBC Auto (Bl d)Ordered By: Art Bianchi on 05-15-2022 Eosinophils/100 WBC (Bld) 0.4 % . [facility] Erythrocyte distribution wid th Auto (RBC) [Ratio]Ordered By: Art Bianchi on 05-15-2022 Erythrocyte distribution width (RBC) [Ratio] 13.7 % 11.9-15.3 [facility] Estimated glomerular filtrat ion rate (GFR) non- AmericanOrdered By: Art Bianchi on 05-15-2022 GFR/1.73 sq M.predicted among non-blacks MDRD (S/P/Bld) [Vol rate/Area] > 60 mL/Min [facility] Globulin Calc (S) [Mass/Vol] Ordered By: Art Bianchi on 05-15-2022 Globulin (S) [Mass/Vol] 3.2 g/dL [facility] Hematocrit Auto (Bld) [Volum e fraction]Ordered By: Art Bianchi on 05-15-2022 Hematocrit (Bld) [Volume fraction] 41.0 % 36.0-46.0 [facility] Laboratory - Chemistry and C hemistry - challengeOrdered By: Art Bianchi on 05-15-2022 Lipase [Catalytic activity/Vol] 24.0 U/L 22-51 [facility] Laboratory - Hematology and Cell countsOrdered By: Art Bianchi on 05-15-2022 Nucleated RBC/100 WBC (Bld) [Ratio] 0.0 % 0-0.5 [facility] Lymphocytes Auto (Bld) [#/Vo l]Ordered By: Art Bianchi on 05-15-2022 Lymphocytes (Bld) [#/Vol] 2.6 10*3/uL 1.20-4.8 [facility] Lymphocytes/100 WBC Auto (Bl d)Ordered By: Art Bianchi on 05-15-2022 Lymphocytes/100 WBC (Bld) 18.4 % . [facility] MCH Auto (RBC) [Entitic mass ]Ordered By: Art Bianchi on 05-15-2022 MCH (RBC) [Entitic mass] 28.0 pg 25.0-35.0 [facility] MCHC Auto (RBC) [Mass/Vol]Or dered By: Art Bianchi on 05-15-2022 MCHC (RBC) [Mass/Vol] 33.3 g/dL 31.0-37.0 [facility] MCV Auto (RBC) [Entitic vol] Ordered By: Art Bianchi on 05-15-2022 MCV (RBC) [Entitic vol] 84.1 fL 78-102 [facility] Monocytes Auto (Bld) [#/Vol] Ordered By: Art Bianchi on 05-15-2022 Monocytes (Bld) [#/Vol] 1.2 10*3/uL 0.1-1.00 [facility] Monocytes/100 WBC Auto (Bld) Ordered By: Art Bianchi on 05-15-2022 Monocytes/100 WBC (Bld) 8.3 % . [facility] Neutrophils Auto (Bld) [#/Vo l]Ordered By: Art Bianchi on 05-15-2022 Neutrophils (Bld) [#/Vol] 10.2 10*3/uL 1.2-7.7 [facility] Neutrophils/100 WBC Auto (Bl d)Ordered By: Art Bianchi on 05-15-2022 Neutrophils/100 WBC (Bld) 72.7 % . [facility] No Panel InformationOrdered By: Art Bianchi on 05-15-2022 Estimated GFR () > 60 mL/Min [facility] Comment on above: GFR estimated refere nce range: According to KDOQI guidelines, <60 ml/min/1.73m2 is sufficient to diagnose a patient with chronic kidney disease. Pharmacy Creatinine Clearance (Chem 115.34 [facility] Platelet mean volume Auto (B ld) [Entitic vol]Ordered By: Art Biacnhi on 05-15-2022 Platelet mean volume (Bld) [Entitic vol] 8.8 fL 6.3-10.7 [facility] Platelets Auto (Bld) [#/Vol] Ordered By: Art Bianchi on 05-15-2022 Platelets (Bld) [#/Vol] 315 10*3/uL 150-450 [facility] Protein [Mass/volume] in Ser um or PlasmaOrdered By: Art Bianchi on 05-15-2022 Protein [Mass/Vol] 7.9 g/dL 6.1-7.9 [facility] RBC Auto (Bld) [#/Vol]Ordere d By: Art Bianchi on 05-15-2022 RBC (Bld) [#/Vol] 4.88 10*6/uL 4.10-5.10 [facility] Serum or plasma alanine florez otransferase measurement without P-5'-P (enzymatic activiOrdered By: Art Bianchi on 05-15-2022 ALT No additional P-5'-P [Catalytic activity/Vol] 25 U/L 10-60 [facility] Serum or plasma albumin/glob ulin mass ratioOrdered By: Art Bianchi on 05-15-2022 Albumin/Globulin [Mass ratio] 1.5 {ratio} [facility] Serum or plasma alkaline justin sphatase measurement (enzymatic activity/volume)Ordered By: Art Bianchi on 05-15-2022 ALP [Catalytic activity/Vol] 66 U/L 32-92 [facility] Serum or plasma aspartate am inotransferase measurement (enzymatic activity/volume)Ordered By: Art Bianchi on 05-15-2022 AST [Catalytic activity/Vol] 33 U/L 10-42 [facility] Serum or plasma calcium tammy urement (mass/volume)Ordered By: Art Bianchi on 05-15-2022 Calcium [Mass/Vol] 10.1 mg/dL 8.2-10.2 [facility] Serum or plasma chloride judy surement (moles/volume)Ordered By: Art Bianchi on 05-15-2022 Chloride [Moles/Vol] 94 mmol/L 95-114 [facility] Serum or plasma glucose tammy urement (mass/volume)Ordered By: Art Bianchi on 05-15-2022 Glucose [Mass/Vol] 102 mg/dL 70-100 [facility] Comment on above: ADA recommended refe rence range Random Glucose Reference Range is dependent on time and content of last meal. Glucose of more than 200 mg/dL in a nonstressed, ambulatory subject supports the diagnosis of Diabetes Mellitus. Serum or plasma potassium me asurement (moles/volume)Ordered By: Art Bianchi on 05-15-2022 Potassium [Moles/Vol] 3.1 mmol/L 3.5-5.1 [facility] Serum or plasma sodium measu rement (moles/volume)Ordered By: Art Bianchi on 05-15-2022 Sodium [Moles/Vol] 135 mmol/L 136-146 [facility] Serum or plasma total biliru bin measurement (mass/volume)Ordered By: Art Bianchi on 05-15-2022 Bilirubin [Mass/Vol] 1.2 mg/dL 0.3-1.2 [facility] Serum or plasma total carbon dioxide measurement (moles/volume)Ordered By: Art Bianchi on 05-15-2022 CO2 [Moles/Vol] 22.2 mmol/L 22.0-30.0 [facility] Serum or plasma urea nitroge n measurement (mass/volume)Ordered By: rAt Bianchi on 05-15-2022 Urea nitrogen [Mass/Vol] 23 mg/dL 9-23 [facility] Albumin [Mass/volume] in Ser um or PlasmaOrdered By: Art Bianchi on 05-13-2022 Albumin [Mass/Vol] 4.3 g/dL 3.2-5.5 [facility] Automated erythrocytes count in urine sediment (number/area)Ordered By: Art Bianchi on 05-13-2022 RBC Auto (Urine sed) [#/Area] 1-2 [HPF] 0-4 [facility] Automated leukocytes count i n urine sediment (number/area)Ordered By: Art Bianchi on 05-13-2022 WBC Auto (Urine sed) [#/Area] 1-2 [HPF] 0-4 [facility] Basophils Auto (Bld) [#/Vol] Ordered By: Art Bianchi on 05-13-2022 Basophils (Bld) [#/Vol] 0.1 10*3/uL 0.0-0.1 [facility] Basophils/100 WBC Auto (Bld) Ordered By: Art Bianchi on 05-13-2022 Basophils/100 WBC (Bld) 1.0 % . [facility] Bilirubin Test strip Ql (U)O rdered By: Art Bianchi on 05-13-2022 Bilirubin Ql (U) Negative Negative [facility] Blood hemoglobin measurement (mass/volume)Ordered By: Art Bianchi on 05-13-2022 Hemoglobin (Bld) [Mass/Vol] 13.7 g/dL 12.0-16.0 [facility] Blood leukocytes automated c ount (number/volume)Ordered By: Art Bianchi on 05-13-2022 WBC (Bld) [#/Vol] 10.4 10*3/uL 4.5-13.5 [facility] Color Auto (U)Ordered By: Adrian Bianchi on 05-13-2022 Color (U) Yellow Yellow [facility] Creatinine and Glomerular fi ltration rate.predicted panel (S/P/Bld)Ordered By: Art Bianchi on 05-13-2022 Creatinine [Mass/Vol] 0.76 mg/dL 0.44-1.03 [facility] Eosinophils Auto (Bld) [#/Vo l]Ordered By: Art Bianchi on 05-13-2022 Eosinophils (Bld) [#/Vol] 0.5 10*3/uL 0.0-0.7 [facility] Eosinophils/100 WBC Auto (Bl d)Ordered By: Art Bianchi on 05-13-2022 Eosinophils/100 WBC (Bld) 4.6 % . [facility] Erythrocyte distribution wid th Auto (RBC) [Ratio]Ordered By: Art Bianchi on 05-13-2022 Erythrocyte distribution width (RBC) [Ratio] 13.6 % 11.9-15.3 [facility] Estimated glomerular filtrat ion rate (GFR) non- AmericanOrdered By: Art Bianchi on 05-13-2022 GFR/1.73 sq M.predicted among non-blacks MDRD (S/P/Bld) [Vol rate/Area] > 60 mL/Min [facility] Globulin Calc (S) [Mass/Vol] Ordered By: Art Bianchi on 05-13-2022 Globulin (S) [Mass/Vol] 2.7 g/dL [facility] HCG ( test) IA.rapi d Ql (U)Ordered By: Art Bianchi on 05-13-2022 HCG ( test) Ql (U) Negative [facility] Hematocrit Auto (Bld) [Volum e fraction]Ordered By: Art Bianchi on 05-13-2022 Hematocrit (Bld) [Volume fraction] 40.5 % 36.0-46.0 [facility] Ketones Auto test strip (U) [Mass/Vol]Ordered By: Art Bianchi on 05-13-2022 Ketones (U) [Mass/Vol] Trace Negative [facility] Laboratory - Hematology and Cell countsOrdered By: Art Bianchi on 05-13-2022 Nucleated RBC/100 WBC (Bld) [Ratio] 0.0 % 0-0.5 [facility] Laboratory - UrinalysisOrder ed By: Art Bianchi on 05-13-2022 Hyaline casts LM Ql (Urine sed) 0-8 [LPF] 0-8 [facility] Lymphocytes Auto (Bld) [#/Vo l]Ordered By: Art Bianchi on 05-13-2022 Lymphocytes (Bld) [#/Vol] 1.4 10*3/uL 1.20-4.8 [facility] Lymphocytes/100 WBC Auto (Bl d)Ordered By: Art Bianchi on 05-13-2022 Lymphocytes/100 WBC (Bld) 13.1 % . [facility] MCH Auto (RBC) [Entitic mass ]Ordered By: Art Bianchi on 05-13-2022 MCH (RBC) [Entitic mass] 28.6 pg 25.0-35.0 [facility] MCHC Auto (RBC) [Mass/Vol]Or dered By: Art Bianchi on 05-13-2022 MCHC (RBC) [Mass/Vol] 33.7 g/dL 31.0-37.0 [facility] MCV Auto (RBC) [Entitic vol] Ordered By: Art Bianchi on 05-13-2022 MCV (RBC) [Entitic vol] 84.7 fL 78-102 [facility] Monocytes Auto (Bld) [#/Vol] Ordered By: Art Bianchi on 05-13-2022 Monocytes (Bld) [#/Vol] 0.4 10*3/uL 0.1-1.00 [facility] Monocytes/100 WBC Auto (Bld) Ordered By: Art Bianchi on 05-13-2022 Monocytes/100 WBC (Bld) 4.2 % . [facility] Neutrophils Auto (Bld) [#/Vo l]Ordered By: Art Bianchi on 05-13-2022 Neutrophils (Bld) [#/Vol] 8.0 10*3/uL 1.2-7.7 [facility] Neutrophils/100 WBC Auto (Bl d)Ordered By: Art Bianchi on 05-13-2022 Neutrophils/100 WBC (Bld) 77.1 % . [facility] Nitrite Test strip Ql (U)Ord ered By: Art Bianchi on 05-13-2022 Nitrite Ql (U) Negative Negative [facility] No Panel InformationOrdered By: Art Bianchi on 05-13-2022 Estimated GFR () > 60 mL/Min [facility] Comment on above: GFR estimated refere nce range: According to KDOQI guidelines, <60 ml/min/1.73m2 is sufficient to diagnose a patient with chronic kidney disease. Pharmacy Creatinine Clearance (Chem 112.80 [facility] Platelet mean volume Auto (B ld) [Entitic vol]Ordered By: Art Bianchi on 05-13-2022 Platelet mean volume (Bld) [Entitic vol] 8.6 fL 6.3-10.7 [facility] Platelets Auto (Bld) [#/Vol] Ordered By: Art Bianchi on 05-13-2022 Platelets (Bld) [#/Vol] 264 10*3/uL 150-450 [facility] Protein Auto test strip (U) [Mass/Vol]Ordered By: Art Bianchi on 05-13-2022 Protein (U) [Mass/Vol] 30 mg/dL Negative [facility] Protein [Mass/volume] in Ser um or PlasmaOrdered By: Art Bianchi on 05-13-2022 Protein [Mass/Vol] 7.0 g/dL 6.1-7.9 [facility] RBC Auto (Bld) [#/Vol]Ordere d By: Art Bianchi on 05-13-2022 RBC (Bld) [#/Vol] 4.78 10*6/uL 4.10-5.10 [facility] Serum or plasma alanine florez otransferase measurement without P-5'-P (enzymatic activiOrdered By: Art Bianchi on 05-13-2022 ALT No additional P-5'-P [Catalytic activity/Vol] 19 U/L 10-60 [facility] Serum or plasma albumin/glob ulin mass ratioOrdered By: Art Bianchi on 05-13-2022 Albumin/Globulin [Mass ratio] 1.6 {ratio} [facility] Serum or plasma alkaline justin sphatase measurement (enzymatic activity/volume)Ordered By: Art Bianchi on 05-13-2022 ALP [Catalytic activity/Vol] 69 U/L 32-92 [facility] Serum or plasma aspartate am inotransferase measurement (enzymatic activity/volume)Ordered By: Art Bianchi on 05-13-2022 AST [Catalytic activity/Vol] 19 U/L 10-42 [facility] Serum or plasma calcium tammy urement (mass/volume)Ordered By: Art Bianchi on 05-13-2022 Calcium [Mass/Vol] 9.9 mg/dL 8.2-10.2 [facility] Serum or plasma chloride judy surement (moles/volume)Ordered By: Art Bianchi on 05-13-2022 Chloride [Moles/Vol] 107 mmol/L 95-114 [facility] Serum or plasma glucose tammy urement (mass/volume)Ordered By: Art Bianchi on 05-13-2022 Glucose [Mass/Vol] 140 mg/dL 70-100 [facility] Comment on above: ADA recommended refe rence range Random Glucose Reference Range is dependent on time and content of last meal. Glucose of more than 200 mg/dL in a nonstressed, ambulatory subject supports the diagnosis of Diabetes Mellitus. Serum or plasma potassium me asurement (moles/volume)Ordered By: Art Bianchi on 05-13-2022 Potassium [Moles/Vol] 3.7 mmol/L 3.5-5.1 [facility] Serum or plasma sodium measu rement (moles/volume)Ordered By: Art Bianchi on 05-13-2022 Sodium [Moles/Vol] 138 mmol/L 136-146 [facility] Serum or plasma total biliru bin measurement (mass/volume)Ordered By: Art Bianchi on 05-13-2022 Bilirubin [Mass/Vol] 0.5 mg/dL 0.3-1.2 [facility] Serum or plasma total carbon dioxide measurement (moles/volume)Ordered By: Art Bianchi on 05-13-2022 CO2 [Moles/Vol] 19.0 mmol/L 22.0-30.0 [facility] Serum or plasma urea nitroge n measurement (mass/volume)Ordered By: Art Bianchi on 05-13-2022 Urea nitrogen [Mass/Vol] 11 mg/dL 9-23 [facility] Specific gravity Auto test s trip (U) [Rel density]Ordered By: Art Bianchi on 05-13-2022 Specific gravity (U) [Rel density] 1.018 1.001-1.[address] [facility] Squamous epithelial cells de tection in urine sediment by light microscopyOrdered By: Art Bianchi on 05-13-2022 Epithelial cells.squamous LM Ql (Urine sed) 20-30 [HPF] 0-2 [facility] Urine bacteria detection by automated methodOrdered By: Art Bianchi on 05-13-2022 Bacteria Auto Ql (U) 2+ None Seen [facility] Urine clarity by refractomet ry automatedOrdered By: Art Bianchi on 05-13-2022 Clarity Refractometry automated (U) Cloudy Clear [facility] Urine glucose measurement by automated test strip (mass/volume)Ordered By: Art Bianchi on 05-13-2022 Glucose Auto test strip (U) [Mass/Vol] Normal mg/dL Normal [facility] Urine hemoglobin detection b y automated test stripOrdered By: Art Bianchi on 05-13-2022 Hemoglobin Auto test strip Ql (U) Negative Negative [facility] Urine leukocyte esterase det ection by automated test stripOrdered By: Art Bianchi on 05-13-2022 Leukocyte esterase Auto test strip Ql (U) Negative Negative [facility] Urobilinogen Auto test strip (U) [Mass/Vol]Ordered By: Art Bianchi on 05-13-2022 Urobilinogen (U) [Mass/Vol] Normal mg/dL Normal [facility] pH Auto test strip (U)Ordere d By: Art Bianchi on 05-13-2022 pH (U) [pH] 5.0-9.0 [facility] Abhay 10-10-2021 CNPN Telephone (OTOLMN) PILI PARIKH ([id number]) 3 F Date Time Provider Department 10/10/21 ROLANDO WOOTEN OTOLSONYA During your visit today, we recorded the following information about you: Rolando Wooten MD 10/10/2021 12:44 PM Signed Spoke with patient. Monospot positive. Waiting on CBC with diff - wbc 10. She feels ok, just sore throat after incision for MOUNTER SOUSAPHONES yesterday. Ordered further labs as somewhat atypical [...] [B27.80] Order(s):HEPATIC FUNCTION PNL [SQHFP] Order #: [id number] FUTURE HIV 1 2 COMBO(AG/AB),WITH REFLEX TO DIFFERENTIATION [SQHIV12] Order #: [id number] FUTURE CMV IGG/IGM TITER [[id number]] Order #: [id number] FUTURE LISSA-HENSON VCA IGM [SQEBVM] Order #: [id number] FUTURE EBV EA AB IGG [[id number]] Order #: [id number] FUTURE LISSA-HENSON VCA IGG [SQEBVG] Order #: [id number] FUTURE CMV IGG/IGM TITER [[id number]] Order #: [id number] EBV EA AB IGG [[id number]] Order #: [id number] Prescriptions as of 10/27/2021 - HYDROcodone-acetaminophen (HYCET) [...] Status:Closed by ROLANDO WOOTEN on 10/10/21 Normal [facility] AFB Cult and Stainon 021 AFB Cult and Stain Sp. Request/Comment: - Specimen received in sterile container. Smear Result - No acid fast bacilli seen by fluorochrome stain Culture Result - No Acid Fast Bacilli isolated after 46 days Normal [facility] Comment on above: Performed By: #### A FC #### [facility] [place] [address] Anaerobe Cultureon 1 Anaerobe Culture Sp. Request/Comment: - Specimen received in sterile container. Culture Result - Few Mixed anaerobic jori --> ABNORMAL ALERT No Bacteroides fragilis group isolated. No Clostridium perfringens isolated Critically abnormal [facility] Comment on above: Performed By: #### A NACUL #### [facility] [place] [id number] Basic Metabolic Panlon 10-09 Anion gap [Moles/Vol] 14 mmol/L Normal 9-18 [facility] Comment on above: Result Comment: (NOT E) Reference ranges for this patient's age group have not been established. These reference ranges reflect verified or established ranges for the adult population. Interpret these ranges with caution using the clinical context and additional reference resources. Performed By: #### C BCDIF BMP, MONOLX #### [facility] [place], [place] [address] Calcium [Mass/Vol] 9.4 mg/dL Normal 8.4-10.2 [facility] Comment on above: Performed By: #### C BCDIF BMP, MONOLX #### [facility] [address] [place], [place] [address] Chloride [Moles/Vol] 99 mmol/L Normal 97-105 [facility] Comment on above: Result Comment: (NOT E) Reference ranges for this patient's age group have not been established. These reference ranges reflect verified or established ranges for the adult population. Interpret these ranges with caution using the clinical context and additional reference resources. Performed By: #### C BCDIF BMP, MONOLX #### [facility] [place], [place] [address] CO2 [Moles/Vol] 23 mmol/L Normal 22-30 [facility] Comment on above: Result Comment: (NOT E) Reference ranges for this patient's age group have not been established. These reference ranges reflect verified or established ranges for the adult population. Interpret these ranges with caution using the clinical context and additional reference resources. Performed By: #### C BCDIF BMP, MONOLX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 Disposition/Discharge Last Updated: 28-Jun-2018 14:52 by Randell Aguilar (WIL) References:1. Data Referenced From Patient Profile - Pediatric v2 06/23/2018 02:37 AM2. Data Referenced From Admission Risk Screen - Pediatric 06/23/2018 02:40AM Normal [facility] History and Physical - Pedso n 06-23-2018 History and Physical - Peds History of Present Illness:/Lactating: ? Are You no (1)? Are You Currently Breastfeedingno (1) History of Present Illness:Admission Reason: awaiting psych placementHPI:2 days MOUNTER SOUSAPHONES around 6:40 in the evening, Pili felt [...] the police. She remembers the arrival of Clarknd speaking to the medic and the multiple [...] given, Atenolol held.Medically cleared and transferred to [facility]. Upon arrival denies any pain, asidesfrom [...] and are negative Objective: Objective Information: T QUNATiC5Jcsfz17.48232800/78 97%Date/Time06/23 0: 0: 0: 0: 0:50Range(36.7C - [...] and transferred [facility]. [facility]# suicidal ideation - beta adán overdose- psych eval- awating for bed- parents do not want psych meds- 1:1 sitter- f/u with poison control. CV- baseline HR 50-60s- EKG at OSH- sinus bradycardia with sinus arrhythmia- atenolol held- repeat EKG POTS- continue home meds MELISSA Kirkland-1 PediatricsPager [phone] Signatures/Attestation/Cert ification:Attending AttestationI saw and evaluated the [...] patient (as noted in the above attestation) [id number] Provider ? Inpatient Certification StatementI certify this [...] - Pediatric v2 06/23/2018 02:37 AM Normal [facility] Letter - Admission Notificat ion to PCPon 06-23-2018 Letter - Admission Notification to PCP Letter of Admission:Today's Date: 23-Jun-2018. Dear Melida Daniel MD. We would like to inform you that your patient was admitted to [facility] on the following date: 23-Jun-2018. The patient [...] Radha Unger MD. Attending Physician Phone Number: [phone]. Electronic Signatures:Jae Mensah (DIV SECT) (Signed 23-Jun-2018 08:29)Authored: Admission Letter Last Updated: 23-Jun-2018 08:29 by Jae Mensah (DIV SECT) Normal [facility] Measurementson 06-23-2018 Measurements Weight: ? Med Calc Weight (kg)90.5 kilogram(s) Electronic Signatures: Ayaan Burnham ( (Resident)) (Signed 23-Jun-2018 01:57) Authored: Weight Last Updated: 23-Jun-2018 01:57 by Ayaan Burnham ( (Resident)) Normal [facility] Patient Profile - Pediatric v2on 06-23-2018 Protein mass conc Profile:Initial Info :How to be AddressedTrinityParent NameRobert Jl (father)Spoken Language PreferredEnglishLegal CustodianParents (Carlos & )Are you currently using the Personal Electronic Health Record or iVillageCAREnoAre you interested in learning more about [facility] for the management of yourhealthnot at [...] Updated: 23-Jun-2018 02:40 by Lubna Lockett) Normal [facility] Visitor Enrico 06-23-2018 Visitor List Visitor List: Carlos Parikh (father). Cy Parikh (mother). Electronic Signatures: Lubna Lockett) (Signed 23-Jun-2018 04:37) Authored: Visitor List Last Updated: 23-Jun-2018 04:37 by Lubna Lockett) Normal [facility] Office Visit (Pediatric Neur ology)on 06-05-2018 [...] her tear ducts. She had seen an resistance brazer who confirmed this. 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 She will be going to [employer] in the fall. She can still [...] pain; KAYLA = N; Verified Transmission to [place] [address]; Last Updated By: Elevate HR; 09/28/2017 12:12:51 PM Afrin 12 Hour 0.05 % Nasal Solution; USE 1 SPRAY IN EACH NOSTRIL TWICE DAILY;Therapy: 22Dec2017 to (Evaluate:25Dec2017) Requested for: 22Dec2017; LastRx:22Dec2017 Ordered Rx By: Dali Mcintosh; Dispense: 3 Days ; #: Sufficient X 15 ML Bottle; Refill: 0;For: Abdominal pain, Asthma, mild persistent, Epistaxis, Flu-like symptoms, Hematemesis, Vomiting; KAYLA = N; Rx auto-faxed to [place] [address]; Last Updated By: Elevate HR; 12/22/2017 5:43:51 PM AeroChamber Z-Stat Plus/Large Miscellaneous; Please dispense large spacer withmouthpiece. Okay to substitute Optichamber with mouthpiece or Ashley Vortex withmouthpiece;Therapy: 23Sep2014 to (Last Rx:24Mar2015) Requested for: 24Mar2015 Ordered Rx By: Amira Roach; Dispense: 0 Days ; #:1 Miscellaneous; Refill: 1;For: Asthma; KAYLA = N; Verified Transmission to [place] [address]; Last Updated By: Elevate HR; 03/24/2015 10:46:52 AM Albuterol Sulfate (2.5 MG/3ML) 0.083% Inhalation Nebulization Solution; Inhale one vialevery 4-6 hours as needed for cough, wheezing and shortness of breath;Therapy: 23Sep2014 to (Evaluate:20Oct2015) Requested for: 24Mar2015; LastRx:24Mar2015 Ordered Rx By: Amira Roach; Dispense: 30 Days ; #:1 X 3 ML Plas Cont (60 Plas Conts); Refill: 6;For: Asthma; KAYLA = N; Verified Transmission to [facility]; Last Updated By: Elevate HR; 03/24/2015 10:46:51 AM PredniSONE 20 MG Oral Tablet; Take 3 tablets once daily for 5-7 days. To be used in thesetting of a severe asthma flare-up. Please call the office prior to starting;Therapy: 23Sep2014 to (Last Rx:[id number]) Requested for: [id number] Ordered Rx By: Amira Roach; Dispense: 0 Days ; #:21 Tablet; Refill: 1;For: Asthma; KAYLA = N; Sent To: [facility]; Last Updated By: Dali Mcintosh; 04/14/2018 10:03:48 AM ProAir HFA 108 (90 Base) MCG/ACT Inhalation Aerosol Solution; Inhale 2-4 puffs every4-6 hours as needed for cough, wheezing or shortness of breath and prior to exercise;Therapy: 23Sep2014 to (Last Rx:92Wvp0683) Requested for: 71Pqm7994 Ordered Rx By: Amira Roach; Dispense: 0 Days ; #:2 X 8.5 GM Inhaler; Refill: 6;For: Asthma; KAYLA = N; Verified Transmission to [facility]; Last Updated By: Elevate HR; 03/24/2015 10:46:52 AM Qvar 80 MCG/ACT Inhalation Aerosol Solution; INHALE TWO PUFFS BY MOUTH TWICEA DAY WITH A SPACER;Therapy: 23Sep2014 to (Last Rx:40Evv0058) Requested for: 27Rsx9155 Ordered Rx By: Amira Roach; Dispense: 0 Days ; #:8.7 EA; Refill: 5;For: Asthma, mild persistent; KAYLA = N; Verified Transmission to [facility] Lansoprazole 30 MG Oral Capsule Delayed Release; TAKE 1 CAPSULE EVERYMORNING DAILY;Therapy: 78Rqr3593 to (Evaluate:33Nry4234) Requested for: 39Clg0254; LastRx:86Hle6200 Ordered Rx By: Dali Mcintosh; Dispense: 30 Days ; #:30 Capsule Delayed Release; Refill: 3;For: Gastro-esophageal reflux; KAYLA = N; Verified Transmission to [place] [address] Unspecified Medication; Vitamin B2-400 Oral Capsule1 capsule orally once a day;Therapy: (Recorded:56Hsi1518) to Recorded Dispense: 0 Days ; #: Sufficient; Refill: 0;For: Health Maintenance; KAYLA = N; Record; Last Updated By: Mehran Martinez; 08/26/2017 8:43:21 AM Gabapentin 300 MG Oral Capsule; TAKE 1 CAPSULE 3 TIMES DAILY;Therapy: 28Sep2017 to (Evaluate:63Pcb6219) Requested for: 18Feb2018; LastRx:18Feb2018 Ordered Rx By: Mere Simpson; Dispense: 30 Days ; #:90 Capsule; Refill: 5;For: Migraine; KAYLA = N; Verified Transmission to [place] [address]; Last Updated By: Juan Antonio Burgos; 02/18/2018 9:49:39 AM Magnesium Oxide 400 MG Oral Tablet; 1 TABLET ORALLY ONCE A DAY;Therapy: (Recorded:72Spy4631) to Recorded Dispense: 0 Days ; #: Sufficient Tablet; Refill: 0;For: Migraine; KAYLA = N; Record; Last Updated By: Mehran Martinez; 08/26/2017 8:43:21 AM Amitriptyline HCl - 25 MG Oral Tablet; TAKE 1 TABLET AT BEDTIME;Therapy: 31Cuv9645 to (Evaluate:40Ikg4232) Requested for: 41Dof7043; LastRx:[id number] Ordered Rx By: Dali Mcintosh; Dispense: 30 Days ; #:30 Tablet; Refill: 6;For: Migraine, Vomiting; KAYLA = N; Verified Transmission to [place] [address] Vitamin D 1000 UNIT Oral Tablet; TAKE 1 TABLET DAILY;Therapy: 89Sdc3657 to (Evaluate:25Mfu6031) Requested for: 73Wes6774; LastRx:49Tmd8831 Ordered Rx By: Dali Mcintosh; Dispense: 30 Days ; #:30 Tablet; Refill: 3;For: Vitamin D deficiency; KAYLA = N; Verified Transmission to [place] [address] Cyproheptadine HCl - 4 MG Oral Tablet; TAKE 1 TABLET EVERY 8 HOURS DAILY Requested for: 02Sep2017; Last Rx:02Sep2017 Ordered Rx By: Jessica Coello; Dispense: 30 Days ; #:90 Tablet; Refill: 3;For: Vomiting; KAYLA = N; Rx auto-faxed to [place] [address]; Last Updated By: [employer]; 09/02/2017 3:51:52 PM Ondansetron HCl - 8 MG Oral Tablet; TAKE 1 TABLET 3 times daily PRN vomiting;Therapy: 16Dec2017 to (Evaluate:56Mli3630) Requested for: 18Apr2018; LastRx:18Apr2018 Ordered Rx By: Dali Mcintosh; Dispense: 30 Days ; #:90 Tablet; Refill: 3;For: Vomiting; KAYLA = N; Verified Transmission to [place] [address] Phenergan 25 MG SUPP; INSERT 1 SUPPOSITORY RECTALLY EVERY 12 HOURS ASNEEDED FOR NAUSEA AND VOMITING;Therapy: 03Nov2015 to (Last Rx:16Dec2017) Requested for: 16Dec2017 Ordered Rx By: Dali Mcintosh; Dispense: 0 Days ; #:12 Suppository; Refill: 1;For: Vomiting; KAYLA = N; [place] [address]; Last Updated By: Elevate HR; 12/16/2017 1:32:36 PM Promethazine HCl - 25 MG Oral Tablet; 1 tablet orally every 12 hours as needed fornausea/vomiting Requested for: 16Dec2017; Last Rx:16Dec2017 Ordered Rx By: Dali Mcintosh; Dispense: 0 Days ; #:60 Tablet; Refill: 0;For: Vomiting; KAYLA = N; [place] [address]; Last Updated By: Elevate HR; 12/16/2017 1:32:35 PM Atenolol 25 MG Oral [...] 04/14/2018 10:03:53 AM Vitals Vital Signs Recorded: 29Evm5523 10:23TOUhtcrmzv166Latqjdhim 41Wpuitw7 ft 2.40 mbFhtcit097 lb 14.53 ozBMI Tousdmflae50.18BSA Calculated1.94BMI Qyiprzlrtz41 %2-20 Stature Uedcdoldqm97 %2-20 Weight Neuzrhatpt35 % Physical ExamToday's exam finds a cooperative [...] Treat Status:Hold For - Scheduling Requested for: 88Pdv2117 Ordered;For: Snoring; Ordered By: Mere Simpson Performed: [...] Oral Tablet; TAKE 1 TABLET AT BEDTIME;Therapy: 70Yeb5666 to (Evaluate:88Ont4517) Requested for: 18Apr2018; LastRx:18Apr2018 OrderedAtenolol 25 MG Oral Tablet; TAKE 1 TABLET DAILY;Therapy: (Recorded:33Ine2827) to RecordedCyproheptadine HCl - 4 MG Oral Tablet; TAKE 1 TABLET EVERY 8 HOURS DAILY Requested for: 02Sep2017; Last Rx:97Lof2819 OrderedFludrocortisone Acetate 0.1 MG Oral Tablet; take one tablet twice a day;Therapy: (Recorded:60Rqm1937) to RecordedGabapentin 300 MG Oral Capsule; TAKE 1 CAPSULE 3 TIMES DAILY;Therapy: 28Sep2017 to (Evaluate:58Cld5301) Requested for: 18Feb2018; LastRx:18Feb2018 OrderedHyoscyamine Sulfate 0.125 MG Oral Tablet Disintegrating; 2 tablets orally every 8 hours Requested for: 28Sep2017; Last Rx:28Sep2017 OrderedLansoprazole 30 MG Oral Capsule Delayed Release; TAKE 1 CAPSULE EVERYMORNING DAILY;Therapy: 14Apr2018 to (Evaluate:60Myk2572) Requested for: 18Apr2018; LastRx:18Apr2018 OrderedMagnesium Oxide 400 MG Oral Tablet; 1 TABLET ORALLY ONCE A DAY;Therapy: (Recorded:18Kdn6169) to RecordedOndansetron HCl - 8 MG Oral Tablet; TAKE 1 TABLET 3 times daily PRN vomiting;Therapy: 16Dec2017 to (Evaluate:93Dvm7704) Requested for: 18Apr2018; LastRx:18Apr2018 OrderedPhenergan 25 MG SUPP; INSERT 1 SUPPOSITORY RECTALLY EVERY 12 HOURS ASNEEDED FOR NAUSEA AND VOMITING;Therapy: 76Xse5861 to (Last Rx:16Dec2017) Requested for: 16Dec2017 OrderedPredniSONE 20 MG Oral Tablet; Take 3 tablets once daily for 5-7 days. To be used in thesetting of a severe asthma flare-up. Please call the office prior to starting;Therapy: 23Sep2014 to (Last Rx:65Opi6208) Requested for: 14Apr2018 OrderedProAir HFA 108 (90 Base) MCG/ACT Inhalation Aerosol Solution; Inhale 2-4 puffs every4-6 hours as needed for cough, wheezing or shortness of breath and prior to exercise;Therapy: 23Sep2014 to (Last Rx:71Ugm5781) Requested for: 24Mar2015 OrderedPromethazine HCl - 25 MG Oral Tablet; 1 tablet orally every 12 hours as needed fornausea/vomiting Requested for: 16Dec2017; Last Rx:16Dec2017 OrderedQvar 80 MCG/ACT Inhalation Aerosol Solution; INHALE TWO PUFFS BY MOUTH TWICEA DAY WITH A SPACER;Therapy: 23Sep2014 to (Last Rx:76Nrk1793) Requested for: 27Apr2016 OrderedTri-Sprintec 0.18/0.215/0.25 MG-35 MCG Oral Tablet;Therapy: 23Mar2018 to RecordedUnspecified Medication; Vitamin B2-400 Oral Capsule1 capsule orally once a day;Therapy: (Recorded:50Mtn7189) to RecordedVitamin D 1000 UNIT Oral Tablet; TAKE 1 TABLET DAILY;Therapy: 81Qcm3411 to (Evaluate:70Ktt1321) Requested for: 58Exr0630; LastRx:45Suw1413 Ordered Signatures Electronically signed by : KAREEM Dur[facility]; Jun 05 2018 10:46AM EST (Author) Normal [facility] Discharge Summaryon 08-24-20 Discharge Summary Send Summary:Dischar ge Summary Providers:Provider Role Provider Name? Referring Dali Mcintosh? Attending Adeola Colon? Primary Zac Daniel Recipients: Adeola Colon MD Baez-Socorro, Virginia M, MD Bumagina, Natalie, MD - [phone] [[id number]]Dali Mcintosh MD - [id number] [Preferred]Discharge:Summar y:Admission Date: .09-Aug-2017 21:44:00Discharge Date: [id number] Physician at Discharge: Adeola Colon NAdmission Reason: vomiting, hematemesisFinal Discharge Diagnoses: Functional abdominal painProcedures: null Aug 11, 2017Condition at Discharge: SatisfactoryDisposition at Discharge: .HomeVital Signs: T P R BP NjF5Nwoht 36.6 70 18 126/84 98%Date/Time 08/24 8:58 [...] months, but worse recently. She was admitted [facility] last month for the vomiting. She [...] Saturday September 02, 2017 at3:30 pm. Location: [place] [address] [facility]Up Appointment 02: Physician/Dept/Service: Neurology: Caty Simpson Call to Schedule in: 1st available Scheduled Date/Time: 31-Aug-2017 14:00 Location: [address] [place] [address] [facility] Appointment 03: Physician/Dept/Service: ENT (ear, nose, and [...] Updated: 24-Aug-2017 23:59 by Adeola Colon) Normal [facility] PD ABDOMEN, SINGLE VIEWon PD ABDOMEN, [...] body.Electronically signed by: COREY JOHNS, PHYSICIAN Normal [facility] NR MRI BRAIN WOon 08-13-2017 NR MRI BRAIN WO Name: ANGELO PARIKHITY STUDY:NR MRI BRAIN WO; 08/13/2017 10:50 am [...] Chiari malformation. The study was interpreted at [facility].Electronicall y signed by: SABAS GARCIA MD Normal [facility] 08-11-2017 [facility] Surgical Pathology Department Name PILI PARIKH Pathologist: [...] submitted in toto in one cassette.MXWmxw/08/11/2017 Normal [facility] Comment on above: Performed By: #### T 4FRE ####[place] [id number] [place] [address] AMYLASEon 08-10-2017 Amylase enzyme act/vol 19 U/L Normal 18 - 76 [facility] Comment on above: Performed By: #### V TDOH ####[place] [address] [place] [address] C-REACTIVE PROTEINon 017 CRP mass conc 0.34 mg/dL Normal [facility] Comment on above: Result Comment: REF VALUE< 1.00 Performed By: #### V TDOH ####[place] [address] [place] [address] CBC AND DIFFERENTIALon 08-10 % AUTOMATED IMMATURE GRAN 0.3 % Normal 0.0 - 1.0 [facility] Comment on above: Result Comment: Perc ent differential counts (%) should be interpreted in the context of the absolute cell counts (cells/L). Performed By: #### V TDOH ####[facility] [place] [address] % NEUTROPHIL 52.9 % Normal 33.0 - 69.0 [facility] Comment on above: Performed By: #### V TDOH ####[facility] [place] [address] Basophils/100 WBC Auto (Bld) 0.4 % Normal 0.0 - 1.0 [facility] Comment on above: Performed By: #### V TDOH ####[facility] [place] [address] Basophils/100 WBC Auto (Bld) 0.03 x10E9/L Normal 0.00 - 0.10 [facility] Comment on above: Performed By: #### V TDOH ####[facility] [place] [address] Eosinophils Auto #/vol (Bld) 0.29 10*3/uL Normal 0.00 - 0.70 [facility] Comment on above: Performed By: #### V TDOH ####[facility] [place] [address] Eosinophils/100 WBC Auto (Bld) 4.2 % Normal 0.0 - 5.0 [facility] Comment on above: Performed By: #### V TDOH ####[facility] [place] [address] Erythrocyte distribution width Auto Ratio (RBC) 14.1 % Normal 11.5 - 14.5 [facility] Comment on above: Performed By: #### V TDOH ####[facility] [place] [address] Hematocrit Auto Volume Fraction (Bld) 35.4 % Low 36.0 - 46.0 [facility] Comment on above: Performed By: #### V TDOH ####[facility] [place] [address] Hemoglobin mass conc (Bld) 11.0 g/dL Low 12.0 - 16.0 [facility] Comment on above: Performed By: #### V TDOH ####[facility] [place] [address] Lymphocytes Auto #/vol (Bld) 2.33 10*3/uL Normal 1.80 - 4.80 [facility] Comment on above: Performed By: #### V TDOH ####[facility] [place] [address] Lymphocytes/100 WBC Auto (Bld) 33.8 % Normal 28.0 - 48.0 [facility] Comment on above: Performed By: #### V TDOH ####[facility] [place] [address] MCHC Auto mass conc (RBC) 31.1 g/dL Normal 31.0 - 37.0 [facility] Comment on above: Performed By: #### V TDOH ####[facility] [place] [address] MCV Auto Entitic volume (RBC) 80 fL Normal 78 - 102 [facility] Comment on above: Performed By: #### V TDOH ####[facility] [place] [address] Monocytes Auto #/vol (Bld) 0.58 10*3/uL Normal 0.10 - 1.00 [facility] Comment on above: Performed By: #### V TDOH ####[facility] [place] [address] Monocytes/100 WBC Auto (Bld) 8.4 % Normal 3.0 - 9.0 [facility] Comment on above: Performed By: #### V TDOH ####[facility] [place] [address] Neutrophils Auto #/vol (Bld) 3.65 10*3/uL Normal 1.20 - 7.70 [facility] Comment on above: Performed By: #### V TDOH ####[facility] [place] [address] Nucleated RBC/100 WBC Ratio (Bld) 0.0 /100 WBC Normal 0.0-0.0 [facility] Comment on above: Performed By: #### V TDOH ####[facility] [place] [address] Platelets Auto #/vol (Bld) 256 10*3/uL Normal 150 - 400 [facility] Comment on above: Performed By: #### V TDOH ####[facility] [place] [address] RBC Auto #/vol (Bld) 4.40 x10E12/L Normal 4.10 - 5.20 [facility] Comment on above: Performed By: #### V TDOH ####[facility] [place] [address] WBC Auto #/vol (Bld) 6.9 10*3/uL Normal 4.5 - 13.5 [facility] Comment on above: Performed By: #### V TDOH ####[facility] [place] [address] CELIAC DISEASE SEROLOGY PANE Tushar 08-10-2017 GLIADIN ABS, IGA 0 Normal 0 - 14 [facility] Comment on above: Result Comment: Fals e negative Deamidated Gliadin Peptide Antibody, IgA results can occur in patients already adhering to a gluten-free diet or patients with IgA deficiency. Tissue Transglutaminase Antibody, IgA is the preferred test for screening patients with suspected Celiac Disease. Performed By: #### T 4FRE ####[facility] [place] [address] GLIADIN ABS, IGG <1 Normal 0 - 14 [facility] Comment on above: Result Comment: Fals e negative Deamidated Gliadin Peptide Antibody, IgG results can occur in patients already adhering to a gluten-free diet. Tissue Transglutaminase Antibody, IgA is the preferred test for screening patients with suspected Celiac Disease. Performed By: #### T 4FRE ####[facility] [place] [address] TTG AB,IGA <1 Normal 0 - 14 [facility] Comment on above: Result Comment: Loni ac disease is unlikely. False negative Tissue Transglutaminase Antibody, IgA results can occur in approximately 10% of patients with celiac disease, patients already adhering to a gluten-free diet, or patients with IgA deficiency. Performed By: #### T 4FRE ####[facility] [place] [address] TTG AB,IGG <1 Normal 0 - 14 [facility] Comment on above: Result Comment: Fals e negative Tissue Transglutaminase Antibody, IgG results can occur in patients already adhering to a gluten-free diet. Tissue Transglutaminase Antibody, IgA is the preferred test for screening patients with suspected Celiac Disease. Performed By: #### T 4FRE ####[facility] [place] [address] COAGULATION SCREENon 017 aPTT Coag time (Bld) 28 s Normal 25 - 36 [facility] Comment on above: Result Comment: THE APTT IS NO LONGER USED FOR MONITORING UNFRACTIONATED HEPARIN THERAPY. FOR MONITORING HEPARIN THERAPY, USE THE HEPARIN ASSAY. Performed By: #### V TDOH ####[facility] [place] [address] INR Coag RelTime (PPP) 1.1 {INR} Normal 0.9 - 1.1 [facility] Comment on above: Performed By: #### V TDOH ####[facility] [place] [address] Prothrombin time (PT) Coag time (PPP) 12.1 s Normal 9.8 - 12.7 [facility] Comment on above: Performed By: #### V TDOH ####[facility] [place] [address] HEPATIC FUNCTION PANELon ALP enzyme act/vol 128 U/L Normal 52 - 239 [facility] Comment on above: Performed By: #### V TDOH ####[facility] [place] [address] ALT enzyme act/vol 39 U/L High 3 - 28 [facility] Comment on above: Result Comment: Christen ents treated with Sulfasalazine may generate falsely decreased results for ALT. Performed By: #### V TDOH ####[facility] [place] [address] AST enzyme act/vol 27 U/L High 9 - 24 [facility] Comment on above: Performed By: #### V TDOH ####[facility] [place] [address] Bilirubin mass conc 0.4 mg/dL Normal 0.0 - 0.9 [facility] Comment on above: Performed By: #### V TDOH ####[facility] [place] [address] Bilirubin.direct mass conc 0.1 mg/dL Normal 0.0 - 0.3 [facility] Comment on above: Performed By: #### V TDOH ####[facility] [place] [address] Protein mass conc 5.7 g/dL Low 6.2 - 7.7 [facility] Comment on above: Performed By: #### V TDOH ####[facility] [place] [address] LIPASEon 08-10-2017 Lipase enzyme act/vol 16 U/L Normal 9 - 82 [facility] Comment on above: Result Comment: Shanda puncture immediately after or during the administration of Metamizole may lead to falsely low results. Testing should be performed immediately prior to Metamizole dosing. Performed By: #### V TDOH ####[facility] [place] [address] RENAL FUNCTION PANELon 08-10 Albumin mass conc 3.8 g/dL Normal 3.4 - 5.0 [facility] Comment on above: Performed By: #### T 4FRE ####[facility] [place] [address] Performed By: #### V TDOH ####[facility] [place] [address] Anion gap 3 molar conc 13 mmol/L Normal 10 - 30 [facility] Comment on above: Performed By: #### T 4FRE ####[facility] [place] [address] Calcium mass conc 9.2 mg/dL Normal 8.5 - 10.7 [facility] Comment on above: Performed By: #### T 4FRE ####[facility] [place] [address] Chloride molar conc 106 mmol/L Normal 98 - 107 [facility] Comment on above: Performed By: #### T 4FRE ####[facility] [place] [address] Creatinine mass conc 0.56 mg/dL Normal 0.50 - 1.00 [facility] Comment on above: Performed By: #### T 4FRE ####[facility] [place] [address] Glucose mass conc 106 mg/dL High 74 - 99 [facility] Comment on above: Performed By: #### T 4FRE ####[facility] [place] [address] HCO3 molar conc (Bld) 26 mmol/L Normal 18 - 27 [facility] Comment on above: Performed By: #### T 4FRE ####[facility] [place] [address] Phosphate mass conc 4.3 mg/dL Normal 3.0 - 5.4 [facility] Comment on above: Result Comment: The performance characteristics of phosphorus testing in heparinized plasma have been validated by the individual laboratory site where testing is performed. Testing on heparinized plasma is not approved by the FDA; however, such approval is not necessary. Performed By: #### T 4FRE ####[facility] [place] [address] Potassium molar conc 3.9 mmol/L Normal 3.5 - 5.3 [facility] Comment on above: Performed By: #### T 4FRE ####[facility] [place] [address] Sodium molar conc 141 mmol/L Normal 136 - 145 [facility] Comment on above: Performed By: #### T 4FRE ####[facility] [place] [address] Urea nitrogen mass conc 11 mg/dL Normal 6 - 23 [facility] Comment on above: Performed By: #### T 4FRE ####[facility] [place] [address] AMYLASEon 08-09-2017 Amylase enzyme act/vol 22 U/L Normal 18 - 76 [facility] Comment on above: Performed By: #### A MY ####[facility] [place] [address] C-REACTIVE PROTEINon 017 CRP mass conc 0.36 mg/dL Normal [facility] Comment on above: Result Comment: REF VALUE< 1.00 Performed By: #### C RP ####[facility] [place] [address] CBC AND DIFFERENTIALon 08-09 % AUTOMATED IMMATURE GRAN 0.3 % Normal 0.0 - 1.0 [facility] Comment on above: Result Comment: Perc ent differential counts (%) should be interpreted in the context of the absolute cell counts (cells/L). Performed By: #### C BCDF ####[id number] [place] [address] % NEUTROPHIL 60.6 % Normal 33.0 - 69.0 [facility] Comment on above: Performed By: #### C BCDF ####[id number] [place] [address] Basophils/100 WBC Auto (Bld) 0.04 x10E9/L Normal 0.00 - 0.10 [facility] Comment on above: Performed By: #### C BCDF ####[id number] [place] [address] Basophils/100 WBC Auto (Bld) 0.5 % Normal 0.0 - 1.0 [facility] Comment on above: Performed By: #### C BCDF ####[id number] [place] [address] Eosinophils Auto #/vol (Bld) 0.28 10*3/uL Normal 0.00 - 0.70 [facility] Comment on above: Performed By: #### C BCDF ####[id number] [place] [address] Eosinophils/100 WBC Auto (Bld) 3.6 % Normal 0.0 - 5.0 [facility] Comment on above: Performed By: #### C BCDF ####[id number] [place] [address] Erythrocyte distribution width Auto Ratio (RBC) 14.4 % Normal 11.5 - 14.5 [facility] Comment on above: Performed By: #### C BCDF ####[id number] [place] [address] Hematocrit Auto Volume Fraction (Bld) 37.7 % Normal 36.0 - 46.0 [facility] Comment on above: Performed By: #### C BCDF ####[id number] [place] [address] Hemoglobin mass conc (Bld) 11.5 g/dL Low 12.0 - 16.0 [facility] Comment on above: Performed By: #### C BCDF ####[id number] [place] [address] Lymphocytes Auto #/vol (Bld) 2.20 10*3/uL Normal 1.80 - 4.80 [facility] Comment on above: Performed By: #### C BCDF ####[id number] [place] [address] Lymphocytes/100 WBC Auto (Bld) 28.2 % Normal 28.0 - 48.0 [facility] Comment on above: Performed By: #### C BCDF ####[id number] [place] [address] MCHC Auto mass conc (RBC) 30.5 g/dL Low 31.0 - 37.0 [facility] Comment on above: Performed By: #### C BCDF ####[id number] [place] [address] MCV Auto Entitic volume (RBC) 82 fL Normal 78 - 102 [facility] Comment on above: Performed By: #### C BCDF ####[id number] [place] [address] Monocytes Auto #/vol (Bld) 0.53 10*3/uL Normal 0.10 - 1.00 [facility] Comment on above: Performed By: #### C BCDF ####[id number] [place] [address] Monocytes/100 WBC Auto (Bld) 6.8 % Normal 3.0 - 9.0 [facility] Comment on above: Performed By: #### C BCDF ####[id number] [place] [address] Neutrophils Auto #/vol (Bld) 4.73 10*3/uL Normal 1.20 - 7.70 [facility] Comment on above: Performed By: #### C BCDF ####[id number] [place] [address] Nucleated RBC/100 WBC Ratio (Bld) 0.0 /100 WBC Normal 0.0-0.0 [facility] Comment on above: Performed By: #### C BCDF ####[id number] [place] [address] Platelets Auto #/vol (Bld) 290 10*3/uL Normal 150 - 400 [facility] Comment on above: Performed By: #### C BCDF ####[id number] [place] [address] RBC Auto #/vol (Bld) 4.62 x10E12/L Normal 4.10 - 5.20 [facility] Comment on above: Performed By: #### C BCDF ####[id number] [place] [address] WBC Auto #/vol (Bld) 7.8 10*3/uL Normal 4.5 - 13.5 [facility] Comment on above: Performed By: #### C BCDF ####[id number] [place] [address] COAGULATION SCREENon 017 aPTT Coag time (Bld) 29 s Normal 25 - 36 [facility] Comment on above: Result Comment: THE APTT IS NO LONGER USED FOR MONITORING UNFRACTIONATED HEPARIN THERAPY. FOR MONITORING HEPARIN THERAPY, USE THE HEPARIN ASSAY. Performed By: #### V TDOH ####[id number] [place] [address] INR Coag RelTime (PPP) 1.2 {INR} High 0.9 - 1.1 [facility] Comment on above: Performed By: #### V TDOH ####[id number] [place] [address] Prothrombin time (PT) Coag time (PPP) 12.9 s High 9.8 - 12.7 [facility] Comment on above: Performed By: #### V TDOH ####[id number] [place] [address] ESR-WESTERGRENon 08-09-2017 ESR-WESTERGREN 8 mm/h Normal 0 - 13 [facility] Comment on above: Performed By: #### V TDOH ####[id number] [place] [address] GGTon 08-09-2017 GGT 20 U/L Normal 5 - 20 [facility] Comment on above: Performed By: #### G GT ####[facility] [place] [address] HEMOGLOBIN A1Con 08-09-2017 Hemoglobin A1c/Hemoglobin.total mass fraction (Bld) 5.6 % Normal [facility] Comment on above: Result Comment: Diag nosis of Diabetes-Adults Non-Diabetic: < or = 5.6% Increased risk for developing diabetes: 5.7-6.4% Diagnostic of diabetes: > or = 6.5%. Monitoring of Diabetes Age (y) Therapeutic Goal (%) Adults: >18 <7.0 Pediatrics: 13-18 <7.5 7-12 <8.0 0- 6 7.5-8.5 [place] [employer]. Diabetes Care 33(S1), Nov 2009. Performed By: #### V TDOH ####[facility] [place] [address] HEPATIC FUNCTION PANELon ALP enzyme act/vol 133 U/L Normal 52 - 239 [facility] Comment on above: Performed By: #### H EPFP ####[id number] [place] [address] ALT enzyme act/vol 41 U/L High 3 - 28 [facility] Comment on above: Result Comment: Christen ents treated with Sulfasalazine may generate falsely decreased results for ALT. Performed By: #### H EPFP ####[id number] [place] [address] AST enzyme act/vol 25 U/L High 9 - 24 [facility] Comment on above: Performed By: #### H EPFP ####[id number] [place] [address] Bilirubin mass conc 0.3 mg/dL Normal 0.0 - 0.9 [facility] Comment on above: Performed By: #### H EPFP ####[id number] [place] [address] Bilirubin.direct mass conc 0.1 mg/dL Normal 0.0 - 0.3 [facility] Comment on above: Performed By: #### H EPFP ####[id number] [place] [address] Protein mass conc 6.7 g/dL Normal 6.2 - 7.7 [facility] Comment on above: Performed By: #### H EPFP ####[id number] [place] [address] IRON + TIBCon 08-09-2017 % SATURATION 13 % Low 25 - 45 [facility] Comment on above: Performed By: #### I RONT ####[id number] [place] [address] Iron mass conc 53 ug/dL Normal 23 - 138 [facility] Comment on above: Performed By: #### I RONT ####[id number] [place] [address] TIBC 407 ug/dL Normal 240 - 445 [facility] Comment on above: Performed By: #### I RONT ####[facility] [place] [address] LIPASEon 08-09-2017 Lipase enzyme act/vol 17 U/L Normal 9 - 82 [facility] Comment on above: Result Comment: Shanda puncture immediately after or during the administration of Metamizole may lead to falsely low results. Testing should be performed immediately prior to Metamizole dosing. Performed By: #### L IPAS ####[facility] [place] [address] RENAL FUNCTION PANELon 08-09 Albumin mass conc 4.3 g/dL Normal 3.4 - 5.0 [facility] Comment on above: Performed By: #### V TDOH ####[id number] [place] [address] Performed By: #### H EPFP ####[id number] [place] [address] Anion gap 3 molar conc 13 mmol/L Normal 10 - 30 [facility] Comment on above: Performed By: #### V TDOH ####[id number] [place] [address] Calcium mass conc 9.5 mg/dL Normal 8.5 - 10.7 [facility] Comment on above: Performed By: #### V TDOH ####[id number] [place] [address] Chloride molar conc 105 mmol/L Normal 98 - 107 [facility] Comment on above: Performed By: #### V TDOH ####[id number] [place] [address] Creatinine mass conc 0.50 mg/dL Normal 0.50 - 1.00 [facility] Comment on above: Performed By: #### V TDOH ####[id number] [place] [address] Glucose mass conc 83 mg/dL Normal 74 - 99 [facility] Comment on above: Performed By: #### V TDOH ####[id number] [place] [address] HCO3 molar conc (Bld) 27 mmol/L Normal 18 - 27 [facility] Comment on above: Performed By: #### V TDOH ####[facility] [place] [address] Phosphate mass conc 4.1 mg/dL Normal 3.0 - 5.4 [facility] Comment on above: Result Comment: The performance characteristics of phosphorus testing in heparinized plasma have been validated by the individual laboratory site where testing is performed. Testing on heparinized plasma is not approved by the FDA; however, such approval is not necessary. Performed By: #### V TDOH ####[facility] [place] [address] Potassium molar conc 4.1 mmol/L Normal 3.5 - 5.3 [facility] Comment on above: Performed By: #### V TDOH ####[id number] [place] [address] Sodium molar conc 141 mmol/L Normal 136 - 145 [facility] Comment on above: Performed By: #### V TDOH ####[id number] [place] [address] Urea nitrogen mass conc 11 mg/dL Normal 6 - 23 [facility] Comment on above: Performed By: #### V TDOH ####[id number] [place] [address] THYROXINE,FREEon 08-09-2017 THYROXINE,FREE 1.08 ng/dL Normal 0.78 - 1.48 [facility] Comment on above: Result Comment: Thyr oxine Free testing is performed using different testing methodology at [facility] than at [facility]. Direct result comparisons should only be made within the same method.. Patients receiving more than 5 mg/day of biotin may have interference in test results. A sample should be taken no sooner than eight hours after previous dose. Contact [phone] for additional information. Performed By: #### T 4FRE ####[facility] [place] [address] TSHon 08-09-2017 Thyrotropin Qn 1.71 m[IU]/L Normal 0.44 - 3.98 [facility] Comment on above: Result Comment: TSH testing is performed using different testing methodology at [facility] than at other [facility]. Direct result comparisons should only be made within the same method.. Patients receiving more than 5 mg/day of biotin may have interference in test results. A sample should be taken no sooner than eight hours after previous dose. Contact [phone] for additional information. Performed By: #### T SH2 ####[facility] [place] [address] VITAMIN D, 25-HYDROXYon 07-29 VITAMIN D, 25-HYDROXY 28 ng/mL Abnormal [facility] Comment on above: Result Comment: .DEF ICIENCY: < 20 NG/MLINSUFFICIENCY: 20-29 NG/MLOPTIMUM LEVEL: 30-80 NG/MLPOSSIBLE TOXICITY: > 80 NG/MLTHIS ASSAY ACCURATELY QUANTIFIES THE SUM OFVITAMIN D3, 25-HYDROXY AND VIT D2,25-HYDROXY. Performed By: #### V TDOH ####[facility] [place] [address] Vital Signs Date Time Vital Sign Value Performing Clinician Facility 01-16-2025 20:30-0500 Heart rate 51 /min [facility] 01-16-2025 20:30-0500 Respiratory rate 12 /min [facility] 01-16-2025 20:30-0500 SaO2% (BldA) [Mass fraction] 98 % [facility] 01-16-2025 19:30-0500 Diastolic blood pressure 105 mm[Hg] [facility] 01-16-2025 19:30-0500 Heart rate 48 /min [facility] 01-16-2025 19:30-0500 Mean blood pressure 115 mm[Hg] [facility] 01-16-2025 19:30-0500 Respiratory rate 13 /min [facility] 01-16-2025 19:30-0500 SaO2% (BldA) [Mass fraction] 98 % [facility] 01-16-2025 19:30-0500 Systolic blood pressure 135 mm[Hg] [facility] 01-16-2025 17:53-0500 Body temperature 99.14 [degF] [facility] 01-16-2025 17:53-0500 Diastolic blood pressure 71 mm[Hg] [facility] 01-16-2025 17:53-0500 Heart rate 64 /min [facility] 01-16-2025 17:53-0500 Respiratory rate 20 /min [facility] 01-16-2025 17:53-0500 SaO2% (BldA) [Mass fraction] 100 % [facility] 01-16-2025 17:53-0500 Systolic blood pressure 129 mm[Hg] [facility] 10-29-2024 00:01-0500 Diastolic blood pressure 94 mm[Hg] [facility] Work Phone: [facility] 10-29-2024 00:01-0500 Heart rate 72 /min [facility] Work Phone: [facility] 10-29-2024 00:01-0500 Respiratory rate 16 /min [facility] Work Phone: [facility] 10-29-2024 00:01-0500 SaO2% (BldA) [Mass fraction] 99 % [facility] Work Phone: [facility] 10-29-2024 00:01-0500 Systolic blood pressure 156 mm[Hg] [facility] Work Phone: [facility] 10-28-2024 18:07-0500 Body height 157.48 cm [facility] Work Phone: [facility] 10-28-2024 18:07-0500 Body temperature 98.6 [degF] [facility] Work Phone: [facility] 10-28-2024 18:07-0500 Body weight 92.85 kg [facility] Work Phone: [facility] 08-03-2024 23:10-0400 Diastolic blood pressure 68 mm[Hg] [facility] Work Phone: [facility] 08-03-2024 23:10-0400 Heart rate 95 /min [facility] Work Phone: [facility] 08-03-2024 23:10-0400 Respiratory rate 18 /min [facility] Work Phone: [facility] 08-03-2024 23:10-0400 SaO2% (BldA) [Mass fraction] 99 % [facility] Work Phone: [facility] 08-03-2024 23:10-0400 Systolic blood pressure 115 mm[Hg] Services [facility] Work Phone: [facility] 08-03-2024 20:35-0400 Body height 157.48 cm Services [facility] Work Phone: [facility] 08-03-2024 20:35-0400 Body temperature 99.1 [degF] [facility] Work Phone: [facility] 08-03-2024 20:35-0400 Body weight 90.71 kg Services [facility] Work Phone: [facility] 07-30-2024 22:55-0400 Diastolic blood pressure 72 mm[Hg] Cresencio Colten [facility] 07-30-2024 22:55-0400 Heart rate 50 /min Cresencio Colten [facility] 07-30-2024 22:55-0400 Mean blood pressure 83 mm[Hg] Cresencio Colten [facility] 07-30-2024 22:55-0400 Respiratory rate 16 /min Cresencio Colten [facility] 07-30-2024 22:55-0400 SaO2% (BldA) [Mass fraction] 98 % Cresencio Colten [facility] 07-30-2024 22:55-0400 Systolic blood pressure 104 mm[Hg] Cresencio Colten [facility] 07-30-2024 19:28-0400 Body temperature 98.06 [degF] Cresencio Abel [facility] 07-30-2024 19:28-0400 Diastolic blood pressure 76 mm[Hg] Cresencio Abel [facility] 07-30-2024 19:28-0400 Heart rate 55 /min Cresencio Abel [facility] 07-30-2024 19:28-0400 Respiratory rate 16 /min Cresencio Abel [facility] 07-30-2024 19:28-0400 SaO2% (BldA) [Mass fraction] 97 % Cresencio Abel [facility] 07-30-2024 19:28-0400 Systolic blood pressure 118 mm[Hg] Cresencio Abel [facility] 03-19-2024 00:10-0400 Diastolic blood pressure 90 mm[Hg] Services [facility] Work Phone: [facility] 03-19-2024 00:10-0400 Heart rate 110 /min [facility] Work Phone: [facility] 03-19-2024 00:10-0400 Respiratory rate 18 /min [facility] Work Phone: [facility] 03-19-2024 00:10-0400 SaO2% (BldA) [Mass fraction] 100 % [facility] Work Phone: [facility] 03-19-2024 00:10-0400 Systolic blood pressure 144 mm[Hg] Services [email or web address] Work Phone: [facility] 03-18-2024 22:03-0400 Body height 160.02 cm Services [employer] Work Phone: [facility] 03-18-2024 22:03-0400 Body temperature 98.3 [degF] [email or web address] Work Phone: [facility] 03-18-2024 22:03-0400 Body weight 92.2 kg Services [employer] Work Phone: [facility] 03-15-2024 13:43-0400 Diastolic blood pressure 89 mm[Hg] [facility] 03-15-2024 13:43-0400 Heart rate 51 /min [facility] 03-15-2024 13:43-0400 Mean blood pressure 107 mm[Hg] [facility] 03-15-2024 13:43-0400 Respiratory rate 16 /min [facility] 03-15-2024 13:43-0400 SaO2% (BldA) [Mass fraction] 100 % [facility] 03-15-2024 13:43-0400 Systolic blood pressure 144 mm[Hg] [facility] 03-15-2024 12:01-0400 Diastolic blood pressure 87 mm[Hg] [facility] 03-15-2024 12:01-0400 Heart rate 52 /min [facility] 03-15-2024 12:01-0400 Mean blood pressure 107 mm[Hg] [facility] 03-15-2024 12:01-0400 SaO2% (BldA) [Mass fraction] 100 % [facility] 03-15-2024 12:01-0400 Systolic blood pressure 148 mm[Hg] [facility] 03-15-2024 10:35-0400 Body temperature 97.52 [degF] [facility] 03-15-2024 10:35-0400 Diastolic blood pressure 86 mm[Hg] [facility] 03-15-2024 10:35-0400 Heart rate 60 /min [facility] 03-15-2024 10:35-0400 Respiratory rate 18 /min [facility] 03-15-2024 10:35-0400 SaO2% (BldA) [Mass fraction] 98 % [facility] 03-15-2024 10:35-0400 Systolic blood pressure 143 mm[Hg] [facility] 03-13-2024 22:00-0400 Diastolic blood pressure 105 mm[Hg] Femi Jessie [facility] 03-13-2024 22:00-0400 Heart rate 53 /min Femi Jessie [facility] 03-13-2024 22:00-0400 Mean blood pressure 117 mm[Hg] Femi Jessie [facility] 03-13-2024 22:00-0400 SaO2% (BldA) [Mass fraction] 100 % Femi Jessie [facility] 03-13-2024 22:00-0400 Systolic blood pressure 140 mm[Hg] Femi Jessie [facility] 03-13-2024 21:00-0400 Diastolic blood pressure 106 mm[Hg] Femi Jessie [facility] 03-13-2024 21:00-0400 Heart rate 93 /min Femi Jessie [facility] 03-13-2024 21:00-0400 Mean blood pressure 119 mm[Hg] Femi Jessie [facility] 03-13-2024 21:00-0400 Respiratory rate 21 /min Femi Jessie [facility] 03-13-2024 21:00-0400 SaO2% (BldA) [Mass fraction] 98 % Femi Jessie [facility] 03-13-2024 21:00-0400 Systolic blood pressure 144 mm[Hg] Femi Jessie [facility] 03-13-2024 20:00-0400 Diastolic blood pressure 103 mm[Hg] Femi Ernandeze [facility] 03-13-2024 20:00-0400 Heart rate 50 /min Femi Ernandeze [facility] 03-13-2024 20:00-0400 Mean blood pressure 120 mm[Hg] Femi Ernandeze [facility] 03-13-2024 20:00-0400 Systolic blood pressure 153 mm[Hg] Femi Ernandeze [facility] 03-13-2024 19:38-0400 Respiratory rate 14 /min Femi Ernandeze [facility] 03-13-2024 18:36-0400 Respiratory rate 18 /min Femi Ernandeze [facility] 03-13-2024 17:51-0400 Body temperature 98.24 [degF] Femi Ernandeze [facility] 03-13-2024 17:36-0400 Body temperature 98.24 [degF] Femi Ernandeze [facility] 03-13-2024 17:36-0400 Heart rate 61 /min Femi Ernandeze [facility] 03-13-2024 17:36-0400 Respiratory rate 18 /min Femi Ernandeze [facility] 07-31-2023 18:09-0400 Body height 157.48 cm [facility] Work Phone: [facility] 07-31-2023 18:09-0400 Body temperature 98.6 [degF] [facility] Work Phone: [facility] 07-31-2023 18:09-0400 Body weight 84 kg [facility] Work Phone: [facility] 07-31-2023 18:09-0400 Diastolic blood pressure 106 mm[Hg] [facility] Work Phone: [facility] 07-31-2023 18:09-0400 Heart rate 87 /min [facility] Work Phone: [facility] 07-31-2023 18:09-0400 Respiratory rate 18 /min [facility] Work Phone: [facility] 07-31-2023 18:09-0400 SaO2% (BldA) [Mass fraction] 98 % [facility] Work Phone: [facility] 07-31-2023 18:09-0400 Systolic blood pressure 150 mm[Hg] [facility] Work Phone: [facility] 05-25-2023 13:11-0400 Diastolic blood pressure 96 mm[Hg] [facility] Work Phone: [facility] 05-25-2023 13:11-0400 Heart rate 60 /min [facility] Work Phone: [facility] 05-25-2023 13:11-0400 Respiratory rate 16 /min [facility] Work Phone: [facility] 05-25-2023 13:11-0400 SaO2% (BldA) [Mass fraction] 97 % [facility] Work Phone: [facility] 05-25-2023 13:11-0400 Systolic blood pressure 160 mm[Hg] [facility] Work Phone: [facility] 05-25-2023 11:56-0400 Inhaled oxygen flow rate 6 L/min [facility] Work Phone: [facility] 05-25-2023 11:54-0400 Body temperature 97.2 [degF] Services [facility] Health Work Phone: [facility] 05-25-2023 09:39-0400 Body height 160.02 cm Services [facility] Work Phone: [facility] 05-25-2023 09:39-0400 Body mass index (BMI) [Percentile] Per age and sex 96.6 % Services [employer] Work Phone: [facility] 05-25-2023 09:39-0400 Body mass index (BMI) [Ratio] 33.6 kg/m2 Services [employer] Work Phone: [facility] 05-25-2023 09:39-0400 Body weight 86.18 kg Services [employer] Work Phone: [facility] 05-23-2023 08:00-0400 Body height 157.48 cm Colten [employer] Other [employer] Other 05-23-2023 08:00-0400 Body mass index (BMI) [Ratio] 34.75 kg/m2 [facility] [employer] Other [employer] Other 05-23-2023 08:00-0400 Body weight 86.18 kg Colten Olexa Other [employer] Other 01-07-2023 14:08-0500 Body height 157.48 cm Services [employer] Work Phone: [facility] 01-07-2023 12:34-0500 Body temperature 98.1 [degF] Services [facility] [employer] Work Phone: [facility] 01-07-2023 12:34-0500 Diastolic blood pressure 86 mm[Hg] Services [facility] [employer] Work Phone: [facility] 01-07-2023 12:34-0500 Heart rate 75 /min Services [facility] [employer] Work Phone: [facility] 01-07-2023 12:34-0500 SaO2% (BldA) [Mass fraction] 100 % Services [facility] [employer] Work Phone: [facility] 01-07-2023 12:34-0500 Systolic blood pressure 147 mm[Hg] Services [facility] Work Phone: [facility] 01-07-2023 11:57-0500 Respiratory rate 18 /min Services [facility] Work Phone: [facility] 01-07-2023 06:00-0500 Body weight 78.2 kg Services [facility] Work Phone: [facility] 01-06-2023 18:29-0500 Diastolic blood pressure 82 mm[Hg] Services [facility] Work Phone: [facility] 01-06-2023 18:29-0500 Heart rate 64 /min Services [facility] Work Phone: [facility] 01-06-2023 18:29-0500 Respiratory rate 16 /min Services [facility] Work Phone: [facility] 01-06-2023 18:29-0500 SaO2% (BldA) [Mass fraction] 98 % Services [facility] Work Phone: [facility] 01-06-2023 18:29-0500 Systolic blood pressure 139 mm[Hg] Services [facility] Work Phone: [facility] 01-06-2023 11:12-0500 Body height 157.48 cm Services [facility] Work Phone: [facility] 01-06-2023 11:12-0500 Body temperature 98 [degF] Services [facility] Work Phone: [facility] 01-06-2023 11:12-0500 Body weight 77.11 kg Services [facility] Work Phone: [facility] 01-02-2023 04:00-0500 Heart rate 62 /min Services [facility] Work Phone: [facility] 01-02-2023 04:00-0500 Respiratory rate 18 /min Services [facility] Work Phone: [facility] 01-02-2023 04:00-0500 SaO2% (BldA) [Mass fraction] 100 % Services [facility] Work Phone: [facility] 01-02-2023 02:37-0500 Diastolic blood pressure 85 mm[Hg] Services [facility] Work Phone: [facility] 01-02-2023 02:37-0500 Systolic blood pressure 155 mm[Hg] Services [facility] Work Phone: [facility] 01-02-2023 01:14-0500 Body height 157.48 cm Services [facility] Work Phone: [facility] 01-02-2023 01:14-0500 Body temperature 98 [degF] Services [facility] Work Phone: [facility] 01-02-2023 01:14-0500 Body weight 77.11 kg Services [facility] Work Phone: [facility] 12-31-2022 12:11-0500 Heart rate 70 /min Services [facility] Work Phone: [facility] 12-31-2022 12:08-0500 Body height 157.48 cm Services [facility] Work Phone: [facility] 12-31-2022 12:08-0500 Body temperature 97.7 [degF] Services [facility] Work Phone: [facility] 12-31-2022 12:08-0500 Body weight 79 kg Services [facility] Work Phone: [facility] 12-31-2022 12:08-0500 Diastolic blood pressure 87 mm[Hg] Services [facility] Work Phone: [facility] 12-31-2022 12:08-0500 Respiratory rate 18 /min Services [facility] Work Phone: [facility] 12-31-2022 12:08-0500 SaO2% (BldA) [Mass fraction] 99 % Services [facility] Work Phone: [facility] 12-31-2022 12:08-0500 Systolic blood pressure 134 mm[Hg] Services [facility] Work Phone: [facility] 11-09-2022 15:15-0500 Body height 157.48 cm Services [facility] Work Phone: [facility] 11-09-2022 15:15-0500 Body temperature 98.4 [degF] Services [facility] Work Phone: [facility] 11-09-2022 15:15-0500 Body weight 81.64 kg Services [facility] Work Phone: [facility] 11-09-2022 15:15-0500 Diastolic blood pressure 90 mm[Hg] Services [facility] Work Phone: [facility] 11-09-2022 15:15-0500 Heart rate 95 /min Services [facility] Work Phone: [facility] 11-09-2022 15:15-0500 Respiratory rate 16 /min Services [facility] Work Phone: [facility] 11-09-2022 15:15-0500 SaO2% (BldA) [Mass fraction] 100 % Services [facility] Work Phone: [facility] 11-09-2022 15:15-0500 Systolic blood pressure 140 mm[Hg] Services [facility] Work Phone: [facility] 11-07-2022 13:40-0500 Diastolic blood pressure 85 mm[Hg] Services [facility] Work Phone: [facility] 11-07-2022 13:40-0500 Heart rate 68 /min Services [facility] Work Phone: [facility] 11-07-2022 13:40-0500 Respiratory rate 16 /min Services [facility] Work Phone: [facility] 11-07-2022 13:40-0500 SaO2% (BldA) [Mass fraction] 100 % Services [facility] Work Phone: [facility] 11-07-2022 13:40-0500 Systolic blood pressure 119 mm[Hg] [facility] Work Phone: [facility] 11-07-2022 11:05-0500 Body temperature 98.2 [degF] [facility] Work Phone: [facility] 11-07-2022 11:04-0500 Body height 158.75 cm [facility] Work Phone: [facility] 11-07-2022 11:04-0500 Body weight 77 kg Services [facility] Work Phone: [facility] 11-02-2022 09:53-0500 Diastolic blood pressure 89 mm[Hg] Services [facility] Work Phone: [facility] 11-02-2022 09:53-0500 Heart rate 50 /min Services [facility] Work Phone: [facility] 11-02-2022 09:53-0500 Respiratory rate 18 /min Services [facility] Work Phone: [facility] 11-02-2022 09:53-0500 SaO2% (BldA) [Mass fraction] 98 % Services [facility] [employer] Senior Work Phone: [facility] 11-02-2022 09:53-0500 Systolic blood pressure 156 mm[Hg] Services [facility] Work Phone: [facility] 11-02-2022 03:00-0500 Body height 157.48 cm Services [facility] Work Phone: [facility] 11-02-2022 03:00-0500 Body temperature 98.4 [degF] Services [facility] [employer] Senior Work Phone: [facility] 11-02-2022 03:00-0500 Body weight 78 kg Services [facility] [employer] Senior Work Phone: [facility] 10-31-2022 10:05-0500 Diastolic blood pressure 85 mm[Hg] [facility] Work Phone: [facility] 10-31-2022 10:05-0500 Heart rate 59 /min [facility] Work Phone: [facility] 10-31-2022 10:05-0500 Respiratory rate 18 /min Services [facility] Work Phone: [facility] 10-31-2022 10:05-0500 SaO2% (BldA) [Mass fraction] 98 % Services [facility] Work Phone: [facility] 10-31-2022 10:05-0500 Systolic blood pressure 137 mm[Hg] Services [facility] Work Phone: [facility] 10-31-2022 08:50-0500 Body height 157.48 cm Services [facility] Work Phone: [facility] 10-31-2022 08:50-0500 Body temperature 98.2 [degF] Services [facility] Work Phone: [facility] 10-31-2022 08:50-0500 Body weight 83.91 kg Services [facility] Work Phone: [facility] 10-29-2022 12:01-0500 Body height 157.48 cm Services [facility] Work Phone: [facility] 10-29-2022 12:01-0500 Body temperature 97.8 [degF] Services [facility] Work Phone: [facility] 10-29-2022 12:01-0500 Body weight 81 kg Services [facility] Work Phone: [facility] 10-29-2022 12:01-0500 Diastolic blood pressure 84 mm[Hg] Services [facility] Work Phone: [facility] 10-29-2022 12:01-0500 Heart rate 60 /min Services [facility] Work Phone: [facility] 10-29-2022 12:01-0500 Respiratory rate 18 /min [facility] Work Phone: [facility] 10-29-2022 12:01-0500 SaO2% (BldA) [Mass fraction] 99 % [facility] Work Phone: [facility] 10-29-2022 12:01-0500 Systolic blood pressure 109 mm[Hg] [facility] Work Phone: [facility] 08-22-2022 12:00-0400 Body temperature 98 [degF] [facility] Work Phone: [facility] 08-22-2022 12:00-0400 Diastolic blood pressure 78 mm[Hg] [facility] Work Phone: [facility] 08-22-2022 12:00-0400 Heart rate 80 /min [facility] Work Phone: [facility] 08-22-2022 12:00-0400 Respiratory rate 18 /min [facility] Work Phone: [facility] 08-22-2022 12:00-0400 SaO2% (BldA) [Mass fraction] 95 % [facility] Work Phone: [facility] 08-22-2022 12:00-0400 Systolic blood pressure 121 mm[Hg] [facility] Work Phone: [facility] 08-22-2022 05:50-0400 Body weight 77.5 kg [facility] Work Phone: [facility] 08-21-2022 11:27-0400 Body height 157.48 cm [facility] Work Phone: [facility] 08-20-2022 16:34-0400 Diastolic blood pressure 90 mm[Hg] Services [facility] Work Phone: [facility] 08-20-2022 16:34-0400 Heart rate 68 /min [facility] Work Phone: [facility] 08-20-2022 16:34-0400 Respiratory rate 20 /min [facility] Work Phone: [facility] 08-20-2022 16:34-0400 SaO2% (BldA) [Mass fraction] 96 % [facility] Work Phone: [facility] 08-20-2022 16:34-0400 Systolic blood pressure 142 mm[Hg] Services [facility] Work Phone: [facility] 08-20-2022 11:58-0400 Body height 157.48 cm [facility] Work Phone: [facility] 08-20-2022 11:58-0400 Body temperature 97.9 [degF] Services [facility] Work Phone: [facility] 08-20-2022 11:58-0400 Body weight 79.37 kg [facility] Work Phone: [facility] 08-20-2022 01:00-0400 Body temperature 97.9 [degF] [facility] Work Phone: [facility] 08-20-2022 01:00-0400 Diastolic blood pressure 72 mm[Hg] [facility] Work Phone: [facility] 08-20-2022 01:00-0400 Heart rate 53 /min [facility] Work Phone: [facility] 08-20-2022 01:00-0400 Respiratory rate 16 /min [facility] Work Phone: [facility] 08-20-2022 01:00-0400 SaO2% (BldA) [Mass fraction] 97 % [facility] Work Phone: [facility] 08-20-2022 01:00-0400 Systolic blood pressure 131 mm[Hg] [facility] Work Phone: [facility] 08-19-2022 18:57-0400 Body height 157.48 cm [facility] Work Phone: [facility] 08-19-2022 18:57-0400 Body weight 79.37 kg [facility] Work Phone: [facility] 08-19-2022 14:00-0400 Diastolic blood pressure 79 mm[Hg] [facility] Work Phone: [facility] 08-19-2022 14:00-0400 Heart rate 67 /min [facility] Work Phone: [facility] 08-19-2022 14:00-0400 Respiratory rate 20 /min [facility] Work Phone: [facility] 08-19-2022 14:00-0400 SaO2% (BldA) [Mass fraction] 99 % [facility] Work Phone: [facility] 08-19-2022 14:00-0400 Systolic blood pressure 139 mm[Hg] [facility] Work Phone: [facility] 08-19-2022 00:40-0400 Body height 157.48 cm [facility] Work Phone: [facility] 08-19-2022 00:40-0400 Body temperature 98.8 [degF] [facility] Work Phone: [facility] 08-19-2022 00:40-0400 Body weight 77.11 kg [facility] Work Phone: [facility] 08-18-2022 15:28-0400 Body temperature 97.8 [degF] [facility] Work Phone: [facility] 08-18-2022 15:28-0400 Diastolic blood pressure 90 mm[Hg] [facility] Work Phone: [facility] 08-18-2022 15:28-0400 Heart rate 54 /min [facility] Work Phone: [facility] 08-18-2022 15:28-0400 Respiratory rate 20 /min [facility] Work Phone: [facility] 08-18-2022 15:28-0400 SaO2% (BldA) [Mass fraction] 100 % [facility] Work Phone: [facility] 08-18-2022 15:28-0400 Systolic blood pressure 135 mm[Hg] [facility] Work Phone: [facility] 08-18-2022 12:26-0400 Body height 157.48 cm [facility] Work Phone: [facility] 08-18-2022 12:26-0400 Body weight 77.11 kg [facility] Work Phone: [facility] 06-09-2022 10:25-0400 Diastolic blood pressure 51 mm[Hg] [facility] Work Phone: [facility] 06-09-2022 10:25-0400 Heart rate 83 /min [facility] Work Phone: [facility] 06-09-2022 10:25-0400 Respiratory rate 20 /min Services [email or web address] [facility] Work Phone: [facility] 06-09-2022 10:25-0400 SaO2% (BldA) [Mass fraction] 98 % [facility] Work Phone: [facility] 06-09-2022 10:25-0400 Systolic blood pressure 92 mm[Hg] [facility] Work Phone: [facility] 06-09-2022 08:46-0400 Body height 157.48 cm Services [email or web address] [facility] Work Phone: [facility] 06-09-2022 08:46-0400 Body mass index (BMI) [Percentile] Per age and sex 96.2 % Services [email or web address] [facility] Work Phone: [facility] 06-09-2022 08:46-0400 Body mass index (BMI) [Ratio] 32 kg/m2 Services [email or web address] [facility] Work Phone: [facility] 06-09-2022 08:46-0400 Body temperature 97.4 [degF] [facility] Work Phone: [facility] 06-09-2022 08:46-0400 Body weight 79.37 kg [facility] Work Phone: [facility] 05-16-2022 13:52-0400 Diastolic blood pressure 96 mm[Hg] [facility] Work Phone: [facility] 05-16-2022 13:52-0400 Heart rate 66 /min [facility] Work Phone: [facility] 05-16-2022 13:52-0400 Respiratory rate 18 /min Services [facility] Work Phone: [facility] 05-16-2022 13:52-0400 SaO2% (BldA) [Mass fraction] 100 % Services [facility] Work Phone: [facility] 05-16-2022 13:52-0400 Systolic blood pressure 138 mm[Hg] [facility] Work Phone: [facility] 05-16-2022 11:54-0400 Body height 157.48 cm [facility] Work Phone: [facility] 05-16-2022 11:54-0400 Body mass index (BMI) [Percentile] Per age and sex 95.5 % Services [facility] Work Phone: [facility] 05-16-2022 11:54-0400 Body mass index (BMI) [Ratio] 31.1 kg/m2 [facility] Work Phone: [facility] 05-16-2022 11:54-0400 Body temperature 98.4 [degF] [facility] Work Phone: [facility] 05-16-2022 11:54-0400 Body weight 77.11 kg Services [email or web address] [facility] Work Phone: [facility] 05-15-2022 15:30-0400 Diastolic blood pressure 82 mm[Hg] [facility] Work Phone: [facility] 05-15-2022 15:30-0400 Heart rate 52 /min [facility] Work Phone: [facility] 05-15-2022 15:30-0400 Respiratory rate 14 /min [facility] Work Phone: [facility] 05-15-2022 15:30-0400 SaO2% (BldA) [Mass fraction] 99 % [facility] Work Phone: [facility] 05-15-2022 15:30-0400 Systolic blood pressure 134 mm[Hg] [facility] Work Phone: [facility] 05-15-2022 12:28-0400 Body height 157.48 cm [facility] Work Phone: [facility] 05-15-2022 12:28-0400 Body mass index (BMI) [Percentile] Per age and sex 95.5 % [facility] Work Phone: [facility] 05-15-2022 12:28-0400 Body mass index (BMI) [Ratio] 31 kg/m2 [facility] Work Phone: [facility] 05-15-2022 12:28-0400 Body temperature 98.1 [degF] [facility] Work Phone: [facility] 05-15-2022 12:28-0400 Body weight 77 kg [facility] Work Phone: [facility] 05-14-2022 22:56-0400 Body temperature 98.1 [degF] [facility] Work Phone: [facility] 05-14-2022 22:56-0400 Diastolic blood pressure 74 mm[Hg] [facility] Work Phone: [facility] 05-14-2022 22:56-0400 Heart rate 18 /min [facility] Work Phone: [facility] 05-14-2022 22:56-0400 Respiratory rate 18 /min [facility] Work Phone: [facility] 05-14-2022 22:56-0400 SaO2% (BldA) [Mass fraction] 94 % [facility] Work Phone: [facility] 05-14-2022 22:56-0400 Systolic blood pressure 137 mm[Hg] [facility] Work Phone: [facility] 05-14-2022 02:18-0400 Body height 157.48 cm Services [email or web address] [facility] Work Phone: [facility] 05-14-2022 02:18-0400 Body mass index (BMI) [Percentile] Per age and sex 95.5 % Services [email or web address] [facility] Work Phone: [facility] 05-14-2022 02:18-0400 Body mass index (BMI) [Ratio] 31.1 kg/m2 Services [email or web address] [facility] Work Phone: [facility] 05-14-2022 02:18-0400 Body temperature 97.9 [degF] [facility] Work Phone: [facility] 05-14-2022 02:18-0400 Body weight 77.11 kg Services [email or web address] [facility] Work Phone: [facility] 05-14-2022 02:18-0400 Diastolic blood pressure 65 mm[Hg] Services [email or web address] [facility] Work Phone: [facility] 05-14-2022 02:18-0400 Heart rate 54 /min Services [email or web address] [facility] Work Phone: [facility] 05-14-2022 02:18-0400 Respiratory rate 18 /min Services [email or web address] [facility] Work Phone: [facility] 05-14-2022 02:18-0400 SaO2% (BldA) [Mass fraction] 98 % Services [employer] Work Phone: [facility] 05-14-2022 02:18-0400 Systolic blood pressure 133 mm[Hg] Services [email or web address] [facility] Work Phone: [facility] 05-13-2022 12:09-0400 Heart rate 72 /min Services [facility] [employer] Work Phone: [facility] 05-13-2022 12:09-0400 Respiratory rate 18 /min Services [facility] Work Phone: [facility] 05-13-2022 12:09-0400 SaO2% (BldA) [Mass fraction] 98 % Services [facility] Work Phone: [facility] 05-13-2022 10:32-0400 Body height 156.21 cm Services [facility] Work Phone: [facility] 05-13-2022 10:32-0400 Body mass index (BMI) [Percentile] Per age and sex 95.9 % Services [facility] Work Phone: [facility] 05-13-2022 10:32-0400 Body mass index (BMI) [Ratio] 31.6 kg/m2 Services [facility] Work Phone: [facility] 05-13-2022 10:32-0400 Body temperature 98.1 [degF] Services [facility] Work Phone: [facility] 05-13-2022 10:32-0400 Body weight 77.11 kg Services [facility] Work Phone: [facility] 05-13-2022 10:32-0400 Diastolic blood pressure 87 mm[Hg] Services [facility] Work Phone: [facility] 05-13-2022 10:32-0400 Systolic blood pressure 145 mm[Hg] Services [facility] Work Phone: [facility] Encounters Encounter Date Encounter Type Care Provider Facility Start: 05-04-2025 End: 05-04-2025 ambulatory Jasmeet Dahl [facility] Work Phone: Start: 05-04-2025 End: 05-04-2025 Departed Referred Jasmeet Dahl MD Work Phone: [facility] Start: 01-23-2025 End: 01-23-2025 ambulatory [facility] Work Phone: [facility] Work Phone: Start: 01-23-2025 End: 01-23-2025 Departed Referred [facility] Work Phone: [facility] Start: 01-16-2025 End: 01-16-2025 Emergency department patient visit August Zuletaankit [facility] Start: 10-28-2024 End: 10-29-2024 Emergency department patient visit [facility] Work Phone: [facility] Work Phone: Start: 10-28-2024 Non-patient / Non-visit [facility] Work Phone: [facility] Work Phone: Start: 08-03-2024 End: 08-04-2024 Emergency department patient visit [facility] Work Phone: [facility] Work Phone: Start: 08-01-2024 End: 08-01-2024 Emergency department patient visit MODESTA ARCHIBALD [place] Start: 07-30-2024 End: 07-30-2024 Emergency department patient visit Cresencio Abel Facility:[facility] Start: 03-18-2024 End: 03-19-2024 Emergency department patient visit [facility] Work Phone: [facility] Work Phone: Start: 03-15-2024 End: 03-15-2024 Emergency department patient visit August Zuletaankit [facility] Start: 03-13-2024 End: 03-13-2024 Emergency department patient visit Femi Roman [facility] Start: 07-31-2023 End: 07-31-2023 Emergency department patient visit [facility] Work Phone: [facility] Work Phone: Start: 07-14-2023 End: 07-14-2023 ambulatory [facility] Work Phone: [facility] Work Phone: Start: 07-14-2023 End: 07-14-2023 Patient encounter procedure [facility] Work Phone: [facility] Start: 06-16-2023 End: 06-16-2023 ambulatory [facility] Work Phone: [facility] Work Phone: Start: 06-16-2023 End: 06-16-2023 Patient encounter procedure [facility] Work Phone: [facility] Start: 06-02-2023 Postop follow up vis it related to original px [facility] Start: 06-02-2023 End: 06-02-2023 ambulatory [facility] Work Phone: [employer] Other Start: 06-02-2023 End: 06-02-2023 Patient encounter procedure [facility] Work Phone: [facility] Start: 05-25-2023 End: 05-25-2023 Admission to same day surgery center [facility] Work Phone: [facility] Start: 05-25-2023 End: 05-25-2023 ambulatory [facility] Work Phone: [facility] Work Phone: Start: 05-24-2023 End: 05-24-2023 ambulatory Colten Wesleyxa Other [employer] Other Start: 05-24-2023 Telephone encounter Colten Miller [facility] Start: 05-23-2023 End: 05-23-2023 ambulatory Colten Miller Other [facility] Other Start: 05-23-2023 Encounter for other preprocedural examination Colten Miller [facility] Start: 05-23-2023 Office outpatient ne w 45 minutes Colten Miller [facility] Start: 03-15-2023 End: 03-15-2023 Departed Referred Services [facility] Work Phone: [facility] Start: 01-26-2023 End: 01-26-[address] DOCTOR JO Facility:H1 Start: 01-06-2023 End: 01-07-2023 Evaluation and management of inpatient Services [facility] Work Phone: [facility] Work Phone: Start: 01-06-2023 observation encounter Services [facility] Work Phone: [facility] Work Phone: Start: 01-06-2023 End: 01-07-2023 Services [facility] Work Phone: [facility] [place] [facility] Work Phone: Start: 01-02-2023 End: 01-02-2023 Services [facility] Work Phone: [facility] Work Phone: Start: 01-01-2023 End: 01-01-2023 ambulatory IRWIN DIAB . Facility:H1 Start: 12-31-2022 End: 12-31-2022 Emergency department patient visit Services [facility] Work Phone: [facility] Work Phone: Start: 12-31-2022 End: 12-31-2022 Services [facility] Work Phone: [facility] Work Phone: Start: 11-09-2022 End: 11-09-2022 Emergency department patient visit Services [facility] Work Phone: [facility] Work Phone: Start: 11-09-2022 End: 11-09-2022 Services [facility] Work Phone: [facility] Start: 11-07-2022 End: 11-07-2022 Emergency department patient visit Services [facility] Work Phone: [facility] Work Phone: Start: 11-07-2022 End: 11-07-2022 Services [facility] Work Phone: [facility] Start: 11-02-2022 End: 11-02-2022 Emergency department patient visit Services [facility] Work Phone: [facility] Work Phone: Start: 11-02-2022 End: 11-02-2022 Services [facility] Work Phone: [facility] Start: 10-31-2022 End: 10-31-2022 Emergency department patient visit Services [facility] Work Phone: [facility] Work Phone: Start: 10-31-2022 End: 10-31-2022 Services [facility] Work Phone: [facility] Start: 10-29-2022 End: 10-29-2022 Emergency department patient visit Services [facility] Work Phone: [facility] Start: 10-29-2022 End: 10-29-2022 Services [facility] Work Phone: [facility] Start: 08-27-2022 End: 08-27-2022 Departed Referred Services [facility] Work Phone: [facility] Start: 08-27-2022 End: 08-27-2022 Services [facility] Work Phone: [facility] Start: 08-20-2022 End: 08-22-2022 Evaluation and management of inpatient Services [facility] Work Phone: [facility] [place] [facility] Start: 08-20-2022 End: 08-22-2022 Services [facility] Work Phone: [facility] [place] [facility] Start: 08-19-2022 End: 08-20-2022 Emergency department patient visit Services [facility] Work Phone: [facility] Start: 08-19-2022 End: 08-20-2022 Services [facility] Work Phone: [facility] Start: 08-19-2022 End: 08-19-2022 Emergency department patient visit Services [facility] Work Phone: [facility] Start: 08-19-2022 End: 08-19-2022 Services [facility] Work Phone: [facility] Start: 08-18-2022 End: 08-18-2022 Emergency department patient visit Services [facility] Work Phone: [facility] Start: 08-18-2022 End: 08-18-2022 Services [facility] Work Phone: [facility] Start: 06-25-2022 End: 06-25-2022 Departed Referred Services [facility] Work Phone: [facility] Start: 06-09-2022 End: 06-09-2022 Admission to same day surgery center Services [facility] Work Phone: [facility] Start: 06-07-2022 End: 06-07-2022 Patient encounter procedure Services [facility] Work Phone: [facility] Start: 05-26-2022 End: 05-26-2022 Departed Referred Services [facility] Work Phone: [facility] Start: 05-16-2022 ambulatory 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 Comment on above: Abdominal Pain Start: 05-16-2022 End: 05-16-2022 Emergency department patient visit Services [facility] Work Phone: [facility] Start: 05-15-2022 End: 05-15-2022 Emergency department patient visit Services [facility] Work Phone: [facility] Start: 05-14-2022 End: 05-14-2022 Emergency department patient visit Services [facility] Work Phone: [facility] Start: 05-14-2022 End: 05-14-2022 Emergency department patient visit Services [facility] Work Phone: [facility] Start: 05-13-2022 End: 05-13-2022 Emergency department patient visit Services [facility] Work Phone: [facility] Start: 06-23-2018 Evaluation and manag ement of inpatient Radha Unger Facility:[facility] Start: 06-16-2018 Patient encounter DALI B SPLAWSKI Fa cility:[id number] Start: 06-05-2018 Patient encounter Mere T Calvin Facility:[id number] Start: 04-14-2018 Patient encounter DALI B SPLAWSKI Fa cility:[id number] Start: 02-17-2018 Patient encounter Mere Simpson Facility:[id number] Start: 02-10-2018 Patient encounter DALI B SPLAWSKI Fa cility:[id number] Start: 12-16-2017 Patient encounter DALI B SPLAWSKI Fa cility:[id number] Start: 10-14-2017 Patient encounter DALI B SPLAWSKI Fa cility:[id number] Start: 09-28-2017 Patient encounter Mere Solorio Calvin Facility:[id number] Start: 08-25-2017 Patient encounter DALI B SPLAWSKI Fa cility:[facility] Start: 08-09-2017 End: 08-24-2017 Evaluation and management of inpatient AIMEE ALEMAN Facility:[facility] Procedures Date Procedure Procedure Detail Performing Clinician Start: 10-28-2024 Urine culture Services [facility] [employer] Phone: Start: 07-14-2023 X-ray of right knee Services [facility] Phone: Start: 06-16-2023 X-ray of right knee Services [facility] Phone: Start: 06-02-2023 X-ray of right knee Services [employer] Work Phone: Start: 05-25-2023 Arthroscopy of knee Services [facility] Phone: Start: 03-15-2023 Respiratory Panel (PCR) Services [facility] [employer] Phone: Start: 01-06-2023 Computed tomography of abdomen and pelvis with contrast Services [facility] Phone: Start: 01-06-2023 Plain chest X-ray Services [facility] Phone: Start: 01-06-2023 Pelvis X-ray Services [facility] Phone: Start: 01-02-2023 Urine culture Services [facility] Phone: Start: 12-31-2022 Influenza A and B virus antigen assay Services [facility] Phone: Start: 12-31-2022 Urine culture Services [facility] Phone: Start: 11-02-2022 Urine culture Services [facility] Phone: Start: 10-31-2022 Urine culture Services [facility] Phone: Start: 08-19-2022 Computed tomography of abdomen and pelvis with contrast Services [facility] [employer] Phone: Start: 06-09-2022 Esophagogastroduodenoscopy Services [facility] [employer] Work Phone: Start: 05-16-2022 Computed tomography of abdomen and pelvis with contrast Services [facility] [employer] Phone: Start: 08-21-2017 Introduction of Nutritional Substance [...] Treatment Date Care Activity Detail Author Start: 05-04-2025 Bacteria identified in Urine by Culture Urine Culture [facility] Start: 05-04-[address] [facility] Start: 01-23-2025 Bacteria identified in Urine by Culture Urine Culture [facility] Start: 01-23-[address] [facility] Start: 08-03-2024 [facility] Start: 03-18-2024 [facility] Start: 05-25-2023 [facility] Start: 05-25-2023 [facility] Start: 01-08-[address] [facility] Start: 01-08-2023 [facility] Start: 01-07-[address] [facility] Start: 01-07-2023 End: 01-07-2023 [facility] Start: 01-06-2023 Patient referral to dietitian [facility] Start: 01-06-[address] [facility] Start: 01-06-2023 [facility] Start: 01-06-2023 Computed tomography of abdomen and pelvis with contrast [facility] Start: 01-06-2023 CT Abdomen and Pelvis W contrast IV [facility] Start: 01-06-2023 End: 01-06-2023 [facility] Start: 01-06-[address] [facility] Start: 12-31-2022 End: 12-31-2022 [facility] Start: 11-09-2022 [facility] Start: 10-29-2022 [facility] Start: 08-22-2022 [facility] Start: 08-22-2022 [facility] Work Phone: Start: 08-20-[address] [facility] Start: 08-20-2022 [facility] Work Phone: Start: 08-20-2022 [facility] Work Phone: Start: 08-19-2022 Computed tomography of abdomen and pelvis with contrast CT abdomen pelvis w con [facility] Start: 08-19-2022 CT Abdomen and Pelvis W contrast IV [facility] Work Phone: Start: 08-19-2022 [facility] Work Phone: Start: 07-29-2022 Influenza vaccination INFLUENZA (Season Ended) [facility] Start: 06-09-2022 [facility] Work Phone: Start: 2022 CHLAMYDIA SCREENING (18-24) CHLAMYDIA SCREENING (18-24) [facility] Start: 2022 GC (GONORRHEA) SCREENING (18-24) GC (GONORRHEA) SCREENING (18-24) [facility] Start: 2022 HEPATITIS C SCREENING HEPATITIS C SCREENING [facility] Start: 2022 HIV SCREENING HIV SCREENING [facility] Start: 2020 MENINGOCOCCAL CONJUGATE (1 - 2-dose series) MENINGOCOCCAL CONJUGATE (1 - 2-dose series) [facility] Start: 2018 PEDS TO ADULT TRANSITION ANNUAL ASSESSMENT PEDS TO ADULT TRANSITION ANNUAL ASSESSMENT [facility] Start: 2016 Adult depression screening assessment DEPRESSION SCREENING [facility] Start: 2016 PEDS TO ADULT TRANSITION INITIAL DISCUSSION PEDS TO ADULT TRANSITION INITIAL DISCUSSION [facility] Start: 2015 HPV VACCINE (1 - 2-dose series) HPV VACCINE (1 - 2-dose series) [facility] Start: 2014 MENINGOCOCCAL B: Consider based on risk (1 of 2 - Risk Bexsero 2-dose series) MENINGOCOCCAL B: Consider based on risk (1 of 2 - Risk Bexsero 2-dose series) [facility] Start: 2011 Urine microalbumin profile DTAP,TDAP,TD (1 - Tdap) [facility] Start: 2009 COVID-19 VACCINE (#1) [facility] Amphetamines [Presen ce] in Urine [facility] Work Phone: Bacteria identified in Blood by Culture [facility] Bacteria identified in Urine by Culture [facility] Bacteria identified in Urine by Culture [facility] Barbiturates [Presen ce] in Urine [facility] Work Phone: Basophils [#/volume] in Blood by Automated count [facility] Basophils/100 leukoc ytes in Blood by Automated count [facility] Benzodiazepines [Pre sence] in Urine [facility] Work Phone: Bilirubin measurement, urine [facility] Work Phone: Cannabinoids [Presen ce] in Urine by Screen method [facility] Work Phone: Choriogonadotropin ( test) [Presence] in Urine [facility] Work Phone: Cocaine [Presence] in Urine [facility] Work Phone: Color of Urine [facility] Work Phone: Detection of hemoglobin [facility] Work Phone: Eosinophils/100 leuk ocytes in Blood by Automated count [facility] Erythrocyte distribu tion width [Ratio] by Automated count [facility] Erythrocytes [#/volu me] in Blood [facility] Glucose [Mass/volume ] in Urine by Test strip [facility] Work Phone: Hematocrit [Volume F raction] of Blood [facility] Hemoglobin [Mass/vol ume] in Blood [facility] Homogenous nuclear A b pattern [Titer] in Serum [facility] Work Phone: Leukocytes [#/volume ] corrected for nucleated erythrocytes in Blood by Automated coun [facility] Leukocytes [#/volume ] in Blood [facility] Lymphocytes [#/volum e] in Blood by Automated count [facility] Lymphocytes/100 leuk ocytes in Blood by Automated count [facility] MCH [Entitic mass] b y Automated count [facility] MCHC [Mass/volume] b y Automated count [facility] MCV [Entitic volume] by Automated count [facility] Measurement of keton es in urine using dipstick [facility] Work Phone: Monocytes [#/volume] in Blood by Automated count [facility] Monocytes/100 leukoc ytes in Blood by Automated count [facility] Neutrophils [#/volum e] in Blood by Automated count [facility] Neutrophils/100 leuk ocytes in Blood by Automated count [facility] Nuclear Ab [Titer] in Serum [facility] Work Phone: Nucleated erythrocyt es [Presence] in Blood by Automated count [facility] Patient Education [facility] Work Phone: Patient referral [facility] Work Phone: Phencyclidine [Prese nce] in Urine [facility] Work Phone: Platelet mean volume [Entitic volume] in Blood by Automated count [facility] Platelets [#/volume] in Blood [facility] Protein measurement, urine [facility] Work Phone: SARS-CoV-2 (COVID-19 ) N gene [Presence] in Respiratory specimen by JANAK with probe detection [facility] Work Phone: Urinalysis, specific gravity measurement [facility] Work Phone: Urine culture Urine Culture [facility] Urine culture [facility] Urine dipstick for nitrite [facility] Work Phone: Urine dipstick for s pecific gravity [facility] Work Phone: Urine pH test [facility] Work Phone: Urobilinogen concent ration, test strip measurement [facility] Work Phone: [facility] Immunizations Immunization Date Immunization Notes Care Provider Fa christiano 01-17-2018 tetanus toxoid, redu yoni diphtheria toxoid, and acellular pertussis vaccine, adsorbed Services [facility] Work Phone: [facility] 01-07-2017 Human Papillomavirus 9-valent vaccine Colten Olexa Other Workday [facility] Other 01-07-2017 HPV, unspecified formulation Services [facility] Phone: [facility] 09-06-2016 influenza, injectabl e, quadrivalent, preservative free Colten Olexa Other [facility] 09-06-2016 Human Papillomavirus 9-valent vaccine Colten Olexa Other [facility] Other 09-06-2016 HPV, unspecified formulation Services [facility] Phone: [facility] 07-01-2016 human papilloma viru s vaccine, quadrivalent Colten Olexa Other [facility] 07-01-2016 meningococcal polysaccharide (groups A, C, Y and W-135) diphtheria toxoid conjugate vaccine (MCV4P) Colten Olexa Other [facility] 07-01-2016 tetanus toxoid, redu yoni diphtheria toxoid, and acellular pertussis vaccine, adsorbed Colten Olexa Other [facility] 09-01-2015 influenza, injectabl e, quadrivalent, preservative free Colten Olexa Other [facility] 08-19-2014 influenza, injectabl e, quadrivalent, contains preservative Services [facility] Work Phone: [facility] 08-19-2014 influenza, injectabl e, quadrivalent, preservative free Colten Olexa Other [employer] Other 08-17-2013 influenza, seasonal, injectable, preservative free Colten Olexa Other [facility] Payers Date Payer Category Payer Self-pay 2019 Medicaid [facility] [id number] 2019-Present [phone] [address] [place] [address] Medicaid [id number] 2004 Unknown [id number] 2004 Unknown [id number] 2004 Unknown [id number] 2004 Unknown [id number] 2004 Unknown [id number] 2004 Unknown [id number] 2004 Unknown [id number] 2004 Unknown [id number] 1969 Unknown [id number] 1969 Unknown [id number] 1959 Medicaid [id number] Medicaid [id number] Medicaid [id number] Unknown [id number] Unknown [id number] Unknown [id number] Unknown [id number] Unknown [id number] Unknown [id number] Unknown [id number] Unknown [id number] Unknown [id number] Social History Date Type Detail Facility Start: 10-09-2021 End: 03-13-2024 Tobacco smoking status NHIS Never smoked tobacco [facility] Start: 10-09-2021 Tobacco use and exposure Smokeless tobacco non-user [facility] Start: 10-09-2021 Alcohol intake Lifetime non-d isael (finding) [facility] Start: 10-09-2021 History SDOH Alcohol Frequency 1 [facility] Start: 2004 Sex Assigned At Not on file C [facility] Start: 06-09-2022 End: 08-03-2024 Tobacco smoking status NHIS Smoker (finding) [facility] Start: 2004 Sex Assigned At Female F [facility] Start: 08-18-2022 End: 10-28-2024 Tobacco smoking status NHIS Current some day smoker [facility] Start: 01-06-2023 Tobacco smoking status NHIS Ex-smoker (finding) [facility] Sex Assigned At [facility] Tobacco smoking status Never [facility] Start: 01-24-2025 End: 05-05-2025 Sex Female (finding) [facility] NEGATED: Highlighted row [facility] Medical Equipment Procedure Code Equipment Code Equipment Origin al Text Equipment Identifier Dates Arthroscopy, knee Tendon/ligamen t bone anchor, non-bioabsorbable [id number] FDA Start: 05-25-2023 Arthroscopy, knee Soft-tissue/me sh anchor, non-bioabsorbable [id number] FDA Start: 05-25-2023 Arthroscopy, knee Tendon/ligamen t bone anchor, bioabsorbable [id number] FDA Start: 05-25-2023 Goals Date Patient Goal Desired Activity /State Functional Status Date Assessment Result Facility 01-16-2025 Functional Status N/A [facility] 07-30-2024 Functional Status N/A [facility] 03-15-2024 Functional Status N/A [facility] 03-13-2024 Functional Status N/A [facility] 01-07-2023 Functional status Patient at Baseline [facility] Work Phone: 01-06-2023 Functional status Patient at Baseline [facility] Work Phone: 08-22-2022 Functional status Patient at Baseline [facility] Work Phone: Mental Status Date Assessment Result Facility 01-07-2023 Cognitive function Patient at Baseline [facility] Work Phone: 01-06-2023 Cognitive function Patient at Baseline [facility] Work Phone: 08-22-2022 Cognitive function Patient at Baseline [facility] Work Phone: Clinical Notes 09-28-2015 to 01-16-2025 [...] your activities and whether you should start vpoen-gw-bcauyr exercises for your injury. Ice Ice your [...] provider. Document Revised: 2021 Document Reviewed: 08/04/2018 [employer] Patient Education 2020 [employer] 01/16/2025 20:36:16 Contusion Contusion A contusion [...] sitting or lying down. General instructions Take kbwk-gxs-rfdqxxq and prescription medicines only as told by [...] provider. Document Revised: 05/02/2023 Document Reviewed: 05/02/2023 [employer] Patient Education 2023 [employer]. 01/16/2025 20:36:16 Fall Prevention in the Home, Adult, Ixht-vj-Hsij Fall Prevention in the Home, Adult Falls [...] Keep items that you use often in opqk-tm-upmmz places. Lower the shelves around your home [...] of the way. Do not use floor divehi or wax that makes floors slippery. What [...] information Centers for Disease Control and Prevention, STEADI: cdc.gov National [place] on Aging: jacob.nih.gov National [place] on Aging: jacob.nih.gov Contact a doctor if: [...] provider. Document Revised: 07/18/2023 Document Reviewed: 07/18/2023 [employer] Patient Education 2023 [employer]. Follow Up Care 01/16/2025 17:51:58 With:MODESTA CHAND Address: [address] [place] [phone] Business (1) When:2025 20:14:58 Comments:Call Dr for diagnosis based follow up [facility] 01-16-2025 Note ED Patient Education Note Caregiving [...] Keep items that you use often in xulf-wg-qfutd places. Lower the shelves around your home [...] the way. ??? Do not use floor divehi or wax that makes floors slippery. What [...] Control and Prevention, ANASTACIO: cdc.gov ??? National [place] on Aging: jacob.nih.gov ??? National [place] on Aging: jacob.nih.gov Contact a doctor if: [...] will go away. (more content not included)... [facility] 08-01-2024 Note ED Patient Education Note Gastroenterology [...] such as yogurt. General instructions ? Take zfgw-bni-ppxmjtk and prescription medicines only as told by [...] provider. Document Revised: 07/29/2022 Document Reviewed: 07/29/2022 [employer] Patient Education ? 2023 [employer] Nausea and Vomiting, Adult Nausea is [...] has water adde (more content not included)... [facility] 07-31-2024 Hospital Discharg e instructions Patient Education [...] water added (diluted fruit juice). Eat bland, flkr-rp-njhlpc foods in small amounts as you are able. These foods include bananas, applesauce, rice, lean meats, toast, and crackers. Avoid fluids that contain a lot of sugar or caffeine, such as energy drinks, sports drinks, and soda. Avoid alcohol. Avoid spicy or fatty foods. General instructions Take dyit-boh-kuanylm and prescription medicines only as told by your health care provider. Drink enough fluid to keep your urine pale yellow. Wash your hands often using soap and water for at least 20 seconds. If soap and water are not available, use hand music video director. Make sure that everyone in your household [...] eating and drinking to prevent dehydration. Take oswa-qad-tceobkq and prescription medicines only as told by [...] provider. Document Revised: 05/21/2022 Document Reviewed: 05/21/2022 [employer] Patient Education 2023 [employer] Follow Up Care 07/30/2024 19:27:35 With:FAMILIA CHAND Address: [facility] [place] [phone] (1) When:08/02/2024 [facility] 07-30-2024 Note ED Patient Education Note Gastroenterology [...] added (diluted fruit juice). ? Eat bland, tohh-kr-rrvayj foods in small amounts as you are able. These foods include bananas, applesauce, rice, lean meats, toast, and crackers. ? Avoid fluids that contain a lot of sugar or caffeine, such as energy drinks, sports drinks, and soda. ? Avoid alcohol. ? Avoid spicy or fatty foods. General instructions ? Take zewm-gkg-buzfwky and prescription medicines only as told by your health care provider. ? Drink enough fluid to keep your urine pale yellow. ? Wash your hands often using soap and water for at least 20 seconds. If soap and water are not available, use hand music video director. ? Make sure that everyone in your [...] and drinking to prevent dehydration. ? Take vhoy-zbf-frxeupd and prescription medicines only as told by [...] provider. Document Revised: 05/21/2022 Document Reviewed: 05/21/2022 [employer] Patient Education ? 2023 [employer]. [facility] 07-30-2024 Evaluation + Plan note Extrac venkata [...] Nausea/Vomiting, # 16 tab(s), Refills(s) 0, Pharmacy: [facility]/pharmacy #[id number], 157, cm, 07/30/24 19:37:00 EDT, Height/Length Dosing, 96.1, kg, 07/30/24 19:37:00 EDT, Weight Dosing promethazine, 12.5 mg = 1 tab(s), Oral, q8hr, PRN as needed for nausea/vomiting, second line, # 10 tab(s), Refills(s) 0, Pharmacy: [facility]/pharmacy #[id number], 157, cm, 07/30/24 19:37:00 EDT, Height/Length Dosing, 96.1, kg, 07/30/24 19:37:00 EDT, Weight Dosing promethazine, 12.5 mg = 1 supp, Rectal, q8hr, PRN as needed for nausea/vomiting, 3rd line, # 6 EA, Refills(s) 0, Pharmacy: [facility]/pharmacy #[id number], 157, cm, 07/30/24 19:37:00 [...] Lipase Level Magnesium Level Saline Lock Insert [facility] 04-18-2024 Hospital Discharge instructions Patient Education 03/15/2024 [...] careprovider. Do not use recreational drugs. Take tuul-kmd-iusqezi and prescription medicines only as told by [...] provider. Document Revised: 06/08/2022 Document Reviewed: 06/08/2022 [employer] Patient Education 2022 [employer]. 03/15/2024 13:49:41 Nausea and Vomiting, Adult Nausea [...] water added (diluted fruit juice). Eat bland, lash-ab-snqnev foods in small amounts as you are able. These foods include bananas, applesauce, rice, lean meats, toast, and crackers. Avoid fluids that contain a lot of sugar or caffeine, such as energy drinks, sports drinks, and soda. Avoid alcohol. Avoid spicy or fatty foods. General instructions Take ttbg-cqu-zklpmci and prescription medicines only as told by your health care provider. Drink enough fluid to keep your urine pale yellow. Wash your hands often using soap and water for at least 20 seconds. If soap and water are not available, use hand music video director. Make sure that everyone in your household [...] eating and drinking to prevent dehydration. Take zbho-scw-vwdtwys and prescription medicines only as told by [...] provider. Document Revised: 05/21/2022 Document Reviewed: 05/21/2022 [employer] Patient Education 2022 [employer]. Follow Up Care 03/15/2024 10:34:05 With:Kirk Serrano Address:Unknown When:03/22/2024 13:33:04 Comments:Make sure to follow-up with Dr. Serrano at the surgery clinic in 1 week as instructed. Return to the emergency room if you develop chest pain, shortness of breath or any symptoms. [facility]04-18-2024 Evaluation + Plan noteExtracted from: Title:ED Note Author:August eBck M.D. te:03/15/24 1. Nausea and vomiting (R11. [...] CT Chest w/ Contrast eGFR Magnesium Level [facility]04-17-2024 Hospital Discharge instructions Patient Education 03/13/2024 22:27:59 Nausea and Vomiting, Adult, Wdmw-fu-Xjch Nausea and Vomiting, Adult Nausea is feeling [...] fruit juice). ?Low-calorie sports drinks. Eat bland, ifyr-ub-zuondv foods in small amounts as you are able, such as: ?Bananas. ?Applesauce. ?Rice. ?Low-fat (lean) meats. ?[place]. ?Crackers. Avoid drinking fluids that have a lot of sugar or caffeine in them. This includes energy drinks, sports drinks, and soda. Avoid alcohol. Avoid spicy or fatty foods. General instructions Take cqvz-vsl-mcncqwb and prescription medicines only as told by your doctor. Drink enough fluid to keep your pee (urine) pale yellow. Wash your hands often with soap and water for at least 20 seconds. If you cannot use soap and water, use hand music video director. Make sure that everyone in your home [...] your doctor about eating and drinking. Take ljpk-dwc-emakuub and prescription medicines only as told by your doctor. Contact your doctor if your symptoms get worse or you have new symptoms. Keep all follow-up visits. This information is not intended to replace advice given to you by your health care provider. Make sure you discuss any questions you have with your health care provider. Document Revised: 05/21/2022 Document Reviewed: 05/21/2022 [employer] Patient Education 2022 [employer] 03/13/2024 22:27:59 Muscle Strain, Amlo-pv-Bkfn Muscle Strain A muscle strain, or pulled [...] is not too tight. General instructions Take bhey-tlz-rjvcoek and prescription medicines only as told by [...] provider. Document Revised: 02/01/2022 Document Reviewed: 02/01/2022 [employer] Patient Education 2022 [employer]. Follow Up Care 03/13/2024 17:33:30 With:MODESTA ARCHIBALD Address: [address] [place] [address] [phone] Business (1) When:03/16/2024 Comments:You can use the medications as prescribed as needed for pain, nausea. Please follow-up with your primary care doctor for further evaluation and management. Please return to the ED if you develop chest pain, difficulty breathing or if any concerning signs or symptoms. [facility]04-16-2024 Evaluation + Plan noteExtracted from: Title:ED Note [...] for 3 day(s), 7 tab(s), Refill(s) 0, [facility]/pharmacy #[id number], 160, cm, 03/13/24 17:38:00 [...] day(s), # 9 tab(s), Refills(s) 0, Pharmacy: [facility]/pharmacy #[id number], 160, cm, 03/13/24 17:38:00 EDT, Height/Length Dosing, 95.5, kg, 03/13/24 17:38:00 EDT, Weight Dosing morphine, 4 mg = 1 mL, Injection, IV Push, Once, Stop date 03/13/24 19:50:00 EDT, STAT, Start date 03/13/24 19:50:00 EDT, 03/13/24 19:50:00 EDT naproxen, 500 mg = 1 tab(s), Oral, BID, PRN for pain, # 20 tab(s), Refills(s) 0, Pharmacy: [facility]/pharmacy #[id number], 160, cm, 03/13/24 17:38:00 EDT, Height/Length Dosing, 95.5, kg, 03/13/24 17:38:00 EDT, Weight Dosing orphenadrine, 60 mg = 2 mL, Injection, IV Push, Once, Stop date 03/13/24 20:27:00 EDT, STAT, Start date 03/13/24 20:27:00 EDT, 03/13/24 20:27:00 EDT promethazine, 25 mg = 1 supp, Rectal, q6hr, PRN Nausea/Vomiting, # 6 EA, Refills(s) 0, Pharmacy: [facility]/pharmacy #[id number], 160, cm, 03/13/24 17:38:00 [...] kg, 2.06, m2 XR Chest 2 Views [facility]07-06-2023 Evaluation note* Encounter Date Diagnosis Assessment Notes [...] Other specified postprocedural states (ICD-10 - Z98.890) [facility] Other 06-27-2023 Evaluation note* Encounter Date Diagnosis Assessment Notes Treatment Notes Treatment Clinical Notes Apr, Other specified postprocedural states (ICD-10 - Z98.890) [facility] Other 06-26-2023 Evaluation note* Encounter Date Diagnosis [...] pain for many months 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 We have discussed the many potential complications of surgery including respiratory, cardiac, and patient positioning during anesthesia. 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 January 07, 2023 2:11am Note Date/Time January 06, 2023 5 :30pm [facility] [address] [place] [address] Hospitalist H&P Signed Patient: Pili Parikh MR#: [id number] : 2005 Acct:[id number] Age/Sex: 17 / F Adm Date: 3 Loc: Room: [address] [place] [address] Type: ADM INOo Attending Dr: Eliana Bautista MD Copies to: [facility] FRANKY Starkey MD~ HPI DATE OF EXAMINATION: [...] noted in the HPI or below [facility] Attestation Statement: The following information was [...] % (Auto) 19.9 % (.) 01/06/23 14:20 [place] % (Auto) 7.4 % (.) 01/06/23 14:20 Eos % (Auto) 2.3 % (.) 01/06/23 14:20 Baso % (Auto) 0.3 % (.) 01/06/23 14:20 Nucleat RBC Rel Count 0.1 /100 WBC (0-0.5) 01/06/23 14:20 Neut # (Auto) 12.4 x10E3/uL (1.2-7.7) H 01/06/23 14:20 Lymph # (Auto) 3.5 x10E3/uL (1.20-4.8) 01/06/23 14:20 [place] # (Auto) 1.3 x10E3/uL (0.1-1.00) H 01/06/23 [...] pH 6.5 (5.0-9.0) 01/06/23 16:10 Ur Specific Bellamy 1.027 (1.001-1.030) 01/06/23 16:10 Urine Protein 100 [...] MD Documented By: Anette Stout APRN 01/06/23 1250 Signed By: <Electronically signed by FRANKY Stout> 01/06/231816 <Electronically signed by Eliana Bautista MD> 01/07/23 0211 [facility] Work Phone: 1(255) 802-245309-24-2022 Progress note Author Gregorio Carey [facility] August 21, 2022 5:01pm Note Date/Time August 21, 2022 5:01pm [facility] [address] [place] [address] Hospitalist Progress Note Signed Patient: Pili Parikh MR#: [id number] : 2005 Acct:[id number] Age/Sex: 17 / F Adm Date: 2 Loc: Room: [address] [place] [address] Type: ADM IN Attending Dr: Gregorio Carey [...] alot of discomfort. She recalls that the automobile bumper straightener told her that in warm water against [...] 1 Gm/10 Ml Udc PO 08/22/23 06:59 TID.AC.[facility] A&P - Hospitalist Assessment/Plan (1) Intractable nausea [...] the morning. Documented By: Gregorio Carey DO [id number] Signed By: <Electronically signed by Gregorio Carey DO> 08/21/22 1701 [facility] Work Phone: 1(791) 174-189209-23-2022 History and physical note Author Gregorio Carey [facility] August 20, 2022 8:17pm Note Date/Time August 20, 2022 8:17pm [facility] [address] [place] [address] Hospitalist H&P Signed Patient: Pili Parikh MR#: [id number] : 2005 Acct:[id number] Age/Sex: 17 / F Adm Date: 2 Loc: Room: [address] [place] [address] Type: ADM IN Attending Dr: Gregorio Carey DO Copies to: [facility] Senior Gregorio Carey DO~ HPI DATE OF [...] % (Auto) 11.5 % (.) 08/20/22 16:21 [place] % (Auto) 3.7 % (.) 08/20/22 16:21 Eos % (Auto) 0.3 % (.) 08/20/22 16:21 Baso % (Auto) 0.4 % (.) 08/20/22 16:21 Neut # (Auto) 9.2 x10E3/uL (1.2-7.7) H 08/20/22 16:21 Lymph # (Auto) 1.3 x10E3/uL (1.20-4.8) 08/20/22 16:21 [place] # (Auto) 0.4 x10E3/uL (0.1-1.00) 08/20/22 16:21 [...] DO> 08/20/222016 [facility] Work Phone: [phone] 199-662406-19-2022 Miscellaneous Notes* Telephone Encounter - Luana Mak [...] if she can find a way to [facility], she will go there. Reason for Disposition Chest pain [1] Chest pain lasts > 5 minutes AND [2] described as crushing, pressure-like, or heavy Protocols used: ABDOMINAL PAIN - VCQVU-VDBPS-GD, CHEST QWZA-LABCK-LV [facility] NoteHNO ID: [id number] Author: Rolando Wooten MD Service: ? Author [...] completed when applicable. PROCEDURE NOTE: IANDD right MOUNTER SOUSAPHONES Risks, benefits, personnel and alternatives were explained. The patient wished to proceed. S/he was re-identified and a time out obtained. PROCEDURE drainage right MOUNTER SOUSAPHONES PREOPERATIVE DIAGNOSIS: right peritonsillar abscess POSTOPERATIVE DIAGNOSIS tonsillitis without pus in right peritonsillar area INDICATIONS: chronic right throat pain, worsening, concern for right MOUNTER SOUSAPHONES at outside facility on scan . Drainage [...] there were no complication. MD Rolando Cherry, [facility]11-12-2021 NoteHNO ID: [id number] Author: Rolando Wooten MD Service: ? Author Type: Physician Type: Progress Notes Filed: 11/13/2021 1:09 AM Note Text: [place] [facility] Consult This consult was requested by [...] tonsillitis. 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 Medical History intermittent asthma Medical History lactose intolerance Medical History POTS diag 09/2015 Surgical History appendectomy 2018 Hospitalization History strepthroat, uri, dehydr ation, otitis media 2004 Hospitalization History dehydtation 2006 Hospitalization History [facility] [place]iti ng 09/12- Hospitalization History 3 days vomitting blood 0 01/2017 Hospitalization History vomiting, abd pain, dehy dration [facility] 07/22-07/27/2017 Hospitalization History RBC 08/14 [facility] Other Evaluation noteNo assessment information available [facility] Work Phone: Evaluation note* Diagnosis [...] Beverley-Cotton tear acute Nausea & vomiting acute [facility] Work Phone: History and physical note Author Eliana Bautista [facility] January 07, 2023 2:11am Note Date/Time January 06, 2023 5 :30pm [facility] [address] [place] [address] Hospitalist H&P Signed Patient: Pili Parikh MR#: [id number] : 2005 Acct:[id number] Age/Sex: 17 / F Adm Date: 3 Loc: 3T Room: [address] [place] [address] Type: ADM INOo Attending Dr: Eliana Bautista MD Copies to: [facility] FRANKY Starkey MD~ HPI DATE OF EXAMINATION: [...] noted in the HPI or below [facility] Attestation Statement: The following information was [...] % (Auto) 19.9 % (.) 01/06/23 14:20 [place] % (Auto) 7.4 % (.) 01/06/23 14:20 Eos % (Auto) 2.3 % (.) 01/06/23 14:20 Baso % (Auto) 0.3 % (.) 01/06/23 14:20 Nucleat RBC Rel Count 0.1 /100 WBC (0-0.5) 01/06/23 14:20 Neut # (Auto) 12.4 x10E3/uL (1.2-7.7) H 01/06/23 14:20 Lymph # (Auto) 3.5 x10E3/uL (1.20-4.8) 01/06/23 14:20 [place] # (Auto) 1.3 x10E3/uL (0.1-1.00) H 01/06/23 [...] pH 6.5 (5.0-9.0) 01/06/23 16:10 Ur Specific [place] 1.027 (1.001-1.030) 01/06/23 16:10 Urine Protein 100 [...] by Eliana Bautista MD> 01/07/23 0211 [facility] Work Phone: Hospital course Narrative No data available for this section [facility] Work Phone: Hospital [...] you should first call your surgeon at [phone] for advice. If your are unable to contact your surgeon, seek help from a hospital emergency room. [facility] Work Phone: Hospital Discharge instructions [...] your family physician as soon as possible.[facility] Work Phone: Progress note No data available for this section [facility] Summary Purpose Family History No Family History [...] Pain, N/V Chief Complaint Dizzy, CP, N/V Chief Complaint Admit Date nausea, vomiting, chest pain October 6:01pm Unknown January 23, 2025 9:25am Chief Complaint Admit Date Unknown May 04, 2025 6:20a m Additional Source Comments INFORMATION SOURCE (unrecogn ized section and content) DATE CREATED AUTHOR 06/05/2018 [employer] DATE CREATED AUTHOR AUTHOR'S ORGANIZ ATION 07/14/2018 [facility] DATE CREATED AUTHOR AUTHOR'S ORGANIZ ATION 01/04/2022 [facility] DATE CREATED AUTHOR AUTHOR'S ORGANIZ ATION 02/02/2023 [facility] DATE CREATED AUTHOR AUTHOR'S ORGANIZ ATION 07/30/2024 [facility] DATE CREATED AUTHOR AUTHOR'S ORGANIZ ATION 08/02/2024 [facility] DATE CREATED AUTHOR AUTHOR'S ORGANIZ ATION 08/05/2024 [facility] DATE CREATED AUTHOR AUTHOR'S ORGANIZ ATION 01/18/2025 [facility] DATE CREATED AUTHOR AUTHOR'S ORGANIZ ATION 01/23/2025 [facility] DATE CREATED AUTHOR AUTHOR'S ORGANIZ ATION 05/05/2025 [facility] Source Comments (unrecognize d section and content) In the event this informatio n is protected by the Federal Confidentiality of Alcohol and Drug Abuse Patient Records regulations: The Federal rules restrict any use of the information to criminally investigate or prosecute any alcohol or drug abuse patient.[facility] Reason for Visit (unrecogniz ed section and content) Reason Comments Abdominal Pain Care Teams (unrecognized sec tion and content) Team Status: Inactive Member Role Status Dates Services [facility] Senior Primary Care Provider ZAMZAM BishopC Attending Provide r Active Team Status: Inactive Member Role Status Dates Services [facility] Primary Care Provider Active MILY Taylor Attending Provide r Active Team Status: Inactive Member Role Status Dates Services [facility] Primary Care Provider Active Brennen Britt MD Attending Provider Active Team Status: Inactive Member Role Status Dates Services [facility] Primary Care Provider Active Art Bianchi , DO Emergency Provider Active Team Status: Inactive Member Role Status Dates Services [facility] Primary Care Provider Active Ravi Arguello , DO Emergency Provider Active Team Status: Inactive Member Role Status [facility] Services [facility] Primary Care Provider Active Ender Donovan , DO Emergency Provider Active Team Status: Inactive Member Role Status [facility] Primary Care Provider Active Gilson Castro DO Emergency Provider Active Team Status: Active Member Role Status [facility] Primary Care Provider Ac tive Team Status: Inactive Member Role Status [facility] Primary Care Provider Ac tive Joss Rivera APRN Emergency Provider Active Team Status: Inactive Member Role Status [facility] Primary Care Provider Ac latesha Fry Jr, MD Emergency Provider Active Team Status: Inactive Member Role Status [facility] Primary Care Provider Ac latesha Castro , DO Emergency Provider Active Team Status: Active Member Role Status [facility] Primary Care Provider Ac latesha Castro , DO Emergency Provider Active Gregorio Carey , DO Admit Provider, Attending Pr ovider Active Team Status: Inactive Member Role Status Dates Services [facility] Primary Care Provider Ac latesha Castro , DO Emergency Provider Active Gregoriopierce Carey , DO Admit Provider, Attending Pr ovider Active Team Status: Inactive Member Role Status Dates Services [facility] Primary Care Provider Ac latesha Arguello , DO Emergency Provider Active Team Status: Inactive Member Role Status Dates Art Bianchi , DO Emergency Provider Active Services [facility] Primary Care Provider Ac tive Team Status: Inactive Member Role Status Dates Services [facility] Primary Care Provider Ac latesha Bolanos DO Emergency Provider Active Team Status: Inactive Member Role Status Dates Services [facility] Primary Care Provider Ac lulve Art Bianchi , DO Emergency Provider Active Team Status: Inactive Member Role Status Dates Services [facility] Primary Care Provider Active Corey Newberry MD Emergency Provider Active Team Status: Active Member Role Status [facility] Services [facility] Primary Care Provider Active Team Status: Inactive Member Role Status Dates [facility] Primary Care Provider Active Federico Randolph DO Emergency Provider Active Team Status: Active Member Role Status D[facility] Primary Care Provider Active Rd Brown PA-C Emergency Provider Active Eliana Bautista MD Admit Provider, Attending Provider Active Team Status: Inactive Member Role Status Dates Services [facility] Primary Care Provider Active Rd Brown PA-C Emergency Provider Active Eliana Bautista MD Admit Provider, Attending Provider Active Team Status: Inactive Member Role Status Dates Services [facility] Primary Care Provider Active Colten Miller MD Attending Provider Active Team Status: Inactive Member Role Status Dates Services [facility] Primary Care Provider Active Start: March 18, 2024 End: March 19, 2024 Femi Benitez MD Emergency Provider Active Star t: March 18, 2024 End: March 19, 2024 Team Status: Inactive Member Role Status Dates Services [facility] Primary Care Provider Active Start: August 03, 2024 End: August 04, 2024 Ania Watson MD Emergency Provider Active Start: August 03, 2024 End: August 04, 2024 Team Status: Active Member Role Status Dates Services [facility] Primary Care Provider Active Start: October 28, 2024 Cesar Mcdonald DO Attending Provider Active Sta rt: October 28, 2024 Team Status: Inactive Member Role Status Dates Services [facility] Primary Care Provider Active Start: October 28, 2024 End: October 29, 2024 Rd Brown PA-C Emergency Provider Active Start: October 28, 2024 End: October 29, 2024 Team Status: Inactive Member Role Status Dates Makayla Monk DO Attending Provider Active Sta rt: January 23, 2025 End: January 23, 2025 Team Status: Inactive Member Role Status Jasmeet Dahl MD Attending Provider Active Sta rt: May 04, 2025 End: May 04, 2025 Goals (unrecognized section and content) Goals may be documented in a n alternate sectionNo InformationNo InformationNo Information No data available for this section No data available for this sectionGoals may be documented in an alternate section No data available for this sectionGoals may be documented in an alternate section No data available for this sectionGoals may be documented in an alternate sectionGoals may be documented in an alternate [...] BE BASED ON THE PRIMARY CLINICAL RECORDS. [facility]. provides no warranty or guarantee of the accuracy or completeness of information in this document.
--- NOTE | 2025-05-06 06:36 | ED_ITS ---
HPI - Abdominal Pain General Chief Complaint: Abdominal Pain Stated Complaint: NAUSEA, VOMITING, ABDOMINAL PAIN Time Seen by Provider: 05/06/25 06:24 Source: patient Mode of arrival: walk-in Limitations: no limitations History of Present Illness HPI narrative: history of Pott's disease and cyclical vomiting. History of marijuana use. Presents complaining of recurrent vomiting for the past 5 days. Recent admission for vomiting. Denies diarrhea. Abdomen is sore. No urinary or respiratory symptoms. Denies diarrhea. States not Related Data Previous Rx's ?Medication ?Instructions ?Recorded cefdinir 300 mg capsule 300 mg PO Q12H 5 days #10 ca ps 05/04/25 ondansetron HCl 4 mg tablet 4 mg PO Q8H PRN nausea and 05/04/25 vomiting 3 days #10 tabs promethazine 25 mg tablet 12.5 mg (1/2 x 25 mg) PO Q6H PRN 05/04/25 nausea and vomiting #10 tabs Allergies Allergy/AdvReac Type Severity Reaction Status Date / Time metoclopramide (From Reglan) AdvReac Intermediate facial Verified 05/01/25 20:49 drooping Review of Systems ROS Status of ROS 10 or more systems reviewed and unremark able except as noted in history and below [facility] Medical History (Updated 05/06/25 @ 06:43 by Drew Steinberg MD) Marijuana use ?F12.90 - Cannabis use, unspecified, uncomplicated (ICD-10) Asthma ?J45.909 - Unspecified asthma, uncomplicated (ICD-10) Leukocytosis ?D72.829 - Elevated white blood cell count, unspecified (ICD-10) Bipolar 1 disorder ?F31.9 - Bipolar disorder, unspecified (ICD-10) Migraine ?G43.909 - Migraine, unspecified, not intractable, without status migrainosus (ICD-10) POTS (postural orthostatic tachycardia syndrome) ?G90.A - Postural orthostatic tachycardia syndrome [POTS] (ICD-10) Cyclic vomiting syndrome ?R11.15 - Cyclical vomiting syndrome unrelated to migraine (ICD-10) Cyclic vomiting syndrome ?R11.15 - Cyclical vomiting syndrome unrelated to migraine (ICD-10) Fall ?W19.XXXA - Unspecified fall, initial encounter (ICD-10) Fracture of tibial plateau ?S82.143A - Displaced bicondylar fracture of unspecified tibia, initial encounter for closed fracture (ICD-10) Surgical History History of appendectomy ?Z90.49 - Acquired absence of other specified parts of digestive tract (ICD- 10) Family History Father Family history of stroke Family history of diabetes mellitus Family history of cancer Family history of hypertension Family history of CHF (congestive heart failure) Grandfather Family history of stroke Grandmother Family history of myocardial infarction Mother Family history of diabetes mellitus Family history of cancer Social History (Updated 05/03/25 @ 14:23 by Emili Benitez) Within the past year, how often did you have a drink containing alcohol: never Score interpretation: A score less than 3 is consistent with normal alcohol consumption. Smoking status: Current every day smoker Non-prescribed substance use: cannabis (any form) Previous occupational history: [employer] Highest level of school completed/degree received: high school graduate Little interest or pleasure in doing things: not at all Feeling down, depressed, or hopeless: not at all Feel stressed/tense/nervous/anxious/difficulty sleeping: not at all Do you think of yourself as: straight/heterosexual Gender Identity: female Exam Constitutional Vital Signs, click to edit/add: Last Vital Signs Temp 98.5 F 05/06/25 06:08 Pulse 53 L 05/06/25 06:08 Resp 18 05/06/25 06:08 BP 144/98 H 05/06/25 06:08 Pulse Ox 99 05/06/25 06:08 O2 Del Method Room Air 05/06/25 06:08 Common normals: no apparent distress, average body habitus, oriented x3, no limitations, healthy appearing, alert and well nourished [facility] Common normals: normocephalic and head/scalp atraumatic Eye Common normals: PERRL, EOMs intact bilaterally and conjunctivae normal Respiratory Common normals: normal respiratory effort, no retractions, no use of accessory muscles and clear to auscultation bilaterally Cardio Common normals: regular rate, regular rhythm and S1 normal heart sound GI Common normals: Normal to inspection, nondistended, normoactive bowel sounds present, soft to palpation and non-tender Extremity Common normals: normal to inspection and full ROM Neuro Common normals: oriented x3, CN's II-XII intact bilaterally, moves all extremities and no focal motor deficits Psych Appearance: grossly normal Course Vital Signs Vital signs: Vital Signs Temperature 98.5 F 05/06/25 06:08 Pulse Rate 53 L 05/06/25 06:08 Respiratory Rate 18 05/06/25 06:08 Blood Pressure 144/98 H 05/06/25 06:08 Pulse Oximetry 99 05/06/25 06:08 Oxygen Delivery Method Room Air 05/06/25 06:08 Temperature 98.5 F 05/06/25 06:08 Pulse Rate 53 L 05/06/25 06:08 Respiratory Rate 18 05/06/25 06:08 Blood Pressure 144/98 H 05/06/25 06:08 Pulse Oximetry 99 05/06/25 06:08 Oxygen Delivery Method Room Air 05/06/25 06:08 MDM - Abdominal Pain MDM Narrative Medical decision making narrative: Patient states she has been vomiting for last 5 days. History of cyclical vomiting and Dangelo. No hematemesis . Has been seen several times in the ED with similar presentation and also admitted to the hospital. labs , IV hydration and antiemetics ordered. Care transferred to oncoming physician at change of shift Discharge Plan Discharge Patient Disposition: Still a Patient
--- NOTE | 2025-05-06 06:44 | XR_ITS ---
[facility] [place] [id number] Patient Name: PILI SEGURA MRN: [id number] date: 2005 Sex: F Assigned Patient Location: ED.MAIN Current Patient Location: ED.MAIN Accession/Order Number: [id number] Exam Date: 05/06/2025 07:38 Report Date: 05/06/2025 07:40 At the request of: EDER MARIEE MD Procedure: XR acute abdomen series Acute abdominal series COMPARISON: 01/17/2025 HISTORY: Vomiting for 5 days THORAX: Lung bases unremarkable. FREE AIR: Supine position limits assessment BOWEL: No gaseous intestinal distention. STOOL: Mild burden of stool RENAL STONES: No significant stones present. VASCULAR CALCIFICATIONS: Unremarkable SOFT TISSUE: Unremarkable BONES: Benign sclerotic lesions. Unchanged. POSTSURGICAL CHANGES: None XR/XR acute abdomen series IMPRESSION: No significant findings. Impression dictated by: Floyd Goldsmith M.D. 05/06/2025 7:40 AM Dictation Location: [place] [address] Electronically authenticated by: [id number] Y Date: 05/06/2025 07:40
[2025-05-06] MEDS: 0.9 % SODIUM CHLORIDE 1,000 ML 999 ML IV (07:02)
[2025-05-06] MEDS: ONDANSETRON PF 4 MG/2 ML VIAL IV (07:03)
[2025-05-06 07:07] LABS: Basophils Percent Auto 0.2 % (0.2-2.0); Eosinophils Percent Auto 0.4 % (0.9-7.0); Hematocrit 42.1 % (36.0-48.0); Hemoglobin 14.6 g/dL (12.0-16.0); Immature Granulocytes Abs Auto 0.04 10^3/uL (0.00-0.03); Immature Granulocytes Pct Auto 0.4 % (0.0-0.5); Lymphocytes Absolute Auto 1.5 10^3/uL (1.2-3.8); Lymphocytes Percent Auto 15.8 % (20.5-60.0); Mean Corpuscular HGB Conc 34.7 g/dL (29.9-35.2); Mean Corpuscular Hemoglobin 29.1 pg (26.7-34.0); Mean Platelet Volume 9.9 fL (9.5-13.5); Monocytes Absolute Auto 0.8 10^3/uL (0.3-0.8); Monocytes Percent Auto 8.2 % (1.7-12.0); Neutrophils Absolute Auto 6.9 10^3/uL (1.4-6.5); Platelet Count 297 10^3/uL (150-450); Red Blood Count 5.01 10^6/uL (4.20-5.40); Red Cell Distribution Width 12.1 % (11.0-15.0); White Blood Count 9.2 10^3/uL (4.0-11.0)
[2025-05-06 07:28] LABS: Alanine Aminotransferase 48 U/L (14-59); Albumin Globulin Ratio 1.2; Albumin Level 4.4 g/dL (3.4-5.0); Alkaline Phosphatase 71 U/L (46-116); Anion Gap 18.6; Aspartate Amino Transferase 21 U/L (15-37); BUN Creatinine Ratio 22.1; Calcium 9.7 mg/dL (8.5-10.1); Carbon Dioxide 27.2 mmol/L (21.0-32.0); Chloride 98 mmol/L (98-107); Estimated GFR (African America >60 (>=60 mL/min/1.73m^2); Estimated GFR (Non-African Ame >60 (>=60 mL/min/1.73m^2); Globulin 3.7 g/dL; Glucose 104 mg/dL (74-106); Magnesium 2.4 mg/dL (1.8-2.4); Sodium 141 mmol/L (136-145); Total Protein 8.1 g/dL (6.4-8.2)
[2025-05-06 07:30] LABS: Lactate/Lactic Acid 1.2 mmol/L (0.4-2.0)
[2025-05-06 07:39] LABS: Potassium 2.8 mmol/L (3.5-5.1)
[2025-05-06] MEDS: PROCHLORPERAZINE 10 MG/2 ML VIAL IV (07:54)
[2025-05-06] MEDS: KETOROLAC TROMETHAMINE 30 MG/ML VIAL 15 MG IVP (07:54)
[2025-05-06] MEDS: FAMOTIDINE/PF 20 MG/2 ML VIAL IV (07:55)
[2025-05-06] MEDS: ACETAMINOPHEN 500 MG TABLET PO (07:55)
[2025-05-06 08:20] VITALS: BP 137/85; PULSE 56; O2SAT 98
[2025-05-06] MEDS: POTASSIUM CHLORIDE IN 0.9%NACL 1,000 ML 250 ML IV (08:57)
[2025-05-06] MEDS: POTASSIUM BICARBONATE/CIT 25 MEQ TABLET EFF 50 MEQ PO (08:58)
[2025-05-06 09:44] VITALS: BP 127/67; PULSE 73; O2SAT 98
[2025-05-06 10:57] VITALS: BP 123/69; PULSE 74; O2SAT 100
[2025-05-06 10:59] VITALS: BP 123/68; PULSE 73; O2SAT 100
[2025-05-06 11:15] LABS: Bilirubin Urine NEGATIVE (NEGATIVE); Blood Urine LARGE (NEGATIVE); Clarity Urine CLEAR (CLEAR); Color Urine LT. YELLOW (YELLOW); Glucose Urine UA NEGATIVE (NEGATIVE); Ketones Urine >=80 mg/dL (NEGATIVE); Leukocyte Esterase Urine NEGATIVE (NEGATIVE); Nitrite Urine NEGATIVE (NEGATIVE); Protein Urine NEGATIVE (NEG/TRACE); pH Urine 7.5 (5.0-9.0)
[2025-05-06 11:34] LABS: Bacteria Urine SMALL #/HPF (NONE SEEN); Mucus Urine TRACE (NONE SEEN); Squamous Epithelial Cell Urine FEW #/LPF (NONE/RARE)
[2025-05-06 11:35] LABS: Amorphous Sediment Urine MODERATE; Cast Seen? NONE SEEN #/LPF (NONE SEEN); WBC Urine 0-2 #/HPF (NONE SEEN)
[2025-05-06 11:37] LABS: Crystals Seen? Seen #/HPF (None Seen); Urine Culture Indicated YES-FRMC
--- NOTE | 2025-05-06 13:44 | PC.NURSE ---
Patient expresses that she is feeling much better and wants to go home. Father is her ride and he just got called into work. Dr. Molina aware and he advised to pull iV cath. Cath pulled, intact sheath. Pressure applied wtih cotton and tape. Told patient that Dr. Molina would be in in the next 10 minutes or so.
== END 2025-05-06 14:00 | disposition home or self-care (01) ==
PROVIDERS: Emergency Provider Internal Medicine; PCP Nurse Practitioner Family
DX: E86.0 Dehydration (principal); G90.A Postural orthostatic tachycardia syndrome [POTS]; Z90.49 Acquired absence of other specified parts of digestive tract; F17.200 Nicotine dependence, unspecified, uncomplicated; R11.15 Cyclical vomiting syndrome unrelated to migraine; K29.70 Gastritis, unspecified, without bleeding; E87.6 Hypokalemia; F12.188 Cannabis abuse with other cannabis-induced disorder
CPT/HCPCS: 36415; 74022; 80053; 81001; 83605; 83690; 83735; 85025; 87086; 96361; 96365; 96366; 96375; 99285; J0780; J1885; J2405; J3490

== ENCOUNTER 2025-06-07 19:04 | Emergency (ER) | payer OTHER, SELFPAY ==
--- OUTSIDE RECORDS SUMMARY | 2022-02-09 14:35 | XMS_ITS | Continuity of Care Document ---
Author Organization [facility] Address [address] [place] [address] Phone Care Team Providers Care Speech Therapist Early Intervention Name Role Phone Lacho [facility], Em Afshan Unavaila ble Allergies, Adverse Reactions, [...] High Risk Nutrit Couns For Control Of [place] Dis May Oral Hygiene Instruction OFFICE/OUTPATIENT VISIT, EST HEPB VACC PED/ADOL 3 DOSE IM HIB VACCINE, PRP-T, IM DTAP VACCINE, < 7 YRS, IM MMR VACCINE, SC Advance Directives Directive Yes / No Effective Date File Name No Information Encounters Encounter Description Practice Location Reason(s) For Visit Diagnoses Date Provider Providers Copied on Encounter [facility], [address] [place] [address], [id number], tel:[phone] [facility] No Information Lacho [facility] Em. [address] [place] [address], [id number], [place]. tel:[phone] [facility], [address] [place] [address], [id number], [place] tel:[phone] Dental Clinic [facility] [address] [place] [address], [id number], [place]. tel:[phone] [facility], [address] [place] [address], [id number], [place] tel:[phone] Dental Clinic filling (chief complaint) Encounter for screening for dental disorders [facility]. [address] [place] [address], [id number], [place]. tel:[phone] [facility], [address] [place] [address], [id number], tel:[phone] Dental Clinic Encounter for screening for dental disorders Shanti Holly. [address] [place], [place], [id number], [place]. tel:[phone] [facility], [address] [place], [place], [id number], [place] tel:[phone] Dental Clinic Dental New (chief complaint) Encounter for screening for dental disorders Shanti Holly. [address] [place], [place], [id number], [place]. tel:[phone] OFFICE/OUTPATI ENT VISIT, EST [facility], [address] [place], [place], [id number], [place] tel:[phone] [facility] No Information Albaro Barlow. [address] [place], [place], [id number], [place]. tel:[phone] Family History Family Member Type Diagnosis Age [...] well Payers Payer name Insurance type Covered libertarian ID Diandra gamezelvia(s) D Medicaid [facility] [id number] Social History Type Description Quantity Date Captured [...]
--- OUTSIDE RECORDS SUMMARY | 2025-05-22 05:00 | XMS_ITS ---
Author Organization [employer] es Address [address] [place] [address] Care Team Providers Care Engineer Technician Name Role Phone Modesta Lira Primary Care Provider Kelsey Espion Unavailable [phone] REASON FOR VISIT nexplanon removal Social History Sex Assigned At : Social History Observation Description Sex Assigned At Female Encounters Encounter Location Date Provider [address] [place] [address] 05/22/2025 Kelsey Espino Plan Of Treatment No Information Progress Notes * PILI SEGURA ADOB: [birth year] (20 yo F)Acc No.[id number]:05/22/2025 progress note Patient: PILI PENALOZA A Provider: Raf Espino :2005 A ge:20 Y S ex:Female Date:05/22/2025 Address:[facility] [facility] Pcp:Modesta Lira Subjective: * Chief Complaints: * 1 . Nexplanon removal. * Medical History: Objective: * Vitals: Assessment: Plan: * Treatment: Care Plan: * Problems: * Images: * Electronic signature of Kina Espino NP on 06/07/2025 at 07:20 PM EDT Sign off status: Pending * Provider: Raf Espino Date: 0 05/22/2025 Generated for Yang huffman/Marcos/Lorraine on: 0 06/07/2025 07:20 PM EDT
[2025-06-07 19:08] VITALS: BP 134/86; PULSE 68; TEMP 37; O2SAT 99; BMI 36.6
--- OUTSIDE RECORDS SUMMARY | 2025-06-07 19:20 | XMS_ITS | Patient Health Record ---
Author Organization [facility] Address [address] [place] [address] Care Team Providers Care Director Of Quality Improvement Name Role Phone Pankaj Modesta Primary Care Provider [phone] Kelsey Espino Unavailable [phone] Modesta Chand Unavailable [phone] Allergies Allergen (clinical drug ingredient) Drug/Non Drug Allergy documented on EMR Reaction Allergy Type Onset Date Status metoclopramide Reglan Facial Droop Drug Allergy Active Reason For Referral No Information Medications Medication SIG (Take, Route, Fr equency, Duration) Notes Start Date End Date Status Zofran 4 MG 1 tablet Orally twic e a day (bid) as needed (prn); Duration: 10 days PRN Active Promethazine HCl 25 MG 1 tablet as neede d Orally every 12 hrs prn Active traZODone HCl 100 MG 1/2 to 1 tablet at bedtime for sleep when needed Orally Once a day; Duration: 30 days 05/13/2025 Ac tive Immunizations Vaccine Route Administration Date Status Comme [...] History Observation Description Sex Assigned At Female Sexual Hx: Question Answer Notes Had sex in the last 12 months (vaginal, oral, or anal)? Yes with Men only Use protection? Yes How often? Most of the time Prevention Strategies discussed: Condoms Have you ever had an STD? No AUDIT-C (Standard) Question Answer Notes Did you have a drink containing alcohol in the p ast year? No Points 0 Interpretation Negative Tobacco Control (Standard) Question Answer Notes Tobacco use: Nonsmoker Problems Problem Type SNOMED Code ICD Code Onset Dates Problem Status W/U Status Risk Notes Problem Severe mixed bipolar I disorder without psychotic features (68212064) Bipolar disorder, current episode mixed, severe, without psychotic features (F31.63) Active confirmed Problem Moderate recurrent major depression (35746453) Major depressive disorder, recurrent, moderate (F33.1) Active confirmed Problem migraine (disorder) (88760153) Migraines (G43.909) Active confirmed Problem Vitamin D deficiency (48881721) Vitamin D deficiency (E55.9) Active confirmed Problem Pneumomediastinum (03701974) Pneumomediastinum (J98.2) Active confirmed Problem Difficulty sleeping (812508733) Sleep difficulties (G47.9) Active confirmed Problem Insomnia (584038273) Insomnia, unspecified type (G47.00) Active confirmed Problem Posttraumatic stress disorder (08185795) PTSD (post-traumatic stress disorder) (F43.10) Active confirmed Problem Intermenstrual bleeding - irregular (92370322) Menorrhagia with irregular cycle (N92.1) Active confirmed Problem History of psychiatric disorder (218358590) History of posttraumatic stress disorder (PTSD) (Z86.59) Active confirmed Problem Irregular periods (05520979) Irregular periods/menstrual cycles (N92.6) Active confirmed Problem Social anxiety disorder (24071585) Social anxiety disorder (F40.10) Active confirmed Problem Major depression, single episode (64252754) Depression, acute (F32.9) Active confirmed Problem Postural orthostatic tachycardia syndrome (disorder) (857352864) POTS (postural orthostatic tachycardia syndrome) (I49.8) Active confirmed Vital Signs Heart Rate 105 /min 05/22/2025 Temperature 98 degrees Fahrenheit 05/22/2025 Respiratory Rate 20 /min 05/22/2025 Oximetry 97 % 05/22/2025 Blood pressure diastolic 84 mm Hg 05/22/2025 Height 62.5 in 05/22/2025 Blood pressure systolic 124 mm Hg 05/22/2025 Weight 201 lbs 05/22/2025 BMI 36.17 kg/m2 05/22/2025 Encounters Encounter Location Date Provider Diagnosis [facility] [address] [place] [address] 08/07/[address] [facility] [address] [place] [address] 07/03/2024 Modesta Chand control counseling Z30.09 [facility] [address] [place] [address] 01/25/2025 Modesta Chand POTS (postural orthostatic tachycardia syndrome) I49.8 ; Nausea and vomiting, unspecified vomiting type R11.2 ; Migraines G43.909 ; Sleep difficulties G47.9 and Hyperkalemia E87.5 [facility] [address] [place] [address] 05/13/2025 Modesta Lira Insomnia, unspecified type G47.00 ; Hypokalemia E87.6 and Skin burn T30.[address] [address] 05/22/2025 Kelsey Espino Encounter for Nexplanon removal Z30.46 and control counseling Z30.9 Assessments Encounter Date Diagnosis (ICD Code) Assessment Notes Treatment Notes Treatment Clinical Notes Section Notes 05/22/2025 Encounter for Nexplanon removal (ICD-10 - Z30.46) Discussed risks of procedure with patient which included but are not limited to bleeding, infection, difficulty with removal, scarring and nerve damage. Informed consent was obtained and scanned into the chart.Patient was positioned supine with left arm flexed at the elbow and externally rotated so that her hand was underneath her head. The implant was palpated. The site was cleaned with bedadine swabs and anesthetized with 2 mL of 1% lidocaine with epi where the incision will be made. A longitudinal 2mm incision was made toward the elbow. The tip of the implant was pushed and popped out of the incision. It was then grasped with hemostats. A 4 cm long implant was removed in its entirety. The incision was closed with 2 steri strips and a sterile guaze and coband was applied to minimize bruising. Discussed that the pressure bandage could be removed in 12-24 hours and the steri strips in 2-3 days. The patient tolerated the procedure well without complications. Contraception is advised until conception is desired. Patient verbalized understanding. 05/22/2025 control counseling (ICD-10 - Z30.9) Discussed control options today in office. Pt declines and would like to use natural family planning at this time. 07/03/2024 control counseling (ICD-10 - Z30.09) Pt wants to get her nexplanon removed and will have her see resident to have this done. Pt will then return to see [employer]ER when ready to discuss further control vs [...] all of her days missed from the 18th through to today. 01/25/2025 Nausea and vomiting, [...] next few days or worsening of symptoms. 05/13/2025 Hypokalemia (ICD-10 - E87.6) CMP ordered and drawn today. Will call patient with abnormal results. Increase fluids slowly advance diet as tolerated. All questions and concerns addressed. 05/13/2025 Insomnia, unspecified type (ICD-10 - G47.00) May restart Trazadone for sleep. Continue to refrain from marijuana. All questions and concerns addressed. Follow up in 3 months. 05/13/2025 Skin burn (ICD-10 - T30.0) Avoid allowing hot water on back. Instructed to use aloe and a moisturizing cream. Follow up if develop purulent drainage or pain from the burned area. All quesitons and concerns addressed. 01/25/2025 Migraines (ICD-10 - G43.909) Pt reports headache and requests Toradol shot. Given to pt by MA. Alicia yousif. 01/25/2025 Sleep difficulties (ICD-10 - G47.9) Will [...] electrolytes and hydration/ electrolyte replacement. Pt VU. 05/13/2025 Other Body Mass Index: Care Instructions material was published Schedule with Debora Ortega NP for Nexplanon removal. Plan Of Treatment Pending Test Test Name Order Date Comprehensive Metabolic Panel 05/13/2025 Complete Blood Count Auto Diff 5 Insurance Providers Payer Name Payer Address Payer Phone Subscriber Number Group Number Insured Name Patient Relationship to Insured Coverage Start Date Coverage End Date [employer] [place] Medicaid [address] [place] [address] [id number] PILI SEGURA Self - patient is the insured 3 Wrap [facility] [employer] [address] [place] [address] [id number] COLTON, PILI Self - patient is the insured 3 [employer] [address] [place] [address] [id number] PILI SEGURA Self - patient is the insured 0 3 zMEDICAID CFC after [employer] [address] [place] [address] [id number] PILI SEGURA Self - patient is the insured 0 3 zDENTAL DQ [employer] 22 [address] [facility] [place] [address] [id number] PILI SEGURA Self - patient is the insured 1 3 zDental MEDICAID CFC after [employer] 22 [address] [place] [phone] [id number] PILI SEGURA Self - patient is the insured 1 3 zBH [employer] 22 [address] [place] [phone] [id number] PILI SEGURA Self - patient is the insured 3 3 zBH MEDICAID CFC after [employer] [address] [place] [phone] [id number] PILI SEGURA Self - patient is the insured 3 3 BH [employer] [place] [address] [place] [address] [phone] [id number] PILI SEGURA Self - patient is the insured 3 BH Wrap [employer] [address] [place] [address] [phone] [id number] PILI SEGURA Self - patient is the insured 3 Dental [employer] [place] [address] [place] [address] [id number] PILI SEGURA Self - patient is the insured 3 Dental Wrap [employer] [address] [place] [address] [id number] PILI SEGURA Self - patient is the [...] Date(Month/Year) Appendectomy EGD Hospitalization History Reason Date(Month/Year) see surgical VOMITING 2024 N/V 07/2022 POTS
--- NOTE | 2025-06-07 19:26 | ED.GENADUL1 ---
HPI HPI - General Adult General Chief complaint: Upper Respiratory Infection Stated complaint: SORE THROAT, RASH ON BILATERAL ARMS Time Seen by Provider: 06/07/25 19:14 Source: patient Mode of arrival: walk-in History of Present Illness HPI narrative: The patient is a 20-year-old female who presents to the emergency department today for evaluation concerns for sore throat and rash. She endorses for the past 3 to 4 days she has had a sore throat and mention she looked in her throat this morning and noticed there to be tonsillar exudates. She initially mention she noticed a rash starting on her forearms. She does endorse fevers. No abdominal pain or nausea/vomiting. No headaches, ear pain, or cough/cold symptoms. Related Data Previous Rx's ?Medication ?Instructions ?Recorded cefdinir 300 mg capsule 300 mg PO Q12H 5 days #10 caps 05/04/25 ondansetron HCl 4 mg tablet 4 mg PO Q8H PRN nausea and 05/04/25 vomiting 3 days #10 tabs promethazine 25 mg tablet 12.5 mg (1/2 x 25 mg) PO Q6H PRN 05/04/25 nausea and vomiting #10 tabs ondansetron 4 mg disintegrating 4 mg PO Q4H PRN nausea and 05/06/25 tablet vomiting 3 days #6 tabs promethazine 25 mg rectal 25 mg DE Q6H PRN nausea and 05/06/25 suppository vomiting #6 ea Allergies Allergy/AdvReac Type Severity Reaction Status Date / Time metoclopramide (From Reglan) AdvReac Intermediate facial Verified 05/01/25 20:49 drooping Opioid HPI Opioid Management Most Recent Opioid Data: Last Pain Scale 8 05/06/25, 07:55 Last ORT Total Score 5 05/03/25, 14:33 Last ORT Risk Category Moderate Risk 05/03/25, 14:33 Ur Phencyclidine Scrn, (NEGATIVE) Negative 05/04/25, 06:20 Review of Systems ROS Status of ROS 10 or more systems reviewed and unremarkable except as noted in history and below [facility] Medical History (Updated 06/07/25 @ 19:49 by Damien Cordova NP) Marijuana use ?F12.90 - Cannabis use, unspecified, uncomplicated (ICD-10) Asthma ?J45.909 - Unspecified asthma, uncomplicated (ICD-10) Leukocytosis ?D72.829 - Elevated white blood cell count, unspecified (ICD-10) Bipolar 1 disorder ?F31.9 - Bipolar disorder, unspecified (ICD-10) Migraine ?G43.909 - Migraine, unspecified, not intractable, without status migrainosus (ICD-10) POTS (postural orthostatic tachycardia syndrome) ?G90.A - Postural orthostatic tachycardia syndrome [POTS] (ICD-10) Cyclic vomiting syndrome ?R11.15 - Cyclical vomiting syndrome unrelated to migraine (ICD-10) Cyclic vomiting syndrome ?R11.15 - Cyclical vomiting syndrome unrelated to migraine (ICD-10) Fall ?W19.XXXA - Unspecified fall, initial encounter (ICD-10) Fracture of tibial plateau ?S82.143A - Displaced bicondylar fracture of unspecified tibia, initial encounter for closed fracture (ICD-10) Surgical History History of appendectomy ?Z90.49 - Acquired absence of other specified parts of digestive tract (ICD-10) Family History Father Family history of stroke Family history of diabetes mellitus Family history of cancer Family history of hypertension Family history of CHF (congestive heart failure) Grandfather Family history of stroke Grandmother Family history of myocardial infarction Mother Family history of diabetes mellitus Family history of cancer Social History (Updated 05/03/25 @ 14:23 by Emili Benitez) Within the past year, how often did you have a drink containing alcohol: never Score interpretation: A score less than 3 is consistent with normal alcohol consumption. Smoking status: Current every day smoker Non-prescribed substance use: cannabis (any form) Previous occupational history: [employer] Highest level of school completed/degree received: high school graduate Little interest or pleasure in doing things: not at all Feeling down, depressed, or hopeless: not at all Feel stressed/tense/nervous/anxious/difficulty sleeping: not at all Do you think of yourself as: straight/heterosexual Gender Identity: female Exam Narrative Exam Narrative: Constituational: Awake/ alert, no apparent distress, well hydrated HENMT: normocephalic, internal/external ears normal, moist oral mucous membranes, + B/L tonsillar exudates with +2/3 tonsils, uvula midline, no stridor, no trismus Eyes: EOMI and conjunctivae normal Neck: ROM intact, no lymphadenopathy, no meningeal signs Chest: inspection of chest normal Respiratory: Normal respiratory effort, clear to auscultation bilaterally Cardio: regular rate and regular rhythm GI: soft to palpation and non-tender Back: nontender MSK: ROM intact, +NVI Skin: + Mildly erythemic reticulated-like rash to the anterior aspect of B/L UE, no petechiae Neuro: no focal deficits Psych: mental status grossly normal Constitutional Vital Signs, click to edit/add: Last Vital Signs Temp 98.6 F 06/07/25 19:08 Pulse 68 06/07/25 19:08 Resp 18 06/07/25 19:08 BP 134/86 06/07/25 19:08 Pulse Ox 99 06/07/25 19:08 O2 Del Method Room Air 06/07/25 19:08 Course Vital Signs Vital signs: Vital Signs Temperature 98.6 F 06/07/25 19:08 Pulse Rate 68 06/07/25 19:08 Respiratory Rate 18 06/07/25 19:08 Blood Pressure 134/86 06/07/25 19:08 Pulse Oximetry 99 06/07/25 19:08 Oxygen Delivery Method Room Air 06/07/25 19:08 Temperature 98.6 F 06/07/25 19:08 Pulse Rate 68 06/07/25 19:08 Respiratory Rate 18 06/07/25 19:08 Blood Pressure 134/86 06/07/25 19:08 Pulse Oximetry 99 06/07/25 19:08 Oxygen Delivery Method Room Air 06/07/25 19:08 Medical Decision Making [facility] Narrative Medical decision making narrative: Patient is a nontoxic-appearing 20-year-old female who presented to the emergency department today for evaluation of concerns for a sore throat and a rash to her upper extremities. Initial examination vital signs overall stable with exception patient does have clinical evidence consistent with viral rash to her upper extremities. No evidence of abscess or cellulitis present. Additionally no concerning neurovascular motor findings on exam. Rapid strep is negative. Discussed this with the patient including recommendations for supportive care for viral pharyngitis. Advised on follow-up with patient's primary care provider for reevaluation. Discussed signs and symptoms of any worsening condition and when to consider reevaluation by the emergency department. Patient verbalized an understanding of this and is agreeable with the plan to be discharged home. Medical Records Medical records reviewed: Yes I reviewed the patient's medical records Lab Data Lab results reviewed: Yes I reviewed the patient's lab results Labs: Lab Results 06/07/25 Range/Units 19:13 Streptococcus Screen Negative Discharge Plan Discharge Chief Complaint: Upper Respiratory Infection Clinical Impression: Acute viral pharyngitis Patient Disposition: Home, Self-Care Mode of Transportation: Private Vehicle Prescriptions / Home Meds: No Action ondansetron HCl 4 mg tablet 4 mg PO Q8H PRN (Reason: nausea and vomiting) 3 Days Qty: 10 0RF promethazine 25 mg tablet 12.5 mg PO Q6H PRN (Reason: nausea and vomiting) Qty: 10 0RF Rx Instructions: ok to use if zofran does not work cefdinir 300 mg capsule 300 mg PO Q12H 5 Days Qty: 10 0RF promethazine 25 mg suppository 25 mg DE Q6H PRN (Reason: nausea and vomiting) Qty: 6 0RF ondansetron 4 mg tablet,disintegrating 4 mg PO Q4H PRN (Reason: nausea and vomiting) 3 Days Qty: 6 0RF Print Language: Greenlandic Instructions: Pharyngitis (ED) Additional Instructions: May take Tylenol or ibuprofen as needed for any pain. May gargle salt water or use throat lozenges such as Cepacol to help alleviate any pain. Follow-up with your primary care provider for reevaluation as discussed. Return to the ER with any new or worsening symptoms/concerns. Referrals: Physician,Non-Staff, MD [Primary Care Provider] - 1 week Discharge Date/Time: 06/07/25 20:21
--- OUTSIDE RECORDS SUMMARY | 2025-06-07 19:35 | XMS_ITS | CCD ---
Author Organization [facility] Care Team Providers Care Client Services Analyst Name Role Phone Calvin, Mere T [...] Nilay Unavailable Unavailable Unavailable Primary Care Provider [facility] Services Primary Care Provider DO Art Bianchi Emergency Provider Donovan, DO Ender J Emergency Provider Tugisselle, DO VoRavi M Emergency Provider Matthew DO Gilson Emergency Provider MILY Chand Attending Pr ovider MD Brennen Britt Attending Provider [facility] Prov ider [facility] Primary Care Provider FRANKY Rivera Emergency Provider MD Colten Fry Jr Emergency Provider DO Matthew Gilson Emergency Provider Aurelio, DO Gregorio Admit Provider Aurelio DO Gregorio Attending Provider [facility] Prov ider FRANKY Rivera Emergency Provider MD Colten Fry Jr Emergency Provider Matthew DO Gilson Emergency Provider Aurelio DO Gregorio Admit Provider Aurelio, DO Gregorio Attending Provider MILY Chand Attending Pr ovider Tugisselle, DO Rodrigues M Emergency Provider [facility] Prov ider FRANKY Rivera Emergency Provider MD Colten Fry Jr Emergency Provider DO Matthew Gilson Emergency Provider [phone] Aurelio, DO Gregorio Admit Provider Aurelio DO Gregorio Attending Provider MILY Chand Attending Pr ovider DO Ravi Arguello Emergency Provider DO Art Bianchi Emergency Provider DO Robert Bolanos Emergency Provider [phone] [facility] Primary Care Provider MD Dixon Newberry Emergency Provider [phone] [facility] Primary Care Prov ider DO Federico Randolph Emergency Provider KATE Damian Emergency Provider [phone] MD Eliana Bautista Admit Provider [phone] MD Eliana Bautista Attending Provider [phone] SANDRO, DR VU Primary Care Unavailable DALIA ., AUSTIN Admitting Unavailable DALIA ., AUSTIN Attending Unavailable DALIA ., AUSTIN Consulting Unavailable DIAB ., IRWIN Admitting Unavailable ETHAN ., IRWIN Attending Unavailable SANDRO, DR VU Primary Care Unavailable KIA ARVIZU Consulting Unavailable ETHAN ., IRWIN Consulting Unavailable Colten Miller Unavailable [facility] Primary Care Provider MILY Chand Attending Pr ovider MD Colten Miller Attending Provider [facility] Primary Care Provider DO Ravi Arguello Emergency Provider MODESTA ARCHIBALD Primary Care Physician [facility] Primary Care Provider MD Femi Benitez Emergency Provider [phone] Cresencio Abel Attending Unavailable MODESTA ARCHIBALD Primary Care Unavailable MODESTA ARCHIBALD Primary Care Unavailable August Bermudez Attending Unavailable MODESTA ARCHIBALD Primary Care Unavailable DO Isaak Francis Attending Unavailable [facility] Primary Care Provider MD Ania Watson Emergency Provider MODESTA ARCHIBALD Primary Care Unavailable August Bermudez Attending Unavailable Cresencio Abel Attending Unavailable MODESTA ARCHIBALD Primary Care Unavailable MODESTA CHAND Primary Care Physician August Bermudez Attending Unavailable August Bermudez Attending Unavailable August Bermudez Attending Unavailable [facility] Primary Care Provider Rd Brown PA-C Emergency Provider [phone] Makayla Monk DO Attending Provider [phone] Jasmeet Dahl MD Attending Provider Drew Steinberg MD Attending Provider [phone] Jasmeet Dahl Admitting Unavailable Jasmeet Dahl Attending Unavailable Drew Steinberg Admitting Unavailable Drew Steinberg Attending Unavailable [facility] Primary Care Unavaila Ania Paz Admitting Unavailable Ania Watson Attending Unavailable Rd Brown Admitting Unavailable Rd Brown Attending Unavailable [facility] Primary Care Unavaila Makayla Verma Admitting Unavailable Makayla Monk Attending Unavailable Allergies Allergy Classification Reported Allergen(s) Allergy Type Date of Onset Reaction(s) Facility (15 sources) Haloperidol; Translations: [Haloperidol] Drug Allergy 3 Unknown Reaction, facial droop [facility] (17 sources) Metoclopramide; Translations: [Metoclopramide] Drug Allergy 3 Unknown (qualifier value) [facility] (5 sources) Haloperidol; Translations: [Haldol] Drug Allergy [facility] (5 sources) Iothalamate; Translations: [Reglan] Drug Allergy [facility] Medications Current Medications Medication Drug Class(es) Dates Sig (Normalized) Sig (Original) acetaminophen 325 mg / HYDROcodone bitartrate 5 mg oral tablet (20 sources) Opioid Agonist Start: 03-13-2024 End: 03-16-2024 Talcott 325 mg-5 mg oral tablet 1 tab(s), Oral, q6hr for pain for 3 day(s), 7 tab(s), Refill(s) 0, [id number], 160, cm, 03/13/24 17:38:00 EDT, Height/Length Dosing, [...] six hours as needed for pain Hydrocodone-Acetaminophen (Talcott) 5-325 mg tablet Discontinued 1 TAB PO [...] twice daily as needed for pain Hydrocodone-Acetaminophen (Talcott) 5-325 mg tablet Discontinued 1 TAB PO [...] mg capsule Active 500 MG PO Q8H 30 October 28, 2024 1:00am Start: 05-24-2023 take 1 [...] day(s), # 21 tab(s), Refills(s) 0, [id number], cm, 01/16/25 17:56:00 EST, Height/Length [...] day(s), # 9 tab(s), Refills(s) 0, Pharmacy: [id number], 160, cm, 03/13/24 17:38:00 [...] food, # 20 tab(s), Refills(s) 0, Pharmacy: [facility]/pharmacy #[id number], 157, cm, 01/16/25 17:56:00 [...] as needed for nausea and vomiting 9 September 04, 2018 12:00am October 16, [...] extended release Discontinued 10 MEQ PO Daily 09 06August [...] nausea/vomiting, # 10 tab(s), Refills(s) 0, Pharmacy: [facility]/pharmacy #[id number], 157, cm, 01/16/25 17:56:00 EST, Height/Length Dosing, 95, kg, 01/16/25 17:56:00 EST, Weight Dosing Start Date: 01/16/25 Status: Ordered Start: 07-30-2024 take 1 tablet by kathe th every eight hours as needed for nausea promethazine 12.5 mg oral tablet 12.5 mg = 1 tab(s), Oral, q8hr, PRN as needed for nausea/vomiting, second line, # 10 tab(s), Refills(s) 0, Pharmacy: [facility][id number], 157, cm, 07/30/24 19:37:00 EDT, Height/Length Dosing, 96.1, kg, 07/30/24 19:37:00 EDT, Weight Dosing Start Date: 07/30/24 Status: Ordered Start: 07-30-2024 take 12.5 mg rectal route every eight hours as needed for nausea Phenergan 12.5 mg Supp 12.5 mg = 1 supp, Rectal, q8hr, PRN as needed for nausea/vomiting, 3rd line, # 6 EA, Refills(s) 0, [id number] 157, cm, 07/30/24 19:37:00 EDT, [...] 25 mg supposito ry Discontinued 25 MG WA Q6H as needed for Nausea January 02, [...] 25 mg supposito ry Discontinued 25 MG WA Q6H as needed for nausea and vomiting [...] 12.5 mg supposi tory Discontinued 12.5 MG WA Once September 30, 2021 12:00am October 08, 2021 9:34pm Start: 09-30-2021 End: 10-08-2021 Promethazine Discontinued 12 .5 MG WA Once September 30, 2021 12:00am October 08, [...] (Phenergan) 25 mg suppository Discontinued 25 MG WA Q4H as needed for nausea and vomiting [...] (Phenergan) 25 mg suppository Discontinued 25 MG WA Q8H as needed for nausea and vomiting February 13, 2018 12:00am March 13, 2018 10:44pm Start: 01-03-2018 End: 10-16-2018 Promethazine 25 mg supposito ry Discontinued 25 MG WA Q6H as needed for Nausea April 23, [...] Nausea/Vomiting, # 16 tab(s), Refills(s) 0, Pharmacy: [id number], 157, cm, 07/30/24 19:37:00 EDT, Height/Length Dosing, 96.1, kg, 07/30/24 19:37:00 EDT, Weight Dosing Start Date: 07/30/24 Status: Ordered Completed/Discontinued Medications Medication Drug Class(es) Dates Sig (Normalized) Sig (Original) acetaminophen 325 mg / oxyCODONE hydrochloride 5 mg oral tablet (14 sources) Opioid Agonist Start: 05-25-2023 End: 10-28-2024 [...] every 4-6 hrs for 5 days SANTO: [id number] Apr, Active take 1 tablet by kathe th every six hours oxyCODONE-Acetaminophen 5-325 MG 1 tablet as needed Orally every 6 hrs Active [id number] actuat albuterol 0.09 mg/actuat metered dose [...] Albuterol Sulfate 90 mcg/actuation Hfa Aerosol Inhaler (3 sources) Start: 12-21-2017 End: 07-19-2021 take 1 [...] 250 mg tablet Discontinued 0 PO .COMPLEX May 29, 2021 12:00am July 19, 2021 [...] / neomycin 3.5 mg/ml / polymyxin b [id number] unt/ml otic suspension (20 sources) Aminoglycoside Antibacterial, Polymyxin-class Antibacterial, Corticosteroid Start: 10-31-2017 End: 12-21-2017 Mptmadzg-Kzzunytzj-Yh 3.5-10,000-1 mg/mL-unit/mL-% drops,suspension Discontinued 3 DROPS OTIC [...] 2018 1:00am January 12, 2021 1:34pm Magnesium (17 sources) Start: 10-03-2017 End: 01-12-2021 take 2 [...] as needed for nausea and vomiting 5 3 August 20, 2022 12:00am August 22, 2022 2:48pm mirtazapine 15 mg oral tablet (20 sources) Start: 12-11-19 End: 01-12-20 take 1 tablet by mouth once daily Mirtazapine 15 mg tablet Discontinued 15 MG PO Daily December 11, 2019 1:00am January 12, 2021 1:35pm Cbrfmipn-Cgj-Rdnscec Fumarate (Multi Vitamin) 9 mg iron/15 mL Liquid (17 sources) Start: 09-30-20 End: 07-19-20 take 1 tablet by mouth once daily Nhyvhlyu-Dek-Vlsqhqg Fumarate (Multi Vitamin) 9 mg iron/15 mL Liquid Discontinued 1 TAB PO Daily September 29, 2019 11:00pm July 19, 2021 1:07pm Start: 09-30-2019 End: 07-19-2021 take 1 tablet by mouth once daily Bstezbro-Hhw-Yfekhuz Fumarate (Multi Vitamin) 9 mg iron/15 mL [...] End: 03-13-2018 Oxymetazoline (Afrin (Oxymetazoline)) 0.05 % [place],Non-Aerosol Discontinued 2 SPRAY INTRANASAL Q12H December 23, [...] 2022 11:25am administer with food or milk Prenat.Vits,Noe,Wkd-Uxqg-Kbp ic (14 sources) Start: 02-06-2022 End: 03-08-2022 take 1 tablet by mouth once daily Prenat.Vits,Noe,Bxb-Lvym-Wngct Discontinued 1 TAB PO Daily 60 February 06, 2022 12:00am March 08, 2022 7:15pm Start: 02-06-2022 End: 03-08-2022 take 1 tablet by mouth once daily Prenat.Vits,Noe,Vki-Yfmk-Uspks Discontin ued 1 TAB PO Daily 60 February 06, 2022 1:00am March 08, 2022 8:15pm Prenat.Vits,Noe,Awo-Gdhz-Dai ic tablet (3 sources) Start: 02-06-2022 End: 03-08-2022 take 1 tablet by mouth once daily Prenat.Vits,Noe,Vgy-Bnak-Lonno tablet Discontinued 1 TAB PO Daily 60 February 06, 2022 1:00am March 08, 2022 8:15pm Start: 02-06-2022 End: 03-08-2022 take 1 tablet by mouth once daily Prenat.Vits,Noe,Tsn-Slqv-Mptue tablet Discontinued 1 TAB PO Daily 60 February 06, 2022 12:00am March 08, 2022 7:15pm Vit No.517-Womw-Kcpgb ( Vitamin) 27 mg iron- 800 mcg tablet (17 sources) Start: 06-08-2022 End: 08-18-2022 take 1 tablet by mouth once daily Vit No.224-Diip-Zgiog ( Vitamin) 27 mg iron- 800 mcg tablet Discontinued 1 TAB PO Daily June 07, 2022 11:00pm August 18, 2022 11:33am Start: 06-08-2022 End: 08-18-2022 take 1 tablet by mouth once daily Vit No.843-Btfg-Qcrga ( Vitamin) 27 mg iron- 800 mcg tablet Discontinued 1 TAB PO Daily June 08, 2022 12:00am August 18, 2022 12:33pm Start: 06-08-2022 take 1 tablet by kathe th once daily Vit No.123-Myal-Msiwg ( Vitamin) 27 mg iron- 800 mcg [...] daily as needed for abdominal discomfort 14 7 December 31, 2022 2:04pm January [...] Start: 04-13-2018 KENALOG - 10 m g 17 Mar, 2018 60 mg (20 sources) Start: 06-08-2022 End: [...] accident, initial encounter] 11-19-2019 Episodic Esophageal disorders (14 sources) Beverley-Cotton tear; 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] [...] 10-05-2017 Episodic Genitourinary symptoms and ill-defined conditions (17 sources) Dysuria; Translations: [Dysuria] 06-02-2019 Episodic Headache, [...] Onset: 4 02-09-2022 Episodic Other complications of (4 sources) Vomiting of , unspecified; Translations: [Nausea and vomiting during ] 02-09-2022 Episodic Other connective tissue disease (13 sources) Muscle pain; Translations: [Myalgia, unspecified site] 12-31-2022 Episodic Other disorders of stomach and duodenum (19 sources) Nonulcer dyspepsia; 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 Normal [facility] Comment on above: Performed By: #### C UU #### [place] [id number] [facility] Urine Cultureon 05-04-2025 Bacteria identified Cx Nom (U) <9,000 colonies/ml mixed bacterial skin contaminants 2 Days PERFORMED BY: [place] [address] PATHOLOGIST PLASTICS SEASONER OPERATOR FRAN NUNEZ M.D. Normal [facility] Comment on above: Performed By: #### C UU #### [facility] [address] [place] [address] Urine cultureOrdered By: Phi Dahl on 05-04-2025 Bacteria identified Cx Nom (U) Urine culture [facility] Urine Cultureon 01-23-2025 Bacteria identified Cx Nom (U) >100,000 colonies/ml mixed bacterial skin contaminants 2 Days PERFORMED BY: [place] [address] PATHOLOGIST PLASTICS SEASONER OPERATOR IDANIA GODOY M.D. Normal [facility] Comment on above: Performed By: #### C UU #### [address] Abdomen/Pelvis w/ Contras ton 01-17-2025 CT [...] MD Transcribed by: KIRA Technologist: FABIÁN [facility] CT Chest w/ Contraston 01-17 CT Chest [...] Anselmo Dolan MD Transcribed by: KIRA Technologist: [facility] CT Head or Brain w/o Contras [...] Anselmo Dolan MD Transcribed by: KIRA Technologist: [facility] CT Spine Cervical w/o Contra ston [...] soft tissue abnormalities identified. Ordering Provider: Rashaad Albrecth FINAL REPORT Dictated: 01/17/2025 9:08 am Anselmo Dolan MD Signed (Electronic Signature): 01/17/2025 9:08 am Signed by: Anselmo Dolan MD Transcribed by: KIRA Technologist: FABIÁN [facility] ED Note-Physicianon 01-17-20 ED Note-Physician ED Note-Physician [...] and Complexity of Problems Differential Diagnosis: [] [facility] Data External documents reviewed: [] My [...] day(s), # 21 tab(s), Refills(s) 0, Pharmacy: [facility]/pharm[facility] #[id number], 157, cm, 01/16/25 17:56:00 [...] food, # 20 tab(s), Refills(s) 0, Pharmacy: [facility]/pharmacy #[id number], 157, cm, 01/16/25 17:56:00 EST, Height/Length Dosing, 95, kg, 01/16/25 17:56:00 EST, Weight Dosing promethazine, 12.5 mg = 0.5 tab(s), Tab, Oral, Once, Stop date 01/16/25 19:41:00 EST, STAT, Start date 01/16/25 19:41:00 EST, 01/16/25 19:41:00 EST promethazine, 12.5 mg = 1 tab(s), Oral, q6hr, PRN for nausea/vomiting, # 10 tab(s), Refills(s) 0, Pharmacy: [facility]/pharmacy #[id number], 157, cm, 01/16/25 17:56:00 EST, Height/Length Dosing, 95, kg, 01/16/25 17:56:00 EST, Weight Dosing ABO/Rh ABO/Rh History Check Antibody Screen Basic Metabolic Panel Beta hCG Qual Blood Bank ID# CBC w/ Auto Diff CT Abdomen/Pelvis w/ Contrast CT Chest w/ Contrast CT Head or Brain w/o Cont (more content not included)... [facility] Comment on above: Result Comment: Elec tronically Signed By: Rashaad Albrecht PA-C\.br\Date and Time Signed: 01/16/25 22:30 EST\.br\Electronically Co-Signed By: August Bermudez M.D.\.br\Date and Time Co-Signed: 01/17/25 08:51 EST [...] Araya DO Transcribed by: KIRA Technologist: DES [facility] XR Knee Complete 4+ Views Leidy tubbs [...] Carlos Araya DO Transcribed by: KIRA Technologist: AMD Normal [facility] ABO/Rhon 01-16-2025 ABO/Rh Positive Invalid Interpretation Code [facility] Comment on above: Performed By: #### 2 [id number] #### [facility] [address] [place] [address] ABO/Rh History Checkon 01-16 ABO/Rh History Check Verified Hx Blood Type Normal [facility] Comment on above: Performed By: #### 1 [id number] #### [facility] [address] [place] [address] ABSCon 01-16-2025 ABSC Gel Interp Negative Normal [facility] Comment on above: Performed By: #### 1 [id number] #### [facility] [address] [place] [address] B hCG Qualon 01-16-2025 Beta HCG ( test) Ql Negative Normal [facility] Comment on above: Performed By: #### 2 [id number] #### [facility] [address] [place] [address] BLOOD BANKOrdered By: Ti Mccain on 01-16-2025 ABO/Rh Interp Positive Invalid Interpretation Code [facility] BB Subsection ABSC Gel Interp Negative (01/16/25 7:26 PM) Normal [facility] BB Subsection BMPon 01-16-2025 Anion gap [Moles/Vol] 20 mmol/L High 6-16 [facility] Comment on above: Performed By: #### 2 [id number] #### [facility] [address] [place] [address] Calcium [Mass/Vol] 10.9 mg/dL Normal 8.9-11.1 [facility] Comment on above: Performed By: #### 2 [id number] #### [facility] [address] [place] [address] Chloride [Moles/Vol] 101 mmol/L Normal 101-111 [facility] Comment on above: Performed By: #### 2 [id number] #### [facility] [address] [place] [address] CO2 [Moles/Vol] 22 mmol/L Normal 21-31 [facility] Comment on above: Performed By: #### 2 [id number] #### [facility] [address] [place] [address] Creatinine [Mass/Vol] 0.9 mg/dL Normal 0.5-1.3 [facility] Comment on above: Performed By: #### 2 [id number] #### [facility] [address] [place] [address] Glucose [Mass/Vol] 116 mg/dL Normal 55-199 [facility] Comment on above: Performed By: #### 2 [id number] #### [facility] [address] [place] [address] Potassium [Moles/Vol] 3.3 mmol/L Low 3.5-5.3 [facility] Comment on above: Performed By: #### 2 [id number] #### [facility] [address] [place] [address] Sodium [Moles/Vol] 140 mmol/L Normal 135-145 [facility] Comment on above: Performed By: #### 2 [id number] #### [facility] [address] [place] [address] Urea nitrogen [Mass/Vol] 23 mg/dL High 5-21 [facility] Comment on above: Performed By: #### 2 [id number] #### [facility] [address] [place] [address] Urea nitrogen/Creatinine [Mass ratio] 26 No Units High 10-20 [facility] Comment on above: Performed By: #### 2 [id number] #### [facility] [address] [place] [address] Blood Bank ID#on 01-16-2025 BBID# [id number] Invalid Interpretation Code [facility] Comment on above: Performed By: #### 1 [id number] #### [facility] [address] [place] [address] CBC w/ Auto Diffon 5 Basophils/100 WBC (Bld) 0.3 % Normal 0.0-2.0 [facility] Comment on above: Performed By: #### 2 [id number] #### [facility] [address] [place] [address] Basophils/Leukocytes Auto (Bld) [Pure # fraction] 0.0 E9/L Normal 0.0-0.2 [facility] Comment on above: Performed By: #### 2 [id number] #### [facility] [address] [place] [address] Eosinophils (Bld) [#/Vol] 0.0 E9/L Normal 0.0-0.5 [facility] Comment on above: Performed By: #### 2 [id number] #### [facility] [address] [place] [address] Eosinophils/100 WBC (Bld) 0.0 % Normal 0.0-8.0 [facility] Comment on above: Performed By: #### 2 [id number] #### [facility] [address] [place] [address] Erythrocyte distribution width (RBC) [Ratio] 13.7 % Normal 10.9-14.2 [facility] Comment on above: Performed By: #### 2 [id number] #### [facility] [address] [place] [address] Hematocrit (Bld) [Volume fraction] 46.9 % High 34.0-46.0 [facility] Comment on above: Performed By: #### 2 [id number] #### [facility] [address] [place] [address] Hemoglobin (Bld) [Mass/Vol] 16.0 g/dL Normal 12.0-16.0 [facility] Comment on above: Performed By: #### 2 [id number] #### [facility] [address] [place] [address] Lymphocytes (Bld) [#/Vol] 1.4 E9/L Normal 1.0-4.0 [facility] Comment on above: Performed By: #### 2 [id number] #### [facility] [address] [place] [address] Lymphocytes/100 WBC (Bld) 11.6 % Low 14.0-50.0 [facility] Comment on above: Performed By: #### 2 [id number] #### [facility] [address] [place] [address] MCH (RBC) [Entitic mass] 28.8 pg Normal 27.0-34.0 [facility] Comment on above: Performed By: #### 2 [id number] #### [facility] [address] [place] [address] MCHC (RBC) [Mass/Vol] 34.1 g/dL Normal 31.4-36.0 [facility] Comment on above: Performed By: #### 2 [id number] #### [facility] [address] [place] [address] MCV (RBC) [Entitic vol] 84.3 fL Normal 80.0-100.0 [facility] Comment on above: Performed By: #### 2 [id number] #### [facility] [address] [place] [address] Monocytes (Bld) [#/Vol] 0.6 E9/L Normal 0.2-1.0 [facility] Comment on above: Performed By: #### 2 [id number] #### [facility] [address] [place] [address] Neutrophils (Bld) [#/Vol] 10.0 E9/L High 2.0-7.5 [facility] Comment on above: Performed By: #### 2 [id number] #### [facility] [address] [place] [address] Neutrophils/100 WBC (Bld) 83.4 % High 36.0-75.0 [facility] Comment on above: Performed By: #### 2 [id number] #### [facility] [address] [place] [address] Platelet mean volume (Bld) [Entitic vol] 8.9 fL Normal 6.4-10.8 [facility] Comment on above: Performed By: #### 2 [id number] #### [facility] [address] [place] [address] Platelets (Bld) [#/Vol] 300.0 E9/L Normal 150.0-500. 0 [facility] Comment on above: Performed By: #### 2 [id number] #### [facility] [address] [place] [address] RBC (Bld) [#/Vol] 5.6 E12/L Normal 4.3-5.9 [facility] Comment on above: Performed By: #### 2 [id number] #### [facility] [address] [place] [address] WBC corrected for nucl RBC Auto (Bld) [#/Vol] 12.0 E9/L High 4.0-11.0 [facility] Comment on above: Performed By: #### 2 [id number] #### [facility] [address] [place] [address] CHEMISTRYOrdered By: SYSTEM SYSTEM on 01-16-2025 Albumin [...] 23.1 s Low 25.1 - 36.5 second(s) [facility] Auto Coag Comment on above: Interpretive Data: P leometer 15 days - 4 weeks 1 - [...] the same coagulation reagent and instrumentation as [facility]. Currently there are no coagulation studies available worldwide for children to 14 days, and no normal ranges. Heparin therapeutic range (represented by Anti-Factor Xa activity of 0.2 - 0.4 U/mL) corresponds to PTT of 56.6 - 109.0 sec. INR Coag (PPP) [Relative time] 1.10 {INR} Invalid Interpretation Code [facility] Auto Coag Comment on above: Interpretive Data: I NR results are specifically intended to assess patients stabilized on long-term Anticoagulation therapy suggested INR s Less Intensive Anticoagulation 2.0 3.0 Conventional Range 3.0 4.5 PT Coag (PPP) [Time] 12.3 s Normal 9.4 - 1 2.5 second(s) [facility] Auto Coag Comment on above: Interpretive Data: [...] the same coagulation reagent and instrumentation as [facility]. Currently there are no coagulation studies available worldwide for children to 14 days, and no normal ranges. ED Clinical Summaryon 2024 ED Clinical Summary ED Clinical Summary [address] [address] ED Clinical Summary Person Information Name: PILI [facility] Age: 19 Years : 2005 Sex: Female [...] 01/16/2025 20:36:16 01/16/2025 20:36:16 ADDRESS: [address] [facility] [id number] PHYS DOC NOTES: MEDICAL INFORMATION: Prescriptions Given: New Medications [facility]/pharmacy #[id number], [address], [place] [id number], [phone] cyclobenzaprine (cyclobenzaprine 5 mg Tab) 1 Tablets By Mouth 3 times a day for 7 Days. Refills: 0. Medications to Continue Taking That Have Changed [facility]/pharmacy #[id number], [address], [place] [id number], [phone] START: naproxen (naproxen 500 mg Tab) 1 [...] Contusion; Fall Prevention in the Home, Adult, Teup-lz-Cpay Follow up: With: Address: When: MODESTA NIKUNJ [address] [place] [phone] [facility] (1) In 3 days 2025 Comments: Call Dr for diagnosis based follow up DIAGNOSIS: Abdominal contusion; Fall down steps; Knee contusion Normal [facility] ED Patient Summaryon 025 ED Patient Summary ED Patient Summary [address] [address] Patient Discharge Instructions Person Information Name: PILI PARIKH Age: 19 Years Arrival Date: 01/16/2025 17:51:31 Discharge Diagnosis: Abdominal contusion; Fall down steps; Knee contusion Primary Care Physician: MODESTA CHAND CNP Provider Information Primary Provider: August Bermudez M.D. [employer] Professor:Rashaad Albrecht PA-C The exam and treatment you received in the Emergency Department were for an urgent problem and are not intended as complete care. It is important that you follow up with a doctor, nurse practitioner, or physician???s retail sales assistant for ongoing care. If your symptoms [...] Follow-up Instructions: With: Address: When: MODESTA CHAND [address] [place] [phone] [facility] (1) In 3 days 2025 Comments: Call Dr for diagnosis based follow up In the event that this physician does not participate in your insurance network, please consult with your insurance company to find a nearby participating provider. Patient Education Materials: RICE Therapy for Routine Care of Injuries; Contusion; Fall Prevention in the Home, Adult, Lqxs-tt-Vbyo A MESSAGE TO ALL PATIENTS REGARDING OPIOIDS PRESCRIPTION OPIOIDS: WHAT YOU NEED TO KNOW Prescription opioids can be used to help relieve aksynxxd-vr-dobcbh pain and are often prescribed following a [...] ??? Visit (more content not included)... Normal [facility] Ethanolon 01-16-2025 Ethanol Lvl <10 Normal <=11 [facility] Comment on above: Performed By: #### 2 [id number] #### [facility] [address] [place] [address] HEMATOLOGYOrdered By: SYSTEM SYSTEM on 01-16-2025 Basophils/100 [...] 01-16-2025 Albumin [Mass/Vol] 5.5 g/dL High 3.3-5.0 [facility] Comment on above: Performed By: #### 2 [id number] #### [facility] [address] [place] [address] Albumin/Globulin (S) [Mass conc ratio] 1.5 Normal 1.1-2.2 [facility] Comment on above: Performed By: #### 2 [id number] #### [facility] [address] [place] [address] ALP [Catalytic activity/Vol] 71 Int._Unit/L Normal 21-98 [facility] Comment on above: Performed By: #### 2 [id number] #### [facility] [address] [place] [address] ALT No additional P-5'-P [Catalytic activity/Vol] 42 Int._Unit/L Normal 6-46 [facility] Comment on above: Performed By: #### 2 [id number] #### [facility] [address] [place] [address] AST [Catalytic activity/Vol] 19 Int._Unit/L Normal 5-43 [facility] Comment on above: Performed By: #### 2 [id number] #### [facility] [address] [place] [address] Bilirubin [Mass/Vol] 1.0 mg/dL Normal 0.0-1.1 [facility] Comment on above: Performed By: #### 2 [id number] #### [facility] [address] [place] [address] Bilirubin.direct [Mass/Vol] 0.2 mg/dL Normal 0.0-0.4 [facility] Comment on above: Performed By: #### 2 [id number] #### [facility] [address] [place] [address] Bilirubin.indirect [Mass or moles/Vol] 0.8 mg/dL Normal 0.1-0.9 [facility] Comment on above: Performed By: #### 2 [id number] #### [facility] [address] [place] [address] Globulin (S) [Mass/Vol] 3.6 g/dL Normal 1.4-4.0 [facility] Comment on above: Performed By: #### 2 [id number] #### [facility] [address] [place] [address] Protein [Mass/Vol] 9.1 g/dL High 6.0-7.8 [facility] Comment on above: Performed By: #### 2 [id number] #### [facility] [address] [place] [address] Lactic Acidon 01-16-2025 Lactic Acid Lvl 1.6 mmol/L Normal 0.5-2.2 [facility] Comment on above: Performed By: #### 2 [id number] #### [facility] [address] [place] [address] Lipase Levelon 01-16-2025 Lipase [Catalytic activity/Vol] 8 U/L Low 13-58 [facility] Comment on above: Performed By: #### 2 [id number] #### [facility] [address] [place] [address] PT & PTTon 01-16-2025 aPTT Coag (PPP) [Time] 23.1 second(s) Low 25.1-36.5 [facility] Comment on above: Result Comment: [...] the same coagulation reagent and instrumentation as [facility]. Currently there are no coagulation studies available worldwide for children to 14 days, and no normal ranges. Heparin therapeutic range (represented by Anti-Factor Xa activity of 0.2 - 0.4 U/mL) corresponds to PTT of 56.6 - 109.0 sec. Performed By: #### 1 [id number] #### [facility] [address] [place] [address] INR Coag (PPP) [Relative time] 1.10 {INR} Invalid Interpretation Code [facility] Comment on above: Result Comment: INR results are specifically intended to assess patients stabilized on long-term Anticoagulation therapy suggested INR???s ???Less Intensive Anticoagulation??? 2.0 ??? 3.0 Conventional Range 3.0 ??? 4.5 Performed By: #### 1 [id number] #### [facility] [address] [place] [address] PT Coag (PPP) [Time] 12.3 second(s) Normal 9.4-12.5 [facility] Comment on above: Result Comment: [...] the same coagulation reagent and instrumentation as [facility]. Currently there are no coagulation studies available worldwide for children to 14 days, and no normal ranges. Performed By: #### 1 [id number] #### [facility] [address] [place] [address] Pre-Arrival Noteon Pre-Arrival Note Pre-Arrival Note Pre-Arrival Summary Name: , quincyjermaine Current Date: 01/16/2025 17:51:59 EST Gender: Female Date of : Age: 19 Pre-Arrival Type: EMS ETA: 01/16/2025 18:12:00 EST Primary Care Physician: Presenting Problem: fall Pre-Arrival User: Referring Source: Location: Completion Date/Time: 01/16/2025 17:42:00 [facility] Emergency Department Pre-Hospital Report Form Vital Signs: Pre-Hospital Report: Treatment in Route: Response to Treatment: Misc. Issues: Normal [facility] SEROLOGYOrdered By: Ghazal merida on 01-16-2025 Beta HCG ( test) Ql Negative (01/16/25 7:26 PM) Normal [facility] Man Sero Troponinon 01-16-2025 Troponin HS 3.40 pg/mL Low 10.10-27.1 0 [facility] Comment on above: Result Comment: The 95% CI (Confidence Interval) PPV (Positive Predictive Value) for myocardial infarction in females is 38 pg/mL, in males 51 pg/mL. The results should be used in conjunction with clinical conditions of myocardial infarction. (Access High Sensitivity Troponin I Instructions For Use, [place], June 2018) Performed By: #### 2 [id number] #### [facility] [address] [place] [address] eGFRon 01-16-2025 eGFR 93 mL/min/1.73 m2 Normal >=59 [facility] Comment on above: Performed By: #### 1 [id number] #### [facility] [address] [place] [address] Alanine aminotransferase [En zymatic activity/volume] in Serum or PlasmaOrdered By: Rd Brown on 10-28-2024 ALT [Catalytic activity/Vol] Alanine aminotransferase [Enzymatic activity/volume] in Serum or Plasma 7 [facility] Albumin [Mass/volume] in Ser um or Plasma by Bromocresol green (BCG) dye binding methoOrdered By: Rd Brown on 10-28-2024 Albumin BCG dye [Mass/Vol] Albumin [Mass/volume] in Serum or Plasma by Bromocresol green (BCG) dye binding metho 3.5-5.7 [facility] Alkaline phosphatase [Enzyma tic activity/volume] in Serum or PlasmaOrdered By: Rd Brown on 10-28-2024 ALP [Catalytic activity/Vol] Alkaline phosphatase [Enzymatic activity/volume] in Serum or Plasma 34-104 [facility] Amphetamine Screen Ql (U)Ord ered By: Rd Brown on 10-28-2024 Amphetamines Ql (U) Amphetamines screen Negativ e [facility] Appearance of UrineOrdered B y: Rd Brown on 10-28-2024 Appearance (U) Urine appearance Abnormal Clear [facility] Aspartate aminotransferase [ Enzymatic activity/volume] in Serum or PlasmaOrdered By: Rd Brown on 10-28-2024 AST [Catalytic activity/Vol] Aspartate aminotransferase [Enzymatic activity/volume] in Serum or Plasma 39 [facility] Bacteria [Presence] in Urine by AutomatedOrdered By: Rd Brown on 10-28-2024 Bacteria Auto Ql (U) Bacteria [Presence] in Urine by Automated High None Seen [facility] Barbiturates [Presence] in U rine by Screen methodOrdered By: Rd Brown on 10-28-2024 Barbiturates Screen Ql (U) Barbiturates [Presence] in Urine by Screen method Negative [facility] Basic Metabolic Panelon 12-0 Anion gap [Moles/Vol] 19.5 mmol/L High 6.0-15.0 Th e [facility] Comment on above: Performed By: #### C UU #### [address] Calcium [Mass/Vol] 10.4 mg/dL High 8.6-10.3 [facility] Comment on above: Performed By: #### C UU #### [address] Chloride [Moles/Vol] 94 mmol/L Low 98-107 [facility] Comment on above: Performed By: #### C UU #### [address] CO2 [Moles/Vol] 26.3 mmol/L Normal 21.0-31.0 [facility] Comment on above: Performed By: #### C UU #### [place] [address] [place] Creatinine [Mass/Vol] 0.91 mg/dL Normal 0.60-1.20 [facility] Comment on above: Performed By: #### C UU #### [place] [address] [place] Creatinine Clr Calc Pharmacy 104.62 Normal [facility] Comment on above: Performed By: #### C UU #### [place] [address] [place] GFR/1.73 sq M.predicted MDRD (S/P/Bld) [Vol rate/Area] mL/min/{1.73_m2} Normal [facility] Comment on above: Performed By: #### C UU #### [address] Glucose [Mass/Vol] 91 mg/dL Normal 70-100 [facility] Comment on above: Result Comment: [place] Glucose Reference Range is dependent on time and content of last meal. Glucose of more than 200 mg/dL in a nonstressed, ambulatory subject supports the diagnosis of Diabetes Mellitus. ADA recommended reference range Performed By: #### C UU #### [address] Potassium [Moles/Vol] 2.8 mmol/L Off scale low 3.5-5.1 [facility] Comment on above: Result Comment: Crit ical Result Called to and read back by: MATT BUSH at: 10/28/2024 19:29:56 by:[id number] Performed By: #### C UU #### [address] Sodium [Moles/Vol] 137 mmol/L Normal 136-145 [facility] Comment on above: Performed By: #### C UU #### [address] Urea nitrogen [Mass/Vol] 21 mg/dL Normal 7-25 [facility] Comment on above: Performed By: #### C UU #### [address] Basophils Auto (Bld) [#/Vol] Ordered By: Rd Brown on 10-28-2024 Basophils (Bld) [#/Vol] Automated basophil count 0.0-0.2 [facility] Basophils/100 WBC Auto (Bld) Ordered By: dR Brown on 10-28-2024 Basophils/100 WBC (Bld) Automated basophil % . [facility] Benzodiazepines Screen Ql (U )Ordered By: Rd Brown on 10-28-2024 Benzodiazepines Ql (U) Benzodiazepines [ Presence] in Urine by Screen method Negative [facility] Benzoylecgonine [Presence] i n Urine by Screen methodOrdered By: Rd Borwn on 10-28-2024 Benzoylecgonine Screen Ql (U) Benzoylecgonine [Presence] in Urine by Screen method Negative [facility] Bilirubin Test strip Ql (U)O rdered By: Rd Brown on 10-28-2024 Bilirubin Ql (U) Bilirubin.total [Pre sence] in Urine by Test strip Negative [facility] Bilirubin.direct [Mass/volum e] in Serum or PlasmaOrdered By: Rd Brown on 10-28-2024 Bilirubin.direct [Mass/Vol] Bilirubin.direct [Mass/volume] in Serum or Plasma High 0.03-0.18 [facility] Bilirubin.total [Mass/volume ] in Serum or PlasmaOrdered By: Rd Brown on 10-28-2024 Bilirubin [Mass/Vol] Bilirubin.total [Mass/volume] in Serum or Plasma High 0.3-1.0 [facility] Calcium [Mass/volume] in Ser um or PlasmaOrdered By: Rd Brown on 10-28-2024 Calcium [Mass/Vol] Calcium [Mass/volume ] in Serum or Plasma High 8.6-10.3 [facility] Cannabinoids [Presence] in U rine by Screen methodOrdered By: Rd Brown on 10-28-2024 Cannabinoids Screen Ql (U) Cannabinoids [Presence] in Urine by Screen method High Negative [facility] Comment on above: These are unconfirme [...] l [Moles/volume] in Serum or Plasma 21.0-31.0 [facility] Chloride [Moles/volume] in [place] or PlasmaOrdered By: Rd Brown on 10-28-2024 Chloride [Moles/Vol] Chloride [Moles/vol ume] in Serum or Plasma Low 98-107 [facility] Color Auto (U)Ordered By: Andrew Brown on 10-28-2024 Color (U) Color of Urine by Auto Abnormal Yellow Fi [facility] Complete Blood Count Auto Di ffon 10-28-2024 Basophils (Bld) [#/Vol] 0.1 10*3/uL Normal 0.0-0.2 [facility] Comment on above: Result Comment: PERF ORMED BY: [place] [address] PATHOLOGIST PLASTICS SEASONER OPERATOR IDANIA GODOY M.D. Performed By: #### C UU #### [address] Basophils/100 WBC (Bld) 0.7 % Normal . [facility] Comment on above: Performed By: #### C UU #### [address] Eosinophils (Bld) [#/Vol] 0.1 10*3/uL Normal 0.0-0.45 [facility] Comment on above: Performed By: #### C UU #### [address] Eosinophils/100 WBC (Bld) 0.6 % Normal . [facility] Comment on above: Performed By: #### C UU #### [address] Erythrocyte distribution width (RBC) [Ratio] 13.4 % Normal 11.9-15.3 [facility] Comment on above: Performed By: #### C UU #### [address] Hematocrit (Bld) [Volume fraction] 49.2 % High 34.0-46.4 [facility] Comment on above: Performed By: #### C UU #### [address] Hemoglobin (Bld) [Mass/Vol] 16.5 g/dL High 11.8-15.4 [facility] Comment on above: Performed By: #### C UU #### [address] Lymphocytes (Bld) [#/Vol] 2.9 10*3/uL Normal 1.00-4.8 [facility] Comment on above: Performed By: #### C UU #### [address] Lymphocytes/100 WBC (Bld) 14.7 % Normal . [facility] Comment on above: Performed By: #### C UU #### [address] MCH (RBC) [Entitic mass] 28.7 pg Normal 24.7-34.3 [facility] Comment on above: Performed By: #### C UU #### [address] MCV (RBC) [Entitic vol] 85.7 fL Normal 80-100 [facility] Comment on above: Performed By: #### C UU #### [address] Mean Corpuscular HGB Conc 33.5 g/dL Normal 32.0-35.0 [facility] Comment on above: Performed By: #### C UU #### [address] Monocytes (Bld) [#/Vol] 1.2 10*3/uL High 0.0-0.8 [facility] Comment on above: Performed By: #### C UU #### [address] Monocytes/100 WBC (Bld) 16.96 % Normal 0.00-20.00 [facility] Comment on above: Performed By: #### C UU #### [address] Monocytes/100 WBC (Bld) 5.9 % Normal . [facility] Comment on above: Performed By: #### C UU #### [address] [place] [address] [place] Neutrophils (Bld) [#/Vol] 15.5 10*3/uL High 1.8-7.7 [facility] Comment on above: Performed By: #### C UU #### [address] Neutrophils/100 WBC (Bld) 78.1 % Normal . [facility] Comment on above: Performed By: #### C UU #### [address] NRBC% 0.1 /100{WBC} Normal 0-0.5 [facility] Comment on above: Performed By: #### C UU #### [address] Platelet mean volume (Bld) [Entitic vol] 8.4 fL Normal 6.3-10.7 [facility] Comment on above: Performed By: #### C UU #### [place] [address] [place] Platelets (Bld) [#/Vol] 333 10*3/uL Normal 150-450 [facility] Comment on above: Performed By: #### C UU #### [address] RBC (Bld) [#/Vol] 5.74 10*6/uL High 3.60-5.00 [facility] Comment on above: Performed By: #### C UU #### [address] WBC (Bld) [#/Vol] 19.8 10*3/uL High 3.8-11.6 [facility] Comment on above: Performed By: #### C UU #### [address] Creatinine [Mass/volume] in Serum or PlasmaOrdered By: Rd Brown on 10-28-2024 Creatinine [Mass/Vol] Creatinine [Mass/v olume] in Serum or Plasma 0.60-1.20 [facility] Dipstick and Microscopicon 1 12-29-2023 Appearance (U) Turbid Critically abnormal Clear [facility] Comment on above: Order Comment: Name Collection Type:: Clean-Voided Midstream Performed By: #### C UU #### [facility] [address] [place] [address] [place] Bacteria,Urine 1+ High None Seen [facility] Comment on above: Order Comment: Name Collection Type:: Clean-Voided Midstream Performed By: #### C UU #### [place] [address] [place] Bilirubin,Urine Negative Normal Negative [facility] Comment on above: Order Comment: Name Collection Type:: Clean-Voided Midstream Performed By: #### C UU #### [place] [address] [place] Color (U) Light-Tunica Critically abnormal Yellow [facility] Comment on above: Order Comment: Name Collection Type:: Clean-Voided Midstream Performed By: #### C UU #### [place] [address] [place] Glucose Ql (U) Normal Normal Normal [facility] Comment on above: Order Comment: Name Collection Type:: Clean-Voided Midstream Performed By: #### C UU #### [place] [address] [place] Hyaline Casts,Urine 9 [LPF] High 0-8 [facility] Comment on above: Order Comment: Name Collection Type:: Clean-Voided Midstream Performed By: #### C UU #### [place] [address] [place] Ketones Ql (U) 3+ High Negative [facility] Comment on above: Order Comment: Name Collection Type:: Clean-Voided Midstream Performed By: #### C UU #### [place] [address] [place] Leukocyte esterase Test strip Ql (U) 3+ High Negative [facility] Comment on above: Order Comment: Name Collection Type:: Clean-Voided Midstream Performed By: #### C UU #### [facility] [address] [place] [address] [place] Mucus,Urine 4+ Critically abnormal [facility] Comment on above: Order Comment: Name Collection Type:: Clean-Voided Midstream Performed By: #### C UU #### [place] [address] [place] Nitrite,Urine Negative Normal Negative [facility] Comment on above: Order Comment: Name Collection Type:: Clean-Voided Midstream Performed By: #### C UU #### [address] Occult Blood,Urine 3+ High Negative [facility] Comment on above: Order Comment: Name Collection Type:: Clean-Voided Midstream Performed By: #### C UU #### [address] pH (U) 8.0 [pH] Normal 5.0-9.0 [facility] Comment on above: Order Comment: Name Collection Type:: Clean-Voided Midstream Performed By: #### C UU #### [place] [address] [place] Protein (U) [Mass/Vol] 100 mg/dL High Negative Th e [facility] Comment on above: Order Comment: Name Collection Type:: Clean-Voided Midstream Performed By: #### C UU #### [place] [address] [place] RBC,Urine Innumerable High 0-4 [facility] Comment on above: Order Comment: Name Collection Type:: Clean-Voided Midstream Performed By: #### C UU #### [place] [address] [place] Specificy [place],Urine 1.029 Normal 1.001-1.03 0 [facility] Comment on above: Order Comment: Name Collection Type:: Clean-Voided Midstream Performed By: #### C UU #### [place] [address] [place] Squamous Epithelial Cell,Urine 1 [HPF] Normal 0-2 [facility] Comment on above: Order Comment: Name Collection Type:: Clean-Voided Midstream Performed By: #### C UU #### [address] Urobilinogen,Urine 6 mg/dL High Normal [facility] Comment on above: Order Comment: Name Collection Type:: Clean-Voided Midstream Performed By: #### C UU #### [address] WBC,Urine 50 [HPF] High 0-4 [facility] Comment on above: Order Comment: Name Collection Type:: Clean-Voided Midstream Performed By: #### C UU #### [address] Drug Screen,Urineon 10-28-20 24 Amphetamine Screen,Urine Negative Normal Negative [facility] Comment on above: Performed By: #### C K, PT, BNP, PTT, CBC, BMP, HS TROP #### [address] Barbiturate Screen,Urine Negative Normal Negative [facility] Comment on above: Performed By: #### C K, PT, BNP, PTT, CBC, BMP, HS TROP #### [address] Benzodiazepines Screen,Urine Negative Normal Negative [facility] Comment on above: Performed By: #### C K, PT, BNP, PTT, CBC, BMP, HS TROP #### [address] Cannabinoid Screen,Urine Positive High Negative [facility] Comment on above: Result Comment: Thes e are unconfirmed results and should not be used for legal purposes. Drug Cut-Off Concentration: AMPH 1000 ng/mL NIKOLAS 200 ng/mL SHRAVAN 200 ng/mL COCM 300 ng/mL OP 300 ng/mL PCP 25 ng/mL THC 20 ng/mL [place]MED [place] [address] PATHOLOGIST PLASTICS SEASONER OPERATOR IDANIA GODOY M.D. Performed By: #### C K, PT, BNP, PTT, CBC, BMP, HS TROP #### [facility] [address] Cocaine Screen,Urine Negative Normal Negative [facility] Physician [facility] Comment on above: Performed By: #### C K, PT, BNP, PTT, CBC, BMP, HS TROP #### [facility] [address] Opiate Screen,Urine Negative Normal Negative [facility] Comment on above: Performed By: #### C K, PT, BNP, PTT, CBC, BMP, HS TROP #### [facility] [address] Phencyclidine Screen,Urine Negative Normal Negative [facility] Physician [facility] Comment on above: Performed By: #### C K, PT, BNP, PTT, CBC, BMP, HS TROP #### [facility] [address] ECG 12 lead ECGon 10-28-2024 ECG 12 lead ECG [facility] [place] [address] [place] [address] Electrocardiograph Report Signed Patient: Pili Parikh MR#: [id number] : 2005 Acct:[id number] Age/Sex: 19 / F ADM Date: 10/28/24 Loc: ER Room: Type: [facility] ER Attending Dr: Ordering Provider: Rd [...] sinus rhythm Confirmed by Robert BOLANOS DO ([id number]) on 10/28/2024 9:48:18 PM Referred By: Electronically Signed By: Robert BOLANOS DO Transcribed By: MUS Signed By Robert Bolanos DO 12/29/232147 Normal [facility] Eosinophils Auto (Bld) [#/Vo l]Ordered By: Rd Brown on 10-28-2024 Eosinophils (Bld) [#/Vol] Automated eosinophil count 0.0-0.45 [facility] Eosinophils/100 WBC Auto (Bl d)Ordered By: Rd Brown on 10-28-2024 Eosinophils/100 WBC (Bld) Automated eosinophil % . [facility] Epithelial cells.squamous [# /area] in Urine sediment by Automated countOrdered By: Rd Brown on 10-28-2024 Epithelial cells.squamous Auto (Urine sed) [#/Area] Epithelial cells.squamous [#/area] in Urine sediment by Automated count 0-2 [facility] Erythrocyte distribution wid th Auto (RBC) [Ratio]Ordered By: Rd Brown on 10-28-2024 Erythrocyte distribution width (RBC) [Ratio] Erythrocyte distribution width [Ratio] by Automated count 11.9-15.3 [facility] Erythrocytes [#/area] in Uri ne sediment by Automated countOrdered By: Rd Brown on 10-28-2024 RBC Auto (Urine sed) [#/Area] Erythrocytes [#/area] in Urine sediment by Automated count High 0-4 [facility] Globulin Calc (S) [Mass/Vol] Ordered By: Rd Brown on 10-28-2024 Globulin (S) [Mass/Vol] Serum globulin measurement by calculation (mass/volume) [facility] Glucose [Mass/volume] in Ser um or PlasmaOrdered By: Rd Brown on 10-28-2024 Glucose [Mass/Vol] Glucose [Mass/volume ] in Serum or Plasma 70-100 [facility] Comment on above: ADA recommended refe [...] [Mass/volume] in Urine by Test strip Normal [facility] HCG ( test) IA.rapi d Ql (U)Ordered By: Rd Brown on 10-28-2024 HCG ( test) Ql (U) Urine human chorionic gonadotropin (hCG) detection by immunoassay [facility] HCG,Urineon 10-28-2024 Beta HCG ( test) Ql (U) Negative Normal [facility] Comment on above: Order Comment: Name Collection Type:: Clean-Voided Midstream Result Comment: PERF ORMED BY: [place] [address] PATHOLOGIST PLASTICS SEASONER OPERATOR IDANIA GODOY M.D. Performed By: #### C UU #### [address] Hematocrit Auto (Bld) [Volum e fraction]Ordered By: Rd Brown on 10-28-2024 Hematocrit (Bld) [Volume fraction] Hematocrit [Volume Fraction] of Blood by Automated count High 34.0-46.4 [facility] Hemoglobin Test strip Ql (U) Ordered By: Rd Brown on 10-28-2024 Hemoglobin Ql (U) Hemoglobin [Presence ] in Urine by Test strip High Negative [facility] Hemoglobin [Mass/volume] in BloodOrdered By: Rd Brown on 10-28-2024 Hemoglobin (Bld) [Mass/Vol] Hemoglobin [Mass/volume] in Blood High 11.8-15.4 [facility] Hepatic Panelon 10-28-2024 Albumin [Mass/Vol] 5.4 g/dL Normal 3.5-5.7 [facility] Comment on above: Performed By: #### C UU #### [address] Albumin/Globulin [Mass ratio] 1.5 {ratio} Normal [facility] Comment on above: Performed By: #### C UU #### [place] [address] [place] ALP [Catalytic activity/Vol] 78 U/L Normal 34-104 [facility] Comment on above: Performed By: #### C UU #### [address] ALT [Catalytic activity/Vol] 48 U/L Normal 7-52 [facility] Comment on above: Performed By: #### C UU #### [address] AST [Catalytic activity/Vol] 30 U/L Normal 13-39 [facility] Comment on above: Performed By: #### C UU #### [address] Bilirubin [Mass/Vol] 1.1 mg/dL High 0.3-1.0 [facility] Comment on above: Performed By: #### C UU #### [address] Bilirubin,Indirect 0.9 mg/dL Normal [facility] Comment on above: Performed By: #### C UU #### [address] Bilirubin.indirect [Mass/Vol] 0.20 mg/dL High 0.03-0.18 [facility] Comment on above: Performed By: #### C UU #### [address] Globulin (S) [Mass/Vol] 3.5 g/dL Normal [facility] Comment on above: Performed By: #### C UU #### [address] Protein [Mass/Vol] 8.9 g/dL Normal 6.4-8.9 [facility] Comment on above: Performed By: #### C UU #### [address] Hyaline casts [#/area] in Ur ine sediment by Automated countOrdered By: Rd Brown on 10-28-2024 Hyaline casts Auto (Urine sed) [#/Area] Hyaline casts [#/area] in Urine sediment by Automated count High 0-8 [facility] Ketones Test strip Ql (U)Ord ered By: Rd Brown on 10-28-2024 Ketones Ql (U) Ketones [Presence] i n Urine by Test strip High Negative [facility] Leukocyte esterase [Presence ] in Urine by Test stripOrdered By: Rd Brown on 10-28-2024 Leukocyte esterase Test strip Ql (U) Leukocyte esterase [Presence] in Urine by Test strip High Negative [facility] Leukocytes [#/area] in Urine sediment by Automated countOrdered By: Rd Brown on 10-28-2024 WBC Auto (Urine sed) [#/Area] Leukocytes [#/area] in Urine sediment by Automated count High 0-4 [facility] Leukocytes [#/volume] correc venkata for nucleated erythrocytes in Blood by Automated counOrdered By: Rd Brown on 10-28-2024 WBC corrected for nucl RBC Auto (Bld) [#/Vol] Leukocytes [#/volume] corrected for nucleated erythrocytes in Blood by Automated coun High 3.8-11.6 [facility] Lipaseon 10-28-2024 Lipase [Catalytic activity/Vol] 19.0 U/L Normal 11.0-82.0 [facility] Comment on above: Result Comment: PERF ORMED BY: [place] [address] PATHOLOGIST PLASTICS SEASONER OPERATOR IDANIA GODOY M.D. Performed By: #### C UU #### [address] Lipase [Enzymatic activity/v olume] in Serum or PlasmaOrdered By: Rd Brown on 10-28-2024 Lipase [Catalytic activity/Vol] Lipase [Enzymatic activity/volume] in Serum or Plasma 11.0-82.0 [facility] Lymphocytes Auto (Bld) [#/Vo l]Ordered By: Rd Brown on 10-28-2024 Lymphocytes (Bld) [#/Vol] Lymphocytes [#/volume] in Blood by Automated count 1.00-4.8 [facility] Lymphocytes/100 WBC Auto (Bl d)Ordered By: Rd Brown on 10-28-2024 Lymphocytes/100 WBC (Bld) Lymphocytes/100 leukocytes in Blood by Automated count . [facility] MCH Auto (RBC) [Entitic mass ]Ordered By: Rd Brown on 10-28-2024 MCH (RBC) [Entitic mass] MCH [Entitic mass] by Automated count 24.7-34.3 [facility] MCHC Auto (RBC) [Mass/Vol]Or dered By: Rd Brown on 10-28-2024 MCHC (RBC) [Mass/Vol] MCHC [Mass/volume] by Automated count 32.0-35.0 [facility] MCV Auto (RBC) [Entitic vol] Ordered By: Rd Brown on 10-28-2024 MCV (RBC) [Entitic vol] MCV [Entitic volume] by Automated count 80-100 [facility] Monocyte distribution width [Entitic volume] in Blood by AutomatedOrdered By: Rd Brown on 10-28-2024 Monocyte distribution width Auto (Bld) [Entitic vol] Monocyte distribution width [Entitic volume] in Blood by Automated 0.00-20.00 [facility] Monocytes Auto (Bld) [#/Vol] Ordered By: Rd Brown on 10-28-2024 Monocytes (Bld) [#/Vol] Automated blood monocyte count High 0.0-0.8 [facility] Monocytes/100 WBC Auto (Bld) Ordered By: Rd Brown on 10-28-2024 Monocytes/100 WBC (Bld) Automated monocyte % . [facility] Mucus [Presence] in Urine by AutomatedOrdered By: Rd Brown on 10-28-2024 Mucus Auto Ql (U) Mucus [Presence] in Urine by Automated Abnormal [facility] Neutrophils Auto (Bld) [#/Vo l]Ordered By: Rd Brown on 10-28-2024 Neutrophils (Bld) [#/Vol] Neutrophils [#/volume] in Blood by Automated count High 1.8-7.7 [facility] Neutrophils/100 WBC Auto (Bl d)Ordered By: Rd Brown on 10-28-2024 Neutrophils/100 WBC (Bld) Automated neutrophil % . [facility] Nitrite Test strip Ql (U)Ord ered By: Rd Brown on 10-28-2024 Nitrite Ql (U) Nitrite [Presence] i n Urine by Test strip Negative [facility] No Panel InformationOrdered By: Rd Brown on 10-28-2024 Estimated GFR (CKD-EPI) > 60.0 mL/Min [facility] Creatinine Clearance (Chem 104.62 [facility] Nucleated erythrocytes [Pres ence] in Blood by Automated countOrdered By: Rd Brown on 10-28-2024 Nucleated RBC Auto Ql (Bld) Nucleated erythrocytes [Presence] in Blood by Automated count 0-0.5 [facility] Opiates [Presence] in Urine by Screen methodOrdered By: Rd Brown on 10-28-2024 Opiates Screen Ql (U) Opiates [Presence] in Urine by Screen method Negative [facility] Phencyclidine Screen Ql (U)O rdered By: Rd Brown on 10-28-2024 Phencyclidine Ql (U) Phencyclidine [Pres ence] in Urine by Screen method Negative [facility] Platelet mean volume Auto (B ld) [Entitic vol]Ordered By: Rd Brown on 10-28-2024 Platelet mean volume (Bld) [Entitic vol] Platelet mean volume [Entitic volume] in Blood by Automated count 6.3-10.7 [facility] Platelets Auto (Bld) [#/Vol] Ordered By: Rd Brown on 10-28-2024 Platelets (Bld) [#/Vol] Platelets [#/volume] in Blood by Automated count 150-450 [facility] Potassiumon 10-28-2024 Potassium [Moles/Vol] 2.9 mmol/L Off scale low 3.5-5.1 [facility] Comment on above: Result Comment: Crit ical Result Called to and read back by: RYLAN BELL at: 10/28/2024 23:09:11 by:MO PERFORMED BY: [place] [address] PATHOLOGIST PLASTICS SEASONER OPERATOR IDANIA GODYO M.D. Performed By: #### C UU #### [address] Potassium [Moles/volume] in Serum or PlasmaOrdered By: Rd Brown on 10-28-2024 Potassium [Moles/Vol] Potassium [Moles/v olume] in Serum or Plasma Critically low 3.5-5.1 [facility] Comment on above: Critical Result Call ed to and read back by: RYLAN BELL at: 10/28/2024 23:09:11 by:MO Protein Test strip (U) [Mass /Vol]Ordered By: Rd Brown on 10-28-2024 Protein (U) [Mass/Vol] Protein [Mass/vol ume] in Urine by Test strip High Negative [facility] Protein [Mass/volume] in Ser um or PlasmaOrdered By: Rd Brown on 10-28-2024 Protein [Mass/Vol] Protein [Mass/volume ] in Serum or Plasma 6.4-8.9 [facility] RBC Auto (Bld) [#/Vol]Ordere d By: Rd Brown on 10-28-2024 RBC (Bld) [#/Vol] Erythrocytes [#/volu me] in Blood by Automated count High 3.60-5.00 [facility] Serum or plasma albumin/glob ulin mass ratioOrdered By: Rd Brown on 10-28-2024 Albumin/Globulin [Mass ratio] Serum or plasma albumin/globulin mass ratio [facility] Serum or plasma anion gap de terminationOrdered By: Rd Brown on 10-28-2024 Anion gap [Moles/Vol] Serum or plasma an ion gap determination High 6.0-15.0 [facility] Serum or plasma non-glucuron idated bilirubin measurement (mass/volume)Ordered By: Rd Brown on 10-28-2024 Bilirubin.indirect [Mass/Vol] Serum or plasma non-glucuronidated bilirubin measurement (mass/volume) [facility] Sodium [Moles/volume] in Ser um or PlasmaOrdered By: Rd Brown on 10-28-2024 Sodium [Moles/Vol] Sodium [Moles/volume ] in Serum or Plasma 136-145 [facility] Specific gravity Test strip (U) [Rel density]Ordered By: Rd Brown on 10-28-2024 Specific gravity (U) [Rel density] Specific gravity of Urine by Test strip 1.001-1.03 0 [facility] Urea nitrogen [Mass/volume] in Serum or PlasmaOrdered By: Rd Brown on 10-28-2024 Urea nitrogen [Mass/Vol] Urea nitrogen [Mass/volume] in Serum or Plasma 7-25 [facility] Urine Cultureon 10-28-2024 Bacteria identified Cx Nom (U) 75,000 colonies/ml mixed bacterial skin contaminants 2 Days PERFORMED BY: [facility] [address] [place] [address] PATHOLOGIST PLASTICS SEASONER OPERATOR IDANIA GODOY M.D. Normal [facility] Comment on above: Performed By: #### C UU #### [address] Urine cultureOrdered By: Mj Brown on 10-28-2024 Bacteria identified Cx Nom (U) Urine culture [facility] Urobilinogen Test strip (U) [Mass/Vol]Ordered By: Rd Brown on 10-28-2024 Urobilinogen (U) [Mass/Vol] Urobilinogen [Mass/volume] in Urine by Test strip High Normal [facility] WBC Auto (Bld) [#/Vol]Ordere d By: Rd Brown on 10-28-2024 WBC (Bld) [#/Vol] Leukocytes [#/volume ] in Blood by Automated count High 3.8-11.6 [facility] pH Test strip (U)Ordered By: Rd Brown on 10-28-2024 pH (U) pH of Urine by Test strip 5.0-9.0 [facility] Activated partial thrombopla stin time (aPTT) in platelet poor plasma by coagulation aOrdered By: Ania Watson on 08-03-2024 aPTT Coag (PPP) [Time] 24.7 s Low 25.1-36.5 [facility] Comment on above: A hematocrit value g reater than 55% may lead to inaccurate results in coagulation testing. Patients having hematocrit values >55% require a special collection tube for coagulation studies. Please contact the laboratory at [phone] for redraw instructions. BNP ser/plasOrdered By: Reji Watson on 08-03-2024 Natriuretic peptide B (Bld) [Mass/Vol] 19.0 pg/mL Normal 5-100 [facility] Comment on above: Order Comment: PT WA NTS TO WAIT UNTIL SHE IS TAKEN BACK INTO ER AND THEY START A IV ON HER,KAH, 2100 Result Comment: PERF ORMED BY: [facility] [address] [place] [address] PATHOLOGIST PLASTICS SEASONER OPERATOR JIANLAN SUN M.D. Performed By: #### C K, PT, BNP, PTT, CBC, BMP, HS TROP #### [facility] [address] Basic Metabolic Panelon Creatinine Clr Calc Pharmacy 154.09 Normal [facility] Comment on above: Order Comment: PT WA NTS TO WAIT UNTIL SHE IS TAKEN BACK INTO ER AND THEY START A IV ON 2099 Result Comment: PERF ORMED BY: [place] [address] PATHOLOGIST PLASTICS SEASONER OPERATOR NAY SARKAR M.D. Performed By: #### C K, PT, BNP, PTT, CBC, BMP, HS TROP #### [address] GFR/1.73 sq M.predicted MDRD (S/P/Bld) [Vol rate/Area] mL/min/{1.73_m2} Normal [facility] Comment on above: Order Comment: PT WA NTS TO WAIT UNTIL SHE IS TAKEN BACK INTO ER AND THEY START A IV ON 2099 Performed By: #### C K, PT, BNP, PTT, CBC, BMP, HS TROP #### [address] Calcium [Mass/volume] in Ser um or PlasmaOrdered By: Ania Watson on 08-03-2024 Calcium [Mass/Vol] 9.6 mg/dL Normal 8.6-10.3 [facility] Comment on above: Order Comment: PT WA NTS TO WAIT UNTIL SHE IS TAKEN BACK INTO ER AND THEY START A IV ON HER2099 Performed By: #### C K, PT, BNP, PTT, CBC, BMP, HS TROP #### [facility] [address] [place] [address] [place] Carbon dioxide, total [Moles /volume] in Serum or PlasmaOrdered By: Ania Watson on 08-03-2024 CO2 [Moles/Vol] 18.5 mmol/L Low 21.0-31.0 [facility] Comment on above: Order Comment: PT WA NTS TO WAIT UNTIL SHE IS TAKEN BACK INTO ER AND THEY START A IV ON 2099 Performed By: #### C K, PT, BNP, PTT, CBC, BMP, HS TROP #### [facility] [address] Chloride [Moles/volume] in [place] or PlasmaOrdered By: Ania Watson on 08-03-2024 Chloride [Moles/Vol] 99 mmol/L Normal 98-107 [facility] Comment on above: Order Comment: PT WA NTS TO WAIT UNTIL SHE IS TAKEN BACK INTO ER AND THEY START A IV ON HER2099 Performed By: #### C K, PT, BNP, PTT, CBC, BMP, HS TROP #### [facility] [address] Complete Blood Count Auto Di ffon 08-03-2024 Basophils (Bld) [#/Vol] 0.1 10*3/uL Normal 0.0-0.2 [facility] Comment on above: Order Comment: PT WA NTS TO WAIT UNTIL SHE IS TAKEN BACK INTO ER AND THEY START A IV ON HER2099 Result Comment: PERF ORMED BY: [place] [address] PATHOLOGIST PLASTICS SEASONER OPERATOR NAY SARKAR M.D. Performed By: #### C K, PT, BNP, PTT, CBC, BMP, HS TROP #### [facility] [address] [place] [address] Basophils/100 WBC (Bld) 0.4 % Normal . [facility] Comment on above: Order Comment: PT WA NTS TO WAIT UNTIL SHE IS TAKEN BACK INTO ER AND THEY START A IV ON HER2099 Performed By: #### C K, PT, BNP, PTT, CBC, BMP, HS TROP #### [facility] [address] Eosinophils (Bld) [#/Vol] 0.2 10*3/uL Normal 0.0-0.45 [facility] Comment on above: Order Comment: PT WA NTS TO WAIT UNTIL SHE IS TAKEN BACK INTO ER AND THEY START A IV ON HER2099 Performed By: #### C K, PT, BNP, PTT, CBC, BMP, HS TROP #### [address] Eosinophils/100 WBC (Bld) 0.9 % Normal . [facility] Comment on above: Order Comment: PT WA NTS TO WAIT UNTIL SHE IS TAKEN BACK INTO ER AND THEY START A IV ON HER,, 2099 Performed By: #### C K, PT, BNP, PTT, CBC, BMP, HS TROP #### [address] Erythrocyte distribution width (RBC) [Ratio] 13.2 % Normal 11.9-15.3 [facility] Comment on above: Order Comment: PT WA NTS TO WAIT UNTIL SHE IS TAKEN BACK INTO ER AND THEY START A IV ON HER,2099 Performed By: #### C K, PT, BNP, PTT, CBC, BMP, HS TROP #### [address] Hematocrit (Bld) [Volume fraction] 43.6 % Normal 34.0-46.4 [facility] Comment on above: Order Comment: PT WA NTS TO WAIT UNTIL SHE IS TAKEN BACK INTO ER AND THEY START A IV ON HER,2099 Performed By: #### C K, PT, BNP, PTT, CBC, BMP, HS TROP #### [address] Hemoglobin (Bld) [Mass/Vol] 14.8 g/dL Normal 11.8-15.4 [facility] Comment on above: Order Comment: PT WA NTS TO WAIT UNTIL SHE IS TAKEN BACK INTO ER AND THEY START A IV ON HER,, 2099 Performed By: #### C K, PT, BNP, PTT, CBC, BMP, HS TROP #### [address] Lymphocytes (Bld) [#/Vol] 2.5 10*3/uL Normal 1.00-4.8 [facility] Comment on above: Order Comment: PT WA NTS TO WAIT UNTIL SHE IS TAKEN BACK INTO ER AND THEY START A IV ON HER,2099 Performed By: #### C K, PT, BNP, PTT, CBC, BMP, HS TROP #### [address] Lymphocytes/100 WBC (Bld) 13.0 % Normal . [facility] Comment on above: Order Comment: PT WA NTS TO WAIT UNTIL SHE IS TAKEN BACK INTO ER AND THEY START A IV ON HER,, 2099 Performed By: #### C K, PT, BNP, PTT, CBC, BMP, HS TROP #### [address] MCH (RBC) [Entitic mass] 28.4 pg Normal 24.7-34.3 [facility] Comment on above: Order Comment: PT WA NTS TO WAIT UNTIL SHE IS TAKEN BACK INTO ER AND THEY START A IV ON HER,, 2099 Performed By: #### C K, PT, BNP, PTT, CBC, BMP, HS TROP #### [address] MCV (RBC) [Entitic vol] 83.8 fL Normal 80-100 [facility] Comment on above: Order Comment: PT WA NTS TO WAIT UNTIL SHE IS TAKEN BACK INTO ER AND THEY START A IV ON HER,, 2099 Performed By: #### C K, PT, BNP, PTT, CBC, BMP, HS TROP #### [address] Mean Corpuscular HGB Conc 33.9 g/dL Normal 32.0-35.0 [facility] Comment on above: Order Comment: PT WA NTS TO WAIT UNTIL SHE IS TAKEN BACK INTO ER AND THEY START A IV ON HER,, 2099 Performed By: #### C K, PT, BNP, PTT, CBC, BMP, HS TROP #### [address] Monocytes (Bld) [#/Vol] 1.6 10*3/uL High 0.0-0.8 [facility] Comment on above: Order Comment: PT WA NTS TO WAIT UNTIL SHE IS TAKEN BACK INTO ER AND THEY START A IV ON HER,, 2099 Performed By: #### C K, PT, BNP, PTT, CBC, BMP, HS TROP #### [address] [place] [address] [place] Monocytes/100 WBC (Bld) 18.96 % Normal 0.00-20.00 [facility] Comment on above: Order Comment: PT WA NTS TO WAIT UNTIL SHE IS TAKEN BACK INTO ER AND THEY START A IV ON HER,, 2099 Performed By: #### C K, PT, BNP, PTT, CBC, BMP, HS TROP #### [facility] [address] [place] [address] [place] Monocytes/100 WBC (Bld) 8.1 % Normal . [facility] Comment on above: Order Comment: PT WA NTS TO WAIT UNTIL SHE IS TAKEN BACK INTO ER AND THEY START A IV ON HER,, 2099 Performed By: #### C K, PT, BNP, PTT, CBC, BMP, HS TROP #### [place] [address] [place] Neutrophils (Bld) [#/Vol] 15.0 10*3/uL High 1.8-7.7 [facility] Comment on above: Order Comment: PT WA NTS TO WAIT UNTIL SHE IS TAKEN BACK INTO ER AND THEY START A IV ON HER,, 2099 Performed By: #### C K, PT, BNP, PTT, CBC, BMP, HS TROP #### [place] [address] [place] Neutrophils/100 WBC (Bld) 77.6 % Normal . [facility] Comment on above: Order Comment: PT WA NTS TO WAIT UNTIL SHE IS TAKEN BACK INTO ER AND THEY START A IV ON HER,, 2099 Performed By: #### C K, PT, BNP, PTT, CBC, BMP, HS TROP #### [place] [address] [place] NRBC% 0.3 /100{WBC} Normal 0-0.5 [facility] Comment on above: Order Comment: PT WA NTS TO WAIT UNTIL SHE IS TAKEN BACK INTO ER AND THEY START A IV ON HER,, 2099 Performed By: #### C K, PT, BNP, PTT, CBC, BMP, HS TROP #### [facility] [address] [place] [address] [place] Platelet mean volume (Bld) [Entitic vol] 8.6 fL Normal 6.3-10.7 [facility] Comment on above: Order Comment: PT WA NTS TO WAIT UNTIL SHE IS TAKEN BACK INTO ER AND THEY START A IV ON HER,2099 Performed By: #### C K, PT, BNP, PTT, CBC, BMP, HS TROP #### [facility] [address] Platelets (Bld) [#/Vol] 282 10*3/uL Normal 150-450 [facility] Comment on above: Order Comment: PT WA NTS TO WAIT UNTIL SHE IS TAKEN BACK INTO ER AND THEY START A IV ON HER,2099 Performed By: #### C K, PT, BNP, PTT, CBC, BMP, HS TROP #### [facility] [address] [place] [address] RBC (Bld) [#/Vol] 5.20 10*6/uL High 3.60-5.00 [facility] Comment on above: Order Comment: PT WA NTS TO WAIT UNTIL SHE IS TAKEN BACK INTO ER AND THEY START A IV ON HER,2099 Performed By: #### C K, PT, BNP, PTT, CBC, BMP, HS TROP #### [facility] [address] [place] [address] WBC (Bld) [#/Vol] 19.4 10*3/uL High 3.8-11.6 [facility] Comment on above: Order Comment: PT WA NTS TO WAIT UNTIL SHE IS TAKEN BACK INTO ER AND THEY START A IV ON HER,, 2099 Performed By: #### C K, PT, BNP, PTT, CBC, BMP, HS TROP #### [address] Creatine kinase [Enzymatic a ctivity/volume] in Serum or PlasmaOrdered By: Ania Watson on 08-03-2024 CK [Catalytic activity/Vol] 33 U/L Normal 30-223 [facility] Comment on above: Order Comment: PT WA NTS TO WAIT UNTIL SHE IS TAKEN BACK INTO ER AND THEY START A IV ON HER,, 2099 Performed By: #### C K, PT, BNP, PTT, CBC, BMP, HS TROP #### [facility] [address] [id number] [facility] Creatinine [Mass/volume] in Serum or PlasmaOrdered By: Ania Watson on 08-03-2024 Creatinine [Mass/Vol] 0.61 mg/dL Normal 0.60-1.20 [facility] Comment on above: Order Comment: PT WA NTS TO WAIT UNTIL SHE IS TAKEN BACK INTO ER AND THEY START A IV ON HER,KAH, 2100 Performed By: #### C K, PT, BNP, PTT, CBC, BMP, HS TROP #### [facility] [address] [id number] [facility] ECG 12 lead ECGon 08-03-2024 ECG 12 lead ECG [facility] [place] [address] [place] [address] Electrocardiograph Report Signed Patient: Pili Parikh MR#: [id number] : 2005 Acct:[id number] Age/Sex: 19 / F ADM Date: 08/03/24 Loc: ER Room: Type: [facility] ER Attending Dr: Ordering Provider: Ania Watson [...] wave abnormality Confirmed by Ania Watson MD ([id number]) on 08/04/2024 1:34:37 AM Referred By: Electronically Signed By: Ania Watson MD Transcribed By: MUS Signed By Ania Watson MD 06/20 0134 Normal [facility] Glucose [Mass/volume] in Ser um or PlasmaOrdered By: Ania Watson on 08-03-2024 Glucose [Mass/Vol] 91 mg/dL Normal 70-100 [facility] Comment on above: ADA recommended refe rence rangeRandom Glucose Reference Range is dependent on time and content of last meal. Glucose of more than 200 mg/dL in a nonstressed, ambulatory subject supports the diagnosis of Diabetes Mellitus. Order Comment: PT WA NTS TO WAIT UNTIL SHE IS TAKEN BACK INTO ER AND THEY START A IV ON HER,2099 Result Comment: [place] Glucose Reference Range is dependent on time and content of last meal. Glucose of more than 200 mg/dL in a nonstressed, ambulatory subject supports the diagnosis of Diabetes Mellitus. ADA recommended reference range Performed By: #### C K, PT, BNP, PTT, CBC, BMP, HS TROP #### [facility] [address] [place] [address] [facility] INR in Platelet poor plasma by Coagulation assayOrdered By: Ania Watson on 08-03-2024 INR Coag (PPP) [Relative time] 1.2 {INR} Normal [facility] Comment on above: INR Therapeutic Rang [...] BNP, PTT, CBC, BMP, HS TROP #### [facility] [address] [place] [address] [facility] No Panel InformationOrdered By: Ania Watson on 08-03-2024 Estimated GFR (CKD-EPI) > 60.0 mL/Min [facility] Creatinine Clearance (Chem 154.09 [facility] Partial Thromboplastin Timeo n 08-03-2024 aPTT Coag (Bld) [Time] 24.7 s Low 25.1-36.5 Th e [facility] Comment on above: [...] coagulation studies. Please contact the laboratory at [phone] for redraw instructions. PERFORMED BY: [place] [address] PATHOLOGIST PLASTICS SEASONER OPERATOR NAY SARKAR M.D. Performed By: #### C K, PT, BNP, PTT, CBC, BMP, HS TROP #### [facility] [address] [place], [place] [address] [facility] Potassium [Moles/volume] in Serum or PlasmaOrdered By: Ania Watson on 08-03-2024 Potassium [Moles/Vol] 3.5 mmol/L Normal 3.5-5.1 [facility] Comment on above: Hemolysis is present at a level that could interfere with the result.Contact lab if redraw is required Order Comment: PT WA NTS TO WAIT UNTIL SHE IS TAKEN BACK INTO ER AND THEY START A IV ON HER,, 2099 Result Comment: Hemo lysis is present at a level that could interfere with the result. Contact lab if redraw is required Performed By: #### C K, PT, BNP, PTT, CBC, BMP, HS TROP #### [facility] [address] [place] [address] [facility] Prothrombin time (PT)Ordered By: Ania Watson on 08-03-2024 PT Coag (PPP) [Time] 13.3 s High 9.0-12.9 [facility] Comment on above: A hematocrit value g reater than 55% may lead to inaccurate results in coagulation testing. Patients having hematocrit values >55% require a special collection tube for coagulation studies. Please contact the laboratory at [phone] for redraw instructions. Order Comment: PT WA NTS TO WAIT UNTIL SHE IS TAKEN BACK INTO ER AND THEY START A IV ON HER,KAH, 2100 Result Comment: A he matocrit value greater than 55% may lead to inaccurate results in coagulation testing. Patients having hematocrit values >55% require a special collection tube for coagulation studies. Please contact the laboratory at [phone] for redraw instructions. Performed By: #### C K, PT, BNP, PTT, CBC, BMP, HS TROP #### [facility] [address] Serum or plasma anion gap de terminationOrdered By: Ania Watson on 08-03-2024 Anion gap [Moles/Vol] 20.0 mmol/L High 6.0-15.0 [facility] Comment on above: Order Comment: PT WA NTS TO WAIT UNTIL SHE IS TAKEN BACK INTO ER AND THEY START A IV ON HER,2099 Performed By: #### C K, PT, BNP, PTT, CBC, BMP, HS TROP #### [facility] [address] [place] [address] Sodium [Moles/volume] in Ser um or PlasmaOrdered By: Ania Watson on 08-03-2024 Sodium [Moles/Vol] 134 mmol/L Low 136-145 [facility] Comment on above: Order Comment: PT WA NTS TO WAIT UNTIL SHE IS TAKEN BACK INTO ER AND THEY START A IV ON HER,2099 Performed By: #### C K, PT, BNP, PTT, CBC, BMP, HS TROP #### [facility] [address] [place] [address] Troponin I High Sensitivityo n 08-03-2024 Troponin I High Sensitivity 7.0 pg/mL Normal 0.0-15.0 [facility] Comment on above: Order Comment: PT WA NTS TO WAIT UNTIL SHE IS TAKEN BACK INTO ER AND THEY START A IV ON HER,2099 Result Comment: PERF ORMED BY: [address] [place] [address] PATHOLOGIST PLASTICS SEASONER OPERATOR NAY SARKAR M.D. Performed By: #### C K, PT, BNP, PTT, CBC, BMP, HS TROP #### [address] Troponin I.cardiac [Mass/vol ume] in Serum or Plasma by Detection limit <= 0.01 ng/Ordered By: Ania Watson on 08-03-2024 Troponin I.cardiac DL <= 0.01 ng/mL [Mass/Vol] 7.0 pg/mL 0.0-15.0 [facility] Urea nitrogen [Mass/volume] in Serum or PlasmaOrdered By: Ania Watson on 08-03-2024 Urea nitrogen [Mass/Vol] 20 mg/dL Normal 7-25 [facility] Comment on above: Order Comment: PT WA NTS TO WAIT UNTIL SHE IS TAKEN BACK INTO ER AND THEY START A IV ON HER,KAH, 2100 Performed By: #### C K, PT, BNP, PTT, CBC, BMP, HS TROP #### [facility] [address] B hCG Qualon 08-01-2024 Beta HCG ( test) Ql Negative Normal [facility] Comment on above: Performed By: #### 2 [id number] #### [facility] [address] [place] [address] BMPon 08-01-2024 Anion gap [Moles/Vol] 14 mmol/L Normal 6-16 [facility] Comment on above: Performed By: #### 2 [id number] #### [facility] [address] [place] [address] Calcium [Mass/Vol] 9.7 mg/dL Normal 8.9-11.1 [facility] Comment on above: Performed By: #### 2 997123 #### [facility] [address] [place] [address] Chloride [Moles/Vol] 102 mmol/L Normal 101-111 [facility] Comment on above: Performed By: #### 2 [id number] #### [facility] [address] [place] [address] CO2 [Moles/Vol] 24 mmol/L Normal 21-31 [facility] Comment on above: Performed By: #### 2 570080 #### [facility] [address] [place] [address] Creatinine [Mass/Vol] 0.7 mg/dL Normal 0.5-1.3 [facility] Comment on above: Performed By: #### 2 983084 #### [facility] [address] [place] [address] Glucose [Mass/Vol] 96 mg/dL Normal 55-199 [facility] Comment on above: Performed By: #### 2 241334 #### [facility] [address] [place] [address] Potassium [Moles/Vol] 3.3 mmol/L Low 3.5-5.3 [facility] Comment on above: Performed By: #### 2 531735 #### [facility] [address] [place] [address] Sodium [Moles/Vol] 137 mmol/L Normal 135-145 [facility] Comment on above: Performed By: #### 2 033112 #### [facility] [address] [place] [address] Urea nitrogen [Mass/Vol] 18 mg/dL Normal 5-21 [facility] Comment on above: Performed By: #### 2 530341 #### [facility] [address] [place] [address] Urea nitrogen/Creatinine [Mass ratio] 26 No Units High 10-20 [facility] Comment on above: Performed By: #### 2 [id number] #### [facility] [address] [place] [address] CBC w/ Auto Diffon 4 Basophils/100 WBC (Bld) 0.3 % Normal 0.0-2.0 [facility] Comment on above: Performed By: #### 2 686617 #### [facility] [address] [place] [address] Basophils/Leukocytes Auto (Bld) [Pure # fraction] 0.1 E9/L Normal 0.0-0.2 [facility] Comment on above: Performed By: #### 2 [id number] #### [facility] [address] [place] [address] Eosinophils (Bld) [#/Vol] 0.1 E9/L Normal 0.0-0.5 [facility] Comment on above: Performed By: #### 2 422828 #### [facility] [address] [place] [address] Eosinophils/100 WBC (Bld) 0.4 % Normal 0.0-8.0 [facility] Comment on above: Performed By: #### 2 168841 #### [facility] [address] [place] [address] Erythrocyte distribution width (RBC) [Ratio] 13.3 % Normal 10.9-14.2 [facility] Comment on above: Performed By: #### 2 961618 #### [facility] [address] [place] [address] Hematocrit (Bld) [Volume fraction] 43.9 % Normal 34.0-46.0 [facility] Comment on above: Performed By: #### 2 284037 #### [facility] [address] [place] [address] Hemoglobin (Bld) [Mass/Vol] 14.5 g/dL Normal 12.0-16.0 [facility] Comment on above: Performed By: #### 2 782967 #### [facility] [address] [place] [address] Lymphocytes (Bld) [#/Vol] 2.3 E9/L Normal 1.0-4.0 [facility] Comment on above: Performed By: #### 2 971129 #### [facility] [address] [place] [address] Lymphocytes/100 WBC (Bld) 13.7 % Low 14.0-50.0 [facility] Comment on above: Performed By: #### 2 898883 #### [facility] [address] [place] [address] MCH (RBC) [Entitic mass] 28.3 pg Normal 27.0-34.0 [facility] Comment on above: Performed By: #### 2 621554 #### [facility] [address] [place] [address] MCHC (RBC) [Mass/Vol] 33.0 g/dL Normal 31.4-36.0 [facility] Comment on above: Performed By: #### 2 380549 #### [facility] [address] [place] [address] MCV (RBC) [Entitic vol] 85.8 fL Normal 80.0-100.0 [facility] Comment on above: Performed By: #### 2 447396 #### [facility] [address] [place] [address] Monocytes (Bld) [#/Vol] 1.2 E9/L High 0.2-1.0 [facility] Comment on above: Performed By: #### 2 703140 #### [facility] [address] [place] [address] Neutrophils (Bld) [#/Vol] 13.1 E9/L High 2.0-7.5 [facility] Comment on above: Performed By: #### 2 918036 #### [facility] [address] [place] [address] Neutrophils/100 WBC (Bld) 78.5 % High 36.0-75.0 [facility] Comment on above: Performed By: #### 2 806434 #### [facility] [address] [place] [address] Platelet mean volume (Bld) [Entitic vol] 8.2 fL Normal 6.4-10.8 [facility] Comment on above: Performed By: #### 2 660677 #### [facility] [address] [place] [address] Platelets (Bld) [#/Vol] 246.0 E9/L Normal 150.0-500. 0 [facility] Comment on above: Performed By: #### 2 058422 #### [facility] [address] [place] [address] RBC (Bld) [#/Vol] 5.1 E12/L Normal 4.3-5.9 [facility] Comment on above: Performed By: #### 2 613410 #### [facility] [address] [place] [address] WBC corrected for nucl RBC Auto (Bld) [#/Vol] 16.7 E9/L High 4.0-11.0 [facility] Comment on above: Result Comment: Sarahi pheral smear review performed. Performed By: #### 2 542087 #### [facility] [address] [place] [address] ED Clinical Summaryon 2023 ED Clinical Summary ED Clinical Summary [address] [address] ED Clinical Summary Person Information Name: PILI PARIKH/[facility] Age: 19 Years : 2005 Sex: Female [...] 12:09:48 08/01/2024 12:09:48 08/01/2024 12:09:48 ADDRESS: [address] [facility] [id number] PHYS DOC NOTES: MEDICAL INFORMATION: Prescriptions Given: New Medications [facility]/pharmacy #[id number], [address], [place] [id number], [phone] potassium chloride (potassium chloride 20 mEq ER [...] Follow up: With: Address: When: MODESTA CHAND [address] [place] [phone] Business (1) In 3 days 08/04/2024 Comments: Make sure to fill the prescriptions that was prescribed from [facility]. Fill the new prescription for potassium. Follow-up with your primary doctor as discussed. Return to the emergency room if your vomiting recurs, abdominal pain recurs or any new symptoms. DIAGNOSIS: 1:Vomiting and diarrhea; 2:Hypokalemia; 3:Leukocytosis; Diarrhea, unspecified Normal [facility] ED Note-Physicianon 08-01-20 ED Note-Physician ED Note-Physician Basic Information Time Seen: August Bermudez M.D. 08/01/2024 09:27 Chief Complaint just left [facility], seen multiple times for n/v lightheaded. hx cyclic vomiting, state its not that. has medication at [facility] but wanted to come here [...] any sick contact. The patient was at [facility] and they did send medication to [facility] however she feels she is [...] and Complexity of Problems Differential Diagnosis: [] [facility] Data External documents reviewed: [] My [...] day(s), # 4 tab(s), Refills(s) 0, Pharmacy: [facility]/pharmacy #[id number], 157, cm, 08/01/24 9:34:00 [...] Disposition Dis (more content not included)... Normal [facility] Comment on above: Result Comment: Elec tronically Signed By: August Bermudez M.D.\.br\Date and Time Signed: 08/01/24 11:58 EDT ED Patient Summaryon 024 ED Patient Summary ED Patient Summary [place] [id number] Patient Discharge Instructions Person Information Name: PILI PARIKH Age: 19 Years Arrival Date: 08/01/2024 09:23:00 Discharge Diagnosis: 1:Vomiting and diarrhea; 2:Hypokalemia; 3:Leukocytosis; Diarrhea, unspecified Primary Care Physician: MODESTA CHAND CNP Provider Information Primary Provider: August Bermudez M.D. [employer] Professor:None The exam and treatment you received in the Emergency Department were for an urgent problem and are not intended as complete care. It is important that you follow up with a doctor, nurse practitioner, or physician?s retail sales assistant for ongoing care. If your symptoms [...] Follow-up Instructions: With: Address: When: MODESTA CHAND [address] [place] [phone] Business (1) In 3 days 08/04/2024 Comments: Make sure to fill the prescriptions that was prescribed from [facility]. Fill the new prescription for potassium. Follow-up [...] opioids can be used to help relieve kergqfcw-po-qoluse pain and are often prescribed following a [...] the to (more content not included)... Normal [facility] Hep Func Panelon 08-01-2024 Albumin [Mass/Vol] 5.1 g/dL High 3.3-5.0 [facility] Comment on above: Performed By: #### 2 [id number] #### [facility] [address] [place] [address] Albumin/Globulin (S) [Mass conc ratio] 1.7 Normal 1.1-2.2 [facility] Comment on above: Performed By: #### 2 893131 #### [facility] [address] [place] [address] ALP [Catalytic activity/Vol] 75 Int._Unit/L Normal 21-98 [facility] Comment on above: Performed By: #### 2 130497 #### [facility] [address] [place] [address] ALT No additional P-5'-P [Catalytic activity/Vol] 45 Int._Unit/L Normal 6-46 [facility] Comment on above: Performed By: #### 2 143300 #### [facility] [address] [place] [address] AST [Catalytic activity/Vol] 25 Int._Unit/L Normal 5-43 [facility] Comment on above: Performed By: #### 2 120583 #### [facility] [address] [place] [address] Bilirubin [Mass/Vol] 0.9 mg/dL Normal 0.0-1.1 [facility] Comment on above: Performed By: #### 2 185647 #### [facility] [address] [place] [address] Bilirubin.direct [Mass/Vol] 0.1 mg/dL Normal 0.0-0.4 [facility] Comment on above: Performed By: #### 2 508015 #### [facility] [address] [place] [address] Bilirubin.indirect [Mass or moles/Vol] 0.8 mg/dL Normal 0.1-0.9 [facility] Comment on above: Performed By: #### 2 773679 #### [facility] [address] [place] [address] Globulin (S) [Mass/Vol] 3.0 g/dL Normal 1.4-4.0 [facility] Comment on above: Performed By: #### 2 683512 #### [facility] [address] [place] [address] Protein [Mass/Vol] 8.1 g/dL High 6.0-7.8 [facility] Comment on above: Performed By: #### 2 925437 #### [facility] [address] [place] [address] Lipase Levelon 08-01-2024 Lipase [Catalytic activity/Vol] 27 U/L Normal 13-58 [facility] Comment on above: Performed By: #### 2 239578 #### [facility] [address] [place] [address] Magnesiumon 08-01-2024 Magnesium [Mass/Vol] 2.2 mg/dL Normal 1.3-2.4 [facility] Comment on above: Performed By: #### 2 078858 #### [facility] [address] [place] [address] PT & PTTon 08-01-2024 aPTT Coag (PPP) [Time] 31.2 second(s) Normal 25.1-36.5 [facility] Comment on above: Result Comment: [...] the same coagulation reagent and instrumentation as [facility]. Currently there are no coagulation studies available worldwide for children to 14 days, and no normal ranges. Heparin therapeutic range (represented by Anti-Factor Xa activity of 0.2 - 0.4 U/mL) corresponds to PTT of 56.6 - 109.0 sec. Performed By: #### 1 [id number] #### [facility] [address] [place] [address] INR Coag (PPP) [Relative time] 1.11 {INR} Invalid Interpretation Code [facility] Comment on above: Result Comment: INR results are specifically intended to assess patients stabilized on long-term Anticoagulation therapy suggested INR?s ?Less Intensive Anticoagulation? 2.0 ? 3.0 Conventional Range 3.0 ? 4.5 Performed By: #### 1 [id number] #### [facility] [address] [place] [address] PT Coag (PPP) [Time] 12.5 second(s) Normal 9.4-12.5 [facility] Comment on above: Result Comment: [...] the same coagulation reagent and instrumentation as [facility]. Currently there are no coagulation studies available worldwide for children to 14 days, and no normal ranges. Performed By: #### 1 [id number] #### [facility] [address] [place] [address] Troponin 0 Hr.on 08-01-2024 Troponin HS 5.20 pg/mL Low 10.10-27.1 0 [facility] Comment on above: Result Comment: The 95% CI (Confidence Interval) PPV (Positive Predictive Value) for myocardial infarction in females is 38 pg/mL, in males 51 pg/mL. The results should be used in conjunction with clinical conditions of myocardial infarction. (Access High Sensitivity Troponin I Instructions For Use, Sugar Sundar, June 2018) Performed By: #### 1 [id number] #### [facility] [address] [place] [address] eGFRon 08-01-2024 eGFR 126 mL/min/1.73 m2 Normal >=59 [facility] Comment on above: Order Comment: Order added by Discern Expert. Performed By: #### 1 [id number] #### [facility] [address] [place] [address] BMPon 07-30-2024 Anion gap [Moles/Vol] 13 mmol/L Normal 6-16 [facility] Comment on above: Performed By: #### 2 785527 #### [facility] [address] [place] [address] Calcium [Mass/Vol] 9.4 mg/dL Normal 8.9-11.1 [facility] Comment on above: Performed By: #### 2 591356 #### [facility] [address] [place] [address] Chloride [Moles/Vol] 107 mmol/L Normal 101-111 [facility] Comment on above: Performed By: #### 2 282261 #### [facility] [address] [place] [address] CO2 [Moles/Vol] 25 mmol/L Normal 21-31 [facility] Comment on above: Performed By: #### 2 227470 #### [facility] [address] [place] [address] Creatinine [Mass/Vol] 0.8 mg/dL Normal 0.5-1.3 [facility] Comment on above: Performed By: #### 2 483320 #### [facility] [address] [place] [address] Glucose [Mass/Vol] 89 mg/dL Normal 55-199 [facility] Comment on above: Performed By: #### 2 822311 #### [facility] [address] [place] [address] Potassium [Moles/Vol] 3.6 mmol/L Normal 3.5-5.3 [facility] Comment on above: Performed By: #### 2 724390 #### [facility] [address] [place] [address] Sodium [Moles/Vol] 141 mmol/L Normal 135-145 [facility] Comment on above: Performed By: #### 2 341443 #### [facility] [address] [place] [address] Urea nitrogen [Mass/Vol] 19 mg/dL Normal 5-21 [facility] Comment on above: Performed By: #### 2 740167 #### [facility] [address] [place] [address] Urea nitrogen/Creatinine [Mass ratio] 24 No Units High 10-20 [facility] Comment on above: Performed By: #### 2 624971 #### [facility] [address] [place] [address] CBC w/ Auto Diffon 4 Basophils/100 WBC (Bld) 0.4 % Normal 0.0-2.0 [facility] Comment on above: Performed By: #### 2 290456 #### [facility] [address] [place] [address] Basophils/Leukocytes Auto (Bld) [Pure # fraction] 0.1 E9/L Normal 0.0-0.2 [facility] Comment on above: Performed By: #### 2 367326 #### [facility] [address] [place] [address] Eosinophils (Bld) [#/Vol] 0.1 E9/L Normal 0.0-0.5 [facility] Comment on above: Performed By: #### 2 851744 #### [facility] [address] [place] [address] Eosinophils/100 WBC (Bld) 0.5 % Normal 0.0-8.0 [facility] Comment on above: Performed By: #### 2 154669 #### [facility] [address] [place] [address] Erythrocyte distribution width (RBC) [Ratio] 13.2 % Normal 10.9-14.2 [facility] Comment on above: Performed By: #### 2 255802 #### [facility] [address] [place] [address] Hematocrit (Bld) [Volume fraction] 39.6 % Normal 34.0-46.0 [facility] Comment on above: Performed By: #### 2 786232 #### [facility] [address] [place] [address] Hemoglobin (Bld) [Mass/Vol] 13.7 g/dL Normal 12.0-16.0 [facility] Comment on above: Performed By: #### 2 981861 #### [facility] [address] [place] [address] Lymphocytes (Bld) [#/Vol] 2.3 E9/L Normal 1.0-4.0 [facility] Comment on above: Performed By: #### 2 820452 #### [facility] [address] [place] [address] Lymphocytes/100 WBC (Bld) 14.1 % Normal 14.0-50.0 [facility] Comment on above: Performed By: #### 2 345932 #### [facility] [address] [place] [address] MCH (RBC) [Entitic mass] 29.4 pg Normal 27.0-34.0 [facility] Comment on above: Performed By: #### 2 422745 #### [facility] [address] [place] [address] MCHC (RBC) [Mass/Vol] 34.5 g/dL Normal 31.4-36.0 [facility] Comment on above: Performed By: #### 2 308051 #### [facility] [address] [place] [address] MCV (RBC) [Entitic vol] 85.3 fL Normal 80.0-100.0 [facility] Comment on above: Performed By: #### 2 724655 #### [facility] [address] [place] [address] Monocytes (Bld) [#/Vol] 1.2 E9/L High 0.2-1.0 [facility] Comment on above: Performed By: #### 2 705045 #### [facility] [address] [place] [address] Neutrophils (Bld) [#/Vol] 12.6 E9/L High 2.0-7.5 [facility] Comment on above: Performed By: #### 2 233175 #### [facility] [address] [place] [address] Neutrophils/100 WBC (Bld) 77.5 % High 36.0-75.0 [facility] Comment on above: Performed By: #### 2 842177 #### [facility] [address] [place] [address] Platelet 260.0 E9/L Normal 150.0-500. 0 [facility] Comment on above: Performed By: #### 2 951798 #### [facility] [address] [place] [address] Platelet mean volume (Bld) [Entitic vol] 8.1 fL Normal 6.4-10.8 [facility] Comment on above: Performed By: #### 2 280756 #### [facility] [address] [place] [address] RBC (Bld) [#/Vol] 4.7 E12/L Normal 4.3-5.9 [facility] Comment on above: Performed By: #### 2 258743 #### [facility] [address] [place] [address] WBC corrected for nucl RBC Auto (Bld) [#/Vol] 16.2 E9/L High 4.0-11.0 [facility] Comment on above: Performed By: #### 2 950557 #### [facility] [address] [place] [address] CHEMISTRYOrdered By: Manish carpio on 07-30-2024 Albumin [...] 2023 ED Clinical Summary ED Clinical Summary [place] [id number] ED Clinical Summary Person Information [facility] Age[facility] 19 Years : 2005 [...] 07/30/2024 22:55:49 07/30/2024 22:55:49 07/30/2024 22:55:49 ADDRESS: [address] [place] [id number] PHYS DOC NOTES: MEDICAL INFORMATION: Prescriptions Given: New Medications [id number], [address], [place] [id number], [phone] ondansetron (Zofran ODT 4 mg Tab-Dis) 1 Tablets By Mouth every 8 hours as needed Nausea/Vomiting. Refills: 0. Medications to Continue Taking That Have Changed [id number], [address], [place] [id number], [phone] START: promethazine (Phenergan 12.5 mg Supp) 1 [...] Follow up: With: Address: When: [place] [address] Business (1) In 3 days 08/02/2024 DIAGNOSIS: AP (abdominal pain); N&V (nausea and vomiting) Normal [facility] ED Note-Physicianon 07-30-20 ED Note-Physician ED Note-Physician Basic Information Time Seen: Griselda Dustin RAHMANRossy 07/30/2024 19:28 Chief Complaint pt. c/o abd. [...] and Complexity of Problems Differential Diagnosis: [] [facility] Data External documents reviewed: N/A My [...] Nausea/Vomiting, # 16 tab(s), Refills(s) 0, Pharmacy: [id number], 157, cm, 07/30/24 19:37:00 EDT, Height/Length Dosing, 96.1, kg, 07/30/24 19:37:00 EDT, Weight Dosing promethazine, 12.5 mg = 1 tab(s), Oral, q8hr, PRN as needed for nausea/vomiting, second line, # 10 tab(s), Refills(s) 0, [id number] 157, cm, 07/30/24 19:37:00 EDT, Height/Length Dosing, 96.1, kg, 07/30/24 19:37:00 EDT, Weight Dosing promethazine, 12.5 mg = 1 supp, Rectal, q8hr, PRN as needed for nausea/vomiting, 3rd line, # 6 EA, Refills(s) 0, [id number] 157, cm, 07/30/24 19:37:00 EDT, [...] Level Saline Lock Insert Medications Administered Given [id number] [F] 1000 mg + GenDil 100 mL, IV Piggyback famotidine 10 mg/mL IV Lisa, 20 mg, IV Push NS 1000 ml Bolus, 1000 mL, IV [id number] [F] 12.5 mg + Sodium Chloride 0.9% IV Lisa 50 mL [F] 50 mL, IV Piggyback Disposition Plan Discharge Prescription List Prescriptions Phenergan 12.5 mg Supp, 12.5 mg= 1 supp, Rectal, q8hr, PRN promethazine 12.5 mg oral tablet, 12.5 mg= 1 tab(s), Oral, q8hr, PRN Zofran ODT 4 mg Tab-Dis, 4 mg= 1 tab(s), Or (more content not included)... Normal [facility] Comment on above: Result Comment: Elec tronically Signed By: Dustin Villalobos DO\.br\Date and Time Signed: 07/30/24 22:50 EDT ED Patient Summaryon 024 ED Patient Summary ED Patient Summary [place] [id number] Patient Discharge Instructions Person Information Name: PILI PARIKH Age: 19 Years Arrival Date: 07/30/2024 19:26:13 Discharge Diagnosis: AP (abdominal pain); N&V (nausea and vomiting) Primary Care Physician: MODESTA ARCHIBALD Provider Information Primary Provider: Dustin Villalobos DO [employer] Professor:None The exam and treatment you received in the Emergency Department were for an urgent problem and are not intended as complete care. It is important that you follow up with a doctor, nurse practitioner, or physician?s retail sales assistant for ongoing care. If your symptoms [...] When: FAMILIA CHAND [facility] [address] [address] Business (1) In 3 days 08/02/2024 In the event that this physician does not participate in your insurance network, please consult with your insurance company to find a nearby participating provider. Patient Education Materials: Nausea and Vomiting, Adult A MESSAGE TO ALL PATIENTS REGARDING OPIOIDS PRESCRIPTION OPIOIDS: WHAT YOU NEED TO KNOW Prescription opioids can be used to help relieve iggpconj-me-jcjnfv pain and are often prescribed following a [...] be struggling with addiction, tell your health child care teacher and ask for guidance or call [facility]?S [facility] (more content not included)... Normal [facility] HEMATOLOGYOrdered By: SYSTEM SYSTEM on [...] 07-30-2024 Albumin [Mass/Vol] 4.7 g/dL Normal 3.3-5.0 [facility] Comment on above: Performed By: #### 2 466422 #### [facility] [address] [place] [address] Albumin/Globulin (S) [Mass conc ratio] 1.7 Normal 1.1-2.2 [facility] Comment on above: Performed By: #### 2 727356 #### [facility] [address] [place] [address] ALP [Catalytic activity/Vol] 73 Int._Unit/L Normal 21-98 [facility] Comment on above: Performed By: #### 2 111133 #### [facility] [address] [place] [address] ALT No additional P-5'-P [Catalytic activity/Vol] 46 Int._Unit/L Normal 6-46 [facility] Comment on above: Performed By: #### 2 243957 #### [facility] [address] [place] [address] AST [Catalytic activity/Vol] 24 Int._Unit/L Normal 5-43 [facility] Comment on above: Performed By: #### 2 817153 #### [facility] [address] [place] [address] Bilirubin [Mass/Vol] 0.7 mg/dL Normal 0.0-1.1 [facility] Comment on above: Performed By: #### 2 590922 #### [facility] [address] [place] [address] Bilirubin.direct [Mass/Vol] 0.1 mg/dL Normal 0.0-0.4 [facility] Comment on above: Performed By: #### 2 215243 #### [facility] [address] [place] [address] Bilirubin.indirect [Mass or moles/Vol] 0.6 mg/dL Normal 0.1-0.9 [facility] Comment on above: Performed By: #### 2 495265 #### [facility] [address] [place] [address] Globulin (S) [Mass/Vol] 2.8 g/dL Normal 1.4-4.0 [facility] Comment on above: Performed By: #### 2 276011 #### [facility] [address] [place] [address] Protein [Mass/Vol] 7.5 g/dL Normal 6.0-7.8 [facility] Comment on above: Performed By: #### 2 695564 #### [facility] [address] [place] [address] Lipase Levelon 07-30-2024 Lipase [Catalytic activity/Vol] 10 U/L Low 13-58 [facility] Comment on above: Performed By: #### 2 302910 #### [facility] [address] [place] [address] Magnesiumon 07-30-2024 Magnesium [Mass/Vol] 2.2 mg/dL Normal 1.3-2.4 [facility] Comment on above: Performed By: #### 2 896365 #### [facility] [address] [place] [address] eGFRon 07-30-2024 eGFR 108 mL/min/1.73 m2 Normal >=59 [facility] Comment on above: Order Comment: Order added by Discern Expert. Performed By: #### 1 [id number] #### [facility] [address] [place] [address] Alanine aminotransferase [En zymatic activity/volume] in Serum or PlasmaOrdered By: Femi Benitez on 03-18-2024 ALT [Catalytic activity/Vol] 25 U/L 7-52 [facility] Albumin [Mass/volume] in Ser um or Plasma by Bromocresol green (BCG) dye binding methoOrdered By: Femi Benitez on 03-18-2024 Albumin BCG dye [Mass/Vol] 5.3 g/dL 3.5-5.7 [facility] Alkaline phosphatase [Enzyma tic activity/volume] in Serum or PlasmaOrdered By: Femi Benitez on 03-18-2024 ALP [Catalytic activity/Vol] 82 U/L 34-104 [facility] Aspartate aminotransferase [ Enzymatic activity/volume] in Serum or PlasmaOrdered By: Femi Benitez on 03-18-2024 AST [Catalytic activity/Vol] 23 U/L 13-39 [facility] Basophils Auto (Bld) [#/Vol] Ordered By: Femi Benitez on 03-18-2024 Basophils (Bld) [#/Vol] 0.1 10*3/uL 0.0-0.2 [facility] Basophils/100 WBC Auto (Bld) Ordered By: Femi Benitez on 03-18-2024 Basophils/100 WBC (Bld) 0.4 % . [facility] Bilirubin.total [Mass/volume ] in Serum or PlasmaOrdered By: Femi Benitez on 03-18-2024 Bilirubin [Mass/Vol] 0.9 mg/dL 0.3-1.0 [facility] Calcium [Mass/volume] in Ser um or PlasmaOrdered By: Femi Benitez on 03-18-2024 Calcium [Mass/Vol] 10.4 mg/dL 8.6-10.3 [facility] Carbon dioxide, total [Moles /volume] in Serum or PlasmaOrdered By: Femi Benitez on 03-18-2024 CO2 [Moles/Vol] 18.4 mmol/L 21.0-31.0 [facility] Chloride [Moles/volume] in S [place] or PlasmaOrdered By: Femi Benitez on 03-18-2024 Chloride [Moles/Vol] 94 mmol/L 98-107 [facility] Choriogonadotropin.beta subu nit [Units/volume] in Serum or PlasmaOrdered By: Femi Benitez on 03-18-2024 HCG.beta subunit Qn Negative [facility] Creatinine [Mass/volume] in Serum or PlasmaOrdered By: Femi Benitez on 03-18-2024 Creatinine [Mass/Vol] 0.80 mg/dL 0.60-1.20 [facility] Eosinophils Auto (Bld) [#/Vo l]Ordered By: Femi Benitez on 03-18-2024 Eosinophils (Bld) [#/Vol] 0.4 10*3/uL 0.0-0.45 [facility] Eosinophils/100 WBC Auto (Bl d)Ordered By: Femi Benitez on 03-18-2024 Eosinophils/100 WBC (Bld) 2.3 % . [facility] Erythrocyte distribution wid th Auto (RBC) [Ratio]Ordered By: Femi Benitez on 03-18-2024 Erythrocyte distribution width (RBC) [Ratio] 14.3 % 11.9-15.3 [facility] Globulin Calc (S) [Mass/Vol] Ordered By: Femi Benitez on 03-18-2024 Globulin (S) [Mass/Vol] 2.8 g/dL [facility] Glucose [Mass/volume] in Ser um or PlasmaOrdered By: Femi Benitez on 03-18-2024 Glucose [Mass/Vol] 95 mg/dL 70-100 [facility] Comment on above: ADA recommended refe rence rangeRandom Glucose Reference Range is dependent on time and content of last meal. Glucose of more than 200 mg/dL in a nonstressed, ambulatory subject supports the diagnosis of Diabetes Mellitus. Hematocrit Auto (Bld) [Volum e fraction]Ordered By: Femi Benitez on 03-18-2024 Hematocrit (Bld) [Volume fraction] 48.2 % 34.0-46.4 [facility] Hemoglobin [Mass/volume] in BloodOrdered By: Femi Benitez on 03-18-2024 Hemoglobin (Bld) [Mass/Vol] 16.3 g/dL 11.8-15.4 [facility] Leukocytes [#/volume] correc venkata for nucleated erythrocytes in Blood by Automated counOrdered By: Femi Benitez on 03-18-2024 WBC corrected for nucl RBC Auto (Bld) [#/Vol] 18.5 10*3/uL 3.8-11.6 [facility] Lymphocytes Auto (Bld) [#/Vo l]Ordered By: Femi Benitez on 03-18-2024 Lymphocytes (Bld) [#/Vol] 3.9 10*3/uL 1.00-4.8 [facility] Lymphocytes/100 WBC Auto (Bl d)Ordered By: Femi Benitez on 03-18-2024 Lymphocytes/100 WBC (Bld) 20.9 % . [facility] MCH Auto (RBC) [Entitic mass ]Ordered By: Femi Benitez on 03-18-2024 MCH (RBC) [Entitic mass] 28.2 pg 24.7-34.3 [facility] MCHC Auto (RBC) [Mass/Vol]Or dered By: Femi Benitez on 03-18-2024 MCHC (RBC) [Mass/Vol] 33.9 g/dL 32.0-35.0 [facility] MCV Auto (RBC) [Entitic vol] Ordered By: Femi Benitez on 03-18-2024 MCV (RBC) [Entitic vol] 83.2 fL 80-100 [facility] Monocyte distribution width [Entitic volume] in Blood by AutomatedOrdered By: Femi Benitez on 03-18-2024 Monocyte distribution width Auto (Bld) [Entitic vol] 16.34 % 0.00-20.00 [facility] Monocytes Auto (Bld) [#/Vol] Ordered By: Femi Benitez on 03-18-2024 Monocytes (Bld) [#/Vol] 1.4 10*3/uL 0.0-0.8 [facility] Monocytes/100 WBC Auto (Bld) Ordered By: eFmi Benitez on 03-18-2024 Monocytes/100 WBC (Bld) 7.6 % . [facility] Neutrophils Auto (Bld) [#/Vo l]Ordered By: Femi Benitez on 03-18-2024 Neutrophils (Bld) [#/Vol] 12.7 10*3/uL 1.8-7.7 [facility] Neutrophils/100 WBC Auto (Bl d)Ordered By: Femi Benitez on 03-18-2024 Neutrophils/100 WBC (Bld) 68.8 % . [facility] No Panel InformationOrdered By: Femi Benitez on 03-18-2024 Estimated GFR (CKD-EPI) > 60.0 mL/Min [facility] Creatinine Clearance (Chem 120.98 [facility] Nucleated erythrocytes [Pres ence] in Blood by Automated countOrdered By: Femi Benitez on 03-18-2024 Nucleated RBC Auto Ql (Bld) 0.1 /100{WBC} 0-0.5 [facility] Platelet mean volume Auto (B ld) [Entitic vol]Ordered By: Femi Benitez on 03-18-2024 Platelet mean volume (Bld) [Entitic vol] 8.5 fL 6.3-10.7 [facility] Platelets Auto (Bld) [#/Vol] Ordered By: Femi Benitez on 03-18-2024 Platelets (Bld) [#/Vol] 358 10*3/uL 150-450 [facility] Potassium [Moles/volume] in Serum or PlasmaOrdered By: Femi Benitez on 03-18-2024 Potassium [Moles/Vol] See comment 3.5-5.1 [facility] Comment on above: Specimen hemolyzed, redraw requestedResults calledat 2349 on 03/18/24 Protein [Mass/volume] in Ser um or PlasmaOrdered By: Femi Benitez on 03-18-2024 Protein [Mass/Vol] 8.1 g/dL 6.4-8.9 [facility] RBC Auto (Bld) [#/Vol]Ordere d By: Femi Benitez on 03-18-2024 RBC (Bld) [#/Vol] 5.79 10*6/uL 3.60-5.00 [facility] Serum or plasma albumin/glob ulin mass ratioOrdered By: Femi Benitez on 03-18-2024 Albumin/Globulin [Mass ratio] 1.9 {ratio} [facility] Serum or plasma anion gap de terminationOrdered By: Femi Benitez on 03-18-2024 Anion gap [Moles/Vol] TNP [facility] Comment on above: Test not performed Sodium [Moles/volume] in Ser um or PlasmaOrdered By: Femi Benitez on 03-18-2024 Sodium [Moles/Vol] 134 mmol/L 136-145 [facility] Urea nitrogen [Mass/volume] in Serum or PlasmaOrdered By: Femi Benitez on 03-18-2024 Urea nitrogen [Mass/Vol] 27 mg/dL 7-25 [facility] WBC Auto (Bld) [#/Vol]Ordere d By: Femi Benitez on 03-18-2024 WBC (Bld) [#/Vol] 18.5 10*3/uL 3.8-11.6 [facility] CBC w/ Auto Diffon Basophils/100 WBC (Bld) 0.4 % Normal 0.0-2.0 [facility] Comment on above: Performed By: #### 2 278076, 00417070, 4146719, 7153419 ####[facility] [address] [place] [address] Basophils/Leukocytes Auto (Bld) [Pure # fraction] 0.1 E9/L Normal 0.0-0.2 [facility] Comment on above: Performed By: #### 2 306575, 71077341, 5715745, 0465627 ####[facility] [address] [place] [address] Eosinophils (Bld) [#/Vol] 0.0 E9/L Normal 0.0-0.5 [facility] Comment on above: Performed By: #### 2 858133, 71187505, 1817271, 2915549 ####[facility] [address] [place] [address] Eosinophils/100 WBC (Bld) 0.3 % Normal 0.0-8.0 [facility] Comment on above: Performed By: #### 2 387557, 04327548, 2664206, 2040748 ####[place] [address] [place] [address] Erythrocyte distribution width (RBC) [Ratio] 14.1 % Normal 10.9-14.2 [facility] Comment on above: Performed By: #### 2 006596, 34397946, 2188504, 6233472 ####[address] [address] Hematocrit (Bld) [Volume fraction] 44.0 % Normal 34.0-46.0 [facility] Comment on above: Performed By: #### 2 180758, 43729110, 0079027, 6788055 ####[address] [address] Hemoglobin (Bld) [Mass/Vol] 14.4 g/dL Normal 12.0-16.0 [facility] Comment on above: Performed By: #### 2 818645, 84301333, 5413046, 3475193 ####[address] [address] Lymphocytes (Bld) [#/Vol] 2.2 E9/L Normal 1.0-4.0 [facility] Comment on above: Performed By: #### 2 565763, 28310251, 2621110, 1979957 ####[address] [address] Lymphocytes/100 WBC (Bld) 15.8 % Normal 14.0-50.0 [facility] Comment on above: Performed By: #### 2 591163, 06396909, 7586641, 0619412 ####[address] [address] MCH (RBC) [Entitic mass] 27.8 pg Normal 27.0-34.0 [facility] Comment on above: Performed By: #### 2 589802, 97750556, 3611098, 0423393 ####[address] [address] MCHC (RBC) [Mass/Vol] 32.6 g/dL Normal 31.4-36.0 [facility] Comment on above: Performed By: #### 2 859313, 41696452, 9706755, 4398847 ####[facility] [address] [place] [address] MCV (RBC) [Entitic vol] 85.2 fL Normal 80.0-100.0 [facility] Comment on above: Performed By: #### 2 461331, 67244466, 6436092, 2721537 ####[address] [address] Monocytes (Bld) [#/Vol] 1.1 E9/L High 0.2-1.0 [facility] Comment on above: Performed By: #### 2 740897, 28403595, 1940609, 4408997 ####[address] [address] Neutrophils (Bld) [#/Vol] 10.6 E9/L High 2.0-7.5 [facility] Comment on above: Performed By: #### 2 411013, 57550008, 9702422, 4666745 ####[address] [address] Neutrophils/100 WBC (Bld) 75.9 % High 36.0-75.0 [facility] Comment on above: Performed By: #### 2 659539, 95135679, 3590984, 3204156 ####[address] [address] Platelet mean volume (Bld) [Entitic vol] 8.4 fL Normal 6.4-10.8 [facility] Comment on above: Performed By: #### 2 636798, 19185556, 5790609, 7152342 ####[address] [address] Platelets (Bld) [#/Vol] 276.0 E9/L Normal 150.0-500. 0 [facility] Comment on above: Performed By: #### 2 148326, 05121212, 3975532, 1325359 ####[facility] [address] [place] [address] RBC (Bld) [#/Vol] 5.2 E12/L Normal 4.3-5.9 [facility] Comment on above: Performed By: #### 2 048366, 29334246, 6051502, 3609358 ####[facility] [address] [place] [address] WBC corrected for nucl RBC Auto (Bld) [#/Vol] 14.0 E9/L High 4.0-11.0 [facility] Comment on above: Performed By: #### 2 989066, 10925462, 2923040, 3922957 ####[facility] [address] [place] [address] CHEMISTRYOrdered By: SYSTEM SYSTEM on 03-15-2024 Albumin [...] 03-15-2024 Chloride [Moles/Vol] 99 mmol/L Low 101-111 [facility] Comment on above: Performed By: #### 2 507776, 91014395, 5866754, 9107272 ####[facility] [address] [place] [address] Potassium [Moles/Vol] 3.3 mmol/L Low 3.5-5.3 [facility] Comment on above: Performed By: #### 2 744339, 96006437, 1795021, 2293645 ####[facility] [address] [place] [address] Sodium [Moles/Vol] 137 mmol/L Normal 135-145 [facility] Comment on above: Performed By: #### 2 056055, 81529360, 4145401, 0838373 ####[facility] [address] [place] [address] Anion gap [Moles/Vol] 22 mmol/L High 6-16 [facility] Comment on above: Performed By: #### 2 719647, 45146714, 6511212, 2303066 ####[address] [address] CO2 [Moles/Vol] 19 mmol/L Low 21-31 [facility] Comment on above: Performed By: #### 2 682832, 41473364, 8290442, 3235647 ####[address] [address] Albumin [Mass/Vol] 5.0 g/dL Normal 3.3-5.0 [facility] Comment on above: Performed By: #### 2 607067, 57948846, 9737573, 4904044 ####[address] [address] Albumin/Globulin (S) [Mass conc ratio] 1.8 Normal 1.1-2.2 [facility] Comment on above: Performed By: #### 2 551225, 39508307, 7776808, 7267994 ####[address] [address] ALP [Catalytic activity/Vol] 69 Int._Unit/L Normal 21-98 [facility] Comment on above: Performed By: #### 2 122395, 15538866, 4418671, 6167566 ####[address] [address] ALT No additional P-5'-P [Catalytic activity/Vol] 31 Int._Unit/L Normal 6-46 [facility] Comment on above: Performed By: #### 2 895422, 08196572, 6262618, 7063555 ####[address] [address] AST [Catalytic activity/Vol] 19 Int._Unit/L Normal 5-43 [facility] Comment on above: Performed By: #### 2 706405, 86051328, 2216772, 4747559 ####[address] [place] [address] Bilirubin [Mass/Vol] 0.8 mg/dL Normal 0.0-1.1 [facility] Comment on above: Performed By: #### 2 324831, 31989160, 6606098, 4810397 ####[facility] [address] [place] [address] Calcium [Mass/Vol] 10.4 mg/dL Normal 8.9-11.1 [facility] Comment on above: Performed By: #### 2 915966, 08176586, 9462586, 1954914 ####[facility] [address] [place] [address] Creatinine [Mass/Vol] 0.8 mg/dL Normal 0.5-1.3 [facility] Comment on above: Performed By: #### 2 983726, 16276706, 9248065, 3935263 ####[facility] [address] [place] [address] Globulin (S) [Mass/Vol] 2.8 g/dL Normal 1.4-4.0 [facility] Comment on above: Performed By: #### 2 122206, 29247269, 0960000, 7099360 ####[facility] [address] [place] [address] Glucose [Mass/Vol] 86 mg/dL Normal 55-199 [facility] Comment on above: Performed By: #### 2 495221, 04492488, 2368543, 8199119 ####[facility] [address] [place] [address] Protein [Mass/Vol] 7.8 g/dL Normal 6.0-7.8 [facility] Comment on above: Performed By: #### 2 962463, 20024758, 7848542, 6588950 ####[facility] [address] [place] [address] Urea nitrogen [Mass/Vol] 24 mg/dL High 5-21 [facility] Comment on above: Performed By: #### 2 976883, 43413582, 7260585, 4786624 ####[facility] [address] [place] [address] Urea nitrogen/Creatinine [Mass ratio] 30 No Units High 10-20 [facility] Comment on above: Performed By: #### 2 721919, 42906374, 3291777, 8095311 ####[facility] [address] [place] [address] CT Chest w/ Contraston 03-15 CT Chest [...] 300 Contrast amount in ml's: 100 Normal [facility] Consent for Treatmenton 02-26 Consent for Treatment [id number]#1.00TIFF Normal [facility] Discharge Instructionson Discharge Instructions [id number] Normal [facility] ED Clinical Summaryon 2023 ED Clinical Summary (Inserted Image. Vesta ble to display) [place] [id number] ED Clinical Summary Person Information Name: PILI PARIKH/[facility] Age: 19 Years : 2005 Sex: Female [...] 03/15/2024 13:49:40 03/15/2024 13:49:40 03/15/2024 13:49:40 ADDRESS: [address] [place] [phone] PHYS DOC NOTES: MEDICAL INFORMATION: Prescriptions Given: Medications to Continue with No Changes Other Medications acetaminophen-hydrocodone (Talcott 325 mg-5 mg oral tablet) 1 Tablets [...] symptoms. DIAGNOSIS: 1:Nausea and vomiting; 2:Pneumomediastinum Normal [facility] ED Note-Physicianon 03-15-20 24 ED Note-Physician Basic Information Time Seen: Ebony [...] and Complexity of Problems Differential Diagnosis: [] [facility] Data External documents reviewed: [] My [...] Return to (more content not included)... Normal [facility] Comment on above: Result Comment: Elec tronically Signed By: August Bermudez M.D..tamika\Date and Time Signed: 03/15/24 16:57 EDT [...] added (diluted fruit juice). ? Eat bland, caoi-nt-pouwcz foods in small amounts as you are able. These foods include bananas, applesauce, rice, lean meats, toast, and crackers. ? Avoid fluids that contain a lot of sugar or caffeine, such as energy drinks, sports drinks, and soda. ? Avoid alcohol. ? Avoid spicy or fatty foods. General instructions ? Take gofi-plw-fqofget and prescription medicines only as told by your health care provider. ? Drink enough fluid to keep your urine pale yellow. ? Wash your hands often using soap and water for at least 20 seconds. If soap and water are not available, use hand transfer and pumphouse operator chief. ? Make sure that everyone in your [...] and drinking to prevent dehydration. ? Take zzax-bri-wfwdqtq and prescription medicines only as told by [...] provider. Document Revised: 05/21/2022 Document Reviewed: 05/21/2022 [facility] Patient Education ? 2022 [employer]. Radiology Pneumomediastinum Pneumomediastinum is the presence of [...] marijuana. Spontane (more content not included)... Normal [facility] ED Patient Summaryon 024 ED Patient Summary (Inserted Image. Vesta ble to display) [address] [address] Patient Discharge Instructions Person Information Name: PILI PARIKH Age: 19 Years Arrival Date: 03/15/2024 10:32:10 Discharge Diagnosis: 1:Nausea and vomiting; 2:Pneumomediastinum Primary Care Physician: MODESTA ARCHIBALD Provider Information Primary Provider: August Bermudez M.D. [employer] Professor:None The exam and treatment you received in the Emergency Department were for an urgent problem and are not intended as complete care. It is important that you follow up with a doctor, nurse practitioner, or physician?s retail sales assistant for ongoing care. If your symptoms [...] opioids can be used to help relieve qtehpyeh-vh-jzaeqo pain and are often prescribed following a [...] be strugg (more content not included)... Normal [facility] HEMATOLOGYOrdered By: SYSTEM SYSTEM on [...] 03-15-2024 Magnesium [Mass/Vol] 2.2 mg/dL Normal 1.3-2.4 [facility] Comment on above: Performed By: #### 2 190293, 47417084, 4246047, 7803431 ####[facility] [address] [place] [address] eGFRon 03-15-2024 eGFR 108 mL/min/1.73 m2 Normal >=59 [facility] Comment on above: Order Comment: Order added by Discern Expert. Performed By: #### 2 665456, 42186291, 2384846, 4485161 ####[facility] [address] [place] [address] CT Abdomen/Pelvis w/ Contras ton 03-14-2024 CT [...] Contrast amount in ml's: 130 Normal [facility] CT Chest w/ Contraston 03-14 [...] 300 Contrast amount in ml's: 130 Normal [facility] CT Head or Brain w/o [...] M.D. Transcribed by: KIRA Technologist: RAVEN Normal [facility] CT Spine Cervical w/o Contra [...] M.D. Transcribed by: KIRA Technologist: RAVEN Normal [facility] EMS Documentationon 03-14-20 EMS Documentation Please click on link to see report Normal [facility] Comment on above: Result Comment: [...] mGy = na DAP = na Normal [facility] ABO/Rhon 03-13-2024 ABO/Rh Positive Invalid Interpretation Code [facility] Comment on above: Performed By: #### 2 508178, 59169051, 05464904, 06796922 ####[facility] [address] [place] [address] ABO/Rh History Checkon 03-13 ABO/Rh History Check Patient discharged prior Normal [facility] Comment on above: Performed By: #### 2 954931, 65794986, 13393117, 10176174 ####[facility] [address] [place] [address] ABSCon 03-13-2024 ABSC Gel Interp Negative Normal [facility] Comment on above: Performed By: #### 2 954634, 70027386, 21231479, 19245213 ####[facility] [address] [place] [address] B hCG Qualon 03-13-2024 Beta HCG ( test) Ql Negative Normal [facility] Comment on above: Performed By: #### 2 0000145, 4252390, 7899895, 2320544, 7536577, 67468830, 37744317, 4763573, 0775206 ####[facility] [address] [place] [address] BLOOD BANKOrdered By: Scarlet Lindquist on 03-13-2024 ABO/Rh Interp Positive Invalid Interpretation Code [facility] BB Subsection ABSC Gel Interp Negative (03/13/24 6:53 PM) Normal [facility] BB Subsection BMPon 03-13-2024 Anion gap [Moles/Vol] 16 mmol/L Normal 05-13 [facility] Comment on above: Performed By: #### 2 0646589, 1255004, 5259798, 7579673, 1343247, 54527814, 03850349, 3083583, 1813842 ####[facility] [address] [place] [address] Calcium [Mass/Vol] 10.8 mg/dL Normal 8.9-11.1 [facility] Comment on above: Performed By: #### 2 7585125, 5780305, 1157996, 5524595, 4695738, 50307617, 19207565, 6285303, 1055744 ####[facility] [address] [place] [address] Chloride [Moles/Vol] 105 mmol/L Normal 101-111 [facility] Comment on above: Performed By: #### 2 4598263, 7106153, 9335681, 0965356, 0626888, 37789657, 08841757, 7794822, 5989553 ####[facility] [address] [place] [address] CO2 [Moles/Vol] 25 mmol/L Normal 21-31 [facility] Comment on above: Performed By: #### 2 4069946, 2918108, 0083597, 1274497, 3632063, 56135672, 83642043, 0471514, 4440276 ####[facility] [address] [place] [address] Creatinine [Mass/Vol] 0.9 mg/dL Normal 0.5-1.3 [facility] Comment on above: Performed By: #### 2 0848839, 5650892, 5364341, 6129071, 7842022, 76096172, 61465492, 0178961, 4138477 ####[facility] [address] [place] [address] Glucose [Mass/Vol] 100 mg/dL Normal 55-199 [facility] Comment on above: Performed By: #### 2 0315899, 9925390, 5925739, 0966221, 4380193, 98795856, 22085898, 9357801, 1166316 ####[facility] [address] [place] [address] Potassium [Moles/Vol] 3.3 mmol/L Low 3.5-5.3 [facility] Comment on above: Performed By: #### 2 7945215, 8701944, 6374188, 0620480, 8675837, 75259511, 49696444, 4916106, 3746038 ####[facility] [address] [place] [address] Sodium [Moles/Vol] 143 mmol/L Normal 135-145 [facility] Comment on above: Performed By: #### 2 4571529, 6535496, 2483373, 9867071, 7784249, 61998006, 11767813, 9047724, 1073229 ####[facility] [address] [place] [address] Urea nitrogen [Mass/Vol] 24 mg/dL High 5-21 [facility] Comment on above: Performed By: #### 2 5491660, 0899021, 8616636, 8567208, 3011325, 37712537, 09362171, 7554939, 9178109 ####[facility] [address] [place] [address] Urea nitrogen/Creatinine [Mass ratio] 27 No Units High 10-20 [facility] Comment on above: Performed By: #### 2 9490757, 4466221, 1219507, 7319135, 4851104, 27362871, 89916402, 8943674, 2135620 ####[facility] [address] [place] [address] Blood Bank ID#on 03-13-2024 BBID# [id number] Invalid Interpretation Code [facility] Comment on above: Performed By: #### 2 186383, 27107744, 16675857, 99482148 ####[address] [address] CBC w/ Auto Diffon 4 Basophils/100 WBC (Bld) 0.4 % Normal 0.0-2.0 [facility] Comment on above: Performed By: #### 2 3206937, 9600978, 8783260, 6502373, 5129984, 73930191, 56911532, 5561402, 3702847 ####[address] [address] Basophils/Leukocytes Auto (Bld) [Pure # fraction] 0.1 E9/L Normal 0.0-0.2 [facility] Comment on above: Performed By: #### 2 5754478, 7839421, 1769071, 4474248, 1094008, 89743253, 22092563, 5422332, 4705333 ####[address] [address] Eosinophils (Bld) [#/Vol] 0.0 E9/L Normal 0.0-0.5 [facility] Comment on above: Performed By: #### 2 6096511, 1006010, 7968125, 1766400, 4912925, 02691007, 71191303, 8839885, 9656235 ####[address] [address] Eosinophils/100 WBC (Bld) 0.1 % Normal 0.0-8.0 [facility] Comment on above: Performed By: #### 2 2852295, 1979296, 3650651, 2751674, 4998229, 58240948, 12725186, 7997953, 4435230 ####[place] [address] [place] [address] Erythrocyte distribution width (RBC) [Ratio] 14.4 % High 10.9-14.2 [facility] Comment on above: Performed By: #### 2 7949746, 7135941, 7748313, 2012946, 2186347, 70373632, 75671899, 4247804, 1820610 ####[address] [address] Hematocrit (Bld) [Volume fraction] 42.5 % Normal 34.0-46.0 [facility] Comment on above: Performed By: #### 2 5184708, 8533588, 5223999, 5736219, 0443027, 67613779, 46678529, 3424664, 1760223 ####[address] [address] Hemoglobin (Bld) [Mass/Vol] 14.0 g/dL Normal 12.0-16.0 [facility] Comment on above: Performed By: #### 2 4756730, 1673064, 9935377, 1715453, 5593272, 72195665, 29150804, 9558563, 4606060 ####[address] [address] Lymphocytes (Bld) [#/Vol] 2.3 E9/L Normal 1.0-4.0 [facility] Comment on above: Performed By: #### 2 7626783, 8370174, 0058654, 2387791, 4043108, 79490905, 89787974, 1930280, 0256343 ####[address] [address] Lymphocytes/100 WBC (Bld) 11.8 % Low 14.0-50.0 [facility] Comment on above: Performed By: #### 2 0185750, 5217009, 7113247, 2073659, 8953658, 41904868, 83536248, 6115591, 2793416 ####[place] [address] [place] [address] MCH (RBC) [Entitic mass] 27.6 pg Normal 27.0-34.0 [facility] Comment on above: Performed By: #### 2 2267475, 7511936, 4558330, 3742159, 7679100, 28289136, 39931856, 1368068, 5796170 ####[address] [address] MCHC (RBC) [Mass/Vol] 32.9 g/dL Normal 31.4-36.0 [facility] Comment on above: Performed By: #### 2 3000815, 3889458, 1753211, 9445668, 7089938, 84349788, 30206253, 2823496, 3244696 ####[address] [address] MCV (RBC) [Entitic vol] 83.8 fL Normal 80.0-100.0 [facility] Comment on above: Performed By: #### 2 1319807, 3799107, 2261034, 4532537, 9309520, 79029010, 85801858, 0265655, 7947568 ####[address] [address] Monocytes (Bld) [#/Vol] 1.4 E9/L High 0.2-1.0 [facility] Comment on above: Performed By: #### 2 3874010, 2355064, 5397690, 7586884, 8009723, 29527148, 59578976, 7257140, 4467285 ####[address] [address] Neutrophils (Bld) [#/Vol] 15.5 E9/L High 2.0-7.5 [facility] Comment on above: Performed By: #### 2 3881095, 0598658, 1922413, 7284335, 8333044, 61351233, 27193949, 1496753, 0074399 ####[place] [address] [place] [address] Neutrophils/100 WBC (Bld) 80.6 % High 36.0-75.0 [facility] Comment on above: Performed By: #### 2 3732653, 3933026, 5099656, 4891991, 3779837, 72935234, 34658242, 9247278, 6032055 ####[address] [address] Platelet mean volume (Bld) [Entitic vol] 8.4 fL Normal 6.4-10.8 [facility] Comment on above: Performed By: #### 2 8070887, 1654832, 7260965, 8084238, 7355351, 52201847, 65985798, 0969300, 7251663 ####[address] [address] Platelets (Bld) [#/Vol] 356.0 E9/L Normal 150.0-500. 0 [facility] Comment on above: Performed By: #### 2 0005849, 1904102, 8146987, 8008951, 0029223, 69836374, 44203156, 8171180, 0087034 ####[address] [address] RBC (Bld) [#/Vol] 5.1 E12/L Normal 4.3-5.9 [facility] Comment on above: Performed By: #### 2 5100987, 4657495, 0832886, 9989106, 4095984, 11221997, 04993578, 8823148, 6647784 ####[address] [address] WBC corrected for nucl RBC Auto (Bld) [#/Vol] 19.3 E9/L High 4.0-11.0 [facility] Comment on above: Result Comment: Slid e review performed Performed By: #### 2 2700126, 5030482, 8505531, 6094759, 3395235, 29612416, 73480573, 6059989, 9518692 ####[facility] [address] [place] [address] CHEMISTRYOrdered By: SYSTEM SYSTEM on 03-13-2024 Albumin [...] 32.8 s Normal 25.1 - 36.5 second(s) [facility] Auto Coag Comment on above: Interpretive Data: [...] the same coagulation reagent and instrumentation as [facility]. Currently there are no coagulation studies available worldwide for children to 14 days, and no normal ranges. Heparin therapeutic range (represented by Anti-Factor Xa activity of 0.2 - 0.4 U/mL) corresponds to PTT of 56.6 - 109.0 sec. INR Coag (PPP) [Relative time] 1.11 {INR} Invalid Interpretation Code [facility] Auto Coag Comment on above: Interpretive Data: I NR results are specifically intended to assess patients stabilized on long-term Anticoagulation therapy suggested INR s Less Intensive Anticoagulation 2.0 3.0 Conventional Range 3.0 4.5 PT Coag (PPP) [Time] 12.4 s Normal 9.4 - 1 2.5 second(s) [facility] Auto Coag Comment on above: Interpretive Data: [...] the same coagulation reagent and instrumentation as [facility]. Currently there are no coagulation studies available worldwide for children to 14 days, and no normal ranges. Consent for Treatmenton 02-26 Consent for Treatment [id number]#1.00TIFF Normal [facility] Discharge Instructionson Discharge Instructions [id number]#1.00TIFF Normal [facility] ED Clinical Summaryon 2023 ED Clinical Summary (Inserted Image. Vesta ble to display) [address] [address] ED Clinical Summary Person Information Name: PILI PARIKH/[facility] Age: 19 Years : 2005 Sex: Female [...] 03/13/2024 22:27:59 03/13/2024 22:27:59 ADDRESS: [address] [facility] [id number] PHYS DOC NOTES: MEDICAL INFORMATION: Prescriptions Given: New Medications [id number], [address], [place] [id number], [phone] acetaminophen-hydrocodone (Talcott 325 mg-5 mg oral tablet) 1 Tablets [...] EDUCATION INFORMATION: Instructions: Nausea and Vomiting, Adult, Lnwe-uw-Kmhe; Muscle Strain, Pzxr-pf-Mecm Follow up: With: Address: When: MODESTA ARCHIBALD [address] [place], [place] [phone] Business (1) In 3 days 03/16/2024 Comments: [...] Back strain; N&V (nausea and vomiting) Normal [facility] ED Note-Physicianon 03-13-20 ED Note-Physician [...] EDT, STA (more content not included)... Normal [facility] Comment on above: Result Comment: Elec tronically Signed By: Precious LOVE, Gasper\.br\Date and Time Signed: 03/13/24 18:45 EDT\.br\Electronically Co-Signed [...] ? Low-calorie sports drinks. ? Eat bland, eyzx-gv-fuvgyf foods in small amounts as you are able, such as: ? Bananas. ? Applesauce. ? Rice. ? Low-fat (lean) meats. ? [place]. ? Crackers. ? Avoid drinking fluids that have a lot of sugar or caffeine in them. This includes energy drinks, sports drinks, and soda. ? Avoid alcohol. ? Avoid spicy or fatty foods. General instructions ? Take fpbe-rwf-xbvlalr and prescription medicines only as told by your doctor. ? Drink enough fluid to keep your pee (urine) pale yellow. ? Wash your hands often with soap and water for at least 20 seconds. If you cannot use soap and water, use hand transfer and pumphouse operator chief. ? Make sure that everyone in your [...] doctor about eating and drinking. ? Take nxml-kur-npdbvnq and prescription medicines only as told by your doctor. ? Contact your doctor if your symptoms get worse or you have new symptoms. ? Keep all follow-up visits. This information is not intended to replace advice given to you by your health care provider. Make sure you discuss any questions you have with your health care provider. Document Revised: 05/21/2022 Document Reviewed: 05/21/2022 [facility] Patient Education ? 2022 [employer]. Orthopedics Muscle Strain A muscle strain, or [...] your m (more content not included)... Normal [facility] ED Patient Summaryon 024 ED Patient Summary (Inserted Image. Vesta ble to display) [place] [id number] Patient Discharge Instructions Person Information Name: PILI PARIKH Age: 19 Years Arrival Date: 03/13/2024 17:33:02 Discharge Diagnosis: 1:Fall down stairs; Abnormal CT scan, chest; Back strain; N&V (nausea and vomiting) Primary Care Physician: MODESTA ARCHIBALD Provider Information Primary Provider: Femi Roman DO [employer] Professor:Gasper Lang PA-C The exam and treatment you received in the Emergency Department were for an urgent problem and are not intended as complete care. It is important that you follow up with a doctor, nurse practitioner, or physician?s retail sales assistant for ongoing care. If your symptoms become worse or you do not improve as expected and you are unable to reach your usual health care provider, you should return to the Emergency Department. We are available 24 hours a day. PILI PARIKH has been given the following list of patient education materials, prescriptions and follow-up instructions: Follow-up Instructions: With: Address: When: MODESTA [address] [place], [place] [phone] Business (1) In 3 days 03/16/2024 Comments: [...] Patient Education Materials: Nausea and Vomiting, Adult, Gyvq-kr-Riyz; Muscle Strain, Yzbe-za-Jvha A MESSAGE TO ALL PATIENTS REGARDING OPIOIDS PRESCRIPTION OPIOIDS: WHAT YOU NEED TO KNOW Prescription opioids can be used to help relieve yqqvczfu-jk-govsbn pain and are often prescribed following a [...] them juan (more content not included)... Normal [facility] ED Traumaon 03-13-2024 ED Trauma [id number]#1.00TIFF Normal [facility] Ethanolon 03-13-2024 Ethanol Lvl <10 Normal <=11 [facility] Comment on above: Performed By: #### 2 024344 ####[facility] [address] [place] [address] HEMATOLOGYOrdered By: SYSTEM SYSTEM on 03-13-2024 Basophils/100 [...] Remisol Heme Comment on above: Result Comment: Jamal cole review performed Hep Fun Panelon 03-13-2024 Albumin [Mass/Vol] 5.4 g/dL High 3.3-5.0 [facility] Comment on above: Performed By: #### 2 7481808, 3103459, 1763364, 3970802, 7074581, 92447943, 83514017, 8779795, 3211316 ####[facility] [address] [place] [address] Albumin/Globulin (S) [Mass conc ratio] 1.8 Normal 1.1-2.2 [facility] Comment on above: Performed By: #### 2 5463246, 2650268, 0668043, 0384008, 4579971, 31403822, 15607725, 6544966, 0754785 ####[facility] [address] [place] [address] ALP [Catalytic activity/Vol] 82 Int._Unit/L Normal 21-98 [facility] Comment on above: Performed By: #### 2 7536135, 8272395, 5447480, 7316751, 5168686, 29233536, 60598517, 0957250, 3460564 ####[facility] [address] [place] [address] ALT No additional P-5'-P [Catalytic activity/Vol] 44 Int._Unit/L Normal 6-46 [facility] Comment on above: Performed By: #### 2 3791269, 6272145, 8734674, 3838699, 0738619, 55634851, 77946922, 7027880, 4002314 ####[facility] [address] [place] [address] AST [Catalytic activity/Vol] 23 Int._Unit/L Normal 5-43 [facility] Comment on above: Performed By: #### 2 2611654, 3162586, 0183400, 0061317, 8859582, 86088842, 66885045, 2055962, 0296943 ####[facility] [address] [place] [address] Bilirubin [Mass/Vol] 0.8 mg/dL Normal 0.0-1.1 [facility] Comment on above: Performed By: #### 2 0849996, 8323715, 9670413, 4054564, 2074845, 46524331, 73245727, 2750295, 3578765 ####[facility] [address] [place] [address] Bilirubin.direct [Mass/Vol] 0.2 mg/dL Normal 0.0-0.4 [facility] Comment on above: Performed By: #### 2 1061585, 5261209, 0814478, 9128242, 7024002, 37273536, 90977643, 7147013, 4496845 ####[place] [address] Bilirubin.indirect [Mass or moles/Vol] 0.6 mg/dL Normal 0.1-0.9 [facility] Comment on above: Performed By: #### 2 1465490, 6547814, 9744607, 2347186, 4167689, 85627403, 42899555, 6046259, 3683322 ####[address] [address] Globulin (S) [Mass/Vol] 3.0 g/dL Normal 1.4-4.0 [facility] Comment on above: Performed By: #### 2 3811700, 4129499, 7458033, 0324053, 4690000, 04858741, 74754369, 6450906, 2429586 ####[facility] [address] [place] [address] Protein [Mass/Vol] 8.4 g/dL High 6.0-7.8 [facility] Comment on above: Performed By: #### 2 8292412, 2281704, 5573806, 5834557, 0420033, 34050884, 30576005, 5736284, 5506383 ####[address] [address] Lactic Acidon 03-13-2024 Lactic Acid Lvl 1.7 mmol/L Normal 0.5-2.2 [facility] Comment on above: Performed By: #### 2 1739438, 4995294, 8464739, 0608329, 3765802, 28272909, 63200091, 7674471, 2174213 ####[facility] [address] [place] [address] Lipase Levelon 03-13-2024 Lipase [Catalytic activity/Vol] 14 U/L Normal 13-58 [facility] Comment on above: Performed By: #### 2 7537661, 8146873, 8110548, 3045587, 1281964, 01466508, 82344458, 1834808, 3794434 ####[facility] [address] [place] [address] Monitor Recordon 03-13-2024 Monitor Record [id number]#1.00TIFF Normal [facility] Monitor Record [id number]#1.00TIFF Normal [facility] PT & PTTon 03-13-2024 aPTT Coag (PPP) [Time] 32.8 second(s) Normal 25.1-36.5 [facility] Comment on above: Result Comment: [...] the same coagulation reagent and instrumentation as [facility]. Currently there are no coagulation studies available worldwide for children to 14 days, and no normal ranges. Heparin therapeutic range (represented by Anti-Factor Xa activity of 0.2 - 0.4 U/mL) corresponds to PTT of 56.6 - 109.0 sec. Performed By: #### 2 [id number], [id number], 6809302, [id number], [id number], [id number], [id number], [id number] ####[facility] [address] [place] [address] INR Coag (PPP) [Relative time] 1.11 {INR} Invalid Interpretation Code [facility] Comment on above: Result Comment: INR results are specifically intended to assess patients stabilized on long-term Anticoagulation therapy suggested INR?s ?Less Intensive Anticoagulation? 2.0 ? 3.0 Conventional Range 3.0 ? 4.5 Performed By: #### 2 [id number], 9922646, 1966592, 8696200, 39768695, [id number], 8517638, [id number] ####[facility] [address] [place] [address] PT Coag (PPP) [Time] 12.4 second(s) Normal 9.4-12.5 [facility] Comment on above: Result Comment: [...] the same coagulation reagent and instrumentation as [facility]. Currently there are no coagulation studies available worldwide for children to 14 days, and no normal ranges. Performed By: #### 2 [id number], 4305970, 9114546, 1880287, [id number], [id number], 7045917, [id number] ####[facility] [address] [place] [address] Pre-Arrival Noteon Pre-Arrival Note Pre-Arrival Summary Name: LOS Current Date: 03/13/2024 17:34:24 EDT Gender: Female Date of : Age: 19 Pre-Arrival Type: EMS ETA: 03/13/2024 17:59:00 EDT Primary Care Physician: Presenting Problem: fall down 10 stairs Pre-Arrival User: Payal Robison RN Referring Source: Location: Completion Date/Time: 03/13/2024 17:29:00 [facility] Emergency Department Pre-Hospital Report Form Vital Signs: 127/83; 66; 17; 96%; GCS 15 Pre-Hospital Report: Treatment in Route: C-COLLAR Response to Treatment: Misc. Issues: Normal [facility] Prescriptions/Work Noteson 0 03-13-2024 Prescriptions/Work Notes [id number] Normal [facility] RAD - Preliminary Cat Scan R eporton 03-13-2024 RAD - Preliminary Cat Scan Report [id number] Normal [facility] SEROLOGYOrdered By: Virginia Mccain on 03-13-2024 Beta HCG ( test) Ql Negative (03/13/24 6:53 PM) Normal [facility] Man Sero Troponinon 03-13-2024 Troponin 6.10 pg/mL Low 10.10-27.1 0 [facility] Comment on above: Result Comment: The 95% CI (Confidence Interval) PPV (Positive Predictive Value) for myocardial infarction in females is 38 pg/mL, in males 51 pg/mL. The results should be used in conjunction with clinical conditions of myocardial infarction. (Access High Sensitivity Troponin I Instructions For Use, [place], June 2018) Performed By: #### 2 [id number], 3182721, 3181939, 9290419, 61230334, 18840483, 5948382, [id number] ####[facility] [address] [place] [address] eGFRon 03-13-2024 eGFR 94 mL/min/1.73 m2 Normal >=59 [facility] Comment on above: Order Comment: qns t o run. phlebotomists notified of recollect by message. [id number] 03/13/2024 18:28:21 EDTOrder added by Discern Expert. Performed By: #### 2 [id number], 3384316, 9026045, 9414090, 60912318, [id number], 4143602, 5369607 ####[facility] [address] [place] [address] Amphetamine Screen Ql (U)Ord ered By: Familia Christian on 05-25-2023 Amphetamines Ql (U) Negative Negative [facility] Barbiturates [Presence] in U rine by Screen methodOrdered By: Familia Christian on 05-25-2023 Barbiturates Screen Ql (U) Negative Negative [facility] Benzodiazepines Screen Ql (U )Ordered By: Familia Christian on 05-25-2023 Benzodiazepines Ql (U) Negative Negative [facility] Benzoylecgonine [Presence] i n Urine by Screen methodOrdered By: Familia Christian on 05-25-2023 Benzoylecgonine Screen Ql (U) Negative Negative [facility] Cannabinoids [Presence] in U rine by Screen methodOrdered By: Familia Christian on 05-25-2023 Cannabinoids Screen Ql (U) Positive Negative [facility] Comment on above: These are unconfirme d results and should not be used for legal purposes. Drug Cut-Off Concentration: AMPH 1000 ng/mL NIKOLAS 200 ng/mL SHRAVAN 200 ng/mL COCM 300 ng/mL OP 300 ng/mL PCP 25 ng/mL THC 20 ng/mL HCG ( test) IA.rapi d Ql (U)Ordered By: Familia Christian on 05-25-2023 HCG ( test) Ql (U) Negative [facility] Opiates [Presence] in Urine by Screen methodOrdered By: Familia Christian on 05-25-2023 Opiates Screen Ql (U) Negative Negative [facility] Phencyclidine Screen Ql (U)O rdered By: Familia Christian on 05-25-2023 Phencyclidine Ql (U) Negative Negative [facility] COVID-19 Detected/Not Detect edOrdered By: Modesta Chand on 03-15-2023 SARS-CoV-2 (COVID-19) RNA JANAK+non-probe Ql (Nph) Not detected Not Detecte [facility] Comment on above: This is a duplicate RP2.1 COVID (PCR) result to be used for statistical tracking purpose only. Respiratory pathogens DNA an d RNA panel - Nasopharynx by JANAK with non-probe detectionOrdered By: Modesta Chand on 03-15-2023 Respiratory pathogens DNA and RNA panel JANAK+non-probe (Nph) [facility] Basophils Auto (Bld) [#/Vol] Ordered By: Anette Stout on 01-07-2023 Basophils (Bld) [#/Vol] 0.0 10*3/uL 0.0-0.1 [facility] Basophils/100 WBC Auto (Bld) Ordered By: Anette Stout on 01-07-2023 Basophils/100 WBC (Bld) 0.4 % . [facility] Eosinophils Auto (Bld) [#/Vo l]Ordered By: Anette Stout on 01-07-2023 Eosinophils (Bld) [#/Vol] 0.7 10*3/uL 0.0-0.7 [facility] Eosinophils/100 WBC Auto (Bl d)Ordered By: Anette Stout on 01-07-2023 Eosinophils/100 WBC (Bld) 5.5 % . [facility] Erythrocyte distribution wid th Auto (RBC) [Ratio]Ordered By: Anette Stout on 01-07-2023 Erythrocyte distribution width (RBC) [Ratio] 13.5 % 11.9-15.3 [facility] Estimated glomerular filtrat ion rate (GFR) non- AmericanOrdered By: Anette Stout on 01-07-2023 GFR/1.73 sq M.predicted among non-blacks MDRD (S/P/Bld) [Vol rate/Area] > 60 mL/Min [facility] Hematocrit Auto (Bld) [Volum e fraction]Ordered By: Anette Stout on 01-07-2023 Hematocrit (Bld) [Volume fraction] 41.5 % 36.0-46.0 [facility] Hemoglobin [Mass/volume] in BloodOrdered By: Anette Stout on 01-07-2023 Hemoglobin (Bld) [Mass/Vol] 14.0 g/dL 12.0-16.0 [facility] Leukocytes [#/volume] correc venkata for nucleated erythrocytes in Blood by Automated counOrdered By: Anette Stout on 01-07-2023 WBC corrected for nucl RBC Auto (Bld) [#/Vol] 12.1 10*3/uL 4.5-13.5 [facility] Lymphocytes Auto (Bld) [#/Vo l]Ordered By: Anette Stout on 01-07-2023 Lymphocytes (Bld) [#/Vol] 2.5 10*3/uL 1.20-4.8 [facility] Lymphocytes/100 WBC Auto (Bl d)Ordered By: Anette Stout on 01-07-2023 Lymphocytes/100 WBC (Bld) 20.9 % . [facility] MCH Auto (RBC) [Entitic mass ]Ordered By: Anette Stout on 01-07-2023 MCH (RBC) [Entitic mass] 28.8 pg 25.0-35.0 [facility] MCHC Auto (RBC) [Mass/Vol]Or dered By: Anette Stout on 01-07-2023 MCHC (RBC) [Mass/Vol] 33.7 g/dL 31.0-37.0 [facility] MCV Auto (RBC) [Entitic vol] Ordered By: Anette Stout on 01-07-2023 MCV (RBC) [Entitic vol] 85.5 fL 78-102 [facility] Monocytes Auto (Bld) [#/Vol] Ordered By: Anette Stout on 01-07-2023 Monocytes (Bld) [#/Vol] 0.9 10*3/uL 0.1-1.00 [facility] Monocytes/100 WBC Auto (Bld) Ordered By: Anette Stout on 01-07-2023 Monocytes/100 WBC (Bld) 7.5 % . [facility] Neutrophils Auto (Bld) [#/Vo l]Ordered By: Anette Stout on 01-07-2023 Neutrophils (Bld) [#/Vol] 8.0 10*3/uL 1.2-7.7 [facility] Neutrophils/100 WBC Auto (Bl d)Ordered By: Anette Stout on 01-07-2023 Neutrophils/100 WBC (Bld) 65.7 % . [facility] No Panel InformationOrdered By: Anette Stout on 01-07-2023 > 60 mL/Min [facility] 113.92 [facility] Nucleated erythrocytes [Pres ence] in Blood by Automated countOrdered By: Anette Stout on 01-07-2023 Nucleated RBC Auto Ql (Bld) 0.1 /100{WBC} 0-0.5 [facility] Platelet mean volume Auto (B ld) [Entitic vol]Ordered By: Anette Stout on 01-07-2023 Platelet mean volume (Bld) [Entitic vol] 8.6 fL 6.3-10.7 [facility] Platelets Auto (Bld) [#/Vol] Ordered By: Anette Stout on 01-07-2023 Platelets (Bld) [#/Vol] 222 10*3/uL 150-450 [facility] RBC Auto (Bld) [#/Vol]Ordere d By: Anette Stout on 01-07-2023 RBC (Bld) [#/Vol] 4.85 10*6/uL 4.10-5.10 [facility] Serum or plasma anion gap de terminationOrdered By: Anette Stout on 01-07-2023 Anion gap [Moles/Vol] N/A [facility] Serum or plasma calcium tammy urement (mass/volume)Ordered By: Anette Stout on 01-07-2023 Calcium [Mass/Vol] 8.5 mg/dL 8.2-10.2 [facility] Serum or plasma chloride judy surement (moles/volume)Ordered By: Anette Stout on 01-07-2023 Chloride [Moles/Vol] 103 mmol/L 95-114 [facility] Serum or plasma creatinine m easurement with calculation of estimated glomerular filtrOrdered By: Anette Stout on 01-07-2023 Creatinine and Glomerular filtration rate.predicted panel (S/P/Bld) 0.77 mg/dL 0.44-1.03 [facility] Serum or plasma glucose tammy urement (mass/volume)Ordered By: Anette Stout on 01-07-2023 Glucose [Mass/Vol] 90 mg/dL 70-100 [facility] Serum or plasma potassium me asurement (moles/volume)Ordered By: Eliana Bautista on 01-07-2023 Potassium [Moles/Vol] 3.2 mmol/L 3.5-5.1 [facility] Serum or plasma sodium measu rement (moles/volume)Ordered By: Anette Stout on 01-07-2023 Sodium [Moles/Vol] 134 mmol/L 136-146 [facility] Serum or plasma total carbon dioxide measurement (moles/volume)Ordered By: Anette Stout on 01-07-2023 CO2 [Moles/Vol] 23.4 mmol/L 22.0-30.0 [facility] Serum or plasma urea nitroge n measurement (mass/volume)Ordered By: Anette Stout on 01-07-2023 Urea nitrogen [Mass/Vol] 8 mg/dL 9-23 [facility] WBC Auto (Bld) [#/Vol]Ordere d By: Anette Stout on 01-07-2023 WBC (Bld) [#/Vol] 12.1 10*3/uL 4.5-13.5 [facility] Amphetamine Screen Ql (U)Ord ered By: Anette Stout on 01-06-2023 Amphetamines Ql (U) Negative Negative [facility] Automated erythrocytes count in urine sediment (number/area)Ordered By: Rd Brown on 01-06-2023 RBC Auto (Urine sed) [#/Area] None seen [HPF] 0-4 [facility] Automated leukocytes count i n urine sediment (number/area)Ordered By: Rd Brown on 01-06-2023 WBC Auto (Urine sed) [#/Area] 20-49 [HPF] 0-4 [facility] Automated urine hyaline cast s count (number/volume)Ordered By: Rd Brown on 01-06-2023 Hyaline casts Auto (U) [#/Vol] None seen [LPF] 0-1 [facility] Barbiturates [Presence] in U rineOrdered By: Anette Stout on 01-06-2023 Barbiturates Ql (U) Negative Negative [facility] Basophils Auto (Bld) [#/Vol] Ordered By: Rd Brown on 01-06-2023 Basophils (Bld) [#/Vol] 0.0 10*3/uL 0.0-0.1 [facility] Basophils/100 WBC Auto (Bld) Ordered By: Rd Brown on 01-06-2023 Basophils/100 WBC (Bld) 0.3 % . [facility] Benzodiazepines [Presence] i n UrineOrdered By: Anette Stout on 01-06-2023 Benzodiazepines Ql (U) Negative Negative [facility] Bilirubin Test strip Ql (U)O rdered By: Rd Brown on 01-06-2023 Bilirubin Ql (U) Negative Negative [facility] Body fluid albumin measureme nt (mass/volume)Ordered By: Rd Brown on 01-06-2023 Albumin (Body fld) [Mass/Vol] 4.9 g/dL 3.2-5.5 [facility] Cannabinoids [Presence] in U rine by Screen methodOrdered By: Anette Stout on 01-06-2023 Cannabinoids Screen Ql (U) Positive Negative [facility] Casts typing in urine sedime nt by light microscopyOrdered By: Rd Brown on 01-06-2023 Casts LM Nom (Urine sed) None seen [LPF] None Seen [facility] Color Auto (U)Ordered By: Andrew Brown on 01-06-2023 Color (U) Yellow Yellow [facility] Eosinophils Auto (Bld) [#/Vo l]Ordered By: Rd Brown on 01-06-2023 Eosinophils (Bld) [#/Vol] 0.4 10*3/uL 0.0-0.7 [facility] Eosinophils/100 WBC Auto (Bl d)Ordered By: Rd Brown on 01-06-2023 Eosinophils/100 WBC (Bld) 2.3 % . [facility] Erythrocyte distribution wid th Auto (RBC) [Ratio]Ordered By: Rd Brown on 01-06-2023 Erythrocyte distribution width (RBC) [Ratio] 13.5 % 11.9-15.3 [facility] Estimated glomerular filtrat ion rate (GFR) non- AmericanOrdered By: Rd Brown on 01-06-2023 GFR/1.73 sq M.predicted among non-blacks MDRD (S/P/Bld) [Vol rate/Area] > 60 mL/Min [facility] Globulin Calc (S) [Mass/Vol] Ordered By: Rd Brown on 01-06-2023 Globulin (S) [Mass/Vol] 2.9 g/dL [facility] HCG ( test) IA.rapi d Ql (U)Ordered By: Rd Brown on 01-06-2023 HCG ( test) Ql (U) Negative [facility] Hematocrit Auto (Bld) [Volum e fraction]Ordered By: Rd Brown on 01-06-2023 Hematocrit (Bld) [Volume fraction] 48.3 % 36.0-46.0 [facility] Hemoglobin [Mass/volume] in BloodOrdered By: Rd Brown on 01-06-2023 Hemoglobin (Bld) [Mass/Vol] 16.2 g/dL 12.0-16.0 [facility] Ketones Auto test strip (U) [Mass/Vol]Ordered By: Rd Brown on 01-06-2023 Ketones (U) [Mass/Vol] 4+ [facility] Leukocytes [#/volume] correc venkata for nucleated erythrocytes in Blood by Automated counOrdered By: Rd Brown on 01-06-2023 WBC corrected for nucl RBC Auto (Bld) [#/Vol] 17.7 10*3/uL 4.5-13.5 [facility] Lymphocytes Auto (Bld) [#/Vo l]Ordered By: Rd Brown on 01-06-2023 Lymphocytes (Bld) [#/Vol] 3.5 10*3/uL 1.20-4.8 [facility] Lymphocytes/100 WBC Auto (Bl d)Ordered By: Rd Brown on 01-06-2023 Lymphocytes/100 WBC (Bld) 19.9 % . [facility] MCH Auto (RBC) [Entitic mass ]Ordered By: Rd Brown on 01-06-2023 MCH (RBC) [Entitic mass] 28.7 pg 25.0-35.0 [facility] MCHC Auto (RBC) [Mass/Vol]Or dered By: Rd Brown on 01-06-2023 MCHC (RBC) [Mass/Vol] 33.6 g/dL 31.0-37.0 [facility] MCV Auto (RBC) [Entitic vol] Ordered By: Rd Brown on 01-06-2023 MCV (RBC) [Entitic vol] 85.4 fL 78-102 [facility] Monocyte distribution width [Entitic volume] in Blood by AutomatedOrdered By: Rd Brown on 01-06-2023 Monocyte distribution width Auto (Bld) [Entitic vol] 15.43 % 0.00-20.00 [facility] Monocytes Auto (Bld) [#/Vol] Ordered By: Rd Brown on 01-06-2023 Monocytes (Bld) [#/Vol] 1.3 10*3/uL 0.1-1.00 [facility] Monocytes/100 WBC Auto (Bld) Ordered By: Rd Brown on 01-06-2023 Monocytes/100 WBC (Bld) 7.4 % . [facility] Neutrophils Auto (Bld) [#/Vo l]Ordered By: Rd Brown on 01-06-2023 Neutrophils (Bld) [#/Vol] 12.4 10*3/uL 1.2-7.7 [facility] Neutrophils/100 WBC Auto (Bl d)Ordered By: Rd Brown on 01-06-2023 Neutrophils/100 WBC (Bld) 70.1 % . [facility] Nitrite Test strip Ql (U)Ord ered By: Rd Brown on 01-06-2023 Nitrite Ql (U) Negative Negative [facility] No Panel InformationOrdered By: Anette Stout on 01-06-2023 Negative Negative [facility] No Panel InformationOrdered By: Rd Brown on 01-06-2023 > 60 mL/Min [facility] 31.0 U/L 22-51 [facility] 102.00 [facility] Nucleated erythrocytes [Pres ence] in Blood by Automated countOrdered By: Rd Brown on 01-06-2023 Nucleated RBC Auto Ql (Bld) 0.1 /100{WBC} 0-0.5 [facility] Phencyclidine Screen Ql (U)O rdered By: Anette Stout on 01-06-2023 Phencyclidine Ql (U) Negative Negative [facility] Platelet mean volume Auto (B ld) [Entitic vol]Ordered By: Rd Brown on 01-06-2023 Platelet mean volume (Bld) [Entitic vol] 8.5 fL 6.3-10.7 [facility] Platelets Auto (Bld) [#/Vol] Ordered By: Rd Brown on 01-06-2023 Platelets (Bld) [#/Vol] 296 10*3/uL 150-450 [facility] Protein Auto test strip (U) [Mass/Vol]Ordered By: Rd Brown on 01-06-2023 Protein (U) [Mass/Vol] 100 mg/dL Negative Fi [facility] Protein [Mass/volume] in Ser um or PlasmaOrdered By: Rd Brown on 01-06-2023 Protein [Mass/Vol] 7.8 g/dL 6.1-7.9 [facility] RBC Auto (Bld) [#/Vol]Ordere d By: Rd Brown on 01-06-2023 RBC (Bld) [#/Vol] 5.65 10*6/uL 4.10-5.10 [facility] Serum or plasma alanine florez otransferase measurement without P-5'-P (enzymatic activiOrdered By: Rd Brown on 01-06-2023 ALT No additional P-5'-P [Catalytic activity/Vol] 20 U/L 10-60 [facility] Serum or plasma albumin/glob ulin mass ratioOrdered By: Rd Brown on 01-06-2023 Albumin/Globulin [Mass ratio] 1.7 {ratio} [facility] Serum or plasma alkaline justin sphatase measurement (enzymatic activity/volume)Ordered By: Rd Brown on 01-06-2023 ALP [Catalytic activity/Vol] 66 U/L 32-92 [facility] Serum or plasma anion gap de terminationOrdered By: Rd Brown on 01-06-2023 Anion gap [Moles/Vol] 19.4 mmol/L 6.0-15.0 [facility] Serum or plasma aspartate am inotransferase measurement (enzymatic activity/volume)Ordered By: Rd Brown on 01-06-2023 AST [Catalytic activity/Vol] 20 U/L 10-42 [facility] Serum or plasma calcium tammy urement (mass/volume)Ordered By: Rd Brown on 01-06-2023 Calcium [Mass/Vol] 9.8 mg/dL 8.2-10.2 [facility] Serum or plasma chloride judy surement (moles/volume)Ordered By: Rd Brown on 01-06-2023 Chloride [Moles/Vol] 91 mmol/L 95-114 [facility] Serum or plasma creatinine m easurement with calculation of estimated glomerular filtrOrdered By: Rd Brown on 01-06-2023 Creatinine and Glomerular filtration rate.predicted panel (S/P/Bld) 0.86 mg/dL 0.44-1.03 [facility] Serum or plasma glucose tammy urement (mass/volume)Ordered By: Rd Brown on 01-06-2023 Glucose [Mass/Vol] 80 mg/dL 70-100 [facility] Serum or plasma potassium me asurement (moles/volume)Ordered By: Rd Brown on 01-06-2023 Potassium [Moles/Vol] 2.7 mmol/L 3.5-5.1 [facility] Serum or plasma sodium measu rement (moles/volume)Ordered By: Rd Brown on 01-06-2023 Sodium [Moles/Vol] 132 mmol/L 136-146 [facility] Serum or plasma total biliru bin measurement (mass/volume)Ordered By: Rd Brown on 01-06-2023 Bilirubin [Mass/Vol] 1.5 mg/dL 0.3-1.2 [facility] Serum or plasma total carbon dioxide measurement (moles/volume)Ordered By: Rd Brown on 01-06-2023 CO2 [Moles/Vol] 24.3 mmol/L 22.0-30.0 [facility] Serum or plasma urea nitroge n measurement (mass/volume)Ordered By: Rd Brown on 01-06-2023 Urea nitrogen [Mass/Vol] 19 mg/dL 9-23 [facility] Specific gravity Auto test s trip (U) [Rel density]Ordered By: Rd Brown on 01-06-2023 Specific gravity (U) [Rel density] 1.027 1.001-1.03 0 [facility] Squamous epithelial cells de tection in urine sediment by light microscopyOrdered By: Rd Brown on 01-06-2023 Epithelial cells.squamous LM Ql (Urine sed) 10-19 [HPF] 0-2 [facility] Troponin I.cardiac [Mass/vol ume] in Serum or Plasma by High sensitivity methodOrdered By: Federico Randolph on 01-06-2023 Troponin I.cardiac High sensitivity method [Mass/Vol] 6 pg/mL 0-15 [facility] Urine bacteria detection by automated methodOrdered By: Rd Brown on 01-06-2023 Bacteria Auto Ql (U) 1+ None Seen [facility] Urine clarity by refractomet ry automatedOrdered By: Rd Brown on 01-06-2023 Clarity Refractometry automated (U) Cloudy Clear [facility] Urine cocaine detectionOrder ed By: Anette Stout on 01-06-2023 Cocaine Ql (U) Negative Negative [facility] Urine glucose measurement by automated test strip (mass/volume)Ordered By: Rd Brown on 01-06-2023 Glucose Auto test strip (U) [Mass/Vol] Normal mg/dL Normal [facility] Urine hemoglobin detection b y automated test stripOrdered By: Rd Brown on 01-06-2023 Hemoglobin Auto test strip Ql (U) 3+ Negative [facility] Urine lactic acid measuremen tOrdered By: Rd Brown on 01-06-2023 Lactate (U) [Moles/Vol] 1.6 mmol/L 0.5-2.2 [facility] Urine leukocyte esterase det ection by automated test stripOrdered By: Rd Brown on 01-06-2023 Leukocyte esterase Auto test strip Ql (U) 2+ Negative [facility] Urobilinogen Auto test strip (U) [Mass/Vol]Ordered By: Rd Brown on 01-06-2023 Urobilinogen (U) [Mass/Vol] Normal mg/dL Normal [facility] WBC Auto (Bld) [#/Vol]Ordere d By: Rd Brown on 01-06-2023 WBC (Bld) [#/Vol] 17.7 10*3/uL 4.5-13.5 [facility] pH Auto test strip (U)Ordere d By: Rd Brown on 01-06-2023 pH (U) 6.5 [pH] 5.0-9.0 [facility] Albumin [Mass/volume] in Ser um or PlasmaOrdered By: Ravi Arguello on 01-02-2023 Albumin [Mass/Vol] 5.0 g/dL 3.2-5.5 [facility] Automated erythrocytes count in urine sediment (number/area)Ordered By: Ravi Arguello on 01-02-2023 RBC Auto (Urine sed) [#/Area] 3-4 [HPF] 0-4 [facility] Automated leukocytes count i n urine sediment (number/area)Ordered By: Ravi Arguello on 01-02-2023 WBC Auto (Urine sed) [#/Area] 50-100 [HPF] 0-4 [facility] Automated urine hyaline cast s count (number/volume)Ordered By: Ravi Arguello on 01-02-2023 Hyaline casts Auto (U) [#/Vol] None seen [LPF] 0-1 [facility] Basophils Auto (Bld) [#/Vol] Ordered By: Ravi Arguello on 01-02-2023 Basophils (Bld) [#/Vol] 0.1 10*3/uL 0.0-0.1 [facility] Basophils/100 WBC Auto (Bld) Ordered By: Ravi Arguello on 01-02-2023 Basophils/100 WBC (Bld) 0.5 % . [facility] Bilirubin Test strip Ql (U)O rdered By: Ravi Arguello on 01-02-2023 Bilirubin Ql (U) Negative Negative [facility] Casts typing in urine sedime nt by light microscopyOrdered By: Ravi Arguello on 01-02-2023 Casts LM Nom (Urine sed) None seen [LPF] None Seen [facility] Color Auto (U)Ordered By: Gisselle Arguello on 01-02-2023 Color (U) Yellow Yellow [facility] Eosinophils Auto (Bld) [#/Vo l]Ordered By: Ravi Arguello on 01-02-2023 Eosinophils (Bld) [#/Vol] 0.0 10*3/uL 0.0-0.7 [facility] Eosinophils/100 WBC Auto (Bl d)Ordered By: Ravi Arguello on 01-02-2023 Eosinophils/100 WBC (Bld) 0.0 % . [facility] Erythrocyte distribution wid th Auto (RBC) [Ratio]Ordered By: Ravi Arguello on 01-02-2023 Erythrocyte distribution width (RBC) [Ratio] 13.9 % 11.9-15.3 [facility] Estimated glomerular filtrat ion rate (GFR) non- AmericanOrdered By: Ravi Arguello on 01-02-2023 GFR/1.73 sq M.predicted among non-blacks MDRD (S/P/Bld) [Vol rate/Area] > 60 mL/Min [facility] Globulin Calc (S) [Mass/Vol] Ordered By: Ravi Arguello on 01-02-2023 Globulin (S) [Mass/Vol] 2.9 g/dL [facility] HCG ( test) IA.rapi d Ql (U)Ordered By: Ravi Arguello on 01-02-2023 HCG ( test) Ql (U) Negative [facility] Hematocrit Auto (Bld) [Volum e fraction]Ordered By: Ravi Arguello on 01-02-2023 Hematocrit (Bld) [Volume fraction] 42.1 % 36.0-46.0 [facility] Hemoglobin [Mass/volume] in BloodOrdered By: Ravi Arguello on 01-02-2023 Hemoglobin (Bld) [Mass/Vol] 14.0 g/dL 12.0-16.0 [facility] Ketones Auto test strip (U) [Mass/Vol]Ordered By: Ravi Arguello on 01-02-2023 Ketones (U) [Mass/Vol] 3+ Negative Fi [facility] Leukocytes [#/volume] correc venkata for nucleated erythrocytes in Blood by Automated counOrdered By: Ravi Arguello on 01-02-2023 WBC corrected for nucl RBC Auto (Bld) [#/Vol] 14.1 10*3/uL 4.5-13.5 [facility] Lymphocytes Auto (Bld) [#/Vo l]Ordered By: Ravi Arguello on 01-02-2023 Lymphocytes (Bld) [#/Vol] 1.4 10*3/uL 1.20-4.8 [facility] Lymphocytes/100 WBC Auto (Bl d)Ordered By: Ravi Arguello on 01-02-2023 Lymphocytes/100 WBC (Bld) 10.1 % . [facility] MCH Auto (RBC) [Entitic mass ]Ordered By: Ravi Arguello on 01-02-2023 MCH (RBC) [Entitic mass] 28.6 pg 25.0-35.0 [facility] MCHC Auto (RBC) [Mass/Vol]Or dered By: Ravi Arguello on 01-02-2023 MCHC (RBC) [Mass/Vol] 33.2 g/dL 31.0-37.0 [facility] MCV Auto (RBC) [Entitic vol] Ordered By: Ravi Arguello on 01-02-2023 MCV (RBC) [Entitic vol] 86.2 fL 78-102 [facility] Monocyte distribution width [Entitic volume] in Blood by AutomatedOrdered By: Ravi Arguello on 01-02-2023 Monocyte distribution width Auto (Bld) [Entitic vol] 16.52 % 0.00-20.00 [facility] Monocytes Auto (Bld) [#/Vol] Ordered By: Ravi Arguello on 01-02-2023 Monocytes (Bld) [#/Vol] 1.0 10*3/uL 0.1-1.00 [facility] Monocytes/100 WBC Auto (Bld) Ordered By: Ravi Arguello on 01-02-2023 Monocytes/100 WBC (Bld) 7.0 % . [facility] Neutrophils Auto (Bld) [#/Vo l]Ordered By: Ravi Arguello on 01-02-2023 Neutrophils (Bld) [#/Vol] 11.6 10*3/uL 1.2-7.7 [facility] Neutrophils/100 WBC Auto (Bl d)Ordered By: Ravi Arguello on 01-02-2023 Neutrophils/100 WBC (Bld) 82.4 % . [facility] Nitrite Test strip Ql (U)Ord ered By: Ravi Arguello on 01-02-2023 Nitrite Ql (U) Negative Negative [facility] No Panel InformationOrdered By: Ravi Arguello on 01-02-2023 > 60 mL/Min [facility] 29.0 U/L 22-51 [facility] 86.85 [facility] Nucleated erythrocytes [Pres ence] in Blood by Automated countOrdered By: Ravi Arguello on 01-02-2023 Nucleated RBC Auto Ql (Bld) 0.0 /100{WBC} 0-0.5 [facility] Platelet mean volume Auto (B ld) [Entitic vol]Ordered By: Ravi Arguello on 01-02-2023 Platelet mean volume (Bld) [Entitic vol] 8.4 fL 6.3-10.7 [facility] Platelets Auto (Bld) [#/Vol] Ordered By: Ravi Arguello on 01-02-2023 Platelets (Bld) [#/Vol] 299 10*3/uL 150-450 [facility] Protein Auto test strip (U) [Mass/Vol]Ordered By: Ravi Arguello on 01-02-2023 Protein (U) [Mass/Vol] 100 mg/dL Negative [facility] Protein [Mass/volume] in Ser um or PlasmaOrdered By: Ravi Arguello on 01-02-2023 Protein [Mass/Vol] 7.9 g/dL 6.1-7.9 [facility] RBC Auto (Bld) [#/Vol]Ordere d By: Ravi Arguello on 01-02-2023 RBC (Bld) [#/Vol] 4.89 10*6/uL 4.10-5.10 [facility] Serum or plasma alanine florez otransferase measurement without P-5'-P (enzymatic activiOrdered By: Ravi Arguello on 01-02-2023 ALT No additional P-5'-P [Catalytic activity/Vol] 26 U/L 10-60 [facility] Serum or plasma albumin/glob ulin mass ratioOrdered By: Ravi Arguello on 01-02-2023 Albumin/Globulin [Mass ratio] 1.7 {ratio} [facility] Serum or plasma alkaline justin sphatase measurement (enzymatic activity/volume)Ordered By: Ravi Arguello on 01-02-2023 ALP [Catalytic activity/Vol] 60 U/L 32-92 [facility] Serum or plasma anion gap de terminationOrdered By: Ravi Arguello on 01-02-2023 Anion gap [Moles/Vol] 16.4 mmol/L 6.0-15.0 [facility] Serum or plasma aspartate am inotransferase measurement (enzymatic activity/volume)Ordered By: Ravi Arguello on 01-02-2023 AST [Catalytic activity/Vol] 32 U/L 10-42 [facility] Serum or plasma calcium tammy urement (mass/volume)Ordered By: Ravi Arguello on 01-02-2023 Calcium [Mass/Vol] 9.8 mg/dL 8.2-10.2 [facility] Serum or plasma chloride judy surement (moles/volume)Ordered By: Ravi Arguello on 01-02-2023 Chloride [Moles/Vol] 106 mmol/L 95-114 [facility] Serum or plasma creatinine m easurement with calculation of estimated glomerular filtrOrdered By: Ravi Arguello on 01-02-2023 Creatinine and Glomerular filtration rate.predicted panel (S/P/Bld) 1.01 mg/dL 0.44-1.03 [facility] Serum or plasma glucose tammy urement (mass/volume)Ordered By: Ravi Arguello on 01-02-2023 Glucose [Mass/Vol] 123 mg/dL 70-100 [facility] Serum or plasma potassium me asurement (moles/volume)Ordered By: Ravi Arguello on 01-02-2023 Potassium [Moles/Vol] 3.2 mmol/L 3.5-5.1 [facility] Serum or plasma sodium measu rement (moles/volume)Ordered By: Ravi Arguello on 01-02-2023 Sodium [Moles/Vol] 142 mmol/L 136-146 [facility] Serum or plasma total biliru bin measurement (mass/volume)Ordered By: Ravi Arguello on 01-02-2023 Bilirubin [Mass/Vol] 0.8 mg/dL 0.3-1.2 [facility] Serum or plasma total carbon dioxide measurement (moles/volume)Ordered By: Ravi Arguello on 01-02-2023 CO2 [Moles/Vol] 22.8 mmol/L 22.0-30.0 [facility] Serum or plasma urea nitroge n measurement (mass/volume)Ordered By: Ravi Arguello on 01-02-2023 Urea nitrogen [Mass/Vol] 22 mg/dL 9-23 [facility] Specific gravity Auto test s trip (U) [Rel density]Ordered By: Ravi Arguello on 01-02-2023 Specific gravity (U) [Rel density] 1.036 1.001-1.03 0 [facility] Squamous epithelial cells de tection in urine sediment by light microscopyOrdered By: Ravi Arguello on 01-02-2023 Epithelial cells.squamous LM Ql (Urine sed) Innumerable [HPF] 0-2 [facility] Urine bacteria detection by automated methodOrdered By: Ravi Arguello on 01-02-2023 Bacteria Auto Ql (U) 3+ None Seen [facility] Urine clarity by refractomet ry automatedOrdered By: Ravi Arguello on 01-02-2023 Clarity Refractometry automated (U) Turbid Clear [facility] Urine culture routineOrdered By: Ravi Arguello on 01-02-2023 Bacteria identified Cx Nom (U) [facility] Urine glucose measurement by automated test strip (mass/volume)Ordered By: Ravi Arguello on 01-02-2023 Glucose Auto test strip (U) [Mass/Vol] Normal mg/dL Normal [facility] Urine hemoglobin detection b y automated test stripOrdered By: Ravi Arguello on 01-02-2023 Hemoglobin Auto test strip Ql (U) Negative Negative [facility] Urine leukocyte esterase det ection by automated test stripOrdered By: Ravi Topetegisselle on 01-02-2023 Leukocyte esterase Auto test strip Ql (U) 3+ Negative [facility] Urobilinogen Auto test strip (U) [Mass/Vol]Ordered By: Ravi Topetegisselle on 01-02-2023 Urobilinogen (U) [Mass/Vol] Normal mg/dL Normal [facility] WBC Auto (Bld) [#/Vol]Ordere d By: Ravi Topetegisselle on 01-02-2023 WBC (Bld) [#/Vol] 14.1 10*3/uL 4.5-13.5 [facility] pH Auto test strip (U)Ordere d By: Ravi Saundra on 01-02-2023 pH (U) 6.0 [pH] 5.0-9.0 [facility] CULTURE URINEon 01-01-2023 CULTURE URINE Culture Observations : LIGHT GROWTH OF MIXED GENITAL JORI. NO POTENTIAL PATHOGENS SEEN. Normal [facility] Comment on above: Performed By: #### U RCX #### [facility] [address] [address] [address] Dacia Ackerman Covid-19 PCR ([facility])on SARS-CoV-2 (COVID-19) RNA JANAK+probe Ql (Unsp spec) Not detected Normal NOT DETECTED [facility] Comment on above: Result Comment: When [...] for this test is supported by the [employer] Supervisor of Health and Human Service's declaration that [...] used). Performed By: #### C VDTBH #### [facility] [address] [place] [address] Dr. Dacia Ackerman DRUG SCREEN RAPID (URINE)on 01-01-2023 AMP Negative Normal NEGATIVE [facility] Comment on above: Performed By: #### D RUGRPD #### [facility] [address] [place] [address] Dr. Dacia Ackerman BAR Negative Normal NEGATIVE [facility] Comment on above: Performed By: #### D RUGRPD #### [facility] [address] [place] [address] Dr. Dacia Ackerman BUP Negative Normal NEGATIVE [facility] Comment on above: Performed By: #### D RUGRPD #### [facility] [address] [place] [address] Dr. Dacia cAkerman BZO Negative Normal NEGATIVE [facility] Comment on above: Performed By: #### D RUGRPD #### [facility] [address] [place] [address] Dr. Dacia Ackerman MELINA Negative Normal NEGATIVE [facility] Comment on above: Performed By: #### D RUGRPD #### [facility] [address] [place] [address] Dr. Dacia Ackerman CUT-OFFS SEE BELOW Normal [facility] Comment on above: Result Comment: AMP [...] ng/mL Performed By: #### D RUGRPD #### [facility] [address] [place] [address] Dr. Dacia Ackerman DRUG CUT HEADER DRUG CLASS TEST SYST EM CUT-OFF CONCENTRATIONS ARE FOLLOWS: Normal [facility] Comment on above: Performed By: #### D RUGRPD #### [facility] [address] [place] [address] Dr. Dacia Ackerman mAMP Negative Normal NEGATIVE [facility] Comment on above: Performed By: #### D RUGRPD #### [facility] [address] [place] [address] Dr. Dacia Ackerman MTD Negative Normal NEGATIVE [facility] Comment on above: Performed By: #### D RUGRPD #### [facility] [address] [place] [address] Dr. Dacia Ackerman OPI Negative Normal NEGATIVE [facility] Comment on above: Performed By: #### D RUGRPD #### [facility] [address] [place] [address] Dr. Dacia Ackerman OXY Negative Normal NEGATIVE [facility] Comment on above: Performed By: #### D RUGRPD #### [facility] [address] [address] [address] Dacia Ackerman PCP Negative Normal NEGATIVE [facility] Comment on above: Performed By: #### D RUGRPD #### [facility] [address] [place] [address] Dr. Dacia Ackerman PPX Negative Normal NEGATIVE [facility] Comment on above: Performed By: #### D RUGRPD #### [facility] [address] [place] [address] Dr. Dacia Ackerman TCA Negative Normal NEGATIVE [facility] Comment on above: Performed By: #### D RUGRPD #### [facility] [address] [place] [address] Dr. Dacia Ackerman THC Positive Abnormal NEGATIVE [facility] Comment on above: Performed By: #### D RUGRPD #### [facility] [address] [place] [address] Dr. Dacia Ackerman ER URINE PROFILEon 02-04-202 3 Bilirubin Ql (U) SMALL Abnormal NEGATIVE [facility] Comment on above: Performed By: #### P REGU, ERUR, UMICRO #### [facility] [address] [place] [address] Dr. Dacia Ackerman Clarity (U) CLEAR Normal CLEAR [facility] Comment on above: Performed By: #### P REGU, ERUR, UMICRO #### [facility] [address] [address] [address] Dacia Ackerman Color (U) YELLOW Normal YELLOW [facility] Comment on above: Performed By: #### P REGU, ERUR, UMICRO #### [facility] [address] [address] [address] Dacia OLIVAS A micrscopic examina tion will be performed if indicated. Normal [facility] Comment on above: Performed By: #### P REGU, ERUR, UMICRO #### [facility] [address] [place] [address] Dr. Dacia Ackerman Glucose Ql (U) Negative Normal NEGATIVE [facility] Comment on above: Performed By: #### P REGU, ERUR, UMICRO #### [facility] [address] [place] [address] Dr. Dacia Ackerman Hemoglobin Ql (U) Negative Normal NEGATIVE [facility] Comment on above: Performed By: #### P REGU, ERUR, UMICRO #### [facility] [address] [address] [address] Dacia Ackerman Ketones Ql (U) >=80 Abnormal NEGATIVE [facility] Comment on above: Performed By: #### P REGU, ERUR, UMICRO #### [facility] [address] [address] [address] Dacia Ackerman LEUKOCYTES TRACE Abnormal NEGATIVE [facility] Comment on above: Performed By: #### P REGU, ERUR, UMICRO #### [facility] [address] [place] [address] Dr. Dacia Ackerman Nitrite Ql (U) Negative Normal NEGATIVE [facility] Comment on above: Performed By: #### P REGU, ERUR, UMICRO #### [facility] [address] [place] [address] Dr. Dacia Ackerman pH (U) 7.5 [pH] Normal 5-9 [facility] Comment on above: Performed By: #### P REGU, ERUR, UMICRO #### [facility] [address] [place] [address] Dr. Dacia Ackerman Protein (U) [Mass/Vol] 100 mg/dL Abnormal NEGAT JOAO/ TRACE [facility] Comment on above: Performed By: #### P REGU, ERUR, UMICRO #### [facility] [address] [place] [address] Dr. Dacia Ackerman SPEC GRAVITY 1.020 Normal 1.005-<=1. 025 [facility] Comment on above: Performed By: #### P REGU, ERUR, UMICRO #### [facility] [address] [place] [address] Dr. Dacia Ackerman UR MICRO IND INDICATED Normal [facility] Comment on above: Performed By: #### P REGU, ERUR, UMICRO #### [facility] [address] [place] [address] Dr. Dacia Ackerman Urobilinogen Qn (U) 1.0 {Kaykay'U}/dL Normal 0.2 - 1. 0 [facility] Comment on above: Performed By: #### P REGU, ERUR, UMICRO #### [facility] [address] [place] [address] Dr. Dacia Ackerman INFLUENZA A AND B AGon 01-01 INFLUANEGH SEE BELOW Normal [facility] Comment on above: Result Comment: Nega tive for Flu A protein angiten. Infection due to Flu A cannot be ruled out. Flu A angiten in the sample may be below the detection limit of the test. Performed By: #### I NFLUAB #### [facility] [address] [place] [address] Dr. Dacia Ackerman INFLUBNEGH SEE BELOW Normal [facility] Comment on above: Result Comment: Nega tive for Flu B protein antigen. Infection due to Flu B cannot be ruled out. Flu B antigen in the sample may be below the detection limit of the test. Performed By: #### I NFLUAB #### [facility] [address] [place] [address] Dr. Dacia Ackerman INFLUENZA A AG Negative Normal NEGATIVE SEE COMMENT [facility] Comment on above: Performed By: #### I NFLUAB #### [facility] [address] [place] [address] Dr. Dacia Ackerman INFLUENZA B AG Negative Normal NEGATIVE SEE COMMENT [facility] Comment on above: Performed By: #### I NFLUAB #### [facility] [address] [place] [address] Dr. Dacia Ackerman URon 01-01-2023 , QUAL Negative Normal NEGATIVE [facility] Comment on above: Performed By: #### P REGU, ERUR, UMICRO #### [facility] [address] [place] [address] Dr. Dacia Ackerman URINE MICROSCOPIC ONLYon BACTERIA MODERATE Abnormal NONE SEEN [facility] Comment on above: Performed By: #### P REGU, ERUR, UMICRO #### [facility] [address] [place] [address] Dr. Dacia Ackerman Bacteria identified Cx Nom (U) INDICATED Normal [facility] Comment on above: Performed By: #### P REGU, ERUR, UMICRO #### [facility] [address] [place] [address] Dr. Dacia Ackerman CAST NONE SEEN Normal NONE SEEN [facility] Comment on above: Performed By: #### P REGU, ERUR, UMICRO #### [facility] [address] [place] [address] Dr. Dacia Ackerman Crystals LM Nom (Urine sed) NONE SEEN Normal NONE SEEN [facility] Comment on above: Performed By: #### P REGU, ERUR, UMICRO #### [facility] [address] [place] [address] Dr. Dacia Ackerman Epithelial cells LM Ql (Urine sed) MANY Abnormal NONE SEEN /RARE [facility] Comment on above: Performed By: #### P REGU, ERUR, UMICRO #### [facility] [address] [address] [address] Dacia Ackerman MUCOUS SMALL Abnormal NONE SEEN [facility] Comment on above: Performed By: #### P REGU, ERUR, UMICRO #### [facility] [address] [address] [address] Dacia Ackerman RBC NONE SEEN Abnormal 0-2 [facility] Comment on above: Performed By: #### P REGU, ERUR, UMICRO #### [facility] [address] [address] [address] Dacia Ackerman WBC 5-10 Abnormal NONE SEEN [facility] Comment on above: Performed By: #### P REGU, ERUR, UMICRO #### [facility] [address] [address] [address] Dacia Ackerman XR CHEST 1 Von [...] KIA ARVIZU Date: 2023-01-01 13:00 Normal [facility] Automated erythrocytes count in urine sediment (number/area)Ordered By: Federico Randolph on 12-31-2022 RBC Auto (Urine sed) [#/Area] 0-1 [HPF] 0-4 [facility] Automated leukocytes count i n urine sediment (number/area)Ordered By: Federico Randolph on 12-31-2022 WBC Auto (Urine sed) [#/Area] 20-49 [HPF] 0-4 [facility] Bacteria identified Cx Nom ( U)Ordered By: Federico Randolph on 12-31-2022 Urine culture routine Staphylococcus epidermidis [facility] Bilirubin Test strip Ql (U)O rdered By: Federico Randolph on 12-31-2022 Bilirubin Ql (U) Negative Negative [facility] COVID-19 SOFIAOrdered By: Deep Randolph on 12-31-2022 SARS-CoV+SARS-CoV-2 (COVID-19) Ag IA.rapid Ql (Resp) Negative Negative [facility] Casts typing in urine sedime nt by light microscopyOrdered By: Federico Randolph on 12-31-2022 Casts LM Nom (Urine sed) None seen [LPF] None Seen [facility] Color Auto (U)Ordered By: Deep Randolph on 12-31-2022 Color (U) Yellow Yellow [facility] HCG ( test) IA.rapi d Ql (U)Ordered By: Federico Randolph on 12-31-2022 HCG ( test) Ql (U) Negative [facility] Influenza virus A and B anti gen detection by immunoassayOrdered By: Federico Randolph on 12-31-2022 FLUAV+FLUBV Ag IA Ql (Unsp spec) [facility] Ketones Auto test strip (U) [Mass/Vol]Ordered By: Federico Randolph on 12-31-2022 Ketones (U) [Mass/Vol] 3+ Negative [facility] Nitrite Test strip Ql (U)Ord ered By: Federico Randolph on 12-31-2022 Nitrite Ql (U) Negative Negative [facility] No Panel InformationOrdered By: Federico Randolph on 12-31-2022 None seen [LPF] 0-8 [facility] Protein Auto test strip (U) [Mass/Vol]Ordered By: Federico Randolph on 12-31-2022 Protein (U) [Mass/Vol] 100 mg/dL Negative [facility] Specific gravity Auto test s trip (U) [Rel density]Ordered By: Federico Randolph on 12-31-2022 Specific gravity (U) [Rel density] 1.026 1.001-1.03 0 [facility] Squamous epithelial cells de tection in urine sediment by light microscopyOrdered By: Federico Randolph on 12-31-2022 Epithelial cells.squamous LM Ql (Urine sed) Innumerable [HPF] 0-2 [facility] Urine bacteria detection by automated methodOrdered By: eFderico Randolph on 12-31-2022 Bacteria Auto Ql (U) 3+ None Seen [facility] Urine clarity by refractomet ry automatedOrdered By: Federico Randolph on 12-31-2022 Clarity Refractometry automated (U) Turbid Clear [facility] Urine glucose measurement by automated test strip (mass/volume)Ordered By: Federico Randolph on 12-31-2022 Glucose Auto test strip (U) [Mass/Vol] Normal mg/dL Normal [facility] Urine hemoglobin detection b y automated test stripOrdered By: Federico Randolph on 12-31-2022 Hemoglobin Auto test strip Ql (U) Negative Negative [facility] Urine leukocyte esterase det ection by automated test stripOrdered By: Federico Randolph on 12-31-2022 Leukocyte esterase Auto test strip Ql (U) 2+ Negative [facility] Urobilinogen Auto test strip (U) [Mass/Vol]Ordered By: Federico Randolph on 12-31-2022 Urobilinogen (U) [Mass/Vol] Normal mg/dL Normal [facility] pH Auto test strip (U)Ordere d By: Federico Randolph on 12-31-2022 pH (U) [pH] 5.0-9.0 [facility] Amphetamine Screen Ql (U)Ord ered By: Dixon Newberry on 11-09-2022 Amphetamines Ql (U) Negative Negative [facility] Barbiturates [Presence] in U rineOrdered By: Dixon Newberry on 11-09-2022 Barbiturates Ql (U) Negative Negative [facility] Basophils Auto (Bld) [#/Vol] Ordered By: Dixon Newberry on 11-09-2022 Basophils (Bld) [#/Vol] 0.0 10*3/uL 0.0-0.1 [facility] Basophils/100 WBC Auto (Bld) Ordered By: Dixon Newberry on 11-09-2022 Basophils/100 WBC (Bld) 0.3 % . [facility] Benzodiazepines [Presence] i n UrineOrdered By: Dixon Newberry on 11-09-2022 Benzodiazepines Ql (U) Negative Negative [facility] Bilirubin Test strip Ql (U)O rdered By: Dixon Newberry on 11-09-2022 Bilirubin Ql (U) Negative Negative [facility] Body fluid albumin measureme nt (mass/volume)Ordered By: Dixon Newberry on 11-09-2022 Albumin (Body fld) [Mass/Vol] 4.2 g/dL 3.2-5.5 [facility] Cannabinoids [Presence] in U rine by Screen methodOrdered By: Dixon Newberry on 11-09-2022 Cannabinoids Screen Ql (U) Positive Negative [facility] Color Auto (U)Ordered By: Nazia Newberry on 11-09-2022 Color (U) Yellow Yellow [facility] Eosinophils Auto (Bld) [#/Vo l]Ordered By: Dixon Newberry on 11-09-2022 Eosinophils (Bld) [#/Vol] 0.1 10*3/uL 0.0-0.7 [facility] Eosinophils/100 WBC Auto (Bl d)Ordered By: Dixon Newberry on 11-09-2022 Eosinophils/100 WBC (Bld) 0.8 % . [facility] Erythrocyte distribution wid th Auto (RBC) [Ratio]Ordered By: Dixon Newberry on 11-09-2022 Erythrocyte distribution width (RBC) [Ratio] 13.8 % 11.9-15.3 [facility] Estimated glomerular filtrat ion rate (GFR) non- AmericanOrdered By: Dixon Newberry on 11-09-2022 GFR/1.73 sq M.predicted among non-blacks MDRD (S/P/Bld) [Vol rate/Area] > 60 mL/Min [facility] Globulin Calc (S) [Mass/Vol] Ordered By: Dixon Newberry on 11-09-2022 Globulin (S) [Mass/Vol] 2.4 g/dL [facility] HCG ( test) IA.rapi d Ql (U)Ordered By: Dixon Newberry on 11-09-2022 HCG ( test) Ql (U) Negative [facility] Hematocrit Auto (Bld) [Volum e fraction]Ordered By: Dixon Newberry on 11-09-2022 Hematocrit (Bld) [Volume fraction] 41.0 % 36.0-46.0 [facility] Hemoglobin [Mass/volume] in BloodOrdered By: Dixon Newberry on 11-09-2022 Hemoglobin (Bld) [Mass/Vol] 13.4 g/dL 12.0-16.0 [facility] Ketones Auto test strip (U) [Mass/Vol]Ordered By: Dixon Newberry on 11-09-2022 Ketones (U) [Mass/Vol] Negative Negative [facility] Leukocytes [#/volume] correc venkata for nucleated erythrocytes in Blood by Automated counOrdered By: Dixon Newberry on 11-09-2022 WBC corrected for nucl RBC Auto (Bld) [#/Vol] 11.7 10*3/uL 4.5-13.5 [facility] Lymphocytes Auto (Bld) [#/Vo l]Ordered By: Dixon Newberry on 11-09-2022 Lymphocytes (Bld) [#/Vol] 1.4 10*3/uL 1.20-4.8 [facility] Lymphocytes/100 WBC Auto (Bl d)Ordered By: Dixon Newberry on 11-09-2022 Lymphocytes/100 WBC (Bld) 12.1 % . [facility] MCH Auto (RBC) [Entitic mass ]Ordered By: Dixon Newberry on 11-09-2022 MCH (RBC) [Entitic mass] 28.1 pg 25.0-35.0 [facility] MCHC Auto (RBC) [Mass/Vol]Or dered By: Dixon Newberry on 11-09-2022 MCHC (RBC) [Mass/Vol] 32.8 g/dL 31.0-37.0 [facility] MCV Auto (RBC) [Entitic vol] Ordered By: Dixon Newberry on 11-09-2022 MCV (RBC) [Entitic vol] 85.7 fL 78-102 [facility] Monocyte distribution width [Entitic volume] in Blood by AutomatedOrdered By: Dixon Newberry on 11-09-2022 Monocyte distribution width Auto (Bld) [Entitic vol] 16.08 % 0.00-20.00 [facility] Monocytes Auto (Bld) [#/Vol] Ordered By: Dixon Newberry on 11-09-2022 Monocytes (Bld) [#/Vol] 0.5 10*3/uL 0.1-1.00 [facility] Monocytes/100 WBC Auto (Bld) Ordered By: Dixon Newberry on 11-09-2022 Monocytes/100 WBC (Bld) 4.7 % . [facility] Neutrophils Auto (Bld) [#/Vo l]Ordered By: Dixon Newberry on 11-09-2022 Neutrophils (Bld) [#/Vol] 9.6 10*3/uL 1.2-7.7 [facility] Neutrophils/100 WBC Auto (Bl d)Ordered By: Dixon Newbrery on 11-09-2022 Neutrophils/100 WBC (Bld) 82.1 % . [facility] Nitrite Test strip Ql (U)Ord ered By: Dixon Newberry on 11-09-2022 Nitrite Ql (U) Negative Negative [facility] No Panel InformationOrdered By: Dixon Newberry on 11-09-2022 Negative Negative [facility] > 60 mL/Min [facility] 118.86 [facility] Nucleated erythrocytes [Pres ence] in Blood by Automated countOrdered By: Dixon Newberry on 11-09-2022 Nucleated RBC Auto Ql (Bld) 0.1 /100{WBC} 0-0.5 [facility] Phencyclidine Screen Ql (U)O rdered By: Dixon Newberry on 11-09-2022 Phencyclidine Ql (U) Negative Negative [facility] Platelet mean volume Auto (B ld) [Entitic vol]Ordered By: Dixon Newberry on 11-09-2022 Platelet mean volume (Bld) [Entitic vol] 8.5 fL 6.3-10.7 [facility] Platelets Auto (Bld) [#/Vol] Ordered By: Dixon Newberry on 11-09-2022 Platelets (Bld) [#/Vol] 274 10*3/uL 150-450 [facility] Protein Auto test strip (U) [Mass/Vol]Ordered By: Dixon Newberry on 11-09-2022 Protein (U) [Mass/Vol] Negative Negative [facility] Protein [Mass/volume] in Ser um or PlasmaOrdered By: Dixon Newberry on 11-09-2022 Protein [Mass/Vol] 6.6 g/dL 6.1-7.9 [facility] RBC Auto (Bld) [#/Vol]Ordere d By: Dixon Newberry on 11-09-2022 RBC (Bld) [#/Vol] 4.78 10*6/uL 4.10-5.10 [facility] Serum or plasma alanine florez otransferase measurement without P-5'-P (enzymatic activiOrdered By: Dixon Newberry on 11-09-2022 ALT No additional P-5'-P [Catalytic activity/Vol] 67 U/L 10-60 [facility] Serum or plasma albumin/glob ulin mass ratioOrdered By: Dixon Newberry on 11-09-2022 Albumin/Globulin [Mass ratio] 1.8 {ratio} [facility] Serum or plasma alkaline justin sphatase measurement (enzymatic activity/volume)Ordered By: Dixon Newberry on 11-09-2022 ALP [Catalytic activity/Vol] 59 U/L 32-92 [facility] Serum or plasma anion gap de terminationOrdered By: Dixon Newberry on 11-09-2022 Anion gap [Moles/Vol] 19.7 mmol/L 6.0-15.0 [facility] Serum or plasma aspartate am inotransferase measurement (enzymatic activity/volume)Ordered By: Dixon Newberry on 11-09-2022 AST [Catalytic activity/Vol] 48 U/L 10-42 [facility] Serum or plasma calcium tammy urement (mass/volume)Ordered By: Dixon Newberry on 11-09-2022 Calcium [Mass/Vol] 9.6 mg/dL 8.2-10.2 [facility] Serum or plasma chloride judy surement (moles/volume)Ordered By: Dixon Newberry on 11-09-2022 Chloride [Moles/Vol] 98 mmol/L 95-114 [facility] Serum or plasma creatinine m easurement with calculation of estimated glomerular filtrOrdered By: Dixon Newberry on 11-09-2022 Creatinine and Glomerular filtration rate.predicted panel (S/P/Bld) 0.76 mg/dL 0.44-1.03 [facility] Serum or plasma glucose tammy urement (mass/volume)Ordered By: Dixon Newberry on 11-09-2022 Glucose [Mass/Vol] 110 mg/dL 70-100 [facility] Serum or plasma potassium me asurement (moles/volume)Ordered By: Dixon Newberry on 11-09-2022 Potassium [Moles/Vol] 3.4 mmol/L 3.5-5.1 [facility] Serum or plasma sodium measu rement (moles/volume)Ordered By: Dixon Newberry on 11-09-2022 Sodium [Moles/Vol] 137 mmol/L 136-146 [facility] Serum or plasma total biliru bin measurement (mass/volume)Ordered By: Dixon Newberry on 11-09-2022 Bilirubin [Mass/Vol] 0.5 mg/dL 0.3-1.2 [facility] Serum or plasma total carbon dioxide measurement (moles/volume)Ordered By: Dixon Newberry on 11-09-2022 CO2 [Moles/Vol] 22.7 mmol/L 22.0-30.0 [facility] Serum or plasma urea nitroge n measurement (mass/volume)Ordered By: Dixon Newberry on 11-09-2022 Urea nitrogen [Mass/Vol] 3 mg/dL 9-23 [facility] Specific gravity Auto test s trip (U) [Rel density]Ordered By: Dixon Newberry on 11-09-2022 Specific gravity (U) [Rel density] 1.009 1.001-1.03 0 [facility] Urine clarity by refractomet ry automatedOrdered By: Dixon Newberry on 11-09-2022 Clarity Refractometry automated (U) Clear Clear [facility] Urine cocaine detectionOrder ed By: Dixon Newberry on 11-09-2022 Cocaine Ql (U) Negative Negative [facility] Urine glucose measurement by automated test strip (mass/volume)Ordered By: Dixon Newberry on 11-09-2022 Glucose Auto test strip (U) [Mass/Vol] Normal mg/dL Normal [facility] Urine hemoglobin detection b y automated test stripOrdered By: Dixon Newberry on 11-09-2022 Hemoglobin Auto test strip Ql (U) Negative Negative [facility] Urine leukocyte esterase det ection by automated test stripOrdered By: Dixon Newberry on 11-09-2022 Leukocyte esterase Auto test strip Ql (U) Negative Negative [facility] Urobilinogen Auto test strip (U) [Mass/Vol]Ordered By: Dixon Newberry on 11-09-2022 Urobilinogen (U) [Mass/Vol] Normal mg/dL Normal [facility] WBC Auto (Bld) [#/Vol]Ordere d By: Dixon Newberry on 11-09-2022 WBC (Bld) [#/Vol] 11.7 10*3/uL 4.5-13.5 [facility] pH Auto test strip (U)Ordere d By: Dixon Newberry on 11-09-2022 pH (U) [pH] 5.0-9.0 [facility] Albumin [Mass/volume] in Ser um or PlasmaOrdered By: Art Bianchi on 11-07-2022 Albumin [Mass/Vol] 4.6 g/dL 3.2-5.5 [facility] Automated erythrocytes count in urine sediment (number/area)Ordered By: Art Bianchi on 11-07-2022 RBC Auto (Urine sed) [#/Area] 0-1 [HPF] 0-4 [facility] Automated leukocytes count i n urine sediment (number/area)Ordered By: Art Bianchi on 11-07-2022 WBC Auto (Urine sed) [#/Area] 3-4 [HPF] 0-4 [facility] Basophils Auto (Bld) [#/Vol] Ordered By: Art Bianchi on 11-07-2022 Basophils (Bld) [#/Vol] 0.1 10*3/uL 0.0-0.1 [facility] Basophils/100 WBC Auto (Bld) Ordered By: Art Bianchi on 11-07-2022 Basophils/100 WBC (Bld) 1.0 % . [facility] Bilirubin Test strip Ql (U)O rdered By: Art Bainchi on 11-07-2022 Bilirubin Ql (U) Negative Negative [facility] Color Auto (U)Ordered By: Adrian Bianchi on 11-07-2022 Color (U) Yellow Yellow [facility] Eosinophils Auto (Bld) [#/Vo l]Ordered By: Art Bianchi on 11-07-2022 Eosinophils (Bld) [#/Vol] 0.1 10*3/uL 0.0-0.7 [facility] Eosinophils/100 WBC Auto (Bl d)Ordered By: Art Bianchi on 11-07-2022 Eosinophils/100 WBC (Bld) 1.2 % . [facility] Erythrocyte distribution wid th Auto (RBC) [Ratio]Ordered By: Art Bianchi on 11-07-2022 Erythrocyte distribution width (RBC) [Ratio] 14.0 % 11.9-15.3 [facility] Estimated glomerular filtrat ion rate (GFR) non- AmericanOrdered By: Art Bianchi on 11-07-2022 GFR/1.73 sq M.predicted among non-blacks MDRD (S/P/Bld) [Vol rate/Area] > 60 mL/Min [facility] Globulin Calc (S) [Mass/Vol] Ordered By: Art Bianchi on 11-07-2022 Globulin (S) [Mass/Vol] 2.7 g/dL [facility] HCG ( test) IA.rapi d Ql (U)Ordered By: Art Bianchi on 11-07-2022 HCG ( test) Ql (U) Negative [facility] Hematocrit Auto (Bld) [Volum e fraction]Ordered By: Art Bianchi on 11-07-2022 Hematocrit (Bld) [Volume fraction] 43.2 % 36.0-46.0 [facility] Hemoglobin [Mass/volume] in BloodOrdered By: Art Bianchi on 11-07-2022 Hemoglobin (Bld) [Mass/Vol] 14.8 g/dL 12.0-16.0 [facility] Ketones Auto test strip (U) [Mass/Vol]Ordered By: Art Bianchi on 11-07-2022 Ketones (U) [Mass/Vol] 1+ [facility] Leukocytes [#/volume] correc venkata for nucleated erythrocytes in Blood by Automated counOrdered By: Art Bianchi on 11-07-2022 WBC corrected for nucl RBC Auto (Bld) [#/Vol] 10.3 10*3/uL 4.5-13.5 [facility] Lymphocytes Auto (Bld) [#/Vo l]Ordered By: Art Bianchi on 11-07-2022 Lymphocytes (Bld) [#/Vol] 2.1 10*3/uL 1.20-4.8 [facility] Lymphocytes/100 WBC Auto (Bl d)Ordered By: Art Bianchi on 11-07-2022 Lymphocytes/100 WBC (Bld) 20.8 % . [facility] MCH Auto (RBC) [Entitic mass ]Ordered By: Art Bianchi on 11-07-2022 MCH (RBC) [Entitic mass] 28.8 pg 25.0-35.0 [facility] MCHC Auto (RBC) [Mass/Vol]Or dered By: Art Bianchi on 11-07-2022 MCHC (RBC) [Mass/Vol] 34.3 g/dL 31.0-37.0 [facility] MCV Auto (RBC) [Entitic vol] Ordered By: Art Bianchi on 11-07-2022 MCV (RBC) [Entitic vol] 84.1 fL 78-102 [facility] Monocyte distribution width [Entitic volume] in Blood by AutomatedOrdered By: Art Bianchi on 11-07-2022 Monocyte distribution width Auto (Bld) [Entitic vol] 17.07 % 0.00-20.00 [facility] Monocytes Auto (Bld) [#/Vol] Ordered By: Art Bianchi on 11-07-2022 Monocytes (Bld) [#/Vol] 0.8 10*3/uL 0.1-1.00 [facility] Monocytes/100 WBC Auto (Bld) Ordered By: Art Bianchi on 11-07-2022 Monocytes/100 WBC (Bld) 8.1 % . [facility] Neutrophils Auto (Bld) [#/Vo l]Ordered By: Art Bianchi on 11-07-2022 Neutrophils (Bld) [#/Vol] 7.1 10*3/uL 1.2-7.7 [facility] Neutrophils/100 WBC Auto (Bl d)Ordered By: Art Bianchi on 11-07-2022 Neutrophils/100 WBC (Bld) 68.9 % . [facility] Nitrite Test strip Ql (U)Ord ered By: Art Bianchi on 11-07-2022 Nitrite Ql (U) Negative Negative [facility] No Panel InformationOrdered By: Art Bianchi on 11-07-2022 0-8 [LPF] 0-8 [facility] > 60 mL/Min [facility] 43.0 U/L 22-51 [facility] 104.35 [facility] Nucleated erythrocytes [Pres ence] in Blood by Automated countOrdered By: Art Bianchi on 11-07-2022 Nucleated RBC Auto Ql (Bld) 0.3 /100{WBC} 0-0.5 [facility] Platelet mean volume Auto (B ld) [Entitic vol]Ordered By: Art Bianchi on 11-07-2022 Platelet mean volume (Bld) [Entitic vol] 8.4 fL 6.3-10.7 [facility] Platelets Auto (Bld) [#/Vol] Ordered By: Art Bianchi on 11-07-2022 Platelets (Bld) [#/Vol] 308 10*3/uL 150-450 [facility] Protein Auto test strip (U) [Mass/Vol]Ordered By: Art Bianchi on 11-07-2022 Protein (U) [Mass/Vol] Trace mg/dL Negative [facility] Protein [Mass/volume] in Ser um or PlasmaOrdered By: Art Bianchi on 11-07-2022 Protein [Mass/Vol] 7.3 g/dL 6.1-7.9 [facility] RBC Auto (Bld) [#/Vol]Ordere d By: Art Bianchi on 11-07-2022 RBC (Bld) [#/Vol] 5.14 10*6/uL 4.10-5.10 [facility] Serum or plasma alanine florez otransferase measurement without P-5'-P (enzymatic activiOrdered By: Art Bianchi on 11-07-2022 ALT No additional P-5'-P [Catalytic activity/Vol] 24 U/L 10-60 [facility] Serum or plasma albumin/glob ulin mass ratioOrdered By: Art Bianchi on 11-07-2022 Albumin/Globulin [Mass ratio] 1.7 {ratio} [facility] Serum or plasma alkaline justin sphatase measurement (enzymatic activity/volume)Ordered By: Art Bianchi on 11-07-2022 ALP [Catalytic activity/Vol] 60 U/L 32-92 [facility] Serum or plasma anion gap de terminationOrdered By: Art Bianchi on 11-07-2022 Anion gap [Moles/Vol] 12.2 mmol/L 6.0-15.0 [facility] Serum or plasma aspartate am inotransferase measurement (enzymatic activity/volume)Ordered By: Art Bianchi on 11-07-2022 AST [Catalytic activity/Vol] 25 U/L 10-42 [facility] Serum or plasma calcium tammy urement (mass/volume)Ordered By: Art Bianchi on 11-07-2022 Calcium [Mass/Vol] 9.6 mg/dL 8.2-10.2 [facility] Serum or plasma chloride judy surement (moles/volume)Ordered By: Art Bianchi on 11-07-2022 Chloride [Moles/Vol] 98 mmol/L 95-114 [facility] Serum or plasma creatinine m easurement with calculation of estimated glomerular filtrOrdered By: Art Bianchi on 11-07-2022 Creatinine and Glomerular filtration rate.predicted panel (S/P/Bld) 0.84 mg/dL 0.44-1.03 [facility] Serum or plasma glucose tammy urement (mass/volume)Ordered By: Art Bianchi on 11-07-2022 Glucose [Mass/Vol] 106 mg/dL 70-100 [facility] Serum or plasma potassium me asurement (moles/volume)Ordered By: Art Bianchi on 11-07-2022 Potassium [Moles/Vol] 3.2 mmol/L 3.5-5.1 [facility] Serum or plasma sodium measu rement (moles/volume)Ordered By: Art Bianchi on 11-07-2022 Sodium [Moles/Vol] 132 mmol/L 136-146 [facility] Serum or plasma total biliru bin measurement (mass/volume)Ordered By: Art Bianchi on 11-07-2022 Bilirubin [Mass/Vol] 0.8 mg/dL 0.3-1.2 [facility] Serum or plasma total carbon dioxide measurement (moles/volume)Ordered By: Art Bianchi on 11-07-2022 CO2 [Moles/Vol] 25.0 mmol/L 22.0-30.0 [facility] Serum or plasma urea nitroge n measurement (mass/volume)Ordered By: Art Bianchi on 11-07-2022 Urea nitrogen [Mass/Vol] 6 mg/dL 9-23 [facility] Specific gravity Auto test s trip (U) [Rel density]Ordered By: Art Bianchi on 11-07-2022 Specific gravity (U) [Rel density] 1.014 1.001-1.03 0 [facility] Squamous epithelial cells de tection in urine sediment by light microscopyOrdered By: Art Bianchi on 11-07-2022 Epithelial cells.squamous LM Ql (Urine sed) 5-9 [HPF] 0-2 [facility] Urine bacteria detection by automated methodOrdered By: Art Bianchi on 11-07-2022 Bacteria Auto Ql (U) None seen None Seen [facility] Urine clarity by refractomet ry automatedOrdered By: Art Bianchi on 11-07-2022 Clarity Refractometry automated (U) Clear Clear [facility] Urine glucose measurement by automated test strip (mass/volume)Ordered By: Art Bianchi on 11-07-2022 Glucose Auto test strip (U) [Mass/Vol] Normal mg/dL Normal [facility] Urine hemoglobin detection b y automated test stripOrdered By: Art Bianchi on 11-07-2022 Hemoglobin Auto test strip Ql (U) Negative Negative [facility] Urine leukocyte esterase det ection by automated test stripOrdered By: Art Bianchi on 11-07-2022 Leukocyte esterase Auto test strip Ql (U) Negative Negative [facility] Urobilinogen Auto test strip (U) [Mass/Vol]Ordered By: Art Bianchi on 11-07-2022 Urobilinogen (U) [Mass/Vol] Normal mg/dL Normal [facility] WBC Auto (Bld) [#/Vol]Ordere d By: Art Bianchi on 11-07-2022 WBC (Bld) [#/Vol] 10.3 10*3/uL 4.5-13.5 [facility] pH Auto test strip (U)Ordere d By: Art Bianchi on 11-07-2022 pH (U) 8.5 [pH] 5.0-9.0 [facility] Urine culture routineOrdered By: Colten Fry on 11-04-2022 Bacteria identified Cx Nom (U) 2 Days [facility] Albumin [Mass/volume] in Ser um or PlasmaOrdered By: Colten Fry on 11-02-2022 Albumin [Mass/Vol] 4.8 g/dL 3.2-5.5 [facility] Amphetamine Screen Ql (U)Ord ered By: Colten Fry on 11-02-2022 Amphetamines Ql (U) Negative Negative [facility] Automated erythrocytes count in urine sediment (number/area)Ordered By: Colten Fry on 11-02-2022 RBC Auto (Urine sed) [#/Area] 20-49 [HPF] 0-4 [facility] Automated leukocytes count i n urine sediment (number/area)Ordered By: Colten Fry on 11-02-2022 WBC Auto (Urine sed) [#/Area] 5-9 [HPF] 0-4 [facility] Barbiturates [Presence] in U rineOrdered By: Colten Fry on 11-02-2022 Barbiturates Ql (U) Negative Negative [facility] Basophils Auto (Bld) [#/Vol] Ordered By: Colten Fry on 11-02-2022 Basophils (Bld) [#/Vol] 0.1 10*3/uL 0.0-0.1 [facility] Basophils/100 WBC Auto (Bld) Ordered By: Colten Fry on 11-02-2022 Basophils/100 WBC (Bld) 0.5 % . [facility] Benzodiazepines [Presence] i n UrineOrdered By: Colten Fry on 11-02-2022 Benzodiazepines Ql (U) Negative Negative [facility] Bilirubin Test strip Ql (U)O rdered By: Colten Fry on 11-02-2022 Bilirubin Ql (U) Negative Negative [facility] Cannabinoids [Presence] in U rine by Screen methodOrdered By: Colten Fry on 11-02-2022 Cannabinoids Screen Ql (U) Positive Negative [facility] Color Auto (U)Ordered By: Vida Fry on 11-02-2022 Color (U) Yellow Yellow [facility] Eosinophils Auto (Bld) [#/Vo l]Ordered By: Colten Fry on 11-02-2022 Eosinophils (Bld) [#/Vol] 0.3 10*3/uL 0.0-0.7 [facility] Eosinophils/100 WBC Auto (Bl d)Ordered By: Colten Fry on 11-02-2022 Eosinophils/100 WBC (Bld) 2.1 % . [facility] Erythrocyte distribution wid th Auto (RBC) [Ratio]Ordered By: Colten Fry on 11-02-2022 Erythrocyte distribution width (RBC) [Ratio] 13.7 % 11.9-15.3 [facility] Estimated glomerular filtrat ion rate (GFR) non- AmericanOrdered By: Colten Fry on 11-02-2022 GFR/1.73 sq M.predicted among non-blacks MDRD (S/P/Bld) [Vol rate/Area] > 60 mL/Min [facility] Globulin Calc (S) [Mass/Vol] Ordered By: Colten Fry on 11-02-2022 Globulin (S) [Mass/Vol] 3.1 g/dL [facility] HCG ( test) IA.rapi d Ql (U)Ordered By: Colten Fry on 11-02-2022 HCG ( test) Ql (U) Negative [facility] Hematocrit Auto (Bld) [Volum e fraction]Ordered By: Colten Fry on 11-02-2022 Hematocrit (Bld) [Volume fraction] 45.3 % 36.0-46.0 [facility] Hemoglobin [Mass/volume] in BloodOrdered By: Colten Fry on 11-02-2022 Hemoglobin (Bld) [Mass/Vol] 15.4 g/dL 12.0-16.0 [facility] Ketones Auto test strip (U) [Mass/Vol]Ordered By: Colten Fry on 11-02-2022 Ketones (U) [Mass/Vol] 3+ [facility] Leukocytes [#/volume] correc venkata for nucleated erythrocytes in Blood by Automated counOrdered By: Colten Fry on 11-02-2022 WBC corrected for nucl RBC Auto (Bld) [#/Vol] 11.7 10*3/uL 4.5-13.5 [facility] Lymphocytes Auto (Bld) [#/Vo l]Ordered By: Colten Fry on 11-02-2022 Lymphocytes (Bld) [#/Vol] 2.3 10*3/uL 1.20-4.8 [facility] Lymphocytes/100 WBC Auto (Bl d)Ordered By: Colten Fry on 11-02-2022 Lymphocytes/100 WBC (Bld) 19.6 % . [facility] MCH Auto (RBC) [Entitic mass ]Ordered By: Colten Fry on 11-02-2022 MCH (RBC) [Entitic mass] 28.4 pg 25.0-35.0 [facility] MCHC Auto (RBC) [Mass/Vol]Or dered By: Colten Fry on 11-02-2022 MCHC (RBC) [Mass/Vol] 34.0 g/dL 31.0-37.0 [facility] MCV Auto (RBC) [Entitic vol] Ordered By: Colten Fry on 11-02-2022 MCV (RBC) [Entitic vol] 83.3 fL 78-102 [facility] Monocytes Auto (Bld) [#/Vol] Ordered By: Colten Fry on 11-02-2022 Monocytes (Bld) [#/Vol] 1.0 10*3/uL 0.1-1.00 [facility] Monocytes/100 WBC Auto (Bld) Ordered By: Colten Fry on 11-02-2022 Monocytes/100 WBC (Bld) 8.5 % . [facility] Neutrophils Auto (Bld) [#/Vo l]Ordered By: Colten Fry on 11-02-2022 Neutrophils (Bld) [#/Vol] 8.1 10*3/uL 1.2-7.7 [facility] Neutrophils/100 WBC Auto (Bl d)Ordered By: Colten Fry on 11-02-2022 Neutrophils/100 WBC (Bld) 69.3 % . [facility] Nitrite Test strip Ql (U)Ord ered By: Colten Fry on 11-02-2022 Nitrite Ql (U) Negative Negative [facility] No Panel InformationOrdered By: Colten Fry on 11-02-2022 9-19 [LPF] 0-8 [facility] Negative Negative [facility] > 60 mL/Min [facility] 100.26 [facility] No Panel InformationOrdered By: Robert Bolanos on 11-02-2022 2.6 mg/dL 1.6-2.6 [facility] Nucleated erythrocytes [Pres ence] in Blood by Automated countOrdered By: Colten Fry on 11-02-2022 Nucleated RBC Auto Ql (Bld) 0.1 /100{WBC} 0-0.5 [facility] Phencyclidine Screen Ql (U)O rdered By: Colten Fry on 11-02-2022 Phencyclidine Ql (U) Negative Negative [facility] Platelet mean volume Auto (B ld) [Entitic vol]Ordered By: Colten Fry on 11-02-2022 Platelet mean volume (Bld) [Entitic vol] 7.9 fL 6.3-10.7 [facility] Platelets Auto (Bld) [#/Vol] Ordered By: Colten Fry on 11-02-2022 Platelets (Bld) [#/Vol] 292 10*3/uL 150-450 [facility] Protein Auto test strip (U) [Mass/Vol]Ordered By: Colten Fry on 11-02-2022 Protein (U) [Mass/Vol] 30 mg/dL Negative Fi [facility] Protein [Mass/volume] in Ser um or PlasmaOrdered By: Colten Fry on 11-02-2022 Protein [Mass/Vol] 7.9 g/dL 6.1-7.9 [facility] RBC Auto (Bld) [#/Vol]Ordere d By: Colten Fry on 11-02-2022 RBC (Bld) [#/Vol] 5.43 10*6/uL 4.10-5.10 [facility] Serum or plasma alanine florez otransferase measurement without P-5'-P (enzymatic activiOrdered By: Colten Fry on 11-02-2022 ALT No additional P-5'-P [Catalytic activity/Vol] 20 U/L 10-60 [facility] Serum or plasma albumin/glob ulin mass ratioOrdered By: Colten Fry on 11-02-2022 Albumin/Globulin [Mass ratio] 1.5 {ratio} [facility] Serum or plasma alkaline justin sphatase measurement (enzymatic activity/volume)Ordered By: Colten Fyr on 11-02-2022 ALP [Catalytic activity/Vol] 65 U/L 32-92 [facility] Serum or plasma anion gap de terminationOrdered By: Colten Fry on 11-02-2022 Anion gap [Moles/Vol] 14.6 mmol/L 6.0-15.0 [facility] Serum or plasma aspartate am inotransferase measurement (enzymatic activity/volume)Ordered By: Colten Fry on 11-02-2022 AST [Catalytic activity/Vol] 19 U/L 10-42 [facility] Serum or plasma calcium tammy urement (mass/volume)Ordered By: Colten Fry on 11-02-2022 Calcium [Mass/Vol] 9.6 mg/dL 8.2-10.2 [facility] Serum or plasma chloride judy surement (moles/volume)Ordered By: Colten Fry on 11-02-2022 Chloride [Moles/Vol] 95 mmol/L 95-114 [facility] Serum or plasma creatinine m easurement with calculation of estimated glomerular filtrOrdered By: Colten Fry on 11-02-2022 Creatinine and Glomerular filtration rate.predicted panel (S/P/Bld) 0.88 mg/dL 0.44-1.03 [facility] Serum or plasma glucose tammy urement (mass/volume)Ordered By: Colten Fry on 11-02-2022 Glucose [Mass/Vol] 95 mg/dL 70-100 [facility] [facility] Serum or plasma potassium me asurement (moles/volume)Ordered By: Colten Fry on 11-02-2022 Potassium [Moles/Vol] 2.9 mmol/L 3.5-5.1 [facility] Serum or plasma sodium measu rement (moles/volume)Ordered By: Colten Fry on 11-02-2022 Sodium [Moles/Vol] 134 mmol/L 136-146 [facility] Serum or plasma total biliru bin measurement (mass/volume)Ordered By: Colten Fry on 11-02-2022 Bilirubin [Mass/Vol] 1.8 mg/dL 0.3-1.2 [facility] Serum or plasma total carbon dioxide measurement (moles/volume)Ordered By: Colten Fry on 11-02-2022 CO2 [Moles/Vol] 27.3 mmol/L 22.0-30.0 [facility] Serum or plasma urea nitroge n measurement (mass/volume)Ordered By: Colten Fry on 11-02-2022 Urea nitrogen [Mass/Vol] 24 mg/dL 9- [facility] Specific gravity Auto test s trip (U) [Rel density]Ordered By: Colten Fry on 11-02-2022 Specific gravity (U) [Rel density] 1.025 1.001-1.03 0 [facility] Squamous epithelial cells de tection in urine sediment by light microscopyOrdered By: Colten Fry on 11-02-2022 Epithelial cells.squamous LM Ql (Urine sed) 10-19 [HPF] 0-2 [facility] Urine bacteria detection by automated methodOrdered By: Colten Fry on 11-02-2022 Bacteria Auto Ql (U) None seen None Seen [facility] Urine clarity by refractomet ry automatedOrdered By: Colten Fry on 11-02-2022 Clarity Refractometry automated (U) Cloudy Clear [facility] Urine cocaine detectionOrder ed By: Colten Fry on 11-02-2022 Cocaine Ql (U) Negative Negative [facility] Urine culture routineOrdered By: Colten Fry on 11-02-2022 Bacteria identified Cx Nom (U) 2 Days [facility] Urine culture routineOrdered By: Art Biacnhi on 11-02-2022 Bacteria identified Cx Nom (U) 2 Days [facility] Urine glucose measurement by automated test strip (mass/volume)Ordered By: Colten Fry on 11-02-2022 Glucose Auto test strip (U) [Mass/Vol] Normal mg/dL Normal [facility] Urine hemoglobin detection b y automated test stripOrdered By: Colten Fry on 11-02-2022 Hemoglobin Auto test strip Ql (U) 3+ Negative [facility] Urine leukocyte esterase det ection by automated test stripOrdered By: Colten Fry on 11-02-2022 Leukocyte esterase Auto test strip Ql (U) 2+ Negative [facility] Urobilinogen Auto test strip (U) [Mass/Vol]Ordered By: Colten Fry on 11-02-2022 Urobilinogen (U) [Mass/Vol] Normal mg/dL Normal [facility] WBC Auto (Bld) [#/Vol]Ordere d By: Colten Fry on 11-02-2022 WBC (Bld) [#/Vol] 11.7 10*3/uL 4.5-13.5 [facility] pH Auto test strip (U)Ordere d By: Colten Fry on 11-02-2022 pH (U) 7.0 [pH] 5.0-9.0 [facility] Albumin [Mass/volume] in Ser um or PlasmaOrdered By: Art Bianchi on 10-31-2022 Albumin [Mass/Vol] 5.1 g/dL 3.2-5.5 [facility] Automated erythrocytes count in urine sediment (number/area)Ordered By: Art Bianchi on 10-31-2022 RBC Auto (Urine sed) [#/Area] Innumerable [HPF] 0-4 [facility] Automated leukocytes count i n urine sediment (number/area)Ordered By: Art Bianchi on 10-31-2022 WBC Auto (Urine sed) [#/Area] 10-19 [HPF] 0-4 [facility] Basophils Auto (Bld) [#/Vol] Ordered By: Art Biancih on 10-31-2022 Basophils (Bld) [#/Vol] 0.0 10*3/uL 0.0-0.1 [facility] Basophils/100 WBC Auto (Bld) Ordered By: Art Bianchi on 10-31-2022 Basophils/100 WBC (Bld) 0.3 % . [facility] Bilirubin Test strip Ql (U)O rdered By: Art Bianchi on 10-31-2022 Bilirubin Ql (U) Negative Negative [facility] Color Auto (U)Ordered By: Adrian Bianchi on 10-31-2022 Color (U) Red Yellow [facility] Eosinophils Auto (Bld) [#/Vo l]Ordered By: Art Bianchi on 10-31-2022 Eosinophils (Bld) [#/Vol] 0.1 10*3/uL 0.0-0.7 [facility] Eosinophils/100 WBC Auto (Bl d)Ordered By: Art Bianchi on 10-31-2022 Eosinophils/100 WBC (Bld) 1.0 % . [facility] Erythrocyte distribution wid th Auto (RBC) [Ratio]Ordered By: Art Bianchi on 10-31-2022 Erythrocyte distribution width (RBC) [Ratio] 14.0 % 11.9-15.3 [facility] Estimated glomerular filtrat ion rate (GFR) non- AmericanOrdered By: Art Bianchi on 10-31-2022 GFR/1.73 sq M.predicted among non-blacks MDRD (S/P/Bld) [Vol rate/Area] > 60 mL/Min [facility] Globulin Calc (S) [Mass/Vol] Ordered By: Art Bianchi on 10-31-2022 Globulin (S) [Mass/Vol] 3.1 g/dL [facility] HCG ( test) IA.rapi d Ql (U)Ordered By: Art Bianchi on 10-31-2022 HCG ( test) Ql (U) Negative [facility] Hematocrit Auto (Bld) [Volum e fraction]Ordered By: Art Bianchi on 10-31-2022 Hematocrit (Bld) [Volume fraction] 45.0 % 36.0-46.0 [facility] Hemoglobin [Mass/volume] in BloodOrdered By: Art Bianchi on 10-31-2022 Hemoglobin (Bld) [Mass/Vol] 15.2 g/dL 12.0-16.0 [facility] Ketones Auto test strip (U) [Mass/Vol]Ordered By: Art Bianchi on 10-31-2022 Ketones (U) [Mass/Vol] 3+ [facility] Leuk[facility] [#/volume] correc venkata for nucleated erythrocytes in Blood by Automated counOrdered By: Art Bianchi on 10-31-2022 WBC corrected for nucl RBC Auto (Bld) [#/Vol] 14.0 10*3/uL 4.5-13.5 [facility] Lymphocytes Auto (Bld) [#/Vo l]Ordered By: Art Bianchi on 10-31-2022 Lymphocytes (Bld) [#/Vol] 2.2 10*3/uL 1.20-4.8 [facility] Lymphocytes/100 WBC Auto (Bl d)Ordered By: Art Bianchi on 10-31-2022 Lymphocytes/100 WBC (Bld) 15.5 % . [facility] MCH Auto (RBC) [Entitic mass ]Ordered By: Art Bianchi on 10-31-2022 MCH (RBC) [Entitic mass] 28.6 pg 25.0-35.0 [facility] MCHC Auto (RBC) [Mass/Vol]Or dered By: Art Bianchi on 10-31-2022 MCHC (RBC) [Mass/Vol] 33.7 g/dL 31.0-37.0 [facility] MCV Auto (RBC) [Entitic vol] Ordered By: Art Bianchi on 10-31-2022 MCV (RBC) [Entitic vol] 85.0 fL 78-102 [facility] Monocyte distribution width [Entitic volume] in Blood by AutomatedOrdered By: Art Bianchi on 10-31-2022 Monocyte distribution width Auto (Bld) [Entitic vol] 14.69 % 0.00-20.00 [facility] Monocytes Auto (Bld) [#/Vol] Ordered By: Art Bianchi on 10-31-2022 Monocytes (Bld) [#/Vol] 1.3 10*3/uL 0.1-1.00 [facility] Monocytes/100 WBC Auto (Bld) Ordered By: Art Bianchi on 10-31-2022 Monocytes/100 WBC (Bld) 9.1 % . [facility] Neutrophils Auto (Bld) [#/Vo l]Ordered By: Art Bianchi on 10-31-2022 Neutrophils (Bld) [#/Vol] 10.4 10*3/uL 1.2-7.7 [facility] Neutrophils/100 WBC Auto (Bl d)Ordered By: Art Bianchi on 10-31-2022 Neutrophils/100 WBC (Bld) 74.1 % . [facility] Nitrite Test strip Ql (U)Ord ered By: Art Bianchi on 10-31-2022 Nitrite Ql (U) Negative Negative [facility] No Panel InformationOrdered By: Art Bianchi on 10-31-2022 0-8 [LPF] 0-8 [facility] > 60 mL/Min [facility] 29.0 U/L 22-51 [facility] 102.97 [facility] Nucleated erythrocytes [Pres ence] in Blood by Automated countOrdered By: Art Bianchi on 10-31-2022 Nucleated RBC Auto Ql (Bld) 0.1 /100{WBC} 0-0.5 [facility] Platelet mean volume Auto (B ld) [Entitic vol]Ordered By: Art Bianchi on 10-31-2022 Platelet mean volume (Bld) [Entitic vol] 8.3 fL 6.3-10.7 [facility] Platelets Auto (Bld) [#/Vol] Ordered By: Art Bianchi on 10-31-2022 Platelets (Bld) [#/Vol] 337 10*3/uL 150-450 [facility] Protein Auto test strip (U) [Mass/Vol]Ordered By: Art Bianchi on 10-31-2022 Protein (U) [Mass/Vol] 100 mg/dL Negative [facility] Protein [Mass/volume] in Ser um or PlasmaOrdered By: Art Bianchi on 10-31-2022 Protein [Mass/Vol] 8.2 g/dL 6.1-7.9 [facility] RBC Auto (Bld) [#/Vol]Ordere d By: Art Bianchi on 10-31-2022 RBC (Bld) [#/Vol] 5.29 10*6/uL 4.10-5.10 [facility] Serum or plasma alanine florez otransferase measurement without P-5'-P (enzymatic activiOrdered By: Art Bianchi on 10-31-2022 ALT No additional P-5'-P [Catalytic activity/Vol] 25 U/L 10-60 [facility] Serum or plasma albumin/glob ulin mass ratioOrdered By: Art Bianchi on 10-31-2022 Albumin/Globulin [Mass ratio] 1.6 {ratio} [facility] Serum or plasma alkaline justin sphatase measurement (enzymatic activity/volume)Ordered By: Art Bianchi on 10-31-2022 ALP [Catalytic activity/Vol] 62 U/L 32-92 [facility] Serum or plasma anion gap de terminationOrdered By: Art Bianchi on 10-31-2022 Anion gap [Moles/Vol] 16.8 mmol/L 6.0-15.0 [facility] Serum or plasma aspartate am inotransferase measurement (enzymatic activity/volume)Ordered By: Art Bianchi on 10-31-2022 AST [Catalytic activity/Vol] 25 U/L 10-42 [facility] Serum or plasma calcium tammy urement (mass/volume)Ordered By: Art Bianchi on 10-31-2022 Calcium [Mass/Vol] 9.9 mg/dL 8.2-10.2 [facility] Serum or plasma chloride judy surement (moles/volume)Ordered By: Art Bianchi on 10-31-2022 Chloride [Moles/Vol] 96 mmol/L 95-114 [facility] Serum or plasma creatinine m easurement with calculation of estimated glomerular filtrOrdered By: Art Bianchi on 10-31-2022 Creatinine and Glomerular filtration rate.predicted panel (S/P/Bld) 0.89 mg/dL 0.44-1.03 [facility] Serum or plasma glucose tammy urement (mass/volume)Ordered By: Art Bianchi on 10-31-2022 Glucose [Mass/Vol] 120 mg/dL 70-100 [facility] Serum or plasma potassium me asurement (moles/volume)Ordered By: Art Bianchi on 10-31-2022 Potassium [Moles/Vol] 3.2 mmol/L 3.5-5.1 [facility] Serum or plasma sodium measu rement (moles/volume)Ordered By: Art Bianchi on 10-31-2022 Sodium [Moles/Vol] 132 mmol/L 136-146 [facility] Serum or plasma total biliru bin measurement (mass/volume)Ordered By: Art Bianchi on 10-31-2022 Bilirubin [Mass/Vol] 1.7 mg/dL 0.3-1.2 [facility] Serum or plasma total carbon dioxide measurement (moles/volume)Ordered By: Art Bianchi on 10-31-2022 CO2 [Moles/Vol] 22.4 mmol/L 22.0-30.0 [facility] Serum or plasma urea nitroge n measurement (mass/volume)Ordered By: Art Bianchi on 10-31-2022 Urea nitrogen [Mass/Vol] 28 mg/dL 9-23 [facility] Specific gravity Auto test s trip (U) [Rel density]Ordered By: Art Bianchi on 10-31-2022 Specific gravity (U) [Rel density] 1.030 1.001-1.03 0 [facility] Squamous epithelial cells de tection in urine sediment by light microscopyOrdered By: Art Bianhci on 10-31-2022 Epithelial cells.squamous LM Ql (Urine sed) 10-19 [HPF] 0-2 [facility] Urine bacteria detection by automated methodOrdered By: Art Bianchi on 10-31-2022 Bacteria Auto Ql (U) None seen None Seen [facility] Urine clarity by refractomet ry automatedOrdered By: Art Bianchi on 10-31-2022 Clarity Refractometry automated (U) Cloudy Clear [facility] Urine culture routineOrdered By: Art Bianchi on 10-31-2022 Bacteria identified Cx Nom (U) 2 Days [facility] Urine glucose measurement by automated test strip (mass/volume)Ordered By: Art Bianchi on 10-31-2022 Glucose Auto test strip (U) [Mass/Vol] Normal mg/dL Normal [facility] Urine hemoglobin detection b y automated test stripOrdered By: Art Bianchi on 10-31-2022 Hemoglobin Auto test strip Ql (U) 3+ Negative [facility] Urine leukocyte esterase det ection by automated test stripOrdered By: Art Bianchi on 10-31-2022 Leukocyte esterase Auto test strip Ql (U) 2+ Negative [facility] Urobilinogen Auto test strip (U) [Mass/Vol]Ordered By: Art Bianchi on 10-31-2022 Urobilinogen (U) [Mass/Vol] Normal mg/dL Normal [facility] WBC Auto (Bld) [#/Vol]Ordere d By: Art Bianchi on 10-31-2022 WBC (Bld) [#/Vol] 14.0 10*3/uL 4.5-13.5 [facility] pH Auto test strip (U)Ordere d By: Art Bianchi on 10-31-2022 pH (U) 6.5 [pH] 5.0-9.0 [facility] Basophils Auto (Bld) [#/Vol] Ordered By: Ravi Arguello on 10-29-2022 Basophils (Bld) [#/Vol] 0.0 10*3/uL 0.0-0.1 [facility] Basophils/100 WBC Auto (Bld) Ordered By: Ravi Arguello on 10-29-2022 Basophils/100 WBC (Bld) 0.3 % . [facility] Body fluid albumin measureme nt (mass/volume)Ordered By: Ravi Arguello on 10-29-2022 Albumin (Body fld) [Mass/Vol] 5.2 g/dL 3.2-5.5 [facility] Creatinine and Glomerular fi ltration rate.predicted panel (S/P/Bld)Ordered By: Ravi Arguello on 10-29-2022 Creatinine [Mass/Vol] 0.85 mg/dL 0.44-1.03 [facility] Direct bilirubin measurement Ordered By: Ravi Arguello on 10-29-2022 Bilirubin.direct [Mass/Vol] 0.1 mg/dL 0.0-0.4 [facility] Eosinophils Auto (Bld) [#/Vo l]Ordered By: Ravi Arguello on 10-29-2022 Eosinophils (Bld) [#/Vol] 0.0 10*3/uL 0.0-0.7 [facility] Eosinophils/100 WBC Auto (Bl d)Ordered By: Ravi Arguello on 10-29-2022 Eosinophils/100 WBC (Bld) 0.1 % . [facility] Erythrocyte distribution wid th Auto (RBC) [Ratio]Ordered By: Ravi Arguello on 10-29-2022 Erythrocyte distribution width (RBC) [Ratio] 14.4 % 11.9-15.3 [facility] Estimated glomerular filtrat ion rate (GFR) non- AmericanOrdered By: Ravi Arguello on 10-29-2022 GFR/1.73 sq M.predicted among non-blacks MDRD (S/P/Bld) [Vol rate/Area] > 60 mL/Min [facility] Globulin Calc (S) [Mass/Vol] Ordered By: Ravi Arguello on 10-29-2022 Globulin (S) [Mass/Vol] 3.7 g/dL [facility] Hematocrit Auto (Bld) [Volum e fraction]Ordered By: Ravi Arguello on 10-29-2022 Hematocrit (Bld) [Volume fraction] 42.9 % 36.0-46.0 [facility] Hemoglobin [Mass/volume] in BloodOrdered By: Ravi Arguello on 10-29-2022 Hemoglobin (Bld) [Mass/Vol] 14.3 g/dL 12.0-16.0 [facility] Laboratory - Chemistry and C hemistry - challengeOrdered By: Ravi Arguello on 10-29-2022 Lipase [Catalytic activity/Vol] 25.0 U/L 22-51 [facility] Leukocytes [#/volume] correc venkata for nucleated erythrocytes in Blood by Automated counOrdered By: Ravi Arguello on 10-29-2022 WBC corrected for nucl RBC Auto (Bld) [#/Vol] 13.7 10*3/uL 4.5-13.5 [facility] Lymphocytes Auto (Bld) [#/Vo l]Ordered By: Ravi Arguello on 10-29-2022 Lymphocytes (Bld) [#/Vol] 1.7 10*3/uL 1.20-4.8 [facility] Lymphocytes/100 WBC Auto (Bl d)Ordered By: Ravi Arguello on 10-29-2022 Lymphocytes/100 WBC (Bld) 12.4 % . [facility] MCH Auto (RBC) [Entitic mass ]Ordered By: Ravi Arguello on 10-29-2022 MCH (RBC) [Entitic mass] 28.4 pg 25.0-35.0 [facility] MCHC Auto (RBC) [Mass/Vol]Or dered By: Ravi Arguello on 10-29-2022 MCHC (RBC) [Mass/Vol] 33.3 g/dL 31.0-37.0 [facility] MCV Auto (RBC) [Entitic vol] Ordered By: Ravi Arguello on 10-29-2022 MCV (RBC) [Entitic vol] 85.1 fL 78-102 [facility] Monocyte distribution width [Entitic volume] in Blood by AutomatedOrdered By: Ravi Arguello on 10-29-2022 Monocyte distribution width Auto (Bld) [Entitic vol] 16.57 % 0.00-20.00 [facility] Monocytes Auto (Bld) [#/Vol] Ordered By: Ravi Arguello on 10-29-2022 Monocytes (Bld) [#/Vol] 0.9 10*3/uL 0.1-1.00 [facility] Monocytes/100 WBC Auto (Bld) Ordered By: Ravi Arguello on 10-29-2022 Monocytes/100 WBC (Bld) 6.8 % . [facility] Neutrophils Auto (Bld) [#/Vo l]Ordered By: Ravi Arguello on 10-29-2022 Neutrophils (Bld) [#/Vol] 11.0 10*3/uL 1.2-7.7 [facility] Neutrophils/100 WBC Auto (Bl d)Ordered By: Ravi Arguello on 10-29-2022 Neutrophils/100 WBC (Bld) 80.4 % . [facility] No Panel InformationOrdered By: Ravi Arguello on 10-29-2022 Estimated GFR () > 60 mL/Min [facility] Comment on above: GFR estimated refere nce range: According to KDOQI guidelines, <60 ml/min/1.73m2 is sufficient to diagnose a patient with chronic kidney disease. Pharmacy Creatinine Clearance (Chem 105.83 [facility] > 60 mL/Min [facility] 25.0 U/L 22-51 [facility] 105.83 [facility] Nucleated erythrocytes [Pres ence] in Blood by Automated countOrdered By: Ravi Arguello on 10-29-2022 Nucleated RBC Auto Ql (Bld) 0.0 /100{WBC} 0-0.5 [facility] Platelet mean volume Auto (B ld) [Entitic vol]Ordered By: Ravi Arguello on 10-29-2022 Platelet mean volume (Bld) [Entitic vol] 8.4 fL 6.3-10.7 [facility] Platelets Auto (Bld) [#/Vol] Ordered By: Ravi Arguello on 10-29-2022 Platelets (Bld) [#/Vol] 355 10*3/uL 150-450 [facility] Protein [Mass/volume] in Ser um or PlasmaOrdered By: Ravi Arguello on 10-29-2022 Protein [Mass/Vol] 8.9 g/dL 6.1-7.9 [facility] RBC Auto (Bld) [#/Vol]Ordere d By: Ravi Arguello on 10-29-2022 RBC (Bld) [#/Vol] 5.04 10*6/uL 4.10-5.10 [facility] Serum or plasma alanine florez otransferase measurement without P-5'-P (enzymatic activiOrdered By: Ravi Arguello on 10-29-2022 ALT No additional P-5'-P [Catalytic activity/Vol] 24 U/L 10-60 [facility] Serum or plasma albumin/glob ulin mass ratioOrdered By: Ravi Arguello on 10-29-2022 Albumin/Globulin [Mass ratio] 1.4 {ratio} [facility] Serum or plasma alkaline justin sphatase measurement (enzymatic activity/volume)Ordered By: Ravi Arguello on 10-29-2022 ALP [Catalytic activity/Vol] 68 U/L 32-92 [facility] Serum or plasma anion gap de terminationOrdered By: Ravi Arguello on 10-29-2022 Anion gap [Moles/Vol] 19.9 mmol/L 6.0-15.0 [facility] Serum or plasma aspartate am inotransferase measurement (enzymatic activity/volume)Ordered By: Ravi Arguello on 10-29-2022 AST [Catalytic activity/Vol] 20 U/L 10-42 [facility] Serum or plasma calcium tammy urement (mass/volume)Ordered By: Ravi Arguello on 10-29-2022 Calcium [Mass/Vol] 10.4 mg/dL 8.2-10.2 [facility] Serum or plasma chloride judy surement (moles/volume)Ordered By: Ravi Arguello on 10-29-2022 Chloride [Moles/Vol] 100 mmol/L 95-114 [facility] Serum or plasma creatinine m easurement with calculation of estimated glomerular filtrOrdered By: Ravi Arguello on 10-29-2022 Creatinine and Glomerular filtration rate.predicted panel (S/P/Bld) 0.85 mg/dL 0.44-1.03 [facility] Serum or plasma glucose tammy urement (mass/volume)Ordered By: Ravi Arguello on 10-29-2022 Glucose [Mass/Vol] 114 mg/dL 70-100 [facility] Comment on above: ADA recommended refe rence rangeRandom Glucose Reference Range is dependent on time and content of last meal. Glucose of more than 200 mg/dL in a nonstressed, ambulatory subject supports the diagnosis of Diabetes Mellitus. Serum or plasma non-glucuron idated bilirubin measurement (mass/volume)Ordered By: Ravi Arguello on 10-29-2022 Bilirubin.indirect [Mass/Vol] 1.1 mg/dL [facility] Serum or plasma potassium me asurement (moles/volume)Ordered By: Ravi Arguello on 10-29-2022 Potassium [Moles/Vol] 3.3 mmol/L 3.5-5.1 [facility] Serum or plasma sodium measu rement (moles/volume)Ordered By: Ravi Arguello on 10-29-2022 Sodium [Moles/Vol] 137 mmol/L 136-146 [facility] Serum or plasma total biliru bin measurement (mass/volume)Ordered By: Ravi Arguello on 10-29-2022 Bilirubin [Mass/Vol] 1.2 mg/dL 0.3-1.2 [facility] Serum or plasma total carbon dioxide measurement (moles/volume)Ordered By: Ravi Arguello on 10-29-2022 CO2 [Moles/Vol] 20.4 mmol/L 22.0-30.0 [facility] Serum or plasma urea nitroge n measurement (mass/volume)Ordered By: Ravi Arguello on 10-29-2022 Urea nitrogen [Mass/Vol] 21 mg/dL 9-23 [facility] WBC Auto (Bld) [#/Vol]Ordere d By: Ravi Arguello on 10-29-2022 WBC (Bld) [#/Vol] 13.7 10*3/uL 4.5-13.5 [facility] Basophils Auto (Bld) [#/Vol] Ordered By: Modesta Chand on 08-27-2022 Basophils (Bld) [#/Vol] 0.0 10*3/uL 0.0-0.1 [facility] Basophils/100 WBC Auto (Bld) Ordered By: Modesta Chand on 08-27-2022 Basophils/100 WBC (Bld) 0.3 % . [facility] Body fluid albumin measureme nt (mass/volume)Ordered By: Modesta Chand on 08-27-2022 Albumin (Body fld) [Mass/Vol] 4.7 g/dL 3.2-5.5 [facility] Creatinine and Glomerular fi ltration rate.predicted panel (S/P/Bld)Ordered By: Modesta Chand on 08-27-2022 Creatinine [Mass/Vol] 0.90 mg/dL 0.44-1.03 [facility] Eosinophils Auto (Bld) [#/Vo l]Ordered By: Modesta Chand on 08-27-2022 Eosinophils (Bld) [#/Vol] 0.3 10*3/uL 0.0-0.7 [facility] Eosinophils/100 WBC Auto (Bl d)Ordered By: Modesta Cahnd on 08-27-2022 Eosinophils/100 WBC (Bld) 2.2 % . [facility] Erythrocyte distribution wid th Auto (RBC) [Ratio]Ordered By: Modesta Chand on 08-27-2022 Erythrocyte distribution width (RBC) [Ratio] 14.0 % 11.9-15.3 [facility] Estimated glomerular filtrat ion rate (GFR) non- AmericanOrdered By: Modesta Chand on 08-27-2022 GFR/1.73 sq M.predicted among non-blacks MDRD (S/P/Bld) [Vol rate/Area] > 60 mL/Min [facility] Globulin Calc (S) [Mass/Vol] Ordered By: Modesta Chand on 08-27-2022 Globulin (S) [Mass/Vol] 2.5 g/dL [facility] Hematocrit Auto (Bld) [Volum e fraction]Ordered By: Modesta Chand on 08-27-2022 Hematocrit (Bld) [Volume fraction] 46.5 % 36.0-46.0 [facility] Hemoglobin [Mass/volume] in BloodOrdered By: Modesta Chand on 08-27-2022 Hemoglobin (Bld) [Mass/Vol] 15.6 g/dL 12.0-16.0 [facility] Laboratory - Chemistry and C hemistry - challengeOrdered By: Modesta Chand on 08-27-2022 Lipase [Catalytic activity/Vol] 27.0 U/L 22-51 [facility] - Hematology and Cell countsOrdered By: Modesta Chand on 08-27-2022 Nucleated RBC/100 WBC (Bld) [Ratio] 0.1 % 0-0.5 [facility] Leukocytes [#/volume] in Blo od by Automated countOrdered By: Modesta Chand on 08-27-2022 WBC (Bld) [#/Vol] 13.4 10*3/uL 4.5-13.5 [facility] Lymphocytes Auto (Bld) [#/Vo l]Ordered By: Modesta Chand on 08-27-2022 Lymphocytes (Bld) [#/Vol] 3.1 10*3/uL 1.20-4.8 [facility] Lymphocytes/100 WBC Auto (Bl d)Ordered By: Modesta Chand on 08-27-2022 Lymphocytes/100 WBC (Bld) 22.9 % . [facility] MCH Auto (RBC) [Entitic mass ]Ordered By: Modesta Chand on 08-27-2022 MCH (RBC) [Entitic mass] 28.4 pg 25.0-35.0 [facility] MCHC Auto (RBC) [Mass/Vol]Or dered By: Modesta Chand on 08-27-2022 MCHC (RBC) [Mass/Vol] 33.5 g/dL 31.0-37.0 [facility] MCV Auto (RBC) [Entitic vol] Ordered By: Modesta Chand on 08-27-2022 MCV (RBC) [Entitic vol] 84.8 fL 78-102 [facility] Monocytes Auto (Bld) [#/Vol] Ordered By: Modesta Chand on 08-27-2022 Monocytes (Bld) [#/Vol] 1.2 10*3/uL 0.1-1.00 [facility] Monocytes/100 WBC Auto (Bld) Ordered By: Modesta Chand on 08-27-2022 Monocytes/100 WBC (Bld) 9.1 % . [facility] Neutrophils Auto (Bld) [#/Vo l]Ordered By: Modesta Chand on 08-27-2022 Neutrophils (Bld) [#/Vol] 8.8 10*3/uL 1.2-7.7 [facility] Neutrophils/100 WBC Auto (Bl d)Ordered By: Modesta Chand on 08-27-2022 Neutrophils/100 WBC (Bld) 65.5 % . [facility] No Panel InformationOrdered By: Modesta Chand on 08-27-2022 Estimated GFR () > 60 mL/Min [facility] Comment on above: GFR estimated refere nce range: According to KDOQI guidelines, <60 ml/min/1.73m2 is sufficient to diagnose a patient with chronic kidney disease. Pharmacy Creatinine Clearance (Chem N/A [facility] 13.4 10*3/uL 4.5-13.5 [facility] 0.1 % 0-0.5 [facility] > 60 mL/Min [facility] 27.0 U/L 22-51 [facility] N/A [facility] Platelet mean volume Auto (B ld) [Entitic vol]Ordered By: Modesta Chand on 08-27-2022 Platelet mean volume (Bld) [Entitic vol] 8.9 fL 6.3-10.7 [facility] Platelets Auto (Bld) [#/Vol] Ordered By: Modesta Chand on 08-27-2022 Platelets (Bld) [#/Vol] 373 10*3/uL 150-450 [facility] Protein [Mass/volume] in Ser um or PlasmaOrdered By: Modesta Chand on 08-27-2022 Protein [Mass/Vol] 7.2 g/dL 6.1-7.9 [facility] RBC Auto (Bld) [#/Vol]Ordere d By: Modesta Chand on 08-27-2022 RBC (Bld) [#/Vol] 5.49 10*6/uL 4.10-5.10 [facility] Serum or plasma alanine florez otransferase measurement without P-5'-P (enzymatic activiOrdered By: Modesta Chand on 08-27-2022 ALT No additional P-5'-P [Catalytic activity/Vol] 20 U/L 10-60 [facility] Serum or plasma albumin/glob ulin mass ratioOrdered By: Modesta Chand on 08-27-2022 Albumin/Globulin [Mass ratio] 1.9 {ratio} [facility] Serum or plasma alkaline justin sphatase measurement (enzymatic activity/volume)Ordered By: Modesta Chand on 08-27-2022 ALP [Catalytic activity/Vol] 63 U/L 32-92 [facility] Serum or plasma amylase tammy urement (enzymatic activity/volume)Ordered By: Modesta Chand on 08-27-2022 Amylase [Catalytic activity/Vol] 25 U/L 28-100 [facility] Serum or plasma anion gap de terminationOrdered By: Modesta Chand on 08-27-2022 Anion gap [Moles/Vol] 22.5 mmol/L 6.0-15.0 [facility] Serum or plasma aspartate am inotransferase measurement (enzymatic activity/volume)Ordered By: Modesta Chand on 08-27-2022 AST [Catalytic activity/Vol] 18 U/L 10-42 [facility] Serum or plasma calcium tammy urement (mass/volume)Ordered By: Modesta Chand on 08-27-2022 Calcium [Mass/Vol] 10.1 mg/dL 8.2-10.2 [facility] Serum or plasma chloride judy surement (moles/volume)Ordered By: Modesta Chand on 08-27-2022 Chloride [Moles/Vol] 89 mmol/L 95-114 [facility] Serum or plasma creatinine m easurement with calculation of estimated glomerular filtrOrdered By: Modesta Chand on 08-27-2022 Creatinine and Glomerular filtration rate.predicted panel (S/P/Bld) 0.90 mg/dL 0.44-1.03 [facility] Serum or plasma glucose tammy urement (mass/volume)Ordered By: Modesta Chand on 08-27-2022 Glucose [Mass/Vol] 76 mg/dL 70-100 [facility] Comment on above: ADA recommended refe rence rangeRandom Glucose Reference Range is dependent on time and content of last meal. Glucose of more than 200 mg/dL in a nonstressed, ambulatory subject supports the diagnosis of Diabetes Mellitus. Serum or plasma potassium me asurement (moles/volume)Ordered By: Modesta Chand on 08-27-2022 Potassium [Moles/Vol] 3.7 mmol/L 3.5-5.1 [facility] Serum or plasma sodium measu rement (moles/volume)Ordered By: Modesta Chand on 08-27-2022 Sodium [Moles/Vol] 131 mmol/L 136-146 [facility] Serum or plasma total biliru bin measurement (mass/volume)Ordered By: Modesta Chand on 08-27-2022 Bilirubin [Mass/Vol] 1.6 mg/dL 0.3-1.2 [facility] Comment on above: Samples from patient s who have taken Naproxen have shown spurious elevation in Total Bilirubin levels. A metabolite of Naproxen, O-desmethylnaproxen, has been shown to interfere with the Solomon method for measuring Total Bilirubin. Serum or plasma total carbon dioxide measurement (moles/volume)Ordered By: Modesta Chand on 08-27-2022 CO2 [Moles/Vol] 23.2 mmol/L 22.0-30.0 [facility] Serum or plasma urea nitroge n measurement (mass/volume)Ordered By: Modesta Chand on 08-27-2022 Urea nitrogen [Mass/Vol] 15 mg/dL 08-20 [facility] Basophils Auto (Bld) [#/Vol] Ordered By: Gregorio Carey on 08-22-2022 Basophils (Bld) [#/Vol] 0.0 10*3/uL 0.0-0.1 [facility] Basophils/100 WBC Auto (Bld) Ordered By: Gregorio Carey on 08-22-2022 Basophils/100 WBC (Bld) 0.3 % . [facility] Blood hemoglobin measurement (mass/volume)Ordered By: Gregorio Carey on 08-22-2022 Hemoglobin (Bld) [Mass/Vol] 13.1 g/dL 12.0-16.0 [facility] Blood leukocytes automated c ount (number/volume)Ordered By: Gregorio Carey on 08-22-2022 WBC (Bld) [#/Vol] 9.7 10*3/uL 4.5-13.5 [facility] Creatinine and Glomerular fi ltration rate.predicted panel (S/P/Bld)Ordered By: Gregorio Carey on 08-22-2022 Creatinine [Mass/Vol] 0.75 mg/dL 0.44-1.03 [facility] Eosinophils Auto (Bld) [#/Vo l]Ordered By: Gregorio Carey on 08-22-2022 Eosinophils (Bld) [#/Vol] 0.1 10*3/uL 0.0-0.7 [facility] Eosinophils/100 WBC Auto (Bl d)Ordered By: Gregorio Carey on 08-22-2022 Eosinophils/100 WBC (Bld) 1.0 % . [facility] Erythrocyte distribution wid th Auto (RBC) [Ratio]Ordered By: Gregorio Carey on 08-22-2022 Erythrocyte distribution width (RBC) [Ratio] 14.1 % 11.9-15.3 [facility] Estimated glomerular filtrat ion rate (GFR) non- AmericanOrdered By: Gregorio Carey on 08-22-2022 GFR/1.73 sq M.predicted among non-blacks MDRD (S/P/Bld) [Vol rate/Area] > 60 mL/Min [facility] Hematocrit Auto (Bld) [Volum e fraction]Ordered By: Gregorio Carey on 08-22-2022 Hematocrit (Bld) [Volume fraction] 39.6 % 36.0-46.0 [facility] Laboratory - Hematology and Cell countsOrdered By: Gregorio Carey on 08-22-2022 Nucleated RBC/100 WBC (Bld) [Ratio] 0.0 % 0-0.5 [facility] Lymphocytes Auto (Bld) [#/Vo l]Ordered By: Gregorio Carey on 08-22-2022 Lymphocytes (Bld) [#/Vol] 2.0 10*3/uL 1.20-4.8 [facility] Lymphocytes/100 WBC Auto (Bl d)Ordered By: Gregorio Carey on 08-22-2022 Lymphocytes/100 WBC (Bld) 20.5 % . [facility] MCH Auto (RBC) [Entitic mass ]Ordered By: Gregorio Carey on 08-22-2022 MCH (RBC) [Entitic mass] 28.0 pg 25.0-35.0 [facility] MCHC Auto (RBC) [Mass/Vol]Or dered By: Gregorio Carey on 08-22-2022 MCHC (RBC) [Mass/Vol] 33.2 g/dL 31.0-37.0 [facility] MCV Auto (RBC) [Entitic vol] Ordered By: Gregorio Carey on 08-22-2022 MCV (RBC) [Entitic vol] 84.5 fL 78-102 [facility] Monocytes Auto (Bld) [#/Vol] Ordered By: Gregorio Carey on 08-22-2022 Monocytes (Bld) [#/Vol] 0.8 10*3/uL 0.1-1.00 [facility] Monocytes/100 WBC Auto (Bld) Ordered By: Gregorio Carey on 08-22-2022 Monocytes/100 WBC (Bld) 8.0 % . [facility] Neutrophils Auto (Bld) [#/Vo l]Ordered By: Gregorio Carey on 08-22-2022 Neutrophils (Bld) [#/Vol] 6.8 10*3/uL 1.2-7.7 [facility] Neutrophils/100 WBC Auto (Bl d)Ordered By: Gregorio Carey on 08-22-2022 Neutrophils/100 WBC (Bld) 70.2 % . [facility] No Panel InformationOrdered By: Gregorio Carey on 08-22-2022 Estimated GFR () > 60 mL/Min [facility] Comment on above: GFR estimated refere nce range: According to KDOQI guidelines, <60 ml/min/1.73m2 is sufficient to diagnose a patient with chronic kidney disease. Pharmacy Creatinine Clearance (Chem 117.26 [facility] 9.7 10*3/uL 4.5-13.5 [facility] 0.0 % 0-0.5 [facility] > 60 mL/Min [facility] 117.26 [facility] Platelet mean volume Auto (B ld) [Entitic vol]Ordered By: Gregorio Carey on 08-22-2022 Platelet mean volume (Bld) [Entitic vol] 8.6 fL 6.3-10.7 [facility] Platelets Auto (Bld) [#/Vol] Ordered By: Gregorio Carey on 08-22-2022 Platelets (Bld) [#/Vol] 246 10*3/uL 150-450 [facility] RBC Auto (Bld) [#/Vol]Ordere d By: Gregorio Carey on 08-22-2022 RBC (Bld) [#/Vol] 4.69 10*6/uL 4.10-5.10 [facility] Serum nuclear antibody titer Ordered By: Gregorio Carey on 08-22-2022 Nuclear Ab (S) [Titer] Negative . [facility] Comment on above: Negative <1:80 Borde rline 1:80 Positive >1:80ICAP nomenclature: AC-0For more information about Hep-2 cell patterns useANApatterns.org, the official website for theInternational Consensus on Antinuclear Antibody (EDMOND)Patterns (ICAP).Performed at: [address] [id number] Director: James Nelson PhD, Phone: [phone] Serum or plasma anion gap de terminationOrdered By: Gregorio Carey on 08-22-2022 Anion gap [Moles/Vol] 17.0 mmol/L 6.0-15.0 [facility] Serum or plasma beta choriog onadotropin measurement (units/volume)Ordered By: Gregorio Carey on 08-22-2022 HCG.beta subunit Qn m[IU]/mL [facility] Comment on above: Approximate Approxim [...] 8.2-10.2 [facility] Serum or plasma chloride judy surement (moles/volume)Ordered By: Gregorio Carey on 08-22-2022 Chloride [Moles/Vol] 99 mmol/L 95-114 [facility] Serum or plasma creatinine m easurement with calculation of estimated glomerular filtrOrdered By: Gregorio Carey on 08-22-2022 Creatinine and Glomerular filtration rate.predicted panel (S/P/Bld) 0.75 mg/dL 0.44-1.03 [facility] Serum or plasma glucose tammy urement (mass/volume)Ordered By: Gregorio Carey on 08-22-2022 Glucose [Mass/Vol] 90 mg/dL 70-100 [facility] Comment on above: ADA recommended refe rence [...] on 08-22-2022 Potassium [Moles/Vol] 3.8 mmol/L 3.5-5.1 [facility] Serum or plasma sodium measu rement (moles/volume)Ordered By: Gregorio Carey on 08-22-2022 Sodium [Moles/Vol] 134 mmol/L 136-146 [facility] Serum or plasma total carbon dioxide measurement (moles/volume)Ordered By: Gregorio Carey on 08-22-2022 CO2 [Moles/Vol] 21.8 mmol/L 22.0-30.0 [facility] Serum or plasma urea nitroge n measurement (mass/volume)Ordered By: Gregorio Carey on 08-22-2022 Urea nitrogen [Mass/Vol] 7 mg/dL 08-20 [facility] Urine culture routineOrdered By: Gregorio Carey on 08-22-2022 Bacteria identified Cx Nom (U) 2 Days [facility] Urine culture routineOrdered By: Gilson Castro on 08-22-2022 Bacteria identified Cx Nom (U) 2 Days [facility] Urine culture routineOrdered By: Colten Fry on 08-21-2022 Bacteria identified Cx Nom (U) 2 Days [facility] Amphetamine Screen Ql (U)Ord ered By: Gilson Castro on 08-20-2022 Amphetamines Ql (U) Negative Negative [facility] Automated erythrocytes count in urine sediment (number/area)Ordered By: Gilson Castro on 08-20-2022 RBC Auto (Urine sed) [#/Area] None seen [HPF] 0-4 [facility] Automated leukocytes count i n urine sediment (number/area)Ordered By: Gilson Castro on 08-20-2022 WBC Auto (Urine sed) [#/Area] 1-2 [HPF] 0-4 [facility] Barbiturates [Presence] in U rineOrdered By: Gilson Castro on 08-20-2022 Barbiturates Ql (U) Positive Negative [facility] Basophils Auto (Bld) [#/Vol] Ordered By: Gilson Castro on 08-20-2022 Basophils (Bld) [#/Vol] 0.0 10*3/uL 0.0-0.1 [facility] Basophils/100 WBC Auto (Bld) Ordered By: Gilson Castro on 08-20-2022 Basophils/100 WBC (Bld) 0.4 % . [facility] Benzodiazepines [Presence] i n UrineOrdered By: Gilson Castro on 08-20-2022 Benzodiazepines Ql (U) Negative Negative [facility] Bilirubin Test strip Ql (U)O rdered By: Gilson Castro on 08-20-2022 Bilirubin Ql (U) Negative Negative [facility] Blood anisocytosis detection Ordered By: Gilson Castro on 08-20-2022 Anisocytosis Ql (Bld) Slight Fir [facility] Blood hemoglobin measurement (mass/volume)Ordered By: Gilson Castro on 08-20-2022 Hemoglobin (Bld) [Mass/Vol] 12.1 g/dL 12.0-16.0 [facility] Blood leukocytes automated c ount (number/volume)Ordered By: Gilson Castro on 08-20-2022 WBC (Bld) [#/Vol] 10.9 10*3/uL 4.5-13.5 [facility] COVID-19 Positive/NegativeOr dered By: Ravi Arguello on 08-20-2022 SARS-CoV-2 (COVID-19) N gene JANAK+probe Ql (Resp) Negative Negative [facility] Comment on above: Testing for SARS-CoV -2 by RT-PCR This test was developed and its performance characteristics determined by [employer]) and validated at the [facility]. This test has not been FDA [...] and its performance characteristics determined by [employer] and validated at the [facility]. This test has not been FDA [...] (COVID-19) Ag IA.rapid Ql (Resp) Negative Negative [facility] Comment on above: This is a duplicate [employer] SARS Antigen (JOSE A) result to be used for statistical tracking purpose only. Cannabinoids [Presence] in U rine by Screen methodOrdered By: Gilson Castro on 08-20-2022 Cannabinoids Screen Ql (U) Positive Negative [facility] Comment on above: These are unconfirme [...] Castro on 08-20-2022 Color (U) Yellow Yellow [facility] Creatinine and Glomerular fi ltration rate.predicted panel (S/P/Bld)Ordered By: Gilson Castro on 08-20-2022 Creatinine [Mass/Vol] 0.65 mg/dL 0.44-1.03 [facility] Eosinophils Auto (Bld) [#/Vo l]Ordered By: Gilson Castro on 08-20-2022 Eosinophils (Bld) [#/Vol] 0.0 10*3/uL 0.0-0.7 [facility] Eosinophils/100 WBC Auto (Bl d)Ordered By: Gilson Castro on 08-20-2022 Eosinophils/100 WBC (Bld) 0.3 % . [facility] Erythrocyte distribution wid th Auto (RBC) [Ratio]Ordered By: Gilson Castro on 08-20-2022 Erythrocyte distribution width (RBC) [Ratio] 13.9 % 11.9-15.3 [facility] Estimated glomerular filtrat ion rate (GFR) non- AmericanOrdered By: Gilson Castro on 08-20-2022 GFR/1.73 sq M.predicted among non-blacks MDRD (S/P/Bld) [Vol rate/Area] > 60 mL/Min [facility] Hematocrit Auto (Bld) [Volum e fraction]Ordered By: Gilson Castro on 08-20-2022 Hematocrit (Bld) [Volume fraction] 36.8 % 36.0-46.0 [facility] Ketones Auto test strip (U) [Mass/Vol]Ordered By: Gilson Castro on 08-20-2022 Ketones (U) [Mass/Vol] 2+ Negative [facility] - Chemistry and C hemistry - challengeOrdered By: Gilson Castro on 08-20-2022 Magnesium [Mass/Vol] 1.9 mg/dL 1.6-2.6 [facility] Laboratory - Drug toxicology Ordered By: Gilson Castro on 08-20-2022 Opiates Ql (U) Negative Negative [facility] Laboratory - Hematology and Cell countsOrdered By: Gilson Castro on 08-20-2022 Nucleated RBC/100 WBC (Bld) [Ratio] 0.0 % 0-0.5 [facility] Laboratory - UrinalysisOrder ed By: Gilson Castro on 08-20-2022 Hyaline casts LM Ql (Urine sed) None seen [LPF] 0-8 [facility] Lymphocytes Auto (Bld) [#/Vo l]Ordered By: Gilson Castro on 08-20-2022 Lymphocytes (Bld) [#/Vol] 1.3 10*3/uL 1.20-4.8 [facility] Lymphocytes/100 WBC Auto (Bl d)Ordered By: Gilson Castro on 08-20-2022 Lymphocytes/100 WBC (Bld) 11.5 % . [facility] MCH Auto (RBC) [Entitic mass ]Ordered By: Gilson Castro on 08-20-2022 MCH (RBC) [Entitic mass] 28.1 pg 25.0-35.0 [facility] MCHC Auto (RBC) [Mass/Vol]Or dered By: Gilson Castro on 08-20-2022 MCHC (RBC) [Mass/Vol] 32.9 g/dL 31.0-37.0 [facility] MCV Auto (RBC) [Entitic vol] Ordered By: Gilson Castro on 08-20-2022 MCV (RBC) [Entitic vol] 85.5 fL 78-102 [facility] Monocytes Auto (Bld) [#/Vol] Ordered By: Gilson Castro on 08-20-2022 Monocytes (Bld) [#/Vol] 0.4 10*3/uL 0.1-1.00 [facility] Monocytes/100 WBC Auto (Bld) Ordered By: Gilson Castro on 08-20-2022 Monocytes/100 WBC (Bld) 3.7 % . [facility] Neutrophils Auto (Bld) [#/Vo l]Ordered By: Gilson Castro on 08-20-2022 Neutrophils (Bld) [#/Vol] 9.2 10*3/uL 1.2-7.7 [facility] Neutrophils/100 WBC Auto (Bl d)Ordered By: Gilson Castro on 08-20-2022 Neutrophils/100 WBC (Bld) 84.1 % . [facility] Nitrite Test strip Ql (U)Ord ered By: Gilson Castro on 08-20-2022 Nitrite Ql (U) Negative Negative [facility] No Panel InformationOrdered By: Gilson Castro on 08-20-2022 None seen [LPF] 0-8 [facility] Negative Negative [facility] Estimated GFR () > 60 mL/Min [facility] Comment on above: GFR estimated refere nce range: According to KDOQI guidelines, <60 ml/min/1.73m2 is sufficient to diagnose a patient with chronic kidney disease. Pharmacy Creatinine Clearance (Chem 136.96 [facility] Platelet Estimate Normal Normal [facility] Platelet Morphology Comment Normal Normal [facility] Normal Normal [facility] 1.9 mg/dL 1.6-2.6 [facility] No Panel InformationOrdered By: Ravi Arguello on 08-20-2022 SARS Antigen (LFIA) [facility] Phencyclidine Screen Ql (U)O rdered By: Gilson Castro on 08-20-2022 Phencyclidine Ql (U) Negative Negative [facility] Platelet mean volume Auto (B ld) [Entitic vol]Ordered By: Gilson Castro on 08-20-2022 Platelet mean volume (Bld) [Entitic vol] 8.6 fL 6.3-10.7 [facility] Platelets Auto (Bld) [#/Vol] Ordered By: Gilson Castro on 08-20-2022 Platelets (Bld) [#/Vol] 145 10*3/uL 150-450 [facility] Comment on above: Delta: 314 on Protein Auto test strip (U) [Mass/Vol]Ordered By: Gilson Castro on 08-20-2022 Protein (U) [Mass/Vol] Negative Negative [facility] RBC Auto (Bld) [#/Vol]Ordere d By: Gilson Castro on 08-20-2022 RBC (Bld) [#/Vol] 4.31 10*6/uL 4.10-5.10 [facility] RBC morphologyOrdered By: Pierce Castro on 08-20-2022 RBC morphology finding Nom (Bld) N/A [facility] Serum or plasma anion gap de terminationOrdered By: Gislon Castro on 08-20-2022 Anion gap [Moles/Vol] 15.2 mmol/L 6.0-15.0 [facility] Serum or plasma calcium tammy urement (mass/volume)Ordered By: Gilson Castro on 08-20-2022 Calcium [Mass/Vol] 8.6 mg/dL 8.2-10.2 [facility] Serum or plasma chloride judy surement (moles/volume)Ordered By: Gilson Castro on 08-20-2022 Chloride [Moles/Vol] 101 mmol/L 95-114 [facility] Serum or plasma glucose tammy urement (mass/volume)Ordered By: Gilson Castro on 08-20-2022 Glucose [Mass/Vol] 96 mg/dL 70-100 [facility] Comment on above: ADA recommended refe rence range Random Glucose Reference Range is dependent on time and content of last meal. Glucose of more than 200 mg/dL in a nonstressed, ambulatory subject supports the diagnosis of Diabetes Mellitus. Serum or plasma potassium me asurement (moles/volume)Ordered By: Gilson Castro on 08-20-2022 Potassium [Moles/Vol] 3.1 mmol/L 3.5-5.1 [facility] Serum or plasma sodium measu rement (moles/volume)Ordered By: Gilson Castro on 08-20-2022 Sodium [Moles/Vol] 135 mmol/L 136-146 [facility] Serum or plasma total carbon dioxide measurement (moles/volume)Ordered By: Gilson Castro on 08-20-2022 CO2 [Moles/Vol] 21.9 mmol/L 22.0-30.0 [facility] Serum or plasma urea nitroge n measurement (mass/volume)Ordered By: Gilson Castro on 08-20-2022 Urea nitrogen [Mass/Vol] 11 mg/dL 08-20 [facility] Specific gravity Auto test s trip (U) [Rel density]Ordered By: Gilson Castro on 08-20-2022 Specific gravity (U) [Rel density] 1.008 1.001-1.03 0 [facility] Squamous epithelial cells de tection in urine sediment by light microscopyOrdered By: Gilson Castro on 08-20-2022 Epithelial cells.squamous LM Ql (Urine sed) 1-2 [HPF] 0-2 [facility] Urine bacteria detection by automated methodOrdered By: Gislon Castro on 08-20-2022 Bacteria Auto Ql (U) None seen None Seen [facility] Urine clarity by refractomet ry automatedOrdered By: Gilson Castro on 08-20-2022 Clarity Refractometry automated (U) Clear Clear [facility] Urine cocaine detectionOrder ed By: Gilson Castro on 08-20-2022 Cocaine Ql (U) Negative Negative [facility] Urine glucose measurement by automated test strip (mass/volume)Ordered By: Gilson Castro on 08-20-2022 Glucose Auto test strip (U) [Mass/Vol] Normal mg/dL Normal [facility] Urine hemoglobin detection b y automated test stripOrdered By: Gilson Castro on 08-20-2022 Hemoglobin Auto test strip Ql (U) Negative Negative [facility] Urine leukocyte esterase det ection by automated test stripOrdered By: Gilson Castro on 08-20-2022 Leukocyte esterase Auto test strip Ql (U) 1+ Negative [facility] Urobilinogen Auto test strip (U) [Mass/Vol]Ordered By: Gilson Castro on 08-20-2022 Urobilinogen (U) [Mass/Vol] Normal mg/dL Normal [facility] pH Auto test strip (U)Ordere d By: Gilson Castro on 08-20-2022 pH (U) 7.0 [pH] 5.0-9.0 [facility] Automated erythrocytes count in urine sediment (number/area)Ordered By: Gilson Castro on 08-19-2022 RBC Auto (Urine sed) [#/Area] 3-4 [HPF] 0-4 [facility] Automated erythrocytes count in urine sediment (number/area)Ordered By: Colten Fry on 08-19-2022 RBC Auto (Urine sed) [#/Area] None seen [HPF] 0-4 [facility] Automated leukocytes count i n urine sediment (number/area)Ordered By: Gilson Castro on 08-19-2022 WBC Auto (Urine sed) [#/Area] 20-49 [HPF] 0-4 [facility] Automated leukocytes count i n urine sediment (number/area)Ordered By: Colten Fry on 08-19-2022 WBC Auto (Urine sed) [#/Area] 5-9 [HPF] 0-4 [facility] Automated urine hyaline cast s count (number/volume)Ordered By: Gilson Castro on 08-19-2022 Hyaline casts Auto (U) [#/Vol] None seen [LPF] 0-1 [facility] Basophils Auto (Bld) [#/Vol] Ordered By: Gilson Castro on 08-19-2022 Basophils (Bld) [#/Vol] 0.0 10*3/uL 0.0-0.1 [facility] Basophils Auto (Bld) [#/Vol] Ordered By: Colten Fry on 08-19-2022 Basophils (Bld) [#/Vol] 0.0 10*3/uL 0.0-0.1 [facility] Basophils/100 WBC Auto (Bld) Ordered By: Gilson Castro on 08-19-2022 Basophils/100 WBC (Bld) 0.2 % . [facility] Basophils/100 WBC Auto (Bld) Ordered By: Colten Fry on 08-19-2022 Basophils/100 WBC (Bld) 0.4 % . [facility] Bilirubin Test strip Ql (U)O rdered By: Gilson Castro on 08-19-2022 Bilirubin Ql (U) Negative Negative [facility] Bilirubin Test strip Ql (U)O rdered By: Colten Fry on 08-19-2022 Bilirubin Ql (U) Negative Negative [facility] Blood hemoglobin measurement (mass/volume)Ordered By: Gilson Castro on 08-19-2022 Hemoglobin (Bld) [Mass/Vol] 13.2 g/dL 12.0-16.0 [facility] Blood hemoglobin measurement (mass/volume)Ordered By: Colten Fry on 08-19-2022 Hemoglobin (Bld) [Mass/Vol] 12.8 g/dL 12.0-16.0 [facility] Blood leukocytes automated c ount (number/volume)Ordered By: Gilson Castro on 08-19-2022 WBC (Bld) [#/Vol] 15.5 10*3/uL 4.5-13.5 [facility] Blood leukocytes automated c ount (number/volume)Ordered By: Colten Fry on 08-19-2022 WBC (Bld) [#/Vol] 13.5 10*3/uL 4.5-13.5 [facility] Body fluid albumin measureme nt (mass/volume)Ordered By: Gilson Castro on 08-19-2022 Albumin (Body fld) [Mass/Vol] 4.0 g/dL 3.2-5.5 [facility] Body fluid albumin measureme nt (mass/volume)Ordered By: Colten Fry on 08-19-2022 Albumin (Body fld) [Mass/Vol] 4.5 g/dL 3.2-5.5 [facility] COVID-19 SOFIAOrdered By: Pierce Castro on 08-19-2022 SARS-CoV+SARS-CoV-2 (COVID-19) Ag IA.rapid Ql (Resp) Negative Negative [facility] Comment on above: This is a duplicate [facility]ia SARS Antigen (JOSE A) result to be used for statistical tracking purpose only. Casts typing in urine sedime nt by light microscopyOrdered By: Gilson Castro on 08-19-2022 Casts LM Nom (Urine sed) None seen [LPF] None Seen [facility] Casts typing in urine sedime nt by light microscopyOrdered By: Colten Fry on 08-19-2022 Casts LM Nom (Urine sed) N/A [facility] Color Auto (U)Ordered By: Pierce Castro on 08-19-2022 Color (U) Yellow Yellow [facility] Color Auto (U)Ordered By: Vida Fry on 08-19-2022 Color (U) Yellow Yellow [facility] Creatinine and Glomerular fi ltration rate.predicted panel (S/P/Bld)Ordered By: Gilson Castro on 08-19-2022 Creatinine [Mass/Vol] 0.73 mg/dL 0.44-1.03 [facility] Creatinine and Glomerular fi ltration rate.predicted panel (S/P/Bld)Ordered By: Colten Fry on 08-19-2022 Creatinine [Mass/Vol] 0.82 mg/dL 0.44-1.03 [facility] Eosinophils Auto (Bld) [#/Vo l]Ordered By: Gilson Castro on 08-19-2022 Eosinophils (Bld) [#/Vol] 0.0 10*3/uL 0.0-0.7 [facility] Eosinophils Auto (Bld) [#/Vo l]Ordered By: Colten Fry on 08-19-2022 Eosinophils (Bld) [#/Vol] 0.0 10*3/uL 0.0-0.7 [facility] Eosinophils/100 WBC Auto (Bl d)Ordered By: Gilson Castro on 08-19-2022 Eosinophils/100 WBC (Bld) 0.2 % . [facility] Eosinophils/100 WBC Auto (Bl d)Ordered By: Colten Fry on 08-19-2022 Eosinophils/100 WBC (Bld) 0.0 % . [facility] Erythrocyte distribution wid th Auto (RBC) [Ratio]Ordered By: Gilson Castro on 08-19-2022 Erythrocyte distribution width (RBC) [Ratio] 14.4 % 11.9-15.3 [facility] Erythrocyte distribution wid th Auto (RBC) [Ratio]Ordered By: Colten Fry on 08-19-2022 Erythrocyte distribution width (RBC) [Ratio] 14.3 % 11.9-15.3 [facility] Estimated glomerular filtrat ion rate (GFR) non- AmericanOrdered By: Gilson Castro on 08-19-2022 GFR/1.73 sq M.predicted among non-blacks MDRD (S/P/Bld) [Vol rate/Area] > 60 mL/Min [facility] Estimated glomerular filtrat ion rate (GFR) non- AmericanOrdered By: Colten Fry on 08-19-2022 GFR/1.73 sq M.predicted among non-blacks MDRD (S/P/Bld) [Vol rate/Area] > 60 mL/Min [facility] Globulin Calc (S) [Mass/Vol] Ordered By: Gilson Castro on 08-19-2022 Globulin (S) [Mass/Vol] 2.7 g/dL [facility] Globulin Calc (S) [Mass/Vol] Ordered By: Colten Fyr on 08-19-2022 Globulin (S) [Mass/Vol] 3.0 g/dL [facility] HCG ( test) IA.rapi d Ql (U)Ordered By: Gilson Castro on 08-19-2022 HCG ( test) Ql (U) Negative [facility] HCG ( test) IA.rapi d Ql (U)Ordered By: Colten Fry on 08-19-2022 HCG ( test) Ql (U) Negative [facility] Hematocrit Auto (Bld) [Volum e fraction]Ordered By: Gilson Castro on 08-19-2022 Hematocrit (Bld) [Volume fraction] 40.6 % 36.0-46.0 [facility] Hematocrit Auto (Bld) [Volum e fraction]Ordered By: Colten Fry on 08-19-2022 Hematocrit (Bld) [Volume fraction] 39.5 % 36.0-46.0 [facility] Ketones Auto test strip (U) [Mass/Vol]Ordered By: Gilson Castro on 08-19-2022 Ketones (U) [Mass/Vol] 4+ Negative [facility] Ketones Auto test strip (U) [Mass/Vol]Ordered By: Colten Fry on 08-19-2022 Ketones (U) [Mass/Vol] 3+ Negative [facility] Laboratory - Chemistry and C hemistry - challengeOrdered By: Gilson Castro on 08-19-2022 Lipase [Catalytic activity/Vol] 24.0 U/L 51 [facility] Magnesium [Mass/Vol] 2.0 mg/dL 1.6-2.6 [facility] - Hematology and Cell countsOrdered By: Gilson Castro on 08-19-2022 Nucleated RBC/100 WBC (Bld) [Ratio] 0.1 % 0-0.5 [facility] Laboratory - Hematology and Cell countsOrdered By: Colten Fry on 08-19-2022 Nucleated RBC/100 WBC (Bld) [Ratio] 0.0 % 0-0.5 [facility] Laboratory - UrinalysisOrder ed By: Colten Fry on 08-19-2022 Hyaline casts LM Ql (Urine sed) None seen [LPF] 0-8 [facility] Lymphocytes Auto (Bld) [#/Vo l]Ordered By: Gilson Castro on 08-19-2022 Lymphocytes (Bld) [#/Vol] 2.3 10*3/uL 1.20-4.8 [facility] Lymphocytes Auto (Bld) [#/Vo l]Ordered By: Colten Fry on 08-19-2022 Lymphocytes (Bld) [#/Vol] 1.0 10*3/uL 1.20-4.8 [facility] Lymphocytes/100 WBC Auto (Bl d)Ordered By: Gilson Castro on 08-19-2022 Lymphocytes/100 WBC (Bld) 14.6 % . [facility] Lymphocytes/100 WBC Auto (Bl d)Ordered By: Colten Fry on 08-19-2022 Lymphocytes/100 WBC (Bld) 7.3 % . [facility] MCH Auto (RBC) [Entitic mass ]Ordered By: Gilson Castro on 08-19-2022 MCH (RBC) [Entitic mass] 27.9 pg 25.0-35.0 [facility] MCH Auto (RBC) [Entitic mass ]Ordered By: Colten Fry on 08-19-2022 MCH (RBC) [Entitic mass] 27.7 pg 25.0-35.0 [facility] MCHC Auto (RBC) [Mass/Vol]Or dered By: Gilson Castro on 08-19-2022 MCHC (RBC) [Mass/Vol] 32.6 g/dL 31.0-37.0 [facility] MCHC Auto (RBC) [Mass/Vol]Or dered By: Colten Fry on 08-19-2022 MCHC (RBC) [Mass/Vol] 32.3 g/dL 31.0-37.0 [facility] MCV Auto (RBC) [Entitic vol] Ordered By: Gilson Castro on 08-19-2022 MCV (RBC) [Entitic vol] 85.6 fL 78-102 [facility] MCV Auto (RBC) [Entitic vol] Ordered By: Colten Fry on 08-19-2022 MCV (RBC) [Entitic vol] 85.7 fL 78-102 [facility] Monocytes Auto (Bld) [#/Vol] Ordered By: Gilson Castro on 08-19-2022 Monocytes (Bld) [#/Vol] 1.1 10*3/uL 0.1-1.00 [facility] Monocytes Auto (Bld) [#/Vol] Ordered By: Colten Fry on 08-19-2022 Monocytes (Bld) [#/Vol] 0.3 10*3/uL 0.1-1.00 [facility] Monocytes/100 WBC Auto (Bld) Ordered By: Gilson Castro on 08-19-2022 Monocytes/100 WBC (Bld) 7.3 % . [facility] Monocytes/100 WBC Auto (Bld) Ordered By: Colten Fry on 08-19-2022 Monocytes/100 WBC (Bld) 2.1 % . [facility] Neutrophils Auto (Bld) [#/Vo l]Ordered By: Gilson Castro on 08-19-2022 Neutrophils (Bld) [#/Vol] 12.1 10*3/uL 1.2-7.7 [facility] Neutrophils Auto (Bld) [#/Vo l]Ordered By: Colten Fry on 08-19-2022 Neutrophils (Bld) [#/Vol] 12.2 10*3/uL 1.2-7.7 [facility] Neutrophils/100 WBC Auto (Bl d)Ordered By: Gilson Castro on 08-19-2022 Neutrophils/100 WBC (Bld) 77.7 % . [facility] Neutrophils/100 WBC Auto (Bl d)Ordered By: Colten Fry on 08-19-2022 Neutrophils/100 WBC (Bld) 90.2 % . [facility] Nitrite Test strip Ql (U)Ord ered By: Gilson Castro on 08-19-2022 Nitrite Ql (U) Negative Negative [facility] Nitrite Test strip Ql (U)Ord ered By: Colten Fry on 08-19-2022 Nitrite Ql (U) Negative Negative [facility] No Panel InformationOrdered By: Gilson Castro on 08-19-2022 Estimated GFR () > 60 mL/Min [facility] Comment on above: GFR estimated refere nce range: According to KDOQI guidelines, <60 ml/min/1.73m2 is sufficient to diagnose a patient with chronic kidney disease. Pharmacy Creatinine Clearance (Chem 121.95 [facility] > 60 mL/Min [facility] 2.0 mg/dL 1.6-2.6 [facility] 24.0 U/L [facility] 121.95 [facility] 15.5 10*3/uL 4.5-13.5 [facility] 0.1 % 0-0.5 [facility] SARS Antigen (LFIA) [facility] No Panel InformationOrdered By: Colten Fry on 08-19-2022 None seen [LPF] 0-8 [facility] Estimated GFR () > 60 mL/Min [facility] Comment on above: GFR estimated refere nce range: According to KDOQI guidelines, <60 ml/min/1.73m2 is sufficient to diagnose a patient with chronic kidney disease. Pharmacy Creatinine Clearance (Chem 106.97 [facility] 13.5 10*3/uL 4.5-13.5 [facility] 0.0 % 0-0.5 [facility] > 60 mL/Min [facility] 106.97 [facility] Platelet mean volume Auto (B ld) [Entitic vol]Ordered By: Gilson Castro on 08-19-2022 Platelet mean volume (Bld) [Entitic vol] 8.8 fL 6.3-10.7 [facility] Platelet mean volume Auto (B ld) [Entitic vol]Ordered By: Colten Fry on 08-19-2022 Platelet mean volume (Bld) [Entitic vol] 8.7 fL 6.3-10.7 [facility] Platelets Auto (Bld) [#/Vol] Ordered By: Gilson Castro on 08-19-2022 Platelets (Bld) [#/Vol] 314 10*3/uL 150-450 [facility] Platelets Auto (Bld) [#/Vol] Ordered By: Cotlen Fry on 08-19-2022 Platelets (Bld) [#/Vol] 258 10*3/uL 150-450 [facility] Protein Auto test strip (U) [Mass/Vol]Ordered By: Gilson Castro on 08-19-2022 Protein (U) [Mass/Vol] 30 mg/dL Negative Fi [facility] Protein Auto test strip (U) [Mass/Vol]Ordered By: Colten Fry on 08-19-2022 Protein (U) [Mass/Vol] Trace mg/dL Negative [facility] Protein [Mass/volume] in Ser um or PlasmaOrdered By: Gilson Castro on 08-19-2022 Protein [Mass/Vol] 6.7 g/dL 6.1-7.9 [facility] Protein [Mass/volume] in Ser um or PlasmaOrdered By: Colten Fry on 08-19-2022 Protein [Mass/Vol] 7.5 g/dL 6.1-7.9 [facility] RBC Auto (Bld) [#/Vol]Ordere d By: Gilson Castro on 08-19-2022 RBC (Bld) [#/Vol] 4.74 10*6/uL 4.10-5.10 [facility] RBC Auto (Bld) [#/Vol]Ordere d By: Colten Fry on 08-19-2022 RBC (Bld) [#/Vol] 4.60 10*6/uL 4.10-5.10 [facility] Serum or plasma alanine florez otransferase measurement without P-5'-P (enzymatic activiOrdered By: Gilson Castro on 08-19-2022 ALT No additional P-5'-P [Catalytic activity/Vol] 17 U/L 10-60 [facility] Serum or plasma alanine florez otransferase measurement without P-5'-P (enzymatic activiOrdered By: Colten Fry on 08-19-2022 ALT No additional P-5'-P [Catalytic activity/Vol] 16 U/L 10-60 [facility] Serum or plasma albumin/glob ulin mass ratioOrdered By: Gilson Castro on 08-19-2022 Albumin/Globulin [Mass ratio] 1.5 {ratio} [facility] Serum or plasma albumin/glob ulin mass ratioOrdered By: Colten Fry on 08-19-2022 Albumin/Globulin [Mass ratio] 1.5 {ratio} [facility] Serum or plasma alkaline justin sphatase measurement (enzymatic activity/volume)Ordered By: Gilson Castro on 08-19-2022 ALP [Catalytic activity/Vol] 51 U/L [facility] Serum or plasma alkaline justin sphatase measurement (enzymatic activity/volume)Ordered By: Colten Fry on 08-19-2022 ALP [Catalytic activity/Vol] 59 U/L [facility] Serum or plasma anion gap de terminationOrdered By: Gilson Castro on 08-19-2022 Anion gap [Moles/Vol] 13.8 mmol/L 6.0-15.0 [facility] Serum or plasma anion gap de terminationOrdered By: Colten Fry on 08-19-2022 Anion gap [Moles/Vol] 19.5 mmol/L 6.0-15.0 [facility] Serum or plasma aspartate am inotransferase measurement (enzymatic activity/volume)Ordered By: Gilson Castro on 08-19-2022 AST [Catalytic activity/Vol] 17 U/L [facility] Serum or plasma aspartate am inotransferase measurement (enzymatic activity/volume)Ordered By: Colten Fry on 08-19-2022 AST [Catalytic activity/Vol] 20 U/L [facility] Serum or plasma calcium tammy urement (mass/volume)Ordered By: Gilson Castro on 08-19-2022 Calcium [Mass/Vol] 9.1 mg/dL 8.2-10.2 [facility] Serum or plasma calcium tammy urement (mass/volume)Ordered By: Colten Fry on 08-19-2022 Calcium [Mass/Vol] 9.8 mg/dL 8.2-10.2 [facility] Serum or plasma chloride judy surement (moles/volume)Ordered By: Gilson Castro on 08-19-2022 Chloride [Moles/Vol] 104 mmol/L 95-114 [facility] Serum or plasma chloride judy surement (moles/volume)Ordered By: Colten Fry on 08-19-2022 Chloride [Moles/Vol] 107 mmol/L 95-114 [facility] Serum or plasma creatinine m easurement with calculation of estimated glomerular filtrOrdered By: Gilson Castro on 08-19-2022 Creatinine and Glomerular filtration rate.predicted panel (S/P/Bld) 0.73 mg/dL 0.44-1.03 [facility] Serum or plasma creatinine m easurement with calculation of estimated glomerular filtrOrdered By: Colten Fry on 08-19-2022 Creatinine and Glomerular filtration rate.predicted panel (S/P/Bld) 0.82 mg/dL 0.44-1.03 [facility] Serum or plasma glucose tammy urement (mass/volume)Ordered By: Gilson Castro on 08-19-2022 Glucose [Mass/Vol] 108 mg/dL 70-100 [facility] Comment on above: ADA recommended refe rence [...] 70-100 [facility] Comment on above: ADA recommended refe rence [...] on 08-19-2022 Potassium [Moles/Vol] 3.1 mmol/L 3.5-5.1 [facility] Serum or plasma potassium me asurement (moles/volume)Ordered By: Colten Fry on 08-19-2022 Potassium [Moles/Vol] 3.9 mmol/L 3.5-5.1 [facility] Serum or plasma sodium measu rement (moles/volume)Ordered By: Gilson Castro on 08-19-2022 Sodium [Moles/Vol] 138 mmol/L 136-146 [facility] Serum or plasma sodium measu rement (moles/volume)Ordered By: Colten Fry on 08-19-2022 Sodium [Moles/Vol] 142 mmol/L 136-146 [facility] Serum or plasma total biliru bin measurement (mass/volume)Ordered By: Gilson Castro on 08-19-2022 Bilirubin [Mass/Vol] 0.5 mg/dL 0.3-1.2 [facility] Serum or plasma total biliru bin measurement (mass/volume)Ordered By: Colten Fry on 08-19-2022 Bilirubin [Mass/Vol] 0.6 mg/dL 0.3-1.2 [facility] Serum or plasma total carbon dioxide measurement (moles/volume)Ordered By: Gilson Castro on 08-19-2022 CO2 [Moles/Vol] 23.3 mmol/L 22.0-30.0 [facility] Serum or plasma total carbon dioxide measurement (moles/volume)Ordered By: Colten Fry on 08-19-2022 CO2 [Moles/Vol] 19.4 mmol/L 22.0-30.0 [facility] Serum or plasma urea nitroge n measurement (mass/volume)Ordered By: Gilson Castro on 08-19-2022 Urea nitrogen [Mass/Vol] 15 mg/dL 08-20 [facility] Serum or plasma urea nitroge n measurement (mass/volume)Ordered By: Colten Fry on 08-19-2022 Urea nitrogen [Mass/Vol] 14 mg/dL 08-20 [facility] Specific gravity Auto test s trip (U) [Rel density]Ordered By: Gilson Castro on 08-19-2022 Specific gravity (U) [Rel density] 1.026 1.001-1.03 0 [facility] Specific gravity Auto test s trip (U) [Rel density]Ordered By: Colten Fry on 08-19-2022 Specific gravity (U) [Rel density] 1.023 1.001-1.03 0 [facility] Squamous epithelial cells de tection in urine sediment by light microscopyOrdered By: Gilson Castro on 08-19-2022 Epithelial cells.squamous LM Ql (Urine sed) 20-30 [HPF] 0-2 [facility] Squamous epithelial cells de tection in urine sediment by light microscopyOrdered By: Colten Fry on 08-19-2022 Epithelial cells.squamous LM Ql (Urine sed) 20-30 [HPF] 0-2 [facility] Urine bacteria detection by automated methodOrdered By: Gilson Castro on 08-19-2022 Bacteria Auto Ql (U) 2+ None Seen [facility] Urine bacteria detection by automated methodOrdered By: Colten Fry on 08-19-2022 Bacteria Auto Ql (U) 1+ None Seen [facility] Urine clarity by refractomet ry automatedOrdered By: Gilson Castro on 08-19-2022 Clarity Refractometry automated (U) Turbid Clear [facility] Urine clarity by refractomet ry automatedOrdered By: Colten Fry on 08-19-2022 Clarity Refractometry automated (U) Cloudy Clear [facility] Urine glucose measurement by automated test strip (mass/volume)Ordered By: Gilson Castro on 08-19-2022 Glucose Auto test strip (U) [Mass/Vol] Normal mg/dL Normal [facility] Urine glucose measurement by automated test strip (mass/volume)Ordered By: Colten Fry on 08-19-2022 Glucose Auto test strip (U) [Mass/Vol] Normal mg/dL Normal [facility] Urine hemoglobin detection b y automated test stripOrdered By: Gilson Castro on 08-19-2022 Hemoglobin Auto test strip Ql (U) Negative Negative [facility] Urine hemoglobin detection b y automated test stripOrdered By: Colten Fry on 08-19-2022 Hemoglobin Auto test strip Ql (U) Negative Negative [facility] Urine leukocyte esterase det ection by automated test stripOrdered By: Gilson Castro on 08-19-2022 Leukocyte esterase Auto test strip Ql (U) 2+ Negative [facility] Urine leukocyte esterase det ection by automated test stripOrdered By: Colten Fry on 08-19-2022 Leukocyte esterase Auto test strip Ql (U) 1+ Negative [facility] Urobilinogen Auto test strip (U) [Mass/Vol]Ordered By: Gilson Castro on 08-19-2022 Urobilinogen (U) [Mass/Vol] Normal mg/dL Normal [facility] Urobilinogen Auto test strip (U) [Mass/Vol]Ordered By: Colten Fry on 08-19-2022 Urobilinogen (U) [Mass/Vol] Normal mg/dL Normal [facility] pH Auto test strip (U)Ordere d By: Gilson Castro on 08-19-2022 pH (U) 8.0 [pH] 5.0-9.0 [facility] pH Auto test strip (U)Ordere d By: Colten Fry on 08-19-2022 pH (U) 6.0 [pH] 5.0-9.0 [facility] COVID-19 SOFIAOrdered By: Lul Rivera on 08-18-2022 SARS-CoV+SARS-CoV-2 (COVID-19) Ag IA.rapid Ql (Resp) Negative Negative [facility] Comment on above: This is a duplicate [facility] SARS Antigen (JOSE A) result to be used for statistical tracking purpose only. No Panel InformationOrdered By: Joss Rivera on 08-18-2022 SARS Antigen (LFIA) [facility] Basophils Auto (Bld) [#/Vol] Ordered By: Modesta Chand on 06-25-2022 Basophils (Bld) [#/Vol] 0.1 10*3/uL 0.0-0.1 [facility] Basophils/100 WBC Auto (Bld) Ordered By: Modesta Chand on 06-25-2022 Basophils/100 WBC (Bld) 1.2 % . [facility] Blood hemoglobin measurement (mass/volume)Ordered By: Modesta Chand on 06-25-2022 Hemoglobin (Bld) [Mass/Vol] 13.8 g/dL 12.0-16.0 [facility] Blood leukocytes automated c ount (number/volume)Ordered By: Modesta Chand on 06-25-2022 WBC (Bld) [#/Vol] 7.9 10*3/uL 4.5-13.5 [facility] Body fluid albumin measureme nt (mass/volume)Ordered By: Modesta Chand on 06-25-2022 Albumin (Body fld) [Mass/Vol] 4.5 g/dL 3.2-5.[address] [facility] [address] biopsyOrdered By: Yasmine Chand on 06-25-2022 Transferrin [Mass/Vol] 328 mg/dL 180-[facility] and Glomerular fi ltration rate.predicted panel (S/P/Bld)Ordered By: Modesta Chand on 06-25-2022 Creatinine [Mass/Vol] 0.67 mg/dL 0.44-1.03 [facility] Eosinophils Auto (Bld) [#/Vo l]Ordered By: Modesta Chand on 06-25-2022 Eosinophils (Bld) [#/Vol] 0.6 10*3/uL 0.0-0.7 [facility] Eosinophils/100 WBC Auto (Bl d)Ordered By: Modesta Chand on 06-25-2022 Eosinophils/100 WBC (Bld) 7.2 % . [facility] Erythrocyte distribution wid th Auto (RBC) [Ratio]Ordered By: Modesta Chand on 06-25-2022 Erythrocyte distribution width (RBC) [Ratio] 13.6 % 11.9-15.3 [facility] Estimated glomerular filtrat ion rate (GFR) non- AmericanOrdered By: Modesta Chand on 06-25-2022 GFR/1.73 sq M.predicted among non-blacks MDRD (S/P/Bld) [Vol rate/Area] > 60 mL/Min [facility] Ferritin [Mass/volume] in Se rum or PlasmaOrdered By: Modesta Chand on 06-25-2022 Ferritin [Mass/Vol] 28.5 ng/mL 11-306.8 [facility] Globulin Calc (S) [Mass/Vol] Ordered By: Modesta Chand on 06-25-2022 Globulin (S) [Mass/Vol] 2.5 g/dL [facility] Hematocrit Auto (Bld) [Volum e fraction]Ordered By: Modesta Chand on 06-25-2022 Hematocrit (Bld) [Volume fraction] 42.3 % 36.0-46.0 [facility] Iron [Mass/volume] in Serum or PlasmaOrdered By: Modesta Chand on 06-25-2022 Iron [Mass/Vol] 52 ug/dL 40-150 [facility] Iron binding capacity [Mass/ volume] in Serum or PlasmaOrdered By: Modesta Chand on 06-25-2022 Iron binding capacity [Mass/Vol] 459 ug/dL 255-450 [facility] Iron saturation [Mass Fracti on] in Serum or PlasmaOrdered By: Modesta Chand on 06-25-2022 Iron saturation [Mass fraction] 11.0 % 20-50 [facility] Laboratory - Hematology and Cell countsOrdered By: Modesta Chand on 06-25-2022 Nucleated RBC/100 WBC (Bld) [Ratio] 0.0 % 0-0.5 [facility] Lymphocytes Auto (Bld) [#/Vo l]Ordered By: Modesta Chand on 06-25-2022 Lymphocytes (Bld) [#/Vol] 2.1 10*3/uL 1.20-4.8 [facility] Lymphocytes/100 WBC Auto (Bl d)Ordered By: Modesta Chand on 06-25-2022 Lymphocytes/100 WBC (Bld) 26.9 % . [facility] MCH Auto (RBC) [Entitic mass ]Ordered By: Modesta Chand on 06-25-2022 MCH (RBC) [Entitic mass] 28.1 pg 25.0-35.0 [facility] MCHC Auto (RBC) [Mass/Vol]Or dered By: Modesta Chand on 06-25-2022 MCHC (RBC) [Mass/Vol] 32.7 g/dL 31.0-37.0 [facility] MCV Auto (RBC) [Entitic vol] Ordered By: Modesta Chand on 06-25-2022 MCV (RBC) [Entitic vol] 85.8 fL 78-102 [facility] Monocytes Auto (Bld) [#/Vol] Ordered By: Modesta Chand on 06-25-2022 Monocytes (Bld) [#/Vol] 0.6 10*3/uL 0.1-1.00 [facility] Monocytes/100 WBC Auto (Bld) Ordered By: Modesta Chand on 06-25-2022 Monocytes/100 WBC (Bld) 7.2 % . [facility] Neutrophils Auto (Bld) [#/Vo l]Ordered By: Modesta Chand on 06-25-2022 Neutrophils (Bld) [#/Vol] 4.5 10*3/uL 1.2-7.7 [facility] Neutrophils/100 WBC Auto (Bl d)Ordered By: Modesta Chand on 06-25-2022 Neutrophils/100 WBC (Bld) 57.5 % . [facility] No Panel InformationOrdered By: Modesta Chand on 06-25-2022 25-Hydroxy Vitamin D Total 35.9 ng/mL 30-100 [facility] Comment on above: VITAMIN D STATUS 25( [place])VITAMIN D RANGE (ng/mL) Deficient <20 Insufficient 20 to <30 Sufficient 30 to 100 Reference: Danica MF,Chayo NC, Sony GUERRERO, et al. Evaluation,treatment, and prevention of vitamin D deficiency; an Endocrine Society clinical practice guideline. JCEM. 2010; 96(7):1911-30. Absolute Reticulocyte Count 0.066 10*6/uL 0.024-0.08 4 [facility] Estimated GFR () > 60 mL/Min [facility] Comment on above: GFR estimated refere nce range: According to KDOQI guidelines, <60 ml/min/1.73m2 is sufficient to diagnose a patient with chronic kidney disease. Percent Reticulocyte Count 1.3 % 0.5-1.5 [facility] Pharmacy Creatinine Clearance (Chem N/A [facility] Platelet mean volume Auto (B ld) [Entitic vol]Ordered By: Modesta Chand on 06-25-2022 Platelet mean volume (Bld) [Entitic vol] 9.0 fL 6.3-10.7 [facility] Platelets Auto (Bld) [#/Vol] Ordered By: Modesta Chand on 06-25-2022 Platelets (Bld) [#/Vol] 263 10*3/uL 150-450 [facility] Protein [Mass/volume] in Ser um or PlasmaOrdered By: Modesta Chand on 06-25-2022 Protein [Mass/Vol] 7.0 g/dL 6.1-7.9 [facility] RBC Auto (Bld) [#/Vol]Ordere d By: Modesta Chand on 06-25-2022 RBC (Bld) [#/Vol] 4.94 10*6/uL 4.10-5.10 [facility] Serum or plasma alanine florez otransferase measurement without P-5'-P (enzymatic activiOrdered By: Modesta Chand on 06-25-2022 ALT No additional P-5'-P [Catalytic activity/Vol] 18 U/L 10-60 [facility] Serum or plasma albumin/glob ulin mass ratioOrdered By: Modesta Chand on 06-25-2022 Albumin/Globulin [Mass ratio] 1.8 {ratio} [facility] Serum or plasma alkaline justin sphatase measurement (enzymatic activity/volume)Ordered By: Modesta Chand on 06-25-2022 ALP [Catalytic activity/Vol] 65 U/L 32-92 [facility] Serum or plasma aspartate am inotransferase measurement (enzymatic activity/volume)Ordered By: Modesta Chand on 06-25-2022 AST [Catalytic activity/Vol] 18 U/L 10-42 [facility] Serum or plasma calcium tammy urement (mass/volume)Ordered By: Modesta Chand on 06-25-2022 Calcium [Mass/Vol] 10.2 mg/dL 8.2-10.2 [facility] Serum or plasma chloride judy surement (moles/volume)Ordered By: Modesta Chand on 06-25-2022 Chloride [Moles/Vol] 102 mmol/L 95-114 [facility] Serum or plasma glucose tammy urement (mass/volume)Ordered By: Modesta Chand on 06-25-2022 Glucose [Mass/Vol] 87 mg/dL 70-100 [facility] Comment on above: ADA recommended refe rence range Random Glucose Reference Range is dependent on time and content of last meal. Glucose of more than 200 mg/dL in a nonstressed, ambulatory subject supports the diagnosis of Diabetes Mellitus. Serum or plasma potassium me asurement (moles/volume)Ordered By: Modesta Chand on 06-25-2022 Potassium [Moles/Vol] 4.4 mmol/L 3.5-5.1 [facility] Serum or plasma sodium measu rement (moles/volume)Ordered By: Modesta Chand on 06-25-2022 Sodium [Moles/Vol] 137 mmol/L 136-146 [facility] Serum or plasma total biliru bin measurement (mass/volume)Ordered By: Modesta Chand on 06-25-2022 Bilirubin [Mass/Vol] 0.4 mg/dL 0.3-1.2 [facility] Serum or plasma total carbon dioxide measurement (moles/volume)Ordered By: Modesta Chand on 06-25-2022 CO2 [Moles/Vol] 23.8 mmol/L 22.0-30.0 [facility] Serum or plasma urea nitroge n measurement (mass/volume)Ordered By: Modesta Chand on 06-25-2022 Urea nitrogen [Mass/Vol] 14 mg/dL 9-23 [facility] TSH DL <= 0.005 mIU/L QnOrde red By: Modesta Chand on 06-25-2022 TSH Qn 1.05 m[IU]/L 0.45-5.33 [facility] Thyroxine (T4) free [Mass/vo lume] in Serum or PlasmaOrdered By: Modesta Chand on 06-25-2022 Free T4 [Mass/Vol] 0.74 ng/dL 0.61-1.12 [facility] HCG ( test) IA.rapi d Ql (U)Ordered By: Brennen Britt on 06-09-2022 HCG ( test) Ql (U) Negative [facility] COVID-19 Positive/NegativeOr dered By: Brennen Britt on 06-07-2022 SARS-CoV-2 (COVID-19) N gene JANAK+probe Ql (Resp) Negative Negative [facility] Comment on above: Testing for SARS-CoV -2 by RT-PCR This test was developed and its performance characteristics determined by [employer] ([employer]) and validated at the [facility]. This test has not been FDA [...] 3.2-5.5 [facility] Basophils Auto (Bld) [#/Vol] Ordered By: Modesta Chand on 05-26-2022 Basophils (Bld) [#/Vol] 0.1 10*3/uL 0.0-0.1 [facility] Basophils/100 WBC Auto (Bld) Ordered By: Modesta Chand on 05-26-2022 Basophils/100 WBC (Bld) 1.1 % . [facility] Blood hemoglobin measurement (mass/volume)Ordered By: Modesta Chand on 05-26-2022 Hemoglobin (Bld) [Mass/Vol] 13.6 g/dL 12.0-16.0 [facility] Blood leukocytes automated c ount (number/volume)Ordered By: Modesta Chand on 05-26-2022 WBC (Bld) [#/Vol] 10.6 10*3/uL 4.5-13.5 [facility] C reactive protein [Mass/vol ume] in Serum or PlasmaOrdered By: Modesta Chand on 05-26-2022 CRP [Mass/Vol] 0.6 mg/dL 0.0-1.[address] [facility] [address] biopsyOrdered By: Yasmine Chand on 05-26-2022 Transferrin [Mass/Vol] 292 mg/dL 180-380 [facility] Creatinine and Glomerular fi ltration rate.predicted panel (S/P/Bld)Ordered By: Modesta Chand on 05-26-2022 Creatinine [Mass/Vol] 0.63 mg/dL 0.44-1.03 [facility] Eosinophils Auto (Bld) [#/Vo l]Ordered By: Modesta Chand on 05-26-2022 Eosinophils (Bld) [#/Vol] 0.4 10*3/uL 0.0-0.7 [facility] Eosinophils/100 WBC Auto (Bl d)Ordered By: Modesta Chand on 05-26-2022 Eosinophils/100 WBC (Bld) 3.6 % . [facility] Erythrocyte distribution wid th Auto (RBC) [Ratio]Ordered By: Modesta Chand on 05-26-2022 Erythrocyte distribution width (RBC) [Ratio] 13.7 % 11.9-15.3 [facility] Erythrocyte sedimentation ra te by Photometric methodOrdered By: Modesta Chand on 05-26-2022 ESR Photometric method (Bld) [Velocity] 5 mm/hr 0-19 [facility] Estimated glomerular filtrat ion rate (GFR) non- AmericanOrdered By: Modesta Chand on 05-26-2022 GFR/1.73 sq M.predicted among non-blacks MDRD (S/P/Bld) [Vol rate/Area] > 60 mL/Min [facility] Ferritin [Mass/volume] in Se rum or PlasmaOrdered By: Modesta Chand on 05-26-2022 Ferritin [Mass/Vol] 14.2 ng/mL 11-306.8 [facility] Folate [Mass/volume] in Seru m or PlasmaOrdered By: Modesta Chand on 05-26-2022 Folate [Mass/Vol] 13.0 ng/mL >5.9 [facility] Comment on above: Folate reference ran ge: >5.9 ng/ml The WHO technical consultation on folate and vitamin b12 deficiencies has determined that folate concentrations less than 4 ng/ml are considered deficient. Globulin Calc (S) [Mass/Vol] Ordered By: Modesta Chand on 05-26-2022 Globulin (S) [Mass/Vol] 2.3 g/dL [facility] Glucose mean value [Mass/vol ume] in Blood Estimated from glycated hemoglobinOrdered By: Modesta Chand on 05-26-2022 Average glucose Estimated from glycated hemoglobin (Bld) [Mass/Vol] 111 mg/dL [facility] Hematocrit Auto (Bld) [Volum e fraction]Ordered By: Modesta Chand on 05-26-2022 Hematocrit (Bld) [Volume fraction] 41.4 % 36.0-46.0 [facility] Hemoglobin A1c percentageOrd ered By: Modesta Chand on 05-26-2022 HbA1c (Bld) [Mass fraction] 5.5 % 4.3-5.6 [facility] Comment on above: Increased risk for d iabetes: 5.7 - 6.4 diabetes: >6.4 glycemic control for adults with diabetes: <7.0 Iron [Mass/volume] in Serum or PlasmaOrdered By: Modesta Chand on 05-26-2022 Iron [Mass/Vol] 63 ug/dL 40-150 [facility] Iron binding capacity [Mass/ volume] in Serum or PlasmaOrdered By: Modesta Chand on 05-26-2022 Iron binding capacity [Mass/Vol] 409 ug/dL 255-450 [facility] Iron saturation [Mass Fracti on] in Serum or PlasmaOrdered By: Modesta Chand on 05-26-2022 Iron saturation [Mass fraction] 15.0 % 20-50 [facility] Laboratory - Chemistry and C hemistry - challengeOrdered By: Modesta Chand on 05-26-2022 Cobalamin (Vitamin B12) [Mass/Vol] 329 pg/mL 180-914 [facility] - Hematology and Cell countsOrdered By: Modesta Chand on 05-26-2022 Nucleated RBC/100 WBC (Bld) [Ratio] 0.0 % 0-0.5 [facility] Lymphocytes Auto (Bld) [#/Vo l]Ordered By: Modesta Chand on 05-26-2022 Lymphocytes (Bld) [#/Vol] 2.3 10*3/uL 1.20-4.8 [facility] Lymphocytes/100 WBC Auto (Bl d)Ordered By: Modesta Chand on 05-26-2022 Lymphocytes/100 WBC (Bld) 21.6 % . [facility] MCH Auto (RBC) [Entitic mass ]Ordered By: Modesta Chand on 05-26-2022 MCH (RBC) [Entitic mass] 28.6 pg 25.0-35.0 [facility] MCHC Auto (RBC) [Mass/Vol]Or dered By: Modesta Chand on 05-26-2022 MCHC (RBC) [Mass/Vol] 33.0 g/dL 31.0-37.0 [facility] MCV Auto (RBC) [Entitic vol] Ordered By: Modesta Chand on 05-26-2022 MCV (RBC) [Entitic vol] 86.6 fL 78-102 [facility] Monocytes Auto (Bld) [#/Vol] Ordered By: Modesta Chand on 05-26-2022 Monocytes (Bld) [#/Vol] 0.6 10*3/uL 0.1-1.00 [facility] Monocytes/100 WBC Auto (Bld) Ordered By: Modesta Chand on 05-26-2022 Monocytes/100 WBC (Bld) 5.9 % . [facility] Neutrophils Auto (Bld) [#/Vo l]Ordered By: Modesta Chand on 05-26-2022 Neutrophils (Bld) [#/Vol] 7.2 10*3/uL 1.2-7.7 [facility] Neutrophils/100 WBC Auto (Bl d)Ordered By: Modesta Chand on 05-26-2022 Neutrophils/100 WBC (Bld) 67.8 % . [facility] No Panel InformationOrdered By: Modesta Chand on 05-26-2022 25-Hydroxy Vitamin D Total 26.9 ng/mL 30-100 [facility] Comment on above: VITAMIN D STATUS 25( [place])VITAMIN D RANGE (ng/mL) Deficient <20 Insufficient 20 to <30 Sufficient 30 to 100 Reference: Danica MF,Chayo NC, Sony GUERRERO, et al. Evaluation,treatment, and prevention of vitamin D deficiency; an Endocrine Society clinical practice guideline. JCEM. 2010; 96(7):1911-30. Estimated GFR () > 60 mL/Min [facility] Comment on above: GFR estimated refere nce range: According to KDOQI guidelines, <60 ml/min/1.73m2 is sufficient to diagnose a patient with chronic kidney disease. Pharmacy Creatinine Clearance (Chem N/A [facility] Platelet mean volume Auto (B ld) [Entitic vol]Ordered By: Modesta Chand on 05-26-2022 Platelet mean volume (Bld) [Entitic vol] 8.9 fL 6.3-10.7 [facility] Platelets Auto (Bld) [#/Vol] Ordered By: Modesta Chand on 05-26-2022 Platelets (Bld) [#/Vol] 286 10*3/uL 150-450 [facility] Protein [Mass/volume] in Ser um or PlasmaOrdered By: Modesta Chand on 05-26-2022 Protein [Mass/Vol] 6.2 g/dL 6.1-7.9 [facility] RBC Auto (Bld) [#/Vol]Ordere d By: Modesta Chand on 05-26-2022 RBC (Bld) [#/Vol] 4.78 10*6/uL 4.10-5.10 [facility] Serum nuclear antibody titer Ordered By: Modesta Chand on 05-26-2022 Nuclear Ab (S) [Titer] Negative . [facility] Comment on above: Negative <1:80 Borderline 1:80 Positive >1:80 ICAP nomenclature: AC-0 For more information about Hep-2 cell patterns use ANApatterns.org, the official website for the International Consensus on Antinuclear Antibody (EDMOND) Patterns (ICAP). Performed at: - [facility] [id number] Application Services Manager: James Nelson PhD, Phone: [phone] Serum or plasma alanine florez otransferase measurement without P-5'-P (enzymatic activiOrdered By: Modesta Chand on 05-26-2022 ALT No additional P-5'-P [Catalytic activity/Vol] 50 U/L 10-60 [facility] Serum or plasma albumin/glob ulin mass ratioOrdered By: Modesta Chand on 05-26-2022 Albumin/Globulin [Mass ratio] 1.7 {ratio} [facility] Serum or plasma alkaline justin sphatase measurement (enzymatic activity/volume)Ordered By: Modesta Chand on 05-26-2022 ALP [Catalytic activity/Vol] 58 U/L 32-92 [facility] Serum or plasma aspartate am inotransferase measurement (enzymatic activity/volume)Ordered By: Modesta Chand on 05-26-2022 AST [Catalytic activity/Vol] 25 U/L 10-42 [facility] Serum or plasma calcium tammy urement (mass/volume)Ordered By: Modesta Chand on 05-26-2022 Calcium [Mass/Vol] 9.3 mg/dL 8.2-10.2 [facility] Serum or plasma chloride judy surement (moles/volume)Ordered By: Modesta Chand on 05-26-2022 Chloride [Moles/Vol] 103 mmol/L 95-114 [facility] Serum or plasma glucose tammy urement (mass/volume)Ordered By: Modesta Chand on 05-26-2022 Glucose [Mass/Vol] 111 mg/dL 70-100 [facility] Comment on above: ADA recommended refe rence range Random Glucose Reference Range is dependent on time and content of last meal. Glucose of more than 200 mg/dL in a nonstressed, ambulatory subject supports the diagnosis of Diabetes Mellitus. Serum or plasma potassium me asurement (moles/volume)Ordered By: Modesta Chand on 05-26-2022 Potassium [Moles/Vol] 4.3 mmol/L 3.5-5.1 [facility] Serum or plasma sodium measu rement (moles/volume)Ordered By: Modesta Chand on 05-26-2022 Sodium [Moles/Vol] 137 mmol/L 136-146 [facility] Serum or plasma total biliru bin measurement (mass/volume)Ordered By: Modesta Chand on 05-26-2022 Bilirubin [Mass/Vol] 0.5 mg/dL 0.3-1.2 [facility] Serum or plasma total carbon dioxide measurement (moles/volume)Ordered By: Modesta Chand on 05-26-2022 CO2 [Moles/Vol] 24.9 mmol/L 22.0-30.0 [facility] Serum or plasma urea nitroge n measurement (mass/volume)Ordered By: Modesta Chand on 05-26-2022 Urea nitrogen [Mass/Vol] 9 mg/dL 08-20 [facility] Urine culture routineOrdered By: Gilson Castro on 05-18-2022 Bacteria identified Cx Nom (U) 2 Days [facility] Amphetamine Screen Ql (U)Ord ered By: Gilson Castro on 05-16-2022 Amphetamines Ql (U) Negative Negative [facility] Automated erythrocytes count in urine sediment (number/area)Ordered By: Gilson Castro on 05-16-2022 RBC Auto (Urine sed) [#/Area] 3-4 [HPF] 0-4 [facility] Automated leukocytes count i n urine sediment (number/area)Ordered By: Gilson Castro on 05-16-2022 WBC Auto (Urine sed) [#/Area] 5-9 [HPF] 0-4 [facility] Automated urine hyaline cast s count (number/volume)Ordered By: Gilson Castro on 05-16-2022 Hyaline casts Auto (U) [#/Vol] None seen [LPF] 0-1 [facility] Barbiturates [Presence] in U rineOrdered By: Gilson Castro on 05-16-2022 Barbiturates Ql (U) Positive Negative [facility] Basophils Auto (Bld) [#/Vol] Ordered By: Gilson Castro on 05-16-2022 Basophils (Bld) [#/Vol] 0.0 10*3/uL 0.0-0.1 [facility] Basophils/100 WBC Auto (Bld) Ordered By: Gilson Castro on 05-16-2022 Basophils/100 WBC (Bld) 0.4 % . [facility] Benzodiazepines [Presence] i n UrineOrdered By: Gilson Castro on 05-16-2022 Benzodiazepines Ql (U) Negative Negative [facility] Bilirubin Test strip Ql (U)O rdered By: Gilson Castro on 05-16-2022 Bilirubin Ql (U) Negative Negative [facility] Blood hemoglobin measurement (mass/volume)Ordered By: Gilson Castro on 05-16-2022 Hemoglobin (Bld) [Mass/Vol] 13.4 g/dL 12.0-16.0 [facility] Blood leukocytes automated c ount (number/volume)Ordered By: Gilson Castro on 05-16-2022 WBC (Bld) [#/Vol] 10.0 10*3/uL 4.5-13.5 [facility] Body fluid albumin measureme nt (mass/volume)Ordered By: Gilson Castro on 05-16-2022 Albumin (Body fld) [Mass/Vol] 4.3 g/dL 3.2-5.5 [facility] Cannabinoids [Presence] in U rine by Screen methodOrdered By: Gilson Castro on 05-16-2022 Cannabinoids Screen Ql (U) Positive Negative [facility] Comment on above: These are unconfirme [...] (Urine sed) None seen [LPF] None Seen [facility] Color Auto (U)Ordered By: Pierce Castro on 05-16-2022 Color (U) Yellow Yellow [facility] Creatinine and Glomerular fi ltration rate.predicted panel (S/P/Bld)Ordered By: Gilson Castro on 05-16-2022 Creatinine [Mass/Vol] 0.80 mg/dL 0.44-1.03 [facility] Eosinophils Auto (Bld) [#/Vo l]Ordered By: Gilson Castro on 05-16-2022 Eosinophils (Bld) [#/Vol] 0.1 10*3/uL 0.0-0.7 [facility] Eosinophils/100 WBC Auto (Bl d)Ordered By: Gilson Castro on 05-16-2022 Eosinophils/100 WBC (Bld) 0.7 % . [facility] Erythrocyte distribution wid th Auto (RBC) [Ratio]Ordered By: Gilson Castro on 05-16-2022 Erythrocyte distribution width (RBC) [Ratio] 13.4 % 11.9-15.3 [facility] Estimated glomerular filtrat ion rate (GFR) non- AmericanOrdered By: Gilson Castro on 05-16-2022 GFR/1.73 sq M.predicted among non-blacks MDRD (S/P/Bld) [Vol rate/Area] > 60 mL/Min [facility] Globulin Calc (S) [Mass/Vol] Ordered By: Gilson Castro on 05-16-2022 Globulin (S) [Mass/Vol] 2.7 g/dL [facility] HCG ( test) IA.rapi d Ql (U)Ordered By: Gilson Castro on 05-16-2022 HCG ( test) Ql (U) Negative [facility] Hematocrit Auto (Bld) [Volum e fraction]Ordered By: Gilson Castro on 05-16-2022 Hematocrit (Bld) [Volume fraction] 39.4 % 36.0-46.0 [facility] Ketones Auto test strip (U) [Mass/Vol]Ordered By: Gilson Castro on 05-16-2022 Ketones (U) [Mass/Vol] 3+ Negative [facility] Laboratory - Chemistry and C hemistry - challengeOrdered By: Gilson Castor on 05-16-2022 Lipase [Catalytic activity/Vol] 26.0 U/L 22-51 [facility] - Drug toxicology Ordered By: Gilson Castro on 05-16-2022 Opiates Ql (U) Negative Negative [facility] Laboratory - Hematology and Cell countsOrdered By: Gilson Castro on 05-16-2022 Nucleated RBC/100 WBC (Bld) [Ratio] 0.0 % 0-0.5 [facility] Lymphocytes Auto (Bld) [#/Vo l]Ordered By: Gilson Castro on 05-16-2022 Lymphocytes (Bld) [#/Vol] 1.9 10*3/uL 1.20-4.8 [facility] Lymphocytes/100 WBC Auto (Bl d)Ordered By: Gilson Castro on 05-16-2022 Lymphocytes/100 WBC (Bld) 18.7 % . [facility] MCH Auto (RBC) [Entitic mass ]Ordered By: Gilson Castro on 05-16-2022 MCH (RBC) [Entitic mass] 28.6 pg 25.0-35.0 [facility] MCHC Auto (RBC) [Mass/Vol]Or dered By: Gilson Castro on 05-16-2022 MCHC (RBC) [Mass/Vol] 34.1 g/dL 31.0-37.0 [facility] MCV Auto (RBC) [Entitic vol] Ordered By: Gilson Castro on 05-16-2022 MCV (RBC) [Entitic vol] 84.0 fL 78-102 [facility] Monocytes Auto (Bld) [#/Vol] Ordered By: Gilson Castro on 05-16-2022 Monocytes (Bld) [#/Vol] 0.9 10*3/uL 0.1-1.00 [facility] Monocytes/100 WBC Auto (Bld) Ordered By: Gilson Castro on 05-16-2022 Monocytes/100 WBC (Bld) 9.2 % . [facility] Neutrophils Auto (Bld) [#/Vo l]Ordered By: Gilson Castro on 05-16-2022 Neutrophils (Bld) [#/Vol] 7.1 10*3/uL 1.2-7.7 [facility] Neutrophils/100 WBC Auto (Bl d)Ordered By: Gilson Castro on 05-16-2022 Neutrophils/100 WBC (Bld) 71.0 % . [facility] Nitrite Test strip Ql (U)Ord ered By: Gilson Castro on 05-16-2022 Nitrite Ql (U) Negative Negative [facility] No Panel InformationOrdered By: Gilson Castro on 05-16-2022 Estimated GFR () > 60 mL/Min [facility] Comment on above: GFR estimated refere nce range: According to KDOQI guidelines, <60 ml/min/1.73m2 is sufficient to diagnose a patient with chronic kidney disease. Pharmacy Creatinine Clearance (Chem 109.65 [facility] Phencyclidine Screen Ql (U)O rdered By: Gilson Castro on 05-16-2022 Phencyclidine Ql (U) Negative Negative [facility] Platelet mean volume Auto (B ld) [Entitic vol]Ordered By: Gilson Castro on 05-16-2022 Platelet mean volume (Bld) [Entitic vol] 8.5 fL 6.3-10.7 [facility] Platelets Auto (Bld) [#/Vol] Ordered By: Gilson Castro on 05-16-2022 Platelets (Bld) [#/Vol] 241 10*3/uL 150-450 [facility] Protein Auto test strip (U) [Mass/Vol]Ordered By: Gilson Castro on 05-16-2022 Protein (U) [Mass/Vol] Trace mg/dL Negative [facility] Protein [Mass/volume] in Ser um or PlasmaOrdered By: Gilson Castro on 05-16-2022 Protein [Mass/Vol] 7.0 g/dL 6.1-7.9 [facility] RBC Auto (Bld) [#/Vol]Ordere d By: Gilson Castro on 05-16-2022 RBC (Bld) [#/Vol] 4.69 10*6/uL 4.10-5.10 [facility] Serum or plasma alanine florez otransferase measurement without P-5'-P (enzymatic activiOrdered By: Gilson Castro on 05-16-2022 ALT No additional P-5'-P [Catalytic activity/Vol] 23 U/L 10-60 [facility] Serum or plasma albumin/glob ulin mass ratioOrdered By: Gilson Castro on 05-16-2022 Albumin/Globulin [Mass ratio] 1.6 {ratio} [facility] Serum or plasma alkaline justin sphatase measurement (enzymatic activity/volume)Ordered By: Gilson Castro on 05-16-2022 ALP [Catalytic activity/Vol] 58 U/L 32-92 [facility] Serum or plasma aspartate am inotransferase measurement (enzymatic activity/volume)Ordered By: Gilson Castro on 05-16-2022 AST [Catalytic activity/Vol] 22 U/L 10-42 [facility] Serum or plasma calcium tammy urement (mass/volume)Ordered By: Gilson Castro on 05-16-2022 Calcium [Mass/Vol] 9.2 mg/dL 8.2-10.2 [facility] Serum or plasma chloride judy surement (moles/volume)Ordered By: Gilson Castro on 05-16-2022 Chloride [Moles/Vol] 97 mmol/L 95-114 [facility] Serum or plasma glucose tammy urement (mass/volume)Ordered By: Gilson Castro on 05-16-2022 Glucose [Mass/Vol] 90 mg/dL 70-100 [facility] Comment on above: ADA recommended refe rence range Random Glucose Reference Range is dependent on time and content of last meal. Glucose of more than 200 mg/dL in a nonstressed, ambulatory subject supports the diagnosis of Diabetes Mellitus. Serum or plasma potassium me asurement (moles/volume)Ordered By: Gilson Castro on 05-16-2022 Potassium [Moles/Vol] 3.2 mmol/L 3.5-5.1 [facility] Serum or plasma sodium measu rement (moles/volume)Ordered By: Gilson Castro on 05-16-2022 Sodium [Moles/Vol] 135 mmol/L 136-146 [facility] Serum or plasma total biliru bin measurement (mass/volume)Ordered By: Gilson Castro on 05-16-2022 Bilirubin [Mass/Vol] 1.0 mg/dL 0.3-1.2 [facility] Serum or plasma total carbon dioxide measurement (moles/volume)Ordered By: Gilson Castro on 05-16-2022 CO2 [Moles/Vol] 24.6 mmol/L 22.0-30.0 [facility] Serum or plasma urea nitroge n measurement (mass/volume)Ordered By: Gilson Castro on 05-16-2022 Urea nitrogen [Mass/Vol] 23 mg/dL 9- [facility] Specific gravity Auto test s trip (U) [Rel density]Ordered By: Gilson Castro on 05-16-2022 Specific gravity (U) [Rel density] 1.023 1.001-1.03 0 [facility] Squamous epithelial cells de tection in urine sediment by light microscopyOrdered By: Gilson Castro on 05-16-2022 Epithelial cells.squamous LM Ql (Urine sed) 20-30 [HPF] 0-2 [facility] Urine bacteria detection by automated methodOrdered By: Gilson Castro on 05-16-2022 Bacteria Auto Ql (U) 1+ None Seen [facility] Urine clarity by refractomet ry automatedOrdered By: Gilson Castro on 05-16-2022 Clarity Refractometry automated (U) Turbid Clear [facility] Urine cocaine detectionOrder ed By: Gilson Castro on 05-16-2022 Cocaine Ql (U) Negative Negative [facility] Urine glucose measurement by automated test strip (mass/volume)Ordered By: Gilson Castro on 05-16-2022 Glucose Auto test strip (U) [Mass/Vol] Normal mg/dL Normal [facility] Urine hemoglobin detection b y automated test stripOrdered By: Gilson Castro on 05-16-2022 Hemoglobin Auto test strip Ql (U) Negative Negative [facility] Urine leukocyte esterase det ection by automated test stripOrdered By: Gilson Castro on 05-16-2022 Leukocyte esterase Auto test strip Ql (U) 2+ Negative [facility] Urobilinogen Auto test strip (U) [Mass/Vol]Ordered By: Gilson Castro on 05-16-2022 Urobilinogen (U) [Mass/Vol] Normal mg/dL Normal [facility] pH Auto test strip (U)Ordere d By: Gilson Castro on 05-16-2022 pH (U) 8.0 [pH] 5.0-9.0 [facility] Albumin [Mass/volume] in Ser um or PlasmaOrdered By: Art Bianchi on 05-15-2022 Albumin [Mass/Vol] 4.7 g/dL 3.2-5.5 [facility] Basophils Auto (Bld) [#/Vol] Ordered By: Art Bianchi on 05-15-2022 Basophils (Bld) [#/Vol] 0.0 10*3/uL 0.0-0.1 [facility] Basophils/100 WBC Auto (Bld) Ordered By: Art Bianchi on 05-15-2022 Basophils/100 WBC (Bld) 0.2 % . [facility] Blood hemoglobin measurement (mass/volume)Ordered By: Art Bianchi on 05-15-2022 Hemoglobin (Bld) [Mass/Vol] 13.6 g/dL 12.0-16.0 [facility] Blood leukocytes automated c ount (number/volume)Ordered By: Art Bianchi on 05-15-2022 WBC (Bld) [#/Vol] 14.0 10*3/uL 4.5-13.5 [facility] Creatinine and Glomerular fi ltration rate.predicted panel (S/P/Bld)Ordered By: Art Bianchi on 05-15-2022 Creatinine [Mass/Vol] 0.76 mg/dL 0.44-1.03 [facility] Eosinophils Auto (Bld) [#/Vo l]Ordered By: Art Bianchi on 05-15-2022 Eosinophils (Bld) [#/Vol] 0.0 10*3/uL 0.0-0.7 [facility] Eosinophils/100 WBC Auto (Bl d)Ordered By: Art Bianchi on 05-15-2022 Eosinophils/100 WBC (Bld) 0.4 % . [facility] Erythrocyte distribution wid th Auto (RBC) [Ratio]Ordered By: Art Bianchi on 05-15-2022 Erythrocyte distribution width (RBC) [Ratio] 13.7 % 11.9-15.3 [facility] Estimated glomerular filtrat ion rate (GFR) non- AmericanOrdered By: Art Bianchi on 05-15-2022 GFR/1.73 sq M.predicted among non-blacks MDRD (S/P/Bld) [Vol rate/Area] > 60 mL/Min [facility] Globulin Calc (S) [Mass/Vol] Ordered By: Art Bianchi on 05-15-2022 Globulin (S) [Mass/Vol] 3.2 g/dL [facility] Hematocrit Auto (Bld) [Volum e fraction]Ordered By: Art Bianchi on 05-15-2022 Hematocrit (Bld) [Volume fraction] 41.0 % 36.0-46.0 [facility] Laboratory - Chemistry and C hemistry - challengeOrdered By: Art Bianchi on 05-15-2022 Lipase [Catalytic activity/Vol] 24.0 U/L 22-51 [facility] - Hematology and Cell countsOrdered By: Art Bianchi on 05-15-2022 Nucleated RBC/100 WBC (Bld) [Ratio] 0.0 % 0-0.5 [facility] Lymphocytes Auto (Bld) [#/Vo l]Ordered By: Art Bianchi on 05-15-2022 Lymphocytes (Bld) [#/Vol] 2.6 10*3/uL 1.20-4.8 [facility] Lymphocytes/100 WBC Auto (Bl d)Ordered By: Art Bianchi on 05-15-2022 Lymphocytes/100 WBC (Bld) 18.4 % . [facility] MCH Auto (RBC) [Entitic mass ]Ordered By: Art Bianchi on 05-15-2022 MCH (RBC) [Entitic mass] 28.0 pg 25.0-35.0 [facility] MCHC Auto (RBC) [Mass/Vol]Or dered By: Art Bianchi on 05-15-2022 MCHC (RBC) [Mass/Vol] 33.3 g/dL 31.0-37.0 [facility] MCV Auto (RBC) [Entitic vol] Ordered By: Art Bianchi on 05-15-2022 MCV (RBC) [Entitic vol] 84.1 fL 78-102 [facility] Monocytes Auto (Bld) [#/Vol] Ordered By: Art Bianchi on 05-15-2022 Monocytes (Bld) [#/Vol] 1.2 10*3/uL 0.1-1.00 [facility] Monocytes/100 WBC Auto (Bld) Ordered By: Art Bianchi on 05-15-2022 Monocytes/100 WBC (Bld) 8.3 % . [facility] Neutrophils Auto (Bld) [#/Vo l]Ordered By: Art Bianchi on 05-15-2022 Neutrophils (Bld) [#/Vol] 10.2 10*3/uL 1.2-7.7 [facility] Neutrophils/100 WBC Auto (Bl d)Ordered By: Art Bianchi on 05-15-2022 Neutrophils/100 WBC (Bld) 72.7 % . [facility] No Panel InformationOrdered By: Art Bianchi on 05-15-2022 Estimated GFR () > 60 mL/Min [facility] Comment on above: GFR estimated refere nce range: According to KDOQI guidelines, <60 ml/min/1.73m2 is sufficient to diagnose a patient with chronic kidney disease. Pharmacy Creatinine Clearance (Chem 115.34 [facility] Platelet mean volume Auto (B ld) [Entitic vol]Ordered By: Art Bianchi on 05-15-2022 Platelet mean volume (Bld) [Entitic vol] 8.8 fL 6.3-10.7 [facility] Platelets Auto (Bld) [#/Vol] Ordered By: Art Bianchi on 05-15-2022 Platelets (Bld) [#/Vol] 315 10*3/uL 150-450 [facility] Protein [Mass/volume] in Ser um or PlasmaOrdered By: Art Bianchi on 05-15-2022 Protein [Mass/Vol] 7.9 g/dL 6.1-7.9 [facility] RBC Auto (Bld) [#/Vol]Ordere d By: Art Bianchi on 05-15-2022 RBC (Bld) [#/Vol] 4.88 10*6/uL 4.10-5.10 [facility] Serum or plasma alanine florez otransferase measurement without P-5'-P (enzymatic activiOrdered By: Art Bianchi on 05-15-2022 ALT No additional P-5'-P [Catalytic activity/Vol] 25 U/L 10-60 [facility] Serum or plasma albumin/glob ulin mass ratioOrdered By: Art Bianchi on 05-15-2022 Albumin/Globulin [Mass ratio] 1.5 {ratio} [facility] Serum or plasma alkaline justin sphatase measurement (enzymatic activity/volume)Ordered By: Art Bianchi on 05-15-2022 ALP [Catalytic activity/Vol] 66 U/L 32-92 [facility] Serum or plasma aspartate am inotransferase measurement (enzymatic activity/volume)Ordered By: Art Bianchi on 05-15-2022 AST [Catalytic activity/Vol] 33 U/L 10-42 [facility] Serum or plasma calcium tammy urement (mass/volume)Ordered By: Art Bianchi on 05-15-2022 Calcium [Mass/Vol] 10.1 mg/dL 8.2-10.2 [facility] Serum or plasma chloride judy surement (moles/volume)Ordered By: Art Bianchi on 05-15-2022 Chloride [Moles/Vol] 94 mmol/L 95-114 [facility] Serum or plasma glucose tammy urement (mass/volume)Ordered By: Art Bianchi on 05-15-2022 Glucose [Mass/Vol] 102 mg/dL 70-100 [facility] Comment on above: ADA recommended refe rence range Random Glucose Reference Range is dependent on time and content of last meal. Glucose of more than 200 mg/dL in a nonstressed, ambulatory subject supports the diagnosis of Diabetes Mellitus. Serum or plasma potassium me asurement (moles/volume)Ordered By: Art Bianchi on 05-15-2022 Potassium [Moles/Vol] 3.1 mmol/L 3.5-5.1 [facility] Serum or plasma sodium measu rement (moles/volume)Ordered By: Art Bianchi on 05-15-2022 Sodium [Moles/Vol] 135 mmol/L 136-146 [facility] Serum or plasma total biliru bin measurement (mass/volume)Ordered By: Art Bianchi on 05-15-2022 Bilirubin [Mass/Vol] 1.2 mg/dL 0.3-1.2 [facility] Serum or plasma total carbon dioxide measurement (moles/volume)Ordered By: Art Bianchi on 05-15-2022 CO2 [Moles/Vol] 22.2 mmol/L 22.0-30.0 [facility] Serum or plasma urea nitroge n measurement (mass/volume)Ordered By: Art Bianchi on 05-15-2022 Urea nitrogen [Mass/Vol] 23 mg/dL 9-23 [facility] Albumin [Mass/volume] in Ser um or PlasmaOrdered By: Art Bianchi on 05-13-2022 Albumin [Mass/Vol] 4.3 g/dL 3.2-5.5 [facility] Automated erythrocytes count in urine sediment (number/area)Ordered By: Art Bianchi on 05-13-2022 RBC Auto (Urine sed) [#/Area] 1-2 [HPF] 0-4 [facility] Automated leukocytes count i n urine sediment (number/area)Ordered By: Art Bianchi on 05-13-2022 WBC Auto (Urine sed) [#/Area] 1-2 [HPF] 0-4 [facility] Basophils Auto (Bld) [#/Vol] Ordered By: Art Bianchi on 05-13-2022 Basophils (Bld) [#/Vol] 0.1 10*3/uL 0.0-0.1 [facility] Basophils/100 WBC Auto (Bld) Ordered By: Art Bianchi on 05-13-2022 Basophils/100 WBC (Bld) 1.0 % . [facility] Bilirubin Test strip Ql (U)O rdered By: Art Bianchi on 05-13-2022 Bilirubin Ql (U) Negative Negative [facility] Blood hemoglobin measurement (mass/volume)Ordered By: Art Bianchi on 05-13-2022 Hemoglobin (Bld) [Mass/Vol] 13.7 g/dL 12.0-16.0 [facility] Blood leukocytes automated c ount (number/volume)Ordered By: Art Bianchi on 05-13-2022 WBC (Bld) [#/Vol] 10.4 10*3/uL 4.5-13.5 [facility] Color Auto (U)Ordered By: Adrian Bianchi on 05-13-2022 Color (U) Yellow Yellow [facility] Creatinine and Glomerular fi ltration rate.predicted panel (S/P/Bld)Ordered By: Art Bianchi on 05-13-2022 Creatinine [Mass/Vol] 0.76 mg/dL 0.44-1.03 [facility] Eosinophils Auto (Bld) [#/Vo l]Ordered By: Art Bianchi on 05-13-2022 Eosinophils (Bld) [#/Vol] 0.5 10*3/uL 0.0-0.7 [facility] Eosinophils/100 WBC Auto (Bl d)Ordered By: Art Bianchi on 05-13-2022 Eosinophils/100 WBC (Bld) 4.6 % . [facility] Erythrocyte distribution wid th Auto (RBC) [Ratio]Ordered By: Art Bianchi on 05-13-2022 Erythrocyte distribution width (RBC) [Ratio] 13.6 % 11.9-15.3 [facility] Estimated glomerular filtrat ion rate (GFR) non- AmericanOrdered By: Art Bianchi on 05-13-2022 GFR/1.73 sq M.predicted among non-blacks MDRD (S/P/Bld) [Vol rate/Area] > 60 mL/Min [facility] Globulin Calc (S) [Mass/Vol] Ordered By: Art Bianchi on 05-13-2022 Globulin (S) [Mass/Vol] 2.7 g/dL [facility] HCG ( test) IA.rapi d Ql (U)Ordered By: Art Bianchi on 05-13-2022 HCG ( test) Ql (U) Negative [facility] Hematocrit Auto (Bld) [Volum e fraction]Ordered By: Art Bianchi on 05-13-2022 Hematocrit (Bld) [Volume fraction] 40.5 % 36.0-46.0 [facility] Ketones Auto test strip (U) [Mass/Vol]Ordered By: Art Bianchi on 05-13-2022 Ketones (U) [Mass/Vol] Trace Negative [facility] - Hematology and Cell countsOrdered By: Art Bianchi on 05-13-2022 Nucleated RBC/100 WBC (Bld) [Ratio] 0.0 % 0-0.5 [facility] - UrinalysisOrder ed By: Art Bianchi on 05-13-2022 Hyaline casts LM Ql (Urine sed) 0-8 [LPF] 0-8 [facility] Lymphocytes Auto (Bld) [#/Vo l]Ordered By: Art Bianchi on 05-13-2022 Lymphocytes (Bld) [#/Vol] 1.4 10*3/uL 1.20-4.8 [facility] Lymphocytes/100 WBC Auto (Bl d)Ordered By: Art Bianchi on 05-13-2022 Lymphocytes/100 WBC (Bld) 13.1 % . [facility] MCH Auto (RBC) [Entitic mass ]Ordered By: Art Bianchi on 05-13-2022 MCH (RBC) [Entitic mass] 28.6 pg 25.0-35.0 [facility] MCHC Auto (RBC) [Mass/Vol]Or dered By: Art Biacnhi on 05-13-2022 MCHC (RBC) [Mass/Vol] 33.7 g/dL 31.0-37.0 [facility] MCV Auto (RBC) [Entitic vol] Ordered By: Art Bianchi on 05-13-2022 MCV (RBC) [Entitic vol] 84.7 fL 78-102 [facility] Monocytes Auto (Bld) [#/Vol] Ordered By: Art Bianchi on 05-13-2022 Monocytes (Bld) [#/Vol] 0.4 10*3/uL 0.1-1.00 [facility] Monocytes/100 WBC Auto (Bld) Ordered By: Art Bianchi on 05-13-2022 Monocytes/100 WBC (Bld) 4.2 % . [facility] Neutrophils Auto (Bld) [#/Vo l]Ordered By: Art Bianchi on 05-13-2022 Neutrophils (Bld) [#/Vol] 8.0 10*3/uL 1.2-7.7 [facility] Neutrophils/100 WBC Auto (Bl d)Ordered By: Art Bianchi on 05-13-2022 Neutrophils/100 WBC (Bld) 77.1 % . [facility] Nitrite Test strip Ql (U)Ord ered By: Art Bianchi on 05-13-2022 Nitrite Ql (U) Negative Negative [facility] No Panel InformationOrdered By: Art Bianchi on 05-13-2022 Estimated GFR () > 60 mL/Min [facility] Comment on above: GFR estimated refere nce range: According to KDOQI guidelines, <60 ml/min/1.73m2 is sufficient to diagnose a patient with chronic kidney disease. Pharmacy Creatinine Clearance (Chem 112.80 [facility] Platelet mean volume Auto (B ld) [Entitic vol]Ordered By: Art Bianchi on 05-13-2022 Platelet mean volume (Bld) [Entitic vol] 8.6 fL 6.3-10.7 [facility] Platelets Auto (Bld) [#/Vol] Ordered By: Art Bianchi on 05-13-2022 Platelets (Bld) [#/Vol] 264 10*3/uL 150-450 [facility] Protein Auto test strip (U) [Mass/Vol]Ordered By: Art Bianchi on 05-13-2022 Protein (U) [Mass/Vol] 30 mg/dL Negative [facility] Protein [Mass/volume] in Ser um or PlasmaOrdered By: Art Bianchi on 05-13-2022 Protein [Mass/Vol] 7.0 g/dL 6.1-7.9 [facility] RBC Auto (Bld) [#/Vol]Ordere d By: Art Bianchi on 05-13-2022 RBC (Bld) [#/Vol] 4.78 10*6/uL 4.10-5.10 [facility] Serum or plasma alanine florez otransferase measurement without P-5'-P (enzymatic activiOrdered By: Art Bianchi on 05-13-2022 ALT No additional P-5'-P [Catalytic activity/Vol] 19 U/L 10-60 [facility] Serum or plasma albumin/glob ulin mass ratioOrdered By: Art Bianchi on 05-13-2022 Albumin/Globulin [Mass ratio] 1.6 {ratio} [facility] Serum or plasma alkaline justin sphatase measurement (enzymatic activity/volume)Ordered By: Art Bianchi on 05-13-2022 ALP [Catalytic activity/Vol] 69 U/L 32-92 [facility] Serum or plasma aspartate am inotransferase measurement (enzymatic activity/volume)Ordered By: Art Bianchi on 05-13-2022 AST [Catalytic activity/Vol] 19 U/L 10-42 [facility] Serum or plasma calcium tammy urement (mass/volume)Ordered By: Art Bianchi on 05-13-2022 Calcium [Mass/Vol] 9.9 mg/dL 8.2-10.2 [facility] Serum or plasma chloride judy surement (moles/volume)Ordered By: Art Bianchi on 05-13-2022 Chloride [Moles/Vol] 107 mmol/L 95-114 [facility] Serum or plasma glucose tammy urement (mass/volume)Ordered By: Art Bianchi on 05-13-2022 Glucose [Mass/Vol] 140 mg/dL 70-100 [facility] Comment on above: ADA recommended refe rence range Random Glucose Reference Range is dependent on time and content of last meal. Glucose of more than 200 mg/dL in a nonstressed, ambulatory subject supports the diagnosis of Diabetes Mellitus. Serum or plasma potassium me asurement (moles/volume)Ordered By: Art Bianchi on 05-13-2022 Potassium [Moles/Vol] 3.7 mmol/L 3.5-5.1 [facility] Serum or plasma sodium measu rement (moles/volume)Ordered By: Art Bianchi on 05-13-2022 Sodium [Moles/Vol] 138 mmol/L 136-146 [facility] Serum or plasma total biliru bin measurement (mass/volume)Ordered By: Art Bianchi on 05-13-2022 Bilirubin [Mass/Vol] 0.5 mg/dL 0.3-1.2 [facility] Serum or plasma total carbon dioxide measurement (moles/volume)Ordered By: Art Bianchi on 05-13-2022 CO2 [Moles/Vol] 19.0 mmol/L 22.0-30.0 [facility] Serum or plasma urea nitroge n measurement (mass/volume)Ordered By: Art Bianchi on 05-13-2022 Urea nitrogen [Mass/Vol] 11 mg/dL 9-23 [facility] Specific gravity Auto test s trip (U) [Rel density]Ordered By: Art Bianchi on 05-13-2022 Specific gravity (U) [Rel density] 1.018 1.001-1.03 0 [facility] Squamous epithelial cells de tection in urine sediment by light microscopyOrdered By: Art Bianchi on 05-13-2022 Epithelial cells.squamous LM Ql (Urine sed) 20-30 [HPF] 0-2 [facility] Urine bacteria detection by automated methodOrdered By: Art Bianchi on 05-13-2022 Bacteria Auto Ql (U) 2+ None Seen [facility] Urine clarity by refractomet ry automatedOrdered By: Art Bianchi on 05-13-2022 Clarity Refractometry automated (U) Cloudy Clear [facility] Urine glucose measurement by automated test strip (mass/volume)Ordered By: Art Bianchi on 05-13-2022 Glucose Auto test strip (U) [Mass/Vol] Normal mg/dL Normal [facility] Urine hemoglobin detection b y automated test stripOrdered By: Art Bianchi on 05-13-2022 Hemoglobin Auto test strip Ql (U) Negative Negative [facility] Urine leukocyte esterase det ection by automated test stripOrdered By: Art Bianchi on 05-13-2022 Leukocyte esterase Auto test strip Ql (U) Negative Negative [facility] Urobilinogen Auto test strip (U) [Mass/Vol]Ordered By: Art Bianchi on 05-13-2022 Urobilinogen (U) [Mass/Vol] Normal mg/dL Normal [facility] pH Auto test strip (U)Ordere d By: Art Bianchi on 05-13-2022 pH (U) [pH] 5.0-9.0 [facility] CNPNon 10-10-2021 CNPN Telephone (OTOLMN) PILI PARIKH ([id number]) 3 F Date Time Provider Department 10/10/21 ROLANDO WOOTEN OTOLSONYA During your visit today, we recorded the following information about you: Rolando Wooten MD 10/10/2021 12:44 PM Signed Spoke with patient. Monospot positive. Waiting on CBC with diff - wbc 10. She feels ok, just sore throat after incision for EXECUTIVE PILOT yesterday. Ordered further labs as somewhat atypical [...] [B27.80] Order(s):HEPATIC FUNCTION PNL [SQHFP] Order #: [id number] FUTURE HIV 1 2 COMBO(AG/AB),WITH REFLEX TO DIFFERENTIATION [SQHIV12] Order #: [id number] FUTURE CMV IGG/IGM TITER [[id number]] Order #: [id number] FUTURE LISSA-HENSON VCA IGM [SQEBVM] Order #: [id number] FUTURE EBV EA AB IGG [[id number]] Order #: [id number] FUTURE LISSA-HENSON VCA IGG [SQEBVG] Order #: [id number] FUTURE CMV IGG/IGM TITER [[id number]] Order #: [id number] EBV EA AB IGG [[id number]] Order #: [id number] Prescriptions as of 10/27/2021 - HYDROcodone-acetaminophen (HYCET) [...] by ROLANDO WOOTEN on 10/10/21 Normal [facility] AFB Cult and Stainon 021 AFB Cult and Stain Sp. Request/Comment: - Specimen received in sterile container. Smear Result - No acid fast bacilli seen by fluorochrome stain Culture Result - No Acid Fast Bacilli isolated after 46 days Normal [facility] Comment on above: Performed By: #### A FC #### [facility] [address] [place], [place] [address] Anaerobe Cultureon 1 Anaerobe Culture Sp. Request/Comment: - Specimen received in sterile container. Culture Result - Few Mixed anaerobic jori --> ABNORMAL ALERT No Bacteroides fragilis group isolated. No Clostridium perfringens isolated Critically abnormal [facility] Comment on above: Performed By: #### A NACUL #### [facility] [employer] [address] [place], [place] [address] Basic Metabolic Panlon 10-09 Anion gap [Moles/Vol] 14 mmol/L Normal 9-18 [facility] Comment on above: Result Comment: (NOT E) Reference ranges for this patient's age group have not been established. These reference ranges reflect verified or established ranges for the adult population. Interpret these ranges with caution using the clinical context and additional reference resources. Performed By: #### C BCDIF, BMP, MONOLX #### [facility] [employer] [address] [place], [place] [address] Calcium [Mass/Vol] 9.4 mg/dL Normal 8.4-10.2 [facility] Comment on above: Performed By: #### C BCDIF, BMP, MONOLX #### [facility] [employer] [address] [place], [place] [address] Chloride [Moles/Vol] 99 mmol/L Normal 97-105 [facility] Comment on above: Result Comment: (NOT E) Reference ranges for this patient's age group have not been established. These reference ranges reflect verified or established ranges for the adult population. Interpret these ranges with caution using the clinical context and additional reference resources. Performed By: #### C BCCHRISTEL SANDOVAL, MONOLX #### [facility] [employer] [address] [place], [place] [address] CO2 [Moles/Vol] 23 mmol/L Normal 22-30 [facility] Comment on above: Result Comment: (NOT E) Reference ranges for this patient's age group have not been established. These reference ranges reflect verified or established ranges for the adult population. Interpret these ranges with caution using the clinical context and additional reference resources. Performed By: #### C BCCHRISTEL SANDOVAL, MONOLX #### [facility] [employer] [address] [place], [place] [address] Creatinine [Mass/Vol] 0.64 mg/dL Normal 0.58-0.96 [facility] Comment on above: Result Comment: Refe rence ranges for this patient's age group have not been established. These reference ranges reflect verified or established ranges for the adult population. Interpret these ranges with caution using the clinical context and additional reference resources. Performed By: #### C CHRISTEL WHITESIDE, MONOLX #### [facility] [employer] [address] [place], [place] [address] eGFR-Ped. Factor 0.65 Normal [facility] Comment on above: Result Comment: eGFR [...] for clinical interpretation. Performed By: #### C BCSAULFCHRISTEL, MONOLX #### [facility] [employer] [address] [place], [place] [address] Glucose [Mass/Vol] 89 mg/dL Normal 74-99 [facility] Comment on above: Result Comment: Refe rence ranges for this patient's age group have not been established. These reference ranges reflect verified or established ranges for the adult population. Interpret these ranges with caution using the clinical context and additional reference resources. The [place] [employer] (ADA) provides guidance for cutoff [...] Standards of Medical Care in Diabetes 2016, [place] [employer]. Diabetes Care. 2016.39(Suppl 1). Performed By: #### C BCDIF, BMP, MONOLX #### [facility] [employer] [address] [place], [place] [address] Potassium [Moles/Vol] 4.4 mmol/L Normal 3.7-5.1 [facility] Comment on above: Result Comment: (NOT E) Reference ranges for this patient's age group have not been established. These reference ranges reflect verified or established ranges for the adult population. Interpret these ranges with caution using the clinical context and additional reference resources. Performed By: #### C BCDIF, BMP, MONOLX #### [facility] [employer] [address] [place], [place] [address] Sodium [Moles/Vol] 136 mmol/L Normal 136-144 [facility] Comment on above: Result Comment: (NOT E) Reference ranges for this patient's age group have not been established. These reference ranges reflect verified or established ranges for the adult population. Interpret these ranges with caution using the clinical context and additional reference resources. Performed By: #### C BCDIF, BMP, MONOLX #### [facility] [employer] [address] [place], [place] [address] Urea nitrogen [Mass/Vol] 8 mg/dL Normal 5-18 [facility] Comment on above: Performed By: #### C BCDIF, BMP, MONOLX #### [facility] [employer] [address] [place] [address] CBC and Differentialon 10-09 Abs Baso 0.11 k/uL High <0.11 [facility] Comment on above: Performed By: #### C BCDIF, BMP, MONOLX #### [place] [id number] [place] [phone] Abs Lym 4.27 K/uL High 1.00-4.00 [facility] Comment on above: Performed By: #### C BCDIF, BMP, MONOLX #### [place] [phone] Abs [place]ark 1.10 k/uL High <0.87 [facility] Comment on above: Performed By: #### C BCDIF, BMP, MONOLX #### [place] [id number] [place] [phone] Abs Neut 5.37 k/uL Normal 1.45-7.50 [facility] Comment on above: Performed By: #### C BCDIF, BMP, MONOLX #### [place] [id number] [place] [phone] Basophils/100 WBC (Bld) 1 % Normal [facility] Comment on above: Performed By: #### C BCDIF, BMP, MONOLX #### [place] [id number] [place] [address] Diff Comments SEE COMMENT Normal [facility] Comment on above: Result Comment: Plat elet estimate adequate Performed By: #### C BCDIF, BMP, MONOLX #### [place] [id number] [place] [address] Eosinophils (Bld) [#/Vol] 0.11 10*3/uL Normal <0.46 [facility] Comment on above: Performed By: #### C BCDIF, BMP, MONOLX #### [facility] [address]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 IN EACH NOSTRIL TWICE DAILY;Therapy: 22Dec2017 to (Evaluate:25Dec2017) Requested for: 22Dec2017; LastRx:22Dec2017 Ordered Rx By: Dali Mcintosh; Dispense: 3 Days ; #: Sufficient X 15 ML Bottle; Refill: 0;For: Abdominal pain, Asthma, mild persistent, Epistaxis, Flu-like symptoms, Hematemesis, Vomiting; KAYLA = N; Rx auto-faxed to [facility]; Last Updated By: [facility]; 12/22/2017 5:43:51 PM AeroChamber Z-Stat Plus/Large Miscellaneous; Please dispense large spacer withmouthpiece. Okay to substitute Optichamber with mouthpiece or Ashley Vortex withmouthpiece;Therapy: 23Sep2014 to (Last Rx:24Mar2015) Requested for: 24Mar2015 Ordered Rx By: Amira Roach; Dispense: 0 Days ; #:1 Miscellaneous; Refill: 1;For: Asthma; KAYLA = N; Verified Transmission to [facility]; Last Updated By: [facility]; 03/24/2015 10:46:52 AM Albuterol Sulfate (2.5 MG/3ML) 0.083% Inhalation Nebulization Solution; Inhale one vialevery 4-6 hours as needed for cough, wheezing and shortness of breath;Therapy: 23Sep2014 to (Evaluate:20Oct2015) Requested for: 24Mar2015; LastRx:24Mar2015 Ordered Rx By: Amira Roach; Dispense: 30 Days ; #:1 X 3 ML Plas Cont (60 Plas Conts); Refill: 6;For: Asthma; KAYLA = N; Verified Transmission to [facility]; Last Updated By: [facility]; 03/24/2015 10:46:51 AM PredniSONE 20 MG Oral Tablet; Take 3 tablets once daily for 5-7 days. To be used in thesetting of a severe asthma flare-up. Please call the office prior to starting;Therapy: 23Sep2014 to (Last Rx:24Mar2015) Requested for: [id number] Ordered Rx By: Amira Roach; Dispense: 0 Days ; #:21 Tablet; Refill: 1;For: Asthma; KAYLA = N; Sent To: [facility]; Last Updated By: Dali Mcintosh; 04/14/2018 10:03:48 [...] Asthma; KAYLA = N; Verified Transmission to [place] [address]; Last Updated By: [facility]; 03/24/2015 10:46:52 AM Qvar 80 MCG/ACT Inhalation Aerosol Solution; INHALE TWO PUFFS BY MOUTH TWICEA DAY WITH A SPACER;Therapy: 23Sep2014 to (Last Rx:80Fvj9409) Requested for: 27Apr2016 Ordered Rx By: Amira Roach; Dispense: 0 Days ; #:8.7 EA; Refill: 5;For: Asthma, mild persistent; KAYLA = N; Verified Transmission to [place] [address] Lansoprazole 30 MG Oral Capsule Delayed Release; TAKE 1 CAPSULE EVERYMORNING DAILY;Therapy: 86Zyr4898 to (Evaluate:73Pht2284) Requested for: 18Apr2018; LastRx:18Apr2018 Ordered Rx By: Dali Mcintosh; Dispense: 30 Days ; #:30 Capsule Delayed Release; Refill: 3;For: Gastro-esophageal reflux; KAYLA = N; Verified Transmission to [place] [address] Unspecified Medication; Vitamin B2-400 Oral Capsule1 capsule orally once a day;Therapy: (Recorded:61Cnp3732) to Recorded Dispense: 0 Days ; #: Sufficient; Refill: 0;For: Health Maintenance; KAYLA = N; Record; Last Updated By: Mehran Martinez; 08/26/2017 8:43:21 AM Gabapentin 300 MG Oral Capsule; TAKE 1 CAPSULE 3 TIMES DAILY;Therapy: 28Sep2017 to (Evaluate:51Ljc9474) Requested for: 18Feb2018; LastRx:18Feb2018 Ordered Rx By: Mere Simpson; Dispense: 30 Days ; #:90 Capsule; Refill: 5;For: Migraine; KAYLA = N; Verified Transmission to [place] [address]; Last Updated By: [facility]; 02/18/2018 9:49:39 AM Magnesium Oxide 400 MG Oral Tablet; 1 TABLET ORALLY ONCE A DAY;Therapy: (Recorded:05Ayv9883) to Recorded Dispense: 0 Days ; #: Sufficient Tablet; Refill: 0;For: Migraine; KAYLA = N; Record; Last Updated By: Mehran Martinez; 08/26/2017 8:43:21 AM Amitriptyline HCl - 25 MG Oral Tablet; TAKE 1 TABLET AT BEDTIME;Therapy: 68Xpu7356 to (Evaluate:11Lcm3245) Requested for: 10Nes5735; LastRx:25Gsl2802 Ordered Rx By: Dali Mcintosh; Dispense: 30 Days ; #:30 Tablet; Refill: 6;For: Migraine, Vomiting; KAYLA = N; Verified Transmission to [place] [address] Vitamin D 1000 UNIT Oral Tablet; TAKE 1 TABLET DAILY;Therapy: 25Goa3635 to (Evaluate:33Fbu8023) Requested for: 03Whf7880; LastRx:29Ona3320 Ordered Rx By: Dali Mcintosh; Dispense: 30 Days ; #:30 Tablet; Refill: 3;For: Vitamin D deficiency; KAYLA = N; Verified Transmission to [place] [address] Cyproheptadine HCl - 4 MG Oral Tablet; TAKE 1 TABLET EVERY 8 HOURS DAILY Requested for: 02Sep2017; Last Rx:02Sep2017 Ordered Rx By: Jessica Coello; Dispense: 30 Days ; #:90 Tablet; Refill: 3;For: Vomiting; KAYLA = N; Rx auto-faxed to [place] [address]; Last Updated By: Juan Antonio Burgos; 09/02/2017 3:51:52 PM Ondansetron HCl - 8 MG Oral Tablet; TAKE 1 TABLET 3 times daily PRN vomiting;Therapy: 16Dec2017 to (Evaluate:49Dss7705) Requested for: 40Mhn9092; LastRx:80Hdf2299 Ordered Rx By: Dali Mcintosh; Dispense: 30 Days ; #:90 Tablet; Refill: 3;For: Vomiting; KAYLA = N; Verified Transmission to [place] [address] Phenergan 25 MG SUPP; INSERT 1 SUPPOSITORY RECTALLY EVERY 12 HOURS ASNEEDED FOR NAUSEA AND VOMITING;Therapy: 03Nov2015 to (Last Rx:16Dec2017) Requested for: 16Dec2017 Ordered Rx By: Dali Mcintosh; Dispense: 0 Days ; #:12 Suppository; Refill: 1;For: Vomiting; KAYLA = N; Rx auto-faxed to [facility]; Last Updated By: Loretta ConsumerBell; 12/16/2017 1:32:36 PM Promethazine HCl - 25 MG Oral Tablet; 1 tablet orally every 12 hours as needed fornausea/vomiting Requested for: 16Dec2017; Last Rx:16Dec2017 Ordered Rx By: Dali Mcintosh; Dispense: 0 Days ; #:60 Tablet; Refill: 0;For: Vomiting; KAYLA = N; Rx auto-faxed to [facility]; Last Updated By: Loretta ConsumerBell; 12/16/2017 1:32:35 PM Atenolol 25 MG Oral [...] 04/14/2018 10:03:53 AM Vitals Vital Signs Recorded: 57Nat0434 10:01DPSgegznfz071Osfrcirzl 83Evmbbk6 ft 2.40 isHpemrh499 lb 14.53 ozBMI Xmsasiuamy29.18BSA Calculated1.94BMI Smpvwqxnvx96 %2-20 Stature Msnucsqprj49 %2-20 Weight Zqpqmsyipm21 % Physical ExamToday's exam finds a cooperative [...] Treat Status:Hold For - Scheduling Requested for: 14Zmm4377 Ordered;For: Snoring; Ordered By: Mere Simpson Performed: [...] or Ashley Vortex withmouthpiece;Therapy: 23Sep2014 to (Last Rx:96Fkk3801) Requested for: 24Mar2015 OrderedAfrin 12 Hour 0.05 % Nasal Solution; USE 1 SPRAY IN EACH NOSTRIL TWICE DAILY;Therapy: 22Dec2017 to (Evaluate:25Dec2017) Requested for: 22Dec2017; LastRx:22Dec2017 OrderedAlbuterol Sulfate (2.5 MG/3ML) 0.083% Inhalation Nebulization Solution; Inhale one vialevery 4-6 hours as needed for cough, wheezing and shortness of breath;Therapy: 23Sep2014 to (Evaluate:20Oct2015) Requested for: 24Mar2015; LastRx:10Roi7125 OrderedAmitriptyline HCl - 25 MG Oral Tablet; TAKE 1 TABLET AT BEDTIME;Therapy: 42Loj5069 to (Evaluate:32Gde5318) Requested for: 70Uqy3418; LastRx:58Isf9217 OrderedAtenolol 25 MG Oral Tablet; TAKE 1 TABLET DAILY;Therapy: (Recorded:28Bwa9739) to RecordedCyproheptadine HCl - 4 MG Oral Tablet; TAKE 1 TABLET EVERY 8 HOURS DAILY Requested for: 02Sep2017; Last Rx:21Rcc1429 OrderedFludrocortisone Acetate 0.1 MG Oral Tablet; take one tablet twice a day;Therapy: (Recorded:36Ekk5984) to RecordedGabapentin 300 MG Oral Capsule; TAKE 1 CAPSULE 3 TIMES DAILY;Therapy: 28Sep2017 to (Evaluate:81Wgi4899) Requested for: 18Feb2018; LastRx:18Feb2018 OrderedHyoscyamine Sulfate 0.125 MG Oral Tablet Disintegrating; 2 tablets orally every 8 hours Requested for: 28Sep2017; Last Rx:28Sep2017 OrderedLansoprazole 30 MG Oral Capsule Delayed Release; TAKE 1 CAPSULE EVERYMORNING DAILY;Therapy: 83Ksa2501 to (Evaluate:80Ibd7034) Requested for: 78Wwx8914; LastRx:18Apr2018 OrderedMagnesium Oxide 400 MG Oral Tablet; 1 TABLET ORALLY ONCE A DAY;Therapy: (Recorded:64Ola4212) to RecordedOndansetron HCl - 8 MG Oral Tablet; TAKE 1 TABLET 3 times daily PRN vomiting;Therapy: 16Dec2017 to (Evaluate:03Bwu2073) Requested for: 18Apr2018; LastRx:18Apr2018 OrderedPhenergan 25 MG SUPP; INSERT 1 SUPPOSITORY RECTALLY EVERY 12 HOURS ASNEEDED FOR NAUSEA AND VOMITING;Therapy: 77Zys8943 to (Last Rx:16Dec2017) Requested for: 16Dec2017 OrderedPredniSONE 20 MG Oral Tablet; Take 3 tablets once daily for 5-7 days. To be used in thesetting of a severe asthma flare-up. Please call the office prior to starting;Therapy: 23Sep2014 to (Last Rx:57Apx9273) Requested for: 14Apr2018 OrderedProAir HFA 108 (90 Base) MCG/ACT Inhalation Aerosol Solution; Inhale 2-4 puffs every4-6 hours as needed for cough, wheezing or shortness of breath and prior to exercise;Therapy: 23Sep2014 to (Last Rx:66Owi7264) Requested for: 24Mar2015 OrderedPromethazine HCl - 25 MG Oral Tablet; 1 tablet orally every 12 hours as needed fornausea/vomiting Requested for: 16Dec2017; Last Rx:16Dec2017 OrderedQvar 80 MCG/ACT Inhalation Aerosol Solution; INHALE TWO PUFFS BY MOUTH TWICEA DAY WITH A SPACER;Therapy: 23Sep2014 to (Last Rx:98Cdd1806) Requested for: 89Mnc2062 OrderedTri-Sprintec 0.18/0.215/0.25 MG-35 MCG Oral Tablet;Therapy: 12Mlb5184 to RecordedUnspecified Medication; Vitamin B2-400 Oral Capsule1 capsule orally once a day;Therapy: (Recorded:72Iqa8581) to RecordedVitamin D 1000 UNIT Oral Tablet; TAKE 1 TABLET DAILY;Therapy: 14Apr2018 to (Evaluate:28Rpw7092) Requested for: 18Apr2018; LastRx:18Apr2018 Ordered Signatures Electronically signed by : Mere Simpson APRN-JIMMYS; Jun 05 2018 10:46AM EST (Author) Normal [facility] Discharge Summaryon 08-24-20 Discharge Summary Send Summary:Dischar ge Summary Providers:Provider Role Provider Name? Referring Dali Mcintosh? Attending Adeola Colon? Primary Zac Daniel Recipients: Adeola Colon MD Baez-Socorro, Virginia M, MD Bumagina, Natalie, MD - [phone] [[id number]]Dali Mcintosh MD - [phone] [Preferred]Discharge:Summar y:Admission Date: .09-Aug-2017 21:44:00Discharge Date: 96-Cvd-5345Uwbeudhsu Physician at Discharge: Adeola Colon NAdmission Reason: vomiting, hematemesisFinal Discharge Diagnoses: Functional abdominal painProcedures: null Aug 11, 2017Condition at Discharge: SatisfactoryDisposition at Discharge: .HomeVital Signs: T P R BP LmC2Hbjbf 36.6 70 18 126/84 98%Date/Time 08/24 8:58 [...] months, but worse recently. She was admitted [facility] last month for the vomiting. [...] Saturday September 02, 2017 at3:30 pm. Location: [place] [address] Jihftb-Up Appointment 02: Physician/Dept/Service: Neurology: Caty Simpson Call to Schedule in: 1st available Scheduled Date/Time: 31-Aug-2017 14:00 Location: [address] [place] [address] Msdylu-Up Appointment 03: Physician/Dept/Service: ENT (ear, nose, and [...] 24-Aug-2017 23:59 by Adeola Colon () Normal [facility] PD ABDOMEN, SINGLE VIEWon PD ABDOMEN, SINGLE [...] gastric body.Electronically signed by: PHYSICIAN CECILIA Normal [facility] NR MRI BRAIN WOon 08-13-2017 NR MRI [...] Chiari malformation. The study was interpreted at [facility].Electronicall y signed by: SABAS GARCIA MD Normal [facility] Surgical Pathology Depar tmenton 08-11-2017 [facility] Surgical Pathology Department Name PILI PARIKH Pathologist: CHRISTINE PANDA, SANAZate of Procedure: 08/11/2017Date Received: 08/11/2017Date Reported 08/12/2017Submitting [...] submitted in toto in one cassette.MXWmxw/08/11/2017 Normal [facility] Comment on above: Performed By: #### T 4FRE ####[facility] [place] [address] AMYLASEon 08-10-2017 Amylase enzyme act/vol 19 U/L Normal 18 - 76 [facility] Comment on above: Performed By: #### V TDOH ####[facility] [place] [address] C-REACTIVE PROTEINon 017 CRP mass conc 0.34 mg/dL Normal [facility] Comment on above: Result Comment: REF VALUE< 1.00 Performed By: #### V TDOH ####[facility] [place] [address] CBC AND DIFFERENTIALon 08-10 % AUTOMATED IMMATURE GRAN 0.3 % Normal 0.0 - 1.0 [facility] Comment on above: Result Comment: Perc ent differential counts (%) should be interpreted in the context of the absolute cell counts (cells/L). Performed By: #### V TDOH ####[facility] [place] [address] % NEUTROPHIL 52.9 % Normal 33.0 - 69.0 [facility] Comment on above: Performed By: #### V TDOH ####[facility] [place] [address] Basophils/100 WBC Auto (Bld) 0.4 % Normal 0.0 - 1.0 [facility] Comment on above: Performed By: #### V TDOH ####[facility] [place] [address] Basophils/100 WBC Auto (Bld) 0.03 x10E9/L Normal 0.00 - 0.10 [facility] Comment on above: Performed By: #### V TDOH ####[facility] [place] [address] Eosinophils Auto #/vol (Bld) 0.29 10*3/uL Normal 0.00 - 0.70 [facility] Comment on above: Performed By: #### V TDOH ####[facility] [place] [address] Eosinophils/100 WBC Auto (Bld) 4.2 % Normal 0.0 - 5.0 [facility] Comment on above: Performed By: #### V TDOH ####[facility] [place] [address] Erythrocyte distribution width Auto Ratio (RBC) 14.1 % Normal 11.5 - 14.5 [facility] Comment on above: Performed By: #### V TDOH ####[facility] [place] [address] Hematocrit Auto Volume Fraction (Bld) 35.4 % Low 36.0 - 46.0 [facility] Comment on above: Performed By: #### V TDOH ####[facility] [place] [address] Hemoglobin mass conc (Bld) 11.0 g/dL Low 12.0 - 16.0 [facility] Comment on above: Performed By: #### V TDOH ####[facility] [place] [address] Lymphocytes Auto #/vol (Bld) 2.33 10*3/uL Normal 1.80 - 4.80 [facility] Comment on above: Performed By: #### V TDOH ####[facility] [place] [address] Lymphocytes/100 WBC Auto (Bld) 33.8 % Normal 28.0 - 48.0 [facility] Comment on above: Performed By: #### V TDOH ####[facility] [place] [address] MCHC Auto mass conc (RBC) 31.1 g/dL Normal 31.0 - 37.0 [facility] Comment on above: Performed By: #### V TDOH ####[facility] [place] [address] MCV Auto Entitic volume (RBC) 80 fL Normal 78 - 102 [facility] Comment on above: Performed By: #### V TDOH ####[facility] [place] [address] Monocytes Auto #/vol (Bld) 0.58 10*3/uL Normal 0.10 - 1.00 [facility] Comment on above: Performed By: #### V TDOH ####[facility] [place] [address] Monocytes/100 WBC Auto (Bld) 8.4 % Normal 3.0 - 9.0 [facility] Comment on above: Performed By: #### V TDOH ####[facility] [place] [address] Neutrophils Auto #/vol (Bld) 3.65 10*3/uL Normal 1.20 - 7.70 [facility] Comment on above: Performed By: #### V TDOH ####[facility] [place] [address] Nucleated RBC/100 WBC Ratio (Bld) 0.0 /100 WBC Normal 0.0-0.0 [facility] Comment on above: Performed By: #### V TDOH ####[facility] [place] [address] Platelets Auto #/vol (Bld) 256 10*3/uL Normal 150 - 400 [facility] Comment on above: Performed By: #### V TDOH ####[facility] [place] [address] RBC Auto #/vol (Bld) 4.40 x10E12/L Normal 4.10 - 5.20 [facility] Comment on above: Performed By: #### V TDOH ####[facility] [place] [address] WBC Auto #/vol (Bld) 6.9 10*3/uL Normal 4.5 - 13.5 [facility] Comment on above: Performed By: #### V TDOH ####[facility] [place] [address] CELIAC DISEASE SEROLOGY PANE Tushar 08-10-2017 GLIADIN ABS, IGA 0 Normal 0 - 14 [facility] Comment on above: Result Comment: Fals e negative Deamidated Gliadin Peptide Antibody, IgA results can occur in patients already adhering to a gluten-free diet or patients with IgA deficiency. Tissue Transglutaminase Antibody, IgA is the preferred test for screening patients with suspected Celiac Disease. Performed By: #### T 4FRE ####[facility] [place] [address] GLIADIN ABS, IGG <1 Normal 0 - 14 [facility] Comment on above: Result Comment: Fals e negative Deamidated Gliadin Peptide Antibody, IgG results can occur in patients already adhering to a gluten-free diet. Tissue Transglutaminase Antibody, IgA is the preferred test for screening patients with suspected Celiac Disease. Performed By: #### T 4FRE ####[facility] [place] [address] TTG AB,IGA <1 Normal 0 - 14 [facility] Comment on above: Result Comment: Loni ac disease is unlikely. False negative Tissue Transglutaminase Antibody, IgA results can occur in approximately 10% of patients with celiac disease, patients already adhering to a gluten-free diet, or patients with IgA deficiency. Performed By: #### T 4FRE ####[facility] [place] [address] TTG AB,IGG <1 Normal 0 - 14 [facility] Comment on above: Result Comment: Fals e negative Tissue Transglutaminase Antibody, IgG results can occur in patients already adhering to a gluten-free diet. Tissue Transglutaminase Antibody, IgA is the preferred test for screening patients with suspected Celiac Disease. Performed By: #### T 4FRE ####[place] [id number] [place] [address] COAGULATION SCREENon 017 aPTT Coag time (Bld) 28 s Normal 25 - 36 [facility] Comment on above: Result Comment: THE APTT IS NO LONGER USED FOR MONITORING UNFRACTIONATED HEPARIN THERAPY. FOR MONITORING HEPARIN THERAPY, USE THE HEPARIN ASSAY. Performed By: #### V TDOH ####[facility] [place] [address] INR Coag RelTime (PPP) 1.1 {INR} Normal 0.9 - 1.1 [facility] Comment on above: Performed By: #### V TDOH ####[facility] [place] [address] Prothrombin time (PT) Coag time (PPP) 12.1 s Normal 9.8 - 12.7 [facility] Comment on above: Performed By: #### V TDOH ####[facility] [place] [address] HEPATIC FUNCTION PANELon ALP enzyme act/vol 128 U/L Normal 52 - 239 [facility] Comment on above: Performed By: #### V TDOH ####[facility] [place] [address] ALT enzyme act/vol 39 U/L High 3 - 28 [facility] Comment on above: Result Comment: Christen ents treated with Sulfasalazine may generate falsely decreased results for ALT. Performed By: #### V TDOH ####[facility] [place] [address] AST enzyme act/vol 27 U/L High 9 - 24 [facility] Comment on above: Performed By: #### V TDOH ####[facility] [place] [address] Bilirubin mass conc 0.4 mg/dL Normal 0.0 - 0.9 [facility] Comment on above: Performed By: #### V TDOH ####[facility] [place] [address] Bilirubin.direct mass conc 0.1 mg/dL Normal 0.0 - 0.3 [facility] Comment on above: Performed By: #### V TDOH ####[facility] [place] [address] Protein mass conc 5.7 g/dL Low 6.2 - 7.7 [facility] Comment on above: Performed By: #### V TDOH ####[facility] [place] [address] LIPASEon 08-10-2017 Lipase enzyme act/vol 16 U/L Normal 9 - 82 [facility] Comment on above: Result Comment: Shanda puncture immediately after or during the administration of Metamizole may lead to falsely low results. Testing should be performed immediately prior to Metamizole dosing. Performed By: #### V TDOH ####[facility] [place] [address] RENAL FUNCTION PANELon 08-10 Albumin mass conc 3.8 g/dL Normal 3.4 - 5.0 [facility] Comment on above: Performed By: #### T 4FRE ####[facility] [place] [address] Performed By: #### V TDOH ####[facility] [place] [address] Anion gap 3 molar conc 13 mmol/L Normal 10 - 30 [facility] Comment on above: Performed By: #### T 4FRE ####[facility] [place] [address] Calcium mass conc 9.2 mg/dL Normal 8.5 - 10.7 [facility] Comment on above: Performed By: #### T 4FRE ####[facility] [place] [address] Chloride molar conc 106 mmol/L Normal 98 - 107 [facility] Comment on above: Performed By: #### T 4FRE ####[facility] [place] [address] Creatinine mass conc 0.56 mg/dL Normal 0.50 - 1.00 [facility] Comment on above: Performed By: #### T 4FRE ####[facility] [place] [address] Glucose mass conc 106 mg/dL High 74 - 99 [facility] Comment on above: Performed By: #### T 4FRE ####[facility] [place] [address] HCO3 molar conc (Bld) 26 mmol/L Normal 18 - 27 [facility] Comment on above: Performed By: #### T 4FRE ####[facility] [place] [address] Phosphate mass conc 4.3 mg/dL Normal 3.0 - 5.4 [facility] Comment on above: Result Comment: The performance characteristics of phosphorus testing in heparinized plasma have been validated by the individual laboratory site where testing is performed. Testing on heparinized plasma is not approved by the FDA; however, such approval is not necessary. Performed By: #### T 4FRE ####[facility] [place] [address] Potassium molar conc 3.9 mmol/L Normal 3.5 - 5.3 [facility] Comment on above: Performed By: #### T 4FRE ####[facility] [place] [address] Sodium molar conc 141 mmol/L Normal 136 - 145 [facility] Comment on above: Performed By: #### T 4FRE ####[facility] [place] [address] Urea nitrogen mass conc 11 mg/dL Normal 6 - 23 [facility] Comment on above: Performed By: #### T 4FRE ####[facility] [place] [address] AMYLASEon 08-09-2017 Amylase enzyme act/vol 22 U/L Normal 18 - 76 [facility] Comment on above: Performed By: #### A MY ####[facility] [place] [address] C-REACTIVE PROTEINon 017 CRP mass conc 0.36 mg/dL Normal [facility] Comment on above: Result Comment: REF VALUE< 1.00 Performed By: #### C RP ####[facility] [place] [address] CBC AND DIFFERENTIALon 08-09 % AUTOMATED IMMATURE GRAN 0.3 % Normal 0.0 - 1.0 [facility] Comment on above: Result Comment: Perc ent differential counts (%) should be interpreted in the context of the absolute cell counts (cells/L). Performed By: #### C BCDF ####[facility] [address] % NEUTROPHIL 60.6 % Normal 33.0 - 69.0 [facility] Comment on above: Performed By: #### C BCDF ####[facility] [place] [address] Basophils/100 WBC Auto (Bld) 0.04 x10E9/L Normal 0.00 - 0.10 [facility] Comment on above: Performed By: #### C BCDF ####[facility] [place] [address] Basophils/100 WBC Auto (Bld) 0.5 % Normal 0.0 - 1.0 [facility] Comment on above: Performed By: #### C BCDF ####[id number] [place] [address] Eosinophils Auto #/vol (Bld) 0.28 10*3/uL Normal 0.00 - 0.70 [facility] Comment on above: Performed By: #### C BCDF ####[id number] [place] [address] Eosinophils/100 WBC Auto (Bld) 3.6 % Normal 0.0 - 5.0 [facility] Comment on above: Performed By: #### C BCDF ####[id number] [place] [address] Erythrocyte distribution width Auto Ratio (RBC) 14.4 % Normal 11.5 - 14.5 [facility] Comment on above: Performed By: #### C BCDF ####[id number] [place] [address] Hematocrit Auto Volume Fraction (Bld) 37.7 % Normal 36.0 - 46.0 [facility] Comment on above: Performed By: #### C BCDF ####[id number] [place] [address] Hemoglobin mass conc (Bld) 11.5 g/dL Low 12.0 - 16.0 [facility] Comment on above: Performed By: #### C BCDF ####[id number] [place] [address] Lymphocytes Auto #/vol (Bld) 2.20 10*3/uL Normal 1.80 - 4.80 [facility] Comment on above: Performed By: #### C BCDF ####[id number] [place] [address] Lymphocytes/100 WBC Auto (Bld) 28.2 % Normal 28.0 - 48.0 [facility] Comment on above: Performed By: #### C BCDF ####[id number] [place] [address] MCHC Auto mass conc (RBC) 30.5 g/dL Low 31.0 - 37.0 [facility] Comment on above: Performed By: #### C BCDF ####[facility] [place] [address] MCV Auto Entitic volume (RBC) 82 fL Normal 78 - 102 [facility] Comment on above: Performed By: #### C BCDF ####[id number] [place] [address] Monocytes Auto #/vol (Bld) 0.53 10*3/uL Normal 0.10 - 1.00 [facility] Comment on above: Performed By: #### C BCDF ####[facility] [place] [address] Monocytes/100 WBC Auto (Bld) 6.8 % Normal 3.0 - 9.0 [facility] Comment on above: Performed By: #### C BCDF ####[id number] [place] [address] Neutrophils Auto #/vol (Bld) 4.73 10*3/uL Normal 1.20 - 7.70 [facility] Comment on above: Performed By: #### C BCDF ####[id number] [place] [address] Nucleated RBC/100 WBC Ratio (Bld) 0.0 /100 WBC Normal 0.0-0.0 [facility] Comment on above: Performed By: #### C BCDF ####[id number] [place] [address] Platelets Auto #/vol (Bld) 290 10*3/uL Normal 150 - 400 [facility] Comment on above: Performed By: #### C BCDF ####[id number] [place] [address] RBC Auto #/vol (Bld) 4.62 x10E12/L Normal 4.10 - 5.20 [facility] Comment on above: Performed By: #### C BCDF ####[id number] [place] [address] WBC Auto #/vol (Bld) 7.8 10*3/uL Normal 4.5 - 13.5 [facility] Comment on above: Performed By: #### C BCDF ####[facility] [place] [address] COAGULATION SCREENon 017 aPTT Coag time (Bld) 29 s Normal 25 - 36 [facility] Comment on above: Result Comment: THE APTT IS NO LONGER USED FOR MONITORING UNFRACTIONATED HEPARIN THERAPY. FOR MONITORING HEPARIN THERAPY, USE THE HEPARIN ASSAY. Performed By: #### V TDOH ####[id number] [place] [address] INR Coag RelTime (PPP) 1.2 {INR} High 0.9 - 1.1 [facility] Comment on above: Performed By: #### V TDOH ####[place] [id number] [place] [address] Prothrombin time (PT) Coag time (PPP) 12.9 s High 9.8 - 12.7 [facility] Comment on above: Performed By: #### V TDOH ####[facility] [place] [address] ESR-WESTERGRENon 08-09-2017 ESR-WESTERGREN 8 mm/h Normal 0 - 13 [facility] Comment on above: Performed By: #### V TDOH ####[id number] [place] [address] GGTon 08-09-2017 GGT 20 U/L Normal 5 - 20 [facility] Comment on above: Performed By: #### G GT ####[facility] [place] [address] HEMOGLOBIN A1Con 08-09-2017 Hemoglobin A1c/Hemoglobin.total mass fraction (Bld) 5.6 % Normal [facility] Comment on above: Result Comment: Diag nosis of Diabetes-Adults Non-Diabetic: < or = 5.6% Increased risk for developing diabetes: 5.7-6.4% Diagnostic of diabetes: > or = 6.5%. Monitoring of Diabetes Age (y) Therapeutic Goal (%) Adults: >18 <7.0 Pediatrics: 13-18 <7.5 7-12 <8.0 0- 6 7.5-8.5 [employer]. Diabetes Care 33(S1), Nov 2009. Performed By: #### V TDOH ####[facility] [place] [address] HEPATIC FUNCTION PANELon ALP enzyme act/vol 133 U/L Normal 52 - 239 [facility] Comment on above: Performed By: #### H EPFP ####[id number] [place] [address] ALT enzyme act/vol 41 U/L High 3 - 28 [facility] Comment on above: Result Comment: Christen ents treated with Sulfasalazine may generate falsely decreased results for ALT. Performed By: #### H EPFP ####[id number] [place] [address] AST enzyme act/vol 25 U/L High 9 - 24 [facility] Comment on above: Performed By: #### H EPFP ####[id number] [place] [address] Bilirubin mass conc 0.3 mg/dL Normal 0.0 - 0.9 [facility] Comment on above: Performed By: #### H EPFP ####[id number] [place] [address] Bilirubin.direct mass conc 0.1 mg/dL Normal 0.0 - 0.3 [facility] Comment on above: Performed By: #### H EPFP ####[id number] [place] [address] Protein mass conc 6.7 g/dL Normal 6.2 - 7.7 [facility] Comment on above: Performed By: #### H EPFP ####[id number] [place] [address] IRON + TIBCon 08-09-2017 % SATURATION 13 % Low 25 - 45 [facility] Comment on above: Performed By: #### I RONT ####[id number] [place] [address] Iron mass conc 53 ug/dL Normal 23 - 138 [facility] Comment on above: Performed By: #### I RONT ####[id number] [place] [address] TIBC 407 ug/dL Normal 240 - 445 [facility] Comment on above: Performed By: #### I RONT ####[facility] [place] [address] LIPASEon 08-09-2017 Lipase enzyme act/vol 17 U/L Normal 9 - 82 [facility] Comment on above: Result Comment: Shanda puncture immediately after or during the administration of Metamizole may lead to falsely low results. Testing should be performed immediately prior to Metamizole dosing. Performed By: #### L IPAS ####[facility] [place] [address] RENAL FUNCTION PANELon 08-09 Albumin mass conc 4.3 g/dL Normal 3.4 - 5.0 [facility] Comment on above: Performed By: #### V TDOH ####[facility] [place] [address] Performed By: #### H EPFP ####[facility] [place] [address] Anion gap 3 molar conc 13 mmol/L Normal 10 - 30 [facility] Comment on above: Performed By: #### V TDOH ####[id number] [place] [address] Calcium mass conc 9.5 mg/dL Normal 8.5 - 10.7 [facility] Comment on above: Performed By: #### V TDOH ####[facility] [place] [address] Chloride molar conc 105 mmol/L Normal 98 - 107 [facility] Comment on above: Performed By: #### V TDOH ####[id number] [place] [address] Creatinine mass conc 0.50 mg/dL Normal 0.50 - 1.00 [facility] Comment on above: Performed By: #### V TDOH ####[id number] [place] [address] Glucose mass conc 83 mg/dL Normal 74 - 99 [facility] Comment on above: Performed By: #### V TDOH ####[id number] [place] [address] HCO3 molar conc (Bld) 27 mmol/L Normal 18 - 27 [facility] Comment on above: Performed By: #### V TDOH ####[facility] [place] [address] Phosphate mass conc 4.1 mg/dL Normal 3.0 - 5.4 [facility] Comment on above: Result Comment: The performance characteristics of phosphorus testing in heparinized plasma have been validated by the individual laboratory site where testing is performed. Testing on heparinized plasma is not approved by the FDA; however, such approval is not necessary. Performed By: #### V TDOH ####[facility] [place] [address] Potassium molar conc 4.1 mmol/L Normal 3.5 - 5.3 [facility] Comment on above: Performed By: #### V TDOH ####[facility] [place] [address] Sodium molar conc 141 mmol/L Normal 136 - 145 [facility] Comment on above: Performed By: #### V TDOH ####[facility] [place] [address] Urea nitrogen mass conc 11 mg/dL Normal 6 - 23 [facility] Comment on above: Performed By: #### V TDOH ####[facility] [place] [address] THYROXINE,FREEon 08-09-2017 THYROXINE,FREE 1.08 ng/dL Normal 0.78 - 1.48 [facility] Comment on above: Result Comment: Thyr oxine Free testing is performed using different testing methodology at [facility] than at other [facility]. Direct result comparisons should only be made within the same method.. Patients receiving more than 5 mg/day of biotin may have interference in test results. A sample should be taken no sooner than eight hours after previous dose. Contact [phone] for additional information. Performed By: #### T 4FRE ####[facility] [id number] TSHon 08-09-2017 Thyrotropin Qn 1.71 m[IU]/L Normal 0.44 - 3.98 [facility] Comment on above: Result Comment: TSH testing is performed using different testing methodology at [facility] than at other [facility]. Direct result comparisons should only be made within the same method.. Patients receiving more than 5 mg/day of biotin may have interference in test results. A sample should be taken no sooner than eight hours after previous dose. Contact [phone] for additional information. Performed By: #### T SH2 ####[facility] [place] [address] VITAMIN D, 25-HYDROXYon 07-29 VITAMIN D, 25-HYDROXY 28 ng/mL Abnormal [facility] Comment on above: Result Comment: .DEF ICIENCY: < 20 NG/MLINSUFFICIENCY: 20-29 NG/MLOPTIMUM LEVEL: 30-80 NG/MLPOSSIBLE TOXICITY: > 80 NG/MLTHIS ASSAY ACCURATELY QUANTIFIES THE SUM OFVITAMIN D3, 25-HYDROXY AND VIT D2,25-HYDROXY. Performed By: #### V TDOH ####[facility] [place] [address] Vital Signs Date Time Vital Sign Value Performing Clinician Facility 01-16-2025 20:30-0500 [facility] 01-16-2025 20:30-0500 Respiratory rate 12 /min [facility] 01-16-2025 20:30-0500 SaO2% (BldA) [Mass fraction] 98 % [facility] 01-16-2025 19:30-0500 Diastolic blood pressure 105 mm[Hg] [facility] 01-16-2025 19:30-0500 Heart rate 48 /min [facility] 01-16-2025 19:30-0500 Mean blood pressure 115 mm[Hg] [facility] 01-16-2025 19:30-0500 Respiratory rate 13 /min [facility] 01-16-2025 19:30-0500 SaO2% (BldA) [Mass fraction] 98 % [facility] 01-16-2025 19:30-0500 Systolic blood pressure 135 mm[Hg] [facility] 01-16-2025 17:53-0500 Body temperature 99.14 [degF] [facility] 01-16-2025 17:53-0500 Diastolic blood pressure 71 mm[Hg] [facility] 01-16-2025 17:53-0500 Heart rate 64 /min [facility] 01-16-2025 17:53-0500 Respiratory rate 20 /min [facility] 01-16-2025 17:53-0500 SaO2% (BldA) [Mass fraction] 100 % [facility] 01-16-2025 17:53-0500 Systolic blood pressure 129 mm[Hg] [facility] 10-29-2024 00:01-0500 Diastolic blood pressure 94 mm[Hg] [facility] Work Phone[facility] 10-29-2024 00:01-0500 Heart rate 72 /min Services [facility] Work Phone: [facility] 10-29-2024 00:01-0500 Respiratory rate 16 /min [facility] Work Phone: [facility] 10-29-2024 00:01-0500 SaO2% (BldA) [Mass fraction] 99 % [facility] Work Phone: [facility] 10-29-2024 00:01-0500 Systolic blood pressure 156 mm[Hg] [facility] Work Phone: [facility] 10-28-2024 18:07-0500 Body height 157.48 cm [facility] Work Phone: [facility] 10-28-2024 18:07-0500 Body temperature 98.6 [degF] [facility] Work Phone: [facility] 10-28-2024 18:07-0500 Body weight 92.85 kg [facility] Work Phone: [facility] 08-03-2024 23:10-0400 Diastolic blood pressure 68 mm[Hg] [facility] Work Phone: [facility] 08-03-2024 23:10-0400 Heart rate 95 /min [facility] Work Phone: [facility] 08-03-2024 23:10-0400 Respiratory rate 18 /min [facility] Work Phone: [facility] 08-03-2024 23:10-0400 SaO2% (BldA) [Mass fraction] 99 % [facility] Work Phone: [facility] 08-03-2024 23:10-0400 Systolic blood pressure 115 mm[Hg] [facility] Work Phone: [facility] 08-03-2024 20:35-0400 Body height 157.48 cm [facility] Work Phone: [facility] 08-03-2024 20:35-0400 Body temperature 99.1 [degF] [facility] Work Phone: [facility] 08-03-2024 20:35-0400 Body weight 90.71 kg Services [facility] Work Phone: [facility] 07-30-2024 22:55-0400 Diastolic blood pressure 72 [...] 19:28-0400 Heart rate 55 /min Cresencio Colten [facility] 07-30-2024 19:28-0400 Respiratory rate 16 /min Cresencio Colten [facility] 07-30-2024 19:28-0400 SaO2% (BldA) [Mass fraction] 97 % Cresencio Colten [facility] 07-30-2024 19:28-0400 Systolic blood pressure 118 mm[Hg] Cresencio Colten [facility] 03-19-2024 00:10-0400 Diastolic blood pressure 90 mm[Hg] [facility] Work Phone: [facility] 03-19-2024 00:10-0400 Heart rate 110 /min [facility] Work Phone: [facility] 03-19-2024 00:10-0400 Respiratory rate 18 /min [facility] Work Phone: [facility] 03-19-2024 00:10-0400 SaO2% (BldA) [Mass fraction] 100 % [facility] [employer] Work Phone: [facility] 03-19-2024 00:10-0400 Systolic blood pressure 144 mm[Hg] [facility] [employer] Work Phone: [facility] 03-18-2024 22:03-0400 Body height 160.02 cm [facility] [employer] Work Phone: [facility] 03-18-2024 22:03-0400 Body temperature 98.3 [degF] Services [facility] [employer] Work Phone: [facility] 03-18-2024 22:03-0400 Body weight 92.2 kg [facility] [employer] Work Phone: [facility] 03-15-2024 13:43-0400 Diastolic blood pressure 89 mm[Hg] [facility] 03-15-2024 13:43-0400 Heart rate 51 /min [facility] 03-15-2024 13:43-0400 Mean blood pressure 107 mm[Hg] [facility] 03-15-2024 13:43-0400 Respiratory rate 16 /min [facility] 03-15-2024 13:43-0400 SaO2% (BldA) [Mass fraction] 100 % [facility] 03-15-2024 13:43-0400 Systolic blood pressure 144 mm[Hg] [facility] 03-15-2024 12:01-0400 Diastolic blood pressure 87 mm[Hg] [facility] 03-15-2024 12:01-0400 Heart rate 52 /min [facility] 03-15-2024 12:01-0400 Mean blood pressure 107 mm[Hg] [facility] 03-15-2024 12:01-0400 SaO2% (BldA) [Mass fraction] 100 % [facility] 03-15-2024 12:01-0400 Systolic blood pressure 148 mm[Hg] [facility] 03-15-2024 10:35-0400 Body temperature 97.52 [degF] [facility] 03-15-2024 10:35-0400 Diastolic blood pressure 86 mm[Hg] [facility] 03-15-2024 10:35-0400 Heart rate 60 /min [facility] 03-15-2024 10:35-0400 Respiratory rate 18 /min [facility] 03-15-2024 10:35-0400 SaO2% (BldA) [Mass fraction] 98 % [facility] 03-15-2024 10:35-0400 Systolic blood pressure 143 mm[Hg] [facility] 03-13-2024 22:00-0400 Diastolic blood pressure 105 mm[Hg] Femi Roman [facility] 03-13-2024 22:00-0400 Heart rate 53 /min Femi Roman [facility] 03-13-2024 22:00-0400 Mean blood pressure 117 mm[Hg] Femi Roman [facility] 03-13-2024 22:00-0400 SaO2% (BldA) [Mass fraction] 100 % Femi Roman [facility] 03-13-2024 22:00-0400 Systolic blood pressure 140 mm[Hg] Femi Jessie [facility] 03-13-2024 21:00-0400 Diastolic blood pressure 106 mm[Hg] Femi Jessie [facility] 03-13-2024 21:00-0400 Heart rate 93 /min Femi Jessie [facility] 03-13-2024 21:00-0400 Mean blood pressure 119 mm[Hg] Femi Jessie [facility] 03-13-2024 21:00-0400 Respiratory rate 21 /min Femi Jessie [facility] 03-13-2024 21:00-0400 SaO2% (BldA) [Mass fraction] 98 % Femi Jessie [facility] 03-13-2024 21:00-0400 Systolic blood pressure 144 mm[Hg] Femi Jessie [facility] 03-13-2024 20:00-0400 Diastolic blood pressure 103 mm[Hg] Femi Jessie [facility] 03-13-2024 20:00-0400 Heart rate 50 /min Femi Jesise [facility] 03-13-2024 20:00-0400 Mean blood pressure 120 mm[Hg] Femi Jessie [facility] 03-13-2024 20:00-0400 Systolic blood pressure 153 mm[Hg] Femi Jessie [facility] 03-13-2024 19:38-0400 Respiratory rate 14 /min Femi Jessie [facility] 03-13-2024 18:36-0400 Respiratory rate 18 /min Femi Jessie [facility] 03-13-2024 17:51-0400 Body temperature 98.24 [degF] Femi Roman [facility] 03-13-2024 17:36-0400 Body temperature 98.24 [degF] Femi Roman [facility] 03-13-2024 17:36-0400 Heart rate 61 /min Femi Roman [facility] 03-13-2024 17:36-0400 Respiratory rate 18 /min Femi Roman [facility] 07-31-2023 18:09-0400 Body height 157.48 cm [facility] Work Phone: [facility] 07-31-2023 18:09-0400 Body temperature 98.6 [degF] [facility] Work Phone: [facility] 07-31-2023 18:09-0400 Body weight 84 kg [facility] Work Phone: [facility] 07-31-2023 18:09-0400 Diastolic blood pressure 106 mm[Hg] [facility] Work Phone: [facility] 07-31-2023 18:09-0400 Heart rate 87 /min [facility] Work Phone: [facility] 07-31-2023 18:09-0400 Respiratory rate 18 /min [facility] Work Phone: [facility] 07-31-2023 18:09-0400 SaO2% (BldA) [Mass fraction] 98 % [facility] Work Phone: [facility] 07-31-2023 18:09-0400 Systolic blood pressure 150 mm[Hg] [facility] Work Phone: [facility] 05-25-2023 13:11-0400 Diastolic blood pressure 96 mm[Hg] [facility] Work Phone: [facility] 05-25-2023 13:11-0400 Heart rate 60 /min [facility] [employer] Work Phone: [facility] 05-25-2023 13:11-0400 Respiratory rate 16 /min Services [facility] [employer] Work Phone: [facility] 05-25-2023 13:11-0400 SaO2% (BldA) [Mass fraction] 97 % [facility] [employer] Work Phone: [facility] 05-25-2023 13:11-0400 Systolic blood pressure 160 mm[Hg] Services [facility] [employer] Work Phone: [facility] 05-25-2023 11:56-0400 Inhaled oxygen flow rate 6 L/min [facility] [employer] Work Phone: [facility] 05-25-2023 11:54-0400 Body temperature 97.2 [degF] [facility] [employer] Work Phone: [facility] 05-25-2023 09:39-0400 Body height 160.02 cm Services [facility] [employer] Work Phone: [facility] 05-25-2023 09:39-0400 Body mass index (BMI) [Percentile] Per age and sex 96.6 % [facility] [employer] Work Phone: [facility] 05-25-2023 09:39-0400 Body mass index (BMI) [Ratio] 33.6 kg/m2 [facility] [employer] Work Phone: [facility] 05-25-2023 09:39-0400 Body weight 86.18 kg [facility] [employer] Work Phone: [facility] 05-23-2023 08:00-0400 Body height 157.48 cm Colten Miller Other [employer] Other 05-23-2023 08:00-0400 Body mass index (BMI) [Ratio] 34.75 kg/m2 Colten Miller Other [employer] Other 05-23-2023 08:00-0400 Body weight 86.18 kg Colten Miller Other [facility] [employer] Other 01-07-2023 14:08-0500 Body height 157.48 cm Services [facility] [employer] Work Phone: [facility] 01-07-2023 12:34-0500 Body temperature 98.1 [degF] Services [facility] [employer] Work Phone: [facility] 01-07-2023 12:34-0500 Diastolic blood pressure 86 mm[Hg] Services [facility] [employer] Work Phone: [facility] 01-07-2023 12:34-0500 Heart rate 75 /min Services [facility] [employer] Work Phone: [facility] 01-07-2023 12:34-0500 SaO2% (BldA) [Mass fraction] 100 % [facility] [employer] Work Phone: [facility] 01-07-2023 12:34-0500 Systolic blood pressure 147 mm[Hg] Services [facility] [employer] Work Phone: [facility] 01-07-2023 11:57-0500 Respiratory rate 18 /min Services [facility] [employer] Work Phone: [facility] 01-07-2023 06:00-0500 Body weight 78.2 kg Services [facility] [employer] Work Phone: [facility] 01-06-2023 18:29-0500 Diastolic blood pressure 82 mm[Hg] Services [facility] [employer] Work Phone: [facility] 01-06-2023 18:29-0500 Heart rate 64 /min Services [facility] [employer] Work Phone: [facility] 01-06-2023 18:29-0500 Respiratory rate 16 /min [facility] [facility] Work Phone: [facility] 01-06-2023 18:29-0500 SaO2% (BldA) [Mass fraction] 98 % Services [facility] Work Phone: [facility] 01-06-2023 18:29-0500 Systolic blood pressure 139 mm[Hg] Services [facility] Work Phone: [facility] 01-06-2023 11:12-0500 Body height 157.48 cm Services [facility] Work Phone: [facility] 01-06-2023 11:12-0500 Body temperature 98 [degF] Services [facility] Work Phone: [facility] 01-06-2023 11:12-0500 Body weight 77.11 kg Services [facility] Work Phone: [facility] 01-02-2023 04:00-0500 Heart rate 62 /min Services [facility] Work Phone: [facility] 01-02-2023 04:00-0500 Respiratory rate 18 /min Services [facility] Work Phone: [facility] 01-02-2023 04:00-0500 SaO2% (BldA) [Mass fraction] 100 % Services [facility] Work Phone: [facility] 01-02-2023 02:37-0500 Diastolic blood pressure 85 mm[Hg] Services [facility] Work Phone: [facility] 01-02-2023 02:37-0500 Systolic blood pressure 155 mm[Hg] Services [facility] Work Phone: [facility] 01-02-2023 01:14-0500 Body height 157.48 cm Services [facility] Work Phone: [facility] 01-02-2023 01:14-0500 Body temperature 98 [degF] Services [facility] Work Phone: [facility] 01-02-2023 01:14-0500 Body weight 77.11 kg Services [facility] Work Phone: [facility] 12-31-2022 12:11-0500 Heart rate 70 /min Services [facility] Work Phone: [facility] 12-31-2022 12:08-0500 Body height 157.48 cm Services [facility] Work Phone: [facility] 12-31-2022 12:08-0500 Body temperature 97.7 [degF] Services [facility] Work Phone: [facility] 12-31-2022 12:08-0500 Body weight 79 kg Services [facility] [employer] [facility] Work Phone: [facility] 12-31-2022 12:08-0500 Diastolic blood pressure 87 mm[Hg] Services [facility] [employer] [facility] Work Phone: [facility] 12-31-2022 12:08-0500 Respiratory rate 18 /min Services [facility] Work Phone: [facility] 12-31-2022 12:08-0500 SaO2% (BldA) [Mass fraction] 99 % Services [facility] [employer] [facility] Work Phone: [facility] 12-31-2022 12:08-0500 Systolic blood pressure 134 mm[Hg] Services [facility] Work Phone: [facility] 11-09-2022 15:15-0500 Body height 157.48 cm Services [facility] Work Phone: [facility] 11-09-2022 15:15-0500 Body temperature 98.4 [degF] Services [facility] Work Phone: [facility] 11-09-2022 15:15-0500 Body weight 81.64 kg Services [facility] Work Phone: [facility] 11-09-2022 15:15-0500 Diastolic blood pressure 90 mm[Hg] Services [facility] Work Phone: [facility] 11-09-2022 15:15-0500 Heart rate 95 /min Services [facility] [employer] [facility] Work Phone: [facility] 11-09-2022 15:15-0500 Respiratory rate 16 /min Services [facility] Work Phone: [facility] 11-09-2022 15:15-0500 SaO2% (BldA) [Mass fraction] 100 % Services [facility] Work Phone: [facility] 11-09-2022 15:15-0500 Systolic blood pressure 140 mm[Hg] [facility] Work Phone: [facility] 11-07-2022 13:40-0500 Diastolic blood pressure 85 mm[Hg] [facility] Work Phone: [facility] 11-07-2022 13:40-0500 Heart rate 68 /min Services [facility] Work Phone: [facility] 11-07-2022 13:40-0500 Respiratory rate 16 /min [facility] Work Phone: [facility] 11-07-2022 13:40-0500 SaO2% (BldA) [Mass fraction] 100 % Services [facility] Work Phone: [facility] 11-07-2022 13:40-0500 Systolic blood pressure 119 mm[Hg] [facility] Work Phone: [facility] 11-07-2022 11:05-0500 Body temperature 98.2 [degF] Services [facility] Work Phone: [facility] 11-07-2022 11:04-0500 Body height 158.75 cm Services [facility] Work Phone: [facility] 11-07-2022 11:04-0500 Body weight 77 kg [facility] Work Phone: [facility] 11-02-2022 09:53-0500 Diastolic blood pressure 89 mm[Hg] [facility] Work Phone: [facility] 11-02-2022 09:53-0500 Heart rate 50 /min Services [facility] Work Phone: [facility] 11-02-2022 09:53-0500 Respiratory rate 18 /min Services [facility] Work Phone: [facility] 11-02-2022 09:53-0500 SaO2% (BldA) [Mass fraction] 98 % Services [facility] Work Phone: [facility] 11-02-2022 09:53-0500 Systolic blood pressure 156 mm[Hg] [facility] Work Phone: [facility] 11-02-2022 03:00-0500 Body height 157.48 cm Services [facility] Work Phone: [facility] 11-02-2022 03:00-0500 Body temperature 98.4 [degF] Services [facility] Work Phone: [facility] 11-02-2022 03:00-0500 Body weight 78 kg Services [facility] Work Phone: [facility] 10-31-2022 10:05-0500 Diastolic blood pressure 85 mm[Hg] Services [facility] Work Phone: [facility] 10-31-2022 10:05-0500 Heart rate 59 /min Services [facility] Work Phone: [facility] 10-31-2022 10:05-0500 Respiratory rate 18 /min Services [facility] Work Phone: [facility] 10-31-2022 10:05-0500 SaO2% (BldA) [Mass fraction] 98 % Services [facility] Work Phone: [facility] 10-31-2022 10:05-0500 Systolic blood pressure 137 mm[Hg] Services [facility] Work Phone: [facility] 10-31-2022 08:50-0500 Body height 157.48 cm Services [facility] Work Phone: [facility] 10-31-2022 08:50-0500 Body temperature 98.2 [degF] Services [facility] Work Phone: [facility] 10-31-2022 08:50-0500 Body weight 83.91 kg Services [facility] Work Phone: [facility] 10-29-2022 12:01-0500 Body height 157.48 cm Services [facility] Work Phone: [facility] 10-29-2022 12:01-0500 Body temperature 97.8 [degF] Services [facility] Work Phone: [facility] 10-29-2022 12:01-0500 Body weight 81 kg Services [facility] Work Phone: [facility] 10-29-2022 12:01-0500 Diastolic blood pressure 84 mm[Hg] Services [facility] Work Phone: [facility] 10-29-2022 12:01-0500 Heart rate 60 /min Services [facility] Work Phone: [facility] 10-29-2022 12:01-0500 Respiratory rate 18 /min Services [facility] Work Phone: [facility] 10-29-2022 12:01-0500 SaO2% (BldA) [Mass fraction] 99 % Services [facility] Work Phone: [facility] 10-29-2022 12:01-0500 Systolic blood pressure 109 mm[Hg] Services [facility] Work Phone: [facility] 08-22-2022 12:00-0400 Body temperature 98 [degF] Services [facility] Work Phone: [facility] 08-22-2022 12:00-0400 Diastolic blood pressure 78 mm[Hg] Services [facility] Work Phone: [facility] 08-22-2022 12:00-0400 Heart rate 80 /min Services [facility] Work Phone: [facility] 08-22-2022 12:00-0400 Respiratory rate 18 /min Services [facility] Work Phone: [facility] 08-22-2022 12:00-0400 SaO2% (BldA) [Mass fraction] 95 % Services [facility] Work Phone: [facility] 08-22-2022 12:00-0400 Systolic blood pressure 121 mm[Hg] Services [facility] Work Phone: [facility] 08-22-2022 05:50-0400 Body weight 77.5 kg Services [facility] Work Phone: [facility] 08-21-2022 11:27-0400 Body height 157.48 cm Services [facility] Work Phone: [facility] 08-20-2022 16:34-0400 Diastolic blood pressure 90 mm[Hg] Services [facility] Work Phone: [facility] 08-20-2022 16:34-0400 Heart rate 68 /min Services [facility] Work Phone: [facility] 08-20-2022 16:34-0400 Respiratory rate 20 /min Services [facility] Work Phone: [facility] 08-20-2022 16:34-0400 SaO2% (BldA) [Mass fraction] 96 % Services [facility] Work Phone: [facility] 08-20-2022 16:34-0400 Systolic blood pressure 142 mm[Hg] Services [facility] Work Phone: [facility] 08-20-2022 11:58-0400 Body height 157.48 cm Services [facility] Work Phone: [facility] 08-20-2022 11:58-0400 Body temperature 97.9 [degF] Services [facility] Work Phone: [facility] 08-20-2022 11:58-0400 Body weight 79.37 kg Services [facility] Work Phone: [facility] 08-20-2022 01:00-0400 Body temperature 97.9 [degF] Services [facility] Work Phone: [facility] 08-20-2022 01:00-0400 Diastolic blood pressure 72 mm[Hg] Services [facility] Work Phone: [facility] 08-20-2022 01:00-0400 Heart rate 53 /min Services [facility] Work Phone: [facility] 08-20-2022 01:00-0400 Respiratory rate 16 /min Services [facility] Work Phone: [facility] 08-20-2022 01:00-0400 SaO2% (BldA) [Mass fraction] 97 % Services [facility] Work Phone: [facility] 08-20-2022 01:00-0400 Systolic blood pressure 131 mm[Hg] Services [facility] Work Phone: [facility] 08-19-2022 18:57-0400 Body height 157.48 cm Services [facility] Work Phone: [facility] 08-19-2022 18:57-0400 Body weight 79.37 kg Services [facility] Work Phone: [facility] 08-19-2022 14:00-0400 Diastolic blood pressure 79 mm[Hg] Services [facility] Work Phone: [facility] 08-19-2022 14:00-0400 Heart rate 67 /min Services [facility] Work Phone: [facility] 08-19-2022 14:00-0400 Respiratory rate 20 /min Services [facility] Work Phone: [facility] 08-19-2022 14:00-0400 SaO2% (BldA) [Mass fraction] 99 % Services [facility] Work Phone: [facility] 08-19-2022 14:00-0400 Systolic blood pressure 139 mm[Hg] Services [facility] Work Phone: [facility] 08-19-2022 00:40-0400 Body height 157.48 cm Services [facility] Work Phone: [facility] 08-19-2022 00:40-0400 Body temperature 98.8 [degF] Services [facility] Work Phone: [facility] 08-19-2022 00:40-0400 Body weight 77.11 kg Services [facility] Work Phone: [facility] 08-18-2022 15:28-0400 Body temperature 97.8 [degF] Services [facility] Work Phone: [facility] 08-18-2022 15:28-0400 Diastolic blood pressure 90 mm[Hg] Services [facility] Work Phone: [facility] 08-18-2022 15:28-0400 Heart rate 54 /min Services [facility] Work Phone: [facility] 08-18-2022 15:28-0400 Respiratory rate 20 /min Services [facility] Work Phone: [facility] 08-18-2022 15:28-0400 SaO2% (BldA) [Mass fraction] 100 % Services [facility] Work Phone: [facility] 08-18-2022 15:28-0400 Systolic blood pressure 135 mm[Hg] Services [facility] Work Phone: [facility] 08-18-2022 12:26-0400 Body height 157.48 cm Services [facility] Work Phone: [facility] 08-18-2022 12:26-0400 Body weight 77.11 kg Services [facility] Work Phone: [facility] 06-09-2022 10:25-0400 Diastolic blood pressure 51 mm[Hg] Services [facility] Work Phone: [facility] 06-09-2022 10:25-0400 Heart rate 83 /min Services [facility] Work Phone: [facility] 06-09-2022 10:25-0400 Respiratory rate 20 /min Services [facility] Work Phone: [facility] 06-09-2022 10:25-0400 SaO2% (BldA) [Mass fraction] 98 % Services [employer] Work Phone: [facility] 06-09-2022 10:25-0400 Systolic blood pressure 92 mm[Hg] Services [facility] Work Phone: [facility] 06-09-2022 08:46-0400 Body height 157.48 cm Services [employer] [facility] Work Phone: [facility] 06-09-2022 08:46-0400 Body mass index (BMI) [Percentile] Per age and sex 96.2 % Services [employer] Work Phone: [facility] 06-09-2022 08:46-0400 Body mass index (BMI) [Ratio] 32 kg/m2 Services [employer] Work Phone: [facility] 06-09-2022 08:46-0400 Body temperature 97.4 [degF] Services [facility] [employer] Work Phone: [facility] 06-09-2022 08:46-0400 Body weight 79.37 kg Services [employer] Work Phone: [facility] 05-16-2022 13:52-0400 Diastolic blood pressure 96 mm[Hg] Services [employer] Work Phone: [facility] 05-16-2022 13:52-0400 Heart rate 66 /min Services [employer] Work Phone: [facility] 05-16-2022 13:52-0400 Respiratory rate 18 /min Services [employer] Work Phone: [facility] 05-16-2022 13:52-0400 SaO2% (BldA) [Mass fraction] 100 % Services [employer] Work Phone: [facility] 05-16-2022 13:52-0400 Systolic blood pressure 138 mm[Hg] Services [facility] Work Phone: [facility] 05-16-2022 11:54-0400 Body height 157.48 cm Services [employer] Work Phone: [facility] 05-16-2022 11:54-0400 Body mass index (BMI) [Percentile] Per age and sex 95.5 % Services [employer] Work Phone: [facility] 05-16-2022 11:54-0400 Body mass index (BMI) [Ratio] 31.1 kg/m2 Services [employer] Work Phone: [facility] 05-16-2022 11:54-0400 Body temperature 98.4 [degF] Services [employer] Work Phone: [facility] 05-16-2022 11:54-0400 Body weight 77.11 kg Services [employer] Work Phone: [facility] 05-15-2022 15:30-0400 Diastolic blood pressure 82 mm[Hg] Services [employer] Work Phone: [facility] 05-15-2022 15:30-0400 Heart rate 52 /min Services [employer] Work Phone: [facility] 05-15-2022 15:30-0400 Respiratory rate 14 /min Services [facility] [employer] Work Phone: [facility] 05-15-2022 15:30-0400 SaO2% (BldA) [Mass fraction] 99 % Services [employer] Work Phone: [facility] 05-15-2022 15:30-0400 Systolic blood pressure 134 mm[Hg] Services [employer] Work Phone: [facility] 05-15-2022 12:28-0400 Body height 157.48 cm Services [employer] Work Phone: [facility] 05-15-2022 12:28-0400 Body mass index (BMI) [Percentile] Per age and sex 95.5 % Services [employer] Work Phone: [facility] 05-15-2022 12:28-0400 Body mass index (BMI) [Ratio] 31 kg/m2 Services [facility] Work Phone: [facility] 05-15-2022 12:28-0400 Body temperature 98.1 [degF] Services [facility] Work Phone: [facility] 05-15-2022 12:28-0400 Body weight 77 kg Services [employer] [facility] Work Phone: [facility] 05-14-2022 22:56-0400 Body temperature 98.1 [degF] Services [facility] Work Phone: [facility] 05-14-2022 22:56-0400 Diastolic blood pressure 74 mm[Hg] Services [employer] Work Phone: [facility] 05-14-2022 22:56-0400 Heart rate 18 /min Services [employer] [facility] Work Phone: [facility] 05-14-2022 22:56-0400 Respiratory rate 18 /min Services [employer] [facility] Work Phone: [facility] 05-14-2022 22:56-0400 SaO2% (BldA) [Mass fraction] 94 % Services [employer] Work Phone: [facility] 05-14-2022 22:56-0400 Systolic blood pressure 137 mm[Hg] Services [employer] Work Phone: [facility] 05-14-2022 02:18-0400 Body height 157.48 cm Services [employer] [facility] Work Phone: [facility] 05-14-2022 02:18-0400 Body mass index (BMI) [Percentile] Per age and sex 95.5 % Services [employer] Work Phone: [facility] 05-14-2022 02:18-0400 Body mass index (BMI) [Ratio] 31.1 kg/m2 Services [employer] Work Phone: [facility] 05-14-2022 02:18-0400 Body temperature 97.9 [degF] Services [facility] Work Phone: [facility] 05-14-2022 02:18-0400 Body weight 77.11 kg Services [facility] Work Phone: [facility] 05-14-2022 02:18-0400 Diastolic blood pressure 65 mm[Hg] Services [facility] Work Phone: [facility] 05-14-2022 02:18-0400 Heart rate 54 /min Services [facility] Work Phone: [facility] 05-14-2022 02:18-0400 Respiratory rate 18 /min Services [employer] [facility] Work Phone: [facility] 05-14-2022 02:18-0400 SaO2% (BldA) [Mass fraction] 98 % Services [employer] Work Phone: [facility] 05-14-2022 02:18-0400 Systolic blood pressure 133 mm[Hg] Services [employer] [facility] Work Phone: [facility] 05-13-2022 12:09-0400 Heart rate 72 /min Services [employer] [facility] Work Phone: [facility] 05-13-2022 12:09-0400 Respiratory rate 18 /min Services [employer] Work Phone: [facility] 05-13-2022 12:09-0400 SaO2% (BldA) [Mass fraction] 98 % Services [employer] [facility] Work Phone: [facility] 05-13-2022 10:32-0400 Body height 156.21 cm Services [employer] [facility] Work Phone: [facility] 05-13-2022 10:32-0400 Body mass index (BMI) [Percentile] Per age and sex 95.9 % Services [employer] Work Phone: [facility] 05-13-2022 10:32-0400 Body mass index (BMI) [Ratio] 31.6 kg/m2 Services [employer] Work Phone: [facility] 05-13-2022 10:32-0400 Body temperature 98.1 [degF] Services [facility] Work Phone: [facility] 05-13-2022 10:32-0400 Body weight 77.11 kg Services [facility] Work Phone: [facility] 05-13-2022 10:32-0400 Diastolic blood pressure 87 mm[Hg] Services [facility] Work Phone: [facility] 05-13-2022 10:32-0400 Systolic blood pressure 145 mm[Hg] Services [facility] Work Phone: [facility] Encounters Encounter Date Encounter Type Care Provider Facility Start: 05-06-2025 End: 05-06-2025 ambulatory Drew Steinberg [facility] Work Phone: Start: 05-06-2025 End: 05-06-2025 Departed Referred Jasmeet Dahl MD Work Phone: [facility] Start: 05-04-2025 End: 05-04-2025 ambulatory Jasmeet Dahl [facility] Work Phone: Start: 05-04-2025 End: 05-04-2025 Departed Referred Jasmeet Dahl MD Work Phone: [facility] Start: 01-23-2025 End: 01-23-2025 ambulatory Services [facility] Work Phone: [facility] Work Phone: Start: 01-23-2025 End: 01-23-2025 Departed Referred Services [facility] Work Phone: [facility] Start: 01-16-2025 End: 01-16-2025 Emergency department patient visit August Bermudez [facility] Start: 10-28-2024 End: 10-29-2024 Emergency department patient visit Services [facility] Work Phone: [facility] Work Phone: Start: 10-28-2024 Non-patient / Non-visit Servic es [facility] Work Phone: [facility] Work Phone: Start: 08-03-2024 End: 08-04-2024 Emergency department patient visit Services [facility] Work Phone: [facility] Work Phone: Start: 08-01-2024 End: 08-01-2024 Emergency department patient visit MODESTA ARCHIBALD Facility:[facility] Start: 07-30-2024 End: 07-30-2024 Emergency department patient visit Cresencio Abel Facility:[facility] Start: 03-18-2024 End: 03-19-2024 Emergency department patient visit Services [facility] Work Phone: [facility] Work Phone: Start: 03-15-2024 End: 03-15-2024 Emergency department patient visit Beliaaries Carbone Ebony [facility] Start: 03-13-2024 End: 03-13-2024 Emergency department patient visit Femi Roman [facility] Start: 07-31-2023 End: 07-31-2023 Emergency department patient visit Services [facility] Work Phone: [facility] Work Phone: Start: 07-14-2023 End: 07-14-2023 ambulatory Services [facility] Work Phone: [facility] Work Phone: Start: 07-14-2023 End: 07-14-2023 Patient encounter procedure Services [facility] Work Phone: [facility] Start: 06-16-2023 End: 06-16-2023 ambulatory Services [facility] Work Phone: [facility] Work Phone: Start: 06-16-2023 End: 06-16-2023 Patient encounter procedure Services Family [employer] Work Phone: [facility] Start: 06-02-2023 Postop follow up vis it related to original px Colten Wesleyxa [facility] Start: 06-02-2023 End: 06-02-2023 ambulatory Services [facility] Work Phone: [employer] Other Start: 06-02-2023 End: 06-02-2023 Patient encounter procedure Services [employer] Work Phone: [facility] Start: 05-25-2023 End: 05-25-2023 Admission to same day surgery center Services [employer] Work Phone: [facility] Start: 05-25-2023 End: 05-25-2023 ambulatory Services [employer] Work Phone: [facility] Work Phone: Start: 05-24-2023 End: 05-24-2023 ambulatory Colten Olexa Other [employer] Other Start: 05-24-2023 Telephone encounter Colten Lupilloxa [facility] Start: 05-23-2023 End: 05-23-2023 ambulatory Colten Olexa Other [employer] Other Start: 05-23-2023 Encounter for other preprocedural examination Colten Wesleyxa [facility] Start: 05-23-2023 Office outpatient ne w 45 minutes Colten Wesleyxa [facility] Start: 03-15-2023 End: 03-15-2023 Departed Referred Services [facility] Work Phone: [facility] Start: 01-26-2023 End: 01-26-[address] DOCTOR MISC Facility:[facility] Start: 01-06-2023 End: 01-07-2023 Evaluation and management of inpatient Services [facility] Work Phone: [facility] Work Phone: Start: 01-06-2023 observation encounter Services [facility] Work Phone: [facility] Work Phone: Start: 01-06-2023 End: 01-07-2023 Services [facility] Work Phone: [facility] [place] [facility] Work Phone: Start: 01-02-2023 End: 01-02-2023 Services [facility] Work Phone: [facility] Work Phone: Start: 01-01-2023 End: 01-01-2023 ambulatory [facility] . Facility:[facility]1 Start: 12-31-2022 End: 12-31-2022 Emergency department patient visit Services [facility] Work Phone: [facility] Work Phone: Start: 12-31-2022 End: 12-31-2022 Services [facility] Work Phone: [facility] Work Phone: Start: 11-09-2022 End: 11-09-2022 Emergency department patient visit Services [facility] Work Phone: [facility] Work Phone: Start: 11-09-2022 End: 11-09-2022 Services [facility] Work Phone: [facility] Start: 11-07-2022 End: 11-07-2022 Emergency department patient visit Services [facility] Work Phone: [facility] Work Phone: Start: 11-07-2022 End: 11-07-2022 Services [facility] Work Phone: [facility] Start: 11-02-2022 End: 11-02-2022 Emergency department patient visit Services [facility] Work Phone: [facility] Work Phone: Start: 11-02-2022 End: 11-02-2022 Services [facility] Work Phone: [facility] Start: 10-31-2022 End: 10-31-2022 Emergency department patient visit Services [facility] Work Phone: [facility] Work Phone: Start: 10-31-2022 End: 10-31-2022 Services [facility] Work Phone: [facility] Start: 10-29-2022 End: 10-29-2022 Emergency department patient visit Services [facility] Work Phone: [facility] Start: 10-29-2022 End: 10-29-2022 Services [facility] Work Phone: [facility] Start: 08-27-2022 End: 08-27-2022 Departed Referred Services [facility] Work Phone: [facility] Start: 08-27-2022 End: 08-27-2022 Services [facility] Work Phone: [facility] Start: 08-20-2022 End: 08-22-2022 Evaluation and management of inpatient Services [facility] Work Phone: [facility] [place] [facility] Start: 08-20-2022 End: 08-22-2022 Services [facility] Work Phone: [facility] [place] [facility] Start: 08-19-2022 End: 08-20-2022 Emergency department patient visit Services [facility] Work Phone: [facility] Start: 08-19-2022 End: 08-20-2022 Services [facility] Work Phone: [facility] Start: 08-19-2022 End: 08-19-2022 Emergency department patient visit Services [employer] Work Phone: [facility]-Emergency Room Start: 08-19-2022 End: 08-19-2022 Services [facility] Work Phone: [facility] Start: 08-18-2022 End: 08-18-2022 Emergency department patient visit Services [employer] Work Phone: [facility] Start: 08-18-2022 End: 08-18-2022 Services [facility] Work Phone: [facility]Emergency Room Start: 06-25-2022 End: 06-25-2022 Departed Referred Services [employer] Work Phone: [facility] Start: 06-09-2022 End: 06-09-2022 Admission to same day surgery center Services [employer] Work Phone: [facility]-Digestive Health Start: 06-07-2022 End: 06-07-2022 Patient encounter procedure Services [employer] Work Phone: [facility]-Pre-Surgical Testing Start: 05-26-2022 End: 05-26-2022 Departed Referred Services [employer] Work Phone: [facility] Start: 05-16-2022 ambulatory Luana Mak RN NURSE LABORATORY TESTER Comment on above: Abdominal Pain Start: 05-16-2022 End: 05-16-2022 Emergency department patient visit Services [employer] Work Phone: [facility]-Emergency Room Start: 05-15-2022 End: 05-15-2022 Emergency department patient visit Services [employer] Work Phone: [facility]-Emergency Room Start: 05-14-2022 End: 05-14-2022 Emergency department patient visit Services [facility] Work Phone: [facility]Emergency Room Start: 05-14-2022 End: 05-14-2022 Emergency department patient visit Services [facility] Work Phone: [facility] Start: 05-13-2022 End: 05-13-2022 Emergency department patient visit Services [employer] [facility] Work Phone: [facility]-Emergency Room Start: 06-23-2018 Evaluation and manag [...] 08-25-2017 Patient encounter DALI B SPLAWSKI Fa cility:[facility] Start: 08-09-2017 End: 08-24-2017 Evaluation and management of inpatient AIMEE ALEMAN Facility:[facility] Procedures Date Procedure Procedure Detail Performing Clinician Start: 05-04-2025 Urine culture Jasmeet Dahl MD Work Phone: Start: 10-28-2024 Urine culture Services [employer] Work Phone: Start: 07-14-2023 X-ray of right knee Services [employer] Work Phone: Start: 06-16-2023 X-ray of right knee Services [employer] Work Phone: Start: 06-02-2023 X-ray of right knee Services [employer] Work Phone: Start: 05-25-2023 Arthroscopy of knee Services [facility] Phone: Start: 03-15-2023 Respiratory Panel (PCR) Services [facility] Phone: Start: 01-06-2023 Computed tomography of abdomen and pelvis with contrast Services [facility] [employer] Phone: Start: 01-06-2023 Plain chest X-ray Services [facility] [employer] Phone: Start: 01-06-2023 Pelvis X-ray Services [facility] [employer] Phone: Start: 01-02-2023 Urine culture Services [facility] [employer] Phone: Start: 12-31-2022 Influenza A and B virus antigen assay Services [facility] [employer] Phone: Start: 12-31-2022 Urine culture Services [facility] [employer] Phone: Start: 11-02-2022 Urine culture Services [facility] [employer] Phone: Start: 10-31-2022 Urine culture Services [facility] [employer] Phone: Start: 08-19-2022 Computed tomography of abdomen and pelvis with contrast Services [facility] Phone: Start: 06-09-2022 Esophagogastroduodenoscopy Services [facility] Phone: Start: 05-16-2022 Computed tomography of abdomen and pelvis with contrast Services [facility] Phone: Start: 08-21-2017 Introduction of Nutritional Substance [...] Services [facility] Work Phone: Services [facility] Work Phone: Plan of Treatment Date Care Activity Detail Author Start: 05-06-2025 Bacteria identified in Urine by Culture Urine Culture [facility] Start: 05-06-2025 Urine culture [facility] Start: 05-04-2025 Bacteria identified in Urine by Culture Urine Culture [facility] Start: 05-04-2025 Urine culture [facility] Start: 01-23-2025 Bacteria identified in Urine by Culture Urine Culture [facility] Start: 01-23-2025 Urine culture [facility] Start: 08-03-2024 [facility] Start: 03-18-2024 [facility] Start: 05-25-2023 [facility] Start: 05-25-2023 [facility] Start: 01-08-2023 Blood chemistry [facility] Start: 01-08-2023 [facility] Start: 01-07-2023 Blood chemistry [facility] Start: 01-07-2023 End: 01-07-2023 [facility] Start: 01-06-2023 Patient referral to dietitian [facility] Start: 01-06-2023 Hospital admission [facility] Start: 01-06-2023 [facility] Start: 01-06-2023 Computed tomography of abdomen and pelvis with contrast [facility] Start: 01-06-2023 CT Abdomen and Pelvis W contrast IV [facility] Start: 01-06-2023 End: 01-06-2023 [facility] Start: 01-06-2023 Urine culture [facility] Start: 12-31-2022 End: 12-31-2022 [facility] Start: 11-09-2022 [facility] Start: 10-29-2022 [facility] Start: 08-22-2022 [facility] Start: 08-22-2022 [facility] Work Phone: Start: 08-20-2022 Hospital admission [facility] Start: 08-20-2022 [facility] Work Phone: Start: 08-20-2022 [facility] Work Phone: Start: 08-19-2022 Computed tomography of abdomen and pelvis with contrast CT abdomen pelvis w con [facility] Start: 08-19-2022 CT Abdomen and Pelvis W contrast IV [facility] Work Phone: Start: 08-19-2022 [facility] Work Phone: Start: 07-29-2022 Influenza vaccination INFLUENZA (Season Ended) [facility] Start: 06-09-2022 [facility] Work Phone: Start: 2022 CHLAMYDIA SCREENING (18-24) CHLAMYDIA SCREENING (18-24) [facility] Start: 2022 GC (GONORRHEA) SCREENING (18-24) GC (GONORRHEA) SCREENING (18-24) [facility] Start: 2022 HEPATITIS C SCREENING HEPATITIS C SCREENING [facility] Start: 2022 HIV SCREENING HIV SCREENING [facility] Start: 2020 MENINGOCOCCAL CONJUGATE (1 - 2-dose series) MENINGOCOCCAL CONJUGATE (1 - 2-dose series) [facility] Start: 2018 PEDS TO ADULT TRANSITION ANNUAL ASSESSMENT PEDS TO ADULT TRANSITION ANNUAL ASSESSMENT [facility] Start: 2016 Adult depression screening assessment DEPRESSION SCREENING [facility] Start: 2016 PEDS TO ADULT TRANSITION INITIAL DISCUSSION PEDS TO ADULT TRANSITION INITIAL DISCUSSION [facility] Start: 2015 HPV VACCINE (1 - 2-dose series) HPV VACCINE (1 - 2-dose series) [facility] Start: 2014 MENINGOCOCCAL B: Consider based on risk (1 of 2 - Risk Bexsero 2-dose series) MENINGOCOCCAL B: Consider based on risk (1 of 2 - Risk Bexsero 2-dose series) [facility] Start: 2011 Urine microalbumin profile DTAP,TDAP,TD (1 - Tdap) [facility] Start: 2009 COVID-19 VACCINE (#1) [facility] Amphetamines [Presen ce] in Urine [facility] Work Phone: Bacteria identified in Blood by Culture [facility] Bacteria identified in Urine by Culture [facility] Bacteria identified in Urine by Culture [facility] Barbiturates [Presen ce] in Urine [facility] Work Phone: Basophils [#/volume] in Blood by Automated count [facility] Basophils/100 leukoc ytes in Blood by Automated count [facility] Benzodiazepines [Pre sence] in Urine [facility] Work Phone: Bilirubin measurement, urine [facility] Work Phone: Cannabinoids [Presen ce] in Urine by Screen method [facility] Work Phone: Choriogonadotropin ( test) [Presence] in Urine [facility] Work Phone: Cocaine [Presence] in Urine [facility] Work Phone: Color of Urine [facility] Work Phone: Detection of hemoglobin [facility] Work Phone: Eosinophils/100 leuk ocytes in Blood by Automated count [facility] Erythrocyte distribu tion width [Ratio] by Automated count [facility] Erythrocytes [#/volu me] in Blood [facility] Glucose [Mass/volume ] in Urine by Test strip [facility] Work Phone: Hematocrit [Volume F raction] of Blood [facility] Hemoglobin [Mass/vol ume] in Blood [facility] Homogenous nuclear A b pattern [Titer] in Serum [facility] Work Phone: Leukocytes [#/volume ] corrected for nucleated erythrocytes in Blood by Automated coun [facility] Leukocytes [#/volume ] in Blood [facility] Lymphocytes [#/volum e] in Blood by Automated count [facility] Lymphocytes/100 leuk ocytes in Blood by Automated count [facility] MCH [Entitic mass] b y Automated count [facility] MCHC [Mass/volume] b y Automated count [facility] MCV [Entitic volume] by Automated count [facility] Measurement of keton es in urine using dipstick [facility] Work Phone: Monocytes [#/volume] in Blood by Automated count [facility] Monocytes/100 leukoc ytes in Blood by Automated count [facility] Neutrophils [#/volum e] in Blood by Automated count [facility] Neutrophils/100 leuk ocytes in Blood by Automated count [facility] Nuclear Ab [Titer] in Serum [facility] Work Phone: Nucleated erythrocyt es [Presence] in Blood by Automated count [facility] Patient Education [facility] Work Phone: Patient referral [facility] Work Phone: Phencyclidine [Prese nce] in Urine [facility] Work Phone: Platelet mean volume [Entitic volume] in Blood by Automated count [facility] Platelets [#/volume] in Blood [facility] Protein measurement, urine [facility] Work Phone: SARS-CoV-2 (COVID-19 ) N gene [Presence] in Respiratory specimen by JANAK with probe detection [facility] Work Phone: Urinalysis, specific gravity measurement [facility] Work Phone: Urine culture Urine Culture [facility] Urine culture [facility] Urine dipstick for nitrite [facility] Work Phone: Urine dipstick for s pecific gravity [facility] Work Phone: Urine pH test [facility] Work Phone: Urobilinogen concent ration, test strip measurement [facility] Work Phone: [facility] Immunizations Immunization Date Immunization Notes Care Provider Susan alvarado 01-17-2018 tetanus toxoid, redu yoni diphtheria toxoid, and acellular pertussis vaccine, adsorbed Services [facility] Work Phone: [facility] 01-07-2017 Human Papillomavirus 9-valent vaccine [employer] [employer] Other [employer] [facility] [employer] Other 01-07-2017 HPV, unspecified formulation Services [facility] Work Phone: [facility] 09-06-2016 influenza, injectabl e, quadrivalent, preservative free [employer] Other [facility] 09-06-2016 Human Papillomavirus 9-valent vaccine [employer] Other [employer] Other 09-06-2016 HPV, unspecified formulation Services [facility] Work Phone: [facility] 07-01-2016 human papilloma viru s vaccine, quadrivalent [employer] Other [facility] 07-01-2016 meningococcal polysaccharide (groups A, C, Y and W-135) diphtheria toxoid conjugate vaccine (MCV4P) [employer] Other [facility] 07-01-2016 tetanus toxoid, redu yoni diphtheria toxoid, and acellular pertussis vaccine, adsorbed [employer] Other [facility] 09-01-2015 influenza, injectabl e, quadrivalent, preservative free [employer] Other [facility] 08-19-2014 influenza, injectabl e, quadrivalent, contains preservative Services [facility] Work Phone: [facility] 08-19-2014 influenza, injectabl e, quadrivalent, preservative free [employer] Other [employer] Other 08-17-2013 influenza, seasonal, injectable, preservative free [employer] Other [facility] Payers Date Payer Category Payer Self-pay 2019 Medicaid [employer] [id number] 2019-Present [phone] [address] [place] [address] Medicaid [id number] 2004 Unknown [id number] 2004 Unknown [id number] 2004 Unknown [id number] [id number] 2004 Unknown [id number] [id number] 2004 Unknown [id number] [id number] 2004 Unknown [id number] [id number] 2004 Unknown [id number] [id number] 2004 Unknown [id number] [id number] 1969 Unknown [id number] [id number] 1969 Unknown [id number] 1959 Medicaid [id number] Medicaid [id number] Medicaid [id number] Unknown [id number] Unknown [id number] Unknown [id number] Unknown [id number] Unknown [id number] Unknown [id number] Unknown [id number] [id number] Unknown [id number] [id number] Unknown [id number] Unknown [id number] Social History Date Type Detail Facility Start: 10-09-2021 End: 03-13-2024 Tobacco smoking status ORIS Never smoked tobacco [facility] Start: 10-09-2021 Tobacco use and exposure Smokeless tobacco non-user [facility] Start: 10-09-2021 Alcohol intake Lifetime non-d isael (finding) [facility] Start: 10-09-2021 History SDOH Alcohol Frequency 1 [facility] Start: 2004 Sex Assigned At Not on file C [facility] Start: 06-09-2022 End: 08-03-2024 Tobacco smoking status ORIS Smoker (finding) [facility] Start: 2004 Sex Assigned At Female F [facility] Start: 08-18-2022 End: 10-28-2024 Tobacco smoking status ORIS Current some day smoker [facility] Start: 01-06-2023 Tobacco smoking status NHIS Ex-smoker (finding) [facility] Sex Assigned At [facility] Tobacco smoking status Never [facility] Start: 01-24-2025 End: 05-07-2025 Sex Female (finding) [facility] NEGATED: Highlighted row [facility] Medical Equipment Procedure Code Equipment Code Equipment Origin al Text Equipment Identifier Dates Arthroscopy, knee Tendon/ligamen t bone anchor, non-bioabsorbable [id number] FDA Start: 05-25-2023 Arthroscopy, knee Soft-tissue/me sh anchor, non-bioabsorbable [id number] FDA Start: 05-25-2023 Arthroscopy, knee Tendon/ligamen t bone anchor, bioabsorbable [id number] FDA Start: 05-25-2023 Goals Date Patient Goal Desired Activity /State Functional Status Date Assessment Result Facility 01-16-2025 Functional Status N/A [facility] 07-30-2024 Functional Status N/A [facility] 03-15-2024 Functional Status N/A [facility] 03-13-2024 Functional Status N/A [facility] 01-07-2023 Functional status Patient at Baseline [facility] Work Phone: 01-06-2023 Functional status Patient at Baseline [facility] Work Phone: 08-22-2022 Functional status Patient at Baseline [facility] Work Phone: Mental Status Date Assessment Result Facility 01-07-2023 Cognitive function Patient at Baseline [facility] Work Phone: 01-06-2023 Cognitive function Patient at Baseline [facility] Work Phone: 08-22-2022 Cognitive function Patient at Baseline [facility] Work Phone: Clinical Notes 09-28-2015 [...] your activities and whether you should start firge-ec-nnskln exercises for your injury. Ice Ice your [...] provider. Document Revised: 2021 Document Reviewed: 08/04/2018 [facility] Patient Education 2020 [facility] [employer] 01/16/2025 20:36:16 Contusion Contusion A contusion [...] sitting or lying down. General instructions Take qyuc-nkw-jtwomaj and prescription medicines only as told by [...] provider. Document Revised: 05/02/2023 Document Reviewed: 05/02/2023 [facility] Patient Education 2023 [facility] [employer] 01/16/2025 20:36:16 Fall Prevention in the Home, Adult, Zumh-ku-Rgmv Fall Prevention in the Home, Adult Falls [...] Keep items that you use often in wknb-fn-ujsoj places. Lower the shelves around your home [...] of the way. Do not use floor tristanian or wax that makes floors slippery. What [...] more information Centers for Disease Control and PreventionANASTACIO: cdc.gov National [place] on Aging: jacob.nih.gov National [place] on Aging: jacob.nih.gov Contact a doctor if: [...] provider. Document Revised: 07/18/2023 Document Reviewed: 07/18/2023 [facility] Patient Education 2023 [employer] Follow Up Care 01/16/2025 17:51:58 With:MODESTA CHAND Address: [address] [place] [id number] [phone] Business (1) When:2025 20:14:58 Comments:Call Dr for [...] Keep items that you use often in wler-wd-picys places. Lower the shelves around your home [...] the way. ??? Do not use floor tristanian or wax that makes floors slippery. What [...] ??? Centers for Disease Control and Prevention, [place]: cdc.gov ??? National [place] on Aging: jacob.nih.gov ??? National [place] on Aging: jacob.nih.gov Contact a doctor if: [...] will go away. (more content not included)... [facility] 08-01-2024 Note ED Patient Education Note Gastroenterology [...] such as yogurt. General instructions ? Take qbkp-lmo-sfeirce and prescription medicines only as told by [...] provider. Document Revised: 07/29/2022 Document Reviewed: 07/29/2022 [facility] Patient Education ? 2023 [facility] [employer] Nausea and Vomiting, Adult Nausea is [...] has water adde (more content not included)... [facility] 07-31-2024 Hospital Discharg e instructions [...] water added (diluted fruit juice). Eat bland, wafh-ha-acsksc foods in small amounts as you are able. These foods include bananas, applesauce, rice, lean meats, toast, and crackers. Avoid fluids that contain a lot of sugar or caffeine, such as energy drinks, sports drinks, and soda. Avoid alcohol. Avoid spicy or fatty foods. General instructions Take gkuf-zzo-gydgvbu and prescription medicines only as told by your health care provider. Drink enough fluid to keep your urine pale yellow. Wash your hands often using soap and water for at least 20 seconds. If soap and water are not available, use hand transfer and pumphouse operator chief. Make sure that everyone in your household [...] eating and drinking to prevent dehydration. Take pzcx-kgy-wrodckm and prescription medicines only as told by [...] provider. Document Revised: 05/21/2022 Document Reviewed: 05/21/2022 [facility] Patient Education 2023 [employer] Follow Up Care 07/30/2024 19:27:35 With:FAMILIA CHAND Address: [facility] [place] [phone] Business (1) When:08/02/2024 [facility] [...] added (diluted fruit juice). ? Eat bland, reps-sp-cnjkxu foods in small amounts as you are able. These foods include bananas, applesauce, rice, lean meats, toast, and crackers. ? Avoid fluids that contain a lot of sugar or caffeine, such as energy drinks, sports drinks, and soda. ? Avoid alcohol. ? Avoid spicy or fatty foods. General instructions ? Take pate-mka-muqtczw and prescription medicines only as told by your health care provider. ? Drink enough fluid to keep your urine pale yellow. ? Wash your hands often using soap and water for at least 20 seconds. If soap and water are not available, use hand transfer and pumphouse operator chief. ? Make sure that everyone in your [...] and drinking to prevent dehydration. ? Take uwuo-iby-njphciy and prescription medicines only as told by [...] provider. Document Revised: 05/21/2022 Document Reviewed: 05/21/2022 [facility] Patient Education ? 2023 [employer]. [facility] 07-30-2024 Evaluation + Plan note Extrac venkata from: Title:ED Note Author:Dustin Villalobos DORossy Date :07/30/24 AP (abdominal pain) (R10.9: Unspecified [...] Nausea/Vomiting, # 16 tab(s), Refills(s) 0, Pharmacy: [facility]/pharmacy #[id number], 157, cm, 07/30/24 19:37:00 EDT, Height/Length Dosing, 96.1, kg, 07/30/24 19:37:00 EDT, Weight Dosing promethazine, 12.5 mg = 1 tab(s), Oral, q8hr, PRN as needed for nausea/vomiting, second line, # 10 tab(s), Refills(s) 0, Pharmacy: [facility]/pharmacy #[id number], 157, cm, 07/30/24 19:37:00 EDT, Height/Length Dosing, 96.1, kg, 07/30/24 19:37:00 EDT, Weight Dosing promethazine, 12.5 mg = 1 supp, Rectal, q8hr, PRN as needed for nausea/vomiting, 3rd line, # 6 EA, Refills(s) 0, Pharmacy: [facility]/pharmacy #[id number], 157, cm, 07/30/24 19:37:00 [...] careprovider. Do not use recreational drugs. Take nckt-uht-fjdvhvq and prescription medicines only as told by [...] provider. Document Revised: 06/08/2022 Document Reviewed: 06/08/2022 [facility] Patient Education 2022 [employer]. 03/15/2024 13:49:41 Nausea and Vomiting, Adult Nausea [...] water added (diluted fruit juice). Eat bland, cowk-co-dgoftw foods in small amounts as you are able. These foods include bananas, applesauce, rice, lean meats, toast, and crackers. Avoid fluids that contain a lot of sugar or caffeine, such as energy drinks, sports drinks, and soda. Avoid alcohol. Avoid spicy or fatty foods. General instructions Take onnx-ikz-zkkszip and prescription medicines only as told by your health care provider. Drink enough fluid to keep your urine pale yellow. Wash your hands often using soap and water for at least 20 seconds. If soap and water are not available, use hand transfer and pumphouse operator chief. Make sure that everyone in your household [...] eating and drinking to prevent dehydration. Take vlfv-fzr-okrqqst and prescription medicines only as told by [...] provider. Document Revised: 05/21/2022 Document Reviewed: 05/21/2022 [facility] Patient Education 2022 [employer]. Follow Up Care 03/15/2024 10:34:05 With:Kirk Serrano [...] Education 03/13/2024 22:27:59 Nausea and Vomiting, Adult, Lcns-dw-Qduf Nausea and Vomiting, Adult Nausea is feeling [...] fruit juice). ?Low-calorie sports drinks. Eat bland, flzx-zb-wsocma foods in small amounts as you are able, such as: ?Bananas. ?Applesauce. ?Rice. ?Low-fat (lean) meats. ?Cupertino. ?Crackers. Avoid drinking fluids that have a lot of sugar or caffeine in them. This includes energy drinks, sports drinks, and soda. Avoid alcohol. Avoid spicy or fatty foods. General instructions Take zfip-lbj-kxwazne and prescription medicines only as told by your doctor. Drink enough fluid to keep your pee (urine) pale yellow. Wash your hands often with soap and water for at least 20 seconds. If you cannot use soap and water, use hand transfer and pumphouse operator chief. Make sure that everyone in your home [...] your doctor about eating and drinking. Take rfcm-fei-yutqofu and prescription medicines only as told by your doctor. Contact your doctor if your symptoms get worse or you have new symptoms. Keep all follow-up visits. This information is not intended to replace advice given to you by your health care provider. Make sure you discuss any questions you have with your health care provider. Document Revised: 05/21/2022 Document Reviewed: 05/21/2022 [facility] Patient Education 2022 [employer]. 03/13/2024 22:27:59 Muscle Strain, Uuzg-zk-Pemz Muscle Strain A muscle strain, or pulled [...] is not too tight. General instructions Take shlv-xcw-pozgtoi and prescription medicines only as told by [...] provider. Document Revised: 02/01/2022 Document Reviewed: 02/01/2022 [facility] Patient Education 2022 [employer]. Follow Up Care 03/13/2024 17:33:30 With:MODESTA ARCIHBALD Address: [address] [place] [address] [phone] Business (1) When:03/16/2024 Comments:You can use the [...] for 3 day(s), 7 tab(s), Refill(s) 0, [facility]/pharmacy #[id number], 160, cm, 03/13/24 17:38:00 [...] day(s), # 9 tab(s), Refills(s) 0, Pharmacy: [facility]/pharmacy #[id number], 160, cm, 03/13/24 17:38:00 EDT, Height/Length Dosing, 95.5, kg, 03/13/24 17:38:00 EDT, Weight Dosing morphine, 4 mg = 1 mL, Injection, IV Push, Once, Stop date 03/13/24 19:50:00 EDT, STAT, Start date 03/13/24 19:50:00 EDT, 03/13/24 19:50:00 EDT naproxen, 500 mg = 1 tab(s), Oral, BID, PRN for pain, # 20 tab(s), Refills(s) 0, Pharmacy: [facility]/pharmacy #[id number], 160, cm, 03/13/24 17:38:00 EDT, Height/Length Dosing, 95.5, kg, 03/13/24 17:38:00 EDT, Weight Dosing orphenadrine, 60 mg = 2 mL, Injection, IV Push, Once, Stop date 03/13/24 20:27:00 EDT, STAT, Start date 03/13/24 20:27:00 EDT, 03/13/24 20:27:00 EDT promethazine, 25 mg = 1 supp, Rectal, q6hr, PRN Nausea/Vomiting, # 6 EA, Refills(s) 0, Pharmacy: [facility]/pharmacy #[id number], 160, cm, 03/13/24 17:38:00 [...] routine healing, subsequent encounter (ICD-10 - S82.141D) 06 Chidi, 2023 Other specified postprocedural states (ICD-10 - Z98.890) [employer] Other 06-27-2023 Evaluation note* Encounter Date Diagnosis Assessment Notes Treatment Notes Treatment Clinical Notes Apr, Other specified postprocedural states (ICD-10 - Z98.890) [employer] Other 06-26-2023 Evaluation note* Encounter Date Diagnosis [...] pain for many months and potentially cause long distance operator pain and stiffness. We have discussed the many potential complications of surgery including respiratory, cardiac, and patient positioning during anesthesia. The risks of DVT, scarring, intermediate pain, non union, hardware failure, development of [...] S82.111A) Apr, Pre-op exam (ICD-10 - Z01.818) [employer] Other 02-10-2023 History and physical note Author Eliana Bautista [facility] January 07, 2023 2:11am Note Date/Time January 06, 2023 5 :30pm [facility] [address] [place] [address] Hospitalist H&P Signed Patient: Pili Parikh MR#: [id number] : 2005 Acct:[id number] Age/Sex: 17 / F Adm Date: 3 Loc: Room: [address] [place] [address] Type: ADM INOo Attending Dr: Eliana Bautista MD Copies to: [facility] FRANKY Starkey MD~ HPI DATE OF EXAMINATION: [...] unless noted in the HPI or below [facility] Attestation Statement: The following information was validated [...] promethazine 25 mg rectal suppository 25 mg WA Q6H PRN Nausea #10 supp 01/02/23 [Rx [...] % (Auto) 19.9 % (.) 01/06/23 14:20 Ozark % (Auto) 7.4 % (.) 01/06/23 14:20 Eos % (Auto) 2.3 % (.) 01/06/23 14:20 Baso % (Auto) 0.3 % (.) 01/06/23 14:20 Nucleat RBC Rel Count 0.1 /100 WBC (0-0.5) 01/06/23 14:20 Neut # (Auto) 12.4 x10E3/uL (1.2-7.7) H 01/06/23 14:20 Lymph # (Auto) 3.5 x10E3/uL (1.20-4.8) 01/06/23 14:20 Ozark # (Auto) 1.3 x10E3/uL (0.1-1.00) H 01/06/23 [...] pH 6.5 (5.0-9.0) 01/06/23 16:10 Ur Specific Samaria 1.027 (1.001-1.030) 01/06/23 16:10 Urine Protein 100 [...] Bautista MD Documented By: Anette Stout APRN 01/06/231654 Signed By: <Electronically signed by FRANKY Stout> 01/06/231816 <Electronically signed by Eliana Bautista MD> 01/07/23 021 [facility] Work Phone: 1(739) 346-200309-24-2022 Progress note Author Gregorio Carey [facility] August 21, 2022 5:01pm Note Date/Time August 21, 2022 5:01pm [facility] [address] [place] [address] Hospitalist Progress Note Signed Patient: Pili Parikh MR#: [id number] : 2005 Acct:[id number] Age/Sex: 17 / F Adm Date: 2 Loc: 3T Room: [address] [place] [address] Type: ADM IN Attending Dr: Gregorio Carey [...] alot of discomfort. She recalls that the drill setup operator told her that in warm water against [...] 16 145/95 96 Room Air 08/21/22 07:59 09/24/22 12:00 08/21/22 12:00 08/21/22 12:00 08/21/22 12:00 [...] 1 Gm/10 Ml Udc PO 08/22/23 06:59 TID.AC.[facility] A&P - Hospitalist Assessment/Plan (1) Intractable [...] signed by Gregorio Carey DO> 08/21/22 1701 [facility] Work Phone: 1(726) 757-683809-23-2022 History and physical note Author Gregorio Carey [facility] August 20, 2022 8:17pm Note Date/Time August 20, 2022 8:17pm [facility] [address] [place] [address] Hospitalist H&P Signed Patient: Pili Parikh MR#: [id number] : 2005 Acct:[id number] Age/Sex: 17 / F Adm Date: 2 Loc: Room: [address] [place] [address] Type: ADM IN Attending Dr: Gregorio Carey DO Copies to: [facility] Gregorio Carey DO~ HPI DATE OF [...] % (Auto) 11.5 % (.) 08/20/22 16:21 Ozark % (Auto) 3.7 % (.) 08/20/22 16:21 Eos % (Auto) 0.3 % (.) 08/20/22 16:21 Baso % (Auto) 0.4 % (.) 08/20/22 16:21 Neut # (Auto) 9.2 x10E3/uL (1.2-7.7) H 08/20/22 16:21 Lymph # (Auto) 1.3 x10E3/uL (1.20-4.8) 08/20/22 16:21 Ozark # (Auto) 0.4 x10E3/uL (0.1-1.00) 08/20/22 16:21 [...] <Electronically signed by Gregorio Carey DO> 08/20/222016 [facility] Work Phone: [phone]) 669-291606-19-2022 Miscellaneous Notes* Telephone Encounter - Luana Mak [...] if she can find a way to [facility], she will go there. Reason for Disposition Chest pain [1] Chest pain lasts > 5 minutes AND [2] described as crushing, pressure-like, or heavy Protocols used: ABDOMINAL PAIN - [id number], CHEST [id number] [facility]21 NoteHNO ID: [id number] Author: Rolando Wooten MD Service: ? Author [...] completed when applicable. PROCEDURE NOTE: IANDD right EXECUTIVE PILOT Risks, benefits, personnel and alternatives were explained. The patient wished to proceed. S/he was re-identified and a time out obtained. PROCEDURE drainage right EXECUTIVE PILOT PREOPERATIVE DIAGNOSIS: right peritonsillar abscess POSTOPERATIVE DIAGNOSIS tonsillitis without pus in right peritonsillar area INDICATIONS: chronic right throat pain, worsening, concern for right EXECUTIVE PILOT at outside facility on scan . Drainage [...] there were no complication. MD Rolando Cherry, [facility]11-12-2021 NoteHNO ID: [id number] Author: Rolando Wooten MD Service: ? Author Type: Physician Type: Progress Notes Filed: 11/13/2021 1:09 AM Note Text: [facility] Consult This consult was requested by [...] Today she has (more content not included)...[facility]11-01-2015 History general Narrative - Reported* Type Description Date Medical History wheezing in rosin barrel filler Medical History intermittent asthma Medical History lactose intolerance Medical History POTS diag 09/2015 Surgical History appendectomy 2019 Hospitalization History strepthroat, uri, dehydr ation, otitis media 2004 Hospitalization History dehydtation 2006 Hospitalization History [facility] [place]iti [place] 09/12- Hospitalization History 3 days vomitting blood 0 01/2017 Hospitalization History vomiting, abd pain, dehy dration [facility] [place]-07/27/2017 Hospitalization History RBC 08/14 [employer] Other Evaluation noteNo assessment information available [facility] Work Phone: Evaluation note* Diagnosis Onset Date Resolution Status Nausea & vomiting acute [facility] Work Phone: Evaluation note* Diagnosis Onset Date Resolution Status Dehydration acute Hypokalemia acute Intractable nausea and vomiting acute Nausea & vomiting acute [facility] Work Phone: Evaluation note* Diagnosis Onset Date Resolution Status Abdominal pain acute Acute hypokalemia acute Chest pain acute Dehydration acute Hypokalemia acute Hypovolemia acute Beverley-Cotton tear acute Nausea & vomiting acute [facility] Work Phone: History and physical note Author Eliana Bautista [facility] January 07, 2023 2:11am Note Date/Time January 06, 2023 5 :30pm [facility] [address] [place] [address] Hospitalist H&P Signed Patient: Pili Parikh MR#: [id number] : 2005 Acct:[id number] Age/Sex: 17 / F Adm Date: 3 Loc: Room: [address] [place] [address] Type: ADM INOo Attending Dr: Eliana Bautista MD Copies to: [facility] FRANKY Starkey MD~ HPI DATE OF EXAMINATION: [...] unless noted in the HPI or below [facility] Attestation Statement: The following information was validated [...] promethazine 25 mg rectal suppository 25 mg WA Q6H PRN Nausea #10 supp 01/02/23 [Rx [...] % (Auto) 19.9 % (.) 01/06/23 14:20 [place] % (Auto) 7.4 % (.) 01/06/23 14:20 Eos % (Auto) 2.3 % (.) 01/06/23 14:20 Baso % (Auto) 0.3 % (.) 01/06/23 14:20 Nucleat RBC Rel Count 0.1 /100 WBC (0-0.5) 01/06/23 14:20 Neut # (Auto) 12.4 x10E3/uL (1.2-7.7) H 01/06/23 14:20 Lymph # (Auto) 3.5 x10E3/uL (1.20-4.8) 01/06/23 14:20 Ozark # (Auto) 1.3 x10E3/uL (0.1-1.00) H 01/06/23 [...] pH 6.5 (5.0-9.0) 01/06/23 16:10 Ur Specific Samaria 1.027 (1.001-1.030) 01/06/23 16:10 Urine Protein 100 [...] MD Documented By: Anette Stout APRN 01/06/23 1651 Signed By: <Electronically signed by FRANKY Stout> 01/06/23 1817 <Electronically signed by Eliana Bautista MD> 01/07/23 0211 [facility] Work Phone: Hospital course Narrative No data available for this section [facility] Work Phone: Hospital Discharge instructions Additional Instructions Follow-up with your primary care doctor Return to ED if develop worsening symptoms or [facility] Work Phone: Hospital Discharge instructions Additional Instructions Follow-up with your primary care doctor Return to the ED if you develop worsening [facility] Work Phone: Hospital Discharge instructions Additional Instructions Take Phenergan as prescribed for nausea vomiting. Take Motrin and Tylenol as needed for muscle aches and pains. Take Carafate as prescribed.[facility] Work Phone: Hospital Discharge instructions Additional [...] you should first call your surgeon at [phone] for advice. If your are unable to contact your surgeon, seek help from a hospital emergency room. [facility] Work Phone: Hospital Discharge instructions [...] with your family physician as soon as possible.[facility] Work Phone: Progress note No [...] nausea, vomiting, chest pain October 6:01pm Unknown February 26th, 2025 9:25am Chief Complaint Admit Date Unknown May 04, 2025 6:20a m Chief Complaint Admit Date Unknown May 04, 2025 6:20a m Unknown May 06, 2025 11:07 am Additional Source Comments INFORMATION SOURCE (unrecogn ized section and content) DATE CREATED AUTHOR 06/05/2018 [employer] DATE CREATED AUTHOR AUTHOR'S ORGANIZ ATION 07/14/2018 [facility] DATE CREATED AUTHOR AUTHOR'S ORGANIZ ATION 01/04/2022 [facility] DATE CREATED AUTHOR AUTHOR'S ORGANIZ ATION 02/02/2023 [facility] DATE CREATED AUTHOR AUTHOR'S ORGANIZ ATION 07/30/2024 [facility] DATE CREATED AUTHOR AUTHOR'S ORGANIZ ATION 08/02/2024 [facility] DATE CREATED AUTHOR AUTHOR'S ORGANIZ ATION 08/05/2024 [facility] DATE CREATED AUTHOR AUTHOR'S ORGANIZ ATION 01/18/2025 [facility] DATE CREATED AUTHOR AUTHOR'S ORGANIZ ATION 01/23/2025 [facility] DATE CREATED AUTHOR AUTHOR'S ORGANIZ ATION 05/10/2025 [facility] Source Comments (unrecognize d section and content) In the event this informatio n is protected by the Federal Confidentiality of Alcohol and Drug Abuse Patient Records regulations: The Federal rules restrict any use of the information to criminally investigate or prosecute any alcohol or drug abuse patient.[facility] Reason for Visit (unrecogniz ed section and content) Reason Comments Abdominal Pain Care Teams (unrecognized sec tion and content) Team Status: Inactive Member Role Status Dates Services [facility] Primary Care Provider MILY Bishop Attending Provide r Active Team Status: Inactive Member Role Status Dates [facility] Primary Care Provider Active Modesta Leeanna Chand , ASTROPHYSICS PROFESSOR-C Attending Provide r Active Team Status: Inactive Member Role Status Dates Services [facility] Primary Care Provider Active Brennen Britt MD Attending Provider Active Team Status: Inactive Member Role Status Dates Services [facility] Primary Care Provider Active Art Bianchi , DO Emergency Provider Active Team Status: Inactive Member Role Status Dates Services [facility] Primary Care Provider Active Ravi Arguello , DO Emergency Provider Active Team Status: Inactive Member Role Status Dates Services [facility] Primary Care Provider Active Ender Donovan , Emergency Provider Active Team Status: Inactive Member Role Status Dates Services [facility] Primary Care Provider Active Gilson Castro DO Emergency Provider Active Team Status: Active Member Role Status Dates Services [facility] Primary Care Provider Ac tive Team Status: Inactive Member Role Status Dates Services [facility] Primary Care Provider Ac latesha Rivera APRN Emergency Provider Active Team Status: Inactive Member Role Status Dates Services [facility] Primary Care Provider Ac latesha Fry Jr, MD Emergency Provider Active Team Status: Inactive Member Role Status Dates Services [facility] Primary Care Provider Ac latesha Castro , DO Emergency Provider Active Team Status: Active Member Role Status Dates Services [facility] Primary Care Provider Ac latesha Castro , DO Emergency Provider Active Gregorio Carey , DO Admit Provider, Attending Pr ovider Active Team Status: Inactive Member Role Status Dates Services [facility] Primary Care Provider Ac latesha Castro , DO Emergency Provider Active Gregorio Aurelio , DO Admit Provider, Attending Pr ovider Active Team Status: Inactive Member Role Status Dates Services [facility] Primary Care Provider Ac latesha Arguello , DO Emergency Provider Active Team Status: Inactive Member Role Status Dates Art Bianchi DO Emergency Provider Active Services [facility] Primary Care Provider Ac tive Team Status: Inactive Member Role Status Dates Services [facility] Primary Care Provider Ac latesha Bolanos DO Emergency Provider Active Team Status: Inactive Member Role Status Dates Services [facility] Primary Care Provider Ac latesha Bianchi , DO Emergency Provider Active Team Status: Inactive Member Role Status Dates Services [facility] Primary Care Provider Active Dixon Newberry MD Emergency Provider Active Team Status: Active Member Role Status Dates Services [facility] Primary Care Provider Active Team Status: Inactive Member Role Status Dates Services [facility] Primary Care Provider Active Federico Randolph DO Emergency Provider Active Team Status: Active Member Role Status Dates Services [facility] Primary Care Provider Active Rd Brown PA-C Emergency Provider Active Eliana Bautista MD Admit Provider, Attending Provider Active Team Status: Inactive Member Role Status Dates Services [facility] Primary Care Provider Active Rd Brown PA-C Emergency Provider Active Eliana Bautista MD Admit Provider, Attending Provider Active Team Status: Inactive Member Role Status Dates Services [facility] Primary Care Provider Active Colten Miller MD Attending Provider Active Team Status: Inactive Member Role Status Dates Services [facility] Primary Care Provider Active Start: March 18, 2024 End: March 19, 2024 Femi Benitez MD Emergency Provider Active Star t: March 18, 2024 End: March 19, 2024 Team Status: Inactive Member Role Status Dates Services [facility] Primary Care Provider Active Start: August 03, 2024 End: August 04, 2024 Ania Watson MD Emergency Provider Active Start: August 03, 2024 End: August 04, 2024 Team Status: Active Member Role Status Dates Services [facility] Primary Care Provider Active Start: October 28, 2024 Cesar Mcdonald DO Attending Provider Active Sta rt: October 28, 2024 Team Status: Inactive Member Role Status Dates [facility] Primary Care Provider Active Start: October 28, [...] May 04, 2025 End: May 04, 2025 Team Status: Inactive Member Role Status Drew Steinberg MD Attending Provider Active St art: May 06, 2025 End: May 06, 2025 Goals (unrecognized section and content) Goals [...] BE BASED ON THE PRIMARY CLINICAL RECORDS. [facility]. provides no warranty or guarantee of the accuracy or completeness of information in this document.
[2025-06-07] MEDS: ACETAMINOPHEN 500 MG TABLET 1000 MG PO (19:50)
== END 2025-06-07 20:21 | disposition home or self-care (01) ==
PROVIDERS: Nurse Practitioner; Emergency Provider Emergency Medicine
DX: J02.9 Acute pharyngitis, unspecified (principal); R21 Rash and other nonspecific skin eruption
CPT/HCPCS: 87070; 87880; 99283

== ENCOUNTER 2025-07-14 14:07 | Emergency (ER) | payer OTHER, SELFPAY ==
--- OUTSIDE RECORDS SUMMARY | 2025-07-14 14:14 | XMS_ITS | CCD ---
Author Organization [facility] Care Team Providers Care Key Account Coordinator Name Role Phone Calvin, Mere T Unavailable [...] Nilay Unavailable Unavailable Unavailable Primary [facility] Primary Care Provider DO Art Bianchi Emergency Provider [phone] Donovan, DO Ender J Emergency Provider [phone] Tugisselle, DO VoRavi M Emergency Provider [phone] Matthew DO Gilson Emergency Provider MILY Chand Attending Pr ovider MD Brennen Britt Attending Provider [facility] Prov ider [facility] Primary Care Provider FRANKY Rivera Emergency Provider MD Colten Fry Jr Emergency Provider DO Matthew Gilson Emergency Provider Aurelio, DO Gregorio Admit Provider Aurelio DO Gregorio Attending Provider [facility] Prov ider FRANKY Rivera Emergency Provider MD Colten Fry Jr Emergency Provider Matthew DO Gilson Emergency Provider Aurelio DO Gregorio Admit Provider [phone] Aurelio, DO Gregorio Attending Provider MILY Chand Attending Pr ovider Tugisselle, DO Rodrigues M Emergency Provider [phone] [facility] Prov ider FRANKY Rivera Emergency Provider MD Colten Fry Jr Emergency Provider DO Matthew Gilson Emergency Provider Aurelio, DO Gregorio Admit Provider [phone] Aurelio DO Gregorio Attending Provider MILY Chand Attending Pr ovider DO Ravi Arguello Emergency Provider DO Atr Bianchi Emergency Provider DO Robert Bolanos Emergency Provider [facility] Primary Care Provider MD Dixon Newberry Emergency Provider [facility] Primary Care Prov ider DO Federico Randolph Emergency Provider KATE Damian Emergency Provider MD Eliana Bautista Admit Provider MD Eliana Bautista Attending Provider [phone] SANDRO, DR VU Primary Care Unavailable DALIA ., AUSTIN Admitting Unavailable DALIA ., AUSTIN Attending Unavailable DALIA ., AUSTIN Consulting Unavailable DIAB ., IRWIN Admitting Unavailable ETHAN ., IRWIN Attending Unavailable SANDRO, DR VU Primary Care Unavailable KIA ARVIZU Consulting Unavailable ETHAN ., IRWIN Consulting Unavailable Colten Miller Unavailable [facility] Primary Care Provider MILY Chand Attending Pr ovider MD Colten Miller Attending Provider [facility] Primary Care Provider [phone] DO Ravi Arguello Emergency Provider MODESTA ARCHIBALD Primary Care Physician [facility] Primary Care Provider MD Femi Benitez Emergency Provider [phone] Cresencio Abel Attending Unavailable MODESTA ARCHIBALD Primary Care Unavailable MODSETA ARCHIBALD Primary Care Unavailable August Bermudez Attending Unavailable MODESTA ARCHIBALD Primary Care Unavailable DO Isaak Francis Attending Unavailable [facility] Primary Care Provider MD Ania Watson Emergency Provider MODESTA ARCHIBALD Primary Care Unavailable August Bermudez Attending Unavailable Cresencio Abel Attending Unavailable MODESTA ARCHIBALD Primary Care Unavailable MODESTA CHAND Primary Care Physician [phone] August Bermudez Attending Unavailable August Bermudez Attending Unavailable August Bermudez Attending Unavailable [facility] Primary Care Provider Rd Brown PA-C Emergency Provider Makayla Monk DO Attending Provider [phone] Jasmeet Dahl MD Attending Provider Drew Steinberg MD Attending Provider Jasmeet Dahl Admitting Unavailable Jasmeet Dahl Attending Unavailable Drew Steinberg Admitting Unavailable Drew Steinberg Attending Unavailable [facility] Primary Care Unavaila Ania Paz Admitting Unavailable Ania Watson Attending Unavailable Rd Brown Admitting Unavailable Rd Brown Attending Unavailable [facility] Primary Care Unavaila Makayla Verma Admitting Unavailable Makayla Monk Attending Unavailable Allergies Allergy Classification Reported Allergen(s) Allergy Type Date of Onset Reaction(s) Facility (15 sources) Haloperidol; Translations: [Haloperidol] Drug Allergy 3 Unknown Reaction, facial droop [facility] (17 sources) Metoclopramide; Translations: [Metoclopramide] Drug Allergy 3 Unknown (qualifier value) [facility] (5 sources) Haloperidol; Translations: [Haldol] Drug Allergy [facility] (5 sources) Iothalamate; Translations: [Reglan] Drug Allergy [facility] Rep[facility] Medications Current Medications Medication Drug Class(es) Dates Sig (Normalized) Sig (Original) acetaminophen 325 mg / HYDROcodone bitartrate 5 mg oral tablet (20 sources) Opioid Agonist Start: 03-13-2024 End: 03-16-2024 [place] 325 mg-5 mg oral tablet 1 tab(s), Oral, q6hr for pain for 3 day(s), 7 tab(s), Refill(s) 0, [id number], 160, cm, 03/13/24 17:38:00 EDT, Height/Length Dosing, [...] six hours as needed for pain Hydrocodone-Acetaminophen ([place]) 5-325 mg tablet Discontinued 1 TAB PO [...] twice daily as needed for pain Hydrocodone-Acetaminophen ([place]) 5-325 mg tablet Discontinued 1 TAB PO [...] day(s), # 21 tab(s), Refills(s) 0, [id number] 157, cm, 01/16/25 17:56:00 EST, Height/Length [...] day(s), # 9 tab(s), Refills(s) 0, Pharmacy: [id number], 160, cm, 03/13/24 17:38:00 [...] food, # 20 tab(s), Refills(s) 0, Pharmacy: [facility] #[id number], 157, cm, 01/16/25 17:56:00 [...] nausea/vomiting, # 10 tab(s), Refills(s) 0, Pharmacy: [facility] #[id number], 157, cm, 01/16/25 17:56:00 EST, Height/Length Dosing, 95, kg, 01/16/25 17:56:00 EST, Weight Dosing Start Date: 01/16/25 Status: Ordered Start: 07-30-2024 take 1 tablet by kathe th every eight hours as needed for nausea promethazine 12.5 mg oral tablet 12.5 mg = 1 tab(s), Oral, q8hr, PRN as needed for nausea/vomiting, second line, # 10 tab(s), Refills(s) 0, Pharmacy: [facility] #[id number], 157, cm, 07/30/24 19:37:00 EDT, Height/Length Dosing, 96.1, kg, 07/30/24 19:37:00 EDT, Weight Dosing Start Date: 07/30/24 Status: Ordered Start: 07-30-2024 take 12.5 mg rectal route every eight hours as needed for nausea Phenergan 12.5 mg Supp 12.5 mg = 1 supp, Rectal, q8hr, PRN as needed for nausea/vomiting, 3rd line, # 6 EA, Refills(s) 0, [id number] 157, cm, 07/30/24 19:37:00 EDT, Height/Length [...] 25 mg supposito ry Discontinued 25 MG AR Q6H as needed for Nausea January 02, [...] 25 mg supposito ry Discontinued 25 MG AR Q6H as needed for nausea and vomiting [...] 12.5 mg supposi tory Discontinued 12.5 MG AR Once September 30, 2021 12:00am October 08, 2021 9:34pm Start: 09-30-2021 End: 10-08-2021 Promethazine Discontinued 12 .5 MG AR Once September 30, 2021 12:00am October 08, [...] (Phenergan) 25 mg suppository Discontinued 25 MG AR Q4H as needed for nausea and vomiting [...] (Phenergan) 25 mg suppository Discontinued 25 MG AR Q8H as needed for nausea and vomiting February 13, 2018 12:00am March 13, 2018 10:44pm Start: 01-03-2018 End: 10-16-2018 Promethazine 25 mg supposito ry Discontinued 25 MG AR Q6H as needed for Nausea April 23, [...] Nausea/Vomiting, # 16 tab(s), Refills(s) 0, Pharmacy: [facility][id number], 157, cm, 07/30/24 19:37:00 [...] every 4-6 hrs for 5 days SANTO: [id number] Apr, Active take 1 tablet by kathe th every six hours oxyCODONE-Acetaminophen 5-325 MG 1 tablet as needed Orally every 6 hrs Active [id number] 200 actuat albuterol 0.09 mg/actuat metered dose [...] / neomycin 3.5 mg/ml / polymyxin b [id number] unt/ml otic suspension (20 sources) Aminoglycoside Antibacterial, Polymyxin-class Antibacterial, Corticosteroid Start: 10-31-2017 End: 12-21-2017 Ivjzvgun-Fpewocfbi-Kt 3.5-10,000-1 mg/mL-unit/mL-% drops,suspension Discontinued 3 DROPS OTIC [...] 11, 2019 1:00am January 12, 2021 1:35pm Daecfkim-Bgw-Ioixiov Fumarate (Multi Vitamin) 9 mg iron/15 mL Liquid (17 sources) Start: 09-30-20 End: 07-19-20 take 1 tablet by mouth once daily Wxrjqvdb-Zhq-Eevacle Fumarate (Multi Vitamin) 9 mg iron/15 mL Liquid Discontinued 1 TAB PO Daily September 29, 2019 11:00pm July 19, 2021 1:07pm Start: 09-30-2019 End: 07-19-2021 take 1 tablet by mouth once daily Iaxsvaym-Ezy-Vhsdjae Fumarate (Multi Vitamin) 9 mg iron/15 mL [...] End: 03-13-2018 Oxymetazoline (Afrin (Oxymetazoline)) 0.05 % [place],Non-Aerosol Discontinued 2 SPRAY INTRANASAL Q12H December 23, [...] 2022 11:25am administer with food or milk Prenat.Vits,Noe,Yxh-Rtzq-Had ic (14 sources) Start: 02-06-2022 End: 03-08-2022 take 1 tablet by mouth once daily Prenat.Vits,Noe,Aoa-Llpk-Pmrau Discontinued 1 TAB PO Daily 60 February 06, 2022 12:00am March 08, 2022 7:15pm Start: 02-06-2022 End: 03-08-2022 take 1 tablet by mouth once daily Prenat.Vits,Noe,Zow-Hmkk-Vjelx Discontin ued 1 TAB PO Daily 60 February 06, 2022 1:00am March 08, 2022 8:15pm Prenat.Vits,Noe,Zah-Mvyi-Fwf ic tablet (3 sources) Start: 02-06-2022 End: 03-08-2022 take 1 tablet by mouth once daily Prenat.Vits,Noe,Jpz-Bwcu-Zggrp tablet Discontinued 1 TAB PO Daily 60 February 06, 2022 1:00am March 08, 2022 8:15pm Start: 02-06-2022 End: 03-08-2022 take 1 tablet by mouth once daily Prenat.Vits,Noe,Iuh-Ulfl-Oadfl tablet Discontinued 1 TAB PO Daily 60 February 06, 2022 12:00am March 08, 2022 7:15pm Vit No.065-Iqbs-Uvuat ( Vitamin) 27 mg iron- 800 mcg tablet (17 sources) Start: 06-08-2022 End: 08-18-2022 take 1 tablet by mouth once daily Vit No.154-Yrek-Hvnhl ( Vitamin) 27 mg iron- 800 mcg tablet Discontinued 1 TAB PO Daily June 07, 2022 11:00pm August 18, 2022 11:33am Start: 06-08-2022 End: 08-18-2022 take 1 tablet by mouth once daily Vit No.911-Mird-Flslx ( Vitamin) 27 mg iron- 800 mcg tablet Discontinued 1 TAB PO Daily June 08, 2022 12:00am August 18, 2022 12:33pm Start: 06-08-2022 take 1 tablet by kathe th once daily Vit No.871-Wlcm-Ccazc ( Vitamin) 27 mg iron- 800 mcg [...] / K92.0(ICD-10) Onset: 7 Unclassified (1 source) 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 Normal [facility] Comment on above: Performed By: #### C UU #### [place] [id number] [facility] Urine Cultureon 05-04-2025 Bacteria identified Cx Nom (U) <9,000 colonies/ml mixed bacterial skin contaminants 2 Days PERFORMED BY: [place] [address] PATHOLOGIST STAGE TECHNICIAN FRAN NUNEZ M.D. Normal [facility] Comment on above: Performed By: #### C UU #### [facility] [address] [place] [address] Urine cultureOrdered By: Phi Dahl on 05-04-2025 Bacteria identified Cx Nom (U) Urine culture [facility] Urine Cultureon 01-23-2025 Bacteria identified Cx Nom (U) >100,000 colonies/ml mixed bacterial skin contaminants 2 Days PERFORMED BY: [place] [address] PATHOLOGIST STAGE TECHNICIAN IDANIA GODOY M.D. Normal [facility] Comment on above: Performed By: #### C UU #### [address] Abdomen/Pelvis w/ Contras ton 01-17-2025 [...] MD Transcribed by: KIRA Technologist: FABIÁN [facility] CT Chest w/ Contraston 01-17 [...] Anselmo Dolan MD Transcribed by: KIRA Technologist: [facility] CT Head or Brain w/o [...] Anselmo Dolan MD Transcribed by: KIRA Technologist: [facility] CT Spine Cervical w/o Contra ston 01-17-2025 [...] MD Transcribed by: KIRA Technologist: FABIÁN [facility] ED Note-Physicianon 01-17-20 ED Note-Physician [...] and Complexity of Problems Differential Diagnosis: [] [facility] Data External documents reviewed: [] My [...] day(s), # 21 tab(s), Refills(s) 0, Pharmacy: [facility] #[id number], 157, cm, 01/16/25 17:56:00 [...] food, # 20 tab(s), Refills(s) 0, Pharmacy: [facility]/pharm[facility] #[id number], 157, cm, 01/16/25 17:56:00 EST, Height/Length Dosing, 95, kg, 01/16/25 17:56:00 EST, Weight Dosing promethazine, 12.5 mg = 0.5 tab(s), Tab, Oral, Once, Stop date 01/16/25 19:41:00 EST, STAT, Start date 01/16/25 19:41:00 EST, 01/16/25 19:41:00 EST promethazine, 12.5 mg = 1 tab(s), Oral, q6hr, PRN for nausea/vomiting, # 10 tab(s), Refills(s) 0, Pharmacy: [facility]/pharmacy #[id number], 157, cm, 01/16/25 17:56:00 EST, Height/Length Dosing, 95, kg, 01/16/25 17:56:00 EST, Weight Dosing ABO/Rh ABO/Rh History Check Antibody Screen Basic Metabolic Panel Beta hCG Qual Blood Bank ID# CBC w/ Auto Diff CT Abdomen/Pelvis w/ Contrast CT Chest w/ Contrast CT Head or Brain w/o Cont (more content not included)... [facility] Comment on above: Result Comment: Elec tronically Signed By: Rashaad lAbrecht PA-C\.br\Date and Time Signed: 01/16/25 22:30 EST\.br\Electronically [...] Araya DO Transcribed by: KIRA Technologist: DES [facility] XR Knee Complete 4+ Views Leidy [...] DO Transcribed by: KIRA Technologist: AMD [facility] ABO/Rhon 01-16-2025 ABO/Rh Positive Invalid Interpretation Code [facility] Comment on above: Performed By: #### 2 [id number] #### [facility] [address] [place] [address] ABO/Rh History Checkon 01-16 ABO/Rh History Check Verified Hx Blood Type Normal [facility] Comment on above: Performed By: #### 1 [id number] #### [facility] [address] [place] [address] ABSCon 01-16-2025 ABSC Gel Interp Negative Normal [facility] Comment on above: Performed By: #### 1 [id number] #### [facility] [address] [place] [address] B hCG Qualon 01-16-2025 Beta HCG ( test) Ql Negative Normal [facility] Comment on above: Performed By: #### 2 [id number] #### [facility] [address] [place] [address] BLOOD BANKOrdered By: Ti Mccain on 01-16-2025 ABO/Rh Interp Positive Invalid Interpretation Code [facility] BB Subsection ABSC Gel Interp Negative (01/16/25 7:26 PM) Normal [facility] BB Subsection BMPon 01-16-2025 Anion gap [Moles/Vol] 20 mmol/L High 6-16 [facility] Comment on above: Performed By: #### 2 [id number] #### [facility] [address] [place] [address] Calcium [Mass/Vol] 10.9 mg/dL Normal 8.9-11.1 [facility] Comment on above: Performed By: #### 2 [id number] #### [facility] [address] [place] [address] Chloride [Moles/Vol] 101 mmol/L Normal 101-111 [facility] Comment on above: Performed By: #### 2 [id number] #### [facility] [address] [place] [address] CO2 [Moles/Vol] 22 mmol/L Normal 21-31 [facility] Comment on above: Performed By: #### 2 [id number] #### [facility] [address] [place] [address] Creatinine [Mass/Vol] 0.9 mg/dL Normal 0.5-1.3 [facility] Comment on above: Performed By: #### 2 [id number] #### [facility] [address] [place] [address] Glucose [Mass/Vol] 116 mg/dL Normal 55-199 [facility] Comment on above: Performed By: #### 2 [id number] #### [facility] [address] [place] [address] Potassium [Moles/Vol] 3.3 mmol/L Low 3.5-5.3 [facility] Comment on above: Performed By: #### 2 [id number] #### [facility] [address] [place] [address] Sodium [Moles/Vol] 140 mmol/L Normal 135-145 [facility] Comment on above: Performed By: #### 2 [id number] #### [facility] [address] [place] [address] Urea nitrogen [Mass/Vol] 23 mg/dL High 5-21 [facility] Comment on above: Performed By: #### 2 [id number] #### [facility] [address] [place] [address] Urea nitrogen/Creatinine [Mass ratio] 26 No Units High 10-20 [facility] Comment on above: Performed By: #### 2 [id number] #### [facility] [address] [place] [address] Blood Bank ID#on 01-16-2025 BBID# [id number] Invalid Interpretation Code [facility] Comment on above: Performed By: #### 1 [id number] #### [facility] [address] [place] [address] CBC w/ Auto Diffon 5 Basophils/100 WBC (Bld) 0.3 % Normal 0.0-2.0 [facility] Comment on above: Performed By: #### 2 [id number] #### [facility] [address] [place] [address] Basophils/Leukocytes Auto (Bld) [Pure # fraction] 0.0 E9/L Normal 0.0-0.2 [facility] Comment on above: Performed By: #### 2 [id number] #### [facility] [address] [place] [address] Eosinophils (Bld) [#/Vol] 0.0 E9/L Normal 0.0-0.5 [facility] Comment on above: Performed By: #### 2 [id number] #### [facility] [address] [place] [address] Eosinophils/100 WBC (Bld) 0.0 % Normal 0.0-8.0 [facility] Comment on above: Performed By: #### 2 [id number] #### [facility] [address] [place] [address] Erythrocyte distribution width (RBC) [Ratio] 13.7 % Normal 10.9-14.2 [facility] Comment on above: Performed By: #### 2 655676 #### [facility] [address] [place] [address] Hematocrit (Bld) [Volume fraction] 46.9 % High 34.0-46.0 [facility] Comment on above: Performed By: #### 2 [id number] #### [facility] [address] [place] [address] Hemoglobin (Bld) [Mass/Vol] 16.0 g/dL Normal 12.0-16.0 [facility] Comment on above: Performed By: #### 2 093145 #### [facility] [address] [place] [address] Lymphocytes (Bld) [#/Vol] 1.4 E9/L Normal 1.0-4.0 [facility] Comment on above: Performed By: #### 2 045211 #### [facility] [address] [place] [address] Lymphocytes/100 WBC (Bld) 11.6 % Low 14.0-50.0 [facility] Comment on above: Performed By: #### 2 688212 #### [facility] [address] [place] [address] MCH (RBC) [Entitic mass] 28.8 pg Normal 27.0-34.0 [facility] Comment on above: Performed By: #### 2 [id number] #### [facility] [address] [place] [address] MCHC (RBC) [Mass/Vol] 34.1 g/dL Normal 31.4-36.0 [facility] Comment on above: Performed By: #### 2 [id number] #### [facility] [address] [place] [address] MCV (RBC) [Entitic vol] 84.3 fL Normal 80.0-100.0 [facility] Comment on above: Performed By: #### 2 [id number] #### [facility] [address] [place] [address] Monocytes (Bld) [#/Vol] 0.6 E9/L Normal 0.2-1.0 [facility] Comment on above: Performed By: #### 2 946215 #### [facility] [address] [place] [address] Neutrophils (Bld) [#/Vol] 10.0 E9/L High 2.0-7.5 [facility] Comment on above: Performed By: #### 2 [id number] #### [facility] [address] [place] [address] Neutrophils/100 WBC (Bld) 83.4 % High 36.0-75.0 [facility] Comment on above: Performed By: #### 2 950218 #### [facility] [address] [place] [address] Platelet mean volume (Bld) [Entitic vol] 8.9 fL Normal 6.4-10.8 [facility] Comment on above: Performed By: #### 2 399891 #### [facility] [address] [place] [address] Platelets (Bld) [#/Vol] 300.0 E9/L Normal 150.0-500. 0 [facility] Comment on above: Performed By: #### 2 498751 #### [facility] [address] [place] [address] RBC (Bld) [#/Vol] 5.6 E12/L Normal 4.3-5.9 [facility] Comment on above: Performed By: #### 2 127814 #### [facility] [address] [place] [address] WBC corrected for nucl RBC Auto (Bld) [#/Vol] 12.0 E9/L High 4.0-11.0 [facility] Comment on above: Performed By: #### 2 [id number] #### [facility] [address] [place] [address] CHEMISTRYOrdered By: SYSTEM SYSTEM on 01-16-2025 Albumin [...] 23.1 s Low 25.1 - 36.5 second(s) [facility] Auto Coag Comment on above: Interpretive Data: [...] the same coagulation reagent and instrumentation as [facility]. Currently there are no coagulation studies available worldwide for children to 14 days, and no normal ranges. Heparin therapeutic range (represented by Anti-Factor Xa activity of 0.2 - 0.4 U/mL) corresponds to PTT of 56.6 - 109.0 sec. INR Coag (PPP) [Relative time] 1.10 {INR} Invalid Interpretation Code [facility] Comment on above: Interpretive Data: I NR results are specifically intended to assess patients stabilized on long-term Anticoagulation therapy suggested INR s Less Intensive Anticoagulation 2.0 3.0 Conventional Range 3.0 4.5 PT Coag (PPP) [Time] 12.3 s Normal 9.4 - 1 2.5 second(s) [facility] Auto Coag Comment on above: Interpretive Data: [...] the same coagulation reagent and instrumentation as [facility]. Currently there are no coagulation studies available worldwide for children to 14 days, and no normal ranges. ED Clinical Summaryon 2024 ED Clinical Summary ED Clinical Summary [address] [address] ED Clinical Summary Person Information [facility] Age[facility] 19 [facility] : 2005 Sex: Female [...] 01/16/2025 20:36:16 01/16/2025 20:36:16 ADDRESS: [address] [facility] [id number] PHYS DOC NOTES: MEDICAL INFORMATION: Prescriptions Given: New Medications [facility]/pharmacy #[id number], [address], [place] [id number], [phone] cyclobenzaprine (cyclobenzaprine 5 mg Tab) 1 Tablets By Mouth 3 times a day for 7 Days. Refills: 0. Medications to Continue Taking That Have Changed [facility]/pharmacy #[id number], [address], [place] [id number], [phone] START: naproxen (naproxen 500 mg Tab) 1 [...] Contusion; Fall Prevention in the Home, Adult, Vmzt-wk-Jnuc Follow up: With: Address: When: MODESTA NIKUNJ [address] [place] [phone] [facility] (1) In 3 days 2025 Comments: Call Dr for diagnosis based follow up DIAGNOSIS: Abdominal contusion; Fall down steps; Knee contusion [facility] ED Patient Summaryon 025 ED Patient Summary ED Patient Summary [address] [address] Patient Discharge Instructions Person Information Name: PILI PARIKH Age: 19 Years Arrival Date: 01/16/2025 17:51:31 Discharge Diagnosis: Abdominal contusion; Fall down steps; Knee contusion Primary Care Physician: MODESTA CHAND CNP Provider Information Primary Provider: August Bermudez M.D. [facility] Manager:Rashaad Albrecht PA-C The exam and treatment you received in the Emergency Department were for an urgent problem and are not intended as complete care. It is important that you follow up with a doctor, nurse practitioner, or physician???s school bus driver/teacher assistant for ongoing care. If your symptoms [...] Instructions: With: Address: When: MODESTA CHAND [address] [place] [phone] [facility] (1) In 3 days 2025 Comments: Call Dr for diagnosis based follow up In the event that this physician does not participate in your insurance network, please consult with your insurance company to find a nearby participating provider. Patient Education Materials: RICE Therapy for Routine Care of Injuries; Contusion; Fall Prevention in the Home, Adult, Zuhh-jf-Kjvj A MESSAGE TO ALL PATIENTS REGARDING OPIOIDS PRESCRIPTION OPIOIDS: WHAT YOU NEED TO KNOW Prescription opioids can be used to help relieve bvlucgly-mk-himktk pain and are often prescribed following a [...] ??? Visit (more content not included)... [facility] Ethanolon 01-16-2025 Ethanol Lvl <10 Normal <=11 [facility] Comment on above: Performed By: #### 2 [id number] #### [facility] [address] [place] [address] HEMATOLOGYOrdered By: SYSTEM SYSTEM on 01-16-2025 Basophils/100 [...] 01-16-2025 Albumin [Mass/Vol] 5.5 g/dL High 3.3-5.0 [facility] Comment on above: Performed By: #### 2 [id number] #### [facility] [address] [place] [address] Albumin/Globulin (S) [Mass conc ratio] 1.5 Normal 1.1-2.2 [facility] Comment on above: Performed By: #### 2 [id number] #### [facility] [address] [place] [address] ALP [Catalytic activity/Vol] 71 Int._Unit/L Normal 21-98 [facility] Comment on above: Performed By: #### 2 [id number] #### [facility] [address] [place] [address] ALT No additional P-5'-P [Catalytic activity/Vol] 42 Int._Unit/L Normal 6-46 [facility] Comment on above: Performed By: #### 2 [id number] #### [facility] [address] [place] [address] AST [Catalytic activity/Vol] 19 Int._Unit/L Normal 5-43 [facility] Comment on above: Performed By: #### 2 [id number] #### [facility] [address] [place] [address] Bilirubin [Mass/Vol] 1.0 mg/dL Normal 0.0-1.1 [facility] Comment on above: Performed By: #### 2 [id number] #### [facility] [address] [place] [address] Bilirubin.direct [Mass/Vol] 0.2 mg/dL Normal 0.0-0.4 [facility] Comment on above: Performed By: #### 2 [id number] #### [facility] [address] [place] [address] Bilirubin.indirect [Mass or moles/Vol] 0.8 mg/dL Normal 0.1-0.9 [facility] Comment on above: Performed By: #### 2 [id number] #### [facility] [address] [place] [address] Globulin (S) [Mass/Vol] 3.6 g/dL Normal 1.4-4.0 [facility] Comment on above: Performed By: #### 2 [id number] #### [facility] [address] [place] [address] Protein [Mass/Vol] 9.1 g/dL High 6.0-7.8 [facility] Comment on above: Performed By: #### 2 [id number] #### [facility] [address] [place] [address] Lactic Acidon 01-16-2025 Lactic Acid Lvl 1.6 mmol/L Normal 0.5-2.2 [facility] Comment on above: Performed By: #### 2 [id number] #### [facility] [address] [place] [address] Lipase Levelon 01-16-2025 Lipase [Catalytic activity/Vol] 8 U/L Low 13-58 [facility] Comment on above: Performed By: #### 2 [id number] #### [facility] [address] [place] [address] PT & PTTon 01-16-2025 aPTT Coag (PPP) [Time] 23.1 second(s) Low 25.1-36.5 [facility] Comment on above: Result Comment: [...] the same coagulation reagent and instrumentation as [facility]. Currently there are no coagulation studies available worldwide for children to 14 days, and no normal ranges. Heparin therapeutic range (represented by Anti-Factor Xa activity of 0.2 - 0.4 U/mL) corresponds to PTT of 56.6 - 109.0 sec. Performed By: #### 1 [id number] #### [facility] [address] [place] [address] INR Coag (PPP) [Relative time] 1.10 {INR} Invalid Interpretation Code [facility] Comment on above: Result Comment: INR results are specifically intended to assess patients stabilized on long-term Anticoagulation therapy suggested INR???s ???Less Intensive Anticoagulation??? 2.0 ??? 3.0 Conventional Range 3.0 ??? 4.5 Performed By: #### 1 [id number] #### [facility] [address] [place] [address] PT Coag (PPP) [Time] 12.3 second(s) Normal 9.4-12.5 [facility] Comment on above: Result Comment: [...] the same coagulation reagent and instrumentation as [facility]. Currently there are no coagulation studies available worldwide for children to 14 days, and no normal ranges. Performed By: #### 1 [id number] #### [facility] [address] [place] [address] Pre-Arrival Noteon Pre-Arrival Note Pre-Arrival Note Pre-Arrival Summary Name: , quincyjermaine Current Date: 01/16/2025 17:51:59 EST Gender: Female Date of : Age: 19 Pre-Arrival Type: EMS ETA: 01/16/2025 18:12:00 EST Primary Care Physician: Presenting Problem: fall Pre-Arrival User: Referring Source: Location: Completion Date/Time: 01/16/2025 17:42:00 [facility] Emergency Department Pre-Hospital Report Form Vital Signs: Pre-Hospital Report: Treatment in Route: Response to Treatment: Misc. Issues: Normal [facility] SEROLOGYOrdered By: Ghazal merida on 01-16-2025 Beta HCG ( test) Ql Negative (01/16/25 7:26 PM) Normal [facility] Man Sero Troponinon 01-16-2025 Troponin HS 3.40 pg/mL Low 10.10-27.1 0 [facility] Comment on above: Result Comment: The 95% CI (Confidence Interval) PPV (Positive Predictive Value) for myocardial infarction in females is 38 pg/mL, in males 51 pg/mL. The results should be used in conjunction with clinical conditions of myocardial infarction. (Access High Sensitivity Troponin I Instructions For Use, [place], June 2018) Performed By: #### 2 [id number] #### [facility] [address] [place] [address] eGFRon 01-16-2025 eGFR 93 mL/min/1.73 m2 Normal >=59 [facility] Comment on above: Performed By: #### 1 [id number] #### [facility] [address] [place] [address] Alanine aminotransferase [En zymatic activity/volume] in Serum or PlasmaOrdered By: Rd Brown on 10-28-2024 ALT [Catalytic activity/Vol] Alanine aminotransferase [Enzymatic activity/volume] in Serum or Plasma 7 [facility] Albumin [Mass/volume] in Ser um or Plasma by Bromocresol green (BCG) dye binding methoOrdered By: Rd Brown on 10-28-2024 Albumin BCG dye [Mass/Vol] Albumin [Mass/volume] in Serum or Plasma by Bromocresol green (BCG) dye binding metho 3.5-5.7 [facility] Alkaline phosphatase [Enzyma tic activity/volume] in Serum or PlasmaOrdered By: Rd Brown on 10-28-2024 ALP [Catalytic activity/Vol] Alkaline phosphatase [Enzymatic activity/volume] in Serum or Plasma 34-104 [facility] Amphetamine Screen Ql (U)Ord ered By: Rd Brown on 10-28-2024 Amphetamines Ql (U) Amphetamines screen Negativ e [facility] Appearance of UrineOrdered B y: Rd Brown on 10-28-2024 Appearance (U) Urine appearance Abnormal Clear [facility] Aspartate aminotransferase [ Enzymatic activity/volume] in Serum or PlasmaOrdered By: Rd Brown on 10-28-2024 AST [Catalytic activity/Vol] Aspartate aminotransferase [Enzymatic activity/volume] in Serum or Plasma 39 [facility] Bacteria [Presence] in Urine by AutomatedOrdered By: Rd Brown on 10-28-2024 Bacteria Auto Ql (U) Bacteria [Presence] in Urine by Automated High None Seen [facility] Barbiturates [Presence] in U rine by Screen methodOrdered By: Rd Brown on 10-28-2024 Barbiturates Screen Ql (U) Barbiturates [Presence] in Urine by Screen method Negative [facility] Basic Metabolic Panelon 12-0 Anion gap [Moles/Vol] 19.5 mmol/L High 6.0-15.0 [facility] Comment on above: Performed By: #### C UU #### [address] Calcium [Mass/Vol] 10.4 mg/dL High 8.6-10.3 [facility] Comment on above: Performed By: #### C UU #### [address] Chloride [Moles/Vol] 94 mmol/L Low 98-107 [facility] Comment on above: Performed By: #### C UU #### [address] CO2 [Moles/Vol] 26.3 mmol/L Normal 21.0-31.0 [facility] Comment on above: Performed By: #### C UU #### [place] [address] [place] Creatinine [Mass/Vol] 0.91 mg/dL Normal 0.60-1.20 [facility] Comment on above: Performed By: #### C UU #### [place] [address] [place] Creatinine Clr Calc Pharmacy 104.62 Normal [facility] Comment on above: Performed By: #### C UU #### [place] [address] [place] GFR/1.73 sq M.predicted MDRD (S/P/Bld) [Vol rate/Area] mL/min/{1.73_m2} Normal [facility] Comment on above: Performed By: #### C UU #### [address] Glucose [Mass/Vol] 91 mg/dL Normal 70-100 [facility] Comment on above: Result Comment: [place] Glucose Reference Range is dependent on time and content of last meal. Glucose of more than 200 mg/dL in a nonstressed, ambulatory subject supports the diagnosis of Diabetes Mellitus. ADA recommended reference range Performed By: #### C UU #### [address] Potassium [Moles/Vol] 2.8 mmol/L Off scale low 3.5-5.1 [facility] Comment on above: Result Comment: Crit ical Result Called to and read back by: MATT BUSH at: 10/28/2024 19:29:56 by:[id number] Performed By: #### C UU #### [address] Sodium [Moles/Vol] 137 mmol/L Normal 136-145 [facility] Comment on above: Performed By: #### C UU #### [address] Urea nitrogen [Mass/Vol] 21 mg/dL Normal 7-25 [facility] Comment on above: Performed By: #### C UU #### [address] Basophils Auto (Bld) [#/Vol] Ordered By: Rd Brown on 10-28-2024 Basophils (Bld) [#/Vol] Automated basophil count 0.0-0.2 [facility] Basophils/100 WBC Auto (Bld) Ordered By: Rd Brown on 10-28-2024 Basophils/100 WBC (Bld) Automated basophil % . [facility] Benzodiazepines Screen Ql (U )Ordered By: Rd Brown on 10-28-2024 Benzodiazepines Ql (U) Benzodiazepines [ Presence] in Urine by Screen method Negative [facility] Benzoylecgonine [Presence] i n Urine by Screen methodOrdered By: Rd Brown on 10-28-2024 Benzoylecgonine Screen Ql (U) Benzoylecgonine [Presence] in Urine by Screen method Negative [facility] Bilirubin Test strip Ql (U)O rdered By: Rd Brown on 10-28-2024 Bilirubin Ql (U) Bilirubin.total [Pre sence] in Urine by Test strip Negative [facility] Bilirubin.direct [Mass/volum e] in Serum or PlasmaOrdered By: Rd Brown on 10-28-2024 Bilirubin.direct [Mass/Vol] Bilirubin.direct [Mass/volume] in Serum or Plasma High 0.03-0.18 [facility] Bilirubin.total [Mass/volume ] in Serum or PlasmaOrdered By: Rd Brown on 10-28-2024 Bilirubin [Mass/Vol] Bilirubin.total [Mass/volume] in Serum or Plasma High 0.3-1.0 [facility] Calcium [Mass/volume] in Ser um or PlasmaOrdered By: Rd Brown on 10-28-2024 Calcium [Mass/Vol] Calcium [Mass/volume ] in Serum or Plasma High 8.6-10.3 [facility] Cannabinoids [Presence] in U rine by Screen methodOrdered By: Rd Brown on 10-28-2024 Cannabinoids Screen Ql (U) Cannabinoids [Presence] in Urine by Screen method High Negative [facility] Comment on above: These are [...] l [Moles/volume] in Serum or Plasma 21.0-31.0 [facility] Chloride [Moles/volume] in [place] or PlasmaOrdered By: Rd Brown on 10-28-2024 Chloride [Moles/Vol] Chloride [Moles/vol ume] in Serum or Plasma Low 98-107 [facility] Color Auto (U)Ordered By: Andrew Brown on 10-28-2024 Color (U) Color of Urine by Auto Abnormal Yellow Fi [facility] Complete Blood Count Auto Di ffon 10-28-2024 Basophils (Bld) [#/Vol] 0.1 10*3/uL Normal 0.0-0.2 [facility] Comment on above: Result Comment: PERF ORMED BY: [place] [address] PATHOLOGIST STAGE TECHNICIAN IDANIA GODOY M.D. Performed By: #### C UU #### [address] Basophils/100 WBC (Bld) 0.7 % Normal . [facility] Comment on above: Performed By: #### C UU #### [address] Eosinophils (Bld) [#/Vol] 0.1 10*3/uL Normal 0.0-0.45 [facility] Comment on above: Performed By: #### C UU #### [address] Eosinophils/100 WBC (Bld) 0.6 % Normal . [facility] Comment on above: Performed By: #### C UU #### [address] Erythrocyte distribution width (RBC) [Ratio] 13.4 % Normal 11.9-15.3 [facility] Comment on above: Performed By: #### C UU #### [address] Hematocrit (Bld) [Volume fraction] 49.2 % High 34.0-46.4 [facility] Comment on above: Performed By: #### C UU #### [address] Hemoglobin (Bld) [Mass/Vol] 16.5 g/dL High 11.8-15.4 [facility] Comment on above: Performed By: #### C UU #### [address] Lymphocytes (Bld) [#/Vol] 2.9 10*3/uL Normal 1.00-4.8 [facility] Comment on above: Performed By: #### C UU #### [address] Lymphocytes/100 WBC (Bld) 14.7 % Normal . [facility] Comment on above: Performed By: #### C UU #### [address] MCH (RBC) [Entitic mass] 28.7 pg Normal 24.7-34.3 [facility] Comment on above: Performed By: #### C UU #### [address] MCV (RBC) [Entitic vol] 85.7 fL Normal 80-100 [facility] Comment on above: Performed By: #### C UU #### [address] Mean Corpuscular HGB Conc 33.5 g/dL Normal 32.0-35.0 [facility] Comment on above: Performed By: #### C UU #### [address] Monocytes (Bld) [#/Vol] 1.2 10*3/uL High 0.0-0.8 [facility] Comment on above: Performed By: #### C UU #### [address] Monocytes/100 WBC (Bld) 16.96 % Normal 0.00-20.00 [facility] Comment on above: Performed By: #### C UU #### [address] Monocytes/100 WBC (Bld) 5.9 % Normal . [facility] Comment on above: Performed By: #### C UU #### [address] [place] [address] [place] Neutrophils (Bld) [#/Vol] 15.5 10*3/uL High 1.8-7.7 [facility] Comment on above: Performed By: #### C UU #### [address] Neutrophils/100 WBC (Bld) 78.1 % Normal . [facility] Comment on above: Performed By: #### C UU #### [address] NRBC% 0.1 /100{WBC} Normal 0-0.5 [facility] Comment on above: Performed By: #### C UU #### [address] Platelet mean volume (Bld) [Entitic vol] 8.4 fL Normal 6.3-10.7 [facility] Comment on above: Performed By: #### C UU #### [place] [address] [place] Platelets (Bld) [#/Vol] 333 10*3/uL Normal 150-450 [facility] Comment on above: Performed By: #### C UU #### [address] RBC (Bld) [#/Vol] 5.74 10*6/uL High 3.60-5.00 [facility] Comment on above: Performed By: #### C UU #### [address] WBC (Bld) [#/Vol] 19.8 10*3/uL High 3.8-11.6 [facility] Comment on above: Performed By: #### C UU #### [address] Creatinine [Mass/volume] in Serum or PlasmaOrdered By: Rd Brown on 10-28-2024 Creatinine [Mass/Vol] Creatinine [Mass/v olume] in Serum or Plasma 0.60-1.20 [facility] Dipstick and Microscopicon 1 12-29-2023 Appearance (U) Turbid Critically abnormal Clear [facility] Comment on above: Order Comment: Name Collection Type:: Clean-Voided Midstream Performed By: #### C UU #### [facility] [address] [place] [address] [place] Bacteria,Urine 1+ High None Seen [facility] Comment on above: Order Comment: Name Collection Type:: Clean-Voided Midstream Performed By: #### C UU #### [place] [address] [place] Bilirubin,Urine Negative Normal Negative [facility] Comment on above: Order Comment: Name Collection Type:: Clean-Voided Midstream Performed By: #### C UU #### [place] [address] [place] Color (U) [place] Critically abnormal Yellow [facility] Comment on above: Order Comment: Name Collection Type:: Clean-Voided Midstream Performed By: #### C UU #### [place] [address] [place] Glucose Ql (U) Normal Normal Normal [facility] Comment on above: Order Comment: Name Collection Type:: Clean-Voided Midstream Performed By: #### C UU #### [place] [address] [place] Hyaline Casts,Urine 9 [LPF] High 0-8 [facility] Comment on above: Order Comment: Name Collection Type:: Clean-Voided Midstream Performed By: #### C UU #### [place] [address] [place] Ketones Ql (U) 3+ High Negative [facility] Comment on above: Order Comment: Name Collection Type:: Clean-Voided Midstream Performed By: #### C UU #### [place] [address] [place] Leukocyte esterase Test strip Ql (U) 3+ High Negative [facility] Comment on above: Order Comment: Name Collection Type:: Clean-Voided Midstream Performed By: #### C UU #### [facility] [address] [place] [address] [place] Mucus,Urine 4+ Critically abnormal [facility] Comment on above: Order Comment: Name Collection Type:: Clean-Voided Midstream Performed By: #### C UU #### [place] [address] [place] Nitrite,Urine Negative Normal Negative [facility] Comment on above: Order Comment: Name Collection Type:: Clean-Voided Midstream Performed By: #### C UU #### [address] Occult Blood,Urine 3+ High Negative [facility] Comment on above: Order Comment: Name Collection Type:: Clean-Voided Midstream Performed By: #### C UU #### [address] pH (U) 8.0 [pH] Normal 5.0-9.0 [facility] Comment on above: Order Comment: Name Collection Type:: Clean-Voided Midstream Performed By: #### C UU #### [place] [address] [place] Protein (U) [Mass/Vol] 100 mg/dL High Negative [facility] Comment on above: Order Comment: Name Collection Type:: Clean-Voided Midstream Performed By: #### C UU #### [place] [address] [place] RBC,Urine Innumerable High 0-4 [facility] Comment on above: Order Comment: Name Collection Type:: Clean-Voided Midstream Performed By: #### C UU #### [place] [address] [place] Specificy [place],Urine 1.029 Normal 1.001-1.03 0 [facility] Comment on above: Order Comment: Name Collection Type:: Clean-Voided Midstream Performed By: #### C UU #### [place] [address] [place] Squamous Epithelial Cell,Urine 1 [HPF] Normal 0-2 [facility] Comment on above: Order Comment: Name Collection Type:: Clean-Voided Midstream Performed By: #### C UU #### [address] Urobilinogen,Urine 6 mg/dL High Normal [facility] Comment on above: Order Comment: Name Collection Type:: Clean-Voided Midstream Performed By: #### C UU #### [address] WBC,Urine 50 [HPF] High 0-4 [facility] Comment on above: Order Comment: Name Collection Type:: Clean-Voided Midstream Performed By: #### C UU #### [address] Drug Screen,Urineon 10-28-20 24 Amphetamine Screen,Urine Negative Normal Negative [facility] Comment on above: Performed By: #### C K, PT, BNP, PTT, CBC, BMP, HS TROP #### [address] Barbiturate Screen,Urine Negative Normal Negative [facility] Comment on above: Performed By: #### C K, PT, BNP, PTT, CBC, BMP, HS TROP #### [address] Benzodiazepines Screen,Urine Negative Normal Negative [facility] Comment on above: Performed By: #### C K, PT, BNP, PTT, CBC, BMP, HS TROP #### [address] Cannabinoid Screen,Urine Positive High Negative [facility] Comment on above: Result Comment: Thes e are unconfirmed results and should not be used for legal purposes. Drug Cut-Off Concentration: AMPH 1000 ng/mL NIKOLAS 200 ng/mL SHRAVAN 200 ng/mL COCM 300 ng/mL OP 300 ng/mL PCP 25 ng/mL THC 20 ng/mL PERFORMED BY: [place] [address] PATHOLOGIST STAGE TECHNICIAN IDANIA GODOY M.D. Performed By: #### C K, PT, BNP, PTT, CBC, BMP, HS TROP #### [facility] [address] Cocaine Screen,Urine Negative Normal Negative [facility] Comment on above: Performed By: #### C K, PT, BNP, PTT, CBC, BMP, HS TROP #### [facility] [address] Opiate Screen,Urine Negative Normal Negative [facility] Comment on above: Performed By: #### C K, PT, BNP, PTT, CBC, BMP, HS TROP #### [facility] [address] Phencyclidine Screen,Urine Negative Normal Negative [facility] Comment on above: Performed By: #### C K, PT, BNP, PTT, CBC, BMP, HS TROP #### [facility] [address] ECG 12 lead ECGon 10-28-2024 ECG 12 lead ECG [facility] [place] [address] [place] [address] Electrocardiograph Report Signed Patient: Pili Parikh MR#: [id number] [id number] : 2005 Acct:[id number] Age/Sex: 19 / F ADM Date: 10/28/24 Loc: ER Room: Type: [facility] ER Attending Dr: Ordering Provider: [...] sinus rhythm Confirmed by Robert BOLANOS DO ([id number]) on 10/28/2024 9:48:18 PM Referred By: Electronically Signed By: Robert BOLANOS DO Transcribed By: MUS Signed By Robert Bolanos DO 12/29/232147 Normal [facility] Eosinophils Auto (Bld) [#/Vo l]Ordered By: Rd Brown on 10-28-2024 Eosinophils (Bld) [#/Vol] Automated eosinophil count 0.0-0.45 [facility] Eosinophils/100 WBC Auto (Bl d)Ordered By: Rd Brown on 10-28-2024 Eosinophils/100 WBC (Bld) Automated eosinophil % . [facility] Epithelial cells.squamous [# /area] in Urine sediment by Automated countOrdered By: Rd Brown on 10-28-2024 Epithelial cells.squamous Auto (Urine sed) [#/Area] Epithelial cells.squamous [#/area] in Urine sediment by Automated count 0-2 [facility] Erythrocyte distribution wid th Auto (RBC) [Ratio]Ordered By: Rd Brown on 10-28-2024 Erythrocyte distribution width (RBC) [Ratio] Erythrocyte distribution width [Ratio] by Automated count 11.9-15.3 [facility] Erythrocytes [#/area] in Uri ne sediment by Automated countOrdered By: Rd Brown on 10-28-2024 RBC Auto (Urine sed) [#/Area] Erythrocytes [#/area] in Urine sediment by Automated count High 0-4 [facility] Globulin Calc (S) [Mass/Vol] Ordered By: Rd Brown on 10-28-2024 Globulin (S) [Mass/Vol] Serum globulin measurement by calculation (mass/volume) [facility] Glucose [Mass/volume] in Ser um or PlasmaOrdered By: Rd Brown on 10-28-2024 Glucose [Mass/Vol] Glucose [Mass/volume ] in Serum or Plasma 70-100 [facility] Comment on above: ADA recommended [...] [Mass/volume] in Urine by Test strip Normal [facility] HCG ( test) IA.rapi d Ql (U)Ordered By: Rd Brown on 10-28-2024 HCG ( test) Ql (U) Urine human chorionic gonadotropin (hCG) detection by immunoassay [facility] HCG,Urineon 10-28-2024 Beta HCG ( test) Ql (U) Negative Normal [facility] Comment on above: Order Comment: Name Collection Type:: Clean-Voided Midstream Result Comment: PERF ORMED BY: [place] [address] PATHOLOGIST STAGE TECHNICIAN IDANIA GODOY M.D. Performed By: #### C UU #### [address] Hematocrit Auto (Bld) [Volum e fraction]Ordered By: Rd Brown on 10-28-2024 Hematocrit (Bld) [Volume fraction] Hematocrit [Volume Fraction] of Blood by Automated count High 34.0-46.4 [facility] Hemoglobin Test strip Ql (U) Ordered By: Rd Brown on 10-28-2024 Hemoglobin Ql (U) Hemoglobin [Presence ] in Urine by Test strip High Negative [facility] Hemoglobin [Mass/volume] in BloodOrdered By: Rd Brown on 10-28-2024 Hemoglobin (Bld) [Mass/Vol] Hemoglobin [Mass/volume] in Blood High 11.8-15.4 [facility] Hepatic Panelon 10-28-2024 Albumin [Mass/Vol] 5.4 g/dL Normal 3.5-5.7 [facility] Comment on above: Performed By: #### C UU #### [address] Albumin/Globulin [Mass ratio] 1.5 {ratio} Normal [facility] Comment on above: Performed By: #### C UU #### [place] [address] [place] ALP [Catalytic activity/Vol] 78 U/L Normal 34-104 [facility] Comment on above: Performed By: #### C UU #### [address] ALT [Catalytic activity/Vol] 48 U/L Normal 7-52 [facility] Comment on above: Performed By: #### C UU #### [address] AST [Catalytic activity/Vol] 30 U/L Normal 13-39 [facility] Comment on above: Performed By: #### C UU #### [address] Bilirubin [Mass/Vol] 1.1 mg/dL High 0.3-1.0 [facility] Comment on above: Performed By: #### C UU #### [address] Bilirubin,Indirect 0.9 mg/dL Normal [facility] Comment on above: Performed By: #### C UU #### [address] Bilirubin.indirect [Mass/Vol] 0.20 mg/dL High 0.03-0.18 [facility] Comment on above: Performed By: #### C UU #### [address] Globulin (S) [Mass/Vol] 3.5 g/dL Normal [facility] Comment on above: Performed By: #### C UU #### [address] Protein [Mass/Vol] 8.9 g/dL Normal 6.4-8.9 [facility] Comment on above: Performed By: #### C UU #### [address] Hyaline casts [#/area] in Ur ine sediment by Automated countOrdered By: Rd Brown on 10-28-2024 Hyaline casts Auto (Urine sed) [#/Area] Hyaline casts [#/area] in Urine sediment by Automated count High 0-8 [facility] Ketones Test strip Ql (U)Ord ered By: Rd Brown on 10-28-2024 Ketones Ql (U) Ketones [Presence] i n Urine by Test strip High Negative [facility] Leukocyte esterase [Presence ] in Urine by Test stripOrdered By: Rd Brown on 10-28-2024 Leukocyte esterase Test strip Ql (U) Leukocyte esterase [Presence] in Urine by Test strip High Negative [facility] Leukocytes [#/area] in Urine sediment by Automated countOrdered By: Rd Brown on 10-28-2024 WBC Auto (Urine sed) [#/Area] Leukocytes [#/area] in Urine sediment by Automated count High 0-4 [facility] Leukocytes [#/volume] correc venkata for nucleated erythrocytes in Blood by Automated counOrdered By: Rd Brown on 10-28-2024 WBC corrected for nucl RBC Auto (Bld) [#/Vol] Leukocytes [#/volume] corrected for nucleated erythrocytes in Blood by Automated coun High 3.8-11.6 [facility] Lipaseon 10-28-2024 Lipase [Catalytic activity/Vol] 19.0 U/L Normal 11.0-82.0 [facility] Comment on above: Result Comment: PERF ORMED BY: [place] [address] PATHOLOGIST STAGE TECHNICIAN IDANIA GODOY M.D. Performed By: #### C UU #### [address] Lipase [Enzymatic activity/v olume] in Serum or PlasmaOrdered By: Rd Brown on 10-28-2024 Lipase [Catalytic activity/Vol] Lipase [Enzymatic activity/volume] in Serum or Plasma 11.0-82.0 [facility] Lymphocytes Auto (Bld) [#/Vo l]Ordered By: Rd Brown on 10-28-2024 Lymphocytes (Bld) [#/Vol] Lymphocytes [#/volume] in Blood by Automated count 1.00-4.8 [facility] Lymphocytes/100 WBC Auto (Bl d)Ordered By: Rd Brown on 10-28-2024 Lymphocytes/100 WBC (Bld) Lymphocytes/100 leukocytes in Blood by Automated count . [facility] MCH Auto (RBC) [Entitic mass ]Ordered By: Rd Brown on 10-28-2024 MCH (RBC) [Entitic mass] MCH [Entitic mass] by Automated count 24.7-34.3 [facility] MCHC Auto (RBC) [Mass/Vol]Or dered By: Rd Brown on 10-28-2024 MCHC (RBC) [Mass/Vol] MCHC [Mass/volume] by Automated count 32.0-35.0 [facility] MCV Auto (RBC) [Entitic vol] Ordered By: Rd Brown on 10-28-2024 MCV (RBC) [Entitic vol] MCV [Entitic volume] by Automated count 80-100 [facility] Monocyte distribution width [Entitic volume] in Blood by AutomatedOrdered By: Rd Brown on 10-28-2024 Monocyte distribution width Auto (Bld) [Entitic vol] Monocyte distribution width [Entitic volume] in Blood by Automated 0.00-20.00 [facility] Monocytes Auto (Bld) [#/Vol] Ordered By: Rd Brown on 10-28-2024 Monocytes (Bld) [#/Vol] Automated blood monocyte count High 0.0-0.8 [facility] Monocytes/100 WBC Auto (Bld) Ordered By: Rd Brown on 10-28-2024 Monocytes/100 WBC (Bld) Automated monocyte % . [facility] Mucus [Presence] in Urine by AutomatedOrdered By: Rd Brown on 10-28-2024 Mucus Auto Ql (U) Mucus [Presence] in Urine by Automated Abnormal [facility] Neutrophils Auto (Bld) [#/Vo l]Ordered By: Rd Brown on 10-28-2024 Neutrophils (Bld) [#/Vol] Neutrophils [#/volume] in Blood by Automated count High 1.8-7.7 [facility] Neutrophils/100 WBC Auto (Bl d)Ordered By: Rd Brown on 10-28-2024 Neutrophils/100 WBC (Bld) Automated neutrophil % . [facility] Nitrite Test strip Ql (U)Ord ered By: Rd Brown on 10-28-2024 Nitrite Ql (U) Nitrite [Presence] i n Urine by Test strip Negative [facility] No Panel InformationOrdered By: Rd Brown on 10-28-2024 Estimated GFR (CKD-EPI) > 60.0 mL/Min [facility] Creatinine Clearance (Chem 104.62 [facility] Nucleated erythrocytes [Pres ence] in Blood by Automated countOrdered By: Rd Brown on 10-28-2024 Nucleated RBC Auto Ql (Bld) Nucleated erythrocytes [Presence] in Blood by Automated count 0-0.5 [facility] Opiates [Presence] in Urine by Screen methodOrdered By: Rd Brown on 10-28-2024 Opiates Screen Ql (U) Opiates [Presence] in Urine by Screen method Negative [facility] Phencyclidine Screen Ql (U)O rdered By: Rd Brown on 10-28-2024 Phencyclidine Ql (U) Phencyclidine [Pres ence] in Urine by Screen method Negative [facility] Platelet mean volume Auto (B ld) [Entitic vol]Ordered By: Rd Brown on 10-28-2024 Platelet mean volume (Bld) [Entitic vol] Platelet mean volume [Entitic volume] in Blood by Automated count 6.3-10.7 [facility] Platelets Auto (Bld) [#/Vol] Ordered By: Rd Brown on 10-28-2024 Platelets (Bld) [#/Vol] Platelets [#/volume] in Blood by Automated count 150-450 [facility] Potassiumon 10-28-2024 Potassium [Moles/Vol] 2.9 mmol/L Off scale low 3.5-5.1 [facility] Comment on above: Result Comment: Crit ical Result Called to and read back by: RYLAN BELL at: 10/28/2024 23:09:11 by:MO PERFORMED BY: [place] [address] PATHOLOGIST STAGE TECHNICIAN IDANIA GODOY M.D. Performed By: #### C UU #### [address] Potassium [Moles/volume] in Serum or PlasmaOrdered By: Rd Brown on 10-28-2024 Potassium [Moles/Vol] Potassium [Moles/v olume] in Serum or Plasma Critically low 3.5-5.1 [facility] Comment on above: Critical Result Call ed to and read back by: RYLAN BELL at: 10/28/2024 23:09:11 by:MO Protein Test strip (U) [Mass /Vol]Ordered By: Rd Brown on 10-28-2024 Protein (U) [Mass/Vol] Protein [Mass/vol ume] in Urine by Test strip High Negative [facility] Protein [Mass/volume] in Ser um or PlasmaOrdered By: Rd Brown on 10-28-2024 Protein [Mass/Vol] Protein [Mass/volume ] in Serum or Plasma 6.4-8.9 [facility] RBC Auto (Bld) [#/Vol]Ordere d By: Rd Brown on 10-28-2024 RBC (Bld) [#/Vol] Erythrocytes [#/volu me] in Blood by Automated count High 3.60-5.00 [facility] Serum or plasma albumin/glob ulin mass ratioOrdered By: Rd Brown on 10-28-2024 Albumin/Globulin [Mass ratio] Serum or plasma albumin/globulin mass ratio [facility] Serum or plasma anion gap de terminationOrdered By: Rd Brown on 10-28-2024 Anion gap [Moles/Vol] Serum or plasma an ion gap determination High 6.0-15.0 [facility] Serum or plasma non-glucuron idated bilirubin measurement (mass/volume)Ordered By: Rd Brown on 10-28-2024 Bilirubin.indirect [Mass/Vol] Serum or plasma non-glucuronidated bilirubin measurement (mass/volume) [facility] Sodium [Moles/volume] in Ser um or PlasmaOrdered By: Rd Brown on 10-28-2024 Sodium [Moles/Vol] Sodium [Moles/volume ] in Serum or Plasma 136-145 [facility] Specific gravity Test strip (U) [Rel density]Ordered By: Rd Brown on 10-28-2024 Specific gravity (U) [Rel density] Specific gravity of Urine by Test strip 1.001-1.03 0 [facility] Urea nitrogen [Mass/volume] in Serum or PlasmaOrdered By: Rd Brown on 10-28-2024 Urea nitrogen [Mass/Vol] Urea nitrogen [Mass/volume] in Serum or Plasma 7-25 [facility] Urine Cultureon 10-28-2024 Bacteria identified Cx Nom (U) 75,000 colonies/ml mixed bacterial skin contaminants 2 Days PERFORMED BY: [facility] [address] [place] [address] PATHOLOGIST STAGE TECHNICIAN IDANIA GODOY M.D. Normal [facility] Comment on above: Performed By: #### C UU #### [address] Urine cultureOrdered By: Mj Brown on 10-28-2024 Bacteria identified Cx Nom (U) Urine culture [facility] Urobilinogen Test strip (U) [Mass/Vol]Ordered By: Rd Brown on 10-28-2024 Urobilinogen (U) [Mass/Vol] Urobilinogen [Mass/volume] in Urine by Test strip High Normal [facility] WBC Auto (Bld) [#/Vol]Ordere d By: Rd Brown on 10-28-2024 WBC (Bld) [#/Vol] Leukocytes [#/volume ] in Blood by Automated count High 3.8-11.6 [facility] pH Test strip (U)Ordered By: Rd Brown on 10-28-2024 pH (U) pH of Urine by Test strip 5.0-9.0 [facility] Activated partial thrombopla stin time (aPTT) in platelet poor plasma by coagulation aOrdered By: Ania Watson on 08-03-2024 aPTT Coag (PPP) [Time] 24.7 s Low 25.1-36.5 [facility] Comment on above: A hematocrit value g reater than 55% may lead to inaccurate results in coagulation testing. Patients having hematocrit values >55% require a special collection tube for coagulation studies. Please contact the laboratory at [phone] for redraw instructions. BNP ser/plasOrdered By: Reji Watson on 08-03-2024 Natriuretic peptide B (Bld) [Mass/Vol] 19.0 pg/mL Normal 5-100 [facility] Comment on above: Order Comment: PT WA NTS TO WAIT UNTIL SHE IS TAKEN BACK INTO ER AND THEY START A IV ON HER,KAH, 2100 Result Comment: PERF ORMED BY: [facility] [address] [place] [address] PATHOLOGIST STAGE TECHNICIAN JIANLAN SUN M.D. Performed By: #### C K, PT, BNP, PTT, CBC, BMP, HS TROP #### [facility] [address] Basic Metabolic Panelon Creatinine Clr Calc Pharmacy 154.09 Normal [facility] Comment on above: Order Comment: PT WA NTS TO WAIT UNTIL SHE IS TAKEN BACK INTO ER AND THEY START A IV ON 2099 Result Comment: PERF ORMED BY: [place] [address] PATHOLOGIST STAGE TECHNICIAN NAY SARKAR M.D. Performed By: #### C K, PT, BNP, PTT, CBC, BMP, HS TROP #### [address] GFR/1.73 sq M.predicted MDRD (S/P/Bld) [Vol rate/Area] mL/min/{1.73_m2} Normal [facility] Comment on above: Order Comment: PT WA NTS TO WAIT UNTIL SHE IS TAKEN BACK INTO ER AND THEY START A IV ON 2099 Performed By: #### C K, PT, BNP, PTT, CBC, BMP, HS TROP #### [address] Calcium [Mass/volume] in Ser um or PlasmaOrdered By: Ania Watson on 08-03-2024 Calcium [Mass/Vol] 9.6 mg/dL Normal 8.6-10.3 [facility] Comment on above: Order Comment: PT WA NTS TO WAIT UNTIL SHE IS TAKEN BACK INTO ER AND THEY START A IV ON HER2099 Performed By: #### C K, PT, BNP, PTT, CBC, BMP, HS TROP #### [facility] [address] [place] [address] [place] Carbon dioxide, total [Moles /volume] in Serum or PlasmaOrdered By: Ania Watson on 08-03-2024 CO2 [Moles/Vol] 18.5 mmol/L Low 21.0-31.0 [facility] Comment on above: Order Comment: PT WA NTS TO WAIT UNTIL SHE IS TAKEN BACK INTO ER AND THEY START A IV ON 2099 Performed By: #### C K, PT, BNP, PTT, CBC, BMP, HS TROP #### [facility] [address] Chloride [Moles/volume] in [place] or PlasmaOrdered By: Ania Watson on 08-03-2024 Chloride [Moles/Vol] 99 mmol/L Normal 98-107 [facility] Comment on above: Order Comment: PT WA NTS TO WAIT UNTIL SHE IS TAKEN BACK INTO ER AND THEY START A IV ON HER2099 Performed By: #### C K, PT, BNP, PTT, CBC, BMP, HS TROP #### [facility] [address] Complete Blood Count Auto Di ffon 08-03-2024 Basophils (Bld) [#/Vol] 0.1 10*3/uL Normal 0.0-0.2 [facility] Comment on above: Order Comment: PT WA NTS TO WAIT UNTIL SHE IS TAKEN BACK INTO ER AND THEY START A IV ON HER2099 Result Comment: PERF ORMED BY: [place] [address] PATHOLOGIST STAGE TECHNICIAN NAY SARKAR M.D. Performed By: #### C K, PT, BNP, PTT, CBC, BMP, HS TROP #### [facility] [address] [place] [address] Basophils/100 WBC (Bld) 0.4 % Normal . [facility] Comment on above: Order Comment: PT WA NTS TO WAIT UNTIL SHE IS TAKEN BACK INTO ER AND THEY START A IV ON HER2099 Performed By: #### C K, PT, BNP, PTT, CBC, BMP, HS TROP #### [facility] [address] Eosinophils (Bld) [#/Vol] 0.2 10*3/uL Normal 0.0-0.45 [facility] Comment on above: Order Comment: PT WA NTS TO WAIT UNTIL SHE IS TAKEN BACK INTO ER AND THEY START A IV ON HER2099 Performed By: #### C K, PT, BNP, PTT, CBC, BMP, HS TROP #### [address] Eosinophils/100 WBC (Bld) 0.9 % Normal . [facility] Comment on above: Order Comment: PT WA NTS TO WAIT UNTIL SHE IS TAKEN BACK INTO ER AND THEY START A IV ON HER,, 2099 Performed By: #### C K, PT, BNP, PTT, CBC, BMP, HS TROP #### [address] Erythrocyte distribution width (RBC) [Ratio] 13.2 % Normal 11.9-15.3 [facility] Comment on above: Order Comment: PT WA NTS TO WAIT UNTIL SHE IS TAKEN BACK INTO ER AND THEY START A IV ON HER,2099 Performed By: #### C K, PT, BNP, PTT, CBC, BMP, HS TROP #### [address] Hematocrit (Bld) [Volume fraction] 43.6 % Normal 34.0-46.4 [facility] Comment on above: Order Comment: PT WA NTS TO WAIT UNTIL SHE IS TAKEN BACK INTO ER AND THEY START A IV ON HER,2099 Performed By: #### C K, PT, BNP, PTT, CBC, BMP, HS TROP #### [address] Hemoglobin (Bld) [Mass/Vol] 14.8 g/dL Normal 11.8-15.4 [facility] Comment on above: Order Comment: PT WA NTS TO WAIT UNTIL SHE IS TAKEN BACK INTO ER AND THEY START A IV ON HER,, 2099 Performed By: #### C K, PT, BNP, PTT, CBC, BMP, HS TROP #### [address] Lymphocytes (Bld) [#/Vol] 2.5 10*3/uL Normal 1.00-4.8 [facility] Comment on above: Order Comment: PT WA NTS TO WAIT UNTIL SHE IS TAKEN BACK INTO ER AND THEY START A IV ON HER,2099 Performed By: #### C K, PT, BNP, PTT, CBC, BMP, HS TROP #### [address] Lymphocytes/100 WBC (Bld) 13.0 % Normal . [facility] Comment on above: Order Comment: PT WA NTS TO WAIT UNTIL SHE IS TAKEN BACK INTO ER AND THEY START A IV ON HER,, 2099 Performed By: #### C K, PT, BNP, PTT, CBC, BMP, HS TROP #### [address] MCH (RBC) [Entitic mass] 28.4 pg Normal 24.7-34.3 [facility] Comment on above: Order Comment: PT WA NTS TO WAIT UNTIL SHE IS TAKEN BACK INTO ER AND THEY START A IV ON HER,, 2099 Performed By: #### C K, PT, BNP, PTT, CBC, BMP, HS TROP #### [address] MCV (RBC) [Entitic vol] 83.8 fL Normal 80-100 [facility] Comment on above: Order Comment: PT WA NTS TO WAIT UNTIL SHE IS TAKEN BACK INTO ER AND THEY START A IV ON HER,, 2099 Performed By: #### C K, PT, BNP, PTT, CBC, BMP, HS TROP #### [address] Mean Corpuscular HGB Conc 33.9 g/dL Normal 32.0-35.0 [facility] Comment on above: Order Comment: PT WA NTS TO WAIT UNTIL SHE IS TAKEN BACK INTO ER AND THEY START A IV ON HER,, 2099 Performed By: #### C K, PT, BNP, PTT, CBC, BMP, HS TROP #### [address] Monocytes (Bld) [#/Vol] 1.6 10*3/uL High 0.0-0.8 [facility] Comment on above: Order Comment: PT WA NTS TO WAIT UNTIL SHE IS TAKEN BACK INTO ER AND THEY START A IV ON HER,, 2099 Performed By: #### C K, PT, BNP, PTT, CBC, BMP, HS TROP #### [address] [place] [address] [place] Monocytes/100 WBC (Bld) 18.96 % Normal 0.00-20.00 [facility] Comment on above: Order Comment: PT WA NTS TO WAIT UNTIL SHE IS TAKEN BACK INTO ER AND THEY START A IV ON HER,, 2099 Performed By: #### C K, PT, BNP, PTT, CBC, BMP, HS TROP #### [facility] [address] [place] [address] [place] Monocytes/100 WBC (Bld) 8.1 % Normal . [facility] Comment on above: Order Comment: PT WA NTS TO WAIT UNTIL SHE IS TAKEN BACK INTO ER AND THEY START A IV ON HER,, 2099 Performed By: #### C K, PT, BNP, PTT, CBC, BMP, HS TROP #### [place] [address] [place] Neutrophils (Bld) [#/Vol] 15.0 10*3/uL High 1.8-7.7 [facility] Comment on above: Order Comment: PT WA NTS TO WAIT UNTIL SHE IS TAKEN BACK INTO ER AND THEY START A IV ON HER,, 2099 Performed By: #### C K, PT, BNP, PTT, CBC, BMP, HS TROP #### [place] [address] [place] Neutrophils/100 WBC (Bld) 77.6 % Normal . [facility] Comment on above: Order Comment: PT WA NTS TO WAIT UNTIL SHE IS TAKEN BACK INTO ER AND THEY START A IV ON HER,, 2099 Performed By: #### C K, PT, BNP, PTT, CBC, BMP, HS TROP #### [place] [address] [place] NRBC% 0.3 /100{WBC} Normal 0-0.5 [facility] Comment on above: Order Comment: PT WA NTS TO WAIT UNTIL SHE IS TAKEN BACK INTO ER AND THEY START A IV ON HER,, 2099 Performed By: #### C K, PT, BNP, PTT, CBC, BMP, HS TROP #### [facility] [address] [place] [address] [place] Platelet mean volume (Bld) [Entitic vol] 8.6 fL Normal 6.3-10.7 [facility] Comment on above: Order Comment: PT WA NTS TO WAIT UNTIL SHE IS TAKEN BACK INTO ER AND THEY START A IV ON HER,2099 Performed By: #### C K, PT, BNP, PTT, CBC, BMP, HS TROP #### [facility] [address] Platelets (Bld) [#/Vol] 282 10*3/uL Normal 150-450 [facility] Comment on above: Order Comment: PT WA NTS TO WAIT UNTIL SHE IS TAKEN BACK INTO ER AND THEY START A IV ON HER,2099 Performed By: #### C K, PT, BNP, PTT, CBC, BMP, HS TROP #### [facility] [address] [place] [address] RBC (Bld) [#/Vol] 5.20 10*6/uL High 3.60-5.00 [facility] Comment on above: Order Comment: PT WA NTS TO WAIT UNTIL SHE IS TAKEN BACK INTO ER AND THEY START A IV ON HER,2099 Performed By: #### C K, PT, BNP, PTT, CBC, BMP, HS TROP #### [facility] [address] [place] [address] WBC (Bld) [#/Vol] 19.4 10*3/uL High 3.8-11.6 [facility] Comment on above: Order Comment: PT WA NTS TO WAIT UNTIL SHE IS TAKEN BACK INTO ER AND THEY START A IV ON HER,, 2099 Performed By: #### C K, PT, BNP, PTT, CBC, BMP, HS TROP #### [address] Creatine kinase [Enzymatic a ctivity/volume] in Serum or PlasmaOrdered By: Ania Watson on 08-03-2024 CK [Catalytic activity/Vol] 33 U/L Normal 30-223 [facility] Comment on above: Order Comment: PT WA NTS TO WAIT UNTIL SHE IS TAKEN BACK INTO ER AND THEY START A IV ON HER,, 2099 Performed By: #### C K, PT, BNP, PTT, CBC, BMP, HS TROP #### [facility] [address] [place] [id number] [facility] Creatinine [Mass/volume] in Serum or PlasmaOrdered By: Ania Watson on 08-03-2024 Creatinine [Mass/Vol] 0.61 mg/dL Normal 0.60-1.20 [facility] Comment on above: Order Comment: PT WA NTS TO WAIT UNTIL SHE IS TAKEN BACK INTO ER AND THEY START A IV ON HER,KAH, 2100 Performed By: #### C K, PT, BNP, PTT, CBC, BMP, HS TROP #### [facility] [address] [place] [id number] [facility] ECG 12 lead ECGon 08-03-2024 ECG 12 lead ECG [facility] [place] [address] [place] [address] Electrocardiograph Report Signed Patient: Pili Parikh MR#: [id number] : 2005 Acct:[id number] Age/Sex: 19 / F ADM Date: 08/03/24 Loc: ER Room: Type: [facility] ER Attending Dr: Ordering Provider: [...] wave abnormality Confirmed by Ania Watson MD ([id number]) on 08/04/2024 1:34:37 AM Referred By: Electronically Signed By: Ania Watson MD Transcribed By: MUS Signed By Ania Watson MD 06/20 0134 Normal [facility] Glucose [Mass/volume] in Ser um or PlasmaOrdered By: Ania Watson on 08-03-2024 Glucose [Mass/Vol] 91 mg/dL Normal 70-100 [facility] Comment on above: ADA recommended refe rence rangeRandom Glucose Reference Range is dependent on time and content of last meal. Glucose of more than 200 mg/dL in a nonstressed, ambulatory subject supports the diagnosis of Diabetes Mellitus. Order Comment: PT WA NTS TO WAIT UNTIL SHE IS TAKEN BACK INTO ER AND THEY START A IV ON HER,2099 Result Comment: [place] Glucose Reference Range is dependent on time and content of last meal. Glucose of more than 200 mg/dL in a nonstressed, ambulatory subject supports the diagnosis of Diabetes Mellitus. ADA recommended reference range Performed By: #### C K, PT, BNP, PTT, CBC, BMP, HS TROP #### [facility] [address] [place] [address] [facility] INR in Platelet poor plasma by Coagulation assayOrdered By: Ania Watson on 08-03-2024 INR Coag (PPP) [Relative time] 1.2 {INR} Normal [facility] Comment on above: INR Therapeutic [...] BNP, PTT, CBC, BMP, HS TROP #### [facility] [address] [place] [address] [facility] No Panel InformationOrdered By: Ania Watson on 08-03-2024 Estimated GFR (CKD-EPI) > 60.0 mL/Min [facility] Creatinine Clearance (Chem 154.09 [facility] Partial Thromboplastin Timeo n 08-03-2024 aPTT Coag (Bld) [Time] 24.7 s Low 25.1-36.5 [facility] Comment on above: Order Comment: PT WA NTS TO WAIT UNTIL SHE IS TAKEN BACK INTO ER AND THEY START A IV ON HER,, 2099 Result Comment: A he matocrit value greater than 55% may lead to inaccurate results in coagulation testing. Patients having hematocrit values >55% require a special collection tube for coagulation studies. Please contact the laboratory at [phone] for redraw instructions. PERFORMED BY: [place] [address] PATHOLOGIST STAGE TECHNICIAN NAY SARKAR M.D. Performed By: #### C K, PT, BNP, PTT, CBC, BMP, HS TROP #### [facility] [address] [place], [place] [id number] [facility] Potassium [Moles/volume] in Serum or PlasmaOrdered [...] BNP, PTT, CBC, BMP, HS TROP #### [facility] [address] [place] [address] [facility] Prothrombin time (PT)Ordered By: Ania Watson on 08-03-2024 PT Coag (PPP) [Time] 13.3 s High 9.0-12.9 [facility] Comment on above: A hematocrit value g reater than 55% may lead to inaccurate results in coagulation testing. Patients having hematocrit values >55% require a special collection tube for coagulation studies. Please contact the laboratory at [phone] for redraw instructions. Order Comment: PT WA NTS TO WAIT UNTIL SHE IS TAKEN BACK INTO ER AND THEY START A IV ON HER,KAH, 2100 Result Comment: A he matocrit value greater than 55% may lead to inaccurate results in coagulation testing. Patients having hematocrit values >55% require a special collection tube for coagulation studies. Please contact the laboratory at [phone] for redraw instructions. Performed By: #### C K, PT, BNP, PTT, CBC, BMP, HS TROP #### [facility] [address] Serum or plasma anion gap de terminationOrdered By: Ania Watson on 08-03-2024 Anion gap [Moles/Vol] 20.0 mmol/L High 6.0-15.0 [facility] Comment on above: Order Comment: PT WA NTS TO WAIT UNTIL SHE IS TAKEN BACK INTO ER AND THEY START A IV ON HER,2099 Performed By: #### C K, PT, BNP, PTT, CBC, BMP, HS TROP #### [facility] [address] [place] [address] Sodium [Moles/volume] in Ser um or PlasmaOrdered By: Ania Watson on 08-03-2024 Sodium [Moles/Vol] 134 mmol/L Low 136-145 [facility] Comment on above: Order Comment: PT WA NTS TO WAIT UNTIL SHE IS TAKEN BACK INTO ER AND THEY START A IV ON HER,2099 Performed By: #### C K, PT, BNP, PTT, CBC, BMP, HS TROP #### [facility] [address] [place] [address] Troponin I High Sensitivityo n 08-03-2024 Troponin I High Sensitivity 7.0 pg/mL Normal 0.0-15.0 [facility] Comment on above: Order Comment: PT WA NTS TO WAIT UNTIL SHE IS TAKEN BACK INTO ER AND THEY START A IV ON HER,2099 Result Comment: PERF ORMED BY: [address] [place] [address] PATHOLOGIST STAGE TECHNICIAN NAY SARKAR M.D. Performed By: #### C K, PT, BNP, PTT, CBC, BMP, HS TROP #### [address] Troponin I.cardiac [Mass/vol ume] in Serum or Plasma by Detection limit <= 0.01 ng/Ordered By: Ania Watson on 08-03-2024 Troponin I.cardiac DL <= 0.01 ng/mL [Mass/Vol] 7.0 pg/mL 0.0-15.0 [facility] Urea nitrogen [Mass/volume] in Serum or PlasmaOrdered By: Ania Watson on 08-03-2024 Urea nitrogen [Mass/Vol] 20 mg/dL Normal 7-25 [facility] Comment on above: Order Comment: PT WA NTS TO WAIT UNTIL SHE IS TAKEN BACK INTO ER AND THEY START A IV ON HER,KAH, 2100 Performed By: #### C K, PT, BNP, PTT, CBC, BMP, HS TROP #### [facility] [address] B hCG Qualon 08-01-2024 Beta HCG ( test) Ql Negative [facility] Comment on above: Performed By: #### 2 [id number] #### [facility] [address] [place] [address] BMPon 08-01-2024 Anion gap [Moles/Vol] 14 mmol/L Normal 6-16 [facility] Comment on above: Performed By: #### 2 038394 #### [facility] [address] [place] [address] Calcium [Mass/Vol] 9.7 mg/dL Normal 8.9-11.1 [facility] Comment on above: Performed By: #### 2 [id number] #### [facility] [address] [place] [address] Chloride [Moles/Vol] 102 mmol/L Normal 101-111 [facility] Comment on above: Performed By: #### 2 472325 #### [facility] [address] [place] [address] CO2 [Moles/Vol] 24 mmol/L Normal 21-31 [facility] Comment on above: Performed By: #### 2 629590 #### [facility] [address] [place] [address] Creatinine [Mass/Vol] 0.7 mg/dL Normal 0.5-1.3 [facility] Comment on above: Performed By: #### 2 912296 #### [facility] [address] [place] [address] Glucose [Mass/Vol] 96 mg/dL Normal 55-199 [facility] Comment on above: Performed By: #### 2 886407 #### [facility] [address] [place] [address] Potassium [Moles/Vol] 3.3 mmol/L Low 3.5-5.3 [facility] Comment on above: Performed By: #### 2 573470 #### [facility] [address] [place] [address] Sodium [Moles/Vol] 137 mmol/L Normal 135-145 [facility] Comment on above: Performed By: #### 2 455686 #### [facility] [address] [place] [address] Urea nitrogen [Mass/Vol] 18 mg/dL Normal 5-21 [facility] Comment on above: Performed By: #### 2 239206 #### [facility] [address] [place] [address] Urea nitrogen/Creatinine [Mass ratio] 26 No Units High 10-20 [facility] Comment on above: Performed By: #### 2 345940 #### [facility] [address] [place] [address] CBC w/ Auto Diffon 4 Basophils/100 WBC (Bld) 0.3 % Normal 0.0-2.0 [facility] Comment on above: Performed By: #### 2 996177 #### [facility] [address] [place] [address] Basophils/Leukocytes Auto (Bld) [Pure # fraction] 0.1 E9/L Normal 0.0-0.2 [facility] Comment on above: Performed By: #### 2 099565 #### [facility] [address] [place] [address] Eosinophils (Bld) [#/Vol] 0.1 E9/L Normal 0.0-0.5 [facility] Comment on above: Performed By: #### 2 128661 #### [facility] [address] [place] [address] Eosinophils/100 WBC (Bld) 0.4 % Normal 0.0-8.0 [facility] Comment on above: Performed By: #### 2 258011 #### [facility] [address] [place] [address] Erythrocyte distribution width (RBC) [Ratio] 13.3 % Normal 10.9-14.2 [facility] Comment on above: Performed By: #### 2 729655 #### [facility] [address] [place] [address] Hematocrit (Bld) [Volume fraction] 43.9 % Normal 34.0-46.0 [facility] Comment on above: Performed By: #### 2 887739 #### [facility] [address] [place] [address] Hemoglobin (Bld) [Mass/Vol] 14.5 g/dL Normal 12.0-16.0 [facility] Comment on above: Performed By: #### 2 870569 #### [facility] [address] [place] [address] Lymphocytes (Bld) [#/Vol] 2.3 E9/L Normal 1.0-4.0 [facility] Comment on above: Performed By: #### 2 020960 #### [facility] [address] [place] [address] Lymphocytes/100 WBC (Bld) 13.7 % Low 14.0-50.0 [facility] Comment on above: Performed By: #### 2 472408 #### [facility] [address] [place] [address] MCH (RBC) [Entitic mass] 28.3 pg Normal 27.0-34.0 [facility] Comment on above: Performed By: #### 2 060353 #### [facility] [address] [place] [address] MCHC (RBC) [Mass/Vol] 33.0 g/dL Normal 31.4-36.0 [facility] Comment on above: Performed By: #### 2 261579 #### [facility] [address] [place] [address] MCV (RBC) [Entitic vol] 85.8 fL Normal 80.0-100.0 [facility] Comment on above: Performed By: #### 2 297859 #### [facility] [address] [place] [address] Monocytes (Bld) [#/Vol] 1.2 E9/L High 0.2-1.0 [facility] Comment on above: Performed By: #### 2 744106 #### [facility] [address] [place] [address] Neutrophils (Bld) [#/Vol] 13.1 E9/L High 2.0-7.5 [facility] Comment on above: Performed By: #### 2 733444 #### [facility] [address] [place] [address] Neutrophils/100 WBC (Bld) 78.5 % High 36.0-75.0 [facility] Comment on above: Performed By: #### 2 477160 #### [facility] [address] [place] [address] Platelet mean volume (Bld) [Entitic vol] 8.2 fL Normal 6.4-10.8 [facility] Comment on above: Performed By: #### 2 564547 #### [facility] [address] [place] [address] Platelets (Bld) [#/Vol] 246.0 E9/L Normal 150.0-500. 0 [facility] Comment on above: Performed By: #### 2 621649 #### [facility] [address] [place] [address] RBC (Bld) [#/Vol] 5.1 E12/L Normal 4.3-5.9 [facility] Comment on above: Performed By: #### 2 425970 #### [facility] [address] [place] [address] WBC corrected for nucl RBC Auto (Bld) [#/Vol] 16.7 E9/L High 4.0-11.0 [facility] Comment on above: Result Comment: Sarahi pheral smear review performed. Performed By: #### 2 551292 #### [facility] [address] [place] [address] ED Clinical Summaryon 2023 ED Clinical Summary ED Clinical Summary [address] [address] ED Clinical Summary Person Information Name: PILI [...] 12:09:48 08/01/2024 12:09:48 08/01/2024 12:09:48 ADDRESS: [address] [facility] [id number] PHYS DOC NOTES: MEDICAL INFORMATION: Prescriptions Given: New Medications [facility]/pharmacy #[id number], [address], [place] [id number], [phone] potassium chloride (potassium chloride 20 mEq ER [...] Follow up: With: Address: When: MODESTA CHAND [address] [place] [phone] Business (1) In 3 days 08/04/2024 Comments: Make sure to fill the prescriptions that was prescribed from [facility]. Fill the new prescription for potassium. Follow-up with your primary doctor as discussed. Return to the emergency room if your vomiting recurs, abdominal pain recurs or any new symptoms. DIAGNOSIS: 1:Vomiting and diarrhea; 2:Hypokalemia; 3:Leukocytosis; Diarrhea, unspecified [facility] ED Note-Physicianon 08-01-20 ED Note-Physician ED Note-Physician Basic Information Time Seen: August Bermudez M.D. 08/01/2024 09:27 Chief Complaint just left [place] [facility], seen multiple times for n/v lightheaded. hx cyclic vomiting, state its not that. has medication at [facility] but wanted to come here [...] contact. The patient was at [facility] and they did send medication to [facility] however she feels she is [...] and Complexity of Problems Differential Diagnosis: [] [facility] Data External documents reviewed: [] My [...] day(s), # 4 tab(s), Refills(s) 0, Pharmacy: [facility]/pharmacy #[id number], 157, cm, 08/01/24 9:34:00 [...] Disposition Dis (more content not included)... [facility] Comment on above: Result Comment: Elec tronically Signed By: August Bermudez M.D.\.br\Date and Time Signed: 08/01/24 11:58 EDT ED Patient Summaryon 024 ED Patient Summary ED Patient Summary [place] [id number] Patient Discharge Instructions Person Information Name: PILI PARIKH Age: 19 Years Arrival Date: 08/01/2024 09:23:00 Discharge Diagnosis: 1:Vomiting and diarrhea; 2:Hypokalemia; 3:Leukocytosis; Diarrhea, unspecified Primary Care Physician: MODESTA CHAND CNP Provider Information Primary Provider: August Bermudez M.D. [facility]:None The exam and treatment you received in the Emergency Department were for an urgent problem and are not intended as complete care. 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 If your symptoms [...] With: Address: When: MODESTA CHAND [address] [place] [phone] Business (1) In 3 days 08/04/2024 Comments: Make sure to fill the prescriptions that was prescribed from [facility]. Fill the new prescription for potassium. Follow-up [...] opioids can be used to help relieve ncehhnro-hb-tpakfa pain and are often prescribed following a [...] the to (more content not included)... [facility] Hep Func Panelon 08-01-2024 Albumin [Mass/Vol] 5.1 g/dL High 3.3-5.0 [facility] Comment on above: Performed By: #### 2 [id number] #### [facility] [address] [place] [address] Albumin/Globulin (S) [Mass conc ratio] 1.7 Normal 1.1-2.2 [facility] Comment on above: Performed By: #### 2 972025 #### [facility] [address] [place] [address] ALP [Catalytic activity/Vol] 75 Int._Unit/L Normal 21-98 [facility] Comment on above: Performed By: #### 2 579863 #### [facility] [address] [place] [address] ALT No additional P-5'-P [Catalytic activity/Vol] 45 Int._Unit/L Normal 6-46 [facility] Comment on above: Performed By: #### 2 845642 #### [facility] [address] [place] [address] AST [Catalytic activity/Vol] 25 Int._Unit/L Normal 5-43 [facility] Comment on above: Performed By: #### 2 350326 #### [facility] [address] [place] [address] Bilirubin [Mass/Vol] 0.9 mg/dL Normal 0.0-1.1 [facility] Comment on above: Performed By: #### 2 026785 #### [facility] [address] [place] [address] Bilirubin.direct [Mass/Vol] 0.1 mg/dL Normal 0.0-0.4 [facility] Comment on above: Performed By: #### 2 251586 #### [facility] [address] [place] [address] Bilirubin.indirect [Mass or moles/Vol] 0.8 mg/dL Normal 0.1-0.9 [facility] Comment on above: Performed By: #### 2 656807 #### [facility] [address] [place] [address] Globulin (S) [Mass/Vol] 3.0 g/dL Normal 1.4-4.0 [facility] Comment on above: Performed By: #### 2 196905 #### [facility] [address] [place] [address] Protein [Mass/Vol] 8.1 g/dL High 6.0-7.8 [facility] Comment on above: Performed By: #### 2 297383 #### [facility] [address] [place] [address] Lipase Levelon 08-01-2024 Lipase [Catalytic activity/Vol] 27 U/L Normal 13-58 [facility] Comment on above: Performed By: #### 2 540260 #### [facility] [address] [place] [address] Magnesiumon 08-01-2024 Magnesium [Mass/Vol] 2.2 mg/dL Normal 1.3-2.4 [facility] Comment on above: Performed By: #### 2 246830 #### [facility] [address] [place] [address] PT & PTTon 08-01-2024 aPTT Coag (PPP) [Time] 31.2 second(s) Normal 25.1-36.5 [facility] Comment on above: Result Comment: [...] the same coagulation reagent and instrumentation as [facility]. Currently there are no coagulation studies available worldwide for children to 14 days, and no normal ranges. Heparin therapeutic range (represented by Anti-Factor Xa activity of 0.2 - 0.4 U/mL) corresponds to PTT of 56.6 - 109.0 sec. Performed By: #### 1 [id number] #### [facility] [address] [place] [address] INR Coag (PPP) [Relative time] 1.11 {INR} Invalid Interpretation Code [facility] Comment on above: Result Comment: INR results are specifically intended to assess patients stabilized on long-term Anticoagulation therapy suggested INR?s ?Less Intensive Anticoagulation? 2.0 ? 3.0 Conventional Range 3.0 ? 4.5 Performed By: #### 1 [id number] #### [facility] [address] [place] [address] PT Coag (PPP) [Time] 12.5 second(s) Normal 9.4-12.5 [facility] Comment on above: Result Comment: [...] the same coagulation reagent and instrumentation as [facility]. Currently there are no coagulation studies available worldwide for children to 14 days, and no normal ranges. Performed By: #### 1 [id number] #### [facility] [address] [place] [address] Troponin 0 Hr.on 08-01-2024 Troponin HS 5.20 pg/mL Low 10.10-27.1 0 [facility] Comment on above: Result Comment: The 95% CI (Confidence Interval) PPV (Positive Predictive Value) for myocardial infarction in females is 38 pg/mL, in males 51 pg/mL. The results should be used in conjunction with clinical conditions of myocardial infarction. (Access High Sensitivity Troponin I Instructions For Use, Sugar Sundar, June 2018) Performed By: #### 1 [id number] #### [facility] [address] [place] [address] eGFRon 08-01-2024 eGFR 126 mL/min/1.73 m2 Normal >=59 [facility] Comment on above: Order Comment: Order added by Discern Expert. Performed By: #### 1 [id number] #### [facility] [address] [place] [address] BMPon 07-30-2024 Anion gap [Moles/Vol] 13 mmol/L Normal 6-16 [facility] Comment on above: Performed By: #### 2 493513 #### [facility] [address] [place] [address] Calcium [Mass/Vol] 9.4 mg/dL Normal 8.9-11.1 [facility] Comment on above: Performed By: #### 2 146619 #### [facility] [address] [place] [address] Chloride [Moles/Vol] 107 mmol/L Normal 101-111 [facility] Comment on above: Performed By: #### 2 832270 #### [facility] [address] [place] [address] CO2 [Moles/Vol] 25 mmol/L Normal 21-31 [facility] Comment on above: Performed By: #### 2 973062 #### [facility] [address] [place] [address] Creatinine [Mass/Vol] 0.8 mg/dL Normal 0.5-1.3 [facility] Comment on above: Performed By: #### 2 055493 #### [facility] [address] [place] [address] Glucose [Mass/Vol] 89 mg/dL Normal 55-199 [facility] Comment on above: Performed By: #### 2 216322 #### [facility] [address] [place] [address] Potassium [Moles/Vol] 3.6 mmol/L Normal 3.5-5.3 [facility] Comment on above: Performed By: #### 2 190735 #### [facility] [address] [place] [address] Sodium [Moles/Vol] 141 mmol/L Normal 135-145 [facility] Comment on above: Performed By: #### 2 083066 #### [facility] [address] [place] [address] Urea nitrogen [Mass/Vol] 19 mg/dL Normal 5-21 [facility] Comment on above: Performed By: #### 2 912348 #### [facility] [address] [place] [address] Urea nitrogen/Creatinine [Mass ratio] 24 No Units High 10-20 [facility] Comment on above: Performed By: #### 2 843965 #### [facility] [address] [place] [address] CBC w/ Auto Diffon 4 Basophils/100 WBC (Bld) 0.4 % Normal 0.0-2.0 [facility] Comment on above: Performed By: #### 2 027632 #### [facility] [address] [place] [address] Basophils/Leukocytes Auto (Bld) [Pure # fraction] 0.1 E9/L Normal 0.0-0.2 [facility] Comment on above: Performed By: #### 2 632830 #### [facility] [address] [place] [address] Eosinophils (Bld) [#/Vol] 0.1 E9/L Normal 0.0-0.5 [facility] Comment on above: Performed By: #### 2 738526 #### [facility] [address] [place] [address] Eosinophils/100 WBC (Bld) 0.5 % Normal 0.0-8.0 [facility] Comment on above: Performed By: #### 2 324535 #### [facility] [address] [place] [address] Erythrocyte distribution width (RBC) [Ratio] 13.2 % Normal 10.9-14.2 [facility] Comment on above: Performed By: #### 2 189224 #### [facility] [address] [place] [address] Hematocrit (Bld) [Volume fraction] 39.6 % Normal 34.0-46.0 [facility] Comment on above: Performed By: #### 2 755762 #### [facility] [address] [place] [address] Hemoglobin (Bld) [Mass/Vol] 13.7 g/dL Normal 12.0-16.0 [facility] Comment on above: Performed By: #### 2 919438 #### [facility] [address] [place] [address] Lymphocytes (Bld) [#/Vol] 2.3 E9/L Normal 1.0-4.0 [facility] Comment on above: Performed By: #### 2 908996 #### [facility] [address] [place] [address] Lymphocytes/100 WBC (Bld) 14.1 % Normal 14.0-50.0 [facility] Comment on above: Performed By: #### 2 657538 #### [facility] [address] [place] [address] MCH (RBC) [Entitic mass] 29.4 pg Normal 27.0-34.0 [facility] Comment on above: Performed By: #### 2 784129 #### [facility] [address] [place] [address] MCHC (RBC) [Mass/Vol] 34.5 g/dL Normal 31.4-36.0 [facility] Comment on above: Performed By: #### 2 264515 #### [facility] [address] [place] [address] MCV (RBC) [Entitic vol] 85.3 fL Normal 80.0-100.0 [facility] Comment on above: Performed By: #### 2 996057 #### [facility] [address] [place] [address] Monocytes (Bld) [#/Vol] 1.2 E9/L High 0.2-1.0 [facility] Comment on above: Performed By: #### 2 726376 #### [facility] [address] [place] [address] Neutrophils (Bld) [#/Vol] 12.6 E9/L High 2.0-7.5 [facility] Comment on above: Performed By: #### 2 449673 #### [facility] [address] [place] [address] Neutrophils/100 WBC (Bld) 77.5 % High 36.0-75.0 [facility] Comment on above: Performed By: #### 2 701311 #### [facility] [address] [place] [address] Platelet 260.0 E9/L Normal 150.0-500. 0 [facility] Comment on above: Performed By: #### 2 667044 #### [facility] [address] [place] [address] Platelet mean volume (Bld) [Entitic vol] 8.1 fL Normal 6.4-10.8 [facility] Comment on above: Performed By: #### 2 125002 #### [facility] [address] [place] [address] RBC (Bld) [#/Vol] 4.7 E12/L Normal 4.3-5.9 [facility] Comment on above: Performed By: #### 2 502302 #### [facility] [address] [place] [address] WBC corrected for nucl RBC Auto (Bld) [#/Vol] 16.2 E9/L High 4.0-11.0 [facility] Comment on above: Performed By: #### 2 726915 #### [facility] [address] [place] [address] CHEMISTRYOrdered By: Manish carpio on 07-30-2024 Albumin [...] 2023 ED Clinical Summary ED Clinical Summary [place] [id number] ED Clinical Summary Person Information [facility] Age[facility] 19 [facility] : 2005 Sex: [...] 22:55:49 07/30/2024 22:55:49 07/30/2024 22:55:49 ADDRESS: [address] [place] [id number] PHYS DOC NOTES: MEDICAL INFORMATION: Prescriptions Given: New Medications [id number], [address], [place] [id number], [phone] ondansetron (Zofran ODT 4 mg Tab-Dis) 1 Tablets By Mouth every 8 hours as needed Nausea/Vomiting. Refills: 0. Medications to Continue Taking That Have Changed [facility]/pharmacy #[id number], [address], [place] [phone], [phone] START: promethazine (Phenergan 12.5 mg Supp) 1 [...] Follow up: With: Address: When: [place] [address] Business (1) In 3 days 08/02/2024 DIAGNOSIS: AP (abdominal pain); N&V (nausea and vomiting) [facility] ED Note-Physicianon 07-30-20 ED Note-Physician [...] and Complexity of Problems Differential Diagnosis: [] [facility] Data External documents reviewed: N/A My [...] # 16 tab(s), Refills(s) 0, Pharmacy: [id number], 157, cm, 07/30/24 19:37:00 EDT, Height/Length Dosing, 96.1, kg, 07/30/24 19:37:00 EDT, Weight Dosing promethazine, 12.5 mg = 1 tab(s), Oral, q8hr, PRN as needed for nausea/vomiting, second line, # 10 tab(s), Refills(s) 0, [id number] 157, cm, 07/30/24 19:37:00 EDT, Height/Length Dosing, 96.1, kg, 07/30/24 19:37:00 EDT, Weight Dosing promethazine, 12.5 mg = 1 supp, Rectal, q8hr, PRN as needed for nausea/vomiting, 3rd line, # 6 EA, Refills(s) 0, [id number] 157, cm, 07/30/24 19:37:00 EDT, Height/Length [...] Level Saline Lock Insert Medications Administered Given [id number] [F] 1000 mg + GenDil 100 mL, IV Piggyback famotidine 10 mg/mL IV Lisa, 20 mg, IV Push NS 1000 ml Bolus, 1000 mL, IV [id number] [F] 12.5 mg + Sodium Chloride 0.9% IV Lisa 50 mL [F] 50 mL, IV Piggyback Disposition Plan Discharge Prescription List Prescriptions Phenergan 12.5 mg Supp, 12.5 mg= 1 supp, Rectal, q8hr, PRN promethazine 12.5 mg oral tablet, 12.5 mg= 1 tab(s), Oral, q8hr, PRN Zofran ODT 4 mg Tab-Dis, 4 mg= 1 tab(s), Or (more content not included)... [facility] Comment on above: Result Comment: Elec tronically Signed By: Dustin Villalobos DO\.br\Date and Time Signed: 07/30/24 22:50 EDT ED Patient Summaryon 024 ED Patient Summary ED Patient Summary [place] [id number] Patient Discharge Instructions Person Information Name: PILI PARIKH Age: 19 Years Arrival Date: 07/30/2024 19:26:13 Discharge Diagnosis: AP (abdominal pain); N&V (nausea and vomiting) Primary Care Physician: MODESTA ARCHIBALD Provider Information Primary Provider: Dustin Villalobos DO [facility]:None The exam and treatment you received in the Emergency Department were for an urgent problem and are not intended as complete care. 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 If your symptoms [...] Follow-up Instructions: With: Address: When: FAMILIA CHAND [facility] [address] [address] Business (1) In 3 days 08/02/2024 In the event that this physician does not participate in your insurance network, please consult with your insurance company to find a nearby participating provider. Patient Education Materials: Nausea and Vomiting, Adult A MESSAGE TO ALL PATIENTS REGARDING OPIOIDS PRESCRIPTION OPIOIDS: WHAT YOU NEED TO KNOW Prescription opioids can be used to help relieve gaxgadaa-nm-lhopbt pain and are often prescribed following a [...] be struggling with addiction, tell your health clinical care manager and ask for guidance or call [facility] (more content not included)... [facility] HEMATOLOGYOrdered By: SYSTEM SYSTEM on [...] 07-30-2024 Albumin [Mass/Vol] 4.7 g/dL Normal 3.3-5.0 [facility] Comment on above: Performed By: #### 2 [id number] #### [facility] [address] [place] [address] Albumin/Globulin (S) [Mass conc ratio] 1.7 Normal 1.1-2.2 [facility] Comment on above: Performed By: #### 2 010073 #### [facility] [address] [place] [address] ALP [Catalytic activity/Vol] 73 Int._Unit/L Normal 21-98 [facility] Comment on above: Performed By: #### 2 361094 #### [facility] [address] [place] [address] ALT No additional P-5'-P [Catalytic activity/Vol] 46 Int._Unit/L Normal 6-46 [facility] Comment on above: Performed By: #### 2 649052 #### [facility] [address] [place] [address] AST [Catalytic activity/Vol] 24 Int._Unit/L Normal 5-43 [facility] Comment on above: Performed By: #### 2 813308 #### [facility] [address] [place] [address] Bilirubin [Mass/Vol] 0.7 mg/dL Normal 0.0-1.1 [facility] Comment on above: Performed By: #### 2 973435 #### [facility] [address] [place] [address] Bilirubin.direct [Mass/Vol] 0.1 mg/dL Normal 0.0-0.4 [facility] Comment on above: Performed By: #### 2 011948 #### [facility] [address] [place] [address] Bilirubin.indirect [Mass or moles/Vol] 0.6 mg/dL Normal 0.1-0.9 [facility] Comment on above: Performed By: #### 2 941871 #### [facility] [address] [place] [address] Globulin (S) [Mass/Vol] 2.8 g/dL Normal 1.4-4.0 [facility] Comment on above: Performed By: #### 2 382156 #### [facility] [address] [place] [address] Protein [Mass/Vol] 7.5 g/dL Normal 6.0-7.8 [facility] Comment on above: Performed By: #### 2 804059 #### [facility] [address] [place] [address] Lipase Levelon 07-30-2024 Lipase [Catalytic activity/Vol] 10 U/L Low 13-58 [facility] Comment on above: Performed By: #### 2 165939 #### [facility] [address] [place] [address] Magnesiumon 07-30-2024 Magnesium [Mass/Vol] 2.2 mg/dL Normal 1.3-2.4 [facility] Comment on above: Performed By: #### 2 392829 #### [facility] [address] [place] [address] eGFRon 07-30-2024 eGFR 108 mL/min/1.73 m2 Normal >=59 [facility] Comment on above: Order Comment: Order added by Discern Expert. Performed By: #### 1 [id number] #### [facility] [address] [place] [address] Alanine aminotransferase [En zymatic activity/volume] in Serum or PlasmaOrdered By: Femi Benitez on 03-18-2024 ALT [Catalytic activity/Vol] 25 U/L 7-52 [facility] Albumin [Mass/volume] in Ser um or Plasma by Bromocresol green (BCG) dye binding methoOrdered By: Femi Benitez on 03-18-2024 Albumin BCG dye [Mass/Vol] 5.3 g/dL 3.5-5.7 [facility] Alkaline phosphatase [Enzyma tic activity/volume] in Serum or PlasmaOrdered By: Femi Benitez on 03-18-2024 ALP [Catalytic activity/Vol] 82 U/L 34-104 [facility] Aspartate aminotransferase [ Enzymatic activity/volume] in Serum or PlasmaOrdered By: Femi Benitez on 03-18-2024 AST [Catalytic activity/Vol] 23 U/L 13-39 [facility] Basophils Auto (Bld) [#/Vol] Ordered By: Femi Benitez on 03-18-2024 Basophils (Bld) [#/Vol] 0.1 10*3/uL 0.0-0.2 [facility] Basophils/100 WBC Auto (Bld) Ordered By: Femi Benitez on 03-18-2024 Basophils/100 WBC (Bld) 0.4 % . [facility] Bilirubin.total [Mass/volume ] in Serum or PlasmaOrdered By: Femi Benitez on 03-18-2024 Bilirubin [Mass/Vol] 0.9 mg/dL 0.3-1.0 [facility] Calcium [Mass/volume] in Ser um or PlasmaOrdered By: Femi Benitez on 03-18-2024 Calcium [Mass/Vol] 10.4 mg/dL 8.6-10.3 [facility] Carbon dioxide, total [Moles /volume] in Serum or PlasmaOrdered By: Femi Benitez on 03-18-2024 CO2 [Moles/Vol] 18.4 mmol/L 21.0-31.0 [facility] Chloride [Moles/volume] in S [place] or PlasmaOrdered By: Femi Benitez on 03-18-2024 Chloride [Moles/Vol] 94 mmol/L 98-107 [facility] Choriogonadotropin.beta subu nit [Units/volume] in Serum or PlasmaOrdered By: Femi Benitez on 03-18-2024 HCG.beta subunit Qn Negative [facility] Creatinine [Mass/volume] in Serum or PlasmaOrdered By: Femi Benitez on 03-18-2024 Creatinine [Mass/Vol] 0.80 mg/dL 0.60-1.20 [facility] Eosinophils Auto (Bld) [#/Vo l]Ordered By: Femi Benitez on 03-18-2024 Eosinophils (Bld) [#/Vol] 0.4 10*3/uL 0.0-0.45 [facility] Eosinophils/100 WBC Auto (Bl d)Ordered By: Femi Benitez on 03-18-2024 Eosinophils/100 WBC (Bld) 2.3 % . [facility] Erythrocyte distribution wid th Auto (RBC) [Ratio]Ordered By: Femi Benitez on 03-18-2024 Erythrocyte distribution width (RBC) [Ratio] 14.3 % 11.9-15.3 [facility] Globulin Calc (S) [Mass/Vol] Ordered By: Femi Benitez on 03-18-2024 Globulin (S) [Mass/Vol] 2.8 g/dL [facility] Glucose [Mass/volume] in Ser um or PlasmaOrdered By: Femi Benitez on 03-18-2024 Glucose [Mass/Vol] 95 mg/dL 70-100 [facility] Comment on above: ADA recommended refe rence rangeRandom Glucose Reference Range is dependent on time and content of last meal. Glucose of more than 200 mg/dL in a nonstressed, ambulatory subject supports the diagnosis of Diabetes Mellitus. Hematocrit Auto (Bld) [Volum e fraction]Ordered By: Femi Benitez on 03-18-2024 Hematocrit (Bld) [Volume fraction] 48.2 % 34.0-46.4 [facility] Hemoglobin [Mass/volume] in BloodOrdered By: Femi Benitez on 03-18-2024 Hemoglobin (Bld) [Mass/Vol] 16.3 g/dL 11.8-15.4 [facility] Leukocytes [#/volume] correc venkata for nucleated erythrocytes in Blood by Automated counOrdered By: Femi Benitez on 03-18-2024 WBC corrected for nucl RBC Auto (Bld) [#/Vol] 18.5 10*3/uL 3.8-11.6 [facility] Lymphocytes Auto (Bld) [#/Vo l]Ordered By: Femi Benitez on 03-18-2024 Lymphocytes (Bld) [#/Vol] 3.9 10*3/uL 1.00-4.8 [facility] Lymphocytes/100 WBC Auto (Bl d)Ordered By: Femi Benitez on 03-18-2024 Lymphocytes/100 WBC (Bld) 20.9 % . [facility] MCH Auto (RBC) [Entitic mass ]Ordered By: Femi Benitez on 03-18-2024 MCH (RBC) [Entitic mass] 28.2 pg 24.7-34.3 [facility] MCHC Auto (RBC) [Mass/Vol]Or dered By: Femi Benitez on 03-18-2024 MCHC (RBC) [Mass/Vol] 33.9 g/dL 32.0-35.0 [facility] MCV Auto (RBC) [Entitic vol] Ordered By: Femi Benitez on 03-18-2024 MCV (RBC) [Entitic vol] 83.2 fL 80-100 [facility] Monocyte distribution width [Entitic volume] in Blood by AutomatedOrdered By: Femi Benitez on 03-18-2024 Monocyte distribution width Auto (Bld) [Entitic vol] 16.34 % 0.00-20.00 [facility] Monocytes Auto (Bld) [#/Vol] Ordered By: Femi Benitez on 03-18-2024 Monocytes (Bld) [#/Vol] 1.4 10*3/uL 0.0-0.8 [facility] Monocytes/100 WBC Auto (Bld) Ordered By: Femi Benitez on 03-18-2024 Monocytes/100 WBC (Bld) 7.6 % . [facility] Neutrophils Auto (Bld) [#/Vo l]Ordered By: Femi Benitez on 03-18-2024 Neutrophils (Bld) [#/Vol] 12.7 10*3/uL 1.8-7.7 [facility] Neutrophils/100 WBC Auto (Bl d)Ordered By: Femi Benitez on 03-18-2024 Neutrophils/100 WBC (Bld) 68.8 % . [facility] No Panel InformationOrdered By: Femi Benitez on 03-18-2024 Estimated GFR (CKD-EPI) > 60.0 mL/Min [facility] Creatinine Clearance (Chem 120.98 [facility] Nucleated erythrocytes [Pres ence] in Blood by Automated countOrdered By: Femi Benitez on 03-18-2024 Nucleated RBC Auto Ql (Bld) 0.1 /100{WBC} 0-0.5 [facility] Platelet mean volume Auto (B ld) [Entitic vol]Ordered By: Femi Benitez on 03-18-2024 Platelet mean volume (Bld) [Entitic vol] 8.5 fL 6.3-10.7 [facility] Platelets Auto (Bld) [#/Vol] Ordered By: Femi Benitez on 03-18-2024 Platelets (Bld) [#/Vol] 358 10*3/uL 150-450 [facility] Potassium [Moles/volume] in Serum or PlasmaOrdered By: Femi Benitez on 03-18-2024 Potassium [Moles/Vol] See comment 3.5-5.1 [facility] Comment on above: Specimen hemolyzed, redraw requestedResults calledat 2349 on 03/18/24 Protein [Mass/volume] in Ser um or PlasmaOrdered By: Femi Benitez on 03-18-2024 Protein [Mass/Vol] 8.1 g/dL 6.4-8.9 [facility] RBC Auto (Bld) [#/Vol]Ordere d By: Femi Benitez on 03-18-2024 RBC (Bld) [#/Vol] 5.79 10*6/uL 3.60-5.00 [facility] Serum or plasma albumin/glob ulin mass ratioOrdered By: Femi Benitez on 03-18-2024 Albumin/Globulin [Mass ratio] 1.9 {ratio} [facility] Serum or plasma anion gap de terminationOrdered By: Femi Benitez on 03-18-2024 Anion gap [Moles/Vol] TNP [facility] Comment on above: Test not performed Sodium [Moles/volume] in Ser um or PlasmaOrdered By: Femi Benitez on 03-18-2024 Sodium [Moles/Vol] 134 mmol/L 136-145 [facility] Urea nitrogen [Mass/volume] in Serum or PlasmaOrdered By: Femi Benitez on 03-18-2024 Urea nitrogen [Mass/Vol] 27 mg/dL 7-25 [facility] WBC Auto (Bld) [#/Vol]Ordere d By: Femi Benitez on 03-18-2024 WBC (Bld) [#/Vol] 18.5 10*3/uL 3.8-11.6 [facility] CBC w/ Auto Diffon Basophils/100 WBC (Bld) 0.4 % Normal 0.0-2.0 [facility] Comment on above: Performed By: #### 2 556049, 65977901, 9807451, 0203030 ####[facility] [address] [place] [address] Basophils/Leukocytes Auto (Bld) [Pure # fraction] 0.1 E9/L Normal 0.0-0.2 [facility] Comment on above: Performed By: #### 2 595226, 04613228, 8909971, 6450335 ####[facility] [address] [place] [address] Eosinophils (Bld) [#/Vol] 0.0 E9/L Normal 0.0-0.5 [facility] Comment on above: Performed By: #### 2 835426, 70018874, 6226002, 3486330 ####[facility] [address] [place] [address] Eosinophils/100 WBC (Bld) 0.3 % Normal 0.0-8.0 [facility] Comment on above: Performed By: #### 2 440175, 65955875, 9475516, 3521788 ####[place] [address] [place] [address] Erythrocyte distribution width (RBC) [Ratio] 14.1 % Normal 10.9-14.2 [facility] Comment on above: Performed By: #### 2 562413, 83899600, 1205427, 6264967 ####[address] [address] Hematocrit (Bld) [Volume fraction] 44.0 % Normal 34.0-46.0 [facility] Comment on above: Performed By: #### 2 140279, 64066772, 8501402, 2662548 ####[address] [address] Hemoglobin (Bld) [Mass/Vol] 14.4 g/dL Normal 12.0-16.0 [facility] Comment on above: Performed By: #### 2 488739, 00953572, 0522792, 3748070 ####[address] [address] Lymphocytes (Bld) [#/Vol] 2.2 E9/L Normal 1.0-4.0 [facility] Comment on above: Performed By: #### 2 989967, 21681828, 0714079, 0130339 ####[address] [address] Lymphocytes/100 WBC (Bld) 15.8 % Normal 14.0-50.0 [facility] Comment on above: Performed By: #### 2 607850, 20349381, 5571112, 6161360 ####[address] [address] MCH (RBC) [Entitic mass] 27.8 pg Normal 27.0-34.0 [facility] Comment on above: Performed By: #### 2 378191, 81292651, 6144178, 7945841 ####[address] [address] MCHC (RBC) [Mass/Vol] 32.6 g/dL Normal 31.4-36.0 [facility] Comment on above: Performed By: #### 2 077945, 17565320, 8817985, 6356706 ####[facility] [address] [place] [address] MCV (RBC) [Entitic vol] 85.2 fL Normal 80.0-100.0 [facility] Comment on above: Performed By: #### 2 006122, 65829190, 0385254, 4607041 ####[address] [address] Monocytes (Bld) [#/Vol] 1.1 E9/L High 0.2-1.0 [facility] Comment on above: Performed By: #### 2 706111, 51341520, 3476046, 8078061 ####[address] [address] Neutrophils (Bld) [#/Vol] 10.6 E9/L High 2.0-7.5 [facility] Comment on above: Performed By: #### 2 007480, 74970381, 0874173, 9799749 ####[address] [address] Neutrophils/100 WBC (Bld) 75.9 % High 36.0-75.0 [facility] Comment on above: Performed By: #### 2 251303, 56596418, 0582461, 0977295 ####[address] [address] Platelet mean volume (Bld) [Entitic vol] 8.4 fL Normal 6.4-10.8 [facility] Comment on above: Performed By: #### 2 698801, 80569331, 0660026, 8303670 ####[address] [address] Platelets (Bld) [#/Vol] 276.0 E9/L Normal 150.0-500. 0 [facility] Comment on above: Performed By: #### 2 469552, 07141834, 1489168, 2007007 ####[facility] [address] [place] [address] RBC (Bld) [#/Vol] 5.2 E12/L Normal 4.3-5.9 [facility] Comment on above: Performed By: #### 2 747578, 43133850, 5318714, 8641857 ####[facility] [address] [place] [address] WBC corrected for nucl RBC Auto (Bld) [#/Vol] 14.0 E9/L High 4.0-11.0 [facility] Comment on above: Performed By: #### 2 878742, 97944493, 1563202, 8668946 ####[facility] [address] [place] [address] CHEMISTRYOrdered By: SYSTEM SYSTEM on 03-15-2024 Albumin [...] 03-15-2024 Chloride [Moles/Vol] 99 mmol/L Low 101-111 [facility] Comment on above: Performed By: #### 2 546904, 90182485, 7535379, 6362970 ####[facility] [address] [place] [address] Potassium [Moles/Vol] 3.3 mmol/L Low 3.5-5.3 [facility] Comment on above: Performed By: #### 2 188617, 03339900, 2518185, 6792667 ####[facility] [address] [place] [address] Sodium [Moles/Vol] 137 mmol/L Normal 135-145 [facility] Comment on above: Performed By: #### 2 128616, 68895918, 2531067, 1390690 ####[facility] [address] [place] [address] Anion gap [Moles/Vol] 22 mmol/L High 6-16 [facility] Comment on above: Performed By: #### 2 537229, 32104131, 3600579, 5578037 ####[address] [address] CO2 [Moles/Vol] 19 mmol/L Low 21-31 [facility] Comment on above: Performed By: #### 2 308189, 18306851, 5995856, 8474251 ####[address] [address] Albumin [Mass/Vol] 5.0 g/dL Normal 3.3-5.0 [facility] Comment on above: Performed By: #### 2 047461, 16298943, 6353503, 9431561 ####[address] [address] Albumin/Globulin (S) [Mass conc ratio] 1.8 Normal 1.1-2.2 [facility] Comment on above: Performed By: #### 2 097738, 32850636, 4646822, 6432374 ####[address] [address] ALP [Catalytic activity/Vol] 69 Int._Unit/L Normal 21-98 [facility] Comment on above: Performed By: #### 2 522504, 26903454, 0318254, 4468970 ####[address] [address] ALT No additional P-5'-P [Catalytic activity/Vol] 31 Int._Unit/L Normal 6-46 [facility] Comment on above: Performed By: #### 2 779816, 26239421, 3974923, 1937522 ####[address] [address] AST [Catalytic activity/Vol] 19 Int._Unit/L Normal 5-43 [facility] Comment on above: Performed By: #### 2 807068, 87717410, 2942503, 3344227 ####[address] [place] [address] Bilirubin [Mass/Vol] 0.8 mg/dL Normal 0.0-1.1 [facility] Comment on above: Performed By: #### 2 728739, 23090690, 6367696, 4657728 ####[facility] [address] [place] [address] Calcium [Mass/Vol] 10.4 mg/dL Normal 8.9-11.1 [facility] Comment on above: Performed By: #### 2 422631, 28275744, 1974736, 4591066 ####[facility] [address] [place] [address] Creatinine [Mass/Vol] 0.8 mg/dL Normal 0.5-1.3 [facility] Comment on above: Performed By: #### 2 399977, 44931663, 3384612, 0903735 ####[facility] [address] [place] [address] Globulin (S) [Mass/Vol] 2.8 g/dL Normal 1.4-4.0 [facility] Comment on above: Performed By: #### 2 255533, 34148012, 0020373, 0278372 ####[facility] [address] [place] [address] Glucose [Mass/Vol] 86 mg/dL Normal 55-199 [facility] Comment on above: Performed By: #### 2 334357, 62081368, 7110379, 8758752 ####[facility] [address] [place] [address] Protein [Mass/Vol] 7.8 g/dL Normal 6.0-7.8 [facility] Comment on above: Performed By: #### 2 368826, 79821648, 7179810, 0930054 ####[facility] [address] [place] [address] Urea nitrogen [Mass/Vol] 24 mg/dL High 5-21 [facility] Comment on above: Performed By: #### 2 720322, 49415232, 0977046, 3058722 ####[facility] [address] [place] [address] Urea nitrogen/Creatinine [Mass ratio] 30 No Units High 10-20 [facility] Comment on above: Performed By: #### 2 263066, 71919035, 1305710, 7114730 ####[facility] [address] [place] [address] CT Chest w/ Contraston 03-15 CT Chest [...] 300 Contrast amount in ml's: 100 Normal [facility] Consent for Treatmenton 02-26 Consent for Treatment [id number] Normal [facility] Discharge Instructionson Discharge Instructions [id number] Normal [facility] ED Clinical Summaryon 2023 ED Clinical Summary (Inserted Image. Vesta ble to display) [place] [id number] ED Clinical Summary Person Information Name: PILI [...] 13:49:40 03/15/2024 13:49:40 03/15/2024 13:49:40 ADDRESS: [address] [place] [id number] PHYS DOC NOTES: MEDICAL INFORMATION: Prescriptions Given: Medications to Continue with No Changes Other Medications acetaminophen-hydrocodone ([place] 325 mg-5 mg oral tablet) 1 Tablets [...] symptoms. DIAGNOSIS: 1:Nausea and vomiting; 2:Pneumomediastinum [facility] ED Note-Physicianon 03-15-20 24 ED [...] and Complexity of Problems Differential Diagnosis: [] [facility] Data External documents reviewed: [] My [...] Return to (more content not included)... [facility] Comment on above: Result Comment: [...] added (diluted fruit juice). ? Eat bland, yaxq-ya-blaewy foods in small amounts as you are able. These foods include bananas, applesauce, rice, lean meats, toast, and crackers. ? Avoid fluids that contain a lot of sugar or caffeine, such as energy drinks, sports drinks, and soda. ? Avoid alcohol. ? Avoid spicy or fatty foods. General instructions ? Take rbcg-sef-qzdkcit and prescription medicines only as told by your health care provider. ? Drink enough fluid to keep your urine pale yellow. ? Wash your hands often using soap and water for at least 20 seconds. If soap and water are not available, use hand modeling director. ? Make sure that everyone in [...] and drinking to prevent dehydration. ? Take vdya-ejd-obwlubu and prescription medicines only as told by [...] provider. Document Revised: 05/21/2022 Document Reviewed: 05/21/2022 [employer] Patient Education ? 2022 [employer]. Radiology Pneumomediastinum Pneumomediastinum is the presence of [...] marijuana. Spontane (more content not included)... [facility] ED Patient Summaryon 024 ED Patient Summary (Inserted Image. Vesta ble to display) [address] [address] Patient Discharge Instructions Person Information Name: PILI PARIKH Age: 19 Years Arrival Date: 03/15/2024 10:32:10 Discharge Diagnosis: 1:Nausea and vomiting; 2:Pneumomediastinum Primary Care Physician: MODESTA ARCHIBALD Provider Information Primary Provider: August Bermudez M.D. [facility] Manager:None The exam and treatment you received in the Emergency Department were for an urgent problem and are not intended as complete care. 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 If your symptoms [...] opioids can be used to help relieve wpdbnrxs-ur-dgvqbp pain and are often prescribed following a [...] be strugg (more content not included)... [facility] HEMATOLOGYOrdered By: SYSTEM SYSTEM on [...] 03-15-2024 Magnesium [Mass/Vol] 2.2 mg/dL Normal 1.3-2.4 [facility] Comment on above: Performed By: #### 2 997315, 65442378, 1370173, 4268225 ####[facility] [address] [place] [address] eGFRon 03-15-2024 eGFR 108 mL/min/1.73 m2 Normal >=59 [facility] Comment on above: Order Comment: Order added by Discern Expert. Performed By: #### 2 729772, 47067030, 8069625, 8856455 ####[facility] [address] [place] [address] CT Abdomen/Pelvis w/ Contras ton 03-14-2024 CT [...] Contrast amount in ml's: [address] [facility] CT Chest w/ Contraston 03-14 CT [...] 300 Contrast amount in ml's: [address] [facility] [address] Head or Brain w/o [...] M.D. Transcribed by: KIRA Technologist: RAVEN Normal [facility] CT Spine Cervical w/o Contra [...] M.D. Transcribed by: KIRA Technologist: RAVEN Normal [facility] EMS Documentationon 03-14-20 EMS Documentation Please click on link to see report [facility] Comment on above: Result Comment: [...] mGy = na DAP = na [facility] ABO/Rhon 03-13-2024 ABO/Rh Positive Invalid Interpretation Code [facility] Comment on above: Performed By: #### 2 735212, 37775627, 53352061, 76761357 ####[facility] [address] [place] [address] ABO/Rh History Checkon 03-13 ABO/Rh History Check Patient discharged prior Normal [facility] Comment on above: Performed By: #### 2 140966, 40509383, 87822485, 62436665 ####[facility] [address] [place] [address] ABSCon 03-13-2024 ABSC Gel Interp Negative Normal [facility] Comment on above: Performed By: #### 2 353185, 78860151, 51737565, 05759994 ####[facility] [address] [place] [address] B hCG Qualon 03-13-2024 Beta HCG ( test) Ql Negative Normal [facility] Comment on above: Performed By: #### 2 0651495, 9540647, 0552545, 6483434, 3852935, 81410902, 87394390, 6476156, 0637162 ####[facility] [address] [place] [address] BLOOD BANKOrdered By: Scarlet Lindquist on 03-13-2024 ABO/Rh Interp Positive Invalid Interpretation Code [facility] BB Subsection ABSC Gel Interp Negative (03/13/24 6:53 PM) Normal [facility] BB Subsection BMPon 03-13-2024 Anion gap [Moles/Vol] 16 mmol/L Normal 05-13 [facility] Comment on above: Performed By: #### 2 5100029, 7788653, 8512378, 3868270, 6993374, 13062110, 37847089, 8539644, 9766169 ####[facility] [address] [place] [address] Calcium [Mass/Vol] 10.8 mg/dL Normal 8.9-11.1 [facility] Comment on above: Performed By: #### 2 4974240, 0401777, 1457805, 1285011, 6104109, 28510221, 96934755, 5669467, 2736054 ####[facility] [address] [place] [address] Chloride [Moles/Vol] 105 mmol/L Normal 101-111 [facility] Comment on above: Performed By: #### 2 1197823, 6439674, 1960031, 7260716, 6612311, 51853966, 08832285, 2228162, 2621260 ####[facility] [address] [place] [address] CO2 [Moles/Vol] 25 mmol/L Normal 21-31 [facility] Comment on above: Performed By: #### 2 3416185, 1267037, 4318557, 5907208, 0371576, 06815096, 27909186, 8559193, 2564118 ####[facility] [address] [place] [address] Creatinine [Mass/Vol] 0.9 mg/dL Normal 0.5-1.3 [facility] Comment on above: Performed By: #### 2 8209422, 1738233, 4014390, 9932189, 2546509, 76007952, 49452274, 3720664, 9088826 ####[facility] [address] [place] [address] Glucose [Mass/Vol] 100 mg/dL Normal 55-199 [facility] Comment on above: Performed By: #### 2 6940802, 8092014, 8508012, 6211553, 9416589, 56692256, 34574898, 3341504, 4396139 ####[facility] [address] [place] [address] Potassium [Moles/Vol] 3.3 mmol/L Low 3.5-5.3 [facility] Comment on above: Performed By: #### 2 0786435, 9506802, 7448946, 6066498, 6078315, 55089552, 37753696, 7165761, 1471058 ####[facility] [address] [place] [address] Sodium [Moles/Vol] 143 mmol/L Normal 135-145 [facility] Comment on above: Performed By: #### 2 9816674, 5001917, 4827703, 1734027, 1428127, 70142481, 74614719, 1458807, 8497224 ####[facility] [address] [place] [address] Urea nitrogen [Mass/Vol] 24 mg/dL High 5-21 [facility] Comment on above: Performed By: #### 2 3293072, 5797320, 6084838, 4850469, 9809018, 50920158, 69072928, 1435677, 3797890 ####[facility] [address] [place] [address] Urea nitrogen/Creatinine [Mass ratio] 27 No Units High 10-20 [facility] Comment on above: Performed By: #### 2 3864189, 7158160, 0578078, 5247714, 6638335, 72491801, 49891824, 5275912, 5839708 ####[facility] [address] [place] [address] Blood Bank ID#on 03-13-2024 BBID# [id number] Invalid Interpretation Code [facility] Comment on above: Performed By: #### 2 405839, 50060202, 65948590, 83747590 ####[address] [address] CBC w/ Auto Diffon 4 Basophils/100 WBC (Bld) 0.4 % Normal 0.0-2.0 [facility] Comment on above: Performed By: #### 2 6206031, 4970543, 3011371, 4233398, 2601913, 67946613, 49299978, 6822504, 1527203 ####[address] [address] Basophils/Leukocytes Auto (Bld) [Pure # fraction] 0.1 E9/L Normal 0.0-0.2 [facility] Comment on above: Performed By: #### 2 2211155, 5419827, 8244022, 3306238, 1339144, 94530978, 90589799, 4233169, 6501341 ####[address] [address] Eosinophils (Bld) [#/Vol] 0.0 E9/L Normal 0.0-0.5 [facility] Comment on above: Performed By: #### 2 3867599, 2500154, 4437636, 3166586, 7815169, 37800305, 63397011, 5619989, 3194224 ####[address] [address] Eosinophils/100 WBC (Bld) 0.1 % Normal 0.0-8.0 [facility] Comment on above: Performed By: #### 2 8590502, 7348373, 2198042, 0522394, 7724669, 36650570, 17343747, 5535464, 7617759 ####[address] [place] [address] Erythrocyte distribution width (RBC) [Ratio] 14.4 % High 10.9-14.2 [facility] Comment on above: Performed By: #### 2 3927428, 8754185, 8692693, 1836958, 3419344, 80995264, 41990172, 3659277, 1659613 ####[address] [address] Hematocrit (Bld) [Volume fraction] 42.5 % Normal 34.0-46.0 [facility] Comment on above: Performed By: #### 2 3778854, 3339715, 0776703, 5277716, 4370750, 80000724, 39417544, 8948339, 8579899 ####[address] [address] Hemoglobin (Bld) [Mass/Vol] 14.0 g/dL Normal 12.0-16.0 [facility] Comment on above: Performed By: #### 2 4798552, 2912291, 4333464, 2139619, 0711462, 86207946, 56960896, 1914043, 8070426 ####[address] [address] Lymphocytes (Bld) [#/Vol] 2.3 E9/L Normal 1.0-4.0 [facility] Comment on above: Performed By: #### 2 6804955, 1396497, 4164835, 2865034, 5069111, 18198092, 39997520, 1639362, 9749902 ####[address] [address] Lymphocytes/100 WBC (Bld) 11.8 % Low 14.0-50.0 [facility] Comment on above: Performed By: #### 2 9015789, 1440128, 1268098, 7398170, 5043209, 45788645, 84789843, 0267931, 3914009 ####[address] [place] [address] MCH (RBC) [Entitic mass] 27.6 pg Normal 27.0-34.0 [facility] Comment on above: Performed By: #### 2 1851335, 9416101, 6566116, 6022973, 9433863, 73920291, 75328364, 7158190, 5802384 ####[address] [address] MCHC (RBC) [Mass/Vol] 32.9 g/dL Normal 31.4-36.0 [facility] Comment on above: Performed By: #### 2 9861776, 7341314, 9968407, 7215392, 2321872, 89029754, 12375973, 1463209, 2429252 ####[address] [address] MCV (RBC) [Entitic vol] 83.8 fL Normal 80.0-100.0 [facility] Comment on above: Performed By: #### 2 3079634, 9909942, 0926553, 9112958, 0570532, 07184058, 57325072, 6797617, 8794401 ####[address] [address] Monocytes (Bld) [#/Vol] 1.4 E9/L High 0.2-1.0 [facility] Comment on above: Performed By: #### 2 6341390, 5526872, 9113745, 1208657, 8616562, 77703733, 07343879, 7293437, 1115543 ####[address] [address] Neutrophils (Bld) [#/Vol] 15.5 E9/L High 2.0-7.5 [facility] Comment on above: Performed By: #### 2 0951673, 5488341, 0592825, 4556078, 0878371, 92686521, 87924622, 2829083, 2614083 ####[address] [place] [address] Neutrophils/100 WBC (Bld) 80.6 % High 36.0-75.0 [facility] Comment on above: Performed By: #### 2 6638401, 4689946, 1145612, 1490048, 7017928, 96892355, 52613246, 1857532, 1654475 ####[address] [address] Platelet mean volume (Bld) [Entitic vol] 8.4 fL Normal 6.4-10.8 [facility] Comment on above: Performed By: #### 2 6618999, 2104780, 6274218, 0276414, 4473815, 84273762, 41415337, 6145600, 6635133 ####[address] [address] Platelets (Bld) [#/Vol] 356.0 E9/L Normal 150.0-500. 0 [facility] Comment on above: Performed By: #### 2 0832000, 8606648, 3472503, 4582716, 5390782, 83363176, 90083795, 2292050, 3074791 ####[address] [address] RBC (Bld) [#/Vol] 5.1 E12/L Normal 4.3-5.9 [facility] Comment on above: Performed By: #### 2 9280954, 3198079, 4649388, 7195204, 3646110, 43951359, 72717003, 9898215, 9887154 ####[address] [address] WBC corrected for nucl RBC Auto (Bld) [#/Vol] 19.3 E9/L High 4.0-11.0 [facility] Comment on above: Result Comment: Slid e review performed Performed By: #### 2 6430484, 7528449, 5788858, 3531596, 4586957, 56706330, 94006680, 5324218, 6378644 ####[facility] [address] [place] [address] CHEMISTRYOrdered By: SYSTEM SYSTEM on 03-13-2024 Albumin [...] 32.8 s Normal 25.1 - 36.5 second(s) [facility] Comment on above: Interpretive Data: [...] the same coagulation reagent and instrumentation as [facility]. Currently there are no coagulation studies available worldwide for children to 14 days, and no normal ranges. Heparin therapeutic range (represented by Anti-Factor Xa activity of 0.2 - 0.4 U/mL) corresponds to PTT of 56.6 - 109.0 sec. INR Coag (PPP) [Relative time] 1.11 {INR} Invalid Interpretation Code [facility] Comment on above: Interpretive Data: I NR results are specifically intended to assess patients stabilized on long-term Anticoagulation therapy suggested INR s Less Intensive Anticoagulation 2.0 3.0 Conventional Range 3.0 4.5 PT Coag (PPP) [Time] 12.4 s Normal 9.4 - 1 2.5 second(s) [facility] Comment on above: Interpretive Data: [...] the same coagulation reagent and instrumentation as [facility]. Currently there are no coagulation studies available worldwide for children to 14 days, and no normal ranges. Consent for Treatmenton 02-26 Consent for Treatment [id number]#1.00TIFF [facility] Discharge Instructionson Discharge Instructions [id number]#1.00TIFF [facility] ED Clinical Summaryon 2023 ED Clinical Summary (Inserted Image. Vesta ble to display) [address] [address] ED Clinical Summary Person Information Name: PILI PARIKH/[facility]_Anthony Age: 19 Years : 2005 Sex: Female [...] 03/13/2024 22:27:59 03/13/2024 22:27:59 ADDRESS: [address] [facility] [id number] PHYS DOC NOTES: MEDICAL INFORMATION: Prescriptions Given: New Medications [id number], [address], [place] [id number], [phone] acetaminophen-hydrocodone ([place] 325 mg-5 mg oral tablet) 1 Tablets [...] EDUCATION INFORMATION: Instructions: Nausea and Vomiting, Adult, Udcp-ew-Pvxr; Muscle Strain, Ohtw-ry-Fodu Follow up: With: Address: When: MODESTA ARCHIBALD [address] [place], [place] [phone] Business (1) In 3 days 03/16/2024 Comments: [...] Back strain; N&V (nausea and vomiting) [facility] ED Note-Physicianon 03-13-20 ED Note-Physician [...] EDT, STA (more content not included)... [facility] Comment on above: Result Comment: [...] ? Low-calorie sports drinks. ? Eat bland, edoj-mw-razwtt foods in small amounts as you are able, such as: ? Bananas. ? Applesauce. ? Rice. ? Low-fat (lean) meats. ? [employer]. ? Crackers. ? Avoid drinking fluids that have a lot of sugar or caffeine in them. This includes energy drinks, sports drinks, and soda. ? Avoid alcohol. ? Avoid spicy or fatty foods. General instructions ? Take pbtj-upv-xljxcso and prescription medicines only as told by your doctor. ? Drink enough fluid to keep your pee (urine) pale yellow. ? Wash your hands often with soap and water for at least 20 seconds. If you cannot use soap and water, use hand modeling director. ? Make sure that everyone in [...] doctor about eating and drinking. ? Take mswr-dft-lyhghyj and prescription medicines only as told by your doctor. ? Contact your doctor if your symptoms get worse or you have new symptoms. ? Keep all follow-up visits. This information is not intended to replace advice given to you by your health care provider. Make sure you discuss any questions you have with your health care provider. Document Revised: 05/21/2022 Document Reviewed: 05/21/2022 [employer] Patient Education ? 2022 [employer]. Orthopedics Muscle Strain A muscle strain, or [...] your m (more content not included)... [facility] ED Patient Summaryon 024 ED Patient Summary (Inserted Image. Vesta ble to display) [place] [id number] Patient Discharge Instructions Person Information Name: PILI PARIKH Age: 19 Years Arrival Date: 03/13/2024 17:33:02 Discharge Diagnosis: 1:Fall down stairs; Abnormal CT scan, chest; Back strain; N&V (nausea and vomiting) Primary Care Physician: MODESTA ARCHIBALD Provider Information Primary Provider: Femi Roman DO [facility] Manager:Gasper Lang PA-C The exam and treatment you received in the Emergency Department were for an urgent problem and are not intended as complete care. 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 If your symptoms [...] Follow-up Instructions: With: Address: When: MODESTA Garcia [place], [place] [phone] Business (1) In 3 days 03/16/2024 Comments: [...] Patient Education Materials: Nausea and Vomiting, Adult, Atwu-ty-Zhyd; Muscle Strain, Wqcb-gx-Vhxv A MESSAGE TO ALL PATIENTS REGARDING OPIOIDS PRESCRIPTION OPIOIDS: WHAT YOU NEED TO KNOW Prescription opioids can be used to help relieve dmhdktjw-jh-ucnaja pain and are often prescribed following a [...] them juan (more content not included)... [facility] ED Traumaon 03-13-2024 ED Trauma [id number]#1.00TIFF [facility] Ethanolon 03-13-2024 Ethanol Lvl <10 Normal <=11 [facility] Comment on above: Performed By: #### 2 245924 ####[facility] [address] [place] [address] HEMATOLOGYOrdered By: SYSTEM SYSTEM on 03-13-2024 Basophils/100 [...] 03-13-2024 Albumin [Mass/Vol] 5.4 g/dL High 3.3-5.0 [facility] Comment on above: Performed By: #### 2 5160658, 1302370, 4287278, 6685460, 6290636, 84349207, 79690554, 5150609, 4601337 ####[facility] [address] [place] [address] Albumin/Globulin (S) [Mass conc ratio] 1.8 Normal 1.1-2.2 [facility] Comment on above: Performed By: #### 2 6195522, 7630821, 9262013, 7567155, 6901253, 27392949, 14836339, 5952831, 1220320 ####[facility] [address] [place] [address] ALP [Catalytic activity/Vol] 82 Int._Unit/L Normal 21-98 [facility] Comment on above: Performed By: #### 2 7062003, 8060051, 2063365, 7866085, 5667459, 39608865, 87749812, 8192853, 9112494 ####[facility] [address] [place] [address] ALT No additional P-5'-P [Catalytic activity/Vol] 44 Int._Unit/L Normal 6-46 [facility] Comment on above: Performed By: #### 2 7811582, 6765504, 7147363, 6035786, 4698579, 25107621, 84640858, 6545682, 1333487 ####[facility] [address] [place] [address] AST [Catalytic activity/Vol] 23 Int._Unit/L Normal 5-43 [facility] Comment on above: Performed By: #### 2 6871725, 3141912, 3751445, 0587635, 6124117, 52576677, 49475288, 5444051, 2079786 ####[facility] [address] [place] [address] Bilirubin [Mass/Vol] 0.8 mg/dL Normal 0.0-1.1 [facility] Comment on above: Performed By: #### 2 7208893, 9862642, 5992215, 8922894, 4852404, 93156237, 19205065, 4444115, 5491995 ####[facility] [address] [place] [address] Bilirubin.direct [Mass/Vol] 0.2 mg/dL Normal 0.0-0.4 [facility] Comment on above: Performed By: #### 2 3303892, 7059982, 2530825, 9901850, 6894900, 19746767, 93509777, 3381850, 1662721 ####[place] [address] Bilirubin.indirect [Mass or moles/Vol] 0.6 mg/dL Normal 0.1-0.9 [facility] Comment on above: Performed By: #### 2 3874662, 3363751, 9429466, 3016082, 2252995, 33766131, 98710996, 0714675, 7568360 ####[address] [address] Globulin (S) [Mass/Vol] 3.0 g/dL Normal 1.4-4.0 [facility] Comment on above: Performed By: #### 2 6920241, 8814950, 3720779, 4924189, 0032221, 81368304, 24082541, 0771345, 7268578 ####[facility] [address] [place] [address] Protein [Mass/Vol] 8.4 g/dL High 6.0-7.8 [facility] Comment on above: Performed By: #### 2 3346710, 8190930, 0636160, 0744611, 6143531, 54370763, 11258346, 3016652, 8788684 ####[address] [address] Lactic Acidon 03-13-2024 Lactic Acid Lvl 1.7 mmol/L Normal 0.5-2.2 [facility] Comment on above: Performed By: #### 2 3355819, 4546638, 5171470, 2906121, 6300287, 27839792, 08586819, 8971809, 8537069 ####[facility] [address] [place] [address] Lipase Levelon 03-13-2024 Lipase [Catalytic activity/Vol] 14 U/L Normal 13-58 [facility] Comment on above: Performed By: #### 2 8513798, 6163600, 4322739, 6901575, 4989050, 71284736, 94117167, 0786218, 0839379 ####[facility] [address] [place] [address] Monitor Recordon 03-13-2024 Monitor Record [id number]#1.00TIFF [facility] Monitor Record [id number]#1.00TIFF [facility] PT & PTTon 03-13-2024 aPTT Coag (PPP) [Time] 32.8 second(s) Normal 25.1-36.5 [facility] Comment on above: Result Comment: [...] the same coagulation reagent and instrumentation as [facility]. Currently there are no coagulation studies available worldwide for children to 14 days, and no normal ranges. Heparin therapeutic range (represented by Anti-Factor Xa activity of 0.2 - 0.4 U/mL) corresponds to PTT of 56.6 - 109.0 sec. Performed By: #### 2 7084181, 6631829, 4417186, 3922075, 6166161, 47165786, 90521568, 1377939, 9717152 ####[facility] [address] [place] [address] INR Coag (PPP) [Relative time] 1.11 {INR} Invalid Interpretation Code [facility] Comment on above: Result Comment: INR results are specifically intended to assess patients stabilized on long-term Anticoagulation therapy suggested INR?s ?Less Intensive Anticoagulation? 2.0 ? 3.0 Conventional Range 3.0 ? 4.5 Performed By: #### 2 6997284, 6234159, 6805439, 2393794, 4074354, 91243083, 39377375, 1619926, 5371207 ####[facility] [address] [place] [address] PT Coag (PPP) [Time] 12.4 second(s) Normal 9.4-12.5 [facility] Comment on above: Result Comment: [...] the same coagulation reagent and instrumentation as [facility]. Currently there are no coagulation studies available worldwide for children to 14 days, and no normal ranges. Performed By: #### 2 4548205, 6807489, 7742821, 5177321, 3058390, 33215087, 24767791, 7859507, 5962706 ####[facility] [address] [place] [address] Pre-Arrival Noteon Pre-Arrival Note Pre-Arrival Summary Name: LOS Current Date: 03/13/2024 17:34:24 EDT Gender: Female Date of : Age: 19 Pre-Arrival Type: EMS ETA: 03/13/2024 17:59:00 EDT Primary Care Physician: Presenting Problem: fall down 10 stairs Pre-Arrival User: Payal Robison RN Referring Source: Location: Completion Date/Time: 03/13/2024 17:29:00 [facility] Emergency Department Pre-Hospital Report Form Vital Signs: 127/83; 66; 17; 96%; GCS 15 Pre-Hospital Report: Treatment in Route: C-COLLAR Response to Treatment: Misc. Issues: [facility] Prescriptions/Work Noteson 0 03-13-2024 Prescriptions/Work Notes [id number]#1.00TIFF [facility] RAD - Preliminary Cat Scan R eporton 03-13-2024 RAD - Preliminary Cat Scan Report [id number]#1.00TIFF [facility] SEROLOGYOrdered By: Virginia Mccain on 03-13-2024 Beta HCG ( test) Ql Negative (03/13/24 6:53 PM) Normal [facility] Man Sero Troponinon 03-13-2024 Troponin 6.10 pg/mL Low 10.10-27.1 0 [facility] Comment on above: Result Comment: The 95% CI (Confidence Interval) PPV (Positive Predictive Value) for myocardial infarction in females is 38 pg/mL, in males 51 pg/mL. The results should be used in conjunction with clinical conditions of myocardial infarction. (Access High Sensitivity Troponin I Instructions For Use, Sugar Sundar, June 2018) Performed By: #### 2 9857455, 7370765, 9404513, 8166025, 7665994, 07970158, 73518888, 0702253, 5426644 ####[facility] [address] [place] [address] eGFRon 03-13-2024 eGFR 94 mL/min/1.73 m2 Normal >=59 [facility] Comment on above: Order Comment: qns t o run. phlebotomists notified of recollect by message. [id number] 03/13/2024 18:28:21 EDTOrder added by Discern Expert. Performed By: #### 2 9413605, 7726324, 2109866, 8000778, 9964108, 48113436, 71814874, 9653495, 8074703 ####[facility] [address] [place] [address] Amphetamine Screen Ql (U)Ord ered By: Familia Christian on 05-25-2023 Amphetamines Ql (U) Negative Negative [facility] Barbiturates [Presence] in U rine by Screen methodOrdered By: Familia Christian on 05-25-2023 Barbiturates Screen Ql (U) Negative Negative [facility] Benzodiazepines Screen Ql (U )Ordered By: Familia Christian on 05-25-2023 Benzodiazepines Ql (U) Negative Negative [facility] Benzoylecgonine [Presence] i n Urine by Screen methodOrdered By: Familia Christian on 05-25-2023 Benzoylecgonine Screen Ql (U) Negative Negative [facility] Cannabinoids [Presence] in U rine by Screen methodOrdered By: Familia Christian on 05-25-2023 Cannabinoids Screen Ql (U) Positive Negative [facility] Comment on above: These are unconfirme d results and should not be used for legal purposes. Drug Cut-Off Concentration: AMPH 1000 ng/mL NIKOLAS 200 ng/mL SHRAVAN 200 ng/mL COCM 300 ng/mL OP 300 ng/mL PCP 25 ng/mL THC 20 ng/mL HCG ( test) IA.rapi d Ql (U)Ordered By: Familia Christian on 05-25-2023 HCG ( test) Ql (U) Negative [facility] Opiates [Presence] in Urine by Screen methodOrdered By: Familia Christian on 05-25-2023 Opiates Screen Ql (U) Negative Negative [facility] Phencyclidine Screen Ql (U)O rdered By: Familia Christian on 05-25-2023 Phencyclidine Ql (U) Negative Negative [facility] COVID-19 Detected/Not Detect edOrdered By: Modesta Chand on 03-15-2023 SARS-CoV-2 (COVID-19) RNA JANAK+non-probe Ql (Nph) Not detected Not Detecte [facility] Comment on above: This is a duplicate RP2.1 COVID (PCR) result to be used for statistical tracking purpose only. Respiratory pathogens DNA an d RNA panel - Nasopharynx by JANAK with non-probe detectionOrdered By: Modesta Chand on 03-15-2023 Respiratory pathogens DNA and RNA panel JANAK+non-probe (Nph) [facility] Basophils Auto (Bld) [#/Vol] Ordered By: Anette Stout on 01-07-2023 Basophils (Bld) [#/Vol] 0.0 10*3/uL 0.0-0.1 [facility] Basophils/100 WBC Auto (Bld) Ordered By: Anette Stout on 01-07-2023 Basophils/100 WBC (Bld) 0.4 % . [facility] Eosinophils Auto (Bld) [#/Vo l]Ordered By: Anette Stout on 01-07-2023 Eosinophils (Bld) [#/Vol] 0.7 10*3/uL 0.0-0.7 [facility] Eosinophils/100 WBC Auto (Bl d)Ordered By: Anette Stout on 01-07-2023 Eosinophils/100 WBC (Bld) 5.5 % . [facility] Erythrocyte distribution wid th Auto (RBC) [Ratio]Ordered By: Anette Stout on 01-07-2023 Erythrocyte distribution width (RBC) [Ratio] 13.5 % 11.9-15.3 [facility] Estimated glomerular filtrat ion rate (GFR) non- AmericanOrdered By: Anette Stout on 01-07-2023 GFR/1.73 sq M.predicted among non-blacks MDRD (S/P/Bld) [Vol rate/Area] > 60 mL/Min [facility] Hematocrit Auto (Bld) [Volum e fraction]Ordered By: Anette Stout on 01-07-2023 Hematocrit (Bld) [Volume fraction] 41.5 % 36.0-46.0 [facility] Hemoglobin [Mass/volume] in BloodOrdered By: Anette Stout on 01-07-2023 Hemoglobin (Bld) [Mass/Vol] 14.0 g/dL 12.0-16.0 [facility] Leukocytes [#/volume] correc venkata for nucleated erythrocytes in Blood by Automated counOrdered By: Anette Stout on 01-07-2023 WBC corrected for nucl RBC Auto (Bld) [#/Vol] 12.1 10*3/uL 4.5-13.5 [facility] Lymphocytes Auto (Bld) [#/Vo l]Ordered By: Anette Stout on 01-07-2023 Lymphocytes (Bld) [#/Vol] 2.5 10*3/uL 1.20-4.8 [facility] Lymphocytes/100 WBC Auto (Bl d)Ordered By: Anette Stout on 01-07-2023 Lymphocytes/100 WBC (Bld) 20.9 % . [facility] MCH Auto (RBC) [Entitic mass ]Ordered By: Anette Stout on 01-07-2023 MCH (RBC) [Entitic mass] 28.8 pg 25.0-35.0 [facility] MCHC Auto (RBC) [Mass/Vol]Or dered By: Anette Stout on 01-07-2023 MCHC (RBC) [Mass/Vol] 33.7 g/dL 31.0-37.0 [facility] MCV Auto (RBC) [Entitic vol] Ordered By: Anette Stout on 01-07-2023 MCV (RBC) [Entitic vol] 85.5 fL 78-102 [facility] Monocytes Auto (Bld) [#/Vol] Ordered By: Anette Stout on 01-07-2023 Monocytes (Bld) [#/Vol] 0.9 10*3/uL 0.1-1.00 [facility] Monocytes/100 WBC Auto (Bld) Ordered By: Anette Stout on 01-07-2023 Monocytes/100 WBC (Bld) 7.5 % . [facility] Neutrophils Auto (Bld) [#/Vo l]Ordered By: Anette Stout on 01-07-2023 Neutrophils (Bld) [#/Vol] 8.0 10*3/uL 1.2-7.7 [facility] Neutrophils/100 WBC Auto (Bl d)Ordered By: Anette Stout on 01-07-2023 Neutrophils/100 WBC (Bld) 65.7 % . [facility] No Panel InformationOrdered By: Anette Stout on 01-07-2023 > 60 mL/Min [facility] 113.92 [facility] Nucleated erythrocytes [Pres ence] in Blood by Automated countOrdered By: Anette Stout on 01-07-2023 Nucleated RBC Auto Ql (Bld) 0.1 /100{WBC} 0-0.5 [facility] Platelet mean volume Auto (B ld) [Entitic vol]Ordered By: Anette Stout on 01-07-2023 Platelet mean volume (Bld) [Entitic vol] 8.6 fL 6.3-10.7 [facility] Platelets Auto (Bld) [#/Vol] Ordered By: Anette Stout on 01-07-2023 Platelets (Bld) [#/Vol] 222 10*3/uL 150-450 [facility] RBC Auto (Bld) [#/Vol]Ordere d By: Anette Stout on 01-07-2023 RBC (Bld) [#/Vol] 4.85 10*6/uL 4.10-5.10 [facility] Serum or plasma anion gap de terminationOrdered By: Anette Stout on 01-07-2023 Anion gap [Moles/Vol] N/A [facility] Serum or plasma calcium tammy urement (mass/volume)Ordered By: Anette Stout on 01-07-2023 Calcium [Mass/Vol] 8.5 mg/dL 8.2-10.2 [facility] Serum or plasma chloride judy surement (moles/volume)Ordered By: Anette Stout on 01-07-2023 Chloride [Moles/Vol] 103 mmol/L 95-114 [facility] Serum or plasma creatinine m easurement with calculation of estimated glomerular filtrOrdered By: Anette Stout on 01-07-2023 Creatinine and Glomerular filtration rate.predicted panel (S/P/Bld) 0.77 mg/dL 0.44-1.03 [facility] Serum or plasma glucose tammy urement (mass/volume)Ordered By: Anette Stout on 01-07-2023 Glucose [Mass/Vol] 90 mg/dL 70-100 [facility] Serum or plasma potassium me asurement (moles/volume)Ordered By: Eliana Bautista on 01-07-2023 Potassium [Moles/Vol] 3.2 mmol/L 3.5-5.1 [facility] Serum or plasma sodium measu rement (moles/volume)Ordered By: Anette Stout on 01-07-2023 Sodium [Moles/Vol] 134 mmol/L 136-146 [facility] Serum or plasma total carbon dioxide measurement (moles/volume)Ordered By: Anette Stout on 01-07-2023 CO2 [Moles/Vol] 23.4 mmol/L 22.0-30.0 [facility] Serum or plasma urea nitroge n measurement (mass/volume)Ordered By: Anette Stout on 01-07-2023 Urea nitrogen [Mass/Vol] 8 mg/dL 9-23 [facility] WBC Auto (Bld) [#/Vol]Ordere d By: Anette Stout on 01-07-2023 WBC (Bld) [#/Vol] 12.1 10*3/uL 4.5-13.5 [facility] Amphetamine Screen Ql (U)Ord ered By: Anette Stout on 01-06-2023 Amphetamines Ql (U) Negative Negative [facility] Automated erythrocytes count in urine sediment (number/area)Ordered By: Rd Brown on 01-06-2023 RBC Auto (Urine sed) [#/Area] None seen [HPF] 0-4 [facility] Automated leukocytes count i n urine sediment (number/area)Ordered By: Rd Brown on 01-06-2023 WBC Auto (Urine sed) [#/Area] 20-49 [HPF] 0-4 [facility] Automated urine hyaline cast s count (number/volume)Ordered By: Rd Brown on 01-06-2023 Hyaline casts Auto (U) [#/Vol] None seen [LPF] 0-1 [facility] Barbiturates [Presence] in U rineOrdered By: Anette Stout on 01-06-2023 Barbiturates Ql (U) Negative Negative [facility] Basophils Auto (Bld) [#/Vol] Ordered By: Rd Brown on 01-06-2023 Basophils (Bld) [#/Vol] 0.0 10*3/uL 0.0-0.1 [facility] Basophils/100 WBC Auto (Bld) Ordered By: Rd Brown on 01-06-2023 Basophils/100 WBC (Bld) 0.3 % . [facility] Benzodiazepines [Presence] i n UrineOrdered By: Anette Stout on 01-06-2023 Benzodiazepines Ql (U) Negative Negative [facility] Bilirubin Test strip Ql (U)O rdered By: Rd Brown on 01-06-2023 Bilirubin Ql (U) Negative Negative [facility] Body fluid albumin measureme nt (mass/volume)Ordered By: Rd Brown on 01-06-2023 Albumin (Body fld) [Mass/Vol] 4.9 g/dL 3.2-5.5 [facility] Cannabinoids [Presence] in U rine by Screen methodOrdered By: Anette Stout on 01-06-2023 Cannabinoids Screen Ql (U) Positive Negative [facility] Casts typing in urine sedime nt by light microscopyOrdered By: Rd Brown on 01-06-2023 Casts LM Nom (Urine sed) None seen [LPF] None Seen [facility] Color Auto (U)Ordered By: Andrew Brown on 01-06-2023 Color (U) Yellow Yellow [facility] Eosinophils Auto (Bld) [#/Vo l]Ordered By: Rd Brown on 01-06-2023 Eosinophils (Bld) [#/Vol] 0.4 10*3/uL 0.0-0.7 [facility] Eosinophils/100 WBC Auto (Bl d)Ordered By: Rd Brown on 01-06-2023 Eosinophils/100 WBC (Bld) 2.3 % . [facility] Erythrocyte distribution wid th Auto (RBC) [Ratio]Ordered By: Rd Brown on 01-06-2023 Erythrocyte distribution width (RBC) [Ratio] 13.5 % 11.9-15.3 [facility] Estimated glomerular filtrat ion rate (GFR) non- AmericanOrdered By: Rd Brown on 01-06-2023 GFR/1.73 sq M.predicted among non-blacks MDRD (S/P/Bld) [Vol rate/Area] > 60 mL/Min [facility] Globulin Calc (S) [Mass/Vol] Ordered By: Rd Brown on 01-06-2023 Globulin (S) [Mass/Vol] 2.9 g/dL [facility] HCG ( test) IA.rapi d Ql (U)Ordered By: Rd Brown on 01-06-2023 HCG ( test) Ql (U) Negative [facility] Hematocrit Auto (Bld) [Volum e fraction]Ordered By: Rd Brown on 01-06-2023 Hematocrit (Bld) [Volume fraction] 48.3 % 36.0-46.0 [facility] Hemoglobin [Mass/volume] in BloodOrdered By: Rd Brown on 01-06-2023 Hemoglobin (Bld) [Mass/Vol] 16.2 g/dL 12.0-16.0 [facility] Ketones Auto test strip (U) [Mass/Vol]Ordered By: Rd Brown on 01-06-2023 Ketones (U) [Mass/Vol] 4+ [facility] Leukocytes [#/volume] correc venkata for nucleated erythrocytes in Blood by Automated counOrdered By: Rd Brown on 01-06-2023 WBC corrected for nucl RBC Auto (Bld) [#/Vol] 17.7 10*3/uL 4.5-13.5 [facility] Lymphocytes Auto (Bld) [#/Vo l]Ordered By: Rd Brown on 01-06-2023 Lymphocytes (Bld) [#/Vol] 3.5 10*3/uL 1.20-4.8 [facility] Lymphocytes/100 WBC Auto (Bl d)Ordered By: Rd Brown on 01-06-2023 Lymphocytes/100 WBC (Bld) 19.9 % . [facility] MCH Auto (RBC) [Entitic mass ]Ordered By: Rd Brown on 01-06-2023 MCH (RBC) [Entitic mass] 28.7 pg 25.0-35.0 [facility] MCHC Auto (RBC) [Mass/Vol]Or dered By: Rd Brown on 01-06-2023 MCHC (RBC) [Mass/Vol] 33.6 g/dL 31.0-37.0 [facility] MCV Auto (RBC) [Entitic vol] Ordered By: Rd Brown on 01-06-2023 MCV (RBC) [Entitic vol] 85.4 fL 78-102 [facility] Monocyte distribution width [Entitic volume] in Blood by AutomatedOrdered By: Rd Brown on 01-06-2023 Monocyte distribution width Auto (Bld) [Entitic vol] 15.43 % 0.00-20.00 [facility] Monocytes Auto (Bld) [#/Vol] Ordered By: Rd Brown on 01-06-2023 Monocytes (Bld) [#/Vol] 1.3 10*3/uL 0.1-1.00 [facility] Monocytes/100 WBC Auto (Bld) Ordered By: Rd Brown on 01-06-2023 Monocytes/100 WBC (Bld) 7.4 % . [facility] Neutrophils Auto (Bld) [#/Vo l]Ordered By: Rd Brown on 01-06-2023 Neutrophils (Bld) [#/Vol] 12.4 10*3/uL 1.2-7.7 [facility] Neutrophils/100 WBC Auto (Bl d)Ordered By: Rd Brown on 01-06-2023 Neutrophils/100 WBC (Bld) 70.1 % . [facility] Nitrite Test strip Ql (U)Ord ered By: Rd Brown on 01-06-2023 Nitrite Ql (U) Negative Negative [facility] No Panel InformationOrdered By: Anette Stout on 01-06-2023 Negative Negative [facility] No Panel InformationOrdered By: Rd Brown on 01-06-2023 > 60 mL/Min [facility] 31.0 U/L 22-51 [facility] 102.00 [facility] Nucleated erythrocytes [Pres ence] in Blood by Automated countOrdered By: Rd Brown on 01-06-2023 Nucleated RBC Auto Ql (Bld) 0.1 /100{WBC} 0-0.5 [facility] Phencyclidine Screen Ql (U)O rdered By: Anette Stout on 01-06-2023 Phencyclidine Ql (U) Negative Negative [facility] Platelet mean volume Auto (B ld) [Entitic vol]Ordered By: Rd Brown on 01-06-2023 Platelet mean volume (Bld) [Entitic vol] 8.5 fL 6.3-10.7 [facility] Platelets Auto (Bld) [#/Vol] Ordered By: Rd Brown on 01-06-2023 Platelets (Bld) [#/Vol] 296 10*3/uL 150-450 [facility] Protein Auto test strip (U) [Mass/Vol]Ordered By: Rd Brown on 01-06-2023 Protein (U) [Mass/Vol] 100 mg/dL Negative Fi [facility] Protein [Mass/volume] in Ser um or PlasmaOrdered By: Rd Brown on 01-06-2023 Protein [Mass/Vol] 7.8 g/dL 6.1-7.9 [facility] RBC Auto (Bld) [#/Vol]Ordere d By: Rd Brown on 01-06-2023 RBC (Bld) [#/Vol] 5.65 10*6/uL 4.10-5.10 [facility] Serum or plasma alanine florez otransferase measurement without P-5'-P (enzymatic activiOrdered By: Rd Brown on 01-06-2023 ALT No additional P-5'-P [Catalytic activity/Vol] 20 U/L 10-60 [facility] Serum or plasma albumin/glob ulin mass ratioOrdered By: Rd Brown on 01-06-2023 Albumin/Globulin [Mass ratio] 1.7 {ratio} [facility] Serum or plasma alkaline justin sphatase measurement (enzymatic activity/volume)Ordered By: Rd Brown on 01-06-2023 ALP [Catalytic activity/Vol] 66 U/L 32-92 [facility] Serum or plasma anion gap de terminationOrdered By: Rd Brown on 01-06-2023 Anion gap [Moles/Vol] 19.4 mmol/L 6.0-15.0 [facility] Serum or plasma aspartate am inotransferase measurement (enzymatic activity/volume)Ordered By: Rd Brown on 01-06-2023 AST [Catalytic activity/Vol] 20 U/L 10-42 [facility] Serum or plasma calcium tammy urement (mass/volume)Ordered By: Rd Brown on 01-06-2023 Calcium [Mass/Vol] 9.8 mg/dL 8.2-10.2 [facility] Serum or plasma chloride judy surement (moles/volume)Ordered By: Rd Brown on 01-06-2023 Chloride [Moles/Vol] 91 mmol/L 95-114 [facility] Serum or plasma creatinine m easurement with calculation of estimated glomerular filtrOrdered By: Rd Brown on 01-06-2023 Creatinine and Glomerular filtration rate.predicted panel (S/P/Bld) 0.86 mg/dL 0.44-1.03 [facility] Serum or plasma glucose tammy urement (mass/volume)Ordered By: Rd Brown on 01-06-2023 Glucose [Mass/Vol] 80 mg/dL 70-100 [facility] Serum or plasma potassium me asurement (moles/volume)Ordered By: Rd Brown on 01-06-2023 Potassium [Moles/Vol] 2.7 mmol/L 3.5-5.1 [facility] Serum or plasma sodium measu rement (moles/volume)Ordered By: Rd Brown on 01-06-2023 Sodium [Moles/Vol] 132 mmol/L 136-146 [facility] Serum or plasma total biliru bin measurement (mass/volume)Ordered By: Rd Brown on 01-06-2023 Bilirubin [Mass/Vol] 1.5 mg/dL 0.3-1.2 [facility] Serum or plasma total carbon dioxide measurement (moles/volume)Ordered By: Rd Brown on 01-06-2023 CO2 [Moles/Vol] 24.3 mmol/L 22.0-30.0 [facility] Serum or plasma urea nitroge n measurement (mass/volume)Ordered By: Rd Brown on 01-06-2023 Urea nitrogen [Mass/Vol] 19 mg/dL 9-23 [facility] Specific gravity Auto test s trip (U) [Rel density]Ordered By: Rd Brown on 01-06-2023 Specific gravity (U) [Rel density] 1.027 1.001-1.03 0 [facility] Squamous epithelial cells de tection in urine sediment by light microscopyOrdered By: dR Brown on 01-06-2023 Epithelial cells.squamous LM Ql (Urine sed) 10-19 [HPF] 0-2 [facility] Troponin I.cardiac [Mass/vol ume] in Serum or Plasma by High sensitivity methodOrdered By: Federico Randolph on 01-06-2023 Troponin I.cardiac High sensitivity method [Mass/Vol] 6 pg/mL 0-15 [facility] Urine bacteria detection by automated methodOrdered By: Rd Brown on 01-06-2023 Bacteria Auto Ql (U) 1+ None Seen [facility] Urine clarity by refractomet ry automatedOrdered By: Rd Brown on 01-06-2023 Clarity Refractometry automated (U) Cloudy Clear [facility] Urine cocaine detectionOrder ed By: Anette Stout on 01-06-2023 Cocaine Ql (U) Negative Negative [facility] Urine glucose measurement by automated test strip (mass/volume)Ordered By: Rd Brown on 01-06-2023 Glucose Auto test strip (U) [Mass/Vol] Normal mg/dL Normal [facility] Urine hemoglobin detection b y automated test stripOrdered By: Rd Brown on 01-06-2023 Hemoglobin Auto test strip Ql (U) 3+ Negative [facility] Urine lactic acid measuremen tOrdered By: Rd Brown on 01-06-2023 Lactate (U) [Moles/Vol] 1.6 mmol/L 0.5-2.2 [facility] Urine leukocyte esterase det ection by automated test stripOrdered By: Rd Brown on 01-06-2023 Leukocyte esterase Auto test strip Ql (U) 2+ Negative [facility] Urobilinogen Auto test strip (U) [Mass/Vol]Ordered By: Rd Brown on 01-06-2023 Urobilinogen (U) [Mass/Vol] Normal mg/dL Normal [facility] WBC Auto (Bld) [#/Vol]Ordere d By: Rd Brown on 01-06-2023 WBC (Bld) [#/Vol] 17.7 10*3/uL 4.5-13.5 [facility] pH Auto test strip (U)Ordere d By: Rd Brown on 01-06-2023 pH (U) 6.5 [pH] 5.0-9.0 [facility] Albumin [Mass/volume] in Ser um or PlasmaOrdered By: Ravi Arguello on 01-02-2023 Albumin [Mass/Vol] 5.0 g/dL 3.2-5.5 [facility] Automated erythrocytes count in urine sediment (number/area)Ordered By: Ravi Arguello on 01-02-2023 RBC Auto (Urine sed) [#/Area] 3-4 [HPF] 0-4 [facility] Automated leukocytes count i n urine sediment (number/area)Ordered By: Ravi Arguello on 01-02-2023 WBC Auto (Urine sed) [#/Area] 50-100 [HPF] 0-4 [facility] Automated urine hyaline cast s count (number/volume)Ordered By: Ravi Arguello on 01-02-2023 Hyaline casts Auto (U) [#/Vol] None seen [LPF] 0-1 [facility] Basophils Auto (Bld) [#/Vol] Ordered By: Ravi Arguello on 01-02-2023 Basophils (Bld) [#/Vol] 0.1 10*3/uL 0.0-0.1 [facility] Basophils/100 WBC Auto (Bld) Ordered By: Ravi Arguello on 01-02-2023 Basophils/100 WBC (Bld) 0.5 % . [facility] Bilirubin Test strip Ql (U)O rdered By: Ravi Arguello on 01-02-2023 Bilirubin Ql (U) Negative Negative [facility] Casts typing in urine sedime nt by light microscopyOrdered By: Ravi Arguello on 01-02-2023 Casts LM Nom (Urine sed) None seen [LPF] None Seen [facility] Color Auto (U)Ordered By: Gisselle Arguello on 01-02-2023 Color (U) Yellow Yellow [facility] Eosinophils Auto (Bld) [#/Vo l]Ordered By: Ravi Arguello on 01-02-2023 Eosinophils (Bld) [#/Vol] 0.0 10*3/uL 0.0-0.7 [facility] Eosinophils/100 WBC Auto (Bl d)Ordered By: Ravi Arguello on 01-02-2023 Eosinophils/100 WBC (Bld) 0.0 % . [facility] Erythrocyte distribution wid th Auto (RBC) [Ratio]Ordered By: Ravi Arguello on 01-02-2023 Erythrocyte distribution width (RBC) [Ratio] 13.9 % 11.9-15.3 [facility] Estimated glomerular filtrat ion rate (GFR) non- AmericanOrdered By: Ravi Arguello on 01-02-2023 GFR/1.73 sq M.predicted among non-blacks MDRD (S/P/Bld) [Vol rate/Area] > 60 mL/Min [facility] Globulin Calc (S) [Mass/Vol] Ordered By: Ravi Arguello on 01-02-2023 Globulin (S) [Mass/Vol] 2.9 g/dL [facility] HCG ( test) IA.rapi d Ql (U)Ordered By: Ravi Arguello on 01-02-2023 HCG ( test) Ql (U) Negative [facility] Hematocrit Auto (Bld) [Volum e fraction]Ordered By: Ravi Arguello on 01-02-2023 Hematocrit (Bld) [Volume fraction] 42.1 % 36.0-46.0 [facility] Hemoglobin [Mass/volume] in BloodOrdered By: Ravi Arguello on 01-02-2023 Hemoglobin (Bld) [Mass/Vol] 14.0 g/dL 12.0-16.0 [facility] Ketones Auto test strip (U) [Mass/Vol]Ordered By: Ravi Arguello on 01-02-2023 Ketones (U) [Mass/Vol] 3+ Negative Fi [facility] Leukocytes [#/volume] correc venkata for nucleated erythrocytes in Blood by Automated counOrdered By: Ravi Arguello on 01-02-2023 WBC corrected for nucl RBC Auto (Bld) [#/Vol] 14.1 10*3/uL 4.5-13.5 [facility] Lymphocytes Auto (Bld) [#/Vo l]Ordered By: Ravi Arguello on 01-02-2023 Lymphocytes (Bld) [#/Vol] 1.4 10*3/uL 1.20-4.8 [facility] Lymphocytes/100 WBC Auto (Bl d)Ordered By: Ravi Arguello on 01-02-2023 Lymphocytes/100 WBC (Bld) 10.1 % . [facility] MCH Auto (RBC) [Entitic mass ]Ordered By: Ravi Arguello on 01-02-2023 MCH (RBC) [Entitic mass] 28.6 pg 25.0-35.0 [facility] MCHC Auto (RBC) [Mass/Vol]Or dered By: Ravi Arguello on 01-02-2023 MCHC (RBC) [Mass/Vol] 33.2 g/dL 31.0-37.0 [facility] MCV Auto (RBC) [Entitic vol] Ordered By: Ravi Arguello on 01-02-2023 MCV (RBC) [Entitic vol] 86.2 fL 78-102 [facility] Monocyte distribution width [Entitic volume] in Blood by AutomatedOrdered By: Ravi Arguello on 01-02-2023 Monocyte distribution width Auto (Bld) [Entitic vol] 16.52 % 0.00-20.00 [facility] Monocytes Auto (Bld) [#/Vol] Ordered By: Ravi Arguello on 01-02-2023 Monocytes (Bld) [#/Vol] 1.0 10*3/uL 0.1-1.00 [facility] Monocytes/100 WBC Auto (Bld) Ordered By: Ravi Arguello on 01-02-2023 Monocytes/100 WBC (Bld) 7.0 % . [facility] Neutrophils Auto (Bld) [#/Vo l]Ordered By: Ravi Arguello on 01-02-2023 Neutrophils (Bld) [#/Vol] 11.6 10*3/uL 1.2-7.7 [facility] Neutrophils/100 WBC Auto (Bl d)Ordered By: Ravi Arguello on 01-02-2023 Neutrophils/100 WBC (Bld) 82.4 % . [facility] Nitrite Test strip Ql (U)Ord ered By: Ravi Arguello on 01-02-2023 Nitrite Ql (U) Negative Negative [facility] No Panel InformationOrdered By: Ravi Arguello on 01-02-2023 > 60 mL/Min [facility] 29.0 U/L 22-51 [facility] 86.85 [facility] Nucleated erythrocytes [Pres ence] in Blood by Automated countOrdered By: Ravi Arguello on 01-02-2023 Nucleated RBC Auto Ql (Bld) 0.0 /100{WBC} 0-0.5 [facility] Platelet mean volume Auto (B ld) [Entitic vol]Ordered By: Ravi Arguello on 01-02-2023 Platelet mean volume (Bld) [Entitic vol] 8.4 fL 6.3-10.7 [facility] Platelets Auto (Bld) [#/Vol] Ordered By: Ravi Arguello on 01-02-2023 Platelets (Bld) [#/Vol] 299 10*3/uL 150-450 [facility] Protein Auto test strip (U) [Mass/Vol]Ordered By: Ravi Arguello on 01-02-2023 Protein (U) [Mass/Vol] 100 mg/dL Negative [facility] Protein [Mass/volume] in Ser um or PlasmaOrdered By: Ravi Arguello on 01-02-2023 Protein [Mass/Vol] 7.9 g/dL 6.1-7.9 [facility] RBC Auto (Bld) [#/Vol]Ordere d By: Ravi Arguello on 01-02-2023 RBC (Bld) [#/Vol] 4.89 10*6/uL 4.10-5.10 [facility] Serum or plasma alanine florez otransferase measurement without P-5'-P (enzymatic activiOrdered By: Ravi Arguello on 01-02-2023 ALT No additional P-5'-P [Catalytic activity/Vol] 26 U/L 10-60 [facility] Serum or plasma albumin/glob ulin mass ratioOrdered By: Ravi Arguello on 01-02-2023 Albumin/Globulin [Mass ratio] 1.7 {ratio} [facility] Serum or plasma alkaline justin sphatase measurement (enzymatic activity/volume)Ordered By: Ravi Arguello on 01-02-2023 ALP [Catalytic activity/Vol] 60 U/L 32-92 [facility] Serum or plasma anion gap de terminationOrdered By: Ravi Arguello on 01-02-2023 Anion gap [Moles/Vol] 16.4 mmol/L 6.0-15.0 [facility] Serum or plasma aspartate am inotransferase measurement (enzymatic activity/volume)Ordered By: Ravi Arguello on 01-02-2023 AST [Catalytic activity/Vol] 32 U/L 10-42 [facility] Serum or plasma calcium tammy urement (mass/volume)Ordered By: Ravi Arguello on 01-02-2023 Calcium [Mass/Vol] 9.8 mg/dL 8.2-10.2 [facility] Serum or plasma chloride judy surement (moles/volume)Ordered By: Ravi Arguello on 01-02-2023 Chloride [Moles/Vol] 106 mmol/L 95-114 [facility] Serum or plasma creatinine m easurement with calculation of estimated glomerular filtrOrdered By: Ravi Arguello on 01-02-2023 Creatinine and Glomerular filtration rate.predicted panel (S/P/Bld) 1.01 mg/dL 0.44-1.03 [facility] Serum or plasma glucose tammy urement (mass/volume)Ordered By: Ravi Arguello on 01-02-2023 Glucose [Mass/Vol] 123 mg/dL 70-100 [facility] Serum or plasma potassium me asurement (moles/volume)Ordered By: Ravi Arguello on 01-02-2023 Potassium [Moles/Vol] 3.2 mmol/L 3.5-5.1 [facility] Serum or plasma sodium measu rement (moles/volume)Ordered By: Ravi Arguello on 01-02-2023 Sodium [Moles/Vol] 142 mmol/L 136-146 [facility] Serum or plasma total biliru bin measurement (mass/volume)Ordered By: Ravi Arguello on 01-02-2023 Bilirubin [Mass/Vol] 0.8 mg/dL 0.3-1.2 [facility] Serum or plasma total carbon dioxide measurement (moles/volume)Ordered By: Ravi Arguello on 01-02-2023 CO2 [Moles/Vol] 22.8 mmol/L 22.0-30.0 [facility] Serum or plasma urea nitroge n measurement (mass/volume)Ordered By: Ravi Arguello on 01-02-2023 Urea nitrogen [Mass/Vol] 22 mg/dL 9-23 [facility] Specific gravity Auto test s trip (U) [Rel density]Ordered By: Ravi Arguello on 01-02-2023 Specific gravity (U) [Rel density] 1.036 1.001-1.03 0 [facility] Squamous epithelial cells de tection in urine sediment by light microscopyOrdered By: Ravi Arguello on 01-02-2023 Epithelial cells.squamous LM Ql (Urine sed) Innumerable [HPF] 0-2 [facility] Urine bacteria detection by automated methodOrdered By: Ravi Arguello on 01-02-2023 Bacteria Auto Ql (U) 3+ None Seen [facility] Urine clarity by refractomet ry automatedOrdered By: Ravi Arguello on 01-02-2023 Clarity Refractometry automated (U) Turbid Clear [facility] Urine culture routineOrdered By: Ravi Arguello on 01-02-2023 Bacteria identified Cx Nom (U) [facility] Urine glucose measurement by automated test strip (mass/volume)Ordered By: Ravi Arguello on 01-02-2023 Glucose Auto test strip (U) [Mass/Vol] Normal mg/dL Normal [facility] Urine hemoglobin detection b y automated test stripOrdered By: Ravi Arguello on 01-02-2023 Hemoglobin Auto test strip Ql (U) Negative Negative [facility] Urine leukocyte esterase det ection by automated test stripOrdered By: Ravi Topetegisselle on 01-02-2023 Leukocyte esterase Auto test strip Ql (U) 3+ Negative [facility] Urobilinogen Auto test strip (U) [Mass/Vol]Ordered By: Ravi Topetegisselle on 01-02-2023 Urobilinogen (U) [Mass/Vol] Normal mg/dL Normal [facility] WBC Auto (Bld) [#/Vol]Ordere d By: Ravi Topetegisselle on 01-02-2023 WBC (Bld) [#/Vol] 14.1 10*3/uL 4.5-13.5 [facility] pH Auto test strip (U)Ordere d By: Ravi Saundra on 01-02-2023 pH (U) 6.0 [pH] 5.0-9.0 [facility] CULTURE URINEon 01-01-2023 CULTURE URINE Culture Observations : LIGHT GROWTH OF MIXED GENITAL JORI. NO POTENTIAL PATHOGENS SEEN. Normal [facility] Comment on above: Performed By: #### U RCX #### [facility] [address] [address] [address] Dacia Ackerman Covid-19 PCR ([facility])on SARS-CoV-2 (COVID-19) RNA JANAK+probe Ql (Unsp spec) Not detected Normal NOT DETECTED [facility] Comment on above: Result Comment: When diagnostic [...] for this test is supported by the [employer] and Human [employer]'s declaration that [...] By: #### C VDTBH #### [facility] [address] [place] [address] Dr. Dacia Ackerman DRUG SCREEN RAPID (URINE)on 01-01-2023 AMP Negative Normal NEGATIVE [facility] Comment on above: Performed By: #### D RUGRPD #### [facility] [address] [place] [address] Dr. Dacia Ackerman BAR Negative Normal NEGATIVE [facility] Comment on above: Performed By: #### D RUGRPD #### [facility] [address] [place] [address] Dr. Dacia Ackerman BUP Negative Normal NEGATIVE [facility] Comment on above: Performed By: #### D RUGRPD #### [facility] [address] [place] [address] Dr. Dacia Ackerman BZO Negative Normal NEGATIVE [facility] Comment on above: Performed By: #### D RUGRPD #### [facility] [address] [place] [address] Dr. Dacia Ackerman MELINA Negative Normal NEGATIVE [facility] Comment on above: Performed By: #### D RUGRPD #### [facility] [address] [place] [address] Dr. Dacia Ackerman CUT-OFFS SEE BELOW Normal [facility] Comment on above: Result Comment: AMP (Amphetamine): [...] By: #### D RUGRPD #### [facility] [address] [place] [address] Dr. Dacia Ackerman DRUG CUT HEADER DRUG CLASS TEST SYST EM CUT-OFF CONCENTRATIONS ARE FOLLOWS: Normal [facility] Comment on above: Performed By: #### D RUGRPD #### [facility] [address] [place] [address] Dr. Dacia Ackerman mAMP Negative Normal NEGATIVE [facility] Comment on above: Performed By: #### D RUGRPD #### [facility] [address] [place] [address] Dr. Dacia Ackerman MTD Negative Normal NEGATIVE [facility] Comment on above: Performed By: #### D RUGRPD #### [facility] [address] [place] [address] Dr. Dacia Ackerman OPI Negative Normal NEGATIVE [facility] Comment on above: Performed By: #### D RUGRPD #### [facility] [address] [place] [address] Dr. Dacia Ackerman OXY Negative Normal NEGATIVE [facility] Comment on above: Performed By: #### D RUGRPD #### [facility] Laboratory [address] [address] [address] Dacia Ackerman PCP Negative Normal NEGATIVE [facility] Comment on above: Performed By: #### D RUGRPD #### [facility] Laboratory [address] [place] [address] Dr. Dacia Ackerman PPX Negative Normal NEGATIVE [facility] Comment on above: Performed By: #### D RUGRPD #### [facility] Laboratory [address] [place] [address] Dr. Dacia Ackerman TCA Negative Normal NEGATIVE [facility] Comment on above: Performed By: #### D RUGRPD #### [facility] Laboratory [address] [place] [address] Dr. Dacia Ackerman THC Positive Abnormal NEGATIVE [facility] Comment on above: Performed By: #### D RUGRPD #### [facility] Laboratory [address] [place] [address] Dr. Dacia Ackerman ER URINE PROFILEon 02-04-202 3 Bilirubin Ql (U) SMALL Abnormal NEGATIVE [facility] Comment on above: Performed By: #### P REGU, ERUR, UMICRO #### [facility] Laboratory [address] [place] [address] Dr. Dacia Ackerman Clarity (U) CLEAR Normal CLEAR [facility] Comment on above: Performed By: #### P REGU, ERUR, UMICRO #### [facility] Laboratory [address] [address] [address] Dacia Ackerman Color (U) YELLOW Normal YELLOW [facility] Comment on above: Performed By: #### P REGU, ERUR, UMICRO #### [facility] Laboratory [address] [address] [address] Dacia OLIVAS A micrscopic examina tion will be performed if indicated. Normal [facility] Comment on above: Performed By: #### P REGU, ERUR, UMICRO #### [facility] Laboratory [address] [place] [address] Dr. Dacia Ackerman Glucose Ql (U) Negative Normal NEGATIVE [facility] Comment on above: Performed By: #### P REGU, ERUR, UMICRO #### [facility] Laboratory [address] [place] [address] Dr. Dacia Ackerman Hemoglobin Ql (U) Negative Normal NEGATIVE [facility] Comment on above: Performed By: #### P REGU, ERUR, UMICRO #### [facility] Laboratory [address] [address] [address] Dacia Ackerman Ketones Ql (U) >=80 Abnormal NEGATIVE [facility] Comment on above: Performed By: #### P REGU, ERUR, UMICRO #### [facility] Laboratory [address] [address] [address] Dacia Ackerman LEUKOCYTES TRACE Abnormal NEGATIVE [facility] Comment on above: Performed By: #### P REGU, ERUR, UMICRO #### [facility] Laboratory [address] [place] [address] Dr. Dacia Ackerman Nitrite Ql (U) Negative Normal NEGATIVE [facility] Comment on above: Performed By: #### P REGU, ERUR, UMICRO #### [facility] Laboratory [address] [place] [address] Dr. Dacia Ackerman pH (U) 7.5 [pH] Normal 5-9 [facility] Comment on above: Performed By: #### P REGU, ERUR, UMICRO #### [facility] Laboratory [address] [place] [address] Dr. Dacia Ackerman Protein (U) [Mass/Vol] 100 mg/dL Abnormal NEGAT JOAO/ TRACE [facility] Comment on above: Performed By: #### P REGU, ERUR, UMICRO #### [facility] Laboratory [address] [place] [address] Dr. Dacia Ackerman SPEC GRAVITY 1.020 Normal 1.005-<=1. 025 [facility] Comment on above: Performed By: #### P REGU, ERUR, UMICRO #### [facility] Laboratory [address] [place] [address] Dr. Dacia Ackerman UR MICRO IND INDICATED Normal [facility] Comment on above: Performed By: #### P REGU, ERUR, UMICRO #### [facility] Laboratory [address] [place] [address] Dr. Dacia Ackerman Urobilinogen Qn (U) 1.0 {Kaykay'U}/dL Normal 0.2 - 1. 0 [facility] Comment on above: Performed By: #### P REGU, ERUR, UMICRO #### [facility] Laboratory [address] [place] [address] Dr. Dacia Ackerman INFLUENZA A AND B AGon 01-01 INFLUANEGH SEE BELOW Normal [facility] Comment on above: Result Comment: Nega tive for Flu A protein angiten. Infection due to Flu A cannot be ruled out. Flu A angiten in the sample may be below the detection limit of the test. Performed By: #### I NFLUAB #### [facility] Laboratory [address] [place] [address] Dr. Dacia Ackerman INFLUBNEGH SEE BELOW Normal [facility] Comment on above: Result Comment: Nega tive for Flu B protein antigen. Infection due to Flu B cannot be ruled out. Flu B antigen in the sample may be below the detection limit of the test. Performed By: #### I NFLUAB #### [facility] Laboratory [address] [place] [address] Dr. Dacia Ackerman INFLUENZA A AG Negative Normal NEGATIVE SEE COMMENT [facility] Comment on above: Performed By: #### I NFLUAB #### [facility] Laboratory [address] [place] [address] Dr. Dacia Ackerman INFLUENZA B AG Negative Normal NEGATIVE SEE COMMENT [facility] Comment on above: Performed By: #### I NFLUAB #### [facility] Laboratory [address] [place] [address] Dr. Dacia Ackerman URon 01-01-2023 , QUAL Negative Normal NEGATIVE [facility] Comment on above: Performed By: #### P REGU, ERUR, UMICRO #### [facility] Laboratory [address] [place] [address] Dr. Dacia Ackerman URINE MICROSCOPIC ONLYon BACTERIA MODERATE Abnormal NONE SEEN The [facility] Comment on above: Performed By: #### P REGU, ERUR, UMICRO #### [facility] Laboratory [address] [place] [address] Dr. Dacia Ackerman Bacteria identified Cx Nom (U) INDICATED Normal [facility] Comment on above: Performed By: #### P REGU, ERUR, UMICRO #### [facility] Laboratory [address] [place] [address] Dr. Dacia Ackerman CAST NONE SEEN Normal NONE SEEN [facility] Comment on above: Performed By: #### P REGU, ERUR, UMICRO #### [facility] Laboratory [address] [place] [address] Dr. Dacia Ackerman Crystals LM Nom (Urine sed) NONE SEEN Normal NONE SEEN [facility] Comment on above: Performed By: #### P REGU, ERUR, UMICRO #### [facility] Laboratory [address] [place] [address] Dr. Dacia Ackerman Epithelial cells LM Ql (Urine sed) MANY Abnormal NONE SEEN /RARE [facility] Comment on above: Performed By: #### P REGU, ERUR, UMICRO #### [facility] Laboratory [address] [address] [address] Dacia Ackerman MUCOUS SMALL Abnormal NONE SEEN [facility] Comment on above: Performed By: #### P REGU, ERUR, UMICRO #### [facility] [address] [address] [address] Dacia Ackerman RBC NONE SEEN Abnormal 0-2 [facility] Comment on above: Performed By: #### P REGU, ERUR, UMICRO #### [facility] [address] [address] [address] Dacia Ackerman WBC 5-10 Abnormal NONE SEEN [facility] Comment on above: Performed By: #### P REGU, ERUR, UMICRO #### [facility] [address] [address] [address] Dacia Ackerman XR CHEST 1 Von [...] Date: 2023-01-01 13:00 Normal [facility] Automated erythrocytes count in urine sediment (number/area)Ordered By: Federico Randolph on 12-31-2022 RBC Auto (Urine sed) [#/Area] 0-1 [HPF] 0-4 [facility] Automated leukocytes count i n urine sediment (number/area)Ordered By: Federico Randolph on 12-31-2022 WBC Auto (Urine sed) [#/Area] 20-49 [HPF] 0-4 [facility] Bacteria identified Cx Nom ( U)Ordered By: Federico Randolph on 12-31-2022 Urine culture routine Staphylococcus epidermidis [facility] Bilirubin Test strip Ql (U)O rdered By: Federico Randolph on 12-31-2022 Bilirubin Ql (U) Negative Negative [facility] COVID-19 SOFIAOrdered By: Deep Randolph on 12-31-2022 SARS-CoV+SARS-CoV-2 (COVID-19) Ag IA.rapid Ql (Resp) Negative Negative [facility] Casts typing in urine sedime nt by light microscopyOrdered By: Federico Randolph on 12-31-2022 Casts LM Nom (Urine sed) None seen [LPF] None Seen [facility] Color Auto (U)Ordered By: Deep Randolph on 12-31-2022 Color (U) Yellow Yellow [facility] HCG ( test) IA.rapi d Ql (U)Ordered By: Federico Randolph on 12-31-2022 HCG ( test) Ql (U) Negative [facility] Influenza virus A and B anti gen detection by immunoassayOrdered By: Federico Randolph on 12-31-2022 FLUAV+FLUBV Ag IA Ql (Unsp spec) [facility] Ketones Auto test strip (U) [Mass/Vol]Ordered By: Federico Randolph on 12-31-2022 Ketones (U) [Mass/Vol] 3+ Negative [facility] Nitrite Test strip Ql (U)Ord ered By: Federico Randolph on 12-31-2022 Nitrite Ql (U) Negative Negative [facility] No Panel InformationOrdered By: Federico Randolph on 12-31-2022 None seen [LPF] 0-8 [facility] Protein Auto test strip (U) [Mass/Vol]Ordered By: Federico Randolph on 12-31-2022 Protein (U) [Mass/Vol] 100 mg/dL Negative [facility] Specific gravity Auto test s trip (U) [Rel density]Ordered By: Federico Randolph on 12-31-2022 Specific gravity (U) [Rel density] 1.026 1.001-1.03 0 [facility] Squamous epithelial cells de tection in urine sediment by light microscopyOrdered By: Federico Randolph on 12-31-2022 Epithelial cells.squamous LM Ql (Urine sed) Innumerable [HPF] 0-2 [facility] Urine bacteria detection by automated methodOrdered By: Federico Randolph on 12-31-2022 Bacteria Auto Ql (U) 3+ None Seen [facility] Urine clarity by refractomet ry automatedOrdered By: Federico Randolph on 12-31-2022 Clarity Refractometry automated (U) Turbid Clear [facility] Urine glucose measurement by automated test strip (mass/volume)Ordered By: Federico Randolph on 12-31-2022 Glucose Auto test strip (U) [Mass/Vol] Normal mg/dL Normal [facility] Urine hemoglobin detection b y automated test stripOrdered By: Federico Randolph on 12-31-2022 Hemoglobin Auto test strip Ql (U) Negative Negative [facility] Urine leukocyte esterase det ection by automated test stripOrdered By: Federico Randolph on 12-31-2022 Leukocyte esterase Auto test strip Ql (U) 2+ Negative [facility] Urobilinogen Auto test strip (U) [Mass/Vol]Ordered By: Federico Randolph on 12-31-2022 Urobilinogen (U) [Mass/Vol] Normal mg/dL Normal [facility] pH Auto test strip (U)Ordere d By: Federico Randolph on 12-31-2022 pH (U) [pH] 5.0-9.0 [facility] Amphetamine Screen Ql (U)Ord ered By: Dixon Newberry on 11-09-2022 Amphetamines Ql (U) Negative Negative [facility] Barbiturates [Presence] in U rineOrdered By: Dixon Newberry on 11-09-2022 Barbiturates Ql (U) Negative Negative [facility] Basophils Auto (Bld) [#/Vol] Ordered By: Dixon Newberry on 11-09-2022 Basophils (Bld) [#/Vol] 0.0 10*3/uL 0.0-0.1 [facility] Basophils/100 WBC Auto (Bld) Ordered By: Dixon Newberry on 11-09-2022 Basophils/100 WBC (Bld) 0.3 % . [facility] Benzodiazepines [Presence] i n UrineOrdered By: Dixon Newberry on 11-09-2022 Benzodiazepines Ql (U) Negative Negative [facility] Bilirubin Test strip Ql (U)O rdered By: Dixon Newberry on 11-09-2022 Bilirubin Ql (U) Negative Negative [facility] Body fluid albumin measureme nt (mass/volume)Ordered By: Dixon Newberry on 11-09-2022 Albumin (Body fld) [Mass/Vol] 4.2 g/dL 3.2-5.5 [facility] Cannabinoids [Presence] in U rine by Screen methodOrdered By: Dixon Newberry on 11-09-2022 Cannabinoids Screen Ql (U) Positive Negative [facility] Color Auto (U)Ordered By: Nazia Newberry on 11-09-2022 Color (U) Yellow Yellow [facility] Eosinophils Auto (Bld) [#/Vo l]Ordered By: Dixon Newberry on 11-09-2022 Eosinophils (Bld) [#/Vol] 0.1 10*3/uL 0.0-0.7 [facility] Eosinophils/100 WBC Auto (Bl d)Ordered By: Dixon Newberry on 11-09-2022 Eosinophils/100 WBC (Bld) 0.8 % . [facility] Erythrocyte distribution wid th Auto (RBC) [Ratio]Ordered By: Dixon Newberry on 11-09-2022 Erythrocyte distribution width (RBC) [Ratio] 13.8 % 11.9-15.3 [facility] Estimated glomerular filtrat ion rate (GFR) non- AmericanOrdered By: Dixon Newberry on 11-09-2022 GFR/1.73 sq M.predicted among non-blacks MDRD (S/P/Bld) [Vol rate/Area] > 60 mL/Min [facility] Globulin Calc (S) [Mass/Vol] Ordered By: Dixon Newberry on 11-09-2022 Globulin (S) [Mass/Vol] 2.4 g/dL [facility] HCG ( test) IA.rapi d Ql (U)Ordered By: Dixon Newberry on 11-09-2022 HCG ( test) Ql (U) Negative [facility] Hematocrit Auto (Bld) [Volum e fraction]Ordered By: Dixon Newberry on 11-09-2022 Hematocrit (Bld) [Volume fraction] 41.0 % 36.0-46.0 [facility] Hemoglobin [Mass/volume] in BloodOrdered By: Dixon Newberry on 11-09-2022 Hemoglobin (Bld) [Mass/Vol] 13.4 g/dL 12.0-16.0 [facility] Ketones Auto test strip (U) [Mass/Vol]Ordered By: Dixon Newberry on 11-09-2022 Ketones (U) [Mass/Vol] Negative Negative [facility] Leukocytes [#/volume] correc venkata for nucleated erythrocytes in Blood by Automated counOrdered By: Dixon Newberry on 11-09-2022 WBC corrected for nucl RBC Auto (Bld) [#/Vol] 11.7 10*3/uL 4.5-13.5 [facility] Lymphocytes Auto (Bld) [#/Vo l]Ordered By: Dixon Newberry on 11-09-2022 Lymphocytes (Bld) [#/Vol] 1.4 10*3/uL 1.20-4.8 [facility] Lymphocytes/100 WBC Auto (Bl d)Ordered By: Dixon Newberry on 11-09-2022 Lymphocytes/100 WBC (Bld) 12.1 % . [facility] MCH Auto (RBC) [Entitic mass ]Ordered By: Dixon Newberry on 11-09-2022 MCH (RBC) [Entitic mass] 28.1 pg 25.0-35.0 [facility] MCHC Auto (RBC) [Mass/Vol]Or dered By: Dixon Newberry on 11-09-2022 MCHC (RBC) [Mass/Vol] 32.8 g/dL 31.0-37.0 [facility] MCV Auto (RBC) [Entitic vol] Ordered By: Dixon Newberry on 11-09-2022 MCV (RBC) [Entitic vol] 85.7 fL 78-102 [facility] Monocyte distribution width [Entitic volume] in Blood by AutomatedOrdered By: Dixon Newberry on 11-09-2022 Monocyte distribution width Auto (Bld) [Entitic vol] 16.08 % 0.00-20.00 [facility] Monocytes Auto (Bld) [#/Vol] Ordered By: Dixon Newberry on 11-09-2022 Monocytes (Bld) [#/Vol] 0.5 10*3/uL 0.1-1.00 [facility] Monocytes/100 WBC Auto (Bld) Ordered By: Dixon Newberry on 11-09-2022 Monocytes/100 WBC (Bld) 4.7 % . [facility] Neutrophils Auto (Bld) [#/Vo l]Ordered By: Dixon Newberry on 11-09-2022 Neutrophils (Bld) [#/Vol] 9.6 10*3/uL 1.2-7.7 [facility] Neutrophils/100 WBC Auto (Bl d)Ordered By: Dixon Newberry on 11-09-2022 Neutrophils/100 WBC (Bld) 82.1 % . [facility] Nitrite Test strip Ql (U)Ord ered By: Dixon Newberry on 11-09-2022 Nitrite Ql (U) Negative Negative [facility] No Panel InformationOrdered By: Dixon Newberry on 11-09-2022 Negative Negative [facility] > 60 mL/Min [facility] 118.86 [facility] Nucleated erythrocytes [Pres ence] in Blood by Automated countOrdered By: Dixon Newberry on 11-09-2022 Nucleated RBC Auto Ql (Bld) 0.1 /100{WBC} 0-0.5 [facility] Phencyclidine Screen Ql (U)O rdered By: Dixon Newberry on 11-09-2022 Phencyclidine Ql (U) Negative Negative [facility] Platelet mean volume Auto (B ld) [Entitic vol]Ordered By: Dixon Newberry on 11-09-2022 Platelet mean volume (Bld) [Entitic vol] 8.5 fL 6.3-10.7 [facility] Platelets Auto (Bld) [#/Vol] Ordered By: Dixon Newberry on 11-09-2022 Platelets (Bld) [#/Vol] 274 10*3/uL 150-450 [facility] Protein Auto test strip (U) [Mass/Vol]Ordered By: Dixon Newberry on 11-09-2022 Protein (U) [Mass/Vol] Negative Negative [facility] Protein [Mass/volume] in Ser um or PlasmaOrdered By: Dixon Newberry on 11-09-2022 Protein [Mass/Vol] 6.6 g/dL 6.1-7.9 [facility] RBC Auto (Bld) [#/Vol]Ordere d By: Dixon Newberry on 11-09-2022 RBC (Bld) [#/Vol] 4.78 10*6/uL 4.10-5.10 [facility] Serum or plasma alanine florez otransferase measurement without P-5'-P (enzymatic activiOrdered By: Dixon Newberry on 11-09-2022 ALT No additional P-5'-P [Catalytic activity/Vol] 67 U/L 10-60 [facility] Serum or plasma albumin/glob ulin mass ratioOrdered By: Dixon Newberry on 11-09-2022 Albumin/Globulin [Mass ratio] 1.8 {ratio} [facility] Serum or plasma alkaline justin sphatase measurement (enzymatic activity/volume)Ordered By: Dixon Newberry on 11-09-2022 ALP [Catalytic activity/Vol] 59 U/L 32-92 [facility] Serum or plasma anion gap de terminationOrdered By: Dixon Newberry on 11-09-2022 Anion gap [Moles/Vol] 19.7 mmol/L 6.0-15.0 [facility] Serum or plasma aspartate am inotransferase measurement (enzymatic activity/volume)Ordered By: Dixon Newberry on 11-09-2022 AST [Catalytic activity/Vol] 48 U/L 10-42 [facility] Serum or plasma calcium tammy urement (mass/volume)Ordered By: Dixon Newberry on 11-09-2022 Calcium [Mass/Vol] 9.6 mg/dL 8.2-10.2 [facility] Serum or plasma chloride judy surement (moles/volume)Ordered By: Dixon Newberry on 11-09-2022 Chloride [Moles/Vol] 98 mmol/L 95-114 [facility] Serum or plasma creatinine m easurement with calculation of estimated glomerular filtrOrdered By: Dixon Newberry on 11-09-2022 Creatinine and Glomerular filtration rate.predicted panel (S/P/Bld) 0.76 mg/dL 0.44-1.03 [facility] Serum or plasma glucose tammy urement (mass/volume)Ordered By: Dixon Newberry on 11-09-2022 Glucose [Mass/Vol] 110 mg/dL 70-100 [facility] Serum or plasma potassium me asurement (moles/volume)Ordered By: Dixon Newberry on 11-09-2022 Potassium [Moles/Vol] 3.4 mmol/L 3.5-5.1 [facility] Serum or plasma sodium measu rement (moles/volume)Ordered By: Dixon Newberry on 11-09-2022 Sodium [Moles/Vol] 137 mmol/L 136-146 [facility] Serum or plasma total biliru bin measurement (mass/volume)Ordered By: Dixon Newberry on 11-09-2022 Bilirubin [Mass/Vol] 0.5 mg/dL 0.3-1.2 [facility] Serum or plasma total carbon dioxide measurement (moles/volume)Ordered By: Dixon Newberry on 11-09-2022 CO2 [Moles/Vol] 22.7 mmol/L 22.0-30.0 [facility] Serum or plasma urea nitroge n measurement (mass/volume)Ordered By: Dixon Newberry on 11-09-2022 Urea nitrogen [Mass/Vol] 3 mg/dL 9-23 [facility] Specific gravity Auto test s trip (U) [Rel density]Ordered By: Dixon Newberry on 11-09-2022 Specific gravity (U) [Rel density] 1.009 1.001-1.03 0 [facility] Urine clarity by refractomet ry automatedOrdered By: Dixon Newberry on 11-09-2022 Clarity Refractometry automated (U) Clear Clear [facility] Urine cocaine detectionOrder ed By: Dixon Newberry on 11-09-2022 Cocaine Ql (U) Negative Negative [facility] Urine glucose measurement by automated test strip (mass/volume)Ordered By: Dixon Newberry on 11-09-2022 Glucose Auto test strip (U) [Mass/Vol] Normal mg/dL Normal [facility] Urine hemoglobin detection b y automated test stripOrdered By: Dixon Newberry on 11-09-2022 Hemoglobin Auto test strip Ql (U) Negative Negative [facility] Urine leukocyte esterase det ection by automated test stripOrdered By: Dixon Newberry on 11-09-2022 Leukocyte esterase Auto test strip Ql (U) Negative Negative [facility] Urobilinogen Auto test strip (U) [Mass/Vol]Ordered By: Dixon Newberry on 11-09-2022 Urobilinogen (U) [Mass/Vol] Normal mg/dL Normal [facility] WBC Auto (Bld) [#/Vol]Ordere d By: Dixon Newberry on 11-09-2022 WBC (Bld) [#/Vol] 11.7 10*3/uL 4.5-13.5 [facility] pH Auto test strip (U)Ordere d By: Dixon Newberry on 11-09-2022 pH (U) [pH] 5.0-9.0 [facility] Albumin [Mass/volume] in Ser um or PlasmaOrdered By: Art Bianchi on 11-07-2022 Albumin [Mass/Vol] 4.6 g/dL 3.2-5.5 [facility] Automated erythrocytes count in urine sediment (number/area)Ordered By: Art Bianchi on 11-07-2022 RBC Auto (Urine sed) [#/Area] 0-1 [HPF] 0-4 [facility] Automated leukocytes count i n urine sediment (number/area)Ordered By: Art Bianchi on 11-07-2022 WBC Auto (Urine sed) [#/Area] 3-4 [HPF] 0-4 [facility] Basophils Auto (Bld) [#/Vol] Ordered By: Art Bianchi on 11-07-2022 Basophils (Bld) [#/Vol] 0.1 10*3/uL 0.0-0.1 [facility] Basophils/100 WBC Auto (Bld) Ordered By: Art Bianchi on 11-07-2022 Basophils/100 WBC (Bld) 1.0 % . [facility] Bilirubin Test strip Ql (U)O rdered By: Art Bianchi on 11-07-2022 Bilirubin Ql (U) Negative Negative [facility] Color Auto (U)Ordered By: Adrian Bianchi on 11-07-2022 Color (U) Yellow Yellow [facility] Eosinophils Auto (Bld) [#/Vo l]Ordered By: Art Bianchi on 11-07-2022 Eosinophils (Bld) [#/Vol] 0.1 10*3/uL 0.0-0.7 [facility] Eosinophils/100 WBC Auto (Bl d)Ordered By: Art Bianchi on 11-07-2022 Eosinophils/100 WBC (Bld) 1.2 % . [facility] Erythrocyte distribution wid th Auto (RBC) [Ratio]Ordered By: Art Bianchi on 11-07-2022 Erythrocyte distribution width (RBC) [Ratio] 14.0 % 11.9-15.3 [facility] Estimated glomerular filtrat ion rate (GFR) non- AmericanOrdered By: Art Bianchi on 11-07-2022 GFR/1.73 sq M.predicted among non-blacks MDRD (S/P/Bld) [Vol rate/Area] > 60 mL/Min [facility] Globulin Calc (S) [Mass/Vol] Ordered By: Art Bianchi on 11-07-2022 Globulin (S) [Mass/Vol] 2.7 g/dL [facility] HCG ( test) IA.rapi d Ql (U)Ordered By: Art Bianchi on 11-07-2022 HCG ( test) Ql (U) Negative [facility] Hematocrit Auto (Bld) [Volum e fraction]Ordered By: Art Bianchi on 11-07-2022 Hematocrit (Bld) [Volume fraction] 43.2 % 36.0-46.0 [facility] Hemoglobin [Mass/volume] in BloodOrdered By: Art Bianchi on 11-07-2022 Hemoglobin (Bld) [Mass/Vol] 14.8 g/dL 12.0-16.0 [facility] Ketones Auto test strip (U) [Mass/Vol]Ordered By: Art Bianchi on 11-07-2022 Ketones (U) [Mass/Vol] 1+ [facility]uk[facility] [#/volume] correc venkata for nucleated erythrocytes in Blood by Automated counOrdered By: Art Bianchi on 11-07-2022 WBC corrected for nucl RBC Auto (Bld) [#/Vol] 10.3 10*3/uL 4.5-13.5 [facility] Lymphocytes Auto (Bld) [#/Vo l]Ordered By: Art Bianchi on 11-07-2022 Lymphocytes (Bld) [#/Vol] 2.1 10*3/uL 1.20-4.8 [facility] Lymphocytes/100 WBC Auto (Bl d)Ordered By: Art Bianchi on 11-07-2022 Lymphocytes/100 WBC (Bld) 20.8 % . [facility] MCH Auto (RBC) [Entitic mass ]Ordered By: Art Bianchi on 11-07-2022 MCH (RBC) [Entitic mass] 28.8 pg 25.0-35.0 [facility] MCHC Auto (RBC) [Mass/Vol]Or dered By: Art Bianchi on 11-07-2022 MCHC (RBC) [Mass/Vol] 34.3 g/dL 31.0-37.0 [facility] MCV Auto (RBC) [Entitic vol] Ordered By: Art Bianchi on 11-07-2022 MCV (RBC) [Entitic vol] 84.1 fL 78-102 [facility] Monocyte distribution width [Entitic volume] in Blood by AutomatedOrdered By: Art Bianchi on 11-07-2022 Monocyte distribution width Auto (Bld) [Entitic vol] 17.07 % 0.00-20.00 [facility] Monocytes Auto (Bld) [#/Vol] Ordered By: Art Bianchi on 11-07-2022 Monocytes (Bld) [#/Vol] 0.8 10*3/uL 0.1-1.00 [facility] Monocytes/100 WBC Auto (Bld) Ordered By: Art Bianchi on 11-07-2022 Monocytes/100 WBC (Bld) 8.1 % . [facility] Neutrophils Auto (Bld) [#/Vo l]Ordered By: Art Bianchi on 11-07-2022 Neutrophils (Bld) [#/Vol] 7.1 10*3/uL 1.2-7.7 [facility] Neutrophils/100 WBC Auto (Bl d)Ordered By: Art Bianchi on 11-07-2022 Neutrophils/100 WBC (Bld) 68.9 % . [facility] Nitrite Test strip Ql (U)Ord ered By: Art Bianchi on 11-07-2022 Nitrite Ql (U) Negative Negative [facility] No Panel InformationOrdered By: Art Bianchi on 11-07-2022 0-8 [LPF] 0-8 [facility] > 60 mL/Min [facility] 43.0 U/L 22-51 [facility] 104.35 [facility] Nucleated erythrocytes [Pres ence] in Blood by Automated countOrdered By: Art Bianchi on 11-07-2022 Nucleated RBC Auto Ql (Bld) 0.3 /100{WBC} 0-0.5 [facility] Platelet mean volume Auto (B ld) [Entitic vol]Ordered By: Art Bianchi on 11-07-2022 Platelet mean volume (Bld) [Entitic vol] 8.4 fL 6.3-10.7 [facility] Platelets Auto (Bld) [#/Vol] Ordered By: Art Bianchi on 11-07-2022 Platelets (Bld) [#/Vol] 308 10*3/uL 150-450 [facility] Protein Auto test strip (U) [Mass/Vol]Ordered By: Art Bianchi on 11-07-2022 Protein (U) [Mass/Vol] Trace mg/dL Negative [facility] Protein [Mass/volume] in Ser um or PlasmaOrdered By: Art Bianchi on 11-07-2022 Protein [Mass/Vol] 7.3 g/dL 6.1-7.9 [facility] RBC Auto (Bld) [#/Vol]Ordere d By: Art Bianchi on 11-07-2022 RBC (Bld) [#/Vol] 5.14 10*6/uL 4.10-5.10 [facility] Serum or plasma alanine florez otransferase measurement without P-5'-P (enzymatic activiOrdered By: Art Bianchi on 11-07-2022 ALT No additional P-5'-P [Catalytic activity/Vol] 24 U/L 10-60 [facility] Serum or plasma albumin/glob ulin mass ratioOrdered By: Art Bianchi on 11-07-2022 Albumin/Globulin [Mass ratio] 1.7 {ratio} [facility] Serum or plasma alkaline justin sphatase measurement (enzymatic activity/volume)Ordered By: Art Bianchi on 11-07-2022 ALP [Catalytic activity/Vol] 60 U/L 32-92 [facility] Serum or plasma anion gap de terminationOrdered By: Art Bianchi on 11-07-2022 Anion gap [Moles/Vol] 12.2 mmol/L 6.0-15.0 [facility] Serum or plasma aspartate am inotransferase measurement (enzymatic activity/volume)Ordered By: Art Bianchi on 11-07-2022 AST [Catalytic activity/Vol] 25 U/L 10-42 [facility] Serum or plasma calcium tammy urement (mass/volume)Ordered By: Art Bianchi on 11-07-2022 Calcium [Mass/Vol] 9.6 mg/dL 8.2-10.2 [facility] Serum or plasma chloride judy surement (moles/volume)Ordered By: Art Bianchi on 11-07-2022 Chloride [Moles/Vol] 98 mmol/L 95-114 [facility] Serum or plasma creatinine m easurement with calculation of estimated glomerular filtrOrdered By: Art Bianchi on 11-07-2022 Creatinine and Glomerular filtration rate.predicted panel (S/P/Bld) 0.84 mg/dL 0.44-1.03 [facility] Serum or plasma glucose tammy urement (mass/volume)Ordered By: Art Bianchi on 11-07-2022 Glucose [Mass/Vol] 106 mg/dL 70-100 [facility] Serum or plasma potassium me asurement (moles/volume)Ordered By: Art Bianchi on 11-07-2022 Potassium [Moles/Vol] 3.2 mmol/L 3.5-5.1 [facility] Serum or plasma sodium measu rement (moles/volume)Ordered By: Art Bianchi on 11-07-2022 Sodium [Moles/Vol] 132 mmol/L 136-146 [facility] Serum or plasma total biliru bin measurement (mass/volume)Ordered By: Art Bianchi on 11-07-2022 Bilirubin [Mass/Vol] 0.8 mg/dL 0.3-1.2 [facility] Serum or plasma total carbon dioxide measurement (moles/volume)Ordered By: Art Bianchi on 11-07-2022 CO2 [Moles/Vol] 25.0 mmol/L 22.0-30.0 [facility] Serum or plasma urea nitroge n measurement (mass/volume)Ordered By: Art Bianchi on 11-07-2022 Urea nitrogen [Mass/Vol] 6 mg/dL 9-23 [facility] Specific gravity Auto test s trip (U) [Rel density]Ordered By: Art Bianchi on 11-07-2022 Specific gravity (U) [Rel density] 1.014 1.001-1.03 0 [facility] Squamous epithelial cells de tection in urine sediment by light microscopyOrdered By: Art Bianchi on 11-07-2022 Epithelial cells.squamous LM Ql (Urine sed) 5-9 [HPF] 0-2 [facility] Urine bacteria detection by automated methodOrdered By: Art Bianchi on 11-07-2022 Bacteria Auto Ql (U) None seen None Seen [facility] Urine clarity by refractomet ry automatedOrdered By: Art Bianchi on 11-07-2022 Clarity Refractometry automated (U) Clear Clear [facility] Urine glucose measurement by automated test strip (mass/volume)Ordered By: Art Bianchi on 11-07-2022 Glucose Auto test strip (U) [Mass/Vol] Normal mg/dL Normal [facility] Urine hemoglobin detection b y automated test stripOrdered By: Art Bianchi on 11-07-2022 Hemoglobin Auto test strip Ql (U) Negative Negative [facility] Urine leukocyte esterase det ection by automated test stripOrdered By: Art Bianchi on 11-07-2022 Leukocyte esterase Auto test strip Ql (U) Negative Negative [facility] Urobilinogen Auto test strip (U) [Mass/Vol]Ordered By: Art Bianchi on 11-07-2022 Urobilinogen (U) [Mass/Vol] Normal mg/dL Normal [facility] WBC Auto (Bld) [#/Vol]Ordere d By: Art Bianchi on 11-07-2022 WBC (Bld) [#/Vol] 10.3 10*3/uL 4.5-13.5 [facility] pH Auto test strip (U)Ordere d By: Art Bianchi on 11-07-2022 pH (U) 8.5 [pH] 5.0-9.0 [facility] Urine culture routineOrdered By: Colten Fry on 11-04-2022 Bacteria identified Cx Nom (U) 2 Days [facility] Albumin [Mass/volume] in Ser um or PlasmaOrdered By: Colten Fry on 11-02-2022 Albumin [Mass/Vol] 4.8 g/dL 3.2-5.5 [facility] Amphetamine Screen Ql (U)Ord ered By: Colten Fry on 11-02-2022 Amphetamines Ql (U) Negative Negative [facility] Automated erythrocytes count in urine sediment (number/area)Ordered By: Colten Fry on 11-02-2022 RBC Auto (Urine sed) [#/Area] 20-49 [HPF] 0-4 [facility] Automated leukocytes count i n urine sediment (number/area)Ordered By: Colten Fry on 11-02-2022 WBC Auto (Urine sed) [#/Area] 5-9 [HPF] 0-4 [facility] Barbiturates [Presence] in U rineOrdered By: Colten Fry on 11-02-2022 Barbiturates Ql (U) Negative Negative [facility] Basophils Auto (Bld) [#/Vol] Ordered By: Colten Fry on 11-02-2022 Basophils (Bld) [#/Vol] 0.1 10*3/uL 0.0-0.1 [facility] Basophils/100 WBC Auto (Bld) Ordered By: Colten Fry on 11-02-2022 Basophils/100 WBC (Bld) 0.5 % . [facility] Benzodiazepines [Presence] i n UrineOrdered By: Colten Fry on 11-02-2022 Benzodiazepines Ql (U) Negative Negative [facility] Bilirubin Test strip Ql (U)O rdered By: Colten Fry on 11-02-2022 Bilirubin Ql (U) Negative Negative [facility] Cannabinoids [Presence] in U rine by Screen methodOrdered By: Colten Fry on 11-02-2022 Cannabinoids Screen Ql (U) Positive Negative [facility] Color Auto (U)Ordered By: Vida Fry on 11-02-2022 Color (U) Yellow Yellow [facility] Eosinophils Auto (Bld) [#/Vo l]Ordered By: Colten Fry on 11-02-2022 Eosinophils (Bld) [#/Vol] 0.3 10*3/uL 0.0-0.7 [facility] Eosinophils/100 WBC Auto (Bl d)Ordered By: Colten Fry on 11-02-2022 Eosinophils/100 WBC (Bld) 2.1 % . [facility] Erythrocyte distribution wid th Auto (RBC) [Ratio]Ordered By: Colten Fry on 11-02-2022 Erythrocyte distribution width (RBC) [Ratio] 13.7 % 11.9-15.3 [facility] Estimated glomerular filtrat ion rate (GFR) non- AmericanOrdered By: Colten Fry on 11-02-2022 GFR/1.73 sq M.predicted among non-blacks MDRD (S/P/Bld) [Vol rate/Area] > 60 mL/Min [facility] Globulin Calc (S) [Mass/Vol] Ordered By: Cloten Fry on 11-02-2022 Globulin (S) [Mass/Vol] 3.1 g/dL [facility] HCG ( test) IA.rapi d Ql (U)Ordered By: Colten Fry on 11-02-2022 HCG ( test) Ql (U) Negative [facility] Hematocrit Auto (Bld) [Volum e fraction]Ordered By: Colten Fry on 11-02-2022 Hematocrit (Bld) [Volume fraction] 45.3 % 36.0-46.0 [facility] Hemoglobin [Mass/volume] in BloodOrdered By: Colten Fry on 11-02-2022 Hemoglobin (Bld) [Mass/Vol] 15.4 g/dL 12.0-16.0 [facility] Ketones Auto test strip (U) [Mass/Vol]Ordered By: Colten Fry on 11-02-2022 Ketones (U) [Mass/Vol] 3+ [facility] [#/volume] correc venkata for nucleated erythrocytes in Blood by Automated counOrdered By: Colten Fry on 11-02-2022 WBC corrected for nucl RBC Auto (Bld) [#/Vol] 11.7 10*3/uL 4.5-13.5 [facility] Lymphocytes Auto (Bld) [#/Vo l]Ordered By: Colten Fry on 11-02-2022 Lymphocytes (Bld) [#/Vol] 2.3 10*3/uL 1.20-4.8 [facility] Lymphocytes/100 WBC Auto (Bl d)Ordered By: Colten Fry on 11-02-2022 Lymphocytes/100 WBC (Bld) 19.6 % . [facility] MCH Auto (RBC) [Entitic mass ]Ordered By: Colten Fry on 11-02-2022 MCH (RBC) [Entitic mass] 28.4 pg 25.0-35.0 [facility] MCHC Auto (RBC) [Mass/Vol]Or dered By: Colten Fry on 11-02-2022 MCHC (RBC) [Mass/Vol] 34.0 g/dL 31.0-37.0 [facility] MCV Auto (RBC) [Entitic vol] Ordered By: Colten Fry on 11-02-2022 MCV (RBC) [Entitic vol] 83.3 fL 78-102 [facility] Monocytes Auto (Bld) [#/Vol] Ordered By: Colten Fry on 11-02-2022 Monocytes (Bld) [#/Vol] 1.0 10*3/uL 0.1-1.00 [facility] Monocytes/100 WBC Auto (Bld) Ordered By: Colten Fry on 11-02-2022 Monocytes/100 WBC (Bld) 8.5 % . [facility] Neutrophils Auto (Bld) [#/Vo l]Ordered By: Colten Fry on 11-02-2022 Neutrophils (Bld) [#/Vol] 8.1 10*3/uL 1.2-7.7 [facility] Neutrophils/100 WBC Auto (Bl d)Ordered By: Colten Fry on 11-02-2022 Neutrophils/100 WBC (Bld) 69.3 % . [facility] Nitrite Test strip Ql (U)Ord ered By: Colten Fry on 11-02-2022 Nitrite Ql (U) Negative Negative [facility] No Panel InformationOrdered By: Colten Fry on 11-02-2022 9-19 [LPF] 0-8 [facility] Negative Negative [facility] > 60 mL/Min [facility] 100.26 [facility] No Panel InformationOrdered By: Robert Bolanos on 11-02-2022 2.6 mg/dL 1.6-2.6 [facility] Nucleated erythrocytes [Pres ence] in Blood by Automated countOrdered By: Colten Fry on 11-02-2022 Nucleated RBC Auto Ql (Bld) 0.1 /100{WBC} 0-0.5 [facility] Phencyclidine Screen Ql (U)O rdered By: Colten Fry on 11-02-2022 Phencyclidine Ql (U) Negative Negative [facility] Platelet mean volume Auto (B ld) [Entitic vol]Ordered By: Colten Fry on 11-02-2022 Platelet mean volume (Bld) [Entitic vol] 7.9 fL 6.3-10.7 [facility] Platelets Auto (Bld) [#/Vol] Ordered By: Colten Fry on 11-02-2022 Platelets (Bld) [#/Vol] 292 10*3/uL 150-450 [facility] Protein Auto test strip (U) [Mass/Vol]Ordered By: Colten Fry on 11-02-2022 Protein (U) [Mass/Vol] 30 mg/dL Negative [facility] Protein [Mass/volume] in Ser um or PlasmaOrdered By: Colten Fry on 11-02-2022 Protein [Mass/Vol] 7.9 g/dL 6.1-7.9 [facility] RBC Auto (Bld) [#/Vol]Ordere d By: Colten Fry on 11-02-2022 RBC (Bld) [#/Vol] 5.43 10*6/uL 4.10-5.10 [facility] Serum or plasma alanine florez otransferase measurement without P-5'-P (enzymatic activiOrdered By: Colten Fry on 11-02-2022 ALT No additional P-5'-P [Catalytic activity/Vol] 20 U/L 10-60 [facility] Serum or plasma albumin/glob ulin mass ratioOrdered By: Colten Fry on 11-02-2022 Albumin/Globulin [Mass ratio] 1.5 {ratio} [facility] Serum or plasma alkaline justin sphatase measurement (enzymatic activity/volume)Ordered By: Colten Fry on 11-02-2022 ALP [Catalytic activity/Vol] 65 U/L 32-92 [facility] Serum or plasma anion gap de terminationOrdered By: Colten Fry on 11-02-2022 Anion gap [Moles/Vol] 14.6 mmol/L 6.0-15.0 [facility] Serum or plasma aspartate am inotransferase measurement (enzymatic activity/volume)Ordered By: Colten Fry on 11-02-2022 AST [Catalytic activity/Vol] 19 U/L 10-42 [facility] Serum or plasma calcium tammy urement (mass/volume)Ordered By: Colten Fry on 11-02-2022 Calcium [Mass/Vol] 9.6 mg/dL 8.2-10.2 [facility] Serum or plasma chloride judy surement (moles/volume)Ordered By: Colten Fry on 11-02-2022 Chloride [Moles/Vol] 95 mmol/L 95-114 [facility] Serum or plasma creatinine m easurement with calculation of estimated glomerular filtrOrdered By: Colten Fry on 11-02-2022 Creatinine and Glomerular filtration rate.predicted panel (S/P/Bld) 0.88 mg/dL 0.44-1.03 [facility] Serum or plasma glucose tammy urement (mass/volume)Ordered By: Colten Fry on 11-02-2022 Glucose [Mass/Vol] 95 mg/dL 70-100 [facility] Serum or plasma potassium me asurement (moles/volume)Ordered By: Colten Fry on 11-02-2022 Potassium [Moles/Vol] 2.9 mmol/L 3.5-5.1 [facility] Serum or plasma sodium measu rement (moles/volume)Ordered By: Colten Fry on 11-02-2022 Sodium [Moles/Vol] 134 mmol/L 136-146 [facility] Serum or plasma total biliru bin measurement (mass/volume)Ordered By: Colten Fry on 11-02-2022 Bilirubin [Mass/Vol] 1.8 mg/dL 0.3-1.2 [facility] Serum or plasma total carbon dioxide measurement (moles/volume)Ordered By: Colten Fry on 11-02-2022 CO2 [Moles/Vol] 27.3 mmol/L 22.0-30.0 [facility] Serum or plasma urea nitroge n measurement (mass/volume)Ordered By: Colten Fry on 11-02-2022 Urea nitrogen [Mass/Vol] 24 mg/dL 9- [facility] Specific gravity Auto test s trip (U) [Rel density]Ordered By: Colten Fry on 11-02-2022 Specific gravity (U) [Rel density] 1.025 1.001-1.03 0 [facility] Squamous epithelial cells de tection in urine sediment by light microscopyOrdered By: Colten Fry on 11-02-2022 Epithelial cells.squamous LM Ql (Urine sed) 10-19 [HPF] 0-2 [facility] Urine bacteria detection by automated methodOrdered By: Colten Fry on 11-02-2022 Bacteria Auto Ql (U) None seen None Seen [facility] Urine clarity by refractomet ry automatedOrdered By: Colten Fry on 11-02-2022 Clarity Refractometry automated (U) Cloudy Clear [facility] Urine cocaine detectionOrder ed By: Colten Fry on 11-02-2022 Cocaine Ql (U) Negative Negative [facility] Urine culture routineOrdered By: Colten Fry on 11-02-2022 Bacteria identified Cx Nom (U) 2 Days [facility] Urine culture routineOrdered By: Art Bianchi on 11-02-2022 Bacteria identified Cx Nom (U) 2 Days [facility] Urine glucose measurement by automated test strip (mass/volume)Ordered By: Colten Fry on 11-02-2022 Glucose Auto test strip (U) [Mass/Vol] Normal mg/dL Normal [facility] Urine hemoglobin detection b y automated test stripOrdered By: Colten Fry on 11-02-2022 Hemoglobin Auto test strip Ql (U) 3+ Negative [facility] Urine leukocyte esterase det ection by automated test stripOrdered By: Colten Fry on 11-02-2022 Leukocyte esterase Auto test strip Ql (U) 2+ Negative [facility] Urobilinogen Auto test strip (U) [Mass/Vol]Ordered By: Colten Fry on 11-02-2022 Urobilinogen (U) [Mass/Vol] Normal mg/dL Normal [facility] WBC Auto (Bld) [#/Vol]Ordere d By: Colten Fry on 11-02-2022 WBC (Bld) [#/Vol] 11.7 10*3/uL 4.5-13.5 [facility] pH Auto test strip (U)Ordere d By: Colten Fry on 11-02-2022 pH (U) 7.0 [pH] 5.0-9.0 [facility] Albumin [Mass/volume] in Ser um or PlasmaOrdered By: Art Bianchi on 10-31-2022 Albumin [Mass/Vol] 5.1 g/dL 3.2-5.5 [facility] Automated erythrocytes count in urine sediment (number/area)Ordered By: Art Bianchi on 10-31-2022 RBC Auto (Urine sed) [#/Area] Innumerable [HPF] 0-4 [facility] Automated leukocytes count i n urine sediment (number/area)Ordered By: Art Bianchi on 10-31-2022 WBC Auto (Urine sed) [#/Area] 10-19 [HPF] 0-4 [facility] Basophils Auto (Bld) [#/Vol] Ordered By: Art Bianchi on 10-31-2022 Basophils (Bld) [#/Vol] 0.0 10*3/uL 0.0-0.1 [facility] Basophils/100 WBC Auto (Bld) Ordered By: Art Bianchi on 10-31-2022 Basophils/100 WBC (Bld) 0.3 % . [facility] Bilirubin Test strip Ql (U)O rdered By: Art Bianchi on 10-31-2022 Bilirubin Ql (U) Negative Negative [facility] Color Auto (U)Ordered By: Adrian Bianchi on 10-31-2022 Color (U) Red Yellow [facility] Eosinophils Auto (Bld) [#/Vo l]Ordered By: Art Bianchi on 10-31-2022 Eosinophils (Bld) [#/Vol] 0.1 10*3/uL 0.0-0.7 [facility] Eosinophils/100 WBC Auto (Bl d)Ordered By: Art Bianchi on 10-31-2022 Eosinophils/100 WBC (Bld) 1.0 % . [facility] Erythrocyte distribution wid th Auto (RBC) [Ratio]Ordered By: Art Bianchi on 10-31-2022 Erythrocyte distribution width (RBC) [Ratio] 14.0 % 11.9-15.3 [facility] Estimated glomerular filtrat ion rate (GFR) non- AmericanOrdered By: Art Bianchi on 10-31-2022 GFR/1.73 sq M.predicted among non-blacks MDRD (S/P/Bld) [Vol rate/Area] > 60 mL/Min [facility] Globulin Calc (S) [Mass/Vol] Ordered By: Art Bianchi on 10-31-2022 Globulin (S) [Mass/Vol] 3.1 g/dL [facility] HCG ( test) IA.rapi d Ql (U)Ordered By: Art Bianchi on 10-31-2022 HCG ( test) Ql (U) Negative [facility] Hematocrit Auto (Bld) [Volum e fraction]Ordered By: Art Bianchi on 10-31-2022 Hematocrit (Bld) [Volume fraction] 45.0 % 36.0-46.0 [facility] Hemoglobin [Mass/volume] in BloodOrdered By: Art Bianchi on 10-31-2022 Hemoglobin (Bld) [Mass/Vol] 15.2 g/dL 12.0-16.0 [facility] Ketones Auto test strip (U) [Mass/Vol]Ordered By: Art Bianchi on 10-31-2022 Ketones (U) [Mass/Vol] 3+ [facility] Leuk[facility] [#/volume] correc venkata for nucleated erythrocytes in Blood by Automated counOrdered By: Art Bianchi on 10-31-2022 WBC corrected for nucl RBC Auto (Bld) [#/Vol] 14.0 10*3/uL 4.5-13.5 [facility] Lymphocytes Auto (Bld) [#/Vo l]Ordered By: Art Bianchi on 10-31-2022 Lymphocytes (Bld) [#/Vol] 2.2 10*3/uL 1.20-4.8 [facility] Lymphocytes/100 WBC Auto (Bl d)Ordered By: Art Bianchi on 10-31-2022 Lymphocytes/100 WBC (Bld) 15.5 % . [facility] MCH Auto (RBC) [Entitic mass ]Ordered By: Art Bianchi on 10-31-2022 MCH (RBC) [Entitic mass] 28.6 pg 25.0-35.0 [facility] MCHC Auto (RBC) [Mass/Vol]Or dered By: Art Bianchi on 10-31-2022 MCHC (RBC) [Mass/Vol] 33.7 g/dL 31.0-37.0 [facility] MCV Auto (RBC) [Entitic vol] Ordered By: Art Bianchi on 10-31-2022 MCV (RBC) [Entitic vol] 85.0 fL 78-102 [facility] Monocyte distribution width [Entitic volume] in Blood by AutomatedOrdered By: Art Bianchi on 10-31-2022 Monocyte distribution width Auto (Bld) [Entitic vol] 14.69 % 0.00-20.00 [facility] Monocytes Auto (Bld) [#/Vol] Ordered By: Art Bianchi on 10-31-2022 Monocytes (Bld) [#/Vol] 1.3 10*3/uL 0.1-1.00 [facility] Monocytes/100 WBC Auto (Bld) Ordered By: Art Bianchi on 10-31-2022 Monocytes/100 WBC (Bld) 9.1 % . [facility] Neutrophils Auto (Bld) [#/Vo l]Ordered By: Art Bianchi on 10-31-2022 Neutrophils (Bld) [#/Vol] 10.4 10*3/uL 1.2-7.7 [facility] Neutrophils/100 WBC Auto (Bl d)Ordered By: Art Bianchi on 10-31-2022 Neutrophils/100 WBC (Bld) 74.1 % . [facility] Nitrite Test strip Ql (U)Ord ered By: Art Bianchi on 10-31-2022 Nitrite Ql (U) Negative Negative [facility] No Panel InformationOrdered By: Art Bianchi on 10-31-2022 0-8 [LPF] 0-8 [facility] > 60 mL/Min [facility] 29.0 U/L 22-51 [facility] 102.97 [facility] Nucleated erythrocytes [Pres ence] in Blood by Automated countOrdered By: Art Bianchi on 10-31-2022 Nucleated RBC Auto Ql (Bld) 0.1 /100{WBC} 0-0.5 [facility] Platelet mean volume Auto (B ld) [Entitic vol]Ordered By: Art Bianchi on 10-31-2022 Platelet mean volume (Bld) [Entitic vol] 8.3 fL 6.3-10.7 [facility] Platelets Auto (Bld) [#/Vol] Ordered By: Art Bianchi on 10-31-2022 Platelets (Bld) [#/Vol] 337 10*3/uL 150-450 [facility] Protein Auto test strip (U) [Mass/Vol]Ordered By: Art Bianchi on 10-31-2022 Protein (U) [Mass/Vol] 100 mg/dL Negative [facility] Protein [Mass/volume] in Ser um or PlasmaOrdered By: Art Bianchi on 10-31-2022 Protein [Mass/Vol] 8.2 g/dL 6.1-7.9 [facility] RBC Auto (Bld) [#/Vol]Ordere d By: Art Bianchi on 10-31-2022 RBC (Bld) [#/Vol] 5.29 10*6/uL 4.10-5.10 [facility] Serum or plasma alanine florze otransferase measurement without P-5'-P (enzymatic activiOrdered By: Art Bianchi on 10-31-2022 ALT No additional P-5'-P [Catalytic activity/Vol] 25 U/L 10-60 [facility] Serum or plasma albumin/glob ulin mass ratioOrdered By: Art Bianchi on 10-31-2022 Albumin/Globulin [Mass ratio] 1.6 {ratio} [facility] Serum or plasma alkaline justin sphatase measurement (enzymatic activity/volume)Ordered By: Art Bianchi on 10-31-2022 ALP [Catalytic activity/Vol] 62 U/L 32-92 [facility] Serum or plasma anion gap de terminationOrdered By: Art Bianchi on 10-31-2022 Anion gap [Moles/Vol] 16.8 mmol/L 6.0-15.0 [facility] Serum or plasma aspartate am inotransferase measurement (enzymatic activity/volume)Ordered By: Art Bianchi on 10-31-2022 AST [Catalytic activity/Vol] 25 U/L 10-42 [facility] Serum or plasma calcium tammy urement (mass/volume)Ordered By: Art Bianchi on 10-31-2022 Calcium [Mass/Vol] 9.9 mg/dL 8.2-10.2 [facility] Serum or plasma chloride judy surement (moles/volume)Ordered By: Art Bianchi on 10-31-2022 Chloride [Moles/Vol] 96 mmol/L 95-114 [facility] Serum or plasma creatinine m easurement with calculation of estimated glomerular filtrOrdered By: Art Bianchi on 10-31-2022 Creatinine and Glomerular filtration rate.predicted panel (S/P/Bld) 0.89 mg/dL 0.44-1.03 [facility] Serum or plasma glucose tammy urement (mass/volume)Ordered By: Art Bianchi on 10-31-2022 Glucose [Mass/Vol] 120 mg/dL 70-100 [facility] Serum or plasma potassium me asurement (moles/volume)Ordered By: Art Bianchi on 10-31-2022 Potassium [Moles/Vol] 3.2 mmol/L 3.5-5.1 [facility] Serum or plasma sodium measu rement (moles/volume)Ordered By: Art Bianchi on 10-31-2022 Sodium [Moles/Vol] 132 mmol/L 136-146 [facility] Serum or plasma total biliru bin measurement (mass/volume)Ordered By: Art Bianchi on 10-31-2022 Bilirubin [Mass/Vol] 1.7 mg/dL 0.3-1.2 [facility] Serum or plasma total carbon dioxide measurement (moles/volume)Ordered By: Art Bianchi on 10-31-2022 CO2 [Moles/Vol] 22.4 mmol/L 22.0-30.0 [facility] Serum or plasma urea nitroge n measurement (mass/volume)Ordered By: Art Bianchi on 10-31-2022 Urea nitrogen [Mass/Vol] 28 mg/dL 9-23 [facility] Specific gravity Auto test s trip (U) [Rel density]Ordered By: Art Bianchi on 10-31-2022 Specific gravity (U) [Rel density] 1.030 1.001-1.03 0 [facility] [facility] epithelial cells de tection in urine sediment by light microscopyOrdered By: Art Bianchi on 10-31-2022 Epithelial cells.squamous LM Ql (Urine sed) 10-19 [HPF] 0-2 [facility] Urine bacteria detection by automated methodOrdered By: Art Bianchi on 10-31-2022 Bacteria Auto Ql (U) None seen None Seen [facility] Urine clarity by refractomet ry automatedOrdered By: Art Bianchi on 10-31-2022 Clarity Refractometry automated (U) Cloudy Clear [facility] Urine culture routineOrdered By: Art Bianchi on 10-31-2022 Bacteria identified Cx Nom (U) 2 Days [facility] Urine glucose measurement by automated test strip (mass/volume)Ordered By: Art Bianchi on 10-31-2022 Glucose Auto test strip (U) [Mass/Vol] Normal mg/dL Normal [facility] Urine hemoglobin detection b y automated test stripOrdered By: Art Bianchi on 10-31-2022 Hemoglobin Auto test strip Ql (U) 3+ Negative [facility] Urine leukocyte esterase det ection by automated test stripOrdered By: Art Bianchi on 10-31-2022 Leukocyte esterase Auto test strip Ql (U) 2+ Negative [facility] Urobilinogen Auto test strip (U) [Mass/Vol]Ordered By: Art Bianchi on 10-31-2022 Urobilinogen (U) [Mass/Vol] Normal mg/dL Normal [facility] WBC Auto (Bld) [#/Vol]Ordere d By: Art Bianchi on 10-31-2022 WBC (Bld) [#/Vol] 14.0 10*3/uL 4.5-13.5 [facility] pH Auto test strip (U)Ordere d By: Art Bianchi on 10-31-2022 pH (U) 6.5 [pH] 5.0-9.0 [facility] Basophils Auto (Bld) [#/Vol] Ordered By: Ravi Arguello on 10-29-2022 Basophils (Bld) [#/Vol] 0.0 10*3/uL 0.0-0.1 [facility] Basophils/100 WBC Auto (Bld) Ordered By: Ravi Arguello on 10-29-2022 Basophils/100 WBC (Bld) 0.3 % . [facility] Body fluid albumin measureme nt (mass/volume)Ordered By: Ravi Arguello on 10-29-2022 Albumin (Body fld) [Mass/Vol] 5.2 g/dL 3.2-5.5 [facility] Creatinine and Glomerular fi ltration rate.predicted panel (S/P/Bld)Ordered By: Ravi Arguello on 10-29-2022 Creatinine [Mass/Vol] 0.85 mg/dL 0.44-1.03 [facility] Direct bilirubin measurement Ordered By: Ravi Arguello on 10-29-2022 Bilirubin.direct [Mass/Vol] 0.1 mg/dL 0.0-0.4 [facility] Eosinophils Auto (Bld) [#/Vo l]Ordered By: Ravi Arguello on 10-29-2022 Eosinophils (Bld) [#/Vol] 0.0 10*3/uL 0.0-0.7 [facility] Eosinophils/100 WBC Auto (Bl d)Ordered By: Ravi Arguello on 10-29-2022 Eosinophils/100 WBC (Bld) 0.1 % . [facility] Erythrocyte distribution wid th Auto (RBC) [Ratio]Ordered By: Ravi Arguello on 10-29-2022 Erythrocyte distribution width (RBC) [Ratio] 14.4 % 11.9-15.3 [facility] Estimated glomerular filtrat ion rate (GFR) non- AmericanOrdered By: Ravi Arguello on 10-29-2022 GFR/1.73 sq M.predicted among non-blacks MDRD (S/P/Bld) [Vol rate/Area] > 60 mL/Min [facility] Globulin Calc (S) [Mass/Vol] Ordered By: Ravi Arguello on 10-29-2022 Globulin (S) [Mass/Vol] 3.7 g/dL [facility] Hematocrit Auto (Bld) [Volum e fraction]Ordered By: Ravi Arguello on 10-29-2022 Hematocrit (Bld) [Volume fraction] 42.9 % 36.0-46.0 [facility] Hemoglobin [Mass/volume] in BloodOrdered By: Ravi Arguello on 10-29-2022 Hemoglobin (Bld) [Mass/Vol] 14.3 g/dL 12.0-16.0 [facility] Laboratory - Chemistry and C hemistry - challengeOrdered By: Ravi Arguello on 10-29-2022 Lipase [Catalytic activity/Vol] 25.0 U/L 22-51 [facility] Leukocytes [#/volume] correc venkata for nucleated erythrocytes in Blood by Automated counOrdered By: Ravi Arguello on 10-29-2022 WBC corrected for nucl RBC Auto (Bld) [#/Vol] 13.7 10*3/uL 4.5-13.5 [facility] Lymphocytes Auto (Bld) [#/Vo l]Ordered By: Ravi Arguello on 10-29-2022 Lymphocytes (Bld) [#/Vol] 1.7 10*3/uL 1.20-4.8 [facility] Lymphocytes/100 WBC Auto (Bl d)Ordered By: Ravi Arguello on 10-29-2022 Lymphocytes/100 WBC (Bld) 12.4 % . [facility] MCH Auto (RBC) [Entitic mass ]Ordered By: Ravi Arguello on 10-29-2022 MCH (RBC) [Entitic mass] 28.4 pg 25.0-35.0 [facility] MCHC Auto (RBC) [Mass/Vol]Or dered By: Ravi Arguello on 10-29-2022 MCHC (RBC) [Mass/Vol] 33.3 g/dL 31.0-37.0 [facility] MCV Auto (RBC) [Entitic vol] Ordered By: Ravi Arguello on 10-29-2022 MCV (RBC) [Entitic vol] 85.1 fL 78-102 [facility] Monocyte distribution width [Entitic volume] in Blood by AutomatedOrdered By: Ravi Arguello on 10-29-2022 Monocyte distribution width Auto (Bld) [Entitic vol] 16.57 % 0.00-20.00 [facility] Monocytes Auto (Bld) [#/Vol] Ordered By: Ravi Arguello on 10-29-2022 Monocytes (Bld) [#/Vol] 0.9 10*3/uL 0.1-1.00 [facility] Monocytes/100 WBC Auto (Bld) Ordered By: Ravi Arguello on 10-29-2022 Monocytes/100 WBC (Bld) 6.8 % . [facility] Neutrophils Auto (Bld) [#/Vo l]Ordered By: Ravi Arguello on 10-29-2022 Neutrophils (Bld) [#/Vol] 11.0 10*3/uL 1.2-7.7 [facility] Neutrophils/100 WBC Auto (Bl d)Ordered By: Ravi Arguello on 10-29-2022 Neutrophils/100 WBC (Bld) 80.4 % . [facility] No Panel InformationOrdered By: Ravi Arguello on 10-29-2022 Estimated GFR () > 60 mL/Min [facility] Comment on above: GFR estimated refere nce range: According to KDOQI guidelines, <60 ml/min/1.73m2 is sufficient to diagnose a patient with chronic kidney disease. Pharmacy Creatinine Clearance (Chem 105.83 [facility] > 60 mL/Min [facility] 25.0 U/L 22-51 [facility] 105.83 [facility] Nucleated erythrocytes [Pres ence] in Blood by Automated countOrdered By: Ravi Arguello on 10-29-2022 Nucleated RBC Auto Ql (Bld) 0.0 /100{WBC} 0-0.5 [facility] Platelet mean volume Auto (B ld) [Entitic vol]Ordered By: Ravi Arguello on 10-29-2022 Platelet mean volume (Bld) [Entitic vol] 8.4 fL 6.3-10.7 [facility] Platelets Auto (Bld) [#/Vol] Ordered By: Ravi Arguello on 10-29-2022 Platelets (Bld) [#/Vol] 355 10*3/uL 150-450 [facility] Protein [Mass/volume] in Ser um or PlasmaOrdered By: Ravi Arguello on 10-29-2022 Protein [Mass/Vol] 8.9 g/dL 6.1-7.9 [facility] RBC Auto (Bld) [#/Vol]Ordere d By: Ravi Arguello on 10-29-2022 RBC (Bld) [#/Vol] 5.04 10*6/uL 4.10-5.10 [facility] Serum or plasma alanine florez otransferase measurement without P-5'-P (enzymatic activiOrdered By: Ravi Arguello on 10-29-2022 ALT No additional P-5'-P [Catalytic activity/Vol] 24 U/L 10-60 [facility] Serum or plasma albumin/glob ulin mass ratioOrdered By: Ravi Arguello on 10-29-2022 Albumin/Globulin [Mass ratio] 1.4 {ratio} [facility] Serum or plasma alkaline justin sphatase measurement (enzymatic activity/volume)Ordered By: Ravi Arguello on 10-29-2022 ALP [Catalytic activity/Vol] 68 U/L 32-92 [facility] Serum or plasma anion gap de terminationOrdered By: Ravi Arguello on 10-29-2022 Anion gap [Moles/Vol] 19.9 mmol/L 6.0-15.0 [facility] Serum or plasma aspartate am inotransferase measurement (enzymatic activity/volume)Ordered By: Ravi Arguello on 10-29-2022 AST [Catalytic activity/Vol] 20 U/L 10-42 [facility] Serum or plasma calcium tammy urement (mass/volume)Ordered By: Ravi Arguello on 10-29-2022 Calcium [Mass/Vol] 10.4 mg/dL 8.2-10.2 [facility] Serum or plasma chloride judy surement (moles/volume)Ordered By: Ravi Arguello on 10-29-2022 Chloride [Moles/Vol] 100 mmol/L 95-114 [facility] Serum or plasma creatinine m easurement with calculation of estimated glomerular filtrOrdered By: Ravi Arguello on 10-29-2022 Creatinine and Glomerular filtration rate.predicted panel (S/P/Bld) 0.85 mg/dL 0.44-1.03 [facility] Serum or plasma glucose tammy urement (mass/volume)Ordered By: Ravi Arguello on 10-29-2022 Glucose [Mass/Vol] 114 mg/dL 70-100 [facility] Comment on above: ADA recommended refe rence rangeRandom Glucose Reference Range is dependent on time and content of last meal. Glucose of more than 200 mg/dL in a nonstressed, ambulatory subject supports the diagnosis of Diabetes Mellitus. Serum or plasma non-glucuron idated bilirubin measurement (mass/volume)Ordered By: Ravi Arguello on 10-29-2022 Bilirubin.indirect [Mass/Vol] 1.1 mg/dL [facility] Serum or plasma potassium me asurement (moles/volume)Ordered By: Ravi Arguello on 10-29-2022 Potassium [Moles/Vol] 3.3 mmol/L 3.5-5.1 [facility] Serum or plasma sodium measu rement (moles/volume)Ordered By: Ravi Arguello on 10-29-2022 Sodium [Moles/Vol] 137 mmol/L 136-146 [facility] Serum or plasma total biliru bin measurement (mass/volume)Ordered By: Ravi Arguello on 10-29-2022 Bilirubin [Mass/Vol] 1.2 mg/dL 0.3-1.2 [facility] Serum or plasma total carbon dioxide measurement (moles/volume)Ordered By: Ravi Arguello on 10-29-2022 CO2 [Moles/Vol] 20.4 mmol/L 22.0-30.0 [facility] Serum or plasma urea nitroge n measurement (mass/volume)Ordered By: Ravi Arguello on 10-29-2022 Urea nitrogen [Mass/Vol] 21 mg/dL 9-23 [facility] WBC Auto (Bld) [#/Vol]Ordere d By: Ravi Arguello on 10-29-2022 WBC (Bld) [#/Vol] 13.7 10*3/uL 4.5-13.5 [facility] Basophils Auto (Bld) [#/Vol] Ordered By: Modesta Chand on 08-27-2022 Basophils (Bld) [#/Vol] 0.0 10*3/uL 0.0-0.1 [facility] Basophils/100 WBC Auto (Bld) Ordered By: Modesta Chand on 08-27-2022 Basophils/100 WBC (Bld) 0.3 % . [facility] Body fluid albumin measureme nt (mass/volume)Ordered By: Modesta Chand on 08-27-2022 Albumin (Body fld) [Mass/Vol] 4.7 g/dL 3.2-5.5 [facility] Creatinine and Glomerular fi ltration rate.predicted panel (S/P/Bld)Ordered By: Modesta Chand on 08-27-2022 Creatinine [Mass/Vol] 0.90 mg/dL 0.44-1.03 [facility] Eosinophils Auto (Bld) [#/Vo l]Ordered By: Modesta Chand on 08-27-2022 Eosinophils (Bld) [#/Vol] 0.3 10*3/uL 0.0-0.7 [facility] Eosinophils/100 WBC Auto (Bl d)Ordered By: Modesta Chand on 08-27-2022 Eosinophils/100 WBC (Bld) 2.2 % . [facility] Erythrocyte distribution wid th Auto (RBC) [Ratio]Ordered By: Modesta Chand on 08-27-2022 Erythrocyte distribution width (RBC) [Ratio] 14.0 % 11.9-15.3 [facility] Estimated glomerular filtrat ion rate (GFR) non- AmericanOrdered By: Modesta Chand on 08-27-2022 GFR/1.73 sq M.predicted among non-blacks MDRD (S/P/Bld) [Vol rate/Area] > 60 mL/Min [facility] Globulin Calc (S) [Mass/Vol] Ordered By: Modesta Chand on 08-27-2022 Globulin (S) [Mass/Vol] 2.5 g/dL [facility] Hematocrit Auto (Bld) [Volum e fraction]Ordered By: Modesta Chand on 08-27-2022 Hematocrit (Bld) [Volume fraction] 46.5 % 36.0-46.0 [facility] Hemoglobin [Mass/volume] in BloodOrdered By: Modesta Chand on 08-27-2022 Hemoglobin (Bld) [Mass/Vol] 15.6 g/dL 12.0-16.0 [facility] Laboratory - Chemistry and C hemistry - challengeOrdered By: Modesta Chand on 08-27-2022 Lipase [Catalytic activity/Vol] 27.0 U/L 22-51 [facility] Laboratory - Hematology and Cell countsOrdered By: Modesta Chand on 08-27-2022 Nucleated RBC/100 WBC (Bld) [Ratio] 0.1 % 0-0.5 [facility] Leukocytes [#/volume] in Blo od by Automated countOrdered By: Modesta Chand on 08-27-2022 WBC (Bld) [#/Vol] 13.4 10*3/uL 4.5-13.5 [facility] Lymphocytes Auto (Bld) [#/Vo l]Ordered By: Modesta Chand on 08-27-2022 Lymphocytes (Bld) [#/Vol] 3.1 10*3/uL 1.20-4.8 [facility] Lymphocytes/100 WBC Auto (Bl d)Ordered By: Modesta Chand on 08-27-2022 Lymphocytes/100 WBC (Bld) 22.9 % . [facility] MCH Auto (RBC) [Entitic mass ]Ordered By: Modesta Chand on 08-27-2022 MCH (RBC) [Entitic mass] 28.4 pg 25.0-35.0 [facility] MCHC Auto (RBC) [Mass/Vol]Or dered By: Modesta Chand on 08-27-2022 MCHC (RBC) [Mass/Vol] 33.5 g/dL 31.0-37.0 [facility] MCV Auto (RBC) [Entitic vol] Ordered By: Modesta Chand on 08-27-2022 MCV (RBC) [Entitic vol] 84.8 fL 78-102 [facility] Monocytes Auto (Bld) [#/Vol] Ordered By: Modesta Chand on 08-27-2022 Monocytes (Bld) [#/Vol] 1.2 10*3/uL 0.1-1.00 [facility] Monocytes/100 WBC Auto (Bld) Ordered By: Modesta Chand on 08-27-2022 Monocytes/100 WBC (Bld) 9.1 % . [facility] Neutrophils Auto (Bld) [#/Vo l]Ordered By: Modesta Chand on 08-27-2022 Neutrophils (Bld) [#/Vol] 8.8 10*3/uL 1.2-7.7 [facility] Neutrophils/100 WBC Auto (Bl d)Ordered By: Modesta Chand on 08-27-2022 Neutrophils/100 WBC (Bld) 65.5 % . [facility] No Panel InformationOrdered By: Modesta Chand on 08-27-2022 Estimated GFR () > 60 mL/Min [facility] Comment on above: GFR estimated refere nce range: According to KDOQI guidelines, <60 ml/min/1.73m2 is sufficient to diagnose a patient with chronic kidney disease. Pharmacy Creatinine Clearance (Chem N/A [facility] 13.4 10*3/uL 4.5-13.5 [facility] 0.1 % 0-0.5 [facility] > 60 mL/Min [facility] 27.0 U/L 22-51 [facility] N/A [facility] Platelet mean volume Auto (B ld) [Entitic vol]Ordered By: Modesta Chand on 08-27-2022 Platelet mean volume (Bld) [Entitic vol] 8.9 fL 6.3-10.7 [facility] Platelets Auto (Bld) [#/Vol] Ordered By: Modesta Chand on 08-27-2022 Platelets (Bld) [#/Vol] 373 10*3/uL 150-450 [facility] Protein [Mass/volume] in Ser um or PlasmaOrdered By: Modesta Chand on 08-27-2022 Protein [Mass/Vol] 7.2 g/dL 6.1-7.9 [facility] RBC Auto (Bld) [#/Vol]Ordere d By: Modesta Chand on 08-27-2022 RBC (Bld) [#/Vol] 5.49 10*6/uL 4.10-5.10 [facility] Serum or plasma alanine florez otransferase measurement without P-5'-P (enzymatic activiOrdered By: Modesta Chand on 08-27-2022 ALT No additional P-5'-P [Catalytic activity/Vol] 20 U/L 10-60 [facility] Serum or plasma albumin/glob ulin mass ratioOrdered By: Modesta Chand on 08-27-2022 Albumin/Globulin [Mass ratio] 1.9 {ratio} [facility] Serum or plasma alkaline justin sphatase measurement (enzymatic activity/volume)Ordered By: Modesta Chand on 08-27-2022 ALP [Catalytic activity/Vol] 63 U/L 32-92 [facility] Serum or plasma amylase tammy urement (enzymatic activity/volume)Ordered By: Modesta Chand on 08-27-2022 Amylase [Catalytic activity/Vol] 25 U/L 28-100 [facility] Serum or plasma anion gap de terminationOrdered By: Modesta Chand on 08-27-2022 Anion gap [Moles/Vol] 22.5 mmol/L 6.0-15.0 [facility] Serum or plasma aspartate am inotransferase measurement (enzymatic activity/volume)Ordered By: Modesta Chand on 08-27-2022 AST [Catalytic activity/Vol] 18 U/L 10-42 [facility] Serum or plasma calcium tammy urement (mass/volume)Ordered By: Modesta Chand on 08-27-2022 Calcium [Mass/Vol] 10.1 mg/dL 8.2-10.2 [facility] Serum or plasma chloride judy surement (moles/volume)Ordered By: Modesta Chand on 08-27-2022 Chloride [Moles/Vol] 89 mmol/L 95-114 [facility] Serum or plasma creatinine m easurement with calculation of estimated glomerular filtrOrdered By: Modesta Chand on 08-27-2022 Creatinine and Glomerular filtration rate.predicted panel (S/P/Bld) 0.90 mg/dL 0.44-1.03 [facility] Serum or plasma glucose tammy urement (mass/volume)Ordered By: Modesta Chand on 08-27-2022 Glucose [Mass/Vol] 76 mg/dL 70-100 [facility] Comment on above: ADA recommended refe rence [...] on 08-27-2022 Sodium [Moles/Vol] 131 mmol/L 136-146 [facility] Serum or plasma total biliru bin measurement (mass/volume)Ordered By: Modesta Chand on 08-27-2022 Bilirubin [Mass/Vol] 1.6 mg/dL 0.3-1.2 [facility] Comment on above: Samples from patient s who have taken Naproxen have shown spurious elevation in Total Bilirubin levels. A metabolite of Naproxen, O-desmethylnaproxen, has been shown to interfere with the Solomon method for measuring Total Bilirubin. Serum or plasma total carbon dioxide measurement (moles/volume)Ordered By: Modesta Chand on 08-27-2022 CO2 [Moles/Vol] 23.2 mmol/L 22.0-30.0 [facility] Serum or plasma urea nitroge n measurement (mass/volume)Ordered By: Modesta Chand on 08-27-2022 Urea nitrogen [Mass/Vol] 15 mg/dL 08-20 [facility] Basophils Auto (Bld) [#/Vol] Ordered By: Gregorio Carey on 08-22-2022 Basophils (Bld) [#/Vol] 0.0 10*3/uL 0.0-0.1 [facility] Basophils/100 WBC Auto (Bld) Ordered By: Gregorio Carey on 08-22-2022 Basophils/100 WBC (Bld) 0.3 % . [facility] Blood hemoglobin measurement (mass/volume)Ordered By: Gregorio Carey on 08-22-2022 Hemoglobin (Bld) [Mass/Vol] 13.1 g/dL 12.0-16.0 [facility] Blood leukocytes automated c ount (number/volume)Ordered By: Gregorio Carey on 08-22-2022 WBC (Bld) [#/Vol] 9.7 10*3/uL 4.5-13.5 [facility] Creatinine and Glomerular fi ltration rate.predicted panel (S/P/Bld)Ordered By: Gregorio Carey on 08-22-2022 Creatinine [Mass/Vol] 0.75 mg/dL 0.44-1.03 [facility] Eosinophils Auto (Bld) [#/Vo l]Ordered By: Gregorio Carey on 08-22-2022 Eosinophils (Bld) [#/Vol] 0.1 10*3/uL 0.0-0.7 [facility] Eosinophils/100 WBC Auto (Bl d)Ordered By: Gregorio Carey on 08-22-2022 Eosinophils/100 WBC (Bld) 1.0 % . [facility] Erythrocyte distribution wid th Auto (RBC) [Ratio]Ordered By: Gregorio Carey on 08-22-2022 Erythrocyte distribution width (RBC) [Ratio] 14.1 % 11.9-15.3 [facility] Estimated glomerular filtrat ion rate (GFR) non- AmericanOrdered By: Gregorio Carey on 08-22-2022 GFR/1.73 sq M.predicted among non-blacks MDRD (S/P/Bld) [Vol rate/Area] > 60 mL/Min [facility] Hematocrit Auto (Bld) [Volum e fraction]Ordered By: Gregorio Carey on 08-22-2022 Hematocrit (Bld) [Volume fraction] 39.6 % 36.0-46.0 [facility] Laboratory - Hematology and Cell countsOrdered By: Gregorio Carey on 08-22-2022 Nucleated RBC/100 WBC (Bld) [Ratio] 0.0 % 0-0.5 [facility] Lymphocytes Auto (Bld) [#/Vo l]Ordered By: Gregorio Carey on 08-22-2022 Lymphocytes (Bld) [#/Vol] 2.0 10*3/uL 1.20-4.8 [facility] Lymphocytes/100 WBC Auto (Bl d)Ordered By: Gregorio Carey on 08-22-2022 Lymphocytes/100 WBC (Bld) 20.5 % . [facility] MCH Auto (RBC) [Entitic mass ]Ordered By: Gregorio Carey on 08-22-2022 MCH (RBC) [Entitic mass] 28.0 pg 25.0-35.0 [facility] MCHC Auto (RBC) [Mass/Vol]Or dered By: Gregorio Carey on 08-22-2022 MCHC (RBC) [Mass/Vol] 33.2 g/dL 31.0-37.0 [facility] MCV Auto (RBC) [Entitic vol] Ordered By: Gregorio Carey on 08-22-2022 MCV (RBC) [Entitic vol] 84.5 fL 78-102 [facility] Monocytes Auto (Bld) [#/Vol] Ordered By: Gregorio Carey on 08-22-2022 Monocytes (Bld) [#/Vol] 0.8 10*3/uL 0.1-1.00 [facility] Monocytes/100 WBC Auto (Bld) Ordered By: Gregorio Carey on 08-22-2022 Monocytes/100 WBC (Bld) 8.0 % . [facility] Neutrophils Auto (Bld) [#/Vo l]Ordered By: Gregorio Carey on 08-22-2022 Neutrophils (Bld) [#/Vol] 6.8 10*3/uL 1.2-7.7 [facility] Neutrophils/100 WBC Auto (Bl d)Ordered By: Gregorio Carey on 08-22-2022 Neutrophils/100 WBC (Bld) 70.2 % . [facility] No Panel InformationOrdered By: Gregorio Carey on 08-22-2022 Estimated GFR () > 60 mL/Min [facility] Comment on above: GFR estimated refere nce range: According to KDOQI guidelines, <60 ml/min/1.73m2 is sufficient to diagnose a patient with chronic kidney disease. Pharmacy Creatinine Clearance (Chem 117.26 [facility] 9.7 10*3/uL 4.5-13.5 [facility] 0.0 % 0-0.5 [facility] > 60 mL/Min [facility] 117.26 [facility] Platelet mean volume Auto (B ld) [Entitic vol]Ordered By: Gregorio Carey on 08-22-2022 Platelet mean volume (Bld) [Entitic vol] 8.6 fL 6.3-10.7 [facility] Platelets Auto (Bld) [#/Vol] Ordered By: Gregorio Carey on 08-22-2022 Platelets (Bld) [#/Vol] 246 10*3/uL 150-450 [facility] RBC Auto (Bld) [#/Vol]Ordere d By: Gregorio Carey on 08-22-2022 RBC (Bld) [#/Vol] 4.69 10*6/uL 4.10-5.10 [facility] Serum nuclear antibody titer Ordered By: Gregorio Carey on 08-22-2022 Nuclear Ab (S) [Titer] Negative . [facility] Comment on above: Negative <1:80 Borde rline 1:80 Positive >1:80ICAP nomenclature: [id number] more information about Hep-2 cell patterns useANApatterns.org, the official website for theInternational Consensus on Antinuclear Antibody (EDMOND)Patterns (ICAP).Performed at: [address] [id number] Director: James Nelson PhD, Phone: [phone] Serum or plasma anion gap de terminationOrdered By: Gregorio Carey on 08-22-2022 Anion gap [Moles/Vol] 17.0 mmol/L 6.0-15.0 [facility] Serum or plasma beta choriog onadotropin measurement (units/volume)Ordered By: Gregorio Carey on 08-22-2022 HCG.beta subunit Qn m[IU]/mL [facility] Comment on above: Approximate Approxim ate [...] on 08-22-2022 Calcium [Mass/Vol] 9.4 mg/dL 8.2-10.2 [facility] Serum or plasma chloride judy surement (moles/volume)Ordered By: Gregorio Carey on 08-22-2022 Chloride [Moles/Vol] 99 mmol/L 95-114 [facility] Serum or plasma creatinine m easurement with calculation of estimated glomerular filtrOrdered By: Gregorio Carey on 08-22-2022 Creatinine and Glomerular filtration rate.predicted panel (S/P/Bld) 0.75 mg/dL 0.44-1.03 [facility] Serum or plasma glucose tammy urement (mass/volume)Ordered By: Gregorio Carey on 08-22-2022 Glucose [Mass/Vol] 90 mg/dL 70-100 [facility] Comment on above: ADA recommended refe rence [...] on 08-22-2022 Sodium [Moles/Vol] 134 mmol/L 136-146 [facility] Serum or plasma total carbon dioxide measurement (moles/volume)Ordered By: Gregorio Carey on 08-22-2022 CO2 [Moles/Vol] 21.8 mmol/L 22.0-30.0 [facility] Serum or plasma urea nitroge n measurement (mass/volume)Ordered By: Gregorio Carey on 08-22-2022 Urea nitrogen [Mass/Vol] 7 mg/dL 08-20 [facility] Urine culture routineOrdered By: Gregorio Carey on 08-22-2022 Bacteria identified Cx Nom (U) 2 Days [facility] Urine culture routineOrdered By: Gilson Castro on 08-22-2022 Bacteria identified Cx Nom (U) 2 Days [facility] Urine culture routineOrdered By: Colten Fry on 08-21-2022 Bacteria identified Cx Nom (U) 2 Days [facility] Amphetamine Screen Ql (U)Ord ered By: Gilson Castro on 08-20-2022 Amphetamines Ql (U) Negative Negative [facility] Automated erythrocytes count in urine sediment (number/area)Ordered By: Gilson Castro on 08-20-2022 RBC Auto (Urine sed) [#/Area] None seen [HPF] 0-4 [facility] Automated leukocytes count i n urine sediment (number/area)Ordered By: Gilson Castro on 08-20-2022 WBC Auto (Urine sed) [#/Area] 1-2 [HPF] 0-4 [facility] Barbiturates [Presence] in U rineOrdered By: Gilson Castro on 08-20-2022 Barbiturates Ql (U) Positive Negative [facility] Basophils Auto (Bld) [#/Vol] Ordered By: Gilson Castro on 08-20-2022 Basophils (Bld) [#/Vol] 0.0 10*3/uL 0.0-0.1 [facility] Basophils/100 WBC Auto (Bld) Ordered By: Gilson Castro on 08-20-2022 Basophils/100 WBC (Bld) 0.4 % . [facility] Benzodiazepines [Presence] i n UrineOrdered By: Gilson Castro on 08-20-2022 Benzodiazepines Ql (U) Negative Negative [facility] Bilirubin Test strip Ql (U)O rdered By: Gilson Castro on 08-20-2022 Bilirubin Ql (U) Negative Negative [facility] Blood anisocytosis detection Ordered By: Gilson Castro on 08-20-2022 Anisocytosis Ql (Bld) Slight Fir [facility] Blood hemoglobin measurement (mass/volume)Ordered By: Gilson Castro on 08-20-2022 Hemoglobin (Bld) [Mass/Vol] 12.1 g/dL 12.0-16.0 [facility] Blood leukocytes automated c ount (number/volume)Ordered By: Gilson Castro on 08-20-2022 WBC (Bld) [#/Vol] 10.9 10*3/uL 4.5-13.5 [facility] COVID-19 Positive/NegativeOr dered By: Ravi Arguello on 08-20-2022 SARS-CoV-2 (COVID-19) N gene JANAK+probe Ql (Resp) Negative Negative [facility] Comment on above: Testing for SARS-CoV -2 by RT-PCR This test was developed and its performance characteristics determined by [employer] ([employer]) and validated at the [facility]. This test has not been [...] characteristics determined by [employer] ([employer]) and validated at the [facility]. This test has not been [...] (COVID-19) Ag IA.rapid Ql (Resp) Negative Negative [facility] Comment on above: This is a duplicate [facility] SARS Antigen (JOSE A) result to be used for statistical tracking purpose only. Cannabinoids [Presence] in U rine by Screen methodOrdered By: Gilson Castro on 08-20-2022 Cannabinoids Screen Ql (U) Positive Negative [facility] Comment on above: These are [...] Castro on 08-20-2022 Color (U) Yellow Yellow [facility] Creatinine and Glomerular fi ltration rate.predicted panel (S/P/Bld)Ordered By: Gilson Castro on 08-20-2022 Creatinine [Mass/Vol] 0.65 mg/dL 0.44-1.03 [facility] Eosinophils Auto (Bld) [#/Vo l]Ordered By: Gilson Castro on 08-20-2022 Eosinophils (Bld) [#/Vol] 0.0 10*3/uL 0.0-0.7 [facility] Eosinophils/100 WBC Auto (Bl d)Ordered By: Gilson Castro on 08-20-2022 Eosinophils/100 WBC (Bld) 0.3 % . [facility] Erythrocyte distribution wid th Auto (RBC) [Ratio]Ordered By: Gilson Castro on 08-20-2022 Erythrocyte distribution width (RBC) [Ratio] 13.9 % 11.9-15.3 [facility] Estimated glomerular filtrat ion rate (GFR) non- AmericanOrdered By: Gilson Castro on 08-20-2022 GFR/1.73 sq M.predicted among non-blacks MDRD (S/P/Bld) [Vol rate/Area] > 60 mL/Min [facility] Hematocrit Auto (Bld) [Volum e fraction]Ordered By: Gilson Castro on 08-20-2022 Hematocrit (Bld) [Volume fraction] 36.8 % 36.0-46.0 [facility] Ketones Auto test strip (U) [Mass/Vol]Ordered By: Gilson Castro on 08-20-2022 Ketones (U) [Mass/Vol] 2+ Negative [facility] Laboratory - Chemistry and C hemistry - challengeOrdered By: Gilson Castro on 08-20-2022 Magnesium [Mass/Vol] 1.9 mg/dL 1.6-2.6 [facility] Laboratory - Drug toxicology Ordered By: Gilson Castro on 08-20-2022 Opiates Ql (U) Negative Negative [facility] Laboratory - Hematology and Cell countsOrdered By: Gilson Castro on 08-20-2022 Nucleated RBC/100 WBC (Bld) [Ratio] 0.0 % 0-0.5 [facility] Laboratory - UrinalysisOrder ed By: Gilson Castro on 08-20-2022 Hyaline casts LM Ql (Urine sed) None seen [LPF] 0-8 [facility] Lymphocytes Auto (Bld) [#/Vo l]Ordered By: Gilson Castro on 08-20-2022 Lymphocytes (Bld) [#/Vol] 1.3 10*3/uL 1.20-4.8 [facility] Lymphocytes/100 WBC Auto (Bl d)Ordered By: Gilson Castro on 08-20-2022 Lymphocytes/100 WBC (Bld) 11.5 % . [facility] MCH Auto (RBC) [Entitic mass ]Ordered By: Gilson Castro on 08-20-2022 MCH (RBC) [Entitic mass] 28.1 pg 25.0-35.0 [facility] MCHC Auto (RBC) [Mass/Vol]Or dered By: Gilson Castro on 08-20-2022 MCHC (RBC) [Mass/Vol] 32.9 g/dL 31.0-37.0 [facility] MCV Auto (RBC) [Entitic vol] Ordered By: Gilson Castro on 08-20-2022 MCV (RBC) [Entitic vol] 85.5 fL 78-102 [facility] Monocytes Auto (Bld) [#/Vol] Ordered By: Gilson Castro on 08-20-2022 Monocytes (Bld) [#/Vol] 0.4 10*3/uL 0.1-1.00 [facility] Monocytes/100 WBC Auto (Bld) Ordered By: Gilson Castro on 08-20-2022 Monocytes/100 WBC (Bld) 3.7 % . [facility] Neutrophils Auto (Bld) [#/Vo l]Ordered By: Gilson Castro on 08-20-2022 Neutrophils (Bld) [#/Vol] 9.2 10*3/uL 1.2-7.7 [facility] Neutrophils/100 WBC Auto (Bl d)Ordered By: Gilson Castro on 08-20-2022 Neutrophils/100 WBC (Bld) 84.1 % . [facility] Nitrite Test strip Ql (U)Ord ered By: Gilson Castro on 08-20-2022 Nitrite Ql (U) Negative Negative [facility] No Panel InformationOrdered By: Gilson Castro on 08-20-2022 None seen [LPF] 0-8 [facility] Negative Negative [facility] Estimated GFR () > 60 mL/Min [facility] Comment on above: GFR estimated refere nce range: According to KDOQI guidelines, <60 ml/min/1.73m2 is sufficient to diagnose a patient with chronic kidney disease. Pharmacy Creatinine Clearance (Chem 136.96 [facility] Platelet Estimate Normal Normal [facility] Platelet Morphology Comment Normal Normal [facility] Normal Normal [facility] 1.9 mg/dL 1.6-2.6 [facility] No Panel InformationOrdered By: Ravi Arguello on 08-20-2022 SARS Antigen (LFIA) [facility] Phencyclidine Screen Ql (U)O rdered By: Gilson Castro on 08-20-2022 Phencyclidine Ql (U) Negative Negative [facility] Platelet mean volume Auto (B ld) [Entitic vol]Ordered By: Gilson Castro on 08-20-2022 Platelet mean volume (Bld) [Entitic vol] 8.6 fL 6.3-10.7 [facility] Platelets Auto (Bld) [#/Vol] Ordered By: Gilson Castro on 08-20-2022 Platelets (Bld) [#/Vol] 145 10*3/uL 150-450 [facility] Comment on above: Delta: 314 on Protein Auto test strip (U) [Mass/Vol]Ordered By: Gilson Castro on 08-20-2022 Protein (U) [Mass/Vol] Negative Negative Fi [facility] RBC Auto (Bld) [#/Vol]Ordere d By: Gilson Castro on 08-20-2022 RBC (Bld) [#/Vol] 4.31 10*6/uL 4.10-5.10 [facility] RBC morphologyOrdered By: Pierce Castro on 08-20-2022 RBC morphology finding Nom (Bld) N/A [facility] Serum or plasma anion gap de terminationOrdered By: Gilson Castro on 08-20-2022 Anion gap [Moles/Vol] 15.2 mmol/L 6.0-15.0 [facility] Serum or plasma calcium tammy urement (mass/volume)Ordered By: Gilson Castro on 08-20-2022 Calcium [Mass/Vol] 8.6 mg/dL 8.2-10.2 [facility] Serum or plasma chloride judy surement (moles/volume)Ordered By: Gilson Castro on 08-20-2022 Chloride [Moles/Vol] 101 mmol/L 95-114 [facility] Serum or plasma glucose tammy urement (mass/volume)Ordered By: Gilson Castro on 08-20-2022 Glucose [Mass/Vol] 96 mg/dL 70-100 [facility] Comment on above: ADA recommended refe rence [...] on 08-20-2022 Sodium [Moles/Vol] 135 mmol/L 136-146 [facility] Serum or plasma total carbon dioxide measurement (moles/volume)Ordered By: Gilson Castro on 08-20-2022 CO2 [Moles/Vol] 21.9 mmol/L 22.0-30.0 [facility] Serum or plasma urea nitroge n measurement (mass/volume)Ordered By: Gilson Castro on 08-20-2022 Urea nitrogen [Mass/Vol] 11 mg/dL 08-20 [facility] Specific gravity Auto test s trip (U) [Rel density]Ordered By: Gilson Castro on 08-20-2022 Specific gravity (U) [Rel density] 1.008 1.001-1.03 0 [facility] Squamous epithelial cells de tection in urine sediment by light microscopyOrdered By: Gilson Castro on 08-20-2022 Epithelial cells.squamous LM Ql (Urine sed) 1-2 [HPF] 0-2 [facility] Urine bacteria detection by automated methodOrdered By: Gilson Castro on 08-20-2022 Bacteria Auto Ql (U) None seen None Seen [facility] Urine clarity by refractomet ry automatedOrdered By: Gilson Castro on 08-20-2022 Clarity Refractometry automated (U) Clear Clear [facility] Urine cocaine detectionOrder ed By: Gilson Castro on 08-20-2022 Cocaine Ql (U) Negative Negative [facility] Urine glucose measurement by automated test strip (mass/volume)Ordered By: Gilson Castro on 08-20-2022 Glucose Auto test strip (U) [Mass/Vol] Normal mg/dL Normal [facility] Urine hemoglobin detection b y automated test stripOrdered By: Gilson Castro on 08-20-2022 Hemoglobin Auto test strip Ql (U) Negative Negative [facility] Urine leukocyte esterase det ection by automated test stripOrdered By: Gilson Castro on 08-20-2022 Leukocyte esterase Auto test strip Ql (U) 1+ Negative [facility] Urobilinogen Auto test strip (U) [Mass/Vol]Ordered By: Gilson Castro on 08-20-2022 Urobilinogen (U) [Mass/Vol] Normal mg/dL Normal [facility] pH Auto test strip (U)Ordere d By: Gilson Castro on 08-20-2022 pH (U) 7.0 [pH] 5.0-9.0 [facility] Automated erythrocytes count in urine sediment (number/area)Ordered By: Gilson Castro on 08-19-2022 RBC Auto (Urine sed) [#/Area] 3-4 [HPF] 0-4 [facility] Automated erythrocytes count in urine sediment (number/area)Ordered By: Colten Fry on 08-19-2022 RBC Auto (Urine sed) [#/Area] None seen [HPF] 0-4 [facility] Automated leukocytes count i n urine sediment (number/area)Ordered By: Gilson Castro on 08-19-2022 WBC Auto (Urine sed) [#/Area] 20-49 [HPF] 0-4 [facility] Automated leukocytes count i n urine sediment (number/area)Ordered By: Colten Fry on 08-19-2022 WBC Auto (Urine sed) [#/Area] 5-9 [HPF] 0-4 [facility] Automated urine hyaline cast s count (number/volume)Ordered By: Gilson Castro on 08-19-2022 Hyaline casts Auto (U) [#/Vol] None seen [LPF] 0-1 [facility] Basophils Auto (Bld) [#/Vol] Ordered By: Gilson Castro on 08-19-2022 Basophils (Bld) [#/Vol] 0.0 10*3/uL 0.0-0.1 [facility] Basophils Auto (Bld) [#/Vol] Ordered By: Colten Fry on 08-19-2022 Basophils (Bld) [#/Vol] 0.0 10*3/uL 0.0-0.1 [facility] Basophils/100 WBC Auto (Bld) Ordered By: Gilson Castro on 08-19-2022 Basophils/100 WBC (Bld) 0.2 % . [facility] Basophils/100 WBC Auto (Bld) Ordered By: Colten Fry on 08-19-2022 Basophils/100 WBC (Bld) 0.4 % . [facility] Bilirubin Test strip Ql (U)O rdered By: Gilson Castro on 08-19-2022 Bilirubin Ql (U) Negative Negative [facility] Bilirubin Test strip Ql (U)O rdered By: Colten Fry on 08-19-2022 Bilirubin Ql (U) Negative Negative [facility] Blood hemoglobin measurement (mass/volume)Ordered By: Gilson Castro on 08-19-2022 Hemoglobin (Bld) [Mass/Vol] 13.2 g/dL 12.0-16.0 [facility] Blood hemoglobin measurement (mass/volume)Ordered By: Colten Fry on 08-19-2022 Hemoglobin (Bld) [Mass/Vol] 12.8 g/dL 12.0-16.0 [facility] Blood leukocytes automated c ount (number/volume)Ordered By: Gilson Castro on 08-19-2022 WBC (Bld) [#/Vol] 15.5 10*3/uL 4.5-13.5 [facility] Blood leukocytes automated c ount (number/volume)Ordered By: Colten Fry on 08-19-2022 WBC (Bld) [#/Vol] 13.5 10*3/uL 4.5-13.5 [facility] Body fluid albumin measureme nt (mass/volume)Ordered By: Gilson Castro on 08-19-2022 Albumin (Body fld) [Mass/Vol] 4.0 g/dL 3.2-5.5 [facility] Body fluid albumin measureme nt (mass/volume)Ordered By: Colten Fry on 08-19-2022 Albumin (Body fld) [Mass/Vol] 4.5 g/dL 3.2-5.5 [facility] COVID-19 SOFIAOrdered By: Pierce Castro on 08-19-2022 SARS-CoV+SARS-CoV-2 (COVID-19) Ag IA.rapid Ql (Resp) Negative Negative [facility] Comment on above: This is a duplicate [employer] SARS Antigen (JOSE A) result to be used for statistical tracking purpose only. Casts typing in urine sedime nt by light microscopyOrdered By: Gilson Castro on 08-19-2022 Casts LM Nom (Urine sed) None seen [LPF] None Seen [facility] Casts typing in urine sedime nt by light microscopyOrdered By: Colten Fry on 08-19-2022 Casts LM Nom (Urine sed) N/A [facility] Color Auto (U)Ordered By: Pierce Castro on 08-19-2022 Color (U) Yellow Yellow [facility] Color Auto (U)Ordered By: Vida Fry on 08-19-2022 Color (U) Yellow Yellow [facility] Creatinine and Glomerular fi ltration rate.predicted panel (S/P/Bld)Ordered By: Gilson Castro on 08-19-2022 Creatinine [Mass/Vol] 0.73 mg/dL 0.44-1.03 [facility] Creatinine and Glomerular fi ltration rate.predicted panel (S/P/Bld)Ordered By: Colten Fry on 08-19-2022 Creatinine [Mass/Vol] 0.82 mg/dL 0.44-1.03 [facility] Eosinophils Auto (Bld) [#/Vo l]Ordered By: Gilson Castro on 08-19-2022 Eosinophils (Bld) [#/Vol] 0.0 10*3/uL 0.0-0.7 [facility] Eosinophils Auto (Bld) [#/Vo l]Ordered By: Colten Fry on 08-19-2022 Eosinophils (Bld) [#/Vol] 0.0 10*3/uL 0.0-0.7 [facility] Eosinophils/100 WBC Auto (Bl d)Ordered By: Gilson Castro on 08-19-2022 Eosinophils/100 WBC (Bld) 0.2 % . [facility] Eosinophils/100 WBC Auto (Bl d)Ordered By: Colten Fry on 08-19-2022 Eosinophils/100 WBC (Bld) 0.0 % . [facility] Erythrocyte distribution wid th Auto (RBC) [Ratio]Ordered By: Gilson Castro on 08-19-2022 Erythrocyte distribution width (RBC) [Ratio] 14.4 % 11.9-15.3 [facility] Erythrocyte distribution wid th Auto (RBC) [Ratio]Ordered By: Colten Fry on 08-19-2022 Erythrocyte distribution width (RBC) [Ratio] 14.3 % 11.9-15.3 [facility] Estimated glomerular filtrat ion rate (GFR) non- AmericanOrdered By: Gilson Castro on 08-19-2022 GFR/1.73 sq M.predicted among non-blacks MDRD (S/P/Bld) [Vol rate/Area] > 60 mL/Min [facility] Estimated glomerular filtrat ion rate (GFR) non- AmericanOrdered By: Colten Fry on 08-19-2022 GFR/1.73 sq M.predicted among non-blacks MDRD (S/P/Bld) [Vol rate/Area] > 60 mL/Min [facility] Globulin Calc (S) [Mass/Vol] Ordered By: Gilson Castro on 08-19-2022 Globulin (S) [Mass/Vol] 2.7 g/dL [facility] Globulin Calc (S) [Mass/Vol] Ordered By: Colten Fry on 08-19-2022 Globulin (S) [Mass/Vol] 3.0 g/dL [facility] HCG ( test) IA.rapi d Ql (U)Ordered By: Gilson Castro on 08-19-2022 HCG ( test) Ql (U) Negative [facility] HCG ( test) IA.rapi d Ql (U)Ordered By: Colten Fry on 08-19-2022 HCG ( test) Ql (U) Negative [facility] Hematocrit Auto (Bld) [Volum e fraction]Ordered By: Gilson Castro on 08-19-2022 Hematocrit (Bld) [Volume fraction] 40.6 % 36.0-46.0 [facility] Hematocrit Auto (Bld) [Volum e fraction]Ordered By: Colten Fry on 08-19-2022 Hematocrit (Bld) [Volume fraction] 39.5 % 36.0-46.0 [facility] Ketones Auto test strip (U) [Mass/Vol]Ordered By: Gilson Castro on 08-19-2022 Ketones (U) [Mass/Vol] 4+ Negative [facility] Ketones Auto test strip (U) [Mass/Vol]Ordered By: Colten Fry on 08-19-2022 Ketones (U) [Mass/Vol] 3+ Negative [facility] Laboratory - Chemistry and C hemistry - challengeOrdered By: Gilson Castro on 08-19-2022 Lipase [Catalytic activity/Vol] 24.0 U/L 51 [facility] Magnesium [Mass/Vol] 2.0 mg/dL 1.6-2.6 [facility] Laboratory - Hematology and Cell countsOrdered By: Gilson Castro on 08-19-2022 Nucleated RBC/100 WBC (Bld) [Ratio] 0.1 % 0-0.5 [facility] Laboratory - Hematology and Cell countsOrdered By: Colten Fry on 08-19-2022 Nucleated RBC/100 WBC (Bld) [Ratio] 0.0 % 0-0.5 [facility] Laboratory - UrinalysisOrder ed By: Colten Fry on 08-19-2022 Hyaline casts LM Ql (Urine sed) None seen [LPF] 0-8 [facility] Lymphocytes Auto (Bld) [#/Vo l]Ordered By: Gilson Castro on 08-19-2022 Lymphocytes (Bld) [#/Vol] 2.3 10*3/uL 1.20-4.8 [facility] Lymphocytes Auto (Bld) [#/Vo l]Ordered By: Colten rFy on 08-19-2022 Lymphocytes (Bld) [#/Vol] 1.0 10*3/uL 1.20-4.8 [facility] Lymphocytes/100 WBC Auto (Bl d)Ordered By: Gilson Castro on 08-19-2022 Lymphocytes/100 WBC (Bld) 14.6 % . [facility] Lymphocytes/100 WBC Auto (Bl d)Ordered By: Colten Fry on 08-19-2022 Lymphocytes/100 WBC (Bld) 7.3 % . [facility] MCH Auto (RBC) [Entitic mass ]Ordered By: Gilson Castro on 08-19-2022 MCH (RBC) [Entitic mass] 27.9 pg 25.0-35.0 [facility] MCH Auto (RBC) [Entitic mass ]Ordered By: Colten Fry on 08-19-2022 MCH (RBC) [Entitic mass] 27.7 pg 25.0-35.0 [facility] MCHC Auto (RBC) [Mass/Vol]Or dered By: Gilson Castro on 08-19-2022 MCHC (RBC) [Mass/Vol] 32.6 g/dL 31.0-37.0 [facility] MCHC Auto (RBC) [Mass/Vol]Or dered By: Colten Fry on 08-19-2022 MCHC (RBC) [Mass/Vol] 32.3 g/dL 31.0-37.0 [facility] MCV Auto (RBC) [Entitic vol] Ordered By: Gilson Castro on 08-19-2022 MCV (RBC) [Entitic vol] 85.6 fL 78-102 [facility] MCV Auto (RBC) [Entitic vol] Ordered By: Colten Fry on 08-19-2022 MCV (RBC) [Entitic vol] 85.7 fL 78-102 [facility] Monocytes Auto (Bld) [#/Vol] Ordered By: Gilson Castro on 08-19-2022 Monocytes (Bld) [#/Vol] 1.1 10*3/uL 0.1-1.00 [facility] Monocytes Auto (Bld) [#/Vol] Ordered By: Colten Fry on 08-19-2022 Monocytes (Bld) [#/Vol] 0.3 10*3/uL 0.1-1.00 [facility] Monocytes/100 WBC Auto (Bld) Ordered By: Gilson Castro on 08-19-2022 Monocytes/100 WBC (Bld) 7.3 % . [facility] Monocytes/100 WBC Auto (Bld) Ordered By: Colten Fry on 08-19-2022 Monocytes/100 WBC (Bld) 2.1 % . [facility] Neutrophils Auto (Bld) [#/Vo l]Ordered By: Gilson Castro on 08-19-2022 Neutrophils (Bld) [#/Vol] 12.1 10*3/uL 1.2-7.7 [facility] Neutrophils Auto (Bld) [#/Vo l]Ordered By: Colten Fry on 08-19-2022 Neutrophils (Bld) [#/Vol] 12.2 10*3/uL 1.2-7.7 [facility] Neutrophils/100 WBC Auto (Bl d)Ordered By: Gilson Castro on 08-19-2022 Neutrophils/100 WBC (Bld) 77.7 % . [facility] Neutrophils/100 WBC Auto (Bl d)Ordered By: Colten Fry on 08-19-2022 Neutrophils/100 WBC (Bld) 90.2 % . [facility] Nitrite Test strip Ql (U)Ord ered By: Gilson Castro on 08-19-2022 Nitrite Ql (U) Negative Negative [facility] Nitrite Test strip Ql (U)Ord ered By: Colten Fry on 08-19-2022 Nitrite Ql (U) Negative Negative [facility] No Panel InformationOrdered By: Gilson Castro on 08-19-2022 Estimated GFR () > 60 mL/Min [facility] Comment on above: GFR estimated refere nce range: According to KDOQI guidelines, <60 ml/min/1.73m2 is sufficient to diagnose a patient with chronic kidney disease. Pharmacy Creatinine Clearance (Chem 121.95 [facility] > 60 mL/Min [facility] 2.0 mg/dL 1.6-2.6 [facility] 24.0 U/L [facility] 121.95 [facility] 15.5 10*3/uL 4.5-13.5 [facility] 0.1 % 0-0.5 [facility] SARS Antigen (LFIA) [facility] No Panel InformationOrdered By: Colten Fry on 08-19-2022 None seen [LPF] 0-8 [facility] Estimated GFR () > 60 mL/Min [facility] Comment on above: GFR estimated refere nce range: According to KDOQI guidelines, <60 ml/min/1.73m2 is sufficient to diagnose a patient with chronic kidney disease. Pharmacy Creatinine Clearance (Chem 106.97 [facility] 13.5 10*3/uL 4.5-13.5 [facility] 0.0 % 0-0.5 [facility] > 60 mL/Min [facility] 106.97 [facility] Platelet mean volume Auto (B ld) [Entitic vol]Ordered By: Gilson Castro on 08-19-2022 Platelet mean volume (Bld) [Entitic vol] 8.8 fL 6.3-10.7 [facility] Platelet mean volume Auto (B ld) [Entitic vol]Ordered By: Colten Fry on 08-19-2022 Platelet mean volume (Bld) [Entitic vol] 8.7 fL 6.3-10.7 [facility] Platelets Auto (Bld) [#/Vol] Ordered By: Gilson Castro on 08-19-2022 Platelets (Bld) [#/Vol] 314 10*3/uL 150-450 [facility] Platelets Auto (Bld) [#/Vol] Ordered By: Colten Fry on 08-19-2022 Platelets (Bld) [#/Vol] 258 10*3/uL 150-450 [facility] Protein Auto test strip (U) [Mass/Vol]Ordered By: Gilson Castro on 08-19-2022 Protein (U) [Mass/Vol] 30 mg/dL Negative Fi [facility] Protein Auto test strip (U) [Mass/Vol]Ordered By: Colten Fry on 08-19-2022 Protein (U) [Mass/Vol] Trace mg/dL Negative [facility] Protein [Mass/volume] in Ser um or PlasmaOrdered By: Gilson Castro on 08-19-2022 Protein [Mass/Vol] 6.7 g/dL 6.1-7.9 [facility] Protein [Mass/volume] in Ser um or PlasmaOrdered By: Colten Fry on 08-19-2022 Protein [Mass/Vol] 7.5 g/dL 6.1-7.9 [facility] RBC Auto (Bld) [#/Vol]Ordere d By: Gilson Castro on 08-19-2022 RBC (Bld) [#/Vol] 4.74 10*6/uL 4.10-5.10 [facility] RBC Auto (Bld) [#/Vol]Ordere d By: Colten Fry on 08-19-2022 RBC (Bld) [#/Vol] 4.60 10*6/uL 4.10-5.10 [facility] Serum or plasma alanine florez otransferase measurement without P-5'-P (enzymatic activiOrdered By: Gilson Castro on 08-19-2022 ALT No additional P-5'-P [Catalytic activity/Vol] 17 U/L 10-60 [facility] Serum or plasma alanine florez otransferase measurement without P-5'-P (enzymatic activiOrdered By: Colten Fry on 08-19-2022 ALT No additional P-5'-P [Catalytic activity/Vol] 16 U/L 10-60 [facility] Serum or plasma albumin/glob ulin mass ratioOrdered By: Gilson Castro on 08-19-2022 Albumin/Globulin [Mass ratio] 1.5 {ratio} [facility] Serum or plasma albumin/glob ulin mass ratioOrdered By: Colten Fry on 08-19-2022 Albumin/Globulin [Mass ratio] 1.5 {ratio} [facility] Serum or plasma alkaline justin sphatase measurement (enzymatic activity/volume)Ordered By: Gilson Castro on 08-19-2022 ALP [Catalytic activity/Vol] 51 U/L [facility] Serum or plasma alkaline justin sphatase measurement (enzymatic activity/volume)Ordered By: Colten Fry on 08-19-2022 ALP [Catalytic activity/Vol] 59 U/L [facility] Serum or plasma anion gap de terminationOrdered By: Gilson Castro on 08-19-2022 Anion gap [Moles/Vol] 13.8 mmol/L 6.0-15.0 [facility] Serum or plasma anion gap de terminationOrdered By: Colten Fry on 08-19-2022 Anion gap [Moles/Vol] 19.5 mmol/L 6.0-15.0 [facility] Serum or plasma aspartate am inotransferase measurement (enzymatic activity/volume)Ordered By: Gilson Castro on 08-19-2022 AST [Catalytic activity/Vol] 17 U/L [facility] Serum or plasma aspartate am inotransferase measurement (enzymatic activity/volume)Ordered By: Colten Fry on 08-19-2022 AST [Catalytic activity/Vol] 20 U/L [facility] Serum or plasma calcium tammy urement (mass/volume)Ordered By: Gilson Castro on 08-19-2022 Calcium [Mass/Vol] 9.1 mg/dL 8.2-10.2 [facility] Serum or plasma calcium tammy urement (mass/volume)Ordered By: Colten Fry on 08-19-2022 Calcium [Mass/Vol] 9.8 mg/dL 8.2-10.2 [facility] Serum or plasma chloride judy surement (moles/volume)Ordered By: Gilson Castro on 08-19-2022 Chloride [Moles/Vol] 104 mmol/L 95-114 [facility] Serum or plasma chloride judy surement (moles/volume)Ordered By: Colten Fry on 08-19-2022 Chloride [Moles/Vol] 107 mmol/L 95-114 [facility] Serum or plasma creatinine m easurement with calculation of estimated glomerular filtrOrdered By: Gilson Castro on 08-19-2022 Creatinine and Glomerular filtration rate.predicted panel (S/P/Bld) 0.73 mg/dL 0.44-1.03 [facility] Serum or plasma creatinine m easurement with calculation of estimated glomerular filtrOrdered By: Colten Fry on 08-19-2022 Creatinine and Glomerular filtration rate.predicted panel (S/P/Bld) 0.82 mg/dL 0.44-1.03 [facility] Serum or plasma glucose tammy urement (mass/volume)Ordered By: Gilson Castro on 08-19-2022 Glucose [Mass/Vol] 108 mg/dL 70-100 [facility] Comment on above: ADA recommended refe rence [...] on 08-19-2022 Glucose [Mass/Vol] 131 mg/dL 70-100 [facility] Comment on above: ADA recommended refe rence [...] on 08-19-2022 Sodium [Moles/Vol] 138 mmol/L 136-146 [facility] Serum or plasma sodium measu rement (moles/volume)Ordered By: Colten Fry on 08-19-2022 Sodium [Moles/Vol] 142 mmol/L 136-146 [facility] Serum or plasma total biliru bin measurement (mass/volume)Ordered By: Gilson Castro on 08-19-2022 Bilirubin [Mass/Vol] 0.5 mg/dL 0.3-1.2 [facility] Serum or plasma total biliru bin measurement (mass/volume)Ordered By: Colten Fry on 08-19-2022 Bilirubin [Mass/Vol] 0.6 mg/dL 0.3-1.2 [facility] Serum or plasma total carbon dioxide measurement (moles/volume)Ordered By: Gilson Castro on 08-19-2022 CO2 [Moles/Vol] 23.3 mmol/L 22.0-30.0 [facility] Serum or plasma total carbon dioxide measurement (moles/volume)Ordered By: Colten Fry on 08-19-2022 CO2 [Moles/Vol] 19.4 mmol/L 22.0-30.0 [facility] Serum or plasma urea nitroge n measurement (mass/volume)Ordered By: Gilson Castro on 08-19-2022 Urea nitrogen [Mass/Vol] 15 mg/dL 08-20 [facility] Serum or plasma urea nitroge n measurement (mass/volume)Ordered By: Colten Fry on 08-19-2022 Urea nitrogen [Mass/Vol] 14 mg/dL 08-20 [facility] Specific gravity Auto test s trip (U) [Rel density]Ordered By: Gilson Castro on 08-19-2022 Specific gravity (U) [Rel density] 1.026 1.001-1.03 0 [facility] Specific gravity Auto test s trip (U) [Rel density]Ordered By: Colten Fry on 08-19-2022 Specific gravity (U) [Rel density] 1.023 1.001-1.03 0 [facility] Squamous epithelial cells de tection in urine sediment by light microscopyOrdered By: Gilson Castro on 08-19-2022 Epithelial cells.squamous LM Ql (Urine sed) 20-30 [HPF] 0-2 [facility] Squamous epithelial cells de tection in urine sediment by light microscopyOrdered By: Colten Fry on 08-19-2022 Epithelial cells.squamous LM Ql (Urine sed) 20-30 [HPF] 0-2 [facility] Urine bacteria detection by automated methodOrdered By: Gilson Castro on 08-19-2022 Bacteria Auto Ql (U) 2+ None Seen [facility] Urine bacteria detection by automated methodOrdered By: Colten Fry on 08-19-2022 Bacteria Auto Ql (U) 1+ None Seen [facility] Urine clarity by refractomet ry automatedOrdered By: Gilson Castro on 08-19-2022 Clarity Refractometry automated (U) Turbid Clear [facility] Urine clarity by refractomet ry automatedOrdered By: Colten Fry on 08-19-2022 Clarity Refractometry automated (U) Cloudy Clear [facility] Urine glucose measurement by automated test strip (mass/volume)Ordered By: Gilson Castro on 08-19-2022 Glucose Auto test strip (U) [Mass/Vol] Normal mg/dL Normal [facility] Urine glucose measurement by automated test strip (mass/volume)Ordered By: Colten Fry on 08-19-2022 Glucose Auto test strip (U) [Mass/Vol] Normal mg/dL Normal [facility] Urine hemoglobin detection b y automated test stripOrdered By: Gilson Castro on 08-19-2022 Hemoglobin Auto test strip Ql (U) Negative Negative [facility] Urine hemoglobin detection b y automated test stripOrdered By: Colten Fry on 08-19-2022 Hemoglobin Auto test strip Ql (U) Negative Negative [facility] Urine leukocyte esterase det ection by automated test stripOrdered By: Gilson Castro on 08-19-2022 Leukocyte esterase Auto test strip Ql (U) 2+ Negative [facility] Urine leukocyte esterase det ection by automated test stripOrdered By: Colten Fry on 08-19-2022 Leukocyte esterase Auto test strip Ql (U) 1+ Negative [facility] Urobilinogen Auto test strip (U) [Mass/Vol]Ordered By: Gilson Castro on 08-19-2022 Urobilinogen (U) [Mass/Vol] Normal mg/dL Normal [facility] Urobilinogen Auto test strip (U) [Mass/Vol]Ordered By: Colten Fry on 08-19-2022 Urobilinogen (U) [Mass/Vol] Normal mg/dL Normal [facility] pH Auto test strip (U)Ordere d By: Gilson Castro on 08-19-2022 pH (U) 8.0 [pH] 5.0-9.0 [facility] pH Auto test strip (U)Ordere d By: Colten Fry on 08-19-2022 pH (U) 6.0 [pH] 5.0-9.0 [facility] COVID-19 SOFIAOrdered By: Lul Rivera on 08-18-2022 SARS-CoV+SARS-CoV-2 (COVID-19) Ag IA.rapid Ql (Resp) Negative Negative [facility] Comment on above: This is a duplicate [facility]ia SARS Antigen (JOSE A) result to be used for statistical tracking purpose only. No Panel InformationOrdered By: Joss Rivera on 08-18-2022 SARS Antigen (LFIA) [facility] Basophils Auto (Bld) [#/Vol] Ordered By: Modesta Chand on 06-25-2022 Basophils (Bld) [#/Vol] 0.1 10*3/uL 0.0-0.1 [facility] Basophils/100 WBC Auto (Bld) Ordered By: Modesta Chand on 06-25-2022 Basophils/100 WBC (Bld) 1.2 % . [facility] Blood hemoglobin measurement (mass/volume)Ordered By: Modesta Chand on 06-25-2022 Hemoglobin (Bld) [Mass/Vol] 13.8 g/dL 12.0-16.0 [facility] Blood leukocytes automated c ount (number/volume)Ordered By: Modesta Chand on 06-25-2022 WBC (Bld) [#/Vol] 7.9 10*3/uL 4.5-13.5 [facility] Body fluid albumin measureme nt (mass/volume)Ordered By: Modesta Chand on 06-25-2022 Albumin (Body fld) [Mass/Vol] 4.5 g/dL 3.2-5.[address] [facility] [address] biopsyOrdered By: Yasmine Chand on 06-25-2022 Transferrin [Mass/Vol] 328 mg/dL 180-[facility] and Glomerular fi ltration rate.predicted panel (S/P/Bld)Ordered By: Modesta Chand on 06-25-2022 Creatinine [Mass/Vol] 0.67 mg/dL 0.44-1.03 [facility] Eosinophils Auto (Bld) [#/Vo l]Ordered By: Modesta Chand on 06-25-2022 Eosinophils (Bld) [#/Vol] 0.6 10*3/uL 0.0-0.7 [facility] Eosinophils/100 WBC Auto (Bl d)Ordered By: Modesta Chand on 06-25-2022 Eosinophils/100 WBC (Bld) 7.2 % . [facility] Erythrocyte distribution wid th Auto (RBC) [Ratio]Ordered By: Modesta Chand on 06-25-2022 Erythrocyte distribution width (RBC) [Ratio] 13.6 % 11.9-15.3 [facility] Estimated glomerular filtrat ion rate (GFR) non- AmericanOrdered By: Modesta Chand on 06-25-2022 GFR/1.73 sq M.predicted among non-blacks MDRD (S/P/Bld) [Vol rate/Area] > 60 mL/Min [facility] Ferritin [Mass/volume] in Se rum or PlasmaOrdered By: Modesta Chand on 06-25-2022 Ferritin [Mass/Vol] 28.5 ng/mL 11-306.8 [facility] Globulin Calc (S) [Mass/Vol] Ordered By: Modesta Chand on 06-25-2022 Globulin (S) [Mass/Vol] 2.5 g/dL [facility] Hematocrit Auto (Bld) [Volum e fraction]Ordered By: Modesta Chand on 06-25-2022 Hematocrit (Bld) [Volume fraction] 42.3 % 36.0-46.0 [facility] Iron [Mass/volume] in Serum or PlasmaOrdered By: Modesta Chand on 06-25-2022 Iron [Mass/Vol] 52 ug/dL 40-150 [facility] Iron binding capacity [Mass/ volume] in Serum or PlasmaOrdered By: Modesta Chand on 06-25-2022 Iron binding capacity [Mass/Vol] 459 ug/dL 255-450 [facility] Iron saturation [Mass Fracti on] in Serum or PlasmaOrdered By: Modesta Chand on 06-25-2022 Iron saturation [Mass fraction] 11.0 % 20-50 [facility] Laboratory - Hematology and Cell countsOrdered By: Modesta Chand on 06-25-2022 Nucleated RBC/100 WBC (Bld) [Ratio] 0.0 % 0-0.5 [facility] Lymphocytes Auto (Bld) [#/Vo l]Ordered By: Modesta Chand on 06-25-2022 Lymphocytes (Bld) [#/Vol] 2.1 10*3/uL 1.20-4.8 [facility] Lymphocytes/100 WBC Auto (Bl d)Ordered By: Modesta Chand on 06-25-2022 Lymphocytes/100 WBC (Bld) 26.9 % . [facility] MCH Auto (RBC) [Entitic mass ]Ordered By: Modesta Chnad on 06-25-2022 MCH (RBC) [Entitic mass] 28.1 pg 25.0-35.0 [facility] MCHC Auto (RBC) [Mass/Vol]Or dered By: Modesta Chand on 06-25-2022 MCHC (RBC) [Mass/Vol] 32.7 g/dL 31.0-37.0 [facility] MCV Auto (RBC) [Entitic vol] Ordered By: Modesta Chand on 06-25-2022 MCV (RBC) [Entitic vol] 85.8 fL 78-102 [facility] Monocytes Auto (Bld) [#/Vol] Ordered By: Modesta Chand on 06-25-2022 Monocytes (Bld) [#/Vol] 0.6 10*3/uL 0.1-1.00 [facility] Monocytes/100 WBC Auto (Bld) Ordered By: Modesta Chand on 06-25-2022 Monocytes/100 WBC (Bld) 7.2 % . [facility] Neutrophils Auto (Bld) [#/Vo l]Ordered By: Modesta Chand on 06-25-2022 Neutrophils (Bld) [#/Vol] 4.5 10*3/uL 1.2-7.7 [facility] Neutrophils/100 WBC Auto (Bl d)Ordered By: Modesta Chand on 06-25-2022 Neutrophils/100 WBC (Bld) 57.5 % . [facility] No Panel InformationOrdered By: Modesta Chand on 06-25-2022 25-Hydroxy Vitamin D Total 35.9 ng/mL 30-100 [facility] Comment on above: VITAMIN D STATUS 25( [place])VITAMIN D RANGE (ng/mL) Deficient <20 Insufficient 20 to <30 Sufficient 30 to 100 Reference: Danica MF,Chayo NC, Sony GUERRERO, et al. Evaluation,treatment, and prevention of vitamin D deficiency; an Endocrine Society clinical practice guideline. JCEM. 2010; 96(7):1911-30. Absolute Reticulocyte Count 0.066 10*6/uL 0.024-0.08 4 [facility] Estimated GFR () > 60 mL/Min [facility] Comment on above: GFR estimated refere nce range: According to KDOQI guidelines, <60 ml/min/1.73m2 is sufficient to diagnose a patient with chronic kidney disease. Percent Reticulocyte Count 1.3 % 0.5-1.5 [facility] Creatinine Clearance (Chem N/A [facility] Platelet mean volume Auto (B ld) [Entitic vol]Ordered By: Modesta Chand on 06-25-2022 Platelet mean volume (Bld) [Entitic vol] 9.0 fL 6.3-10.7 [facility] Platelets Auto (Bld) [#/Vol] Ordered By: Modesta Chand on 06-25-2022 Platelets (Bld) [#/Vol] 263 10*3/uL 150-450 [facility] Protein [Mass/volume] in Ser um or PlasmaOrdered By: Modesta Chand on 06-25-2022 Protein [Mass/Vol] 7.0 g/dL 6.1-7.9 [facility] RBC Auto (Bld) [#/Vol]Ordere d By: Modesta Chand on 06-25-2022 RBC (Bld) [#/Vol] 4.94 10*6/uL 4.10-5.10 [facility] Serum or plasma alanine florez otransferase measurement without P-5'-P (enzymatic activiOrdered By: Modesta Chand on 06-25-2022 ALT No additional P-5'-P [Catalytic activity/Vol] 18 U/L 10-60 [facility] Serum or plasma albumin/glob ulin mass ratioOrdered By: Modesta Chand on 06-25-2022 Albumin/Globulin [Mass ratio] 1.8 {ratio} [facility] Serum or plasma alkaline justin sphatase measurement (enzymatic activity/volume)Ordered By: Modesta Chand on 06-25-2022 ALP [Catalytic activity/Vol] 65 U/L 32-92 [facility] Serum or plasma aspartate am inotransferase measurement (enzymatic activity/volume)Ordered By: Modesta Chand on 06-25-2022 AST [Catalytic activity/Vol] 18 U/L 10-42 [facility] Serum or plasma calcium tammy urement (mass/volume)Ordered By: Modesta Chand on 06-25-2022 Calcium [Mass/Vol] 10.2 mg/dL 8.2-10.2 [facility] Serum or plasma chloride judy surement (moles/volume)Ordered By: Modesta Chand on 06-25-2022 Chloride [Moles/Vol] 102 mmol/L 95-114 [facility] Serum or plasma glucose tammy urement (mass/volume)Ordered By: Modesta Chand on 06-25-2022 Glucose [Mass/Vol] 87 mg/dL 70-100 [facility] Comment on above: ADA recommended refe rence [...] on 06-25-2022 Sodium [Moles/Vol] 137 mmol/L 136-146 [facility] Serum or plasma total biliru bin measurement (mass/volume)Ordered By: Modesta Chand on 06-25-2022 Bilirubin [Mass/Vol] 0.4 mg/dL 0.3-1.2 [facility] Serum or plasma total carbon dioxide measurement (moles/volume)Ordered By: Modesta Chand on 06-25-2022 CO2 [Moles/Vol] 23.8 mmol/L 22.0-30.0 [facility] Serum or plasma urea nitroge n measurement (mass/volume)Ordered By: Modesta Chand on 06-25-2022 Urea nitrogen [Mass/Vol] 14 mg/dL 9-23 [facility] TSH DL <= 0.005 mIU/L QnOrde red By: Modesta Chand on 06-25-2022 TSH Qn 1.05 m[IU]/L 0.45-5.33 [facility] Thyroxine (T4) free [Mass/vo lume] in Serum or PlasmaOrdered By: Modesta Chand on 06-25-2022 Free T4 [Mass/Vol] 0.74 ng/dL 0.61-1.12 [facility] HCG ( test) IA.rapi d Ql (U)Ordered By: Brennen Britt on 06-09-2022 HCG ( test) Ql (U) Negative [facility] COVID-19 Positive/NegativeOr dered By: Brennen Britt on 06-07-2022 SARS-CoV-2 (COVID-19) N gene JANAK+probe Ql (Resp) Negative Negative [facility] Comment on above: Testing for SARS-CoV -2 by RT-PCR This test was developed and its performance characteristics determined by [employer] ([employer]) and validated at the [facility]. This test has not been [...] on 05-26-2022 Albumin [Mass/Vol] 3.9 g/dL 3.2-5.5 [facility] Basophils Auto (Bld) [#/Vol] Ordered By: Modesta Chand on 05-26-2022 Basophils (Bld) [#/Vol] 0.1 10*3/uL 0.0-0.1 [facility] Basophils/100 WBC Auto (Bld) Ordered By: Modesta Chand on 05-26-2022 Basophils/100 WBC (Bld) 1.1 % . [facility] Blood hemoglobin measurement (mass/volume)Ordered By: Modesta Chand on 05-26-2022 Hemoglobin (Bld) [Mass/Vol] 13.6 g/dL 12.0-16.0 [facility] Blood leukocytes automated c ount (number/volume)Ordered By: Modesta Chand on 05-26-2022 WBC (Bld) [#/Vol] 10.6 10*3/uL 4.5-13.5 [facility] C reactive protein [Mass/vol ume] in Serum or PlasmaOrdered By: Modesta Chand on 05-26-2022 CRP [Mass/Vol] 0.6 mg/dL 0.0-1.[address] [facility] [address] biopsyOrdered By: Yasmine Chand on 05-26-2022 Transferrin [Mass/Vol] 292 mg/dL 180-380 Fi [facility] Creatinine and Glomerular fi ltration rate.predicted panel (S/P/Bld)Ordered By: Modesta Chand on 05-26-2022 Creatinine [Mass/Vol] 0.63 mg/dL 0.44-1.03 [facility] Eosinophils Auto (Bld) [#/Vo l]Ordered By: Modesta Chand on 05-26-2022 Eosinophils (Bld) [#/Vol] 0.4 10*3/uL 0.0-0.7 [facility] Eosinophils/100 WBC Auto (Bl d)Ordered By: Modesta Chand on 05-26-2022 Eosinophils/100 WBC (Bld) 3.6 % . [facility] Erythrocyte distribution wid th Auto (RBC) [Ratio]Ordered By: Modesta Chand on 05-26-2022 Erythrocyte distribution width (RBC) [Ratio] 13.7 % 11.9-15.3 [facility] Erythrocyte sedimentation ra te by Photometric methodOrdered By: Modesta Chand on 05-26-2022 ESR Photometric method (Bld) [Velocity] 5 mm/hr 0-19 [facility] Estimated glomerular filtrat ion rate (GFR) non- AmericanOrdered By: Modesta Chand on 05-26-2022 GFR/1.73 sq M.predicted among non-blacks MDRD (S/P/Bld) [Vol rate/Area] > 60 mL/Min [facility] Ferritin [Mass/volume] in Se rum or PlasmaOrdered By: Modesta Chand on 05-26-2022 Ferritin [Mass/Vol] 14.2 ng/mL 11-306.8 [facility] Folate [Mass/volume] in Seru m or PlasmaOrdered By: Modesta Chand on 05-26-2022 Folate [Mass/Vol] 13.0 ng/mL >5.9 [facility] Comment on above: Folate reference ran ge: >5.9 ng/ml The WHO technical consultation on folate and vitamin b12 deficiencies has determined that folate concentrations less than 4 ng/ml are considered deficient. Globulin Calc (S) [Mass/Vol] Ordered By: Modesta Chand on 05-26-2022 Globulin (S) [Mass/Vol] 2.3 g/dL [facility] Glucose mean value [Mass/vol ume] in Blood Estimated from glycated hemoglobinOrdered By: Modesta Chand on 05-26-2022 Average glucose Estimated from glycated hemoglobin (Bld) [Mass/Vol] 111 mg/dL [facility] Hematocrit Auto (Bld) [Volum e fraction]Ordered By: Modesta Chand on 05-26-2022 Hematocrit (Bld) [Volume fraction] 41.4 % 36.0-46.0 [facility] Hemoglobin A1c percentageOrd ered By: Modesta Chand on 05-26-2022 HbA1c (Bld) [Mass fraction] 5.5 % 4.3-5.6 [facility] Comment on above: Increased risk for d iabetes: 5.7 - 6.4 diabetes: >6.4 glycemic control for adults with diabetes: <7.0 Iron [Mass/volume] in Serum or PlasmaOrdered By: Modesta Chand on 05-26-2022 Iron [Mass/Vol] 63 ug/dL 40-150 [facility] Iron binding capacity [Mass/ volume] in Serum or PlasmaOrdered By: Modesta Chand on 05-26-2022 Iron binding capacity [Mass/Vol] 409 ug/dL 255-450 [facility] Iron saturation [Mass Fracti on] in Serum or PlasmaOrdered By: Modesta Chand on 05-26-2022 Iron saturation [Mass fraction] 15.0 % 20-50 [facility] Laboratory - Chemistry and C hemistry - challengeOrdered By: Modesta Chand on 05-26-2022 Cobalamin (Vitamin B12) [Mass/Vol] 329 pg/mL 180-914 [facility] Laboratory - Hematology and Cell countsOrdered By: Modesta Chand on 05-26-2022 Nucleated RBC/100 WBC (Bld) [Ratio] 0.0 % 0-0.5 [facility] Lymphocytes Auto (Bld) [#/Vo l]Ordered By: Modesta Chand on 05-26-2022 Lymphocytes (Bld) [#/Vol] 2.3 10*3/uL 1.20-4.8 [facility] Lymphocytes/100 WBC Auto (Bl d)Ordered By: Modesta Chand on 05-26-2022 Lymphocytes/100 WBC (Bld) 21.6 % . [facility] MCH Auto (RBC) [Entitic mass ]Ordered By: Modesta Chand on 05-26-2022 MCH (RBC) [Entitic mass] 28.6 pg 25.0-35.0 [facility] MCHC Auto (RBC) [Mass/Vol]Or dered By: Modesta Chand on 05-26-2022 MCHC (RBC) [Mass/Vol] 33.0 g/dL 31.0-37.0 [facility] MCV Auto (RBC) [Entitic vol] Ordered By: Modesta Chand on 05-26-2022 MCV (RBC) [Entitic vol] 86.6 fL 78-102 [facility] Monocytes Auto (Bld) [#/Vol] Ordered By: Modesta Chand on 05-26-2022 Monocytes (Bld) [#/Vol] 0.6 10*3/uL 0.1-1.00 [facility] Monocytes/100 WBC Auto (Bld) Ordered By: Modesta Chand on 05-26-2022 Monocytes/100 WBC (Bld) 5.9 % . [facility] Neutrophils Auto (Bld) [#/Vo l]Ordered By: Modesta Chand on 05-26-2022 Neutrophils (Bld) [#/Vol] 7.2 10*3/uL 1.2-7.7 [facility] Neutrophils/100 WBC Auto (Bl d)Ordered By: Modesta Chand on 05-26-2022 Neutrophils/100 WBC (Bld) 67.8 % . [facility] No Panel InformationOrdered By: Modesta Chand on 05-26-2022 25-Hydroxy Vitamin D Total 26.9 ng/mL 30-100 [facility] Comment on above: VITAMIN D STATUS 25( [place])VITAMIN D RANGE (ng/mL) Deficient <20 Insufficient 20 to <30 Sufficient 30 to 100 Reference: Danica MF,Chayo NC, Sony GUERRERO, et al. Evaluation,treatment, and prevention of vitamin D deficiency; an Endocrine Society clinical practice guideline. JCEM. 2010; 96(7):1911-30. Estimated GFR () > 60 mL/Min [facility] Comment on above: GFR estimated refere nce range: According to KDOQI guidelines, <60 ml/min/1.73m2 is sufficient to diagnose a patient with chronic kidney disease. Pharmacy Creatinine Clearance (Chem N/A [facility] Platelet mean volume Auto (B ld) [Entitic vol]Ordered By: Modesta Chand on 05-26-2022 Platelet mean volume (Bld) [Entitic vol] 8.9 fL 6.3-10.7 [facility] Platelets Auto (Bld) [#/Vol] Ordered By: Modesta Chand on 05-26-2022 Platelets (Bld) [#/Vol] 286 10*3/uL 150-450 [facility] Protein [Mass/volume] in Ser um or PlasmaOrdered By: Modesta Chand on 05-26-2022 Protein [Mass/Vol] 6.2 g/dL 6.1-7.9 [facility] RBC Auto (Bld) [#/Vol]Ordere d By: Modesta Chand on 05-26-2022 RBC (Bld) [#/Vol] 4.78 10*6/uL 4.10-5.10 [facility] Serum nuclear antibody titer Ordered By: Modesta Chand on 05-26-2022 Nuclear Ab (S) [Titer] Negative . [facility] Comment on above: Negative <1:80 Borderline 1:80 Positive >1:80 ICAP nomenclature: AC-0 For more information about Hep-2 cell patterns use ANApatterns.org, the official website for the International Consensus on Antinuclear Antibody (EDMOND) Patterns (ICAP). Performed at: - [facility] [id number] [employer] Operator: James Nelson PhD, Phone: [phone] Serum or plasma alanine florez otransferase measurement without P-5'-P (enzymatic activiOrdered By: Modesta Chand on 05-26-2022 ALT No additional P-5'-P [Catalytic activity/Vol] 50 U/L 10-60 [facility] Serum or plasma albumin/glob ulin mass ratioOrdered By: Modesta Chand on 05-26-2022 Albumin/Globulin [Mass ratio] 1.7 {ratio} [facility] Serum or plasma alkaline justin sphatase measurement (enzymatic activity/volume)Ordered By: Modesta Chand on 05-26-2022 ALP [Catalytic activity/Vol] 58 U/L 32-92 [facility] Serum or plasma aspartate am inotransferase measurement (enzymatic activity/volume)Ordered By: Modesta Chand on 05-26-2022 AST [Catalytic activity/Vol] 25 U/L 10-42 [facility] Serum or plasma calcium tammy urement (mass/volume)Ordered By: Modesta Chand on 05-26-2022 Calcium [Mass/Vol] 9.3 mg/dL 8.2-10.2 [facility] Serum or plasma chloride judy surement (moles/volume)Ordered By: Modesta Chand on 05-26-2022 Chloride [Moles/Vol] 103 mmol/L 95-114 [facility] Serum or plasma glucose tammy urement (mass/volume)Ordered By: Modesta Chand on 05-26-2022 Glucose [Mass/Vol] 111 mg/dL 70-100 [facility] Comment on above: ADA recommended refe rence [...] on 05-26-2022 Sodium [Moles/Vol] 137 mmol/L 136-146 [facility] Serum or plasma total biliru bin measurement (mass/volume)Ordered By: Modesta Chand on 05-26-2022 Bilirubin [Mass/Vol] 0.5 mg/dL 0.3-1.2 [facility] Serum or plasma total carbon dioxide measurement (moles/volume)Ordered By: Modesta Chand on 05-26-2022 CO2 [Moles/Vol] 24.9 mmol/L 22.0-30.0 [facility] Serum or plasma urea nitroge n measurement (mass/volume)Ordered By: Modesta Chand on 05-26-2022 Urea nitrogen [Mass/Vol] 9 mg/dL 08-20 [facility] Urine culture routineOrdered By: Gilson Castro on 05-18-2022 Bacteria identified Cx Nom (U) 2 Days [facility] Amphetamine Screen Ql (U)Ord ered By: Gilson Castro on 05-16-2022 Amphetamines Ql (U) Negative Negative [facility] Automated erythrocytes count in urine sediment (number/area)Ordered By: Gilson Castro on 05-16-2022 RBC Auto (Urine sed) [#/Area] 3-4 [HPF] 0-4 [facility] Automated leukocytes count i n urine sediment (number/area)Ordered By: Gilson Castro on 05-16-2022 WBC Auto (Urine sed) [#/Area] 5-9 [HPF] 0-4 [facility] Automated urine hyaline cast s count (number/volume)Ordered By: Gilson Castro on 05-16-2022 Hyaline casts Auto (U) [#/Vol] None seen [LPF] 0-1 [facility] Barbiturates [Presence] in U rineOrdered By: Gilson Castro on 05-16-2022 Barbiturates Ql (U) Positive Negative [facility] Basophils Auto (Bld) [#/Vol] Ordered By: Gilson Castro on 05-16-2022 Basophils (Bld) [#/Vol] 0.0 10*3/uL 0.0-0.1 [facility] Basophils/100 WBC Auto (Bld) Ordered By: Gilson Castro on 05-16-2022 Basophils/100 WBC (Bld) 0.4 % . [facility] Benzodiazepines [Presence] i n UrineOrdered By: Gilson Castro on 05-16-2022 Benzodiazepines Ql (U) Negative Negative Fi [facility] Bilirubin Test strip Ql (U)O rdered By: Gilson Castro on 05-16-2022 Bilirubin Ql (U) Negative Negative [facility] Blood hemoglobin measurement (mass/volume)Ordered By: Gilson Castro on 05-16-2022 Hemoglobin (Bld) [Mass/Vol] 13.4 g/dL 12.0-16.0 [facility] Blood leukocytes automated c ount (number/volume)Ordered By: Gilson Castro on 05-16-2022 WBC (Bld) [#/Vol] 10.0 10*3/uL 4.5-13.5 [facility] Body fluid albumin measureme nt (mass/volume)Ordered By: Gilson Castro on 05-16-2022 Albumin (Body fld) [Mass/Vol] 4.3 g/dL 3.2-5.5 [facility] Cannabinoids [Presence] in U rine by Screen methodOrdered By: Gilson Castro on 05-16-2022 Cannabinoids Screen Ql (U) Positive Negative [facility] Comment on above: These are [...] (Urine sed) None seen [LPF] None Seen [facility] Color Auto (U)Ordered By: Pierce Castro on 05-16-2022 Color (U) Yellow Yellow [facility] Creatinine and Glomerular fi ltration rate.predicted panel (S/P/Bld)Ordered By: Gilson Castro on 05-16-2022 Creatinine [Mass/Vol] 0.80 mg/dL 0.44-1.03 [facility] Eosinophils Auto (Bld) [#/Vo l]Ordered By: Gilson Castro on 05-16-2022 Eosinophils (Bld) [#/Vol] 0.1 10*3/uL 0.0-0.7 [facility] Eosinophils/100 WBC Auto (Bl d)Ordered By: Gilson Castro on 05-16-2022 Eosinophils/100 WBC (Bld) 0.7 % . [facility] Erythrocyte distribution wid th Auto (RBC) [Ratio]Ordered By: Gilson Castro on 05-16-2022 Erythrocyte distribution width (RBC) [Ratio] 13.4 % 11.9-15.3 [facility] Estimated glomerular filtrat ion rate (GFR) non- AmericanOrdered By: Gilson Castro on 05-16-2022 GFR/1.73 sq M.predicted among non-blacks MDRD (S/P/Bld) [Vol rate/Area] > 60 mL/Min [facility] Globulin Calc (S) [Mass/Vol] Ordered By: Gilson Castro on 05-16-2022 Globulin (S) [Mass/Vol] 2.7 g/dL [facility] HCG ( test) IA.rapi d Ql (U)Ordered By: Gilson Castro on 05-16-2022 HCG ( test) Ql (U) Negative [facility] Hematocrit Auto (Bld) [Volum e fraction]Ordered By: Gilson Castro on 05-16-2022 Hematocrit (Bld) [Volume fraction] 39.4 % 36.0-46.0 [facility] Ketones Auto test strip (U) [Mass/Vol]Ordered By: Gilson Castro on 05-16-2022 Ketones (U) [Mass/Vol] 3+ Negative [facility] Laboratory - Chemistry and C hemistry - challengeOrdered By: Gilson Castro on 05-16-2022 Lipase [Catalytic activity/Vol] 26.0 U/L 22-51 [facility] Laboratory - Drug toxicology Ordered By: Gilson Castro on 05-16-2022 Opiates Ql (U) Negative Negative [facility] Laboratory - Hematology and Cell countsOrdered By: Gilson Castro on 05-16-2022 Nucleated RBC/100 WBC (Bld) [Ratio] 0.0 % 0-0.5 [facility] Lymphocytes Auto (Bld) [#/Vo l]Ordered By: Gilson Castro on 05-16-2022 Lymphocytes (Bld) [#/Vol] 1.9 10*3/uL 1.20-4.8 [facility] Lymphocytes/100 WBC Auto (Bl d)Ordered By: Gilson Castro on 05-16-2022 Lymphocytes/100 WBC (Bld) 18.7 % . [facility] MCH Auto (RBC) [Entitic mass ]Ordered By: Gilson Castro on 05-16-2022 MCH (RBC) [Entitic mass] 28.6 pg 25.0-35.0 [facility] MCHC Auto (RBC) [Mass/Vol]Or dered By: Gilson Castro on 05-16-2022 MCHC (RBC) [Mass/Vol] 34.1 g/dL 31.0-37.0 [facility] MCV Auto (RBC) [Entitic vol] Ordered By: Gilson Castro on 05-16-2022 MCV (RBC) [Entitic vol] 84.0 fL 78-102 [facility] Monocytes Auto (Bld) [#/Vol] Ordered By: Gilson Castro on 05-16-2022 Monocytes (Bld) [#/Vol] 0.9 10*3/uL 0.1-1.00 [facility] Monocytes/100 WBC Auto (Bld) Ordered By: Gilson Castro on 05-16-2022 Monocytes/100 WBC (Bld) 9.2 % . [facility] Neutrophils Auto (Bld) [#/Vo l]Ordered By: Gilson Castro on 05-16-2022 Neutrophils (Bld) [#/Vol] 7.1 10*3/uL 1.2-7.7 [facility] Neutrophils/100 WBC Auto (Bl d)Ordered By: Gilson Castro on 05-16-2022 Neutrophils/100 WBC (Bld) 71.0 % . [facility] Nitrite Test strip Ql (U)Ord ered By: Gilson Castro on 05-16-2022 Nitrite Ql (U) Negative Negative [facility] No Panel InformationOrdered By: Gilson Castro on 05-16-2022 Estimated GFR () > 60 mL/Min [facility] Comment on above: GFR estimated refere nce range: According to KDOQI guidelines, <60 ml/min/1.73m2 is sufficient to diagnose a patient with chronic kidney disease. Pharmacy Creatinine Clearance (Chem 109.65 [facility] Phencyclidine Screen Ql (U)O rdered By: Gilson Castro on 05-16-2022 Phencyclidine Ql (U) Negative Negative [facility] Platelet mean volume Auto (B ld) [Entitic vol]Ordered By: Gilson Castro on 05-16-2022 Platelet mean volume (Bld) [Entitic vol] 8.5 fL 6.3-10.7 [facility] Platelets Auto (Bld) [#/Vol] Ordered By: Gilson Castro on 05-16-2022 Platelets (Bld) [#/Vol] 241 10*3/uL 150-450 [facility] Protein Auto test strip (U) [Mass/Vol]Ordered By: Gilson Castro on 05-16-2022 Protein (U) [Mass/Vol] Trace mg/dL Negative [facility] Protein [Mass/volume] in Ser um or PlasmaOrdered By: Gilson Castro on 05-16-2022 Protein [Mass/Vol] 7.0 g/dL 6.1-7.9 [facility] RBC Auto (Bld) [#/Vol]Ordere d By: Gilson Castro on 05-16-2022 RBC (Bld) [#/Vol] 4.69 10*6/uL 4.10-5.10 [facility] [place] [facility] Serum or plasma alanine florez otransferase measurement without P-5'-P (enzymatic activiOrdered By: Gilson Castro on 05-16-2022 ALT No additional P-5'-P [Catalytic activity/Vol] 23 U/L 10-60 [facility] Serum or plasma albumin/glob ulin mass ratioOrdered By: Gilson Castro on 05-16-2022 Albumin/Globulin [Mass ratio] 1.6 {ratio} [facility] Serum or plasma alkaline justin sphatase measurement (enzymatic activity/volume)Ordered By: Gilson Castro on 05-16-2022 ALP [Catalytic activity/Vol] 58 U/L 32-92 [facility] Serum or plasma aspartate am inotransferase measurement (enzymatic activity/volume)Ordered By: Gilson Castro on 05-16-2022 AST [Catalytic activity/Vol] 22 U/L 10-42 [facility] Serum or plasma calcium tammy urement (mass/volume)Ordered By: Gilson Castro on 05-16-2022 Calcium [Mass/Vol] 9.2 mg/dL 8.2-10.2 [facility] Serum or plasma chloride judy surement (moles/volume)Ordered By: Gilson Castro on 05-16-2022 Chloride [Moles/Vol] 97 mmol/L 95-114 [facility] Serum or plasma glucose tammy urement (mass/volume)Ordered By: Gilson Castro on 05-16-2022 Glucose [Mass/Vol] 90 mg/dL 70-100 [facility] Comment on above: ADA recommended refe rence [...] on 05-16-2022 Sodium [Moles/Vol] 135 mmol/L 136-146 [facility] Serum or plasma total biliru bin measurement (mass/volume)Ordered By: Gilson Castro on 05-16-2022 Bilirubin [Mass/Vol] 1.0 mg/dL 0.3-1.2 [facility] Serum or plasma total carbon dioxide measurement (moles/volume)Ordered By: Gilson Castro on 05-16-2022 CO2 [Moles/Vol] 24.6 mmol/L 22.0-30.0 [facility] Serum or plasma urea nitroge n measurement (mass/volume)Ordered By: Gilson Castro on 05-16-2022 Urea nitrogen [Mass/Vol] 23 mg/dL 9- [facility] Specific gravity Auto test s trip (U) [Rel density]Ordered By: Gilson Castro on 05-16-2022 Specific gravity (U) [Rel density] 1.023 1.001-1.03 0 [facility] Squamous epithelial cells de tection in urine sediment by light microscopyOrdered By: Gilson Castro on 05-16-2022 Epithelial cells.squamous LM Ql (Urine sed) 20-30 [HPF] 0-2 [facility] Urine bacteria detection by automated methodOrdered By: Gilson Castro on 05-16-2022 Bacteria Auto Ql (U) 1+ None Seen [facility] Urine clarity by refractomet ry automatedOrdered By: Gilson Castro on 05-16-2022 Clarity Refractometry automated (U) Turbid Clear [facility] Urine cocaine detectionOrder ed By: Gilson Castro on 05-16-2022 Cocaine Ql (U) Negative Negative [facility] Urine glucose measurement by automated test strip (mass/volume)Ordered By: Gilson Castro on 05-16-2022 Glucose Auto test strip (U) [Mass/Vol] Normal mg/dL Normal [facility] Urine hemoglobin detection b y automated test stripOrdered By: Gilson Castro on 05-16-2022 Hemoglobin Auto test strip Ql (U) Negative Negative [facility] Urine leukocyte esterase det ection by automated test stripOrdered By: Gilson Castro on 05-16-2022 Leukocyte esterase Auto test strip Ql (U) 2+ Negative [facility] Urobilinogen Auto test strip (U) [Mass/Vol]Ordered By: Gilson Castro on 05-16-2022 Urobilinogen (U) [Mass/Vol] Normal mg/dL Normal [facility] pH Auto test strip (U)Ordere d By: Gilson Castro on 05-16-2022 pH (U) 8.0 [pH] 5.0-9.0 [facility] Albumin [Mass/volume] in Ser um or PlasmaOrdered By: Art Bianchi on 05-15-2022 Albumin [Mass/Vol] 4.7 g/dL 3.2-5.5 [facility] Basophils Auto (Bld) [#/Vol] Ordered By: Art Bianchi on 05-15-2022 Basophils (Bld) [#/Vol] 0.0 10*3/uL 0.0-0.1 [facility] Basophils/100 WBC Auto (Bld) Ordered By: Art Bianchi on 05-15-2022 Basophils/100 WBC (Bld) 0.2 % . [facility] Blood hemoglobin measurement (mass/volume)Ordered By: Art Bianchi on 05-15-2022 Hemoglobin (Bld) [Mass/Vol] 13.6 g/dL 12.0-16.0 [facility] Blood leukocytes automated c ount (number/volume)Ordered By: Art Bianchi on 05-15-2022 WBC (Bld) [#/Vol] 14.0 10*3/uL 4.5-13.5 [facility] [place] [facility] Creatinine and Glomerular fi ltration rate.predicted panel (S/P/Bld)Ordered By: Art Bianchi on 05-15-2022 Creatinine [Mass/Vol] 0.76 mg/dL 0.44-1.03 [facility] Eosinophils Auto (Bld) [#/Vo l]Ordered By: Art Bianchi on 05-15-2022 Eosinophils (Bld) [#/Vol] 0.0 10*3/uL 0.0-0.7 [facility] Eosinophils/100 WBC Auto (Bl d)Ordered By: Art Bianchi on 05-15-2022 Eosinophils/100 WBC (Bld) 0.4 % . [facility] Erythrocyte distribution wid th Auto (RBC) [Ratio]Ordered By: Art Bianchi on 05-15-2022 Erythrocyte distribution width (RBC) [Ratio] 13.7 % 11.9-15.3 [facility] Estimated glomerular filtrat ion rate (GFR) non- AmericanOrdered By: Art Bianchi on 05-15-2022 GFR/1.73 sq M.predicted among non-blacks MDRD (S/P/Bld) [Vol rate/Area] > 60 mL/Min [facility] Globulin Calc (S) [Mass/Vol] Ordered By: Art Bianchi on 05-15-2022 Globulin (S) [Mass/Vol] 3.2 g/dL [facility] Hematocrit Auto (Bld) [Volum e fraction]Ordered By: Art Bianchi on 05-15-2022 Hematocrit (Bld) [Volume fraction] 41.0 % 36.0-46.0 [facility] Laboratory - Chemistry and C hemistry - challengeOrdered By: Art Bianchi on 05-15-2022 Lipase [Catalytic activity/Vol] 24.0 U/L 22-51 [facility] Laboratory - Hematology and Cell countsOrdered By: Art Bianchi on 05-15-2022 Nucleated RBC/100 WBC (Bld) [Ratio] 0.0 % 0-0.5 [facility] Lymphocytes Auto (Bld) [#/Vo l]Ordered By: Art Bianchi on 05-15-2022 Lymphocytes (Bld) [#/Vol] 2.6 10*3/uL 1.20-4.8 [facility] Lymphocytes/100 WBC Auto (Bl d)Ordered By: Art Bianchi on 05-15-2022 Lymphocytes/100 WBC (Bld) 18.4 % . [facility] MCH Auto (RBC) [Entitic mass ]Ordered By: Art Bianchi on 05-15-2022 MCH (RBC) [Entitic mass] 28.0 pg 25.0-35.0 [facility] MCHC Auto (RBC) [Mass/Vol]Or dered By: Art Bianchi on 05-15-2022 MCHC (RBC) [Mass/Vol] 33.3 g/dL 31.0-37.0 [facility] MCV Auto (RBC) [Entitic vol] Ordered By: Art Bianchi on 05-15-2022 MCV (RBC) [Entitic vol] 84.1 fL 78-102 [facility] Monocytes Auto (Bld) [#/Vol] Ordered By: Art Bianchi on 05-15-2022 Monocytes (Bld) [#/Vol] 1.2 10*3/uL 0.1-1.00 [facility] Monocytes/100 WBC Auto (Bld) Ordered By: Art Bianchi on 05-15-2022 Monocytes/100 WBC (Bld) 8.3 % . [facility] Neutrophils Auto (Bld) [#/Vo l]Ordered By: Art Bianchi on 05-15-2022 Neutrophils (Bld) [#/Vol] 10.2 10*3/uL 1.2-7.7 [facility] Neutrophils/100 WBC Auto (Bl d)Ordered By: Art Bianchi on 05-15-2022 Neutrophils/100 WBC (Bld) 72.7 % . [facility] No Panel InformationOrdered By: Art Bianchi on 05-15-2022 Estimated GFR () > 60 mL/Min [facility] Comment on above: GFR estimated refere nce range: According to KDOQI guidelines, <60 ml/min/1.73m2 is sufficient to diagnose a patient with chronic kidney disease. Pharmacy Creatinine Clearance (Chem 115.34 [facility] Platelet mean volume Auto (B ld) [Entitic vol]Ordered By: Art Bianchi on 05-15-2022 Platelet mean volume (Bld) [Entitic vol] 8.8 fL 6.3-10.7 [facility] Platelets Auto (Bld) [#/Vol] Ordered By: Art Bianchi on 05-15-2022 Platelets (Bld) [#/Vol] 315 10*3/uL 150-450 [facility] Protein [Mass/volume] in Ser um or PlasmaOrdered By: Art Bianchi on 05-15-2022 Protein [Mass/Vol] 7.9 g/dL 6.1-7.9 [facility] RBC Auto (Bld) [#/Vol]Ordere d By: Art Bianchi on 05-15-2022 RBC (Bld) [#/Vol] 4.88 10*6/uL 4.10-5.10 [facility] [place] [facility] Serum or plasma alanine florez otransferase measurement without P-5'-P (enzymatic activiOrdered By: Art Bianchi on 05-15-2022 ALT No additional P-5'-P [Catalytic activity/Vol] 25 U/L 10-60 [facility] Serum or plasma albumin/glob ulin mass ratioOrdered By: Art Bianchi on 05-15-2022 Albumin/Globulin [Mass ratio] 1.5 {ratio} [facility] Serum or plasma alkaline justin sphatase measurement (enzymatic activity/volume)Ordered By: Art Bianchi on 05-15-2022 ALP [Catalytic activity/Vol] 66 U/L 32-92 [facility] Serum or plasma aspartate am inotransferase measurement (enzymatic activity/volume)Ordered By: Art Bianchi on 05-15-2022 AST [Catalytic activity/Vol] 33 U/L 10-42 [facility] Serum or plasma calcium tammy urement (mass/volume)Ordered By: Art Bianchi on 05-15-2022 Calcium [Mass/Vol] 10.1 mg/dL 8.2-10.2 [facility] Serum or plasma chloride judy surement (moles/volume)Ordered By: Art Bianchi on 05-15-2022 Chloride [Moles/Vol] 94 mmol/L 95-114 [facility] Serum or plasma glucose tammy urement (mass/volume)Ordered By: Art Bianchi on 05-15-2022 Glucose [Mass/Vol] 102 mg/dL 70-100 [facility] Comment on above: ADA recommended refe rence [...] on 05-15-2022 Sodium [Moles/Vol] 135 mmol/L 136-146 [facility] Serum or plasma total biliru bin measurement (mass/volume)Ordered By: Art Bianchi on 05-15-2022 Bilirubin [Mass/Vol] 1.2 mg/dL 0.3-1.2 [facility] Serum or plasma total carbon dioxide measurement (moles/volume)Ordered By: Art Bianchi on 05-15-2022 CO2 [Moles/Vol] 22.2 mmol/L 22.0-30.0 [facility] Serum or plasma urea nitroge n measurement (mass/volume)Ordered By: Art Bianchi on 05-15-2022 Urea nitrogen [Mass/Vol] 23 mg/dL 9-23 [facility] Albumin [Mass/volume] in Ser um or PlasmaOrdered By: Art Bianchi on 05-13-2022 Albumin [Mass/Vol] 4.3 g/dL 3.2-5.5 [facility] Automated erythrocytes count in urine sediment (number/area)Ordered By: Art Bianchi on 05-13-2022 RBC Auto (Urine sed) [#/Area] 1-2 [HPF] 0-4 [facility] Automated leukocytes count i n urine sediment (number/area)Ordered By: Art Bianchi on 05-13-2022 WBC Auto (Urine sed) [#/Area] 1-2 [HPF] 0-4 [facility] Basophils Auto (Bld) [#/Vol] Ordered By: Art Bianchi on 05-13-2022 Basophils (Bld) [#/Vol] 0.1 10*3/uL 0.0-0.1 [facility] Basophils/100 WBC Auto (Bld) Ordered By: Art Bianchi on 05-13-2022 Basophils/100 WBC (Bld) 1.0 % . [facility] Bilirubin Test strip Ql (U)O rdered By: Art Bianchi on 05-13-2022 Bilirubin Ql (U) Negative Negative [facility] Blood hemoglobin measurement (mass/volume)Ordered By: Art Bianchi on 05-13-2022 Hemoglobin (Bld) [Mass/Vol] 13.7 g/dL 12.0-16.0 [facility] Blood leukocytes automated c ount (number/volume)Ordered By: Art Bianchi on 05-13-2022 WBC (Bld) [#/Vol] 10.4 10*3/uL 4.5-13.5 [facility] [place] [facility] Color Auto (U)Ordered By: Adrian Bianchi on 05-13-2022 Color (U) Yellow Yellow [facility] Creatinine and Glomerular fi ltration rate.predicted panel (S/P/Bld)Ordered By: Art Bianchi on 05-13-2022 Creatinine [Mass/Vol] 0.76 mg/dL 0.44-1.03 [facility] Eosinophils Auto (Bld) [#/Vo l]Ordered By: Art Bianchi on 05-13-2022 Eosinophils (Bld) [#/Vol] 0.5 10*3/uL 0.0-0.7 [facility] Eosinophils/100 WBC Auto (Bl d)Ordered By: Art Bianchi on 05-13-2022 Eosinophils/100 WBC (Bld) 4.6 % . [facility] Erythrocyte distribution wid th Auto (RBC) [Ratio]Ordered By: Art Bianchi on 05-13-2022 Erythrocyte distribution width (RBC) [Ratio] 13.6 % 11.9-15.3 [facility] Estimated glomerular filtrat ion rate (GFR) non- AmericanOrdered By: Art Bianchi on 05-13-2022 GFR/1.73 sq M.predicted among non-blacks MDRD (S/P/Bld) [Vol rate/Area] > 60 mL/Min [facility] Globulin Calc (S) [Mass/Vol] Ordered By: Art Bianchi on 05-13-2022 Globulin (S) [Mass/Vol] 2.7 g/dL [facility] HCG ( test) IA.rapi d Ql (U)Ordered By: Art Bianchi on 05-13-2022 HCG ( test) Ql (U) Negative [facility] Hematocrit Auto (Bld) [Volum e fraction]Ordered By: Art Bianchi on 05-13-2022 Hematocrit (Bld) [Volume fraction] 40.5 % 36.0-46.0 [facility] Ketones Auto test strip (U) [Mass/Vol]Ordered By: Art Bianchi on 05-13-2022 Ketones (U) [Mass/Vol] Trace Negative [facility] Laboratory - Hematology and Cell countsOrdered By: Art Bianchi on 05-13-2022 Nucleated RBC/100 WBC (Bld) [Ratio] 0.0 % 0-0.5 [facility] Laboratory - UrinalysisOrder ed By: Art Bianchi on 05-13-2022 Hyaline casts LM Ql (Urine sed) 0-8 [LPF] 0-8 [facility] Lymphocytes Auto (Bld) [#/Vo l]Ordered By: Art Bianchi on 05-13-2022 Lymphocytes (Bld) [#/Vol] 1.4 10*3/uL 1.20-4.8 [facility] Lymphocytes/100 WBC Auto (Bl d)Ordered By: Art Bianchi on 05-13-2022 Lymphocytes/100 WBC (Bld) 13.1 % . [facility] MCH Auto (RBC) [Entitic mass ]Ordered By: Art Bianchi on 05-13-2022 MCH (RBC) [Entitic mass] 28.6 pg 25.0-35.0 [facility] MCHC Auto (RBC) [Mass/Vol]Or dered By: Art Bianchi on 05-13-2022 MCHC (RBC) [Mass/Vol] 33.7 g/dL 31.0-37.0 [facility] MCV Auto (RBC) [Entitic vol] Ordered By: Art Bianchi on 05-13-2022 MCV (RBC) [Entitic vol] 84.7 fL 78-102 [facility] Monocytes Auto (Bld) [#/Vol] Ordered By: Art Bianchi on 05-13-2022 Monocytes (Bld) [#/Vol] 0.4 10*3/uL 0.1-1.00 [facility] Monocytes/100 WBC Auto (Bld) Ordered By: Art Bianchi on 05-13-2022 Monocytes/100 WBC (Bld) 4.2 % . [facility] Neutrophils Auto (Bld) [#/Vo l]Ordered By: Art Bianchi on 05-13-2022 Neutrophils (Bld) [#/Vol] 8.0 10*3/uL 1.2-7.7 [facility] Neutrophils/100 WBC Auto (Bl d)Ordered By: Art Bianchi on 05-13-2022 Neutrophils/100 WBC (Bld) 77.1 % . [facility] Nitrite Test strip Ql (U)Ord ered By: Art Bianchi on 05-13-2022 Nitrite Ql (U) Negative Negative [facility] No Panel InformationOrdered By: Art Bianchi on 05-13-2022 Estimated GFR () > 60 mL/Min [facility] Comment on above: GFR estimated refere nce range: According to KDOQI guidelines, <60 ml/min/1.73m2 is sufficient to diagnose a patient with chronic kidney disease. Pharmacy Creatinine Clearance (Chem 112.80 [facility] Platelet mean volume Auto (B ld) [Entitic vol]Ordered By: Art Biancih on 05-13-2022 Platelet mean volume (Bld) [Entitic vol] 8.6 fL 6.3-10.7 [facility] Platelets Auto (Bld) [#/Vol] Ordered By: Art Bianchi on 05-13-2022 Platelets (Bld) [#/Vol] 264 10*3/uL 150-450 [facility] Protein Auto test strip (U) [Mass/Vol]Ordered By: Art Bianchi on 05-13-2022 Protein (U) [Mass/Vol] 30 mg/dL Negative [facility] Protein [Mass/volume] in Ser um or PlasmaOrdered By: Art Bianchi on 05-13-2022 Protein [Mass/Vol] 7.0 g/dL 6.1-7.9 [facility] RBC Auto (Bld) [#/Vol]Ordere d By: Art Bianchi on 05-13-2022 RBC (Bld) [#/Vol] 4.78 10*6/uL 4.10-5.10 [facility] [place] [facility] Serum or plasma alanine florez otransferase measurement without P-5'-P (enzymatic activiOrdered By: Art Bianchi on 05-13-2022 ALT No additional P-5'-P [Catalytic activity/Vol] 19 U/L 10-60 [facility] Serum or plasma albumin/glob ulin mass ratioOrdered By: Art Bianchi on 05-13-2022 Albumin/Globulin [Mass ratio] 1.6 {ratio} [facility] Serum or plasma alkaline justin sphatase measurement (enzymatic activity/volume)Ordered By: Art Bianchi on 05-13-2022 ALP [Catalytic activity/Vol] 69 U/L 32-92 [facility] Serum or plasma aspartate am inotransferase measurement (enzymatic activity/volume)Ordered By: Art Bianchi on 05-13-2022 AST [Catalytic activity/Vol] 19 U/L 10-42 [facility] Serum or plasma calcium tammy urement (mass/volume)Ordered By: Art Bianchi on 05-13-2022 Calcium [Mass/Vol] 9.9 mg/dL 8.2-10.2 [facility] Serum or plasma chloride judy surement (moles/volume)Ordered By: Art Bianchi on 05-13-2022 Chloride [Moles/Vol] 107 mmol/L 95-114 [facility] Serum or plasma glucose tammy urement (mass/volume)Ordered By: Art Bianchi on 05-13-2022 Glucose [Mass/Vol] 140 mg/dL 70-100 [facility] Comment on above: ADA recommended refe rence [...] on 05-13-2022 Sodium [Moles/Vol] 138 mmol/L 136-146 [facility] Serum or plasma total biliru bin measurement (mass/volume)Ordered By: Art Bianchi on 05-13-2022 Bilirubin [Mass/Vol] 0.5 mg/dL 0.3-1.2 [facility] Serum or plasma total carbon dioxide measurement (moles/volume)Ordered By: Art Bianchi on 05-13-2022 CO2 [Moles/Vol] 19.0 mmol/L 22.0-30.0 [facility] Serum or plasma urea nitroge n measurement (mass/volume)Ordered By: Art Bianchi on 05-13-2022 Urea nitrogen [Mass/Vol] 11 mg/dL 9-23 [facility] Specific gravity Auto test s trip (U) [Rel density]Ordered By: Art Bianchi on 05-13-2022 Specific gravity (U) [Rel density] 1.018 1.001-1.03 0 [facility] Squamous epithelial cells de tection in urine sediment by light microscopyOrdered By: Art Bianchi on 05-13-2022 Epithelial cells.squamous LM Ql (Urine sed) 20-30 [HPF] 0-2 [facility] Urine bacteria detection by automated methodOrdered By: Art Bianchi on 05-13-2022 Bacteria Auto Ql (U) 2+ None Seen [facility] Urine clarity by refractomet ry automatedOrdered By: Art Bianchi on 05-13-2022 Clarity Refractometry automated (U) Cloudy Clear [facility] Urine glucose measurement by automated test strip (mass/volume)Ordered By: Art Bianchi on 05-13-2022 Glucose Auto test strip (U) [Mass/Vol] Normal mg/dL Normal [facility] Urine hemoglobin detection b y automated test stripOrdered By: Art Bianchi on 05-13-2022 Hemoglobin Auto test strip Ql (U) Negative Negative [facility] Urine leukocyte esterase det ection by automated test stripOrdered By: Art Bianchi on 05-13-2022 Leukocyte esterase Auto test strip Ql (U) Negative Negative [facility] Urobilinogen Auto test strip (U) [Mass/Vol]Ordered By: Art Bianchi on 05-13-2022 Urobilinogen (U) [Mass/Vol] Normal mg/dL Normal [facility] pH Auto test strip (U)Ordere d By: Art Bianchi on 05-13-2022 pH (U) [pH] 5.0-9.0 [facility] CNPNon 10-10-2021 CNPN Telephone (OTOLMN) PILI PARIKH ([id number]) 3 F Date Time Provider Department 10/10/21 ROLANDO WOOTEN OTOLSONYA During your visit today, we recorded the following information about you: Rolando Wooten MD 10/10/2021 12:44 PM Signed Spoke with patient. Monospot positive. Waiting on CBC with diff - wbc 10. She feels ok, just sore throat after incision for [employer] yesterday. Ordered further labs as somewhat atypical [...] [B27.80] Order(s):HEPATIC FUNCTION PNL [SQHFP] Order #: [id number] FUTURE HIV 1 2 COMBO(AG/AB),WITH REFLEX TO DIFFERENTIATION [SQHIV12] Order #: [id number] FUTURE CMV IGG/IGM TITER [3239858] Order #: [id number] FUTURE LISSA-HENSON VCA IGM [SQEBVM] Order #: [id number] FUTURE EBV EA AB IGG [[id number]] Order #: [id number] FUTURE LISSA-HENSON VCA IGG [SQEBVG] Order #: [id number] FUTURE CMV IGG/IGM TITER [[id number]] Order #: [id number] EBV EA AB IGG [[id number]] Order #: [id number] Prescriptions as of 10/27/2021 - HYDROcodone-acetaminophen (HYCET) [...] Status:Closed by ROLANDO WOOTEN on 10/10/21 Normal [facility] AFB Cult and Stainon 021 AFB Cult and Stain Sp. Request/Comment: - Specimen received in sterile container. Smear Result - No acid fast bacilli seen by fluorochrome stain Culture Result - No Acid Fast Bacilli isolated after 46 days Normal [facility] Comment on above: Performed By: #### A FC #### [facility] [address], [place] [address] Anaerobe Cultureon 1 Anaerobe Culture Sp. Request/Comment: - Specimen received in sterile container. Culture Result - Few Mixed anaerobic jori --> ABNORMAL ALERT No Bacteroides fragilis group isolated. No Clostridium perfringens isolated Critically abnormal [facility] Comment on above: Performed By: #### A NACUL #### [facility] [address] [place], [place] [address] Basic Metabolic Panlon 10-09 Anion gap [Moles/Vol] 14 mmol/L Normal 9-18 [facility] [place] Comment on above: Result Comment: (NOT E) Reference ranges for this patient's age group have not been established. These reference ranges reflect verified or established ranges for the adult population. Interpret these ranges with caution using the clinical context and additional reference resources. Performed By: #### C BCDIF, BMP, MONOLX #### [facility] [address] [place], [place] [address] Calcium [Mass/Vol] 9.4 mg/dL Normal 8.4-10.2 [facility] Comment on above: Performed By: #### C BCDIF, BMP, MONOLX #### [facility] [address] [place], [place] [address] Chloride [Moles/Vol] 99 mmol/L Normal 97-105 [facility] Comment on above: Result Comment: (NOT E) Reference ranges for this patient's age group have not been established. These reference ranges reflect verified or established ranges for the adult population. Interpret these ranges with caution using the clinical context and additional reference resources. Performed By: #### C BCCHRISTEL SANDOVAL, MONOLX #### [facility] [address] [place], [place] [address] CO2 [Moles/Vol] 23 mmol/L Normal 22-30 [facility] Comment on above: Result Comment: (NOT E) Reference ranges for this patient's age group have not been established. These reference ranges reflect verified or established ranges for the adult population. Interpret these ranges with caution using the clinical context and additional reference resources. Performed By: #### C BCCHRISTEL SANDOVAL, MONOLX #### [facility] [address] [place], [place] [address] Creatinine [Mass/Vol] 0.64 mg/dL Normal 0.58-0.96 [facility] Comment on above: Result Comment: Refe rence ranges for this patient's age group have not been established. These reference ranges reflect verified or established ranges for the adult population. Interpret these ranges with caution using the clinical context and additional reference resources. Performed By: #### C CHRISTEL WHITESIDE, MONOLX #### [facility] [address] [place], [place] [address] eGFR-Ped. Factor 0.65 Normal [facility] Comment on above: Result Comment: eGFR [...] Performed By: #### C BCSAULFCHRISTEL, MONOLX #### [facility] [address] [place], [place] [address] Glucose [Mass/Vol] 89 mg/dL Normal 74-99 [facility] Comment on above: Result Comment: Refe rence ranges for this patient's age group have not been established. These reference ranges reflect verified or established ranges for the adult population. Interpret these ranges with caution using the clinical context and additional reference resources. The [place] Diabetes Association (ADA) provides guidance for cutoff [...] Standards of Medical Care in Diabetes 2016, [place] [employer] Association. Diabetes Care. 2016.39(Suppl 1). Performed By: #### C BCDIF, BMP, MONOLX #### [facility] [address] [place], [place] [address] Potassium [Moles/Vol] 4.4 mmol/L Normal 3.7-5.1 [facility] Comment on above: Result Comment: (NOT E) Reference ranges for this patient's age group have not been established. These reference ranges reflect verified or established ranges for the adult population. Interpret these ranges with caution using the clinical context and additional reference resources. Performed By: #### C BCDIF, BMP, MONOLX #### [facility] [address] [place], [place] [address] Sodium [Moles/Vol] 136 mmol/L Normal 136-144 [facility] Comment on above: Result Comment: (NOT E) Reference ranges for this patient's age group have not been established. These reference ranges reflect verified or established ranges for the adult population. Interpret these ranges with caution using the clinical context and additional reference resources. Performed By: #### C BCDIF, BMP, MONOLX #### [facility] [address] [place], [place] [address] Urea nitrogen [Mass/Vol] 8 mg/dL Normal 5-18 [facility] Comment on above: Performed By: #### C BCDIF, BMP, MONOLX #### [facility] [address] [place] [address] CBC and Differentialon 10-09 Abs Baso 0.11 k/uL High <0.11 [facility] Comment on above: Performed By: #### C BCDIF, BMP, MONOLX #### [place] [address] [place] [phone] Abs Lym 4.27 K/uL High 1.00-4.00 [facility] Comment on above: Performed By: #### C BCDIF, BMP, MONOLX #### [place] [phone] Abs [place] 1.10 k/uL High <0.87 [facility] Comment on above: Performed By: #### C BCDIF, BMP, MONOLX #### [place] [address] [place] [phone] Abs Neut 5.37 k/uL Normal 1.45-7.50 [facility] Comment on above: Performed By: #### C BCDIF, BMP, MONOLX #### [place] [address] [place] [phone] Basophils/100 WBC (Bld) 1 % Normal [facility] Comment on above: Performed By: #### C BCDIF, BMP, MONOLX #### [place] [address] [place] [address] Diff Comments SEE COMMENT Normal [facility] Comment on above: Result Comment: Plat elet estimate adequate Performed By: #### C BCDIF, BMP, MONOLX #### [place] [address] [place] [address] Eosinophils (Bld) [#/Vol] 0.11 10*3/uL Normal <0.46 [facility] Comment on above: Performed By: #### C BCDIF, BMP, MONOLX #### [facility] [address] [place], [place] [address] Eosinophils/100 WBC (Bld) 1 % Normal [facility] Comment on above: Performed By: #### C BCDIF, BMP, MONOLX #### [place] [address] [place], [place] [address] Erythrocyte distribution width (RBC) [Ratio] 13.4 % Normal 11.5-15.0 [facility] Comment on above: Performed By: #### C BCDIF, BMP, MONOLX #### [place] [address] [place], [place] [address] Hematocrit (Bld) [Volume fraction] 39.8 % Normal 36.0-46.0 [facility] Comment on above: Performed By: #### C BCDIF, BMP, MONOLX #### [place] [address] [place], [place] [address] Hemoglobin (Bld) [Mass/Vol] 12.5 g/dL Normal 11.5-15.5 [facility] Comment on above: Performed By: #### C BCDIF, BMP, MONOLX #### [facility] [address] [place], [place] [address] Lymphocytes/100 WBC (Bld) 39 % Normal [facility] Comment on above: Performed By: #### C BCDIF, BMP, MONOLX #### [facility] [address] [place], [place] [address] MCH 27.4 pG Normal 26.0-34.0 [facility] Comment on above: Performed By: #### C BCDIF, BMP, MONOLX #### [facility] [address] [place], [place] [address] MCHC (RBC) [Mass/Vol] 31.4 g/dL Normal 30.5-36.0 [facility] Comment on above: Performed By: #### C BCDIF, BMP, MONOLX #### [facility] [address] [place], [place] [address] MCV (RBC) [Entitic vol] 87.3 fL Normal 80.0-100.0 [facility] Comment on above: Performed By: #### C BCDIF, BMP, MONOLX #### [facility] [address] [place], [place] [address] Monocytes/100 WBC (Bld) 10 % Normal [facility] Comment on above: Performed By: #### C BCDIF, BMP, MONOLX #### [place] [address] [place], [place] [address] Neutrophils/100 WBC (Bld) 49 % Normal [facility] Comment on above: Performed By: #### C BCDIF, BMP, MONOLX #### [place] [address] [place], [place] [address] Platelet mean volume (Bld) [Entitic vol] 10.3 fL Normal 9.0-12.7 [facility] Comment on above: Performed By: #### C BCDIF, BMP, MONOLX #### [place] [address] [place], [place] [address] Platelets (Bld) [#/Vol] 218 10*3/uL Normal 150-400 [facility] Comment on above: Performed By: #### C BCDIF, BMP, MONOLX #### [facility] [address] [place], [place] [address] RBC (Bld) [#/Vol] 4.56 10*6/uL Normal 3.90-5.20 [facility] Comment on above: Performed By: #### C BCDIF, BMP, MONOLX #### [facility] [address] [place], [place] [address] Red Cell Morph SEE COMMENT Normal [facility] Comment on above: Result Comment: Slig ht Polychromasia Few Ovalocytes Performed By: #### C BCDIF, BMP, MONOLX #### [facility] [address] [place], [place] [address] WBC (Bld) [#/Vol] 10.95 10*3/uL Normal 3.70-11.00 [facility] Comment on above: Performed By: #### C BCDIF, BMP, MONOLX #### [facility] [address] [place], [place] [address] CNOVon 10-09-2021 CNOV Office Visit (OTOLMN ) PILI PARIKH ([id number]) 3 F Date Time Provider Department 10/09/21 [...] Rolando Wooten MD 11/13/2021 1:09 AM Signed [facility] This consult was requested by [...] passageways a (more content not included)... Normal [facility] Fungal Cultureon 10-09-2021 Fungal Culture Sp. Request/Comment: - Specimen received in sterile container. Culture Result - No Fungus isolated after 28 days Normal [facility] Comment on above: Performed By: #### F CUL #### [facility] [address] [place], [place] [address] [place] Slide Teston 10-09-2021 [place] Slide Test Positive Critically abnormal Negative [facility] Comment on above: Performed By: #### C BCDIF, BMP, MONOLX #### [facility] [address] [place], [place] [address] Wound Culture/Stainon 2020 Wound Culture/Stain Sp. Request/Comment: - Swab Smear Result - Rare Gram positive cocci --> ABNORMAL ALERT Rare Polymorphonuclear leukocytes Culture Result - Rare Mixed oral jori For wound culture, tissue or aspirates are superior to swab specimens. If a swab must be used, eSwab is preferred. Critically abnormal [facility] Comment on above: Performed By: #### W CUL #### [facility] [address] [place] [id number] Discharge Summaryon 06-28-20 Discharge Summary Send Summary:Dischar ge Summary Providers:Provider RoleProvider Name? ReferringRadha Unger? PrimaryBuMelida franco? AttendingJonas Mancuso Note Recipients: Melida Daniel MD - [id number] [[id number]]Radha Unger, Jonas Syed MD Discharge: Summary:Admission Date: .23-Jun-2018 01:12:00Discharge Date: [id number] Physician at Discharge: Jonas Mancusoission Reason: Atenolol and tylenol overdose(1)Final Discharge Diagnoses: Other Specified Depressive DisorderProcedures: noneCondition at Discharge: SatisfactoryDisposition at Discharge: .HomeVital Signs: T XVTVMfF3Rlplq70.57582673/86 Date/Time06/28 9:0806/28 9:0806/28 9:0806/28 9:08Range(36.6C - 36.6C [...] to Schedule in: 1x weekly - Location: [address] [place], [place] [address] Phone Number: phone: [phone] l fax: [phone] Follow-Up Appointment 02: Physician/Dept/Service: Griffin Lazcano Reason for Referral: Case Management Call to Schedule in: 1x weekly Location: [address] [place], [place] [address] Phone Number: phone: [phone] l fax: [phone] Discharge Medications: Home MedicationQvar 80 mcg/inh inhalation [...] Pending: NoneRadiology Results - Pending: None Signature/Cosignature/Attes tation:Oracle Analyst Only - Attest to Medical Student/Acting First Front Ventilator documentationAs atesymmes hospital institution, we recognize that medical students [...] Last Updated: 14-Jul-2018 10:37 by Leidy Nugent ([facility]) [facility] Clinical Event Note-Telephon dedrick 07-31-2018 Clinical Event Note-Telephone Event:Topic: TelephoneDetails:Called and talked to both parents (mom and dad). Updated information aboutpatient clinical status. Also told that that patient is experiencing nightmaresand sleep issues. Mom and dad was given information about the risk and benefitsof medication. In particular this policy writer talked about clonidine and guanfacineoption. Parent at this time denied adding any medication and said they wouldthink about it. Mom also reported that patient is prescribed gabapentin was for headache andshe said that medication has helped her a lot. Electronic Signatures:Maikol Wong ( (Resident)) (Signed 27-Jun-2018 16:13)Authored: Event Last Updated: 27-Jun-2018 16:13 by Maikol Wong ( (Resident)) [facility] Daily Progress Note - Child Psychiatryon [...] and benefits of medication. In particular this policy writer talkedabout clonidine and guanfacine option. Parent at this time denied adding anymedication and said they would think about it.Mom also reported that patient is prescribed gabapentin was for headache andshe said that medication has helped her a lot. Overnight Events: Patient had an uneventful night. Objective: Objective Information: T XRLBHqN2Pyjxd91.52828007/72 Date/Time06/27 17: 17: 17: 17:15Range(36.6C - 36.6C ) (53 - 57 ) (18 - 18 ) (112 - 112 )/ (72 - 72 ) Pain reported at 06/27 15:48: 7 ---- Intake and Output -----Mn/Dy/Year TimeIntakeOutputNetJul 2017 2:00 [id number] 2017 10:00 [id number] The Intake and Output Totals for the last 24 hours are:LlwxmsSjwanxSwf857nevqf ull---Intake---Enteral - Oral PO Fluid/Feed (oral): 840 [...] Omeprazole - PEDS: 20 mg Oral Daily 247143. Riboflavin - PEDS: 400 mg Oral Daily PRN Medications ----- 1. Acetaminophen - PEDS: 650 mg Oral Every 6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 signed by : Mere Simpson APRN-JIMMYS; Jun 05 2018 10:46AM EST (Author) [facility] Discharge Summaryon 08-24-20 Discharge Summary Send Summary:Dischar ge Summary Providers:Provider Role Provider Name? Referring Dali Mcintosh? Attending Adeola Colon? Primary Zac Daniel Recipients: Adeola Colon MD Baez-Socorro, Virginia M, MD Bumagina, Natalie, MD - [phone] [[id number]]Dali Mcintosh MD - [id number] [Preferred]Discharge:Summar y:Admission Date: .09-Aug-2017 21:44:00Discharge Date: 38-Mml-0433Nghzcsrmf Physician at Discharge: Adeola Colon NAdmission Reason: vomiting, hematemesisFinal Discharge Diagnoses: Functional abdominal painProcedures: null Aug 11, 2017Condition at Discharge: SatisfactoryDisposition at Discharge: .HomeVital Signs: T P R BP MhH7Bplre 36.6 70 18 126/84 98%Date/Time 08/24 8:58 [...] months, but worse recently. She was admitted [facility] last month for the vomiting. She also [...] Saturday September 02, 2017 at3:30 pm. Location: [place] [address] Vzgrch-Up Appointment 02: Physician/Dept/Service: Neurology: Caty Simpson Call to Schedule in: 1st available Scheduled Date/Time: 31-Aug-2017 14:00 Location: [address] [place] [address] Icrnmt-Up Appointment 03: Physician/Dept/Service: ENT (ear, nose, and [...] 24-Aug-2017 23:59 by Adeola Colon () [facility] PD ABDOMEN, SINGLE VIEWon PD ABDOMEN, [...] gastric body.Electronically signed by: PHYSICIAN CECILIA [facility] NR MRI BRAIN WOon 08-13-2017 NR [...] Chiari malformation. The study was interpreted at [facility].Electronicall y signed by: SABAS GARCIA MD [facility] Surgical Pathology Depar tmenton 08-11-2017 [facility] Surgical Pathology Department Name PILI PARIKH [...] submitted in toto in one cassette.MXWmxw/08/11/2017 [facility] Comment on above: Performed By: #### T 4FRE ####[facility] [place] [address] AMYLASEon 08-10-2017 Amylase enzyme act/vol 19 U/L Normal 18 - 76 [facility] Comment on above: Performed By: #### V TDOH ####[facility] [place] [address] C-REACTIVE PROTEINon 017 CRP mass conc 0.34 mg/dL [facility] Comment on above: Result Comment: REF VALUE< 1.00 Performed By: #### V TDOH ####[facility] [place] [address] CBC AND DIFFERENTIALon 08-10 % AUTOMATED IMMATURE GRAN 0.3 % Normal 0.0 - 1.0 [facility] Comment on above: Result Comment: Perc ent differential counts (%) should be interpreted in the context of the absolute cell counts (cells/L). Performed By: #### V TDOH ####[facility] [place] [address] % NEUTROPHIL 52.9 % Normal 33.0 - 69.0 [facility] Comment on above: Performed By: #### V TDOH ####[facility] [place] [address] Basophils/100 WBC Auto (Bld) 0.4 % Normal 0.0 - 1.0 [facility] Comment on above: Performed By: #### V TDOH ####[facility] [place] [address] Basophils/100 WBC Auto (Bld) 0.03 x10E9/L Normal 0.00 - 0.10 [facility] Comment on above: Performed By: #### V TDOH ####[facility] [place] [address] Eosinophils Auto #/vol (Bld) 0.29 10*3/uL Normal 0.00 - 0.70 [facility] Comment on above: Performed By: #### V TDOH ####[facility] [place] [address] Eosinophils/100 WBC Auto (Bld) 4.2 % Normal 0.0 - 5.0 [facility] Comment on above: Performed By: #### V TDOH ####[facility] [place] [address] Erythrocyte distribution width Auto Ratio (RBC) 14.1 % Normal 11.5 - 14.5 [facility] Comment on above: Performed By: #### V TDOH ####[facility] [place] [address] Hematocrit Auto Volume Fraction (Bld) 35.4 % Low 36.0 - 46.0 [facility] Comment on above: Performed By: #### V TDOH ####[facility] [place] [address] Hemoglobin mass conc (Bld) 11.0 g/dL Low 12.0 - 16.0 [facility] Comment on above: Performed By: #### V TDOH ####[facility] [place] [address] Lymphocytes Auto #/vol (Bld) 2.33 10*3/uL Normal 1.80 - 4.80 [facility] Comment on above: Performed By: #### V TDOH ####[facility] [place] [address] Lymphocytes/100 WBC Auto (Bld) 33.8 % Normal 28.0 - 48.0 [facility] Comment on above: Performed By: #### V TDOH ####[facility] [place] [address] MCHC Auto mass conc (RBC) 31.1 g/dL Normal 31.0 - 37.0 [facility] Comment on above: Performed By: #### V TDOH ####[facility] [place] [address] MCV Auto Entitic volume (RBC) 80 fL Normal 78 - 102 [facility] Comment on above: Performed By: #### V TDOH ####[facility] [place] [address] Monocytes Auto #/vol (Bld) 0.58 10*3/uL Normal 0.10 - 1.00 [facility] Comment on above: Performed By: #### V TDOH ####[facility] [place] [address] Monocytes/100 WBC Auto (Bld) 8.4 % Normal 3.0 - 9.0 [facility] Comment on above: Performed By: #### V TDOH ####[facility] [place] [address] Neutrophils Auto #/vol (Bld) 3.65 10*3/uL Normal 1.20 - 7.70 [facility] Comment on above: Performed By: #### V TDOH ####[facility] [place] [address] Nucleated RBC/100 WBC Ratio (Bld) 0.0 /100 WBC Normal 0.0-0.0 [facility] Comment on above: Performed By: #### V TDOH ####[facility] [place] [address] Platelets Auto #/vol (Bld) 256 10*3/uL Normal 150 - 400 [facility] Comment on above: Performed By: #### V TDOH ####[facility] [place] [address] RBC Auto #/vol (Bld) 4.40 x10E12/L Normal 4.10 - 5.20 [facility] Comment on above: Performed By: #### V TDOH ####[facility] [place] [address] WBC Auto #/vol (Bld) 6.9 10*3/uL Normal 4.5 - 13.5 [facility] Comment on above: Performed By: #### V TDOH ####[facility] [place] [address] CELIAC DISEASE SEROLOGY PANE Tushar 08-10-2017 GLIADIN ABS, IGA 0 Normal 0 - 14 [facility] Comment on above: Result Comment: Fals e negative Deamidated Gliadin Peptide Antibody, IgA results can occur in patients already adhering to a gluten-free diet or patients with IgA deficiency. Tissue Transglutaminase Antibody, IgA is the preferred test for screening patients with suspected Celiac Disease. Performed By: #### T 4FRE ####[facility] [place] [address] GLIADIN ABS, IGG <1 Normal 0 - 14 [facility] Comment on above: Result Comment: Fals e negative Deamidated Gliadin Peptide Antibody, IgG results can occur in patients already adhering to a gluten-free diet. Tissue Transglutaminase Antibody, IgA is the preferred test for screening patients with suspected Celiac Disease. Performed By: #### T 4FRE ####[facility] [place] [address] TTG AB,IGA <1 Normal 0 - 14 [facility] Comment on above: Result Comment: Loni ac disease is unlikely. False negative Tissue Transglutaminase Antibody, IgA results can occur in approximately 10% of patients with celiac disease, patients already adhering to a gluten-free diet, or patients with IgA deficiency. Performed By: #### T 4FRE ####[facility] [place] [address] TTG AB,IGG <1 Normal 0 - 14 [facility] Comment on above: Result Comment: Fals e negative Tissue Transglutaminase Antibody, IgG results can occur in patients already adhering to a gluten-free diet. Tissue Transglutaminase Antibody, IgA is the preferred test for screening patients with suspected Celiac Disease. Performed By: #### T 4FRE ####[place] [id number] [place] [address] COAGULATION SCREENon 017 aPTT Coag time (Bld) 28 s Normal 25 - 36 [facility] Comment on above: Result Comment: THE APTT IS NO LONGER USED FOR MONITORING UNFRACTIONATED HEPARIN THERAPY. FOR MONITORING HEPARIN THERAPY, USE THE HEPARIN ASSAY. Performed By: #### V TDOH ####[facility] [place] [address] INR Coag RelTime (PPP) 1.1 {INR} Normal 0.9 - 1.1 [facility] Comment on above: Performed By: #### V TDOH ####[facility] [place] [address] Prothrombin time (PT) Coag time (PPP) 12.1 s Normal 9.8 - 12.7 [facility] Comment on above: Performed By: #### V TDOH ####[facility] [place] [address] HEPATIC FUNCTION PANELon ALP enzyme act/vol 128 U/L Normal 52 - 239 [facility] Comment on above: Performed By: #### V TDOH ####[facility] [place] [address] ALT enzyme act/vol 39 U/L High 3 - 28 [facility] Comment on above: Result Comment: Christen ents treated with Sulfasalazine may generate falsely decreased results for ALT. Performed By: #### V TDOH ####[facility] [place] [address] AST enzyme act/vol 27 U/L High 9 - 24 [facility] Comment on above: Performed By: #### V TDOH ####[facility] [place] [address] Bilirubin mass conc 0.4 mg/dL Normal 0.0 - 0.9 [facility] Comment on above: Performed By: #### V TDOH ####[facility] [place] [address] Bilirubin.direct mass conc 0.1 mg/dL Normal 0.0 - 0.3 [facility] Comment on above: Performed By: #### V TDOH ####[facility] [place] [address] Protein mass conc 5.7 g/dL Low 6.2 - 7.7 [facility] Comment on above: Performed By: #### V TDOH ####[facility] [place] [address] LIPASEon 08-10-2017 Lipase enzyme act/vol 16 U/L Normal 9 - 82 [facility] Comment on above: Result Comment: Shanda puncture immediately after or during the administration of Metamizole may lead to falsely low results. Testing should be performed immediately prior to Metamizole dosing. Performed By: #### V TDOH ####[facility] [place] [address] RENAL FUNCTION PANELon 08-10 Albumin mass conc 3.8 g/dL Normal 3.4 - 5.0 [facility] Comment on above: Performed By: #### T 4FRE ####[facility] [place] [address] Performed By: #### V TDOH ####[facility] [place] [address] Anion gap 3 molar conc 13 mmol/L Normal 10 - 30 [facility] Comment on above: Performed By: #### T 4FRE ####[facility] [place] [address] Calcium mass conc 9.2 mg/dL Normal 8.5 - 10.7 [facility] Comment on above: Performed By: #### T 4FRE ####[facility] [place] [address] Chloride molar conc 106 mmol/L Normal 98 - 107 [facility] Comment on above: Performed By: #### T 4FRE ####[facility] [place] [address] Creatinine mass conc 0.56 mg/dL Normal 0.50 - 1.00 [facility] Comment on above: Performed By: #### T 4FRE ####[facility] [place] [address] Glucose mass conc 106 mg/dL High 74 - 99 [facility] Comment on above: Performed By: #### T 4FRE ####[facility] [place] [address] HCO3 molar conc (Bld) 26 mmol/L Normal 18 - 27 [facility] Comment on above: Performed By: #### T 4FRE ####[facility] [place] [address] Phosphate mass conc 4.3 mg/dL Normal 3.0 - 5.4 [facility] Comment on above: Result Comment: The performance characteristics of phosphorus testing in heparinized plasma have been validated by the individual laboratory site where testing is performed. Testing on heparinized plasma is not approved by the FDA; however, such approval is not necessary. Performed By: #### T 4FRE ####[facility] [place] [address] Potassium molar conc 3.9 mmol/L Normal 3.5 - 5.3 [facility] Comment on above: Performed By: #### T 4FRE ####[facility] [place] [address] Sodium molar conc 141 mmol/L Normal 136 - 145 [facility] Comment on above: Performed By: #### T 4FRE ####[facility] [place] [address] Urea nitrogen mass conc 11 mg/dL Normal 6 - 23 [facility] Comment on above: Performed By: #### T 4FRE ####[facility] [place] [address] AMYLASEon 08-09-2017 Amylase enzyme act/vol 22 U/L Normal 18 - 76 [facility] Comment on above: Performed By: #### A MY ####[facility] [place] [address] C-REACTIVE PROTEINon 017 CRP mass conc 0.36 mg/dL Normal [facility] Comment on above: Result Comment: REF VALUE< 1.00 Performed By: #### C RP ####[facility] [place] [address] CBC AND DIFFERENTIALon 08-09 % AUTOMATED IMMATURE GRAN 0.3 % Normal 0.0 - 1.0 [facility] Comment on above: Result Comment: Perc ent differential counts (%) should be interpreted in the context of the absolute cell counts (cells/L). Performed By: #### C BCDF ####[facility] [place] [address] % NEUTROPHIL 60.6 % Normal 33.0 - 69.0 [facility] Comment on above: Performed By: #### C BCDF ####[facility] [place] [address] Basophils/100 WBC Auto (Bld) 0.04 x10E9/L Normal 0.00 - 0.10 [facility] Comment on above: Performed By: #### C BCDF ####[facility] [place] [address] Basophils/100 WBC Auto (Bld) 0.5 % Normal 0.0 - 1.0 [facility] Comment on above: Performed By: #### C BCDF ####[facility] [place] [address] Eosinophils Auto #/vol (Bld) 0.28 10*3/uL Normal 0.00 - 0.70 [facility] Comment on above: Performed By: #### C BCDF ####[facility] [place] [address] Eosinophils/100 WBC Auto (Bld) 3.6 % Normal 0.0 - 5.0 [facility] Comment on above: Performed By: #### C BCDF ####[facility] [place] [address] Erythrocyte distribution width Auto Ratio (RBC) 14.4 % Normal 11.5 - 14.5 [facility] Comment on above: Performed By: #### C BCDF ####[facility] [place] [address] Hematocrit Auto Volume Fraction (Bld) 37.7 % Normal 36.0 - 46.0 [facility] Comment on above: Performed By: #### C BCDF ####[facility] [place] [address] Hemoglobin mass conc (Bld) 11.5 g/dL Low 12.0 - 16.0 [facility] Comment on above: Performed By: #### C BCDF ####[facility] [place] [address] Lymphocytes Auto #/vol (Bld) 2.20 10*3/uL Normal 1.80 - 4.80 [facility] Comment on above: Performed By: #### C BCDF ####[facility] [place] [address] Lymphocytes/100 WBC Auto (Bld) 28.2 % Normal 28.0 - 48.0 [facility] Comment on above: Performed By: #### C BCDF ####[facility] [place] [address] MCHC Auto mass conc (RBC) 30.5 g/dL Low 31.0 - 37.0 [facility] Comment on above: Performed By: #### C BCDF ####[facility] [place] [address] MCV Auto Entitic volume (RBC) 82 fL Normal 78 - 102 [facility] Comment on above: Performed By: #### C BCDF ####[facility] [place] [address] Monocytes Auto #/vol (Bld) 0.53 10*3/uL Normal 0.10 - 1.00 [facility] Comment on above: Performed By: #### C BCDF ####[facility] [place] [address] Monocytes/100 WBC Auto (Bld) 6.8 % Normal 3.0 - 9.0 [facility] Comment on above: Performed By: #### C BCDF ####[facility] [place] [address] Neutrophils Auto #/vol (Bld) 4.73 10*3/uL Normal 1.20 - 7.70 [facility] Comment on above: Performed By: #### C BCDF ####[facility] [place] [address] Nucleated RBC/100 WBC Ratio (Bld) 0.0 /100 WBC Normal 0.0-0.0 [facility] Comment on above: Performed By: #### C BCDF ####[facility] [place] [address] Platelets Auto #/vol (Bld) 290 10*3/uL Normal 150 - 400 [facility] Comment on above: Performed By: #### C BCDF ####[facility] [place] [address] RBC Auto #/vol (Bld) 4.62 x10E12/L Normal 4.10 - 5.20 [facility] Comment on above: Performed By: #### C BCDF ####[facility] [place] [address] WBC Auto #/vol (Bld) 7.8 10*3/uL Normal 4.5 - 13.5 [facility] Comment on above: Performed By: #### C BCDF ####[facility] [place] [address] COAGULATION SCREENon 017 aPTT Coag time (Bld) 29 s Normal 25 - 36 [facility] Comment on above: Result Comment: THE APTT IS NO LONGER USED FOR MONITORING UNFRACTIONATED HEPARIN THERAPY. FOR MONITORING HEPARIN THERAPY, USE THE HEPARIN ASSAY. Performed By: #### V TDOH ####[facility] [place] [address] INR Coag RelTime (PPP) 1.2 {INR} High 0.9 - 1.1 [facility] Comment on above: Performed By: #### V TDOH ####[place] [id number] [place] [address] Prothrombin time (PT) Coag time (PPP) 12.9 s High 9.8 - 12.7 [facility] Comment on above: Performed By: #### V TDOH ####[facility] [place] [address] ESR-WESTERGRENon 08-09-2017 ESR-WESTERGREN 8 mm/h Normal 0 - 13 [facility] Comment on above: Performed By: #### V TDOH ####[facility] [place] [address] GGTon 08-09-2017 GGT 20 U/L Normal 5 - 20 [facility] Comment on above: Performed By: #### G GT ####[facility] [place] [address] HEMOGLOBIN A1Con 08-09-2017 Hemoglobin A1c/Hemoglobin.total mass fraction (Bld) 5.6 % Normal [facility] Comment on above: Result Comment: Diag nosis of Diabetes-Adults Non-Diabetic: < or = 5.6% Increased risk for developing diabetes: 5.7-6.4% Diagnostic of diabetes: > or = 6.5%. Monitoring of Diabetes Age (y) Therapeutic Goal (%) Adults: >18 <7.0 Pediatrics: 13-18 <7.5 7-12 <8.0 0- 6 7.5-8.5 [employer]. Diabetes Care 33(S1), Nov 2009. Performed By: #### V TDOH ####[facility] [place] [address] HEPATIC FUNCTION PANELon ALP enzyme act/vol 133 U/L Normal 52 - 239 [facility] Comment on above: Performed By: #### H EPFP ####[facility] [place] [address] ALT enzyme act/vol 41 U/L High 3 - 28 [facility] Comment on above: Result Comment: Christen ents treated with Sulfasalazine may generate falsely decreased results for ALT. Performed By: #### H EPFP ####[facility] [place] [address] AST enzyme act/vol 25 U/L High 9 - 24 [facility] Comment on above: Performed By: #### H EPFP ####[facility] [place] [address] Bilirubin mass conc 0.3 mg/dL Normal 0.0 - 0.9 [facility] Comment on above: Performed By: #### H EPFP ####[facility] [place] [address] Bilirubin.direct mass conc 0.1 mg/dL Normal 0.0 - 0.3 [facility] Comment on above: Performed By: #### H EPFP ####[facility] [place] [address] Protein mass conc 6.7 g/dL Normal 6.2 - 7.7 [facility] Comment on above: Performed By: #### H EPFP ####[facility] [place] [address] IRON + TIBCon 08-09-2017 % SATURATION 13 % Low 25 - 45 [facility] Comment on above: Performed By: #### I RONT ####[facility] [place] [address] Iron mass conc 53 ug/dL Normal 23 - 138 [facility] Comment on above: Performed By: #### I RONT ####[facility] [place] [address] TIBC 407 ug/dL Normal 240 - 445 [facility] Comment on above: Performed By: #### I RONT ####[facility] [place] [address] LIPASEon 08-09-2017 Lipase enzyme act/vol 17 U/L Normal 9 - 82 [facility] Comment on above: Result Comment: Shanda puncture immediately after or during the administration of Metamizole may lead to falsely low results. Testing should be performed immediately prior to Metamizole dosing. Performed By: #### L IPAS ####[facility] [place] [address] RENAL FUNCTION PANELon 08-09 Albumin mass conc 4.3 g/dL Normal 3.4 - 5.0 [facility] Comment on above: Performed By: #### V TDOH ####[facility] [place] [address] Performed By: #### H EPFP ####[facility] [place] [address] Anion gap 3 molar conc 13 mmol/L Normal 10 - 30 [facility] Comment on above: Performed By: #### V TDOH ####[facility] [place] [address] Calcium mass conc 9.5 mg/dL Normal 8.5 - 10.7 [facility] Comment on above: Performed By: #### V TDOH ####[facility] [place] [address] Chloride molar conc 105 mmol/L Normal 98 - 107 [facility] Comment on above: Performed By: #### V TDOH ####[facility] [place] [address] Creatinine mass conc 0.50 mg/dL Normal 0.50 - 1.00 [facility] Comment on above: Performed By: #### V TDOH ####[facility] [place] [address] Glucose mass conc 83 mg/dL Normal 74 - 99 [facility] Comment on above: Performed By: #### V TDOH ####[facility] [place] [address] HCO3 molar conc (Bld) 27 mmol/L Normal 18 - 27 [facility] Comment on above: Performed By: #### V TDOH ####[facility] [place] [address] Phosphate mass conc 4.1 mg/dL Normal 3.0 - 5.4 [facility] Comment on above: Result Comment: The performance characteristics of phosphorus testing in heparinized plasma have been validated by the individual laboratory site where testing is performed. Testing on heparinized plasma is not approved by the FDA; however, such approval is not necessary. Performed By: #### V TDOH ####[facility] [place] [address] Potassium molar conc 4.1 mmol/L Normal 3.5 - 5.3 [facility] Comment on above: Performed By: #### V TDOH ####[facility] [place] [address] Sodium molar conc 141 mmol/L Normal 136 - 145 [facility] Comment on above: Performed By: #### V TDOH ####[facility] [place] [address] Urea nitrogen mass conc 11 mg/dL Normal 6 - 23 [facility] Comment on above: Performed By: #### V TDOH ####[facility] [place] [address] THYROXINE,FREEon 08-09-2017 THYROXINE,FREE 1.08 ng/dL Normal 0.78 - 1.48 [facility] Comment on above: Result Comment: Thyr oxine Free testing is performed using different testing methodology at [facility] than at other [facility]. Direct result comparisons should only be made within the same method.. Patients receiving more than 5 mg/day of biotin may have interference in test results. A sample should be taken no sooner than eight hours after previous dose. Contact [phone] for additional information. Performed By: #### T 4FRE ####[facility] [id number] TSHon 08-09-2017 Thyrotropin Qn 1.71 m[IU]/L Normal 0.44 - 3.98 [facility] Comment on above: Result Comment: TSH testing is performed using different testing methodology at [facility] than at other [facility]. Direct result comparisons should only be made within the same method.. Patients receiving more than 5 mg/day of biotin may have interference in test results. A sample should be taken no sooner than eight hours after previous dose. Contact [phone] for additional information. Performed By: #### T SH2 ####[facility] [place] [address] VITAMIN D, 25-HYDROXYon 07-29 VITAMIN D, 25-HYDROXY 28 ng/mL Abnormal [facility] Comment on above: Result Comment: .DEF ICIENCY: < 20 NG/MLINSUFFICIENCY: 20-29 NG/MLOPTIMUM LEVEL: 30-80 NG/MLPOSSIBLE TOXICITY: > 80 NG/MLTHIS ASSAY ACCURATELY QUANTIFIES THE SUM OFVITAMIN D3, 25-HYDROXY AND VIT D2,25-HYDROXY. Performed By: #### V TDOH ####[facility] [place] [address] Vital Signs Date Time Vital Sign Value Performing Clinician Facility 01-16-2025 20:30-0500 [facility] 51 /[facility] 01-16-2025 20:30-0500 Respiratory rate 12 /min [facility] 01-16-2025 20:30-0500 SaO2% (BldA) [Mass fraction] 98 % [facility] 01-16-2025 19:30-0500 Diastolic blood pressure 105 mm[Hg] [facility] 01-16-2025 19:30-0500 Heart rate 48 /min [facility] 01-16-2025 19:30-0500 Mean blood pressure 115 mm[Hg] [facility] 01-16-2025 19:30-0500 Respiratory rate 13 /min [facility] 01-16-2025 19:30-0500 SaO2% (BldA) [Mass fraction] 98 % [facility] 01-16-2025 19:30-0500 Systolic blood pressure 135 mm[Hg] [facility] 01-16-2025 17:53-0500 Body temperature 99.14 [degF] [facility] 01-16-2025 17:53-0500 Diastolic blood pressure 71 mm[Hg] [facility] 01-16-2025 17:53-0500 Heart rate 64 /min [facility] 01-16-2025 17:53-0500 Respiratory rate 20 /min [facility] 01-16-2025 17:53-0500 SaO2% (BldA) [Mass fraction] 100 % [facility] 01-16-2025 17:53-0500 Systolic blood pressure 129 mm[Hg] [facility] 10-29-2024 00:01-0500 Diastolic blood pressure 94 mm[Hg] [facility] Work Phone[facility] 10-29-2024 00:01-0500 Heart rate 72 /min [facility] Work Phone: [facility] 10-29-2024 00:01-0500 Respiratory rate 16 /min [facility] Work Phone: [facility] 10-29-2024 00:01-0500 SaO2% (BldA) [Mass fraction] 99 % [facility] Work Phone: [facility] 10-29-2024 00:01-0500 Systolic blood pressure 156 mm[Hg] [facility] Work Phone: [facility] 10-28-2024 18:07-0500 Body height 157.48 cm [facility] Work Phone: [facility] 10-28-2024 18:07-0500 Body temperature 98.6 [degF] [facility] Work Phone: [facility] 10-28-2024 18:07-0500 Body weight 92.85 kg [facility] Work Phone: [facility] 08-03-2024 23:10-0400 Diastolic blood pressure 68 mm[Hg] [facility] Work Phone: [facility] 08-03-2024 23:10-0400 Heart rate 95 /min [facility] Work Phone: [facility] 08-03-2024 23:10-0400 Respiratory rate 18 /min [facility] Work Phone: [facility] 08-03-2024 23:10-0400 SaO2% (BldA) [Mass fraction] 99 % [facility] Work Phone: [facility] 08-03-2024 23:10-0400 Systolic blood pressure 115 mm[Hg] [facility] Work Phone: [facility] 08-03-2024 20:35-0400 Body height 157.48 cm [facility] Work Phone: [facility] 08-03-2024 20:35-0400 Body temperature 99.1 [degF] [facility] Work Phone: [facility] 08-03-2024 20:35-0400 Body weight 90.[address] [facility] Work Phone: [facility] 07-30-2024 22:55-0400 Diastolic blood pressure 72 mm[Hg] Cresencio Colten [facility] 07-30-2024 22:55-0400 Heart rate 50 /min Cresencio Colten [facility] 07-30-2024 22:55-0400 Mean blood pressure 83 mm[Hg] Cresencio Colten [facility] 07-30-2024 22:55-0400 Respiratory rate 16 /min Cresencio Colten [facility] 07-30-2024 22:55-0400 SaO2% (BldA) [Mass fraction] 98 % Cresencio Colten [facility] 07-30-2024 22:55-0400 Systolic blood pressure 104 mm[Hg] Cresencio Colten [facility] 07-30-2024 19:28-0400 Body temperature 98.06 [degF] Cresencio Colten [facility] 07-30-2024 19:28-0400 Diastolic blood pressure 76 mm[Hg] Cresencio Colten [facility] 07-30-2024 19:28-0400 Heart rate 55 /min Cresencio Colten [facility] 07-30-2024 19:28-0400 Respiratory rate 16 /min Cresencio Colten [facility] 07-30-2024 19:28-0400 SaO2% (BldA) [Mass fraction] 97 % Cresencio Colten [facility] 07-30-2024 19:28-0400 Systolic blood pressure 118 mm[Hg] Cresencio Colten [facility] 03-19-2024 00:10-0400 Diastolic blood pressure 90 mm[Hg] [facility] Work Phone: [facility] 03-19-2024 00:10-0400 Heart rate 110 /min [facility] Work Phone: [facility] 03-19-2024 00:10-0400 Respiratory rate 18 /min [facility] Work Phone: [facility] 03-19-2024 00:10-0400 SaO2% (BldA) [Mass fraction] 100 % [facility] [employer] Work Phone: [facility] 03-19-2024 00:10-0400 Systolic blood pressure 144 mm[Hg] [facility] [employer] Work Phone: [facility] 03-18-2024 22:03-0400 Body height 160.02 cm [facility] [employer] Work Phone: [facility] 03-18-2024 22:03-0400 Body temperature 98.3 [degF] Services [facility] [employer] Work Phone: [facility] 03-18-2024 22:03-0400 Body weight 92.2 kg [facility] [employer] Work Phone: [facility] 03-15-2024 13:43-0400 Diastolic blood pressure 89 mm[Hg] [facility] 03-15-2024 13:43-0400 Heart rate 51 /min [facility] 03-15-2024 13:43-0400 Mean blood pressure 107 mm[Hg] [facility] 03-15-2024 13:43-0400 Respiratory rate 16 /min [facility] 03-15-2024 13:43-0400 SaO2% (BldA) [Mass fraction] 100 % [facility] 03-15-2024 13:43-0400 Systolic blood pressure 144 mm[Hg] [facility] 03-15-2024 12:01-0400 Diastolic blood pressure 87 mm[Hg] [facility] 03-15-2024 12:01-0400 Heart rate 52 /min [facility] 03-15-2024 12:01-0400 Mean blood pressure 107 mm[Hg] [facility] 03-15-2024 12:01-0400 SaO2% (BldA) [Mass fraction] 100 % [facility] 03-15-2024 12:01-0400 Systolic blood pressure 148 mm[Hg] [facility] 03-15-2024 10:35-0400 Body temperature 97.52 [degF] [facility] 03-15-2024 10:35-0400 Diastolic blood pressure 86 mm[Hg] [facility] 03-15-2024 10:35-0400 Heart rate 60 /min [facility] 03-15-2024 10:35-0400 Respiratory rate 18 /min [facility] 03-15-2024 10:35-0400 SaO2% (BldA) [Mass fraction] 98 % [facility] 03-15-2024 10:35-0400 Systolic blood pressure 143 mm[Hg] [facility] 03-13-2024 22:00-0400 Diastolic blood pressure 105 mm[Hg] Femi Roman [facility] 03-13-2024 22:00-0400 Heart rate 53 /min Femi Roman [facility] 03-13-2024 22:00-0400 Mean blood pressure 117 mm[Hg] Femi Roman [facility] 03-13-2024 22:00-0400 SaO2% (BldA) [Mass fraction] 100 % Femi Roman [facility] 03-13-2024 22:00-0400 Systolic blood pressure 140 mm[Hg] Femi Jessie [facility] 03-13-2024 21:00-0400 Diastolic blood pressure 106 mm[Hg] Femi Jessie [facility] 03-13-2024 21:00-0400 Heart rate 93 /min Femi Jessie [facility] 03-13-2024 21:00-0400 Mean blood pressure 119 mm[Hg] Femi Jessie [facility] 03-13-2024 21:00-0400 Respiratory rate 21 /min Femi Jessie [facility] 03-13-2024 21:00-0400 SaO2% (BldA) [Mass fraction] 98 % Femi Jessie [facility] 03-13-2024 21:00-0400 Systolic blood pressure 144 mm[Hg] Femi Jessie [facility] 03-13-2024 20:00-0400 Diastolic blood pressure 103 mm[Hg] Femi Jessie [facility] 03-13-2024 20:00-0400 Heart rate 50 /min Femi Jessie [facility] 03-13-2024 20:00-0400 Mean blood pressure 120 mm[Hg] Femi Jessie [facility] 03-13-2024 20:00-0400 Systolic blood pressure 153 mm[Hg] Femi Jessie [facility] 03-13-2024 19:38-0400 Respiratory rate 14 /min Femi Jessie [facility] 03-13-2024 18:36-0400 Respiratory rate 18 /min Femi Jessie [facility] 03-13-2024 17:51-0400 Body temperature 98.24 [degF] Femi Roman [facility] 03-13-2024 17:36-0400 Body temperature 98.24 [degF] Femi Roman [facility] 03-13-2024 17:36-0400 Heart rate 61 /min Femi Roman [facility] 03-13-2024 17:36-0400 Respiratory rate 18 /min Femi Roman [facility] 07-31-2023 18:09-0400 Body height 157.48 cm [facility] Work Phone: [facility] 07-31-2023 18:09-0400 Body temperature 98.6 [degF] [facility] Work Phone: [facility] 07-31-2023 18:09-0400 Body weight 84 kg [facility] Work Phone: [facility] 07-31-2023 18:09-0400 Diastolic blood pressure 106 mm[Hg] [facility] Work Phone: [facility] 07-31-2023 18:09-0400 Heart rate 87 /min [facility] Work Phone: [facility] 07-31-2023 18:09-0400 Respiratory rate 18 /min [facility] Work Phone: [facility] 07-31-2023 18:09-0400 SaO2% (BldA) [Mass fraction] 98 % [facility] Work Phone: [facility] 07-31-2023 18:09-0400 Systolic blood pressure 150 mm[Hg] [facility] Work Phone: [facility] 05-25-2023 13:11-0400 Diastolic blood pressure 96 mm[Hg] [facility] Work Phone: [facility] 05-25-2023 13:11-0400 Heart rate 60 /min Services [employer] Work Phone: [facility] 05-25-2023 13:11-0400 Respiratory rate 16 /min Services [facility] [employer] Work Phone: [facility] 05-25-2023 13:11-0400 SaO2% (BldA) [Mass fraction] 97 % Services [employer] Work Phone: [facility] 05-25-2023 13:11-0400 Systolic blood pressure 160 mm[Hg] Services [facility] [employer] Work Phone: [facility] 05-25-2023 11:56-0400 Inhaled oxygen flow rate 6 L/min Services [employer] Work Phone: [facility] 05-25-2023 11:54-0400 Body temperature 97.2 [degF] Services [employer] Work Phone: [facility] 05-25-2023 09:39-0400 Body height 160.02 cm Services [facility] [employer] Work Phone: [facility] 05-25-2023 09:39-0400 Body mass index (BMI) [Percentile] Per age and sex 96.6 % Services [employer] Work Phone: [facility] 05-25-2023 09:39-0400 Body mass index (BMI) [Ratio] 33.6 kg/m2 Services [employer] Work Phone: [facility] 05-25-2023 09:39-0400 Body weight 86.18 kg Services [employer] Work Phone: [facility] 05-23-2023 08:00-0400 Body height 157.48 cm Colten Miller Other [employer] Other 05-23-2023 08:00-0400 Body mass index (BMI) [Ratio] 34.75 kg/m2 Colten Miller Other [employer] Other 05-23-2023 08:00-0400 Body weight 86.18 kg Colten Miller Other [facility] [employer] Other 01-07-2023 14:08-0500 Body height 157.48 cm Services [facility] [employer] Work Phone: [facility] 01-07-2023 12:34-0500 Body temperature 98.1 [degF] Services [facility] [employer] Senior Work Phone: [facility] 01-07-2023 12:34-0500 Diastolic blood pressure 86 mm[Hg] Services [facility] [employer] Work Phone: [facility] 01-07-2023 12:34-0500 Heart rate 75 /min Services [facility] [employer] Work Phone: [facility] 01-07-2023 12:34-0500 SaO2% (BldA) [Mass fraction] 100 % Services [facility] [employer] Senior Work Phone: [facility] 01-07-2023 12:34-0500 Systolic blood pressure 147 mm[Hg] Services [facility] [employer] Work Phone: [facility] 01-07-2023 11:57-0500 Respiratory rate 18 /min Services [facility] [employer] Work Phone: [facility] 01-07-2023 06:00-0500 Body weight 78.2 kg Services [facility] [employer] Senior Work Phone: [facility] 01-06-2023 18:29-0500 Diastolic blood pressure 82 mm[Hg] Services [facility] Senior Work Phone: [facility] 01-06-2023 18:29-0500 Heart rate 64 /min Services [facility] [employer] Work Phone: [facility] 01-06-2023 18:29-0500 Respiratory rate 16 /min Services [facility] Senior Work Phone: [facility] 01-06-2023 18:29-0500 SaO2% (BldA) [Mass fraction] 98 % Services [facility] Senior Work Phone: [facility] 01-06-2023 18:29-0500 Systolic blood pressure 139 mm[Hg] [facility] Work Phone: [facility] 01-06-2023 11:12-0500 Body height 157.48 cm Services [facility] Work Phone: [facility] 01-06-2023 11:12-0500 Body temperature 98 [degF] Services [facility] Work Phone: [facility] 01-06-2023 11:12-0500 Body weight 77.[address] [facility] Senior Work Phone: [facility] 01-02-2023 04:00-0500 Heart rate 62 /min Services [facility] Senior Work Phone: [facility] 01-02-2023 04:00-0500 Respiratory rate 18 /min Services [facility] Senior Work Phone: [facility] 01-02-2023 04:00-0500 SaO2% (BldA) [Mass fraction] 100 % Services [facility] Senior Work Phone: [facility] 01-02-2023 02:37-0500 Diastolic blood pressure 85 mm[Hg] Services [facility] Senior Work Phone: [facility] 01-02-2023 02:37-0500 Systolic blood pressure 155 mm[Hg] Services [facility] Work Phone: [facility] 01-02-2023 01:14-0500 Body height 157.[address] [facility] Senior Work Phone: [facility] 01-02-2023 01:14-0500 Body temperature 98 [degF] Services [facility] Senior Work Phone: [facility] 01-02-2023 01:14-0500 Body weight 77.[address] [facility] Senior Work Phone: [facility] 12-31-2022 12:11-0500 Heart rate 70 /min Services [facility] Senior Work Phone: [facility] 12-31-2022 12:08-0500 Body height 157.48 cm [facility] Work Phone: [facility] 12-31-2022 12:08-0500 Body temperature 97.7 [degF] Services [facility] Senior Work Phone: [facility] 12-31-2022 12:08-0500 Body weight 79 kg Services [facility] [employer] Senior Work Phone: [facility] 12-31-2022 12:08-0500 Diastolic blood pressure 87 mm[Hg] Services [facility] [employer] Senior Work Phone: [facility] 12-31-2022 12:08-0500 Respiratory rate 18 /min Services [facility] Senior Work Phone: [facility] 12-31-2022 12:08-0500 SaO2% (BldA) [Mass fraction] 99 % Services [facility] [employer] Senior Work Phone: [facility] 12-31-2022 12:08-0500 Systolic blood pressure 134 mm[Hg] Services [facility] Senior Work Phone: [facility] 11-09-2022 15:15-0500 Body height 157.[address] [facility] Senior Work Phone: [facility] 11-09-2022 15:15-0500 Body temperature 98.4 [degF] Services [facility] Senior Work Phone: [facility] 11-09-2022 15:15-0500 Body weight 81.[address] [facility] Senior Work Phone: [facility] 11-09-2022 15:15-0500 Diastolic blood pressure 90 mm[Hg] Services [facility] Senior Work Phone: [facility] 11-09-2022 15:15-0500 Heart rate 95 /min Services [facility] [employer] Senior Work Phone: [facility] 11-09-2022 15:15-0500 Respiratory rate 16 /min [facility] Work Phone: [facility] 11-09-2022 15:15-0500 SaO2% (BldA) [Mass fraction] 100 % [facility] Work Phone: [facility] 11-09-2022 15:15-0500 Systolic blood pressure 140 mm[Hg] [facility] Work Phone: [facility] 11-07-2022 13:40-0500 Diastolic blood pressure 85 mm[Hg] [facility] Work Phone: [facility] 11-07-2022 13:40-0500 Heart rate 68 /min [facility] Work Phone: [facility] 11-07-2022 13:40-0500 Respiratory rate 16 /min [facility] Work Phone: [facility] 11-07-2022 13:40-0500 SaO2% (BldA) [Mass fraction] 100 % [facility] Work Phone: [facility] 11-07-2022 13:40-0500 Systolic blood pressure 119 mm[Hg] [facility] Work Phone: [facility] 11-07-2022 11:05-0500 Body temperature 98.2 [degF] [facility] Work Phone: [facility] 11-07-2022 11:04-0500 Body height 158.75 cm [facility] Work Phone: [facility] 11-07-2022 11:04-0500 Body weight 77 kg [facility] Work Phone: [facility] 11-02-2022 09:53-0500 Diastolic blood pressure 89 mm[Hg] [facility] Work Phone: [facility] 11-02-2022 09:53-0500 Heart rate 50 /min [facility] Work Phone: [facility] 11-02-2022 09:53-0500 Respiratory rate 18 /min Services [facility] Senior Work Phone: [facility] 11-02-2022 09:53-0500 SaO2% (BldA) [Mass fraction] 98 % Services [facility] Senior Work Phone: [facility] 11-02-2022 09:53-0500 Systolic blood pressure 156 mm[Hg] [facility] Work Phone: [facility] 11-02-2022 03:00-0500 Body height 157.[address] [facility] Senior Work Phone: [facility] 11-02-2022 03:00-0500 Body temperature 98.4 [degF] Services [facility] Senior Work Phone: [facility] 11-02-2022 03:00-0500 Body weight 78 kg Services [facility] Work Phone: [facility] 10-31-2022 10:05-0500 Diastolic blood pressure 85 mm[Hg] Services [facility] Work Phone: [facility] 10-31-2022 10:05-0500 Heart rate 59 /min Services [facility] Senior Work Phone: [facility] 10-31-2022 10:05-0500 Respiratory rate 18 /min Services [facility] Senior Work Phone: [facility] 10-31-2022 10:05-0500 SaO2% (BldA) [Mass fraction] 98 % Services [facility] Work Phone: [facility] 10-31-2022 10:05-0500 Systolic blood pressure 137 mm[Hg] Services [facility] Work Phone: [facility] 10-31-2022 08:50-0500 Body height 157.[address] [facility] Senior Work Phone: [facility] 10-31-2022 08:50-0500 Body temperature 98.2 [degF] Services [facility] Senior Work Phone: [facility] 10-31-2022 08:50-0500 Body weight 83.91 kg [facility] Work Phone: [facility] 10-29-2022 12:01-0500 Body height 157.48 cm Services [facility] Work Phone: [facility] 10-29-2022 12:01-0500 Body temperature 97.8 [degF] Services [facility] Work Phone: [facility] 10-29-2022 12:01-0500 Body weight 81 kg Services [facility] Work Phone: [facility] 10-29-2022 12:01-0500 Diastolic blood pressure 84 mm[Hg] Services [facility] Work Phone: [facility] 10-29-2022 12:01-0500 Heart rate 60 /min Services [facility] Work Phone: [facility] 10-29-2022 12:01-0500 Respiratory rate 18 /min Services [facility] Senior Work Phone: [facility] 10-29-2022 12:01-0500 SaO2% (BldA) [Mass fraction] 99 % Services [facility] Work Phone: [facility] 10-29-2022 12:01-0500 Systolic blood pressure 109 mm[Hg] Services [facility] Work Phone: [facility] 08-22-2022 12:00-0400 Body temperature 98 [degF] [facility] Work Phone: [facility] 08-22-2022 12:00-0400 Diastolic blood pressure 78 mm[Hg] [facility] Work Phone: [facility] 08-22-2022 12:00-0400 Heart rate 80 /min [facility] Work Phone: [facility] 08-22-2022 12:00-0400 Respiratory rate 18 /min [facility] Work Phone: [facility] 08-22-2022 12:00-0400 SaO2% (BldA) [Mass fraction] 95 % [facility] Work Phone: [facility] 08-22-2022 12:00-0400 Systolic blood pressure 121 mm[Hg] [facility] Work Phone: [facility] 08-22-2022 05:50-0400 Body weight 77.5 kg [facility] Work Phone: [facility] 08-21-2022 11:27-0400 Body height 157.48 cm [facility] Work Phone: [facility] 08-20-2022 16:34-0400 Diastolic blood pressure 90 mm[Hg] [facility] Work Phone: [facility] 08-20-2022 16:34-0400 Heart rate 68 /min [facility] Work Phone: [facility] 08-20-2022 16:34-0400 Respiratory rate 20 /min [facility] Work Phone: [facility] 08-20-2022 16:34-0400 SaO2% (BldA) [Mass fraction] 96 % [facility] Work Phone: [facility] 08-20-2022 16:34-0400 Systolic blood pressure 142 mm[Hg] [facility] Work Phone: [facility] 08-20-2022 11:58-0400 Body height 157.48 cm [facility] Work Phone: [facility] 08-20-2022 11:58-0400 Body temperature 97.9 [degF] [facility] Work Phone: [facility] 08-20-2022 11:58-0400 Body weight 79.37 kg [facility] Work Phone: [facility] 08-20-2022 01:00-0400 Body temperature 97.9 [degF] [facility] Work Phone: [facility] 08-20-2022 01:00-0400 Diastolic blood pressure 72 mm[Hg] [facility] Work Phone: [facility] 08-20-2022 01:00-0400 Heart rate 53 /min [facility] Work Phone: [facility] 08-20-2022 01:00-0400 Respiratory rate 16 /min [facility] Work Phone: [facility] 08-20-2022 01:00-0400 SaO2% (BldA) [Mass fraction] 97 % [facility] Work Phone: [facility] 08-20-2022 01:00-0400 Systolic blood pressure 131 mm[Hg] [facility] Work Phone: [facility] 08-19-2022 18:57-0400 Body height 157.48 cm [facility] Work Phone: [facility] 08-19-2022 18:57-0400 Body weight 79.37 kg [facility] Work Phone: [facility] 08-19-2022 14:00-0400 Diastolic blood pressure 79 mm[Hg] [facility] Work Phone: [facility] 08-19-2022 14:00-0400 Heart rate 67 /min [facility] Work Phone: [facility] 08-19-2022 14:00-0400 Respiratory rate 20 /min [facility] Work Phone: [facility] 08-19-2022 14:00-0400 SaO2% (BldA) [Mass fraction] 99 % [facility] Work Phone: [facility] 08-19-2022 14:00-0400 Systolic blood pressure 139 mm[Hg] [facility] Work Phone: [facility] 08-19-2022 00:40-0400 Body height 157.48 cm [facility] Work Phone: [facility] 08-19-2022 00:40-0400 Body temperature 98.8 [degF] [facility] Work Phone: [facility] 08-19-2022 00:40-0400 Body weight 77.11 kg [facility] Work Phone: [facility] 08-18-2022 15:28-0400 Body temperature 97.8 [degF] [facility] Work Phone: [facility] 08-18-2022 15:28-0400 Diastolic blood pressure 90 mm[Hg] [facility] Work Phone: [facility] 08-18-2022 15:28-0400 Heart rate 54 /min [facility] Work Phone: [facility] 08-18-2022 15:28-0400 Respiratory rate 20 /min [facility] Work Phone: [facility] 08-18-2022 15:28-0400 SaO2% (BldA) [Mass fraction] 100 % [facility] Work Phone: [facility] 08-18-2022 15:28-0400 Systolic blood pressure 135 mm[Hg] [facility] Work Phone: [facility] 08-18-2022 12:26-0400 Body height 157.48 cm [facility] Work Phone: [facility] 08-18-2022 12:26-0400 Body weight 77.11 kg [facility] Work Phone: [facility] 06-09-2022 10:25-0400 Diastolic blood pressure 51 mm[Hg] [facility] Work Phone: [facility] 06-09-2022 10:25-0400 Heart rate 83 /min [facility] Work Phone: [facility] 06-09-2022 10:25-0400 Respiratory rate 20 /min [facility] Work Phone: [facility] 06-09-2022 10:25-0400 SaO2% (BldA) [Mass fraction] 98 % Services [employer] Work Phone: [facility] 06-09-2022 10:25-0400 Systolic blood pressure 92 mm[Hg] [facility] Work Phone: [facility] 06-09-2022 08:46-0400 Body height 157.48 cm Services [employer] [facility] Work Phone: [facility] 06-09-2022 08:46-0400 Body mass index (BMI) [Percentile] Per age and sex 96.2 % Services [employer] Work Phone: [facility] 06-09-2022 08:46-0400 Body mass index (BMI) [Ratio] 32 kg/m2 Services [employer] Work Phone: [facility] 06-09-2022 08:46-0400 Body temperature 97.4 [degF] Services [facility] [employer] Work Phone: [facility] 06-09-2022 08:46-0400 Body weight 79.37 kg Services [employer] Work Phone: [facility] 05-16-2022 13:52-0400 Diastolic blood pressure 96 mm[Hg] Services [employer] Work Phone: [facility] 05-16-2022 13:52-0400 Heart rate 66 /min Services [employer] Work Phone: [facility] 05-16-2022 13:52-0400 Respiratory rate 18 /min Services [employer] Work Phone: [facility] 05-16-2022 13:52-0400 SaO2% (BldA) [Mass fraction] 100 % Services [employer] Work Phone: [facility] 05-16-2022 13:52-0400 Systolic blood pressure 138 mm[Hg] [facility] Work Phone: [facility] 05-16-2022 11:54-0400 Body height 157.48 cm Services [employer] Work Phone: [facility] 05-16-2022 11:54-0400 Body mass index (BMI) [Percentile] Per age and sex 95.5 % Services [employer] Work Phone: [facility] 05-16-2022 11:54-0400 Body mass index (BMI) [Ratio] 31.1 kg/m2 Services [employer] Work Phone: [facility] 05-16-2022 11:54-0400 Body temperature 98.4 [degF] Services [employer] Work Phone: [facility] 05-16-2022 11:54-0400 Body weight 77.11 kg Services [employer] Work Phone: [facility] 05-15-2022 15:30-0400 Diastolic blood pressure 82 mm[Hg] Services [employer] Work Phone: [facility] 05-15-2022 15:30-0400 Heart rate 52 /min Services [employer] Work Phone: [facility] 05-15-2022 15:30-0400 Respiratory rate 14 /min Services [facility] [employer] Work Phone: [facility] 05-15-2022 15:30-0400 SaO2% (BldA) [Mass fraction] 99 % Services [employer] Work Phone: [facility] 05-15-2022 15:30-0400 Systolic blood pressure 134 mm[Hg] Services [employer] Work Phone: [facility] 05-15-2022 12:28-0400 Body height 157.48 cm Services [employer] Work Phone: [facility] 05-15-2022 12:28-0400 Body mass index (BMI) [Percentile] Per age and sex 95.5 % Services [employer] Work Phone: [facility] 05-15-2022 12:28-0400 Body mass index (BMI) [Ratio] 31 kg/m2 [facility] Work Phone: [facility] 05-15-2022 12:28-0400 Body temperature 98.1 [degF] [facility] Work Phone: [facility] 05-15-2022 12:28-0400 Body weight 77 kg Services [employer] [facility] Work Phone: [facility] 05-14-2022 22:56-0400 Body temperature 98.1 [degF] [facility] Work Phone: [facility] 05-14-2022 22:56-0400 Diastolic blood pressure 74 mm[Hg] Services [employer] Work Phone: [facility] 05-14-2022 22:56-0400 Heart rate 18 /min Services [employer] [facility] Work Phone: [facility] 05-14-2022 22:56-0400 Respiratory rate 18 /min Services [employer] [facility] Work Phone: [facility] 05-14-2022 22:56-0400 SaO2% (BldA) [Mass fraction] 94 % Services [employer] Work Phone: [facility] 05-14-2022 22:56-0400 Systolic blood pressure 137 mm[Hg] Services [employer] Work Phone: [facility] 05-14-2022 02:18-0400 Body height 157.48 cm Services [employer] [facility] Work Phone: [facility] 05-14-2022 02:18-0400 Body mass index (BMI) [Percentile] Per age and sex 95.5 % Services [employer] Work Phone: [facility] 05-14-2022 02:18-0400 Body mass index (BMI) [Ratio] 31.1 kg/m2 Services [employer] Work Phone: [facility] 05-14-2022 02:18-0400 Body temperature 97.9 [degF] [facility] Work Phone: [facility] 05-14-2022 02:18-0400 Body weight 77.11 kg [facility] Work Phone: [facility] 05-14-2022 02:18-0400 Diastolic blood pressure 65 mm[Hg] [facility] Work Phone: [facility] 05-14-2022 02:18-0400 Heart rate 54 /min [facility] Work Phone: [facility] 05-14-2022 02:18-0400 Respiratory rate 18 /min Services [employer] [facility] Work Phone: [facility] 05-14-2022 02:18-0400 SaO2% (BldA) [Mass fraction] 98 % Services [employer] Work Phone: [facility] 05-14-2022 02:18-0400 Systolic blood pressure 133 mm[Hg] Services [employer] [facility] Work Phone: [facility] 05-13-2022 12:09-0400 Heart rate 72 /min Services [employer] [facility] Work Phone: [facility] 05-13-2022 12:09-0400 Respiratory rate 18 /min Services [employer] Work Phone: [facility] 05-13-2022 12:09-0400 SaO2% (BldA) [Mass fraction] 98 % Services [employer] [facility] Work Phone: [facility] 05-13-2022 10:32-0400 Body height 156.21 cm Services [employer] [facility] Work Phone: [facility] 05-13-2022 10:32-0400 Body mass index (BMI) [Percentile] Per age and sex 95.9 % Services [employer] Work Phone: [facility] 05-13-2022 10:32-0400 Body mass index (BMI) [Ratio] 31.6 kg/m2 Services [employer] Work Phone: [facility] 05-13-2022 10:32-0400 Body temperature 98.1 [degF] Services [facility] Work Phone: [facility] 05-13-2022 10:32-0400 Body weight 77.[address] [facility] Work Phone: [facility] 05-13-2022 10:32-0400 Diastolic blood pressure 87 mm[Hg] Services [facility] Work Phone: [facility] 05-13-2022 10:32-0400 Systolic blood pressure 145 mm[Hg] Services [facility] Work Phone: [facility] Encounters Encounter Date Encounter Type Care Provider Facility Start: 05-06-2025 End: 05-06-2025 ambulatory Drew Steinberg [facility] Work Phone: Start: 05-06-2025 End: 05-06-2025 Departed Referred Jasmeet Dahl MD Work Phone: [facility] Start: 05-04-2025 End: 05-04-2025 ambulatory Jasmeet Dahl [facility] Work Phone: Start: 05-04-2025 End: 05-04-2025 Departed Referred Jasmeet Dahl MD Work Phone: [facility] Start: 01-23-2025 End: 01-23-2025 ambulatory [facility] [facility] Work Phone: Start: 01-23-2025 End: 01-23-2025 Departed Referred Services [facility] Work Phone: [facility] Ctr-LAB Path [facility] Start: 01-16-2025 End: 01-16-2025 Emergency department patient visit August Bermudez [facility] Start: 10-28-2024 End: 10-29-2024 Emergency department patient visit Services [facility] Work Phone: [facility] Ctr-Emergency Room Work Phone: Start: 10-28-2024 Non-patient / Non-visit Servic es Family [facility] Work Phone: [facility] Physician [facility] ER Work Phone: Start: 08-03-2024 End: 08-04-2024 Emergency department patient visit Services [facility] Work Phone: [facility]-Emergency Room Work Phone: Start: 08-01-2024 End: 08-01-2024 Emergency department patient visit MODESTA ARCHIBALD Facility[facility] Start: 07-30-2024 End: 07-30-2024 Emergency department patient visit Cresencio Abel Facility:[facility] Start: 03-18-2024 End: 03-19-2024 Emergency department patient visit Services [facility] Work Phone: [facility]-Emergency Room Work Phone: Start: 03-15-2024 End: 03-15-2024 Emergency department patient visit Beliaaries Carbone Ebony [facility] Start: 03-13-2024 End: 03-13-2024 Emergency department patient visit Femi Roman [facility] Start: 07-31-2023 End: 07-31-2023 Emergency department patient visit Services [facility] Work Phone: [facility]-Emergency Room Work Phone: Start: 07-14-2023 End: 07-14-2023 ambulatory Services [facility] Work Phone: [facility] Work Phone: Start: 07-14-2023 End: 07-14-2023 Patient encounter procedure Services [facility] Work Phone: [facility] Start: 06-16-2023 End: 06-16-2023 ambulatory Services [facility] Work Phone: [facility] Work Phone: Start: 06-16-2023 End: 06-16-2023 Patient encounter procedure Services [facility] [employer] Work Phone: [facility] Start: 06-02-2023 Postop follow up vis it related to original px Colten Wesleyxa [facility] Start: 06-02-2023 End: 06-02-2023 ambulatory Services [facility] Work Phone: [employer] Other Start: 06-02-2023 End: 06-02-2023 Patient encounter procedure Services [employer] Work Phone: [facility] Start: 05-25-2023 End: 05-25-2023 Admission to same day surgery center Services [employer] Work Phone: [facility]-Surgery [facility] [place] Start: 05-25-2023 End: 05-25-2023 ambulatory Services [employer] Work Phone: [facility] Work Phone: Start: 05-24-2023 End: 05-24-2023 ambulatory Colten Olexa Other [employer] Other Start: 05-24-2023 Telephone encounter Colten Lupilloxa [facility] Start: 05-23-2023 End: 05-23-2023 ambulatory Colten Olexa Other [employer] Other Start: 05-23-2023 Encounter for other preprocedural examination Colten Wesleyxa [facility] Start: 05-23-2023 Office outpatient ne w 45 minutes Colten Wesleyxa [facility] Start: 03-15-2023 End: 03-15-2023 Departed Referred Services Family [facility] Work Phone: [facility] Start: 01-26-2023 End: 01-26-[address] DOCTOR MISC Facility:[facility] Start: 01-06-2023 End: 01-07-2023 Evaluation and management of inpatient Services [facility] Senior Work Phone: [facility] Medical [facility]tr Work Phone: Start: 01-06-[address] [facility] Senior Work Phone: [facility] Work Phone: Start: 01-06-2023 End: 01-07-[address] [facility] Senior Work Phone: [facility] [place] [facility] Work Phone: Start: 01-02-2023 End: 01-02-[address] [facility] Senior Work Phone: [facility] Ctr-Emergency Room Work Phone: Start: 01-01-2023 End: 01-01-2023 ambulatory IRWIN DIAB . Facility:[facility] Start: 12-31-2022 End: 12-31-2022 Emergency department patient visit Services [facility] Senior Work Phone: [facility] Work Phone: Start: 12-31-2022 End: 12-31-[address] [facility] Senior Work Phone: [facility] Ctr-Emergency Room Work Phone: Start: 11-09-2022 End: 11-09-2022 Emergency department patient visit Services [facility] Senior Work Phone: [facility] Work Phone: Start: 11-09-2022 End: 11-09-[address] [facility] Senior Work Phone: [facility] Ctr-Emergency Room Start: 11-07-2022 End: 11-07-2022 Emergency department patient visit Services [facility] Senior Work Phone: [facility] Ctr Work Phone: Start: 11-07-2022 End: 11-07-2022 Services [facility] Work Phone: [facility] Medical [facility]tr-Emergency Room Start: 11-02-2022 End: 11-02-2022 Emergency department patient visit Services [facility] Work Phone: [facility] Work Phone: Start: 11-02-2022 End: 11-02-2022 Services [facility] Work Phone: [facility] Medical [facility]tr-Emergency Room Start: 10-31-2022 End: 10-31-2022 Emergency department patient visit Services [facility] Work Phone: [facility]tr Work Phone: Start: 10-31-2022 End: 10-31-2022 Services [facility] Work Phone: [facility] Medical [facility]tr-Emergency Room Start: 10-29-2022 End: 10-29-2022 Emergency department patient visit Services [facility] Work Phone: [facility]tr-Emergency Room Start: 10-29-2022 End: 10-29-2022 Services [facility] Work Phone: [facility] Ctr-Emergency Room Start: 08-27-2022 End: 08-27-2022 Departed Referred Services [facility] Work Phone: [facility] Start: 08-27-2022 End: 08-27-2022 Services [facility] Work Phone: [facility] Start: 08-20-2022 End: 08-22-2022 Evaluation and management of inpatient Services [facility] Work Phone: [facility] [place] [facility] Start: 08-20-2022 End: 08-22-2022 Services [facility] Work Phone: [facility] [place] [facility] Start: 08-19-2022 End: 08-20-2022 Emergency department patient visit Services [facility] Work Phone: [facility] Ctr-Emergency Room Start: 08-19-2022 End: 08-20-2022 Services [facility] Work Phone: [facility] Ctr-Emergency Room Start: 08-19-2022 End: 08-19-2022 Emergency department patient visit Services [employer] Work Phone: [facility]-Emergency Room Start: 08-19-2022 End: 08-19-2022 Services [facility] Senior Work Phone: [facility] Ctr-Emergency Room Start: 08-18-2022 End: 08-18-2022 Emergency department patient visit Services [employer] Work Phone: [facility] Ctr-Emergency Room Start: 08-18-2022 End: 08-18-2022 Services [facility] Senior Work Phone: [facility]-Emergency Room Start: 06-25-2022 End: 06-25-2022 Departed Referred Services [employer] Work Phone: [facility] [facility] Start: 06-09-2022 End: 06-09-2022 Admission to same day surgery center Services [employer] Work Phone: [facility]-Digestive Health Start: 06-07-2022 End: 06-07-2022 Patient encounter procedure Services [employer] Work Phone: [facility]-Pre-Surgical Testing Start: 05-26-2022 End: 05-26-2022 Departed Referred Services [employer] Work Phone: [facility] [facility] Start: 05-16-2022 ambulatory 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 Mak 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 Comment on above: Abdominal Pain Start: 05-16-2022 End: 05-16-2022 Emergency department patient visit Services [employer] Work Phone: [facility]-Emergency Room Start: 05-15-2022 End: 05-15-2022 Emergency department patient visit Services [employer] Work Phone: [facility]-Emergency Room Start: 05-14-2022 End: 05-14-2022 Emergency department patient visit Services [facility] Work Phone: [facility]-Emergency Room Start: 05-14-2022 End: 05-14-2022 Emergency department patient visit Services Family [facility] Work Phone: [facility] Ctr-Emergency Room Start: 05-13-2022 End: 05-13-2022 Emergency department patient visit Services [employer] [facility] Work Phone: [facility]-Emergency Room Start: 06-23-2018 Evaluation and manag [...] 08-25-2017 Patient encounter DALI B SPLAWSKI Fa cility:[facility] Start: 08-09-2017 End: 08-24-2017 Evaluation and management of inpatient AIMEE ALEMAN Facility:[facility] Procedures Date Procedure Procedure Detail Performing Clinician Start: 05-04-2025 Urine culture Jasmeet Dahl MD Work Phone: Start: 10-28-2024 Urine culture Services [employer] Work Phone: Start: 07-14-2023 X-ray of right knee Services [employer] Work Phone: Start: 06-16-2023 X-ray of right knee Services [employer] Work Phone: Start: 06-02-2023 X-ray of right knee Services [employer] Work Phone: Start: 05-25-2023 Arthroscopy of knee Services [facility] [employer] Phone: Start: 03-15-2023 Respiratory Panel (PCR) Services [facility] [employer] Phone: Start: 01-06-2023 Computed tomography of abdomen and pelvis with contrast Services [facility] [employer] Phone: Start: 01-06-2023 Plain chest X-ray Services [facility] [employer] Phone: Start: 01-06-2023 Pelvis X-ray Services [facility] [employer] Phone: Start: 01-02-[address] [facility] [employer] Phone: Start: 12-31-2022 Influenza A and B virus antigen assay Services [facility] [employer] Phone: Start: 12-31-[address] [facility] [employer] Phone: Start: 11-02-[address] [facility] [employer] Phone: Start: 10-31-[address] [facility] [employer] Phone: Start: 08-19-2022 Computed tomography of abdomen and pelvis with contrast Services [facility] [employer] Phone: Start: 06-09-2022 Esophagogastroduodenoscopy Services [facility] [employer] Phone: Start: 05-16-2022 Computed tomography of abdomen and pelvis with contrast Services [facility] [employer] Phone: Start: 08-21-2017 Introduction of Nutritional Substance [...] Services [facility] Work Phone: Services [facility] Senior Work Phone: Plan of Treatment Date Care Activity Detail Author Start: 05-06-2025 Bacteria identified in Urine by Culture Urine Culture [facility] Start: 05-06-2025 Urine culture [facility] Start: 05-04-2025 Bacteria identified in Urine by Culture Urine Culture [facility] Start: 05-04-2025 Urine culture [facility] Start: 01-23-2025 Bacteria identified in Urine by Culture Urine Culture [facility] Start: 01-23-2025 Urine culture [facility] Start: 08-03-2024 [facility] Start: 03-18-2024 [facility] Start: 05-25-2023 [facility] Start: 05-25-2023 [facility] Start: 01-08-2023 Blood chemistry [facility] Start: 01-08-2023 [facility] Start: 01-07-2023 Blood chemistry [facility] Start: 01-07-2023 End: 01-07-2023 [facility] Start: 01-06-2023 Patient referral to dietitian [facility] Start: 01-06-2023 Hospital admission [facility] Start: 01-06-2023 [facility] Start: 01-06-2023 Computed tomography of abdomen and pelvis with contrast [facility] Start: 01-06-2023 CT Abdomen and Pelvis W contrast IV [facility] Start: 01-06-2023 End: 01-06-2023 [facility] Start: 01-06-2023 Urine culture [facility] Start: 12-31-2022 End: 12-31-2022 [facility] Start: 11-09-2022 [facility] Start: 10-29-2022 [facility] Start: 08-22-2022 [facility] Start: 08-22-2022 [facility] Work Phone: Start: 08-20-2022 Hospital admission [facility] Start: 08-20-2022 [facility] Medical [facility]tr Work Phone: Start: 08-20-2022 [facility] Work Phone: Start: 08-19-2022 Computed tomography of abdomen and pelvis with contrast CT abdomen pelvis w con [facility] Start: 08-19-2022 CT Abdomen and Pelvis W contrast IV [facility] Work Phone: Start: 08-19-2022 [facility] Work Phone: Start: 07-29-2022 Influenza vaccination INFLUENZA (Season Ended) [facility] Start: 06-09-2022 [facility] Work Phone: Start: 2022 CHLAMYDIA SCREENING (18-24) CHLAMYDIA SCREENING (18-24) [facility] Start: 2022 GC (GONORRHEA) SCREENING (18-24) GC (GONORRHEA) SCREENING (18-24) [facility] Start: 2022 HEPATITIS C SCREENING HEPATITIS C SCREENING [facility] Start: 2022 HIV SCREENING HIV SCREENING [facility] Start: 2020 MENINGOCOCCAL CONJUGATE (1 - 2-dose series) MENINGOCOCCAL CONJUGATE (1 - 2-dose series) [facility] Start: 2018 PEDS TO ADULT TRANSITION ANNUAL ASSESSMENT PEDS TO ADULT TRANSITION ANNUAL ASSESSMENT [facility] Start: 2016 Adult depression screening assessment DEPRESSION SCREENING [facility] Start: 2016 PEDS TO ADULT TRANSITION INITIAL DISCUSSION PEDS TO ADULT TRANSITION INITIAL DISCUSSION [facility] Start: 2015 HPV VACCINE (1 - 2-dose series) HPV VACCINE (1 - 2-dose series) [facility] Start: 2014 MENINGOCOCCAL B: Consider based on risk (1 of 2 - Risk Bexsero 2-dose series) MENINGOCOCCAL B: Consider based on risk (1 of 2 - Risk Bexsero 2-dose series) [facility] Start: 2011 Urine microalbumin profile DTAP,TDAP,TD (1 - Tdap) [facility] Start: 2009 COVID-19 VACCINE (#1) [facility] Amphetamines [Presen ce] in Urine [facility] Work Phone: Bacteria identified in Blood by Culture [facility] Bacteria identified in Urine by Culture [facility] Bacteria identified in Urine by Culture [facility] Barbiturates [Presen ce] in Urine [facility] Work Phone: Basophils [#/volume] in Blood by Automated count [facility] Basophils/100 leukoc ytes in Blood by Automated count [facility] Benzodiazepines [Pre sence] in Urine [facility] Work Phone: Bilirubin measurement, urine [facility] Work Phone: Cannabinoids [Presen ce] in Urine by Screen method [facility] Work Phone: Choriogonadotropin ( test) [Presence] in Urine [facility] Work Phone: Cocaine [Presence] in Urine [facility] Work Phone: Color of Urine [facility] Work Phone: Detection of hemoglobin [facility] Work Phone: Eosinophils/100 leuk ocytes in Blood by Automated count [facility] Erythrocyte distribu tion width [Ratio] by Automated count [facility] Erythrocytes [#/volu me] in Blood [facility] Glucose [Mass/volume ] in Urine by Test strip [facility] Work Phone: Hematocrit [Volume F raction] of Blood [facility] Hemoglobin [Mass/vol ume] in Blood [facility] Homogenous nuclear A b pattern [Titer] in Serum [facility] Work Phone: Leukocytes [#/volume ] corrected for nucleated erythrocytes in Blood by Automated coun [facility] Leukocytes [#/volume ] in Blood [facility] Lymphocytes [#/volum e] in Blood by Automated count [facility] Lymphocytes/100 leuk ocytes in Blood by Automated count [facility] MCH [Entitic mass] b y Automated count [facility] MCHC [Mass/volume] b y Automated count [facility] MCV [Entitic volume] by Automated count [facility] Measurement of keton es in urine using dipstick [facility] Work Phone: Monocytes [#/volume] in Blood by Automated count [facility] Monocytes/100 leukoc ytes in Blood by Automated count [facility] Neutrophils [#/volum e] in Blood by Automated count [facility] Neutrophils/100 leuk ocytes in Blood by Automated count [facility] Nuclear Ab [Titer] in Serum [facility] Work Phone: Nucleated erythrocyt es [Presence] in Blood by Automated count [facility] Patient Education [facility] Work Phone: Patient referral [facility] Work Phone: Phencyclidine [Prese nce] in Urine [facility] Work Phone: Platelet mean volume [Entitic volume] in Blood by Automated count [facility] Platelets [#/volume] in Blood [facility] Protein measurement, urine F [facility] Work Phone: SARS-CoV-2 (COVID-19 ) N gene [Presence] in Respiratory specimen by JANAK with probe detection [facility] Work Phone: Urinalysis, specific gravity measurement [facility] Work Phone: Urine culture Urine Culture [facility] Urine culture [facility] Urine dipstick for nitrite [facility] Work Phone: Urine dipstick for s pecific gravity [facility] Work Phone: Urine pH test [facility] Work Phone: Urobilinogen concent ration, test strip measurement [facility] Work Phone: [facility] Immunizations Immunization Date Immunization Notes Care Provider Susan alvarado 01-17-2018 tetanus toxoid, redu yoni diphtheria toxoid, and acellular pertussis vaccine, adsorbed Services Family [facility] Work Phone: [facility] 01-07-2017 Human Papillomavirus 9-valent vaccine Colten Olexa Other [employer] [facility] [employer] Other 01-07-2017 HPV, unspecified formulation Services [facility] Work Phone: [facility] 09-06-2016 influenza, injectabl e, quadrivalent, preservative free Colten Olexa Other [facility] 09-06-2016 Human Papillomavirus 9-valent vaccine Colten Olexa Other [employer] Other 09-06-2016 HPV, unspecified formulation Services [facility] Work Phone: [facility] 07-01-2016 human papilloma viru s vaccine, quadrivalent Colten Olexa Other [facility] 07-01-2016 meningococcal polysaccharide (groups A, C, Y and W-135) diphtheria toxoid conjugate vaccine (MCV4P) Colten Olexa Other [facility] 07-01-2016 tetanus toxoid, redu yoni diphtheria toxoid, and acellular pertussis vaccine, adsorbed Colten Olexa Other [facility] 09-01-2015 influenza, injectabl e, quadrivalent, preservative free Colten Olexa Other [facility] 08-19-2014 influenza, injectabl e, quadrivalent, contains preservative Services [facility] Work Phone: [facility] 08-19-2014 influenza, injectabl e, quadrivalent, preservative free [employer] Other [employer] Other 08-17-2013 influenza, seasonal, injectable, preservative free Colten Olexa Other [facility] Payers Date Payer Category Payer Self-pay 2019 Medicaid [employer] [id number] 2019-Present [phone] [address] [place] [address] Medicaid [id number] 2004 Unknown [id number] 2004 Unknown [id number] 2004 Unknown [id number] 2004 Unknown [id number] 2004 Unknown [id number] 2004 Unknown [id number] 2004 Unknown [id number] 2004 Unknown [id number] 1969 Unknown [id number] 1969 Unknown [id number] 1959 Medicaid [id number] Medicaid [id number] Medicaid [id number] Unknown [id number] Unknown [id number] Unknown [id number] Unknown [id number] Unknown [id number] Unknown [id number] Unknown [id number] Unknown [id number] Unknown [id number] Unknown [id number] Social History Date Type Detail Facility Start: 10-09-2021 End: 03-13-2024 Tobacco smoking status KSIS Never smoked tobacco [facility] Start: 10-09-2021 Tobacco use and exposure Smokeless tobacco non-user [facility] Start: 10-09-2021 Alcohol intake Lifetime non-d isael (finding) [facility] Start: 10-09-2021 History SDOH Alcohol Frequency 1 [facility] Start: 2004 Sex Assigned At Not on file C [facility] Start: 06-09-2022 End: 08-03-2024 Tobacco smoking status KSIS Smoker (finding) [facility] Start: 2004 Sex Assigned At Female [facility] Start: 08-18-2022 End: 10-28-2024 Tobacco smoking status KSIS Current some day smoker [facility] Start: 01-06-2023 Tobacco smoking status NHIS Ex-smoker (finding) [facility] Sex Assigned At [facility] Tobacco smoking status Never [facility] Start: 01-24-2025 End: 05-07-2025 Sex Female (finding) [facility] NEGATED: Highlighted row [facility] Medical Equipment Procedure Code Equipment Code Equipment Origin al Text Equipment Identifier Dates Arthroscopy, knee Tendon/ligamen t bone anchor, non-bioabsorbable [id number] FDA Start: 05-25-2023 Arthroscopy, knee Soft-tissue/me sh anchor, non-bioabsorbable [id number] FDA Start: 05-25-2023 Arthroscopy, knee Tendon/ligamen t bone anchor, bioabsorbable [id number] FDA Start: 05-25-2023 Goals Date Patient Goal Desired Activity /State Functional Status Date Assessment Result Facility 01-16-2025 Functional Status N/A [facility] 07-30-2024 Functional Status N/A [facility] 03-15-2024 Functional Status N/A [facility] 03-13-2024 Functional Status N/A [facility] 01-07-2023 Functional status Patient at Baseline [facility] Work Phone: 01-06-2023 Functional status Patient at Baseline [facility] Work Phone: 08-22-2022 Functional status Patient at Baseline [facility] Work Phone: Mental Status Date Assessment [...] your activities and whether you should start [id number] exercises for your injury. Ice Ice your [...] provider. Document Revised: 2021 Document Reviewed: 08/04/2018 [employer] Patient Education 2020 [employer] 01/16/2025 20:36:16 Contusion Contusion A contusion [...] sitting or lying down. General instructions Take [id number] and prescription medicines only as told by [...] provider. Document Revised: 05/02/2023 Document Reviewed: 05/02/2023 [employer] Patient Education 2023 [employer] 01/16/2025 20:36:16 Fall Prevention in the Home, Adult, Obas-bz-Qpub Fall Prevention in the Home, Adult Falls [...] Keep items that you use often in brra-wj-hdclr places. Lower the shelves around your home [...] of the way. Do not use floor jamaican or wax that makes floors slippery. What [...] for Disease Control and PreventionANASTACIO: cdc.gov National [place] on Aging: jacob.nih.gov National [place] on Aging: jacob.nih.gov Contact a doctor if: [...] provider. Document Revised: 07/18/2023 Document Reviewed: 07/18/2023 [employer] Patient Education 2023 [employer]. Follow Up Care 01/16/2025 17:51:58 With:MODESTA CHAND Address: [address] [place] [id number] [phone] Business (1) When:2025 20:14:58 Comments:Call Dr for diagnosis based follow up [facility] 01-16-2025 Note ED Patient Education Note [...] Keep items that you use often in yfyo-hp-tppyu places. Lower the shelves around your home [...] the way. ??? Do not use floor jamaican or wax that makes floors slippery. What [...] Control and Prevention, PHILIPADI: cdc.gov ??? National [place] on Aging: jacob.nih.gov ??? National [place] on Aging: jacob.nih.gov Contact a doctor if: [...] will go away. (more content not included)... [facility] 08-01-20[facility] Note ED Patient Education [...] such as yogurt. General instructions ? Take qqay-mca-lhfimwn and prescription medicines only as told by [...] provider. Document Revised: 07/29/2022 Document Reviewed: 07/29/2022 [employer] Patient Education ? 2023 [employer] Nausea and Vomiting, Adult Nausea is [...] has water adde (more content not included)... [facility] 07-31-2024 Hospital Discharg e instructions [...] water added (diluted fruit juice). Eat bland, euwz-kr-kflyno foods in small amounts as you are able. These foods include bananas, applesauce, rice, lean meats, toast, and crackers. Avoid fluids that contain a lot of sugar or caffeine, such as energy drinks, sports drinks, and soda. Avoid alcohol. Avoid spicy or fatty foods. General instructions Take ovyn-mbz-orxfuow and prescription medicines only as told by your health care provider. Drink enough fluid to keep your urine pale yellow. Wash your hands often using soap and water for at least 20 seconds. If soap and water are not available, use hand modeling director. Make sure that everyone in your [...] eating and drinking to prevent dehydration. Take sbjm-hwz-rbzfqpw and prescription medicines only as told by [...] provider. Document Revised: 05/21/2022 Document Reviewed: 05/21/2022 [employer] Patient Education 2023 Ellie Follow Up Care 07/30/2024 19:27:35 With:FAMILIA CHAND Address: [facility] [place] [phone] Business (1) When:08/02/2024 [facility] 07-30-2024 Note ED Patient Education Note [...] added (diluted fruit juice). ? Eat bland, dtis-bq-oitvdv foods in small amounts as you are able. These foods include bananas, applesauce, rice, lean meats, toast, and crackers. ? Avoid fluids that contain a lot of sugar or caffeine, such as energy drinks, sports drinks, and soda. ? Avoid alcohol. ? Avoid spicy or fatty foods. General instructions ? Take rdin-sha-rtepvzy and prescription medicines only as told by your health care provider. ? Drink enough fluid to keep your urine pale yellow. ? Wash your hands often using soap and water for at least 20 seconds. If soap and water are not available, use hand modeling director. ? Make sure that everyone in [...] and drinking to prevent dehydration. ? Take edud-mnu-ohvrsmj and prescription medicines only as told by [...] provider. Document Revised: 05/21/2022 Document Reviewed: 05/21/2022 [employer] Patient Education ? 2023 [employer]. [facility] 07-30-2024 Evaluation + Plan note [...] Nausea/Vomiting, # 16 tab(s), Refills(s) 0, Pharmacy: [facility]/pharmacy #[id number], 157, cm, 07/30/24 19:37:00 EDT, Height/Length Dosing, 96.1, kg, 07/30/24 19:37:00 EDT, Weight Dosing promethazine, 12.5 mg = 1 tab(s), Oral, q8hr, PRN as needed for nausea/vomiting, second line, # 10 tab(s), Refills(s) 0, Pharmacy: [facility]/pharmacy #[id number], 157, cm, 07/30/24 19:37:00 EDT, Height/Length Dosing, 96.1, kg, 07/30/24 19:37:00 EDT, Weight Dosing promethazine, 12.5 mg = 1 supp, Rectal, q8hr, PRN as needed for nausea/vomiting, 3rd line, # 6 EA, Refills(s) 0, Pharmacy: [facility]/pharmacy #[id number], 157, cm, 07/30/24 19:37:00 [...] Lipase Level Magnesium Level Saline Lock Insert [facility] 04-18-2024 Hospital Discharge instructions Patient Education [...] careprovider. Do not use recreational drugs. Take hauy-kjz-usjuzen and prescription medicines only as told by [...] provider. Document Revised: 06/08/2022 Document Reviewed: 06/08/2022 [employer] Patient Education 2022 [employer]. 03/15/2024 13:49:41 Nausea and Vomiting, Adult Nausea [...] water added (diluted fruit juice). Eat bland, ccyg-tv-wqgkhb foods in small amounts as you are able. These foods include bananas, applesauce, rice, lean meats, toast, and crackers. Avoid fluids that contain a lot of sugar or caffeine, such as energy drinks, sports drinks, and soda. Avoid alcohol. Avoid spicy or fatty foods. General instructions Take kvjf-lrc-ufaidko and prescription medicines only as told by your health care provider. Drink enough fluid to keep your urine pale yellow. Wash your hands often using soap and water for at least 20 seconds. If soap and water are not available, use hand modeling director. Make sure that everyone in your [...] eating and drinking to prevent dehydration. Take zxyj-xxf-uqotfcs and prescription medicines only as told by [...] provider. Document Revised: 05/21/2022 Document Reviewed: 05/21/2022 [employer] Patient Education 2022 [employer]. Follow Up Care 03/15/2024 10:34:05 With:Kirk Serrano Address:Unknown When:03/22/2024 13:33:04 Comments:Make sure to follow-up with Dr. Serrano at the surgery clinic in 1 week as instructed. Return to the emergency room if you develop chest pain, shortness of breath or any symptoms. [facility]04-18-2024 Evaluation + Plan noteExtracted from: Title:ED [...] CT Chest w/ Contrast eGFR Magnesium Level [facility]04-17-2024 Hospital Discharge instructions Patient Education 03/13/2024 22:27:59 Nausea and Vomiting, Adult, Yhoa-lm-Ludh Nausea and Vomiting, Adult Nausea is feeling [...] fruit juice). ?Low-calorie sports drinks. Eat bland, ddss-fh-oodhzl foods in small amounts as you are able, such as: ?Bananas. ?Applesauce. ?Rice. ?Low-fat (lean) meats. ?[employer]. ?Crackers. Avoid drinking fluids that have a lot of sugar or caffeine in them. This includes energy drinks, sports drinks, and soda. Avoid alcohol. Avoid spicy or fatty foods. General instructions Take fhuf-tgi-dnlpcqg and prescription medicines only as told by your doctor. Drink enough fluid to keep your pee (urine) pale yellow. Wash your hands often with soap and water for at least 20 seconds. If you cannot use soap and water, use hand modeling director. Make sure that everyone in your [...] your doctor about eating and drinking. Take npdw-rcq-hsihmgd and prescription medicines only as told by your doctor. Contact your doctor if your symptoms get worse or you have new symptoms. Keep all follow-up visits. This information is not intended to replace advice given to you by your health care provider. Make sure you discuss any questions you have with your health care provider. Document Revised: 05/21/2022 Document Reviewed: 05/21/2022 [employer] Patient Education 2022 [employer]. 03/13/2024 22:27:59 Muscle Strain, Njta-ay-Bzni Muscle Strain A muscle strain, or pulled [...] is not too tight. General instructions Take kztw-xee-ttiqyos and prescription medicines only as told by [...] provider. Document Revised: 02/01/2022 Document Reviewed: 02/01/2022 [employer] Patient Education 2022 [employer]. Follow Up Care 03/13/2024 17:33:30 With:MODESTA ARCHIBALD Address: [address] [place] [address] [phone] Business (1) When:03/16/2024 Comments:You can use the medications as prescribed as needed for pain, nausea. Please follow-up with your primary care doctor for further evaluation and management. Please return to the ED if you develop chest pain, difficulty breathing or if any concerning signs or symptoms. [facility]04-16-2024 Evaluation + Plan noteExtracted from: Title:ED [...] for 3 day(s), 7 tab(s), Refill(s) 0, [facility]/pharmacy #[id number], 160, cm, 03/13/24 17:38:00 [...] day(s), # 9 tab(s), Refills(s) 0, Pharmacy: [facility]/pharmacy #[id number], 160, cm, 03/13/24 17:38:00 EDT, Height/Length Dosing, 95.5, kg, 03/13/24 17:38:00 EDT, Weight Dosing morphine, 4 mg = 1 mL, Injection, IV Push, Once, Stop date 03/13/24 19:50:00 EDT, STAT, Start date 03/13/24 19:50:00 EDT, 03/13/24 19:50:00 EDT naproxen, 500 mg = 1 tab(s), Oral, BID, PRN for pain, # 20 tab(s), Refills(s) 0, Pharmacy: [facility]/pharmacy #[id number], 160, cm, 03/13/24 17:38:00 EDT, Height/Length Dosing, 95.5, kg, 03/13/24 17:38:00 EDT, Weight Dosing orphenadrine, 60 mg = 2 mL, Injection, IV Push, Once, Stop date 03/13/24 20:27:00 EDT, STAT, Start date 03/13/24 20:27:00 EDT, 03/13/24 20:27:00 EDT promethazine, 25 mg = 1 supp, Rectal, q6hr, PRN Nausea/Vomiting, # 6 EA, Refills(s) 0, Pharmacy: [facility]/pharmacy #[id number], 160, cm, 03/13/24 17:38:00 [...] kg, 2.06, m2 XR Chest 2 Views [facility]07-06-2023 Evaluation note* Encounter Date Diagnosis Assessment [...] Other specified postprocedural states (ICD-10 - Z98.890) Exposed Vocals Other 06-27-2023 Evaluation note* Encounter Date Diagnosis Assessment Notes Treatment Notes Treatment Clinical Notes Apr, Other specified postprocedural states (ICD-10 - Z98.890) Exposed Vocals Other 06-26-2023 Evaluation note* Encounter Date Diagnosis [...] for many months and potentially cause intermediate project manager pain and stiffness. We have discussed the many potential complications of surgery including respiratory, cardiac, and patient positioning during anesthesia. The risks of DVT, scarring, intermediate project manager pain, non union, hardware failure, development of [...] S82.111A) Apr, Pre-op exam (ICD-10 - Z01.818) Exposed Vocals Other 02-10-2023 History and physical note Author Eliana Bautista [facility] January 07, 2023 2:11am Note Date/Time January 06, 2023 5 :30pm [facility] [address] [place] [address] Hospitalist H&P Signed Patient: Pili Parikh MR#: [id number] : 2005 Acct:[id number] Age/Sex: 17 / F Adm Date: 3 Loc: Room: [address] [place] [address] Type: ADM INOo Attending Dr: Eliana Bautista MD Copies to: [facility] FRANKY Starkey MD~ HPI DATE OF EXAMINATION: [...] unless noted in the HPI or below [facility] Attestation Statement: The following information was [...] promethazine 25 mg rectal suppository 25 mg AR Q6H PRN Nausea #10 supp 01/02/23 [Rx [...] % (Auto) 19.9 % (.) 01/06/23 14:20 [place] % (Auto) 7.4 % (.) 01/06/23 14:20 Eos % (Auto) 2.3 % (.) 01/06/23 14:20 Baso % (Auto) 0.3 % (.) 01/06/23 14:20 Nucleat RBC Rel Count 0.1 /100 WBC (0-0.5) 01/06/23 14:20 Neut # (Auto) 12.4 x10E3/uL (1.2-7.7) H 01/06/23 14:20 Lymph # (Auto) 3.5 x10E3/uL (1.20-4.8) 01/06/23 14:20 [place] # (Auto) 1.3 x10E3/uL (0.1-1.00) H 01/06/23 [...] pH 6.5 (5.0-9.0) 01/06/23 16:10 Ur Specific [place] 1.027 (1.001-1.030) 01/06/23 16:10 Urine Protein 100 [...] FRANKY Stout> 01/06/231816 <Electronically signed by Eliana Bautsita MD> 01/07/23 021 [facility] Work Phone: 1(691) 394-202809-24-2022 Progress note Author Gregorio Carey [facility] August 21, 2022 5:01pm Note Date/Time August 21, 2022 5:01pm [facility] [address] [place] [address] Hospitalist Progress Note Signed Patient: Pili Parikh MR#: [id number] : 2005 Acct:[id number] Age/Sex: 17 / F Adm Date: 2 Loc: 3T Room: [address] [place] [address] Type: ADM IN Attending Dr: Gregorio Carey [...] alot of discomfort. She recalls that the heading up machine operator told her that in warm water [...] 1 Gm/10 Ml Udc PO 08/22/23 06:59 TID.AC.[facility] A&P - Hospitalist Assessment/Plan (1) [...] signed by Gregorio Carey DO> 08/21/22 1701 [facility] Work Phone: 1(361) 408-589809-23-2022 History and physical note Author Gregorio Carey [facility] August 20, 2022 8:17pm Note Date/Time August 20, 2022 8:17pm [facility] [address] [place] [address] Hospitalist H&P Signed Patient: Pili Parikh MR#: [id number] : 2005 Acct:[id number] Age/Sex: 17 / F Adm Date: 2 Loc: Room: [address] [place] [address] Type: ADM IN Attending Dr: Gregorio Carey DO Copies to: [facility] Senior Gregorio Carey DO~ HPI DATE [...] % (Auto) 11.5 % (.) 08/20/22 16:21 [place] % (Auto) 3.7 % (.) 08/20/22 16:21 Eos % (Auto) 0.3 % (.) 08/20/22 16:21 Baso % (Auto) 0.4 % (.) 08/20/22 16:21 Neut # (Auto) 9.2 x10E3/uL (1.2-7.7) H 08/20/22 16:21 Lymph # (Auto) 1.3 x10E3/uL (1.20-4.8) 08/20/22 16:21 [place] # (Auto) 0.4 x10E3/uL (0.1-1.00) 08/20/22 16:21 [...] <Electronically signed by Gregorio Carey DO> 08/20/222016 [facility] Work Phone: 1(508) 642-539606-19-2022 Miscellaneous Notes* Telephone Encounter - Luana Mak [...] if she can find a way to [facility], she will go there. Reason for Disposition Chest pain [1] Chest pain lasts > 5 minutes AND [2] described as crushing, pressure-like, or heavy Protocols used: ABDOMINAL PAIN - BDROW-UYRPX-SC, CHEST OAER-JHMMW-WQ [facility]21 NoteHNO ID: [id number] Author: Rolando Wooten MD Service: ? Author [...] completed when applicable. PROCEDURE NOTE: IANDD right MANUFACTURING TECHNICIAN Risks, benefits, personnel and alternatives were explained. The patient wished to proceed. S/he was re-identified and a time out obtained. PROCEDURE drainage right MANUFACTURING TECHNICIAN PREOPERATIVE DIAGNOSIS: right peritonsillar abscess POSTOPERATIVE DIAGNOSIS tonsillitis without pus in right peritonsillar area INDICATIONS: chronic right throat pain, worsening, concern for right MANUFACTURING TECHNICIAN at outside facility on scan . Drainage [...] no complication. MD Rolando Cherry, [facility]11-12-2021 NoteHNO ID: [id number] Author: Rolando Wooten MD Service: ? Author Type: Physician Type: Progress Notes Filed: 11/13/2021 1:09 AM Note Text: Rgegg HNS Consult This consult was requested by [...] tonsillitis. 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 Medical History intermittent asthma Medical History lactose intolerance Medical History POTS diag 09/2015 Surgical History appendectomy 2019 Hospitalization History strepthroat, uri, dehydr ation, otitis media 2004 Hospitalization History dehydtation 2006 Hospitalization History [facility] - persistent vomiti ng 09/12- Hospitalization History 3 days vomitting blood 0 01/2017 Hospitalization History vomiting, abd pain, dehy dration [facility] 07/22-07/27/2017 Hospitalization History RBC 08/14 Exposed Vocals Other Evaluation noteNo assessment information available [facility] Work Phone: Evaluation note* Diagnosis Onset Date Resolution Status Nausea & vomiting acute [facility] Work Phone: Evaluation note* Diagnosis Onset Date Resolution Status Dehydration acute Hypokalemia acute Intractable nausea and vomiting acute Nausea & vomiting acute [facility] Work Phone: Evaluation note* Diagnosis Onset Date Resolution Status Abdominal pain acute Acute hypokalemia acute Chest pain acute Dehydration acute Hypokalemia acute Hypovolemia acute Beverley-Cotton tear acute Nausea & vomiting acute [facility] Work Phone: History and physical note Author Eliana Bautista [facility] January 07, 2023 2:11am Note Date/Time January 06, 2023 5 :30pm [facility] [address] [place] [address] Hospitalist H&P Signed Patient: Pili Parikh MR#: [id number] : 2005 Acct:[id number] Age/Sex: 17 / F Adm Date: 3 Loc: Room: [address] [place] [address] Type: ADM INOo Attending Dr: Eliana Bautista MD Copies to: [facility] FRANKY Starkey MD~ HPI DATE OF EXAMINATION: [...] unless noted in the HPI or below [facility] Attestation Statement: The following information was [...] promethazine 25 mg rectal suppository 25 mg AR Q6H PRN Nausea #10 supp 01/02/23 [Rx [...] % (Auto) 19.9 % (.) 01/06/23 14:20 [place] % (Auto) 7.4 % (.) 01/06/23 14:20 Eos % (Auto) 2.3 % (.) 01/06/23 14:20 Baso % (Auto) 0.3 % (.) 01/06/23 14:20 Nucleat RBC Rel Count 0.1 /100 WBC (0-0.5) 01/06/23 14:20 Neut # (Auto) 12.4 x10E3/uL (1.2-7.7) H 01/06/23 14:20 Lymph # (Auto) 3.5 x10E3/uL (1.20-4.8) 01/06/23 14:20 [place] # (Auto) 1.3 x10E3/uL (0.1-1.00) H 01/06/23 [...] pH 6.5 (5.0-9.0) 01/06/23 16:10 Ur Specific [place] 1.027 (1.001-1.030) 01/06/23 16:10 Urine Protein 100 [...] signed by Eliana Bautista MD> 01/07/23 0211 [facility] Work Phone: Hospital course Narrative No data available for this section [facility] Work Phone: Hospital Discharge instructions Additional Instructions Follow-up with your primary care doctor Return to ED if develop worsening symptoms or concerns[facility] Work Phone: Hospital Discharge instructions Additional Instructions Follow-up with your primary care doctor Return to the ED if you develop worsening symptoms [facility] Work Phone: Hospital Discharge instructions Additional Instructions Take Phenergan as prescribed for nausea vomiting. Take Motrin and Tylenol as needed for muscle aches and pains. Take Carafate as prescribed.[facility] Work Phone: Hospital Discharge instructions Additional [...] you should first call your surgeon at [phone] for advice. If your are unable to contact your surgeon, seek help from a hospital emergency room. [facility] Work Phone: Hospital Discharge instructions Additional [...] with your family physician as soon as possible.[facility] Work Phone: Progress note No data available for this section [facility] Summary Purpose Family History No Family [...] DATE CREATED AUTHOR AUTHOR'S ORGANIZ ATION 07/14/2018 [facility] DATE CREATED AUTHOR AUTHOR'S ORGANIZ ATION 01/04/2022 [facility] DATE CREATED AUTHOR AUTHOR'S ORGANIZ ATION 02/02/2023 [facility] DATE CREATED AUTHOR AUTHOR'S ORGANIZ ATION 07/30/2024 [facility] DATE CREATED AUTHOR AUTHOR'S ORGANIZ ATION 08/02/2024 [facility] DATE CREATED AUTHOR AUTHOR'S ORGANIZ ATION 08/05/2024 [facility] DATE CREATED AUTHOR AUTHOR'S ORGANIZ ATION 01/18/2025 [facility] DATE CREATED AUTHOR AUTHOR'S ORGANIZ ATION 01/23/2025 [facility] DATE CREATED AUTHOR AUTHOR'S ORGANIZ ATION 05/10/2025 [facility] ysician Group Source Comments (unrecognize d section and content) In the event this informatio n is protected by the Federal Confidentiality of Alcohol and Drug Abuse Patient Records regulations: The Federal rules restrict any use of the information to criminally investigate or prosecute any alcohol or drug abuse patient.[facility] Reason for Visit (unrecogniz ed section and content) Reason Comments Abdominal Pain Care Teams (unrecognized sec tion and content) Team Status: Inactive Member Role Status Dates Services [facility] Primary Care Provider MILY Bishop Attending Provide r Active Team Status: Inactive Member Role Status Dates [facility] Primary Care Provider Active Modesta Leeanna Chand , COMMERCIAL LOAN COORDINATOR-C Attending Provide r Active Team Status: Inactive Member Role Status Dates Services [facility] Primary Care Provider Active Brennen Britt MD Attending Provider Active Team Status: Inactive Member Role Status Dates Services [facility] Primary Care Provider Active Art Bianchi , DO Emergency Provider Active Team Status: Inactive Member Role Status Dates Services [facility] Primary Care Provider Active Ravi Arguello , DO Emergency Provider Active Team Status: Inactive Member Role Status Dates Services [facility] Primary Care Provider Active Ender Donovan , Emergency Provider Active Team Status: Inactive Member Role Status Dates Services [facility] Primary Care Provider Active Gilson Castro DO Emergency Provider Active Team Status: Active Member Role Status Dates Services [facility] Primary Care Provider Ac tive Team Status: Inactive Member Role Status Dates Services [facility] Primary Care Provider Ac latesha Rivera APRN Emergency Provider Active Team Status: Inactive Member Role Status Dates Services [facility] Primary Care Provider Ac latesha Fry Jr, MD Emergency Provider Active Team Status: Inactive Member Role Status Dates Services [facility] Primary Care Provider Ac latesha Castro , DO Emergency Provider Active Team Status: Active Member Role Status Dates Services [facility] Primary Care Provider Ac latesha Castro , DO Emergency Provider Active Gregorio Carey , DO Admit Provider, Attending Pr ovider Active Team Status: Inactive Member Role Status Dates Services [facility] Primary Care Provider Ac latesha Castro , DO Emergency Provider Active Gregorio Aurelio , DO Admit Provider, Attending Pr ovider Active Team Status: Inactive Member Role Status Dates Services [facility] Primary Care Provider Ac latesha Arguello , DO Emergency Provider Active Team Status: Inactive Member Role Status Dates Art Bianchi DO Emergency Provider Active Services [facility] Primary Care Provider Ac tive Team Status: Inactive Member Role Status Dates Services [facility] Primary Care Provider Ac latesha Bolanos DO Emergency Provider Active Team Status: Inactive Member Role Status Dates Services [facility] Primary Care Provider Ac latesha Bianchi , DO Emergency Provider Active Team Status: Inactive Member Role Status Dates Services [facility] Primary Care Provider Active Dixon Newberry MD Emergency Provider Active Team Status: Active Member Role Status Dates Services [facility] Primary Care Provider Active Team Status: Inactive Member Role Status Dates Services [facility] Primary Care Provider Active Federico Randolph DO Emergency Provider Active Team Status: Active Member Role Status Dates Services [facility] Primary Care Provider Active Rd Brown PA-C Emergency Provider Active Eliana Bautista MD Admit Provider, Attending Provider Active Team Status: Inactive Member Role Status Dates Services [facility] Primary Care Provider Active Rd Brown PA-C Emergency Provider Active Eliana Bautista MD Admit Provider, Attending Provider Active Team Status: Inactive Member Role Status Dates [facility] [facility] Active Colten Miller MD Attending Provider Active Team Status: Inactive Member Role Status Dates Services [facility] Primary Care Provider Active Start: March 18, 2024 End: March 19, 2024 Femi Benitez MD Emergency Provider Active Star t: March 18, 2024 End: March 19, 2024 Team Status: Inactive Member Role Status Dates Services [facility] Primary Care Provider Active Start: August 03, 2024 End: August 04, 2024 Ania Watson MD Emergency Provider Active Start: August 03, 2024 End: August 04, 2024 Team Status: Active Member Role Status Dates Services [facility] Primary Care Provider Active Start: October 28, 2024 Cesar Mcdonald DO Attending Provider Active Sta rt: October 28, 2024 Team Status: Inactive Member Role Status Dates [facility] Primary Care Provider Active [...] BE BASED ON THE PRIMARY CLINICAL RECORDS. [facility]. provides no warranty or guarantee of the accuracy or completeness of information in this document.
[2025-07-14 14:15] VITALS: BP 129/91; PULSE 78; TEMP 36.8; O2SAT 98; BMI 34.8
--- NOTE | 2025-07-14 14:20 | ED.GENADUL1 ---
HPI HPI - General Adult General Chief complaint: Urogenital-Female Stated complaint: FLANK PAIN Time Seen by Provider: 07/14/25 14:16 Source: patient Mode of arrival: walk-in History of Present Illness HPI narrative: 20-year-old female presents for frequency of urination and some lower back pain. No gross hematuria or fever or vomiting. She thinks she might have a UTI, she has had them before. Symptoms present for 3 days, intermittent. Related Data Home Medications ?Medication ?Instructions ?Recorded ?Confirmed igeqyadark-lrmdbzopdejhs-paguunop cap 07/14/25 50 mg-300 mg-40 mg capsule Allergies Allergy/AdvReac Type Severity Reaction Status Date / Time metoclopramide (From Reglan) AdvReac Intermediate facial Verified 05/01/25 20:49 drooping Opioid HPI Opioid Management Most Recent Opioid Data: Last Pain Scale 8 05/06/25, 07:55 Last ORT Total Score 5 05/03/25, 14:33 Last ORT Risk Category Moderate Risk 05/03/25, 14:33 Ur Phencyclidine Scrn, (NEGATIVE) Negative 05/04/25, 06:20 Review of Systems ROS Narrative A ten point review of systems is negative except as noted above. PFSH [facility] Medical History (Updated 07/14/25 @ 15:29 by Juan C Hernandez MD) Marijuana use ?F12.90 - Cannabis use, unspecified, uncomplicated (ICD-10) Asthma ?J45.909 - Unspecified asthma, uncomplicated (ICD-10) Leukocytosis ?D72.829 - Elevated white blood cell count, unspecified (ICD-10) Bipolar 1 disorder ?F31.9 - Bipolar disorder, unspecified (ICD-10) Migraine ?G43.909 - Migraine, unspecified, not intractable, without status migrainosus (ICD-10) POTS (postural orthostatic tachycardia syndrome) ?G90.A - Postural orthostatic tachycardia syndrome [POTS] (ICD-10) Cyclic vomiting syndrome ?R11.15 - Cyclical vomiting syndrome unrelated to migraine (ICD-10) Cyclic vomiting syndrome ?R11.15 - Cyclical vomiting syndrome unrelated to migraine (ICD-10) Fall ?W19.XXXA - Unspecified fall, initial encounter (ICD-10) Fracture of tibial plateau ?S82.143A - Displaced bicondylar fracture of unspecified tibia, initial encounter for closed fracture (ICD-10) Surgical History History of appendectomy ?Z90.49 - Acquired absence of other specified parts of digestive tract (ICD-10) Family History Father Family history of stroke Family history of diabetes mellitus Family history of cancer Family history of hypertension Family history of CHF (congestive heart failure) Grandfather Family history of stroke Grandmother Family history of myocardial infarction Mother Family history of diabetes mellitus Family history of cancer Social History (Updated 05/03/25 @ 14:23 by Emili Benitez) Within the past year, how often did you have a drink containing alcohol: never Score interpretation: A score less than 3 is consistent with normal alcohol consumption. Smoking status: Current every day smoker Non-prescribed substance use: cannabis (any form) Previous occupational history: [employer] Highest level of school completed/degree received: high school graduate Little interest or pleasure in doing things: not at all Feeling down, depressed, or hopeless: not at all Feel stressed/tense/nervous/anxious/difficulty sleeping: not at all Do you think of yourself as: straight/heterosexual Gender Identity: female Exam Narrative Exam Narrative: Nurses note and vital signs reviewed and patient is not hypoxic. General: The patient appears well and in no apparent distress. Patient is resting comfortably on cart. Skin: Warm, dry, no pallor noted. There is no rash noted. Head: Normocephalic, atraumatic Eye: Normal conjunctiva, no drainage Ears, Nose, Mouth, and Throat: oral mucosa is moist. Nares patent. Cardiovascular: Regular Rate and Rhythm Respiratory: Patient is in no distress, no accessory muscle use, lungs are clear to auscultation, no wheezing, rales or rhonchi Back: non-tender, no CVA tenderness bilaterally to percussion. GI: Soft and nontender Musculoskeletal: No joint swelling Neurological: Awake and alert Psychiatric: Cooperative Constitutional Vital Signs, click to edit/add: Last Vital Signs Temp 98.2 F 07/14/25 14:15 Pulse 78 07/14/25 14:15 Resp 20 07/14/25 14:15 BP 129/91 07/14/25 14:15 Pulse Ox 98 07/14/25 14:15 O2 Del Method Room Air 07/14/25 14:15 Course Vital Signs Vital signs: Vital Signs Temperature 98.2 F 07/14/25 14:15 Pulse Rate 78 07/14/25 14:15 Respiratory Rate 20 07/14/25 14:15 Blood Pressure 129/91 07/14/25 14:15 Pulse Oximetry 98 07/14/25 14:15 Oxygen Delivery Method Room Air 07/14/25 14:15 Temperature 98.2 F 07/14/25 14:15 Pulse Rate 78 07/14/25 14:15 Respiratory Rate 20 07/14/25 14:15 Blood Pressure 129/91 07/14/25 14:15 Pulse Oximetry 98 07/14/25 14:15 Oxygen Delivery Method Room Air 07/14/25 14:15 Medical Decision Making MDM Narrative Medical decision making narrative: UA and test are negative. No evidence of UTI. CT scan is negative also, no evidence of kidney stone or other structural cause for her pain. She will be discharged home and was recommended ice and heating pad as well as ibuprofen. Treatment diagnosis and follow-up were discussed with the patient. Differential Diagnosis Differential Diagnosis: UTI, kidney stone, muscle strain Lab Data Lab results reviewed: Yes I reviewed the patient's lab results Labs: Lab Results 07/14/25 Range/Units 14:20 Urine Color Lt. yellow (YELLOW) Urine Clarity Clear (CLEAR) Urine pH >=9.0 A (5.0-9.0) Ur Specific [place] 1.015 (1.005-1.025) Urine Protein 30 A (NEG/TRACE) mg/dL Urine Glucose (UA) Negative (NEGATIVE) mg/dL Urine Ketones Negative (NEGATIVE) mg/dL Urine Occult Blood Negative (NEGATIVE) Urine Nitrite Negative (NEGATIVE) Urine Bilirubin Negative (NEGATIVE) Urine Urobilinogen 0.2 (0.2-1.0) EU/dL Ur Leukocyte Esterase Negative (NEGATIVE) Urine RBC 0-2 (0-2) #/HPF Urine WBC 0-2 A (NONE SEEN) #/HPF Ur Squamous Epith Cells Moderate A (NONE/RARE) #/LPF Urine Crystals None seen (None Seen) #/HPF Urine Bacteria Trace A (NONE SEEN) #/HPF Urine Casts None seen (NONE SEEN) #/LPF Urine Mucus None seen (NONE SEEN) Ur Culture Indicated? No Urine HCG, Qual Negative (NEGATIVE) Imaging Data CT scan - abdomen: Radiologist's impression: ITS Impressions Abdomen/Pelvis CT 07/14/25 14:51 IMPRESSION: No acute findings. 5.6 cm right ovarian cyst. Ultrasound follow-up in 6-12 weeks is suggested. Impression dictated by: Kumar Humphreys Jr., D.O. 07/14/2025 3:23 PM Dictation Location: [employer] Electronically authenticated by: [id number] Y Date: 07/14/2025 15:23 Discharge Plan Discharge Chief Complaint: Urogenital-Female Clinical Impression: Low back pain Patient Disposition: Home, Self-Care Time of Disposition Decision: 15:29 Condition: Good Mode of Transportation: Private Vehicle Prescriptions / Home Meds: No Action liygesiikg-oerxdjfslsgvl-vtoj 50-300-40 mg capsule Print Language: Trinidadian Instructions: Acute Low Back Pain (ED) Additional Instructions: Use a heating pad and ice. Take eanz-qcf-zaerozt ibuprofen. Referrals: [facility] [Primary Care Provider] - 1 week
[2025-07-14 14:30] LABS: Glucose Urine UA NEGATIVE (NEGATIVE)
[2025-07-14 14:33] LABS: HCG Qualitative Urine* NEGATIVE (NEGATIVE)
[2025-07-14 14:38] LABS: Cast Seen? NONE SEEN #/LPF (NONE SEEN); Crystals Seen? None Seen #/HPF (None Seen); Urine Culture Indicated NO
--- NOTE | 2025-07-14 14:51 | CT_ITS ---
The [address] [address] Patient Name: PILI SEGURA MRN: [id number] date: 2005 Sex: F Assigned Patient Location: ER Current Patient Location: ER Accession/Order Number: [id number] Exam Date: 07/14/2025 15:20 Report Date: 07/14/2025 15:23 At the request of: LINDA LARSON MD Procedure: CT abdomen pelvis wo con CT ABDOMEN AND PELVIS WITHOUT INTRAVENOUS CONTRAST: CLINICAL HISTORY: Back pain, rule out stone COMPARISON: None TECHNIQUE: Spiral images were obtained through the abdomen and pelvis without intravenous contrast. This CT exam was performed using one or more following dose reduction techniques: Automated exposure control, adjustment of the mA and/or kV according to patient size, or use of iterative reconstruction technique. FINDINGS: Lung Bases: [No acute process.] Mosaic attenuation Organs:Suboptimal evaluation due to lack of IV contrast. Hepatic steatosis. Gallbladder spleen pancreas and adrenal glands all appear unremarkable. Kidneys demonstrate no stone or hydronephrosis. Aorta appears normal in caliber.[ GI: Stomach is grossly unremarkable. Small bowel appears nondilated. Appendix has been removed. No acute colonic abnormality.[ Pelvis:[Urinary bladder is grossly unremarkable. Uterus is grossly unremarkable. Right ovarian cyst measuring 5.6 cm.] Peritoneum/Retroperitoneum:No free air, free fluid or lymphadenopathy.[ Abd wall/Bones:No acute findings. Osseous structures demonstrate no acute process.[ CT/CT abdomen pelvis wo con IMPRESSION: No acute findings. 5.6 cm right ovarian cyst. Ultrasound follow-up in 6-12 weeks is suggested. Impression dictated by: Kumar Humphreys Jr., D.O. 07/14/2025 3:23 PM Dictation Location: [place] [address] Electronically authenticated by: [id number] Y Date: 07/14/2025 15:23
== END 2025-07-14 15:40 | disposition home or self-care (01) ==
PROVIDERS: Emergency Provider Emergency Medicine
DX: R35.0 Frequency of micturition (principal); M54.50 Low back pain, unspecified; N83.291 Other ovarian cyst, right side
CPT/HCPCS: 74176; 81001; 84703; 99284

== ENCOUNTER 2025-08-22 04:35 | Emergency (ER) | payer OTHER, SELFPAY ==
[2025-08-22 04:46] VITALS: BP 119/76; PULSE 84; TEMP 36.9; O2SAT 96; BMI 36.6
--- NOTE | 2025-08-22 04:53 | ED_ITS ---
HPI - Nausea/Vomiting/Diarrhea General Chief complaint: Nausea/Vomiting/Diarrhea Stated complaint: NAUSEA/VOMITING Time Seen by Provider: 08/22/25 04:36 Source: patient Mode of arrival: ambulance Limitations: no limitations History of Present Illness HPI Narrative: This 20-year-old female with a history of marijuana use and cyclic vomiting syndrome who found out she was several days ago presents to the [facility] for evaluation of 3 days of nausea and vomiting. She states she has abdominal pain from vomiting. She is not currently having any vaginal bleeding. This is her second . She found out she was with a home test. She states she is scheduled to have blood work done later today at the [facility]. She denies that she is currently using mar ijuana. She has not had any diarrhea. She states she is urinating but not as much is normal. She has not had any fever. She does not have any chest pain or shortness of breath. She is not vomiting any blood. Related Data Home Medications ?Medication ?Instructions ?Recorded ?Confirmed [id number]-vlbygset cap 07/14/25 50 mg-300 mg-40 mg capsule Allergies Allergy/AdvReac Type Severity Reaction Status Date / Time metoclopramide (From Reglan) AdvReac Intermediate facial Verified 05/01/25 20:49 drooping Review of Systems ROS Status of ROS 10 or more systems reviewed and unremark able except as noted in history and below [facility] Medical History (Updated 08/22/25 @ 06:56 by Monet Donovan MD) Marijuana use ?F12.90 - Cannabis use, unspecified, uncomplicated (ICD-10) Asthma ?J45.909 - Unspecified asthma, uncomplicated (ICD-10) Leukocytosis ?D72.829 - Elevated white blood cell count, unspecified (ICD-10) Bipolar 1 disorder ?F31.9 - Bipolar disorder, unspecified (ICD-10) Migraine ?G43.909 - Migraine, unspecified, not intractable, without status migrainosus (ICD-10) POTS (postural orthostatic tachycardia syndrome) ?G90.A - Postural orthostatic tachycardia syndrome [POTS] (ICD-10) Cyclic vomiting syndrome ?R11.15 - Cyclical vomiting syndrome unrelated to migraine (ICD-10) Cyclic vomiting syndrome ?R11.15 - Cyclical vomiting syndrome unrelated to migraine (ICD-10) Fall ?W19.XXXA - Unspecified fall, initial encounter (ICD-10) Fracture of tibial plateau ?S82.143A - Displaced bicondylar fracture of unspecified tibia, initial encounter for closed fracture (ICD-10) Surgical History History of appendectomy ?Z90.49 - Acquired absence of other specified parts of digestive tract (ICD- 10) Family History Father Family history of stroke Family history of diabetes mellitus Family history of cancer Family history of hypertension Family history of CHF (congestive heart failure) Grandfather Family history of stroke Grandmother Family history of myocardial infarction Mother Family history of diabetes mellitus Family history of cancer Social History (Updated 05/03/25 @ 14:23 by Emili Benitez) Within the past year, how often did you have a drink containing alcohol: never Score interpretation: A score less than 3 is consistent with normal alcohol consumption. Smoking status: Current every day smoker Non-prescribed substance use: cannabis (any form) Previous occupational history: [employer] Highest level of school completed/degree received: high school graduate Little interest or pleasure in doing things: not at all Feeling down, depressed, or hopeless: not at all Feel stressed/tense/nervous/anxious/difficulty sleeping: not at all Do you think of yourself as: straight/heterosexual Gender Identity: female Exam Narrative Exam Narrative: Vital signs and Nursing Notes reviewed: Patient is afebrile with a normal pulse, normal blood pressure, she is not hypoxic with pulse ox of 96% on room air General: Awake, alert, oriented, no acute distress, lying comfortably on the stretcher, no respiratory distress, no active vomiting HEENT: Normocephalic atraumatic, mucous membranes are slightly dry, lips are dry, no posterior pharyngeal erythema Neck: Supple, no meningeal signs, no anterior or posterior cervical lymphadenopathy Chest: Lungs are clear to auscultation with good air entry, there is no wheezing rhonchi or rales appreciated no accessory muscle use, patient is speaking in complete sentences-no chest wall tenderness to palpation CVS: Regular rate and rhythm S1-S2, no murmurs rubs or gallops, pulses are brisk and equal bilaterally ABD: Obese, soft, nondistended, nontender, no rebound guarding or rigidity, bowel sounds are normal Extremities: Moving all extremities, no lower extremity tenderness or swelling noted, negative Homans' sign, pulses are brisk and equal bilaterally Skin: Normal in appearance without rash,pallor, petechiae or purpura Neuro: No focal deficits Constitutional Vital Signs, click to edit/add: Last Vital Signs Temp 98.5 F 08/22/25 04:46 Pulse 84 08/22/25 04:46 Resp 15 08/22/25 04:46 BP 119/76 08/22/25 04:46 Pulse Ox 96 08/22/25 04:46 O2 Del Method Room Air 08/22/25 04:46 Course Vital Signs Vital signs: Vital Signs Temperature 98.5 F 08/22/25 04:46 Pulse Rate 84 08/22/25 04:46 Respiratory Rate 15 08/22/25 04:46 Blood Pressure 119/76 08/22/25 04:46 Pulse Oximetry 96 08/22/25 04:46 Oxygen Delivery Method Room Air 08/22/25 04:46 Temperature 98.5 F 08/22/25 04:46 Pulse Rate 84 08/22/25 04:46 Respiratory Rate 15 08/22/25 04:46 Blood Pressure 119/76 08/22/25 04:46 Pulse Oximetry 96 08/22/25 04:46 Oxygen Delivery Method Room Air 08/22/25 04:46 MDM - Nausea/Vomiting/Diarrhea MDM Narrative Medical decision making narrative: This 20-year-old female with a history of cyclic vomiting syndrome due to marijuana use who has been seen in this emergency department multiple times and admitted and to recently found out she was several days ago after taking a home test presents for evaluation of 3 days of nausea and vomiting. She has generalized abdominal pain from vomiting but no lower abdominal pain or vaginal bleeding. She does not have a fever. An IV had been placed by EMS and she was given 4 mg of Zofran. Upon arrival her vomiting had improved. Her vital signs are stable. She was given a liter of normal saline and Pepcid. Routine labs were ordered. Her white count is elevated at 19 likely related to demargination due to excessive vomiting, she has a stable hemoglobin. Her potassium is mildly low at 3.0 but the remainder of her electrolytes and BUN and creatinine are normal. Her CO2 is mildly low at 23.1. Beta quantitative hCG was also ordered and is greater than 2600. After liter of normal saline she was able to tolerate oral potassium replacement tablet. She was then given D5 LR. She is now tolerating a popsicle. She will be discharged home with a prescription for Zofran and potassium with recommendation for close follow-up with her family clinic. Lab Data Labs: Lab Results 08/22/25 Range/Units 04:40 WBC 19.0 H (4.0-11.0) 10^3/uL RBC 5.09 (4.20-5.40) 10^6/uL Hgb 15.4 (12.0-16.0) g/dL Hct 42.8 (36.0-48.0) % MCV 84.1 (81.0-99.0) fL MCH 30.3 (26.7-34.0) pg MCHC 36.0 H (29.9-35.2) g/dL RDW 12.9 (11.0-15.0) % Plt Count 353 (150-450) 10^3/uL MPV 10.1 (9.5-13.5) fL Neut % (Auto) 83.8 H (43.0-75.0) % Lymph % (Auto) 8.3 L (20.5-60.0) % [place] % (Auto) 6.9 (1.7-12.0) % Eos % (Auto) 0.1 L (0.9-7.0) % Baso % (Auto) 0.2 (0.2-2.0) % Neut # (Auto) 15.9 H (1.4-6.5) 10^3/uL Lymph # (Auto) 1.6 (1.2-3.8) 10^3/uL [place] # (Auto) 1.3 H (0.3-0.8) 10^3/uL Eos # (Auto) 0.0 (0.0-0.7) 10^3/uL Baso # (Auto) 0.0 (0.0-0.1) 10^3/uL Abs Immat Gran (auto) 0.13 H (0.00-0.03) 10^3/uL Imm/Tot Granulo (auto) 0.7 H (0.0-0.5) % Sodium 134 L (136-145) mmol/L Potassium 3.0 L (3.5-5.1) mmol/L Chloride 94 L (98-107) mmol/L Carbon Dioxide 23.1 (21.0-32.0) mmol/L Anion Gap 19.9 BUN 37.0 H (7.0-18.0) mg/dL Creatinine 1.00 (0.55-1.02) mg/dL Est GFR ( Amer) >60 (>=60 mL/min/1.73m^2) Est GFR (Non-Af Amer) >60 (>=60 mL/min/1.73m^2) BUN/Creatinine Ratio 37.0 Glucose 144 H (74-106) mg/dL Calcium 10.1 (8.5-10.1) mg/dL Total Bilirubin 0.8 (0.2-1.0) mg/dL AST 16 (15-37) U/L ALT 38 (14-59) U/L Alkaline Phosphatase 91 (46-116) U/L Total Protein 9.5 H (6.4-8.2) g/dL Albumin 4.8 (3.4-5.0) g/dL Globulin 4.7 g/dL Albumin/Globulin Ratio 1.0 HCG, Quant 2670 mIU/mL Discharge Plan Discharge Patient Disposition: Still a Patient
[2025-08-22 04:56] LABS: Hematocrit 42.8 % (36.0-48.0); Hemoglobin 15.4 g/dL (12.0-16.0); Immature Granulocytes Abs Auto 0.13 10^3/uL (0.00-0.03); Immature Granulocytes Pct Auto 0.7 % (0.0-0.5); Lymphocytes Absolute Auto 1.6 10^3/uL (1.2-3.8); Mean Corpuscular HGB Conc 36.0 g/dL (29.9-35.2); Mean Corpuscular Hemoglobin 30.3 pg (26.7-34.0); Mean Corpuscular Volume 84.1 fL (81.0-99.0); Platelet Count 353 10^3/uL (150-450); Red Blood Count 5.09 10^6/uL (4.20-5.40); White Blood Count 19.0 10^3/uL (4.0-11.0)
[2025-08-22] MEDS: 0.9 % SODIUM CHLORIDE 1,000 ML 1000 ML IV (05:06)
[2025-08-22] MEDS: FAMOTIDINE/PF 20 MG/2 ML VIAL IV (05:06)
[2025-08-22 05:08] LABS: Alanine Aminotransferase 38 U/L (14-59); Albumin Globulin Ratio 1.0; Albumin Level 4.8 g/dL (3.4-5.0); Alkaline Phosphatase 91 U/L (46-116); Anion Gap 19.9; Aspartate Amino Transferase 16 U/L (15-37); Blood Urea Nitrogen 37.0 mg/dL (7.0-18.0); Calcium 10.1 mg/dL (8.5-10.1); Carbon Dioxide 23.1 mmol/L (21.0-32.0); Chloride 94 mmol/L (98-107); Estimated GFR (African America >60 (>=60 mL/min/1.73m^2); Estimated GFR (Non-African Ame >60 (>=60 mL/min/1.73m^2); Globulin 4.7 g/dL; Glucose 144 mg/dL (74-106); Potassium 3.0 mmol/L (3.5-5.1); Sodium 134 mmol/L (136-145); Total Protein 9.5 g/dL (6.4-8.2)
--- OUTSIDE RECORDS SUMMARY | 2025-08-22 05:19 | XMS_ITS | CCD ---
Author Organization [facility] Care Team Providers Care Central Sterile Tech Name Role Phone Calvin, Mere T Unavailable [...] Nilay Unavailable Unavailable Unavailable Primary Care Provider [facility] Primary Care Provider DO Art Bianchi Emergency Provider Donovan, DO Ender J Emergency Provider Tugisselle, DO VoRavi M Emergency Provider Matthew DO Gilson Emergency Provider MILY Chand Attending Pr ovider MD Brennen Britt Attending Provider [facility] Prov ider [facility] Primary Care Provider [phone] FRANKY Rivera Emergency Provider MD Colten Fry Jr Emergency Provider DO Matthew Gilson Emergency Provider Aurelio, DO Gregorio Admit Provider [phone] Aurelio DO Gregorio Attending Provider [facility] Prov ider FRANKY Rivera Emergency Provider MD Colten Fry Jr Emergency Provider Matthew DO Gilson Emergency Provider Aurelio DO Gregorio Admit Provider Aurelio, DO Gregorio Attending Provider MILY Chand Attending Pr ovider Tugisselle, DO Rodrigues M Emergency Provider [facility] Prov ider FRANKY Rivera Emergency Provider MD Colten Fry Jr Emergency Provider DO Matthew Gilson Emergency Provider Aurelio, DO Gregorio Admit Provider Aurelio DO Gregorio Attending Provider MILY Chand Attending Pr ovider DO Ravi Arguello Emergency Provider DO Art Bianchi Emergency Provider DO Robert Bolanos Emergency Provider [phone] [facility] Primary Care Provider MD Dixon Newberry Emergency Provider [facility] Primary Care Prov ider DO Federico [...] Unavailable Colten Miller Unavailable [facility] Primary Care Provider MILY Chand Attending Pr ovider MD Colten Miller Attending Provider [phone] [facility] Primary Care Provider DO Ravi Arguello Emergency Provider [phone] MODESTA ARCHIBALD Primary Care Physician [facility] Primary Care Provider MD Femi Benitez Emergency Provider Cresencio Abel Attending Unavailable MODESTA ARCHIBALD Primary Care Unavailable MODESTA ARCHIBALD Primary Care Unavailable August Bermudez Attending Unavailable MODESTA ARCHIBALD Primary Care Unavailable DO Isaak Francis Attending Unavailable [facility] Primary Care Provider MD Ania Watson Emergency Provider MODESTA ARCHIBALD Primary Care Unavailable August Bermudez Attending Unavailable Cresencio Abel Attending Unavailable MODESTA ARCHIBALD Primary Care Unavailable MODESTA CHAND Primary Care Physician August Bermudez Attending Unavailable August Bermudez Attending Unavailable August Bermudez Attending Unavailable [facility] Primary Care Provider Rd Brown PA-C Emergency Provider Makayla Monk DO Attending Provider Jasmeet Dahl MD Attending Provider [phone] Drew Steinberg MD Attending Provider Jasmeet Dahl Admitting Unavailable Jasmeet Dahl Attending Unavailable Drew Steinberg Admitting Unavailable Drew Steinberg Attending Unavailable [facility] Primary Care Unavaila Ania Paz Admitting Unavailable Ania Watson Attending Unavailable Rd Brown Admitting Unavailable Rd Brown Attending Unavailable [facility] Primary Care Unavaila Makayla Verma Admitting Unavailable Makayla Monk Attending Unavailable Allergies Allergy Classification Reported Allergen(s) Allergy Type Date of Onset Reaction(s) Facility (15 sources) Haloperidol; Translations: [Haloperidol] Drug Allergy 3 Unknown Reaction, facial droop [facility] (17 sources) Metoclopramide; Translations: [Metoclopramide] Drug Allergy 3 Unknown (qualifier value) [facility] (5 sources) Haloperidol; Translations: [Haldol] Drug Allergy [facility] (5 sources) Iothalamate; Translations: [Reglan] Drug Allergy [facility] Medications Current Medications Medication Drug Class(es) Dates Sig (Normalized) Sig (Original) acetaminophen 325 mg / HYDROcodone bitartrate 5 mg oral tablet (20 sources) Opioid Agonist Start: 03-13-2024 End: 03-16-2024 [place] 325 mg-5 mg oral tablet 1 tab(s), Oral, q6hr for pain for 3 day(s), 7 tab(s), Refill(s) 0, [id number], 160, cm, 03/13/24 17:38:00 EDT, Height/Length Dosing, [...] six hours as needed for pain Hydrocodone-Acetaminophen ([place]) 5-325 mg tablet Discontinued 1 TAB PO [...] twice daily as needed for pain Hydrocodone-Acetaminophen ([place]) 5-325 mg tablet Discontinued 1 TAB PO [...] day(s), # 21 tab(s), Refills(s) 0, [id number] 157, cm, 01/16/25 17:56:00 EST, [...] day(s), # 9 tab(s), Refills(s) 0, Pharmacy: [facility]/pharm[facility] #[id number], 160, cm, 03/13/24 17:38:00 EDT, [...] food, # 20 tab(s), Refills(s) 0, Pharmacy: [facility]/pharmacy #[id number], 157, cm, 01/16/25 17:56:00 EST, [...] nausea/vomiting, # 10 tab(s), Refills(s) 0, Pharmacy: [facility]/pharmacy #[id number], 157, cm, 01/16/25 17:56:00 EST, Height/Length Dosing, 95, kg, 01/16/25 17:56:00 EST, Weight Dosing Start Date: 01/16/25 Status: Ordered Start: 07-30-2024 take 1 tablet by kathe th every eight hours as needed for nausea promethazine 12.5 mg oral tablet 12.5 mg = 1 tab(s), Oral, q8hr, PRN as needed for nausea/vomiting, second line, # 10 tab(s), Refills(s) 0, Pharmacy: [facility]/pharmacy #[id number], 157, cm, 07/30/24 19:37:00 EDT, Height/Length Dosing, 96.1, kg, 07/30/24 19:37:00 EDT, Weight Dosing Start Date: 07/30/24 Status: Ordered Start: 07-30-2024 take 12.5 mg rectal route every eight hours as needed for nausea Phenergan 12.5 mg Supp 12.5 mg = 1 supp, Rectal, q8hr, PRN as needed for nausea/vomiting, 3rd line, # 6 EA, Refills(s) 0, [id number] 157, cm, 07/30/24 19:37:00 EDT, [...] 25 mg supposito ry Discontinued 25 MG OK Q6H as needed for Nausea January 02, [...] 25 mg supposito ry Discontinued 25 MG OK Q6H as needed for nausea and vomiting [...] 12.5 mg supposi tory Discontinued 12.5 MG OK Once September 30, 2021 12:00am October 08, 2021 9:34pm Start: 09-30-2021 End: 10-08-2021 Promethazine Discontinued 12 .5 MG OK Once September 30, 2021 12:00am October 08, [...] mg suppository Discontinued 25 MG OK Q4H as needed for nausea and vomiting [...] mg suppository Discontinued 25 MG OK Q8H as needed for nausea and vomiting February 13, 2018 12:00am March 13, 2018 10:44pm Start: 01-03-2018 End: 10-16-2018 Promethazine 25 mg supposito ry Discontinued 25 MG OK Q6H as needed for Nausea April 23, [...] Nausea/Vomiting, # 16 tab(s), Refills(s) 0, Pharmacy: [facility]/pharmacy #[id number], 157, cm, 07/30/24 19:37:00 EDT, [...] every 4-6 hrs for 5 days SANTO: [id number] Apr, Active take 1 tablet by kathe th every six hours oxyCODONE-Acetaminophen 5-325 MG 1 tablet as needed Orally every 6 hrs Active [id number] 200 actuat albuterol 0.09 mg/actuat metered dose [...] / neomycin 3.5 mg/ml / polymyxin b [id number] unt/ml otic suspension (20 sources) Aminoglycoside Antibacterial, Polymyxin-class Antibacterial, Corticosteroid Start: 10-31-2017 End: 12-21-2017 Elaegpza-Dyweixuyg-Pl 3.5-10,000-1 mg/mL-unit/mL-% drops,suspension Discontinued 3 DROPS OTIC [...] 11, 2019 1:00am January 12, 2021 1:35pm Vcgtigtu-Pyu-Wyofoga Fumarate (Multi Vitamin) 9 mg iron/15 mL Liquid (17 sources) Start: 09-30-20 End: 07-19-20 take 1 tablet by mouth once daily Rcoggfml-Joq-Wfkujxy Fumarate (Multi Vitamin) 9 mg iron/15 mL Liquid Discontinued 1 TAB PO Daily September 29, 2019 11:00pm July 19, 2021 1:07pm Start: 09-30-2019 End: 07-19-2021 take 1 tablet by mouth once daily Ylijnsrx-Wvf-Wtfqkbv Fumarate (Multi Vitamin) 9 mg iron/15 mL [...] End: 03-13-2018 Oxymetazoline (Afrin (Oxymetazoline)) 0.05 % Prim,Non-Aerosol Discontinued 2 SPRAY INTRANASAL Q12H December 23, [...] 2022 11:25am administer with food or milk Prenat.Vits,Neo,Vwq-Eiyx-Vnu ic (14 sources) Start: 02-06-2022 End: 03-08-2022 take 1 tablet by mouth once daily Prenat.Vits,Noe,Hih-Ocbt-Wkoop Discontinued 1 TAB PO Daily 60 February 06, 2022 12:00am March 08, 2022 7:15pm Start: 02-06-2022 End: 03-08-2022 take 1 tablet by mouth once daily Prenat.Vits,Noe,Dfs-Zqok-Lnwkt Discontin ued 1 TAB PO Daily 60 February 06, 2022 1:00am March 08, 2022 8:15pm Prenat.Vits,Noe,Khv-Pnpm-Vxz ic tablet (3 sources) Start: 02-06-2022 End: 03-08-2022 take 1 tablet by mouth once daily Prenat.Vits,Noe,Shp-Eirb-Xkivz tablet Discontinued 1 TAB PO Daily 60 February 06, 2022 1:00am March 08, 2022 8:15pm Start: 02-06-2022 End: 03-08-2022 take 1 tablet by mouth once daily Prenat.Vits,Noe,Mio-Womu-Ifuqr tablet Discontinued 1 TAB PO Daily 60 February 06, 2022 12:00am March 08, 2022 7:15pm Vit No.229-Ksnv-Ignaf ( Vitamin) 27 mg iron- 800 mcg tablet (17 sources) Start: 06-08-2022 End: 08-18-2022 take 1 tablet by mouth once daily Vit No.398-Mtzq-Njhxp ( Vitamin) 27 mg iron- 800 mcg tablet Discontinued 1 TAB PO Daily June 07, 2022 11:00pm August 18, 2022 11:33am Start: 06-08-2022 End: 08-18-2022 take 1 tablet by mouth once daily Vit No.665-Mlhm-Uxmll ( Vitamin) 27 mg iron- 800 mcg tablet Discontinued 1 TAB PO Daily June 08, 2022 12:00am August 18, 2022 12:33pm Start: 06-08-2022 take 1 tablet by kathe th once daily Vit No.391-Avwj-Twhtt ( Vitamin) 27 mg iron- 800 mcg [...] K92.0(ICD-10) Onset: 7 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 Normal [facility] Comment on above: Performed By: #### C UU #### [place] [id number] [facility] Urine Cultureon 05-04-2025 Bacteria identified Cx Nom (U) <9,000 colonies/ml mixed bacterial skin contaminants 2 Days PERFORMED BY: [place] [address] PATHOLOGIST REGIONAL ENGINEER FRAN NUNEZ M.D. Normal [facility] Comment on above: Performed By: #### C UU #### [facility] [address] [place] [address] Urine cultureOrdered By: Phi Dahl on 05-04-2025 Bacteria identified Cx Nom (U) Urine culture [facility] Urine Cultureon 01-23-2025 Bacteria identified Cx Nom (U) >100,000 colonies/ml mixed bacterial skin contaminants 2 Days PERFORMED BY: [place] [address] PATHOLOGIST REGIONAL ENGINEER IDANIA GODOY M.D. Normal [facility] Comment on above: Performed By: #### C UU #### [address] Abdomen/Pelvis w/ Contras ton 01-17-2025 [...] MD Transcribed by: KIRA Technologist: FABIÁN Edmond [facility] CT Chest w/ Contraston 01-17 CT [...] Anselmo Dolan MD Transcribed by: KIRA Technologist: [facility] CT Head or Brain w/o Contras [...] Anselmo Dolan MD Transcribed by: KIRA Technologist: [facility] CT Spine Cervical w/o Contra ston [...] MD Transcribed by: KIRA Technologist: FABIÁN Edmond [facility] ED Note-Physicianon 01-17-20 ED Note-Physician ED Note-Physician [...] and Complexity of Problems Differential Diagnosis: [] [facility] Data External documents reviewed: [] My EKG [...] day(s), # 21 tab(s), Refills(s) 0, Pharmacy: [facility]/pharmacy #[id number], 157, cm, 01/16/25 17:56:00 EST, [...] food, # 20 tab(s), Refills(s) 0, Pharmacy: [facility]/pharmacy #[id number], 157, cm, 01/16/25 17:56:00 EST, Height/Length Dosing, 95, kg, 01/16/25 17:56:00 EST, Weight Dosing promethazine, 12.5 mg = 0.5 tab(s), Tab, Oral, Once, Stop date 01/16/25 19:41:00 EST, STAT, Start date 01/16/25 19:41:00 EST, 01/16/25 19:41:00 EST promethazine, 12.5 mg = 1 tab(s), Oral, q6hr, PRN for nausea/vomiting, # 10 tab(s), Refills(s) 0, Pharmacy: [facility]/pharmacy #[id number], 157, cm, 01/16/25 17:56:00 EST, Height/Length Dosing, 95, kg, 01/16/25 17:56:00 EST, Weight Dosing ABO/Rh ABO/Rh History Check Antibody Screen Basic Metabolic Panel Beta hCG Qual Blood Bank ID# CBC w/ Auto Diff CT Abdomen/Pelvis w/ Contrast CT Chest w/ Contrast CT Head or Brain w/o Cont (more content not included)... [facility] Comment on above: Result Comment: Elec tronically [...] Araya DO Transcribed by: KIRA Technologist: DES [facility] XR Knee Complete 4+ Views Leidy tubbs [...] DO Transcribed by: KIRA Technologist: AMD Normal [facility] ABO/Rhon 01-16-2025 ABO/Rh Positive Invalid Interpretation Code [facility] Comment on above: Performed By: #### 2 [id number] #### [facility] [address] [place] [address] ABO/Rh History Checkon 01-16 ABO/Rh History Check Verified Hx Blood Type Normal [facility] Comment on above: Performed By: #### 1 [id number] #### [facility] [address] [place] [address] ABSCon 01-16-2025 ABSC Gel Interp Negative Normal [facility] Comment on above: Performed By: #### 1 [id number] #### [facility] [address] [place] [address] B hCG Qualon 01-16-2025 Beta HCG ( test) Ql Negative Normal [facility] Comment on above: Performed By: #### 2 [id number] #### [facility] [address] [place] [address] BLOOD BANKOrdered By: Ti Mccain on 01-16-2025 ABO/Rh Interp Positive Invalid Interpretation Code [facility] BB Subsection ABSC Gel Interp Negative (01/16/25 7:26 PM) Normal [facility] BB Subsection BMPon 01-16-2025 Anion gap [Moles/Vol] 20 mmol/L High 6-16 [facility] Comment on above: Performed By: #### 2 [id number] #### [facility] [address] [place] [address] Calcium [Mass/Vol] 10.9 mg/dL Normal 8.9-11.1 [facility] Comment on above: Performed By: #### 2 [id number] #### [facility] [address] [place] [address] Chloride [Moles/Vol] 101 mmol/L Normal 101-111 [facility] Comment on above: Performed By: #### 2 [id number] #### [facility] [address] [place] [address] CO2 [Moles/Vol] 22 mmol/L Normal 21-31 [facility] Comment on above: Performed By: #### 2 [id number] #### [facility] [address] [place] [address] Creatinine [Mass/Vol] 0.9 mg/dL Normal 0.5-1.3 [facility] Comment on above: Performed By: #### 2 [id number] #### [facility] [address] [place] [address] Glucose [Mass/Vol] 116 mg/dL Normal 55-199 [facility] Comment on above: Performed By: #### 2 [id number] #### [facility] [address] [place] [address] Potassium [Moles/Vol] 3.3 mmol/L Low 3.5-5.3 [facility] Comment on above: Performed By: #### 2 [id number] #### [facility] [address] [place] [address] Sodium [Moles/Vol] 140 mmol/L Normal 135-145 [facility] Comment on above: Performed By: #### 2 [id number] #### [facility] [address] [place] [address] Urea nitrogen [Mass/Vol] 23 mg/dL High 5-21 [facility] Comment on above: Performed By: #### 2 [id number] #### [facility] [address] [place] [address] Urea nitrogen/Creatinine [Mass ratio] 26 No Units High 10-20 [facility] Comment on above: Performed By: #### 2 [id number] #### [facility] [address] [place] [address] Blood Bank ID#on 01-16-2025 BBID# [id number] Invalid Interpretation Code [facility] Comment on above: Performed By: #### 1 [id number] #### [facility] [address] [place] [address] CBC w/ Auto Diffon 5 Basophils/100 WBC (Bld) 0.3 % Normal 0.0-2.0 [facility] Comment on above: Performed By: #### 2 [id number] #### [facility] [address] [place] [address] Basophils/Leukocytes Auto (Bld) [Pure # fraction] 0.0 E9/L Normal 0.0-0.2 [facility] Comment on above: Performed By: #### 2 [id number] #### [facility] [address] [place] [address] Eosinophils (Bld) [#/Vol] 0.0 E9/L Normal 0.0-0.5 [facility] Comment on above: Performed By: #### 2 [id number] #### [facility] [address] [place] [address] Eosinophils/100 WBC (Bld) 0.0 % Normal 0.0-8.0 [facility] Comment on above: Performed By: #### 2 [id number] #### [facility] [address] [place] [address] Erythrocyte distribution width (RBC) [Ratio] 13.7 % Normal 10.9-14.2 [facility] Comment on above: Performed By: #### 2 [id number] #### [facility] [address] [place] [address] Hematocrit (Bld) [Volume fraction] 46.9 % High 34.0-46.0 [facility] Comment on above: Performed By: #### 2 [id number] #### [facility] [address] [place] [address] Hemoglobin (Bld) [Mass/Vol] 16.0 g/dL Normal 12.0-16.0 [facility] Comment on above: Performed By: #### 2 [id number] #### [facility] [address] [place] [address] Lymphocytes (Bld) [#/Vol] 1.4 E9/L Normal 1.0-4.0 [facility] Comment on above: Performed By: #### 2 [id number] #### [facility] [address] [place] [address] Lymphocytes/100 WBC (Bld) 11.6 % Low 14.0-50.0 [facility] Comment on above: Performed By: #### 2 [id number] #### [facility] [address] [place] [address] MCH (RBC) [Entitic mass] 28.8 pg Normal 27.0-34.0 [facility] Comment on above: Performed By: #### 2 [id number] #### [facility] [address] [place] [address] MCHC (RBC) [Mass/Vol] 34.1 g/dL Normal 31.4-36.0 [facility] Comment on above: Performed By: #### 2 [id number] #### [facility] [address] [place] [address] MCV (RBC) [Entitic vol] 84.3 fL Normal 80.0-100.0 [facility] Comment on above: Performed By: #### 2 [id number] #### [facility] [address] [place] [address] Monocytes (Bld) [#/Vol] 0.6 E9/L Normal 0.2-1.0 [facility] Comment on above: Performed By: #### 2 [id number] #### [facility] [address] [place] [address] Neutrophils (Bld) [#/Vol] 10.0 E9/L High 2.0-7.5 [facility] Comment on above: Performed By: #### 2 [id number] #### [facility] [address] [place] [address] Neutrophils/100 WBC (Bld) 83.4 % High 36.0-75.0 [facility] Comment on above: Performed By: #### 2 [id number] #### [facility] [address] [place] [address] Platelet mean volume (Bld) [Entitic vol] 8.9 fL Normal 6.4-10.8 [facility] Comment on above: Performed By: #### 2 [id number] #### [facility] [address] [place] [address] Platelets (Bld) [#/Vol] 300.0 E9/L Normal 150.0-500. 0 [facility] Comment on above: Performed By: #### 2 [id number] #### [facility] [address] [place] [address] RBC (Bld) [#/Vol] 5.6 E12/L Normal 4.3-5.9 [facility] Comment on above: Performed By: #### 2 [id number] #### [facility] [address] [place] [address] WBC corrected for nucl RBC Auto (Bld) [#/Vol] 12.0 E9/L High 4.0-11.0 [facility] Comment on above: Performed By: #### 2 [id number] #### [facility] [address] [place] [address] CHEMISTRYOrdered By: SYSTEM SYSTEM on 01-16-2025 Albumin [...] Sensitivity Troponin I Instructions For Use, [place], June 2018) Urea nitrogen [Mass/Vol] 23 mg/dL High 5 - 21 mg/dL Remisol Chem Urea nitrogen/Creatinine [Mass ratio] 26 mg/mg High 10 - 20 [facility] COAGULATIONOrdered By: Luisa Morrell on 01-16-2025 aPTT Coag (PPP) [Time] 23.1 s Low 25.1 - 36.5 second(s) [facility] Auto Coag Comment on above: Interpretive [...] the same coagulation reagent and instrumentation as [facility]. Currently there are no coagulation studies available worldwide for children to 14 days, and no normal ranges. Heparin therapeutic range (represented by Anti-Factor Xa activity of 0.2 - 0.4 U/mL) corresponds to PTT of 56.6 - 109.0 sec. INR Coag (PPP) [Relative time] 1.10 {INR} Invalid Interpretation Code [facility] Auto Coag Comment on above: Interpretive Data: I NR results are specifically intended to assess patients stabilized on long-term Anticoagulation therapy suggested INR s Less Intensive Anticoagulation 2.0 3.0 Conventional Range 3.0 4.5 PT Coag (PPP) [Time] 12.3 s Normal 9.4 - 1 2.5 second(s) [facility] Auto Coag Comment on above: Interpretive [...] the same coagulation reagent and instrumentation as [facility]. Currently there are no coagulation studies available worldwide for children to 14 days, and no normal ranges. ED Clinical Summaryon 2024 ED Clinical Summary ED Clinical Summary [address] [address] ED Clinical Summary Person Information Name: PILI PARIKH[place] Age: 19 Years : 2005 Sex: Female Language: Surinamese PCP: MODESTA CHAND CNP Marital Status: Single [...] 01/16/2025 20:36:16 01/16/2025 20:36:16 ADDRESS: [address] [facility] [id number] PHYS DOC NOTES: MEDICAL INFORMATION: Prescriptions Given: New Medications [facility]/pharmacy #[id number], [address], [place] [id number], [phone] cyclobenzaprine (cyclobenzaprine 5 mg Tab) 1 Tablets By Mouth 3 times a day for 7 Days. Refills: 0. Medications to Continue Taking That Have Changed [facility]/pharmacy #[id number], [address], [place] [id number], [phone] START: naproxen (naproxen 500 mg Tab) 1 [...] Contusion; Fall Prevention in the Home, Adult, Oz[place]-cu-Bule Follow up: With: Address: When: MODESTA NIKUNJ [address] [place] [phone] [facility] (1) In 3 days 2025 Comments: Call Dr for diagnosis based follow up DIAGNOSIS: Abdominal contusion; Fall down steps; Knee contusion Normal [facility] ED Patient Summaryon 025 ED Patient Summary ED Patient Summary [address] [address] Patient Discharge Instructions Person Information Name: PILI PARIKH Age: 19 Years Arrival Date: 01/16/2025 17:51:31 Discharge Diagnosis: Abdominal contusion; Fall down steps; Knee contusion Primary Care Physician: MODESTA CHAND CNP Provider Information Primary Provider: August Bermudez M.D. [facility] Chief:Rashaad Albrecht PA-C The exam and treatment you received in the Emergency Department were for an urgent problem and are not intended as complete care. It is important that you follow up with a doctor, nurse practitioner, or physician???s real estate assistant for ongoing care. If your symptoms [...] Instructions: With: Address: When: MODESTA CHAND [address] [place] [phone] [email or web address] (1) In 3 days 2025 Comments: Call Dr for diagnosis based follow up In the event that this physician does not participate in your insurance network, please consult with your insurance company to find a nearby participating provider. Patient Education Materials: RICE Therapy for Routine Care of Injuries; Contusion; Fall Prevention in the Home, Adult, Ounx-kx-Iqum A MESSAGE TO ALL PATIENTS REGARDING OPIOIDS PRESCRIPTION OPIOIDS: WHAT YOU NEED TO KNOW Prescription opioids can be used to help relieve rskeiqzm-zz-tikkln pain and are often prescribed following a [...] ??? Visit (more content not included)... Normal [facility] Ethanolon 01-16-2025 Ethanol Lvl <10 Normal <=11 [facility] Comment on above: Performed By: #### 2 [id number] #### [facility] [address] [place] [address] HEMATOLOGYOrdered By: SYSTEM SYSTEM on 01-16-2025 Basophils/100 [...] 01-16-2025 Albumin [Mass/Vol] 5.5 g/dL High 3.3-5.0 [facility] Comment on above: Performed By: #### 2 [id number] #### [facility] [address] [place] [address] Albumin/Globulin (S) [Mass conc ratio] 1.5 Normal 1.1-2.2 [facility] Comment on above: Performed By: #### 2 [id number] #### [facility] [address] [place] [address] ALP [Catalytic activity/Vol] 71 Int._Unit/L Normal 21-98 [facility] Comment on above: Performed By: #### 2 [id number] #### [facility] [address] [place] [address] ALT No additional P-5'-P [Catalytic activity/Vol] 42 Int._Unit/L Normal 6-46 [facility] Comment on above: Performed By: #### 2 [id number] #### [facility] [address] [place] [address] AST [Catalytic activity/Vol] 19 Int._Unit/L Normal 5-43 [facility] Comment on above: Performed By: #### 2 [id number] #### [facility] [address] [place] [address] Bilirubin [Mass/Vol] 1.0 mg/dL Normal 0.0-1.1 [facility] Comment on above: Performed By: #### 2 [id number] #### [facility] [address] [place] [address] Bilirubin.direct [Mass/Vol] 0.2 mg/dL Normal 0.0-0.4 [facility] Comment on above: Performed By: #### 2 [id number] #### [facility] [address] [place] [address] Bilirubin.indirect [Mass or moles/Vol] 0.8 mg/dL Normal 0.1-0.9 [facility] Comment on above: Performed By: #### 2 [id number] #### [facility] [address] [place] [address] Globulin (S) [Mass/Vol] 3.6 g/dL Normal 1.4-4.0 [facility] Comment on above: Performed By: #### 2 [id number] #### [facility] [address] [place] [address] Protein [Mass/Vol] 9.1 g/dL High 6.0-7.8 [facility] Comment on above: Performed By: #### 2 [id number] #### [facility] [address] [place] [address] Lactic Acidon 01-16-2025 Lactic Acid Lvl 1.6 mmol/L Normal 0.5-2.2 [facility] Comment on above: Performed By: #### 2 [id number] #### [facility] [address] [place] [address] Lipase Levelon 01-16-2025 Lipase [Catalytic activity/Vol] 8 U/L Low 13-58 [facility] Comment on above: Performed By: #### 2 [id number] #### [facility] [address] [place] [address] PT & PTTon 01-16-2025 aPTT Coag (PPP) [Time] 23.1 second(s) Low 25.1-36.5 [facility] Comment on above: Result Comment: Para [...] the same coagulation reagent and instrumentation as [facility]. Currently there are no coagulation studies available worldwide for children to 14 days, and no normal ranges. Heparin therapeutic range (represented by Anti-Factor Xa activity of 0.2 - 0.4 U/mL) corresponds to PTT of 56.6 - 109.0 sec. Performed By: #### 1 [id number] #### [facility] [address] [place] [address] INR Coag (PPP) [Relative time] 1.10 {INR} Invalid Interpretation Code [facility] Comment on above: Result Comment: INR results are specifically intended to assess patients stabilized on long-term Anticoagulation therapy suggested INR???s ???Less Intensive Anticoagulation??? 2.0 ??? 3.0 Conventional Range 3.0 ??? 4.5 Performed By: #### 1 [id number] #### [facility] [address] [place] [address] PT Coag (PPP) [Time] 12.3 second(s) Normal 9.4-12.5 [facility] Comment on above: Result Comment: 15 [...] the same coagulation reagent and instrumentation as [facility]. Currently there are no coagulation studies available worldwide for children to 14 days, and no normal ranges. Performed By: #### 1 [id number] #### [facility] [address] [place] [address] Pre-Arrival Noteon Pre-Arrival Note Pre-Arrival Note Pre-Arrival Summary Name: , quincyjermaine Current Date: 01/16/2025 17:51:59 EST Gender: Female Date of : Age: 19 Pre-Arrival Type: EMS ETA: 01/16/2025 18:12:00 EST Primary Care Physician: Presenting Problem: fall Pre-Arrival User: Referring Source: Location: Completion Date/Time: 01/16/2025 17:42:00 [facility] Emergency Department Pre-Hospital Report Form Vital Signs: Pre-Hospital Report: Treatment in Route: Response to Treatment: Misc. Issues: Normal [facility] SEROLOGYOrdered By: Ghazal merida on 01-16-2025 Beta HCG ( test) Ql Negative (01/16/25 7:26 PM) Normal [facility] Man Sero Troponinon 01-16-2025 Troponin HS 3.40 pg/mL Low 10.10-27.1 0 [facility] Comment on above: Result Comment: The 95% CI (Confidence Interval) PPV (Positive Predictive Value) for myocardial infarction in females is 38 pg/mL, in males 51 pg/mL. The results should be used in conjunction with clinical conditions of myocardial infarction. (Access High Sensitivity Troponin I Instructions For Use, Sugar Sundar, June 2018) Performed By: #### 2 [id number] #### [facility] [address] [place] [address] eGFRon 01-16-2025 eGFR 93 mL/min/1.73 m2 Normal >=59 [facility] Comment on above: Performed By: #### 1 [id number] #### [facility] [address] [place] [address] Alanine aminotransferase [En zymatic activity/volume] in Serum or PlasmaOrdered By: Rd Brown on 10-28-2024 ALT [Catalytic activity/Vol] Alanine aminotransferase [Enzymatic activity/volume] in Serum or Plasma 7 [facility] Albumin [Mass/volume] in Ser um or Plasma by Bromocresol green (BCG) dye binding methoOrdered By: Rd Brown on 10-28-2024 Albumin BCG dye [Mass/Vol] Albumin [Mass/volume] in Serum or Plasma by Bromocresol green (BCG) dye binding metho 3.5-5.7 [facility] Alkaline phosphatase [Enzyma tic activity/volume] in Serum or PlasmaOrdered By: Rd Brown on 10-28-2024 ALP [Catalytic activity/Vol] Alkaline phosphatase [Enzymatic activity/volume] in Serum or Plasma 34-104 [facility] Amphetamine Screen Ql (U)Ord ered By: Rd Brown on 10-28-2024 Amphetamines Ql (U) Amphetamines screen Negativ e [facility] Appearance of UrineOrdered B y: Rd Brown on 10-28-2024 Appearance (U) Urine appearance Abnormal Clear [facility] Aspartate aminotransferase [ Enzymatic activity/volume] in Serum or PlasmaOrdered By: Rd Brown on 10-28-2024 AST [Catalytic activity/Vol] Aspartate aminotransferase [Enzymatic activity/volume] in Serum or Plasma 39 [facility] Bacteria [Presence] in Urine by AutomatedOrdered By: Rd Brown on 10-28-2024 Bacteria Auto Ql (U) Bacteria [Presence] in Urine by Automated High None Seen [facility] Barbiturates [Presence] in U rine by Screen methodOrdered By: Rd Brown on 10-28-2024 Barbiturates Screen Ql (U) Barbiturates [Presence] in Urine by Screen method Negative [facility] Basic Metabolic Panelon 12-0 Anion gap [Moles/Vol] 19.5 mmol/L High 6.0-15.0 [facility] Comment on above: Performed By: #### C UU #### [address] Calcium [Mass/Vol] 10.4 mg/dL High 8.6-10.3 [facility] Comment on above: Performed By: #### C UU #### [address] Chloride [Moles/Vol] 94 mmol/L Low 98-107 [facility] Comment on above: Performed By: #### C UU #### [address] CO2 [Moles/Vol] 26.3 mmol/L Normal 21.0-31.0 [facility] Comment on above: Performed By: #### C UU #### [place] [address] [place] Creatinine [Mass/Vol] 0.91 mg/dL Normal 0.60-1.20 [facility] Comment on above: Performed By: #### C UU #### [place] [address] [place] Creatinine Clr Calc Pharmacy 104.62 Normal [facility] Comment on above: Performed By: #### C UU #### [place] [address] [place] GFR/1.73 sq M.predicted MDRD (S/P/Bld) [Vol rate/Area] mL/min/{1.73_m2} Normal [facility] Comment on above: Performed By: #### C UU #### [address] Glucose [Mass/Vol] 91 mg/dL Normal 70-100 [facility] Comment on above: Result Comment: [place] Glucose Reference Range is dependent on time and content of last meal. Glucose of more than 200 mg/dL in a nonstressed, ambulatory subject supports the diagnosis of Diabetes Mellitus. ADA recommended reference range Performed By: #### C UU #### [address] Potassium [Moles/Vol] 2.8 mmol/L Off scale low 3.5-5.1 [facility] Comment on above: Result Comment: Crit ical Result Called to and read back by: MATT BUSH at: 10/28/2024 19:29:56 by:[id number] Performed By: #### C UU #### [address] Sodium [Moles/Vol] 137 mmol/L Normal 136-145 [facility] Comment on above: Performed By: #### C UU #### [address] Urea nitrogen [Mass/Vol] 21 mg/dL Normal 7-25 [facility] Comment on above: Performed By: #### C UU #### [address] Basophils Auto (Bld) [#/Vol] Ordered By: Rd Brown on 10-28-2024 Basophils (Bld) [#/Vol] Automated basophil count 0.0-0.2 [facility] Basophils/100 WBC Auto (Bld) Ordered By: Rd Brown on 10-28-2024 Basophils/100 WBC (Bld) Automated basophil % . [facility] Benzodiazepines Screen Ql (U )Ordered By: Rd Brown on 10-28-2024 Benzodiazepines Ql (U) Benzodiazepines [ Presence] in Urine by Screen method Negative [facility] Benzoylecgonine [Presence] i n Urine by Screen methodOrdered By: Rd Brown on 10-28-2024 Benzoylecgonine Screen Ql (U) Benzoylecgonine [Presence] in Urine by Screen method Negative [facility] Bilirubin Test strip Ql (U)O rdered By: Rd Brown on 10-28-2024 Bilirubin Ql (U) Bilirubin.total [Pre sence] in Urine by Test strip Negative [facility] Bilirubin.direct [Mass/volum e] in Serum or PlasmaOrdered By: Rd Brown on 10-28-2024 Bilirubin.direct [Mass/Vol] Bilirubin.direct [Mass/volume] in Serum or Plasma High 0.03-0.18 [facility] Bilirubin.total [Mass/volume ] in Serum or PlasmaOrdered By: Rd Brown on 10-28-2024 Bilirubin [Mass/Vol] Bilirubin.total [Mass/volume] in Serum or Plasma High 0.3-1.0 [facility] Calcium [Mass/volume] in Ser um or PlasmaOrdered By: Rd Brown on 10-28-2024 Calcium [Mass/Vol] Calcium [Mass/volume ] in Serum or Plasma High 8.6-10.3 [facility] Cannabinoids [Presence] in U rine by Screen methodOrdered By: Rd Brown on 10-28-2024 Cannabinoids Screen Ql (U) Cannabinoids [Presence] in Urine by Screen method High Negative [facility] Comment on above: These are [...] l [Moles/volume] in Serum or Plasma 21.0-31.0 [facility] Chloride [Moles/volume] in [place] or PlasmaOrdered By: Rd Brown on 10-28-2024 Chloride [Moles/Vol] Chloride [Moles/vol ume] in Serum or Plasma Low 98-107 [facility] Color Auto (U)Ordered By: Andrew Brown on 10-28-2024 Color (U) Color of Urine by Auto Abnormal Yellow [facility] Complete Blood Count Auto Di ffon 10-28-2024 Basophils (Bld) [#/Vol] 0.1 10*3/uL Normal 0.0-0.2 [facility] Comment on above: Result Comment: PERF ORMED BY: [place] [address] PATHOLOGIST REGIONAL ENGINEER IDANIA GODOY M.D. Performed By: #### C UU #### [address] Basophils/100 WBC (Bld) 0.7 % Normal . [facility] Comment on above: Performed By: #### C UU #### [address] Eosinophils (Bld) [#/Vol] 0.1 10*3/uL Normal 0.0-0.45 [facility] Comment on above: Performed By: #### C UU #### [address] Eosinophils/100 WBC (Bld) 0.6 % Normal . [facility] Comment on above: Performed By: #### C UU #### [address] Erythrocyte distribution width (RBC) [Ratio] 13.4 % Normal 11.9-15.3 [facility] Comment on above: Performed By: #### C UU #### [address] Hematocrit (Bld) [Volume fraction] 49.2 % High 34.0-46.4 [facility] Comment on above: Performed By: #### C UU #### [address] Hemoglobin (Bld) [Mass/Vol] 16.5 g/dL High 11.8-15.4 [facility] Comment on above: Performed By: #### C UU #### [address] Lymphocytes (Bld) [#/Vol] 2.9 10*3/uL Normal 1.00-4.8 [facility] Comment on above: Performed By: #### C UU #### [address] Lymphocytes/100 WBC (Bld) 14.7 % Normal . [facility] Comment on above: Performed By: #### C UU #### [address] MCH (RBC) [Entitic mass] 28.7 pg Normal 24.7-34.3 [facility] Comment on above: Performed By: #### C UU #### [address] MCV (RBC) [Entitic vol] 85.7 fL Normal 80-100 [facility] Comment on above: Performed By: #### C UU #### [address] Mean Corpuscular HGB Conc 33.5 g/dL Normal 32.0-35.0 [facility] Comment on above: Performed By: #### C UU #### [address] Monocytes (Bld) [#/Vol] 1.2 10*3/uL High 0.0-0.8 [facility] Comment on above: Performed By: #### C UU #### [address] Monocytes/100 WBC (Bld) 16.96 % Normal 0.00-20.00 [facility] Comment on above: Performed By: #### C UU #### [address] Monocytes/100 WBC (Bld) 5.9 % Normal . [facility] Comment on above: Performed By: #### C UU #### [address] [place] [address] [place] Neutrophils (Bld) [#/Vol] 15.5 10*3/uL High 1.8-7.7 [facility] Comment on above: Performed By: #### C UU #### [address] Neutrophils/100 WBC (Bld) 78.1 % Normal . [facility] Comment on above: Performed By: #### C UU #### [address] NRBC% 0.1 /100{WBC} Normal 0-0.5 [facility] Comment on above: Performed By: #### C UU #### [address] Platelet mean volume (Bld) [Entitic vol] 8.4 fL Normal 6.3-10.7 [facility] Comment on above: Performed By: #### C UU #### [place] [address] [place] Platelets (Bld) [#/Vol] 333 10*3/uL Normal 150-450 [facility] Comment on above: Performed By: #### C UU #### [address] RBC (Bld) [#/Vol] 5.74 10*6/uL High 3.60-5.00 [facility] Comment on above: Performed By: #### C UU #### [address] WBC (Bld) [#/Vol] 19.8 10*3/uL High 3.8-11.6 [facility] Comment on above: Performed By: #### C UU #### [address] Creatinine [Mass/volume] in Serum or PlasmaOrdered By: Rd Brown on 10-28-2024 Creatinine [Mass/Vol] Creatinine [Mass/v olume] in Serum or Plasma 0.60-1.20 [facility] Dipstick and Microscopicon 1 12-29-2023 Appearance (U) Turbid Critically abnormal Clear [facility] Comment on above: Order Comment: Name Collection Type:: Clean-Voided Midstream Performed By: #### C UU #### [facility] [address] [place] [address] [place] Bacteria,Urine 1+ High None Seen [facility] Comment on above: Order Comment: Name Collection Type:: Clean-Voided Midstream Performed By: #### C UU #### [place] [address] [place] Bilirubin,Urine Negative Normal Negative [facility] Comment on above: Order Comment: Name Collection Type:: Clean-Voided Midstream Performed By: #### C UU #### [place] [address] [place] Color (U) Light-[place] Critically abnormal Yellow [facility] Comment on above: Order Comment: Name Collection Type:: Clean-Voided Midstream Performed By: #### C UU #### [place] [address] [place] Glucose Ql (U) Normal Normal Normal [facility] Comment on above: Order Comment: Name Collection Type:: Clean-Voided Midstream Performed By: #### C UU #### [place] [address] [place] Hyaline Casts,Urine 9 [LPF] High 0-8 [facility] Comment on above: Order Comment: Name Collection Type:: Clean-Voided Midstream Performed By: #### C UU #### [place] [address] [place] Ketones Ql (U) 3+ High Negative [facility] Comment on above: Order Comment: Name Collection Type:: Clean-Voided Midstream Performed By: #### C UU #### [place] [address] [place] Leukocyte esterase Test strip Ql (U) 3+ High Negative [facility] Comment on above: Order Comment: Name Collection Type:: Clean-Voided Midstream Performed By: #### C UU #### [facility] [address] [place] [address] [place] Mucus,Urine 4+ Critically abnormal [facility] Comment on above: Order Comment: Name Collection Type:: Clean-Voided Midstream Performed By: #### C UU #### [place] [address] [place] Nitrite,Urine Negative Normal Negative [facility] Comment on above: Order Comment: Name Collection Type:: Clean-Voided Midstream Performed By: #### C UU #### [address] Occult Blood,Urine 3+ High Negative [facility] Comment on above: Order Comment: Name Collection Type:: Clean-Voided Midstream Performed By: #### C UU #### [address] pH (U) 8.0 [pH] Normal 5.0-9.0 [facility] Comment on above: Order Comment: Name Collection Type:: Clean-Voided Midstream Performed By: #### C UU #### [place] [address] [place] Protein (U) [Mass/Vol] 100 mg/dL High Negative [facility] Comment on above: Order Comment: Name Collection Type:: Clean-Voided Midstream Performed By: #### C UU #### [place] [address] [place] RBC,Urine Innumerable High 0-4 [facility] Comment on above: Order Comment: Name Collection Type:: Clean-Voided Midstream Performed By: #### C UU #### [place] [address] [place] Specificy [place],Urine 1.029 Normal 1.001-1.03 0 [facility] Comment on above: Order Comment: Name Collection Type:: Clean-Voided Midstream Performed By: #### C UU #### [place] [address] [place] Squamous Epithelial Cell,Urine 1 [HPF] Normal 0-2 [facility] Comment on above: Order Comment: Name Collection Type:: Clean-Voided Midstream Performed By: #### C UU #### [address] Urobilinogen,Urine 6 mg/dL High Normal [facility] Comment on above: Order Comment: Name Collection Type:: Clean-Voided Midstream Performed By: #### C UU #### [address] WBC,Urine 50 [HPF] High 0-4 [facility] Comment on above: Order Comment: Name Collection Type:: Clean-Voided Midstream Performed By: #### C UU #### [address] Drug Screen,Urineon 10-28-20 24 Amphetamine Screen,Urine Negative Normal Negative [facility] Comment on above: Performed By: #### C K, PT, BNP, PTT, CBC, BMP, HS TROP #### [address] Barbiturate Screen,Urine Negative Normal Negative [facility] Comment on above: Performed By: #### C K, PT, BNP, PTT, CBC, BMP, HS TROP #### [address] Benzodiazepines Screen,Urine Negative Normal Negative [facility] Comment on above: Performed By: #### C K, PT, BNP, PTT, CBC, BMP, HS TROP #### [address] Cannabinoid Screen,Urine Positive High Negative [facility] Comment on above: Result Comment: Thes e are unconfirmed results and should not be used for legal purposes. Drug Cut-Off Concentration: AMPH 1000 ng/mL NIKOLAS 200 ng/mL SHRAVAN 200 ng/mL COCM 300 ng/mL OP 300 ng/mL PCP 25 ng/mL THC 20 ng/mL PERFORMED BY: [place] [address] PATHOLOGIST REGIONAL ENGINEER IDANIA GODOY M.D. Performed By: #### C K, PT, BNP, PTT, CBC, BMP, HS TROP #### [facility] [address] Cocaine Screen,Urine Negative Normal Negative [facility] Comment on above: Performed By: #### C K, PT, BNP, PTT, CBC, BMP, HS TROP #### [facility] [address] Opiate Screen,Urine Negative Normal Negative [facility] Comment on above: Performed By: #### C K, PT, BNP, PTT, CBC, BMP, HS TROP #### [facility] [address] Phencyclidine Screen,Urine Negative Normal Negative [facility] Comment on above: Performed By: #### C K, PT, BNP, PTT, CBC, BMP, HS TROP #### [facility] [address] ECG 12 lead ECGon 10-28-2024 ECG 12 lead ECG [facility] [place] [address] [place] [address] Electrocardiograph Report Signed Patient: Pili Parikh MR#: [id number] 1526 : 2005 Acct:[id number] Age/Sex: 19 / F ADM Date: 10/28/24 Loc: ER Room: Type: [facility] ER Attending Dr: Ordering Provider: Rd Brown [...] sinus rhythm Confirmed by Robert BOLANOS DO ([id number]) on 10/28/2024 9:48:18 PM Referred By: Electronically Signed By: Robert BOLANOS DO Transcribed By: MUS Signed By Robert Bolanos DO 12/29/232147 Normal [facility] Eosinophils Auto (Bld) [#/Vo l]Ordered By: Rd Brown on 10-28-2024 Eosinophils (Bld) [#/Vol] Automated eosinophil count 0.0-0.45 [facility] Eosinophils/100 WBC Auto (Bl d)Ordered By: Rd Brown on 10-28-2024 Eosinophils/100 WBC (Bld) Automated eosinophil % . [facility] Epithelial cells.squamous [# /area] in Urine sediment by Automated countOrdered By: Rd Brown on 10-28-2024 Epithelial cells.squamous Auto (Urine sed) [#/Area] Epithelial cells.squamous [#/area] in Urine sediment by Automated count 0-2 [facility] Erythrocyte distribution wid th Auto (RBC) [Ratio]Ordered By: Rd Brown on 10-28-2024 Erythrocyte distribution width (RBC) [Ratio] Erythrocyte distribution width [Ratio] by Automated count 11.9-15.3 [facility] Erythrocytes [#/area] in Uri ne sediment by Automated countOrdered By: Rd Brown on 10-28-2024 RBC Auto (Urine sed) [#/Area] Erythrocytes [#/area] in Urine sediment by Automated count High 0-4 [facility] Globulin Calc (S) [Mass/Vol] Ordered By: Rd Brown on 10-28-2024 Globulin (S) [Mass/Vol] Serum globulin measurement by calculation (mass/volume) [facility] Glucose [Mass/volume] in Ser um or PlasmaOrdered By: Rd Brown on 10-28-2024 Glucose [Mass/Vol] Glucose [Mass/volume ] in Serum or Plasma 70-100 [facility] Comment on above: ADA recommended [...] [Mass/volume] in Urine by Test strip Normal [facility] HCG ( test) [place].rapi d Ql (U)Ordered By: Rd Brown on 10-28-2024 HCG ( test) Ql (U) Urine human chorionic gonadotropin (hCG) detection by immunoassay [facility] HCG,Urineon 10-28-2024 Beta HCG ( test) Ql (U) Negative Normal [facility] Comment on above: Order Comment: Name Collection Type:: Clean-Voided Midstream Result Comment: PERF ORMED BY: [place] [address] PATHOLOGIST REGIONAL ENGINEER IDANIA GODOY M.D. Performed By: #### C UU #### [address] Hematocrit Auto (Bld) [Volum e fraction]Ordered By: Rd Brown on 10-28-2024 Hematocrit (Bld) [Volume fraction] Hematocrit [Volume Fraction] of Blood by Automated count High 34.0-46.4 [facility] Hemoglobin Test strip Ql (U) Ordered By: Rd Brown on 10-28-2024 Hemoglobin Ql (U) Hemoglobin [Presence ] in Urine by Test strip High Negative [facility] Hemoglobin [Mass/volume] in BloodOrdered By: Rd Brown on 10-28-2024 Hemoglobin (Bld) [Mass/Vol] Hemoglobin [Mass/volume] in Blood High 11.8-15.4 [facility] Hepatic Panelon 10-28-2024 Albumin [Mass/Vol] 5.4 g/dL Normal 3.5-5.7 [facility] Comment on above: Performed By: #### C UU #### [address] Albumin/Globulin [Mass ratio] 1.5 {ratio} Normal [facility] Comment on above: Performed By: #### C UU #### [place] [address] [place] ALP [Catalytic activity/Vol] 78 U/L Normal 34-104 [facility] Comment on above: Performed By: #### C UU #### [address] ALT [Catalytic activity/Vol] 48 U/L Normal 7-52 [facility] Comment on above: Performed By: #### C UU #### [address] AST [Catalytic activity/Vol] 30 U/L Normal 13-39 [facility] Comment on above: Performed By: #### C UU #### [address] Bilirubin [Mass/Vol] 1.1 mg/dL High 0.3-1.0 [facility] Comment on above: Performed By: #### C UU #### [address] Bilirubin,Indirect 0.9 mg/dL Normal [facility] Comment on above: Performed By: #### C UU #### [address] Bilirubin.indirect [Mass/Vol] 0.20 mg/dL High 0.03-0.18 [facility] Comment on above: Performed By: #### C UU #### [address] Globulin (S) [Mass/Vol] 3.5 g/dL Normal [facility] Comment on above: Performed By: #### C UU #### [address] Protein [Mass/Vol] 8.9 g/dL Normal 6.4-8.9 [facility] Comment on above: Performed By: #### C UU #### [address] Hyaline casts [#/area] in Ur ine sediment by Automated countOrdered By: Rd Brown on 10-28-2024 Hyaline casts Auto (Urine sed) [#/Area] Hyaline casts [#/area] in Urine sediment by Automated count High 0-8 [facility] Ketones Test strip Ql (U)Ord ered By: Rd Brown on 10-28-2024 Ketones Ql (U) Ketones [Presence] i n Urine by Test strip High Negative [facility] Leukocyte esterase [Presence ] in Urine by Test stripOrdered By: Rd Brown on 10-28-2024 Leukocyte esterase Test strip Ql (U) Leukocyte esterase [Presence] in Urine by Test strip High Negative [facility] Leukocytes [#/area] in Urine sediment by Automated countOrdered By: Rd Brown on 10-28-2024 WBC Auto (Urine sed) [#/Area] Leukocytes [#/area] in Urine sediment by Automated count High 0-4 [facility] Leukocytes [#/volume] correc venkata for nucleated erythrocytes in Blood by Automated counOrdered By: Rd Brown on 10-28-2024 WBC corrected for nucl RBC Auto (Bld) [#/Vol] Leukocytes [#/volume] corrected for nucleated erythrocytes in Blood by Automated coun High 3.8-11.6 [facility] Lipaseon 10-28-2024 Lipase [Catalytic activity/Vol] 19.0 U/L Normal 11.0-82.0 [facility] Comment on above: Result Comment: PERF ORMED BY: [place] [address] PATHOLOGIST REGIONAL ENGINEER IDANIA GODOY M.D. Performed By: #### C UU #### [address] Lipase [Enzymatic activity/v olume] in Serum or PlasmaOrdered By: Rd Brown on 10-28-2024 Lipase [Catalytic activity/Vol] Lipase [Enzymatic activity/volume] in Serum or Plasma 11.0-82.0 [facility] Lymphocytes Auto (Bld) [#/Vo l]Ordered By: Rd Brown on 10-28-2024 Lymphocytes (Bld) [#/Vol] Lymphocytes [#/volume] in Blood by Automated count 1.00-4.8 [facility] Lymphocytes/100 WBC Auto (Bl d)Ordered By: Rd Brown on 10-28-2024 Lymphocytes/100 WBC (Bld) Lymphocytes/100 leukocytes in Blood by Automated count . [facility] MCH Auto (RBC) [Entitic mass ]Ordered By: Rd Brown on 10-28-2024 MCH (RBC) [Entitic mass] MCH [Entitic mass] by Automated count 24.7-34.3 [facility] MCHC Auto (RBC) [Mass/Vol]Or dered By: Rd Brown on 10-28-2024 MCHC (RBC) [Mass/Vol] MCHC [Mass/volume] by Automated count 32.0-35.0 [facility] MCV Auto (RBC) [Entitic vol] Ordered By: Rd Brown on 10-28-2024 MCV (RBC) [Entitic vol] MCV [Entitic volume] by Automated count 80-100 [facility] Monocyte distribution width [Entitic volume] in Blood by AutomatedOrdered By: Rd Brown on 10-28-2024 Monocyte distribution width Auto (Bld) [Entitic vol] Monocyte distribution width [Entitic volume] in Blood by Automated 0.00-20.00 [facility] Monocytes Auto (Bld) [#/Vol] Ordered By: Rd Brown on 10-28-2024 Monocytes (Bld) [#/Vol] Automated blood monocyte count High 0.0-0.8 [facility] Monocytes/100 WBC Auto (Bld) Ordered By: Rd Brown on 10-28-2024 Monocytes/100 WBC (Bld) Automated monocyte % . [facility] Mucus [Presence] in Urine by AutomatedOrdered By: Rd Brown on 10-28-2024 Mucus Auto Ql (U) Mucus [Presence] in Urine by Automated Abnormal [facility] Neutrophils Auto (Bld) [#/Vo l]Ordered By: Rd Brown on 10-28-2024 Neutrophils (Bld) [#/Vol] Neutrophils [#/volume] in Blood by Automated count High 1.8-7.7 [facility] Neutrophils/100 WBC Auto (Bl d)Ordered By: Rd Brown on 10-28-2024 Neutrophils/100 WBC (Bld) Automated neutrophil % . [facility] Nitrite Test strip Ql (U)Ord ered By: Rd Brown on 10-28-2024 Nitrite Ql (U) Nitrite [Presence] i n Urine by Test strip Negative [facility] No Panel InformationOrdered By: Rd Brown on 10-28-2024 Estimated GFR (CKD-EPI) > 60.0 mL/Min [facility] Creatinine Clearance (Chem 104.62 [facility] Nucleated erythrocytes [Pres ence] in Blood by Automated countOrdered By: Rd Brown on 10-28-2024 Nucleated RBC Auto Ql (Bld) Nucleated erythrocytes [Presence] in Blood by Automated count 0-0.5 [facility] Opiates [Presence] in Urine by Screen methodOrdered By: Rd Brown on 10-28-2024 Opiates Screen Ql (U) Opiates [Presence] in Urine by Screen method Negative [facility] Phencyclidine Screen Ql (U)O rdered By: Rd Brown on 10-28-2024 Phencyclidine Ql (U) Phencyclidine [Pres ence] in Urine by Screen method Negative [facility] Platelet mean volume Auto (B ld) [Entitic vol]Ordered By: Rd Brown on 10-28-2024 Platelet mean volume (Bld) [Entitic vol] Platelet mean volume [Entitic volume] in Blood by Automated count 6.3-10.7 [facility] Platelets Auto (Bld) [#/Vol] Ordered By: Rd Brown on 10-28-2024 Platelets (Bld) [#/Vol] Platelets [#/volume] in Blood by Automated count 150-450 [facility] Potassiumon 10-28-2024 Potassium [Moles/Vol] 2.9 mmol/L Off scale low 3.5-5.1 [facility] Comment on above: Result Comment: Crit ical Result Called to and read back by: RYLAN BELL at: 10/28/2024 23:09:11 by:MO PERFORMED BY: [place] [address] PATHOLOGIST REGIONAL ENGINEER IDANIA GODOY M.D. Performed By: #### C UU #### [address] Potassium [Moles/volume] in Serum or PlasmaOrdered By: Rd Brown on 10-28-2024 Potassium [Moles/Vol] Potassium [Moles/v olume] in Serum or Plasma Critically low 3.5-5.1 [facility] Comment on above: Critical Result Call ed to and read back by: RYLAN BELL at: 10/28/2024 23:09:11 by:MO Protein Test strip (U) [Mass /Vol]Ordered By: Rd Brown on 10-28-2024 Protein (U) [Mass/Vol] Protein [Mass/vol ume] in Urine by Test strip High Negative [facility] Protein [Mass/volume] in Ser um or PlasmaOrdered By: Rd Brown on 10-28-2024 Protein [Mass/Vol] Protein [Mass/volume ] in Serum or Plasma 6.4-8.9 [facility] RBC Auto (Bld) [#/Vol]Ordere d By: Rd Brown on 10-28-2024 RBC (Bld) [#/Vol] Erythrocytes [#/volu me] in Blood by Automated count High 3.60-5.00 [facility] Serum or plasma albumin/glob ulin mass ratioOrdered By: Rd Brown on 10-28-2024 Albumin/Globulin [Mass ratio] Serum or plasma albumin/globulin mass ratio [facility] Serum or plasma anion gap de terminationOrdered By: Rd Brown on 10-28-2024 Anion gap [Moles/Vol] Serum or plasma an ion gap determination High 6.0-15.0 [facility] Serum or plasma non-glucuron idated bilirubin measurement (mass/volume)Ordered By: Rd Brown on 10-28-2024 Bilirubin.indirect [Mass/Vol] Serum or plasma non-glucuronidated bilirubin measurement (mass/volume) [facility] Sodium [Moles/volume] in Ser um or PlasmaOrdered By: Rd Brown on 10-28-2024 Sodium [Moles/Vol] Sodium [Moles/volume ] in Serum or Plasma 136-145 [facility] Specific gravity Test strip (U) [Rel density]Ordered By: Rd Brown on 10-28-2024 Specific gravity (U) [Rel density] Specific gravity of Urine by Test strip 1.001-1.03 0 [facility] Urea nitrogen [Mass/volume] in Serum or PlasmaOrdered By: Rd Brown on 10-28-2024 Urea nitrogen [Mass/Vol] Urea nitrogen [Mass/volume] in Serum or Plasma 7-25 [facility] Urine Cultureon 10-28-2024 Bacteria identified Cx Nom (U) 75,000 colonies/ml mixed bacterial skin contaminants 2 Days PERFORMED BY: [facility] [address] [place] [address] PATHOLOGIST REGIONAL ENGINEER IDANIA GODOY M.D. Normal [facility] Comment on above: Performed By: #### C UU #### [address] Urine cultureOrdered By: Mj Brown on 10-28-2024 Bacteria identified Cx Nom (U) Urine culture [facility] Urobilinogen Test strip (U) [Mass/Vol]Ordered By: Rd Brown on 10-28-2024 Urobilinogen (U) [Mass/Vol] Urobilinogen [Mass/volume] in Urine by Test strip High Normal [facility] WBC Auto (Bld) [#/Vol]Ordere d By: Rd Brown on 10-28-2024 WBC (Bld) [#/Vol] Leukocytes [#/volume ] in Blood by Automated count High 3.8-11.6 [facility] pH Test strip (U)Ordered By: Rd Brown on 10-28-2024 pH (U) pH of Urine by Test strip 5.0-9.0 [facility] Activated partial thrombopla stin time (aPTT) in platelet poor plasma by coagulation aOrdered By: Ania Watson on 08-03-2024 aPTT Coag (PPP) [Time] 24.7 s Low 25.1-36.5 [facility] Comment on above: A hematocrit value g reater than 55% may lead to inaccurate results in coagulation testing. Patients having hematocrit values >55% require a special collection tube for coagulation studies. Please contact the laboratory at [phone] for redraw instructions. BNP ser/plasOrdered By: Reji Watson on 08-03-2024 Natriuretic peptide B (Bld) [Mass/Vol] 19.0 pg/mL Normal 5-100 [facility] Comment on above: Order Comment: PT WA NTS TO WAIT UNTIL SHE IS TAKEN BACK INTO ER AND THEY START A IV ON HER,KAH, 2100 Result Comment: PERF ORMED BY: [facility] [address] [place] [address] PATHOLOGIST REGIONAL ENGINEER JIANLAN SUN M.D. Performed By: #### C K, PT, BNP, PTT, CBC, BMP, HS TROP #### [facility] [address] Basic Metabolic Panelon Creatinine Clr Calc Pharmacy 154.09 Normal [facility] Comment on above: Order Comment: PT WA NTS TO WAIT UNTIL SHE IS TAKEN BACK INTO ER AND THEY START A IV ON 2099 Result Comment: PERF ORMED BY: [place] [address] PATHOLOGIST REGIONAL ENGINEER NAY SARKAR M.D. Performed By: #### C K, PT, BNP, PTT, CBC, BMP, HS TROP #### [address] GFR/1.73 sq M.predicted MDRD (S/P/Bld) [Vol rate/Area] mL/min/{1.73_m2} Normal [facility] Comment on above: Order Comment: PT WA NTS TO WAIT UNTIL SHE IS TAKEN BACK INTO ER AND THEY START A IV ON 2099 Performed By: #### C K, PT, BNP, PTT, CBC, BMP, HS TROP #### [address] Calcium [Mass/volume] in Ser um or PlasmaOrdered By: Ania Watson on 08-03-2024 Calcium [Mass/Vol] 9.6 mg/dL Normal 8.6-10.3 [facility] Comment on above: Order Comment: PT WA NTS TO WAIT UNTIL SHE IS TAKEN BACK INTO ER AND THEY START A IV ON HER2099 Performed By: #### C K, PT, BNP, PTT, CBC, BMP, HS TROP #### [facility] [address] [place] [address] [place] Carbon dioxide, total [Moles /volume] in Serum or PlasmaOrdered By: Ania Watson on 08-03-2024 CO2 [Moles/Vol] 18.5 mmol/L Low 21.0-31.0 [facility] Comment on above: Order Comment: PT WA NTS TO WAIT UNTIL SHE IS TAKEN BACK INTO ER AND THEY START A IV ON 2099 Performed By: #### C K, PT, BNP, PTT, CBC, BMP, HS TROP #### [facility] [address] Chloride [Moles/volume] in [place] or PlasmaOrdered By: Ania Watson on 08-03-2024 Chloride [Moles/Vol] 99 mmol/L Normal 98-107 [facility] Comment on above: Order Comment: PT WA NTS TO WAIT UNTIL SHE IS TAKEN BACK INTO ER AND THEY START A IV ON HER2099 Performed By: #### C K, PT, BNP, PTT, CBC, BMP, HS TROP #### [facility] [address] Complete Blood Count Auto Di ffon 08-03-2024 Basophils (Bld) [#/Vol] 0.1 10*3/uL Normal 0.0-0.2 [facility] Comment on above: Order Comment: PT WA NTS TO WAIT UNTIL SHE IS TAKEN BACK INTO ER AND THEY START A IV ON HER2099 Result Comment: PERF ORMED BY: [place] [address] PATHOLOGIST REGIONAL ENGINEER NAY SARKAR M.D. Performed By: #### C K, PT, BNP, PTT, CBC, BMP, HS TROP #### [facility] [address] [place] [address] Basophils/100 WBC (Bld) 0.4 % Normal . [facility] Comment on above: Order Comment: PT WA NTS TO WAIT UNTIL SHE IS TAKEN BACK INTO ER AND THEY START A IV ON HER2099 Performed By: #### C K, PT, BNP, PTT, CBC, BMP, HS TROP #### [facility] [address] Eosinophils (Bld) [#/Vol] 0.2 10*3/uL Normal 0.0-0.45 [facility] Comment on above: Order Comment: PT WA NTS TO WAIT UNTIL SHE IS TAKEN BACK INTO ER AND THEY START A IV ON HER2099 Performed By: #### C K, PT, BNP, PTT, CBC, BMP, HS TROP #### [address] Eosinophils/100 WBC (Bld) 0.9 % Normal . [facility] Comment on above: Order Comment: PT WA NTS TO WAIT UNTIL SHE IS TAKEN BACK INTO ER AND THEY START A IV ON HER,, 2099 Performed By: #### C K, PT, BNP, PTT, CBC, BMP, HS TROP #### [address] Erythrocyte distribution width (RBC) [Ratio] 13.2 % Normal 11.9-15.3 [facility] Comment on above: Order Comment: PT WA NTS TO WAIT UNTIL SHE IS TAKEN BACK INTO ER AND THEY START A IV ON HER,2099 Performed By: #### C K, PT, BNP, PTT, CBC, BMP, HS TROP #### [address] Hematocrit (Bld) [Volume fraction] 43.6 % Normal 34.0-46.4 [facility] Comment on above: Order Comment: PT WA NTS TO WAIT UNTIL SHE IS TAKEN BACK INTO ER AND THEY START A IV ON HER,2099 Performed By: #### C K, PT, BNP, PTT, CBC, BMP, HS TROP #### [address] Hemoglobin (Bld) [Mass/Vol] 14.8 g/dL Normal 11.8-15.4 [facility] Comment on above: Order Comment: PT WA NTS TO WAIT UNTIL SHE IS TAKEN BACK INTO ER AND THEY START A IV ON HER,, 2099 Performed By: #### C K, PT, BNP, PTT, CBC, BMP, HS TROP #### [address] Lymphocytes (Bld) [#/Vol] 2.5 10*3/uL Normal 1.00-4.8 [facility] Comment on above: Order Comment: PT WA NTS TO WAIT UNTIL SHE IS TAKEN BACK INTO ER AND THEY START A IV ON HER,2099 Performed By: #### C K, PT, BNP, PTT, CBC, BMP, HS TROP #### [address] Lymphocytes/100 WBC (Bld) 13.0 % Normal . [facility] Comment on above: Order Comment: PT WA NTS TO WAIT UNTIL SHE IS TAKEN BACK INTO ER AND THEY START A IV ON HER,, 2099 Performed By: #### C K, PT, BNP, PTT, CBC, BMP, HS TROP #### [address] MCH (RBC) [Entitic mass] 28.4 pg Normal 24.7-34.3 [facility] Comment on above: Order Comment: PT WA NTS TO WAIT UNTIL SHE IS TAKEN BACK INTO ER AND THEY START A IV ON HER,, 2099 Performed By: #### C K, PT, BNP, PTT, CBC, BMP, HS TROP #### [address] MCV (RBC) [Entitic vol] 83.8 fL Normal 80-100 [facility] Comment on above: Order Comment: PT WA NTS TO WAIT UNTIL SHE IS TAKEN BACK INTO ER AND THEY START A IV ON HER,, 2099 Performed By: #### C K, PT, BNP, PTT, CBC, BMP, HS TROP #### [address] Mean Corpuscular HGB Conc 33.9 g/dL Normal 32.0-35.0 [facility] Comment on above: Order Comment: PT WA NTS TO WAIT UNTIL SHE IS TAKEN BACK INTO ER AND THEY START A IV ON HER,, 2099 Performed By: #### C K, PT, BNP, PTT, CBC, BMP, HS TROP #### [address] Monocytes (Bld) [#/Vol] 1.6 10*3/uL High 0.0-0.8 [facility] Comment on above: Order Comment: PT WA NTS TO WAIT UNTIL SHE IS TAKEN BACK INTO ER AND THEY START A IV ON HER,, 2099 Performed By: #### C K, PT, BNP, PTT, CBC, BMP, HS TROP #### [address] [place] [address] [place] Monocytes/100 WBC (Bld) 18.96 % Normal 0.00-20.00 [facility] Comment on above: Order Comment: PT WA NTS TO WAIT UNTIL SHE IS TAKEN BACK INTO ER AND THEY START A IV ON HER,, 2099 Performed By: #### C K, PT, BNP, PTT, CBC, BMP, HS TROP #### [facility] [address] [place] [address] [place] Monocytes/100 WBC (Bld) 8.1 % Normal . [facility] Comment on above: Order Comment: PT WA NTS TO WAIT UNTIL SHE IS TAKEN BACK INTO ER AND THEY START A IV ON HER,, 2099 Performed By: #### C K, PT, BNP, PTT, CBC, BMP, HS TROP #### [place] [address] [place] Neutrophils (Bld) [#/Vol] 15.0 10*3/uL High 1.8-7.7 [facility] Comment on above: Order Comment: PT WA NTS TO WAIT UNTIL SHE IS TAKEN BACK INTO ER AND THEY START A IV ON HER,, 2099 Performed By: #### C K, PT, BNP, PTT, CBC, BMP, HS TROP #### [place] [address] [place] Neutrophils/100 WBC (Bld) 77.6 % Normal . [facility] Comment on above: Order Comment: PT WA NTS TO WAIT UNTIL SHE IS TAKEN BACK INTO ER AND THEY START A IV ON HER,, 2099 Performed By: #### C K, PT, BNP, PTT, CBC, BMP, HS TROP #### [place] [address] [place] NRBC% 0.3 /100{WBC} Normal 0-0.5 [facility] Comment on above: Order Comment: PT WA NTS TO WAIT UNTIL SHE IS TAKEN BACK INTO ER AND THEY START A IV ON HER,, 2099 Performed By: #### C K, PT, BNP, PTT, CBC, BMP, HS TROP #### [facility] [address] [place] [address] [place] Platelet mean volume (Bld) [Entitic vol] 8.6 fL Normal 6.3-10.7 [facility] Comment on above: Order Comment: PT WA NTS TO WAIT UNTIL SHE IS TAKEN BACK INTO ER AND THEY START A IV ON HER,2099 Performed By: #### C K, PT, BNP, PTT, CBC, BMP, HS TROP #### [facility] [address] Platelets (Bld) [#/Vol] 282 10*3/uL Normal 150-450 [facility] Comment on above: Order Comment: PT WA NTS TO WAIT UNTIL SHE IS TAKEN BACK INTO ER AND THEY START A IV ON HER,2099 Performed By: #### C K, PT, BNP, PTT, CBC, BMP, HS TROP #### [facility] [address] [place] [address] RBC (Bld) [#/Vol] 5.20 10*6/uL High 3.60-5.00 [facility] Comment on above: Order Comment: PT WA NTS TO WAIT UNTIL SHE IS TAKEN BACK INTO ER AND THEY START A IV ON HER,2099 Performed By: #### C K, PT, BNP, PTT, CBC, BMP, HS TROP #### [facility] [address] [place] [address] WBC (Bld) [#/Vol] 19.4 10*3/uL High 3.8-11.6 [facility] Comment on above: Order Comment: PT WA NTS TO WAIT UNTIL SHE IS TAKEN BACK INTO ER AND THEY START A IV ON HER,, 2099 Performed By: #### C K, PT, BNP, PTT, CBC, BMP, HS TROP #### [address] Creatine kinase [Enzymatic a ctivity/volume] in Serum or PlasmaOrdered By: Ania Watson on 08-03-2024 CK [Catalytic activity/Vol] 33 U/L Normal 30-223 [facility] Comment on above: Order Comment: PT WA NTS TO WAIT UNTIL SHE IS TAKEN BACK INTO ER AND THEY START A IV ON HER,, 2099 Performed By: #### C K, PT, BNP, PTT, CBC, BMP, HS TROP #### [facility] [address] [place] [id number] [facility] Creatinine [Mass/volume] in Serum or PlasmaOrdered By: Ania Watson on 08-03-2024 Creatinine [Mass/Vol] 0.61 mg/dL Normal 0.60-1.[address] [facility] Comment on above: Order Comment: PT WA NTS TO WAIT UNTIL SHE IS TAKEN BACK INTO ER AND THEY START A IV ON HER,KAH, 2100 Performed By: #### C K, PT, BNP, PTT, CBC, BMP, HS TROP #### [facility] [address] [place] [id number] [facility] ECG 12 lead ECGon 08-03-2024 ECG 12 lead ECG [facility] [place] [address] [place] [address] Electrocardiograph Report Signed Patient: Pili Parikh MR#: [id number] : 2005 Acct:[id number] Age/Sex: 19 / F ADM Date: 08/03/24 Loc: ER Room: Type: [facility] ER Attending Dr: Ordering Provider: Ania Watson [...] wave abnormality Confirmed by Ania Watson MD ([id number]) on 08/04/2024 1:34:37 AM Referred By: Electronically Signed By: Ania Watson MD Transcribed By: MUS Signed By Ania Watson MD 06/20 0134 Normal [facility] Glucose [Mass/volume] in Ser um or PlasmaOrdered By: Ania Watson on 08-03-2024 Glucose [Mass/Vol] 91 mg/dL Normal 70-100 [facility] Comment on above: ADA recommended refe rence rangeRandom Glucose Reference Range is dependent on time and content of last meal. Glucose of more than 200 mg/dL in a nonstressed, ambulatory subject supports the diagnosis of Diabetes Mellitus. Order Comment: PT WA NTS TO WAIT UNTIL SHE IS TAKEN BACK INTO ER AND THEY START A IV ON HER,2099 Result Comment: [place] Glucose Reference Range is dependent on time and content of last meal. Glucose of more than 200 mg/dL in a nonstressed, ambulatory subject supports the diagnosis of Diabetes Mellitus. ADA recommended reference range Performed By: #### C K, PT, BNP, PTT, CBC, BMP, HS TROP #### [facility] [address] [place] [address] [facility] INR in Platelet poor plasma by Coagulation assayOrdered By: Ania Watson on 08-03-2024 INR Coag (PPP) [Relative time] 1.2 {INR} Normal [facility] Comment on above: INR Therapeutic [...] BNP, PTT, CBC, BMP, HS TROP #### [facility] [address] [place] [address] [facility] No Panel InformationOrdered By: Ania Watson on 08-03-2024 Estimated GFR (CKD-EPI) > 60.0 mL/Min [facility] Creatinine Clearance (Chem 154.09 [facility] Partial Thromboplastin Timeo n 08-03-2024 aPTT Coag (Bld) [Time] 24.7 s Low 25.1-36.5 [facility] [facility] Comment on above: Order Comment: PT WA NTS TO WAIT UNTIL SHE IS TAKEN BACK INTO ER AND THEY START A IV ON HER,, 2099 Result Comment: A he matocrit value greater than 55% may lead to inaccurate results in coagulation testing. Patients having hematocrit values >55% require a special collection tube for coagulation studies. Please contact the laboratory at [phone] for redraw instructions. PERFORMED BY: [place] [address] PATHOLOGIST REGIONAL ENGINEER NAY SARKAR M.D. Performed By: #### C K, PT, BNP, PTT, CBC, BMP, HS TROP #### [facility] [address] [place], [place] [id number] [facility] Potassium [Moles/volume] in Serum or PlasmaOrdered By: Ania Watson on 08-03-2024 Potassium [Moles/Vol] 3.5 mmol/L Normal 3.5-5.[address] [facility] Comment on above: Hemolysis is present [...] BNP, PTT, CBC, BMP, HS TROP #### [facility] [address] [place] [address] [facility] Prothrombin time (PT)Ordered By: Ania Watson on 08-03-2024 PT Coag (PPP) [Time] 13.3 s High 9.0-12.9 [facility] Comment on above: A hematocrit value g reater than 55% may lead to inaccurate results in coagulation testing. Patients having hematocrit values >55% require a special collection tube for coagulation studies. Please contact the laboratory at [phone] for redraw instructions. Order Comment: PT WA NTS TO WAIT UNTIL SHE IS TAKEN BACK INTO ER AND THEY START A IV ON HER,KAH, 2100 Result Comment: A he matocrit value greater than 55% may lead to inaccurate results in coagulation testing. Patients having hematocrit values >55% require a special collection tube for coagulation studies. Please contact the laboratory at [phone] for redraw instructions. Performed By: #### C K, PT, BNP, PTT, CBC, BMP, HS TROP #### [facility] [address] Serum or plasma anion gap de terminationOrdered By: Ania Watson on 08-03-2024 Anion gap [Moles/Vol] 20.0 mmol/L High 6.0-15.0 [facility] Comment on above: Order Comment: PT WA NTS TO WAIT UNTIL SHE IS TAKEN BACK INTO ER AND THEY START A IV ON HER,2099 Performed By: #### C K, PT, BNP, PTT, CBC, BMP, HS TROP #### [facility] [address] [place] [address] Sodium [Moles/volume] in Ser um or PlasmaOrdered By: Ania Watson on 08-03-2024 Sodium [Moles/Vol] 134 mmol/L Low 136-145 [facility] Comment on above: Order Comment: PT WA NTS TO WAIT UNTIL SHE IS TAKEN BACK INTO ER AND THEY START A IV ON HER,2099 Performed By: #### C K, PT, BNP, PTT, CBC, BMP, HS TROP #### [facility] [address] [place] [address] Troponin I High Sensitivityo n 08-03-2024 Troponin I High Sensitivity 7.0 pg/mL Normal 0.0-15.0 [facility] Comment on above: Order Comment: PT WA NTS TO WAIT UNTIL SHE IS TAKEN BACK INTO ER AND THEY START A IV ON HER,2099 Result Comment: PERF ORMED BY: [address] [place] [address] PATHOLOGIST REGIONAL ENGINEER NAY SARKAR M.D. Performed By: #### C K, PT, BNP, PTT, CBC, BMP, HS TROP #### [address] Troponin I.cardiac [Mass/vol ume] in Serum or Plasma by Detection limit <= 0.01 ng/Ordered By: Ania Watson on 08-03-2024 Troponin I.cardiac DL <= 0.01 ng/mL [Mass/Vol] 7.0 pg/mL 0.0-15.0 [facility] Urea nitrogen [Mass/volume] in Serum or PlasmaOrdered By: Ania Watson on 08-03-2024 Urea nitrogen [Mass/Vol] 20 mg/dL Normal 7-25 [facility] Comment on above: Order Comment: PT WA NTS TO WAIT UNTIL SHE IS TAKEN BACK INTO ER AND THEY START A IV ON HER,KAH, 2100 Performed By: #### C K, PT, BNP, PTT, CBC, BMP, HS TROP #### [facility] [address] B hCG Qualon 08-01-2024 Beta HCG ( test) Ql Negative Normal [facility] Comment on above: Performed By: #### 2 [id number] #### [facility] [address] [place] [address] BMPon 08-01-2024 Anion gap [Moles/Vol] 14 mmol/L Normal 6-16 [facility] Comment on above: Performed By: #### 2 [id number] #### [facility] [address] [place] [address] Calcium [Mass/Vol] 9.7 mg/dL Normal 8.9-11.1 [facility] Comment on above: Performed By: #### 2 [id number] #### [facility] [address] [place] [address] Chloride [Moles/Vol] 102 mmol/L Normal 101-111 [facility] Comment on above: Performed By: #### 2 [id number] #### [facility] [address] [place] [address] CO2 [Moles/Vol] 24 mmol/L Normal 21-31 [facility] Comment on above: Performed By: #### 2 [id number] #### [facility] [address] [place] [address] Creatinine [Mass/Vol] 0.7 mg/dL Normal 0.5-1.3 [facility] Comment on above: Performed By: #### 2 [id number] #### [facility] [address] [place] [address] Glucose [Mass/Vol] 96 mg/dL Normal 55-199 [facility] Comment on above: Performed By: #### 2 [id number] #### [facility] [address] [place] [address] Potassium [Moles/Vol] 3.3 mmol/L Low 3.5-5.3 [facility] Comment on above: Performed By: #### 2 [id number] #### [facility] [address] [place] [address] Sodium [Moles/Vol] 137 mmol/L Normal 135-145 [facility] Comment on above: Performed By: #### 2 488338 #### [facility] [address] [place] [address] Urea nitrogen [Mass/Vol] 18 mg/dL Normal 5-21 [facility] Comment on above: Performed By: #### 2 [id number] #### [facility] [address] [place] [address] Urea nitrogen/Creatinine [Mass ratio] 26 No Units High 10-20 [facility] Comment on above: Performed By: #### 2 [id number] #### [facility] [address] [place] [address] CBC w/ Auto Diffon 4 Basophils/100 WBC (Bld) 0.3 % Normal 0.0-2.0 [facility] Comment on above: Performed By: #### 2 [id number] #### [facility] [address] [place] [address] Basophils/Leukocytes Auto (Bld) [Pure # fraction] 0.1 E9/L Normal 0.0-0.2 [facility] Comment on above: Performed By: #### 2 [id number] #### [facility] [address] [place] [address] Eosinophils (Bld) [#/Vol] 0.1 E9/L Normal 0.0-0.5 [facility] Comment on above: Performed By: #### 2 [id number] #### [facility] [address] [place] [address] Eosinophils/100 WBC (Bld) 0.4 % Normal 0.0-8.0 [facility] Comment on above: Performed By: #### 2 046693 #### [facility] [address] [place] [address] Erythrocyte distribution width (RBC) [Ratio] 13.3 % Normal 10.9-14.2 [facility] Comment on above: Performed By: #### 2 [id number] #### [facility] [address] [place] [address] Hematocrit (Bld) [Volume fraction] 43.9 % Normal 34.0-46.0 [facility] Comment on above: Performed By: #### 2 051018 #### [facility] [address] [place] [address] Hemoglobin (Bld) [Mass/Vol] 14.5 g/dL Normal 12.0-16.0 [facility] Comment on above: Performed By: #### 2 599299 #### [facility] [address] [place] [address] Lymphocytes (Bld) [#/Vol] 2.3 E9/L Normal 1.0-4.0 [facility] Comment on above: Performed By: #### 2 453147 #### [facility] [address] [place] [address] Lymphocytes/100 WBC (Bld) 13.7 % Low 14.0-50.0 [facility] Comment on above: Performed By: #### 2 028463 #### [facility] [address] [place] [address] MCH (RBC) [Entitic mass] 28.3 pg Normal 27.0-34.0 [facility] Comment on above: Performed By: #### 2 760302 #### [facility] [address] [place] [address] MCHC (RBC) [Mass/Vol] 33.0 g/dL Normal 31.4-36.0 [facility] Comment on above: Performed By: #### 2 954770 #### [facility] [address] [place] [address] MCV (RBC) [Entitic vol] 85.8 fL Normal 80.0-100.0 [facility] Comment on above: Performed By: #### 2 807390 #### [facility] [address] [place] [address] Monocytes (Bld) [#/Vol] 1.2 E9/L High 0.2-1.0 [facility] Comment on above: Performed By: #### 2 960489 #### [facility] [address] [place] [address] Neutrophils (Bld) [#/Vol] 13.1 E9/L High 2.0-7.5 [facility] Comment on above: Performed By: #### 2 990845 #### [facility] [address] [place] [address] Neutrophils/100 WBC (Bld) 78.5 % High 36.0-75.0 [facility] Comment on above: Performed By: #### 2 261007 #### [facility] [address] [place] [address] Platelet mean volume (Bld) [Entitic vol] 8.2 fL Normal 6.4-10.8 [facility] Comment on above: Performed By: #### 2 652952 #### [facility] [address] [place] [address] Platelets (Bld) [#/Vol] 246.0 E9/L Normal 150.0-500. 0 [facility] Comment on above: Performed By: #### 2 461084 #### [facility] [address] [place] [address] RBC (Bld) [#/Vol] 5.1 E12/L Normal 4.3-5.9 [facility] Comment on above: Performed By: #### 2 937171 #### [facility] [address] [place] [address] WBC corrected for nucl RBC Auto (Bld) [#/Vol] 16.7 E9/L High 4.0-11.0 [facility] Comment on above: Result Comment: Sarahi pheral smear review performed. Performed By: #### 2 [id number] #### [facility] [address] [place] [address] ED Clinical Summaryon 2023 ED Clinical Summary ED Clinical Summary [address] [address] ED Clinical Summary Person Information Name: PILI PARIKH/[facility] Age: 19 Years : 2005 Sex: Female Language: Surinamese PCP: MODESTA CHAND CNP Marital Status: Single [...] 12:09:48 08/01/2024 12:09:48 08/01/2024 12:09:48 ADDRESS: [address] [facility] [id number] PHYS DOC NOTES: MEDICAL INFORMATION: Prescriptions Given: New Medications [facility]/pharmacy #[id number], [address], [place] [id number], [phone] potassium chloride (potassium chloride 20 mEq ER [...] Follow up: With: Address: When: MODESTA CHAND [address] [place] [address] [phone] Business (1) In 3 days 08/04/2024 Comments: Make sure to fill the prescriptions that was prescribed from [place]. Fill the new prescription for potassium. Follow-up with your primary doctor as discussed. Return to the emergency room if your vomiting recurs, abdominal pain recurs or any new symptoms. DIAGNOSIS: 1:Vomiting and diarrhea; 2:Hypokalemia; 3:Leukocytosis; Diarrhea, unspecified Normal [facility] ED Note-Physicianon 08-01-20 ED Note-Physician ED Note-Physician Basic Information Time Seen: August Bermudez M.D. 08/01/2024 09:27 Chief Complaint just left [place] [facility], seen multiple times for n/v lightheaded. hx cyclic vomiting, state its not that. has medication at [facility] but wanted to come here instead [...] any sick contact. The patient was at [facility] and they did send medication to [facility] however she feels she is dehydrated. [...] and Complexity of Problems Differential Diagnosis: [] [facility] Data External documents reviewed: [] My EKG [...] day(s), # 4 tab(s), Refills(s) 0, Pharmacy: [facility]/pharmacy #[id number], 157, cm, 08/01/24 9:34:00 EDT, [...] Disposition Dis (more content not included)... Normal [facility] Comment on above: Result Comment: Elec tronically Signed By: August Bermudez M.D.\.br\Date and Time Signed: 08/01/24 11:58 EDT ED Patient Summaryon 024 ED Patient Summary ED Patient Summary [place] [id number] Patient Discharge Instructions Person Information Name: PILI PARIKH Age: 19 Years Arrival Date: 08/01/2024 09:23:00 Discharge Diagnosis: 1:Vomiting and diarrhea; 2:Hypokalemia; 3:Leukocytosis; Diarrhea, unspecified Primary Care Physician: MODESTA CHAND CNP Provider Information Primary Provider: August Bermudez M.D. [facility] Chief:None The exam and treatment you received in the Emergency Department were for an urgent problem and are not intended as complete care. It is important that you follow up with a doctor, nurse practitioner, or physician?s real estate assistant for ongoing care. If your symptoms [...] With: Address: When: MODESTA CHAND [address] [place] [phone] Business (1) In 3 days 08/04/2024 Comments: Make sure to fill the prescriptions that was prescribed from [place]. Fill the new prescription for potassium. Follow-up [...] opioids can be used to help relieve yoyuadln-kq-tnggyj pain and are often prescribed following a [...] the to (more content not included)... Normal [facility] Hep Func Panelon 08-01-2024 Albumin [Mass/Vol] 5.1 g/dL High 3.3-5.0 [facility] Comment on above: Performed By: #### 2 [id number] #### [facility] [address] [place] [address] Albumin/Globulin (S) [Mass conc ratio] 1.7 Normal 1.1-2.2 [facility] Comment on above: Performed By: #### 2 [id number] #### [facility] [address] [place] [address] ALP [Catalytic activity/Vol] 75 Int._Unit/L Normal 21-98 [facility] Comment on above: Performed By: #### 2 [id number] #### [facility] [address] [place] [address] ALT No additional P-5'-P [Catalytic activity/Vol] 45 Int._Unit/L Normal 6-46 [facility] Comment on above: Performed By: #### 2 [id number] #### [facility] [address] [place] [address] AST [Catalytic activity/Vol] 25 Int._Unit/L Normal 5-43 [facility] Comment on above: Performed By: #### 2 640337 #### [facility] [address] [place] [address] Bilirubin [Mass/Vol] 0.9 mg/dL Normal 0.0-1.1 [facility] Comment on above: Performed By: #### 2 027919 #### [facility] [address] [place] [address] Bilirubin.direct [Mass/Vol] 0.1 mg/dL Normal 0.0-0.4 [facility] Comment on above: Performed By: #### 2 139074 #### [facility] [address] [place] [address] Bilirubin.indirect [Mass or moles/Vol] 0.8 mg/dL Normal 0.1-0.9 [facility] Comment on above: Performed By: #### 2 464714 #### [facility] [address] [place] [address] Globulin (S) [Mass/Vol] 3.0 g/dL Normal 1.4-4.0 [facility] Comment on above: Performed By: #### 2 896285 #### [facility] [address] [place] [address] Protein [Mass/Vol] 8.1 g/dL High 6.0-7.8 [facility] Comment on above: Performed By: #### 2 871774 #### [facility] [address] [place] [address] Lipase Levelon 08-01-2024 Lipase [Catalytic activity/Vol] 27 U/L Normal 13-58 [facility] Comment on above: Performed By: #### 2 945903 #### [facility] [address] [place] [address] Magnesiumon 08-01-2024 Magnesium [Mass/Vol] 2.2 mg/dL Normal 1.3-2.4 [facility] Comment on above: Performed By: #### 2 133914 #### [facility] [address] [place] [address] PT & PTTon 08-01-2024 aPTT Coag (PPP) [Time] 31.2 second(s) Normal 25.1-36.5 [facility] Comment on above: Result Comment: Para [...] the same coagulation reagent and instrumentation as [facility]. Currently there are no coagulation studies available worldwide for children to 14 days, and no normal ranges. Heparin therapeutic range (represented by Anti-Factor Xa activity of 0.2 - 0.4 U/mL) corresponds to PTT of 56.6 - 109.0 sec. Performed By: #### 1 [id number] #### [facility] [address] [place] [address] INR Coag (PPP) [Relative time] 1.11 {INR} Invalid Interpretation Code [facility] Comment on above: Result Comment: INR results are specifically intended to assess patients stabilized on long-term Anticoagulation therapy suggested INR?s ?Less Intensive Anticoagulation? 2.0 ? 3.0 Conventional Range 3.0 ? 4.5 Performed By: #### 1 [id number] #### [facility] [address] [place] [address] PT Coag (PPP) [Time] 12.5 second(s) Normal 9.4-12.5 [facility] Comment on above: Result Comment: 15 [...] the same coagulation reagent and instrumentation as [facility]. Currently there are no coagulation studies available worldwide for children to 14 days, and no normal ranges. Performed By: #### 1 [id number] #### [facility] [address] [place] [address] Troponin 0 Hr.on 08-01-2024 Troponin HS 5.20 pg/mL Low 10.10-27.1 0 [facility] Comment on above: Result Comment: The 95% CI (Confidence Interval) PPV (Positive Predictive Value) for myocardial infarction in females is 38 pg/mL, in males 51 pg/mL. The results should be used in conjunction with clinical conditions of myocardial infarction. (Access High Sensitivity Troponin I Instructions For Use, [place], June 2018) Performed By: #### 1 [id number] #### [facility] [address] [place] [address] eGFRon 08-01-2024 eGFR 126 mL/min/1.73 m2 Normal >=59 [facility] Comment on above: Order Comment: Order added by Discern Expert. Performed By: #### 1 [id number] #### [facility] [address] [place] [address] BMPon 07-30-2024 Anion gap [Moles/Vol] 13 mmol/L Normal 6-16 [facility] Comment on above: Performed By: #### 2 [id number] #### [facility] [address] [place] [address] Calcium [Mass/Vol] 9.4 mg/dL Normal 8.9-11.1 [facility] Comment on above: Performed By: #### 2 895663 #### [facility] [address] [place] [address] Chloride [Moles/Vol] 107 mmol/L Normal 101-111 [facility] Comment on above: Performed By: #### 2 499182 #### [facility] [address] [place] [address] CO2 [Moles/Vol] 25 mmol/L Normal 21-31 [facility] Comment on above: Performed By: #### 2 783014 #### [facility] [address] [place] [address] Creatinine [Mass/Vol] 0.8 mg/dL Normal 0.5-1.3 [facility] Comment on above: Performed By: #### 2 737346 #### [facility] [address] [place] [address] Glucose [Mass/Vol] 89 mg/dL Normal 55-199 [facility] Comment on above: Performed By: #### 2 659209 #### [facility] [address] [place] [address] Potassium [Moles/Vol] 3.6 mmol/L Normal 3.5-5.3 [facility] Comment on above: Performed By: #### 2 611213 #### [facility] [address] [place] [address] Sodium [Moles/Vol] 141 mmol/L Normal 135-145 [facility] Comment on above: Performed By: #### 2 [id number] #### [facility] [address] [place] [address] Urea nitrogen [Mass/Vol] 19 mg/dL Normal 5-21 [facility] Comment on above: Performed By: #### 2 [id number] #### [facility] [address] [place] [address] Urea nitrogen/Creatinine [Mass ratio] 24 No Units High 10-20 [facility] Comment on above: Performed By: #### 2 [id number] #### [facility] [address] [place] [address] CBC w/ Auto Diffon 4 Basophils/100 WBC (Bld) 0.4 % Normal 0.0-2.0 [facility] Comment on above: Performed By: #### 2 150112 #### [facility] [address] [place] [address] Basophils/Leukocytes Auto (Bld) [Pure # fraction] 0.1 E9/L Normal 0.0-0.2 [facility] Comment on above: Performed By: #### 2 694419 #### [facility] [address] [place] [address] Eosinophils (Bld) [#/Vol] 0.1 E9/L Normal 0.0-0.5 [facility] Comment on above: Performed By: #### 2 894261 #### [facility] [address] [place] [address] Eosinophils/100 WBC (Bld) 0.5 % Normal 0.0-8.0 [facility] Comment on above: Performed By: #### 2 064973 #### [facility] [address] [place] [address] Erythrocyte distribution width (RBC) [Ratio] 13.2 % Normal 10.9-14.2 [facility] Comment on above: Performed By: #### 2 [id number] #### [facility] [address] [place] [address] Hematocrit (Bld) [Volume fraction] 39.6 % Normal 34.0-46.0 [facility] Comment on above: Performed By: #### 2 224196 #### [facility] [address] [place] [address] Hemoglobin (Bld) [Mass/Vol] 13.7 g/dL Normal 12.0-16.0 [facility] Comment on above: Performed By: #### 2 170963 #### [facility] [address] [place] [address] Lymphocytes (Bld) [#/Vol] 2.3 E9/L Normal 1.0-4.0 [facility] Comment on above: Performed By: #### 2 [id number] #### [facility] [address] [place] [address] Lymphocytes/100 WBC (Bld) 14.1 % Normal 14.0-50.0 [facility] Comment on above: Performed By: #### 2 [id number] #### [facility] [address] [place] [address] MCH (RBC) [Entitic mass] 29.4 pg Normal 27.0-34.0 [facility] Comment on above: Performed By: #### 2 [id number] #### [facility] [address] [place] [address] MCHC (RBC) [Mass/Vol] 34.5 g/dL Normal 31.4-36.0 [facility] Comment on above: Performed By: #### 2 [id number] #### [facility] [address] [place] [address] MCV (RBC) [Entitic vol] 85.3 fL Normal 80.0-100.0 [facility] Comment on above: Performed By: #### 2 464208 #### [facility] [address] [place] [address] Monocytes (Bld) [#/Vol] 1.2 E9/L High 0.2-1.0 [facility] Comment on above: Performed By: #### 2 024364 #### [facility] [address] [place] [address] Neutrophils (Bld) [#/Vol] 12.6 E9/L High 2.0-7.5 [facility] Comment on above: Performed By: #### 2 740437 #### [facility] [address] [place] [address] Neutrophils/100 WBC (Bld) 77.5 % High 36.0-75.0 [facility] Comment on above: Performed By: #### 2 809403 #### [facility] [address] [place] [address] Platelet 260.0 E9/L Normal 150.0-500. 0 [facility] Comment on above: Performed By: #### 2 099779 #### [facility] [address] [place] [address] Platelet mean volume (Bld) [Entitic vol] 8.1 fL Normal 6.4-10.8 [facility] Comment on above: Performed By: #### 2 [id number] #### [facility] [address] [place] [address] RBC (Bld) [#/Vol] 4.7 E12/L Normal 4.3-5.9 [facility] Comment on above: Performed By: #### 2 [id number] #### [facility] [address] [place] [address] WBC corrected for nucl RBC Auto (Bld) [#/Vol] 16.2 E9/L High 4.0-11.0 [facility] Comment on above: Performed By: #### 2 [id number] #### [facility] [address] [place] [address] CHEMISTRYOrdered By: Manish carpio on 07-30-2024 Albumin [...] 2023 ED Clinical Summary ED Clinical Summary [place] [id number] ED Clinical Summary Person Information [facility]: [facility] Age[facility] 19 Years : 2005 Sex: Female Language: Surinamese PCP: MODESTA ARCHIBALD Marital Status: Single Visit [...] 07/30/2024 22:55:49 07/30/2024 22:55:49 07/30/2024 22:55:49 ADDRESS: [address] [place] [phone] PHYS DOC NOTES: MEDICAL INFORMATION: Prescriptions Given: New Medications [id number], [address], [place] [id number], [phone] ondansetron (Zofran ODT 4 mg Tab-Dis) 1 Tablets By Mouth every 8 hours as needed Nausea/Vomiting. Refills: 0. Medications to Continue Taking That Have Changed [id number], [address], [place] [id number], [phone] START: promethazine (Phenergan 12.5 mg Supp) 1 [...] Follow up: With: Address: When: [place] [address] Business (1) In 3 days 08/02/2024 DIAGNOSIS: AP (abdominal pain); N&V (nausea and vomiting) Normal [facility] ED Note-Physicianon 07-30-20 ED Note-Physician ED [...] and Complexity of Problems Differential Diagnosis: [] [facility] Data External documents reviewed: N/A My EKG [...] # 16 tab(s), Refills(s) 0, Pharmacy: [id number], 157, cm, 07/30/24 19:37:00 EDT, Height/Length Dosing, 96.1, kg, 07/30/24 19:37:00 EDT, Weight Dosing promethazine, 12.5 mg = 1 tab(s), Oral, q8hr, PRN as needed for nausea/vomiting, second line, # 10 tab(s), Refills(s) 0, [id number] 157, cm, 07/30/24 19:37:00 EDT, Height/Length Dosing, 96.1, kg, 07/30/24 19:37:00 EDT, Weight Dosing promethazine, 12.5 mg = 1 supp, Rectal, q8hr, PRN as needed for nausea/vomiting, 3rd line, # 6 EA, Refills(s) 0, [id number] 157, cm, 07/30/24 19:37:00 EDT, [...] Level Saline Lock Insert Medications Administered Given [id number] [F] 1000 mg + GenDil 100 mL, IV Piggyback famotidine 10 mg/mL IV Lisa, 20 mg, IV Push NS 1000 ml Bolus, 1000 mL, IV [id number] [F] 12.5 mg + Sodium Chloride 0.9% IV Lisa 50 mL [F] 50 mL, IV Piggyback Disposition Plan Discharge Prescription List Prescriptions Phenergan 12.5 mg Supp, 12.5 mg= 1 supp, Rectal, q8hr, PRN promethazine 12.5 mg oral tablet, 12.5 mg= 1 tab(s), Oral, q8hr, PRN Zofran ODT 4 mg Tab-Dis, 4 mg= 1 tab(s), Or (more content not included)... Normal [facility] Comment on above: Result Comment: Elec tronically Signed By: Dustin Villalobos DO\.br\Date and Time Signed: 07/30/24 22:50 EDT ED Patient Summaryon 024 ED Patient Summary ED Patient Summary [place] [id number] Patient Discharge Instructions Person Information Name: PILI PARIKH Age: 19 Years Arrival Date: 07/30/2024 19:26:13 Discharge Diagnosis: AP (abdominal pain); N&V (nausea and vomiting) Primary Care Physician: MODESTA ARCHIBALD Provider Information Primary Provider: Dustin Villalobos DO [facility] Chief:None The exam and treatment you received in the Emergency Department were for an urgent problem and are not intended as complete care. It is important that you follow up with a doctor, nurse practitioner, or physician?s real estate assistant for ongoing care. If your symptoms [...] Follow-up Instructions: With: Address: When: FAMILIA CHAND [facility] [address] [address] Business (1) In 3 days 08/02/2024 In the event that this physician does not participate in your insurance network, please consult with your insurance company to find a nearby participating provider. 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 Normal [facility] HEMATOLOGYOrdered By: SYSTEM SYSTEM on 07-30-2024 [...] 07-30-2024 Albumin [Mass/Vol] 4.7 g/dL Normal 3.3-5.0 [facility] Comment on above: Performed By: #### 2 [id number] #### [facility] [address] [place] [address] Albumin/Globulin (S) [Mass conc ratio] 1.7 Normal 1.1-2.2 [facility] Comment on above: Performed By: #### 2 028168 #### [facility] [address] [place] [address] ALP [Catalytic activity/Vol] 73 Int._Unit/L Normal 21-98 [facility] Comment on above: Performed By: #### 2 304148 #### [facility] [address] [place] [address] ALT No additional P-5'-P [Catalytic activity/Vol] 46 Int._Unit/L Normal 6-46 [facility] Comment on above: Performed By: #### 2 404269 #### [facility] [address] [place] [address] AST [Catalytic activity/Vol] 24 Int._Unit/L Normal 5-43 [facility] Comment on above: Performed By: #### 2 374104 #### [facility] [address] [place] [address] Bilirubin [Mass/Vol] 0.7 mg/dL Normal 0.0-1.1 [facility] Comment on above: Performed By: #### 2 131136 #### [facility] [address] [place] [address] Bilirubin.direct [Mass/Vol] 0.1 mg/dL Normal 0.0-0.4 [facility] Comment on above: Performed By: #### 2 789116 #### [facility] [address] [place] [address] Bilirubin.indirect [Mass or moles/Vol] 0.6 mg/dL Normal 0.1-0.9 [facility] Comment on above: Performed By: #### 2 234101 #### [facility] [address] [place] [address] Globulin (S) [Mass/Vol] 2.8 g/dL Normal 1.4-4.0 [facility] Comment on above: Performed By: #### 2 330084 #### [facility] [address] [place] [address] Protein [Mass/Vol] 7.5 g/dL Normal 6.0-7.8 [facility] Comment on above: Performed By: #### 2 642932 #### [facility] [address] [place] [address] Lipase Levelon 07-30-2024 Lipase [Catalytic activity/Vol] 10 U/L Low 13-58 [facility] Comment on above: Performed By: #### 2 053847 #### [facility] [address] [place] [address] Magnesiumon 07-30-2024 Magnesium [Mass/Vol] 2.2 mg/dL Normal 1.3-2.4 [facility] Comment on above: Performed By: #### 2 668896 #### [facility] [address] [place] [address] eGFRon 07-30-2024 eGFR 108 mL/min/1.73 m2 Normal >=59 [facility] Comment on above: Order Comment: Order added by Discern Expert. Performed By: #### 1 [id number] #### [facility] [address] [place] [address] Alanine aminotransferase [En zymatic activity/volume] in Serum or PlasmaOrdered By: Femi Benitez on 03-18-2024 ALT [Catalytic activity/Vol] 25 U/L 7-52 [facility] Albumin [Mass/volume] in Ser um or Plasma by Bromocresol green (BCG) dye binding methoOrdered By: Femi Benitez on 03-18-2024 Albumin BCG dye [Mass/Vol] 5.3 g/dL 3.5-5.7 [facility] Alkaline phosphatase [Enzyma tic activity/volume] in Serum or PlasmaOrdered By: Femi Benitez on 03-18-2024 ALP [Catalytic activity/Vol] 82 U/L 34-104 [facility] Aspartate aminotransferase [ Enzymatic activity/volume] in Serum or PlasmaOrdered By: Femi Benitez on 03-18-2024 AST [Catalytic activity/Vol] 23 U/L 13-39 [facility] Basophils Auto (Bld) [#/Vol] Ordered By: Femi Benitez on 03-18-2024 Basophils (Bld) [#/Vol] 0.1 10*3/uL 0.0-0.2 [facility] Basophils/100 WBC Auto (Bld) Ordered By: Femi Benitez on 03-18-2024 Basophils/100 WBC (Bld) 0.4 % . [facility] Bilirubin.total [Mass/volume ] in Serum or PlasmaOrdered By: Femi Benitez on 03-18-2024 Bilirubin [Mass/Vol] 0.9 mg/dL 0.3-1.0 [facility] Calcium [Mass/volume] in Ser um or PlasmaOrdered By: Femi Benitez on 03-18-2024 Calcium [Mass/Vol] 10.4 mg/dL 8.6-10.3 [facility] Carbon dioxide, total [Moles /volume] in Serum or PlasmaOrdered By: Femi Benitez on 03-18-2024 CO2 [Moles/Vol] 18.4 mmol/L 21.0-31.0 [facility] Chloride [Moles/volume] in S [place] or PlasmaOrdered By: Femi Benitez on 03-18-2024 Chloride [Moles/Vol] 94 mmol/L 98-107 [facility] Choriogonadotropin.beta subu nit [Units/volume] in Serum or PlasmaOrdered By: Femi Benitez on 03-18-2024 HCG.beta subunit Qn Negative [facility] Creatinine [Mass/volume] in Serum or PlasmaOrdered By: Femi Benitez on 03-18-2024 Creatinine [Mass/Vol] 0.80 mg/dL 0.60-1.[address] [facility] Eosinophils Auto (Bld) [#/Vo l]Ordered By: Femi Benitez on 03-18-2024 Eosinophils (Bld) [#/Vol] 0.4 10*3/uL 0.0-0.45 [facility] Eosinophils/100 WBC Auto (Bl d)Ordered By: Femi Benitez on 03-18-2024 Eosinophils/100 WBC (Bld) 2.3 % . [facility] Erythrocyte distribution wid th Auto (RBC) [Ratio]Ordered By: Femi Benitez on 03-18-2024 Erythrocyte distribution width (RBC) [Ratio] 14.3 % 11.9-15.3 [facility] Globulin Calc (S) [Mass/Vol] Ordered By: Femi Benitez on 03-18-2024 Globulin (S) [Mass/Vol] 2.8 g/dL [facility] Glucose [Mass/volume] in Ser um or PlasmaOrdered By: Femi Benitez on 03-18-2024 Glucose [Mass/Vol] 95 mg/dL 70-100 [facility] Comment on above: ADA recommended refe rence rangeRandom Glucose Reference Range is dependent on time and content of last meal. Glucose of more than 200 mg/dL in a nonstressed, ambulatory subject supports the diagnosis of Diabetes Mellitus. Hematocrit Auto (Bld) [Volum e fraction]Ordered By: Femi Benitez on 03-18-2024 Hematocrit (Bld) [Volume fraction] 48.2 % 34.0-46.4 [facility] Hemoglobin [Mass/volume] in BloodOrdered By: Femi Benitez on 03-18-2024 Hemoglobin (Bld) [Mass/Vol] 16.3 g/dL 11.8-15.4 [facility] Leukocytes [#/volume] correc venkata for nucleated erythrocytes in Blood by Automated counOrdered By: Femi Benitez on 03-18-2024 WBC corrected for nucl RBC Auto (Bld) [#/Vol] 18.5 10*3/uL 3.8-11.6 [facility] Lymphocytes Auto (Bld) [#/Vo l]Ordered By: Femi Benitez on 03-18-2024 Lymphocytes (Bld) [#/Vol] 3.9 10*3/uL 1.00-4.8 [facility] Lymphocytes/100 WBC Auto (Bl d)Ordered By: Femi Benitez on 03-18-2024 Lymphocytes/100 WBC (Bld) 20.9 % . [facility] MCH Auto (RBC) [Entitic mass ]Ordered By: Femi Benitez on 03-18-2024 MCH (RBC) [Entitic mass] 28.2 pg 24.7-34.3 [facility] MCHC Auto (RBC) [Mass/Vol]Or dered By: Femi Benitez on 03-18-2024 MCHC (RBC) [Mass/Vol] 33.9 g/dL 32.0-35.[address] [facility] MCV Auto (RBC) [Entitic vol] Ordered By: Femi Benitez on 03-18-2024 MCV (RBC) [Entitic vol] 83.2 fL 80-100 [facility] Monocyte distribution width [Entitic volume] in Blood by AutomatedOrdered By: Femi Benitez on 03-18-2024 Monocyte distribution width Auto (Bld) [Entitic vol] 16.34 % 0.00-20.00 [facility] Monocytes Auto (Bld) [#/Vol] Ordered By: Femi Benitez on 03-18-2024 Monocytes (Bld) [#/Vol] 1.4 10*3/uL 0.0-0.8 [facility] Monocytes/100 WBC Auto (Bld) Ordered By: Femi Benitez on 03-18-2024 Monocytes/100 WBC (Bld) 7.6 % . [facility] Neutrophils Auto (Bld) [#/Vo l]Ordered By: Femi Benitez on 03-18-2024 Neutrophils (Bld) [#/Vol] 12.7 10*3/uL 1.8-7.7 [facility] Neutrophils/100 WBC Auto (Bl d)Ordered By: Femi Benitez on 03-18-2024 Neutrophils/100 WBC (Bld) 68.8 % . [facility] No Panel InformationOrdered By: Femi Benitez on 03-18-2024 Estimated GFR (CKD-EPI) > 60.0 mL/Min [facility] Creatinine Clearance (Chem 120.98 [facility] Nucleated erythrocytes [Pres ence] in Blood by Automated countOrdered By: Femi Benitez on 03-18-2024 Nucleated RBC Auto Ql (Bld) 0.1 /100{WBC} 0-0.5 [facility] Platelet mean volume Auto (B ld) [Entitic vol]Ordered By: Femi Benitez on 03-18-2024 Platelet mean volume (Bld) [Entitic vol] 8.5 fL 6.3-10.7 [facility] Platelets Auto (Bld) [#/Vol] Ordered By: Femi Benitez on 03-18-2024 Platelets (Bld) [#/Vol] 358 10*3/uL 150-450 [facility] Potassium [Moles/volume] in Serum or PlasmaOrdered By: Femi Benitez on 03-18-2024 Potassium [Moles/Vol] See comment 3.5-5.1 [facility] Comment on above: Specimen hemolyzed, redraw requestedResults calledat 2349 on 03/18/24 Protein [Mass/volume] in Ser um or PlasmaOrdered By: Femi Benitez on 03-18-2024 Protein [Mass/Vol] 8.1 g/dL 6.4-8.9 [facility] RBC Auto (Bld) [#/Vol]Ordere d By: Femi Benitez on 03-18-2024 RBC (Bld) [#/Vol] 5.79 10*6/uL 3.60-5.00 [facility] Serum or plasma albumin/glob ulin mass ratioOrdered By: Femi Benitez on 03-18-2024 Albumin/Globulin [Mass ratio] 1.9 {ratio} [facility] Serum or plasma anion gap de terminationOrdered By: Femi Benitez on 03-18-2024 Anion gap [Moles/Vol] [facility] Comment on above: Test not performed Sodium [Moles/volume] in Ser um or PlasmaOrdered By: Femi Benitez on 03-18-2024 Sodium [Moles/Vol] 134 mmol/L 136-145 [facility] Urea nitrogen [Mass/volume] in Serum or PlasmaOrdered By: Femi Benitez on 03-18-2024 Urea nitrogen [Mass/Vol] 27 mg/dL 7-25 [facility] WBC Auto (Bld) [#/Vol]Ordere d By: Femi Benitez on 03-18-2024 WBC (Bld) [#/Vol] 18.5 10*3/uL 3.8-11.6 [facility] CBC w/ Auto Diffon Basophils/100 WBC (Bld) 0.4 % Normal 0.0-2.0 [facility] Comment on above: Performed By: #### 2 876310, 34211195, 0844015, 2692210 ####[facility] [address] [place] [address] Basophils/Leukocytes Auto (Bld) [Pure # fraction] 0.1 E9/L Normal 0.0-0.2 [facility] Comment on above: Performed By: #### 2 755531, 37220134, 8262386, 6014700 ####[facility] [address] [place] [address] Eosinophils (Bld) [#/Vol] 0.0 E9/L Normal 0.0-0.5 [facility] Comment on above: Performed By: #### 2 295135, 99584996, 2453624, 2782444 ####[facility] [address] [place] [address] Eosinophils/100 WBC (Bld) 0.3 % Normal 0.0-8.0 [facility] Comment on above: Performed By: #### 2 139857, 13459441, 1556520, 6401957 ####[place] [address] [place] [address] Erythrocyte distribution width (RBC) [Ratio] 14.1 % Normal 10.9-14.2 [facility] Comment on above: Performed By: #### 2 392352, 36961788, 7638045, 6741605 ####[address] [address] Hematocrit (Bld) [Volume fraction] 44.0 % Normal 34.0-46.0 [facility] Comment on above: Performed By: #### 2 236868, 26539811, 9408251, 3986502 ####[address] [address] Hemoglobin (Bld) [Mass/Vol] 14.4 g/dL Normal 12.0-16.0 [facility] Comment on above: Performed By: #### 2 297206, 43455682, 3987881, 3975815 ####[address] [address] Lymphocytes (Bld) [#/Vol] 2.2 E9/L Normal 1.0-4.0 [facility] Comment on above: Performed By: #### 2 103068, 81337442, 6569335, 5992152 ####[address] [address] Lymphocytes/100 WBC (Bld) 15.8 % Normal 14.0-50.0 [facility] Comment on above: Performed By: #### 2 658079, 57528982, 6230312, 1791133 ####[address] [address] MCH (RBC) [Entitic mass] 27.8 pg Normal 27.0-34.0 [facility] Comment on above: Performed By: #### 2 586037, 33352452, 6170265, 2051696 ####[address] [address] MCHC (RBC) [Mass/Vol] 32.6 g/dL Normal 31.4-36.0 [facility] Comment on above: Performed By: #### 2 327798, 39774791, 6541864, 0679601 ####[facility] [address] [place] [address] MCV (RBC) [Entitic vol] 85.2 fL Normal 80.0-100.0 [facility] Comment on above: Performed By: #### 2 601595, 24512762, 8475414, 9377326 ####[address] [address] Monocytes (Bld) [#/Vol] 1.1 E9/L High 0.2-1.0 [facility] Comment on above: Performed By: #### 2 577615, 77514719, 6931467, 2903391 ####[address] [address] Neutrophils (Bld) [#/Vol] 10.6 E9/L High 2.0-7.5 [facility] Comment on above: Performed By: #### 2 834852, 83868281, 2799244, 7720462 ####[address] [address] Neutrophils/100 WBC (Bld) 75.9 % High 36.0-75.0 [facility] Comment on above: Performed By: #### 2 001887, 08938947, 4983710, 0982350 ####[address] [address] Platelet mean volume (Bld) [Entitic vol] 8.4 fL Normal 6.4-10.8 [facility] Comment on above: Performed By: #### 2 434353, 15518911, 3778315, 5749951 ####[address] [address] Platelets (Bld) [#/Vol] 276.0 E9/L Normal 150.0-500. 0 [facility] Comment on above: Performed By: #### 2 743777, 13136082, 7919073, 2139213 ####[facility] [address] [place] [address] RBC (Bld) [#/Vol] 5.2 E12/L Normal 4.3-5.9 [facility] Comment on above: Performed By: #### 2 211531, 87164590, 8754909, 7050360 ####[facility] [address] [place] [address] WBC corrected for nucl RBC Auto (Bld) [#/Vol] 14.0 E9/L High 4.0-11.0 [facility] Comment on above: Performed By: #### 2 301634, 82845464, 0159675, 9709354 ####[facility] [address] [place] [address] CHEMISTRYOrdered By: SYSTEM SYSTEM on 03-15-2024 Albumin [...] 03-15-2024 Chloride [Moles/Vol] 99 mmol/L Low 101-111 [facility] Comment on above: Performed By: #### 2 481824, 60717055, 0956104, 8770469 ####[facility] [address] [place] [address] Potassium [Moles/Vol] 3.3 mmol/L Low 3.5-5.3 [facility] Comment on above: Performed By: #### 2 934391, 64274534, 1414717, 5577331 ####[facility] [address] [place] [address] Sodium [Moles/Vol] 137 mmol/L Normal 135-145 [facility] Comment on above: Performed By: #### 2 747780, 47065549, 7375119, 1571621 ####[facility] [address] [place] [address] Anion gap [Moles/Vol] 22 mmol/L High 6-16 [facility] Comment on above: Performed By: #### 2 979541, 97335592, 4515233, 0570311 ####[address] [address] CO2 [Moles/Vol] 19 mmol/L Low 21-31 [facility] Comment on above: Performed By: #### 2 410059, 48832439, 1715115, 9979435 ####[address] [address] Albumin [Mass/Vol] 5.0 g/dL Normal 3.3-5.0 [facility] Comment on above: Performed By: #### 2 332496, 95675650, 0308424, 3182683 ####[address] [address] Albumin/Globulin (S) [Mass conc ratio] 1.8 Normal 1.1-2.2 [facility] Comment on above: Performed By: #### 2 121299, 48998485, 2979056, 0078262 ####[address] [address] ALP [Catalytic activity/Vol] 69 Int._Unit/L Normal 21-98 [facility] Comment on above: Performed By: #### 2 444477, 10256633, 5241619, 3945542 ####[address] [address] ALT No additional P-5'-P [Catalytic activity/Vol] 31 Int._Unit/L Normal 6-46 [facility] Comment on above: Performed By: #### 2 568943, 39413913, 3062818, 0509908 ####[address] [address] AST [Catalytic activity/Vol] 19 Int._Unit/L Normal 5-43 [facility] Comment on above: Performed By: #### 2 382398, 50494704, 7021186, 5435327 ####[address] [place] [address] Bilirubin [Mass/Vol] 0.8 mg/dL Normal 0.0-1.1 [facility] Comment on above: Performed By: #### 2 057145, 64790960, 6394241, 7551772 ####[facility] [address] [place] [address] Calcium [Mass/Vol] 10.4 mg/dL Normal 8.9-11.1 [facility] Comment on above: Performed By: #### 2 458355, 09491639, 5498366, 9701668 ####[facility] [address] [place] [address] Creatinine [Mass/Vol] 0.8 mg/dL Normal 0.5-1.3 [facility] Comment on above: Performed By: #### 2 706367, 88913428, 6333069, 9842277 ####[facility] [address] [place] [address] Globulin (S) [Mass/Vol] 2.8 g/dL Normal 1.4-4.0 [facility] Comment on above: Performed By: #### 2 158205, 94834614, 5030345, 6646895 ####[facility] [address] [place] [address] Glucose [Mass/Vol] 86 mg/dL Normal 55-199 [facility] Comment on above: Performed By: #### 2 375961, 14840791, 9732318, 9004231 ####[facility] [address] [place] [address] Protein [Mass/Vol] 7.8 g/dL Normal 6.0-7.8 [facility] Comment on above: Performed By: #### 2 888335, 45583582, 3703900, 6209919 ####[facility] [address] [place] [address] Urea nitrogen [Mass/Vol] 24 mg/dL High 5-21 [facility] Comment on above: Performed By: #### 2 986801, 39956736, 5590462, 4401665 ####[facility] [address] [place] [address] Urea nitrogen/Creatinine [Mass ratio] 30 No Units High 10-20 [facility] Comment on above: Performed By: #### 2 170392, 58953226, 8369640, 3607197 ####[facility] [address] [place] [address] CT Chest w/ Contraston 03-15 CT Chest [...] 300 Contrast amount in ml's: 100 Normal [facility] Consent for Treatmenton 02-26 Consent for Treatment [id number] Normal [facility] Discharge Instructionson Discharge Instructions [id number] Normal [facility] ED Clinical Summaryon 2023 ED Clinical Summary (Inserted Image. Vesta ble to display) [place] [id number] ED Clinical Summary Person Information Name: PILI PARIKH/[facility] Age: 19 Years : 2005 Sex: Female Language: Surinamese PCP: MODESTA ARCHIBALD Marital Status: Single Visit [...] 03/15/2024 13:49:40 03/15/2024 13:49:40 03/15/2024 13:49:40 ADDRESS: [address] [place] [id number] PHYS DOC NOTES: MEDICAL INFORMATION: Prescriptions Given: Medications to Continue with No Changes Other Medications acetaminophen-hydrocodone ([place] 325 mg-5 mg oral tablet) 1 Tablets [...] symptoms. DIAGNOSIS: 1:Nausea and vomiting; 2:Pneumomediastinum Normal [facility] ED Note-Physicianon 03-15-20 24 ED Note-Physician Basic [...] and Complexity of Problems Differential Diagnosis: [] [facility] Data External documents reviewed: [] My EKG [...] Return to (more content not included)... Normal [facility] Comment on above: Result Comment: Elec [...] added (diluted fruit juice). ? Eat bland, acll-li-smaoga foods in small amounts as you are able. These foods include bananas, applesauce, rice, lean meats, toast, and crackers. ? Avoid fluids that contain a lot of sugar or caffeine, such as energy drinks, sports drinks, and soda. ? Avoid alcohol. ? Avoid spicy or fatty foods. General instructions ? Take kjup-lyq-kqvnjgn and prescription medicines only as told by your health care provider. ? Drink enough fluid to keep your urine pale yellow. ? Wash your hands often using soap and water for at least 20 seconds. If soap and water are not available, use hand control electrician. ? Make sure that everyone in your [...] and drinking to prevent dehydration. ? Take cxjb-voy-bnsdxgl and prescription medicines only as told by [...] provider. Document Revised: 05/21/2022 Document Reviewed: 05/21/2022 [employer] Patient Education ? 2022 Valentin Uzhun. Radiology Pneumomediastinum Pneumomediastinum is the presence of [...] marijuana. Spontane (more content not included)... Normal [facility] ED Patient Summaryon 024 ED Patient Summary (Inserted Image. Vesta ble to display) [address] [address] Patient Discharge Instructions Person Information Name: PILI PARIKH Age: 19 Years Arrival Date: 03/15/2024 10:32:10 Discharge Diagnosis: 1:Nausea and vomiting; 2:Pneumomediastinum Primary Care Physician: MODESTA ARCHIBALD Provider Information Primary Provider: August Bermudez M.D. [facility] Chief:None The exam and treatment you received in the Emergency Department were for an urgent problem and are not intended as complete care. It is important that you follow up with a doctor, nurse practitioner, or physician?s real estate assistant for ongoing care. If your symptoms [...] opioids can be used to help relieve ryatuqoq-vz-ffrabr pain and are often prescribed following a [...] be strugg (more content not included)... Normal [facility] HEMATOLOGYOrdered By: SYSTEM SYSTEM on 03-15-2024 [...] 03-15-2024 Magnesium [Mass/Vol] 2.2 mg/dL Normal 1.3-2.4 [facility] Comment on above: Performed By: #### 2 474904, 91438785, 0418646, 9705547 ####[facility] [address] [place] [address] eGFRon 03-15-2024 eGFR 108 mL/min/1.73 m2 Normal >=59 [facility] Comment on above: Order Comment: Order added by Discern Expert. Performed By: #### 2 960604, 27457380, 2457490, 5586776 ####[facility] [address] [place] [address] CT Abdomen/Pelvis w/ Contras ton 03-14-2024 CT [...] Contrast amount in ml's: 130 Normal [facility] CT Chest w/ Contraston 03-14 [...] 300 Contrast amount in ml's: 130 Normal [facility] CT Head or Brain w/o Contras [...] M.D. Transcribed by: KIRA Technologist: RAVEN Normal [facility] CT Spine Cervical w/o Contra ston [...] M.D. Transcribed by: KIRA Technologist: RAVEN Normal [facility] EMS Documentationon 03-14-20 EMS Documentation Please click on link to see report Normal [facility] Comment on above: Result Comment: Miss [...] mGy = na DAP = na Normal [facility] ABO/Rhon 03-13-2024 ABO/Rh Positive Invalid Interpretation Code [facility] Comment on above: Performed By: #### 2 602639, 41143528, 93111422, 49746327 ####[facility] [address] [place] [address] ABO/Rh History Checkon 03-13 ABO/Rh History Check Patient discharged prior Normal [facility] Comment on above: Performed By: #### 2 191168, 15907641, 39646627, 70836498 ####[facility] [address] [place] [address] ABSCon 03-13-2024 ABSC Gel Interp Negative Normal [facility] Comment on above: Performed By: #### 2 558869, 20122625, 68692284, 09000233 ####[facility] [address] [place] [address] B hCG Qualon 03-13-2024 Beta HCG ( test) Ql Negative Normal [facility] Comment on above: Performed By: #### 2 7930199, 1696834, 5124617, 9351228, 9062483, 66710552, 68740459, 4507498, 5227111 ####[facility] [address] [place] [address] BLOOD BANKOrdered By: Scarlet Lindquist on 03-13-2024 ABO/Rh Interp Positive Invalid Interpretation Code [facility] BB Subsection ABSC Gel Interp Negative (03/13/24 6:53 PM) Normal [facility] BB Subsection BMPon 03-13-2024 Anion gap [Moles/Vol] 16 mmol/L Normal 05-13 [facility] Comment on above: Performed By: #### 2 4239306, 0267633, 8902412, 5596572, 5045000, 40575010, 65072311, 0350782, 4544878 ####[facility] [address] [place] [address] Calcium [Mass/Vol] 10.8 mg/dL Normal 8.9-11.1 [facility] Comment on above: Performed By: #### 2 9876944, 4112858, 4791233, 4343174, 8270116, 60532312, 09106798, 3237125, 7645352 ####[facility] [address] [place] [address] Chloride [Moles/Vol] 105 mmol/L Normal 101-111 [facility] Comment on above: Performed By: #### 2 4876062, 7577478, 1390972, 3099946, 2075683, 93743016, 40339609, 2613512, 2280666 ####[facility] [address] [place] [address] CO2 [Moles/Vol] 25 mmol/L Normal 21-31 [facility] Comment on above: Performed By: #### 2 5307931, 6401671, 8479105, 0167376, 7209077, 29865853, 09628781, 2985227, 3527304 ####[facility] [address] [place] [address] Creatinine [Mass/Vol] 0.9 mg/dL Normal 0.5-1.3 [facility] Comment on above: Performed By: #### 2 1146664, 6395666, 3046337, 1919002, 5287518, 30000838, 86021020, 3170768, 8091314 ####[facility] [address] [place] [address] Glucose [Mass/Vol] 100 mg/dL Normal 55-199 [facility] Comment on above: Performed By: #### 2 5231685, 3288581, 9710152, 4592849, 1803714, 17458270, 49407810, 9405013, 2316906 ####[facility] [address] [place] [address] Potassium [Moles/Vol] 3.3 mmol/L Low 3.5-5.3 [facility] Comment on above: Performed By: #### 2 5034277, 0803255, 6101201, 4702619, 3108001, 52280528, 33089425, 4774879, 9809038 ####[facility] [address] [place] [address] Sodium [Moles/Vol] 143 mmol/L Normal 135-145 [facility] Comment on above: Performed By: #### 2 4996414, 2908465, 0586913, 7546479, 9216513, 79825229, 52109730, 5209657, 4427987 ####[facility] [address] [place] [address] Urea nitrogen [Mass/Vol] 24 mg/dL High 5-21 [facility] Comment on above: Performed By: #### 2 7439856, 0737998, 3300069, 4519592, 3672915, 22454841, 64203233, 7697982, 3657033 ####[facility] [address] [place] [address] Urea nitrogen/Creatinine [Mass ratio] 27 No Units High 10-20 [facility] Comment on above: Performed By: #### 2 1459647, 3223259, 8207241, 5861237, 3853923, 82278306, 65775629, 5920457, 7771743 ####[facility] [address] [place] [address] Blood Bank ID#on 03-13-2024 BBID# [id number] Invalid Interpretation Code [facility] Comment on above: Performed By: #### 2 778971, 30287209, 12240689, 14427000 ####[address] [address] CBC w/ Auto Diffon 4 Basophils/100 WBC (Bld) 0.4 % Normal 0.0-2.0 [facility] Comment on above: Performed By: #### 2 8878945, 2062262, 9037399, 1163377, 8361697, 35048088, 02973747, 4321103, 5816804 ####[address] [address] Basophils/Leukocytes Auto (Bld) [Pure # fraction] 0.1 E9/L Normal 0.0-0.2 [facility] Comment on above: Performed By: #### 2 4615791, 3140263, 0824078, 3862998, 5022814, 42364565, 82121081, 6953059, 8722945 ####[address] [address] Eosinophils (Bld) [#/Vol] 0.0 E9/L Normal 0.0-0.5 [facility] Comment on above: Performed By: #### 2 6474061, 0637951, 2063587, 0124387, 0503050, 09924387, 91260396, 9076831, 1854660 ####[address] [address] Eosinophils/100 WBC (Bld) 0.1 % Normal 0.0-8.0 [facility] Comment on above: Performed By: #### 2 2180765, 5254835, 6265052, 3358758, 0689432, 00780619, 38313692, 5707058, 5733852 ####[address] [place] [address] Erythrocyte distribution width (RBC) [Ratio] 14.4 % High 10.9-14.2 [facility] Comment on above: Performed By: #### 2 9636889, 8176620, 3245030, 8216377, 1203391, 43002374, 53736362, 6199836, 0141570 ####[address] [address] Hematocrit (Bld) [Volume fraction] 42.5 % Normal 34.0-46.0 [facility] Comment on above: Performed By: #### 2 9288128, 5789899, 9469422, 9794503, 9097346, 17065783, 56880555, 8040569, 8301935 ####[address] [address] Hemoglobin (Bld) [Mass/Vol] 14.0 g/dL Normal 12.0-16.0 [facility] Comment on above: Performed By: #### 2 5872611, 6478122, 1147777, 2189611, 9201016, 56290701, 99280567, 5876107, 1210938 ####[address] [address] Lymphocytes (Bld) [#/Vol] 2.3 E9/L Normal 1.0-4.0 [facility] Comment on above: Performed By: #### 2 9462756, 8474289, 4860226, 8985249, 7536939, 42663559, 59074932, 6365629, 5630381 ####[address] [address] Lymphocytes/100 WBC (Bld) 11.8 % Low 14.0-50.0 [facility] Comment on above: Performed By: #### 2 6127457, 8090755, 7393562, 0537641, 5480380, 28033817, 58295240, 0409656, 9665751 ####[address] [place] [address] MCH (RBC) [Entitic mass] 27.6 pg Normal 27.0-34.0 [facility] Comment on above: Performed By: #### 2 7648481, 3398006, 5969667, 9600512, 9617267, 68196027, 07374991, 0931376, 9927503 ####[address] [address] MCHC (RBC) [Mass/Vol] 32.9 g/dL Normal 31.4-36.0 [facility] Comment on above: Performed By: #### 2 6607915, 7722401, 6217464, 3260726, 4560253, 44114014, 83644838, 8967835, 9479532 ####[address] [address] MCV (RBC) [Entitic vol] 83.8 fL Normal 80.0-100.0 [facility] Comment on above: Performed By: #### 2 8286051, 6318960, 3145755, 4451977, 9105087, 74649759, 01244626, 9143890, 3588238 ####[address] [address] Monocytes (Bld) [#/Vol] 1.4 E9/L High 0.2-1.0 [facility] Comment on above: Performed By: #### 2 0087857, 3120987, 5422842, 1807114, 2200976, 98069264, 94595017, 2314049, 3075751 ####[address] [address] Neutrophils (Bld) [#/Vol] 15.5 E9/L High 2.0-7.5 [facility] Comment on above: Performed By: #### 2 2755460, 1641095, 9869454, 2854989, 3155124, 37026921, 51756013, 1376559, 9926354 ####[address] [place] [address] Neutrophils/100 WBC (Bld) 80.6 % High 36.0-75.0 [facility] Comment on above: Performed By: #### 2 5065518, 0093088, 0817572, 2627312, 4255733, 60261197, 17574056, 0049756, 5197868 ####[address] [address] Platelet mean volume (Bld) [Entitic vol] 8.4 fL Normal 6.4-10.8 [facility] Comment on above: Performed By: #### 2 9565577, 4745443, 8861175, 8735216, 0284061, 19299056, 14717800, 0584951, 4401683 ####[address] [address] Platelets (Bld) [#/Vol] 356.0 E9/L Normal 150.0-500. 0 [facility] Comment on above: Performed By: #### 2 2815039, 5243209, 4024574, 3935574, 8671475, 64464142, 91672171, 2018572, 9288194 ####[address] [address] RBC (Bld) [#/Vol] 5.1 E12/L Normal 4.3-5.9 [facility] Comment on above: Performed By: #### 2 9643400, 3569396, 2378445, 8145376, 3848287, 77912428, 14345347, 7728158, 5573208 ####[address] [address] WBC corrected for nucl RBC Auto (Bld) [#/Vol] 19.3 E9/L High 4.0-11.0 [facility] Comment on above: Result Comment: Slid e review performed Performed By: #### 2 4849624, 2807581, 1169749, 8221415, 9450578, 26435595, 17635104, 2122451, 2227820 ####[facility] [address] [place] [address] CHEMISTRYOrdered By: SYSTEM SYSTEM on 03-13-2024 Albumin [...] Sensitivity Troponin I Instructions For Use, [place], June 2018) Urea nitrogen [Mass/Vol] 24 mg/dL High 5 - 21 mg/dL [facility] Urea nitrogen/Creatinine [Mass ratio] 27 mg/mg High 10 - 20 [facility] COAGULATIONOrdered By: Jefe Mccain on 03-13-2024 aPTT Coag (PPP) [Time] 32.8 s Normal 25.1 - 36.5 second(s) [facility] Auto Coag Comment on above: Interpretive [...] the same coagulation reagent and instrumentation as [facility]. Currently there are no coagulation studies available worldwide for children to 14 days, and no normal ranges. Heparin therapeutic range (represented by Anti-Factor Xa activity of 0.2 - 0.4 U/mL) corresponds to PTT of 56.6 - 109.0 sec. INR Coag (PPP) [Relative time] 1.11 {INR} Invalid Interpretation Code [facility] Auto Coag Comment on above: Interpretive Data: I NR results are specifically intended to assess patients stabilized on long-term Anticoagulation therapy suggested INR s Less Intensive Anticoagulation 2.0 3.0 Conventional Range 3.0 4.5 PT Coag (PPP) [Time] 12.4 s Normal 9.4 - 1 2.5 second(s) [facility] Auto Coag Comment on above: Interpretive [...] the same coagulation reagent and instrumentation as [facility]. Currently there are no coagulation studies available worldwide for children to 14 days, and no normal ranges. Consent for Treatmenton 02-26 Consent for Treatment [id number]#1.00TIFF Normal [facility] Discharge Instructionson Discharge Instructions [id number]#[id number] Normal [facility] ED Clinical Summaryon 2023 ED Clinical Summary (Inserted Image. Vesta ble to display) [address] [address] ED Clinical Summary Person Information Name: PILI PARIKH/[place] Age: 19 Years : 2005 Sex: Female Language: Surinamese PCP: MODESTA ARCHIBALD Marital Status: Single Visit [...] 03/13/2024 22:27:59 03/13/2024 22:27:59 ADDRESS: [address] [facility] [id number] PHYS DOC NOTES: MEDICAL INFORMATION: Prescriptions Given: New Medications [id number], [address], [place] [id number], [phone] acetaminophen-hydrocodone ([place] 325 mg-5 mg oral tablet) 1 Tablets [...] EDUCATION INFORMATION: Instructions: Nausea and Vomiting, Adult, Wubh-em-Exwr; Muscle Strain, Vhrg-hu-Fgee Follow up: With: Address: When: MODESTA ARCHIBALD [address] [place], [place] [phone] Business (1) In 3 days 03/16/2024 Comments: [...] Back strain; N&V (nausea and vomiting) Normal [facility] ED Note-Physicianon 03-13-20 ED Note-Physician Basic [...] EDT, STA (more content not included)... Normal [facility] Comment on above: Result Comment: Elec [...] ? Low-calorie sports drinks. ? Eat bland, hzpc-hv-jvuecx foods in small amounts as you are able, such as: ? Bananas. ? Applesauce. ? Rice. ? Low-fat (lean) meats. ? [place]. ? Crackers. ? Avoid drinking fluids that have a lot of sugar or caffeine in them. This includes energy drinks, sports drinks, and soda. ? Avoid alcohol. ? Avoid spicy or fatty foods. General instructions ? Take niik-cet-hhgifsd and prescription medicines only as told by your doctor. ? Drink enough fluid to keep your pee (urine) pale yellow. ? Wash your hands often with soap and water for at least 20 seconds. If you cannot use soap and water, use hand control electrician. ? Make sure that everyone in your [...] doctor about eating and drinking. ? Take frog-uvx-tlzfxrj and prescription medicines only as told by your doctor. ? Contact your doctor if your symptoms get worse or you have new symptoms. ? Keep all follow-up visits. This information is not intended to replace advice given to you by your health care provider. Make sure you discuss any questions you have with your health care provider. Document Revised: 05/21/2022 Document Reviewed: 05/21/2022 [employer] Patient Education ? 2022 Valentin Uzhun. Orthopedics Muscle Strain A muscle strain, or [...] your m (more content not included)... Normal [facility] ED Patient Summaryon 024 ED Patient Summary (Inserted Image. Vesta ble to display) [place] [id number] Patient Discharge Instructions Person Information Name: PILI PARIKH Age: 19 Years Arrival Date: 03/13/2024 17:33:02 Discharge Diagnosis: 1:Fall down stairs; Abnormal CT scan, chest; Back strain; N&V (nausea and vomiting) Primary Care Physician: MODESTA ARCHIBALD Provider Information Primary Provider: Femi Roman DO [facility] Chief:Gasper Lang PA-C The exam and treatment you received in the Emergency Department were for an urgent problem and are not intended as complete care. It is important that you follow up with a doctor, nurse practitioner, or physician?s real estate assistant for ongoing care. If your symptoms [...] Follow-up Instructions: With: Address: When: MODESTA [address] [place], [place] [phone] Business (1) In 3 days 03/16/2024 Comments: [...] Patient Education Materials: Nausea and Vomiting, Adult, Pclh-nq-Bqjl; Muscle Strain, Lcme-cu-Fdyd A MESSAGE TO ALL PATIENTS REGARDING OPIOIDS PRESCRIPTION OPIOIDS: WHAT YOU NEED TO KNOW Prescription opioids can be used to help relieve cxaoiwgg-ep-dewfia pain and are often prescribed following a [...] them juan (more content not included)... Normal [facility] ED Traumaon 03-13-2024 ED Trauma [id number]#[id number] Normal [facility] Ethanolon 03-13-2024 Ethanol Lvl <10 Normal <=11 [facility] Comment on above: Performed By: #### 2 927171 ####[facility] [address] [place] [address] HEMATOLOGYOrdered By: SYSTEM SYSTEM on 03-13-2024 Basophils/100 [...] 03-13-2024 Albumin [Mass/Vol] 5.4 g/dL High 3.3-5.0 [facility] Comment on above: Performed By: #### 2 4837358, 7141268, 4491965, 9166563, 4355026, 49698372, 82696399, 7877304, 3604435 ####[facility] [address] [place] [address] Albumin/Globulin (S) [Mass conc ratio] 1.8 Normal 1.1-2.2 [facility] Comment on above: Performed By: #### 2 6260517, 8358687, 3969325, 2985301, 3671603, 28033773, 62252782, 7119113, 5982395 ####[facility] [address] [place] [address] ALP [Catalytic activity/Vol] 82 Int._Unit/L Normal 21-98 [facility] Comment on above: Performed By: #### 2 5073828, 5516511, 6896568, 6950334, 8548963, 09735467, 74776932, 9519097, 1681452 ####[facility] [address] [place] [address] ALT No additional P-5'-P [Catalytic activity/Vol] 44 Int._Unit/L Normal 6-46 [facility] Comment on above: Performed By: #### 2 0199031, 5782176, 0562790, 7586226, 5922734, 86967865, 12709079, 7140320, 3005914 ####[facility] [address] [place] [address] AST [Catalytic activity/Vol] 23 Int._Unit/L Normal 5-43 [facility] Comment on above: Performed By: #### 2 0296444, 7910203, 5373827, 3069964, 3481911, 83200042, 50362702, 1238685, 8000444 ####[facility] [address] [place] [address] Bilirubin [Mass/Vol] 0.8 mg/dL Normal 0.0-1.1 [facility] Comment on above: Performed By: #### 2 6034473, 6734432, 1484850, 9168522, 9990572, 70507380, 98866258, 7730398, 8158730 ####[facility] [address] [place] [address] Bilirubin.direct [Mass/Vol] 0.2 mg/dL Normal 0.0-0.4 [facility] Comment on above: Performed By: #### 2 0605313, 0339857, 9972948, 9560986, 0196841, 12724268, 35578403, 1253420, 0877318 ####[place] [address] Bilirubin.indirect [Mass or moles/Vol] 0.6 mg/dL Normal 0.1-0.9 [facility] Comment on above: Performed By: #### 2 5215530, 0511696, 6963474, 3994470, 3945228, 23543071, 73989452, 0315535, 3999916 ####[address] [address] Globulin (S) [Mass/Vol] 3.0 g/dL Normal 1.4-4.0 [facility] Comment on above: Performed By: #### 2 2621439, 9855457, 2811047, 1025625, 0817404, 00334590, 40110097, 2618912, 5373792 ####[facility] [address] [place] [address] Protein [Mass/Vol] 8.4 g/dL High 6.0-7.8 [facility] Comment on above: Performed By: #### 2 6022838, 5104124, 8358088, 3299829, 6990823, 40415855, 22315842, 3114034, 2152147 ####[address] [address] Lactic Acidon 03-13-2024 Lactic Acid Lvl 1.7 mmol/L Normal 0.5-2.2 [facility] Comment on above: Performed By: #### 2 6930138, 2346742, 1371783, 9131848, 4453440, 95510079, 17457929, 4923831, 9548896 ####[facility] [address] [place] [address] Lipase Levelon 03-13-2024 Lipase [Catalytic activity/Vol] 14 U/L Normal 13-58 [facility] Comment on above: Performed By: #### 2 0668363, 1238971, 0173615, 9777109, 8395538, 80476560, 71545753, 6546628, 2430292 ####[facility] [address] [place] [address] Monitor Recordon 03-13-2024 Monitor Record [id number]#1.00TIFF Normal [facility] Monitor Record [id number]#1.00TIFF Normal [facility] PT & PTTon 03-13-2024 aPTT Coag (PPP) [Time] 32.8 second(s) Normal 25.1-36.5 [facility] Comment on above: Result Comment: Para [...] the same coagulation reagent and instrumentation as [facility]. Currently there are no coagulation studies available worldwide for children to 14 days, and no normal ranges. Heparin therapeutic range (represented by Anti-Factor Xa activity of 0.2 - 0.4 U/mL) corresponds to PTT of 56.6 - 109.0 sec. Performed By: #### 2 7273845, 6348564, 4590464, 2473109, 5541721, 76677084, 53440686, 9221407, 3003765 ####[facility] [address] [place] [address] INR Coag (PPP) [Relative time] 1.11 {INR} Invalid Interpretation Code [facility] Comment on above: Result Comment: INR results are specifically intended to assess patients stabilized on long-term Anticoagulation therapy suggested INR?s ?Less Intensive Anticoagulation? 2.0 ? 3.0 Conventional Range 3.0 ? 4.5 Performed By: #### 2 7956353, 6069322, 1110335, 3975070, 8912699, 27237509, 00606371, 6216374, 8465355 ####[facility] [address] [place] [address] PT Coag (PPP) [Time] 12.4 second(s) Normal 9.4-12.5 [facility] Comment on above: Result Comment: 15 [...] the same coagulation reagent and instrumentation as [facility]. Currently there are no coagulation studies available worldwide for children to 14 days, and no normal ranges. Performed By: #### 2 6571671, 8667810, 4896351, 0220417, 0683160, 77012341, 42549691, 1930257, 2162149 ####[facility] [address] [place] [address] Pre-Arrival Noteon Pre-Arrival Note Pre-Arrival Summary Name: LOS Current Date: 03/13/2024 17:34:24 EDT Gender: Female Date of : Age: 19 Pre-Arrival Type: EMS ETA: 03/13/2024 17:59:00 EDT Primary Care Physician: Presenting Problem: fall down 10 stairs Pre-Arrival User: Payal Robison RN Referring Source: Location: Completion Date/Time: 03/13/2024 17:29:00 [facility] Emergency Department Pre-Hospital Report Form Vital Signs: 127/83; 66; 17; 96%; GCS 15 Pre-Hospital Report: Treatment in Route: C-COLLAR Response to Treatment: Misc. Issues: Normal [facility] Prescriptions/Work Noteson 0 03-13-2024 Prescriptions/Work Notes [id number]#1.00TIFF Normal [facility] RAD - Preliminary Cat Scan R eporton 03-13-2024 RAD - Preliminary Cat Scan Report [id number] Normal [facility] SEROLOGYOrdered By: Virginia Mccain on 03-13-2024 Beta HCG ( test) Ql Negative (03/13/24 6:53 PM) Normal [facility] Man Sero Troponinon 03-13-2024 Troponin 6.10 pg/mL Low 10.10-27.1 0 [facility] Comment on above: Result Comment: The 95% CI (Confidence Interval) PPV (Positive Predictive Value) for myocardial infarction in females is 38 pg/mL, in males 51 pg/mL. The results should be used in conjunction with clinical conditions of myocardial infarction. (Access High Sensitivity Troponin I Instructions For Use, Sugar Sundar, June 2018) Performed By: #### 2 [id number] ####[facility] [address] [place] [address] eGFRon 03-13-2024 eGFR 94 mL/min/1.73 m2 Normal >=59 [facility] Comment on above: Order Comment: qns t o run. phlebotomists notified of recollect by message. [id number] 03/13/2024 18:28:21 EDTOrder added by Discern Expert. Performed By: #### 2 [id number] ####[facility] [address] [place] [address] Amphetamine Screen Ql (U)Ord ered By: Familia Christian on 05-25-2023 Amphetamines Ql (U) Negative Negative [facility] Barbiturates [Presence] in U rine by Screen methodOrdered By: Familia Christian on 05-25-2023 Barbiturates Screen Ql (U) Negative Negative [facility] Benzodiazepines Screen Ql (U )Ordered By: Familia Christian on 05-25-2023 Benzodiazepines Ql (U) Negative Negative [facility] Benzoylecgonine [Presence] i n Urine by Screen methodOrdered By: Familia Christian on 05-25-2023 Benzoylecgonine Screen Ql (U) Negative Negative [facility] Cannabinoids [Presence] in U rine by Screen methodOrdered By: Familia Christian on 05-25-2023 Cannabinoids Screen Ql (U) Positive Negative [facility] Comment on above: These are unconfirme d results and should not be used for legal purposes. Drug Cut-Off Concentration: AMPH 1000 ng/mL NIKOLAS 200 ng/mL SHRAVAN 200 ng/mL COCM 300 ng/mL OP 300 ng/mL PCP 25 ng/mL THC 20 ng/mL HCG ( test) IA.rapi d Ql (U)Ordered By: Familia Christian on 05-25-2023 HCG ( test) Ql (U) Negative [facility] Opiates [Presence] in Urine by Screen methodOrdered By: Familia Christian on 05-25-2023 Opiates Screen Ql (U) Negative Negative [facility] Phencyclidine Screen Ql (U)O rdered By: Familia Christian on 05-25-2023 Phencyclidine Ql (U) Negative Negative [facility] COVID-19 Detected/Not Detect edOrdered By: Modesta Chand on 03-15-2023 SARS-CoV-2 (COVID-19) RNA JANAK+non-probe Ql (Nph) Not detected Not Detecte [facility] Comment on above: This is a duplicate RP2.1 COVID (PCR) result to be used for statistical tracking purpose only. Respiratory pathogens DNA an d RNA panel - Nasopharynx by JANAK with non-probe detectionOrdered By: Modesta Chand on 03-15-2023 Respiratory pathogens DNA and RNA panel JANAK+non-probe (Nph) [facility] Basophils Auto (Bld) [#/Vol] Ordered By: Anette Stout on 01-07-2023 Basophils (Bld) [#/Vol] 0.0 10*3/uL 0.0-0.1 [facility] Basophils/100 WBC Auto (Bld) Ordered By: Anette Stout on 01-07-2023 Basophils/100 WBC (Bld) 0.4 % . [facility] Eosinophils Auto (Bld) [#/Vo l]Ordered By: Anette Stout on 01-07-2023 Eosinophils (Bld) [#/Vol] 0.7 10*3/uL 0.0-0.7 [facility] Eosinophils/100 WBC Auto (Bl d)Ordered By: Anette Stout on 01-07-2023 Eosinophils/100 WBC (Bld) 5.5 % . [facility] Erythrocyte distribution wid th Auto (RBC) [Ratio]Ordered By: Anette Stout on 01-07-2023 Erythrocyte distribution width (RBC) [Ratio] 13.5 % 11.9-15.3 [facility] Estimated glomerular filtrat ion rate (GFR) non- AmericanOrdered By: Anette Stout on 01-07-2023 GFR/1.73 sq M.predicted among non-blacks MDRD (S/P/Bld) [Vol rate/Area] > 60 mL/Min [facility] Hematocrit Auto (Bld) [Volum e fraction]Ordered By: Anette Stout on 01-07-2023 Hematocrit (Bld) [Volume fraction] 41.5 % 36.0-46.0 [facility] Hemoglobin [Mass/volume] in BloodOrdered By: Anette Stout on 01-07-2023 Hemoglobin (Bld) [Mass/Vol] 14.0 g/dL 12.0-16.0 [facility] Leukocytes [#/volume] correc venkata for nucleated erythrocytes in Blood by Automated counOrdered By: Anette Stout on 01-07-2023 WBC corrected for nucl RBC Auto (Bld) [#/Vol] 12.1 10*3/uL 4.5-13.5 [facility] Lymphocytes Auto (Bld) [#/Vo l]Ordered By: Anette Stout on 01-07-2023 Lymphocytes (Bld) [#/Vol] 2.5 10*3/uL 1.20-4.8 [facility] Lymphocytes/100 WBC Auto (Bl d)Ordered By: Anette Stout on 01-07-2023 Lymphocytes/100 WBC (Bld) 20.9 % . [facility] MCH Auto (RBC) [Entitic mass ]Ordered By: Anette Stout on 01-07-2023 MCH (RBC) [Entitic mass] 28.8 pg 25.0-35.0 [facility] MCHC Auto (RBC) [Mass/Vol]Or dered By: Anette Stout on 01-07-2023 MCHC (RBC) [Mass/Vol] 33.7 g/dL 31.0-37.[address] [facility] MCV Auto (RBC) [Entitic vol] Ordered By: Anette Stout on 01-07-2023 MCV (RBC) [Entitic vol] 85.5 fL 78-102 [facility] Monocytes Auto (Bld) [#/Vol] Ordered By: Anette Stout on 01-07-2023 Monocytes (Bld) [#/Vol] 0.9 10*3/uL 0.1-1.00 [facility] Monocytes/100 WBC Auto (Bld) Ordered By: Anette Stout on 01-07-2023 Monocytes/100 WBC (Bld) 7.5 % . [facility] Neutrophils Auto (Bld) [#/Vo l]Ordered By: Anette Stout on 01-07-2023 Neutrophils (Bld) [#/Vol] 8.0 10*3/uL 1.2-7.7 [facility] Neutrophils/100 WBC Auto (Bl d)Ordered By: Anette Stout on 01-07-2023 Neutrophils/100 WBC (Bld) 65.7 % . [facility] No Panel InformationOrdered By: Anette Stout on 01-07-2023 > 60 mL/Min [facility] 113.92 [facility] Nucleated erythrocytes [Pres ence] in Blood by Automated countOrdered By: Anette Stout on 01-07-2023 Nucleated RBC Auto Ql (Bld) 0.1 /100{WBC} 0-0.5 [facility] Platelet mean volume Auto (B ld) [Entitic vol]Ordered By: Anette Stout on 01-07-2023 Platelet mean volume (Bld) [Entitic vol] 8.6 fL 6.3-10.7 [facility] Platelets Auto (Bld) [#/Vol] Ordered By: Anette Stout on 01-07-2023 Platelets (Bld) [#/Vol] 222 10*3/uL 150-450 [facility] RBC Auto (Bld) [#/Vol]Ordere d By: Anette Stout on 01-07-2023 RBC (Bld) [#/Vol] 4.85 10*6/uL 4.10-5.10 [facility] Serum or plasma anion gap de terminationOrdered By: Anette Stout on 01-07-2023 Anion gap [Moles/Vol] N/A [facility] Serum or plasma calcium tammy urement (mass/volume)Ordered By: Anette Stout on 01-07-2023 Calcium [Mass/Vol] 8.5 mg/dL 8.2-10.2 [facility] Serum or plasma chloride judy surement (moles/volume)Ordered By: Anette Stout on 01-07-2023 Chloride [Moles/Vol] 103 mmol/L 95-114 [facility] Serum or plasma creatinine m easurement with calculation of estimated glomerular filtrOrdered By: Anette Stout on 01-07-2023 Creatinine and Glomerular filtration rate.predicted panel (S/P/Bld) 0.77 mg/dL 0.44-1.03 [facility] Serum or plasma glucose tammy urement (mass/volume)Ordered By: Anette Stout on 01-07-2023 Glucose [Mass/Vol] 90 mg/dL 70-100 [facility] Serum or plasma potassium me asurement (moles/volume)Ordered By: Eliana Bautista on 01-07-2023 Potassium [Moles/Vol] 3.2 mmol/L 3.5-5.[address] [facility] Serum or plasma sodium measu rement (moles/volume)Ordered By: Anette Stout on 01-07-2023 Sodium [Moles/Vol] 134 mmol/L 136-146 [facility] Serum or plasma total carbon dioxide measurement (moles/volume)Ordered By: Anette Stout on 01-07-2023 CO2 [Moles/Vol] 23.4 mmol/L 22.0-30.0 [facility] Serum or plasma urea nitroge n measurement (mass/volume)Ordered By: Anette Stout on 01-07-2023 Urea nitrogen [Mass/Vol] 8 mg/dL 9-23 [facility] WBC Auto (Bld) [#/Vol]Ordere d By: Anette Stout on 01-07-2023 WBC (Bld) [#/Vol] 12.1 10*3/uL 4.5-13.5 [facility] Amphetamine Screen Ql (U)Ord ered By: Anette Stout on 01-06-2023 Amphetamines Ql (U) Negative Negative [facility] Automated erythrocytes count in urine sediment (number/area)Ordered By: Rd Brown on 01-06-2023 RBC Auto (Urine sed) [#/Area] None seen [HPF] 0-4 [facility] Automated leukocytes count i n urine sediment (number/area)Ordered By: Rd Brown on 01-06-2023 WBC Auto (Urine sed) [#/Area] 20-49 [HPF] 0-4 [facility] Automated urine hyaline cast s count (number/volume)Ordered By: Rd Brown on 01-06-2023 Hyaline casts Auto (U) [#/Vol] None seen [LPF] 0-1 [facility] Barbiturates [Presence] in U rineOrdered By: Anette Stout on 01-06-2023 Barbiturates Ql (U) Negative Negative [facility] Basophils Auto (Bld) [#/Vol] Ordered By: Rd Brown on 01-06-2023 Basophils (Bld) [#/Vol] 0.0 10*3/uL 0.0-0.1 [facility] Basophils/100 WBC Auto (Bld) Ordered By: Rd Brown on 01-06-2023 Basophils/100 WBC (Bld) 0.3 % . [facility] Benzodiazepines [Presence] i n UrineOrdered By: Anette Stout on 01-06-2023 Benzodiazepines Ql (U) Negative Negative [facility] Bilirubin Test strip Ql (U)O rdered By: Rd Brown on 01-06-2023 Bilirubin Ql (U) Negative Negative [facility] Body fluid albumin measureme nt (mass/volume)Ordered By: Rd Brown on 01-06-2023 Albumin (Body fld) [Mass/Vol] 4.9 g/dL 3.2-5.5 [facility] Cannabinoids [Presence] in U rine by Screen methodOrdered By: Anette Stout on 01-06-2023 Cannabinoids Screen Ql (U) Positive Negative [facility] Casts typing in urine sedime nt by light microscopyOrdered By: Rd Brown on 01-06-2023 Casts LM Nom (Urine sed) None seen [LPF] None Seen [facility] Color Auto (U)Ordered By: Andrew Brown on 01-06-2023 Color (U) Yellow Yellow [facility] Eosinophils Auto (Bld) [#/Vo l]Ordered By: Rd Brown on 01-06-2023 Eosinophils (Bld) [#/Vol] 0.4 10*3/uL 0.0-0.7 [facility] Eosinophils/100 WBC Auto (Bl d)Ordered By: Rd Brown on 01-06-2023 Eosinophils/100 WBC (Bld) 2.3 % . [facility] Erythrocyte distribution wid th Auto (RBC) [Ratio]Ordered By: Rd Brown on 01-06-2023 Erythrocyte distribution width (RBC) [Ratio] 13.5 % 11.9-15.3 [facility] Estimated glomerular filtrat ion rate (GFR) non- AmericanOrdered By: Rd Brown on 01-06-2023 GFR/1.73 sq M.predicted among non-blacks MDRD (S/P/Bld) [Vol rate/Area] > 60 mL/Min [facility] Globulin Calc (S) [Mass/Vol] Ordered By: Rd Brown on 01-06-2023 Globulin (S) [Mass/Vol] 2.9 g/dL [facility] HCG ( test) IA.rapi d Ql (U)Ordered By: Rd Brown on 01-06-2023 HCG ( test) Ql (U) Negative [facility] Hematocrit Auto (Bld) [Volum e fraction]Ordered By: Rd Brown on 01-06-2023 Hematocrit (Bld) [Volume fraction] 48.3 % 36.0-46.0 [facility] Hemoglobin [Mass/volume] in BloodOrdered By: Rd Brown on 01-06-2023 Hemoglobin (Bld) [Mass/Vol] 16.2 g/dL 12.0-16.0 [facility] Ketones Auto test strip (U) [Mass/Vol]Ordered By: Rd Brown on 01-06-2023 Ketones (U) [Mass/Vol] 4+ Negative [facility] Leukocytes [#/volume] correc venkata for nucleated erythrocytes in Blood by Automated counOrdered By: Rd Brown on 01-06-2023 WBC corrected for nucl RBC Auto (Bld) [#/Vol] 17.7 10*3/uL 4.5-13.5 [facility] Lymphocytes Auto (Bld) [#/Vo l]Ordered By: Rd Brown on 01-06-2023 Lymphocytes (Bld) [#/Vol] 3.5 10*3/uL 1.20-4.8 [facility] Lymphocytes/100 WBC Auto (Bl d)Ordered By: Rd Brown on 01-06-2023 Lymphocytes/100 WBC (Bld) 19.9 % . [facility] MCH Auto (RBC) [Entitic mass ]Ordered By: Rd Brown on 01-06-2023 MCH (RBC) [Entitic mass] 28.7 pg 25.0-35.0 [facility] MCHC Auto (RBC) [Mass/Vol]Or dered By: Rd Brown on 01-06-2023 MCHC (RBC) [Mass/Vol] 33.6 g/dL 31.0-37.[address] [facility] MCV Auto (RBC) [Entitic vol] Ordered By: Rd Brown on 01-06-2023 MCV (RBC) [Entitic vol] 85.4 fL 78-102 [facility] Monocyte distribution width [Entitic volume] in Blood by AutomatedOrdered By: Rd Brown on 01-06-2023 Monocyte distribution width Auto (Bld) [Entitic vol] 15.43 % 0.00-20.00 [facility] Monocytes Auto (Bld) [#/Vol] Ordered By: Rd Brown on 01-06-2023 Monocytes (Bld) [#/Vol] 1.3 10*3/uL 0.1-1.00 [facility] Monocytes/100 WBC Auto (Bld) Ordered By: Rd Brown on 01-06-2023 Monocytes/100 WBC (Bld) 7.4 % . [facility] Neutrophils Auto (Bld) [#/Vo l]Ordered By: Rd Brown on 01-06-2023 Neutrophils (Bld) [#/Vol] 12.4 10*3/uL 1.2-7.7 [facility] Neutrophils/100 WBC Auto (Bl d)Ordered By: Rd Brown on 01-06-2023 Neutrophils/100 WBC (Bld) 70.1 % . [facility] Nitrite Test strip Ql (U)Ord ered By: Rd Brown on 01-06-2023 Nitrite Ql (U) Negative Negative [facility] No Panel InformationOrdered By: Anette Stout on 01-06-2023 Negative Negative [facility] No Panel InformationOrdered By: Rd Brown on 01-06-2023 > 60 mL/Min [facility] 31.0 U/L 22-51 [facility] 102.00 [facility] Nucleated erythrocytes [Pres ence] in Blood by Automated countOrdered By: Rd Brown on 01-06-2023 Nucleated RBC Auto Ql (Bld) 0.1 /100{WBC} 0-0.5 [facility] Phencyclidine Screen Ql (U)O rdered By: Anette Stout on 01-06-2023 Phencyclidine Ql (U) Negative Negative [facility] Platelet mean volume Auto (B ld) [Entitic vol]Ordered By: Rd Brown on 01-06-2023 Platelet mean volume (Bld) [Entitic vol] 8.5 fL 6.3-10.7 [facility] Platelets Auto (Bld) [#/Vol] Ordered By: Rd Brown on 01-06-2023 Platelets (Bld) [#/Vol] 296 10*3/uL 150-450 [facility] Protein Auto test strip (U) [Mass/Vol]Ordered By: Rd Brown on 01-06-2023 Protein (U) [Mass/Vol] 100 mg/dL Negative [facility] Protein [Mass/volume] in Ser um or PlasmaOrdered By: Rd Brown on 01-06-2023 Protein [Mass/Vol] 7.8 g/dL 6.1-7.9 [facility] RBC Auto (Bld) [#/Vol]Ordere d By: Rd Brown on 01-06-2023 RBC (Bld) [#/Vol] 5.65 10*6/uL 4.10-5.10 [facility] Serum or plasma alanine florez otransferase measurement without P-5'-P (enzymatic activiOrdered By: Rd Brown on 01-06-2023 ALT No additional P-5'-P [Catalytic activity/Vol] 20 U/L 10-60 [facility] Serum or plasma albumin/glob ulin mass ratioOrdered By: Rd Brown on 01-06-2023 Albumin/Globulin [Mass ratio] 1.7 {ratio} [facility] Serum or plasma alkaline justin sphatase measurement (enzymatic activity/volume)Ordered By: Rd Brown on 01-06-2023 ALP [Catalytic activity/Vol] 66 U/L 32-92 [facility] Serum or plasma anion gap de terminationOrdered By: Rd Brown on 01-06-2023 Anion gap [Moles/Vol] 19.4 mmol/L 6.0-15.0 [facility] Serum or plasma aspartate am inotransferase measurement (enzymatic activity/volume)Ordered By: Rd Brown on 01-06-2023 AST [Catalytic activity/Vol] 20 U/L 10-42 [facility] Serum or plasma calcium tammy urement (mass/volume)Ordered By: Rd Brown on 01-06-2023 Calcium [Mass/Vol] 9.8 mg/dL 8.2-10.2 [facility] Serum or plasma chloride judy surement (moles/volume)Ordered By: Rd Brown on 01-06-2023 Chloride [Moles/Vol] 91 mmol/L 95-114 [facility] Serum or plasma creatinine m easurement with calculation of estimated glomerular filtrOrdered By: Rd Brown on 01-06-2023 Creatinine and Glomerular filtration rate.predicted panel (S/P/Bld) 0.86 mg/dL 0.44-1.03 [facility] Serum or plasma glucose tammy urement (mass/volume)Ordered By: Rd Brown on 01-06-2023 Glucose [Mass/Vol] 80 mg/dL 70-100 [facility] Serum or plasma potassium me asurement (moles/volume)Ordered By: Rd Brown on 01-06-2023 Potassium [Moles/Vol] 2.7 mmol/L 3.5-5.[address] [facility] Serum or plasma sodium measu rement (moles/volume)Ordered By: Rd Brown on 01-06-2023 Sodium [Moles/Vol] 132 mmol/L 136-146 [facility] Serum or plasma total biliru bin measurement (mass/volume)Ordered By: Rd Brown on 01-06-2023 Bilirubin [Mass/Vol] 1.5 mg/dL 0.3-1.2 [facility] Serum or plasma total carbon dioxide measurement (moles/volume)Ordered By: Rd Brown on 01-06-2023 CO2 [Moles/Vol] 24.3 mmol/L 22.0-30.0 [facility] Serum or plasma urea nitroge n measurement (mass/volume)Ordered By: Rd Brown on 01-06-2023 Urea nitrogen [Mass/Vol] 19 mg/dL 9-23 [facility] Specific gravity Auto test s trip (U) [Rel density]Ordered By: Rd Brown on 01-06-2023 Specific gravity (U) [Rel density] 1.027 1.001-1.03 0 [facility] Squamous epithelial cells de tection in urine sediment by light microscopyOrdered By: Rd Brown on 01-06-2023 Epithelial cells.squamous LM Ql (Urine sed) 10-19 [HPF] 0-2 [facility] Troponin I.cardiac [Mass/vol ume] in Serum or Plasma by High sensitivity methodOrdered By: Federico Randolph on 01-06-2023 Troponin I.cardiac High sensitivity method [Mass/Vol] 6 pg/mL 0-15 [facility] Urine bacteria detection by automated methodOrdered By: Rd Brown on 01-06-2023 Bacteria Auto Ql (U) 1+ None Seen [facility] Urine clarity by refractomet ry automatedOrdered By: Rd Brown on 01-06-2023 Clarity Refractometry automated (U) Cloudy Clear [facility] Urine cocaine detectionOrder ed By: Anette Stout on 01-06-2023 Cocaine Ql (U) Negative Negative [facility] Urine glucose measurement by automated test strip (mass/volume)Ordered By: Rd Brown on 01-06-2023 Glucose Auto test strip (U) [Mass/Vol] Normal mg/dL Normal [facility] Urine hemoglobin detection b y automated test stripOrdered By: Rd Brown on 01-06-2023 Hemoglobin Auto test strip Ql (U) 3+ Negative [facility] Urine lactic acid measuremen tOrdered By: Rd Brown on 01-06-2023 Lactate (U) [Moles/Vol] 1.6 mmol/L 0.5-2.2 [facility] Urine leukocyte esterase det ection by automated test stripOrdered By: Rd Brown on 01-06-2023 Leukocyte esterase Auto test strip Ql (U) 2+ Negative [facility] Urobilinogen Auto test strip (U) [Mass/Vol]Ordered By: Rd Brown on 01-06-2023 Urobilinogen (U) [Mass/Vol] Normal mg/dL Normal [facility] WBC Auto (Bld) [#/Vol]Ordere d By: Rd Brown on 01-06-2023 WBC (Bld) [#/Vol] 17.7 10*3/uL 4.5-13.5 [facility] pH Auto test strip (U)Ordere d By: Rd Brown on 01-06-2023 pH (U) 6.5 [pH] 5.0-9.0 [facility] Albumin [Mass/volume] in Ser um or PlasmaOrdered By: Ravi Arguello on 01-02-2023 Albumin [Mass/Vol] 5.0 g/dL 3.2-5.5 [facility] Automated erythrocytes count in urine sediment (number/area)Ordered By: Ravi Arguello on 01-02-2023 RBC Auto (Urine sed) [#/Area] 3-4 [HPF] 0-4 [facility] Automated leukocytes count i n urine sediment (number/area)Ordered By: Ravi Arguello on 01-02-2023 WBC Auto (Urine sed) [#/Area] 50-100 [HPF] 0-4 [facility] Automated urine hyaline cast s count (number/volume)Ordered By: Ravi Arguello on 01-02-2023 Hyaline casts Auto (U) [#/Vol] None seen [LPF] 0-1 [facility] Basophils Auto (Bld) [#/Vol] Ordered By: aRvi Arguello on 01-02-2023 Basophils (Bld) [#/Vol] 0.1 10*3/uL 0.0-0.1 [facility] Basophils/100 WBC Auto (Bld) Ordered By: Ravi Arguello on 01-02-2023 Basophils/100 WBC (Bld) 0.5 % . [facility] Bilirubin Test strip Ql (U)O rdered By: Ravi Arguello on 01-02-2023 Bilirubin Ql (U) Negative Negative [facility] Casts typing in urine sedime nt by light microscopyOrdered By: Ravi Arguello on 01-02-2023 Casts LM Nom (Urine sed) None seen [LPF] None Seen [facility] Color Auto (U)Ordered By: Gisselle Arguello on 01-02-2023 Color (U) Yellow Yellow [facility] Eosinophils Auto (Bld) [#/Vo l]Ordered By: Ravi Arguello on 01-02-2023 Eosinophils (Bld) [#/Vol] 0.0 10*3/uL 0.0-0.7 [facility] Eosinophils/100 WBC Auto (Bl d)Ordered By: Ravi Arguello on 01-02-2023 Eosinophils/100 WBC (Bld) 0.0 % . [facility] Erythrocyte distribution wid th Auto (RBC) [Ratio]Ordered By: Ravi Arguello on 01-02-2023 Erythrocyte distribution width (RBC) [Ratio] 13.9 % 11.9-15.3 [facility] Estimated glomerular filtrat ion rate (GFR) non- AmericanOrdered By: Ravi Arguello on 01-02-2023 GFR/1.73 sq M.predicted among non-blacks MDRD (S/P/Bld) [Vol rate/Area] > 60 mL/Min [facility] Globulin Calc (S) [Mass/Vol] Ordered By: Ravi Arguello on 01-02-2023 Globulin (S) [Mass/Vol] 2.9 g/dL [facility] HCG ( test) IA.rapi d Ql (U)Ordered By: Ravi Arguello on 01-02-2023 HCG ( test) Ql (U) Negative [facility] Hematocrit Auto (Bld) [Volum e fraction]Ordered By: Ravi Arguello on 01-02-2023 Hematocrit (Bld) [Volume fraction] 42.1 % 36.0-46.0 [facility] Hemoglobin [Mass/volume] in BloodOrdered By: Ravi Arguello on 01-02-2023 Hemoglobin (Bld) [Mass/Vol] 14.0 g/dL 12.0-16.0 [facility] Ketones Auto test strip (U) [Mass/Vol]Ordered By: Ravi Arguello on 01-02-2023 Ketones (U) [Mass/Vol] 3+ Negative [facility] Leukocytes [#/volume] correc venkata for nucleated erythrocytes in Blood by Automated counOrdered By: Ravi Arguello on 01-02-2023 WBC corrected for nucl RBC Auto (Bld) [#/Vol] 14.1 10*3/uL 4.5-13.5 [facility] Lymphocytes Auto (Bld) [#/Vo l]Ordered By: Ravi Arguello on 01-02-2023 Lymphocytes (Bld) [#/Vol] 1.4 10*3/uL 1.20-4.8 [facility] Lymphocytes/100 WBC Auto (Bl d)Ordered By: Ravi Arguello on 01-02-2023 Lymphocytes/100 WBC (Bld) 10.1 % . [facility] MCH Auto (RBC) [Entitic mass ]Ordered By: Ravi Arguello on 01-02-2023 MCH (RBC) [Entitic mass] 28.6 pg 25.0-35.0 [facility] MCHC Auto (RBC) [Mass/Vol]Or dered By: Ravi Arguello on 01-02-2023 MCHC (RBC) [Mass/Vol] 33.2 g/dL 31.0-37.[address] [facility] MCV Auto (RBC) [Entitic vol] Ordered By: Ravi Arguello on 01-02-2023 MCV (RBC) [Entitic vol] 86.2 fL 78-102 [facility] Monocyte distribution width [Entitic volume] in Blood by AutomatedOrdered By: Ravi Arguello on 01-02-2023 Monocyte distribution width Auto (Bld) [Entitic vol] 16.52 % 0.00-20.00 [facility] Monocytes Auto (Bld) [#/Vol] Ordered By: Ravi Arguello on 01-02-2023 Monocytes (Bld) [#/Vol] 1.0 10*3/uL 0.1-1.00 [facility] Monocytes/100 WBC Auto (Bld) Ordered By: Ravi Arguello on 01-02-2023 Monocytes/100 WBC (Bld) 7.0 % . [facility] Neutrophils Auto (Bld) [#/Vo l]Ordered By: Ravi Arguello on 01-02-2023 Neutrophils (Bld) [#/Vol] 11.6 10*3/uL 1.2-7.7 [facility] Neutrophils/100 WBC Auto (Bl d)Ordered By: Ravi Arguello on 01-02-2023 Neutrophils/100 WBC (Bld) 82.4 % . [facility] Nitrite Test strip Ql (U)Ord ered By: Ravi Arguello on 01-02-2023 Nitrite Ql (U) Negative Negative [facility] No Panel InformationOrdered By: Ravi Arguello on 01-02-2023 > 60 mL/Min [facility] 29.0 U/L 22-51 [facility] 86.85 [facility] Nucleated erythrocytes [Pres ence] in Blood by Automated countOrdered By: Ravi Arguello on 01-02-2023 Nucleated RBC Auto Ql (Bld) 0.0 /100{WBC} 0-0.5 [facility] Platelet mean volume Auto (B ld) [Entitic vol]Ordered By: Ravi Arguello on 01-02-2023 Platelet mean volume (Bld) [Entitic vol] 8.4 fL 6.3-10.7 [facility] Platelets Auto (Bld) [#/Vol] Ordered By: Ravi Arguello on 01-02-2023 Platelets (Bld) [#/Vol] 299 10*3/uL 150-450 [facility] Protein Auto test strip (U) [Mass/Vol]Ordered By: Ravi Arguello on 01-02-2023 Protein (U) [Mass/Vol] 100 mg/dL Negative [facility] Protein [Mass/volume] in Ser um or PlasmaOrdered By: Ravi Arguello on 01-02-2023 Protein [Mass/Vol] 7.9 g/dL 6.1-7.9 [facility] RBC Auto (Bld) [#/Vol]Ordere d By: Ravi Arguello on 01-02-2023 RBC (Bld) [#/Vol] 4.89 10*6/uL 4.10-5.10 [facility] Serum or plasma alanine florez otransferase measurement without P-5'-P (enzymatic activiOrdered By: Ravi Arguello on 01-02-2023 ALT No additional P-5'-P [Catalytic activity/Vol] 26 U/L 10-60 [facility] Serum or plasma albumin/glob ulin mass ratioOrdered By: Ravi Arguello on 01-02-2023 Albumin/Globulin [Mass ratio] 1.7 {ratio} [facility] Serum or plasma alkaline justin sphatase measurement (enzymatic activity/volume)Ordered By: Ravi Arguello on 01-02-2023 ALP [Catalytic activity/Vol] 60 U/L 32-92 [facility] Serum or plasma anion gap de terminationOrdered By: Ravi Arguello on 01-02-2023 Anion gap [Moles/Vol] 16.4 mmol/L 6.0-15.0 [facility] Serum or plasma aspartate am inotransferase measurement (enzymatic activity/volume)Ordered By: Ravi Arguello on 01-02-2023 AST [Catalytic activity/Vol] 32 U/L 10-42 [facility] Serum or plasma calcium tammy urement (mass/volume)Ordered By: Ravi Arguello on 01-02-2023 Calcium [Mass/Vol] 9.8 mg/dL 8.2-10.2 [facility] Serum or plasma chloride judy surement (moles/volume)Ordered By: Ravi Arguello on 01-02-2023 Chloride [Moles/Vol] 106 mmol/L 95-114 [facility] Serum or plasma creatinine m easurement with calculation of estimated glomerular filtrOrdered By: Ravi Arguello on 01-02-2023 Creatinine and Glomerular filtration rate.predicted panel (S/P/Bld) 1.01 mg/dL 0.44-1.03 [facility] Serum or plasma glucose tammy urement (mass/volume)Ordered By: Ravi Arguello on 01-02-2023 Glucose [Mass/Vol] 123 mg/dL 70-100 [facility] Serum or plasma potassium me asurement (moles/volume)Ordered By: Ravi Arguello on 01-02-2023 Potassium [Moles/Vol] 3.2 mmol/L 3.5-5.[address] [facility] Serum or plasma sodium measu rement (moles/volume)Ordered By: Ravi Arguello on 01-02-2023 Sodium [Moles/Vol] 142 mmol/L 136-146 [facility] Serum or plasma total biliru bin measurement (mass/volume)Ordered By: Ravi Arguello on 01-02-2023 Bilirubin [Mass/Vol] 0.8 mg/dL 0.3-1.2 [facility] Serum or plasma total carbon dioxide measurement (moles/volume)Ordered By: Ravi Arguello on 01-02-2023 CO2 [Moles/Vol] 22.8 mmol/L 22.0-30.0 [facility] Serum or plasma urea nitroge n measurement (mass/volume)Ordered By: Ravi Arguello on 01-02-2023 Urea nitrogen [Mass/Vol] 22 mg/dL 9-23 [facility] Specific gravity Auto test s trip (U) [Rel density]Ordered By: Ravi Arguello on 01-02-2023 Specific gravity (U) [Rel density] 1.036 1.001-1.03 0 [facility] Squamous epithelial cells de tection in urine sediment by light microscopyOrdered By: Ravi Arguello on 01-02-2023 Epithelial cells.squamous LM Ql (Urine sed) Innumerable [HPF] 0-2 [facility] Urine bacteria detection by automated methodOrdered By: Ravi Arguello on 01-02-2023 Bacteria Auto Ql (U) 3+ None Seen [facility] Urine clarity by refractomet ry automatedOrdered By: Ravi Arguello on 01-02-2023 Clarity Refractometry automated (U) Turbid Clear [facility] Urine culture routineOrdered By: Ravi Arguello on 01-02-2023 Bacteria identified Cx Nom (U) [facility] Urine glucose measurement by automated test strip (mass/volume)Ordered By: Ravi Arguello on 01-02-2023 Glucose Auto test strip (U) [Mass/Vol] Normal mg/dL Normal [facility] Urine hemoglobin detection b y automated test stripOrdered By: Ravi Arguello on 01-02-2023 Hemoglobin Auto test strip Ql (U) Negative Negative [facility] Urine leukocyte esterase det ection by automated test stripOrdered By: Ravi Topetegisselle on 01-02-2023 Leukocyte esterase Auto test strip Ql (U) 3+ Negative [facility] Urobilinogen Auto test strip (U) [Mass/Vol]Ordered By: Ravi Topetegisselle on 01-02-2023 Urobilinogen (U) [Mass/Vol] Normal mg/dL Normal [facility] WBC Auto (Bld) [#/Vol]Ordere d By: Ravi Topetegisselle on 01-02-2023 WBC (Bld) [#/Vol] 14.1 10*3/uL 4.5-13.5 [facility] pH Auto test strip (U)Ordere d By: Ravi Saundra on 01-02-2023 pH (U) 6.0 [pH] 5.0-9.0 [facility] CULTURE URINEon 01-01-2023 CULTURE URINE Culture Observations : LIGHT GROWTH OF MIXED GENITAL JORI. NO POTENTIAL PATHOGENS SEEN. Normal [facility] Comment on above: Performed By: #### U RCX #### [facility] [address] [address] [address] Dacia Ackerman Covid-19 PCR ([facility])on SARS-CoV-2 (COVID-19) RNA JANAK+probe Ql (Unsp spec) Not detected Normal NOT DETECTED [facility] Comment on above: Result Comment: When [...] for this test is supported by the [employer] of [employer] and Human Service's declaration that [...] used). Performed By: #### C VDTBH #### [facility] [address] [place] [address] Dr. Dacia Ackerman DRUG SCREEN RAPID (URINE)on 01-01-2023 AMP Negative Normal NEGATIVE [facility] Comment on above: Performed By: #### D RUGRPD #### [facility] [address] [place] [address] Dr. Dacia Ackerman BAR Negative Normal NEGATIVE [facility] Comment on above: Performed By: #### D RUGRPD #### [facility] [address] [place] [address] Dr. Dacia Ackerman BUP Negative Normal NEGATIVE [facility] Comment on above: Performed By: #### D RUGRPD #### [facility] [address] [place] [address] Dr. Dacia Ackerman BZO Negative Normal NEGATIVE [facility] Comment on above: Performed By: #### D RUGRPD #### [facility] [address] [place] [address] Dr. Dacia Ackerman MELINA Negative Normal NEGATIVE [facility] Comment on above: Performed By: #### D RUGRPD #### [facility] [address] [place] [address] Dr. Dacia Ackerman CUT-OFFS SEE BELOW Normal [facility] Comment on above: Result Comment: AMP [...] ng/mL Performed By: #### D RUGRPD #### [facility] [address] [place] [address] Dr. Dacia Ackerman DRUG CUT HEADER DRUG CLASS TEST SYST EM CUT-OFF CONCENTRATIONS ARE FOLLOWS: Normal [facility] Comment on above: Performed By: #### D RUGRPD #### [facility] [address] [place] [address] Dr. Dacia Ackerman mAMP Negative Normal NEGATIVE [facility] Comment on above: Performed By: #### D RUGRPD #### [facility] [address] [place] [address] Dr. Dacia Ackerman MTD Negative Normal NEGATIVE [facility] Comment on above: Performed By: #### D RUGRPD #### [facility] [address] [place] [address] Dr. Dacia Ackerman OPI Negative Normal NEGATIVE [facility] Comment on above: Performed By: #### D RUGRPD #### [facility] [address] [place] [address] Dr. Dacia Ackerman OXY Negative Normal NEGATIVE [facility] Comment on above: Performed By: #### D RUGRPD #### [facility] [address] [address] [address] Dacia Ackerman PCP Negative Normal NEGATIVE [facility] Comment on above: Performed By: #### D RUGRPD #### [facility] [address] [place] [address] Dr. Dacia Ackerman PPX Negative Normal NEGATIVE [facility] Comment on above: Performed By: #### D RUGRPD #### [facility] [address] [place] [address] Dr. Dacia Ackerman TCA Negative Normal NEGATIVE [facility] Comment on above: Performed By: #### D RUGRPD #### [facility] [address] [place] [address] Dr. Dacia Ackerman THC Positive Abnormal NEGATIVE [facility] Comment on above: Performed By: #### D RUGRPD #### [facility] [address] [place] [address] Dr. Dacia Ackerman ER URINE PROFILEon 02-04-202 3 Bilirubin Ql (U) SMALL Abnormal NEGATIVE [facility] Comment on above: Performed By: #### P REGU, ERUR, UMICRO #### [facility] [address] [place] [address] Dr. Dacia Ackerman Clarity (U) CLEAR Normal CLEAR [facility] Comment on above: Performed By: #### P REGU, ERUR, UMICRO #### [facility] [address] [address] [address] Dacia Ackerman Color (U) YELLOW Normal YELLOW [facility] Comment on above: Performed By: #### P REGU, ERUR, UMICRO #### [facility] [address] [address] [address] Dacia OLIVAS A micrscopic examina tion will be performed if indicated. Normal [facility] Comment on above: Performed By: #### P REGU, ERUR, UMICRO #### [facility] [address] [place] [address] Dr. Dacia Ackerman Glucose Ql (U) Negative Normal NEGATIVE [facility] Comment on above: Performed By: #### P REGU, ERUR, UMICRO #### [facility] [address] [place] [address] Dr. Dacia Ackerman Hemoglobin Ql (U) Negative Normal NEGATIVE [facility] Comment on above: Performed By: #### P REGU, ERUR, UMICRO #### [facility] [address] [address] [address] Dacia Ackerman Ketones Ql (U) >=80 Abnormal NEGATIVE [facility] Comment on above: Performed By: #### P REGU, ERUR, UMICRO #### [facility] [address] [address] [address] Dacia Ackerman LEUKOCYTES TRACE Abnormal NEGATIVE [facility] Comment on above: Performed By: #### P REGU, ERUR, UMICRO #### [facility] [address] [place] [address] Dr. Dacia Ackerman Nitrite Ql (U) Negative Normal NEGATIVE [facility] Comment on above: Performed By: #### P REGU, ERUR, UMICRO #### [facility] [address] [place] [address] Dr. Dacia Ackerman pH (U) 7.5 [pH] Normal 5-9 [facility] Comment on above: Performed By: #### P REGU, ERUR, UMICRO #### [facility] [address] [place] [address] Dr. Dacia Ackerman Protein (U) [Mass/Vol] 100 mg/dL Abnormal NEGAT JOAO/ TRACE [facility] Comment on above: Performed By: #### P REGU, ERUR, UMICRO #### [facility] [address] [place] [address] Dr. Dacia Ackerman SPEC GRAVITY 1.020 Normal 1.005-<=1. 025 [facility] Comment on above: Performed By: #### P REGU, ERUR, UMICRO #### [facility] [address] [place] [address] Dr. Dacia Ackerman UR MICRO IND INDICATED Normal [facility] Comment on above: Performed By: #### P REGU, ERUR, UMICRO #### [facility] [address] [place] [address] Dr. Dacia Ackerman Urobilinogen Qn (U) 1.0 {Kaykay'U}/dL Normal 0.2 - 1. 0 [facility] Comment on above: Performed By: #### P REGU, ERUR, UMICRO #### [facility] [address] [place] [address] Dr. Dacia Ackerman INFLUENZA A AND B AGon 01-01 INFLUANEGH SEE BELOW Normal [facility] Comment on above: Result Comment: Nega tive for Flu A protein angiten. Infection due to Flu A cannot be ruled out. Flu A angiten in the sample may be below the detection limit of the test. Performed By: #### I NFLUAB #### [facility] [address] [place] [address] Dr. Dacia Ackerman INFLUBNEGH SEE BELOW Normal [facility] Comment on above: Result Comment: Nega tive for Flu B protein antigen. Infection due to Flu B cannot be ruled out. Flu B antigen in the sample may be below the detection limit of the test. Performed By: #### I NFLUAB #### [facility] [address] [place] [address] Dr. Dacia Ackerman INFLUENZA A AG Negative Normal NEGATIVE SEE COMMENT [facility] Comment on above: Performed By: #### I NFLUAB #### [facility] [address] [place] [address] Dr. Dacia Ackerman INFLUENZA B AG Negative Normal NEGATIVE SEE COMMENT [facility] Comment on above: Performed By: #### I NFLUAB #### [facility] [address] [place] [address] Dr. Dacia Ackerman URon 01-01-2023 , QUAL Negative Normal NEGATIVE [facility] Comment on above: Performed By: #### P REGU, ERUR, UMICRO #### [facility] [address] [place] [address] Dr. Dacia Ackerman URINE MICROSCOPIC ONLYon BACTERIA MODERATE Abnormal NONE SEEN [facility] Comment on above: Performed By: #### P REGU, ERUR, UMICRO #### [facility] [address] [place] [address] Dr. Dacia Ackerman Bacteria identified Cx Nom (U) INDICATED Normal [facility] Comment on above: Performed By: #### P REGU, ERUR, UMICRO #### [facility] [address] [place] [address] Dr. Dacia Ackerman CAST NONE SEEN Normal NONE SEEN [facility] Comment on above: Performed By: #### P REGU, ERUR, UMICRO #### [facility] [address] [place] [address] Dr. Dacia Ackerman Crystals LM Nom (Urine sed) NONE SEEN Normal NONE SEEN [facility] Comment on above: Performed By: #### P REGU, ERUR, UMICRO #### [facility] [address] [place] [address] Dr. Dacia Ackerman Epithelial cells LM Ql (Urine sed) MANY Abnormal NONE SEEN /RARE [facility] Comment on above: Performed By: #### P REGU, ERUR, UMICRO #### [facility] [address] [address] [address] Dacia Ackerman MUCOUS SMALL Abnormal NONE SEEN [facility] Comment on above: Performed By: #### P REGU, ERUR, UMICRO #### [facility] [address] [address] [address] Dacia Ackerman RBC NONE SEEN Abnormal 0-2 [facility] Comment on above: Performed By: #### P REGU, ERUR, UMICRO #### [facility] [address] [address] [address] Dacia Ackerman WBC 5-10 Abnormal NONE SEEN [facility] Comment on above: Performed By: #### P REGU, ERUR, UMICRO #### [facility] [address] [address] [address] Dacia Ackerman XR CHEST 1 Von [...] KIA ARVIZU Date: 2023-01-01 13:00 Normal [facility] Automated erythrocytes count in urine sediment (number/area)Ordered By: Federico Randolph on 12-31-2022 RBC Auto (Urine sed) [#/Area] 0-1 [HPF] 0-4 [facility] Automated leukocytes count i n urine sediment (number/area)Ordered By: Federico Randolph on 12-31-2022 WBC Auto (Urine sed) [#/Area] 20-49 [HPF] 0-4 [facility] Bacteria identified Cx Nom ( U)Ordered By: Federico Randolph on 12-31-2022 Urine culture routine Staphylococcus epidermidis [facility] Bilirubin Test strip Ql (U)O rdered By: Federico Randolph on 12-31-2022 Bilirubin Ql (U) Negative Negative [facility] COVID-19 SOFIAOrdered By: Deep Randolph on 12-31-2022 SARS-CoV+SARS-CoV-2 (COVID-19) Ag IA.rapid Ql (Resp) Negative Negative [facility] Casts typing in urine sedime nt by light microscopyOrdered By: Federico Randolph on 12-31-2022 Casts LM Nom (Urine sed) None seen [LPF] None Seen [facility] Color Auto (U)Ordered By: Deep Randolph on 12-31-2022 Color (U) Yellow Yellow [facility] HCG ( test) IA.rapi d Ql (U)Ordered By: Federico Randolph on 12-31-2022 HCG ( test) Ql (U) Negative [facility] Influenza virus A and B anti gen detection by immunoassayOrdered By: Federico Randolph on 12-31-2022 FLUAV+FLUBV Ag IA Ql (Unsp spec) [facility] Ketones Auto test strip (U) [Mass/Vol]Ordered By: Federico Randolph on 12-31-2022 Ketones (U) [Mass/Vol] 3+ Negative [facility] Nitrite Test strip Ql (U)Ord ered By: Federico Randolph on 12-31-2022 Nitrite Ql (U) Negative Negative [facility] No Panel InformationOrdered By: Federico Randolph on 12-31-2022 None seen [LPF] 0-8 [facility] Protein Auto test strip (U) [Mass/Vol]Ordered By: Federico Randolph on 12-31-2022 Protein (U) [Mass/Vol] 100 mg/dL Negative [facility] Specific gravity Auto test s trip (U) [Rel density]Ordered By: Federico Randolph on 12-31-2022 Specific gravity (U) [Rel density] 1.026 1.001-1.03 0 [facility] Squamous epithelial cells de tection in urine sediment by light microscopyOrdered By: Federico Randolph on 12-31-2022 Epithelial cells.squamous LM Ql (Urine sed) Innumerable [HPF] 0-2 [facility] Urine bacteria detection by automated methodOrdered By: Federico Randolph on 12-31-2022 Bacteria Auto Ql (U) 3+ None Seen [facility] Urine clarity by refractomet ry automatedOrdered By: Federico Randolph on 12-31-2022 Clarity Refractometry automated (U) Turbid Clear [facility] Urine glucose measurement by automated test strip (mass/volume)Ordered By: Federico Randolph on 12-31-2022 Glucose Auto test strip (U) [Mass/Vol] Normal mg/dL Normal [facility] Urine hemoglobin detection b y automated test stripOrdered By: Federico Randolph on 12-31-2022 Hemoglobin Auto test strip Ql (U) Negative Negative [facility] Urine leukocyte esterase det ection by automated test stripOrdered By: Federico Randolph on 12-31-2022 Leukocyte esterase Auto test strip Ql (U) 2+ Negative [facility] Urobilinogen Auto test strip (U) [Mass/Vol]Ordered By: Federico Randolph on 12-31-2022 Urobilinogen (U) [Mass/Vol] Normal mg/dL Normal [facility] pH Auto test strip (U)Ordere d By: Federico Randolph on 12-31-2022 pH (U) [pH] 5.0-9.0 [facility] Amphetamine Screen Ql (U)Ord ered By: Dixon Newberry on 11-09-2022 Amphetamines Ql (U) Negative Negative [facility] Barbiturates [Presence] in U rineOrdered By: Dixon Newberry on 11-09-2022 Barbiturates Ql (U) Negative Negative [facility] Basophils Auto (Bld) [#/Vol] Ordered By: Dixon Newberry on 11-09-2022 Basophils (Bld) [#/Vol] 0.0 10*3/uL 0.0-0.1 [facility] Basophils/100 WBC Auto (Bld) Ordered By: Dixon Newberry on 11-09-2022 Basophils/100 WBC (Bld) 0.3 % . [facility] Benzodiazepines [Presence] i n UrineOrdered By: Dixon Newberry on 11-09-2022 Benzodiazepines Ql (U) Negative Negative [facility] Bilirubin Test strip Ql (U)O rdered By: Dixon Newberry on 11-09-2022 Bilirubin Ql (U) Negative Negative [facility] Body fluid albumin measureme nt (mass/volume)Ordered By: Dixon Newberry on 11-09-2022 Albumin (Body fld) [Mass/Vol] 4.2 g/dL 3.2-5.5 [facility] Cannabinoids [Presence] in U rine by Screen methodOrdered By: Dixon Newberry on 11-09-2022 Cannabinoids Screen Ql (U) Positive Negative [facility] Color Auto (U)Ordered By: Nazia Newberry on 11-09-2022 Color (U) Yellow Yellow [facility] Eosinophils Auto (Bld) [#/Vo l]Ordered By: Dixon Newberry on 11-09-2022 Eosinophils (Bld) [#/Vol] 0.1 10*3/uL 0.0-0.7 [facility] Eosinophils/100 WBC Auto (Bl d)Ordered By: Dixon Newberry on 11-09-2022 Eosinophils/100 WBC (Bld) 0.8 % . [facility] Erythrocyte distribution wid th Auto (RBC) [Ratio]Ordered By: Dixon Newberry on 11-09-2022 Erythrocyte distribution width (RBC) [Ratio] 13.8 % 11.9-15.3 [facility] Estimated glomerular filtrat ion rate (GFR) non- AmericanOrdered By: Dixon Newberry on 11-09-2022 GFR/1.73 sq M.predicted among non-blacks MDRD (S/P/Bld) [Vol rate/Area] > 60 mL/Min [facility] Globulin Calc (S) [Mass/Vol] Ordered By: Dixon Newberry on 11-09-2022 Globulin (S) [Mass/Vol] 2.4 g/dL [facility] HCG ( test) IA.rapi d Ql (U)Ordered By: Dixon Newberry on 11-09-2022 HCG ( test) Ql (U) Negative [facility] Hematocrit Auto (Bld) [Volum e fraction]Ordered By: Dixon Newberry on 11-09-2022 Hematocrit (Bld) [Volume fraction] 41.0 % 36.0-46.0 [facility] Hemoglobin [Mass/volume] in BloodOrdered By: Dixon Newberry on 11-09-2022 Hemoglobin (Bld) [Mass/Vol] 13.4 g/dL 12.0-16.0 [facility] Ketones Auto test strip (U) [Mass/Vol]Ordered By: Dixon Newberry on 11-09-2022 Ketones (U) [Mass/Vol] Negative Negative [facility] Leukocytes [#/volume] correc venkata for nucleated erythrocytes in Blood by Automated counOrdered By: Dixon Newberry on 11-09-2022 WBC corrected for nucl RBC Auto (Bld) [#/Vol] 11.7 10*3/uL 4.5-13.5 [facility] Lymphocytes Auto (Bld) [#/Vo l]Ordered By: Dixon Newberry on 11-09-2022 Lymphocytes (Bld) [#/Vol] 1.4 10*3/uL 1.20-4.8 [facility] Lymphocytes/100 WBC Auto (Bl d)Ordered By: Dixon Newberry on 11-09-2022 Lymphocytes/100 WBC (Bld) 12.1 % . [facility] MCH Auto (RBC) [Entitic mass ]Ordered By: Dixon [place] on 11-09-2022 MCH (RBC) [Entitic mass] 28.1 pg 25.0-35.0 [facility] MCHC Auto (RBC) [Mass/Vol]Or dered By: Dixon Newberry on 11-09-2022 MCHC (RBC) [Mass/Vol] 32.8 g/dL 31.0-37.[address] [facility] MCV Auto (RBC) [Entitic vol] Ordered By: Dixon Newberry on 11-09-2022 MCV (RBC) [Entitic vol] 85.7 fL 78-102 [facility] Monocyte distribution width [Entitic volume] in Blood by AutomatedOrdered By: Dixon Newberry on 11-09-2022 Monocyte distribution width Auto (Bld) [Entitic vol] 16.08 % 0.00-20.00 [facility] Monocytes Auto (Bld) [#/Vol] Ordered By: Dixon Newberry on 11-09-2022 Monocytes (Bld) [#/Vol] 0.5 10*3/uL 0.1-1.00 [facility] Monocytes/100 WBC Auto (Bld) Ordered By: Dixon Newberry on 11-09-2022 Monocytes/100 WBC (Bld) 4.7 % . [facility] Neutrophils Auto (Bld) [#/Vo l]Ordered By: Dixon Newberry on 11-09-2022 Neutrophils (Bld) [#/Vol] 9.6 10*3/uL 1.2-7.7 [facility] Neutrophils/100 WBC Auto (Bl d)Ordered By: Dixon Newberry on 11-09-2022 Neutrophils/100 WBC (Bld) 82.1 % . [facility] Nitrite Test strip Ql (U)Ord ered By: Dixon Newberry on 11-09-2022 Nitrite Ql (U) Negative Negative [facility] No Panel InformationOrdered By: Dixon Newberry on 11-09-2022 Negative Negative [facility] > 60 mL/Min [facility] 118.86 [facility] Nucleated erythrocytes [Pres ence] in Blood by Automated countOrdered By: Dixon Newberry on 11-09-2022 Nucleated RBC Auto Ql (Bld) 0.1 /100{WBC} 0-0.5 [facility] Phencyclidine Screen Ql (U)O rdered By: Dixon Newberry on 11-09-2022 Phencyclidine Ql (U) Negative Negative [facility] Platelet mean volume Auto (B ld) [Entitic vol]Ordered By: Dixon Newberry on 11-09-2022 Platelet mean volume (Bld) [Entitic vol] 8.5 fL 6.3-10.7 [facility] Platelets Auto (Bld) [#/Vol] Ordered By: Dixon Newberry on 11-09-2022 Platelets (Bld) [#/Vol] 274 10*3/uL 150-450 [facility] Protein Auto test strip (U) [Mass/Vol]Ordered By: Dixon Newberry on 11-09-2022 Protein (U) [Mass/Vol] Negative Negative [facility] Protein [Mass/volume] in Ser um or PlasmaOrdered By: Dixon Newberry on 11-09-2022 Protein [Mass/Vol] 6.6 g/dL 6.1-7.9 [facility] RBC Auto (Bld) [#/Vol]Ordere d By: Dixon Newberry on 11-09-2022 RBC (Bld) [#/Vol] 4.78 10*6/uL 4.10-5.10 [facility] Serum or plasma alanine florez otransferase measurement without P-5'-P (enzymatic activiOrdered By: Dixon Newberry on 11-09-2022 ALT No additional P-5'-P [Catalytic activity/Vol] 67 U/L 10-60 [facility] Serum or plasma albumin/glob ulin mass ratioOrdered By: Dixon Newberry on 11-09-2022 Albumin/Globulin [Mass ratio] 1.8 {ratio} [facility] Serum or plasma alkaline justin sphatase measurement (enzymatic activity/volume)Ordered By: Dixon Newberry on 11-09-2022 ALP [Catalytic activity/Vol] 59 U/L 32-92 [facility] Serum or plasma anion gap de terminationOrdered By: Dixon Newberry on 11-09-2022 Anion gap [Moles/Vol] 19.7 mmol/L 6.0-15.0 [facility] Serum or plasma aspartate am inotransferase measurement (enzymatic activity/volume)Ordered By: Dixon Newberry on 11-09-2022 AST [Catalytic activity/Vol] 48 U/L 10-42 [facility] Serum or plasma calcium tammy urement (mass/volume)Ordered By: Dixon Newberry on 11-09-2022 Calcium [Mass/Vol] 9.6 mg/dL 8.2-10.2 [facility] Serum or plasma chloride judy surement (moles/volume)Ordered By: Dixon Newberry on 11-09-2022 Chloride [Moles/Vol] 98 mmol/L 95-114 [facility] Serum or plasma creatinine m easurement with calculation of estimated glomerular filtrOrdered By: Dixon Newberry on 11-09-2022 Creatinine and Glomerular filtration rate.predicted panel (S/P/Bld) 0.76 mg/dL 0.44-1.03 [facility] Serum or plasma glucose tammy urement (mass/volume)Ordered By: Dixon Newberry on 11-09-2022 Glucose [Mass/Vol] 110 mg/dL 70-100 [facility] Serum or plasma potassium me asurement (moles/volume)Ordered By: Dixon Newberry on 11-09-2022 Potassium [Moles/Vol] 3.4 mmol/L 3.5-5.[address] [facility] Serum or plasma sodium measu rement (moles/volume)Ordered By: Dixon Newberry on 11-09-2022 Sodium [Moles/Vol] 137 mmol/L 136-146 [facility] Serum or plasma total biliru bin measurement (mass/volume)Ordered By: Dixon Newberry on 11-09-2022 Bilirubin [Mass/Vol] 0.5 mg/dL 0.3-1.2 [facility] Serum or plasma total carbon dioxide measurement (moles/volume)Ordered By: Dixon Newberry on 11-09-2022 CO2 [Moles/Vol] 22.7 mmol/L 22.0-30.0 [facility] Serum or plasma urea nitroge n measurement (mass/volume)Ordered By: Dixon Newberry on 11-09-2022 Urea nitrogen [Mass/Vol] 3 mg/dL 9-23 [facility] Specific gravity Auto test s trip (U) [Rel density]Ordered By: Dixon Newberry on 11-09-2022 Specific gravity (U) [Rel density] 1.009 1.001-1.03 0 [facility] Urine clarity by refractomet ry automatedOrdered By: Dixon Newberry on 11-09-2022 Clarity Refractometry automated (U) Clear Clear [facility] Urine cocaine detectionOrder ed By: Dixon Newberry on 11-09-2022 Cocaine Ql (U) Negative Negative [facility] Urine glucose measurement by automated test strip (mass/volume)Ordered By: Dixon Newberry on 11-09-2022 Glucose Auto test strip (U) [Mass/Vol] Normal mg/dL Normal [facility] Urine hemoglobin detection b y automated test stripOrdered By: Dixon Newberry on 11-09-2022 Hemoglobin Auto test strip Ql (U) Negative Negative [facility] Urine leukocyte esterase det ection by automated test stripOrdered By: Dixon Newberry on 11-09-2022 Leukocyte esterase Auto test strip Ql (U) Negative Negative [facility] Urobilinogen Auto test strip (U) [Mass/Vol]Ordered By: Dixon Newberry on 11-09-2022 Urobilinogen (U) [Mass/Vol] Normal mg/dL Normal [facility] WBC Auto (Bld) [#/Vol]Ordere d By: Dixon Newberry on 11-09-2022 WBC (Bld) [#/Vol] 11.7 10*3/uL 4.5-13.5 [facility] pH Auto test strip (U)Ordere d By: Dixon Newberry on 11-09-2022 pH (U) [pH] 5.0-9.0 [facility] Albumin [Mass/volume] in Ser um or PlasmaOrdered By: Art Bianchi on 11-07-2022 Albumin [Mass/Vol] 4.6 g/dL 3.2-5.5 [facility] Automated erythrocytes count in urine sediment (number/area)Ordered By: Art Bianchi on 11-07-2022 RBC Auto (Urine sed) [#/Area] 0-1 [HPF] 0-4 [facility] Automated leukocytes count i n urine sediment (number/area)Ordered By: Art Bianchi on 11-07-2022 WBC Auto (Urine sed) [#/Area] 3-4 [HPF] 0-4 [facility] Basophils Auto (Bld) [#/Vol] Ordered By: Art Bianchi on 11-07-2022 Basophils (Bld) [#/Vol] 0.1 10*3/uL 0.0-0.1 [facility] Basophils/100 WBC Auto (Bld) Ordered By: Art Bianchi on 11-07-2022 Basophils/100 WBC (Bld) 1.0 % . [facility] Bilirubin Test strip Ql (U)O rdered By: Art Bianchi on 11-07-2022 Bilirubin Ql (U) Negative Negative [facility] Color Auto (U)Ordered By: Adrian Bianchi on 11-07-2022 Color (U) Yellow Yellow [facility] Eosinophils Auto (Bld) [#/Vo l]Ordered By: Art Bianchi on 11-07-2022 Eosinophils (Bld) [#/Vol] 0.1 10*3/uL 0.0-0.7 [facility] Eosinophils/100 WBC Auto (Bl d)Ordered By: Art Bianchi on 11-07-2022 Eosinophils/100 WBC (Bld) 1.2 % . [facility] Erythrocyte distribution wid th Auto (RBC) [Ratio]Ordered By: Art Bianchi on 11-07-2022 Erythrocyte distribution width (RBC) [Ratio] 14.0 % 11.9-15.3 [facility] Estimated glomerular filtrat ion rate (GFR) non- AmericanOrdered By: Art Bianchi on 11-07-2022 GFR/1.73 sq M.predicted among non-blacks MDRD (S/P/Bld) [Vol rate/Area] > 60 mL/Min [facility] Globulin Calc (S) [Mass/Vol] Ordered By: Art Bianchi on 11-07-2022 Globulin (S) [Mass/Vol] 2.7 g/dL [facility] HCG ( test) IA.rapi d Ql (U)Ordered By: Art Bianchi on 11-07-2022 HCG ( test) Ql (U) Negative [facility] Hematocrit Auto (Bld) [Volum e fraction]Ordered By: Art Bianchi on 11-07-2022 Hematocrit (Bld) [Volume fraction] 43.2 % 36.0-46.0 [facility] Hemoglobin [Mass/volume] in BloodOrdered By: Art Bianchi on 11-07-2022 Hemoglobin (Bld) [Mass/Vol] 14.8 g/dL 12.0-16.0 [facility] Ketones Auto test strip (U) [Mass/Vol]Ordered By: Art Bianchi on 11-07-2022 Ketones (U) [Mass/Vol] 1+ Negative [facility] Leukocytes [#/volume] correc venkata for nucleated erythrocytes in Blood by Automated counOrdered By: Art Bianchi on 11-07-2022 WBC corrected for nucl RBC Auto (Bld) [#/Vol] 10.3 10*3/uL 4.5-13.5 [facility] Lymphocytes Auto (Bld) [#/Vo l]Ordered By: Art Bianchi on 11-07-2022 Lymphocytes (Bld) [#/Vol] 2.1 10*3/uL 1.20-4.8 [facility] Lymphocytes/100 WBC Auto (Bl d)Ordered By: Art Bianchi on 11-07-2022 Lymphocytes/100 WBC (Bld) 20.8 % . [facility] MCH Auto (RBC) [Entitic mass ]Ordered By: Art Bianchi on 11-07-2022 MCH (RBC) [Entitic mass] 28.8 pg 25.0-35.0 [facility] MCHC Auto (RBC) [Mass/Vol]Or dered By: Art Bianchi on 11-07-2022 MCHC (RBC) [Mass/Vol] 34.3 g/dL 31.0-37.[address] [facility] MCV Auto (RBC) [Entitic vol] Ordered By: Art Bianchi on 11-07-2022 MCV (RBC) [Entitic vol] 84.1 fL 78-102 [facility] Monocyte distribution width [Entitic volume] in Blood by AutomatedOrdered By: Art Bianchi on 11-07-2022 Monocyte distribution width Auto (Bld) [Entitic vol] 17.07 % 0.00-20.00 [facility] Monocytes Auto (Bld) [#/Vol] Ordered By: Art Bianchi on 11-07-2022 Monocytes (Bld) [#/Vol] 0.8 10*3/uL 0.1-1.00 [facility] Monocytes/100 WBC Auto (Bld) Ordered By: Art Bianchi on 11-07-2022 Monocytes/100 WBC (Bld) 8.1 % . [facility] Neutrophils Auto (Bld) [#/Vo l]Ordered By: Art Bianchi on 11-07-2022 Neutrophils (Bld) [#/Vol] 7.1 10*3/uL 1.2-7.7 [facility] Neutrophils/100 WBC Auto (Bl d)Ordered By: Art Bianchi on 11-07-2022 Neutrophils/100 WBC (Bld) 68.9 % . [facility] Nitrite Test strip Ql (U)Ord ered By: Art Bianchi on 11-07-2022 Nitrite Ql (U) Negative Negative [facility] No Panel InformationOrdered By: Art Bianchi on 11-07-2022 0-8 [LPF] 0-8 [facility] > 60 mL/Min [facility] 43.0 U/L 22-51 [facility] 104.35 [facility] Nucleated erythrocytes [Pres ence] in Blood by Automated countOrdered By: Art Bianchi on 11-07-2022 Nucleated RBC Auto Ql (Bld) 0.3 /100{WBC} 0-0.5 [facility] Platelet mean volume Auto (B ld) [Entitic vol]Ordered By: Art Binachi on 11-07-2022 Platelet mean volume (Bld) [Entitic vol] 8.4 fL 6.3-10.7 [facility] Platelets Auto (Bld) [#/Vol] Ordered By: Art Bianchi on 11-07-2022 Platelets (Bld) [#/Vol] 308 10*3/uL 150-450 [facility] Protein Auto test strip (U) [Mass/Vol]Ordered By: Art Bianchi on 11-07-2022 Protein (U) [Mass/Vol] Trace mg/dL Negative [facility] Protein [Mass/volume] in Ser um or PlasmaOrdered By: Art Bianchi on 11-07-2022 Protein [Mass/Vol] 7.3 g/dL 6.1-7.9 [facility] RBC Auto (Bld) [#/Vol]Ordere d By: Art Bianchi on 11-07-2022 RBC (Bld) [#/Vol] 5.14 10*6/uL 4.10-5.10 [facility] Serum or plasma alanine florez otransferase measurement without P-5'-P (enzymatic activiOrdered By: Art Bianchi on 11-07-2022 ALT No additional P-5'-P [Catalytic activity/Vol] 24 U/L 10-60 [facility] Serum or plasma albumin/glob ulin mass ratioOrdered By: Art Bianchi on 11-07-2022 Albumin/Globulin [Mass ratio] 1.7 {ratio} [facility] Serum or plasma alkaline justin sphatase measurement (enzymatic activity/volume)Ordered By: Art Bianchi on 11-07-2022 ALP [Catalytic activity/Vol] 60 U/L 32-92 [facility] Serum or plasma anion gap de terminationOrdered By: Art Bianchi on 11-07-2022 Anion gap [Moles/Vol] 12.2 mmol/L 6.0-15.0 [facility] Serum or plasma aspartate am inotransferase measurement (enzymatic activity/volume)Ordered By: Art Bianchi on 11-07-2022 AST [Catalytic activity/Vol] 25 U/L 10-42 [facility] Serum or plasma calcium tammy urement (mass/volume)Ordered By: Art Bianchi on 11-07-2022 Calcium [Mass/Vol] 9.6 mg/dL 8.2-10.2 [facility] Serum or plasma chloride judy surement (moles/volume)Ordered By: Art Bianchi on 11-07-2022 Chloride [Moles/Vol] 98 mmol/L 95-114 [facility] Serum or plasma creatinine m easurement with calculation of estimated glomerular filtrOrdered By: Art Bianchi on 11-07-2022 Creatinine and Glomerular filtration rate.predicted panel (S/P/Bld) 0.84 mg/dL 0.44-1.03 [facility] Serum or plasma glucose tammy urement (mass/volume)Ordered By: Art Bianchi on 11-07-2022 Glucose [Mass/Vol] 106 mg/dL 70-100 [facility] Serum or plasma potassium me asurement (moles/volume)Ordered By: Art Bianchi on 11-07-2022 Potassium [Moles/Vol] 3.2 mmol/L 3.5-5.[address] [facility] Serum or plasma sodium measu rement (moles/volume)Ordered By: Art Bianchi on 11-07-2022 Sodium [Moles/Vol] 132 mmol/L 136-146 [facility] Serum or plasma total biliru bin measurement (mass/volume)Ordered By: Art Bianchi on 11-07-2022 Bilirubin [Mass/Vol] 0.8 mg/dL 0.3-1.2 [facility] Serum or plasma total carbon dioxide measurement (moles/volume)Ordered By: Art Bianchi on 11-07-2022 CO2 [Moles/Vol] 25.0 mmol/L 22.0-30.0 [facility] Serum or plasma urea nitroge n measurement (mass/volume)Ordered By: Art Bianchi on 11-07-2022 Urea nitrogen [Mass/Vol] 6 mg/dL 9-23 [facility] Specific gravity Auto test s trip (U) [Rel density]Ordered By: Art Bianchi on 11-07-2022 Specific gravity (U) [Rel density] 1.014 1.001-1.03 0 [facility] Squamous epithelial cells de tection in urine sediment by light microscopyOrdered By: Art Bianchi on 11-07-2022 Epithelial cells.squamous LM Ql (Urine sed) 5-9 [HPF] 0-2 [facility] Urine bacteria detection by automated methodOrdered By: Art Bianchi on 11-07-2022 Bacteria Auto Ql (U) None seen None Seen [facility] Urine clarity by refractomet ry automatedOrdered By: Art Bianchi on 11-07-2022 Clarity Refractometry automated (U) Clear Clear [facility] Urine glucose measurement by automated test strip (mass/volume)Ordered By: Art Bianchi on 11-07-2022 Glucose Auto test strip (U) [Mass/Vol] Normal mg/dL Normal [facility] Urine hemoglobin detection b y automated test stripOrdered By: Art Bianchi on 11-07-2022 Hemoglobin Auto test strip Ql (U) Negative Negative [facility] Urine leukocyte esterase det ection by automated test stripOrdered By: Art Bianchi on 11-07-2022 Leukocyte esterase Auto test strip Ql (U) Negative Negative [facility] Urobilinogen Auto test strip (U) [Mass/Vol]Ordered By: Art Bianchi on 11-07-2022 Urobilinogen (U) [Mass/Vol] Normal mg/dL Normal [facility] WBC Auto (Bld) [#/Vol]Ordere d By: Art Bianchi on 11-07-2022 WBC (Bld) [#/Vol] 10.3 10*3/uL 4.5-13.5 [facility] pH Auto test strip (U)Ordere d By: Art Bianchi on 11-07-2022 pH (U) 8.5 [pH] 5.0-9.0 [facility] Urine culture routineOrdered By: Colten Fry on 11-04-2022 Bacteria identified Cx Nom (U) 2 Days [facility] Albumin [Mass/volume] in Ser um or PlasmaOrdered By: Colten Fry on 11-02-2022 Albumin [Mass/Vol] 4.8 g/dL 3.2-5.5 [facility] Amphetamine Screen Ql (U)Ord ered By: Colten Fry on 11-02-2022 Amphetamines Ql (U) Negative Negative [facility] Automated erythrocytes count in urine sediment (number/area)Ordered By: Colten Fry on 11-02-2022 RBC Auto (Urine sed) [#/Area] 20-49 [HPF] 0-4 [facility] Automated leukocytes count i n urine sediment (number/area)Ordered By: Colten Fry on 11-02-2022 WBC Auto (Urine sed) [#/Area] 5-9 [HPF] 0-4 [facility] Barbiturates [Presence] in U rineOrdered By: Colten Fry on 11-02-2022 Barbiturates Ql (U) Negative Negative [facility] Basophils Auto (Bld) [#/Vol] Ordered By: Colten Fry on 11-02-2022 Basophils (Bld) [#/Vol] 0.1 10*3/uL 0.0-0.1 [facility] Basophils/100 WBC Auto (Bld) Ordered By: Colten Fry on 11-02-2022 Basophils/100 WBC (Bld) 0.5 % . [facility] Benzodiazepines [Presence] i n UrineOrdered By: Colten Fry on 11-02-2022 Benzodiazepines Ql (U) Negative Negative [facility] Bilirubin Test strip Ql (U)O rdered By: Colten Fry on 11-02-2022 Bilirubin Ql (U) Negative Negative [facility] Cannabinoids [Presence] in U rine by Screen methodOrdered By: Colten Fry on 11-02-2022 Cannabinoids Screen Ql (U) Positive Negative [facility] Color Auto (U)Ordered By: Vida Fry on 11-02-2022 Color (U) Yellow Yellow [facility] Eosinophils Auto (Bld) [#/Vo l]Ordered By: Colten Fry on 11-02-2022 Eosinophils (Bld) [#/Vol] 0.3 10*3/uL 0.0-0.7 [facility] Eosinophils/100 WBC Auto (Bl d)Ordered By: Colten Fry on 11-02-2022 Eosinophils/100 WBC (Bld) 2.1 % . [facility] Erythrocyte distribution wid th Auto (RBC) [Ratio]Ordered By: Colten Fry on 11-02-2022 Erythrocyte distribution width (RBC) [Ratio] 13.7 % 11.9-15.3 [facility] Estimated glomerular filtrat ion rate (GFR) non- AmericanOrdered By: Colten Fry on 11-02-2022 GFR/1.73 sq M.predicted among non-blacks MDRD (S/P/Bld) [Vol rate/Area] > 60 mL/Min [facility] Globulin Calc (S) [Mass/Vol] Ordered By: Colten Fry on 11-02-2022 Globulin (S) [Mass/Vol] 3.1 g/dL [facility] HCG ( test) IA.rapi d Ql (U)Ordered By: Colten Fry on 11-02-2022 HCG ( test) Ql (U) Negative [facility] Hematocrit Auto (Bld) [Volum e fraction]Ordered By: Colten Fry on 11-02-2022 Hematocrit (Bld) [Volume fraction] 45.3 % 36.0-46.0 [facility] Hemoglobin [Mass/volume] in BloodOrdered By: Colten Fry on 11-02-2022 Hemoglobin (Bld) [Mass/Vol] 15.4 g/dL 12.0-16.0 [facility] Ketones Auto test strip (U) [Mass/Vol]Ordered By: Colten Fry on 11-02-2022 Ketones (U) [Mass/Vol] 3+ Negative [facility] Leukocytes [#/volume] correc venkata for nucleated erythrocytes in Blood by Automated counOrdered By: Colten Fry on 11-02-2022 WBC corrected for nucl RBC Auto (Bld) [#/Vol] 11.7 10*3/uL 4.5-13.5 [facility] Lymphocytes Auto (Bld) [#/Vo l]Ordered By: Colten Fry on 11-02-2022 Lymphocytes (Bld) [#/Vol] 2.3 10*3/uL 1.20-4.8 [facility] Lymphocytes/100 WBC Auto (Bl d)Ordered By: Colten Fry on 11-02-2022 Lymphocytes/100 WBC (Bld) 19.6 % . [facility] MCH Auto (RBC) [Entitic mass ]Ordered By: Colten Fry on 11-02-2022 MCH (RBC) [Entitic mass] 28.4 pg 25.0-35.0 [facility] MCHC Auto (RBC) [Mass/Vol]Or dered By: Colten Fry on 11-02-2022 MCHC (RBC) [Mass/Vol] 34.0 g/dL 31.0-37.[address] [facility] MCV Auto (RBC) [Entitic vol] Ordered By: Colten Fry on 11-02-2022 MCV (RBC) [Entitic vol] 83.3 fL 78-102 [facility] Monocytes Auto (Bld) [#/Vol] Ordered By: Colten Fry on 11-02-2022 Monocytes (Bld) [#/Vol] 1.0 10*3/uL 0.1-1.00 [facility] Monocytes/100 WBC Auto (Bld) Ordered By: Colten Fry on 11-02-2022 Monocytes/100 WBC (Bld) 8.5 % . [facility] Neutrophils Auto (Bld) [#/Vo l]Ordered By: Colten Fry on 11-02-2022 Neutrophils (Bld) [#/Vol] 8.1 10*3/uL 1.2-7.7 [facility] Neutrophils/100 WBC Auto (Bl d)Ordered By: Colten Fry on 11-02-2022 Neutrophils/100 WBC (Bld) 69.3 % . [facility] Nitrite Test strip Ql (U)Ord ered By: Colten Fry on 11-02-2022 Nitrite Ql (U) Negative Negative [facility] No Panel InformationOrdered By: Colten Fry on 11-02-2022 9-19 [LPF] 0-8 [facility] Negative Negative [facility] > 60 mL/Min [facility] 100.26 [facility] No Panel InformationOrdered By: Robert Bolanos on 11-02-2022 2.6 mg/dL 1.6-2.6 [facility] Nucleated erythrocytes [Pres ence] in Blood by Automated countOrdered By: Colten Fry on 11-02-2022 Nucleated RBC Auto Ql (Bld) 0.1 /100{WBC} 0-0.5 [facility] Phencyclidine Screen Ql (U)O rdered By: Colten Fry on 11-02-2022 Phencyclidine Ql (U) Negative Negative [facility] Platelet mean volume Auto (B ld) [Entitic vol]Ordered By: Colten Fry on 11-02-2022 Platelet mean volume (Bld) [Entitic vol] 7.9 fL 6.3-10.7 [facility] Platelets Auto (Bld) [#/Vol] Ordered By: Colten Fry on 11-02-2022 Platelets (Bld) [#/Vol] 292 10*3/uL 150-450 [facility] Protein Auto test strip (U) [Mass/Vol]Ordered By: Colten Fry on 11-02-2022 Protein (U) [Mass/Vol] 30 mg/dL Negative [facility] Protein [Mass/volume] in Ser um or PlasmaOrdered By: Colten Fry on 11-02-2022 Protein [Mass/Vol] 7.9 g/dL 6.1-7.9 [facility] RBC Auto (Bld) [#/Vol]Ordere d By: Colten Fry on 11-02-2022 RBC (Bld) [#/Vol] 5.43 10*6/uL 4.10-5.10 [facility] Serum or plasma alanine florez otransferase measurement without P-5'-P (enzymatic activiOrdered By: Colten Fry on 11-02-2022 ALT No additional P-5'-P [Catalytic activity/Vol] 20 U/L 10-60 [facility] Serum or plasma albumin/glob ulin mass ratioOrdered By: Colten Fry on 11-02-2022 Albumin/Globulin [Mass ratio] 1.5 {ratio} [facility] Serum or plasma alkaline justin sphatase measurement (enzymatic activity/volume)Ordered By: Colten Fry on 11-02-2022 ALP [Catalytic activity/Vol] 65 U/L 32-92 [facility] Serum or plasma anion gap de terminationOrdered By: Colten Fry on 11-02-2022 Anion gap [Moles/Vol] 14.6 mmol/L 6.0-15.0 [facility] Serum or plasma aspartate am inotransferase measurement (enzymatic activity/volume)Ordered By: Colten Fry on 11-02-2022 AST [Catalytic activity/Vol] 19 U/L 10-42 [facility] Serum or plasma calcium tammy urement (mass/volume)Ordered By: Colten Fry on 11-02-2022 Calcium [Mass/Vol] 9.6 mg/dL 8.2-10.2 [facility] Serum or plasma chloride judy surement (moles/volume)Ordered By: Colten Fry on 11-02-2022 Chloride [Moles/Vol] 95 mmol/L 95-114 [facility] Serum or plasma creatinine m easurement with calculation of estimated glomerular filtrOrdered By: Colten Fry on 11-02-2022 Creatinine and Glomerular filtration rate.predicted panel (S/P/Bld) 0.88 mg/dL 0.44-1.03 [facility] Serum or plasma glucose tammy urement (mass/volume)Ordered By: Colten Fry on 11-02-2022 Glucose [Mass/Vol] 95 mg/dL 70-100 [facility] Serum or plasma potassium me asurement (moles/volume)Ordered By: Colten Fry on 11-02-2022 Potassium [Moles/Vol] 2.9 mmol/L 3.5-5.[address] [facility] Serum or plasma sodium measu rement (moles/volume)Ordered By: Colten Fry on 11-02-2022 Sodium [Moles/Vol] 134 mmol/L 136-146 [facility] Serum or plasma total biliru bin measurement (mass/volume)Ordered By: Colten Fry on 11-02-2022 Bilirubin [Mass/Vol] 1.8 mg/dL 0.3-1.2 [facility] Serum or plasma total carbon dioxide measurement (moles/volume)Ordered By: Colten Fry on 11-02-2022 CO2 [Moles/Vol] 27.3 mmol/L 22.0-30.0 [facility] Serum or plasma urea nitroge n measurement (mass/volume)Ordered By: Colten Fry on 11-02-2022 Urea nitrogen [Mass/Vol] 24 mg/dL 9- [facility] Specific gravity Auto test s trip (U) [Rel density]Ordered By: Colten Fry on 11-02-2022 Specific gravity (U) [Rel density] 1.025 1.001-1.03 0 [facility] Squamous epithelial cells de tection in urine sediment by light microscopyOrdered By: Colten Fry on 11-02-2022 Epithelial cells.squamous LM Ql (Urine sed) 10-19 [HPF] 0-2 [facility] Urine bacteria detection by automated methodOrdered By: Colten Fry on 11-02-2022 Bacteria Auto Ql (U) None seen None Seen [facility] Urine clarity by refractomet ry automatedOrdered By: Colten Fry on 11-02-2022 Clarity Refractometry automated (U) Cloudy Clear [facility] Urine cocaine detectionOrder ed By: Colten Fry on 11-02-2022 Cocaine Ql (U) Negative Negative [facility] Urine culture routineOrdered By: Colten Fry on 11-02-2022 Bacteria identified Cx Nom (U) 2 Days [facility] Urine culture routineOrdered By: Art Bianchi on 11-02-2022 Bacteria identified Cx Nom (U) 2 Days [facility] Urine glucose measurement by automated test strip (mass/volume)Ordered By: Colten Fry on 11-02-2022 Glucose Auto test strip (U) [Mass/Vol] Normal mg/dL Normal [facility] Urine hemoglobin detection b y automated test stripOrdered By: Colten Fry on 11-02-2022 Hemoglobin Auto test strip Ql (U) 3+ Negative [facility] Urine leukocyte esterase det ection by automated test stripOrdered By: Colten Fry on 11-02-2022 Leukocyte esterase Auto test strip Ql (U) 2+ Negative [facility] Urobilinogen Auto test strip (U) [Mass/Vol]Ordered By: Colten Fry on 11-02-2022 Urobilinogen (U) [Mass/Vol] Normal mg/dL Normal [facility] WBC Auto (Bld) [#/Vol]Ordere d By: Colten Fry on 11-02-2022 WBC (Bld) [#/Vol] 11.7 10*3/uL 4.5-13.5 [facility] pH Auto test strip (U)Ordere d By: Colten Fry on 11-02-2022 pH (U) 7.0 [pH] 5.0-9.0 [facility] Albumin [Mass/volume] in Ser um or PlasmaOrdered By: Art Bianchi on 10-31-2022 Albumin [Mass/Vol] 5.1 g/dL 3.2-5.5 [facility] Automated erythrocytes count in urine sediment (number/area)Ordered By: Art Bianchi on 10-31-2022 RBC Auto (Urine sed) [#/Area] Innumerable [HPF] 0-4 [facility] Automated leukocytes count i n urine sediment (number/area)Ordered By: Art Bianchi on 10-31-2022 WBC Auto (Urine sed) [#/Area] 10-19 [HPF] 0-4 [facility] Basophils Auto (Bld) [#/Vol] Ordered By: Art Bianchi on 10-31-2022 Basophils (Bld) [#/Vol] 0.0 10*3/uL 0.0-0.1 [facility] Basophils/100 WBC Auto (Bld) Ordered By: Art Bianchi on 10-31-2022 Basophils/100 WBC (Bld) 0.3 % . [facility] Bilirubin Test strip Ql (U)O rdered By: Art Bianchi on 10-31-2022 Bilirubin Ql (U) Negative Negative [facility] Color Auto (U)Ordered By: Adrian Bianchi on 10-31-2022 Color (U) Red Yellow [facility] Eosinophils Auto (Bld) [#/Vo l]Ordered By: Art Bianchi on 10-31-2022 Eosinophils (Bld) [#/Vol] 0.1 10*3/uL 0.0-0.7 [facility] Eosinophils/100 WBC Auto (Bl d)Ordered By: Art Bianchi on 10-31-2022 Eosinophils/100 WBC (Bld) 1.0 % . [facility] Erythrocyte distribution wid th Auto (RBC) [Ratio]Ordered By: Art Bianchi on 10-31-2022 Erythrocyte distribution width (RBC) [Ratio] 14.0 % 11.9-15.3 [facility] Estimated glomerular filtrat ion rate (GFR) non- AmericanOrdered By: Art Bianchi on 10-31-2022 GFR/1.73 sq M.predicted among non-blacks MDRD (S/P/Bld) [Vol rate/Area] > 60 mL/Min [facility] Globulin Calc (S) [Mass/Vol] Ordered By: Art Bianchi on 10-31-2022 Globulin (S) [Mass/Vol] 3.1 g/dL [facility] HCG ( test) IA.rapi d Ql (U)Ordered By: Art Bianchi on 10-31-2022 HCG ( test) Ql (U) Negative [facility] Hematocrit Auto (Bld) [Volum e fraction]Ordered By: Art Bianchi on 10-31-2022 Hematocrit (Bld) [Volume fraction] 45.0 % 36.0-46.0 [facility] Hemoglobin [Mass/volume] in BloodOrdered By: Art Bianchi on 10-31-2022 Hemoglobin (Bld) [Mass/Vol] 15.2 g/dL 12.0-16.0 [facility] Ketones Auto test strip (U) [Mass/Vol]Ordered By: Art Bianchi on 10-31-2022 Ketones (U) [Mass/Vol] 3+ Negative [facility] Leukocytes [#/volume] correc venkata for nucleated erythrocytes in Blood by Automated counOrdered By: Art Bianchi on 10-31-2022 WBC corrected for nucl RBC Auto (Bld) [#/Vol] 14.0 10*3/uL 4.5-13.5 [facility] Lymphocytes Auto (Bld) [#/Vo l]Ordered By: Art Bianchi on 10-31-2022 Lymphocytes (Bld) [#/Vol] 2.2 10*3/uL 1.20-4.8 [facility] Lymphocytes/100 WBC Auto (Bl d)Ordered By: Art Bianchi on 10-31-2022 Lymphocytes/100 WBC (Bld) 15.5 % . [facility] MCH Auto (RBC) [Entitic mass ]Ordered By: Art Bianchi on 10-31-2022 MCH (RBC) [Entitic mass] 28.6 pg 25.0-35.0 [facility] MCHC Auto (RBC) [Mass/Vol]Or dered By: Art Bianchi on 10-31-2022 MCHC (RBC) [Mass/Vol] 33.7 g/dL 31.0-37.[address] [facility] MCV Auto (RBC) [Entitic vol] Ordered By: Art Bianchi on 10-31-2022 MCV (RBC) [Entitic vol] 85.0 fL 78-102 [facility] Monocyte distribution width [Entitic volume] in Blood by AutomatedOrdered By: Art Bianchi on 10-31-2022 Monocyte distribution width Auto (Bld) [Entitic vol] 14.69 % 0.00-20.00 [facility] Monocytes Auto (Bld) [#/Vol] Ordered By: Art Bianchi on 10-31-2022 Monocytes (Bld) [#/Vol] 1.3 10*3/uL 0.1-1.00 [facility] Monocytes/100 WBC Auto (Bld) Ordered By: Art Bianchi on 10-31-2022 Monocytes/100 WBC (Bld) 9.1 % . [facility] Neutrophils Auto (Bld) [#/Vo l]Ordered By: Art Bianchi on 10-31-2022 Neutrophils (Bld) [#/Vol] 10.4 10*3/uL 1.2-7.7 [facility] Neutrophils/100 WBC Auto (Bl d)Ordered By: Art Bianchi on 10-31-2022 Neutrophils/100 WBC (Bld) 74.1 % . [facility] Nitrite Test strip Ql (U)Ord ered By: Art Bianchi on 10-31-2022 Nitrite Ql (U) Negative Negative [facility] No Panel InformationOrdered By: Art Bianchi on 10-31-2022 0-8 [LPF] 0-8 [facility] > 60 mL/Min [facility] 29.0 U/L 22-51 [facility] 102.97 [facility] Nucleated erythrocytes [Pres ence] in Blood by Automated countOrdered By: Art Bianchi on 10-31-2022 Nucleated RBC Auto Ql (Bld) 0.1 /100{WBC} 0-0.5 [facility] Platelet mean volume Auto (B ld) [Entitic vol]Ordered By: Art Bianchi on 10-31-2022 Platelet mean volume (Bld) [Entitic vol] 8.3 fL 6.3-10.7 [facility] Platelets Auto (Bld) [#/Vol] Ordered By: Art Bianchi on 10-31-2022 Platelets (Bld) [#/Vol] 337 10*3/uL 150-450 [facility] Protein Auto test strip (U) [Mass/Vol]Ordered By: Art Bianchi on 10-31-2022 Protein (U) [Mass/Vol] 100 mg/dL Negative [facility] Protein [Mass/volume] in Ser um or PlasmaOrdered By: Art Bianchi on 10-31-2022 Protein [Mass/Vol] 8.2 g/dL 6.1-7.9 [facility] RBC Auto (Bld) [#/Vol]Ordere d By: Art Bianchi on 10-31-2022 RBC (Bld) [#/Vol] 5.29 10*6/uL 4.10-5.10 [facility] Serum or plasma alanine florez otransferase measurement without P-5'-P (enzymatic activiOrdered By: Art Bianchi on 10-31-2022 ALT No additional P-5'-P [Catalytic activity/Vol] 25 U/L 10-60 [facility] Serum or plasma albumin/glob ulin mass ratioOrdered By: Art Bianchi on 10-31-2022 Albumin/Globulin [Mass ratio] 1.6 {ratio} [facility] Serum or plasma alkaline justin sphatase measurement (enzymatic activity/volume)Ordered By: Art Bianchi on 10-31-2022 ALP [Catalytic activity/Vol] 62 U/L 32-92 [facility] Serum or plasma anion gap de terminationOrdered By: Art Bianchi on 10-31-2022 Anion gap [Moles/Vol] 16.8 mmol/L 6.0-15.0 [facility] Serum or plasma aspartate am inotransferase measurement (enzymatic activity/volume)Ordered By: Art Bianchi on 10-31-2022 AST [Catalytic activity/Vol] 25 U/L 10-42 [facility] Serum or plasma calcium tammy urement (mass/volume)Ordered By: Art Bianchi on 10-31-2022 Calcium [Mass/Vol] 9.9 mg/dL 8.2-10.2 [facility] Serum or plasma chloride judy surement (moles/volume)Ordered By: Art Bianchi on 10-31-2022 Chloride [Moles/Vol] 96 mmol/L 95-114 [facility] Serum or plasma creatinine m easurement with calculation of estimated glomerular filtrOrdered By: Art Bianchi on 10-31-2022 Creatinine and Glomerular filtration rate.predicted panel (S/P/Bld) 0.89 mg/dL 0.44-1.03 [facility] Serum or plasma glucose tammy urement (mass/volume)Ordered By: Art Bianchi on 10-31-2022 Glucose [Mass/Vol] 120 mg/dL 70-100 [facility] Serum or plasma potassium me asurement (moles/volume)Ordered By: Art Bianchi on 10-31-2022 Potassium [Moles/Vol] 3.2 mmol/L 3.5-5.[address] [facility] Serum or plasma sodium measu rement (moles/volume)Ordered By: Art Bianchi on 10-31-2022 Sodium [Moles/Vol] 132 mmol/L 136-146 [facility] Serum or plasma total biliru bin measurement (mass/volume)Ordered By: Art Bianchi on 10-31-2022 Bilirubin [Mass/Vol] 1.7 mg/dL 0.3-1.2 [facility] Serum or plasma total carbon dioxide measurement (moles/volume)Ordered By: Art Bianchi on 10-31-2022 CO2 [Moles/Vol] 22.4 mmol/L 22.0-30.0 [facility] Serum or plasma urea nitroge n measurement (mass/volume)Ordered By: Art Bianchi on 10-31-2022 Urea nitrogen [Mass/Vol] 28 mg/dL 9-23 [facility] Specific gravity Auto test s trip (U) [Rel density]Ordered By: Art Bianchi on 10-31-2022 Specific gravity (U) [Rel density] 1.030 1.001-1.03 0 [facility] Squamous epithelial cells de tection in urine sediment by light microscopyOrdered By: Art Bianchi on 10-31-2022 Epithelial cells.squamous LM Ql (Urine sed) 10-19 [HPF] 0-2 [facility] Urine bacteria detection by automated methodOrdered By: Art Bianchi on 10-31-2022 Bacteria Auto Ql (U) None seen None Seen [facility] Urine clarity by refractomet ry automatedOrdered By: Art Bianchi on 10-31-2022 Clarity Refractometry automated (U) Cloudy Clear [facility] Urine culture routineOrdered By: Art Bianchi on 10-31-2022 Bacteria identified Cx Nom (U) 2 Days [facility] Urine glucose measurement by automated test strip (mass/volume)Ordered By: Art Bianchi on 10-31-2022 Glucose Auto test strip (U) [Mass/Vol] Normal mg/dL Normal [facility] Urine hemoglobin detection b y automated test stripOrdered By: Art Bianchi on 10-31-2022 Hemoglobin Auto test strip Ql (U) 3+ Negative [facility] Urine leukocyte esterase det ection by automated test stripOrdered By: Art Bianchi on 10-31-2022 Leukocyte esterase Auto test strip Ql (U) 2+ Negative [facility] Urobilinogen Auto test strip (U) [Mass/Vol]Ordered By: Art Bianchi on 10-31-2022 Urobilinogen (U) [Mass/Vol] Normal mg/dL Normal [facility] WBC Auto (Bld) [#/Vol]Ordere d By: Art Bianchi on 10-31-2022 WBC (Bld) [#/Vol] 14.0 10*3/uL 4.5-13.5 [facility] pH Auto test strip (U)Ordere d By: Art Bianchi on 10-31-2022 pH (U) 6.5 [pH] 5.0-9.0 [facility] Basophils Auto (Bld) [#/Vol] Ordered By: Ravi Arguello on 10-29-2022 Basophils (Bld) [#/Vol] 0.0 10*3/uL 0.0-0.1 [facility] Basophils/100 WBC Auto (Bld) Ordered By: Ravi Argulelo on 10-29-2022 Basophils/100 WBC (Bld) 0.3 % . [facility] Body fluid albumin measureme nt (mass/volume)Ordered By: Ravi Arguello on 10-29-2022 Albumin (Body fld) [Mass/Vol] 5.2 g/dL 3.2-5.5 [facility] Creatinine and Glomerular fi ltration rate.predicted panel (S/P/Bld)Ordered By: Ravi Arguello on 10-29-2022 Creatinine [Mass/Vol] 0.85 mg/dL 0.44-1.[address] [facility] Direct bilirubin measurement Ordered By: Ravi Arguello on 10-29-2022 Bilirubin.direct [Mass/Vol] 0.1 mg/dL 0.0-0.4 [facility] Eosinophils Auto (Bld) [#/Vo l]Ordered By: Ravi Arguello on 10-29-2022 Eosinophils (Bld) [#/Vol] 0.0 10*3/uL 0.0-0.7 [facility] Eosinophils/100 WBC Auto (Bl d)Ordered By: Ravi Arguello on 10-29-2022 Eosinophils/100 WBC (Bld) 0.1 % . [facility] Erythrocyte distribution wid th Auto (RBC) [Ratio]Ordered By: Ravi Arguello on 10-29-2022 Erythrocyte distribution width (RBC) [Ratio] 14.4 % 11.9-15.3 [facility] Estimated glomerular filtrat ion rate (GFR) non- AmericanOrdered By: Ravi Arguello on 10-29-2022 GFR/1.73 sq M.predicted among non-blacks MDRD (S/P/Bld) [Vol rate/Area] > 60 mL/Min [facility] Globulin Calc (S) [Mass/Vol] Ordered By: Ravi Arguello on 10-29-2022 Globulin (S) [Mass/Vol] 3.7 g/dL [facility] Hematocrit Auto (Bld) [Volum e fraction]Ordered By: Ravi Arguello on 10-29-2022 Hematocrit (Bld) [Volume fraction] 42.9 % 36.0-46.0 [facility] Hemoglobin [Mass/volume] in BloodOrdered By: Ravi Arguello on 10-29-2022 Hemoglobin (Bld) [Mass/Vol] 14.3 g/dL 12.0-16.0 [facility] Laboratory - Chemistry and C hemistry - challengeOrdered By: Ravi Arguello on 10-29-2022 Lipase [Catalytic activity/Vol] 25.0 U/L 22-51 [facility] Leukocytes [#/volume] correc venkata for nucleated erythrocytes in Blood by Automated counOrdered By: Ravi Arguello on 10-29-2022 WBC corrected for nucl RBC Auto (Bld) [#/Vol] 13.7 10*3/uL 4.5-13.5 [facility] Lymphocytes Auto (Bld) [#/Vo l]Ordered By: Ravi Arguello on 10-29-2022 Lymphocytes (Bld) [#/Vol] 1.7 10*3/uL 1.20-4.8 [facility] Lymphocytes/100 WBC Auto (Bl d)Ordered By: Ravi Arguello on 10-29-2022 Lymphocytes/100 WBC (Bld) 12.4 % . [facility] MCH Auto (RBC) [Entitic mass ]Ordered By: Ravi Arguello on 10-29-2022 MCH (RBC) [Entitic mass] 28.4 pg 25.0-35.0 [facility] MCHC Auto (RBC) [Mass/Vol]Or dered By: Ravi Arguello on 10-29-2022 MCHC (RBC) [Mass/Vol] 33.3 g/dL 31.0-37.[address] [facility] MCV Auto (RBC) [Entitic vol] Ordered By: Ravi Arguello on 10-29-2022 MCV (RBC) [Entitic vol] 85.1 fL 78-102 [facility] Monocyte distribution width [Entitic volume] in Blood by AutomatedOrdered By: Ravi Arguello on 10-29-2022 Monocyte distribution width Auto (Bld) [Entitic vol] 16.57 % 0.00-20.00 [facility] Monocytes Auto (Bld) [#/Vol] Ordered By: Ravi Arguello on 10-29-2022 Monocytes (Bld) [#/Vol] 0.9 10*3/uL 0.1-1.00 [facility] Monocytes/100 WBC Auto (Bld) Ordered By: Ravi Arguello on 10-29-2022 Monocytes/100 WBC (Bld) 6.8 % . [facility] Neutrophils Auto (Bld) [#/Vo l]Ordered By: Ravi Arguello on 10-29-2022 Neutrophils (Bld) [#/Vol] 11.0 10*3/uL 1.2-7.7 [facility] Neutrophils/100 WBC Auto (Bl d)Ordered By: Ravi Arguello on 10-29-2022 Neutrophils/100 WBC (Bld) 80.4 % . [facility] No Panel InformationOrdered By: Ravi Arguello on 10-29-2022 Estimated GFR () > 60 mL/Min [facility] Comment on above: GFR estimated refere nce range: According to KDOQI guidelines, <60 ml/min/1.73m2 is sufficient to diagnose a patient with chronic kidney disease. Pharmacy Creatinine Clearance (Chem 105.83 [facility] > 60 mL/Min [facility] 25.0 U/L 22-51 [facility] 105.83 [facility] Nucleated erythrocytes [Pres ence] in Blood by Automated countOrdered By: Ravi Arguello on 10-29-2022 Nucleated RBC Auto Ql (Bld) 0.0 /100{WBC} 0-0.5 [facility] Platelet mean volume Auto (B ld) [Entitic vol]Ordered By: Ravi Arguello on 10-29-2022 Platelet mean volume (Bld) [Entitic vol] 8.4 fL 6.3-10.7 [facility] Platelets Auto (Bld) [#/Vol] Ordered By: Ravi Agruello on 10-29-2022 Platelets (Bld) [#/Vol] 355 10*3/uL 150-450 [facility] Protein [Mass/volume] in Ser um or PlasmaOrdered By: Ravi Arguello on 10-29-2022 Protein [Mass/Vol] 8.9 g/dL 6.1-7.9 [facility] RBC Auto (Bld) [#/Vol]Ordere d By: Ravi Arguello on 10-29-2022 RBC (Bld) [#/Vol] 5.04 10*6/uL 4.10-5.10 [facility] Serum or plasma alanine florez otransferase measurement without P-5'-P (enzymatic activiOrdered By: Ravi Arguello on 10-29-2022 ALT No additional P-5'-P [Catalytic activity/Vol] 24 U/L 10-60 [facility] Serum or plasma albumin/glob ulin mass ratioOrdered By: Ravi Arguello on 10-29-2022 Albumin/Globulin [Mass ratio] 1.4 {ratio} [facility] Serum or plasma alkaline justin sphatase measurement (enzymatic activity/volume)Ordered By: Ravi Arguello on 10-29-2022 ALP [Catalytic activity/Vol] 68 U/L 32-92 [facility] Serum or plasma anion gap de terminationOrdered By: Ravi Arguello on 10-29-2022 Anion gap [Moles/Vol] 19.9 mmol/L 6.0-15.0 [facility] Serum or plasma aspartate am inotransferase measurement (enzymatic activity/volume)Ordered By: Ravi Arguello on 10-29-2022 AST [Catalytic activity/Vol] 20 U/L 10-42 [facility] Serum or plasma calcium tammy urement (mass/volume)Ordered By: Ravi Arguello on 10-29-2022 Calcium [Mass/Vol] 10.4 mg/dL 8.2-10.2 [facility] Serum or plasma chloride judy surement (moles/volume)Ordered By: Ravi Arguello on 10-29-2022 Chloride [Moles/Vol] 100 mmol/L 95-114 [facility] Serum or plasma creatinine m easurement with calculation of estimated glomerular filtrOrdered By: Ravi Arguello on 10-29-2022 Creatinine and Glomerular filtration rate.predicted panel (S/P/Bld) 0.85 mg/dL 0.44-1.03 [facility] Serum or plasma glucose tammy urement (mass/volume)Ordered By: Ravi Arguello on 10-29-2022 Glucose [Mass/Vol] 114 mg/dL 70-100 [facility] Comment on above: ADA recommended refe rence rangeRandom Glucose Reference Range is dependent on time and content of last meal. Glucose of more than 200 mg/dL in a nonstressed, ambulatory subject supports the diagnosis of Diabetes Mellitus. Serum or plasma non-glucuron idated bilirubin measurement (mass/volume)Ordered By: Ravi Arguello on 10-29-2022 Bilirubin.indirect [Mass/Vol] 1.1 mg/dL [facility] Serum or plasma potassium me asurement (moles/volume)Ordered By: Ravi Arguello on 10-29-2022 Potassium [Moles/Vol] 3.3 mmol/L 3.5-5.[address] [facility] Serum or plasma sodium measu rement (moles/volume)Ordered By: Ravi Arguello on 10-29-2022 Sodium [Moles/Vol] 137 mmol/L 136-146 [facility] Serum or plasma total biliru bin measurement (mass/volume)Ordered By: Ravi Arguello on 10-29-2022 Bilirubin [Mass/Vol] 1.2 mg/dL 0.3-1.2 [facility] Serum or plasma total carbon dioxide measurement (moles/volume)Ordered By: Ravi Arguello on 10-29-2022 CO2 [Moles/Vol] 20.4 mmol/L 22.0-30.0 [facility] Serum or plasma urea nitroge n measurement (mass/volume)Ordered By: Ravi Arguello on 10-29-2022 Urea nitrogen [Mass/Vol] 21 mg/dL 9-23 [facility] WBC Auto (Bld) [#/Vol]Ordere d By: Ravi Arguello on 10-29-2022 WBC (Bld) [#/Vol] 13.7 10*3/uL 4.5-13.5 [facility] Basophils Auto (Bld) [#/Vol] Ordered By: Modesta Chand on 08-27-2022 Basophils (Bld) [#/Vol] 0.0 10*3/uL 0.0-0.1 [facility] Basophils/100 WBC Auto (Bld) Ordered By: Modesta Chand on 08-27-2022 Basophils/100 WBC (Bld) 0.3 % . [facility] Body fluid albumin measureme nt (mass/volume)Ordered By: Modesta Chand on 08-27-2022 Albumin (Body fld) [Mass/Vol] 4.7 g/dL 3.2-5.5 [facility] Creatinine and Glomerular fi ltration rate.predicted panel (S/P/Bld)Ordered By: Modesta Chand on 08-27-2022 Creatinine [Mass/Vol] 0.90 mg/dL 0.44-1.[address] [facility] Eosinophils Auto (Bld) [#/Vo l]Ordered By: Modesta Chand on 08-27-2022 Eosinophils (Bld) [#/Vol] 0.3 10*3/uL 0.0-0.7 [facility] Eosinophils/100 WBC Auto (Bl d)Ordered By: Modesta Chand on 08-27-2022 Eosinophils/100 WBC (Bld) 2.2 % . [facility] Erythrocyte distribution wid th Auto (RBC) [Ratio]Ordered By: Modesta Chand on 08-27-2022 Erythrocyte distribution width (RBC) [Ratio] 14.0 % 11.9-15.3 [facility] Estimated glomerular filtrat ion rate (GFR) non- AmericanOrdered By: Modesta Chand on 08-27-2022 GFR/1.73 sq M.predicted among non-blacks MDRD (S/P/Bld) [Vol rate/Area] > 60 mL/Min [facility] Globulin Calc (S) [Mass/Vol] Ordered By: Modesta Chand on 08-27-2022 Globulin (S) [Mass/Vol] 2.5 g/dL [facility] Hematocrit Auto (Bld) [Volum e fraction]Ordered By: Modesta Chand on 08-27-2022 Hematocrit (Bld) [Volume fraction] 46.5 % 36.0-46.0 [facility] Hemoglobin [Mass/volume] in BloodOrdered By: Modesta Chand on 08-27-2022 Hemoglobin (Bld) [Mass/Vol] 15.6 g/dL 12.0-16.0 [facility] Laboratory - Chemistry and C hemistry - challengeOrdered By: Modesta Chand on 08-27-2022 Lipase [Catalytic activity/Vol] 27.0 U/L 22-51 [facility] Laboratory - Hematology and Cell countsOrdered By: Modesta Chand on 08-27-2022 Nucleated RBC/100 WBC (Bld) [Ratio] 0.1 % 0-0.5 [facility] Leukocytes [#/volume] in Blo od by Automated countOrdered By: Modesta Chand on 08-27-2022 WBC (Bld) [#/Vol] 13.4 10*3/uL 4.5-13.5 [facility] Lymphocytes Auto (Bld) [#/Vo l]Ordered By: Modesta Chand on 08-27-2022 Lymphocytes (Bld) [#/Vol] 3.1 10*3/uL 1.20-4.8 [facility] Lymphocytes/100 WBC Auto (Bl d)Ordered By: Modesta Chand on 08-27-2022 Lymphocytes/100 WBC (Bld) 22.9 % . [facility] MCH Auto (RBC) [Entitic mass ]Ordered By: Modesta Chand on 08-27-2022 MCH (RBC) [Entitic mass] 28.4 pg 25.0-35.0 [facility] MCHC Auto (RBC) [Mass/Vol]Or dered By: Modesta Chand on 08-27-2022 MCHC (RBC) [Mass/Vol] 33.5 g/dL 31.0-37.[address] [facility] MCV Auto (RBC) [Entitic vol] Ordered By: Modesta Chand on 08-27-2022 MCV (RBC) [Entitic vol] 84.8 fL 78-102 [facility] Monocytes Auto (Bld) [#/Vol] Ordered By: Modesta Chand on 08-27-2022 Monocytes (Bld) [#/Vol] 1.2 10*3/uL 0.1-1.00 [facility] Monocytes/100 WBC Auto (Bld) Ordered By: Modesta Chand on 08-27-2022 Monocytes/100 WBC (Bld) 9.1 % . [facility] Neutrophils Auto (Bld) [#/Vo l]Ordered By: Modesta Chand on 08-27-2022 Neutrophils (Bld) [#/Vol] 8.8 10*3/uL 1.2-7.7 [facility] Neutrophils/100 WBC Auto (Bl d)Ordered By: Modesta Chand on 08-27-2022 Neutrophils/100 WBC (Bld) 65.5 % . [facility] No Panel InformationOrdered By: Modesta Chand on 08-27-2022 Estimated GFR () > 60 mL/Min [facility] Comment on above: GFR estimated refere nce range: According to KDOQI guidelines, <60 ml/min/1.73m2 is sufficient to diagnose a patient with chronic kidney disease. Pharmacy Creatinine Clearance (Chem N/A [facility] 13.4 10*3/uL 4.5-13.5 [facility] 0.1 % 0-0.5 [facility] > 60 mL/Min [facility] 27.0 U/L 22-51 [facility] N/A [facility] Platelet mean volume Auto (B ld) [Entitic vol]Ordered By: Modesta Chand on 08-27-2022 Platelet mean volume (Bld) [Entitic vol] 8.9 fL 6.3-10.7 [facility] Platelets Auto (Bld) [#/Vol] Ordered By: Modesta Chand on 08-27-2022 Platelets (Bld) [#/Vol] 373 10*3/uL 150-450 [facility] Protein [Mass/volume] in Ser um or PlasmaOrdered By: Modesta Chand on 08-27-2022 Protein [Mass/Vol] 7.2 g/dL 6.1-7.9 [facility] RBC Auto (Bld) [#/Vol]Ordere d By: Modesta Chand on 08-27-2022 RBC (Bld) [#/Vol] 5.49 10*6/uL 4.10-5.10 [facility] Serum or plasma alanine florez otransferase measurement without P-5'-P (enzymatic activiOrdered By: Modesta Chand on 08-27-2022 ALT No additional P-5'-P [Catalytic activity/Vol] 20 U/L 10-60 [facility] Serum or plasma albumin/glob ulin mass ratioOrdered By: Modesta Chand on 08-27-2022 Albumin/Globulin [Mass ratio] 1.9 {ratio} [facility] Serum or plasma alkaline justin sphatase measurement (enzymatic activity/volume)Ordered By: Modesta Chand on 08-27-2022 ALP [Catalytic activity/Vol] 63 U/L 32-92 [facility] Serum or plasma amylase tammy urement (enzymatic activity/volume)Ordered By: Modesta Chand on 08-27-2022 Amylase [Catalytic activity/Vol] 25 U/L 28-100 [facility] Serum or plasma anion gap de terminationOrdered By: Modesta Chand on 08-27-2022 Anion gap [Moles/Vol] 22.5 mmol/L 6.0-15.0 [facility] Serum or plasma aspartate am inotransferase measurement (enzymatic activity/volume)Ordered By: Mdoesta Chand on 08-27-2022 AST [Catalytic activity/Vol] 18 U/L 10-42 [facility] Serum or plasma calcium tammy urement (mass/volume)Ordered By: Modesta Chand on 08-27-2022 Calcium [Mass/Vol] 10.1 mg/dL 8.2-10.2 [facility] Serum or plasma chloride judy surement (moles/volume)Ordered By: Modesta Chand on 08-27-2022 Chloride [Moles/Vol] 89 mmol/L 95-114 [facility] Serum or plasma creatinine m easurement with calculation of estimated glomerular filtrOrdered By: Modesta Chand on 08-27-2022 Creatinine and Glomerular filtration rate.predicted panel (S/P/Bld) 0.90 mg/dL 0.44-1.03 [facility] Serum or plasma glucose tammy urement (mass/volume)Ordered By: Modesta Chand on 08-27-2022 Glucose [Mass/Vol] 76 mg/dL 70-100 [facility] Comment on above: ADA recommended refe rence rangeRandom Glucose Reference Range is dependent on time and content of last meal. Glucose of more than 200 mg/dL in a nonstressed, ambulatory subject supports the diagnosis of Diabetes Mellitus. Serum or plasma potassium me asurement (moles/volume)Ordered By: Modesta Chand on 08-27-2022 Potassium [Moles/Vol] 3.7 mmol/L 3.5-5.[address] [facility] Serum or plasma sodium measu rement (moles/volume)Ordered By: Modesta Chand on 08-27-2022 Sodium [Moles/Vol] 131 mmol/L 136-146 [facility] Serum or plasma total biliru [...] on 08-27-2022 CO2 [Moles/Vol] 23.2 mmol/L 22.0-30.0 [facility] Serum or plasma urea nitroge n measurement (mass/volume)Ordered By: Modesta Chand on 08-27-2022 Urea nitrogen [Mass/Vol] 15 mg/dL 08-20 [facility] Basophils Auto (Bld) [#/Vol] Ordered By: Gregorio Carey on 08-22-2022 Basophils (Bld) [#/Vol] 0.0 10*3/uL 0.0-0.1 [facility] Basophils/100 WBC Auto (Bld) Ordered By: Gregorio Carey on 08-22-2022 Basophils/100 WBC (Bld) 0.3 % . [facility] Blood hemoglobin measurement (mass/volume)Ordered By: Gregorio Carey on 08-22-2022 Hemoglobin (Bld) [Mass/Vol] 13.1 g/dL 12.0-16.0 [facility] Blood leukocytes automated c ount (number/volume)Ordered By: Gregorio Carey on 08-22-2022 WBC (Bld) [#/Vol] 9.7 10*3/uL 4.5-13.5 [facility] Creatinine and Glomerular fi ltration rate.predicted panel (S/P/Bld)Ordered By: Gregorio Carey on 08-22-2022 Creatinine [Mass/Vol] 0.75 mg/dL 0.44-1.[address] [facility] Eosinophils Auto (Bld) [#/Vo l]Ordered By: Gregorio Carey on 08-22-2022 Eosinophils (Bld) [#/Vol] 0.1 10*3/uL 0.0-0.7 [facility] Eosinophils/100 WBC Auto (Bl d)Ordered By: Gregorio Carey on 08-22-2022 Eosinophils/100 WBC (Bld) 1.0 % . [facility] Erythrocyte distribution wid th Auto (RBC) [Ratio]Ordered By: Gregorio Carey on 08-22-2022 Erythrocyte distribution width (RBC) [Ratio] 14.1 % 11.9-15.3 [facility] Estimated glomerular filtrat ion rate (GFR) non- AmericanOrdered By: Gregorio Carey on 08-22-2022 GFR/1.73 sq M.predicted among non-blacks MDRD (S/P/Bld) [Vol rate/Area] > 60 mL/Min [facility] Hematocrit Auto (Bld) [Volum e fraction]Ordered By: Gregorio Carey on 08-22-2022 Hematocrit (Bld) [Volume fraction] 39.6 % 36.0-46.0 [facility] Laboratory - Hematology and Cell countsOrdered By: Gregorio Carey on 08-22-2022 Nucleated RBC/100 WBC (Bld) [Ratio] 0.0 % 0-0.5 [facility] Lymphocytes Auto (Bld) [#/Vo l]Ordered By: Gregorio Carey on 08-22-2022 Lymphocytes (Bld) [#/Vol] 2.0 10*3/uL 1.20-4.8 [facility] Lymphocytes/100 WBC Auto (Bl d)Ordered By: Gregorio Carey on 08-22-2022 Lymphocytes/100 WBC (Bld) 20.5 % . [facility] MCH Auto (RBC) [Entitic mass ]Ordered By: Gregorio Carey on 08-22-2022 MCH (RBC) [Entitic mass] 28.0 pg 25.0-35.0 [facility] MCHC Auto (RBC) [Mass/Vol]Or dered By: Gregorio Carey on 08-22-2022 MCHC (RBC) [Mass/Vol] 33.2 g/dL 31.0-37.[address] [facility] MCV Auto (RBC) [Entitic vol] Ordered By: Gregorio Carey on 08-22-2022 MCV (RBC) [Entitic vol] 84.5 fL 78-102 [facility] Monocytes Auto (Bld) [#/Vol] Ordered By: Gregorio Carey on 08-22-2022 Monocytes (Bld) [#/Vol] 0.8 10*3/uL 0.1-1.00 [facility] Monocytes/100 WBC Auto (Bld) Ordered By: Gregorio Carey on 08-22-2022 Monocytes/100 WBC (Bld) 8.0 % . [facility] Neutrophils Auto (Bld) [#/Vo l]Ordered By: Gregorio Carey on 08-22-2022 Neutrophils (Bld) [#/Vol] 6.8 10*3/uL 1.2-7.7 [facility] Neutrophils/100 WBC Auto (Bl d)Ordered By: Gregorio Carey on 08-22-2022 Neutrophils/100 WBC (Bld) 70.2 % . [facility] No Panel InformationOrdered By: Gregorio Carey on 08-22-2022 Estimated GFR () > 60 mL/Min [facility] Comment on above: GFR estimated refere nce range: According to KDOQI guidelines, <60 ml/min/1.73m2 is sufficient to diagnose a patient with chronic kidney disease. Pharmacy Creatinine Clearance (Chem 117.26 [facility] 9.7 10*3/uL 4.5-13.5 [facility] 0.0 % 0-0.5 [facility] > 60 mL/Min [facility] 117.26 [facility] Platelet mean volume Auto (B ld) [Entitic vol]Ordered By: Gregorio Carey on 08-22-2022 Platelet mean volume (Bld) [Entitic vol] 8.6 fL 6.3-10.7 [facility] Platelets Auto (Bld) [#/Vol] Ordered By: Gregorio Carey on 08-22-2022 Platelets (Bld) [#/Vol] 246 10*3/uL 150-450 [facility] RBC Auto (Bld) [#/Vol]Ordere d By: Gregorio Carey on 08-22-2022 RBC (Bld) [#/Vol] 4.69 10*6/uL 4.10-5.10 [facility] Serum nuclear antibody titer Ordered By: Gregorio Carey on 08-22-2022 Nuclear Ab (S) [Titer] Negative . [facility] Comment on above: Negative <1:80 Borde rline 1:80 Positive >1:80ICAP nomenclature: [id number] more information about Hep-2 cell patterns useANApatterns.org, the official website for theInternational Consensus on Antinuclear Antibody (EDMOND)Patterns (ICAP).Performed at: [address] [id number] Director: James Nelson PhD, Phone: [phone] Serum or plasma anion gap de terminationOrdered By: Gregorio Carey on 08-22-2022 Anion gap [Moles/Vol] 17.0 mmol/L 6.0-15.0 [facility] Serum or plasma beta choriog onadotropin measurement (units/volume)Ordered By: Gregorio Carey on 08-22-2022 HCG.beta subunit Qn m[IU]/mL [facility] Comment on above: Approximate Approxim ate [...] on 08-22-2022 Calcium [Mass/Vol] 9.4 mg/dL 8.2-10.2 [facility] Serum or plasma chloride judy surement (moles/volume)Ordered By: Gregorio Carey on 08-22-2022 Chloride [Moles/Vol] 99 mmol/L 95-114 [facility] Serum or plasma creatinine m easurement with calculation of estimated glomerular filtrOrdered By: Gregorio Carey on 08-22-2022 Creatinine and Glomerular filtration rate.predicted panel (S/P/Bld) 0.75 mg/dL 0.44-1.03 [facility] Serum or plasma glucose tammy urement (mass/volume)Ordered By: Gregorio Carey on 08-22-2022 Glucose [Mass/Vol] 90 mg/dL 70-100 [facility] Comment on above: ADA recommended refe [...] on 08-22-2022 Potassium [Moles/Vol] 3.8 mmol/L 3.5-5.[address] [facility] Serum or plasma sodium measu rement (moles/volume)Ordered By: Gregorio Carey on 08-22-2022 Sodium [Moles/Vol] 134 mmol/L 136-146 [facility] Serum or plasma total carbon dioxide measurement (moles/volume)Ordered By: Gregorio Carey on 08-22-2022 CO2 [Moles/Vol] 21.8 mmol/L 22.0-30.0 [facility] Serum or plasma urea nitroge n measurement (mass/volume)Ordered By: Gregorio Carey on 08-22-2022 Urea nitrogen [Mass/Vol] 7 mg/dL 08-20 [facility] Urine culture routineOrdered By: Gregorio Carey on 08-22-2022 Bacteria identified Cx Nom (U) 2 Days [facility] Urine culture routineOrdered By: Gilson Castro on 08-22-2022 Bacteria identified Cx Nom (U) 2 Days [facility] Urine culture routineOrdered By: Colten Fry on 08-21-2022 Bacteria identified Cx Nom (U) 2 Days [facility] Amphetamine Screen Ql (U)Ord ered By: Gilson Castro on 08-20-2022 Amphetamines Ql (U) Negative Negative [facility] Automated erythrocytes count in urine sediment (number/area)Ordered By: Gilson Castro on 08-20-2022 RBC Auto (Urine sed) [#/Area] None seen [HPF] 0-4 [facility] Automated leukocytes count i n urine sediment (number/area)Ordered By: Gilson Castro on 08-20-2022 WBC Auto (Urine sed) [#/Area] 1-2 [HPF] 0-4 [facility] Barbiturates [Presence] in U rineOrdered By: Gilson Castro on 08-20-2022 Barbiturates Ql (U) Positive Negative [facility] Basophils Auto (Bld) [#/Vol] Ordered By: Gilson Castro on 08-20-2022 Basophils (Bld) [#/Vol] 0.0 10*3/uL 0.0-0.1 [facility] Basophils/100 WBC Auto (Bld) Ordered By: Gilson Castro on 08-20-2022 Basophils/100 WBC (Bld) 0.4 % . [facility] Benzodiazepines [Presence] i n UrineOrdered By: Gilson Castro on 08-20-2022 Benzodiazepines Ql (U) Negative Negative [facility] Bilirubin Test strip Ql (U)O rdered By: Gilson Castro on 08-20-2022 Bilirubin Ql (U) Negative Negative [facility] Blood anisocytosis detection Ordered By: Gilson Castro on 08-20-2022 Anisocytosis Ql (Bld) Slight [facility] Blood hemoglobin measurement (mass/volume)Ordered By: Gilson Castro on 08-20-2022 Hemoglobin (Bld) [Mass/Vol] 12.1 g/dL 12.0-16.0 [facility] Blood leukocytes automated c ount (number/volume)Ordered By: Gilson Castro on 08-20-2022 WBC (Bld) [#/Vol] 10.9 10*3/uL 4.5-13.5 [facility] COVID-19 Positive/NegativeOr dered By: Ravi Arguello on 08-20-2022 SARS-CoV-2 (COVID-19) N gene JANAK+probe Ql (Resp) Negative Negative [facility] Comment on above: Testing for SARS-CoV -2 by RT-PCR This test was developed and its performance characteristics determined by [employer] ([employer]) and validated at the [facility]. This test has not been [...] and its performance characteristics determined by [employer] ([employer]) and validated at the [facility]. This test has not been [...] (COVID-19) Ag IA.rapid Ql (Resp) Negative Negative [facility] Comment on above: This is a duplicate [employer] SARS Antigen (JOSE A) result to be used for statistical tracking purpose only. Cannabinoids [Presence] in U rine by Screen methodOrdered By: Gilson Castro on 08-20-2022 Cannabinoids Screen Ql (U) Positive Negative [facility] Comment on above: These are [...] Castro on 08-20-2022 Color (U) Yellow Yellow [facility] Creatinine and Glomerular fi ltration rate.predicted panel (S/P/Bld)Ordered By: Gilson Castro on 08-20-2022 Creatinine [Mass/Vol] 0.65 mg/dL 0.44-1.[address] [facility] Eosinophils Auto (Bld) [#/Vo l]Ordered By: Gilson Castro on 08-20-2022 Eosinophils (Bld) [#/Vol] 0.0 10*3/uL 0.0-0.7 [facility] Eosinophils/100 WBC Auto (Bl d)Ordered By: Gilson Castro on 08-20-2022 Eosinophils/100 WBC (Bld) 0.3 % . [facility] Erythrocyte distribution wid th Auto (RBC) [Ratio]Ordered By: Gilson Castro on 08-20-2022 Erythrocyte distribution width (RBC) [Ratio] 13.9 % 11.9-15.3 [facility] Estimated glomerular filtrat ion rate (GFR) non- AmericanOrdered By: Gilson Castro on 08-20-2022 GFR/1.73 sq M.predicted among non-blacks MDRD (S/P/Bld) [Vol rate/Area] > 60 mL/Min [facility] Hematocrit Auto (Bld) [Volum e fraction]Ordered By: Gilson Castro on 08-20-2022 Hematocrit (Bld) [Volume fraction] 36.8 % 36.0-46.0 [facility] Ketones Auto test strip (U) [Mass/Vol]Ordered By: Gilson Castro on 08-20-2022 Ketones (U) [Mass/Vol] 2+ Negative [facility] Laboratory - Chemistry and C hemistry - challengeOrdered By: Gilson Castro on 08-20-2022 Magnesium [Mass/Vol] 1.9 mg/dL 1.6-2.6 [facility] Laboratory - Drug toxicology Ordered By: Gilson Castro on 08-20-2022 Opiates Ql (U) Negative Negative [facility] Laboratory - Hematology and Cell countsOrdered By: Gilson Castro on 08-20-2022 Nucleated RBC/100 WBC (Bld) [Ratio] 0.0 % 0-0.5 [facility] Laboratory - UrinalysisOrder ed By: Gilson Castro on 08-20-2022 Hyaline casts LM Ql (Urine sed) None seen [LPF] 0-8 [facility] Lymphocytes Auto (Bld) [#/Vo l]Ordered By: Gilson Castro on 08-20-2022 Lymphocytes (Bld) [#/Vol] 1.3 10*3/uL 1.20-4.8 [facility] Lymphocytes/100 WBC Auto (Bl d)Ordered By: Gilson Castro on 08-20-2022 Lymphocytes/100 WBC (Bld) 11.5 % . [facility] MCH Auto (RBC) [Entitic mass ]Ordered By: Gilson Castro on 08-20-2022 MCH (RBC) [Entitic mass] 28.1 pg 25.0-35.0 [facility] MCHC Auto (RBC) [Mass/Vol]Or dered By: Gilson Castro on 08-20-2022 MCHC (RBC) [Mass/Vol] 32.9 g/dL 31.0-37.[address] [facility] MCV Auto (RBC) [Entitic vol] Ordered By: Gilson Castro on 08-20-2022 MCV (RBC) [Entitic vol] 85.5 fL 78-102 [facility] Monocytes Auto (Bld) [#/Vol] Ordered By: Gilson Castro on 08-20-2022 Monocytes (Bld) [#/Vol] 0.4 10*3/uL 0.1-1.00 [facility] Monocytes/100 WBC Auto (Bld) Ordered By: Gilson Castro on 08-20-2022 Monocytes/100 WBC (Bld) 3.7 % . [facility] Neutrophils Auto (Bld) [#/Vo l]Ordered By: Gilson Castro on 08-20-2022 Neutrophils (Bld) [#/Vol] 9.2 10*3/uL 1.2-7.7 [facility] Neutrophils/100 WBC Auto (Bl d)Ordered By: Gilson Castro on 08-20-2022 Neutrophils/100 WBC (Bld) 84.1 % . [facility] Nitrite Test strip Ql (U)Ord ered By: Gilson Castro on 08-20-2022 Nitrite Ql (U) Negative Negative [facility] No Panel InformationOrdered By: Gilson Castro on 08-20-2022 None seen [LPF] 0-8 [facility] Negative Negative [facility] Estimated GFR () > 60 mL/Min [facility] Comment on above: GFR estimated refere nce range: According to KDOQI guidelines, <60 ml/min/1.73m2 is sufficient to diagnose a patient with chronic kidney disease. Pharmacy Creatinine Clearance (Chem 136.96 [facility] Platelet Estimate Normal Normal [facility] Platelet Morphology Comment Normal Normal [facility] Normal Normal [facility] 1.9 mg/dL 1.6-2.6 [facility] No Panel InformationOrdered By: Ravi Arguello on 08-20-2022 SARS Antigen (LFIA) [facility] Phencyclidine Screen Ql (U)O rdered By: Gilson Castro on 08-20-2022 Phencyclidine Ql (U) Negative Negative [facility] Platelet mean volume Auto (B ld) [Entitic vol]Ordered By: Gilson Castro on 08-20-2022 Platelet mean volume (Bld) [Entitic vol] 8.6 fL 6.3-10.7 [facility] Platelets Auto (Bld) [#/Vol] Ordered By: Gilson Castro on 08-20-2022 Platelets (Bld) [#/Vol] 145 10*3/uL 150-450 [facility] Comment on above: Delta: 314 on Protein Auto test strip (U) [Mass/Vol]Ordered By: Gilson Castro on 08-20-2022 Protein (U) [Mass/Vol] Negative Negative [facility] RBC Auto (Bld) [#/Vol]Ordere d By: Gilson Castro on 08-20-2022 RBC (Bld) [#/Vol] 4.31 10*6/uL 4.10-5.10 [facility] RBC morphologyOrdered By: Pierce aCstro on 08-20-2022 RBC morphology finding Nom (Bld) N/A [facility] Serum or plasma anion gap de terminationOrdered By: Gilson Castro on 08-20-2022 Anion gap [Moles/Vol] 15.2 mmol/L 6.0-15.0 [facility] Serum or plasma calcium tammy urement (mass/volume)Ordered By: Gilson Castro on 08-20-2022 Calcium [Mass/Vol] 8.6 mg/dL 8.2-10.2 [facility] Serum or plasma chloride judy surement (moles/volume)Ordered By: Gilson Castro on 08-20-2022 Chloride [Moles/Vol] 101 mmol/L 95-114 [facility] Serum or plasma glucose tammy urement (mass/volume)Ordered By: Gilson Castro on 08-20-2022 Glucose [Mass/Vol] 96 mg/dL 70-100 [facility] Comment on above: ADA recommended refe rence range Random Glucose Reference Range is dependent on time and content of last meal. Glucose of more than 200 mg/dL in a nonstressed, ambulatory subject supports the diagnosis of Diabetes Mellitus. Serum or plasma potassium me asurement (moles/volume)Ordered By: Gilson Castro on 08-20-2022 Potassium [Moles/Vol] 3.1 mmol/L 3.5-5.[address] [facility] Serum or plasma sodium measu rement (moles/volume)Ordered By: Gilson Castro on 08-20-2022 Sodium [Moles/Vol] 135 mmol/L 136-146 [facility] Serum or plasma total carbon dioxide measurement (moles/volume)Ordered By: Gilson Castro on 08-20-2022 CO2 [Moles/Vol] 21.9 mmol/L 22.0-30.0 [facility] Serum or plasma urea nitroge n measurement (mass/volume)Ordered By: Gilson Castro on 08-20-2022 Urea nitrogen [Mass/Vol] 11 mg/dL 08-20 [facility] Specific gravity Auto test s trip (U) [Rel density]Ordered By: Gilson Castro on 08-20-2022 Specific gravity (U) [Rel density] 1.008 1.001-1.03 0 [facility] Squamous epithelial cells de tection in urine sediment by light microscopyOrdered By: Gilson Castro on 08-20-2022 Epithelial cells.squamous LM Ql (Urine sed) 1-2 [HPF] 0-2 [facility] Urine bacteria detection by automated methodOrdered By: Gilson Castro on 08-20-2022 Bacteria Auto Ql (U) None seen None Seen [facility] Urine clarity by refractomet ry automatedOrdered By: Gilson Castro on 08-20-2022 Clarity Refractometry automated (U) Clear Clear [facility] Urine cocaine detectionOrder ed By: Gilson Castro on 08-20-2022 Cocaine Ql (U) Negative Negative [facility] Urine glucose measurement by automated test strip (mass/volume)Ordered By: Gilson Castro on 08-20-2022 Glucose Auto test strip (U) [Mass/Vol] Normal mg/dL Normal [facility] Urine hemoglobin detection b y automated test stripOrdered By: Gilson Castro on 08-20-2022 Hemoglobin Auto test strip Ql (U) Negative Negative [facility] Urine leukocyte esterase det ection by automated test stripOrdered By: Gilson Castro on 08-20-2022 Leukocyte esterase Auto test strip Ql (U) 1+ Negative [facility] Urobilinogen Auto test strip (U) [Mass/Vol]Ordered By: Gilson Castro on 08-20-2022 Urobilinogen (U) [Mass/Vol] Normal mg/dL Normal [facility] pH Auto test strip (U)Ordere d By: Gilson Castro on 08-20-2022 pH (U) 7.0 [pH] 5.0-9.0 [facility] Automated erythrocytes count in urine sediment (number/area)Ordered By: Gilson Castro on 08-19-2022 RBC Auto (Urine sed) [#/Area] 3-4 [HPF] 0-4 [facility] Automated erythrocytes count in urine sediment (number/area)Ordered By: Colten Fry on 08-19-2022 RBC Auto (Urine sed) [#/Area] None seen [HPF] 0-4 [facility] Automated leukocytes count i n urine sediment (number/area)Ordered By: Gilson Castro on 08-19-2022 WBC Auto (Urine sed) [#/Area] 20-49 [HPF] 0-4 [facility] Automated leukocytes count i n urine sediment (number/area)Ordered By: Colten Fry on 08-19-2022 WBC Auto (Urine sed) [#/Area] 5-9 [HPF] 0-4 [facility] Automated urine hyaline cast s count (number/volume)Ordered By: Gilson Castro on 08-19-2022 Hyaline casts Auto (U) [#/Vol] None seen [LPF] 0-1 [facility] Basophils Auto (Bld) [#/Vol] Ordered By: Gilson Castro on 08-19-2022 Basophils (Bld) [#/Vol] 0.0 10*3/uL 0.0-0.1 [facility] Basophils Auto (Bld) [#/Vol] Ordered By: Colten Fry on 08-19-2022 Basophils (Bld) [#/Vol] 0.0 10*3/uL 0.0-0.1 [facility] Basophils/100 WBC Auto (Bld) Ordered By: Gilson Castro on 08-19-2022 Basophils/100 WBC (Bld) 0.2 % . [facility] Basophils/100 WBC Auto (Bld) Ordered By: Colten Fry on 08-19-2022 Basophils/100 WBC (Bld) 0.4 % . [facility] Bilirubin Test strip Ql (U)O rdered By: Gilson Castro on 08-19-2022 Bilirubin Ql (U) Negative Negative [facility] Bilirubin Test strip Ql (U)O rdered By: Colten Fry on 08-19-2022 Bilirubin Ql (U) Negative Negative [facility] Blood hemoglobin measurement (mass/volume)Ordered By: Gilson Castro on 08-19-2022 Hemoglobin (Bld) [Mass/Vol] 13.2 g/dL 12.0-16.0 [facility] Blood hemoglobin measurement (mass/volume)Ordered By: Colten Fry on 08-19-2022 Hemoglobin (Bld) [Mass/Vol] 12.8 g/dL 12.0-16.0 [facility] Blood leukocytes automated c ount (number/volume)Ordered By: Gilson Castro on 08-19-2022 WBC (Bld) [#/Vol] 15.5 10*3/uL 4.5-13.5 [facility] Blood leukocytes automated c ount (number/volume)Ordered By: Colten Fry on 08-19-2022 WBC (Bld) [#/Vol] 13.5 10*3/uL 4.5-13.5 [facility] Body fluid albumin measureme nt (mass/volume)Ordered By: Gilson Castro on 08-19-2022 Albumin (Body fld) [Mass/Vol] 4.0 g/dL 3.2-5.5 [facility] Body fluid albumin measureme nt (mass/volume)Ordered By: Colten Fry on 08-19-2022 Albumin (Body fld) [Mass/Vol] 4.5 g/dL 3.2-5.5 [facility] COVID-19 SOFIAOrdered By: Pierce Castro on 08-19-2022 SARS-CoV+SARS-CoV-2 (COVID-19) Ag IA.rapid Ql (Resp) Negative Negative [facility] Comment on above: This is a duplicate [facility] SARS Antigen (JOSE A) result to be used for statistical tracking purpose only. Casts typing in urine sedime nt by light microscopyOrdered By: Gilson Castro on 08-19-2022 Casts LM Nom (Urine sed) None seen [LPF] None Seen [facility] Casts typing in urine sedime nt by light microscopyOrdered By: Colten Fry on 08-19-2022 Casts LM Nom (Urine sed) N/A [facility] Color Auto (U)Ordered By: Pierce Castro on 08-19-2022 Color (U) Yellow Yellow [facility] Color Auto (U)Ordered By: Vida Fry on 08-19-2022 Color (U) Yellow Yellow [facility] Creatinine and Glomerular fi ltration rate.predicted panel (S/P/Bld)Ordered By: Gilson Castro on 08-19-2022 Creatinine [Mass/Vol] 0.73 mg/dL 0.44-1.[address] [facility] Creatinine and Glomerular fi ltration rate.predicted panel (S/P/Bld)Ordered By: Colten Fry on 08-19-2022 Creatinine [Mass/Vol] 0.82 mg/dL 0.44-1.[address] [facility] Eosinophils Auto (Bld) [#/Vo l]Ordered By: Gilson Castro on 08-19-2022 Eosinophils (Bld) [#/Vol] 0.0 10*3/uL 0.0-0.7 [facility] Eosinophils Auto (Bld) [#/Vo l]Ordered By: Colten Fry on 08-19-2022 Eosinophils (Bld) [#/Vol] 0.0 10*3/uL 0.0-0.7 [facility] Eosinophils/100 WBC Auto (Bl d)Ordered By: Gilson Castro on 08-19-2022 Eosinophils/100 WBC (Bld) 0.2 % . [facility] Eosinophils/100 WBC Auto (Bl d)Ordered By: Colten Fry on 08-19-2022 Eosinophils/100 WBC (Bld) 0.0 % . [facility] Erythrocyte distribution wid th Auto (RBC) [Ratio]Ordered By: Gilson Castro on 08-19-2022 Erythrocyte distribution width (RBC) [Ratio] 14.4 % 11.9-15.3 [facility] Erythrocyte distribution wid th Auto (RBC) [Ratio]Ordered By: Colten Fry on 08-19-2022 Erythrocyte distribution width (RBC) [Ratio] 14.3 % 11.9-15.3 [facility] Estimated glomerular filtrat ion rate (GFR) non- AmericanOrdered By: Gilson Castro on 08-19-2022 GFR/1.73 sq M.predicted among non-blacks MDRD (S/P/Bld) [Vol rate/Area] > 60 mL/Min [facility] Estimated glomerular filtrat ion rate (GFR) non- AmericanOrdered By: Colten Fry on 08-19-2022 GFR/1.73 sq M.predicted among non-blacks MDRD (S/P/Bld) [Vol rate/Area] > 60 mL/Min [facility] Globulin Calc (S) [Mass/Vol] Ordered By: Gilson Castro on 08-19-2022 Globulin (S) [Mass/Vol] 2.7 g/dL [facility] Globulin Calc (S) [Mass/Vol] Ordered By: Colten Fry on 08-19-2022 Globulin (S) [Mass/Vol] 3.0 g/dL [facility] HCG ( test) IA.rapi d Ql (U)Ordered By: Gilson Castro on 08-19-2022 HCG ( test) Ql (U) Negative [facility] HCG ( test) IA.rapi d Ql (U)Ordered By: Colten Fry on 08-19-2022 HCG ( test) Ql (U) Negative [facility] Hematocrit Auto (Bld) [Volum e fraction]Ordered By: Gilson Castro on 08-19-2022 Hematocrit (Bld) [Volume fraction] 40.6 % 36.0-46.0 [facility] Hematocrit Auto (Bld) [Volum e fraction]Ordered By: Colten Fry on 08-19-2022 Hematocrit (Bld) [Volume fraction] 39.5 % 36.0-46.0 [facility] Ketones Auto test strip (U) [Mass/Vol]Ordered By: Gilson Castro on 08-19-2022 Ketones (U) [Mass/Vol] 4+ Negative [facility] Ketones Auto test strip (U) [Mass/Vol]Ordered By: Colten Fry on 08-19-2022 Ketones (U) [Mass/Vol] 3+ Negative [facility] Laboratory - Chemistry and C hemistry - challengeOrdered By: Gilson Castro on 08-19-2022 Lipase [Catalytic activity/Vol] 24.0 U/L 51 [facility] Magnesium [Mass/Vol] 2.0 mg/dL 1.6-2.6 [facility] Laboratory - Hematology and Cell countsOrdered By: Gilson Castro on 08-19-2022 Nucleated RBC/100 WBC (Bld) [Ratio] 0.1 % 0-0.5 [facility] Laboratory - Hematology and Cell countsOrdered By: Colten Fry on 08-19-2022 Nucleated RBC/100 WBC (Bld) [Ratio] 0.0 % 0-0.5 [facility] Laboratory - UrinalysisOrder ed By: Colten Fry on 08-19-2022 Hyaline casts LM Ql (Urine sed) None seen [LPF] 0-8 [facility] Lymphocytes Auto (Bld) [#/Vo l]Ordered By: Gilson Castro on 08-19-2022 Lymphocytes (Bld) [#/Vol] 2.3 10*3/uL 1.20-4.8 [facility] Lymphocytes Auto (Bld) [#/Vo l]Ordered By: Colten Fry on 08-19-2022 Lymphocytes (Bld) [#/Vol] 1.0 10*3/uL 1.20-4.8 [facility] Lymphocytes/100 WBC Auto (Bl d)Ordered By: Gilson Castro on 08-19-2022 Lymphocytes/100 WBC (Bld) 14.6 % . [facility] Lymphocytes/100 WBC Auto (Bl d)Ordered By: Colten Fry on 08-19-2022 Lymphocytes/100 WBC (Bld) 7.3 % . [facility] MCH Auto (RBC) [Entitic mass ]Ordered By: Gilson Castro on 08-19-2022 MCH (RBC) [Entitic mass] 27.9 pg 25.0-35.0 [facility] MCH Auto (RBC) [Entitic mass ]Ordered By: Coletn Fry on 08-19-2022 MCH (RBC) [Entitic mass] 27.7 pg 25.0-35.0 [facility] MCHC Auto (RBC) [Mass/Vol]Or dered By: Gilson Castro on 08-19-2022 MCHC (RBC) [Mass/Vol] 32.6 g/dL 31.0-37.[address] [facility] MCHC Auto (RBC) [Mass/Vol]Or dered By: Colten Fry on 08-19-2022 MCHC (RBC) [Mass/Vol] 32.3 g/dL 31.0-37.[address] [facility] MCV Auto (RBC) [Entitic vol] Ordered By: Gilson Castro on 08-19-2022 MCV (RBC) [Entitic vol] 85.6 fL 78-102 [facility] MCV Auto (RBC) [Entitic vol] Ordered By: Colten Fry on 08-19-2022 MCV (RBC) [Entitic vol] 85.7 fL 78-102 [facility] Monocytes Auto (Bld) [#/Vol] Ordered By: Gilson Castro on 08-19-2022 Monocytes (Bld) [#/Vol] 1.1 10*3/uL 0.1-1.00 [facility] Monocytes Auto (Bld) [#/Vol] Ordered By: Colten Fry on 08-19-2022 Monocytes (Bld) [#/Vol] 0.3 10*3/uL 0.1-1.00 [facility] Monocytes/100 WBC Auto (Bld) Ordered By: Gilson Castro on 08-19-2022 Monocytes/100 WBC (Bld) 7.3 % . [facility] Monocytes/100 WBC Auto (Bld) Ordered By: Colten Fry on 08-19-2022 Monocytes/100 WBC (Bld) 2.1 % . [facility] Neutrophils Auto (Bld) [#/Vo l]Ordered By: Gilson Castro on 08-19-2022 Neutrophils (Bld) [#/Vol] 12.1 10*3/uL 1.2-7.7 [facility] Neutrophils Auto (Bld) [#/Vo l]Ordered By: Colten Fry on 08-19-2022 Neutrophils (Bld) [#/Vol] 12.2 10*3/uL 1.2-7.7 [facility] Neutrophils/100 WBC Auto (Bl d)Ordered By: Gilson Castro on 08-19-2022 Neutrophils/100 WBC (Bld) 77.7 % . [facility] Neutrophils/100 WBC Auto (Bl d)Ordered By: Colten Fry on 08-19-2022 Neutrophils/100 WBC (Bld) 90.2 % . [facility] Nitrite Test strip Ql (U)Ord ered By: Gilson Castro on 08-19-2022 Nitrite Ql (U) Negative Negative [facility] Nitrite Test strip Ql (U)Ord ered By: Colten Fry on 08-19-2022 Nitrite Ql (U) Negative Negative [facility] No Panel InformationOrdered By: Gilson Castro on 08-19-2022 Estimated GFR () > 60 mL/Min [facility] Comment on above: GFR estimated refere nce range: According to KDOQI guidelines, <60 ml/min/1.73m2 is sufficient to diagnose a patient with chronic kidney disease. Pharmacy Creatinine Clearance (Chem 121.95 [facility] > 60 mL/Min [facility] 2.0 mg/dL 1.6-2.6 [facility] 24.0 U/L [facility] 121.95 [facility] 15.5 10*3/uL 4.5-13.5 [facility] 0.1 % 0-0.5 [facility] SARS Antigen (LFIA) [facility] No Panel InformationOrdered By: Colten Fry on 08-19-2022 None seen [LPF] 0-8 [facility] Estimated GFR () > 60 mL/Min [facility] Comment on above: GFR estimated refere nce range: According to KDOQI guidelines, <60 ml/min/1.73m2 is sufficient to diagnose a patient with chronic kidney disease. Pharmacy Creatinine Clearance (Chem 106.97 [facility] 13.5 10*3/uL 4.5-13.5 [facility] 0.0 % 0-0.5 [facility] > 60 mL/Min [facility] 106.97 [facility] Platelet mean volume Auto (B ld) [Entitic vol]Ordered By: Gilson Castro on 08-19-2022 Platelet mean volume (Bld) [Entitic vol] 8.8 fL 6.3-10.7 [facility] Platelet mean volume Auto (B ld) [Entitic vol]Ordered By: Colten Fry on 08-19-2022 Platelet mean volume (Bld) [Entitic vol] 8.7 fL 6.3-10.7 [facility] Platelets Auto (Bld) [#/Vol] Ordered By: Gilson Castro on 08-19-2022 Platelets (Bld) [#/Vol] 314 10*3/uL 150-450 [facility] Platelets Auto (Bld) [#/Vol] Ordered By: Colten Fry on 08-19-2022 Platelets (Bld) [#/Vol] 258 10*3/uL 150-450 [facility] Protein Auto test strip (U) [Mass/Vol]Ordered By: Gilson Castro on 08-19-2022 Protein (U) [Mass/Vol] 30 mg/dL Negative [facility] Protein Auto test strip (U) [Mass/Vol]Ordered By: Colten Fry on 08-19-2022 Protein (U) [Mass/Vol] Trace mg/dL Negative [facility] Protein [Mass/volume] in Ser um or PlasmaOrdered By: Gilson Castro on 08-19-2022 Protein [Mass/Vol] 6.7 g/dL 6.1-7.9 [facility] Protein [Mass/volume] in Ser um or PlasmaOrdered By: Colten Fry on 08-19-2022 Protein [Mass/Vol] 7.5 g/dL 6.1-7.9 [facility] RBC Auto (Bld) [#/Vol]Ordere d By: Gilson Castro on 08-19-2022 RBC (Bld) [#/Vol] 4.74 10*6/uL 4.10-5.10 [facility] RBC Auto (Bld) [#/Vol]Ordere d By: Colten Fry on 08-19-2022 RBC (Bld) [#/Vol] 4.60 10*6/uL 4.10-5.10 [facility] Serum or plasma alanine florez otransferase measurement without P-5'-P (enzymatic activiOrdered By: Gilson Castro on 08-19-2022 ALT No additional P-5'-P [Catalytic activity/Vol] 17 U/L 10-60 [facility] Serum or plasma alanine florez otransferase measurement without P-5'-P (enzymatic activiOrdered By: Colten Fry on 08-19-2022 ALT No additional P-5'-P [Catalytic activity/Vol] 16 U/L 10-60 [facility] Serum or plasma albumin/glob ulin mass ratioOrdered By: Gilson Castro on 08-19-2022 Albumin/Globulin [Mass ratio] 1.5 {ratio} [facility] Serum or plasma albumin/glob ulin mass ratioOrdered By: Colten Fry on 08-19-2022 Albumin/Globulin [Mass ratio] 1.5 {ratio} [facility] Serum or plasma alkaline justin sphatase measurement (enzymatic activity/volume)Ordered By: Gilson Castro on 08-19-2022 ALP [Catalytic activity/Vol] 51 U/L [facility] Serum or plasma alkaline justin sphatase measurement (enzymatic activity/volume)Ordered By: Colten Fry on 08-19-2022 ALP [Catalytic activity/Vol] 59 U/L [facility] Serum or plasma anion gap de terminationOrdered By: Gilson Castro on 08-19-2022 Anion gap [Moles/Vol] 13.8 mmol/L 6.0-15.0 [facility] Serum or plasma anion gap de terminationOrdered By: Colten Fry on 08-19-2022 Anion gap [Moles/Vol] 19.5 mmol/L 6.0-15.0 [facility] Serum or plasma aspartate am inotransferase measurement (enzymatic activity/volume)Ordered By: Gilson Castro on 08-19-2022 AST [Catalytic activity/Vol] 17 U/L [facility] Serum or plasma aspartate am inotransferase measurement (enzymatic activity/volume)Ordered By: Colten Fry on 08-19-2022 AST [Catalytic activity/Vol] 20 U/L [facility] Serum or plasma calcium tammy urement (mass/volume)Ordered By: Gilson Castro on 08-19-2022 Calcium [Mass/Vol] 9.1 mg/dL 8.2-10.2 [facility] Serum or plasma calcium tammy urement (mass/volume)Ordered By: Colten Fry on 08-19-2022 Calcium [Mass/Vol] 9.8 mg/dL 8.2-10.2 [facility] Serum or plasma chloride judy [...] filtration rate.predicted panel (S/P/Bld) 0.73 mg/dL 0.44-1.03 [facility] Serum or plasma creatinine m easurement with calculation of estimated glomerular filtrOrdered By: Colten Fyr on 08-19-2022 Creatinine and Glomerular filtration rate.predicted panel (S/P/Bld) 0.82 mg/dL 0.44-1.03 [facility] Serum or plasma glucose tammy urement (mass/volume)Ordered By: Gilson Castro on 08-19-2022 Glucose [Mass/Vol] 108 mg/dL 70-100 [facility] Comment on above: ADA recommended refe [...] on 08-19-2022 Glucose [Mass/Vol] 131 mg/dL 70-100 [facility] Comment on above: ADA recommended refe [...] on 08-19-2022 Potassium [Moles/Vol] 3.1 mmol/L 3.5-5.[address] [facility] Serum or plasma potassium me asurement (moles/volume)Ordered By: Colten Fry on 08-19-2022 Potassium [Moles/Vol] 3.9 mmol/L 3.5-5.[address] [facility] Serum or plasma sodium measu rement (moles/volume)Ordered By: Gilson Castro on 08-19-2022 Sodium [Moles/Vol] 138 mmol/L 136-146 [facility] Serum or plasma sodium measu rement (moles/volume)Ordered By: Colten Fry on 08-19-2022 Sodium [Moles/Vol] 142 mmol/L 136-146 [facility] Serum or plasma total biliru [...] on 08-19-2022 CO2 [Moles/Vol] 23.3 mmol/L 22.0-30.0 [facility] Serum or plasma total carbon dioxide measurement (moles/volume)Ordered By: Colten Fry on 08-19-2022 CO2 [Moles/Vol] 19.4 mmol/L 22.0-30.0 [facility] Serum or plasma urea nitroge n measurement (mass/volume)Ordered By: Gilson Castro on 08-19-2022 Urea nitrogen [Mass/Vol] 15 mg/dL 08-20 [facility] Serum or plasma urea nitroge n measurement (mass/volume)Ordered By: Colten Fry on 08-19-2022 Urea nitrogen [Mass/Vol] 14 mg/dL 08-20 [facility] Specific gravity Auto test s trip (U) [Rel density]Ordered By: Gilson Castro on 08-19-2022 Specific gravity (U) [Rel density] 1.026 1.001-1.03 0 [facility] Specific gravity Auto test s trip (U) [Rel density]Ordered By: Colten Fry on 08-19-2022 Specific gravity (U) [Rel density] 1.023 1.001-1.03 0 [facility] Squamous epithelial cells de tection in urine sediment by light microscopyOrdered By: Gilson Castro on 08-19-2022 Epithelial cells.squamous LM Ql (Urine sed) 20-30 [HPF] 0-2 [facility] Squamous epithelial cells de tection in urine sediment by light microscopyOrdered By: Colten Fry on 08-19-2022 Epithelial cells.squamous LM Ql (Urine sed) 20-30 [HPF] 0-2 [facility] Urine bacteria detection by automated [...] 08-19-2022 Clarity Refractometry automated (U) Turbid Clear [facility] Urine clarity by refractomet ry automatedOrdered By: Colten Fry on 08-19-2022 Clarity Refractometry automated (U) Cloudy Clear [facility] Urine glucose measurement by automated test strip (mass/volume)Ordered By: Gilson Castro on 08-19-2022 Glucose Auto test strip (U) [Mass/Vol] Normal mg/dL Normal [facility] Urine glucose measurement by automated test strip (mass/volume)Ordered By: Colten Fry on 08-19-2022 Glucose Auto test strip (U) [Mass/Vol] Normal mg/dL Normal [facility] Urine hemoglobin detection b y automated test stripOrdered By: Gilson Castro on 08-19-2022 Hemoglobin Auto test strip Ql (U) Negative Negative [facility] Urine hemoglobin detection b y automated test stripOrdered By: Colten Fry on 08-19-2022 Hemoglobin Auto test strip Ql (U) Negative Negative [facility] Urine leukocyte esterase det ection by automated test stripOrdered By: Gilson Castro on 08-19-2022 Leukocyte esterase Auto test strip Ql (U) 2+ Negative [facility] Urine leukocyte esterase det ection by automated test stripOrdered By: Colten Fry on 08-19-2022 Leukocyte esterase Auto test strip Ql (U) 1+ Negative [facility] Urobilinogen Auto test strip (U) [Mass/Vol]Ordered By: Gilson Castro on 08-19-2022 Urobilinogen (U) [Mass/Vol] Normal mg/dL Normal [facility] Urobilinogen Auto test strip (U) [Mass/Vol]Ordered By: Colten Fry on 08-19-2022 Urobilinogen (U) [Mass/Vol] Normal mg/dL Normal [facility] pH Auto test strip (U)Ordere d By: Gilson Castro on 08-19-2022 pH (U) 8.0 [pH] 5.0-9.0 [facility] pH Auto test strip (U)Ordere d By: Colten Fry on 08-19-2022 pH (U) 6.0 [pH] 5.0-9.0 [facility] COVID-19 SOFIAOrdered By: Lul Rivera on 08-18-2022 SARS-CoV+SARS-CoV-2 (COVID-19) Ag IA.rapid Ql (Resp) Negative Negative [facility] Comment on above: This is a duplicate [facility] SARS Antigen (JOSE A) result to be used for statistical tracking purpose only. No Panel InformationOrdered By: Joss Rivera on 08-18-2022 SARS Antigen (LFIA) [facility] Basophils Auto (Bld) [#/Vol] Ordered By: Modesta Chand on 06-25-2022 Basophils (Bld) [#/Vol] 0.1 10*3/uL 0.0-0.1 [facility] Basophils/100 WBC Auto (Bld) Ordered By: Modesta Chand on 06-25-2022 Basophils/100 WBC (Bld) 1.2 % . [facility] Blood hemoglobin measurement (mass/volume)Ordered By: Modesta Chand on 06-25-2022 Hemoglobin (Bld) [Mass/Vol] 13.8 g/dL 12.0-16.0 [facility] Blood leukocytes automated c ount (number/volume)Ordered By: Modesta Chand on 06-25-2022 WBC (Bld) [#/Vol] 7.9 10*3/uL 4.5-13.5 [facility] Body fluid albumin measureme nt (mass/volume)Ordered By: Modesta Chand on 06-25-2022 Albumin (Body fld) [Mass/Vol] 4.5 g/dL 3.2-5.5 [facility] CT biopsyOrdered By: Yasmine Chand on 06-25-2022 Transferrin [Mass/Vol] 328 mg/dL 180-380 [facility] Creatinine and Glomerular fi ltration rate.predicted panel (S/P/Bld)Ordered By: Modesta Chand on 06-25-2022 Creatinine [Mass/Vol] 0.67 mg/dL 0.44-1.[address] [facility] Eosinophils Auto (Bld) [#/Vo l]Ordered By: Modesta Chand on 06-25-2022 Eosinophils (Bld) [#/Vol] 0.6 10*3/uL 0.0-0.7 [facility] Eosinophils/100 WBC Auto (Bl d)Ordered By: Modesta Chand on 06-25-2022 Eosinophils/100 WBC (Bld) 7.2 % . [facility] Erythrocyte distribution wid th Auto (RBC) [Ratio]Ordered By: Modesta Chand on 06-25-2022 Erythrocyte distribution width (RBC) [Ratio] 13.6 % 11.9-15.3 [facility] Estimated glomerular filtrat ion rate (GFR) non- AmericanOrdered By: Modesta Chand on 06-25-2022 GFR/1.73 sq M.predicted among non-blacks MDRD (S/P/Bld) [Vol rate/Area] > 60 mL/Min [facility] Ferritin [Mass/volume] in Se rum or PlasmaOrdered By: Modesta Chand on 06-25-2022 Ferritin [Mass/Vol] 28.5 ng/mL 11-306.8 [facility] Globulin Calc (S) [Mass/Vol] Ordered By: Modesta Chand on 06-25-2022 Globulin (S) [Mass/Vol] 2.5 g/dL [facility] Hematocrit Auto (Bld) [Volum e fraction]Ordered By: Modesta Chand on 06-25-2022 Hematocrit (Bld) [Volume fraction] 42.3 % 36.0-46.0 [facility] Iron [Mass/volume] in Serum or PlasmaOrdered By: Modesta Chand on 06-25-2022 Iron [Mass/Vol] 52 ug/dL 40-150 [facility] Iron binding capacity [Mass/ volume] in Serum or PlasmaOrdered By: Modesta Chand on 06-25-2022 Iron binding capacity [Mass/Vol] 459 ug/dL 255-450 [facility] Iron saturation [Mass Fracti on] in Serum or PlasmaOrdered By: Modesta Chand on 06-25-2022 Iron saturation [Mass fraction] 11.0 % 20-50 [facility] Laboratory - Hematology and Cell countsOrdered By: Modesta Chand on 06-25-2022 Nucleated RBC/100 WBC (Bld) [Ratio] 0.0 % 0-0.5 [facility] Lymphocytes Auto (Bld) [#/Vo l]Ordered By: Modesta Chand on 06-25-2022 Lymphocytes (Bld) [#/Vol] 2.1 10*3/uL 1.20-4.8 [facility] Lymphocytes/100 WBC Auto (Bl d)Ordered By: Modesta Chand on 06-25-2022 Lymphocytes/100 WBC (Bld) 26.9 % . [facility] MCH Auto (RBC) [Entitic mass ]Ordered By: Modesta Chand on 06-25-2022 MCH (RBC) [Entitic mass] 28.1 pg 25.0-35.0 [facility] MCHC Auto (RBC) [Mass/Vol]Or dered By: Modesta Chand on 06-25-2022 MCHC (RBC) [Mass/Vol] 32.7 g/dL 31.0-37.[address] [facility] MCV Auto (RBC) [Entitic vol] Ordered By: Modesta Chand on 06-25-2022 MCV (RBC) [Entitic vol] 85.8 fL 78-102 [facility] Monocytes Auto (Bld) [#/Vol] Ordered By: Modesta Chand on 06-25-2022 Monocytes (Bld) [#/Vol] 0.6 10*3/uL 0.1-1.00 [facility] Monocytes/100 WBC Auto (Bld) Ordered By: Modesta Chand on 06-25-2022 Monocytes/100 WBC (Bld) 7.2 % . [facility] Neutrophils Auto (Bld) [#/Vo l]Ordered By: Modesta Chand on 06-25-2022 Neutrophils (Bld) [#/Vol] 4.5 10*3/uL 1.2-7.7 [facility] Neutrophils/100 WBC Auto (Bl d)Ordered By: Modesta Chand on 06-25-2022 Neutrophils/100 WBC (Bld) 57.5 % . [facility] No Panel InformationOrdered By: Modesta Chand on 06-25-2022 25-Hydroxy Vitamin D Total 35.9 ng/mL 30-100 [facility] Comment on above: VITAMIN D STATUS 25( [place])VITAMIN D RANGE (ng/mL) Deficient <20 Insufficient 20 to <30 Sufficient 30 to 100 Reference: Danica MF,Chayo NC, Sony GUERRERO, et al. Evaluation,treatment, and prevention of vitamin D deficiency; an Endocrine Society clinical practice guideline. JCEM. 2010; 96(7):1911-30. Absolute Reticulocyte Count 0.066 10*6/uL 0.024-0.08 4 [facility] Estimated GFR () > 60 mL/Min [facility] Comment on above: GFR estimated refere nce range: According to KDOQI guidelines, <60 ml/min/1.73m2 is sufficient to diagnose a patient with chronic kidney disease. Percent Reticulocyte Count 1.3 % 0.5-1.5 [facility] Pharmacy Creatinine Clearance (Chem N/A [facility] Platelet mean volume Auto (B ld) [Entitic vol]Ordered By: Modesta Chand on 06-25-2022 Platelet mean volume (Bld) [Entitic vol] 9.0 fL 6.3-10.7 [facility] Platelets Auto (Bld) [#/Vol] Ordered By: Modesta Chand on 06-25-2022 Platelets (Bld) [#/Vol] 263 10*3/uL 150-450 [facility] Protein [Mass/volume] in Ser um or PlasmaOrdered By: Modesta Chand on 06-25-2022 Protein [Mass/Vol] 7.0 g/dL 6.1-7.9 [facility] RBC Auto (Bld) [#/Vol]Ordere d By: Modesta Chand on 06-25-2022 RBC (Bld) [#/Vol] 4.94 10*6/uL 4.10-5.10 [facility] Serum or plasma alanine florez otransferase measurement without P-5'-P (enzymatic activiOrdered By: Modesta Chand on 06-25-2022 ALT No additional P-5'-P [Catalytic activity/Vol] 18 U/L 10-60 [facility] Serum or plasma albumin/glob ulin mass ratioOrdered By: Modesta Chand on 06-25-2022 Albumin/Globulin [Mass ratio] 1.8 {ratio} [facility] Serum or plasma alkaline justin sphatase measurement (enzymatic activity/volume)Ordered By: Modesta Chand on 06-25-2022 ALP [Catalytic activity/Vol] 65 U/L 32-92 [facility] Serum or plasma aspartate am inotransferase measurement (enzymatic activity/volume)Ordered By: Modesta Chand on 06-25-2022 AST [Catalytic activity/Vol] 18 U/L 10-42 [facility] Serum or plasma calcium tammy urement (mass/volume)Ordered By: Modesta Chand on 06-25-2022 Calcium [Mass/Vol] 10.2 mg/dL 8.2-10.2 [facility] Serum or plasma chloride judy surement (moles/volume)Ordered By: Modesta Chand on 06-25-2022 Chloride [Moles/Vol] 102 mmol/L 95-114 [facility] Serum or plasma glucose tammy urement (mass/volume)Ordered By: Modesta Chand on 06-25-2022 Glucose [Mass/Vol] 87 mg/dL 70-100 [facility] Comment on above: ADA recommended refe rence range Random Glucose Reference Range is dependent on time and content of last meal. Glucose of more than 200 mg/dL in a nonstressed, ambulatory subject supports the diagnosis of Diabetes Mellitus. Serum or plasma potassium me asurement (moles/volume)Ordered By: Modesta Chand on 06-25-2022 Potassium [Moles/Vol] 4.4 mmol/L 3.5-5.[address] [facility] Serum or plasma sodium measu rement (moles/volume)Ordered By: Modesta Chand on 06-25-2022 Sodium [Moles/Vol] 137 mmol/L 136-146 [facility] Serum or plasma total biliru bin measurement (mass/volume)Ordered By: Modesta Chand on 06-25-2022 Bilirubin [Mass/Vol] 0.4 mg/dL 0.3-1.2 [facility] Serum or plasma total carbon dioxide measurement (moles/volume)Ordered By: Modesta Chand on 06-25-2022 CO2 [Moles/Vol] 23.8 mmol/L 22.0-30.0 [facility] Serum or plasma urea nitroge n measurement (mass/volume)Ordered By: Modesta Chand on 06-25-2022 Urea nitrogen [Mass/Vol] 14 mg/dL 9-23 [facility] TSH DL <= 0.005 mIU/L QnOrde red By: Modesta Chand on 06-25-2022 TSH Qn 1.05 m[IU]/L 0.45-5.33 [facility] Thyroxine (T4) free [Mass/vo lume] in Serum or PlasmaOrdered By: Modesta Chand on 06-25-2022 Free T4 [Mass/Vol] 0.74 ng/dL 0.61-1.12 [facility] HCG ( test) IA.rapi d Ql (U)Ordered By: Brennen Britt on 06-09-2022 HCG ( test) Ql (U) Negative [facility] COVID-19 Positive/NegativeOr dered By: Brennen Britt on 06-07-2022 SARS-CoV-2 (COVID-19) N gene JANAK+probe Ql (Resp) Negative Negative [facility] Comment on above: Testing for SARS-CoV -2 by RT-PCR This test was developed and its performance characteristics determined by [employer] ([employer]) and validated at the [facility]. This test has not been [...] on 05-26-2022 Albumin [Mass/Vol] 3.9 g/dL 3.2-5.5 [facility] Basophils Auto (Bld) [#/Vol] Ordered By: Modesta Chand on 05-26-2022 Basophils (Bld) [#/Vol] 0.1 10*3/uL 0.0-0.1 [facility] Basophils/100 WBC Auto (Bld) Ordered By: Modesta Chand on 05-26-2022 Basophils/100 WBC (Bld) 1.1 % . [facility] Blood hemoglobin measurement (mass/volume)Ordered By: Modesta Chand on 05-26-2022 Hemoglobin (Bld) [Mass/Vol] 13.6 g/dL 12.0-16.0 [facility] Blood leukocytes automated c ount (number/volume)Ordered By: Modesta Chand on 05-26-2022 WBC (Bld) [#/Vol] 10.6 10*3/uL 4.5-13.5 [facility] C reactive protein [Mass/vol ume] in Serum or PlasmaOrdered By: Modesta Chand on 05-26-2022 CRP [Mass/Vol] 0.6 mg/dL 0.0-1.0 [facility] CT biopsyOrdered By: Yasmine Chand on 05-26-2022 Transferrin [Mass/Vol] 292 mg/dL 180-380 [facility] Creatinine and Glomerular fi ltration rate.predicted panel (S/P/Bld)Ordered By: Modesta Chand on 05-26-2022 Creatinine [Mass/Vol] 0.63 mg/dL 0.44-1.[address] [facility] Eosinophils Auto (Bld) [#/Vo l]Ordered By: Modesta Chand on 05-26-2022 Eosinophils (Bld) [#/Vol] 0.4 10*3/uL 0.0-0.7 [facility] Eosinophils/100 WBC Auto (Bl d)Ordered By: Modesta Chand on 05-26-2022 Eosinophils/100 WBC (Bld) 3.6 % . [facility] Erythrocyte distribution wid th Auto (RBC) [Ratio]Ordered By: Modesta Chand on 05-26-2022 Erythrocyte distribution width (RBC) [Ratio] 13.7 % 11.9-15.3 [facility] Erythrocyte sedimentation ra te by Photometric methodOrdered By: Modesta Chand on 05-26-2022 ESR Photometric method (Bld) [Velocity] 5 mm/hr 0-19 [facility] Estimated glomerular filtrat ion rate (GFR) non- AmericanOrdered By: Modesta Chand on 05-26-2022 GFR/1.73 sq M.predicted among non-blacks MDRD (S/P/Bld) [Vol rate/Area] > 60 mL/Min [facility] Ferritin [Mass/volume] in Se rum or PlasmaOrdered By: Modesta Chand on 05-26-2022 Ferritin [Mass/Vol] 14.2 ng/mL 11-306.8 [facility] Folate [Mass/volume] in Seru m or PlasmaOrdered By: Modesta Chand on 05-26-2022 Folate [Mass/Vol] 13.0 ng/mL >5.9 [facility] Comment on above: Folate reference ran ge: >5.9 ng/ml The WHO technical consultation on folate and vitamin b12 deficiencies has determined that folate concentrations less than 4 ng/ml are considered deficient. Globulin Calc (S) [Mass/Vol] Ordered By: Modesta Chand on 05-26-2022 Globulin (S) [Mass/Vol] 2.3 g/dL [facility] Glucose mean value [Mass/vol ume] in Blood Estimated from glycated hemoglobinOrdered By: Modesta Chand on 05-26-2022 Average glucose Estimated from glycated hemoglobin (Bld) [Mass/Vol] 111 mg/dL [facility] Hematocrit Auto (Bld) [Volum e fraction]Ordered By: Modesta Chand on 05-26-2022 Hematocrit (Bld) [Volume fraction] 41.4 % 36.0-46.0 [facility] Hemoglobin A1c percentageOrd ered By: Modesta Chand on 05-26-2022 HbA1c (Bld) [Mass fraction] 5.5 % 4.3-5.6 [facility] Comment on above: Increased risk for d iabetes: 5.7 - 6.4 diabetes: >6.4 glycemic control for adults with diabetes: <7.0 Iron [Mass/volume] in Serum or PlasmaOrdered By: Modesta Chand on 05-26-2022 Iron [Mass/Vol] 63 ug/dL 40-150 [facility] Iron binding capacity [Mass/ volume] in Serum or PlasmaOrdered By: Modesta Chand on 05-26-2022 Iron binding capacity [Mass/Vol] 409 ug/dL 255-450 [facility] Iron saturation [Mass Fracti on] in Serum or PlasmaOrdered By: Modesta Chand on 05-26-2022 Iron saturation [Mass fraction] 15.0 % 20-50 [facility] Laboratory - Chemistry and C hemistry - challengeOrdered By: Modesta Chand on 05-26-2022 Cobalamin (Vitamin B12) [Mass/Vol] 329 pg/mL 180-914 [facility] Laboratory - Hematology and Cell countsOrdered By: Modesta Chand on 05-26-2022 Nucleated RBC/100 WBC (Bld) [Ratio] 0.0 % 0-0.5 [facility] Lymphocytes Auto (Bld) [#/Vo l]Ordered By: Modesta Chand on 05-26-2022 Lymphocytes (Bld) [#/Vol] 2.3 10*3/uL 1.20-4.8 [facility] Lymphocytes/100 WBC Auto (Bl d)Ordered By: Modesta Chand on 05-26-2022 Lymphocytes/100 WBC (Bld) 21.6 % . [facility] MCH Auto (RBC) [Entitic mass ]Ordered By: Modesta Chand on 05-26-2022 MCH (RBC) [Entitic mass] 28.6 pg 25.0-35.0 [facility] MCHC Auto (RBC) [Mass/Vol]Or dered By: Modesta Chand on 05-26-2022 MCHC (RBC) [Mass/Vol] 33.0 g/dL 31.0-37.[address] [facility] MCV Auto (RBC) [Entitic vol] Ordered By: Modesta Chand on 05-26-2022 MCV (RBC) [Entitic vol] 86.6 fL 78-102 [facility] Monocytes Auto (Bld) [#/Vol] Ordered By: Modesta Chand on 05-26-2022 Monocytes (Bld) [#/Vol] 0.6 10*3/uL 0.1-1.00 [facility] Monocytes/100 WBC Auto (Bld) Ordered By: Modesta Chand on 05-26-2022 Monocytes/100 WBC (Bld) 5.9 % . [facility] Neutrophils Auto (Bld) [#/Vo l]Ordered By: Modesta Chand on 05-26-2022 Neutrophils (Bld) [#/Vol] 7.2 10*3/uL 1.2-7.7 [facility] Neutrophils/100 WBC Auto (Bl d)Ordered By: Modesta Chand on 05-26-2022 Neutrophils/100 WBC (Bld) 67.8 % . [facility] No Panel InformationOrdered By: Modesta Chand on 05-26-2022 25-Hydroxy Vitamin D Total 26.9 ng/mL 30-100 [facility] Comment on above: VITAMIN D STATUS 25( [place])VITAMIN D RANGE (ng/mL) Deficient <20 Insufficient 20 to <30 Sufficient 30 to 100 Reference: Danica MF,Chayo NC, Sony GUERRERO, et al. Evaluation,treatment, and prevention of vitamin D deficiency; an Endocrine Society clinical practice guideline. JCEM. 2010; 96(7):1911-30. Estimated GFR () > 60 mL/Min [facility] Comment on above: GFR estimated refere nce range: According to KDOQI guidelines, <60 ml/min/1.73m2 is sufficient to diagnose a patient with chronic kidney disease. Pharmacy Creatinine Clearance (Chem N/A [facility] Platelet mean volume Auto (B ld) [Entitic vol]Ordered By: Modesta Chand on 05-26-2022 Platelet mean volume (Bld) [Entitic vol] 8.9 fL 6.3-10.7 [facility] Platelets Auto (Bld) [#/Vol] Ordered By: Modesta Chand on 05-26-2022 Platelets (Bld) [#/Vol] 286 10*3/uL 150-450 [facility] Protein [Mass/volume] in Ser um or PlasmaOrdered By: Modesta Chand on 05-26-2022 Protein [Mass/Vol] 6.2 g/dL 6.1-7.9 [facility] RBC Auto (Bld) [#/Vol]Ordere d By: Modesta Chand on 05-26-2022 RBC (Bld) [#/Vol] 4.78 10*6/uL 4.10-5.10 [facility] Serum nuclear antibody titer Ordered By: Modesta Chand on 05-26-2022 Nuclear Ab (S) [Titer] Negative . [facility] Comment on above: Negative <1:80 Borderline 1:80 Positive >1:80 ICAP nomenclature: AC-[id number] For more information about Hep-2 cell patterns use ANApatterns.org, the official website for the International Consensus on Antinuclear Antibody (EDMOND) Patterns (ICAP). Performed at: - [facility] [id number] Human Resource Adviser: James Nelson PhD, Phone: [phone] Serum or plasma alanine florez otransferase measurement without P-5'-P (enzymatic activiOrdered By: Modesta Chand on 05-26-2022 ALT No additional P-5'-P [Catalytic activity/Vol] 50 U/L 10-60 [facility] Serum or plasma albumin/glob ulin mass ratioOrdered By: Modesta Chand on 05-26-2022 Albumin/Globulin [Mass ratio] 1.7 {ratio} [facility] Serum or plasma alkaline justin sphatase measurement (enzymatic activity/volume)Ordered By: Modesta Chand on 05-26-2022 ALP [Catalytic activity/Vol] 58 U/L 32-92 [facility] Serum or plasma aspartate am inotransferase measurement (enzymatic activity/volume)Ordered By: Modesta Chand on 05-26-2022 AST [Catalytic activity/Vol] 25 U/L 10-42 [facility] Serum or plasma calcium tammy urement (mass/volume)Ordered By: Modesta Chand on 05-26-2022 Calcium [Mass/Vol] 9.3 mg/dL 8.2-10.2 [facility] Serum or plasma chloride judy surement (moles/volume)Ordered By: Modesta Chand on 05-26-2022 Chloride [Moles/Vol] 103 mmol/L 95-114 [facility] Serum or plasma glucose tammy urement (mass/volume)Ordered By: Modesta Chand on 05-26-2022 Glucose [Mass/Vol] 111 mg/dL 70-100 [facility] Comment on above: ADA recommended refe rence range Random Glucose Reference Range is dependent on time and content of last meal. Glucose of more than 200 mg/dL in a nonstressed, ambulatory subject supports the diagnosis of Diabetes Mellitus. Serum or plasma potassium me asurement (moles/volume)Ordered By: Modesta Chand on 05-26-2022 Potassium [Moles/Vol] 4.3 mmol/L 3.5-5.[address] [facility] Serum or plasma sodium measu rement (moles/volume)Ordered By: Modesta Chand on 05-26-2022 Sodium [Moles/Vol] 137 mmol/L 136-146 [facility] Serum or plasma total biliru bin measurement (mass/volume)Ordered By: Modesta Chand on 05-26-2022 Bilirubin [Mass/Vol] 0.5 mg/dL 0.3-1.2 [facility] Serum or plasma total carbon dioxide measurement (moles/volume)Ordered By: Modesta Chand on 05-26-2022 CO2 [Moles/Vol] 24.9 mmol/L 22.0-30.0 [facility] Serum or plasma urea nitroge n measurement (mass/volume)Ordered By: Modesta Chand on 05-26-2022 Urea nitrogen [Mass/Vol] 9 mg/dL 08-20 [facility] Urine culture routineOrdered By: Gilson Castro on 05-18-2022 Bacteria identified Cx Nom (U) 2 Days [facility] Amphetamine Screen Ql (U)Ord ered By: Gilson Castro on 05-16-2022 Amphetamines Ql (U) Negative Negative [facility] Automated erythrocytes count in urine sediment (number/area)Ordered By: Gilson Castro on 05-16-2022 RBC Auto (Urine sed) [#/Area] 3-4 [HPF] 0-4 [facility] Automated leukocytes count i n urine sediment (number/area)Ordered By: Gilson Castro on 05-16-2022 WBC Auto (Urine sed) [#/Area] 5-9 [HPF] 0-4 [facility] Automated urine hyaline cast s count (number/volume)Ordered By: Gilson Castro on 05-16-2022 Hyaline casts Auto (U) [#/Vol] None seen [LPF] 0-1 [facility] Barbiturates [Presence] in U rineOrdered By: Gilson Castro on 05-16-2022 Barbiturates Ql (U) Positive Negative [facility] Basophils Auto (Bld) [#/Vol] Ordered By: Gilson Castro on 05-16-2022 Basophils (Bld) [#/Vol] 0.0 10*3/uL 0.0-0.1 [facility] Basophils/100 WBC Auto (Bld) Ordered By: Gilson Castro on 05-16-2022 Basophils/100 WBC (Bld) 0.4 % . [facility] Benzodiazepines [Presence] i n UrineOrdered By: Gilson Castro on 05-16-2022 Benzodiazepines Ql (U) Negative Negative [facility] Bilirubin Test strip Ql (U)O rdered By: Gilson Castro on 05-16-2022 Bilirubin Ql (U) Negative Negative [facility] Blood hemoglobin measurement (mass/volume)Ordered By: Gilson Castro on 05-16-2022 Hemoglobin (Bld) [Mass/Vol] 13.4 g/dL 12.0-16.0 [facility] Blood leukocytes automated c ount (number/volume)Ordered By: Gilson Castro on 05-16-2022 WBC (Bld) [#/Vol] 10.0 10*3/uL 4.5-13.5 [facility] Body fluid albumin measureme nt (mass/volume)Ordered By: Gilson Castro on 05-16-2022 Albumin (Body fld) [Mass/Vol] 4.3 g/dL 3.2-5.5 [facility] Cannabinoids [Presence] in U rine by Screen methodOrdered By: Gilson Castro on 05-16-2022 Cannabinoids Screen Ql (U) Positive Negative [facility] Comment on above: These are [...] (Urine sed) None seen [LPF] None Seen [facility] Color Auto (U)Ordered By: Pierce Castro on 05-16-2022 Color (U) Yellow Yellow [facility] Creatinine and Glomerular fi ltration rate.predicted panel (S/P/Bld)Ordered By: Gilson Castro on 05-16-2022 Creatinine [Mass/Vol] 0.80 mg/dL 0.44-1.[address] [facility] Eosinophils Auto (Bld) [#/Vo l]Ordered By: Gilson Castro on 05-16-2022 Eosinophils (Bld) [#/Vol] 0.1 10*3/uL 0.0-0.7 [facility] Eosinophils/100 WBC Auto (Bl d)Ordered By: Gilson Castro on 05-16-2022 Eosinophils/100 WBC (Bld) 0.7 % . [facility] Erythrocyte distribution wid th Auto (RBC) [Ratio]Ordered By: Gilson Castro on 05-16-2022 Erythrocyte distribution width (RBC) [Ratio] 13.4 % 11.9-15.3 [facility] Estimated glomerular filtrat ion rate (GFR) non- AmericanOrdered By: Gilson Castro on 05-16-2022 GFR/1.73 sq M.predicted among non-blacks MDRD (S/P/Bld) [Vol rate/Area] > 60 mL/Min [facility] Globulin Calc (S) [Mass/Vol] Ordered By: Gilson Castro on 05-16-2022 Globulin (S) [Mass/Vol] 2.7 g/dL [facility] HCG ( test) IA.rapi d Ql (U)Ordered By: Gilson Castro on 05-16-2022 HCG ( test) Ql (U) Negative [facility] Hematocrit Auto (Bld) [Volum e fraction]Ordered By: Gilson Castro on 05-16-2022 Hematocrit (Bld) [Volume fraction] 39.4 % 36.0-46.0 [facility] Ketones Auto test strip (U) [Mass/Vol]Ordered By: Gilson Castro on 05-16-2022 Ketones (U) [Mass/Vol] 3+ Negative [facility] Laboratory - Chemistry and C hemistry - challengeOrdered By: Gilson Castro on 05-16-2022 Lipase [Catalytic activity/Vol] 26.0 U/L 22-51 [facility] Laboratory - Drug toxicology Ordered By: Gilson Castro on 05-16-2022 Opiates Ql (U) Negative Negative [facility] Laboratory - Hematology and Cell countsOrdered By: Gilson Castro on 05-16-2022 Nucleated RBC/100 WBC (Bld) [Ratio] 0.0 % 0-0.5 [facility] Lymphocytes Auto (Bld) [#/Vo l]Ordered By: Gilson Castro on 05-16-2022 Lymphocytes (Bld) [#/Vol] 1.9 10*3/uL 1.20-4.8 [facility] Lymphocytes/100 WBC Auto (Bl d)Ordered By: Gilson Castro on 05-16-2022 Lymphocytes/100 WBC (Bld) 18.7 % . [facility] MCH Auto (RBC) [Entitic mass ]Ordered By: Gilson Castro on 05-16-2022 MCH (RBC) [Entitic mass] 28.6 pg 25.0-35.0 [facility] MCHC Auto (RBC) [Mass/Vol]Or dered By: Gilson Castro on 05-16-2022 MCHC (RBC) [Mass/Vol] 34.1 g/dL 31.0-37.0 [facility] MCV Auto (RBC) [Entitic vol] Ordered By: Gilson Castro on 05-16-2022 MCV (RBC) [Entitic vol] 84.0 fL 78-102 [facility] Monocytes Auto (Bld) [#/Vol] Ordered By: Gilson Castro on 05-16-2022 Monocytes (Bld) [#/Vol] 0.9 10*3/uL 0.1-1.00 [facility] Monocytes/100 WBC Auto (Bld) Ordered By: Gilson Castro on 05-16-2022 Monocytes/100 WBC (Bld) 9.2 % . [facility] Neutrophils Auto (Bld) [#/Vo l]Ordered By: Gilson Castro on 05-16-2022 Neutrophils (Bld) [#/Vol] 7.1 10*3/uL 1.2-7.7 [facility] Neutrophils/100 WBC Auto (Bl d)Ordered By: Gilson Castro on 05-16-2022 Neutrophils/100 WBC (Bld) 71.0 % . [facility] Nitrite Test strip Ql (U)Ord ered By: Gilson Castro on 05-16-2022 Nitrite Ql (U) Negative Negative [facility] No Panel InformationOrdered By: Gilson Castro on 05-16-2022 Estimated GFR () > 60 mL/Min [facility] Comment on above: GFR estimated refere nce range: According to KDOQI guidelines, <60 ml/min/1.73m2 is sufficient to diagnose a patient with chronic kidney disease. Pharmacy Creatinine Clearance (Chem 109.65 [facility] Phencyclidine Screen Ql (U)O rdered By: Gilson Castro on 05-16-2022 Phencyclidine Ql (U) Negative Negative [facility] Platelet mean volume Auto (B ld) [Entitic vol]Ordered By: Gilson Castro on 05-16-2022 Platelet mean volume (Bld) [Entitic vol] 8.5 fL 6.3-10.7 [facility] Platelets Auto (Bld) [#/Vol] Ordered By: Gilson Castro on 05-16-2022 Platelets (Bld) [#/Vol] 241 10*3/uL 150-450 [facility] Protein Auto test strip (U) [Mass/Vol]Ordered By: Gilson Castro on 05-16-2022 Protein (U) [Mass/Vol] Trace mg/dL Negative [facility] Protein [Mass/volume] in Ser um or PlasmaOrdered By: Gilson Castro on 05-16-2022 Protein [Mass/Vol] 7.0 g/dL 6.1-7.9 [facility] [facility] RBC Auto (Bld) [#/Vol]Ordere d By: Gilson Castro on 05-16-2022 RBC (Bld) [#/Vol] 4.69 10*6/uL 4.10-5.10 [facility] Serum or plasma alanine florez otransferase measurement without P-5'-P (enzymatic activiOrdered By: Gilson Castro on 05-16-2022 ALT No additional P-5'-P [Catalytic activity/Vol] 23 U/L 10-60 [facility] Serum or plasma albumin/glob ulin mass ratioOrdered By: Gilson Castro on 05-16-2022 Albumin/Globulin [Mass ratio] 1.6 {ratio} [facility] Serum or plasma alkaline justin sphatase measurement (enzymatic activity/volume)Ordered By: Gilson Castro on 05-16-2022 ALP [Catalytic activity/Vol] 58 U/L 32-92 [facility] Serum or plasma aspartate am inotransferase measurement (enzymatic activity/volume)Ordered By: Gilson Castro on 05-16-2022 AST [Catalytic activity/Vol] 22 U/L 10-42 [facility] Serum or plasma calcium tammy urement (mass/volume)Ordered By: Gilson Castro on 05-16-2022 Calcium [Mass/Vol] 9.2 mg/dL 8.2-10.2 [facility] Serum or plasma chloride judy surement (moles/volume)Ordered By: Gilson Castro on 05-16-2022 Chloride [Moles/Vol] 97 mmol/L 95-114 [facility] Serum or plasma glucose tammy urement (mass/volume)Ordered By: Gilson Castro on 05-16-2022 Glucose [Mass/Vol] 90 mg/dL 70-100 [facility] Comment on above: ADA recommended refe rence range Random Glucose Reference Range is dependent on time and content of last meal. Glucose of more than 200 mg/dL in a nonstressed, ambulatory subject supports the diagnosis of Diabetes Mellitus. Serum or plasma potassium me asurement (moles/volume)Ordered By: Gilson Castro on 05-16-2022 Potassium [Moles/Vol] 3.2 mmol/L 3.5-5.[address] [facility] Serum or plasma sodium measu rement (moles/volume)Ordered By: Gilson Castro on 05-16-2022 Sodium [Moles/Vol] 135 mmol/L 136-146 [facility] Serum or plasma total biliru bin measurement (mass/volume)Ordered By: Gilson Castro on 05-16-2022 Bilirubin [Mass/Vol] 1.0 mg/dL 0.3-1.2 [facility] Serum or plasma total carbon dioxide measurement (moles/volume)Ordered By: Gilson Castro on 05-16-2022 CO2 [Moles/Vol] 24.6 mmol/L 22.0-30.0 [facility] Serum or plasma urea nitroge n measurement (mass/volume)Ordered By: Gilson Castro on 05-16-2022 Urea nitrogen [Mass/Vol] 23 mg/dL 9- [facility] Specific gravity Auto test s trip (U) [Rel density]Ordered By: Gilson Castro on 05-16-2022 Specific gravity (U) [Rel density] 1.023 1.001-1.03 0 [facility] Squamous epithelial cells de tection in urine sediment by light microscopyOrdered By: Gilson Castro on 05-16-2022 Epithelial cells.squamous LM Ql (Urine sed) 20-30 [HPF] 0-2 [facility] Urine bacteria detection by automated methodOrdered By: Gilson Castro on 05-16-2022 Bacteria Auto Ql (U) 1+ None Seen [facility] Urine clarity by refractomet ry automatedOrdered By: Gilson Castro on 05-16-2022 Clarity Refractometry automated (U) Turbid Clear [facility] Urine cocaine detectionOrder ed By: Gilson Castro on 05-16-2022 Cocaine Ql (U) Negative Negative [facility] Urine glucose measurement by automated test strip (mass/volume)Ordered By: Gilson Castro on 05-16-2022 Glucose Auto test strip (U) [Mass/Vol] Normal mg/dL Normal [facility] Urine hemoglobin detection b y automated test stripOrdered By: Gilson Castro on 05-16-2022 Hemoglobin Auto test strip Ql (U) Negative Negative [facility] Urine leukocyte esterase det ection by automated test stripOrdered By: Gilson Castro on 05-16-2022 Leukocyte esterase Auto test strip Ql (U) 2+ Negative [facility] Urobilinogen Auto test strip (U) [Mass/Vol]Ordered By: Gilson Castro on 05-16-2022 Urobilinogen (U) [Mass/Vol] Normal mg/dL Normal [facility] pH Auto test strip (U)Ordere d By: Gilson Castro on 05-16-2022 pH (U) 8.0 [pH] 5.0-9.0 [facility] Albumin [Mass/volume] in Ser um or PlasmaOrdered By: Art Bianchi on 05-15-2022 Albumin [Mass/Vol] 4.7 g/dL 3.2-5.5 [facility] Basophils Auto (Bld) [#/Vol] Ordered By: Art Bianchi on 05-15-2022 Basophils (Bld) [#/Vol] 0.0 10*3/uL 0.0-0.1 [facility] Basophils/100 WBC Auto (Bld) Ordered By: Art Bianchi on 05-15-2022 Basophils/100 WBC (Bld) 0.2 % . [facility] Blood hemoglobin measurement (mass/volume)Ordered By: Art Bianchi on 05-15-2022 Hemoglobin (Bld) [Mass/Vol] 13.6 g/dL 12.0-16.0 [facility] Blood leukocytes automated c ount (number/volume)Ordered By: Art Bianchi on 05-15-2022 WBC (Bld) [#/Vol] 14.0 10*3/uL 4.5-13.5 [facility] Creatinine and Glomerular fi ltration rate.predicted panel (S/P/Bld)Ordered By: Art Bianchi on 05-15-2022 Creatinine [Mass/Vol] 0.76 mg/dL 0.44-1.[address] [facility] Eosinophils Auto (Bld) [#/Vo l]Ordered By: Art Bianchi on 05-15-2022 Eosinophils (Bld) [#/Vol] 0.0 10*3/uL 0.0-0.7 [facility] Eosinophils/100 WBC Auto (Bl d)Ordered By: Art Bianchi on 05-15-2022 Eosinophils/100 WBC (Bld) 0.4 % . [facility] Erythrocyte distribution wid th Auto (RBC) [Ratio]Ordered By: Art Bianchi on 05-15-2022 Erythrocyte distribution width (RBC) [Ratio] 13.7 % 11.9-15.3 [facility] Estimated glomerular filtrat ion rate (GFR) non- AmericanOrdered By: Art Bianchi on 05-15-2022 GFR/1.73 sq M.predicted among non-blacks MDRD (S/P/Bld) [Vol rate/Area] > 60 mL/Min [facility] Globulin Calc (S) [Mass/Vol] Ordered By: Art Bianchi on 05-15-2022 Globulin (S) [Mass/Vol] 3.2 g/dL [facility] Hematocrit Auto (Bld) [Volum e fraction]Ordered By: Art Bianchi on 05-15-2022 Hematocrit (Bld) [Volume fraction] 41.0 % 36.0-46.0 [facility] Laboratory - Chemistry and C hemistry - challengeOrdered By: Art Bianchi on 05-15-2022 Lipase [Catalytic activity/Vol] 24.0 U/L 22-51 [facility] Laboratory - Hematology and Cell countsOrdered By: Art Bianchi on 05-15-2022 Nucleated RBC/100 WBC (Bld) [Ratio] 0.0 % 0-0.5 [facility] Lymphocytes Auto (Bld) [#/Vo l]Ordered By: Art Bianchi on 05-15-2022 Lymphocytes (Bld) [#/Vol] 2.6 10*3/uL 1.20-4.8 [facility] Lymphocytes/100 WBC Auto (Bl d)Ordered By: Art Bianchi on 05-15-2022 Lymphocytes/100 WBC (Bld) 18.4 % . [facility] MCH Auto (RBC) [Entitic mass ]Ordered By: Art Bianchi on 05-15-2022 MCH (RBC) [Entitic mass] 28.0 pg 25.0-35.0 [facility] MCHC Auto (RBC) [Mass/Vol]Or dered By: Art Bianchi on 05-15-2022 MCHC (RBC) [Mass/Vol] 33.3 g/dL 31.0-37.[address] [facility] MCV Auto (RBC) [Entitic vol] Ordered By: Art Bianchi on 05-15-2022 MCV (RBC) [Entitic vol] 84.1 fL 78-102 [facility] Monocytes Auto (Bld) [#/Vol] Ordered By: Art Bianchi on 05-15-2022 Monocytes (Bld) [#/Vol] 1.2 10*3/uL 0.1-1.00 [facility] Monocytes/100 WBC Auto (Bld) Ordered By: Art Bianchi on 05-15-2022 Monocytes/100 WBC (Bld) 8.3 % . [facility] Neutrophils Auto (Bld) [#/Vo l]Ordered By: Art Bianchi on 05-15-2022 Neutrophils (Bld) [#/Vol] 10.2 10*3/uL 1.2-7.7 [facility] Neutrophils/100 WBC Auto (Bl d)Ordered By: Art Bianchi on 05-15-2022 Neutrophils/100 WBC (Bld) 72.7 % . [facility] No Panel InformationOrdered By: Art Bianchi on 05-15-2022 Estimated GFR () > 60 mL/Min [facility] Comment on above: GFR estimated refere nce range: According to KDOQI guidelines, <60 ml/min/1.73m2 is sufficient to diagnose a patient with chronic kidney disease. Pharmacy Creatinine Clearance (Chem 115.34 [facility] Platelet mean volume Auto (B ld) [Entitic vol]Ordered By: Art Bianchi on 05-15-2022 Platelet mean volume (Bld) [Entitic vol] 8.8 fL 6.3-10.7 [facility] Platelets Auto (Bld) [#/Vol] Ordered By: Art Bianchi on 05-15-2022 Platelets (Bld) [#/Vol] 315 10*3/uL 150-450 [facility] Protein [Mass/volume] in Ser um or PlasmaOrdered By: Art Bianchi on 05-15-2022 Protein [Mass/Vol] 7.9 g/dL 6.1-7.9 [facility] RBC Auto (Bld) [#/Vol]Ordere d By: Art Bianchi on 05-15-2022 RBC (Bld) [#/Vol] 4.88 10*6/uL 4.10-5.10 [facility] Serum or plasma alanine florez otransferase measurement without P-5'-P (enzymatic activiOrdered By: Art Bianchi on 05-15-2022 ALT No additional P-5'-P [Catalytic activity/Vol] 25 U/L 10-60 [facility] Serum or plasma albumin/glob ulin mass ratioOrdered By: Art Bianchi on 05-15-2022 Albumin/Globulin [Mass ratio] 1.5 {ratio} [facility] Serum or plasma alkaline justin sphatase measurement (enzymatic activity/volume)Ordered By: Art Bianchi on 05-15-2022 ALP [Catalytic activity/Vol] 66 U/L 32-92 [facility] Serum or plasma aspartate am inotransferase measurement (enzymatic activity/volume)Ordered By: Art Bianchi on 05-15-2022 AST [Catalytic activity/Vol] 33 U/L 10-42 [facility] Serum or plasma calcium tammy urement (mass/volume)Ordered By: Art Bianchi on 05-15-2022 Calcium [Mass/Vol] 10.1 mg/dL 8.2-10.2 [facility] Serum or plasma chloride judy surement (moles/volume)Ordered By: Art Bianchi on 05-15-2022 Chloride [Moles/Vol] 94 mmol/L 95-114 [facility] Serum or plasma glucose tammy urement (mass/volume)Ordered By: Art Bianchi on 05-15-2022 Glucose [Mass/Vol] 102 mg/dL 70-100 [facility] Comment on above: ADA recommended refe rence range Random Glucose Reference Range is dependent on time and content of last meal. Glucose of more than 200 mg/dL in a nonstressed, ambulatory subject supports the diagnosis of Diabetes Mellitus. Serum or plasma potassium me asurement (moles/volume)Ordered By: Art Bianchi on 05-15-2022 Potassium [Moles/Vol] 3.1 mmol/L 3.5-5.[address] [facility] Serum or plasma sodium measu rement (moles/volume)Ordered By: Art Bianchi on 05-15-2022 Sodium [Moles/Vol] 135 mmol/L 136-146 [facility] Serum or plasma total biliru bin measurement (mass/volume)Ordered By: Art Bianchi on 05-15-2022 Bilirubin [Mass/Vol] 1.2 mg/dL 0.3-1.2 [facility] Serum or plasma total carbon dioxide measurement (moles/volume)Ordered By: Art Bianchi on 05-15-2022 CO2 [Moles/Vol] 22.2 mmol/L 22.0-30.0 [facility] Serum or plasma urea nitroge n measurement (mass/volume)Ordered By: Art Bianchi on 05-15-2022 Urea nitrogen [Mass/Vol] 23 mg/dL 9-23 [facility] Albumin [Mass/volume] in Ser um or PlasmaOrdered By: Art Bianchi on 05-13-2022 Albumin [Mass/Vol] 4.3 g/dL 3.2-5.5 [facility] Automated erythrocytes count in urine sediment (number/area)Ordered By: Art Bianchi on 05-13-2022 RBC Auto (Urine sed) [#/Area] 1-2 [HPF] 0-4 [facility] Automated leukocytes count i n urine sediment (number/area)Ordered By: Art Bianchi on 05-13-2022 WBC Auto (Urine sed) [#/Area] 1-2 [HPF] 0-4 [facility] Basophils Auto (Bld) [#/Vol] Ordered By: Art Bianchi on 05-13-2022 Basophils (Bld) [#/Vol] 0.1 10*3/uL 0.0-0.1 [facility] Basophils/100 WBC Auto (Bld) Ordered By: Art Bianchi on 05-13-2022 Basophils/100 WBC (Bld) 1.0 % . [facility] Bilirubin Test strip Ql (U)O rdered By: Art Bianchi on 05-13-2022 Bilirubin Ql (U) Negative Negative [facility] Blood hemoglobin measurement (mass/volume)Ordered By: Art Bianchi on 05-13-2022 Hemoglobin (Bld) [Mass/Vol] 13.7 g/dL 12.0-16.0 [facility] Blood leukocytes automated c ount (number/volume)Ordered By: Art Bianchi on 05-13-2022 WBC (Bld) [#/Vol] 10.4 10*3/uL 4.5-13.5 [facility] Color Auto (U)Ordered By: Adrian Bianchi on 05-13-2022 Color (U) Yellow Yellow [facility] Creatinine and Glomerular fi ltration rate.predicted panel (S/P/Bld)Ordered By: Art Bianchi on 05-13-2022 Creatinine [Mass/Vol] 0.76 mg/dL 0.44-1.[address] [facility] Eosinophils Auto (Bld) [#/Vo l]Ordered By: Art Bianchi on 05-13-2022 Eosinophils (Bld) [#/Vol] 0.5 10*3/uL 0.0-0.7 [facility] Eosinophils/100 WBC Auto (Bl d)Ordered By: Art Bianchi on 05-13-2022 Eosinophils/100 WBC (Bld) 4.6 % . [facility] Erythrocyte distribution wid th Auto (RBC) [Ratio]Ordered By: Art Bianchi on 05-13-2022 Erythrocyte distribution width (RBC) [Ratio] 13.6 % 11.9-15.3 [facility] Estimated glomerular filtrat ion rate (GFR) non- AmericanOrdered By: Art Bianchi on 05-13-2022 GFR/1.73 sq M.predicted among non-blacks MDRD (S/P/Bld) [Vol rate/Area] > 60 mL/Min [facility] Globulin Calc (S) [Mass/Vol] Ordered By: Art Bianchi on 05-13-2022 Globulin (S) [Mass/Vol] 2.7 g/dL [facility] HCG ( test) IA.rapi d Ql (U)Ordered By: Art Bianchi on 05-13-2022 HCG ( test) Ql (U) Negative [facility] Hematocrit Auto (Bld) [Volum e fraction]Ordered By: Art Bianchi on 05-13-2022 Hematocrit (Bld) [Volume fraction] 40.5 % 36.0-46.0 [facility] Ketones Auto test strip (U) [Mass/Vol]Ordered By: Art Bianchi on 05-13-2022 Ketones (U) [Mass/Vol] Trace Negative [facility] Laboratory - Hematology and Cell countsOrdered By: Art Bianchi on 05-13-2022 Nucleated RBC/100 WBC (Bld) [Ratio] 0.0 % 0-0.5 [facility] Laboratory - UrinalysisOrder ed By: Art Bianchi on 05-13-2022 Hyaline casts LM Ql (Urine sed) 0-8 [LPF] 0-8 [facility] Lymphocytes Auto (Bld) [#/Vo l]Ordered By: Art Bianchi on 05-13-2022 Lymphocytes (Bld) [#/Vol] 1.4 10*3/uL 1.20-4.8 [facility] Lymphocytes/100 WBC Auto (Bl d)Ordered By: Art Bianchi on 05-13-2022 Lymphocytes/100 WBC (Bld) 13.1 % . [facility] MCH Auto (RBC) [Entitic mass ]Ordered By: Art Bianchi on 05-13-2022 MCH (RBC) [Entitic mass] 28.6 pg 25.0-35.0 [facility] MCHC Auto (RBC) [Mass/Vol]Or dered By: Art Bianchi on 05-13-2022 MCHC (RBC) [Mass/Vol] 33.7 g/dL 31.0-37.[address] [facility] MCV Auto (RBC) [Entitic vol] Ordered By: Art Bianchi on 05-13-2022 MCV (RBC) [Entitic vol] 84.7 fL 78-102 [facility] Monocytes Auto (Bld) [#/Vol] Ordered By: Art Bianchi on 05-13-2022 Monocytes (Bld) [#/Vol] 0.4 10*3/uL 0.1-1.00 [facility] Monocytes/100 WBC Auto (Bld) Ordered By: Art Bianchi on 05-13-2022 Monocytes/100 WBC (Bld) 4.2 % . [facility] Neutrophils Auto (Bld) [#/Vo l]Ordered By: Art Bianchi on 05-13-2022 Neutrophils (Bld) [#/Vol] 8.0 10*3/uL 1.2-7.7 [facility] Neutrophils/100 WBC Auto (Bl d)Ordered By: Art Bianchi on 05-13-2022 Neutrophils/100 WBC (Bld) 77.1 % . [facility] Nitrite Test strip Ql (U)Ord ered By: Art Bianchi on 05-13-2022 Nitrite Ql (U) Negative Negative [facility] No Panel InformationOrdered By: Art Bianchi on 05-13-2022 Estimated GFR () > 60 mL/Min [facility] Comment on above: GFR estimated refere nce range: According to KDOQI guidelines, <60 ml/min/1.73m2 is sufficient to diagnose a patient with chronic kidney disease. Pharmacy Creatinine Clearance (Chem 112.80 [facility] Platelet mean volume Auto (B ld) [Entitic vol]Ordered By: Art Bianchi on 05-13-2022 Platelet mean volume (Bld) [Entitic vol] 8.6 fL 6.3-10.7 [facility] Platelets Auto (Bld) [#/Vol] Ordered By: Art Bianchi on 05-13-2022 Platelets (Bld) [#/Vol] 264 10*3/uL 150-450 [facility] Protein Auto test strip (U) [Mass/Vol]Ordered By: Art Bianchi on 05-13-2022 Protein (U) [Mass/Vol] 30 mg/dL Negative [facility] Protein [Mass/volume] in Ser um or PlasmaOrdered By: Art Bianchi on 05-13-2022 Protein [Mass/Vol] 7.0 g/dL 6.1-7.9 [facility] RBC Auto (Bld) [#/Vol]Ordere d By: Art Bianchi on 05-13-2022 RBC (Bld) [#/Vol] 4.78 10*6/uL 4.10-5.10 [facility] Serum or plasma alanine florez otransferase measurement without P-5'-P (enzymatic activiOrdered By: Art Bianchi on 05-13-2022 ALT No additional P-5'-P [Catalytic activity/Vol] 19 U/L 10-60 [facility] Serum or plasma albumin/glob ulin mass ratioOrdered By: Art Bianchi on 05-13-2022 Albumin/Globulin [Mass ratio] 1.6 {ratio} [facility] Serum or plasma alkaline justin sphatase measurement (enzymatic activity/volume)Ordered By: Art Bianchi on 05-13-2022 ALP [Catalytic activity/Vol] 69 U/L 32-92 [facility] Serum or plasma aspartate am inotransferase measurement (enzymatic activity/volume)Ordered By: Art Bianchi on 05-13-2022 AST [Catalytic activity/Vol] 19 U/L 10-42 [facility] Serum or plasma calcium tammy urement (mass/volume)Ordered By: Art Bianchi on 05-13-2022 Calcium [Mass/Vol] 9.9 mg/dL 8.2-10.2 [facility] Serum or plasma chloride judy surement (moles/volume)Ordered By: Art Bianchi on 05-13-2022 Chloride [Moles/Vol] 107 mmol/L 95-114 [facility] Serum or plasma glucose tammy urement (mass/volume)Ordered By: Art Bianchi on 05-13-2022 Glucose [Mass/Vol] 140 mg/dL 70-100 [facility] Comment on above: ADA recommended refe rence range Random Glucose Reference Range is dependent on time and content of last meal. Glucose of more than 200 mg/dL in a nonstressed, ambulatory subject supports the diagnosis of Diabetes Mellitus. Serum or plasma potassium me asurement (moles/volume)Ordered By: Art Bianchi on 05-13-2022 Potassium [Moles/Vol] 3.7 mmol/L 3.5-5.[address] [facility] Serum or plasma sodium measu rement (moles/volume)Ordered By: Art Bianchi on 05-13-2022 Sodium [Moles/Vol] 138 mmol/L 136-146 [facility] Serum or plasma total biliru bin measurement (mass/volume)Ordered By: Art Bianchi on 05-13-2022 Bilirubin [Mass/Vol] 0.5 mg/dL 0.3-1.2 [facility] Serum or plasma total carbon dioxide measurement (moles/volume)Ordered By: Art Bianchi on 05-13-2022 CO2 [Moles/Vol] 19.0 mmol/L 22.0-30.0 [facility] Serum or plasma urea nitroge n measurement (mass/volume)Ordered By: Art Bianchi on 05-13-2022 Urea nitrogen [Mass/Vol] 11 mg/dL 9-23 [facility] Specific gravity Auto test s trip (U) [Rel density]Ordered By: Art Bianchi on 05-13-2022 Specific gravity (U) [Rel density] 1.018 1.001-1.03 0 [facility] Squamous epithelial cells de tection in urine sediment by light microscopyOrdered By: Art Bianchi on 05-13-2022 Epithelial cells.squamous LM Ql (Urine sed) 20-30 [HPF] 0-2 [facility] Urine bacteria detection by automated methodOrdered By: Art Bianchi on 05-13-2022 Bacteria Auto Ql (U) 2+ None Seen [facility] Urine clarity by refractomet ry automatedOrdered By: Art Bianchi on 05-13-2022 Clarity Refractometry automated (U) Cloudy Clear [facility] Urine glucose measurement by automated test strip (mass/volume)Ordered By: Art Bianchi on 05-13-2022 Glucose Auto test strip (U) [Mass/Vol] Normal mg/dL Normal [facility] Urine hemoglobin detection b y automated test stripOrdered By: Art Bianchi on 05-13-2022 Hemoglobin Auto test strip Ql (U) Negative Negative [facility] Urine leukocyte esterase det ection by automated test stripOrdered By: Art Bianchi on 05-13-2022 Leukocyte esterase Auto test strip Ql (U) Negative Negative [facility] Urobilinogen Auto test strip (U) [Mass/Vol]Ordered By: Art Bianchi on 05-13-2022 Urobilinogen (U) [Mass/Vol] Normal mg/dL Normal [facility] pH Auto test strip (U)Ordere d By: Art Bianchi on 05-13-2022 pH (U) [pH] 5.0-9.0 [facility] CNPNon 10-10-2021 CNPN Telephone (OTOLMN) PILI PARIKH ([id number]) 3 F Date Time Provider Department 10/10/21 ROLANDO WOOTEN OTOLSONYA During your visit today, we recorded the following information about you: Rolando Wooten MD 10/10/2021 12:44 PM Signed Spoke with patient. Monospot positive. Waiting on CBC with diff - wbc 10. 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 Ordered further labs as somewhat atypical [...] [B27.80] Order(s):HEPATIC FUNCTION PNL [SQHFP] Order #: [id number] FUTURE HIV 1 2 COMBO(AG/AB),WITH REFLEX TO DIFFERENTIATION [SQHIV12] Order #: [id number] FUTURE CMV IGG/IGM TITER [[id number]] Order #: [id number] FUTURE LISSA-HENSON VCA IGM [SQEBVM] Order #: [id number] FUTURE EBV EA AB IGG [[id number]] Order #: [id number] FUTURE LISSA-HENSON VCA IGG [SQEBVG] Order #: [id number] FUTURE CMV IGG/IGM TITER [[id number]] Order #: [id number] EBV EA AB IGG [[id number]] Order #: [id number] Prescriptions as of 10/27/2021 - HYDROcodone-acetaminophen (HYCET) [...] Status:Closed by ROLANDO WOOTEN on 10/10/21 Normal [facility] AFB Cult and Stainon 021 AFB Cult and Stain Sp. Request/Comment: - Specimen received in sterile container. Smear Result - No acid fast bacilli seen by fluorochrome stain Culture Result - No Acid Fast Bacilli isolated after 46 days Normal [facility] Comment on above: Performed By: #### A FC #### [facility] [address], [place] [address] Anaerobe Cultureon 1 Anaerobe Culture Sp. Request/Comment: - Specimen received in sterile container. Culture Result - Few Mixed anaerobic jori --> ABNORMAL ALERT No Bacteroides fragilis group isolated. No Clostridium perfringens isolated Critically abnormal [facility] Comment on above: Performed By: #### A NACUL #### [facility] [address] [place], [place] [address] Basic Metabolic Panlon 10-09 Anion gap [Moles/Vol] 14 mmol/L Normal 9-18 [facility] Comment on above: Result Comment: (NOT E) Reference ranges for this patient's age group have not been established. These reference ranges reflect verified or established ranges for the adult population. Interpret these ranges with caution using the clinical context and additional reference resources. Performed By: #### C BCDIF, BMP, MONOLX #### [facility] [address] [place], [place] [address] Calcium [Mass/Vol] 9.4 mg/dL Normal 8.4-10.2 [facility] Comment on above: Performed By: #### C BCDIF, BMP, MONOLX #### [facility] [address] [place], [place] [address] Chloride [Moles/Vol] 99 mmol/L Normal 97-105 [facility] Comment on above: Result Comment: (NOT E) Reference ranges for this patient's age group have not been established. These reference ranges reflect verified or established ranges for the adult population. Interpret these ranges with caution using the clinical context and additional reference resources. Performed By: #### C BCCHRISTEL SANDOVAL, MONOLX #### [facility] [place], [place] [address] CO2 [Moles/Vol] 23 mmol/L Normal 22-30 [facility] Comment on above: Result Comment: (NOT E) Reference ranges for this patient's age group have not been established. These reference ranges reflect verified or established ranges for the adult population. Interpret these ranges with caution using the clinical context and additional reference resources. Performed By: #### C BCCHRISTEL SANDOVAL, MONOLX #### [facility] [address] [place], [place] [address] Creatinine [Mass/Vol] 0.64 mg/dL Normal 0.58-0.96 [facility] Comment on above: Result Comment: Refe rence ranges for this patient's age group have not been established. These reference ranges reflect verified or established ranges for the adult population. Interpret these ranges with caution using the clinical context and additional reference resources. Performed By: #### C CHRISTEL WHITESIDE, MONOLX #### [facility] [address] [place], [place] [address] eGFR-Ped. Factor 0.65 Normal [facility] Comment on above: Result Comment: eGFR (Estimated [...] Performed By: #### C BCSAULFCHRISTEL, MONOLX #### [facility] [address] [place], [place] [address] Glucose [Mass/Vol] 89 mg/dL Normal 74-99 [facility] Comment on above: Result Comment: Refe rence ranges for this patient's age group have not been established. These reference ranges reflect verified or established ranges for the adult population. Interpret these ranges with caution using the clinical context and additional reference resources. The [place] [employer] (ADA) provides guidance for cutoff [...] Standards of Medical Care in Diabetes 2016, [place] [employer]. Diabetes Care. 2016.39(Suppl 1). Performed By: #### C BCDIF, BMP, MONOLX #### [facility] [address] [place], [place] [address] Potassium [Moles/Vol] 4.4 mmol/L Normal 3.7-5.1 [facility] Comment on above: Result Comment: (NOT E) Reference ranges for this patient's age group have not been established. These reference ranges reflect verified or established ranges for the adult population. Interpret these ranges with caution using the clinical context and additional reference resources. Performed By: #### C BCDIF, BMP, MONOLX #### [facility] [place], [place] [address] Sodium [Moles/Vol] 136 mmol/L Normal 136-144 [facility] Comment on above: Result Comment: (NOT E) Reference ranges for this patient's age group have not been established. These reference ranges reflect verified or established ranges for the adult population. Interpret these ranges with caution using the clinical context and additional reference resources. Performed By: #### C BCDIF, BMP, MONOLX #### [facility] [address] [place], [place] [address] Urea nitrogen [Mass/Vol] 8 mg/dL Normal 5-18 [facility] Comment on above: Performed By: #### C BCDIF, BMP, MONOLX #### [facility] [address] [place] [address] CBC and Differentialon 10-09 Abs Baso 0.11 k/uL High <0.11 [facility] Comment on above: Performed By: #### C BCDIF, BMP, MONOLX #### [place] [address] [place] [phone] Abs Lym 4.27 K/uL High 1.00-4.00 [facility] Comment on above: Performed By: #### C BCDIF, BMP, MONOLX #### [place] [phone] Abs Tunica 1.10 k/uL High <0.87 [facility] Comment on above: Performed By: #### C BCDIF, BMP, MONOLX #### [place] [address] [place] [phone] Abs Neut 5.37 k/uL Normal 1.45-7.50 [facility] Comment on above: Performed By: #### C BCDIF, BMP, MONOLX #### [place] [address] [place] [phone] Basophils/100 WBC (Bld) 1 % Normal [facility] Comment on above: Performed By: #### C BCDIF, BMP, MONOLX #### [place] [address] [place] [address] Diff Comments SEE COMMENT Normal [facility] Comment on above: Result Comment: Plat elet estimate adequate Performed By: #### C BCDIF, BMP, MONOLX #### [place] [address] [place] [address] Eosinophils (Bld) [#/Vol] 0.11 10*3/uL Normal <0.46 [facility] Comment on above: Performed By: #### C BCDIF, BMP, MONOLX #### [facility] [address] [place], [place] [address] Eosinophils/100 WBC (Bld) 1 % Normal [facility] Comment on above: Performed By: #### C BCDIF, BMP, MONOLX #### [place] [address] [place], [place] [address] Erythrocyte distribution width (RBC) [Ratio] 13.4 % Normal 11.5-15.0 [facility] Comment on above: Performed By: #### C BCDIF, BMP, MONOLX #### [place] [address] [place], [place] [address] Hematocrit (Bld) [Volume fraction] 39.8 % Normal 36.0-46.0 [facility] Comment on above: Performed By: #### C BCDIF, BMP, MONOLX #### [place] [address] [place], [place] [address] Hemoglobin (Bld) [Mass/Vol] 12.5 g/dL Normal 11.5-15.5 [facility] Comment on above: Performed By: #### C BCDIF, BMP, MONOLX #### [facility] [address] [place], [place] [address] Lymphocytes/100 WBC (Bld) 39 % Normal [facility] Comment on above: Performed By: #### C BCDIF, BMP, MONOLX #### [facility] [address] [place], [place] [address] MCH 27.4 pG Normal 26.0-34.0 [facility] Comment on above: Performed By: #### C BCDIF, BMP, MONOLX #### [facility] [address] [place], [place] [address] MCHC (RBC) [Mass/Vol] 31.4 g/dL Normal 30.5-36.0 [facility] Comment on above: Performed By: #### C BCDIF, BMP, MONOLX #### [facility] [address] [place], [place] [address] MCV (RBC) [Entitic vol] 87.3 fL Normal 80.0-100.0 [facility] Comment on above: Performed By: #### C BCDIF, BMP, MONOLX #### [facility] [address] [place], [place] [address] Monocytes/100 WBC (Bld) 10 % Normal [facility] Comment on above: Performed By: #### C BCDIF, BMP, MONOLX #### [place] [address] [place], [place] [address] Neutrophils/100 WBC (Bld) 49 % Normal [facility] Comment on above: Performed By: #### C BCDIF, BMP, MONOLX #### [place] [address] [place], [place] [address] Platelet mean volume (Bld) [Entitic vol] 10.3 fL Normal 9.0-12.7 [facility] Comment on above: Performed By: #### C BCDIF, BMP, MONOLX #### [place] [address] [place], [place] [address] Platelets (Bld) [#/Vol] 218 10*3/uL Normal 150-400 [facility] Comment on above: Performed By: #### C BCDIF, BMP, MONOLX #### [facility] [address] [place], [place] [address] RBC (Bld) [#/Vol] 4.56 10*6/uL Normal 3.90-5.20 [facility] Comment on above: Performed By: #### C BCDIF, BMP, MONOLX #### [facility] [address] [place], [place] [address] Red Cell Morph SEE COMMENT Normal [facility] Comment on above: Result Comment: Slig ht Polychromasia Few Ovalocytes Performed By: #### C BCDIF, BMP, MONOLX #### [facility] [address] [place], [place] [address] WBC (Bld) [#/Vol] 10.95 10*3/uL Normal 3.70-11.00 [facility] Comment on above: Performed By: #### C BCDIF, BMP, MONOLX #### [facility] [address] [place], [place] [address] CNOVon 10-09-2021 CNOV Office Visit (OTOLMN ) PILI PARIKH ([id number]) 3 F Date Time Provider Department 10/09/21 [...] Rolando Wooten MD 11/13/2021 1:09 AM Signed [place] [facility] Consult This consult was requested by [...] passageways a (more content not included)... Normal [facility] Fungal Cultureon 10-09-2021 Fungal Culture Sp. Request/Comment: - Specimen received in sterile container. Culture Result - No Fungus isolated after 28 days Normal [facility] Comment on above: Performed By: #### F CUL #### [facility] [address] [place], [place] [id number] [place] Slide Teston 10-09-2021 [place] Slide Test Positive Critically abnormal Negative [facility] Comment on above: Performed By: #### C BCDIF, BMP, MONOLX #### [facility] [address] [place], [place] [id number] Wound Culture/Stainon 2020 Wound Culture/Stain Sp. Request/Comment: - Swab Smear Result - Rare Gram positive cocci --> ABNORMAL ALERT Rare Polymorphonuclear leukocytes Culture Result - Rare Mixed oral jori For wound culture, tissue or aspirates are superior to swab specimens. If a swab must be used, eSwab is preferred. Critically abnormal [facility] Comment on above: Performed By: #### W CUL #### [facility] [address] [place] [id number] Discharge Summaryon 06-28-20 Discharge Summary Send Summary:Dischar ge Summary Providers:Provider RoleProvider Name? ReferringRadha Unger? PrimaryBuMelida franco? AttendingJonas Mancuso Note Recipients: Melida Daniel MD - [id number] [[id number]]Radha Unger, Jonas Syed MD Discharge: Summary:Admission Date: .23-Jun-2018 01:12:00Discharge Date: [id number] Physician at Discharge: Jonas Mancusoission Reason: Atenolol and tylenol overdose(1)Final Discharge Diagnoses: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 Nasal Solution; USE 1 SPRAY IN EACH NOSTRIL TWICE DAILY;Therapy: 22Dec2017 to (Evaluate:25Dec2017) Requested for: 22Dec2017; LastRx:22Dec2017 OrderedAlbuterol Sulfate (2.5 MG/3ML) 0.083% Inhalation Nebulization Solution; Inhale one vialevery 4-6 hours as needed for cough, wheezing and shortness of breath;Therapy: 23Sep2014 to (Evaluate:20Oct2015) Requested for: 24Mar2015; LastRx:27Jsw3631 OrderedAmitriptyline HCl - 25 MG Oral Tablet; TAKE 1 TABLET AT BEDTIME;Therapy: 16Ufa5618 to (Evaluate:40Gzb9860) Requested for: 40Hkw6768; LastRx:24Vet8198 OrderedAtenolol 25 MG Oral Tablet; TAKE 1 TABLET DAILY;Therapy: (Recorded:85Gda4742) to RecordedCyproheptadine HCl - 4 MG Oral Tablet; TAKE 1 TABLET EVERY 8 HOURS DAILY Requested for: 02Sep2017; Last Rx:03Ocp7118 OrderedFludrocortisone Acetate 0.1 MG Oral Tablet; take one tablet twice a day;Therapy: (Recorded:32Kiw2859) to RecordedGabapentin 300 MG Oral Capsule; TAKE 1 CAPSULE 3 TIMES DAILY;Therapy: 28Sep2017 to (Evaluate:11Gci5012) Requested for: 18Feb2018; LastRx:18Feb2018 OrderedHyoscyamine Sulfate 0.125 MG Oral Tablet Disintegrating; 2 tablets orally every 8 hours Requested for: 28Sep2017; Last Rx:28Sep2017 OrderedLansoprazole 30 MG Oral Capsule Delayed Release; TAKE 1 CAPSULE EVERYMORNING DAILY;Therapy: 05Icc9472 to (Evaluate:31Oix0793) Requested for: 39Vmy2680; LastRx:18Apr2018 OrderedMagnesium Oxide 400 MG Oral Tablet; 1 TABLET ORALLY ONCE A DAY;Therapy: (Recorded:00Rai7611) to RecordedOndansetron HCl - 8 MG Oral Tablet; TAKE 1 TABLET 3 times daily PRN vomiting;Therapy: 16Dec2017 to (Evaluate:41Oyc7128) Requested for: 18Apr2018; LastRx:18Apr2018 OrderedPhenergan 25 MG SUPP; INSERT 1 SUPPOSITORY RECTALLY EVERY 12 HOURS ASNEEDED FOR NAUSEA AND VOMITING;Therapy: 48Lxc3625 to (Last Rx:16Dec2017) Requested for: 16Dec2017 OrderedPredniSONE 20 MG Oral Tablet; Take 3 tablets once daily for 5-7 days. To be used in thesetting of a severe asthma flare-up. Please call the office prior to starting;Therapy: 23Sep2014 to (Last Rx:70Sog1418) Requested for: 14Apr2018 OrderedProAir HFA 108 (90 Base) MCG/ACT Inhalation Aerosol Solution; Inhale 2-4 puffs every4-6 hours as needed for cough, wheezing or shortness of breath and prior to exercise;Therapy: 23Sep2014 to (Last Rx:78Ssm3589) Requested for: 24Mar2015 OrderedPromethazine HCl - 25 MG Oral Tablet; 1 tablet orally every 12 hours as needed fornausea/vomiting Requested for: 16Dec2017; Last Rx:16Dec2017 OrderedQvar 80 MCG/ACT Inhalation Aerosol Solution; INHALE TWO PUFFS BY MOUTH TWICEA DAY WITH A SPACER;Therapy: 23Sep2014 to (Last Rx:17Mes6328) Requested for: 85Yaq5688 OrderedTri-Sprintec 0.18/0.215/0.25 MG-35 MCG Oral Tablet;Therapy: 23Kdn6488 to RecordedUnspecified Medication; Vitamin B2-400 Oral Capsule1 capsule orally once a day;Therapy: (Recorded:16Ctx5595) to RecordedVitamin D 1000 UNIT Oral Tablet; TAKE 1 TABLET DAILY;Therapy: 14Apr2018 to (Evaluate:92Eep4297) Requested for: 18Apr2018; LastRx:18Apr2018 Ordered Signatures Electronically signed by : Mere Simpson APRN-JIMMYS; Jun 05 2018 10:46AM EST (Author) [facility] Discharge Summaryon 08-24-20 Discharge Summary Send Summary:Dischar ge Summary Providers:Provider Role Provider Name? Referring Dali Mcintosh? Attending Adeola Colon? Primary Zac Daniel Recipients: Adeola Colon MD Baez-Socorro, Virginia M, MD Bumagina, Natalie, MD - [phone] [[id number]]Dali Mcintosh MD - [id number] [Preferred]Discharge:Summar y:Admission Date: .09-Aug-2017 21:44:00Discharge Date: 31-Dsw-2438Qwpadvhiu Physician at Discharge: Adeola Colon NAdmission Reason: vomiting, hematemesisFinal Discharge Diagnoses: Functional abdominal painProcedures: null Aug 11, 2017Condition at Discharge: SatisfactoryDisposition at Discharge: .HomeVital Signs: T P R BP FxN5Bhaif 36.6 70 18 126/84 98%Date/Time 08/24 8:58 [...] months, but worse recently. She was admitted [facility] last month for the vomiting. She [...] Saturday September 02, 2017 at3:30 pm. Location: [place] [address] Hrhrpa-Up Appointment 02: Physician/Dept/Service: Neurology: Caty Simpson Call to Schedule in: 1st available Scheduled Date/Time: 31-Aug-2017 14:00 Location: [address] [place] [address] Romjaj-Up Appointment 03: Physician/Dept/Service: ENT (ear, nose, and [...] 24-Aug-2017 23:59 by Adeola Colon () [facility] PD ABDOMEN, SINGLE VIEWon PD ABDOMEN, [...] gastric body.Electronically signed by: PHYSICIAN CECILIA [facility] NR MRI BRAIN WOon 08-13-2017 NR [...] Chiari malformation. The study was interpreted at [facility].Electronicall y signed by: SABAS GARCIA MD Normal [facility] Surgical Pathology Depar tmenton 08-11-2017 [facility] Surgical Pathology Department Name PILI PARIKH [...] submitted in toto in one cassette.MXWmxw/08/11/2017 [facility] Comment on above: Performed By: #### T 4FRE ####[facility] [place] [address] AMYLASEon 08-10-2017 Amylase enzyme act/vol 19 U/L Normal 18 - 76 [facility] Comment on above: Performed By: #### V TDOH ####[facility] [place] [address] C-REACTIVE PROTEINon 017 CRP mass conc 0.34 mg/dL [facility] Comment on above: Result Comment: REF VALUE< 1.00 Performed By: #### V TDOH ####[facility] [place] [address] CBC AND DIFFERENTIALon 08-10 % AUTOMATED IMMATURE GRAN 0.3 % Normal 0.0 - 1.0 [facility] Comment on above: Result Comment: Perc ent differential counts (%) should be interpreted in the context of the absolute cell counts (cells/L). Performed By: #### V TDOH ####[facility] [place] [address] % NEUTROPHIL 52.9 % Normal 33.0 - 69.0 [facility] Comment on above: Performed By: #### V TDOH ####[facility] [place] [address] Basophils/100 WBC Auto (Bld) 0.4 % Normal 0.0 - 1.0 [facility] Comment on above: Performed By: #### V TDOH ####[facility] [place] [address] Basophils/100 WBC Auto (Bld) 0.03 x10E9/L Normal 0.00 - 0.10 [facility] Comment on above: Performed By: #### V TDOH ####[facility] [place] [address] Eosinophils Auto #/vol (Bld) 0.29 10*3/uL Normal 0.00 - 0.70 [facility] Comment on above: Performed By: #### V TDOH ####[facility] [place] [address] Eosinophils/100 WBC Auto (Bld) 4.2 % Normal 0.0 - 5.0 [facility] Comment on above: Performed By: #### V TDOH ####[facility] [place] [address] Erythrocyte distribution width Auto Ratio (RBC) 14.1 % Normal 11.5 - 14.5 [facility] Comment on above: Performed By: #### V TDOH ####[facility] [place] [address] Hematocrit Auto Volume Fraction (Bld) 35.4 % Low 36.0 - 46.0 [facility] Comment on above: Performed By: #### V TDOH ####[facility] [place] [address] Hemoglobin mass conc (Bld) 11.0 g/dL Low 12.0 - 16.0 [facility] Comment on above: Performed By: #### V TDOH ####[facility] [place] [address] Lymphocytes Auto #/vol (Bld) 2.33 10*3/uL Normal 1.80 - 4.80 [facility] Comment on above: Performed By: #### V TDOH ####[facility] [place] [address] Lymphocytes/100 WBC Auto (Bld) 33.8 % Normal 28.0 - 48.0 [facility] Comment on above: Performed By: #### V TDOH ####[facility] [place] [address] MCHC Auto mass conc (RBC) 31.1 g/dL Normal 31.0 - 37.0 [facility] Comment on above: Performed By: #### V TDOH ####[facility] [place] [address] MCV Auto Entitic volume (RBC) 80 fL Normal 78 - 102 [facility] Comment on above: Performed By: #### V TDOH ####[facility] [place] [address] Monocytes Auto #/vol (Bld) 0.58 10*3/uL Normal 0.10 - 1.00 [facility] Comment on above: Performed By: #### V TDOH ####[facility] [place] [address] Monocytes/100 WBC Auto (Bld) 8.4 % Normal 3.0 - 9.0 [facility] Comment on above: Performed By: #### V TDOH ####[facility] [place] [address] Neutrophils Auto #/vol (Bld) 3.65 10*3/uL Normal 1.20 - 7.70 [facility] Comment on above: Performed By: #### V TDOH ####[facility] [place] [address] Nucleated RBC/100 WBC Ratio (Bld) 0.0 /100 WBC Normal 0.0-0.0 [facility] Comment on above: Performed By: #### V TDOH ####[facility] [place] [address] Platelets Auto #/vol (Bld) 256 10*3/uL Normal 150 - 400 [facility] Comment on above: Performed By: #### V TDOH ####[facility] [place] [address] RBC Auto #/vol (Bld) 4.40 x10E12/L Normal 4.10 - 5.20 [facility] Comment on above: Performed By: #### V TDOH ####[facility] [place] [address] WBC Auto #/vol (Bld) 6.9 10*3/uL Normal 4.5 - 13.5 [facility] Comment on above: Performed By: #### V TDOH ####[facility] [place] [address] CELIAC DISEASE SEROLOGY PANE Tushar 08-10-2017 GLIADIN ABS, IGA 0 Normal 0 - 14 [facility] Comment on above: Result Comment: Fals e negative Deamidated Gliadin Peptide Antibody, IgA results can occur in patients already adhering to a gluten-free diet or patients with IgA deficiency. Tissue Transglutaminase Antibody, IgA is the preferred test for screening patients with suspected Celiac Disease. Performed By: #### T 4FRE ####[facility] [place] [address] GLIADIN ABS, IGG <1 Normal 0 - 14 [facility] Comment on above: Result Comment: Fals e negative Deamidated Gliadin Peptide Antibody, IgG results can occur in patients already adhering to a gluten-free diet. Tissue Transglutaminase Antibody, IgA is the preferred test for screening patients with suspected Celiac Disease. Performed By: #### T 4FRE ####[facility] [place] [address] TTG AB,IGA <1 Normal 0 - 14 [facility] Comment on above: Result Comment: Loni ac disease is unlikely. False negative Tissue Transglutaminase Antibody, IgA results can occur in approximately 10% of patients with celiac disease, patients already adhering to a gluten-free diet, or patients with IgA deficiency. Performed By: #### T 4FRE ####[facility] [place] [address] TTG AB,IGG <1 Normal 0 - 14 [facility] Comment on above: Result Comment: Fals e negative Tissue Transglutaminase Antibody, IgG results can occur in patients already adhering to a gluten-free diet. Tissue Transglutaminase Antibody, IgA is the preferred test for screening patients with suspected Celiac Disease. Performed By: #### T 4FRE ####[place] [id number] [place] [address] COAGULATION SCREENon 017 aPTT Coag time (Bld) 28 s Normal 25 - 36 [facility] Comment on above: Result Comment: THE APTT IS NO LONGER USED FOR MONITORING UNFRACTIONATED HEPARIN THERAPY. FOR MONITORING HEPARIN THERAPY, USE THE HEPARIN ASSAY. Performed By: #### V TDOH ####[facility] [place] [address] INR Coag RelTime (PPP) 1.1 {INR} Normal 0.9 - 1.1 [facility] Comment on above: Performed By: #### V TDOH ####[facility] [place] [address] Prothrombin time (PT) Coag time (PPP) 12.1 s Normal 9.8 - 12.7 [facility] Comment on above: Performed By: #### V TDOH ####[facility] [place] [address] HEPATIC FUNCTION PANELon ALP enzyme act/vol 128 U/L Normal 52 - 239 [facility] Comment on above: Performed By: #### V TDOH ####[facility] [place] [address] ALT enzyme act/vol 39 U/L High 3 - 28 [facility] Comment on above: Result Comment: Christen ents treated with Sulfasalazine may generate falsely decreased results for ALT. Performed By: #### V TDOH ####[facility] [place] [address] AST enzyme act/vol 27 U/L High 9 - 24 [facility] Comment on above: Performed By: #### V TDOH ####[facility] [place] [address] Bilirubin mass conc 0.4 mg/dL Normal 0.0 - 0.9 [facility] Comment on above: Performed By: #### V TDOH ####[facility] [place] [address] Bilirubin.direct mass conc 0.1 mg/dL Normal 0.0 - 0.3 [facility] Comment on above: Performed By: #### V TDOH ####[facility] [place] [address] Protein mass conc 5.7 g/dL Low 6.2 - 7.7 [facility] Comment on above: Performed By: #### V TDOH ####[facility] [place] [address] LIPASEon 08-10-2017 Lipase enzyme act/vol 16 U/L Normal 9 - 82 [facility] Comment on above: Result Comment: Shanda puncture immediately after or during the administration of Metamizole may lead to falsely low results. Testing should be performed immediately prior to Metamizole dosing. Performed By: #### V TDOH ####[facility] [place] [address] RENAL FUNCTION PANELon 08-10 Albumin mass conc 3.8 g/dL Normal 3.4 - 5.0 [facility] Comment on above: Performed By: #### T 4FRE ####[facility] [place] [address] Performed By: #### V TDOH ####[facility] [place] [address] Anion gap 3 molar conc 13 mmol/L Normal 10 - 30 [facility] Comment on above: Performed By: #### T 4FRE ####[facility] [place] [address] Calcium mass conc 9.2 mg/dL Normal 8.5 - 10.7 [facility] Comment on above: Performed By: #### T 4FRE ####[facility] [place] [address] Chloride molar conc 106 mmol/L Normal 98 - 107 [facility] Comment on above: Performed By: #### T 4FRE ####[facility] [place] [address] Creatinine mass conc 0.56 mg/dL Normal 0.50 - 1.00 [facility] Comment on above: Performed By: #### T 4FRE ####[facility] [place] [address] Glucose mass conc 106 mg/dL High 74 - 99 [facility] Comment on above: Performed By: #### T 4FRE ####[facility] [place] [address] HCO3 molar conc (Bld) 26 mmol/L Normal 18 - 27 [facility] Comment on above: Performed By: #### T 4FRE ####[facility] [place] [address] Phosphate mass conc 4.3 mg/dL Normal 3.0 - 5.4 [facility] Comment on above: Result Comment: The performance characteristics of phosphorus testing in heparinized plasma have been validated by the individual laboratory site where testing is performed. Testing on heparinized plasma is not approved by the FDA; however, such approval is not necessary. Performed By: #### T 4FRE ####[facility] [place] [address] Potassium molar conc 3.9 mmol/L Normal 3.5 - 5.3 [facility] Comment on above: Performed By: #### T 4FRE ####[facility] [place] [address] Sodium molar conc 141 mmol/L Normal 136 - 145 [facility] Comment on above: Performed By: #### T 4FRE ####[facility] [place] [address] Urea nitrogen mass conc 11 mg/dL Normal 6 - 23 [facility] Comment on above: Performed By: #### T 4FRE ####[facility] [place] [address] AMYLASEon 08-09-2017 Amylase enzyme act/vol 22 U/L Normal 18 - 76 [facility] Comment on above: Performed By: #### A MY ####[facility] [place] [address] C-REACTIVE PROTEINon 017 CRP mass conc 0.36 mg/dL Normal [facility] Comment on above: Result Comment: REF VALUE< 1.00 Performed By: #### C RP ####[facility] [place] [address] CBC AND DIFFERENTIALon 08-09 % AUTOMATED IMMATURE GRAN 0.3 % Normal 0.0 - 1.0 [facility] Comment on above: Result Comment: Perc ent differential counts (%) should be interpreted in the context of the absolute cell counts (cells/L). Performed By: #### C BCDF ####[facility] [place] [address] % NEUTROPHIL 60.6 % Normal 33.0 - 69.0 [facility] Comment on above: Performed By: #### C BCDF ####[facility] [place] [address] Basophils/100 WBC Auto (Bld) 0.04 x10E9/L Normal 0.00 - 0.10 [facility] Comment on above: Performed By: #### C BCDF ####[facility] [place] [address] Basophils/100 WBC Auto (Bld) 0.5 % Normal 0.0 - 1.0 [facility] Comment on above: Performed By: #### C BCDF ####[facility] [place] [address] Eosinophils Auto #/vol (Bld) 0.28 10*3/uL Normal 0.00 - 0.70 [facility] Comment on above: Performed By: #### C BCDF ####[facility] [place] [address] Eosinophils/100 WBC Auto (Bld) 3.6 % Normal 0.0 - 5.0 [facility] Comment on above: Performed By: #### C BCDF ####[facility] [place] [address] Erythrocyte distribution width Auto Ratio (RBC) 14.4 % Normal 11.5 - 14.5 [facility] Comment on above: Performed By: #### C BCDF ####[facility] [place] [address] Hematocrit Auto Volume Fraction (Bld) 37.7 % Normal 36.0 - 46.0 [facility] Comment on above: Performed By: #### C BCDF ####[facility] [place] [address] Hemoglobin mass conc (Bld) 11.5 g/dL Low 12.0 - 16.0 [facility] Comment on above: Performed By: #### C BCDF ####[facility] [place] [address] Lymphocytes Auto #/vol (Bld) 2.20 10*3/uL Normal 1.80 - 4.80 [facility] Comment on above: Performed By: #### C BCDF ####[facility] [place] [address] Lymphocytes/100 WBC Auto (Bld) 28.2 % Normal 28.0 - 48.0 [facility] Comment on above: Performed By: #### C BCDF ####[facility] [place] [address] MCHC Auto mass conc (RBC) 30.5 g/dL Low 31.0 - 37.0 [facility] Comment on above: Performed By: #### C BCDF ####[facility] [place] [address] MCV Auto Entitic volume (RBC) 82 fL Normal 78 - 102 [facility] Comment on above: Performed By: #### C BCDF ####[facility] [place] [address] Monocytes Auto #/vol (Bld) 0.53 10*3/uL Normal 0.10 - 1.00 [facility] Comment on above: Performed By: #### C BCDF ####[facility] [place] [address] Monocytes/100 WBC Auto (Bld) 6.8 % Normal 3.0 - 9.0 [facility] Comment on above: Performed By: #### C BCDF ####[facility] [place] [address] Neutrophils Auto #/vol (Bld) 4.73 10*3/uL Normal 1.20 - 7.70 [facility] Comment on above: Performed By: #### C BCDF ####[facility] [place] [address] Nucleated RBC/100 WBC Ratio (Bld) 0.0 /100 WBC Normal 0.0-0.0 [facility] Comment on above: Performed By: #### C BCDF ####[facility] [place] [address] Platelets Auto #/vol (Bld) 290 10*3/uL Normal 150 - 400 [facility] Comment on above: Performed By: #### C BCDF ####[facility] [place] [address] RBC Auto #/vol (Bld) 4.62 x10E12/L Normal 4.10 - 5.20 [facility] Comment on above: Performed By: #### C BCDF ####[facility] [place] [address] WBC Auto #/vol (Bld) 7.8 10*3/uL Normal 4.5 - 13.5 [facility] Comment on above: Performed By: #### C BCDF ####[facility] [place] [address] COAGULATION SCREENon 017 aPTT Coag time (Bld) 29 s Normal 25 - 36 [facility] Comment on above: Result Comment: THE APTT IS NO LONGER USED FOR MONITORING UNFRACTIONATED HEPARIN THERAPY. FOR MONITORING HEPARIN THERAPY, USE THE HEPARIN ASSAY. Performed By: #### V TDOH ####[facility] [place] [address] INR Coag RelTime (PPP) 1.2 {INR} High 0.9 - 1.1 [facility] Comment on above: Performed By: #### V TDOH ####[place] [id number] [place] [address] Prothrombin time (PT) Coag time (PPP) 12.9 s High 9.8 - 12.7 [facility] Comment on above: Performed By: #### V TDOH ####[facility] [place] [address] ESR-WESTERGRENon 08-09-2017 ESR-WESTERGREN 8 mm/h Normal 0 - 13 [facility] Comment on above: Performed By: #### V TDOH ####[facility] [place] [address] GGTon 08-09-2017 GGT 20 U/L Normal 5 - 20 [facility] Comment on above: Performed By: #### G GT ####[facility] [place] [address] HEMOGLOBIN A1Con 08-09-2017 Hemoglobin A1c/Hemoglobin.total mass fraction (Bld) 5.6 % Normal [facility] Comment on above: Result Comment: Diag nosis of Diabetes-Adults Non-Diabetic: < or = 5.6% Increased risk for developing diabetes: 5.7-6.4% Diagnostic of diabetes: > or = 6.5%. Monitoring of Diabetes Age (y) Therapeutic Goal (%) Adults: >18 <7.0 Pediatrics: 13-18 <7.5 7-12 <8.0 0- 6 7.5-8.5 [employer]. Diabetes Care 33(S1), Nov 2009. Performed By: #### V TDOH ####[facility] [place] [address] HEPATIC FUNCTION PANELon ALP enzyme act/vol 133 U/L Normal 52 - 239 [facility] Comment on above: Performed By: #### H EPFP ####[facility] [place] [address] ALT enzyme act/vol 41 U/L High 3 - 28 [facility] Comment on above: Result Comment: Christen ents treated with Sulfasalazine may generate falsely decreased results for ALT. Performed By: #### H EPFP ####[facility] [place] [address] AST enzyme act/vol 25 U/L High 9 - 24 [facility] Comment on above: Performed By: #### H EPFP ####[facility] [place] [address] Bilirubin mass conc 0.3 mg/dL Normal 0.0 - 0.9 [facility] Comment on above: Performed By: #### H EPFP ####[facility] [place] [address] Bilirubin.direct mass conc 0.1 mg/dL Normal 0.0 - 0.3 [facility] Comment on above: Performed By: #### H EPFP ####[facility] [place] [address] Protein mass conc 6.7 g/dL Normal 6.2 - 7.7 [facility] Comment on above: Performed By: #### H EPFP ####[facility] [place] [address] IRON + TIBCon 08-09-2017 % SATURATION 13 % Low 25 - 45 [facility] Comment on above: Performed By: #### I RONT ####[facility] [place] [address] Iron mass conc 53 ug/dL Normal 23 - 138 [facility] Comment on above: Performed By: #### I RONT ####[facility] [place] [address] TIBC 407 ug/dL Normal 240 - 445 [facility] Comment on above: Performed By: #### I RONT ####[facility] [place] [address] LIPASEon 08-09-2017 Lipase enzyme act/vol 17 U/L Normal 9 - 82 [facility] Comment on above: Result Comment: Shanda puncture immediately after or during the administration of Metamizole may lead to falsely low results. Testing should be performed immediately prior to Metamizole dosing. Performed By: #### L IPAS ####[facility] [place] [address] RENAL FUNCTION PANELon 08-09 Albumin mass conc 4.3 g/dL Normal 3.4 - 5.0 [facility] Comment on above: Performed By: #### V TDOH ####[facility] [place] [address] Performed By: #### H EPFP ####[facility] [place] [address] Anion gap 3 molar conc 13 mmol/L Normal 10 - 30 [facility] Comment on above: Performed By: #### V TDOH ####[facility] [place] [address] Calcium mass conc 9.5 mg/dL Normal 8.5 - 10.7 [facility] Comment on above: Performed By: #### V TDOH ####[facility] [place] [address] Chloride molar conc 105 mmol/L Normal 98 - 107 [facility] Comment on above: Performed By: #### V TDOH ####[facility] [place] [address] Creatinine mass conc 0.50 mg/dL Normal 0.50 - 1.00 [facility] Comment on above: Performed By: #### V TDOH ####[facility] [place] [address] Glucose mass conc 83 mg/dL Normal 74 - 99 [facility] Comment on above: Performed By: #### V TDOH ####[facility] [place] [address] HCO3 molar conc (Bld) 27 mmol/L Normal 18 - 27 [facility] Comment on above: Performed By: #### V TDOH ####[facility] [place] [address] Phosphate mass conc 4.1 mg/dL Normal 3.0 - 5.4 [facility] Comment on above: Result Comment: The performance characteristics of phosphorus testing in heparinized plasma have been validated by the individual laboratory site where testing is performed. Testing on heparinized plasma is not approved by the FDA; however, such approval is not necessary. Performed By: #### V TDOH ####[facility] [place] [address] Potassium molar conc 4.1 mmol/L Normal 3.5 - 5.3 [facility] Comment on above: Performed By: #### V TDOH ####[facility] [place] [address] Sodium molar conc 141 mmol/L Normal 136 - 145 [facility] Comment on above: Performed By: #### V TDOH ####[facility] [place] [address] Urea nitrogen mass conc 11 mg/dL Normal 6 - 23 [facility] Comment on above: Performed By: #### V TDOH ####[facility] [place] [address] THYROXINE,FREEon 08-09-2017 THYROXINE,FREE 1.08 ng/dL Normal 0.78 - 1.48 [facility] Comment on above: Result Comment: Thyr oxine Free testing is performed using different testing methodology at [facility] than at other [facility]. Direct result comparisons should only be made within the same method.. Patients receiving more than 5 mg/day of biotin may have interference in test results. A sample should be taken no sooner than eight hours after previous dose. Contact [phone] for additional information. Performed By: #### T 4FRE ####[facility] [id number] TSHon 08-09-2017 Thyrotropin Qn 1.71 m[IU]/L Normal 0.44 - 3.98 [facility] Comment on above: Result Comment: TSH testing is performed using different testing methodology at [facility] than at other [facility]. Direct result comparisons should only be made within the same method.. Patients receiving more than 5 mg/day of biotin may have interference in test results. A sample should be taken no sooner than eight hours after previous dose. Contact [phone] for additional information. Performed By: #### T SH2 ####[facility] [place] [address] VITAMIN D, 25-HYDROXYon 07-29 VITAMIN D, 25-HYDROXY 28 ng/mL Abnormal [facility] Comment on above: Result Comment: .DEF ICIENCY: < 20 NG/MLINSUFFICIENCY: 20-29 NG/MLOPTIMUM LEVEL: 30-80 NG/MLPOSSIBLE TOXICITY: > 80 NG/MLTHIS ASSAY ACCURATELY QUANTIFIES THE SUM OFVITAMIN D3, 25-HYDROXY AND VIT D2,25-HYDROXY. Performed By: #### V TDOH ####[facility] [place] [address] Vital Signs Date Time Vital Sign Value Performing Clinician Facility 01-16-2025 20:30-0500 Heart rate 51 /min [facility] 01-16-2025 20:30-0500 Respiratory rate 12 /min [facility] 01-16-2025 20:30-0500 SaO2% (BldA) [Mass fraction] 98 % [facility] 01-16-2025 19:30-0500 Diastolic blood pressure 105 mm[Hg] [facility] 01-16-2025 19:30-0500 Heart rate 48 /min [facility] 01-16-2025 19:30-0500 Mean blood pressure 115 mm[Hg] [facility] 01-16-2025 19:30-0500 Respiratory rate 13 /min [facility] 01-16-2025 19:30-0500 SaO2% (BldA) [Mass fraction] 98 % [facility] 01-16-2025 19:30-0500 Systolic blood pressure 135 mm[Hg] [facility] 01-16-2025 17:53-0500 Body temperature 99.14 [degF] [facility] 01-16-2025 17:53-0500 Diastolic blood pressure 71 mm[Hg] [facility] 01-16-2025 17:53-0500 Heart rate 64 /min [facility] 01-16-2025 17:53-0500 Respiratory rate 20 /min [facility] 01-16-2025 17:53-0500 SaO2% (BldA) [Mass fraction] 100 % [facility] 01-16-2025 17:53-0500 Systolic blood pressure 129 mm[Hg] [facility] 10-29-2024 00:01-0500 Diastolic blood pressure 94 mm[Hg] [facility] Work Phone[facility] 10-29-2024 00:01-0500 Heart rate 72 /min [facility] Work Phone: [facility] 10-29-2024 00:01-0500 Respiratory rate 16 /min [facility] Work Phone: [facility] 10-29-2024 00:01-0500 SaO2% (BldA) [Mass fraction] 99 % [facility] Work Phone: [facility] 10-29-2024 00:01-0500 Systolic blood pressure 156 mm[Hg] [facility] Work Phone: [facility] 10-28-2024 18:07-0500 Body height 157.48 cm [facility] Work Phone: [facility] 10-28-2024 18:07-0500 Body temperature 98.6 [degF] [facility] Work Phone: [facility] 10-28-2024 18:07-0500 Body weight 92.85 kg [facility] Work Phone: [facility] 08-03-2024 23:10-0400 Diastolic blood pressure 68 mm[Hg] [facility] Work Phone: [facility] 08-03-2024 23:10-0400 Heart rate 95 /min [facility] Work Phone: [facility] 08-03-2024 23:10-0400 Respiratory rate 18 /min [facility] Work Phone: [facility] 08-03-2024 23:10-0400 SaO2% (BldA) [Mass fraction] 99 % [facility] Work Phone: [facility] 08-03-2024 23:10-0400 Systolic blood pressure 115 mm[Hg] [facility] Work Phone: [facility] 08-03-2024 20:35-0400 Body height 157.48 cm [facility] Work Phone: [facility] 08-03-2024 20:35-0400 Body temperature 99.1 [degF] [facility] Work Phone: [facility] 08-03-2024 20:35-0400 Body weight 90.71 kg [facility] Work Phone: [facility] 07-30-2024 22:55-0400 Diastolic blood pressure 72 mm[Hg] Cresencio Colten [facility] 07-30-2024 22:55-0400 Heart rate 50 /min Cresencio Colten [facility] 07-30-2024 22:55-0400 Mean blood pressure 83 mm[Hg] Cresencio Colten [facility] 07-30-2024 22:55-0400 Respiratory rate 16 /min Cresencio Colten [facility] 07-30-2024 22:55-0400 SaO2% (BldA) [Mass fraction] 98 % Cresencio Colten [facility] 07-30-2024 22:55-0400 Systolic blood pressure 104 mm[Hg] Cresencio Colten [facility] 07-30-2024 19:28-0400 Body temperature 98.06 [degF] Cresencio Colten [facility] 07-30-2024 19:28-0400 Diastolic blood pressure 76 mm[Hg] Cresencio Colten [facility] 07-30-2024 19:28-0400 Heart rate 55 /min Cresencio Colten [facility] 07-30-2024 19:28-0400 Respiratory rate 16 /min Cresencio Colten [facility] 07-30-2024 19:28-0400 SaO2% (BldA) [Mass fraction] 97 % Cresencio Colten [facility] 07-30-2024 19:28-0400 Systolic blood pressure 118 mm[Hg] Cresencio Colten [facility] 03-19-2024 00:10-0400 Diastolic blood pressure 90 mm[Hg] [facility] Work Phone: [facility] 03-19-2024 00:10-0400 Heart rate 110 /min [facility] Work Phone: [facility] 03-19-2024 00:10-0400 Respiratory rate 18 /min [facility] Work Phone: [facility] 03-19-2024 00:10-0400 SaO2% (BldA) [Mass fraction] 100 % [facility] Work Phone: [facility] 03-19-2024 00:10-0400 Systolic blood pressure 144 mm[Hg] [facility] Work Phone: [facility] 03-18-2024 22:03-0400 Body height 160.02 cm [facility] Work Phone: [facility] 03-18-2024 22:03-0400 Body temperature 98.3 [degF] [facility] Work Phone: [facility] 03-18-2024 22:03-0400 Body weight 92.2 kg [facility] Work Phone: [facility] 03-15-2024 13:43-0400 Diastolic blood pressure 89 mm[Hg] [facility] 03-15-2024 13:43-0400 Heart rate 51 /min [facility] 03-15-2024 13:43-0400 Mean blood pressure 107 mm[Hg] [facility] 03-15-2024 13:43-0400 Respiratory rate 16 /min [facility] 03-15-2024 13:43-0400 SaO2% (BldA) [Mass fraction] 100 % [facility] 03-15-2024 13:43-0400 Systolic blood pressure 144 mm[Hg] [facility] 03-15-2024 12:01-0400 Diastolic blood pressure 87 mm[Hg] [facility] 03-15-2024 12:01-0400 Heart rate 52 /min [facility] 03-15-2024 12:01-0400 Mean blood pressure 107 mm[Hg] [facility] 03-15-2024 12:01-0400 SaO2% (BldA) [Mass fraction] 100 % [facility] 03-15-2024 12:01-0400 Systolic blood pressure 148 mm[Hg] [facility] 03-15-2024 10:35-0400 Body temperature 97.52 [degF] [facility] 03-15-2024 10:35-0400 Diastolic blood pressure 86 mm[Hg] [facility] 03-15-2024 10:35-0400 Heart rate 60 /min [facility] 03-15-2024 10:35-0400 Respiratory rate 18 /min [facility] 03-15-2024 10:35-0400 SaO2% (BldA) [Mass fraction] 98 % [facility] 03-15-2024 10:35-0400 Systolic blood pressure 143 mm[Hg] [facility] 03-13-2024 22:00-0400 Diastolic blood pressure 105 mm[Hg] Femi Roman [facility] 03-13-2024 22:00-0400 Heart rate 53 /min Femi Roman [facility] 03-13-2024 22:00-0400 Mean blood pressure 117 mm[Hg] Femi Roman [facility] 03-13-2024 22:00-0400 SaO2% (BldA) [Mass fraction] 100 % Femi Roman [facility] 03-13-2024 22:00-0400 Systolic blood pressure 140 mm[Hg] Femi Jessie [facility] 03-13-2024 21:00-0400 Diastolic blood pressure 106 mm[Hg] Femi Jessie [facility] 03-13-2024 21:00-0400 Heart rate 93 /min Femi Jessie [facility] 03-13-2024 21:00-0400 Mean blood pressure 119 mm[Hg] Femi Jessie [facility] 03-13-2024 21:00-0400 Respiratory rate 21 /min Femi Jessie [facility] 03-13-2024 21:00-0400 SaO2% (BldA) [Mass fraction] 98 % Femi Jessie [facility] 03-13-2024 21:00-0400 Systolic blood pressure 144 mm[Hg] Femi Jessie [facility] 03-13-2024 20:00-0400 Diastolic blood pressure 103 mm[Hg] Femi Jessie [facility] 03-13-2024 20:00-0400 Heart rate 50 /min Femi Jessie [facility] 03-13-2024 20:00-0400 Mean blood pressure 120 mm[Hg] Femi Jessie [facility] 03-13-2024 20:00-0400 Systolic blood pressure 153 mm[Hg] Femi Jessie [facility] 03-13-2024 19:38-0400 Respiratory rate 14 /min Femi Jessie [facility] 03-13-2024 18:36-0400 Respiratory rate 18 /min Femi Jessie [facility] 03-13-2024 17:51-0400 Body temperature 98.24 [degF] Femi Roman [facility] 03-13-2024 17:36-0400 Body temperature 98.24 [degF] Femi Roman [facility] 03-13-2024 17:36-0400 Heart rate 61 /min Femi Roman [facility] 03-13-2024 17:36-0400 Respiratory rate 18 /min Femi Roman [facility] 07-31-2023 18:09-0400 Body height 157.48 cm [facility] Work Phone: [facility] 07-31-2023 18:09-0400 Body temperature 98.6 [degF] [facility] Work Phone: [facility] 07-31-2023 18:09-0400 Body weight 84 kg [facility] Work Phone: [facility] 07-31-2023 18:09-0400 Diastolic blood pressure 106 mm[Hg] [facility] Work Phone: [facility] 07-31-2023 18:09-0400 Heart rate 87 /min [facility] Work Phone: [facility] 07-31-2023 18:09-0400 Respiratory rate 18 /min [facility] Work Phone: [facility] 07-31-2023 18:09-0400 SaO2% (BldA) [Mass fraction] 98 % [facility] Work Phone: [facility] 07-31-2023 18:09-0400 Systolic blood pressure 150 mm[Hg] [facility] Work Phone: [facility] 05-25-2023 13:11-0400 Diastolic blood pressure 96 mm[Hg] [facility] Work Phone: [facility] 05-25-2023 13:11-0400 Heart rate 60 /min [facility] [employer] Work Phone: [facility] 05-25-2023 13:11-0400 Respiratory rate 16 /min [facility] Work Phone: [facility] 05-25-2023 13:11-0400 SaO2% (BldA) [Mass fraction] 97 % [facility] [employer] Work Phone: [facility] 05-25-2023 13:11-0400 Systolic blood pressure 160 mm[Hg] [facility] Work Phone: [facility] 05-25-2023 11:56-0400 Inhaled oxygen flow rate 6 L/min [facility] [employer] Work Phone: [facility] 05-25-2023 11:54-0400 Body temperature 97.2 [degF] [facility] [employer] Work Phone: [facility] 05-25-2023 09:39-0400 Body height 160.02 cm [facility] Work Phone: [facility] 05-25-2023 09:39-0400 Body mass index (BMI) [Percentile] Per age and sex 96.6 % [facility] [employer] Work Phone: [facility] 05-25-2023 09:39-0400 Body mass index (BMI) [Ratio] 33.6 kg/m2 [facility] [employer] Work Phone: [facility] 05-25-2023 09:39-0400 Body weight 86.18 kg [facility] [employer] Work Phone: [facility] 05-23-2023 08:00-0400 Body height 157.48 cm Colten Miller Other [employer] Other 05-23-2023 08:00-0400 Body mass index (BMI) [Ratio] 34.75 kg/m2 Colten Miller Other [employer] Other 05-23-2023 08:00-0400 Body weight 86.18 kg Colten Miller Other [facility] [employer] Other 01-07-2023 14:08-0500 Body height 157.48 cm [facility] [employer] Work Phone: [facility] 01-07-2023 12:34-0500 Body temperature 98.1 [degF] Services [facility] Work Phone: [facility] 01-07-2023 12:34-0500 Diastolic blood pressure 86 mm[Hg] Services [facility] [employer] Work Phone: [facility] 01-07-2023 12:34-0500 Heart rate 75 /min [facility] [employer] Work Phone: [facility] 01-07-2023 12:34-0500 SaO2% (BldA) [Mass fraction] 100 % [facility] Work Phone: [facility] 01-07-2023 12:34-0500 Systolic blood pressure 147 mm[Hg] Services [facility] [employer] Work Phone: [facility] 01-07-2023 11:57-0500 Respiratory rate 18 /min [facility] [employer] Work Phone: [facility] 01-07-2023 06:00-0500 Body weight 78.2 kg [facility] Work Phone: [facility] 01-06-2023 18:29-0500 Diastolic blood pressure 82 mm[Hg] Services [facility] Work Phone: [facility] 01-06-2023 18:29-0500 Heart rate 64 /min [facility] [employer] Work Phone: [facility] 01-06-2023 18:29-0500 Respiratory rate 16 /min [facility] Work Phone: [facility] 01-06-2023 18:29-0500 SaO2% (BldA) [Mass fraction] 98 % [facility] Work Phone: [facility] 01-06-2023 18:29-0500 Systolic blood pressure 139 mm[Hg] [facility] Work Phone: [facility] 01-06-2023 11:12-0500 Body height 157.48 cm [facility] Work Phone: [facility] 01-06-2023 11:12-0500 Body temperature 98 [degF] [facility] Work Phone: [facility] 01-06-2023 11:12-0500 Body weight 77.11 kg [facility] Work Phone: [facility] 01-02-2023 04:00-0500 Heart rate 62 /min [facility] Work Phone: [facility] 01-02-2023 04:00-0500 Respiratory rate 18 /min [facility] Work Phone: [facility] 01-02-2023 04:00-0500 SaO2% (BldA) [Mass fraction] 100 % [facility] Work Phone: [facility] 01-02-2023 02:37-0500 Diastolic blood pressure 85 mm[Hg] Services [facility] Work Phone: [facility] 01-02-2023 02:37-0500 Systolic blood pressure 155 mm[Hg] [facility] Work Phone: [facility] 01-02-2023 01:14-0500 Body height 157.48 cm [facility] Work Phone: [facility] 01-02-2023 01:14-0500 Body temperature 98 [degF] [facility] Work Phone: [facility] 01-02-2023 01:14-0500 Body weight 77.11 kg [facility] Work Phone: [facility] 12-31-2022 12:11-0500 Heart rate 70 /min [facility] Work Phone: [facility] 12-31-2022 12:08-0500 Body height 157.48 cm [facility] Work Phone: [facility] 12-31-2022 12:08-0500 Body temperature 97.7 [degF] [facility] Work Phone: [facility] 12-31-2022 12:08-0500 Body weight 79 kg [facility] [facility] Work Phone: [facility] 12-31-2022 12:08-0500 Diastolic blood pressure 87 mm[Hg] [facility] [facility] Work Phone: [facility] 12-31-2022 12:08-0500 Respiratory rate 18 /min [facility] Work Phone: [facility] 12-31-2022 12:08-0500 SaO2% (BldA) [Mass fraction] 99 % [facility] Work Phone: [facility] 12-31-2022 12:08-0500 Systolic blood pressure 134 mm[Hg] Services [facility] Work Phone: [facility] 11-09-2022 15:15-0500 Body height 157.48 cm [facility] Work Phone: [facility] 11-09-2022 15:15-0500 Body temperature 98.4 [degF] [facility] Work Phone: [facility] 11-09-2022 15:15-0500 Body weight 81.64 kg [facility] Work Phone: [facility] 11-09-2022 15:15-0500 Diastolic blood pressure 90 mm[Hg] Services [facility] Work Phone: [facility] 11-09-2022 15:15-0500 Heart rate 95 /min [facility] Work Phone: [facility] 11-09-2022 15:15-0500 Respiratory rate 16 /min [facility] Work Phone: [facility] 11-09-2022 15:15-0500 SaO2% (BldA) [Mass fraction] 100 % [facility] Work Phone: [facility] 11-09-2022 15:15-0500 Systolic blood pressure 140 mm[Hg] [facility] Work Phone: [facility] 11-07-2022 13:40-0500 Diastolic blood pressure 85 mm[Hg] [facility] Work Phone: [facility] 11-07-2022 13:40-0500 Heart rate 68 /min [facility] Work Phone: [facility] 11-07-2022 13:40-0500 Respiratory rate 16 /min [facility] Work Phone: [facility] 11-07-2022 13:40-0500 SaO2% (BldA) [Mass fraction] 100 % [facility] Work Phone: [facility] 11-07-2022 13:40-0500 Systolic blood pressure 119 mm[Hg] [facility] Work Phone: [facility] 11-07-2022 11:05-0500 Body temperature 98.2 [degF] [facility] Work Phone: [facility] 11-07-2022 11:04-0500 Body height 158.75 cm [facility] Work Phone: [facility] 11-07-2022 11:04-0500 Body weight 77 kg [facility] Work Phone: [facility] 11-02-2022 09:53-0500 Diastolic blood pressure 89 mm[Hg] [facility] Work Phone: [facility] 11-02-2022 09:53-0500 Heart rate 50 /min [facility] Work Phone: [facility] 11-02-2022 09:53-0500 Respiratory rate 18 /min [facility] Work Phone: [facility] 11-02-2022 09:53-0500 SaO2% (BldA) [Mass fraction] 98 % [facility] Work Phone: [facility] 11-02-2022 09:53-0500 Systolic blood pressure 156 mm[Hg] [facility] Work Phone: [facility] 11-02-2022 03:00-0500 Body height 157.48 cm Services [facility] Work Phone: [facility] 11-02-2022 03:00-0500 Body temperature 98.4 [degF] [facility] Work Phone: [facility] 11-02-2022 03:00-0500 Body weight 78 kg [facility] Work Phone: [facility] 10-31-2022 10:05-0500 Diastolic blood pressure 85 mm[Hg] [facility] Work Phone: [facility] 10-31-2022 10:05-0500 Heart rate 59 /min [facility] Work Phone: [facility] 10-31-2022 10:05-0500 Respiratory rate 18 /min [facility] Work Phone: [facility] 10-31-2022 10:05-0500 SaO2% (BldA) [Mass fraction] 98 % [facility] Work Phone: [facility] 10-31-2022 10:05-0500 Systolic blood pressure 137 mm[Hg] [facility] Work Phone: [facility] 10-31-2022 08:50-0500 Body height 157.48 cm Services [facility] Work Phone: [facility] 10-31-2022 08:50-0500 Body temperature 98.2 [degF] [facility] Work Phone: [facility] 10-31-2022 08:50-0500 Body weight 83.91 kg [facility] Work Phone: [facility] 10-29-2022 12:01-0500 Body height 157.48 cm [facility] Work Phone: [facility] 10-29-2022 12:01-0500 Body temperature 97.8 [degF] [facility] Work Phone: [facility] 10-29-2022 12:01-0500 Body weight 81 kg [facility] Work Phone: [facility] 10-29-2022 12:01-0500 Diastolic blood pressure 84 mm[Hg] [facility] Work Phone: [facility] 10-29-2022 12:01-0500 Heart rate 60 /min [facility] Work Phone: [facility] 10-29-2022 12:01-0500 Respiratory rate 18 /min [facility] Work Phone: [facility] 10-29-2022 12:01-0500 SaO2% (BldA) [Mass fraction] 99 % [facility] Work Phone: [facility] 10-29-2022 12:01-0500 Systolic blood pressure 109 mm[Hg] [facility] Work Phone: [facility] 08-22-2022 12:00-0400 Body temperature 98 [degF] [facility] Work Phone: [facility] 08-22-2022 12:00-0400 Diastolic blood pressure 78 mm[Hg] [facility] Work Phone: [facility] 08-22-2022 12:00-0400 Heart rate 80 /min [facility] Work Phone: [facility] 08-22-2022 12:00-0400 Respiratory rate 18 /min [facility] Work Phone: [facility] 08-22-2022 12:00-0400 SaO2% (BldA) [Mass fraction] 95 % [facility] Work Phone: [facility] 08-22-2022 12:00-0400 Systolic blood pressure 121 mm[Hg] [facility] Work Phone: [facility] 08-22-2022 05:50-0400 Body weight 77.5 kg [facility] Work Phone: [facility] 08-21-2022 11:27-0400 Body height 157.48 cm [facility] Work Phone: [facility] 08-20-2022 16:34-0400 Diastolic blood pressure 90 mm[Hg] [facility] Work Phone: [facility] 08-20-2022 16:34-0400 Heart rate 68 /min [facility] Work Phone: [facility] 08-20-2022 16:34-0400 Respiratory rate 20 /min [facility] Work Phone: [facility] 08-20-2022 16:34-0400 SaO2% (BldA) [Mass fraction] 96 % [facility] Work Phone: [facility] 08-20-2022 16:34-0400 Systolic blood pressure 142 mm[Hg] [facility] Work Phone: [facility] 08-20-2022 11:58-0400 Body height 157.48 cm [facility] Work Phone: [facility] 08-20-2022 11:58-0400 Body temperature 97.9 [degF] [facility] Work Phone: [facility] 08-20-2022 11:58-0400 Body weight 79.37 kg [facility] Work Phone: [facility] 08-20-2022 01:00-0400 Body temperature 97.9 [degF] [facility] Work Phone: [facility] 08-20-2022 01:00-0400 Diastolic blood pressure 72 mm[Hg] [facility] Work Phone: [facility] 08-20-2022 01:00-0400 Heart rate 53 /min [facility] Work Phone: [facility] 08-20-2022 01:00-0400 Respiratory rate 16 /min [facility] Work Phone: [facility] 08-20-2022 01:00-0400 SaO2% (BldA) [Mass fraction] 97 % [facility] Work Phone: [facility] 08-20-2022 01:00-0400 Systolic blood pressure 131 mm[Hg] [facility] Work Phone: [facility] 08-19-2022 18:57-0400 Body height 157.48 cm [facility] Work Phone: [facility] 08-19-2022 18:57-0400 Body weight 79.37 kg [facility] Work Phone: [facility] 08-19-2022 14:00-0400 Diastolic blood pressure 79 mm[Hg] [facility] Work Phone: [facility] 08-19-2022 14:00-0400 Heart rate 67 /min [facility] Work Phone: [facility] 08-19-2022 14:00-0400 Respiratory rate 20 /min [facility] Work Phone: [facility] 08-19-2022 14:00-0400 SaO2% (BldA) [Mass fraction] 99 % [facility] Work Phone: [facility] 08-19-2022 14:00-0400 Systolic blood pressure 139 mm[Hg] [facility] Work Phone: [facility] 08-19-2022 00:40-0400 Body height 157.48 cm [facility] Work Phone: [facility] 08-19-2022 00:40-0400 Body temperature 98.8 [degF] [facility] Work Phone: [facility] 08-19-2022 00:40-0400 Body weight 77.11 kg [facility] Work Phone: [facility] 08-18-2022 15:28-0400 Body temperature 97.8 [degF] [facility] Work Phone: [facility] 08-18-2022 15:28-0400 Diastolic blood pressure 90 mm[Hg] [facility] Work Phone: [facility] 08-18-2022 15:28-0400 Heart rate 54 /min [facility] Work Phone: [facility] 08-18-2022 15:28-0400 Respiratory rate 20 /min [facility] Work Phone: [facility] 08-18-2022 15:28-0400 SaO2% (BldA) [Mass fraction] 100 % [facility] Work Phone: [facility] 08-18-2022 15:28-0400 Systolic blood pressure 135 mm[Hg] [facility] Work Phone: [facility] 08-18-2022 12:26-0400 Body height 157.48 cm [facility] Work Phone: [facility] 08-18-2022 12:26-0400 Body weight 77.11 kg [facility] Work Phone: [facility] 06-09-2022 10:25-0400 Diastolic blood pressure 51 mm[Hg] [facility] Work Phone: [facility] 06-09-2022 10:25-0400 Heart rate 83 /min [facility] Work Phone: [facility] 06-09-2022 10:25-0400 Respiratory rate 20 /min [facility] Work Phone: [facility] 06-09-2022 10:25-0400 SaO2% (BldA) [Mass fraction] 98 % [facility] [employer] Work Phone: [facility] 06-09-2022 10:25-0400 Systolic blood pressure 92 mm[Hg] [facility] Work Phone: [facility] 06-09-2022 08:46-0400 Body height 157.48 cm Services [facility] Work Phone: [facility] 06-09-2022 08:46-0400 Body mass index (BMI) [Percentile] Per age and sex 96.2 % [facility] [employer] Work Phone: [facility] 06-09-2022 08:46-0400 Body mass index (BMI) [Ratio] 32 kg/m2 [facility] [employer] Work Phone: [facility] 06-09-2022 08:46-0400 Body temperature 97.4 [degF] [facility] Work Phone: [facility] 06-09-2022 08:46-0400 Body weight 79.37 kg [facility] [employer] Work Phone: [facility] 05-16-2022 13:52-0400 Diastolic blood pressure 96 mm[Hg] [facility] [employer] Work Phone: [facility] 05-16-2022 13:52-0400 Heart rate 66 /min [facility] [employer] Work Phone: [facility] 05-16-2022 13:52-0400 Respiratory rate 18 /min [facility] [employer] Work Phone: [facility] 05-16-2022 13:52-0400 SaO2% (BldA) [Mass fraction] 100 % [facility] [employer] Work Phone: [facility] 05-16-2022 13:52-0400 Systolic blood pressure 138 mm[Hg] [facility] Work Phone: [facility] 05-16-2022 11:54-0400 Body height 157.48 cm [facility] [employer] Work Phone: [facility] 05-16-2022 11:54-0400 Body mass index (BMI) [Percentile] Per age and sex 95.5 % [facility] [employer] Work Phone: [facility] 05-16-2022 11:54-0400 Body mass index (BMI) [Ratio] 31.1 kg/m2 [facility] [employer] Work Phone: [facility] 05-16-2022 11:54-0400 Body temperature 98.4 [degF] [facility] [employer] Work Phone: [facility] 05-16-2022 11:54-0400 Body weight 77.11 kg [facility] [employer] Work Phone: [facility] 05-15-2022 15:30-0400 Diastolic blood pressure 82 mm[Hg] [facility] [employer] Work Phone: [facility] 05-15-2022 15:30-0400 Heart rate 52 /min [facility] [employer] Work Phone: [facility] 05-15-2022 15:30-0400 Respiratory rate 14 /min [facility] Work Phone: [facility] 05-15-2022 15:30-0400 SaO2% (BldA) [Mass fraction] 99 % [facility] [employer] Work Phone: [facility] 05-15-2022 15:30-0400 Systolic blood pressure 134 mm[Hg] [facility] [employer] Work Phone: [facility] 05-15-2022 12:28-0400 Body height 157.48 cm [facility] [employer] Work Phone: [facility] 05-15-2022 12:28-0400 Body mass index (BMI) [Percentile] Per age and sex 95.5 % [facility] [employer] Work Phone: [facility] 05-15-2022 12:28-0400 Body mass index (BMI) [Ratio] 31 kg/m2 [facility] Work Phone: [facility] 05-15-2022 12:28-0400 Body temperature 98.1 [degF] [facility] Work Phone: [facility] 05-15-2022 12:28-0400 Body weight 77 kg Services [facility] Work Phone: [facility] 05-14-2022 22:56-0400 Body temperature 98.1 [degF] [facility] Work Phone: [facility] 05-14-2022 22:56-0400 Diastolic blood pressure 74 mm[Hg] [facility] [employer] Work Phone: [facility] 05-14-2022 22:56-0400 Heart rate 18 /min Services [facility] Work Phone: [facility] 05-14-2022 22:56-0400 Respiratory rate 18 /min Services [facility] Work Phone: [facility] 05-14-2022 22:56-0400 SaO2% (BldA) [Mass fraction] 94 % [facility] [employer] Work Phone: [facility] 05-14-2022 22:56-0400 Systolic blood pressure 137 mm[Hg] [facility] [employer] Work Phone: [facility] [facility] 05-14-2022 02:18-0400 Body height 157.48 cm Services [facility] Work Phone: [facility] 05-14-2022 02:18-0400 Body mass index (BMI) [Percentile] Per age and sex 95.5 % [facility] [employer] Work Phone: [facility] 05-14-2022 02:18-0400 Body mass index (BMI) [Ratio] 31.1 kg/m2 [facility] [employer] Work Phone: [facility] 05-14-2022 02:18-0400 Body temperature 97.9 [degF] [facility] Work Phone: [facility] 05-14-2022 02:18-0400 Body weight 77.11 kg [facility] Work Phone: [facility] 05-14-2022 02:18-0400 Diastolic blood pressure 65 mm[Hg] [facility] Work Phone: [facility] 05-14-2022 02:18-0400 Heart rate 54 /min [facility] Work Phone: [facility] 05-14-2022 02:18-0400 Respiratory rate 18 /min [facility] Work Phone: [facility] 05-14-2022 02:18-0400 SaO2% (BldA) [Mass fraction] 98 % [facility] [employer] Work Phone: [facility] 05-14-2022 02:18-0400 Systolic blood pressure 133 mm[Hg] [facility] Work Phone: [facility] 05-13-2022 12:09-0400 Heart rate 72 /min [facility] Work Phone: [facility] 05-13-2022 12:09-0400 Respiratory rate 18 /min [facility] [employer] Work Phone: [facility] 05-13-2022 12:09-0400 SaO2% (BldA) [Mass fraction] 98 % [facility] Work Phone: [facility] 05-13-2022 10:32-0400 Body height 156.21 cm Services [facility] Work Phone: [facility] 05-13-2022 10:32-0400 Body mass index (BMI) [Percentile] Per age and sex 95.9 % [facility] [employer] Work Phone: [facility] 05-13-2022 10:32-0400 Body mass index (BMI) [Ratio] 31.6 kg/m2 [facility] [employer] Work Phone: [facility] 05-13-2022 10:32-0400 Body temperature 98.1 [degF] Services [facility] Work Phone: [facility] 05-13-2022 10:32-0400 Body weight 77.11 kg Services [facility] Work Phone: [facility] 05-13-2022 10:32-0400 Diastolic blood pressure 87 mm[Hg] Services [facility] Work Phone: [facility] 05-13-2022 10:32-0400 Systolic blood pressure 145 mm[Hg] Services [facility] Work Phone: [facility] Encounters Encounter Date Encounter Type Care Provider Facility Start: 05-06-2025 End: 05-06-2025 ambulatory Drew Steinberg [facility] Work Phone: Start: 05-06-2025 End: 05-06-2025 Departed Referred Jasmeet Dahl MD Work Phone: [facility] Start: 05-04-2025 End: 05-04-2025 ambulatory Jasmeet Dahl [facility] Work Phone: Start: 05-04-2025 End: 05-04-2025 Departed Referred Jasmeet Dahl MD Work Phone: [facility] Start: 01-23-2025 End: 01-23-2025 ambulatory [facility] Work Phone: [facility] Work Phone: Start: 01-23-2025 End: 01-23-2025 Departed Referred [facility] Work Phone: [facility] Start: 01-16-2025 End: 01-16-2025 Emergency department patient visit August Bermudez [facility] Start: 10-28-2024 End: 10-29-2024 Emergency department patient visit [facility] Work Phone: [facility]-Emergency Room Work Phone: Start: 10-28-2024 Non-patient / Non-visit Servic es [facility] Work Phone: [facility] Work Phone: Start: 08-03-2024 End: 08-04-2024 Emergency department patient visit [facility] Work Phone: [facility]-Emergency Room Work Phone: Start: 08-01-2024 End: 08-01-2024 Emergency department patient visit MODESTA ARCHIBALD Facility:[facility] Start: 07-30-2024 End: 07-30-2024 Emergency department patient visit Cresencio Abel Facility:[facility] Start: 03-18-2024 End: 03-19-2024 Emergency department patient visit [facility] Work Phone: [facility]Emergency Room Work Phone: Start: 03-15-2024 End: 03-15-2024 Emergency department patient visit Beliaaries Carbone Ebony [facility] Start: 03-13-2024 End: 03-13-2024 Emergency department patient visit Femi Roman [facility] Start: 07-31-2023 End: 07-31-2023 Emergency department patient visit Services [facility] Work Phone: [facility]gency Room Work Phone: Start: 07-14-2023 End: 07-14-2023 ambulatory Services [facility] Work Phone: [facility] Work Phone: Start: 07-14-2023 End: 07-14-2023 Patient encounter procedure Services [facility] Work Phone: [facility] Start: 06-16-2023 End: 06-16-2023 ambulatory [facility] Work Phone: [facility] Work Phone: Start: 06-16-2023 End: 06-16-2023 Patient encounter procedure Services [facility] Work Phone: [facility] Start: 06-02-2023 Postop follow up vis it related to original px Colten Wesleyxa [facility] Start: 06-02-2023 End: 06-02-2023 ambulatory [facility] Work Phone: [employer] Other Start: 06-02-2023 End: 06-02-2023 Patient encounter procedure [facility] [employer] Work Phone: [facility] Start: 05-25-2023 End: 05-25-2023 Admission to same day surgery center [facility] [employer] Work Phone: [facility] [place] Start: 05-25-2023 End: 05-25-2023 ambulatory [facility] [employer] Work Phone: [facility] Work Phone: Start: 05-24-2023 End: 05-24-2023 ambulatory Colten Olexa Other [employer] Other Start: 05-24-2023 Telephone encounter Colten Lupilloxa [facility] Start: 05-23-2023 End: 05-23-2023 ambulatory Colten Olexa Other [employer] Other Start: 05-23-2023 Encounter for other preprocedural examination Colten Wesleyxa [facility] Start: 05-23-2023 Office outpatient ne w 45 minutes Colten Wesleyxa [facility] Start: 03-15-2023 End: 03-15-2023 Departed Referred Services [facility] Work Phone: [facility] Start: 01-26-2023 End: 01-26-[address] DOCTOR MISC Facility:[facility] Start: 01-06-2023 End: 01-07-2023 Evaluation and management of inpatient Services [facility] Work Phone: [facility] Work Phone: Start: 01-06-2023 observation encounter Services [facility] Work Phone: [facility] Work Phone: Start: 01-06-2023 End: 01-07-2023 Services [facility] Work Phone: [facility] [place] [facility] Work Phone: Start: 01-02-2023 End: 01-02-2023 Services [facility] Work Phone: [facility]-Emergency Room Work Phone: Start: 01-01-2023 End: 01-01-2023 ambulatory IRWIN DIAB . Facility:[facility] Start: 12-31-2022 End: 12-31-2022 Emergency department patient visit Services [facility] Work Phone: [facility] Work Phone: Start: 12-31-2022 End: 12-31-2022 Services [facility] Work Phone: [facility]Emergency [facility] Work Phone: Start: 11-09-2022 End: 11-09-2022 Emergency department patient visit Services [facility] Work Phone: [facility] Work Phone: Start: 11-09-2022 End: 11-09-2022 Services [facility] Work Phone: [facility]Emergency [facility] Start: 11-07-2022 End: 11-07-2022 Emergency department patient visit Services [facility] Work Phone: [facility] Work Phone: Start: 11-07-2022 End: 11-07-2022 Services [facility] Work Phone: [facility]Emergency Room Start: 11-02-2022 End: 11-02-2022 Emergency department patient visit [facility] Work Phone: [facility] Work Phone: Start: 11-02-2022 End: 11-02-2022 [facility] Work Phone: [facility]Emergency Room Start: 10-31-2022 End: 10-31-2022 Emergency department patient visit [facility] Work Phone: [facility] Work Phone: Start: 10-31-2022 End: 10-31-2022 [facility] Work Phone: [facility]Emer[facility] Room Start: 10-29-2022 End: 10-29-2022 Emergency department patient visit [facility] Work Phone: [facility] Start: 10-29-2022 End: 10-29-2022 [facility] Work Phone: [facility]Emergency [facility] Start: 08-27-2022 End: 08-27-2022 Departed Referred Services [facility] Work Phone: [facility] Start: 08-27-2022 End: 08-27-2022 [facility] Work Phone: [facility] Start: 08-20-2022 End: 08-22-2022 Evaluation and management of inpatient Services [facility] Work Phone: [facility] [place] [facility] Start: 08-20-2022 End: 08-22-2022 [facility] Work Phone: [facility] [place] [facility] Start: 08-19-2022 End: 08-20-2022 Emergency department patient visit [facility] Work Phone: [facility]Emergency Room Start: 08-19-2022 End: 08-20-2022 Services [facility] Work Phone: [facility]Emergency Room Start: 08-19-2022 End: 08-19-2022 Emergency department patient visit [facility] [employer] Work Phone: [facility]-Emergency Room Start: 08-19-2022 End: 08-19-2022 Services [facility] Work Phone: [facility]Emergency Room Start: 08-18-2022 End: 08-18-2022 Emergency department patient visit [facility] [employer] Work Phone: [facility]Emergency Room Start: 08-18-2022 End: 08-18-2022 Services [facility] Work Phone: [facility]Emergency Room Start: 06-25-2022 End: 06-25-2022 Departed Referred [facility] [employer] Work Phone: [facility] [facility] Start: 06-09-2022 End: 06-09-2022 Admission to same day surgery center [facility] [employer] Work Phone: [facility]-Digestive Health Start: 06-07-2022 End: 06-07-2022 Patient encounter procedure [facility] [employer] Work Phone: [facility]-Pre-Surgical Testing Start: 05-26-2022 End: 05-26-2022 Departed Referred [facility] [employer] Work Phone: [facility] Start: 05-16-2022 ambulatory Luana Mak RN NURSE BAB[employer] WORKER Comment on above: Abdominal Pain Start: 05-16-2022 End: 05-16-2022 Emergency department patient visit [facility] [employer] Work Phone: [facility]-Emergency Room Start: 05-15-2022 End: 05-15-2022 Emergency department patient visit [facility] [employer] Work Phone: [facility]Emergency Room Start: 05-14-2022 End: 05-14-2022 Emergency department patient visit [facility] Work Phone: [facility]Emergency Room Start: 05-14-2022 End: 05-14-2022 Emergency department patient visit [facility] Work Phone: [facility]Emergency [facility] Start: 05-13-2022 End: 05-13-2022 Emergency department patient visit Services [facility] Work Phone: [facility]-Emergency Room Start: 06-23-2018 Evaluation and manag ement [...] 08-25-2017 Patient encounter DALI B SPLAWSKI Fa cility:[facility] Start: 08-09-2017 End: 08-24-2017 Evaluation and management of inpatient AIMEE ALEMAN Facility:[facility] Procedures Date Procedure Procedure Detail Performing Clinician Start: 05-04-2025 Urine culture Jasmeet Dahl MD Work Phone: Start: 10-28-2024 Urine culture [facility] [employer] Work Phone: Start: 07-14-2023 X-ray of right knee [facility] [employer] Work Phone: Start: 06-16-2023 X-ray of right knee [facility] [employer] Work Phone: Start: 06-02-2023 X-ray of right knee [facility] [employer] Work Phone: Start: 05-25-2023 Arthroscopy of knee Services [facility] [employer] Phone: Start: 03-15-2023 Respiratory Panel (PCR) Services [facility] [employer] Phone: Start: 01-06-2023 Computed tomography of abdomen and pelvis with contrast Services [facility] [employer] Phone: Start: 01-06-2023 Plain chest X-ray [facility] [employer] Phone: Start: 01-06-2023 Pelvis X-ray [facility] [employer] Phone: Start: 01-02-2023 Urine culture [facility] [employer] Phone: Start: 12-31-2022 Influenza A and B virus antigen assay [facility] [employer] Phone: Start: 12-31-2022 Urine culture [facility] [employer] Phone: Start: 11-02-2022 Urine culture [facility] [employer] Phone: Start: 10-31-2022 Urine culture [facility] [employer] Phone: Start: 08-19-2022 Computed tomography of abdomen and pelvis with contrast Services [facility] [employer] Phone: Start: 06-09-2022 Esophagogastroduodenoscopy Services [facility] [employer] Phone: Start: 05-16-2022 Computed tomography of abdomen and pelvis with contrast [facility] [employer] Phone: Start: 08-21-2017 Introduction of Nutritional Substance [...] [facility] Work Phone: [facility] Work Phone: Plan of Treatment Date Care Activity Detail Author Start: 05-06-2025 Bacteria identified in Urine by Culture Urine Culture [facility] Start: 05-06-2025 Urine culture [facility] Start: 05-04-2025 Bacteria identified in Urine by Culture Urine Culture [facility] Start: 05-04-2025 Urine culture [facility] Start: 01-23-2025 Bacteria identified in Urine by Culture Urine Culture [facility] Start: 01-23-2025 Urine culture [facility] Start: 08-03-2024 [facility] Start: 03-18-2024 [facility] Start: 05-25-2023 [facility] Start: 05-25-2023 [facility] Start: 01-08-2023 Blood chemistry [facility] Start: 01-08-2023 [facility] Start: 01-07-2023 Blood chemistry [facility] Start: 01-07-2023 End: 01-07-2023 [facility] Start: 01-06-2023 Patient referral to dietitian [facility] Start: 01-06-2023 Hospital admission [facility] Start: 01-06-2023 [facility] Start: 01-06-2023 Computed tomography of abdomen and pelvis with contrast [facility] Start: 01-06-2023 CT Abdomen and Pelvis W contrast IV [facility] Start: 01-06-2023 End: 01-06-2023 [facility] Start: 01-06-2023 Urine culture [facility] Start: 12-31-2022 End: 12-31-2022 [facility] Start: 11-09-2022 [facility] Start: 10-29-2022 [facility] Start: 08-22-2022 [facility] Start: 08-22-[address] [facility] Work Phone: Start: 08-20-2022 Hospital admission [facility] Start: 08-20-2022 [facility] Work Phone: Start: 08-20-[address] [facility] Work Phone: Start: 08-19-2022 Computed tomography of abdomen and pelvis with contrast CT abdomen pelvis w con [facility] Start: 08-19-2022 CT Abdomen and Pelvis W contrast IV [facility] Work Phone: Start: 08-19-[address] [facility] Work Phone: Start: 07-29-2022 Influenza vaccination INFLUENZA (Season Ended) [facility] Start: 06-09-[address] [facility] Work Phone: Start: 2022 CHLAMYDIA SCREENING (18-24) CHLAMYDIA SCREENING (18-24) [facility] Start: 2022 GC (GONORRHEA) SCREENING (18-24) GC (GONORRHEA) SCREENING (18-24) [facility] Start: 2022 HEPATITIS C SCREENING HEPATITIS C SCREENING [facility] Start: 2022 HIV SCREENING HIV SCREENING [facility] Start: 2020 MENINGOCOCCAL CONJUGATE (1 - 2-dose series) MENINGOCOCCAL CONJUGATE (1 - 2-dose series) [facility] Start: 2018 PEDS TO ADULT TRANSITION ANNUAL ASSESSMENT PEDS TO ADULT TRANSITION ANNUAL ASSESSMENT [facility] Start: 2016 Adult depression screening assessment DEPRESSION SCREENING [facility] Start: 2016 PEDS TO ADULT TRANSITION INITIAL DISCUSSION PEDS TO ADULT TRANSITION INITIAL DISCUSSION [facility] Start: 2015 HPV VACCINE (1 - 2-dose series) HPV VACCINE (1 - 2-dose series) [facility] Start: 2014 MENINGOCOCCAL B: Consider based on risk (1 of 2 - Risk Bexsero 2-dose series) MENINGOCOCCAL B: Consider based on risk (1 of 2 - Risk Bexsero 2-dose series) [facility] Start: 2011 Urine microalbumin profile DTAP,TDAP,TD (1 - Tdap) [facility] Start: 2009 COVID-19 VACCINE (#1) [facility] Amphetamines [Presen ce] in Urine [facility] Work Phone: Bacteria identified in Blood by Culture [facility] Bacteria identified in Urine by Culture [facility] Bacteria identified in Urine by Culture [facility] Barbiturates [Presen ce] in Urine [facility] Work Phone: Basophils [#/volume] in Blood by Automated count [facility] Basophils/100 leukoc ytes in Blood by Automated count [facility] Benzodiazepines [Pre sence] in Urine [facility] Work Phone: Bilirubin measurement, urine [facility] Work Phone: Cannabinoids [Presen ce] in Urine by Screen method [facility] Work Phone: Choriogonadotropin ( test) [Presence] in Urine [facility] Work Phone: Cocaine [Presence] in Urine [facility] Work Phone: Color of Urine [facility] Work Phone: Detection of hemoglobin [facility] Work Phone: Eosinophils/100 leuk ocytes in Blood by Automated count [facility] Erythrocyte distribu tion width [Ratio] by Automated count [facility] Erythrocytes [#/volu me] in Blood [facility] Glucose [Mass/volume ] in Urine by Test strip [facility] Work Phone: Hematocrit [Volume F raction] of Blood [facility] Hemoglobin [Mass/vol ume] in Blood [facility] Homogenous nuclear A b pattern [Titer] in Serum [facility] Work Phone: Leukocytes [#/volume ] corrected for nucleated erythrocytes in Blood by Automated coun [facility] Leukocytes [#/volume ] in Blood [facility] Lymphocytes [#/volum e] in Blood by Automated count [facility] Lymphocytes/100 leuk ocytes in Blood by Automated count [facility] MCH [Entitic mass] b y Automated count [facility] MCHC [Mass/volume] b y Automated count [facility] MCV [Entitic volume] by Automated count [facility] Measurement of keton es in urine using dipstick [facility] Work Phone: Monocytes [#/volume] in Blood by Automated count [facility] Monocytes/100 leukoc ytes in Blood by Automated count [facility] Neutrophils [#/volum e] in Blood by Automated count [facility] Neutrophils/100 leuk ocytes in Blood by Automated count [facility] Nuclear Ab [Titer] in Serum [facility] Work Phone: Nucleated erythrocyt es [Presence] in Blood by Automated count [facility] Patient Education [facility] Work Phone: Patient referral [facility] Work Phone: Phencyclidine [Prese nce] in Urine [facility] Work Phone: Platelet mean volume [Entitic volume] in Blood by Automated count [facility] Platelets [#/volume] in Blood [facility] Protein measurement, urine F [facility] Work Phone: SARS-CoV-2 (COVID-19 ) N gene [Presence] in Respiratory specimen by JANAK with probe detection [facility] Work Phone: Urinalysis, specific gravity measurement [facility] Work Phone: Urine culture Urine Culture [facility] Urine culture [facility] Urine dipstick for nitrite F ashevilles [facility] Work Phone: Urine dipstick for s pecific gravity [facility] Work Phone: Urine pH test [facility] Work Phone: Urobilinogen concent ration, test strip measurement [facility] Work Phone: [facility] Immunizations Immunization Date Immunization Notes Care Provider Susan alvarado 01-17-2018 tetanus toxoid, redu yoni diphtheria toxoid, and acellular pertussis vaccine, adsorbed [facility] Work Phone: [facility] 01-07-2017 Human Papillomavirus 9-valent vaccine Colten Olexa Other [employer] [facility] [employer] Other 01-07-2017 HPV, unspecified formulation [facility] Work Phone: [facility] 09-06-2016 influenza, injectabl e, quadrivalent, preservative free Colten Olexa Other [facility] 09-06-2016 Human Papillomavirus 9-valent vaccine Colten Olexa Other [employer] Other 09-06-2016 HPV, unspecified formulation Services [facility] Work Phone: [facility] 07-01-2016 human papilloma viru s vaccine, quadrivalent Colten Olexa Other [facility] 07-01-2016 meningococcal polysaccharide (groups A, C, Y and W-135) diphtheria toxoid conjugate vaccine (MCV4P) Colten Olexa Other [facility] 07-01-2016 tetanus toxoid, redu yoni diphtheria toxoid, and acellular pertussis vaccine, adsorbed [facility] Olexa Other [facility] 09-01-2015 influenza, injectabl e, quadrivalent, preservative free [facility] Olex[facility] Other [facility] 08-19-2014 influenza, injectabl e, quadrivalent, contains preservative [facility] Work Phone: [facility] 08-19-2014 influenza, injectabl e, quadrivalent, preservative free Colten Olex[facility] Other [facility] Other 08-17-2013 influenza, seasonal, injectable, preservative free Colten Olexa Other [facility] Payers Date Payer Category Payer Self-pay 2019 Medicaid [employer] [id number] 2019-Present [phone] [address] [place] [address] Medicaid [id number] 2004 Unknown [id number] [id number] 2004 Unknown [id number] 2.16.840.1.504243.3.579.2.727 2004 Unknown [id number] 2.16.840.1.536271.3.579.2.727 2004 Unknown [id number] 2.16.840.1.794546.3.579.2.727 2004 Unknown [id number] 2.16.840.1.067804.3.579.2.727 2004 Unknown [id number] 2.16.840.1.219781.3.579.2.727 2004 Unknown [id number] 2.16.840.1.973579.3.579.2.727 2004 Unknown [id number] 2.16.840.1.421893.3.579.2.727 1969 Unknown [id number] 2.16.840.1.939745.3.579.2.593 1969 Unknown [id number] 2.16.840.1.851189.3.579.2.593 1959 Medicaid [id number] Medicaid [id number] Medicaid [id number] 2.16.840.1.874664.19 Unknown [id number] Unknown [id number] Unknown [id number] Unknown [id number] Unknown [id number] Unknown [id number] 2.16.840.1.706015.3.579.2.531 Unknown [id number] 2.16.840.1.649785.3.579.2.531 Unknown [id number] 2.16.840.1.890504.3.579.2.531 Unknown [id number] 2.16.840.1.620802.3.579.2.531 Unknown [id number] 2.16.840.1.343543.3.579.2.531 Social History Date Type Detail Facility Start: 10-09-2021 End: 03-13-2024 Tobacco smoking status SCIS Never smoked tobacco [facility] Start: 10-09-2021 Tobacco use and exposure Smokeless tobacco non-user [facility] Start: 10-09-2021 Alcohol intake Lifetime non-d isael (finding) [facility] Start: 10-09-2021 History SDOH Alcohol Frequency 1 [facility] Start: 2004 Sex Assigned At Not on file [facility] Start: 06-09-2022 End: 08-03-2024 Tobacco smoking status SCIS Smoker (finding) [facility] Start: 2004 Sex Assigned At Female F [facility] Start: 08-18-2022 End: 10-28-2024 Tobacco smoking status SCIS Current some day smoker [facility] Start: 01-06-2023 Tobacco smoking status NHIS Ex-smoker (finding) [facility] Sex Assigned At [facility] Tobacco smoking status Never [facility] Start: 01-24-2025 End: 05-07-2025 Sex Female (finding) [facility] NEGATED: Highlighted row [facility] Medical Equipment Procedure Code Equipment Code Equipment Origin al Text Equipment Identifier Dates Arthroscopy, knee Tendon/ligamen t bone anchor, non-bioabsorbable [id number] FDA Start: 05-25-2023 Arthroscopy, knee Soft-tissue/me sh anchor, non-bioabsorbable [id number] FDA Start: 05-25-2023 Arthroscopy, knee Tendon/ligamen t bone anchor, bioabsorbable [id number] FDA Start: 05-25-2023 Goals Date Patient Goal Desired Activity /State Functional Status Date Assessment Result Facility 01-16-2025 Functional Status N/A [facility] 07-30-2024 Functional Status N/A [facility] 03-15-2024 Functional Status N/A [facility] 03-13-2024 Functional Status N/A [facility] 01-07-2023 Functional status Patient at [facility] Work Phone: 01-06-2023 Functional status Patient at [facility] Work Phone: 08-22-2022 Functional status Patient at [facility] Work Phone: Mental Status Date Assessment Result Facility 01-07-2023 Cognitive function Patient at [facility] Work Phone: 01-06-2023 Cognitive function Patient at [facility] Work Phone: 08-22-2022 Cognitive function Patient at [facility] Work Phone: Clinical Notes 09-28-2015 to [...] your activities and whether you should start kadqs-rk-xywcqr exercises for your injury. Ice Ice your [...] provider. Document Revised: 2021 Document Reviewed: 08/04/2018 [employer] Patient Education 2020 [employer] 01/16/2025 20:36:16 Contusion Contusion A contusion [...] sitting or lying down. General instructions Take mbbg-xxu-uaqxnfy and prescription medicines only as told by [...] provider. Document Revised: 05/02/2023 Document Reviewed: 05/02/2023 [employer] Patient Education 2023 [employer] 01/16/2025 20:36:16 Fall Prevention in the Home, Adult, Yvho-gv-Eirs Fall Prevention in the Home, Adult Falls [...] Keep items that you use often in xygm-zg-ehvjt places. Lower the shelves around your home [...] of the way. Do not use floor pakistani or wax that makes floors slippery. What [...] for Disease Control and PreventionANASTACIO: cdc.gov National [place] on Aging: jacob.nih.gov National [place] on Aging: jacob.nih.gov Contact a doctor if: [...] provider. Document Revised: 07/18/2023 Document Reviewed: 07/18/2023 [employer] Patient Education 2023 Valentin Uzhun. Follow Up Care 01/16/2025 17:51:58 With:MODESTA CHAND Address: [address] [place] [id number] [phone] Business (1) When:2025 20:14:58 Comments:Call Dr for diagnosis based follow up [facility] 01-16-2025 Note ED Patient Education Note Caregiving [...] Keep items that you use often in wpvm-mn-pauwr places. Lower the shelves around your home [...] the way. ??? Do not use floor pakistani or wax that makes floors slippery. What [...] Control and Prevention, [place]: cdc.gov ??? National [place] on Aging: jacob.nih.gov ??? National [place] on Aging: jacob.nih.gov Contact a doctor if: [...] will go away. (more content not included)... [facility] 08-01-2024 Note ED Patient Education Note [...] such as yogurt. General instructions ? Take lqsz-feg-ksdulso and prescription medicines only as told by [...] provider. Document Revised: 07/29/2022 Document Reviewed: 07/29/2022 [employer] Patient Education ? 2023 [employer] Nausea and Vomiting, Adult Nausea is [...] has water adde (more content not included)... [facility] 07-31-2024 Hospital Discharg e instructions Patient [...] water added (diluted fruit juice). Eat bland, elxs-ee-zvwepq foods in small amounts as you are able. These foods include bananas, applesauce, rice, lean meats, toast, and crackers. Avoid fluids that contain a lot of sugar or caffeine, such as energy drinks, sports drinks, and soda. Avoid alcohol. Avoid spicy or fatty foods. General instructions Take huxy-moq-juoxnse and prescription medicines only as told by your health care provider. Drink enough fluid to keep your urine pale yellow. Wash your hands often using soap and water for at least 20 seconds. If soap and water are not available, use hand control electrician. Make sure that everyone in your household [...] eating and drinking to prevent dehydration. Take yuqu-dlm-wcoewpr and prescription medicines only as told by [...] provider. Document Revised: 05/21/2022 Document Reviewed: 05/21/2022 [employer] Patient Education 2023 [employer] Follow Up Care 07/30/2024 19:27:35 With:FAMILIA CHAND Address: [facility] [address] [phone] Business (1) When:08/02/2024 [facility] 07-30-2024 Note ED Patient Education Note Gastroenterology [...] added (diluted fruit juice). ? Eat bland, ddjo-wl-qsfigh foods in small amounts as you are able. These foods include bananas, applesauce, rice, lean meats, toast, and crackers. ? Avoid fluids that contain a lot of sugar or caffeine, such as energy drinks, sports drinks, and soda. ? Avoid alcohol. ? Avoid spicy or fatty foods. General instructions ? Take xomi-cjr-savmiey and prescription medicines only as told by your health care provider. ? Drink enough fluid to keep your urine pale yellow. ? Wash your hands often using soap and water for at least 20 seconds. If soap and water are not available, use hand control electrician. ? Make sure that everyone in your [...] and drinking to prevent dehydration. ? Take tegn-moz-npjqljn and prescription medicines only as told by [...] provider. Document Revised: 05/21/2022 Document Reviewed: 05/21/2022 [employer] Patient Education ? 2023 Valentin Uzhun. [facility] 07-30-2024 Evaluation + Plan note Extrac [...] Nausea/Vomiting, # 16 tab(s), Refills(s) 0, Pharmacy: [facility]/pharmacy #[id number], 157, cm, 07/30/24 19:37:00 EDT, Height/Length Dosing, 96.1, kg, 07/30/24 19:37:00 EDT, Weight Dosing promethazine, 12.5 mg = 1 tab(s), Oral, q8hr, PRN as needed for nausea/vomiting, second line, # 10 tab(s), Refills(s) 0, Pharmacy: [facility]/pharmacy #[id number], 157, cm, 07/30/24 19:37:00 EDT, Height/Length Dosing, 96.1, kg, 07/30/24 19:37:00 EDT, Weight Dosing promethazine, 12.5 mg = 1 supp, Rectal, q8hr, PRN as needed for nausea/vomiting, 3rd line, # 6 EA, Refills(s) 0, Pharmacy: [facility]/pharmacy #[id number], 157, cm, 07/30/24 19:37:00 EDT, [...] Lipase Level Magnesium Level Saline Lock Insert [facility] 04-18-2024 Hospital Discharge instructions Patient Education 03/15/2024 [...] careprovider. Do not use recreational drugs. Take kqtd-nqg-ocrogbl and prescription medicines only as told by [...] provider. Document Revised: 06/08/2022 Document Reviewed: 06/08/2022 [employer] Patient Education 2022 Valentin Uzhun. 03/15/2024 13:49:41 Nausea and Vomiting, Adult Nausea [...] water added (diluted fruit juice). Eat bland, eyfl-mw-nyukli foods in small amounts as you are able. These foods include bananas, applesauce, rice, lean meats, toast, and crackers. Avoid fluids that contain a lot of sugar or caffeine, such as energy drinks, sports drinks, and soda. Avoid alcohol. Avoid spicy or fatty foods. General instructions Take bjqk-ssx-lnuztpa and prescription medicines only as told by your health care provider. Drink enough fluid to keep your urine pale yellow. Wash your hands often using soap and water for at least 20 seconds. If soap and water are not available, use hand control electrician. Make sure that everyone in your household [...] eating and drinking to prevent dehydration. Take jiyu-nwt-znjngrw and prescription medicines only as told by [...] provider. Document Revised: 05/21/2022 Document Reviewed: 05/21/2022 [employer] Patient Education 2022 Valentin Uzhun. Follow Up Care 03/15/2024 10:34:05 With:Kirk Serrano Address:Unknown When:03/22/2024 13:33:04 Comments:Make sure to follow-up with Dr. Serrano at the surgery clinic in 1 week as instructed. Return to the emergency room if you develop chest pain, shortness of breath or any symptoms. [facility]04-18-2024 Evaluation + Plan noteExtracted from: Title:ED Note [...] CT Chest w/ Contrast eGFR Magnesium Level [facility]04-17-2024 Hospital Discharge instructions Patient Education 03/13/2024 22:27:59 Nausea and Vomiting, Adult, Fxfw-vr-Vijs Nausea and Vomiting, Adult Nausea is feeling [...] fruit juice). ?Low-calorie sports drinks. Eat bland, lyjd-cg-cnlomp foods in small amounts as you are able, such as: ?Bananas. ?Applesauce. ?Rice. ?Low-fat (lean) meats. ?[place]. ?Crackers. Avoid drinking fluids that have a lot of sugar or caffeine in them. This includes energy drinks, sports drinks, and soda. Avoid alcohol. Avoid spicy or fatty foods. General instructions Take racr-okg-vwapugy and prescription medicines only as told by your doctor. Drink enough fluid to keep your pee (urine) pale yellow. Wash your hands often with soap and water for at least 20 seconds. If you cannot use soap and water, use hand control electrician. Make sure that everyone in your home [...] your doctor about eating and drinking. Take vnnp-mmt-oqfcfyp and prescription medicines only as told by your doctor. Contact your doctor if your symptoms get worse or you have new symptoms. Keep all follow-up visits. This information is not intended to replace advice given to you by your health care provider. Make sure you discuss any questions you have with your health care provider. Document Revised: 05/21/2022 Document Reviewed: 05/21/2022 [employer] Patient Education 2022 Valentin Uzhun. 03/13/2024 22:27:59 Muscle Strain, Nlzp-ip-Uuos Muscle Strain A muscle strain, or pulled [...] is not too tight. General instructions Take qvoe-ryh-vhnsmzh and prescription medicines only as told by [...] provider. Document Revised: 02/01/2022 Document Reviewed: 02/01/2022 [employer] Patient Education 2022 Valentin Uzhun. Follow Up Care 03/13/2024 17:33:30 With:MODESTA ARCHIBALD Address: [address] [place] [address] [phone] Business (1) When:03/16/2024 Comments:You can use the medications as prescribed as needed for pain, nausea. Please follow-up with your primary care doctor for further evaluation and management. Please return to the ED if you develop chest pain, difficulty breathing or if any concerning signs or symptoms. [facility]04-16-2024 Evaluation + Plan noteExtracted from: Title:ED Note [...] for 3 day(s), 7 tab(s), Refill(s) 0, [facility]/pharmacy #[id number], 160, cm, 03/13/24 17:38:00 EDT, [...] day(s), # 9 tab(s), Refills(s) 0, Pharmacy: [facility]/pharmacy #[id number], 160, cm, 03/13/24 17:38:00 EDT, Height/Length Dosing, 95.5, kg, 03/13/24 17:38:00 EDT, Weight Dosing morphine, 4 mg = 1 mL, Injection, IV Push, Once, Stop date 03/13/24 19:50:00 EDT, STAT, Start date 03/13/24 19:50:00 EDT, 03/13/24 19:50:00 EDT naproxen, 500 mg = 1 tab(s), Oral, BID, PRN for pain, # 20 tab(s), Refills(s) 0, Pharmacy: [facility]/pharmacy #[id number], 160, cm, 03/13/24 17:38:00 EDT, Height/Length Dosing, 95.5, kg, 03/13/24 17:38:00 EDT, Weight Dosing orphenadrine, 60 mg = 2 mL, Injection, IV Push, Once, Stop date 03/13/24 20:27:00 EDT, STAT, Start date 03/13/24 20:27:00 EDT, 03/13/24 20:27:00 EDT promethazine, 25 mg = 1 supp, Rectal, q6hr, PRN Nausea/Vomiting, # 6 EA, Refills(s) 0, Pharmacy: [facility]/pharmacy #[id number], 160, cm, 03/13/24 17:38:00 EDT, [...] kg, 2.06, m2 XR Chest 2 Views [facility]07-06-2023 Evaluation note* Encounter Date Diagnosis Assessment Notes [...] Other specified postprocedural states (ICD-10 - Z98.890) [facility] Other 06-27-2023 Evaluation note* Encounter Date Diagnosis Assessment Notes Treatment Notes Treatment Clinical Notes Apr, Other specified postprocedural states (ICD-10 - Z98.890) [facility] Other 06-26-2023 Evaluation note* Encounter Date Diagnosis [...] pain for many months and potentially cause detention pain and stiffness. We have discussed the many potential complications of surgery including respiratory, cardiac, and patient positioning during anesthesia. The risks of DVT, scarring, detention pain, non union, hardware failure, development of [...] S82.111A) Apr, Pre-op exam (ICD-10 - Z01.818) [facility] Other 02-10-2023 History and physical note Author Eliana Bautista [facility] January 07, 2023 2:11am Note Date/Time January 06, 2023 5 :30pm [facility] [address] [place] [address] Hospitalist H&P Signed Patient: Pili Parikh MR#: [id number] : 2005 Acct:[id number] Age/Sex: 17 / F Adm Date: 3 Loc: Room: [address] [place] [address] Type: ADM INOo Attending Dr: Eliana Bautista MD Copies to: [facility] FRANKY Starkey MD~ HPI DATE OF [...] unless noted in the HPI or below [facility] Attestation Statement: The following information was [...] % (Auto) 19.9 % (.) 01/06/23 14:20 [place] % (Auto) 7.4 % (.) 01/06/23 14:20 Eos % (Auto) 2.3 % (.) 01/06/23 14:20 Baso % (Auto) 0.3 % (.) 01/06/23 14:20 Nucleat RBC Rel Count 0.1 /100 WBC (0-0.5) 01/06/23 14:20 Neut # (Auto) 12.4 x10E3/uL (1.2-7.7) H 01/06/23 14:20 Lymph # (Auto) 3.5 x10E3/uL (1.20-4.8) 01/06/23 14:20 [place] # (Auto) 1.3 x10E3/uL (0.1-1.00) H 01/06/23 [...] pH 6.5 (5.0-9.0) 01/06/23 16:10 Ur Specific [place] 1.027 (1.001-1.030) 01/06/23 16:10 Urine Protein 100 [...] signed by Eliana Bautista MD> 01/07/23 021 [facility] Work Phone: 1(244) 357-768009-24-2022 Progress note Author Gregorio Carey [facility] August 21, 2022 5:01pm Note Date/Time August 21, 2022 5:01pm [facility] [address] [place] [address] Hospitalist Progress Note Signed Patient: Pili Parikh MR#: [id number] : 2005 Acct:[id number] Age/Sex: 17 / F Adm Date: 2 Loc: 3T Room: [address] [place] [address] Type: ADM IN Attending Dr: Gregorio Carey [...] alot of discomfort. She recalls that the clinical product manager told her that in warm water against [...] Gm/10 Ml Udc PO 08/22/23 06:59 TID.AC.[facility] A&P - Hospitalist Assessment/Plan (1) [...] [facility] Work Phone: 1(900) 996-641709-23-2022 History and physical note Author Gregorio Carey [facility] August 20, 2022 8:17pm Note Date/Time August 20, 2022 8:17pm [facility] [address] [place] [address] Hospitalist H&P Signed Patient: Pili Parikh MR#: [id number] : 2005 Acct:[id number] Age/Sex: 17 / F Adm Date: 2 Loc: Room: [address] [place] [address] Type: ADM IN Attending Dr: Gregorio Carey DO Copies to: [facility] Gregorio Carey DO~ HPI DATE OF [...] % (Auto) 11.5 % (.) 08/20/22 16:21 [place] % (Auto) 3.7 % (.) 08/20/22 16:21 Eos % (Auto) 0.3 % (.) 08/20/22 16:21 Baso % (Auto) 0.4 % (.) 08/20/22 16:21 Neut # (Auto) 9.2 x10E3/uL (1.2-7.7) H 08/20/22 16:21 Lymph # (Auto) 1.3 x10E3/uL (1.20-4.8) 08/20/22 16:21 [place] # (Auto) 0.4 x10E3/uL (0.1-1.00) 08/20/22 16:21 [...] <Electronically signed by Gregorio Carey DO> 08/20/222016 [facility] Work Phone: 1(985) 215-609106-19-2022 Miscellaneous Notes* Telephone Encounter - Luana Mak [...] way to [facility], she will go there. Reason for Disposition Chest pain [1] Chest pain lasts > 5 minutes AND [2] described as crushing, pressure-like, or heavy Protocols used: ABDOMINAL PAIN - KVOTT-XHRAN-RF, CHEST XKBP-VXYHP-CY [facility] NoteHNO ID: [id number] Author: Rolando Wooten MD Service: ? Author [...] completed when applicable. PROCEDURE NOTE: IANDD right INNER TUBE INSERTER Risks, benefits, personnel and alternatives were explained. The patient wished to proceed. S/he was re-identified and a time out obtained. PROCEDURE drainage right INNER TUBE INSERTER PREOPERATIVE DIAGNOSIS: right peritonsillar abscess POSTOPERATIVE DIAGNOSIS tonsillitis without pus in right peritonsillar area INDICATIONS: chronic right throat pain, worsening, concern for right INNER TUBE INSERTER at outside facility on scan . Drainage [...] there were no complication. MD Rolando Cherry, [facility]11-12-2021 NoteHNO ID: [id number] Author: Rolando Wooten MD Service: ? Author Type: Physician Type: Progress Notes Filed: 11/13/2021 1:09 AM Note Text: [place] [facility] Consult This consult was requested by [...] tonsillitis. 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 Medical History intermittent asthma Medical History lactose intolerance Medical History POTS diag 09/2015 Surgical History appendectomy 2019 Hospitalization History strepthroat, uri, dehydr ation, otitis media 2004 Hospitalization History dehydtation 2006 Hospitalization History [facility] [place] persistent vomiti ng 09/12- Hospitalization History 3 days vomitting blood 0 01/2017 Hospitalization History vomiting, abd pain, dehy dration [facility] 07/22-07/27/2017 Hospitalization History RBC 08/14 [facility] Other Evaluation noteNo assessment information available [facility] Work Phone: Evaluation note* Diagnosis Onset Date Resolution Status Nausea & vomiting acute [facility] Work Phone: Evaluation note* Diagnosis Onset Date Resolution Status Dehydration acute Hypokalemia acute Intractable nausea and vomiting acute Nausea & vomiting acute [facility] Work Phone: Evaluation note* Diagnosis Onset Date Resolution Status Abdominal pain acute Acute hypokalemia acute Chest pain acute Dehydration acute Hypokalemia acute Hypovolemia acute [place] tear acute Nausea & vomiting acute [facility] Work Phone: History and physical note Author Eliana Bautista [facility] January 07, 2023 2:11am Note Date/Time January 06, 2023 5 :30pm [facility] [address] [place] [address] Hospitalist H&P Signed Patient: Pili Parikh MR#: [id number] : 2005 Acct:[id number] Age/Sex: 17 / F Adm Date: 3 Loc: Room: [address] [place] [address] Type: ADM INOo Attending Dr: Eliana Bautista MD Copies to: [facility] FRANKY Starkey MD~ HPI DATE OF [...] unless noted in the HPI or below [facility] Attestation Statement: The following information was [...] % (Auto) 19.9 % (.) 01/06/23 14:20 [place] % (Auto) 7.4 % (.) 01/06/23 14:20 Eos % (Auto) 2.3 % (.) 01/06/23 14:20 Baso % (Auto) 0.3 % (.) 01/06/23 14:20 Nucleat RBC Rel Count 0.1 /100 WBC (0-0.5) 01/06/23 14:20 Neut # (Auto) 12.4 x10E3/uL (1.2-7.7) H 01/06/23 14:20 Lymph # (Auto) 3.5 x10E3/uL (1.20-4.8) 01/06/23 14:20 [place] # (Auto) 1.3 x10E3/uL (0.1-1.00) H 01/06/23 [...] pH 6.5 (5.0-9.0) 01/06/23 16:10 Ur Specific [place] 1.027 (1.001-1.030) 01/06/23 16:10 Urine Protein 100 [...] MD Documented By: Anette Stout APRN 01/06/23 1654 Signed By: <Electronically signed by FRANKY Stout> 01/06/23 1817 <Electronically signed by Eliana Bautista MD> 01/07/[address] [facility] Work Phone: Hospital course Narrative No data available for this section [facility] Work Phone: Hospital Discharge instructions Additional Instructions Follow-up with your primary care doctor Return to ED if develop worsening symptoms [facility] Work Phone: Hospital Discharge instructions Additional Instructions Follow-up with your primary care doctor Return to the ED if you develop worsening [facility] Work [facility] Hospital Discharge instructions Additional Instructions Take Phenergan as prescribed for nausea vomiting. Take Motrin and Tylenol as needed for muscle aches and pains. Take Carafate as prescribed.[facility] Work Phone: Hospital Discharge instructions [...] you should first call your surgeon at [phone] for advice. If your are unable to contact your surgeon, seek help from a hospital emergency room. [facility] Work Phone: Hospital Discharge instructions [...] with your family physician as soon as possible.[facility] Work Phone: Progress note No data available for this section [facility] Summary Purpose Family History No Family History [...] DATE CREATED AUTHOR AUTHOR'S ORGANIZ ATION 07/14/2018 [facility] DATE CREATED AUTHOR AUTHOR'S ORGANIZ ATION 01/04/2022 [facility] DATE CREATED AUTHOR AUTHOR'S ORGANIZ ATION 02/02/2023 [facility] DATE CREATED AUTHOR AUTHOR'S ORGANIZ ATION 07/30/2024 [facility] DATE CREATED AUTHOR AUTHOR'S ORGANIZ ATION 08/02/2024 [facility] DATE CREATED AUTHOR AUTHOR'S ORGANIZ ATION 08/05/2024 [facility] DATE CREATED AUTHOR AUTHOR'S ORGANIZ ATION 01/18/2025 [facility] DATE CREATED AUTHOR AUTHOR'S ORGANIZ ATION 01/23/2025 [facility] DATE CREATED AUTHOR AUTHOR'S ORGANIZ ATION 05/10/2025 [facility] Source Comments (unrecognize d section and content) In the event this informatio n is protected by the Federal Confidentiality of Alcohol and Drug Abuse Patient Records regulations: The Federal rules restrict any use of the information to criminally investigate or prosecute any alcohol or drug abuse patient.[facility] Reason for Visit (unrecogniz ed section and content) Reason Comments Ab[facility] Care Teams (unrecognized sec tion and content) Team Status: Inactive Member Role Status Dates Services [facility] Primary Care Provider MILY Bishop Attending Provide r Active Team Status: Inactive Member Role Status Dates [facility] Primary Care Provider Active Modesta Leeanna Chand , POLICY LOAN CALCULATOR-C Attending Provide r Active Team Status: Inactive Member Role Status Dates Services [facility] Primary Care Provider Active Brennen Britt MD Attending Provider Active Team Status: Inactive Member Role Status Dates Services [facility] Primary Care Provider Active Art Bianchi , DO Emergency Provider Active Team Status: Inactive Member Role Status Dates Services [facility] Primary Care Provider Active Ravi Arguello , DO Emergency Provider Active Team Status: Inactive Member Role Status Dates Services [facility] Primary Care Provider Active Ender Donovan , Emergency Provider Active Team Status: Inactive Member Role Status Dates Services [facility] Primary Care Provider Active Gilson Castro DO Emergency Provider Active Team Status: Active Member Role Status Dates Services [facility] Primary Care Provider Ac tive Team Status: Inactive Member Role Status Dates Services [facility] Primary Care Provider Ac latesha Rivera APRN Emergency Provider Active Team Status: Inactive Member Role Status Dates Services [facility] Primary Care Provider Ac latesha Fry Jr, MD Emergency Provider Active Team Status: Inactive Member Role Status Dates Services [facility] Primary Care Provider Ac latesha Castro , DO Emergency Provider Active Team Status: Active Member Role Status Dates Services [facility] Primary Care Provider Ac latesha Castro , DO Emergency Provider Active Gregorio Carey , DO Admit Provider, Attending Pr ovider Active Team Status: Inactive Member Role Status Dates Services [facility] Primary Care Provider Ac latesha Castro , DO Emergency Provider Active Gregorio Aurelio , DO Admit Provider, Attending Pr ovider Active Team Status: Inactive Member Role Status Dates Services [facility] Primary Care Provider Ac latesha Arguello , DO Emergency Provider Active Team Status: Inactive Member Role Status Dates Art Bianchi DO Emergency Provider Active Services [facility] Primary Care Provider Ac tive Team Status: Inactive Member Role Status Dates Services [facility] Primary Care Provider Ac latesha Bolanos DO Emergency Provider Active Team Status: Inactive Member Role Status Dates Services [facility] Primary Care Provider Ac latesha Bianchi , DO Emergency Provider Active Team Status: Inactive Member Role Status Dates Services [facility] Primary Care Provider Active Dixon Newberry MD Emergency Provider Active Team Status: Active Member Role Status Dates Services [facility] Primary Care Provider Active Team Status: Inactive Member Role Status Dates Services [facility] Primary Care Provider Active Federico Randolph DO Emergency Provider Active Team Status: Active Member Role Status Dates Services [facility] Primary Care Provider Active Rd Brown PA-C Emergency Provider Active Eliana Bautista MD Admit Provider, Attending Provider Active Team Status: Inactive Member Role Status Dates Services [facility] Primary Care Provider Active Rd Brown PA-C Emergency Provider Active Eliana Bautista MD Admit Provider, Attending Provider Active Team Status: Inactive Member Role Status Dates Services [facility] Primary Care Provider Active Colten Miller MD Attending Provider Active Team Status: Inactive Member Role Status Dates Services [facility] Primary Care Provider Active Start: March 18, 2024 End: March 19, 2024 Femi Benitez MD Emergency Provider Active Star t: March 18, 2024 End: March 19, 2024 Team Status: Inactive Member Role Status Dates Services [facility] Primary Care Provider Active Start: August 03, 2024 End: August 04, 2024 Ania Watson MD Emergency Provider Active Start: August 03, 2024 End: August 04, 2024 Team Status: Active Member Role Status Dates Services [facility] Primary Care Provider Active Start: October 28, 2024 Cesar Mcdonald DO Attending Provider Active Sta rt: October 28, 2024 Team Status: Inactive Member Role Status Dates [facility] Primary Care Provider Active [...] BE BASED ON THE PRIMARY CLINICAL RECORDS. [facility]. provides no warranty or guarantee of the accuracy or completeness of information in this document.
[2025-08-22] MEDS: POTASSIUM CHLORIDE 10 MEQ ER TABLET 20 MEQ PO (06:00)
[2025-08-22] MEDS: DEXTROSE 5%-LACTATED RINGERS 1,000 ML 100 ML IV (06:00)
--- NOTE | 2025-08-22 06:30 | PC.NURSE ---
assumed care of this pt, she is resting on er cart 7
[2025-08-22 06:46] VITALS: BP 114/79; PULSE 76; O2SAT 96
== END 2025-08-22 07:04 | disposition home or self-care (01) ==
PROVIDERS: Emergency Provider Emergency Medicine
DX: O21.9 Vomiting of pregnancy, unspecified (principal); O99.331 Smoking (tobacco) complicating pregnancy, first trimester; F17.200 Nicotine dependence, unspecified, uncomplicated; Z3A.00 Weeks of gestation of pregnancy not specified
CPT/HCPCS: 36415; 80053; 80307; 81001; 84702; 85025; 96361; 96374; 96375; 99284; J2405; J3490

== ENCOUNTER 2025-08-23 19:49 | Emergency (ER) | payer OTHER, SELFPAY ==
--- OUTSIDE RECORDS SUMMARY | 2022-02-09 14:35 | XMS_ITS | Continuity of Care Document ---
Author Organization [facility] Address [address] [place] [address] Phone Care Team Providers Care Manufacturing Shift Supervisor Name Role Phone [facility], Em Afshan Unavaila ble Allergies, Adverse Reactions, [...] High Risk Nutrit Couns For Control Of [place] Dis May Oral Hygiene Instruction OFFICE/OUTPATIENT VISIT, EST HEPB VACC PED/ADOL 3 DOSE IM HIB VACCINE, PRP-T, IM DTAP VACCINE, < 7 YRS, IM MMR VACCINE, SC Advance Directives Directive Yes / No Effective Date File Name No Information Encounters Encounter Description Practice Location Reason(s) For Visit Diagnoses Date Provider Providers Copied on Encounter [facility], [address] [place] [address], [id number], tel:[phone] [facility] No Information Lacho [facility] Em. [address] [place] [address], [id number], [place]. tel:[phone] [facility], [address] [place] [address], [id number], [place] tel:[phone] Dental Clinic [facility] [address] [place] [address], [id number], [place]. tel:[phone] [facility], [address] [place] [address], [id number], [place] tel:[phone] Dental Clinic filling (chief complaint) Encounter for screening for dental disorders [employer] [facility]. [address] [place] [address], [id number], [place]. tel:[phone] [facility], [address] [place] [address], [id number], tel:[phone] Dental Clinic Encounter for screening for dental disorders Shanti Holly. [address] [place], [place], [id number], [place]. tel:[phone] [facility], [address] [place], [place], [id number], [place] tel:[phone] Dental Clinic Dental New (chief complaint) Encounter for screening for dental disorders Shanti Holly. [address] [place], [place], [id number], [place]. tel:[phone] OFFICE/OUTPATI ENT VISIT, EST [facility], [address] [place], [place], [id number], [place] tel:[phone] [facility] No Information Albaro Barlow. [address] [place], [place], [id number], [place]. tel:[phone] Family History Family Member Type Diagnosis Age [...] Covered democrat ID Diandra gamezelvia(s) D Medicaid [facility] [id number] Social History Type Description Quantity Date Captured [...]
--- OUTSIDE RECORDS SUMMARY | 2025-01-30 09:00 | XMS_ITS ---
Author Organization [employer] es Address [address] [place] [address] Care Team Providers Care Multimedia Developer Name Role Phone Modesta Lira Primary Care Provider [phone] KenzieDebrah Unavailable [phone] Modesta Chand Unavailable [phone] REASON FOR VISIT Pots disease, vomiting Social History Sex Assigned At : Social History Observation Description Sex Assigned At Female Encounters Encounter Location Date Provider Diagnosis [facility] [address] [place] [address] 01/30/2025 Modesta Chand Plan Of Treatment Next Appt Details Provider Name:Kelsye Espino, 08/28/2025 02:30:00 PM, [address] [place], [address], Progress Notes * COLTONPILI TERRY ADOB: [birth year] (20 yo F)Acc No.[id number]:01/30/2025 Progress Note Patient: PILI PENALOZA Provider: Jesus Chand CNP :2005 A ge:20 Y S ex:Female Date:01/30/2025 Address:[address] [place], [place] Pcp:Modesta Lira Subjective: * Chief Complaints: * 1 . Pots disease, vomiting. * Medical History: Objective: * Vitals: Assessment: Plan: * Treatment: Care Plan: * Problems: * Images: * Electronic signature of Lorie Chand CNP on 08/23/2025 at 08:29 PM EDT Sign off status: Pending * Provider: Jesus Chand CNP Date: 0 01/30/2025 Generated for Yang huffman/Marcos/Lorraine on: 0 08/23/2025 08:29 PM EDT
--- OUTSIDE RECORDS SUMMARY | 2025-05-22 05:00 | XMS_ITS ---
Author Organization [employer] es Address [address] [place] [address] Care Team Providers Care Haunted History Tour Guide Name Role Phone Modesta Lira Primary Care Provider Kelsey Espino Unavailable [phone] REASON FOR VISIT nexplanon removal Social History Sex Assigned At : Social History Observation Description Sex Assigned At Female Encounters Encounter Location Date Provider Diagnosis [place] [address] [place] [address] 05/22/2025 Kelsey Espino Plan Of Treatment Next Appt Details Provider Name:Kelsey Espino, 08/28/2025 02:30:00 PM, [address] [place], [address], Progress Notes * PILI SEGURA ADOB: [birth year] (20 yo F)Acc No.[id number]:05/22/2025 progress note Patient: PILI PENALOZA A Provider: Raf Espino :2005 A ge:20 Y S ex:Female Date:05/22/2025 Address:[address] [place], [place] Pcp:Modesta Lira Subjective: * Chief Complaints: * 1 . Nexplanon removal. * Medical History: Objective: * Vitals: Assessment: Plan: * Treatment: Care Plan: * Problems: * Images: * Electronic signature of Kina Espino NP on 08/23/2025 at 08:29 PM EDT Sign off status: Pending * Provider: Raf Espino Date: 0 05/22/2025 Generated for Yang huffman/Marcos/Lorraine on: 0 08/23/2025 08:29 PM EDT
--- OUTSIDE RECORDS SUMMARY | 2025-08-21 09:45 | XMS_ITS ---
Author Organization [facility] [employer] es Address [address] [place] [address] Care Team Prov[address] Care Court Clerk Name Role Phone Modesta Lira Primary Care Provider [phone] Kelsey Espino Unavailable [phone] Allergies Allergen (clinical drug ingredient) Drug/Non Drug [...] Status W/U Status Risk Notes Problem Amenorrhea (76022999) Amenorrhea (N91.2) Active confirmed Vital Signs Height 62.5 in 08/21/2025 Weight 200 lbs 08/21/2025 BMI 35.99 kg/m2 08/21/2025 Temperature 98 degrees Fahrenheit 08/21/2025 Blood pressure systolic 145 mm Hg 08/21/20 Blood pressure diastolic 81 mm Hg 025 Oximetry 97 % 08/21/2025 Heart Rate 93 /min 08/21/2025 Respiratory Rate 20 /min 08/21/2025 Encounters Encounter Location Date Provider Diagnosis [facility] [address] [place] [address] 08/21/2025 Kelsey Kenzie Amenorrhea N91.2 and Nausea [...] new OB visit next week to discuss [facility] care. Patient agreeable and verbalizes understanding. 08/21/2025 [...] new OB visit next week to discuss [facility] care. Patient agreeable and verbalizes understanding. Nausea [...] Name:Kelsey Espino, 08/28/2025 02:30:00 PM, [address] [place], [address], Progress Notes * PILI SEGURA ADOB: [birth year] (20 yo F)Acc No.[id number]:08/21/2025 Progress Notes Patient: PILI PENALOZA A Provider: Raf rodríguezah Kenzie :2005 A ge:20 Y S ex:Female Date:08/21/2025 Address:[address] [facility] Pcp:Modesta Lira Subjective: * Chief Complaints: [...] Codes: 3 079F DIAST BP 80-89 MM [id number] RVW MEDS BY RX/ IN [id number] SYST BP >= 140 MM HG * Follow Up: 1 Week * Images: * Sign off status: Completed true * Provider: Raf Espino Date: 0 08/21/2025 Generated for Yang huffman/Marcos/Lorraine on: 0 08/23/2025 08:29 PM EDT History and Physical Notes * [...]
[2025-08-23 19:53] VITALS: BP 112/77; PULSE 60; TEMP 37; O2SAT 98; BMI 34.3
--- NOTE | 2025-08-23 20:20 | ED.GENADUL1 ---
HPI HPI - General Adult General Chief complaint: Abdominal Pain Stated complaint: AMBDOMINAL PAIN Time Seen by Provider: 08/23/25 20:09 Source: patient Mode of arrival: ambulance History of Present Illness HPI narrative: history of cyclical vomiting, POTS disease. she is 4-5 weeks . [id number]. seen here 2 nights ago for vomiting and improved with treatment. Seen at [facility] yesterday for the same. Had ultrasound performed but doesn't know the results because she left. Was given zofran and phenergan suppositories. Now presents here with recurrent vomiting. No vaginal bleeding or diarrhea. Abdomen is sore from recurrent vomiting. no fever or urinary symptoms Related Data Home Medications ?Medication ?Instructions ?Recorded ?Confirmed cpzeeikdyu-pabacvkynqcuc-vddsubjd cap 07/14/25 50 mg-300 mg-40 mg capsule Allergies Allergy/AdvReac Type Severity Reaction Status Date / Time metoclopramide (From Reglan) AdvReac Intermediate facial Verified 08/23/25 20:44 drooping Opioid HPI Opioid Management Most Recent Opioid Data: Last Pain Scale 8 05/06/25, 07:55 Last ORT Total Score 5 05/03/25, 14:33 Last ORT Risk Category Moderate Risk 05/03/25, 14:33 Ur Phencyclidine Scrn, (NEGATIVE) Negative 05/04/25, 06:20 Review of Systems ROS Status of ROS 10 or more systems reviewed and unremarkable except as noted in history and below [facility] Medical History (Updated 08/23/25 @ 22:52 by Drew Steinberg MD) Marijuana use ?F12.90 - Cannabis use, unspecified, uncomplicated (ICD-10) Asthma ?J45.909 - Unspecified asthma, uncomplicated (ICD-10) Leukocytosis ?D72.829 - Elevated white blood cell count, unspecified (ICD-10) Bipolar 1 disorder ?F31.9 - Bipolar disorder, unspecified (ICD-10) Migraine ?G43.909 - Migraine, unspecified, not intractable, without status migrainosus (ICD-10) POTS (postural orthostatic tachycardia syndrome) ?G90.A - Postural orthostatic tachycardia syndrome [POTS] (ICD-10) Cyclic vomiting syndrome ?R11.15 - Cyclical vomiting syndrome unrelated to migraine (ICD-10) Cyclic vomiting syndrome ?R11.15 - Cyclical vomiting syndrome unrelated to migraine (ICD-10) Fall ?W19.XXXA - Unspecified fall, initial encounter (ICD-10) Fracture of tibial plateau ?S82.143A - Displaced bicondylar fracture of unspecified tibia, initial encounter for closed fracture (ICD-10) Surgical History History of appendectomy ?Z90.49 - Acquired absence of other specified parts of digestive tract (ICD-10) Family History Father Family history of stroke Family history of diabetes mellitus Family history of cancer Family history of hypertension Family history of CHF (congestive heart failure) Grandfather Family history of stroke Grandmother Family history of myocardial infarction Mother Family history of diabetes mellitus Family history of cancer Social History (Updated 05/03/25 @ 14:23 by Emili Benitez) Within the past year, how often did you have a drink containing alcohol: never Score interpretation: A score less than 3 is consistent with normal alcohol consumption. Smoking status: Current every day smoker Non-prescribed substance use: cannabis (any form) Previous occupational history: [employer] Highest level of school completed/degree received: high school graduate Little interest or pleasure in doing things: not at all Feeling down, depressed, or hopeless: not at all Feel stressed/tense/nervous/anxious/difficulty sleeping: not at all Do you think of yourself as: straight/heterosexual Gender Identity: female Exam Constitutional Vital Signs, click to edit/add: Last Vital Signs Temp 98.9 F 08/23/25 21:28 Pulse 52 L 08/23/25 22:20 Resp 20 08/23/25 22:20 BP 138/82 08/23/25 22:20 Pulse Ox 99 08/23/25 22:20 O2 Del Method Room Air 08/23/25 22:20 Common normals: no apparent distress, average body habitus, oriented x3, no limitations, healthy appearing, alert and well nourished [facility] Common normals: normocephalic and head/scalp atraumatic Eye Common normals: EOMs intact bilaterally and conjunctivae normal Respiratory Common normals: normal respiratory effort, no retractions, no use of accessory muscles and clear to auscultation bilaterally Cardio Common normals: regular rate, regular rhythm, S1 normal heart sound and S2 normal heart sound GI Common normals: Normal to inspection, nondistended, normoactive bowel sounds present and soft to palpation Other: mild nonspecific tenderness. no guarding Extremity Common normals: normal to inspection and full ROM Neuro Common normals: oriented x3, CN's II-XII intact bilaterally, moves all extremities, no focal motor deficits and no sensory deficits noted Psych Appearance: grossly normal Course Vital Signs Vital signs: Vital Signs Temperature 98.6 F 08/23/25 19:53 Pulse Rate 60 08/23/25 19:53 Respiratory Rate 20 08/23/25 19:53 Blood Pressure 112/77 08/23/25 19:53 Pulse Oximetry 98 08/23/25 19:53 Oxygen Delivery Method Room Air 08/23/25 19:53 Temperature 98.9 F 08/23/25 21:28 Pulse Rate 52 L 08/23/25 22:20 Respiratory Rate 20 08/23/25 22:20 Blood Pressure 138/82 08/23/25 22:20 Pulse Oximetry 99 08/23/25 22:20 Oxygen Delivery Method Room Air 08/23/25 22:20 Medical Decision Making MDM Narrative Medical decision making narrative: patient has history of POTS, past history of cyclical vomiting from marijuana use. Believes she is 4-5 weeks . Presents with recurrent vomiting for past 3-4 days. This is her 3rd visit to the ER for vomiting. On exam she is not toxic and not even tachycardic. labs, IV hydration and anti emetics ordered labs demonstrate hypokalemia with potassium 2.9. IV potassium ordered. Patient complained of burning from the IV potassium and requested to take potassium PO which she did successfully. She did not provide a urine specimen but did not want to wait. [place] she was better and wanted to go home. she has zofran and phenergan suppositories that she got from [facility] yesterday. Admits now that she only used one suppository all day she does have mild elevation of BUN and WBC elevated from demargination. Discharged after 1L NS hydration and advised to follow up with her doctor in a couple of days for recheck Lab Data Labs: Lab Results 08/23/25 Range/Units 20:55 WBC 14.6 H (4.0-11.0) 10^3/uL RBC 5.18 (4.20-5.40) 10^6/uL Hgb 15.3 (12.0-16.0) g/dL Hct 44.6 (36.0-48.0) % MCV 86.1 (81.0-99.0) fL MCH 29.5 (26.7-34.0) pg MCHC 34.3 (29.9-35.2) g/dL RDW 12.7 (11.0-15.0) % Plt Count 352 (150-450) 10^3/uL MPV 9.9 (9.5-13.5) fL Neut % (Auto) 78.4 H (43.0-75.0) % Lymph % (Auto) 12.4 L (20.5-60.0) % [place] % (Auto) 8.3 (1.7-12.0) % Eos % (Auto) 0.1 L (0.9-7.0) % Baso % (Auto) 0.3 (0.2-2.0) % Neut # (Auto) 11.4 H (1.4-6.5) 10^3/uL Lymph # (Auto) 1.8 (1.2-3.8) 10^3/uL [place] # (Auto) 1.2 H (0.3-0.8) 10^3/uL Eos # (Auto) 0.0 (0.0-0.7) 10^3/uL Baso # (Auto) 0.0 (0.0-0.1) 10^3/uL Abs Immat Gran (auto) 0.08 H (0.00-0.03) 10^3/uL Imm/Tot Granulo (auto) 0.5 (0.0-0.5) % Sodium 137 (136-145) mmol/L Potassium 2.9 L* (3.5-5.1) mmol/L Chloride 96 L (98-107) mmol/L Carbon Dioxide 31.9 (21.0-32.0) mmol/L Anion Gap 12.0 BUN 26.0 H (7.0-18.0) mg/dL Creatinine 0.89 (0.55-1.02) mg/dL Est GFR ( Amer) >60 (>=60 mL/min/1.73m^2) Est GFR (Non-Af Amer) >60 (>=60 mL/min/1.73m^2) BUN/Creatinine Ratio 29.2 Glucose 102 (74-106) mg/dL Lactate 1.2 (0.4-2.0) mmol/L Calcium 9.7 (8.5-10.1) mg/dL Total Bilirubin 0.7 (0.2-1.0) mg/dL AST 20 (15-37) U/L ALT 42 (14-59) U/L Alkaline Phosphatase 84 (46-116) U/L Total Protein 9.1 H (6.4-8.2) g/dL Albumin 4.9 (3.4-5.0) g/dL Globulin 4.2 g/dL Albumin/Globulin Ratio 1.2 Lipase 36.0 (16.0-77.0) U/L Discharge Plan Discharge Chief Complaint: Abdominal Pain Clinical Impression: Hypokalemia, Cyclical vomiting Patient Disposition: Home, Self-Care Prescriptions / Home Meds: No Action mnmrmvjlax-ohsacnlytokxp-rnbl 50-300-40 mg capsule Print Language: Wolof Instructions: Hypokalemia (ED), Acute Nausea and Vomiting (ED) Referrals: [facility] [Primary Care Provider] - 1 week
--- OUTSIDE RECORDS SUMMARY | 2025-08-23 20:32 | XMS_ITS | CCD ---
Author Organization [facility] Care Team Providers Care Shallot Packer Name Role Phone Calvin, Mere T Unavailable [...] Nilay Unavailable Unavailable Unavailable [facility] Primary Care Provider DO Art Bianchi Emergency Provider Donovan, DO Ender J Emergency Provider Tugisselle, DO VoRavi M Emergency Provider Matthew DO Gilson Emergency Provider MILY Chand Attending Pr ovider MD Brennen Britt Attending Provider [facility] Prov ider [facility] Primary Care Provider [phone] FRANKY Rivera Emergency Provider [phone] MD Colten Fry Jr Emergency Provider DO Matthew Gilson Emergency Provider [phone] Aurelio, DO Gregorio Admit Provider [phone] Aurelio DO Gregorio Attending Provider [facility] Prov ider FRANKY Rivera Emergency Provider MD Colten Fry Jr Emergency Provider Matthew DO Gilson Emergency Provider [phone] Aurelio DO Gregorio Admit Provider Aurelio, DO Gregorio Attending Provider [phone] MILY Chand Attending Pr ovider Tugisselle, DO Rodrigues M Emergency Provider [facility] Prov ider FRANKY Rivera Emergency Provider MD Colten Fry Jr Emergency Provider DO Matthew Gilson Emergency Provider Aurelio, DO Gregorio Admit Provider [phone] Aurelio DO Gregorio Attending Provider MILY Chand Attending Pr ovider DO Ravi Arguello Emergency Provider DO Art Bianchi Emergency Provider DO Robert Bolanos Emergency Provider [phone] [facility] Primary Care Provider MD Dixon Newberry Emergency Provider [phone] [facility] Primary Care Prov ider DO Federico Randolph Emergency Provider KATE Damian Emergency Provider [phone] MD Eliana Bautista Admit Provider [phone] MD Eliana Bautista Attending Provider SANDRO, [...] Pr ovider MD Colten Miller Attending Provider [phone] [facility] Primary Care Provider [phone] DO Ravi Arguello Emergency Provider [phone] MODESTA ARCHIBALD Primary Care Physician [facility] Primary Care Provider MD Femi Benitez Emergency Provider Cresencio Abel Attending Unavailable MODESTA ARCHIBALD Primary Care Unavailable MODESTA ARCHIBALD Primary Care Unavailable August Bermudez Attending Unavailable MODESTA ARCHIBALD Primary Care Unavailable DO sIaak Francis Attending Unavailable [facility] Primary Care Provider MD Ania Watson Emergency Provider MODESTA ARCHIBALD Primary Care Unavailable August Bermudez Attending Unavailable Cresencio Abel Attending Unavailable MODESTA ARCHIBALD Primary Care Unavailable MODESTA CHAND Primary Care Physician [phone] August Bermudez Attending Unavailable August Bermudez Attending Unavailable August Bermudez Attending Unavailable [facility] Primary Care Provider Rd Brown PA-C Emergency Provider [phone] Makayla Monk DO Attending Provider Jasmeet Dahl MD Attending Provider [phone] Drew Steinberg MD Attending Provider [phone] Jasmeet Dahl Admitting Unavailable Jasmeet Dahl Attending [...] Drug Allergy 3 Unknown Reaction, facial droop [facility] (17 sources) Metoclopramide; Translations: [Metoclopramide] Drug Allergy 3 Unknown (qualifier value) [facility] (5 sources) Haloperidol; Translations: [Haldol] Drug Allergy [facility] (5 sources) Iothalamate; Translations: [Reglan] Drug Allergy [facility] Medications Current Medications Medication Drug Class(es) Dates Sig (Normalized) Sig (Original) acetaminophen 325 mg / HYDROcodone bitartrate 5 mg oral tablet (20 sources) Opioid Agonist Start: 03-13-2024 End: 03-16-2024 [place] 325 mg-5 mg oral tablet 1 tab(s), Oral, q6hr for pain for 3 day(s), 7 tab(s), Refill(s) 0, [id number], 160, cm, 03/13/24 17:38:00 EDT, Height/Length Dosing, [...] six hours as needed for pain Hydrocodone-Acetaminophen ([place]) 5-325 mg tablet Discontinued 1 TAB PO [...] twice daily as needed for pain Hydrocodone-Acetaminophen ([place]) 5-325 mg tablet Discontinued 1 TAB PO [...] day(s), # 21 tab(s), Refills(s) 0, [id number] 157, cm, 01/16/25 17:56:00 EST, [...] day(s), # 9 tab(s), Refills(s) 0, Pharmacy: [id number], 160, cm, 03/13/24 17:38:00 EDT, [...] food, # 20 tab(s), Refills(s) 0, Pharmacy: [facility] #[id number], 157, cm, 01/16/25 17:56:00 EST, Height/Length [...] nausea/vomiting, # 10 tab(s), Refills(s) 0, Pharmacy: [facility][id number], 157, cm, 01/16/25 17:56:00 EST, Height/Length Dosing, 95, kg, 01/16/25 17:56:00 EST, Weight Dosing Start Date: 01/16/25 Status: Ordered Start: 07-30-2024 take 1 tablet by kathe th every eight hours as needed for nausea promethazine 12.5 mg oral tablet 12.5 mg = 1 tab(s), Oral, q8hr, PRN as needed for nausea/vomiting, second line, # 10 tab(s), Refills(s) 0, Pharmacy: [facility]/pharm[facility] #[id number], 157, cm, 07/30/24 19:37:00 EDT, Height/Length Dosing, 96.1, kg, 07/30/24 19:37:00 EDT, Weight Dosing Start Date: 07/30/24 Status: Ordered Start: 07-30-2024 take 12.5 mg rectal route every eight hours as needed for nausea Phenergan 12.5 mg Supp 12.5 mg = 1 supp, Rectal, q8hr, PRN as needed for nausea/vomiting, 3rd line, # 6 EA, Refills(s) 0, [id number] 157, cm, 07/30/24 [...] 25 mg supposito ry Discontinued 25 MG AK Q6H as needed for Nausea January 02, [...] 25 mg supposito ry Discontinued 25 MG AK Q6H as needed for nausea and vomiting [...] 12.5 mg supposi tory Discontinued 12.5 MG AK Once September 30, 2021 12:00am October 08, 2021 9:34pm Start: 09-30-2021 End: 10-08-2021 Promethazine Discontinued 12 .5 MG AK Once September 30, 2021 12:00am October 08, [...] (Phenergan) 25 mg suppository Discontinued 25 MG AK Q4H as needed for nausea and vomiting [...] (Phenergan) 25 mg suppository Discontinued 25 MG AK Q8H as needed for nausea and vomiting February 13, 2018 12:00am March 13, 2018 10:44pm Start: 01-03-2018 End: 10-16-2018 Promethazine 25 mg supposito ry Discontinued 25 MG AK Q6H as needed for Nausea April 23, [...] Nausea/Vomiting, # 16 tab(s), Refills(s) 0, Pharmacy: [facility] #[id number], 157, cm, 07/30/24 19:37:00 EDT, [...] every 4-6 hrs for 5 days SANTO: [id number] Apr, Active take 1 tablet by kathe th every six hours oxyCODONE-Acetaminophen 5-325 MG 1 tablet as needed Orally every 6 hrs Active [id number] 200 actuat albuterol 0.09 mg/actuat metered dose [...] / neomycin 3.5 mg/ml / polymyxin b 39915 unt/ml otic suspension (20 sources) Aminoglycoside Antibacterial, Polymyxin-class Antibacterial, Corticosteroid Start: 10-31-2017 End: 12-21-2017 Tpkcwjry-Sqsbezukb-Nt 3.5-10,000-1 mg/mL-unit/mL-% drops,suspension Discontinued 3 DROPS OTIC [...] 11, 2019 1:00am January 12, 2021 1:35pm Uowglaod-Uxq-Ckzkqbp Fumarate (Multi Vitamin) 9 mg iron/15 mL Liquid (17 sources) Start: 09-30-20 End: 07-19-20 take 1 tablet by mouth once daily Ghrsacsg-Icj-Xolqdot Fumarate (Multi Vitamin) 9 mg iron/15 mL Liquid Discontinued 1 TAB PO Daily September 29, 2019 11:00pm July 19, 2021 1:07pm Start: 09-30-2019 End: 07-19-2021 take 1 tablet by mouth once daily Xxjesdcb-Zry-Vokevxe Fumarate (Multi Vitamin) 9 mg iron/15 mL [...] End: 03-13-2018 Oxymetazoline (Afrin (Oxymetazoline)) 0.05 % [place]uel[place],Non-Aerosol Discontinued 2 SPRAY INTRANASAL Q12H December 23, [...] 2022 11:25am administer with food or milk Prenat.Vits,Noe,Lnq-Rgrz-Orj ic (14 sources) Start: 02-06-2022 End: 03-08-2022 take 1 tablet by mouth once daily Prenat.Vits,Noe,Fjv-Ufle-Ugumr Discontinued 1 TAB PO Daily 60 February 06, 2022 12:00am March 08, 2022 7:15pm Start: 02-06-2022 End: 03-08-2022 take 1 tablet by mouth once daily Prenat.Vits,Noe,Ywu-Uvij-Ljmqt Discontin ued 1 TAB PO Daily 60 February 06, 2022 1:00am March 08, 2022 8:15pm Prenat.Vits,Noe,Rhr-Vqbs-Arl ic tablet (3 sources) Start: 02-06-2022 End: 03-08-2022 take 1 tablet by mouth once daily Prenat.Vits,Noe,Ehn-Qdch-Etefb tablet Discontinued 1 TAB PO Daily 60 February 06, 2022 1:00am March 08, 2022 8:15pm Start: 02-06-2022 End: 03-08-2022 take 1 tablet by mouth once daily Prenat.Vits,Noe,Snm-Dyxs-Ovgjb tablet Discontinued 1 TAB PO Daily 60 February 06, 2022 12:00am March 08, 2022 7:15pm Vit No.025-Ocbe-Cxvpx ( Vitamin) 27 mg iron- 800 mcg tablet (17 sources) Start: 06-08-2022 End: 08-18-2022 take 1 tablet by mouth once daily Vit No.881-Tatd-Vsbfp ( Vitamin) 27 mg iron- 800 mcg tablet Discontinued 1 TAB PO Daily June 07, 2022 11:00pm August 18, 2022 11:33am Start: 06-08-2022 End: 08-18-2022 take 1 tablet by mouth once daily Vit No.093-Byaf-Leliy ( Vitamin) 27 mg iron- 800 mcg tablet Discontinued 1 TAB PO Daily June 08, 2022 12:00am August 18, 2022 12:33pm Start: 06-08-2022 take 1 tablet by kathe th once daily Vit No.551-Dtaz-Isako ( Vitamin) 27 mg iron- 800 mcg [...] / K92.0(ICD-10) Onset: 7 Unclassified (1 source) 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 Normal [facility] Comment on above: Performed By: #### C UU #### [place] [id number] Urine Cultureon 05-04-2025 Bacteria identified Cx Nom (U) <9,000 colonies/ml mixed bacterial skin contaminants 2 Days PERFORMED BY: [place] [address] PATHOLOGIST LACQUER POLISHER FRAN NUNEZ M.D. Normal [facility] Comment on above: Performed By: #### C UU #### [facility] [address] [place] [address] Urine cultureOrdered By: Phi Dahl on 05-04-2025 Bacteria identified Cx Nom (U) Urine culture [facility] Urine Cultureon 01-23-2025 Bacteria identified Cx Nom (U) >100,000 colonies/ml mixed bacterial skin contaminants 2 Days PERFORMED BY: [place] [address] PATHOLOGIST LACQUER POLISHER IDANIA GODOY M.D. Normal [facility] Comment on above: Performed By: #### C UU #### [address] Abdomen/Pelvis w/ Contras ton 01-17-2025 [...] MD Transcribed by: KIRA Technologist: FABIÁN Edmond [facility] CT Chest w/ Contraston 01-17 CT Chest [...] Dolan MD Transcribed by: KIRA Technologist: [facility] CT Head or Brain w/o Contras [...] Dolan MD Transcribed by: KIRA Technologist: [facility] CT Spine Cervical w/o Contra ston [...] MD Transcribed by: KIRA Technologist: FABIÁN Edmond [facility] ED Note-Physicianon 01-17-20 ED Note-Physician ED Note-Physician [...] Diagnosis: [] [facility] Data External documents reviewed: [] My EKG [...] day(s), # 21 tab(s), Refills(s) 0, Pharmacy: [facility]/pharmacy #[id number], 157, cm, 01/16/25 17:56:00 EST, Height/Length [...] food, # 20 tab(s), Refills(s) 0, Pharmacy: [facility]/pharm[facility] #[id number], 157, cm, 01/16/25 17:56:00 EST, Height/Length Dosing, 95, kg, 01/16/25 17:56:00 EST, Weight Dosing promethazine, 12.5 mg = 0.5 tab(s), Tab, Oral, Once, Stop date 01/16/25 19:41:00 EST, STAT, Start date 01/16/25 19:41:00 EST, 01/16/25 19:41:00 EST promethazine, 12.5 mg = 1 tab(s), Oral, q6hr, PRN for nausea/vomiting, # 10 tab(s), Refills(s) 0, Pharmacy: [facility]/pharmacy #[id number], 157, cm, 01/16/25 17:56:00 EST, Height/Length Dosing, 95, kg, 01/16/25 17:56:00 EST, Weight Dosing ABO/Rh ABO/Rh History Check Antibody Screen Basic Metabolic Panel Beta hCG Qual Blood Bank ID# CBC w/ Auto Diff CT Abdomen/Pelvis w/ Contrast CT Chest w/ Contrast CT Head or Brain w/o Cont (more content not included)... [facility] Comment on above: Result Comment: [...] Araya DO Transcribed by: KIRA Technologist: DES [facility] XR Knee Complete 4+ Views Leidy [...] DO Transcribed by: KIRA Technologist: AMD Normal [facility] ABO/Rhon 01-16-2025 ABO/Rh Positive Invalid Interpretation Code [facility] Comment on above: Performed By: #### 2 [id number] #### [facility] [address] [place] [address] ABO/Rh History Checkon 01-16 ABO/Rh History Check Verified Hx Blood Type Normal [facility] Comment on above: Performed By: #### 1 [id number] #### [facility] [address] [place] [address] ABSCon 01-16-2025 ABSC Gel Interp Negative Normal [facility] Comment on above: Performed By: #### 1 [id number] #### [facility] [address] [place] [address] B hCG Qualon 01-16-2025 Beta HCG ( test) Ql Negative Normal [facility] Comment on above: Performed By: #### 2 [id number] #### [facility] [address] [place] [address] BLOOD BANKOrdered By: Ti Mccain on 01-16-2025 ABO/Rh Interp Positive Invalid Interpretation Code [facility] BB Subsection ABSC Gel Interp Negative (01/16/25 7:26 PM) Normal [facility] BB Subsection BMPon 01-16-2025 Anion gap [Moles/Vol] 20 mmol/L High 6-16 [facility] Comment on above: Performed By: #### 2 [id number] #### [facility] [address] [place] [address] Calcium [Mass/Vol] 10.9 mg/dL Normal 8.9-11.1 [facility] Comment on above: Performed By: #### 2 [id number] #### [facility] [address] [place] [address] Chloride [Moles/Vol] 101 mmol/L Normal 101-111 [facility] Comment on above: Performed By: #### 2 [id number] #### [facility] [address] [place] [address] CO2 [Moles/Vol] 22 mmol/L Normal 21-31 [facility] Comment on above: Performed By: #### 2 [id number] #### [facility] [address] [place] [address] Creatinine [Mass/Vol] 0.9 mg/dL Normal 0.5-1.3 [facility] Comment on above: Performed By: #### 2 [id number] #### [facility] [address] [place] [address] Glucose [Mass/Vol] 116 mg/dL Normal 55-199 [facility] Comment on above: Performed By: #### 2 [id number] #### [facility] [address] [place] [address] Potassium [Moles/Vol] 3.3 mmol/L Low 3.5-5.3 [facility] Comment on above: Performed By: #### 2 [id number] #### [facility] [address] [place] [address] Sodium [Moles/Vol] 140 mmol/L Normal 135-145 [facility] Comment on above: Performed By: #### 2 [id number] #### [facility] [address] [place] [address] Urea nitrogen [Mass/Vol] 23 mg/dL High 5-21 [facility] Comment on above: Performed By: #### 2 [id number] #### [facility] [address] [place] [address] Urea nitrogen/Creatinine [Mass ratio] 26 No Units High 10-20 [facility] Comment on above: Performed By: #### 2 [id number] #### [facility] [address] [place] [address] Blood Bank ID#on 01-16-2025 BBID# [id number] Invalid Interpretation Code [facility] Comment on above: Performed By: #### 1 [id number] #### [facility] [address] [place] [address] CBC w/ Auto Diffon 5 Basophils/100 WBC (Bld) 0.3 % Normal 0.0-2.0 [facility] Comment on above: Performed By: #### 2 [id number] #### [facility] [address] [place] [address] Basophils/Leukocytes Auto (Bld) [Pure # fraction] 0.0 E9/L Normal 0.0-0.2 [facility] Comment on above: Performed By: #### 2 [id number] #### [facility] [address] [place] [address] Eosinophils (Bld) [#/Vol] 0.0 E9/L Normal 0.0-0.5 [facility] Comment on above: Performed By: #### 2 [id number] #### [facility] [address] [place] [address] Eosinophils/100 WBC (Bld) 0.0 % Normal 0.0-8.0 [facility] Comment on above: Performed By: #### 2 [id number] #### [facility] [address] [place] [address] Erythrocyte distribution width (RBC) [Ratio] 13.7 % Normal 10.9-14.2 [facility] Comment on above: Performed By: #### 2 136620 #### [facility] [address] [place] [address] Hematocrit (Bld) [Volume fraction] 46.9 % High 34.0-46.0 [facility] Comment on above: Performed By: #### 2 [id number] #### [facility] [address] [place] [address] Hemoglobin (Bld) [Mass/Vol] 16.0 g/dL Normal 12.0-16.0 [facility] Comment on above: Performed By: #### 2 [id number] #### [facility] [address] [place] [address] Lymphocytes (Bld) [#/Vol] 1.4 E9/L Normal 1.0-4.0 [facility] Comment on above: Performed By: #### 2 [id number] #### [facility] [address] [place] [address] Lymphocytes/100 WBC (Bld) 11.6 % Low 14.0-50.0 [facility] Comment on above: Performed By: #### 2 [id number] #### [facility] [address] [place] [address] MCH (RBC) [Entitic mass] 28.8 pg Normal 27.0-34.0 [facility] Comment on above: Performed By: #### 2 [id number] #### [facility] [address] [place] [address] MCHC (RBC) [Mass/Vol] 34.1 g/dL Normal 31.4-36.0 [facility] Comment on above: Performed By: #### 2 784851 #### [facility] [address] [place] [address] MCV (RBC) [Entitic vol] 84.3 fL Normal 80.0-100.0 [facility] Comment on above: Performed By: #### 2 [id number] #### [facility] [address] [place] [address] Monocytes (Bld) [#/Vol] 0.6 E9/L Normal 0.2-1.0 [facility] Comment on above: Performed By: #### 2 [id number] #### [facility] [address] [place] [address] Neutrophils (Bld) [#/Vol] 10.0 E9/L High 2.0-7.5 [facility] Comment on above: Performed By: #### 2 [id number] #### [facility] [address] [place] [address] Neutrophils/100 WBC (Bld) 83.4 % High 36.0-75.0 [facility] Comment on above: Performed By: #### 2 [id number] #### [facility] [address] [place] [address] Platelet mean volume (Bld) [Entitic vol] 8.9 fL Normal 6.4-10.8 [facility] Comment on above: Performed By: #### 2 [id number] #### [facility] [address] [place] [address] Platelets (Bld) [#/Vol] 300.0 E9/L Normal 150.0-500. 0 [facility] Comment on above: Performed By: #### 2 [id number] #### [facility] [address] [place] [address] RBC (Bld) [#/Vol] 5.6 E12/L Normal 4.3-5.9 [facility] Comment on above: Performed By: #### 2 [id number] #### [facility] [address] [place] [address] WBC corrected for nucl RBC Auto (Bld) [#/Vol] 12.0 E9/L High 4.0-11.0 [facility] Comment on above: Performed By: #### 2 [id number] #### [facility] [address] [place] [address] CHEMISTRYOrdered By: SYSTEM SYSTEM on 01-16-2025 Albumin [...] Sensitivity Troponin I Instructions For Use, [place], June 2018) Urea nitrogen [Mass/Vol] 23 mg/dL High 5 - 21 mg/dL Remisol [facility] Urea nitrogen/Creatinine [Mass ratio] 26 mg/mg High 10 - 20 [facility] COAGULATIONOrdered By: Luisa Morrell on 01-16-2025 aPTT Coag (PPP) [Time] 23.1 s Low 25.1 - 36.5 second(s) [facility] Auto Coag Comment on above: Interpretive Data: [...] the same coagulation reagent and instrumentation as [facility]. Currently there are no coagulation studies available worldwide for children to 14 days, and no normal ranges. Heparin therapeutic range (represented by Anti-Factor Xa activity of 0.2 - 0.4 U/mL) corresponds to PTT of 56.6 - 109.0 sec. INR Coag (PPP) [Relative time] 1.10 {INR} Invalid Interpretation Code [facility] Auto Coag Comment on above: Interpretive Data: I NR results are specifically intended to assess patients stabilized on long-term Anticoagulation therapy suggested INR s Less Intensive Anticoagulation 2.0 3.0 Conventional Range 3.0 4.5 PT Coag (PPP) [Time] 12.3 s Normal 9.4 - 1 2.5 second(s) [facility] Auto Coag Comment on above: Interpretive Data: [...] the same coagulation reagent and instrumentation as [facility]. Currently there are no coagulation studies available worldwide for children to 14 days, and no normal ranges. ED Clinical Summaryon 2024 ED Clinical Summary ED Clinical Summary [address] [address] ED Clinical Summary Person Information [facility]: [facility] Age[facility] 19 Years : 2005 Sex: Female Language: Tongan PCP: MODESTA CHAND CNP Marital Status: Single [...] 01/16/2025 20:36:16 01/16/2025 20:36:16 ADDRESS: [address] [id number] PHYS DOC NOTES: MEDICAL INFORMATION: Prescriptions Given: New Medications [facility]/pharmacy #[id number], [address], [place] [id number], [phone] cyclobenzaprine (cyclobenzaprine 5 mg Tab) 1 Tablets By Mouth 3 times a day for 7 Days. Refills: 0. Medications to Continue Taking That Have Changed [facility]/pharmacy #[id number], [address], [place] [id number], [phone] START: naproxen (naproxen 500 mg Tab) 1 [...] Contusion; Fall Prevention in the Home, Adult, Memb-yr-Gpdi Follow up: With: Address: When: MODESTA NIKUNJ [address] [place] [phone] [facility] (1) In 3 days 2025 Comments: Call Dr for diagnosis based follow up DIAGNOSIS: Abdominal contusion; Fall down steps; Knee contusion Normal [facility] ED Patient Summaryon 025 ED Patient Summary ED Patient Summary [address] [address] Patient Discharge Instructions Person Information Name: PILI PARIKH Age: 19 Years Arrival Date: 01/16/2025 17:51:31 Discharge Diagnosis: Abdominal contusion; Fall down steps; Knee contusion Primary Care Physician: MODESTA CHAND CNP Provider Information Primary Provider: August Bermudez M.D. Advanced Crew Truck Driver:Rashaad Albrecht PA-C The exam and treatment you received in the Emergency Department were for an urgent problem and are not intended as complete care. It is important that you follow up with a doctor, nurse practitioner, or physician???s project assistant for ongoing care. If your symptoms [...] Instructions: With: Address: When: MODESTA CHAND [address] [place] [phone] [facility] (1) In 3 days 2025 Comments: Call Dr for diagnosis based follow up In the event that this physician does not participate in your insurance network, please consult with your insurance company to find a nearby participating provider. Patient Education Materials: RICE Therapy for Routine Care of Injuries; Contusion; Fall Prevention in the Home, Adult, Tobd-jq-Zizo A MESSAGE TO ALL PATIENTS REGARDING OPIOIDS PRESCRIPTION OPIOIDS: WHAT YOU NEED TO KNOW Prescription opioids can be used to help relieve clcdteyz-ai-qjhhqw pain and are often prescribed following a [...] ??? Visit (more content not included)... Normal [facility] Ethanolon 01-16-2025 Ethanol Lvl <10 Normal <=11 [facility] Comment on above: Performed By: #### 2 [id number] #### [facility] [address] [place] [address] HEMATOLOGYOrdered By: SYSTEM SYSTEM on 01-16-2025 Basophils/100 [...] 01-16-2025 Albumin [Mass/Vol] 5.5 g/dL High 3.3-5.0 [facility] Comment on above: Performed By: #### 2 [id number] #### [facility] Laboratory [address] [place] [address] Albumin/Globulin (S) [Mass conc ratio] 1.5 Normal 1.1-2.2 [facility] Comment on above: Performed By: #### 2 [id number] #### [facility] Laboratory [address] [place] [address] ALP [Catalytic activity/Vol] 71 Int._Unit/L Normal 21-98 [facility] Comment on above: Performed By: #### 2 [id number] #### [facility] Laboratory [address] [place] [address] ALT No additional P-5'-P [Catalytic activity/Vol] 42 Int._Unit/L Normal 6-46 [facility] Comment on above: Performed By: #### 2 [id number] #### [facility] Laboratory [address] [place] [address] AST [Catalytic activity/Vol] 19 Int._Unit/L Normal 5-43 [facility] Comment on above: Performed By: #### 2 [id number] #### [facility] Laboratory [address] [place] [address] Bilirubin [Mass/Vol] 1.0 mg/dL Normal 0.0-1.1 [facility] Comment on above: Performed By: #### 2 [id number] #### [facility] Laboratory [address] [place] [address] Bilirubin.direct [Mass/Vol] 0.2 mg/dL Normal 0.0-0.4 [facility] Comment on above: Performed By: #### 2 [id number] #### [facility] Laboratory [address] [place] [address] Bilirubin.indirect [Mass or moles/Vol] 0.8 mg/dL Normal 0.1-0.9 [facility] Comment on above: Performed By: #### 2 [id number] #### [facility] Laboratory [address] [place] [address] Globulin (S) [Mass/Vol] 3.6 g/dL Normal 1.4-4.0 [facility] Comment on above: Performed By: #### 2 [id number] #### [facility] Laboratory [address] [place] [address] Protein [Mass/Vol] 9.1 g/dL High 6.0-7.8 [facility] Comment on above: Performed By: #### 2 [id number] #### [facility] Laboratory [address] [place] [address] Lactic Acidon 01-16-2025 Lactic Acid Lvl 1.6 mmol/L Normal 0.5-2.2 [facility] Comment on above: Performed By: #### 2 [id number] #### [facility] Laboratory [address] [place] [address] Lipase Levelon 01-16-2025 Lipase [Catalytic activity/Vol] 8 U/L Low 13-58 [facility] Comment on above: Performed By: #### 2 [id number] #### [facility] Laboratory [address] [place] [address] PT & PTTon 01-16-2025 aPTT Coag (PPP) [Time] 23.1 second(s) Low 25.1-36.5 [facility] Comment on above: Result Comment: Para meter [...] the same coagulation reagent and instrumentation as [facility]. Currently there are no coagulation studies available worldwide for children to 14 days, and no normal ranges. Heparin therapeutic range (represented by Anti-Factor Xa activity of 0.2 - 0.4 U/mL) corresponds to PTT of 56.6 - 109.0 sec. Performed By: #### 1 [id number] #### [facility] Laboratory [address] [place] [address] INR Coag (PPP) [Relative time] 1.10 {INR} Invalid Interpretation Code [facility] Comment on above: Result Comment: INR results are specifically intended to assess patients stabilized on long-term Anticoagulation therapy suggested INR???s ???Less Intensive Anticoagulation??? 2.0 ??? 3.0 Conventional Range 3.0 ??? 4.5 Performed By: #### 1 [id number] #### [facility] Laboratory [address] [place] [address] PT Coag (PPP) [Time] 12.3 second(s) Normal 9.4-12.5 [facility] Comment on above: Result Comment: 15 d [...] the same coagulation reagent and instrumentation as [facility]. Currently there are no coagulation studies available worldwide for children to 14 days, and no normal ranges. Performed By: #### 1 [id number] #### [facility] Laboratory [address] [place] [address] Pre-Arrival Noteon Pre-Arrival Note Pre-Arrival Note Pre-Arrival Summary Name: , quincyjermaine Current Date: 01/16/2025 17:51:59 EST Gender: Female Date of : Age: 19 Pre-Arrival Type: EMS ETA: 01/16/2025 18:12:00 EST Primary Care Physician: Presenting Problem: fall Pre-Arrival User: Referring Source: Location: Completion Date/Time: 01/16/2025 17:42:00 [facility] Emergency Department Pre-Hospital Report Form Vital Signs: Pre-Hospital Report: Treatment in Route: Response to Treatment: Misc. Issues: Normal [facility] SEROLOGYOrdered By: Ghazal merida on 01-16-2025 Beta HCG ( test) Ql Negative (01/16/25 7:26 PM) Normal [facility] Man Sero Troponinon 01-16-2025 Troponin HS 3.40 pg/mL Low 10.10-27.1 0 [facility] Comment on above: Result Comment: The 95% CI (Confidence Interval) PPV (Positive Predictive Value) for myocardial infarction in females is 38 pg/mL, in males 51 pg/mL. The results should be used in conjunction with clinical conditions of myocardial infarction. (Access High Sensitivity Troponin I Instructions For Use, Sugar Sundar, June 2018) Performed By: #### 2 [id number] #### [facility] Laboratory [address] [place] [address] eGFRon 01-16-2025 eGFR 93 mL/min/1.73 m2 Normal >=59 [facility] Comment on above: Performed By: #### 1 [id number] #### [facility] Laboratory [address] [place] [address] Alanine aminotransferase [En zymatic activity/volume] in Serum or PlasmaOrdered By: Rd Brown on 10-28-2024 ALT [Catalytic activity/Vol] Alanine aminotransferase [Enzymatic activity/volume] in Serum or Plasma 7 [facility] Albumin [Mass/volume] in Ser um or Plasma by Bromocresol green (BCG) dye binding methoOrdered By: Rd Brown on 10-28-2024 Albumin BCG dye [Mass/Vol] Albumin [Mass/volume] in Serum or Plasma by Bromocresol green (BCG) dye binding metho 3.5-5.7 [facility] Alkaline phosphatase [Enzyma tic activity/volume] in Serum or PlasmaOrdered By: Rd Brown on 10-28-2024 ALP [Catalytic activity/Vol] Alkaline phosphatase [Enzymatic activity/volume] in Serum or Plasma 34-104 [facility] Amphetamine Screen Ql (U)Ord ered By: Rd Brown on 10-28-2024 Amphetamines Ql (U) Amphetamines screen Negativ e [facility] Appearance of UrineOrdered B y: Rd Brown on 10-28-2024 Appearance (U) Urine appearance Abnormal Clear [facility] Aspartate aminotransferase [ Enzymatic activity/volume] in Serum or PlasmaOrdered By: Rd Brown on 10-28-2024 AST [Catalytic activity/Vol] Aspartate aminotransferase [Enzymatic activity/volume] in Serum or Plasma 39 [facility] Bacteria [Presence] in Urine by AutomatedOrdered By: Rd Brown on 10-28-2024 Bacteria Auto Ql (U) Bacteria [Presence] in Urine by Automated High None Seen [facility] Barbiturates [Presence] in U rine by Screen methodOrdered By: Rd Brown on 10-28-2024 Barbiturates Screen Ql (U) Barbiturates [Presence] in Urine by Screen method Negative [facility] Basic Metabolic Panelon 12-0 Anion gap [Moles/Vol] 19.5 mmol/L High 6.0-15.0 [facility] Comment on above: Performed By: #### C UU #### [address] Calcium [Mass/Vol] 10.4 mg/dL High 8.6-10.3 [facility] Comment on above: Performed By: #### C UU #### [address] Chloride [Moles/Vol] 94 mmol/L Low 98-107 [facility] Comment on above: Performed By: #### C UU #### [address] CO2 [Moles/Vol] 26.3 mmol/L Normal 21.0-31.0 [facility] Comment on above: Performed By: #### C UU #### [place] [address] [place] Creatinine [Mass/Vol] 0.91 mg/dL Normal 0.60-1.20 [facility] Comment on above: Performed By: #### C UU #### [place] [address] [place] Creatinine Clr Calc Pharmacy 104.62 Normal [facility] Comment on above: Performed By: #### C UU #### [place] [address] [place] GFR/1.73 sq M.predicted MDRD (S/P/Bld) [Vol rate/Area] mL/min/{1.73_m2} Normal [facility] Comment on above: Performed By: #### C UU #### [address] Glucose [Mass/Vol] 91 mg/dL Normal 70-100 [facility] Comment on above: Result Comment: [place] Glucose Reference Range is dependent on time and content of last meal. Glucose of more than 200 mg/dL in a nonstressed, ambulatory subject supports the diagnosis of Diabetes Mellitus. ADA recommended reference range Performed By: #### C UU #### [address] Potassium [Moles/Vol] 2.8 mmol/L Off scale low 3.5-5.1 [facility] Comment on above: Result Comment: Crit ical Result Called to and read back by: MATT BUSH at: 10/28/2024 19:29:56 by:[id number] Performed By: #### C UU #### [address] Sodium [Moles/Vol] 137 mmol/L Normal 136-145 [facility] Comment on above: Performed By: #### C UU #### [address] Urea nitrogen [Mass/Vol] 21 mg/dL Normal 7-25 [facility] Comment on above: Performed By: #### C UU #### [address] Basophils Auto (Bld) [#/Vol] Ordered By: Rd Brown on 10-28-2024 Basophils (Bld) [#/Vol] Automated basophil count 0.0-0.2 [facility] Basophils/100 WBC Auto (Bld) Ordered By: Rd Brown on 10-28-2024 Basophils/100 WBC (Bld) Automated basophil % . [facility] Benzodiazepines Screen Ql (U )Ordered By: Rd Brown on 10-28-2024 Benzodiazepines Ql (U) Benzodiazepines [ Presence] in Urine by Screen method Negative [facility] Benzoylecgonine [Presence] i n Urine by Screen methodOrdered By: Rd Brown on 10-28-2024 Benzoylecgonine Screen Ql (U) Benzoylecgonine [Presence] in Urine by Screen method Negative [facility] Bilirubin Test strip Ql (U)O rdered By: Rd Brown on 10-28-2024 Bilirubin Ql (U) Bilirubin.total [Pre sence] in Urine by Test strip Negative [facility] Bilirubin.direct [Mass/volum e] in Serum or PlasmaOrdered By: Rd Brown on 10-28-2024 Bilirubin.direct [Mass/Vol] Bilirubin.direct [Mass/volume] in Serum or Plasma High 0.03-0.18 [facility] Bilirubin.total [Mass/volume ] in Serum or PlasmaOrdered By: Rd Brown on 10-28-2024 Bilirubin [Mass/Vol] Bilirubin.total [Mass/volume] in Serum or Plasma High 0.3-1.0 [facility] Calcium [Mass/volume] in Ser um or PlasmaOrdered By: Rd Brown on 10-28-2024 Calcium [Mass/Vol] Calcium [Mass/volume ] in Serum or Plasma High 8.6-10.3 [facility] Cannabinoids [Presence] in U rine by Screen methodOrdered By: Rd Brown on 10-28-2024 Cannabinoids Screen Ql (U) Cannabinoids [Presence] in Urine by Screen method High Negative [facility] Comment on above: These are unconfirme [...] l [Moles/volume] in Serum or Plasma 21.0-31.0 [facility] Chloride [Moles/volume] in [place] or PlasmaOrdered By: Rd Brown on 10-28-2024 Chloride [Moles/Vol] Chloride [Moles/vol ume] in Serum or Plasma Low 98-107 [facility] Color Auto (U)Ordered By: Andrew Brown on 10-28-2024 Color (U) Color of Urine by Auto Abnormal Yellow Fi [facility] Complete Blood Count Auto Di ffon 10-28-2024 Basophils (Bld) [#/Vol] 0.1 10*3/uL Normal 0.0-0.2 [facility] Comment on above: Result Comment: PERF ORMED BY: [place] [address] PATHOLOGIST [employer] IDANIA GODOY M.D. Performed By: #### C UU #### [address] Basophils/100 WBC (Bld) 0.7 % Normal . [facility] Comment on above: Performed By: #### C UU #### [address] Eosinophils (Bld) [#/Vol] 0.1 10*3/uL Normal 0.0-0.45 [facility] Comment on above: Performed By: #### C UU #### [address] Eosinophils/100 WBC (Bld) 0.6 % Normal . [facility] Comment on above: Performed By: #### C UU #### [address] Erythrocyte distribution width (RBC) [Ratio] 13.4 % Normal 11.9-15.3 [facility] Comment on above: Performed By: #### C UU #### [address] Hematocrit (Bld) [Volume fraction] 49.2 % High 34.0-46.4 [facility] Comment on above: Performed By: #### C UU #### [address] Hemoglobin (Bld) [Mass/Vol] 16.5 g/dL High 11.8-15.4 [facility] Comment on above: Performed By: #### C UU #### [address] Lymphocytes (Bld) [#/Vol] 2.9 10*3/uL Normal 1.00-4.8 [facility] Comment on above: Performed By: #### C UU #### [address] Lymphocytes/100 WBC (Bld) 14.7 % Normal . [facility] Comment on above: Performed By: #### C UU #### [address] MCH (RBC) [Entitic mass] 28.7 pg Normal 24.7-34.3 [facility] Comment on above: Performed By: #### C UU #### [address] MCV (RBC) [Entitic vol] 85.7 fL Normal 80-100 [facility] Comment on above: Performed By: #### C UU #### [address] Mean Corpuscular HGB Conc 33.5 g/dL Normal 32.0-35.0 [facility] Comment on above: Performed By: #### C UU #### [address] Monocytes (Bld) [#/Vol] 1.2 10*3/uL High 0.0-0.8 [facility] Comment on above: Performed By: #### C UU #### [address] Monocytes/100 WBC (Bld) 16.96 % Normal 0.00-20.00 [facility] Comment on above: Performed By: #### C UU #### [address] Monocytes/100 WBC (Bld) 5.9 % Normal . [facility] Comment on above: Performed By: #### C UU #### [address] [place] [address] [place] Neutrophils (Bld) [#/Vol] 15.5 10*3/uL High 1.8-7.7 [facility] Comment on above: Performed By: #### C UU #### [address] Neutrophils/100 WBC (Bld) 78.1 % Normal . [facility] Comment on above: Performed By: #### C UU #### [address] NRBC% 0.1 /100{WBC} Normal 0-0.5 [facility] Comment on above: Performed By: #### C UU #### [address] Platelet mean volume (Bld) [Entitic vol] 8.4 fL Normal 6.3-10.7 [facility] Comment on above: Performed By: #### C UU #### [place] [address] [place] Platelets (Bld) [#/Vol] 333 10*3/uL Normal 150-450 [facility] Comment on above: Performed By: #### C UU #### [address] RBC (Bld) [#/Vol] 5.74 10*6/uL High 3.60-5.00 [facility] Comment on above: Performed By: #### C UU #### [address] WBC (Bld) [#/Vol] 19.8 10*3/uL High 3.8-11.6 [facility] Comment on above: Performed By: #### C UU #### [address] Creatinine [Mass/volume] in Serum or PlasmaOrdered By: Rd Brown on 10-28-2024 Creatinine [Mass/Vol] Creatinine [Mass/v olume] in Serum or Plasma 0.60-1.20 [facility] Dipstick and Microscopicon 1 12-29-2023 Appearance (U) Turbid Critically abnormal Clear [facility] Comment on above: Order Comment: Name Collection Type:: Clean-Voided Midstream Performed By: #### C UU #### [facility] [address] [place] [address] [place] Bacteria,Urine 1+ High None Seen [facility] Comment on above: Order Comment: Name Collection Type:: Clean-Voided Midstream Performed By: #### C UU #### [place] [address] [place] Bilirubin,Urine Negative Normal Negative [facility] Comment on above: Order Comment: Name Collection Type:: Clean-Voided Midstream Performed By: #### C UU #### [place] [address] [place] Color (U) [place] Critically abnormal Yellow [facility] Comment on above: Order Comment: Name Collection Type:: Clean-Voided Midstream Performed By: #### C UU #### [place] [address] [place] Glucose Ql (U) Normal Normal Normal [facility] Comment on above: Order Comment: Name Collection Type:: Clean-Voided Midstream Performed By: #### C UU #### [place] [address] [place] Hyaline Casts,Urine 9 [LPF] High 0-8 [facility] Comment on above: Order Comment: Name Collection Type:: Clean-Voided Midstream Performed By: #### C UU #### [place] [address] [place] Ketones Ql (U) 3+ High Negative [facility] Comment on above: Order Comment: Name Collection Type:: Clean-Voided Midstream Performed By: #### C UU #### [place] [address] [place] Leukocyte esterase Test strip Ql (U) 3+ High Negative [facility] Comment on above: Order Comment: Name Collection Type:: Clean-Voided Midstream Performed By: #### C UU #### [facility] [address] [place] [address] [place] Mucus,Urine 4+ Critically abnormal [facility] Comment on above: Order Comment: Name Collection Type:: Clean-Voided Midstream Performed By: #### C UU #### [place] [address] [place] Nitrite,Urine Negative Normal Negative [facility] Comment on above: Order Comment: Name Collection Type:: Clean-Voided Midstream Performed By: #### C UU #### [address] Occult Blood,Urine 3+ High Negative [facility] Comment on above: Order Comment: Name Collection Type:: Clean-Voided Midstream Performed By: #### C UU #### [address] pH (U) 8.0 [pH] Normal 5.0-9.0 [facility] Comment on above: Order Comment: Name Collection Type:: Clean-Voided Midstream Performed By: #### C UU #### [place] [address] [place] Protein (U) [Mass/Vol] 100 mg/dL High Negative [facility] Comment on above: Order Comment: Name Collection Type:: Clean-Voided Midstream Performed By: #### C UU #### [place] [address] [place] RBC,Urine Innumerable High 0-4 [facility] Comment on above: Order Comment: Name Collection Type:: Clean-Voided Midstream Performed By: #### C UU #### [place] [address] [place] Specificy [place],Urine 1.029 Normal 1.001-1.03 0 [facility] Comment on above: Order Comment: Name Collection Type:: Clean-Voided Midstream Performed By: #### C UU #### [place] [address] [place] Squamous Epithelial Cell,Urine 1 [HPF] Normal 0-2 [facility] Comment on above: Order Comment: Name Collection Type:: Clean-Voided Midstream Performed By: #### C UU #### [address] Urobilinogen,Urine 6 mg/dL High Normal [facility] Comment on above: Order Comment: Name Collection Type:: Clean-Voided Midstream Performed By: #### C UU #### [address] WBC,Urine 50 [HPF] High 0-4 [facility] Comment on above: Order Comment: Name Collection Type:: Clean-Voided Midstream Performed By: #### C UU #### [address] Drug Screen,Urineon 10-28-20 24 Amphetamine Screen,Urine Negative Normal Negative [facility] Comment on above: Performed By: #### C K, PT, BNP, PTT, CBC, BMP, HS TROP #### [address] Barbiturate Screen,Urine Negative Normal Negative [facility] Comment on above: Performed By: #### C K, PT, BNP, PTT, CBC, BMP, HS TROP #### [address] Benzodiazepines Screen,Urine Negative Normal Negative [facility] Comment on above: Performed By: #### C K, PT, BNP, PTT, CBC, BMP, HS TROP #### [address] Cannabinoid Screen,Urine Positive High Negative [facility] Comment on above: Result Comment: Thes e are unconfirmed results and should not be used for legal purposes. Drug Cut-Off Concentration: AMPH 1000 ng/mL NIKOLAS 200 ng/mL SHRAVAN 200 ng/mL COCM 300 ng/mL OP 300 ng/mL PCP 25 ng/mL THC 20 ng/mL PERFORMED BY: [place] [address] PATHOLOGIST [employer] IDANIA GODOY M.D. Performed By: #### C K, PT, BNP, PTT, CBC, BMP, HS TROP #### [facility] [address] Cocaine Screen,Urine Negative Normal Negative [facility] Comment on above: Performed By: #### C K, PT, BNP, PTT, CBC, BMP, HS TROP #### [facility] [address] Opiate Screen,Urine Negative Normal Negative [facility] Comment on above: Performed By: #### C K, PT, BNP, PTT, CBC, BMP, HS TROP #### [facility] [address] Phencyclidine Screen,Urine Negative Normal Negative [facility] Comment on above: Performed By: #### C K, PT, BNP, PTT, CBC, BMP, HS TROP #### [facility] [address] ECG 12 lead ECGon 10-28-2024 ECG 12 lead ECG [facility] Main [place] [address] [place] [address] Electrocardiograph Report Signed Patient: Pili Parikh MR#: [id number] : 2005 Acct:[id number] Age/Sex: 19 / F ADM Date: 10/28/24 Loc: ER Room: Type: [facility] ER Attending Dr: Ordering Provider: [...] sinus rhythm Confirmed by Robert BOLANOS DO ([id number]) on 10/28/2024 9:48:18 PM Referred By: Electronically Signed By: Robert BOLANOS DO Transcribed By: MUS Signed By Robert Bolanos DO 12/29/232147 Normal [facility] Eosinophils Auto (Bld) [#/Vo l]Ordered By: Rd Brown on 10-28-2024 Eosinophils (Bld) [#/Vol] Automated eosinophil count 0.0-0.45 [facility] Eosinophils/100 WBC Auto (Bl d)Ordered By: Rd Brown on 10-28-2024 Eosinophils/100 WBC (Bld) Automated eosinophil % . [facility] Epithelial cells.squamous [# /area] in Urine sediment by Automated countOrdered By: Rd Brown on 10-28-2024 Epithelial cells.squamous Auto (Urine sed) [#/Area] Epithelial cells.squamous [#/area] in Urine sediment by Automated count 0-2 [facility] Erythrocyte distribution wid th Auto (RBC) [Ratio]Ordered By: Rd Brown on 10-28-2024 Erythrocyte distribution width (RBC) [Ratio] Erythrocyte distribution width [Ratio] by Automated count 11.9-15.3 [facility] Erythrocytes [#/area] in Uri ne sediment by Automated countOrdered By: Rd Brown on 10-28-2024 RBC Auto (Urine sed) [#/Area] Erythrocytes [#/area] in Urine sediment by Automated count High 0-4 [facility] Globulin Calc (S) [Mass/Vol] Ordered By: Rd Brown on 10-28-2024 Globulin (S) [Mass/Vol] Serum globulin measurement by calculation (mass/volume) [facility] Glucose [Mass/volume] in Ser um or PlasmaOrdered By: Rd Brown on 10-28-2024 Glucose [Mass/Vol] Glucose [Mass/volume ] in Serum or Plasma 70-100 [facility] Comment on above: ADA recommended refe [...] [Mass/volume] in Urine by Test strip Normal [facility] HCG ( test) IA.rapi d Ql (U)Ordered By: Rd Brown on 10-28-2024 HCG ( test) Ql (U) Urine human chorionic gonadotropin (hCG) detection by immunoassay [facility] HCG,Urineon 10-28-2024 Beta HCG ( test) Ql (U) Negative Normal [facility] Comment on above: Order Comment: Name Collection Type:: Clean-Voided Midstream Result Comment: PERF ORMED BY: [place] [address] PATHOLOGIST [employer] IDANIA GODOY M.D. Performed By: #### C UU #### [address] Hematocrit Auto (Bld) [Volum e fraction]Ordered By: Rd Brown on 10-28-2024 Hematocrit (Bld) [Volume fraction] Hematocrit [Volume Fraction] of Blood by Automated count High 34.0-46.4 [facility] Hemoglobin Test strip Ql (U) Ordered By: Rd Brown on 10-28-2024 Hemoglobin Ql (U) Hemoglobin [Presence ] in Urine by Test strip High Negative [facility] Hemoglobin [Mass/volume] in BloodOrdered By: Rd Brown on 10-28-2024 Hemoglobin (Bld) [Mass/Vol] Hemoglobin [Mass/volume] in Blood High 11.8-15.4 [facility] Hepatic Panelon 10-28-2024 Albumin [Mass/Vol] 5.4 g/dL Normal 3.5-5.7 [facility] Comment on above: Performed By: #### C UU #### [address] Albumin/Globulin [Mass ratio] 1.5 {ratio} Normal [facility] Comment on above: Performed By: #### C UU #### [place] [address] [place] ALP [Catalytic activity/Vol] 78 U/L Normal 34-104 [facility] Comment on above: Performed By: #### C UU #### [address] ALT [Catalytic activity/Vol] 48 U/L Normal 7-52 [facility] Comment on above: Performed By: #### C UU #### [address] AST [Catalytic activity/Vol] 30 U/L Normal 13-39 [facility] Comment on above: Performed By: #### C UU #### [address] Bilirubin [Mass/Vol] 1.1 mg/dL High 0.3-1.0 [facility] Comment on above: Performed By: #### C UU #### [address] Bilirubin,Indirect 0.9 mg/dL Normal [facility] Comment on above: Performed By: #### C UU #### [address] Bilirubin.indirect [Mass/Vol] 0.20 mg/dL High 0.03-0.18 [facility] Comment on above: Performed By: #### C UU #### [address] Globulin (S) [Mass/Vol] 3.5 g/dL Normal [facility] Comment on above: Performed By: #### C UU #### [address] Protein [Mass/Vol] 8.9 g/dL Normal 6.4-8.9 [facility] Comment on above: Performed By: #### C UU #### [address] Hyaline casts [#/area] in Ur ine sediment by Automated countOrdered By: Rd Brown on 10-28-2024 Hyaline casts Auto (Urine sed) [#/Area] Hyaline casts [#/area] in Urine sediment by Automated count High 0-8 [facility] Ketones Test strip Ql (U)Ord ered By: Rd Brown on 10-28-2024 Ketones Ql (U) Ketones [Presence] i n Urine by Test strip High Negative [facility] Leukocyte esterase [Presence ] in Urine by Test stripOrdered By: Rd Brown on 10-28-2024 Leukocyte esterase Test strip Ql (U) Leukocyte esterase [Presence] in Urine by Test strip High Negative [facility] Leukocytes [#/area] in Urine sediment by Automated countOrdered By: Rd Brown on 10-28-2024 WBC Auto (Urine sed) [#/Area] Leukocytes [#/area] in Urine sediment by Automated count High 0-4 [facility] Leukocytes [#/volume] correc venkata for nucleated erythrocytes in Blood by Automated counOrdered By: Rd Brown on 10-28-2024 WBC corrected for nucl RBC Auto (Bld) [#/Vol] Leukocytes [#/volume] corrected for nucleated erythrocytes in Blood by Automated coun High 3.8-11.6 [facility] Lipaseon 10-28-2024 Lipase [Catalytic activity/Vol] 19.0 U/L Normal 11.0-82.0 [facility] Comment on above: Result Comment: PERF ORMED BY: [place] [address] PATHOLOGIST [employer] IDANIA GODOY M.D. Performed By: #### C UU #### [address] Lipase [Enzymatic activity/v olume] in Serum or PlasmaOrdered By: Rd Brown on 10-28-2024 Lipase [Catalytic activity/Vol] Lipase [Enzymatic activity/volume] in Serum or Plasma 11.0-82.0 [facility] Lymphocytes Auto (Bld) [#/Vo l]Ordered By: Rd Brown on 10-28-2024 Lymphocytes (Bld) [#/Vol] Lymphocytes [#/volume] in Blood by Automated count 1.00-4.8 [facility] Lymphocytes/100 WBC Auto (Bl d)Ordered By: Rd Brown on 10-28-2024 Lymphocytes/100 WBC (Bld) Lymphocytes/100 leukocytes in Blood by Automated count . [facility] MCH Auto (RBC) [Entitic mass ]Ordered By: Rd Brown on 10-28-2024 MCH (RBC) [Entitic mass] MCH [Entitic mass] by Automated count 24.7-34.3 [facility] MCHC Auto (RBC) [Mass/Vol]Or dered By: Rd Brown on 10-28-2024 MCHC (RBC) [Mass/Vol] MCHC [Mass/volume] by Automated count 32.0-35.0 [facility] MCV Auto (RBC) [Entitic vol] Ordered By: Rd Brown on 10-28-2024 MCV (RBC) [Entitic vol] MCV [Entitic volume] by Automated count 80-100 [facility] Monocyte distribution width [Entitic volume] in Blood by AutomatedOrdered By: Rd Brown on 10-28-2024 Monocyte distribution width Auto (Bld) [Entitic vol] Monocyte distribution width [Entitic volume] in Blood by Automated 0.00-20.00 [facility] Monocytes Auto (Bld) [#/Vol] Ordered By: Rd Brown on 10-28-2024 Monocytes (Bld) [#/Vol] Automated blood monocyte count High 0.0-0.8 [facility] Monocytes/100 WBC Auto (Bld) Ordered By: Rd Brown on 10-28-2024 Monocytes/100 WBC (Bld) Automated monocyte % . [facility] Mucus [Presence] in Urine by AutomatedOrdered By: Rd Brown on 10-28-2024 Mucus Auto Ql (U) Mucus [Presence] in Urine by Automated Abnormal [facility] Neutrophils Auto (Bld) [#/Vo l]Ordered By: Rd Brown on 10-28-2024 Neutrophils (Bld) [#/Vol] Neutrophils [#/volume] in Blood by Automated count High 1.8-7.7 [facility] Neutrophils/100 WBC Auto (Bl d)Ordered By: Rd Brown on 10-28-2024 Neutrophils/100 WBC (Bld) Automated neutrophil % . [facility] Nitrite Test strip Ql (U)Ord ered By: Rd Brown on 10-28-2024 Nitrite Ql (U) Nitrite [Presence] i n Urine by Test strip Negative [facility] No Panel InformationOrdered By: Rd Brown on 10-28-2024 Estimated GFR (CKD-EPI) > 60.0 mL/Min [facility] Creatinine Clearance (Chem 104.62 [facility] Nucleated erythrocytes [Pres ence] in Blood by Automated countOrdered By: Rd Brown on 10-28-2024 Nucleated RBC Auto Ql (Bld) Nucleated erythrocytes [Presence] in Blood by Automated count 0-0.5 [facility] Opiates [Presence] in Urine by Screen methodOrdered By: Rd Brown on 10-28-2024 Opiates Screen Ql (U) Opiates [Presence] in Urine by Screen method Negative [facility] Phencyclidine Screen Ql (U)O rdered By: Rd Brown on 10-28-2024 Phencyclidine Ql (U) Phencyclidine [Pres ence] in Urine by Screen method Negative [facility] Platelet mean volume Auto (B ld) [Entitic vol]Ordered By: Rd Brown on 10-28-2024 Platelet mean volume (Bld) [Entitic vol] Platelet mean volume [Entitic volume] in Blood by Automated count 6.3-10.7 [facility] Platelets Auto (Bld) [#/Vol] Ordered By: Rd Brown on 10-28-2024 Platelets (Bld) [#/Vol] Platelets [#/volume] in Blood by Automated count 150-450 [facility] Potassiumon 10-28-2024 Potassium [Moles/Vol] 2.9 mmol/L Off scale low 3.5-5.1 [facility] Comment on above: Result Comment: Crit ical Result Called to and read back by: RYLAN BELL at: 10/28/2024 23:09:11 by:MO PERFORMED BY: [place] [address] PATHOLOGIST [employer] IDANIA GODOY M.D. Performed By: #### C UU #### [address] Potassium [Moles/volume] in Serum or PlasmaOrdered By: Rd Brown on 10-28-2024 Potassium [Moles/Vol] Potassium [Moles/v olume] in Serum or Plasma Critically low 3.5-5.1 [facility] Comment on above: Critical Result Call ed to and read back by: RYLAN BELL at: 10/28/2024 23:09:11 by:MO Protein Test strip (U) [Mass /Vol]Ordered By: Rd Brown on 10-28-2024 Protein (U) [Mass/Vol] Protein [Mass/vol ume] in Urine by Test strip High Negative [facility] Protein [Mass/volume] in Ser um or PlasmaOrdered By: Rd Brown on 10-28-2024 Protein [Mass/Vol] Protein [Mass/volume ] in Serum or Plasma 6.4-8.9 [facility] RBC Auto (Bld) [#/Vol]Ordere d By: Rd Brown on 10-28-2024 RBC (Bld) [#/Vol] Erythrocytes [#/volu me] in Blood by Automated count High 3.60-5.00 [facility] Serum or plasma albumin/glob ulin mass ratioOrdered By: Rd Brown on 10-28-2024 Albumin/Globulin [Mass ratio] Serum or plasma albumin/globulin mass ratio [facility] Serum or plasma anion gap de terminationOrdered By: Rd Brown on 10-28-2024 Anion gap [Moles/Vol] Serum or plasma an ion gap determination High 6.0-15.0 [facility] Serum or plasma non-glucuron idated bilirubin measurement (mass/volume)Ordered By: Rd Brown on 10-28-2024 Bilirubin.indirect [Mass/Vol] Serum or plasma non-glucuronidated bilirubin measurement (mass/volume) [facility] Sodium [Moles/volume] in Ser um or PlasmaOrdered By: Rd Brown on 10-28-2024 Sodium [Moles/Vol] Sodium [Moles/volume ] in Serum or Plasma 136-145 [facility] Specific gravity Test strip (U) [Rel density]Ordered By: Rd Brown on 10-28-2024 Specific gravity (U) [Rel density] Specific gravity of Urine by Test strip 1.001-1.03 0 [facility] Urea nitrogen [Mass/volume] in Serum or PlasmaOrdered By: Rd Brown on 10-28-2024 Urea nitrogen [Mass/Vol] Urea nitrogen [Mass/volume] in Serum or Plasma 7-25 [facility] Urine Cultureon 10-28-2024 Bacteria identified Cx Nom (U) 75,000 colonies/ml mixed bacterial skin contaminants 2 Days PERFORMED BY: [facility] [address] [place] [address] PATHOLOGIST [employer] IDANIA GODOY M.D. Normal [facility] Comment on above: Performed By: #### C UU #### [address] Urine cultureOrdered By: Mj Brown on 10-28-2024 Bacteria identified Cx Nom (U) Urine culture [facility] Urobilinogen Test strip (U) [Mass/Vol]Ordered By: Rd Brown on 10-28-2024 Urobilinogen (U) [Mass/Vol] Urobilinogen [Mass/volume] in Urine by Test strip High Normal [facility] WBC Auto (Bld) [#/Vol]Ordere d By: Rd Brown on 10-28-2024 WBC (Bld) [#/Vol] Leukocytes [#/volume ] in Blood by Automated count High 3.8-11.6 [facility] pH Test strip (U)Ordered By: Rd Brown on 10-28-2024 pH (U) pH of Urine by Test strip 5.0-9.0 [facility] Activated partial thrombopla stin time (aPTT) in platelet poor plasma by coagulation aOrdered By: Ania Watson on 08-03-2024 aPTT Coag (PPP) [Time] 24.7 s Low 25.1-36.5 [facility] Comment on above: A hematocrit value g reater than 55% may lead to inaccurate results in coagulation testing. Patients having hematocrit values >55% require a special collection tube for coagulation studies. Please contact the laboratory at [phone] for redraw instructions. BNP ser/plasOrdered By: Reji Watson on 08-03-2024 Natriuretic peptide B (Bld) [Mass/Vol] 19.0 pg/mL Normal 5-100 [facility] Comment on above: Order Comment: PT WA NTS TO WAIT UNTIL SHE IS TAKEN BACK INTO ER AND THEY START A IV ON HER,KAH, 2100 Result Comment: PERF ORMED BY: [facility] [address] [place] [address] PATHOLOGIST [employer] JIANLAN SUN M.D. Performed By: #### C K, PT, BNP, PTT, CBC, BMP, HS TROP #### [facility] [address] Basic Metabolic Panelon Creatinine Clr Calc Pharmacy 154.09 Normal [facility] Comment on above: Order Comment: PT WA NTS TO WAIT UNTIL SHE IS TAKEN BACK INTO ER AND THEY START A IV ON 2099 Result Comment: PERF ORMED BY: [place] [address] PATHOLOGIST [employer] NAY SARKAR M.D. Performed By: #### C K, PT, BNP, PTT, CBC, BMP, HS TROP #### [address] GFR/1.73 sq M.predicted MDRD (S/P/Bld) [Vol rate/Area] mL/min/{1.73_m2} Normal [facility] Comment on above: Order Comment: PT WA NTS TO WAIT UNTIL SHE IS TAKEN BACK INTO ER AND THEY START A IV ON 2099 Performed By: #### C K, PT, BNP, PTT, CBC, BMP, HS TROP #### [address] Calcium [Mass/volume] in Ser um or PlasmaOrdered By: Ania Watson on 08-03-2024 Calcium [Mass/Vol] 9.6 mg/dL Normal 8.6-10.3 [facility] Comment on above: Order Comment: PT WA NTS TO WAIT UNTIL SHE IS TAKEN BACK INTO ER AND THEY START A IV ON HER2099 Performed By: #### C K, PT, BNP, PTT, CBC, BMP, HS TROP #### [facility] [address] [place] [address] [place] Carbon dioxide, total [Moles /volume] in Serum or PlasmaOrdered By: Ania Watson on 08-03-2024 CO2 [Moles/Vol] 18.5 mmol/L Low 21.0-31.0 [facility] Comment on above: Order Comment: PT WA NTS TO WAIT UNTIL SHE IS TAKEN BACK INTO ER AND THEY START A IV ON 2099 Performed By: #### C K, PT, BNP, PTT, CBC, BMP, HS TROP #### [facility] [address] Chloride [Moles/volume] in [place] or PlasmaOrdered By: Ania Watson on 08-03-2024 Chloride [Moles/Vol] 99 mmol/L Normal 98-107 [facility] Comment on above: Order Comment: PT WA NTS TO WAIT UNTIL SHE IS TAKEN BACK INTO ER AND THEY START A IV ON HER2099 Performed By: #### C K, PT, BNP, PTT, CBC, BMP, HS TROP #### [facility] [address] Complete Blood Count Auto Di ffon 08-03-2024 Basophils (Bld) [#/Vol] 0.1 10*3/uL Normal 0.0-0.2 [facility] Comment on above: Order Comment: PT WA NTS TO WAIT UNTIL SHE IS TAKEN BACK INTO ER AND THEY START A IV ON HER2099 Result Comment: PERF ORMED BY: [place] [address] PATHOLOGIST [employer] NAY SARKAR M.D. Performed By: #### C K, PT, BNP, PTT, CBC, BMP, HS TROP #### [facility] [address] [place] [address] Basophils/100 WBC (Bld) 0.4 % Normal . [facility] Comment on above: Order Comment: PT WA NTS TO WAIT UNTIL SHE IS TAKEN BACK INTO ER AND THEY START A IV ON HER2099 Performed By: #### C K, PT, BNP, PTT, CBC, BMP, HS TROP #### [facility] [address] Eosinophils (Bld) [#/Vol] 0.2 10*3/uL Normal 0.0-0.45 [facility] Comment on above: Order Comment: PT WA NTS TO WAIT UNTIL SHE IS TAKEN BACK INTO ER AND THEY START A IV ON HER2099 Performed By: #### C K, PT, BNP, PTT, CBC, BMP, HS TROP #### [address] Eosinophils/100 WBC (Bld) 0.9 % Normal . [facility] Comment on above: Order Comment: PT WA NTS TO WAIT UNTIL SHE IS TAKEN BACK INTO ER AND THEY START A IV ON HER,, 2099 Performed By: #### C K, PT, BNP, PTT, CBC, BMP, HS TROP #### [address] Erythrocyte distribution width (RBC) [Ratio] 13.2 % Normal 11.9-15.3 [facility] Comment on above: Order Comment: PT WA NTS TO WAIT UNTIL SHE IS TAKEN BACK INTO ER AND THEY START A IV ON HER,2099 Performed By: #### C K, PT, BNP, PTT, CBC, BMP, HS TROP #### [address] Hematocrit (Bld) [Volume fraction] 43.6 % Normal 34.0-46.4 [facility] Comment on above: Order Comment: PT WA NTS TO WAIT UNTIL SHE IS TAKEN BACK INTO ER AND THEY START A IV ON HER,2099 Performed By: #### C K, PT, BNP, PTT, CBC, BMP, HS TROP #### [address] Hemoglobin (Bld) [Mass/Vol] 14.8 g/dL Normal 11.8-15.4 [facility] Comment on above: Order Comment: PT WA NTS TO WAIT UNTIL SHE IS TAKEN BACK INTO ER AND THEY START A IV ON HER,, 2099 Performed By: #### C K, PT, BNP, PTT, CBC, BMP, HS TROP #### [address] Lymphocytes (Bld) [#/Vol] 2.5 10*3/uL Normal 1.00-4.8 [facility] Comment on above: Order Comment: PT WA NTS TO WAIT UNTIL SHE IS TAKEN BACK INTO ER AND THEY START A IV ON HER,2099 Performed By: #### C K, PT, BNP, PTT, CBC, BMP, HS TROP #### [address] Lymphocytes/100 WBC (Bld) 13.0 % Normal . [facility] Comment on above: Order Comment: PT WA NTS TO WAIT UNTIL SHE IS TAKEN BACK INTO ER AND THEY START A IV ON HER,, 2099 Performed By: #### C K, PT, BNP, PTT, CBC, BMP, HS TROP #### [address] MCH (RBC) [Entitic mass] 28.4 pg Normal 24.7-34.3 [facility] Comment on above: Order Comment: PT WA NTS TO WAIT UNTIL SHE IS TAKEN BACK INTO ER AND THEY START A IV ON HER,, 2099 Performed By: #### C K, PT, BNP, PTT, CBC, BMP, HS TROP #### [address] MCV (RBC) [Entitic vol] 83.8 fL Normal 80-100 [facility] Comment on above: Order Comment: PT WA NTS TO WAIT UNTIL SHE IS TAKEN BACK INTO ER AND THEY START A IV ON HER,, 2099 Performed By: #### C K, PT, BNP, PTT, CBC, BMP, HS TROP #### [address] Mean Corpuscular HGB Conc 33.9 g/dL Normal 32.0-35.0 [facility] Comment on above: Order Comment: PT WA NTS TO WAIT UNTIL SHE IS TAKEN BACK INTO ER AND THEY START A IV ON HER,, 2099 Performed By: #### C K, PT, BNP, PTT, CBC, BMP, HS TROP #### [address] Monocytes (Bld) [#/Vol] 1.6 10*3/uL High 0.0-0.8 [facility] Comment on above: Order Comment: PT WA NTS TO WAIT UNTIL SHE IS TAKEN BACK INTO ER AND THEY START A IV ON HER,, 2099 Performed By: #### C K, PT, BNP, PTT, CBC, BMP, HS TROP #### [address] [place] [address] [place] Monocytes/100 WBC (Bld) 18.96 % Normal 0.00-20.00 [facility] Comment on above: Order Comment: PT WA NTS TO WAIT UNTIL SHE IS TAKEN BACK INTO ER AND THEY START A IV ON HER,, 2099 Performed By: #### C K, PT, BNP, PTT, CBC, BMP, HS TROP #### [facility] [address] [place] [address] [place] Monocytes/100 WBC (Bld) 8.1 % Normal . [facility] Comment on above: Order Comment: PT WA NTS TO WAIT UNTIL SHE IS TAKEN BACK INTO ER AND THEY START A IV ON HER,, 2099 Performed By: #### C K, PT, BNP, PTT, CBC, BMP, HS TROP #### [place] [address] [place] Neutrophils (Bld) [#/Vol] 15.0 10*3/uL High 1.8-7.7 [facility] Comment on above: Order Comment: PT WA NTS TO WAIT UNTIL SHE IS TAKEN BACK INTO ER AND THEY START A IV ON HER,, 2099 Performed By: #### C K, PT, BNP, PTT, CBC, BMP, HS TROP #### [place] [address] [place] Neutrophils/100 WBC (Bld) 77.6 % Normal . [facility] Comment on above: Order Comment: PT WA NTS TO WAIT UNTIL SHE IS TAKEN BACK INTO ER AND THEY START A IV ON HER,, 2099 Performed By: #### C K, PT, BNP, PTT, CBC, BMP, HS TROP #### [place] [address] [place] NRBC% 0.3 /100{WBC} Normal 0-0.5 [facility] Comment on above: Order Comment: PT WA NTS TO WAIT UNTIL SHE IS TAKEN BACK INTO ER AND THEY START A IV ON HER,, 2099 Performed By: #### C K, PT, BNP, PTT, CBC, BMP, HS TROP #### [facility] [address] [place] [address] [place] Platelet mean volume (Bld) [Entitic vol] 8.6 fL Normal 6.3-10.7 [facility] Comment on above: Order Comment: PT WA NTS TO WAIT UNTIL SHE IS TAKEN BACK INTO ER AND THEY START A IV ON HER,2099 Performed By: #### C K, PT, BNP, PTT, CBC, BMP, HS TROP #### [facility] [address] Platelets (Bld) [#/Vol] 282 10*3/uL Normal 150-450 [facility] Comment on above: Order Comment: PT WA NTS TO WAIT UNTIL SHE IS TAKEN BACK INTO ER AND THEY START A IV ON HER,2099 Performed By: #### C K, PT, BNP, PTT, CBC, BMP, HS TROP #### [facility] [address] [place] [address] RBC (Bld) [#/Vol] 5.20 10*6/uL High 3.60-5.00 [facility] Comment on above: Order Comment: PT WA NTS TO WAIT UNTIL SHE IS TAKEN BACK INTO ER AND THEY START A IV ON HER,2099 Performed By: #### C K, PT, BNP, PTT, CBC, BMP, HS TROP #### [facility] [address] [place] [address] WBC (Bld) [#/Vol] 19.4 10*3/uL High 3.8-11.6 [facility] Comment on above: Order Comment: PT WA NTS TO WAIT UNTIL SHE IS TAKEN BACK INTO ER AND THEY START A IV ON HER,, 2099 Performed By: #### C K, PT, BNP, PTT, CBC, BMP, HS TROP #### [address] Creatine kinase [Enzymatic a ctivity/volume] in Serum or PlasmaOrdered By: Ania Watson on 08-03-2024 CK [Catalytic activity/Vol] 33 U/L Normal 30-223 [facility] Comment on above: Order Comment: PT WA NTS TO WAIT UNTIL SHE IS TAKEN BACK INTO ER AND THEY START A IV ON HER,, 2099 Performed By: #### C K, PT, BNP, PTT, CBC, BMP, HS TROP #### [facility] [address] [place] [id number] [facility] Creatinine [Mass/volume] in Serum or PlasmaOrdered By: Ania Watson on 08-03-2024 Creatinine [Mass/Vol] 0.61 mg/dL Normal 0.60-1.20 [facility] Comment on above: Order Comment: PT WA NTS TO WAIT UNTIL SHE IS TAKEN BACK INTO ER AND THEY START A IV ON HER,KAH, 2100 Performed By: #### C K, PT, BNP, PTT, CBC, BMP, HS TROP #### [facility] [address] [place] [id number] [facility] ECG 12 lead ECGon 08-03-2024 ECG 12 lead ECG [facility] Main [place] [address] [place] [address] Electrocardiograph Report Signed Patient: Pili Parikh MR#: [id number] : 2005 Acct:[id number] Age/Sex: 19 / F ADM Date: 08/03/24 Loc: ER Room: Type: [facility] ER Attending Dr: Ordering Provider: Ania [...] wave abnormality Confirmed by Ania Watson MD ([id number]) on 08/04/2024 1:34:37 AM Referred By: Electronically Signed By: Ania Watson MD Transcribed By: MUS Signed By Ania Watson MD 06/20 0134 Normal [facility] Glucose [Mass/volume] in Ser um or PlasmaOrdered By: Ania Watson on 08-03-2024 Glucose [Mass/Vol] 91 mg/dL Normal 70-100 [facility] Comment on above: ADA recommended refe rence rangeRandom Glucose Reference Range is dependent on time and content of last meal. Glucose of more than 200 mg/dL in a nonstressed, ambulatory subject supports the diagnosis of Diabetes Mellitus. Order Comment: PT WA NTS TO WAIT UNTIL SHE IS TAKEN BACK INTO ER AND THEY START A IV ON HER,2099 Result Comment: [place] Glucose Reference Range is dependent on time and content of last meal. Glucose of more than 200 mg/dL in a nonstressed, ambulatory subject supports the diagnosis of Diabetes Mellitus. ADA recommended reference range Performed By: #### C K, PT, BNP, PTT, CBC, BMP, HS TROP #### [facility] [address] [place] [address] [facility] INR in Platelet poor plasma by Coagulation assayOrdered By: Ania Watson on 08-03-2024 INR Coag (PPP) [Relative time] 1.2 {INR} Normal [facility] Comment on above: INR Therapeutic Rang [...] BNP, PTT, CBC, BMP, HS TROP #### [facility] [address] [place] [address] [facility] No Panel InformationOrdered By: Ania Watson on 08-03-2024 Estimated GFR (CKD-EPI) > 60.0 mL/Min [facility] Creatinine Clearance (Chem 154.09 [facility] Partial Thromboplastin Timeo n 08-03-2024 aPTT [...] coagulation studies. Please contact the laboratory at [phone] for redraw instructions. PERFORMED BY: [place] [address] PATHOLOGIST [employer] NAY SARKAR M.D. Performed By: #### C K, PT, BNP, PTT, CBC, BMP, HS TROP #### [facility] [address] [place], [place] [id number] [facility] Potassium [Moles/volume] in Serum or PlasmaOrdered By: Ania Watson on 08-03-2024 Potassium [Moles/Vol] 3.5 mmol/L Normal 3.5-5.1 [facility] Comment on above: Hemolysis is present [...] BNP, PTT, CBC, BMP, HS TROP #### [facility] [address] [place] [address] [facility] Prothrombin time (PT)Ordered By: Ania Watson on 08-03-2024 PT Coag (PPP) [Time] 13.3 s High 9.0-12.9 [facility] Comment on above: A hematocrit value g reater than 55% may lead to inaccurate results in coagulation testing. Patients having hematocrit values >55% require a special collection tube for coagulation studies. Please contact the laboratory at [phone] for redraw instructions. Order Comment: PT WA NTS TO WAIT UNTIL SHE IS TAKEN BACK INTO ER AND THEY START A IV ON HER,KAH, 2100 Result Comment: A he matocrit value greater than 55% may lead to inaccurate results in coagulation testing. Patients having hematocrit values >55% require a special collection tube for coagulation studies. Please contact the laboratory at [phone] for redraw instructions. Performed By: #### C K, PT, BNP, PTT, CBC, BMP, HS TROP #### [facility] [address] Serum or plasma anion gap de terminationOrdered By: Ania Watson on 08-03-2024 Anion gap [Moles/Vol] 20.0 mmol/L High 6.0-15.0 [facility] Comment on above: Order Comment: PT WA NTS TO WAIT UNTIL SHE IS TAKEN BACK INTO ER AND THEY START A IV ON HER,2099 Performed By: #### C K, PT, BNP, PTT, CBC, BMP, HS TROP #### [facility] [address] [place] [address] Sodium [Moles/volume] in Ser um or PlasmaOrdered By: Ania Watson on 08-03-2024 Sodium [Moles/Vol] 134 mmol/L Low 136-145 [facility] Comment on above: Order Comment: PT WA NTS TO WAIT UNTIL SHE IS TAKEN BACK INTO ER AND THEY START A IV ON HER,2099 Performed By: #### C K, PT, BNP, PTT, CBC, BMP, HS TROP #### [facility] [address] [place] [address] Troponin I High Sensitivityo n 08-03-2024 Troponin I High Sensitivity 7.0 pg/mL Normal 0.0-15.0 [facility] Comment on above: Order Comment: PT WA NTS TO WAIT UNTIL SHE IS TAKEN BACK INTO ER AND THEY START A IV ON HER,2099 Result Comment: PERF ORMED BY: [address] [place] [address] PATHOLOGIST LACQUER POLISHER NYA SARKAR M.D. Performed By: #### C K, PT, BNP, PTT, CBC, BMP, HS TROP #### [address] Troponin I.cardiac [Mass/vol ume] in Serum or Plasma by Detection limit <= 0.01 ng/Ordered By: Ania Watson on 08-03-2024 Troponin I.cardiac DL <= 0.01 ng/mL [Mass/Vol] 7.0 pg/mL 0.0-15.0 [facility] Urea nitrogen [Mass/volume] in Serum or PlasmaOrdered By: Ania Watson on 08-03-2024 Urea nitrogen [Mass/Vol] 20 mg/dL Normal 7-25 [facility] Comment on above: Order Comment: PT WA NTS TO WAIT UNTIL SHE IS TAKEN BACK INTO ER AND THEY START A IV ON HER,KAH, 2100 Performed By: #### C K, PT, BNP, PTT, CBC, BMP, HS TROP #### [facility] [address] B hCG [place] 08-01-2024 Beta HCG ( test) Ql Negative Normal [facility] Comment on above: Performed By: #### 2 [id number] #### [facility] [address] [place] [address] BMPon 08-01-2024 Anion gap [Moles/Vol] 14 mmol/L Normal 6-16 [facility] Comment on above: Performed By: #### 2 [id number] #### [facility] [address] [place] [address] Calcium [Mass/Vol] 9.7 mg/dL Normal 8.9-11.1 [facility] Comment on above: Performed By: #### 2 [id number] #### [facility] [address] [place] [address] Chloride [Moles/Vol] 102 mmol/L Normal 101-111 [facility] Comment on above: Performed By: #### 2 788340 #### [facility] [address] [place] [address] CO2 [Moles/Vol] 24 mmol/L Normal 21-31 [facility] Comment on above: Performed By: #### 2 141096 #### [facility] [address] [place] [address] Creatinine [Mass/Vol] 0.7 mg/dL Normal 0.5-1.3 [facility] Comment on above: Performed By: #### 2 213494 #### [facility] [address] [place] [address] Glucose [Mass/Vol] 96 mg/dL Normal 55-199 [facility] Comment on above: Performed By: #### 2 047612 #### [facility] [address] [place] [address] Potassium [Moles/Vol] 3.3 mmol/L Low 3.5-5.3 [facility] Comment on above: Performed By: #### 2 317336 #### [facility] [address] [place] [address] Sodium [Moles/Vol] 137 mmol/L Normal 135-145 [facility] Comment on above: Performed By: #### 2 057016 #### [facility] [address] [place] [address] Urea nitrogen [Mass/Vol] 18 mg/dL Normal 5-21 [facility] Comment on above: Performed By: #### 2 739272 #### [facility] [address] [place] [address] Urea nitrogen/Creatinine [Mass ratio] 26 No Units High 10-20 [facility] Comment on above: Performed By: #### 2 [id number] #### [facility] [address] [place] [address] CBC w/ Auto Diffon 4 Basophils/100 WBC (Bld) 0.3 % Normal 0.0-2.0 [facility] Comment on above: Performed By: #### 2 105366 #### [facility] [address] [place] [address] Basophils/Leukocytes Auto (Bld) [Pure # fraction] 0.1 E9/L Normal 0.0-0.2 [facility] Comment on above: Performed By: #### 2 897386 #### [facility] [address] [place] [address] Eosinophils (Bld) [#/Vol] 0.1 E9/L Normal 0.0-0.5 [facility] Comment on above: Performed By: #### 2 343441 #### [facility] [address] [place] [address] Eosinophils/100 WBC (Bld) 0.4 % Normal 0.0-8.0 [facility] Comment on above: Performed By: #### 2 384276 #### [facility] [address] [place] [address] Erythrocyte distribution width (RBC) [Ratio] 13.3 % Normal 10.9-14.2 [facility] Comment on above: Performed By: #### 2 832658 #### [facility] [address] [place] [address] Hematocrit (Bld) [Volume fraction] 43.9 % Normal 34.0-46.0 [facility] Comment on above: Performed By: #### 2 775332 #### [facility] [address] [place] [address] Hemoglobin (Bld) [Mass/Vol] 14.5 g/dL Normal 12.0-16.0 [facility] Comment on above: Performed By: #### 2 450941 #### [facility] [address] [place] [address] Lymphocytes (Bld) [#/Vol] 2.3 E9/L Normal 1.0-4.0 [facility] Comment on above: Performed By: #### 2 557736 #### [facility] [address] [place] [address] Lymphocytes/100 WBC (Bld) 13.7 % Low 14.0-50.0 [facility] Comment on above: Performed By: #### 2 791440 #### [facility] [address] [place] [address] MCH (RBC) [Entitic mass] 28.3 pg Normal 27.0-34.0 [facility] Comment on above: Performed By: #### 2 188236 #### [facility] [address] [place] [address] MCHC (RBC) [Mass/Vol] 33.0 g/dL Normal 31.4-36.0 [facility] Comment on above: Performed By: #### 2 351340 #### [facility] [address] [place] [address] MCV (RBC) [Entitic vol] 85.8 fL Normal 80.0-100.0 [facility] Comment on above: Performed By: #### 2 367984 #### [facility] [address] [place] [address] Monocytes (Bld) [#/Vol] 1.2 E9/L High 0.2-1.0 [facility] Comment on above: Performed By: #### 2 413028 #### [facility] [address] [place] [address] Neutrophils (Bld) [#/Vol] 13.1 E9/L High 2.0-7.5 [facility] Comment on above: Performed By: #### 2 143362 #### [facility] [address] [place] [address] Neutrophils/100 WBC (Bld) 78.5 % High 36.0-75.0 [facility] Comment on above: Performed By: #### 2 658411 #### [facility] [address] [place] [address] Platelet mean volume (Bld) [Entitic vol] 8.2 fL Normal 6.4-10.8 [facility] Comment on above: Performed By: #### 2 791926 #### [facility] [address] [place] [address] Platelets (Bld) [#/Vol] 246.0 E9/L Normal 150.0-500. 0 [facility] Comment on above: Performed By: #### 2 582925 #### [facility] [address] [place] [address] RBC (Bld) [#/Vol] 5.1 E12/L Normal 4.3-5.9 [facility] Comment on above: Performed By: #### 2 205463 #### [facility] [address] [place] [address] WBC corrected for nucl RBC Auto (Bld) [#/Vol] 16.7 E9/L High 4.0-11.0 [facility] Comment on above: Result Comment: Sarahi pheral smear review performed. Performed By: #### 2 168704 #### [facility] [address] [place] [address] ED Clinical Summaryon 2023 ED Clinical Summary ED Clinical Summary [address] [address] ED Clinical Summary Person Information Name: PILI PARIKH/[facility] Age: 19 Years : 2005 Sex: Female Language: Tongan PCP: MODESTA CHAND CNP Marital Status: Single [...] 12:09:48 08/01/2024 12:09:48 08/01/2024 12:09:48 ADDRESS: [address] [facility] [id number] PHYS DOC NOTES: MEDICAL INFORMATION: Prescriptions Given: New Medications [facility]/pharmacy #[id number], [address], [place] [id number], [phone] potassium chloride (potassium chloride 20 mEq ER [...] Follow up: With: Address: When: MODESTA CHAND [address] [place] [id number] [phone] Business (1) In 3 days 08/04/2024 Comments: Make sure to fill the prescriptions that was prescribed from [place]. Fill the new prescription for potassium. Follow-up with your primary doctor as discussed. Return to the emergency room if your vomiting recurs, abdominal pain recurs or any new symptoms. DIAGNOSIS: 1:Vomiting and diarrhea; 2:Hypokalemia; 3:Leukocytosis; Diarrhea, unspecified Normal [facility] ED Note-Physicianon 08-01-20 ED Note-Physician ED Note-Physician Basic Information Time Seen: August Bermudez M.D. 08/01/2024 09:27 Chief Complaint just left [place] [facility], seen multiple times for n/v lightheaded. hx cyclic vomiting, state its not that. has medication at [facility] but wanted to come here instead [...] any sick contact. The patient was at [facility] and they did send medication to [facility] however she feels she is dehydrated. [...] Diagnosis: [] [facility] Data External documents reviewed: [] My EKG [...] day(s), # 4 tab(s), Refills(s) 0, Pharmacy: [facility]/pharmacy #[id number], 157, cm, 08/01/24 9:34:00 EDT, [...] Disposition Dis (more content not included)... Normal [facility] Comment on above: Result Comment: Elec tronically Signed By: August Bermudez M.D.\.br\Date and Time Signed: 08/01/24 11:58 EDT ED Patient Summaryon 024 ED Patient Summary ED Patient Summary [place] [id number] Patient Discharge Instructions Person Information Name: PILI PARIKH Age: 19 Years Arrival Date: 08/01/2024 09:23:00 Discharge Diagnosis: 1:Vomiting and diarrhea; 2:Hypokalemia; 3:Leukocytosis; Diarrhea, unspecified Primary Care Physician: MODESTA CHAND CNP Provider Information Primary Provider: August Bermudez M.D. Advanced Crew Truck Driver:None The exam and treatment you received in the Emergency Department were for an urgent problem and are not intended as complete care. It is important that you follow up with a doctor, nurse practitioner, or physician?s project assistant for ongoing care. If your symptoms [...] With: Address: When: MODESTA CHAND [address] [place] [phone] Business (1) In 3 days 08/04/2024 Comments: Make sure to fill the prescriptions that was prescribed from [place]. Fill the new prescription for potassium. Follow-up [...] opioids can be used to help relieve pxreeoqn-vd-asusmp pain and are often prescribed following a [...] the to (more content not included)... Normal [facility] Hep Func Panelon 08-01-2024 Albumin [Mass/Vol] 5.1 g/dL High 3.3-5.0 [facility] Comment on above: Performed By: #### 2 518571 #### [facility] [address] [place] [address] Albumin/Globulin (S) [Mass conc ratio] 1.7 Normal 1.1-2.2 [facility] Comment on above: Performed By: #### 2 285161 #### [facility] [address] [place] [address] ALP [Catalytic activity/Vol] 75 Int._Unit/L Normal 21-98 [facility] Comment on above: Performed By: #### 2 996106 #### [facility] [address] [place] [address] ALT No additional P-5'-P [Catalytic activity/Vol] 45 Int._Unit/L Normal 6-46 [facility] Comment on above: Performed By: #### 2 742793 #### [facility] [address] [place] [address] AST [Catalytic activity/Vol] 25 Int._Unit/L Normal 5-43 [facility] Comment on above: Performed By: #### 2 724718 #### [facility] [address] [place] [address] Bilirubin [Mass/Vol] 0.9 mg/dL Normal 0.0-1.1 [facility] Comment on above: Performed By: #### 2 475435 #### [facility] [address] [place] [address] Bilirubin.direct [Mass/Vol] 0.1 mg/dL Normal 0.0-0.4 [facility] Comment on above: Performed By: #### 2 056918 #### [facility] [address] [place] [address] Bilirubin.indirect [Mass or moles/Vol] 0.8 mg/dL Normal 0.1-0.9 [facility] Comment on above: Performed By: #### 2 392638 #### [facility] [address] [place] [address] Globulin (S) [Mass/Vol] 3.0 g/dL Normal 1.4-4.0 [facility] Comment on above: Performed By: #### 2 100265 #### [facility] [address] [place] [address] Protein [Mass/Vol] 8.1 g/dL High 6.0-7.8 [facility] Comment on above: Performed By: #### 2 568620 #### [facility] [address] [place] [address] Lipase Levelon 08-01-2024 Lipase [Catalytic activity/Vol] 27 U/L Normal 13-58 [facility] Comment on above: Performed By: #### 2 994927 #### [facility] [address] [place] [address] Magnesiumon 08-01-2024 Magnesium [Mass/Vol] 2.2 mg/dL Normal 1.3-2.4 [facility] Comment on above: Performed By: #### 2 585520 #### [facility] [address] [place] [address] PT & PTTon 08-01-2024 aPTT Coag (PPP) [Time] 31.2 second(s) Normal 25.1-36.5 [facility] Comment on above: Result Comment: Para meter [...] the same coagulation reagent and instrumentation as [facility]. Currently there are no coagulation studies available worldwide for children to 14 days, and no normal ranges. Heparin therapeutic range (represented by Anti-Factor Xa activity of 0.2 - 0.4 U/mL) corresponds to PTT of 56.6 - 109.0 sec. Performed By: #### 1 [id number] #### [facility] [address] [place] [address] INR Coag (PPP) [Relative time] 1.11 {INR} Invalid Interpretation Code [facility] Comment on above: Result Comment: INR results are specifically intended to assess patients stabilized on long-term Anticoagulation therapy suggested INR?s ?Less Intensive Anticoagulation? 2.0 ? 3.0 Conventional Range 3.0 ? 4.5 Performed By: #### 1 [id number] #### [facility] [address] [place] [address] PT Coag (PPP) [Time] 12.5 second(s) Normal 9.4-12.5 [facility] Comment on above: Result Comment: 15 d [...] the same coagulation reagent and instrumentation as [facility]. Currently there are no coagulation studies available worldwide for children to 14 days, and no normal ranges. Performed By: #### 1 [id number] #### [facility] [address] [place] [address] Troponin 0 Hr.on 08-01-2024 Troponin HS 5.20 pg/mL Low 10.10-27.1 0 [facility] Comment on above: Result Comment: The 95% CI (Confidence Interval) PPV (Positive Predictive Value) for myocardial infarction in females is 38 pg/mL, in males 51 pg/mL. The results should be used in conjunction with clinical conditions of myocardial infarction. (Access High Sensitivity Troponin I Instructions For Use, [place], June 2018) Performed By: #### 1 [id number] #### [facility] [address] [place] [address] eGFRon 08-01-2024 eGFR 126 mL/min/1.73 m2 Normal >=59 [facility] Comment on above: Order Comment: Order added by Discern Expert. Performed By: #### 1 [id number] #### [facility] [address] [place] [address] BMPon 07-30-2024 Anion gap [Moles/Vol] 13 mmol/L Normal 6-16 [facility] Comment on above: Performed By: #### 2 331924 #### [facility] [address] [place] [address] Calcium [Mass/Vol] 9.4 mg/dL Normal 8.9-11.1 [facility] Comment on above: Performed By: #### 2 723163 #### [facility] [address] [place] [address] Chloride [Moles/Vol] 107 mmol/L Normal 101-111 [facility] Comment on above: Performed By: #### 2 111153 #### [facility] [address] [place] [address] CO2 [Moles/Vol] 25 mmol/L Normal 21-31 [facility] Comment on above: Performed By: #### 2 331042 #### [facility] [address] [place] [address] Creatinine [Mass/Vol] 0.8 mg/dL Normal 0.5-1.3 [facility] Comment on above: Performed By: #### 2 828387 #### [facility] [address] [place] [address] Glucose [Mass/Vol] 89 mg/dL Normal 55-199 [facility] Comment on above: Performed By: #### 2 286142 #### [facility] [address] [place] [address] Potassium [Moles/Vol] 3.6 mmol/L Normal 3.5-5.3 [facility] Comment on above: Performed By: #### 2 079739 #### [facility] [address] [place] [address] Sodium [Moles/Vol] 141 mmol/L Normal 135-145 [facility] Comment on above: Performed By: #### 2 721364 #### [facility] [address] [place] [address] Urea nitrogen [Mass/Vol] 19 mg/dL Normal 5-21 [facility] Comment on above: Performed By: #### 2 227458 #### [facility] [address] [place] [address] Urea nitrogen/Creatinine [Mass ratio] 24 No Units High 10-20 [facility] Comment on above: Performed By: #### 2 015842 #### [facility] [address] [place] [address] CBC w/ Auto Diffon 4 Basophils/100 WBC (Bld) 0.4 % Normal 0.0-2.0 [facility] Comment on above: Performed By: #### 2 928032 #### [facility] [address] [place] [address] Basophils/Leukocytes Auto (Bld) [Pure # fraction] 0.1 E9/L Normal 0.0-0.2 [facility] Comment on above: Performed By: #### 2 764600 #### [facility] [address] [place] [address] Eosinophils (Bld) [#/Vol] 0.1 E9/L Normal 0.0-0.5 [facility] Comment on above: Performed By: #### 2 971683 #### [facility] [address] [place] [address] Eosinophils/100 WBC (Bld) 0.5 % Normal 0.0-8.0 [facility] Comment on above: Performed By: #### 2 474476 #### [facility] [address] [place] [address] Erythrocyte distribution width (RBC) [Ratio] 13.2 % Normal 10.9-14.2 [facility] Comment on above: Performed By: #### 2 716986 #### [facility] [address] [place] [address] Hematocrit (Bld) [Volume fraction] 39.6 % Normal 34.0-46.0 [facility] Comment on above: Performed By: #### 2 366242 #### [facility] [address] [place] [address] Hemoglobin (Bld) [Mass/Vol] 13.7 g/dL Normal 12.0-16.0 [facility] Comment on above: Performed By: #### 2 006205 #### [facility] [address] [place] [address] Lymphocytes (Bld) [#/Vol] 2.3 E9/L Normal 1.0-4.0 [facility] Comment on above: Performed By: #### 2 976504 #### [facility] [address] [place] [address] Lymphocytes/100 WBC (Bld) 14.1 % Normal 14.0-50.0 [facility] Comment on above: Performed By: #### 2 383454 #### [facility] [address] [place] [address] MCH (RBC) [Entitic mass] 29.4 pg Normal 27.0-34.0 [facility] Comment on above: Performed By: #### 2 938527 #### [facility] [address] [place] [address] MCHC (RBC) [Mass/Vol] 34.5 g/dL Normal 31.4-36.0 [facility] Comment on above: Performed By: #### 2 879118 #### [facility] [address] [place] [address] MCV (RBC) [Entitic vol] 85.3 fL Normal 80.0-100.0 [facility] Comment on above: Performed By: #### 2 773551 #### [facility] [address] [place] [address] Monocytes (Bld) [#/Vol] 1.2 E9/L High 0.2-1.0 [facility] Comment on above: Performed By: #### 2 897688 #### [facility] [address] [place] [address] Neutrophils (Bld) [#/Vol] 12.6 E9/L High 2.0-7.5 [facility] Comment on above: Performed By: #### 2 664364 #### [facility] [address] [place] [address] Neutrophils/100 WBC (Bld) 77.5 % High 36.0-75.0 [facility] Comment on above: Performed By: #### 2 132934 #### [facility] [address] [place] [address] Platelet 260.0 E9/L Normal 150.0-500. 0 [facility] Comment on above: Performed By: #### 2 072041 #### [facility] [address] [place] [address] Platelet mean volume (Bld) [Entitic vol] 8.1 fL Normal 6.4-10.8 [facility] Comment on above: Performed By: #### 2 557341 #### [facility] [address] [place] [address] RBC (Bld) [#/Vol] 4.7 E12/L Normal 4.3-5.9 [facility] Comment on above: Performed By: #### 2 805803 #### [facility] [address] [place] [address] WBC corrected for nucl RBC Auto (Bld) [#/Vol] 16.2 E9/L High 4.0-11.0 [facility] Comment on above: Performed By: #### 2 451850 #### [facility] [address] [place] [address] CHEMISTRYOrdered By: Manish carpio on 07-30-2024 Albumin [...] 2023 ED Clinical Summary ED Clinical Summary [place] [id number] ED Clinical Summary Person Information [facility]: [facility] Age: 19 Years : 2005 Sex: Female Language: Tongan PCP: MODESTA ARCHIBALD Marital Status: Single Visit [...] 07/30/2024 22:55:49 07/30/2024 22:55:49 07/30/2024 22:55:49 ADDRESS: [address] [place] [id number] PHYS DOC NOTES: MEDICAL INFORMATION: Prescriptions Given: New Medications [id number], [address], [place] [id number], [phone] ondansetron (Zofran ODT 4 mg Tab-Dis) 1 Tablets By Mouth every 8 hours as needed Nausea/Vomiting. Refills: 0. Medications to Continue Taking That Have Changed [facility]/pharmacy #[id number], [address], [place] [id number], [phone] START: promethazine (Phenergan 12.5 mg Supp) 1 [...] Follow up: With: Address: When: [place] [address] Business (1) In 3 days 08/02/2024 DIAGNOSIS: AP (abdominal pain); N&V (nausea and vomiting) Normal [facility] ED Note-Physicianon 07-30-20 ED Note-Physician ED Note-Physician [...] Diagnosis: [] [facility] Data External documents reviewed: N/A My EKG [...] # 16 tab(s), Refills(s) 0, Pharmacy: [id number], 157, cm, 07/30/24 19:37:00 EDT, Height/Length Dosing, 96.1, kg, 07/30/24 19:37:00 EDT, Weight Dosing promethazine, 12.5 mg = 1 tab(s), Oral, q8hr, PRN as needed for nausea/vomiting, second line, # 10 tab(s), Refills(s) 0, [id number], cm, 07/30/24 19:37:00 EDT, Height/Length Dosing, 96.1, kg, 07/30/24 19:37:00 EDT, Weight Dosing promethazine, 12.5 mg = 1 supp, Rectal, q8hr, PRN as needed for nausea/vomiting, 3rd line, # 6 EA, Refills(s) 0, [id number] 157, cm, 07/30/24 [...] Level Saline Lock Insert Medications Administered Given [id number] [F] 1000 mg + GenDil 100 mL, IV Piggyback famotidine 10 mg/mL IV Lisa, 20 mg, IV Push NS 1000 ml Bolus, 1000 mL, IV [id number] [F] 12.5 mg + Sodium Chloride 0.9% IV Lisa 50 mL [F] 50 mL, IV Piggyback Disposition Plan Discharge Prescription List Prescriptions Phenergan 12.5 mg Supp, 12.5 mg= 1 supp, Rectal, q8hr, PRN promethazine 12.5 mg oral tablet, 12.5 mg= 1 tab(s), Oral, q8hr, PRN Zofran ODT 4 mg Tab-Dis, 4 mg= 1 tab(s), Or (more content not included)... Normal [facility] Comment on above: Result Comment: Elec tronically Signed By: Dustin Villalobos DO\.br\Date and Time Signed: 07/30/24 22:50 EDT ED Patient Summaryon 024 ED Patient Summary ED Patient Summary [place] [id number] Patient Discharge Instructions Person Information Name: PILI PARIKH Age: 19 Years Arrival Date: 07/30/2024 19:26:13 Discharge Diagnosis: AP (abdominal pain); N&V (nausea and vomiting) Primary Care Physician: MODESTA ARCHIBALD Provider Information Primary Provider: Dustin Villalobos DO Advanced Crew Truck Driver:None The exam and treatment you received in the Emergency Department were for an urgent problem and are not intended as complete care. It is important that you follow up with a doctor, nurse practitioner, or physician?s project assistant for ongoing care. If your symptoms [...] Follow-up Instructions: With: Address: When: FAMILIA CHAND [facility] [address] [address] Business (1) In 3 days 08/02/2024 In the event that this physician does not participate in your insurance network, please consult with your insurance company to find a nearby participating provider. Patient Education Materials: Nausea and Vomiting, Adult A MESSAGE TO ALL PATIENTS REGARDING OPIOIDS PRESCRIPTION OPIOIDS: WHAT YOU NEED TO KNOW Prescription opioids can be used to help relieve snilrsvk-eg-ntruqy pain and are often prescribed following a [...] be struggling with addiction, tell your health care program resident and ask for guidance or call [facility] (more content not included)... Normal [facility] HEMATOLOGYOrdered By: SYSTEM SYSTEM on 07-30-2024 Basophils/100 [...] 07-30-2024 Albumin [Mass/Vol] 4.7 g/dL Normal 3.3-5.0 [facility] Comment on above: Performed By: #### 2 [id number] #### [facility] [address] [place] [address] Albumin/Globulin (S) [Mass conc ratio] 1.7 Normal 1.1-2.2 [facility] Comment on above: Performed By: #### 2 071383 #### [facility] [address] [place] [address] ALP [Catalytic activity/Vol] 73 Int._Unit/L Normal 21-98 [facility] Comment on above: Performed By: #### 2 [id number] #### [facility] [address] [place] [address] ALT No additional P-5'-P [Catalytic activity/Vol] 46 Int._Unit/L Normal 6-46 [facility] Comment on above: Performed By: #### 2 683954 #### [facility] [address] [place] [address] AST [Catalytic activity/Vol] 24 Int._Unit/L Normal 5-43 [facility] Comment on above: Performed By: #### 2 808930 #### [facility] [address] [place] [address] Bilirubin [Mass/Vol] 0.7 mg/dL Normal 0.0-1.1 [facility] Comment on above: Performed By: #### 2 290191 #### [facility] [address] [place] [address] Bilirubin.direct [Mass/Vol] 0.1 mg/dL Normal 0.0-0.4 [facility] Comment on above: Performed By: #### 2 [id number] #### [facility] [address] [place] [address] Bilirubin.indirect [Mass or moles/Vol] 0.6 mg/dL Normal 0.1-0.9 [facility] Comment on above: Performed By: #### 2 917362 #### [facility] [address] [place] [address] Globulin (S) [Mass/Vol] 2.8 g/dL Normal 1.4-4.0 [facility] Comment on above: Performed By: #### 2 710569 #### [facility] [address] [place] [address] Protein [Mass/Vol] 7.5 g/dL Normal 6.0-7.8 [facility] Comment on above: Performed By: #### 2 378173 #### [facility] [address] [place] [address] Lipase Levelon 07-30-2024 Lipase [Catalytic activity/Vol] 10 U/L Low 13-58 [facility] Comment on above: Performed By: #### 2 184949 #### [facility] [address] [place] [address] Magnesiumon 07-30-2024 Magnesium [Mass/Vol] 2.2 mg/dL Normal 1.3-2.4 [facility] Comment on above: Performed By: #### 2 786981 #### [facility] [address] [place] [address] eGFRon 07-30-2024 eGFR 108 mL/min/1.73 m2 Normal >=59 [facility] Comment on above: Order Comment: Order added by Discern Expert. Performed By: #### 1 [id number] #### [facility] [address] [place] [address] Alanine aminotransferase [En zymatic activity/volume] in Serum or PlasmaOrdered By: Femi Benitez on 03-18-2024 ALT [Catalytic activity/Vol] 25 U/L 7-52 [facility] Albumin [Mass/volume] in Ser um or Plasma by Bromocresol green (BCG) dye binding methoOrdered By: Femi Benitez on 03-18-2024 Albumin BCG dye [Mass/Vol] 5.3 g/dL 3.5-5.7 [facility] Alkaline phosphatase [Enzyma tic activity/volume] in Serum or PlasmaOrdered By: Femi Benitez on 03-18-2024 ALP [Catalytic activity/Vol] 82 U/L 34-104 [facility] Aspartate aminotransferase [ Enzymatic activity/volume] in Serum or PlasmaOrdered By: Femi Benitez on 03-18-2024 AST [Catalytic activity/Vol] 23 U/L 13-39 [facility] Basophils Auto (Bld) [#/Vol] Ordered By: Femi Benitez on 03-18-2024 Basophils (Bld) [#/Vol] 0.1 10*3/uL 0.0-0.2 [facility] Basophils/100 WBC Auto (Bld) Ordered By: Femi Benitez on 03-18-2024 Basophils/100 WBC (Bld) 0.4 % . [facility] Bilirubin.total [Mass/volume ] in Serum or PlasmaOrdered By: Femi Benitez on 03-18-2024 Bilirubin [Mass/Vol] 0.9 mg/dL 0.3-1.0 [facility] Calcium [Mass/volume] in Ser um or PlasmaOrdered By: Femi Benitez on 03-18-2024 Calcium [Mass/Vol] 10.4 mg/dL 8.6-10.3 [facility] Carbon dioxide, total [Moles /volume] in Serum or PlasmaOrdered By: Femi Benitez on 03-18-2024 CO2 [Moles/Vol] 18.4 mmol/L 21.0-31.0 [facility] Chloride [Moles/volume] in S [place] or PlasmaOrdered By: Femi Benitez on 03-18-2024 Chloride [Moles/Vol] 94 mmol/L 98-107 [facility] Choriogonadotropin.beta subu nit [Units/volume] in Serum or PlasmaOrdered By: Femi Benitez on 03-18-2024 HCG.beta subunit Qn Negative [facility] Creatinine [Mass/volume] in Serum or PlasmaOrdered By: Femi Benitez on 03-18-2024 Creatinine [Mass/Vol] 0.80 mg/dL 0.60-1.20 [facility] Eosinophils Auto (Bld) [#/Vo l]Ordered By: Femi Benitez on 03-18-2024 Eosinophils (Bld) [#/Vol] 0.4 10*3/uL 0.0-0.45 [facility] Eosinophils/100 WBC Auto (Bl d)Ordered By: Femi Benitez on 03-18-2024 Eosinophils/100 WBC (Bld) 2.3 % . [facility] Erythrocyte distribution wid th Auto (RBC) [Ratio]Ordered By: Femi Benitez on 03-18-2024 Erythrocyte distribution width (RBC) [Ratio] 14.3 % 11.9-15.3 [facility] Globulin Calc (S) [Mass/Vol] Ordered By: Femi Benitez on 03-18-2024 Globulin (S) [Mass/Vol] 2.8 g/dL [facility] Glucose [Mass/volume] in Ser um or PlasmaOrdered By: Femi Benitez on 03-18-2024 Glucose [Mass/Vol] 95 mg/dL 70-100 [facility] Comment on above: ADA recommended refe rence rangeRandom Glucose Reference Range is dependent on time and content of last meal. Glucose of more than 200 mg/dL in a nonstressed, ambulatory subject supports the diagnosis of Diabetes Mellitus. Hematocrit Auto (Bld) [Volum e fraction]Ordered By: Femi Benitez on 03-18-2024 Hematocrit (Bld) [Volume fraction] 48.2 % 34.0-46.4 [facility] Hemoglobin [Mass/volume] in BloodOrdered By: Femi Benitez on 03-18-2024 Hemoglobin (Bld) [Mass/Vol] 16.3 g/dL 11.8-15.4 [facility] Leukocytes [#/volume] correc venkata for nucleated erythrocytes in Blood by Automated counOrdered By: Femi Benitez on 03-18-2024 WBC corrected for nucl RBC Auto (Bld) [#/Vol] 18.5 10*3/uL 3.8-11.6 [facility] Lymphocytes Auto (Bld) [#/Vo l]Ordered By: Femi Benitez on 03-18-2024 Lymphocytes (Bld) [#/Vol] 3.9 10*3/uL 1.00-4.8 [facility] Lymphocytes/100 WBC Auto (Bl d)Ordered By: Femi Benitez on 03-18-2024 Lymphocytes/100 WBC (Bld) 20.9 % . [facility] MCH Auto (RBC) [Entitic mass ]Ordered By: Femi Benitez on 03-18-2024 MCH (RBC) [Entitic mass] 28.2 pg 24.7-34.3 [facility] MCHC Auto (RBC) [Mass/Vol]Or dered By: Femi Benitez on 03-18-2024 MCHC (RBC) [Mass/Vol] 33.9 g/dL 32.0-35.0 [facility] MCV Auto (RBC) [Entitic vol] Ordered By: Femi Benitez on 03-18-2024 MCV (RBC) [Entitic vol] 83.2 fL 80-100 [facility] Monocyte distribution width [Entitic volume] in Blood by AutomatedOrdered By: Femi Benitez on 03-18-2024 Monocyte distribution width Auto (Bld) [Entitic vol] 16.34 % 0.00-20.00 [facility] Monocytes Auto (Bld) [#/Vol] Ordered By: Femi Benitez on 03-18-2024 Monocytes (Bld) [#/Vol] 1.4 10*3/uL 0.0-0.8 [facility] Monocytes/100 WBC Auto (Bld) Ordered By: Femi Benitez on 03-18-2024 Monocytes/100 WBC (Bld) 7.6 % . [facility] Neutrophils Auto (Bld) [#/Vo l]Ordered By: Femi Benitez on 03-18-2024 Neutrophils (Bld) [#/Vol] 12.7 10*3/uL 1.8-7.7 [facility] Neutrophils/100 WBC Auto (Bl d)Ordered By: Femi Benitez on 03-18-2024 Neutrophils/100 WBC (Bld) 68.8 % . [facility] No Panel InformationOrdered By: Femi Benitez on 03-18-2024 Estimated GFR (CKD-EPI) > 60.0 mL/Min [facility] Creatinine Clearance (Chem 120.98 [facility] Nucleated erythrocytes [Pres ence] in Blood by Automated countOrdered By: Femi Benitez on 03-18-2024 Nucleated RBC Auto Ql (Bld) 0.1 /100{WBC} 0-0.5 [facility] Platelet mean volume Auto (B ld) [Entitic vol]Ordered By: Femi Benitez on 03-18-2024 Platelet mean volume (Bld) [Entitic vol] 8.5 fL 6.3-10.7 [facility] Platelets Auto (Bld) [#/Vol] Ordered By: Femi Benitez on 03-18-2024 Platelets (Bld) [#/Vol] 358 10*3/uL 150-450 [facility] Potassium [Moles/volume] in Serum or PlasmaOrdered By: Femi Benitez on 03-18-2024 Potassium [Moles/Vol] See comment 3.5-5.1 [facility] Comment on above: Specimen hemolyzed, redraw requestedResults calledat 2349 on 03/18/24 Protein [Mass/volume] in Ser um or PlasmaOrdered By: Femi Benitez on 03-18-2024 Protein [Mass/Vol] 8.1 g/dL 6.4-8.9 [facility] RBC Auto (Bld) [#/Vol]Ordere d By: Femi Benitez on 03-18-2024 RBC (Bld) [#/Vol] 5.79 10*6/uL 3.60-5.00 [facility] Serum or plasma albumin/glob ulin mass ratioOrdered By: Femi Benitez on 03-18-2024 Albumin/Globulin [Mass ratio] 1.9 {ratio} [facility] Serum or plasma anion gap de terminationOrdered By: Femi Benitez on 03-18-2024 Anion gap [Moles/Vol] TNP [facility] Comment on above: Test not performed Sodium [Moles/volume] in Ser um or PlasmaOrdered By: Femi Benitez on 03-18-2024 Sodium [Moles/Vol] 134 mmol/L 136-145 [facility] Urea nitrogen [Mass/volume] in Serum or PlasmaOrdered By: Femi Benitez on 03-18-2024 Urea nitrogen [Mass/Vol] 27 mg/dL 7-25 [facility] WBC Auto (Bld) [#/Vol]Ordere d By: Femi Benitez on 03-18-2024 WBC (Bld) [#/Vol] 18.5 10*3/uL 3.8-11.6 [facility] CBC w/ Auto Diffon Basophils/100 WBC (Bld) 0.4 % Normal 0.0-2.0 [facility] Comment on above: Performed By: #### 2 733395, 80844026, 1139255, 2455594 ####[facility] [address] [place] [address] Basophils/Leukocytes Auto (Bld) [Pure # fraction] 0.1 E9/L Normal 0.0-0.2 [facility] Comment on above: Performed By: #### 2 836375, 57169202, 5623509, 6769405 ####[facility] [address] [place] [address] Eosinophils (Bld) [#/Vol] 0.0 E9/L Normal 0.0-0.5 [facility] Comment on above: Performed By: #### 2 397380, 73464711, 5896023, 5645605 ####[facility] [address] [place] [address] Eosinophils/100 WBC (Bld) 0.3 % Normal 0.0-8.0 [facility] Comment on above: Performed By: #### 2 109866, 03961701, 1245934, 8483700 ####[place] [address] [place] [address] Erythrocyte distribution width (RBC) [Ratio] 14.1 % Normal 10.9-14.2 [facility] Comment on above: Performed By: #### 2 687437, 51263827, 8664292, 6415767 ####[address] [address] Hematocrit (Bld) [Volume fraction] 44.0 % Normal 34.0-46.0 [facility] Comment on above: Performed By: #### 2 329055, 38319425, 7426596, 3342415 ####[address] [address] Hemoglobin (Bld) [Mass/Vol] 14.4 g/dL Normal 12.0-16.0 [facility] Comment on above: Performed By: #### 2 294507, 17076711, 5384121, 4757375 ####[address] [address] Lymphocytes (Bld) [#/Vol] 2.2 E9/L Normal 1.0-4.0 [facility] Comment on above: Performed By: #### 2 019115, 08858933, 2282706, 0892121 ####[address] [address] Lymphocytes/100 WBC (Bld) 15.8 % Normal 14.0-50.0 [facility] Comment on above: Performed By: #### 2 977510, 77660204, 7806207, 3639303 ####[address] [address] MCH (RBC) [Entitic mass] 27.8 pg Normal 27.0-34.0 [facility] Comment on above: Performed By: #### 2 249106, 17040944, 8580886, 7052356 ####[address] [address] MCHC (RBC) [Mass/Vol] 32.6 g/dL Normal 31.4-36.0 [facility] Comment on above: Performed By: #### 2 313116, 51421687, 1252033, 1901644 ####[facility] [address] [place] [address] MCV (RBC) [Entitic vol] 85.2 fL Normal 80.0-100.0 [facility] Comment on above: Performed By: #### 2 790356, 74438268, 8321427, 0726355 ####[address] [address] Monocytes (Bld) [#/Vol] 1.1 E9/L High 0.2-1.0 [facility] Comment on above: Performed By: #### 2 056035, 05886228, 2105484, 0829272 ####[address] [address] Neutrophils (Bld) [#/Vol] 10.6 E9/L High 2.0-7.5 [facility] Comment on above: Performed By: #### 2 106111, 20195486, 4785419, 9173286 ####[address] [address] Neutrophils/100 WBC (Bld) 75.9 % High 36.0-75.0 [facility] Comment on above: Performed By: #### 2 109895, 39333081, 6937385, 8750799 ####[address] [address] Platelet mean volume (Bld) [Entitic vol] 8.4 fL Normal 6.4-10.8 [facility] Comment on above: Performed By: #### 2 278789, 82257215, 8098555, 4868033 ####[address] [address] Platelets (Bld) [#/Vol] 276.0 E9/L Normal 150.0-500. 0 [facility] Comment on above: Performed By: #### 2 197558, 59157853, 8557727, 1676879 ####[facility] [address] [place] [address] RBC (Bld) [#/Vol] 5.2 E12/L Normal 4.3-5.9 [facility] Comment on above: Performed By: #### 2 546755, 94102344, 2763022, 9449201 ####[facility] [address] [place] [address] WBC corrected for nucl RBC Auto (Bld) [#/Vol] 14.0 E9/L High 4.0-11.0 [facility] Comment on above: Performed By: #### 2 236048, 97372884, 2873810, 8545872 ####[facility] [address] [place] [address] CHEMISTRYOrdered By: SYSTEM SYSTEM on 03-15-2024 Albumin [...] 03-15-2024 Chloride [Moles/Vol] 99 mmol/L Low 101-111 [facility] Comment on above: Performed By: #### 2 941988, 63716914, 2554749, 9509550 ####[facility] [address] [place] [address] Potassium [Moles/Vol] 3.3 mmol/L Low 3.5-5.3 [facility] Comment on above: Performed By: #### 2 637348, 27106289, 5989391, 6705853 ####[facility] [address] [place] [address] Sodium [Moles/Vol] 137 mmol/L Normal 135-145 [facility] Comment on above: Performed By: #### 2 490903, 71091919, 6479715, 1178886 ####[facility] [address] [place] [address] Anion gap [Moles/Vol] 22 mmol/L High 6-16 [facility] Comment on above: Performed By: #### 2 892034, 74582541, 2826531, 9323752 ####[address] [address] CO2 [Moles/Vol] 19 mmol/L Low 21-31 [facility] Comment on above: Performed By: #### 2 445051, 39984212, 9879139, 5279139 ####[address] [address] Albumin [Mass/Vol] 5.0 g/dL Normal 3.3-5.0 [facility] Comment on above: Performed By: #### 2 221055, 38940627, 5247325, 1815681 ####[address] [address] Albumin/Globulin (S) [Mass conc ratio] 1.8 Normal 1.1-2.2 [facility] Comment on above: Performed By: #### 2 166407, 25467551, 0728481, 2023230 ####[address] [address] ALP [Catalytic activity/Vol] 69 Int._Unit/L Normal 21-98 [facility] Comment on above: Performed By: #### 2 091145, 22376190, 4871755, 8987518 ####[address] [address] ALT No additional P-5'-P [Catalytic activity/Vol] 31 Int._Unit/L Normal 6-46 [facility] Comment on above: Performed By: #### 2 393692, 77532574, 7042576, 9350028 ####[address] [address] AST [Catalytic activity/Vol] 19 Int._Unit/L Normal 5-43 [facility] Comment on above: Performed By: #### 2 122723, 19008655, 0713201, 5412224 ####[address] [place] [address] Bilirubin [Mass/Vol] 0.8 mg/dL Normal 0.0-1.1 [facility] Comment on above: Performed By: #### 2 353071, 85055006, 3696197, 0930619 ####[facility] [address] [place] [address] Calcium [Mass/Vol] 10.4 mg/dL Normal 8.9-11.1 [facility] Comment on above: Performed By: #### 2 416086, 68293738, 5710711, 1608846 ####[facility] [address] [place] [address] Creatinine [Mass/Vol] 0.8 mg/dL Normal 0.5-1.3 [facility] Comment on above: Performed By: #### 2 675816, 63634810, 1664926, 2097810 ####[facility] [address] [place] [address] Globulin (S) [Mass/Vol] 2.8 g/dL Normal 1.4-4.0 [facility] Comment on above: Performed By: #### 2 904333, 11275365, 5277837, 8807945 ####[facility] [address] [place] [address] Glucose [Mass/Vol] 86 mg/dL Normal 55-199 [facility] Comment on above: Performed By: #### 2 287470, 73461082, 9550346, 9583797 ####[facility] [address] [place] [address] Protein [Mass/Vol] 7.8 g/dL Normal 6.0-7.8 [facility] Comment on above: Performed By: #### 2 694610, 90050802, 5248142, 3112698 ####[facility] [address] [place] [address] Urea nitrogen [Mass/Vol] 24 mg/dL High 5-21 [facility] Comment on above: Performed By: #### 2 808804, 01579379, 3543411, 7011338 ####[facility] [address] [place] [address] Urea nitrogen/Creatinine [Mass ratio] 30 No Units High 10-20 [facility] Comment on above: Performed By: #### 2 920384, 70138952, 6676097, 8740850 ####[facility] [address] [place] [address] CT Chest w/ Contraston 03-15 CT Chest [...] 300 Contrast amount in ml's: 100 Normal [facility] Consent for Treatmenton 02-26 Consent for Treatment [id number] Normal [facility] Discharge Instructionson Discharge Instructions [id number] Normal [facility] ED Clinical Summaryon 2023 ED Clinical Summary (Inserted Image. Vesta ble to display) [place] [id number] ED Clinical Summary Person Information Name: PILI PARIKH/[facility] Age: 19 Years : 2005 Sex: Female Language: Tongan PCP: MODESTA ARCHIBALD Marital Status: Single Visit [...] 03/15/2024 13:49:40 03/15/2024 13:49:40 03/15/2024 13:49:40 ADDRESS: [address] [place] [id number] PHYS DOC NOTES: MEDICAL INFORMATION: Prescriptions Given: Medications to Continue with No Changes Other Medications acetaminophen-hydrocodone ([place] 325 mg-5 mg oral tablet) 1 Tablets [...] symptoms. DIAGNOSIS: 1:Nausea and vomiting; 2:Pneumomediastinum Normal [facility] ED Note-Physicianon 03-15-20 24 ED Note-Physician Basic [...] Diagnosis: [] [facility] Data External documents reviewed: [] My EKG [...] Return to (more content not included)... Normal [facility] Comment on above: Result Comment: Elec tronically [...] added (diluted fruit juice). ? Eat bland, xhit-co-johkhu foods in small amounts as you are able. These foods include bananas, applesauce, rice, lean meats, toast, and crackers. ? Avoid fluids that contain a lot of sugar or caffeine, such as energy drinks, sports drinks, and soda. ? Avoid alcohol. ? Avoid spicy or fatty foods. General instructions ? Take oksb-xjt-imkzrxv and prescription medicines only as told by your health care provider. ? Drink enough fluid to keep your urine pale yellow. ? Wash your hands often using soap and water for at least 20 seconds. If soap and water are not available, use hand nursing home aide. ? Make sure that everyone in your [...] and drinking to prevent dehydration. ? Take ysec-eko-ggykhdq and prescription medicines only as told by [...] provider. Document Revised: 05/21/2022 Document Reviewed: 05/21/2022 [employer] Patient Education ? 2022 [employer]. Radiology Pneumomediastinum Pneumomediastinum is the presence of [...] marijuana. Spontane (more content not included)... Normal [facility] ED Patient Summaryon 024 ED Patient Summary (Inserted Image. Vesta ble to display) [address] [address] Patient Discharge Instructions Person Information Name: PILI PARIKH Age: 19 Years Arrival Date: 03/15/2024 10:32:10 Discharge Diagnosis: 1:Nausea and vomiting; 2:Pneumomediastinum Primary Care Physician: MODESTA ARCHIBALD Provider Information Primary Provider: August Bermudez M.D. Advanced Crew Truck Driver:None The exam and treatment you received in the Emergency Department were for an urgent problem and are not intended as complete care. It is important that you follow up with a doctor, nurse practitioner, or physician?s project assistant for ongoing care. If your symptoms [...] opioids can be used to help relieve qknhgavy-am-npgsdn pain and are often prescribed following a [...] be strugg (more content not included)... Normal [facility] HEMATOLOGYOrdered By: SYSTEM SYSTEM on 03-15-2024 Basophils/100 [...] 03-15-2024 Magnesium [Mass/Vol] 2.2 mg/dL Normal 1.3-2.4 [facility] Comment on above: Performed By: #### 2 552894, 39912213, 3470935, 9186603 ####[facility] [address] [place] [address] eGFRon 03-15-2024 eGFR 108 mL/min/1.73 m2 Normal >=59 [facility] Comment on above: Order Comment: Order added by Discern Expert. Performed By: #### 2 619494, 37935138, 5766619, 7448280 ####[facility] [address] [place] [address] CT Abdomen/Pelvis w/ Contras ton 03-14-2024 CT [...] Contrast amount in ml's: 130 Normal [facility] CT Chest w/ Contraston 03-14 CT [...] 300 Contrast amount in ml's: 130 Normal [facility] CT Head or Brain w/o Contras ton [...] M.D. Transcribed by: KIRA Technologist: RAVEN Normal [facility] CT Spine Cervical w/o Contra ston 03-14-2024 [...] M.D. Transcribed by: KIRA Technologist: RAVEN Normal [facility] EMS Documentationon 03-14-20 EMS Documentation Please click on link to see report Normal [facility] Comment on above: Result Comment: Miss ing [...] mGy = na DAP = na Normal [facility] ABO/Rhon 03-13-2024 ABO/Rh Positive Invalid Interpretation Code [facility] Comment on above: Performed By: #### 2 087076, 88870674, 58186370, 21943261 ####[facility] [address] [place] [address] ABO/Rh History Checkon 03-13 ABO/Rh History Check Patient discharged prior Normal [facility] Comment on above: Performed By: #### 2 644626, 57767597, 80375748, 67098354 ####[facility] [address] [place] [address] ABSCon 03-13-2024 ABSC Gel Interp Negative Normal [facility] Comment on above: Performed By: #### 2 351836, 44694427, 04814767, 93803739 ####[facility] [address] [place] [address] B hCG Qualon 03-13-2024 Beta HCG ( test) Ql Negative Normal [facility] Comment on above: Performed By: #### 2 4033586, 7032943, 3821509, 5522023, 2595337, 09788503, 41201168, 3354428, 9777209 ####[facility] [address] [place] [address] BLOOD BANKOrdered By: Scarlet Lindquist on 03-13-2024 ABO/Rh Interp Positive Invalid Interpretation Code [facility] BB Subsection ABSC Gel Interp Negative (03/13/24 6:53 PM) Normal [facility] BB Subsection BMPon 03-13-2024 Anion gap [Moles/Vol] 16 mmol/L Normal 05-13 [facility] Comment on above: Performed By: #### 2 2365619, 1441402, 1753868, 7906068, 4429999, 59905874, 40223808, 5036818, 9013570 ####[facility] [address] [place] [address] Calcium [Mass/Vol] 10.8 mg/dL Normal 8.9-11.1 [facility] Comment on above: Performed By: #### 2 8907115, 1326586, 1079340, 3915123, 1604294, 93144381, 12015109, 2654623, 0984912 ####[facility] [address] [place] [address] Chloride [Moles/Vol] 105 mmol/L Normal 101-111 [facility] Comment on above: Performed By: #### 2 5138687, 6823485, 4070790, 8966641, 1398215, 56434381, 48701962, 5462428, 4132201 ####[facility] [address] [place] [address] CO2 [Moles/Vol] 25 mmol/L Normal 21-31 [facility] Comment on above: Performed By: #### 2 2066981, 0799093, 9965169, 3421305, 9506681, 83543337, 60272404, 0890918, 5106168 ####[facility] [address] [place] [address] Creatinine [Mass/Vol] 0.9 mg/dL Normal 0.5-1.3 [facility] Comment on above: Performed By: #### 2 1815144, 6191986, 7291599, 7298006, 7990219, 16022644, 68814670, 5517305, 8173280 ####[facility] [address] [place] [address] Glucose [Mass/Vol] 100 mg/dL Normal 55-199 [facility] Comment on above: Performed By: #### 2 7193961, 3375511, 5612138, 7687866, 8506067, 23325914, 68326915, 5391550, 5303867 ####[facility] [address] [place] [address] Potassium [Moles/Vol] 3.3 mmol/L Low 3.5-5.3 [facility] Comment on above: Performed By: #### 2 0209956, 6703026, 7835565, 6821009, 1172775, 23491866, 48081586, 1712052, 8971346 ####[facility] [address] [place] [address] Sodium [Moles/Vol] 143 mmol/L Normal 135-145 [facility] Comment on above: Performed By: #### 2 9342055, 7758772, 9090834, 9857129, 0726992, 64377186, 28513956, 1227251, 2449637 ####[facility] [address] [place] [address] Urea nitrogen [Mass/Vol] 24 mg/dL High 5-21 [facility] Comment on above: Performed By: #### 2 2163768, 6423539, 2313294, 1381913, 1822236, 69832587, 73907708, 2707334, 3805737 ####[facility] [address] [place] [address] Urea nitrogen/Creatinine [Mass ratio] 27 No Units High 10-20 [facility] Comment on above: Performed By: #### 2 2726194, 0639266, 5803722, 3681918, 1063440, 87778059, 11609816, 2398663, 2702568 ####[facility] [address] [place] [address] Blood Bank ID#on 03-13-2024 BBID# [id number] Invalid Interpretation Code [facility] Comment on above: Performed By: #### 2 262585, 84829640, 26286849, 79061836 ####[address] [address] CBC w/ Auto Diffon 4 Basophils/100 WBC (Bld) 0.4 % Normal 0.0-2.0 [facility] Comment on above: Performed By: #### 2 8149985, 1901447, 8731577, 8632200, 6017055, 12704166, 54296036, 6147085, 3097229 ####[address] [address] Basophils/Leukocytes Auto (Bld) [Pure # fraction] 0.1 E9/L Normal 0.0-0.2 [facility] Comment on above: Performed By: #### 2 9038777, 1305028, 1981975, 1894004, 3845599, 94812427, 67007971, 8307220, 3890921 ####[address] [address] Eosinophils (Bld) [#/Vol] 0.0 E9/L Normal 0.0-0.5 [facility] Comment on above: Performed By: #### 2 0914433, 0830160, 0757711, 4211924, 9594220, 68296276, 32016746, 0580038, 2811377 ####[address] [address] Eosinophils/100 WBC (Bld) 0.1 % Normal 0.0-8.0 [facility] Comment on above: Performed By: #### 2 8283380, 3627396, 1505201, 3552542, 7006602, 57165170, 24186767, 3008538, 5661452 ####[place] [address] [place] [address] Erythrocyte distribution width (RBC) [Ratio] 14.4 % High 10.9-14.2 [facility] Comment on above: Performed By: #### 2 3684953, 8121058, 8242783, 5973489, 9410599, 39553844, 58950550, 5643060, 2048322 ####[address] [address] Hematocrit (Bld) [Volume fraction] 42.5 % Normal 34.0-46.0 [facility] Comment on above: Performed By: #### 2 7696838, 0635348, 7102063, 8979554, 8815706, 45183541, 69188023, 5057390, 3655656 ####[address] [address] Hemoglobin (Bld) [Mass/Vol] 14.0 g/dL Normal 12.0-16.0 [facility] Comment on above: Performed By: #### 2 0373249, 0104298, 2212767, 2135164, 4426040, 80604985, 65682696, 4908993, 7628923 ####[address] [address] Lymphocytes (Bld) [#/Vol] 2.3 E9/L Normal 1.0-4.0 [facility] Comment on above: Performed By: #### 2 2543132, 4398654, 0534297, 4788357, 7689322, 10752272, 77789076, 2890424, 6583386 ####[address] [address] Lymphocytes/100 WBC (Bld) 11.8 % Low 14.0-50.0 [facility] Comment on above: Performed By: #### 2 4577229, 2363128, 4890559, 8514342, 3760233, 89118511, 86715346, 4568125, 3882581 ####[address] [place] [address] MCH (RBC) [Entitic mass] 27.6 pg Normal 27.0-34.0 [facility] Comment on above: Performed By: #### 2 0944114, 6597332, 7274339, 9298296, 3680245, 57091283, 41013517, 2481609, 3698190 ####[address] [address] MCHC (RBC) [Mass/Vol] 32.9 g/dL Normal 31.4-36.0 [facility] Comment on above: Performed By: #### 2 3579653, 6336311, 8276722, 1200929, 2452345, 60858963, 51159940, 3826654, 1552540 ####[address] [address] MCV (RBC) [Entitic vol] 83.8 fL Normal 80.0-100.0 [facility] Comment on above: Performed By: #### 2 5466912, 0430163, 3194483, 2382658, 6882017, 65949702, 20374917, 3534101, 9163774 ####[address] [address] Monocytes (Bld) [#/Vol] 1.4 E9/L High 0.2-1.0 [facility] Comment on above: Performed By: #### 2 0767036, 7978468, 7703049, 0173813, 2728504, 66912378, 00354045, 3717585, 9772371 ####[address] [address] Neutrophils (Bld) [#/Vol] 15.5 E9/L High 2.0-7.5 [facility] Comment on above: Performed By: #### 2 7277883, 0498688, 6464985, 7022733, 3830029, 39415396, 40153452, 1801412, 5411529 ####[address] [place] [address] Neutrophils/100 WBC (Bld) 80.6 % High 36.0-75.0 [facility] Comment on above: Performed By: #### 2 7354621, 0832199, 2144236, 5915662, 3866727, 41899311, 46095632, 3026741, 2835443 ####[address] [address] Platelet mean volume (Bld) [Entitic vol] 8.4 fL Normal 6.4-10.8 [facility] Comment on above: Performed By: #### 2 8701353, 4796626, 4962084, 0382077, 7344626, 42031510, 84243760, 3246941, 3930904 ####[address] [address] Platelets (Bld) [#/Vol] 356.0 E9/L Normal 150.0-500. 0 [facility] Comment on above: Performed By: #### 2 3771360, 8976310, 5200782, 9543177, 4963558, 03640865, 03646861, 8320884, 9405572 ####[address] [address] RBC (Bld) [#/Vol] 5.1 E12/L Normal 4.3-5.9 [facility] Comment on above: Performed By: #### 2 6721615, 3295403, 1918329, 8977375, 2594124, 18114650, 30918534, 1554318, 7203293 ####[address] [address] WBC corrected for nucl RBC Auto (Bld) [#/Vol] 19.3 E9/L High 4.0-11.0 [facility] Comment on above: Result Comment: Slid e review performed Performed By: #### 2 8889600, 8726299, 9406851, 1956815, 3385774, 93111927, 95091657, 5022868, 2689681 ####[facility] [address] [place] [address] CHEMISTRYOrdered By: SYSTEM SYSTEM on 03-13-2024 Albumin [...] Sensitivity Troponin I Instructions For Use, Sugar [place], June 2018) Urea nitrogen [Mass/Vol] 24 mg/dL High 5 - 21 mg/dL Remisol Chem Urea nitrogen/Creatinine [Mass ratio] 27 mg/mg High 10 - 20 Remisol [facility] COAGULATIONOrdered By: Jefe Mccain on 03-13-2024 aPTT Coag (PPP) [Time] 32.8 s Normal 25.1 - 36.5 second(s) [facility] Auto Coag Comment on above: Interpretive Data: [...] the same coagulation reagent and instrumentation as [facility]. Currently there are no coagulation studies available worldwide for children to 14 days, and no normal ranges. Heparin therapeutic range (represented by Anti-Factor Xa activity of 0.2 - 0.4 U/mL) corresponds to PTT of 56.6 - 109.0 sec. INR Coag (PPP) [Relative time] 1.11 {INR} Invalid Interpretation Code [facility] Auto Coag Comment on above: Interpretive Data: I NR results are specifically intended to assess patients stabilized on long-term Anticoagulation therapy suggested INR s Less Intensive Anticoagulation 2.0 3.0 Conventional Range 3.0 4.5 PT Coag (PPP) [Time] 12.4 s Normal 9.4 - 1 2.5 second(s) [facility] Auto Coag Comment on above: Interpretive Data: [...] the same coagulation reagent and instrumentation as [facility]. Currently there are no coagulation studies available worldwide for children to 14 days, and no normal ranges. Consent for Treatmenton 02-26 Consent for Treatment [id number]#1.00TIFF Normal [facility] Discharge Instructionson Discharge Instructions [id number]#1.00TIFF Normal [facility] ED Clinical Summaryon 2023 ED Clinical Summary (Inserted Image. Vesta ble to display) [address] [address] ED Clinical Summary Person Information Name: PILI PARIKH/[facility]_Anthony Age: 19 Years : 2005 Sex: Female Language: Tongan PCP: MODESTA ARCHIBALD Marital Status: Single Visit [...] 03/13/2024 22:27:59 03/13/2024 22:27:59 ADDRESS: [address] [id number] PHYS DOC NOTES: MEDICAL INFORMATION: Prescriptions Given: New Medications [id number], [address], [place] [phone], [phone] acetaminophen-hydrocodone ([place] 325 mg-5 mg oral tablet) 1 Tablets [...] EDUCATION INFORMATION: Instructions: Nausea and Vomiting, Adult, Knzj-xa-Oxba; Muscle Strain, Wudj-gy-Frvn Follow up: With: Address: When: MODESTA ARCHIBALD [address] [place], [place] [phone] Business (1) In 3 days 03/16/2024 Comments: [...] Back strain; N&V (nausea and vomiting) Normal [facility] ED Note-Physicianon 03-13-20 ED Note-Physician Basic Information [...] EDT, STA (more content not included)... Normal [facility] Comment on above: Result Comment: Elec tronically [...] ? Low-calorie sports drinks. ? Eat bland, uhuz-hf-shhlvj foods in small amounts as you are able, such as: ? Bananas. ? Applesauce. ? Rice. ? Low-fat (lean) meats. ? [place]. ? Crackers. ? Avoid drinking fluids that have a lot of sugar or caffeine in them. This includes energy drinks, sports drinks, and soda. ? Avoid alcohol. ? Avoid spicy or fatty foods. General instructions ? Take sedt-bfj-rtvlixv and prescription medicines only as told by your doctor. ? Drink enough fluid to keep your pee (urine) pale yellow. ? Wash your hands often with soap and water for at least 20 seconds. If you cannot use soap and water, use hand nursing home aide. ? Make sure that everyone in your [...] doctor about eating and drinking. ? Take pqso-giw-pzgupfv and prescription medicines only as told by your doctor. ? Contact your doctor if your symptoms get worse or you have new symptoms. ? Keep all follow-up visits. This information is not intended to replace advice given to you by your health care provider. Make sure you discuss any questions you have with your health care provider. Document Revised: 05/21/2022 Document Reviewed: 05/21/2022 [employer] Patient Education ? 2022 [employer] Orthopedics Muscle Strain A muscle strain, or [...] your m (more content not included)... Normal [facility] ED Patient Summaryon 024 ED Patient Summary (Inserted Image. Vesta ble to display) [place] [id number] Patient Discharge Instructions Person Information Name: PILI PARIKH Age: 19 Years Arrival Date: 03/13/2024 17:33:02 Discharge Diagnosis: 1:Fall down stairs; Abnormal CT scan, chest; Back strain; N&V (nausea and vomiting) Primary Care Physician: MODESTA ARCHIBALD Provider Information Primary Provider: Femi Roman DO Advanced Crew Truck Driver:Gasper Lang PA-C The exam and treatment you received in the Emergency Department were for an urgent problem and are not intended as complete care. It is important that you follow up with a doctor, nurse practitioner, or physician?s project assistant for ongoing care. If your symptoms [...] Follow-up Instructions: With: Address: When: MO[address]STA [address] [place] [phone] Business (1) In 3 days 03/16/2024 Comments: [...] Patient Education Materials: Nausea and Vomiting, Adult, Wfyu-xs-Jwfz; Muscle Strain, Ujfc-jt-Srds A MESSAGE TO ALL PATIENTS REGARDING OPIOIDS PRESCRIPTION OPIOIDS: WHAT YOU NEED TO KNOW Prescription opioids can be used to help relieve whlamrhf-hb-jzzyhe pain and are often prescribed following a [...] them juan (more content not included)... Normal [facility] ED Traumaon 03-13-2024 ED Trauma [id number]#[id number] Normal [facility] Ethanolon 03-13-2024 Ethanol Lvl <10 Normal <=11 [facility] Comment on above: Performed By: #### 2 087466 ####[facility] [address] [place] [address] HEMATOLOGYOrdered By: SYSTEM SYSTEM on 03-13-2024 Basophils/100 [...] 03-13-2024 Albumin [Mass/Vol] 5.4 g/dL High 3.3-5.0 [facility] Comment on above: Performed By: #### 2 7171321, 7760622, 6798560, 0803690, 0154505, 52666509, 67223458, 7246463, 5117190 ####[facility] [address] [place] [address] Albumin/Globulin (S) [Mass conc ratio] 1.8 Normal 1.1-2.2 [facility] Comment on above: Performed By: #### 2 6086651, 7238530, 9399863, 7996116, 3003783, 73488049, 50301901, 1667310, 8963972 ####[facility] [address] [place] [address] ALP [Catalytic activity/Vol] 82 Int._Unit/L Normal 21-98 [facility] Comment on above: Performed By: #### 2 4741673, 7024124, 8773292, 6080682, 6076092, 95643702, 49222432, 3368494, 6553214 ####[facility] [address] [place] [address] ALT No additional P-5'-P [Catalytic activity/Vol] 44 Int._Unit/L Normal 6-46 [facility] Comment on above: Performed By: #### 2 7852316, 7321934, 4877929, 2028369, 8899692, 26057710, 29742254, 0980716, 5316454 ####[facility] [address] [place] [address] AST [Catalytic activity/Vol] 23 Int._Unit/L Normal 5-43 [facility] Comment on above: Performed By: #### 2 7347047, 4409142, 1230378, 5010392, 7258031, 98541531, 11456958, 3900731, 8358854 ####[facility] [address] [place] [address] Bilirubin [Mass/Vol] 0.8 mg/dL Normal 0.0-1.1 [facility] Comment on above: Performed By: #### 2 1482895, 9763606, 6801417, 6868232, 5109058, 79584937, 34089542, 0238307, 3004805 ####[facility] [address] [place] [address] Bilirubin.direct [Mass/Vol] 0.2 mg/dL Normal 0.0-0.4 [facility] Comment on above: Performed By: #### 2 2724729, 2828456, 5742035, 2756760, 0096917, 91659224, 77497729, 3893210, 3266128 ####[place] [address] Bilirubin.indirect [Mass or moles/Vol] 0.6 mg/dL Normal 0.1-0.9 [facility] Comment on above: Performed By: #### 2 1034411, 0176680, 4279271, 2558750, 6146762, 65184792, 92031182, 5122785, 2618646 ####[address] [address] Globulin (S) [Mass/Vol] 3.0 g/dL Normal 1.4-4.0 [facility] Comment on above: Performed By: #### 2 5250680, 2093536, 6251283, 1319075, 9059600, 32979806, 42746558, 3897587, 2146566 ####[facility] [address] [place] [address] Protein [Mass/Vol] 8.4 g/dL High 6.0-7.8 [facility] Comment on above: Performed By: #### 2 5052911, 5759196, 5982925, 2871612, 4935663, 10909677, 02458567, 8372884, 7861724 ####[address] [address] Lactic Acidon 03-13-2024 Lactic Acid Lvl 1.7 mmol/L Normal 0.5-2.2 [facility] Comment on above: Performed By: #### 2 8965350, 3427756, 0718098, 5930865, 9824734, 82628742, 61033205, 8789740, 9719049 ####[facility] [address] [place] [address] Lipase Levelon 03-13-2024 Lipase [Catalytic activity/Vol] 14 U/L Normal 13-58 [facility] Comment on above: Performed By: #### 2 2223795, 2949099, 0035320, 4003043, 1544798, 81426656, 48314550, 3883325, 7243167 ####[facility] [address] [place] [address] Monitor Recordon 03-13-2024 Monitor Record [id number]#1.00TIFF Normal [facility] Monitor Record [id number]#1.00TIFF Normal [facility] PT & PTTon 03-13-2024 aPTT Coag (PPP) [Time] 32.8 second(s) Normal 25.1-36.5 [facility] Comment on above: Result Comment: Para meter [...] the same coagulation reagent and instrumentation as [facility]. Currently there are no coagulation studies available worldwide for children to 14 days, and no normal ranges. Heparin therapeutic range (represented by Anti-Factor Xa activity of 0.2 - 0.4 U/mL) corresponds to PTT of 56.6 - 109.0 sec. Performed By: #### 2 5488673, 7662458, 6156230, 6945099, 8364043, 95773063, 26636804, 4496754, 6561773 ####[facility] [address] [place] [address] INR Coag (PPP) [Relative time] 1.11 {INR} Invalid Interpretation Code [facility] Comment on above: Result Comment: INR results are specifically intended to assess patients stabilized on long-term Anticoagulation therapy suggested INR?s ?Less Intensive Anticoagulation? 2.0 ? 3.0 Conventional Range 3.0 ? 4.5 Performed By: #### 2 4241665, 1220543, 5754209, 5347342, 0816642, 64739620, 94431261, 3878008, 4159064 ####[facility] [address] [place] [address] PT Coag (PPP) [Time] 12.4 second(s) Normal 9.4-12.5 [facility] Comment on above: Result Comment: 15 d [...] the same coagulation reagent and instrumentation as [facility]. Currently there are no coagulation studies available worldwide for children to 14 days, and no normal ranges. Performed By: #### 2 8069518, 3139649, 6570107, 5238698, 6953561, 06208424, 99885425, 3308629, 6532471 ####[facility] [address] [place] [address] Pre-Arrival Noteon Pre-Arrival Note Pre-Arrival Summary Name: LOS Current Date: 03/13/2024 17:34:24 EDT Gender: Female Date of : Age: 19 Pre-Arrival Type: EMS ETA: 03/13/2024 17:59:00 EDT Primary Care Physician: Presenting Problem: fall down 10 stairs Pre-Arrival User: Payal Robison RN Referring Source: Location: Completion Date/Time: 03/13/2024 17:29:00 [facility] Emergency Department Pre-Hospital Report Form Vital Signs: 127/83; 66; 17; 96%; GCS 15 Pre-Hospital Report: Treatment in Route: C-COLLAR Response to Treatment: Misc. Issues: Normal [facility] Prescriptions/Work Noteson 0 03-13-2024 Prescriptions/Work Notes [id number]#1.00TIFF Normal [facility] RAD - Preliminary Cat Scan R eporton 03-13-2024 RAD - Preliminary Cat Scan Report [id number]#1.00TIFF Normal [facility] SEROLOGYOrdered By: Virginia Mccain on 03-13-2024 Beta HCG ( test) Ql Negative (03/13/24 6:53 PM) Normal [facility] Man Sero Troponinon 03-13-2024 Troponin 6.10 pg/mL Low 10.10-27.1 0 [facility] Comment on above: Result Comment: The 95% CI (Confidence Interval) PPV (Positive Predictive Value) for myocardial infarction in females is 38 pg/mL, in males 51 pg/mL. The results should be used in conjunction with clinical conditions of myocardial infarction. (Access High Sensitivity Troponin I Instructions For Use, Sugar [place], June 2018) Performed By: #### 2 1273210, 9846610, 3830901, 4973497, 7196693, 02843331, 08718335, 3198372, 1663826 ####[facility] [address] [place] [address] eGFRon 03-13-2024 eGFR 94 mL/min/1.73 m2 Normal >=59 [facility] Comment on above: Order Comment: qns t o run. phlebotomists notified of recollect by message. [id number] 03/13/2024 18:28:21 EDTOrder added by Discern Expert. Performed By: #### 2 3939679, 2162998, 2632410, 4479991, 6403489, 55056652, 70362544, 5867231, 3965247 ####[facility] [address] [place] [address] Amphetamine Screen Ql (U)Ord ered By: Familia Christian on 05-25-2023 Amphetamines Ql (U) Negative Negative [facility] Barbiturates [Presence] in U rine by Screen methodOrdered By: Familia Christian on 05-25-2023 Barbiturates Screen Ql (U) Negative Negative [facility] Benzodiazepines Screen Ql (U )Ordered By: Familia Christian on 05-25-2023 Benzodiazepines Ql (U) Negative Negative [facility] Benzoylecgonine [Presence] i n Urine by Screen methodOrdered By: Familia Christian on 05-25-2023 Benzoylecgonine Screen Ql (U) Negative Negative [facility] Cannabinoids [Presence] in U rine by Screen methodOrdered By: Familia Christian on 05-25-2023 Cannabinoids Screen Ql (U) Positive Negative [facility] Comment on above: These are unconfirme d results and should not be used for legal purposes. Drug Cut-Off Concentration: AMPH 1000 ng/mL NIKOLAS 200 ng/mL SHRAVAN 200 ng/mL COCM 300 ng/mL OP 300 ng/mL PCP 25 ng/mL THC 20 ng/mL HCG ( test) IA.rapi d Ql (U)Ordered By: Familia Christian on 05-25-2023 HCG ( test) Ql (U) Negative [facility] Opiates [Presence] in Urine by Screen methodOrdered By: Familia Christian on 05-25-2023 Opiates Screen Ql (U) Negative Negative [facility] Phencyclidine Screen Ql (U)O rdered By: Familia Christian on 05-25-2023 Phencyclidine Ql (U) Negative Negative [facility] [facility] COVID-[facility] Detected/Not Detect edOrdered By: Modesta Chand on 03-15-2023 SARS-CoV-2 (COVID-19) RNA JANAK+non-probe Ql (Nph) Not detected Not Detecte [facility] Comment on above: This is a duplicate RP2.1 COVID (PCR) result to be used for statistical tracking purpose only. Respiratory pathogens DNA an d RNA panel - Nasopharynx by JANAK with non-probe detectionOrdered By: Modesta Chand on 03-15-2023 Respiratory pathogens DNA and RNA panel JANAK+non-probe (Nph) [facility] Basophils Auto (Bld) [#/Vol] Ordered By: Anette Stout on 01-07-2023 Basophils (Bld) [#/Vol] 0.0 10*3/uL 0.0-0.1 [facility] Basophils/100 WBC Auto (Bld) Ordered By: Anette Stout on 01-07-2023 Basophils/100 WBC (Bld) 0.4 % . [facility] Eosinophils Auto (Bld) [#/Vo l]Ordered By: Anette Stout on 01-07-2023 Eosinophils (Bld) [#/Vol] 0.7 10*3/uL 0.0-0.7 [facility] Eosinophils/100 WBC Auto (Bl d)Ordered By: Anette Stout on 01-07-2023 Eosinophils/100 WBC (Bld) 5.5 % . [facility] Erythrocyte distribution wid th Auto (RBC) [Ratio]Ordered By: Anette Stout on 01-07-2023 Erythrocyte distribution width (RBC) [Ratio] 13.5 % 11.9-15.3 [facility] Estimated glomerular filtrat ion rate (GFR) non- AmericanOrdered By: Anette Stout on 01-07-2023 GFR/1.73 sq M.predicted among non-blacks MDRD (S/P/Bld) [Vol rate/Area] > 60 mL/Min [facility] Hematocrit Auto (Bld) [Volum e fraction]Ordered By: Anette Stout on 01-07-2023 Hematocrit (Bld) [Volume fraction] 41.5 % 36.0-46.0 [facility] Hemoglobin [Mass/volume] in BloodOrdered By: Anette Stout on 01-07-2023 Hemoglobin (Bld) [Mass/Vol] 14.0 g/dL 12.0-16.0 [facility] Leukocytes [#/volume] correc venkata for nucleated erythrocytes in Blood by Automated counOrdered By: Anette Stout on 01-07-2023 WBC corrected for nucl RBC Auto (Bld) [#/Vol] 12.1 10*3/uL 4.5-13.5 [facility] Lymphocytes Auto (Bld) [#/Vo l]Ordered By: Anette Stout on 01-07-2023 Lymphocytes (Bld) [#/Vol] 2.5 10*3/uL 1.20-4.8 [facility] Lymphocytes/100 WBC Auto (Bl d)Ordered By: Anette Stout on 01-07-2023 Lymphocytes/100 WBC (Bld) 20.9 % . [facility] MCH Auto (RBC) [Entitic mass ]Ordered By: Anette Stout on 01-07-2023 MCH (RBC) [Entitic mass] 28.8 pg 25.0-35.0 [facility] MCHC Auto (RBC) [Mass/Vol]Or dered By: Anette Stout on 01-07-2023 MCHC (RBC) [Mass/Vol] 33.7 g/dL 31.0-37.0 [facility] MCV Auto (RBC) [Entitic vol] Ordered By: Anette Stout on 01-07-2023 MCV (RBC) [Entitic vol] 85.5 fL 78-102 [facility] Monocytes Auto (Bld) [#/Vol] Ordered By: Anette Stout on 01-07-2023 Monocytes (Bld) [#/Vol] 0.9 10*3/uL 0.1-1.00 [facility] Monocytes/100 WBC Auto (Bld) Ordered By: Anette Stout on 01-07-2023 Monocytes/100 WBC (Bld) 7.5 % . [facility] Neutrophils Auto (Bld) [#/Vo l]Ordered By: Anette Stout on 01-07-2023 Neutrophils (Bld) [#/Vol] 8.0 10*3/uL 1.2-7.7 [facility] Neutrophils/100 WBC Auto (Bl d)Ordered By: Anette Stout on 01-07-2023 Neutrophils/100 WBC (Bld) 65.7 % . [facility] No Panel InformationOrdered By: Anette Stout on 01-07-2023 > 60 mL/Min [facility] 113.92 [facility] Nucleated erythrocytes [Pres ence] in Blood by Automated countOrdered By: Anette Stout on 01-07-2023 Nucleated RBC Auto Ql (Bld) 0.1 /100{WBC} 0-0.5 [facility] Platelet mean volume Auto (B ld) [Entitic vol]Ordered By: Anette Stout on 01-07-2023 Platelet mean volume (Bld) [Entitic vol] 8.6 fL 6.3-10.7 [facility] Platelets Auto (Bld) [#/Vol] Ordered By: Anette Stout on 01-07-2023 Platelets (Bld) [#/Vol] 222 10*3/uL 150-450 [facility] RBC Auto (Bld) [#/Vol]Ordere d By: Anette Stout on 01-07-2023 RBC (Bld) [#/Vol] 4.85 10*6/uL 4.10-5.10 [facility] Serum or plasma anion gap de terminationOrdered By: Anette Stout on 01-07-2023 Anion gap [Moles/Vol] N/A [facility] Serum or plasma calcium tammy urement (mass/volume)Ordered By: Anette Stout on 01-07-2023 Calcium [Mass/Vol] 8.5 mg/dL 8.2-10.2 [facility] Serum or plasma chloride judy surement (moles/volume)Ordered By: Anette Stout on 01-07-2023 Chloride [Moles/Vol] 103 mmol/L 95-114 [facility] Serum or plasma creatinine m easurement with calculation of estimated glomerular filtrOrdered By: Anette Stout on 01-07-2023 Creatinine and Glomerular filtration rate.predicted panel (S/P/Bld) 0.77 mg/dL 0.44-1.03 [facility] Serum or plasma glucose tammy urement (mass/volume)Ordered By: Anette Stout on 01-07-2023 Glucose [Mass/Vol] 90 mg/dL 70-100 [facility] Serum or plasma potassium me asurement (moles/volume)Ordered By: Eliana Bautista on 01-07-2023 Potassium [Moles/Vol] 3.2 mmol/L 3.5-5.1 [facility] Serum or plasma sodium measu rement (moles/volume)Ordered By: Anette Stout on 01-07-2023 Sodium [Moles/Vol] 134 mmol/L 136-146 [facility] Serum or plasma total carbon dioxide measurement (moles/volume)Ordered By: Anette Stout on 01-07-2023 CO2 [Moles/Vol] 23.4 mmol/L 22.0-30.0 [facility] Serum or plasma urea nitroge n measurement (mass/volume)Ordered By: Anette Stout on 01-07-2023 Urea nitrogen [Mass/Vol] 8 mg/dL 9-23 [facility] WBC Auto (Bld) [#/Vol]Ordere d By: Anette Stout on 01-07-2023 WBC (Bld) [#/Vol] 12.1 10*3/uL 4.5-13.5 [facility] Amphetamine Screen Ql (U)Ord ered By: Anette Stout on 01-06-2023 Amphetamines Ql (U) Negative Negative [facility] Automated erythrocytes count in urine sediment (number/area)Ordered By: Rd Brown on 01-06-2023 RBC Auto (Urine sed) [#/Area] None seen [HPF] 0-4 [facility] Automated leukocytes count i n urine sediment (number/area)Ordered By: Rd Brown on 01-06-2023 WBC Auto (Urine sed) [#/Area] 20-49 [HPF] 0-4 [facility] Automated urine hyaline cast s count (number/volume)Ordered By: Rd Brown on 01-06-2023 Hyaline casts Auto (U) [#/Vol] None seen [LPF] 0-1 [facility] Barbiturates [Presence] in U rineOrdered By: Anette Stout on 01-06-2023 Barbiturates Ql (U) Negative Negative [facility] Basophils Auto (Bld) [#/Vol] Ordered By: Rd Brown on 01-06-2023 Basophils (Bld) [#/Vol] 0.0 10*3/uL 0.0-0.1 [facility] Basophils/100 WBC Auto (Bld) Ordered By: Rd Brown on 01-06-2023 Basophils/100 WBC (Bld) 0.3 % . [facility] Benzodiazepines [Presence] i n UrineOrdered By: Anette Stout on 01-06-2023 Benzodiazepines Ql (U) Negative Negative [facility] Bilirubin Test strip Ql (U)O rdered By: Rd Brown on 01-06-2023 Bilirubin Ql (U) Negative Negative [facility] Body fluid albumin measureme nt (mass/volume)Ordered By: Rd Brown on 01-06-2023 Albumin (Body fld) [Mass/Vol] 4.9 g/dL 3.2-5.5 [facility] Cannabinoids [Presence] in U rine by Screen methodOrdered By: Anette Stout on 01-06-2023 Cannabinoids Screen Ql (U) Positive Negative [facility] Casts typing in urine sedime nt by light microscopyOrdered By: Rd Brown on 01-06-2023 Casts LM Nom (Urine sed) None seen [LPF] None Seen [facility] Color Auto (U)Ordered By: Andrew Brown on 01-06-2023 Color (U) Yellow Yellow [facility] Eosinophils Auto (Bld) [#/Vo l]Ordered By: Rd Brown on 01-06-2023 Eosinophils (Bld) [#/Vol] 0.4 10*3/uL 0.0-0.7 [facility] Eosinophils/100 WBC Auto (Bl d)Ordered By: Rd Brown on 01-06-2023 Eosinophils/100 WBC (Bld) 2.3 % . [facility] Erythrocyte distribution wid th Auto (RBC) [Ratio]Ordered By: Rd Brown on 01-06-2023 Erythrocyte distribution width (RBC) [Ratio] 13.5 % 11.9-15.3 [facility] Estimated glomerular filtrat ion rate (GFR) non- AmericanOrdered By: Rd Brown on 01-06-2023 GFR/1.73 sq M.predicted among non-blacks MDRD (S/P/Bld) [Vol rate/Area] > 60 mL/Min [facility] Globulin Calc (S) [Mass/Vol] Ordered By: Rd Brown on 01-06-2023 Globulin (S) [Mass/Vol] 2.9 g/dL [facility] HCG ( test) IA.rapi d Ql (U)Ordered By: Rd Brown on 01-06-2023 HCG ( test) Ql (U) Negative [facility] Hematocrit Auto (Bld) [Volum e fraction]Ordered By: Rd Brown on 01-06-2023 Hematocrit (Bld) [Volume fraction] 48.3 % 36.0-46.0 [facility] Hemoglobin [Mass/volume] in BloodOrdered By: Rd Brown on 01-06-2023 Hemoglobin (Bld) [Mass/Vol] 16.2 g/dL 12.0-16.0 [facility] Ketones Auto test strip (U) [Mass/Vol]Ordered By: Rd Brown on 01-06-2023 Ketones (U) [Mass/Vol] 4+ Negative [facility] Leukocytes [#/volume] correc venkata for nucleated erythrocytes in Blood by Automated counOrdered By: Rd Brown on 01-06-2023 WBC corrected for nucl RBC Auto (Bld) [#/Vol] 17.7 10*3/uL 4.5-13.5 [facility] Lymphocytes Auto (Bld) [#/Vo l]Ordered By: Rd Brown on 01-06-2023 Lymphocytes (Bld) [#/Vol] 3.5 10*3/uL 1.20-4.8 [facility] Lymphocytes/100 WBC Auto (Bl d)Ordered By: Rd Brown on 01-06-2023 Lymphocytes/100 WBC (Bld) 19.9 % . [facility] MCH Auto (RBC) [Entitic mass ]Ordered By: Rd Brown on 01-06-2023 MCH (RBC) [Entitic mass] 28.7 pg 25.0-35.0 [facility] MCHC Auto (RBC) [Mass/Vol]Or dered By: Rd Brown on 01-06-2023 MCHC (RBC) [Mass/Vol] 33.6 g/dL 31.0-37.0 [facility] MCV Auto (RBC) [Entitic vol] Ordered By: Rd Brown on 01-06-2023 MCV (RBC) [Entitic vol] 85.4 fL 78-102 [facility] Monocyte distribution width [Entitic volume] in Blood by AutomatedOrdered By: Rd Brown on 01-06-2023 Monocyte distribution width Auto (Bld) [Entitic vol] 15.43 % 0.00-20.00 [facility] Monocytes Auto (Bld) [#/Vol] Ordered By: Rd Brown on 01-06-2023 Monocytes (Bld) [#/Vol] 1.3 10*3/uL 0.1-1.00 [facility] Monocytes/100 WBC Auto (Bld) Ordered By: Rd Brown on 01-06-2023 Monocytes/100 WBC (Bld) 7.4 % . [facility] Neutrophils Auto (Bld) [#/Vo l]Ordered By: Rd Brown on 01-06-2023 Neutrophils (Bld) [#/Vol] 12.4 10*3/uL 1.2-7.7 [facility] Neutrophils/100 WBC Auto (Bl d)Ordered By: Rd Brown on 01-06-2023 Neutrophils/100 WBC (Bld) 70.1 % . [facility] Nitrite Test strip Ql (U)Ord ered By: Rd Brown on 01-06-2023 Nitrite Ql (U) Negative Negative [facility] No Panel InformationOrdered By: Anette Stout on 01-06-2023 Negative Negative [facility] No Panel InformationOrdered By: Rd Brown on 01-06-2023 > 60 mL/Min [facility] 31.0 U/L 22-51 [facility] 102.00 [facility] Nucleated erythrocytes [Pres ence] in Blood by Automated countOrdered By: Rd Brown on 01-06-2023 Nucleated RBC Auto Ql (Bld) 0.1 /100{WBC} 0-0.5 [facility] Phencyclidine Screen Ql (U)O rdered By: Anette Stout on 01-06-2023 Phencyclidine Ql (U) Negative Negative [facility] Platelet mean volume Auto (B ld) [Entitic vol]Ordered By: Rd Brown on 01-06-2023 Platelet mean volume (Bld) [Entitic vol] 8.5 fL 6.3-10.7 [facility] Platelets Auto (Bld) [#/Vol] Ordered By: Rd Brown on 01-06-2023 Platelets (Bld) [#/Vol] 296 10*3/uL 150-450 [facility] Protein Auto test strip (U) [Mass/Vol]Ordered By: Rd Brown on 01-06-2023 Protein (U) [Mass/Vol] 100 mg/dL Negative Fi [facility] Protein [Mass/volume] in Ser um or PlasmaOrdered By: Rd Brown on 01-06-2023 Protein [Mass/Vol] 7.8 g/dL 6.1-7.9 [facility] RBC Auto (Bld) [#/Vol]Ordere d By: Rd Brown on 01-06-2023 RBC (Bld) [#/Vol] 5.65 10*6/uL 4.10-5.10 [facility] Serum or plasma alanine florez otransferase measurement without P-5'-P (enzymatic activiOrdered By: Rd Brown on 01-06-2023 ALT No additional P-5'-P [Catalytic activity/Vol] 20 U/L 10-60 [facility] Serum or plasma albumin/glob ulin mass ratioOrdered By: Rd Brown on 01-06-2023 Albumin/Globulin [Mass ratio] 1.7 {ratio} [facility] Serum or plasma alkaline justin sphatase measurement (enzymatic activity/volume)Ordered By: Rd Brown on 01-06-2023 ALP [Catalytic activity/Vol] 66 U/L 32-92 [facility] Serum or plasma anion gap de terminationOrdered By: Rd Brown on 01-06-2023 Anion gap [Moles/Vol] 19.4 mmol/L 6.0-15.0 [facility] Serum or plasma aspartate am inotransferase measurement (enzymatic activity/volume)Ordered By: Rd Brown on 01-06-2023 AST [Catalytic activity/Vol] 20 U/L 10-42 [facility] Serum or plasma calcium tammy urement (mass/volume)Ordered By: Rd Brown on 01-06-2023 Calcium [Mass/Vol] 9.8 mg/dL 8.2-10.2 [facility] Serum or plasma chloride judy surement (moles/volume)Ordered By: Rd Brown on 01-06-2023 Chloride [Moles/Vol] 91 mmol/L 95-114 [facility] Serum or plasma creatinine m easurement with calculation of estimated glomerular filtrOrdered By: Rd Brown on 01-06-2023 Creatinine and Glomerular filtration rate.predicted panel (S/P/Bld) 0.86 mg/dL 0.44-1.03 [facility] Serum or plasma glucose tammy urement (mass/volume)Ordered By: Rd Brown on 01-06-2023 Glucose [Mass/Vol] 80 mg/dL 70-100 [facility] Serum or plasma potassium me asurement (moles/volume)Ordered By: Rd Brown on 01-06-2023 Potassium [Moles/Vol] 2.7 mmol/L 3.5-5.1 [facility] Serum or plasma sodium measu rement (moles/volume)Ordered By: Rd Brown on 01-06-2023 Sodium [Moles/Vol] 132 mmol/L 136-146 [facility] Serum or plasma total biliru bin measurement (mass/volume)Ordered By: Rd Brown on 01-06-2023 Bilirubin [Mass/Vol] 1.5 mg/dL 0.3-1.2 [facility] Serum or plasma total carbon dioxide measurement (moles/volume)Ordered By: Rd Brown on 01-06-2023 CO2 [Moles/Vol] 24.3 mmol/L 22.0-30.0 [facility] Serum or plasma urea nitroge n measurement (mass/volume)Ordered By: Rd Brown on 01-06-2023 Urea nitrogen [Mass/Vol] 19 mg/dL 9-23 [facility] Specific gravity Auto test s trip (U) [Rel density]Ordered By: Rd Brown on 01-06-2023 Specific gravity (U) [Rel density] 1.027 1.001-1.03 0 [facility] Squamous epithelial cells de tection in urine sediment by light microscopyOrdered By: Rd Brown on 01-06-2023 Epithelial cells.squamous LM Ql (Urine sed) 10-19 [HPF] 0-2 [facility] Troponin I.cardiac [Mass/vol ume] in Serum or Plasma by High sensitivity methodOrdered By: Federico Randolph on 01-06-2023 Troponin I.cardiac High sensitivity method [Mass/Vol] 6 pg/mL 0-15 [facility] Urine bacteria detection by automated methodOrdered By: Rd Brown on 01-06-2023 Bacteria Auto Ql (U) 1+ None Seen [facility] Urine clarity by refractomet ry automatedOrdered By: Rd Brown on 01-06-2023 Clarity Refractometry automated (U) Cloudy Clear [facility] Urine cocaine detectionOrder ed By: Anette Stout on 01-06-2023 Cocaine Ql (U) Negative Negative [facility] Urine glucose measurement by automated test strip (mass/volume)Ordered By: Rd Brown on 01-06-2023 Glucose Auto test strip (U) [Mass/Vol] Normal mg/dL Normal [facility] Urine hemoglobin detection b y automated test stripOrdered By: Rd Brown on 01-06-2023 Hemoglobin Auto test strip Ql (U) 3+ Negative [facility] Urine lactic acid measuremen tOrdered By: Rd Brown on 01-06-2023 Lactate (U) [Moles/Vol] 1.6 mmol/L 0.5-2.2 [facility] Urine leukocyte esterase det ection by automated test stripOrdered By: Rd Brown on 01-06-2023 Leukocyte esterase Auto test strip Ql (U) 2+ Negative [facility] Urobilinogen Auto test strip (U) [Mass/Vol]Ordered By: Rd Brown on 01-06-2023 Urobilinogen (U) [Mass/Vol] Normal mg/dL Normal [facility] WBC Auto (Bld) [#/Vol]Ordere d By: Rd Brown on 01-06-2023 WBC (Bld) [#/Vol] 17.7 10*3/uL 4.5-13.5 [facility] pH Auto test strip (U)Ordere d By: Rd Brown on 01-06-2023 pH (U) 6.5 [pH] 5.0-9.0 [facility] Albumin [Mass/volume] in Ser um or PlasmaOrdered By: Ravi Arguello on 01-02-2023 Albumin [Mass/Vol] 5.0 g/dL 3.2-5.5 [facility] Automated erythrocytes count in urine sediment (number/area)Ordered By: Ravi Arguello on 01-02-2023 RBC Auto (Urine sed) [#/Area] 3-4 [HPF] 0-4 [facility] Automated leukocytes count i n urine sediment (number/area)Ordered By: Ravi Arguello on 01-02-2023 WBC Auto (Urine sed) [#/Area] 50-100 [HPF] 0-4 [facility] Automated urine hyaline cast s count (number/volume)Ordered By: Ravi Arguello on 01-02-2023 Hyaline casts Auto (U) [#/Vol] None seen [LPF] 0-1 [facility] Basophils Auto (Bld) [#/Vol] Ordered By: Ravi Arguello on 01-02-2023 Basophils (Bld) [#/Vol] 0.1 10*3/uL 0.0-0.1 [facility] Basophils/100 WBC Auto (Bld) Ordered By: Ravi Arguello on 01-02-2023 Basophils/100 WBC (Bld) 0.5 % . [facility] Bilirubin Test strip Ql (U)O rdered By: Ravi Arguello on 01-02-2023 Bilirubin Ql (U) Negative Negative [facility] Casts typing in urine sedime nt by light microscopyOrdered By: Ravi Arguello on 01-02-2023 Casts LM Nom (Urine sed) None seen [LPF] None Seen [facility] Color Auto (U)Ordered By: Gisselle Arguello on 01-02-2023 Color (U) Yellow Yellow [facility] Eosinophils Auto (Bld) [#/Vo l]Ordered By: Ravi Arguello on 01-02-2023 Eosinophils (Bld) [#/Vol] 0.0 10*3/uL 0.0-0.7 [facility] Eosinophils/100 WBC Auto (Bl d)Ordered By: Ravi Arguello on 01-02-2023 Eosinophils/100 WBC (Bld) 0.0 % . [facility] Erythrocyte distribution wid th Auto (RBC) [Ratio]Ordered By: Ravi Arguello on 01-02-2023 Erythrocyte distribution width (RBC) [Ratio] 13.9 % 11.9-15.3 [facility] Estimated glomerular filtrat ion rate (GFR) non- AmericanOrdered By: Ravi Arguello on 01-02-2023 GFR/1.73 sq M.predicted among non-blacks MDRD (S/P/Bld) [Vol rate/Area] > 60 mL/Min [facility] Globulin Calc (S) [Mass/Vol] Ordered By: Ravi Arguello on 01-02-2023 Globulin (S) [Mass/Vol] 2.9 g/dL [facility] HCG ( test) IA.rapi d Ql (U)Ordered By: Ravi Arguello on 01-02-2023 HCG ( test) Ql (U) Negative [facility] Hematocrit Auto (Bld) [Volum e fraction]Ordered By: Ravi Arguello on 01-02-2023 Hematocrit (Bld) [Volume fraction] 42.1 % 36.0-46.0 [facility] Hemoglobin [Mass/volume] in BloodOrdered By: Ravi Arguello on 01-02-2023 Hemoglobin (Bld) [Mass/Vol] 14.0 g/dL 12.0-16.0 [facility] Ketones Auto test strip (U) [Mass/Vol]Ordered By: Ravi Arguello on 01-02-2023 Ketones (U) [Mass/Vol] 3+ Negative Fi [facility] Leukocytes [#/volume] correc venkata for nucleated erythrocytes in Blood by Automated counOrdered By: Ravi Arguello on 01-02-2023 WBC corrected for nucl RBC Auto (Bld) [#/Vol] 14.1 10*3/uL 4.5-13.5 [facility] Lymphocytes Auto (Bld) [#/Vo l]Ordered By: Ravi Arguello on 01-02-2023 Lymphocytes (Bld) [#/Vol] 1.4 10*3/uL 1.20-4.8 [facility] Lymphocytes/100 WBC Auto (Bl d)Ordered By: Ravi Arguello on 01-02-2023 Lymphocytes/100 WBC (Bld) 10.1 % . [facility] MCH Auto (RBC) [Entitic mass ]Ordered By: Ravi Arguello on 01-02-2023 MCH (RBC) [Entitic mass] 28.6 pg 25.0-35.0 [facility] MCHC Auto (RBC) [Mass/Vol]Or dered By: Ravi Arguello on 01-02-2023 MCHC (RBC) [Mass/Vol] 33.2 g/dL 31.0-37.0 [facility] MCV Auto (RBC) [Entitic vol] Ordered By: Ravi Arguello on 01-02-2023 MCV (RBC) [Entitic vol] 86.2 fL 78-102 [facility] Monocyte distribution width [Entitic volume] in Blood by AutomatedOrdered By: Ravi Arguello on 01-02-2023 Monocyte distribution width Auto (Bld) [Entitic vol] 16.52 % 0.00-20.00 [facility] Monocytes Auto (Bld) [#/Vol] Ordered By: Ravi Arguello on 01-02-2023 Monocytes (Bld) [#/Vol] 1.0 10*3/uL 0.1-1.00 [facility] Monocytes/100 WBC Auto (Bld) Ordered By: Ravi Arguello on 01-02-2023 Monocytes/100 WBC (Bld) 7.0 % . [facility] Neutrophils Auto (Bld) [#/Vo l]Ordered By: Ravi Arguello on 01-02-2023 Neutrophils (Bld) [#/Vol] 11.6 10*3/uL 1.2-7.7 [facility] Neutrophils/100 WBC Auto (Bl d)Ordered By: Ravi Arguello on 01-02-2023 Neutrophils/100 WBC (Bld) 82.4 % . [facility] Nitrite Test strip Ql (U)Ord ered By: Ravi Arguello on 01-02-2023 Nitrite Ql (U) Negative Negative [facility] No Panel InformationOrdered By: Ravi Arguello on 01-02-2023 > 60 mL/Min [facility] 29.0 U/L 22-51 [facility] 86.85 [facility] Nucleated erythrocytes [Pres ence] in Blood by Automated countOrdered By: Ravi Arguello on 01-02-2023 Nucleated RBC Auto Ql (Bld) 0.0 /100{WBC} 0-0.5 [facility] Platelet mean volume Auto (B ld) [Entitic vol]Ordered By: Ravi Arguello on 01-02-2023 Platelet mean volume (Bld) [Entitic vol] 8.4 fL 6.3-10.7 [facility] Platelets Auto (Bld) [#/Vol] Ordered By: Ravi Arguello on 01-02-2023 Platelets (Bld) [#/Vol] 299 10*3/uL 150-450 [facility] Protein Auto test strip (U) [Mass/Vol]Ordered By: Ravi Arguello on 01-02-2023 Protein (U) [Mass/Vol] 100 mg/dL Negative [facility] Protein [Mass/volume] in Ser um or PlasmaOrdered By: Ravi Arguello on 01-02-2023 Protein [Mass/Vol] 7.9 g/dL 6.1-7.9 [facility] RBC Auto (Bld) [#/Vol]Ordere d By: Ravi Arguello on 01-02-2023 RBC (Bld) [#/Vol] 4.89 10*6/uL 4.10-5.10 [facility] Serum or plasma alanine florez otransferase measurement without P-5'-P (enzymatic activiOrdered By: Ravi Arguello on 01-02-2023 ALT No additional P-5'-P [Catalytic activity/Vol] 26 U/L 10-60 [facility] Serum or plasma albumin/glob ulin mass ratioOrdered By: Ravi Arguello on 01-02-2023 Albumin/Globulin [Mass ratio] 1.7 {ratio} [facility] Serum or plasma alkaline justin sphatase measurement (enzymatic activity/volume)Ordered By: Ravi Arguello on 01-02-2023 ALP [Catalytic activity/Vol] 60 U/L 32-92 [facility] Serum or plasma anion gap de terminationOrdered By: Ravi Arguello on 01-02-2023 Anion gap [Moles/Vol] 16.4 mmol/L 6.0-15.0 [facility] Serum or plasma aspartate am inotransferase measurement (enzymatic activity/volume)Ordered By: Ravi Arguello on 01-02-2023 AST [Catalytic activity/Vol] 32 U/L 10-42 [facility] Serum or plasma calcium tammy urement (mass/volume)Ordered By: Ravi Arguello on 01-02-2023 Calcium [Mass/Vol] 9.8 mg/dL 8.2-10.2 [facility] Serum or plasma chloride judy surement (moles/volume)Ordered By: Ravi Arguello on 01-02-2023 Chloride [Moles/Vol] 106 mmol/L 95-114 [facility] Serum or plasma creatinine m easurement with calculation of estimated glomerular filtrOrdered By: Ravi Arguello on 01-02-2023 Creatinine and Glomerular filtration rate.predicted panel (S/P/Bld) 1.01 mg/dL 0.44-1.03 [facility] Serum or plasma glucose tammy urement (mass/volume)Ordered By: Ravi Arguello on 01-02-2023 Glucose [Mass/Vol] 123 mg/dL 70-100 [facility] Serum or plasma potassium me asurement (moles/volume)Ordered By: Ravi Arguello on 01-02-2023 Potassium [Moles/Vol] 3.2 mmol/L 3.5-5.1 [facility] Serum or plasma sodium measu rement (moles/volume)Ordered By: Ravi Arguello on 01-02-2023 Sodium [Moles/Vol] 142 mmol/L 136-146 [facility] Serum or plasma total biliru bin measurement (mass/volume)Ordered By: Ravi Arguello on 01-02-2023 Bilirubin [Mass/Vol] 0.8 mg/dL 0.3-1.2 [facility] Serum or plasma total carbon dioxide measurement (moles/volume)Ordered By: Ravi Arguello on 01-02-2023 CO2 [Moles/Vol] 22.8 mmol/L 22.0-30.0 [facility] Serum or plasma urea nitroge n measurement (mass/volume)Ordered By: Ravi Arguello on 01-02-2023 Urea nitrogen [Mass/Vol] 22 mg/dL 9-23 [facility] Specific gravity Auto test s trip (U) [Rel density]Ordered By: Ravi Arguello on 01-02-2023 Specific gravity (U) [Rel density] 1.036 1.001-1.03 0 [facility] Squamous epithelial cells de tection in urine sediment by light microscopyOrdered By: Ravi Arguello on 01-02-2023 Epithelial cells.squamous LM Ql (Urine sed) Innumerable [HPF] 0-2 [facility] Urine bacteria detection by automated methodOrdered By: Ravi Arguello on 01-02-2023 Bacteria Auto Ql (U) 3+ None Seen [facility] Urine clarity by refractomet ry automatedOrdered By: Ravi Arguello on 01-02-2023 Clarity Refractometry automated (U) Turbid Clear [facility] Urine culture routineOrdered By: Ravi Arguello on 01-02-2023 Bacteria identified Cx Nom (U) [facility] Urine glucose measurement by automated test strip (mass/volume)Ordered By: Ravi Arguello on 01-02-2023 Glucose Auto test strip (U) [Mass/Vol] Normal mg/dL Normal [facility] Urine hemoglobin detection b y automated test stripOrdered By: Ravi Arguello on 01-02-2023 Hemoglobin Auto test strip Ql (U) Negative Negative [facility] Urine leukocyte esterase det ection by automated test stripOrdered By: Ravi Topetegisselle on 01-02-2023 Leukocyte esterase Auto test strip Ql (U) 3+ Negative [facility] Urobilinogen Auto test strip (U) [Mass/Vol]Ordered By: Ravi Topetegisselle on 01-02-2023 Urobilinogen (U) [Mass/Vol] Normal mg/dL Normal [facility] WBC Auto (Bld) [#/Vol]Ordere d By: Ravi Topetegisselle on 01-02-2023 WBC (Bld) [#/Vol] 14.1 10*3/uL 4.5-13.5 [facility] pH Auto test strip (U)Ordere d By: Ravi Saundra on 01-02-2023 pH (U) 6.0 [pH] 5.0-9.0 [facility] CULTURE URINEon 01-01-2023 CULTURE URINE Culture Observations : LIGHT GROWTH OF MIXED GENITAL JORI. NO POTENTIAL PATHOGENS SEEN. Normal [facility] Comment on above: Performed By: #### U RCX #### [facility] [address] [address] [address] Dacia Ackerman Covid-19 PCR ([facility])on SARS-CoV-2 (COVID-19) RNA JANAK+probe Ql (Unsp spec) Not detected Normal NOT DETECTED [facility] Comment on above: Result Comment: When [...] for this test is supported by the Director Of [employer] of Health and Human Service's declaration that [...] used). Performed By: #### C VDTBH #### [facility] [address] [place] [address] Dr. Dacia Ackerman DRUG SCREEN RAPID (URINE)on 01-01-2023 AMP Negative Normal NEGATIVE [facility] Comment on above: Performed By: #### D RUGRPD #### [facility] [address] [place] [address] Dr. Dacia Ackerman BAR Negative Normal NEGATIVE [facility] Comment on above: Performed By: #### D RUGRPD #### [facility] [address] [place] [address] Dr. Dacia Ackerman BUP Negative Normal NEGATIVE [facility] Comment on above: Performed By: #### D RUGRPD #### [facility] [address] [place] [address] Dr. Dacia Ackerman BZO Negative Normal NEGATIVE [facility] Comment on above: Performed By: #### D RUGRPD #### [facility] [address] [place] [address] Dr. Dacia Ackerman MELINA Negative Normal NEGATIVE [facility] Comment on above: Performed By: #### D RUGRPD #### [facility] [address] [place] [address] Dr. Dacia Ackerman CUT-OFFS SEE BELOW Normal [facility] Comment on above: Result Comment: AMP [...] ng/mL Performed By: #### D RUGRPD #### [facility] [address] [place] [address] Dr. Dacia Ackerman DRUG CUT HEADER DRUG CLASS TEST SYST EM CUT-OFF CONCENTRATIONS ARE FOLLOWS: Normal [facility] Comment on above: Performed By: #### D RUGRPD #### [facility] [address] [place] [address] Dr. Dacia Ackerman mAMP Negative Normal NEGATIVE [facility] Comment on above: Performed By: #### D RUGRPD #### [facility] [address] [place] [address] Dr. Dacia Ackerman MTD Negative Normal NEGATIVE [facility] Comment on above: Performed By: #### D RUGRPD #### [facility] [address] [place] [address] Dr. Dacia Ackerman OPI Negative Normal NEGATIVE [facility] Comment on above: Performed By: #### D RUGRPD #### [facility] [address] [place] [address] Dr. Dacia Ackerman OXY Negative Normal NEGATIVE [facility] Comment on above: Performed By: #### D RUGRPD #### [facility] [address] [address] [address] Dacia Ackerman PCP Negative Normal NEGATIVE [facility] Comment on above: Performed By: #### D RUGRPD #### [facility] [address] [place] [address] Dr. Dacia Ackerman PPX Negative Normal NEGATIVE [facility] Comment on above: Performed By: #### D RUGRPD #### [facility] [address] [place] [address] Dr. Dacia Ackerman TCA Negative Normal NEGATIVE [facility] Comment on above: Performed By: #### D RUGRPD #### [facility] [address] [place] [address] Dr. Dacia Ackerman THC Positive Abnormal NEGATIVE [facility] Comment on above: Performed By: #### D RUGRPD #### [facility] [address] [place] [address] Dr. Dacia Ackerman ER URINE PROFILEon 02-04-202 3 Bilirubin Ql (U) SMALL Abnormal NEGATIVE [facility] Comment on above: Performed By: #### P REGU, ERUR, UMICRO #### [facility] [address] [place] [address] Dr. Dacia Ackerman Clarity (U) CLEAR Normal CLEAR [facility] Comment on above: Performed By: #### P REGU, ERUR, UMICRO #### [facility] [address] [address] [address] Dacia Ackerman Color (U) YELLOW Normal YELLOW [facility] Comment on above: Performed By: #### P REGU, ERUR, UMICRO #### [facility] [address] [address] [address] Dacia OLIVAS A micrscopic examina tion will be performed if indicated. Normal [facility] Comment on above: Performed By: #### P REGU, ERUR, UMICRO #### [facility] [address] [place] [address] Dr. Dacia Ackerman Glucose Ql (U) Negative Normal NEGATIVE [facility] Comment on above: Performed By: #### P REGU, ERUR, UMICRO #### [facility] [address] [place] [address] Dr. Dacia Ackerman Hemoglobin Ql (U) Negative Normal NEGATIVE [facility] Comment on above: Performed By: #### P REGU, ERUR, UMICRO #### [facility] [address] [address] [address] Dacia Ackerman Ketones Ql (U) >=80 Abnormal NEGATIVE [facility] Comment on above: Performed By: #### P REGU, ERUR, UMICRO #### [facility] [address] [address] [address] Dacia Ackerman LEUKOCYTES TRACE Abnormal NEGATIVE [facility] Comment on above: Performed By: #### P REGU, ERUR, UMICRO #### [facility] [address] [place] [address] Dr. Dacia Ackerman Nitrite Ql (U) Negative Normal NEGATIVE [facility] Comment on above: Performed By: #### P REGU, ERUR, UMICRO #### [facility] [address] [place] [address] Dr. Dacia Ackerman pH (U) 7.5 [pH] Normal 5-[address] [facility] Comment on above: Performed By: #### P REGU, ERUR, UMICRO #### [facility] [address] [place] [address] Dr. Dacia Ackerman Protein (U) [Mass/Vol] 100 mg/dL Abnormal NEGAT JOAO/ TRACE [facility] Comment on above: Performed By: #### P REGU, ERUR, UMICRO #### [facility] [address] [place] [address] Dr. Dacia Ackerman SPEC GRAVITY 1.020 Normal 1.005-<=1. [address] [facility] Comment on above: Performed By: #### P REGU, ERUR, UMICRO #### [facility] [address] [place] [address] Dr. Dacia Ackerman UR MICRO IND INDICATED Normal [facility] Comment on above: Performed By: #### P REGU, ERUR, UMICRO #### [facility] [address] [place] [address] Dr. Dacia Ackerman Urobilinogen Qn (U) 1.0 {Kaykay'U}/dL Normal 0.2 - 1. [address] [facility] Comment on above: Performed By: #### P REGU, ERUR, UMICRO #### [facility] [address] [place] [address] Dr. Dacia Ackerman INFLUENZA A AND B AGon 01-01 INFLUANEGH SEE BELOW Normal [facility] Comment on above: Result Comment: Nega tive for Flu A protein angiten. Infection due to Flu A cannot be ruled out. Flu A angiten in the sample may be below the detection limit of the test. Performed By: #### I NFLUAB #### [facility] [address] [place] [address] Dr. Dacia Ackerman INFLUBNEGH SEE BELOW Normal [facility] Comment on above: Result Comment: Nega tive for Flu B protein antigen. Infection due to Flu B cannot be ruled out. Flu B antigen in the sample may be below the detection limit of the test. Performed By: #### I NFLUAB #### [facility] [address] [place] [address] Dr. Dacia Ackerman INFLUENZA A AG Negative Normal NEGATIVE SEE COMMENT [facility] Comment on above: Performed By: #### I NFLUAB #### [facility] [address] [place] [address] Dr. Dacia Ackerman INFLUENZA B AG Negative Normal NEGATIVE SEE COMMENT [facility] Comment on above: Performed By: #### I NFLUAB #### [facility] [address] [place] [address] Dr. Dacia Ackerman URon 01-01-2023 , QUAL Negative Normal NEGATIVE [facility] Comment on above: Performed By: #### P REGU, ERUR, UMICRO #### [facility] [address] [place] [address] Dr. Dacia Ackerman URINE MICROSCOPIC ONLYon BACTERIA MODERATE Abnormal NONE SEEN [facility] Comment on above: Performed By: #### P REGU, ERUR, UMICRO #### [facility] [address] [place] [address] Dr. Dacia Ackerman Bacteria identified Cx Nom (U) INDICATED Normal [facility] Comment on above: Performed By: #### P REGU, ERUR, UMICRO #### [facility] [address] [place] [address] Dr. Dacia Ackerman CAST NONE SEEN Normal NONE SEEN [facility] Comment on above: Performed By: #### P REGU, ERUR, UMICRO #### [facility] [address] [place] [address] Dr. Dacia Ackerman Crystals LM Nom (Urine sed) NONE SEEN Normal NONE SEEN [facility] Comment on above: Performed By: #### P REGU, ERUR, UMICRO #### [facility] [address] [place] [address] Dr. Dacia Ackerman Epithelial cells LM Ql (Urine sed) MANY Abnormal NONE SEEN /RARE [facility] Comment on above: Performed By: #### P REGU, ERUR, UMICRO #### [facility] [address] [address] [address] Dacia Ackerman MUCOUS SMALL Abnormal NONE SEEN [facility] Comment on above: Performed By: #### P REGU, ERUR, UMICRO #### [facility] [address] [address] [address] Dacia Ackerman RBC NONE SEEN Abnormal 0-[address] [facility] Comment on above: Performed By: #### P REGU, ERUR, UMICRO #### [facility] [address] [address] [address] Dacia Ackerman WBC 5-10 Abnormal NONE SEEN [facility] Comment on above: Performed By: #### P REGU, ERUR, UMICRO #### [facility] [address] [address] [address] Dacia Ackerman XR CHEST 1 Von [...] KIA ARVIZU Date: 2023-01-01 13:00 Normal [facility] Automated erythrocytes count in urine sediment (number/area)Ordered By: Federico Randolph on 12-31-2022 RBC Auto (Urine sed) [#/Area] 0-1 [HPF] 0-4 [facility] Automated leukocytes count i n urine sediment (number/area)Ordered By: Federico Randolph on 12-31-2022 WBC Auto (Urine sed) [#/Area] 20-49 [HPF] 0-4 [facility] Bacteria identified Cx Nom ( U)Ordered By: Federico Randolph on 12-31-2022 Urine culture routine Staphylococcus epidermidis [facility] Bilirubin Test strip Ql (U)O rdered By: Federico Randolph on 12-31-2022 Bilirubin Ql (U) Negative Negative [facility] COVID-19 SOFIAOrdered By: Deep Randolph on 12-31-2022 SARS-CoV+SARS-CoV-2 (COVID-19) Ag IA.rapid Ql (Resp) Negative Negative [facility] Casts typing in urine sedime nt by light microscopyOrdered By: Federico Randolph on 12-31-2022 Casts LM Nom (Urine sed) None seen [LPF] None Seen [facility] Color Auto (U)Ordered By: Deep Randolph on 12-31-2022 Color (U) Yellow Yellow [facility] HCG ( test) IA.rapi d Ql (U)Ordered By: Federico Randolph on 12-31-2022 HCG ( test) Ql (U) Negative [facility] Influenza virus A and B anti gen detection by immunoassayOrdered By: Federico Randolph on 12-31-2022 FLUAV+FLUBV Ag IA Ql (Unsp spec) [facility] Ketones Auto test strip (U) [Mass/Vol]Ordered By: Federico Randolph on 12-31-2022 Ketones (U) [Mass/Vol] 3+ Negative [facility] Nitrite Test strip Ql (U)Ord ered By: Federico Randolph on 12-31-2022 Nitrite Ql (U) Negative Negative [facility] No Panel InformationOrdered By: Federico Randolph on 12-31-2022 None seen [LPF] 0-8 [facility] Protein Auto test strip (U) [Mass/Vol]Ordered By: Federico Randolph on 12-31-2022 Protein (U) [Mass/Vol] 100 mg/dL Negative [facility] Specific gravity Auto test s trip (U) [Rel density]Ordered By: Federico Randolph on 12-31-2022 Specific gravity (U) [Rel density] 1.026 1.001-1.03 0 [facility] Squamous epithelial cells de tection in urine sediment by light microscopyOrdered By: Federico Randolph on 12-31-2022 Epithelial cells.squamous LM Ql (Urine sed) Innumerable [HPF] 0-2 [facility] Urine bacteria detection by automated methodOrdered By: Federico Randolph on 12-31-2022 Bacteria Auto Ql (U) 3+ None Seen [facility] Urine clarity by refractomet ry automatedOrdered By: Federico Randolph on 12-31-2022 Clarity Refractometry automated (U) Turbid Clear [facility] Urine glucose measurement by automated test strip (mass/volume)Ordered By: Federico Randolph on 12-31-2022 Glucose Auto test strip (U) [Mass/Vol] Normal mg/dL Normal [facility] Urine hemoglobin detection b y automated test stripOrdered By: Federico Randolph on 12-31-2022 Hemoglobin Auto test strip Ql (U) Negative Negative [facility] Urine leukocyte esterase det ection by automated test stripOrdered By: Federico Randolph on 12-31-2022 Leukocyte esterase Auto test strip Ql (U) 2+ Negative [facility] Urobilinogen Auto test strip (U) [Mass/Vol]Ordered By: Federico Randolph on 12-31-2022 Urobilinogen (U) [Mass/Vol] Normal mg/dL Normal [facility] pH Auto test strip (U)Ordere d By: Federico Randolph on 12-31-2022 pH (U) [pH] 5.0-9.0 [facility] Amphetamine Screen Ql (U)Ord ered By: Dixon Newberry on 11-09-2022 Amphetamines Ql (U) Negative Negative [facility] Barbiturates [Presence] in U rineOrdered By: Dixon Newberry on 11-09-2022 Barbiturates Ql (U) Negative Negative [facility] Basophils Auto (Bld) [#/Vol] Ordered By: Dixon Newberry on 11-09-2022 Basophils (Bld) [#/Vol] 0.0 10*3/uL 0.0-0.1 [facility] Basophils/100 WBC Auto (Bld) Ordered By: Dixon Newberry on 11-09-2022 Basophils/100 WBC (Bld) 0.3 % . [facility] Benzodiazepines [Presence] i n UrineOrdered By: Dixon Newberry on 11-09-2022 Benzodiazepines Ql (U) Negative Negative [facility] Bilirubin Test strip Ql (U)O rdered By: Dixon Newberry on 11-09-2022 Bilirubin Ql (U) Negative Negative [facility] Body fluid albumin measureme nt (mass/volume)Ordered By: Dixon Newberry on 11-09-2022 Albumin (Body fld) [Mass/Vol] 4.2 g/dL 3.2-5.5 [facility] Cannabinoids [Presence] in U rine by Screen methodOrdered By: Dixon Newberry on 11-09-2022 Cannabinoids Screen Ql (U) Positive Negative [facility] Color Auto (U)Ordered By: Nazia Newberry on 11-09-2022 Color (U) Yellow Yellow [facility] Eosinophils Auto (Bld) [#/Vo l]Ordered By: Dixon Newberry on 11-09-2022 Eosinophils (Bld) [#/Vol] 0.1 10*3/uL 0.0-0.7 [facility] Eosinophils/100 WBC Auto (Bl d)Ordered By: Dixon Newberry on 11-09-2022 Eosinophils/100 WBC (Bld) 0.8 % . [facility] Erythrocyte distribution wid th Auto (RBC) [Ratio]Ordered By: Dioxn Newberry on 11-09-2022 Erythrocyte distribution width (RBC) [Ratio] 13.8 % 11.9-15.3 [facility] Estimated glomerular filtrat ion rate (GFR) non- AmericanOrdered By: Dixon Newberry on 11-09-2022 GFR/1.73 sq M.predicted among non-blacks MDRD (S/P/Bld) [Vol rate/Area] > 60 mL/Min [facility] Globulin Calc (S) [Mass/Vol] Ordered By: Dixon Newberry on 11-09-2022 Globulin (S) [Mass/Vol] 2.4 g/dL [facility] HCG ( test) IA.rapi d Ql (U)Ordered By: Dixon Newberry on 11-09-2022 HCG ( test) Ql (U) Negative [facility] Hematocrit Auto (Bld) [Volum e fraction]Ordered By: Dixon Newberry on 11-09-2022 Hematocrit (Bld) [Volume fraction] 41.0 % 36.0-46.0 [facility] Hemoglobin [Mass/volume] in BloodOrdered By: Dixon Newberry on 11-09-2022 Hemoglobin (Bld) [Mass/Vol] 13.4 g/dL 12.0-16.0 [facility] Ketones Auto test strip (U) [Mass/Vol]Ordered By: Dixon Newberry on 11-09-2022 Ketones (U) [Mass/Vol] Negative Negative [facility] Leukocytes [#/volume] correc venkata for nucleated erythrocytes in Blood by Automated counOrdered By: Dixon Newberry on 11-09-2022 WBC corrected for nucl RBC Auto (Bld) [#/Vol] 11.7 10*3/uL 4.5-13.5 [facility] Lymphocytes Auto (Bld) [#/Vo l]Ordered By: Dixon Newberry on 11-09-2022 Lymphocytes (Bld) [#/Vol] 1.4 10*3/uL 1.20-4.8 [facility] Lymphocytes/100 WBC Auto (Bl d)Ordered By: Dixon Newberry on 11-09-2022 Lymphocytes/100 WBC (Bld) 12.1 % . [facility] MCH Auto (RBC) [Entitic mass ]Ordered By: Dixon eNwberry on 11-09-2022 MCH (RBC) [Entitic mass] 28.1 pg 25.0-35.0 [facility] MCHC Auto (RBC) [Mass/Vol]Or dered By: Dixon Newberry on 11-09-2022 MCHC (RBC) [Mass/Vol] 32.8 g/dL 31.0-37.0 [facility] MCV Auto (RBC) [Entitic vol] Ordered By: Dixon Newberry on 11-09-2022 MCV (RBC) [Entitic vol] 85.7 fL 78-102 [facility] Monocyte distribution width [Entitic volume] in Blood by AutomatedOrdered By: Dixon Newberry on 11-09-2022 Monocyte distribution width Auto (Bld) [Entitic vol] 16.08 % 0.00-20.00 [facility] Monocytes Auto (Bld) [#/Vol] Ordered By: Dixon Newberry on 11-09-2022 Monocytes (Bld) [#/Vol] 0.5 10*3/uL 0.1-1.00 [facility] Monocytes/100 WBC Auto (Bld) Ordered By: Dixon Newberry on 11-09-2022 Monocytes/100 WBC (Bld) 4.7 % . [facility] Neutrophils Auto (Bld) [#/Vo l]Ordered By: Dxion Newberry on 11-09-2022 Neutrophils (Bld) [#/Vol] 9.6 10*3/uL 1.2-7.7 [facility] Neutrophils/100 WBC Auto (Bl d)Ordered By: Dixon Newberry on 11-09-2022 Neutrophils/100 WBC (Bld) 82.1 % . [facility] Nitrite Test strip Ql (U)Ord ered By: Dixon Newberry on 11-09-2022 Nitrite Ql (U) Negative Negative [facility] No Panel InformationOrdered By: Dixon Newberry on 11-09-2022 Negative Negative [facility] > 60 mL/Min [facility] 118.86 [facility] Nucleated erythrocytes [Pres ence] in Blood by Automated countOrdered By: Dixon Newberry on 11-09-2022 Nucleated RBC Auto Ql (Bld) 0.1 /100{WBC} 0-0.5 [facility] Phencyclidine Screen Ql (U)O rdered By: Dixon Newberry on 11-09-2022 Phencyclidine Ql (U) Negative Negative [facility] Platelet mean volume Auto (B ld) [Entitic vol]Ordered By: Dixon Newberry on 11-09-2022 Platelet mean volume (Bld) [Entitic vol] 8.5 fL 6.3-10.7 [facility] Platelets Auto (Bld) [#/Vol] Ordered By: Dixon Newberry on 11-09-2022 Platelets (Bld) [#/Vol] 274 10*3/uL 150-450 [facility] Protein Auto test strip (U) [Mass/Vol]Ordered By: Dixon Newberry on 11-09-2022 Protein (U) [Mass/Vol] Negative Negative [facility] Protein [Mass/volume] in Ser um or PlasmaOrdered By: Dixon Newberry on 11-09-2022 Protein [Mass/Vol] 6.6 g/dL 6.1-7.9 [facility] RBC Auto (Bld) [#/Vol]Ordere d By: Dixon Newberry on 11-09-2022 RBC (Bld) [#/Vol] 4.78 10*6/uL 4.10-5.10 [facility] Serum or plasma alanine florez otransferase measurement without P-5'-P (enzymatic activiOrdered By: Dixon Newberry on 11-09-2022 ALT No additional P-5'-P [Catalytic activity/Vol] 67 U/L 10-60 [facility] Serum or plasma albumin/glob ulin mass ratioOrdered By: Dixon Newberry on 11-09-2022 Albumin/Globulin [Mass ratio] 1.8 {ratio} [facility] Serum or plasma alkaline justin sphatase measurement (enzymatic activity/volume)Ordered By: Dixon Newberry on 11-09-2022 ALP [Catalytic activity/Vol] 59 U/L 32-92 [facility] Serum or plasma anion gap de terminationOrdered By: Dixon Newberry on 11-09-2022 Anion gap [Moles/Vol] 19.7 mmol/L 6.0-15.0 [facility] Serum or plasma aspartate am inotransferase measurement (enzymatic activity/volume)Ordered By: Dixon Newberry on 11-09-2022 AST [Catalytic activity/Vol] 48 U/L 10-42 [facility] Serum or plasma calcium tammy urement (mass/volume)Ordered By: Dixon Newberry on 11-09-2022 Calcium [Mass/Vol] 9.6 mg/dL 8.2-10.2 [facility] Serum or plasma chloride judy surement (moles/volume)Ordered By: Dixon Newberry on 11-09-2022 Chloride [Moles/Vol] 98 mmol/L 95-114 [facility] Serum or plasma creatinine m easurement with calculation of estimated glomerular filtrOrdered By: Dixon Newberry on 11-09-2022 Creatinine and Glomerular filtration rate.predicted panel (S/P/Bld) 0.76 mg/dL 0.44-1.03 [facility] Serum or plasma glucose tammy urement (mass/volume)Ordered By: Dixon Newberry on 11-09-2022 Glucose [Mass/Vol] 110 mg/dL 70-100 [facility] Serum or plasma potassium me asurement (moles/volume)Ordered By: Dixon Newberry on 11-09-2022 Potassium [Moles/Vol] 3.4 mmol/L 3.5-5.1 [facility] Serum or plasma sodium measu rement (moles/volume)Ordered By: Dixon Newberry on 11-09-2022 Sodium [Moles/Vol] 137 mmol/L 136-146 [facility] Serum or plasma total biliru bin measurement (mass/volume)Ordered By: Dixon Newberry on 11-09-2022 Bilirubin [Mass/Vol] 0.5 mg/dL 0.3-1.2 [facility] Serum or plasma total carbon dioxide measurement (moles/volume)Ordered By: Dixon Newberry on 11-09-2022 CO2 [Moles/Vol] 22.7 mmol/L 22.0-30.0 [facility] Serum or plasma urea nitroge n measurement (mass/volume)Ordered By: Dixon Newberry on 11-09-2022 Urea nitrogen [Mass/Vol] 3 mg/dL 9-23 [facility] Specific gravity Auto test s trip (U) [Rel density]Ordered By: Dixon Newberry on 11-09-2022 Specific gravity (U) [Rel density] 1.009 1.001-1.03 0 [facility] Urine clarity by refractomet ry automatedOrdered By: Dixon Newberry on 11-09-2022 Clarity Refractometry automated (U) Clear Clear [facility] Urine cocaine detectionOrder ed By: Dixon Newberry on 11-09-2022 Cocaine Ql (U) Negative Negative [facility] Urine glucose measurement by automated test strip (mass/volume)Ordered By: Dixon Newberry on 11-09-2022 Glucose Auto test strip (U) [Mass/Vol] Normal mg/dL Normal [facility] Urine hemoglobin detection b y automated test stripOrdered By: Dixon Newberry on 11-09-2022 Hemoglobin Auto test strip Ql (U) Negative Negative [facility] Urine leukocyte esterase det ection by automated test stripOrdered By: Dixon Newberry on 11-09-2022 Leukocyte esterase Auto test strip Ql (U) Negative Negative [facility] Urobilinogen Auto test strip (U) [Mass/Vol]Ordered By: Dixon Newberry on 11-09-2022 Urobilinogen (U) [Mass/Vol] Normal mg/dL Normal [facility] WBC Auto (Bld) [#/Vol]Ordere d By: Dixon Newberry on 11-09-2022 WBC (Bld) [#/Vol] 11.7 10*3/uL 4.5-13.5 [facility] pH Auto test strip (U)Ordere d By: Dixon Newberry on 11-09-2022 pH (U) [pH] 5.0-9.0 [facility] Albumin [Mass/volume] in Ser um or PlasmaOrdered By: Art Bianchi on 11-07-2022 Albumin [Mass/Vol] 4.6 g/dL 3.2-5.5 [facility] Automated erythrocytes count in urine sediment (number/area)Ordered By: Art Bianchi on 11-07-2022 RBC Auto (Urine sed) [#/Area] 0-1 [HPF] 0-4 [facility] Automated leukocytes count i n urine sediment (number/area)Ordered By: Art Bianchi on 11-07-2022 WBC Auto (Urine sed) [#/Area] 3-4 [HPF] 0-4 [facility] Basophils Auto (Bld) [#/Vol] Ordered By: Art Bianchi on 11-07-2022 Basophils (Bld) [#/Vol] 0.1 10*3/uL 0.0-0.1 [facility] Basophils/100 WBC Auto (Bld) Ordered By: Art Bianchi on 11-07-2022 Basophils/100 WBC (Bld) 1.0 % . [facility] Bilirubin Test strip Ql (U)O rdered By: Art Bianchi on 11-07-2022 Bilirubin Ql (U) Negative Negative [facility] Color Auto (U)Ordered By: Adrian Bianchi on 11-07-2022 Color (U) Yellow Yellow [facility] Eosinophils Auto (Bld) [#/Vo l]Ordered By: Art Bianchi on 11-07-2022 Eosinophils (Bld) [#/Vol] 0.1 10*3/uL 0.0-0.7 [facility] Eosinophils/100 WBC Auto (Bl d)Ordered By: Art Bianchi on 11-07-2022 Eosinophils/100 WBC (Bld) 1.2 % . [facility] Erythrocyte distribution wid th Auto (RBC) [Ratio]Ordered By: Art Bianchi on 11-07-2022 Erythrocyte distribution width (RBC) [Ratio] 14.0 % 11.9-15.3 [facility] Estimated glomerular filtrat ion rate (GFR) non- AmericanOrdered By: Art Bianchi on 11-07-2022 GFR/1.73 sq M.predicted among non-blacks MDRD (S/P/Bld) [Vol rate/Area] > 60 mL/Min [facility] Globulin Calc (S) [Mass/Vol] Ordered By: Art Bianchi on 11-07-2022 Globulin (S) [Mass/Vol] 2.7 g/dL [facility] HCG ( test) IA.rapi d Ql (U)Ordered By: Art Bianchi on 11-07-2022 HCG ( test) Ql (U) Negative [facility] Hematocrit Auto (Bld) [Volum e fraction]Ordered By: Art Bianchi on 11-07-2022 Hematocrit (Bld) [Volume fraction] 43.2 % 36.0-46.0 [facility] Hemoglobin [Mass/volume] in BloodOrdered By: Art Bianchi on 11-07-2022 Hemoglobin (Bld) [Mass/Vol] 14.8 g/dL 12.0-16.0 [facility] Ketones Auto test strip (U) [Mass/Vol]Ordered By: Art Bianchi on 11-07-2022 Ketones (U) [Mass/Vol] 1+ Negative [facility] Leukocytes [#/volume] correc venkata for nucleated erythrocytes in Blood by Automated counOrdered By: Art Bianchi on 11-07-2022 WBC corrected for nucl RBC Auto (Bld) [#/Vol] 10.3 10*3/uL 4.5-13.5 [facility] Lymphocytes Auto (Bld) [#/Vo l]Ordered By: Art Bianchi on 11-07-2022 Lymphocytes (Bld) [#/Vol] 2.1 10*3/uL 1.20-4.8 [facility] Lymphocytes/100 WBC Auto (Bl d)Ordered By: Art Bianchi on 11-07-2022 Lymphocytes/100 WBC (Bld) 20.8 % . [facility] MCH Auto (RBC) [Entitic mass ]Ordered By: Art Bianchi on 11-07-2022 MCH (RBC) [Entitic mass] 28.8 pg 25.0-35.0 [facility] MCHC Auto (RBC) [Mass/Vol]Or dered By: Art Bianchi on 11-07-2022 MCHC (RBC) [Mass/Vol] 34.3 g/dL 31.0-37.0 [facility] MCV Auto (RBC) [Entitic vol] Ordered By: Art Bianchi on 11-07-2022 MCV (RBC) [Entitic vol] 84.1 fL 78-102 [facility] Monocyte distribution width [Entitic volume] in Blood by AutomatedOrdered By: Art Bianchi on 11-07-2022 Monocyte distribution width Auto (Bld) [Entitic vol] 17.07 % 0.00-20.00 [facility] Monocytes Auto (Bld) [#/Vol] Ordered By: Art Bianchi on 11-07-2022 Monocytes (Bld) [#/Vol] 0.8 10*3/uL 0.1-1.00 [facility] Monocytes/100 WBC Auto (Bld) Ordered By: Art Bianchi on 11-07-2022 Monocytes/100 WBC (Bld) 8.1 % . [facility] Neutrophils Auto (Bld) [#/Vo l]Ordered By: Art Bianchi on 11-07-2022 Neutrophils (Bld) [#/Vol] 7.1 10*3/uL 1.2-7.7 [facility] Neutrophils/100 WBC Auto (Bl d)Ordered By: Art Bianchi on 11-07-2022 Neutrophils/100 WBC (Bld) 68.9 % . [facility] Nitrite Test strip Ql (U)Ord ered By: Art Bianchi on 11-07-2022 Nitrite Ql (U) Negative Negative [facility] No Panel InformationOrdered By: Art Bianchi on 11-07-2022 0-8 [LPF] 0-8 [facility] > 60 mL/Min [facility] 43.0 U/L 22-51 [facility] 104.35 [facility] Nucleated erythrocytes [Pres ence] in Blood by Automated countOrdered By: Art Bianchi on 11-07-2022 Nucleated RBC Auto Ql (Bld) 0.3 /100{WBC} 0-0.5 [facility] Platelet mean volume Auto (B ld) [Entitic vol]Ordered By: Art Bianchi on 11-07-2022 Platelet mean volume (Bld) [Entitic vol] 8.4 fL 6.3-10.7 [facility] Platelets Auto (Bld) [#/Vol] Ordered By: rAt Biacnhi on 11-07-2022 Platelets (Bld) [#/Vol] 308 10*3/uL 150-450 [facility] Protein Auto test strip (U) [Mass/Vol]Ordered By: Art Bianchi on 11-07-2022 Protein (U) [Mass/Vol] Trace mg/dL Negative F [facility] Protein [Mass/volume] in Ser um or PlasmaOrdered By: Art Bianchi on 11-07-2022 Protein [Mass/Vol] 7.3 g/dL 6.1-7.9 [facility] RBC Auto (Bld) [#/Vol]Ordere d By: Art Bianchi on 11-07-2022 RBC (Bld) [#/Vol] 5.14 10*6/uL 4.10-5.10 [facility] Serum or plasma alanine florez otransferase measurement without P-5'-P (enzymatic activiOrdered By: Art Bianchi on 11-07-2022 ALT No additional P-5'-P [Catalytic activity/Vol] 24 U/L 10-60 [facility] Serum or plasma albumin/glob ulin mass ratioOrdered By: Art Bianchi on 11-07-2022 Albumin/Globulin [Mass ratio] 1.7 {ratio} [facility] Serum or plasma alkaline justin sphatase measurement (enzymatic activity/volume)Ordered By: Art Bianchi on 11-07-2022 ALP [Catalytic activity/Vol] 60 U/L 32-92 [facility] Serum or plasma anion gap de terminationOrdered By: Art Bianchi on 11-07-2022 Anion gap [Moles/Vol] 12.2 mmol/L 6.0-15.0 [facility] Serum or plasma aspartate am inotransferase measurement (enzymatic activity/volume)Ordered By: Art Bianchi on 11-07-2022 AST [Catalytic activity/Vol] 25 U/L 10-42 [facility] Serum or plasma calcium tammy urement (mass/volume)Ordered By: Art Bianchi on 11-07-2022 Calcium [Mass/Vol] 9.6 mg/dL 8.2-10.2 [facility] Serum or plasma chloride judy surement (moles/volume)Ordered By: Art Bianchi on 11-07-2022 Chloride [Moles/Vol] 98 mmol/L 95-114 [facility] Serum or plasma creatinine m easurement with calculation of estimated glomerular filtrOrdered By: Art Bianchi on 11-07-2022 Creatinine and Glomerular filtration rate.predicted panel (S/P/Bld) 0.84 mg/dL 0.44-1.03 [facility] Serum or plasma glucose tammy urement (mass/volume)Ordered By: Art Bianchi on 11-07-2022 Glucose [Mass/Vol] 106 mg/dL 70-100 [facility] Serum or plasma potassium me asurement (moles/volume)Ordered By: Art Bianchi on 11-07-2022 Potassium [Moles/Vol] 3.2 mmol/L 3.5-5.1 [facility] Serum or plasma sodium measu rement (moles/volume)Ordered By: Art Bianchi on 11-07-2022 Sodium [Moles/Vol] 132 mmol/L 136-146 [facility] Serum or plasma total biliru bin measurement (mass/volume)Ordered By: Art Bianchi on 11-07-2022 Bilirubin [Mass/Vol] 0.8 mg/dL 0.3-1.2 [facility] Serum or plasma total carbon dioxide measurement (moles/volume)Ordered By: Art Bianchi on 11-07-2022 CO2 [Moles/Vol] 25.0 mmol/L 22.0-30.0 [facility] Serum or plasma urea nitroge n measurement (mass/volume)Ordered By: Art Bianchi on 11-07-2022 Urea nitrogen [Mass/Vol] 6 mg/dL 9-23 [facility] Specific gravity Auto test s trip (U) [Rel density]Ordered By: Art Bianchi on 11-07-2022 Specific gravity (U) [Rel density] 1.014 1.001-1.03 0 [facility] Squamous epithelial cells de tection in urine sediment by light microscopyOrdered By: Art Bianchi on 11-07-2022 Epithelial cells.squamous LM Ql (Urine sed) 5-9 [HPF] 0-2 [facility] Urine bacteria detection by automated methodOrdered By: Art Bianchi on 11-07-2022 Bacteria Auto Ql (U) None seen None Seen [facility] Urine clarity by refractomet ry automatedOrdered By: Art Bianchi on 11-07-2022 Clarity Refractometry automated (U) Clear Clear [facility] Urine glucose measurement by automated test strip (mass/volume)Ordered By: Art Bianchi on 11-07-2022 Glucose Auto test strip (U) [Mass/Vol] Normal mg/dL Normal [facility] Urine hemoglobin detection b y automated test stripOrdered By: Art Bianchi on 11-07-2022 Hemoglobin Auto test strip Ql (U) Negative Negative [facility] Urine leukocyte esterase det ection by automated test stripOrdered By: Art Bianchi on 11-07-2022 Leukocyte esterase Auto test strip Ql (U) Negative Negative [facility] Urobilinogen Auto test strip (U) [Mass/Vol]Ordered By: Art Bianchi on 11-07-2022 Urobilinogen (U) [Mass/Vol] Normal mg/dL Normal [facility] WBC Auto (Bld) [#/Vol]Ordere d By: Art Bianchi on 11-07-2022 WBC (Bld) [#/Vol] 10.3 10*3/uL 4.5-13.5 [facility] pH Auto test strip (U)Ordere d By: Art Bianchi on 11-07-2022 pH (U) 8.5 [pH] 5.0-9.0 [facility] Urine culture routineOrdered By: Colten Fry on 11-04-2022 Bacteria identified Cx Nom (U) 2 Days [facility] Albumin [Mass/volume] in Ser um or PlasmaOrdered By: Coletn Fry on 11-02-2022 Albumin [Mass/Vol] 4.8 g/dL 3.2-5.5 [facility] Amphetamine Screen Ql (U)Ord ered By: Colten Fry on 11-02-2022 Amphetamines Ql (U) Negative Negative [facility] Automated erythrocytes count in urine sediment (number/area)Ordered By: Colten Fry on 11-02-2022 RBC Auto (Urine sed) [#/Area] 20-49 [HPF] 0-4 [facility] Automated leukocytes count i n urine sediment (number/area)Ordered By: Colten Fry on 11-02-2022 WBC Auto (Urine sed) [#/Area] 5-9 [HPF] 0-4 [facility] Barbiturates [Presence] in U rineOrdered By: Colten Fry on 11-02-2022 Barbiturates Ql (U) Negative Negative [facility] Basophils Auto (Bld) [#/Vol] Ordered By: Colten Fry on 11-02-2022 Basophils (Bld) [#/Vol] 0.1 10*3/uL 0.0-0.1 [facility] Basophils/100 WBC Auto (Bld) Ordered By: Colten Fry on 11-02-2022 Basophils/100 WBC (Bld) 0.5 % . [facility] Benzodiazepines [Presence] i n UrineOrdered By: Colten Fry on 11-02-2022 Benzodiazepines Ql (U) Negative Negative [facility] Bilirubin Test strip Ql (U)O rdered By: Colten Fry on 11-02-2022 Bilirubin Ql (U) Negative Negative [facility] Cannabinoids [Presence] in U rine by Screen methodOrdered By: Colten Fry on 11-02-2022 Cannabinoids Screen Ql (U) Positive Negative [facility] Color Auto (U)Ordered By: Vida Fry on 11-02-2022 Color (U) Yellow Yellow [facility] Eosinophils Auto (Bld) [#/Vo l]Ordered By: Colten Fry on 11-02-2022 Eosinophils (Bld) [#/Vol] 0.3 10*3/uL 0.0-0.7 [facility] Eosinophils/100 WBC Auto (Bl d)Ordered By: Colten Fry on 11-02-2022 Eosinophils/100 WBC (Bld) 2.1 % . [facility] Erythrocyte distribution wid th Auto (RBC) [Ratio]Ordered By: Colten Fry on 11-02-2022 Erythrocyte distribution width (RBC) [Ratio] 13.7 % 11.9-15.3 [facility] Estimated glomerular filtrat ion rate (GFR) non- AmericanOrdered By: Colten Fry on 11-02-2022 GFR/1.73 sq M.predicted among non-blacks MDRD (S/P/Bld) [Vol rate/Area] > 60 mL/Min [facility] Globulin Calc (S) [Mass/Vol] Ordered By: Colten Fry on 11-02-2022 Globulin (S) [Mass/Vol] 3.1 g/dL [facility] HCG ( test) IA.rapi d Ql (U)Ordered By: Colten Fry on 11-02-2022 HCG ( test) Ql (U) Negative [facility] Hematocrit Auto (Bld) [Volum e fraction]Ordered By: Colten Fry on 11-02-2022 Hematocrit (Bld) [Volume fraction] 45.3 % 36.0-46.0 [facility] Hemoglobin [Mass/volume] in BloodOrdered By: Colten Fry on 11-02-2022 Hemoglobin (Bld) [Mass/Vol] 15.4 g/dL 12.0-16.0 [facility] Ketones Auto test strip (U) [Mass/Vol]Ordered By: Colten Fry on 11-02-2022 Ketones (U) [Mass/Vol] 3+ Negative [facility] Leukocytes [#/volume] correc venkata for nucleated erythrocytes in Blood by Automated counOrdered By: Colten Fry on 11-02-2022 WBC corrected for nucl RBC Auto (Bld) [#/Vol] 11.7 10*3/uL 4.5-13.5 [facility] Lymphocytes Auto (Bld) [#/Vo l]Ordered By: Colten Fry on 11-02-2022 Lymphocytes (Bld) [#/Vol] 2.3 10*3/uL 1.20-4.8 [facility] Lymphocytes/100 WBC Auto (Bl d)Ordered By: Colten Fry on 11-02-2022 Lymphocytes/100 WBC (Bld) 19.6 % . [facility] MCH Auto (RBC) [Entitic mass ]Ordered By: Colten Fry on 11-02-2022 MCH (RBC) [Entitic mass] 28.4 pg 25.0-35.0 [facility] MCHC Auto (RBC) [Mass/Vol]Or dered By: Colten Fry on 11-02-2022 MCHC (RBC) [Mass/Vol] 34.0 g/dL 31.0-37.0 [facility] MCV Auto (RBC) [Entitic vol] Ordered By: Colten Fry on 11-02-2022 MCV (RBC) [Entitic vol] 83.3 fL 78-102 [facility] Monocytes Auto (Bld) [#/Vol] Ordered By: Colten Fry on 11-02-2022 Monocytes (Bld) [#/Vol] 1.0 10*3/uL 0.1-1.00 [facility] Monocytes/100 WBC Auto (Bld) Ordered By: Colten Fry on 11-02-2022 Monocytes/100 WBC (Bld) 8.5 % . [facility] Neutrophils Auto (Bld) [#/Vo l]Ordered By: Colten Fry on 11-02-2022 Neutrophils (Bld) [#/Vol] 8.1 10*3/uL 1.2-7.7 [facility] Neutrophils/100 WBC Auto (Bl d)Ordered By: Colten Fry on 11-02-2022 Neutrophils/100 WBC (Bld) 69.3 % . [facility] Nitrite Test strip Ql (U)Ord ered By: Colten Fry on 11-02-2022 Nitrite Ql (U) Negative Negative [facility] No Panel InformationOrdered By: Colten Fry on 11-02-2022 9-19 [LPF] 0-8 [facility] Negative Negative [facility] > 60 mL/Min [facility] 100.26 [facility] No Panel InformationOrdered By: Robert Bolanos on 11-02-2022 2.6 mg/dL 1.6-2.6 [facility] Nucleated erythrocytes [Pres ence] in Blood by Automated countOrdered By: Colten Fry on 11-02-2022 Nucleated RBC Auto Ql (Bld) 0.1 /100{WBC} 0-0.5 [facility] Phencyclidine Screen Ql (U)O rdered By: Colten Fry on 11-02-2022 Phencyclidine Ql (U) Negative Negative [facility] Platelet mean volume Auto (B ld) [Entitic vol]Ordered By: Colten Fry on 11-02-2022 Platelet mean volume (Bld) [Entitic vol] 7.9 fL 6.3-10.7 [facility] Platelets Auto (Bld) [#/Vol] Ordered By: Colten Fry on 11-02-2022 Platelets (Bld) [#/Vol] 292 10*3/uL 150-450 [facility] Protein Auto test strip (U) [Mass/Vol]Ordered By: Colten Fry on 11-02-2022 Protein (U) [Mass/Vol] 30 mg/dL Negative Fi [facility] Protein [Mass/volume] in Ser um or PlasmaOrdered By: Colten Fry on 11-02-2022 Protein [Mass/Vol] 7.9 g/dL 6.1-7.9 [facility] RBC Auto (Bld) [#/Vol]Ordere d By: Colten Fry on 11-02-2022 RBC (Bld) [#/Vol] 5.43 10*6/uL 4.10-5.10 [facility] Serum or plasma alanine florez otransferase measurement without P-5'-P (enzymatic activiOrdered By: Colten Fry on 11-02-2022 ALT No additional P-5'-P [Catalytic activity/Vol] 20 U/L 10-60 [facility] Serum or plasma albumin/glob ulin mass ratioOrdered By: Colten Fry on 11-02-2022 Albumin/Globulin [Mass ratio] 1.5 {ratio} [facility] Serum or plasma alkaline justin sphatase measurement (enzymatic activity/volume)Ordered By: Colten Fry on 11-02-2022 ALP [Catalytic activity/Vol] 65 U/L 32-92 [facility] Serum or plasma anion gap de terminationOrdered By: Colten Fry on 11-02-2022 Anion gap [Moles/Vol] 14.6 mmol/L 6.0-15.0 [facility] Serum or plasma aspartate am inotransferase measurement (enzymatic activity/volume)Ordered By: Colten Fry on 11-02-2022 AST [Catalytic activity/Vol] 19 U/L 10-42 [facility] Serum or plasma calcium tammy urement (mass/volume)Ordered By: Colten Fry on 11-02-2022 Calcium [Mass/Vol] 9.6 mg/dL 8.2-10.2 [facility] Serum or plasma chloride judy surement (moles/volume)Ordered By: Colten Fry on 11-02-2022 Chloride [Moles/Vol] 95 mmol/L 95-114 [facility] Serum or plasma creatinine m easurement with calculation of estimated glomerular filtrOrdered By: Colten Fry on 11-02-2022 Creatinine and Glomerular filtration rate.predicted panel (S/P/Bld) 0.88 mg/dL 0.44-1.03 [facility] Serum or plasma glucose tammy urement (mass/volume)Ordered By: Colten Fry on 11-02-2022 Glucose [Mass/Vol] 95 mg/dL 70-100 [facility] Serum or plasma potassium me asurement (moles/volume)Ordered By: Colten Fry on 11-02-2022 Potassium [Moles/Vol] 2.9 mmol/L 3.5-5.1 [facility] Serum or plasma sodium measu rement (moles/volume)Ordered By: Colten Fry on 11-02-2022 Sodium [Moles/Vol] 134 mmol/L 136-146 [facility] Serum or plasma total biliru bin measurement (mass/volume)Ordered By: Colten Fry on 11-02-2022 Bilirubin [Mass/Vol] 1.8 mg/dL 0.3-1.2 [facility] Serum or plasma total carbon dioxide measurement (moles/volume)Ordered By: Colten Fry on 11-02-2022 CO2 [Moles/Vol] 27.3 mmol/L 22.0-30.0 [facility] Serum or plasma urea nitroge n measurement (mass/volume)Ordered By: Colten Fry on 11-02-2022 Urea nitrogen [Mass/Vol] 24 mg/dL 9- [facility] Specific gravity Auto test s trip (U) [Rel density]Ordered By: Colten Fry on 11-02-2022 Specific gravity (U) [Rel density] 1.025 1.001-1.03 0 [facility] Squamous epithelial cells de tection in urine sediment by light microscopyOrdered By: Colten Fry on 11-02-2022 Epithelial cells.squamous LM Ql (Urine sed) 10-19 [HPF] 0-2 [facility] Urine bacteria detection by automated methodOrdered By: Colten Fry on 11-02-2022 Bacteria Auto Ql (U) None seen None Seen [facility] Urine clarity by refractomet ry automatedOrdered By: Colten Fry on 11-02-2022 Clarity Refractometry automated (U) Cloudy Clear [facility] Urine cocaine detectionOrder ed By: Colten Fry on 11-02-2022 Cocaine Ql (U) Negative Negative [facility] Urine culture routineOrdered By: Colten Fry on 11-02-2022 Bacteria identified Cx Nom (U) 2 Days [facility] Urine culture routineOrdered By: Art Bianchi on 11-02-2022 Bacteria identified Cx Nom (U) 2 Days [facility] Urine glucose measurement by automated test strip (mass/volume)Ordered By: Colten Fry on 11-02-2022 Glucose Auto test strip (U) [Mass/Vol] Normal mg/dL Normal [facility] Urine hemoglobin detection b y automated test stripOrdered By: Colten Fry on 11-02-2022 Hemoglobin Auto test strip Ql (U) 3+ Negative [facility] Urine leukocyte esterase det ection by automated test stripOrdered By: Colten Fry on 11-02-2022 Leukocyte esterase Auto test strip Ql (U) 2+ Negative [facility] Urobilinogen Auto test strip (U) [Mass/Vol]Ordered By: Colten Fry on 11-02-2022 Urobilinogen (U) [Mass/Vol] Normal mg/dL Normal [facility] WBC Auto (Bld) [#/Vol]Ordere d By: Colten Fry on 11-02-2022 WBC (Bld) [#/Vol] 11.7 10*3/uL 4.5-13.5 [facility] pH Auto test strip (U)Ordere d By: Colten Fry on 11-02-2022 pH (U) 7.0 [pH] 5.0-9.0 [facility] Albumin [Mass/volume] in Ser um or PlasmaOrdered By: Art Bianchi on 10-31-2022 Albumin [Mass/Vol] 5.1 g/dL 3.2-5.5 [facility] Automated erythrocytes count in urine sediment (number/area)Ordered By: Art Bianchi on 10-31-2022 RBC Auto (Urine sed) [#/Area] Innumerable [HPF] 0-4 [facility] Automated leukocytes count i n urine sediment (number/area)Ordered By: Art Bianchi on 10-31-2022 WBC Auto (Urine sed) [#/Area] 10-19 [HPF] 0-4 [facility] Basophils Auto (Bld) [#/Vol] Ordered By: Art Bianchi on 10-31-2022 Basophils (Bld) [#/Vol] 0.0 10*3/uL 0.0-0.1 [facility] Basophils/100 WBC Auto (Bld) Ordered By: Art Bianchi on 10-31-2022 Basophils/100 WBC (Bld) 0.3 % . [facility] Bilirubin Test strip Ql (U)O rdered By: Art Bianchi on 10-31-2022 Bilirubin Ql (U) Negative Negative [facility] Color Auto (U)Ordered By: Adrian Bianchi on 10-31-2022 Color (U) Red Yellow [facility] Eosinophils Auto (Bld) [#/Vo l]Ordered By: Art Bianchi on 10-31-2022 Eosinophils (Bld) [#/Vol] 0.1 10*3/uL 0.0-0.7 [facility] Eosinophils/100 WBC Auto (Bl d)Ordered By: Art Bianchi on 10-31-2022 Eosinophils/100 WBC (Bld) 1.0 % . [facility] Erythrocyte distribution wid th Auto (RBC) [Ratio]Ordered By: Art Bianchi on 10-31-2022 Erythrocyte distribution width (RBC) [Ratio] 14.0 % 11.9-15.3 [facility] Estimated glomerular filtrat ion rate (GFR) non- AmericanOrdered By: Art Bianchi on 10-31-2022 GFR/1.73 sq M.predicted among non-blacks MDRD (S/P/Bld) [Vol rate/Area] > 60 mL/Min [facility] Globulin Calc (S) [Mass/Vol] Ordered By: Art Bianchi on 10-31-2022 Globulin (S) [Mass/Vol] 3.1 g/dL [facility] HCG ( test) IA.rapi d Ql (U)Ordered By: Art Bianchi on 10-31-2022 HCG ( test) Ql (U) Negative [facility] Hematocrit Auto (Bld) [Volum e fraction]Ordered By: Art Bianchi on 10-31-2022 Hematocrit (Bld) [Volume fraction] 45.0 % 36.0-46.0 [facility] Hemoglobin [Mass/volume] in BloodOrdered By: Art Bianchi on 10-31-2022 Hemoglobin (Bld) [Mass/Vol] 15.2 g/dL 12.0-16.0 [facility] Ketones Auto test strip (U) [Mass/Vol]Ordered By: Art Bianchi on 10-31-2022 Ketones (U) [Mass/Vol] 3+ Negative [facility] Leukocytes [#/volume] correc venkata for nucleated erythrocytes in Blood by Automated counOrdered By: Art Bianchi on 10-31-2022 WBC corrected for nucl RBC Auto (Bld) [#/Vol] 14.0 10*3/uL 4.5-13.5 [facility] Lymphocytes Auto (Bld) [#/Vo l]Ordered By: Art Bianchi on 10-31-2022 Lymphocytes (Bld) [#/Vol] 2.2 10*3/uL 1.20-4.8 [facility] Lymphocytes/100 WBC Auto (Bl d)Ordered By: Art Bianchi on 10-31-2022 Lymphocytes/100 WBC (Bld) 15.5 % . [facility] MCH Auto (RBC) [Entitic mass ]Ordered By: Art Bianchi on 10-31-2022 MCH (RBC) [Entitic mass] 28.6 pg 25.0-35.0 [facility] MCHC Auto (RBC) [Mass/Vol]Or dered By: Art Bianchi on 10-31-2022 MCHC (RBC) [Mass/Vol] 33.7 g/dL 31.0-37.0 [facility] MCV Auto (RBC) [Entitic vol] Ordered By: Art Bianchi on 10-31-2022 MCV (RBC) [Entitic vol] 85.0 fL 78-102 [facility] Monocyte distribution width [Entitic volume] in Blood by AutomatedOrdered By: Art Bianchi on 10-31-2022 Monocyte distribution width Auto (Bld) [Entitic vol] 14.69 % 0.00-20.00 [facility] Monocytes Auto (Bld) [#/Vol] Ordered By: Art Bianchi on 10-31-2022 Monocytes (Bld) [#/Vol] 1.3 10*3/uL 0.1-1.00 [facility] Monocytes/100 WBC Auto (Bld) Ordered By: Art Bianchi on 10-31-2022 Monocytes/100 WBC (Bld) 9.1 % . [facility] Neutrophils Auto (Bld) [#/Vo l]Ordered By: Art Bianchi on 10-31-2022 Neutrophils (Bld) [#/Vol] 10.4 10*3/uL 1.2-7.7 [facility] Neutrophils/100 WBC Auto (Bl d)Ordered By: Art Bianchi on 10-31-2022 Neutrophils/100 WBC (Bld) 74.1 % . [facility] Nitrite Test strip Ql (U)Ord ered By: Art Bianchi on 10-31-2022 Nitrite Ql (U) Negative Negative [facility] No Panel InformationOrdered By: Art Bianchi on 10-31-2022 0-8 [LPF] 0-8 [facility] > 60 mL/Min [facility] 29.0 U/L 22-51 [facility] 102.97 [facility] Nucleated erythrocytes [Pres ence] in Blood by Automated countOrdered By: Art Bianchi on 10-31-2022 Nucleated RBC Auto Ql (Bld) 0.1 /100{WBC} 0-0.5 [facility] Platelet mean volume Auto (B ld) [Entitic vol]Ordered By: Art Bianchi on 10-31-2022 Platelet mean volume (Bld) [Entitic vol] 8.3 fL 6.3-10.7 [facility] Platelets Auto (Bld) [#/Vol] Ordered By: Art Bianchi on 10-31-2022 Platelets (Bld) [#/Vol] 337 10*3/uL 150-450 [facility] Protein Auto test strip (U) [Mass/Vol]Ordered By: Art Bianchi on 10-31-2022 Protein (U) [Mass/Vol] 100 mg/dL Negative [facility] Protein [Mass/volume] in Ser um or PlasmaOrdered By: Art Bianchi on 10-31-2022 Protein [Mass/Vol] 8.2 g/dL 6.1-7.9 [facility] RBC Auto (Bld) [#/Vol]Ordere d By: Art Bianchi on 10-31-2022 RBC (Bld) [#/Vol] 5.29 10*6/uL 4.10-5.10 [facility] Serum or plasma alanine florez otransferase measurement without P-5'-P (enzymatic activiOrdered By: Art Bianchi on 10-31-2022 ALT No additional P-5'-P [Catalytic activity/Vol] 25 U/L 10-60 [facility] Serum or plasma albumin/glob ulin mass ratioOrdered By: Art Bianchi on 10-31-2022 Albumin/Globulin [Mass ratio] 1.6 {ratio} [facility] Serum or plasma alkaline justin sphatase measurement (enzymatic activity/volume)Ordered By: Art Bianchi on 10-31-2022 ALP [Catalytic activity/Vol] 62 U/L 32-92 [facility] Serum or plasma anion gap de terminationOrdered By: Art Bianchi on 10-31-2022 Anion gap [Moles/Vol] 16.8 mmol/L 6.0-15.0 [facility] Serum or plasma aspartate am inotransferase measurement (enzymatic activity/volume)Ordered By: Art Bianchi on 10-31-2022 AST [Catalytic activity/Vol] 25 U/L 10-42 [facility] Serum or plasma calcium tammy urement (mass/volume)Ordered By: Art Bianchi on 10-31-2022 Calcium [Mass/Vol] 9.9 mg/dL 8.2-10.2 [facility] Serum or plasma chloride judy surement (moles/volume)Ordered By: Art Bianchi on 10-31-2022 Chloride [Moles/Vol] 96 mmol/L 95-114 [facility] Serum or plasma creatinine m easurement with calculation of estimated glomerular filtrOrdered By: Art Bianchi on 10-31-2022 Creatinine and Glomerular filtration rate.predicted panel (S/P/Bld) 0.89 mg/dL 0.44-1.03 [facility] Serum or plasma glucose tammy urement (mass/volume)Ordered By: Art Bianchi on 10-31-2022 Glucose [Mass/Vol] 120 mg/dL 70-100 [facility] Serum or plasma potassium me asurement (moles/volume)Ordered By: Art Bianchi on 10-31-2022 Potassium [Moles/Vol] 3.2 mmol/L 3.5-5.1 [facility] Serum or plasma sodium measu rement (moles/volume)Ordered By: Art Bianchi on 10-31-2022 Sodium [Moles/Vol] 132 mmol/L 136-146 [facility] Serum or plasma total biliru bin measurement (mass/volume)Ordered By: Art Bianchi on 10-31-2022 Bilirubin [Mass/Vol] 1.7 mg/dL 0.3-1.2 [facility] Serum or plasma total carbon dioxide measurement (moles/volume)Ordered By: Art Bianchi on 10-31-2022 CO2 [Moles/Vol] 22.4 mmol/L 22.0-30.0 [facility] Serum or plasma urea nitroge n measurement (mass/volume)Ordered By: Art Bianchi on 10-31-2022 Urea nitrogen [Mass/Vol] 28 mg/dL 9-23 [facility] Specific gravity Auto test s trip (U) [Rel density]Ordered By: Art Bianchi on 10-31-2022 Specific gravity (U) [Rel density] 1.030 1.001-1.03 0 [facility] Squamous epithelial cells de tection in urine sediment by light microscopyOrdered By: Art Bianchi on 10-31-2022 Epithelial cells.squamous LM Ql (Urine sed) 10-19 [HPF] 0-2 [facility] Urine bacteria detection by automated methodOrdered By: Art Bianchi on 10-31-2022 Bacteria Auto Ql (U) None seen None Seen [facility] Urine clarity by refractomet ry automatedOrdered By: Art Bianchi on 10-31-2022 Clarity Refractometry automated (U) Cloudy Clear [facility] Urine culture routineOrdered By: Art Bianchi on 10-31-2022 Bacteria identified Cx Nom (U) 2 Days [facility] Urine glucose measurement by automated test strip (mass/volume)Ordered By: Art Bianchi on 10-31-2022 Glucose Auto test strip (U) [Mass/Vol] Normal mg/dL Normal [facility] Urine hemoglobin detection b y automated test stripOrdered By: Art Bianchi on 10-31-2022 Hemoglobin Auto test strip Ql (U) 3+ Negative [facility] Urine leukocyte esterase det ection by automated test stripOrdered By: Art Bianchi on 10-31-2022 Leukocyte esterase Auto test strip Ql (U) 2+ Negative [facility] Urobilinogen Auto test strip (U) [Mass/Vol]Ordered By: Art Bianchi on 10-31-2022 Urobilinogen (U) [Mass/Vol] Normal mg/dL Normal [facility] WBC Auto (Bld) [#/Vol]Ordere d By: Art Bianchi on 10-31-2022 WBC (Bld) [#/Vol] 14.0 10*3/uL 4.5-13.5 [facility] pH Auto test strip (U)Ordere d By: Art Bianchi on 10-31-2022 pH (U) 6.5 [pH] 5.0-9.0 [facility] Basophils Auto (Bld) [#/Vol] Ordered By: Ravi Arguello on 10-29-2022 Basophils (Bld) [#/Vol] 0.0 10*3/uL 0.0-0.1 [facility] Basophils/100 WBC Auto (Bld) Ordered By: Ravi Arguello on 10-29-2022 Basophils/100 WBC (Bld) 0.3 % . [facility] Body fluid albumin measureme nt (mass/volume)Ordered By: Ravi Arguello on 10-29-2022 Albumin (Body fld) [Mass/Vol] 5.2 g/dL 3.2-5.5 [facility] Creatinine and Glomerular fi ltration rate.predicted panel (S/P/Bld)Ordered By: Ravi Arguello on 10-29-2022 Creatinine [Mass/Vol] 0.85 mg/dL 0.44-1.03 [facility] Direct bilirubin measurement Ordered By: Ravi Arguello on 10-29-2022 Bilirubin.direct [Mass/Vol] 0.1 mg/dL 0.0-0.4 [facility] Eosinophils Auto (Bld) [#/Vo l]Ordered By: Ravi Arguello on 10-29-2022 Eosinophils (Bld) [#/Vol] 0.0 10*3/uL 0.0-0.7 [facility] Eosinophils/100 WBC Auto (Bl d)Ordered By: Ravi Arguello on 10-29-2022 Eosinophils/100 WBC (Bld) 0.1 % . [facility] Erythrocyte distribution wid th Auto (RBC) [Ratio]Ordered By: Ravi Arguello on 10-29-2022 Erythrocyte distribution width (RBC) [Ratio] 14.4 % 11.9-15.3 [facility] Estimated glomerular filtrat ion rate (GFR) non- AmericanOrdered By: Ravi Arguello on 10-29-2022 GFR/1.73 sq M.predicted among non-blacks MDRD (S/P/Bld) [Vol rate/Area] > 60 mL/Min [facility] Globulin Calc (S) [Mass/Vol] Ordered By: Ravi Arguello on 10-29-2022 Globulin (S) [Mass/Vol] 3.7 g/dL [facility] Hematocrit Auto (Bld) [Volum e fraction]Ordered By: Ravi Arguello on 10-29-2022 Hematocrit (Bld) [Volume fraction] 42.9 % 36.0-46.0 [facility] Hemoglobin [Mass/volume] in BloodOrdered By: Ravi Arguello on 10-29-2022 Hemoglobin (Bld) [Mass/Vol] 14.3 g/dL 12.0-16.0 [facility] Laboratory - Chemistry and C hemistry - challengeOrdered By: Ravi Arguello on 10-29-2022 Lipase [Catalytic activity/Vol] 25.0 U/L 22-51 [facility] Leukocytes [#/volume] correc venkata for nucleated erythrocytes in Blood by Automated counOrdered By: Ravi Arguello on 10-29-2022 WBC corrected for nucl RBC Auto (Bld) [#/Vol] 13.7 10*3/uL 4.5-13.5 [facility] Lymphocytes Auto (Bld) [#/Vo l]Ordered By: Ravi Arguello on 10-29-2022 Lymphocytes (Bld) [#/Vol] 1.7 10*3/uL 1.20-4.8 [facility] Lymphocytes/100 WBC Auto (Bl d)Ordered By: Ravi Arguello on 10-29-2022 Lymphocytes/100 WBC (Bld) 12.4 % . [facility] MCH Auto (RBC) [Entitic mass ]Ordered By: Ravi Arguello on 10-29-2022 MCH (RBC) [Entitic mass] 28.4 pg 25.0-35.0 [facility] MCHC Auto (RBC) [Mass/Vol]Or dered By: Ravi Arguello on 10-29-2022 MCHC (RBC) [Mass/Vol] 33.3 g/dL 31.0-37.0 [facility] MCV Auto (RBC) [Entitic vol] Ordered By: Ravi Arguello on 10-29-2022 MCV (RBC) [Entitic vol] 85.1 fL 78-102 [facility] Monocyte distribution width [Entitic volume] in Blood by AutomatedOrdered By: Ravi Arguello on 10-29-2022 Monocyte distribution width Auto (Bld) [Entitic vol] 16.57 % 0.00-20.00 [facility] Monocytes Auto (Bld) [#/Vol] Ordered By: Ravi Arguello on 10-29-2022 Monocytes (Bld) [#/Vol] 0.9 10*3/uL 0.1-1.00 [facility] Monocytes/100 WBC Auto (Bld) Ordered By: Ravi Arguello on 10-29-2022 Monocytes/100 WBC (Bld) 6.8 % . [facility] Neutrophils Auto (Bld) [#/Vo l]Ordered By: Ravi Arguello on 10-29-2022 Neutrophils (Bld) [#/Vol] 11.0 10*3/uL 1.2-7.7 [facility] Neutrophils/100 WBC Auto (Bl d)Ordered By: Ravi Arguello on 10-29-2022 Neutrophils/100 WBC (Bld) 80.4 % . [facility] No Panel InformationOrdered By: Ravi Arguello on 10-29-2022 Estimated GFR () > 60 mL/Min [facility] Comment on above: GFR estimated refere nce range: According to KDOQI guidelines, <60 ml/min/1.73m2 is sufficient to diagnose a patient with chronic kidney disease. Pharmacy Creatinine Clearance (Chem 105.83 [facility] > 60 mL/Min [facility] 25.0 U/L 22-51 [facility] 105.83 [facility] Nucleated erythrocytes [Pres ence] in Blood by Automated countOrdered By: Ravi Arguello on 10-29-2022 Nucleated RBC Auto Ql (Bld) 0.0 /100{WBC} 0-0.5 [facility] Platelet mean volume Auto (B ld) [Entitic vol]Ordered By: Rvai Arguello on 10-29-2022 Platelet mean volume (Bld) [Entitic vol] 8.4 fL 6.3-10.7 [facility] Platelets Auto (Bld) [#/Vol] Ordered By: Ravi Arguello on 10-29-2022 Platelets (Bld) [#/Vol] 355 10*3/uL 150-450 [facility] Protein [Mass/volume] in Ser um or PlasmaOrdered By: Ravi Arguello on 10-29-2022 Protein [Mass/Vol] 8.9 g/dL 6.1-7.9 [facility] RBC Auto (Bld) [#/Vol]Ordere d By: Ravi Arguello on 10-29-2022 RBC (Bld) [#/Vol] 5.04 10*6/uL 4.10-5.10 [facility] Serum or plasma alanine florez otransferase measurement without P-5'-P (enzymatic activiOrdered By: Ravi Arguello on 10-29-2022 ALT No additional P-5'-P [Catalytic activity/Vol] 24 U/L 10-60 [facility] Serum or plasma albumin/glob ulin mass ratioOrdered By: Ravi Arguello on 10-29-2022 Albumin/Globulin [Mass ratio] 1.4 {ratio} [facility] Serum or plasma alkaline justin sphatase measurement (enzymatic activity/volume)Ordered By: Ravi Arguello on 10-29-2022 ALP [Catalytic activity/Vol] 68 U/L 32-92 [facility] Serum or plasma anion gap de terminationOrdered By: Ravi Arguello on 10-29-2022 Anion gap [Moles/Vol] 19.9 mmol/L 6.0-15.0 [facility] Serum or plasma aspartate am inotransferase measurement (enzymatic activity/volume)Ordered By: Ravi Arguello on 10-29-2022 AST [Catalytic activity/Vol] 20 U/L 10-42 [facility] Serum or plasma calcium tammy urement (mass/volume)Ordered By: Ravi Arguello on 10-29-2022 Calcium [Mass/Vol] 10.4 mg/dL 8.2-10.2 [facility] Serum or plasma chloride judy surement (moles/volume)Ordered By: Ravi Arguello on 10-29-2022 Chloride [Moles/Vol] 100 mmol/L 95-114 [facility] Serum or plasma creatinine m easurement with calculation of estimated glomerular filtrOrdered By: Ravi Arguello on 10-29-2022 Creatinine and Glomerular filtration rate.predicted panel (S/P/Bld) 0.85 mg/dL 0.44-1.03 [facility] Serum or plasma glucose tammy urement (mass/volume)Ordered By: Ravi Arguello on 10-29-2022 Glucose [Mass/Vol] 114 mg/dL 70-100 [facility] Comment on above: ADA recommended refe rence rangeRandom Glucose Reference Range is dependent on time and content of last meal. Glucose of more than 200 mg/dL in a nonstressed, ambulatory subject supports the diagnosis of Diabetes Mellitus. Serum or plasma non-glucuron idated bilirubin measurement (mass/volume)Ordered By: Ravi Arguello on 10-29-2022 Bilirubin.indirect [Mass/Vol] 1.1 mg/dL [facility] Serum or plasma potassium me asurement (moles/volume)Ordered By: Ravi Arguello on 10-29-2022 Potassium [Moles/Vol] 3.3 mmol/L 3.5-5.1 [facility] Serum or plasma sodium measu rement (moles/volume)Ordered By: Ravi Arguello on 10-29-2022 Sodium [Moles/Vol] 137 mmol/L 136-146 [facility] Serum or plasma total biliru bin measurement (mass/volume)Ordered By: Ravi Arguello on 10-29-2022 Bilirubin [Mass/Vol] 1.2 mg/dL 0.3-1.2 [facility] Serum or plasma total carbon dioxide measurement (moles/volume)Ordered By: Ravi Arguello on 10-29-2022 CO2 [Moles/Vol] 20.4 mmol/L 22.0-30.0 [facility] Serum or plasma urea nitroge n measurement (mass/volume)Ordered By: Ravi Arguello on 10-29-2022 Urea nitrogen [Mass/Vol] 21 mg/dL 9-23 [facility] WBC Auto (Bld) [#/Vol]Ordere d By: Ravi Arguello on 10-29-2022 WBC (Bld) [#/Vol] 13.7 10*3/uL 4.5-13.5 [facility] Basophils Auto (Bld) [#/Vol] Ordered By: Modesta Chand on 08-27-2022 Basophils (Bld) [#/Vol] 0.0 10*3/uL 0.0-0.1 [facility] Basophils/100 WBC Auto (Bld) Ordered By: Modesta Chand on 08-27-2022 Basophils/100 WBC (Bld) 0.3 % . [facility] Body fluid albumin measureme nt (mass/volume)Ordered By: Modesta Chand on 08-27-2022 Albumin (Body fld) [Mass/Vol] 4.7 g/dL 3.2-5.5 [facility] Creatinine and Glomerular fi ltration rate.predicted panel (S/P/Bld)Ordered By: Modesta Chand on 08-27-2022 Creatinine [Mass/Vol] 0.90 mg/dL 0.44-1.03 [facility] Eosinophils Auto (Bld) [#/Vo l]Ordered By: Modesta Chand on 08-27-2022 Eosinophils (Bld) [#/Vol] 0.3 10*3/uL 0.0-0.7 [facility] Eosinophils/100 WBC Auto (Bl d)Ordered By: Modesta Chand on 08-27-2022 Eosinophils/100 WBC (Bld) 2.2 % . [facility] Erythrocyte distribution wid th Auto (RBC) [Ratio]Ordered By: Modesta Chand on 08-27-2022 Erythrocyte distribution width (RBC) [Ratio] 14.0 % 11.9-15.3 [facility] Estimated glomerular filtrat ion rate (GFR) non- AmericanOrdered By: Modesta Chand on 08-27-2022 GFR/1.73 sq M.predicted among non-blacks MDRD (S/P/Bld) [Vol rate/Area] > 60 mL/Min [facility] Globulin Calc (S) [Mass/Vol] Ordered By: Modesta Chand on 08-27-2022 Globulin (S) [Mass/Vol] 2.5 g/dL [facility] Hematocrit Auto (Bld) [Volum e fraction]Ordered By: Modesta Chand on 08-27-2022 Hematocrit (Bld) [Volume fraction] 46.5 % 36.0-46.0 [facility] Hemoglobin [Mass/volume] in BloodOrdered By: Modesta Chand on 08-27-2022 Hemoglobin (Bld) [Mass/Vol] 15.6 g/dL 12.0-16.0 [facility] Laboratory - Chemistry and C hemistry - challengeOrdered By: Modesta Chand on 08-27-2022 Lipase [Catalytic activity/Vol] 27.0 U/L 22-51 [facility] Laboratory - Hematology and Cell countsOrdered By: Modesta Chand on 08-27-2022 Nucleated RBC/100 WBC (Bld) [Ratio] 0.1 % 0-0.5 [facility] Leukocytes [#/volume] in Blo od by Automated countOrdered By: Modesta Chand on 08-27-2022 WBC (Bld) [#/Vol] 13.4 10*3/uL 4.5-13.5 [facility] Lymphocytes Auto (Bld) [#/Vo l]Ordered By: Modesta Chand on 08-27-2022 Lymphocytes (Bld) [#/Vol] 3.1 10*3/uL 1.20-4.8 [facility] Lymphocytes/100 WBC Auto (Bl d)Ordered By: Modesta Chand on 08-27-2022 Lymphocytes/100 WBC (Bld) 22.9 % . [facility] MCH Auto (RBC) [Entitic mass ]Ordered By: Modesta Chand on 08-27-2022 MCH (RBC) [Entitic mass] 28.4 pg 25.0-35.0 [facility] MCHC Auto (RBC) [Mass/Vol]Or dered By: Modesta Chand on 08-27-2022 MCHC (RBC) [Mass/Vol] 33.5 g/dL 31.0-37.0 [facility] MCV Auto (RBC) [Entitic vol] Ordered By: Modesta Chand on 08-27-2022 MCV (RBC) [Entitic vol] 84.8 fL 78-102 [facility] Monocytes Auto (Bld) [#/Vol] Ordered By: Modesta Chand on 08-27-2022 Monocytes (Bld) [#/Vol] 1.2 10*3/uL 0.1-1.00 [facility] Monocytes/100 WBC Auto (Bld) Ordered By: Modesta Chand on 08-27-2022 Monocytes/100 WBC (Bld) 9.1 % . [facility] Neutrophils Auto (Bld) [#/Vo l]Ordered By: Modesta Chand on 08-27-2022 Neutrophils (Bld) [#/Vol] 8.8 10*3/uL 1.2-7.7 [facility] Neutrophils/100 WBC Auto (Bl d)Ordered By: Modesta Chand on 08-27-2022 Neutrophils/100 WBC (Bld) 65.5 % . [facility] No Panel InformationOrdered By: Modesta Chand on 08-27-2022 Estimated GFR () > 60 mL/Min [facility] Comment on above: GFR estimated refere nce range: According to KDOQI guidelines, <60 ml/min/1.73m2 is sufficient to diagnose a patient with chronic kidney disease. Pharmacy Creatinine Clearance (Chem N/A [facility] 13.4 10*3/uL 4.5-13.5 [facility] 0.1 % 0-0.5 [facility] > 60 mL/Min [facility] 27.0 U/L 22-51 [facility] N/A [facility] Platelet mean volume Auto (B ld) [Entitic vol]Ordered By: Modesta Chand on 08-27-2022 Platelet mean volume (Bld) [Entitic vol] 8.9 fL 6.3-10.7 [facility] Platelets Auto (Bld) [#/Vol] Ordered By: Modesta Chand on 08-27-2022 Platelets (Bld) [#/Vol] 373 10*3/uL 150-450 [facility] Protein [Mass/volume] in Ser um or PlasmaOrdered By: Modesta Chand on 08-27-2022 Protein [Mass/Vol] 7.2 g/dL 6.1-7.9 [facility] RBC Auto (Bld) [#/Vol]Ordere d By: Modesta Chand on 08-27-2022 RBC (Bld) [#/Vol] 5.49 10*6/uL 4.10-5.10 [facility] Serum or plasma alanine florez otransferase measurement without P-5'-P (enzymatic activiOrdered By: Modesta Chand on 08-27-2022 ALT No additional P-5'-P [Catalytic activity/Vol] 20 U/L 10-60 [facility] Serum or plasma albumin/glob ulin mass ratioOrdered By: Modesta Chand on 08-27-2022 Albumin/Globulin [Mass ratio] 1.9 {ratio} [facility] Serum or plasma alkaline justin sphatase measurement (enzymatic activity/volume)Ordered By: Modesta Chand on 08-27-2022 ALP [Catalytic activity/Vol] 63 U/L 32-92 [facility] Serum or plasma amylase tammy urement (enzymatic activity/volume)Ordered By: Modesta Chand on 08-27-2022 Amylase [Catalytic activity/Vol] 25 U/L 28-100 [facility] Serum or plasma anion gap de terminationOrdered By: Modesta Chand on 08-27-2022 Anion gap [Moles/Vol] 22.5 mmol/L 6.0-15.0 [facility] Serum or plasma aspartate am inotransferase measurement (enzymatic activity/volume)Ordered By: Modesta Chand on 08-27-2022 AST [Catalytic activity/Vol] 18 U/L 10-42 [facility] Serum or plasma calcium tammy urement (mass/volume)Ordered By: Modesta Chand on 08-27-2022 Calcium [Mass/Vol] 10.1 mg/dL 8.2-10.2 [facility] Serum or plasma chloride judy surement (moles/volume)Ordered By: Modesta Chand on 08-27-2022 Chloride [Moles/Vol] 89 mmol/L 95-114 [facility] Serum or plasma creatinine m easurement with calculation of estimated glomerular filtrOrdered By: Modesta Chand on 08-27-2022 Creatinine and Glomerular filtration rate.predicted panel (S/P/Bld) 0.90 mg/dL 0.44-1.03 [facility] Serum or plasma glucose tammy urement (mass/volume)Ordered By: Modesta Chand on 08-27-2022 Glucose [Mass/Vol] 76 mg/dL 70-100 [facility] Comment on above: ADA recommended refe rence rangeRandom Glucose Reference Range is dependent on time and content of last meal. Glucose of more than 200 mg/dL in a nonstressed, ambulatory subject supports the diagnosis of Diabetes Mellitus. Serum or plasma potassium me asurement (moles/volume)Ordered By: Modesta Chand on 08-27-2022 Potassium [Moles/Vol] 3.7 mmol/L 3.5-5.1 [facility] Serum or plasma sodium measu rement (moles/volume)Ordered By: Modesta Chand on 08-27-2022 Sodium [Moles/Vol] 131 mmol/L 136-146 [facility] Serum or plasma total biliru bin measurement (mass/volume)Ordered By: Modesta Chand on 08-27-2022 Bilirubin [Mass/Vol] 1.6 mg/dL 0.3-1.2 [facility] Comment on above: Samples from patient s who have taken Naproxen have shown spurious elevation in Total Bilirubin levels. A metabolite of Naproxen, O-desmethylnaproxen, has been shown to interfere with the Solomon method for measuring Total Bilirubin. Serum or plasma total carbon dioxide measurement (moles/volume)Ordered By: Modesta Chand on 08-27-2022 CO2 [Moles/Vol] 23.2 mmol/L 22.0-30.0 [facility] Serum or plasma urea nitroge n measurement (mass/volume)Ordered By: Modesta Chand on 08-27-2022 Urea nitrogen [Mass/Vol] 15 mg/dL 08-20 [facility] Basophils Auto (Bld) [#/Vol] Ordered By: Gregorio Carey on 08-22-2022 Basophils (Bld) [#/Vol] 0.0 10*3/uL 0.0-0.1 [facility] Basophils/100 WBC Auto (Bld) Ordered By: Gregorio Carey on 08-22-2022 Basophils/100 WBC (Bld) 0.3 % . [facility] Blood hemoglobin measurement (mass/volume)Ordered By: Gregorio Carey on 08-22-2022 Hemoglobin (Bld) [Mass/Vol] 13.1 g/dL 12.0-16.0 [facility] Blood leukocytes automated c ount (number/volume)Ordered By: Gregorio Carey on 08-22-2022 WBC (Bld) [#/Vol] 9.7 10*3/uL 4.5-13.5 [facility] Creatinine and Glomerular fi ltration rate.predicted panel (S/P/Bld)Ordered By: Gregorio Carey on 08-22-2022 Creatinine [Mass/Vol] 0.75 mg/dL 0.44-1.03 [facility] Eosinophils Auto (Bld) [#/Vo l]Ordered By: Gregorio Carey on 08-22-2022 Eosinophils (Bld) [#/Vol] 0.1 10*3/uL 0.0-0.7 [facility] Eosinophils/100 WBC Auto (Bl d)Ordered By: Gregorio Carey on 08-22-2022 Eosinophils/100 WBC (Bld) 1.0 % . [facility] Erythrocyte distribution wid th Auto (RBC) [Ratio]Ordered By: Gregorio Carey on 08-22-2022 Erythrocyte distribution width (RBC) [Ratio] 14.1 % 11.9-15.3 [facility] Estimated glomerular filtrat ion rate (GFR) non- AmericanOrdered By: Gregorio Carey on 08-22-2022 GFR/1.73 sq M.predicted among non-blacks MDRD (S/P/Bld) [Vol rate/Area] > 60 mL/Min [facility] Hematocrit Auto (Bld) [Volum e fraction]Ordered By: Gregorio Carey on 08-22-2022 Hematocrit (Bld) [Volume fraction] 39.6 % 36.0-46.0 [facility] Laboratory - Hematology and Cell countsOrdered By: Gregorio Carey on 08-22-2022 Nucleated RBC/100 WBC (Bld) [Ratio] 0.0 % 0-0.5 [facility] Lymphocytes Auto (Bld) [#/Vo l]Ordered By: Gregorio Carey on 08-22-2022 Lymphocytes (Bld) [#/Vol] 2.0 10*3/uL 1.20-4.8 [facility] Lymphocytes/100 WBC Auto (Bl d)Ordered By: Gregorio Carey on 08-22-2022 Lymphocytes/100 WBC (Bld) 20.5 % . [facility] MCH Auto (RBC) [Entitic mass ]Ordered By: Gregorio Carey on 08-22-2022 MCH (RBC) [Entitic mass] 28.0 pg 25.0-35.0 [facility] MCHC Auto (RBC) [Mass/Vol]Or dered By: Gregorio Carey on 08-22-2022 MCHC (RBC) [Mass/Vol] 33.2 g/dL 31.0-37.0 [facility] MCV Auto (RBC) [Entitic vol] Ordered By: Gregorio Carey on 08-22-2022 MCV (RBC) [Entitic vol] 84.5 fL 78-102 [facility] Monocytes Auto (Bld) [#/Vol] Ordered By: Gregorio Carey on 08-22-2022 Monocytes (Bld) [#/Vol] 0.8 10*3/uL 0.1-1.00 [facility] Monocytes/100 WBC Auto (Bld) Ordered By: Gregorio Carey on 08-22-2022 Monocytes/100 WBC (Bld) 8.0 % . [facility] Neutrophils Auto (Bld) [#/Vo l]Ordered By: Gregorio Carey on 08-22-2022 Neutrophils (Bld) [#/Vol] 6.8 10*3/uL 1.2-7.7 [facility] Neutrophils/100 WBC Auto (Bl d)Ordered By: Gregorio Carey on 08-22-2022 Neutrophils/100 WBC (Bld) 70.2 % . [facility] No Panel InformationOrdered By: Gregorio Carey on 08-22-2022 Estimated GFR () > 60 mL/Min [facility] Comment on above: GFR estimated refere nce range: According to KDOQI guidelines, <60 ml/min/1.73m2 is sufficient to diagnose a patient with chronic kidney disease. Pharmacy Creatinine Clearance (Chem 117.26 [facility] 9.7 10*3/uL 4.5-13.5 [facility] 0.0 % 0-0.5 [facility] > 60 mL/Min [facility] 117.26 [facility] Platelet mean volume Auto (B ld) [Entitic vol]Ordered By: Gregorio Carey on 08-22-2022 Platelet mean volume (Bld) [Entitic vol] 8.6 fL 6.3-10.7 [facility] Platelets Auto (Bld) [#/Vol] Ordered By: Gregorio Carey on 08-22-2022 Platelets (Bld) [#/Vol] 246 10*3/uL 150-450 [facility] RBC Auto (Bld) [#/Vol]Ordere d By: Gregorio Carey on 08-22-2022 RBC (Bld) [#/Vol] 4.69 10*6/uL 4.10-5.10 [facility] Serum nuclear antibody titer Ordered By: Gregorio Carey on 08-22-2022 Nuclear Ab (S) [Titer] Negative . [facility] Comment on above: Negative <1:80 Borde rline 1:80 Positive >1:80ICAP nomenclature: [id number]-0For more information about Hep-2 cell patterns useANApatterns.org, the official website for theInternational Consensus on Antinuclear Antibody (EDMOND)Patterns (ICAP).Performed at: [address] [id number] Director: James Nelson PhD, Phone: [phone] Serum or plasma anion gap de terminationOrdered By: Gregorio Carey on 08-22-2022 Anion gap [Moles/Vol] 17.0 mmol/L 6.0-15.0 [facility] Serum or plasma beta choriog onadotropin measurement [...] on 08-22-2022 Calcium [Mass/Vol] 9.4 mg/dL 8.2-10.2 [facility] Serum or plasma chloride judy surement (moles/volume)Ordered By: Gregorio Carey on 08-22-2022 Chloride [Moles/Vol] 99 mmol/L 95-114 [facility] Serum or plasma creatinine m easurement with calculation of estimated glomerular filtrOrdered By: Gregorio Carey on 08-22-2022 Creatinine and Glomerular filtration rate.predicted panel (S/P/Bld) 0.75 mg/dL 0.44-1.03 [facility] Serum or plasma glucose tammy urement (mass/volume)Ordered By: Gregorio Carey on 08-22-2022 Glucose [Mass/Vol] 90 mg/dL 70-100 [facility] Comment on above: ADA recommended refe [...] on 08-22-2022 Potassium [Moles/Vol] 3.8 mmol/L 3.5-5.1 [facility] Serum or plasma sodium measu rement (moles/volume)Ordered By: Gregorio Carey on 08-22-2022 Sodium [Moles/Vol] 134 mmol/L 136-146 [facility] Serum or plasma total carbon dioxide measurement (moles/volume)Ordered By: Gregorio Carey on 08-22-2022 CO2 [Moles/Vol] 21.8 mmol/L 22.0-30.0 [facility] Serum or plasma urea nitroge n measurement (mass/volume)Ordered By: Gregorio Carey on 08-22-2022 Urea nitrogen [Mass/Vol] 7 mg/dL 08-20 [facility] Urine culture routineOrdered By: Gregorio Carey on 08-22-2022 Bacteria identified Cx Nom (U) 2 Days [facility] Urine culture routineOrdered By: Gilson Castro on 08-22-2022 Bacteria identified Cx Nom (U) 2 Days [facility] Urine culture routineOrdered By: Colten Fry on 08-21-2022 Bacteria identified Cx Nom (U) 2 Days [facility] Amphetamine Screen Ql (U)Ord ered By: Gilson Castro on 08-20-2022 Amphetamines Ql (U) Negative Negative [facility] Automated erythrocytes count in urine sediment (number/area)Ordered By: Gilson Castro on 08-20-2022 RBC Auto (Urine sed) [#/Area] None seen [HPF] 0-4 [facility] Automated leukocytes count i n urine sediment (number/area)Ordered By: Gilson Castro on 08-20-2022 WBC Auto (Urine sed) [#/Area] 1-2 [HPF] 0-4 [facility] Barbiturates [Presence] in U rineOrdered By: Gilson Castro on 08-20-2022 Barbiturates Ql (U) Positive Negative [facility] Basophils Auto (Bld) [#/Vol] Ordered By: Gilson Castro on 08-20-2022 Basophils (Bld) [#/Vol] 0.0 10*3/uL 0.0-0.1 [facility] Basophils/100 WBC Auto (Bld) Ordered By: Gilson Castro on 08-20-2022 Basophils/100 WBC (Bld) 0.4 % . [facility] Benzodiazepines [Presence] i n UrineOrdered By: Gilson Castro on 08-20-2022 Benzodiazepines Ql (U) Negative Negative [facility] Bilirubin Test strip Ql (U)O rdered By: Gilson Castro on 08-20-2022 Bilirubin Ql (U) Negative Negative [facility] Blood anisocytosis detection Ordered By: Gilson Castro on 08-20-2022 Anisocytosis Ql (Bld) Slight Fir [facility] Blood hemoglobin measurement (mass/volume)Ordered By: Gilson Castro on 08-20-2022 Hemoglobin (Bld) [Mass/Vol] 12.1 g/dL 12.0-16.0 [facility] Blood leukocytes automated c ount (number/volume)Ordered By: Gilson Castro on 08-20-2022 WBC (Bld) [#/Vol] 10.9 10*3/uL 4.5-13.5 [facility] COVID-19 Positive/NegativeOr dered By: Ravi Arguello on 08-20-2022 SARS-CoV-2 (COVID-19) N gene JANAK+probe Ql (Resp) Negative Negative [facility] Comment on above: Testing for SARS-CoV -2 by RT-PCR This test was developed and its performance characteristics determined by [employer] ([employer]) and validated at the [facility]. This test has not been FDA [...] and its performance characteristics determined by [employer] ([employer]) and validated at the [facility]. This test has not been FDA [...] (COVID-19) Ag IA.rapid Ql (Resp) Negative Negative [facility] Comment on above: This is a duplicate [employer]ia SARS Antigen (JOSE A) result to be used for statistical tracking purpose only. Cannabinoids [Presence] in U rine by Screen methodOrdered By: Gilson Castro on 08-20-2022 Cannabinoids Screen Ql (U) Positive Negative [facility] Comment on above: These are unconfirme [...] Castro on 08-20-2022 Color (U) Yellow Yellow [facility] Creatinine and Glomerular fi ltration rate.predicted panel (S/P/Bld)Ordered By: Gilson Castro on 08-20-2022 Creatinine [Mass/Vol] 0.65 mg/dL 0.44-1.03 [facility] Eosinophils Auto (Bld) [#/Vo l]Ordered By: Gilson Castro on 08-20-2022 Eosinophils (Bld) [#/Vol] 0.0 10*3/uL 0.0-0.7 [facility] Eosinophils/100 WBC Auto (Bl d)Ordered By: Gilson Castro on 08-20-2022 Eosinophils/100 WBC (Bld) 0.3 % . [facility] Erythrocyte distribution wid th Auto (RBC) [Ratio]Ordered By: Gilson Castro on 08-20-2022 Erythrocyte distribution width (RBC) [Ratio] 13.9 % 11.9-15.3 [facility] Estimated glomerular filtrat ion rate (GFR) non- AmericanOrdered By: Gilson Castro on 08-20-2022 GFR/1.73 sq M.predicted among non-blacks MDRD (S/P/Bld) [Vol rate/Area] > 60 mL/Min [facility] Hematocrit Auto (Bld) [Volum e fraction]Ordered By: Gilson Castro on 08-20-2022 Hematocrit (Bld) [Volume fraction] 36.8 % 36.0-46.0 [facility] Ketones Auto test strip (U) [Mass/Vol]Ordered By: Gilson Castro on 08-20-2022 Ketones (U) [Mass/Vol] 2+ Negative [facility] - Chemistry and C hemistry - challengeOrdered By: Gilson Castro on 08-20-2022 Magnesium [Mass/Vol] 1.9 mg/dL 1.6-2.6 [facility] Laboratory - Drug toxicology Ordered By: Gilson Castro on 08-20-2022 Opiates Ql (U) Negative Negative [facility] Laboratory - Hematology and Cell countsOrdered By: Gilson Castro on 08-20-2022 Nucleated RBC/100 WBC (Bld) [Ratio] 0.0 % 0-0.5 [facility] Laboratory - UrinalysisOrder ed By: Gilson Castro on 08-20-2022 Hyaline casts LM Ql (Urine sed) None seen [LPF] 0-8 [facility] Lymphocytes Auto (Bld) [#/Vo l]Ordered By: Gilson Castro on 08-20-2022 Lymphocytes (Bld) [#/Vol] 1.3 10*3/uL 1.20-4.8 [facility] Lymphocytes/100 WBC Auto (Bl d)Ordered By: Gilson Castro on 08-20-2022 Lymphocytes/100 WBC (Bld) 11.5 % . [facility] MCH Auto (RBC) [Entitic mass ]Ordered By: Gilson Castro on 08-20-2022 MCH (RBC) [Entitic mass] 28.1 pg 25.0-35.0 [facility] MCHC Auto (RBC) [Mass/Vol]Or dered By: Gilson Castro on 08-20-2022 MCHC (RBC) [Mass/Vol] 32.9 g/dL 31.0-37.0 [facility] MCV Auto (RBC) [Entitic vol] Ordered By: Gilson Castro on 08-20-2022 MCV (RBC) [Entitic vol] 85.5 fL 78-102 [facility] Monocytes Auto (Bld) [#/Vol] Ordered By: Gilson Castro on 08-20-2022 Monocytes (Bld) [#/Vol] 0.4 10*3/uL 0.1-1.00 [facility] Monocytes/100 WBC Auto (Bld) Ordered By: Gilson Castro on 08-20-2022 Monocytes/100 WBC (Bld) 3.7 % . [facility] Neutrophils Auto (Bld) [#/Vo l]Ordered By: Gilson Castro on 08-20-2022 Neutrophils (Bld) [#/Vol] 9.2 10*3/uL 1.2-7.7 [facility] Neutrophils/100 WBC Auto (Bl d)Ordered By: Gilson Castro on 08-20-2022 Neutrophils/100 WBC (Bld) 84.1 % . [facility] Nitrite Test strip Ql (U)Ord ered By: Gilson Castro on 08-20-2022 Nitrite Ql (U) Negative Negative [facility] No Panel InformationOrdered By: Gilson Castro on 08-20-2022 None seen [LPF] 0-8 [facility] Negative Negative [facility] Estimated GFR () > 60 mL/Min [facility] Comment on above: GFR estimated refere nce range: According to KDOQI guidelines, <60 ml/min/1.73m2 is sufficient to diagnose a patient with chronic kidney disease. Pharmacy Creatinine Clearance (Chem 136.96 [facility] Platelet Estimate Normal Normal [facility] Platelet Morphology Comment Normal Normal [facility] Normal Normal [facility] 1.9 mg/dL 1.6-2.6 [facility] No Panel InformationOrdered By: Ravi Arguello on 08-20-2022 SARS Antigen (LFIA) [facility] Phencyclidine Screen Ql (U)O rdered By: Gilson Castro on 08-20-2022 Phencyclidine Ql (U) Negative Negative [facility] Platelet mean volume Auto (B ld) [Entitic vol]Ordered By: Gilson Castro on 08-20-2022 Platelet mean volume (Bld) [Entitic vol] 8.6 fL 6.3-10.7 [facility] Platelets Auto (Bld) [#/Vol] Ordered By: Gilson Castro on 08-20-2022 Platelets (Bld) [#/Vol] 145 10*3/uL 150-450 [facility] Comment on above: Delta: 314 on Protein Auto test strip (U) [Mass/Vol]Ordered By: Gilson Castro on 08-20-2022 Protein (U) [Mass/Vol] Negative Negative [facility] RBC Auto (Bld) [#/Vol]Ordere d By: Gilson Castro on 08-20-2022 RBC (Bld) [#/Vol] 4.31 10*6/uL 4.10-5.10 [facility] RBC morphologyOrdered By: Pierce Castro on 08-20-2022 RBC morphology finding Nom (Bld) N/A [facility] Serum or plasma anion gap de terminationOrdered By: Gilson Castro on 08-20-2022 Anion gap [Moles/Vol] 15.2 mmol/L 6.0-15.0 [facility] Serum or plasma calcium tammy urement (mass/volume)Ordered By: Gilson Castro on 08-20-2022 Calcium [Mass/Vol] 8.6 mg/dL 8.2-10.2 [facility] Serum or plasma chloride judy surement (moles/volume)Ordered By: Gilson Castro on 08-20-2022 Chloride [Moles/Vol] 101 mmol/L 95-114 [facility] Serum or plasma glucose tammy urement (mass/volume)Ordered By: Gilson Castro on 08-20-2022 Glucose [Mass/Vol] 96 mg/dL 70-100 [facility] Comment on above: ADA recommended refe rence range Random Glucose Reference Range is dependent on time and content of last meal. Glucose of more than 200 mg/dL in a nonstressed, ambulatory subject supports the diagnosis of Diabetes Mellitus. Serum or plasma potassium me asurement (moles/volume)Ordered By: Gilson Castro on 08-20-2022 Potassium [Moles/Vol] 3.1 mmol/L 3.5-5.1 [facility] Serum or plasma sodium measu rement (moles/volume)Ordered By: Gilson Castro on 08-20-2022 Sodium [Moles/Vol] 135 mmol/L 136-146 [facility] Serum or plasma total carbon dioxide measurement (moles/volume)Ordered By: Gilson Castro on 08-20-2022 CO2 [Moles/Vol] 21.9 mmol/L 22.0-30.0 [facility] Serum or plasma urea nitroge n measurement (mass/volume)Ordered By: Gilson Castro on 08-20-2022 Urea nitrogen [Mass/Vol] 11 mg/dL 08-20 [facility] Specific gravity Auto test s trip (U) [Rel density]Ordered By: Gilson Castro on 08-20-2022 Specific gravity (U) [Rel density] 1.008 1.001-1.03 0 [facility] Squamous epithelial cells de tection in urine sediment by light microscopyOrdered By: Gilson Castro on 08-20-2022 Epithelial cells.squamous LM Ql (Urine sed) 1-2 [HPF] 0-2 [facility] Urine bacteria detection by automated methodOrdered By: Gilson Castro on 08-20-2022 Bacteria Auto Ql (U) None seen None Seen [facility] Urine clarity by refractomet ry automatedOrdered By: Gilson Castro on 08-20-2022 Clarity Refractometry automated (U) Clear Clear [facility] Urine cocaine detectionOrder ed By: Gilson Castro on 08-20-2022 Cocaine Ql (U) Negative Negative [facility] Urine glucose measurement by automated test strip (mass/volume)Ordered By: Gilson Castro on 08-20-2022 Glucose Auto test strip (U) [Mass/Vol] Normal mg/dL Normal [facility] Urine hemoglobin detection b y automated test stripOrdered By: Gilson Castro on 08-20-2022 Hemoglobin Auto test strip Ql (U) Negative Negative [facility] Urine leukocyte esterase det ection by automated test stripOrdered By: Gilson Castro on 08-20-2022 Leukocyte esterase Auto test strip Ql (U) 1+ Negative [facility] Urobilinogen Auto test strip (U) [Mass/Vol]Ordered By: Gilson Castro on 08-20-2022 Urobilinogen (U) [Mass/Vol] Normal mg/dL Normal [facility] pH Auto test strip (U)Ordere d By: Gilson Castro on 08-20-2022 pH (U) 7.0 [pH] 5.0-9.0 [facility] Automated erythrocytes count in urine sediment (number/area)Ordered By: Gilson Castro on 08-19-2022 RBC Auto (Urine sed) [#/Area] 3-4 [HPF] 0-4 [facility] Automated erythrocytes count in urine sediment (number/area)Ordered By: Colten Fry on 08-19-2022 RBC Auto (Urine sed) [#/Area] None seen [HPF] 0-4 [facility] Automated leukocytes count i n urine sediment (number/area)Ordered By: Gilson Castro on 08-19-2022 WBC Auto (Urine sed) [#/Area] 20-49 [HPF] 0-4 [facility] Automated leukocytes count i n urine sediment (number/area)Ordered By: Colten Fry on 08-19-2022 WBC Auto (Urine sed) [#/Area] 5-9 [HPF] 0-4 [facility] Automated urine hyaline cast s count (number/volume)Ordered By: Gilson Castro on 08-19-2022 Hyaline casts Auto (U) [#/Vol] None seen [LPF] 0-1 [facility] Basophils Auto (Bld) [#/Vol] Ordered By: Gilson Castro on 08-19-2022 Basophils (Bld) [#/Vol] 0.0 10*3/uL 0.0-0.1 [facility] Basophils Auto (Bld) [#/Vol] Ordered By: Colten Fry on 08-19-2022 Basophils (Bld) [#/Vol] 0.0 10*3/uL 0.0-0.1 [facility] Basophils/100 WBC Auto (Bld) Ordered By: Gilson Castro on 08-19-2022 Basophils/100 WBC (Bld) 0.2 % . [facility] Basophils/100 WBC Auto (Bld) Ordered By: Colten Fry on 08-19-2022 Basophils/100 WBC (Bld) 0.4 % . [facility] Bilirubin Test strip Ql (U)O rdered By: Gilson Castro on 08-19-2022 Bilirubin Ql (U) Negative Negative [facility] Bilirubin Test strip Ql (U)O rdered By: Colten Fry on 08-19-2022 Bilirubin Ql (U) Negative Negative [facility] Blood hemoglobin measurement (mass/volume)Ordered By: Gilson Castro on 08-19-2022 Hemoglobin (Bld) [Mass/Vol] 13.2 g/dL 12.0-16.0 [facility] Blood hemoglobin measurement (mass/volume)Ordered By: Colten Fry on 08-19-2022 Hemoglobin (Bld) [Mass/Vol] 12.8 g/dL 12.0-16.0 [facility] Blood leukocytes automated c ount (number/volume)Ordered By: Gilson Castro on 08-19-2022 WBC (Bld) [#/Vol] 15.5 10*3/uL 4.5-13.5 [facility] Blood leukocytes automated c ount (number/volume)Ordered By: Colten Fry on 08-19-2022 WBC (Bld) [#/Vol] 13.5 10*3/uL 4.5-13.5 [facility] Body fluid albumin measureme nt (mass/volume)Ordered By: Gilson Castro on 08-19-2022 Albumin (Body fld) [Mass/Vol] 4.0 g/dL 3.2-5.5 [facility] Body fluid albumin measureme nt (mass/volume)Ordered By: Colten Fry on 08-19-2022 Albumin (Body fld) [Mass/Vol] 4.5 g/dL 3.2-5.5 [facility] COVID-19 SOFIAOrdered By: Pierce Castro on 08-19-2022 SARS-CoV+SARS-CoV-2 (COVID-19) Ag IA.rapid Ql (Resp) Negative Negative [facility] Comment on above: This is a duplicate [employer] SARS Antigen (JOSE A) result to be used for statistical tracking purpose only. Casts typing in urine sedime nt by light microscopyOrdered By: Gilson Castro on 08-19-2022 Casts LM Nom (Urine sed) None seen [LPF] None Seen [facility] Casts typing in urine sedime nt by light microscopyOrdered By: Colten Fry on 08-19-2022 Casts LM Nom (Urine sed) N/A [facility] Color Auto (U)Ordered By: Pierce Castro on 08-19-2022 Color (U) Yellow Yellow [facility] Color Auto (U)Ordered By: Vida Fry on 08-19-2022 Color (U) Yellow Yellow [facility] Creatinine and Glomerular fi ltration rate.predicted panel (S/P/Bld)Ordered By: Gilson Castro on 08-19-2022 Creatinine [Mass/Vol] 0.73 mg/dL 0.44-1.03 [facility] Creatinine and Glomerular fi ltration rate.predicted panel (S/P/Bld)Ordered By: Colten Fry on 08-19-2022 Creatinine [Mass/Vol] 0.82 mg/dL 0.44-1.03 [facility] Eosinophils Auto (Bld) [#/Vo l]Ordered By: Gilson Castro on 08-19-2022 Eosinophils (Bld) [#/Vol] 0.0 10*3/uL 0.0-0.7 [facility] Eosinophils Auto (Bld) [#/Vo l]Ordered By: Colten Fry on 08-19-2022 Eosinophils (Bld) [#/Vol] 0.0 10*3/uL 0.0-0.7 [facility] Eosinophils/100 WBC Auto (Bl d)Ordered By: Gilson Castro on 08-19-2022 Eosinophils/100 WBC (Bld) 0.2 % . [facility] Eosinophils/100 WBC Auto (Bl d)Ordered By: Colten Fry on 08-19-2022 Eosinophils/100 WBC (Bld) 0.0 % . [facility] Erythrocyte distribution wid th Auto (RBC) [Ratio]Ordered By: Gilson Castro on 08-19-2022 Erythrocyte distribution width (RBC) [Ratio] 14.4 % 11.9-15.3 [facility] Erythrocyte distribution wid th Auto (RBC) [Ratio]Ordered By: Colten Fry on 08-19-2022 Erythrocyte distribution width (RBC) [Ratio] 14.3 % 11.9-15.3 [facility] Estimated glomerular filtrat ion rate (GFR) non- AmericanOrdered By: Gilson Castro on 08-19-2022 GFR/1.73 sq M.predicted among non-blacks MDRD (S/P/Bld) [Vol rate/Area] > 60 mL/Min [facility] Estimated glomerular filtrat ion rate (GFR) non- AmericanOrdered By: Colten Fry on 08-19-2022 GFR/1.73 sq M.predicted among non-blacks MDRD (S/P/Bld) [Vol rate/Area] > 60 mL/Min [facility] Globulin Calc (S) [Mass/Vol] Ordered By: Gilson Castro on 08-19-2022 Globulin (S) [Mass/Vol] 2.7 g/dL [facility] Globulin Calc (S) [Mass/Vol] Ordered By: Colten Fry on 08-19-2022 Globulin (S) [Mass/Vol] 3.0 g/dL [facility] HCG ( test) IA.rapi d Ql (U)Ordered By: Gilson Castro on 08-19-2022 HCG ( test) Ql (U) Negative [facility] HCG ( test) IA.rapi d Ql (U)Ordered By: Colten Fry on 08-19-2022 HCG ( test) Ql (U) Negative [facility] Hematocrit Auto (Bld) [Volum e fraction]Ordered By: Gilson Castro on 08-19-2022 Hematocrit (Bld) [Volume fraction] 40.6 % 36.0-46.0 [facility] Hematocrit Auto (Bld) [Volum e fraction]Ordered By: Colten Fry on 08-19-2022 Hematocrit (Bld) [Volume fraction] 39.5 % 36.0-46.0 [facility] Ketones Auto test strip (U) [Mass/Vol]Ordered By: Gilson Castro on 08-19-2022 Ketones (U) [Mass/Vol] 4+ Negative [facility] Ketones Auto test strip (U) [Mass/Vol]Ordered By: Colten Fry on 08-19-2022 Ketones (U) [Mass/Vol] 3+ Negative [facility] Laboratory - Chemistry and C hemistry - challengeOrdered By: Gilson Castro on 08-19-2022 Lipase [Catalytic activity/Vol] 24.0 U/L 51 [facility] Magnesium [Mass/Vol] 2.0 mg/dL 1.6-2.6 [facility] Laboratory - Hematology and Cell countsOrdered By: Gilson Castro on 08-19-2022 Nucleated RBC/100 WBC (Bld) [Ratio] 0.1 % 0-0.5 [facility] Laboratory - Hematology and Cell countsOrdered By: Colten Fry on 08-19-2022 Nucleated RBC/100 WBC (Bld) [Ratio] 0.0 % 0-0.5 [facility] - UrinalysisOrder ed By: Colten Fry on 08-19-2022 Hyaline casts LM Ql (Urine sed) None seen [LPF] 0-8 [facility] Lymphocytes Auto (Bld) [#/Vo l]Ordered By: Gilson Castro on 08-19-2022 Lymphocytes (Bld) [#/Vol] 2.3 10*3/uL 1.20-4.8 [facility] Lymphocytes Auto (Bld) [#/Vo l]Ordered By: Colten Fry on 08-19-2022 Lymphocytes (Bld) [#/Vol] 1.0 10*3/uL 1.20-4.8 [facility] Lymphocytes/100 WBC Auto (Bl d)Ordered By: Gilson Castro on 08-19-2022 Lymphocytes/100 WBC (Bld) 14.6 % . [facility] Lymphocytes/100 WBC Auto (Bl d)Ordered By: Colten Fry on 08-19-2022 Lymphocytes/100 WBC (Bld) 7.3 % . [facility] MCH Auto (RBC) [Entitic mass ]Ordered By: Gilson Castro on 08-19-2022 MCH (RBC) [Entitic mass] 27.9 pg 25.0-35.0 [facility] MCH Auto (RBC) [Entitic mass ]Ordered By: Colten Fry on 08-19-2022 MCH (RBC) [Entitic mass] 27.7 pg 25.0-35.0 [facility] MCHC Auto (RBC) [Mass/Vol]Or dered By: Gilson Castro on 08-19-2022 MCHC (RBC) [Mass/Vol] 32.6 g/dL 31.0-37.0 [facility] MCHC Auto (RBC) [Mass/Vol]Or dered By: Colten Fry on 08-19-2022 MCHC (RBC) [Mass/Vol] 32.3 g/dL 31.0-37.0 [facility] MCV Auto (RBC) [Entitic vol] Ordered By: Gilson Castro on 08-19-2022 MCV (RBC) [Entitic vol] 85.6 fL 78-102 [facility] MCV Auto (RBC) [Entitic vol] Ordered By: Colten Fry on 08-19-2022 MCV (RBC) [Entitic vol] 85.7 fL 78-102 [facility] Monocytes Auto (Bld) [#/Vol] Ordered By: Gilson Castro on 08-19-2022 Monocytes (Bld) [#/Vol] 1.1 10*3/uL 0.1-1.00 [facility] Monocytes Auto (Bld) [#/Vol] Ordered By: Colten Fry on 08-19-2022 Monocytes (Bld) [#/Vol] 0.3 10*3/uL 0.1-1.00 [facility] Monocytes/100 WBC Auto (Bld) Ordered By: Gilson Castro on 08-19-2022 Monocytes/100 WBC (Bld) 7.3 % . [facility] Monocytes/100 WBC Auto (Bld) Ordered By: Colten Fry on 08-19-2022 Monocytes/100 WBC (Bld) 2.1 % . [facility] Neutrophils Auto (Bld) [#/Vo l]Ordered By: Gilson Castro on 08-19-2022 Neutrophils (Bld) [#/Vol] 12.1 10*3/uL 1.2-7.7 [facility] Neutrophils Auto (Bld) [#/Vo l]Ordered By: Colten Fry on 08-19-2022 Neutrophils (Bld) [#/Vol] 12.2 10*3/uL 1.2-7.7 [facility] Neutrophils/100 WBC Auto (Bl d)Ordered By: Gilson Castro on 08-19-2022 Neutrophils/100 WBC (Bld) 77.7 % . [facility] Neutrophils/100 WBC Auto (Bl d)Ordered By: Colten Fry on 08-19-2022 Neutrophils/100 WBC (Bld) 90.2 % . [facility] Nitrite Test strip Ql (U)Ord ered By: Gilson Castro on 08-19-2022 Nitrite Ql (U) Negative Negative [facility] Nitrite Test strip Ql (U)Ord ered By: Colten Fry on 08-19-2022 Nitrite Ql (U) Negative Negative [facility] No Panel InformationOrdered By: Gilson Castro on 08-19-2022 Estimated GFR () > 60 mL/Min [facility] Comment on above: GFR estimated refere nce range: According to KDOQI guidelines, <60 ml/min/1.73m2 is sufficient to diagnose a patient with chronic kidney disease. Pharmacy Creatinine Clearance (Chem 121.95 [facility] > 60 mL/Min [facility] 2.0 mg/dL 1.6-2.6 [facility] 24.0 U/L [facility] 121.95 [facility] 15.5 10*3/uL 4.5-13.5 [facility] 0.1 % 0-0.5 [facility] SARS Antigen (LFIA) [facility] No Panel InformationOrdered By: Colten Fry on 08-19-2022 None seen [LPF] 0-8 [facility] Estimated GFR () > 60 mL/Min [facility] Comment on above: GFR estimated refere nce range: According to KDOQI guidelines, <60 ml/min/1.73m2 is sufficient to diagnose a patient with chronic kidney disease. Pharmacy Creatinine Clearance (Chem 106.97 [facility] 13.5 10*3/uL 4.5-13.5 [facility] 0.0 % 0-0.5 [facility] > 60 mL/Min [facility] 106.97 [facility] Platelet mean volume Auto (B ld) [Entitic vol]Ordered By: Gilson Castro on 08-19-2022 Platelet mean volume (Bld) [Entitic vol] 8.8 fL 6.3-10.7 [facility] Platelet mean volume Auto (B ld) [Entitic vol]Ordered By: Colten Fry on 08-19-2022 Platelet mean volume (Bld) [Entitic vol] 8.7 fL 6.3-10.7 [facility] Platelets Auto (Bld) [#/Vol] Ordered By: Gilson Castro on 08-19-2022 Platelets (Bld) [#/Vol] 314 10*3/uL 150-450 [facility] Platelets Auto (Bld) [#/Vol] Ordered By: Colten Fry on 08-19-2022 Platelets (Bld) [#/Vol] 258 10*3/uL 150-450 [facility] Protein Auto test strip (U) [Mass/Vol]Ordered By: Gilson Castro on 08-19-2022 Protein (U) [Mass/Vol] 30 mg/dL Negative Fi [facility] Protein Auto test strip (U) [Mass/Vol]Ordered By: Colten Fry on 08-19-2022 Protein (U) [Mass/Vol] Trace mg/dL Negative [facility] Protein [Mass/volume] in Ser um or PlasmaOrdered By: Gilson Castro on 08-19-2022 Protein [Mass/Vol] 6.7 g/dL 6.1-7.9 [facility] Protein [Mass/volume] in Ser um or PlasmaOrdered By: Colten Fry on 08-19-2022 Protein [Mass/Vol] 7.5 g/dL 6.1-7.9 [facility] RBC Auto (Bld) [#/Vol]Ordere d By: Gilson Castro on 08-19-2022 RBC (Bld) [#/Vol] 4.74 10*6/uL 4.10-5.10 [facility] RBC Auto (Bld) [#/Vol]Ordere d By: Colten Fry on 08-19-2022 RBC (Bld) [#/Vol] 4.60 10*6/uL 4.10-5.10 [facility] Serum or plasma alanine florez otransferase measurement without P-5'-P (enzymatic activiOrdered By: Gilson Castro on 08-19-2022 ALT No additional P-5'-P [Catalytic activity/Vol] 17 U/L 10-60 [facility] Serum or plasma alanine florez otransferase measurement without P-5'-P (enzymatic activiOrdered By: Colten Fry on 08-19-2022 ALT No additional P-5'-P [Catalytic activity/Vol] 16 U/L 10-60 [facility] Serum or plasma albumin/glob ulin mass ratioOrdered By: Gilson Castor on 08-19-2022 Albumin/Globulin [Mass ratio] 1.5 {ratio} [facility] Serum or plasma albumin/glob ulin mass ratioOrdered By: Colten Fry on 08-19-2022 Albumin/Globulin [Mass ratio] 1.5 {ratio} [facility] Serum or plasma alkaline justin sphatase measurement (enzymatic activity/volume)Ordered By: Gilson Castro on 08-19-2022 ALP [Catalytic activity/Vol] 51 U/L [facility] Serum or plasma alkaline justin sphatase measurement (enzymatic activity/volume)Ordered By: Colten Fry on 08-19-2022 ALP [Catalytic activity/Vol] 59 U/L [facility] Serum or plasma anion gap de terminationOrdered By: Gilson Castro on 08-19-2022 Anion gap [Moles/Vol] 13.8 mmol/L 6.0-15.0 [facility] Serum or plasma anion gap de terminationOrdered By: Colten Fry on 08-19-2022 Anion gap [Moles/Vol] 19.5 mmol/L 6.0-15.0 [facility] Serum or plasma aspartate am inotransferase measurement (enzymatic activity/volume)Ordered By: Gilson Castro on 08-19-2022 AST [Catalytic activity/Vol] 17 U/L [facility] Serum or plasma aspartate am inotransferase measurement (enzymatic activity/volume)Ordered By: Colten Fry on 08-19-2022 AST [Catalytic activity/Vol] 20 U/L [facility] Serum or plasma calcium tammy urement (mass/volume)Ordered By: Gilson Castro on 08-19-2022 Calcium [Mass/Vol] 9.1 mg/dL 8.2-10.2 [facility] Serum or plasma calcium tammy urement (mass/volume)Ordered By: Colten Fry on 08-19-2022 Calcium [Mass/Vol] 9.8 mg/dL 8.2-10.2 [facility] Serum or plasma chloride judy surement (moles/volume)Ordered By: Gilson Castro on 08-19-2022 Chloride [Moles/Vol] 104 mmol/L 95-114 [facility] Serum or plasma chloride judy surement (moles/volume)Ordered By: Colten Fry on 08-19-2022 Chloride [Moles/Vol] 107 mmol/L 95-114 [facility] Serum or plasma creatinine m easurement with calculation of estimated glomerular filtrOrdered By: Gilson Castro on 08-19-2022 Creatinine and Glomerular filtration rate.predicted panel (S/P/Bld) 0.73 mg/dL 0.44-1.03 [facility] Serum or plasma creatinine m easurement with calculation of estimated glomerular filtrOrdered By: Colten Fry on 08-19-2022 Creatinine and Glomerular filtration rate.predicted panel (S/P/Bld) 0.82 mg/dL 0.44-1.03 [facility] Serum or plasma glucose tammy urement (mass/volume)Ordered By: Gilson Castro on 08-19-2022 Glucose [Mass/Vol] 108 mg/dL 70-100 [facility] Comment on above: ADA recommended refe [...] on 08-19-2022 Glucose [Mass/Vol] 131 mg/dL 70-100 [facility] Comment on above: ADA recommended refe [...] on 08-19-2022 Potassium [Moles/Vol] 3.1 mmol/L 3.5-5.1 [facility] Serum or plasma potassium me asurement (moles/volume)Ordered By: Colten Fry on 08-19-2022 Potassium [Moles/Vol] 3.9 mmol/L 3.5-5.1 [facility] Serum or plasma sodium measu rement (moles/volume)Ordered By: Gilson Castro on 08-19-2022 Sodium [Moles/Vol] 138 mmol/L 136-146 [facility] Serum or plasma sodium measu rement (moles/volume)Ordered By: Colten Fry on 08-19-2022 Sodium [Moles/Vol] 142 mmol/L 136-146 [facility] Serum or plasma total biliru bin measurement (mass/volume)Ordered By: Gilson Castro on 08-19-2022 Bilirubin [Mass/Vol] 0.5 mg/dL 0.3-1.2 [facility] Serum or plasma total biliru bin measurement (mass/volume)Ordered By: Colten Fry on 08-19-2022 Bilirubin [Mass/Vol] 0.6 mg/dL 0.3-1.2 [facility] Serum or plasma total carbon dioxide measurement (moles/volume)Ordered By: Gilson Castro on 08-19-2022 CO2 [Moles/Vol] 23.3 mmol/L 22.0-30.0 [facility] Serum or plasma total carbon dioxide measurement (moles/volume)Ordered By: Colten Fry on 08-19-2022 CO2 [Moles/Vol] 19.4 mmol/L 22.0-30.0 [facility] Serum or plasma urea nitroge n measurement (mass/volume)Ordered By: Gilson Castro on 08-19-2022 Urea nitrogen [Mass/Vol] 15 mg/dL 08-20 [facility] Serum or plasma urea nitroge n measurement (mass/volume)Ordered By: Colten Fry on 08-19-2022 Urea nitrogen [Mass/Vol] 14 mg/dL 08-20 [facility] Specific gravity Auto test s trip (U) [Rel density]Ordered By: Gilson Castro on 08-19-2022 Specific gravity (U) [Rel density] 1.026 1.001-1.03 0 [facility] Specific gravity Auto test s trip (U) [Rel density]Ordered By: Colten Fry on 08-19-2022 Specific gravity (U) [Rel density] 1.023 1.001-1.03 0 [facility] Squamous epithelial cells de tection in urine sediment by light microscopyOrdered By: Gilson Castro on 08-19-2022 Epithelial cells.squamous LM Ql (Urine sed) 20-30 [HPF] 0-2 [facility] Squamous epithelial cells de tection in urine sediment by light microscopyOrdered By: Colten Fry on 08-19-2022 Epithelial cells.squamous LM Ql (Urine sed) 20-30 [HPF] 0-2 [facility] Urine bacteria detection by automated methodOrdered By: Gilson Castro on 08-19-2022 Bacteria Auto Ql (U) 2+ None Seen [facility] Urine bacteria detection by automated methodOrdered By: Colten Fry on 08-19-2022 Bacteria Auto Ql (U) 1+ None Seen [facility] Urine clarity by refractomet ry automatedOrdered By: Gilson Castro on 08-19-2022 Clarity Refractometry automated (U) Turbid Clear [facility] Urine clarity by refractomet ry automatedOrdered By: Colten Fry on 08-19-2022 Clarity Refractometry automated (U) Cloudy Clear [facility] Urine glucose measurement by automated test strip (mass/volume)Ordered By: Gilson Castro on 08-19-2022 Glucose Auto test strip (U) [Mass/Vol] Normal mg/dL Normal [facility] Urine glucose measurement by automated test strip (mass/volume)Ordered By: Colten Fry on 08-19-2022 Glucose Auto test strip (U) [Mass/Vol] Normal mg/dL Normal [facility] Urine hemoglobin detection b y automated test stripOrdered By: Gilson Castro on 08-19-2022 Hemoglobin Auto test strip Ql (U) Negative Negative [facility] Urine hemoglobin detection b y automated test stripOrdered By: Colten Fry on 08-19-2022 Hemoglobin Auto test strip Ql (U) Negative Negative [facility] Urine leukocyte esterase det ection by automated test stripOrdered By: Gilson Castro on 08-19-2022 Leukocyte esterase Auto test strip Ql (U) 2+ Negative [facility] Urine leukocyte esterase det ection by automated test stripOrdered By: Colten Fyr on 08-19-2022 Leukocyte esterase Auto test strip Ql (U) 1+ Negative [facility] Urobilinogen Auto test strip (U) [Mass/Vol]Ordered By: Gilson Castro on 08-19-2022 Urobilinogen (U) [Mass/Vol] Normal mg/dL Normal [facility] Urobilinogen Auto test strip (U) [Mass/Vol]Ordered By: Colten Fry on 08-19-2022 Urobilinogen (U) [Mass/Vol] Normal mg/dL Normal [facility] pH Auto test strip (U)Ordere d By: Gilson Castro on 08-19-2022 pH (U) 8.0 [pH] 5.0-9.0 [facility] pH Auto test strip (U)Ordere d By: Colten Fry on 08-19-2022 pH (U) 6.0 [pH] 5.0-9.0 [facility] COVID-19 SOFIAOrdered By: Lul Rivera on 08-18-2022 SARS-CoV+SARS-CoV-2 (COVID-19) Ag IA.rapid Ql (Resp) Negative Negative [facility] Comment on above: This is a duplicate [facility] SARS Antigen (JOSE A) result to be used for statistical tracking purpose only. No Panel InformationOrdered By: Joss Rivera on 08-18-2022 SARS Antigen (LFIA) [facility] Basophils Auto (Bld) [#/Vol] Ordered By: Modesta Chand on 06-25-2022 Basophils (Bld) [#/Vol] 0.1 10*3/uL 0.0-0.1 [facility] Basophils/100 WBC Auto (Bld) Ordered By: Modesta Chand on 06-25-2022 Basophils/100 WBC (Bld) 1.2 % . [facility] Blood hemoglobin measurement (mass/volume)Ordered By: Modesta Chand on 06-25-2022 Hemoglobin (Bld) [Mass/Vol] 13.8 g/dL 12.0-16.0 [facility] Blood leukocytes automated c ount (number/volume)Ordered By: Modesta Chand on 06-25-2022 WBC (Bld) [#/Vol] 7.9 10*3/uL 4.5-13.5 [facility] Body fluid albumin measureme nt (mass/volume)Ordered By: Modesta Chand on 06-25-2022 Albumin (Body fld) [Mass/Vol] 4.5 g/dL 3.2-5.[address] [facility] [address] biopsyOrdered By: Yasmine Chand on 06-25-2022 Transferrin [Mass/Vol] 328 mg/dL 180-380 [facility] Creatinine and Glomerular fi ltration rate.predicted panel (S/P/Bld)Ordered By: Modesta Chand on 06-25-2022 Creatinine [Mass/Vol] 0.67 mg/dL 0.44-1.03 [facility] Eosinophils Auto (Bld) [#/Vo l]Ordered By: Modesta Chand on 06-25-2022 Eosinophils (Bld) [#/Vol] 0.6 10*3/uL 0.0-0.7 [facility] Eosinophils/100 WBC Auto (Bl d)Ordered By: Modesta Chand on 06-25-2022 Eosinophils/100 WBC (Bld) 7.2 % . [facility] Erythrocyte distribution wid th Auto (RBC) [Ratio]Ordered By: Modesta Chand on 06-25-2022 Erythrocyte distribution width (RBC) [Ratio] 13.6 % 11.9-15.3 [facility] Estimated glomerular filtrat ion rate (GFR) non- AmericanOrdered By: Modesta Chand on 06-25-2022 GFR/1.73 sq M.predicted among non-blacks MDRD (S/P/Bld) [Vol rate/Area] > 60 mL/Min [facility] Ferritin [Mass/volume] in Se rum or PlasmaOrdered By: Modesta Chand on 06-25-2022 Ferritin [Mass/Vol] 28.5 ng/mL 11-306.8 [facility] Globulin Calc (S) [Mass/Vol] Ordered By: Modesta Chand on 06-25-2022 Globulin (S) [Mass/Vol] 2.5 g/dL [facility] Hematocrit Auto (Bld) [Volum e fraction]Ordered By: Modesta Chand on 06-25-2022 Hematocrit (Bld) [Volume fraction] 42.3 % 36.0-46.0 [facility] Iron [Mass/volume] in Serum or PlasmaOrdered By: Modesta Chand on 06-25-2022 Iron [Mass/Vol] 52 ug/dL 40-150 [facility] Iron binding capacity [Mass/ volume] in Serum or PlasmaOrdered By: Modesta Chand on 06-25-2022 Iron binding capacity [Mass/Vol] 459 ug/dL 255-450 [facility] Iron saturation [Mass Fracti on] in Serum or PlasmaOrdered By: Modesta Chand on 06-25-2022 Iron saturation [Mass fraction] 11.0 % 20-50 [facility] - Hematology and Cell countsOrdered By: Modesta Chand on 06-25-2022 Nucleated RBC/100 WBC (Bld) [Ratio] 0.0 % 0-0.5 [facility] Lymphocytes Auto (Bld) [#/Vo l]Ordered By: Modesta Chand on 06-25-2022 Lymphocytes (Bld) [#/Vol] 2.1 10*3/uL 1.20-4.8 [facility] Lymphocytes/100 WBC Auto (Bl d)Ordered By: Modesta Chand on 06-25-2022 Lymphocytes/100 WBC (Bld) 26.9 % . [facility] MCH Auto (RBC) [Entitic mass ]Ordered By: Modesta Chand on 06-25-2022 MCH (RBC) [Entitic mass] 28.1 pg 25.0-35.0 [facility] MCHC Auto (RBC) [Mass/Vol]Or dered By: Modesta Chand on 06-25-2022 MCHC (RBC) [Mass/Vol] 32.7 g/dL 31.0-37.0 [facility] MCV Auto (RBC) [Entitic vol] Ordered By: Modesta Chand on 06-25-2022 MCV (RBC) [Entitic vol] 85.8 fL 78-102 [facility] Monocytes Auto (Bld) [#/Vol] Ordered By: Modesta Chand on 06-25-2022 Monocytes (Bld) [#/Vol] 0.6 10*3/uL 0.1-1.00 [facility] Monocytes/100 WBC Auto (Bld) Ordered By: Modesta Chand on 06-25-2022 Monocytes/100 WBC (Bld) 7.2 % . [facility] Neutrophils Auto (Bld) [#/Vo l]Ordered By: Modesta Chand on 06-25-2022 Neutrophils (Bld) [#/Vol] 4.5 10*3/uL 1.2-7.7 [facility] Neutrophils/100 WBC Auto (Bl d)Ordered By: Modesta Chand on 06-25-2022 Neutrophils/100 WBC (Bld) 57.5 % . [facility] No Panel InformationOrdered By: Modesta Chand on 06-25-2022 25-Hydroxy Vitamin D Total 35.9 ng/mL 30-100 [facility] Comment on above: VITAMIN D STATUS 25( [place])VITAMIN D RANGE (ng/mL) Deficient <20 Insufficient 20 to <30 Sufficient 30 to 100 Reference: Danica MF,Chayo NC, Sony GUERRERO, et al. Evaluation,treatment, and prevention of vitamin D deficiency; an Endocrine Society clinical practice guideline. JCEM. 2010; 96(7):1911-30. Absolute Reticulocyte Count 0.066 10*6/uL 0.024-0.08 4 [facility] Estimated GFR () > 60 mL/Min [facility] Comment on above: GFR estimated refere nce range: According to KDOQI guidelines, <60 ml/min/1.73m2 is sufficient to diagnose a patient with chronic kidney disease. Percent Reticulocyte Count 1.3 % 0.5-1.5 [facility] Creatinine Clearance (Chem N/A [facility] Platelet mean volume Auto (B ld) [Entitic vol]Ordered By: Modesta Chand on 06-25-2022 Platelet mean volume (Bld) [Entitic vol] 9.0 fL 6.3-10.7 [facility] Platelets Auto (Bld) [#/Vol] Ordered By: Modesta Chand on 06-25-2022 Platelets (Bld) [#/Vol] 263 10*3/uL 150-450 [facility] Protein [Mass/volume] in Ser um or PlasmaOrdered By: Modesta Chand on 06-25-2022 Protein [Mass/Vol] 7.0 g/dL 6.1-7.9 [facility] RBC Auto (Bld) [#/Vol]Ordere d By: Modesta Chand on 06-25-2022 RBC (Bld) [#/Vol] 4.94 10*6/uL 4.10-5.10 [facility] Serum or plasma alanine florez otransferase measurement without P-5'-P (enzymatic activiOrdered By: Modesta Chand on 06-25-2022 ALT No additional P-5'-P [Catalytic activity/Vol] 18 U/L 10-60 [facility] Serum or plasma albumin/glob ulin mass ratioOrdered By: Modesta Chand on 06-25-2022 Albumin/Globulin [Mass ratio] 1.8 {ratio} [facility] Serum or plasma alkaline justin sphatase measurement (enzymatic activity/volume)Ordered By: Modesta Chand on 06-25-2022 ALP [Catalytic activity/Vol] 65 U/L 32-92 [facility] Serum or plasma aspartate am inotransferase measurement (enzymatic activity/volume)Ordered By: Modesta Chand on 06-25-2022 AST [Catalytic activity/Vol] 18 U/L 10-42 [facility] Serum or plasma calcium tammy urement (mass/volume)Ordered By: Modesta Chand on 06-25-2022 Calcium [Mass/Vol] 10.2 mg/dL 8.2-10.2 [facility] Serum or plasma chloride judy surement (moles/volume)Ordered By: Modesta Chand on 06-25-2022 Chloride [Moles/Vol] 102 mmol/L 95-114 [facility] Serum or plasma glucose tammy urement (mass/volume)Ordered By: Modesta Chand on 06-25-2022 Glucose [Mass/Vol] 87 mg/dL 70-100 [facility] Comment on above: ADA recommended refe rence range Random Glucose Reference Range is dependent on time and content of last meal. Glucose of more than 200 mg/dL in a nonstressed, ambulatory subject supports the diagnosis of Diabetes Mellitus. Serum or plasma potassium me asurement (moles/volume)Ordered By: Modesta Chand on 06-25-2022 Potassium [Moles/Vol] 4.4 mmol/L 3.5-5.1 [facility] Serum or plasma sodium measu rement (moles/volume)Ordered By: Modesta Chand on 06-25-2022 Sodium [Moles/Vol] 137 mmol/L 136-146 [facility] Serum or plasma total biliru bin measurement (mass/volume)Ordered By: Modesta Chand on 06-25-2022 Bilirubin [Mass/Vol] 0.4 mg/dL 0.3-1.2 [facility] Serum or plasma total carbon dioxide measurement (moles/volume)Ordered By: Modesta Chand on 06-25-2022 CO2 [Moles/Vol] 23.8 mmol/L 22.0-30.0 [facility] Serum or plasma urea nitroge n measurement (mass/volume)Ordered By: Modesta Chand on 06-25-2022 Urea nitrogen [Mass/Vol] 14 mg/dL 9-23 [facility] TSH DL <= 0.005 mIU/L QnOrde red By: Modesta Chand on 06-25-2022 TSH Qn 1.05 m[IU]/L 0.45-5.33 [facility] Thyroxine (T4) free [Mass/vo lume] in Serum or PlasmaOrdered By: Modesta Chand on 06-25-2022 Free T4 [Mass/Vol] 0.74 ng/dL 0.61-1.12 [facility] HCG ( test) IA.rapi d Ql (U)Ordered By: Brennen Britt on 06-09-2022 HCG ( test) Ql (U) Negative [facility] COVID-19 Positive/NegativeOr dered By: Brennen Britt on 06-07-2022 SARS-CoV-2 (COVID-19) N gene JANAK+probe Ql (Resp) Negative Negative [facility] Comment on above: Testing for SARS-CoV -2 by RT-PCR This test was developed and its performance characteristics determined by [employer] ([employer]) and validated at the [facility]. This test has not been FDA [...] on 05-26-2022 Albumin [Mass/Vol] 3.9 g/dL 3.2-5.5 [facility] Basophils Auto (Bld) [#/Vol] Ordered By: Modesta Chand on 05-26-2022 Basophils (Bld) [#/Vol] 0.1 10*3/uL 0.0-0.1 [facility] Basophils/100 WBC Auto (Bld) Ordered By: Modesta Chand on 05-26-2022 Basophils/100 WBC (Bld) 1.1 % . [facility] Blood hemoglobin measurement (mass/volume)Ordered By: Modesta Chand on 05-26-2022 Hemoglobin (Bld) [Mass/Vol] 13.6 g/dL 12.0-16.0 [facility] Blood leukocytes automated c ount (number/volume)Ordered By: Modesta Chand on 05-26-2022 WBC (Bld) [#/Vol] 10.6 10*3/uL 4.5-13.5 [facility] C reactive protein [Mass/vol ume] in Serum or PlasmaOrdered By: Modesta Chand on 05-26-2022 CRP [Mass/Vol] 0.6 mg/dL 0.0-1.0 [facility] CT biopsyOrdered By: Yasmine Chand on 05-26-2022 Transferrin [Mass/Vol] 292 mg/dL 180-380 Fi [facility] Creatinine and Glomerular fi ltration rate.predicted panel (S/P/Bld)Ordered By: Modesta Chand on 05-26-2022 Creatinine [Mass/Vol] 0.63 mg/dL 0.44-1.03 [facility] Eosinophils Auto (Bld) [#/Vo l]Ordered By: Modesta Chand on 05-26-2022 Eosinophils (Bld) [#/Vol] 0.4 10*3/uL 0.0-0.7 [facility] Eosinophils/100 WBC Auto (Bl d)Ordered By: Modesta Chand on 05-26-2022 Eosinophils/100 WBC (Bld) 3.6 % . [facility] Erythrocyte distribution wid th Auto (RBC) [Ratio]Ordered By: Modesta Chand on 05-26-2022 Erythrocyte distribution width (RBC) [Ratio] 13.7 % 11.9-15.3 [facility] Erythrocyte sedimentation ra te by Photometric methodOrdered By: Modesta Chand on 05-26-2022 ESR Photometric method (Bld) [Velocity] 5 mm/hr 0-19 [facility] Estimated glomerular filtrat ion rate (GFR) non- AmericanOrdered By: Modesta Chand on 05-26-2022 GFR/1.73 sq M.predicted among non-blacks MDRD (S/P/Bld) [Vol rate/Area] > 60 mL/Min [facility] Ferritin [Mass/volume] in Se rum or PlasmaOrdered By: Modesta Chand on 05-26-2022 Ferritin [Mass/Vol] 14.2 ng/mL 11-306.8 [facility] Folate [Mass/volume] in Seru m or PlasmaOrdered By: Modesta Chand on 05-26-2022 Folate [Mass/Vol] 13.0 ng/mL >5.9 [facility] Comment on above: Folate reference ran ge: >5.9 ng/ml The WHO technical consultation on folate and vitamin b12 deficiencies has determined that folate concentrations less than 4 ng/ml are considered deficient. Globulin Calc (S) [Mass/Vol] Ordered By: Modesta Chand on 05-26-2022 Globulin (S) [Mass/Vol] 2.3 g/dL [facility] Glucose mean value [Mass/vol ume] in Blood Estimated from glycated hemoglobinOrdered By: Modesta Chand on 05-26-2022 Average glucose Estimated from glycated hemoglobin (Bld) [Mass/Vol] 111 mg/dL [facility] Hematocrit Auto (Bld) [Volum e fraction]Ordered By: Modesta Chand on 05-26-2022 Hematocrit (Bld) [Volume fraction] 41.4 % 36.0-46.0 [facility] Hemoglobin A1c percentageOrd ered By: Modesta Chand on 05-26-2022 HbA1c (Bld) [Mass fraction] 5.5 % 4.3-5.6 [facility] Comment on above: Increased risk for d iabetes: 5.7 - 6.4 diabetes: >6.4 glycemic control for adults with diabetes: <7.0 Iron [Mass/volume] in Serum or PlasmaOrdered By: Modesta Chand on 05-26-2022 Iron [Mass/Vol] 63 ug/dL 40-150 [facility] Iron binding capacity [Mass/ volume] in Serum or PlasmaOrdered By: Modesta Chand on 05-26-2022 Iron binding capacity [Mass/Vol] 409 ug/dL 255-450 [facility] Iron saturation [Mass Fracti on] in Serum or PlasmaOrdered By: Modesta Chand on 05-26-2022 Iron saturation [Mass fraction] 15.0 % 20-50 [facility] Laboratory - Chemistry and C hemistry - challengeOrdered By: Modesta Chand on 05-26-2022 Cobalamin (Vitamin B12) [Mass/Vol] 329 pg/mL 180-914 [facility] Laboratory - Hematology and Cell countsOrdered By: Modesta Chand on 05-26-2022 Nucleated RBC/100 WBC (Bld) [Ratio] 0.0 % 0-0.5 [facility] Lymphocytes Auto (Bld) [#/Vo l]Ordered By: Modesta Chand on 05-26-2022 Lymphocytes (Bld) [#/Vol] 2.3 10*3/uL 1.20-4.8 [facility] Lymphocytes/100 WBC Auto (Bl d)Ordered By: Modesta Chand on 05-26-2022 Lymphocytes/100 WBC (Bld) 21.6 % . [facility] MCH Auto (RBC) [Entitic mass ]Ordered By: Modesta Chand on 05-26-2022 MCH (RBC) [Entitic mass] 28.6 pg 25.0-35.0 [facility] MCHC Auto (RBC) [Mass/Vol]Or dered By: Modesta Chand on 05-26-2022 MCHC (RBC) [Mass/Vol] 33.0 g/dL 31.0-37.0 [facility] MCV Auto (RBC) [Entitic vol] Ordered By: Modesta Chand on 05-26-2022 MCV (RBC) [Entitic vol] 86.6 fL 78-102 [facility] Monocytes Auto (Bld) [#/Vol] Ordered By: Modesta Chand on 05-26-2022 Monocytes (Bld) [#/Vol] 0.6 10*3/uL 0.1-1.00 [facility] Monocytes/100 WBC Auto (Bld) Ordered By: Modesta Chand on 05-26-2022 Monocytes/100 WBC (Bld) 5.9 % . [facility] Neutrophils Auto (Bld) [#/Vo l]Ordered By: Modesta Chand on 05-26-2022 Neutrophils (Bld) [#/Vol] 7.2 10*3/uL 1.2-7.7 [facility] Neutrophils/100 WBC Auto (Bl d)Ordered By: Modesta Chand on 05-26-2022 Neutrophils/100 WBC (Bld) 67.8 % . [facility] No Panel InformationOrdered By: Modesta Chand on 05-26-2022 25-Hydroxy Vitamin D Total 26.9 ng/mL 30-100 [facility] Comment on above: VITAMIN D STATUS 25( [place])VITAMIN D RANGE (ng/mL) Deficient <20 Insufficient 20 to <30 Sufficient 30 to 100 Reference: Danica MF,Chayo NC, Sony GUERRERO, et al. Evaluation,treatment, and prevention of vitamin D deficiency; an Endocrine Society clinical practice guideline. JCEM. 2010; 96(7):1911-30. Estimated GFR () > 60 mL/Min [facility] Comment on above: GFR estimated refere nce range: According to KDOQI guidelines, <60 ml/min/1.73m2 is sufficient to diagnose a patient with chronic kidney disease. Pharmacy Creatinine Clearance (Chem N/A [facility] Platelet mean volume Auto (B ld) [Entitic vol]Ordered By: Modesta Chand on 05-26-2022 Platelet mean volume (Bld) [Entitic vol] 8.9 fL 6.3-10.7 [facility] Platelets Auto (Bld) [#/Vol] Ordered By: Modesta Chand on 05-26-2022 Platelets (Bld) [#/Vol] 286 10*3/uL 150-450 [facility] Protein [Mass/volume] in Ser um or PlasmaOrdered By: Modesta Chand on 05-26-2022 Protein [Mass/Vol] 6.2 g/dL 6.1-7.9 [facility] RBC Auto (Bld) [#/Vol]Ordere d By: Modesta Chand on 05-26-2022 RBC (Bld) [#/Vol] 4.78 10*6/uL 4.10-5.10 [facility] Serum nuclear antibody titer Ordered By: Modesta Chand on 05-26-2022 Nuclear Ab (S) [Titer] Negative . [facility] Comment on above: Negative <1:80 Borderline 1:80 Positive >1:80 ICAP nomenclature: AC-0 For more information about Hep-2 cell patterns use ANApatterns.org, the official website for the International Consensus on Antinuclear Antibody (EDMOND) Patterns (ICAP). Performed at: - [facility] [id number] Refund Specialist: James Nelson PhD, Phone: [phone] Serum or plasma alanine florez otransferase measurement without P-5'-P (enzymatic activiOrdered By: Modesta Chand on 05-26-2022 ALT No additional P-5'-P [Catalytic activity/Vol] 50 U/L 10-60 [facility] Serum or plasma albumin/glob ulin mass ratioOrdered By: Modesta Chand on 05-26-2022 Albumin/Globulin [Mass ratio] 1.7 {ratio} [facility] Serum or plasma alkaline justin sphatase measurement (enzymatic activity/volume)Ordered By: Modesta Chand on 05-26-2022 ALP [Catalytic activity/Vol] 58 U/L 32-92 [facility] Serum or plasma aspartate am inotransferase measurement (enzymatic activity/volume)Ordered By: Modesta Chand on 05-26-2022 AST [Catalytic activity/Vol] 25 U/L 10-42 [facility] Serum or plasma calcium tammy urement (mass/volume)Ordered By: Modesta Chand on 05-26-2022 Calcium [Mass/Vol] 9.3 mg/dL 8.2-10.2 [facility] Serum or plasma chloride judy surement (moles/volume)Ordered By: Modesta Chand on 05-26-2022 Chloride [Moles/Vol] 103 mmol/L 95-114 [facility] Serum or plasma glucose tammy urement (mass/volume)Ordered By: Modesta Chand on 05-26-2022 Glucose [Mass/Vol] 111 mg/dL 70-100 [facility] Comment on above: ADA recommended refe rence range Random Glucose Reference Range is dependent on time and content of last meal. Glucose of more than 200 mg/dL in a nonstressed, ambulatory subject supports the diagnosis of Diabetes Mellitus. Serum or plasma potassium me asurement (moles/volume)Ordered By: Modesta Chand on 05-26-2022 Potassium [Moles/Vol] 4.3 mmol/L 3.5-5.1 [facility] Serum or plasma sodium measu rement (moles/volume)Ordered By: Modesta Chand on 05-26-2022 Sodium [Moles/Vol] 137 mmol/L 136-146 [facility] Serum or plasma total biliru bin measurement (mass/volume)Ordered By: Modesta Chand on 05-26-2022 Bilirubin [Mass/Vol] 0.5 mg/dL 0.3-1.2 [facility] Serum or plasma total carbon dioxide measurement (moles/volume)Ordered By: Modesta Chand on 05-26-2022 CO2 [Moles/Vol] 24.9 mmol/L 22.0-30.0 [facility] Serum or plasma urea nitroge n measurement (mass/volume)Ordered By: Modesta Chand on 05-26-2022 Urea nitrogen [Mass/Vol] 9 mg/dL 08-20 [facility] Urine culture routineOrdered By: Gilson Castro on 05-18-2022 Bacteria identified Cx Nom (U) 2 Days [facility] Amphetamine Screen Ql (U)Ord ered By: Gilson Castro on 05-16-2022 Amphetamines Ql (U) Negative Negative [facility] Automated erythrocytes count in urine sediment (number/area)Ordered By: Gilson Castro on 05-16-2022 RBC Auto (Urine sed) [#/Area] 3-4 [HPF] 0-4 [facility] Automated leukocytes count i n urine sediment (number/area)Ordered By: Gilson Castro on 05-16-2022 WBC Auto (Urine sed) [#/Area] 5-9 [HPF] 0-4 [facility] Automated urine hyaline cast s count (number/volume)Ordered By: Gilson Castro on 05-16-2022 Hyaline casts Auto (U) [#/Vol] None seen [LPF] 0-1 [facility] Barbiturates [Presence] in U rineOrdered By: Gilson Castro on 05-16-2022 Barbiturates Ql (U) Positive Negative [facility] Basophils Auto (Bld) [#/Vol] Ordered By: Gilson Castro on 05-16-2022 Basophils (Bld) [#/Vol] 0.0 10*3/uL 0.0-0.1 [facility] Basophils/100 WBC Auto (Bld) Ordered By: Gilson Castro on 05-16-2022 Basophils/100 WBC (Bld) 0.4 % . [facility] Benzodiazepines [Presence] i n UrineOrdered By: Gilson Castro on 05-16-2022 Benzodiazepines Ql (U) Negative Negative [facility] Bilirubin Test strip Ql (U)O rdered By: Gilson Castro on 05-16-2022 Bilirubin Ql (U) Negative Negative [facility] Blood hemoglobin measurement (mass/volume)Ordered By: Gilson Castro on 05-16-2022 Hemoglobin (Bld) [Mass/Vol] 13.4 g/dL 12.0-16.0 [facility] Blood leukocytes automated c ount (number/volume)Ordered By: Gilson Castro on 05-16-2022 WBC (Bld) [#/Vol] 10.0 10*3/uL 4.5-13.5 [facility] Body fluid albumin measureme nt (mass/volume)Ordered By: Gilson Castro on 05-16-2022 Albumin (Body fld) [Mass/Vol] 4.3 g/dL 3.2-5.5 [facility] Cannabinoids [Presence] in U rine by Screen methodOrdered By: Gilson Castro on 05-16-2022 Cannabinoids Screen Ql (U) Positive Negative [facility] Comment on above: These are unconfirme [...] (Urine sed) None seen [LPF] None Seen [facility] Color Auto (U)Ordered By: Pierce Castro on 05-16-2022 Color (U) Yellow Yellow [facility] Creatinine and Glomerular fi ltration rate.predicted panel (S/P/Bld)Ordered By: Gilson Castro on 05-16-2022 Creatinine [Mass/Vol] 0.80 mg/dL 0.44-1.03 [facility] Eosinophils Auto (Bld) [#/Vo l]Ordered By: Gilson Castro on 05-16-2022 Eosinophils (Bld) [#/Vol] 0.1 10*3/uL 0.0-0.7 [facility] Eosinophils/100 WBC Auto (Bl d)Ordered By: Gilson Castro on 05-16-2022 Eosinophils/100 WBC (Bld) 0.7 % . [facility] Erythrocyte distribution wid th Auto (RBC) [Ratio]Ordered By: Gilson Castro on 05-16-2022 Erythrocyte distribution width (RBC) [Ratio] 13.4 % 11.9-15.3 [facility] Estimated glomerular filtrat ion rate (GFR) non- AmericanOrdered By: Gilson Castro on 05-16-2022 GFR/1.73 sq M.predicted among non-blacks MDRD (S/P/Bld) [Vol rate/Area] > 60 mL/Min [facility] Globulin Calc (S) [Mass/Vol] Ordered By: Gilson Castro on 05-16-2022 Globulin (S) [Mass/Vol] 2.7 g/dL [facility] HCG ( test) IA.rapi d Ql (U)Ordered By: Gilson Castro on 05-16-2022 HCG ( test) Ql (U) Negative [facility] Hematocrit Auto (Bld) [Volum e fraction]Ordered By: Gilson Castro on 05-16-2022 Hematocrit (Bld) [Volume fraction] 39.4 % 36.0-46.0 [facility] Ketones Auto test strip (U) [Mass/Vol]Ordered By: Gilson Castro on 05-16-2022 Ketones (U) [Mass/Vol] 3+ Negative [facility] Laboratory - Chemistry and C hemistry - challengeOrdered By: Gilson Castro on 05-16-2022 Lipase [Catalytic activity/Vol] 26.0 U/L 22-51 [facility] Laboratory - Drug toxicology Ordered By: Gilson Castro on 05-16-2022 Opiates Ql (U) Negative Negative [facility] Laboratory - Hematology and Cell countsOrdered By: Gilson Castro on 05-16-2022 Nucleated RBC/100 WBC (Bld) [Ratio] 0.0 % 0-0.5 [facility] Lymphocytes Auto (Bld) [#/Vo l]Ordered By: Gilson Castro on 05-16-2022 Lymphocytes (Bld) [#/Vol] 1.9 10*3/uL 1.20-4.8 [facility] Lymphocytes/100 WBC Auto (Bl d)Ordered By: Gilson Castro on 05-16-2022 Lymphocytes/100 WBC (Bld) 18.7 % . [facility] MCH Auto (RBC) [Entitic mass ]Ordered By: Gilson Castro on 05-16-2022 MCH (RBC) [Entitic mass] 28.6 pg 25.0-35.0 [facility] MCHC Auto (RBC) [Mass/Vol]Or dered By: Gilson Castro on 05-16-2022 MCHC (RBC) [Mass/Vol] 34.1 g/dL 31.0-37.0 [facility] MCV Auto (RBC) [Entitic vol] Ordered By: Gilson Castro on 05-16-2022 MCV (RBC) [Entitic vol] 84.0 fL 78-102 [facility] Monocytes Auto (Bld) [#/Vol] Ordered By: Gilson Castro on 05-16-2022 Monocytes (Bld) [#/Vol] 0.9 10*3/uL 0.1-1.00 [facility] Monocytes/100 WBC Auto (Bld) Ordered By: Gilson Castro on 05-16-2022 Monocytes/100 WBC (Bld) 9.2 % . [facility] Neutrophils Auto (Bld) [#/Vo l]Ordered By: Gilson Castro on 05-16-2022 Neutrophils (Bld) [#/Vol] 7.1 10*3/uL 1.2-7.7 [facility] Neutrophils/100 WBC Auto (Bl d)Ordered By: Gilson Castro on 05-16-2022 Neutrophils/100 WBC (Bld) 71.0 % . [facility] Nitrite Test strip Ql (U)Ord ered By: Gilson Castro on 05-16-2022 Nitrite Ql (U) Negative Negative [facility] No Panel InformationOrdered By: Gilson Castro on 05-16-2022 Estimated GFR () > 60 mL/Min [facility] Comment on above: GFR estimated refere nce range: According to KDOQI guidelines, <60 ml/min/1.73m2 is sufficient to diagnose a patient with chronic kidney disease. Pharmacy Creatinine Clearance (Chem 109.65 [facility] Phencyclidine Screen Ql (U)O rdered By: Gilson Castro on 05-16-2022 Phencyclidine Ql (U) Negative Negative [facility] Platelet mean volume Auto (B ld) [Entitic vol]Ordered By: Gilson Castro on 05-16-2022 Platelet mean volume (Bld) [Entitic vol] 8.5 fL 6.3-10.7 [facility] Platelets Auto (Bld) [#/Vol] Ordered By: Gilson Castro on 05-16-2022 Platelets (Bld) [#/Vol] 241 10*3/uL 150-450 [facility] Protein Auto test strip (U) [Mass/Vol]Ordered By: Gilson Castro on 05-16-2022 Protein (U) [Mass/Vol] Trace mg/dL Negative [facility] Protein [Mass/volume] in Ser um or PlasmaOrdered By: Gilson Castro on 05-16-2022 Protein [Mass/Vol] 7.0 g/dL 6.1-7.9 [facility] RBC Auto (Bld) [#/Vol]Ordere d By: Gilson Castro on 05-16-2022 RBC (Bld) [#/Vol] 4.69 10*6/uL 4.10-5.10 [facility] Serum or plasma alanine florez otransferase measurement without P-5'-P (enzymatic activiOrdered By: Gilson Castro on 05-16-2022 ALT No additional P-5'-P [Catalytic activity/Vol] 23 U/L 10-60 [facility] Serum or plasma albumin/glob ulin mass ratioOrdered By: Gilson Castro on 05-16-2022 Albumin/Globulin [Mass ratio] 1.6 {ratio} [facility] Serum or plasma alkaline justin sphatase measurement (enzymatic activity/volume)Ordered By: Gilson Castro on 05-16-2022 ALP [Catalytic activity/Vol] 58 U/L 32-92 [facility] Serum or plasma aspartate am inotransferase measurement (enzymatic activity/volume)Ordered By: Gilson Castro on 05-16-2022 AST [Catalytic activity/Vol] 22 U/L 10-42 [facility] Serum or plasma calcium tammy urement (mass/volume)Ordered By: Gilson Castro on 05-16-2022 Calcium [Mass/Vol] 9.2 mg/dL 8.2-10.2 [facility] Serum or plasma chloride judy surement (moles/volume)Ordered By: Gilson Castro on 05-16-2022 Chloride [Moles/Vol] 97 mmol/L 95-114 [facility] Serum or plasma glucose tammy urement (mass/volume)Ordered By: Gilson Castro on 05-16-2022 Glucose [Mass/Vol] 90 mg/dL 70-100 [facility] Comment on above: ADA recommended refe rence range Random Glucose Reference Range is dependent on time and content of last meal. Glucose of more than 200 mg/dL in a nonstressed, ambulatory subject supports the diagnosis of Diabetes Mellitus. Serum or plasma potassium me asurement (moles/volume)Ordered By: Gilson Castro on 05-16-2022 Potassium [Moles/Vol] 3.2 mmol/L 3.5-5.1 [facility] Serum or plasma sodium measu rement (moles/volume)Ordered By: Gilson Castro on 05-16-2022 Sodium [Moles/Vol] 135 mmol/L 136-146 [facility] Serum or plasma total biliru bin measurement (mass/volume)Ordered By: Gilson Castro on 05-16-2022 Bilirubin [Mass/Vol] 1.0 mg/dL 0.3-1.2 [facility] Serum or plasma total carbon dioxide measurement (moles/volume)Ordered By: Gilson Castro on 05-16-2022 CO2 [Moles/Vol] 24.6 mmol/L 22.0-30.0 [facility] Serum or plasma urea nitroge n measurement (mass/volume)Ordered By: Gilson Castro on 05-16-2022 Urea nitrogen [Mass/Vol] 23 mg/dL 9- [facility] Specific gravity Auto test s trip (U) [Rel density]Ordered By: Gilson Castro on 05-16-2022 Specific gravity (U) [Rel density] 1.023 1.001-1.03 0 [facility] Squamous epithelial cells de tection in urine sediment by light microscopyOrdered By: Gilson Castro on 05-16-2022 Epithelial cells.squamous LM Ql (Urine sed) 20-30 [HPF] 0-2 [facility] Urine bacteria detection by automated methodOrdered By: Gilson Castro on 05-16-2022 Bacteria Auto Ql (U) 1+ None Seen [facility] Urine clarity by refractomet ry automatedOrdered By: Gilson Castro on 05-16-2022 Clarity Refractometry automated (U) Turbid Clear [facility] Urine cocaine detectionOrder ed By: Gilson Castro on 05-16-2022 Cocaine Ql (U) Negative Negative [facility] Urine glucose measurement by automated test strip (mass/volume)Ordered By: Gilson Castro on 05-16-2022 Glucose Auto test strip (U) [Mass/Vol] Normal mg/dL Normal [facility] Urine hemoglobin detection b y automated test stripOrdered By: Gilson Castro on 05-16-2022 Hemoglobin Auto test strip Ql (U) Negative Negative [facility] Urine leukocyte esterase det ection by automated test stripOrdered By: Gilson Castro on 05-16-2022 Leukocyte esterase Auto test strip Ql (U) 2+ Negative [facility] Urobilinogen Auto test strip (U) [Mass/Vol]Ordered By: Gilson Castro on 05-16-2022 Urobilinogen (U) [Mass/Vol] Normal mg/dL Normal [facility] pH Auto test strip (U)Ordere d By: Gilson Castro on 05-16-2022 pH (U) 8.0 [pH] 5.0-9.0 [facility] Albumin [Mass/volume] in Ser um or PlasmaOrdered By: Art Bianchi on 05-15-2022 Albumin [Mass/Vol] 4.7 g/dL 3.2-5.5 [facility] Basophils Auto (Bld) [#/Vol] Ordered By: Art Bianchi on 05-15-2022 Basophils (Bld) [#/Vol] 0.0 10*3/uL 0.0-0.1 [facility] Basophils/100 WBC Auto (Bld) Ordered By: Art Bianchi on 05-15-2022 Basophils/100 WBC (Bld) 0.2 % . [facility] Blood hemoglobin measurement (mass/volume)Ordered By: Art Bianchi on 05-15-2022 Hemoglobin (Bld) [Mass/Vol] 13.6 g/dL 12.0-16.0 [facility] Blood leukocytes automated c ount (number/volume)Ordered By: Art Bianchi on 05-15-2022 WBC (Bld) [#/Vol] 14.0 10*3/uL 4.5-13.5 [facility] Creatinine and Glomerular fi ltration rate.predicted panel (S/P/Bld)Ordered By: Art Bianchi on 05-15-2022 Creatinine [Mass/Vol] 0.76 mg/dL 0.44-1.03 [facility] Eosinophils Auto (Bld) [#/Vo l]Ordered By: Art Bianchi on 05-15-2022 Eosinophils (Bld) [#/Vol] 0.0 10*3/uL 0.0-0.7 [facility] Eosinophils/100 WBC Auto (Bl d)Ordered By: Art Bianchi on 05-15-2022 Eosinophils/100 WBC (Bld) 0.4 % . [facility] Erythrocyte distribution wid th Auto (RBC) [Ratio]Ordered By: Art Bianchi on 05-15-2022 Erythrocyte distribution width (RBC) [Ratio] 13.7 % 11.9-15.3 [facility] Estimated glomerular filtrat ion rate (GFR) non- AmericanOrdered By: Art Bianchi on 05-15-2022 GFR/1.73 sq M.predicted among non-blacks MDRD (S/P/Bld) [Vol rate/Area] > 60 mL/Min [facility] Globulin Calc (S) [Mass/Vol] Ordered By: Art Bianchi on 05-15-2022 Globulin (S) [Mass/Vol] 3.2 g/dL [facility] Hematocrit Auto (Bld) [Volum e fraction]Ordered By: Art Bianchi on 05-15-2022 Hematocrit (Bld) [Volume fraction] 41.0 % 36.0-46.0 [facility] Laboratory - Chemistry and C hemistry - challengeOrdered By: Art Bianchi on 05-15-2022 Lipase [Catalytic activity/Vol] 24.0 U/L 22-51 [facility] Laboratory - Hematology and Cell countsOrdered By: Art Bianchi on 05-15-2022 Nucleated RBC/100 WBC (Bld) [Ratio] 0.0 % 0-0.5 [facility] Lymphocytes Auto (Bld) [#/Vo l]Ordered By: Art Bianchi on 05-15-2022 Lymphocytes (Bld) [#/Vol] 2.6 10*3/uL 1.20-4.8 [facility] Lymphocytes/100 WBC Auto (Bl d)Ordered By: Art Bianchi on 05-15-2022 Lymphocytes/100 WBC (Bld) 18.4 % . [facility] MCH Auto (RBC) [Entitic mass ]Ordered By: Art Bianchi on 05-15-2022 MCH (RBC) [Entitic mass] 28.0 pg 25.0-35.0 [facility] MCHC Auto (RBC) [Mass/Vol]Or dered By: Art Bianchi on 05-15-2022 MCHC (RBC) [Mass/Vol] 33.3 g/dL 31.0-37.0 [facility] MCV Auto (RBC) [Entitic vol] Ordered By: Art Bianchi on 05-15-2022 MCV (RBC) [Entitic vol] 84.1 fL 78-102 [facility] Monocytes Auto (Bld) [#/Vol] Ordered By: Art Bianchi on 05-15-2022 Monocytes (Bld) [#/Vol] 1.2 10*3/uL 0.1-1.00 [facility] Monocytes/100 WBC Auto (Bld) Ordered By: Art Bianchi on 05-15-2022 Monocytes/100 WBC (Bld) 8.3 % . [facility] Neutrophils Auto (Bld) [#/Vo l]Ordered By: Art Bianchi on 05-15-2022 Neutrophils (Bld) [#/Vol] 10.2 10*3/uL 1.2-7.7 [facility] Neutrophils/100 WBC Auto (Bl d)Ordered By: Art Bianchi on 05-15-2022 Neutrophils/100 WBC (Bld) 72.7 % . [facility] No Panel InformationOrdered By: Art Bianchi on 05-15-2022 Estimated GFR () > 60 mL/Min [facility] Comment on above: GFR estimated refere nce range: According to KDOQI guidelines, <60 ml/min/1.73m2 is sufficient to diagnose a patient with chronic kidney disease. Pharmacy Creatinine Clearance (Chem 115.34 [facility] Platelet mean volume Auto (B ld) [Entitic vol]Ordered By: Art Bianchi on 05-15-2022 Platelet mean volume (Bld) [Entitic vol] 8.8 fL 6.3-10.7 [facility] Platelets Auto (Bld) [#/Vol] Ordered By: Art Bianchi on 05-15-2022 Platelets (Bld) [#/Vol] 315 10*3/uL 150-450 [facility] Protein [Mass/volume] in Ser um or PlasmaOrdered By: Art Bianchi on 05-15-2022 Protein [Mass/Vol] 7.9 g/dL 6.1-7.9 [facility] RBC Auto (Bld) [#/Vol]Ordere d By: Art Bianchi on 05-15-2022 RBC (Bld) [#/Vol] 4.88 10*6/uL 4.10-5.10 [facility] Serum or plasma alanine florez otransferase measurement without P-5'-P (enzymatic activiOrdered By: Art Bianchi on 05-15-2022 ALT No additional P-5'-P [Catalytic activity/Vol] 25 U/L 10-60 [facility] Serum or plasma albumin/glob ulin mass ratioOrdered By: Art Bianchi on 05-15-2022 Albumin/Globulin [Mass ratio] 1.5 {ratio} [facility] Serum or plasma alkaline justin sphatase measurement (enzymatic activity/volume)Ordered By: Art Bianchi on 05-15-2022 ALP [Catalytic activity/Vol] 66 U/L 32-92 [facility] Serum or plasma aspartate am inotransferase measurement (enzymatic activity/volume)Ordered By: Art Bianchi on 05-15-2022 AST [Catalytic activity/Vol] 33 U/L 10-42 [facility] Serum or plasma calcium tammy urement (mass/volume)Ordered By: Art Bianchi on 05-15-2022 Calcium [Mass/Vol] 10.1 mg/dL 8.2-10.2 [facility] Serum or plasma chloride judy surement (moles/volume)Ordered By: Art Bianchi on 05-15-2022 Chloride [Moles/Vol] 94 mmol/L 95-114 [facility] Serum or plasma glucose tammy urement (mass/volume)Ordered By: Art Bianchi on 05-15-2022 Glucose [Mass/Vol] 102 mg/dL 70-100 [facility] Comment on above: ADA recommended refe rence range Random Glucose Reference Range is dependent on time and content of last meal. Glucose of more than 200 mg/dL in a nonstressed, ambulatory subject supports the diagnosis of Diabetes Mellitus. Serum or plasma potassium me asurement (moles/volume)Ordered By: Art Bianchi on 05-15-2022 Potassium [Moles/Vol] 3.1 mmol/L 3.5-5.1 [facility] Serum or plasma sodium measu rement (moles/volume)Ordered By: Art Bianchi on 05-15-2022 Sodium [Moles/Vol] 135 mmol/L 136-146 [facility] Serum or plasma total biliru bin measurement (mass/volume)Ordered By: Art Bianchi on 05-15-2022 Bilirubin [Mass/Vol] 1.2 mg/dL 0.3-1.2 [facility] Serum or plasma total carbon dioxide measurement (moles/volume)Ordered By: Art Bianchi on 05-15-2022 CO2 [Moles/Vol] 22.2 mmol/L 22.0-30.0 [facility] Serum or plasma urea nitroge n measurement (mass/volume)Ordered By: Art Bianchi on 05-15-2022 Urea nitrogen [Mass/Vol] 23 mg/dL 9-23 [facility] Albumin [Mass/volume] in Ser um or PlasmaOrdered By: Art Bianchi on 05-13-2022 Albumin [Mass/Vol] 4.3 g/dL 3.2-5.5 [facility] Automated erythrocytes count in urine sediment (number/area)Ordered By: Art Bianchi on 05-13-2022 RBC Auto (Urine sed) [#/Area] 1-2 [HPF] 0-4 [facility] Automated leukocytes count i n urine sediment (number/area)Ordered By: Art Bianchi on 05-13-2022 WBC Auto (Urine sed) [#/Area] 1-2 [HPF] 0-4 [facility] Basophils Auto (Bld) [#/Vol] Ordered By: Art Bianchi on 05-13-2022 Basophils (Bld) [#/Vol] 0.1 10*3/uL 0.0-0.1 [facility] Basophils/100 WBC Auto (Bld) Ordered By: Art Bianchi on 05-13-2022 Basophils/100 WBC (Bld) 1.0 % . [facility] Bilirubin Test strip Ql (U)O rdered By: Art Bianchi on 05-13-2022 Bilirubin Ql (U) Negative Negative [facility] Blood hemoglobin measurement (mass/volume)Ordered By: Art Bianchi on 05-13-2022 Hemoglobin (Bld) [Mass/Vol] 13.7 g/dL 12.0-16.0 [facility] Blood leukocytes automated c ount (number/volume)Ordered By: Art Bianchi on 05-13-2022 WBC (Bld) [#/Vol] 10.4 10*3/uL 4.5-13.5 [facility] Color Auto (U)Ordered By: Adrian Bianchi on 05-13-2022 Color (U) Yellow Yellow [facility] Creatinine and Glomerular fi ltration rate.predicted panel (S/P/Bld)Ordered By: Art Bianchi on 05-13-2022 Creatinine [Mass/Vol] 0.76 mg/dL 0.44-1.03 [facility] Eosinophils Auto (Bld) [#/Vo l]Ordered By: Art Bianchi on 05-13-2022 Eosinophils (Bld) [#/Vol] 0.5 10*3/uL 0.0-0.7 [facility] Eosinophils/100 WBC Auto (Bl d)Ordered By: Art Bianchi on 05-13-2022 Eosinophils/100 WBC (Bld) 4.6 % . [facility] Erythrocyte distribution wid th Auto (RBC) [Ratio]Ordered By: Art Bianchi on 05-13-2022 Erythrocyte distribution width (RBC) [Ratio] 13.6 % 11.9-15.3 [facility] Estimated glomerular filtrat ion rate (GFR) non- AmericanOrdered By: Art Bianchi on 05-13-2022 GFR/1.73 sq M.predicted among non-blacks MDRD (S/P/Bld) [Vol rate/Area] > 60 mL/Min [facility] Globulin Calc (S) [Mass/Vol] Ordered By: Art Bianchi on 05-13-2022 Globulin (S) [Mass/Vol] 2.7 g/dL [facility] HCG ( test) IA.rapi d Ql (U)Ordered By: Art Bianchi on 05-13-2022 HCG ( test) Ql (U) Negative [facility] Hematocrit Auto (Bld) [Volum e fraction]Ordered By: Art Bianchi on 05-13-2022 Hematocrit (Bld) [Volume fraction] 40.5 % 36.0-46.0 [facility] Ketones Auto test strip (U) [Mass/Vol]Ordered By: Art Bianchi on 05-13-2022 Ketones (U) [Mass/Vol] Trace Negative [facility] - Hematology and Cell countsOrdered By: rAt Bianchi on 05-13-2022 Nucleated RBC/100 WBC (Bld) [Ratio] 0.0 % 0-0.5 [facility] - UrinalysisOrder ed By: Art Bianchi on 05-13-2022 Hyaline casts LM Ql (Urine sed) 0-8 [LPF] 0-8 [facility] Lymphocytes Auto (Bld) [#/Vo l]Ordered By: Art Bianchi on 05-13-2022 Lymphocytes (Bld) [#/Vol] 1.4 10*3/uL 1.20-4.8 [facility] Lymphocytes/100 WBC Auto (Bl d)Ordered By: Art Bianchi on 05-13-2022 Lymphocytes/100 WBC (Bld) 13.1 % . [facility] MCH Auto (RBC) [Entitic mass ]Ordered By: Art Bianchi on 05-13-2022 MCH (RBC) [Entitic mass] 28.6 pg 25.0-35.0 [facility] MCHC Auto (RBC) [Mass/Vol]Or dered By: Art Bianchi on 05-13-2022 MCHC (RBC) [Mass/Vol] 33.7 g/dL 31.0-37.0 [facility] MCV Auto (RBC) [Entitic vol] Ordered By: Art Bianchi on 05-13-2022 MCV (RBC) [Entitic vol] 84.7 fL 78-102 [facility] Monocytes Auto (Bld) [#/Vol] Ordered By: Art Bianchi on 05-13-2022 Monocytes (Bld) [#/Vol] 0.4 10*3/uL 0.1-1.00 [facility] Monocytes/100 WBC Auto (Bld) Ordered By: Art Bianchi on 05-13-2022 Monocytes/100 WBC (Bld) 4.2 % . [facility] Neutrophils Auto (Bld) [#/Vo l]Ordered By: Art Bianchi on 05-13-2022 Neutrophils (Bld) [#/Vol] 8.0 10*3/uL 1.2-7.7 [facility] Neutrophils/100 WBC Auto (Bl d)Ordered By: Art Bianchi on 05-13-2022 Neutrophils/100 WBC (Bld) 77.1 % . [facility] Nitrite Test strip Ql (U)Ord ered By: Art Bianchi on 05-13-2022 Nitrite Ql (U) Negative Negative [facility] No Panel InformationOrdered By: Art Bianchi on 05-13-2022 Estimated GFR () > 60 mL/Min [facility] Comment on above: GFR estimated refere nce range: According to KDOQI guidelines, <60 ml/min/1.73m2 is sufficient to diagnose a patient with chronic kidney disease. Pharmacy Creatinine Clearance (Chem 112.80 [facility] Platelet mean volume Auto (B ld) [Entitic vol]Ordered By: Art Bianchi on 05-13-2022 Platelet mean volume (Bld) [Entitic vol] 8.6 fL 6.3-10.7 [facility] Platelets Auto (Bld) [#/Vol] Ordered By: Art Bianchi on 05-13-2022 Platelets (Bld) [#/Vol] 264 10*3/uL 150-450 [facility] Protein Auto test strip (U) [Mass/Vol]Ordered By: Art Bianchi on 05-13-2022 Protein (U) [Mass/Vol] 30 mg/dL Negative [facility] Protein [Mass/volume] in Ser um or PlasmaOrdered By: Art Bianchi on 05-13-2022 Protein [Mass/Vol] 7.0 g/dL 6.1-7.9 [facility] RBC Auto (Bld) [#/Vol]Ordere d By: Art Bianchi on 05-13-2022 RBC (Bld) [#/Vol] 4.78 10*6/uL 4.10-5.10 [facility] Serum or plasma alanine florez otransferase measurement without P-5'-P (enzymatic activiOrdered By: Art Bianchi on 05-13-2022 ALT No additional P-5'-P [Catalytic activity/Vol] 19 U/L 10-60 [facility] Serum or plasma albumin/glob ulin mass ratioOrdered By: Art Bianchi on 05-13-2022 Albumin/Globulin [Mass ratio] 1.6 {ratio} [facility] Serum or plasma alkaline justin sphatase measurement (enzymatic activity/volume)Ordered By: Art Bianchi on 05-13-2022 ALP [Catalytic activity/Vol] 69 U/L 32-92 [facility] Serum or plasma aspartate am inotransferase measurement (enzymatic activity/volume)Ordered By: Art Bianchi on 05-13-2022 AST [Catalytic activity/Vol] 19 U/L 10-42 [facility] Serum or plasma calcium tammy urement (mass/volume)Ordered By: Art Bianchi on 05-13-2022 Calcium [Mass/Vol] 9.9 mg/dL 8.2-10.2 [facility] Serum or plasma chloride judy surement (moles/volume)Ordered By: Art Bianchi on 05-13-2022 Chloride [Moles/Vol] 107 mmol/L 95-114 [facility] Serum or plasma glucose tammy urement (mass/volume)Ordered By: Art Bianchi on 05-13-2022 Glucose [Mass/Vol] 140 mg/dL 70-100 [facility] Comment on above: ADA recommended refe rence range Random Glucose Reference Range is dependent on time and content of last meal. Glucose of more than 200 mg/dL in a nonstressed, ambulatory subject supports the diagnosis of Diabetes Mellitus. Serum or plasma potassium me asurement (moles/volume)Ordered By: Art Bianchi on 05-13-2022 Potassium [Moles/Vol] 3.7 mmol/L 3.5-5.1 [facility] Serum or plasma sodium measu rement (moles/volume)Ordered By: Art Bianchi on 05-13-2022 Sodium [Moles/Vol] 138 mmol/L 136-146 [facility] Serum or plasma total biliru bin measurement (mass/volume)Ordered By: Art Bianchi on 05-13-2022 Bilirubin [Mass/Vol] 0.5 mg/dL 0.3-1.2 [facility] Serum or plasma total carbon dioxide measurement (moles/volume)Ordered By: Art Bianchi on 05-13-2022 CO2 [Moles/Vol] 19.0 mmol/L 22.0-30.0 [facility] Serum or plasma urea nitroge n measurement (mass/volume)Ordered By: Art Bianchi on 05-13-2022 Urea nitrogen [Mass/Vol] 11 mg/dL 9-23 [facility] Specific gravity Auto test s trip (U) [Rel density]Ordered By: Art Bianchi on 05-13-2022 Specific gravity (U) [Rel density] 1.018 1.001-1.03 0 [facility] Squamous epithelial cells de tection in urine sediment by light microscopyOrdered By: Art Bianchi on 05-13-2022 Epithelial cells.squamous LM Ql (Urine sed) 20-30 [HPF] 0-2 [facility] Urine bacteria detection by automated methodOrdered By: Art Bianchi on 05-13-2022 Bacteria Auto Ql (U) 2+ None Seen [facility] Urine clarity by refractomet ry automatedOrdered By: Art Bianchi on 05-13-2022 Clarity Refractometry automated (U) Cloudy Clear [facility] Urine glucose measurement by automated test strip (mass/volume)Ordered By: Art Bianchi on 05-13-2022 Glucose Auto test strip (U) [Mass/Vol] Normal mg/dL Normal [facility] Urine hemoglobin detection b y automated test stripOrdered By: Art Bianchi on 05-13-2022 Hemoglobin Auto test strip Ql (U) Negative Negative [facility] Urine leukocyte esterase det ection by automated test stripOrdered By: Art Bianchi on 05-13-2022 Leukocyte esterase Auto test strip Ql (U) Negative Negative [facility] Urobilinogen Auto test strip (U) [Mass/Vol]Ordered By: Art Bianchi on 05-13-2022 Urobilinogen (U) [Mass/Vol] Normal mg/dL Normal [facility] pH Auto test strip (U)Ordere d By: Art Bianchi on 05-13-2022 pH (U) [pH] 5.0-9.0 [facility] CNPNon 10-10-2021 CNPN Telephone (OTOLMN) PILI PARIKH ([id number]) 3 F Date Time Provider Department 10/10/21 ROLANDO WOOTEN OTOLSONYA During your visit today, we recorded the following information about you: Rolando Wooten MD 10/10/2021 12:44 PM Signed Spoke with patient. Monospot positive. Waiting on CBC with diff - wbc 10. 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 Ordered further labs as somewhat atypical [...] [B27.80] Order(s):HEPATIC FUNCTION PNL [SQHFP] Order #: [id number] FUTURE HIV 1 2 COMBO(AG/AB),WITH REFLEX TO DIFFERENTIATION [SQHIV12] Order #: [id number] FUTURE CMV IGG/IGM TITER [0440560] Order #: [id number] FUTURE LISSA-HENSON VCA IGM [SQEBVM] Order #: [id number] FUTURE EBV EA AB IGG [[id number]] Order #: [id number] FUTURE LISSA-HENSON VCA IGG [SQEBVG] Order #: [id number] FUTURE CMV IGG/IGM TITER [[id number]] Order #: [id number] EBV EA AB IGG [[id number]] Order #: [id number] Prescriptions as of 10/27/2021 - HYDROcodone-acetaminophen (HYCET) [...] ROLANDO WOOTEN on 10/10/21 Normal [facility] AFB Cult and Stainon 021 AFB Cult and Stain Sp. Request/Comment: - Specimen received in sterile container. Smear Result - No acid fast bacilli seen by fluorochrome stain Culture Result - No Acid Fast Bacilli isolated after 46 days Normal [facility] Comment on above: Performed By: #### A FC #### [facility] [address] [place], [place] [address] Anaerobe Cultureon 1 Anaerobe Culture Sp. Request/Comment: - Specimen received in sterile container. Culture Result - Few Mixed anaerobic jori --> ABNORMAL ALERT No Bacteroides fragilis group isolated. No Clostridium perfringens isolated Critically abnormal [facility] Comment on above: Performed By: #### A NACUL #### [facility] [employer] [address] [place], [place] [address] Basic Metabolic Panlon 10-09 Anion gap [Moles/Vol] 14 mmol/L Normal 9-18 [facility] Comment on above: Result Comment: (NOT E) Reference ranges for this patient's age group have not been established. These reference ranges reflect verified or established ranges for the adult population. Interpret these ranges with caution using the clinical context and additional reference resources. Performed By: #### C BCDIF, BMP, MONOLX #### [facility] [employer] [address] [place], [place] [address] Calcium [Mass/Vol] 9.4 mg/dL Normal 8.4-10.2 [facility] Comment on above: Performed By: #### C BCDIF, BMP, MONOLX #### [facility] [employer] [address] [place], [place] [address] Chloride [Moles/Vol] 99 mmol/L Normal 97-105 [facility] Comment on above: Result Comment: (NOT E) Reference ranges for this patient's age group have not been established. These reference ranges reflect verified or established ranges for the adult population. Interpret these ranges with caution using the clinical context and additional reference resources. Performed By: #### C BCCHRISTEL SANDOVAL, MONOLX #### [facility] [employer] [address] [place], [place] [address] CO2 [Moles/Vol] 23 mmol/L Normal 22-30 [facility] Comment on above: Result Comment: (NOT E) Reference ranges for this patient's age group have not been established. These reference ranges reflect verified or established ranges for the adult population. Interpret these ranges with caution using the clinical context and additional reference resources. Performed By: #### C BCCHRISTEL SANDOVAL, MONOLX #### [facility] [employer] [address] [place], [place] [address] Creatinine [Mass/Vol] 0.64 mg/dL Normal 0.58-0.96 [facility] Comment on above: Result Comment: Refe rence ranges for this patient's age group have not been established. These reference ranges reflect verified or established ranges for the adult population. Interpret these ranges with caution using the clinical context and additional reference resources. Performed By: #### C CHRISTEL WHITESIDE, MONOLX #### [facility] [employer] [address] [place], [place] [address] eGFR-Ped. Factor 0.65 Normal [facility] Comment on above: Result Comment: eGFR [...] Performed By: #### C BCSAULFCHRISTEL, MONOLX #### [facility] [employer] [address] [place], [place] [address] Glucose [Mass/Vol] 89 mg/dL Normal 74-99 [facility] Comment on above: Result Comment: Refe rence ranges for this patient's age group have not been established. These reference ranges reflect verified or established ranges for the adult population. Interpret these ranges with caution using the clinical context and additional reference resources. The [place] [employer] (ADA) provides guidance for cutoff [...] Standards of Medical Care in Diabetes 2016, [place] [employer]. Diabetes Care. 2016.39(Suppl 1). Performed By: #### C BCDIF, BMP, MONOLX #### [facility] [employer] [address] [place], [place] [address] Potassium [Moles/Vol] 4.4 mmol/L Normal 3.7-5.1 [facility] Comment on above: Result Comment: (NOT E) Reference ranges for this patient's age group have not been established. These reference ranges reflect verified or established ranges for the adult population. Interpret these ranges with caution using the clinical context and additional reference resources. Performed By: #### C BCDIF, BMP, MONOLX #### [facility] [employer] [address] [place], [place] [address] Sodium [Moles/Vol] 136 mmol/L Normal 136-144 [facility] Comment on above: Result Comment: (NOT E) Reference ranges for this patient's age group have not been established. These reference ranges reflect verified or established ranges for the adult population. Interpret these ranges with caution using the clinical context and additional reference resources. Performed By: #### C BCDIF, BMP, MONOLX #### [facility] [employer] [address] [place], [place] [address] Urea nitrogen [Mass/Vol] 8 mg/dL Normal 5-18 [facility] Comment on above: Performed By: #### C BCDIF, BMP, MONOLX #### [facility] [employer] [address] [place] [address] CBC and Differentialon 10-09 Abs Baso 0.11 k/uL High <0.11 [facility] Comment on above: Performed By: #### C BCDIF, BMP, MONOLX #### [place] [address] [place] [phone] Abs Lym 4.27 K/uL High 1.00-4.00 [facility] Comment on above: Performed By: #### C BCDIF, BMP, MONOLX #### [place] [phone] Abs [place] 1.10 k/uL High <0.87 [facility] Comment on above: Performed By: #### C BCDIF, BMP, MONOLX #### [place] [address] [place] [phone] Abs Neut 5.37 k/uL Normal 1.45-7.50 [facility] Comment on above: Performed By: #### C BCDIF, BMP, MONOLX #### [place] [address] [place] [phone] Basophils/100 WBC (Bld) 1 % Normal [facility] Comment on above: Performed By: #### C BCDIF, BMP, MONOLX #### [place] [address] [place] [address] Diff Comments SEE COMMENT Normal [facility] Comment on above: Result Comment: Plat elet estimate adequate Performed By: #### C BCDIF, BMP, MONOLX #### [place] [address] [place] [address] Eosinophils (Bld) [#/Vol] 0.11 10*3/uL Normal <0.46 [facility] Comment on above: Performed By: #### C BCDIF, BMP, MONOLX #### [facility] [address] [place], [place] [address] Eosinophils/100 WBC (Bld) 1 % Normal [facility] Comment on above: Performed By: #### C BCDIF, BMP, MONOLX #### [place] [address] [place], [place] [address] Erythrocyte distribution width (RBC) [Ratio] 13.4 % Normal 11.5-15.0 [facility] Comment on above: Performed By: #### C BCDIF, BMP, MONOLX #### [place] [address] [place], [place] [address] Hematocrit (Bld) [Volume fraction] 39.8 % Normal 36.0-46.0 [facility] Comment on above: Performed By: #### C BCDIF, BMP, MONOLX #### [place] [address] [place], [place] [address] Hemoglobin (Bld) [Mass/Vol] 12.5 g/dL Normal 11.5-15.5 [facility] Comment on above: Performed By: #### C BCDIF, BMP, MONOLX #### [facility] [address] [place], [place] [address] Lymphocytes/100 WBC (Bld) 39 % Normal [facility] Comment on above: Performed By: #### C BCDIF, BMP, MONOLX #### [facility] [address] [place], [place] [address] MCH 27.4 pG Normal 26.0-34.0 [facility] Comment on above: Performed By: #### C BCDIF, BMP, MONOLX #### [facility] [address] [place], [place] [address] MCHC (RBC) [Mass/Vol] 31.4 g/dL Normal 30.5-36.0 [facility] Comment on above: Performed By: #### C BCDIF, BMP, MONOLX #### [facility] [address] [place], [place] [address] MCV (RBC) [Entitic vol] 87.3 fL Normal 80.0-100.0 [facility] Comment on above: Performed By: #### C BCDIF, BMP, MONOLX #### [facility] [address] [place], [place] [address] Monocytes/100 WBC (Bld) 10 % Normal [facility] Comment on above: Performed By: #### C BCDIF, BMP, MONOLX #### [place] [address] [place], [place] [address] Neutrophils/100 WBC (Bld) 49 % Normal [facility] Comment on above: Performed By: #### C BCDIF, BMP, MONOLX #### [place] [address] [place], [place] [address] Platelet mean volume (Bld) [Entitic vol] 10.3 fL Normal 9.0-12.7 [facility] Comment on above: Performed By: #### C BCDIF, BMP, MONOLX #### [place] [address] [place], [place] [address] Platelets (Bld) [#/Vol] 218 10*3/uL Normal 150-400 [facility] Comment on above: Performed By: #### C BCDIF, BMP, MONOLX #### [facility] [address] [place], [place] [address] RBC (Bld) [#/Vol] 4.56 10*6/uL Normal 3.90-5.20 [facility] Comment on above: Performed By: #### C BCDIF, BMP, MONOLX #### [facility] [address] [place], [place] [address] Red Cell Morph SEE COMMENT Normal [facility] Comment on above: Result Comment: Slig ht Polychromasia Few Ovalocytes Performed By: #### C BCDIF, BMP, MONOLX #### [facility] [employer] [address] [place], [place] [address] WBC (Bld) [#/Vol] 10.95 10*3/uL Normal 3.70-11.00 [facility] Comment on above: Performed By: #### C BCDIF, BMP, MONOLX #### [facility] [address] [place], [place] [address] CNOVon 10-09-2021 CNOV Office Visit (OTOLMN ) PILI PARIKH ([id number]) 3 F Date Time Provider Department 10/09/21 [...] Rolando Wooten MD 11/13/2021 1:09 AM Signed [facility] This consult was requested by [...] (more content not included)... Normal [facility] Fungal Cultureon 10-09-2021 Fungal Culture Sp. Request/Comment: - Specimen received in sterile container. Culture Result - No Fungus isolated after 28 days Normal [facility] Comment on above: Performed By: #### F CUL #### [facility] [employer] [address] [place], [place] [address] [place] Slide Teston 10-09-2021 [place] Slide Test Positive Critically abnormal Negative [facility] Comment on above: Performed By: #### C BCDIF, BMP, MONOLX #### [facility] [employer] [address] [place], [place] [id number] Wound Culture/Stainon 2020 Wound Culture/Stain Sp. Request/Comment: - Swab Smear Result - Rare Gram positive cocci --> ABNORMAL ALERT Rare Polymorphonuclear leukocytes Culture Result - Rare Mixed oral jori For wound culture, tissue or aspirates are superior to swab specimens. If a swab must be used, eSwab is preferred. Critically abnormal [facility] Comment on above: Performed By: ####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 16Dec2017; Last Rx:16Dec2017 OrderedQvar 80 MCG/ACT Inhalation Aerosol Solution; INHALE TWO PUFFS BY MOUTH TWICEA DAY WITH A SPACER;Therapy: 23Sep2014 to (Last Rx:[id number]) Requested for: [id number] OrderedTri-Sprintec 0.18/0.215/0.25 MG-35 MCG Oral Tablet;Therapy: [id number] to RecordedUnspecified Medication; Vitamin B2-400 Oral Capsule1 capsule orally once a day;Therapy: (Recorded:[id number]) to RecordedVitamin D 1000 UNIT Oral Tablet; TAKE 1 TABLET DAILY;Therapy: 14Apr2018 to (Evaluate:[id number]) Requested for: 18Apr2018; LastRx:18Apr2018 Ordered Signatures Electronically signed by : Mere Simpson APRN-JIMMYS; Jun 05 2018 10:46AM EST (Author) Normal [facility] Discharge Summaryon 08-24-20 Discharge Summary Send Summary:Dischar ge Summary Providers:Provider Role Provider Name? Referring Dali Mcintosh? Attending Adeola Colon? Primary Zac Daniel Recipients: Adeola Colon MD Baez-Socorro, Virginia M, MD Bumagina, Natalie, MD - [phone] [[phone]]Dali Mcintosh MD - [id number] [Preferred]Discharge:Summar y:Admission Date: .09-Aug-2017 21:44:00Discharge Date: [id number] Physician at Discharge: Adeola Colon NAdmission Reason: vomiting, hematemesisFinal Discharge Diagnoses: Functional abdominal painProcedures: null Aug 11, 2017Condition at Discharge: SatisfactoryDisposition at Discharge: .HomeVital Signs: T P R BP LoC6Gwayc 36.6 70 18 126/84 98%Date/Time 08/24 8:58 [...] months, but worse recently. She was admitted [facility] last month for the vomiting. [...] Saturday September 02, 2017 at3:30 pm. Location: [place] [address] Yxtkte-Up Appointment 02: Physician/Dept/Service: Neurology: Caty Simpson Call to Schedule in: 1st available Scheduled Date/Time: 31-Aug-2017 14:00 Location: [address] [place] [address] Jmtcpa-Up Appointment 03: Physician/Dept/Service: ENT (ear, nose, and [...] and physical exam or was physicallypresent for peacokc and critical portions performed by the resident/fellow. [...] 24-Aug-2017 23:59 by Adeola Colon () Normal [facility] PD ABDOMEN, [...] gastric body.Electronically signed by: PHYSICIAN CECILIA Normal [facility] NR MRI [...] Chiari malformation. The study was interpreted at [facility].Electronicall y signed by: SABAS GARCIA MD Normal [facility] Surgical Pathology Depar tmenton 08-11-2017 [facility] Surgical Pathology Department Name PILI PARIKH Pathologist: [...] on above: Performed By: #### T 4FRE ####[facility] [place] [address] AMYLASEon 08-10-2017 Amylase enzyme act/vol 19 U/L Normal 18 - 76 [facility] Comment on above: Performed By: #### V TDOH ####[facility] [place] [address] C-REACTIVE PROTEINon 017 CRP mass conc 0.34 mg/dL Normal [facility] Comment on above: Result Comment: REF VALUE< 1.00 Performed By: #### V TDOH ####[facility] [place] [address] CBC AND DIFFERENTIALon 08-10 % AUTOMATED IMMATURE GRAN 0.3 % Normal 0.0 - 1.0 [facility] Comment on above: Result Comment: Perc ent differential counts (%) should be interpreted in the context of the absolute cell counts (cells/L). Performed By: #### V TDOH ####[facility] [place] [address] % NEUTROPHIL 52.9 % Normal 33.0 - 69.0 [facility] Comment on above: Performed By: #### V TDOH ####[facility] [place] [address] Basophils/100 WBC Auto (Bld) 0.4 % Normal 0.0 - 1.0 [facility] Comment on above: Performed By: #### V TDOH ####[facility] [place] [address] Basophils/100 WBC Auto (Bld) 0.03 x10E9/L Normal 0.00 - 0.10 [facility] Comment on above: Performed By: #### V TDOH ####[facility] [place] [address] Eosinophils Auto #/vol (Bld) 0.29 10*3/uL Normal 0.00 - 0.70 [facility] Comment on above: Performed By: #### V TDOH ####[facility] [place] [address] Eosinophils/100 WBC Auto (Bld) 4.2 % Normal 0.0 - 5.0 [facility] Comment on above: Performed By: #### V TDOH ####[id number] [place] [address] Erythrocyte distribution width Auto Ratio (RBC) 14.1 % Normal 11.5 - 14.5 [facility] Comment on above: Performed By: #### V TDOH ####[facility] [place] [address] Hematocrit Auto Volume Fraction (Bld) 35.4 % Low 36.0 - 46.0 [facility] Comment on above: Performed By: #### V TDOH ####[facility] [place] [address] Hemoglobin mass conc (Bld) 11.0 g/dL Low 12.0 - 16.0 [facility] Comment on above: Performed By: #### V TDOH ####[facility] [place] [address] Lymphocytes Auto #/vol (Bld) 2.33 10*3/uL Normal 1.80 - 4.80 [facility] Comment on above: Performed By: #### V TDOH ####[id number] [place] [address] Lymphocytes/100 WBC Auto (Bld) 33.8 % Normal 28.0 - 48.0 [facility] Comment on above: Performed By: #### V TDOH ####[id number] [place] [address] MCHC Auto mass conc (RBC) 31.1 g/dL Normal 31.0 - 37.0 [facility] Comment on above: Performed By: #### V TDOH ####[id number] [place] [address] MCV Auto Entitic volume (RBC) 80 fL Normal 78 - 102 [facility] Comment on above: Performed By: #### V TDOH ####[id number] [place] [address] Monocytes Auto #/vol (Bld) 0.58 10*3/uL Normal 0.10 - 1.00 [facility] Comment on above: Performed By: #### V TDOH ####[facility] [place] [address] Monocytes/100 WBC Auto (Bld) 8.4 % Normal 3.0 - 9.0 [facility] Comment on above: Performed By: #### V TDOH ####[facility] [place] [address] Neutrophils Auto #/vol (Bld) 3.65 10*3/uL Normal 1.20 - 7.70 [facility] Comment on above: Performed By: #### V TDOH ####[facility] [place] [address] Nucleated RBC/100 WBC Ratio (Bld) 0.0 /100 WBC Normal 0.0-0.0 [facility] Comment on above: Performed By: #### V TDOH ####[facility] [place] [address] Platelets Auto #/vol (Bld) 256 10*3/uL Normal 150 - 400 [facility] Comment on above: Performed By: #### V TDOH ####[id number] [place] [address] RBC Auto #/vol (Bld) 4.40 x10E12/L Normal 4.10 - 5.20 [facility] Comment on above: Performed By: #### V TDOH ####[id number] [place] [address] WBC Auto #/vol (Bld) 6.9 10*3/uL Normal 4.5 - 13.5 [facility] Comment on above: Performed By: #### V TDOH ####[id number] [place] [address] CELIAC DISEASE SEROLOGY PANE Tushar 08-10-2017 GLIADIN [...] Celiac Disease. Performed By: #### T 4FRE ####[id number] [place] [address] GLIADIN ABS, IGG <1 Normal 0 - 14 [facility] Comment on above: Result Comment: Fals e negative Deamidated Gliadin Peptide Antibody, IgG results can occur in patients already adhering to a gluten-free diet. Tissue Transglutaminase Antibody, IgA is the preferred test for screening patients with suspected Celiac Disease. Performed By: #### T 4FRE ####[id number] [place] [address] TTG AB,IGA <1 Normal 0 - 14 [facility] Comment on above: Result Comment: Loni ac disease is unlikely. False negative Tissue Transglutaminase Antibody, IgA results can occur in approximately 10% of patients with celiac disease, patients already adhering to a gluten-free diet, or patients with IgA deficiency. Performed By: #### T 4FRE ####[id number] [place] [address] TTG AB,IGG <1 Normal 0 - 14 [facility] Comment on above: Result Comment: Fals e negative Tissue Transglutaminase Antibody, IgG results can occur in patients already adhering to a gluten-free diet. Tissue Transglutaminase Antibody, IgA is the preferred test for screening patients with suspected Celiac Disease. Performed By: #### T 4FRE ####[place] [address] [place] [address] COAGULATION SCREENon 017 aPTT Coag time (Bld) 28 s Normal 25 - 36 [facility] Comment on above: Result Comment: THE APTT IS NO LONGER USED FOR MONITORING UNFRACTIONATED HEPARIN THERAPY. FOR MONITORING HEPARIN THERAPY, USE THE HEPARIN ASSAY. Performed By: #### V TDOH ####[id number] [place] [address] INR Coag RelTime (PPP) 1.1 {INR} Normal 0.9 - 1.1 [facility] Comment on above: Performed By: #### V TDOH ####[id number] [place] [address] Prothrombin time (PT) Coag time (PPP) 12.1 s Normal 9.8 - 12.7 [facility] Comment on above: Performed By: #### V TDOH ####[id number] [place] [address] HEPATIC FUNCTION PANELon ALP enzyme act/vol 128 U/L Normal 52 - 239 [facility] Comment on above: Performed By: #### V TDOH ####[id number] [place] [address] ALT enzyme act/vol 39 U/L High 3 - 28 [facility] Comment on above: Result Comment: Christen ents treated with Sulfasalazine may generate falsely decreased results for ALT. Performed By: #### V TDOH ####[id number] [place] [address] AST enzyme act/vol 27 U/L High 9 - 24 [facility] Comment on above: Performed By: #### V TDOH ####[id number] [place] [address] Bilirubin mass conc 0.4 mg/dL Normal 0.0 - 0.9 [facility] Comment on above: Performed By: #### V TDOH ####[id number] [place] [address] Bilirubin.direct mass conc 0.1 mg/dL Normal 0.0 - 0.3 [facility] Comment on above: Performed By: #### V TDOH ####[id number] [place] [address] Protein mass conc 5.7 g/dL Low 6.2 - 7.7 [facility] Comment on above: Performed By: #### V TDOH ####[id number] [place] [address] LIPASEon 08-10-2017 Lipase enzyme act/vol 16 U/L Normal 9 - 82 [facility] Comment on above: Result Comment: Shanda puncture immediately after or during the administration of Metamizole may lead to falsely low results. Testing should be performed immediately prior to Metamizole dosing. Performed By: #### V TDOH ####[id number] [place] [address] RENAL FUNCTION PANELon 08-10 Albumin mass conc 3.8 g/dL Normal 3.4 - 5.0 [facility] Comment on above: Performed By: #### T 4FRE ####[id number] [place] [address] Performed By: #### V TDOH ####[id number] [place] [address] Anion gap 3 molar conc 13 mmol/L Normal 10 - 30 [facility] Comment on above: Performed By: #### T 4FRE ####[id number] [place] [address] Calcium mass conc 9.2 mg/dL Normal 8.5 - 10.7 [facility] Comment on above: Performed By: #### T 4FRE ####[id number] [place] [address] Chloride molar conc 106 mmol/L Normal 98 - 107 [facility] Comment on above: Performed By: #### T 4FRE ####[id number] [place] [address] Creatinine mass conc 0.56 mg/dL Normal 0.50 - 1.00 [facility] Comment on above: Performed By: #### T 4FRE ####[id number] [place] [address] Glucose mass conc 106 mg/dL High 74 - 99 [facility] Comment on above: Performed By: #### T 4FRE ####[id number] [place] [address] HCO3 molar conc (Bld) 26 mmol/L Normal 18 - 27 [facility] Comment on above: Performed By: #### T 4FRE ####[id number] [place] [address] Phosphate mass conc 4.3 mg/dL Normal 3.0 - 5.4 [facility] Comment on above: Result Comment: The performance characteristics of phosphorus testing in heparinized plasma have been validated by the individual laboratory site where testing is performed. Testing on heparinized plasma is not approved by the FDA; however, such approval is not necessary. Performed By: #### T 4FRE ####[id number] [place] [address] Potassium molar conc 3.9 mmol/L Normal 3.5 - 5.3 [facility] Comment on above: Performed By: #### T 4FRE ####[id number] [place] [address] Sodium molar conc 141 mmol/L Normal 136 - 145 [facility] Comment on above: Performed By: #### T 4FRE ####[id number] [place] [address] Urea nitrogen mass conc 11 mg/dL Normal 6 - 23 [facility] Comment on above: Performed By: #### T 4FRE ####[id number] [place] [address] AMYLASEon 08-09-2017 Amylase enzyme act/vol 22 U/L Normal 18 - 76 [facility] Comment on above: Performed By: #### A MY ####[id number] [place] [address] C-REACTIVE PROTEINon 017 CRP mass conc 0.36 mg/dL Normal [facility] Comment on above: Result Comment: REF VALUE< 1.00 Performed By: #### C RP ####[id number] [place] [address] CBC AND DIFFERENTIALon 08-09 % AUTOMATED IMMATURE GRAN 0.3 % Normal 0.0 - 1.0 [facility] Comment on above: Result Comment: Perc ent differential counts (%) should be interpreted in the context of the absolute cell counts (cells/L). Performed By: #### C BCDF ####[id number] [place] [address] % NEUTROPHIL 60.6 % Normal 33.0 - 69.0 [facility] Comment on above: Performed By: #### C BCDF ####[id number] [place] [address] Basophils/100 WBC Auto (Bld) 0.04 x10E9/L Normal 0.00 - 0.10 [facility] Comment on above: Performed By: #### C BCDF ####[id number] [place] [address] Basophils/100 WBC Auto (Bld) 0.5 % Normal 0.0 - 1.0 [facility] Comment on above: Performed By: #### C BCDF ####[id number] [place] [address] Eosinophils Auto #/vol (Bld) 0.28 10*3/uL Normal 0.00 - 0.70 [facility] Comment on above: Performed By: #### C BCDF ####[id number] [place] [address] Eosinophils/100 WBC Auto (Bld) 3.6 % Normal 0.0 - 5.0 [facility] Comment on above: Performed By: #### C BCDF ####[id number] [place] [address] Erythrocyte distribution width Auto Ratio (RBC) 14.4 % Normal 11.5 - 14.5 [facility] Comment on above: Performed By: #### C BCDF ####[id number] [place] [address] Hematocrit Auto Volume Fraction (Bld) 37.7 % Normal 36.0 - 46.0 [facility] Comment on above: Performed By: #### C BCDF ####[id number] [place] [address] Hemoglobin mass conc (Bld) 11.5 g/dL Low 12.0 - 16.0 [facility] Comment on above: Performed By: #### C BCDF ####[id number] [place] [address] Lymphocytes Auto #/vol (Bld) 2.20 10*3/uL Normal 1.80 - 4.80 [facility] Comment on above: Performed By: #### C BCDF ####[id number] [place] [address] Lymphocytes/100 WBC Auto (Bld) 28.2 % Normal 28.0 - 48.0 [facility] Comment on above: Performed By: #### C BCDF ####[id number] [place] [address] MCHC Auto mass conc (RBC) 30.5 g/dL Low 31.0 - 37.0 [facility] Comment on above: Performed By: #### C BCDF ####[id number] [place] [address] MCV Auto Entitic volume (RBC) 82 fL Normal 78 - 102 [facility] Comment on above: Performed By: #### C BCDF ####[id number] [place] [address] Monocytes Auto #/vol (Bld) 0.53 10*3/uL Normal 0.10 - 1.00 [facility] Comment on above: Performed By: #### C BCDF ####[id number] [place] [address] Monocytes/100 WBC Auto (Bld) 6.8 % Normal 3.0 - 9.0 [facility] Comment on above: Performed By: #### C BCDF ####[id number] [place] [address] Neutrophils Auto #/vol (Bld) 4.73 10*3/uL Normal 1.20 - 7.70 [facility] Comment on above: Performed By: #### C BCDF ####[id number] [place] [address] Nucleated RBC/100 WBC Ratio (Bld) 0.0 /100 WBC Normal 0.0-0.0 [facility] Comment on above: Performed By: #### C BCDF ####[id number] [place] [address] Platelets Auto #/vol (Bld) 290 10*3/uL Normal 150 - 400 [facility] Comment on above: Performed By: #### C BCDF ####[id number] [place] [address] RBC Auto #/vol (Bld) 4.62 x10E12/L Normal 4.10 - 5.20 [facility] Comment on above: Performed By: #### C BCDF ####[id number] [place] [address] WBC Auto #/vol (Bld) 7.8 10*3/uL Normal 4.5 - 13.5 [facility] Comment on above: Performed By: #### C BCDF ####[id number] [place] [address] COAGULATION SCREENon 017 aPTT Coag time (Bld) 29 s Normal 25 - 36 [facility] Comment on above: Result Comment: THE APTT IS NO LONGER USED FOR MONITORING UNFRACTIONATED HEPARIN THERAPY. FOR MONITORING HEPARIN THERAPY, USE THE HEPARIN ASSAY. Performed By: #### V TDOH ####[id number] [place] [address] INR Coag RelTime (PPP) 1.2 {INR} High 0.9 - 1.1 [facility] Comment on above: Performed By: #### V TDOH ####[place] [address] [place] [address] Prothrombin time (PT) Coag time (PPP) 12.9 s High 9.8 - 12.7 [facility] Comment on above: Performed By: #### V TDOH ####[id number] [place] [address] ESR-WESTERGRENon 08-09-2017 ESR-WESTERGREN 8 mm/h Normal 0 - 13 [facility] Comment on above: Performed By: #### V TDOH ####[id number] [place] [address] GGTon 08-09-2017 GGT 20 U/L Normal 5 - 20 [facility] Comment on above: Performed By: #### G GT ####[id number] [place] [address] HEMOGLOBIN A1Con 08-09-2017 Hemoglobin A1c/Hemoglobin.total mass fraction (Bld) 5.6 % Normal [facility] Comment on above: Result Comment: Diag nosis of Diabetes-Adults Non-Diabetic: < or = 5.6% Increased risk for developing diabetes: 5.7-6.4% Diagnostic of diabetes: > or = 6.5%. Monitoring of Diabetes Age (y) Therapeutic Goal (%) Adults: >18 <7.0 Pediatrics: 13-18 <7.5 7-12 <8.0 0- 6 7.5-8.5 [employer]. Diabetes Care 33(S1), Nov 2009. Performed By: #### V TDOH ####[id number] [place] [address] HEPATIC FUNCTION PANELon ALP enzyme act/vol 133 U/L Normal 52 - 239 [facility] Comment on above: Performed By: #### H EPFP ####[id number] [place] [address] ALT enzyme act/vol 41 U/L High 3 - 28 [facility] Comment on above: Result Comment: Christen ents treated with Sulfasalazine may generate falsely decreased results for ALT. Performed By: #### H EPFP ####[id number] [place] [address] AST enzyme act/vol 25 U/L High 9 - 24 [facility] Comment on above: Performed By: #### H EPFP ####[id number] [place] [address] Bilirubin mass conc 0.3 mg/dL Normal 0.0 - 0.9 [facility] Comment on above: Performed By: #### H EPFP ####[id number] [place] [address] Bilirubin.direct mass conc 0.1 mg/dL Normal 0.0 - 0.3 [facility] Comment on above: Performed By: #### H EPFP ####[id number] [place] [address] Protein mass conc 6.7 g/dL Normal 6.2 - 7.7 [facility] Comment on above: Performed By: #### H EPFP ####[id number] [place] [address] IRON + TIBCon 08-09-2017 % SATURATION 13 % Low 25 - 45 [facility] Comment on above: Performed By: #### I RONT ####[id number] [place] [address] Iron mass conc 53 ug/dL Normal 23 - 138 [facility] Comment on above: Performed By: #### I RONT ####[id number] [place] [address] TIBC 407 ug/dL Normal 240 - 445 [facility] Comment on above: Performed By: #### I RONT ####[id number] [place] [address] LIPASEon 08-09-2017 Lipase enzyme act/vol 17 U/L Normal 9 - 82 [facility] Comment on above: Result Comment: Shanda puncture immediately after or during the administration of Metamizole may lead to falsely low results. Testing should be performed immediately prior to Metamizole dosing. Performed By: #### L IPAS ####[id number] [place] [address] RENAL FUNCTION PANELon 08-09 Albumin mass conc 4.3 g/dL Normal 3.4 - 5.0 [facility] Comment on above: Performed By: #### V TDOH ####[facility] [id number] [place] [address] Performed By: #### H EPFP ####[facility] [id number] [place] [address] Anion gap 3 molar conc 13 mmol/L Normal 10 - 30 [facility] Comment on above: Performed By: #### V TDOH ####[facility] [id number] [place] [address] Calcium mass conc 9.5 mg/dL Normal 8.5 - 10.7 [facility] Comment on above: Performed By: #### V TDOH ####[facility] [id number] [place] [address] Chloride molar conc 105 mmol/L Normal 98 - 107 [facility] Comment on above: Performed By: #### V TDOH ####[facility] [id number] [place] [address] Creatinine mass conc 0.50 mg/dL Normal 0.50 - 1.00 [facility] Comment on above: Performed By: #### V TDOH ####[facility] [id number] [place] [address] Glucose mass conc 83 mg/dL Normal 74 - 99 [facility] Comment on above: Performed By: #### V TDOH ####[facility] [id number] [place] [address] HCO3 molar conc (Bld) 27 mmol/L Normal 18 - 27 [facility] Comment on above: Performed By: #### V TDOH ####[facility] [id number] [place] [address] Phosphate mass conc 4.1 mg/dL Normal 3.0 - 5.4 [facility] Comment on above: Result Comment: The performance characteristics of phosphorus testing in heparinized plasma have been validated by the individual laboratory site where testing is performed. Testing on heparinized plasma is not approved by the FDA; however, such approval is not necessary. Performed By: #### V TDOH ####[facility] [id number] [place] [address] Potassium molar conc 4.1 mmol/L Normal 3.5 - 5.3 [facility] Comment on above: Performed By: #### V TDOH ####[facility] [id number] [place] [address] Sodium molar conc 141 mmol/L Normal 136 - 145 [facility] Comment on above: Performed By: #### V TDOH ####[facility] [id number] [place] [address] Urea nitrogen mass conc 11 mg/dL Normal 6 - 23 [facility] Comment on above: Performed By: #### V TDOH ####[facility] [id number] [place] [address] THYROXINE,FREEon 08-09-2017 THYROXINE,FREE 1.08 ng/dL Normal 0.78 - 1.48 [facility] Comment on above: Result Comment: Thyr oxine Free testing is performed using different testing methodology at [facility] than at other [facility]. Direct result comparisons should only be made within the same method.. Patients receiving more than 5 mg/day of biotin may have interference in test results. A sample should be taken no sooner than eight hours after previous dose. Contact [phone] for additional information. Performed By: #### T 4FRE ####[facility] [id number] [id number] TSHon 08-09-2017 Thyrotropin Qn 1.71 m[IU]/L Normal 0.44 - 3.98 [facility] Comment on above: Result Comment: TSH testing is performed using different testing methodology at [facility] than at other [facility]. Direct result comparisons should only be made within the same method.. Patients receiving more than 5 mg/day of biotin may have interference in test results. A sample should be taken no sooner than eight hours after previous dose. Contact [phone] for additional information. Performed By: #### T SH2 ####[facility] [id number] [place] [address] VITAMIN D, 25-HYDROXYon 07-29 VITAMIN D, 25-HYDROXY 28 ng/mL Abnormal [facility] Comment on above: Result Comment: .DEF ICIENCY: < 20 NG/MLINSUFFICIENCY: 20-29 NG/MLOPTIMUM LEVEL: 30-80 NG/MLPOSSIBLE TOXICITY: > 80 NG/MLTHIS ASSAY ACCURATELY QUANTIFIES THE SUM OFVITAMIN D3, 25-HYDROXY AND VIT D2,25-HYDROXY. Performed By: #### V TDOH ####[facility] [id number] [place] [address] Vital Signs Date Time Vital Sign Value Performing Clinician Facility 01-16-2025 20:30-0500 Heart rate 51 /min [facility]3]aries Bermudez [facility] 01-16-2025 20:30-0500 Respiratory rate 12 /min [facility] 01-16-2025 20:30-0500 SaO2% (BldA) [Mass fraction] 98 % [facility] 01-16-2025 19:30-0500 Diastolic blood pressure 105 mm[Hg] [facility] 01-16-2025 19:30-0500 Heart rate 48 /min [facility] 01-16-2025 19:30-0500 Mean blood pressure 115 mm[Hg] [facility] 01-16-2025 19:30-0500 Respiratory rate 13 /min [facility] 01-16-2025 19:30-0500 SaO2% (BldA) [Mass fraction] 98 % [facility] 01-16-2025 19:30-0500 Systolic blood pressure 135 mm[Hg] [facility] 01-16-2025 17:53-0500 Body temperature 99.14 [degF] [facility] 01-16-2025 17:53-0500 Diastolic blood pressure 71 mm[Hg] [facility] 01-16-2025 17:53-0500 Heart rate 64 /min [facility] 01-16-2025 17:53-0500 Respiratory rate 20 /min [facility] 01-16-2025 17:53-0500 SaO2% (BldA) [Mass fraction] 100 % [facility] 01-16-2025 17:53-0500 Systolic blood pressure 129 mm[Hg] [facility] 10-29-2024 00:01-0500 Diastolic blood pressure 94 mm[Hg] [facility] Work Phone: [facility] 10-29-2024 00:01-0500 Heart rate 72 /min [facility] Work Phone: [facility] 10-29-2024 00:01-0500 Respiratory rate 16 /min [facility] Work Phone: [facility] 10-29-2024 00:01-0500 SaO2% (BldA) [Mass fraction] 99 % [facility] Work Phone: [facility] 10-29-2024 00:01-0500 Systolic blood pressure 156 mm[Hg] [facility] Work Phone: [facility] 10-28-2024 18:07-0500 Body height 157.48 cm [facility] Work Phone: [facility] 10-28-2024 18:07-0500 Body temperature 98.6 [degF] [facility] Work Phone: [facility] 10-28-2024 18:07-0500 Body weight 92.85 kg [facility] Work Phone: [facility] 08-03-2024 23:10-0400 Diastolic blood pressure 68 mm[Hg] [facility] Work Phone: [facility] 08-03-2024 23:10-0400 Heart rate 95 /min [facility] Work Phone: [facility] 08-03-2024 23:10-0400 Respiratory rate 18 /min [facility] Work Phone: [facility] 08-03-2024 23:10-0400 SaO2% (BldA) [Mass fraction] 99 % [facility] Work Phone: [facility] 08-03-2024 23:10-0400 Systolic blood pressure 115 mm[Hg] [facility] Work Phone: [facility] 08-03-2024 20:35-0400 Body height 157.48 cm [facility] Work Phone: [facility] 08-03-2024 20:35-0400 Body temperature 99.1 [degF] [facility] Work Phone: [facility] 08-03-2024 20:35-0400 Body weight 90.[address] [facility] Work Phone: [facility] 07-30-2024 22:55-0400 Diastolic blood pressure 72 mm[Hg] Cresencio Colten [facility] 07-30-2024 22:55-0400 Heart rate 50 /min Cresencio Colten [facility] 07-30-2024 22:55-0400 Mean blood pressure 83 mm[Hg] Cresencio Colten [facility] 07-30-2024 22:55-0400 Respiratory rate 16 /min Cresencio Colten [facility] 07-30-2024 22:55-0400 SaO2% (BldA) [Mass fraction] 98 % Cresencio Colten [facility] 07-30-2024 22:55-0400 Systolic blood pressure 104 mm[Hg] Cresencio Colten [facility] 07-30-2024 19:28-0400 Body temperature 98.06 [degF] Cresencio Colten [facility] 07-30-2024 19:28-0400 Diastolic blood pressure 76 mm[Hg] Cresencio Colten [facility] 07-30-2024 19:28-0400 Heart rate 55 /min Cresencio Colten [facility] 07-30-2024 19:28-0400 Respiratory rate 16 /min Cresencio Colten [facility] 07-30-2024 19:28-0400 SaO2% (BldA) [Mass fraction] 97 % Cresencio Colten [facility] 07-30-2024 19:28-0400 Systolic blood pressure 118 mm[Hg] Cresencio Colten [facility] 03-19-2024 00:10-0400 Diastolic blood pressure 90 mm[Hg] [facility] Work Phone: [facility] 03-19-2024 00:10-0400 Heart rate 110 /min [facility] Work Phone: [facility] 03-19-2024 00:10-0400 Respiratory rate 18 /min [facility] Work Phone: [facility] 03-19-2024 00:10-0400 SaO2% (BldA) [Mass fraction] 100 % [facility] [employer] Work Phone: [facility] 03-19-2024 00:10-0400 Systolic blood pressure 144 mm[Hg] [facility] [employer] Work Phone: [facility] 03-18-2024 22:03-0400 Body height 160.02 cm [facility] [employer] Work Phone: [facility] 03-18-2024 22:03-0400 Body temperature 98.3 [degF] [facility] [employer] Work Phone: [facility] 03-18-2024 22:03-0400 Body weight 92.2 kg [facility] [employer] Work Phone: [facility] 03-15-2024 13:43-0400 Diastolic blood pressure 89 mm[Hg] [facility] 03-15-2024 13:43-0400 Heart rate 51 /min [facility] 03-15-2024 13:43-0400 Mean blood pressure 107 mm[Hg] [facility] 03-15-2024 13:43-0400 Respiratory rate 16 /min [facility] 03-15-2024 13:43-0400 SaO2% (BldA) [Mass fraction] 100 % [facility] 03-15-2024 13:43-0400 Systolic blood pressure 144 mm[Hg] [facility] 03-15-2024 12:01-0400 Diastolic blood pressure 87 mm[Hg] [facility] 03-15-2024 12:01-0400 Heart rate 52 /min [facility] 03-15-2024 12:01-0400 Mean blood pressure 107 mm[Hg] [facility] 03-15-2024 12:01-0400 SaO2% (BldA) [Mass fraction] 100 % [facility] 03-15-2024 12:01-0400 Systolic blood pressure 148 mm[Hg] [facility] 03-15-2024 10:35-0400 Body temperature 97.52 [degF] [facility] 03-15-2024 10:35-0400 Diastolic blood pressure 86 mm[Hg] [facility] 03-15-2024 10:35-0400 Heart rate 60 /min [facility] 03-15-2024 10:35-0400 Respiratory rate 18 /min [facility] 03-15-2024 10:35-0400 SaO2% (BldA) [Mass fraction] 98 % [facility] 03-15-2024 10:35-0400 Systolic blood pressure 143 mm[Hg] [facility] 03-13-2024 22:00-0400 Diastolic blood pressure 105 mm[Hg] Femi Roman [facility] 03-13-2024 22:00-0400 Heart rate 53 /min Femi Roman [facility] 03-13-2024 22:00-0400 Mean blood pressure 117 mm[Hg] Femi Roman [facility] 03-13-2024 22:00-0400 SaO2% (BldA) [Mass fraction] 100 % Femi Roman [facility] 03-13-2024 22:00-0400 Systolic blood pressure 140 mm[Hg] Femi Jessie [facility] 03-13-2024 21:00-0400 Diastolic blood pressure 106 mm[Hg] Femi Jessie [facility] 03-13-2024 21:00-0400 Heart rate 93 /min Femi Jessie [facility] 03-13-2024 21:00-0400 Mean blood pressure 119 mm[Hg] Femi Jessie [facility] 03-13-2024 21:00-0400 Respiratory rate 21 /min Femi Jessie [facility] 03-13-2024 21:00-0400 SaO2% (BldA) [Mass fraction] 98 % Femi Jessie [facility] 03-13-2024 21:00-0400 Systolic blood pressure 144 mm[Hg] Femi Jessie [facility] 03-13-2024 20:00-0400 Diastolic blood pressure 103 mm[Hg] Femi Jessie [facility] 03-13-2024 20:00-0400 Heart rate 50 /min Femi Jessie [facility] 03-13-2024 20:00-0400 Mean blood pressure 120 mm[Hg] Femi Jessie [facility] 03-13-2024 20:00-0400 Systolic blood pressure 153 mm[Hg] Femi Jessie [facility] 03-13-2024 19:38-0400 Respiratory rate 14 /min Femi Jessie [facility] 03-13-2024 18:36-0400 Respiratory rate 18 /min Femi Jessie [facility] 03-13-2024 17:51-0400 Body temperature 98.24 [degF] Femi Roman [facility] 03-13-2024 17:36-0400 Body temperature 98.24 [degF] Femi Roman [facility] 03-13-2024 17:36-0400 Heart rate 61 /min Femi Roman [facility] 03-13-2024 17:36-0400 Respiratory rate 18 /min Femi Roman [facility] 07-31-2023 18:09-0400 Body height 157.48 cm [facility] Work Phone: [facility] 07-31-2023 18:09-0400 Body temperature 98.6 [degF] [facility] Work Phone: [facility] 07-31-2023 18:09-0400 Body weight 84 kg [facility] Work Phone: [facility] 07-31-2023 18:09-0400 Diastolic blood pressure 106 mm[Hg] [facility] Work Phone: [facility] 07-31-2023 18:09-0400 Heart rate 87 /min [facility] Work Phone: [facility] 07-31-2023 18:09-0400 Respiratory rate 18 /min [facility] Work Phone: [facility] 07-31-2023 18:09-0400 SaO2% (BldA) [Mass fraction] 98 % [facility] Work Phone: [facility] 07-31-2023 18:09-0400 Systolic blood pressure 150 mm[Hg] [facility] Work Phone: [facility] 05-25-2023 13:11-0400 Diastolic blood pressure 96 mm[Hg] [facility] Work Phone: [facility] 05-25-2023 13:11-0400 Heart rate 60 /min [facility] [employer] Work Phone: [facility] 05-25-2023 13:11-0400 Respiratory rate 16 /min [facility] [employer] Work Phone: [facility] 05-25-2023 13:11-0400 SaO2% (BldA) [Mass fraction] 97 % [facility] [employer] Work Phone: [facility] 05-25-2023 13:11-0400 Systolic blood pressure 160 mm[Hg] [facility] [employer] Work Phone: [facility] 05-25-2023 11:56-0400 Inhaled oxygen flow rate 6 L/min [facility] [employer] Work Phone: [facility] 05-25-2023 11:54-0400 Body temperature 97.2 [degF] [facility] [employer] Work Phone: [facility] 05-25-2023 09:39-0400 Body height 160.02 cm Services [facility] [employer] Work Phone: [facility] 05-25-2023 09:39-0400 Body mass index (BMI) [Percentile] Per age and sex 96.6 % [facility] [employer] Work Phone: [facility] 05-25-2023 09:39-0400 Body mass index (BMI) [Ratio] 33.6 kg/m2 [facility] [employer] Work Phone: [facility] 05-25-2023 09:39-0400 Body weight 86.18 kg [facility] [employer] Work Phone: [facility] 05-23-2023 08:00-0400 Body height 157.48 cm Colten Miller Other [employer] Other 05-23-2023 08:00-0400 Body mass index (BMI) [Ratio] 34.75 kg/m2 Colten Miller Other [employer] Other 05-23-2023 08:00-0400 Body weight 86.18 kg Colten Miller Other [facility] [employer] Other 01-07-2023 14:08-0500 Body height 157.48 cm [facility] [employer] Work Phone: [facility] 01-07-2023 12:34-0500 Body temperature 98.1 [degF] [facility] [employer] Senior Work Phone: [facility] 01-07-2023 12:34-0500 Diastolic blood pressure 86 mm[Hg] Services [facility] [employer] Work Phone: [facility] 01-07-2023 12:34-0500 Heart rate 75 /min Services [facility] [employer] Work Phone: [facility] 01-07-2023 12:34-0500 SaO2% (BldA) [Mass fraction] 100 % [facility] [employer] Senior Work Phone: [facility] 01-07-2023 12:34-0500 Systolic blood pressure 147 mm[Hg] Services [facility] [employer] Work Phone: [facility] 01-07-2023 11:57-0500 Respiratory rate 18 /min Services [facility] [employer] Work Phone: [facility] 01-07-2023 06:00-0500 Body weight 78.2 kg Services [facility] [employer] Senior Work Phone: [facility] 01-06-2023 18:29-0500 Diastolic blood pressure 82 mm[Hg] Services [facility] Senior Work Phone: [facility] 01-06-2023 18:29-0500 Heart rate 64 /min Services [facility] [employer] Work Phone: [facility] 01-06-2023 18:29-0500 Respiratory rate 16 /min Services [facility] Work Phone: [facility] 01-06-2023 18:29-0500 SaO2% (BldA) [Mass fraction] 98 % [facility] Work Phone: [facility] 01-06-2023 18:29-0500 Systolic blood pressure 139 mm[Hg] [facility] Work Phone: [facility] 01-06-2023 11:12-0500 Body height 157.48 cm Services [facility] Work Phone: [facility] 01-06-2023 11:12-0500 Body temperature 98 [degF] [facility] Work Phone: [facility] 01-06-2023 11:12-0500 Body weight 77.[address] [facility] Work Phone: [facility] 01-02-2023 04:00-0500 Heart rate 62 /min Services [facility] Work Phone: [facility] 01-02-2023 04:00-0500 Respiratory rate 18 /min [facility] Work Phone: [facility] 01-02-2023 04:00-0500 SaO2% (BldA) [Mass fraction] 100 % [facility] Work Phone: [facility] 01-02-2023 02:37-0500 Diastolic blood pressure 85 mm[Hg] Services [facility] Work Phone: [facility] 01-02-2023 02:37-0500 Systolic blood pressure 155 mm[Hg] [facility] Work Phone: [facility] 01-02-2023 01:14-0500 Body height 157.[address] [facility] Work Phone: [facility] 01-02-2023 01:14-0500 Body temperature 98 [degF] Services [facility] Senior Work Phone: [facility] 01-02-2023 01:14-0500 Body weight 77.[address] [facility] Work Phone: [facility] 12-31-2022 12:11-0500 Heart rate 70 /min [facility] Work Phone: [facility] 12-31-2022 12:08-0500 Body height 157.48 cm [facility] Work Phone: [facility] 12-31-2022 12:08-0500 Body temperature 97.7 [degF] [facility] Work Phone: [facility] 12-31-2022 12:08-0500 Body weight 79 kg [facility] [employer] Senior Work Phone: [facility] 12-31-2022 12:08-0500 Diastolic blood pressure 87 mm[Hg] [facility] [employer] Senior Work Phone: [facility] 12-31-2022 12:08-0500 Respiratory rate 18 /min Services [facility] Senior Work Phone: [facility] 12-31-2022 12:08-0500 SaO2% (BldA) [Mass fraction] 99 % [facility] [employer] Senior Work Phone: [facility] 12-31-2022 12:08-0500 Systolic blood pressure 134 mm[Hg] Services [facility] Senior Work Phone: [facility] 11-09-2022 15:15-0500 Body height 157.[address] [facility] Senior Work Phone: [facility] 11-09-2022 15:15-0500 Body temperature 98.4 [degF] Services [facility] Senior Work Phone: [facility] 11-09-2022 15:15-0500 Body weight 81.[address] [facility] Senior Work Phone: [facility] 11-09-2022 15:15-0500 Diastolic blood pressure 90 mm[Hg] Services [facility] Senior Work Phone: [facility] 11-09-2022 15:15-0500 Heart rate 95 /min [facility] [employer] Senior Work Phone: [facility] 11-09-2022 15:15-0500 Respiratory rate 16 /min [facility] Work Phone: [facility] 11-09-2022 15:15-0500 SaO2% (BldA) [Mass fraction] 100 % [facility] Work Phone: [facility] 11-09-2022 15:15-0500 Systolic blood pressure 140 mm[Hg] [facility] Work Phone: [facility] 11-07-2022 13:40-0500 Diastolic blood pressure 85 mm[Hg] [facility] Work Phone: [facility] 11-07-2022 13:40-0500 Heart rate 68 /min [facility] Work Phone: [facility] 11-07-2022 13:40-0500 Respiratory rate 16 /min [facility] Work Phone: [facility] 11-07-2022 13:40-0500 SaO2% (BldA) [Mass fraction] 100 % [facility] Work Phone: [facility] 11-07-2022 13:40-0500 Systolic blood pressure 119 mm[Hg] [facility] Work Phone: [facility] 11-07-2022 11:05-0500 Body temperature 98.2 [degF] [facility] Work Phone: [facility] 11-07-2022 11:04-0500 Body height 158.75 cm [facility] Work Phone: [facility] 11-07-2022 11:04-0500 Body weight 77 kg [facility] Work Phone: [facility] 11-02-2022 09:53-0500 Diastolic blood pressure 89 mm[Hg] [facility] Work Phone: [facility] 11-02-2022 09:53-0500 Heart rate 50 /min [facility] Work Phone: [facility] 11-02-2022 09:53-0500 Respiratory rate 18 /min [facility] Work Phone: [facility] 11-02-2022 09:53-0500 SaO2% (BldA) [Mass fraction] 98 % [facility] Work Phone: [facility] 11-02-2022 09:53-0500 Systolic blood pressure 156 mm[Hg] [facility] Work Phone: [facility] 11-02-2022 03:00-0500 Body height 157.[address] [facility] Senior Work Phone: [facility] 11-02-2022 03:00-0500 Body temperature 98.4 [degF] [facility] Work Phone: [facility] 11-02-2022 03:00-0500 Body weight 78 kg Services [facility] Work Phone: [facility] 10-31-2022 10:05-0500 Diastolic blood pressure 85 mm[Hg] [facility] Work Phone: [facility] 10-31-2022 10:05-0500 Heart rate 59 /min Services [facility] Senior Work Phone: [facility] 10-31-2022 10:05-0500 Respiratory rate 18 /min [facility] Work Phone: [facility] 10-31-2022 10:05-0500 SaO2% (BldA) [Mass fraction] 98 % [facility] Work Phone: [facility] 10-31-2022 10:05-0500 Systolic blood pressure 137 mm[Hg] [facility] Work Phone: [facility] 10-31-2022 08:50-0500 Body height 157.[address] [facility] Senior Work Phone: [facility] 10-31-2022 08:50-0500 Body temperature 98.2 [degF] Services [facility] Work Phone: [facility] 10-31-2022 08:50-0500 Body weight 83.91 kg Services [facility] Senior Work Phone: [facility] 10-29-2022 12:01-0500 Body height 157.48 cm Services [facility] Work Phone: [facility] 10-29-2022 12:01-0500 Body temperature 97.8 [degF] Services [facility] Work Phone: [facility] 10-29-2022 12:01-0500 Body weight 81 kg Services [facility] Work Phone: [facility] 10-29-2022 12:01-0500 Diastolic blood pressure 84 mm[Hg] Services [facility] Work Phone: [facility] 10-29-2022 12:01-0500 Heart rate 60 /min Services [facility] Work Phone: [facility] 10-29-2022 12:01-0500 Respiratory rate 18 /min Services [facility] Senior Work Phone: [facility] 10-29-2022 12:01-0500 SaO2% (BldA) [Mass fraction] 99 % Services [facility] Work Phone: [facility] 10-29-2022 12:01-0500 Systolic blood pressure 109 mm[Hg] Services [facility] Work Phone: [facility] 08-22-2022 12:00-0400 Body temperature 98 [degF] Services [facility] Work Phone: [facility] 08-22-2022 12:00-0400 Diastolic blood pressure 78 mm[Hg] Services [facility] Work Phone: [facility] 08-22-2022 12:00-0400 Heart rate 80 /min Services [facility] Work Phone: [facility] 08-22-2022 12:00-0400 Respiratory rate 18 /min Services [facility] Work Phone: [facility] 08-22-2022 12:00-0400 SaO2% (BldA) [Mass fraction] 95 % Services [facility] Work Phone: [facility] 08-22-2022 12:00-0400 Systolic blood pressure 121 mm[Hg] Services [facility] Work Phone: [facility] 08-22-2022 05:50-0400 Body weight 77.5 kg Services [facility] Work Phone: [facility] 08-21-2022 11:27-0400 Body height 157.48 cm Services [facility] Work Phone: [facility] 08-20-2022 16:34-0400 Diastolic blood pressure 90 mm[Hg] Services [facility] Work Phone: [facility] 08-20-2022 16:34-0400 Heart rate 68 /min Services [facility] Work Phone: [facility] 08-20-2022 16:34-0400 Respiratory rate 20 /min Services [facility] Work Phone: [facility] 08-20-2022 16:34-0400 SaO2% (BldA) [Mass fraction] 96 % Services [facility] Work Phone: [facility] 08-20-2022 16:34-0400 Systolic blood pressure 142 mm[Hg] Services [facility] Work Phone: [facility] 08-20-2022 11:58-0400 Body height 157.48 cm Services [facility] Work Phone: [facility] 08-20-2022 11:58-0400 Body temperature 97.9 [degF] Services [facility] Work Phone: [facility] 08-20-2022 11:58-0400 Body weight 79.37 kg Services [facility] Work Phone: [facility] 08-20-2022 01:00-0400 Body temperature 97.9 [degF] Services [facility] Work Phone: [facility] 08-20-2022 01:00-0400 Diastolic blood pressure 72 mm[Hg] Services [facility] Work Phone: [facility] 08-20-2022 01:00-0400 Heart rate 53 /min Services [facility] Work Phone: [facility] 08-20-2022 01:00-0400 Respiratory rate 16 /min Services [facility] Work Phone: [facility] 08-20-2022 01:00-0400 SaO2% (BldA) [Mass fraction] 97 % Services [facility] Work Phone: [facility] 08-20-2022 01:00-0400 Systolic blood pressure 131 mm[Hg] Services [facility] Work Phone: [facility] 08-19-2022 18:57-0400 Body height 157.48 cm Services [facility] Work Phone: [facility] 08-19-2022 18:57-0400 Body weight 79.37 kg Services [facility] Work Phone: [facility] 08-19-2022 14:00-0400 Diastolic blood pressure 79 mm[Hg] Services [facility] Work Phone: [facility] 08-19-2022 14:00-0400 Heart rate 67 /min Services [facility] Work Phone: [facility] 08-19-2022 14:00-0400 Respiratory rate 20 /min Services [facility] Work Phone: [facility] 08-19-2022 14:00-0400 SaO2% (BldA) [Mass fraction] 99 % Services [facility] Work Phone: [facility] 08-19-2022 14:00-0400 Systolic blood pressure 139 mm[Hg] Services [facility] Work Phone: [facility] 08-19-2022 00:40-0400 Body height 157.48 cm Services [facility] Work Phone: [facility] 08-19-2022 00:40-0400 Body temperature 98.8 [degF] Services [facility] Work Phone: [facility] 08-19-2022 00:40-0400 Body weight 77.11 kg Services [facility] Work Phone: [facility] 08-18-2022 15:28-0400 Body temperature 97.8 [degF] Services [facility] Work Phone: [facility] 08-18-2022 15:28-0400 Diastolic blood pressure 90 mm[Hg] Services [facility] Work Phone: [facility] 08-18-2022 15:28-0400 Heart rate 54 /min Services [facility] Work Phone: [facility] 08-18-2022 15:28-0400 Respiratory rate 20 /min Services [facility] Work Phone: [facility] 08-18-2022 15:28-0400 SaO2% (BldA) [Mass fraction] 100 % Services [facility] Work Phone: [facility] 08-18-2022 15:28-0400 Systolic blood pressure 135 mm[Hg] Services [facility] Work Phone: [facility] 08-18-2022 12:26-0400 Body height 157.48 cm Services [facility] Work Phone: [facility] 08-18-2022 12:26-0400 Body weight 77.11 kg Services [facility] Work Phone: [facility] 06-09-2022 10:25-0400 Diastolic blood pressure 51 mm[Hg] Services [facility] Work Phone: [facility] 06-09-2022 10:25-0400 Heart rate 83 /min Services [facility] Work Phone: [facility] 06-09-2022 10:25-0400 Respiratory rate 20 /min Services [facility] Work Phone: [facility] 06-09-2022 10:25-0400 SaO2% (BldA) [Mass fraction] 98 % Services [employer] Work Phone: [facility] 06-09-2022 10:25-0400 Systolic blood pressure 92 mm[Hg] Services [facility] Work Phone: [facility] 06-09-2022 08:46-0400 Body height 157.48 cm Services [facility] Work Phone: [facility] 06-09-2022 08:46-0400 Body mass index (BMI) [Percentile] Per age and sex 96.2 % Services [employer] Work Phone: [facility] 06-09-2022 08:46-0400 Body mass index (BMI) [Ratio] 32 kg/m2 Services [employer] Work Phone: [facility] 06-09-2022 08:46-0400 Body temperature 97.4 [degF] Services [facility] [employer] Work Phone: [facility] 06-09-2022 08:46-0400 Body weight 79.37 kg Services [employer] Work Phone: [facility] 05-16-2022 13:52-0400 Diastolic blood pressure 96 mm[Hg] Services [employer] Work Phone: [facility] 05-16-2022 13:52-0400 Heart rate 66 /min Services [employer] Work Phone: [facility] 05-16-2022 13:52-0400 Respiratory rate 18 /min Services [employer] Work Phone: [facility] 05-16-2022 13:52-0400 SaO2% (BldA) [Mass fraction] 100 % Services [employer] Work Phone: [facility] 05-16-2022 13:52-0400 Systolic blood pressure 138 mm[Hg] Services [facility] Work Phone: [facility] 05-16-2022 11:54-0400 Body height 157.48 cm Services [employer] Work Phone: [facility] 05-16-2022 11:54-0400 Body mass index (BMI) [Percentile] Per age and sex 95.5 % Services [employer] Work Phone: [facility] 05-16-2022 11:54-0400 Body mass index (BMI) [Ratio] 31.1 kg/m2 Services [employer] Work Phone: [facility] 05-16-2022 11:54-0400 Body temperature 98.4 [degF] Services [employer] Work Phone: [facility] 05-16-2022 11:54-0400 Body weight 77.11 kg Services [employer] Work Phone: [facility] 05-15-2022 15:30-0400 Diastolic blood pressure 82 mm[Hg] Services [employer] Work Phone: [facility] 05-15-2022 15:30-0400 Heart rate 52 /min Services [employer] Work Phone: [facility] 05-15-2022 15:30-0400 Respiratory rate 14 /min Services [facility] [employer] Work Phone: [facility] 05-15-2022 15:30-0400 SaO2% (BldA) [Mass fraction] 99 % Services [employer] Work Phone: [facility] 05-15-2022 15:30-0400 Systolic blood pressure 134 mm[Hg] Services [employer] Work Phone: [facility] 05-15-2022 12:28-0400 Body height 157.48 cm Services [employer] Work Phone: [facility] 05-15-2022 12:28-0400 Body mass index (BMI) [Percentile] Per age and sex 95.5 % Services [employer] Work Phone: [facility] 05-15-2022 12:28-0400 Body mass index (BMI) [Ratio] 31 kg/m2 Services [facility] Work Phone: [facility] 05-15-2022 12:28-0400 Body temperature 98.1 [degF] Services [facility] Work Phone: [facility] 05-15-2022 12:28-0400 Body weight 77 kg Services [facility] Work Phone: [facility] 05-14-2022 22:56-0400 Body temperature 98.1 [degF] Services [facility] Work Phone: [facility] 05-14-2022 22:56-0400 Diastolic blood pressure 74 mm[Hg] Services [employer] Work Phone: [facility] 05-14-2022 22:56-0400 Heart rate 18 /min Services [facility] Work Phone: [facility] 05-14-2022 22:56-0400 Respiratory rate 18 /min Services [facility] Work Phone: [facility] 05-14-2022 22:56-0400 SaO2% (BldA) [Mass fraction] 94 % Services [employer] Work Phone: [facility] 05-14-2022 22:56-0400 Systolic blood pressure 137 mm[Hg] Services [employer] Work Phone: [facility] 05-14-2022 02:18-0400 Body height 157.48 cm Services [facility] Work Phone: [facility] 05-14-2022 02:18-0400 Body mass index (BMI) [Percentile] Per age and sex 95.5 % Services [employer] Work Phone: [facility] 05-14-2022 02:18-0400 Body mass index (BMI) [Ratio] 31.1 kg/m2 Services [employer] Work Phone: [facility] 05-14-2022 02:18-0400 Body temperature 97.9 [degF] Services [facility] Work Phone: [facility] 05-14-2022 02:18-0400 Body weight 77.11 kg Services [facility] Work Phone: [facility] 05-14-2022 02:18-0400 Diastolic blood pressure 65 mm[Hg] Services [facility] Work Phone: [facility] 05-14-2022 02:18-0400 Heart rate 54 /min Services [facility] Work Phone: [facility] 05-14-2022 02:18-0400 Respiratory rate 18 /min Services [facility] Work Phone: [facility] 05-14-2022 02:18-0400 SaO2% (BldA) [Mass fraction] 98 % Services [employer] Work Phone: [facility] 05-14-2022 02:18-0400 Systolic blood pressure 133 mm[Hg] Services [facility] Work Phone: [facility] 05-13-2022 12:09-0400 Heart rate 72 /min Services [facility] Work Phone: [facility] 05-13-2022 12:09-0400 Respiratory rate 18 /min Services [employer] Work Phone: [facility] 05-13-2022 12:09-0400 SaO2% (BldA) [Mass fraction] 98 % Services [facility] Work Phone: [facility] 05-13-2022 10:32-0400 Body height 156.21 cm Services [facility] Work Phone: [facility] 05-13-2022 10:32-0400 Body mass index (BMI) [Percentile] Per age and sex 95.9 % Services [employer] Work Phone: [facility] 05-13-2022 10:32-0400 Body mass index (BMI) [Ratio] 31.6 kg/m2 Services [employer] Work Phone: [facility] 05-13-2022 10:32-0400 Body temperature 98.1 [degF] Services [facility] Work Phone: [facility] 05-13-2022 10:32-0400 Body weight 77.[address] [facility] Work Phone: [facility] 05-13-2022 10:32-0400 Diastolic blood pressure 87 mm[Hg] Services [facility] Work Phone: [facility] 05-13-2022 10:32-0400 Systolic blood pressure 145 mm[Hg] Services [facility] Work Phone: [facility] Encounters Encounter Date Encounter Type Care Provider Facility Start: 05-06-2025 End: 05-06-2025 ambulatory Drew Steinberg [facility] Work Phone: Start: 05-06-2025 End: 05-06-2025 Departed Referred Jasmeet Dahl MD Work Phone: [facility] Start: 05-04-2025 End: 05-04-2025 ambulatory Jasmeet Dahl [facility] Work Phone: Start: 05-04-2025 End: 05-04-2025 Departed Referred Jasmeet Dahl MD Work Phone: [facility] Start: 01-23-2025 End: 01-23-2025 ambulatory Services [facility] Work Phone: [facility] Work Phone: Start: 01-23-2025 End: 01-23-2025 Departed Referred Services Family [facility] Work Phone: [facility] Start: 01-16-2025 End: 01-16-2025 Emergency department patient visit August Bermudez [facility] Start: 10-28-2024 End: 10-29-2024 Emergency department patient visit Services [facility] Work Phone: [facility]Emergency Room Work Phone: Start: 10-28-2024 Non-patient / Non-visit Servic es [facility] Work Phone: [facility] Work Phone: Start: 08-03-2024 End: 08-04-2024 Emergency department patient visit Services [facility] Work Phone: [facility] Work Phone: Start: 08-01-2024 End: 08-01-2024 Emergency department patient visit MODESTA ARCHIBALD [place] Start: 07-30-2024 End: 07-30-2024 Emergency department patient visit Cresencio Abel Facility[place] Start: 03-18-2024 End: 03-19-2024 Emergency department patient visit Services [facility] Work Phone: [facility] Work Phone: Start: 03-15-2024 End: 03-15-2024 Emergency department patient visit Beliaaries Carbone Ebony [facility] Start: 03-13-2024 End: 03-13-2024 Emergency department patient visit Femi Roman [facility] Start: 07-31-2023 End: 07-31-2023 Emergency department patient visit Services [facility] Work Phone: [facility] Work Phone: Start: 07-14-2023 End: 07-14-2023 ambulatory Services [facility] Work Phone: [facility] Work Phone: Start: 07-14-2023 End: 07-14-2023 Patient encounter procedure Services [facility] Work Phone: [facility] Start: 06-16-2023 End: 06-16-2023 ambulatory Services [facility] Work Phone: [facility] Work Phone: Start: 06-16-2023 End: 06-16-2023 Patient encounter procedure Services Family [employer] Work Phone: [facility] Start: 06-02-2023 Postop follow up vis it related to original px Colten Wesleyxa [facility] Start: 06-02-2023 End: 06-02-2023 ambulatory Services [facility] Work Phone: [facility] Other Start: 06-02-2023 End: 06-02-2023 Patient encounter procedure Services [employer] Work Phone: [facility] Start: 05-25-2023 End: 05-25-2023 Admission to same day surgery center [facility] [employer] Work Phone: [facility] [place] Start: 05-25-2023 End: 05-25-2023 ambulatory [facility] [employer] Work Phone: [facility] Work Phone: Start: 05-24-2023 End: 05-24-2023 ambulatory Colten Olexa Other [facility] Other Start: 05-24-2023 Telephone encounter Colten Lupilloxa [facility] Start: 05-23-2023 End: 05-23-2023 ambulatory Colten Olexa Other [facility] Other Start: 05-23-2023 Encounter for other preprocedural examination Colten Wesleyxa [facility] Start: 05-23-2023 Office outpatient ne w 45 minutes Colten Wesleyxa [facility] Start: 03-15-2023 End: 03-15-2023 Departed Referred Services [facility] Work Phone: [facility] Start: 01-26-2023 End: 01-26-[address] DOCTOR MISC Facility:[facility] Start: 01-06-2023 End: 01-07-2023 Evaluation and management of inpatient Services [facility] Work Phone: [facility] Work Phone: Start: 01-06-[address] [facility] Work Phone: [facility] Work Phone: Start: 01-06-2023 End: 01-07-[address] [facility] Work Phone: [facility] [place] [facility] Work Phone: Start: 01-02-2023 End: 01-02-[address] [facility] Work Phone: [facility]-Emergency Room Work Phone: Start: 01-01-2023 End: 01-01-2023 ambulatory IRWIN DIAB . Facility:[facility] Start: 12-31-2022 End: 12-31-2022 Emergency department patient visit Services [facility] Work Phone: [facility] Work Phone: Start: 12-31-2022 End: 12-31-[address] [facility] Work Phone: [facility]Emergency Room Work Phone: Start: 11-09-2022 End: 11-09-2022 Emergency department patient visit Services [facility] Work Phone: [facility] Work Phone: Start: 11-09-2022 End: 11-09-[address] [facility] Work Phone: [facility]Emergency Room Start: 11-07-2022 End: 11-07-2022 Emergency department patient visit Services [facility] Work Phone: [facility] Work Phone: Start: 11-07-2022 End: 11-07-2022 Services [facility] Work Phone: [facility]-Emergency Room Start: 11-02-2022 End: 11-02-2022 Emergency department patient visit Services [facility] Work Phone: [facility] Work Phone: Start: 11-02-2022 End: 11-02-2022 Services [facility] Work Phone: [facility]-Emergency Room Start: 10-31-2022 End: 10-31-2022 Emergency department patient visit Services [facility] Work Phone: [facility] Work Phone: Start: 10-31-2022 End: 10-31-2022 Services [facility] Work Phone: [facility]-Emergency Room Start: 10-29-2022 End: 10-29-2022 Emergency department patient visit Services [facility] Work Phone: [facility]-Emergency Room Start: 10-29-2022 End: 10-29-2022 Services [facility] Senior Work Phone: [facility]Emergency [facility] Start: 08-27-2022 End: 08-27-2022 Departed Referred Services [facility] Senior Work Phone: [facility] Start: 08-27-2022 End: 08-27-2022 Services [facility] Senior Work Phone: [facility] Start: 08-20-2022 End: 08-22-2022 Evaluation and management of inpatient Services [facility] Work Phone: [facility] [place] [facility] Start: 08-20-2022 End: 08-22-2022 Services [facility] Senior Work Phone: [facility] [place] [facility] Start: 08-19-2022 End: 08-20-2022 Emergency department patient visit Services [facility] Work Phone: [facility]Emergency Room Start: 08-19-2022 End: 08-20-2022 Services [facility] Senior Work Phone: [facility]Emergency Room Start: 08-19-2022 End: 08-19-2022 Emergency department patient visit Services [employer] Work Phone: [facility] Start: 08-19-2022 End: 08-19-2022 Services [facility] Work Phone: [facility]Emergency Room Start: 08-18-2022 End: 08-18-2022 Emergency department patient visit [facility] [employer] Work Phone: [facility]Emergency Room Start: 08-18-2022 End: 08-18-2022 Services [facility] Work Phone: [facility] Start: 06-25-2022 End: 06-25-2022 Departed Referred Services [employer] Work Phone: [facility] Start: 06-09-2022 End: 06-09-2022 Admission to same day surgery center [facility] [employer] Work Phone: [facility]Dig[facility]ive [facility] Start: 06-07-2022 End: 06-07-2022 Patient encounter procedure [facility] [employer] Work Phone: [facility]-Pre-Surgical Testing Start: 05-26-2022 End: 05-26-2022 Departed Referred [facility] [employer] Work Phone: [facility] Start: 05-16-2022 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 Comment on above: Abdominal Pain Start: 05-16-2022 End: 05-16-2022 Emergency department patient visit [facility] [employer] Work Phone: [facility] Start: 05-15-2022 End: 05-15-2022 Emergency department patient visit [facility] [employer] Work Phone: [facility] Start: 05-14-2022 End: 05-14-2022 Emergency department patient visit Services [facility] Work Phone: [facility] Start: 05-14-2022 End: 05-14-2022 Emergency department patient visit Services Family [facility] Work Phone: [facility]Emergency Room Start: 05-13-2022 End: 05-13-2022 Emergency department patient visit Services [employer] [facility] Work Phone: [facility]Emergency Room Start: 06-23-2018 Evaluation and manag ement [...] 08-25-2017 Patient encounter DALI B SPLAWSKI Fa cility:[facility] Start: 08-09-2017 End: 08-24-2017 Evaluation and management of inpatient AIMEE ALEMAN Facility:[facility] Procedures Date Procedure Procedure Detail Performing Clinician Start: 05-04-2025 Urine culture Jasmeet Dahl MD Work Phone: Start: 10-28-2024 Urine culture [facility] Work Phone: Start: 07-14-2023 X-ray of right knee [facility] Work Phone: Start: 06-16-2023 X-ray of right knee [facility] Work Phone: Start: 06-02-2023 X-ray of right knee [facility] [employer] Work Phone: Start: 05-25-2023 Arthroscopy of knee Services [facility] [employer] Phone: Start: 03-15-2023 Respiratory Panel (PCR) Services [facility] [employer] Phone: Start: 01-06-2023 Computed tomography of abdomen and pelvis with contrast Services [facility] [employer] Phone: Start: 01-06-2023 Plain chest X-ray Services [facility] [employer] Phone: Start: 01-06-2023 Pelvis X-ray Services [facility] [employer] Phone: Start: 01-02-[address] [facility] [employer] Phone: Start: 12-31-2022 Influenza A and B virus antigen assay Services [facility] [employer] Phone: Start: 12-31-[address] [facility] [employer] Phone: Start: 11-02-[address] [facility] [employer] Phone: Start: 10-31-[address] [facility] [employer] Phone: Start: 08-19-2022 Computed tomography of abdomen and pelvis with contrast Services [facility] [employer] Phone: Start: 06-09-2022 Esophagogastroduodenoscopy Services [facility] [employer] Phone: Start: 05-16-2022 Computed tomography of abdomen and pelvis with contrast Services [facility] [employer] Phone: Start: 08-21-2017 Introduction of Nutritional Substance [...] [facility] Work Phone: [facility] Work Phone: Plan of Treatment Date Care Activity Detail Author Start: 05-06-2025 Bacteria identified in Urine by Culture Urine Culture [facility] Start: 05-06-2025 Urine culture [facility] Start: 05-04-2025 Bacteria identified in Urine by Culture Urine Culture [facility] Start: 05-04-2025 Urine culture [facility] Start: 01-23-2025 Bacteria identified in Urine by Culture Urine Culture [facility] Start: 01-23-2025 Urine culture [facility] Start: 08-03-2024 [facility] Start: 03-18-2024 [facility] Start: 05-25-2023 [facility] Start: 05-25-2023 [facility] Start: 01-08-2023 Blood chemistry [facility] Start: 01-08-2023 [facility] Start: 01-07-2023 Blood chemistry [facility] Start: 01-07-2023 End: 01-07-2023 [facility] Start: 01-06-2023 Patient referral to dietitian [facility] Start: 01-06-2023 Hospital admission [facility] Start: 01-06-2023 [facility] Start: 01-06-2023 Computed tomography of abdomen and pelvis with contrast [facility] Start: 01-06-2023 CT Abdomen and Pelvis W contrast IV [facility] Start: 01-06-2023 End: 01-06-2023 [facility] Start: 01-06-2023 Urine culture [facility] Start: 12-31-2022 End: 12-31-2022 [facility] Start: 11-09-2022 [facility] Start: 10-29-2022 [facility] Start: 08-22-2022 [facility] Start: 08-22-2022 [facility] Work Phone: Start: 08-20-2022 Hospital admission [facility] Start: 08-20-2022 [facility] Work Phone: Start: 08-20-2022 [facility] Work Phone: Start: 08-19-2022 Computed tomography of abdomen and pelvis with contrast CT abdomen pelvis w con [facility] Start: 08-19-2022 CT Abdomen and Pelvis W contrast IV [facility] Work Phone: Start: 08-19-2022 [facility] Work Phone: Start: 07-29-2022 Influenza vaccination INFLUENZA (Season Ended) [facility] Start: 06-09-2022 [facility] Work Phone: Start: 2022 CHLAMYDIA SCREENING (18-24) CHLAMYDIA SCREENING (18-24) [facility] Start: 2022 GC (GONORRHEA) SCREENING (18-24) GC (GONORRHEA) SCREENING (18-24) [facility] Start: 2022 HEPATITIS C SCREENING HEPATITIS C SCREENING [facility] Start: 2022 HIV SCREENING HIV SCREENING [facility] Start: 2020 MENINGOCOCCAL CONJUGATE (1 - 2-dose series) MENINGOCOCCAL CONJUGATE (1 - 2-dose series) [facility] Start: 2018 PEDS TO ADULT TRANSITION ANNUAL ASSESSMENT PEDS TO ADULT TRANSITION ANNUAL ASSESSMENT [facility] Start: 2016 Adult depression screening assessment DEPRESSION SCREENING [facility] Start: 2016 PEDS TO ADULT TRANSITION INITIAL DISCUSSION PEDS TO ADULT TRANSITION INITIAL DISCUSSION [facility] Start: 2015 HPV VACCINE (1 - 2-dose series) HPV VACCINE (1 - 2-dose series) [facility] Start: 2014 MENINGOCOCCAL B: Consider based on risk (1 of 2 - Risk Bexsero 2-dose series) MENINGOCOCCAL B: Consider based on risk (1 of 2 - Risk Bexsero 2-dose series) [facility] Start: 2011 Urine microalbumin profile DTAP,TDAP,TD (1 - Tdap) [facility] Start: 2009 COVID-19 VACCINE (#1) [facility] Amphetamines [Presen ce] in Urine [facility] Work Phone: Bacteria identified in Blood by Culture [facility] Bacteria identified in Urine by Culture [facility] Bacteria identified in Urine by Culture [facility] Barbiturates [Presen ce] in Urine [facility] Work Phone: Basophils [#/volume] in Blood by Automated count [facility] Basophils/100 leukoc ytes in Blood by Automated count [facility] Benzodiazepines [Pre sence] in Urine [facility] Work Phone: Bilirubin measurement, urine [facility] Work Phone: Cannabinoids [Presen ce] in Urine by Screen method [facility] Work Phone: Choriogonadotropin ( test) [Presence] in Urine [facility] Work Phone: Cocaine [Presence] in Urine [facility] Work Phone: Color of Urine [facility] Work Phone: Detection of hemoglobin [facility] Work Phone: Eosinophils/100 leuk ocytes in Blood by Automated count [facility] Erythrocyte distribu tion width [Ratio] by Automated count [facility] Erythrocytes [#/volu me] in Blood [facility] Glucose [Mass/volume ] in Urine by Test strip [facility] Work Phone: Hematocrit [Volume F raction] of Blood [facility] Hemoglobin [Mass/vol ume] in Blood [facility] Homogenous nuclear A b pattern [Titer] in Serum [facility] Work Phone: Leukocytes [#/volume ] corrected for nucleated erythrocytes in Blood by Automated coun [facility] Leukocytes [#/volume ] in Blood [facility] Lymphocytes [#/volum e] in Blood by Automated count [facility] Lymphocytes/100 leuk ocytes in Blood by Automated count [facility] MCH [Entitic mass] b y Automated count [facility] MCHC [Mass/volume] b y Automated count [facility] MCV [Entitic volume] by Automated count [facility] Measurement of keton es in urine using dipstick [facility] Work Phone: Monocytes [#/volume] in Blood by Automated count [facility] Monocytes/100 leukoc ytes in Blood by Automated count [facility] Neutrophils [#/volum e] in Blood by Automated count [facility] Neutrophils/100 leuk ocytes in Blood by Automated count [facility] Nuclear Ab [Titer] in Serum [facility] Work Phone: Nucleated erythrocyt es [Presence] in Blood by Automated count [facility] Patient Education [facility] Work Phone: Patient referral [facility] Work Phone: Phencyclidine [Prese nce] in Urine [facility] Work Phone: Platelet mean volume [Entitic volume] in Blood by Automated count [facility] Platelets [#/volume] in Blood [facility] Protein measurement, urine [facility] Work Phone: SARS-CoV-2 (COVID-19 ) N gene [Presence] in Respiratory specimen by JANAK with probe detection [facility] Work Phone: Urinalysis, specific gravity measurement [facility] Work Phone: Urine culture Urine Culture [facility] Urine culture [facility] Urine dipstick for nitrite [facility] Work Phone: Urine dipstick for s pecific gravity [facility] Work Phone: Urine pH test [facility] Work Phone: Urobilinogen concent ration, test strip measurement [facility] Work Phone: [facility] Immunizations Immunization Date Immunization Notes Care Provider Susan alvarado 01-17-2018 tetanus toxoid, redu yoni diphtheria toxoid, and acellular pertussis vaccine, adsorbed [facility] Work Phone: [facility] 01-07-2017 Human Papillomavirus 9-valent vaccine Colten Olexa Other [employer] [facility] [employer] Other 01-07-2017 HPV, unspecified formulation [facility] Work Phone: [facility] 09-06-2016 influenza, injectabl e, quadrivalent, preservative free Colten Olexa Other [facility] 09-06-2016 Human Papillomavirus 9-valent vaccine Colten Olexa Other [employer] Other 09-06-2016 HPV, unspecified formulation Services [facility] Work Phone: [facility] 07-01-2016 human papilloma viru s vaccine, quadrivalent Colten Olexa Other [facility] 07-01-2016 meningococcal polysaccharide (groups A, C, Y and W-135) diphtheria toxoid conjugate vaccine (MCV4P) [employer] Olex[employer] Other [facility] 07-01-2016 tetanus toxoid, redu yoni diphtheria toxoid, and acellular pertussis vaccine, adsorbed Colten Olex[employer] Other [facility] 09-01-2015 influenza, injectabl e, quadrivalent, preservative free Colten Olex[employer] Other [facility] 08-19-2014 influenza, injectabl e, quadrivalent, contains preservative [facility] Work Phone: [facility] 08-19-2014 influenza, injectabl e, quadrivalent, preservative free Colten Olexa Other [employer] Other 08-17-2013 influenza, seasonal, injectable, preservative free Colten Olexa Other [facility] Payers Date Payer Category Payer Self-pay 2019 Medicaid [employer] [id number] 2019-Present [phone] [address] [place] [address] Medicaid [id number] 2004 Unknown [id number] 2004 Unknown [id number] 2004 Unknown [id number] 2004 Unknown [id number] 2004 Unknown [id number] [id number] 2004 Unknown [id number] 2004 Unknown [id number] 2004 Unknown [id number] [id number] 1969 Unknown [id number] [id number] 1969 Unknown [id number] 1959 Medicaid [id number] Medicaid [id number] Medicaid [id number] Unknown [id number] Unknown [id number] Unknown [id number] Unknown [id number] Unknown [id number] Unknown [id number] Unknown [id number] Unknown [id number] [id number] Unknown [id number] Unknown [id number] Social History Date Type Detail Facility Start: 10-09-2021 End: 03-13-2024 Tobacco smoking status PAIS Never smoked tobacco [facility] Start: 10-09-2021 Tobacco use and exposure Smokeless tobacco non-user [facility] Start: 10-09-2021 Alcohol intake Lifetime non-d isael (finding) [facility] Start: 10-09-2021 History SDOH Alcohol Frequency 1 [facility] Start: 2004 Sex Assigned At Not on file C [facility] Start: 06-09-2022 End: 08-03-2024 Tobacco smoking status PAIS Smoker (finding) [facility] Start: 2004 Sex Assigned At Female F [facility] Start: 08-18-2022 End: 10-28-2024 Tobacco smoking status PAIS Current some day smoker [facility] Start: 01-06-2023 Tobacco smoking status NHIS Ex-smoker (finding) [facility] Sex Assigned At [facility] Tobacco smoking status Never [facility] Start: 01-24-2025 End: 05-07-2025 Sex Female (finding) [facility] NEGATED: Highlighted row [facility] Medical Equipment Procedure Code Equipment Code Equipment Origin al Text Equipment Identifier Dates Arthroscopy, knee Tendon/ligamen t bone anchor, non-bioabsorbable [id number] FDA Start: 05-25-2023 Arthroscopy, knee Soft-tissue/me sh anchor, non-bioabsorbable [id number] FDA Start: 05-25-2023 Arthroscopy, knee Tendon/ligamen t bone anchor, bioabsorbable [id number] FDA Start: 05-25-2023 Goals Date Patient Goal Desired Activity /State Functional Status Date Assessment Result Facility 01-16-2025 Functional Status N[facility] 07-30-2024 Functional Status N[facility] 03-15-2024 Functional Status N[facility] 03-13-2024 Functional Status N[facility] 01-07-2023 Functional status Patient at Baseline [facility] Work Phone: 01-06-2023 Functional status Patient at Baseline [facility] Work Phone: 08-22-2022 Functional status Patient at Baseline [facility] Work Phone: Mental Status Date Assessment Result Facility 01-07-2023 Cognitive function Patient at Baseline [facility] Work Phone: 01-06-2023 Cognitive function Patient at Baseline [facility] Work Phone: 08-22-2022 Cognitive function Patient at Baseline [facility] Work Phone: Clinical Notes 09-28-2015 [...] your activities and whether you should start kfbsi-ie-wemapl exercises for your injury. Ice Ice your [...] provider. Document Revised: 2021 Document Reviewed: 08/04/2018 [employer] Patient Education 2020 [employer] 01/16/2025 20:36:16 Contusion Contusion A contusion [...] sitting or lying down. General instructions Take aemi-xvf-onhfhbm and prescription medicines only as told by [...] provider. Document Revised: 05/02/2023 Document Reviewed: 05/02/2023 [employer] Patient Education 2023 [employer] 01/16/2025 20:36:16 Fall Prevention in the Home, Adult, Zzsa-eg-Qaaa Fall Prevention in the Home, Adult Falls [...] Keep items that you use often in dxok-kx-tesva places. Lower the shelves around your home [...] of the way. Do not use floor guatemalan or wax that makes floors slippery. What [...] for Disease Control and PreventionANASTACIO: cdc.gov National [place] on Aging: jacob.nih.gov National [place] on Aging: jacob.nih.gov Contact a doctor if: [...] provider. Document Revised: 07/18/2023 Document Reviewed: 07/18/2023 [employer] Patient Education 2023 [employer]. Follow Up Care 01/16/2025 17:51:58 With:MODESTA CHAND Address: [address] [place] [id number] [phone] Business (1) When:2025 20:14:58 Comments:Call Dr for diagnosis based follow up [facility] 01-16-2025 Note ED Patient Education Note Caregiving [...] Keep items that you use often in kamf-rc-nizzg places. Lower the shelves around your home [...] the way. ??? Do not use floor guatemalan or wax that makes floors slippery. What [...] Control and Prevention, [place]: cdc.gov ??? National [place] on Aging: jacob.nih.gov ??? National [place] on Aging: jacob.nih.gov Contact a doctor if: [...] will go away. (more content not included)... [facility] 08-01-2024 Note ED Patient Education Note Gastroenterology [...] such as yogurt. General instructions ? Take hddn-orm-xhkbphm and prescription medicines only as told by [...] provider. Document Revised: 07/29/2022 Document Reviewed: 07/29/2022 [employer] Patient Education ? 2023 [employer] Nausea and Vomiting, Adult Nausea is [...] has water adde (more content not included)... [facility] 07-31-2024 Hospital Discharg e instructions Patient Education [...] water added (diluted fruit juice). Eat bland, dlyo-mz-zsqpxm foods in small amounts as you are able. These foods include bananas, applesauce, rice, lean meats, toast, and crackers. Avoid fluids that contain a lot of sugar or caffeine, such as energy drinks, sports drinks, and soda. Avoid alcohol. Avoid spicy or fatty foods. General instructions Take jiew-jji-ghfsthu and prescription medicines only as told by your health care provider. Drink enough fluid to keep your urine pale yellow. Wash your hands often using soap and water for at least 20 seconds. If soap and water are not available, use hand nursing home aide. Make sure that everyone in your household [...] eating and drinking to prevent dehydration. Take wpdg-gcv-agdttug and prescription medicines only as told by [...] provider. Document Revised: 05/21/2022 Document Reviewed: 05/21/2022 [employer] Patient Education 2023 [employer] Follow Up Care 07/30/2024 19:27:35 With:FAMILIA CHAND Address: [facility] [address] [id number] Business (1) When:08/02/2024 [facility] 07-30-2024 Note ED Patient Education Note Gastroenterology [...] added (diluted fruit juice). ? Eat bland, zlmf-mn-axtwul foods in small amounts as you are able. These foods include bananas, applesauce, rice, lean meats, toast, and crackers. ? Avoid fluids that contain a lot of sugar or caffeine, such as energy drinks, sports drinks, and soda. ? Avoid alcohol. ? Avoid spicy or fatty foods. General instructions ? Take xajh-azr-wmtfzgx and prescription medicines only as told by your health care provider. ? Drink enough fluid to keep your urine pale yellow. ? Wash your hands often using soap and water for at least 20 seconds. If soap and water are not available, use hand nursing home aide. ? Make sure that everyone in your [...] and drinking to prevent dehydration. ? Take boai-rtl-uvrufux and prescription medicines only as told by [...] provider. Document Revised: 05/21/2022 Document Reviewed: 05/21/2022 [employer] Patient Education ? 2023 [employer]. [facility] 07-30-2024 Evaluation + Plan note Extrac venkata [...] Nausea/Vomiting, # 16 tab(s), Refills(s) 0, Pharmacy: [facility]/pharmacy #[id number], 157, cm, 07/30/24 19:37:00 EDT, Height/Length Dosing, 96.1, kg, 07/30/24 19:37:00 EDT, Weight Dosing promethazine, 12.5 mg = 1 tab(s), Oral, q8hr, PRN as needed for nausea/vomiting, second line, # 10 tab(s), Refills(s) 0, Pharmacy: [facility]/pharmacy #[id number], 157, cm, 07/30/24 19:37:00 EDT, Height/Length Dosing, 96.1, kg, 07/30/24 19:37:00 EDT, Weight Dosing promethazine, 12.5 mg = 1 supp, Rectal, q8hr, PRN as needed for nausea/vomiting, 3rd line, # 6 EA, Refills(s) 0, Pharmacy: [facility]/pharmacy #[id number], 157, cm, 07/30/24 19:37:00 EDT, [...] Lipase Level Magnesium Level Saline Lock Insert [facility] 04-18-2024 Hospital Discharge instructions Patient Education 03/15/2024 [...] careprovider. Do not use recreational drugs. Take igjn-sdh-wkifedu and prescription medicines only as told by [...] provider. Document Revised: 06/08/2022 Document Reviewed: 06/08/2022 [employer] Patient Education 2022 [employer]. 03/15/2024 13:49:41 Nausea and Vomiting, Adult Nausea [...] water added (diluted fruit juice). Eat bland, ovpc-kf-ynxtjq foods in small amounts as you are able. These foods include bananas, applesauce, rice, lean meats, toast, and crackers. Avoid fluids that contain a lot of sugar or caffeine, such as energy drinks, sports drinks, and soda. Avoid alcohol. Avoid spicy or fatty foods. General instructions Take tstb-ypm-gquadeq and prescription medicines only as told by your health care provider. Drink enough fluid to keep your urine pale yellow. Wash your hands often using soap and water for at least 20 seconds. If soap and water are not available, use hand nursing home aide. Make sure that everyone in your household [...] eating and drinking to prevent dehydration. Take wbmj-kzj-xdhdcnv and prescription medicines only as told by [...] provider. Document Revised: 05/21/2022 Document Reviewed: 05/21/2022 [employer] Patient Education 2022 [employer]. Follow Up Care 03/15/2024 10:34:05 With:Kirk Serrano Address:Unknown When:03/22/2024 13:33:04 Comments:Make sure to follow-up with Dr. Serrano at the surgery clinic in 1 week as instructed. Return to the emergency room if you develop chest pain, shortness of breath or any symptoms. [facility]04-18-2024 Evaluation + Plan noteExtracted from: Title:ED Note [...] CT Chest w/ Contrast eGFR Magnesium Level [facility]04-17-2024 Hospital Discharge instructions Patient Education 03/13/2024 22:27:59 Nausea and Vomiting, Adult, Abtr-fu-Faep Nausea and Vomiting, Adult Nausea is feeling [...] fruit juice). ?Low-calorie sports drinks. Eat bland, jins-re-jjxhqx foods in small amounts as you are able, such as: ?Bananas. ?Applesauce. ?Rice. ?Low-fat (lean) meats. ?[place]. ?Crackers. Avoid drinking fluids that have a lot of sugar or caffeine in them. This includes energy drinks, sports drinks, and soda. Avoid alcohol. Avoid spicy or fatty foods. General instructions Take ptbp-lds-nzfreoq and prescription medicines only as told by your doctor. Drink enough fluid to keep your pee (urine) pale yellow. Wash your hands often with soap and water for at least 20 seconds. If you cannot use soap and water, use hand nursing home aide. Make sure that everyone in your home [...] your doctor about eating and drinking. Take ybiw-lnx-jdgbpvc and prescription medicines only as told by your doctor. Contact your doctor if your symptoms get worse or you have new symptoms. Keep all follow-up visits. This information is not intended to replace advice given to you by your health care provider. Make sure you discuss any questions you have with your health care provider. Document Revised: 05/21/2022 Document Reviewed: 05/21/2022 [employer] Patient Education 2022 [employer]. 03/13/2024 22:27:59 Muscle Strain, Oqvm-zb-Hivt Muscle Strain A muscle strain, or pulled [...] is not too tight. General instructions Take vuhh-ewh-jaxcobd and prescription medicines only as told by [...] provider. Document Revised: 02/01/2022 Document Reviewed: 02/01/2022 [employer] Patient Education 2022 [employer]. Follow Up Care 03/13/2024 17:33:30 With:MODESTA ARCHIBALD Address: [address] [place] [phone] Business (1) When:03/16/2024 Comments:You can use the medications as prescribed as needed for pain, nausea. Please follow-up with your primary care doctor for further evaluation and management. Please return to the ED if you develop chest pain, difficulty breathing or if any concerning signs or symptoms. [facility]04-16-2024 Evaluation + Plan noteExtracted from: Title:ED Note [...] for 3 day(s), 7 tab(s), Refill(s) 0, [facility]/pharmacy #[id number], 160, cm, 03/13/24 17:38:00 EDT, [...] day(s), # 9 tab(s), Refills(s) 0, Pharmacy: [facility]/pharmacy #[id number], 160, cm, 03/13/24 17:38:00 EDT, Height/Length Dosing, 95.5, kg, 03/13/24 17:38:00 EDT, Weight Dosing morphine, 4 mg = 1 mL, Injection, IV Push, Once, Stop date 03/13/24 19:50:00 EDT, STAT, Start date 03/13/24 19:50:00 EDT, 03/13/24 19:50:00 EDT naproxen, 500 mg = 1 tab(s), Oral, BID, PRN for pain, # 20 tab(s), Refills(s) 0, Pharmacy: [facility]/pharmacy #[id number], 160, cm, 03/13/24 17:38:00 EDT, Height/Length Dosing, 95.5, kg, 03/13/24 17:38:00 EDT, Weight Dosing orphenadrine, 60 mg = 2 mL, Injection, IV Push, Once, Stop date 03/13/24 20:27:00 EDT, STAT, Start date 03/13/24 20:27:00 EDT, 03/13/24 20:27:00 EDT promethazine, 25 mg = 1 supp, Rectal, q6hr, PRN Nausea/Vomiting, # 6 EA, Refills(s) 0, Pharmacy: [facility]/pharmacy #[id number], 160, cm, 03/13/24 17:38:00 EDT, [...] kg, 2.06, m2 XR Chest 2 Views [facility]07-06-2023 Evaluation note* Encounter Date Diagnosis Assessment Notes [...] Other specified postprocedural states (ICD-10 - Z98.890) [facility] Other 06-27-2023 Evaluation note* Encounter Date Diagnosis Assessment Notes Treatment Notes Treatment Clinical Notes Apr, Other specified postprocedural states (ICD-10 - Z98.890) [facility] Other 06-26-2023 Evaluation note* Encounter Date Diagnosis [...] S82.111A) Apr, Pre-op exam (ICD-10 - Z01.818) [facility] Other 02-10-2023 History and physical note Author Eliana Bautista [facility] January 07, 2023 2:11am Note Date/Time January 06, 2023 5 :30pm [facility] [address] [place] [address] Hospitalist H&P Signed Patient: Pili Parikh MR#: [id number] : 2005 Acct:[id number] Age/Sex: 17 / F Adm Date: 3 Loc: Room: [address] [place] [address] Type: ADM INOo Attending Dr: Eliana Bautista MD Copies to: [facility] FRANKY Starkey MD~ HPI DATE [...] unless noted in the HPI or below [facility] Attestation Statement: The following information was validated [...] promethazine 25 mg rectal suppository 25 mg AK Q6H PRN Nausea #10 supp 01/02/23 [Rx [...] % (Auto) 19.9 % (.) 01/06/23 14:20 [place] % (Auto) 7.4 % (.) 01/06/23 14:20 Eos % (Auto) 2.3 % (.) 01/06/23 14:20 Baso % (Auto) 0.3 % (.) 01/06/23 14:20 Nucleat RBC Rel Count 0.1 /100 WBC (0-0.5) 01/06/23 14:20 Neut # (Auto) 12.4 x10E3/uL (1.2-7.7) H 01/06/23 14:20 Lymph # (Auto) 3.5 x10E3/uL (1.20-4.8) 01/06/23 14:20 [place] # (Auto) 1.3 x10E3/uL (0.1-1.00) H 01/06/23 [...] pH 6.5 (5.0-9.0) 01/06/23 16:10 Ur Specific Concord 1.027 (1.001-1.030) 01/06/23 16:10 Urine Protein 100 [...] signed by Eliana Bautista MD> 01/07/23 021 [facility] Work Phone: 1(450) 216-464609-24-2022 Progress note Author Gregorio Carey [facility] August 21, 2022 5:01pm Note Date/Time August 21, 2022 5:01pm [facility] [address] [place] [address] Hospitalist Progress Note Signed Patient: Pili Parikh MR#: [id number] : 2005 Acct:[id number] Age/Sex: 17 / F Adm Date: 2 Loc: 3T Room: [address] [place] [address] Type: ADM IN Attending Dr: Gregorio Carey [...] alot of discomfort. She recalls that the kitchenhand told her that in warm water against [...] 1 Gm/10 Ml [facility] PO 08/22/23 06:59 [facility]ID[facility] - Hospitalist Assessment/Plan (1) Intractable [...] signed by Gregorio Carey DO> 08/21/22 1701 [facility] Work Phone: 1(753) 700-639309-23-2022 History and physical note Author Gregorio Carey [facility] August 20, 2022 8:17pm Note Date/Time August 20, 2022 8:17pm [facility] [address] [place] [address] Hospitalist H&P Signed Patient: Pili Parikh MR#: [id number] : 2005 Acct:[id number] Age/Sex: 17 / F Adm Date: 2 Loc: Room: [address] [place] [address] Type: ADM IN Attending Dr: Gregorio Carey DO Copies to: [facility] Senior Gregorio Carey DO~ HPI DATE OF [...] % (Auto) 11.5 % (.) 08/20/22 16:21 [place] % (Auto) 3.7 % (.) 08/20/22 16:21 Eos % (Auto) 0.3 % (.) 08/20/22 16:21 Baso % (Auto) 0.4 % (.) 08/20/22 16:21 Neut # (Auto) 9.2 x10E3/uL (1.2-7.7) H 08/20/22 16:21 Lymph # (Auto) 1.3 x10E3/uL (1.20-4.8) 08/20/22 16:21 [place] # (Auto) 0.4 x10E3/uL (0.1-1.00) 08/20/22 16:21 [...] <Electronically signed by Gregorio Carey DO> 08/20/222016 [facility] Work Phone: 1(828) 157-557106-19-2022 Miscellaneous Notes* Telephone Encounter - Luana Mak [...] if she can find a way to [facility], she will go there. Reason for Disposition Chest pain [1] Chest pain lasts > 5 minutes AND [2] described as crushing, pressure-like, or heavy Protocols used: ABDOMINAL PAIN - VYCPS-CEWUL-UE, CHEST [id number]-[id number]-GO documented in [facility] encounter[facility]12-[facility]-2021 NoteHNO ID: [id number] Author: Rolando Wooten MD Service: ? Author [...] completed when applicable. PROCEDURE NOTE: IANDD right SHAKE FEEDER Risks, benefits, personnel and alternatives were explained. The patient wished to proceed. S/he was re-identified and a time out obtained. PROCEDURE drainage right SHAKE FEEDER PREOPERATIVE DIAGNOSIS: right peritonsillar abscess POSTOPERATIVE DIAGNOSIS tonsillitis without pus in right peritonsillar area INDICATIONS: chronic right throat pain, worsening, concern for right SHAKE FEEDER at outside facility on scan . Drainage [...] no complication. MD Rolando Cherry, [facility]11-12-2021 NoteHNO ID: [id number] Author: Rolando Wooten MD Service: ? 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 Medical History intermittent asthma Medical History lactose intolerance Medical History POTS diag 09/2015 Surgical History appendectomy 2019 Hospitalization History strepthroat, uri, dehydr ation, otitis media 2004 Hospitalization History dehydtation 2006 Hospital[place] History [facility] [place] 09/12- Hospitalization History 3 days vomitting blood 0 01/2017 Hospitalization History vomiting, abd pain, dehy dration [facility] [place] 07/22-07/27/2017 Hospitalization History RBC 08/14 [facility] Other Evaluation noteNo assessment information available [facility] Work Phone: Evaluation note* Diagnosis Onset Date Resolution Status Nausea & vomiting acute [facility] Work Phone: Evaluation note* Diagnosis Onset Date Resolution Status Dehydration acute Hypokalemia acute Intractable nausea and vomiting acute Nausea & vomiting acute [facility] Work Phone: Evaluation note* Diagnosis Onset Date Resolution Status Abdominal pain acute Acute hypokalemia acute Chest pain acute Dehydration acute Hypokalemia acute Hypovolemia acute Beverley-Cotton tear acute Nausea & vomiting acute [facility] Work Phone: History and physical note Author Eliana Bautista [facility] January 07, 2023 2:11am Note Date/Time January 06, 2023 5 :30pm [facility] [address] [place] [address] Hospitalist H&P Signed Patient: Pili Parikh MR#: [id number] : 2005 Acct:[id number] Age/Sex: 17 / F Adm Date: 3 Loc: Room: [address] [place] [address] Type: ADM INOo Attending Dr: Eliana Bautista MD Copies to: [facility] FRANKY Starkey MD~ HPI DATE [...] unless noted in the HPI or below [facility] Attestation Statement: The following information was validated [...] promethazine 25 mg rectal suppository 25 mg AK Q6H PRN Nausea #10 supp 01/02/23 [Rx [...] % (Auto) 19.9 % (.) 01/06/23 14:20 [place] % (Auto) 7.4 % (.) 01/06/23 14:20 Eos % (Auto) 2.3 % (.) 01/06/23 14:20 Baso % (Auto) 0.3 % (.) 01/06/23 14:20 Nucleat RBC Rel Count 0.1 /100 WBC (0-0.5) 01/06/23 14:20 Neut # (Auto) 12.4 x10E3/uL (1.2-7.7) H 01/06/23 14:20 Lymph # (Auto) 3.5 x10E3/uL (1.20-4.8) 01/06/23 14:20 [place] # (Auto) 1.3 x10E3/uL (0.1-1.00) H 01/06/23 [...] pH 6.5 (5.0-9.0) 01/06/23 16:10 Ur Specific [place] 1.027 (1.001-1.030) 01/06/23 16:10 Urine Protein 100 [...] Stout> 01/06/23 1817 <Electronically signed by Eliana Batuista MD> 01/07/23 0211 [facility] Work Phone: Hospital course Narrative No data available for this section [facility] Work Phone: Hospital Discharge instructions Additional Instructions Follow-up with your primary care doctor Return to ED if develop worsening symptoms or concernsSum[facility] Work Phone: Hospital Discharge instructions Additional Instructions Follow-up with your primary care doctor Return to the ED if you develop worsening symptoms or [facility] Work Phone: Hospital Discharge instructions Additional Instructions Take Phenergan as prescribed for nausea vomiting. Take Motrin and Tylenol as needed for muscle aches and pains. Take Carafate as prescribed.[facility] Work Phone: Hospital Discharge instructions Additional Instructions [...] you should first call your surgeon at [phone] for advice. If your are unable to contact your surgeon, seek help from a hospital emergency room. [facility] Work Phone: Hospital Discharge instructions Additional [...] with your family physician as soon as possible.[facility] Work Phone: Progress note No data available for this section [facility] Summary Purpose Family History No Family History [...] DATE CREATED AUTHOR AUTHOR'S ORGANIZ ATION 07/14/2018 [facility] DATE CREATED AUTHOR AUTHOR'S ORGANIZ ATION 01/04/2022 [facility] DATE CREATED AUTHOR AUTHOR'S ORGANIZ ATION 02/02/2023 [facility] DATE CREATED AUTHOR AUTHOR'S ORGANIZ ATION 07/30/2024 [facility] DATE CREATED AUTHOR AUTHOR'S ORGANIZ ATION 08/02/2024 [facility] DATE CREATED AUTHOR AUTHOR'S ORGANIZ ATION 08/05/2024 [facility] DATE CREATED AUTHOR AUTHOR'S ORGANIZ ATION 01/18/2025 [facility] DATE CREATED AUTHOR AUTHOR'S ORGANIZ ATION 01/23/2025 [facility] DATE CREATED AUTHOR AUTHOR'S ORGANIZ ATION 05/10/2025 [facility] Source Comments (unrecognize d section and content) In the event this informatio n is protected by the Federal Confidentiality of Alcohol and Drug Abuse Patient Records regulations: The Federal rules restrict any use of the information to criminally investigate or prosecute any alcohol or drug abuse patient.[facility] Reason for Visit (unrecogniz ed section and content) Reason Comments Abdominal Pain Care Teams (unrecognized sec tion and content) Team Status: Inactive Member Role Status [facility] Primary Care Provider MILY Bishop Attending Provide r Active Team Status: Inactive Member Role Status Dates [facility] Primary Care Provider Active Modesta Leeanna Chand , REAL ESTATE ASSESSOR-C Attending Provide r Active Team Status: Inactive Member Role Status Dates Services [facility] Primary Care Provider Active Brennen Britt MD Attending Provider Active Team Status: Inactive Member Role Status Dates [facility] Primary Care Provider Active Art Bianchi , DO Emergency Provider Active Team Status: Inactive Member Role Status Dates [facility] Primary Care Provider Active Ravi Arguello , DO Emergency Provider Active Team Status: Inactive Member Role Status Dates [facility] Primary Care Provider Active Ender Donovan , Emergency Provider Active Team Status: Inactive Member Role Status Dates [facility] Primary Care Provider Active Gilson Castro DO Emergency Provider Active Team Status: Active Member Role Status [facility] Primary Care Provider Ac tive Team Status: Inactive Member Role Status [facility] Primary Care Provider Ac latesha Rivera APRN Emergency Provider Active Team Status: Inactive Member Role Status [facility] Primary Care Provider Ac latesha Fry Jr, MD Emergency Provider Active Team Status: Inactive Member Role Status [facility] Primary Care Provider Ac latesha Castro , DO Emergency Provider Active Team Status: Active Member Role Status [facility] Primary Care Provider Ac latesha Castro , DO Emergency Provider Active Gregorio Carey , DO Admit Provider, Attending Pr ovider Active Team Status: Inactive Member Role Status [facility] Primary Care Provider Ac latesha Castro , DO Emergency Provider Active Gregorio Aurelio , DO Admit Provider, Attending Pr ovider Active Team Status: Inactive Member Role Status [facility] Primary Care Provider Ac latesha Arguello , DO Emergency Provider Active Team Status: Inactive Member Role Status Dates Art Bianchi DO Emergency Provider Active Services [facility] Primary Care Provider Ac tive Team Status: Inactive Member Role Status [facility] Primary Care Provider Ac latesha Bolanos DO Emergency Provider Active Team Status: Inactive Member Role Status [facility] Primary Care Provider Ac latesha Bianchi , DO Emergency Provider Active Team Status: Inactive Member Role Status Dates [facility] Primary Care Provider Active Dixon Newberry MD Emergency Provider Active Team Status: Active Member Role Status Dates [facility] Primary Care Provider Active Team Status: Inactive Member Role Status Dates [facility] Primary Care Provider Active Federico Randolph DO Emergency Provider Active Team Status: Active Member Role Status Dates [facility] Primary Care Provider Active Rd Brown PA-C Emergency Provider Active Eliana Bautista MD Admit Provider, Attending Provider Active Team Status: Inactive Member Role Status Dates [facility] Primary Care Provider Active Rd Brown PA-C Emergency Provider Active Eliana Bautista MD Admit Provider, Attending Provider Active Team Status: Inactive Member Role Status Dates [facility] Primary Care Provider Active Colten Miller MD Attending Provider Active Team Status: Inactive Member Role Status Dates [facility] Primary Care Provider Active Start: March 18, 2024 End: March 19, 2024 Femi Benitez MD Emergency Provider Active Star t: March 18, 2024 End: March 19, 2024 Team Status: Inactive Member Role Status Dates [facility] Primary Care Provider Active Start: August 03, 2024 End: August 04, 2024 Ania Watson MD Emergency Provider Active Start: August 03, 2024 End: August 04, 2024 Team Status: Active Member Role Status Dates Services [facility] Primary Care Provider Active [...] BE BASED ON THE PRIMARY CLINICAL RECORDS. [facility] [employer] [facility]. provides no warranty or guarantee of the accuracy or completeness of information in this document.
[2025-08-23] MEDS: PROMETHAZINE HCL 25 MG in 0.9 % SODIUM CHLORIDE 50 ML 204 MG IV (20:44)
[2025-08-23] MEDS: DIPHENHYDRAMINE HCL 50 MG/ML VIAL IVP (20:44)
[2025-08-23] MEDS: 0.9 % SODIUM CHLORIDE 1,000 ML 999 ML IV (20:44)
[2025-08-23 21:04] LABS: Hematocrit 44.6 % (36.0-48.0); Hemoglobin 15.3 g/dL (12.0-16.0); Immature Granulocytes Abs Auto 0.08 10^3/uL (0.00-0.03); Immature Granulocytes Pct Auto 0.5 % (0.0-0.5); Lymphocytes Absolute Auto 1.8 10^3/uL (1.2-3.8); Mean Corpuscular HGB Conc 34.3 g/dL (29.9-35.2); Mean Corpuscular Hemoglobin 29.5 pg (26.7-34.0); Mean Corpuscular Volume 86.1 fL (81.0-99.0); Platelet Count 352 10^3/uL (150-450); Red Blood Count 5.18 10^6/uL (4.20-5.40); White Blood Count 14.6 10^3/uL (4.0-11.0)
[2025-08-23 21:19] LABS: Alanine Aminotransferase 42 U/L (14-59); Albumin Globulin Ratio 1.2; Albumin Level 4.9 g/dL (3.4-5.0); Alkaline Phosphatase 84 U/L (46-116); Anion Gap 12.0; Aspartate Amino Transferase 20 U/L (15-37); Blood Urea Nitrogen 26.0 mg/dL (7.0-18.0); Calcium 9.7 mg/dL (8.5-10.1); Carbon Dioxide 31.9 mmol/L (21.0-32.0); Chloride 96 mmol/L (98-107); Estimated GFR (African America >60 (>=60 mL/min/1.73m^2); Estimated GFR (Non-African Ame >60 (>=60 mL/min/1.73m^2); Globulin 4.2 g/dL; Glucose 102 mg/dL (74-106); Lipase 36.0 U/L (16.0-77.0); Sodium 137 mmol/L (136-145); Total Protein 9.1 g/dL (6.4-8.2)
[2025-08-23 21:21] LABS: Lactate/Lactic Acid 1.2 mmol/L (0.4-2.0)
[2025-08-23 21:26] LABS: Potassium 2.9 mmol/L (3.5-5.1)
[2025-08-23 21:28] VITALS: TEMP 37.2
[2025-08-23] MEDS: POTASSIUM CHLORIDE IN WATER 10 MEQ/100 ML PREMIX 100 MEQ IV (22:14)
[2025-08-23 22:20] VITALS: BP 138/82; PULSE 52; O2SAT 99
--- NOTE | 2025-08-23 22:36 | PC.NURSE ---
Patient requests to stop IV potassium as it is burning, rate down and patient still asks to stop. Dr. Steinberg notified.
[2025-08-23] MEDS: POTASSIUM CHLORIDE 10 MEQ ER TABLET 40 MEQ PO (22:48)
== END 2025-08-23 23:00 | disposition home or self-care (01) ==
PROVIDERS: Emergency Provider Internal Medicine
DX: O21.9 Vomiting of pregnancy, unspecified (principal); O99.331 Smoking (tobacco) complicating pregnancy, first trimester; F17.200 Nicotine dependence, unspecified, uncomplicated; O99.281 Endocrine, nutritional and metabolic diseases complicating pregnancy, first trimester; E87.6 Hypokalemia; Z3A.01 Less than 8 weeks gestation of pregnancy; O99.411 Diseases of the circulatory system complicating pregnancy, first trimester; G90.A Postural orthostatic tachycardia syndrome [POTS]
CPT/HCPCS: 36415; 80053; 81001; 83605; 83690; 84703; 85025; 96361; 96365; 96367; 96375; 99285; J1200; J2550; J3480

== ENCOUNTER 2025-08-26 15:41 | Emergency (ER) | payer OTHER, SELFPAY ==
--- OUTSIDE RECORDS SUMMARY | 2022-02-09 14:35 | XMS_ITS | Continuity of Care Document ---
Author Organization [facility] Address [address] [place] [address] Phone Care Team Providers Care Coal Trammer Name Role Phone L[facility], Em Afshan Unavaila ble Allergies, Adverse [...] High Risk Nutrit Couns For Control Of [place] Dis May Oral Hygiene Instruction OFFICE/OUTPATIENT VISIT, EST HEPB VACC PED/ADOL 3 DOSE IM HIB VACCINE, PRP-T, IM DTAP VACCINE, < 7 YRS, IM MMR VACCINE, [place] Advance Directives Directive Yes / No Effective Date File Name No Information Encounters Encounter Description Practice Location Reason(s) For Visit Diagnoses Date Provider Providers Copied on Encounter [facility], [address] [place] [address], [id number], tel:[phone] [facility] No Information Lacho [facility] Em. [address] [place] [address], [id number], [place]. tel:[phone] [facility], [address] [place] [address], [id number], [place] tel:[phone] Dental Clinic [facility] [address] [place] [address], [id number], [place]. tel:[phone] [facility], [address] [place] [address], [id number], [place] tel:[phone] Dental Clinic filling (chief complaint) Encounter for screening for dental disorders [facility]. [address] [place] [address], [id number], [place]. tel:[phone] [facility], [address] [place] [address], [id number], tel:[phone] Dental Clinic Encounter for screening for dental disorders Shanti Holly. [address] [place], [place], [id number], [place]. tel:[phone] [facility], [address] [place], [place], [id number], [place] tel:[phone] Dental Clinic Dental New (chief complaint) Encounter for screening for dental disorders Shanti Holly. [address] [place], [place], [id number], [place]. tel:[phone] OFFICE/OUTPATI ENT VISIT, EST [facility], [address] [place], [place], [id number], [place] tel:[phone] [facility] No Information Albaro Barlwo. [address] [place], [place], [id number], [place]. tel:[phone] Family History Family Member Type Diagnosis Age [...] Covered democrat ID Diandra gamezelvia(s) D Medicaid [facility] [id number] Social History Type Description Quantity Date Captured [...]
--- OUTSIDE RECORDS SUMMARY | 2025-01-30 09:00 | XMS_ITS ---
Author Organization [employer] Address [address] [place] [address] Care Team Providers Care Mexican Food Cook Name Role Phone Modesta Lira Primary Care Provider KenzieDebrah Unavailable [phone] Modesta Chand Unavailable REASON FOR VISIT Pots disease, vomiting Social History Sex Assigned At : Social History Observation Description Sex Assigned At Female Encounters Encounter Location Date Provider Diagnosis [facility] [address] [place] [address] 01/30/2025 Modesta Chand Plan Of Treatment Next Appt Details Provider Name:Kelsey Espino, 08/28/2025 02:30:00 PM, [address] [place], [address], Progress Notes * PILI SEGURA ADOB: [birth year] (20 yo F)Acc No.[id number]:01/30/2025 Progress Note Patient: PILI PENALOZA Provider: Jesus Chand CNP :2005 A ge:20 Y S ex:Female Date:01/30/2025 Address:[address] [place], [place] Pcp:Modesta Lira Subjective: * Chief Complaints: * 1 . Pots disease, vomiting. * Medical History: Objective: * Vitals: Assessment: Plan: * Treatment: Care Plan: * Problems: * Images: * Electronic signature of Lorie Chand CNP on 08/26/2025 at 04:26 PM EDT Sign off status: Pending * Provider: Jesus Chand CNP Date: 0 01/30/2025 Generated for Yang huffman/Marcos/Lorraine on: 0 08/26/2025 04:26 PM EDT
--- OUTSIDE RECORDS SUMMARY | 2025-05-22 05:00 | XMS_ITS ---
Author Organization [employer] es Address [address] [place] [address] Care Team Providers Care Auto Refinisher Name Role Phone Modesta Lira Primary Care Provider [phone] Kelsey Espino Unavailable [phone] REASON FOR VISIT nexplanon removal Social History Sex Assigned At : Social History Observation Description Sex Assigned At Female Encounters Encounter Location Date Provider Diagnosis [place] [address] [place] [address] 05/22/2025 Kelsey Espino Plan Of Treatment Next Appt Details Provider Name:Kelsey Espino, 08/28/2025 02:30:00 PM, [address] [place], [address], Progress Notes * PILI SEGURA ADOB: [birth year] (20 yo F)Acc No.[id number]:05/22/2025 progress note Patient: PILI PENALOZA A Provider: Raf Espino :2005 A ge:20 Y S ex:Female Date:05/22/2025 Address:[address] [place], [place] Pcp:Modesta Lira Subjective: * Chief Complaints: * 1 . Nexplanon removal. * Medical History: Objective: * Vitals: Assessment: Plan: * Treatment: Care Plan: * Problems: * Images: * Electronic signature of Kina Espino NP on 08/26/2025 at 04:25 PM EDT Sign off status: Pending * Provider: Raf Espino Date: 0 05/22/2025 Generated for Yang huffman/Marcos/Lorraine on: 0 08/26/2025 04:25 PM EDT
--- OUTSIDE RECORDS SUMMARY | 2025-08-21 09:45 | XMS_ITS ---
Author Organization [facility] [employer] es Address [address] [place] [address] Care Team Providers Care Transit Clerk Name Role Phone Modesta Lira Primary Care Provider Kelsey Espino Unavailable [phone] Allergies Allergen (clinical drug ingredient) Drug/Non Drug Allergy documented on EMR Reaction Allergy Type Onset Date Status metoclopramide Reglan Facial Droop Drug Allergy Active REASON FOR VISIT positive test Medications Medication SIG (Take, Route, Fr equency, Duration) Notes Start Date End Date Status Promethazine HCl 25 MG 1 tablet as neede d Orally every 12 hrs prn Active Zofran 4 MG 1 tablet Orally twic e a day (bid) as needed (prn); Duration: 10 days PRN Active traZODone HCl 100 MG 1/2 to 1 tablet at bedtime for sleep when needed Orally Once a day; Duration: 30 days 05/13/2025 Ac tive Social History Sex Assigned At : Social [...] Negative Tobacco Control (Standard) Question Answer Notes Additional Findings: Tobacco user e-cigarette Problems Problem Type SNOMED Code ICD Code Onset Dates Problem Status W/U Status Risk Notes Problem Amenorrhea (68149866) Amenorrhea (N91.2) Active confirmed Vital Signs Height 62.5 in 08/21/2025 Weight 200 lbs 08/21/2025 BMI 35.99 kg/m2 08/21/2025 Temperature 98 degrees Fahrenheit 08/21/2025 Blood pressure systolic 145 mm Hg 08/21/20 Blood pressure diastolic 81 mm Hg 025 Oximetry 97 % 08/21/2025 Heart Rate 93 /min 08/21/2025 Respiratory Rate 20 /min 08/21/2025 Encounters Encounter Location Date Provider Diagnosis [facility] [address] [place] [address] 08/21/2025 Kelsey Kenzie Amenorrhea N91.2 and Nausea and vomiting, unspecified vomiting type R11.2 Assessments Encounter Date Diagnosis (ICD Code) Assessment Notes Treatment Notes Treatment Clinical Notes Section Notes 08/21/2025 Amenorrhea (ICD-10 - N91.2) HCG lab orders given to patient. Discussed initiating vitamin. Patient unable to leave urine specimen at todays visit. Will call with results from labs to discuss estimated gestation. Discussed scheduling new OB visit next week to discuss [facility] care. Patient agreeable and verbalizes understanding. 08/21/2025 Nausea and vomiting, unspecified vomiting type (ICD-10 - R11.2) Discussed taking OTC B6, B12 daily and Unisom at bedtime to help with symtpoms. Discussed treatments for nausea including natalie trista, peppermint, sea band, etc. Discussed if unable to keep fluids down for > 12 hours to go to ER. Patient verbalizes understanding. Plan Of Treatment Treatment Notes Assessment Notes Amenorrhea HCG lab orders given to patient. Discussed initiating vitamin. Patient unable to leave urine specimen at todays visit. Will call with results from labs to discuss estimated gestation. Discussed scheduling new OB visit next week to discuss [facility] care. Patient agreeable and verbalizes understanding. Nausea and vomiting, unspeci fied vomiting type Discussed taking OTC B6, B12 daily and Unisom at bedtime to help with symtpoms. Discussed treatments for nausea including natalie trista, peppermint, sea band, etc. Discussed if unable to keep fluids down for > 12 hours to go to ER. Patient verbalizes understanding. Pending Test Test Name Order Date Progesterone 08/21/2025 HCG,Qualitative Rfx to Quant 08/21/2025 Next Appt Details Follow Up: 1 Week, Reason: Provider Name:Kelsey Espino, 08/28/2025 02:30:00 PM, [address] [place], [address], Progress Notes * PILI SEGURA ADOB: [birth year] (20 yo F)Acc No.[id number]:08/21/2025 Progress Notes Patient: PILI PENALOZA A Provider: Raf rodríguezah Kenzie :2005 A ge:20 Y S ex:Female Date:08/21/2025 Address:[address] [facility] Pcp:Modesta Lira Subjective: * Chief Complaints: * P ositive test * HPI: D epression Screening: PHQ-2 (2015 Edition) L ittle interest or pleasure in doing things? N ot at all, F eeling down, depressed, or hopeless? N ot at all, T otal Score 0 . C onstitutional: Pt presents in office for confirmation. Pt states that she took 3 at home tests on 08-20-25 and all 3 came back positive. Pt states she can not recall when her last menstrural marino was. Pt states maybe last menstrual cycle was last month. Pt states Nexplanon was removed May 22 2025. Pt states nausea and vomiting started 3 days ago. Pt states this is her second . Patient states when she was 16, she miscarried early. * ROS: G eneral Review of Systems: General D enies fever, chills, weight loss. E yes D enies vision changes, no double vision or blurry vision. . H EENT D enies sore throat, ear pain., Denies fevers , chills, Denies nasal congestion, or pressure, Denies hoarseness, change in voice, difficulty swallowing. C ardiovascular D enies chest pain, palpitations, exertional dyspnea. R espiratory D enies cough, dyspnea, wheezing, sputum production, hemoptysis. G astrointestinal S ee HPI. G enitourinary D enies urgency, frequency, dysuria, hematuria.?Musculoskeletal D enies joint pain, myalgias. D ermatology D enies rashes or lesions. N eurological D enies any lightheadedness, dizziness, headache, new numbness or tingling in hands or feet. . * Medical History: * Surgical History: A ppendectomy EGD * Hospitalization/Major Diagno stic Procedure: P OTS N/V 07/2022VOMITING 2024see surgical * Family History: F ather: alive, diagnosed with Cancer. M other: alive, diagnosed with Cancer, Diabetes.?2 brother(s) - healthy. . mother epilespy, ovarian cancer, fibromyalgia Dad: diabetes, kidney cancer. * Social History: D rug/Alcohol: A DREA-C (Standard) D id you have a drink containing alcohol in the past year? N o,?Points 0 , I nterpretation N egative. G eneral: T ransition of Care E R/UC/hospital since last office visit? N o, S pecialist seen since last office visit? N o. B ehaviors affecting health P oor/Risky Behaviors: D enies-. S ubstance abuse/mental health issues of patient/family P atient - D enies. S ocial/Support Concerns P atient: Y es. A bility to understand healthcare/treatment?Patient: Viridiana Trinidad cheema aregiver: Viridiana cheema. C ommunication Barrier L anguage Barrier?: No. S exual Hx H ad sex in the last 12 months (vaginal, oral, or anal)? Y es, w ith M en only, U se protection? Y es, H ow often? M ost of the time, P revention Strategies discussed: C ondoms, H ave you ever had an STD? N o. T obacco Use: T obacco Control (Standard) A dditional Findings: Tobacco user e -cigarette. * Medications: T akingPromethazine HCl 25 MG Tablet 1 tablet as needed Orally every 12 hrs , Notes to Pharmacist: prnZofran 4 MG Tablet 1 tablet Orally twice a day (bid) as needed (prn) , Notes to Pharmacist: PRNtraZODone HCl 100 MG Tablet 1/2 to 1 tablet at bedtime for sleep when needed Orally Once a day Medication List reviewed and reconciled with the patientTaking Promethazine HCl 25 MG Tablet 1 tablet as needed Orally every 12 hrs , Notes to Pharmacist: prnTaking Zofran 4 MG Tablet 1 tablet Orally twice a day (bid) as needed (prn) , Notes to Pharmacist: PRNTaking traZODone HCl 100 MG Tablet 1/2 to 1 tablet at bedtime for sleep when needed Orally Once a day Medication List reviewed and reconciled with the patient * Allergies: R eglan: Facial Droop - Side Effectsno[Allergies Verified] Objective: * Vitals: H t: 62.5 in, Wt: 200 lbs, BMI:35.99Index, Temp: 98 F, BP: 145/81 mm Hg, SaO2:97%, HR: 93 /min, RR: 20 /min. * Examination: G eneral Examination: GENERAL APPEARANCE: A lert and oriented, in no acute distress, pleasant, mildly ill appearing. F PEREZ: s ymmetrical, well appearing. E YES: e xtra ocular muscles intact (EOMI) bilaterally, no discharge, pupils, equal, round, reactive to light and accomodation (PERRLA), sclera clear. C HEST: n ormal shape and expansion. N EUROLOGIC EXAM: a ppropriate for age. S KIN: m oist, warm, unremarkable, no rash. P SYCH g ood eye contact, oriented to person, oriented to place, oriented to time, appropriate mood and affect. Assessment: * Assessment: 1. A menorrhea - N91.2 (Primary) 2 . N ausea and vomiting, unspecified vomiting type - R11.2 Plan: * Treatment: 2. N ausea and vomiting, unspecified vomiting type Notes: Discussed taking OTC B6, B12 daily and Unisom at bedtime to help with symtpoms. Discussed treatments for nausea including natalie trista, peppermint, sea band, etc. Discussed if unable to keep fluids down for > 12 hours to go to ER. Patient verbalizes understanding. * Procedure Codes: 3 079F DIAST BP 80-89 MM [id number] RVW MEDS BY RX/ IN [id number] SYST BP >= 140 MM HG * Follow Up: 1 Week * Images: * Sign off status: Completed true * Provider: Raf Espino Date: 0 08/21/2025 Generated for Yang huffman/Marcos/Lorraine on: 0 08/26/2025 04:26 PM EDT History and Physical Notes * HPI (History of Present Illness) Category Sub-Category Detail Notes Category Not es Depression Screening PHQ-2 (2015 Edition) Little interest or pleasure in doing things?: Not at all Feeling down, depressed, or hopeless?: N ot at all Total Score: 0 Constitutional Pt presents in office for confirmation. Pt states that she took 3 at home tests on 08-20-25 and all 3 came back positive. Pt states she can not recall when her last menstrural marino was. Pt states maybe last menstrual cycle was last month. Pt states Nexplanon was removed May 22 2025. Pt states nausea and vomiting started 3 days ago. Pt states this is her second . Patient states when she was 16, she miscarried early. Examination Category Sub-Category Detail Notes Category Not es General Examination GENERAL APPEARANCE: Alert an d oriented, in no acute distress, pleasant, mildly ill appearing SKIN: moist, warm, unremar kable, no rash NEUROLOGIC EXAM: appropriate for age CHEST: normal shape and exp ansion PSYCH good eye contact, or iented to person, oriented to place, oriented to time, appropriate mood and affect FACE: symmetrical, well ap pearing EYES: extra ocular muscles intact (EOMI) bilaterally, no discharge, pupils, equal, round, reactive to light and accomodation (PERRLA), sclera clear
--- OUTSIDE RECORDS SUMMARY | 2025-08-22 17:04 | XMS_ITS ---
Author Name Auto Generated Organization OHIP Care Team Providers Care Deputy Administrator Name Role Phone Drew Steinberg Admitting Unavailable Drew Steinberg Attending Unavailable Jasmeet Dahl Admitting Unavailable Jasmeet Dahl Attending Unavailable Makayla Monk Attending Unavailable Makayla Monk Admitting Unavailable Rd Brown Admitting Unavailable Rd Brown Attending Unavailable [facility] Primary Care Unavaila August Walton Attending Unavailable Pradeep Preciado Attending Unavailable August Beck Attending Unavailable Federico Randolph Attending Unavailable Pradeep Preciado Attending Unavailable PROBLEMS DATE TYPE CONDITION / CODE ATTENDING STATUS ANDREW RCE 10/28/2024 Unknown Urinary tract infection, site not specified / N39.0(ICD-10) [facility] PROCEDURES No Procedure Records Found RESULTS ED PATIENT EDUCATION NOTE Observed: 07/30 9:56 PM Status: C Source: [facility] ED Patient Education Note Gastroenterology Nausea and [...] care provider about them. Eating and drinking ??? Take an oral rehydration solution (ORS). This is a drink that is sold at pharmacies and retail stores. ??? Drink clear fluids slowly and in small amounts as you are able. Clear fluids include water, ice chips, low-calorie sports drinks, and fruit juice that has water added (diluted fruit juice). ??? Eat bland, bksz-cz-ixzdrs foods in small amounts as you are able. These foods include bananas, applesauce, rice, lean meats, toast, and crackers. ??? Avoid fluids that contain a lot of sugar or caffeine, such as energy drinks, sports drinks, and soda. ??? Avoid alcohol. ??? Avoid spicy or fatty foods. General instructions ??? Take srhj-bla-kagoltv and prescription medicines only as told by your health care provider. ??? Drink enough fluid to keep your urine pale yellow. ??? Wash your hands often using soap and water for at least 20 seconds. If soap and water are not available, use hand pullman conductor. ??? Make sure that everyone in your household washes their hands well and often. ??? Rest at home while you recover. ??? Watch your condition for any changes. ??? Take slow and deep breaths when you feel nauseous. ??? Keep all follow-up visits. This is important. Contact a health care provider if: ??? Your symptoms get worse. ??? You have new symptoms. ??? You have a fever. ??? You cannot drink fluids without vomiting. ??? Your nausea does not go away after 2 days. ??? You feel light-headed or dizzy. ??? You have a headache. ??? You have muscle cramps. ??? You have a rash. ??? You have pain while urinating. Get help right away if: ??? You have pain in your chest, neck, arm, or jaw. ??? You feel extremely weak or you faint. ??? You have persistent vomiting. ??? You have vomit that is bright red or looks like black coffee grounds. ??? You have bloody or black stools (feces) or stools that look like tar. ??? You have a severe headache, a stiff neck, or both. ??? You have severe pain, cramping, or bloating in your abdomen. ??? You have difficulty breathing, or you are breathing very quickly. ??? Your heart is beating very quickly. ??? Your skin feels cold and clammy. ??? You feel confused. ??? You have signs of dehydration, such as: ? Dark urine, very little urine, or no urine. ? Cracked lips. ? Dry mouth. ? Sunken eyes. ? Sleepiness. ? Weakness. These symptoms may be an emergency. Get help right away. Call 911. ??? Do not wait to see if the symptoms will go away. ??? Do not drive yourself to the hospital. Summary ??? Nausea is the feeling that you have an upset stomach or that you are about to vomit. As nausea gets worse, it can lead to vomiting. Vomiting can make you feel weak and cause you to become dehydrated. ??? Follow instructions from your health care provider about eating and drinking to prevent dehydration. ??? Take pwfx-odr-qxcsfvn and prescription medicines only as told by your health care provider. ??? Contact your health care provider if your symptoms get worse, or you have new symptoms. ??? Keep all follow-up visits. This is important. This information is not intended to replace advice given to you by your health care provider. Make sure you discuss any questions you have with your health care provider. Document Revised: 05/21/2022 Document Reviewed: 05/21/2022 [employer] Patient Education ? 2023 [employer].Obstetrics and Gynecology Hyperemesis Gravidarum Hyperemesis gravidarum is a severe form of nausea and vomiting that happens during . Hyperemesis is worse than morning sickness. It may cause you to have nausea or vomiting all day for many days. It may keep you from eating and drinking enough food and liquids, which can lead to dehydration, malnutrition, and weight loss. Hyperemesis usually occurs during the first half (the first 20 weeks) of . It often goes away once a woman is in her second half of . However, sometimes hyperemesis continues through an entire . What are the causes? The cause of this condition is not known. It may be associated with: ??? Changes in hormones in the body during . ??? Changes in the gastrointestinal system. ??? Genetic or inherited conditions. What are the signs or symptoms? Symptoms of this condition include: ??? Severe nausea and vomiting that does not go away. ??? Problems keeping food down. ??? Weight loss. ??? Loss of body fluid (dehydration). ??? Loss of appetite. You may have no desire to eat or you may not like the food you have previously enjoyed. How is this diagnosed? This condition may be diagnosed based on your medical history, your symptoms, and a physical exam. You may also have other tests, including: ??? Blood tests. ??? Urine tests. ??? Blood pressure tests. ??? Ultrasound to look for problems with the placenta or to check if you are with more than one baby. How is this treated? This condition is managed by controlling symptoms. This may include: ??? Following an eating plan. This can help to lessen nausea and vomiting. ??? Treatments that do not use medicine. These include acupressure bracelets, hypnosis, and eating or drinking foods or fluids that contain natalie, natalie trista, or natalie tea. ??? Taking prescription medicine or nvxa-rsh-jpkdpku medicine as told by your health care provider. ??? Continuing to take vitamins. You may need to change what kind you take and when you take them. Follow your health care provider's instructions about vitamins. An eating plan and medicines are often used together to help control symptoms. If medicines do not help relieve nausea and vomiting, you may need to receive fluids through an IV at the hospital. Follow these instructions at home: To help relieve your symptoms, listen to your body. Everyone is different and has different preferences. Find what works best for you. Here are some things you can try to help relieve your symptoms: Meals and snacks ??? Eat 5?6 small meals daily instead of 3 large meals. Eating small meals and snacks can help you avoid an empty stomach. ??? Before getting out of bed, eat a couple of crackers to avoid moving around on an empty stomach. ??? Eat a protein-rich snack before bed. Examples include cheese and crackers, or a peanut butter sandwich made with 1 slice of whole-wheat bread and 1 tsp (5 g) of peanut butter. ??? Eat and drink slowly. ??? Try eating starchy foods as these are usually tolerated well. Examples include cereal, toast, bread, potatoes, pasta, rice, and pretzels. ??? Eat at least one serving of protein with your meals and snacks. Protein options include lean meats, poultry, seafood, beans, nuts, nut butters, eggs, cheese, and yogurt. ??? Eat or suck on things that have natalie in them. It may help to relieve nausea. Add ? tsp (0.44 g) ground natalie to hot tea, or choose natalie tea. Fluids It is important to stay hydrated. Try to: ??? Drink small amounts of fluids often. ??? Drink fluids 30 minutes before or after a meal to help lessen the feeling of a full stomach. ??? Drink 100% fruit juice or an electrolyte drink. An electrolyte drink contains sodium, potassium, and chloride. ??? Drink fluids that are cold, clear, and carbonated or sour. These include lemonade, natalie trista, lemon?resighini soda, ice water, and sparkling water. Things to avoid Avoid the following: ??? Eating foods that trigger your symptoms. These may include spicy foods, coffee, high-fat foods, very sweet foods, and acidic foods. ??? Drinking more than 1 cup of fluid at a time. ??? Skipping meals. Nausea can be more intense on an empty stomach. If you cannot tolerate food, do not force it. Try sucking on ice chips or other frozen items and make up for missed calories later. ??? Lying down within 2 hours after eating. ??? Being exposed to environmental triggers. These may include food smells, smoky rooms, closed spaces, rooms with strong smells, warm or humid places, overly loud and noisy rooms, and rooms with motion or flickering lights. Try eating meals in a well-ventilated area that is free of strong smells. ??? Making quick and sudden changes in your movement. ??? Taking iron pills and multivitamins that contain iron. If you take prescription iron pills, do not stop taking them unless your health care provider approves. ??? Preparing food. The smell of food can spoil your appetite or trigger nausea. General instructions ??? Salt Lick your teeth or use a mouth rinse after meals. ??? Take jnsq-zbm-hxhzkix and prescription medicines only as told by your health care provider. ??? Follow instructions from your health care provider about eating or drinking restrictions. ??? Talk with your health care provider about starting a supplement of vitamin B6. ??? Continue to take your vitamins as told by your health care provider. If you are having trouble taking your vitamins, talk with your health care provider about other options. ??? Keep all follow-up visits. This is important. Follow-up visits include visits. Contact a health care provider if: ??? You have pain in your abdomen. ??? You have a severe headache. ??? You have vision problems. ??? You are losing weight. ??? You feel weak or dizzy. ??? You cannot eat or drink without vomiting, especially if this goes on for a full day. Get help right away if: ??? You cannot drink fluids without vomiting. ??? You vomit blood. ??? You have constant nausea and vomiting. ??? You are very weak. ??? You faint. ??? You have a fever and your symptoms suddenly get worse. Summary ??? Hyperemesis gravidarum is a severe form of nausea and vomiting that happens during . ??? Making some changes to your eating habits may help relieve nausea and vomiting. ??? This condition may be managed with lifestyle changes and medicines as prescribed by your health care provider. ??? If medicines do not help relieve nausea and vomiting, you may need to receive fluids through an IV at the hospital. This information is not intended to replace advice given to you by your health care provider. Make sure you discuss any questions you have with your health care provider. Document Revised: 06/08/2021 Document Reviewed: 06/08/2021 [employer] Patient Education ? 2023 [employer]. ED PATIENT SUMMARY Observed: 08/22/2025 9:56 PM Status: C Source: [facility] ED Patient Summary [place] [id number] Patient Discharge Instructions Person Information Name: CORAL SEGURA Age: 20 Years Arrival Date: 08/22/2025 17:04:27 Discharge Diagnosis: 1:Abdominal pain; 2:Nausea & vomiting; 3:; Hyperemesis gravidarum; Left against medical advice Primary Care Physician: OLEG CALVIN CNP Provider Information Primary Provider: Federico Randolph DO Advanced Aluminum Siding Applicator:Sunday Johnson PA-C. The exam and treatment you received in the Emergency Department were for an urgent problem and are not intended as complete care. It is important that you follow up with a doctor, nurse practitioner, or physician???s administrative support assistant for ongoing care. If your symptoms become worse or you do not improve as expected and you are unable to reach your usual health care provider, you should return to the Emergency Department. We are available 24 hours a day. CORAL SEGURA has been given the following list of patient education materials, prescriptions and follow-up instructions: Follow-up Instructions: With: Address: When: [facility] [phone] In 3 days 08/25/2025 Comments: Follow-up with Kelsey your PHYSICAL SECURITY SPECIALIST at [facility][1]. Use nausea medications as prescribed. Eat multiple small meals a day. Increase your fluid intake. With: Address: When: OLEG CALVIN [address] [place] [address] [phone] Business (1) In 3 days 08/25/2025 Comments: Call the office of your primary care doctor to arrange for follow-up within the above-stated timeframe. Follow-up with your primary care doctor about this ED visit. You should review your labs, imaging, and diagnoses from this ED visit with your primary care physician. There are occasionally non-emergent findings that require additional follow-up after your ED visit. If you were prescribed medications you should discuss possible side-effects and drug interactions with your pharmacist. Call 911 or go to the nearest Emergency Department if you develop any new or worsening symptoms. In the event that this physician does not participate in your insurance network, please consult with your insurance company to find a nearby participating provider. Patient Education Materials: Hyperemesis Gravidarum; Nausea and Vomiting, Adult A MESSAGE TO ALL PATIENTS REGARDING OPIOIDS PRESCRIPTION OPIOIDS: WHAT YOU NEED TO KNOW Prescription opioids can be used to help relieve kivjuvht-xz-nezbsd pain and are often prescribed following a [...] guidance from the Food and Drug Administration (www.fda.gov/Drugs/ResourcesForYou). ??? Visit www.cdc.gov/drugoverdose to learn about the risks of opioids abuse and overdose. ??? If you believe you may be struggling with addiction, tell your health client care coordinator and ask for guidance or call [facility]???S National Helpline at 2-913-817-HELP. v Source: US Department of Health and Human Services/Center for Disease Control & Prevention [facility] Medications Given: Medication Dose Route Sodium Chloride 0.9% intravenous solution 1000.00 mL IV Right Antecubit Hooper ondansetron 4.00 mg IV Push Right Antecubit Hooper acetaminophen 1000.00 mg IV Piggyback Right Antecubit Hooper diphenhydrAMINE 25.00 mg IV Push Right Antecubit Alex promethazine 25.00 mg Rectal Medication Information: Medications to Continue Taking That Have Changed [facility]/pharmacy #[id number], [address], [place] [id number], [phone] START: ondansetron (Zofran ODT 4 mg Tab-Dis) 1 Tablets By Mouth every 8 hours as needed Nausea/Vomiting. Refills: 0. START: promethazine (Phenergan 25 mg Supp) 1 Suppositories By rectum every 6 hours as needed Nausea/Vomiting. Refills: 0. Other Medications START: ondansetron (Zofran ODT 4 mg Tab-Dis) 1 Tablets By Mouth every 8 hours as needed Nausea/Vomiting. Refills: 0. START: promethazine (Phenergan 12.5 mg [...] needed for nausea/vomiting. second line. Refills: 0. START: promethazine (promethazine 12.5 mg oral tablet) 1 Tablets By Mouth every 6 hours as needed for nausea/vomiting. Refills: 0. Medications to Continue with No Changes Other Medications naproxen (Naprosyn 500 mg Tab) 1 Tablets By Mouth 2 times a day as needed for pain. Refills: 0. naproxen (naproxen 500 mg Tab) 1 Tablets By Mouth 2 times a day as needed Pain. with food. Refills: 0. Comment: Patient Portal You may access all of your results and other medical record information on our secure patient portal. If you are not signed up for this yet, please contact [employer] at [phone] to get signed up today. RAFAEL Award Nomination The RAFAEL (Diseases Attacking the Immune SYstem) Award is an international recognition program that honors and celebrates the skillful, compassionate care nurses provide every day. Anyone who experiences or observes amazing care being provided by a nurse is encouraged to submit a nomination. To nominate your nurse, use your smart phone to scan the QR code below. Language Information Language assistance services are available as needed. You may receive a survey from [employer] asking you to rate your care experience. Your feedback is important and will help us understand what we do well and how we can improve the quality of care we provide to you, your loved ones and our community. It???s an honor to serve you. Thank you for choosing [facility] Patient Education Materials: Hyperemesis Gravidarum Hyperemesis gravidarum is a severe form of nausea and vomiting that happens during . Hyperemesis is worse than morning sickness. It may cause you to have nausea or vomiting all day for many days. It may keep you from eating and drinking enough food and liquids, which can lead to dehydration, malnutrition, and weight loss. Hyperemesis usually occurs during the first half (the first 20 weeks) of . It often goes away once a woman is in her second half of . However, sometimes hyperemesis continues through an entire . What are the causes? The cause of this condition is not known. It may be associated with: ??? Changes in hormones in the body during . ??? Changes in the gastrointestinal system. ??? Genetic or inherited conditions. What are the signs or symptoms? Symptoms of this condition include: ??? Severe nausea and vomiting that does not go away. ??? Problems keeping food down. ??? Weight loss. ??? Loss of body fluid (dehydration). ??? Loss of appetite. You may have no desire to eat or you may not like the food you have previously enjoyed. How is this diagnosed? This condition may be diagnosed based on your medical history, your symptoms, and a physical exam. You may also have other tests, including: ??? Blood tests. ??? Urine tests. ??? Blood pressure tests. ??? Ultrasound to look for problems with the placenta or to check if you are with more than one baby. How is this treated? This condition is managed by controlling symptoms. This may include: ??? Following an eating plan. This can help to lessen nausea and vomiting. ??? Treatments that do not use medicine. These include acupressure bracelets, hypnosis, and eating or drinking foods or fluids that contain natalie, natalie trista, or natalie tea. ??? Taking prescription medicine or obty-jff-herflzd medicine as told by your health care provider. ??? Continuing to take vitamins. You may need to change what kind you take and when you take them. Follow your health care provider's instructions about vitamins. An eating plan and medicines are often used together to help control symptoms. If medicines do not help relieve nausea and vomiting, you may need to receive fluids through an IV at the hospital. Follow these instructions at home: To help relieve your symptoms, listen to your body. Everyone is different and has different preferences. Find what works best for you. Here are some things you can try to help relieve your symptoms: Meals and snacks ??? Eat 5?6 small meals daily instead of 3 large meals. Eating small meals and snacks can help you avoid an empty stomach. ??? Before getting out of bed, eat a couple of crackers to avoid moving around on an empty stomach. ??? Eat a protein-rich snack before bed. Examples include cheese and crackers, or a peanut butter sandwich made with 1 slice of whole-wheat bread and 1 tsp (5 g) of peanut butter. ??? Eat and drink slowly. ??? Try eating starchy foods as these are usually tolerated well. Examples include cereal, toast, bread, potatoes, pasta, rice, and pretzels. ??? Eat at least one serving of protein with your meals and snacks. Protein options include lean meats, poultry, seafood, beans, nuts, nut butters, eggs, cheese, and yogurt. ??? Eat or suck on things that have natalie in them. It may help to relieve nausea. Add ? tsp (0.44 g) ground natalie to hot tea, or choose natalie tea. Fluids It is important to stay hydrated. Try to: ??? Drink small amounts of fluids often. ??? Drink fluids 30 minutes before or after a meal to help lessen the feeling of a full stomach. ??? Drink 100% fruit juice or an electrolyte drink. An electrolyte drink contains sodium, potassium, and chloride. ??? Drink fluids that are cold, clear, and carbonated or sour. These include lemonade, natalie trista, lemon?resighini soda, ice water, and sparkling water. Things to avoid Avoid the following: ??? Eating foods that trigger your symptoms. These may include spicy foods, coffee, high-fat foods, very sweet foods, and acidic foods. ??? Drinking more than 1 cup of fluid at a time. ??? Skipping meals. Nausea can be more intense on an empty stomach. If you cannot tolerate food, do not force it. Try sucking on ice chips or other frozen items and make up for missed calories later. ??? Lying down within 2 hours after eating. ??? Being exposed to environmental triggers. These may include food smells, smoky rooms, closed spaces, rooms with strong smells, warm or humid places, overly loud and noisy rooms, and rooms with motion or flickering lights. Try eating meals in a well-ventilated area that is free of strong smells. ??? Making quick and sudden changes in your movement. ??? Taking iron pills and multivitamins that contain iron. If you take prescription iron pills, do not stop taking them unless your health care provider approves. ??? Preparing food. The smell of food can spoil your appetite or trigger nausea. General instructions ??? Salt Lick your teeth or use a mouth rinse after meals. ??? Take nnds-kga-kdmvtlh and prescription medicines only as told by your health care provider. ??? Follow instructions from your health care provider about eating or drinking restrictions. ??? Talk with your health care provider about starting a supplement of vitamin B6. ??? Continue to take your vitamins as told by your health care provider. If you are having trouble taking your vitamins, talk with your health care provider about other options. ??? Keep all follow-up visits. This is important. Follow-up visits include visits. Contact a health care provider if: ??? You have pain in your abdomen. ??? You have a severe headache. ??? You have vision problems. ??? You are losing weight. ??? You feel weak or dizzy. ??? You cannot eat or drink without vomiting, especially if this goes on for a full day. Get help right away if: ??? You cannot drink fluids without vomiting. ??? You vomit blood. ??? You have constant nausea and vomiting. ??? You are very weak. ??? You faint. ??? You have a fever and your symptoms suddenly get worse. Summary ??? Hyperemesis gravidarum is a severe form of nausea and vomiting that happens during . ??? Making some changes to your eating habits may help relieve nausea and vomiting. ??? This condition may be managed with lifestyle changes and medicines as prescribed by your health care provider. ??? If medicines do not help relieve nausea and vomiting, you may need to receive fluids through an IV at the hospital. This information is not intended to replace advice given to you by your health care provider. Make sure you discuss any questions you have with your health care provider. Document Revised: 06/08/2021 Document Reviewed: 06/08/2021 [employer] Patient Education ? 2023 [employer] Nausea and Vomiting, Adult Nausea is [...] care provider about them. Eating and drinking ??? Take an oral rehydration solution (ORS). This is a drink that is sold at pharmacies and retail stores. ??? Drink clear fluids slowly and in small amounts as you are able. Clear fluids include water, ice chips, low-calorie sports drinks, and fruit juice that has water added (diluted fruit juice). ??? Eat bland, qvuk-oc-hdtqhj foods in small amounts as you are able. These foods include bananas, applesauce, rice, lean meats, toast, and crackers. ??? Avoid fluids that contain a lot of sugar or caffeine, such as energy drinks, sports drinks, and soda. ??? Avoid alcohol. ??? Avoid spicy or fatty foods. General instructions ??? Take admd-ymw-elstdzu and prescription medicines only as told by your health care provider. ??? Drink enough fluid to keep your urine pale yellow. ??? Wash your hands often using soap and water for at least 20 seconds. If soap and water are not available, use hand pullman conductor. ??? Make sure that everyone in your household washes their hands well and often. ??? Rest at home while you recover. ??? Watch your condition for any changes. ??? Take slow and deep breaths when you feel nauseous. ??? Keep all follow-up visits. This is important. Contact a health care provider if: ??? Your symptoms get worse. ??? You have new symptoms. ??? You have a fever. ??? You cannot drink fluids without vomiting. ??? Your nausea does not go away after 2 days. ??? You feel light-headed or dizzy. ??? You have a headache. ??? You have muscle cramps. ??? You have a rash. ??? You have pain while urinating. Get help right away if: ??? You have pain in your chest, neck, arm, or jaw. ??? You feel extremely weak or you faint. ??? You have persistent vomiting. ??? You have vomit that is bright red or looks like black coffee grounds. ??? You have bloody or black stools (feces) or stools that look like tar. ??? You have a severe headache, a stiff neck, or both. ??? You have severe pain, cramping, or bloating in your abdomen. ??? You have difficulty breathing, or you are breathing very quickly. ??? Your heart is beating very quickly. ??? Your skin feels cold and clammy. ??? You feel confused. ??? You have signs of dehydration, such as: ? Dark urine, very little urine, or no urine. ? Cracked lips. ? Dry mouth. ? Sunken eyes. ? Sleepiness. ? Weakness. These symptoms may be an emergency. Get help right away. Call 911. ??? Do not wait to see if the symptoms will go away. ??? Do not drive yourself to the hospital. Summary ??? Nausea is the feeling that you have an upset stomach or that you are about to vomit. As nausea gets worse, it can lead to vomiting. Vomiting can make you feel weak and cause you to become dehydrated. ??? Follow instructions from your health care provider about eating and drinking to prevent dehydration. ??? Take wyfd-ior-mljzqng and prescription medicines only as told by your health care provider. ??? Contact your health care provider if your symptoms get worse, or you have new symptoms. ??? Keep all follow-up visits. This is important. This information is not intended to replace advice given to you by your health care provider. Make sure you discuss any questions you have with your health care provider. Document Revised: 05/21/2022 Document Reviewed: 05/21/2022 [employer] Patient Education ? 2023 [employer] COLTON Gutierrez [employer] , have received the following patient education materials/instructions and have verbalized understanding: Patient Education Materials: Hyperemesis Gravidarum; Nausea and Vomiting, Adult Follow-up Instructions: With: Address: When: [facility] [phone] In 3 days 08/25/2025 Comments: Follow-up with Kelsey your PHYSICAL SECURITY SPECIALIST at [facility][1]. Use nausea medications as prescribed. Eat multiple small meals a day. Increase your fluid intake. With: Address: When: OLEG CALVIN [address] [place] [address] [phone] [facility] (1) In 3 days 08/25/2025 Comments: Call the office of your primary care doctor to arrange for follow-up within the above-stated timeframe. Follow-up with your primary care doctor about this ED visit. You should review your labs, imaging, and diagnoses from this ED visit with your primary care physician. There are occasionally non-emergent findings that require additional follow-up after your ED visit. If you were prescribed medications you should discuss possible side-effects and drug interactions with your pharmacist. Call 911 or go to the nearest Emergency Department if you develop any new or worsening symptoms. Patient Signature Date Clinician/Nurse Signature Date 08/22/2025 21:56:32 ED CLINICAL SUMMARY Observed: 08/22/2025 9:56 PM Status: C Source: [facility] ED Clinical Summary [place] [id number] ED Clinical Summary Person Information Name: CORAL SEGURA/[facility] Age: 20 Years : 2005 Sex: Female Language: Mexican PCP: OLEG CALVIN CNP Marital Status: Single Visit Id: Visit Reason: Vomiting - ; Nausea; Abdominal pain; vomiting Speciality: Acuity: 3 Enc Type: Emergency Med Service: Emergency Arrival: 08/22/2025 17:04:27 Discharge: 08/22/2025 21:56:23 LOS: 000 04:52 Checkin: 08/22/2025 17:04:27 Checkout: 08/22/2025 21:56:23 Dispo Type: Home (Routine DC) EVENTS: Event Name Event Status Request Date/Time Start Date/Time Complete Date/Time Arrive Complete 08/22/2025 17:04:27 08/22/2025 17:04:27 08/22/2025 17:04:27 Document Home Meds Request 08/22/2025 17:04:27 Triage Complete 08/22/2025 17:04:27 08/22/2025 17:08:17 08/22/2025 17:08:17 Registration Complete 08/22/2025 17:06:08 08/22/2025 17:06:08 08/22/2025 17:06:08 Reg Complete Request 08/22/2025 17:06:08 Reg Bed Request Complete 08/22/2025 17:06:08 08/22/2025 17:06:08 08/22/2025 17:06:08 Bed Assign Complete 08/22/2025 17:24:51 08/22/2025 17:24:51 08/22/2025 17:24:51 Dr Exam Complete 08/22/2025 17:24:51 08/22/2025 17:43:04 08/22/2025 17:43:04 RN Exam Complete 08/22/2025 17:24:51 08/22/2025 18:11:04 08/22/2025 18:11:04 Registration Complete 08/22/2025 17:43:04 08/22/2025 19:57:14 08/22/2025 19:57:14 Dr Exam Complete 08/22/2025 17:49:14 08/22/2025 17:49:14 08/22/2025 17:49:14 Meds Admin Complete 08/22/2025 17:59:00 08/22/2025 18:37:32 Pending Labs Complete 08/22/2025 17:59:00 08/22/2025 19:48:19 Lab Complete 08/22/2025 17:59:00 08/22/2025 19:31:50 US Complete 08/22/2025 17:59:00 08/22/2025 20:15:18 08/22/2025 21:20:11 Meds Admin Complete 08/22/2025 17:59:26 08/22/2025 18:37:32 Pending Labs Cancel 08/22/2025 18:40:55 08/22/2025 18:40:55 08/22/2025 18:56:24 Lab Cancel 08/22/2025 18:40:55 08/22/2025 18:40:55 08/22/2025 18:56:24 Pending Labs Complete 08/22/2025 18:56:29 08/22/2025 18:56:29 08/22/2025 19:10:44 Lab Complete 08/22/2025 18:56:29 08/22/2025 18:56:29 08/22/2025 19:10:44 Pending Labs Complete 08/22/2025 18:56:29 08/22/2025 18:56:29 08/22/2025 19:10:44 Lab Complete 08/22/2025 18:56:29 08/22/2025 18:56:29 08/22/2025 19:10:44 Pending Labs Complete 08/22/2025 19:26:46 08/22/2025 19:26:46 08/22/2025 19:26:47 Dr Exam Complete 08/22/2025 19:46:25 08/22/2025 19:46:25 08/22/2025 19:46:25 Pending Labs Complete 08/22/2025 19:50:49 08/22/2025 19:50:49 08/22/2025 20:02:54 Meds Admin Complete 08/22/2025 20:02:31 08/22/2025 20:07:57 Pending Labs Inlab 08/22/2025 20:02:54 08/22/2025 20:02:54 Lab Inlab 08/22/2025 20:02:54 08/22/2025 20:02:54 Patient Care Request 08/22/2025 20:46:26 Pending Labs Complete 08/22/2025 20:46:26 08/22/2025 20:51:25 Pending Labs Complete 08/22/2025 20:51:25 08/22/2025 20:51:25 08/22/2025 20:58:08 Discharge Complete 08/22/2025 21:44:30 08/22/2025 21:56:29 08/22/2025 21:56:29 Transfer Complete 08/22/2025 21:56:29 08/22/2025 21:56:29 08/22/2025 21:56:29 ADDRESS: [address] [facility] [id number] PHYS DOC NOTES: MEDICAL INFORMATION: Prescriptions Given: Medications to Continue Taking That Have Changed [facility]/pharmacy #[id number], [address], [place] [phone], [phone] START: ondansetron (Zofran ODT 4 mg Tab-Dis) 1 Tablets By Mouth every 8 hours as needed Nausea/Vomiting. Refills: 0. START: promethazine (Phenergan 25 mg Supp) 1 Suppositories By rectum every 6 hours as needed Nausea/Vomiting. Refills: 0. Other Medications START: ondansetron (Zofran ODT 4 mg Tab-Dis) 1 Tablets By Mouth every 8 hours as needed Nausea/Vomiting. Refills: 0. START: promethazine (Phenergan 12.5 mg [...] needed for nausea/vomiting. second line. Refills: 0. START: promethazine (promethazine 12.5 mg oral tablet) 1 Tablets By Mouth every 6 hours as needed for nausea/vomiting. Refills: 0. Medications to Continue with No Changes Other Medications naproxen (Naprosyn 500 mg Tab) 1 Tablets By Mouth 2 times a day as needed for pain. Refills: 0. naproxen (naproxen 500 mg Tab) 1 Tablets By Mouth 2 times a day as needed Pain. with food. Refills: 0. PATIENT EDUCATION INFORMATION: Instructions: Hyperemesis Gravidarum; Nausea and Vomiting, Adult Follow up: With: Address: When: [facility] [phone] In 3 days 08/25/2025 Comments: Follow-up with Kelsey cuadra PHYSICAL SECURITY SPECIALIST at [facility][1]. Use nausea medications as prescribed. Eat multiple small meals a day. Increase your fluid intake. With: Address: When: OLEG CALVIN [facility] [place] [address] [place] [address] [phone] Business (1) In 3 days 08/25/2025 Comments: Call the office of your primary care doctor to arrange for follow-up within the above-stated timeframe. Follow-up with your primary care doctor about this ED visit. You should review your labs, imaging, and diagnoses from this ED visit with your primary care physician. There are occasionally non-emergent findings that require additional follow-up after your ED visit. If you were prescribed medications you should discuss possible side-effects and drug interactions with your pharmacist. Call 911 or go to the nearest Emergency Department if you develop any new or worsening symptoms. DIAGNOSIS: 1:Abdominal pain; 2:Nausea & vomiting; 3:; Hyperemesis gravidarum; Left against medical advice ED NOTE-NURSING Observed: 08/22/2025 9:56 PM Status: F Source: [facility] ED Note-Nursing pt requesting to leave ama. pt states she does not want to keep waiting and just wants to go home. pt made aware of risks of leaving by millicent sanchez and Dr. preciado. pt still requesting to leave ama. pt informed of when to come back and pt verbalized understanding. ama form signed prior to pt leaving. US 1ST TRIMESTER Observed: 8:15 PM Status: F Source: [facility] Exam Date/Time: 08/22/2025 21:20 EDT Reason for Exam: Threatened Miscarriage;Other (please specify) Report IMPRESSION: No intrauterine gestational sac visualized via transabdominal imaging at this time. Adnexal regions grossly unremarkable. Patient refused transvaginal imaging. Recommend continued trending of beta hCG, and repeat ultrasound as clinically indicated. CLINICAL HISTORY: Threatened Miscarriage. Abdominal pain. Nausea and vomiting. Denies vaginal bleeding. Uncertain LMP. Beta hCG of 4144. COMPARISON: None for this gestation available. COMMENT: Transabdominal images were obtained. Patient refused transvaginal imaging. The uterus measurements and an estimated volume are: Uterus Length: 9.2 cm Uterus Width: 4.8 cm Uterus Height: 3.3 cm Uterus Volume: 76.0 cm3 The uterus is otherwise unremarkable. Endometrial echo complex measures 1.1 cm. No gestational sac visualized via transabdominal imaging at this time. Patient refused transvaginal imaging. The right ovary measurements and estimated volume are: Right Ovary Length: 1.7 cm Right Ovary Width: 1.7 cm Right Ovary Height: 2.0 cm Right Ovary Volume: 2.9 cm3 The left ovary measurements and estimated volume are: Left Ovary Length: 2.6 cm Left Ovary Width: 2.0 cm Left Ovary Height: 1.9 cm Left Ovary Volume: 5.3 cm3 No large cysts and no adnexal mass. There is no free fluid in the cul-de-sac. Tech Comments: LMP : in June 2 SAB 1 Report - Transabdominal Ultrasound Performed Ordering Provider: Sunday Johnson FINAL REPORT Dictated: 08/23/2025 9:16 am Mahamed Quispe MD Signed (Electronic Signature): 08/23/2025 9:16 am Signed by: Mahamed Quispe MD Transcribed by: KIRA Technologist: PRAVIN Abdi URINE Observed: 08/22/2025 7:48 PM Status: F Source: [facility] Microbiology PROCEDURE: Urine Culture [R1] SOURCE: U CleanCatch BODY SITE: COLLECTED DATE/TIME: 08/22/2025 19:48 EDT RECEIVED DATE/TIME: 08/22/2025 20:18 EDT START DATE/TIME: 08/22/2025 20:18 EDT FREE TEXT SOURCE: Elizabeth LOVE, Sunday Abdi. Elizabeth LOVE, Sunday Abdi. FINAL REPORTS Final Report [] Verified Date/Time: 08/24/2025 10:07 EDT 3,000 cfu/ml Mixed skin contaminants Performing Locations R1: This test was performed at: [facility], [address] [place] [address], [facility] , , Performed By: #### [id number] # ### [facility] [address] [place] [address] UA WITH CULT RFLX Collected: 7:48 PM Status: F Source: [facility] Order Comment: Added by Disc gregg Expert TYPE CODE TESTS RESULT OUT OF RANGE REFERENCE UNITS LAB [id number](LOIN C) UA Color Yellow Normal Yellow Result Comment: Microscopic readings are only performed on those samples that meet specific criteria set forth by [facility]. LAB [id number](LOIN C) UA Clarity Turbid Abnormal Clear LAB [id number](LOIN C) UA Spec Grav 1.038 Unknown 1.005-1.030 LAB [id number](LOIN C) UA pH 6.5 Unknown 5.0-9.0 LAB [id number](LOIN C) UA Protein 1+ Abnormal Negative mg/dL LAB [id number](LOIN C) UA Glucose Negative Normal Negative mg/dL LAB 81183266(IN C) UA Ketones 3+ Abnormal Negative mg/dL LAB 03577597(IN C) UA Bili Negative Normal Negative mg/dL LAB [id number](LOIN C) UA Blood Negative Normal Negative mg/dL LAB 80720859(LOIN C) UA Nitrite Negative Normal Negative mg/dL LAB 53010833(LOIN C) UA Urobilinogen Negative Normal Negative mg/dL LAB [id number](LOIN C) UA Leuk Est 75 Lesli/uL Abnormal Negative CD:76168 71079 LAB [id number](LOIN C) UA WBC 6-15 Abnormal 0-5 CD:58660 26034 LAB 05668708(LOIN C) UA RBC 4-20 Abnormal 0-3 CD:56011 75290 LAB 76281574(LOIN C) UA Squam Epithelial >10 Unknown CD:25242 97596 LAB 97561421(LOIN C) UA Bacteria Trace Normal Trace /HPF LAB [id number](LOIN C) UA Mucous Trace Normal Negative CD:84357 87409 LAB [id number](LOIN C) UA Hyal Cast 0-3 Normal 0-3 CD:23968 46884 Performed By: #### [id number] #### [facility] [address] [place] [address] UA WITH CULT RFLX SP Collected: 08/22/2025 7:48 PM S tatus: F Source: [facility] TYPE CODE TESTS RESULT OUT OF RANGE REFERENCE UNITS LAB [id number]([facility]) UA Spec Desc Clean Catch Normal Performed By: #### [id number] #### [facility] [address] [place] [address] BHCG QUANT Collected: 08/22/2025 6:33 PM Status: F Source: [facility] TYPE CODE TESTS RESULT OUT OF RANGE REFERENCE UNITS LAB [id number](LOINC) Beta hCG Qnt 4144 High 1-3 mIU /mL Result Comment: 'F NONPREGNA NT < 1 - 3' ' 0.2 - 1 WEEK = 5 TO 50' ' 1 - 2 WEEKS = 50 - 500' ' 2 - 3 WEEKS = 100 - 5000' ' 3 - 4 WEEKS = 500 - 18446' ' 4 - 5 WEEKS = 1000 - 91350' ' 5 - 6 WEEKS = 45244 - 536410' ' 6 - 8 WEEKS = 56952 - 573006' ' 8 - 12 WEEKS = 65096 - 987247' Performed By: #### [id number] # ### [facility] [address] [place] [address] CBC W/ AUTO DIFF Collected: 6:33 PM Status: F Source: [facility] TYPE CODE TESTS RESULT OUT OF RANGE REFERENCE UNITS LAB [id number](LOINC) WBC 16.5 High 4.0-11.0 E9/L LAB [id number](LOINC) RBC 5.2 Normal 4.3-5.9 E12/L LAB 90480878(LOINC) HGB 15.6 Normal 12.0-16.0 gm/dL LAB 19758900(LOINC) Hct 44.8 Normal 34.0-46.0 % LAB 32067887(LOINC) RDW 14.0 Normal 10.9-14.2 % LAB [id number](LOINC) MCH 30.1 Normal 27.0-34.0 pg LAB 86063104(LOINC) MCHC 34.8 Normal 31.4-36.0 gm/dL LAB [id number](LOINC) MCV 86.4 Normal 80.0-100.0 fL LAB [id number](LOINC) MPV 8.0 Normal 6.4-10.8 fL LAB [id number](LOINC) Platelet 334.0 Normal 150.0-500.0 E9/ L LAB [id number](LOINC) Neutro Auto 85.5 High 36.0-75.0 % LAB 95280367(LOINC) Lymph Auto 8.2 Low 14.0-50.0 % LAB 64865079(LOINC) [place] Auto 5.4 Normal 4.0-14.0 % LAB 88558785(LOINC) Eos Auto 0.1 Normal 0.0-8.0 % LAB 36914593(LOINC) Basophil Auto 0.8 Normal 0.0-2.0 % LAB [id number](LOINC) Neutro Absolute 14.1 High 2.0-7.5 E9/L LAB 84495209(LOINC) Lymph Absolute 1.4 Normal 1.0-4.0 E9/L LAB 86607621(LOINC) [place] Absolute 0.9 Normal 0.2-1.0 E9 /L LAB [id number](LOINC) Eos Absolute 0.0 Normal 0.0-0.5 E9/ L LAB 89814302(LOINC) Basophil Absolute 0.1 Normal 0.0-0.2 E9/L Performed By: #### [id number] # ### [facility] [address] [place] [address] HEP FUNC PANEL Collected: 5 6:33 PM Status: F Source: [facility] TYPE CODE TESTS RESULT OUT OF RANGE REFERENCE UNITS LAB [id number]([facility]) ALT 25 Normal 6-46 Int._Uni t /L LAB 06163939(LOINC) AST 21 Normal 5-43 Int._Uni t /L LAB 92782763(INC) Albumin Lvl 5.2 High 3.3-5.0 gm/d L LAB 30548601(LOINC) Globulin 3.8 Normal 1.4-4.0 gm/dL LAB [id number](LOINC) A/G Ratio 1.4 Normal 1.1-2.2 LAB 06046148(INC) Alk Phos 71 Normal 21-98 Int._Un it /L LAB 73623649(LOINC) Bili Direct 0.2 Normal 0.0-0.4 mg/d L LAB 66550921(LOINC) Bili Indirect 0.5 Normal 0.1-0.9 mg /dL LAB 70491375(LOINC) Bili Total 0.7 Normal 0.0-1.1 mg/dL LAB [id number](LOINC) Total Protein 9.0 High 6.0-7.8 gm /dL Performed By: #### [id number] # ### [facility] [address] [place] [address] LIPASE LEVEL Collected: 6:33 PM Status: F Source: [facility] TYPE CODE TESTS RESULT OUT OF RANGE REFERENCE UNITS LAB 13945110([facility]) Lipase Lvl 21 Normal 13-58 unit/ L Performed By: #### [id number] # ### [facility] [address] [place] [id number] EGFR Collected: 6:33 PM Status: F Source: [facility] TYPE CODE TESTS RESULT OUT OF RANGE REFERENCE UNITS LAB [id number]([facility]) eGFR 93 Normal >=59 mL/min/1 .7 3 m2 Performed By: #### [id number] #### [facility] [address] [place] [address] BMP Collected: 08/22/2025 6:33 PM Status: F Source: [facility] TYPE CODE TESTS RESULT OUT OF RANGE REFERENCE UNITS LAB 48321272([facility]) Glucose Lvl 106 Normal 55-199 mg/d L LAB 90801395(INC) BUN 27 High 5-21 mg/dL LAB 5456352([facility]) Creatinine 0.9 Normal 0.5-1.3 mg/dL LAB 97073587([facility]) BUN/Creat Ratio 30 High 10-20 No Units LAB 93982360([facility]) Calcium Lvl 10.3 Normal 8.9-11.1 mg/ dL LAB 54833325(INC) Sodium Lvl 135 Normal 135-145 mmol/ L LAB 84089207(INC) Potassium Lvl 3.3 Low 3.5-5.3 mm ol/L LAB 27525934(INC) Chloride 97 Low 101-111 mmol/L LAB 19154862(INC) CO2 27 Normal 21-31 mmol/L LAB 73249167([facility]) AGAP 14 Normal 6-16 mEq/L Performed By: #### [id number] # ### [facility] [address] [place] [id number] ED NOTE-PHYSICIAN Observed: 08/22/2025 5:04 PM Status: F Source: [facility] ED Note-Physician Basic Information Time Seen: Sunday Johnson PA-C 08/22/2025 17:43 Chief Complaint pt reports abd pain, n/v for the past 3-4 days. denies any urinary symptoms. denies any medications at home for symptoms. pt states . unknown how far along. lms 06/28. denies vaginal bleeding. History of Present Illness Patient is a 20-year-old female that presents today for evaluation of her lower abdominal pain with nausea and vomiting. Patient states that symptoms have been ongoing for the last 3 to 4 days. She states that she has had 2 positive test at home. Last known menstrual cycle was 06/28/2025. Denies any vaginal bleeding or discharge. She does state that she has a history of POTS as well as previous cannabinoid hyperemesis syndrome from marijuana use. Currently not smoking marijuana. Denies any chest pain or shortness of breath. Denies any dysuria, frequency, urgency. Review of Systems No other aggravating or relieving factors no other associated symptoms no other prior treatments or complaints. Family: Reviewed and noncontributory Social: lives at home Review of systems negative unless otherwise specified in the HPI. Physical Exam Vitals & Measurements T: 36.9 ???C(Oral) HR: 79(Peripheral) RR: 18 BP: 151/109 SpO2: 94% HT: 157 cm WT: 95 kg BMI: 38.54 General: The patient appears well and in no apparent distress. Patient is resting comfortably on cart. Skin: Warm, dry, no pallor noted. Head: Normocephalic, atraumatic Neck: No JVD Eye: PERRLA, EOMI ENT: Moist mucus membranes Cardiovascular: Regular rate and rhythm. Normal peripheral perfusion Respiratory: CTA bilaterally. No respiratory distress no accessory muscle use no obvious audible wheezing Chest Wall: no deformity Musculoskeletal: normal ROM, no deformity, no swelling GI: Soft no obvious distention. No rebound or rigidity. No guarding. Diffuse lower abdominal tenderness. Neurological: A&O moves all extremities equal strength and symmetry Psychiatric: Cooperative and appropriate Medical Decision Making Patient is a 20-year-old female who presents today for evaluation of her lower abdominal pain with nausea and vomiting. Symptoms have been ongoing for the last 3 to 4 days. Had 2 positive test at home. Last menstrual cycle was 06/28/2025. Does have a history of POTS as well as cannabinoid hyperemesis syndrome. On exam patient is afebrile and nontoxic-appearing. She is not tachycardic or hypotensive. Diffuse lower abdominal tenderness. Manger of the abdomen soft nontender with no evidence of guarding or distention. Patient is given a dose of IV acetaminophen, Zofran, liter of fluids and workup is obtained. Labs demonstrate leukocytosis at 16.5 with left shift. Mild hypokalemia at 3.3. Patient is signed out to Dr. Preciado for final dispo pending remaining laboratory findings and pelvic ultrasound results. Signout note: Patient wanted to leave without results of ultrasound. Discussed with her that we cannot rule out ectopic or other life-threatening causes without results. Her lab work was reviewed and noted. She does meet criteria for hyperemesis gravidarum. She does not wish for any further treatment reports she feels improved. However on the urinalysis performed for her ultrasound her ketones did not clear. She does not have any nausea medications at home. A prescription for Zofran and ODT as well as Phenergan MA were prescribed. The patient still wanted to leave AGAINST MEDICAL ADVICE. Discussed with her that she may return at any time to continue her care. She will follow-up with her PHYSICAL SECURITY SPECIALIST at [facility][1]. Return precautions were discussed. All questions were answered. The patient was discharged home. Pradeep Preciado DO, FAAEM Assessment/Plan 1. Abdominal pain (R10.9: Unspecified abdominal pain) 2. Nausea & vomiting (R11.2: Nausea with vomiting, unspecified) 3. (Z34.90: Encounter for supervision of normal , unspecified, unspecified trimester) Hyperemesis gravidarum (O21.0: Mild hyperemesis gravidarum) Left against medical advice (Z53.29: Procedure and treatment not carried out because of patient's decision for other reasons) Orders: diphenhydrAMINE, 25 mg = 0.5 mL, Injection, IV Push, Once, Stop date 08/22/25 19:59:00 EDT, STAT, Start date 08/22/25 19:59:00 EDT, 08/22/25 19:59:00 EDT ondansetron, 4 mg = 1 tab(s), Oral, q8hr, PRN Nausea/Vomiting, # 30 tab(s), Refills(s) 0, [id number], 157, cm, 08/22/25 17:08:00 EDT, Height/Length Dosing, 95, kg, 08/22/25 17:08:00 EDT, Weight Dosing promethazine, 25 mg = 1 supp, Rectal, q6hr, PRN Nausea/Vomiting, # 16 EA, Refills(s) 0, [id number], 157, cm, 08/22/25 17:08:00 EDT, Height/Length Dosing, 95, kg, 08/22/25 17:08:00 EDT, Weight Dosing promethazine, 25 mg = 1 supp, Supp, Rectal, Once, Stop date 08/22/25 20:02:00 EDT, STAT, Start date 08/22/25 20:02:00 EDT, 08/22/25 20:02:00 EDT Urinary Catheter Insertion Medications Administered Given [id number] [F] 1000 mg + GenDil 100 mL, IV Piggyback NS 1000 ml Bolus, 1000 mL, IV ondansetron 4 mg/2 mL Inj, 4 mg, IV Push Disposition Plan Patient Discharge Condition Stable Discharge Disposition LEFT AMA Discharge Prescription List Prescriptions Phenergan 25 mg Supp, 25 mg= 1 supp, Rectal, q6hr, PRN Zofran ODT 4 mg Tab-Dis, 4 mg= 1 tab(s), Oral, q8hr, PRN Follow-up With When Contact Information [facility] [phone] In 3 days 08/25/2025 EDT Additional Instructions: Follow-up with Kelsey cuadra PHYSICAL SECURITY SPECIALIST at [facility][1]. Use nausea medications as prescribed. Eat multiple small meals a day. Increase your fluid intake. OLEG CALVIN In 3 days 08/25/2025 EDT [address] [place] [address]- [phone] Business (1) Additional Instructions: Call the office of your primary care doctor to arrange for follow-up within the above-stated timeframe. Follow-up with your primary care doctor about this ED visit. You should review your labs, imaging, and diagnoses from this ED visit with your primary care physician. There are occasionally non-emergent findings that require additional follow-up after your ED visit. If you were prescribed medications you should discuss possible side-effects and drug interactions with your pharmacist. Call 911 or go to the nearest Emergency Department if you develop any new or worsening symptoms. Patient Education Hyperemesis Gravidarum Nausea and Vomiting, Adult Attestation Patient seen and evaluated by the physician administrative support assistant. Attending physician was present in the emergency department and supervised care. This visit was performed by both the physician and an APC. I performed all aspects of the MDM as documented. This report was transcribed using voice recognition software. Every effort was made to ensure accuracy, however, inadvertently computerized lead supply worker mistakes may be present. Appropriate healthcare PPE was used in evaluating this patient. The healthcare provider was wearing gloves, and utilizing proper hand hygiene. All equipment was properly cleansed. I performed a substantive part of the MDM during the patient???s E/M visit. I personally made or approved the documented management plan and acknowledge its risk of complications. (Independent Interpretation) My (EKG/X-Ray/US/CT as applicable) interpretation as above. (Discussion) Management/test interpretation discussed with APC. Problem List/Past Medical History Ongoing Smoker Historical PoTS - postural tachycardia syndrome Medications Inpatient No active inpatient medications Home Naprosyn 500 mg Tab, 500 mg= 1 tab(s), Oral, BID, PRN naproxen 500 mg Tab, 500 mg= 1 tab(s), Oral, BID, PRN Phenergan 12.5 mg Supp, 12.5 mg= 1 supp, Rectal, q8hr, PRN Phenergan 25 mg Supp, 25 mg= 1 supp, Rectal, q6hr, PRN promethazine 12.5 mg oral tablet, 12.5 mg= 1 tab(s), Oral, q8hr, PRN promethazine 12.5 mg oral tablet, 12.5 mg= 1 tab(s), Oral, q6hr, PRN Zofran ODT 4 mg Tab-Dis, 4 mg= 1 tab(s), Oral, q8hr, PRN Allergies Haldol (facial droop) Reglan (Unknown) Social History Alcohol Current, 1-2 times per month, 08/22/2025 Substance Abuse Current, Marijuana, Daily, 08/22/2025 Tobacco Current vaping or e-cigarette use Smokeless Tobacco Use:. Vaping, 08/22/2025 Never (less than 100 in lifetime) Tobacco Use:. Never Smokeless Tobacco Use:., 03/13/2024 Lab Results WBC: 16.5 E9/L High (08/22/25 18:33:00) RBC: 5.2 E12/L (08/22/25 18:33:00) HGB: 15.6 gm/dL (08/22/25 18:33:00) Hct: 44.8 % (08/22/25 18:33:00) MCV: 86.4 fL (08/22/25 18:33:00) MCH: 30.1 pg (08/22/25 18:33:00) MCHC: 34.8 gm/dL (08/22/25 18:33:00) RDW: 14 % (08/22/25 18:33:00) Platelet: 334 E9/L (08/22/25 18:33:00) MPV: 8 fL (08/22/25 18:33:00) Neutro Auto: 85.5 % High (08/22/25 18:33:00) Lymph Auto: 8.2 % Low (08/22/25 18:33:00) Bamberg Auto: 5.4 % (08/22/25 18:33:00) Eos Auto: 0.1 % (08/22/25 18:33:00) Basophil Auto: 0.8 % (08/22/25 18:33:00) Neutro Absolute: 14.1 E9/L High (08/22/25 18:33:00) Lymph Absolute: 1.4 E9/L (08/22/25 18:33:00) Bamberg Absolute: 0.9 E9/L (08/22/25 18:33:00) Eos Absolute: 0 E9/L (08/22/25 18:33:00) Basophil Absolute: 0.1 E9/L (08/22/25 18:33:00) Glucose Lvl: 106 mg/dL (08/22/25 18:33:00) BUN: 27 mg/dL High (08/22/25 18:33:00) Creatinine: 0.9 mg/dL (08/22/25 18:33:00) eGFR: 93 mL/min/1.73 m2 (08/22/25 18:33:00) BUN/Creat Ratio: 30 High (08/22/25 18:33:00) Sodium Lvl: 135 mmol/L (08/22/25 18:33:00) Potassium Lvl: 3.3 mmol/L Low (08/22/25 18:33:00) Chloride: 97 mmol/L Low (08/22/25 18:33:00) CO2: 27 mmol/L (08/22/25 18:33:00) AGAP: 14 mEq/L (08/22/25 18:33:00) Calcium Lvl: 10.3 mg/dL (08/22/25 18:33:00) Alk Phos: 71 Int._Unit/L (08/22/25 18:33:00) ALT: 25 Int._Unit/L (08/22/25 18:33:00) AST: 21 Int._Unit/L (08/22/25 18:33:00) Total Protein: 9 gm/dL High (08/22/25 18:33:00) Albumin Lvl: 5.2 gm/dL High (08/22/25 18:33:00) Globulin: 3.8 gm/dL (08/22/25 18:33:00) A/G Ratio: 1.4 (08/22/25 18:33:00) Bili Total: 0.7 mg/dL (08/22/25 18:33:00) Bili Direct: 0.2 mg/dL (08/22/25 18:33:00) Bili Indirect: 0.5 mg/dL (08/22/25 18:33:00) Lipase Lvl: 21 unit/L (08/22/25 18:33:00) Diagnostic Results No qualifying data available. Result Comment: Electronical ly Signed By: Sunday Johnson PA-C\.br\Date and Time Signed: 08/22/25 19:13 EDT\.br\Electronically Co-Signed By: Pradeep Preciado DO\.br\Date and Time Co-Signed: 08/22/25 21:55 EDT URINE CULTURE Observed: 05/06/2025 11:07 AM Status: F Source: [facility] >100,000 colonies/ml mixed bacterial skin contaminants 2 Days PERFORMED BY: [place] [address] PATHOLOGIST HRIS MANAGER FRAN NUNEZ M.D. Performed By: #### CUU #### [facility] [address] [place], [place] [id number] [facility] URINE CULTURE Observed: 05/04/2025 6:20 AM Status: F Source: [facility] <9,000 colonies/ml mixed bacterial skin contaminants 2 Days PERFORMED BY: [place] [address] PATHOLOGIST HRIS MANAGER FRAN NUNEZ M.D. Performed By: #### CUU #### [address] URINE CULTURE Observed: 01/23/2025 9:25 AM Status: F Source: [facility] >100,000 colonies/ml mixed bacterial skin contaminants 2 Days PERFORMED BY: [place] [address] PATHOLOGIST HRIS MANAGER IDANIA GODOY M.D. Performed By: #### CUU #### [facility] [address] [place] [address] ED NOTE-PHYSICIAN Observed: 01/16/2025 10:26 PM Status: F Source: [facility] ED Note-Physician Basic Information Time Seen: Ambrocio LOVE, Rashaad Smith 01/16/2025 17:56 Chief Complaint pt states she [...] and Complexity of Problems Differential Diagnosis: [] [facility] Data External documents reviewed: [] [...] day(s), # 21 tab(s), Refills(s) 0, Pharmacy: [facility] #[id number], 157, cm, 01/16/25 17:56:00 EST, Height/Length [...] food, # 20 tab(s), Refills(s) 0, Pharmacy: [facility]/pharmacy #[id number], 157, cm, 01/16/25 17:56:00 EST, Height/Length Dosing, 95, kg, 01/16/25 17:56:00 EST, Weight Dosing promethazine, 12.5 mg = 0.5 tab(s), Tab, Oral, Once, Stop date 01/16/25 19:41:00 EST, STAT, Start date 01/16/25 19:41:00 EST, 01/16/25 19:41:00 EST promethazine, 12.5 mg = 1 tab(s), Oral, q6hr, PRN for nausea/vomiting, # 10 tab(s), Refills(s) 0, Pharmacy: [facility]/pharmacy #[id number], 157, cm, 01/16/25 17:56:00 EST, Height/Length Dosing, 95, kg, 01/16/25 17:56:00 EST, Weight Dosing ABO/Rh ABO/Rh History Check Antibody Screen Basic Metabolic Panel Beta hCG Qual Blood Bank ID# CBC w/ Auto Diff CT Abdomen/Pelvis w/ Contrast CT Chest w/ Contrast CT Head or Brain w/o Contrast CT Spine Cervical w/o Contrast Drug Screen Urine ECG 12 Lead Adult ECG 12 Lead Adult ED Cardiac Monitoring eGFR Ethanol Level Hepatic Function Panel Lactic Acid Lipase Level NPO Diet Oxygen Therapy PT & PTT Pulse Oximetry Continuous Saline Lock Insert Troponin UA with Cult Rflx XR Knee Complete 4+ Views Left XR Knee Complete 4+ Views Right Medications Administered Given ibuprofen 800 mg Tab, 800 mg, Oral morphine 4 mg/mL Inj, 4 mg, IV Push promethazine 25 mg Tab, 12.5 mg, Oral Disposition Plan Patient Discharge Condition stable Discharge Disposition to home Discharge Prescription List Prescriptions cyclobenzaprine 5 mg Tab, 5 mg= 1 tab(s), Oral, TID naproxen 500 mg Tab, 500 mg= 1 tab(s), Oral, BID, PRN promethazine 12.5 mg oral tablet, 12.5 mg= 1 tab(s), Oral, q6hr, PRN Follow-up With When Contact Information OLEG CALVIN In 3 days [address] [phone] [phone] [facility] (1) Additional Instructions: Call Dr for diagnosis based follow up Patient Education RICE Therapy for Routine Care of Injuries Contusion Fall Prevention in the Home, Adult, Omgl-ih-Nfra Attestation Patient seen and evaluated by the physician administrative support assistant. Attending physician was present in the emergency department and supervised care. This visit was performed by both the physician and an APC. I performed all aspects of the MDM as documented. This report was transcribed using voice recognition software. Every effort was made to ensure accuracy, however, inadvertently computerized lead supply worker mistakes may be present. Appropriate healthcare PPE was used in evaluating this patient. The patient was placed in a mask. The healthcare provider was wearing mask, gloves, and utilizing proper hand hygiene. All equipment was properly cleansed. I performed a substantive part of the MDM during the patient???s E/M visit. I personally made or approved the documented management plan and acknowledge its risk of complications. (Independent Interpretation) My (EKG/X-Ray/US/CT as applicable) interpretation as above. (Discussion) Management/test interpretation discussed with APC. Problem List/Past Medical History Ongoing No qualifying data Historical No qualifying data Medications Inpatient No active inpatient medications Home cyclobenzaprine 5 mg Tab, 5 mg= 1 tab(s), Oral, TID Naprosyn 500 mg Tab, 500 mg= 1 tab(s), Oral, BID, PRN naproxen 500 mg Tab, 500 mg= 1 tab(s), Oral, BID, PRN Phenergan 12.5 mg Supp, 12.5 mg= 1 supp, Rectal, q8hr, PRN Phenergan 25 mg Supp, 25 mg= 1 supp, Rectal, q6hr, PRN promethazine 12.5 mg oral tablet, 12.5 mg= 1 tab(s), Oral, q8hr, PRN promethazine 12.5 mg oral tablet, 12.5 mg= 1 tab(s), Oral, q6hr, PRN Zofran ODT 4 mg Tab-Dis, 4 mg= 1 tab(s), Oral, q8hr, PRN Allergies Haldol (facial droop) Reglan (Unknown) Social History Alcohol Substance Abuse Marijuana, 08/01/2024 Tobacco Never (less than 100 in lifetime) Tobacco Use:. Never Smokeless Tobacco Use:., 03/13/2024 Lab Results WBC: 12 E9/L High (01/16/25 19:26:00) RBC: 5.6 E12/L (01/16/25 19:26:00) HGB: 16 gm/dL (01/16/25:26:00) Hct: 46.9 % High (01/16/25:26:00) MCV: 84.3 fL (01/16/25 19:26:00) MCH: 28.8 pg (01/16/25 19:26:00) MCHC: 34.1 gm/dL (01/16/25 19:26:00) RDW: 13.7 % (01/16/25::) Platelet: 300 E9/L (01/16/25::00) MPV: 8.9 fL (01/16/25:) Neutro Auto: 83.4 % High (01/16/25::) Lymph Auto: 11.6 % Low (01/16/25::) Bamberg Auto: 4.7 % (01/16/25::) Eos Auto: 0 % (01/16/25::) Basophil Auto: 0.3 % (01/16/25::) Neutro Absolute: 10 E9/L High (01/16/25:) Lymph Absolute: 1.4 E9/L (01/16/25:) Bamberg Absolute: 0.6 E9/L (01/16/25::) Eos Absolute: 0 E9/L (01/16/25:) Basophil Absolute: 0 E9/L (01/16/25:) PT: 12.3 second(s) (01/16/25::) INR: 1.1 (01/16/25:) PTT: 23.1 second(s) Low (01/16/25:) Glucose Lvl: 116 mg/dL (01/16/25::) BUN: 23 mg/dL High (01/16/25::) Creatinine: 0.9 mg/dL (01/16/25::) eGFR: 93 mL/min/1.73 m2 (01/16/25::) BUN/Creat Ratio: 26 High (01/16/25::) Sodium Lvl: 140 mmol/L (01/16/25::00) Potassium Lvl: 3.3 mmol/L Low (01/16/25::00) Chloride: 101 mmol/L (01/16/25::00) CO2: 22 mmol/L (01/16/25::) AGAP: 20 mEq/L High (01/16/25::00) Calcium Lvl: 10.9 mg/dL (01/16/25::00) Alk Phos: 71 Int._Unit/L (01/16/25::00) ALT: 42 Int._Unit/L (01/16/25::00) AST: 19 Int._Unit/L (01/16/25::00) Total Protein: 9.1 gm/dL High (01/16/25::00) Albumin Lvl: 5.5 gm/dL High (01/16/25::00) Globulin: 3.6 gm/dL (01/16/25::00) A/G Ratio: 1.5 (01/16/25::) Bili Total: 1 mg/dL (01/16/25::00) Bili Direct: 0.2 mg/dL (01/16/25::00) Bili Indirect: 0.8 mg/dL (01/16/25::00) Lipase Lvl: 8 unit/L Low (01/16/25::00) Lactic Acid Lvl: 1.6 mmol/L (01/16/25::00) Troponin HS: 3.4 pg/mL Low (01/16/25::00) Ethanol Lvl: <10 (01/16/25::00) Beta hCG Ql: NEGATIVE1 (01/16/25::00) ABO/Rh: A POS (01/16/25::00) ABSC Gel Interp: Negative (01/16/25::00) Diagnostic Results No qualifying data available. EKG Results EC01/16/25: SINUS BRADYCARDIA WITH SINUS ARRHYTHMIA MODERATE T-WAVE ABNORMALITY, CONSIDER ANTERIOR ISCHEMIA [-0.1+ mV T WAVE IN V3/V4] ABNORMAL ECG Signed By: Ebony Birmingham, [facility] 01/16/2025 19:10:32 Result Comment: Electronical ly Signed By: Ambrocio LOVE, Rashaad Smith\.br\Date and Time Signed: 01/16/25 22:30 EST\.br\Electronically Co-Signed By: August Beck M.D..br\Date and Time Co-Signed: 01/17/25 08:51 EST ED PATIENT EDUCATION NOTE Observed: 12/29 8:36 PM Status: F Source: [facility] ED Patient Education Note Caregiving Fall Prevention [...] Keep items that you use often in hwbc-th-pglrv places. Lower the shelves around your home [...] the way. ??? Do not use floor yakut or wax that makes floors slippery. What [...] ??? Centers for Disease Control and Prevention, STEADI: cdc.gov ??? National [place] on Aging: jacob.nih.gov ??? National [place] on Aging: jacob.nih.gov Contact a doctor if: [...] see if the symptoms will go away. ??? Do not drive yourself to the hospital. This information is not intended to replace advice given to you by your health care provider. Make sure you discuss any questions you have with your health care provider. Document Revised: 07/18/2023 Document Reviewed: 07/18/2023 [employer] Patient Education ? 2023 [employer]Orthopedics RICE Therapy for Routine Care of Injuries The routine care of many injuries includes rest, ice, compression, and elevation (RICE therapy). RICE therapy is often recommended for injuries to soft tissues, such as muscle strain, sprains, bruises, and overuse injuries. It can also be used for some bone injuries. Using RICE therapy can help to relieve pain and lessen swelling. Supplies needed: ??? Ice. ??? Plastic bag. ??? Towel. ??? Elastic bandage. ??? Pillow or pillows to raise (elevate) the [...] your activities and whether you should start ajxqd-zq-qiddsl exercises for your injury. Ice Ice your injury to lessen swelling and pain. Do not apply ice directly to your skin. ??? Put ice in a plastic bag. ??? Place a towel between your skin and the bag. ??? Leave the ice on for 20 minutes, 2?3 times a day. Use ice on as many days as told by your health care provider. Compression Put pressure (compression) on your injured area to control swelling, give support, and help with discomfort. Compression may be done with an elastic bandage. If an elastic bandage has been applied, follow these general tips: ??? Use the bandage as directed by the maker of the bandage that you are using. ??? Do not?wrap the bandage too tightly. That may block (cut off) circulation in the arm or leg in the area below the bandage. ? If part of your body beyond the bandage becomes blue, numb, cold, swollen, or more painful, your bandage is probably too tight. If this occurs, remove your bandage and reapply it more loosely. ??? Remove and reapply the bandage every 3?4 hours or as told by your health care provider. ??? See your health care provider if the bandage seems to be making your problems worse rather than better. Elevation Elevate your injured area to lessen swelling and pain. If possible, elevate your injured area at or above the level of your heart or the center of your chest. Contact a health care provider if: ??? Your pain and swelling continue. ??? Your symptoms are getting worse rather than [...] be ready. Get help right away if: ??? You have sudden severe pain at or below the area of your injury. ??? You have redness or increased swelling around your injury. ??? You have tingling or numbness at or below the area of your injury and it does not improve after you remove the elastic bandage. Summary ??? The routine care of many injuries includes rest, ice, compression, and elevation (RICE therapy). Using RICE therapy can help to relieve pain and lessen swelling. ??? RICE therapy is often recommended for injuries to soft tissues, such as muscle strain, sprains, bruises, and overuse injuries. It can also be used for some bone injuries. ??? Seek medical care if your pain and swelling continue or if your symptoms are getting worse rather than improving. This information is not intended to replace advice given to you by your health care provider. Make sure you discuss any questions you have with your health care provider. Document Revised: 2021 Document Reviewed: 08/04/2018 [employer] Patient Education ? 2020 [employer] Contusion A contusion is a deep bruise. [...] your pain. Managing pain, stiffness, and swelling ??? Use resting, icing, applying pressure (compression), and raising (elevating) the injured area. This is often called the RICE method. ? Rest the injured area. Return to your normal activities as told by your health care provider. Ask your health care provider what activities are safe for you. ? If directed, put ice on the injured area. To do this: ? Put ice in a plastic bag. ? Place a towel between your skin and the bag. ? Leave the ice on for 20 minutes, 2?3 times a day. ? If your skin turns bright red, remove the ice right away to prevent skin damage. The risk of skin damage is higher if you cannot feel pain, heat, or cold. ? If directed, apply light compression to the injured area using an elastic bandage. Make sure the bandage is not wrapped too tightly. Remove and reapply the bandage as directed by your health care provider. ? If possible, elevate the injured area above the level of your heart while you are sitting or lying down. General instructions ??? Take lfkt-qix-kjxkwnb and prescription medicines only as told by your health care provider. ??? Keep all follow-up visits. Your health care provider may want to see how your contusion is healing with treatment. Contact a health care provider if: ??? Your symptoms do not improve after several days of treatment. ??? Your symptoms get worse. ??? You have difficulty moving the injured area. Get help right away if: ??? You have severe pain. ??? You have numbness in a hand or foot. ??? Your hand or foot turns pale or cold. This information is not intended to replace advice given to you by your health care provider. Make sure you discuss any questions you have with your health care provider. Document Revised: 05/02/2023 Document Reviewed: 05/02/2023 [employer] Patient Education ? 2023 [employer]. ED PATIENT SUMMARY Observed: 01/16/2025 8:36 PM Status: F Source: [facility] ED Patient Summary [address] [address] Patient Discharge Instructions Person Information Name: CORAL SEGURA Age: 19 Years Arrival Date: 01/16/2025 17:51:31 Discharge Diagnosis: Abdominal contusion; Fall down steps; Knee contusion Primary Care Physician: OLEG CALVIN CNP Provider Information Primary Provider: Ebony BirminghamAugust Advanced Aluminum Siding Applicator:Rashaad Albrecht PA-C The exam and treatment you received in the Emergency Department were for an urgent problem and are not intended as complete care. It is important that you follow up with a doctor, nurse practitioner, or physician???s administrative support assistant for ongoing care. If your symptoms become worse or you do not improve as expected and you are unable to reach your usual health care provider, you should return to the Emergency Department. We are available 24 hours a day. CORAL SEGURA has been given the following list of patient education materials, prescriptions and follow-up instructions: Follow-up Instructions: With: Address: When: OLEG NIKUNJ [place] [address] [phone] Business (1) In 3 days 2025 Comments: Call Dr for diagnosis based follow up In the event that this physician does not participate in your insurance network, please consult with your insurance company to find a nearby participating provider. Patient Education Materials: RICE Therapy for Routine Care of Injuries; Contusion; Fall Prevention in the Home, Adult, Zyat-wo-Zhpv A MESSAGE TO ALL PATIENTS REGARDING OPIOIDS PRESCRIPTION OPIOIDS: WHAT YOU NEED TO KNOW Prescription opioids can be used to help relieve csehhksm-sg-lfhqac pain and are often prescribed following a [...] guidance from the Food and Drug Administration (www.fda.gov/Drugs/ResourcesForYou). ??? Visit www.cdc.gov/drugoverdose to learn about the risks of opioids abuse and overdose. ??? If you believe you may be struggling with addiction, tell your health client care coordinator and ask for guidance or call [facility]???S National Helpline at 8-448-417-HELP. v Source: US Department of Health and Human Services/Center for Disease Control & Prevention [facility] Medications Given: Medication Dose Route morphine 4.00 mg IV Push Right Hand ibuprofen 800.00 mg Oral promethazine 12.50 mg Oral Medication Information: New Medications [id number], [address], [place] [phone], [phone] cyclobenzaprine (cyclobenzaprine 5 mg Tab) 1 Tablets By Mouth 3 times a day for 7 Days. Refills: 0. Medications to Continue Taking That Have Changed [id number], [address], [place] [phone], [phone] START: naproxen (naproxen 500 mg Tab) 1 [...] 8 hours as needed Nausea/Vomiting. Refills: 0. Comment: Patient Portal You may access all of your results and other medical record information on our secure patient portal. If you are not signed up for this yet, please contact [employer] at [phone] to get signed up today. RAFAEL Award Nomination The RAFAEL (Diseases Attacking the Immune SYstem) Award is an international recognition program that honors and celebrates the skillful, compassionate care nurses provide every day. Anyone who experiences or observes amazing care being provided by a nurse is encouraged to submit a nomination. To nominate your nurse, use your smart phone to scan the QR code below. You may receive a survey from Janeen Holden asking you to rate your care experience. Your feedback is important and will help us understand what we do well and how we can improve the quality of care we provide to you, your loved ones and our community. It???s an honor to serve you. Thank you for choosing [facility] Patient Education Materials: RICE Therapy for Routine Care of Injuries The routine care of many injuries includes rest, ice, compression, and elevation (RICE therapy). RICE therapy is often recommended for injuries to soft tissues, such as muscle strain, sprains, bruises, and overuse injuries. It can also be used for some bone injuries. Using RICE therapy can help to relieve pain and lessen swelling. Supplies needed: ??? Ice. ??? Plastic bag. ??? Towel. ??? Elastic bandage. ??? Pillow or pillows to raise (elevate) the [...] your activities and whether you should start msnfc-mc-xthfbp exercises for your injury. Ice Ice your injury to lessen swelling and pain. Do not apply ice directly to your skin. ??? Put ice in a plastic bag. ??? Place a towel between your skin and the bag. ??? Leave the ice on for 20 minutes, 2?3 times a day. Use ice on as many days as told by your health care provider. Compression Put pressure (compression) on your injured area to control swelling, give support, and help with discomfort. Compression may be done with an elastic bandage. If an elastic bandage has been applied, follow these general tips: ??? Use the bandage as directed by the maker of the bandage that you are using. ??? Do not?wrap the bandage too tightly. That may block (cut off) circulation in the arm or leg in the area below the bandage. ? If part of your body beyond the bandage becomes blue, numb, cold, swollen, or more painful, your bandage is probably too tight. If this occurs, remove your bandage and reapply it more loosely. ??? Remove and reapply the bandage every 3?4 hours or as told by your health care provider. ??? See your health care provider if the bandage seems to be making your problems worse rather than better. Elevation Elevate your injured area to lessen swelling and pain. If possible, elevate your injured area at or above the level of your heart or the center of your chest. Contact a health care provider if: ??? Your pain and swelling continue. ??? Your symptoms are getting worse rather than [...] be ready. Get help right away if: ??? You have sudden severe pain at or below the area of your injury. ??? You have redness or increased swelling around your injury. ??? You have tingling or numbness at or below the area of your injury and it does not improve after you remove the elastic bandage. Summary ??? The routine care of many injuries includes rest, ice, compression, and elevation (RICE therapy). Using RICE therapy can help to relieve pain and lessen swelling. ??? RICE therapy is often recommended for injuries to soft tissues, such as muscle strain, sprains, bruises, and overuse injuries. It can also be used for some bone injuries. ??? Seek medical care if your pain and swelling continue or if your symptoms are getting worse rather than improving. This information is not intended to replace advice given to you by your health care provider. Make sure you discuss any questions you have with your health care provider. Document Revised: 2021 Document Reviewed: 08/04/2018 [employer] Patient Education ? 2020 [employer] Contusion A contusion is a deep bruise. [...] your pain. Managing pain, stiffness, and swelling ??? Use resting, icing, applying pressure (compression), and raising (elevating) the injured area. This is often called the RICE method. ? Rest the injured area. Return to your normal activities as told by your health care provider. Ask your health care provider what activities are safe for you. ? If directed, put ice on the injured area. To do this: ? Put ice in a plastic bag. ? Place a towel between your skin and the bag. ? Leave the ice on for 20 minutes, 2?3 times a day. ? If your skin turns bright red, remove the ice right away to prevent skin damage. The risk of skin damage is higher if you cannot feel pain, heat, or cold. ? If directed, apply light compression to the injured area using an elastic bandage. Make sure the bandage is not wrapped too tightly. Remove and reapply the bandage as directed by your health care provider. ? If possible, elevate the injured area above the level of your heart while you are sitting or lying down. General instructions ??? Take mqci-khl-htrmdgc and prescription medicines only as told by your health care provider. ??? Keep all follow-up visits. Your health care provider may want to see how your contusion is healing with treatment. Contact a health care provider if: ??? Your symptoms do not improve after several days of treatment. ??? Your symptoms get worse. ??? You have difficulty moving the injured area. Get help right away if: ??? You have severe pain. ??? You have numbness in a hand or foot. ??? Your hand or foot turns pale or cold. This information is not intended to replace advice given to you by your health care provider. Make sure you discuss any questions you have with your health care provider. Document Revised: 05/02/2023 Document Reviewed: 05/02/2023 [employer] Patient Education ? 2023 [employer] Fall Prevention in the Home, Adult Falls [...] Keep items that you use often in lavl-nv-gilqa places. Lower the shelves around your home [...] the way. ??? Do not use floor yakut or wax that makes floors slippery. What [...] Control and Prevention, [place]ST[place]: cdc.gov ??? National [place] on Aging: jacob.nih.gov ??? National [place] on Aging: jacob.nih.gov Contact a doctor if: [...] see if the symptoms will go away. ??? Do not drive yourself to the hospital. This information is not intended to replace advice given to you by your health care provider. Make sure you discuss any questions you have with your health care provider. Document Revised: 07/18/2023 Document Reviewed: 07/18/2023 [employer] Patient Education ? 2023 [employer] I, CORAL SEGURA , have received the following patient education materials/instructions and have verbalized understanding: Patient Education Materials: RICE Therapy for Routine Care of Injuries; Contusion; Fall Prevention in the Home, Adult, Bgsj-nm-Zufy Follow-up Instructions: With: Address: When: OLEG [place] [address] [phone] Business (1) In 3 days 2025 Comments: Call Dr for diagnosis based follow up Patient Signature Date Clinician/Nurse Signature Date 01/16/2025 20:36:17 ED CLINICAL SUMMARY Observed: 01/16/2025 8:36 PM Status: F Source: [facility] ED Clinical Summary [address] [address] ED Clinical Summary Person Information Name: CORAL SEGURA [facility] Age: 19 Years : 2005 Sex: Female Language: Mexican PCP: OLEG CALVIN CNP Marital Status: Single Visit Id: Visit [...] 01/16/2025 20:36:16 01/16/2025 20:36:16 ADDRESS: [address] [facility] [id number] PHYS DOC NOTES: MEDICAL INFORMATION: Prescriptions Given: New Medications [facility]/pharmacy #[id number], [address], [place] [phone], [phone] cyclobenzaprine (cyclobenzaprine 5 mg Tab) 1 Tablets By Mouth 3 times a day for 7 Days. Refills: 0. Medications to Continue Taking That Have Changed [facility]/pharmacy #[id number], [address], [place] [phone], [phone] START: naproxen (naproxen 500 mg Tab) 1 [...] Contusion; Fall Prevention in the Home, Adult, Qrrd-is-Pqgm Follow up: With: Address: When: OLEG CALVIN [address] [place] [address] [phone] Decisyon (1) In 3 days 2025 Comments: Call Dr for diagnosis based follow up DIAGNOSIS: Abdominal contusion; Fall down steps; Knee contusion CBC W/ AUTO DIFF Collected: 01/16/2025 7:26 PM Statu s: F Source: [facility] TYPE CODE TESTS RESULT OUT OF RANGE REFERENCE UNITS LAB 80911-1(LOINC) LEUKOCYTES^^SONAL ECTED FOR NUCLEATED ERYTHROCYTES:NCN C:PT:BLD:QN:AUTO MATED COUNT 12.0 High 4.0-11.0 E9/L LAB 789-8(LOINC) ERYTHROCYTES:NCN C:PT:BLD:QN:AUTO MATED COUNT 5.6 Normal 4.3-5.9 E12/L LAB 718-7(LOINC) HEMOGLOBIN:MCNC: PT:BLD:QN: 16.0 Normal 12.0-16.0 gm/dL LAB 4544-3(LOINC) HEMATOCRIT:VFR:P T:BLD:QN:AUTOMAT ED COUNT 46.9 High 34.0-46.0 % LAB 788-0(LOINC) ERYTHROCYTE DISTRIBUTION WIDTH:RATIO:PT:R BC:QN:AUTOMATED COUNT 13.7 Normal 10.9-14.2 % LAB 785-6(INC) ERYTHROCYTE MEAN CORPUSCULAR HEMOGLOBIN:ENTMA SS:PT:RBC:QN:AUT OMATED COUNT 28.8 Normal 27.0-34.0 pg LAB 786-4(INC) ERYTHROCYTE MEAN CORPUSCULAR HEMOGLOBIN CONCENTRATION:MC NC:PT:RBC:QN:AUT OMATED COUNT 34.1 Normal 31.4-36.0 gm/dL LAB 787-2([facility]) ERYTHROCYTE MEAN CORPUSCULAR VOLUME:ENTVOL:PT :RBC:QN:AUTOMATE D COUNT 84.3 Normal 80.0-100.0 fL LAB 51325-0([facility]) PLATELET MEAN VOLUME:ENTVOL:PT :BLD:QN:AUTOMATE D COUNT 8.9 Normal 6.4-10.8 fL LAB 777-3([facility]) PLATELETS:NCNC:P T:BLD:QN:AUTOMAT ED COUNT 300.0 Normal 150.0-500.0 E9/L LAB 43259-2([facility]) NEUTROPHILS/100 LEUKOCYTES:NFR:P T:BLD:QN: 83.4 High 36.0-75.0 % LAB 731-0(INC) LYMPHOCYTES:NCNC :PT:BLD:QN:AUTOM ATED COUNT 11.6 Low 14.0-50.0 % LAB 742-7(INC) MONOCYTES:NCNC:P T:BLD:QN:AUTOMAT ED COUNT 0.6 Normal 0.2-1.0 E9/L LAB 713-8(INC) EOSINOPHILS/100 LEUKOCYTES:NFR:P T:BLD:QN:AUTOMAT ED COUNT 0.0 Normal 0.0-8.0 % LAB 704-7(INC) BASOPHILS:NCNC:P T:BLD:QN:AUTOMAT ED COUNT 0.3 Normal 0.0-2.0 % LAB 751-8(INC) NEUTROPHILS:NCNC :PT:BLD:QN:AUTOM ATED COUNT 10.0 High 2.0-7.5 E9/L LAB 99721-5(INC) LYMPHOCYTES:NCNC :PT:BLD:QN: 1.4 Normal 1.0-4.0 E9/L LAB 62530-6(INC) EOSINOPHILS:NCNC :PT:BLD:QN: 0.0 Normal 0.0-0.5 E9/L LAB 87179-4(LOINC) BASOPHILS/LEUKOC YTES:NFR.DF:PT:B LD:QN:AUTOMATED COUNT 0.0 Normal 0.0-0.2 E9/L Performed By: #### [id number] # ### [facility] [address] [place] [address] TROPONIN Collected: 7:26 PM Status: F Source: [facility] TYPE CODE TESTS RESULT OUT OF RANGE REFERENCE UNITS LAB 70820310([facility]) Troponin HS 3.40 Low 10.10-27.10 pg/mL Result Comment: The 95% CI ( Confidence Interval) PPV (Positive Predictive Value) for myocardial infarction in females is 38 pg/mL, in males 51 pg/mL. The results should be used in conjunction with clinical conditions of myocardial infarction. (Access High Sensitivity Troponin I Instructions For Use, [employer], June 2018) Performed By: #### [id number] # ### [facility] [address] [place] [address] B HCG QUAL Collected: 01/16/2025 7:26 PM Status: F Source: [facility] TYPE CODE TESTS RESULT OUT OF RANGE REFERENCE UNITS LAB 2110-5([facility]) CHORIOGONADOT ROPIN.BETA SUBUNIT ( TEST):PRTHR:P T:SER/PLAS:OR D: NEGATIVE Normal Performed By: #### [id number] #### [facility] [address] [place] [address] BMP Collected: 7:26 PM Status: F Source: [facility] TYPE CODE TESTS RESULT OUT OF RANGE REFERENCE UNITS LAB 2345-7(LOINC) GLUCOSE:MCNC :PT:SER/PLAS :QN: 116 Normal 55-199 mg/dL LAB 3094-0(LOINC) UREA NITROGEN:MCN C:PT:SER/MARCIN S:QN: 23 High 5-21 mg/dL LAB 2160-0(LOINC) CREATININE:M CNC:PT:SER/P LAS:QN: 0.9 Normal 0.5-1.3 mg/dL LAB 3097-3(LOINC) UREA NITROGEN/CRE ATININE:MRTO :PT:SER/PLAS :QN: 26 High 10-20 No Units LAB 12626-2([facility]) CALCIUM:MCNC :PT:SER/PLAS :QN: 10.9 Normal 8.9-11.1 mg/dL LAB 2951-2([facility]) SODIUM:SCNC: PT:SER/PLAS: QN: 140 Normal 135-145 mmol/L LAB 2823-3([facility]) POTASSIUM:SC NC:PT:SER/PL :QN: 3.3 Low 3.5-5.3 mmol/L LAB 2075-0([facility]) CHLORIDE:SCN C:PT:SER/MARCIN S:QN: 101 Normal 101-111 mmol/L LAB 2027-9([facility]) CARBON DIOXIDE:SCNC :PT:SER/PLAS :QN: 22 Normal 21-31 mmol/L LAB 70222-7([facility]) ANION GAP:SCNC:PT: SER/PLAS:QN: 20 High 6-16 mEq/L Performed By: #### [id number] # ### [facility] [address] [place] [address] LACTIC ACID Collected: 01/16/2025 7:26 PM Status: F Source: [facility] TYPE CODE TESTS RESULT OUT OF RANGE REFERENCE UNITS LAB 16360524([facility]) Lactic Acid Lvl 1.6 Normal 0.5-2.2 mmol/L Performed By: #### [id number] # ### [facility] [address] [place] [address] LIPASE LEVEL Collected: 01/16/2025 7:26 PM Status: F Source: [facility] TYPE CODE TESTS RESULT OUT OF RANGE REFERENCE UNITS LAB 3040-3([facility]) TRIACYLGLYCEROL LIPASE:CCNC:PT:SER/ PLAS:QN: 8 Low 13-58 unit/L Performed By: #### [id number] # ### [facility] [address] [place] [address] ABO/RH Collected: 7:26 PM Status: F Source: [facility] TYPE CODE TESTS RESULT OUT OF RANGE REFERENCE UNITS LAB 02097170(LOINC) ABO/Rh A POS Unknown Performed By: #### [id number] # ### [facility] [address] [place] [address] ABO/RH HISTORY CHECK Collected: 01/16/2025 7:26 PM S tatus: F Source: [facility] TYPE CODE TESTS RESULT OUT OF RANGE REFERENCE UNITS LAB 91560480(LOINC) ABO/Rh History Check Verified Hx Blood Type Normal Performed By: #### [id number] #### [facility] [address] [place] [address] ABSC Collected: 01/16/2025 7:26 PM Status: F Source: [facility] TYPE CODE TESTS RESULT OUT OF RANGE REFERENCE UNITS LAB 35722457(INC) ABSC Gel Interp Negative Normal Performed By: #### [id number] #### [facility] [address] [place] [address] BLOOD BANK ID# Collected: 7:26 PM Status: F Source: [facility] TYPE CODE TESTS RESULT OUT OF RANGE REFERENCE UNITS LAB [id number]([facility]) BBID# [id number] Unknown Performed By: #### [id number] #### [facility] [address] [place] [address] EGFR Collected: 7:26 PM Status: F Source: [facility] TYPE CODE TESTS RESULT OUT OF RANGE REFERENCE UNITS LAB 15303037(LOINC) eGFR 93 Normal >=59 mL/min/1 .7 3 m2 Performed By: #### [id number] #### [facility] [address] [place] [address] PT & PTT Collected: 7:26 PM Status: F Source: [facility] TYPE CODE TESTS RESULT OUT OF RANGE REFERENCE UNITS LAB 5902-2(LOINC) COAGULATION TISSUE FACTOR INDUCED:TIME:P T:PPP:QN:COAG 12.3 Normal 9.4-12.5 second(s ) Result Comment: 15 days - 4 weeks 1 - [...] the same coagulation reagent and instrumentation as [facility]. Currently there are no coagulation studies available worldwide for children to 14 days, and no normal ranges. LAB 84580-4([facility]) COAGULATION SURFACE INDUCED:TIME:P T:PPP:QN:COAG 23.1 Low 25.1-36.5 second(s ) Result Comment: Parameter 15 days - 4 weeks 1 - [...] the same coagulation reagent and instrumentation as [facility]. Currently there are no coagulation studies available worldwide for children to 14 days, and no normal ranges. Heparin therapeutic range (represented by Anti-Factor Xa activity of 0.2 - 0.4 U/mL) corresponds to PTT of 56.6 - 109.0 sec. LAB 6301-6([facility]) COAGULATION TISSUE FACTOR INDUCED.INR:RE LTIME:PT:PPP:Q N:COAG 1.10 Unknown Result Comment: INR results are specifically intended to assess patients stabilized on long-term Anticoagulation therapy suggested INR???s ???Less Intensive Anticoagulation??? 2.0 ??? 3.0 Conventional Range 3.0 ??? 4.5 Performed By: #### [id number] #### [facility] [address] [place] [address] ETHANOL Collected: 7:26 PM Status: F Source: [facility] TYPE CODE TESTS RESULT OUT OF RANGE REFERENCE UNITS LAB 79022652([facility]) Ethanol Lvl <10 Normal <=11 mg/d L Performed By: #### [id number] # ### [facility] [address] [place] [address] HEP FUNC PANEL Collected: 01/16/2025 7:26 PM Status: F Source: [facility] TYPE CODE TESTS RESULT OUT OF RANGE REFERENCE UNITS LAB 1744-2([facility]) ALANINE AMINOTRANSFERA SE:CCNC:PT:SER /PLAS:QN:NO ADDITION OF P-5'-P 42 Normal 6-46 Int._Unit /L LAB 1920-8([facility]) ASPARTATE AMINOTRANSFERA SE:CCNC:PT:SER /PLAS:QN: 19 Normal 5-43 Int._Unit /L LAB 1751-7([facility]) ALBUMIN:MCNC:P T:SER/PLAS:QN: 5.5 High 3.3-5.0 gm/dL LAB 19806-9([facility]) GLOBULIN:MCNC: PT:SER:QN:CALC ULATED 3.6 Normal 1.4-4.0 gm/dL LAB 49009-7([facility]) ALBUMIN/GLOBUL IN:MCRTO:PT:SE R:QN: 1.5 Normal 1.1-2.2 LAB 6768-6([facility]) ALKALINE PHOSPHATASE:CC NC:PT:SER/PLAS :QN: 71 Normal 21-98 Int._Unit /L LAB 1968-7([facility]) BILIRUBIN.GLUC URONIDATED+MAMTA IRUBIN.ALBUMIN BOUND:MCNC:PT: SER/PLAS:QN: 0.2 Normal 0.0-0.4 mg/dL LAB 15404-7([facility]) BILIRUBIN.NON- GLUCURONIDATED :MSCNC:PT:SER/ PLAS:QN: 0.8 Normal 0.1-0.9 mg/dL LAB 1975-2([facility]) BILIRUBIN:MCNC :PT:SER/PLAS:Q N: 1.0 Normal 0.0-1.1 mg/dL LAB 2885-2([facility]) PROTEIN:MCNC:P T:SER/PLAS:QN: 9.1 High 6.0-7.8 gm/dL Performed By: #### [id number] # ### [facility] [address] [place] [address] XR KNEE COMPLETE 4+ VIEWS RIGHT Observed: 01/16/2025 6:25 PM Status: F Source: [facility] Exam Date/Time: 01/16/2025 18:41 EST Reason for [...] Araya DO Transcribed by: KIRA Technologist: DES XR KNEE COMPLETE 4+ VIEWS LEFT Observed: 01/16/2025 6:25 PM Status: F Source: [facility] Exam Date/Time: 01/16/2025 18:41 EST Reason for [...] Araya DO Transcribed by: KIRA Technologist: DES CT ABDOMEN/PELVIS W/ CONTRAST Observed: 01/16/2025 6:01 PM Status: F Source: [facility] Exam Date/Time: 01/16/2025 18:35 EST Reason for [...] Dolan MD Transcribed by: KIRA Technologist: FABIÁN CT CHEST W/ CONTRAST Observed: 6:01 PM Status: F Source: [facility] Exam Date/Time: 01/16/2025 18:35 EST Reason for [...] lymph nodes. Vasculature: No aneurysm or dissection. Mesentery/peritoneum/retroperitoneum: No ascites, organized fluid collection, inflammatory changes, [...] Dolan MD Transcribed by: KIRA Technologist: FABIÁN CT HEAD OR BRAIN W/O CONTRAST Observed: 01/16/2025 6:01 PM Status: F Source: [facility] Exam Date/Time: 01/16/2025 18:30 EST Reason for [...] Dolan MD Transcribed by: KIRA Technologist: FABIÁN CT SPINE CERVICAL W/O CONTRAST Observed: 01/16/2025 6:01 PM Status: F Source: [facility] Exam Date/Time: 01/16/2025 18:31 EST Reason for [...] Dolan MD Transcribed by: KIRA Technologist: FABIÁN PRE-ARRIVAL NOTE Observed: 01/16/2025 5:51 PM Status: F Source: [facility] Pre-Arrival Note Pre-Arrival Summary Name: , ncems Current Date: 01/16/2025 17:51:59 EST Gender: Female Date of : Age: 19 Pre-Arrival Type: EMS ETA: 01/16/2025 18:12:00 EST Primary Care Physician: Presenting Problem: fall Pre-Arrival User: Referring Source: Location: Completion Date/Time: 01/16/2025 17:42:00 [facility] Pre-Hospital Report Form Vital Signs: Pre-Hospital Report: Treatment in Route: Response to Treatment: Misc. Issues: POTASSIUM Collected: 10:35 PM Status: F Source: [facility] TYPE CODE TESTS RESULT OUT OF RANGE REFERENCE UNITS LAB K Potassium 2.9 Low Off Scale 3.5-5.1 mmol/L Result Comment: Critical Res ult Called to and read back by: RYLAN BELL at: 10/28/2024 23:09:11 by:MO PERFORMED BY: [place] [address] PATHOLOGIST HRIS MANAGER IDANIA GODOY M.D. Performed By: #### K #### [address] DIPSTICK AND MICROSCOPIC Collected: 11/2023 9:40 PM Status: F Source: [facility] Order Comment: Name Collecti on Type:: Clean-Voided Midstream TYPE CODE TESTS RESULT OUT OF RANGE REFERENCE UNITS LAB UCOL Color,Urine Light-[place] Abnormal Alert Yellow LAB UAPP Appearance,Ur ine Turbid Abnormal Alert Clear LAB USG Specificy [place],Urine 1.029 Normal 1.001-1.030 LAB UPH pH,Urine 8.0 Normal 5.0-9.0 LAB ULE Leukocyte Esterase,Urin e 3+ High Negative LAB UNIT Nitrite,Urine Negative Negative LAB UPRO Protein,Urine 100 High Negative mg/dL LAB UGL Glucose,Urine (UA) Normal Normal LAB UKET Ketones,Urine 3+ High Negative LAB UURO Urobilinogen, Urine 6 High Normal mg/dL LAB UBIL Bilirubin,Uri ne Negative Negative LAB UBLD Occult Blood,Urine 3+ High Negative LAB URBC RBC,Urine Innumerable High 0-4 LAB UWBC WBC,Urine 50 High 0-4 [HPF] LAB USQEPI Squamous Epithelial Cell,Urine 1 0-2 [HPF] LAB UBACT Bacteria,Urin e 1+ High None Seen LAB UHYALC Hyaline Casts,Urine 9 High 0-8 [LPF] LAB MUCUS Mucus,Urine 4+ Abnormal Alert Performed By: #### CUU, UHCG , ADDONUAPLUS #### [place] [id number] [facility] HCG,URINE Collected: 9:40 PM Status: F Source: [facility] Order Comment: Name Collecti on Type:: Clean-Voided Midstream TYPE CODE TESTS RESULT OUT OF RANGE REFERENCE UNITS LAB UHCGQ HCG Qualitative, Urine Negative Result Comment: PERFORMED BY : [place] [address] PATHOLOGIST HRIS MANAGER IDANIA GODOY M.D. Performed By: #### CUU, UHCG , ADDONUAPLUS #### [address] URINE CULTURE Observed: 10/28/2024 9:40 PM Status: F Source: [facility] 75,000 colonies/ml mixed bacterial skin contaminants 2 Days PERFORMED BY: [place] [address] PATHOLOGIST HRIS MANAGER IDANIA GODOY M.D. Performed By: #### CUU, UHCG , ADDONUAPLUS #### [place] [id number] [facility] DRUG SCREEN,URINE Collected: 10/28/2024 9:40 PM Stat us: F Source: [facility] TYPE CODE TESTS RESULT OUT OF RANGE REFERENCE UNITS LAB URAMPS Amphetamine Screen,Urine Negative Negative LAB URBARBS Barbiturate Screen,Urine Negative Negative LAB URBENZS Benzodiazepines Screen,Urine Negative Negative LAB URCOCS Cocaine Screen,Urine Negative Negative LAB UROPIS Opiate Screen,Urine Negative Negative LAB URPCPS Phencyclidine Screen,Urine Negative Negative LAB URTHCS Cannabinoid Screen,Urine Positive High Negative Result Comment: These are un confirmed results and should not be used for legal purposes. Drug Cut-Off Concentration: AMPH 1000 ng/mL NIKOLAS 200 ng/mL SHRAVAN 200 ng/mL COCM 300 ng/mL OP 300 ng/mL PCP 25 ng/mL THC 20 ng/mL PERFORMED BY: [place] [address] PATHOLOGIST HRIS MANAGER IDANIA GODOY M.D. Performed By: #### URDS #### [address] ECG 12 LEAD ECG Observed: 10/28/2024 7:38 PM Status: COMPLETED Source: [facility] [place] [address] Electrocardiograph Report Signed Patient: Coral Segura MR#: [id number] 1526 : 2005 Acct:[id number] Age/Sex: 19 / F ADM Date: 10/28/24 Loc: ER Room: Type: [facility] ER Attending Dr: Ordering Provider: Rd [...] ms Normal sinus rhythm Confirmed by Robert HENLEY DO ([id number]) on 10/28/2024 9:48:18 PM Referred By: Electronically Signed By: Robert HENLEY DO Transcribed By: MUS Signed By Robert Henley DO 1 12/29/238 COMPLETE BLOOD COUNT AUTO DIFF Collected: 10/28/2024 6:54 PM Status: F Source: [facility] TYPE CODE TESTS RESULT OUT OF RANGE REFERENCE UNITS LAB WBC White Blood Count 19.8 High 3.8-11.6 10*3/uL LAB UNWBC Uncorrected WBC 19.8 High 3.8-11.6 10*3/uL LAB RBC Red Blood Count 5.74 High 3.60-5.00 10*6/u L LAB HGB Hemoglobin 16.5 High 11.8-15.4 g/dL LAB HCT Hematocrit 49.2 High 34.0-46.4 % LAB MCV Mean Corpuscular Volume 85.7 Normal 80-100 fL LAB MCH Mean Corpuscular Hemoglobin 28.7 Normal 24.7-34.3 pg LAB MCHC Mean Corpuscular HGB Conc 33.5 Normal 32.0-35.0 g/dL LAB RDW Red Cell Distribution Width 13.4 Normal 11.9-15.3 % LAB PLT Platelet Count 333 Normal 150-450 10*3/uL LAB MPV Mean Platelet Volume 8.4 Normal 6.3-10.7 fL LAB MDW Monocyte Distribution Width 16.96 Normal 0.00-20.00 % LAB NE% Neutrophils % (Auto) 78.1 . % LAB LY% Lymphocytes % (Auto) 14.7 . % LAB MO% Monocytes % (Auto) 5.9 . % LAB EO% Eosinophils % (Auto) 0.6 . % LAB BA% Basophils % (Auto) 0.7 . % LAB NRBC% NRBC% 0.1 Normal 0-0.5 /100{WBC } LAB NE# Neutrophils # (Auto) 15.5 High 1.8-7.7 10*3/uL LAB LY# Lymphocytes # (Auto) 2.9 Normal 1.00-4.8 10*3/uL LAB MO# Monocytes # (Auto) 1.2 High 0.0-0.8 10*3/uL LAB EO# Eosinophils # (Auto) 0.1 Normal 0.0-0.45 10*3/uL LAB BA# Basophils # (Auto) 0.1 Normal 0.0-0.2 10*3/uL Result Comment: PERFORMED BY : [place] [address] PATHOLOGIST HRIS MANAGER IDANIA GODOY M.D. Performed By: #### HEPATIC, CBC, LIPASE, BMP #### [address] HEPATIC PANEL Collected: 10/28/2024 6:54 PM Status: F Source: [facility] TYPE CODE TESTS RESULT OUT OF RANGE REFERENCE UNITS LAB TP Total Protein 8.9 Normal 6.4-8.9 g/dL LAB ALB Albumin Level 5.4 Normal 3.5-5.7 g/dL LAB GLOB Globulin 3.5 g/dL LAB AGRATIO Albumin/Globulin Ratio 1.5 LAB BILIT Bilirubin,Total 1.1 High 0.3-1.0 mg/dL LAB BILID Bilirubin,Direct 0.20 High 0.03-0.18 mg/dL LAB BILII Bilirubin,Indirect 0.9 mg/dL LAB AST Aspartate Amino Transferase 30 Normal 13-39 U/L LAB ALT Alanine Aminotransferase 48 Normal 7-52 U/L LAB ALP Alkaline Phosphatase 78 Normal 34-104 U/L Performed By: #### HEPATIC, CBC, LIPASE, BMP #### [facility] [address] [id number] [facility] BASIC METABOLIC PANEL Collected: 10/28/2024 6:54 PM Status: F Source: [facility] TYPE CODE TESTS RESULT OUT OF RANGE REFERENCE UNITS LAB GLU Glucose 91 Normal 70-100 mg/dL Result Comment: Random Gluco se Reference Range is dependent on time and content of last meal. Glucose of more than 200 mg/dL in a nonstressed, ambulatory subject supports the diagnosis of Diabetes Mellitus. ADA recommended reference range LAB BUN Blood Urea Nitrogen 21 Normal 7-25 mg/dL LAB CREATT Creatinine 0.91 Normal 0.60-1.20 mg/dL LAB GFReNR Estimated GFR >60.0 mL/Min LAB NA Sodium 137 Normal 136-145 mmol/L LAB K Potassium 2.8 Low Off Scale 3.5-5.1 mmol/L Result Comment: Critical Res ult Called to and read back by: MATT BUSH at: 10/28/2024 19:29:56 by:[id number] LAB CL Chloride 94 Low 98-107 mmol/L LAB CO2 Carbon Dioxide 26.3 Normal 21.0-31.0 mmol/L LAB GAP Anion Gap 19.5 High 6.0-15.0 meq/L LAB CA Calcium 10.4 High 8.6-10.3 mg/dL LAB CRCLPHA Creatinine Clr Calc Pharmacy 104.62 Performed By: #### HEPATIC, CBC, LIPASE, BMP #### [facility] [address] [place] [address] [facility] LIPASE Collected: 12/01/202 4 6:54 PM Status: F Source: [facility] TYPE CODE TESTS RESULT OUT OF RANGE REFERENCE UNITS LAB LIPASE Lipase 19.0 Normal 11.0-82.0 U/L Result Comment: PERFORMED BY : [place] [address] PATHOLOGIST [employer] MANAGER IDANIA GODOY M.D. Performed By: #### HEPATIC, CBC, LIPASE, BMP #### [address] ALLERGIES DATE TYPE / CODE NAME / CODE REACTION SEVERITY SOURCE [id number](SNOMED CT) Haldol facial droop [facility] [id number](SNOMED CT) Reglan Unknown [facility] ENCOUNTERS ADMIT/DISCHARGE ACCOUNT NUMBER ADMITTING ENCOUNTER CLASS LOCATION SOURCE 08/22/2025/ 5 [id number] [facility] [id number]: [id number] [facility] 08/22/2025 [id number] Emergency FTMCBuilding: EDRoom: ED-08Bed: CD:[id number] [facility] 08/22/2025 [id number] Emergency FTMCBuilding: EDRoom: ED-08Bed: CD:[id number] [facility] 05/06/2025/ 5 [id number] [facility]/04/[facility]25/ 5 [id number] Jasmeet [facility]ahl [facility] 01/23/2025/ 5 [id number] Makayla Monk [facility] 01/16/2025 [id number] Emergency FTMCBuilding: EDRoom: ED-14Bed: [id number] [facility] 01/16/2025/ 5 [id number] Emergency FTMCBuilding: EDRoom: ED-14Bed: CD:[id number] [facility] 10/28/2024/ [id number] [address] [facility] PAYERS ENCOUNTER GUARANTOR PAYER SUBSCRIBER [employer]OURCE 08/22/2025 CORAL FERGUSONOB: E MAIN STTel: (HP) Primary Insurance:CARESOURCEPo licy Number: [id number] Date:5526-11-27PZ [address] [address]UE: [facility] 08/22/2025 DIXMONT WARRENDOB: E MAIN STTel: (HP) Primary Insurance:CARESOURCEPo licy Number: [id number] Date:8099-02-78EP [address] [address]NN: [facility] 08/22/2025 CORAL WARRENDOB: E MAIN STTel: (HP) Primary Insurance:CARESOURCEPo licy Number: [id number] Date:2563-59-45TH [address] [address]CJ: [facility] 05/06/2025 Coral [address] [place] [address]Opa: (HP) Primary Insurance:Self PayPolicy Number: Effective Date:2025-05-06 [facility] Coral [address] [place] [address]Ifz: (HP) Primary Insurance:Self PayPolicy Number: Effective Date:2025-05-04 [facility] 01/23/2025 Coral [address] [place] [address]Uip: (HP) Primary Insurance:Self PayPolicy Number: Effective Date:2025-01-23 [facility] 01/16/2025 CORAL WARRENDOB: E MAIN STTel: (HP) Primary Insurance:CARESOURCEPo licy Number: [id number] Date:[id number] [address]PV: [facility] 01/16/2025 CORAL WARRENDOB: E MAIN STTel: (HP) Primary Insurance:CARESOURCEPo licy Number: [id number] Date:[id number] [address]AP: [facility] 10/28/2024 [place] [address] [place] [address]Ivl: (HP) Primary Insurance:Caresource MedicaidPolicy Number: [id number] Date:6098-01-79Sqz[address] [address]QL: Coral A [facility]enD[id number] [place] [address]Itn: (HP) [facility] 10/28/2024 Secondary Insurance:Self PayPolicy Number: Effective Date:2024-10-28 [facility]
[2025-08-26 15:57] VITALS: BP 131/92; PULSE 72; TEMP 37.1; O2SAT 98; BMI 36.6
--- NOTE | 2025-08-26 16:10 | US_ITS ---
The [address] [address] Patient Name: PILI SEGURA MRN: [id number] date: 2005 Sex: F Assigned Patient Location: ER Current Patient Location: ED.MAIN Accession/Order Number: [id number] Exam Date: 08/26/2025 17:20 Report Date: 08/26/2025 18:44 At the request of: LUISA HOFFMAN DO Procedure: US OB transvaginal First trimester ultrasound HISTORY: Nausea and vomiting. Intrauterine sac visualized. Suspected yolk sac seen. pole or cardiac activity not visualized. Uterus normal and anteverted. Right ovary measures 2.5 x 1.4 x 1.6 cm. Left ovary measures 2.5 x 1.3 x 1.5 cm. Adequate color flow. Cervical length 3.9 cm. The cervical os is closed. Intrauterine sac measurement would suggest a gestation of 5 weeks 5 days with estimated delivery 04/23/2026. No adnexal mass. No free fluid. US/US OB transvaginal IMPRESSION: Suspected findings of early intrauterine gestation. pole or cardiac activity could not be visualized. Continued follow-up assessment with follow-up ultrasound and/or serial beta hCG levels recommended. No adnexal mass. No free fluid. Impression dictated by: Floyd Goldsmith M.D. 08/26/2025 6:44 PM Dictation Location: [place] [address] Electronically authenticated by: [id number] Y Date: 08/26/2025 18:44
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
[2025-08-26] MEDS: DEXTROSE 5 % IN WATER 1,000 ML 100 ML IV (16:46)
[2025-08-26] MEDS: ACETAMINOPHEN 500 MG TABLET 1000 MG PO (16:46)
[2025-08-26 17:07] LABS: Hematocrit 51.1 % (36.0-48.0); Hemoglobin 17.9 g/dL (12.0-16.0); Immature Granulocytes Abs Auto 0.16 10^3/uL (0.00-0.03); Immature Granulocytes Pct Auto 0.8 % (0.0-0.5); Lymphocytes Absolute Auto 3.5 10^3/uL (1.2-3.8); Mean Corpuscular HGB Conc 35.0 g/dL (29.9-35.2); Mean Corpuscular Hemoglobin 29.7 pg (26.7-34.0); Mean Corpuscular Volume 84.7 fL (81.0-99.0); Platelet Count 340 10^3/uL (150-450); Red Blood Count 6.03 10^6/uL (4.20-5.40); White Blood Count 21.0 10^3/uL (4.0-11.0)
[2025-08-26 17:38] LABS: Alanine Aminotransferase 38 U/L (14-59); Albumin Globulin Ratio 1.1; Albumin Level 5.0 g/dL (3.4-5.0); Alkaline Phosphatase 86 U/L (46-116); Anion Gap 16.9; Aspartate Amino Transferase 25 U/L (15-37); Blood Urea Nitrogen 26.0 mg/dL (7.0-18.0); Calcium 10.1 mg/dL (8.5-10.1); Carbon Dioxide 32.6 mmol/L (21.0-32.0); Chloride 90 mmol/L (98-107); Estimated GFR (African America >60 (>=60 mL/min/1.73m^2); Estimated GFR (Non-African Ame >60 (>=60 mL/min/1.73m^2); Globulin 4.4 g/dL; Glucose 91 mg/dL (74-106); Sodium 137 mmol/L (136-145); Total Protein 9.4 g/dL (6.4-8.2)
[2025-08-26 17:40] LABS: Potassium 2.5 mmol/L (3.5-5.1)
--- NOTE | 2025-08-26 17:54 | ED_ITS ---
HPI HPI - General Adult General Chief complaint: Nausea/Vomiting/Diarrhea Stated complaint: NAUSEA, VOMITING, SEVERE BACK PAIN Time Seen by Provider: 08/26/25 15:49 Source: patient Mode of arrival: walk-in Limitations: no limitations History of Present Illness HPI narrative: Patient is a 20-year-old female presenting to the emergency department for evaluation of nausea and vomiting. Patient states she has been dealing with persistent nausea and vomiting for a long time now. She states she has actually had upper and lower GI scopes, which were normal. She states she used to smoke marijuana, but has quit 2 weeks ago. She is currently 5 to 6 weeks by home test/dates. She has not had an ultrasound for this . She states she has a hard time keeping down food/liquid because of the vomiting. She is been taking Zofran and Phenergan suppositories with some effectiveness. She denies any vaginal bleeding or lower abdominal pain. She denies any chest pain or shortness of breath. No fevers or chills. Related Data Home Medications ?Medication ?Instructions ?Recorded ?Confirmed xslwyfckhv-bdabhnsnyhqlq-fyuhydlx cap 07/14/25 50 mg-300 mg-40 mg capsule ondansetron 4 mg disintegrating mg 08/26/25 tablet promethazine 25 mg rectal mg VT 08/26/25 suppository Allergies Allergy/AdvReac Type Severity Reaction Status Date / Time metoclopramide (From Reglan) AdvReac Intermediate facial Verified 08/26/25 16:00 drooping Opioid HPI Opioid Management Most Recent Opioid Data: Last Pain Scale 8 Today, 17:01 Last MAR Pain Assessment Today, 16:46 Last ORT Total Score 5 05/03/25, 14:33 Last ORT Risk Category Moderate Risk 05/03/25, 14:33 Ur Phencyclidine Scrn, (NEGATIVE) Negative , 06:20 Review of Systems ROS Status of ROS 10 or more systems reviewed and unremark able except as noted in history and below [facility] Medical History (Updated 08/23/25 @ 22:52 by Drew Steinberg MD) Marijuana use ?F12.90 - Cannabis use, unspecified, uncomplicated (ICD-10) Asthma ?J45.909 - Unspecified asthma, uncomplicated (ICD-10) Leukocytosis ?D72.829 - Elevated white blood cell count, unspecified (ICD-10) Bipolar 1 disorder ?F31.9 - Bipolar disorder, unspecified (ICD-10) Migraine ?G43.909 - Migraine, unspecified, not intractable, without status migrainosus (ICD-10) POTS (postural orthostatic tachycardia syndrome) ?G90.A - Postural orthostatic tachycardia syndrome [POTS] (ICD-10) Cyclic vomiting syndrome ?R11.15 - Cyclical vomiting syndrome unrelated to migraine (ICD-10) Cyclic vomiting syndrome ?R11.15 - Cyclical vomiting syndrome unrelated to migraine (ICD-10) Fall ?W19.XXXA - Unspecified fall, initial encounter (ICD-10) Fracture of tibial plateau ?S82.143A - Displaced bicondylar fracture of unspecified tibia, initial encounter for closed fracture (ICD-10) Surgical History History of appendectomy ?Z90.49 - Acquired absence of other specified parts of digestive tract (ICD- 10) Family History Father Family history of stroke Family history of diabetes mellitus Family history of cancer Family history of hypertension Family history of CHF (congestive heart failure) Grandfather Family history of stroke Grandmother Family history of myocardial infarction Mother Family history of diabetes mellitus Family history of cancer Social History (Updated 05/03/25 @ 14:23 by Emili Benitez) Within the past year, how often did you have a drink containing alcohol: never Score interpretation: A score less than 3 is consistent with normal alcohol consumption. Smoking status: Current every day smoker Non-prescribed substance use: cannabis (any form) Previous occupational history: [employer] Highest level of school completed/degree received: high school graduate Little interest or pleasure in doing things: not at all Feeling down, depressed, or hopeless: not at all Feel stressed/tense/nervous/anxious/difficulty sleeping: not at all Do you think of yourself as: straight/heterosexual Gender Identity: female Exam Narrative Exam Narrative: CONSTITUTIONAL: Patient appears fatigued, but nontoxic, answering questions following commands properly. SKIN: Was warm and dry. EYES: Sclerae white. EARS, NOSE, THROAT: Tacky mucous membranes RESPIRATORY: Clear to auscultation bilaterally, no wheezes, crackles, or stridor, no use of accessory muscles CARDIOVASCULAR: Normal rate and regular rhythm. There is no S3, S4, murmur, rub. GASTROINTESTINAL: Abdomen is soft, nontender, and nondistended. No rebound tenderness or guarding. MUSCULOSKELETAL: No peripheral edema. NEUROLOGIC: Patient is awake and alert. Facies were symmetrical. Constitutional Vital Signs, click to edit/add: Last Vital Signs Temp 98.7 F 08/26/25 15:57 Pulse 72 08/26/25 15:57 Resp 18 08/26/25 15:57 BP 131/92 H 08/26/25 15:57 Pulse Ox 98 08/26/25 15:57 O2 Del Method Room Air 08/26/25 15:57 Course Vital Signs Vital signs: Vital Signs Temperature 98.7 F 08/26/25 15:57 Pulse Rate 72 08/26/25 15:57 Respiratory Rate 18 08/26/25 15:57 Blood Pressure 131/92 H 08/26/25 15:57 Pulse Oximetry 98 08/26/25 15:57 Oxygen Delivery Method Room Air 08/26/25 15:57 Temperature 98.7 F 08/26/25 15:57 Pulse Rate 72 08/26/25 15:57 Respiratory Rate 18 08/26/25 15:57 Blood Pressure 131/92 H 08/26/25 15:57 Pulse Oximetry 98 08/26/25 15:57 Oxygen Delivery Method Room Air 08/26/25 15:57 Medical Decision Making MDM Narrative Medical decision making narrative: Patient is a 20-year-old female, approximately 5 to 6 weeks by dates, presenting to the emergency department for nausea and vomiting. Vital signs arrival are within normal limits. She is afebrile and hemodynamically stable. Examination as noted above. Differential diagnose include cyclical vomiting syndrome, CHS, related vomiting/nausea, or other electrolyte/metabolic derangement. Patient's exam is not consistent with surgical etiologies of abdominal pain such as appendicitis, cholecystitis, or perforated viscus. IV is established and laboratory studies were obtained. TVUS was ordered to confirm IUP as she has not yet had an ultrasound for this . She was given IV Zofran, 1 L bolus of D5 LR, and oral Tylenol for symptomatic treatment. Laboratory studies were significant for hypokalemia to 2.5. This was replaced with 40 mEq of oral potassium chloride. No other significant electrolyte or metabolic derangement. No evidence of acute renal injury. Beta-hCG was appropriately elevated to 11,000, up from 2600 from 4 days ago. There is a leukocytosis, likely from demargination from her persistent vomiting. No anemia. TVUS independently reviewed and interpreted by myself and radiology demonstrated suspected findings of early intrauterine gestation. pole or cardiac activity could not be visualized. Continued follow-up assessment with follow-up ultrasound and/or serial beta hCG levels recommended. No adnexal mass. No free fluid. My shift is now coming to an end. At the time of sign-out, reevaluation is pending after additional dose of IV antiemetics with Phenergan. If the patient feels symptomatically improved, I do believe she should be stable for discharge home. FINAL IMPRESSION: #Acute nausea and vomiting in the setting of first trimester #Acute hypokalemia DISPOSITION: Signed out to oncoming ED physician CONDITION: Good Medical Records Medical records reviewed: Yes I reviewed the patient's medical records Lab Data Lab results reviewed: Yes I reviewed the patient's lab results Labs: Lab Results 08/26/25 Range/Units 16:43 WBC 21.0 H (4.0-11.0) 10^3/uL RBC 6.03 H (4.20-5.40) 10^6/uL Hgb 17.9 H (12.0-16.0) g/dL Hct 51.1 H (36.0-48.0) % MCV 84.7 (81.0-99.0) fL MCH 29.7 (26.7-34.0) pg MCHC 35.0 (29.9-35.2) g/dL RDW 12.5 (11.0-15.0) % Plt Count 340 (150-450) 10^3/uL MPV 10.6 (9.5-13.5) fL Neut % (Auto) 75.0 (43.0-75.0) % Lymph % (Auto) 16.4 L (20.5-60.0) % [place] % (Auto) 6.9 (1.7-12.0) % Eos % (Auto) 0.5 L (0.9-7.0) % Baso % (Auto) 0.4 (0.2-2.0) % Neut # (Auto) 15.7 H (1.4-6.5) 10^3/uL Lymph # (Auto) 3.5 (1.2-3.8) 10^3/uL Johnson # (Auto) 1.5 H (0.3-0.8) 10^3/uL Eos # (Auto) 0.1 (0.0-0.7) 10^3/uL Baso # (Auto) 0.1 (0.0-0.1) 10^3/uL Abs Immat Gran (auto) 0.16 H (0.00-0.03) 10^3/uL Imm/Tot Granulo (auto) 0.8 H (0.0-0.5) % Sodium 137 (136-145) mmol/L Potassium 2.5 L* (3.5-5.1) mmol/L Chloride 90 L (98-107) mmol/L Carbon Dioxide 32.6 H (21.0-32.0) mmol/L Anion Gap 16.9 BUN 26.0 H (7.0-18.0) mg/dL Creatinine 0.94 (0.55-1.02) mg/dL Est GFR ( Amer) >60 (>=60 mL/min/1.73m^2) Est GFR (Non-Af Amer) >60 (>=60 mL/min/1.73m^2) BUN/Creatinine Ratio 27.7 Glucose 91 (74-106) mg/dL Calcium 10.1 (8.5-10.1) mg/dL Total Bilirubin 1.3 H (0.2-1.0) mg/dL AST 25 (15-37) U/L ALT 38 (14-59) U/L Alkaline Phosphatase 86 (46-116) U/L Total Protein 9.4 H (6.4-8.2) g/dL Albumin 5.0 (3.4-5.0) g/dL Globulin 4.4 g/dL Albumin/Globulin Ratio 1.1 HCG, Quant 54655 mIU/mL Imaging Data TVUS: Attestation: I personally reviewed and interpreted this imaging study as follows: Radiologist's impression: ITS Impressions Transvaginal US 08/26/25 16:10 IMPRESSION: Suspected findings of early intrauterine gestation. pole or cardiac activity could not be visualized. Continued follow-up assessment with follow-up ultrasound and/or serial beta hCG levels recommended. No adnexal mass. No free fluid. Impression dictated by: Floyd Goldsmith M.D. 08/26/2025 6:44 PM Dictation Location: [employer] Electronically authenticated by: [id number] Y Date: 08/26/2025 18:44 Discharge Plan Discharge Patient Disposition: Still a Patient
[2025-08-26] MEDS: POTASSIUM CHLORIDE 10 MEQ ER TABLET 40 MEQ PO (18:26)
--- NOTE | 2025-08-26 19:08 | PC.NURSE ---
i waked into this patient's room to find this patient awake and alert lying prone on the bed looking at her cell phone. i informed this patient waiting on pharmacy to verify your medication this patient voices no concerns, or needs and shows no signs of distress
[2025-08-26] MEDS: PROMETHAZINE HCL 25 MG in 0.9 % SODIUM CHLORIDE 50 ML 204 MG IV (19:22)
--- NOTE | 2025-08-26 20:35 | ED.NAVMDI1 ---
HPI - Nausea/Vomiting/Diarrhea General Chief complaint: Nausea/Vomiting/Diarrhea Stated complaint: NAUSEA, VOMITING, SEVERE BACK PAIN Time Seen by Provider: 08/26/25 15:49 Source: patient Mode of arrival: walk-in Limitations: no limitations History of Present Illness HPI Narrative: This 20-year-old female with a history of cyclic vomiting and POTS who was recently diagnosed with an early and has been seen multiple times in this emergency department and also recently at [facility] was signed out to me at shift change pending reevaluation for nausea and vomiting. Her ultrasound shows an intrauterine which is early in nature without cardiac activity. Routine labs reviewed. Her white count today is 21 likely related to demargination. Hemoglobin is concentrated at 17.9. Her beta quant HCG is now 11,000., She has a normal BUN and creatinine. Potassium is low at 2.5. She is medicated with Zofran, Phenergan and D5. Her kidney function is normal. She was seen and evaluated. She states she still feels tired and nauseated and requesting additional dose of Zofran. Her mother request that she be admitted. I did speak to the hospitalist who does not feel comfortable admitting her due to her early . He feels that she would be better off admitted to the [facility] service. I did explain that her is documented and not viable at this time making it less likely that [facility] would be wanting to be involved. This was discussed with the patient and her family who verbalized understanding. She will be given normal saline bolus and reevaluated. She is not actively vomiting in the emergency department and hemodynamically stable at this time. After liter of normal saline she requested to be discharged home. She has prescriptions for potassium and Zofran from this provider earlier this week and also [facility] earlier this week. She states she has an appointment with her HAND BENDER tomorrow. She was encouraged to keep that appointment. Related Data Home Medications ?Medication ?Instructions ?Recorded ?Confirmed agtaqozxzj-sdkqtuqssvezu-vbziompa cap 07/14/25 50 mg-300 mg-40 mg capsule ondansetron 4 mg disintegrating mg 08/26/25 tablet promethazine 25 mg rectal mg UT 08/26/25 suppository Allergies Allergy/AdvReac Type Severity Reaction Status Date / Time metoclopramide (From Reglan) AdvReac Intermediate facial Verified 08/26/25 16:00 drooping [facility] Medical History (Updated 08/26/25 @ 22:34 by Monet Donovan MD) Marijuana use ?F12.90 - Cannabis use, unspecified, uncomplicated (ICD-10) Asthma ?J45.909 - Unspecified asthma, uncomplicated (ICD-10) Leukocytosis ?D72.829 - Elevated white blood cell count, unspecified (ICD-10) Bipolar 1 disorder ?F31.9 - Bipolar disorder, unspecified (ICD-10) Migraine ?G43.909 - Migraine, unspecified, not intractable, without status migrainosus (ICD-10) POTS (postural orthostatic tachycardia syndrome) ?G90.A - Postural orthostatic tachycardia syndrome [POTS] (ICD-10) Cyclic vomiting syndrome ?R11.15 - Cyclical vomiting syndrome unrelated to migraine (ICD-10) Cyclic vomiting syndrome ?R11.15 - Cyclical vomiting syndrome unrelated to migraine (ICD-10) Fall ?W19.XXXA - Unspecified fall, initial encounter (ICD-10) Fracture of tibial plateau ?S82.143A - Displaced bicondylar fracture of unspecified tibia, initial encounter for closed fracture (ICD-10) Surgical History History of appendectomy ?Z90.49 - Acquired absence of other specified parts of digestive tract (ICD-10) Family History Father Family history of stroke Family history of diabetes mellitus Family history of cancer Family history of hypertension Family history of CHF (congestive heart failure) Grandfather Family history of stroke Grandmother Family history of myocardial infarction Mother Family history of diabetes mellitus Family history of cancer Social History (Updated 05/03/25 @ 14:23 by Emili Benitez) Within the past year, how often did you have a drink containing alcohol: never Score interpretation: A score less than 3 is consistent with normal alcohol consumption. Smoking status: Current every day smoker Non-prescribed substance use: cannabis (any form) Previous occupational history: [employer] Highest level of school completed/degree received: high school graduate Little interest or pleasure in doing things: not at all Feeling down, depressed, or hopeless: not at all Feel stressed/tense/nervous/anxious/difficulty sleeping: not at all Do you think of yourself as: straight/heterosexual Gender Identity: female Exam Constitutional Vital Signs, click to edit/add: Last Vital Signs Temp 98.7 F 08/26/25 15:57 Pulse 72 08/26/25 15:57 Resp 18 08/26/25 15:57 BP 131/92 H 08/26/25 15:57 Pulse Ox 98 08/26/25 15:57 O2 Del Method Room Air 08/26/25 15:57 Course Vital Signs Vital signs: Vital Signs Temperature 98.7 F 08/26/25 15:57 Pulse Rate 72 08/26/25 15:57 Respiratory Rate 18 08/26/25 15:57 Blood Pressure 131/92 H 08/26/25 15:57 Pulse Oximetry 98 08/26/25 15:57 Oxygen Delivery Method Room Air 08/26/25 15:57 Temperature 98.7 F 08/26/25 15:57 Pulse Rate 72 08/26/25 15:57 Respiratory Rate 18 08/26/25 15:57 Blood Pressure 131/92 H 08/26/25 15:57 Pulse Oximetry 98 08/26/25 15:57 Oxygen Delivery Method Room Air 08/26/25 15:57 MDM - Nausea/Vomiting/Diarrhea Lab Data Labs: Lab Results 08/26/25 Range/Units 16:43 WBC 21.0 H (4.0-11.0) 10^3/uL RBC 6.03 H (4.20-5.40) 10^6/uL Hgb 17.9 H (12.0-16.0) g/dL Hct 51.1 H (36.0-48.0) % MCV 84.7 (81.0-99.0) fL MCH 29.7 (26.7-34.0) pg MCHC 35.0 (29.9-35.2) g/dL RDW 12.5 (11.0-15.0) % Plt Count 340 (150-450) 10^3/uL MPV 10.6 (9.5-13.5) fL Neut % (Auto) 75.0 (43.0-75.0) % Lymph % (Auto) 16.4 L (20.5-60.0) % [place] % (Auto) 6.9 (1.7-12.0) % Eos % (Auto) 0.5 L (0.9-7.0) % Baso % (Auto) 0.4 (0.2-2.0) % Neut # (Auto) 15.7 H (1.4-6.5) 10^3/uL Lymph # (Auto) 3.5 (1.2-3.8) 10^3/uL [place] # (Auto) 1.5 H (0.3-0.8) 10^3/uL Eos # (Auto) 0.1 (0.0-0.7) 10^3/uL Baso # (Auto) 0.1 (0.0-0.1) 10^3/uL Abs Immat Gran (auto) 0.16 H (0.00-0.03) 10^3/uL Imm/Tot Granulo (auto) 0.8 H (0.0-0.5) % Sodium 137 (136-145) mmol/L Potassium 2.5 L* (3.5-5.1) mmol/L Chloride 90 L (98-107) mmol/L Carbon Dioxide 32.6 H (21.0-32.0) mmol/L Anion Gap 16.9 BUN 26.0 H (7.0-18.0) mg/dL Creatinine 0.94 (0.55-1.02) mg/dL Est GFR ( Amer) >60 (>=60 mL/min/1.73m^2) Est GFR (Non-Af Amer) >60 (>=60 mL/min/1.73m^2) BUN/Creatinine Ratio 27.7 Glucose 91 (74-106) mg/dL Calcium 10.1 (8.5-10.1) mg/dL Total Bilirubin 1.3 H (0.2-1.0) mg/dL AST 25 (15-37) U/L ALT 38 (14-59) U/L Alkaline Phosphatase 86 (46-116) U/L Total Protein 9.4 H (6.4-8.2) g/dL Albumin 5.0 (3.4-5.0) g/dL Globulin 4.4 g/dL Albumin/Globulin Ratio 1.1 HCG, Quant 39812 mIU/mL Imaging Data US - abdomen: Radiologist's impression: ITS Impressions Transvaginal US 08/26/25 16:10 IMPRESSION: Suspected findings of early intrauterine gestation. pole or cardiac activity could not be visualized. Continued follow-up assessment with follow-up ultrasound and/or serial beta hCG levels recommended. No adnexal mass. No free fluid. Impression dictated by: Floyd Goldsmith M.D. 08/26/2025 6:44 PM Dictation Location: [employer] Electronically authenticated by: [id number] Y Date: 08/26/2025 18:44 Discharge Plan Discharge Chief Complaint: Nausea/Vomiting/Diarrhea Clinical Impression: Acute hypokalemia, Cyclical vomiting, Early stage of Patient Disposition: Home, Self-Care Time of Disposition Decision: 22:34 Condition: Good Prescriptions / Home Meds: No Action crezfzaoyo-ebdowbcqhzzbv-hbvy 50-300-40 mg capsule promethazine 25 mg suppository UT ondansetron 4 mg tablet,disintegrating Print Language: Samoan Referrals: [facility] [Primary Care Provider] - 1 week
[2025-08-26] MEDS: 0.9 % SODIUM CHLORIDE 1,000 ML 1000 ML IV (21:07)
[2025-08-26 23:01] VITALS: BP 149/99; PULSE 89; TEMP 36.9; O2SAT 100
--- NOTE | 2025-08-26 23:09 | PC.NURSE ---
i gave this patient verbal and written discharge orders along with 2 Rx and this patient voices yes to understanding these. at time of discharge this patient and her father voices no concerns, needs and this patient shows no signs of distress
== END 2025-08-26 23:13 | disposition home or self-care (01) ==
PROVIDERS: Student in an Organized Health Care Education/Training Program; Emergency Provider Emergency Medicine
DX: O21.9 Vomiting of pregnancy, unspecified (principal); O99.281 Endocrine, nutritional and metabolic diseases complicating pregnancy, first trimester; E87.6 Hypokalemia; O99.331 Smoking (tobacco) complicating pregnancy, first trimester; F17.200 Nicotine dependence, unspecified, uncomplicated; O99.411 Diseases of the circulatory system complicating pregnancy, first trimester; Z3A.01 Less than 8 weeks gestation of pregnancy; G90.A Postural orthostatic tachycardia syndrome [POTS]
CPT/HCPCS: 36415; 76817; 80053; 84702; 85025; 96361; 96365; 96375; 96376; 99285; J2405; J2550

== ENCOUNTER 2025-09-20 13:48 | Outpatient (OUT) | payer OTHER, SELFPAY ==
--- OUTSIDE RECORDS SUMMARY | 2024-04-30 06:30 | XMS_ITS ---
Author Organization [facility] Address [address] [place] [address] Care Team Providers Care Crochet Machine Operator Name Role Phone Modesta Lira Primary Care Provider Kelsey Espino Unavailable [phone] Divina Bronson Unavailable [phone] REASON FOR VISIT PROPHY. BW'S Social History Sex Assigned At : Social History Observation Description Sex Assigned At Female Encounters Encounter Location Date Provider Diagnosis [address] [facility] [place] [address] 04/30/2024 Divina Bronson Plan Of Treatment No Information Progress Notes * PILI SEGURA ADOB: [birth year] (20 yo F)Acc No.[id number]:04/30/2024 Patient:?PILI SEGURA Hoa :?Divina HarmonDOB:2005???Age:19 Y???Sex: FemaleDate:04/30/2024hone:[phone]:[facility] [facility], [id number]:Modesta Lira Subjective: * Chief Complaints: * P ROPHY. BW'S Billing Information: * Procedure Codes: * Electronic signature of Divina Bronson on 09/20/2025 at 01:51 PM EDTSign off status: Pending * Provider: Trinidad Hayes Date: 0 04/30/2024 Generated for Printing/Faxing/eTransmitting on:?09/20/2025 01:51 PM EDT
--- OUTSIDE RECORDS SUMMARY | 2025-01-30 09:00 | XMS_ITS ---
Author Organization [employer] Address [address] [place] [address] Care Team Providers Care Director Cardiac Name Role Phone Modesta Lira Primary Care Provider Kelsey Espino Unavailable [phone] Modesta Chand Unavailable REASON FOR VISIT Pots disease, vomiting Social History Sex Assigned At : Social History Observation Description Sex Assigned At Female Encounters Encounter Location Date Provider Diagnosis [facility] [address] [place] [address] 01/30/2025 Modesta Chand Plan Of Treatment No Information Progress Notes * PILI SEGURA ADOB: [birth year] (20 yo F)Acc No.[id number]:01/30/2025 Progress Note Patient: PILI PENALOZA Hoa :?Modesta Chand CNPDOB:2005???Age:20 Y ???Sex:FemaleDate:01/30/2025Phone:[phone]:[facility] [place], [place]-[address]Pcp:Modesta Lira Subjective: * Chief Complaints: * P ots disease, vomiting * Electronic signature of Modesta Chand CNP on 09/20/2025 at 01:52 PM EDT Sign off status: Pending * Provider: Jesus Chand CNP Date: 0 01/30/2025 Generated for Printing/Faxing/eTransmitting on:?09/20/2025 01:52 PM EDT
--- OUTSIDE RECORDS SUMMARY | 2025-05-22 05:00 | XMS_ITS ---
Author Organization [employer] es Address [address] [place] [address] Care Team Providers Care Keno Writer Name Role Phone Modesta Lira Primary Care Provider Kelsey Espino [phone] REASON FOR VISIT nexplanon removal Social History Sex Assigned At : Social History Observation Description Sex Assigned At Female Encounters Encounter Location Date Provider [address] [place] [address] 05/22/2025 Kelsey Espino Plan Of Treatment No Information Progress Notes * PILI SEGURA ADOB: [birth year] (20 yo F)Acc No.[id number]:05/22/2025 progress note Patient: PILI PENALOZA A :?Kelsey ZhouOB:2005???Age:20 Y???Sex: FemaleDate:05/22/2025Phone:[phone]:[address] [facility] [place], [place]Wxs:Modesta Lira Subjective: * Chief Complaints: * N explanon removal Billing Information: * Procedure Codes: * Electronic signature of Kelsey Espino NP on 09/20/2025 at 01:51 PM EDTSign off status: Pending * Provider: Raf Espino Date: 0 05/22/2025 Generated for Printing/Faxing/eTransmitting on:?09/20/2025 01:51 PM EDT
--- OUTSIDE RECORDS SUMMARY | 2025-09-20 13:52 | XMS_ITS | Patient Health Record ---
Author Organization [employer] [facility] Jam[employer] es Address [address] [place] [address] Care Team Providers Care Sash Clamp Operator Name Role Phone PankajModesta Primary Care Provider Kelsey Espino Unavailable [phone] Modesta Chand Unavailable [phone] Allergies Allergen (clinical drug ingredient) Drug/Non Drug Allergy documented on EMR Reaction Allergy Type Onset Date Status metoclopramide Reglan Facial Droop Drug Allergy Active Results Component Value Reference Range Notes Urine Culture Reviewed date:08/30/2025 10:44:27 AM Interpretation: Performing Lab:, [facility], [address], [place] Notes/Report: 2GP Reviewed date:08/28/2025 02:48:29 PM Interpretation:glucose-negative, Protein-1+ Performing Lab: Notes/Report: glucose-negative, Protein-1+ Glucose + Protein glucose-negative, Protein-1+ US 1st Trimester Reviewed date:08/27/2025 01:34:03 PM Interpretation:see attached Performing Lab: Notes/Report: see attachedIGPAptima HPV,CtNg Age Gdln Reviewed date:09/04/2025 01:13:01 PM Interpretation: Performing Lab:, [facility], [address] [place] Notes/Report: Viv Birmingham MD, [address] [place], [place] [address] [address] 02 [facility] Performed at: <-Panic Low,>-Panic High,A-Abnormal,AA-Critical Abnormal L-Low Normal,H-High Normal,LL-Alert Low,HH-Alert High FLAG LEGEND: result therefore, no HPV testing was performed. The HPV DNA reflex criteria were not met with this specimen . 02 the use of an image guided system. This liquid based ThinPrep(R) pap test was screened with Test Methodology: Note 02 occur. cancer. Both false-positive and false-negative reports do should not be used as the sole means of detecting cervical Viv Birmingham MD, uterine cervix. It is not a diagnostic procedure and [address] [place] [address] detection of premalignant and malignant conditions of the 01 =[facility] The Pap smear is a screening test designed to aid in the Performed at: Note: Note 02 . 02 <-Panic Low,>-Panic High,A-Abnormal,AA-Critical Abnormal Queta Lofton, Supervisory Alum Plant Supervisor (ASCP) L-Low Normal,H-High Normal,LL-Alert Low,HH-Alert High Performed by: 02 FLAG LEGEND: Vice President Medical Affairs: Viv Birmingham MD, Phone: [phone] Satisfactory for evaluation. No endocervical component is identified. [address] [facility] [place] [place] [id number] Specimen adequacy: 02 Age Adano ACOG Geeta... 21-24 01 Performed at: [facility] NEGATIVE FOR INTRAEPITHELIAL LESION OR MALIGNANCY. No. of containers..01 ThinPrep Vial Vice President Medical Affairs: Viv Birmingham MD, Phone: [phone] DIAGNOSIS: 02 Clinician Provided Cytology Information Specimen Comment: [id number] [address] [place], [place] [id number] , unspeci Performed at: =[facility] TESTS RESULT FLAG UNITS REF RANGE LAB TESTS RESULT FLAG UNITS REF RANGE LAB Reason for Exam Encounter for supervision of other normalIGP, Age GdlnNote.Pap IGNote.PAP Chlamydia NAANegativeNegativePAP GonococcusNegativeNegativeOB Urine Drug Screen (NO THC) Reviewed date:08/30/2025 08:38:47 AM Interpretation: Performing Lab:, [facility], [address], [place] Notes/Report: Reason for Exam Encounter for supervision of other normal , unspeciAmphetamine Screen,UrineNegativeNegativeBarbiturate Screen,UrineNegativeNegativeBenzodiazepines Screen,UrineNegativeNegativeCocaine Screen,UrineNegativeNegativeOpiate Screen,UrineNegativeNegativePhencyclidine Screen, UrineNegativeNegative These are unconfirmed results and should not be used for legal purposes. Drug Cut-Off Concentration: AMPH 1000 ng/mL NIKOLAS 200 ng/mL SHRAVAN 200 ng/mL COCM 300 ng/mL OP 300 ng/mL PCP 25 ng/mL Chlamydia/GC/Trich JANAK Reviewed date:09/02/2025 12:54:19 PM Interpretation: Performing Lab:, [facility], [address] Notes/Report: Reason for Exam Encounter for supervision of other normal , unspeci Specimen Comment: A duplicate report has been generated due to demographic Specimen Comment: updates.Chlamydia Trachomotis, NAANegativeNegativeNeisseria Gonorrhoeae, NAANegativeNegativeTrichomonas NAANegativeNegative Performed at: =[facility] [place], [place] [id number] Vice President Medical Affairs: Viv Birmingham MD, Phone: [phone] Reason For Referral No Information Medications Medication SIG (Take, Route, Frequency, Duration) Notes Start Date End Date Status traZODone HCl 100 MG Tablet 1/2 to 1 tab let at bedtime for sleep when needed Orally Once a day; Duration: 30 days 5ActiveZofran 4 MG Tablet1 tablet Orally twice a day (bid) as needed (prn); Duration: 10 daysPRNActivePromethazine HCl 25 MG Tablet1 tablet as needed Orally every 12 hrsprnActive Immunizations Vaccine Route Administration Date Status Comme nts HepA - Havrix (ped/adol 2 dose) IM Intramuscular 12/04/2020 Administered Influenza 3+ PRIVATEIM Kctsovyjivnsv39/07/2021AdministeredMeningococcal (MENACTRA)IM Bxnzklwtvtppt68/07/2021AdministeredMENINGOCOCCAL BIM Intramuscular 1Administered Social History Tobacco Use: Social History Observation Description Date Details (start date - stop date) Former Smoker NA - NA Sex Assigned At : Social History Observation Description Sex Assigned At Female Social History GeneralSocial InfoQuestionAnswerNotesTransition of Care:ER/UC/hospital since last office visit?NoSpecialist seen since last office visit?NoSubstance abuse/mental health issues of patient/familyPatient -DeniesAbility to understand healthcare/treatmentPatient:GoodCaregiver:GoodSexual Hx:Had sex in the last 12 months (vaginal, oral, or anal)?Yes? withMen only? Use protection?Yes?? How often?Most of the time? Prevention Strategies discussed:CondomsHave you ever had an STD?NoSocial/Support Concerns:Patient:YesBehaviors affecting healthPoor/Risky Behaviors:Denies-Communication Barrier:Language Barrier?:NoDrug/Alcohol:Social InfoQuestionAnswerNotesAUDIT-C (Standard)Did you have a drink containing alcohol in the past year?StNtwzht1PuvgwbvthgqaovHqkdqsldVlnfair Use:Social InfoQuestion AnswerNotesTobacco Control (Standard)Tobacco use:Former smoker? How long has it been since you last smoked?Less than 1 month Problems Problem Type SNOMED Code ICD Code Onset Dates Problem Status W/U Status Risk Notes Problem Severe mixed bipolar I disorder without psychotic features (15928213) Bipolar disorder, current episode mixed, severe, without psychotic features (F31.63) ActiveconfirmedProblemModerate recurrent major depression (97184806)Major depressive disorder, recurrent, moderate (F33.1)ActiveconfirmedProblemmigraine (disorder) (41970473)Migraines (G43.909)ActiveconfirmedProblemVitamin D deficiency (22226465)Vitamin D deficiency (E55.9)ActiveconfirmedProblem Amenorrhea (59745973)Amenorrhea (N91.2)ActiveconfirmedProblemPneumomediastinum (84250403)Pneumomediastinum (J98.2)ActiveconfirmedProblemDifficulty sleeping (305518940)Sleep difficulties (G47.9)ActiveconfirmedProblemInsomnia (443368031) Insomnia, unspecified type (G47.00)ActiveconfirmedProblemPosttraumatic stress disorder (65542446)PTSD (post-traumatic stress disorder) (F43.10)Activeconfirmed ProblemIntermenstrual bleeding - irregular (05940987)Menorrhagia with irregular cycle (N92.1)ActiveconfirmedProblemHistory of psychiatric disorder (518847282) History of posttraumatic stress disorder (PTSD) (Z86.59)ActiveconfirmedProblem Irregular periods (90130946)Irregular periods/menstrual cycles (N92.6)Active confirmedProblemSocial anxiety disorder (82194232)Social anxiety disorder (F40.10)ActiveconfirmedProblemMajor depression, single episode (31337607) Depression, acute (F32.9)ActiveconfirmedProblemPostural orthostatic tachycardia syndrome (disorder) (963982313)POTS (postural orthostatic tachycardia syndrome) (I49.8)Activeconfirmed Vital Signs Heart Rate 93 /min 08/21/2025 Dzihtkeskcb32 degrees Yyhthuadbx14/24/2025Respiratory Rate20 /min08/21/2025 Uqoktowr66 %08/21/2025lood pressure dcufyxzai33 mm Hg08/21/20259538Dxvkss22.5 in 08/21/2025lood pressure kxdagzrx478 mm Hg08/21/20253856Mvjljq704 lbs08/21/2025MI 35.99 kg/m208/21/2025 Encounters Encounter Location Date Provider Diagnosis [facility] [address] [place] [address] 09/03/2025 [facility] [place] [address]/ [address] [address]/11/2024[address] [place] [address]/06/2025[address] [place] [address]/[facility] [place] [address]/[facility] Amenorrhea N91.2 and Nausea and vomiting, unspecified vomiting type R11.2FSaint [facility] [place] [address]/Jennifer RichardsonPOTS (postural orthostatic tachycardia syndrome) I49.8 ; Nausea and vomiting, unspecified vomiting type R11.2 ; Migraines G43.909 ; Sleep difficulties G47.9 [address]87[address] [address] [place] [address]/Jennifer KearneyInsomnia, unspecified type G47.00 ; Hypokalemia E87.6 and Skin burn T30.0[address] [place] [address]/[facility] hospitaler for Nexplanon removal Z30.46 and control counseling Z30.9[facility] [address]/11/2024[facility] for supervision of other normal , unspecified trimester Z34.80 Assessments Encounter Date Diagnosis (ICD Code) Assessment Notes Treatment Notes Treatment Clinical Notes Section Notes 05/22/2025 Encounter for Nexplanon removal (ICD-10 - Z30.46) Discussed risks of procedure with patient which included but are not limited to bleeding, infection, difficulty with removal, scarring and nerve damage. Informed consent was obtained and scanned intothe chart.Patient was positioned supine with left arm flexed at the elbow and externally rotated sothat her hand was underneath her head. The implant was palpated. The site was cleaned with bedadineswabs and anesthetized with 2 mL of 1% [...] advised until conception is desired. Patient verbalized understanding.08/21/2025menorrhea (ICD-10 - N91.2)HCG lab orders given to patient. Discussed initiating vitamin. Patient unable to leave urine specimen at todays visit. Will call with results from labs to discuss estimated gestation. Discussed scheduling new OB visit next week to discuss [facility] care. Patient agreeable and verbalizes understanding.08/28/2025Encounter for supervision of other normal , unspecified trimester (ICD-10 - Z34.80)08/21/2025Nausea and vomiting, unspecified vomiting type (ICD-10 - R11.2)Discussed taking OTC B6, B12 daily and Unisom at bedtime to help with symtpoms. Discussed treatments for nausea including natalie trista, peppermint, sea band, etc. Discussed if unable to keep fluids down for > 12 hours to go to ER. Patient verbalizes understanding. 05/22/2025irth control counseling (ICD-10 - Z30.9)Discussed control options today in office. Pt declines and would like to use natural family pl anning at this time.01/25/2025POTS (postural orthostatic tachycardia syndrome) (ICD-10 - I49.8)Hx of POTS pt also has been having n/v and now some diarrhea. Pt has been to ER mult times for her complaints but starting to feel somewhat better. Note given to cover all of her days missed from jpb08dd through to today.01/25/2025Nausea and vomiting, unspecified vomiting type (ICD-10 - R11.2) Pt was kept in hospital for fluids and potassium replacement. Discharged with medication for nauseaand vomiting. Did have reported emesis end of visit when MA was in room x 1. Pt does have zofran athome and plans to take. Denies any further sensation to vomit at this time and did have labs ordered to recheck electrolytes, blood counts, etc. Pt agreeable. Instructed to increase intake of fluids such as Gatorade or Powerade to maintain electrolytes. Restand advance diet as tolerated. Informed that the appetite should return and the patient should start slowly as tolerated. Follow BRAT diet when start to advance. Follow up if not improving in next few days or worsening of symptoms. 05/13/2025Hypokalemia (ICD-10 - E87.6)CMP ordered and drawn today. Will call patient with abnormal results. Increase fluids slowly advance diet as tolerated. All questions and concerns addressed.05/13/2025Insomnia, unspecified type (ICD- 10 - G47.00)May restart Trazadone for sleep. Continue to refrain from marijuana. All questions and concerns addressed. Follow up in 3 months.05/13/2025Skin burn (ICD-10 - T30.0)Avoid allowing hot water on back. Instructed to use aloe and a moisturizing cream. Follow up if develop purulent drainage or pain from the burned area. All quesitons and concerns addressed.01/25/2025Migraines (ICD-10 - G43.909)Pt reports headache and requests Toradol shot. Given to pt by MA. Alicia yousif.01/25/2025Sleep difficulties (ICD-10 - G47.9)Will start patient back on her Trazodone today. [...] occurs. Patient verbalized understanding, in agreement with plan.01/25/2025Hyperkalemia (ICD-10 - E87.5)Will get updated labs and pt should get done in several days since just discharged and return 1 week roseline if not improving return sooner. Education on s/s of low K+ and other electrolytes and hydration/ electrolyte replacement. Pt VU.05/13/2025Other Body Mass Index: Care Instructions material was published Schedule with Debora Ortega NP for Nexplanon removal. Plan Of Treatment Pending Test Test Name Order Date HIV SCREEN 08/28/2025 RPR w/rfx to Quant & TP Abs 08/28/2025 Antibody Screen 08/28/2025 Comprehensive Metabolic Panel 05/13/2025 Complete Blood Count Auto Diff 5 Progesterone 08/21/2025 Rubella Antibody, IgG 08/28/2025 US OB <= 14 weeks fetus 08/28/2025 US OB transvaginal 08/28/2025 HCG,Qualitative Rfx to Quant 08/21/2025 ABO/Rh 08/28/2025 BhCG Quant 08/28/2025 CBC w/ Auto Diff 08/28/2025 Hep A,B, C Panel 08/28/2025 Insurance Providers Payer Name Payer Address Payer Phone Subscriber Number Group Number Insured Name Patient Relationship to Insured Coverage Start Date Coverage End Date [employer] [place] Medicaid [address] [place] [address] [id number] Gabriella SEGURA - patient is the czpgdzi2301/05/2023Wrap [facility] CareSourcePO [address] [place] [id number], TRINITYSelf - patient is the xjlmglp8912/29/2022zCAR[employer]OURCE-termed 12/28/22[address] [place] [id number], ANGELOITYSelf - patient is the [id number] CF after [employer]-termed 12/28/22[address] [place] [id number], TRINITYSelf - patient is the [id number] [employer]-termed 12/28/22 [address] [place] [id number], ANGELOITYSelf - patient is the calqgnf62zDental MEDICAID CFC after [employer]termed 12/28/22[address] [place] [phone] [id number], ANGELOITYSelf - patient is the zxobwlm4711/28/2020 12/28/2022[facility] [employer]-termed 12/28/22[address] [place] [address] [id number], ANGELOITYSelf - patient is the jghknem0711/28/2022 12/28/2022zBH MEDICAID CFC after [employer] 12/28/22[address] [place] [id number], TRINITYSelf - patient is the [id number] Care[employer]ce [place] MedicaidPO [address] [place] [id number], TRINITYSelf - patient is the insured 12/29/2022 Wrap [facility] CareSourcePO [address] [place] [phone] [id number], TRINITYSelf - patient is the msvevjw84/01/2023Dental [employer] DQ [place] [place] [id number], TRINITYSelf - patient is the /01/2023Dental Wrap [facility] CareSourcePO [address] [place] [id number], TRINITYSelf - patient is the nmhsidj6412/29/2022 Medications Administered Medication Instructions Date of Administration Dosage Notes TORADOL cVAJTOLUH56/24/20210.5 rLDEKEREM87/15/20222 kJBLALSPQ17/28/877842 mg Medical (General) History Medical History History ICD Code Abdominal Pain MigrainesPOTS Dx 2015Upper GI Bleed Requiring NG tube 2019AsthmaOvarian Cyst MenorrhagiaUTIMallory Cotton TearsEnvironmental AllergiesVitamin D Deficiency Pneumonia Age 5MenorrhagiaOverdose in Pediatric PatientSuicidal Thoughts Munchhausen syndrome by ProxyCOVID 19Bipolar DisorderTonsillar Abscess3.4 CM Ovarian CystHyperemesis gravidarumSurgical History Surgery Date(Month/Year) Appendectomy EGDHospitalization History Reason Date(Month/Year) N/V 07/2022 POTS see [id number]
--- OUTSIDE RECORDS SUMMARY | 2025-09-20 13:52 | XMS_ITS | Clinical Summary ---
Author Organization [facility] Address [address] [place] [address] Care Team Providers Care Motorcycle Racer Name Role Phone Unavailable Primary Care Provider Unavailabl e Social History Tobacco UseTypesPacks/DayYears UsedDateSmoking Tobacco: Never Assessed CommentsUnknownSex and Gender InformationValueDate RecordedSex Assigned at Not on fileLegal BfrSiviny61/15/2023 7:10 PM EDTGender IdentityNot on fileSexual OrientationNot on file Last Filed Vital Signs Vital SignReadingTime TakenCommentsBlood Sojlrmnk441/7402/17/2022 12:00 PM EDT Pulse--Temperature--Respiratory Rate--Oxygen Saturation--Inhaled Oxygen Concentration--Gukruo23 kg (161 lb)02/17/2022 12:00 PM IXMVudrsx560.5 cm (5' 2 ) 02/17/2022 12:00 PM EDTBody Mass Index29.45002/17/2022 12:00 PM EDT Plan of Treatment Not on file Insurance
--- NOTE | 2025-09-20 13:53 | US_ITS ---
The [address] [address] Patient Name: PILI SEGURA MRN: [id number] date: 2005 Sex: F Assigned Patient Location: US Current Patient Location: Accession/Order Number: [id number] Exam Date: 09/20/2025 14:04 Report Date: 09/21/2025 09:16 At the request of: ROSEANNA HANSEN NP Procedure: US OB <= 14 weeks fetus Obstetrical ultrasound for fetus less than 14 weeks HISTORY: Encounter for supervision of other normal COMPARISON: None available The heart rate is 167bpm. The ovaries are unremarkable. No free fluid identified in cul-de-sac. No subchorionic hemorrhage identified. Santiago-rump length measures 2.7cm consistent with 9 weeks 4 days.. Yolk sac measures up to 5 mm. The estimated due date by this ultrasound is 04/21/2026. Cervical os closed with length of 3.5 cm. US/US OB <= 14 weeks fetus IMPRESSION: Single live uterine gestation 19 weeks 4 days.. Impression dictated by: Floyd Goldsmith M.D. 09/21/2025 9:16 AM Dictation Location: [employer] Electronically authenticated by: [id number] Y Date: 09/21/2025 09:16
--- OUTSIDE RECORDS SUMMARY | 2025-09-20 13:55 | XMS_ITS | CCD ---
Author Organization [facility] Care Team Providers Care Basic Sciences Professor Name Role Phone Calvin, Mere T Unavailable Unavailable Calvin, Mere T Unavailable Unavailable WILKERSON-LUIS EDUARDO, AIMEE M Unavailable Unavail able Bumagina, Ana Luisa Unavailable Unavailable SPLAWSKI, DALI B Unavailable Unavailable SPLAWSKI, DALI B Unavailable Unavailable Bumagina, Ana Luisa Unavailable Unavailable SPLAWSKI, DALI B Unavailable Unavailable Bumagina, Ana Luisa Unavailable Unavailable Bumagina, Ana Luisa Unavailable Unavailable SPLAWSKI, DALI B Unavailable Unavailable Bumagina, Ana Luisa Unavailable Unavailable Bumagina, Ana Luisa Unavailable Unavailable Calvin, Mere T Unavailable Unavailable Bumagina, Ana Luisa Unavailable Unavailable Bumagina, Ana Luisa Unavailable Unavailable SPLAWSKI, DALI B Unavailable Unavailable Bumagina, Ana Luisa Unavailable Unavailable Bumagina, Ana Luisa Unavailable Unavailable WILKERSON-LUIS EDUARDO, AIMEE M Unavailable Unavail able SPLAWSKI, DALI B Unavailable Unavailable Aktay, Atiye Jeevan Unavailable Unavailable Bumagina, Ana Luisa Unavailable Unavailable SPLAWSKI, DALI B Unavailable Unavailable Bumagina, Ana Luisa Unavailable Unavailable Calvin, Mere T Unavailable Unavailable Bumagina, Ana Luisa Unavailable Unavailable Bumagina, Ana Luisa Unavailable Unavailable SPLAWSKI, DALI B Unavailable Unavailable Bumagina, Ana Luisa Unavailable Unavailable Bumagina, Ana Luisa Unavailable Unavailable LoParo, Radha Magy Unavailable Unavaila ble LoParo, Radha Magy Unavailable Unavaila ble LoParo, Radha Magy Unavailable Unavaila ble Bumagina, Ana Luisa Unavailable Unavailable Unavailable [facility] DO Art Bianchi Emergency Provider DO Ender Donovan Emergency Provider DO Gilda Arguellorick M Emergency Provider Matthew DO Gilson Emergency Provider [phone] MILY Chand Attending Pr ovider MD Brennen Britt Attending Provider [facility] Prov ider [facility] Primary Care Provider FRANKY Rivera Emergency Provider MD Colten Fry Jr Emergency Provider DO Matthew Gilson Emergency Provider Aurelio, DO Gregorio Admit Provider Aurelio DO Gregorio Attending Provider [facility] Prov ider FRANKY Rivera Emergency Provider MD Colten Fry Jr Emergency Provider Matthew DO Gilson Emergency Provider [phone] Aurelio DO Gregorio Admit Provider Aurelio, DO Gregorio Attending Provider MILY Chand Attending Pr ovider TuDO Gilda pittsrick M Emergency Provider [facility] Prov ider FRANKY Rivera Emergency Provider MD Colten Fry Jr Emergency Provider DO Matthew Gilson Emergency Provider [phone] Aurelio, DO Gregorio Admit Provider Aurelio DO Gregorio Attending Provider MILY Chand Attending Pr ovider DO Ravi Arguello Emergency Provider [phone] DO Art Bianchi Emergency Provider [phone] DO Robert Bolanos Emergency Provider [phone] [facility] Primary Care Provider MD Corey Newberry Emergency [place] [facility] Care Prov ider DO Federico Randolph [...] IRWIN Consulting Unavailable Colten Miller Unavailable [facility] Primary Care Provider MILY Chand Attending Pr ovider MD Colten Miller Attending Provider [facility] Primary Care Provider DO Ravi Arguello Emergency Provider [phone] MODESTA ARCHIBALD Primary Care Physician [facility] Primary Care Provider MD Femi Benitez Emergency Provider Cresencio Abel Attending Unavailable MODESTA ARCHIBALD Primary Care Unavailable MODESTA ARCHIBALD Primary Care Unavailable August Bermudez Attending Unavailable MODESTA ARCHIBALD Primary Care Unavailable DO Isaak Francis Attending Unavailable [facility] Primary Care Provider MD Ania Watson Emergency Provider [phone] MODESTA ARCHIBALD Primary Care Unavailable August Bermudez Attending Unavailable Cresencio Abel Attending Unavailable MODESTA ARCHIBALD Primary Care Unavailable MODESTA CHAND Primary Care Physician August Bermuedz Attending Unavailable August Bermudez Attending Unavailable [facility] Primary Care Provider [phone] Rd Brown PA-C Emergency Provider Makayla Monk DO Attending Provider [phone] Jasmeet Dahl MD Attending Provider [phone] Drew Steinberg MD Attending Provider Federico Randolph Attending Unavailable August Bermudez Attending Unavailable Pradeep Guthrie Attending Unavailable Pradeep Guthrie Attending Unavailable NO FAMILY, PHYSICIAN Primary Care Provider Unava ilable Kelsey Espino APRN Attending Provider [phone] Makayla Monk Attending Unavailable Makayla Monk Admitting Unavailable Drew Steinberg Attending Unavailable Drew Steinberg Admitting Unavailable NO FAMILY, PHYSICIAN Primary Care Unavailable Kelsey Espino Attending Unavailable Kelsey Espino Admitting Unavailable [facility] Primary Care Unavaila Rd Marin Attending Unavailable Rd Brown Admitting Unavailable Jasmeet Dahl Admitting Unavailable Jasmeet Dahl Attending Unavailable Allergies Allergy ClassificationReported Allergen(s)Allergy TypeDate of OnsetReaction(s) Facility (16 sources)Haloperidol; Translations: [Haloperidol]Drug [id number] Unknown Reaction, facial droopOhio[facility] (18 sources)Metoclopramide; Translations: [Metoclopramide]Drug [id number] Unknown (qualifier value)[facility] (6 sources)Haloperidol; Translations: [Haldol][facility] (6 sources)Iothalamate; Translations: [Reglan][facility]The [facility] Medications Current Medications MedicationDrug Class(es)DatesSig (Normalized)Sig (Original)acetaminophen 325 mg / HYDROcodone bitartrate 5 mg oral tablet (20 sources)Opioid AgonistStart: 03-13-2024 End: 40-56-7759Lpfpc 325 mg-5 mg oral tablet 1 tab(s), Oral, q6hr for pain for 3 day(s), 7 tab(s), Refill(s) 0, [facility]/pharmacy #[id number], 160, cm, 03/13/24 17:38:00 EDT, Height/Length Dosing, 95.5, kg, 03/13/24 17:38:00 EDT, Weight Dosing Start Date: 03/13/24 Stop Date: 03/16/24 Status: OrderedStart: 63-10-2770hvfy 15 mL by mouth every eight hours as needed for painHYDROcodone-acetaminophen (HYCET) 7.5- 325 mg/15 mL oral liquid Indications: Abscess, peritonsillar Take 15 mL by mouth every 8 hours as needed for pain. 120 mL 0 10/09/2021 ActiveStart: 12-15-2019 End: 81-78-9613jwmn 1 tablet by mouth every six hours as needed for pain Hydrocodone-Acetaminophen ([place]) 5-325 mg tablet Discontinued 1 TAB PO Q6H as needed for pain 6 2 December 15, 2019 December 31, 2019 1:37pmStart: 12-15-2019 End: 96-17-1211Ovrkl: 04-20-2019 End: 24-87-7761nbpn 1 tablet by mouth every six hours as needed for pain Hydrocodone-Acetaminophen 5-325 mg Tablet Discontinued 1 TAB PO Q6H as needed for Pain 20 April 20, 2019 May 05, 2019 8:42pmStart: 04-20-2019 End: 45-35-8608Udxim: 02-19-2019 End: 63-67-5525ztxi 1 tablet by mouth twice daily as needed for painHydrocodone- Acetaminophen ([place]) 5-325 mg tablet Discontinued 1 TAB PO Twice daily as needed for pain 6 February 19, 2019 March 08, 2019 3:53pmStart: 02-19-2019 End: 19-64-4517Fehnfea on above:Take 15 mL by mouth every 8 hours as needed for pain.cephalexin 500 mg oral capsule (20 sources)Cephalosporin AntibacterialStart: 57-83-0063pcpo 1 capsule by mouth every eight hoursStart: 76-30-2080nbhm 1 capsule by mouth every eight hours Cephalexin 500 MG 1 capsule Orally every 8 hrs for 2 days Apr, Active Start: 02-06-2022 End: 97-37-1909tjxi 1 tablet by mouth four times dailyCephalexin 250 mg tablet Discontinued 250 MG PO Four times daily 24 06February 06, 2022 1:00am 2021 8:15pmStart: 08-20-2021 End: 97-61-6113ngiz 1 capsule by mouth twice dailyCephalexin 500 mg capsule Discontinued 500 MG PO Twice daily August 20, 2021 12:00am September 05, 2021 11:25pmStart: 06-01-2021 End: 93-65-9929ujue 2 capsules by mouth every twelve hoursCephalexin 500 mg Capsule Discontinued 1000 MG PO Q12H 40 June 01, 2021 12:00am July 19, 2021 2:07pmStart: 06-01-2021 End: 38-21-8456tioa 1000 mg by mouth every twelve hoursCephalexin Discontinued 1000 MG PO Q12H 40 June 01, 2021 12:00am July 19, 2021 2:07pmStart: 06-01-2021 End: 18-07-5457Mnrqx: 04-14-2021 End: 09-14-1346lste 2 capsules by mouth twice dailyCephalexin 500 mg capsule Discontinued 1000 MG PO Twice daily April 14, 2021 12:00am May 10, 2021 11:08amStart: 04-14-2021 End: 84-72-0583eusj 1000 mg by mouth twice dailyCephalexin Discontinued 1000 MG PO Twice daily April 14, 2021 12:00am May 10, 2021 11:08amStart: 04-14-2021 End: 02-64-2481Kwbeg: 10-07-2020 End: 41-60-3207qicf 1 capsule by mouth twice dailyCephalexin (Keflex) 500 mg capsule Discontinued 500 MG PO Twice daily 16 09October 07, 2020 1:00am January 12, 2021 1:34pmStart: 03-23-2018 End: 72-98-3261gfsh 1 capsule by mouth four times dailyCephalexin (Keflex) 500 mg Capsule Discontinued 500 MG PO Four times daily 40 March 23, 2018 12:00am April 05, 2018 10:48pmStart: 03-23-2018 End: 55-01-9179blhvvwozghmkpuw hydrochloride 5 mg oral tablet (1 source)Muscle RelaxantStart: 01-16-2025 End: 78-72-2441pkki 1 tablet by mouth three times dailycyclobenzaprine 5 mg Tab 5 mg = 1 tab(s), Oral, TID, X 7 day(s), # 21 tab(s), Refills(s) 0, Pharmacy: [facility]/pharmacy #[id number], 157, cm, 01/16/25 17:56:00 EST, Height/Length Dosing, 95, kg, 01/16/25 17:56:00 EST, Weight Dosing Start Date: 01/16/25 Stop Date: 01/23/25 Status: OrderedEtonogestrel (3 sources)ProgestinNexplanon Activemethocarbamol 500 mg oral tablet (2 sources)Muscle RelaxantStart: 03-13-2024 End: 53-46-1269ruxn 1 tablet by mouth three times dailyRobaxin 500 mg Tab 500 mg = 1 tab(s), Oral, TID, X 3 day(s), # 9 tab(s), Refills(s) 0, Pharmacy: [facility] /pharmacy #[id number], 160, cm, 03/13/24 17:38:00 EDT, Height/Length Dosing, 95.5, kg, 03/13/24 17:38:00 EDT, Weight Dosing Start Date: 03/13/24 Stop Date: 03/16/24 Status: Orderednaproxen 500 mg oral tablet (20 sources)Nonsteroidal Anti-inflammatory DrugStart: 06-82-1632drec 1 tablet by mouth twice daily as needed for painnaproxen 500 mg Tab 500 mg = 1 tab(s), Oral, BID, PRN Pain, with food, # 20 tab(s), Refills(s) 0, Pharmacy: [facility]/pharmacy #[id number], 157, cm, 01/16/25 17:56:00 EST, Height/Length Dosing, 95, kg, 01/16/25 17:56:00 EST, Weight Dosing Start Date: 01/16/25 Status: Ordered Start: 02-19-2019 End: 61-62-7378sovu 1 tablet by mouth twice daily as needed for painNaproxen 500 mg tablet Discontinued 500 MG PO Twice daily as needed for pain February 19, 2019 12:00am March 08, 2019 3:53pm administer with food or milkondansetron 4 mg disintegrating oral tablet (20 sources)Serotonin-3 Receptor AntagonistStart: 13-51-9872Jehet: 11-09-2022 End: 66-61-7606kqnx 1 tablet by mouth every eight hours as needed for nausea and vomitingOndansetron 8 mg tablet,disintegrating Discontinued 8 MG PO Q8H as needed for nausea and vomiting 10 November 09, 2022 1:00am October 28, 2024 10:59pmStart: 11-07-2022 End: 85-43-5135Adnieoxtljv Hcl 4 mg tablet Discontinued 4 MG PO every 6 to 8 hours as needed for nausea and vomiting November 07, 2022 1:00am November 09, 2022 4:12pmStart: 08-20-2022 End: 98-42-8653Xrshnsdhhvz 4 mg tablet,disintegrating Discontinued 4 MG PO every 6 to 8 hours as needed for Pwxcyv42 August 20, 2022 12:00am January 06, 2023 5:46pmStart: 05-14-2022 End: 26-02-6866jtpz 1 tablet by mouth every eight hours as needed for nausea and vomitingOndansetron 4 mg tablet,disintegrating Discontinued 4 MG PO Q8H as needed for nausea and vomiting 72 May 14, 2022 12:00am August 18, 2022 12:32pmStart: 02-07-2022 End: 58-43-1661Oibtcyapxxp 4 mg Tablet,Disintegrating Discontinued 4 MG PO every 6 to 8 hours as needed for Oaqrec36 February 07, 2022 1:00am March 08, 2022 8:15pmStart: 07-15-2021 End: 45-37-2137gacn 1 tablet by mouth every eight hours as needed for nausea and vomitingOndansetron Hcl (Zofran) 4 mg tablet Discontinued 4 MG PO Q8H as needed for nausea and vomiting 10 July 15, 2021 12:00am July 19, 2021 2:07pm Start: 04-14-2021 End: 49-55-8910abeb 1 tablet by mouth every eight hours as needed for nausea and vomitingOndansetron 8 mg tablet,disintegrating Discontinued 8 MG PO Q8H as needed for nausea and vomiting 10 April 14, 2021 12:00am July 19, 2021 2:07pmStart: 10-02-2020 End: 77-00-2675zhrg 1 tablet by mouth every eight hours as needed for nausea and vomitingOndansetron 4 mg tablet,disintegrating Discontinued 4 MG PO Q8H as needed for nausea and vomiting 3Nov2019 1:00am January 12, 2021 1:35pmStart: 09-23-2020 End: 26-40-7496ntfz 1 tablet by mouth every eight hours as needed for nausea and vomitingOndansetron Hcl 4 mg tablet Discontinued 4 MG PO Q8H as needed for nausea and vomiting September 23, 2020 12:00am January 12, 2021 1:35pm Start: 06-25-2020 End: 14-42-4014jkiv 1 tablet by mouth three times daily as needed for nausea and vomitingOndansetron 4 mg tablet,disintegrating Discontinued 4 MG PO Three times daily as needed for nausea and vomiting 10 June 25, 2020 12:00am July 19, 2020 2:22pmStart: 01-03-2020 End: 64-58-1081ldvj 1 tablet by mouth every eight hours as needed for nausea and vomitingOndansetron Hcl (Zofran) 4 mg tablet Discontinued 4 MG PO Q8H as needed for nausea and vomiting 6 2February 2019 1:00am February 19, 2020 6:54pm Start: 10-25-2019 End: 41-92-0040Mtcfqjmmolw 4 mg tablet,disintegrating Discontinued 4 MG PO every 6 to 8 hours as needed for nauseaand vomiting April 23, 2020 12:00am May 19, 2020 4:07amStart: 09-30-2019 End: 17-37-6611huwt 1 tablet by mouth four times daily as needed for nausea and vomitingOndansetron Hcl (Zofran) 4 mg tablet Discontinued 4 MG PO Four times daily as needed for nausea andvomiting September 30, 2019 12:00am October 24, 2019 10:46pmStart: 09-30-2019 End: 21-48-5398Lxkvp: 06-24-2019 End: 90-27-6077qqxs 1 tablet by mouth every six hours as needed for nausea and vomitingOndansetron 4 mg tablet,disintegrating Discontinued 4 MG PO Q6H as needed for nausea and vomiting June 24, 2019 12:00am September 03, 2019 8:25pmStart: 06-24-2019 End: 88-85-0637Glhrw: 05-02-2019 End: 82-73-8000Dpbvjeuizgb 8 mg tablet,disintegrating Discontinued 8 MG PO EVERY 8-12 HOURS as needed for nausea and vomiting June 02, 2019 12:00am September 03, 2019 8:25pmStart: 05-02-2019 End: 81-07-7340joev 1 tablet by mouth three times daily as needed for nausea and vomitingOndansetron 8 mg tablet,disintegrating Discontinued 8 MG PO Three times daily as needed for nausea and vomiting May 02, 2019 12:00am September 03, 2019 8:25pmStart: 02-19-2019 End: 68-37-9403yolu 1 tablet by mouth every eight hours as needed for nausea and vomitingOndansetron 4 mg tablet,disintegrating Discontinued 4 MG PO Q8H as needed for nausea and vomiting February 19, 2019 12:00am March 08, 2019 3:53pmStart: 12-28-2018 End: 55-76-5660dteu 1 tablet by mouth three times daily as needed for nausea and vomitingOndansetron Hcl (Zofran) 8 mg Tablet Discontinued 8 MG PO Three times daily as needed for Nausea And Vomiting December 28, 2018 1:00am May 05, 2019 8:42pmStart: 09-04-2018 End: 65-17-5090tdzx 1 tablet by mouth every eight hours as needed for nausea and vomitingOndansetron (Zofran Odt) 4 mg tablet,disintegrating Discontinued 4 MG PO Q8H as needed for nausea and vomiting 9 September 04, 2018 12:00am October 16, 2018 4:08pmStart: 08-29-2018 End: 27-75-2916ontr 1 tablet by mouth every eight hoursOndansetron (Zofran Odt) 4 mg tablet,disintegrating Discontinued 4 MG PO Q8H 9 August 29, 2018 1 2:00am August 31, 2018 12:00am September 01, 2018 12:02amStart: 03-27-2018 End: 60-86-0902nypb 1 tablet by mouth every four hours for nauseaOndansetron (Zofran Odt) 4 mg Tablet,Disintegrating Discontinued 4 MG PO Q4H as needed for Nausea March 27, 2018 12:00am April 06, 2018 12:29am administer first dose 30 minutes before start of emetogenic chemotherapyStart: 03-27-2018 End: 02-31-9435Pgtjc: 01-03-2018 End: 42-59-5575Hyqokyutigf (Zofran Odt) 4 mg tablet,disintegrating Discontinued 8 MG PO Q8H as needed for nausea and vomiting 9 3 January 03, 2018 1:00am January 17, 2018 3:10amStart: 01-03-2018 End: 65-04-2970Kpucg: 10-03-2017 End: 47-98-9885vojp 1 tablet by mouth every eight hours as needed for nausea Ondansetron (Zofran Odt) 4 mg tablet,disintegrating Discontinued 4 MG PO Q8H as needed for nausea October 03, 2017 1:00am October 06, 2017 1:12amStart: 10-03-2017 End: 53-25-8889axqw 1 tablet by mouth every eight hours as needed for nausea and vomitingOndansetron 8 tablet,disintegrating Discontinued 8 MG PO Every 8 hours as needed for Nausea And Vomiting October 03, 2017 1:00am October 16, 2018 4:08pmtake 1 tablet by mouth every six hours as needed for vomitingZofran 8 MG 1 tablet Orally q6h prn for vomiting for 5 days PRN Activepotassium chloride 20 meq extended release oral tablet (20 sources)Start: 50-32-3188rcpi 1 tablet by mouth twice dailyStart: 08-22-2022 End: 16-96-1944oaxb 1 capsule by mouth once dailyPotassium Chloride 10 mEq capsule, extended release Discontinued 10 MEQ PO Daily 09 06August 22, 2022 12:00am November 09, 2022 4:12pmStart: 04-26-2018 End: 86-84-6241xbbn 20 mEq by mouth once dailyPotassium Chloride 20 mEq packet Discontinued 20 MEQ PO Daily April 26, 2018 12:00am May 08, 2018 6:56pm promethazine hydrochloride 12.5 mg oral tablet (20 sources)PhenothiazineStart: 14-93-6677ocmd 1 tablet by mouth every six hours as needed for nauseapromethazine 12.5 mg oral tablet 12.5 mg = 1 tab(s), Oral, q6hr, PRN for nausea/vomiting, # 10 tab(s), Refills(s) 0, Pharmacy: [facility]/pharmacy #[id number], 157, cm, 01/16/25 17:56:00 EST, Height/Length Dosing, 95, kg, 01/16/25 17:56:00 EST, Weight Dosing Start Date: 01/16/25 Status: OrderedStart: 07-30-2024 take 1 tablet by mouth every eight hours as needed for nauseapromethazine 12.5 mg oral tablet 12.5 mg = 1 tab(s), Oral, q8hr, PRN as needed for nausea/vomiting,second line, # 10 tab(s), Refills(s) 0, Pharmacy: [facility]/pharmacy #[id number], 157, cm, 07/30/24 19:37:00 EDT, Height/Length Dosing, 96.1, kg, 07/30/24 19:37:00 EDT, Weight Dosing Start Date: 07/30/24 Status: OrderedStart: 07-30-2024 take 12.5 mg rectal route every eight hours as needed for nauseaPhenergan 12.5 mg Supp 12.5 mg = 1 supp, Rectal, q8hr, PRN as needed for nausea/vomiting, 3rd line,# 6 EA, Refills(s) 0, [id number], cm, 07/30/24 19:37:00 EDT, Height/Length Dosing, 96.1, kg, 07/30/24 19:37:00 EDT, Weight Dosing Start Date: 07/30/24 Status: OrderedStart: 05-25-2023 End: 33-47-0844Gszobwoxnxag 25 mg tablet Discontinued 12.5 MG PO Three times daily as needed for nausea and vomiting May 25, 2023 8:37am October 28, 2024 10:59pmStart: 22-25-2648wwrt 12.5 mg by mouth three times dailyPromethazine Active 12.5 MG PO Three times daily May 25, 2023 8:37amStart: 01-02-2023 End: 57-93-6027Yvtcqbmjdzod 25 mg suppository Discontinued 25 MG OK Q6H as needed for Nausea January 02:00am October 28, 2024 10:59pmStart: 12-31-2022 End: 26-04-3601cifz 1 tablet by mouth three times daily as needed for nausea and vomitingPromethazine 25 mg tablet Discontinued 25 MG PO Three times daily as needed for nausea and qedfmdbd23 January 07, 2023 1:00am May 25, 2023 8:36amStart: 05-15-2022 End: 75-96-7569tlqc 1 tablet by mouth three times daily as needed for nausea Promethazine 25 mg tablet Discontinued 25 MG PO Three times daily as needed for Nausea May 15, 2022 12:00am August 18, 2022 12:33pmStart: 02-09-2022 End: 19-59-9622Gzfsfgxwnzoq 25 mg suppository Discontinued 25 MG OK Q6H as needed for nausea and vomiting 2021 12:00am March 08, 2022 8:15pmStart: 09-30-2021 End: 84-12-2770rbqb 3 tablets by mouth three times daily as needed for nausea and vomitingPromethazine 12.5 mg tablet Discontinued 12.5 MG PO Three times daily as needed for nausea and vomiting 15 5 February 07, 2022 1:00am March 08, 2022 8:15pm 3 doses during day; last dose no later than 4 hr before bedtime Start: 09-30-2021 End: 27-97-5585hvqj 3 tablets by mouth twice daily as needed for nausea and vomitingPromethazine 12.5 mg tablet Discontinued 12.5 MG PO Twice daily as needed for nausea and vomiting 2020 12:00am February 06, 2022 11:25am 3 doses during day; last dose no later than 4 hr before bedtimeStart: 09-30-2021 End: 78-51-9821Uvnemzulnaoa 12.5 mg suppository Discontinued 12.5 MG OK Once September 30, 2021 12:00am 2020 9:34pmStart: 09-30-2021 End: 29-13-9449Mixcvyhcfftq Discontinued 12.5 MG OK Once September 30, 2021 12:00am October 08, 2021 9:34pmStart: 09-30-2021 End: 16-83-2976Oumlv: 04-23-2020 End: 75-68-9632xxjf 1 tablet by mouth every six hours as needed for nausea and vomitingPromethazine 12.5 mg tablet Discontinued 12.5 MG PO Q6H as needed for nausea and vomiting April 23, 2020 12:00am June 25, 2020 5:37pmStart: 03-21-2020 End: 15-32-6104Hltcjzaetzhg 25 mg tablet Discontinued 12.5 MG PO Every 8 hours as needed for nausea and vomiting March 21, 2020 12:00am June 25, 2020 5:37pmStart: 03-21-2020 End: 50-12-9107pnve 12.5 mg by mouth every eight hoursPromethazine Discontinued 12.5 MG PO Every 8 hours March 21, 2020 12:00am June 25, 2020 5:37pm Start: 03-21-2020 End: 59-61-4909Lwdjy: 05-10-2019 End: 16-21-7595Kvdcanvfahzl (Phenergan) 25 mg suppository Discontinued 25 MG OK Q4H as needed for nausea and vomiting May 10, 2019 12:00am September 03, 2019 8:25pmStart: 03-08-2019 End: 51-69-8829amke 1 tablet by mouth every four to six hours as needed for nausea and vomitingPromethazine 25 mg tablet Discontinued 25 MG PO EVERY 4-6 HOURS as needed for nausea and vomiting March 08, 2019 12:00am March 23, 2019 5:49pmStart: 02-13-2018 End: 87-90-3747Mspanesagvma (Phenergan) 25 mg suppository Discontinued 25 MG OK Q8H as needed for nausea and vomiting February 13, 2018 12:00am March 13, 2018 10:44pmStart: 01-03-2018 End: 93-96-8160Zbwzvseghrij 25 mg suppository Discontinued 25 MG OK Q6H as needed for Nausea April 23, 2018 6:04pmOctober 16, 2018 4:08pmStart: 10-03-2017 End: 71-36-7320odmn 1 tablet by mouth every twelve hoursPromethazine 25 tablet Discontinued 25 MG PO Q12H October 03, 2017 1:00am April 06, 2018 12:30am Start: 08-24-2016 End: 89-48-6202bxcs 1 tablet by mouth every six hours as needed for nausea and vomitingPromethazine 25 mg tablet Discontinued 25 MG PO Q6H as needed for nausea and vomiting August 19, 2022 12:00am August 19, 2022 8:05pmZofran ODT 4 mg Tab-Dis (2 sources)Start: 79-05-8223otnt 1 tablet by mouth every eight hours as needed for nauseaZofran ODT 4 mg Tab-Dis 4 mg = 1 tab(s), Oral, q8hr, PRN Nausea/Vomiting, # 16 tab(s), Refills(s) 0, Pharmacy: [facility]/pharmacy #[id number], 157, cm, 07/30/24 19:37:00 EDT, Height/Length Dosing, 96.1, kg, 07/30/24 19:37:00 EDT, Weight Dosing Start Date: 07/30/24 Status: Ordered Completed/Discontinued Medications MedicationDrug Class(es)DatesSig (Normalized)Sig (Original)acetaminophen 325 mg / oxyCODONE hydrochloride 5 mg oral tablet (15 sources)Opioid AgonistStart: 05-25-2023 End: 17-81-6002vkxy 1 tablet by mouth twice dailyOxycodone-Acetaminophen 5-325 mg tablet Discontinued 5 - 325 TAB PO 2 times daily May 25, 2023 12:00am October 28, 2024 10:59pmStart: 69-90-9710sfft 1 tablet by mouth every four to six hours as needed for painPercocet 5-325 MG 1 tablet as needed for pain Orally up to every 4-6 hrs for 5 days SANTO: [id number] Apr, Activetake 1 tablet by mouth every six hoursoxyCODONE-Acetaminophen 5-325 MG 1 tablet as needed Orally every 6 hrs [id number] 200 actuat albuterol 0.09 mg/actuat metered dose inhaler (20 sources)beta2-Adrenergic AgonistStart: 08-20-2021 End: 23-17-6473Lsnlurivv Sulfate 90 mcg/actuation HFA aerosol inhaler Discontinued 2 INH INHALATION Q6H as needed for shortness of breath or wheezing August 20, 2021 12:00am September 05, 2021 11:25pm administer with spacer Start: 08-20-2021 End: 05-51-6608Nwixd: 05-05-2019 End: 05-04-2572ppju 1 puff(s) by inhalation every four to six hours as needed for wheezingAlbuterol Sulfate (Proventil Hfa) 90 mcg/actuation Hfa Aerosol Inhaler Discontinued 2 PUFF INHALATION EVERY 4-6 HOURS as needed for Shortness Of Breath Or Wheezing May 05, 2019 12:00am September 03, 2019 8:24pm with spacerStart: 05-05-2019 End: 43-88-2225Jtxye: 12-21-2017 End: 58-16-3893zhxc 1 puff(s) by inhalation every four to six hours as needed for wheezingAlbuterol Sulfate 90 mcg/actuation Hfa Aerosol Inhaler Discontinued 2 PUFF INHALATION EVERY 4-6 HOURS as needed for Shortness Of Breath Or Wheezing December 21, 2017 1:00am July 19, 2021 2:07pmStart: 12-21-2017 End: 03-02-3227kodv 1 puff(s) by inhalation every four to six hoursAlbuterol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 hypertension]ChronicFluid and electrolyte disorders (20 sources)Dehydration; Translations: [Dehydration]83-09-6406XurndvpnNmzpixkc of lower limb (4 sources)Displaced bicondylar fracture of right tibia, initial encounter for closed fracture; Translations: [Displaced fracture of right tibial spine, initial encounter for closed fracture]EpisodicGastritis and duodenitis (20 sources)Gastritis; Translations: [Gastritis, unspecified, without bleeding] 11-58-2685RfygdlwqRvchlzbptyvpfvym hemorrhage (20 sources)Hematemesis; Translations: [Acute upper gastrointestinal hemorrhage] Onset: 457160-78-4032FwlhnhpbRabdzzglpdeuc symptoms and ill-defined conditions (18 sources)Dysuria; Translations: [Dysuria]95-15-9253VdqngkwzFvguavfi, including migraine (20 sources)Migraine, unspecified, not intractable, without status migrainosus; Translations: [Migraine]Onset: 744413-53-4356IytnzmmAhnanwan, including migraine (2 sources)Headache, including migraine; Translations: [Cluster headache syndrome, unspecified, intractable]Onset: 43-56-7229Kpgsxcic; including migraine (20 sources)Headache; Translations: [Headache]93-38-5782ScbaymyxEcothja and fatigue (20 sources)Asthenia; Translations: [Weakness]81-35-7330VhlrnwjoLvuwlsbilkwrm mental health disorders (20 sources)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; 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]45-49-8783CpyismvDmqt disorders (3 sources)Depressive disorder; Translations: [Major depressive disorder, single episode, unspecified]ChronicNausea and vomiting (20 sources)Adverse reaction to cannabis; Translations: [Nausea with vomiting, unspecified]Onset: 551405-58-0228XyrrnubvDoayafgtzyaab gastroenteritis (20 sources)Gastroenteritis; Translations: [Noninfective gastroenteritis and colitis, unspecified]00-32-0282BnvxquxxBltboubajhm chest pain (20 sources)Chest pain; Translations: [Chest pain, unspecified]01-06-2023 EpisodicNutritional deficiencies (1 source)Vitamin D deficiency, unspecified; Translations: [Vitamin D deficiency, unspecified]Onset: 04-02-9730JjwyjtiCqqs wounds of extremities (20 sources)Laceration of left wrist; Translations: [Laceration without foreign body of left wrist, initial encounter]54-87-0656ExucmdtlTmmj wounds of head; neck; and trunk (20 sources)Laceration - injury; Translations: [Laceration]99-58-6615Axtpnadn Other aftercare (20 sources)Surgical follow-up; Translations: [Encounter for removal of sutures] 86-32-2654GrxfsmdsXtwyi aftercare (1 source)Removal of sutures done; Translations: [Encounter for removal of sutures]60-42-6491AlpvqiwgQiprn circulatory disease (3 sources)Orthostatic hypotension; Translations: [Orthostatic hypotension] EpisodicOther complications of (20 sources)Nausea and vomiting; Translations: [Vomiting of , unspecified]Onset: 219052-59-5043WjrgiubdIbdwh complications of (5 sources)Vomiting of , unspecified; Translations: [Nausea and vomiting during ]62-25-6442EfnhojojRnedh connective tissue disease (14 sources)Muscle pain; Translations: [Myalgia, unspecified site]12-31-2022 EpisodicOther disorders of stomach and duodenum (20 sources)Nonulcer dyspepsia; 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]08-22-2022 EpisodicOther disorders of stomach and duodenum (2 sources)Cannabis hyperemesis syndrome co-occurrent and due to cannabis abuse; Translations: [Cannabis hyperemesis syndrome concurrent with and due to cannabis abuse]20-26-7734RbilihjyHxxza ear and sense organ disorders (20 sources)Otitis externa; Translations: [Unspecified otitis externa, unspecified ear]84-99-3779JruxkjnLuzvv gastrointestinal disorders (20 sources)Diarrhea; Translations: [Diarrhea, unspecified]38-27-5546Zrdknkck Other infections; including parasitic (20 sources)Personal history of other infectious and parasitic diseases; Translations: [History of 2019 novel coronavirus disease (COVID-19)]10-07-2020 EpisodicOther injuries and conditions due to external causes (20 sources)Minor head injury; Translations: [Unspecified injury of head, initial encounter]20-76-3762RtkaevlhWcabk liver diseases (1 source)Fatty (change of) liver, not elsewhere classified; Translations: [Fatty (change of) liver, not elsewhere classified]Onset: 59-51-5958DgksirmAsvxi lower respiratory disease (20 sources)Cough; Translations: [Cough]57-43-2297AmdqmxijQzkhv nervous system disorders (20 sources)Acute abdominal pain; Translations: [Other acute postprocedural pain]43-76-7571RdyguwaiOuwke and delivery including normal (20 sources); Translations: [Encounter for supervision of normal , unspecified, unspecified trimester]Onset: EpisodicOther screening for suspected conditions (not mental disorders or infectious disease) (1 source)Imaging result abnormal; Translations: [Abnormal findings on diagnostic imaging of other specified body structures]Onset: 78-95-9823Udcmyco Other skin disorders (4 sources)Follicular disorder, unspecified; Translations: [FOLLICULAR DISORDER UNSPECIFIED]Onset: 61-94-1035PpsswibpOleym upper respiratory disease (20 sources)Bleeding from nose; Translations: [Epistaxis]25-26-6218WcmsgnhcWolgq upper respiratory infections (20 sources)Upper respiratory infection; Translations: [Acute upper respiratory infection, unspecified]40-47-0197JmxomipzTtvzdw media and related conditions (20 sources)Otitis media; Translations: [Otitis media, unspecified, unspecified ear]23-11-2828JxuulqpyHmvorni cyst (20 sources)Cyst of ovary; Translations: [Unspecified ovarian cyst, unspecified side]43-29-0533NgsqgfsjAyujaerd; pneumothorax; pulmonary collapse (1 source)Interstitial emphysema of lung; Translations: [Interstitial emphysema] Onset: 97-18-6542DajuoqnyNqzauoguv by other medications and drugs (20 sources)Poisoning by unspecified drugs, medicaments and biological substances, accidental (unintentional), initial encounter; Translations: [Overdose in pediatric patient]64-59-6890ZaelcvsoRgzazgrw codes; unclassified (20 sources)Left against medical advice; Translations: [Procedure and treatment not carried out because of patient's decision for other reasons]05-16-2022 EpisodicResidual codes; unclassified (1 source)Procedure and treatment not carried out because of patient's decision for other reasons; Translations: [PROC AND TX NOT CARRIED OUT PT OTH RSN]Onset: 09-61-2933ElhuapqhWjmwxjbe codes; unclassified (3 sources)Nasogastric tube in situ; Translations: [Presence of other specified devices]EpisodicResidual codes; unclassified (3 sources)Insomnia; Translations: [Insomnia, unspecified]EpisodicResidual codes; unclassified (2 sources)Other specified postprocedural statesEpisodicSprains and strains (1 source)Lower back injury; Translations: [Strain of muscle, fascia and tendon of lower back, initial encounter]Onset: 36-96-6329MorxkhxbUpgogusit-related disorders (20 sources)Cannabis hyperemesis syndrome co-occurrent and due to cannabis abuse; Translations: [Cannabis abusewith other cannabis-induced disorder]Onset: 789306-62-4318EfrovxwGcaivsi and intentional self-inflicted injury (20 sources)Suicidal thoughts; Translations: [Suicidal ideations]06-22-2018 EpisodicSuperficial injury; contusion (20 sources)Abrasion of ear region; Translations: [Abrasion of unspecified ear, initial encounter]Onset: 320135-91-3533OebtnmrmUmweztinakbl (1 source)Tachycardia, unspecified / R00.0(ICD-10)Onset: 31-27-6035Qmxagrzqfaky (1 source)Cyclical vomiting, not intractable / G43.A0(ICD-10)Onset: 08-24-2017 Unclassified (1 source)Obesity, unspecified / E66.9(ICD-10)Onset: 87-01-6824Vvjxsnnmwtka (2 sources)Migraine, unsp, not intractable, without status migrainosus / G43.909(ICD-10)Onset: 61-06-0604Wvgruvpnttwm (1 source)Anxiety disorder, unspecified / F41.9(ICD-10)Onset: 08-25-2017 Unclassified (2 sources)Hematemesis / K92.0(ICD-10)Onset: 68-48-8622Mqdhiksyfwsy (1 source)prison (current) use of non-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-inflam (NSAID) / Z79.1(ICD-10)Onset: 27-20-8869Qkqlkflrrgxv (1 source)Cntct w and expsr to environ tobacco smoke (acute) (chronic) / Z77.22(ICD-10)Onset: 44-73-5004Zfrhjnbkmbfr (1 source)Epistaxis / R04.0(ICD-10)Onset: 02-98-5177Stbgngvrtnlb (1 source)BMI pediatric, greater than or equal to 95% for age / Z68.54(ICD-10) Onset: 01-27-4477Quuwjblludin (1 source)Vitamin D deficiency, unspecified / E55.9(ICD-10)Onset: 08-25-2017 Unclassified (1 source)Unspecified abdominal pain / R10.9(ICD-10)Onset: 08-25-2017 Unclassified (1 source)Dorsalgia, unspecified / M54.9(ICD-10)Onset: 57-98-9899Bghjxtjlezmc (1 source)Fatty (change of) liver, not elsewhere classified / K76.0(ICD-10) Onset: 83-20-4601Eauvjjgyrwdf (1 source)Vomiting, unspecified / R11.10(ICD-10)Onset: 43-22-9929Sixudfdigpzo (1 source)Other specified cardiac arrhythmias / I49.8(ICD-10)Onset: 08-24-2017 Unclassified (1 source)CONTACT W/AND (SUSP) EXPOS COVID-19; Translations: [CONTACT W/AND (SUSP) EXPOS COVID-19]Onset: 56-60-0418Txxjy infection (20 sources)Viral disease; Translations: [Viral infection, unspecified] 21-09-9893Teowcidv Past or Other Problems Problem ClassificationProblemDateDocumented DateEpisodic/ChronicSpondylosis; intervertebral disc disorders; other back problems (1 source)Dorsalgia, unspecified; Translations: [Dorsalgia, unspecified]Onset: 06-62-6099LfauitqpYjzkrbtjwodf (1 source)Vomiting, unspecified; Translations: [Vomiting, unspecified]Onset: 77-86-8492Uxnivvzxsuiu (1 source)Tachycardia, unspecified; Translations: [Tachycardia, unspecified] Onset: 13-35-2444Albhdkk tract infections (20 sources)Urinary tract infectious disease; Translations: [Urinary tract infection, site not specified]Onset: 807880-26-3863Rosthnyj Results Test NameValueInterpretationReference RangeFacilityAmphetamine Screen Ql (U) Ordered By: Kelsey Espino on 89-54-8568Ongtbarbqcht Ql (U)NegativeNegative [facility], Cancer CenterBarbiturates [Presence] in Urine by Screen methodOrdered By: Kelsey Espino on 87-85-2227Edauyumdcipi Screen Ql (U)Negative NegativeOhiohealth Arthur G.H. Bing, Md, Cancer CenterBenzodiazepines Screen Ql (U)Ordered By: Kelsey Espino on 64-57-3883Uqarputfacexvvj Ql (U)NegativeNegativeOhiohealth Arthur G.H. Bing, Md, Cancer CenterBenzoylecgonine [Presence] in Urine by Screen method Ordered By: Kelsey Espino on 67-60-9140Iyuhvjzgopjpvgf Screen Ql (U)Negative NegativeOhiohealth Arthur G.H. Bing, Md, Cancer CenterChlamydia/GC/Trich NAAon 08-28-2025 Chlamydia Trachomotis, NAANegativeNormalNegativeThe [facility] Comment on above:Order Comment: Reason for Exam Encounter for supervision of other normal , unspeci Specimen Comment: A duplicate report has been generated due to demographic Specimen Comment: updates.Performed By: #### PAP [id number], GCCHLAMTRI #### [facility] , #### OBUDS #### [facility] [address] [id number] USANeisseria Gonorrhoeae, NAANegativeNormalNegativeThe [facility] Physician GroupComment on above:Order Comment: Reason for Exam Encounter for supervision of other normal , unspeci Specimen Comment: A duplicate report has been generated due to demographic Specimen Comment: updates.Performed By: #### PAP [id number], GCCHLAMTRI #### [facility] , #### OBUDS #### [facility] [address] [place] [address] USATrichomonas NAANegativeNormalNegativeThe [facility] Physician GroupComment on above:Order Comment: Reason for Exam Encounter for supervision of other normal , unspeci Specimen Comment: A duplicate report has been generated due to demographic Specimen Comment: updates.Result Comment: Performed at: =[address], [place], [place] [id number] Preschool Teacher Assistant: Viv Birmingham MD, Phone: [phone] PERFORMED BY: [facility] [address] [place] [address] PATHOLOGIST CUSTOMER FIELD REPRESENTATIVE FRAN NUNEZ M.D.Performed By: #### PAP [id number], GCCHLAMTRI #### [facility] , #### [address] #### [place] [address] USAIGP,Aptima HPV,CtNg Age Gdlnon 60-24-6438AZH, Age GdlnNote Normal.The [facility] Physician GroupComment on above:Order Comment: Reason for Exam Encounter for supervision of other normal , unspeci Specimen Comment: [id number] Comment: TESTS RESULT FLAG UNITS REF RANGE LAB Clinician Provided Cytology Information No. of containers..01 ThinPrep Vial Age Algo ACOG Geeta... -20 12 FLAG LEGEND: L-Low Normal,H-High Normal,LL-Alert Low,HH-Alert High <-Panic Low,>-Panic High,A-Abnormal,AA-Critical Abnormal Performed at: 01 =G [facility] [address] [place] [address] Viv Birmingham MD, Lvnbxyiqe By: #### PAP [id number], GCCHLAMTRI #### [facility] , #### [address] #### [place] [address] USAPAP Chlamydia NAANegativeNormalNegativeThe [facility] Physician GroupComment on above:Order Comment: Reason for Exam Encounter for supervision of other normal , unspeci Specimen Comment: [id number] By: #### PAP [id number], GCCHLAMTRI #### [facility] , #### [address] #### [place] [address] USAPAP GonococcusNegativeNormalNegativeThe [facility] Physician GroupComment on above:Order Comment: Reason for Exam Encounter for supervision of other normal , unspeci Specimen Comment: [id number] Comment: Performed at: = - [facility] [address] [id number] Preschool Teacher Assistant: Viv Birmingham MD, Phone: [phone] Performed at: - [facility] [address] [id number] Preschool Teacher Assistant: Viv Birmingham MD, Phone: [phone] PERFORMED BY: [place] [address] PATHOLOGIST CUSTOMER FIELD REPRESENTATIVE FRAN NUNEZ M.D.Performed By: #### PAP 620869, GCCHLAMTRI #### [facility] , #### [address] #### [place] [address] USAPap IGNoteNormal.The [facility] Physician GroupComment on above:Order Comment: Reason for Exam Encounter for supervision of other normal , unspeci Specimen Comment: [id number] Comment: TESTS RESULT FLAG UNITS REF RANGE LAB DIAGNOSIS: 02 NEGATIVE FOR INTRAEPITHELIAL LESION OR MALIGNANCY. Specimen adequacy: 02 Satisfactory for evaluation. No endocervical component is identified. Performed by: 02 Queta Lofton, Supervisory Dependency Program Director (ASC) . 02 Note: Note 02 The Pap smear is a screening test designed to aid in the detection of premalignant and malignant conditions of the uterine cervix. It is not a diagnostic procedure and should not be used as the sole means of detecting cervical cancer. Both false-positive and false-negative reports do occur. Test Methodology: Note 02 This liquid based ThinPrep(R) pap test was screened with the use of an image guided system. . 02 The HPV DNA reflex criteria were not met with this specimen result therefore, no HPV testing was performed. FLAG LEGEND: L-Low Normal,H-High Normal,LL-Alert Low,HH-Alert High <-Panic Low,>-Panic High,A-Abnormal,AA-Critical Abnormal Performed at: [address] [address] Viv Birmingham MD, Pszqtaemm By: #### PAP 618227, GCCHLAMTRI #### [facility] , #### OBUDS #### [facility] [address] [id number] USAOB Urine Drug Screen (NO THC)on 19-43-6130Igxtfintdal Screen,UrineNegativeNormalNegativeThe [facility] Physician GroupComment on above: Order Comment: Reason for Exam Encounter for supervision of other normal , unspeciPerformed By: #### PAP [id number], GCCHLAMTRI #### [facility] , #### OBUDS #### [facility] [address] [place] [address] USABarbiturate Screen,UrineNegativeNormalNegativeThe [facility] Physician GroupComment on above:Order Comment: Reason for Exam Encounter for supervision of other normal , unspeciPerformed By: #### PAP [id number], GCCHLAMTRI #### [facility] , #### OBUDS #### [facility] [address] [place] [address] USABenzodiazepines Screen,UrineNegativeNormalNegativeThe [facility] Physician GroupComment on above:Order Comment: Reason for Exam Encounter for supervision of other normal , unspeciPerformed By: #### PAP [id number], GCCHLAMTRI #### [facility] , #### OBUDS #### [facility] [address] [place] [address] USACocaine Screen,UrineNegativeNormalNegativeThe [facility] Physician GroupComment on above:Order Comment: Reason for Exam Encounter for supervision of other normal , unspeciPerformed By: #### PAP [id number], GCCHLAMTRI #### [facility] , #### [address] #### [place] [address] USAOpiate Screen,UrineNegativeNormalNegativeSt. Joseph'[facility] Physician GroupComment on above:Order Comment: Reason for Exam Encounter for supervision of other normal , unspeciPerformed By: #### PAP [id number], GCCHLAMTRI #### [facility] , #### OBUDS #### [facility] [address] [place] [address] USAPhencyclidine Screen, UrineNegativeNormalNegativeThe [facility] Physician GroupComment on above:Order Comment: Reason for Exam Encounter for supervision of other normal , unspeciResult Comment: These are unconfirmed results and should not be used for legal purposes. Drug Cut-Off Concentration: AMPH 1000 ng/mL NIKOLAS 200 ng/mL SHRAVAN 200 ng/mL COCM 300 ng/mL OP 300 ng/mL PCP 25 ng/mL PERFORMED BY: [place] [address] PATHOLOGIST CUSTOMER FIELD REPRESENTATIVE FRAN NUNEZ M.D.Performed By: #### PAP 300500, NONIHLAMTRI #### [facility] , #### OBUDS #### [address] [id number] USAOpiates [Presence] in Urine by Screen methodOrdered By: Kelsey Espino on 63-58-5472Uxqszxj Screen Ql (U)NegativeNegSelect Medical Specialty Hospital - Southeast OhioPhencyclidine Screen Ql (U)Ordered By: Kelsey Espino on 85-03-8612Ytmgbcaotefjo Ql (U)NegativeNegSelect Medical Specialty Hospital - Southeast [place] Comment on above:These are unconfirmed results and should not be used for legal purposes. Drug Cut-Off Concentration: AMPH 1000 ng/mL NIKOLAS 200 ng/mL SHRAVAN 200 ng/mL COCM 300 ng/mL OP 300 ng/mL PCP 25 ng/mLUrine Cultureon 23-56-5604Jolxcrcy identified Cx Nom (U)25,000 colonies/ml mixed bacterial skin contaminants 2 Days PERFORMED BY: [place] [address] PATHOLOGIST CUSTOMER FIELD REPRESENTATIVE FRAN NUNEZ M.D.NormalThe [facility] Physician GroupComment on above: Performed By: #### PAP [id number], NONIHLAMTRI #### [facility] , #### OBUDS #### [facility] [address] [place], [place] [address] USAC Urineon 19-73-9071Lkydqrrr identified Cx Nom (U) Microbiology PROCEDURE: Urine Culture [R1] SOURCE: U CleanCatch BODY SITE: COLLECTED DATE/TIME: 08/22/2025 19:48 EDT RECEIVED DATE/TIME: 08/22/2025 20:18 EDT START DATE/TIME: 08/22/2025 20:18 EDT FREE TEXT SOURCE: Sunday Johnson PA-C. Elizabeth LOVE, Sunday Abdi. FINAL REPORTS Final Report [] Verified Date/Time: 08/24/2025 10:07 EDT 3,000 cfu/ml Mixed skin contaminants Performing Locations R1: This test was performed at: [facility], [address] [place] [address], [address] , [place], MlxashRbglacKettering Health TroyComment on above:Performed By: #### [id number] #### [facility] [address] [place] [address]CY 1st Trimesteron 75-89-7637ST 1st TrimesterExam Date/Time: 08/22/2025 21:20 EDT Reason for Exam: [...] Mahamed Quispe MD Transcribed by: KIRA Technologist: OdalismimiMercy HealthBMPon 64-44-4646Lhwtc gap [Moles/Vol]14 mmol/LNormal6-16[facility] Comment on above:Performed By: #### [id number] #### [facility] [address] [place], [place] [address]JKC/Creat Ratio30 No AeucoKfjd58-81IrptkzMercy Health Comment on above:Performed By: #### [id number] #### [facility] [address] [place], [place] [address]Pfrynip [Mass/Vol]10.3 mg/dLNormal8.9-11.1FPomerene HospitalComment on above:Performed By: #### [id number] #### [facility] [address] [place], [place] [address]Xxpknhxw [Moles/Vol]97 mmol/NWqb007-789OkbtasMercy HealthComment on above:Performed By: #### [id number] #### [facility] [address] [place], [place] [address]OX0 [Moles/Vol]27 mmol/BBhcnvq32-26WabjizMercy Health Comment on above:Performed By: #### [id number] #### [facility] [address] [place], [place] [address]Kqranbrfro [Mass/Vol]0.9 mg/dLNormal0.5-1.3FPomerene HospitalComment on above:Performed By: #### [id number] #### [facility] [address] [place], [place] [address]Tzgmtqu [Mass/Vol]106 mg/cIPrcmag97-351QoogtvMercy HealthComment on above:Performed By: #### [id number] #### [facility] [address] [place], [place] [address]Amphhubtj [Moles/Vol]3.3 mmol/LLow3.5-5.3FPomerene HospitalComment on above:Performed By: #### [id number] #### [facility] [address] [place], [place] [address]Xglozb [Moles/Vol]135 mmol/IIoidab814-386HqqofxMercy HealthComment on above:Performed By: #### [id number] #### [facility] [address] [place], [place] [address]Sacw nitrogen [Mass/Vol]27 mg/dLHigh5-21Mercy HealthComment on above:Performed By: #### [id number] #### [facility] [address] [place] [address]MjTV Quanton 53-43-5709Zdxk hCG Nls5631 mIU/mLHigh1-3FPomerene HospitalComment on above:Result Comment: 'F NON < 1 - 3' ' 0.2 - 1 WEEK = 5 TO 50' ' 1 - 2 WEEKS = 50 - 500' ' 2 - 3 WEEKS = 100 - 5000' ' 3 - 4 WEEKS = 500 - 66739' ' 4 - 5 WEEKS = 1000 - 88280' ' 5 - 6 WEEKS = 81130 - 447229' ' 6 - 8 WEEKS = 97234 - 003734' ' 8 - 12 WEEKS = 64349 - 458668'Performed By: #### [id number] #### [facility] [address] [place], [place] [address]KGF w/ Auto Diffon 19-82-0186Crhjhzfm Absolute0.1 E9/LNormal 0.0-0.2FPomerene HospitalComment on above:Performed By: #### [id number] #### [facility] [address] [place], [place] [address]Lpwoxxnbi/100 WBC (Bld)0.8 %Normal0.0-2.0Mercy HealthComment on above:Performed By: #### [id number] #### [facility] [address] [place], [place] [address]Hoi Absolute0.0 E9/LNormal0.0-0.5FPomerene Hospital Comment on above:Performed By: #### [id number] #### [facility] [address] [place], [place] [address]Ikvnxhmjmtf/100 WBC (Bld)0.1 %Normal0.0-8.0Mercy HealthComment on above:Performed By: #### [id number] #### [facility] [address] [place], [place] [address]Lgqqvdgtnzm distribution width (RBC) [Ratio]14.0 %Normal 10.9-14.2FPomerene HospitalComment on above:Performed By: #### [id number] #### [facility] [address] [place] [address]Ryvrsyvmsr (Bld) [Volume fraction]44.8 %Ipztce37.0-46.0Mercy HealthComment on above:Performed By: #### [id number] #### [facility] [address] [place] [address]Esrxehilqw (Bld) [Mass/Vol]15.6 g/mQOobgvt68.0-16.0Mercy HealthComment on above:Performed By: #### [id number] #### [facility] [address] [place] [address]Dwebb Absolute1.4 E9/LNormal1.0-4.0[facility] Comment on above:Performed By: #### [id number] #### [facility] [address] [place] [address]Plpuiddipdc/100 WBC (Bld)8.2 %Low14.0-50.0Mercy HealthComment on above:Performed By: #### [id number] #### [facility] [address] [place] [address]DAG (RBC) [Entitic mass]30.1 idZvrxxl30.0-34.0Mercy HealthComment on above:Performed By: #### [id number] #### [facility] [address] [place], [place] [address]UQEE (RBC) [Mass/Vol]34.8 g/vETwgttg39.4-36.0Mercy HealthComment on above:Performed By: #### [id number] #### [facility] [address] [place], [place] [address]LCH (RBC) [Entitic vol]86.4 kYHsnvlu55.0-100.0Mercy HealthComment on above:Performed By: #### [id number] #### [facility] [address] [place] [address]Yagk Absolute0.9 E9/LNormal0.2-1.0[facility] Comment on above:Performed By: #### [id number] #### Saeed [facility] [address] [place] [address] 88[address]Rqbiqdoal/100 WBC (Bld)5.4 %Normal4.0-14.0[facility] HealthComment on above:Performed By: #### [id number] #### [facility]ed [facility] [address] [place], [place] [address]Fpnnup Zegvmrcu96.1 E9/LHigh2.0-7.5FPomerene Hospital Comment on above:Performed By: #### [id number] #### [facility]ed [facility] [address] [place], [place] [address]Guwjqb Auto85.5 %High36.0-75.0[facility] Comment on above:Performed By: #### [id number] #### [facility]ed [facility] [address] [place], [place] [address]Ejcpjkny166.0 E9/JRcdhen582.0-500.0[facility] Comment on above:Performed By: #### [id number] #### Christophe [facility] [address] [place], [place] [address]Gyirjiqg mean volume (Bld) [Entitic vol]8.0 fLNormal6.4-10.8 [facility] HealthComment on above:Performed By: #### [id number] #### [facility] [address] [place] [address]65[address]OIA7.2 E12/LNormal4.3-5.9[facility] HealthComment on above:Performed By: #### [id number] #### [facility] [address] [place] [address]27[address]QTV23.5 E9/LHigh4.0-11.0[facility]cy HealthComment on above:Performed By: #### [id number] #### [facility] [address] [place] [address]57[address]ND Clinical Summaryon 56-84-8571HX Clinical SummaryED Clinical Summary [address] [address] ED Clinical Summary Person Information Name: PILI PARIKH/[facility] Age: 20 Years : 2005 Sex: Female Language: Guyanese PCP: MODESTA CHAND CNP Marital Status: Single [...] 08/22/2025 21:56:29 08/22/2025 21:56:29 ADDRESS: [address] [facility] [id number] PHYS DOC NOTES: MEDICAL INFORMATION: Prescriptions Given: Medications to Continue Taking That Have Changed [id number], [address] [place], [place] [id number], [phone] START: ondansetron (Zofran ODT 4 mg Tab-Dis) [...] a day as needed Pain. with food. Refills:0. PATIENT EDUCATION INFORMATION: Instructions: Hyperemesis Gravidarum; Nausea and Vomiting, Adult Follow up: With: Address: When: [facility] [phone] In 3 days 08/25/2025 Comments: Follow-up with Kelsey cuadra GLUE REEL OPERATOR at [facility]. Use nausea medications as prescribed. Eat multiple small meals a day. Increase your fluid intake. With: Address: When: MODESTA CHAND [address] [place] SANDUSK (more content not included)... NormalFisher Anthony Medical CenterED Note-Nursingon 12-83-3093UJ Note-NursingED Note-Nursing pt requesting to leave ama. pt states she does not want to keep waiting and just wants to go home. pt made aware of risks of leaving by millicent sanchez and Dr. guthrie. pt still requesting to leave ama. pt informed of when to come back and pt verbalized understanding. ama form signed prior to pt leaving.[facility] CenterED Note-Physicianon [id number] Note-PhysicianED Note-Physician Basic Information Time Seen: Sunday Johnson PA-C. 08/22/2025 17:43 Chief Complaint pt reports abd pain, n/v for the past 3-4 days. denies any urinary symptoms. denies any medicationsat home for symptoms. pt states . unknown how far along. lms 06/28. denies vaginal bleeding. History of Present Illness Patient is a 20-year-old female that presents today for evaluation of her lower abdominal pain withnausea and vomiting. Patient states that symptoms have [...] other associated symptoms no other prior treatments orcomplaints. Family: Reviewed and noncontributory Social: lives at [...] 3.3. Patient is signed out to Dr. Guthrie for final dispo pending remaining laboratory findings [...] feels improved. However on the urinalysis performed forher ultrasound her ketones did not clear. She does not have any nausea medications at home. A prescription for Zofran and ODT as well as Phenergan [place] were prescribed. The patient still wanted to leave AGAINST MEDICAL ADVICE. Discussed with her that she may return atany time to continue her care. She will follow-up with her GLUE REEL OPERATOR at [facility]. Returnprecautions were discussed. All questions were answered. The patient was discharged home. Pradeep Guthrie DO, FAAEM Assessment/Plan 1. Abdominal pain (R10.9: [...] PRN Nausea/Vomiting, # 30 tab(s), Refills(s) 0, [id number] 157, cm, 08/22/25 17:08:00 EDT, Height/Length Dosing, 95, kg, 08/22/25 17:08:00EDT, Weight Dosing promethazine, 25 mg = 1 supp, Rectal, q6hr, PRN Nausea/Vomiting, # 16 EA, Refills(s) 0, [id number] 157, cm, 08/22/25 17:08:00 EDT, Height/Length Dosing, 95, kg, 08/22/25 17:08:00 EDT, Weight Dosing promethazine, 25 mg = 1 supp, Supp, Rectal, Once, Stop date 08/22/25 20:02:00 EDT, STAT, Start date08/22/25 20:02:00 EDT, 08/22/25 20:02:00 EDT Urinary Catheter Insertion Medications Admini (more content not included)...[facility]riners HospitalComment on above:Result Comment: Electronically Signed By: Sunday Johnson PA-C\.br\Date and Time Signed: 08/22/2519:13 EDT\.br\Electronically Co- Signed By: Pradeep Guthrie DO\.br\Date and Time Co-Signed: 08/22/2521:55 EDTED Patient Summaryon 13-12-5456WM Patient SummaryED Patient Summary [address] [address] Patient Discharge Instructions Person Information Name: PILI PARIKH Age: 20 Years Arrival Date: 08/22/2025 17:04:27 Discharge Diagnosis: 1:Abdominal pain; 2:Nausea & vomiting; 3:; Hyperemesis gravidarum;Left against medical advice Primary Care Physician: MODESTA CHAND CNP Provider Information Primary Provider: Federico Randolph DO Advanced Bus Attendant:Elizabeth LOVE, Sunday Abdi. The exam and treatment you received in the Emergency Department were for an urgent problem and are not intended as complete care. It is important that you follow up with a doctor, nurse practitioner,or physician???s trust manager assistant for ongoing care. If your symptoms become worse or you do not improve asexpected and you are unable to reach your usual health care provider, you should return to the Emergency Department. We are available 24 hours a day. JLPILI TERRY has been given the following list of patient education materials, prescriptions andfollow-up instructions: Follow-up Instructions: With: Address: When: [facility] [phone] In 3 days 08/25/2025 Comments: Follow-up with Kelsey your GLUE REEL OPERATOR at [facility]. Use nausea medications as prescribed. Eat multiple small meals a day. Increase your fluid intake. With: Address: When: MODESTA CHAND [facility] [place] [address] [phone] [facility] (1) In 3 days 08/25/2025 Comments: Call [...] opioids can be used to help relieve srqvpuvy-uc-zamhxe pain and are often prescribed following a [...] greater amounts or more often than prescribed. (more content not included)...NormalMer[facility] HealthHep [facility] Panelon 82-64-9000Fccmued [Mass/Vol]5.2 g/dLHigh3.3-5.0[facility] Comment on above:Performed By: #### [id number] #### [facility] [address] [place], [place] [address]Luliwwm/Globulin [Mass ratio]1.4 {ratio}Normal1.1-2.2FPomerene HospitalComment on above:Performed By: #### [id number] #### [facility] [address] [place], [place] [address]Vmi Phos71 Int._Unit/RCgqnhp10-83DauttxMercy Health Comment on above:Performed By: #### [id number] #### [facility] [address] [place], [place] [address]PDC87 Int._Unit/LNormal6-46[facility] HealthComment on above:Performed By: #### [id number] #### [facility] [address] [place], [place] [address]BWN68 Int._Unit/LNormal5-43[facility] HealthComment on above:Performed By: #### [id number] #### [facility] [address] [place], [place] [address]Lmep Direct0.2 mg/dLNormal0.0-0.4FPomerene Hospital Comment on above:Performed By: #### [id number] #### [facility] [address] [place], [place] [address]Qszt Indirect0.5 mg/dLNormal0.1-0.9[facility] Comment on above:Performed By: #### [id number] #### [facility] [address] [place], [place] [address]Zyvu Total0.7 mg/dLNormal0.0-1.1FPomerene Hospital Comment on above:Performed By: #### [id number] #### [facility] [address] [place], [place] [address]Lsykbtzx (S) [Mass/Vol]3.8 g/dLNormal1.4-4.0[facility] HealthComment on above:Performed By: #### [id number] #### [facility] [address] [place], [place] [address]Cqezacn [Mass/Vol]9.0 g/dLHigh6.0-7.8[facility] HealthComment on above:Performed By: #### [id number] #### [facility] [address] [place], [place] [address]Mngaht Levelon 12-56-4285Phhjre Lvl21 unit/ZOuounc39-24DvnrwdMercy HealthComment on above:Performed By: #### [id number] #### [facility] [address] [place], [place] [address]QH with Cult Rflxon 41-22-0581Emecl (U)YellowNormalYellowMercy HealthComment on above:Order Comment: Added by Discern Expert Result Comment: Microscopic readings are only performed on those samples that meet specific criteria set forth by [facility]. Performed By: #### [id number] #### [facility] [address] [place], [place] [address]Qyjtkun (U) [Mass/Vol]NegativeNormalNegativeMercy HealthComment on above:Order Comment: Added by Husam ExpertPerformed By: #### [id number] #### [facility] [address] [place], [place] [address]Brauymo Ql (U)3+ mg/dLAbnormalNegSamaritan North Health CenterComment on above:Order Comment: Added by Husam ExpertPerformed By: #### [id number] #### [facility] [address] [place], [place] [address]MF BloodNegativeNormalNegSamaritan North Health Center Comment on above:Order Comment: Added by Husam ExpertPerformed By: #### [id number] #### [facility] [address] [place], [place] [address]HE BacteriaTraceNormalTraceMercy HealthComment on above:Order Comment: Added by Husam ExpertPerformed By: #### [id number] #### [facility] [address] [place], [place] [address]KB ClarityTurbidAbnormalClearFPomerene HospitalComment on above:Order Comment: Added by Discern ExpertPerformed By: #### [id number] #### [facility] [address] [place], [place] [address]PQ Hyal Rjyj1-0Sytnyp4-3XesszoPomerene HospitalComment on above:Order Comment: Added by Discern ExpertPerformed By: #### [id number] #### [facility] [address] [place], [place] [address]DQ Leuk Est75 Lesli/uLAbnormalNegativeMercy Health Comment on above:Order Comment: Added by Husam ExpertPerformed By: #### [id number] #### [facility] [address] [place] [address]HA MucousTraceNormalNegSamaritan North Health CenterComment on above:Order Comment: Added by Husam ExpertPerformed By: #### [id number] #### [facility] [address] [place] [address]JY NitriteNegativeNormalNegSamaritan North Health Center Comment on above:Order Comment: Added by Husam ExpertPerformed By: #### [id number] #### [facility] [address] [place] [address]DL pH6.5Invalid Interpretation Code5.0-9.0[facility] HealthComment on above:Order Comment: Added by Husam ExpertPerformed By: #### [id number] #### [facility] [address] [place], [place] [address]TL Protein1+ mg/dLAbnormalNegSamaritan North Health Center Comment on above:Order Comment: Added by Husam ExpertPerformed By: #### [id number] #### [facility] [address] [place] [address]VQ EYM5-71Tjxtpuuq0-7YbinrkPomerene HospitalComment on above:Order Comment: Added by Husam ExpertPerformed By: #### [id number] #### [facility] [address] [place], [place] [address]NF Spec Grav1.038Invalid Interpretation Code1.005-1.030[facility] HealthComment on above:Order Comment: Added by Discern Expert Performed By: #### [id number] #### [facility] [address] [place], [place] [address]FY Squam Epithelial>10Invalid Interpretation CodeMercy HealthComment on above:Order Comment: Added by Discern ExpertPerformed By: #### [id number] #### [facility] [address] [place], [place] [address]KC UrobilinogenNegativeNormalNegativeMercy HealthComment on above:Order Comment: Added by Discern ExpertPerformed By: #### [id number] #### [facility] [address] [place], [place] [address]YO QDO7-27Jrafrroo6-8CiicvdPomerene HospitalComment on above:Order Comment: Added by Discern ExpertPerformed By: #### [id number] #### [facility] [address] [place], [place] [address]Xtcnhrkbaoml (U) [Mass/Vol]NegativeNormalNegativeMercy HealthComment on above:Order Comment: Added by Discern ExpertPerformed By: #### [id number] #### [facility] [address] [place], [place] [address]XJ with Cult Rflx SPon 40-34-5074WP Spec DescClean CatchNormal [facility] HealthComment on above:Performed By: #### [id number] #### [facility] [address] [place], [place] [address]nAVPfm 01-55-5270sPMC16 mL/min/1.73 i5Sgfqym>=59[facility] HealthComment on above:Performed By: #### [id number] #### [facility] [address] [place], [place] [address]Xxvmi Cultureon 56-46-1815Dwqyypcm identified Cx Nom (U) >100,000 colonies/ml mixed bacterial skin contaminants 2 Days PERFORMED BY: [place] [address] PATHOLOGIST CUSTOMER FIELD REPRESENTATIVE FRAN NUNEZ M.D.[facility] ER Physician GroupComment on above: Performed By: #### PAP [id number], [id number] #### [facility] , #### [place]BU[place] #### [place] [address] USAUrine Cultureon 81-32-0970Itsvzjoq identified Cx Nom (U) <9,000 colonies/ml mixed bacterial skin contaminants 2 Days PERFORMED BY: [place] [address] PATHOLOGIST CUSTOMER FIELD REPRESENTATIVE FRAN NUNEZ M.D.[facility] ER Physician GroupComment on above: Performed By: #### CUU #### [place] [address] USAUrine cultureOrdered By: Jasmeet Dahl on 05-11-6354Qwueyoiw identified Cx Nom (U)Urine cultureOhiohealth Arthur G.H. Bing, Md, Cancer CenterUrine Cultureon 51-64-9894Sonwdthk identified Cx Nom (U)>100,000 colonies/ml mixed bacterial skin contaminants 2 Days PERFORMED BY: [place] [address] PATHOLOGIST CUSTOMER FIELD REPRESENTATIVE IDANIA GODOY M.D.[facility] ER Physician GroupComment on above: Performed By: #### CUU #### [place] [id number] USACT Abdomen/Pelvis w/ Contraston 42-74-5211NR Abdomen/Pelvis w/ ContrastExam Date/Time: 01/16/2025 18:35 EST Reason for Exam: [...] Anselmo Dolan MD Transcribed by: KIRA Technologist: [facility] CenterCT Chest w/ Contraston 16-52-0122OG Chest w/ ContrastExam Date/Time: 01/16/2025 18:35 EST Reason for Exam: [...] Anselmo Dolan MD Transcribed by: KIRA Technologist: [facility] DublinCT Head or Brain w/o Contraston 73-77-3888SW Head or Brain w/o ContrastExam Date/Time: 01/16/2025 18:30 EST Reason for Exam: [...] Anselmo Dolan MD Transcribed by: KIRA Technologist: [facility] DublinCT Spine Cervical w/o Contraston 27-05-6685PG Spine Cervical w/o ContrastExam Date/Time: 01/16/2025 18:31 EST Reason for Exam: [...] MD Transcribed by: KIRA Technologist: [facility] CenterED Note-Physicianon 39-97-3710UY Note-PhysicianED Note-Physician Basic Information Time Seen: Rashaad Albrecht PA-C. 01/16/2025 17:56 Chief Complaint pt states she tripped on a toy and fell down 14 steps. states protected head during fall and did not have any loc. c-collar in place by ems. pt reports low backpain and b/l knee pain. ems gave 4mg ofzofran History of Present Illness A 19-year-old female [...] other associated symptoms no other prior treatments orcomplaints. Family: Reviewed and noncontributory Social: lives at [...] and Complexity of Problems Differential Diagnosis: [] [facility] Data External documents reviewed: [] My EKG [...] No bruising seen. Due to concerns of aswell as mechanism we did do a full [...] please report back to emergency department for furtherevaluation. The patient was understanding and agreeable to [...] day(s), # 21 tab(s), Refills(s) 0, Pharmacy: [id number], 157, cm, 01/16/25 17:56:00 EST, [...] food, # 20 tab(s), Refills(s) 0, Pharmacy: [facility]/pharmacy #[id number], 157, cm, 01/16/25 17:56:00 EST, Height/Length Dosing, 95, kg, 01/16/25 17:56:00 EST, Weight Dosing promethazine, 12.5 mg = 0.5 tab(s), Tab, Oral, Once, Stop date 01/16/25 19:41:00 EST, STAT, Start date 01/16/25 19:41:00 EST, 01/16/25 19:41:00 EST promethazine, 12.5 mg = 1 tab(s), Oral, q6hr, PRN for nausea/vomiting, # 10 tab(s), Refills(s) 0, Pharmacy: [facility]/pharmacy #[id number], 157, cm, 01/16/25 17:56:00 EST, Height/Length Dosing, 95, kg, 01/16/25 17:56:00 EST, Weight Dosing ABO/Rh ABO/Rh History Check Antibody Screen Basic Metabolic Panel Beta hCG Qual Blood Bank ID# CBC w/ Auto Diff CT Abdomen/Pelvis w/ Contrast CT Chest w/ Contrast CT Head or Brain w/o Cont (more content not included)...[facility]ers HospitalComment on above:Result Comment: Electronically Signed By: Rashaad Albrecht PA-C\.br\Date and Time Signed: 01/16/2522:30 EST\.br\Electronically Co-Signed By: August Bermudez M.D.\.br\Date and Time Co-Signed: 01/17/25 08:51 ESTXR Knee Complete 4+ Views Lefton 20-63-0599QN Knee Complete 4+ Views LeftExam Date/Time: 01/16/2025 18:41 EST Reason for Exam: [...] Carlos Araya DO Transcribed by: KIRA Technologist: [facility] SystemXR Knee Complete 4+ Views Righton 52-48-5893QA Knee Complete 4+ Views RightExam Date/Time: 01/16/2025 18:41 EST Reason for Exam: [...] Carlos Araya DO Transcribed by: KIRA Technologist: AMDCincinnati Shriners HospitalABO/Rhon 00-98-1571BUY/RhPositiveInvalid Interpretation [facility] Comment on above:Performed By: #### [id number] #### [facility] [address] [place], [place] [address]PHN/Rh History Checkon 46-72-3094CYF/Rh History CheckVerified Hx Blood TypeNoKettering Health TroyComment on above:Performed By: #### [id number] #### [facility] [address] [place], [place] [address]PLUUox 90-87-2799YMCH Gel InterpNegativeCincinnati Shriners HospitalComment on above:Performed By: #### [id number] #### [facility] [address] [place], [place] [address]C hCG Qualon 34-81-7785Fgdh HCG ( test) QlNegative [facility]riners HospitalComment on above:Performed By: #### [id number] #### [facility] [address] [place], [place] [address]MXEUU BANKOrdered By: Virginia Mccain on 72-98-0824DCF/Rh Interp PositiveInvalid Interpretation [facility] BB SubsectionABSC Gel InterpNegative (01/16/25 7:26 PM)NormalST. JOHN RE[facility] BB SubsectionBMPon 00-83-9117Gkxje gap [Moles/Vol]20 mmol/LHigh6-16[facility] HealthComment on above:Performed By: #### [id number] #### [facility] [address] [place], [place] [address]Ojqdndi [Mass/Vol]10.9 mg/dLNormal8.9-11.1FPomerene HospitalComment on above:Performed By: #### [id number] #### [facility] [address] [place], [place] [address]Mznyxawu [Moles/Vol]101 mmol/RKifcsy619-809EzboyvMercy HealthComment on above:Performed By: #### [id number] #### [facility] [address] [place], [place] [address]HU0 [Moles/Vol]22 mmol/FMpauex84-80SghmufMercy Health Comment on above:Performed By: #### [id number] #### [facility] [address] [place], [place] [address]Qzyaxbflco [Mass/Vol]0.9 mg/dLNormal0.5-1.3FPomerene HospitalComment on above:Performed By: #### [id number] #### [facility] [address] [place], [place] [address]Ambsmtn [Mass/Vol]116 mg/vUBlfazn86-155ZznsfcMercy HealthComment on above:Performed By: #### [id number] #### [facility] [address] [place], [place] [address]Xaofzmlww [Moles/Vol]3.3 mmol/LLow3.5-5.3FPomerene HospitalComment on above:Performed By: #### [id number] #### [facility] [address] [place], [place] [address]Gdfwqy [Moles/Vol]140 mmol/MVhfzdm763-654BwgesiMercy HealthComment on above:Performed By: #### [id number] #### [facility] [address] [place], [place] [address]Mxfj nitrogen [Mass/Vol]23 mg/dLHigh5-21Mer[facility] HealthComment on above:Performed By: #### [id number] #### [facility] [address] [place], [place] [address]Ojal nitrogen/Creatinine [Mass ratio]26 No KvivvWlng30-84MbnokwMercy HealthComment on above:Performed By: #### [id number] #### [facility] [address] [place], [place] [address]Pnmpc Bank ID#on [id number] Interpretation CodeMercy HealthComment on above:Performed By: #### [id number] #### [facility] [address] [place], [place] [address]WOE w/ Auto Diffon 94-67-3852Okhngsrua/100 WBC (Bld)0.3 %Normal 0.0-2.0[facility] HealthComment on above:Performed By: #### [id number] #### [facility] [address] [place] [address]Qpsxadybd/Leukocytes Auto (Bld) [Pure # fraction]0.0 E9/LNormal 0.0-0.2FPomerene HospitalComment on above:Performed By: #### [id number] #### [facility] [address] [place] [address]Awbcjusyzfg (Bld) [#/Vol]0.0 E9/LNormal0.0-0.5FPomerene HospitalComment on above:Performed By: #### [id number] #### [facility] [address] [place], [place] [address]Bpuvtmamsin/100 WBC (Bld)0.0 %Normal0.0-8.0Mercy HealthComment on above:Performed By: #### [id number] #### [facility] [address] [place], [place] [address]Dwgrvaeaejd distribution width (RBC) [Ratio]13.7 %Normal 10.9-14.2FPomerene HospitalComment on above:Performed By: #### [id number] #### [facility]ed [facility] [address] [place] [address]Sjymxcpejt (Bld) [Volume fraction]46.9 %High34.0-46.0Mer[facility] HealthComment on above:Performed By: #### [id number] #### [facility] [address] [place] [address]Qgyiypnvhb (Bld) [Mass/Vol]16.0 g/kGHaffxk89.0-16.0Mer[facility] HealthComment on above:Performed By: #### [id number] #### [facility] [address] [place] [address]Onutmggjjtz (Bld) [#/Vol]1.4 E9/LNormal1.0-4.0Mercy HealthComment on above:Performed By: #### [id number] #### [facility] [address] [place] [address]Swywikgndau/100 WBC (Bld)11.6 %Low14.0-50.0Mercy HealthComment on above:Performed By: #### [id number] #### [facility] [address] [place] [address]IWV (RBC) [Entitic mass]28.8 nvQsykvu25.0-34.0Mercy HealthComment on above:Performed By: #### [id number] #### [facility] [address] [place] [address]HPYO (RBC) [Mass/Vol]34.1 g/iMTsipma38.4-36.0Mer[facility] HealthComment on above:Performed By: #### [id number] #### [facility] [address] [place] [address]MWM (RBC) [Entitic vol]84.3 zYDsdpkf01.0-100.0Mercy HealthComment on above:Performed By: #### [id number] #### [facility] [address] [place] [address]Psdzlhhko (Bld) [#/Vol]0.6 E9/LNormal0.2-1.0Mercy HealthComment on above:Performed By: #### [id number] #### [facility] [address] [place] [address]Esrnepggimc (Bld) [#/Vol]10.0 E9/LHigh2.0-7.5FPomerene HospitalComment on above:Performed By: #### [id number] #### [facility] [address] [place] [address]Tnlwwdwppwa/100 WBC (Bld)83.4 %High36.0-75.0Mercy HealthComment on above:Performed By: #### [id number] #### [facility] [address] [place] [address]Ghguqbke mean volume (Bld) [Entitic vol]8.9 fLNormal6.4-10.8 [facility] HealthComment on above:Performed By: #### [id number] #### [facility] [address] [place] [address]Gskjefgod (Bld) [#/Vol]300.0 E9/UAovoyo179.0-500.0Mercy HealthComment on above:Performed By: #### [id number] #### [facility] [address] [place] [address]TKJ (Bld) [#/Vol]5.6 E12/LNormal4.3-5.9Mercy HealthComment on above:Performed By: #### [id number] #### [facility] [address] [place] [address]BUT corrected for nucl RBC Auto (Bld) [#/Vol]12.0 E9/LHigh 4.0-11.0Mercy HealthComment on above:Performed By: #### [id number] #### [facility] [address] [place] [address]MWUDMJXUPYtcbzxb By: SYSTEM SYSTEM on 44-34-4690Dsnlxtm [Mass/Vol]5.5 g/dLHigh3.3 - 5.0 gm/dLRemisol ChemAlbumin/Globulin [Mass ratio] 1.5 {ratio}Normal1.1 - 2.2Remisol ChemALP [Catalytic activity/Vol]71 [iU]/d Lcnlnr13 - 98 Int._Unit/LRemisol ChemALT No additional P-5'-P [Catalytic activity/Vol]42 [iU]/dNormal6 - 46 Int._Unit/LRemisol ChemAnion gap [Moles/Vol] 20 mmol/LHigh6 - 16 mEq/LRemisol ChemAST [Catalytic activity/Vol]19 [iU]/dNormal 5 - 43 Int._Unit/LRemisol ChemBilirubin [Mass/Vol]1.0 mg/dLNormal0.0 - 1.1 mg/dL Remisol ChemBilirubin.direct [Mass/Vol]0.2 mg/dLNormal0.0 - 0.4 mg/dLRemisol ChemBilirubin.indirect [Mass or moles/Vol]0.8 mg/dLNormal0.1 - 0.9 mg/dLRemisol ChemCalcium [Mass/Vol]10.9 mg/dLNormal8.9 - 11.1 mg/dLRemisol ChemChloride [Moles/Vol]101 mmol/PSblhpe480 - 111 mmol/LRemisol ChemCO2 [Moles/Vol]22 mmol/L Jbszod88 - 31 mmol/LRemisol ChemCreatinine [Mass/Vol]0.9 mg/dLNormal0.5 - 1.3 mg/dLRemisol BxbonWIK22 mL/min/1.73 f8Nngzdf>=59mL/min/1.73 d5Evnskvr Chem Ethanol Lvlmg/dLNormal<=11mg/dLRemisol ChemGlobulin (S) [Mass/Vol]3.6 g/dLNormal 1.4 - 4.0 gm/dLRemisol ChemGlucose [Mass/Vol]116 mg/uKHmpfyt47 - 199 mg/dL Remisol ChemLactic Acid Lvl1.6 mmol/LNormal0.5 - 2.2 mmol/LRemisol ChemLipase [Catalytic activity/Vol]8 U/LLow13 - 58 unit/LRemisol ChemPotassium [Moles/Vol] 3.3 mmol/LLow3.5 - 5.3 mmol/LRemisol ChemProtein [Mass/Vol]9.1 g/dLHigh6.0 - 7.8 gm/dLRemisol ChemSodium [Moles/Vol]140 mmol/AOiejnf456 - 145 mmol/LRemisol Chem Troponin HS3.40 pg/mLLow10.10 - 27.10 pg/mLRemisol ChemComment on above: Interpretive Data: The 95% CI (Confidence Interval) PPV (Positive Predictive Value) for myocardial infarction in females is 38 pg/mL, in males 51 pg/mL. The results should be used in conjunction withclinical conditions of myocardial infarction. (Access High Sensitivity Troponin I Instructions For Use, [employer], June 2018)Urea nitrogen [Mass/Vol]23 mg/dLHigh5 - 21 mg/dLRemisol ChemUrea nitrogen/Creatinine [Mass ratio]26 mg/xsZsoj22 - 20Remisol ChemCOAGULATION Ordered By: Ghazal Morrell on 21-54-6622tGQX Coag (PPP) [Time]23.1 sLow25.1 - 36.5 second(s)[facility] Auto CoagComment on above:Interpretive Data: Parameter 15 days - 4 weeks 1 [...] same coagulation reagent and instrumentation as [facility]. Currently there are no coagulation studies available worldwide for children to 14 days, andno normal ranges. Heparin therapeutic range (represented by Anti-Factor Xa activity of 0.2 - 0.4 U/mL) corresponds to PTT of 56.6 - 109.0 sec.INR Coag (PPP) [Relative time]1.10 {INR}Invalid Interpretation CodeST. JOHN [facility] Auto CoagComment on above:Interpretive Data: INR results are specifically intended to assess patients stabilized on long-term Anticoagulation therapy suggested INR s Less Intensive Anticoagulation 2.0 3.0 Conventional Range 3.0 4.5PT Coag (PPP) [Time]12.3 sNormal9.4 - 12.5 second(s) [facility] Auto CoagComment on above:Interpretive Data: 15 days - 4 weeks 1 - [...] same coagulation reagent and instrumentation as [facility]. Currently there are no coagulation studies available worldwide for children to 14 days, andno normal ranges.ED Clinical Summaryon [id number] Clinical SummaryED Clinical Summary [place] [address] ED Clinical Summary Person Information Name: PILI PARIKH/[facility] Age: 19 Years : 2005 Sex: Female Language: Guyanese PCP: MODESTA CHAND CNP Marital Status: Single [...] 01/16/2025 20:36:16 01/16/2025 20:36:16 01/16/2025 20:36:16 ADDRESS: [facility] [facility] [id number] PHYS DOC NOTES: MEDICAL INFORMATION: Prescriptions Given: New Medications [facility]/pharmacy #[id number], [address] [place], [place] [id number], [phone] cyclobenzaprine (cyclobenzaprine 5 mg Tab) 1 Tablets By Mouth 3 times a day for 7 Days. Refills: 0. Medications to Continue Taking That Have Changed [facility]/pharmacy #[id number], [address] [place], [place] [id number], [phone] START: naproxen (naproxen 500 mg Tab) 1 Tablets By Mouth 2 times a day as needed Pain. with food. Refills: 0. START: promethazine (promethazine 12.5 mg oral tablet) 1 Tablets By Mouth every 6 hours as needed for nausea/vomiting. Refills: 0. Other Medications START: naproxen (Naprosyn 500 mg Tab) 1 Tablets By Mouth 2 times a day as needed for pain. Refills:0. START: promethazine (Phenergan 12.5 mg Supp) 1 [...] Contusion; Fall Prevention in the Home, Adult, Pjsh-cl-Sxug Follow up: With: Address: When: MODESTA CHAND [address] [place] [phone] Business () In 3 days 2025 Comments: Call Dr for diagnosis based follow up DIAGNOSIS: Abdominal contusion; Fall down steps; [facility] Summary[facility] [id number] Patient SummaryED Patient Summary [address] [address] Patient Discharge Instructions Person Information Name: PILI PARIKH Age: 19 Years Arrival Date: 01/16/2025 17:51:31 Discharge Diagnosis: Abdominal contusion; Fall down steps; Knee contusion Primary Care Physician: MODESTA CHAND CNP Provider Information Primary Provider: August Bermudez M.D. Advanced Bus Attendant:Rashaad Albrecht PA-C The exam and treatment you received in the Emergency Department were for an urgent problem and are not intended as complete care. It is important that you follow up with a doctor, nurse practitioner,or physician???s trust manager assistant for ongoing care. If your symptoms become worse or you do not improve asexpected and you are unable to reach your usual health care provider, you should return to the Emergency Department. We are available 24 hours a day. PILI PARIKH has been given the following list of patient education materials, prescriptions andfollow-up instructions: Follow-up Instructions: With: Address: When: MODESTA CHAND [address] [place] [address] [place] [phone] Business (1) In 3 days 2025 Comments: Call Dr for diagnosis based follow up In the event that this physician does not participate in your insurance network, please consult with your insurance company to find a nearby participating provider. Patient Education Materials: RICE Therapy for Routine Care of Injuries; Contusion; Fall Prevention in the Home, Adult, Bkbn-qw-Jcux A MESSAGE TO ALL PATIENTS REGARDING OPIOIDS PRESCRIPTION OPIOIDS: WHAT YOU NEED TO KNOW Prescription opioids can be used to help relieve hlsrivpt-vh-pfhqlc pain and are often prescribed following a [...] Food and Drug Administration (www.fda.gov/Drugs/ResourcesForYou). ??? Visit (more content not included)...NormalMercy HealthEthanol on 13-50-4859Qmjpcuq Lvl<10Normal<=11Mercy HealthComment on above:Performed By: #### [id number] #### Christophe [facility] [address] [place] [address]UIJNZBMRQSUxozxin By: SYSTEM SYSTEM on 39-24-9545Czomtqlzc/100 WBC (Bld)0.3 %Normal0.0 - 2.0 %Remisol HemeBasophils/Leukocytes Auto (Bld) [Pure # fraction]0.0 E9/LNormal0.0 - 0.2 E9/LRemisol HemeEosinophils (Bld) [#/Vol]0.0 E9/LNormal0.0 - 0.5 E9/LRemisol HemeEosinophils/100 WBC (Bld)0.0 %Normal0.0 - 8.0 %Remisol HemeErythrocyte distribution width (RBC) [Ratio]13.7 %Fucnls84.9 - 14.2 %Remisol HemeHematocrit (Bld) [Volume fraction]46.9 %High34.0 - 46.0 % Remisol HemeHemoglobin (Bld) [Mass/Vol]16.0 g/uBRgdedq01.0 - 16.0 gm/dLRemisol HemeLymphocytes (Bld) [#/Vol]1.4 E9/LNormal1.0 - 4.0 E9/LRemisol Heme Lymphocytes/100 WBC (Bld)11.6 %Low14.0 - 50.0 %Remisol HemeMCH (RBC) [Entitic mass]28.8 wsPioqwn23.0 - 34.0 pgRemisol HemeMCHC (RBC) [Mass/Vol]34.1 g/dLNormal 31.4 - 36.0 gm/dLRemisol HemeMCV (RBC) [Entitic vol]84.3 lMUvgknd01.0 - 100.0 fL Remisol HemeMonocytes (Bld) [#/Vol]0.6 E9/LNormal0.2 - 1.0 E9/LRemisol Heme Monocytes/100 WBC (Bld)4.7 %Normal4.0 - 14.0 %Remisol HemeNeutrophils (Bld) [#/Vol]10.0 E9/LHigh2.0 - 7.5 E9/LRemisol HemeNeutrophils/100 WBC (Bld)83.4 % High36.0 - 75.0 %Remisol HemePlatelet mean volume (Bld) [Entitic vol]8.9 fL Normal6.4 - 10.8 fLRemisol HemePlatelets (Bld) [#/Vol]300.0 E9/NJstcof901.0 - 500.0 E9/LRemisol HemeRBC (Bld) [#/Vol]5.6 E12/LNormal4.3 - 5.9 E12/LRemisol HemeWBC corrected for nucl RBC Auto (Bld) [#/Vol]12.0 E9/LHigh4.0 - 11.0 E9/L Remisol HemeHep Func Panelon 31-21-0321Pxsymco [Mass/Vol]5.5 g/dLHigh3.3-5.0 Mercy HealthComment on above:Performed By: #### [id number] #### [facility] [address] [place], [place] [address]Bulaebq/Globulin (S) [Mass conc ratio]1.2Lafkap7.1-2.2FPomerene HospitalComment on above:Performed By: #### [id number] #### [facility] [address] [place], [place] [address]XGY [Catalytic activity/Vol]71 Int._Unit/LVsfkpk54-53FuijyuMercy HealthComment on above:Performed By: #### [id number] #### [facility] [address] [place] [address]XCY No additional P-5'-P [Catalytic activity/Vol]42 Int._Unit/L Normal6-46Mercy HealthComment on above:Performed By: #### [id number] #### [facility] [address] [place] [address]DMQ [Catalytic activity/Vol]19 Int._Unit/LNormal5-43Mercy HealthComment on above:Performed By: #### [id number] #### [facility] [address] [place], [place] [address]Igowpnfnf [Mass/Vol]1.0 mg/dLNormal0.0-1.1FPomerene HospitalComment on above:Performed By: #### [id number] #### [facility] [address] [place] [address]Skptlguoo.direct [Mass/Vol]0.2 mg/dLNormal0.0-0.4FPomerene HospitalComment on above:Performed By: #### [id number] #### [facility] [address] [place], [place] [address]Fmdkufrub.indirect [Mass or moles/Vol]0.8 mg/dLNormal0.1-0.9 Mercy HealthComment on above:Performed By: #### [id number] #### [facility] [address] [place], [place] [address]Sbzcyebn (S) [Mass/Vol]3.6 g/dLNormal1.4-4.0Mercy HealthComment on above:Performed By: #### [id number] #### [facility] [address] [place], [place] [address]Rkbgjdb [Mass/Vol]9.1 g/dLHigh6.0-7.8Mercy HealthComment on above:Performed By: #### [id number] #### [facility] [address] [place] [address]Ykqqut Acidon 72-13-4036Euymog Acid Lvl1.6 mmol/LNormal0.5-2.2 Mercy HealthComment on above:Performed By: #### [id number] #### [facility] [address] [place], [place] [address]Thbhtp Levelon 33-11-8480Gvefgd [Catalytic activity/Vol]8 U/L Jbp99-05XglvwxMercy HealthComment on above:Performed By: #### [id number] #### [facility] [address] [place], [place] [address]CS & PTTon 81-27-4158cRIC Coag (PPP) [Time]23.1 second(s)Low 25.1-36.5FPomerene HospitalComment on above:Result Comment: Parameter 15 days - 4 weeks [...] same coagulation reagent and instrumentation as [facility]. Currently there are no coagulation studies available worldwide for children to 14 days, andno normal ranges. Heparin therapeutic range (represented by Anti-Factor Xa activity of 0.2 - 0.4 U/mL) corresponds to PTT of 56.6 - 109.0 sec.Performed By: #### [id number] #### Saeed [facility] [address] [place], [place] [address]QTT Coag (PPP) [Relative time]1.10 {INR}Invalid Interpretation CodeMercy HealthComment on above:Result Comment: INR results are specifically intended to assess patients stabilized on long-term Anticoagulation therapy suggested INR???s ???Less Intensive Anticoagulation??? 2.0 ??? 3.0 Conventional Range 3.0 ??? 4.5Performed By: #### [id number] #### Saeed [facility] [address] [place], [place] [address]FX Coag (PPP) [Time]12.3 second(s)Normal9.4-12.5Fisher [facility] Medical CenterComment on above:Result Comment: 15 days - 4 weeks 1 - 5 months 6 -11 months 1 ??? 5 years 6 ??? 10 years 11 -17 years Mean: 11.2 (9.5 ??? 12.6) Mean: 11.0 (9.7 ??? 12.8) Mean: 11.0 (9.8 ??? 13.0) Mean: 11.3 (9.9 ??? 13.4) Mean: 11.7 (10.0 ??? 14.6) Mean: 11.8 (10.0 - 14.1) Pediatric Reference ranges were obtained from a study by jyoti Youssef. prepared from 1437 samples obtained at 7 different centers using the same coagulation reagent and instrumentation as [facility]. Currently there are no coagulation studies available worldwide for children to 14 days, andno normal ranges.Performed By: #### [id number] #### [facility] [address] [place], [place] [address]Fok-Qaicscr Noteon 65-65-7455Bbh-Arrival NotePre-Arrival Note Pre-Arrival Summary Name: ruben Current Date: 01/16/2025 17:51:59 EST Gender: Female Date of : Age: 19 Pre-Arrival Type: EMS ETA: 01/16/2025 18:12:00 EST Primary Care Physician: Presenting Problem: fall Pre-Arrival User: Referring Source: Location: Completion Date/Time: 01/16/2025 17:42:00 [facility] Emergency Department Pre-Hospital Report Form Vital Signs: Pre-Hospital Report: Treatment in Route: Response to Treatment: Misc. Issues:NormalSelect Medical Specialty Hospital - Columbus SouthEROLOGYOrdered By: Ghazal Morrell on 56-75-1647Xvvp HCG ( test) QlNegative (01/16/25 7:26 PM)[facility] Man SeroTroponinon 91-95-7170Abmyvfzn HS3.40 pg/mL Low10.10-27.10Mercy HealthComment on above:Result Comment: The 95% CI (Confidence Interval) PPV (Positive Predictive Value) for myocardial infa rction in females is 38 pg/mL, in males 51 pg/mL. The results should be used in conjunction with clinical conditions of myocardial infarction. (Access High Sensitivity Troponin I Instructions For Use, [employer], June 2018)Performed By: #### [id number] #### [facility] [address] [place], [place] [address]hCNJiq 87-70-3334cYHX54 mL/min/1.73 n3Vbpheq>=59Mercy HealthComment on above:Performed By: #### [id number] #### [facility] [address] [place], [place] [address]Fbmvzev aminotransferase [Enzymatic activity/volume] in Serum or PlasmaOrdered By: Rd Brown on 07-66-7855DNE [Catalytic activity/Vol] Alanine aminotransferase [Enzymatic activity/volume] in Serum or Plasma7 [facility], Cancer CenterAlbumin [Mass/volume] in Serum or Plasma by Bromocresol green (BCG) dye binding methoOrdered By: Rd Brown on 10-28-2024 Albumin BCG dye [Mass/Vol]Albumin [Mass/volume] in Serum or Plasma by Bromocresol green (BCG) dye binding metho3.5-5.7FDayton Osteopathic HospitalAlkaline phosphatase [Enzymatic activity/volume] in Serum or PlasmaOrdered By: Rd Brown on 47-21-0484DOR [Catalytic activity/Vol]Alkaline phosphatase [Enzymatic activity/volume] in Serum or Oskkpq52-085TyjmfodquOhiohealth Arthur G.H. Bing, Md, Cancer CenterAmphetamine Screen Ql (U)Ordered By: Rd Brown on 10-28-2024 Amphetamines Ql (U)Amphetamines screenNegativeOhiohealth Arthur G.H. Bing, Md, Cancer Center Appearance of UrineOrdered By: Rd Brown on 28-36-4419Eyiigbtsrs (U)Urine appearanceAbnormalClearOhiohealth Arthur G.H. Bing, Md, Cancer CenterAspartate aminotransferase [Enzymatic activity/volume] in Serum or PlasmaOrdered By: Rd Brown on 36-70-9728MTK [Catalytic activity/Vol]Aspartate aminotransferase [Enzymatic activity/volume] in Serum or Gwtcig94-29EmmtnyiymOhiohealth Arthur G.H. Bing, Md, Cancer CenterBacteria [Presence] in Urine by AutomatedOrdered By: Rd Brown on 07-74-7116Iqsagydq Auto Ql (U)Bacteria [Presence] in Urine by AutomatedHighNone SeenOhiohealth Arthur G.H. Bing, Md, Cancer CenterBarbiturates [Presence] in Urine by Screen methodOrdered By: Rd Brown on 29-89-3411Ghffwuinydye Screen Ql (U) Barbiturates [Presence] in Urine by Screen methodNegSelect Medical Specialty Hospital - Southeast OhioBasic Metabolic Panelon 66-30-0197Urrdr gap [Moles/Vol]19.5 mmol/L High6.0-15.0The [facility] Physician GroupComment on above:Performed By: #### PAP [id number], GCCHLAMTRI #### [facility] , #### OBUDS #### [facility] [address] [place] [address] USACalcium [Mass/Vol]10.4 mg/dLHigh8.6-10.3The [facility] Physician GroupComment on above:Performed By: #### PAP [id number], GCCHLAMTRI #### [facility] , #### OBUDS #### [facility] [address] [place] [address] USAChloride [Moles/Vol]94 mmol/YIeg11-039Ydw [facility] Physician GroupComment on above:Performed By: #### PAP [id number], GCCHLAMTRI #### [facility] , #### OBUDS #### [facility] [address] [place] [address] USACO2 [Moles/Vol]26.3 mmol/WHepvhp87.0-31.0The [facility] Physician GroupComment on above:Performed By: #### PAP [id number], GCCHLAMTRI #### [facility] , #### OBUDS #### [facility] [address] [place] [address] USACreatinine [Mass/Vol]0.91 mg/dLNormal0.60-1.20The [facility] Physician GroupComment on above:Performed By: #### PAP [id number], GCCHLAMTRI #### [facility] , #### OBUDS #### [facility] [address] [place] [address] USACreatinine Clr Calc Npxxppxd202.62NormalThe [facility] Physician GroupComment on above:Performed By: #### PAP [id number], GCCHLAMTRI #### [facility] , #### OBUDS #### [facility] [address] [place] [address] USAGFR/1.73 sq M.predicted MDRD (S/P/Bld) [Vol rate/Area] mL/min/{1.73_m2}NormalThe [facility] Physician GroupComment on above:Performed By: #### PAP [id number], GCCHLAMTRI #### [facility] , #### OBUDS #### [place] [address] USAGlucose [Mass/Vol]91 mg/mOHmavdc52-430Jkl [facility] Physician GroupComment on above:Result Comment: Random Glucose Reference Range is dependent on time and content of last meal. Glucose of more than 200 mg/dL in a nonstressed, ambulatory subject supports the diagnosis of Diabetes Mellitus. ADA recommended reference rangePerformed By: #### PAP [id number], GCCHLAMTRI #### [facility] , #### OBUDS #### [place] [address] USAPotassium [Moles/Vol]2.8 mmol/LOff scale low3.5-5.1The [facility] Physician GroupComment on above:Result Comment: Critical Result Called to and read back by: MATT BUSH at: 10/28/2024 19:29:56 by:[id number] By: #### PAP [id number], GCCHLAMTRI #### [facility] , #### OBUDS #### [place] [address] USASodium [Moles/Vol]137 mmol/NCjhdgm471-993Rcx [facility] Physician GroupComment on above:Performed By: #### PAP [id number], GCCHLAMTRI #### [facility] , #### OBUDS #### [facility] [address] [place] [address] USAUrea nitrogen [Mass/Vol]21 mg/dLNormal7-25The [facility] Physician GroupComment on above:Performed By: #### PAP [id number], GCCHLAMTRI #### [facility] , #### OBUDS #### [place] [address] USABasophils Auto (Bld) [#/Vol]Ordered By: Rd Brown on 95-61-3928Chqcqqaeu (Bld) [#/Vol]Automated basophil count0.0-0.2FDayton Osteopathic HospitalBasophils/100 WBC Auto (Bld)Ordered By: Rd Brown on 49-56-4831Xpunvpdox/100 WBC (Bld)Automated basophil %.Ohio[facility] Md, Cancer CenterBenzodiazepines Screen Ql (U)Ordered By: Rd Brown on 10-28-2024 Benzodiazepines Ql (U)Benzodiazepines [Presence] in Urine by Screen method NegativeOhiohealth Arthur G.H. Bing, Md, Cancer CenterBenzoylecgonine [Presence] in Urine by Screen methodOrdered By: Rd Brown on 43-64-6942Ylmkvlmphlgolrc Screen Ql (U) Benzoylecgonine [Presence] in Urine by Screen methodNegativeOhiohealth Arthur G.H. Bing, Md, Cancer CenterBilirubin Test strip Ql (U)Ordered By: Rd Brown on 10-28-2024 Bilirubin Ql (U)Bilirubin.total [Presence] in Urine by Test stripNegative [facility] Cancer CenterBilirubin.direct [Mass/volume] in Serum or PlasmaOrdered By: Rd Brown on 46-34-7464Wsjwmotzq.direct [Mass/Vol] Bilirubin.direct [Mass/volume] in Serum or PlasmaHigh0.03-0.18FDayton Osteopathic HospitalBilirubin.total [Mass/volume] in Serum or PlasmaOrdered By: Rd Brown 10-96-9077Xjjvyvdxh [Mass/Vol]Bilirubin.total [Mass/volume] in Serum or PlasmaHigh0.3-1.0[facility], Cancer CenterCalcium [Mass/volume] in Serum or PlasmaOrdered By: Rd Brown 52-05-1269Upijsuu [Mass/Vol] Calcium [Mass/volume] in Serum or PlasmaHigh8.6-10.3FDayton Osteopathic HospitalCannabinoids [Presence] in Urine by Screen methodOrdered By: Rd Brown on 04-70-9360Wnuzwcpzhuey Screen Ql (U)Cannabinoids [Presence] in Urine by Screen methodHighNegativeOhiohealth Arthur G.H. Bing, Md, Cancer CenterComment on above:These are unconfirmed results and should not be used for legal purposes. Drug Cut-Off Concentration: AMPH 1000 ng/mL NIKOLAS 200 ng/mL SHRAVAN 200 ng/mL COCM 300 ng/mL OP 300 ng/mL PCP 25 ng/mL THC 20 ng/mLCarbon dioxide, total [Moles/volume] in Serum or PlasmaOrdered By: Rd Brown on 06-15-4257JX8 [Moles/Vol]Carbon dioxide, total [Moles/volume] in Serum or Yumxki97.0-31.0[facility], Cancer CenterChloride [Moles/volume] in Serum or PlasmaOrdered By: Rd Brown on 23-52-7957Oimkxpnz [Moles/Vol]Chloride [Moles/volume] in Serum or PlasmaLow 98-107Ohio[facility], Cancer CenterColor Auto (U)Ordered By: Rd Brown on 90-60-0315Gyroq (U)Color of Urine by AutoAbnormalYellowOhiohealth Arthur G.H. Bing, Md, Cancer CenterComplete Blood Count Auto Diffon 16-67-3944Tfqragmnl (Bld) [#/Vol] 0.1 10*3/uLNormal0.0-0.2The [facility] Physician GroupComment on above:Result Comment: PERFORMED BY: [place] [address] PATHOLOGIST CUSTOMER FIELD REPRESENTATIVE IDANIA GODOY M.D.Performed By: #### PAP [id number], GCCHLAMTRI #### [facility] , #### OBUDS #### [facility] [address] [place] [address] USABasophils/100 WBC (Bld)0.7 %Normal.The [facility] Physician GroupComment on above:Performed By: #### PAP [id number], GCCHLAMTRI #### [facility] , #### OBUDS #### [facility] [address] [place] [address] USAEosinophils (Bld) [#/Vol]0.1 10*3/uLNormal0.0-0.45The [facility] Physician GroupComment on above:Performed By: #### PAP [id number], GCCHLAMTRI #### [facility] , #### OBUDS #### [place] [address] USAEosinophils/100 WBC (Bld)0.6 %Normal.The [facility] Physician GroupComment on above:Performed By: #### PAP [id number], GCCHLAMTRI #### [facility] , #### OBUDS #### [place] [address] USAErythrocyte distribution width (RBC) [Ratio]13.4 %Normal 11.9-15.3The [facility] Physician GroupComment on above:Performed By: #### PAP [id number], GCCHLAMTRI #### [facility] , #### OBUDS #### [place] [address] USAHematocrit (Bld) [Volume fraction]49.2 %High34.0-46.4The [facility] Physician GroupComment on above:Performed By: #### PAP [id number], GCCHLAMTRI #### [facility] , #### OBUDS #### [place] [address] USAHemoglobin (Bld) [Mass/Vol]16.5 g/dLBlfu94.8-15.4The [facility] Physician GroupComment on above:Performed By: #### PAP [id number], GCCHLAMTRI #### [facility] , #### OBUDS #### [place] [address] USALymphocytes (Bld) [#/Vol]2.9 10*3/uLNormal1.00-4.8The [facility] Physician GroupComment on above:Performed By: #### PAP [id number], GCCHLAMTRI #### [facility] , #### OBUDS #### [place] [address] USALymphocytes/100 WBC (Bld)14.7 %Normal.The [facility] Physician GroupComment on above:Performed By: #### PAP 955209, GCCHLAMTRI #### [facility] , #### OBUDS #### [address]H (RBC) [Entitic mass]28.7 ndFklbgb82.7-34.3The [facility] Physician GroupComment on above:Performed By: #### PAP 955510, GCCHLAMTRI #### [facility] , #### OBUDS #### [facility] [address] [place], [place] [address]V (RBC) [Entitic vol]85.7 hDEpmuen06-731Kup [facility] Physician GroupComment on above:Performed By: #### PAP 475130, GCCHLAMTRI #### [facility] , #### OBUDS #### [facility] [address] [place] [address] USAMean Corpuscular HGB Conc33.5 g/cGVqyrxs01.0-35.0The [facility] Physician GroupComment on above:Performed By: #### PAP [id number], GCCHLAMTRI #### [facility] , #### OBUDS #### [facility] [address] [place] [address] USAMonocytes (Bld) [#/Vol]1.2 10*3/uLHigh0.0-0.8The [facility] Physician GroupComment on above:Performed By: #### PAP [id number], GCCHLAMTRI #### [facility] , #### OBUDS #### [facility] [address] [place] [address] USAMonocytes/100 WBC (Bld)16.96 %Normal0.00-20.00The [facility] Physician GroupComment on above:Performed By: #### PAP [id number], GCCHLAMTRI #### [facility] , #### OBUDS #### [place] [address] USAMonocytes/100 WBC (Bld)5.9 %Normal.The [facility] Physician GroupComment on above:Performed By: #### PAP [id number], GCCHLAMTRI #### [facility] , #### OBUDS #### [facility] [address] [place], [place] [address] USANeutrophils (Bld) [#/Vol]15.5 10*3/uLHigh1.8-7.7The [facility] Physician GroupComment on above:Performed By: #### PAP [phone], GCCHLAMTRI #### [facility] , #### OBUDS #### [place] [address] USANeutrophils/100 WBC (Bld)78.1 %Normal.The [facility] Physician GroupComment on above:Performed By: #### PAP [id number], GCCHLAMTRI #### [facility] , #### OBUDS #### [place] [address] USANRBC%0.1 /100{WBC}Normal0-0.5[facility] Comment on above:Performed By: #### PAP [id number], GCCHLAMTRI #### [facility] , #### OBUDS #### [facility] [address] [place] [address] USAPlatelet mean volume (Bld) [Entitic vol]8.4 fLNormal 6.3-10.7The [facility] Physician GroupComment on above:Performed By: #### PAP [id number], GCCHLAMTRI #### [facility] , #### OBUDS #### [facility] [address] [place] [address] USAPlatelets (Bld) [#/Vol]333 10*3/qSHddvzp343-053Eju [facility] Physician GroupComment on above:Performed By: #### PAP 230460, GCCHLAMTRI #### [facility] , #### OBUDS #### [facility] [address] [place] [address] USARBC (Bld) [#/Vol]5.74 10*6/uLHigh3.60-5.00The [facility] Physician GroupComment on above:Performed By: #### PAP [id number], GCCHLAMTRI #### [facility] , #### OBUDS #### [facility] [address] [place] [address] USAWBC (Bld) [#/Vol]19.8 10*3/uLHigh3.8-11.6The [facility] Physician GroupComment on above:Performed By: #### PAP [phone], GCCHLAMTRI #### [facility] , #### OBUDS #### [place] [address] USACreatinine [Mass/volume] in Serum or PlasmaOrdered By: Rd Brown on 64-18-2768Upalchkxvb [Mass/Vol]Creatinine [Mass/volume] in Serum or Plasma0.60-1.20[facility], Md, Cancer CenterDipstick and Microscopicon 31-91-0742Xbpvlmiogl (U)TurbidCritically abnormalClearThe [facility] Physician GroupComment on above:Order Comment: Name Collection Type:: Clean-Voided MidstreamPerformed By: #### ADDONUAPLUS, CUU, UHCG #### [place] [address] USABacteria,Urine1+HighNone SeenThe [facility] Group Comment on above:Order Comment: Name Collection Type:: Clean-Voided Midstream Performed By: #### ADDONUAPLUS, CUU, UHCG #### [place] [address] USABilirubin,UrineNegativeNormalNegativeSt. Joseph'[facility] Hospital Physician GroupComment on above:Order Comment: Name Collection Type:: Clean- Voided MidstreamPerformed By: #### ADDONUAPLUS, CUU, UHCG #### [facility] [address] [place] [address] USAColor (U)Light-OrangeCritically abnormalYellowSt. Joseph'S Women'S Hospital Physician GroupComment on above:Order Comment: Name Collection Type:: Clean-Voided MidstreamPerformed By: #### ADDONUAPLUS, CUU, UHCG #### [facility] [address] [place] [address] USAGlucose Ql (U)NormalNormalNormalThBoundary Community Hospital Physician GroupComment on above:Order Comment: Name Collection Type:: Clean-Voided MidstreamPerformed By: #### ADDONUAPLUS, CUU, UHCG #### [facility] [address] [place] [address] USAHyaline Casts,Urine9 [LPF]High0-8The [facility] Physician GroupComment on above:Order Comment: Name Collection Type:: Clean-Voided MidstreamPerformed By: #### ADDONUAPLUS, CUU, UHCG #### [facility] [address] [place] [address] USAKetones Ql (U)3+HighNegativeSt. Joseph'S Women'S Hospital Physician Group Comment on above:Order Comment: Name Collection Type:: Clean-Voided Midstream Performed By: #### ADDONUAPLUS, CUU, UHCG #### [facility] [address] [place], [place] [address] USALeukocyte esterase Test strip Ql (U)3+HighNegativeSt. Joseph'S Women'S Hospital Physician GroupComment on above:Order Comment: Name Collection Type:: Clean-Voided MidstreamPerformed By: #### ADDONUAPLUS, CUU, UHCG #### [facility] [address] [place] [address] USAMucus,Urine4+Critically abnormalSt. Joseph'S Women'S Hospital Physician GroupComment on above:Order Comment: Name Collection Type:: Clean-Voided MidstreamPerformed By: #### ADDONUAPLUS, CUU, UHCG #### [place] [address] USANitrite,UrineNegativeNormalNegativeThe [facility] Physician GroupComment on above:Order Comment: Name Collection Type:: Clean-Voided MidstreamPerformed By: #### ADDONUAPLUS, CUU, UHCG #### [place] [address] USAOccult Blood,Urine3+HighNegativeThe [facility] Physician GroupComment on above:Order Comment: Name Collection Type:: Clean-Voided MidstreamPerformed By: #### ADDONUAPLUS, CUU, UHCG #### [place] [address] USApH (U)8.0 [pH]Normal5.0-9.0The [facility] Comment on above:Order Comment: Name Collection Type:: Clean-Voided Midstream Performed By: #### ADDONUAPLUS, CUU, UHCG #### [place] [address] USAProtein (U) [Mass/Vol]100 mg/dLHighNegativeThe [facility] Physician GroupComment on above:Order Comment: Name Collection Type:: Clean- Voided MidstreamPerformed By: #### ADDONUAPLUS, CUU, UHCG #### [place] [address] USARBC,UrineInnumerableHigh0-4The [facility] Comment on above:Order Comment: Name Collection Type:: Clean-Voided Midstream Performed By: #### ADDONUAPLUS, CUU, UHCG #### [place] [address] USASpecificy [place],Urine1.487Krgusl7.001-1.030The [facility] Physician GroupComment on above:Order Comment: Name Collection Type:: Clean- Voided MidstreamPerformed By: #### ADDONUAPLUS, CUU, UHCG #### [place] [address] USASquamous Epithelial Cell,Urine1 [HPF]Normal0-2The [facility] Physician GroupComment on above:Order Comment: Name Collection Type:: Clean-Voided MidstreamPerformed By: #### ADDONUAPLUS, CUU, UHCG #### [facility] [address] [place] [address] USAUrobilinogen,Urine6 mg/dLHighNormalThBoundary Community Hospital Physician GroupComment on above:Order Comment: Name Collection Type:: Clean-Voided MidstreamPerformed By: #### ADDONUAPLUS, CUU, UHCG #### [place] [address] USAWBC,Urine50 [HPF]High0-4The [facility] Comment on above:Order Comment: Name Collection Type:: Clean-Voided Midstream Performed By: #### ADDONUAPLUS, CUU, UHCG #### [place] [address] USADrug Screen,Urineon 00-98-3135Emfxhrwjjar Screen,Urine NegativeNormalNegativeThe [facility] Physician GroupComment on above:Performed By: #### PAP [id number], GCCHLAMTRI #### [facility] , #### OBUDS #### [facility] [address] [place] [address] USABarbiturate Screen,UrineNegativeNormalNegativeThe [facility] Physician GroupComment on above:Performed By: #### PAP [id number], GCCHLAMTRI #### [facility] , #### OBUDS #### [facility] [address] [place], [place] [address] USABenzodiazepines Screen,UrineNegativeNormalNegativeThe [facility] Physician GroupComment on above:Performed By: #### PAP [id number], GCCHLAMTRI #### [facility] , #### OBUDS #### [facility] [address] [place] [address] USACannabinoid Screen,UrinePositiveHighNegativeThe [facility] Physician GroupComment on above:Result Comment: These are unconfirmed results and should not be used for legal purposes. Drug Cut-Off Concentration: AMPH 1000 ng/mL NIKOLAS 200 ng/mL SHRAVAN 200 ng/mL COCM 300 ng/mL OP 300 ng/mL PCP 25 ng/mL THC 20 ng/mL PERFORMED BY: [place] [address] PATHOLOGIST CUSTOMER FIELD REPRESENTATIVE IDANIA GODOY M.D.Performed By: #### PAP [id number], GCCHLAMTRI #### [facility] , #### OBUDS #### [place] [address] USACocaine Screen,UrineNegativeNormalNegativeThe [facility] Physician GroupComment on above:Performed By: #### PAP [id number], GCCHLAMTRI #### [facility] , #### OBUDS #### [place] [address] USAOpiate Screen,UrineNegativeNormalNegativeThe [facility] Physician GroupComment on above:Performed By: #### PAP 545891, GCCHLAMTRI #### [facility] , #### OBUDS #### [place] [address] USAPhencyclidine Screen,UrineNegativeNormalNegativeThe [facility] Physician GroupComment on above:Performed By: #### PAP [id number], GCCHLAMTRI #### [facility] , #### OBUDS #### [place] [address] USAECG 12 lead ECGon 83-43-0650PBL 12 lead ECGADENA [facility] Main [place] [address] [place] [address] Electrocardiograph Report Signed Patient: Pili Parikh MR#: [id number] 1526 : 2005 Acct:[id number] Age/Sex: 19 / F ADM Date: 10/28/24 Loc: ER Room: Type: [facility] ER Attending Dr: Ordering Provider: Rd [...] sinus rhythm Confirmed by Robert BOLANOS DO ([id number]) on 10/28/2024 9:48:18 PM Referred By: Electronically Signed By: Robert BOLANOS DO Transcribed By: MUS Signed By Robert Bolanos DO 1 12/29/23 2148[facility] Physician GroupEosinophils Auto (Bld) [#/Vol] Ordered By: Rd Brown on 30-88-5602Lbfwccuozcw (Bld) [#/Vol]Automated eosinophil count0.0-0.45Ohio[facility] Md, Cancer CenterEosinophils/100 WBC Auto (Bld)Ordered By: Rd Brown on 45-89-5041Vwehjirxekw/100 WBC (Bld) Automated eosinophil %.[facility], Cancer CenterEpithelial cells.squamous [#/area] in Urine sediment by Automated countOrdered By: Rd Brown on 53-71-9004Ufdemqhbad cells.squamous Auto (Urine sed) [#/Area]Epithelial cells.squamous [#/area] in Urine sediment by Automated count0-2FDayton Osteopathic HospitalErythrocyte distribution width Auto (RBC) [Ratio]Ordered By: Rd Brown on 02-88-2817Gxqzmcdjavm distribution width (RBC) [Ratio] Erythrocyte distribution width [Ratio] by Automated count11.9-15.3FDayton Osteopathic HospitalErythrocytes [#/area] in Urine sediment by Automated countOrdered By: Rd Brown on 47-46-3400JLM Auto (Urine sed) [#/Area] Erythrocytes [#/area] in Urine sediment by Automated countHigh04FDayton Osteopathic HospitalGlobulin Calc (S) [Mass/Vol]Ordered By: Rd Brown on 19-64-2085Qasneszn (S) [Mass/Vol]Serum globulin measurement by calculation (mass/volume)[facility], Cancer CenterGlucose [Mass/volume] in Serum or PlasmaOrdered By: Rd Brown on 91-84-0636Wxeozmv [Mass/Vol]Glucose [Mass/volume] in Serum or Ecxvfi71-333IzqgzignmOhiohealth Arthur G.H. Bing, Md, Cancer CenterComment on above:ADA recommended reference rangeRandom Glucose Reference Range is dependent on time and content of last meal. Glucose of more than 200 mg/dL in a nonstressed, ambulatory subject supports the diagnosisof Diabetes Mellitus. Glucose [Mass/volume] in Urine by Test stripOrdered By: Rd Brown on 26-15-1636Zwhtfhz Test strip (U) [Mass/Vol]Glucose [Mass/volume] in Urine by Test stripNormalOhiohealth Arthur G.H. Bing, Md, Cancer CenterHC ( test) IA.rapid Ql (U)Ordered By: Rd Brown on 91-70-5192YSM ( test) Ql (U)Urine human chorionic gonadotropin (hCG) detection by immunoassayOhiohealth Arthur G.H. Bing, Md, Cancer CenterHC,Urineon 07-57-2586Yxbb HCG ( test) Ql (U)Negative NormalThe [facility] Physician GroupComment on above:Order Comment: Name Collection Type:: Clean-Voided MidstreamResult Comment: PERFORMED BY: [facility] [address] [place] [address] PATHOLOGIST CUSTOMER FIELD REPRESENTATIVE IDANIA GODOY M.D.Performed By: #### ALIREZA RED [facility] #### [facility] [address] [place] [address] USAHematocrit Auto (Bld) [Volume fraction]Ordered By: Rd Brown on 04-47-1188Furrnsdmjt (Bld) [Volume fraction]Hematocrit [Volume Fraction] of Blood by Automated qlahvVkex05.0-46.4FDayton Osteopathic HospitalHemoglobin Test strip Ql (U)Ordered By: Rd Brown on 10-28-2024 Hemoglobin Ql (U)Hemoglobin [Presence] in Urine by Test stripHighNegative [facility], Cancer CenterHemoglobin [Mass/volume] in BloodOrdered By: Rd Brown on 93-85-0082Dujhrbumuu (Bld) [Mass/Vol]Hemoglobin [Mass/volume] in DclevUsiv70.8-15.4FDayton Osteopathic HospitalHepatic Panelon 10-28-2024 Albumin [Mass/Vol]5.4 g/dLNormal3.5-5.7The [facility] Physician GroupComment on above:Performed By: #### PAP [id number], GCCHLAMTRI #### [facility] , #### OBUDS #### [facility] [address] [place] [address] USAAlbumin/Globulin [Mass ratio]1.5 {ratio}NormalThe [facility] Physician GroupComment on above:Performed By: #### PAP [id number], GCCHLAMTRI #### [facility] , #### OBUDS #### [place] [address] USAALP [Catalytic activity/Vol]78 U/UXemisp77-830Eok [facility] Physician GroupComment on above:Performed By: #### PAP 114681, GCCHLAMTRI #### [facility] , #### OBUDS #### [facility] [address] [place] [address] USAALT [Catalytic activity/Vol]48 U/LNormal7-52The [facility] Physician GroupComment on above:Performed By: #### PAP [id number], GCCHLAMTRI #### [facility] , #### OBUDS #### [facility] [address] [place] [address] USAAST [Catalytic activity/Vol]30 U/EAgwyvo30-35Gts [facility] Physician GroupComment on above:Performed By: #### PAP [id number], GCCHLAMTRI #### [facility] , #### OBUDS #### [facility] [address] [place] [address] USABilirubin [Mass/Vol]1.1 mg/dLHigh0.3-1.0The [facility] Physician GroupComment on above:Performed By: #### PAP 170789, GCCHLAMTRI #### [facility] , #### OBUDS #### [place] [address] USABilirubin,Indirect0.9 mg/dLNoCentral Carolina Hospital Physician GroupComment on above:Performed By: #### PAP 248971, GCCHLAMTRI #### [facility] , #### OBUDS #### [place] [address] USABilirubin.indirect [Mass/Vol]0.20 mg/dLHigh0.03-0.18The [facility] Physician GroupComment on above:Performed By: #### PAP 929202, GCCHLAMTRI #### [facility] , #### OBUDS #### [place] [address] USAGlobulin (S) [Mass/Vol]3.5 g/dLNormMarietta Osteopathic Clinice [facility] Physician GroupComment on above:Performed By: #### PAP [id number], GCCHLAMTRI #### [facility] , #### OBUDS #### [place] [address] USAProtein [Mass/Vol]8.9 g/dLNormal6.4-8.9The [facility] Physician GroupComment on above:Performed By: #### PAP 991013, GCCHLAMTRI #### [facility] , #### OBUDS #### [place] [address] USAHyaline casts [#/area] in Urine sediment by Automated countOrdered By: Rd Brown on 32-61-8163Nlaawdq casts Auto (Urine sed) [#/Area]Hyaline casts [#/area] in Urine sediment by Automated countHigh0-8 [facility], Cancer CenterKetones Test strip Ql (U)Ordered By: Rd Brown on 88-14-7647Jojdhyc Ql (U)Ketones [Presence] in Urine by Test stripKettering Health Greene Memorial CenterLeukocyte esterase [Presence] in Urine by Test stripOrdered By: Rd Brown on 82-37-0879Rtwrgoswg esterase Test strip Ql (U)Leukocyte esterase [Presence] in Urine by Test stripHighNegativeOhiohealth Arthur G.H. Bing, Md, Cancer CenterLeukocytes [#/area] in Urine sediment by Automated count Ordered By: Rd Brown on 77-34-8227KMB Auto (Urine sed) [#/Area]Leukocytes [#/area] in Urine sediment by Automated countHigh0-4FDayton Osteopathic HospitalLeukocytes [#/volume] corrected for nucleated erythrocytes in Blood by Automated counOrdered By: Rd Brown on 45-13-0060HYA corrected for nucl RBC Auto (Bld) [#/Vol]Leukocytes [#/volume] corrected for nucleated erythrocytes in Blood by Automated counHigh3.8-11.6FDayton Osteopathic HospitalLipaseon 71-51-8681Xjdvpm [Catalytic activity/Vol]19.0 U/WFjnkyu37.0-82.0The [facility] Physician GroupComment on above:Result Comment: PERFORMED BY: [place] [address] PATHOLOGIST CUSTOMER FIELD REPRESENTATIVE IDANIA GODOY M.D.Performed By: #### PAP 585997, GCCHLAMTRI #### [facility] , #### OBUDS #### [place] [address] USALipase [Enzymatic activity/volume] in Serum or Plasma Ordered By: Rd Brown on 75-14-4490Ynkzmv [Catalytic activity/Vol]Lipase [Enzymatic activity/volume] in Serum or Ajqemc21.0-82.0[facility] Md, Cancer CenterLymphocytes Auto (Bld) [#/Vol]Ordered By: Rd Brown on 29-03-9462Perlhdnoist (Bld) [#/Vol]Lymphocytes [#/volume] in Blood by Automated count1.00-4.8[facility] Md, Cancer CenterLymphocytes/100 WBC Auto (Bld) Ordered By: Rd Brown on 83-35-5536Mnypgjmgxzd/100 WBC (Bld)Lymphocytes/100 leukocytes in Blood by Automated count.[facility] HospitalH Auto (RBC) [Entitic mass]Ordered By: Rd Brown on 55-81-9680LQN (RBC) [Entitic mass]MCH [Entitic mass] by Automated count24.7-34.3FParkview Health Montpelier HospitalHC Auto (RBC) [Mass/Vol]Ordered By: Rd Brown on 18-39-0625ZOMK (RBC) [Mass/Vol]MCHC [Mass/volume] by Automated count32.0-35.0[facility], Cancer CenterMCV Auto (RBC) [Entitic vol]Ordered By: Rd Brown on 10-28-2024 MCV (RBC) [Entitic vol]MCV [Entitic volume] by Automated lragz94-638KshwiffzzOhiohealth Arthur G.H. Bing, Md, Cancer CenterMonocyte distribution width [Entitic volume] in Blood by AutomatedOrdered By: Rd Brown on 62-83-8305Borncdkh distribution width Auto (Bld) [Entitic vol]Monocyte distribution width [Entitic volume] in Blood by Automated0.00-20.00[facility], Cancer CenterMonocytes Auto (Bld) [#/Vol] Ordered By: Rd Brown on 34-13-3385Hzcvngifn (Bld) [#/Vol]Automated blood monocyte countHigh0.0-0.8[facility], Cancer CenterMonocytes/100 WBC Auto (Bld)Ordered By: Rd Brown on 95-18-0859Nhobugrwm/100 WBC (Bld)Automated monocyte %.[facility], Cancer CenterMucus [Presence] in Urine by AutomatedOrdered By: Rd Brown on 89-06-8932Afqob Auto Ql (U)Mucus [Presence] in Urine by AutomatedAbnormalOhiohealth Arthur G.H. Bing, Md, Cancer CenterNeutrophils Auto (Bld) [#/Vol]Ordered By: Rd Brown on 81-16-3499Rgicatwtfdr (Bld) [#/Vol] Neutrophils [#/volume] in Blood by Automated countHigh1.8-7.7FDayton Osteopathic HospitalNeutrophils/100 WBC Auto (Bld)Ordered By: Rd Brown on 31-75-2161Dhveojgtohw/100 WBC (Bld)Automated neutrophil %.[facility] Medical CenterNitrite Test strip Ql (U)Ordered By: Rd Brown on 10-28-2024 Nitrite Ql (U)Nitrite [Presence] in Urine by Test stripNegativeOhiohealth Arthur G.H. Bing, Md, Cancer CenterNo Panel InformationOrdered By: Rd Brown on 81-64-3012Suobmndch GFR (CKD-EPI)> 60.0 mL/MinOhiohealth Arthur G.H. Bing, Md, Cancer Center Pharmacy Creatinine Clearance (Aeyi849.62[facility] Nucleated erythrocytes [Presence] in Blood by Automated countOrdered By: Rd Brown on 57-79-0237Zypvwhvts RBC Auto Ql (Bld)Nucleated erythrocytes [Presence] in Blood by Automated count0-0.5FDayton Osteopathic HospitalOpiates [Presence] in Urine by Screen methodOrdered By: Rd Brown on 10-28-2024 Opiates Screen Ql (U)Opiates [Presence] in Urine by Screen methodNegative [facility] Cancer CenterPhencyclidine Screen Ql (U)Ordered By: Rd Brown on 05-18-4937Ofhwkcspqrhgl Ql (U)Phencyclidine [Presence] in Urine by Screen methodNegativeOhiohealth Arthur G.H. Bing, Md, Cancer CenterPlatelet mean volume Auto (Bld) [Entitic vol]Ordered By: Rd Brown on 87-05-9858Eplaocat mean volume (Bld) [Entitic vol]Platelet mean volume [Entitic volume] in Blood by Automated count6.3-10.7FDayton Osteopathic HospitalPlatelets Auto (Bld) [#/Vol] Ordered By: Rd Brown on 09-66-1960Enmmpnoiq (Bld) [#/Vol]Platelets [#/volume] in Blood by Automated fvwyz178-435LhteuimvdOhiohealth Arthur G.H. Bing, Md, Cancer Center Potassiumon 34-97-4204Nwafattdg [Moles/Vol]2.9 mmol/LOff scale low3.5-5.1The [facility] Physician GroupComment on above:Result Comment: Critical Result Called to and read back by: RYLAN BELL at: 10/28/2024 23:09:11 by:MO PERFORMED BY: [address] [address] PATHOLOGIST CUSTOMER FIELD REPRESENTATIVE IDANIA GODOY M.D.Performed By: #### K #### [address] [place] [address] USAPotassium [Moles/volume] in Serum or PlasmaOrdered By: Rd Brown on 83-42-2595Fipyftjjj [Moles/Vol]Potassium [Moles/volume] in Serum or PlasmaCritically low3.5-5.1FDayton Osteopathic HospitalComment on above:Critical Result Called to and read back by: RYLAN BELL at: 10/28/2024 23:09:11 by:DHProtein Test strip (U) [Mass/Vol]Ordered By: Rd Brown on 41-25-0123Ntpgijg (U) [Mass/Vol]Protein [Mass/volume] in Urine by Test stripHigh NegativeOhiohealth Arthur G.H. Bing, Md, Cancer CenterProtein [Mass/volume] in Serum or PlasmaOrdered By: Rd Brown on 96-49-6615Cwqfsgo [Mass/Vol]Protein [Mass/volume] in Serum or Plasma6.4-8.9[facility] Md, Cancer CenterRBC Auto (Bld) [#/Vol]Ordered By: Rd Brown on 86-06-5523ZAX (Bld) [#/Vol] Erythrocytes [#/volume] in Blood by Automated countHigh3.60-5.00Genesis Hospitalerum or plasma albumin/globulin mass ratioOrdered By: Rd Brown 16-42-8289Swzxblt/Globulin [Mass ratio]Serum or plasma albumin/globulin mass ratioGenesis Hospitalerum or plasma anion gap determinationOrdered By: Rd Brown 16-69-6895Cagfl gap [Moles/Vol]Serum or plasma anion gap determinationHigh6.0-15.0Genesis Hospitalerum or plasma non-glucuronidated bilirubin measurement (mass/volume)Ordered By: Rd Brown on 97-79-3132Ujitmsuqc.indirect [Mass/Vol] Serum or plasma non-glucuronidated bilirubin measurement (mass/volume)Genesis Hospitalodium [Moles/volume] in Serum or PlasmaOrdered By: Rd Brown on 69-57-3471Kmazow [Moles/Vol]Sodium [Moles/volume] in Serum or Okbklo194-384XufmkggyvGenesis Hospitalpecific gravity Test strip (U) [Rel density]Ordered By: Rd Brown on 15-21-1039Khwxxrzz gravity (U) [Rel density]Specific gravity of Urine by Test strip1.001-1.030[facility] Md, Cancer CenterUrea nitrogen [Mass/volume] in Serum or PlasmaOrdered By: Rd Brown on 43-38-7686Yone nitrogen [Mass/Vol]Urea nitrogen [Mass/volume] in Serum or Plasma7-25[facility] Md, Cancer CenterUrine Cultureon 50-81-0180Ggquxyyt identified Cx Nom (U)75,000 colonies/ml mixed bacterial skin contaminants 2 Days PERFORMED BY: [place] [address] PATHOLOGIST CUSTOMER FIELD REPRESENTATIVE IDANIA GODOY M.D.NormalSt. Joseph'S Women'S Hospital Physician GroupComment on above: Performed By: #### ALIREZA RED TrinidadG #### [place] [address] USAUrine cultureOrdered By: Rd Brown on 10-28-2024 Bacteria identified Cx Nom (U)Urine cultureOhiohealth Arthur G.H. Bing, Md, Cancer Center Urobilinogen Test strip (U) [Mass/Vol]Ordered By: Rd Brown on 10-28-2024 Urobilinogen (U) [Mass/Vol]Urobilinogen [Mass/volume] in Urine by Test stripHigh NormalOhiohealth Arthur G.H. Bing, Md, Cancer CenterWBC Auto (Bld) [#/Vol]Ordered By: Rd Brown on 35-68-9274IOZ (Bld) [#/Vol]Leukocytes [#/volume] in Blood by Automated countHigh3.8-11.6FDayton Osteopathic HospitalpH Test strip (U)Ordered By: Rd Brown on 29-70-1735pF (U)pH of Urine by Test strip5.0-9.0[facility], Cancer CenterActivated partial thromboplastin time (aPTT) in platelet poor plasma by coagulation aOrdered By: Ania Watson on 01-95-4919zZVD Coag (PPP) [Time]24.7 sLow25.1-36.5FDayton Osteopathic HospitalComment on above: A hematocrit value greater than 55% may lead to inaccurate results in coagulation testing. Patientshaving hematocrit values >55% require a special collection tube for coagulation studies. Please contact the laboratory at [phone] for redraw instructions.Calcium [Mass/volume] in Serum or Plasma Ordered By: Ania Watson on 53-35-4985Prifcle [Mass/Vol]9.6 mg/dL8.6-10.3 [facility], Cancer CenterCarbon dioxide, total [Moles/volume] in Serum or PlasmaOrdered By: Ania Watson on 32-37-4970TG1 [Moles/Vol]18.5 mmol/LLow 21.0-31.0[facility] Md, Cancer CenterChloride [Moles/volume] in Serum or PlasmaOrdered By: Ania Watson on 72-97-6672Cibylkeu [Moles/Vol]99 mmol/L 98-107Ohio[facility] Md, Cancer CenterCreatine kinase [Enzymatic activity/volume] in Serum or PlasmaOrdered By: Ania Watson on 06-63-4343QP [Catalytic activity/Vol]33 U/F38-483OovbpdorzOhiohealth Arthur G.H. Bing, Md, Cancer CenterCreatinine [Mass/volume] in Serum or PlasmaOrdered By: Ania Watson on 08-03-2024 Creatinine [Mass/Vol]0.61 mg/dL0.60-1.20[facility] Md, Cancer CenterGlucose [Mass/volume] in Serum or PlasmaOrdered By: Ania Watson on 75-74-5874Wfdwdcw [Mass/Vol]91 mg/dT38-264YbbtbvekmOhiohealth Arthur G.H. Bing, Md, Cancer CenterComment on above:ADA recommended reference rangeRandom Glucose Reference Range is dependent on time and content of last meal. Glucose of more than 200 mg/dL in a nonstressed, ambulatory subject supports the diagnosisof Diabetes Mellitus.INR in Platelet poor plasma by Coagulation assayOrdered By: Ania Watson on 45-58-7201IWM Coag (PPP) [Relative time]1.2 {INR}[facility], Md, Cancer CenterComment on above:INR Therapeutic Range A) Pre- and Peroperative OAT started two weeks before surgery. NOT HIP SURGERY: 1.5 - 2.5 HIP SURGERY: 2 - 3B) Primary and secondary prevention of venous THROMBOSIS: 2 - 3C) Active venous thrombosis, pulmonary embolismand prevention of recurrent venous thrombosis: 2 - 3D) Preve ntion of arterial thromboembolismincluding patients with mechanical heart valves: 3 - 4.5Natriuretic peptide B [Mass/Vol]Ordered By: Ania Watson on 67-03-1724Ucinbpdcrpj peptide B (Bld) [Mass/Vol]19.0 pg/mL5-100Ohio[facility], Cancer CenterNo Panel InformationOrdered By: Ania Watson on 24-40-2353Dlyjspauu GFR (CKD-EPI)> 60.0 mL/MinOhiohealth Arthur G.H. Bing, Md, Cancer Center Pharmacy Creatinine Clearance (Ogxx096.09[facility] Potassium [Moles/volume] in Serum or PlasmaOrdered By: Ania Watson on 66-73-8769Bkijacycx [Moles/Vol]3.5 mmol/L3.5-5.1FDayton Osteopathic HospitalComment on above:Hemolysis is present at a level that could interfere with the result.Contact lab if redraw is requiredProthrombin time (PT)Ordered By: Ania Watson on 50-59-5005BG Coag (PPP) [Time]13.3 sHigh9.0-12.9Ohio[facility] Md, Cancer CenterComment on above:A hematocrit value greater than 55% may lead to inaccurate results in coagulation testing. Patientshaving hematocrit values >55% require a special collection tube for coagulation studies. Please c ontact the laboratory at [phone] for redraw instructions.Serum or plasma anion gap determinationOrdered By: Ania Watson on 07-92-8303Usamz gap [Moles/Vol]20.0 mmol/LHigh6.0-15.0Genesis Hospitalodium [Moles/volume] in Serum or PlasmaOrdered By: Ania Watson on 01-65-6797Nviyoo [Moles/Vol]134 mmol/BVac725-039MijavstigOhiohealth Arthur G.H. Bing, Md, Cancer CenterTroponin I.cardiac [Mass/volume] in Serum or Plasma by Detection limit <= 0.01 ng/Ordered By: Ania Watson on 76-51-4658Qnocqstg I.cardiac DL <= 0.01 ng/mL [Mass/Vol] 7.0 pg/mL0.0-15.0[facility], Cancer CenterUrea nitrogen [Mass/volume] in Serum or PlasmaOrdered By: Ania Watson on 86-99-0975Batl nitrogen [Mass/Vol] 20 mg/dL7-25Ohio[facility], Cancer CenterB hCG Qualon 99-37-4162Ypfz HCG ( test) QlNegativeNormalMercy HealthComment on above: Performed By: #### [id number] #### [facility] [address] [place], [place] [address]ETHkz 82-95-7672Nsfty gap [Moles/Vol]14 mmol/LNormal6-16Mercy HealthComment on above:Performed By: #### [id number] #### [facility] [address] [place], [place] [address]Kpculim [Mass/Vol]9.7 mg/dLNormal8.9-11.1FPomerene HospitalComment on above:Performed By: #### [id number] #### [facility] [address] [place], [place] [address]Pbbxgmpu [Moles/Vol]102 mmol/HClmxvd299-981FvnkkvMercy HealthComment on above:Performed By: #### [id number] #### [facility] [address] [place], [place] [address]CK3 [Moles/Vol]24 mmol/RVmjcrh01-28CduijpMercy Health Comment on above:Performed By: #### [id number] #### [facility] [address] [place], [place] [address]Iclohlowsn [Mass/Vol]0.7 mg/dLNormal0.5-1.3FPomerene HospitalComment on above:Performed By: #### [id number] #### [facility] [address] [place], [place] [address]Wbvkxnk [Mass/Vol]96 mg/aJPmlvmu13-411DetpukMercy HealthComment on above:Performed By: #### [id number] #### [facility] [address] [place], [place] [address]Hhdmudlxw [Moles/Vol]3.3 mmol/LLow3.5-5.3FPomerene HospitalComment on above:Performed By: #### [id number] #### [facility] [address] [place], [place] [address]Dxlkuh [Moles/Vol]137 mmol/FRcfcfy384-139TvffiyMercy HealthComment on above:Performed By: #### [id number] #### [facility] [address] [place], [place] [address]Eavb nitrogen [Mass/Vol]18 mg/dLNormal5-21Mercy HealthComment on above:Performed By: #### [id number] #### [facility] [address] [place], [place] [address]Hute nitrogen/Creatinine [Mass ratio]26 No NdottUiyo81-63HdlylbMercy HealthComment on above:Performed By: #### [id number] #### [facility] [address] [place], [place] [address]PEO w/ Auto Diffon 11-71-8314Dluwbhncg/100 WBC (Bld)0.3 %Normal 0.0-2.0Mercy HealthComment on above:Performed By: #### [id number] #### [facility] [address] [place], [place] [address]Jrezwmgif/Leukocytes Auto (Bld) [Pure # fraction]0.1 E9/LNormal 0.0-0.2FPomerene HospitalComment on above:Performed By: #### [id number] #### [facility] [address] [place] [address]Hdysepgqzdm (Bld) [#/Vol]0.1 E9/LNormal0.0-0.5FPomerene HospitalComment on above:Performed By: #### [id number] #### [facility] [address] [place], [place] [address]Ydxzbxjckqo/100 WBC (Bld)0.4 %Normal0.0-8.0Mercy HealthComment on above:Performed By: #### [id number] #### [facility] [address] [place], [place] [address]Ibjlmkqaifp distribution width (RBC) [Ratio]13.3 %Normal 10.9-14.2FPomerene HospitalComment on above:Performed By: #### [id number] #### [facility] [address] [place] [address]Qvggxlsyjl (Bld) [Volume fraction]43.9 %Pekhls49.0-46.0Mercy HealthComment on above:Performed By: #### [id number] #### [facility] [address] [place] [address]Zblwyszsez (Bld) [Mass/Vol]14.5 g/jUBklpnl03.0-16.0Mercy HealthComment on above:Performed By: #### [id number] #### [facility] [address] [place] [address]Iugoqkpsyml (Bld) [#/Vol]2.3 E9/LNormal1.0-4.0Mercy HealthComment on above:Performed By: #### [id number] #### [facility] [address] [place] [address]Ggpimyvlppq/100 WBC (Bld)13.7 %Low14.0-50.0Mercy HealthComment on above:Performed By: #### [id number] #### [facility] [address] [place] [address]JTT (RBC) [Entitic mass]28.3 mmSxftfh25.0-34.0Mercy HealthComment on above:Performed By: #### [id number] #### [facility] [address] [place] [address]SUTM (RBC) [Mass/Vol]33.0 g/yLIwoyxp57.4-36.0Mercy HealthComment on above:Performed By: #### [id number] #### [facility] [address] [place] [address] 116[address]PQY (RBC) [Entitic vol]85.8 zETzrdms22.0-100.0Mercy HealthComment on above:Performed By: #### [id number] #### [facility] [address] [place] [address]Xhvkznmhx (Bld) [#/Vol]1.2 E9/LHigh0.2-1.0Mercy HealthComment on above:Performed By: #### [id number] #### [facility] [address] [place] [address]Iuxolwpdoqo (Bld) [#/Vol]13.1 E9/LHigh2.0-7.5FPomerene HospitalComment on above:Performed By: #### [id number] #### [facility] [address] [place] [address]Spjfxygvjhr/100 WBC (Bld)78.5 %High36.0-75.0Mercy HealthComment on above:Performed By: #### [id number] #### [facility] [address] [place] [address]Jmbsooxb mean volume (Bld) [Entitic vol]8.2 fLNormal6.4-10.8 Mercy HealthComment on above:Performed By: #### [id number] #### [facility] [address] [place] [address]Xnykdvjwo (Bld) [#/Vol]246.0 E9/NVkfjwg179.0-500.0Mercy HealthComment on above:Performed By: #### [id number] #### [facility] [address] [place] [address]THR (Bld) [#/Vol]5.1 E12/LNormal4.3-5.9Mercy HealthComment on above:Performed By: #### [id number] #### [facility] [address] [place] [address]UZM corrected for nucl RBC Auto (Bld) [#/Vol]16.7 E9/LHigh 4.0-11.0Mercy HealthComment on above:Result Comment: Peripheral smear review performed.Performed By: #### [id number] #### [facility] [address] [place], [place] [address]AI Clinical Summaryon [id number] Clinical SummaryED Clinical Summary [address] [address] ED Clinical Summary Person Information Name: PILI PARIKH/[place] Age: 19 Years : 2005 Sex: Female Language: Guyanese PCP: MODESTA CHAND CNP Marital Status: Single [...] 08/01/2024 12:09:48 08/01/2024 12:09:48 ADDRESS: [address] [facility] [id number] PHYS DOC NOTES: MEDICAL INFORMATION: Prescriptions Given: New Medications [id number], [address] [place], [place] [id number], [phone] potassium chloride (potassium chloride 20 mEq ER [...] Follow up: With: Address: When: MODESTA CHAND [address] [place] [phone] [facility] (1) In 3 days 08/04/2024 Comments: Make sure to fill the prescriptions that was prescribed from [facility]. Fill the new prescription for potassium. Follow-up with your primary doctor as discussed. Return to the emergency room if your vomiting recurs, abdominal pain recurs or any new symptoms. DIAGNOSIS: 1:Vomiting and diarrhea; 2:Hypokalemia; 3:Leukocytosis; Diarrhea, unspecified [facility] CenterED Note-Physicianon 17-27-0170GB Note-Physician ED Note-Physician Basic Information Time Seen: August Bermudez M.D. 08/01/2024 09:27 Chief Complaint just left [place] [facility], seen multiple times for n/v lightheaded. hx cyclic vomiting, state its not that. has medication at [facility] but wanted to come here instead [...] her symptoms started. The diarrhea has stopped. Shedenies any black or bloody stool. The patient denies any fever, denies any chills. She reports dizziness when standing. The patient reports no shortness of breath. She reports some chest pain from vomiting. The patient denies any bad food. She denies any recent traveling. The patient denies any sick contact. The patient was at [facility] and they did send medication to [facility] however she feels she is dehydrated. [...] and Complexity of Problems Differential Diagnosis: [] [facility] Data External documents reviewed: [] My EKG [...] given by [facility] and filled a new prescr iption for potassium. She is instructed to follow-up [...] Stop date 08/01/24 10:03:00 EDT, STAT, Start date08/01/24 10:03:00 EDT, 08/01/24 10:03:00 EDT ondansetron, 4 mg = 2 mL, Injection, IV Push, Once, Stop date 08/01/24 10:03:00 EDT, STAT, Start date 08/01/24 10:03:00 EDT, 08/01/24 10:03:00 EDT potassium chloride, 20 mEq = 1 tab(s), Oral, BID, X 2 day(s), # 4 tab(s), Refills(s) 0, Pharmacy: [id number], 157, cm, 08/01/24 9:34:00 EDT, Height/Length Dosing, 95.1, kg, 08/01/24 9:34:00 EDT, Weight Dosing Sodium Chloride 0.9% intravenous solution, 2,000 mL, Soln-IV, IV, Once, Stop date 08/01/24 10:03:00EDT, STAT, Start date 08/01/24 10:03:00 EDT, Infuse [...] improved Discharge Disposition Dis (more content not included)...[facility]riners HospitalComment on above:Result Comment: Electronically Signed By: August Bermudez M.D.\.br\Date and Time Signed: 08/01/2411:58 EDTED Patient Summaryon [id number] Patient SummaryED Patient Summary [address] [address] Patient Discharge Instructions Person Information Name: PILI PARIKH Age: 19 Years Arrival Date: 08/01/2024 09:23:00 Discharge Diagnosis: 1:Vomiting and diarrhea; 2:Hypokalemia; 3:Leukocytosis; Diarrhea, unspecified Primary Care Physician: MODESTA CHAND CNP Provider Information Primary Provider: August Bermudez M.D. Advanced Bus Attendant:None The exam and treatment you received in the Emergency Department were for an urgent problem and are not intended as complete care. It is important that you follow up with a doctor, nurse practitioner,or physician?s trust manager assistant for ongoing care. If your symptoms become worse or you do not improve as expected and you are unable to reach your usual health care provider, you should return to the Emergency Department. We are available 24 hours a day. PILI PARIKH has been given the following list of patient education materials, prescriptions andfollow-up instructions: Follow-up Instructions: With: Address: When: MODESTA CHAND [address] [place] [phone] Business (1) In 3 days 08/04/2024 Comments: Make sure to fill the prescriptions that was prescribed from [facility]. Fill the new prescription for potassium. Follow-up [...] opioids can be used to help relieve hxfiddec-es-icklhg pain and are often prescribed following a [...] and have fewer risks and side effects. Optionsmay include: ? Pain relievers such as acetaminophen, [...] unused prescription opioids: Find your community drug take- back program or [place] mail-back program, or flush them down the to (more content not included)...NormalMercy HealthHep Func Panelon 69-05-6377Tvjjaeh [Mass/Vol]5.1 g/dLHigh3.3-5.0[facility] Comment on above:Performed By: #### [id number] #### [facility] [address] [place], [place] [address]Wgrrlas/Globulin (S) [Mass conc ratio]1.5Dgycon9.1-2.2FPomerene HospitalComment on above:Performed By: #### [id number] #### [facility] [address] [place], [place] [address]WZJ [Catalytic activity/Vol]75 Int._Unit/KZjherz51-04ZctucjMercy HealthComment on above:Performed By: #### [id number] #### [facility] [address] [place], [place] [address]SRX No additional P-5'-P [Catalytic activity/Vol]45 Int._Unit/L Normal6-46Mercy HealthComment on above:Performed By: #### [id number] #### [facility] [address] [place], [place] [address]XDF [Catalytic activity/Vol]25 Int._Unit/LNormal5-43Mercy HealthComment on above:Performed By: #### [id number] #### [facility] [address] [place], [place] [address]Eroefrubk [Mass/Vol]0.9 mg/dLNormal0.0-1.1FPomerene HospitalComment on above:Performed By: #### [id number] #### [facility] [address] [place], [place] [address]Ibsgodfkh.direct [Mass/Vol]0.1 mg/dLNormal0.0-0.4FPomerene HospitalComment on above:Performed By: #### [id number] #### [facility] [address] [place] [address]Hkxpqskcd.indirect [Mass or moles/Vol]0.8 mg/dLNormal0.1-0.9 Mercy HealthComment on above:Performed By: #### [id number] #### [facility] [address] [place] [address]Kpkhiztd (S) [Mass/Vol]3.0 g/dLNormal1.4-4.0Mercy HealthComment on above:Performed By: #### [id number] #### [facility] [address] [place] [address]Ntqzvhe [Mass/Vol]8.1 g/dLHigh6.0-7.8Mercy HealthComment on above:Performed By: #### [id number] #### [facility] [address] [place], [place] [address]Cssabj Levelon 72-26-0210Dynkxu [Catalytic activity/Vol]27 U/L Jgjqhw82-35KnyvffMercy HealthComment on above:Performed By: #### [id number] #### [facility] [address] [place], [place] [address]Amccdsmelrk 74-58-6472Uqkdgykyy [Mass/Vol]2.2 mg/dLNormal 1.3-2.4FPomerene HospitalComment on above:Performed By: #### [id number] #### [facility] [address] [place], [place] [address]HZ & PTTon 68-60-2489mBEN Coag (PPP) [Time]31.2 second(s)Normal 25.1-36.5Freilly [facility] Joseph Medical CenterComment on above:Result Comment: Parameter 15 days - 4 weeks [...] same coagulation reagent and instrumentation as [facility]. Currently there are no coagulation studies available worldwide for children to 14 days, andno normal ranges. Heparin therapeutic range (represented by Anti-Factor Xa activity of 0.2 - 0.4 U/mL) corresponds to PTT of 56.6 - 109.0 sec.Performed By: #### [id number] #### Christophe [facility] [address] [place], [place] [address]IXR Coag (PPP) [Relative time]1.11 {INR}Invalid Interpretation CodeGinoWestern Maryland Hospital CenterComment on above:Result Comment: INR results are specifically intended to assess patients stabilized on long-term Anticoagulation therapy suggested INR?s ?Less Intensive Anticoagulation? 2.0 ? 3.0 Conventional Range 3.0 ? 4.5Performed By: #### [id number] #### Christophe [facility] [address] [place], [place] [address]JC Coag (PPP) [Time]12.5 second(s)Normal9.4-12.5Freilly [facility] Medical CenterComment on above:Result Comment: 15 days - 4 weeks 1 [...] same coagulation reagent and instrumentation as [facility]. Currently there are no coagulation studies available worldwide for children to 14 days, andno normal ranges.Performed By: #### [id number] #### [facility] [address] [place], [place] [address]Ktnhxcgv 0 Hr.on 69-93-3379Daukyjio HS5.20 pg/mLLow10.10-27.10 Mercy HealthComment on above:Result Comment: The 95% CI (Confidence Interval) PPV (Positive Predictive Value) for myocardial infarction in females is 38 pg/mL, in males 51 pg/mL. The results should be used in conjunction with clinical conditions of myocardial infarction. (Access High Sensitivity Troponin I Instructions For Use, [place], June 2018)Performed By: #### [id number] #### [facility] [address] [place], [place] [address]yBJQmn 08-07-4825gFNF687 mL/min/1.73 v3Awsadd>=59Mercy HealthComment on above:Order Comment: Order added by Discern Expert. Performed By: #### [id number] #### [facility] [address] [place], [place] [address]BROvr 49-95-8088Famak gap [Moles/Vol]13 mmol/LNormal6-16Mercy HealthComment on above:Performed By: #### [id number] #### [facility] [address] [place], [place] [address]Oqpopyc [Mass/Vol]9.4 mg/dLNormal8.9-11.1FPomerene HospitalComment on above:Performed By: #### [id number] #### [facility] [address] [place], [place] [address]Llrkzcrt [Moles/Vol]107 mmol/UWjeckh628-627IcgrrbMercy HealthComment on above:Performed By: #### [id number] #### [facility] [address] [place], [place] [address]WW9 [Moles/Vol]25 mmol/ALsfiun87-62RvxliiMercy Health Comment on above:Performed By: #### [id number] #### Saeed [facility] [address] [place], [place] [address]Ofetydqxuy [Mass/Vol]0.8 mg/dLNormal0.5-1.3FPomerene HospitalComment on above:Performed By: #### [id number] #### [facility] [address] [place], [place] [address]Tqvvbao [Mass/Vol]89 mg/vRMgybyr50-364YucjnrMercy HealthComment on above:Performed By: #### [id number] #### [facility] [address] [place], [place] [address]Eepsjwtef [Moles/Vol]3.6 mmol/LNormal3.5-5.3FPomerene HospitalComment on above:Performed By: #### [id number] #### [facility] [address] [place], [place] [address]Sbtbey [Moles/Vol]141 mmol/WKosext712-982SxxiukMercy HealthComment on above:Performed By: #### [id number] #### [facility] [address] [place], [place] [address]Kcoq nitrogen [Mass/Vol]19 mg/dLNormal5-21Mercy HealthComment on above:Performed By: #### [id number] #### [facility] [address] [place], [place] [address]Lwzt nitrogen/Creatinine [Mass ratio]24 No AmttsPkaz84-03AiujzuMercy HealthComment on above:Performed By: #### [id number] #### [facility] [address] [place], [place] [address]NKL w/ Auto Diffon 63-42-6188Csctauikd/100 WBC (Bld)0.4 %Normal 0.0-2.0Mercy HealthComment on above:Performed By: #### [id number] #### [facility] [address] [place] [address]Xwqddkxrc/Leukocytes Auto (Bld) [Pure # fraction]0.1 E9/LNormal 0.0-0.2FPomerene HospitalComment on above:Performed By: #### [id number] #### [facility] [address] [place] [address]Mbqghetspxo (Bld) [#/Vol]0.1 E9/LNormal0.0-0.5FPomerene HospitalComment on above:Performed By: #### [id number] #### [facility] [address] [place] [address]Snomiqoedex/100 WBC (Bld)0.5 %Normal0.0-8.0Mercy HealthComment on above:Performed By: #### [id number] #### [facility] [address] [place] [address]Zaoeuqicklw distribution width (RBC) [Ratio]13.2 %Normal 10.9-14.2FPomerene HospitalComment on above:Performed By: #### [id number] #### [facility] [address] [place] [address]Lcgufspjxq (Bld) [Volume fraction]39.6 %Zaqixh16.0-46.0Mercy HealthComment on above:Performed By: #### [id number] #### [facility] [address] [place] [address]Btdjdjkwuc (Bld) [Mass/Vol]13.7 g/uONmhtvu20.0-16.0Mercy HealthComment on above:Performed By: #### [id number] #### [facility] [address] [place] [address]Capwwlkjsxa (Bld) [#/Vol]2.3 E9/LNormal1.0-4.0Mercy HealthComment on above:Performed By: #### [id number] #### [facility]aeed [facility] [address] [place] [address]Mmmiahjtpew/100 WBC (Bld)14.1 %Fvwgnd18.0-50.0Mercy HealthComment on above:Performed By: #### [id number] #### Saeed [facility] [address] [place] [address]CSB (RBC) [Entitic mass]29.4 ogMslxhv83.0-34.0Mercy HealthComment on above:Performed By: #### [id number] #### [facility] [address] [place] [address]OLCE (RBC) [Mass/Vol]34.5 g/wANswuhw90.4-36.0Mercy HealthComment on above:Performed By: #### [id number] #### [facility]ed [facility] [address] [place] [address]RYE (RBC) [Entitic vol]85.3 aGMsvzou63.0-100.0Mercy HealthComment on above:Performed By: #### [id number] #### [facility] [address] [place] [address]Rrwlnmxku (Bld) [#/Vol]1.2 E9/LHigh0.2-1.0Mercy HealthComment on above:Performed By: #### [id number] #### [facility] [address] [place] [address]Wipytowkroz (Bld) [#/Vol]12.6 E9/LHigh2.0-7.5FPomerene HospitalComment on above:Performed By: #### [id number] #### [facility]aeed [facility] [address] [place] [address]Aunqrpsfcbm/100 WBC (Bld)77.5 %High36.0-75.0Mercy HealthComment on above:Performed By: #### [id number] #### [facility] [address] [place], [place] [address]Sntbmquc409.0 E9/TEzvxpm613.0-500.0[facility] Comment on above:Performed By: #### [id number] #### [facility] [address] [place], [place] [address]Ypkisnjr mean volume (Bld) [Entitic vol]8.1 fLNormal6.4-10.8 Mercy HealthComment on above:Performed By: #### [id number] #### [facility] [address] [place], [place] [address]UOI (Bld) [#/Vol]4.7 E12/LNormal4.3-5.9Mercy HealthComment on above:Performed By: #### [id number] #### [facility] [address] [place], [place] [address]JDX corrected for nucl RBC Auto (Bld) [#/Vol]16.2 E9/LHigh 4.0-11.0Mercy HealthComment on above:Performed By: #### [id number] #### [facility] [address] [place] [address]RJARAWLYVHsgeann By: Manish Sales on 43-02-7783Jinlhhe [Mass/Vol]4.7 g/dLNormal3.3 - 5.0 gm/dLRemisol ChemAlbumin/Globulin [Mass ratio] 1.7 {ratio}Normal1.1 - 2.2Remisol ChemALP [Catalytic activity/Vol]73 [iU]/d Hwefpy19 - 98 Int._Unit/LRemisol ChemALT No additional P-5'-P [Catalytic activity/Vol]46 [iU]/dNormal6 - 46 Int._Unit/LRemisol ChemAnion gap [Moles/Vol] 13 mmol/LNormal6 - 16 mEq/LRemisol ChemAST [Catalytic activity/Vol]24 [iU]/d Normal5 - 43 Int._Unit/LRemisol ChemBilirubin [Mass/Vol]0.7 mg/dLNormal0.0 - 1.1 mg/dLRemisol ChemBilirubin.direct [Mass/Vol]0.1 mg/dLNormal0.0 - 0.4 mg/dL Remisol ChemBilirubin.indirect [Mass or moles/Vol]0.6 mg/dLNormal0.1 - 0.9 mg/dL Remisol ChemCalcium [Mass/Vol]9.4 mg/dLNormal8.9 - 11.1 mg/dLRemisol Chem Chloride [Moles/Vol]107 mmol/NObtuvo878 - 111 mmol/LRemisol ChemCO2 [Moles/Vol] 25 mmol/TZmptic03 - 31 mmol/LRemisol ChemCreatinine [Mass/Vol]0.8 mg/dLNormal0.5 - 1.3 mg/dLRemisol XzofwIUZ248 mL/min/1.73 u7Sbfvuz>=59mL/min/1.73 u3Xujbcxx ChemGlobulin (S) [Mass/Vol]2.8 g/dLNormal1.4 - 4.0 gm/dLRemisol ChemGlucose [Mass/Vol]89 mg/xEIlxoro63 - 199 mg/dLRemisol ChemLipase [Catalytic activity/Vol]10 U/LLow13 - 58 unit/LRemisol ChemMagnesium [Mass/Vol]2.2 mg/dL Normal1.3 - 2.4 mg/dLRemisol ChemPotassium [Moles/Vol]3.6 mmol/LNormal3.5 - 5.3 mmol/LRemisol ChemProtein [Mass/Vol]7.5 g/dLNormal6.0 - 7.8 gm/dLRemisol Chem Sodium [Moles/Vol]141 mmol/MLpeaov416 - 145 mmol/LRemisol ChemUrea nitrogen [Mass/Vol]19 mg/dLNormal5 - 21 mg/dLRemisol ChemUrea nitrogen/Creatinine [Mass ratio]24 mg/pjDnwh95 - 20Remisol ChemED Clinical Summaryon [id number] Clinical SummaryED Clinical Summary [address] [address] ED Clinical Summary Person Information Name: PILI PARIKH/[place] Age: 19 Years : 2005 Sex: Female Language: Guyanese PCP: MODESTA ARCHIBALD Marital Status: Single Visit [...] 07/30/2024 22:55:49 07/30/2024 22:55:49 07/30/2024 22:55:49 ADDRESS: [address] [place] [id number] PHYS DOC NOTES: MEDICAL INFORMATION: Prescriptions Given: New Medications [facility]/pharmacy #[id number], [address] [place], [place] [id number], [phone] ondansetron (Zofran ODT 4 mg Tab-Dis) 1 Tablets By Mouth every 8 hours as needed Nausea/Vomiting. Refills: 0. Medications to Continue Taking That Have Changed [facility]/pharmacy #[id number], [address] [place], [place] [id number], [phone] START: promethazine (Phenergan 12.5 mg Supp) 1 [...] Adult Follow up: With: Address: When: FAMILIA ROSESON [facility] [address] [address] Business (1) In 3 days 08/02/2024 DIAGNOSIS: AP (abdominal pain); N&V (nausea and vomiting)[facility] ED Note-Physicianon [id number] Note-PhysicianED Note-Physician Basic Information Time Seen: Dustin Villalobos [...] her previous episodes of abdominal migraines. She statesthat in the past she has had to [...] and Complexity of Problems Differential Diagnosis: [] [facility] Data External documents reviewed: N/A My EKG [...] suppositories which we will provide for her. Wediscussed the need for continued oral hydration and [...] Stop date 07/30/24 20:01:00 EDT, STAT, Start date07/30/24 20:01:00 EDT, 07/30/24 20:01:00 EDT ondansetron, 4 mg = 1 tab(s), Oral, q8hr, PRN Nausea/Vomiting, # 16 tab(s), Refills(s) 0, [id number], 157, cm, 07/30/24 19:37:00 EDT, Height/Length Dosing, 96.1, kg, 07/30/24 19:37:00 EDT, Weight Dosing promethazine, 12.5 mg = 1 tab(s), Oral, q8hr, PRN as needed for nausea/vomiting, second line, # 10 tab(s), Refills(s) 0, [id number], 157, cm, 07/30/24 19:37:00 EDT, Height/Length Dosing, 96.1, kg, 07/30/24 19:37:00 EDT, Weight Dosing promethazine, 12.5 mg = 1 supp, Rectal, q8hr, PRN as needed for nausea/vomiting, 3rd line, # 6 EA, Refills(s) 0, [id number], 157, cm, 07/30/24 19:37:00 EDT, Height/Length Dosing, 96.1, kg, 07/30/24 19:37:00 EDT, Weight Dosing promethazine 12.5 mg + Sodium Chloride 0.9% intravenous solution 50 mL, Injection, IV Piggyback, Once, Stop date 07/30/24 20:01:00 EDT, STAT, Start date 07/30/24 20:01:00 EDT, 151.5 mL/hr, Infuse over 20 minute(s) Sodium Chloride 0.9% intravenous solution, 1,000 mL, Soln-IV, IV, Once, Stop date 07/30/24 20:01:00EDT, STAT, Start date 07/30/24 20:01:00 EDT, Infuse over 61, minute(s) Basic Metabolic Panel CBC w/ Auto Diff eGFR Hepatic Function Panel Lipase Level Magnesium Level Saline Lock Insert Medications Administered Given lszp54MUB [F] 1000 mg + GenDil 100 mL, IV Piggyback famotidine 10 mg/mL IV Lisa, 20 mg, IV Push NS 1000 ml Bolus, 1000 mL, IV ipicxm07Gqfhablji [F] 12.5 mg + Sodium Chloride 0.9% IV Lisa 50 mL [F] 50 mL, IV Piggyback Disposition Plan Discharge Prescription List Prescriptions Phenergan 12.5 mg Supp, 12.5 mg= 1 supp, Rectal, q8hr, PRN promethazine 12.5 mg oral tablet, 12.5 mg= 1 tab(s), Oral, q8hr, PRN Zofran ODT 4 mg Tab-Dis, 4 mg= 1 tab(s), Or (more content not included)...Normal Mer[facility] HealthComment on above:Result Comment: Electronically Signed By: Dustin Villalobos DO\.br\Date and Time Signed: 07/30/24 22:50 EDTED Patient Summaryon [id number] Patient SummaryED Patient Summary [address] [address] Patient Discharge Instructions Person Information Name: PILI PARIKH Age: 19 Years Arrival Date: 07/30/2024 19:26:13 Discharge Diagnosis: AP (abdominal pain); N&V (nausea and vomiting) Primary Care Physician: MODESTA ARCHIBALD Provider Information Primary Provider: Dustin Villalobos DO Advanced Bus Attendant:None The exam and treatment you received in the Emergency Department were for an urgent problem and are not intended as complete care. It is important that you follow up with a doctor, nurse practitioner,or physician?s trust manager assistant for ongoing care. If your symptoms become worse or you do not improve as expected and you are unable to reach your usual health care provider, you should return to the Emergency Department. We are available 24 hours a day. PILI PARIKH has been given the following list of patient education materials, prescriptions andfollow-up instructions: Follow-up Instructions: With: Address: When: FAMILIA CHAND [facility] [address] [id number] Business (1) In 3 days 08/02/2024 In the event that this physician does not participate in your insurance network, please consult with your insurance company to find a nearby participating provider. Patient Education Materials: Nausea and Vomiting, Adult A MESSAGE TO ALL PATIENTS REGARDING OPIOIDS PRESCRIPTION OPIOIDS: WHAT YOU NEED TO KNOW Prescription opioids can be used to help relieve nfiwnrcm-ey-sqxsvw pain and are often prescribed following a [...] and have fewer risks and side effects. Optionsmay include: ? Pain relievers such as acetaminophen, [...] unused prescription opioids: Find your community drug take- back program or [place] mail-back program, or flush them down the toilet, following guidance from the Food and Drug Administration (www.fda.gov/Drugs/ResourcesForYou). ? Visit www.cdc.gov/drugoverdose to learn about the risks of opioids abuse and overdose. ? If you believe you may be struggling with addiction, tell your health ambulatory care coordinator and ask for guidance or call [facility] (more content not included)...[facility] HospitalHEMATOLOGYOrdered By: SYSTEM SYSTEM on 61-39-0330Vvhffixof/100 WBC (Bld)0.4 %Normal0.0 - 2.0 %Remisol HemeBasophils/Leukocytes Auto (Bld) [Pure # fraction]0.1 E9/LNormal0.0 - 0.2 E9/LRemisol HemeEosinophils (Bld) [#/Vol]0.1 E9/LNormal0.0 - 0.5 E9/LRemisol HemeEosinophils/100 WBC (Bld)0.5 %Normal0.0 - 8.0 %Remisol HemeErythrocyte distribution width (RBC) [Ratio]13.2 %Bsvnzz34.9 - 14.2 %Remisol HemeHematocrit (Bld) [Volume fraction]39.6 %Dagnyb51.0 - 46.0 %Remisol HemeHemoglobin (Bld) [Mass/Vol]13.7 g/xQUviueu40.0 - 16.0 gm/dLRemisol HemeLymphocytes (Bld) [#/Vol] 2.3 E9/LNormal1.0 - 4.0 E9/LRemisol HemeLymphocytes/100 WBC (Bld)14.1 %Normal 14.0 - 50.0 %Remisol HemeMCH (RBC) [Entitic mass]29.4 qrIuqfow82.0 - 34.0 pg Remisol HemeMCHC (RBC) [Mass/Vol]34.5 g/hZOftqmw64.4 - 36.0 gm/dLRemisol HemeMCV (RBC) [Entitic vol]85.3 jLWgbngc09.0 - 100.0 fLRemisol HemeMonocytes (Bld) [#/Vol]1.2 E9/LHigh0.2 - 1.0 E9/LRemisol HemeMonocytes/100 WBC (Bld)7.5 %Normal 4.0 - 14.0 %Remisol HemeNeutrophils (Bld) [#/Vol]12.6 E9/LHigh2.0 - 7.5 E9/L Remisol HemeNeutrophils/100 WBC (Bld)77.5 %High36.0 - 75.0 %Remisol HemePlatelet 260.0 E9/HVsafxy699.0 - 500.0 E9/LRemisol HemePlatelet mean volume (Bld) [Entitic vol]8.1 fLNormal6.4 - 10.8 fLRemisol HemeRBC (Bld) [#/Vol]4.7 E12/L Normal4.3 - 5.9 E12/LRemisol HemeWBC corrected for nucl RBC Auto (Bld) [#/Vol] 16.2 E9/LHigh4.0 - 11.0 E9/LRemisol HemeHep Func Panelon 27-46-2884Qngkvxw [Mass/Vol]4.7 g/dLNormal3.3-5.0[facility]ther [facility] CenterComment on above: Performed By: #### [id number] #### Christophe [facility] [address], [place] [address]Eliqnps/Globulin (S) [Mass conc ratio]1.1Cscgoc6.1-2.2Fisher [facility] Medical CenterComment on above:Performed By: #### [id number] #### Christophe [facility] [address] [place], [place] [address]VLP [Catalytic activity/Vol]73 Int._Unit/AKrpwfq72-42YcvfkwMercy HealthComment on above:Performed By: #### [id number] #### [facility] [address] [place] [address] No additional P-5'-P [Catalytic activity/Vol]46 Int._Unit/L Normal6-46Mercy HealthComment on above:Performed By: #### [id number] #### [facility] [address] [place] [address]BVQ [Catalytic activity/Vol]24 Int._Unit/LNormal5-43[facility]cy HealthComment on above:Performed By: #### [id number] #### [facility] [address] [place] [address]Fvusvmuue [Mass/Vol]0.7 mg/dLNormal0.0-1.1FPomerene HospitalComment on above:Performed By: #### [id number] #### [facility] [address] [place] [address]Nuiqujrbo.direct [Mass/Vol]0.1 mg/dLNormal0.0-0.4FPomerene HospitalComment on above:Performed By: #### [id number] #### [facility] [address] [place] [address]Hlnmayghq.indirect [Mass or moles/Vol]0.6 mg/dLNormal0.1-0.9 [facility] HealthComment on above:Performed By: #### [id number] #### [facility] [address] [place] [address]Cnybpelx (S) [Mass/Vol]2.8 g/dLNormal1.4-4.0[facility] HealthComment on above:Performed By: #### [id number] #### [facility] [address] [place] [address]Sheyicf [Mass/Vol]7.5 g/dLNormal6.0-7.8[facility]cy HealthComment on above:Performed By: #### [id number] #### Christophe [facility] [address] [place], [place] [address]Anticw Levelon 32-68-1053Mhlbow [Catalytic activity/Vol]10 U/L Yen69-48PxdserMercy HealthComment on above:Performed By: #### [id number] #### Saeed [facility] [address] [place], [place] [address]Alijheewcye 30-53-6830Hqufykosb [Mass/Vol]2.2 mg/dLNormal 1.3-2.4[facility] CenterComment on above:Performed By: #### [id number] #### Saeed [facility] [address] [place], [place] [address]cXRRwp 14-69-2475rAJQ554 mL/min/1.73 h0Wfrohm>=59Mercy HealthComment on above:Order Comment: Order added by Discern Expert. Performed By: #### [id number] #### Saeed [facility] [address] [place], [place] [address]Bnnarsw aminotransferase [Enzymatic activity/volume] in Serum or PlasmaOrdered By: Femi Benitez on 35-75-6829WMK [Catalytic activity/Vol]25 U/L 7-52[facility], Cancer CenterAlbumin [Mass/volume] in Serum or Plasma by Bromocresol green (BCG) dye binding methoOrdered By: Femi Benitez on 03-18-2024 Albumin BCG dye [Mass/Vol]5.3 g/dL3.5-5.7FDayton Osteopathic Hospital Alkaline phosphatase [Enzymatic activity/volume] in Serum or PlasmaOrdered By: Femi Benitez on 99-18-1281QNL [Catalytic activity/Vol]82 U/B28-596PknrbtccmOhiohealth Arthur G.H. Bing, Md, Cancer CenterAspartate aminotransferase [Enzymatic activity/volume] in Serum or PlasmaOrdered By: Femi Benitez on 43-49-5969TOO [Catalytic activity/Vol] 23 U/F17-55SzolwefauOhiohealth Arthur G.H. Bing, Md, Cancer CenterBasophils Auto (Bld) [#/Vol]Ordered By: Femi Benitez on 12-47-2053Ethmrhnev (Bld) [#/Vol]0.1 10*3/uL0.0-0.2FDayton Osteopathic HospitalBasophils/100 WBC Auto (Bld)Ordered By: Femi Benitez on 70-09-1059Ltmftsvqk/100 WBC (Bld)0.4 %.[facility] Bilirubin.total [Mass/volume] in Serum or PlasmaOrdered By: Femi Benitez on 61-60-9064Teuprcfho [Mass/Vol]0.9 mg/dL0.3-1.0[facility] Calcium [Mass/volume] in Serum or PlasmaOrdered By: Femi Benitez on 03-18-2024 Calcium [Mass/Vol]10.4 mg/dL8.6-10.3FDayton Osteopathic HospitalCarbon dioxide, total [Moles/volume] in Serum or PlasmaOrdered By: Femi Benitez on 10-37-5846NP5 [Moles/Vol]18.4 mmol/L21.0-31.0[facility] Chloride [Moles/volume] in Serum or PlasmaOrdered By: Femi Benitez on 03-18-2024 Chloride [Moles/Vol]94 mmol/R69-830PmltukhgyOhiohealth Arthur G.H. Bing, Md, Cancer Center Choriogonadotropin.beta subunit [Units/volume] in Serum or PlasmaOrdered By: Femi Benitez on 37-10-0923WFP.beta subunit QnNegativeOhiohealth Arthur G.H. Bing, Md, Cancer CenterCreatinine [Mass/volume] in Serum or PlasmaOrdered By: Femi Benitez on 69-91-8499Pyummmkftw [Mass/Vol]0.80 mg/dL0.60-1.20[facility], Cancer CenterEosinophils Auto (Bld) [#/Vol]Ordered By: Femi Benitez on 03-18-2024 Eosinophils (Bld) [#/Vol]0.4 10*3/uL0.0-0.45[facility] Eosinophils/100 WBC Auto (Bld)Ordered By: Femi Benitez on 03-18-2024 Eosinophils/100 WBC (Bld)2.3 %.[facility] Md, Cancer CenterErythrocyte distribution width Auto (RBC) [Ratio]Ordered By: Femi Benitez on 03-18-2024 Erythrocyte distribution width (RBC) [Ratio]14.3 %11.9-15.3FDayton Osteopathic HospitalGlobulin Calc (S) [Mass/Vol]Ordered By: Femi Benitez on 03-18-2024 Globulin (S) [Mass/Vol]2.8 g/dLOhiohealth Arthur G.H. Bing, Md, Cancer CenterGlucose [Mass/volume] in Serum or PlasmaOrdered By: Femi Benitez on 88-25-9137Jxtlbyk [Mass/Vol]95 mg/iY03-253IvccigvvyOhiohealth Arthur G.H. Bing, Md, Cancer CenterComment on above:ADA recommended reference rangeRandom Glucose Reference Range is dependent on time and content of last meal. Glucose of more than 200 mg/dL in a nonstressed, ambulatory subject supports the diagnosisof Diabetes Mellitus.Hematocrit Auto (Bld) [Volume fraction]Ordered By: Femi Benitez on 91-15-8714Wowhrnhjde (Bld) [Volume fraction]48.2 %34.0-46.4FDayton Osteopathic HospitalHemoglobin [Mass/volume] in BloodOrdered By: Femi Benitez on 57-13-5446Xdpckvwdtf (Bld) [Mass/Vol]16.3 g/dL11.8-15.4FDayton Osteopathic HospitalLeukocytes [#/volume] corrected for nucleated erythrocytes in Blood by Automated coun Ordered By: Femi Benitez on 30-81-2711OPI corrected for nucl RBC Auto (Bld) [#/Vol]18.5 10*3/uL3.8-11.6FDayton Osteopathic HospitalLymphocytes Auto (Bld) [#/Vol]Ordered By: Femi Benitez on 33-12-4866Hcmselzjbbm (Bld) [#/Vol]3.9 10*3/uL1.00-4.8[facility] Md, Cancer CenterLymphocytes/100 WBC Auto (Bld) Ordered By: Femi Benitez on 84-59-3604Dolidzcicok/100 WBC (Bld)20.9 %.[facility], Cancer CenterMCH Auto (RBC) [Entitic mass]Ordered By: Femi Benitez on 34-84-6506CWW (RBC) [Entitic mass]28.2 pg24.7-34.3FDayton Osteopathic HospitalMCHC Auto (RBC) [Mass/Vol]Ordered By: Femi Benitez on 89-94-5285GZLL (RBC) [Mass/Vol]33.9 g/dL32.0-35.0[facility] Medical CenterMCV Auto (RBC) [Entitic vol]Ordered By: Femi Benitez on 82-75-0907NTK (RBC) [Entitic vol]83.2 fL 80-100[facility] Md, Cancer CenterMonocyte distribution width [Entitic volume] in Blood by AutomatedOrdered By: Femi Benitez on 03-01-4357Znvafiky distribution width Auto (Bld) [Entitic vol]16.34 %0.00-20.00[facility], Cancer CenterMonocytes Auto (Bld) [#/Vol]Ordered By: Femi Benitez on 03-18-2024 Monocytes (Bld) [#/Vol]1.4 10*3/uL0.0-0.8[facility] Monocytes/100 WBC Auto (Bld)Ordered By: Femi Benitez on 43-54-1685Fihpkhoul/100 WBC (Bld)7.6 %.[facility] Md, Cancer CenterNeutrophils Auto (Bld) [#/Vol] Ordered By: Femi Benitez on 65-69-2236Spdextiiqkz (Bld) [#/Vol]12.7 10*3/uL1.8-7.7 [facility] Cancer CenterNeutrophils/100 WBC Auto (Bld)Ordered By: Femi Benitez on 57-03-4416Xxbffrtbqkt/100 WBC (Bld)68.8 %.[facility], Cancer CenterNo Panel InformationOrdered By: Femi Benitez on 53-30-0669Fkzvmfrdg GFR (CKD-EPI)> 60.0 mL/MinOhiohealth Arthur G.H. Bing, Md, Cancer CenterPharmacy Creatinine Clearance (Rkbg928.98[facility], Md, Cancer CenterNucleated erythrocytes [Presence] in Blood by Automated countOrdered By: Femi Benitez on 03-18-2024 Nucleated RBC Auto Ql (Bld)0.1 /100{WBC}0-0.5FDayton Osteopathic Hospital Platelet mean volume Auto (Bld) [Entitic vol]Ordered By: Femi Benitez on 96-33-5373Jkbhbnig mean volume (Bld) [Entitic vol]8.5 fL6.3-10.7FDayton Osteopathic HospitalPlatelets Auto (Bld) [#/Vol]Ordered By: Femi Benitez on 79-54-4578Bxbpunkch (Bld) [#/Vol]358 10*3/hG687-141GyluncueaOhiohealth Arthur G.H. Bing, Md, Cancer CenterPotassium [Moles/volume] in Serum or PlasmaOrdered By: Femi Benitez on 96-47-0622Yhukosysy [Moles/Vol]See comment3.5-5.1FDayton Osteopathic HospitalComment on above:Specimen hemolyzed, redraw requestedResults calledat 2349 on 03/18/24Protein [Mass/volume] in Serum or PlasmaOrdered By: Femi Benitez on 93-59-8304Qjhtdoe [Mass/Vol]8.1 g/dL6.4-8.9[facility] Md, Cancer CenterRBC Auto (Bld) [#/Vol]Ordered By: Femi Benitez on 93-61-9575MAF (Bld) [#/Vol]5.79 10*6/uL3.60-5.00Genesis Hospitalerum or plasma albumin/globulin mass ratioOrdered By: Femi Benitez on 43-61-7762Utljjmu/Globulin [Mass ratio]1.9 {ratio}Genesis Hospitalerum or plasma anion gap determinationOrdered By: Femi Benitez on 18-04-5839Zkwnd gap [Moles/Vol]TNP [facility], Cancer CenterComment on above:Test not performedSodium [Moles/volume] in Serum or PlasmaOrdered By: Femi Benitez on 44-70-5245Jdgisd [Moles/Vol]134 mmol/W171-971IfeqtrxjqOhiohealth Arthur G.H. Bing, Md, Cancer CenterUrea nitrogen [Mass/volume] in Serum or PlasmaOrdered By: Femi Benitez on 47-04-0711Nwhx nitrogen [Mass/Vol]27 mg/dL7-25[facility] Md, Cancer CenterWBC Auto (Bld) [#/Vol]Ordered By: Femi Benitez on 37-99-8810QJL (Bld) [#/Vol]18.5 10*3/uL3.8-11.6 [facility] CenterCB w/ Auto Diffon 42-85-5259Jnslpacyx/100 WBC (Bld)0.4 %Normal0.0-2.0Mercy HealthComment on above:Performed By: #### [id number], [id number], 3543809, 9078925 ####[address] [address]Vbmnzbewm/Leukocytes Auto (Bld) [Pure # fraction]0.1 E9/LNormal0.0-0.2FPomerene HospitalComment on above: Performed By: #### [id number], 48835960, 8564343, 5097303 ####[address] [address]Xsxyayconje (Bld) [#/Vol]0.0 E9/LNormal0.0-0.5FPomerene HospitalComment on above:Performed By: #### 4448560, 44765215, 6692101, 0605447 ####[address] [address]Kjggnbjmctg/100 WBC (Bld)0.3 %Normal 0.0-8.0Mercy HealthComment on above:Performed By: #### 4386063, 65101091, 7065604, 1100630 ####[address] [address]Awwtiffjhmd distribution width (RBC) [Ratio]14.1 % Hejuwi00.9-14.2FPomerene HospitalComment on above:Performed By: #### 2196844, 08995107, 4176294, 1360887 ####[address] [address]Rxkhhufqyg (Bld) [Volume fraction] 44.0 %Tjyhsr48.0-46.0Mercy HealthComment on above:Performed By: #### 4762589, 19048849, 2132346, 6618480 ####[address] [address]Kdynrsgoas (Bld) [Mass/Vol]14.4 g/dL Sqegmu15.0-16.0Mercy HealthComment on above:Performed By: #### 6897451, 17785673, 8080832, 0616531 ####[address] [address]Bypemsepvum (Bld) [#/Vol]2.2 E9/L Normal1.0-4.0Mercy HealthComment on above:Performed By: #### 2486152, 07856148, 1730868, 1268036 ####[address] [address]Djswwbntyiu/100 WBC (Bld)15.8 %Normal 14.0-50.0Mercy HealthComment on above:Performed By: #### 4086991, 49377148, 1146346, 3564210 ####[address] [address]YHC (RBC) [Entitic mass]27.8 qoMycpsm04.0-34.0 Mercy HealthComment on above:Performed By: #### 1995192, 01514430, 4713873, 4764041 ####[address] [address]AOLE (RBC) [Mass/Vol]32.6 g/vNQxzpav61.4-36.0Mercy HealthComment on above:Performed By: #### 8217884, 20372767, 3480503, 2134360 ####[address] [address]RTL (RBC) [Entitic vol]85.2 hWTmiltc68.0-100.0Mercy HealthComment on above:Performed By: #### 4855331, 55272794, 7505827, 0187612 ####[address] [address]Eyjjbfvhg (Bld) [#/Vol]1.1 E9/LHigh0.2-1.0[facility] Comment on above:Performed By: #### 4717109, 71399938, 9297049, 7695680 ####[address] [address] Neutrophils (Bld) [#/Vol]10.6 E9/LHigh2.0-7.5FPomerene HospitalComment on above:Performed By: #### 4244973, 56901697, 9102269, 3603005 ####[address] [address]Pbpljyngmsb/100 WBC (Bld)75.9 %High36.0-75.0Mercy HealthComment on above:Performed By: #### 3341176, 10472664, 6058085, 9744317 ####[address] [address]Annstglq mean volume (Bld) [Entitic vol]8.4 fLNormal6.4-10.8Mercy HealthComment on above:Performed By: #### 8787549, 11367547, 9106678, 3614628 ####[address] [address]Qoytyabrg (Bld) [#/Vol]276.0 E9/L Nomxav952.0-500.0Mercy HealthComment on above:Performed By: #### 3292179, 25669371, 8656353, 6838887 ####[address] [address]WQU (Bld) [#/Vol]5.2 E12/LNormal 4.3-5.9Mercy HealthComment on above:Performed By: #### 0909710, 70598035, 2459098, 2753000 ####[address] [address]WDD corrected for nucl RBC Auto (Bld) [#/Vol]14.0 E9/LHigh4.0-11.0Mercy HealthComment on above:Performed By: #### 9127040, 55946515, 6330135, 4330868 ####[address] [address]KSMAIVICJGulfzxv By: SYSTEM SYSTEM on 08-98-9814Qmrqdjq [Mass/Vol]5.0 g/dLNormal3.3 - 5.0 gm/dLRemisol Chem Albumin/Globulin [Mass ratio]1.8 {ratio}Normal1.1 - 2.2Remisol ChemALP [Catalytic activity/Vol]69 [iU]/mVvxaqn58 - 98 Int._Unit/LRemisol ChemALT No additional P-5'-P [Catalytic activity/Vol]31 [iU]/dNormal6 - 46 Int._Unit/L Remisol ChemAnion gap [Moles/Vol]22 mmol/LHigh6 - 16 mEq/LRemisol ChemAST [Catalytic activity/Vol]19 [iU]/dNormal5 - 43 Int._Unit/LRemisol ChemBilirubin [Mass/Vol]0.8 mg/dLNormal0.0 - 1.1 mg/dLRemisol ChemCalcium [Mass/Vol]10.4 mg/dL Normal8.9 - 11.1 mg/dLRemisol ChemCO2 [Moles/Vol]19 mmol/LLow21 - 31 mmol/L Remisol ChemCreatinine [Mass/Vol]0.8 mg/dLNormal0.5 - 1.3 mg/dLRemisol ChemeGFR 108 mL/min/1.73 j1Wljrij>=59mL/min/1.73 l6Foumlnp ChemGlobulin (S) [Mass/Vol]2.8 g/dLNormal1.4 - 4.0 gm/dLRemisol ChemGlucose [Mass/Vol]86 mg/yCEwyyaj05 - 199 mg/dLRemisol ChemMagnesium [Mass/Vol]2.2 mg/dLNormal1.3 - 2.4 mg/dLRemisol Chem Protein [Mass/Vol]7.8 g/dLNormal6.0 - 7.8 gm/dLRemisol ChemUrea nitrogen [Mass/Vol]24 mg/dLHigh5 - 21 mg/dLRemisol ChemUrea nitrogen/Creatinine [Mass ratio]30 mg/tqSucn01 - 20Remisol ChemCHEMISTRYOrdered By: Manish Sales on 06-99-5708Iarjlhhh [Moles/Vol]99 mmol/NFhk057 - 111 mmol/LRemisol ChemPotassium [Moles/Vol]3.3 mmol/LLow3.5 - 5.3 mmol/LRemisol ChemSodium [Moles/Vol]137 mmol/L Shuddo409 - 145 mmol/LRemisol ChemCMPon 95-84-1490Kqjspiab [Moles/Vol]99 mmol/L Oya083-280RwjrwfMercy HealthComment on above:Performed By: #### 4943695, 06342361, 3154870, 6432071 ####[address] [address]Cnnhpkhrn [Moles/Vol]3.3 mmol/LLow 3.5-5.3FPomerene HospitalComment on above:Performed By: #### 6272037, 12592732, 6833599, 4344134 ####[address] [address]Evviyx [Moles/Vol]137 mmol/CGmyihx478-966MuahqeMercy HealthComment on above:Performed By: #### 5726323, 11990232, 0488972, 8195784 ####[address] [address]Zmenq gap [Moles/Vol]22 mmol/LHigh6-16Mercy HealthComment on above:Performed By: #### 0976812, 64979153, 3983051, 2889343 ####[address] [address]KA8 [Moles/Vol]19 mmol/OYct97-38FspggbMercy HealthComment on above: Performed By: #### 3306668, 02775576, 9021979, 0003386 ####[address] [address]Tudhxav [Mass/Vol]5.0 g/dL Normal3.3-5.0Mercy HealthComment on above:Performed By: #### 6801057, 78420937, 9337246, 4920453 ####[address] [address]Oyjfstw/Globulin (S) [Mass conc ratio]1.0Pgptfh3.1-2.2FPomerene HospitalComment on above:Performed By: #### [id number], [id number], [id number], [id number] ####[address] [address]CTJ [Catalytic activity/Vol]69 Int._Unit/CSzmaac27-24BjtexeMercy HealthComment on above:Performed By: #### [id number], [id number], [id number], [id number] ####[address] [address]FHO No additional P-5'-P [Catalytic activity/Vol]31 Int._Unit/LNormal6-46Mercy HealthComment on above:Performed By: #### [id number], [id number], 7520293, [id number] ####[address] [address]PVR [Catalytic activity/Vol]19 Int._Unit/LNormal5-43Mercy HealthComment on above:Performed By: #### [id number], [id number], 2100835, 8424584 ####[address] [address]Drgdfzmky [Mass/Vol] 0.8 mg/dLNormal0.0-1.1FPomerene HospitalComment on above:Performed By: #### [id number], [id number], 9164198, 5664380 ####[address] [address]Ixlsqff [Mass/Vol]10.4 mg/dLNormal 8.9-11.1FPomerene HospitalComment on above:Performed By: #### [id number], [id number], 7190405, 8837691 ####[address] [address]Dfoksitkjy [Mass/Vol]0.8 mg/dLNormal0.5-1.3FPomerene HospitalComment on above:Performed By: #### [id number], 09961970, 9454577, 4097076 ####[facility] [address] [place] [address]Tmmmtebv (S) [Mass/Vol]2.8 g/dLNormal1.4-4.0Mercy HealthComment on above:Performed By: #### [id number], 15698106, 9724955, 0373572 ####[facility] [address] [place] [address]Unhlttb [Mass/Vol]86 mg/uTHpiykt39-663LhobdkMercy HealthComment on above:Performed By: #### [id number], [id number], 8928599, 7335815 ####[address] [address]Akzfclz [Mass/Vol]7.8 g/dLNormal6.0-7.8Mercy HealthComment on above:Performed By: #### 9107050, [id number], 6603486, 0306975 ####[address] [address]Hkoz nitrogen [Mass/Vol]24 mg/dLHigh 5-21Mercy HealthComment on above:Performed By: #### [id number], [id number], 3985540, 9148059 ####[address] [address]Deoj nitrogen/Creatinine [Mass ratio]30 No Units Bara82-86EulqkxMercy HealthComment on above:Performed By: #### [id number], 49433652, 6166523, 4024184 ####[address] [address]ZC Chest w/ Contraston 30-71-6635DE Chest w/ ContrastExam Date/Time: 03/15/2024 11:36 EDT Reason for Exam: Pneumomediastinum/pneumothorax;Other (please specify) Report IMPRESSION: NEARLY RESOLVED MINIMAL PNEUMOMEDIASTINUM FROM 03/15/2024. NO OTHER SIGNIFICANT CHANGES IDENTIFIED. EXAM: CT Chest w/ Contrast, CT Spine Thoracic DATE: 03/15/2024 11:23 AM CLINICAL HISTORY: Pneumomediastinum/pneumothorax. COMPARISON: Chest, abdomen and pelvis CTs 03/13/2024. [...] Contrast: Isovue 300 Contrast amount in ml's: 100NormAkron Children's HospitalConsent for Treatmenton 26-00-8226Citmdrk for Treatment [id number] Health TroyDischarge Instructionson 22-91-9671Wiuzilpgv Instructions [id number] [facility] Clinical Summaryon 68-75-5236GR Clinical Summary [place] [id number] ED Clinical Summary Person Information Name: PILI PARIKH/New_Anthony Age: 19 Years : 2005 Sex: Female Language: Guyanese PCP: MODESTA ARCHIBALD Marital Status: Single Visit [...] 03/15/2024 13:49:40 03/15/2024 13:49:40 03/15/2024 13:49:40 ADDRESS: [address] [place] [id number] [facility] DOC NOTES: MEDICAL INFORMATION: Prescriptions Given: Medications to Continue with No Changes Other Medications acetaminophen-hydrocodone ([place] 325 mg-5 mg oral tablet) 1 Tablets [...] or any symptoms. DIAGNOSIS: 1:Nausea and vomiting; 2:PneumomediastinumNormalFisher Saluda Medical CenterED Note-Physicianon 09-44-5397KH Note-PhysicianBasic Information Time Seen: Ebony Birmingham, August Carbone [...] emergency room for repeat CAT scan. The patientstates that she has been feeling nauseated and vomiting. She still has some back pain and points tothe mid back area. The patient denies any [...] and Complexity of Problems Differential Diagnosis: [] [facility] Data External documents reviewed: [] My EKG [...] reported some nausea and vomiting. The patient wasgiven Zofran. IV fluid. Her nausea improved. She [...] mL, Soln-IV, IV, Once, Stop date 03/15/24 10:54:00EDT, STAT, Start date 03/15/24 10:54:00 EDT, Infuse [...] as instructed. Return to (more content not included)...Normal Mercy HealthComment on above:Result Comment: Electronically Signed By: August Bermudez M.D.\.br\Date and Time Signed: 03/15/2416:57 EDTED Patient Education Noteon 04-42-2319[place] Patient Education NoteGastroenterology Nausea and Vomiting, Adult Nausea is the [...] added (diluted fruit juice). ? Eat bland, ridi-xf-gdsvvn foods in small amounts as you are able. These foods include bananas, applesauce, rice, lean meats, toast, and crackers. ? Avoid fluids that contain a lot of sugar or caffeine, such as energy drinks, sports drinks, and soda. ? Avoid alcohol. ? Avoid spicy or fatty foods. General instructions ? Take qain-eef-hpbkwnt and prescription medicines only as told by your health care provider. ? Drink enough fluid to keep your urine pale yellow. ? Wash your hands often using soap and water for at least 20 seconds. If soap and water are not available, use hand ancient art curator. ? Make sure that everyone in your [...] and drinking to prevent dehydration. ? Take hsju-lqy-uekpurh and prescription medicines only as told by [...] provider. Document Revised: 05/21/2022 Document Reviewed: 05/21/2022 [employer] Patient Education ? 2022 [employer] Radiology Pneumomediastinum Pneumomediastinum is the presence of [...] cocaine, and marijuana. Spontane (more content not included)...[facility] Patient Summaryon [id number] Patient Summary [place] [id number] Patient Discharge Instructions Person Information Name: PILI PARIKH Age: 19 Years Arrival Date: 03/15/2024 10:32:10 Discharge Diagnosis: 1:Nausea and vomiting; 2:Pneumomediastinum Primary Care Physician: MODESTA ARCHIBALD Provider Information Primary Provider: August Bermudez M.D. Advanced Bus Attendant:None The exam and treatment you received in the Emergency Department were for an urgent problem and are not intended as complete care. It is important that you follow up with a doctor, nurse practitioner,or physician?s trust manager assistant for ongoing care. If your symptoms become worse or you do not improve as expected and you are unable to reach your usual health care provider, you should return to the Emergency Department. We are available 24 hours a day. PILI PARIKH has been given the following list of patient education materials, prescriptions andfollow-up instructions: Follow-up Instructions: With: Address: When: Kirk [...] opioids can be used to help relieve woyzlsng-ge-npgtpm pain and are often prescribed following a [...] and have fewer risks and side effects. Optionsmay include: ? Pain relievers such as acetaminophen, [...] unused prescription opioids: Find your community drug take- back program or yourpharmacy mail-back program, or flush them down the toilet, following guidance from the Food and Drug Administration (www.fda.gov/Drugs/ResourcesForYou). ? Visit www.cdc.gov/drugoverdose to learn about the risks of opioids abuse and overdose. ? If you believe you may be strugg (more content not included)...[facility]riners HospitalHEMATOLOGYOrdered By: SYSTEM SYSTEM on 03-15-2024 Basophils/100 WBC (Bld)0.4 %Normal0.0 - 2.0 %Remisol HemeBasophils/Leukocytes Auto (Bld) [Pure # fraction]0.1 E9/LNormal0.0 - 0.2 E9/LRemisol HemeEosinophils (Bld) [#/Vol]0.0 E9/LNormal0.0 - 0.5 E9/LRemisol HemeEosinophils/100 WBC (Bld) 0.3 %Normal0.0 - 8.0 %Remisol HemeErythrocyte distribution width (RBC) [Ratio] 14.1 %Cgewol36.9 - 14.2 %Remisol HemeHematocrit (Bld) [Volume fraction]44.0 % Qxwqdp75.0 - 46.0 %Remisol HemeHemoglobin (Bld) [Mass/Vol]14.4 g/rZTyasxt13.0 - 16.0 gm/dLRemisol HemeLymphocytes (Bld) [#/Vol]2.2 E9/LNormal1.0 - 4.0 E9/L Remisol HemeLymphocytes/100 WBC (Bld)15.8 %Fvpise87.0 - 50.0 %Remisol HemeMCH (RBC) [Entitic mass]27.8 fwHmtcyg05.0 - 34.0 pgRemisol HemeMCHC (RBC) [Mass/Vol] 32.6 g/zYSmsdox35.4 - 36.0 gm/dLRemisol HemeMCV (RBC) [Entitic vol]85.2 fLNormal 80.0 - 100.0 fLRemisol HemeMonocytes (Bld) [#/Vol]1.1 E9/LHigh0.2 - 1.0 E9/L Remisol HemeMonocytes/100 WBC (Bld)7.6 %Normal4.0 - 14.0 %Remisol Heme Neutrophils (Bld) [#/Vol]10.6 E9/LHigh2.0 - 7.5 E9/LRemisol HemeNeutrophils/100 WBC (Bld)75.9 %High36.0 - 75.0 %Remisol HemePlatelet mean volume (Bld) [Entitic vol]8.4 fLNormal6.4 - 10.8 fLRemisol HemePlatelets (Bld) [#/Vol]276.0 E9/LNormal 150.0 - 500.0 E9/LRemisol HemeRBC (Bld) [#/Vol]5.2 E12/LNormal4.3 - 5.9 E12/L Remisol HemeWBC corrected for nucl RBC Auto (Bld) [#/Vol]14.0 E9/LHigh4.0 - 11.0 E9/LRemisol HemeMagnesiumon 31-33-3726Hpzfvkqyp [Mass/Vol]2.2 mg/dLNormal 1.3-2.4FPomerene HospitalComment on above:Performed By: #### 6172918, 71895656, 1502803, 8406859 ####[facility] [address] [place], [place] [address]jMNYcu 75-67-9133rMYE916 mL/min/1.73 y9Ffexak>=59 Mercy HealthComment on above:Order Comment: Order added by Discern Expert.Performed By: #### [id number], 81122998, 6452957, 6839602 ####[facility] [address] [place], [place] [address]UD Abdomen/Pelvis w/ Contraston 66-66-2736VG Abdomen/Pelvis w/ ContrastExam Date/Time: 03/13/2024 19:18 EDT Reason for Exam: [...] Contrast: Isovue 300 Contrast amount in ml's: 130NormalFisher [facility] Of [facility] St[facility] Joseph Medical CenterCT Chest w/ Contraston 00-27-9476GG Chest w/ ContrastExam Date/Time: 03/13/2024 19:18 EDT Reason for Exam: [...] not require routine follow-up imaging. Ordering Provider: Gaspre Lang FINAL REPORT Dictated: 03/14/2024 3:17 pm Erick Ferrer M.D. Signed (Electronic Signature): 03/14/2024 3:17 pm Signed by: Erick Ferrer M.D. Transcribed by: KIRA Technologist: RAVEN Technical Comments GFR (mL/min/1/73m2) n/a age Contrast: Isovue 300 Contrast amount in ml's: 130NormalFisher [facility] Of Maryland St[facility] Joseph Medical CenterCT Head or Brain w/o Contraston 91-59-8198EQ Head or Brain w/o ContrastExam Date/Time: 03/13/2024 19:18 EDT Reason for Exam: [...] Erick Ferrer M.D. Transcribed by: KIRA Technologist: [facility] HospitalCT Spine Cervical w/o Contraston 27-47-4145IY Spine Cervical w/o ContrastExam Date/Time: 03/13/2024 19:18 EDT Reason for Exam: [...] Erick Ferrer M.D. Transcribed by: KIRA Technologist: [facility] HospitalEMS Documentationon 30-47-5903UOM DocumentationPlease click on link to see report [facility]riners HospitalComment on above:Result Comment: Missing Attachment - total size limit for all attachments exceeded ekgattachments.pdf Can be viewed in source systemXR Chest 2 Viewson 20-97-4249QS Chest 2 ViewsExam Date/Time: 03/13/2024 21:35 EDT Reason for Exam: [...] Kar in mGy = na DAP = naNormalMercy HealthABO/Rhon 48-54-6217TBV/RhPositive Invalid Interpretation [facility] CompanyComment on above:Performed By: #### 3521590, 67017406, 43677621, 53272849 ####[facility] [address] [place], [place] [address]MLB/Rh History Checkon 03-13-2024 ABO/Rh History CheckPatient discharged priorCincinnati Shriners Hospital Comment on above:Performed By: #### [id number], 01521197, 16018550, 47502788 ####[facility] [address] [place], [place] [address]AMTT on 45-40-0440FYCB Gel InterpNegativeCincinnati Shriners HospitalComment on above:Performed By: #### 1279985, 95123056, 97966126, 29381060 ####[facility] [address] [place], [place] [address]U hCG Qualon 00-03-4428Lhcr HCG ( test) QlNegativeCincinnati Shriners Hospital Comment on above:Performed By: #### 43715885, 5011181, 2678389, 9037984, 1332212, 75319729, 35466527, 7346083, 0939573 ####[facility] [address] [place], [place] [address]KRSQK BANKOrdered By: Scarlet Lindquist on 26-02-5771PBG/Rh InterpPositiveInvalid Interpretation CodeST. JOHN [facility] BB Subsection ABSC Gel InterpNegative (03/13/24 6:53 PM)NormalST. JOHN RE[facility]ATION [facility] BB SubsectionBMPon 23-08-9796Ozgnc gap [Moles/Vol]16 mmol/LNormal6-16Mercy HealthComment on above:Performed By: #### 37328601, 8379003, 5107795, 1720555, 1148406, 37975677, 05756309, 8828834, 1774969 ####[facility] [address], [place] [address]Wihdejr [Mass/Vol]10.8 mg/dLNormal8.9-11.1FPomerene Hospital Comment on above:Performed By: #### 63691148, 9976775, 0921671, 5211317, 2706050, 83446840, 79880411, 3550715, 3287857 ####[facility] [address] Arlington AveNorjewish maternity [place], [place] [address]Qfihdpzj [Moles/Vol]105 mmol/LNormal 101-111Mercy HealthComment on above:Performed By: #### 74782129, 3298519, 0384878, 9903294, 7028162, 80069075, 03478723, 9637164, 1138037 ####[facility] [address]mt[address] AveNorjewish maternity hospitalk, [place] [address]RD3 [Moles/Vol]25 mmol/EFjvecx10-47FpegpzMercy HealthComment on above: Performed By: #### 29953935, 2397310, 2140083, 2816612, 4416347, 03759434, 81718658, 2917506, 2000086 ####[facility] [address] AveNorjewish maternity hospitalk, [place] [address]Devwpbvohj [Mass/Vol]0.9 mg/dLNormal0.5-1.3FPomerene HospitalComment on above:Performed By: #### 75548099, 3357684, 1526422, 0278436, 0906469, 60250619, 61697103, 7854160, 5702234 ####Saeed [facility] [address] [place], [place] [address]Homqcnr [Mass/Vol]100 mg/nCRiwocy49-196JkouhpMercy HealthComment on above:Performed By: #### 36268843, 3838761, 0916467, 1413984, 0194608, 75060507, 88361633, 0694643, 5614618 ####[facility]aeed [facility] [address] [place] [address]Jvgrenhpo [Moles/Vol]3.3 mmol/LLow3.5-5.3Fisher [facility] Medical CenterComment on above:Performed By: #### 63742229, 7473577, 5502424, 7412067, 1094478, 91840857, 27325304, 3927132, 1144659 ####Saeed [address] [address]Wbggaa [Moles/Vol]143 mmol/LNormal 135-145Mercy HealthComment on above:Performed By: #### 13129279, 5690500, 1280179, 6505428, 2316885, 94471154, 46252842, 5937523, 6294120 ####[facility] [address] [place] [address]Ehaa nitrogen [Mass/Vol]24 mg/dLHigh5-21Mercy HealthComment on above: Performed By: #### 78098872, 4776048, 4985807, 5252185, 1402843, 31706313, 23322479, 4234805, 7089801 ####[facility] [address] [place] [address]Uavi nitrogen/Creatinine [Mass ratio]27 No Units Rujo32-81YyjzntMercy HealthComment on above:Performed By: #### 87573429, 3559037, 9109953, 4503324, 0505190, 71540527, 74879083, 2341121, 8268349 ####[address] [address] ID#on [id number]#[id number] Interpretation CodeMercy HealthComment on above:Performed By: #### 1181694, 97544714, 92780151, 65360105 ####[address] [address]MGH w/ Auto Diffon 39-71-2426Lrdkhpcpt/100 WBC (Bld)0.4 % Normal0.0-2.0Mercy HealthComment on above:Performed By: #### 81841384, 3600854, 8328277, 4577734, 6558273, 84911895, 82677003, 8131984, 8312591 ####[address] [address]Vhxyzkrjb/Leukocytes Auto (Bld) [Pure # fraction]0.1 E9/LNormal0.0-0.2 [facility] HealthComment on above:Performed By: #### 97339315, 6347588, 8949351, 8687303, 3100244, 78453795, 26013331, 1533248, 1445059 ####[address] [address] Eosinophils (Bld) [#/Vol]0.0 E9/LNormal0.0-0.5FPomerene HospitalComment on above:Performed By: #### 76173952, 3036348, 1348441, 9291142, 2228797, 62063867, 71658744, 9517078, 8708515 ####[address] [address]Swessztslps/100 WBC (Bld)0.1 %Normal 0.0-8.0Mercy HealthComment on above:Performed By: #### 73650939, 0719795, 2280193, 2039916, 0391467, 57143558, 04245693, 1583049, 9087115 ####Saeed [address] [address] Erythrocyte distribution width (RBC) [Ratio]14.4 %High10.9-14.2FPomerene HospitalComment on above:Performed By: #### 50243326, 2767616, 0146706, 2390445, 1993059, 47785315, 92776509, 1919340, 5190062 ####[address] [address]Hpesczivss (Bld) [Volume fraction]42.5 %Urqbnq81.0-46.0Mercy HealthComment on above: Performed By: #### 63356172, 5246997, 1801112, 0075508, 7076394, 39652419, 42395588, 3977644, 2131475 ####[address] [address]Miglexrtoo (Bld) [Mass/Vol]14.0 g/rORdfecz32.0-16.0 [facility] HealthComment on above:Performed By: #### 83683436, 8090079, 6460659, 1174117, 5984988, 96062372, 87051821, 2402564, 1349166 ####[address] [address] Lymphocytes (Bld) [#/Vol]2.3 E9/LNormal1.0-4.0Mercy HealthComment on above:Performed By: #### 44533857, 0174122, 9527908, 3201125, 5543666, 50708600, 73921459, 8225464, 1075237 ####[address] [address]Utqayjeupzc/100 WBC (Bld)11.8 %Low 14.0-50.0Mercy HealthComment on above:Performed By: #### 48722607, 0804324, 7693372, 3241388, 7471885, 45429661, 83683543, 7971481, 4859557 ####[facility]aeed [facility] [address] [place], [place] [address]HPA (RBC) [Entitic mass]27.6 taAjecbc38.0-34.0[facility] Comment on above:Performed By: #### 93955519, 0427292, 7452109, 3913492, 5118409, 93900904, 22994595, 9476429, 1416172 ####Saeed [address] [address]BUTY (RBC) [Mass/Vol]32.9 g/dLNormal 31.4-36.0Mercy HealthComment on above:Performed By: #### 93907717, 6659336, 4670085, 9385819, 4713688, 63988491, 77937319, 9834695, 0250952 ####Saeed [address] [address]XVH (RBC) [Entitic vol]83.8 vBTqlckc43.0-100.0[facility] Comment on above:Performed By: #### 70318932, 8841660, 7779893, 0851682, 0513674, 05169121, 17150839, 9824550, 9258118 ####Saeed [address] [address]Npenaulnm (Bld) [#/Vol]1.4 E9/LHigh 0.2-1.0Mercy HealthComment on above:Performed By: #### 02479925, 8827680, 5040335, 4407622, 4047836, 10629716, 04250760, 0352894, 0564793 ####[address] [address] Neutrophils (Bld) [#/Vol]15.5 E9/LHigh2.0-7.5FPomerene HospitalComment on above:Performed By: #### 69879573, 3357688, 3237849, 6601691, 7529741, 98557112, 84639477, 0581254, 2906877 ####[place] [address] [place], [place] [address]Mybnnvmczwq/100 WBC (Bld)80.6 %High 36.0-75.0Mercy HealthComment on above:Performed By: #### 88935922, 7535397, 3150643, 0796457, 5219364, 91155193, 72938834, 0546842, 9862360 ####[address] [address]Piqpbbrv mean volume (Bld) [Entitic vol]8.4 fLNormal6.4-10.8Mercy HealthComment on above:Performed By: #### 62797554, 1348306, 5077560, 8876651, 9588248, 60216629, 32175587, 5639364, 5600724 ####[address] [address]Mkrriaslh (Bld) [#/Vol]356.0 E9/CNyxnvq316.0-500.0Mer[facility] HealthComment on above:Performed By: #### 98005119, 1828999, 0931292, 5610526, 9849789, 69156135, 72192549, 1990560, 4906857 ####[address] [address]DKX (Bld) [#/Vol]5.1 E12/LNormal4.3-5.9Mer[facility] HealthComment on above:Performed By: #### 00907110, 2098821, 0347740, 0363134, 0611112, 78954575, 96115106, 6079766, 8838288 ####[address] [address]DRU corrected for nucl RBC Auto (Bld) [#/Vol]19.3 E9/LHigh4.0-11.0Mercy HealthComment on above:Result Comment: Slide review performedPerformed By: #### 97686450, 0201057, 2405389, 0380746, 7461896, 03048989, 13653732, 4127648, 5392169 ####Saeed [facility] [address] [place], [place] [address]YJZSXGMYDRefxypg By: SYSTEM SYSTEM on 73-99-4469Lpdwrhh [Mass/Vol]5.4 g/dLHigh3.3 - 5.0 gm/dLRemisol Chem Albumin/Globulin [Mass ratio]1.8 {ratio}Normal1.1 - 2.2Remisol ChemALP [Catalytic activity/Vol]82 [iU]/qPvssvv41 - 98 Int._Unit/LRemisol ChemALT No additional P-5'-P [Catalytic activity/Vol]44 [iU]/dNormal6 - 46 Int._Unit/L Remisol ChemAnion gap [Moles/Vol]16 mmol/LNormal6 - 16 mEq/LRemisol ChemAST [Catalytic activity/Vol]23 [iU]/dNormal5 - 43 Int._Unit/LRemisol ChemBilirubin [Mass/Vol]0.8 mg/dLNormal0.0 - 1.1 mg/dLRemisol ChemBilirubin.direct [Mass/Vol] 0.2 mg/dLNormal0.0 - 0.4 mg/dLRemisol ChemBilirubin.indirect [Mass or moles/Vol] 0.6 mg/dLNormal0.1 - 0.9 mg/dLRemisol ChemCalcium [Mass/Vol]10.8 mg/dLNormal8.9 - 11.1 mg/dLRemisol ChemChloride [Moles/Vol]105 mmol/BIdenvv838 - 111 mmol/L Remisol ChemCO2 [Moles/Vol]25 mmol/ZWzzodc08 - 31 mmol/LRemisol ChemCreatinine [Mass/Vol]0.9 mg/dLNormal0.5 - 1.3 mg/dLRemisol GwjrvXVQ98 mL/min/1.73 b4Nxgfgk >=59mL/min/1.73 b9Yxwxamg ChemEthanol Lvlmg/dLNormal<=11mg/dLRemisol Chem Globulin (S) [Mass/Vol]3.0 g/dLNormal1.4 - 4.0 gm/dLRemisol ChemGlucose [Mass/Vol]100 mg/uFCyldev60 - 199 mg/dLRemisol ChemLactic Acid Lvl1.7 mmol/L Normal0.5 - 2.2 mmol/LRemisol ChemLipase [Catalytic activity/Vol]14 U/HYqofkv82 - 58 unit/LRemisol ChemPotassium [Moles/Vol]3.3 mmol/LLow3.5 - 5.3 mmol/LRemisol ChemProtein [Mass/Vol]8.4 g/dLHigh6.0 - 7.8 gm/dLRemisol ChemSodium [Moles/Vol] 143 mmol/TTvyvig801 - 145 mmol/LRemisol ChemTroponin6.10 pg/mLLow10.10 - 27.10 pg/mLRemisol ChemComment on above:Interpretive Data: The 95% CI (Confidence Interval) PPV (Positive Predictive Value) for myocardial infarction in females is 38 pg/mL, in males 51 pg/mL. The results should be used in conjunction with clinical conditions of myocardial infarction. (Access High Sensitivity Troponin I Instructions For Use, Sugar Sundar, June 2018)Urea nitrogen [Mass/Vol]24 mg/dLHigh5 - 21 mg/dLRemisol ChemUrea nitrogen/Creatinine [Mass ratio]27 mg/sbYomf59 - 20Remisol ChemCOAGULATION Ordered By: Virginia Mccain on 09-37-3756uKJZ Coag (PPP) [Time]32.8 sZgbdfo71.1 - 36.5 second(s)[facility] Auto CoagComment on above:Interpretive Data: Parameter 15 days - 4 weeks 1 - 5 months 6 - 11 months 1 - 5 years 6 - 10 years 11 - 17 years PTT Mean: 35.4 (27.6-45.6) Mean: 33.5 (24.8-40.7) Mean: 32.4 (25.1-40.7) Mean: 31.6 (24.0-39.2) Mean: 31.6 (26.9-38.7) Mean: 31.0 (24.6-38.4) Pediatric Reference ranges were obtained from a study by [employer] [place], et al. prepared from 1437 samples obtained at 7 different centers using the same coagulation reagent and instrumentation as [facility]. Currently there are no coagulation studies available worldwide for children to 14 days, andno normal ranges. Heparin therapeutic range (represented by Anti-Factor Xa activity of 0.2 - 0.4 U/mL) corresponds to PTT of 56.6 - 109.0 sec.INR Coag (PPP) [Relative time]1.11 {INR}Invalid Interpretation CodeST. JOHN RE[facility] Auto CoagComment on above:Interpretive Data: INR results are specifically intended to assess patients stabilized on long-term Anticoagulation therapy suggested INR s Less Intensive Anticoagulation 2.0 3.0 Conventional Range 3.0 4.5PT Coag (PPP) [Time]12.4 sNormal9.4 - 12.5 second(s) [facility] Auto CoagComment on above:Interpretive Data: 15 days - 4 weeks 1 - [...] same coagulation reagent and instrumentation as [facility]. Currently there are no coagulation studies available worldwide for children to 14 days, andno normal ranges.Consent for Treatmenton 50-50-2338Obayuzt for Treatment [id number]#1.00TIFDunlap Memorial HospitalDischarge Instructionson 00-02-7026Aqzwwiffc Instructions [id number]#1.00TIFAshtabula General Hospital Clinical Summaryon 77-37-0807LA Clinical Summary [address] [address] ED Clinical Summary Person Information Name: PILI PARIKH/Nathan Age: 19 Years : 2005 Sex: Female Language: Guyanese PCP: MODESTA ARCHIBALD Marital Status: Single Visit [...] 03/13/2024 22:27:59 03/13/2024 22:27:59 ADDRESS: [address] [facility] [id number] PHYS DOC NOTES: MEDICAL INFORMATION: Prescriptions Given: New Medications [id number], [address] [place], [place] [id number], [phone] acetaminophen-hydrocodone ([place] 325 mg-5 mg oral tablet) 1 Tablets [...] EDUCATION INFORMATION: Instructions: Nausea and Vomiting, Adult, Ncan-cm-Xnkz; Muscle Strain, Rqkt-kz-Wvje Follow up: With: Address: When: MODESTA ARCHIBALD [address] [place], [place] [phone] Business (1) In 3 days 03/16/2024 Comments: You can use the medications as prescribed as needed for pain, nausea. Please follow-up with your primary care doctor for further evaluation and management. Please return to the ED if you develop chest pain, difficulty breathing or if any concerning signs or symptoms. DIAGNOSIS: 1:Fall down stairs; Abnormal CT scan, chest; Back strain; N&V (nausea and vomiting)[facility] Medical CenterED Note-Physicianon 68-77-8839JQ Note-PhysicianBasic Information Time Seen: Gasper Lang PA-C 03/13/2024 17:35 Chief Complaint Pt with hx of POTS got dizzy walking down steps and fell backward down approx. 10 stairs. Pt unsureof LOC or head strike, but c/o mid to lower back pain and head pain. History of Present Illness 39-year-old female comes to the ED for evaluation of injury status post fall. The patient states over the last couple days she has had nausea vomiting and overall poor oral intake. She was walking upthe stairs when she became dizzy and lightheaded causing her to fall backwards down the stairs. Shedid strike her head but she is unsure if there was a loss of consciousness. She does complain of headache as well as diffuse pain across her neck and back. No abdominal pain. No fevers. No chest painor shortness of breath. Medical history significant for [...] likely reactive from the trauma. test is negative,troponins negative. CT imaging shows no acute traumatic injuries however there is nonspecific tracegas along the right major fissure without further [...] discharged home a short course of pain medication,muscle relaxers. She is to return to ED for any new or worsening symptoms. CC time: 35 minutes Due to a high probability of clinically significant, life threatening deterioration, the patient required my highest level of preparedness to intervene emergently and I personally spent this criticalcare time directly and personally managing the patient. [...] 03/13/24 19:05:00 EDT, STA (more content not included)...[facility]Comment [facility]:Result Comment: Electronically Signed By: Gasper Lang PA-C\.br\Date and Time Signed: 03/13/2418:45 EDT\.br\Electronically Co-Signed By: Isaak Francis DO\.br\Date and Time Co-Signed: 03/13/24 22:19 EDT\.br\Electronically Co-Signed By: Femi Roman DO\.br\Date and Time Co-Signed: 03/16/2407:37 EDTED Patient Education Noteon 02-67-7205ND Patient Education NoteGastroenterology Nausea and Vomiting, Adult Nausea is feeling [...] ? Low-calorie sports drinks. ? Eat bland, qvxm-ur-umlign foods in small amounts as you are able, such as: ? Bananas. ? Applesauce. ? Rice. ? Low-fat (lean) meats. ? [place]. ? Crackers. ? Avoid drinking fluids that have a lot of sugar or caffeine in them. This includes energy drinks, sports drinks, and soda. ? Avoid alcohol. ? Avoid spicy or fatty foods. General instructions ? Take ydrm-gpw-ttfggnk and prescription medicines only as told by your doctor. ? Drink enough fluid to keep your pee (urine) pale yellow. ? Wash your hands often with soap and water for at least 20 seconds. If you cannot use soap and water, use hand ancient art curator. ? Make sure that everyone in your [...] doctor about eating and drinking. ? Take fsgp-xtf-lsocsyd and prescription medicines only as told by your doctor. ? Contact your doctor if your symptoms get worse or you have new symptoms. ? Keep all follow-up visits. This information is not intended to replace advice given to you by your health care provider. Make sure you discuss any questions you have with your health care provider. Document Revised: 05/21/2022 Document Reviewed: 05/21/2022 [employer] Patient Education ? 2022 [employer]. Orthopedics Muscle Strain A muscle strain, or [...] ? Protecting your m (more content not included)...[facility] Patient Summaryon [id number] Patient Summary [place] [id number] Patient Discharge Instructions Person Information Name: PILI PARIKH Age: 19 Years Arrival Date: 03/13/2024 17:33:02 Discharge Diagnosis: 1:Fall down stairs; Abnormal CT scan, chest; Back strain; N&V (nausea and vomiting) Primary Care Physician: MODESTA ARCHIBALD Provider Information Primary Provider: Femi Roman DO Advanced Bus Attendant:Gasper Lang PA-C The exam and treatment you received in the Emergency Department were for an urgent problem and are not intended as complete care. It is important that you follow up with a doctor, nurse practitioner,or physician?s trust manager assistant for ongoing care. If your symptoms become worse or you do not improve as expected and you are unable to reach your usual health care provider, you should return to the Emergency Department. We are available 24 hours a day. PILI PARIKH has been given the following list of patient education materials, prescriptions andfollow-up instructions: Follow-up Instructions: With: Address: When: MODESTA ARCHIBALD [address] [place], [place] [phone] Business (1) In 3 days 03/16/2024 Comments: [...] Patient Education Materials: Nausea and Vomiting, Adult, Fsie-zl-Ylnz; Muscle Strain, Iczf-sm-Vhye A MESSAGE TO ALL PATIENTS REGARDING OPIOIDS PRESCRIPTION OPIOIDS: WHAT YOU NEED TO KNOW Prescription opioids can be used to help relieve yekdrwqc-cv-zepaye pain and are often prescribed following a [...] and have fewer risks and side effects. Optionsmay include: ? Pain relievers such as acetaminophen, [...] unused prescription opioids: Find your community drug take- back program or yourpharmRatify mail-back program, or flush them juan (more content not included)...NormalOhio[facility] Traumaon 72-11-2658CO Trauma [id number]#1.00TIFFNormalMercy HealthEthanolon 66-51-9274Pdfujvb Lvl<10Normal<=11[facility] Comment on above:Performed By: #### [id number] ####Christophe [facility] [address] [place], [place] [address]IPGVKSRJEWOmaidaf By: SYSTEM SYSTEM on 44-75-5027Abrlomlii/100 WBC (Bld)0.4 %Normal0.0 - 2.0 %Remisol Heme Basophils/Leukocytes Auto (Bld) [Pure # fraction]0.1 E9/LNormal0.0 - 0.2 E9/L Remisol HemeEosinophils (Bld) [#/Vol]0.0 E9/LNormal0.0 - 0.5 E9/LRemisol Heme Eosinophils/100 WBC (Bld)0.1 %Normal0.0 - 8.0 %Remisol HemeErythrocyte distribution width (RBC) [Ratio]14.4 %High10.9 - 14.2 %Remisol HemeHematocrit (Bld) [Volume fraction]42.5 %Khlzrb17.0 - 46.0 %Remisol HemeHemoglobin (Bld) [Mass/Vol]14.0 g/cVKcdiyg87.0 - 16.0 gm/dLRemisol HemeLymphocytes (Bld) [#/Vol] 2.3 E9/LNormal1.0 - 4.0 E9/LRemisol HemeLymphocytes/100 WBC (Bld)11.8 %Low14.0 - 50.0 %Remisol HemeMCH (RBC) [Entitic mass]27.6 hiJwquww79.0 - 34.0 pgRemisol HemeMCHC (RBC) [Mass/Vol]32.9 g/eNZiypsu56.4 - 36.0 gm/dLRemisol HemeMCV (RBC) [Entitic vol]83.8 uFOqsmvc25.0 - 100.0 fLRemisol HemeMonocytes (Bld) [#/Vol]1.4 E9/LHigh0.2 - 1.0 E9/LRemisol HemeMonocytes/100 WBC (Bld)7.1 %Normal4.0 - 14.0 % Remisol HemeNeutrophils (Bld) [#/Vol]15.5 E9/LHigh2.0 - 7.5 E9/LRemisol Heme Neutrophils/100 WBC (Bld)80.6 %High36.0 - 75.0 %Remisol HemePlatelet mean volume (Bld) [Entitic vol]8.4 fLNormal6.4 - 10.8 fLRemisol HemePlatelets (Bld) [#/Vol] 356.0 E9/KVbnkhr192.0 - 500.0 E9/LRemisol HemeRBC (Bld) [#/Vol]5.1 E12/LNormal 4.3 - 5.9 E12/LRemisol HemeWBC corrected for nucl RBC Auto (Bld) [#/Vol]19.3 E9/LHigh4.0 - 11.0 E9/LRemisol HemeComment on above:Result Comment: Slide review performedHep Func Panelon 05-43-5311Fizrcqs [Mass/Vol]5.4 g/dLHigh3.3-5.0Mercy HealthComment on above:Performed By: #### [id number], 5569208, 9363344, 8913346, 5191370, 92165875, 33187622, 8361844, 7768427 ####[place] [address] [place], [place] [address]Yqytwhv/Globulin (S) [Mass conc ratio]1.4Zduhcl4.1-2.2[facility] CenterComment on above: Performed By: #### [id number], 5074862, 4857810, 8542336, 8019998, 23805841, 65333092, 3112631, 9887661 ####[place] [address] [place], [place] [address]IDN [Catalytic activity/Vol]82 Int._Unit/LNormal 21-98Mercy HealthComment on above:Performed By: #### 01853543, 0328060, 6508365, 0735452, 5745628, 99970079, 17537506, 8835881, 1187726 ####[facility] [address] [place], [place] [address]WVH No additional P-5'-P [Catalytic activity/Vol]44 Int._Unit/LNormal6-46Mercy HealthComment on above:Performed By: #### 69169927, 5207102, 1280700, 4884102, 1290295, 58755633, 58306009, 8238252, 3209737 ####[facility] [address] [place] [address]ZDT [Catalytic activity/Vol]23 Int._Unit/LNormal5-43Mercy HealthComment on above:Performed By: #### 27804001, 1675599, 3084773, 0554821, 5703851, 90408044, 53070228, 2340047, 7466209 ####Christophe [facility] [address] [place], [place] [address]Fkpzzvqgq [Mass/Vol]0.8 mg/dLNormal0.0-1.1[facility] CenterComment on above:Performed By: #### 95655079, 9938993, 9222545, 4079653, 3048160, 78292211, 50868024, 7276759, 4992104 ####Christophe [address] [address]Ukmvamfcu.direct [Mass/Vol]0.2 mg/dLNormal0.0-0.4[facility] CenterComment on above: Performed By: #### 12325222, 7529483, 3497355, 1226984, 1018780, 85066651, 01618613, 4869321, 7344325 ####Christophe [address] [address]Gtaiyhkmx.indirect [Mass or moles/Vol]0.6 mg/dL Normal0.1-0.9Mercy HealthComment on above:Performed By: #### 66736543, 0712199, 0360927, 3101946, 5895772, 70386191, 99062695, 2953204, 0260059 ####Christophe [facility] [address] [place] [address]Nbjusqvh (S) [Mass/Vol]3.0 g/dLNormal1.4-4.0[facility] Comment on above:Performed By: #### 86561731, 4484576, 8635359, 6776155, 3735899, 53111320, 97159192, 0900505, 7731731 ####Christophe [facility] [address] [place] [address]Svvqydj [Mass/Vol]8.4 g/dLHigh6.0-7.8 Mercy HealthComment on above:Performed By: #### 07449228, 5723024, 7607612, 8657978, 1281981, 46738465, 55232168, 0912124, 9557841 ####[facility] [address] [place] [address] Lactic Acidon 76-46-1304Roqghb Acid Lvl1.7 mmol/LNormal0.5-2.2[facility] CenterComment on above:Performed By: #### 74428070, 9258295, 3219147, 8805670, 7839250, 15172901, 14330527, 8973555, 1137229 ####[facility] [address] [place], [place] [address]Tezorc Levelon 03-13-2024 Lipase [Catalytic activity/Vol]14 U/EFkknui53-37EfmhvsMercy Health Comment on above:Performed By: #### 10395317, 4958601, 5747711, 5085671, 0631463, 76597533, 09390193, 0035725, 4271249 ####[facility] [address] [place], [place] [address]Rwcczmy Recordon 71-85-4048Anqinao [id number]#1.00TIFFNormalMercy HealthMonitor [id number]#1.00TIFF NormalMercy HealthPT & PTTon 80-65-5156gZQG Coag (PPP) [Time]32.8 second(s)Smeydz62.1-36.5[facility] CenterComment on above:Result Comment: Parameter 15 days - 4 weeks 1 - 5 months 6 - 11 months 1 - 5 years 6 - 10 years 11 - 17 years PTT Mean: 35.4 (27.6-45.6) Mean: 33.5 (24.8-40.7) Mean: 32.4 (25.1-40.7) Mean: 31.6 (24.0-39.2) Mean: 31.6 (26.9-38.7) Mean: 31.0 (24.6-38.4) Pediatric Reference ranges were obtained from a study by jyoti Youssef. prepared from 1437 samples obtained at 7 different centers using the same coagulation reagent and instrumentation as [facility]. Currently there are no coagulation studies available worldwide for children to 14 days, andno normal ranges. Heparin therapeutic range (represented by Anti-Factor Xa activity of 0.2 - 0.4 U/mL) corresponds to PTT of 56.6 - 109.0 sec.Performed By: #### [id number], 6706427, 0159625, 4277710, 2239624, 96816935, 02934463, 2211717, 6088456 ####Christophe [facility] [address] [place], [place] [address]IDU Coag (PPP) [Relative time]1.11 {INR}Invalid Interpretation CodeFisher [facility] Of [facility] St. Joseph Medical CenterComment on above:Result Comment: INR results are specifically intended to assess patients stabilized on long-term Anticoagulation therapy suggested INR?s ?Less Intensive Anticoagulation? 2.0 ? 3.0 Conventional Range 3.0 ? 4.5Performed By: #### 07738284, 5222446, 5283871, 8946988, 5256458, 20010018, 97602086, 3863735, 7525535 ####Christophe [facility] [address] [place], [place] [address]RW Coag (PPP) [Time]12.4 second(s)Normal9.4-12.5[facility] Medical CenterComment on above:Result Comment: 15 days - 4 weeks 1 - 5 months 6 -11 months 1-5 years 6-10 years 11 -17 years Mean: 11.2 (9.5-12.6) Mean: 11.0 (9.7-12.8) Mean: 11.0 (9.8-13.0) Mean: 11.3 (9.9-13.4) Mean: 11.7 (10.0-14.6) Mean: 11.8 (10.0 - 14.1) Pediatric Reference ranges were obtained from a study by [employer] [place], et al. prepared from 1437 samples obtained at 7 different centers using the same coagulation reagent and instrumentation as [facility]. Currently there are no coagulation studies available worldwide for children to 14 days, andno normal ranges.Performed By: #### [id number], 2279058, 2970164, 7364712, 5081515, 82411444, 62333504, 1824592, 9701949 ####[facility] [address] [place], [place] [address]Hjj-Pasiviw Noteon 98-59-3827Gxa- Arrival NotePre-Arrival Summary Name: , [facility] Current Date: 03/13/2024 17:34:24 EDT Gender: Female Date of : Age: 19 Pre-Arrival Type: EMS ETA: 03/13/2024 17:59:00 EDT Primary Care Physician: Presenting Problem: fall down 10 stairs Pre-Arrival User: Payal Robison RN Referring Source: Location: Completion Date/Time: 03/13/2024 17:29:00 [facility] Emergency Department Pre-Hospital Report Form Vital Signs: 127/83; 66; 17; 96%; GCS 15 Pre-Hospital Report: Treatment in Route: C-COLLAR Response to Treatment: Misc. Issues:[facility] HospitalPrescriptions/Work Noteson 22-96-0952Cacfeaahxhifl/Work Notes [id number]#1.00Ber[facility] HospitalRAD - Preliminary Cat Scan Reporton 05-20-1287NTP - Preliminary Cat Scan [id number]#1.00[facility] Anthony's HospitalEROLOGYOrdered By: Virginia Mccain on 15-04-5442Gxbw HCG ( test) QlNegative (03/13/24 6:53 PM)NormalST. JOHN [facility] Man SeroTroponinon 51-48-4562Gibzhpdk4.10 pg/mLLow 10.10-27.10Mercy HealthComment on above:Result Comment: The 95% CI (Confidence Interval) PPV (Positive Predictive Value) for myocardial infa rction in females is 38 pg/mL, in males 51 pg/mL. The results should be used in conjunction with clinical conditions of myocardial infarction. (Access High Sensitivity Troponin I Instructions For Use, [place], June 2018)Performed By: #### [id number], 0030522, 3698547, 8810968, 8456427, 01665997, 62926007, 8259879, 8561403 ####[facility] [address] [place], [place] [address]gFMGux 96-05-9302jLLK66 mL/min/1.73 z6Lpejqg>=59Mercy HealthComment on above:Order Comment: qns to run. phlebotomists notified of recollect by message. [id number] 03/13/2024 18:28:21 EDTOrder added by Discern Expert.Performed By: #### 55347113, 4176595, 1618260, 9883721, 5039113, 44014319, 06637418, 3413213, 2192879 ####[facility] [address] [place], [place] [address]Dkkwqxrcpap Screen Ql (U) Ordered By: Familia Christian on 04-21-0219Rtdktzawmton Ql (U)NegativeNegSelect Medical Specialty Hospital - Southeast OhioBarbiturates [Presence] in Urine by Screen methodOrdered By: Familia Christian on 48-36-5625Nxzhtceudrpy Screen Ql (U)NegativeNegSelect Medical Specialty Hospital - Southeast OhioBenzodiazepines Screen Ql (U)Ordered By: Familia Christian on 81-43-5594Foinbccnyzhjmlu Ql (U)NegativeNegSelect Medical Specialty Hospital - Southeast OhioBenzoylecgonine [Presence] in Urine by Screen methodOrdered By: Familia Christian on 48-77-6738Rfhpsddoykbgpnr Screen Ql (U)NegativeNegSelect Medical Specialty Hospital - Southeast OhioCannabinoids [Presence] in Urine by Screen methodOrdered By: Familia Christian on 30-46-1637Tekitqmecwrv Screen Ql (U)PositiveNegativeOhiohealth Arthur G.H. Bing, Md, Cancer CenterComment on above:These are unconfirmed results and should not be used for legal purposes. Drug Cut-Off Concentration: AMPH 1000 ng/mL NIKOLAS 200 ng/mL SHRAVAN 200 ng/mL COCM 300 ng/mL OP 300 ng/mL PCP 25 ng/mL THC 20 ng/mLHCG ( test) IA.rapid Ql (U)Ordered By: Familia Christian on 96-87-0363JDA ( test) Ql (U)NegativeOhiohealth Arthur G.H. Bing, Md, Cancer CenterOpiates [Presence] in Urine by Screen methodOrdered By: Familia Christian on 49-46-5454Raxmxub Screen Ql (U)NegativeNegativeOhiohealth Arthur G.H. Bing, Md, Cancer CenterPhencyclidine Screen Ql (U)Ordered By: Familia Christian on 76-39-0630Isotrzhwnnzua Ql (U)Negative NegativeOhiohealth Arthur G.H. Bing, Md, Cancer CenterCOVID-19 Detected/Not DetectedOrdered By: Modesta Chand on 58-19-2887QDGK-CoV-2 (COVID-19) RNA JANAK+non-probe Ql (Nph)Not detectedNot DetectMetroHealth Parma Medical CenterComment on above: This is a duplicate RP2.1 COVID (PCR) result to be used for statistical tracking purpose only.Respiratory pathogens DNA and RNA panel - Nasopharynx by JANAK with non-probe detectionOrdered By: Modesta Chand on 14-68-8016Lgqnffcnqjj pathogens DNA and RNA panel JANAK+non-probe (Nph)[facility] Basophils Auto (Bld) [#/Vol]Ordered By: Anette Stout on 70-67-8888Cmhrtovgi (Bld) [#/Vol]0.0 10*3/uL0.0-0.1FDayton Osteopathic HospitalBasophils/100 WBC Auto (Bld)Ordered By: Anette Stout on 92-60-2695Yrinencpk/100 WBC (Bld)0.4 %. [facility] Md, Cancer CenterEosinophils Auto (Bld) [#/Vol]Ordered By: Anette Stout on 91-55-5334Xbvodpodjyp (Bld) [#/Vol]0.7 10*3/uL0.0-0.7FDayton Osteopathic HospitalEosinophils/100 WBC Auto (Bld)Ordered By: Anette Stout on 05-04-0416Aznpjyavqdf/100 WBC (Bld)5.5 %.[facility] Erythrocyte distribution width Auto (RBC) [Ratio]Ordered By: Anette Stout on 61-78-5166Mexhmmongyd distribution width (RBC) [Ratio]13.5 %11.9-15.3FDayton Osteopathic HospitalEstimated glomerular filtration rate (GFR) non- AmericanOrdered By: Anette Stout on 49-19-6663XXQ/1.73 sq M.predicted among non- blacks MDRD (S/P/Bld) [Vol rate/Area]> 60 mL/MinOhiohealth Arthur G.H. Bing, Md, Cancer CenterHematocrit Auto (Bld) [Volume fraction]Ordered By: Anette Stout on 82-51-3152Ekqmqaatff (Bld) [Volume fraction]41.5 %36.0-46.0[facility], Md, Cancer CenterHemoglobin [Mass/volume] in BloodOrdered By: Anette Stout on 73-62-8512Phzsovqhkl (Bld) [Mass/Vol]14.0 g/dL12.0-16.0[facility], Md, Cancer CenterLeukocytes [#/volume] corrected for nucleated erythrocytes in Blood by Automated counOrdered By: Anette Stout on 85-62-4807PCN corrected for nucl RBC Auto (Bld) [#/Vol]12.1 10*3/uL4.5-13.5FDayton Osteopathic Hospital Lymphocytes Auto (Bld) [#/Vol]Ordered By: Anette Stout on 65-18-1682Nirshshzjea (Bld) [#/Vol]2.5 10*3/uL1.20-4.8[facility], Md, Cancer CenterLymphocytes/100 WBC Auto (Bld)Ordered By: Anette Stout on 67-86-9740Ubqhaacohrn/100 WBC (Bld) 20.9 %.[facility], Md, Cancer CenterMCH Auto (RBC) [Entitic mass]Ordered By: Anette Stout on 02-27-7914FTA (RBC) [Entitic mass]28.8 pg25.0-35.0[facility], Md, Cancer CenterMCHC Auto (RBC) [Mass/Vol]Ordered By: Anette Stout on 15-78-3992GBTU (RBC) [Mass/Vol]33.7 g/dL31.0-37.0[facility] Md, Cancer CenterMCV Auto (RBC) [Entitic vol]Ordered By: Anette Stout on 08-95-6025CON (RBC) [Entitic vol]85.5 eG46-896JbwsksvnmOhiohealth Arthur G.H. Bing, Md, Cancer CenterMonocytes Auto (Bld) [#/Vol]Ordered By: Anette Stout on 99-27-5353Rcuasmfen (Bld) [#/Vol]0.9 10*3/uL 0.1-1.00[facility] Md, Cancer CenterMonocytes/100 WBC Auto (Bld)Ordered By: Anette Stout on 92-10-1996Ozwjhbhnk/100 WBC (Bld)7.5 %.[facility], Md, Cancer CenterNeutrophils Auto (Bld) [#/Vol]Ordered By: Anette Stout on 28-51-7267Wdcywtoqcsb (Bld) [#/Vol]8.0 10*3/uL1.2-7.7FDayton Osteopathic HospitalNeutrophils/100 WBC Auto (Bld)Ordered By: Anette Stout on 01-07-2023 Neutrophils/100 WBC (Bld)65.7 %.[facility] Md, Cancer CenterNo Panel InformationOrdered By: Anette Stout on 01-07-2023> 60 mL/MinOhiohealth Arthur G.H. Bing, Md, Cancer Center113.92Ohio[facility]. Bing, Md, Cancer CenterNucleated erythrocytes [Presence] in Blood by Automated countOrdered By: Anette Stout on 01-07-2023 Nucleated RBC Auto Ql (Bld)0.1 /100{WBC}0-0.5FDayton Osteopathic Hospital Platelet mean volume Auto (Bld) [Entitic vol]Ordered By: Anette Stout on 01-21-9970Rbccxawd mean volume (Bld) [Entitic vol]8.6 fL6.3-10.7FDayton Osteopathic HospitalPlatelets Auto (Bld) [#/Vol]Ordered By: Anette Stout on 97-66-6149Bkanucfxz (Bld) [#/Vol]222 10*3/xP789-930WvhxorjcmOhiohealth Arthur G.H. Bing, Md, Cancer CenterRBC Auto (Bld) [#/Vol]Ordered By: Anette Stout on 65-24-0243AWF (Bld) [#/Vol]4.85 10*6/uL4.10-5.10Genesis Hospitalerum or plasma anion gap determinationOrdered By: Anette Stout on 35-31-7471Numlc gap [Moles/Vol]N/AFCleveland Clinic Mercy Hospitalerum or plasma calcium measurement (mass/volume)Ordered By: Anette Stout on 20-96-7813Vlusedf [Mass/Vol] 8.5 mg/dL8.2-10.2FCleveland Clinic Mercy Hospitalerum or plasma chloride measurement (moles/volume)Ordered By: Anette Stout on 85-23-8482Xyytewfj [Moles/Vol]103 mmol/J01-436XoefhcrqlGenesis Hospitalerum or plasma creatinine measurement with calculation of estimated glomerular filtrOrdered By: Anette Stout on 36-81-1336Rnxmeawmxy and Glomerular filtration rate.predicted panel (S/P/Bld)0.77 mg/dL0.44-1.03Genesis Hospitalerum or plasma glucose measurement (mass/volume)Ordered By: Anette Stout on 01-07-2023 Glucose [Mass/Vol]90 mg/nP54-130LjaljkqwcGenesis Hospitalerum or plasma potassium measurement (moles/volume)Ordered By: Eliana Bautista on 01-07-2023 Potassium [Moles/Vol]3.2 mmol/L3.5-5.1FCleveland Clinic Mercy Hospitalerum or plasma sodium measurement (moles/volume)Ordered By: Anette Stout on 01-07-2023 Sodium [Moles/Vol]134 mmol/F617-992LgucdkzdpGenesis Hospitalerum or plasma total carbon dioxide measurement (moles/volume)Ordered By: Anette Stout on 50-96-7646KH3 [Moles/Vol]23.4 mmol/L22.0-30.0[facility] Serum or plasma urea nitrogen measurement (mass/volume)Ordered By: Anette Stout on 92-97-3320Igca nitrogen [Mass/Vol]8 mg/dL9-23Ohio[facility]. [facility], Md, Cancer CenterWBC Auto (Bld) [#/Vol]Ordered By: Anette Stout on 99-08-3292NER (Bld) [#/Vol]12.1 10*3/uL4.5-13.5FDayton Osteopathic HospitalAmphetamine Screen Ql (U)Ordered By: Anette Stout on 23-82-7456Krqajpmdbsck Ql (U)NegativeNegative [facility] Md, Cancer CenterAutomated erythrocytes count in urine sediment (number/area)Ordered By: Rd Brown on 78-91-7231PAK Auto (Urine sed) [#/Area] None seen [HPF]0-4FDayton Osteopathic HospitalAutomated leukocytes count in urine sediment (number/area)Ordered By: Rd Brown on 53-12-6455BAP Auto (Urine sed) [#/Area]20-49 [HPF]0-4FDayton Osteopathic HospitalAutomated urine hyaline casts count (number/volume)Ordered By: Rd Brown on 01-06-2023 Hyaline casts Auto (U) [#/Vol]None seen [LPF]0-1FDayton Osteopathic HospitalBarbiturates [Presence] in UrineOrdered By: Anette Stout on 01-06-2023 Barbiturates Ql (U)NegativeNegativeOhiohealth Arthur G.H. Bing, Md, Cancer CenterBasophils Auto (Bld) [#/Vol]Ordered By: Rd Brown on 21-36-3488Agbmjtuuq (Bld) [#/Vol] 0.0 10*3/uL0.0-0.1FDayton Osteopathic HospitalBasophils/100 WBC Auto (Bld) Ordered By: Rd Brown on 58-87-1050Euwjfqbmq/100 WBC (Bld)0.3 %.[facility], Md, Cancer CenterBenzodiazepines [Presence] in UrineOrdered By: Anette Stout on 06-89-8011Swtvnfklyxuytnx Ql (U)NegativeNegativeOhiohealth Arthur G.H. Bing, Md, Cancer CenterBilirubin Test strip Ql (U)Ordered By: Rd Brown on 01-06-2023 Bilirubin Ql (U)NegativeNegativeOhiohealth Arthur G.H. Bing, Md, Cancer CenterBody fluid albumin measurement (mass/volume)Ordered By: Rd Brown on 56-51-7629Tqdlsou (Body fld) [Mass/Vol]4.9 g/dL3.2-5.5FDayton Osteopathic Hospital Cannabinoids [Presence] in Urine by Screen methodOrdered By: Anette Stout on 36-94-6858Cmnidzaokajn Screen Ql (U)PositiveNegativeOhiohealth Arthur G.H. Bing, Md, Cancer CenterCasts typing in urine sediment by light microscopyOrdered By: Rd Brown on 73-13-0921Tcbnq LM Nom (Urine sed)None seen [LPF]None SeenOhiohealth Arthur G.H. Bing, Md, Cancer CenterColor Auto (U)Ordered By: Rd Brown on 81-72-6083Etyvn (U) YellowYellowOhiohealth Arthur G.H. Bing, Md, Cancer CenterEosinophils Auto (Bld) [#/Vol] Ordered By: Rd Brown on 53-62-1399Oatlewekkec (Bld) [#/Vol]0.4 10*3/uL 0.0-0.7FDayton Osteopathic HospitalEosinophils/100 WBC Auto (Bld)Ordered By: Rd Brown on 23-25-3296Temcbluauee/100 WBC (Bld)2.3 %.[facility]. Bing, Md, Cancer CenterErythrocyte distribution width Auto (RBC) [Ratio]Ordered By: Rd Brown on 90-63-5060Udppviuvbkk distribution width (RBC) [Ratio]13.5 % 11.9-15.3FDayton Osteopathic HospitalEstimated glomerular filtration rate (GFR) non- AmericanOrdered By: Rd Brown on 28-02-9365DEA/1.73 sq M.predicted among non-blacks MDRD (S/P/Bld) [Vol rate/Area]> 60 mL/MinOhiohealth Arthur G.H. Bing, Md, Cancer CenterGlobulin Calc (S) [Mass/Vol]Ordered By: Rd Brown on 44-05-6206Pjwlxqin (S) [Mass/Vol]2.9 g/dLOhiohealth Arthur G.H. Bing, Md, Cancer CenterHCG ( test) IA.rapid Ql (U)Ordered By: Rd Brown on 53-93-3095WPZ ( test) Ql (U)NegativeOhiohealth Arthur G.H. Bing, Md, Cancer CenterHematocrit Auto (Bld) [Volume fraction]Ordered By: Rd Brown on 65-97-6902Vsgauviivv (Bld) [Volume fraction]48.3 %36.0-46.0[facility], Cancer CenterHemoglobin [Mass/volume] in BloodOrdered By: Rd Brown on 60-70-5941Mqdtxdkukt (Bld) [Mass/Vol]16.2 g/dL12.0-16.0[facility] Md, Cancer CenterKetones Auto test strip (U) [Mass/Vol]Ordered By: Rd Brown on 75-73-2481Lstqrao (U) [Mass/Vol] 4+NegativeOhiohealth Arthur G.H. Bing, Md, Cancer CenterLeukocytes [#/volume] corrected for nucleated erythrocytes in Blood by Automated counOrdered By: Rd Brown on 73-41-6156ATH corrected for nucl RBC Auto (Bld) [#/Vol]17.7 10*3/uL4.5-13.5 [facility], Cancer CenterLymphocytes Auto (Bld) [#/Vol]Ordered By: Rd Brown on 99-84-5570Qvwvhvwfyhy (Bld) [#/Vol]3.5 10*3/uL1.20-4.8[facility] [facility] Cancer CenterLymphocytes/100 WBC Auto (Bld)Ordered By: Rd Brown on 38-07-3410Lfeehiqwdbk/100 WBC (Bld)19.9 %.[facility] Auto (RBC) [Entitic mass]Ordered By: Rd Brown on 17-57-3811IOW (RBC) [Entitic mass]28.7 pg25.0-35.0[facility], Cancer CenterMCHC Auto (RBC) [Mass/Vol]Ordered By: Rd Brown on 47-25-8957SSIL (RBC) [Mass/Vol]33.6 g/dL 31.0-37.0[facility] Cancer CenterMCV Auto (RBC) [Entitic vol]Ordered By: Rd Brown on 82-91-8787KPL (RBC) [Entitic vol]85.4 gU99-289HjxmqceedOhiohealth Arthur G.[facility]. [facility], Md, Cancer CenterMonocyte distribution width [Entitic volume] in Blood by AutomatedOrdered By: Rd Brown on 59-47-5849Crjutpei distribution width Auto (Bld) [Entitic vol]15.43 %0.00-20.00[facility], Cancer CenterMonocytes Auto (Bld) [#/Vol]Ordered By: Rd Brown on 48-10-7271Eneprggmu (Bld) [#/Vol] 1.3 10*3/uL0.1-1.00[facility], Cancer CenterMonocytes/100 WBC Auto (Bld) Ordered By: Rd Brown on 48-91-2441Uithnwnrv/100 WBC (Bld)7.4 %.[facility] Cancer CenterNeutrophils Auto (Bld) [#/Vol]Ordered By: Rd Brown on 06-55-1072Tpgjpyqbroo (Bld) [#/Vol]12.4 10*3/uL1.2-7.7FDayton Osteopathic HospitalNeutrophils/100 WBC Auto (Bld)Ordered By: Rd Brown on 25-19-1333Ulufjjtoggp/100 WBC (Bld)70.1 %.[facility] Nitrite Test strip Ql (U)Ordered By: Rd Brown on 30-10-5909Pnwwreh Ql (U) NegativeNegativeOhiohealth Arthur [facility], Cancer CenterNo Panel InformationOrdered By: Anette Stout on 31-11-8907HvnhtlhlAupztnhrVdofcavthSelect Medical Specialty Hospital - Southeast OhioNo Panel InformationOrdered By: Rd Brown on 01-06-2023> 60 mL/MinOhiohealth Arthur G.[facility], [facility], Cancer Center31.0 U/F35-69MqeunxvcrOhiohealth Arthur [facility]. [facility], Cancer Center102.00 [facility], Cancer CenterNucleated erythrocytes [Presence] in Blood by Automated countOrdered By: Rd Brown on 70-40-1611Xfktyzpiz RBC Auto Ql (Bld) 0.1 /100{WBC}0-0.5FDayton Osteopathic HospitalPhencyclidine Screen Ql (U) Ordered By: Anette Stout on 33-72-0680Rhihpwpegbafp Ql (U)NegativeNegative [facility], Cancer CenterPlatelet mean volume Auto (Bld) [Entitic vol] Ordered By: Rd Brown on 91-47-4552Zrbgwfwq mean volume (Bld) [Entitic vol] 8.5 fL6.3-10.7FDayton Osteopathic HospitalPlatelets Auto (Bld) [#/Vol] Ordered By: Rd Brown on 30-71-9009Atvxgledk (Bld) [#/Vol]296 10*3/iA966-234 [facility], Cancer CenterProtein Auto test strip (U) [Mass/Vol]Ordered By: Rd Brown on 78-58-4230Qbtlidt (U) [Mass/Vol]100 mg/dLNegativeOhiohealth Arthur [facility]. [facility], [facility], Cancer CenterProtein [Mass/volume] in Serum or PlasmaOrdered By: Rd Brown on 25-13-0858Hmmpddb [Mass/Vol]7.8 g/dL6.1-7.9[facility], Cancer CenterRBC Auto (Bld) [#/Vol]Ordered By: Rd Brown on 87-48-1216BAD (Bld) [#/Vol]5.65 10*6/uL4.10-5.10Genesis Hospitalerum or plasma alanine aminotransferase measurement without P-5'-P (enzymatic activi Ordered By: Rd Brown on 44-68-2096OGO No additional P-5'-P [Catalytic activity/Vol]20 U/M58-45VaxijnlmxGenesis Hospitalerum or plasma albumin/globulin mass ratioOrdered By: Rd Brown on 01-06-2023 Albumin/Globulin [Mass ratio]1.7 {ratio}Genesis Hospitalerum or plasma alkaline phosphatase measurement (enzymatic activity/volume)Ordered By: Rd Brown on 94-99-1335XLE [Catalytic activity/Vol]66 U/R80-20WbsqnenvkGenesis Hospitalerum or plasma anion gap determinationOrdered By: Rd Brown on 60-72-8751Bnhjb gap [Moles/Vol]19.4 mmol/L6.0-15.0Gen[facility] Hospitalerum or plasma aspartate aminotransferase measurement (enzymatic activity/volume)Ordered By: Rd Brown on 71-46-4944BHA [Catalytic activity/Vol]20 U/R56-67BhrwvcdjkGenesis Hospitalerum or plasma calcium measurement (mass/volume)Ordered By: Rd Brown on 14-63-6303Wstgbbe [Mass/Vol]9.8 mg/dL8.2-10.2FCleveland Clinic Mercy Hospitalerum or plasma chloride measurement (moles/volume)Ordered By: Rd Brown on 01-06-2023 Chloride [Moles/Vol]91 mmol/V32-479WgxnhrghvGenesis Hospitalerum or plasma creatinine measurement with calculation of estimated glomerular filtr Ordered By: Rd Brown on 58-22-8968Eadwejfmgw and Glomerular filtration rate.predicted panel (S/P/Bld)0.86 mg/dL0.44-1.03Gen[facility] Hospitalerum or plasma glucose measurement (mass/volume)Ordered By: Rd Brown on 26-35-9790Rzvnbax [Mass/Vol]80 mg/eE55-148SgzfthsntOhiohealth Arthur [facility], [facility] Center Serum or plasma potassium measurement (moles/volume)Ordered By: Rd Brown on 68-67-3532Wipofnfhj [Moles/Vol]2.7 mmol/L3.5-5.1FCleveland Clinic Mercy Hospitalerum or plasma sodium measurement (moles/volume)Ordered By: Rd Brown on 77-45-3842Mzvfwt [Moles/Vol]132 mmol/Y293-713JmywmtngkGenesis Hospitalerum or plasma total bilirubin measurement (mass/volume)Ordered By: Rd Brown on 98-34-4457Qidazuxzo [Mass/Vol]1.5 mg/dL0.3-1.2FCleveland Clinic Mercy Hospitalerum or plasma total carbon dioxide measurement (moles/volume) Ordered By: Rd Brown on 69-63-3327XR6 [Moles/Vol]24.3 mmol/L22.0-30.0 Genesis Hospitalerum or plasma urea nitrogen measurement (mass/volume)Ordered By: Rd Brown on 08-16-5925Sfmb nitrogen [Mass/Vol]19 mg/dL9-23Genesis Hospitalpecific gravity Auto test strip (U) [Rel density]Ordered By: Rd Brown on 20-09-2401Dtrifkjw gravity (U) [Rel density]1.0271.001-1.030Genesis Hospitalquamous epithelial cells detection in urine sediment by light microscopyOrdered By: Rd Brown on 24-45-2743Wmyewadrss cells.squamous LM Ql (Urine sed)10-19 [HPF]0-2FDayton Osteopathic HospitalTroponin I.cardiac [Mass/volume] in Serum or Plasma by High sensitivity methodOrdered By: Federico Randolph on 21-58-1748Mglounoj I.cardiac High sensitivity method [Mass/Vol]6 pg/mL0-15[facility], Cancer CenterUrine bacteria detection by automated methodOrdered By: Rd Brown on 44-00-2922Gmqfujua Auto Ql (U)1+None SeenOhiohealth Arthur G.H. [facility], Md, Cancer CenterUrine clarity by refractometry automatedOrdered By: Rd Brown on 32-07-9000Sijucmf Refractometry automated (U)CloudyClearFDayton Osteopathic HospitalUrine cocaine detectionOrdered By: Anette Stout on 01-06-2023 Cocaine Ql (U)NegativeNegativeOhiohealth Arthur [facility], Cancer CenterUrine glucose measurement by automated test strip (mass/volume)Ordered By: Rd Brown on 38-61-8273Yurmfed Auto test strip (U) [Mass/Vol]Normal mg/dLNoThe Christ HospitalUrine hemoglobin detection by automated test stripOrdered By: Rd Brown on 39-48-2493Yurguzfajf Auto test strip Ql (U)3+Negative [facility] CenterUrine lactic acid measurementOrdered By: Rd Brown on 77-48-9972Qrjudwd (U) [Moles/Vol]1.6 mmol/L0.5-2.2FDayton Osteopathic HospitalUrine leukocyte esterase detection by automated test stripOrdered By: Rd Brown on 56-56-2401Rxjolbcga esterase Auto test strip Ql (U)2+ NegativeOhiohealth Arthur G.[facility]. [facility], Md, Cancer CenterUrobilinogen Auto test strip (U) [Mass/Vol]Ordered By: Rd Brown on 65-49-2690Bvqvcpqzbyyc (U) [Mass/Vol] Normal mg/dLNoThe Christ HospitalWBC Auto (Bld) [#/Vol]Ordered By: Rd Brown on 17-83-3096PKV (Bld) [#/Vol]17.7 10*3/uL4.5-13.5FDayton Osteopathic HospitalpH Auto test strip (U)Ordered By: Rd Brown on 94-45-8935kZ (U)6.5 [pH]5.0-9.0[facility] CenterAlbumin [Mass/volume] in Serum or PlasmaOrdered By: Ravi Arguello on 53-84-3352Mvahkcu [Mass/Vol]5.0 g/dL3.2-5.5FDayton Osteopathic HospitalAutomated erythrocytes count in urine sediment (number/area)Ordered By: Ravi Arguello on 55-24-2395FKI Auto (Urine sed) [#/Area]3-4 [HPF]0-4FDayton Osteopathic HospitalAutomated leukocytes count in urine sediment (number/area)Ordered By: Ravi Arguello on 11-79-4079FQK Auto (Urine sed) [#/Area]50-100 [HPF]0-4FDayton Osteopathic HospitalAutomated urine hyaline casts count (number/volume)Ordered By: Ravi Arguello on 64-77-0408Ztensjb casts Auto (U) [#/Vol]None seen [LPF]0-1FDayton Osteopathic HospitalBasophils Auto (Bld) [#/Vol]Ordered By: Ravi Arguello on 68-93-2532Azxsdefll (Bld) [#/Vol]0.1 10*3/uL0.0-0.1FDayton Osteopathic HospitalBasophils/100 WBC Auto (Bld)Ordered By: Ravi Arguello on 01-02-2023 Basophils/100 WBC (Bld)0.5 %.[facility], Cancer CenterBilirubin Test strip Ql (U)Ordered By: Ravi Arguello on 17-69-6776Wrvwnozcu Ql (U)Negative NegativeOhiohealth Arthur [facility]. [facility], Md, Cancer CenterCasts typing in urine sediment by light microscopyOrdered By: Ravi Arguello on 70-73-6522Olwwy LM Nom (Urine sed)None seen [LPF]None SeenOhiohealth Arthur G.H. [facility], Md, Cancer CenterColor Auto (U)Ordered By: Ravi Arguello on 22-38-4660Vqsza (U)YellowYellowOhiohealth Arthur [facility] Eosinophils Auto (Bld) [#/Vol]Ordered By: Ravi Arguello on 07-25-0870Jhhccxgverr (Bld) [#/Vol]0.0 10*3/uL0.0-0.7FDayton Osteopathic HospitalEosinophils/100 WBC Auto (Bld)Ordered By: Ravi Arguello on 78-42-6398Btmjvhutvhf/100 WBC (Bld)0.0 %.[facility], Cancer CenterErythrocyte distribution width Auto (RBC) [Ratio]Ordered By: Ravi Arguello on 94-31-3605Nuepbhilatc distribution width (RBC) [Ratio]13.9 %11.9-15.3FDayton Osteopathic HospitalEstimated glomerular filtration rate (GFR) non- AmericanOrdered By: Ravi Arguello on 22-28-9078CCS/1.73 sq M.predicted among non-blacks MDRD (S/P/Bld) [Vol rate/Area]> 60 mL/MinOhiohealth Arthur G.H. [facility], Md, Cancer CenterGlobulin Calc (S) [Mass/Vol]Ordered By: Ravi Arguello on 59-50-1926Bhucnmgv (S) [Mass/Vol]2.9 g/dL [facility] Cancer CenterHCG ( test) IA.rapid Ql (U)Ordered By: Ravi Arguello on 58-18-1317JKP ( test) Ql (U)NegativeOhiohealth Arthur G.H. Bing, Md, Cancer CenterHematocrit Auto (Bld) [Volume fraction]Ordered By: Ravi Arguello on 36-14-6582Cdbzenwocn (Bld) [Volume fraction]42.1 %36.0-46.0[facility] Cancer CenterHemoglobin [Mass/volume] in BloodOrdered By: Ravi Arguello on 51-67-1815Ivzzunnzfs (Bld) [Mass/Vol]14.0 g/dL12.0-16.0[facility] Cancer CenterKetones Auto test strip (U) [Mass/Vol]Ordered By: Ravi Arguello on 34-12-0223Hpdzgjo (U) [Mass/Vol]3+NegativeOhiohealth Arthur [facility] Leukocytes [#/volume] corrected for nucleated erythrocytes in Blood by Automated counOrdered By: Ravi Arguello on 62-90-8475UYC corrected for nucl RBC Auto (Bld) [#/Vol]14.1 10*3/uL4.5-13.5FDayton Osteopathic HospitalLymphocytes Auto (Bld) [#/Vol]Ordered By: Ravi Arguello on 65-29-4175Lwjlojtqzux (Bld) [#/Vol]1.4 10*3/uL1.20-4.8[facility] Cancer CenterLymphocytes/100 WBC Auto (Bld) Ordered By: Ravi Arguello on 23-10-8987Sracwkxbbdx/100 WBC (Bld)10.1 %.[facility] HospitalH Auto (RBC) [Entitic mass]Ordered By: Ravi Arguello on 81-16-9886THY (RBC) [Entitic mass]28.6 pg25.0-35.0[facility], Cancer CenterMCHC Auto (RBC) [Mass/Vol]Ordered By: Ravi Arguello on 99-67-9245HZFR (RBC) [Mass/Vol]33.2 g/dL31.0-37.0[facility] Cancer CenterMCV Auto (RBC) [Entitic vol]Ordered By: Ravi Arguello on 65-40-7781HLK (RBC) [Entitic vol]86.2 uG78-810WdhgxtpqkOhiohealth Arthur G.[facility]. [facility], Md, Cancer CenterMonocyte distribution width [Entitic volume] in Blood by AutomatedOrdered By: Ravi Arguello on 15-54-7652Opkillsv distribution width Auto (Bld) [Entitic vol]16.52 %0.00-20.00[facility] CenterMonocytes Auto (Bld) [#/Vol]Ordered By: Ravi Arguello on 01-02-2023 Monocytes (Bld) [#/Vol]1.0 10*3/uL0.1-1.00[facility] Monocytes/100 WBC Auto (Bld)Ordered By: Ravi Arguello on 87-23-6022Byohlxdol/100 WBC (Bld)7.0 %.[facility] Cancer CenterNeutrophils Auto (Bld) [#/Vol] Ordered By: Ravi Arguello on 52-03-6555Fokaepazxxj (Bld) [#/Vol]11.6 10*3/uL 1.2-7.7FDayton Osteopathic HospitalNeutrophils/100 WBC Auto (Bld)Ordered By: Ravi Arguello on 19-21-5371Fhbfmgohrpf/100 WBC (Bld)82.4 %.[facility] Cancer CenterNitrite Test strip Ql (U)Ordered By: Ravi Arguello on 01-02-2023 Nitrite Ql (U)NegativeNegativeOhiohealth Arthur [facility], Cancer CenterNo Panel InformationOrdered By: Ravi Arguello on 01-02-2023> 60 mL/MinOhiohealth Arthur [facility], [facility] Center29.0 U/U12-26QgvqwuiveOhiohealth Arthur [facility]. [facility] Center86.85[facility] Cancer CenterNucleated erythrocytes [Presence] in Blood by Automated countOrdered By: Ravi Arguello on 47-38-2047Mllbnkxul RBC Auto Ql (Bld)0.0 /100{WBC}0-0.5FDayton Osteopathic HospitalPlatelet mean volume Auto (Bld) [Entitic vol]Ordered By: Ravi Arguello on 17-75-0753Ujmwjwmj mean volume (Bld) [Entitic vol]8.4 fL6.3-10.7FDayton Osteopathic HospitalPlatelets Auto (Bld) [#/Vol]Ordered By: Ravi Arguello on 92-62-3657Wauqhjfdm (Bld) [#/Vol]299 10*3/uL 150-450[facility] Cancer CenterProtein Auto test strip (U) [Mass/Vol] Ordered By: Ravi Arguello on 82-40-7249Lsuqaha (U) [Mass/Vol]100 mg/dLNegative [facility] CenterProtein [Mass/volume] in Serum or PlasmaOrdered By: Ravi Arguello on 23-62-5493Olxrpqc [Mass/Vol]7.9 g/dL6.1-7.9[facility] Cancer CenterRBC Auto (Bld) [#/Vol]Ordered By: Ravi Arguello on 96-83-8318RGZ (Bld) [#/Vol]4.89 10*6/uL4.10-5.10[facility] Hospitalerum or plasma alanine aminotransferase measurement without P-5'-P (enzymatic activiOrdered By: Ravi Arguello on 18-07-6669NOA No additional P-5'-P [Catalytic activity/Vol]26 U/I86-18VetpkcgshGenesis Hospitalerum or plasma albumin/globulin mass ratioOrdered By: Ravi Arguello on 01-02-2023 Albumin/Globulin [Mass ratio]1.7 {ratio}[facility] Hospitalerum or plasma alkaline phosphatase measurement (enzymatic activity/volume)Ordered By: Ravi Arguello on 08-34-3873LWQ [Catalytic activity/Vol]60 U/G33-17KfwltyrjoGenesis Hospitalerum or plasma anion gap determinationOrdered By: Ravi Arguello on 05-76-2173Riryk gap [Moles/Vol]16.4 mmol/L6.0-15.0[facility] Hospitalerum or plasma aspartate aminotransferase measurement (enzymatic activity/volume)Ordered By: Ravi Arguello on 62-47-6219XSK [Catalytic activity/Vol]32 U/B83-07MmhfrgvigGenesis Hospitalerum or plasma calcium measurement (mass/volume)Ordered By: Ravi Arguello on 49-14-3519Gtuboyk [Mass/Vol]9.8 mg/dL8.2-10.2FCleveland Clinic Mercy Hospitalerum or plasma chloride measurement (moles/volume)Ordered By: Ravi Arguello on 01-02-2023 Chloride [Moles/Vol]106 mmol/Q72-116RjugzllhiGenesis Hospitalerum or plasma creatinine measurement with calculation of estimated glomerular filtr Ordered By: Ravi Arguello on 20-02-8286Vzsdbyoclq and Glomerular filtration rate.predicted panel (S/P/Bld)1.01 mg/dL0.44-1.03Gen[facility] Hospitalerum or plasma glucose measurement (mass/volume)Ordered By: Ravi Arguello on 67-04-7705Nlbzypg [Mass/Vol]123 mg/wK52-121QrtselbszOhiohealth Arthur [facility] Serum or plasma potassium measurement (moles/volume)Ordered By: Ravi Arguello on 69-90-7081Jglplbqqx [Moles/Vol]3.2 mmol/L3.5-5.1FCleveland Clinic Mercy Hospitalerum or plasma sodium measurement (moles/volume)Ordered By: Ravi Arguello on 77-62-2829Orhwzz [Moles/Vol]142 mmol/A942-710WqrfxjyvsGenesis Hospitalerum or plasma total bilirubin measurement (mass/volume)Ordered By: Ravi Arguello on 28-65-7111Vhucvnher [Mass/Vol]0.8 mg/dL0.3-1.2FCleveland Clinic Mercy Hospitalerum or plasma total carbon dioxide measurement (moles/volume) Ordered By: Ravi Arguello on 93-78-1096VJ0 [Moles/Vol]22.8 mmol/L22.0-30.0 [facility] Hospitalerum or plasma urea nitrogen measurement (mass/volume)Ordered By: Ravi Arguello on 86-08-5429Vokh nitrogen [Mass/Vol]22 mg/dL9-23Genesis Hospitalpecific gravity Auto test strip (U) [Rel density]Ordered By: Ravi Arguello on 22-30-8152Mmmyvroz gravity (U) [Rel density]1.0361.001-1.030Genesis Hospitalquamous epithelial cells detection in urine sediment by light microscopyOrdered By: Ravi Arguello on 57-52-0290Eblkulqmuu cells.squamous LM Ql (Urine sed)Innumerable [HPF]0-2 [facility] Cancer CenterUrine bacteria detection by automated method Ordered By: Ravi Arguello on 95-95-0072Obtudsuw Auto Ql (U)3+None SeenOhiohealth Arthur G.H. Bing, Md, Cancer CenterUrine clarity by refractometry automatedOrdered By: Ravi Arguello on 92-19-4371Mzlasgy Refractometry automated (U)TurbidClear [facility] CenterUrine culture routineOrdered By: Ravi Arguello on 67-39-8598Aprkclof identified Cx Nom (U)[facility] Urine glucose measurement by automated test strip (mass/volume)Ordered By: Ravi Arguello on 42-01-0885Ijqeubx Auto test strip (U) [Mass/Vol]Normal mg/dL NormalOhiohealth Arthur G.[facility]. [facility], Md, Cancer CenterUrine hemoglobin detection by automated test stripOrdered By: Ravi Arguello on 04-65-9390Meodwdmchf Auto test strip Ql (U)NegativeNegativeOhiohealth Arthur [facility], Cancer CenterUrine leukocyte esterase detection by automated test stripOrdered By: Ravi Arguello on 41-84-8095Utebrsvrp esterase Auto test strip Ql (U)3+NegativeOhiohealth Arthur [facility] Urobilinogen Auto test strip (U) [Mass/Vol]Ordered By: Ravi Arguello on 57-30-1310Xnmintnamvgi (U) [Mass/Vol]Normal mg/dLNormalOhiohealth Arthur [facility], Cancer CenterWBC Auto (Bld) [#/Vol]Ordered By: Ravi Arguello on 39-98-3753PPO (Bld) [#/Vol]14.1 10*3/uL4.5-13.5[facility] CenterpH Auto test strip (U)Ordered By: Ravi Arguello on 56-67-2317wW (U)6.0 [pH]5.0-9.0[facility] CenterCULTURE URINEon 24-85-5416OAFLIZZ URINECulture Observations: LIGHT GROWTH OF MIXED GENITAL JORI. NO POTENTIAL PATHOGENS SEEN.NormalBlanchard Valley Health System Blanchard Valley HospitalComment on above:Performed By: #### URCX #### [facility] [address] [place] [address] Dr. Dacia AckermanCovid-19 PCR (CVDTB)on 21-79-3830NPRV-CoV-2 (COVID-19) RNA JANAK+probe Ql (Unsp spec)Not detectedNormalNOT DETECTEDThe [facility] Comment on above:Result Comment: When diagnostic testing is negative, the [...] for this test is supported by the [facility]'s declaration that circumstances exist to justify the emergency use of in vitro diagnostics for the detection and/or diagnosis of the virus that causes COVID-19. This EUA will remain in effect for the duration of the COVID-19 declaration justifying emergency of IVDs, unless it is terminated or revoked by the FDA (after which the test may no longer be used).Performed By: #### CVDTBH #### [facility] [address] [place] [address] Dr. Dacia AckermanDRUG SCREEN RAPID (URINE)on 97-88-4376YYRWxesgwnwBnlzjvRBNFVJNG [facility] HospitalComment on above:Performed By: #### DRUGRPD #### [facility] [address] [place] [address] Dr. Dacia AckermanBARNegativeNormalNEGATIVEThe Peoples HospitalComment on above: Performed By: #### DRUGRPD #### [facility] [address] [place] [address] Dr. Dacia CondonPNegativeNormalNEGATIVEBlanchard Valley Health System Blanchard Valley HospitalComment on above: Performed By: #### DRUGRPD #### [facility] [address] [place] [address] Dr. Dacia oMntanoZONegativeNormalNEGATIVEBlanchard Valley Health System Blanchard Valley HospitalComment on above: Performed By: #### DRUGRPD #### [facility] [address] [place] [address] Dr. Dacia MonaeCNegativeNormalNEGATIVEBlanchard Valley Health System Blanchard Valley HospitalComment on above: Performed By: #### DRUGRPD #### [facility] [address] [place] [address] Dr. Dacia LowryPremier Health Miami Valley HospitalComment on above: Result Comment: AMP (Amphetamine): 500ng/mL, BAR (Barbituates): 200 ng/mL, BZO (Benzodiazepines): 150 ng/mL, BUP (Buprenorphine): 10 ng/mL, MELINA (Cocaine): 150 ng/mL, mAMP (Methamphetamine): 500 ng/mL, MTD (Methadone): 200 ng/mL, OPI (Opiates): 100 ng/mL, OXY (Oxycodone): 100 ng/mL, PCP (Phencyclidine): 25 ng/mL, PPX (Propoxyphene): 300 ng/mL, THC (Cannabinoids): 50 ng/mL, TCA (Trycyclic Antidepressants): 300 ng/mLPerformed By: #### DRUGRPD #### [facility] [address] [place] [address] Dr. Dacia AckermanDRUG CUT HEADERDRUG CLASS TEST SYSTEM CUT-OFF CONCENTRATIONS ARE FOLLOWS:NormalThe Peoples HospitalComharbor beach community hospital on above:Performed By: #### DRUGRPD #### [facility] [address] [place] [address] Dr. Dacia De La CruzMPNegativeNormalNEGATIVEBlanchard Valley Health System Blanchard Valley HospitalComharbor beach community hospital on above: Performed By: #### DRUGRPD #### [facility] [address] [place] [address] Dr. Yilan ChangMTDNegativeNormalNEGATIVEBlanchard Valley Health System Blanch[facility] Valley HospitalComment on above: Performed By: #### DRUGRPD #### [facility] [address] [address] [address] Dacia AckermanOPINegativeNormalNEGATIVEBlanchard Valley Health System Blanch[facility] Valley HospitalComharbor beach community hospital on above: Performed By: #### DRUGRPD #### [facility] [address] [address] [address] Dacia AckermanOXYNegativeNormalNEGATIVEBlanchard Valley Health System Bl[facility] HospitalComharbor beach community hospital on above: Performed By: #### DRUGRPD #### [facility] [address] [address] [address] Dacia AckermanPCPNegativeNormalNEGATIVEBlanchard Valley Health System [facility] HospitalComharbor beach community hospital on above: Performed By: #### DRUGRPD #### [facility] [address] [place] [address] Dr. Dacia AckermanPPXNegativeNormalNEGATIVEBlanchard Valley Health System [facility] HospitalComharbor beach community hospital on above: Performed By: #### DRUGRPD #### [facility] [address] [place] [address] Dr. Dacia AckermanTCANegativeNormalNEGATIVEBlanchard Valley Health System [facility] HospitalComharbor beach community hospital on above: Performed By: #### DRUGRPD #### [facility] [address] [place] [address] Dr. Dacia AckermanTHCPositiveAbnormalNEGATIVEBlanchard Valley Health System Bl[facility] HospitalComharbor beach community hospital on above: Performed By: #### DRUGRPD #### [facility] [address] [place] [address] Dr. Dacia Delgado URINE PROFILEon 15-14-8640Enxflukgh Ql (U)SMALLAbnormal NEGATIVEBlanchard Valley Health System Blanch[facility] Valley HospitalComharbor beach community hospital on above:Performed By: #### PREGU, ERUR, UMICRO #### [facility] [address] [place] [address] Dr. Dacia AckermanClarity (U)CLEARNormalCLEARBlanchard Valley Health System Blanch[facility] HospitalComharbor beach community hospital on above: Performed By: #### PREGU, ERUR, UMICRO #### [facility] [address] [place], [place] [address] Dr. Dacia Brice (U)YELLOWNormalYELLOWBlanchard Valley Health System Blanchard Valley HospitalComment on above: Performed By: #### PREGU, ERUR, UMICRO #### [facility] [address] [address] [address] Dacia Kate micrscopic examination will be performed if indicated. NormalThe Peoples HospitalComment on above:Performed By: #### PREGU, ERUR, UMICRO #### [facility] [address] [address] [address] Dacia AckermanGlucose Ql (U)NegativeNormalNEGATIVEBlanchard Valley Health System Bl[facility] Valley HospitalComment on above:Performed By: #### PREGU, ERUR, UMICRO #### [facility] [address] [place] [address] Dr. Dacia AckermanHemoglobin Ql (U)NegativeNormalNEGATIVEToledo Hospital on above:Performed By: #### PREGU, ERUR, UMICRO #### [facility] [address] [place] [address] Dr. Dacia AckermanKetones Ql (U)>=80AbnormalNEGATIVEBlanchard Valley Health System Blanchard Valley HospitalComment on above:Performed By: #### PREGU, ERUR, UMICRO #### [facility] [address] [place] [address] Dr. Dacai AckermanLEUKOCYTESTRACEAbnormalNEGATIVEBlanchard Valley Health System Blanchard Valley HospitalComment on above:Performed By: #### PREGU, ERUR, UMICRO #### [facility] [address] [place] [address] Dr. Dacia AckermanNitrite Ql (U)NegativeNormalNEGATIVEBlanchard Valley Health System Blanchard Valley HospitalComment on above:Performed By: #### PREGU, ERUR, UMICRO #### [facility] [address] [address] [address] Dacia AckermanpH (U)7.5 [pH]Normal5-9The Peoples HospitalComment on above: Performed By: #### PREGU, ERUR, UMICRO #### [facility] [address] [place] [address] Dr. Dacia AckermanProtein (U) [Mass/Vol]100 mg/dLAbnormalNEGATIVE/ TRACEThe [facility] on above:Performed By: #### PREGPAULA Cash, UMICRO #### [facility] [address] [place] [address] Dr. Dacia AckermanSPEC GRAVITY1.768Vlvtiy8.005-<=1.025The [facility] on above:Performed By: #### PREGCASANDRA CashR, UMICRO #### [facility] [address] [place] [address] Dr. Dacia Lyman MICRO INDINDICATEDSelect Medical TriHealth Rehabilitation HospitalComharbor beach community hospital on above: Performed By: #### PREGUCASANDRAR, UMICRO #### [facility] [address] [place] [address] Dr. Dacia Grey Qn (U)1.0 {Kaykay'U}/dLNormal0.2 - 1.0[facility] on above:Performed By: #### PAULA MARTINES, UMICRO #### [facility] [address] [place] [address] Dr. Dacia Camara AND B AGon [id number] General Hospital on above:Result Comment: Negative for Flu A protein angiten. Infection due to Flu A cannot be ruled out. FluA angiten in the sample may be below the detection limit of the test.Performed By: #### INFLUAB #### [facility] [address] [place] [address] Dr. Dacia ArguelloUBNEGHSEE [facility] on above: Result Comment: Negative for Flu B protein antigen. Infection due to Flu B cannot be ruled out. FluB antigen in the sample may be below the detection limit of the test.Performed By: #### INFLUAB #### [facility] [address] [place] [address] Dr. Yilan ChangINFLUENZA A AGNegativeNormalNEGATIVE SEE COMMENTBlanchard Valley Health System Blanchard Valley HospitalComment on above:Performed By: #### INFLUAB #### [facility] [address] [address] [address] Dacia Wong B AGNegativeNormalNEGATIVE SEE COMMENTBlanchard Valley Health System Blanchard Valley HospitalComment on above:Performed By: #### INFLUAB #### [facility] [address] [address] [address] Dacia ChowdhuryGNANCY URon [id number], QUALNegativeNormalNEGATIVEThe Peoples HospitalComment on above:Performed By: #### PREGU, ERUR, UMICRO #### [facility] [address] [place] [address] Dr. Dacia Hernandez MICROSCOPIC ONLYon [id number]LBBX SEENThe Peoples HospitalComment on above:Performed By: #### PREGU, ERUR, UMICRO #### [facility] [address] [place] [address] Dr. Dacia De Los Santos identified Cx Nom (U)INDICATEDSelect Medical TriHealth Rehabilitation HospitalComharbor beach community hospital on above:Performed By: #### PREGU, ERUR, UMICRO #### [facility] [address] [place] [address] Dr. Dacia AckermanCASTREX SEENNormalNONE SEENBlanchard Valley Health System Bl[facility] HospitalComharbor beach community hospital on above:Performed By: #### PREGU, ERUR, UMICRO #### [facility] [address] [address] [address] Dacia Poole LM Nom (Urine sed)NONE SEENNormalNONE SEENBlanchard Valley Health System Bl[facility] Valley HospitalComment on above:Performed By: #### PREGU, ERUR, UMICRO #### [facility] [address] [place] [address] Dr. Pederson ChangEkierrathelial cells LM Ql (Urine sed)MANYAbnormalNONE SEEN /RAREThe Peoples HospitalComment on above:Performed By: #### PREGU, ERUR, UMICRO #### [facility] [address] [place], [place] [address] Dr. Dacia AckermanMUCOUSSMALLAbnormalNONE SEENBlanchard Valley Health System Bl[facility] Valley HospitalComment on above:Performed By: #### PAULA MARTINES UMICRO #### [facility] [address] [place], [place] [address] Dr. Dacia AckermanRBCNONE SEENAbnormal0-2The [facility]oples HospitalComment on above: Performed By: #### PAULA MARTINES UMICRO #### [facility] [address] [place], [place] [address] Dr[address] Pederson ChangWBC5-10AbnormalNONE SEENThe Peoples HospitalComment on above: Performed By: #### PAULA MARTINES UMICЕЛЕНА #### [facility] [address] [place], [place] [address] Dr. Dacia AckermanXR CHEST 1 Von [id number] CHEST 1 VEXAM: XR CHEST 1 V HISTORY: Chest pain. COMPARISON: None. TECHNIQUE: AP erect portable chest radiograph performed. FINDINGS: The trachea is midline. The heart size is normal. The mediastinal and hilar shadows are normal. The lung arevalo are clear. There is no pneumothorax. There is no osseous abnormality. IMPRESSION: Unremarkable AP erect portable chest radiograph. Electronically authenticated by: KIA ARVIZU Date: 2023-01-01 13:00[facility] Rehabilitation HospitalAutomated erythrocytes count in urine sediment (number/area) Ordered By: Federico Randolph on 32-81-7667TOP Auto (Urine sed) [#/Area]0-1 [HPF] 0-4FDayton Osteopathic HospitalAutomated leukocytes count in urine sediment (number/area)Ordered By: Federico Randolph on 02-21-5188IEI Auto (Urine sed) [#/Area]20-49 [HPF]0-4FDayton Osteopathic HospitalBacteria identified Cx Nom (U)Ordered By: Federico Randolph on 98-04-7050Ffkww culture routine Staphylococcus epidermidisOhiohealth Arthur G.H. Bing, Md, Cancer CenterBilirubin Test strip Ql (U)Ordered By: Federico Randolph on 59-03-4291Vsjgtvcmv Ql (U)NegativeNegative [facility], Cancer CenterCOVID-19 SOFIAOrdered By: Federico Randolph on 24-45-2859HFZJ-CoV+SARS-CoV-2 (COVID-19) Ag IA.rapid Ql (Resp)NegativeNegative [facility], Cancer CenterCasts typing in urine sediment by light microscopyOrdered By: Federico Randolph on 85-32-2057Bgnot LM Nom (Urine sed)None seen [LPF]None SeenOhiohealth Arthur G.H. Bing, Md, Cancer CenterColor Auto (U)Ordered By: Federico Rnadolph on 59-32-0132Hfhxy (U)YellowYellowOhiohealth Arthur G.H. Bing, Md, Cancer CenterHCG ( test) IA.rapid Ql (U)Ordered By: Federico Randolph on 10-86-4450PMS ( test) Ql (U)NegativeOhiohealth Arthur G.H. Bing, Md, Cancer Center Influenza virus A and B antigen detection by immunoassayOrdered By: Federico Randolph on 93-37-3358AWFOT+FLUBV Ag IA Ql (Unsp spec)[facility], Cancer CenterKetones Auto test strip (U) [Mass/Vol]Ordered By: Federico Randolph on 01-55-5848Njanoaq (U) [Mass/Vol]3+NegativeOhiohealth Arthur G.H. Bing, Md, Cancer Center Nitrite Test strip Ql (U)Ordered By: Federico Randolph on 74-20-9525Iholeph Ql (U)NegativeNegSelect Medical Specialty Hospital - Southeast OhioNo Panel InformationOrdered By: Federico Randolph on 29-84-5639Pkxv seen [LPF]0-8[facility], Cancer CenterProtein Auto test strip (U) [Mass/Vol]Ordered By: Federico Randolph on 78-94-4123Bzwdkmh (U) [Mass/Vol]100 mg/dLNegAvita Health Systempecific gravity Auto test strip (U) [Rel density]Ordered By: Federico Randolph on 69-92-7322Lifhqsis gravity (U) [Rel density]1.0261.001-1.030 Genesis Hospitalquamous epithelial cells detection in urine sediment by light microscopyOrdered By: Federico Randolph on 52-47-3374Crzlhfsagx cells.squamous LM Ql (Urine sed)Innumerable [HPF]0-2FDayton Osteopathic HospitalUrine bacteria detection by automated methodOrdered By: Federico Randolph on 52-26-9769Tbksqmue Auto Ql (U)3+None SeenOhiohealth Arthur G.H. Bing, Md, Cancer Center Urine clarity by refractometry automatedOrdered By: Federico Randolph on 13-95-9518Xceayap Refractometry automated (U)TurbidCleHolmes County Joel Pomerene Memorial HospitalUrine glucose measurement by automated test strip (mass/volume) Ordered By: Federico Randolph on 71-52-2953Ypvbxsr Auto test strip (U) [Mass/Vol] Normal mg/dLNormFostoria City HospitalUrine hemoglobin detection by automated test stripOrdered By: Federico Randolph on 76-59-5950Cpydwkpyri Auto test strip Ql (U)NegativeNegSelect Medical Specialty Hospital - Southeast OhioUrine leukocyte esterase detection by automated test stripOrdered By: Federico Randolph on 49-66-8994Poessfnxl esterase Auto test strip Ql (U)2+NegativeOhiohealth Arthur G.H. Bing, Md, Cancer CenterUrobilinogen Auto test strip (U) [Mass/Vol]Ordered By: Federico Randolph on 51-10-7907Pjxlexwfwnue (U) [Mass/Vol]Normal mg/dLNoSt. Anthony's HospitalpH Auto test strip (U)Ordered By: Federico Randolhp on 59-49-3190cN (U)[pH]5.0-9.0[facility] Amphetamine Screen Ql (U)Ordered By: Corey Newberry on 86-06-6813Qfvyqfrsssdr Ql (U)NegativeNegativeOhiohealth Arthur G.H. Bing, Md, Cancer CenterBarbiturates [Presence] in UrineOrdered By: Corey Newberry on 87-35-6268Ulqtobmlavto Ql (U)NegativeNegative [facility] Cancer CenterBasophils Auto (Bld) [#/Vol]Ordered By: Corey Newberry on 25-36-8735Kgscucxxy (Bld) [#/Vol]0.0 10*3/uL0.0-0.1FDayton Osteopathic HospitalBasophils/100 WBC Auto (Bld)Ordered By: Corey Newberry on 54-59-6575Jqqjznzdt/100 WBC (Bld)0.3 %.[facility] Benzodiazepines [Presence] in UrineOrdered By: Corey Newberry on 11-09-2022 Benzodiazepines Ql (U)NegativeNegativeOhiohealth Arthur G.H. Bing, Md, Cancer CenterBilirubin Test strip Ql (U)Ordered By: Corey Newberry on 82-15-0715Ueejezyol Ql (U) NegativeNegSelect Medical Specialty Hospital - Southeast OhioBody fluid albumin measurement (mass/volume)Ordered By: Corey Newberry on 26-19-9523Cswzqtd (Body fld) [Mass/Vol]4.2 g/dL3.2-5.5FDayton Osteopathic HospitalCannabinoids [Presence] in Urine by Screen methodOrdered By: Corey Newberry on 11-09-2022 Cannabinoids Screen Ql (U)PositiveNegativeOhiohealth Arthur G.H. Bing, Md, Cancer CenterColor Auto (U)Ordered By: Corey Newberry on 66-18-0843Qopbl (U)YellowYellowOhiohealth Arthur G.H. Bing, Md, Cancer CenterEosinophils Auto (Bld) [#/Vol]Ordered By: Corey Newberry on 88-29-3663Qjrljttqati (Bld) [#/Vol]0.1 10*3/uL0.0-0.7FDayton Osteopathic HospitalEosinophils/100 WBC Auto (Bld)Ordered By: Corey Newberry on 82-17-1726Kjhyrcyxkmi/100 WBC (Bld)0.8 %.[facility] Erythrocyte distribution width Auto (RBC) [Ratio]Ordered By: Corey Newberry on 42-01-9776Uloxojexevp distribution width (RBC) [Ratio]13.8 %11.9-15.3FDayton Osteopathic HospitalEstimated glomerular filtration rate (GFR) non- AmericanOrdered By: Corey Newberry on 47-21-3500PXR/1.73 sq M.predicted among non-blacks MDRD (S/P/Bld) [Vol rate/Area]> 60 mL/MinOhiohealth Arthur G.H. Bing, Md, Cancer CenterGlobulin Calc (S) [Mass/Vol]Ordered By: Corey Newberry on 11-09-2022 Globulin (S) [Mass/Vol]2.4 g/dLOhiohealth Arthur G.H. Bing, Md, Cancer CenterHCG ( test) IA.rapid Ql (U)Ordered By: Corey Newberry on 62-08-3122EFD ( test) Ql (U)NegativeOhiohealth Arthur G.H. Bing, Md, Cancer CenterHematocrit Auto (Bld) [Volume fraction]Ordered By: Corey Newberry on 73-00-6448Rggqstirbb (Bld) [Volume fraction]41.0 %36.0-46.0[facility], Cancer CenterHemoglobin [Mass/volume] in BloodOrdered By: Corey Newberry on 69-65-2547Lrlhpffhvs (Bld) [Mass/Vol]13.4 g/dL12.0-16.0[facility], Cancer CenterKetones Auto test strip (U) [Mass/Vol]Ordered By: Corey Newberry on 25-39-8693Ckzsrne (U) [Mass/Vol]NegativeNegativeOhiohealth Arthur G.H. Bing, Md, Cancer CenterLeukocytes [#/volume] corrected for nucleated erythrocytes in Blood by Automated counOrdered By: Corey Newberry on 60-87-7824MJX corrected for nucl RBC Auto (Bld) [#/Vol]11.7 10*3/uL4.5-13.5FDayton Osteopathic HospitalLymphocytes Auto (Bld) [#/Vol] Ordered By: Corey Newberry on 06-67-0895Wmwgxbwiavk (Bld) [#/Vol]1.4 10*3/uL 1.20-4.8[facility] Md, Cancer CenterLymphocytes/100 WBC Auto (Bld)Ordered By: Corey Newberry on 45-64-0060Tgiwywnrzgm/100 WBC (Bld)12.1 %.[facility] Auto (RBC) [Entitic mass]Ordered By: Corey Newberry on 80-38-6710YED (RBC) [Entitic mass]28.1 pg25.0-35.0[facility], Cancer CenterMCHC Auto (RBC) [Mass/Vol]Ordered By: Corey Newberry on 40-67-2574OSPV (RBC) [Mass/Vol]32.8 g/dL31.0-37.0[facility], Cancer CenterMCV Auto (RBC) [Entitic vol]Ordered By: Corey Newberry on 45-08-3486ARN (RBC) [Entitic vol]85.7 qY44-233XsvmlulgxOhiohealth Arthur G.H. Bing, Md, Cancer CenterMonocyte distribution width [Entitic volume] in Blood by AutomatedOrdered By: Corey Newberry on 11-09-2022 Monocyte distribution width Auto (Bld) [Entitic vol]16.08 %0.00-20.00[facility], Cancer CenterMonocytes Auto (Bld) [#/Vol]Ordered By: Corey Newberry on 70-30-2533Jhrjdhskq (Bld) [#/Vol]0.5 10*3/uL0.1-1.00[facility], Cancer CenterMonocytes/100 WBC Auto (Bld)Ordered By: Corey Newberry on 11-09-2022 Monocytes/100 WBC (Bld)4.7 %.[facility], Cancer CenterNeutrophils Auto (Bld) [#/Vol]Ordered By: Corey Newberry on 48-88-5126Dvxvqaghdjy (Bld) [#/Vol] 9.6 10*3/uL1.2-7.7FDayton Osteopathic HospitalNeutrophils/100 WBC Auto (Bld)Ordered By: Corey Newberry on 49-15-6105Maxqearndco/100 WBC (Bld)82.1 %. [facility], Cancer CenterNitrite Test strip Ql (U)Ordered By: Corey Newberry on 72-17-1957Ycdtyny Ql (U)NegativeNegativeOhiohealth Arthur G.H. Bing, Md, Cancer CenterNo Panel InformationOrdered By: Corey Newberry on 55-44-1345Cxbtkvix NegativeOhiohealth Arthur G.H. Bing, Md, Cancer Center> 60 mL/MinOhiohealth Arthur G.H. Bing, Md, Cancer Center118.86[facility], Cancer CenterNucleated erythrocytes [Presence] in Blood by Automated countOrdered By: Corey Newberry on 75-92-4266Cefhkaogd RBC Auto Ql (Bld)0.1 /100{WBC}0-0.5FDayton Osteopathic HospitalPhencyclidine Screen Ql (U)Ordered By: Corey Newberry on 38-10-6102Gzdtgawikifeg Ql (U) NegativeNegSelect Medical Specialty Hospital - Southeast OhioPlatelet mean volume Auto (Bld) [Entitic vol]Ordered By: Corey Newberry on 98-50-2340Sckxlpao mean volume (Bld) [Entitic vol]8.5 fL6.3-10.7FDayton Osteopathic HospitalPlatelets Auto (Bld) [#/Vol]Ordered By: Corey Newberry on 17-25-3953Osgmszahi (Bld) [#/Vol]274 10*3/eP209-229NxzmeenqfOhiohealth Arthur G.H. Bing, Md, Cancer CenterProtein Auto test strip (U) [Mass/Vol]Ordered By: Corey Newberry on 22-77-2479Sqaysxc (U) [Mass/Vol]Negative NegativeOhiohealth Arthur G.H. Bing, Md, Cancer CenterProtein [Mass/volume] in Serum or PlasmaOrdered By: Corey Newberry on 34-36-5408Jjqyqsd [Mass/Vol]6.6 g/dL6.1-7.9 [facility] Cancer CenterRBC Auto (Bld) [#/Vol]Ordered By: Corey Newberry on 07-90-1615HHJ (Bld) [#/Vol]4.78 10*6/uL4.10-5.10Genesis Hospitalerum or plasma alanine aminotransferase measurement without P-5'-P (enzymatic activiOrdered By: Corey Newberry on 74-89-1984VFP No additional P-5'-P [Catalytic activity/Vol]67 U/U32-59ZvfbbyqjaGenesis Hospitalerum or plasma albumin/globulin mass ratioOrdered By: Corey Newberry on 86-32-0387Zsluepk/Globulin [Mass ratio]1.8 {ratio}Genesis Hospitalerum or plasma alkaline phosphatase measurement (enzymatic activity/volume)Ordered By: Corey Newberry on 23-97-4624UQZ [Catalytic activity/Vol]59 U/C73-42UvsvomjitGenesis Hospitalerum or plasma anion gap determinationOrdered By: Corey Newberry on 33-65-2756Wlsej gap [Moles/Vol] 19.7 mmol/L6.0-15.0Genesis Hospitalerum or plasma aspartate aminotransferase measurement (enzymatic activity/volume)Ordered By: Corey Newberry on 51-91-7987URZ [Catalytic activity/Vol]48 U/P18-64GchkymohaGenesis Hospitalerum or plasma calcium measurement (mass/volume)Ordered By: Corey Newberry on 36-42-3622Wsymfts [Mass/Vol]9.6 mg/dL8.2-10.2FCleveland Clinic Mercy Hospitalerum or plasma chloride measurement (moles/volume) Ordered By: Corey Newberry on 73-68-1754Figvrxon [Moles/Vol]98 mmol/L95-114 [facility] Hospitalerum or plasma creatinine measurement with calculation of estimated glomerular filtrOrdered By: Corey Newberry on 45-72-0458Mmxhpxzouq and Glomerular filtration rate.predicted panel (S/P/Bld) 0.76 mg/dL0.44-1.03Genesis Hospitalerum or plasma glucose measurement (mass/volume)Ordered By: Corey Newberry on 07-60-1943Ylxixhe [Mass/Vol]110 mg/eT13-808YvjqmnerdGenesis Hospitalerum or plasma potassium measurement (moles/volume)Ordered By: Corey Newberry on 11-09-2022 Potassium [Moles/Vol]3.4 mmol/L3.5-5.1FCleveland Clinic Mercy Hospitalerum or plasma sodium measurement (moles/volume)Ordered By: Corey Newberry on 11-09-2022 Sodium [Moles/Vol]137 mmol/T350-681TijvwzkutGenesis Hospitalerum or plasma total bilirubin measurement (mass/volume)Ordered By: Corey Newberry on 96-97-0737Ieprcbzuf [Mass/Vol]0.5 mg/dL0.3-1.2FDayton Osteopathic Hospital Serum or plasma total carbon dioxide measurement (moles/volume)Ordered By: Corey Newberry on 02-58-5126SD8 [Moles/Vol]22.7 mmol/L22.0-30.0Genesis Hospitalerum or plasma urea nitrogen measurement (mass/volume) Ordered By: Corey Newberry on 41-16-0901Jymd nitrogen [Mass/Vol]3 mg/dL9-23 Genesis Hospitalpecific gravity Auto test strip (U) [Rel density]Ordered By: Corey Newberry on 94-56-6628Jepnrlng gravity (U) [Rel density]1.0091.001-1.030[facility], Cancer CenterUrine clarity by refractometry automatedOrdered By: Corey Newberry on 36-83-5298Jzoiomr Refractometry automated (U)ClearCleHolmes County Joel Pomerene Memorial HospitalUrine cocaine detectionOrdered By: Corey Newberry on 84-14-1895Rowwyvk Ql (U)Negative NegativeOhiohealth Arthur G.H. Bing, Md, Cancer CenterUrine glucose measurement by automated test strip (mass/volume)Ordered By: Corey Newberry on 79-71-9779Ralzffj Auto test strip (U) [Mass/Vol]Normal mg/dLNormalOhiohealth Arthur G.[facility]. [facility], [facility], [facility] Center Urine hemoglobin detection by automated test stripOrdered By: Corey Newberry on 62-92-5118Iiftkybkuy Auto test strip Ql (U)NegativeNegativeOhiohealth Arthur G.H. Bing, Md, Cancer CenterUrine leukocyte esterase detection by automated test stripOrdered By: Corey Newberry on 02-80-6040Kcatmnvoh esterase Auto test strip Ql (U) NegativeNegativeOhiohealth Arthur G.H. Bing, Md, Cancer CenterUrobilinogen Auto test strip (U) [Mass/Vol]Ordered By: Corey Newberry on 82-58-2762Nbczdmwumlop (U) [Mass/Vol]Normal mg/dLNormalOhiohealth Arthur G.H. Bing, Md, Cancer CenterWBC Auto (Bld) [#/Vol]Ordered By: Corey Newberry on 16-05-2628NCS (Bld) [#/Vol]11.7 10*3/uL 4.5-13.5FDayton Osteopathic HospitalpH Auto test strip (U)Ordered By: Corey Newberry on 88-17-0127aQ (U)[pH]5.0-9.0[facility] Albumin [Mass/volume] in Serum or PlasmaOrdered By: Art Bianchi on 11-07-2022 Albumin [Mass/Vol]4.6 g/dL3.2-5.5FDayton Osteopathic HospitalAutomated erythrocytes count in urine sediment (number/area)Ordered By: Art Bianchi on 11-08-2291REN Auto (Urine sed) [#/Area]0-1 [HPF]0-4FDayton Osteopathic HospitalAutomated leukocytes count in urine sediment (number/area)Ordered By: Art Bianchi on 40-46-8200EYO Auto (Urine sed) [#/Area]3-4 [HPF]0-4FDayton Osteopathic HospitalBasophils Auto (Bld) [#/Vol]Ordered By: Art Bianchi on 11-48-0569Ercogqrwh (Bld) [#/Vol]0.1 10*3/uL0.0-0.1FDayton Osteopathic HospitalBasophils/100 WBC Auto (Bld)Ordered By: Art Bianchi on 11-07-2022 Basophils/100 WBC (Bld)1.0 %.[facility], Cancer CenterBilirubin Test strip Ql (U)Ordered By: Art Bianchi on 16-05-5340Rdlmpfdhb Ql (U)Negative NegativeOhiohealth Arthur G.H. Bing, Md, Cancer CenterColor Auto (U)Ordered By: Art Bianchi on 56-68-2226Yjcpw (U)YellowYellowOhiohealth Arthur G.H. Bing, Md, Cancer CenterEosinophils Auto (Bld) [#/Vol]Ordered By: Art Bianchi on 18-92-0891Kffbvifpzzl (Bld) [#/Vol] 0.1 10*3/uL0.0-0.7FDayton Osteopathic HospitalEosinophils/100 WBC Auto (Bld)Ordered By: Art Bianchi on 55-53-9741Rwaiorfoxke/100 WBC (Bld)1.2 %. [facility], Cancer CenterErythrocyte distribution width Auto (RBC) [Ratio]Ordered By: Art Bianchi on 86-68-0530Dvwhtrnfxwh distribution width (RBC) [Ratio]14.0 %11.9-15.3FDayton Osteopathic HospitalEstimated glomerular filtration rate (GFR) non- AmericanOrdered By: Art Bianchi on 11-07-2022 GFR/1.73 sq M.predicted among non-blacks MDRD (S/P/Bld) [Vol rate/Area]> 60 mL/MinOhiohealth Arthur G.H. Bing, Md, Cancer CenterGlobulin Calc (S) [Mass/Vol]Ordered By: Art Bianchi on 65-63-7736Amrrdmjw (S) [Mass/Vol]2.7 g/dLOhiohealth Arthur G.H. Bing, Md, Cancer CenterHCG ( test) IA.rapid Ql (U)Ordered By: Atr Bianchi on 72-86-4597ZOC ( test) Ql (U)NegativeOhiohealth Arthur G.H. Bing, Md, Cancer Center Hematocrit Auto (Bld) [Volume fraction]Ordered By: Art Bianchi on 11-07-2022 Hematocrit (Bld) [Volume fraction]43.2 %36.0-46.0[facility] Md, Cancer CenterHemoglobin [Mass/volume] in BloodOrdered By: Art Bianchi on 11-07-2022 Hemoglobin (Bld) [Mass/Vol]14.8 g/dL12.0-16.0[facility] Ketones Auto test strip (U) [Mass/Vol]Ordered By: Art Bianchi on 11-07-2022 Ketones (U) [Mass/Vol]1+NegativeOhiohealth Arthur G.H. Bing, Md, Cancer CenterLeukocytes [#/volume] corrected for nucleated erythrocytes in Blood by Automated coun Ordered By: Art Bianchi on 69-21-9530SJJ corrected for nucl RBC Auto (Bld) [#/Vol]10.3 10*3/uL4.5-13.5FDayton Osteopathic HospitalLymphocytes Auto (Bld) [#/Vol]Ordered By: Art Bianchi on 63-38-8275Llgbigvkabt (Bld) [#/Vol]2.1 10*3/uL1.20-4.8[facility] Md, Cancer CenterLymphocytes/100 WBC Auto (Bld) Ordered By: Art Bianchi on 32-08-1079Ygmoiswhjml/100 WBC (Bld)20.8 %.[facility] Auto (RBC) [Entitic mass]Ordered By: Art Bianchi on 33-67-8171EZH (RBC) [Entitic mass]28.8 pg25.0-35.0[facility] Md, Cancer CenterMCHC Auto (RBC) [Mass/Vol]Ordered By: Art Bianchi on 52-36-8567VZOX (RBC) [Mass/Vol]34.3 g/dL31.0-37.0[facility], Cancer CenterMCV Auto (RBC) [Entitic vol]Ordered By: Art Bianchi on 14-38-0273SSA (RBC) [Entitic vol]84.1 fL 78-102Ohio[facility] Md, Cancer CenterMonocyte distribution width [Entitic volume] in Blood by AutomatedOrdered By: Art Bianchi on 11-74-8203Tmroncqh distribution width Auto (Bld) [Entitic vol]17.07 %0.00-20.00[facility], Cancer CenterMonocytes Auto (Bld) [#/Vol]Ordered By: Art Bianchi on 11-07-2022 Monocytes (Bld) [#/Vol]0.8 10*3/uL0.1-1.00[facility] Monocytes/100 WBC Auto (Bld)Ordered By: Art Bianchi on 47-28-2573Pjgtfbnic/100 WBC (Bld)8.1 %.[facility] Md, Cancer CenterNeutrophils Auto (Bld) [#/Vol] Ordered By: Art Bianchi on 84-18-6938Ellsrqywesv (Bld) [#/Vol]7.1 10*3/uL1.2-7.7 [facility] Cancer CenterNeutrophils/100 WBC Auto (Bld)Ordered By: Art Bianchi on 60-33-0511Amwubtngyiv/100 WBC (Bld)68.9 %.[facility] Md, Cancer CenterNitrite Test strip Ql (U)Ordered By: Art Bianchi on 54-92-8017Tpdtism Ql (U)NegativeNegativeOhiohealth Arthur G.H. Bing, Md, Cancer CenterNo Panel InformationOrdered By: Art Bianchi on 11-17-80423-8 [LPF]0-8[facility]> 60 mL/MinOhiohealth Arthur G.H. Bing, Md, Cancer Center43.0 U/K32-06YaguwjfkeOhiohealth Arthur G.H. Bing, Md, Cancer Center104.35[facility], Cancer CenterNucleated erythrocytes [Presence] in Blood by Automated countOrdered By: Art Bianchi on 40-31-4243Nffhihpdw RBC Auto Ql (Bld)0.3 /100{WBC}0-0.5FDayton Osteopathic HospitalPlatelet mean volume Auto (Bld) [Entitic vol]Ordered By: Art Bianchi on 67-71-2266Fhkqnpnh mean volume (Bld) [Entitic vol]8.4 fL6.3-10.7FDayton Osteopathic Hospital Platelets Auto (Bld) [#/Vol]Ordered By: Art Bianchi on 26-45-1697Degkzobkv (Bld) [#/Vol]308 10*3/kK502-089RmxgxansfOhiohealth Arthur G.H. Bing, Md, Cancer CenterProtein Auto test strip (U) [Mass/Vol]Ordered By: Art Bianchi on 00-09-5066Oiaaemq (U) [Mass/Vol] Trace mg/dLNegSelect Medical Specialty Hospital - Southeast OhioProtein [Mass/volume] in Serum or PlasmaOrdered By: Art Bianchi on 36-11-1956Fivbsdf [Mass/Vol]7.3 g/dL 6.1-7.9[facility] Md, Cancer CenterRBC Auto (Bld) [#/Vol]Ordered By: Art Bianchi on 23-28-1622YHM (Bld) [#/Vol]5.14 10*6/uL4.10-5.10Genesis Hospitalerum or plasma alanine aminotransferase measurement without P-5'-P (enzymatic activiOrdered By: Art Bianchi on 86-42-8770QGJ No additional P-5'-P [Catalytic activity/Vol]24 U/S62-58AvagbotbnGenesis Hospitalerum or plasma albumin/globulin mass ratioOrdered By: Art Bianchi on 11-07-2022 Albumin/Globulin [Mass ratio]1.7 {ratio}Genesis Hospitalerum or plasma alkaline phosphatase measurement (enzymatic activity/volume)Ordered By: Art Bianchi on 18-27-9567TOL [Catalytic activity/Vol]60 U/W98-63ZdbazybsgGenesis Hospitalerum or plasma anion gap determinationOrdered By: Art Bianchi on 09-86-6930Adtrj gap [Moles/Vol]12.2 mmol/L6.0-15.0Genesis Hospitalerum or plasma aspartate aminotransferase measurement (enzymatic activity/volume)Ordered By: Art Bianchi on 08-15-5158GBZ [Catalytic activity/Vol]25 U/P87-07DlelmmanlGenesis Hospitalerum or plasma calcium measurement (mass/volume)Ordered By: Art Bianchi on 95-97-5607Kwbtdsn [Mass/Vol] 9.6 mg/dL8.2-10.2FCleveland Clinic Mercy Hospitalerum or plasma chloride measurement (moles/volume)Ordered By: Art Bianchi on 56-94-8573Fitgadun [Moles/Vol]98 mmol/N60-926AxqksrudfGenesis Hospitalerum or plasma creatinine measurement with calculation of estimated glomerular filtrOrdered By: Art Bianchi on 19-18-1306Utjxsawuyh and Glomerular filtration rate.predicted panel (S/P/Bld)0.84 mg/dL0.44-1.03Genesis Hospitalerum or plasma glucose measurement (mass/volume)Ordered By: Art Bianchi on 11-07-2022 Glucose [Mass/Vol]106 mg/jA64-044OecgqrvruGenesis Hospitalerum or plasma potassium measurement (moles/volume)Ordered By: Art Bianchi on 11-07-2022 Potassium [Moles/Vol]3.2 mmol/L3.5-5.1FCleveland Clinic Mercy Hospitalerum or plasma sodium measurement (moles/volume)Ordered By: Art Bianchi on 11-07-2022 Sodium [Moles/Vol]132 mmol/G372-590NmuiytrceGenesis Hospitalerum or plasma total bilirubin measurement (mass/volume)Ordered By: Art Bianchi 38-22-5862Dmvrdaqwi [Mass/Vol]0.8 mg/dL0.3-1.2FDayton Osteopathic Hospital Serum or plasma total carbon dioxide measurement (moles/volume)Ordered By: Art Bianchi on 02-85-1447CK4 [Moles/Vol]25.0 mmol/L22.0-30.0Genesis Hospitalerum or plasma urea nitrogen measurement (mass/volume)Ordered By: Art Bianchi on 58-21-5977Nxzk nitrogen [Mass/Vol]6 mg/dL9-23Genesis Hospitalpecific gravity Auto test strip (U) [Rel density]Ordered By: Art Bianchi on 09-35-9219Wvkdjsvb gravity (U) [Rel density]1.0141.001-1.030 Genesis Hospitalquamous epithelial cells detection in urine sediment by light microscopyOrdered By: Art Bianchi on 51-89-7372Dbiphyvwew cells.squamous LM Ql (Urine sed)5-9 [HPF]0-2FDayton Osteopathic Hospital Urine bacteria detection by automated methodOrdered By: Art Bianchi on 23-04-1047Sgqzkyfz Auto Ql (U)None seenNone SeenOhiohealth Arthur G.H. Bing, Md, Cancer CenterUrine clarity by refractometry automatedOrdered By: Art Bianchi on 33-88-4646Torxcir Refractometry automated (U)ClearCleHolmes County Joel Pomerene Memorial HospitalUrine glucose measurement by automated test strip (mass/volume) Ordered By: Art Bianchi on 02-47-1730Wxvfayp Auto test strip (U) [Mass/Vol] Normal mg/dLNormalOhiohealth Arthur G.H. Bing, Md, Cancer CenterUrine hemoglobin detection by automated test stripOrdered By: Art Bianchi on 27-80-7846Zdkthpyjny Auto test strip Ql (U)NegativeNegSelect Medical Specialty Hospital - Southeast OhioUrine leukocyte esterase detection by automated test stripOrdered By: Art Bianchi on 11-07-2022 Leukocyte esterase Auto test strip Ql (U)NegativeNegSelect Medical Specialty Hospital - Southeast OhioUrobilinogen Auto test strip (U) [Mass/Vol]Ordered By: Art Bianchi on 23-62-8078Uzqaoipqjfbv (U) [Mass/Vol]Normal mg/dLNormalOhiohealth Arthur G.H. Bing, Md, Cancer CenterWBC Auto (Bld) [#/Vol]Ordered By: Art Bianchi on 21-54-0163TFM (Bld) [#/Vol]10.3 10*3/uL4.5-13.5FDayton Osteopathic HospitalpH Auto test strip (U)Ordered By: Art Bianchi on 89-66-8866uC (U)8.5 [pH]5.0-9.0[facility] Md, Cancer CenterUrine culture routineOrdered By: Colten Fry on 82-10-1282Xjtckbby identified Cx Nom (U)2 DaysOhiohealth Arthur G.H. Bing, Md, Cancer Center Albumin [Mass/volume] in Serum or PlasmaOrdered By: Colten Fry on 11-02-2022 Albumin [Mass/Vol]4.8 g/dL3.2-5.5FDayton Osteopathic HospitalAmphetamine Screen Ql (U)Ordered By: Colten Fry on 49-69-3308Qyofhqylvbva Ql (U)Negative NegativeOhiohealth Arthur G.H. Bing, Md, Cancer CenterAutomated erythrocytes count in urine sediment (number/area)Ordered By: Colten Fry on 59-09-6482NSS Auto (Urine sed) [#/Area]20-49 [HPF]0-4FDayton Osteopathic HospitalAutomated leukocytes count in urine sediment (number/area)Ordered By: Colten Fry on 83-82-5346YAD Auto (Urine sed) [#/Area]5-9 [HPF]0-4FDayton Osteopathic Hospital Barbiturates [Presence] in UrineOrdered By: Colten Fry on 11-02-2022 Barbiturates Ql (U)NegativeNegativeOhiohealth Arthur G.H. Bing, Md, Cancer CenterBasophils Auto (Bld) [#/Vol]Ordered By: Colten Fry on 58-67-7461Yirkhxrjm (Bld) [#/Vol] 0.1 10*3/uL0.0-0.1FDayton Osteopathic HospitalBasophils/100 WBC Auto (Bld) Ordered By: Colten Fry on 16-53-0859Ttxpqdgzd/100 WBC (Bld)0.5 %.[facility], Cancer CenterBenzodiazepines [Presence] in UrineOrdered By: Colten Fry on 50-39-2654Ojelxjeqvllrnwm Ql (U)NegativeNegativeOhiohealth Arthur G.H. Bing, Md, Cancer CenterBilirubin Test strip Ql (U)Ordered By: Colten Fry on 11-02-2022 Bilirubin Ql (U)NegativeNegSelect Medical Specialty Hospital - Southeast OhioCannabinoids [Presence] in Urine by Screen methodOrdered By: Colten Fry on 11-02-2022 Cannabinoids Screen Ql (U)PositiveNegativeOhiohealth Arthur G.H. Bing, Md, Cancer CenterColor Auto (U)Ordered By: Colten Fry on 11-07-4884Fujcb (U)YellowYellowOhiohealth Arthur G.H. Bing, Md, Cancer CenterEosinophils Auto (Bld) [#/Vol]Ordered By: Colten Fry on 12-26-8949Djafdkctgee (Bld) [#/Vol]0.3 10*3/uL0.0-0.7FDayton Osteopathic HospitalEosinophils/100 WBC Auto (Bld)Ordered By: Colten Fry on 91-57-8983Bldbnagzcsk/100 WBC (Bld)2.1 %.[facility] Erythrocyte distribution width Auto (RBC) [Ratio]Ordered By: Colten Fry on 86-79-6626Ifmypphjpbb distribution width (RBC) [Ratio]13.7 %11.9-15.3FDayton Osteopathic HospitalEstimated glomerular filtration rate (GFR) non- AmericanOrdered By: Colten Fry on 38-03-2008YDW/1.73 sq M.predicted among non-blacks MDRD (S/P/Bld) [Vol rate/Area]> 60 mL/MinOhiohealth Arthur G.H. Bing, Md, Cancer CenterGlobulin Calc (S) [Mass/Vol]Ordered By: Colten Fry on 11-02-2022 Globulin (S) [Mass/Vol]3.1 g/dLOhiohealth Arthur G.H. Bing, Md, Cancer CenterHCG ( test) IA.rapid Ql (U)Ordered By: Colten Fry on 78-13-6260KXI ( test) Ql (U)NegativeOhiohealth Arthur G.H. Bing, Md, Cancer CenterHematocrit Auto (Bld) [Volume fraction]Ordered By: Colten Fry on 38-41-8523Uqnzxajbtm (Bld) [Volume fraction]45.3 %36.0-46.0[facility], Cancer CenterHemoglobin [Mass/volume] in BloodOrdered By: Colten Fry on 93-97-4702Heikzpoylt (Bld) [Mass/Vol]15.4 g/dL12.0-16.0[facility], Cancer CenterKetones Auto test strip (U) [Mass/Vol]Ordered By: Colten Fry on 00-13-7637Weqnqkm (U) [Mass/Vol]3+NegativeOhiohealth Arthur G.H. Bing, Md, Cancer CenterLeukocytes [#/volume] corrected for nucleated erythrocytes in Blood by Automated counOrdered By: Colten Fry on 13-68-5232CUX corrected for nucl RBC Auto (Bld) [#/Vol]11.7 10*3/uL4.5-13.5FDayton Osteopathic HospitalLymphocytes Auto (Bld) [#/Vol] Ordered By: Colten Fry on 31-07-8133Mpootwkukek (Bld) [#/Vol]2.3 10*3/uL 1.20-4.8[facility] Md, Cancer CenterLymphocytes/100 WBC Auto (Bld)Ordered By: Colten Fry on 08-46-8542Eegcqqzqtsh/100 WBC (Bld)19.6 %.[facility] Auto (RBC) [Entitic mass]Ordered By: Colten Fry on 78-30-4338RBU (RBC) [Entitic mass]28.4 pg25.0-35.0[facility] Md, Cancer CenterMCHC Auto (RBC) [Mass/Vol]Ordered By: Colten Fry on 87-94-9233AAGT (RBC) [Mass/Vol]34.0 g/dL31.0-37.0[facility], Cancer CenterMCV Auto (RBC) [Entitic vol]Ordered By: Colten Fry on 54-34-4660MHU (RBC) [Entitic vol]83.3 kV81-170TqafqfasdOhiohealth Arthur G.H. Bing, Md, Cancer CenterMonocytes Auto (Bld) [#/Vol] Ordered By: Colten Fry on 52-91-6929Bvmoeegap (Bld) [#/Vol]1.0 10*3/uL 0.1-1.00[facility], Cancer CenterMonocytes/100 WBC Auto (Bld)Ordered By: Colten Fry on 47-16-9792Ovgkrmlou/100 WBC (Bld)8.5 %.[facility], Cancer CenterNeutrophils Auto (Bld) [#/Vol]Ordered By: Colten Fry on 46-36-7491Fonobaapqes (Bld) [#/Vol]8.1 10*3/uL1.2-7.7FDayton Osteopathic HospitalNeutrophils/100 WBC Auto (Bld)Ordered By: Colten Fry on 11-02-2022 Neutrophils/100 WBC (Bld)69.3 %.[facility] Md, Cancer CenterNitrite Test strip Ql (U)Ordered By: Colten Fry on 05-36-2040Asqvaox Ql (U)Negative NegativeOhiohealth Arthur G.H. Bing, Md, Cancer CenterNo Panel InformationOrdered By: Colten Fry on -19 [LPF]0-8[facility], Cancer CenterNegative [facility]> 60 mL/MinOhiohealth Arthur G.H. Bing, Md, Cancer Center100.26[facility], Cancer CenterNo Panel InformationOrdered By: Robert Bolanos on .6 mg/dL1.6-2.6FDayton Osteopathic Hospital Nucleated erythrocytes [Presence] in Blood by Automated countOrdered By: Colten Fry on 99-01-7993Omwofkcrh RBC Auto Ql (Bld)0.1 /100{WBC}0-0.5FDayton Osteopathic HospitalPhencyclidine Screen Ql (U)Ordered By: Colten Fry on 05-64-4150Bgvbhzqrzbhtz Ql (U)NegativeNegSelect Medical Specialty Hospital - [facility] [place] Platelet mean volume Auto (Bld) [Entitic vol]Ordered By: Colten Fry on 77-52-2520Icwiwidq mean volume (Bld) [Entitic vol]7.9 fL6.3-10.7FDayton Osteopathic HospitalPlatelets Auto (Bld) [#/Vol]Ordered By: Colten Fry on 48-10-0500Hrbezowfx (Bld) [#/Vol]292 10*3/lJ035-034KdnyfqatrOhiohealth Arthur G.H. Bing, Md, Cancer CenterProtein Auto test strip (U) [Mass/Vol]Ordered By: Colten Fry on 38-64-2136Btfnken (U) [Mass/Vol]30 mg/dLNegativeOhiohealth Arthur G.H. Bing, Md, Cancer CenterProtein [Mass/volume] in Serum or PlasmaOrdered By: Colten Fry on 89-94-0420Umlooro [Mass/Vol]7.9 g/dL6.1-7.9[facility], Cancer CenterRBC Auto (Bld) [#/Vol]Ordered By: Colten Fry on 91-28-6981HTP (Bld) [#/Vol]5.43 10*6/uL4.10-5.10Genesis Hospitalerum or plasma alanine aminotransferase measurement without P-5'-P (enzymatic activiOrdered By: Colten Fry on 84-49-3412COF No additional P-5'-P [Catalytic activity/Vol]20 U/L10-60 [facility] Hospitalerum or plasma albumin/globulin mass ratio Ordered By: Colten Fry on 63-08-9499Tndbcrk/Globulin [Mass ratio]1.5 {ratio} [facility] Hospitalerum or plasma alkaline phosphatase measurement (enzymatic activity/volume)Ordered By: Colten Fry on 11-02-2022 ALP [Catalytic activity/Vol]65 U/V91-34SeeoexjwzGenesis Hospitalerum or plasma anion gap determinationOrdered By: Colten Fry on 99-12-9551Ifsga gap [Moles/Vol]14.6 mmol/L6.0-15.0[facility] Hospitalerum or plasma aspartate aminotransferase measurement (enzymatic activity/volume)Ordered By: Colten Fry on 45-69-3485TIB [Catalytic activity/Vol]19 U/T90-12YkmdetdpiGenesis Hospitalerum or plasma calcium measurement (mass/volume)Ordered By: Colten Fry on 18-46-6911Xihgodh [Mass/Vol]9.6 mg/dL8.2-10.2FCleveland Clinic Mercy Hospitalerum or plasma chloride measurement (moles/volume) Ordered By: Colten Fry on 68-61-4570Laxrxctt [Moles/Vol]95 mmol/L95-114 [facility] Hospitalerum or plasma creatinine measurement with calculation of estimated glomerular filtrOrdered By: Colten Fry on 11-02-2022 Creatinine and Glomerular filtration rate.predicted panel (S/P/Bld)0.88 mg/dL 0.44-1.03[facility] Hospitalerum or plasma glucose measurement (mass/volume)Ordered By: Colten Fry on 34-45-5621Aspaibi [Mass/Vol]95 mg/dL 70-100Gen[facility] Hospitalerum or plasma potassium measurement (moles/volume)Ordered By: Colten Fry on 68-66-9623Jqekdwgwr [Moles/Vol]2.9 mmol/L3.5-5.1FCleveland Clinic Mercy Hospitalerum or plasma sodium measurement (moles/volume)Ordered By: Colten Fry on 66-98-2650Mauank [Moles/Vol]134 mmol/O974-402ZrzfeadfuGenesis Hospitalerum or plasma total bilirubin measurement (mass/volume)Ordered By: Colten Fry on 68-11-0291Agrjqcmba [Mass/Vol]1.8 mg/dL0.3-1.2FCleveland Clinic Mercy Hospitalerum or plasma total carbon dioxide measurement (moles/volume)Ordered By: Colten Fry on 07-81-1962PA9 [Moles/Vol]27.3 mmol/L22.0-30.0[facility] Serum or plasma urea nitrogen measurement (mass/volume)Ordered By: Colten Fry on 44-68-1730Fnqe nitrogen [Mass/Vol]24 mg/dL9-23Gen[facility] Hospitalpecific gravity Auto test strip (U) [Rel density]Ordered By: Colten Fry on 81-52-5004Oewpsszu gravity (U) [Rel density]1.0251.001-1.030Gen[facility] Hospitalquamous epithelial cells detection in urine sediment by light microscopyOrdered By: Colten Fry on 08-72-7560Jogajhjwxh cells.squamous LM Ql (Urine sed)10-19 [HPF]0-[address] [place], [place] [address]Urine bacteria detection by automated methodOrdered By: Colten Fry on 06-24-8924Xlboiouc Auto Ql (U)None seenNone SeenOhiohealth Arthur G.H. Bing, Md, Cancer CenterUrine clarity by refractometry automatedOrdered By: Colten Fry on 32-27-3747Amtzdvc Refractometry automated (U)CloudyClearFDayton Osteopathic HospitalUrine cocaine detectionOrdered By: Colten Fry on 20-37-2460Dpcagpd Ql (U)Negative NegativeOhiohealth Arthur G.H. Bing, Md, Cancer CenterUrine culture routineOrdered By: Colten Fry on 38-99-4586Mlcrghek identified Cx Nom (U)2 DaysOhiohealth Arthur G.H. Bing, Md, Cancer CenterUrine culture routineOrdered By: Art Bianchi on 89-70-3123Xetlvbqa identified Cx Nom (U)2 DaysOhiohealth Arthur G.H. Bing, Md, Cancer CenterUrine glucose measurement by automated test strip (mass/volume)Ordered By: Colten Fry on 09-28-6807Azdxiau Auto test strip (U) [Mass/Vol]Normal mg/dLNoThe Christ HospitalUrine hemoglobin detection by automated test stripOrdered By: Colten Fry on 52-39-5642Yqlfvwpkev Auto test strip Ql (U)3+Negative [facility] CenterUrine leukocyte esterase detection by automated test stripOrdered By: Colten Fry on 32-48-4618Swbvdybih esterase Auto test strip Ql (U)2+NegativeOhiohealth Arthur G.H. Bing, Md, Cancer CenterUrobilinogen Auto test strip (U) [Mass/Vol]Ordered By: Colten Fry on 55-35-2422Jbdzdjdknmex (U) [Mass/Vol]Normal mg/dLNoThe Christ HospitalWBC Auto (Bld) [#/Vol]Ordered By: Colten Fry on 00-95-8891UTW (Bld) [#/Vol]11.7 10*3/uL 4.5-13.5FDayton Osteopathic HospitalpH Auto test strip (U)Ordered By: Colten Fry on 02-34-9227pB (U)7.0 [pH]5.0-9.0[facility], Cancer CenterAlbumin [Mass/volume] in Serum or PlasmaOrdered By: Art Bianchi on 09-36-3386Wlhpvww [Mass/Vol]5.1 g/dL3.2-5.5FDayton Osteopathic Hospital Automated erythrocytes count in urine sediment (number/area)Ordered By: Art Bianchi on 01-72-2237JIS Auto (Urine sed) [#/Area]Innumerable [HPF]0-4FDayton Osteopathic HospitalAutomated leukocytes count in urine sediment (number/area)Ordered By: Art Bianchi on 44-45-5864MRL Auto (Urine sed) [#/Area] 10-19 [HPF]0-4FDayton Osteopathic HospitalBasophils Auto (Bld) [#/Vol] Ordered By: Art Bianchi on 90-27-2656Vcfxowboc (Bld) [#/Vol]0.0 10*3/uL0.0-0.1 [facility] Cancer CenterBasophils/100 WBC Auto (Bld)Ordered By: Art Bianchi on 50-26-9780Ebitayzkx/100 WBC (Bld)0.3 %.[facility], Cancer CenterBilirubin Test strip Ql (U)Ordered By: Art Bianchi on 87-68-9579Turtmhjfj Ql (U)NegativeNegativeOhiohealth Arthur G.H. Bing, Md, Cancer CenterColor Auto (U)Ordered By: Art Bainchi on 42-83-2651Ylbqm (U)RedYellowOhiohealth Arthur G.H. Bing, Md, Cancer Center Eosinophils Auto (Bld) [#/Vol]Ordered By: Art Bianchi on 82-57-6036Pfrcnyjowav (Bld) [#/Vol]0.1 10*3/uL0.0-0.7FDayton Osteopathic HospitalEosinophils/100 WBC Auto (Bld)Ordered By: Art Bianchi on 80-99-1280Oatikjvsciu/100 WBC (Bld)1.0 %.[facility], Cancer CenterErythrocyte distribution width Auto (RBC) [Ratio]Ordered By: Art Bianchi on 41-83-9635Daezveyhznv distribution width (RBC) [Ratio]14.0 %11.9-15.3FDayton Osteopathic HospitalEstimated glomerular filtration rate (GFR) non- AmericanOrdered By: Art Bianchi on 10-31-2022 GFR/1.73 sq M.predicted among non-blacks MDRD (S/P/Bld) [Vol rate/Area]> 60 mL/MinOhiohealth Arthur G.H. Bing, Md, Cancer CenterGlobulin Calc (S) [Mass/Vol]Ordered By: Art Bianchi on 27-47-7101Ksibmzyl (S) [Mass/Vol]3.1 g/dLOhiohealth Arthur G.H. Bing, Md, Cancer CenterHCG ( test) IA.rapid Ql (U)Ordered By: Art Bianchi on 60-82-6568USR ( test) Ql (U)NegativeOhiohealth Arthur G.H. Bing, Md, Cancer Center Hematocrit Auto (Bld) [Volume fraction]Ordered By: Art Bianchi on 10-31-2022 Hematocrit (Bld) [Volume fraction]45.0 %36.0-46.0[facility], Cancer CenterHemoglobin [Mass/volume] in BloodOrdered By: Art Bianchi on 10-31-2022 Hemoglobin (Bld) [Mass/Vol]15.2 g/dL12.0-16.0[facility] Ketones Auto test strip (U) [Mass/Vol]Ordered By: Art Bianchi on 10-31-2022 Ketones (U) [Mass/Vol]3+NegativeOhiohealth Arthur G.H. Bing, Md, Cancer CenterLeukocytes [#/volume] corrected for nucleated erythrocytes in Blood by Automated coun Ordered By: Art Bianchi on 84-39-7181JRQ corrected for nucl RBC Auto (Bld) [#/Vol]14.0 10*3/uL4.5-13.5FDayton Osteopathic HospitalLymphocytes Auto (Bld) [#/Vol]Ordered By: Art Bianchi on 04-17-4785Zefacctybtk (Bld) [#/Vol]2.2 10*3/uL1.20-4.8[facility] Md, Cancer CenterLymphocytes/100 WBC Auto (Bld) Ordered By: Art Bianchi on 23-98-3495Sstyhksecmj/100 WBC (Bld)15.5 %.[facility] Auto (RBC) [Entitic mass]Ordered By: Art Bianchi on 90-26-7069DPJ (RBC) [Entitic mass]28.6 pg25.0-35.0[facility] Md, Cancer CenterMCHC Auto (RBC) [Mass/Vol]Ordered By: Art Bianchi on 49-98-7066IKPS (RBC) [Mass/Vol]33.7 g/dL31.0-37.0[facility], Cancer CenterMCV Auto (RBC) [Entitic vol]Ordered By: Art Bianchi on 41-02-5947HVX (RBC) [Entitic vol]85.0 fL 78-102Ohio[facility] Md, Cancer CenterMonocyte distribution width [Entitic volume] in Blood by AutomatedOrdered By: Art Bianchi on 68-52-3408Fiunesyo distribution width Auto (Bld) [Entitic vol]14.69 %0.00-20.00[facility], Cancer CenterMonocytes Auto (Bld) [#/Vol]Ordered By: Art Bianchi on 10-31-2022 Monocytes (Bld) [#/Vol]1.3 10*3/uL0.1-1.00[facility] Monocytes/100 WBC Auto (Bld)Ordered By: Art Bianchi on 61-62-8224Dwdrqpnvj/100 WBC (Bld)9.1 %.[facility], Cancer CenterNeutrophils Auto (Bld) [#/Vol] Ordered By: rAt Bianchi on 65-37-9358Mrnpvlsrhtm (Bld) [#/Vol]10.4 10*3/uL 1.2-7.7FDayton Osteopathic HospitalNeutrophils/100 WBC Auto (Bld)Ordered By: rAt Bianchi on 57-66-6120Miiiqgwmnww/100 WBC (Bld)74.1 %.[facility], Cancer CenterNitrite Test strip Ql (U)Ordered By: Art Bianchi on 10-31-2022 Nitrite Ql (U)NegativeNegSelect Medical Specialty Hospital - Southeast OhioNo Panel InformationOrdered By: Art Bianchi on 12-80-92465-8 [LPF]0-8[facility]> 60 mL/MinOhiohealth Arthur G.H. Bing, Md, Cancer Center29.0 U/B72-55AhzqnkfamOhiohealth Arthur G.H. Bing, Md, Cancer Center102.97[facility], Cancer CenterNucleated erythrocytes [Presence] in Blood by Automated countOrdered By: Art Bianchi on 76-01-9181Cblbgjizh RBC Auto Ql (Bld)0.1 /100{WBC}0-0.5FDayton Osteopathic HospitalPlatelet mean volume Auto (Bld) [Entitic vol]Ordered By: Art Bianchi on 92-83-2839Jenvjcbm mean volume (Bld) [Entitic vol]8.3 fL6.3-10.7 [facility] CenterPlatelets Auto (Bld) [#/Vol]Ordered By: Art Bianchi on 17-46-4644Unxxpsfcy (Bld) [#/Vol]337 10*3/xM788-784YufbxkfkvOhiohealth Arthur G.H. Bing, Md, Cancer CenterProtein Auto test strip (U) [Mass/Vol]Ordered By: Art Bianchi on 21-10-5269Madexcd (U) [Mass/Vol]100 mg/dLNegativeOhiohealth Arthur G.H. Bing, Md, Cancer CenterProtein [Mass/volume] in Serum or PlasmaOrdered By: Art Bianchi on 22-01-7354Glrchdw [Mass/Vol]8.2 g/dL6.1-7.9[facility], Cancer CenterRBC Auto (Bld) [#/Vol]Ordered By: Art Bianchi on 86-79-8167SLH (Bld) [#/Vol]5.29 10*6/uL4.10-5.10[facility] Hospitalerum or plasma alanine aminotransferase measurement without P-5'-P (enzymatic activiOrdered By: Art Bianchi on 40-31-0570KZW No additional P-5'-P [Catalytic activity/Vol]25 U/L10-60 [facility] Hospitalerum or plasma albumin/globulin mass ratio Ordered By: Art Bianchi on 24-98-8260Hyjaipe/Globulin [Mass ratio]1.6 {ratio} [facility] Hospitalerum or plasma alkaline phosphatase measurement (enzymatic activity/volume)Ordered By: Art Bianchi on 74-15-5099MBA [Catalytic activity/Vol]62 U/I53-73AscilsyduGenesis Hospitalerum or plasma anion gap determinationOrdered By: Art Bianchi on 90-93-5323Zfqkv gap [Moles/Vol]16.8 mmol/L6.0-15.0[facility] Hospitalerum or plasma aspartate aminotransferase measurement (enzymatic activity/volume)Ordered By: Art Bianchi on 94-11-8985GBH [Catalytic activity/Vol]25 U/P62-08BwfizmrpeGenesis Hospitalerum or plasma calcium measurement (mass/volume)Ordered By: Art Bianchi on 99-25-7858Xxqpzen [Mass/Vol]9.9 mg/dL8.2-10.2FCleveland Clinic Mercy Hospitalerum or plasma chloride measurement (moles/volume) Ordered By: Art Bianchi on 10-28-5073Gypmgvaz [Moles/Vol]96 mmol/L95-114 [facility] Hospitalerum or plasma creatinine measurement with calculation of estimated glomerular filtrOrdered By: Art Bianchi on 10-31-2022 Creatinine and Glomerular filtration rate.predicted panel (S/P/Bld)0.89 mg/dL 0.44-1.03[facility] Hospitalerum or plasma glucose measurement (mass/volume)Ordered By: Art Bianchi on 02-45-4235Udegfew [Mass/Vol]120 mg/dL 70-100[facility] Hospitalerum or plasma potassium measurement (moles/volume)Ordered By: Art Bianchi on 82-90-0017Zdrrdyrif [Moles/Vol]3.2 mmol/L3.5-5.1FCleveland Clinic Mercy Hospitalerum or plasma sodium measurement (moles/volume)Ordered By: Art Bianchi on 52-00-0010Xrhsjq [Moles/Vol]132 mmol/L 136-146Gen[facility] Hospitalerum or plasma total bilirubin measurement (mass/volume)Ordered By: Art Bianchi on 40-11-0466Yncfuicpk [Mass/Vol]1.7 mg/dL0.3-1.2FCleveland Clinic Mercy Hospitalerum or plasma total carbon dioxide measurement (moles/volume)Ordered By: Art Bianchi on 10-31-2022 CO2 [Moles/Vol]22.4 mmol/L22.0-30.0[facility] Hospitalerum or plasma urea nitrogen measurement (mass/volume)Ordered By: Art Bianchi on 63-14-6515Eoxk nitrogen [Mass/Vol]28 mg/dL9-23[facility] Specific gravity Auto test strip (U) [Rel density]Ordered By: Art Bianchi on 97-57-3666Aqugexzz gravity (U) [Rel density]1.0301.001-1.030Gen[facility] Hospitalquamous epithelial cells detection in urine sediment by light microscopyOrdered By: Art Bianchi on 17-11-7837Nqagyskumw cells.squamous LM Ql (Urine sed)10-19 [HPF]0-2FDayton Osteopathic HospitalUrine bacteria detection by automated methodOrdered By: Art Bianchi on 01-99-3654Iidbhjzp Auto Ql (U)None seenNone SeenOhiohealth Arthur G.H. Bing, Md, Cancer CenterUrine clarity by refractometry automatedOrdered By: Art Bianchi on 13-17-0636Cnyojiz Refractometry automated (U)CloudyClearFDayton Osteopathic HospitalUrine culture routineOrdered By: Art Bianchi 63-88-6135Skpjcoxl identified Cx Nom (U)2 DaysOhiohealth Arthur G.H. Bing, Md, Cancer CenterUrine glucose measurement by automated test strip (mass/volume)Ordered By: Art Bianchi on [id number] Auto test strip (U) [Mass/Vol]Normal mg/dLNormalOhiohealth Arthur G.H. Bing, Md, Cancer CenterUrine hemoglobin detection by automated test stripOrdered By: Art Bianchi on [id number] Auto test strip Ql (U)3+NegativeOhiohealth Arthur G.H. Bing, Md, Cancer CenterUrine leukocyte esterase detection by automated test stripOrdered By: Art Bianchi on [id number] esterase Auto test strip Ql (U)2+Negative [facility] Md, Cancer CenterUrobilinogen Auto test strip (U) [Mass/Vol] Ordered By: Art Bianchi on [id number] (U) [Mass/Vol]Normal mg/dL NormalOhiohealth Arthur G.H. Bing, Md, Cancer CenterWBC Auto (Bld) [#/Vol]Ordered By: Art Bianchi on 76-52-3128WDL (Bld) [#/Vol]14.0 10*3/uL4.5-13.5FDayton Osteopathic HospitalpH Auto test strip (U)Ordered By: Art Bianchi on 84-16-8446rX (U) 6.5 [pH]5.0-9.0[facility], Cancer CenterBasophils Auto (Bld) [#/Vol] Ordered By: Ravi Arguello on 33-37-9688Ngwwqozyd (Bld) [#/Vol]0.0 10*3/uL0.0-0.1 [facility] CenterBasophils/100 WBC Auto (Bld)Ordered By: Ravi Arguello on 05-84-8284Jvqefulky/100 WBC (Bld)0.3 %.[facility] CenterBody fluid albumin measurement (mass/volume)Ordered By: Ravi Arguello on 39-06-5099Mufpogs (Body fld) [Mass/Vol]5.2 g/dL3.2-5.5FDayton Osteopathic HospitalCreatinine and Glomerular filtration rate.predicted panel (S/P/Bld) Ordered By: Ravi Arguello on 83-88-7112Xvazhjknut [Mass/Vol]0.85 mg/dL0.44-1.03 [facility] CenterDirect bilirubin measurementOrdered By: Ravi Arguello on 56-28-0910Cosmgmned.direct [Mass/Vol]0.1 mg/dL0.0-0.4FDayton Osteopathic HospitalEosinophils Auto (Bld) [#/Vol]Ordered By: Ravi Arguello on 64-27-8631Cvbfxxrlwwv (Bld) [#/Vol]0.0 10*3/uL0.0-0.7FDayton Osteopathic HospitalEosinophils/100 WBC Auto (Bld)Ordered By: Ravi Arguello on 10-29-2022 Eosinophils/100 WBC (Bld)0.1 %.[facility] CenterErythrocyte distribution width Auto (RBC) [Ratio]Ordered By: Ravi Arguello on 10-29-2022 Erythrocyte distribution width (RBC) [Ratio]14.4 %11.9-15.3FDayton Osteopathic HospitalEstimated glomerular filtration rate (GFR) non- Ordered By: Ravi Arguello on 36-26-3088SBJ/1.73 sq M.predicted among non-blacks MDRD (S/P/Bld) [Vol rate/Area]> 60 mL/MinOhiohealth Arthur G.H. [facility], Md, Cancer Center Globulin Calc (S) [Mass/Vol]Ordered By: Ravi Arguello on 55-20-2131Xvdarvdr (S) [Mass/Vol]3.7 g/dLOhiohealth Arthur G.H. Bing, Md, Cancer CenterHematocrit Auto (Bld) [Volume fraction]Ordered By: Ravi Arguello on 94-03-5338Lszkkqmedk (Bld) [Volume fraction]42.9 %36.0-46.0[facility] CenterHemoglobin [Mass/volume] in BloodOrdered By: Ravi Arguello on 42-17-1729Yflmhmvgis (Bld) [Mass/Vol]14.3 g/dL12.0-16.0[facility] CenterLaboratory - Chemistry and Chemistry - challengeOrdered By: Ravi Arguello on 84-35-8210Xlcbbx [Catalytic activity/Vol]25.0 U/V69-35PbsejiahxOhiohealth Arthur G.H. Bing, Md, Cancer CenterLeukocytes [#/volume] corrected for nucleated erythrocytes in Blood by Automated coun Ordered By: Ravi Arguello on 59-33-8915ENC corrected for nucl RBC Auto (Bld) [#/Vol]13.7 10*3/uL4.5-13.5FDayton Osteopathic HospitalLymphocytes Auto (Bld) [#/Vol]Ordered By: Ravi Arguello on 30-76-1966Hrsijpevgif (Bld) [#/Vol]1.7 10*3/uL1.20-4.8[facility], Cancer CenterLymphocytes/100 WBC Auto (Bld) Ordered By: Ravi Arguello on 05-55-2095Ixlltguyvwm/100 WBC (Bld)12.4 %.[facility] Auto (RBC) [Entitic mass]Ordered By: Ravi Arguello on 67-85-3097UER (RBC) [Entitic mass]28.4 pg25.0-35.0[facility], Cancer CenterMCHC Auto (RBC) [Mass/Vol]Ordered By: Ravi Arguello on 39-96-1801FXCZ (RBC) [Mass/Vol]33.3 g/dL31.0-37.0[facility] CenterMCV Auto (RBC) [Entitic vol]Ordered By: Ravi Arguello on 71-35-4148THE (RBC) [Entitic vol]85.1 dO52-803GhewhyluxOhiohealth Arthur G.H. Bing, Md, Cancer CenterMonocyte distribution width [Entitic volume] in Blood by AutomatedOrdered By: Ravi Arguello on 38-80-9898Bdczeped distribution width Auto (Bld) [Entitic vol]16.57 %0.00-20.00[facility] CenterMonocytes Auto (Bld) [#/Vol]Ordered By: Ravi Arguello on 10-29-2022 Monocytes (Bld) [#/Vol]0.9 10*3/uL0.1-1.00[facility] Monocytes/100 WBC Auto (Bld)Ordered By: Ravi Arguello on 37-96-8733Vchppctgk/100 WBC (Bld)6.8 %.[facility] Cancer CenterNeutrophils Auto (Bld) [#/Vol] Ordered By: Ravi Arguello on 68-07-9380Ovvkpljyoch (Bld) [#/Vol]11.0 10*3/uL 1.2-7.7FDayton Osteopathic HospitalNeutrophils/100 WBC Auto (Bld)Ordered By: Ravi Arguello on 79-26-0956Bcxpojolecl/100 WBC (Bld)80.4 %.[facility] CenterNo Panel InformationOrdered By: Raiv Arguello on 10-29-2022 Estimated GFR ()> 60 mL/MinOhiohealth Arthur G.H. [facility], Md, Cancer Center Comment on above:GFR estimated reference range: According to KDOQI guidelines, <60 ml/min/1.73m2 is sufficient todiagnose a patient with chronic kidney disease.Pharmacy Creatinine Clearance (Brkm850.83[facility]> 60 mL/MinOhiohealth Arthur G.H. [facility], Md, Cancer Center25.0 U/U31-74KzbxktbnbOhiohealth Arthur G.H. Bing, Md, Cancer Center105.83[facility], Cancer CenterNucleated erythrocytes [Presence] in Blood by Automated countOrdered By: Ravi Arguello on 03-30-6995Jlfnlgokk RBC Auto Ql (Bld)0.0 /100{WBC}0-0.5FDayton Osteopathic HospitalPlatelet mean volume Auto (Bld) [Entitic vol]Ordered By: Ravi Arguello on 33-40-6723Quxrckum mean volume (Bld) [Entitic vol]8.4 fL6.3-10.7 [facility] CenterPlatelets Auto (Bld) [#/Vol]Ordered By: Ravi Arguello on 79-09-9405Rvggnmgpi (Bld) [#/Vol]355 10*3/tP111-836IkxlgrvyxOhiohealth Arthur G.H. Bing, Md, Cancer CenterProtein [Mass/volume] in Serum or PlasmaOrdered By: Ravi Arguello on 61-14-0057Qsxaosz [Mass/Vol]8.9 g/dL6.1-7.9[facility] RBC Auto (Bld) [#/Vol]Ordered By: Ravi Arguello on 25-55-1979TNY (Bld) [#/Vol] 5.04 10*6/uL4.10-5.10Genesis Hospitalerum or plasma alanine aminotransferase measurement without P-5'-P (enzymatic activiOrdered By: Ravi Arguello on 94-61-9052ZKS No additional P-5'-P [Catalytic activity/Vol]24 U/L10-60 [facility] Hospitalerum or plasma albumin/globulin mass ratio Ordered By: Ravi Arguello on 14-75-5667Wjtskoz/Globulin [Mass ratio]1.4 {ratio} [facility] Hospitalerum or plasma alkaline phosphatase measurement (enzymatic activity/volume)Ordered By: Ravi Arguello on 86-74-5730GIP [Catalytic activity/Vol]68 U/Q51-31VlnkdrzcrGenesis Hospitalerum or plasma anion gap determinationOrdered By: Ravi Arguello on 89-43-0917Amqrk gap [Moles/Vol]19.9 mmol/L6.0-15.0[facility] Hospitalerum or plasma aspartate aminotransferase measurement (enzymatic activity/volume)Ordered By: Ravi Arguello on 61-96-8022DSP [Catalytic activity/Vol]20 U/B25-19SsqyjgvnaGenesis Hospitalerum or plasma calcium measurement (mass/volume)Ordered By: Ravi Arguello on 39-75-3372Sidimtg [Mass/Vol]10.4 mg/dL8.2-10.2FCleveland Clinic Mercy Hospitalerum or plasma chloride measurement (moles/volume) Ordered By: Ravi Arguello on 94-36-6236Sczqfgeg [Moles/Vol]100 mmol/L95-114 [facility] Hospitalerum or plasma creatinine measurement with calculation of estimated glomerular filtrOrdered By: Ravi Arguello on 10-29-2022 Creatinine and Glomerular filtration rate.predicted panel (S/P/Bld)0.85 mg/dL 0.44-1.03[facility] Hospitalerum or plasma glucose measurement (mass/volume)Ordered By: Ravi Arguello on 39-94-6992Ayvfwkk [Mass/Vol]114 mg/dL 70-100[facility], Cancer CenterComment on above:ADA recommended reference rangeRandom Glucose Reference Range is dependent on time and content of last meal. Glucose of more than 200 mg/dL in a nonstressed, ambulatory subject supports the diagnosisof Diabetes Mellitus.Serum or plasma non- glucuronidated bilirubin measurement (mass/volume)Ordered By: Ravi Arguello on 82-34-9611Cpaidpiaf.indirect [Mass/Vol]1.1 mg/dLGenesis Hospitalerum or plasma potassium measurement (moles/volume)Ordered By: Ravi Arguello on 88-21-5870Nonepntcc [Moles/Vol]3.3 mmol/L3.5-5.1FCleveland Clinic Mercy Hospitalerum or plasma sodium measurement (moles/volume)Ordered By: Ravi Arguello on 31-60-0851Viqacd [Moles/Vol]137 mmol/T223-010LmarhkmsxGenesis Hospitalerum or plasma total bilirubin measurement (mass/volume)Ordered By: Ravi Arguello on 79-88-3260Dckeabrlw [Mass/Vol]1.2 mg/dL0.3-1.2FCleveland Clinic Mercy Hospitalerum or plasma total carbon dioxide measurement (moles/volume)Ordered By: Ravi Arguello on 09-18-7344KL2 [Moles/Vol]20.4 mmol/L 22.0-30.0[facility] Hospitalerum or plasma urea nitrogen measurement (mass/volume)Ordered By: Ravi Arguello on 72-01-3497Dabp nitrogen [Mass/Vol]21 mg/dL9-23[facility] CenterWBC Auto (Bld) [#/Vol] Ordered By: Ravi Arguello on 16-31-8917NDB (Bld) [#/Vol]13.7 10*3/uL4.5-13.5 [facility] CenterBasophils Auto (Bld) [#/Vol]Ordered By: Modesta Chand on 25-07-5640Qktwmbtfw (Bld) [#/Vol]0.0 10*3/uL0.0-0.1 [facility] CenterBasophils/100 WBC Auto (Bld)Ordered By: Modesta Chand on 30-63-8487Encnwxwjl/100 WBC (Bld)0.3 %.[facility] CenterBody fluid albumin measurement (mass/volume)Ordered By: Modesta Chand on 21-02-8446Fanuuep (Body fld) [Mass/Vol]4.7 g/dL3.2-5.5FDayton Osteopathic HospitalCreatinine and Glomerular filtration rate.predicted panel (S/P/Bld)Ordered By: Modesta Chand on 37-59-0082Bbmlijhktj [Mass/Vol]0.90 mg/dL0.44-1.03[facility] CenterEosinophils Auto (Bld) [#/Vol] Ordered By: Modesta Chand on 09-24-0384Ldbxqvjmvgy (Bld) [#/Vol]0.3 10*3/uL0.0-0.7FDayton Osteopathic HospitalEosinophils/100 WBC Auto (Bld) Ordered By: Modesta Chand on 03-12-9006Lrygcthzzsf/100 WBC (Bld)2.2 %. [facility] CenterErythrocyte distribution width Auto (RBC) [Ratio]Ordered By: Modesta Chand on 65-67-5280Qokrxuqhoej distribution width (RBC) [Ratio]14.0 %11.9-15.3FDayton Osteopathic HospitalEstimated glomerular filtration rate (GFR) non- AmericanOrdered By: Modesta Chand on 59-86-3131QAD/1.73 sq M.predicted among non-blacks MDRD (S/P/Bld) [Vol rate/Area]> 60 mL/MinOhiohealth Arthur G.H. Bing, Md, Cancer CenterGlobulin Calc (S) [Mass/Vol]Ordered By: Modesta Chand on 30-19-1978Eoswjtfh (S) [Mass/Vol] 2.5 g/dLOhiohealth Arthur G.H. Bing, Md, Cancer CenterHematocrit Auto (Bld) [Volume fraction] Ordered By: Modesta Chand on 27-43-7845Cuzzssdzmh (Bld) [Volume fraction] 46.5 %36.0-46.0[facility] CenterHemoglobin [Mass/volume] in BloodOrdered By: Modesta Chand on 07-72-5795Lbqmwhfdcg (Bld) [Mass/Vol] 15.6 g/dL12.0-16.0[facility] CenterLaboratory - Chemistry and Chemistry - challengeOrdered By: Modesta Chand on 74-05-9663Hdumgc [Catalytic activity/Vol]27.0 U/U98-27CxpkfbopeOhiohealth Arthur G.H. Bing, Md, Cancer CenterLaboratory - Hematology and Cell countsOrdered By: Modesta Chand on 08-27-2022 Nucleated RBC/100 WBC (Bld) [Ratio]0.1 %0-0.5FDayton Osteopathic Hospital Leukocytes [#/volume] in Blood by Automated countOrdered By: Modesta Chand on 65-19-1113KFC (Bld) [#/Vol]13.4 10*3/uL4.5-13.5FDayton Osteopathic HospitalLymphocytes Auto (Bld) [#/Vol]Ordered By: oMdesta Chand on 91-79-3915Xwtzekaslxq (Bld) [#/Vol]3.1 10*3/uL1.20-4.8[facility], Cancer CenterLymphocytes/100 WBC Auto (Bld)Ordered By: Modesta Chand on 62-64-1919Hdsfivvfaud/100 WBC (Bld)22.9 %.[facility] Auto (RBC) [Entitic mass]Ordered By: Modesta Chand on 41-46-7210BVO (RBC) [Entitic mass]28.4 pg25.0-35.0[facility], Cancer CenterMCHC Auto (RBC) [Mass/Vol]Ordered By: Modesta Chand on 56-71-8361FLJM (RBC) [Mass/Vol]33.5 g/dL31.0-37.0[facility] CenterMCV Auto (RBC) [Entitic vol] Ordered By: Modesta Chand on 50-21-1728ZLG (RBC) [Entitic vol]84.8 fL 78-102[facility], Cancer CenterMonocytes Auto (Bld) [#/Vol]Ordered By: Modesta Chand on 71-64-9964Joccbzsbx (Bld) [#/Vol]1.2 10*3/uL0.1-1.00 [facility] CenterMonocytes/100 WBC Auto (Bld)Ordered By: Modesta Chand on 80-32-4612Tonzymuub/100 WBC (Bld)9.1 %.[facility], Cancer CenterNeutrophils Auto (Bld) [#/Vol]Ordered By: Modesta Chand on 44-87-5923Suzylhrlczo (Bld) [#/Vol]8.8 10*3/uL1.2-7.7FDayton Osteopathic HospitalNeutrophils/100 WBC Auto (Bld)Ordered By: Modesta Chand on 91-18-5915Reawxqlapgh/100 WBC (Bld)65.5 %.[facility] CenterNo Panel InformationOrdered By: Modesta Chand on 67-68-1814Emdwedlrz GFR ()> 60 mL/MinOhiohealth Arthur G.H. Bing, Md, Cancer CenterComment on above: GFR estimated reference range: According to KDOQI guidelines, <60 ml/min/1.73m2 is sufficient todiagnose a patient with chronic kidney disease.Pharmacy Creatinine Clearance (ChemN/[facility]13.4 10*3/uL 4.5-13.5FDayton Osteopathic Hospital0.1 %0-0.5FDayton Osteopathic Hospital> 60 mL/MinOhiohealth Arthur G.H. Bing, Md, Cancer Center27.0 U/X11-00BerstmmvfOhiohealth Arthur G.H. Bing, Md, Cancer CenterN/[facility] HospitalPlatelet mean volume Auto (Bld) [Entitic vol]Ordered By: Modesta Chand on 00-76-7771Tchuuhho mean volume (Bld) [Entitic vol]8.9 fL6.3-10.7FDayton Osteopathic Hospital Platelets Auto (Bld) [#/Vol]Ordered By: Modesta Chand on 08-27-2022 Platelets (Bld) [#/Vol]373 10*3/jN636-409FotqrdhuwOhiohealth Arthur G.H. [facility], Md, Cancer Center Protein [Mass/volume] in Serum or PlasmaOrdered By: Modesta Chand on 34-35-9760Zatphbi [Mass/Vol]7.2 g/dL6.1-7.9[facility], Cancer CenterRBC Auto (Bld) [#/Vol]Ordered By: Modesta Chand on 28-36-3392WUE (Bld) [#/Vol] 5.49 10*6/uL4.10-5.10[facility] Hospitalerum or plasma alanine aminotransferase measurement without P-5'-P (enzymatic activiOrdered By: Modesta Chand on 24-47-8304JGL No additional P-5'-P [Catalytic activity/Vol]20 U/Y99-37AipjwnzrnGenesis Hospitalerum or plasma albumin/globulin mass ratioOrdered By: Modesta Chand on 08-27-2022 Albumin/Globulin [Mass ratio]1.9 {ratio}[facility] Hospitalerum or plasma alkaline phosphatase measurement (enzymatic activity/volume)Ordered By: Modesta Chand on 21-00-7138RHF [Catalytic activity/Vol]63 U/L32-92 [facility] Hospitalerum or plasma amylase measurement (enzymatic activity/volume)Ordered By: Modesta Chand on 22-91-4640Djcrlip [Catalytic activity/Vol]25 U/C22-303VncigagkwGenesis Hospitalerum or plasma anion gap determinationOrdered By: Modesta Chand on 15-07-4645Otulk gap [Moles/Vol]22.5 mmol/L6.0-15.0[facility] Hospitalerum or plasma aspartate aminotransferase measurement (enzymatic activity/volume)Ordered By: Modesta Chand on 51-85-3041YIN [Catalytic activity/Vol]18 U/L10-42 [facility] Hospitalerum or plasma calcium measurement (mass/volume)Ordered By: Modesta Chand on 00-49-6649Iopafse [Mass/Vol]10.1 mg/dL8.2-10.2FCleveland Clinic Mercy Hospitalerum or plasma chloride measurement (moles/volume)Ordered By: Modesta Chand on 59-81-7427Xgfyhyzf [Moles/Vol]89 mmol/V07-249YjhprqamuGenesis Hospitalerum or plasma creatinine measurement with calculation of estimated glomerular filtrOrdered By: Modesta Chand on 26-94-2866Kozihelype and Glomerular filtration rate.predicted panel (S/P/Bld)0.90 mg/dL0.44-1.03[facility] Hospitalerum or plasma glucose measurement (mass/volume)Ordered By: Modesta Chand on 97-61-5331Zuffglx [Mass/Vol]76 mg/gJ72-680OlopdptjmOhiohealth Arthur G.H. Bing, Md, Cancer CenterComment on above:ADA recommended reference rangeRandom Glucose Reference Range is dependent on time and content of last meal. Glucose of more than 200 mg/dL in a nonstressed, ambulatory subject supports the diagnosisof Diabetes Mellitus.Serum or plasma potassium measurement (moles/volume)Ordered By: Modesta Chand on 21-40-0603Uktlnkrlf [Moles/Vol]3.7 mmol/L3.5-5.1 [facility] Hospitalerum or plasma sodium measurement (moles/volume)Ordered By: Modesta Chand on 19-10-5116Wxufry [Moles/Vol]131 mmol/T652-766NyqugfyahGenesis Hospitalerum or plasma total bilirubin measurement (mass/volume)Ordered By: Modesta Chand on 27-44-4852Eadshleuq [Mass/Vol]1.6 mg/dL0.3-1.2FDayton Osteopathic HospitalComment on above: Samples from patients who have taken Naproxen have shown spurious elevation in Total Bilirubin levels. A metabolite of Naproxen, O-desmethylnaproxen, has been shown to interfere with the Solomon method for measuring Total Bilirubin.Serum or plasma total carbon dioxide measurement (moles/volume)Ordered By: Modesta Chand on 54-64-8793FS2 [Moles/Vol]23.2 mmol/L22.0-30.0 [facility] Hospitalerum or plasma urea nitrogen measurement (mass/volume)Ordered By: Modesta Chand on 02-90-0410Qsvv nitrogen [Mass/Vol]15 mg/dL9-23[facility] CenterBasophils Auto (Bld) [#/Vol]Ordered By: Gregorio Carey on 57-75-9937Zbntbcvas (Bld) [#/Vol]0.0 10*3/uL0.0-0.1FDayton Osteopathic HospitalBasophils/100 WBC Auto (Bld) Ordered By: Gregorio Carey on 25-21-4274Hlffswsft/100 WBC (Bld)0.3 %. [facility] CenterBlood hemoglobin measurement (mass/volume) Ordered By: Gregorio Carey on 47-74-9382Tqotqtkxjz (Bld) [Mass/Vol]13.1 g/dL12.0-16.0[facility] CenterBlood leukocytes automated count (number/volume)Ordered By: Gregorio Carey on 49-90-4209XBU (Bld) [#/Vol] 9.7 10*3/uL4.5-13.5FDayton Osteopathic HospitalCreatinine and Glomerular filtration rate.predicted panel (S/P/Bld)Ordered By: Gregorio Carey on 41-58-6773Zpwpwzhwup [Mass/Vol]0.75 mg/dL0.44-1.03[facility] CenterEosinophils Auto (Bld) [#/Vol]Ordered By: Gregorio Carey on 98-83-8568Cgxwujqwlot (Bld) [#/Vol]0.1 10*3/uL0.0-0.7FDayton Osteopathic HospitalEosinophils/100 WBC Auto (Bld)Ordered By: Gregorio Carey on 20-70-1060Qznbewkohly/100 WBC (Bld)1.0 %.[facility] Erythrocyte distribution width Auto (RBC) [Ratio]Ordered By: Gregorio Carey on 30-41-3230Rwztupjrjrd distribution width (RBC) [Ratio]14.1 % 11.9-15.3FDayton Osteopathic HospitalEstimated glomerular filtration rate (GFR) non- AmericanOrdered By: Gregorio Carey on 84-82-1644JHI/1.73 sq M.predicted among non-blacks MDRD (S/P/Bld) [Vol rate/Area]> 60 mL/Min [facility] CenterHematocrit Auto (Bld) [Volume fraction]Ordered By: Gregorio Carey on 56-04-2060Hxkgrdisjl (Bld) [Volume fraction]39.6 % 36.0-46.0[facility] CenterLaboratory - Hematology and Cell countsOrdered By: Gregorio Carey on 81-32-1521Rmwnbevqy RBC/100 WBC (Bld) [Ratio]0.0 %0-0.5FDayton Osteopathic HospitalLymphocytes Auto (Bld) [#/Vol] Ordered By: Gregorio Carey on 17-52-3867Kdcrduautmn (Bld) [#/Vol]2.0 10*3/uL1.20-4.8[facility], Cancer CenterLymphocytes/100 WBC Auto (Bld) Ordered By: Gregorio Carey on 44-77-6068Fukugnoirlf/100 WBC (Bld)20.5 %. [facility]H [facility] ([facility]BC) [Entitic mass]Ordered By: Gregorio Carey on 07-79-8844BSU (RBC) [Entitic mass]28.0 pg25.0-35.0 [facility] CenterMCHC Auto (RBC) [Mass/Vol]Ordered By: Gregorio Carey on 40-95-0946IYJR (RBC) [Mass/Vol]33.2 g/dL31.0-37.0 [facility] CenterMCV Auto (RBC) [Entitic vol]Ordered By: Gregorio Carey on 39-69-5000QPR (RBC) [Entitic vol]84.5 mM96-057ZtpmwekocOhiohealth Arthur G.H. Bing, Md, Cancer CenterMonocytes Auto (Bld) [#/Vol]Ordered By: Gregorio Carey on 87-48-8650Helnlggbo (Bld) [#/Vol]0.8 10*3/uL0.1-1.00[facility] CenterMonocytes/100 WBC Auto (Bld)Ordered By: Gregorio Carey on 16-17-3108Kbbwchycp/100 WBC (Bld)8.0 %.[facility] Cancer CenterNeutrophils Auto (Bld) [#/Vol]Ordered By: Gregorio Carey on 14-69-8079Rodjvreqjmz (Bld) [#/Vol]6.8 10*3/uL1.2-7.7FDayton Osteopathic HospitalNeutrophils/100 WBC Auto (Bld)Ordered By: Gregorio Carey on 68-07-5541Jkqwbdrajkc/100 WBC (Bld)70.2 %.[facility] CenterNo Panel InformationOrdered By: Gregorio Carey on 94-66-6573Vzqubcpql GFR ()> 60 mL/MinOhiohealth Arthur G.H. Bing, Md, Cancer CenterComment on above: GFR estimated reference range: According to KDOQI guidelines, <60 ml/min/1.73m2 is sufficient todiagnose a patient with chronic kidney disease.Pharmacy Creatinine Clearance (Kjjy504.26[facility]9.7 10*3/uL 4.5-13.5FDayton Osteopathic Hospital0.0 %0-0.5FDayton Osteopathic Hospital> 60 mL/MinOhiohealth Arthur G.H. Bing, Md, Cancer Center117.26[facility], Cancer CenterPlatelet mean volume Auto (Bld) [Entitic vol]Ordered By: Gregorio Carey on 80-89-9631Mcrvwkrb mean volume (Bld) [Entitic vol]8.6 fL 6.3-10.7FDayton Osteopathic HospitalPlatelets Auto (Bld) [#/Vol]Ordered By: Gregorio Carey on 12-57-8980Zbmdehazb (Bld) [#/Vol]246 10*3/rI149-550 [facility] CenterRBC Auto (Bld) [#/Vol]Ordered By: Gregorio Carey on 59-92-3180EIG (Bld) [#/Vol]4.69 10*6/uL4.10-5.10Gen[facility] Hospitalerum nuclear antibody titerOrdered By: Gregorio Carey on 03-10-1243Lkkvhrg Ab (S) [Titer]Negative.[facility] Comment on above:Negative <1:80 Borderline 1:80 Positive >1:80ICAP nomenclature: AC-0For more information about Hep-2 cell patterns useANApatterns.org, the official website for theInternational Consensus on Antinuclear Antibody (EDMOND)Patterns (ICAP).Performed at: - LabRobert [place]ille [id number] Director: James Nelson PhD, Phone: [phone] or plasma anion gap determinationOrdered By: Gregorio Carey on 82-12-9749Xxvsk gap [Moles/Vol]17.0 mmol/L6.0-15.0[facility] Hospitalerum or plasma beta choriogonadotropin measurement (units/volume)Ordered By: Gregorio Carey on 88-57-9054EFO.beta subunit Qnm[IU]/mLOhiohealth Arthur G.H. Bing, Md, Cancer CenterComment on above:Approximate Approximate hCG Gestational Age Range (mIU/ml) (weeks) 0.2-1 5-50 1-2 50-500 2-3 100-5,000 3-4 500-10,000 4-5 1,000-50,000 5-6 10,000-100,000 6-8 15,000-200,000 8-12 10,000-100,000 Approximate Approximate hCG Gestational Age Range (mIU/ml) (weeks)0.2-1 5-50 1-2 50-500 2-3 100-5,000 3-4 500-10,000 4-5 1,000-50,000 5-6 10,000-100,000 6-8 15,000-200,000 8-12 10,000-100,000Serum or plasma calcium measurement (mass/volume)Ordered By: Gregorio Carey on 94-61-3504Atggpol [Mass/Vol]9.4 mg/dL8.2-10.2FCleveland Clinic Mercy Hospitalerum or plasma chloride measurement (moles/volume)Ordered By: Gregorio Carey on 05-59-8776Qncgnbeg [Moles/Vol]99 mmol/O62-015TqgzwodufGenesis Hospitalerum or plasma creatinine measurement with calculation of estimated glomerular filtrOrdered By: Gregorio Carey on 79-43-2621Uelnahllvi and Glomerular filtration rate.predicted panel (S/P/Bld)0.75 mg/dL0.44-1.03[facility] Hospitalerum or plasma glucose measurement (mass/volume)Ordered By: Gregorio Carey on 91-50-6099Useoctl [Mass/Vol]90 mg/lP55-729TpqihvzfjOhiohealth Arthur G.H. Bing, Md, Cancer CenterComment on above:ADA recommended reference range Random Glucose Reference Range is dependent on time and content of last meal. Glucose of more than 200 mg/dL in a nonstressed, ambulatory subject supports the diagnosis of Diabetes Mellitus.ADA recommended reference rangeRandom Glucose Reference Range is dependent on time and content of last meal. Glucose of more than 200 mg/dL in a nonstressed, ambulatory subject supports the diagnosisof Diabetes Mellitus.Serum or plasma potassium measurement (moles/volume)Ordered By: Gregorio Carey on 98-63-2310Okrobcnss [Moles/Vol]3.8 mmol/L3.5-5.1 [facility] Hospitalerum or plasma sodium measurement (moles/volume)Ordered By: Gregorio Carey on 69-69-5033Oilfkr [Moles/Vol] 134 mmol/C563-943CxwlxsledGenesis Hospitalerum or plasma total carbon dioxide measurement (moles/volume)Ordered By: Gregorio Carey on 08-22-2022 CO2 [Moles/Vol]21.8 mmol/L22.0-30.0Gen[facility] Hospitalerum or plasma urea nitrogen measurement (mass/volume)Ordered By: Gregorio Carey on 92-69-1174Gieq nitrogen [Mass/Vol]7 mg/dL9-[facility], Cancer CenterUrine culture routineOrdered By: Gregorio Carey on 08-22-2022 Bacteria identified Cx Nom (U)2 [facility] HospitalUrine culture routineOrdered By: Gilson Castro on 08-18-0440Eshafosv identified Cx Nom (U)2 [facility] HospitalUrine culture routineOrdered By: Colten Fry on 25-96-8740Gwlrdhis identified Cx Nom (U)2 [facility] HospitalAmphetamine Screen Ql (U)Ordered By: Gilson Castro on 62-47-4851Qflcmemutxgj Ql (U)NegativeNegativeOhiohealth Arthur G.[facility]. [facility], [facility], Cancer Center Automated erythrocytes count in urine sediment (number/area)Ordered By: Gilson Castro on 69-25-5555IIE Auto (Urine sed) [#/Area]None seen [HPF]0-4FDayton Osteopathic HospitalAutomated leukocytes count in urine sediment (number/area)Ordered By: Gilson Castro on 92-79-9789GLQ Auto (Urine sed) [#/Area]1-2 [HPF]0-4FDayton Osteopathic HospitalBarbiturates [Presence] in UrineOrdered By: Gilson Castro on 77-86-7005Limtztkfmymw Ql (U)PositiveNegative [facility] CenterBasophils Auto (Bld) [#/Vol]Ordered By: Gilson Castro on 51-28-2094Jpnkgoyye (Bld) [#/Vol]0.0 10*3/uL0.0-0.1FDayton Osteopathic HospitalBasophils/100 WBC Auto (Bld)Ordered By: Gilson Castro on 57-44-8628Hnltjokwh/100 WBC (Bld)0.4 %.[facility] Benzodiazepines [Presence] in UrineOrdered By: Gilson Castro on 08-20-2022 Benzodiazepines Ql (U)NegativeNegSelect Medical Specialty Hospital - Southeast OhioBilirubin Test strip Ql (U)Ordered By: Gilson Castro on 71-16-5565Afutjlfut Ql (U) NegativeNegSelect Medical Specialty Hospital - Southeast OhioBlood anisocytosis detection Ordered By: Gilson Castro on 48-27-1664Mgewkigwdwlk Ql (Bld)SlightOhiohealth Arthur G.H. Bing, Md, Cancer CenterBlood hemoglobin measurement (mass/volume)Ordered By: Gilson Castro on 65-66-1086Ghznwexhvf (Bld) [Mass/Vol]12.1 g/dL12.0-16.0 [facility] CenterBlood leukocytes automated count (number/volume)Ordered By: Gilson Castro on 76-80-0924BKX (Bld) [#/Vol]10.9 10*3/uL4.5-13.5FDayton Osteopathic HospitalCOVID-19 Positive/Negative Ordered By: Ravi Arguello on 29-48-2038JUYI-CoV-2 (COVID-19) N gene JANAK+probe Ql (Resp)NegativeNegSelect Medical Specialty Hospital - Southeast OhioComment on above:Testing for SARS-CoV-2 by RT-PCR This test was developed and its performance characteristics determined by [employer] ([employer]) and validated at the [facility]. This test has not been FDA [...] of time the declaration that circumstances exist ju stifying the authorization of the emergency use of in vitro diagnostic tests for detection of SARS-CoV-2 virus and/or diagnosis of COVID-19 infection under section 564(b)(1) of the Act, 21 U.S.C. 360bbb-3(b)(1), unless the authorization is terminated or revoked sooner.Testing for SARS-CoV-2 by RT-PCRThis test was developed and its performance characteristics determined by [employer] ([employer]) and validated at the [facility]. This test has not been FDA [...] unless the authorization is terminated or revoked sooner.COVID-19 SOFIAOrdered By: Ravi Arguello on 08-20-2022 SARS-CoV+SARS-CoV-2 (COVID-19) Ag IA.rapid Ql (Resp)NegativeNegSelect Medical Specialty Hospital - Southeast OhioComment on above:This is a duplicate Aida SARS Antigen (JOSE A) result to be used for statistical tracking purpose only.Cannabinoids [Presence] in Urine by Screen methodOrdered By: Gilson Castro on 08-20-2022 Cannabinoids Screen Ql (U)PositiveNegSelect Medical Specialty Hospital - Southeast [place] Comment on above:These are unconfirmed results and should not be used for legal purposes. Drug Cut-Off Concentration: AMPH 1000 ng/mL NIKOLAS 200 ng/mL SHRAVAN 200 ng/mL COCM 300 ng/mL OP 300 ng/mL PCP 25 ng/mL THC 20 ng/mLThese are unconfirmed results and should not be used for legal purposes. Drug Cut-Off Concentration: AMPH 1000 ng/mL NIKOLAS 200 ng/mL SHRAVAN 200 ng/mL COCM 300 ng/mL OP 300 ng/mL PCP 25 ng/mL THC 20 ng/mLColor Auto (U)Ordered By: Gilson Castro on 97-99-5858Curmp (U)YellowYellowOhiohealth Arthur G.H. Bing, Md, Cancer CenterCreatinine and Glomerular filtration rate.predicted panel (S/P/Bld)Ordered By: Gilson Castro on 79-69-6373Fwyrhszpva [Mass/Vol]0.65 mg/dL0.44-1.03 [facility] CenterEosinophils Auto (Bld) [#/Vol]Ordered By: Gilson Castro on 75-52-9889Wtqwzzxxcju (Bld) [#/Vol]0.0 10*3/uL0.0-0.7FDayton Osteopathic HospitalEosinophils/100 WBC Auto (Bld)Ordered By: Gilson Castro on 45-28-7473Jemylyauevg/100 WBC (Bld)0.3 %.[facility] Erythrocyte distribution width Auto (RBC) [Ratio]Ordered By: Gilson Castro on 63-85-7605Xtshwqcyvwa distribution width (RBC) [Ratio]13.9 %11.9-15.3FDayton Osteopathic HospitalEstimated glomerular filtration rate (GFR) non- AmericanOrdered By: Gilson Castro on 94-27-4304WIO/1.73 sq M.predicted among non-blacks MDRD (S/P/Bld) [Vol rate/Area]> 60 mL/MinOhiohealth Arthur G.H. Bing, Md, Cancer CenterHematocrit Auto (Bld) [Volume fraction]Ordered By: Gilson Castro on 31-95-0694Yblsqdcjcb (Bld) [Volume fraction]36.8 %36.0-46.0[facility] Cancer CenterKetones Auto test strip (U) [Mass/Vol]Ordered By: Gilson Castro on 16-58-3005Bpqvnqe (U) [Mass/Vol]2+NegativeOhiohealth Arthur G.H. Bing, Md, Cancer Center Laboratory - Chemistry and Chemistry - challengeOrdered By: Gilson Castro on 65-28-4726Yolyzfpsk [Mass/Vol]1.9 mg/dL1.6-2.6FDayton Osteopathic Hospital Laboratory - Drug toxicologyOrdered By: Gilson Castro on 91-67-2281Pichzov Ql (U)NegativeNegativeOhiohealth Arthur G.H. Bing, Md, Cancer CenterLaboratory - Hematology and Cell countsOrdered By: Gilson Castro on 47-93-5859Jtrpwwnyr RBC/100 WBC (Bld) [Ratio]0.0 %0-0.5FDayton Osteopathic HospitalLaboratory - UrinalysisOrdered By: Gilson Castro on 06-17-1702Iephcog casts LM Ql (Urine sed)None seen [LPF] 0-8[facility], Cancer CenterLymphocytes Auto (Bld) [#/Vol]Ordered By: Gilson Castro on 67-36-2210Eoasdgxpypa (Bld) [#/Vol]1.3 10*3/uL1.20-4.8[facility] Cancer CenterLymphocytes/100 WBC Auto (Bld)Ordered By: Gilson Castro on 63-96-3506Rweypnknlss/100 WBC (Bld)11.5 %.[facility] MCH Auto (RBC) [Entitic mass]Ordered By: Gilson Castro on 75-54-5755ANC (RBC) [Entitic mass]28.1 pg25.0-35.0[facility] Cancer CenterMCHC Auto (RBC) [Mass/Vol]Ordered By: Gilson Castro on 21-81-1514LEYT (RBC) [Mass/Vol]32.9 g/dL 31.0-37.0[facility] CenterMCV Auto (RBC) [Entitic vol]Ordered By: Gilson Castro on 78-88-3639JQV (RBC) [Entitic vol]85.5 sD76-785WulphxbnqOhiohealth Arthur G.H. Bing, Md, Cancer CenterMonocytes Auto (Bld) [#/Vol]Ordered By: Gilson Castro on 55-28-8854Vqyaxkixu (Bld) [#/Vol]0.4 10*3/uL0.1-1.00[facility] CenterMonocytes/100 WBC Auto (Bld)Ordered By: Gilson Castro on 08-20-2022 Monocytes/100 WBC (Bld)3.7 %.[facility] CenterNeutrophils Auto (Bld) [#/Vol]Ordered By: Gilson Castro on 96-77-9957Pqotwqmhnfi (Bld) [#/Vol]9.2 10*3/uL1.2-7.7FDayton Osteopathic HospitalNeutrophils/100 WBC Auto (Bld) Ordered By: Gilson Castro on 35-02-4285Nacxushnjwf/100 WBC (Bld)84.1 %.[facility] Cancer CenterNitrite Test strip Ql (U)Ordered By: Gilson Castro on 24-29-8578Xrjzkvi Ql (U)NegativeNegativeOhiohealth Arthur G.H. Bing, Md, Cancer CenterNo Panel InformationOrdered By: Gilson Castro on 66-98-8309Krec seen [LPF]0-8 [facility] CenterNegativeNegSelect Medical Specialty Hospital - Southeast OhioEstimated GFR ()> 60 mL/MinOhiohealth Arthur G.H. Bing, Md, Cancer CenterComment on above:GFR estimated reference range: According to KDOQI guidelines, <60 ml/min/1.73m2 is sufficient todiagnose a patient with chronic kidney disease.Pharmacy Creatinine Clearance (Wxys417.96[facility] Cancer CenterPlatelet EstimateNormalNormFostoria City Hospital Platelet Morphology CommentNormalNormFostoria City HospitalNormal NormalOhiohealth Arthur G.[facility]. [facility], [facility], Cancer Center1.9 mg/dL1.6-2.6FDayton Osteopathic HospitalNo Panel InformationOrdered By: Ravi Arguello on 06-90-2649ZQXX Antigen (LFIA)[facility] CenterPhencyclidine Screen Ql (U) Ordered By: Gilson Castro on 92-78-2368Xsgalemdxemej Ql (U)NegativeNegative [facility] CenterPlatelet mean volume Auto (Bld) [Entitic vol] Ordered By: Gilson Castro on 52-21-4427Rkdjnhvu mean volume (Bld) [Entitic vol] 8.6 fL6.3-10.7FDayton Osteopathic HospitalPlatelets Auto (Bld) [#/Vol] Ordered By: Gilson Castro on 91-04-8925Txnsovobz (Bld) [#/Vol]145 10*3/eR209-866 [facility] CenterComment on above:Delta: 314 on 08/19/22 Protein Auto test strip (U) [Mass/Vol]Ordered By: Gilson Castro on 08-20-2022 Protein (U) [Mass/Vol]NegativeNegativeOhiohealth Arthur G.H. Bing, Md, Cancer CenterRB Auto (Bld) [#/Vol]Ordered By: Gilson Castro on 23-74-8311SCO (Bld) [#/Vol]4.31 10*6/uL4.10-5.10[facility] morphologyOrdered By: Gilson Castro on 36-62-1015YJQ morphology finding Nom (Bld)N/AFCleveland Clinic Mercy Hospitalerum or plasma anion gap determinationOrdered By: Gilson Castro on 09-35-6941Qwrcm gap [Moles/Vol]15.2 mmol/L6.0-15.0Genesis Hospitalerum or plasma calcium measurement (mass/volume)Ordered By: Gilson Castro on 17-04-0124Rccmjps [Mass/Vol]8.6 mg/dL8.2-10.2FCleveland Clinic Mercy Hospitalerum or plasma chloride measurement (moles/volume)Ordered By: Gilson Castro on 41-59-0108Gzoywchd [Moles/Vol]101 mmol/Q97-587WmwnzdsduGenesis Hospitalerum or plasma glucose measurement (mass/volume)Ordered By: Gilson Castro on 54-81-3077Nieuqkm [Mass/Vol]96 mg/qG36-894IspeapurkOhiohealth Arthur G.H. Bing, Md, Cancer CenterComment on above:ADA recommended reference range Random Glucose Reference Range is dependent on time and content of last meal. Glucose of more than 200 mg/dL in a nonstressed, ambulatory subject supports the diagnosis of Diabetes Mellitus.Serum or plasma potassium measurement (moles/volume)Ordered By: Gilson Castro on 00-58-5957Cslixcitn [Moles/Vol]3.1 mmol/L3.5-5.1FCleveland Clinic Mercy Hospitalerum or plasma sodium measurement (moles/volume)Ordered By: Gilson Castro on 76-07-4352Xwrrov [Moles/Vol]135 mmol/I094-071VwufgnrjgGenesis Hospitalerum or plasma total carbon dioxide measurement (moles/volume)Ordered By: Gilson Castro on 49-32-4888TQ1 [Moles/Vol]21.9 mmol/L22.0-30.0Genesis Hospitalerum or plasma urea nitrogen measurement (mass/volume)Ordered By: Gilson Castro on 08-20-2022 Urea nitrogen [Mass/Vol]11 mg/dL08-20Genesis Hospitalpecific gravity Auto test strip (U) [Rel density]Ordered By: Gilson Castro on 08-20-2022 Specific gravity (U) [Rel density]1.0081.001-1.030Genesis Hospitalquamous epithelial cells detection in urine sediment by light microscopy Ordered By: Gilson Castro on 94-15-0924Weeundeqcp cells.squamous LM Ql (Urine sed)1-2 [HPF]0-2FDayton Osteopathic HospitalUrine bacteria detection by automated methodOrdered By: Gilson Castro on 45-61-7329Wienuwkz Auto Ql (U)None seenNone SeenOhiohealth Arthur G.H. Bing, Md, Cancer CenterUrine clarity by refractometry automatedOrdered By: Gilson Castro on 47-35-8658Deccytv Refractometry automated (U)ClearCleHolmes County Joel Pomerene Memorial HospitalUrine cocaine detectionOrdered By: Gilson Castro on 90-84-0535Cuakaqf Ql (U)NegativeNegSelect Medical Specialty Hospital - Southeast OhioUrine glucose measurement by automated test strip (mass/volume) Ordered By: Gilson Castro on 62-51-7526Mdaujqg Auto test strip (U) [Mass/Vol] Normal mg/dLNoThe Christ HospitalUrine hemoglobin detection by automated test stripOrdered By: Gilson Castro on 39-42-6640Hvoseieoud Auto test strip Ql (U)NegativeNegSelect Medical Specialty Hospital - Southeast OhioUrine leukocyte esterase detection by automated test stripOrdered By: Gilson Castro on 64-97-9375Wxinzvnha esterase Auto test strip Ql (U)1+NegativeOhiohealth Arthur G.H. Bing, Md, Cancer CenterUrobilinogen Auto test strip (U) [Mass/Vol]Ordered By: Gilson Castro on 90-48-1128Xwvfyfmifodq (U) [Mass/Vol]Normal mg/dLNormFostoria City HospitalpH Auto test strip (U)Ordered By: Gilson Castro on 60-57-3676iZ (U)7.0 [pH]5.0-9.0[facility], [facility] CenterAutomated erythrocytes count in urine sediment (number/area)Ordered By: Gilson Castro on 05-08-7642RQV Auto (Urine sed) [#/Area]3-4 [HPF]0-4FDayton Osteopathic HospitalAutomated erythrocytes count in urine sediment (number/area)Ordered By: Colten Fry on 87-36-6492BSC Auto (Urine sed) [#/Area]None seen [HPF]0-4 [facility] CenterAutomated leukocytes count in urine sediment (number/area)Ordered By: Gilson Castro on 79-37-5484ZIL Auto (Urine sed) [#/Area]20-49 [HPF]0-4FDayton Osteopathic HospitalAutomated leukocytes count in urine sediment (number/area)Ordered By: Colten Fry on 33-88-8628LBT Auto (Urine sed) [#/Area]5-9 [HPF]0-4FDayton Osteopathic HospitalAutomated urine hyaline casts count (number/volume)Ordered By: Gilson Castro on 08-19-2022 Hyaline casts Auto (U) [#/Vol]None seen [LPF]0-1FDayton Osteopathic HospitalBasophils Auto (Bld) [#/Vol]Ordered By: Gilson Castro on 08-19-2022 Basophils (Bld) [#/Vol]0.0 10*3/uL0.0-0.1FDayton Osteopathic Hospital Basophils Auto (Bld) [#/Vol]Ordered By: Colten Fry on 01-97-7272Pdrkgjebk (Bld) [#/Vol]0.0 10*3/uL0.0-0.1FDayton Osteopathic HospitalBasophils/100 WBC Auto (Bld)Ordered By: Gilson Castro on 41-47-2144Jssvkcysp/100 WBC (Bld)0.2 %.[facility] CenterBasophils/100 WBC Auto (Bld)Ordered By: Colten Fry on 32-16-7001Rtsmdvxdl/100 WBC (Bld)0.4 %.[facility] Cancer CenterBilirubin Test strip Ql (U)Ordered By: Gilson Castro on 08-19-2022 Bilirubin Ql (U)NegativeNegativeOhiohealth Arthur G.H. Bing, Md, Cancer CenterBilirubin Test strip Ql (U)Ordered By: Colten Fry on 00-02-8656Hzozguioa Ql (U)Negative NegativeOhiohealth Arthur G.H. Bing, Md, Cancer CenterBlood hemoglobin measurement (mass/volume)Ordered By: Gilson Castro on 72-16-6474Jssjtkacsk (Bld) [Mass/Vol] 13.2 g/dL12.0-16.0[facility] CenterBlood hemoglobin measurement (mass/volume)Ordered By: Colten Fry on 24-35-6463Zmvazaxmum (Bld) [Mass/Vol] 12.8 g/dL12.0-16.0[facility] CenterBlood leukocytes automated count (number/volume)Ordered By: Gilson Castro on 25-58-3379TSG (Bld) [#/Vol] 15.5 10*3/uL4.5-13.5FDayton Osteopathic HospitalBlood leukocytes automated count (number/volume)Ordered By: Colten Fry on 75-36-4741AQR (Bld) [#/Vol] 13.5 10*3/uL4.5-13.5FDayton Osteopathic HospitalBody fluid albumin measurement (mass/volume)Ordered By: Gilson Castro on 45-38-2380Rqyysvd (Body fld) [Mass/Vol]4.0 g/dL3.2-5.5FDayton Osteopathic HospitalBody fluid albumin measurement (mass/volume)Ordered By: Colten Fry on 50-29-4899Gqxyprn (Body fld) [Mass/Vol]4.5 g/dL3.2-5.5FDayton Osteopathic HospitalCOVID-19 SOFIAOrdered By: Gilson Castro on 05-69-9961LISH-CoV+SARS-CoV-2 (COVID-19) Ag IA.rapid Ql (Resp)NegativeNegativeOhiohealth Arthur G.H. Bing, Md, Cancer CenterComment on above:This is a duplicate Adia SARS Antigen (JOSE A) result to be used for statistical tracking purpose only.Casts typing in urine sediment by light microscopyOrdered By: Gilson Castro on 79-12-4468Owxgn LM Nom (Urine sed)None seen [LPF]None SeenOhiohealth Arthur G.H. Bing, Md, Cancer CenterCasts typing in urine sediment by light microscopyOrdered By: Colten Fry on 55-26-7722Yklaz LM Nom (Urine sed)N/AFDayton Osteopathic HospitalColor Auto (U)Ordered By: Gilson Castro on 64-00-5083Xknuu (U)YellowYellowOhiohealth Arthur G.H. Bing, [facility], Cancer Center Color Auto (U)Ordered By: Colten Fry on 86-46-2887Gmgkp (U)YellowYellow [facility] CenterCreatinine and Glomerular filtration rate.predicted panel (S/P/Bld)Ordered By: Gilson Castro on 09-26-8191Wibwpmaeoh [Mass/Vol]0.73 mg/dL0.44-1.03[facility] CenterCreatinine and Glomerular filtration rate.predicted panel (S/P/Bld)Ordered By: Colten Fry on 63-59-0820Cxmugrsukg [Mass/Vol]0.82 mg/dL0.44-1.03[facility] CenterEosinophils Auto (Bld) [#/Vol]Ordered By: Gilson Castro on 08-19-2022 Eosinophils (Bld) [#/Vol]0.0 10*3/uL0.0-0.7FDayton Osteopathic Hospital Eosinophils Auto (Bld) [#/Vol]Ordered By: Colten Fry on 11-50-7231Jjitlljgqej (Bld) [#/Vol]0.0 10*3/uL0.0-0.7FDayton Osteopathic HospitalEosinophils/100 WBC Auto (Bld)Ordered By: Gilson Castro on 28-21-7350Vmruxdshxsq/100 WBC (Bld) 0.2 %.[facility] CenterEosinophils/100 WBC Auto (Bld)Ordered By: Colten Fry on 77-61-9203Fvygowvrvhs/100 WBC (Bld)0.0 %.[facility] Cancer CenterErythrocyte distribution width Auto (RBC) [Ratio]Ordered By: Gilson Castro on 77-28-1983Zkmrgipiboo distribution width (RBC) [Ratio]14.4 % 11.9-15.3FDayton Osteopathic HospitalErythrocyte distribution width Auto (RBC) [Ratio]Ordered By: Colten Fry on 14-77-4040Dsuezgbzrfj distribution width (RBC) [Ratio]14.3 %11.9-15.3FDayton Osteopathic HospitalEstimated glomerular filtration rate (GFR) non- AmericanOrdered By: Gilson Castro on 84-44-7612XXF/1.73 sq M.predicted among non-blacks MDRD (S/P/Bld) [Vol rate/Area]> 60 mL/MinFirelands Regional Medical CenterEstimated glomerular filtration rate (GFR) non- AmericanOrdered By: Colten Fry on 46-29-4703ZWO/1.73 sq M.predicted among non-blacks MDRD (S/P/Bld) [Vol rate/Area]> 60 mL/MinOhiohealth Arthur G.H. Bing, Md, Cancer CenterGlobulin Calc (S) [Mass/Vol]Ordered By: Gilson Castro on 93-10-7933Ttvebegw (S) [Mass/Vol]2.7 g/dL [facility] CenterGlobulin Calc (S) [Mass/Vol]Ordered By: Colten Fry on 42-27-9178Wnferumk (S) [Mass/Vol]3.0 g/dLOhiohealth Arthur G.H. Bing, Md, Cancer CenterHCG ( test) IA.rapid Ql (U)Ordered By: Gilson Castro on 97-00-4042QPQ ( test) Ql (U)NegativeOhiohealth Arthur G.H. Bing, [facility], [facility] Center HCG ( test) IA.rapid Ql (U)Ordered By: Colten Fry on 52-09-6182WHI ( test) Ql (U)NegativeOhiohealth Arthur G.H. Bing, Md, Cancer CenterHematocrit Auto (Bld) [Volume fraction]Ordered By: Gilson Castro on 09-79-3457Ucgspfzmql (Bld) [Volume fraction]40.6 %36.0-46.0[facility] Cancer CenterHematocrit Auto (Bld) [Volume fraction]Ordered By: Colten Fry on 41-25-0567Vljmlilfzw (Bld) [Volume fraction]39.5 %36.0-46.0[facility] CenterKetones Auto test strip (U) [Mass/Vol]Ordered By: Gilson Castro on 08-98-0268Liuuuvq (U) [Mass/Vol]4+NegativeOhiohealth Arthur G.H. Bing, Md, Cancer CenterKetones Auto test strip (U) [Mass/Vol]Ordered By: Colten Fry on 57-07-0510Crhjljq (U) [Mass/Vol]3+ NegativeOhiohealth Arthur G.H. Bing, Md, Cancer CenterLaboratory - Chemistry and Chemistry - challengeOrdered By: Gilson Castro on 12-86-6943Vgfqzi [Catalytic activity/Vol] 24.0 U/B09-67JmlvhudycOhiohealth Arthur G.H. Bing, Md, Cancer CenterMagnesium [Mass/Vol]2.0 mg/dL 1.6-2.6FDayton Osteopathic HospitalLaboratory - Hematology and Cell counts Ordered By: Gilson Castro on 13-33-7817Ppgpnsfas RBC/100 WBC (Bld) [Ratio]0.1 % 0-0.5FMadison Healthtory - Hematology and Cell counts Ordered By: Colten Fry on 85-60-2175Ogkrixjmy RBC/100 WBC (Bld) [Ratio]0.0 % 0-0.5FMadison Healthtory - UrinalysisOrdered By: Colten Fry on 29-24-0170Gmcdqbz casts LM Ql (Urine sed)None seen [LPF]0-8[facility] Cancer CenterLymphocytes Auto (Bld) [#/Vol]Ordered By: Gilson Castro on 56-62-7096Ydaqilnivmu (Bld) [#/Vol]2.3 10*3/uL1.20-4.8[facility] CenterLymphocytes Auto (Bld) [#/Vol]Ordered By: Colten Fry on 51-12-4742Jivxvdslcsz (Bld) [#/Vol]1.0 10*3/uL1.20-4.8[facility] CenterLymphocytes/100 WBC Auto (Bld)Ordered By: Gilson Castro on 08-19-2022 Lymphocytes/100 WBC (Bld)14.6 %.[facility] CenterLymphocytes/100 WBC Auto (Bld)Ordered By: Colten Fry on 71-30-9267Uhagomarblk/100 WBC (Bld) 7.3 %.[facility] Auto (RBC) [Entitic mass]Ordered By: Gilson Castro on 55-44-4861LVM (RBC) [Entitic mass]27.9 pg25.0-35.0[facility] Auto (RBC) [Entitic mass]Ordered By: Colten Fry on 53-01-0465OJM (RBC) [Entitic mass]27.7 pg25.0-35.0[facility] Auto (RBC) [Mass/Vol]Ordered By: Gilson Castro on 37-51-0814QEKP (RBC) [Mass/Vol]32.6 g/dL31.0-37.0[facility] HospitalHC Auto (RBC) [Mass/Vol]Ordered By: Colten Fry on 51-46-0831CTJY (RBC) [Mass/Vol]32.3 g/dL31.0-37.0[facility] CenterMCV Auto (RBC) [Entitic vol] Ordered By: Gilson Castro on 65-81-7687TQI (RBC) [Entitic vol]85.6 eA58-801 [facility] CenterMCV Auto (RBC) [Entitic vol]Ordered By: Colten Fry on 11-81-3129JRF (RBC) [Entitic vol]85.7 hC36-556EpgyulcmqOhiohealth Arthur G.H. Bing, Md, Cancer CenterMonocytes Auto (Bld) [#/Vol]Ordered By: Gilson Castro on 57-17-5793Luflwwncj (Bld) [#/Vol]1.1 10*3/uL0.1-1.00[facility] CenterMonocytes Auto (Bld) [#/Vol]Ordered By: Colten Fry on 08-19-2022 Monocytes (Bld) [#/Vol]0.3 10*3/uL0.1-1.00[facility] Monocytes/100 WBC Auto (Bld)Ordered By: Gilson Castro on 98-73-9700Nwivxrkuc/100 WBC (Bld)7.3 %.[facility] CenterMonocytes/100 WBC Auto (Bld) Ordered By: Colten Fry on 42-39-6513Fuejzldqy/100 WBC (Bld)2.1 %.[facility] Cancer CenterNeutrophils Auto (Bld) [#/Vol]Ordered By: Gilson Castro on 47-28-8899Vwpwawfjjhy (Bld) [#/Vol]12.1 10*3/uL1.2-7.7FDayton Osteopathic HospitalNeutrophils Auto (Bld) [#/Vol]Ordered By: Colten Fry on 62-88-5266Dszpoykkjge (Bld) [#/Vol]12.2 10*3/uL1.2-7.7FDayton Osteopathic HospitalNeutrophils/100 WBC Auto (Bld)Ordered By: Gilson Castro on 08-19-2022 Neutrophils/100 WBC (Bld)77.7 %.[facility] CenterNeutrophils/100 WBC Auto (Bld)Ordered By: Colten Fry on 93-85-3234Hmxlmljcwpa/100 WBC (Bld) 90.2 %.[facility] Cancer CenterNitrite Test strip Ql (U)Ordered By: Gilson Castro on 88-12-6091Jyiymdh Ql (U)NegativeNegativeOhiohealth Arthur G.H. Bing, Md, Cancer CenterNitrite Test strip Ql (U)Ordered By: Colten Fry on 08-19-2022 Nitrite Ql (U)NegativeNegSelect Medical Specialty Hospital - Southeast OhioNo Panel InformationOrdered By: Gilson Castro on 79-24-5059Daigliqns GFR ()> 60 mL/MinOhiohealth Arthur G.H. Bing, Md, Cancer CenterComment on above:GFR estimated reference range: According to KDOQI guidelines, <60 ml/min/1.73m2 is sufficient todiagnose a patient with chronic kidney disease.Pharmacy Creatinine Clearance (Liil802.95[facility]> 60 mL/MinOhiohealth Arthur G.H. Bing, Md, Cancer Center2.0 mg/dL1.6-2.6FDayton Osteopathic Hospital24.0 U/L 22-51[facility]121.95[facility] 15.5 10*3/uL4.5-13.5FDayton Osteopathic Hospital0.1 %0-0.5FCleveland Clinic Mercy HospitalARS Antigen (LFIA)[facility] CenterNo Panel InformationOrdered By: Colten Fry on 78-68-3915Dhfi seen [LPF]0-8 [facility] CenterEstimated GFR ()> 60 mL/Min [facility] CenterComment on above:GFR estimated reference range: According to KDOQI guidelines, <60 ml/min/1.73m2 is sufficient todiagnose a patient with chronic kidney disease.Pharmacy Creatinine Clearance (Rovs369.97 [facility]13.5 10*3/uL4.5-13.5FDayton Osteopathic Hospital0.0 %0-0.5FDayton Osteopathic Hospital> 60 mL/MinOhiohealth Arthur G.H. Bing, Md, Cancer Center106.97[facility], Cancer CenterPlatelet mean volume Auto (Bld) [Entitic vol]Ordered By: Gilson Castro on 97-75-6561Fzochnhh mean volume (Bld) [Entitic vol]8.8 fL6.3-10.7FDayton Osteopathic HospitalPlatelet mean volume Auto (Bld) [Entitic vol]Ordered By: Colten Fry on 40-98-3690Peqeishv mean volume (Bld) [Entitic vol]8.7 fL6.3-10.7FDayton Osteopathic Hospital Platelets Auto (Bld) [#/Vol]Ordered By: Gilson Castro on 89-30-4890Atltahgdc (Bld) [#/Vol]314 10*3/eP641-258JkpcepkehOhiohealth Arthur G.H. Bing, Md, Cancer CenterPlatelets Auto (Bld) [#/Vol]Ordered By: Colten Fry on 10-76-8085Cefepyipl (Bld) [#/Vol]258 10*3/eZ275-200IfsowwqkfOhiohealth Arthur G.H. Bing, Md, Cancer CenterProtein Auto test strip (U) [Mass/Vol]Ordered By: Gilson Castro on 34-43-0597Efncgeg (U) [Mass/Vol]30 mg/dL NegativeOhiohealth Arthur G.H. Bing, Md, Cancer CenterProtein Auto test strip (U) [Mass/Vol] Ordered By: Colten Fry on 37-37-0460Jovclip (U) [Mass/Vol]Trace mg/dLNegative [facility], Cancer CenterProtein [Mass/volume] in Serum or PlasmaOrdered By: Gilson Castro on 05-63-2713Wquowen [Mass/Vol]6.7 g/dL6.1-7.9[facility] Md, Cancer CenterProtein [Mass/volume] in Serum or PlasmaOrdered By: Colten Fry on 58-97-3039Okwlydz [Mass/Vol]7.5 g/dL6.1-7.9[facility], Cancer CenterRBC Auto (Bld) [#/Vol]Ordered By: Gilson Castro on 45-90-9013ABD (Bld) [#/Vol]4.74 10*6/uL4.10-5.10[facility] CenterRB Auto (Bld) [#/Vol]Ordered By: Colten Fry on 21-63-2529UKJ (Bld) [#/Vol]4.60 10*6/uL4.10-5.10[facility] Hospitalerum or plasma alanine aminotransferase measurement without P-5'-P (enzymatic activiOrdered By: Gilson Castro on 71-25-1983GRF No additional P-5'-P [Catalytic activity/Vol]17 U/L 10-60[facility] Hospitalerum or plasma alanine aminotransferase measurement without P-5'-P (enzymatic activiOrdered By: Colten Fry on 00-53-2316HXF No additional P-5'-P [Catalytic activity/Vol]16 U/E95-77IbxxwwldoGenesis Hospitalerum or plasma albumin/globulin mass ratioOrdered By: Gilson Castro on 14-72-3678Zederex/Globulin [Mass ratio]1.5 {ratio}[facility] Hospitalerum or plasma albumin/globulin mass ratioOrdered By: Colten Fry on 38-17-0795Pwyrpap/Globulin [Mass ratio]1.5 {ratio}[facility] Hospitalerum or plasma alkaline phosphatase measurement (enzymatic activity/volume)Ordered By: Gilson Castro on 41-27-3098VQK [Catalytic activity/Vol]51 U/I35-26CijzpmnpdGenesis Hospitalerum or plasma alkaline phosphatase measurement (enzymatic activity/volume)Ordered By: Colten Fry on 33-19-4753ENT [Catalytic activity/Vol]59 U/B54-56SkgbyzfxeGenesis Hospitalerum or plasma anion gap determinationOrdered By: Gilson Castro on 01-56-1919Vtuwt gap [Moles/Vol]13.8 mmol/L6.0-15.0[facility] Hospitalerum or plasma anion gap determinationOrdered By: Colten Fry on 55-89-7030Xingh gap [Moles/Vol]19.5 mmol/L6.0-15.0[facility] Hospitalerum or plasma aspartate aminotransferase measurement (enzymatic activity/volume)Ordered By: Gilson Castro on 33-92-7007OYU [Catalytic activity/Vol]17 U/X79-53OnnegcuzvGenesis Hospitalerum or plasma aspartate aminotransferase measurement (enzymatic activity/volume)Ordered By: Colten Fry on 96-13-5257LYG [Catalytic activity/Vol]20 U/W64-05NvjvbgujgGenesis Hospitalerum or plasma calcium measurement (mass/volume)Ordered By: Gilson Castro on 96-37-8049Xyujxge [Mass/Vol]9.1 mg/dL8.2-10.2FC[facility] Mercy Hospitalerum or plasma calcium measurement (mass/volume)Ordered By: Colten Fry on 21-51-4479Mbjtfzr [Mass/Vol]9.8 mg/dL8.2-10.2FCleveland Clinic Mercy Hospitalerum or plasma chloride measurement (moles/volume) Ordered By: Gilson Castro on 42-23-7944Fadxttxq [Moles/Vol]104 mmol/L95-114 [facility] Hospitalerum or plasma chloride measurement (moles/volume)Ordered By: Colten Fry on 71-96-0462Zpuavnwg [Moles/Vol]107 mmol/U68-995PrbuuyotcGenesis Hospitalerum or plasma creatinine measurement with calculation of estimated glomerular filtrOrdered By: Gilson Castro on 11-46-4576Dacazkdjko and Glomerular filtration rate.predicted panel (S/P/Bld)0.73 mg/dL0.44-1.03[facility] Hospitalerum or plasma creatinine measurement with calculation of estimated glomerular filtrOrdered By: Colten Fry on 35-79-7988Plfibzofec and Glomerular filtration rate.predicted panel (S/P/Bld)0.82 mg/dL0.44-1.03[facility] Hospitalerum or plasma glucose measurement (mass/volume)Ordered By: Gilson Castro on 08-19-2022 Glucose [Mass/Vol]108 mg/xS18-317ZjejikrprOhiohealth Arthur G.H. Bing, Md, Cancer CenterComment on above:ADA recommended reference range Random Glucose Reference Range is dependent on time and content of last meal. Glucose of more than 200 mg/dL in a nonstressed, ambulatory subject supports the diagnosis of Diabetes Mellitus.ADA recommended reference rangeRandom Glucose Reference Range is dependent on time and content of last meal. Glucose of more than 200 mg/dL in a nonstressed, ambulatory subject supports the diagnosisof Diabetes Mellitus.Serum or plasma glucose measurement (mass/volume)Ordered By: Colten Fry on 12-12-1061Dzvwqro [Mass/Vol]131 mg/yF67-595NywzpcozdOhiohealth Arthur G.H. Bing, Md, Cancer CenterComment on above:ADA recommended reference range Random Glucose Reference Range is dependent on time and content of last meal. Glucose of more than 200 mg/dL in a nonstressed, ambulatory subject supports the diagnosis of Diabetes Mellitus.ADA recommended reference rangeRandom Glucose Reference Range is dependent on time and content of last meal. Glucose of more than 200 mg/dL in a nonstressed, ambulatory subject supports the diagnosisof Diabetes Mellitus.Serum or plasma potassium measurement (moles/volume)Ordered By: Gilson Castro on 97-40-3710Vfpgbgwqp [Moles/Vol]3.1 mmol/L3.5-5.1FCleveland Clinic Mercy Hospitalerum or plasma potassium measurement (moles/volume) Ordered By: Colten Fry on 90-70-2855Wfwzwuxck [Moles/Vol]3.9 mmol/L3.5-5.1 [facility] Hospitalerum or plasma sodium measurement (moles/volume)Ordered By: Gilson Castro on 56-88-8241Yynasj [Moles/Vol]138 mmol/E747-796InsmqyhjbGenesis Hospitalerum or plasma sodium measurement (moles/volume)Ordered By: Colten Fry on 86-17-9758Optpwm [Moles/Vol]142 mmol/V109-924HqldlhoztGenesis Hospitalerum or plasma total bilirubin measurement (mass/volume)Ordered By: Gilson Castro on 88-98-5206Pacrniktg [Mass/Vol]0.5 mg/dL0.3-1.2FC[facility] Mer[facility] Hospitalerum or plasma total bilirubin measurement (mass/volume)Ordered By: Colten Fry on 08-19-2022 Bilirubin [Mass/Vol]0.6 mg/dL0.3-1.2FCleveland Clinic Mercy Hospitalerum or plasma total carbon dioxide measurement (moles/volume)Ordered By: Gilson Castro on 99-45-0422GA3 [Moles/Vol]23.3 mmol/L22.0-30.0[facility] Hospitalerum or plasma total carbon dioxide measurement (moles/volume)Ordered By: Colten Fry on 48-04-1126PX3 [Moles/Vol]19.4 mmol/L22.0-30.0[facility] Hospitalerum or plasma urea nitrogen measurement (mass/volume) Ordered By: Gilson Castro on 10-55-8829Pkcs nitrogen [Mass/Vol]15 mg/dL08-20 [facility] Hospitalerum or plasma urea nitrogen measurement (mass/volume)Ordered By: Colten Fry on 16-02-6132Fvxl nitrogen [Mass/Vol]14 mg/dL08-20Genesis Hospitalpecific gravity Auto test strip (U) [Rel density]Ordered By: Gilson Castro on 64-16-1069Jsdlpaft gravity (U) [Rel density]1.0261.001-1.030[facility] Hospitalpecific gravity Auto test strip (U) [Rel density]Ordered By: Colten Fry on 71-95-0898Krerakav gravity (U) [Rel density]1.0231.001-1.030[facility] Squamous epithelial cells detection in urine sediment by light microscopyOrdered By: Gilson Castro on 39-76-6510Xnesmbzqcv cells.squamous LM Ql (Urine sed)20-30 [HPF]0-[facility] Hospitalquamous epithelial cells detection in urine sediment by light microscopyOrdered By: Colten Fry on 08-19-2022 Epithelial cells.squamous LM Ql (Urine sed)20-30 [HPF]0-[address] [place], [place] [address]Urine bacteria detection by automated methodOrdered By: Gilson Castro on 99-81-3601Ihqraify Auto Ql (U)2+None [facility] HospitalUrine bacteria detection by automated methodOrdered By: Colten Fry on 19-04-6333Qdjjbzit Auto Ql (U)1+None [facility] HospitalUrine clarity by refractometry automatedOrdered By: Gilson Castro on 89-03-7901Uakflpk Refractometry automated (U)TurbidCleHolmes County Joel Pomerene Memorial HospitalUrine clarity by refractometry automatedOrdered By: Colten Fry on 93-19-8487Uiywiay Refractometry automated (U)CloudyCleHolmes County Joel Pomerene Memorial HospitalUrine glucose measurement by automated test strip (mass/volume)Ordered By: Gilson Castro on 33-47-1700Tkrxemt Auto test strip (U) [Mass/Vol]Normal mg/dLRiverside Methodist HospitalUrine glucose measurement by automated test strip (mass/volume)Ordered By: Colten Fry on 88-42-9144Akapzht Auto test strip (U) [Mass/Vol]Normal mg/dLOhioHealth Mansfield HospitalUrine hemoglobin detection by automated test stripOrdered By: Gilson Castro on 62-27-8185Qgkuvzqsdj Auto test strip Ql (U)NegativeNegativeOhiohealth Arthur G.H. Bing, Md, Cancer CenterUrine hemoglobin detection by automated test stripOrdered By: Colten Fry on 35-69-9377Ubeijhfhby Auto test strip Ql (U)NegativeNegative [facility] CenterUrine leukocyte esterase detection by automated test stripOrdered By: Gilson Castro on 68-22-2223Ekthdmtef esterase Auto test strip Ql (U)2+NegativeOhiohealth Arthur G.H. Bing, Md, Cancer CenterUrine leukocyte esterase detection by automated test stripOrdered By: Colten Fry on 08-19-2022 Leukocyte esterase Auto test strip Ql (U)1+NegativeOhiohealth Arthur G.H. Bing, Md, Cancer CenterUrobilinogen Auto test strip (U) [Mass/Vol]Ordered By: Gilson Castro on 00-57-5328Msnxrhplqpgc (U) [Mass/Vol]Normal mg/dLNormFostoria City HospitalUrobilinogen Auto test strip (U) [Mass/Vol]Ordered By: Colten Fry on 08-70-2404Foqliidfsnkt (U) [Mass/Vol]Normal mg/dLNormFostoria City HospitalpH Auto test strip (U)Ordered By: Gilson Castro on 91-20-1706oL (U)8.0 [pH]5.0-9.0[facility] Cancer CenterpH Auto test strip (U)Ordered By: Colten Fry on 99-46-0702yE (U)6.0 [pH]5.0-9.0[facility], Cancer CenterCOVID-19 SOFIAOrdered By: Joss Rivera on 08-18-2022 SARS-CoV+SARS-CoV-2 (COVID-19) Ag IA.rapid Ql (Resp)NegativeNegativeOhiohealth Arthur G.H. Bing, Md, Cancer CenterComment on above:This is a duplicate Adia SARS Antigen (JOSE A) result to be used for statistical tracking purpose only.No Panel InformationOrdered By: Joss Rivera on 68-28-9349PPXM Antigen (LFIA)[facility] CenterBasophils Auto (Bld) [#/Vol]Ordered By: Modesta Chand on 50-35-4014Exowgewea (Bld) [#/Vol]0.1 10*3/uL0.0-0.1FDayton Osteopathic HospitalBasophils/100 WBC Auto (Bld)Ordered By: Modesta Chand on 01-36-0868Bpediwghn/100 WBC (Bld)1.2 %.[facility] CenterBlood hemoglobin measurement (mass/volume)Ordered By: Modesta Chand on 21-89-1714Dpsxgrlfyd (Bld) [Mass/Vol]13.8 g/dL12.0-16.0[facility] Cancer CenterBlood leukocytes automated count (number/volume)Ordered By: Modesta Chand on 51-43-8897ZKU (Bld) [#/Vol]7.9 10*3/uL4.5-13.5FDayton Osteopathic HospitalBody fluid albumin measurement (mass/volume)Ordered By: Modesta Chand on 96-94-5312Sfiykvx (Body fld) [Mass/Vol]4.5 g/dL3.2-5.5 [facility] CenterCT biopsyOrdered By: Modesta Chand on 06-10-5748Lvzpyvgbafg [Mass/Vol]328 mg/hO297-704HpnsrcuaoOhiohealth Arthur G.H. Bing, Md, Cancer CenterCreatinine and Glomerular filtration rate.predicted panel (S/P/Bld)Ordered By: Modesta Chand on 98-72-3732Pvbsnepdvi [Mass/Vol]0.67 mg/dL0.44-1.03 [facility] CenterEosinophils Auto (Bld) [#/Vol]Ordered By: Modesta Chand on 22-24-2417Zegmmigswuy (Bld) [#/Vol]0.6 10*3/uL0.0-0.7 [facility] CenterEosinophils/100 WBC Auto (Bld)Ordered By: Modesta Chand on 99-22-1875Wchoaodayju/100 WBC (Bld)7.2 %.[facility], Cancer CenterErythrocyte distribution width Auto (RBC) [Ratio]Ordered By: Modesta Chand on 29-31-4726Dzccccvgenx distribution width (RBC) [Ratio]13.6 %11.9-15.3FDayton Osteopathic HospitalEstimated glomerular filtration rate (GFR) non- AmericanOrdered By: Modesta Chand on 79-33-1458ZHG/1.73 sq M.predicted among non-blacks MDRD (S/P/Bld) [Vol rate/Area]> 60 mL/MinOhiohealth Arthur G.H. Bing, Md, Cancer CenterFerritin [Mass/volume] in Serum or PlasmaOrdered By: Modesta Chand on 47-47-1686Qixchiza [Mass/Vol] 28.5 ng/rI17-429.8[facility], Cancer CenterGlobulin Calc (S) [Mass/Vol] Ordered By: Modesta Chand on 35-45-4670Qvdrbrhr (S) [Mass/Vol]2.5 g/dL [facility] CenterHematocrit Auto (Bld) [Volume fraction]Ordered By: Modesta Chand on 79-15-6718Xcwhususlo (Bld) [Volume fraction]42.3 % 36.0-46.0[facility], Cancer CenterIron [Mass/volume] in Serum or Plasma Ordered By: Modesta Chand on 53-56-3904Reyl [Mass/Vol]52 ug/tU80-139 [facility] CenterIron binding capacity [Mass/volume] in Serum or PlasmaOrdered By: Modesta Chand on 58-32-7185Amla binding capacity [Mass/Vol]459 ug/cR744-665NhknzccvuOhiohealth Arthur G.H. Bing, Md, Cancer CenterIron saturation [Mass Fraction] in Serum or PlasmaOrdered By: Modesta Chand on 43-53-9920Hejv saturation [Mass fraction]11.0 %20-50[facility], Cancer CenterLaboratory - Hematology and Cell countsOrdered By: Modesta Chand on 06-25-2022 Nucleated RBC/100 WBC (Bld) [Ratio]0.0 %0-0.5FDayton Osteopathic Hospital Lymphocytes Auto (Bld) [#/Vol]Ordered By: Modesta Chand on 06-25-2022 Lymphocytes (Bld) [#/Vol]2.1 10*3/uL1.20-4.8[facility] Lymphocytes/100 WBC Auto (Bld)Ordered By: Modesta Chand on 06-25-2022 Lymphocytes/100 WBC (Bld)26.9 %.[facility] Auto (RBC) [Entitic mass]Ordered By: Modesta Chand on 92-60-3472YCO (RBC) [Entitic mass]28.1 pg25.0-35.0[facility] Cancer CenterMC Auto (RBC) [Mass/Vol] Ordered By: Modesta Chand on 19-00-2679PDAB (RBC) [Mass/Vol]32.7 g/dL 31.0-37.0[facility], Cancer CenterMCV Auto (RBC) [Entitic vol]Ordered By: Modesta Chand on 91-04-9449SCQ (RBC) [Entitic vol]85.8 lI91-159 [facility] CenterMonocytes Auto (Bld) [#/Vol]Ordered By: Modesta Chand on 72-35-4697Itvngnmrf (Bld) [#/Vol]0.6 10*3/uL0.1-1.00 [facility] CenterMonocytes/100 WBC Auto (Bld)Ordered By: Modesta Chand on 63-83-8085Dkbpyqmzp/100 WBC (Bld)7.2 %.[facility], Cancer CenterNeutrophils Auto (Bld) [#/Vol]Ordered By: Modesta Chand on 87-03-8463Ljkmjbmgjwh (Bld) [#/Vol]4.5 10*3/uL1.2-7.7FDayton Osteopathic HospitalNeutrophils/100 WBC Auto (Bld)Ordered By: Modesta Chand on 05-58-8999Ibbjjvkrcaj/100 WBC (Bld)57.5 %.[facility] CenterNo Panel InformationOrdered By: Modesta Chand on 15-55-606616245755-Nhhopqm Vitamin D Total35.9 ng/zD47-997PfjetbbitOhiohealth Arthur G.H. Bing, Md, Cancer CenterComment on above: VITAMIN D STATUS 25(OH)VITAMIN D RANGE (ng/mL) Deficient <20 Insufficient 20 to <30 Sufficient 30 to 100 Reference: Danica MF,Chayo NC, Sony GUERRERO, et al. Evaluation,treatment, and prevention of vitamin D deficiency; an Endocrine Society clinical practice guideline. JCEM. 2010; 96(7):1911-30.Absolute Reticulocyte Count0.066 10*6/uL0.024-0.084[facility] Estimated GFR ()> 60 mL/MinOhiohealth Arthur G.H. Bing, Md, Cancer Center Comment on above:GFR estimated reference range: According to KDOQI guidelines, <60 ml/min/1.73m2 is sufficient todiagnose a patient with chronic kidney disease.Percent Reticulocyte Count1.3 %0.5-1.5FDayton Osteopathic Hospital [facility] Creatinine Clearance (ChemN/AFDayton Osteopathic HospitalPlatelet mean volume Auto (Bld) [Entitic vol]Ordered By: Modesta Chand on 49-46-9749Mskgczhp mean volume (Bld) [Entitic vol]9.0 fL6.3-10.7FDayton Osteopathic HospitalPlatelets Auto (Bld) [#/Vol]Ordered By: Modesta Chand on 57-08-4744Djwjczrnc (Bld) [#/Vol]263 10*3/cE875-997ElsobrfgqOhiohealth Arthur G.H. Bing, Md, Cancer CenterProtein [Mass/volume] in Serum or PlasmaOrdered By: Modesta Chand on 24-34-0540Bhrkpay [Mass/Vol]7.0 g/dL6.1-7.9[facility], Cancer CenterRBC Auto (Bld) [#/Vol]Ordered By: Modesta Chand on 53-32-2442ECA (Bld) [#/Vol]4.94 10*6/uL4.10-5.10[facility] Hospitalerum or plasma alanine aminotransferase measurement without P-5'-P (enzymatic activiOrdered By: Modesta Chand on 46-30-3116OHD No additional P-5'-P [Catalytic activity/Vol]18 U/P58-87JyzaevfejGenesis Hospitalerum or plasma albumin/globulin mass ratioOrdered By: Modesat Chand on 92-63-8388Lkrfxlv/Globulin [Mass ratio]1.8 {ratio}[facility] Hospitalerum or plasma alkaline phosphatase measurement (enzymatic activity/volume)Ordered By: Modesta Chand on 50-78-3990CGR [Catalytic activity/Vol]65 U/F90-74OmrksfkjnGenesis Hospitalerum or plasma aspartate aminotransferase measurement (enzymatic activity/volume)Ordered By: Modesta Chand on 69-59-0624HHN [Catalytic activity/Vol]18 U/L10-42 [facility] Hospitalerum or plasma calcium measurement (mass/volume)Ordered By: Modesta Chand on 16-40-7053Sqsqcve [Mass/Vol]10.2 mg/dL8.2-10.2FCleveland Clinic Mercy Hospitalerum or plasma chloride measurement (moles/volume)Ordered By: Modesta Chand on 78-90-8207Ykmvpiry [Moles/Vol]102 mmol/T04-359ImprqxoznGenesis Hospitalerum or plasma glucose measurement (mass/volume)Ordered By: Modesta Chand on 06-25-2022 Glucose [Mass/Vol]87 mg/iG08-740OlvefgpdkOhiohealth Arthur G.H. Bing, Md, Cancer CenterComment on above:ADA recommended reference range Random Glucose Reference Range is dependent on time and content of last meal. Glucose of more than 200 mg/dL in a nonstressed, ambulatory subject supports the diagnosis of Diabetes Mellitus.Serum or plasma potassium measurement (moles/volume)Ordered By: Modesta Chand on 63-79-7496Fiexxwlvs [Moles/Vol] 4.4 mmol/L3.5-5.1FCleveland Clinic Mercy Hospitalerum or plasma sodium measurement (moles/volume)Ordered By: Modesta Chand on 83-14-0574Aymhqj [Moles/Vol]137 mmol/J121-130RypiegiaiGenesis Hospitalerum or plasma total bilirubin measurement (mass/volume)Ordered By: Modesta Chand on 01-25-7505Imbiqnjmx [Mass/Vol]0.4 mg/dL0.3-1.2FDayton Osteopathic Hospital Serum or plasma total carbon dioxide measurement (moles/volume)Ordered By: Modesta Chand on 56-91-7380WM9 [Moles/Vol]23.8 mmol/L22.0-30.0[facility] Hospitalerum or plasma urea nitrogen measurement (mass/volume) Ordered By: Modesta Chand on 14-70-9288Feui nitrogen [Mass/Vol]14 mg/dL 9-23[facility] CenterTS DL <= 0.005 mIU/L QnOrdered By: Modesta Chand on 09-32-6792EXJ Qn1.05 m[IU]/L0.45-5.33[facility], Cancer CenterThyroxine (T4) free [Mass/volume] in Serum or PlasmaOrdered By: Modesta Chand on 45-05-7242Hfat T4 [Mass/Vol]0.74 ng/dL0.61-1.12[facility], Cancer CenterHCG ( test) IA.rapid Ql (U)Ordered By: Brennen Britt on 18-74-1446HMU ( test) Ql (U)NegativeOhiohealth Arthur G.H. Bing, Md, Cancer CenterCOVID-19 Positive/NegativeOrdered By: Brennen Britt on 06-07-2022 SARS-CoV-2 (COVID-19) N gene JANAK+probe Ql (Resp)NegativeNegativeOhiohealth Arthur G.H. Bing, Md, Cancer CenterComment on above:Testing for SARS-CoV-2 by RT-PCR This test was developed and its performance characteristics determined by [employer], [employer] and validated at the [facility]. This test has not been FDA [...] of time the declaration that circumstances exist ju stifying the authorization of the emergency use of in vitro diagnostic tests for detection of SARS-CoV-2 virus and/or diagnosis of COVID-19 infection under section 564(b)(1) of the Act, 21 U.S.C. 360bbb-3(b)(1), unless the authorization is terminated or revoked sooner.Albumin [Mass/volume] in Serum or PlasmaOrdered By: Modesta Chand on 79-89-7384Ihvkrzu [Mass/Vol]3.9 g/dL3.2-5.5FDayton Osteopathic HospitalBasophils Auto (Bld) [#/Vol]Ordered By: Modesta Chand on 92-59-2224Fpcazhigy (Bld) [#/Vol]0.1 10*3/uL0.0-0.1FDayton Osteopathic HospitalBasophils/100 WBC Auto (Bld)Ordered By: Modesta Chand on 18-36-9335Thvyyshfx/100 WBC (Bld)1.1 %.[facility] CenterBlood hemoglobin measurement (mass/volume)Ordered By: Modesta Chand on 07-92-9020Gzokbuekww (Bld) [Mass/Vol]13.6 g/dL12.0-16.0[facility] CenterBlood leukocytes automated count (number/volume)Ordered By: Modesta Chand on 79-07-8598GAL (Bld) [#/Vol]10.6 10*3/uL4.5-13.5FDayton Osteopathic HospitalC reactive protein [Mass/volume] in Serum or Plasma Ordered By: Modesta Chand on 82-03-7703VHY [Mass/Vol]0.6 mg/dL0.0-1.0 [facility] CenterCT biopsyOrdered By: Modesta Chand on 70-82-8469Cmffkeracmi [Mass/Vol]292 mg/mW949-190IzqhvamowOhiohealth Arthur G.H. Bing, Md, Cancer CenterCreatinine and Glomerular filtration rate.predicted panel (S/P/Bld)Ordered By: Modesta Chand on 17-88-5320Watzfuffgf [Mass/Vol]0.63 mg/dL0.44-1.03 [facility] CenterEosinophils Auto (Bld) [#/Vol]Ordered By: Modesta Chand on 02-27-1544Ayxfwojmmog (Bld) [#/Vol]0.4 10*3/uL0.0-0.7 [facility] CenterEosinophils/100 WBC Auto (Bld)Ordered By: Modesta Chand on 97-87-5015Kcoeivqficz/100 WBC (Bld)3.6 %.[facility], Cancer CenterErythrocyte distribution width Auto (RBC) [Ratio]Ordered By: Modesta Chand on 82-70-3551Yaqweedudog distribution width (RBC) [Ratio]13.7 %11.9-15.3FDayton Osteopathic HospitalErythrocyte sedimentation rate by Photometric methodOrdered By: Modesta Chand on 39-33-1453MEY Photometric method (Bld) [Velocity]5 mm/hr0-19[facility] Estimated glomerular filtration rate (GFR) non- AmericanOrdered By: Modesta Chand on 93-29-0941MKM/1.73 sq M.predicted among non-blacks MDRD (S/P/Bld) [Vol rate/Area]> 60 mL/MinOhiohealth Arthur G.H. Bing, Md, Cancer CenterFerritin [Mass/volume] in Serum or PlasmaOrdered By: Modesta Chand on 05-26-2022 Ferritin [Mass/Vol]14.2 ng/lS61-015.8[facility], Cancer CenterFolate [Mass/volume] in Serum or PlasmaOrdered By: Modesta Chand on 05-26-2022 Folate [Mass/Vol]13.0 ng/mL>5.9[facility] Md, Cancer CenterComment on above:Folate reference range: >5.9 ng/ml The WHO technical consultation on folate and vitamin b12 deficiencies has determined that folate concentrations less than 4 ng/ml are considered deficient.Globulin Calc (S) [Mass/Vol]Ordered By: Modesta Chand on 28-69-0328Susazgnn (S) [Mass/Vol]2.3 g/dLOhiohealth Arthur G.H. Bing, Md, Cancer CenterGlucose mean value [Mass/volume] in Blood Estimated from glycated hemoglobinOrdered By: Modesta Chand on 18-79-2175Afjgqbn glucose Estimated from glycated hemoglobin (Bld) [Mass/Vol]111 mg/dLOhiohealth Arthur G.H. Bing, Md, Cancer CenterHematocrit Auto (Bld) [Volume fraction]Ordered By: oMdesta Chand on 25-29-7012Pcarknpfgd (Bld) [Volume fraction]41.4 %36.0-46.0 [facility] CenterHemoglobin A1c percentageOrdered By: Modesta Chand on 53-00-8871YnL1n (Bld) [Mass fraction]5.5 %4.3-5.6FDayton Osteopathic HospitalComment on above:Increased risk for diabetes: 5.7 - 6.4 diabetes: >6.4 glycemic control for adults with diabetes: <7.0Iron [Mass/volume] in Serum or PlasmaOrdered By: Modesta Chand on 34-83-5439Weux [Mass/Vol]63 ug/vM89-133 [facility] CenterIron binding capacity [Mass/volume] in Serum or PlasmaOrdered By: Modesta Chand on 24-39-5270Ixvv binding capacity [Mass/Vol]409 ug/rJ917-727PwlbhuwhyOhiohealth Arthur G.H. Bing, Md, Cancer CenterIron saturation [Mass Fraction] in Serum or PlasmaOrdered By: Modesta Chand on 95-76-4831Hile saturation [Mass fraction]15.0 %20-50[facility] CenterLaboratory - Chemistry and Chemistry - challengeOrdered By: Modesta Chand on 99-65-3347Hdmkmxnmw (Vitamin B12) [Mass/Vol]329 pg/kR653-591GvzopoovtOhiohealth Arthur G.H. Bing, Md, Cancer CenterLaboratory - Hematology and Cell countsOrdered By: Modesta Chand on 22-20-8093Nemgzrhdz RBC/100 WBC (Bld) [Ratio]0.0 %0-0.5FDayton Osteopathic HospitalLymphocytes Auto (Bld) [#/Vol]Ordered By: Modesta Chand on 15-52-4474Gvmzcwfcvud (Bld) [#/Vol]2.3 10*3/uL1.20-4.8[facility], Cancer CenterLymphocytes/100 WBC Auto (Bld)Ordered By: Modesta Chand on 23-39-0233Lzzqezvnxyq/100 WBC (Bld)21.6 %.[facility], Cancer CenterMCH Auto (RBC) [Entitic mass]Ordered By: Modesta Chand on 42-02-7915HJS (RBC) [Entitic mass]28.6 pg25.0-35.0[facility], Cancer CenterMCHC Auto (RBC) [Mass/Vol]Ordered By: Modesta Chand on 05-26-2022 MCHC (RBC) [Mass/Vol]33.0 g/dL31.0-37.0[facility] Cancer CenterMCV Auto (RBC) [Entitic vol]Ordered By: Modesta Chand on 35-31-5075PXC (RBC) [Entitic vol]86.6 rN98-839NyktifpkiOhiohealth Arthur G.H. Bing, Md, Cancer CenterMonocytes Auto (Bld) [#/Vol]Ordered By: Modesta Chand on 84-03-1956Wvxooprsc (Bld) [#/Vol]0.6 10*3/uL0.1-1.00[facility] CenterMonocytes/100 WBC Auto (Bld) Ordered By: Modesta Chand on 75-72-7274Pxgqfjbue/100 WBC (Bld)5.9 %. [facility] Cancer CenterNeutrophils Auto (Bld) [#/Vol]Ordered By: Modesta Chand on 65-53-5041Wiwovqbusrr (Bld) [#/Vol]7.2 10*3/uL1.2-7.7 [facility] Cancer CenterNeutrophils/100 WBC Auto (Bld)Ordered By: Modesta Chand on 87-73-9611Wmuluhamhte/100 WBC (Bld)67.8 %.[facility] CenterNo Panel InformationOrdered By: Modesta Chand on 16-55-535688383879-Pyulobr Vitamin D Total26.9 ng/jZ85-137HwzvszoutOhiohealth Arthur G.H. Bing, Md, Cancer CenterComment on above:VITAMIN D STATUS 25(OH)VITAMIN D RANGE (ng/mL) Deficient <20 Insufficient 20 to <30 Sufficient 30 to 100 Reference: Danica MF,Chayo WOODRUFF, Sony GUERRERO, et al. Evaluation,treatment, and prevention of vitamin D deficiency; an Endocrine Society clinical practice guideline. JCEM. 2010; 96(7):1911-30.Estimated GFR ()> 60 mL/MinOhiohealth Arthur G.H. Bing, Md, Cancer CenterComment on above: GFR estimated reference range: According to KDOQI guidelines, <60 ml/min/1.73m2 is sufficient todiagnose a patient with chronic kidney disease.Pharmacy Creatinine Clearance (ChemN/AFDayton Osteopathic HospitalPlatelet mean volume Auto (Bld) [Entitic vol]Ordered By: Modesta Chand on 05-26-2022 Platelet mean volume (Bld) [Entitic vol]8.9 fL6.3-10.7FDayton Osteopathic HospitalPlatelets Auto (Bld) [#/Vol]Ordered By: Modesta Chand on 05-26-2022 Platelets (Bld) [#/Vol]286 10*3/mV047-608GvlvjxipzOhiohealth Arthur G.[facility]. [facility], Cancer Center Protein [Mass/volume] in Serum or PlasmaOrdered By: Modesta Chand on 39-81-5336Ilszquf [Mass/Vol]6.2 g/dL6.1-7.9[facility], Cancer CenterRBC Auto (Bld) [#/Vol]Ordered By: Modesta Chand on 24-20-9826XVH (Bld) [#/Vol] 4.78 10*6/uL4.10-5.10Genesis Hospitalerum nuclear antibody titerOrdered By: Modesta Chand on 24-23-2621Dekgsrf Ab (S) [Titer]Negative .[facility] CenterComment on above:Negative <1:80 Borderline 1:80 Positive >1:80 ICAP nomenclature: AC-0 For more information about Hep-2 cell patterns use ANApatterns.org, the official website for the International Consensus on Antinuclear Antibody (EDMOND) Patterns (ICAP). Performed at: [employer] [id number] [employer] Assistant: James Nelson PhD, Phone: [phone] or plasma alanine aminotransferase measurement without P-5'-P (enzymatic activiOrdered By: Modesta Chand on 74-83-3585IAP No additional P-5'-P [Catalytic activity/Vol]50 U/S74-99GxpzajkrhGenesis Hospitalerum or plasma albumin/globulin mass ratioOrdered By: Modesta Chand on 05-26-2022 Albumin/Globulin [Mass ratio]1.7 {ratio}Gen[facility] Hospitalerum or plasma alkaline phosphatase measurement (enzymatic activity/volume)Ordered By: Modesta Chand on 83-69-8083PLC [Catalytic activity/Vol]58 U/L32-92 [facility] Hospitalerum or plasma aspartate aminotransferase measurement (enzymatic activity/volume)Ordered By: Modesta Chand on 30-05-1105ZBR [Catalytic activity/Vol]25 U/K77-25IrhycssbwGenesis Hospitalerum or plasma calcium measurement (mass/volume)Ordered By: Modesta Chand on 11-74-4756Qjppqhf [Mass/Vol]9.3 mg/dL8.2-10.2FCleveland Clinic Mercy Hospitalerum or plasma chloride measurement (moles/volume)Ordered By: Modesta Chand on 19-73-1057Zzuriafc [Moles/Vol]103 mmol/H83-830AdumksfofGenesis Hospitalerum or plasma glucose measurement (mass/volume)Ordered By: Modesta Chand on 38-97-8275Vlxlykh [Mass/Vol]111 mg/lF12-189NkdrouaoxOhiohealth Arthur G.H. Bing, Md, Cancer CenterComment on above:ADA recommended reference range Random Glucose Reference Range is dependent on time and content of last meal. Glucose of more than 200 mg/dL in a nonstressed, ambulatory subject supports the diagnosis of Diabetes Mellitus.Serum or plasma potassium measurement (moles/volume)Ordered By: Modesta Chand on 77-02-7099Pmuudwzao [Moles/Vol] 4.3 mmol/L3.5-5.1FCleveland Clinic Mercy Hospitalerum or plasma sodium measurement (moles/volume)Ordered By: Modesta Chand on 83-71-7815Skwpis [Moles/Vol]137 mmol/Y846-063BdvegrdlyGenesis Hospitalerum or plasma total bilirubin measurement (mass/volume)Ordered By: Modesta Chand on 49-20-5804Yirkhwqnm [Mass/Vol]0.5 mg/dL0.3-1.2FDayton Osteopathic Hospital Serum or plasma total carbon dioxide measurement (moles/volume)Ordered By: Modesta Chand on 88-53-0957GZ5 [Moles/Vol]24.9 mmol/L22.0-30.0Gen[facility] Hospitalerum or plasma urea nitrogen measurement (mass/volume) Ordered By: Modesta Chand on 37-80-2918Hxky nitrogen [Mass/Vol]9 mg/dL9-23 [facility] CenterUrine culture routineOrdered By: Gilson Castro on 59-55-6161Ssukubhs identified Cx Nom (U)2 DaysOhiohealth Arthur G.H. Bing, Md, Cancer CenterAmphetamine Screen Ql (U)Ordered By: Gilson Castro on 05-16-2022 Amphetamines Ql (U)NegativeNegativeOhiohealth Arthur G.H. Bing, Md, Cancer CenterAutomated erythrocytes count in urine sediment (number/area)Ordered By: Gilson Csatro on 14-99-5526VED Auto (Urine sed) [#/Area]3-4 [HPF]0-4FDayton Osteopathic HospitalAutomated leukocytes count in urine sediment (number/area)Ordered By: Gilson Castro on 86-43-9230XZC Auto (Urine sed) [#/Area]5-9 [HPF]0-4FDayton Osteopathic HospitalAutomated urine hyaline casts count (number/volume) Ordered By: Gilson Castro on 12-42-1767Tdaggvl casts Auto (U) [#/Vol]None seen [LPF]0-1FDayton Osteopathic HospitalBarbiturates [Presence] in UrineOrdered By: Gilson Castro on 67-80-7325Qimmkrtqyhgq Ql (U)PositiveNegSelect Medical Specialty Hospital - Southeast OhioBasophils Auto (Bld) [#/Vol]Ordered By: Gilson Castro on 93-01-6041Kttsrzijo (Bld) [#/Vol]0.0 10*3/uL0.0-0.1FDayton Osteopathic HospitalBasophils/100 WBC Auto (Bld)Ordered By: Gilson Castro on 05-16-2022 Basophils/100 WBC (Bld)0.4 %.[facility] CenterBenzodiazepines [Presence] in UrineOrdered By: Gilson Castro on 90-53-9411Jqvguvcjgwumjgp Ql (U) NegativeNegSelect Medical Specialty Hospital - Southeast OhioBilirubin Test strip Ql (U) Ordered By: Gilson Castro on 44-69-2299Ajdweyygr Ql (U)NegativeNegSelect Medical Specialty Hospital - Southeast OhioBlood hemoglobin measurement (mass/volume)Ordered By: Gilson Castro on 73-44-2530Hexjloaosc (Bld) [Mass/Vol]13.4 g/dL12.0-16.0 [facility] CenterBlood leukocytes automated count (number/volume)Ordered By: Gilson Castro on 20-78-0661ZOU (Bld) [#/Vol]10.0 10*3/uL4.5-13.5FDayton Osteopathic HospitalBody fluid albumin measurement (mass/volume)Ordered By: Gilson Castro on 03-99-3507Qoiresy (Body fld) [Mass/Vol]4.3 g/dL3.2-5.5FDayton Osteopathic HospitalCannabinoids [Presence] in Urine by Screen methodOrdered By: Gilson Castro on 05-16-2022 Cannabinoids Screen Ql (U)PositiveNegSelect Medical Specialty Hospital - [facility] [place] Comment on above:These are unconfirmed results and should not be used for legal purposes. Drug Cut-Off Concentration: AMPH 1000 ng/mL NIKOLAS 200 ng/mL SHRAVAN 200 ng/mL COCM 300 ng/mL OP 300 ng/mL PCP 25 ng/mL THC 20 ng/mLCasts typing in urine sediment by light microscopyOrdered By: Gilson Castro on 14-48-2472Czscp LM Nom (Urine sed)None seen [LPF]None SeenOhiohealth Arthur G.H. Bing, Md, Cancer CenterColor Auto (U)Ordered By: Gilson Castro on 05-16-2022 Color (U)YellowYellowOhiohealth Arthur G.H. Bing, Md, Cancer CenterCreatinine and Glomerular filtration rate.predicted panel (S/P/Bld)Ordered By: Gilson Castro on 05-16-2022 Creatinine [Mass/Vol]0.80 mg/dL0.44-1.03[facility] Eosinophils Auto (Bld) [#/Vol]Ordered By: Gilson Castro on 56-07-9834Tyqloxfgxpk (Bld) [#/Vol]0.1 10*3/uL0.0-0.7FDayton Osteopathic HospitalEosinophils/100 WBC Auto (Bld)Ordered By: Gilson Castro on 66-49-9140Wsvsdiqxwie/100 WBC (Bld) 0.7 %.[facility], Cancer CenterErythrocyte distribution width Auto (RBC) [Ratio]Ordered By: Gilson Castro on 36-37-1170Rukzdebggvi distribution width (RBC) [Ratio]13.4 %11.9-15.3FDayton Osteopathic HospitalEstimated glomerular filtration rate (GFR) non- AmericanOrdered By: Gilson Castro on 29-84-4490OVW/1.73 sq M.predicted among non-blacks MDRD (S/P/Bld) [Vol rate/Area]> 60 mL/MinOhiohealth Arthur G.H. Bing, Md, Cancer CenterGlobulin Calc (S) [Mass/Vol]Ordered By: Gilson Castro on 91-03-0967Xcvzqezn (S) [Mass/Vol]2.7 g/dL [facility] CenterHCG ( test) IA.rapid Ql (U)Ordered By: Gilson Castro on 15-13-5963DPR ( test) Ql (U)NegativeOhiohealth Arthur G.H. Bing, Md, Cancer CenterHematocrit Auto (Bld) [Volume fraction]Ordered By: Gilson Castro on 61-18-5346Afrjnluuxe (Bld) [Volume fraction]39.4 %36.0-46.0[facility], Cancer CenterKetones Auto test strip (U) [Mass/Vol]Ordered By: Gilson Castro on 23-34-5164Kitoxds (U) [Mass/Vol]3+NegativeOhiohealth Arthur G.H. Bing, Md, Cancer CenterLaboratory - Chemistry and Chemistry - challengeOrdered By: Gilson Castro on 86-80-5716Oviwgf [Catalytic activity/Vol]26.0 U/E57-15GbrfigjteOhiohealth Arthur G.H. Bing, Md, Cancer CenterLaboratory - Drug toxicologyOrdered By: Gilson Castro on 84-07-1511Fdflarh Ql (U)NegativeNegativeOhiohealth Arthur G.[facility]. [facility], Md, Cancer Center Laboratory - Hematology and Cell countsOrdered By: Gilson Castro on 05-16-2022 Nucleated RBC/100 WBC (Bld) [Ratio]0.0 %0-0.5FDayton Osteopathic Hospital Lymphocytes Auto (Bld) [#/Vol]Ordered By: Gilson Castro on 64-56-0398Lvzpqtofekd (Bld) [#/Vol]1.9 10*3/uL1.20-4.8[facility] Lymphocytes/100 WBC Auto (Bld)Ordered By: Gilson Castro on 05-16-2022 Lymphocytes/100 WBC (Bld)18.7 %.[facility] Auto (RBC) [Entitic mass]Ordered By: Gilson Castro on 05-53-9484CXT (RBC) [Entitic mass] 28.6 pg25.0-35.0[facility], Cancer CenterMCHC Auto (RBC) [Mass/Vol] Ordered By: Gilson Castro on 50-96-0628YZZL (RBC) [Mass/Vol]34.1 g/dL31.0-37.0 [facility] CenterMCV Auto (RBC) [Entitic vol]Ordered By: Gilson Castro on 83-34-3459KJT (RBC) [Entitic vol]84.0 gP52-489JihkmjayyOhiohealth Arthur G.H. Bing, Md, Cancer CenterMonocytes Auto (Bld) [#/Vol]Ordered By: Gilson Castro on 95-89-5281Rzvnozecx (Bld) [#/Vol]0.9 10*3/uL0.1-1.00[facility], Cancer CenterMonocytes/100 WBC Auto (Bld)Ordered By: Gilson Castro on 05-16-2022 Monocytes/100 WBC (Bld)9.2 %.[facility], Cancer CenterNeutrophils Auto (Bld) [#/Vol]Ordered By: Gilson Castro on 07-35-9432Cfuogzyvhye (Bld) [#/Vol]7.1 10*3/uL1.2-7.7FDayton Osteopathic HospitalNeutrophils/100 WBC Auto (Bld) Ordered By: Gilson Castro on 18-36-3872Mmgcbxtnmva/100 WBC (Bld)71.0 %.[facility], Cancer CenterNitrite Test strip Ql (U)Ordered By: Gilson Castro on 54-46-9377Npfbyxh Ql (U)NegativeNegativeOhiohealth Arthur G.H. [facility], Md, Cancer CenterNo Panel InformationOrdered By: Gilson Castro on 20-62-4492Lmuvzpoqa GFR ()> 60 mL/MinOhiohealth Arthur G.H. Bing, Md, Cancer CenterComment on above:GFR estimated reference range: According to KDOQI guidelines, <60 ml/min/1.73m2 is sufficient todiagnose a patient with chronic kidney disease.Pharmacy Creatinine Clearance (Rmpq586.65[facility], Cancer CenterPhencyclidine Screen Ql (U)Ordered By: Gilson Castro on 29-40-3822Rhxinryfzcqab Ql (U)NegativeNegative [facility] CenterPlatelet mean volume Auto (Bld) [Entitic vol] Ordered By: Gilson Castro on 92-30-6003Ghnhrbli mean volume (Bld) [Entitic vol] 8.5 fL6.3-10.7FDayton Osteopathic HospitalPlatelets Auto (Bld) [#/Vol] Ordered By: Gilson Castro on 84-70-8252Kmqdgdvxr (Bld) [#/Vol]241 10*3/nH825-700 [facility] CenterProtein Auto test strip (U) [Mass/Vol]Ordered By: Gilson Castro on 88-39-8501Gbhtmwk (U) [Mass/Vol]Trace mg/dLNegative [facility] CenterProtein [Mass/volume] in Serum or PlasmaOrdered By: Gilson Castro on 99-14-4972Aqxxqdr [Mass/Vol]7.0 g/dL6.1-7.9[facility], Cancer CenterRBC Auto (Bld) [#/Vol]Ordered By: Gilson Castro on 59-23-4342YAA (Bld) [#/Vol]4.69 10*6/uL4.10-5.10Gen[facility] Hospitalerum or plasma alanine aminotransferase measurement without P-5'-P (enzymatic activiOrdered By: Gilson Castro on 57-25-2247XDC No additional P-5'-P [Catalytic activity/Vol]23 U/Y29-03PovptcvqbGenesis Hospitalerum or plasma albumin/globulin mass ratioOrdered By: Gilson Castro on 05-16-2022 Albumin/Globulin [Mass ratio]1.6 {ratio}[facility] Hospitalerum or plasma alkaline phosphatase measurement (enzymatic activity/volume)Ordered By: Gilson Castro on 57-03-2385ZRW [Catalytic activity/Vol]58 U/P71-36AqtvqapciGenesis Hospitalerum or plasma aspartate aminotransferase measurement (enzymatic activity/volume)Ordered By: Gilson Castro on 86-31-9103ICD [Catalytic activity/Vol]22 U/C44-78JktwnqmzhGenesis Hospitalerum or plasma calcium measurement (mass/volume)Ordered By: Gilson Castro on 02-54-2660Etjaorl [Mass/Vol]9.2 mg/dL8.2-10.2FCleveland Clinic Mercy Hospitalerum or plasma chloride measurement (moles/volume)Ordered By: Gilson Castro on 05-16-2022 Chloride [Moles/Vol]97 mmol/C45-589MsjonnrvfGenesis Hospitalerum or plasma glucose measurement (mass/volume)Ordered By: Gilson Castro on 05-16-2022 Glucose [Mass/Vol]90 mg/mL89-117DmoplwqvuOhiohealth Arthur G.H. Bing, Md, Cancer CenterComment on above:ADA recommended reference range Random Glucose Reference Range is dependent on time and content of last meal. Glucose of more than 200 mg/dL in a nonstressed, ambulatory subject supports the diagnosis of Diabetes Mellitus.Serum or plasma potassium measurement (moles/volume)Ordered By: Gilson Castro on 58-83-9690Mazdnrttx [Moles/Vol]3.2 mmol/L3.5-5.1FCleveland Clinic Mercy Hospitalerum or plasma sodium measurement (moles/volume)Ordered By: Gilson Castro on 81-70-0470Swdpjg [Moles/Vol]135 mmol/W644-169RtnhuawikGenesis Hospitalerum or plasma total bilirubin measurement (mass/volume)Ordered By: Gilson Castro on 70-88-8257Wokxjogss [Mass/Vol]1.0 mg/dL0.3-1.2FCleveland Clinic Mercy Hospitalerum or plasma total carbon dioxide measurement (moles/volume)Ordered By: Gilson Castro on 29-19-7462TQ5 [Moles/Vol]24.6 mmol/L22.0-30.0[facility] Serum or plasma urea nitrogen measurement (mass/volume)Ordered By: Gilson Castro on 49-52-5674Vcap nitrogen [Mass/Vol]23 mg/dL9-23Genesis Hospitalpecific gravity Auto test strip (U) [Rel density]Ordered By: Gilson Castro on 11-14-9415Fqvgzlyy gravity (U) [Rel density]1.0231.001-1.030 Genesis Hospitalquamous epithelial cells detection in urine sediment by light microscopyOrdered By: Gilson Castro on 12-85-8403Yneqmviezs cells.squamous LM Ql (Urine sed)20-30 [HPF]0-2FDayton Osteopathic Hospital Urine bacteria detection by automated methodOrdered By: Gilson Castro on 53-22-5782Scjzxffc Auto Ql (U)1+None SeenOhiohealth Arthur G.H. Bing, Md, Cancer CenterUrine clarity by refractometry automatedOrdered By: Gilson Castro on 40-37-4373Zisxymc Refractometry automated (U)TurbidCleHolmes County Joel Pomerene Memorial HospitalUrine cocaine detectionOrdered By: Gilson Castro on 18-76-4311Bmnmklw Ql (U)Negative NegativeOhiohealth Arthur G.H. Bing, Md, Cancer CenterUrine glucose measurement by automated test strip (mass/volume)Ordered By: Gilson Castro on 58-10-2235Dqdvxuz Auto test strip (U) [Mass/Vol]Normal mg/dLNormalOhiohealth Arthur G.H. Bing, Md, Cancer CenterUrine hemoglobin detection by automated test stripOrdered By: Gilson Castro on 56-69-0479Mbfoohanws Auto test strip Ql (U)NegativeNegativeOhiohealth Arthur G.H. Bing, Md, Cancer CenterUrine leukocyte esterase detection by automated test stripOrdered By: Gilson Castro on 42-66-7581Ynsuwzayd esterase Auto test strip Ql (U)2+ NegativeOhiohealth Arthur G.H. Bing, Md, Cancer CenterUrobilinogen Auto test strip (U) [Mass/Vol]Ordered By: Gilson Castro on 15-57-6634Dljeqekavokh (U) [Mass/Vol] Normal mg/dLNormalOhiohealth Arthur G.H. Bing, Md, Cancer CenterpH Auto test strip (U)Ordered By: Gilson Castro on 87-73-2557kR (U)8.0 [pH]5.0-9.0[facility], [facility] CenterAlbumin [Mass/volume] in Serum or PlasmaOrdered By: Art Bianchi on 22-14-3012Wpgjhpa [Mass/Vol]4.7 g/dL3.2-5.5FDayton Osteopathic Hospital Basophils Auto (Bld) [#/Vol]Ordered By: rAt Bianchi on 83-69-8891Aknaoemfc (Bld) [#/Vol]0.0 10*3/uL0.0-0.1FDayton Osteopathic HospitalBasophils/100 WBC Auto (Bld)Ordered By: Art Bianchi on 45-62-3066Gwwdboiac/100 WBC (Bld)0.2 %. [facility] CenterBlood hemoglobin measurement (mass/volume) Ordered By: Art Bianchi on 22-45-4139Wnuyongvut (Bld) [Mass/Vol]13.6 g/dL 12.0-16.0[facility], Cancer CenterBlood leukocytes automated count (number/volume)Ordered By: Art Bianchi on 69-89-3255OAS (Bld) [#/Vol]14.0 10*3/uL4.5-13.5FDayton Osteopathic HospitalCreatinine and Glomerular filtration rate.predicted panel (S/P/Bld)Ordered By: Art Bianchi on 05-15-2022 Creatinine [Mass/Vol]0.76 mg/dL0.44-1.03[facility] Eosinophils Auto (Bld) [#/Vol]Ordered By: Art Bianchi on 36-17-2197Gidkqcrteds (Bld) [#/Vol]0.0 10*3/uL0.0-0.7FDayton Osteopathic HospitalEosinophils/100 WBC Auto (Bld)Ordered By: Art Bianchi on 18-24-1623Djjytfezoqt/100 WBC (Bld)0.4 %.[facility], Cancer CenterErythrocyte distribution width Auto (RBC) [Ratio]Ordered By: Art Bianchi on 65-98-2917Mgouwaclubi distribution width (RBC) [Ratio]13.7 %11.9-15.3FDayton Osteopathic HospitalEstimated glomerular filtration rate (GFR) non- AmericanOrdered By: Art Bianchi on 05-15-2022 GFR/1.73 sq M.predicted among non-blacks MDRD (S/P/Bld) [Vol rate/Area]> 60 mL/MinOhiohealth Arthur G.H. Bing, Md, Cancer CenterGlobulin Calc (S) [Mass/Vol]Ordered By: Art Bianchi on 83-90-9620Obvylcth (S) [Mass/Vol]3.2 g/dLOhiohealth Arthur G.H. Bing, Md, Cancer CenterHematocrit Auto (Bld) [Volume fraction]Ordered By: Art Bianchi on 92-00-8957Yylvfmhunq (Bld) [Volume fraction]41.0 %36.0-46.0[facility], [facility] CenterLaboratory - Chemistry and Chemistry - challengeOrdered By: Art Bianchi on 94-16-2523Kjgcym [Catalytic activity/Vol]24.0 U/Q96-98MxoxfxurqOhiohealth Arthur G.H. Bing, Md, Cancer CenterLaboratory - Hematology and Cell countsOrdered By: Art Bianchi on 94-80-6286Bckkhvadr RBC/100 WBC (Bld) [Ratio]0.0 %0-0.5FDayton Osteopathic HospitalLymphocytes Auto (Bld) [#/Vol]Ordered By: Art Bianchi on 69-53-7216Rcztfcpioay (Bld) [#/Vol]2.6 10*3/uL1.20-4.8[facility], Cancer CenterLymphocytes/100 WBC Auto (Bld)Ordered By: Art Bianchi on 05-15-2022 Lymphocytes/100 WBC (Bld)18.4 %.[facility], Cancer CenterMCH Auto (RBC) [Entitic mass]Ordered By: Art Bianchi on 70-67-1529LPB (RBC) [Entitic mass]28.0 pg25.0-35.0[facility], Cancer CenterMCHC Auto (RBC) [Mass/Vol]Ordered By: Art Bianchi on 65-78-0081LWZI (RBC) [Mass/Vol]33.3 g/dL31.0-37.0[facility], Cancer CenterMCV Auto (RBC) [Entitic vol]Ordered By: Art Bianchi on 79-39-9555GFO (RBC) [Entitic vol]84.1 hA70-715XlbxgwcaoOhiohealth Arthur G.H. Bing, Md, Cancer Center Monocytes Auto (Bld) [#/Vol]Ordered By: Art Bianchi on 28-03-8890Rqieuiafh (Bld) [#/Vol]1.2 10*3/uL0.1-1.00[facility] CenterMonocytes/100 WBC Auto (Bld)Ordered By: Art Bianchi on 47-70-8718Snaqtfbuo/100 WBC (Bld)8.3 %. [facility] Cancer CenterNeutrophils Auto (Bld) [#/Vol]Ordered By: Art Bianchi on 92-52-4847Egxeopsnogf (Bld) [#/Vol]10.2 10*3/uL1.2-7.7FDayton Osteopathic HospitalNeutrophils/100 WBC Auto (Bld)Ordered By: Art Bianchi on 69-59-0183Ivyuztpiccu/100 WBC (Bld)72.7 %.[facility] CenterNo Panel InformationOrdered By: Art Bianchi on 10-45-5067Qindzkese GFR ()> 60 mL/MinOhiohealth Arthur G.H. Bing, Md, Cancer CenterComment on above:GFR estimated reference range: According to KDOQI guidelines, <60 ml/min/1.73m2 is sufficient todiagnose a patient with chronic kidney disease.Pharmacy Creatinine Clearance (Vaft012.34[facility], Cancer CenterPlatelet mean volume Auto (Bld) [Entitic vol]Ordered By: Art Bianchi on 02-38-1902Vqzozkus mean volume (Bld) [Entitic vol]8.8 fL6.3-10.7FDayton Osteopathic HospitalPlatelets Auto (Bld) [#/Vol]Ordered By: Art Bianchi on 52-36-1832Yeyyglsyi (Bld) [#/Vol]315 10*3/jV329-106BbthdacxdOhiohealth Arthur G.H. Bing, Md, Cancer CenterProtein [Mass/volume] in Serum or PlasmaOrdered By: Art Bianchi on 09-36-8509Qmqakzw [Mass/Vol]7.9 g/dL6.1-7.9 [facility] CenterRBC Auto (Bld) [#/Vol]Ordered By: Art Bianchi on 38-82-4257QYZ (Bld) [#/Vol]4.88 10*6/uL4.10-5.10Gen[facility] Hospitalerum or plasma alanine aminotransferase measurement without P-5'-P (enzymatic activiOrdered By: Art Bianchi on 83-83-7883HWA No additional P-5'-P [Catalytic activity/Vol]25 U/I94-74BnhhefgznGenesis Hospitalerum or plasma albumin/globulin mass ratioOrdered By: Art Bianchi on 05-15-2022 Albumin/Globulin [Mass ratio]1.5 {ratio}[facility] Hospitalerum or plasma alkaline phosphatase measurement (enzymatic activity/volume)Ordered By: Art Bianchi on 97-53-4853SOA [Catalytic activity/Vol]66 U/A16-30JckrvsafqGenesis Hospitalerum or plasma aspartate aminotransferase measurement (enzymatic activity/volume)Ordered By: Art Bianchi on 23-45-7622TEY [Catalytic activity/Vol]33 U/I91-78DhdwfvuxyGenesis Hospitalerum or plasma calcium measurement (mass/volume)Ordered By: Art Bianchi on 45-68-9758Tavfkia [Mass/Vol] 10.1 mg/dL8.2-10.2FCleveland Clinic Mercy Hospitalerum or plasma chloride measurement (moles/volume)Ordered By: Art Bianchi on 17-73-2495Abkpeofw [Moles/Vol]94 mmol/U54-324ZjkcysvdzGenesis Hospitalerum or plasma glucose measurement (mass/volume)Ordered By: Art Bianchi on 46-67-2308Kzxvqdv [Mass/Vol]102 mg/uD97-567GwkpeujupOhiohealth Arthur G.H. Bing, Md, Cancer CenterComment on above:ADA recommended reference range Random Glucose Reference Range is dependent on time and content of last meal. Glucose of more than 200 mg/dL in a nonstressed, ambulatory subject supports the diagnosis of Diabetes Mellitus.Serum or plasma potassium measurement (moles/volume)Ordered By: Art Bianchi on 30-39-2778Uuzhrmvak [Moles/Vol]3.1 mmol/L3.5-5.1FCleveland Clinic Mercy Hospitalerum or plasma sodium measurement (moles/volume)Ordered By: Art Bianchi on 55-15-5615Dxflsx [Moles/Vol]135 mmol/L 136-146Genesis Hospitalerum or plasma total bilirubin measurement (mass/volume)Ordered By: Art Bianchi on 62-96-4433Jgbudqvcs [Mass/Vol]1.2 mg/dL0.3-1.2FCleveland Clinic Mercy Hospitalerum or plasma total carbon dioxide measurement (moles/volume)Ordered By: Art Bianchi on 05-15-2022 CO2 [Moles/Vol]22.2 mmol/L22.0-30.0Gen[facility] Hospitalerum or plasma urea nitrogen measurement (mass/volume)Ordered By: Art Bianchi on 98-24-1710Ljxv nitrogen [Mass/Vol]23 mg/dL9-23[facility] Albumin [Mass/volume] in Serum or PlasmaOrdered By: Art Bianchi on 05-13-2022 Albumin [Mass/Vol]4.3 g/dL3.2-5.5FDayton Osteopathic HospitalAutomated erythrocytes count in urine sediment (number/area)Ordered By: Art Bianchi on 22-35-4524WRQ Auto (Urine sed) [#/Area]1-2 [HPF]0-4FDayton Osteopathic HospitalAutomated leukocytes count in urine sediment (number/area)Ordered By: Art Bianchi on 77-79-5774DYG Auto (Urine sed) [#/Area]1-2 [HPF]0-4FDayton Osteopathic HospitalBasophils Auto (Bld) [#/Vol]Ordered By: Art Bianchi on 84-21-7209Ejggrpxaq (Bld) [#/Vol]0.1 10*3/uL0.0-0.1FDayton Osteopathic HospitalBasophils/100 WBC Auto (Bld)Ordered By: Art Bianchi on 05-13-2022 Basophils/100 WBC (Bld)1.0 %.[facility], Cancer CenterBilirubin Test strip Ql (U)Ordered By: Art Bianchi on 15-99-9381Btebqilhc Ql (U)Negative NegativeOhiohealth Arthur G.H. Bing, Md, Cancer CenterBlood hemoglobin measurement (mass/volume)Ordered By: Art Bianchi on 27-11-2418Gquxuqlvjs (Bld) [Mass/Vol] 13.7 g/dL12.0-16.0[facility], Cancer CenterBlood leukocytes automated count (number/volume)Ordered By: Art Bianchi on 08-77-3011USA (Bld) [#/Vol]10.4 10*3/uL4.5-13.5FDayton Osteopathic HospitalColor Auto (U)Ordered By: Art Bianchi on 51-33-6094Bmyei (U)YellowYellowOhiohealth Arthur G.[facility]. [facility], Cancer Center Creatinine and Glomerular filtration rate.predicted panel (S/P/Bld)Ordered By: Art Bianchi on 09-51-5297Rbwjfctyrr [Mass/Vol]0.76 mg/dL0.44-1.03[facility], Cancer CenterEosinophils Auto (Bld) [#/Vol]Ordered By: Art Bianchi on 01-18-6470Kciwtyhlhgd (Bld) [#/Vol]0.5 10*3/uL0.0-0.7FDayton Osteopathic HospitalEosinophils/100 WBC Auto (Bld)Ordered By: Art Bianchi on 05-13-2022 Eosinophils/100 WBC (Bld)4.6 %.[facility] Cancer CenterErythrocyte distribution width Auto (RBC) [Ratio]Ordered By: Art Bianchi on 05-13-2022 Erythrocyte distribution width (RBC) [Ratio]13.6 %11.9-15.3FDayton Osteopathic HospitalEstimated glomerular filtration rate (GFR) non- Ordered By: Art Bianchi on 34-54-2826ANG/1.73 sq M.predicted among non-blacks MDRD (S/P/Bld) [Vol rate/Area]> 60 mL/MinOhiohealth Arthur G.H. Bing, Md, Cancer Center Globulin Calc (S) [Mass/Vol]Ordered By: Art Bianchi on 06-78-9455Sghfdxjw (S) [Mass/Vol]2.7 g/dLOhiohealth Arthur G.H. Bing, Md, Cancer CenterHCG ( test) IA.rapid Ql (U)Ordered By: Art Bianchi on 48-92-2080HQA ( test) Ql (U)Negative [facility] CenterHematocrit Auto (Bld) [Volume fraction]Ordered By: Art Bianchi on 40-80-2090Mrqwhtrgth (Bld) [Volume fraction]40.5 %36.0-46.0 [facility] CenterKetst. vincent mercy hospital Auto test strip (U) [Mass/Vol]Ordered By: Art Bianchi on 12-16-3925Aborpyp (U) [Mass/Vol]TraceNegativeOhiohealth Arthur G.H. Bing, Md, Cancer CenterLaboratory - Hematology and Cell countsOrdered By: Art Bianchi on 82-90-3065Vtcgepyhv RBC/100 WBC (Bld) [Ratio]0.0 %0-0.5FDayton Osteopathic HospitalLaboratory - UrinalysisOrdered By: Art Bianchi on 04-18-1022Ujvatuj casts LM Ql (Urine sed)0-8 [LPF]0-8[facility], Cancer CenterLymphocytes Auto (Bld) [#/Vol]Ordered By: Art Bianchi on 05-13-2022 Lymphocytes (Bld) [#/Vol]1.4 10*3/uL1.20-4.8[facility] Lymphocytes/100 WBC Auto (Bld)Ordered By: Art Bianchi on 05-13-2022 Lymphocytes/100 WBC (Bld)13.1 %.[facility] Auto (RBC) [Entitic mass]Ordered By: Art Bianchi on 71-91-6162HUD (RBC) [Entitic mass]28.6 pg25.0-35.0[facility], Cancer CenterMCHC Auto (RBC) [Mass/Vol]Ordered By: Art Bianchi on 00-14-3896DWRA (RBC) [Mass/Vol]33.7 g/dL31.0-37.0[facility] Cancer CenterMCV Auto (RBC) [Entitic vol]Ordered By: Art Bianchi on 17-22-9701DKE (RBC) [Entitic vol]84.7 xM63-099LryedpmqsOhiohealth Arthur G.H. Bing, Md, Cancer Center Monocytes Auto (Bld) [#/Vol]Ordered By: Art Bianchi on 52-51-0596Nvteskxxe (Bld) [#/Vol]0.4 10*3/uL0.1-1.00[facility] Cancer CenterMonocytes/100 WBC Auto (Bld)Ordered By: Art Bianchi on 17-23-6791Hkgregjwc/100 WBC (Bld)4.2 %. [facility] Cancer CenterNeutrophils Auto (Bld) [#/Vol]Ordered By: Art Bianchi on 65-66-1222Ezacsnadtct (Bld) [#/Vol]8.0 10*3/uL1.2-7.7FDayton Osteopathic HospitalNeutrophils/100 WBC Auto (Bld)Ordered By: Art Bianchi on 96-47-2077Vwvkalgzque/100 WBC (Bld)77.1 %.[facility] Nitrite Test strip Ql (U)Ordered By: Art Bianchi on 39-07-3858Ogvberb Ql (U) NegativeNegSelect Medical Specialty Hospital - Southeast [place]No Panel InformationOrdered By: Art Bianchi on 49-43-0040Aouuhyoii GFR ()> 60 mL/MinOhiohealth Arthur G.H. Bing, Md, Cancer CenterComment on above:GFR estimated reference range: According to KDOQI guidelines, <60 ml/min/1.73m2 is sufficient todiagnose a patient with chronic kidney disease.Pharmacy Creatinine Clearance (Node924.80[facility], Cancer CenterPlatelet mean volume Auto (Bld) [Entitic vol]Ordered By: Art Bianchi on 40-26-5751Hxgirhzp mean volume (Bld) [Entitic vol]8.6 fL6.3-10.7 [facility], Cancer CenterPlatelets Auto (Bld) [#/Vol]Ordered By: Art Bianchi on 61-98-6125Sgrsdyqae (Bld) [#/Vol]264 10*3/hY796-311WyuhllunkOhiohealth Arthur G.H. Bing, Md, Cancer CenterProtein Auto test strip (U) [Mass/Vol]Ordered By: Art Bianchi on 23-68-6833Dglzhuc (U) [Mass/Vol]30 mg/dLNegativeOhiohealth Arthur G.H. Bing, Md, Cancer CenterProtein [Mass/volume] in Serum or PlasmaOrdered By: Art Bianchi on 44-30-4389Kgurhtq [Mass/Vol]7.0 g/dL6.1-7.9[facility], Cancer CenterRBC Auto (Bld) [#/Vol]Ordered By: Art Bianchi on 19-31-7346URV (Bld) [#/Vol]4.78 10*6/uL4.10-5.10Genesis Hospitalerum or plasma alanine aminotransferase measurement without P-5'-P (enzymatic activiOrdered By: Art Bianchi on 51-70-0650FMX No additional P-5'-P [Catalytic activity/Vol]19 U/L10-60 [facility] Hospitalerum or plasma albumin/globulin mass ratio Ordered By: Art Bianchi on 15-02-6628Duqgjhs/Globulin [Mass ratio]1.6 {ratio} Genesis Hospitalerum or plasma alkaline phosphatase measurement (enzymatic activity/volume)Ordered By: Art Bianchi on 57-33-4668NDT [Catalytic activity/Vol]69 U/Z12-66GebjcgppeGenesis Hospitalerum or plasma aspartate aminotransferase measurement (enzymatic activity/volume)Ordered By: Art Bianchi on 60-62-6527OCX [Catalytic activity/Vol]19 U/I87-93RhsatxoraGenesis Hospitalerum or plasma calcium measurement (mass/volume)Ordered By: Art Bianchi on 38-81-0843Dwagnub [Mass/Vol]9.9 mg/dL8.2-10.2FCleveland Clinic Mercy Hospitalerum or plasma chloride measurement (moles/volume) Ordered By: Art Bianchi on 01-52-0266Blfzesco [Moles/Vol]107 mmol/L95-114 [facility] Hospitalerum or plasma glucose measurement (mass/volume)Ordered By: Art Bianchi on 80-49-8176Ytvdegi [Mass/Vol]140 mg/dL 70-100[facility], Cancer CenterComment on above:ADA recommended reference range Random Glucose Reference Range is dependent on time and content of last meal. Glucose of more than 200 mg/dL in a nonstressed, ambulatory subject supports the diagnosis of Diabetes Mellitus.Serum or plasma potassium measurement (moles/volume)Ordered By: Art Bianchi on 99-34-8200Klntnlvcf [Moles/Vol]3.7 mmol/L3.5-5.1FCleveland Clinic Mercy Hospitalerum or plasma sodium measurement (moles/volume)Ordered By: Art Bianchi on 79-48-1973Uoevsz [Moles/Vol]138 mmol/L 136-146Genesis Hospitalerum or plasma total bilirubin measurement (mass/volume)Ordered By: Art Bianchi on 74-85-1627Ugkqnbtyc [Mass/Vol]0.5 mg/dL0.3-1.2FCleveland Clinic Mercy Hospitalerum or plasma total carbon dioxide measurement (moles/volume)Ordered By: Art Bianchi on 05-13-2022 CO2 [Moles/Vol]19.0 mmol/L22.0-30.0Genesis Hospitalerum or plasma urea nitrogen measurement (mass/volume)Ordered By: Art Bianchi on 64-85-8551Ppjq nitrogen [Mass/Vol]11 mg/dL9-23[facility] Specific gravity Auto test strip (U) [Rel density]Ordered By: Art Bianchi on 54-85-5042Gssxwqqi gravity (U) [Rel density]1.0181.001-1.030Genesis Hospitalquamous epithelial cells detection in urine sediment by light microscopyOrdered By: Art Bianchi on 52-43-8756Pwiewiojet cells.squamous LM Ql (Urine sed)20-30 [HPF]0-[address] [place], [place] [address]Urine bacteria detection by automated methodOrdered By: Art Bianchi on 91-53-9888Plinmjro Auto Ql (U)2+None SeenOhiohealth Arthur G.H. Bing, Md, Cancer CenterUrine clarity by refractometry automatedOrdered By: Art Bianchi on 19-26-6577Fmterwt Refractometry automated (U)CloudyClearFDayton Osteopathic HospitalUrine glucose measurement by automated test strip (mass/volume)Ordered By: Art Bianchi on 42-14-8160Qvtaeot Auto test strip (U) [Mass/Vol]Normal mg/dLNormalOhiohealth Arthur G.H. Bing, Md, Cancer CenterUrine hemoglobin detection by automated test stripOrdered By: Art Bianchi on 45-67-6497Fzmfbnvkge Auto test strip Ql (U)NegativeNegativeOhiohealth Arthur G.H. Bing, Md, Cancer CenterUrine leukocyte esterase detection by automated test stripOrdered By: Art Bianchi on 95-34-2680Lqcmfbiwz esterase Auto test strip Ql (U)Negative NegativeOhiohealth Arthur G.H. Bing, Md, Cancer CenterUrobilinogen Auto test strip (U) [Mass/Vol]Ordered By: Art Bianchi on 26-14-3766Eezucpxslnjv (U) [Mass/Vol]Normal mg/dLNormalOhiohealth Arthur G.H. Bing, Md, Cancer CenterpH Auto test strip (U)Ordered By: Art Bianchi on 92-29-6689cK (U)[pH]5.0-9.0[facility], Cancer CenterCNPN on 26-55-3096USPMUewmrptvp (OTOLMN) PILI PARIKH ([id number]) 3 F Date Time Provider Department 10/10/21 ROLANDO WOOTEN OTOLMN During your visit today, we recorded the following information about you: Rolando Wooten MD 10/10/2021 12:44 PM Signed Spoke with patient. Monospot positive. Waiting on CBC with diff - wbc 10. She feels ok, just sore throat after incision for [employer] yesterday. Ordered further labs as somewhat atypical [...] [B27.80] Order(s):HEPATIC FUNCTION PNL [SQHFP] Order #: [id number] FUTURE HIV 1 2 COMBO(AG/AB),WITH REFLEX TO DIFFERENTIATION [SQHIV12] Order #: [id number] FUTURE CMV IGG/IGM TITER [[id number]] Order #: [id number] FUTURE LISSA-HENSON VCA IGM [SQEBVM] Order #: [id number] FUTURE EBV EA AB IGG [[id number]] Order #: [id number] FUTURE LISSA-HENSON VCA IGG [SQEBVG] Order #: [id number] FUTURE CMV IGG/IGM TITER [[id number]] Order #: [id number] EBV EA AB IGG [[id number]] Order #: [id number] Prescriptions as of 10/27/2021 - HYDROcodone-acetaminophen (HYCET) [...] 10/09/2021 Encounter Status:Closed by ROLANDO WOOTEN on 10/10/21NoGerman HospitalAFB Cult and Stainon 90-48-7711HEI Cult and StainSp. Request/Comment: - Specimen received in sterile container. Smear Result - No acid fast bacilli seen by fluorochrome stain Culture Result - No Acid Fast Bacilli isolated after 46 daysNoGerman HospitalComment on above:Performed By: #### AFC #### [facility] [address] [place] [address] Zauljrpp Cultureon 45-41-0652Szffxsps CultureSp. Request/Comment: - Specimen received in sterile container. Culture Result - Few Mixed anaerobic jori --> ABNORMAL ALERT No Bacteroides fragilis group isolated. No Clostridium perfringens isolatedCritically abnormal [facility]itrick HospitalComharbor beach community hospital on above:Performed By: #### ANACUL #### [facility] [address] [place], [place] [address] Mdeqz Metabolic Panlon 85-48-7058Ikurm gap [Moles/Vol]14 mmol/L Normal9-18[facility] on above:Result Comment: (NOTE) Reference ranges for this patient's age group have not been established. These reference ranges reflect verified or established ranges for the adult population. Interpret these ranges with caution using the clinical context and additional reference resources.Performed By: #### CBCDIF, BMP, MONOLX #### [place] [address] [place] [address] Syjiarr [Mass/Vol]9.4 mg/dLNormal8.4-10.2CKing's Daughters Medical Center [place] Comment on above:Performed By: #### CBCDIF, BMP, MONOLX #### [place] [address] [place] [id number] Ihqzfeqb [Moles/Vol]99 mmol/IDflgms93-484LrsgpcknnMckitrick Hospital Comment on above:Result Comment: (NOTE) Reference ranges for this patient's age group have not been established. These reference ranges reflect verified or established ranges for the adult population. Interpret these ranges with caution using the clinical context and additional reference resources.Performed By: #### CBCDIF, BMP, MONOLX #### [facility] [place], [place] [address] PZ8 [Moles/Vol]23 mmol/YGxxtwi05-48HdmkdyemrAultman Hospital on above:Result Comment: (NOTE) Reference ranges for this patient's age group have not been established. These reference ranges reflect verified or established ranges for the adult population. Interpret these ranges with caution using the clinical context and additional reference resources.Performed By: #### CBCDIF, BMP, MONOLX #### [facility] [address] [place], [place] [address] Vsjdmdhgff [Mass/Vol]0.64 mg/dLNormal0.58-0.96Mckitrick HospitalComment on above:Result Comment: Reference ranges for this patient's age group have not been established. These reference ranges reflect verified or established ranges for the adult population. Interpret these rangeswith caution using the clinical context and additional reference resources.Performed By: #### POPEYEFCHRISTEL, MONOLX #### [facility] [address] [place], [place] [address] wFHC-Ped. Factor0.65NormalCTriHealth Bethesda North Hospital on above:Result Comment: eGFR (Estimated GFR) Units of measure: mL/min/1.73 meters squared eGFR in pediatric patients is calculated from the Bedside Arroyo equation based on a stable serumcreatinine and height. The creatinine assay has been calibrated to be traceable to IDMS. To calculate the patient's eGFR, multiply the given factor by the patient's height (centimeters). An eGFR <60 mL/min/1.73m2 for >3 months is consistent with chronic kidney disease. Refer to KDOQI guidelines for clinical interpretation.Performed By: #### CHRISTEL BRIGHT, MONOLX #### [facility] [address] [place], [place] [address] Naaojzr [Mass/Vol]89 mg/lDWtcbdm91-76KzypiyeklMckitrick Hospital Comment on above:Result Comment: Reference ranges for this patient's age group have not been established. These reference ranges reflect verified or established ranges for the adult population. Interpret these rangeswith caution using the clinical context and additional reference resources. The [place] [employer] (ADA) provides guidance for cutoff values for fasting glucose andrandom glucose. The ADA defines fasting as no [...] Standards of Medical Care in Diabetes 2016, [employer]. Diabetes Care. 2016.39(Suppl 1).Performed By: #### CBCSAULFCHRISTEL, MONOLX #### [facility] [address] [place], [place] [address] Fgujsepmy [Moles/Vol]4.4 mmol/LNormal3.7-5.1CTriHealth Bethesda North Hospital on above:Result Comment: (NOTE) Reference ranges for this patient's age group have not been established. These reference ranges reflect verified or established ranges for the adult population. Interpret these ranges with caution using the clinical context and additional reference resources.Performed By: #### CBCDIFCHRISTEL, MONOLX #### [facility] [place], [place] [address] Jrvkfi [Moles/Vol]136 mmol/SOnnwyg772-794JshpaavxwMckitrick Hospital Comment on above:Result Comment: (NOTE) Reference ranges for this patient's age group have not been established. These reference ranges reflect verified or established ranges for the adult population. Interpret these ranges with caution using the clinical context and additional reference resources.Performed By: #### POPEYEFCHRISTEL, MONOLX #### [facility] [address] [place], [place] [address] Ypxk nitrogen [Mass/Vol]8 mg/dLNormal5-18[facility] Comment on above:Performed By: #### CBCDIF, BMP, MONOLX #### [facility] [place], [place] [address] QUL and Differentialon 77-50-2809Tba Baso0.11 k/uLHigh<0.11CTriHealth Bethesda North Hospital on above:Performed By: #### CBCDIF, BMP, MONOLX #### [facility] [address] [place], [place] [address] Uun Lym4.27 K/uLHigh1.00-4.00[facility] on above:Performed By: #### CBCDIF, BMP, MONOLX #### [place] [address] [place] [address] Ghp Mono1.10 k/uLHigh<0.87[facility] on above:Performed By: #### CBCDIF, BMP, MONOLX #### [place] [address] Jdz Neut5.37 k/uLNormal1.45-7.50[facility] on above:Performed By: #### CBCDIF, BMP, MONOLX #### [place] [address] Umqxhtppc/100 WBC (Bld)1 %NormalAultman Hospital on above:Performed By: #### CBCDIF, BMP, MONOLX #### [place] [phone] CommentsSEE COMMENTNormalCTriHealth Bethesda North Hospital on above:Result Comment: Platelet estimate adequatePerformed By: #### CBCDIF, BMP, MONOLX #### [place] [address] Asygcblepws (Bld) [#/Vol]0.11 10*3/uLNormal<0.46[facility] on above:Performed By: #### CBCDIF, BMP, MONOLX #### [place] [address] Tmonuteiqhs/100 WBC (Bld)1 %NormalAultman Hospital on above:Performed By: #### CBCDIF, BMP, MONOLX #### [place] [phone] distribution width (RBC) [Ratio]13.4 %Lcmmcl70.5-15.0 [facility] on above:Performed By: #### CBCDIF, BMP, MONOLX #### [facility] [address] [place], [place] [address] Mruapysngb (Bld) [Volume fraction]39.8 %Etevzj35.0-46.0[facility] on above:Performed By: #### CBCDIF, BMP, MONOLX #### [place] [address] [place], [place] [address] Athulksfhp (Bld) [Mass/Vol]12.5 g/uRTbonwb25.5-15.5CTriHealth Bethesda North Hospital on above:Performed By: #### CBCDIF, BMP, MONOLX #### [place] [address] Dvxgbhlzzqw/100 WBC (Bld)39 %NormalAultman Hospital on above:Performed By: #### CBCDIF, BMP, MONOLX #### [address] [address] GXV25.4 fKQgpsch61.0-34.0[facility] on above: Performed By: #### CBCDIF, BMP, MONOLX #### [address] [address] APHW (RBC) [Mass/Vol]31.4 g/nSDagukx33.5-36.0[facility] on above:Performed By: #### CBCDIF, BMP, MONOLX #### [place] [address] [place], [place] [address] LSO (RBC) [Entitic vol]87.3 iZRynoaa89.0-100.0[facility] on above:Performed By: #### CBCDIF, BMP, MONOLX #### [place] [address] [place], [place] [address] Ivthuvflf/100 WBC (Bld)10 %NormalAultman Hospital on above:Performed By: #### CBCDIF, BMP, MONOLX #### [place] [address] [place] [address] Jnxlmecsrmp/100 WBC (Bld)49 %NormalAultman Hospital on above:Performed By: #### CBCDIF, BMP, MONOLX #### [place] [address] Daaeqnjt mean volume (Bld) [Entitic vol]10.3 fLNormal9.0-12.7 [facility] on above:Performed By: #### CBCDIF, BMP, MONOLX #### [place] [address] Krwpgyvjc (Bld) [#/Vol]218 10*3/xNHykozu034-905XvkhxlgutAultman Hospital on above:Performed By: #### CBCDIF, BMP, MONOLX #### [place] [address] JGD (Bld) [#/Vol]4.56 10*6/uLNormal3.90-5.20[facility] on above:Performed By: #### CBCDIF, BMP, MONOLX #### [place] [address] Xcs Cell MorphSEE COMMENTNormalCTriHealth Bethesda North Hospital on above:Result Comment: Slight Polychromasia Few OvalocytesPerformed By: #### CBCDIF, BMP, MONOLX #### [place] [address] JKF (Bld) [#/Vol]10.95 10*3/uLNormal3.70-11.00[facility] on above:Performed By: #### CBCDIF, BMP, MONOLX #### [address] [place], [place] [address] TSLCbi 96-21-5353QPRYScjxgn Visit (OTOLMN) PILI PARIKH ([id number]) 3 F Date Time Provider Department 10/09/21 12:00 PM ROLANDO WOOTEN OTOLMN During your visit today, we recorded the following information about you: Temperature Pulse Blood pressure 99.2 degrees 106/minute 134/81 Sopeary Floun 10/09/2021 12:19 PM Signed Tobacco Use: Not on file Was smoking cessation packet given? N/A - Patient is a non-smoker or quit >1 year ago. Was a referral initiated?N/A Patient is a non-smoker Rolando Wooten MD 11/13/2021 1:09 AM Signed [place] [facility] Consult This consult was requested by [...] The nasal passageways a (more content not included)...NormalMckitrick HospitalFungal Cultureon 78-92-0985Yarudi CultureSp. Request/Comment: - Specimen received in sterile container. Culture Result - No Fungus isolated after 28 daysNormalCKing's Daughters Medical Center OhioComment on above:Performed By: #### FCUL #### [facility] [address] [place] [address] Ztqk Slide Teston 69-03-0867Axsq Slide TestPositiveCritically abnormalNegativeMckitrick HospitalComment on above:Performed By: #### CBCDIF, BMP, MONOLX #### [facility] [address] [place] [address] Voovr Culture/Stainon 79-49-0260Wpiob Culture/StainSp. Request/Comment: - Swab Smear Result - Rare Gram positive cocci --> ABNORMAL ALERT Rare Polymorphonuclear leukocytes Culture Result - Rare Mixed oral jori For wound culture, tissue or aspirates are superior to swab specimens. If a swab must be used, eSwab is preferred. Critically abnormalMckitrick HospitalComharbor beach community hospital on above:Performed By: #### WCUL #### [facility] [address] [place] [address] Fxhysetdd Summaryon 66-32-3524Jslaggurb SummarySend Summary:Discharge Summary Providers:Provider RoleProvider Name? ReferringLoLydia, Radha Hope? PrimaryBuMelida franco? Jonas Vizcarra Note Recipients: Melida Daniel MD - [id number] [[id number]]Radha Unger MDZaraa, Solomon Gustav, MD Discharge: Summary:Admission Date: .23-Jun-2018 01:12:00Discharge Date: 77-Xfy-4587Xmxwiguoz Physician at Discharge: Jonas Mancusodmission Reason: Atenolol and tylenol overdose(1)Final Discharge Diagnoses: Other Specified Depressive DisorderProcedures: noneCondition at Discharge: SatisfactoryDisposition at Discharge: .HomeVital Signs: T MKQTHtU7Frxcg63.70065185/86Date/Time8/ 9:088/ 9:0806/28 9:0806/28 9:08Range(36.6C - 36.6C ) (45 [...] Further evaluation suggested adiagnosis of unspecified depression dis order and PTSD based her clinicalpresentation and significant [...] to Schedule in: 1x weekly - Location: [address] [place], [place] [address] Phone Number: phone: [phone] l fax: [phone] Follow-Up Appointment 02: Physician/Dept/Service: Griffin Lazcano Reason for Referral: Case Management Call to Schedule in: 1x weekly Location: [address] [place] [address] Phone Number: phone: [phone] l fax: [phone] Discharge Medications: Home MedicationQvar 80 mcg/inh inhalation [...] capsule - 1 cap(s) orally once a da ynorgestimate-ethinyl estradiol triphasic (0.18 mg-0.215 mg-0.250 mg)-25 mcgoral [...] - Pending: NoneRadiology Results - Pending: None Signature/Cosignature/Attestation:Digital Sales Planner Only - Attest to Medical Student/Acting Oven Un[employer] documentationAs ateaching institution, we recognize that medical students need to learn how toformulate documentation in the medical record. Although this document has beenreviewed and the student has been given formative feedback by me, clinicaldecisions should not be based on the information contained herein. Electronic Signatures:Femi Dasilva) (Signed 29-Jun-2018 15:50)Authored: Summary Content, Ongoing Care, Signature/Cosignature/AttestationCo-Signer: Send Summary, Summary Content, Ongoing Care,Signature/Cosignature/AttestationIdris-Cesar Rice (MED STUD) (Signed 29-Jun-2018 13:32)Authored: Send Summary, Summary Content, Ongoing Care,Signature/Cosignature/Attestation Last Updated: 14-Jul-2018 10:37 by Leidy Nugent ([facility] HospitalClinical Event Note-Telephoneon 51-41-3917Nhsecexq Event Note-TelephoneEvent:Topic: TelephoneDetails:Called and talked to both parents (mom and dad). Updated information aboutpatient clinical status. Also told that that patient is experiencing nightmaresand sleep issues. Mom and dad was given information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 thesetting of a severe asthma flare-up. Please call the office prior to starting;Therapy: 23Sep2014 to (Last Rx:24Mar2015) Requested for: [id number] Ordered Rx By: Amira Roach; Dispense: 0 Days ; #:21 Tablet; Refill: 1;For: Asthma; KAYLA = N; Sent To: [facility]; Last Updated By: Dali Mcintosh; 04/14/2018 10:03:48 AM ProAir HFA 108 (90 Base) MCG/ACT Inhalation Aerosol Solution; Inhale 2-4 puffs every4-6 hours as needed for cough, wheezing or shortness of breath and priorto exercise;Therapy: 23Sep2014 to (Last Rx:[id number]) Requested for: 24Mar2015 Ordered Rx By: Amira Roach; Dispense: 0 Days ; #:2 X 8.5 GM Inhaler; Refill: 6;For: Asthma; KAYLA = N; Verified Transmission to [place] [address]; Last Updated By: [employer]; 03/24/2015 10:46:52 AM Qvar 80 MCG/ACT Inhalation Aerosol Solution; INHALE TWO PUFFS BY MOUTH TWICEA DAY WITH A SPACER;Therapy: 23Sep2014 to (Last Rx:72Inh1230) Requested for: 68Vfd6934 Ordered Rx By: Amira Roach; Dispense: 0 Days ;#:8.7 EA; Refill: 5;For: Asthma, mild persistent; KAYLA = N; Verified Transmission to [place] [address] Lansoprazole 30 MG Oral Capsule Delayed Release; TAKE 1 CAPSULE EVERYMORNING DAILY;Therapy: 01Khv6803 to (Evaluate:93Jbb9202) Requested for: 27Mxv7429; LastRx:18Apr2018 Ordered Rx By: Dali Mcintosh; Dispense: 30 Days ; #:30 Capsule Delayed Release; Refill: 3;For: Gastro-esophageal reflux; KAYLA = N; Verified Transmission to [place] [address] Unspecified Medication; Vitamin B2-400 Oral Capsule1 capsule orally once a day;Therapy: (Recorded:91Grw5128) to Recorded Dispense: 0 Days ; #: Sufficient; Refill: 0;For: Health Maintenance; KAYLA = N; Record; Last Updated By: Mehran Martinez; 08/26/2017 8:43:21 AM Gabapentin 300 MG Oral Capsule; TAKE 1 CAPSULE 3 TIMES DAILY;Therapy: 28Sep2017 to (Eval uate:17Aug2018) Requested for: 18Feb2018; LastRx:18Feb2018 Ordered Rx By: Mere Simpson; Dispense: 30 Days ; #:90 Capsule; Refill: 5;For: Migraine; KAYLA = N; Verified Transmission to [place] [address]; Last Updated By: Loretta Camalize [employer]; 02/18/2018 9:49:39 AM Magnesium Oxide 400 MG Oral Tablet; 1 TABLET ORALLY ONCE A DAY;Therapy: (Recorded:29Usi7509) to Recorded Dispense: 0 Days ; #: Sufficient Tablet; Refill: 0;For: Migraine; KAYLA = N; Record; Last Updated By: Mehran Martinez; 08/26/2017 8:43:21 AM Amitriptyline HCl - 25 MG Oral Tablet; TAKE 1 TABLET AT BEDTIME;Therapy: 76Tda6810 to (Evaluate:75Mfn7443) Requested for: 03Qyi3914; LastRx:97Jeb0601 Ordered Rx By: Dali Mcintosh; Dispense: 30 Days ; #:30 Tablet; Refill: 6;For: Migraine, Vomiting; KAYLA = N; Verified Transmission to [place] [address] Vitamin D 1000 UNIT Oral Tablet; TAKE 1 TABLET DAILY;Therapy: 63Tff2411 to (Evaluate:78Gtl5587) Requested for: 37Llk5198; LastRx:73Dos6088 Ordered Rx By: Dali Mcintosh; Dispense: 30 Days ; #:30 Tablet; Refill: 3;For: Vitamin D deficiency; KAYLA = N; Verified Transmission to [place] [address] Cyproheptadine HCl - 4 MG Oral Tablet; TAKE 1 TABLET EVERY 8 HOURS DAILY Requested for: 02Sep2017; Last Rx:02Sep2017 Ordered Rx By: Jessica Coello; Dispense: 30 Days ; #:90 Tablet; Refill: 3;For: Vomiting; KAYLA = N; Rx auto-faxed to [place] [address]; Last Updated By: Juan Anotnio Burgos; 09/02/2017 3:51:52 PM Ondansetron HCl - 8 MG Oral Tablet; TAKE 1 TABLET 3 times daily PRN vomiting;Therapy: 16Dec2017 to (Evaluate:55Dwp1506) Requested for: 22Bdd5698; LastRx:18Apr2018 Ordered Rx By: Dali Mcintosh; Dispense: 30 Days ; #:90 Tablet; Refill: 3;For: Vomiting; KAYLA = N; Verified Transmission to [place] [address] Phenergan 25 MG SUPP; INSERT 1 SUPPOSITORY RECTALLY EVERY 12 HOURS ASNEEDEDFOR NAUSEA AND VOMITING;Therapy: 20Xxl0443 to (Last Rx:16Dec2017) Requested for: 16Dec2017 Ordered Rx By: Dali Mcintosh; Dispense: 0 Days ; #:12 Suppository; Refill: 1;For: Vomiting; KAYLA = N; Rx auto-faxed to [facility]; Last Updated By: [employer]; 12/16/2017 1:32:36 PM Promethazine HCl - 25 MG Oral Tablet; 1 tablet orally every 12 hours as needed fornausea/vomiting Requested for: 16Dec2017; Last Rx:16Dec2017 Ordered Rx By: Dali Mcintosh; Dispense: 0 Days ; #:60 Tablet; Refill: 0;For: Vomiting; KAYLA = N; Rx auto-faxed to [facility]; Last Updated By: [employer]; 12/16/2017 1:32:35 PM Atenolol 25 MG Oral Tablet; TAKE 1 TABLET DAILY;Therapy: (Recorded:20Oct2015) to Recorded Dispense: 0 Days ; #: Sufficient Tablet; Refill: 0; KAYLA = N; Record; Last Updated By: Amira Roach; 10/20/2015 10:38:08 AM Fludrocortisone Acetate 0.1 MG Oral Tablet; take one tablettwice a day;Therapy: (Recorded:20Oct2015) to Recorded Dispense: 0 Days ; #: Sufficient Tablet; Refill: 0; KAYLA = N; Record; Last Updated By: Amira Roach; 10/20/2015 10:38:08 AM Tri-Sprintec 0.18/0.215/0.25 MG-35 MCG Oral Tablet;Therapy: 23Mar2018 to Recorded Dispense: 28 Days ; #:28 TABS; Refill: 0; KAYLA = N; Record; Last Updated By: Dali Mcintosh; 04/14/2018 10:03:53 AM Vitals Vital Signs Recorded: 89Trh4410 10:94HTOmqmjgzm618Vfzlmncst11Plftjh3 ft 2.40 gsToposg879 lb 14.53 ozBMI Vfwynscltt27.18BSA Calculated1.94BMI Vzbbuezjsk28 %2-20 Stature Ikndqgcciy37 %2-20 Weight Nsnqsybcif87 % Physical ExamToday's exam finds a cooperative young woman in no acute distress. Constitutional - Well dressed, well nourished child, no apparent distress. Skin - scars. HEENT- Normocephalic/atraumatic, mucous membranes moist, no scleral icterus, conjunctiva pink, and nondysmorphic facies. Respiratory - Respirations regular. Abdomen - Soft, non-tender/non-distended. Extremities - Full range of motion. bitesnails. Neurologic - Mental Status: Alert and interactive. Oriented to person, place and time. Normal attention and concentration. Fluent spontaneous speech with no paraphrasic errors. Cranial Nerves:II: Visual arevalo full to confrontation bilaterally. Fundoscopic exam with sharp disc margins, no evidence of papilledema, normal retinal vessels bilaterally. III, IV, : Extraocular movements intact with no nystagmus. Pupils equal, round and reactive to light. V: Sensation intact in all three distributions of trigeminal nerve. VII: Face symmetric. VIII: Hearing intact to finger rub bilaterally.IX, X: Palate elevates symmetrically. XI: Trapezius and [...] Evaluation and Treatment Evaluate AND Treat Status:Hold For- Scheduling Requested for: 98Ezc0902 Ordered;For: Snoring; Ordered By: Mere Simpson Performed: [...] Patient: 30 minutes of which greater than 50percent was spent counseling and or coordinating care. End of Encounter MedsAeroChamber Z-Stat Plus/Large Miscellaneous; Please dispense large spacer withmouthpiece. Okay to substitute Optichamber with mouthpiece or Ashley Vortex withmouthpiece;Therapy: 23Sep2014 to (Last Rx:67Twc6635) Requested for: 24Mar2015 OrderedAfrin 12 Hour 0.05 % Nasal Solution; USE 1 SPRAY IN EACH NOSTRIL TWICE DAILY;Therapy: 22Dec2017 to (Evaluate:25Dec2017) Requested for: 22Dec2017; LastRx:22Dec2017 OrderedAlbuterol Sulfate (2.5 MG/3ML) 0.083% Inhalation Nebulization Solution; Inhale one vialevery 4-6 hours as neededfor cough, wheezing and shortness of breath;Therapy: 23Sep2014 to (Evaluate:20Oct2015) Requested for: 24Mar2015; LastRx:24Mar2015 OrderedAmitriptyline HCl - 25 MG Oral Tablet; TAKE 1 TABLET AT BEDTIME;Therapy: 61Aeb3477 to (Evaluate:01Kbz9915) Requested for: 18Apr2018; LastRx:47Gef8955 OrderedAtenolol 25 MG Oral Tablet; TAKE 1 TABLET DAILY;Therapy: (Recorded:20Oct2015) to RecordedCyproheptadine HCl - 4 MG Oral Tablet; TAKE 1 TABLET EVERY 8 HOURS DAILY Requested for: 02Sep2017; Last Rx:02Sep2017 OrderedFludrocortisone Acetate 0.1 MG Oral Tablet; take one tablet twice a day;Therapy: (Recorded:20Oct2015) to RecordedGabapentin 300 MG Oral Capsule; TAKE 1 CAPSULE 3 TIMES DAILY;Therapy: 75Qpo9427ip (Evaluate:91Wbp0522) Requested for: 18Feb2018; LastRx:18Feb2018 OrderedHyoscyamine Sulfate 0.125MG Oral Tablet Disintegrating; 2 tablets orally every 8 hours Requested for: 28Sep2017; Last Rx:28Sep2017 OrderedLansoprazole 30 MG Oral Capsule Delayed Release; TAKE 1 CAPSULE EVERYMORNING DAILY;Therapy: 14Apr2018 to (Evaluate:77Lkz7692) Requested for: 18Apr2018; LastRx:18Apr2018 OrderedMagnesium Oxide 400 MG Oral Tablet; 1 TABLET ORALLY ONCE A DAY;Therapy: (Recorded:81Wzy7657) to RecordedOndansetron HCl - 8 MG Oral Tablet; TAKE 1 TABLET 3 times daily PRN vomiting;Therapy: 16Dec2017 to (Evaluate:08Wqy0196) Requested for: 18Apr2018; LastRx:18Apr2018 OrderedPhenergan 25 MG SUPP; INSERT 1 SUPPOSITORY RECTALLY EVERY 12 HOURS ASNEEDED FOR NAUSEA AND VOMITING;Therapy: 03Nov2015 to (Last Rx:16Dec2017) Requested for: 16Dec2017 OrderedPredniSONE 20 MG Oral Tablet; Take 3 tablets once daily for 5-7 days. To be used in thesetting of a severe asthma flare-up. Please call the office prior to starting;Therapy: 23Sep2014 to (Last Rx:19Pro9945) Requested for: 14Apr2018 OrderedProAir HFA 108 (90 Base) MCG/ACT Inhalation Aerosol Solution; Inhale 2-4 puffs every4-6 hours as needed for cough, wheezingor shortness of breath and prior to exercise;Therapy: 23Sep2014 to (Last Rx:48Umw6930) Requested for: 24Mar2015 OrderedPromethazine HCl - 25 MG Oral Tablet; 1 tablet orally every 12 hours as needed fornausea/vomiting Requested for: 16Dec2017; Last Rx:16Dec2017 OrderedQvar 80 MCG/ACT Inhalation Aerosol Solution; INHALE TWO PUFFS BY MOUTH TWICEA DAY WITH A SPACER;Therapy: 23Sep2014 to (Last Rx:70Uph0303) Requested for: 27Apr2016 OrderedTri-Sprintec 0.18/0.215/0.25 MG-35 MCG Oral Tablet;Therapy: 23Mar2018 to RecordedUnspecified Medication; Vitamin B2-400 Oral Capsule1 capsule orally once a day;Therapy: (Recorded:71Pwv5396) to RecordedVitamin D 1000 UNIT Oral Tablet; TAKE 1 TABLET DAILY;Therapy: 14Apr2018 to (Evaluate:58Ezc8084) Requested for: 38Mpj9676; LastRx:31Dtt4016 Ordered Signatures Electronically signed by : Mere Simpson APRN-[facility] AND CLINICRadha; Jun 05 2018 10:46AM EST (Author)NormalUH TouchworksDischarge Summaryon [id number] SummarySend Summary:Discharge Summary Providers:Provider Role Provider Name? Referring Dali Mcintosh? Attending Adeola Colon? Primary Zac Daniel Recipients: Adeola Colon MD Baez-Socorro, MD Fredy Marley Natalie, MD - [phone] [[id number]]Dali Mcintosh MD - [phone] [Preferred]Discharge:Summary:Admission Date: .09-Aug-2017 21:44:00Discharge Date: 13-Gpg-5757Imfpqiitd Physician at Discharge: Adeola Colon NAdmission Reason: vomiting, hematemesisFinal Discharge Diagnoses: Functional abdominal painProcedures: null Aug 11, 2017Condition at Discharge: SatisfactoryDisposition at Discharge: .HomeVital Signs: T P R BP OeA7Znlho 36.6 70 18 126/84 98%Date/Time 08/24 8:58 08/24 8:58 08/24 8:58 08/24 8:58 08/24 8:58Range (36.4C - 36.9C ) (50 - 80 ) (16 - 20 ) (123 - 126 )/(73 - 84 ) (97%- 98% )Highest temp of 36.9 C was recorded at 08/23 21:47Hospital Course:12 yo female with h/o POTS, asthma and migraine admitted for further evaluationand management of chronic vom iting and recurrent hematemesis. The vomiting hasbeen going on for several months, but worse recently. She was admitted [facility] last month for the vomiting. She [...] for oral intake. She is given NGfeeds -continuous over night for supplementation. Recommend 600mL (2.5 [...] 02, 2017 at3:30 pm. Location: [place] [address] Izlrit-Up Appointment 02: Physician/Dept/Service: Neurology: Caty Simpson Call to Schedule in: 1st available Scheduled Date/Time: 31-Aug-2017 14:00 Location: [address] [place] [address] Kxdhdp-Up Appointment 03: Physician/Dept/Service: ENT (ear, nose, and throat) Reason for Referral: Follow-up after nasal cautery Call to Schedule in: 6 weeks Discharge Medications: Home Medication atenolol - orally Qvar 80 mcg/inh inhalation aerosol - 1 puff(s) inhaled 2 times a day fludocortisone - 0.1 gram(s) orally 2 timesa day fludrocortisone 0.1 mg oral tablet - [...] Results - Pending: NoneRadiology Results - Pending: NoneAttestation:Cosign/Attestation:.: Attestation: I saw and evaluated the patient. [...] patient (as noted in the above attestation) on: 7.: Electronic Signatures:Adeola Colon) (Signed 24-Aug-2017 23:59) Authored: Summary Content, Ongoing Care, Attestation Co-Signer: Send Summary, Summary Content, Ongoing Care, AttestationCarl Richards (Fellow)) (Signed 24-Aug-2017 20:58) Authored: Send Summary, Summary Content, Ongoing Care, AttestationLast Updated: 24-Aug-2017 23:59 by Adeola Colon ()[facility] HospitalPD ABDOMEN, SINGLE VIEWon [id number] ABDOMEN, SINGLE VIEWMRN: [id number] Name: PILI PARIKH STUDY:PD ABDOMEN, SINGLE VIEW; 08/21/2017 12:35 pm INDICATION:Signs/Symptoms: NG placement. COMPARISON:None. ORDERING CLINICIAN:Kelle BOATENG FINDINGS:Tip of NG overlies the gastric body. There is a nonobstructive bowel gas pattern. Visualized soft tissues and osseous structures are unremarkable. The lung bases are clear. IMPRESSION:Tip of NG overlies the gastric body.Electronically signed by: COREY JOHNS, [facility] County Medical CenterNR MRI BRAIN WOon [id number] MRI BRAIN WOMRN: [id number] Name: PILI PARIKH STUDY:NR MRI BRAIN WO; 08/13/2017 10:50 am INDICATION:Sign s/Symptoms: intractible vomiting and migraines with familyhistory of chiari malformation.. COMPARISON:None. ORDERING CLINICIAN:YANA HILLS TECHNIQUE:Axial T2, FLAIR, DWI and axial, sagittal and coronal T1 weightedimages of brain were acquired. FINDINGS:Some of the images a re degraded by motion artifacts. CSF Spaces: The [...] Chiari malformation. The study was interpreted at [facility].Electronically signed by: Benita HARDYSt. Mary's Medical Center Surgical Pathology Departmenton [id number] Surgical Pathology DepartmentNamPILI Murphy Pathologist: SANAZ MARIate of Procedure: 08/11/2017Date Received: 08/11/2017Date Reported 08/12/2017Submitting Physician: AIMEE ALEMAN MDLocation: 4R6 Copy To/Referring/Attending:DALI MCINTOSH M.D. Other External # FINAL DIAGNOSISA. ESOPHAGUS:--SQUAMOUS ESOPHAGEAL MUCOSA; NO PATHOLOGIC DIAGNOSISB. STOMACH:--FOCAL CHRONIC (INACTIVE) ANTRAL GASTRITIS; NO H. PYLORI IDENTIFIED--GASTRIC FUNDIC MUCOSA, NO PATHOLOGIC DIAGNOSISC. DUOD ENUM:--DUODENAL MUCOSA; NO PATHOLOGIC DIAGNOSIS Electronically Signed Out [...] specimen is submitted in toto in one cassette.MXWmxw/08/11/2017NoPoudre Valley HospitalComment on above:Performed By: #### T4FRE ####[facility], [place] [address]XDCLXJAbh 08-10-2017 Amylase enzyme act/vol19 U/JRkrfsv39 - 76[facility]3]Comment on above:Performed By: #### VTDOH ####[place] [id number], [place] [address]K-LUXXTPWS PROTEINon [id number] mass conc0.34 mg/dL NormalMon[facility] ([facility])[3]Comment on above:Result Comment: REF VALUE< 1.00Performed By: #### KACIH ####[place] [address], [place] [address]YDJ AND DIFFERENTIALon 08-10-2017% AUTOMATED IMMATURE GRAN0.3 %Normal0.0 - 1.0[facility])[3]Comment on above:Result Comment: Percent differential counts (%) should be interpreted in the context of the absolute cell counts (cells/L).Performed By: #### KACIH ####[place] [address] [place] [address]% DJYMIVMAWJ47.9 %Tyhynv81.0 - 69.0[facility])[3]Comment on above:Performed By: #### VTDOH ####[facility] [place], [place] [address]Pupwyhtam/100 WBC Auto (Bld)0.4 %Normal0.0 - 1.0[facility])[3]Comment on above: Performed By: #### MERCEDDOH ####[place] [address], [place] [address]Jaasjaeyz/100 WBC Auto (Bld)0.03 x10E9/LNormal0.00 - 0.10 [facility])[3]Comment on above:Performed By: #### VTDOH ####[facility], [place] [address]Psyqubcpahk Auto #/vol (Bld)0.29 10*3/uLNormal0.00 - 0.70[facility])[3]Comment on above:Performed By: #### VTDOH ####[facility], [place] [address]Cqfcopcxgtm/100 WBC Auto (Bld)4.2 %Normal0.0 - 5.0[facility])[3]Comment on above:Performed By: #### VTDOH ####[facility], [place] [address]Yrbxrgszfly distribution width Auto Ratio (RBC)14.1 %Ncfafb88.5 - 14.5[facility])[3]Comment on above:Performed By: #### VTDOH ####[facility], [place] [address]Aczgoffwrb Auto Volume Fraction (Bld) 35.4 %Low36.0 - 46.0[facility])[3]Comment on above:Performed By: #### VTDOH ####[facility] [place] [address] Hemoglobin mass conc (Bld)11.0 g/dLLow12.0 - 16.0[facility])[3] Comment on above:Performed By: #### MERCEDDOH ####[facility], [place] [address]Aiddpzlcyxm Auto #/vol (Bld)2.33 10*3/uLNormal1.80 - 4.80[facility])[3]Comment on above:Performed By: #### VTDOH ####[facility] [place] [address] Lymphocytes/100 WBC Auto (Bld)33.8 %Prwcom82.0 - 48.0[facility]3] Comment on above:Performed By: #### VTDOH ####[facility], [place] [address]COXU Auto mass conc (RBC)31.1 g/sPFukhye55.0 - 37.0[facility])[3]Comment on above:Performed By: #### VTDOH ####[facility], [place] [address]QFE Auto Entitic volume (RBC)80 sTVghbqh69 - 102[facility])[3]Comment on above: Performed By: #### VTDOH ####[facility], [place] [address]Prwobkabn Auto #/vol (Bld)0.58 10*3/uLNormal0.10 - 1.00[facility])[3]Comment on above:Performed By: #### KACIH ####[facility], [place] [address]Bsdvcwovy/100 WBC Auto (Bld)8.4 %Normal3.0 - 9.0[facility])[3]Comment on above: Performed By: #### MERCEDDOH ####[facility], [place] [address]Yukcsezwzgp Auto #/vol (Bld)3.65 10*3/uLNormal1.20 - 7.70 [facility])[3]Comment on above:Performed By: #### KACIH ####[place] [address], [place] [address]Efriuoqnv RBC/100 WBC Ratio (Bld)0.0 /100 WBCNormal0.0-0.0[facility])[3]Comment on above:Performed By: #### MERCEDDOH ####[facility], [place] [address]Ofkywjscd Auto #/vol (Bld)256 10*3/uAIkyawl632 - 400[facility])[3]Comment on above:Performed By: #### MERCEDDOH ####[facility], [place] [address]RBW Auto #/vol (Bld) 4.40 x10E12/LNormal4.10 - 5.20[facility])[3]Comment on above: Performed By: #### MERCEDDOH ####[facility], [place] [address]DPN Auto #/vol (Bld)6.9 10*3/uLNormal4.5 - 13.5[facility])[3]Comment on above:Performed By: #### VTDOH ####[facility], [place] [address]EVSNZH DISEASE SEROLOGY PANELon 02-10-3444EXGYIWM ABS, MFW5Shiutu8 - 14[facility]3]Comment on above:Result Comment: False negative Deamidated Gliadin Peptide Antibody, IgA results can occur in patients already adhering to a gluten-free diet or patients with IgA deficiency. Tissue Transglutaminase Antibody, IgA is the preferred test for screening patients with suspected Celiac Disease. Performed By: #### T4FRE ####[facility], [place] [address]UBVPNTA ABS, IGG<3Qpfqhd7 - 14[facility])[3] Comment on above:Result Comment: False negative Deamidated Gliadin Peptide Antibody, IgG results can occur in patients already adhering to a gluten-free diet. Tissue Transglutaminase Antibody, IgA is the preferred test for screening patients with suspected Celiac Disease.Performed By: #### T4FRE ####[facility], [place] [address]GAC AB,IGA<1Avxejs6 - 14[facility]3]Comment on above:Result Comment: Celiac disease is unlikely. False negative Tissue Transglutaminase Antibody, IgA results can occur in approximately 10% of patients with celiac disease, patients already adhering to agluten-free diet, or patients with IgA deficiency.Performed By: #### T4FRE ####[facility], [place] [address]SBV AB,IGG<1 Normal0 - 14[facility]3]Comment on above:Result Comment: False negative Tissue Transglutaminase Antibody, IgG results can occur in patients a lready adhering to a gluten-free diet. Tissue Transglutaminase Antibody, IgA is the preferred test for screening patients with suspected Celiac Disease. Performed By: #### T4FRE ####[facility], [place] [address]GDSKTKYQXIF SCREENon 29-66-9800uGJB Coag time (Bld)28 s Jxzvbz44 - 36[facility]3]Comment on above:Result Comment: THE APTT IS NO LONGER USED FOR MONITORING UNFRACTIONATED HEPARIN THERAPY. FOR MONITO RING HEPARIN THERAPY, USE THE HEPARIN ASSAY.Performed By: #### VTDOH ####[facility], [place] [address]KOQ Coag RelTime (PPP)1.1 {INR}Normal0.9 - 1.1[facility])[3]Comment on above: Performed By: #### VTDOH ####[facility], [place] [address]Dnfsctrdznh time (PT) Coag time (PPP)12.1 sNormal9.8 - 12.7[facility])[3]Comment on above:Performed By: #### VTDOH ####[facility], [place] [address]PRXFBLB FUNCTION PANELon 49-94-6532FHR enzyme act/hlk071 U/DLqxjxj70 - 239[facility])[3]Comment on above:Performed By: #### VTDOH ####[facility], [place] [address]NFN enzyme act/vol39 U/LHigh3 - 28[facility])[3]Comment on above:Result Comment: Patients treated with Sulfasalazine may generate falsely decreased results for ALT.Performed By: #### KACIH ####[facility], [place] [address]BZH enzyme act/vol27 U/LHigh9 - 24[facility])[3]Comment on above: Performed By: #### VTDOH ####[facility], [place] [address]Hbaemtfbd mass conc0.4 mg/dLNormal0.0 - 0.9[facility])[3]Comment on above:Performed By: #### VTDOH ####[facility], [place] [address]Svkwaukoy.direct mass conc0.1 mg/dL Normal0.0 - 0.3[facility])[3]Comment on above:Performed By: #### VTDOH ####[facility], [place] [address]Jhdblcl mass conc5.7 g/dLLow6.2 - 7.7[facility])[3]Comment on above: Performed By: #### VTDOH ####[facility], [place] [address]IGIHVKky 22-27-6151Mrlrng enzyme act/vol16 U/LNormal9 - 82[facility]3]Comment on above:Result Comment: Venipuncture immediately after or during the administration of Metamizole may lead to falsely low results. Testing should be performed immediately prior to Metamizole dosing.Performed By: #### VTDOH ####[facility], [place] [address]KYLAK FUNCTION PANELon 58-67-3693Pxyaees mass conc3.8 g/dLNormal3.4 - 5.0[facility])[3]Comment on above:Performed By: #### T4FRE ####[facility] [place] [address] Performed By: #### VTDOH ####[facility], [place] [address]Rbqfe gap 3 molar conc13 mmol/GOuxpla13 - 30[facility]3]Comment on above:Performed By: #### T4FRE ####[facility] [address], [place] [address]Kkufuux mass conc9.2 mg/dLNormal8.5 - 10.7[facility])[3]Comment on above:Performed By: #### T4FRE ####[facility], [place] [address]Ptcrxmvi molar conc 106 mmol/GCliurp52 - 107[facility]3]Comment on above:Performed By: #### T4FRE ####[facility], [place] [address]Nirtosqqlv mass conc0.56 mg/dLNormal0.50 - 1.00[facility]3] Comment on above:Performed By: #### T4FRE ####[facility], [place] [address]Ernuepq mass hwgr718 mg/zYIzwj25 - 99[facility]3]Comment on above:Performed By: #### T4FRE ####[facility], [place] [address]JST0 molar conc (Bld)26 mmol/LNormal 18 - 27[facility]3]Comment on above:Performed By: #### T4FRE ####[facility], [place] [address]Cejkxqziw mass conc4.3 mg/dLNormal3.0 - 5.4[facility])[3]Comment on above: Result Comment: The performance characteristics of phosphorus testing in heparinized plasma have been validated by the individual laboratory site where testing is performed. Testing on heparinizedplasma is not approved by the FDA; however, such approval is not necessary.Performed By: #### T4FRE ####[facility], [place] [address]Cxumbwdxt molar conc 3.9 mmol/LNormal3.5 - 5.3[facility])[3]Comment on above:Performed By: #### T4FRE ####[facility], [place] [address]Kqvxrl molar fwmw926 mmol/HMldcnm130 - 145[facility]3] Comment on above:Performed By: #### T4FRE ####[facility], [place] [address]Ydyy nitrogen mass conc11 mg/dLNormal6 - 23[facility]3]Comment on above:Performed By: #### T4FRE ####[facility], [place] [address]TPLTSTCnb 08-09-2017 Amylase enzyme act/vol22 U/ODddnom80 - 76[facility]3]Comment on above:Performed By: #### AMIRA ####[facility], [place] [address]I-AYOKSMEJ PROTEINon 46-01-9173GWU mass conc0.36 mg/dL Normal[facility] ([facility])[3]Comment on above:Result Comment: REF VALUE< 1.00Performed By: #### CRP ####[place] [id number], [place] [address]KIL AND DIFFERENTIALon 08-09-2017% AUTOMATED IMMATURE GRAN0.3 %Normal0.0 - 1.0[facility])[3]Comment on above:Result Comment: Percent differential counts (%) should be interpreted in the context of the absolute cell counts (cells/L).Performed By: #### CBCDF ####[place] [address], [place] [address]% DZDNHFMFJV71.6 %Kkebst75.0 - 69.0[facility])[3]Comment on above:Performed By: #### CBCDF ####[place] [id number] [place], [place] [address]Aswvlhfdy/100 WBC Auto (Bld)0.04 x10E9/LNormal0.00 - 0.10[facility])[3]Comment on above:Performed By: #### CBCDF ####[place] [address] [place] [place], [place] [address]Smbxhgswl/100 WBC Auto (Bld)0.5 %Normal0.0 - 1.0[facility])[3]Comment on above:Performed By: #### CBCDF ####[place] [address] [place], [place] [address]Oeothxsgpzr Auto #/vol (Bld)0.28 10*3/uLNormal0.00 - 0.70[facility])[3]Comment on above:Performed By: #### CBCDF ####[place] [address] [place], [place] [address]Zkutleaayar/100 WBC Auto (Bld)3.6 %Normal0.0 - 5.0[facility])[3]Comment on above:Performed By: #### CBCDF ####[place] [address] [place] [place], [place] [address]Rwyjofnpkjo distribution width Auto Ratio (RBC)14.4 %Ugszcn01.5 - 14.5[facility])[3]Comment on above:Performed By: #### CBCDF ####[place] [address] [place], [place] [address]Hkxakkhrxi Auto Volume Fraction (Bld) 37.7 %Almiuh84.0 - 46.0[facility])[3]Comment on above:Performed By: #### CBCDF ####[facility] [place] [address] Hemoglobin mass conc (Bld)11.5 g/dLLow12.0 - 16.0[facility])[3] Comment on above:Performed By: #### CBCDF ####[facility], [place] [address]Qzfgpctlckn Auto #/vol (Bld)2.20 10*3/uLNormal1.80 - 4.80[facility])[3]Comment on above:Performed By: #### CBCDF ####[facility] [place] [address] Lymphocytes/100 WBC Auto (Bld)28.2 %Lkvysh06.0 - 48.0[facility]3] Comment on above:Performed By: #### CBCDF ####[facility], [place] [address]ZUSF Auto mass conc (RBC)30.5 g/dLLow31.0 - 37.0[facility])[3]Comment on above:Performed By: #### CBCDF ####[facility], [place] [address]ZUW Auto Entitic volume (RBC)82 iHMpdcqf70 - 102[facility]3]Comment on above: Performed By: #### CBCDF ####[facility], [place] [address]Nruimdfxg Auto #/vol (Bld)0.53 10*3/uLNormal0.10 - 1.00[facility])[3]Comment on above:Performed By: #### CBCDF ####[facility], [place] [address]Jtwptrnfz/100 WBC Auto (Bld)6.8 %Normal3.0 - 9.0[facility])[3]Comment on above: Performed By: #### CBCDF ####[facility], [place] [address]Cveevvsphbe Auto #/vol (Bld)4.73 10*3/uLNormal1.20 - 7.70 [facility])[3]Comment on above:Performed By: #### CBCDF ####[facility], [place] [address]Rgncydaoj RBC/100 WBC Ratio (Bld)0.0 /100 WBCNormal0.0-0.0[facility])[3]Comment on above:Performed By: #### CBCDF ####[place] [id number], [place] [address]Motsxhkpx Auto #/vol (Bld)290 10*3/uPHvjojg089 - 400[facility]3]Comment on above:Performed By: #### CBCDF ####[place] [id number], [place] [address]WFW Auto #/vol (Bld) 4.62 x10E12/LNormal4.10 - 5.20[facility])[3]Comment on above: Performed By: #### CBCDF ####[facility], [place] [address]QXN Auto #/vol (Bld)7.8 10*3/uLNormal4.5 - 13.5[facility])[3]Comment on above:Performed By: #### CBCDF ####[place] [id number], [place] [address]YEXNQHJKLUZ SCREENon 36-31-5072yAVC Coag time (Bld)29 xTerzro55 - 36[facility]3] Comment on above:Result Comment: THE APTT IS NO LONGER USED FOR MONITORING UNFRACTIONATED HEPARIN THERAPY. FOR MONITORING HEPARIN THERAPY, USE THE HEPARIN ASSAY.Performed By: #### VTDOH ####[facility], [place] [address]ZPT Coag RelTime (PPP)1.2 {INR}High0.9 - 1.1[facility])[3]Comment on above:Performed By: #### VTDOH ####[facility], [place] [address]Kfetjluizey time (PT) Coag time (PPP) 12.9 sHigh9.8 - 12.7[facility])[3]Comment on above:Performed By: #### VTDOH ####[facility] [place] [address] ESR-WESTERGRENon 32-83-4589SAJ-WESTERGREN8 mm/hNormal0 - 13[facility])[3]Comment on above:Performed By: #### VTDOH ####[facility], [place] [address]MSRnp 62-82-9715DQY91 U/LNormal5 - 20 [facility])[3]Comment on above:Performed By: #### GGT ####[facility], [place] [address]YGEVQUJGJL A1Con 94-67-4160Yfslneuqgu A1c/Hemoglobin.total mass fraction (Bld)5.6 %Normal[facility])[3]Comment on above:Result Comment: Diagnosis of Diabetes- Adults Non-Diabetic: < or = 5.6% Increased risk for developing diabetes: 5.7- 6.4% Diagnostic of diabetes: > or = 6.5%. Monitoring of Diabetes Age (y) Therap eutic Goal (%) Adults: >18 <7.0 Pediatrics: 13-18 <7.5 7-12 <8.0 0- 6 7.5-8.5 [employer]. Diabetes Care 33(S1), Nov 2009.Performed By: #### VTDOH ####[facility] [place] [address] HEPATIC FUNCTION PANELon 03-39-9392UOU enzyme act/kje694 U/ZKhjiwb04 - 239[facility])[3]Comment on above:Performed By: #### HEPFP ####[facility], [place] [address]MQS enzyme act/vol41 U/LHigh3 - 28[facility])[3]Comment on above:Result Comment: Patients treated with Sulfasalazine may generate falsely decreased results for ALT.Performed By: #### HEPFP ####[facility], [place] [address]JVU enzyme act/vol25 U/LHigh9 - 24[facility])[3]Comment on above:Performed By: #### HEPFP ####[facility], [place] [address]Opcclnicc mass conc0.3 mg/dLNormal0.0 - 0.9[facility])[3]Comment on above:Performed By: #### HEPFP ####[facility], [place] [address]Rsaqiddwi.direct mass conc0.1 mg/dLNormal0.0 - 0.3[facility])[3]Comment on above: Performed By: #### HEPFP ####[facility], [place] [address]Tklmhjr mass conc6.7 g/dLNormal6.2 - 7.7[facility])[3]Comment on above:Performed By: #### HEPFP ####[facility], [place] [address]QHZR + TIBCon 08-09-2017% SATURATION 13 %Low25 - 45[facility])[3]Comment on above:Performed By: #### IRONT ####[facility], [place] [address]Nlke mass conc53 ug/jPUtlyio86 - 138[facility])[3]Comment on above: Performed By: #### IRONT ####[facility], [place] [address]GXGT351 ug/fYPhswkw881 - 445[facility])[3] Comment on above:Performed By: #### IRONT ####[facility], [place] [address]SAYYHUkn 71-53-0409Pnhtoj enzyme act/vol17 U/L Normal9 - 82[facility]3]Comment on above:Result Comment: Venipuncture immediately after or during the administration of Metamizole may lead to falsely low results. Testing should be performed immediately prior to Metamizole dosing.Performed By: #### LIPAS ####[facility], [place] [address]TTEVP FUNCTION PANELon 65-53-5995Leaaqji mass conc 4.3 g/dLNormal3.4 - 5.0[facility])[3]Comment on above:Performed By: #### VTDOH ####[facility] [place] [address] Performed By: #### HEPFP ####[facility], [place] [address]Xhmdj gap 3 molar conc13 mmol/CTvlexn98 - 30[facility])[3]Comment on above:Performed By: #### VTDOH ####[facility], [place] [address]Fzdoxho mass conc9.5 mg/dLNormal8.5 - 10.7[facility])[3]Comment on above:Performed By: #### VTDOH ####[facility], [place] [address]Elmiamwd molar conc 105 mmol/WUwqfhz97 - 107[facility])[3]Comment on above:Performed By: #### VTDOH ####[facility], [place] [address]Nkzwpnuxjp mass conc0.50 mg/dLNormal0.50 - 1.00[facility])[3] Comment on above:Performed By: #### VTDOH ####[facility], [place] [address]Olxeuik mass conc83 mg/nDVvlebv30 - 99[facility])[3]Comment on above:Performed By: #### VTDOH ####[facility], [place] [address]CHP3 molar conc (Bld)27 mmol/L Cybhud25 - 27[facility])[3]Comment on above:Performed By: #### VTDOH ####[facility] [place] [address] Phosphate mass conc4.1 mg/dLNormal3.0 - 5.4[facility])[3]Comment on above:Result Comment: The performance characteristics of phosphorus testing in heparinized plasma have been validated by the individual laboratory site where testing is performed. Testing on heparinizedplasma is not approved by the FDA; however, such approval is not necessary.Performed By: #### VTDOH ####[facility], [place] [address]Iksmywumw molar conc 4.1 mmol/LNormal3.5 - 5.3[facility])[3]Comment on above:Performed By: #### VTDOH ####[facility] [facility], [place] [address]Dkwkgn molar apta248 mmol/OXjwwom979 - 145[facility])[3] Comment on above:Performed By: #### VTDOH ####[place] [address], [place] [address]Dmnr nitrogen mass conc11 mg/dLNormal6 - 23[facility])[3]Comment on above:Performed By: #### VTDOH ####[place] [address] [facility], [place] [address]PKNNAUZGH,FREEon 53-94-4654KEZOOWIVN,FREE1.08 ng/dLNormal0.78 - 1.48[facility])[3] Comment on above:Result Comment: Thyroxine Free testing is performed using different testing methodology at [facility] than at other [facility]. Direct result comparisons should only be made within the same method.. Patients receiving more than 5 mg/day of biotin may have interference in test results. A sample should be taken no sooner than eight hours after previous dose. Contact [phone] additional information.Performed By: #### T4FRE ####[place] [address] [place], [place] [address]WTLku 47-52-7936Xlnnntaelbz Qn1.71 m[IU]/LNormal0.44 - 3.98[facility]3] Comment on above:Result Comment: TSH testing is performed using different testing methodology at [facility] than at other [facility]. Direct result comparisons should only be made within the same method.. Patients receiving more than 5 mg/day of biotin may have interference in test results. A sample should be taken no sooner than eight hours after previous dose. Contact [phone] for additional information.Performed By: #### TSH2 ####[facility], [place] [address]OMILBJV D, 25-HYDROXYon 93-02-5468PNSPCGA D, 25-SNTLPUI69 ng/mLAbnoPoudre Valley Hospital Comment on above:Result Comment: .DEFICIENCY: < 20 NG/MLINSUFFICIENCY: 20-29 NG/MLOPTIMUM LEVEL: 30-80 NG/MLPOSSIBLE TOXICITY: > 80 NG/MLTHIS ASSAY ACCURATELY QUANTIFIES THE SUM OFVITAMIN D3, 25-HYDROXY AND VITD2,25-HYDROXY. Performed By: #### VTDOH ####[facility] [place] [address] Vital Signs Date TimeVital SignValuePerforming JtykdjzqeZnnftxdk74-60-9491 20:30-0500Heart rate51 /minSaint [facility] Centerit [facility]02-19-2025 20:30-0500 Respiratory rate12 /min[facility]-19-2025 20:30-6152AoB1% (BldA) [Mass fraction]98 %[facility]02-19-2025 19:30-0500Diastolic blood rjdezqjf958 mm[Hg][facility]02-19-2025 19:30-0500Heart rate48 /min[facility] [place]02-19-2025 19:30-0500Mean blood enhbjalv368 mm[Hg][facility]02-19-2025 19:30-0500 Respiratory rate13 /min[facility]02-19-2025 19:30-1754ZmH3% (BldA) [Mass fraction]98 %[facility]02-19-2025 19:30-0500Systolic blood leyjhhzt122 mm[Hg][facility]02-19-2025 17:53-0500Body bnvpmpxqvky44.14 [degF][facility]02-19-2025 17:53-0500Diastolic blood rdtiksmo23 mm[Hg][facility]02-19-2025 17:53-0500Heart rate64 /min[facility]02-19-2025 17:53-0500Respiratory rate20 /min[facility] 01-16-2025 17:53-3474SlQ1% (BldA) [Mass fraction]100 %[facility]02-19-2025 17:53-0500Systolic blood mm[Hg][facility]12-02-2024 00:01-0500Diastolic blood suscrwiv76 mm[Hg]Services [employer] Work Phone: [phone] [place], [place] [address]12-02-2024 00:01-0500 Heart rate72 /[facility] hospitalAmanda Huff DBA [employer] Work Phone: [phone] [place], [place] [address]12-02-2024 00:01-0500 Respiratory rate16 /Pri[employer] Work Phone: [facility]12-02-2024 00:01-0500 SaO2% (BldA) [Mass fraction]99 %[employer] Work Phone: [facility]12-02-2024 00:01-0500 Systolic blood mm[Hg][facility] [employer] Work Phone: [phone]-[facility]12-01-2024 18:07-0500 Body .48 cmSLoopback Work Phone: [phone]-[facility]12-01-2024 18:07-0500 Body gduwydlhbbu99.6 [degF]Services [employer] Work Phone: [phone])273-[address] [place], [place] [address]12-01-2024 18:07-0500 Body ppjhev49.85 kgSerwar[facility] hospital [employer] Work Phone: [phone]09-06-2024 23:10-0400 Diastolic blood mm[Hg]Services [facility] [employer] Work Phone: [phone]09-06-2024 23:10-0400 Heart rate95 /[facility] [employer] Work Phone: [phone] [place], [place] 9205609-06-2024 23:10-0400 Respiratory rate18 /[facility] [employer] Work Phone: [phone] [place], [place] 9205609-06-2024 23:10-0400 SaO2% (BldA) [Mass fraction]99 %Services [employer] Work Phone: [phone] [place], [place] 9205609-06-2024 23:10-0400 Systolic blood unywnyyu130 mm[Hg]Services [facility] [employer] Work Phone: [phone]09-06-2024 20:35-0400 Body akanba874.48 cmSWexner [facility] Center Work Phone: [phone] [place], [place] 9205609-06-2024 20:35-0400 Body ywbuocpcfzj09.1 [degF]Services [facility] [employer] Work Phone: [phone]09-06-2024 20:35-0400 Body .71 kgSerwarren state hospital [employer] Work Phone: [phone])737-[address] [place], [place] 9855809-02-2024 22:55-0400 Diastolic blood oescfyck21 mm[Hg]Cresencio Abel [facility]09-02-2024 22:55-0400Heart rate50 /minCresencio Abel [facility]09-02-2024 22:55-0400Mean blood qcrahhmn55 mm[Hg]Cresencio Abel [facility]09-02-2024 22:55-0400 Respiratory rate16 /minTim Colten [facility]09-02-2024 22:55-5837DnK9% (BldA) [Mass fraction]98 %Cresencio Abel [address] [place], [place] 7107809-02-2024 22:55-0400 Systolic blood tjlnnoxz985 mm[Hg]Cresencio Abel [address]09-02-2024 19:28-0400Body fdzahtmmsuc24.06 [degF]Cresencio Abel [address]09-02-2024 19:28-0400 Diastolic blood coatufpl66 mm[Hg]Cresencio Abel [address]09-02-2024 19:28-0400Heart rate55 /minTim Colten [address] [place], [place] 7107809-02-2024 19:28-0400 Respiratory rate16 /minTim Colten [facility]09-02-2024 19:28-4676UsO5% (BldA) [Mass fraction]97 %Cresencio Abel [facility]09-02-2024 19:28-0400 Systolic blood koccuukq634 mm[Hg]Cresencio Abel [address] [place], [place] 7107804-22-2024 00:10-0400 Diastolic blood mm[Hg]Services [facility] Work Phone: [facility]04-22-2024 00:10-0400 Heart izqf038 /[facility] Work Phone: [facility]04-22-2024 00:10-0400 Respiratory rate18 /[facility] Work Phone: [facility]04-22-2024 00:10-0400 SaO2% (BldA) [Mass fraction]100 %Services [employer] Work Phone: [facility]04-22-2024 00:10-0400 Systolic blood mm[Hg]Services [facility] [employer] Work Phone: [facility]04-21-2024 22:03-0400 Body xnrkvu644.02 cmServices [facility] Work Phone: [facility]04-21-2024 22:03-0400 Body lscdctlzxsa47.3 [degF]Services [facility] [employer] Work Phone: [facility]04-21-2024 22:03-0400 Body ddduep37.2 kgServices [facility] Work Phone: [facility]04-18-2024 13:43-0400 Diastolic blood mm[Hg][facility] 03-15-2024 13:43-0400Heart rate51 /min[facility] [place]04-18-2024 13:43-0400Mean blood xdmjcycy413 mm[Hg][facility]04-18-2024 13:43-0400Respiratory rate16 /[facility]04-18-2024 13:43-7600VxH4% (BldA) [Mass fraction] 100 %[facility]04-18-2024 13:43-0400Systolic blood mm[Hg][facility]04-18-2024 12:01-0400Diastolic blood ugzemhfq94 mm[Hg][facility]04-18-2024 12:01-0400Heart rate52 /min[facility] [place]04-18-2024 12:01-0400Mean blood wqovedac508 mm[Hg][facility]04-18-2024 12:01-8756YeU9% (BldA) [Mass fraction]100 %[facility]04-18-2024 12:01-0400Systolic blood pressure 148 mm[Hg][facility]04-18-2024 10:35-0400Body diibmukocbn51.52 [degF][facility]04-18-2024 10:35-0400Diastolic blood boisexea64 mm[Hg][facility]04-18-2024 10:35-0400Heart rate60 /min[facility] [place]04-18-2024 10:35-0400Respiratory rate18 /min[facility] [place]04-18-2024 10:35-5594IyO5% (BldA) [Mass fraction]98 %[facility]04-18-2024 10:35-0400Systolic blood pressure 143 mm[Hg][facility]04-16-2024 22:00-0400 Diastolic blood jyenuvsq841 mm[Hg]Femi Roman [address] [place], [place] 7107804-16-2024 22:00-0400Heart rate53 /minFemi Roman [address] [place], [place] 7107804-16-2024 22:00-0400Mean blood wvvjfiin869 mm[Hg]Femi Roman [address] [place], [place] 7107804-16-2024 22:00-3787FnS8% (BldA) [Mass fraction]100 %Femi Roman [address] [place], [place] 7107804-16-2024 22:00-0400 Systolic blood mysntjdg292 mm[Hg]Femi Jessie [address] [place], [place] 7107804-16-2024 21:00-0400 Diastolic blood mm[Hg]Femi Jessie [address] [place], [place] 7107804-16-2024 21:00-0400Heart rate93 /minFemi Roman [address] [place], [place] 7107804-16-2024 21:00-0400Mean blood evzjxkbn431 mm[Hg]Femi Roman [address] [place], [place] 7107804-16-2024 21:00-0400 Respiratory rate21 /minJomarylu Roman [address] [place], [place] 7107804-16-2024 21:00-6466RkG1% (BldA) [Mass fraction]98 %Femi Roman [address] [place], [place] 7107804-16-2024 21:00-0400 Systolic blood syizfiem565 mm[Hg]Femi Roman [address] [place], [place] 7107804-16-2024 20:00-0400 Diastolic blood ixnrjtpw436 mm[Hg]Femi Roman [address] [place], [place] 7107804-16-2024 20:00-0400Heart rate50 /Tiffany Roman [address] [place], [place] 7107804-16-2024 20:00-0400Mean blood mm[Hg]Femi Roman [address] [place], [place] 7107804-16-2024 20:00-0400 Systolic blood arodfvtp860 mm[Hg]Femi Roman [address] [place], [place] 7107804-16-2024 19:38-0400 Respiratory rate14 /minFemi Roman [address] [place], [place] 7107804-16-2024 18:36-0400 Respiratory rate18 /minJomarylu Jessie [address] [place], [place] 7107804-16-2024 17:51-0400Body lbecptoiklr72.24 [degF]Femi Roman [address] [place], [place] 7107804-16-2024 17:36-0400Body rgwoyvdpvay13.24 [degF]Femi Roman [facility]04-16-2024 17:36-0400Heart rate61 /Tiffany Roman [facility]04-16-2024 17:36-0400 Respiratory rate18 /Tiffany Roman [facility]09-03-2023 18:09-0400Body xbraor897.48 cmSLoopback Work Phone: [facility]09-03-2023 18:09-0400 Body fujfykhruxi42.6 [degF]Services [employer] Work Phone: [phone]-[facility]09-03-2023 18:09-0400 Body [facility]Ser[facility] [employer] Work Phone: [phone]-[facility]09-03-2023 18:09-0400 Diastolic blood mm[Hg]Services [employer] Work Phone: [phone]-[facility]09-03-2023 18:09-0400 Heart rate87 /[employer] Work Phone: [phone]-[facility]09-03-2023 18:09-0400 Respiratory rate18 /[employer] Work Phone: [phone])586-[facility]09-03-2023 18:09-0400 SaO2% (BldA) [Mass fraction]98 %Services [employer] Work Phone: [phone]-[facility]09-03-2023 18:09-0400 Systolic blood mm[Hg]Services [employer] Work Phone: 1([phone])300-[facility]06-28-2023 13:11-0400 Diastolic blood wubfngln90 mm[Hg]Services [employer] Work Phone: [facility]06-28-2023 13:11-0400 Heart rate60 /[employer] Work Phone: [phone]-[facility]06-28-2023 13:11-0400 Respiratory rate16 /[facility] [employer] Phone: [phone]-[facility]06-28-2023 13:11-0400 SaO2% (BldA) [Mass fraction]97 %Services [employer] Phone: [facility]06-28-2023 13:11-0400 Systolic blood zlwtroqd430 mm[Hg]Services [employer] Phone: [phone]-[facility]06-28-2023 11:56-0400 Inhaled oxygen flow rate6 L/[facility] [employer] Phone: [phone]-[facility]06-28-2023 11:54-0400 Body hzwixsfsuag25.2 [degF]Services [employer] Phone: [phone]-[facility] HealthcareOhio[facility]06-28-2023 09:39-0400 Body jknvag330.[address] [facility] [employer] Phone: [phone]-[facility]06-28-2023 09:39-0400 Body mass index (BMI) [Percentile] Per age and sex96.6 %Services [facility] [employer] Phone: [phone]-[facility]06-28-2023 09:39-0400 Body mass index (BMI) [Ratio]33.6 kg/u5Sykdqjpq [employer] Phone: [facility]06-28-2023 09:39-0400 Body zuhqud03.18 [facility]Serwar[facility] hospital [employer] Phone: [facility]06-26-2023 08:00-0400 Body .48 cmThomas Olexa Other [employer] Other 06-26-2023 08:00-0400Body mass index (BMI) [Ratio] 34.75 kg/z7Yyhxoi Olex[employer] Other [employer] Other 06-26-2023 08:00-0400Body fqwuvt99.18 kgThomas Olexa Other [employer] Other 02-10-2023 14:08-0500Body .48 cmServices [employer] Work Phone: [phone]-[facility]02-10-2023 12:34-0500 Body gujgykznjrp61.1 [degF]Services [facility] [employer] Work Phone: [phone] [place], [place] 9234202-10-2023 12:34-0500 Diastolic blood obvycata36 mm[Hg]Services [facility] [employer] Work Phone: [phone])60353 [address]02-10-2023 12:34-0500 Heart rate75 /[facility] [employer] Work Phone: [phone] [place], [place] 9234202-10-2023 12:34-0500 SaO2% (BldA) [Mass fraction]100 %Services [facility] [employer] Work Phone: 1([phone])246-[address] [place], [place] 9234202-10-2023 12:34-0500 Systolic blood qckgyxot955 mm[Hg]Services [facility] [employer] Work Phone: 1(328)936-[address] [place], [place] 9234202-10-2023 11:57-0500 Respiratory rate18 /[facility] [employer] Work Phone: 1(277)009-[address] [place], [place] 9234202-10-2023 06:00-0500 Body maqdst48.2 kgSercommunity medical center-clovises [facility] [employer] Work Phone: 1(771)096-[address] [place], [place] 9234202-09-2023 18:29-0500 Diastolic blood jaqnlovc31 mm[Hg]Services [facility] [employer] Work Phone: 1(115)109-[address] [place], [place] 9234202-09-2023 18:29-0500 Heart rate64 /[facility] [employer] Work Phone: 1(759)788-[address] [place], [place] 9234202-09-2023 18:29-0500 Respiratory rate16 /[facility] HospitalEXTRABANCA [facility] [employer] Work Phone: 1(255)291-[address] [place], [place] 9234202-09-2023 18:29-0500 SaO2% (BldA) [Mass fraction]98 %Services [employer] Work Phone: 1(073)14553 [address]02-09-2023 18:29-0500 Systolic blood jzbosxvt614 mm[Hg]Services [facility] [employer] Work Phone: 1(896)[address] [place], [place] 2843302-09-2023 11:12-0500 Body .48 [facility] Phone: 1(996)[address] [place], [place] 2843302-09-2023 11:12-0500 Body uyqjeelsabl06 [degF]Services [facility] [employer] Work Phone: 1(714)88[address]02-09-2023 11:12-0500 Body pdpdea00.11 kgSerSentara [facility] [employer] Work Phone: 1(674)[address] [place], [place] 2843302-05-2023 04:00-0500 Heart rate62 /[employer] Work Phone: 1(960)[address] [place], [place] 2843302-05-2023 04:00-0500 Respiratory rate18 /[employer] Work Phone: 1(293)[address] [place], [place] 2843302-05-2023 04:00-0500 SaO2% (BldA) [Mass fraction]100 %Services [facility] [employer] Work Phone: 1(043)[address] [place], [place] 2843302-05-2023 02:37-0500 Diastolic blood ugcdsfkv36 mm[Hg]Services [facility] [employer] Work Phone: 1(068)[address] [place], [place] 2843302-05-2023 02:37-0500 Systolic blood yswvgfis293 mm[Hg]Services [facility] [employer] Work Phone: 1(222)[address] [place], [place] 2843302-05-2023 01:14-0500 Body unargl248.48 [facility]EXTRABANCA [facility] [employer] Work Phone: 1(661)78453 [address]02-05-2023 01:14-0500 Body mokqynxdwvm24 [degF]Services [facility] [employer] Work Phone: 1(596)04153 [address]02-05-2023 01:14-0500 Body .11 kgSercommunity medical center-[facility]Stone[facility] [employer] Work Phone: [phone]-[facility]02-03-2023 12:11-0500 Heart rate70 /minSWexner Medical Center [employer] Work Phone: 1(689)95153 [address]02-03-2023 12:08-0500 Body ythaek626.[address] [facility] [employer] Work Phone: 1(359)22653 [address]02-03-2023 12:08-0500 Body kytkkrquixq68.7 [degF]Services [facility] [employer] Work Phone: 1(889)68953 [address]02-03-2023 12:08-0500 Body ohzfen55 [facility] [employer] Work Phone: 1(816)99953 [address]02-03-2023 12:08-0500 Diastolic blood komiacuf19 mm[Hg]Services [facility] [employer] Work Phone: 1(713)71353 [address]02-03-2023 12:08-0500 Respiratory rate18 /[facility] [employer] Work Phone: 1(049)55953 [address]02-03-2023 12:08-0500 SaO2% (BldA) [Mass fraction]99 %Services [facility] [employer] Work Phone: 1(270)[address] [place], [place] 2843302-03-2023 12:08-0500 Systolic blood gdbgedfi745 mm[Hg]Services [facility] [employer] Work Phone: 1(850)[address] [place], [place] 2843312-13-2022 15:15-0500 Body uagvls451.[address] [facility] [employer] Work Phone: 1(449)37153 [address]12-13-2022 15:15-0500 Body muqpieicrey20.4 [degF]Services [facility] [employer] Work Phone: 1([phone])17553 [address]12-13-2022 15:15-0500 Body iatoiw76.64 [facility]ott [facility] [employer] Work Phone: 1(965)49853 [address]12-13-2022 15:15-0500 Diastolic blood ugstqdvr12 mm[Hg]Services [facility] [employer] Work Phone: 1(419)[address] [place], [place] 2843312-13-2022 15:15-0500 Heart rate95 /minSLoopback Senior Work Phone: 1(415)[address] [place], [place] 2843312-13-2022 15:15-0500 Respiratory rate16 /minSL[employer]back Senior Work Phone: 1(504)[address] [place], [place] 2843312-13-2022 15:15-0500 SaO2% (BldA) [Mass fraction]100 %Services [facility] [employer] Work Phone: 1419)[address] [place], [place] 2843312-13-2022 15:15-0500 Systolic blood dcpeiwdk791 mm[Hg]Services [facility] [employer] Work Phone: 1(046)[address] [place], [place] 2843312-11-2022 13:40-0500 Diastolic blood qkyaxhya77 mm[Hg]Services [facility] [employer] Work Phone: 1(827)[address] [place], [place] 2843312-11-2022 13:40-0500 Heart rate68 /minSMotiga Work Phone: 1419)[address] [place], [place] 2843312-11-2022 13:40-0500 Respiratory rate16 /minSTravelSharklawrence medical center [employer] Work Phone: 1(284)[address] [place], [place] 2843312-11-2022 13:40-0500 SaO2% (BldA) [Mass fraction]100 %Services [facility] [employer] Work Phone: 1(807)[address] [place], [place] 2843312-11-2022 13:40-0500 Systolic blood cgqzfuxw528 mm[Hg]Services [facility] [employer] Work Phone: 1(371)[address] [place], [place] 2843312-11-2022 11:05-0500 Body gwyxvhriwuu41.2 [degF]Services [facility] [employer] Work Phone: 1(002)[address] [place], [place] 2843312-11-2022 11:04-0500 Body gzuctx871.75 cmServices [employer] Work Phone: 1(602)[address] [place], [place] 2843312-11-2022 11:04-0500 Body abtnta68 kgServices [employer] Work Phone: 1(154)[address] [place], [place] 2843312-06-2022 09:53-0500 Diastolic blood xofspovg25 mm[Hg]Services [facility] [employer] Work Phone: 1(396)75253 [address]12-06-2022 09:53-0500 Heart rate50 /minSMotiga Work Phone: 1(366)[address]53 [address]12-06-2022 09:53-0500 Respiratory rate18 /minSst. [facility] [employer] Work Phone: 1(174)78753 [address]12-06-2022 09:53-0500 SaO2% (BldA) [Mass fraction]98 %Services [facility] [employer] Work Phone: 1(458)46353 [address]12-06-2022 09:53-0500 Systolic blood xeakulhg977 mm[Hg]Services [facility] [employer] Work Phone: 1(416)92353 [address]12-06-2022 03:00-0500 Body [address]u694[address] [facility] [employer] Work Phone: 1(391)[address] [place], [place] 2843312-06-2022 03:00-0500 Body mkvprzpuffs38.4 [degF]Services [facility] [employer] Work Phone: 1([phone])31153 [address]12-06-2022 03:00-0500 Body tqlanu65 kgSerHealthBridge Children's Rehabilitation Hospital [employer] Work Phone: 1(950)92653 [address]12-04-2022 10:05-0500 Diastolic blood dbytrtmn96 mm[Hg]Services [facility] [employer] Work Phone: 1(573)41853 [address]12-04-2022 10:05-0500 Heart rate59 /minSst. [facility] [employer] Work Phone: 1(811)126-[address] [place], [place] 9234212-04-2022 10:05-0500 Respiratory rate18 /[facility] PrebleTravelSharklawrence medical center [employer] Work Phone: 1(302)53953 [address]12-04-2022 10:05-0500 SaO2% (BldA) [Mass fraction]98 %Services [facility] [employer] Work Phone: 1(798)83753 [address]12-04-2022 10:05-0500 Systolic blood cywxofeb231 mm[Hg]Services [facility] [employer] Work Phone: 1(298)012-[address] [place], [place] 9234212-04-2022 08:50-0500 Body zonpzf815.[address] [facility] [employer] Work Phone: 1(416)27253 [address]12-04-2022 08:50-0500 Body egaelajxcuy99.2 [degF]Services [facility] [employer] Work Phone: 1(779)08653 [address]12-04-2022 08:50-0500 Body .91 kgSerSentara [facility] Hospital [employer] Work Phone: 1(400)06153 [address]12-02-2022 12:01-0500 Body xyarhe215.[address] [facility] [employer] Work Phone: 1(838)28853 [address]12-02-2022 12:01-0500 Body ujddxguikjx08.8 [degF]Services [facility] [employer] Work Phone: 1(133)442-[address] [place], [place] 9234212-02-2022 12:01-0500 Body zfkafo40 kgSerSentara [facility] Hospital [employer] Work Phone: 1(403)02253 [address]12-02-2022 12:01-0500 Diastolic blood diuhnbyv20 mm[Hg]Services [facility] [employer] Work Phone: 1(318)39153 [address]12-02-2022 12:01-0500 Heart rate60 /[facility] [employer] Work Phone: 1(924)767-[address] [place], [place] 9234212-02-2022 12:01-0500 Respiratory rate18 /[facility] [employer] Work Phone: 1(317)005-[address] [place], [place] 9234212-02-2022 12:01-0500 SaO2% (BldA) [Mass fraction]99 %Services [facility] [employer] Work Phone: 1(089)390-[address] [place], [place] 9234212-02-2022 12:01-0500 Systolic blood snviiayz063 mm[Hg]Services [facility] [employer] Work Phone: 1(548)03953 [address]09-25-2022 12:00-0400 Body falococorlf89 [degF]Services [employer] Phone: 1(185)7[address]09-25-2022 12:00-0400 Diastolic blood mm[Hg]Services [employer] Work Phone: [address] [place], [place] 9205609-25-2022 12:00-0400 Heart rate80 /[employer] Work Phone: [address] [place], [place] 9205609-25-2022 12:00-0400 Respiratory rate18 /minSLoopback Work Phone: [phone])[address] [place], [place] 9205609-25-2022 12:00-0400 SaO2% (BldA) [Mass fraction]95 %Services [employer] Work Phone: [address] [place], [place] 9205609-25-2022 12:00-0400 Systolic blood omqmrvgm545 mm[Hg]Services [employer] Work Phone: [address] [place], [place] 9205609-25-2022 05:50-0400 Body .5 kgServic [employer] Work Phone: [address] [place], [place] 9205609-24-2022 11:27-0400 Body zbsysf364.48 cmServices [employer] Work Phone: 1(315)[address] [place], [place] 9205609-23-2022 16:34-0400 Diastolic blood miabdxmu43 mm[Hg]Services [employer] Work Phone: [address] [place], [place] 9205609-23-2022 16:34-0400 Heart rate68 /[employer] Work Phone: [phone])03250 [address]09-23-2022 16:34-0400 Respiratory rate20 /minSLoopback Work Phone: [address] [place], [place] 9205609-23-2022 16:34-0400 SaO2% (BldA) [Mass fraction]96 %Services [employer] Work Phone: 1(636)92450 [address]09-23-2022 16:34-0400 Systolic blood nfkmubcj179 mm[Hg]Services [employer] Work Phone: 1(413)30550 [address]09-23-2022 11:58-0400 Body hojrgh374.48 [employer] Work Phone: 1(145)24450 [address]09-23-2022 11:58-0400 Body nmkpzabxflz74.9 [degF]Services [employer] Work Phone: 1(246)03250 [address]09-23-2022 11:58-0400 Body iejtck20.37 kgSerPar[employer] Work Phone: 1(359)40150 [address]09-23-2022 01:00-0400 Body dyntdutjpct45.9 [degF]Services [employer] Work Phone: 1(703)31750 [address]09-23-2022 01:00-0400 Diastolic blood bkyobmdh53 mm[Hg]Services [employer] Work Phone: 1(498)63750 [address]09-23-2022 01:00-0400 Heart rate53 /[employer] Work Phone: 1(240)58650 [address]09-23-2022 01:00-0400 Respiratory rate16 /[employer] Work Phone: 1(975)99450 [address]09-23-2022 01:00-0400 SaO2% (BldA) [Mass fraction]97 %Services [employer] Phone: 1(123)79050 [address]09-23-2022 01:00-0400 Systolic blood jmvyqeko687 mm[Hg]Services [employer] Work Phone: 1(404)95950 [address]09-22-2022 18:57-0400 Body .48 cmSLoopback Work Phone: 1(522)38950 [address]09-22-2022 18:57-0400 Body faoeek51.37 kgSerPar[employer] Work Phone: 1(916)58150 [address]09-22-2022 14:00-0400 Diastolic blood kfuebpmo32 mm[Hg]Services [employer] Work Phone: 1(490)96950 [address]09-22-2022 14:00-0400 Heart rate67 /[employer] Work Phone: 1(380)939-[address] [place], [place] 9855809-22-2022 14:00-0400 Respiratory rate20 /minSmercy health tiffin hospitalAmanda Huff DBA [employer] Work Phone: 1(722)[address]09-22-2022 14:00-0400 SaO2% (BldA) [Mass fraction]99 %Services [employer] Work Phone: 1(597)34550 [address]09-22-2022 14:00-0400 Systolic blood mm[Hg]Services [employer] Work Phone: 1(379)68150 [address]09-22-2022 00:40-0400 Body aeylcv441.[address] [facility] [employer] Work Phone: 1(543)62950 [address]09-22-2022 00:40-0400 Body dyowavjbgwt96.8 [degF]Services [employer] Work Phone: 1(398)08950 [address]09-22-2022 00:40-0400 Body ussybm89.11 kgSerwarren state hospital [employer] Work Phone: 1(356)28950 [address]09-21-2022 15:28-0400 Body gusmzmjyqle11.8 [degF]Services [employer] Work Phone: 1(357)02850 [address]09-21-2022 15:28-0400 Diastolic blood xuzvbgmi90 mm[Hg]Services [employer] Work Phone: 1(428)99150 [address]09-21-2022 15:28-0400 Heart rate54 /[facility] [employer] Work Phone: 1(275)71650 [address]09-21-2022 15:28-0400 Respiratory rate20 /[facility] [employer] Work Phone: 1(682)06350 [address]09-21-2022 15:28-0400 SaO2% (BldA) [Mass fraction]100 %Services [employer] Work Phone: 1(131)72150 [address]09-21-2022 15:28-0400 Systolic blood jhkharaw776 mm[Hg]Services [employer] Work Phone: 1(419)[address] [place], [place] 9205609-21-2022 12:26-0400 Body kfksoi589.48 [facility] Work Phone: 1(115)[address] [place], [place] 9205609-21-2022 12:26-0400 Body kalsvg46.11 kgSerwarren state hospital [employer] Phone: 1(290)[address] [place], [place] 9205607-13-2022 10:25-0400 Diastolic blood mm[Hg]Services [employer] Work Phone: 1(867)[address] [place], [place] 9205607-13-2022 10:25-0400 Heart rate83 /[facility] [employer] Phone: 1(549)[address] [place], [place] 9205607-13-2022 10:25-0400 Respiratory rate20 /[facility] [employer] Phone: 1(853)[address] [place], [place] 9205607-13-2022 10:25-0400 SaO2% (BldA) [Mass fraction]98 %Services [employer] Phone: 1(721)[address] [place], [place] 9205607-13-2022 10:25-0400 Systolic blood dgefvsxa31 mm[Hg]Services [employer] Phone: 1(627)[address] [place], [place] 9205607-13-2022 08:46-0400 Body jiuaus442.48 [facility] hospitalTravelSharklawrence medical center [employer] Phone: 1(438)[address] [place], [place] 9205607-13-2022 08:46-0400 Body mass index (BMI) [Percentile] Per age and sex96.2 %Services [employer] Phone: 1(014)23250 [address]07-13-2022 08:46-0400 Body mass index (BMI) [Ratio]32 kg/d6Gogokywa [employer] Phone: 1(748)[address] [place], [place] 9205607-13-2022 08:46-0400 Body oigufhqrhas84.4 [degF]Services [employer] Phone: 1(137)[address] [place], [place] 9205607-13-2022 08:46-0400 Body yljjvf86.37 kgSerwarren state hospital [employer] Work Phone: 1(536)[address] [place], [place] 9205606-19-2022 13:52-0400 Diastolic blood uqinhmtp60 mm[Hg]Services [employer] Work Phone: 1(624)751-[address] [place], [place] 9855806-19-2022 13:52-0400 Heart rate66 /minServAmanda Huff DBA [employer] Work Phone: 1(953)62350 [address]06-19-2022 13:52-0400 Respiratory rate18 /minServices [employer] Work Phone: 1(576)80450 [address]06-19-2022 13:52-0400 SaO2% (BldA) [Mass fraction]100 %Services [employer] Work Phone: 1(602)72350 [address]06-19-2022 13:52-0400 Systolic blood qgxmmcme253 mm[Hg]Services [employer] Phone: 1(489)90450 [address]06-19-2022 11:54-0400 Body voagxu442.[address] [facility] [employer] Work Phone: 1(326)59150 [address]06-19-2022 11:54-0400 Body mass index (BMI) [Percentile] Per age and sex95.5 %Services [employer] Phone: 1(765)99250 [address]06-19-2022 11:54-0400 Body mass index (BMI) [Ratio]31.1 kg/a0Oeylpmky [employer] Phone: 1(436)452-[address] [place], [place] 9855806-19-2022 11:54-0400 Body hjhjkzycwwd01.4 [degF]Services [employer] Work Phone: 1(310)28850 [address]06-19-2022 11:54-0400 Body gshnse64.11 kgSerwarren state hospital [employer] Phone: 1(554)82350 [address]06-18-2022 15:30-0400 Diastolic blood ilaanflf58 mm[Hg]Services [employer] Phone: 1(545)83050 [address]06-18-2022 15:30-0400 Heart rate52 /minServAmanda Huff DBA [employer] Work Phone: 1(666)392-[address] [place], [place] 9855806-18-2022 15:30-0400 Respiratory rate14 /minServices [employer] Work Phone: 1(096)822-[address] [place], [place] 9855806-18-2022 15:30-0400 SaO2% (BldA) [Mass fraction]99 %Services [employer] Work Phone: 1(838)44850 [address]06-18-2022 15:30-0400 Systolic blood dlluzunp425 mm[Hg]Services [employer] Work Phone: [phone]-18-2022 12:28-0400 [facility]xyt204.[address] [facility] [employer] Work Phone: [phone] [address]06-18-2022 12:28-0400 Body mass index (BMI) [Percentile] Per age and sex95.5 %Services [employer] Work Phone: [phone] [address]06-18-2022 12:28-0400 Body mass index (BMI) [Ratio]31 kg/f6Lyuojiuf [employer] Work Phone: [phone] [place], [place] [id number] 12:28-0400 Body .1 [degF]Services [facility] Work Phone: [phone] [address]06-18-2022 12:28-0400 Body rdhaya09 [facility] [employer] Work Phone: [phone] [address]06-17-2022 22:56-0400 Body bdrmgaezhdq77.1 [degF]Services [facility] [employer] Work Phone: [phone] [address]06-17-2022 22:56-0400 Diastolic blood rwraxvgt99 mm[Hg]Services [facility] [employer] Work Phone: [phone] [address]06-17-2022 22:56-0400 Heart rate18 /minSmercy health tiffin hospitalAmanda Huff DBA [employer] Work Phone: [phone] [address]06-17-2022 22:56-0400 Respiratory rate18 /minSmercy health tiffin hospitalAmanda Huff DBA [employer] Work Phone: [phone] [place], [place] 9855806-17-2022 22:56-0400 SaO2% (BldA) [Mass fraction]94 %Services [employer] Phone: [phone])281-[address] [place], [place] 9855806-17-2022 22:56-0400 Systolic blood obnuixda766 mm[Hg]Services [employer] Phone: [phone] [address]06-17-2022 02:18-0400 Body .48 cmSmercy health tiffin hospitalices [employer] Work Phone: [phone] [place], [place] 9855806-17-2022 02:18-0400 Body mass index (BMI) [Percentile] Per age and sex95.5 %Services [employer] Phone: [phone] [place], [place] 9855806-17-2022 02:18-0400 Body mass index (BMI) [Ratio]31.1 kg/d2Pemkhwla [employer] Phone: [phone]06-17-2022 02:18-0400 Body abcxzhruueo26.9 [degF]Services [employer] Phone: [phone] [address]06-17-2022 02:18-0400 Body gamdfx95.11 kgSerwarren state hospital [employer] Phone: [phone] [place], [place] 9855806-17-2022 02:18-0400 Diastolic blood dduimiam43 mm[Hg]Services [employer] Phone: [phone] [place], [place] 9855806-17-2022 02:18-0400 Heart rate54 /minSmercy health tiffin hospitalAmanda Huff DBA [employer]uRec[employer] Work Phone: [phone] [place], [place] 9855806-17-2022 02:18-0400 Respiratory rate18 /minSmercy health tiffin hospitalAmanda Huff DBA [employer]Rec[employer] Work Phone: [phone] [place], [place] 9855806-17-2022 02:18-0400 SaO2% (BldA) [Mass fraction]98 %Services [employer] Phone: [phone]-[facility]06-17-2022 02:18-0400 Systolic blood wnsebpxh801 mm[Hg]Services [employer] Phone: [phone] [place], [place] 9855806-16-2022 12:09-0400 Heart rate72 /[facility] [employer] Phone: [phone] [place], [place] 9855806-16-2022 12:09-0400 Respiratory rate18 /[facility] [employer] Phone: [phone] [place], [place] 9205606-16-2022 12:09-0400 SaO2% (BldA) [Mass fraction]98 %Services [facility] [employer] Phone: [phone] [address]06-16-2022 10:32-0400 Body ocdtxi922.21 cmSWexner Medical Center [employer] Phone: [phone] [address]06-16-2022 10:32-0400 Body mass index (BMI) [Percentile] Per age and sex95.9 %Services [facility] [employer] Phone: [phone] [address]06-16-2022 10:32-0400 Body mass index (BMI) [Ratio]31.6 kg/k9Watpfuaz [employer] Phone: [phone]06-16-2022 10:32-0400 Body vewxlbcrlqc06.1 [degF]Services [facility] [employer] Phone: [phone] [address]06-16-2022 10:32-0400 Body acloct41.11 kgSerSentara [facility] Hospital [employer] Phone: [phone] [address]06-16-2022 10:32-0400 Diastolic blood wbxhfacu65 mm[Hg]Services [facility] [employer] Phone: [phone] [address]06-16-2022 10:32-0400 Systolic blood lfyetkdh758 mm[Hg]Services [facility] [employer] Phone: [phone] [place] [address] Encounters Encounter DateEncounter TypeCare ProviderFacilityStart: 08-28-2025 End: 70-40-4329Lczzxcg encounter procedureKelsey Espino APRN [employer]-BC-Lab [place] Work Phone: Start: 08-28-2025 End: 58-92-2554iikeosfgskJISIINKKW NO [facility] Ctr Work Phone: Start: 08-22-2025 End: 71-89-5129Ciuwlwlpy department patient visitFederico Randolph Facility:FTMCStart: 05-06-2025 End: 54-52-2517abndaebcbfCmvje T [facility] Work Phone: Start: 05-06-2025 End: 89-65-8262Frlwfwxp Kimber Dahl MD Work Phone: [facility] Ctr-LAB Path Spec [facility]ospStart: 05-04-2025 End: 98-90-9692shoicekntlFmmmndp M [facility] Ctr Work Phone: Start: 05-04-2025 End: 09-92-5861Bduqojkp Kimber Dahl MD Work Phone: [facility] Ctr-LAB Path Spec [facility] HospStart: 01-23-2025 End: 23-20-0131nlddbjviwfHabtvfcr Family [facility] Work Phone: [facility] Ctr Work Phone: Start: 01-23-2025 End: 41-09-8763Ycegyoyc ReferredSerSentara [facility] General Hospital Work Phone: [facility] Ctr-LAB Path Spec [facility] HospStart: 01-16-2025 End: 30-61-1234Zjvxjggji department patient visitAstrit H [facility] Start: 10-28-2024 End: 14-28-0499Zpigiccch department patient visitServices [facility] Work Phone: [facility] Ctr-Emergency Room Work Phone: Start: 94-82-8530Dhi-patient / Non-visitServices [facility] Work Phone: [facility] Work Phone: Start: 08-03-2024 End: 08-85-9589Ycznixpex department patient visitServices Family [facility] Work Phone: [facility] Ctr-Emergency Room Work Phone: Start: 08-01-2024 End: 77-90-3926Iynuoouli department patient visitJEARAMIS EMNDESSONFacility:FT Start: 07-30-2024 End: 10-32-7570Ffpjvglqn department patient visitTim ThomasFacility:FTMCStart: 03-18-2024 End: 43-74-0948Bnnfcnmqj department patient visitServices [facility] Work Phone: [facility] Ctr-Emergency Room Work Phone: Start: 03-15-2024 End: 70-65-2388Ttgksqfwz department patient visitAstrit Raf EbonyOhiohealth [facility] Start: 03-13-2024 End: 62-64-4334Azhdapxfh department patient visitJomarylu Ernandeze [facility] Start: 07-31-2023 End: 28-34-8062Tgjbhhgwd department patient visitServices [facility] Work Phone: [facility] Ctr-Emergency Room Work Phone: Start: 07-14-2023 End: 12-20-3976ibvuzvbsgxAexsmarb [facility] Work Phone: [facility] Ctr Work Phone: Start: 07-14-2023 End: 86-25-1361Qbttquz encounter procedureServices [facility] Work Phone: [facility] Ctr-XRay [facility] Start: 06-16-2023 End: 34-37-4031amlpmtxijbCusouctn Family [facility] Work Phone: [phone] [place] [address] Ctr Work Phone: Start: 06-16-2023 End: 80-79-1226Amkzxmp encounter procedureServices [employer] Work Phone: [facility] Ctr-XRay [facility] Start: 50-83-8732Hiysej follow up visit related to original pxThomas OlexaFPG [facility] OrthopedicsStart: 06-02-2023 End: 30-91-9134flcgmnfddoHzefqzdy [facility] [employer] Work Phone: [employer] Other Start: 06-02-2023 End: 15-22-3469Bdsydrf encounter procedureServAmanda Huff DBA SecuRecovery Work Phone: [facility] Ctr-XRay [facility] Start: 05-25-2023 End: 66-83-0581Urydwgvgr to same day surgery centerServAmanda Huff DBA SecuRecovery Work Phone: [facility] Ctr-Surgery Center [place]Start: 05-25-2023 End: 95-99-4579rbwumysgddMfhadilo [employer] Work Phone: [facility] Ctr Work Phone: Start: 05-24-2023 End: 33-05-6037hqnwjfdmseNxcxpf Olex[employer] Other [employer] Other Start: 64-70-0020Tbiusxygt encounterThomas OlexaFPG [facility] OrthopedicsStart: 05-23-2023 End: 44-46-7534eyswtpblddBgudvx [employer] Other [employer] Other Start: 90-66-9257Wkbgyuzgm for other preprocedural examinationThomas OlexaFPG [facility] OrthopedicsStart: 15-81-0281Ecgmda outpatient new 45 minutesThomas OlexaFPG [facility] OrthopedicsStart: 03-15-2023 End: 49-06-9882Bjhofrmi ReferredSerwarren state hospital [facility] Work Phone: [facility] Ctr-LA [facility] ServicesStart: 01-26-2023 End: 85-16-3394wtpfhfnbtlCB DOCTOR MISCFacility:I3Uhywe: 01-06-2023 End: 29-55-6406Wcjokbokry and management of inpatientSCritical access hospital Work Phone: [facility] Work Phone: Start: 27-97-3349krjywjuakjj encounterServQuorum Health Work Phone: [facility] Ctr Work Phone: Start: 01-06-2023 End: 71-61-2697FjwtragxS[facility] Work Phone: [facility] Ctr-3 Junior Med Surg Work Phone: Start: 01-02-2023 End: 18-38-9353EpaiwarxSloop Memorial Hospital Work Phone: [facility] Ctr-Emergency Room Work Phone: Start: 01-01-2023 End: 73-93-8465eowvjsuvfcYNOIEZ DIAB .Facility:Z6Utgpb: 12-31-2022 End: 30-16-5597Kelkuapqo department patient visitServQuorum Health Work Phone: [facility] Ctr Work Phone: Start: 12-31-2022 End: 01-25-9296DvnkdabnSloop Memorial Hospital Work Phone: [facility] Ctr-Emergency Room Work Phone: Start: 11-09-2022 End: 31-47-5625Psxlepalt department patient visitServQuorum Health Work Phone: [facility] Ctr Work Phone: Start: 11-09-2022 End: 13-19-3572NriemmifQuorum Health Work Phone: [facility]-Emergency RoomStart: 11-07-2022 End: 02-60-1504Xwsklprtp department patient visitServices [facility] Senior Work Phone: [facility] Work Phone: Start: 11-07-2022 End: 68-71-1030Txexcayj [facility] Senior Work Phone: [facility]-Emergency RoomStart: 11-02-2022 End: 41-66-5315Qkopazwde department patient visitServices [facility] Senior Work Phone: [facility] Work Phone: Start: 11-02-2022 End: 00-05-2024Mxoeqnws [facility] Senior Work Phone: [facility]-Emergency RoomStart: 10-31-2022 End: 28-93-1456Vsvdpahcj department patient visitServices [facility] Senior Work Phone: [facility] Work Phone: Start: 10-31-2022 End: 04-90-0085Xazepdkj [facility] Senior Work Phone: [facility]-Emergency RoomStart: 10-29-2022 End: 03-78-9000Wzubifepi department patient visitServices [facility] [employer] Work Phone: [facility]-Emergency RoomStart: 10-29-2022 End: 23-02-7716Cixhblpc [facility] Senior Work Phone: [facility]-Emergency RoomStart: 08-27-2022 End: 95-01-4737Hdcdrbfk ReferredSerSentara [facility] Senior Work Phone: [facility] ServicesStart: 08-27-2022 End: 34-68-8295Armthjis [facility] [employer] Work Phone: [facility] ServicesStart: 08-20-2022 End: 10-78-7633Ubfqadeylq and management of inpatientServlawrence medical center [employer] Phone: [facility] Ctr-3 Junior Med SurgStart: 08-20-2022 End: 25-22-5995Cgufvgxc [facility] Senior Work Phone: [facility] Ctr-3 Junior Med SurgStart: 08-19-2022 End: 89-12-2975Wfwfiwxqx department patient visitServCone Health Wesley [facility] Work Phone: [facility]-Emergency RoomStart: 08-19-2022 End: 68-52-7223Rlfrybjm [facility] Senior Work Phone: [facility] Ctr-Emergency RoomStart: 08-19-2022 End: 27-00-5541Kfhmoikhf department patient visitServCone Health Wesley Long Hospital [employer] Phone: [facility] Ctr-Emergency RoomStart: 08-19-2022 End: 31-33-0202Mrxaywnb [facility] Senior Work Phone: [facility] Ctr-Emergency RoomStart: 08-18-2022 End: 78-06-0282Ygwckcsty department patient visitServCone Health Wesley Long Hospital [employer] Phone: [facility] Ctr-Emergency RoomStart: 08-18-2022 End: 74-54-6790Igvuawul [facility] [employer] Work Phone: [facility] Ctr-Emergency RoomStart: 06-25-2022 End: 09-05-3550Csjerrez ReferredSerHealthBridge [facility] [employer] Phone: [facility] Ctr-LA Family Health ServicesStart: 06-09-2022 End: 33-69-5314Ksvusmmea to same day surgery centerServlawrence medical center [employer] Phone: [facility] Ctr-Digestive HealthStart: 06-07-2022 End: 11-70-5744Iexamuk encounter procedureServlawrence medical center [employer] Phone: [facility] Kki-Xso-Lhixicfl Testing Start: 05-26-2022 End: 91-59-5776Prwnniez ReferredServic Family [facility] Work Phone: [facility] ServicesStart: 92-90-0224umhnyetutlZrtnqe Jenkins RNNURSE ON CALLComment on above:Abdominal PainStart: 05-16-2022 End: 86-73-1780Eaoglhetg department patient visitServices Family [facility] Work Phone: [phone] [place] [address] Ctr-Emergency RoomStart: 05-15-2022 End: 09-91-2697Pkcsqkafp department patient visitServices Family [facility] Work Phone: [phone] [place] [address] Ctr-Emergency RoomStart: 05-14-2022 End: 24-52-2509Ctekurlod department patient visitServices Family [facility] Work Phone: [phone] [place] [address] Ctr-Emergency RoomStart: 05-14-2022 End: 93-88-2033Xfrdfxgtb department patient visitServices Family [facility] Work Phone: [facility] Ctr-Emergency RoomStart: 05-13-2022 End: 89-39-3984Drmuaubil department patient visitServices [facility] Work Phone: [phone] [place] [address] Ctr-Emergency RoomStart: 02-60-8974Bsnymkpwus and management of inpatientBridget Magy Unger Facility:RBCStart: 09-73-5214Dwvojah encounterJUDY B SPLIRAISFacility:9193Start: 82-44-6084Mgpshdh encounterMere Solorio MaxwellFacility:9193Start: 04-14-2018 Patient encounterJUDY B SPLAWSKIFacility:9193Start: 69-82-8155Zsfwdbo encounter Mere PuenteswellFacility:9193Start: 36-61-9621Ysbeyfq encounterJUDY B SPLIRAIS Facility:9193Start: 37-52-9476Izsidlp encounterJUDY B SPLAWSKIFacility:9193 Start: 83-80-4282Jxhfziq encounterJUDY B SPLAWSKIFacility:9193Start: 09-28-2017 Patient encounterKatmilo Solorio MaxwellFacility:9305Start: 44-77-6484Qpjuanu encounterDALI Marcus KEYONNAFacility:[facility] CtrStart: 08-09-2017 End: 10-28-8626Igibdcunqs and management of inpatientAIMEE WILKERSONSEILING REGIONAL MED[facility]ENTER – SEILINGLUIS EDUARDO Facility:RBC Procedures DateProcedureProcedure DetailPerforming ClinicianStart: 66-24-1439Xubjx culture Jasmeet Dahl MD Work Phone: Start: 85-31-5003Auygp [facility] HospitalLoop[facility] Work Phone: Start: 20-19-2339N-ray of right kneeServices [employer] Work Phone: Start: 13-26-0662D-ray of right kneeSst. lawrence psychiatric center [employer] Work Phone: Start: 56-20-7651E-ray of right kneeSmercy health tiffin hospitalices [employer] Work Phone: Start: 46-20-2236Ruigxsjsmrv of kneeSmercy health tiffin hospitalAmanda Huff DBA SecuRecovery Work Phone: Start: 20-55-7121Lroobwhwvvh Panel (PCR)Services [employer] Work Phone: Start: 13-87-6520Msemmerl tomography of abdomen and pelvis with contrastSmercy health tiffin hospitalWinchannel Work Phone: Start: 83-70-9850Idcdc chest X-raySmercy health tiffin hospitalMVious [employer]otics Phone: Start: 19-94-0817Hgblcf X-raySmercy health tiffin hospitalWinchannel Work Phone: Start: 81-39-8827Oqwyv cultureSmercy health tiffin hospitalWinchannel Work Phone: Start: 20-27-4006Jrstydpir A and B virus antigen assay Services [employer] Work Phone: Start: 15-03-2412Tsneh cultureSMotiga Work Phone: Start: 97-93-0767Hwyxr [facility] CenterWinchannel Work Phone: Start: 34-26-9763Ctuca cultureServWinchannel Work Phone: Start: 17-89-4252Egmttgzb tomography of abdomen and pelvis with contrastServices [employer] Work Phone: Start: 45-59-9126AictnqpdxoklxhpgjzgchpigspPutovfpp [employer] Phone: Start: 42-99-7297Ulffgzni tomography of abdomen and pelvis with contrastServices [employer] Work Phone: Start: 33-16-0856Jlfznfatphfh of Nutritional Substance into Upper GI, Via Natural or Artificial OpeningKathleen MaxwellStart: 50-20-1991Kpeykcbhol of Larynx, Via Natural or Artificial Opening Endoscopic Mere MaxwellStart: 13-64-3367Ypdcbuu Bleeding in Respiratory Tract, Via Natural or Artificial OpeningKathleen MaxwellStart: 49-87-1542Fkjdbroh of Duodenum, Via Natural or Artificial Opening Endoscopic, DiagnosticKateen MaxwellStart: 77-18-0814Earrcykz of Lower Esophagus, Via Natural or Artificial Opening Endoscopic, DiagnosticKathleen MaxwellStart: 98-45-5831Cgaqdqcr of Stomach, Pylorus, Via Natural or Artificial Opening Endoscopic, Diagnostic [facility] Medical CenterSARS Antigen (LFIA)Services [employer] Work Phone: SARS Antigen (LFIA)Services [employer] Work Phone: SARS Antigen (LFIA)Services [employer] Work Phone: Urine [facility] CenterAmanda Huff DBA SecuRecovery Work Phone: Urine [facility] CenterAmanda Huff DBA Sec[employer]Recovery Work Phone: Urine [facility] Medical CenterAmanda Huff DBA SecuRecovery Work Phone: Urine [facility] Medical CenterWinchannel Work Phone: [facility]war[facility] [employer] Work Phone: Sercommunity medical center-clovises [employer] Work Phone: Serwarren state hospital [employer] Work Phone: Plan of Treatment DateCare ActivityDetailAutrStart: 60-90-8081Ffpyh [facility] Hospitaltart: 63-80-2269Scbxnvbf identified in Urine by CultureUrine CultureGenesis Hospitaltart: 61-59-0995Dudqgbly identified in Urine by CultureUrine CultureGenesis Hospitaltart: 05-06-2025 Urine cultureGenesis Hospitaltart: 83-39-3307Zyosvitv identified in Urine by CultureUrine [facility] Start: 76-78-0171Nkzxo [facility] Hospitaltart: 01-23-2025 Bacteria identified in Urine by CultureUrine [facility] Hospitaltart: 11-94-8743Oxrgg [facility] Hospitaltart: 06-89-9016AwypyfaifGenesis Hospitaltart: 87-51-8393NodfvqmknGenesis Hospitaltart: 29-62-1183HhnwtesmzGenesis Hospitaltart: 52-05-4715TyfoqenlvGenesis Hospitaltart: 16-44-5481Hfalt chemistry [facility] Hospitaltart: 76-75-6016SvegcqezqGenesis Hospitaltart: 33-91-8550Vqmqg chemistryGenesis Hospitaltart: 01-07-2023 End: 79-53-7673ZvibqnmedGenesis Hospitaltart: 86-26-1201Dlnzksz referral to dietitianGenesis Hospitaltart: 40-21-0721Hxsopaoq admissionGenesis Hospitaltart: 22-98-6159SizfejvfzGenesis Hospitaltart: 99-18-3833Ergsnvqe tomography of abdomen and pelvis with contrastGenesis Hospitaltart: 64-10-7392UF Abdomen and Pelvis W contrast [facility] Centertart: 01-06-2023 End: 91-72-6914BygucptifTrumbull Regional Medical Center CenterStart: 50-92-5275Gvhlr culture Genesis Hospitaltart: 12-31-2022 End: 63-66-7238LwytgisicGenesis Hospitaltart: 46-26-8750PcsyeymguTrumbull Regional Medical Center CenterStart: 81-32-5290OikiimtwcGenesis Hospitaltart: 03-22-6184AvzgnayayGenesis Hospitaltart: 65-93-3432WjyjfgnowKindred Healthcare Work Phone: Start: 60-68-7884Loivdtvf admissionGenesis Hospitaltart: 08-83-6273JyzqbwqbaTrumbull Regional Medical Center Ctr Work Phone: Start: 37-40-0764ZvnbvkvzuTrumbull Regional Medical Center Ctr Work Phone: Start: 32-31-5347Pkmnlcdn tomography of abdomen and pelvis with contrastCT abdomen pelvis w [facility] Start: 91-61-8469RW Abdomen and Pelvis W contrast [facility] Work Phone: Start: 22-20-3273OumlfgggkTrumbull Regional Medical Center Ctr Work Phone: Start: 17-28-3892Uphzhkvuv vaccinationINFLUENZA (Season Ended)[facility] Institutetart: 59-15-2972ZsobtpxhuTrumbull Regional Medical Center Ctr Work Phone: Start: 01-65-2578PPXNDJLJQ SCREENING (18-24)CHLAMYDIA SCREENING (18-24)[facility] Institutetart: 88-49-5662NG (GONORRHEA) SCREENING (18-24)GC (GONORRHEA) SCREENING (18-24)[facility] Institutetart: 2022 HEPATITIS C SCREENINGHEPATITIS C SCREENINGRiverview Health Institutetart: 32-15-8726QLO SCREENINGHIV SCREENINGRiverview Health Institutetart: 93-61-6912USDVDCYVBMMTD CONJUGATE (1 - 2-dose series)MENINGOCOCCAL CONJUGATE (1 - 2-dose series)[facility] Start: 51-05-3606PREQ TO ADULT TRANSITION ANNUAL ASSESSMENTPEDS TO ADULT TRANSITION ANNUAL ASSESSMENTRiverview Health Institutetart: 10-35-9391Qnsnl depression screening assessmentDEPRESSION SCREENINGCleCommunity Regional Medical Centertart: 61-45-0711WDHD TO ADULT TRANSITION INITIAL DISCUSSIONPEDS TO ADULT TRANSITION INITIAL DISCUSSION [facility] Institutetart: 72-58-6138OSG VACCINE (1 - 2-dose series)HPV VACCINE (1 - 2-dose series)[facility] Institutetart: 24-85-1190ZUJURIESAGZHG B: Consider based on risk (1 of 2 - Risk Bexsero 2-dose series)MENINGOCOCCAL B: Consider based on risk (1 of 2 - Risk Bexsero 2-dose series)[facility] Institutetart: 49-64-5424Bukoh microalbumin profileDTAP,TDAP,TD (1 - Tdap)[facility] Institutetart: 2009 COVID-19 VACCINE (#1)[facility] HospitalAmphetamines [Presence] in UrineKindred Healthcare Work Phone: Bacteria identified in Blood by CultureOhiohealth Arthur G.H. Bing, Md, Cancer CenterBacteria identified in Urine by CultureOhiohealth Arthur G.H. Bing, Md, Cancer CenterBacteria identified in Urine by CultureOhiohealth Arthur G.H. Bing, Md, Cancer CenterBarbiturates [Presence] in UrineKindred Healthcare Work Phone: Basophils [#/volume] in Blood by Automated count [facility] CenterBasophils/100 leukocytes in Blood by Automated countOhiohealth Arthur G.H. Bing, Md, Cancer CenterBenzodiazepines [Presence] in Urine [facility] Work Phone: Bilirubin measurement, urineKindred Healthcare Work Phone: Cannabinoids [Presence] in Urine by Screen method [facility] Work Phone: Chlamydia trachomatis DNA [Presence] in Unspecified specimen by JANAK with probe detectionOhiohealth Arthur G.H. Bing, Md, Cancer CenterChlamydia trachomatis rRNA [Presence] in Cervix by JANAK with probe detectionOhiohealth Arthur G.H. Bing, Md, Cancer CenterChoriogonadotropin ( test) [Presence] in Urine [facility] Work Phone: Cocaine [Presence] in UrineKindred Healthcare Work Phone: Color of UrineKindred Healthcare Work Phone: Detection of hemoglobinKindred Healthcare Work Phone: Eosinophils/100 leukocytes in Blood by Automated count [facility], Cancer CenterErythrocyte distribution width [Ratio] by Automated countOhiohealth Arthur G.H. Bing, Md, Cancer CenterErythrocytes [#/volume] in Blood [facility], Cancer CenterGlucose [Mass/volume] in Urine by Test strip [facility] Work Phone: Hematocrit [Volume Fraction] of [facility] HospitalHemoglobin [Mass/volume] in [facility] HospitalHomogenous nuclear Ab pattern [Titer] in [facility] Work Phone: [place] papilloma virus 16+18+31+33+35+39+45+51+52+56+58+59+66+68 DNA [Presence] in Cervix by Probe with signal amplificationOhiohealth Arthur G.H. Bing, Md, Cancer CenterHuman papilloma virus 16+18+31+33+35+39+45+51+52+56+58+59+68 DNA [Presence] in Cervix by Probe with signal amplificationOhiohealth Arthur G.H. Bing, Md, Cancer CenterLeukocytes [#/volume] corrected for nucleated erythrocytes in Blood by Automated counOhiohealth Arthur G.H. Bing, Md, Cancer CenterLeukocytes [#/volume] in [facility] HospitalLymphocytes [#/volume] in Blood by Automated [facility] HospitalLymphocytes/100 leukocytes in Blood by Automated [facility] HospitalMCH [Entitic mass] by Automated [facility] HospitalMCHC [Mass/volume] by Automated [facility] HospitalMCV [Entitic volume] by Automated [facility] Measurement of ketones in urine using dipstickTrumbull Regional Medical Center Ctr Work Phone: Monocytes [#/volume] in Blood by Automated count [facility], Cancer CenterMonocytes/100 leukocytes in Blood by Automated countOhiohealth Arthur G.H. Bing, Md, Cancer CenterNeisseria gonorrhoeae DNA [Presence] in Unspecified specimen by JNAAK with probe detectionOhiohealth Arthur G.H. Bing, Md, Cancer CenterNeisseria gonorrhoeae rRNA [Presence] in Cervix by JANAK with probe detectionOhiohealth Arthur G.H. Bing, Md, Cancer CenterNeutrophils [#/volume] in Blood by Automated countOhiohealth Arthur G.H. Bing, Md, Cancer CenterNeutrophils/100 leukocytes in Blood by Automated [facility] HospitalNuclear Ab [Titer] in [facility] Work Phone: Nucleated erythrocytes [Presence] in Blood by Automated [facility] HospitalPatient [facility] Work Phone: Patient referralTrumbull [facility] Work Phone: Phencyclidine [Presence] in UrineTrumbull Regional Medical [facility] Work Phone: Platelet mean volume [Entitic volume] in Blood by Automated countOhiohealth Arthur G.H. Bing, Md, Cancer CenterPlatelets [#/volume] in Blood [facility], Cancer CenterProtein measurement, urineTrumbull [facility] Work Phone: [phone]-DdB-2 (COVID-19) N gene [Presence] in Respiratory specimen by JANAK with probe detectionTrumbull Regional Medical Center [facility]tr Work Phone: Trichomonas vaginalis DNA [Presence] in Unspecified specimen by JANAK with probe detectionOhiohealth Arthur G.H. Bing, Md, Cancer CenterUrinalysis, specific gravity measurementTrumbull Regional Medical Center [facility]tr Work Phone: Urine cultureUrine CultureOhiohealth Arthur G.H. Bing, Md, Cancer CenterUrine cultureOhiohealth Arthur G.H. Bing, Md, Cancer CenterUrine dipstick for nitrite [facility] Work Phone: Urine dipstick for specific gravityTrumbull Regional Medical Center [facility] Work Phone: Urine pH testTrumbull Regional Medical Center [facility]tr Work Phone: Urobilinogen concentration, test strip measurement [facility] Work Phone: [facility] Immunizations Immunization DateImmunizationNotesCare [id number] toxoid, reduced diphtheria toxoid, and acellular pertussis vaccine, adsorbedServices [facility] Work Phone: [facility]02-10-2017Human Papillomavirus 9-valent vaccineThomas Olexa Other [employer] Other [id number], unspecified formulationServices [facility] Work Phone: [facility]10-10-2016influenza, injectable, quadrivalent, preservative freeThomas Olexa Other [facility]10-10-2016Human Papillomavirus 9-valent vaccineThomas Olexa Other [employer] Other [id number], unspecified formulationServices [employer] Work Phone: [facility]08-04-2016human papilloma virus vaccine, quadrivalentThomas Olexa Other [facility]08-04-2016 meningococcal polysaccharide (groups A, C, Y and W-135) diphtheria toxoid conjugate vaccine (MCV4P)Colten Olexa Other [facility]08-04-2016tetanus toxoid, reduced diphtheria toxoid, and acellular pertussis vaccine, adsorbed Colten Olexa Other [facility]10-05-2015influenza, injectable, quadrivalent, preservative freeThomas Olexa Other [facility]09-22-2014influenza, injectable, quadrivalent, contains preservativeServices [employer] Work Phone: [facility]09-22-2014influenza, injectable, quadrivalent, preservative freeThomas Olexa Other [employer] Other [id number], seasonal, injectable, preservative freeThomas Olexa Other [facility] Payers DatePayer CategoryPayerPolicy [id number]-pay2019MedicaidCARESOURCE MEDICAID [facility] MEDICAID [id number] 2019-Present [phone] [address] [place] [address] [id number] .1.859540.3.57[id number] 2.16.840.1.086028.3.57[id number] 2.840.1.287862.3.57[id number] 2.840.1.638540.3.57[id number] 2.0.1.721042.3.57[id number] 2.0.1.505668.3.57[id number] 2.0.1.682009.3.57[id number] 2.0.1.643830.3.57[id number] 2.0.1.249095.3.57[id number] 2..1.289569.3.57[id number] 2.0.1.665566.3.57[id number] 2..1.929189.3.57[id number] 2.840.1.361788.3.579.2.593 [id number] [id number] [id number]-[id number] 243u400x-[id number] 46pe65gb-49gw-8p72-[id number] 2.16.840.1.8[id number] 2..0.1.439251.3.579.2.531 [id number] 2..0.1.2[id number] 2..0.1.9[id number] 2.0.1.737573.3.579.2.531 Social History DateTypeDetailFacilityStart: 10-09-2021 End: 60-00-5431Mvyrrya smoking status NHISNever smoked tobaccoB[facility] Start: 10-47-8536Pfltxae use and exposureSmokeless tobacco non-userRiverview Health Institutetart: 60-45-9856Rzuyoxe intakeLifetime non-drinker (finding)[facility] Institutetart: 39-22-5035Evxtbwi SDOH Alcohol Bnmumfbrb5Bttzztiyc ClinicStart: 15-13-9483Cny Assigned At BirthNot on fileRiverview Health Institutetart: 06-09-2022 End: 34-15-1324Ygnmqim smoking status NHISSmoker (finding)[facility] Hospitaltart: 51-79-4527Apr Assigned At BirthFemalWood County Hospitaltart: 08-18-2022 End: 16-81-8767Vwtbqjr smoking status NHISCurrent some day smokerGenesis Hospitaltart: 62-51-1922Aqaxyyo smoking status NHISEx-smoker (finding)[facility] Hospitalex [facility]igned [facility] HospitalTobacco smoking statusNeVeterans Health Administrationtart: 01-24-2025 End: 43-83-3322YafGbmivy (finding)[facility], Cancer CenterNEGATED: Highlighted rowOhiohealth Arthur G.H. Bing, Md, Cancer Center Medical Equipment Procedure CodeEquipment CodeEquipment Original TextEquipment IdentifierDates Arthroscopy, kneeTendon/ligament bone anchor, non-bioabsorbable ()[id number] FDAStart: 81-99-6195Qsmsqmwdzeq, knee Soft-tissue/mesh anchor, non-bioabsorbable()[id number] FDAStart: 23-75-0269Sylvvxxmvnf, kneeTendon/ligament bone anchor, bioabsorbable ()[id number] FDAStart: 05-25-2023 Goals DatePatient GoalDesired Activity/State Functional Status CjywUxlkdutzjiIzqobvSfbzkcdh58-06-2521Ncnzrwncqk StatusN/[facility]09-02-2024Functional StatusN/[facility]04-18-2024 Functional StatusN/[facility]04-16-2024Functional StatusN/A [facility]02-10-2023Functional statusPatient at Baseline [facility] Work Phone: [phone]kcxp statusPatient at Baseline [facility] Work Phone: [phone] statusPatient at Baseline [facility] Work Phone: Mental Status OkoyMhmyxqfryyXsoygvPcmarjuk37-65-9167Gupkynoke functionPatient at Baseline [facility] Work Phone: [phone]phodsa functionPatient at Baseline [facility] Work Phone: [phone]nblpqk functionPatient at Baseline [facility] Work Phone: Clinical Notes 09-28-2015 to 08-22-2025 Note Date & RlqdWbdpZolijisc25-28-0925 NoteED Patient Education Note Gastroenterology Nausea and Vomiting, [...] you are able. Clear fluids include water, icechips, low-calorie sports drinks, and fruit juice that has water added (diluted fruit juice). ??? Eat bland, bsan-np-rdsznl foods in small amounts as you are able. These foods include bananas, applesauce, rice, lean meats, toast, and crackers. ??? Avoid fluids that contain a lot of sugar or caffeine, such as energy drinks, sports drinks, andsoda. ??? Avoid alcohol. ??? Avoid spicy or fatty foods. General instructions ??? Take ifxt-cel-rrfkqyd and prescription medicines only as told by your health care provider. ??? Drink enough fluid to keep your urine pale yellow. ??? Wash your hands often using soap and water for at least 20 seconds. If soap and water are not available, use hand ancient art curator. ??? Make sure that everyone in your [...] and drinking to prevent dehydration. ??? Take mnrm-shn-eriwqtf and prescription medicines only as told by [...] Document Reviewed: 05/21/2022 Elsevier Patient Education ? 2023 [employer]. Obstetrics and Gynecology Hyperemesis Gravidarum Hyperemesis gravidarum is [...] is not known. It may be associated (more content not included)...[facility]02-19-2025 Hospital Discharge instructions Patient Education 01/16/2025 20:36:16 RICE Therapy [...] health care provider about how you should limityour activities and whether you should start fjkjb-ur-gptoji exercises for your injury. Ice Ice your [...] If possible, elevate your injured area at orabove the level of your heart or the center of your chest. Contact a health care provider if: Your pain and swelling continue. Your symptoms are getting worse rather than improving. Having these problems may mean that you need further evaluation or imaging tests, such as X-rays acacia MRI. Sometimes, X-rays may not show a small broken bone (fracture) until days after the injury happened. Make a follow-up appointment with your health care provider. Ask your health care provider,or the department that is doing the imaging test, when your results will be ready. Get help right away if: You have sudden severe pain at or below the area of your injury. You have redness or increased swelling around your injury. You have tingling or numbness at or below the area of your injury and it does not improve after youremove the elastic bandage. Summary The routine care [...] provider. Document Revised: 2021 Document Reviewed: 08/04/2018 [employer] Patient Education 2020 [employer]. 01/16/2025 20:36:16 Contusion Contusion A contusion is a deep bruise. Contusions are the result of a blunt injury to tissues and muscle fibers under the skin. The injury causes bleeding under the skin. The skin over the contusion may turn blue, purple, or yellow. Minor injuries will give you a painless contusion, but more severe injuriescause contusions that can stay painful and swollen for a few weeks. Follow these instructions at home: Pay attention to any changes in your symptoms. Let your health care provider know about them. Take these actions to relieve your pain. Managing pain, stiffness, and swelling Use resting, icing, applying pressure (compression), and raising (elevating) the injured area. Thisis often called the RICE method. ?Rest the [...] your heart while you are sitting or lyingdown. General instructions Take bbno-rqt-hmfutei and prescription medicines only as told by [...] provider. Document Revised: 05/02/2023 Document Reviewed: 05/02/2023 [employer] Patient Education 2023 [employer]. 01/16/2025 20:36:16 Fall Prevention in the Home, Adult, Hsto-ck-Orhg Fall Prevention in the Home, Adult Falls [...] Keep items that you use often in jvfj-ov-xxbws places. Lower the shelves around your home [...] of the way. Do not use floor vietnamese or wax that makes floors slippery. What [...] Disease Control and Prevention, STEADI: cdc.gov [place] on Aging: jacob.nih.gov [place] on Aging: jacob.nih.gov Contact a doctor if: [...] provider. Document Revised: 07/18/2023 Document Reviewed: 07/18/2023 [employer] Patient Education 2023 [employer]. Follow Up Care 01/16/2025 17:51:58 With:MODESTA CHAND Address: [address] [place] [phone] Business (1) When:2025 20:14:58 Comments:Call Dr for diagnosis based follow up [facility] 02-19-2025 NoteED Patient Education Note Caregiving Fall Prevention in [...] Keep items that you use often in ptnz-xr-ffztd places. Lower the shelves around your home [...] the way. ??? Do not use floor vietnamese or wax that makes floors slippery. What [...] or ice melter on paths if you livewhere there is ice and snow during the [...] Control and Prevention, ANASTACIO: cdc.gov ??? [place] on Aging: jacob.nih.gov ??? [place] on Aging: jacob.nih.gov Contact a doctor if: [...] symptoms will go away. (more content not included)...[facility]09-04-2024 NoteED Patient Education Note Gastroenterology Hypokalemia Hypokalemia means [...] such as yogurt. General instructions ? Take pqsg-jse-qlqkyjp and prescription medicines only as told by [...] get potassium through an IV and be monitoredin the hospital. This information is not intended to replace advice given to you by your health care provider. Make sure you discuss any questions you have with your health care provider. Document Revised: 07/29/2022 Document Reviewed: 07/29/2022 [employer] Patient Education ? 2023 Elsevier Inc. Nausea and Vomiting, Adult Nausea is [...] that has water adde (more content not included)...[facility]09-03-2024 Hospital Discharge instructions Patient Education 07/30/2024 22:55:49 Nausea and [...] water added (diluted fruit juice). Eat bland, umoj-of-jtpvvz foods in small amounts as you are able. These foods include bananas, applesauce, rice, lean meats, toast, and crackers. Avoid fluids that contain a lot of sugar or caffeine, such as energy drinks, sports drinks, and soda. Avoid alcohol. Avoid spicy or fatty foods. General instructions Take dxpb-qtb-iidblqw and prescription medicines only as told by your health care provider. Drink enough fluid to keep your urine pale yellow. Wash your hands often using soap and water for at least 20 seconds. If soap and water are not available, use hand ancient art curator. Make sure that everyone in your household [...] eating and drinking to prevent dehydration. Take xjrl-zwp-bstqivd and prescription medicines only as told by [...] provider. Document Revised: 05/21/2022 Document Reviewed: 05/21/2022 [employer] Patient Education 2023 [employer]. Follow Up Care 07/30/2024 19:27:35 With:FAMILIA CHAND Address: [facility] [address] [address] Business (1) When:08/02/2024 [facility] 09-02-2024 NoteED Patient Education Note Gastroenterology Nausea and Vomiting, [...] added (diluted fruit juice). ? Eat bland, lhgz-aq-zxtvqf foods in small amounts as you are able. These foods include bananas, applesauce, rice, lean meats, toast, and crackers. ? Avoid fluids that contain a lot of sugar or caffeine, such as energy drinks, sports drinks, and soda. ? Avoid alcohol. ? Avoid spicy or fatty foods. General instructions ? Take bssa-udh-qkyvuno and prescription medicines only as told by your health care provider. ? Drink enough fluid to keep your urine pale yellow. ? Wash your hands often using soap and water for at least 20 seconds. If soap and water are not available, use hand ancient art curator. ? Make sure that everyone in your [...] and drinking to prevent dehydration. ? Take wvan-emb-zyauked and prescription medicines only as told by [...] provider. Document Revised: 05/21/2022 Document Reviewed: 05/21/2022 [employer] Patient Education ? 2023 [employer].[facility] 07-30-2024 Evaluation + Plan noteExtracted from:Title:ED NoteAuthor:Dustin Villalobos DO.Date:07/30/24 AP (abdominal pain) (R10.9: Unspecified abdominal pain) [...] Stop date 07/30/24 20:01:00 EDT, STAT, Start date07/30/24 20:01:00 EDT, 07/30/24 20:01:00 EDT ondansetron, 4 mg = 1 tab(s), Oral, q8hr, PRN Nausea/Vomiting, # 16 tab(s), Refills(s) 0, Pharmacy:[facility]/pharmacy #[id number], 157, cm, 07/30/24 19:37:00 EDT, Height/Length Dosing, 96.1, kg, 07/30/24 19:37:00 EDT, Weight Dosing promethazine, 12.5 mg = 1 tab(s), Oral, q8hr, PRN as needed for nausea/vomiting, second line, # 10 tab(s), Refills(s) 0, Pharmacy: [facility]/pharmacy #[id number], 157, cm, 07/30/24 19:37:00 EDT, Height/Length Dosing, 96.1, kg, 07/30/24 19:37:00 EDT, Weight Dosing promethazine, 12.5 mg = 1 supp, Rectal, q8hr, PRN as needed for nausea/vomiting, 3rd line, # 6 EA, Refills(s) 0, Pharmacy: [facility]/pharmacy #[id number], 157, cm, 07/30/24 19:37:00 EDT, Height/Length Dosing, 96.1, kg, 07/30/24 19:37:00 EDT, Weight Dosing promethazine 12.5 mg + Sodium Chloride 0.9% intravenous solution 50 mL, Injection, IV Piggyback, Once, Stop date 07/30/24 20:01:00 EDT, STAT, Start date 07/30/24 20:01:00 EDT, 151.5 mL/hr, Infuse over 20 minute(s) Sodium Chloride 0.9% intravenous solution, 1,000 mL, Soln-IV, IV, Once, Stop date 07/30/24 20:01:00EDT, STAT, Start date 07/30/24 20:01:00 EDT, Infuse over 61, minute(s) Basic Metabolic Panel CBC w/ Auto Diff eGFR Hepatic Function Panel Lipase Level Magnesium Level Saline Lock Insert [facility] 04-18-2024 Hospital Discharge instructions Patient Education [...] careprovider. Do not use recreational drugs. Take kbdd-dsb-tkcbfqh and prescription medicines only as told by [...] provider. Document Revised: 06/08/2022 Document Reviewed: 06/08/2022 [employer] Patient Education 2022 [employer]. 03/15/2024 13:49:41 Nausea and Vomiting, Adult Nausea [...] water added (diluted fruit juice). Eat bland, gtjn-es-rtlxhv foods in small amounts as you are able. These foods include bananas, applesauce, rice, lean meats, toast, and crackers. Avoid fluids that contain a lot of sugar or caffeine, such as energy drinks, sports drinks, and soda. Avoid alcohol. Avoid spicy or fatty foods. General instructions Take xqqy-kvi-zkjfmgy and prescription medicines only as told by your health care provider. Drink enough fluid to keep your urine pale yellow. Wash your hands often using soap and water for at least 20 seconds. If soap and water are not available, use hand ancient art curator. Make sure that everyone in your household [...] eating and drinking to prevent dehydration. Take dgpq-zrx-plcwoek and prescription medicines only as told by [...] provider. Document Revised: 05/21/2022 Document Reviewed: 05/21/2022 [employer] Patient Education 2022 [employer]. Follow Up Care 03/15/2024 10:34:05 With:Kirk Serrano Address:Unknown When:03/22/2024 13:33:04 Comments:Make sure to follow-up with Dr. Serrano at the surgery clinic in 1 week as instructed. Return to the emergency room if you develop chest pain, shortness of breath or any symptoms. [facility]04-18-2024 Evaluation + Plan noteExtracted from: Title:ED NoteAuthor:August Bermudez M.D. HDate:03/15/24 1. Nausea and vomiting (R11. 2: Nausea [...] mL, Soln-IV, IV, Once, Stop date 03/15/24 10:54:00EDT, STAT, Start date 03/15/24 10:54:00 EDT, Infuse over 61, minute(s) CBC w/ Auto Diff Comprehensive Metabolic Panel CT Chest w/ Contrast eGFR Magnesium Level [facility]04-17-2024 Hospital Discharge instructions Patient Education 03/13/2024 22:27:59 Nausea and Vomiting, Adult, Ostt-zf-Xdhp Nausea and Vomiting, Adult Nausea is feeling [...] fruit juice). ?Low-calorie sports drinks. Eat bland, fiex-om-vnvzcf foods in small amounts as you are able, such as: ?Bananas. ?Applesauce. ?Rice. ?Low-fat (lean) meats. ?[place]. ?Crackers. Avoid drinking fluids that have a lot of sugar or caffeine in them. This includes energy drinks, sports drinks, and soda. Avoid alcohol. Avoid spicy or fatty foods. General instructions Take ydux-tul-aheeirk and prescription medicines only as told by your doctor. Drink enough fluid to keep your pee (urine) pale yellow. Wash your hands often with soap and water for at least 20 seconds. If you cannot use soap and water, use hand ancient art curator. Make sure that everyone in your home [...] your doctor about eating and drinking. Take iuww-tch-fwrnwml and prescription medicines only as told by your doctor. Contact your doctor if your symptoms get worse or you have new symptoms. Keep all follow-up visits. This information is not intended to replace advice given to you by your health care provider. Make sure you discuss any questions you have with your health care provider. Document Revised: 05/21/2022 Document Reviewed: 05/21/2022 [employer] Patient Education 2022 [employer]. 03/13/2024 22:27:59 Muscle Strain, Ejyc-jg-Jlcg Muscle Strain A muscle strain, or pulled [...] is not too tight. General instructions Take zwcw-feo-wtybvmx and prescription medicines only as told by [...] provider. Document Revised: 02/01/2022 Document Reviewed: 02/01/2022 [employer] Patient Education 2022 [employer]. Follow Up Care 03/13/2024 17:33:30 With:MODESTA ARCHIBALD Address: [address] [place] [address] [phone] Business (1) When:03/16/2024 Comments:You can use the medications as prescribed as needed for pain, nausea. Please follow-up with your primary care doctor for further evaluation and management. Please return to the ED if you develop chest pain, difficulty breathing or if any concerning signs or symptoms. [facility]04-16-2024 Evaluation + Plan noteExtracted from: Title:ED NoteAuthor:Brandi Lang PA-Cte:03/13/24 1. Fall down stairs (W10.8XX A: Fall [...] Stop date 03/13/24 22:01:00 EDT, STAT, Start date03/13/24 22:01:00 EDT dexamethasone, 10 mg = 2.5 mL, Injection, IV Push, Once, Stop date 03/13/24 19:04:00 EDT, STAT, Start date 03/13/24 19:04:00 EDT, 03/13/24 19:04:00 EDT methocarbamol, 500 mg = 1 tab(s), Oral, TID, X 3 day(s), # 9 tab(s), Refills(s) 0, Pharmacy: [facility]/pharmacy #[id number], 160, cm, 03/13/24 17:38:00 EDT, Height/Length Dosing, 95.5, kg, 03/13/24 17:38:00 EDT,Weight Dosing morphine, 4 mg = 1 mL, Injection, IV Push, Once, Stop date 03/13/24 19:50:00 EDT, STAT, Start date 03/13/24 19:50:00 EDT, 03/13/24 19:50:00 EDT naproxen, 500 mg = 1 tab(s), Oral, BID, PRN for pain, # 20 tab(s), Refills(s) 0, Pharmacy: [facility]/pharmacy #[id number], 160, cm, 03/13/24 17:38:00 EDT, Height/Length Dosing, 95.5, kg, 03/13/24 17:38:00 EDT, Weight Dosing orphenadrine, 60 mg = 2 mL, Injection, IV Push, Once, Stop date 03/13/24 20:27:00 EDT, STAT, Start date 03/13/24 20:27:00 EDT, 03/13/24 20:27:00 EDT promethazine, 25 mg = 1 supp, Rectal, q6hr, PRN Nausea/Vomiting, # 6 EA, Refills(s) 0, Pharmacy: [facility]/pharmacy #[id number], 160, cm, 03/13/24 17:38:00 EDT, [...] 03/13/24 20:26:00 EDT, 153 mL/hr, Infuse over 20minute(s) Sodium Chloride 0.9% intravenous solution 1,000 mL, 1,000 mL, IV, 983.61 mL/hr, for 30 day(s), Stopdate 04/12/24 20:25:00 EDT, STAT, Start date 03/13/24 20:26:00 EDT, 61 minute(s), Total volume (mL): 1,000, 95.5 kg, 2.06, m2 XR Chest 2 Views [facility]07-06-2023 Evaluation note* Encounter Date Diagnosis Assessment Notes Treatment Notes Treatment Clinical Notes May, Displaced fracture o f right tibial spine, subsequent encounter for closed fracture with routine healing (ICD-10 - S82.111D) Maintain non weight bearing and knee immobilizer, may work on gentle motion exercise May,losed fracture of right tibial plateau with routine healing, subsequent encounter (ICD-10 - S82.141D) May,Other specified postprocedural states (ICD-10 - Z98.890) [employer] Other 06-27-2023 Evaluation note* Encounter Date Diagnosis Assessment Notes Treatment Notes Treatment Clinical Notes Apr, Other specified postprocedural s tates (ICD-10 - Z98.890) [facility] Other 06-26-2023 Evaluation note* Encounter Date Diagnosis Assessment Notes Treatment Notes Treatment Clinical Notes Apr, Closed fracture of r ight tibial plateau, initial encounter (ICD-10 - S82.141A) [...] pain for many months and potentially cause nursing home pain and stiffness. We have discussed the many potential complications of surgery including respiratory, cardiac, and patient positioning during anesthesia. The risks of DVT, scarring, long termpain, non union, hardware failure, development of arthritis and need for future surgery were all discussed. Patient is aware and would like to proceed. Advised patient she will be non weight bearing for at least 6 weeks post op. Advised she will be wallace hinged knee brace after surgery, with the flexion locked at no more than 15 degrees. Apr,losed displaced fracture of spine of right tibia, initial encounter (ICD-10 - S82.111A) Apr,re-op exam (ICD-10 - Z01.818) [place] Other 02-10-2023 History and physical note Author Eliana Bautista [facility] January 07, 2023 2:11amNote Date/TimeFebruary 2022 5:30pmJennifer Ville [id number] Hospitalist H&P Signed Patient: Pili Parikh MR#: [id number] : 2005 Acct:[id number] Age/Sex: 17 / F Adm Date: 3 Loc: Room: [address] [place] [address] Type: ADM INOo Attending Dr: Eliana Bautista MD Copies to: [facility] Anette FRANKY Stout MD~ HPI DATE OF EXAMINATION: 01/06/23 CHIEF COMPLAINT: Nausea/vomiting abdominal pain HISTORY OF PRESENT ILLNESS: Pili Parikh is an 17-year-old female with a past medical history of POTS syndrome, anxiety, depression, cannabis hyperemesis syndrome who presents to theemergency room for the second time this week with complaints of abdominal pain, nausea and vomiting. She was last seen in the ED on Tuesday whenshe came in with similar symptoms and was discharged from the ER with with promethazine. She however reports that despite taking promethazine her symptoms have not relieved. Prior to that she was seen and evaluated in the ED on 12/31 with complaints of nonproductive cough, myalgias and ongoing abdominal pain nausea and generalized weakness. She is reporting abdominal pain across her upper abdomenwhich she reports has been ongoing for about [...] No dysuria or retention. Reports slight headache, deniesdizziness. No fevers Upon arrival to the ER, [...] unless noted in the HPI or below [facility] Attestation Statement: The following information [...] nausea and vomiting 4 days #10 tabs 11/09/22[Rx Confirmed 01/06/23] promethazine 25 mg tablet 25 [...] % (Auto) 19.9 % (.) 01/06/23 14:20 Smith % (Auto) 7.4 % (.) 01/06/23 14:20 Eos % (Auto) 2.3 % (.) 01/06/23 14:20 Baso % (Auto) 0.3 % (.) 01/06/23 14:20 Nucleat RBC Rel Count 0.1 /100 WBC (0-0.5) 01/06/23 14:20 Neut # (Auto) 12.4 x10E3/uL (1.2-7.7) H 01/06/23 14:20 Lymph # (Auto) 3.5 x10E3/uL (1.20-4.8) 01/06/23 14:20 Smith # (Auto) 1.3 x10E3/uL (0.1-1.00) H 01/06/23 [...] pH 6.5 (5.0-9.0) 01/06/23 16:10 Ur Specific [place] 1.027 (1.001-1.030) 01/06/23 16:10 Urine Protein 100 [...] signed by Eliana Bautista MD> 01/07/23 0211 [facility] Work Phone: 1(858) 475-293609-24-2022 Progress note Author Gregorio Carey [facility] August 21, 2022 5:01pmNote Date/TimeSept2021 5:01pmCon[place] [address] Hospitalist Progress Note Signed Patient: Pili Parikh MR#: [id number] : 2005 Acct:[id number] Age/Sex: 17 / F Adm Date: 2 Loc: Room: [address] [place] [address] Type: ADM IN Attending Dr: Gregorio Carey DO Copies to: ~ Date of Service: 08/21/2022 Subjective Subjective Narrative: In the morning nursing staff told me that the patient had been in the shower at least 7 times sinceher admission. The morning report also was the patient had eaten all of her breakfast. Of course this was a limited clear liquid breakfast. Seen here at about suppertime the patient says that she has been able to keep her clear liquids down. She told nursing staff that she wanted something more normal than the clear liquid diet. She doesdescribe some mild esophageal regurgitation of bile-like liquids but not full-blown vomiting. She still has alot of discomfort. She recalls that the administrative liaison told her that in warm water against [...] the patient indicates that she is really onlyhad 1 liquid diarrhea and then maybe a smaller liquid bowel movement during this entire ordeal. We discussed marijuana use. She says that she began using that for her POTS. She describes that shedoes not use it very heavily. I did [...] 1 Gm/10 Ml Udc PO 08/22/23 06:59 TID.AC.[facility] A&P - Hospitalist Assessment/Plan (1) Intractable [...] eat sparingly and makesure she has no morevomiting. In the morning if no more vomiting can start Carafate liquid to reduce esophageal irritation from all of her vomiting. Recheck labs in the morning. Documented By: Gregorio Carey DO [id number] Signed By: <Electronically signed by Gregorio Carey DO> 08/21/22 1701 [facility] Work Phone: 1(503) 553-420509-23-2022 History and physical note Author Gregorio Carey [facility] August 20, 2022 8:17pmNote Date/TimeSeptember 2021 8:17pmCon[place] [address] Hospitalist H&P Signed Patient: Pili Parikh MR#: [id number] : 2005 Acct:[id number] Age/Sex: 17 / F Adm Date: 2 Loc: Room: [address] [place] [address] Type: ADM IN Attending Dr: Gregorio Carey DO Copies to: [facility] Gregorio Carey DO~ HPI DATE OF [...] positive for marijuana but was negative in and May 2018. In the ER yesterday [...] and dry heaving. She denies any rashes onher skin. She denies any other acute illnesses [...] % (Auto) 11.5 % (.) 08/20/22 16:21 Smith % (Auto) 3.7 % (.) 08/20/22 16:21 Eos % (Auto) 0.3 % (.) 08/20/22 16:21 Baso % (Auto) 0.4 % (.) 08/20/22 16:21 Neut # (Auto) 9.2 x10E3/uL (1.2-7.7) H 08/20/22 16:21 Lymph # (Auto) 1.3 x10E3/uL (1.20-4.8) 08/20/22 16:21 Smith # (Auto) 0.4 x10E3/uL (0.1-1.00) 08/20/22 16:21 [...] vomiting that was unsuccessfully treated by outpatient effortsincluding at least 3 ER visits over the last 2 days. Does have ongoing hypokalemia and hyponatremiadespite treatment in the ER multiple times. Does [...] for at least 6 hours and then tryagain. May shower. Discussed with her bedside nurse that I want to try a good clean-catch urine sample to compare to her urinalysis from yesterday. Recheck labs in the morning. May be able to replace potassium more vigorously if she can tolerate oral intake of food or liquids. Documented By: Gregorio Carey DO 2009 Signed By: <Electronically signed by Gregorio Carey DO> 08/20/222016 [facility] Work Phone: 1(435) 624-274006-19-2022 Miscellaneous Notes* Telephone Encounter - Luana Mak [...] if she can find a way to [facility], she will go there. Reason for Disposition Chest pain [1] Chest pain lasts > 5 minutes AND [2] described as crushing, pressure-like, or heavy Protocols used: ABDOMINAL PAIN - [id number], CHEST [id number]-PP [facility]2021 NoteHNO ID: [id number] Author: Rolando Wooten MD Service: ? Author [...] completed when applicable. PROCEDURE NOTE: IANDD right [employer] MECH[employer] Risks, benefits, personnel and alternatives were explained. The patient wished to proceed. S/he was re-identified and a time out obtained. PROCEDURE drainage right [employer] PREOPERATIVE DIAGNOSIS: right peritonsillar abscess POSTOPERATIVE DIAGNOSIS tonsillitis without pus in right peritonsillar area INDICATIONS: chronic right throat pain, worsening, concern for right [employer] MECHANIC at outside facility on scan . Drainage [...] there were no complication. MD Rolando [place], [facility]11-12-2021 NoteHNO ID: [id number] Author: Rolando Wooten MD Service: ? Author Type: Physician Type: Progress Notes Filed: 11/13/2021 1:09 AM Note Text: [place] [facility] Consult This consult was requested by [...] tonsillitis. 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 Medical Historyintermittent asthmaMedical Historylactose intoleranceMedical HistoryPOTS diag 09/2015Surgical Dsizuxahnvfvkdonjpp9624Tnfdcrtzplzlytq History strepthroat, uri, dehydration, otitis [id number] History nrgetwipfzx0660Mksaqgsqswrxudy [facility] [place] sjhiibtp08[place]16- Hospitalization History3 days vomitting blood01/2017Hospitalization History vomiting, abd pain, dehydration FR07/22-07/27/2017[facility] [employer] Other Evaluation noteNo assessment information available [facility] Work Phone: Evaluation note* Diagnosis Onset Date Resolution Status Nausea & vomiting acute [facility] Work Phone: Evaluation note* Diagnosis Onset Date Resolution Status Dehydration acuteHypokalemiaacuteIntractable nausea and vomitingacuteNausea & vomitingacute [facility] Work Phone: Evaluation note* Diagnosis Onset Date Resolution Status Abdominal pain acuteAcute hypokalemiaacuteChest painacuteDehydrationacuteHypokalemiaacute HypovolemiaacuteMallory-Cotton tearacuteNausea & vomitingacute [facility] Work Phone: History and physical note Author Eliana Bautista [facility] January 07, 2023 2:11amNote Date/TimeFebruary 2022 5:30pm[place] [address] Hospitalist H&P Signed Patient: Pili Parikh MR#: [id number] : 2005 Acct:[id number] Age/Sex: 17 / F Adm Date: 3 Loc: Room: [address] [place] [address] Type: ADM INOo Attending Dr: Eliana Bautista MD Copies to: [facility] FRANKY Starkey MD~ HPI DATE OF [...] last seen in the ED on Tuesday whenshe came in with similar symptoms and was discharged from the ER with with promethazine. She however reports that despite taking promethazine her symptoms have not relieved. Prior to that she was seen and evaluated in the ED on 12/31 with complaints of nonproductive cough, myalgias and ongoing abdominal pain nausea and generalized weakness. She is reporting abdominal pain across her upper abdomenwhich she reports has been ongoing for about [...] No dysuria or retention. Reports slight headache, deniesdizziness. No fevers Upon arrival to the ER, [...] unless noted in the HPI or below [facility] Attestation Statement: The following information [...] nausea and vomiting 4 days #10 tabs 11/09/22[Rx Confirmed 01/06/23] promethazine 25 mg tablet 25 [...] % (Auto) 19.9 % (.) 01/06/23 14:20 Smith % (Auto) 7.4 % (.) 01/06/23 14:20 Eos % (Auto) 2.3 % (.) 01/06/23 14:20 Baso % (Auto) 0.3 % (.) 01/06/23 14:20 Nucleat RBC Rel Count 0.1 /100 WBC (0-0.5) 01/06/23 14:20 Neut # (Auto) 12.4 x10E3/uL (1.2-7.7) H 01/06/23 14:20 Lymph # (Auto) 3.5 x10E3/uL (1.20-4.8) 01/06/23 14:20 Smith # (Auto) 1.3 x10E3/uL (0.1-1.00) H 01/06/23 [...] pH 6.5 (5.0-9.0) 01/06/23 16:10 Ur Specific [place] 1.027 (1.001-1.030) 01/06/23 16:10 Urine Protein 100 [...] signed by Eliana Bautista MD> 01/07/23 0211 [facility] Work Phone: Hospital course Narrative No data available for this section [facility] Dis[facility] instructions[facility] Work Phone: Hospital Discharge instructions Additional Instructions Follow-up with your primary care doctor Return to ED if develop worsening symptoms or concernsKindred Healthcare Work Phone: Hospital Discharge instructions Additional Instructions Follow-up with your primary care doctor Return to the ED if you develop worsening symptoms or concernsKindred Healthcare Work Phone: Hospital Discharge instructions Additional Instructions Take Phenergan as prescribed for nausea vomiting. Take Motrin and Tylenol as needed for muscle aches and pains. Take Carafate as prescribed.[facility] Work Phone: Hospital Discharge instructions Additional Instructions [...] you should first call your surgeon at [phone] for advice. If your are unable to contact your surgeon, seek help from a hospital emergency room. [facility] Work Phone: Hospital Discharge instructions Additional Instructions [...] with your family physician as soon as possible.[facility] Work Phone: Progress note No data available for this section [facility] CenterReason for referral (narrative)No reason for referral information availableTrumbull Regional Medical Center [facility]tr Work Phone: Summary Purpose Family History No Family History Records Found Relationship Condition Age at Onset Recorded Date/T marvin Not Specified Depression Unknown fatherDepressionUnknownfatherMalignant neoplasm of kidneyUnknownfatherDiabetes mellitusUnknownNot SpecifiedAnxietyUnknownNot SpecifiedFibromyalgiaUnknownNot SpecifiedEpilepsyUnknownNot SpecifiedMalignant neoplasm of cervixUnknown Relationship Condition Age at Onset Recorded Date/T marvin Not Specified Depression Unknown fatherDepressionUnknownfatherMalignant neoplasm of kidneyUnknownfatherDiabetes mellitusUnknownNot SpecifiedAnxietyUnknownNot SpecifiedFibromyalgiaUnknownNot SpecifiedEpilepsyUnknownNot SpecifiedMalignant neoplasm of cervixUnknownfamily memberMalignant neoplasm of cervixUnknownMalignant neoplasmUnknowngrandparent HypertensionUnknownNot SpecifiedMalignant neoplasmUnknown Relationship Condition Age at Onset Recorded Date/T marvin mother Depression Unknown fatherDepressionUnknownfatherMalignant neoplasm of kidneyUnknownfatherDiabetes mellitusUnknownmotherAnxietyUnknownmotherFibromyalgiaUnknownmotherEpilepsy UnknownmotherMalignant neoplasm of cervixUnknownauntMalignant neoplasm of cervix UnknownMalignant neoplasmUnknowngrandparentHypertensionUnknownmotherMalignant neoplasmUnknown Advance Directives No Advanced Directives Records Found [...] Miraine, n/v Vomiting vomiting vomiting headache abd painReason for VisitNausea & vomiting Chief Complaint R11.2 R19.5 R53.83 gen abd pain, hematemesis w/nausea, loose stools, gen abd pain, hematemesis w/nausea, loose stools, E55.9 R79.0 R53.83 Miraine, n/v Vomiting vomiting vomiting headache abd painReason for VisitDehydration Hypokalemia Intractable nausea and vomiting Nausea & vomiting Chief Complaint Miraine, n/v Vomiting vomiting vomiting headache abd pain R11.2 vomiting , chest painReason for VisitDehydration Hypokalemia Intractable nausea and vomiting Nausea & vomiting Chief Complaint Miraine, n/v Vomiting vomiting vomiting headache abd pain R11.2 vomiting , chest pain NAUSEA/VOMITTINGReason for VisitDehydration Hypokalemia Intractable nausea and vomiting Nausea & vomiting Chief Complaint Miraine, n/v Vomiting vomiting vomiting headache abd pain R11.2 vomiting , chest pain NAUSEA/VOMITTING vomitingReason for VisitDehydration Hypokalemia Intractable nausea and vomiting Nausea & vomiting Chief Complaint Miraine, n/v Vomiting vomiting vomiting headache abd pain R11.2 vomiting , chest pain NAUSEA/VOMITTING vomiting N/D/VReason for VisitDehydration Hypokalemia Intractable nausea and vomiting Nausea & vomiting Chief Complaint Miraine, n/v Vomiting vomiting vomiting headache abd pain R11.2 vomiting , chest pain NAUSEA/VOMITTING vomiting N/D/V n/vReason for VisitDehydration Hypokalemia Intractable nausea and vomiting Nausea & vomiting Chief Complaint vomiting , chest mira n NAUSEA/VOMITTING vomiting N/D/V n/v N/V Chief Complaint vomiting , chest mira n NAUSEA/VOMITTING vomiting N/D/V n/v N/V vomiting vomiting, dizzyReason for VisitAbdominal pain Acute hypokalemia Chest pain Dehydration Hypokalemia [...] m Unknown May 06, 2025 11:07 am Chief Complaint Admit Date Z34.80 Z34.01 August 28, 2025 3: 34pm Additional Source Comments INFORMATION SOURCE (unrecogn ized section and content) DATE CREATED AUTHOR 06/05/2018 [employer] DATE CREATED AUTHOR AUTHOR'S ORGANIZ ATION 07/14/2018 [facility]3] DATE CREATED AUTHOR AUTHOR'S ORGANIZ ATION 01/04/2022 [facility] DATE CREATED AUTHOR AUTHOR'S ORGANIZ ATION 02/02/2023 [facility] DATE CREATED AUTHOR AUTHOR'S ORGANIZ ATION 07/30/2024 [facility] DATE CREATED AUTHOR AUTHOR'S ORGANIZ ATION 08/02/2024 [facility] DATE CREATED AUTHOR AUTHOR'S ORGANIZ ATION 08/05/2024 [facility] DATE CREATED AUTHOR AUTHOR'S ORGANIZ ATION 01/18/2025 [facility] DATE CREATED AUTHOR AUTHOR'S ORGANIZ ATION 08/30/2025 [facility] DATE CREATED AUTHOR AUTHOR'S ORGANIZ ATION 08/31/2025 [facility] DATE CREATED AUTHOR AUTHOR'S ORGANIZ ATION 09/06/2025 [facility] Source Comments (unrecognize d section and content) In the event this informatio n is protected by the Federal Confidentiality of Alcohol and Drug Abuse Patient Records regulations: The Federal rules restrict any use of the information to criminally investigate or prosecute any alcohol or drug abuse patient.[facility] Reason for Visit (unrecogniz ed section and content) ReasonCommentsAbdominal Pain Care Teams (unrecognized sec tion and content) Team Status: Inactive Member Role Status Dates Services [facility] Primary Care Provider Ac latesha Chand PACKAGER OR PACKER AND WEIGHER-CAttending ProviderActive Team Status: Inactive Member Role Status Dates Services [facility] Primary Care Provider Active Modesta Chand NP-CAttenca ProviderActive Team Status: Inactive Member Role Status Dates Services [facility] Primary Care Provider Active Ulises Wiley ProviderActive Team Status: Inactive Member Role Status Dates Services [facility] Primary Care Provider Active Kahlil Gardiner ProviderActive Team Status: Inactive Member Role Status Dates Services [facility] Primary Care Provider Active Josh Lopezrjoy ProviderActive Team Status: Inactive Member Role Status [facility] Services [facility] Primary Care Provider Active Kahlil Saldaña ProviderActive Team Status: Inactive Member Role Status [facility] Primary Care Provider Active Kahlil David ProviderActive Team Status: Active Member Role Status [facility] Primary Care Provider Ac tive Team Status: Inactive Member Role Status [facility] Primary Care Provider Ac Nicci Spicer ProviderActive Team Status: Inactive Member Role Status [facility] Primary Care Provider Ac francove Stevie Arnold Jr ProviderActive Team Status: Inactive Member Role Status [facility] Primary Care Provider Ac francove Kahlil David ProviderActive Team Status: Active Member Role Status [facility] Primary Care Provider Ac Josh Rajputrjoy ProviderActiveGregorio Carey , DOAdmit Provider, Attending ProviderActive Team Status: Inactive Member Role Status [facility] Primary Care Provider Ac francove Josh Davidrjoy ProviderActiveGregorio Carey , DOAdmit Provider, Attending ProviderActive Team Status: Inactive Member Role Status [facility] Primary Care Provider Ac Kahlil Rai ProviderActive Team Status: Inactive Member Role Status Dates Art Bianchi DO Emergency Provider Active [facility] ProviderActive Team Status: Inactive Member Role Status [facility] Primary Care Provider Ac Kahlil Hilliard ProviderActive Team Status: Inactive Member Role Status [facility] Primary Care Provider Ac latesha Bianchi DOKenarjoy ProviderActive Team Status: Inactive Member Role Status [facility] Primary Care Provider Active Stevie Munoz ProviderActive Team Status: Active Member Role Status [facility] Services [facility] Primary Care Provider Active Team Status: Inactive Member Role Status [facility] Primary Care Provider Active Kahlil Houston ProviderActive Team Status: Active Member Role Status [facility] Primary Care Provider Active Sejal Torres ProviderActiveSuzette Torrez Provider, Attending ProviderActive Team Status: Inactive Member Role Status Dates Services [facility] Primary Care Provider Active Sejal Torres ProviderActiveSuzette Torrez Provider, Attending ProviderActive Team Status: Inactive Member Role Status Dates Services [facility] Primary Care Provider Active Ulises Nugent ProviderActive Team Status: Inactive Member Role Status Dates Services [facility] Primary Care Provider Active Start: March 18, 2024 End: March 19, 2024Stevie Enamorado ProviderActiveStart: March 18, 2024 End: March 19, 2024 Team Status: Inactive Member Role Status Dates Services [facility] Primary Care Provider Active Start: August 03, 2024 End: August 04Stevie Irving ProviderActiveStart: August 03, 2024 End: August 04, 2024 Team Status: Active Member Role Status Dates Services [facility] Primary Care Provider Active Start: October 28, 2024 Dipak Weston ProviderActiveStart: October 28, 2024 Team Status: Inactive Member Role Status Dates Services [facility] Primary Care Provider Active Start: October 28, 2024 End: October 29rtSejal Ashraf ProviderActiveStart: October 28, 2024 End: October 29, 2024 Team Status: Inactive Member Role Status Dates Makayla Monk DO Attending Provider Active Sta rt: January 23, 2025 End: January 23, 2025 Team Status: Inactive Member Role Status Dates Jasmeet Dahl MD Attending Provider Active Sta rt: May 04, 2025 End: May 04, 2025 Team Status: Inactive Member Role Status Dates Drew Steinberg MD Attending Provider Active St art: May 06, 2025 End: May 06, 2025 Team Status: Active Member Role Status Dates PHYSICIAN NO FAMILY Primary Care Provider Active Team Status: Inactive Member Role Status Dates PHYSICIAN NO FAMILY Primary Care Provider Active Start: August 28, 2025 End: August 28, 2025FRANKY Lassiter-BCAttending ProviderActive Start: August 28, 2025 End: August 28, 2025 Goals (unrecognized section and content) Goals [...] BE BASED ON THE PRIMARY CLINICAL RECORDS. [employer] [facility]. provides no warranty or guarantee of the accuracy or completeness of information in this document.
== END 2025-09-20 13:49 | disposition home or self-care (01) ==
LOC: US 13:48
DX: Z34.81 Encounter for supervision of other normal pregnancy, first trimester (principal); Z3A.09 9 weeks gestation of pregnancy
CPT/HCPCS: 76801

== ENCOUNTER 2025-10-10 06:37 | Emergency (ER) | payer OTHER, SELFPAY ==
--- OUTSIDE RECORDS SUMMARY | 2024-04-30 05:30 | XMS_ITS ---
Author Organization [employer] [facility] Address [address] [place] [address] Care Team Providers Care Range Examiner Name Role Phone Modesta Lira Primary Care Provider [phone] Kelsey Espino Unavailable [phone] Divina Bronson Unavailable [phone] REASON FOR VISIT PROPHY. BW'S Social History Sex Assigned At : Social History Observation Description Sex Assigned At Female Encounters Encounter Location Date Provider Diagnosis [address] [facility] [place] [address] 04/30/2024 Divina Bronson Plan Of Treatment No Information Progress Notes * PILI SEGURA ADOB: [birth year] (20 yo F)Acc No.[id number]:04/30/2024 Patient:?PILI SEGURA Hoa :?Divina HarmonDOB:2005???Age:19 Y???Sex: FemaleDate:04/30/2024hone:[phone]:[facility] [facility] [place], [id number]:Modesta Lira Subjective: * Chief Complaints: * P ROPHY. BW'S Billing Information: * Procedure Codes: * Electronic signature of Divina Bronson on 10/10/2025 at 07:08 AM ESTSign off status: Pending * Provider: Trinidad Hayes Date: 0 04/30/2024 Generated for Printing/Faxing/eTransmitting on:?10/10/2025 07:08 AM EST
--- OUTSIDE RECORDS SUMMARY | 2025-01-30 08:00 | XMS_ITS ---
Author Organization [employer] es Address [address] [place] [address] Care Team Providers Care Business Machine Mechanic Name Role Phone Modesta Lira Primary Care Provider Kelsey Espino Unavailable [phone] Modesta Chand Unavailable REASON FOR VISIT Pots disease, vomiting Social History Sex Assigned At : Social History Observation Description Sex Assigned At Female Encounters Encounter Location Date Provider Diagnosis [facility] [address] [place] [address] 01/30/2025 Mdoesta Chand Plan Of Treatment No Information Progress Notes * COLTON PILI ADOB: [birth year] (20 yo F)Acc No.[id number]:01/30/2025 Progress Note Patient: PILI PENALOZA :?Modesta Chand CNPDOB:2005???Age:20 Y ???Sex:FemaleDate:01/30/2025Phone:[phone]:[facility] [place], [place]Pcp:Modesta Lira Subjective: * Chief Complaints: * P ots disease, vomiting * Electronic signature of Modesta Chand CNP on 10/10/2025 at 07:08 AM EST Sign off status: Pending * Provider: Jesus Chand CNP Date: 0 01/30/2025 Generated for Printing/Faxing/eTransmitting on:?10/10/2025 07:08 AM EST
--- OUTSIDE RECORDS SUMMARY | 2025-05-22 04:00 | XMS_ITS ---
Author Organization [employer] es Address [address] [place] [address] Care Team Providers Care Clearance Coordinator Name Role Phone Modesta Lira Primary Care Provider Kelsey Espino Unavailable [phone] REASON FOR VISIT nexplanon removal Social History Sex Assigned At : Social History Observation Description Sex Assigned At Female Encounters Encounter Location Date Provider Diagnosis [address] [place] [address] 05/22/2025 Kelsey Espino Plan Of Treatment No Information Progress Notes * PILI SEGURA ADOB: [birth year] (20 yo F)Acc No.[id number]:05/22/2025 progress note Patient: PILI PENALOZA A :?Kelsey ZhouOB:2005???Age:20 Y???Sex: FemaleDate:05/22/2025Phone:[phone]:[address] [facility], [place]Hck:Modesta Lira Subjective: * Chief Complaints: * N explanon removal Billing Information: * Procedure Codes: * Electronic signature of Kelsey Espino NP on 10/10/2025 at 07:08 AM ESTSign off status: Pending * Provider: Raf Espino Date: 0 05/22/2025 Generated for Printing/Faxing/eTransmitting on:?10/10/2025 07:08 AM EST
[2025-10-10 06:38] VITALS: PULSE 94; TEMP 37.1; O2SAT 100; BMI 41.6
[2025-10-10 06:43] VITALS: BP 117/88
[2025-10-10 06:51] VITALS: O2SAT 100
--- OUTSIDE RECORDS SUMMARY | 2025-10-10 07:08 | XMS_ITS | Clinical Summary ---
Author Organization [facility] Address [address] [place] [address] Care Team Providers Care Facility Practice Specialist Name Role Phone Unavailable Primary Care Provider Unavailabl e Social History Tobacco UseTypesPacks/DayYears UsedDateSmoking Tobacco: Never Assessed CommentsUnknownSex and Gender InformationValueDate RecordedSex Assigned at Not on fileLegal RiuEmmjso10/15/2023 7:10 PM EDTGender IdentityNot on fileSexual OrientationNot on file Last Filed Vital Signs Vital SignReadingTime TakenCommentsBlood Blvdfzhy670/7402/17/2022 12:00 PM EDT Pulse--Temperature--Respiratory Rate--Oxygen Saturation--Inhaled Oxygen Concentration--Shjqnu96 kg (161 lb)02/17/2022 12:00 PM MCFIujhko732.5 cm (5' 2 ) 02/17/2022 12:00 PM EDTBody Mass Index29.45002/17/2022 12:00 PM EDT Plan of Treatment Not on file Insurance
--- OUTSIDE RECORDS SUMMARY | 2025-10-10 07:08 | XMS_ITS | Patient Health Record ---
Author Organization [employer] es Address [address] [place] [address] Care Team Providers Care Secured Entrance Monitor Name Role Phone PankajModesta Primary Care Provider [phone] Kelsey Espino Unavailable [phone] Modesta Chand Unavailable [phone] Allergies Allergen (clinical drug ingredient) Drug/Non Drug Allergy documented on EMR Reaction Allergy Type Onset Date Status metoclopramide Reglan Facial Droop Drug Allergy Active Results Component Value Reference Range Notes US OB <= 14 weeks fetus Reviewed date:09/24/2025 12:42:06 PM Interpretation: Performing Lab: Notes/Report: 2GP Reviewed date:08/28/2025 02:48:29 PM Interpretation:glucose-negative, Protein-1+ Performing Lab: Notes/Report: glucose-negative, Protein-1+ Glucose + Protein glucose-negative, Protein-1+ IGP,Aptima HPV,CtNg Age Gdln Reviewed date:09/04/2025 01:13:01 PM Interpretation: Performing Lab:, [facility], [address] [place] Notes/Report: Viv Birmingham MD, [address] [place] [address] [place], [place] [address] 02 [facility] [place] Performed at: <-Panic Low,>-Panic High,A-Abnormal,AA-Critical Abnormal L-Low [...] is not a diagnostic procedure and [address] [facility] [address] detection of premalignant and malignant conditions of the 01 =G [facility] The Pap smear is a screening test designed to aid in the Performed at: Note: Note 02 . 02 <-Panic Low,>-Panic High,A-Abnormal,AA-Critical Abnormal Queta Lofton, Supervisory Mechanical Pencils Assembler (ASCP) L-Low Normal,H-High Normal,LL-Alert Low,HH-Alert High Performed by: 02 [employer]: [employer] Program Director: Viv Birmingham MD, Phone: [phone] Satisfactory for evaluation. No endocervical component is identified. [address] [place] [facility] [id number] Specimen adequacy: 02 Age Algo ACOG Geeta... 21-24 01 Performed at: [facility] NEGATIVE FOR INTRAEPITHELIAL LESION OR MALIGNANCY. No. of containers..01 ThinPrep Vial [employer] Program Director: Viv Birmingham MD, Phone: [phone] DIAGNOSIS: 02 Clinician Provided Cytology Information Specimen Comment: [id number] [address] [place] [address] Christiano Pemberton, EM[place] [id number] , unspeci Performed at: =[facility] TESTS RESULT FLAG UNITS REF RANGE LAB TESTS RESULT FLAG UNITS REF RANGE LAB Reason for Exam Encounter for supervision of other normalIGP, Age GdlnNote.Pap IGNote.PAP Chlamydia NAANegativeNegativePAP GonococcusNegativeNegativeOB Urine Drug Screen (NO THC) Reviewed date:08/30/2025 08:38:47 AM Interpretation: Performing Lab:, [facility], [address], [place] Notes/Report: , unspeci Reason for Exam Encounter for supervision of other normalAmphetamine Screen,UrineNegativeNegativeBarbiturate Screen,UrineNegativeNegative Benzodiazepines Screen,UrineNegativeNegativeCocaine Screen,UrineNegativeNegative Opiate Screen,UrineNegativeNegativePhencyclidine Screen, UrineNegativeNegative These are unconfirmed results and should not be used for legal purposes. Drug Cut-Off Concentration: AMPH 1000 ng/mL NIKOLAS 200 ng/mL SHRAVAN 200 ng/mL COCM 300 ng/mL OP 300 ng/mL PCP 25 ng/mL Urine Culture Reviewed date:08/30/2025 10:44:27 AM Interpretation: Performing Lab:, [facility], [address], [place] Notes/Report:Chlamydia/GC/Trich JANAK Reviewed date:09/02/2025 12:54:19 PM Interpretation: Performing Lab:, [facility], [address], [place] Notes/Report: Reason for Exam Encounter for supervision of other normal , unspeci Specimen Comment: A duplicate report has been generated due to demographic Specimen Comment: updates.Chlamydia Trachomotis, NAANegativeNegativeNeisseria Gonorrhoeae, NAANegativeNegativeTrichomonas NAANegativeNegative Performed at: =[facility] [place] [id number] [employer] Program Director: Viv Birmingham MD, Phone: [phone] 1st Trimester Reviewed date:08/27/2025 01:34:03 PM Interpretation:see attached Performing Lab: Notes/Report: see attached Reason For Referral No Information Medications Medication [...] IM Intramuscular 12/04/2020 Administered Influenza 3+ PRIVATEIM Xspffhdbnhmrv04/07/2021AdministeredMeningococcal (MENACTRA)IM Ncnhgwdmxxfwr84/07/2021AdministeredMENINGOCOCCAL BIM Intramuscular 1Administered Social History Tobacco Use: [...] a drink containing alcohol in the past year?TmQomnkc4WbkeknzcudlhfsEqpkhcclCwhzcdj Use:Social InfoQuestion AnswerNotesTobacco Control (Standard)Tobacco use:Former smoker? How long has it been since you last smoked?Less than 1 month Problems Problem Type SNOMED Code ICD Code Onset Dates Problem Status W/U Status Risk Notes Problem Severe mixed bipolar I disorder without psychotic features (96363853) Bipolar disorder, current episode mixed, severe, without psychotic features (F31.63) ActiveconfirmedProblemModerate recurrent major depression (02263415)Major depressive disorder, recurrent, moderate (F33.1)ActiveconfirmedProblemmigraine (disorder) (93131907)Migraines (G43.909)ActiveconfirmedProblemVitamin D deficiency (87590991)Vitamin D deficiency (E55.9)ActiveconfirmedProblem Amenorrhea (57909995)Amenorrhea (N91.2)ActiveconfirmedProblemPneumomediastinum (50478386)Pneumomediastinum (J98.2)ActiveconfirmedProblemDifficulty sleeping (122059140)Sleep difficulties (G47.9)ActiveconfirmedProblemInsomnia (495460371) Insomnia, unspecified type (G47.00)ActiveconfirmedProblemPosttraumatic stress disorder (10044439)PTSD (post-traumatic stress disorder) (F43.10)Activeconfirmed ProblemIntermenstrual bleeding - irregular (99503180)Menorrhagia with irregular cycle (N92.1)ActiveconfirmedProblemHistory of psychiatric disorder (624023671) History of posttraumatic stress disorder (PTSD) (Z86.59)ActiveconfirmedProblem Irregular periods (23122779)Irregular periods/menstrual cycles (N92.6)Active confirmedProblemSocial anxiety disorder (03749547)Social anxiety disorder (F40.10)ActiveconfirmedProblemMajor depression, single episode (60408710) Depression, acute (F32.9)ActiveconfirmedProblemPostural orthostatic tachycardia syndrome (disorder) (227615790)POTS (postural orthostatic tachycardia syndrome) (I49.8)Activeconfirmed Vital Signs Heart Rate 93 /min 08/21/2025 Lodtcgcpkbm60 degrees Ulostnuxza94/24/2025Respiratory Rate20 /min08/21/2025 Eskaeoiy03 %08/21/2025lood pressure ipdkrovzd85 mm Hg08/21/20254988Qgbjdq33.5 in 08/21/2025lood pressure evinekla847 mm Hg08/21/20253244Pxpidw964 lbs08/21/2025MI 35.99 kg/m208/21/2025 Encounters Encounter Location Date Provider Diagnosis [facility] [address] [place] [address] 09/03/2025 [facility] [place] [address]/ [address] [place] [address]/11/2024[address] [place] [address]/06/2025[facility] [place] [address]/[address] [place] [address]/[facility] [place] [address]/08/2025[facility] [place] [address]/[facility] Amenorrhea N91.2 and Nausea and vomiting, unspecified vomiting type R11.2[facility] [place] [facility] [place] [address]/[facility] ManniePOTS (postural orthostatic tachycardia syndrome) I49.8 ; Nausea and vomiting, unspecified vomiting type R11.2 ; Migraines G43.909 ; Sleep difficulties G47.9 and Hyperkalemia E87.5[facility] [place] [address]/Jennifer KearneyInsomnia, unspecified type G47.00 ; Hypokalemia E87.6 and Skin burn T30.0[address] [place] [address]/[facility] Nexplanon removal Z30.46 and control counseling Z30.9[facility] [place] [address]/11/2024[facility] for supervision of other normal , unspecified [...] new OB visit next week to discuss [facility] care. Patient agreeable and verbalizesunderstanding. 08/28/2025Encounter for supervision of other normal , unspecified trimester (ICD-10 - Z34.80)05/22/2025[facility] for Nexplanon removal (ICD-10 - Z30.46)Discussed risks of procedure with patient which included [...] advised until conception is desired. Patient verbalized understanding.05/22/2025irth control counseling (ICD-10 - Z30.9)Discussed control options today in office. Pt declines and would like to use natural family planning at this time.05/13/2025 Hypokalemia (ICD-10 - E87.6)CMP ordered and drawn today. Will call patient with abnormal results. Increase fluids slowly advance diet as tolerated. All questions and concerns addressed.05/13/2025Insomnia, unspecified type (ICD-10 - G47.00)May restart Trazadone for sleep. Continue to refrain from marijuana. All questions and concerns addressed. Follow up in 3 months.08/21/2025Nausea and vomiting, unspecified vomiting type (ICD-10 - R11.2)Discussed taking OTC B6, B12 daily and Unisom at bedtime to help with symtpoms. Discussed treatments for nausea including natalie trista, peppermint, sea band, etc. Discussed if unable to keep fluids down for > 12 hours to go to ER. Patient verbalizes understanding. 01/25/2025POTS (postural orthostatic tachycardia syndrome) (ICD-10 - I49.8)Hx of POTS pt also has been having n/v and now some diarrhea. Pt has been to ER mult times for her complaints but starting to feel somewhat better. Note given to cover all of her days missed from plz44mm through to today.01/25/2025Nausea and vomiting, unspecified vomiting [...] next few days or worsening of symptoms. 01/25/2025Migraines (ICD-10 - G43.909)Pt reports headache and requests Toradol shot. Given to pt by MA. Alicia yousif.05/13/2025Skin burn (ICD-10 - T30.0)Avoid allowing hot water on back. Instructed to use aloe and a moisturizing cream. Follow up if develop purulent drainage or pain from the burned area. All quesitons and concerns addressed.01/25/2025Sleep difficulties (ICD-10 - G47.9) Will start patient [...] understanding, in agreement with plan.01/25/2025Hyperkalemia (ICD-10 - E87.5) Will get updated labs [...] 08/21/2025 Rubella Antibody, IgG 08/28/2025 US OB transvaginal 08/28/2025 HCG,Qualitative Rfx to Quant 08/21/2025 ABO/Rh 08/28/2025 BhCG Quant 08/28/2025 CBC w/ Auto Diff 08/28/2025 Hep A,B, C Panel 08/28/2025 Insurance Providers Payer Name Payer Address Payer Phone Subscriber Number Group Number Insured Name Patient Relationship to Insured Coverage Start Date Coverage End Date [employer] [place] Medicaid [address] [place] [phone] [id number] [employer] PILISelf - patient is the xexwkkt7001/05[facility]20[facility] CareSourcePO [address] [place] [id number], PILISelf - patient is the efzlsgo5412/29/2022zCARESOURCE-termed 12/28/22[address] [place] [id number], PILISelf - patient is the [facility]nefm42[facility] after [employer]termed 12/28/22[address] [place] [id number], TRINMARYSelf - patient is the [id number] [employer]-termed 12/28/22 [address] [place] [id number], TRINMARYSelf - patient is the rqwmnhu21zDental MEDICAID CFC after [employer]termed 12/28/22[address] [place] [phone] [id number], PILISelf - patient is the tnwlybz7211/28/2020 12/28/2022z [employer] 12/28/22[address] [place] [address] [id number], PILISelf - patient is the ygswaag0411/28/2022 12/28/2022zBH MEDICAID CFC after [employer] 12/28/[address] [place] [id number], PILISelf - patient is the aoxqexc96/ [facility] MedicaidPO [address] [place] [id number], TRINITYSelf - patient is the insured 12/29/2022 [facility] CareSourcePO [address] [place] [phone] [id number], TRINITYSelf - patient is the hmvsvse9712/29/2022[facility] OH[address] [place] [phone] [id number] SEGURA - patient is the qgfupnn1512/29/2022replaced by [facility] anson Wrap [facility] HealthcareePO [address] [place] [id number], TRINITYSelf - patient is the acikhqi0412/29/2022 Medications Administered Medication Instructions Date of Administration Dosage Notes TORADOL qKVEOTUDA22/24/01288.5 pGPZUXKXG28/15/20222 gKRXFSDOZ86/28/985121 mg Medical (General) History Medical History History ICD Code Abdominal Pain MigrainesPOTS Dx 2015Upper GI Bleed Requiring NG tube 2019AsthmaOvarian Cyst MenorrhagiaUTIMallory Cotton TearsEnvironmental AllergiesVitamin D Deficiency Pneumonia Age 5MenorrhagiaOverdose in Pediatric PatientSuicidal Thoughts Munchhausen syndrome by ProxyCOVID 19Bipolar DisorderTonsillar Abscess3.4 CM Ovarian CystHyperemesis gravidarumSurgical History Surgery Date(Month/Year) Appendectomy EGDHospitalization History Reason Date(Month/Year) N/V 07/2022 POTS see [id number]
--- OUTSIDE RECORDS SUMMARY | 2025-10-10 07:11 | XMS_ITS | CCD ---
Author Organization [facility] Care Team Providers Care Senior It Business Analyst Name Role Phone Calvin, Mere T [...] Unavailable Bumagina, Ana Luisa Unavailable Unavailable LoParo, Ardha Magy Unavailable Unavaila ble LoParo, Radha Magy Unavailable Unavaila ble LoParo, Radha Magy Unavailable Unavaila ble Bumagina, Ana Luisa Unavailable Unavailable Unavailable [facility] [phone] DO Art Bianchi Emergency Provider DO Ender Donovan Emergency Provider DO Gilda Arguellorick M Emergency Provider [phone] Matthew DO Gilson Emergency Provider [phone] MILY Chand Attending Pr ovider MD Brennen Britt Attending Provider [phone] [facility] Prov ider [facility] Primary Care Provider FRANKY Rivera Emergency Provider [phone] MD Colten Fry Jr Emergency Provider DO Matthew Gilson Emergency Provider Aurelio, DO Gregorio Admit Provider Aurelio DO Gregorio Attending Provider [phone] [facility] Prov ider FRANKY Rivera Emergency Provider MD Colten Fry Jr Emergency Provider Matthew DO Gilson Emergency Provider [phone] Aurelio DO Gregorio Admit Provider Aurelio, DO Gregorio Attending Provider MILY Chand Attending Pr ovider TuDO Gilda pittsrick M Emergency Provider [facility] Prov ider FRANKY Rivera Emergency Provider MD Colten Fry Jr Emergency Provider DO Matthew Gilson Emergency Provider Aurelio, DO Gregorio Admit Provider Aurelio DO Gregorio Attending Provider MILY Chand Attending Pr ovider DO Ravi Arguello Emergency Provider DO Art Bianchi Emergency Provider DO Robert Bolanos Emergency Provider [phone] [facility] Primary Care Provider MD Corey Newberry Emergency Provider [facility] Primary Care Prov ider DO Federico Randolph Emergency Provider KATE Damian Emergency Provider [phone] MD Eliana Bautista Admit Provider [phone] MD Eliana Bautista Attending Provider [phone] SANDRO, DR VU Primary Care Unavailable DALIA ., AUSTIN Admitting Unavailable DALIA ., AUSTIN Attending Unavailable DALIA ., [place]IN Consulting Unavailable DIAB ., IRWIN Admitting Unavailable ETHAN ., IRWIN Attending Unavailable SANDRO, DR VU Primary Care Unavailable KIA ARVIZU Consulting Unavailable ETHAN ., IRWIN Consulting Unavailable Colten Miller Unavailable [facility] Primary Care Provider MILY Chand Attending Pr ovider MD Colten Miller Attending Provider [facility] Primary Care Provider DO Ravi Arguello Emergency Provider MODESTA ARCHIBALD Primary Care Physician [facility] Primary Care Provider MD Femi Benitez Emergency Provider [phone] Cresencio Abel Attending Unavailable MODESTA ARCHIBALD Primary Care Unavailable MODESTA ARCHIBALD Primary Care Unavailable August Bermudez Attending Unavailable MODESTA ARCHIBALD Primary Care Unavailable DO Isaak Francis Attending Unavailable [facility] Primary Care Provider MD Ania Watson Emergency Provider MODESTA ARCHIBALD Primary Care Unavailable August Bermudez Attending Unavailable Cresencio Abel Attending Unavailable MODESTA ARCHIBALD Primary Care Unavailable MODESTA CHAND Primary Care Physician August Bermudez Attending Unavailable August Bermudez Attending Unavailable [facility] Primary Care Provider [phone] Rd Brown PA-C Emergency Provider Makayla Monk DO Attending Provider [phone] Jasmeet Dahl MD Attending Provider [phone] Drew Steinberg MD Attending Provider [phone] Federico Randolph Attending Unavailable August Bermudez Attending Unavailable Pradeep Guthrie Attending Unavailable Pradeep Guthrie Attending Unavailable NO FAMILY, PHYSICIAN Primary Care Provider Unava ilable Kelsey Espino APRN Attending Provider Makayla Monk Attending Unavailable Makayla Monk Admitting Unavailable Drew Steinberg Attending Unavailable Drew Steinberg Admitting Unavailable NO FAMILY, PHYSICIAN Primary Care Unavailable Kelsey Espino Attending Unavailable Kelsey Espino Admitting Unavailable [facility] Primary Care Unavaila Rd Marin Attending Unavailable Rd Brown Admitting Unavailable Jasmeet Dahl Admitting Unavailable Jasmeet Dahl Attending Unavailable Allergies Allergy ClassificationReported Allergen(s)Allergy TypeDate of OnsetReaction(s) Facility (16 sources)Haloperidol; Translations: [Haloperidol]Drug [id number] Unknown [facility] ([facility])Metoclopramide; Translations: [Metoclopramide]Drug [id number] Unknown (qualifier value)[facility] (6 sources)Haloperidol; Translations: [Haldol]Drug AllergyThe [facility] (6 sources)Iothalamate; Translations: [Reglan]Drug AllergyThe [facility] Medications Current Medications MedicationDrug Class(es)DatesSig (Normalized)Sig (Original)acetaminophen 325 mg / HYDROcodone bitartrate 5 mg oral tablet (20 sources)Opioid AgonistStart: 03-13-2024 End: 05-74-7256Egajc 325 mg-5 mg oral tablet 1 tab(s), Oral, q6hr for pain for 3 day(s), 7 tab(s), Refill(s) 0, [facility]/pharmacy #[id number], 160, cm, 03/13/24 17:38:00 EDT, Height/Length Dosing, 95.5, kg, 03/13/24 17:38:00 EDT, Weight Dosing Start Date: 03/13/24 Stop Date: 03/16/24 Status: OrderedStart: 43-21-9684npzi 15 mL by mouth every eight hours as needed for painHYDROcodone-acetaminophen (HYCET) 7.5- 325 mg/15 mL oral liquid Indications: Abscess, peritonsillar Take 15 mL by mouth every 8 hours as needed for pain. 120 mL 0 10/09/2021 ActiveStart: 12-15-2019 End: 60-76-6174bcdj 1 tablet by mouth every six hours as needed for pain Hydrocodone-Acetaminophen ([place]) 5-325 mg tablet Discontinued 1 TAB PO Q6H as needed for pain 6 2 December 15, 2019 December 31, 2019 1:37pmStart: 12-15-2019 End: 27-45-9918Oiyab: 04-20-2019 End: 87-90-0810schr 1 tablet by mouth every six hours as needed for pain Hydrocodone-Acetaminophen 5-325 mg Tablet Discontinued 1 TAB PO Q6H as needed for Pain 20 April 20, 2019 May 05, 2019 8:42pmStart: 04-20-2019 End: 66-87-2824Eevwb: 02-19-2019 End: 75-30-6251pbxm 1 tablet by mouth twice daily as needed for painHydrocodone- Acetaminophen ([place]) 5-325 mg tablet Discontinued 1 TAB PO Twice daily as needed for pain 6 February 19, 2019 March 08, 2019 3:53pmStart: 02-19-2019 End: 29-33-0183Zppcdeh on above:Take 15 mL by mouth every 8 hours as needed for pain.cephalexin 500 mg oral capsule (20 sources)Cephalosporin AntibacterialStart: 86-50-0177rmuy 1 capsule by mouth every eight hoursStart: 89-36-9592iaki 1 capsule by mouth every eight hours Cephalexin 500 MG 1 capsule Orally every 8 hrs for 2 days Apr, Active Start: 02-06-2022 End: 54-98-8838rsrs 1 tablet by mouth four times dailyCephalexin 250 mg tablet Discontinued 250 MG PO Four times daily 24 06February 06, 2022 1:00am 2021 8:15pmStart: 08-20-2021 End: 99-50-4867ujeg 1 capsule by mouth twice dailyCephalexin 500 mg capsule Discontinued 500 MG PO Twice daily August 20, 2021 12:00am September 05, 2021 11:25pmStart: 06-01-2021 End: 73-46-9836vlpe 2 capsules by mouth every twelve hoursCephalexin 500 mg Capsule Discontinued 1000 MG PO Q12H 40 June 01, 2021 12:00am July 19, 2021 2:07pmStart: 06-01-2021 End: 47-04-6479yyhw 1000 mg by mouth every twelve hoursCephalexin Discontinued 1000 MG PO Q12H 40 June 01, 2021 12:00am July 19, 2021 2:07pmStart: 06-01-2021 End: 85-63-2072Gmhvt: 04-14-2021 End: 68-42-1793slyy 2 capsules by mouth twice dailyCephalexin 500 mg capsule Discontinued 1000 MG PO Twice daily April 14, 2021 12:00am May 10, 2021 11:08amStart: 04-14-2021 End: 16-02-1672scig 1000 mg by mouth twice dailyCephalexin Discontinued 1000 MG PO Twice daily April 14, 2021 12:00am May 10, 2021 11:08amStart: 04-14-2021 End: 84-57-2441Hbton: 10-07-2020 End: 16-53-0204hwcv 1 capsule by mouth twice dailyCephalexin (Keflex) 500 mg capsule Discontinued 500 MG PO Twice daily 16 09October 07, 2020 1:00am January 12, 2021 1:34pmStart: 03-23-2018 End: 20-62-3757dojt 1 capsule by mouth four times dailyCephalexin (Keflex) 500 mg Capsule Discontinued 500 MG PO Four times daily 40 March 23, 2018 12:00am April 05, 2018 10:48pmStart: 03-23-2018 End: 16-93-7980nwkkboaizlenqal hydrochloride 5 mg oral tablet (1 source)Muscle RelaxantStart: 01-16-2025 End: 22-26-0424nnix 1 tablet by mouth three times dailycyclobenzaprine 5 mg Tab 5 mg = 1 tab(s), Oral, TID, X 7 day(s), # 21 tab(s), Refills(s) 0, Pharmacy: [facility]/pharmacy #[id number], 157, cm, 01/16/25 17:56:00 EST, Height/Length Dosing, 95, kg, 01/16/25 17:56:00 EST, Weight Dosing Start Date: 01/16/25 Stop Date: 01/23/25 Status: OrderedEtonogestrel (3 sources)ProgestinNexplanon Activemethocarbamol 500 mg oral tablet (2 sources)Muscle RelaxantStart: 03-13-2024 End: 41-73-1562hfzk 1 tablet by mouth three times dailyRobaxin 500 mg Tab 500 mg = 1 tab(s), Oral, TID, X 3 day(s), # 9 tab(s), Refills(s) 0, Pharmacy: [facility] /pharmacy #[id number], 160, cm, 03/13/24 17:38:00 EDT, Height/Length Dosing, 95.5, kg, 03/13/24 17:38:00 EDT, Weight Dosing Start Date: 03/13/24 Stop Date: 03/16/24 Status: Orderednaproxen 500 mg oral tablet (20 sources)Nonsteroidal Anti-inflammatory DrugStart: 64-73-4455zbih 1 tablet by mouth twice daily as needed for painnaproxen 500 mg Tab 500 mg = 1 tab(s), Oral, BID, PRN Pain, with food, # 20 tab(s), Refills(s) 0, Pharmacy: [facility]/pharmacy #[id number], 157, cm, 01/16/25 17:56:00 EST, Height/Length Dosing, 95, kg, 01/16/25 17:56:00 EST, Weight Dosing Start Date: 01/16/25 Status: Ordered Start: 02-19-2019 End: 07-27-9371mepi 1 tablet by mouth twice daily as needed for painNaproxen 500 mg tablet Discontinued 500 MG PO Twice daily as needed for pain February 19, 2019 12:00am March 08, 2019 3:53pm administer with food or milkondansetron 4 mg disintegrating oral tablet (20 sources)Serotonin-3 Receptor AntagonistStart: 28-24-3440Xlpgo: 11-09-2022 End: 00-17-2208qwzg 1 tablet by mouth every eight hours as needed for nausea and vomitingOndansetron 8 mg tablet,disintegrating Discontinued 8 MG PO Q8H as needed for nausea and vomiting 10 November 09, 2022 1:00am October 28, 2024 10:59pmStart: 11-07-2022 End: 71-41-6050Hianhesverz Hcl 4 mg tablet Discontinued 4 MG PO every 6 to 8 hours as needed for nausea and vomiting November 07, 2022 1:00am November 09, 2022 4:12pmStart: 08-20-2022 End: 64-64-7026Jrmhcnocqjk 4 mg tablet,disintegrating Discontinued 4 MG PO every 6 to 8 hours as needed for Okxdwg74 August 20, 2022 12:00am January 06, 2023 5:46pmStart: 05-14-2022 End: 97-96-2120hswz 1 tablet by mouth every eight hours as needed for nausea and vomitingOndansetron 4 mg tablet,disintegrating Discontinued 4 MG PO Q8H as needed for nausea and vomiting 72 May 14, 2022 12:00am August 18, 2022 12:32pmStart: 02-07-2022 End: 23-53-4972Fzlksaffvcl 4 mg Tablet,Disintegrating Discontinued 4 MG PO every 6 to 8 hours as needed for Ggqgdq52 February 07, 2022 1:00am March 08, 2022 8:15pmStart: 07-15-2021 End: 10-60-6223zgbg 1 tablet by mouth every eight hours as needed for nausea and vomitingOndansetron Hcl (Zofran) 4 mg tablet Discontinued 4 MG PO Q8H as needed for nausea and vomiting 10 July 15, 2021 12:00am July 19, 2021 2:07pm Start: 04-14-2021 End: 45-50-9437lteh 1 tablet by mouth every eight hours as needed for nausea and vomitingOndansetron 8 mg tablet,disintegrating Discontinued 8 MG PO Q8H as needed for nausea and vomiting 10 April 14, 2021 12:00am July 19, 2021 2:07pmStart: 10-02-2020 End: 78-13-0279eant 1 tablet by mouth every eight hours as needed for nausea and vomitingOndansetron 4 mg tablet,disintegrating Discontinued 4 MG PO Q8H as needed for nausea and vomiting 3Nov2019 1:00am January 12, 2021 1:35pmStart: 09-23-2020 End: 78-35-9321vasb 1 tablet by mouth every eight hours as needed for nausea and vomitingOndansetron Hcl 4 mg tablet Discontinued 4 MG PO Q8H as needed for nausea and vomiting September 23, 2020 12:00am January 12, 2021 1:35pm Start: 06-25-2020 End: 85-95-0197lkwy 1 tablet by mouth three times daily as needed for nausea and vomitingOndansetron 4 mg tablet,disintegrating Discontinued 4 MG PO Three times daily as needed for nausea and vomiting 10 June 25, 2020 12:00am July 19, 2020 2:22pmStart: 01-03-2020 End: 63-50-9991eccy 1 tablet by mouth every eight hours as needed for nausea and vomitingOndansetron Hcl (Zofran) 4 mg tablet Discontinued 4 MG PO Q8H as needed for nausea and vomiting 6 2February 2019 1:00am February 19, 2020 6:54pm Start: 10-25-2019 End: 52-84-3502Kzwdqxzjajy 4 mg tablet,disintegrating Discontinued 4 MG PO every 6 to 8 hours as needed for nauseaand vomiting April 23, 2020 12:00am May 19, 2020 4:07amStart: 09-30-2019 End: 75-48-7086filf 1 tablet by mouth four times daily as needed for nausea and vomitingOndansetron Hcl (Zofran) 4 mg tablet Discontinued 4 MG PO Four times daily as needed for nausea andvomiting September 30, 2019 12:00am October 24, 2019 10:46pmStart: 09-30-2019 End: 53-79-6121Womrw: 06-24-2019 End: 17-40-7583pool 1 tablet by mouth every six hours as needed for nausea and vomitingOndansetron 4 mg tablet,disintegrating Discontinued 4 MG PO Q6H as needed for nausea and vomiting June 24, 2019 12:00am September 03, 2019 8:25pmStart: 06-24-2019 End: 30-83-1010Usxph: 05-02-2019 End: 54-88-5134Zshuhhjhoqt 8 mg tablet,disintegrating Discontinued 8 MG PO EVERY 8-12 HOURS as needed for nausea and vomiting June 02, 2019 12:00am September 03, 2019 8:25pmStart: 05-02-2019 End: 44-81-5681fckb 1 tablet by mouth three times daily as needed for nausea and vomitingOndansetron 8 mg tablet,disintegrating Discontinued 8 MG PO Three times daily as needed for nausea and vomiting May 02, 2019 12:00am September 03, 2019 8:25pmStart: 02-19-2019 End: 07-15-4726idcs 1 tablet by mouth every eight hours as needed for nausea and vomitingOndansetron 4 mg tablet,disintegrating Discontinued 4 MG PO Q8H as needed for nausea and vomiting February 19, 2019 12:00am March 08, 2019 3:53pmStart: 12-28-2018 End: 82-72-1447swti 1 tablet by mouth three times daily as needed for nausea and vomitingOndansetron Hcl (Zofran) 8 mg Tablet Discontinued 8 MG PO Three times daily as needed for Nausea And Vomiting December 28, 2018 1:00am May 05, 2019 8:42pmStart: 09-04-2018 End: 29-77-3532kpzv 1 tablet by mouth every eight hours as needed for nausea and vomitingOndansetron (Zofran Odt) 4 mg tablet,disintegrating Discontinued 4 MG PO Q8H as needed for nausea and vomiting 9 September 04, 2018 12:00am October 16, 2018 4:08pmStart: 08-29-2018 End: 14-27-5371vuah 1 tablet by mouth every eight hoursOndansetron (Zofran Odt) 4 mg tablet,disintegrating Discontinued 4 MG PO Q8H 9 August 29, 2018 1 2:00am August 31, 2018 12:00am September 01, 2018 12:02amStart: 03-27-2018 End: 22-21-3396cvmx 1 tablet by mouth every four hours for nauseaOndansetron (Zofran Odt) 4 mg Tablet,Disintegrating Discontinued 4 MG PO Q4H as needed for Nausea March 27, 2018 12:00am April 06, 2018 12:29am administer first dose 30 minutes before start of emetogenic chemotherapyStart: 03-27-2018 End: 08-47-1229Ltidm: 01-03-2018 End: 49-07-1114Glkppdvdmtm (Zofran Odt) 4 mg tablet,disintegrating Discontinued 8 MG PO Q8H as needed for nausea and vomiting 9 3 January 03, 2018 1:00am January 17, 2018 3:10amStart: 01-03-2018 End: 05-15-1021Dbfyp: 10-03-2017 End: 29-46-8493lqxx 1 tablet by mouth every eight hours as needed for nausea Ondansetron (Zofran Odt) 4 mg tablet,disintegrating Discontinued 4 MG PO Q8H as needed for nausea October 03, 2017 1:00am October 06, 2017 1:12amStart: 10-03-2017 End: 17-57-0957ypvu 1 tablet by mouth every eight hours [...] meq extended release oral tablet (20 sources)Start: 63-23-1874oewq 1 tablet by mouth twice dailyStart: 08-22-2022 End: 85-80-1458dwfq 1 capsule by mouth once dailyPotassium Chloride 10 mEq capsule, extended release Discontinued 10 MEQ PO Daily 09 06August 22, 2022 12:00am November 09, 2022 4:12pmStart: 04-26-2018 End: 81-05-4869snvu 20 mEq by mouth once dailyPotassium Chloride 20 mEq packet Discontinued 20 MEQ PO Daily April 26, 2018 12:00am May 08, 2018 6:56pm promethazine hydrochloride 12.5 mg oral tablet (20 sources)PhenothiazineStart: 82-64-6738zgfd 1 tablet by mouth every six hours as needed for nauseapromethazine 12.5 mg oral tablet 12.5 mg = 1 tab(s), Oral, q6hr, PRN for nausea/vomiting, # 10 tab(s), Refills(s) 0, Pharmacy: [facility]/pharmacy #[id number], 157, cm, 01/16/25 17:56:00 EST, Height/Length Dosing, 95, kg, 01/16/25 17:56:00 EST, Weight Dosing Start Date: 01/16/25 Status: OrderedStart: 07-30-2024 take 1 tablet by mouth every eight hours as needed for nauseapromethazine 12.5 mg oral tablet 12.5 mg = 1 tab(s), Oral, q8hr, PRN as needed for nausea/vomiting,second line, # 10 tab(s), Refills(s) 0, Pharmacy: [facility]/pharmacy #[id number], 157, cm, 07/30/24 19:37:00 EDT, Height/Length Dosing, 96.1, kg, 07/30/24 19:37:00 EDT, Weight Dosing Start Date: 07/30/24 Status: OrderedStart: 07-30-2024 take 12.5 mg rectal route every eight hours as needed for nauseaPhenergan 12.5 mg Supp 12.5 mg = 1 supp, Rectal, q8hr, PRN as needed for nausea/vomiting, 3rd line,# 6 EA, Refills(s) 0, [id number], cm, 07/30/24 19:37:00 EDT, Height/Length Dosing, 96.1, kg, 07/30/24 19:37:00 EDT, Weight Dosing Start Date: 07/30/24 Status: OrderedStart: 05-25-2023 End: 75-45-5771Sdwvruazirnb 25 mg tablet Discontinued 12.5 MG PO Three times daily as needed for nausea and vomiting May 25, 2023 8:37am October 28, 2024 10:59pmStart: 40-06-4545xleg 12.5 mg by mouth three times dailyPromethazine Active 12.5 MG PO Three times daily May 25, 2023 8:37amStart: 01-02-2023 End: 80-61-6350Dcqvzzwaiuch 25 mg suppository Discontinued 25 MG ID Q6H as needed for Nausea January 02:00am October 28, 2024 10:59pmStart: 12-31-2022 End: 14-26-5581vtin 1 tablet by mouth three times daily as needed for nausea and vomitingPromethazine 25 mg tablet Discontinued 25 MG PO Three times daily as needed for nausea and January 07, 2023 1:00am May 25, 2023 8:36amStart: 05-15-2022 End: 13-41-9972bzqz 1 tablet by mouth three times daily as needed for nausea Promethazine 25 mg tablet Discontinued 25 MG PO Three times daily as needed for Nausea May 15, 2022 12:00am August 18, 2022 12:33pmStart: 02-09-2022 End: 65-79-8318Ozquzowpaasd 25 mg suppository Discontinued 25 MG ID Q6H as needed for nausea and vomiting 2021 12:00am March 08, 2022 8:15pmStart: 09-30-2021 End: 64-05-2602ombz 3 tablets by mouth three times daily as needed for nausea and vomitingPromethazine 12.5 mg tablet Discontinued 12.5 MG PO Three times daily as needed for nausea and vomiting 15 5 February 07, 2022 1:00am March 08, 2022 8:15pm 3 doses during day; last dose no later than 4 hr before bedtime Start: 09-30-2021 End: 86-10-2737zeuo 3 tablets by mouth twice daily as needed for nausea and vomitingPromethazine 12.5 mg tablet Discontinued 12.5 MG PO Twice daily as needed for nausea and vomiting 2020 12:00am February 06, 2022 11:25am 3 doses during day; last dose no later than 4 hr before bedtimeStart: 09-30-2021 End: 33-15-4454Qoyftntiindw 12.5 mg suppository Discontinued 12.5 MG ID Once September 30, 2021 12:00am 2020 9:34pmStart: 09-30-2021 End: 57-27-4695Vtpjcikgrcxj Discontinued 12.5 MG ID Once September 30, 2021 12:00am October 08, 2021 9:34pmStart: 09-30-2021 End: 08-50-0598Numpv: 04-23-2020 End: 37-22-5349qnzg 1 tablet by mouth every six hours as needed for nausea and vomitingPromethazine 12.5 mg tablet Discontinued 12.5 MG PO Q6H as needed for nausea and vomiting April 23, 2020 12:00am June 25, 2020 5:37pmStart: 03-21-2020 End: 26-23-6491Naxkzgljfaoy 25 mg tablet Discontinued 12.5 MG PO Every 8 hours as needed for nausea and vomiting March 21, 2020 12:00am June 25, 2020 5:37pmStart: 03-21-2020 End: 83-94-5182umxo 12.5 mg by mouth every eight hoursPromethazine Discontinued 12.5 MG PO Every 8 hours March 21, 2020 12:00am June 25, 2020 5:37pm Start: 03-21-2020 End: 62-69-9803Ivpnv: 05-10-2019 End: 66-47-9335Nsybnswoooub (Phenergan) 25 mg suppository Discontinued 25 MG ID Q4H as needed for nausea and vomiting May 10, 2019 12:00am September 03, 2019 8:25pmStart: 03-08-2019 End: 33-89-1964tzod 1 tablet by mouth every four to six hours as needed for nausea and vomitingPromethazine 25 mg tablet Discontinued 25 MG PO EVERY 4-6 HOURS as needed for nausea and vomiting March 08, 2019 12:00am March 23, 2019 5:49pmStart: 02-13-2018 End: 08-45-8439Isgakefqqhcu (Phenergan) 25 mg suppository Discontinued 25 MG ID Q8H as needed for nausea and vomiting February 13, 2018 12:00am March 13, 2018 10:44pmStart: 01-03-2018 End: 88-35-3837Njtkogwzcwku 25 mg suppository Discontinued 25 MG ID Q6H as needed for Nausea April 23, 2018 6:04pmOctober 16, 2018 4:08pmStart: 10-03-2017 End: 44-96-0569azgu 1 tablet by mouth every twelve hoursPromethazine 25 tablet Discontinued 25 MG PO Q12H October 03, 2017 1:00am April 06, 2018 12:30am Start: 08-24-2016 End: 69-24-5525perj 1 tablet by mouth every six hours as needed for nausea and vomitingPromethazine 25 mg tablet Discontinued 25 MG PO Q6H as needed for nausea and vomiting August 19, 2022 12:00am August 19, 2022 8:05pmZofran ODT 4 mg Tab-Dis (2 sources)Start: 85-29-4020ymcx 1 tablet by mouth every eight hours as needed for nauseaZofran ODT 4 mg Tab-Dis 4 mg = 1 tab(s), Oral, q8hr, PRN Nausea/Vomiting, # 16 tab(s), Refills(s) 0, Pharmacy: [facility]/pharmacy #[id number], 157, cm, 07/30/24 19:37:00 EDT, Height/Length Dosing, 96.1, kg, 07/30/24 19:37:00 EDT, Weight Dosing Start Date: 07/30/24 Status: Ordered Completed/Discontinued Medications MedicationDrug Class(es)DatesSig (Normalized)Sig (Original)acetaminophen 325 mg / oxyCODONE hydrochloride 5 mg oral tablet (15 sources)Opioid AgonistStart: 05-25-2023 End: 52-54-5298dhsp 1 tablet by mouth twice dailyOxycodone-Acetaminophen 5-325 mg tablet Discontinued 5 - 325 TAB PO 2 times daily May 25, 2023 12:00am October 28, 2024 10:59pmStart: 93-81-4042asle 1 tablet by mouth every four to six hours as needed for painPercocet 5-325 MG 1 tablet as needed for pain Orally up to every 4-6 hrs for 5 days SANTO: [id number] Apr, Activetake 1 tablet by mouth every six hoursoxyCODONE-Acetaminophen 5-325 MG 1 tablet as needed Orally every 6 hrs [id number] 200 actuat albuterol 0.09 mg/actuat metered dose inhaler (20 sources)beta2-Adrenergic AgonistStart: 08-20-2021 End: 25-20-1423Rvcqrqzds Sulfate 90 mcg/actuation HFA aerosol inhaler Discontinued 2 INH INHALATION Q6H as needed for shortness of breath or wheezing August 20, 2021 12:00am September 05, 2021 11:25pm administer with spacer Start: 08-20-2021 End: 23-65-2058Ztinm: 05-05-2019 End: 35-62-6153sage 1 puff(s) by inhalation every four to six hours as needed for wheezingAlbuterol Sulfate (Proventil Hfa) 90 mcg/actuation Hfa Aerosol Inhaler Discontinued 2 PUFF INHALATION EVERY 4-6 HOURS as needed for Shortness Of Breath Or Wheezing May 05, 2019 12:00am September 03, 2019 8:24pm with spacerStart: 05-05-2019 End: 82-66-5536Mxqih: 12-21-2017 End: 35-82-7059cqut 1 puff(s) by inhalation every four to six hours as needed for wheezingAlbuterol Sulfate 90 mcg/actuation Hfa Aerosol Inhaler Discontinued 2 PUFF INHALATION EVERY 4-6 HOURS as needed for Shortness Of Breath Or Wheezing December 21, 2017 1:00am July 19, 2021 2:07pmStart: 12-21-2017 End: 35-53-5385dgcg 1 puff(s) by inhalation every four to six hoursAlbuterol Sulfate Discontinued 2 PUFF INHALATION EVERY 4-6 HOURS December 21, 2017 12:00am July 19, 2021 1:07pmStart: 12-21-2017 End: 51-77-7037imgl 1 puff(s) by inhalation every four to six hoursAlbuterol Sulfate Discontinued 2 PUFF INHALATION EVERY 4-6 HOURS December 21, 2017 1:00am July 19, 2021 2:07pmStart: 99-70-9523kfgi 2 puff(s) by inhalation every four hours as needed for wheezingAlbuterol Sulfate HFA 108 (90 Base) MCG/ACT 2 puffs as needed Inhalation every 4 hrs prn for wheezing for 5 days PRN Jul, ActiveAlbuterol Sulfate 90 mcg/actuation Hfa Aerosol Inhaler (3 sources)Start: 12-21-2017 End: 89-98-8577ntvs 1 puff(s) by inhalation every four to six hours as needed for wheezingAlbuterol Sulfate 90 mcg/actuation Hfa Aerosol Inhaler Discontinued 2 PUFF INHALATION EVERY 4-6 HOURS as needed for Shortness Of Breath Or Wheezing December 21, 2017 1:00am July 19, 2021 2:07pmStart: 12-21-2017 End: 45-02-2290ltpz 1 puff(s) by inhalation every four to six hours as needed for wheezingAlbuterol Sulfate 90 mcg/actuation Hfa Aerosol Inhaler Discontinued 2 PUFF INHALATION EVERY 4-6 HOURS as needed for Shortness Of Breath Or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 depressive disorder, single episode, unspecified]ChronicNausea and vomiting (20 sources)Adverse reaction to cannabis; Translations: [Nausea with vomiting, unspecified]Onset: 278148-37-1395SxocqqpmHhlovllmrqvqn gastroenteritis (20 sources)Gastroenteritis; Translations: [Noninfective gastroenteritis and colitis, unspecified]26-91-9503DvcgtiynPzfveyempey chest pain (20 sources)Chest pain; Translations: [Chest pain, unspecified]01-06-2023 EpisodicNutritional deficiencies (1 source)Vitamin D deficiency, unspecified; Translations: [Vitamin D deficiency, unspecified]Onset: 87-03-3945BzsfemiTkcz wounds of extremities (20 sources)Laceration of left wrist; Translations: [Laceration without foreign body of left wrist, initial encounter]38-37-3994MzddndjfIcsx wounds of head; neck; and trunk (20 sources)Laceration - injury; Translations: [Laceration]64-75-6412Iundiiim Other aftercare (20 sources)Surgical follow-up; Translations: [Encounter for removal of sutures] 35-69-4459BhblpubyPqlzs aftercare (1 source)Removal of sutures done; Translations: [Encounter for removal of sutures]73-70-4072NdtunwguHouew circulatory disease (3 sources)Orthostatic hypotension; Translations: [Orthostatic hypotension] EpisodicOther complications of (20 sources)Nausea and vomiting; Translations: [Vomiting of , unspecified]Onset: 713932-84-0522UliwhrcoQtppf complications of (5 sources)Vomiting of , unspecified; Translations: [Nausea and vomiting during ]01-50-5465PjrshkhcJbvyd connective tissue disease (14 sources)Muscle pain; Translations: [Myalgia, unspecified site]12-31-2022 EpisodicOther disorders of stomach and duodenum (20 sources)Nonulcer dyspepsia; 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]08-22-2022 EpisodicOther disorders of stomach and duodenum (2 sources)Cannabis hyperemesis syndrome co-occurrent and due to cannabis abuse; Translations: [Cannabis hyperemesis syndrome concurrent with and due to cannabis abuse]95-76-2180IdgibtxbBneqd ear and sense organ disorders (20 sources)Otitis externa; Translations: [Unspecified otitis externa, unspecified ear]01-57-1949XbsgduuYmnnc gastrointestinal disorders (20 sources)Diarrhea; Translations: [Diarrhea, unspecified]70-64-6027Dcwtkxei Other infections; including parasitic (20 sources)Personal history of other infectious and parasitic diseases; Translations: [History of 2019 novel coronavirus disease (COVID-19)]10-07-2020 EpisodicOther injuries and conditions due to external causes (20 sources)Minor head injury; Translations: [Unspecified injury of head, initial encounter]49-78-9998UukztaknOarak liver diseases (1 source)Fatty (change of) liver, not elsewhere classified; Translations: [Fatty (change of) liver, not elsewhere classified]Onset: 44-80-4770UjlyzqsRfvjg lower respiratory disease (20 sources)Cough; Translations: [Cough]48-88-6058HrkhkhtcMwcjs nervous system disorders (20 sources)Acute abdominal pain; Translations: [Other acute postprocedural pain]17-16-4055DmiymxtsNhynu and delivery including normal (20 sources); Translations: [Encounter for supervision of normal , unspecified, unspecified trimester]Onset: EpisodicOther screening for suspected conditions (not mental disorders or infectious disease) (1 source)Imaging result abnormal; Translations: [Abnormal findings on diagnostic imaging of other specified body structures]Onset: 86-66-6333Wkqgonr Other skin disorders (4 sources)Follicular disorder, unspecified; Translations: [FOLLICULAR DISORDER UNSPECIFIED]Onset: 46-44-3336EoqzeujdRdbxr upper respiratory disease (20 sources)Bleeding from nose; Translations: [Epistaxis]09-73-9464PznagcqaZccfp upper respiratory infections (20 sources)Upper respiratory infection; Translations: [Acute upper respiratory infection, unspecified]42-78-5884OxarbspbTormrm media and related conditions (20 sources)Otitis media; Translations: [Otitis media, unspecified, unspecified ear]78-27-9679AthnagsgGfdyxee cyst (20 sources)Cyst of ovary; Translations: [Unspecified ovarian cyst, unspecified side]23-60-6950GgyoshpjQznhewfp; pneumothorax; pulmonary collapse (1 source)Interstitial emphysema of lung; Translations: [Interstitial emphysema] Onset: 40-69-8876DmglapgwSctvppjhy by other medications and drugs (20 sources)Poisoning by unspecified drugs, medicaments and biological substances, accidental (unintentional), initial encounter; Translations: [Overdose in pediatric patient]38-35-1351MrilsyobNttzmbsp codes; unclassified (20 sources)Left against medical advice; Translations: [Procedure and treatment not carried out because of patient's decision for other reasons]05-16-2022 EpisodicResidual codes; unclassified (1 source)Procedure and treatment not carried out because of patient's decision for other reasons; Translations: [PROC AND TX NOT CARRIED OUT PT OTH RSN]Onset: 79-44-7766LmgzggcvSglbznrn codes; unclassified (3 sources)Nasogastric tube in situ; Translations: [Presence of other specified devices]EpisodicResidual codes; unclassified (3 sources)Insomnia; Translations: [Insomnia, unspecified]EpisodicResidual codes; unclassified (2 sources)Other specified postprocedural statesEpisodicSprains and strains (1 source)Lower back injury; Translations: [Strain of muscle, fascia and tendon of lower back, initial encounter]Onset: 15-08-8093IxwigqcjQevtsdtoj-related disorders (20 sources)Cannabis hyperemesis syndrome co-occurrent and due to cannabis abuse; Translations: [Cannabis abusewith other cannabis-induced disorder]Onset: 362026-15-2284DcbsippOwrnzdp and intentional self-inflicted injury (20 sources)Suicidal thoughts; Translations: [Suicidal ideations]06-22-2018 EpisodicSuperficial injury; contusion (20 sources)Abrasion of ear region; Translations: [Abrasion of unspecified ear, initial encounter]Onset: 399482-96-9138BhzbuvwxYwdqkjtwznua (1 source)Tachycardia, unspecified / R00.0(ICD-10)Onset: 32-83-0079Mxustgoekrlo (1 source)Cyclical vomiting, not intractable / G43.A0(ICD-10)Onset: 08-24-2017 Unclassified (1 source)Obesity, unspecified / E66.9(ICD-10)Onset: 58-95-1777Tflcnhjyrdoi (2 sources)Migraine, unsp, not intractable, without status migrainosus / G43.909(ICD-10)Onset: 52-28-8226Zhotaiykusqt (1 source)Anxiety disorder, unspecified / F41.9(ICD-10)Onset: 08-25-2017 Unclassified (2 sources)Hematemesis / K92.0(ICD-10)Onset: 06-19-6997Ixwweuelhwzq (1 source)detention (current) use of non-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-inflam (NSAID) / Z79.1(ICD-10)Onset: 44-43-5023Ilabdrmqdkbk (1 source)Cntct w and expsr to environ tobacco smoke (acute) (chronic) / Z77.22(ICD-10)Onset: 43-84-6656Zrdyuzjvdnwv (1 source)Epistaxis / R04.0(ICD-10)Onset: 83-40-2495Mxcimyzftvwm (1 source)BMI pediatric, greater than or equal to 95% for age / Z68.54(ICD-10) Onset: 67-00-9800Jwdqdnvdupwq (1 source)Vitamin D deficiency, unspecified / E55.9(ICD-10)Onset: 08-25-2017 Unclassified (1 source)Unspecified abdominal pain / R10.9(ICD-10)Onset: 08-25-2017 Unclassified (1 source)Dorsalgia, unspecified / M54.9(ICD-10)Onset: 14-00-8062Empyruflxime (1 source)Fatty (change of) liver, not elsewhere classified / K76.0(ICD-10) Onset: 32-04-8952Zrnmldungfnr (1 source)Vomiting, unspecified / R11.10(ICD-10)Onset: 23-98-7959Kgcftyluctjn (1 source)Other specified cardiac arrhythmias / I49.8(ICD-10)Onset: 08-24-2017 Unclassified (1 source)CONTACT W/AND (SUSP) EXPOS COVID-19; Translations: [CONTACT W/AND (SUSP) EXPOS COVID-19]Onset: 11-34-2040Abbmu infection (20 sources)Viral disease; Translations: [Viral infection, unspecified] 80-65-0903Ntrkxudu Past or Other Problems Problem ClassificationProblemDateDocumented DateEpisodic/ChronicSpondylosis; intervertebral disc disorders; other back problems (1 source)Dorsalgia, unspecified; Translations: [Dorsalgia, unspecified]Onset: 36-71-4470EdyjgpctKyfrsguscrdt (1 source)Vomiting, unspecified; Translations: [Vomiting, unspecified]Onset: 74-71-5021Cvlgxvwqmvho (1 source)Tachycardia, unspecified; Translations: [Tachycardia, unspecified] Onset: 63-39-9703Wdkjfwk tract infections (20 sources)Urinary tract infectious disease; Translations: [Urinary tract infection, site not specified]Onset: 002928-56-1209Uwyvspwg Results Test NameValueInterpretationReference RangeFacilityAmphetamine Screen Ql (U) Ordered By: Kelsey Espino on 24-11-2748Nqpaguzphwui Ql (U)NegativeNegative [facility]itrick HospitalBarbiturates [Presence] in Urine by Screen methodOrdered By: Kelsey Espino on 71-92-0901Fdnecvtqnxzz Screen Ql (U)Negative NegativeMckitrick HospitalBenzodiazepines Screen Ql (U)Ordered By: Kelsey Espino on 53-96-3286Prclfpqecznughz Ql (U)NegativeNegativeMckitrick HospitalBenzoylecgonine [Presence] in Urine by Screen method Ordered By: Kelsey Espino on 38-11-4260Cbjxpzfejtfcjct Screen Ql (U)Negative NegativeMckitrick HospitalChlamydia/GC/Trich NAAon 08-28-2025 Chlamydia Trachomotis, NAANegativeNormalNegativeThe [facility] Comment on above:Order Comment: Reason for Exam Encounter for supervision of other normal , unspeci Specimen Comment: A duplicate report has been generated due to demographic Specimen Comment: updates.Performed By: #### PAP [id number], GCCHLAMTRI #### [facility] , #### OBUDS #### [facility] [address] [id number] USANeisseria Gonorrhoeae, NAANegativeNormalNegativeThe [facility] Physician GroupComment on above:Order Comment: Reason for Exam Encounter for supervision of other normal , unspeci Specimen Comment: A duplicate report has been generated due to demographic Specimen Comment: updates.Performed By: #### PAP [id number], GCCHLAMTRI #### [facility] , #### OBUDS #### [facility] [address] [place] [address] USATrichomonas NAANegativeNormalNegativeThe [facility] Physician GroupComment on above:Order Comment: Reason for Exam Encounter for supervision of other normal , unspeci Specimen Comment: A duplicate report has been generated due to demographic Specimen Comment: updates.Result Comment: Performed at: =[address], [place], [place] [id number] Electrical Electronics Engineers: Viv Birmingham MD, Phone: [phone] PERFORMED BY: [facility] [address] [place] [address] PATHOLOGIST SOFTWARE PROJECT LEAD FRAN NUNEZ M.D.Performed By: #### PAP [id number], GCCHLAMTRI #### [facility] , #### OBUDS #### [place] [address] USAIGP,Aptima HPV,CtNg Age Gdlnon 74-82-3654MXK, Age GdlnNote Normal.[facility] Physician GroupComment on above:Order Comment: Reason for Exam Encounter for supervision of other normal , unspeci Specimen Comment: [id number] Comment: TESTS RESULT FLAG UNITS REF RANGE LAB Clinician Provided Cytology Information No. of containers..01 ThinPrep Vial Age Algo ACOG Geeta... -20 12 FLAG LEGEND: L-Low Normal,H-High Normal,LL-Alert Low,HH-Alert High <-Panic Low,>-Panic High,A-Abnormal,AA-Critical Abnormal Performed at: 01 =G [facility] [place] [address] [facility] [place] [address] Viv Birmingham MD, Mjipwrkvg By: #### PAP [id number], GCCHLAMTRI #### [facility] , #### OBUDS #### [place] [address] USAPAP Chlamydia NAANegativeNormalNegativeThe [facility] Physician GroupComment on above:Order Comment: Reason for Exam Encounter for supervision of other normal , unspeci Specimen Comment: [id number] By: #### PAP [id number], GCCHLAMTRI #### [facility] , #### OBUDS #### [place] [address] USAPAP GonococcusNegativeNormalNegativeThe [facility] Physician GroupComment on above:Order Comment: Reason for Exam Encounter for supervision of other normal , unspeci Specimen Comment: [id number] Comment: Performed at: = - [facility] [address] [id number] Electrical Electronics Engineers: Viv Birmingham MD, Phone: [phone] Performed at: - [facility] [address] [id number] Electrical [employer] Engineers: Viv Birmingham MD, Phone: [phone] PERFORMED BY: [place] [address] PATHOLOGIST SOFTWARE PROJECT LEAD RFAN NUNEZ M.D.Performed By: #### PAP [id number], GCCHLAMTRI #### [facility] , #### OBUDS #### [place] [address] USAPap IGNoteNormal.The [facility] Physician GroupComment on above:Order Comment: Reason for Exam Encounter for supervision of other normal , unspeci Specimen Comment: [id number] Comment: TESTS RESULT FLAG UNITS REF RANGE LAB DIAGNOSIS: 02 NEGATIVE FOR INTRAEPITHELIAL LESION OR MALIGNANCY. Specimen adequacy: 02 Satisfactory for evaluation. No endocervical component is identified. Performed by: 02 Queta Lofton, Supervisory Document Review Specialist (ASC) . 02 Note: Note 02 The [...] <-Panic Low,>-Panic High,A-Abnormal,AA-Critical Abnormal Performed at: [address] [address] Viv Birmingham MD, Shukyrmtw By: #### PAP [id number], GCCHLAMTRI #### [facility] , #### OBUDS #### [facility] [address] [id number] USAOB Urine Drug Screen (NO THC)on 99-04-9570Qbvywdtcuot Screen,UrineNegativeNormalNegativeThe [facility] Physician GroupComment on above: Order Comment: Reason for Exam Encounter for supervision of other normal , unspeciPerformed By: #### PAP [id number], GCCHLAMTRI #### [facility] , #### OBUDS #### [facility] [address] [place] [address] USABarbiturate Screen,UrineNegativeNormalNegativeThe [facility] Physician GroupComment on above:Order Comment: Reason for Exam Encounter for supervision of other normal , unspeciPerformed By: #### PAP [id number], GCCHLAMTRI #### [facility] , #### OBUDS #### [facility] [address] [place] [address] USABenzodiazepines Screen,UrineNegativeNormalNegativeThe [facility] Physician GroupComment on above:Order Comment: Reason for Exam Encounter for supervision of other normal , unspeciPerformed By: #### PAP 768804, GCCHLAMTRI #### [facility] , #### OBUDS #### [facility] [address] [place] [address] USACocaine Screen,UrineNegativeNormalNegativeThe [facility] Physician GroupComment on above:Order Comment: Reason for Exam Encounter for supervision of other normal , unspeciPerformed By: #### PAP 832603, GCCHLAMTRI #### [facility] , #### OBUDS #### [place] [address] USAOpiate Screen,UrineNegativeNormalNegativeHca [facility] Emergency Physician GroupComment on above:Order Comment: Reason for Exam Encounter for supervision of other normal , unspeciPerformed By: #### PAP [id number], GCCHLAMTRI #### [facility] , #### OBUDS #### [facility] [address] [place] [address] USAPhencyclidine Screen, UrineNegativeNormalNegativeThe [facility] Physician GroupComment on above:Order Comment: Reason for Exam Encounter for supervision of other normal , unspeciResult Comment: These are unconfirmed results and should not be used for legal purposes. Drug Cut-Off Concentration: AMPH 1000 ng/mL NIKOLAS 200 ng/mL SHRAVAN 200 ng/mL COCM 300 ng/mL OP 300 ng/mL PCP 25 ng/mL PERFORMED BY: [place] [address] PATHOLOGIST SOFTWARE PROJECT LEAD FRAN NUNEZ M.D.Performed By: #### PAP [id number], NONIHLAMTRI #### [facility] , #### OBUDS #### [address] [id number] USAOpiates [Presence] in Urine by Screen methodOrdered By: Kelsey Espino on 55-76-9987Vkvnsxk Screen Ql (U)NegativeNegFayette County Memorial HospitalPhencyclidine Screen Ql (U)Ordered By: Kelsey Espino on 12-61-1048Vtmjyzbgkzvpc Ql (U)NegativeNegFayette County Memorial Hospital Comment on above:These are unconfirmed results and should not be used for legal purposes. Drug Cut-Off Concentration: AMPH 1000 ng/mL NIKOLAS 200 ng/mL SHRAVAN 200 ng/mL COCM 300 ng/mL OP 300 ng/mL PCP 25 ng/mLUrine Cultureon 77-67-5094Nkedvhbk identified Cx Nom (U)25,000 colonies/ml mixed bacterial skin contaminants 2 Days PERFORMED BY: [place] [address] PATHOLOGIST SOFTWARE PROJECT LEAD FRAN NUNEZ M.D.NormalThe [facility] Physician GroupComment on above: Performed By: #### PAP [id number], NONIHLAMTRI #### [facility] , #### OBUDS #### [facility] [address] [place], [place] [address] USAC Urineon 04-81-1679Dfswpbid identified Cx Nom (U) Microbiology PROCEDURE: Urine Culture [R1] SOURCE: U CleanCatch BODY SITE: COLLECTED DATE/TIME: 08/22/2025 19:48 EDT RECEIVED DATE/TIME: 08/22/2025 20:18 EDT START DATE/TIME: 08/22/2025 20:18 EDT FREE TEXT SOURCE: Sunday Johnson PA-C. Elizabeth LOVE, Sunday Abdi. FINAL REPORTS Final Report [] Verified Date/Time: 08/24/2025 10:07 EDT 3,000 cfu/ml Mixed skin contaminants Performing Locations R1: This test was performed at: [facility], [address] [place] [address], [address] , [place], TtevplMuhjzqThe Surgical Hospital at SouthwoodsComment on above:Performed By: #### [id number] #### [facility] [address] [place] [address]UQ 1st Trimesteron [id number] 1st TrimesterExam Date/Time: 08/22/2025 21:20 EDT Reason [...] Mahamed Quispe MD Transcribed by: KIRA Technologist: OdalismimiUc Medical CenterBMPon 81-70-4279Fstty gap [Moles/Vol]14 mmol/LNormal6-16[facility] Comment on above:Performed By: #### [id number] #### [facility] [address] [place], [place] [address]VSV/Creat Ratio30 No OljhpRyhj26-23FpbhppUc Medical Center Comment on above:Performed By: #### [id number] #### [facility] [address] [place], [place] [address]Ptqhris [Mass/Vol]10.3 mg/dLNormal8.9-11.1FHighland District HospitalComment on above:Performed By: #### [id number] #### [facility] [address] [place], [place] [address]Exjicsur [Moles/Vol]97 mmol/VQyf358-876BwgckdUc Medical CenterComment on above:Performed By: #### [id number] #### [facility] [address] [place], [place] [address]EI3 [Moles/Vol]27 mmol/QLhojni50-41HlzodxUc Medical Center Comment on above:Performed By: #### [id number] #### [facility] [address] [place], [place] [address]Eqvrpxbios [Mass/Vol]0.9 mg/dLNormal0.5-1.3FHighland District HospitalComment on above:Performed By: #### [id number] #### [facility] [address] [place], [place] [address]Ewkpvhu [Mass/Vol]106 mg/fLOnaqjb33-924YkkkifUc Medical CenterComment on above:Performed By: #### [id number] #### [facility] [address] [place], [place] [address]Zmrnbgioo [Moles/Vol]3.3 mmol/LLow3.5-5.3FHighland District HospitalComment on above:Performed By: #### [id number] #### [facility] [address] [place], [place] [address]Qkgtvw [Moles/Vol]135 mmol/KLubbuq044-149VlpdssUc Medical CenterComment on above:Performed By: #### [id number] #### [facility] [address] [place], [place] [address]Lxei nitrogen [Mass/Vol]27 mg/dLHigh5-21Uc Medical CenterComment on above:Performed By: #### [id number] #### [facility] [address] [place] [address]LqIL Quanton 54-07-3620Evqf hCG Fac6514 mIU/mLHigh1-3FHighland District HospitalComment on above:Result Comment: 'F NON < 1 - 3' ' 0.2 - 1 WEEK = 5 TO 50' ' 1 - 2 WEEKS = 50 - 500' ' 2 - 3 WEEKS = 100 - 5000' ' 3 - 4 WEEKS = 500 - 27440' ' 4 - 5 WEEKS = 1000 - 38769' ' 5 - 6 WEEKS = 96220 - 951406' ' 6 - 8 WEEKS = 05874 - 401350' ' 8 - 12 WEEKS = 03589 - 260246'Performed By: #### [id number] #### [facility] [address] [place], [place] [address]KDV w/ Auto Diffon 86-42-7219Rsnryidr Absolute0.1 E9/LNormal 0.0-0.2FHighland District HospitalComment on above:Performed By: #### [id number] #### [facility] [address] [place], [place] [address]Iekduqmwm/100 WBC (Bld)0.8 %Normal0.0-2.0Uc Medical CenterComment on above:Performed By: #### [id number] #### [facility] [address] [place], [place] [address]Myb Absolute0.0 E9/LNormal0.0-0.5FHighland District Hospital Comment on above:Performed By: #### [id number] #### [facility] [address] [place], [place] [address]Kjhhimwyfmg/100 WBC (Bld)0.1 %Normal0.0-8.0Uc Medical CenterComment on above:Performed By: #### [id number] #### [facility] [address] [place], [place] [address]Smrftgqkrrb distribution width (RBC) [Ratio]14.0 %Normal 10.9-14.2FHighland District HospitalComment on above:Performed By: #### [id number] #### [facility] [address] [place] [address]Jueqkhjcev (Bld) [Volume fraction]44.8 %Mznhrg52.0-46.0Uc Medical CenterComment on above:Performed By: #### [id number] #### [facility] [address] [place] [address]Cgofdvarkk (Bld) [Mass/Vol]15.6 g/rMKndsrr71.0-16.0[facility] Medical CenterComment on above:Performed By: #### [id number] #### [facility] [address] [place] [address]Pximb Absolute1.4 E9/LNormal1.0-4.0[facility] Comment on above:Performed By: #### [id number] #### [facility] [address] [place] [address]Xyhztrhmxre/100 WBC (Bld)8.2 %Low14.0-50.0U[facility] Medical CenterComment on above:Performed By: #### [id number] #### [facility] [address] [place] [address] 365[address]MBX (RBC) [Entitic mass]30.1 ieXmajdv23.0-34.0[facility] Medical CenterComment on above:Performed By: #### [id number] #### [facility] [address] [place], [place] [address]EIUQ (RBC) [Mass/Vol]34.8 g/lMKwtfhk60.4-36.0[facility] Medical CenterComment on above:Performed By: #### [id number] #### [facility] [address] [place], [place] [address]EAX (RBC) [Entitic vol]86.4 mPMjwtdl82.0-100.0[facility] Medical CenterComment on above:Performed By: #### [id number] #### [facility] [address] [place] [address]Lcwl Absolute0.9 E9/LNormal0.2-1.0[facility] Comment on above:Performed By: #### [id number] #### [facility] [address] [place] [address]Djrphfmig/100 WBC (Bld)5.4 %Normal4.0-14.0[facility] Medical CenterComment on above:Performed By: #### [id number] #### [facility] [address] [place], [place] [address]Akrgux Vfxbtgjg66.1 E9/LHigh2.0-7.5FHighland District Hospital Comment on above:Performed By: #### [id number] #### [facility] [address] [place], [place] [address]Qlfaap Auto85.5 %High36.0-75.0[facility] Comment on above:Performed By: #### [id number] #### [facility] [address] [place], [place] [address]Cdxievmm289.0 E9/VSkzrtj882.0-500.0[facility] Comment on above:Performed By: #### [id number] #### [facility] [address] [place], [place] [address]Nqtthefh mean volume (Bld) [Entitic vol]8.0 fLNormal6.4-10.8 [facility] CenterComment on above:Performed By: #### [id number] #### [facility] [address] [place] [address]TJV9.2 E12/LNormal4.3-5.9[facility] Medical CenterComment on above:Performed By: #### [id number] #### [facility] [address] [place] [address]AEV62.5 E9/LHigh4.0-11.0[facility] Medical CenterComment on above:Performed By: #### [id number] #### [facility] [address] [place] [id number] Clinical Summaryon 68-20-2859YU Clinical SummaryED Clinical Summary [address] [address] ED Clinical Summary Person Information Name: PILI PARIKH/[facility] Age: 20 Years : 2005 Sex: Female Language: Qatari PCP: MODESTA CHAND CNP Marital Status: Single [...] 08/22/2025 21:56:29 08/22/2025 21:56:29 ADDRESS: [address] [facility] [id number] PHYS DOC NOTES: MEDICAL INFORMATION: Prescriptions Given: Medications to Continue Taking That Have Changed [id number], [address], [place] [id number], [phone] 9415 START: ondansetron (Zofran ODT 4 mg Tab-Dis) [...] Follow up: With: Address: When: [facility] [phone] In 3 days 08/25/2025 Comments: Follow-up with Kelsey cuadra [facility] at [facility]. Use nausea medications as prescribed. Eat multiple small meals a day. Increase your fluid intake. With: Address: When: MODESTA CHAND [address] [place] A SANDUSK (more content not included)... NormalFisher Anthony Medical CenterED Note-Nursingon 27-00-6082AP Note-NursingED Note-Nursing pt requesting to leave ama. pt states she does not want to keep waiting and just wants to go home. pt made aware of risks of leaving by millicent sanchez and Dr. guthrie. pt still requesting to leave ama. pt informed of when to come back and pt verbalized understanding. ama form signed prior to pt leaving.[facility] CenterED Note-Physicianon 29-83-4650SL Note-PhysicianED Note-Physician Basic Information Time Seen: Sunday [...] Zofran and ODT as well as Phenergan ID were prescribed. The patient still wanted to leave AGAINST MEDICAL ADVICE. Discussed with her that she may return atany time to continue her care. She will follow-up with her [facility] at [facility]. Returnprecautions were discussed. All questions were answered. [...] PRN Nausea/Vomiting, # 30 tab(s), Refills(s) 0, [id number], cm, 08/22/25 17:08:00 EDT, Height/Length Dosing, 95, kg, 08/22/25 17:08:00EDT, Weight Dosing promethazine, 25 mg = 1 supp, Rectal, q6hr, PRN Nausea/Vomiting, # 16 EA, Refills(s) 0, [id number] 157, cm, 08/22/25 17:08:00 EDT, Height/Length Dosing, 95, kg, 08/22/25 17:08:00 EDT, Weight Dosing promethazine, 25 mg = 1 supp, Supp, Rectal, Once, Stop date 08/22/25 20:02:00 EDT, STAT, Start date08/22/25 20:02:00 EDT, 08/22/25 20:02:00 EDT Urinary Catheter Insertion Medications Admini (more content not included)...[facility] Community HospitalComment on above:Result Comment: Electronically Signed By: Sunday Johnson PA-C\.br\Date and Time Signed: 08/22/2519:13 EDT\.br\Electronically Co- Signed By: Pradeep Guthrie DO\.br\Date and Time Co-Signed: 08/22/2521:55 EDTED Patient Summaryon 95-87-4090XN Patient SummaryED Patient Summary [address] [address] Patient Discharge Instructions Person Information Name: PILI PARIKH Age: 20 Years Arrival Date: 08/22/2025 17:04:27 Discharge Diagnosis: 1:Abdominal pain; 2:Nausea & vomiting; 3:; Hyperemesis gravidarum;Left against medical advice Primary Care Physician: MODESTA CHAND CNP Provider Information Primary Provider: Federico Randolph DO [facility] Caretaker:Elizabeth LOVE, Sunday Abdi. The exam and treatment you received in the Emergency Department were for an urgent problem and are not intended as complete care. It is important that you follow up with a doctor, nurse practitioner,or physician???s legal executive assistant for ongoing care. If your symptoms become worse or you do not improve asexpected and you are unable to reach your usual health care provider, you should return to the Emergency Department. We are available 24 hours a day. JLPILI TERRY has been given the following list of patient education materials, prescriptions andfollow-up instructions: Follow-up Instructions: With: Address: When: [facility] [phone] In 3 days 08/25/2025 Comments: Follow-up with Kelsey your [facility] at [facility]. Use nausea medications as prescribed. Eat multiple small meals a day. Increase your fluid intake. With: Address: When: MODESTA CHAND [facility] [place] [address] [phone] [facility] (1) In 3 days 08/25/2025 Comments: Call [...] opioids can be used to help relieve eydvnvef-np-aqseon pain and are often prescribed following a [...] more often than prescribed. (more content not included)...NormalUc Medical CenterHep Critical Access Hospital Panelon 94-50-5658Kljpbzu [Mass/Vol]5.2 g/dLHigh3.3-5.0[facility] Comment on above:Performed By: #### [id number] #### [facility] [address] [place], [place] [address]Qhutyay/Globulin [Mass ratio]1.4 {ratio}Normal1.1-2.2FHighland District HospitalComment on above:Performed By: #### [id number] #### [facility] [address] [place], [place] [address]Tdk Phos71 Int._Unit/CLehnfx11-29ZnfxqgUc Medical Center Comment on above:Performed By: #### [id number] #### [facility] [address] [place], [place] [address]UBZ92 Int._Unit/LNormal6-46[facility]c Medical CenterComment on above:Performed By: #### [id number] #### [facility] [address] [place], [place] [address]MGD40 Int._Unit/LNormal5-43[facility]c Medical CenterComment on above:Performed By: #### [id number] #### [facility] [address] [place], [place] [address]Qven Direct0.2 mg/dLNormal0.0-0.4FHighland District Hospital Comment on above:Performed By: #### [id number] #### [facility] [address] [place], [place] [address]Tmat Indirect0.5 mg/dLNormal0.1-0.9[facility] Comment on above:Performed By: #### [id number] #### [facility] [address] [place], [place] [address]Qalh Total0.7 mg/dLNormal0.0-1.1FHighland District Hospital Comment on above:Performed By: #### [id number] #### [facility] [address] [place], [place] [address]Snsgbspx (S) [Mass/Vol]3.8 g/dLNormal1.4-4.0Uc Medical CenterComment on above:Performed By: #### [id number] #### [facility] [address] [place], [place] [address]Jivirjz [Mass/Vol]9.0 g/dLHigh6.0-7.8Uc Medical CenterComment on above:Performed By: #### [id number] #### [facility] [address] [place], [place] [address]Frobrd Levelon 53-54-4002Reouun Lvl21 unit/PTzccwd08-28EfomgzUc Medical CenterComment on above:Performed By: #### [id number] #### [facility] [address] [place], [place] [address]AM with Cult Rflxon 91-24-5265Eghmm (U)YellowNormalYellowUc Medical CenterComment on above:Order Comment: Added by Discern Expert Result Comment: Microscopic readings are only performed on those samples that meet specific criteria set forth by [facility]. Performed By: #### [id number] #### [facility] [address] [place], [place] [address]Yjycbvy (U) [Mass/Vol]NegativeNormalNegativeUc Medical CenterComment on above:Order Comment: Added by Husam ExpertPerformed By: #### [id number] #### [facility] [address] [place], [place] [address]Norfoxt Ql (U)3+ mg/dLAbnormalNegMercy Health Clermont HospitalComment on above:Order Comment: Added by Husam ExpertPerformed By: #### [id number] #### [facility] [address] [place], [place] [address]AC BloodNegativeNormalNegMercy Health Clermont Hospital Comment on above:Order Comment: Added by Husam ExpertPerformed By: #### [id number] #### [facility] [address] [place], [place] [address]MI BacteriaTraceNormalTraceUc Medical CenterComment on above:Order Comment: Added by Husam ExpertPerformed By: #### [id number] #### [facility] [address] [place], [place] [address]FF ClarityTurbidAbnormalClearFHighland District HospitalComment on above:Order Comment: Added by Discern ExpertPerformed By: #### [id number] #### [facility] [address] [place], [place] [address]LN Hyal Thtg1-8Slarau6-8DvmnawHighland District HospitalComment on above:Order Comment: Added by Discern ExpertPerformed By: #### [id number] #### [facility] [address] [place], [place] [address]YU Leuk Est75 Lesli/uLAbnormalNegativeUc Medical Center Comment on above:Order Comment: Added by Husam ExpertPerformed By: #### [id number] #### [facility] [address] [place] [address]BR MucousTraceNormalNegMercy Health Clermont HospitalComment on above:Order Comment: Added by Husam ExpertPerformed By: #### [id number] #### [facility] [address] [place] [address]KN NitriteNegativeNormalNegMercy Health Clermont Hospital Comment on above:Order Comment: Added by Husam ExpertPerformed By: #### [id number] #### [facility] [address] [place] [address]CA pH6.5Invalid Interpretation Code5.0-9.0Uc Medical CenterComment on above:Order Comment: Added by Husam ExpertPerformed By: #### [id number] #### [facility] [address] [place], [place] [address]FN Protein1+ mg/dLAbnormalNegMercy Health Clermont Hospital Comment on above:Order Comment: Added by Husam ExpertPerformed By: #### [id number] #### [facility] [address] [place] [address]QA EQA2-93Lushtcqf7-3HgtjuhHighland District HospitalComment on above:Order Comment: Added by Husam ExpertPerformed By: #### [id number] #### [facility] [address] [place], [place] [address]RH Spec Grav1.038Invalid Interpretation Code1.005-1.030Uc Medical CenterComment on above:Order Comment: Added by Discern Expert Performed By: #### [id number] #### [facility] [address] [place], [place] [address]FM Squam Epithelial>10Invalid Interpretation CodeUc Medical CenterComment on above:Order Comment: Added by Discern ExpertPerformed By: #### [id number] #### [facility] [address] [place], [place] [address]AW UrobilinogenNegativeNormalNegativeUc Medical CenterComment on above:Order Comment: Added by Discern ExpertPerformed By: #### [id number] #### [facility] [address] [place], [place] [address]ZW ODF6-35Mgxkpduu2-8CvfzfeHighland District HospitalComment on above:Order Comment: Added by Discern ExpertPerformed By: #### [id number] #### [facility] [address] [place], [place] [address]Xpskmnaywpnt (U) [Mass/Vol]NegativeNormalNegativeUc Medical CenterComment on above:Order Comment: Added by Discern ExpertPerformed By: #### [id number] #### [facility] [address] [place], [place] [address]QO with Cult Rflx SPon 95-09-1084AL Spec DescClean CatchNormal [facility]c Medical CenterComment on above:Performed By: #### [id number] #### [facility] [address] [place], [place] [address]pWRIkz 70-49-5071cGCE21 mL/min/1.73 h3Ptqyul>=59Uc Medical CenterComment on above:Performed By: #### [id number] #### [facility] [address] [place], [place] [address]Cwevd Cultureon 61-43-7628Nuzwfwci identified Cx Nom (U) >100,000 colonies/ml mixed bacterial skin contaminants 2 Days PERFORMED BY: [place] [address] PATHOLOGIST SOFTWARE PROJECT LEAD FRAN NUNEZ M.D.[facility] Physician GroupComment on above: Performed By: #### [id number] [id number], [id number] #### [facility] , #### OBUDS #### [place] [address] USAUrine Cultureon 04-18-1955Niimaiar identified Cx Nom (U) <9,000 colonies/ml mixed bacterial skin contaminants 2 Days PERFORMED BY: [place] [address] PATHOLOGIST SOFTWARE PROJECT LEAD FRAN NUNEZ M.D.[facility] Physician GroupComment on above: Performed By: #### CUU #### [place] [address] USAUrine cultureOrdered By: Jasmeet Dahl on 21-68-8740Nheohbkt identified Cx Nom (U)Urine cultureMckitrick HospitalUrine Cultureon 43-06-5990Qlcvvees identified Cx Nom (U)>100,000 colonies/ml mixed bacterial skin contaminants 2 Days PERFORMED BY: [place] [address] PATHOLOGIST SOFTWARE PROJECT LEAD IDANIA GODOY M.D.[facility] Physician GroupComment on above: Performed By: #### CUU #### [place] [id number] USACT Abdomen/Pelvis w/ Contraston 52-42-9643FO Abdomen/Pelvis w/ ContrastExam Date/Time: 01/16/2025 18:35 EST [...] Dolan MD Transcribed by: KIRA Technologist: [facility] CenterCT Chest w/ Contraston 79-35-6586NT Chest w/ ContrastExam Date/Time: 01/16/2025 18:35 EST [...] Anselmo Dolan MD Transcribed by: KIRA Technologist: [facility] HospitalCT Head or Brain w/o Contraston 94-71-0407RT Head or Brain w/o ContrastExam Date/Time: 01/16/2025 [...] Anselmo Dolan MD Transcribed by: KIRA Technologist: [facility] HospitalCT Spine Cervical w/o Contraston 40-57-2965MT Spine Cervical w/o ContrastExam Date/Time: 01/16/2025 18:31 [...] Anselmo Dolan MD Transcribed by: KIRA Technologist: [facility] CenterED Note-Physicianon 73-89-7133IN Note-PhysicianED Note-Physician Basic Information Time Seen: Rashaad [...] of Problems Differential Diagnosis: [] [facility] Data External documents reviewed: [] My [...] day(s), # 21 tab(s), Refills(s) 0, Pharmacy: [facility]/pharmacy #[id number], 157, cm, 01/16/25 17:56:00 EST, [...] food, # 20 tab(s), Refills(s) 0, Pharmacy: [facility]/pharmacy #[id number], 157, cm, 01/16/25 17:56:00 EST, Height/Length Dosing, 95, kg, 01/16/25 17:56:00 EST, Weight Dosing promethazine, 12.5 mg = 0.5 tab(s), Tab, Oral, Once, Stop date 01/16/25 19:41:00 EST, STAT, Start date 01/16/25 19:41:00 EST, 01/16/25 19:41:00 EST promethazine, 12.5 mg = 1 tab(s), Oral, q6hr, PRN for nausea/vomiting, # 10 tab(s), Refills(s) 0, Pharmacy: [facility]/pharmacy #[id number], 157, cm, 01/16/25 17:56:00 EST, Height/Length Dosing, 95, kg, 01/16/25 17:56:00 EST, Weight Dosing ABO/Rh ABO/Rh History Check Antibody Screen Basic Metabolic Panel Beta hCG Qual Blood Bank ID# CBC w/ Auto Diff CT Abdomen/Pelvis w/ Contrast CT Chest w/ Contrast CT Head or Brain w/o Cont (more content not included)...[facility] HospitalComment on above:Result Comment: Electronically Signed By: Rashaad Albrecht PA-C\.br\Date and Time Signed: 01/16/2522:30 EST\.br\Electronically Co-Signed By: August Bermudez M.D.\.br\Date and Time Co-Signed: 01/17/25 08:51 ESTXR Knee Complete 4+ Views Lefton 34-67-3447WP Knee Complete 4+ Views LeftExam Date/Time: 01/16/2025 [...] Carlos Araya DO Transcribed by: KIRA Technologist: [facility] SystemXR Knee Complete 4+ Views Righton 80-06-6704IQ Knee Complete 4+ Views RightExam Date/Time: 01/16/2025 [...] FINAL REPORT Dictated: 01/17/2025 9:06 am Carlos Aryaa DO Signed (Electronic Signature): 01/17/2025 9:06 am Signed by: Carlos Araya DO Transcribed by: KIRA Technologist: AMDWVUMedicine Harrison Community HospitalABO/Rhon [id number]/RhPositiveInvalid Interpretation [facility] Comment on above:Performed By: #### [id number] #### [facility] [address] [place], [place] [address]NHV/Rh History Checkon 04-31-2392XRW/Rh History CheckVerified Hx Blood TypeNoThe Surgical Hospital at SouthwoodsComment on above:Performed By: #### [id number] #### [facility] [address] [place], [place] [address]WMJDco 82-08-2022KFVI Gel InterpNegativeWVUMedicine Harrison Community HospitalComment on above:Performed By: #### [id number] #### [facility] [address] [place], [place] [address]K hCG Qualon 34-60-0740Yutw HCG ( test) QlNegative [facility] HospitalComment on above:Performed By: #### [id number] #### [facility] [address] [place], [place] [address]PUDLY BANKOrdered By: Virginia Mccain on 56-43-4884XUH/Rh Interp PositiveInvalid Interpretation [facility] BB SubsectionABSC Gel InterpNegative (01/16/25 7:26 PM)NormalINTEGRIS B[facility]IST [facility] [place] BB SubsectionBMPon 27-52-7430Cxrys gap [Moles/Vol]20 mmol/LHigh6-16Uc Medical CenterComment on above:Performed By: #### [id number] #### [facility] [address] [place], [place] [address]Jhqlzpj [Mass/Vol]10.9 mg/dLNormal8.9-11.1FHighland District HospitalComment on above:Performed By: #### [id number] #### [facility] [address] [place], [place] [address]Fjvtvluc [Moles/Vol]101 mmol/GVwcwlr245-657AjdfxkUc Medical CenterComment on above:Performed By: #### [id number] #### [facility] [address] [place], [place] [address]QR5 [Moles/Vol]22 mmol/GRgckww50-99EvzrehUc Medical Center Comment on above:Performed By: #### [id number] #### [facility] [address] [place], [place] [address]Xqukxwblbv [Mass/Vol]0.9 mg/dLNormal0.5-1.3FHighland District HospitalComment on above:Performed By: #### [id number] #### [facility] [address] [place], [place] [address]Yyqxoly [Mass/Vol]116 mg/bZUanhjb52-264YaryujUc Medical CenterComment on above:Performed By: #### [id number] #### [facility] [address] [place], [place] [address]Qdjxpffmh [Moles/Vol]3.3 mmol/LLow3.5-5.3FHighland District HospitalComment on above:Performed By: #### [id number] #### [facility] [address] [place], [place] [address]Rqssko [Moles/Vol]140 mmol/QDqubix559-425RkjyayUc Medical CenterComment on above:Performed By: #### [id number] #### [facility] [address] [place], [place] [address]Hcjd nitrogen [Mass/Vol]23 mg/dLHigh5-21Uc Medical CenterComment on above:Performed By: #### [id number] #### [facility] [address] [place], [place] [address]Gzdp nitrogen/Creatinine [Mass ratio]26 No FebglIpqk09-95AwvqwpUc Medical CenterComment on above:Performed By: #### [id number] #### [facility] [address] [place], [place] [address]Axkfg Bank ID#on [id number]#[id number] Interpretation CodeUc Medical CenterComment on above:Performed By: #### [id number] #### [facility] [address] [place], [place] [address]WCV w/ Auto Diffon 46-18-6062Dsqylanwr/100 WBC (Bld)0.3 %Normal 0.0-2.0Uc Medical CenterComment on above:Performed By: #### [id number] #### [facility] [address] [place] [address]Mzbobrvpj/Leukocytes Auto (Bld) [Pure # fraction]0.0 E9/LNormal 0.0-0.2FHighland District HospitalComment on above:Performed By: #### [id number] #### [facility] [address] [place] [address]Xghxfvrlvuk (Bld) [#/Vol]0.0 E9/LNormal0.0-0.5FHighland District HospitalComment on above:Performed By: #### [id number] #### [facility] [address] [place], [place] [address]Xyvqhmdsxbe/100 WBC (Bld)0.0 %Normal0.0-8.0Uc Medical CenterComment on above:Performed By: #### [id number] #### [facility] [address] [place], [place] [address]Ypxunqbhhkj distribution width (RBC) [Ratio]13.7 %Normal 10.9-14.2FHighland District HospitalComment on above:Performed By: #### [id number] #### [facility] [address] [place] [address]Lvnpamjfku (Bld) [Volume fraction]46.9 %High34.0-46.0Uc Medical CenterComment on above:Performed By: #### [id number] #### [facility] [address] [place] [address]Slbldqyvoa (Bld) [Mass/Vol]16.0 g/zHLgrsem25.0-16.0[facility] Medical CenterComment on above:Performed By: #### [id number] #### [facility] [address] [place] [address]Wjnuiqhvhmb (Bld) [#/Vol]1.4 E9/LNormal1.0-4.0[facility]c Medical CenterComment on above:Performed By: #### [id number] #### [facility] [address] [place] [address]Qjxpglfvwsv/100 WBC (Bld)11.6 %Low14.0-50.0Uc Medical CenterComment on above:Performed By: #### [id number] #### [facility] [address] [place] [address]PQR (RBC) [Entitic mass]28.8 auRkdinx03.0-34.0Uc Medical CenterComment on above:Performed By: #### [id number] #### [facility] [address] [place] [address]IZEL (RBC) [Mass/Vol]34.1 g/yEAxuiki85.4-36.0[facility] Medical CenterComment on above:Performed By: #### [id number] #### [facility] [address] [place] [address]HWK (RBC) [Entitic vol]84.3 lCKfqkuo42.0-100.0[facility] Medical CenterComment on above:Performed By: #### [id number] #### [facility] [address] [place] [address]Uffwjkwhd (Bld) [#/Vol]0.6 E9/LNormal0.2-1.0[facility]c Medical CenterComment on above:Performed By: #### [id number] #### [facility] [address] [place] [address]Ilchxpejjoo (Bld) [#/Vol]10.0 E9/LHigh2.0-7.5FHighland District HospitalComment on above:Performed By: #### [id number] #### [facility] [address] [place] [address]Ctqrnlildmu/100 WBC (Bld)83.4 %High36.0-75.0Uc Medical CenterComment on above:Performed By: #### [id number] #### [facility] [address] [place] [address]Lzqnwcap mean volume (Bld) [Entitic vol]8.9 fLNormal6.4-10.8 [facility] Medical CenterComment on above:Performed By: #### [id number] #### [facility] [address] [place] [address]Icnuuiphp (Bld) [#/Vol]300.0 E9/QXlerdv530.0-500.0[facility] Medical CenterComment on above:Performed By: #### [id number] #### [facility] [address] [place] [address]DOO (Bld) [#/Vol]5.6 E12/LNormal4.3-5.9Uc Medical CenterComment on above:Performed By: #### [id number] #### [facility] [address] [place] [address]RYB corrected for nucl RBC Auto (Bld) [#/Vol]12.0 E9/LHigh 4.0-11.0[facility] Medical CenterComment on above:Performed By: #### [id number] #### [facility] [address] [place] [address]XKIGDUCONIajasvb By: SYSTEM SYSTEM on 83-58-4986Hmjhuca [Mass/Vol]5.5 g/dLHigh3.3 - 5.0 gm/dLRemisol ChemAlbumin/Globulin [Mass ratio] 1.5 {ratio}Normal1.1 - 2.2Remisol ChemALP [Catalytic activity/Vol]71 [iU]/d Hwulns47 - 98 Int._Unit/LRemisol ChemALT No additional P-5'-P [Catalytic activity/Vol]42 [iU]/dNormal6 - 46 Int._Unit/LRemisol ChemAnion gap [Moles/Vol] 20 mmol/LHigh6 - 16 mEq/LRemisol ChemAST [Catalytic activity/Vol]19 [iU]/dNormal 5 - 43 Int._Unit/LRemisol ChemBilirubin [Mass/Vol]1.0 mg/dLNormal0.0 - 1.1 mg/dL Remisol ChemBilirubin.direct [Mass/Vol]0.2 mg/dLNormal0.0 - 0.4 mg/dLRemisol ChemBilirubin.indirect [Mass or moles/Vol]0.8 mg/dLNormal0.1 - 0.9 mg/dLRemisol ChemCalcium [Mass/Vol]10.9 mg/dLNormal8.9 - 11.1 mg/dLRemisol ChemChloride [Moles/Vol]101 mmol/AUkmikh103 - 111 mmol/LRemisol ChemCO2 [Moles/Vol]22 mmol/L Jfmldv03 - 31 mmol/LRemisol ChemCreatinine [Mass/Vol]0.9 mg/dLNormal0.5 - 1.3 mg/dLRemisol XyqxvEKP91 mL/min/1.73 j5Epkzwf>=59mL/min/1.73 b5Digxwsi Chem Ethanol Lvlmg/dLNormal<=11mg/dLRemisol ChemGlobulin (S) [Mass/Vol]3.6 g/dLNormal 1.4 - 4.0 gm/dLRemisol ChemGlucose [Mass/Vol]116 mg/qOHuospy71 - 199 mg/dL Remisol ChemLactic Acid Lvl1.6 mmol/LNormal0.5 - 2.2 mmol/LRemisol ChemLipase [Catalytic activity/Vol]8 U/LLow13 - 58 unit/LRemisol ChemPotassium [Moles/Vol] 3.3 mmol/LLow3.5 - 5.3 mmol/LRemisol ChemProtein [Mass/Vol]9.1 g/dLHigh6.0 - 7.8 gm/dLRemisol ChemSodium [Moles/Vol]140 mmol/EQauxws647 - 145 mmol/LRemisol Chem Troponin HS3.40 pg/mLLow10.10 - 27.10 pg/mLRemisol ChemComment on above: Interpretive Data: The 95% CI (Confidence Interval) PPV (Positive Predictive Value) for myocardial infarction in females is 38 pg/mL, in males 51 pg/mL. The results should be used in conjunction withclinical conditions of myocardial infarction. (Access High Sensitivity Troponin I Instructions For Use, [employer] [facility], June 2018)Urea nitrogen [Mass/Vol]23 mg/dLHigh5 - 21 mg/dLRemisol ChemUrea nitrogen/Creatinine [Mass ratio]26 mg/rnYyzq79 - 20Remisol ChemCOAGULATION Ordered By: Ghazal Morrell on 06-04-3463iFZB Coag (PPP) [Time]23.1 sLow25.1 - 36.5 second(s)[facility] [place] Auto CoagComment on above:Interpretive Data: Parameter 15 [...] same coagulation reagent and instrumentation as [facility]. Currently there are no coagulation studies available worldwide for children to 14 days, andno normal ranges. Heparin therapeutic range (represented by Anti-Factor Xa activity of 0.2 - 0.4 U/mL) corresponds to PTT of 56.6 - 109.0 sec.INR Coag (PPP) [Relative time]1.10 {INR}Invalid Interpretation CodeINTEGRIS BAPTIST [facility] [place] Auto CoagComment on above:Interpretive Data: INR results are specifically intended to assess patients stabilized on long-term Anticoagulation therapy suggested INR s Less Intensive Anticoagulation 2.0 3.0 Conventional Range 3.0 4.5PT Coag (PPP) [Time]12.3 sNormal9.4 - 12.5 second(s) [facility] [place] Auto CoagComment on above:Interpretive Data: 15 days [...] same coagulation reagent and instrumentation as [facility]. Currently there are no coagulation studies available worldwide for children to 14 days, andno normal ranges.ED Clinical Summaryon [id number] Clinical SummaryED Clinical Summary [place] [address] ED Clinical Summary Person Information Name: PILI PARIKH/[facility] Age: 19 Years : 2005 Sex: Female Language: Qatari PCP: MODESTA CHAND CNP Marital Status: Single [...] 01/16/2025 20:36:16 01/16/2025 20:36:16 01/16/2025 20:36:16 ADDRESS: [place] [facility] [id number] PHYS DOC NOTES: MEDICAL INFORMATION: Prescriptions Given: New Medications [facility]/pharmacy #[id number], [address], [place] [id number], [phone] cyclobenzaprine (cyclobenzaprine 5 mg Tab) 1 Tablets By Mouth 3 times a day for 7 Days. Refills: 0. Medications to Continue Taking That Have Changed [facility]/pharmacy #[id number], [address], [place] [id number], [phone] START: naproxen (naproxen 500 mg Tab) 1 [...] Contusion; Fall Prevention in the Home, Adult, Lrtt-kf-Vwlu Follow up: With: Address: When: MODESTA CHAND [address] [place] [phone] Business () In 3 days 2025 Comments: Call Dr for diagnosis based follow up DIAGNOSIS: Abdominal contusion; Fall down steps; [facility] Patient Summaryon [id number] Patient SummaryED Patient Summary [address] [address] Patient Discharge Instructions Person Information Name: PILI PARIKH Age: 19 Years Arrival Date: 01/16/2025 17:51:31 Discharge Diagnosis: Abdominal contusion; Fall down steps; Knee contusion Primary Care Physician: MODESTA CHAND CNP Provider Information Primary Provider: August Bermudez M.D. [facility] Caretaker:Rashaad Albrecht PA-C The exam and treatment you received in the Emergency Department were for an urgent problem and are not intended as complete care. It is important that you follow up with a doctor, nurse practitioner,or physician???s legal executive assistant for ongoing care. If your symptoms become worse or you do not improve asexpected and you are unable to reach your usual health care provider, you should return to the Emergency Department. We are available 24 hours a day. PILI PARIKH has been given the following list of patient education materials, prescriptions andfollow-up instructions: Follow-up Instructions: With: Address: When: MODESTA CHAND [address] [place] [address] [place] [phone] Business (1) In 3 days 2025 Comments: Call Dr for diagnosis based follow up In the event that this physician does not participate in your insurance network, please consult with your insurance company to find a nearby participating provider. Patient Education Materials: RICE Therapy for Routine Care of Injuries; Contusion; Fall Prevention in the Home, Adult, Wvkm-jx-Rise A MESSAGE TO ALL PATIENTS REGARDING OPIOIDS PRESCRIPTION OPIOIDS: WHAT YOU NEED TO KNOW Prescription opioids can be used to help relieve rbspnyjr-xh-egolng pain and are often prescribed following a [...] Administration (www.fda.gov/Drugs/ResourcesForYou). ??? Visit (more content not included)...NormalUc Medical CenterEthanol on 58-09-5653Jlnfqwc Lvl<10Normal<=11Uc Medical CenterComment on above:Performed By: #### [id number] #### [facility] [address] [place] [address] [id number] By: SYSTEM SYSTEM on 87-35-6168Jnkaeqoam/100 WBC (Bld)0.3 %Normal0.0 - 2.0 %Remisol HemeBasophils/Leukocytes Auto (Bld) [Pure # fraction]0.0 E9/LNormal0.0 - 0.2 E9/LRemisol HemeEosinophils (Bld) [#/Vol]0.0 E9/LNormal0.0 - 0.5 E9/LRemisol HemeEosinophils/100 WBC (Bld)0.0 %Normal0.0 - 8.0 %Remisol HemeErythrocyte distribution width (RBC) [Ratio]13.7 %Jnufek76.9 - 14.2 %Remisol HemeHematocrit (Bld) [Volume fraction]46.9 %High34.0 - 46.0 % Remisol HemeHemoglobin (Bld) [Mass/Vol]16.0 g/jRCcljue34.0 - 16.0 gm/dLRemisol HemeLymphocytes (Bld) [#/Vol]1.4 E9/LNormal1.0 - 4.0 E9/LRemisol Heme Lymphocytes/100 WBC (Bld)11.6 %Low14.0 - 50.0 %Remisol HemeMCH (RBC) [Entitic mass]28.8 epLtihrd53.0 - 34.0 pgRemisol HemeMCHC (RBC) [Mass/Vol]34.1 g/dLNormal 31.4 - 36.0 gm/dLRemisol HemeMCV (RBC) [Entitic vol]84.3 xXVtpmhv29.0 - 100.0 fL Remisol HemeMonocytes (Bld) [#/Vol]0.6 E9/LNormal0.2 - 1.0 E9/LRemisol Heme Monocytes/100 WBC (Bld)4.7 %Normal4.0 - 14.0 %Remisol HemeNeutrophils (Bld) [#/Vol]10.0 E9/LHigh2.0 - 7.5 E9/LRemisol HemeNeutrophils/100 WBC (Bld)83.4 % High36.0 - 75.0 %Remisol HemePlatelet mean volume (Bld) [Entitic vol]8.9 fL Normal6.4 - 10.8 fLRemisol HemePlatelets (Bld) [#/Vol]300.0 E9/CPmzlyc719.0 - 500.0 E9/LRemisol HemeRBC (Bld) [#/Vol]5.6 E12/LNormal4.3 - 5.9 E12/LRemisol HemeWBC corrected for nucl RBC Auto (Bld) [#/Vol]12.0 E9/LHigh4.0 - 11.0 E9/L Remisol HemeHep Func Panelon 20-91-8750Jcolbfj [Mass/Vol]5.5 g/dLHigh3.3-5.0 Uc Medical CenterComment on above:Performed By: #### [id number] #### [facility] [address] [place], [place] [address]Gyerwov/Globulin (S) [Mass conc ratio]1.6Phxgkw1.1-2.2FHighland District HospitalComment on above:Performed By: #### [id number] #### [facility] [address] [place], [place] [address]VTH [Catalytic activity/Vol]71 Int._Unit/CNugfzo07-58QpfnqjUc Medical CenterComment on above:Performed By: #### [id number] #### [facility] [address] [place] [address]AMK No additional P-5'-P [Catalytic activity/Vol]42 Int._Unit/L Normal6-46Uc Medical CenterComment on above:Performed By: #### [id number] #### [facility] [address] [place] [address]QVZ [Catalytic activity/Vol]19 Int._Unit/LNormal5-43Uc Medical CenterComment on above:Performed By: #### [id number] #### [facility] [address] [place], [place] [address]Ivdlzejll [Mass/Vol]1.0 mg/dLNormal0.0-1.1FHighland District HospitalComment on above:Performed By: #### [id number] #### [facility] [address] [place] [address]Sdoicizdp.direct [Mass/Vol]0.2 mg/dLNormal0.0-0.4FHighland District HospitalComment on above:Performed By: #### [id number] #### [facility] [address] [place], [place] [address]Jezqnhwov.indirect [Mass or moles/Vol]0.8 mg/dLNormal0.1-0.9 [facility]c Medical CenterComment on above:Performed By: #### [id number] #### [facility] [address] [place], [place] [address]Yyxvsrtq (S) [Mass/Vol]3.6 g/dLNormal1.4-4.0Uc Medical CenterComment on above:Performed By: #### [id number] #### [facility] [address] [place], [place] [address]Lymhvhf [Mass/Vol]9.1 g/dLHigh6.0-7.8[facility]c Medical CenterComment on above:Performed By: #### [id number] #### [facility] [address] [place] [address]Kkkiiv Acidon 84-95-8379Scziuq Acid Lvl1.6 mmol/LNormal0.5-2.2 [facility] Medical CenterComment on above:Performed By: #### [id number] #### [facility] [address] [place], [place] [address]Ckkzgl Levelon 17-47-0985Gmuiof [Catalytic activity/Vol]8 U/L Vwf85-39EkrkitUc Medical CenterComment on above:Performed By: #### [id number] #### [facility] [address] [place], [place] [address]AY & PTTon 26-85-1283mEFP Coag (PPP) [Time]23.1 second(s)Low 25.1-36.5FHighland District HospitalComment on above:Result Comment: Parameter 15 days [...] same coagulation reagent and instrumentation as [facility]. Currently there are no coagulation studies available worldwide for children to 14 days, andno normal ranges. Heparin therapeutic range (represented by Anti-Factor Xa activity of 0.2 - 0.4 U/mL) corresponds to PTT of 56.6 - 109.0 sec.Performed By: #### [id number] #### [facility] [address] [place], [place] [address]MVB Coag (PPP) [Relative time]1.10 {INR}Invalid Interpretation CodeUc Medical CenterComment on above:Result Comment: INR results are specifically intended to assess patients stabilized on long-term Anticoagulation therapy suggested INR???s ???Less Intensive Anticoagulation??? 2.0 ??? 3.0 Conventional Range 3.0 ??? 4.5Performed By: #### [id number] #### [facility] [address] [place], [place] [address]HF Coag (PPP) [Time]12.3 second(s)Normal9.4-12.5Fisher R [facility] Shock Trauma CenterComment on above:Result Comment: 15 days - [...] same coagulation reagent and instrumentation as [facility]. Currently there are no coagulation studies available worldwide for children to 14 days, andno normal ranges.Performed By: #### [id number] #### [facility] [address] [place], [place] [address]Evi-Irwfceo Noteon 85-64-2194Tyh-Arrival NotePre-Arrival Note Pre-Arrival Summary Name: ruben Current Date: 01/16/2025 17:51:59 EST Gender: Female Date of : Age: 19 Pre-Arrival Type: EMS ETA: 01/16/2025 18:12:00 EST Primary Care Physician: Presenting Problem: fall Pre-Arrival User: Referring Source: Location: Completion Date/Time: 01/16/2025 17:42:00 [facility] Emergency Department Pre-Hospital Report Form Vital Signs: Pre-Hospital Report: Treatment in Route: Response to Treatment: Misc. Issues:NormalMount Carmel Health SystemEROLOGYOrdered By: Ghazal Morrell on 84-01-7038Efpf HCG ( test) QlNegative (01/16/25 7:26 PM)[facility]ly [facility] Man SeroTroponinon 00-45-5135Xgdqbeci HS3.40 pg/mL Low10.10-27.10Uc Medical CenterComment on above:Result Comment: The 95% CI (Confidence Interval) PPV (Positive Predictive Value) for myocardial infa rction in females is 38 pg/mL, in males 51 pg/mL. The results should be used in conjunction with clinical conditions of myocardial infarction. (Access High Sensitivity Troponin I Instructions For Use, [place], June 2018)Performed By: #### [id number] #### [facility] [address] [place], [place] [address]gCHYzi 28-84-6607sCWW23 mL/min/1.73 e2Luhhnj>=59Uc Medical CenterComment on above:Performed By: #### [id number] #### [facility] [address] [place], [place] [address]Ifaqyfk aminotransferase [Enzymatic activity/volume] in Serum or PlasmaOrdered By: Rd Brown on 00-90-4194ZYX [Catalytic activity/Vol] Alanine aminotransferase [Enzymatic activity/volume] in Serum or Plasma7 Mckitrick HospitalAlbumin [Mass/volume] in Serum or Plasma by Bromocresol green (BCG) dye binding methoOrdered By: Rd Brown on 10-28-2024 Albumin BCG dye [Mass/Vol]Albumin [Mass/volume] in Serum or Plasma by Bromocresol green (BCG) dye binding metho3.5-5.7FThe Bellevue HospitalAlkaline phosphatase [Enzymatic activity/volume] in Serum or PlasmaOrdered By: Rd Borwn on 78-08-3353HFT [Catalytic activity/Vol]Alkaline phosphatase [Enzymatic activity/volume] in Serum or Nndbep99-175QuylxzdthMckitrick HospitalAmphetamine Screen Ql (U)Ordered By: Rd Brown on 10-28-2024 Amphetamines Ql (U)Amphetamines screenNegativeMckitrick Hospital Appearance of UrineOrdered By: Rd Brown on 31-03-1281Wodxdqdljn (U)Urine appearanceAbnormalClearMckitrick HospitalAspartate aminotransferase [Enzymatic activity/volume] in Serum or PlasmaOrdered By: Rd Brown on 86-77-0262MZK [Catalytic activity/Vol]Aspartate aminotransferase [Enzymatic activity/volume] in Serum or Tfuars95-00YfhspcmiiMckitrick HospitalBacteria [Presence] in Urine by AutomatedOrdered By: Rd Brown on 53-56-5227Qskijdbk Auto Ql (U)Bacteria [Presence] in Urine by AutomatedHighNone SeenMckitrick HospitalBarbiturates [Presence] in Urine by Screen methodOrdered By: Rd Brown on 57-55-4420Rrpxglfabffp Screen Ql (U) Barbiturates [Presence] in Urine by Screen methodNegFayette County Memorial HospitalBasic Metabolic Panelon 95-52-9508Mqmld gap [Moles/Vol]19.5 mmol/L High6.0-15.0The [facility] Physician GroupComment on above:Performed By: #### PAP [id number], GCCHLAMTRI #### [facility] , #### OBUDS #### [facility] [address] [place] [address] USACalcium [Mass/Vol]10.4 mg/dLHigh8.6-10.3The [facility] Physician GroupComment on above:Performed By: #### PAP [id number], GCCHLAMTRI #### [facility] , #### OBUDS #### [facility] [address] [place] [address] USAChloride [Moles/Vol]94 mmol/TXxn46-770Myo [facility] Physician GroupComment on above:Performed By: #### PAP [id number], GCCHLAMTRI #### [facility] , #### OBUDS #### [facility] [address] [place] [address] USACO2 [Moles/Vol]26.3 mmol/HXjhsfv09.0-31.0The [facility] Physician GroupComment on above:Performed By: #### PAP [id number], GCCHLAMTRI #### [facility] , #### OBUDS #### [facility] [address] [place] [address] USACreatinine [Mass/Vol]0.91 mg/dLNormal0.60-1.20The [facility] Physician GroupComment on above:Performed By: #### PAP [id number], GCCHLAMTRI #### [facility] , #### OBUDS #### [facility] [address] [place] [address] USACreatinine Clr Calc Gqtmcljp164.62NormalThe [facility] Physician GroupComment on above:Performed By: #### PAP [id number], GCCHLAMTRI #### [facility] , #### OBUDS #### [facility] [address] [place] [address] USAGFR/1.73 sq M.predicted MDRD (S/P/Bld) [Vol rate/Area] mL/min/{1.73_m2}NormalThe [facility] Physician GroupComment on above:Performed By: #### PAP [id number], GCCHLAMTRI #### [facility] , #### OBUDS #### [place] [address] USAGlucose [Mass/Vol]91 mg/cXSqbthr44-590Amr [facility] Physician GroupComment on above:Result Comment: Random Glucose Reference Range is dependent on time and content of last meal. Glucose of more than 200 mg/dL in a nonstressed, ambulatory subject supports the diagnosis of Diabetes Mellitus. ADA recommended reference rangePerformed By: #### PAP [id number], GCCHLAMTRI #### [facility] , #### OBUDS #### [place] [address] USAPotassium [Moles/Vol]2.8 mmol/LOff scale low3.5-5.1The [facility] Physician GroupComment on above:Result Comment: Critical Result Called to and read back by: MATT BUSH at: 10/28/2024 19:29:56 by:[id number] By: #### PAP [id number], GCCHLAMTRI #### [facility] , #### OBUDS #### [place] [address] USASodium [Moles/Vol]137 mmol/ZPztybn280-122Xew [facility] Physician GroupComment on above:Performed By: #### PAP [id number], GCCHLAMTRI #### [facility] , #### OBUDS #### [facility] [address] [place] [address] USAUrea nitrogen [Mass/Vol]21 mg/dLNormal7-25The [facility] Physician GroupComment on above:Performed By: #### PAP [id number], GCCHLAMTRI #### [facility] , #### OBUDS #### [place] [address] USABasophils Auto (Bld) [#/Vol]Ordered By: Rd Brown on 16-18-2962Rsgbjbkcn (Bld) [#/Vol]Automated basophil count0.0-0.2FThe Bellevue HospitalBasophils/100 WBC Auto (Bld)Ordered By: Rd Brown on 60-39-6064Qgulwcqqe/100 WBC (Bld)Automated basophil %.Mckitrick HospitalBenzodiazepines Screen Ql (U)Ordered By: Rd Brown on 10-28-2024 Benzodiazepines Ql (U)Benzodiazepines [Presence] in Urine by Screen method NegativeMckitrick HospitalBenzoylecgonine [Presence] in Urine by Screen methodOrdered By: Rd Brown on 87-26-4620Avrygjxmvvqdlaw Screen Ql (U) Benzoylecgonine [Presence] in Urine by Screen methodNegativeMckitrick HospitalBilirubin Test strip Ql (U)Ordered By: Rd Brown on 10-28-2024 Bilirubin Ql (U)Bilirubin.total [Presence] in Urine by Test stripNegative Mckitrick HospitalBilirubin.direct [Mass/volume] in Serum or PlasmaOrdered By: Rd Brown on 70-15-8692Kzzdiqkoc.direct [Mass/Vol] Bilirubin.direct [Mass/volume] in Serum or PlasmaHigh0.03-0.18FThe Bellevue HospitalBilirubin.total [Mass/volume] in Serum or PlasmaOrdered By: Rd Brown 30-58-2917Neabsfwlm [Mass/Vol]Bilirubin.total [Mass/volume] in Serum or PlasmaHigh0.3-1.0M[facility]rick HospitalCalcium [Mass/volume] in Serum or PlasmaOrdered By: Rd Brown 83-13-8705Bvdywub [Mass/Vol] Calcium [Mass/volume] in Serum or PlasmaHigh8.6-10.3FThe Bellevue HospitalCannabinoids [Presence] in Urine by Screen methodOrdered By: Rd Brown on 91-93-8454Skjfjlbqhvqc Screen Ql (U)Cannabinoids [Presence] in Urine by Screen methodHighNegativeMckitrick HospitalComment on above:These are unconfirmed results and should not be used for legal purposes. Drug Cut-Off Concentration: AMPH 1000 ng/mL NIKOLAS 200 ng/mL SHRAVAN 200 ng/mL COCM 300 ng/mL OP 300 ng/mL PCP 25 ng/mL THC 20 ng/mLCarbon dioxide, total [Moles/volume] in Serum or PlasmaOrdered By: Rd Brown on 31-30-0583LN5 [Moles/Vol]Carbon dioxide, total [Moles/volume] in Serum or Ghzktg56.0-31.0Mckitrick HospitalChloride [Moles/volume] in Serum or PlasmaOrdered By: Rd Brown on 94-39-9552Ywwtdkps [Moles/Vol]Chloride [Moles/volume] in Serum or PlasmaLow 98-107Mckitrick HospitalColor Auto (U)Ordered By: Rd Brown on 26-12-4641Otwep (U)Color of Urine by AutoAbnormalYellowMckitrick HospitalComplete Blood Count Auto Diffon 98-92-8900Diarlivev (Bld) [#/Vol] 0.1 10*3/uLNormal0.0-0.2The [facility] Physician GroupComment on above:Result Comment: PERFORMED BY: [place] [address] PATHOLOGIST SOFTWARE PROJECT LEAD IDANIA GODOY M.D.Performed By: #### PAP [id number], GCCHLAMTRI #### [facility] , #### OBUDS #### [facility] [address] [place] [address] USABasophils/100 WBC (Bld)0.7 %Normal.The [facility] Physician GroupComment on above:Performed By: #### PAP [id number], GCCHLAMTRI #### [facility] , #### OBUDS #### [facility] [address] [place] [address] USAEosinophils (Bld) [#/Vol]0.1 10*3/uLNormal0.0-0.45The [facility] Physician GroupComment on above:Performed By: #### PAP 145236, GCCHLAMTRI #### [facility] , #### OBUDS #### [place] [address] USAEosinophils/100 WBC (Bld)0.6 %Normal.The [facility] Physician GroupComment on above:Performed By: #### PAP [id number], GCCHLAMTRI #### [facility] , #### OBUDS #### [place] [address] USAErythrocyte distribution width (RBC) [Ratio]13.4 %Normal 11.9-15.3The [facility] Physician GroupComment on above:Performed By: #### PAP [id number], GCCHLAMTRI #### [facility] , #### OBUDS #### [place] [address] USAHematocrit (Bld) [Volume fraction]49.2 %High34.0-46.4The [facility] Physician GroupComment on above:Performed By: #### PAP [id number], GCCHLAMTRI #### [facility] , #### OBUDS #### [place] [address] USAHemoglobin (Bld) [Mass/Vol]16.5 g/sMYqnx32.8-15.4The [facility] Physician GroupComment on above:Performed By: #### PAP [id number], GCCHLAMTRI #### [facility] , #### OBUDS #### [place] [address] USALymphocytes (Bld) [#/Vol]2.9 10*3/uLNormal1.00-4.8The [facility] Physician GroupComment on above:Performed By: #### PAP [id number], GCCHLAMTRI #### [facility] , #### OBUDS #### [place] [address] USALymphocytes/100 WBC (Bld)14.7 %Normal.The [facility] Physician GroupComment on above:Performed By: #### PAP [id number], GCCHLAMTRI #### [facility] , #### OBUDS #### [address] (RBC) [Entitic mass]28.7 qhVfcsmq34.7-34.3The [facility] Physician GroupComment on above:Performed By: #### PAP 184087, GCCHLAMTRI #### [facility] , #### OBUDS #### [facility] [address] [place], [place] [address]V (RBC) [Entitic vol]85.7 dWAqmhth47-870Jhz [facility] Physician GroupComment on above:Performed By: #### PAP 345957, GCCHLAMTRI #### [facility] , #### OBUDS #### [facility] [address] [place] [address] USAMean Corpuscular HGB Conc33.5 g/mVOzjdbw32.0-35.0The [facility] Physician GroupComment on above:Performed By: #### PAP [id number], GCCHLAMTRI #### [facility] , #### OBUDS #### [facility] [address] [place] [address] USAMonocytes (Bld) [#/Vol]1.2 10*3/uLHigh0.0-0.8The [facility] Physician GroupComment on above:Performed By: #### PAP 192276, GCCHLAMTRI #### [facility] , #### OBUDS #### [facility] [address] [place] [address] USAMonocytes/100 WBC (Bld)16.96 %Normal0.00-20.00The [facility] Physician GroupComment on above:Performed By: #### PAP [id number], GCCHLAMTRI #### [facility] , #### OBUDS #### [place] [address] USAMonocytes/100 WBC (Bld)5.9 %Normal.The [facility] Physician GroupComment on above:Performed By: #### PAP 296572, GCCHLAMTRI #### [facility] , #### OBUDS #### [facility] [address] [place] [address] USANeutrophils (Bld) [#/Vol]15.5 10*3/uLHigh1.8-7.7The [facility] Physician GroupComment on above:Performed By: #### PAP 031993, GCCHLAMTRI #### [facility] , #### OBUDS #### [place] [address] USANeutrophils/100 WBC (Bld)78.1 %Normal.The [facility] Physician GroupComment on above:Performed By: #### PAP [id number], GCCHLAMTRI #### [facility] , #### OBUDS #### [place] [address] USANRBC%0.1 /100{WBC}Normal0-0.5The [facility] Comment on above:Performed By: #### PAP 430882, GCCHLAMTRI #### [facility] , #### OBUDS #### [facility] [address] [place] [address] USAPlatelet mean volume (Bld) [Entitic vol]8.4 fLNormal 6.3-10.7The [facility] Physician GroupComment on above:Performed By: #### PAP 623851, GCCHLAMTRI #### [facility] , #### OBUDS #### [facility] [address] [place] [address] USAPlatelets (Bld) [#/Vol]333 10*3/oHSyyvzv619-465Gnr [facility] Physician GroupComment on above:Performed By: #### PAP 186715, GCCHLAMTRI #### [facility] , #### OBUDS #### [facility] [address] [place] [address] USARBC (Bld) [#/Vol]5.74 10*6/uLHigh3.60-5.00The [facility] Physician GroupComment on above:Performed By: #### PAP [id number], GCCHLAMTRI #### [facility] , #### OBUDS #### [facility] [address] [place] [address] USAWBC (Bld) [#/Vol]19.8 10*3/uLHigh3.8-11.6The [facility] Physician GroupComment on above:Performed By: #### PAP 750370, GCCHLAMTRI #### [facility] , #### OBUDS #### [place] [address] USACreatinine [Mass/volume] in Serum or PlasmaOrdered By: Rd Brown on 69-32-3597Apeomtzgbm [Mass/Vol]Creatinine [Mass/volume] in Serum or Plasma0.60-1.20Mckitrick HospitalDipstick and Microscopicon 48-18-6694Iwngmhaemc (U)TurbidCritically abnormalClearThe [facility] Physician GroupComment on above:Order Comment: Name Collection Type:: Clean-Voided MidstreamPerformed By: #### ADDONUAPLUS, CUU, UHCG #### [place] [address] USABacteria,Urine1+HighNone SeenThe [facility] Comment on above:Order Comment: Name Collection Type:: Clean-Voided Midstream Performed By: #### ADDONUAPLUS, CUU, UHCG #### [place] [address] USABilirubin,UrineNegativeNormalNegativeHca [facility] Emergency Physician GroupComment on above:Order Comment: Name Collection Type:: Clean- Voided MidstreamPerformed By: #### ADDONUAPLUS, CUU, UHCG #### [facility] [address] [place] [address] USAColor (U)Light-OrangeCritically abnormalYellowHca [facility] Emergency Physician GroupComment on above:Order Comment: Name Collection Type:: Clean-Voided MidstreamPerformed By: #### ADDONUAPLUS, CUU, UHCG #### [facility] [address] [place] [address] USAGlucose Ql (U)NormalNormalNormalThBonner General Hospital Physician GroupComment on above:Order Comment: Name Collection Type:: Clean-Voided MidstreamPerformed By: #### ADDONUAPLUS, CUU, UHCG #### [facility] [address] [place] [address] USAHyaline Casts,Urine9 [LPF]High0-8The [facility] Physician GroupComment on above:Order Comment: Name Collection Type:: Clean-Voided MidstreamPerformed By: #### ADDONUAPLUS, CUU, UHCG #### [facility] [address] [place] [address] USAKetones Ql (U)3+HighNegativeHca [facility] Physician Group Comment on above:Order Comment: Name Collection Type:: Clean-Voided Midstream Performed By: #### ADDONUAPLUS, CUU, UHCG #### [facility] [address] [place], [place] [address] USALeukocyte esterase Test strip Ql (U)3+HighNegativeHca [facility] Emergency Physician GroupComment on above:Order Comment: Name Collection Type:: Clean-Voided MidstreamPerformed By: #### ADDONUAPLUS, CUU, UHCG #### [facility] [address] [place] [address] USAMucus,Urine4+Critically abnormalHca [facility] Emergency Physician GroupComment on above:Order Comment: Name Collection Type:: Clean-Voided MidstreamPerformed By: #### ADDONUAPLUS, CUU, UHCG #### [place] [address] USANitrite,UrineNegativeNormalNegativeThe [facility] Physician GroupComment on above:Order Comment: Name Collection Type:: Clean-Voided MidstreamPerformed By: #### ADDONUAPLUS, CUU, UHCG #### [place] [address] USAOccult Blood,Urine3+HighNegativeThe [facility] Physician GroupComment on above:Order Comment: Name Collection Type:: Clean-Voided MidstreamPerformed By: #### ADDONUAPLUS, CUU, UHCG #### [place] [address] USApH (U)8.0 [pH]Normal5.0-9.0The [facility] Comment on above:Order Comment: Name Collection Type:: Clean-Voided Midstream Performed By: #### ADDONUAPLUS, CUU, UHCG #### [place] [address] USAProtein (U) [Mass/Vol]100 mg/dLHighNegativeThe [facility] Physician GroupComment on above:Order Comment: Name Collection Type:: Clean- Voided MidstreamPerformed By: #### ADDONUAPLUS, CUU, UHCG #### [place] [address] USARBC,UrineInnumerableHigh0-4The [facility] Comment on above:Order Comment: Name Collection Type:: Clean-Voided Midstream Performed By: #### ADDONUAPLUS, CUU, UHCG #### [place] [address] USASpecificy [place],Urine1.046Ygwdhv9.001-1.030The [facility] Physician GroupComment on above:Order Comment: Name Collection Type:: Clean- Voided MidstreamPerformed By: #### ADDONUAPLUS, CUU, UHCG #### [place] [address] USASquamous Epithelial Cell,Urine1 [HPF]Normal0-2The [facility] Physician GroupComment on above:Order Comment: Name Collection Type:: Clean-Voided MidstreamPerformed By: #### ADDONUAPLUS, CUU, UHCG #### [facility] [address] [place] [address] USAUrobilinogen,Urine6 mg/dLHighNormalThBonner General Hospital Physician GroupComment on above:Order Comment: Name Collection Type:: Clean-Voided MidstreamPerformed By: #### ADDONUAPLUS, CUU, UHCG #### [place] [address] USAWBC,Urine50 [HPF]High0-4The [facility] Comment on above:Order Comment: Name Collection Type:: Clean-Voided Midstream Performed By: #### ADDONUAPLUS, CUU, UHCG #### [place] [address] USADrug Screen,Urineon 06-98-2798Ttikjvczrbc Screen,Urine NegativeNormalNegativeThe [facility] Physician GroupComment on above:Performed By: #### PAP [id number], GCCHLAMTRI #### [facility] , #### OBUDS #### [facility] [address] [place] [address] USABarbiturate Screen,UrineNegativeNormalNegativeThe [facility] Physician GroupComment on above:Performed By: #### PAP [id number], GCCHLAMTRI #### [facility] , #### OBUDS #### [facility] [address] [place], [place] [id number] USABenzodiazepines Screen,UrineNegativeNormalNegativeThe [facility] Physician GroupComment on above:Performed By: #### PAP [id number], GCCHLAMTRI #### [facility] , #### OBUDS #### [facility] [address] [place] [address] USACannabinoid Screen,UrinePositiveHighNegativeThe [facility] Physician GroupComment on above:Result Comment: These are unconfirmed results and should not be used for legal purposes. Drug Cut-Off Concentration: AMPH 1000 ng/mL NIKOLAS 200 ng/mL SHRAVAN 200 ng/mL COCM 300 ng/mL OP 300 ng/mL PCP 25 ng/mL THC 20 ng/mL PERFORMED BY: [place] [address] PATHOLOGIST SOFTWARE PROJECT LEAD IDANIA GODOY M.D.Performed By: #### PAP [id number], GCCHLAMTRI #### [facility] , #### OBUDS #### [place] [address] USACocaine Screen,UrineNegativeNormalNegativeThe [facility] Physician GroupComment on above:Performed By: #### PAP [id number], GCCHLAMTRI #### [facility] , #### OBUDS #### [place] [address] USAOpiate Screen,UrineNegativeNormalNegativeThe [facility] Physician GroupComment on above:Performed By: #### PAP [id number], GCCHLAMTRI #### [facility] , #### OBUDS #### [place] [address] USAPhencyclidine Screen,UrineNegativeNormalNegativeThe [facility] Physician GroupComment on above:Performed By: #### PAP [id number], GCCHLAMTRI #### [facility] , #### OBUDS #### [place] [address] USAECG 12 lead ECGon 57-90-7221LGN 12 lead ECGFULTON [facility] Main [place] [address] [place] [address] Electrocardiograph Report Signed Patient: Pili Parikh MR#: [id number] : 2005 Acct:[id number] Age/Sex: 19 / F ADM Date: 10/28/24 Loc: ER Room: Type: [facility] ER Attending Dr: Ordering Provider: Rd [...] sinus rhythm Confirmed by Robert BOLANOS DO ([id number]) on 10/28/2024 9:48:18 PM Referred By: Electronically Signed By: Robert BOLANOS DO Transcribed By: MUS Signed By Robert Bolanos DO 1 12/29/23 2148[facility] Physician GroupEosinophils Auto (Bld) [#/Vol] Ordered By: Rd Brown on 34-91-0010Bfjbubwxlse (Bld) [#/Vol]Automated eosinophil count0.0-0.45M[facility]itrick HospitalEosinophils/100 WBC Auto (Bld)Ordered By: Rd Brown on 30-05-1936Clabhbutlpt/100 WBC (Bld) Automated eosinophil %.[facility]itrick HospitalEpithelial cells.squamous [#/area] in Urine sediment by Automated countOrdered By: Rd Brown on 99-17-0919Ehhpehlsyr cells.squamous Auto (Urine sed) [#/Area]Epithelial cells.squamous [#/area] in Urine sediment by Automated count0-2FThe Bellevue HospitalErythrocyte distribution width Auto (RBC) [Ratio]Ordered By: Rd Brown on 50-70-4374Bdegpeikdib distribution width (RBC) [Ratio] Erythrocyte distribution width [Ratio] by Automated count11.9-15.3FThe Bellevue HospitalErythrocytes [#/area] in Urine sediment by Automated countOrdered By: Rd Brown on 84-58-6937TWY Auto (Urine sed) [#/Area] Erythrocytes [#/area] in Urine sediment by Automated countHigh04FThe Bellevue HospitalGlobulin Calc (S) [Mass/Vol]Ordered By: Rd Brown on 83-72-0613Bmgpdgjk (S) [Mass/Vol]Serum globulin measurement by calculation (mass/volume)[facility] HospitalGlucose [Mass/volume] in Serum or PlasmaOrdered By: Rd Brown on 85-90-6804Xvjrayr [Mass/Vol]Glucose [Mass/volume] in Serum or Wcmaig29-242XpvpevfshMckitrick HospitalComment on above:ADA recommended reference rangeRandom Glucose Reference Range is dependent on time and content of last meal. Glucose of more than 200 mg/dL in a nonstressed, ambulatory subject supports the diagnosisof Diabetes Mellitus. Glucose [Mass/volume] in Urine by Test stripOrdered By: Rd Brown on 40-32-8695Euovrhl Test strip (U) [Mass/Vol]Glucose [Mass/volume] in Urine by Test stripNormalMckitrick HospitalHC ( test) IA.rapid Ql (U)Ordered By: Rd Brown on 70-40-6126CBS ( test) Ql (U)Urine human chorionic gonadotropin (hCG) detection by immunoassayMckitrick HospitalHC,Urineon 20-77-3360Wuay HCG ( test) Ql (U)Negative NormalThe [facility] Physician GroupComment on above:Order Comment: Name Collection Type:: Clean-Voided MidstreamResult Comment: PERFORMED BY: [facility] [address] [place] [address] PATHOLOGIST SOFTWARE PROJECT LEAD IDANIA GODOY M.D.Performed By: #### ALIREZA RED [facility] #### [facility] [address] [place] [address] USAHematocrit Auto (Bld) [Volume fraction]Ordered By: Rd Brown on 02-08-1997Klkqtspuaj (Bld) [Volume fraction]Hematocrit [Volume Fraction] of Blood by Automated qnsqeOmmr49.0-46.4FThe Bellevue HospitalHemoglobin Test strip Ql (U)Ordered By: Rd Brown on 10-28-2024 Hemoglobin Ql (U)Hemoglobin [Presence] in Urine by Test stripHighNegative [facility] HospitalHemoglobin [Mass/volume] in BloodOrdered By: Rd Brown on 47-82-4768Egkrjyaozg (Bld) [Mass/Vol]Hemoglobin [Mass/volume] in ObpjsRvyd53.8-15.4FThe Bellevue HospitalHepatic Panelon 10-28-2024 Albumin [Mass/Vol]5.4 g/dLNormal3.5-5.7The [facility] Physician GroupComment on above:Performed By: #### PAP [id number], GCCHLAMTRI #### [facility] , #### OBUDS #### [facility] [address] [place] [address] USAAlbumin/Globulin [Mass ratio]1.5 {ratio}NormalThe [facility] Physician GroupComment on above:Performed By: #### PAP [id number], GCCHLAMTRI #### [facility] , #### OBUDS #### [place] [address] USAALP [Catalytic activity/Vol]78 U/SRwixvh79-282Agi [facility] Physician GroupComment on above:Performed By: #### PAP [id number], GCCHLAMTRI #### [facility] , #### OBUDS #### [facility] [address] [place] [address] USAALT [Catalytic activity/Vol]48 U/LNormal7-52The [facility] Physician GroupComment on above:Performed By: #### PAP [id number], GCCHLAMTRI #### [facility] , #### OBUDS #### [facility] [address] [place] [address] USAAST [Catalytic activity/Vol]30 U/CRmxtot49-41Elm [facility] Physician GroupComment on above:Performed By: #### PAP [id number], GCCHLAMTRI #### [facility] , #### OBUDS #### [facility] [address] [place] [address] USABilirubin [Mass/Vol]1.1 mg/dLHigh0.3-1.0The [facility] Physician GroupComment on above:Performed By: #### PAP [id number], GCCHLAMTRI #### [facility] , #### OBUDS #### [place] [address] USABilirubin,Indirect0.9 mg/dLNoFirstHealth Montgomery Memorial Hospital Physician GroupComment on above:Performed By: #### PAP [id number], GCCHLAMTRI #### [facility] , #### OBUDS #### [place] [address] USABilirubin.indirect [Mass/Vol]0.20 mg/dLHigh0.03-0.18The [facility] Physician GroupComment on above:Performed By: #### PAP [id number], GCCHLAMTRI #### [facility] , #### OBUDS #### [place] [address] USAGlobulin (S) [Mass/Vol]3.5 g/dLNormPremier Health Miami Valley Hospitale [facility] Physician GroupComment on above:Performed By: #### PAP [id number], GCCHLAMTRI #### [facility] , #### OBUDS #### [place] [address] USAProtein [Mass/Vol]8.9 g/dLNormal6.4-8.9The [facility] Physician GroupComment on above:Performed By: #### PAP [id number], GCCHLAMTRI #### [facility] , #### OBUDS #### [place] [address] USAHyaline casts [#/area] in Urine sediment by Automated countOrdered By: Rd Brown on 93-76-0543Dvcuntk casts Auto (Urine sed) [#/Area]Hyaline casts [#/area] in Urine sediment by Automated countHigh0-8 [facility] HospitalKetones Test strip Ql (U)Ordered By: Rd Brown on 61-61-3429Yuvwbbf Ql (U)Ketones [Presence] in Urine by Test stripMarymount Hospital CenterLeukocyte esterase [Presence] in Urine by Test stripOrdered By: Rd Brown on 18-77-5977Uaigowaks esterase Test strip Ql (U)Leukocyte esterase [Presence] in Urine by Test stripHighNegativeMckitrick HospitalLeukocytes [#/area] in Urine sediment by Automated count Ordered By: Rd Brown on 58-16-1386RSL Auto (Urine sed) [#/Area]Leukocytes [#/area] in Urine sediment by Automated countHigh0-4FThe Bellevue HospitalLeukocytes [#/volume] corrected for nucleated erythrocytes in Blood by Automated counOrdered By: Rd Brown on 10-53-8390ZXJ corrected for nucl RBC Auto (Bld) [#/Vol]Leukocytes [#/volume] corrected for nucleated erythrocytes in Blood by Automated counHigh3.8-11.6FThe Bellevue HospitalLipaseon 26-72-3027Lozgqt [Catalytic activity/Vol]19.0 U/FIqikuh29.0-82.0The [facility] Physician GroupComment on above:Result Comment: PERFORMED BY: [place] [address] PATHOLOGIST SOFTWARE PROJECT LEAD IDANIA GODOY M.D.Performed By: #### PAP [id number], GCCHLAMTRI #### [facility] , #### OBUDS #### [place] [address] USALipase [Enzymatic activity/volume] in Serum or Plasma Ordered By: Rd Brown on 41-24-8488Iuowwh [Catalytic activity/Vol]Lipase [Enzymatic activity/volume] in Serum or Nwgchw57.0-82.0[facility] HospitalLymphocytes Auto (Bld) [#/Vol]Ordered By: Rd Brown on 52-41-2087Gwfshixmyzh (Bld) [#/Vol]Lymphocytes [#/volume] in Blood by Automated count1.00-4.8Mckitrick HospitalLymphocytes/100 WBC Auto (Bld) Ordered By: Rd Brown on 61-97-8622Zisnewcblyh/100 WBC (Bld)Lymphocytes/100 leukocytes in Blood by Automated count.[facility] HospitalH Auto (RBC) [Entitic mass]Ordered By: Rd Brown on 17-75-0582CRO (RBC) [Entitic mass]MCH [Entitic mass] by Automated count24.7-34.3FOhioHealth Hardin Memorial HospitalHC Auto (RBC) [Mass/Vol]Ordered By: Rd Brown on 88-35-1196GTVG (RBC) [Mass/Vol]MCHC [Mass/volume] by Automated count32.0-35.0[facility]rick HospitalMCV Auto (RBC) [Entitic vol]Ordered By: Rd Brown on 10-28-2024 MCV (RBC) [Entitic vol]MCV [Entitic volume] by Automated qhqal21-837VjhwhpwftMckitrick HospitalMonocyte distribution width [Entitic volume] in Blood by AutomatedOrdered By: Rd Brown on 10-11-3551Iqpkdobk distribution width Auto (Bld) [Entitic vol]Monocyte distribution width [Entitic volume] in Blood by Automated0.00-20.00M[facility] HospitalMonocytes Auto (Bld) [#/Vol] Ordered By: Rd Brown on 75-06-7307Sbuwkkqum (Bld) [#/Vol]Automated blood monocyte countHigh0.0-0.8M[facility]rick HospitalMonocytes/100 WBC Auto (Bld)Ordered By: Rd Brown on 85-01-6974Hlntohtmg/100 WBC (Bld)Automated monocyte %.[facility]rick HospitalMucus [Presence] in Urine by AutomatedOrdered By: Rd Brown on 53-48-5308Vrfof Auto Ql (U)Mucus [Presence] in Urine by AutomatedAbnormalMckitrick HospitalNeutrophils Auto (Bld) [#/Vol]Ordered By: Rd Brown on 65-11-7309Igrtaitpmsq (Bld) [#/Vol] Neutrophils [#/volume] in Blood by Automated countHigh1.8-7.7FThe Bellevue HospitalNeutrophils/100 WBC Auto (Bld)Ordered By: Rd Brown on 71-07-4762Vxhgybtmdke/100 WBC (Bld)Automated neutrophil %.[facility] Medical CenterNitrite Test strip Ql (U)Ordered By: Rd Brown on 10-28-2024 Nitrite Ql (U)Nitrite [Presence] in Urine by Test stripNegativeMckitrick HospitalNo Panel InformationOrdered By: Rd Brown on 46-31-5668Rivbgzzrl GFR (CKD-EPI)> 60.0 mL/MinMckitrick Hospital Pharmacy Creatinine Clearance (Xqhw210.62[facility] Nucleated erythrocytes [Presence] in Blood by Automated countOrdered By: Rd Brown on 12-81-1438Vqgnatvfw RBC Auto Ql (Bld)Nucleated erythrocytes [Presence] in Blood by Automated count0-0.5FThe Bellevue HospitalOpiates [Presence] in Urine by Screen methodOrdered By: Rd Brown on 10-28-2024 Opiates Screen Ql (U)Opiates [Presence] in Urine by Screen methodNegative [facility] HospitalPhencyclidine Screen Ql (U)Ordered By: Rd Brown on 86-29-2597Aprxydpwywotf Ql (U)Phencyclidine [Presence] in Urine by Screen methodNegativeMckitrick HospitalPlatelet mean volume Auto (Bld) [Entitic vol]Ordered By: Rd Brown on 38-16-5222Krrdypyx mean volume (Bld) [Entitic vol]Platelet mean volume [Entitic volume] in Blood by Automated count6.3-10.7FThe Bellevue HospitalPlatelets Auto (Bld) [#/Vol] Ordered By: Rd Brown on 94-11-5522Vafdeazkq (Bld) [#/Vol]Platelets [#/volume] in Blood by Automated -445DkpiksvscMckitrick Hospital Potassiumon 68-61-1776Gezbxtxxm [Moles/Vol]2.9 mmol/LOff scale low3.5-5.1The [facility] Physician GroupComment on above:Result Comment: Critical Result Called to and read back by: RYLAN BELL at: 10/28/2024 23:09:11 by:MO PERFORMED BY: [address] [address] PATHOLOGIST SOFTWARE PROJECT LEAD IDANIA GODOY M.D.Performed By: #### K #### [address] [place] [address] USAPotassium [Moles/volume] in Serum or PlasmaOrdered By: Rd Brown on 85-83-1539Psoxiwmrs [Moles/Vol]Potassium [Moles/volume] in Serum or PlasmaCritically low3.5-5.1FThe Bellevue HospitalComment on above:Critical Result Called to and read back by: RYLAN BELL at: 10/28/2024 23:09:11 by:DHProtein Test strip (U) [Mass/Vol]Ordered By: Rd Brown on 21-71-3493Mbmtiav (U) [Mass/Vol]Protein [Mass/volume] in Urine by Test stripHigh NegativeMckitrick HospitalProtein [Mass/volume] in Serum or PlasmaOrdered By: Rd Brown on 16-41-8135Mjcvrfc [Mass/Vol]Protein [Mass/volume] in Serum or Plasma6.4-8.9M[facility]rick HospitalRBC Auto (Bld) [#/Vol]Ordered By: Rd Brown on 27-42-5355LUI (Bld) [#/Vol] Erythrocytes [#/volume] in Blood by Automated countHigh3.60-5.00Galion Hospitalerum or plasma albumin/globulin mass ratioOrdered By: Rd Brown 33-89-2546Szgxbkb/Globulin [Mass ratio]Serum or plasma albumin/globulin mass ratioGalion Hospitalerum or plasma anion gap determinationOrdered By: Rd Brown 82-21-8896Fbuzx gap [Moles/Vol]Serum or plasma anion gap determinationHigh6.0-15.0Galion Hospitalerum or plasma non-glucuronidated bilirubin measurement (mass/volume)Ordered By: Rd Brown on 40-16-4298Begkawckl.indirect [Mass/Vol] Serum or plasma non-glucuronidated bilirubin measurement (mass/volume)Galion Hospitalodium [Moles/volume] in Serum or PlasmaOrdered By: Rd Brown on 01-31-3065Fvtbez [Moles/Vol]Sodium [Moles/volume] in Serum or Filsmw803-850HiasistuuGalion Hospitalpecific gravity Test strip (U) [Rel density]Ordered By: Rd Brown on 51-27-9729Pvjdnodf gravity (U) [Rel density]Specific gravity of Urine by Test strip1.001-1.030Mckitrick HospitalUrea nitrogen [Mass/volume] in Serum or PlasmaOrdered By: Rd Brown on 36-66-9646Epym nitrogen [Mass/Vol]Urea nitrogen [Mass/volume] in Serum or Plasma7-25M[facility]rick HospitalUrine Cultureon 71-53-2313Rcnmxfdr identified Cx Nom (U)75,000 colonies/ml mixed bacterial skin contaminants 2 Days PERFORMED BY: [place] [address] PATHOLOGIST SOFTWARE PROJECT LEAD IDANIA GODOY M.D.NormalHca Florida Central Tampa Emergency Physician GroupComment on above: Performed By: #### ALIREZA RED TrniidadG #### [place] [address] USAUrine cultureOrdered By: Rd Brown on 10-28-2024 Bacteria identified Cx Nom (U)Urine cultureMckitrick Hospital Urobilinogen Test strip (U) [Mass/Vol]Ordered By: Rd Brown on 10-28-2024 Urobilinogen (U) [Mass/Vol]Urobilinogen [Mass/volume] in Urine by Test stripHigh NormalMckitrick HospitalWBC Auto (Bld) [#/Vol]Ordered By: Rd Brown on 13-94-7716HHM (Bld) [#/Vol]Leukocytes [#/volume] in Blood by Automated countHigh3.8-11.6FThe Bellevue HospitalpH Test strip (U)Ordered By: Rd Brown on 95-36-6059xA (U)pH of Urine by Test strip5.0-9.0Mck[facility]rick HospitalActivated partial thromboplastin time (aPTT) in platelet poor plasma by coagulation aOrdered By: Ania Watson on 51-55-6842oOSW Coag (PPP) [Time]24.7 sLow25.1-36.5FThe Bellevue HospitalComment on above: A hematocrit value greater than 55% may lead to inaccurate results in coagulation testing. Patientshaving hematocrit values >55% require a special collection tube for coagulation studies. Please contact the laboratory at [phone] for redraw instructions.Calcium [Mass/volume] in Serum or Plasma Ordered By: Ania Watson on 11-59-4301Gaaiusl [Mass/Vol]9.6 mg/dL8.6-10.3 [facility]ckitrick HospitalCarbon dioxide, total [Moles/volume] in Serum or PlasmaOrdered By: Ania Watson on 69-90-6802IR7 [Moles/Vol]18.5 mmol/LLow 21.0-31.0Mckitrick HospitalChloride [Moles/volume] in Serum or PlasmaOrdered By: Ania Watson on 84-04-1293Gfpaqzlj [Moles/Vol]99 mmol/L 98-107M[facility]rick HospitalCreatine kinase [Enzymatic activity/volume] in Serum or PlasmaOrdered By: Ania Watson on 22-97-6026CL [Catalytic activity/Vol]33 U/Q36-645TijbahcmiMckitrick HospitalCreatinine [Mass/volume] in Serum or PlasmaOrdered By: Ania Watson on 08-03-2024 Creatinine [Mass/Vol]0.61 mg/dL0.60-1.20[facility] HospitalGlucose [Mass/volume] in Serum or PlasmaOrdered By: Ania Watson on 61-78-3563Avcrgln [Mass/Vol]91 mg/dS00-796ClyowepfzMckitrick HospitalComment on above:ADA recommended reference rangeRandom Glucose Reference Range is dependent on time and content of last meal. Glucose of more than 200 mg/dL in a nonstressed, ambulatory subject supports the diagnosisof Diabetes Mellitus.INR in Platelet poor plasma by Coagulation assayOrdered By: Ania Watson on 60-73-4210YOP Coag (PPP) [Relative time]1.2 {INR}[facility]ckitrick HospitalComment on above:INR Therapeutic Range A) Pre- and [...] peptide B [Mass/Vol]Ordered By: Ania Watson on 81-40-9507Cgwfsownrkf peptide B (Bld) [Mass/Vol]19.0 pg/mL5-100M[facility]itrick HospitalNo Panel InformationOrdered By: Ania Watson on 62-65-4278Ckozbdnrt GFR (CKD-EPI)> 60.0 mL/MinMckitrick Hospital Pharmacy Creatinine Clearance (Tzin613.09[facility] Potassium [Moles/volume] in Serum or PlasmaOrdered By: Ania Watson on 12-94-6430Alivnuxca [Moles/Vol]3.5 mmol/L3.5-5.1FThe Bellevue HospitalComment on above:Hemolysis is present at a level that could interfere with the result.Contact lab if redraw is requiredProthrombin time (PT)Ordered By: Ania Watson on 73-82-4867KZ Coag (PPP) [Time]13.3 sHigh9.0-12.9M[facility]rick HospitalComment on above:A hematocrit value greater than 55% may lead to inaccurate results in coagulation testing. Patientshaving hematocrit values >55% require a special collection tube for coagulation studies. Please c ontact the laboratory at [phone] for redraw instructions.Serum or plasma anion gap determinationOrdered By: Ania Watson on 86-13-5911Ewpyk gap [Moles/Vol]20.0 mmol/LHigh6.0-15.0Galion Hospitalodium [Moles/volume] in Serum or PlasmaOrdered By: Ania Watson on 47-36-7325Pozfie [Moles/Vol]134 mmol/CExi074-218UdywrtjbjMckitrick HospitalTroponin I.cardiac [Mass/volume] in Serum or Plasma by Detection limit <= 0.01 ng/Ordered By: Ania Watson on 15-60-1005Xywoenkt I.cardiac DL <= 0.01 ng/mL [Mass/Vol] 7.0 pg/mL0.0-15.0M[facility] HospitalUrea nitrogen [Mass/volume] in Serum or PlasmaOrdered By: Ania Watson on 47-81-2099Siqb nitrogen [Mass/Vol] 20 mg/dL7-25Mckitrick HospitalB hCG Qualon 03-76-1826Djqs HCG ( test) QlNegativeNormalUc Medical CenterComment on above: Performed By: #### [id number] #### [facility] [address] [place], [place] [address]LUEjo 68-07-8391Dclhj gap [Moles/Vol]14 mmol/LNormal6-16Uc Medical CenterComment on above:Performed By: #### [id number] #### [facility] [address] [place], [place] [address]Ndmpcmm [Mass/Vol]9.7 mg/dLNormal8.9-11.1FHighland District HospitalComment on above:Performed By: #### [id number] #### [facility] [address] [place], [place] [address]Hoycvtsk [Moles/Vol]102 mmol/WTqwbzh800-087JvubkzUc Medical CenterComment on above:Performed By: #### [id number] #### [facility] [address] [place], [place] [address]WN5 [Moles/Vol]24 mmol/IKxyzij47-88KxhazoUc Medical Center Comment on above:Performed By: #### [id number] #### [facility] [address] [place], [place] [address]Bgfmhxpyav [Mass/Vol]0.7 mg/dLNormal0.5-1.3FHighland District HospitalComment on above:Performed By: #### [id number] #### [facility] [address] [place], [place] [address]Rsbricm [Mass/Vol]96 mg/mQFnadiu26-635OyftodUc Medical CenterComment on above:Performed By: #### [id number] #### [facility] [address] [place], [place] [address]Jqfvlnnow [Moles/Vol]3.3 mmol/LLow3.5-5.3FHighland District HospitalComment on above:Performed By: #### [id number] #### [facility] [address] [place], [place] [address]Pipynh [Moles/Vol]137 mmol/ETrrwyx845-726UnysziUc Medical CenterComment on above:Performed By: #### [id number] #### [facility] [address] [place], [place] [address]Lixn nitrogen [Mass/Vol]18 mg/dLNormal5-21Uc Medical CenterComment on above:Performed By: #### [id number] #### [facility] [address] [place], [place] [address]Zpkg nitrogen/Creatinine [Mass ratio]26 No RdqiiSorp96-66RgfezlUc Medical CenterComment on above:Performed By: #### [id number] #### [facility] [address] [place], [place] [address]QZW w/ Auto Diffon 43-13-6437Eswjbihgw/100 WBC (Bld)0.3 %Normal 0.0-2.0Uc Medical CenterComment on above:Performed By: #### [id number] #### [facility] [address] [place], [place] [address]Lzrzbjcyi/Leukocytes Auto (Bld) [Pure # fraction]0.1 E9/LNormal 0.0-0.2FHighland District HospitalComment on above:Performed By: #### [id number] #### [facility] [address] [place] [address]Fdteegmdexm (Bld) [#/Vol]0.1 E9/LNormal0.0-0.5FHighland District HospitalComment on above:Performed By: #### [id number] #### [facility] [address] [place], [place] [address]Odegctnvnzw/100 WBC (Bld)0.4 %Normal0.0-8.0Uc Medical CenterComment on above:Performed By: #### [id number] #### [facility] [address] [place], [place] [address]Mkeopjenooz distribution width (RBC) [Ratio]13.3 %Normal 10.9-14.2FHighland District HospitalComment on above:Performed By: #### [id number] #### [facility] [address] [place] [address]Cusxpnvzom (Bld) [Volume fraction]43.9 %Cmkcea35.0-46.0Uc Medical CenterComment on above:Performed By: #### [id number] #### [facility] [address] [place] [address] 99129Eqxpfokwoe (Bld) [Mass/Vol]14.5 g/hMQkdjac54.0-16.0[facility]c Medical CenterComment on above:Performed By: #### [id number] #### [facility] [address] [place] [address] 92767Dqhasjswjdq (Bld) [#/Vol]2.3 E9/LNormal1.0-4.0[facility]c Medical CenterComment on above:Performed By: #### [id number] #### [facility] [address] [place] [address] 24887Zbqcktegvwu/100 WBC (Bld)13.7 %Low14.0-50.0[facility]c Medical CenterComment on above:Performed By: #### [id number] #### [facility] [address] [place] [address] 16150IDM (RBC) [Entitic mass]28.3 llBwhlqu52.0-34.0[facility]c Medical CenterComment on above:Performed By: #### [id number] #### [facility] [address] [place] [address] 03012CTFY (RBC) [Mass/Vol]33.0 g/mXGkfqcq67.4-36.0[facility]c Medical CenterComment on above:Performed By: #### [id number] #### [facility] [address] [place] [address] 61541RWB (RBC) [Entitic vol]85.8 cFUbcpto56.0-100.0[facility] Medical CenterComment on above:Performed By: #### [id number] #### [facility] [address] [place] [address] 32630Zikxiycnc (Bld) [#/Vol]1.2 E9/LHigh0.2-1.0[facility] Medical CenterComment on above:Performed By: #### [id number] #### [facility] [address] [place] [address] 81739Ctrfvmxdbqd (Bld) [#/Vol]13.1 E9/LHigh2.0-7.5FHighland District HospitalComment on above:Performed By: #### [id number] #### [facility] [address] [place] [address] 89733Bqolvwktwwd/100 WBC (Bld)78.5 %High36.0-75.0[facility]c Medical CenterComment on above:Performed By: #### [id number] #### [facility] [address] [place] [address] 43811Eesfzdnr mean volume (Bld) [Entitic vol]8.2 fLNormal6.4-10.8 [facility] Medical CenterComment on above:Performed By: #### [id number] #### [facility] [address] [place] [address] 98604Ouxchuwni (Bld) [#/Vol]246.0 E9/MFzqnhz701.0-500.0[facility] Medical CenterComment on above:Performed By: #### [id number] #### [facility] [address] [place] [address] 46132XWM (Bld) [#/Vol]5.1 E12/LNormal4.3-5.9[facility]c Medical CenterComment on above:Performed By: #### [id number] #### [facility] [address] [place] [address] 67294IGR corrected for nucl RBC Auto (Bld) [#/Vol]16.7 E9/LHigh 4.0-11.0Uc Medical CenterComment on above:Result Comment: Peripheral smear review performed.Performed By: #### [id number] #### [facility] [address] [place], [place] [address]UJ Clinical Summaryon [id number] Clinical SummaryED Clinical Summary [address] [address] ED Clinical Summary Person Information Name: PILI PARIKH/[place] Age: 19 Years : 2005 Sex: Female Language: Qatari PCP: MODESTA CHAND CNP Marital Status: Single [...] 08/01/2024 12:09:48 08/01/2024 12:09:48 ADDRESS: [address] [facility] [id number] PHYS DOC NOTES: MEDICAL INFORMATION: Prescriptions Given: New Medications [id number], [address], [place] [id number], [phone] potassium chloride (potassium chloride 20 mEq ER [...] Follow up: With: Address: When: MODESTA CHAND [address] [place] [phone] [employer] (1) In 3 days 08/04/2024 Comments: Make sure to fill the prescriptions that was prescribed from [place]. Fill the new prescription for potassium. Follow-up with your primary doctor as discussed. Return to the emergency room if your vomiting recurs, abdominal pain recurs or any new symptoms. DIAGNOSIS: 1:Vomiting and diarrhea; 2:Hypokalemia; 3:Leukocytosis; Diarrhea, unspecified [facility] CenterED Note-Physicianon [id number] Note-Physician ED Note-Physician Basic Information Time Seen: August Bermudez M.D. 08/01/2024 09:27 Chief Complaint just left [place] [facility], seen multiple times for n/v lightheaded. hx cyclic vomiting, state its not that. has medication at [facility] but wanted to come here instead [...] any sick contact. The patient was at [facility] and they did send medication to [facility] however she feels she is dehydrated. [...] of Problems Differential Diagnosis: [] [facility] Data External documents reviewed: [] My [...] day(s), # 4 tab(s), Refills(s) 0, Pharmacy: [facility]/pharmacy #[id number], 157, cm, 08/01/24 9:34:00 EDT, [...] improved Discharge Disposition Dis (more content not included)...[facility] HospitalComment on above:Result Comment: Electronically Signed By: August Bermudez M.D.\.br\Date and Time Signed: 08/01/2411:58 EDTED Patient Summaryon [id number] Patient SummaryED Patient Summary [address] [address] Patient Discharge Instructions Person Information Name: PILI PARIKH Age: 19 Years Arrival Date: 08/01/2024 09:23:00 Discharge Diagnosis: 1:Vomiting and diarrhea; 2:Hypokalemia; 3:Leukocytosis; Diarrhea, unspecified Primary Care Physician: MODESTA CHAND CNP Provider Information Primary Provider: August Bermudez M.D. [facility] Caretaker:None The exam and treatment you received in the Emergency Department were for an urgent problem and are not intended as complete care. It is important that you follow up with a doctor, nurse practitioner,or physician?s legal executive assistant for ongoing care. If your symptoms become worse or you do not improve as expected and you are unable to reach your usual health care provider, you should return to the Emergency Department. We are available 24 hours a day. PILI PARIKH has been given the following list of patient education materials, prescriptions andfollow-up instructions: Follow-up Instructions: With: Address: When: MODESTA CHAND [address] [place] [address] [phone] Business (1) In 3 days 08/04/2024 Comments: Make sure to fill the prescriptions that was prescribed from [place]. Fill the new prescription for potassium. Follow-up [...] opioids can be used to help relieve ptctsibc-lz-kmwmfr pain and are often prescribed following a [...] your community drug take- back program or [employer] mail-back program, or flush them down the to (more content not included)...NormalUc Medical CenterHep Func Panelon 33-10-3455Rlnqtlc [Mass/Vol]5.1 g/dLHigh3.3-5.0[facility] Comment on above:Performed By: #### [id number] #### [facility] [address] [place], [place] [address]Gxsstmn/Globulin (S) [Mass conc ratio]1.8Fcrrwd5.1-2.2FHighland District HospitalComment on above:Performed By: #### [id number] #### [facility] [address] [place], [place] [address]DUK [Catalytic activity/Vol]75 Int._Unit/CAlzmvb71-70RuhoqwUc Medical CenterComment on above:Performed By: #### [id number] #### [facility] [address] [place], [place] [address]XOD No additional P-5'-P [Catalytic activity/Vol]45 Int._Unit/L Normal6-46Uc Medical CenterComment on above:Performed By: #### [id number] #### [facility] [address] [place], [place] [address]VZC [Catalytic activity/Vol]25 Int._Unit/LNormal5-43Uc Medical CenterComment on above:Performed By: #### [id number] #### [facility] [address] [place], [place] [address]Taasheefn [Mass/Vol]0.9 mg/dLNormal0.0-1.1FHighland District HospitalComment on above:Performed By: #### [id number] #### [facility] [address] [place], [place] [address]Fzoscwvlm.direct [Mass/Vol]0.1 mg/dLNormal0.0-0.4FHighland District HospitalComment on above:Performed By: #### [id number] #### [facility] [address] [place] [address]Rzbzqwnve.indirect [Mass or moles/Vol]0.8 mg/dLNormal0.1-0.9 [facility] Medical CenterComment on above:Performed By: #### [id number] #### [facility] [address] [place] [address] 45[address]Trsdnxgp (S) [Mass/Vol]3.0 g/dLNormal1.4-4.0[facility]c Medical CenterComment on above:Performed By: #### [id number] #### [facility] [address] [place] [address] 615[address]Jetrhck [Mass/Vol]8.1 g/dLHigh6.0-7.8Uc Medical CenterComment on above:Performed By: #### [id number] #### [facility] [address] [place], [place] [address]Yrcawk Levelon 74-44-9339Nfnmof [Catalytic activity/Vol]27 U/L Ekyzoy65-33BmknsvUc Medical CenterComment on above:Performed By: #### [id number] #### [facility] [address] [place], [place] [address]Hehjrzfufkw 34-03-8479Obpzcwtzp [Mass/Vol]2.2 mg/dLNormal 1.3-2.4FHighland District HospitalComment on above:Performed By: #### [id number] #### [facility] [address] [place], [place] [address]AZ & PTTon 73-63-0185xKKG Coag (PPP) [Time]31.2 second(s)Normal 25.1-36.5Freilly R Adams Cow[facility] Shock Trauma CenterComment on above:Result Comment: Parameter 15 days [...] same coagulation reagent and instrumentation as [facility]. Currently there are no coagulation studies available worldwide for children to 14 days, andno normal ranges. Heparin therapeutic range (represented by Anti-Factor Xa activity of 0.2 - 0.4 U/mL) corresponds to PTT of 56.6 - 109.0 sec.Performed By: #### [id number] #### [facility] [address] [place], [place] [address]EEJ Coag (PPP) [Relative time]1.11 {INR}Invalid Interpretation CodeGinoThe Sheppard & Enoch Pratt HospitalComment on above:Result Comment: INR results are specifically intended to assess patients stabilized on long-term Anticoagulation therapy suggested INR?s ?Less Intensive Anticoagulation? 2.0 ? 3.0 Conventional Range 3.0 ? 4.5Performed By: #### [id number] #### [facility] [address] [place], [place] [address]AL Coag (PPP) [Time]12.5 second(s)Normal9.4-12.5Fre[facility] Cow[facility] Shock Trauma CenterComment on above:Result Comment: 15 days - [...] same coagulation reagent and instrumentation as [facility]. Currently there are no coagulation studies available worldwide for children to 14 days, andno normal ranges.Performed By: #### [id number] #### [facility] [address] [place], [place] [address]Ijvnzbij 0 Hr.on 78-41-1469Uonthkxi HS5.20 pg/mLLow10.10-27.10 [facility]c Medical CenterComment on above:Result Comment: The 95% CI (Confidence Interval) PPV (Positive Predictive Value) for myocardial infarction in females is 38 pg/mL, in males 51 pg/mL. The results should be used in conjunction with clinical conditions of myocardial infarction. (Access High Sensitivity Troponin I Instructions For Use, Sugar Sundar, June 2018)Performed By: #### [id number] #### [facility] [address] [place], [place] [address]nVCNcn 32-21-2831iOTV236 mL/min/1.73 s3Lukfiv>=59Uc Medical CenterComment on above:Order Comment: Order added by Discern Expert. Performed By: #### [id number] #### [facility] [address] [place], [place] [address]CUGjg 92-96-0457Oikkp gap [Moles/Vol]13 mmol/LNormal6-16Uc Medical CenterComment on above:Performed By: #### [id number] #### [facility] [address] [place], [place] [address]Utmyqmn [Mass/Vol]9.4 mg/dLNormal8.9-11.1FHighland District HospitalComment on above:Performed By: #### [id number] #### [facility] [address] [place], [place] [address]Pkmyoiqt [Moles/Vol]107 mmol/CPsgsov944-445OslrdfUc Medical CenterComment on above:Performed By: #### [id number] #### [facility] [address] [place], [place] [address]CO5 [Moles/Vol]25 mmol/SPhmmdv47-60WkdfpaUc Medical Center Comment on above:Performed By: #### [id number] #### [facility] [address] [place], [place] [address]Ftzttbiygz [Mass/Vol]0.8 mg/dLNormal0.5-1.3FHighland District HospitalComment on above:Performed By: #### [id number] #### [facility] [address] [place], [place] [address]Nodooaf [Mass/Vol]89 mg/eRNrdlnq90-569ZjdgcnUc Medical CenterComment on above:Performed By: #### [id number] #### [facility] [address] [place], [place] [address]Bellhharm [Moles/Vol]3.6 mmol/LNormal3.5-5.3FHighland District HospitalComment on above:Performed By: #### [id number] #### [facility] [address] [place], [place] [address]Nmoyhh [Moles/Vol]141 mmol/OAduqqz549-177LsfjbwUc Medical CenterComment on above:Performed By: #### [id number] #### [facility] [address] [place], [place] [address]Fmnk nitrogen [Mass/Vol]19 mg/dLNormal5-21Uc Medical CenterComment on above:Performed By: #### [id number] #### [facility] [address] [place], [place] [address]Cgxf nitrogen/Creatinine [Mass ratio]24 No VaxofTmtv80-10BqlptcUc Medical CenterComment on above:Performed By: #### [id number] #### [facility] [address] [place], [place] [address]LLG w/ Auto Diffon 62-10-0445Zubjedxso/100 WBC (Bld)0.4 %Normal 0.0-2.0[facility]c Medical CenterComment on above:Performed By: #### [id number] #### [facility] [address] [place] [address]Qwqunpigg/Leukocytes Auto (Bld) [Pure # fraction]0.1 E9/LNormal 0.0-0.2FHighland District HospitalComment on above:Performed By: #### [id number] #### [facility] [address] [place] [address]Cxwymvinrlx (Bld) [#/Vol]0.1 E9/LNormal0.0-0.5FHighland District HospitalComment on above:Performed By: #### [id number] #### [facility] [address] [place] [address] 394[address]Vhxruuocdme/100 WBC (Bld)0.5 %Normal0.0-8.0[facility]c Medical CenterComment on above:Performed By: #### [id number] #### [facility] [address] [place] [address]Nlwgpzveadf distribution width (RBC) [Ratio]13.2 %Normal 10.9-14.2FHighland District HospitalComment on above:Performed By: #### [id number] #### [facility] [address] [place] [address] 215[address]Yhgnclztid (Bld) [Volume fraction]39.6 %Caovjh79.0-46.0[facility]c Medical CenterComment on above:Performed By: #### [id number] #### [facility] [address] [place] [address]65[address]Pxaxwiezur (Bld) [Mass/Vol]13.7 g/sXZoxcxe50.0-16.0[facility]c Medical CenterComment on above:Performed By: #### [id number] #### [facility] [address] [place] [address]Firrfyjfiwa (Bld) [#/Vol]2.3 E9/LNormal1.0-4.0[facility]c Medical CenterComment on above:Performed By: #### [id number] #### [facility] [address] [place] [address] 125[address]Tzhprmczsnz/100 WBC (Bld)14.1 %Fdzwhr79.0-50.0[facility]c Medical CenterComment on above:Performed By: #### [id number] #### [facility] [address] [place] [address]CNJ (RBC) [Entitic mass]29.4 hkOuclxf10.0-34.0[facility]c Medical CenterComment on above:Performed By: #### [id number] #### [facility] [address] [place] [address] 344[address]ENTD (RBC) [Mass/Vol]34.5 g/qFFpumem38.4-36.0[facility]c Medical CenterComment on above:Performed By: #### [id number] #### [facility] [address] [place] [address]LXV (RBC) [Entitic vol]85.3 sZQrotia45.0-100.0[facility]c Medical CenterComment on above:Performed By: #### [id number] #### [facility] [address] [place] [address] 317[address]Bzwphkxxg (Bld) [#/Vol]1.2 E9/LHigh0.2-1.0[facility]c Medical CenterComment on above:Performed By: #### [id number] #### [facility] [address] [place] [address]Kpqgjnwiyqq (Bld) [#/Vol]12.6 E9/LHigh2.0-7.5FHighland District HospitalComment on above:Performed By: #### [id number] #### [facility] [address] [place] [address] 475[address]Uwdwnmclzal/100 WBC (Bld)77.5 %High36.0-75.0[facility]c Medical CenterComment on above:Performed By: #### [id number] #### [facility] [address] [place], [place] [address]Bsevzpum983.0 E9/XOjaczn713.0-500.0[facility] Comment on above:Performed By: #### [id number] #### [facility] [address] [place], [place] [address]Mmfeijfh mean volume (Bld) [Entitic vol]8.1 fLNormal6.4-10.8 [facility] Medical CenterComment on above:Performed By: #### [id number] #### [facility] [address] [place], [place] [address]MVQ (Bld) [#/Vol]4.7 E12/LNormal4.3-5.9[facility]c Medical CenterComment on above:Performed By: #### [id number] #### [facility] [address] [place], [place] [address]CMB corrected for nucl RBC Auto (Bld) [#/Vol]16.2 E9/LHigh 4.0-11.0[facility]c Medical CenterComment on above:Performed By: #### [id number] #### [facility] [address] [place] [address]OAFGHDNYQWocfrow By: Manish Sales on 60-69-7525Srrmrxp [Mass/Vol]4.7 g/dLNormal3.3 - 5.0 gm/dLRemisol ChemAlbumin/Globulin [Mass ratio] 1.7 {ratio}Normal1.1 - 2.2Remisol ChemALP [Catalytic activity/Vol]73 [iU]/d Vshquo91 - 98 Int._Unit/LRemisol ChemALT No additional P-5'-P [Catalytic activity/Vol]46 [iU]/dNormal6 - 46 Int._Unit/LRemisol ChemAnion gap [Moles/Vol] 13 mmol/LNormal6 - 16 mEq/LRemisol ChemAST [Catalytic activity/Vol]24 [iU]/d Normal5 - 43 Int._Unit/LRemisol ChemBilirubin [Mass/Vol]0.7 mg/dLNormal0.0 - 1.1 mg/dLRemisol ChemBilirubin.direct [Mass/Vol]0.1 mg/dLNormal0.0 - 0.4 mg/dL Remisol ChemBilirubin.indirect [Mass or moles/Vol]0.6 mg/dLNormal0.1 - 0.9 mg/dL Remisol ChemCalcium [Mass/Vol]9.4 mg/dLNormal8.9 - 11.1 mg/dLRemisol Chem Chloride [Moles/Vol]107 mmol/CTblzng083 - 111 mmol/LRemisol ChemCO2 [Moles/Vol] 25 mmol/PMwtdmj74 - 31 mmol/LRemisol ChemCreatinine [Mass/Vol]0.8 mg/dLNormal0.5 - 1.3 mg/dLRemisol WqtqeDNO252 mL/min/1.73 a3Zypslt>=59mL/min/1.73 n6Xffecjf ChemGlobulin (S) [Mass/Vol]2.8 g/dLNormal1.4 - 4.0 gm/dLRemisol ChemGlucose [Mass/Vol]89 mg/iQJtqwgc34 - 199 mg/dLRemisol ChemLipase [Catalytic activity/Vol]10 U/LLow13 - 58 unit/LRemisol ChemMagnesium [Mass/Vol]2.2 mg/dL Normal1.3 - 2.4 mg/dLRemisol ChemPotassium [Moles/Vol]3.6 mmol/LNormal3.5 - 5.3 mmol/LRemisol ChemProtein [Mass/Vol]7.5 g/dLNormal6.0 - 7.8 gm/dLRemisol Chem Sodium [Moles/Vol]141 mmol/XBmpjvz927 - 145 mmol/LRemisol ChemUrea nitrogen [Mass/Vol]19 mg/dLNormal5 - 21 mg/dLRemisol ChemUrea nitrogen/Creatinine [Mass ratio]24 mg/tlTwty57 - 20Remisol ChemED Clinical Summaryon [id number] Clinical SummaryED Clinical Summary [address] [address] ED Clinical Summary Person Information Name: PILI PARIKH/[place] Age: 19 Years : 2005 Sex: Female Language: Qatari PCP: MODESTA ARCHIBALD Marital Status: Single Visit [...] 07/30/2024 22:55:49 07/30/2024 22:55:49 07/30/2024 22:55:49 ADDRESS: [address] [place] [id number] PHYS DOC NOTES: MEDICAL INFORMATION: Prescriptions Given: New Medications [facility]/pharmacy #[id number], [address], [place] [id number], [phone] ondansetron (Zofran ODT 4 mg Tab-Dis) 1 Tablets By Mouth every 8 hours as needed Nausea/Vomiting. Refills: 0. Medications to Continue Taking That Have Changed [facility]/pharmacy #[id number], [address], [place] [id number], [phone] START: promethazine (Phenergan 12.5 mg Supp) 1 [...] Follow up: With: Address: When: FAMILIA ROSESON [facility] [address] [address] Business (1) In 3 days 08/02/2024 DIAGNOSIS: AP (abdominal pain); N&V (nausea and vomiting)[facility] ED Note-Physicianon [id number] Note-PhysicianED Note-Physician Basic Information Time Seen: Dustin [...] of Problems Differential Diagnosis: [] [facility] Data External documents reviewed: N/A My [...] PRN Nausea/Vomiting, # 16 tab(s), Refills(s) 0, [id number], cm, 07/30/24 19:37:00 EDT, Height/Length Dosing, 96.1, kg, 07/30/24 19:37:00 EDT, Weight Dosing promethazine, 12.5 mg = 1 tab(s), Oral, q8hr, PRN as needed for nausea/vomiting, second line, # 10 tab(s), Refills(s) 0, [id number], 157, cm, 07/30/24 19:37:00 EDT, Height/Length Dosing, 96.1, kg, 07/30/24 19:37:00 EDT, Weight Dosing promethazine, 12.5 mg = 1 supp, Rectal, q8hr, PRN as needed for nausea/vomiting, 3rd line, # 6 EA, Refills(s) 0, [id number] 157, cm, 07/30/24 19:37:00 [...] Level Saline Lock Insert Medications Administered Given rulf32QCP [F] 1000 mg + GenDil 100 mL, IV Piggyback famotidine 10 mg/mL IV Lisa, 20 mg, IV Push NS 1000 ml Bolus, 1000 mL, IV pfcdot20Uzmieyjju [F] 12.5 mg + Sodium Chloride 0.9% IV Lisa 50 mL [F] 50 mL, IV Piggyback Disposition Plan Discharge Prescription List Prescriptions Phenergan 12.5 mg Supp, 12.5 mg= 1 supp, Rectal, q8hr, PRN promethazine 12.5 mg oral tablet, 12.5 mg= 1 tab(s), Oral, q8hr, PRN Zofran ODT 4 mg Tab-Dis, 4 mg= 1 tab(s), Or (more content not included)...Normal [facility] Medical CenterComment on above:Result Comment: Electronically Signed By: Dustin Villalobos DO\.br\Date and Time Signed: 07/30/24 22:50 EDTED Patient Summaryon [id number] Patient SummaryED Patient Summary [address] [address] Patient Discharge Instructions Person Information Name: PILI PARIKH Age: 19 Years Arrival Date: 07/30/2024 19:26:13 Discharge Diagnosis: AP (abdominal pain); N&V (nausea and vomiting) Primary Care Physician: MODESTA ARCHIBALD Provider Information Primary Provider: Dustin Villalobos DO [facility] Caretaker:None The exam and treatment you received in the Emergency Department were for an urgent problem and are not intended as complete care. It is important that you follow up with a doctor, nurse practitioner,or physician?s legal executive assistant for ongoing care. If your symptoms become worse or you do not improve as expected and you are unable to reach your usual health care provider, you should return to the Emergency Department. We are available 24 hours a day. PILI PARIKH has been given the following list of patient education materials, prescriptions andfollow-up instructions: Follow-up Instructions: With: Address: When: FAMILIA CHAND [facility] [address] [phone] Business (1) In 3 days 08/02/2024 In the event that this physician does not participate in your insurance network, please consult with your insurance company to find a nearby participating provider. Patient Education Materials: Nausea and Vomiting, Adult A MESSAGE TO ALL PATIENTS REGARDING OPIOIDS PRESCRIPTION OPIOIDS: WHAT YOU NEED TO KNOW Prescription opioids can be used to help relieve pfxkwddj-mg-ysynlf pain and are often prescribed following a [...] your community drug take- back program or [employer] mail-back program, or flush them down the toilet, following guidance from the Food and Drug Administration (www.fda.gov/Drugs/ResourcesForYou). ? Visit www.cdc.gov/drugoverdose to learn about the risks of opioids abuse and overdose. ? If you believe you may be struggling with addiction, tell your health direct care worker and ask for guidance or call [facility] (more content not included)...[facility] HospitalHEMATOLOGYOrdered By: SYSTEM SYSTEM on 86-29-7778Lldwxpizi/100 WBC (Bld)0.4 %Normal0.0 - 2.0 %Remisol HemeBasophils/Leukocytes Auto (Bld) [Pure # fraction]0.1 E9/LNormal0.0 - 0.2 E9/LRemisol HemeEosinophils (Bld) [#/Vol]0.1 E9/LNormal0.0 - 0.5 E9/LRemisol HemeEosinophils/100 WBC (Bld)0.5 %Normal0.0 - 8.0 %Remisol HemeErythrocyte distribution width (RBC) [Ratio]13.2 %Avszie92.9 - 14.2 %Remisol HemeHematocrit (Bld) [Volume fraction]39.6 %Noaodr84.0 - 46.0 %Remisol HemeHemoglobin (Bld) [Mass/Vol]13.7 g/sAIvacqh48.0 - 16.0 gm/dLRemisol HemeLymphocytes (Bld) [#/Vol] 2.3 E9/LNormal1.0 - 4.0 E9/LRemisol HemeLymphocytes/100 WBC (Bld)14.1 %Normal 14.0 - 50.0 %Remisol HemeMCH (RBC) [Entitic mass]29.4 xnCijyrd89.0 - 34.0 pg Remisol HemeMCHC (RBC) [Mass/Vol]34.5 g/jWQvkatw71.4 - 36.0 gm/dLRemisol HemeMCV (RBC) [Entitic vol]85.3 aXVepocc40.0 - 100.0 fLRemisol HemeMonocytes (Bld) [#/Vol]1.2 E9/LHigh0.2 - 1.0 E9/LRemisol HemeMonocytes/100 WBC (Bld)7.5 %Normal 4.0 - 14.0 %Remisol HemeNeutrophils (Bld) [#/Vol]12.6 E9/LHigh2.0 - 7.5 E9/L Remisol HemeNeutrophils/100 WBC (Bld)77.5 %High36.0 - 75.0 %Remisol HemePlatelet 260.0 E9/IWhthvv054.0 - 500.0 E9/LRemisol HemePlatelet mean volume (Bld) [Entitic vol]8.1 fLNormal6.4 - 10.8 fLRemisol HemeRBC (Bld) [#/Vol]4.7 E12/L Normal4.3 - 5.9 E12/LRemisol HemeWBC corrected for nucl RBC Auto (Bld) [#/Vol] 16.2 E9/LHigh4.0 - 11.0 E9/LRemisol HemeHep Func Panelon 85-95-8974Zxzspwo [Mass/Vol]4.7 g/dLNormal3.3-5.0[facility] [facility] Trauma CenterComment on above: Performed By: #### [id number] #### [facility] [address] [place], [place] [address]Onmqkpd/Globulin (S) [Mass conc ratio]1.0Rmlvqe8.1-2.2Fisher [facility] Shock Trauma CenterComment on above:Performed By: #### [id number] #### [facility] [address] [place], [place] [address]XHV [Catalytic activity/Vol]73 Int._Unit/XMpzxjt24-83NqztvlUc Medical CenterComment on above:Performed By: #### [id number] #### [facility] [address] [place] [address]TCB No additional P-5'-P [Catalytic activity/Vol]46 Int._Unit/L Normal6-46Uc Medical CenterComment on above:Performed By: #### [id number] #### [facility] [address] [place] [address]JDO [Catalytic activity/Vol]24 Int._Unit/LNormal5-43Uc Medical CenterComment on above:Performed By: #### [id number] #### [facility] [address] [place] [address]Mdwatjyhh [Mass/Vol]0.7 mg/dLNormal0.0-1.1FHighland District HospitalComment on above:Performed By: #### [id number] #### [facility] [address] [place] [address]Pkvewppsl.direct [Mass/Vol]0.1 mg/dLNormal0.0-0.4FHighland District HospitalComment on above:Performed By: #### [id number] #### [facility] [address] [place] [address]Qklhclrci.indirect [Mass or moles/Vol]0.6 mg/dLNormal0.1-0.9 [facility] Medical CenterComment on above:Performed By: #### [id number] #### [facility] [address] [place] [address]Vbdyjwbc (S) [Mass/Vol]2.8 g/dLNormal1.4-4.0Uc Medical CenterComment on above:Performed By: #### [id number] #### [facility] [address] [place] [address]Dnikliw [Mass/Vol]7.5 g/dLNormal6.0-7.8[facility]c Medical CenterComment on above:Performed By: #### [id number] #### [facility] [address] [place], [place] [address]Jqnmvc Levelon 25-63-9701Dqykdk [Catalytic activity/Vol]10 U/L Avi50-50JzqhhiUc Medical CenterComment on above:Performed By: #### [id number] #### [facility] [address] [place], [place] [address]Kgwkhfgvqia 71-55-9496Etuftwzrh [Mass/Vol]2.2 mg/dLNormal 1.3-2.4Fisher [facility] Trauma CenterComment on above:Performed By: #### [id number] #### [facility] [address] [place], [place] [address]fXVDpz 44-55-0126hGRI078 mL/min/1.73 x2Jgulqf>=59Uc Medical CenterComment on above:Order Comment: Order added by Discern Expert. Performed By: #### [id number] #### [facility] [address] [place], [place] [address]Vinmwdq aminotransferase [Enzymatic activity/volume] in Serum or PlasmaOrdered By: Femi Benitez on 01-68-4214LTD [Catalytic activity/Vol]25 U/L 7-52Mckitrick HospitalAlbumin [Mass/volume] in Serum or Plasma by Bromocresol green (BCG) dye binding methoOrdered By: Femi Benitez on 03-18-2024 Albumin BCG dye [Mass/Vol]5.3 g/dL3.5-5.7FThe [facility] Hospital Alkaline phosphatase [Enzymatic activity/volume] in Serum or PlasmaOrdered By: eFmi Benitez on 64-71-6554CSA [Catalytic activity/Vol]82 U/L83-052KlynfgllxMckitrick HospitalAspartate aminotransferase [Enzymatic activity/volume] in Serum or PlasmaOrdered By: Femi Benitez on 09-34-2911BNX [Catalytic activity/Vol] 23 U/S06-70MabspufgsMckitrick HospitalBasophils Auto (Bld) [#/Vol]Ordered By: Femi Benitez on 13-64-0517Peehlaxjo (Bld) [#/Vol]0.1 10*3/uL0.0-0.2FThe Bellevue HospitalBasophils/100 WBC Auto (Bld)Ordered By: Femi Benitez on 68-37-1837Lwcroagvz/100 WBC (Bld)0.4 %.[facility] Bilirubin.total [Mass/volume] in Serum or PlasmaOrdered By: Femi Benitez on 67-92-2641Ieauexgco [Mass/Vol]0.9 mg/dL0.3-1.0[facility] Calcium [Mass/volume] in Serum or PlasmaOrdered By: Femi Benitez on 03-18-2024 Calcium [Mass/Vol]10.4 mg/dL8.6-10.3FThe Bellevue HospitalCarbon dioxide, total [Moles/volume] in Serum or PlasmaOrdered By: Femi Benitez on 78-85-4932EX5 [Moles/Vol]18.4 mmol/L21.0-31.0[facility] Chloride [Moles/volume] in Serum or PlasmaOrdered By: Femi Benitez on 03-18-2024 Chloride [Moles/Vol]94 mmol/F89-491XllyrzryqMckitrick Hospital Choriogonadotropin.beta subunit [Units/volume] in Serum or PlasmaOrdered By: Femi Benitez on 14-29-4628XIA.beta subunit QnNegativeMckitrick HospitalCreatinine [Mass/volume] in Serum or PlasmaOrdered By: Femi Benitez on 62-88-2025Icteovbjhn [Mass/Vol]0.80 mg/dL0.60-1.20M[facility] HospitalEosinophils Auto (Bld) [#/Vol]Ordered By: Femi Benitez on 03-18-2024 Eosinophils (Bld) [#/Vol]0.4 10*3/uL0.0-0.45[facility] Eosinophils/100 WBC Auto (Bld)Ordered By: Femi Benitez on 03-18-2024 Eosinophils/100 WBC (Bld)2.3 %.[facility]itrick HospitalErythrocyte distribution width Auto (RBC) [Ratio]Ordered By: Femi Benitez on 03-18-2024 Erythrocyte distribution width (RBC) [Ratio]14.3 %11.9-15.3FThe Bellevue HospitalGlobulin Calc (S) [Mass/Vol]Ordered By: Femi Benitez on 03-18-2024 Globulin (S) [Mass/Vol]2.8 g/dLMckitrick HospitalGlucose [Mass/volume] in Serum or PlasmaOrdered By: Femi Benitez on 30-14-4681Ywixpiv [Mass/Vol]95 mg/dL82-520RqynwzdrmMckitrick HospitalComment on above:ADA recommended reference rangeRandom Glucose Reference Range is dependent on time and content of last meal. Glucose of more than 200 mg/dL in a nonstressed, ambulatory subject supports the diagnosisof Diabetes Mellitus.Hematocrit Auto (Bld) [Volume fraction]Ordered By: Femi Benitez on 04-53-2895Opdxioygmq (Bld) [Volume fraction]48.2 %34.0-46.4FThe Bellevue HospitalHemoglobin [Mass/volume] in BloodOrdered By: Femi Benitez on 23-62-9889Bvmtryckwg (Bld) [Mass/Vol]16.3 g/dL11.8-15.4FThe Bellevue HospitalLeukocytes [#/volume] corrected for nucleated erythrocytes in Blood by Automated coun Ordered By: Femi Benitez on 52-72-2129FXK corrected for nucl RBC Auto (Bld) [#/Vol]18.5 10*3/uL3.8-11.6FThe Bellevue HospitalLymphocytes Auto (Bld) [#/Vol]Ordered By: Femi Benitez on 70-93-1316Edrjxrsvtxq (Bld) [#/Vol]3.9 10*3/uL1.00-4.8M[facility] HospitalLymphocytes/100 WBC Auto (Bld) Ordered By: Femi Benitez on 52-37-9048Igiagtaiukc/100 WBC (Bld)20.9 %.[facility]itrick HospitalMCH Auto (RBC) [Entitic mass]Ordered By: Femi Benitez on 75-82-8075OAN (RBC) [Entitic mass]28.2 pg24.7-34.3FThe Bellevue HospitalMCHC Auto (RBC) [Mass/Vol]Ordered By: Femi Benitez on 13-16-4219BOFC (RBC) [Mass/Vol]33.9 g/dL32.0-35.0[facility] Medical CenterMCV Auto (RBC) [Entitic vol]Ordered By: Femi Benitez on 31-74-6422YIP (RBC) [Entitic vol]83.2 fL 80-100M[facility] HospitalMonocyte distribution width [Entitic volume] in Blood by AutomatedOrdered By: Femi Benitez on 12-08-7670Owkwrncp distribution width Auto (Bld) [Entitic vol]16.34 %0.00-20.00M[facility] HospitalMonocytes Auto (Bld) [#/Vol]Ordered By: Femi Benitez on 03-18-2024 Monocytes (Bld) [#/Vol]1.4 10*3/uL0.0-0.8[facility] Monocytes/100 WBC Auto (Bld)Ordered By: Femi Benitez on 76-70-4691Lylvmngdq/100 WBC (Bld)7.6 %.[facility] HospitalNeutrophils Auto (Bld) [#/Vol] Ordered By: Femi Benitez on 79-33-8258Uctaivbxpgf (Bld) [#/Vol]12.7 10*3/uL1.8-7.7 [facility] HospitalNeutrophils/100 WBC Auto (Bld)Ordered By: Femi Benitez on 31-71-5064Flbmhelggmp/100 WBC (Bld)68.8 %.[facility] HospitalNo Panel InformationOrdered By: Femi Benitez on 76-18-3802Mpeedigtq GFR (CKD-EPI)> 60.0 mL/MinMckitrick HospitalPharmacy Creatinine Clearance (Ygqo817.98M[facility]itrick HospitalNucleated erythrocytes [Presence] in Blood by Automated countOrdered By: Femi Benitez on 03-18-2024 Nucleated RBC Auto Ql (Bld)0.1 /100{WBC}0-0.5FThe [facility] Hospital Platelet mean volume Auto (Bld) [Entitic vol]Ordered By: Femi Benitez on 44-86-2580Gdntlyeu mean volume (Bld) [Entitic vol]8.5 fL6.3-10.7FThe Bellevue HospitalPlatelets Auto (Bld) [#/Vol]Ordered By: Femi Benitez on 88-62-5615Dkdxxapxj (Bld) [#/Vol]358 10*3/jB264-135ZgdyplxtmMckitrick HospitalPotassium [Moles/volume] in Serum or PlasmaOrdered By: Femi Benitez on 93-15-0182Cquijweqm [Moles/Vol]See comment3.5-5.1FThe Bellevue HospitalComment on above:Specimen hemolyzed, redraw requestedResults calledat 2349 on 03/18/24Protein [Mass/volume] in Serum or PlasmaOrdered By: Femi Benitez on 62-04-8046Qnvqihn [Mass/Vol]8.1 g/dL6.4-8.9M[facility] HospitalRBC Auto (Bld) [#/Vol]Ordered By: Femi Benitez on 82-35-1382OPT (Bld) [#/Vol]5.79 10*6/uL3.60-5.00Galion Hospitalerum or plasma albumin/globulin mass ratioOrdered By: Femi Benitez on 41-79-8291Dwhvufd/Globulin [Mass ratio]1.9 {ratio}[facility] Hospitalerum or plasma anion gap determinationOrdered By: Femi Benitez on 41-49-7618Phygw gap [Moles/Vol]TNP [facility] HospitalComment on above:Test not performedSodium [Moles/volume] in Serum or PlasmaOrdered By: Femi Benitez on 73-55-8897Gtdmjc [Moles/Vol]134 mmol/I276-378RrybmnnhaMckitrick HospitalUrea nitrogen [Mass/volume] in Serum or PlasmaOrdered By: Femi Benitez on 20-48-4068Vxyz nitrogen [Mass/Vol]27 mg/dL7-25M[facility]rick HospitalWBC Auto (Bld) [#/Vol]Ordered By: Femi Benitez on 66-01-5166HOP (Bld) [#/Vol]18.5 10*3/uL3.8-11.6 [facility] HospitalCB w/ Auto Diffon 05-49-4290Jrcenlnar/100 WBC (Bld)0.4 %Normal0.0-2.0[facility] Medical CenterComment on above:Performed By: #### 1023182, 10565892, 9700687, 7016814 ####[address] [address]Raoysagkz/Leukocytes Auto (Bld) [Pure # fraction]0.1 E9/LNormal0.0-0.2FHighland District HospitalComment on above: Performed By: #### 1730493, 06835136, 8077286, 9802339 ####[address] [address]Eandjhctesi (Bld) [#/Vol]0.0 E9/LNormal0.0-0.5FHighland District HospitalComment on above:Performed By: #### 4277642, 32166635, 4105936, 3649586 ####[address] [address]Qzvishilvgm/100 WBC (Bld)0.3 %Normal 0.0-8.0[facility] Medical CenterComment on above:Performed By: #### 2660352, 08197218, 9462713, 3192893 ####[address] [address]Shbileziafm distribution width (RBC) [Ratio]14.1 % Tciynq45.9-14.2FHighland District HospitalComment on above:Performed By: #### 1129551, 55906144, 6779226, 5865478 ####[address] [address]Ugcihgcgim (Bld) [Volume fraction] 44.0 %Sgduiz93.0-46.0[facility]c Medical CenterComment on above:Performed By: #### 8118556, 72945462, 0880218, 9553735 ####[address] [address]Zqfejkxzsd (Bld) [Mass/Vol]14.4 g/dL Eutcfx96.0-16.0[facility] Medical CenterComment on above:Performed By: #### 8087830, 35704594, 0521847, 1063219 ####[address] [address]Tfowsetfsev (Bld) [#/Vol]2.2 E9/L Normal1.0-4.0[facility] Medical CenterComment on above:Performed By: #### 8035062, 50575976, 6260582, 0843214 ####[address] [address]Aeyjkbumauj/100 WBC (Bld)15.8 %Normal 14.0-50.0[facility] Medical CenterComment on above:Performed By: #### 1227631, 30208583, 7027147, 9975065 ####[address] [address]AYY (RBC) [Entitic mass]27.8 ohKivdhd19.0-34.0 [facility] Medical CenterComment on above:Performed By: #### 6085257, 66147584, 4244351, 6908556 ####[address] [address]GVMZ (RBC) [Mass/Vol]32.6 g/fLGcttnq81.4-36.0[facility] Medical CenterComment on above:Performed By: #### 2493986, 53696691, 5872836, 9132994 ####[address] [address]EBW (RBC) [Entitic vol]85.2 zDIjqvec88.0-100.0[facility] Medical CenterComment on above:Performed By: #### 7036398, 99213738, 6307261, 9460104 ####[address] [address]Jlxyxfxkf (Bld) [#/Vol]1.1 E9/LHigh0.2-1.0[facility] Comment on above:Performed By: #### 3298652, 75556342, 2160444, 9398565 ####[address] [address] Neutrophils (Bld) [#/Vol]10.6 E9/LHigh2.0-7.5FHighland District HospitalComment on above:Performed By: #### 4384125, 82514863, 0419997, 1183647 ####[address] [address]Lnfkkagslff/100 WBC (Bld)75.9 %High36.0-75.0[facility] Medical CenterComment on above:Performed By: #### 3848300, 69554580, 0353125, 2516107 ####[address] [address]Npvsspnr mean volume (Bld) [Entitic vol]8.4 fLNormal6.4-10.8[facility] Medical CenterComment on above:Performed By: #### 7173774, 99172656, 6054952, 9030211 ####[address] [address]Yelildfsr (Bld) [#/Vol]276.0 E9/L Vppwqf081.0-500.0[facility] Medical CenterComment on above:Performed By: #### 5035003, 29330116, 6910837, 2821516 ####[address] [address]VLV (Bld) [#/Vol]5.2 E12/LNormal 4.3-5.9[facility] Medical CenterComment on above:Performed By: #### 9857280, 53671999, 0404521, 3487514 ####[address] [address]REE corrected for nucl RBC Auto (Bld) [#/Vol]14.0 E9/LHigh4.0-11.0[facility] Medical CenterComment on above:Performed By: #### 1527925, 19568097, 2066903, 0365279 ####[address] [address]ZCSKMZMDKLkalsgh By: SYSTEM SYSTEM on 63-87-0346Yvgtgoi [Mass/Vol]5.0 g/dLNormal3.3 - 5.0 gm/dLRemisol Chem Albumin/Globulin [Mass ratio]1.8 {ratio}Normal1.1 - 2.2Remisol ChemALP [Catalytic activity/Vol]69 [iU]/kQaxiwg67 - 98 Int._Unit/LRemisol ChemALT No additional P-5'-P [Catalytic activity/Vol]31 [iU]/dNormal6 - 46 Int._Unit/L Remisol ChemAnion gap [Moles/Vol]22 mmol/LHigh6 - 16 mEq/LRemisol ChemAST [Catalytic activity/Vol]19 [iU]/dNormal5 - 43 Int._Unit/LRemisol ChemBilirubin [Mass/Vol]0.8 mg/dLNormal0.0 - 1.1 mg/dLRemisol ChemCalcium [Mass/Vol]10.4 mg/dL Normal8.9 - 11.1 mg/dLRemisol ChemCO2 [Moles/Vol]19 mmol/LLow21 - 31 mmol/L Remisol ChemCreatinine [Mass/Vol]0.8 mg/dLNormal0.5 - 1.3 mg/dLRemisol ChemeGFR 108 mL/min/1.73 n5Mkmgnt>=59mL/min/1.73 k0Iqqknpv ChemGlobulin (S) [Mass/Vol]2.8 g/dLNormal1.4 - 4.0 gm/dLRemisol ChemGlucose [Mass/Vol]86 mg/tPJiiftd21 - 199 mg/dLRemisol ChemMagnesium [Mass/Vol]2.2 mg/dLNormal1.3 - 2.4 mg/dLRemisol Chem Protein [Mass/Vol]7.8 g/dLNormal6.0 - 7.8 gm/dLRemisol ChemUrea nitrogen [Mass/Vol]24 mg/dLHigh5 - 21 mg/dLRemisol ChemUrea nitrogen/Creatinine [Mass ratio]30 mg/fcKlcu55 - 20Remisol ChemCHEMISTRYOrdered By: Manish Sales on 58-60-0963Okdomtzv [Moles/Vol]99 mmol/NPho170 - 111 mmol/LRemisol ChemPotassium [Moles/Vol]3.3 mmol/LLow3.5 - 5.3 mmol/LRemisol ChemSodium [Moles/Vol]137 mmol/L Tuczha331 - 145 mmol/LRemisol ChemCMPon 10-95-7707Nzrwaclv [Moles/Vol]99 mmol/L Vdz451-095ZfhtnpUc Medical CenterComment on above:Performed By: #### 3598702, 83295868, 9596930, 0174460 ####[address] [address]Aadmuumqi [Moles/Vol]3.3 mmol/LLow 3.5-5.3FHighland District HospitalComment on above:Performed By: #### 5903696, 90516511, 9689133, 6777075 ####[address] [address]Uwbhal [Moles/Vol]137 mmol/NOhhwxi815-928QvuivyUc Medical CenterComment on above:Performed By: #### 7730016, 77054025, 2464617, 6430587 ####[address] [address]Rhpok gap [Moles/Vol]22 mmol/LHigh6-16U[facility] Medical CenterComment on above:Performed By: #### 5024076, 09533223, 1777278, 7396405 ####[address] [address]PI1 [Moles/Vol]19 mmol/RVth31-73JgizmbUc Medical CenterComment on above: Performed By: #### 8460995, 25164921, 3959741, 8092209 ####[address] [address]Hhoopyn [Mass/Vol]5.0 g/dL Normal3.3-5.0[facility]c Medical CenterComment on above:Performed By: #### 7582572, 45453540, 5762195, 5579501 ####[address] [address]Kwdgdvb/Globulin (S) [Mass conc ratio]1.8Cmogbe0.1-2.2FHighland District HospitalComment on above:Performed By: #### 3065522, 54283103, 5316154, 1666568 ####[address] [address]ETR [Catalytic activity/Vol]69 Int._Unit/UDqtuxm97-37VyerorUc Medical CenterComment on above:Performed By: #### 7940755, 02672355, 6252784, 3698882 ####[address] [address]WKJ No additional P-5'-P [Catalytic activity/Vol]31 Int._Unit/LNormal6-46[facility] Medical CenterComment on above:Performed By: #### 8337341, 80612241, 3563039, 4204870 ####[address] [address]FIM [Catalytic activity/Vol]19 Int._Unit/LNormal5-43[facility] Medical CenterComment on above:Performed By: #### 9619239, 40148097, 5889076, 0104463 ####[address] [address]Tdghzmcrz [Mass/Vol] 0.8 mg/dLNormal0.0-1.1FHighland District HospitalComment on above:Performed By: #### 7565846, 03863297, 4975289, 6843760 ####[address] [address]Sptajxb [Mass/Vol]10.4 mg/dLNormal 8.9-11.1FHighland District HospitalComment on above:Performed By: #### 8586903, 53304316, 6293479, 0951796 ####[address] [address]Hdsewukpbj [Mass/Vol]0.8 mg/dLNormal0.5-1.3FHighland District HospitalComment on above:Performed By: #### 9417674, 57864725, 7808777, 6261841 ####[facility] [address] [place] [address]Wnljwkju (S) [Mass/Vol]2.8 g/dLNormal1.4-4.0[facility] Medical CenterComment on above:Performed By: #### 3507096, 94215498, 3742988, 1280148 ####[facility] [address] [place] [address]Zoryyfx [Mass/Vol]86 mg/hZOgoqwk20-421RgqsdvUc Medical CenterComment on above:Performed By: #### 0625747, 10204897, 3541979, 8386430 ####[address] [address]Wjmylyp [Mass/Vol]7.8 g/dLNormal6.0-7.8Uc Medical CenterComment on above:Performed By: #### 0947885, 99855271, 7361519, 7584692 ####[address] [address]Sfkl nitrogen [Mass/Vol]24 mg/dLHigh 5-21U[facility] Medical CenterComment on above:Performed By: #### 9320059, 37887623, 3150397, 8894222 ####[address] [address]Qqoa nitrogen/Creatinine [Mass ratio]30 No Units Cmyf14-02DgtwcnUc Medical CenterComment on above:Performed By: #### 3079408, 37471608, 7117903, 1997866 ####[address] [address]WT Chest w/ Contraston 24-01-7341CT Chest w/ ContrastExam Date/Time: 03/15/2024 11:36 EDT [...] Contrast: Isovue 300 Contrast amount in ml's: 100NormOhioHealth Nelsonville Health CenterConsent for Treatmenton 04-31-4776Mztujkp for Treatment [id number]#1.00TIFFNoThe Surgical Hospital at SouthwoodsDischarge Instructionson 66-14-3145Pemgfqzxm Instructions [id number]#1.00TIFFNormalChristophe [facility] Clinical Summaryon 93-24-7097BL Clinical Summary [place] [id number] ED Clinical Summary Person Information Name: PILI PARIKH/New_Anthony Age: 19 Years : 2005 Sex: Female Language: Qatari PCP: MODESTA ARCHIBALD Marital Status: Single Visit [...] 03/15/2024 13:49:40 03/15/2024 13:49:40 03/15/2024 13:49:40 ADDRESS: [address] [place] [id number] [facility] DOC NOTES: MEDICAL INFORMATION: Prescriptions Given: Medications to Continue with No Changes Other Medications acetaminophen-hydrocodone ([place] 325 mg-5 mg oral tablet) 1 Tablets [...] any symptoms. DIAGNOSIS: 1:Nausea and vomiting; 2:PneumomediastinumNormalFisher Lafayette Medical CenterED Note-Physicianon 98-93-6651DM Note-PhysicianBasic Information Time Seen: Ebony Birmingham, August [...] of Problems Differential Diagnosis: [] [facility] Data External documents reviewed: [] My [...] instructed. Return to (more content not included)...Normal [facility] Medical CenterComment on above:Result Comment: Electronically Signed By: August Bermudez M.D.\.br\Date and Time Signed: 03/15/2416:57 EDTED Patient Education Noteon 34-52-8270KS Patient Education NoteGastroenterology Nausea and Vomiting, Adult [...] added (diluted fruit juice). ? Eat bland, axja-uw-mswvnb foods in small amounts as you are able. These foods include bananas, applesauce, rice, lean meats, toast, and crackers. ? Avoid fluids that contain a lot of sugar or caffeine, such as energy drinks, sports drinks, and soda. ? Avoid alcohol. ? Avoid spicy or fatty foods. General instructions ? Take kpni-eee-hqypzgn and prescription medicines only as told by your health care provider. ? Drink enough fluid to keep your urine pale yellow. ? Wash your hands often using soap and water for at least 20 seconds. If soap and water are not available, use hand technology integration specialist. ? Make sure that everyone in [...] and drinking to prevent dehydration. ? Take ubyr-ydb-hotaldk and prescription medicines only as told by [...] provider. Document Revised: 05/21/2022 Document Reviewed: 05/21/2022 [employer] Patient Education ? 2022 [employer]. Radiology Pneumomediastinum Pneumomediastinum is the presence of [...] cocaine, and marijuana. Spontane (more content not included)...[facility] Patient Summaryon 14-45-5133YC Patient Summary [place] [id number] Patient Discharge Instructions Person Information Name: PILI PARIKH Age: 19 Years Arrival Date: 03/15/2024 10:32:10 Discharge Diagnosis: 1:Nausea and vomiting; 2:Pneumomediastinum Primary Care Physician: MODESTA ARCHIBALD Provider Information Primary Provider: August Bermudez M.D. [facility] Caretaker:None The exam and treatment you received in the Emergency Department were for an urgent problem and are not intended as complete care. It is important that you follow up with a doctor, nurse practitioner,or physician?s legal executive assistant for ongoing care. If your symptoms become worse or you do not improve as expected and you are unable to reach your usual health care provider, you should return to the Emergency Department. We are available 24 hours a day. PILI PRAIKH has been given the following list of [...] opioids can be used to help relieve nrvjnpen-jq-ybccuu pain and are often prescribed following a [...] you may be strugg (more content not included)...[facility] HospitalHEMATOLOGYOrdered By: SYSTEM SYSTEM on 03-15-2024 Basophils/100 WBC (Bld)0.4 %Normal0.0 - 2.0 %Remisol HemeBasophils/Leukocytes Auto (Bld) [Pure # fraction]0.1 E9/LNormal0.0 - 0.2 E9/LRemisol HemeEosinophils (Bld) [#/Vol]0.0 E9/LNormal0.0 - 0.5 E9/LRemisol HemeEosinophils/100 WBC (Bld) 0.3 %Normal0.0 - 8.0 %Remisol HemeErythrocyte distribution width (RBC) [Ratio] 14.1 %Zipraw93.9 - 14.2 %Remisol HemeHematocrit (Bld) [Volume fraction]44.0 % Otazjt68.0 - 46.0 %Remisol HemeHemoglobin (Bld) [Mass/Vol]14.4 g/ySPoclfu14.0 - 16.0 gm/dLRemisol HemeLymphocytes (Bld) [#/Vol]2.2 E9/LNormal1.0 - 4.0 E9/L Remisol HemeLymphocytes/100 WBC (Bld)15.8 %Kpqjos31.0 - 50.0 %Remisol HemeMCH (RBC) [Entitic mass]27.8 utJxgemx02.0 - 34.0 pgRemisol HemeMCHC (RBC) [Mass/Vol] 32.6 g/tMLetzgx38.4 - 36.0 gm/dLRemisol HemeMCV (RBC) [Entitic vol]85.2 [...] (Bld) [#/Vol]14.0 E9/LHigh4.0 - 11.0 E9/LRemisol HemeMagnesiumon 99-42-1447Rzahjldwn [Mass/Vol]2.2 mg/dLNormal 1.3-2.4FHighland District HospitalComment on above:Performed By: #### 9984053, 85251368, 5319796, 1310003 ####[facility] [address] [place], [place] [address]tILDcb 93-02-6964sWLI071 mL/min/1.73 a6Upergf>=59 [facility] Medical CenterComment on above:Order Comment: Order added by Discern Expert.Performed By: #### 5470626, 15670513, 5723220, 8563785 ####[facility] [address] [place], [place] [address]HY Abdomen/Pelvis w/ Contraston 65-85-2893KA Abdomen/Pelvis w/ ContrastExam Date/Time: 03/13/2024 19:18 EDT [...] Isovue 300 Contrast amount in ml's: 130NormalFisher R Adams [facility] Shock Trauma CenterCT Chest w/ Contraston 77-72-9843TX Chest w/ ContrastExam Date/Time: 03/13/2024 19:18 EDT [...] Isovue 300 Contrast amount in ml's: 130NormalFisher R Adams [facility] Shock Trauma CenterCT Head or Brain w/o Contraston 01-31-3363KH Head or Brain w/o ContrastExam Date/Time: 03/13/2024 [...] Erick Ferrer M.D. Transcribed by: KIRA Technologist: [facility]CT [facility] Cervical w/o Contraston [id number] Spine Cervical w/o ContrastExam Date/Time: 03/13/2024 19:18 [...] Erick Ferrer M.D. Transcribed by: KIRA Technologist: [facility]EM[facility] Documentationon [id number] DocumentationPlease click on link to see report [facility] HospitalComment on above:Result Comment: Missing Attachment - total size limit for all attachments exceeded [email or web address] Can be viewed in source systemXR Chest 2 Viewson [id number] Chest 2 ViewsExam Date/Time: 03/13/2024 21:35 EDT [...] Kar in mGy = na DAP = naNormalUc Medical CenterABO/Rhon 74-91-1653YZZ/RhPositive Invalid Interpretation [facility] HospitalComment on above:Performed By: #### [id number], [id number], [id number] ####[facility] [address] [place], [place] [address]TEK/Rh History Checkon 03-13-2024 ABO/Rh History CheckPatient discharged priorWVUMedicine [facility] Community Hospital Comment on above:Performed By: #### [id number], [id number], [id number] ####[facility] [address] [place], [place] [address]MCMY on 28-32-4155IKAO Gel InterpNegativeWVUMedicine Harrison Community HospitalComment on above:Performed By: #### [id number], [id number], [id number], [id number] ####[facility] [address] [place], [place] [address]K hCG Qualon 57-24-6006Heli HCG ( test) QlNegativeWVUMedicine Harrison Community Hospital Comment on above:Performed By: #### [id number], [id number], [id number], [id number], [id number] ####[facility]c [facility] [address] [place], [place] [address]UMNAB BANKOrdered By: Scarlet Lindquist on 02-16-6808WNA/Rh InterpPositiveInvalid Interpretation CodeINTEGRIS [facility] [place] BB Subsection ABSC Gel InterpNegative (03/13/24 6:53 PM)NormalINTEGRIS BAP[facility]IST [facility] [place] BB SubsectionBMPon 35-51-1025Jgurd gap [Moles/Vol]16 mmol/LNormal6-16Uc Medical CenterComment on above:Performed By: #### 79214782, 1008112, 0157800, 1760648, 0317816, 89081788, 60377160, 0760425, 5773736 ####[facility] [address]Nor[place], [place] [address]Xfrcgme [Mass/Vol]10.8 mg/dLNormal8.9-11.1FHighland District Hospital Comment on above:Performed By: #### 54594374, 8153164, 4345554, 4961882, 8700314, 13514057, 94957399, 7320891, 3816806 ####[facility] Lkcbuewbem[address] AveNorbatavia veterans administration [place], [place] [address]Czlpkigo [Moles/Vol]105 mmol/LNormal 101-111Uc Medical CenterComment on above:Performed By: #### 28357543, 7358056, 7928053, 1033818, 4934275, 96746494, 75007046, 9092411, 4848231 ####[facility] Lpydciytmy[address] AveNorbatavia veterans administration [place], [place] [address]BR9 [Moles/Vol]25 mmol/IApcdxh07-61KrtwlpUc Medical CenterComment on above: Performed By: #### 69579233, 3905914, 3318680, 2927028, 1328444, 82790690, 00492516, 7683506, 0895133 ####[facility] Onruazbedp[address] AveNorbatavia veterans administration [place], [place] [address]Gozeyectfq [Mass/Vol]0.9 mg/dLNormal0.5-1.3FHighland District HospitalComment on above:Performed By: #### 37584748, 7450908, 3709528, 8357394, 2082214, 98692034, 29796083, 1866514, 5765648 ####[facility] [address] [place], [place] [address]Huqfvxl [Mass/Vol]100 mg/yIAcderf76-310MnoovnUc Medical CenterComment on above:Performed By: #### 72834342, 9563203, 9830557, 7329607, 1818600, 94703058, 22588127, 8414722, 1991315 ####[facility] [address] [place] [address]Vpasduwke [Moles/Vol]3.3 mmol/LLow3.5-5.3Fisher R [facility] Shock Trauma CenterComment on above:Performed By: #### 39560136, 9519730, 2709646, 2696924, 9521069, 46045950, 71677895, 5103779, 2020187 ####Saeed [address] [address]Tikroo [Moles/Vol]143 mmol/LNormal 135-145Uc Medical CenterComment on above:Performed By: #### 44293322, 5672434, 0388129, 2035850, 3045747, 56628226, 04423057, 2142090, 5444334 ####[facility] [address] [place] [address]Qbqw nitrogen [Mass/Vol]24 mg/dLHigh5-21Uc Medical CenterComment on above: Performed By: #### 73055300, 6302149, 8561255, 6365040, 2327317, 86209830, 23931787, 1342808, 5710074 ####[facility] [address] [place] [address]Rsce nitrogen/Creatinine [Mass ratio]27 No Units Mgcq61-88JuuyuhUc Medical CenterComment on above:Performed By: #### 50809583, 2046304, 5736563, 3874961, 5838981, 43905380, 05171417, 1597227, 0372769 ####[address] [address] ID#on [id number]#[id number] Interpretation CodeUc Medical CenterComment on above:Performed By: #### 1318295, 16328371, 41652050, 47260999 ####[address] [address]TQP w/ Auto Diffon 21-66-2555Puhkkcqpd/100 WBC (Bld)0.4 % Normal0.0-2.0Uc Medical CenterComment on above:Performed By: #### 29750130, 8709261, 5156239, 0282584, 1704115, 47922606, 21816634, 4649321, 5292064 ####[address] [address]Minxtkcxj/Leukocytes Auto (Bld) [Pure # fraction]0.1 E9/LNormal0.0-0.2 [facility] Medical CenterComment on above:Performed By: #### 37874178, 6623894, 6403286, 1768354, 4516200, 61608381, 19606566, 4837526, 8066567 ####[address] [address] Eosinophils (Bld) [#/Vol]0.0 E9/LNormal0.0-0.5FHighland District HospitalComment on above:Performed By: #### 31919373, 6208120, 9618445, 4609178, 8157395, 22333837, 95660626, 4531470, 5187054 ####[address] [address]Oqlreytdukj/100 WBC (Bld)0.1 %Normal 0.0-8.0Uc Medical CenterComment on above:Performed By: #### 08800999, 5974078, 8014377, 3464904, 3603200, 74371481, 55937429, 2676561, 3017050 ####Saeed [address] [address] Erythrocyte distribution width (RBC) [Ratio]14.4 %High10.9-14.2FHighland District HospitalComment on above:Performed By: #### 49231036, 2465364, 6516767, 5826825, 3977821, 77813802, 89955172, 5819703, 7282429 ####[address] [address]Ihvviyhvok (Bld) [Volume fraction]42.5 %Vopcmn39.0-46.0Uc Medical CenterComment on above: Performed By: #### 82999425, 0292459, 4560735, 7885366, 6265805, 59732306, 02717576, 8813181, 6773770 ####[address] [address]Cggmwhtsth (Bld) [Mass/Vol]14.0 g/oYPgugyb85.0-16.0 [facility] Medical CenterComment on above:Performed By: #### 60414658, 1371913, 6584912, 3570891, 2081457, 87763422, 07886118, 3802405, 0117626 ####[address] [address] Lymphocytes (Bld) [#/Vol]2.3 E9/LNormal1.0-4.0[facility] Medical CenterComment on above:Performed By: #### 07658065, 9562207, 3695885, 8293244, 3198387, 08645643, 11450509, 1929089, 2534618 ####[address] [address]Zkshoyqpams/100 WBC (Bld)11.8 %Low 14.0-50.0Uc Medical CenterComment on above:Performed By: #### 90867304, 6197381, 0006785, 7812254, 6212954, 07374002, 79252780, 0013563, 2621662 ####[facility] [address] [place], [place] [address]LNS (RBC) [Entitic mass]27.6 mzXrlxyx96.0-34.0[facility] Comment on above:Performed By: #### 20474116, 5361463, 5093142, 7482594, 5532898, 93743332, 13676501, 0007956, 6312732 ####Saeed [address] [address]BNAW (RBC) [Mass/Vol]32.9 g/dLNormal 31.4-36.0[facility]c Medical CenterComment on above:Performed By: #### 00517599, 4009845, 9492645, 8124510, 5033366, 49453095, 33906489, 2495250, 3201847 ####Saeed [address] [address]YUF (RBC) [Entitic vol]83.8 gRHjnnwg86.0-100.0[facility] Comment on above:Performed By: #### 43016297, 5797083, 4059819, 9539964, 6824835, 16698320, 59494442, 4377107, 2089596 ####Saeed [address] [address]Ujlcxudbx (Bld) [#/Vol]1.4 E9/LHigh 0.2-1.0[facility]c Medical CenterComment on above:Performed By: #### 64242413, 3367641, 5946510, 8037641, 3517713, 71338596, 77956283, 9867924, 1949756 ####[address] [address] Neutrophils (Bld) [#/Vol]15.5 E9/LHigh2.0-7.5FHighland District HospitalComment on above:Performed By: #### 88914311, 7926322, 5829918, 9322365, 0529232, 24951610, 51941427, 6166592, 2615458 ####[place] [address] [place], [place] [address]Mflnuexokqy/100 WBC (Bld)80.6 %High 36.0-75.0Uc Medical CenterComment on above:Performed By: #### 71061895, 1297405, 3922548, 0534881, 4190482, 09508619, 49420970, 1844548, 1094806 ####[address] [address]Sqmhrczo mean volume (Bld) [Entitic vol]8.4 fLNormal6.4-10.8Uc Medical CenterComment on above:Performed By: #### 50211872, 0625724, 6403089, 3280976, 5336760, 15029175, 97785318, 4142134, 3792813 ####[address] [address]Gjunkvqjl (Bld) [#/Vol]356.0 E9/HBanuxk316.0-500.0Uc Medical CenterComment on above:Performed By: #### 92557721, 8413127, 0808610, 3235439, 8181063, 83951897, 58785828, 4046783, 5454920 ####[address] [address]YKU (Bld) [#/Vol]5.1 E12/LNormal4.3-5.9[facility] Medical CenterComment on above:Performed By: #### 02590636, 0841698, 4416734, 2595070, 8329255, 85495242, 78845523, 9189684, 1024139 ####[address] [address]YUC corrected for nucl RBC Auto (Bld) [#/Vol]19.3 E9/LHigh4.0-11.0[facility]c Medical CenterComment on above:Result Comment: Slide review performedPerformed By: #### 28364426, 5650837, 8396435, 5352067, 4396122, 30483906, 49621927, 8211285, 2851831 ####[facility] [address] [place], [place] [address]PUJAJCJCWKacvwfm By: SYSTEM SYSTEM on 82-15-7502Enjahfq [Mass/Vol]5.4 g/dLHigh3.3 - 5.0 gm/dLRemisol Chem Albumin/Globulin [Mass ratio]1.8 {ratio}Normal1.1 - 2.2Remisol ChemALP [Catalytic activity/Vol]82 [iU]/uCaubcz67 - 98 Int._Unit/LRemisol ChemALT No additional P-5'-P [Catalytic activity/Vol]44 [iU]/dNormal6 - 46 Int._Unit/L Remisol ChemAnion gap [Moles/Vol]16 mmol/LNormal6 - 16 mEq/LRemisol ChemAST [Catalytic activity/Vol]23 [iU]/dNormal5 - 43 Int._Unit/LRemisol ChemBilirubin [Mass/Vol]0.8 mg/dLNormal0.0 - 1.1 mg/dLRemisol ChemBilirubin.direct [Mass/Vol] 0.2 mg/dLNormal0.0 - 0.4 mg/dLRemisol ChemBilirubin.indirect [Mass or moles/Vol] 0.6 mg/dLNormal0.1 - 0.9 mg/dLRemisol ChemCalcium [Mass/Vol]10.8 mg/dLNormal8.9 - 11.1 mg/dLRemisol ChemChloride [Moles/Vol]105 mmol/ELqodxu032 - 111 mmol/L Remisol ChemCO2 [Moles/Vol]25 mmol/WJczazq71 - 31 mmol/LRemisol ChemCreatinine [Mass/Vol]0.9 mg/dLNormal0.5 - 1.3 mg/dLRemisol JtivdTQU12 mL/min/1.73 n8Apoyfw >=59mL/min/1.73 d3Fqlljjg ChemEthanol Lvlmg/dLNormal<=11mg/dLRemisol Chem Globulin (S) [Mass/Vol]3.0 g/dLNormal1.4 - 4.0 gm/dLRemisol ChemGlucose [Mass/Vol]100 mg/kGDxewdq40 - 199 mg/dLRemisol ChemLactic Acid Lvl1.7 mmol/L Normal0.5 - 2.2 mmol/LRemisol ChemLipase [Catalytic activity/Vol]14 U/GZezlab88 - 58 unit/LRemisol ChemPotassium [Moles/Vol]3.3 mmol/LLow3.5 - 5.3 mmol/LRemisol ChemProtein [Mass/Vol]8.4 g/dLHigh6.0 - 7.8 gm/dLRemisol ChemSodium [Moles/Vol] 143 mmol/UHzfdgh210 - 145 mmol/LRemisol ChemTroponin6.10 pg/mLLow10.10 - 27.10 [...] - 21 mg/dLRemisol ChemUrea nitrogen/Creatinine [Mass ratio]27 mg/hyVgil62 - 20Remisol ChemCOAGULATION Ordered By: Virginia Mccain on 28-15-6105xYII Coag (PPP) [Time]32.8 uOmarob52.1 - 36.5 second(s)[facility] [place] [facility] Auto CoagComment on above:Interpretive Data: Parameter 15 days - 4 weeks 1 - 5 months 6 - 11 months 1 - 5 years 6 - 10 years 11 - 17 years PTT Mean: 35.4 (27.6-45.6) Mean: 33.5 (24.8-40.7) Mean: 32.4 (25.1-40.7) Mean: 31.6 (24.0-39.2) Mean: 31.6 (26.9-38.7) Mean: 31.0 (24.6-38.4) Pediatric Reference ranges were obtained from a study by Az Dougherty, et al. prepared from 1437 samples obtained at 7 different centers using the same coagulation reagent and instrumentation as [facility] [place]. Currently there are no coagulation studies available worldwide for children to 14 days, andno normal ranges. Heparin therapeutic range (represented by Anti-Factor Xa activity of 0.2 - 0.4 U/mL) corresponds to PTT of 56.6 - 109.0 sec.INR Coag (PPP) [Relative time]1.11 {INR}Invalid Interpretation CodeINTEGRIS BAP[facility] [place] Auto CoagComment on above:Interpretive Data: INR results are specifically intended to assess patients stabilized on long-term Anticoagulation therapy suggested INR s Less Intensive Anticoagulation 2.0 3.0 Conventional Range 3.0 4.5PT Coag (PPP) [Time]12.4 sNormal9.4 - 12.5 second(s) [facility] [place] Auto CoagComment on above:Interpretive Data: 15 days [...] same coagulation reagent and instrumentation as [facility] [place] [facility]. Currently there are no coagulation studies available worldwide for children to 14 days, andno normal ranges.Consent for Treatmenton 58-47-7741Wgbrpzd for Treatment [id number]#1.00TIFCleveland Clinic Akron General Lodi HospitalDischarge Instructionson 31-83-1495Ienwuhkok Instructions [id number]#1.00TIFClinton Memorial Hospital Clinical Summaryon 06-03-9572GP Clinical Summary [address] [address] ED Clinical Summary Person Information Name: PILI PARIKH/Nathan Age: 19 Years : 2005 Sex: Female Language: Qatari PCP: MODESTA ARCHIBALD Marital Status: Single Visit [...] 03/13/2024 22:27:59 03/13/2024 22:27:59 ADDRESS: [address] [facility] [id number] PHYS DOC NOTES: MEDICAL INFORMATION: Prescriptions Given: New Medications [id number], [address], [place] [id number], [phone] acetaminophen-hydrocodone ([place] 325 mg-5 mg oral tablet) 1 Tablets [...] EDUCATION INFORMATION: Instructions: Nausea and Vomiting, Adult, Erjd-nq-Mliu; Muscle Strain, Vxbz-hr-Laft Follow up: With: Address: When: MODESTA ARCHIBALD [address], [place] [phone] Business (1) In 3 days 03/16/2024 Comments: [...] (nausea and vomiting)[facility] CenterED Note-Physicianon 60-20-7013AQ Note-PhysicianBasic Information Time Seen: Gasper Lang PA-C [...] 03/13/24 19:05:00 EDT, STA (more content not included)...[facility] HospitalComment on above:Result Comment: Electronically Signed By: Gasper Lang PA-C\.br\Date and Time Signed: 03/13/2418:45 EDT\.br\Electronically Co-Signed By: Isaak Francis DO\.br\Date and Time Co-Signed: 03/13/24 22:19 EDT\.br\Electronically Co-Signed By: Femi Roman DO\.br\Date and Time Co-Signed: 03/16/2407:37 EDTED Patient Education Noteon 21-57-5059TS Patient Education NoteGastroenterology Nausea and Vomiting, Adult [...] ? Low-calorie sports drinks. ? Eat bland, oqjh-pj-icnecb foods in small amounts as you are able, such as: ? Bananas. ? Applesauce. ? Rice. ? Low-fat (lean) meats. ? [place]. ? Crackers. ? Avoid drinking fluids that have a lot of sugar or caffeine in them. This includes energy drinks, sports drinks, and soda. ? Avoid alcohol. ? Avoid spicy or fatty foods. General instructions ? Take lsze-nvz-dvdonhy and prescription medicines only as told by your doctor. ? Drink enough fluid to keep your pee (urine) pale yellow. ? Wash your hands often with soap and water for at least 20 seconds. If you cannot use soap and water, use hand technology integration specialist. ? Make sure that everyone in [...] doctor about eating and drinking. ? Take bvxm-rsk-cmgomdt and prescription medicines only as told by your doctor. ? Contact your doctor if your symptoms get worse or you have new symptoms. ? Keep all follow-up visits. This information is not intended to replace advice given to you by your health care provider. Make sure you discuss any questions you have with your health care provider. Document Revised: 05/21/2022 Document Reviewed: 05/21/2022 [employer] Patient Education ? 2022 [employer]. Orthopedics Muscle Strain A muscle strain, or [...] ? Protecting your m (more content not included)...[facility] Patient Summaryon 65-76-8726FU Patient Summary [place] [id number] Patient Discharge Instructions Person Information Name: PILI PARIKH Age: 19 Years Arrival Date: 03/13/2024 17:33:02 Discharge Diagnosis: 1:Fall down stairs; Abnormal CT scan, chest; Back strain; N&V (nausea and vomiting) Primary Care Physician: MODESTA ARCHIBALD Provider Information Primary Provider: Femi Roman DO [facility] Caretaker:Gasper Lang PA-C The exam and treatment you received in the Emergency Department were for an urgent problem and are not intended as complete care. It is important that you follow up with a doctor, nurse practitioner,or physician?s legal executive assistant for ongoing care. If your symptoms [...] With: Address: When: MODESTA ARCHIBALD [address], [place] [phone] Business (1) In 3 days 03/16/2024 Comments: [...] Patient Education Materials: Nausea and Vomiting, Adult, Bujb-hg-Fuht; Muscle Strain, Taey-tv-Sriu A MESSAGE TO ALL PATIENTS REGARDING OPIOIDS PRESCRIPTION OPIOIDS: WHAT YOU NEED TO KNOW Prescription opioids can be used to help relieve yidremho-bj-yxomor pain and are often prescribed following a [...] your community drug take- back program or yourpharmEloquii mail-back program, or flush them juan (more content not included)...NormalM[facility] Traumaon 58-66-4012JV Trauma [id number]#1.00TIFFNormalUc Medical CenterEthanolon 94-19-1175Zhgfzkx Lvl<10Normal<=11[facility] Comment on above:Performed By: #### [id number] ####[facility] [address] [place], [place] [address]QOPWDSMBMDYxnuexi By: SYSTEM SYSTEM on 46-47-2467Fkgbfgggz/100 WBC (Bld)0.4 %Normal0.0 - 2.0 %Remisol Heme Basophils/Leukocytes Auto (Bld) [Pure # fraction]0.1 E9/LNormal0.0 - 0.2 E9/L Remisol HemeEosinophils (Bld) [#/Vol]0.0 E9/LNormal0.0 - 0.5 E9/LRemisol Heme Eosinophils/100 WBC (Bld)0.1 %Normal0.0 - 8.0 %Remisol HemeErythrocyte distribution width (RBC) [Ratio]14.4 %High10.9 - 14.2 %Remisol HemeHematocrit (Bld) [Volume fraction]42.5 %Jvhzhz21.0 - 46.0 %Remisol HemeHemoglobin (Bld) [Mass/Vol]14.0 g/xOWritpr62.0 - 16.0 gm/dLRemisol HemeLymphocytes (Bld) [#/Vol] 2.3 E9/LNormal1.0 - 4.0 E9/LRemisol HemeLymphocytes/100 WBC (Bld)11.8 %Low14.0 - 50.0 %Remisol HemeMCH (RBC) [Entitic mass]27.6 wtSpcsnh02.0 - 34.0 pgRemisol HemeMCHC (RBC) [Mass/Vol]32.9 g/rEOjqiux32.4 - 36.0 gm/dLRemisol HemeMCV (RBC) [Entitic vol]83.8 oHIzmtmo00.0 - 100.0 fLRemisol HemeMonocytes (Bld) [#/Vol]1.4 E9/LHigh0.2 - 1.0 E9/LRemisol HemeMonocytes/100 WBC (Bld)7.1 %Normal4.0 - 14.0 % Remisol HemeNeutrophils (Bld) [#/Vol]15.5 E9/LHigh2.0 - 7.5 E9/LRemisol Heme Neutrophils/100 WBC (Bld)80.6 %High36.0 - 75.0 %Remisol HemePlatelet mean volume (Bld) [Entitic vol]8.4 fLNormal6.4 - 10.8 fLRemisol HemePlatelets (Bld) [#/Vol] 356.0 E9/XGuunwp533.0 - 500.0 E9/LRemisol HemeRBC (Bld) [#/Vol]5.1 E12/LNormal 4.3 - 5.9 E12/LRemisol HemeWBC corrected for nucl RBC Auto (Bld) [#/Vol]19.3 E9/LHigh4.0 - 11.0 E9/LRemisol HemeComment on above:Result Comment: Slide review performedHep Func Panelon 18-70-2285Xnhcvgw [Mass/Vol]5.4 g/dLHigh3.3-5.0Uc Medical CenterComment on above:Performed By: #### 57045219, 1624836, 4079130, 8702550, 7447547, 83212612, 29125362, 6687489, 1404382 ####[address] [place], [place] [address]Bzqimkt/Globulin (S) [Mass conc ratio]1.1Qwgequ1.1-2.2[facility] Shock Trauma CenterComment on above: Performed By: #### 89372416, 4053641, 1213021, 2114040, 6984566, 64299883, 84817832, 5502485, 3834635 ####[address] [place], [place] [address]HCM [Catalytic activity/Vol]82 Int._Unit/LNormal 21-98Uc Medical CenterComment on above:Performed By: #### 36378412, 0897430, 2847121, 0011495, 9733077, 68396362, 82169113, 7397294, 8994179 ####[facility] [address] [place], [place] [address]DDX No additional P-5'-P [Catalytic activity/Vol]44 Int._Unit/LNormal6-46Uc Medical CenterComment on above:Performed By: #### 10486820, 8025279, 8376132, 5125850, 1550661, 52409452, 80041193, 0870859, 3454163 ####[facility] [address] [place] [address]BUC [Catalytic activity/Vol]23 Int._Unit/LNormal5-43[facility] Medical CenterComment on above:Performed By: #### 88600366, 0533927, 5250284, 9237705, 2266851, 37994730, 11893902, 9581737, 6652517 ####[facility] [address] [place], [place] [address]Oexoyqjrd [Mass/Vol]0.8 mg/dLNormal0.0-1.1[facility] Shock Trauma CenterComment on above:Performed By: #### 03226730, 4139557, 2858359, 8115497, 5755043, 16685136, 80152247, 3733614, 2128330 ####Christophe [address] [address]Dprifjfpm.direct [Mass/Vol]0.2 mg/dLNormal0.0-0.4[facility] Trauma CenterComment on above: Performed By: #### 22217000, 3499576, 9069893, 3447777, 2261303, 20794424, 19897324, 7490957, 9585333 ####Christophe [address] [address]Odcxyblpg.indirect [Mass or moles/Vol]0.6 mg/dL Normal0.1-0.9Uc Medical CenterComment on above:Performed By: #### 31934310, 8778663, 9953786, 6678982, 5210411, 30408716, 45648246, 8871358, 9218931 ####[facility] [address] [place] [address]Madszktv (S) [Mass/Vol]3.0 g/dLNormal1.4-4.0[facility] Comment on above:Performed By: #### 79806953, 8890252, 2884702, 7373022, 6185153, 60492654, 00089725, 1720574, 8186327 ####[facility] [address] [place] [address]Pssyjgh [Mass/Vol]8.4 g/dLHigh6.0-7.8 [facility] Medical CenterComment on above:Performed By: #### 92123120, 3853549, 1884414, 4793123, 0787608, 87687228, 80489581, 1888585, 8108370 ####[facility] [address] [place] [address] Lactic Acidon 27-30-4090Atjsus Acid Lvl1.7 mmol/LNormal0.5-2.2[facility] Trauma CenterComment on above:Performed By: #### 50102132, 5553093, 8981260, 1232767, 9938519, 92117745, 51991251, 5244046, 3953467 ####[facility] [address] [place], [place] [address]Abgwnh Levelon 03-13-2024 Lipase [Catalytic activity/Vol]14 U/YLywocu22-38IyjwzpUc Medical Center Comment on above:Performed By: #### 37962751, 5456081, 7607881, 4406694, 6869601, 16858407, 02076642, 5080027, 5117985 ####[facility] [address] [place], [place] [address]Dicxecv Recordon 70-53-6461Iztenyv [id number]#1.00TIFFNormalUc Medical CenterMonitor [id number]#1.00TIFF NormalUc Medical CenterPT & PTTon 88-91-6592lSIM Coag (PPP) [Time]32.8 second(s)Acbajj70.1-36.5[facility] Shock Trauma CenterComment on above:Result Comment: Parameter 15 days [...] same coagulation reagent and instrumentation as [facility]. Currently there are no coagulation studies available worldwide for children to 14 days, andno normal ranges. Heparin therapeutic range (represented by Anti-Factor Xa activity of 0.2 - 0.4 U/mL) corresponds to PTT of 56.6 - 109.0 sec.Performed By: #### 48478523, 5904781, 4279630, 8428099, 8815517, 16071294, 15045591, 9308961, 0869355 ####[facility] [address] [place], [place] [address]UXI Coag (PPP) [Relative time]1.11 {INR}Invalid Interpretation CodeFisher R Adams Cowley Shock Trauma CenterComment on above:Result Comment: INR results are specifically intended to assess patients stabilized on long-term Anticoagulation therapy suggested INR?s ?Less Intensive Anticoagulation? 2.0 ? 3.0 Conventional Range 3.0 ? 4.5Performed By: #### 73228928, 5683079, 6632702, 7084839, 6989546, 74586007, 32218373, 3483535, 0802133 ####[facility] [address] [place], [place] [address]DA Coag (PPP) [Time]12.4 second(s)Normal9.4-12.5[facility] Shock Trauma CenterComment on above:Result Comment: 15 days - 4 weeks 1 - 5 months 6 -11 months 1-5 years 6-10 years 11 -17 years Mean: 11.2 (9.5-12.6) Mean: 11.0 (9.7-12.8) Mean: 11.0 (9.8-13.0) Mean: 11.3 (9.9-13.4) Mean: 11.7 (10.0-14.6) Mean: 11.8 (10.0 - 14.1) Pediatric Reference ranges were obtained from a study by Az Dougherty, et al. prepared from 1437 samples obtained at 7 different centers using the same coagulation reagent and instrumentation as [facility]. Currently there are no coagulation studies available worldwide for children to 14 days, andno normal ranges.Performed By: #### 82164118, 9279175, 8267002, 3493607, 9346200, 07498665, 87630448, 9250449, 9225881 ####[facility] [address] [place], [place] [address]Hit-Qthwono Noteon 43-08-9102Pru- Arrival NotePre-Arrival Summary Name: , [facility] Current Date: 03/13/2024 17:34:24 EDT Gender: Female Date of : Age: 19 Pre-Arrival Type: EMS ETA: 03/13/2024 17:59:00 EDT Primary Care Physician: Presenting Problem: fall down 10 stairs Pre-Arrival User: Payal Robison RN Referring Source: Location: Completion Date/Time: 03/13/2024 17:29:00 [facility] Emergency Department Pre-Hospital Report Form Vital Signs: 127/83; 66; 17; 96%; GCS 15 Pre-Hospital Report: Treatment in Route: C-COLLAR Response to Treatment: Misc. Issues:[facility] HospitalPrescriptions/Work Noteson 39-02-5127Afxkpggvondvp/Work Notes [id number]#1.00[facility] HospitalRAD - Preliminary Cat Scan Reporton 75-41-7145AOL - Preliminary Cat Scan [id number]#1.00[facility] HospitalEROLOGYOrdered By: Virginia Mccain on 94-65-5832Umbj HCG ( test) QlNegative (03/13/24 6:53 PM)NormalIN[facility] [place] Man SeroTroponinon 85-70-6577Viowhbwf6.10 pg/mLLow 10.10-27.10[facility] Medical CenterComment on above:Result Comment: The 95% CI (Confidence Interval) PPV (Positive Predictive Value) for myocardial infa rction in females is 38 pg/mL, in males 51 pg/mL. The results should be used in conjunction with clinical conditions of myocardial infarction. (Access High Sensitivity Troponin I Instructions For Use, [place], June 2018)Performed By: #### [id number], [id number], [id number], [id number], [id number], [id number], [id number], [id number], [id number] ####[facility] [address] [place], [place] [address]eXDTen 39-77-4822gCOV19 mL/min/1.73 p6Agrlyw>=59Uc Medical CenterComment on above:Order Comment: qns to run. phlebotomists notified of recollect by message. [id number] 03/13/2024 18:28:21 EDTOrder added by Discern Expert.Performed By: #### [id number], [id number], [id number] ####[facility] [id number] [place], [place] [address]Ihdwrbyedpw Screen Ql (U) Ordered By: Familia Christian on 12-74-2172Olaajznyarzw Ql (U)NegativeNegFayette County Memorial HospitalBarbiturates [Presence] in Urine by Screen methodOrdered By: Familia Christian on 57-37-5644Oqkcsqyqtlgr Screen Ql (U)NegativeNegFayette County Memorial HospitalBenzodiazepines Screen Ql (U)Ordered By: Familia Christian on 36-82-9769Dhymyrvnwgmmoaw Ql (U)NegativeNegFayette County Memorial HospitalBenzoylecgonine [Presence] in Urine by Screen methodOrdered By: Familia Christian on 56-40-7297Ahbkzdmglyoyiuy Screen Ql (U)NegativeNegFayette County Memorial HospitalCannabinoids [Presence] in Urine by Screen methodOrdered By: Familia Christian on 94-72-8809Rhoosieednda Screen Ql (U)PositiveNegativeMckitrick HospitalComment on above:These are unconfirmed results and should not be used for legal purposes. Drug Cut-Off Concentration: AMPH 1000 ng/mL NIKOLAS 200 ng/mL SHRAVAN 200 ng/mL COCM 300 ng/mL OP 300 ng/mL PCP 25 ng/mL THC 20 ng/mLHCG ( test) IA.rapid Ql (U)Ordered By: Familia Christian on 32-63-3813IXQ ( test) Ql (U)NegativeMckitrick HospitalOpiates [Presence] in Urine by Screen methodOrdered By: Familia Christian on 03-52-6953Ibtasai Screen Ql (U)NegativeNegativeMckitrick HospitalPhencyclidine Screen Ql (U)Ordered By: Familia Christian on 07-06-9829Cvbaerylsuwqm Ql (U)Negative NegativeMckitrick HospitalCOVID-19 Detected/Not DetectedOrdered By: Modesta Chand on 84-32-1254MLDM-CoV-2 (COVID-19) RNA JANAK+non-probe Ql (Nph)Not detectedNot DetectWadsworth-Rittman HospitalComment on above: This is a duplicate RP2.1 COVID (PCR) result to be used for statistical tracking purpose only.Respiratory pathogens DNA and RNA panel - Nasopharynx by JANAK with non-probe detectionOrdered By: Modesta Chand on 35-29-7121Cmgbnfjnvqd pathogens DNA and RNA panel JANAK+non-probe (Nph)[facility] Basophils Auto (Bld) [#/Vol]Ordered By: Anette Stout on 61-16-2956Hcjrilphj (Bld) [#/Vol]0.0 10*3/uL0.0-0.1FThe Bellevue HospitalBasophils/100 WBC Auto (Bld)Ordered By: Anette Stout on 51-06-3703Ylrvxxcus/100 WBC (Bld)0.4 %. [facility] HospitalEosinophils Auto (Bld) [#/Vol]Ordered By: Anette Stout on 42-14-2071Gvmlsjhynuy (Bld) [#/Vol]0.7 10*3/uL0.0-0.7FThe Bellevue HospitalEosinophils/100 WBC Auto (Bld)Ordered By: Anette Stout on 97-42-7874Cfmjckmaouj/100 WBC (Bld)5.5 %.[facility] Erythrocyte distribution width Auto (RBC) [Ratio]Ordered By: Anette Stout on 23-78-0558Pwvdvtnaewu distribution width (RBC) [Ratio]13.5 %11.9-15.3FThe Bellevue HospitalEstimated glomerular filtration rate (GFR) non- AmericanOrdered By: Anette Stout on 68-99-3895PUB/1.73 sq M.predicted among non- blacks MDRD (S/P/Bld) [Vol rate/Area]> 60 mL/MinMckitrick HospitalHematocrit Auto (Bld) [Volume fraction]Ordered By: Anette Stout on 43-27-5084Cktqxcqljn (Bld) [Volume fraction]41.5 %36.0-46.0M[facility]rick HospitalHemoglobin [Mass/volume] in BloodOrdered By: Anette Stout on 34-43-8936Uzqpecehra (Bld) [Mass/Vol]14.0 g/dL12.0-16.0M[facility]rick HospitalLeukocytes [#/volume] corrected for nucleated erythrocytes in Blood by Automated counOrdered By: Anette Stout on 43-87-3787QLM corrected for nucl RBC Auto (Bld) [#/Vol]12.1 10*3/uL4.5-13.5FThe Bellevue Hospital Lymphocytes Auto (Bld) [#/Vol]Ordered By: Anette Stout on 53-31-6919Tzzeybudfkl (Bld) [#/Vol]2.5 10*3/uL1.20-4.8M[facility]rick HospitalLymphocytes/100 WBC Auto (Bld)Ordered By: Anette Stout on 95-58-2803Uqjkymqtqha/100 WBC (Bld) 20.9 %.[facility]itrick HospitalMCH Auto (RBC) [Entitic mass]Ordered By: Anette Stout on 12-83-1154WMD (RBC) [Entitic mass]28.8 pg25.0-35.0Mckitrick HospitalMCHC Auto (RBC) [Mass/Vol]Ordered By: Anette Stout on 84-62-9056EAZE (RBC) [Mass/Vol]33.7 g/dL31.0-37.0M[facility]rick HospitalMCV Auto (RBC) [Entitic vol]Ordered By: Anette Stout on 35-24-6898KZO (RBC) [Entitic vol]85.5 mB57-460MbtdygoooMckitrick HospitalMonocytes Auto (Bld) [#/Vol]Ordered By: Anette Stout on 85-17-9467Qzjymaxwe (Bld) [#/Vol]0.9 10*3/uL 0.1-1.00M[facility] HospitalMonocytes/100 WBC Auto (Bld)Ordered By: Anette Stout on 17-32-1519Qmkmrnytm/100 WBC (Bld)7.5 %.[facility] HospitalNeutrophils Auto (Bld) [#/Vol]Ordered By: Anette Stout on 81-79-7956Ksvmkgtqway (Bld) [#/Vol]8.0 10*3/uL1.2-7.7FThe Bellevue HospitalNeutrophils/100 WBC Auto (Bld)Ordered By: Anette Stout on 01-07-2023 Neutrophils/100 WBC (Bld)65.7 %.[facility] HospitalNo Panel InformationOrdered By: Anette Stout on 01-07-2023> 60 mL/MinMckitrick Hospital113.92Mckitrick HospitalNucleated erythrocytes [Presence] in Blood by Automated countOrdered By: Anette Stout on 01-07-2023 Nucleated RBC Auto Ql (Bld)0.1 /100{WBC}0-0.5FThe [facility] Hospital Platelet mean volume Auto (Bld) [Entitic vol]Ordered By: Anette Stout on 13-86-3085Qdribola mean volume (Bld) [Entitic vol]8.6 fL6.3-10.7FThe Bellevue HospitalPlatelets Auto (Bld) [#/Vol]Ordered By: Anette Stout on 51-66-3468Axxiksubx (Bld) [#/Vol]222 10*3/rL337-746CrsiujwxcMckitrick HospitalRBC Auto (Bld) [#/Vol]Ordered By: Anette Stout on 11-13-7253DMP (Bld) [#/Vol]4.85 10*6/uL4.10-5.10Galion Hospitalerum or plasma anion gap determinationOrdered By: Anette Stout on 62-84-4644Oyxls gap [Moles/Vol]N/AFAvita Health System Bucyrus Hospitalerum or plasma calcium measurement (mass/volume)Ordered By: Anette Stout on 02-65-9027Knttpvu [Mass/Vol] 8.5 mg/dL8.2-10.2FAvita Health System Bucyrus Hospitalerum or plasma chloride measurement (moles/volume)Ordered By: Anette Stout on 41-04-2955Zjnekbpf [Moles/Vol]103 mmol/K25-057JzavowqpeGalion Hospitalerum or plasma creatinine measurement with calculation of estimated glomerular filtrOrdered By: Anette Stout on 49-35-5180Niykqrxogf and Glomerular filtration rate.predicted panel (S/P/Bld)0.77 mg/dL0.44-1.03[facility] Hospitalerum or plasma glucose measurement (mass/volume)Ordered By: Anette Stout on 01-07-2023 Glucose [Mass/Vol]90 mg/uC76-961JybvsvzisGalion Hospitalerum or plasma potassium measurement (moles/volume)Ordered By: Eliana Bautista on 01-07-2023 Potassium [Moles/Vol]3.2 mmol/L3.5-5.1FAvita Health System Bucyrus Hospitalerum or plasma sodium measurement (moles/volume)Ordered By: Anette Stout on 01-07-2023 Sodium [Moles/Vol]134 mmol/J071-941DhjoprbdkGalion Hospitalerum or plasma total carbon dioxide measurement (moles/volume)Ordered By: Anette Stout on 92-62-0472XK3 [Moles/Vol]23.4 mmol/L22.0-30.0[facility] Serum or plasma urea nitrogen measurement (mass/volume)Ordered By: Anette Stout on 50-78-1460Ebaw nitrogen [Mass/Vol]8 mg/dL9-23Mckitrick HospitalWBC Auto (Bld) [#/Vol]Ordered By: Anette Stout on 58-00-3634BFA (Bld) [#/Vol]12.1 10*3/uL4.5-13.5FThe Bellevue HospitalAmphetamine Screen Ql (U)Ordered By: Anette Stout on 87-05-9156Qpsgrgsqcryp Ql (U)NegativeNegative [facility] HospitalAutomated erythrocytes count in urine sediment (number/area)Ordered By: Rd Brown on 23-30-3626OWR Auto (Urine sed) [#/Area] None seen [HPF]0-4FThe Bellevue HospitalAutomated leukocytes count in urine sediment (number/area)Ordered By: Rd Brown on 93-10-2990OOZ Auto (Urine sed) [#/Area]20-49 [HPF]0-4FThe Bellevue HospitalAutomated urine hyaline casts count (number/volume)Ordered By: Rd Brown on 01-06-2023 Hyaline casts Auto (U) [#/Vol]None seen [LPF]0-1FThe Bellevue HospitalBarbiturates [Presence] in UrineOrdered By: Anette Stout on 01-06-2023 Barbiturates Ql (U)NegativeNegativeMckitrick HospitalBasophils Auto (Bld) [#/Vol]Ordered By: Rd Brown on 27-56-0986Hpjzayquj (Bld) [#/Vol] 0.0 10*3/uL0.0-0.1FThe Bellevue HospitalBasophils/100 WBC Auto (Bld) Ordered By: Rd Brown on 38-66-4742Mjvxweiql/100 WBC (Bld)0.3 %.[facility] HospitalBenzodiazepines [Presence] in UrineOrdered By: Anette Stout on 18-18-2247Ecxwciijpeswiva Ql (U)NegativeNegativeMckitrick HospitalBilirubin Test strip Ql (U)Ordered By: Rd Borwn on 01-06-2023 Bilirubin Ql (U)NegativeNegativeMckitrick HospitalBody fluid albumin measurement (mass/volume)Ordered By: Rd Brown on 95-71-3428Osdtoxu (Body fld) [Mass/Vol]4.9 g/dL3.2-5.5FThe [facility] Hospital Cannabinoids [Presence] in Urine by Screen methodOrdered By: Anette Stout on 85-71-4003Bcuzlqojnavc Screen Ql (U)PositiveNegativeMckitrick HospitalCasts typing in urine sediment by light microscopyOrdered By: Rd Brown on 47-41-5335Iwoxt LM Nom (Urine sed)None seen [LPF]None SeenMckitrick HospitalColor Auto (U)Ordered By: Rd Bronw on 32-37-0613Nhfka (U) YellowYellowMckitrick HospitalEosinophils Auto (Bld) [#/Vol] Ordered By: Rd Brown on 58-86-8231Fbngcupgqlt (Bld) [#/Vol]0.4 10*3/uL 0.0-0.7FThe Bellevue HospitalEosinophils/100 WBC Auto (Bld)Ordered By: dR Brown on 87-07-0411Pvxoridqmoh/100 WBC (Bld)2.3 %.[facility] HospitalErythrocyte distribution width Auto (RBC) [Ratio]Ordered By: Rd Brown on 22-20-9366Rasbvbotyav distribution width (RBC) [Ratio]13.5 % 11.9-15.3FThe Bellevue HospitalEstimated glomerular filtration rate (GFR) non- AmericanOrdered By: Rd Brown on 18-36-2143BPL/1.73 sq M.predicted among non-blacks MDRD (S/P/Bld) [Vol rate/Area]> 60 mL/MinMckitrick HospitalGlobulin Calc (S) [Mass/Vol]Ordered By: Rd Brown on 05-65-9177Qgcchlti (S) [Mass/Vol]2.9 g/dLMckitrick HospitalHCG ( test) IA.rapid Ql (U)Ordered By: Rd Brown on 49-15-3702VIZ ( test) Ql (U)NegativeMckitrick HospitalHematocrit Auto (Bld) [Volume fraction]Ordered By: Rd Brown on 55-40-6620Aqxckbugrx (Bld) [Volume fraction]48.3 %36.0-46.0M[facility] HospitalHemoglobin [Mass/volume] in BloodOrdered By: Rd Brown on 96-79-8992Orapatnjlm (Bld) [Mass/Vol]16.2 g/dL12.0-16.0M[facility] HospitalKetones Auto test strip (U) [Mass/Vol]Ordered By: Rd Brown on 46-86-6113Kgoxvdg (U) [Mass/Vol] 4+NegativeMckitrick HospitalLeukocytes [#/volume] corrected for nucleated erythrocytes in Blood by Automated counOrdered By: Rd Brown on 44-30-7745FDD corrected for nucl RBC Auto (Bld) [#/Vol]17.7 10*3/uL4.5-13.5 [facility] HospitalLymphocytes Auto (Bld) [#/Vol]Ordered By: Rd Brown on 74-30-2316Talsdiuxjgs (Bld) [#/Vol]3.5 10*3/uL1.20-4.8[facility] HospitalLymphocytes/100 WBC Auto (Bld)Ordered By: Rd Brown on 46-53-5793Icsdwptrhhq/100 WBC (Bld)19.9 %.[facility] Auto (RBC) [Entitic mass]Ordered By: Rd Brown on 94-81-7910QVT (RBC) [Entitic mass]28.7 pg25.0-35.0M[facility] HospitalMCHC Auto (RBC) [Mass/Vol]Ordered By: Rd Brown on 41-62-4353RQOR (RBC) [Mass/Vol]33.6 g/dL 31.0-37.0M[facility] HospitalMCV Auto (RBC) [Entitic vol]Ordered By: Rd Brown on 22-75-1920HEI (RBC) [Entitic vol]85.4 uH51-270OplkogfgxMckitrick HospitalMonocyte distribution width [Entitic volume] in Blood by AutomatedOrdered By: Rd Brown on 37-31-1932Mkwfrvvj distribution width Auto (Bld) [Entitic vol]15.43 %0.00-20.00[facility] HospitalMonocytes Auto (Bld) [#/Vol]Ordered By: Rd Brown on 97-85-0737Zyapxovms (Bld) [#/Vol] 1.3 10*3/uL0.1-1.00[facility] HospitalMonocytes/100 WBC Auto (Bld) Ordered By: Rd Brown on 72-37-3179Cyclbsitc/100 WBC (Bld)7.4 %.[facility]rick HospitalNeutrophils Auto (Bld) [#/Vol]Ordered By: Rd Brown on 28-28-3975Oymozrzomqa (Bld) [#/Vol]12.4 10*3/uL1.2-7.7FThe Bellevue HospitalNeutrophils/100 WBC Auto (Bld)Ordered By: Rd Brown on 55-53-1450Nssbfktvwjb/100 WBC (Bld)70.1 %.[facility] Nitrite Test strip Ql (U)Ordered By: Rd Brown on 10-74-9009Ramtzkk Ql (U) NegativeNegativeMckitrick HospitalNo Panel InformationOrdered By: Anette Stout on 01-59-4671LlpapvtsSjejwfbzRhgppjrgiFayette County Memorial HospitalNo Panel InformationOrdered By: Rd Brown on 01-06-2023> 60 mL/MinMckitrick Hospital31.0 U/I77-00FamlptyloMckitrick Hospital102.00 [facility] HospitalNucleated erythrocytes [Presence] in Blood by Automated countOrdered By: Rd Brown on 01-59-4618Trhfzjhhg RBC Auto Ql (Bld) 0.1 /100{WBC}0-0.5FThe Bellevue HospitalPhencyclidine Screen Ql (U) Ordered By: Anette Stout on 97-80-8776Hdvkanknvpnba Ql (U)NegativeNegative [facility] HospitalPlatelet mean volume Auto (Bld) [Entitic vol] Ordered By: Rd Brown on 21-61-8036Nvsejspt mean volume (Bld) [Entitic vol] 8.5 fL6.3-10.7FThe Bellevue HospitalPlatelets Auto (Bld) [#/Vol] Ordered By: Rd Brown on 24-53-5325Tporxtein (Bld) [#/Vol]296 10*3/oD934-688 [facility] HospitalProtein Auto test strip (U) [Mass/Vol]Ordered By: Rd Brown on 57-32-8088Fmqfjdq (U) [Mass/Vol]100 mg/dLNegativeMckitrick HospitalProtein [Mass/volume] in Serum or PlasmaOrdered By: Rd Brown on 66-51-1946Hrhhsoe [Mass/Vol]7.8 g/dL6.1-7.9M[facility] HospitalRBC Auto (Bld) [#/Vol]Ordered By: Rd Brown on 29-98-1947WCR (Bld) [#/Vol]5.65 10*6/uL4.10-5.10[facility] Hospitalerum or plasma alanine aminotransferase measurement without P-5'-P (enzymatic activi Ordered By: Rd Brown on 23-67-7664ZPT No additional P-5'-P [Catalytic activity/Vol]20 U/X95-12AwdhaufkgGalion Hospitalerum or plasma albumin/globulin mass ratioOrdered By: Rd Brown on 01-06-2023 Albumin/Globulin [Mass ratio]1.7 {ratio}[facility] Hospitalerum or plasma alkaline phosphatase measurement (enzymatic activity/volume)Ordered By: Rd Brown on 38-46-3437GCL [Catalytic activity/Vol]66 U/Q60-72XabinitftGalion Hospitalerum or plasma anion gap determinationOrdered By: Rd Brown on 95-85-5640Xorgl gap [Moles/Vol]19.4 mmol/L6.0-15.0[facility] Hospitalerum or plasma aspartate aminotransferase measurement (enzymatic activity/volume)Ordered By: Rd Brown on 10-18-4438FYR [Catalytic activity/Vol]20 U/I18-53DrcthyrrqGalion Hospitalerum or plasma calcium measurement (mass/volume)Ordered By: Rd Brown on 54-13-2816Arbiihj [Mass/Vol]9.8 mg/dL8.2-10.2FAvita Health System Bucyrus Hospitalerum or plasma chloride measurement (moles/volume)Ordered By: Rd Brown on 01-06-2023 Chloride [Moles/Vol]91 mmol/I04-331GkkqsxpzsGalion Hospitalerum or plasma creatinine measurement with calculation of estimated glomerular filtr Ordered By: Rd Brown on 46-22-6590Qqjyczzbbg and Glomerular filtration rate.predicted panel (S/P/Bld)0.86 mg/dL0.44-1.03[facility] Hospitalerum or plasma glucose measurement (mass/volume)Ordered By: Rd Brown on 96-61-4248Ytphwat [Mass/Vol]80 mg/cC24-035ZxhnrqrfuMckitrick Hospital Serum or plasma potassium measurement (moles/volume)Ordered By: Rd Brown on 35-13-3303Clivcxzmc [Moles/Vol]2.7 mmol/L3.5-5.1FAvita Health System Bucyrus Hospitalerum or plasma sodium measurement (moles/volume)Ordered By: Rd Brown on 38-52-8167Ecjjue [Moles/Vol]132 mmol/G536-012IcgbtesxcGalion Hospitalerum or plasma total bilirubin measurement (mass/volume)Ordered By: Rd Brown on 54-30-1029Vzauvwjml [Mass/Vol]1.5 mg/dL0.3-1.2FAvita Health System Bucyrus Hospitalerum or plasma total carbon dioxide measurement (moles/volume) Ordered By: Rd Brown on 61-46-8996UM2 [Moles/Vol]24.3 mmol/L22.0-30.0 [facility] Hospitalerum or plasma urea nitrogen measurement (mass/volume)Ordered By: Rd Brown on 45-04-7717Gzky nitrogen [Mass/Vol]19 mg/dL9-23Galion Hospitalpecific gravity Auto test strip (U) [Rel density]Ordered By: Rd Brown on 19-86-2586Xacmvcls gravity (U) [Rel density]1.0271.001-1.030Galion Hospitalquamous epithelial cells detection in urine sediment by light microscopyOrdered By: Rd Brown on 90-48-0165Mqvashbmtd cells.squamous LM Ql (Urine sed)10-19 [HPF]0-2FThe Bellevue HospitalTroponin I.cardiac [Mass/volume] in Serum or Plasma by High sensitivity methodOrdered By: Federico Randolph on 60-21-1300Scekatas I.cardiac High sensitivity method [Mass/Vol]6 pg/mL0-15[facility] HospitalUrine bacteria detection by automated methodOrdered By: Rd Brown on 02-94-9753Eybiutkf Auto Ql (U)1+None SeenMckitrick HospitalUrine clarity by refractometry automatedOrdered By: Rd Brown on 12-43-2035Karfalj Refractometry automated (U)CloudyClearFThe Bellevue HospitalUrine cocaine detectionOrdered By: Anette Stout on 01-06-2023 Cocaine Ql (U)NegativeNegativeMckitrick HospitalUrine glucose measurement by automated test strip (mass/volume)Ordered By: Rd Brown on 21-46-3508Xrxsiqg Auto test strip (U) [Mass/Vol]Normal mg/dLNoCleveland ClinicUrine hemoglobin detection by automated test stripOrdered By: Rd Brown on 09-90-3037Ekeqwvmfsq Auto test strip Ql (U)3+Negative [facility] HospitalUrine lactic acid measurementOrdered By: Rd Brown on 27-82-4478Qdkujcg (U) [Moles/Vol]1.6 mmol/L0.5-2.2FThe Bellevue HospitalUrine leukocyte esterase detection by automated test stripOrdered By: Rd Brown on 28-93-9328Nwysrnpem esterase Auto test strip Ql (U)2+ NegativeMckitrick HospitalUrobilinogen Auto test strip (U) [Mass/Vol]Ordered By: Rd Brown on 09-02-9201Gkkedbxyjeze (U) [Mass/Vol] Normal mg/dLNoCleveland ClinicWBC Auto (Bld) [#/Vol]Ordered By: Rd Brown on 99-00-2521CKS (Bld) [#/Vol]17.7 10*3/uL4.5-13.5FThe Bellevue HospitalpH Auto test strip (U)Ordered By: Rd Brown on 90-98-6765pQ (U)6.5 [pH]5.0-9.0[facility] HospitalAlbumin [Mass/volume] in Serum or PlasmaOrdered By: Ravi Arguello on 97-70-5492Oqfesbn [Mass/Vol]5.0 g/dL3.2-5.5FThe Bellevue HospitalAutomated erythrocytes count in urine sediment (number/area)Ordered By: Ravi Arguello on 10-16-9748BUH Auto (Urine sed) [#/Area]3-4 [HPF]0-4FThe Bellevue HospitalAutomated leukocytes count in urine sediment (number/area)Ordered By: Ravi Arguello on 81-31-1726KIY Auto (Urine sed) [#/Area]50-100 [HPF]0-4FThe Bellevue HospitalAutomated urine hyaline casts count (number/volume)Ordered By: Ravi Arguello on 92-28-1779Vwslcnq casts Auto (U) [#/Vol]None seen [LPF]0-1FThe Bellevue HospitalBasophils Auto (Bld) [#/Vol]Ordered By: Ravi Arguello on 28-27-0362Aiyycbvgh (Bld) [#/Vol]0.1 10*3/uL0.0-0.1FThe Bellevue HospitalBasophils/100 WBC Auto (Bld)Ordered By: Ravi Arguello on 01-02-2023 Basophils/100 WBC (Bld)0.5 %.[facility] HospitalBilirubin Test strip Ql (U)Ordered By: Ravi Arguello on 37-54-0715Rfkvvnnrx Ql (U)Negative NegativeMckitrick HospitalCasts typing in urine sediment by light microscopyOrdered By: Ravi Arguello on 63-20-7845Ppvhy LM Nom (Urine sed)None seen [LPF]None SeenMckitrick HospitalColor Auto (U)Ordered By: Ravi Arguello on 18-66-1604Fbpbw (U)YellowYellowMckitrick Hospital Eosinophils Auto (Bld) [#/Vol]Ordered By: Ravi Arguello on 25-16-4795Lnuiykkztng (Bld) [#/Vol]0.0 10*3/uL0.0-0.7FThe Bellevue HospitalEosinophils/100 WBC Auto (Bld)Ordered By: Ravi Arguello on 84-70-7005Urwehznsjdu/100 WBC (Bld)0.0 %.[facility] HospitalErythrocyte distribution width Auto (RBC) [Ratio]Ordered By: Ravi Arguello on 29-45-9182Rgkatpngyeq distribution width (RBC) [Ratio]13.9 %11.9-15.3FThe Bellevue HospitalEstimated glomerular filtration rate (GFR) non- AmericanOrdered By: Ravi Arguello on 39-76-8200GUV/1.73 sq M.predicted among non-blacks MDRD (S/P/Bld) [Vol rate/Area]> 60 mL/MinMckitrick HospitalGlobulin Calc (S) [Mass/Vol]Ordered By: Ravi Arguello on 75-81-1104Wyedgbgv (S) [Mass/Vol]2.9 g/dL [facility] HospitalHCG ( test) IA.rapid Ql (U)Ordered By: Ravi Arguello on 59-10-2426KRM ( test) Ql (U)NegativeMckitrick HospitalHematocrit Auto (Bld) [Volume fraction]Ordered By: Ravi Arguello on 50-57-2469Lixruknveb (Bld) [Volume fraction]42.1 %36.0-46.0[facility] HospitalHemoglobin [Mass/volume] in BloodOrdered By: Ravi Arguello on 59-89-9898Jiyumvztvx (Bld) [Mass/Vol]14.0 g/dL12.0-16.0M[facility] HospitalKetones Auto test strip (U) [Mass/Vol]Ordered By: Ravi Arguello on 75-40-0195Ngmajtw (U) [Mass/Vol]3+NegativeMckitrick Hospital Leukocytes [#/volume] corrected for nucleated erythrocytes in Blood by Automated counOrdered By: Ravi Arguello on 17-79-8498JOP corrected for nucl RBC Auto (Bld) [#/Vol]14.1 10*3/uL4.5-13.5FThe Bellevue HospitalLymphocytes Auto (Bld) [#/Vol]Ordered By: Ravi Arguello on 73-02-9196Fmhjqqvdiky (Bld) [#/Vol]1.4 10*3/uL1.20-4.8[facility] HospitalLymphocytes/100 WBC Auto (Bld) Ordered By: Ravi Arguello on 20-39-8264Wopurpkannp/100 WBC (Bld)10.1 %.[facility]H Auto (RBC) [Entitic mass]Ordered By: Ravi Arguello on 33-84-4442ABJ (RBC) [Entitic mass]28.6 pg25.0-35.0M[facility] HospitalMCHC Auto (RBC) [Mass/Vol]Ordered By: Ravi Arguello on 37-57-0181HIOZ (RBC) [Mass/Vol]33.2 g/dL31.0-37.0M[facility] HospitalMCV Auto (RBC) [Entitic vol]Ordered By: Ravi Arguello on 92-48-8986UHC (RBC) [Entitic vol]86.2 rK35-235AscqeeqxpMckitrick HospitalMonocyte distribution width [Entitic volume] in Blood by AutomatedOrdered By: Ravi Arguello on 73-77-5991Rwsiibhu distribution width Auto (Bld) [Entitic vol]16.52 %0.00-20.00[facility] HospitalMonocytes Auto (Bld) [#/Vol]Ordered By: Ravi Arguello on 01-02-2023 Monocytes (Bld) [#/Vol]1.0 10*3/uL0.1-1.00[facility] Monocytes/100 WBC Auto (Bld)Ordered By: Ravi Arguello on 67-26-1391Zolupcfka/100 WBC (Bld)7.0 %.[facility] HospitalNeutrophils Auto (Bld) [#/Vol] Ordered By: Ravi Arguello on 28-23-4406Rwtgsnbjmoh (Bld) [#/Vol]11.6 10*3/uL 1.2-7.7FThe Bellevue HospitalNeutrophils/100 WBC Auto (Bld)Ordered By: Ravi Arguello on 03-04-4894Uknrbotpfcw/100 WBC (Bld)82.4 %.[facility] HospitalNitrite Test strip Ql (U)Ordered By: Ravi Arguello on 01-02-2023 Nitrite Ql (U)NegativeNegativeMckitrick HospitalNo Panel InformationOrdered By: Ravi Arguello on 01-02-2023> 60 mL/MinMckitrick Hospital29.0 U/Y98-03GzgmqwbwiMckitrick Hospital86.85[facility] HospitalNucleated erythrocytes [Presence] in Blood by Automated countOrdered By: Ravi Arguello on 80-79-8469Mjuodwbzp RBC Auto Ql (Bld)0.0 /100{WBC}0-0.5FThe Bellevue HospitalPlatelet mean volume Auto (Bld) [Entitic vol]Ordered By: Ravi Arguello on 27-85-4532Kdjxvxuo mean volume (Bld) [Entitic vol]8.4 fL6.3-10.7FThe Bellevue HospitalPlatelets Auto (Bld) [#/Vol]Ordered By: Ravi Arguello on 02-99-6954Wrjswgsqn (Bld) [#/Vol]299 10*3/uL 150-450M[facility] HospitalProtein Auto test strip (U) [Mass/Vol] Ordered By: Ravi Arguello on 61-97-6210Wsemykj (U) [Mass/Vol]100 mg/dLNegative [facility] HospitalProtein [Mass/volume] in Serum or PlasmaOrdered By: Ravi Arguello on 45-47-5434Hzyjsmr [Mass/Vol]7.9 g/dL6.1-7.9Mckitrick HospitalRBC Auto (Bld) [#/Vol]Ordered By: Ravi Arguello on 28-22-4057NQW (Bld) [#/Vol]4.89 10*6/uL4.10-5.10Galion Hospitalerum or plasma alanine aminotransferase measurement without P-5'-P (enzymatic activiOrdered By: Ravi Arguello on 85-77-4190LHC No additional P-5'-P [Catalytic activity/Vol]26 U/E47-95YpevhrxwoGalion Hospitalerum or plasma albumin/globulin mass ratioOrdered By: Ravi Arguello on 01-02-2023 Albumin/Globulin [Mass ratio]1.7 {ratio}[facility] Hospitalerum or plasma alkaline phosphatase measurement (enzymatic activity/volume)Ordered By: Ravi Arguello on 16-70-2679PLV [Catalytic activity/Vol]60 U/Q50-09QzqhusftdGalion Hospitalerum or plasma anion gap determinationOrdered By: Ravi Arguello on 83-25-4121Ljgru gap [Moles/Vol]16.4 mmol/L6.0-15.0[facility] Hospitalerum or plasma aspartate aminotransferase measurement (enzymatic activity/volume)Ordered By: Ravi Arguello on 90-34-6078LYH [Catalytic activity/Vol]32 U/Z59-80IxypkpqdhGalion Hospitalerum or plasma calcium measurement (mass/volume)Ordered By: Ravi Arguello on 59-84-2263Ofpyrtq [Mass/Vol]9.8 mg/dL8.2-10.2FAvita Health System Bucyrus Hospitalerum or plasma chloride measurement (moles/volume)Ordered By: Ravi Arguello on 01-02-2023 Chloride [Moles/Vol]106 mmol/W07-987YhuetzzzxGalion Hospitalerum or plasma creatinine measurement with calculation of estimated glomerular filtr Ordered By: Ravi Arguello on 15-33-9202Svyuxvqgmb and Glomerular filtration rate.predicted panel (S/P/Bld)1.01 mg/dL0.44-1.03[facility] Hospitalerum or plasma glucose measurement (mass/volume)Ordered By: Ravi Arguello on 03-72-1423Dswjdmk [Mass/Vol]123 mg/gD73-817NduawppyqMckitrick Hospital Serum or plasma potassium measurement (moles/volume)Ordered By: Ravi Arguello on 01-66-3592Mhgkxtbgd [Moles/Vol]3.2 mmol/L3.5-5.1FAvita Health System Bucyrus Hospitalerum or plasma sodium measurement (moles/volume)Ordered By: Ravi Arguello on 49-62-9402Rmdbkq [Moles/Vol]142 mmol/M155-489WfvgbqhseGalion Hospitalerum or plasma total bilirubin measurement (mass/volume)Ordered By: Ravi Arguello on 28-08-5864Ezpqpmhbm [Mass/Vol]0.8 mg/dL0.3-1.2FAvita Health System Bucyrus Hospitalerum or plasma total carbon dioxide measurement (moles/volume) Ordered By: Ravi Arguello on 89-81-7604OY1 [Moles/Vol]22.8 mmol/L22.0-30.0 [facility] Hospitalerum or plasma urea nitrogen measurement (mass/volume)Ordered By: Ravi Arguello on 79-27-8710Rass nitrogen [Mass/Vol]22 mg/dL9-23Galion Hospitalpecific gravity Auto test strip (U) [Rel density]Ordered By: Ravi Arguello on 09-41-9960Kydzdzln gravity (U) [Rel density]1.0361.001-1.030Galion Hospitalquamous epithelial cells detection in urine sediment by light microscopyOrdered By: Ravi Arguello on 35-90-2166Puqdtfyzoe cells.squamous LM Ql (Urine sed)Innumerable [HPF]0-2 [facility] HospitalUrine bacteria detection by automated method Ordered By: Ravi Arguello on 24-61-8682Fssbamkz Auto Ql (U)3+None SeenMckitrick HospitalUrine clarity by refractometry automatedOrdered By: Ravi Arguello on 17-23-8594Uclalvq Refractometry automated (U)TurbidClear [facility] HospitalUrine culture routineOrdered By: Ravi Arguello on 18-18-8759Mxsviufi identified Cx Nom (U)[facility] Urine glucose measurement by automated test strip (mass/volume)Ordered By: Ravi Arguello on 91-50-3595Phkstlk Auto test strip (U) [Mass/Vol]Normal mg/dL NormalMckitrick HospitalUrine hemoglobin detection by automated test stripOrdered By: Ravi Arguello on 52-52-8678Giyqkiaspt Auto test strip Ql (U)NegativeNegativeMckitrick HospitalUrine leukocyte esterase detection by automated test stripOrdered By: Ravi Arguello on 92-87-5556Wguckhmit esterase Auto test strip Ql (U)3+NegativeMckitrick Hospital Urobilinogen Auto test strip (U) [Mass/Vol]Ordered By: Ravi Arguello on 86-62-1631Evvmckvhqmyg (U) [Mass/Vol]Normal mg/dLNormalMckitrick HospitalWBC Auto (Bld) [#/Vol]Ordered By: Ravi Arguello on 29-98-8039EJB (Bld) [#/Vol]14.1 10*3/uL4.5-13.5Fire[facility] CenterpH Auto test strip (U)Ordered By: Ravi Arguello on 68-21-6723fY (U)6.0 [pH]5.0-9.0[facility] HospitalCULTURE URINEon 15-93-8926PBJJCXF URINECulture Observations: LIGHT GROWTH OF MIXED GENITAL JORI. NO POTENTIAL PATHOGENS SEEN.NormalZanesville City HospitalComment on above:Performed By: #### URCX #### [facility] [address] [place] [address] Dr. Dacia AckermanCovid-19 PCR (CVDTB)on 55-34-0389XSOA-CoV-2 (COVID-19) RNA JANAK+probe Ql (Unsp spec)Not detectedNormalNOT DETECTEDThe [facility] Comment on above:Result Comment: When diagnostic [...] for this test is supported by the [employer] of Health and Human Service's declaration that [...] longer be used).Performed By: #### CVDTBH #### [facility] [address] [place] [address] Dr. Dacia AckermanDRUG SCREEN RAPID (URINE)on 23-71-4175OKTTlewwlmuIihuoyNNFJPEXB [facility] City HospitalComment on above:Performed By: #### DRUGRPD #### [facility] [address] [place] [address] Dr. Dacia AckermanBARNegativeNormalNEGATIVEThe [facility] HospitalComment on above: Performed By: #### DRUGRPD #### [facility] [address] [place] [address] Dr. Dacia CondonPNegativeNormalNEGATIVEZanesville City HospitalComment on above: Performed By: #### DRUGRPD #### [facility] [address] [place] [address] Dr. Dacia MontanoZONegativeNormalNEGATIVEZanesville City HospitalComment on above: Performed By: #### DRUGRPD #### [facility] [address] [place] [address] Dr. Dacia MonaeCNegativeNormalNEGATIVEZanesville City HospitalComment on above: Performed By: #### DRUGRPD #### [facility] [address] [place] [address] Dr. Dacia LowryBlanchard Valley Health System Blanchard Valley HospitalComment on above: Result Comment: AMP (Amphetamine): 500ng/mL, BAR (Barbituates): 200 ng/mL, BZO (Benzodiazepines): 150 ng/mL, BUP (Buprenorphine): 10 ng/mL, MELINA (Cocaine): 150 ng/mL, mAMP (Methamphetamine): 500 ng/mL, MTD (Methadone): 200 ng/mL, OPI (Opiates): 100 ng/mL, OXY (Oxycodone): 100 ng/mL, PCP (Phencyclidine): 25 ng/mL, PPX (Propoxyphene): 300 ng/mL, THC (Cannabinoids): 50 ng/mL, TCA (Trycyclic Antidepressants): 300 ng/mLPerformed By: #### DRUGRPD #### [facility] [address] [place] [address] Dr. Dacia AckermanDRUG CUT HEADERDRUG CLASS TEST SYSTEM CUT-OFF CONCENTRATIONS ARE FOLLOWS:NormalThe [facility] HospitalCombronson methodist hospital on above:Performed By: #### DRUGRPD #### [facility] [address] [place] [address] Dr. Dacia De La CruzMPNegativeNormalNEGATIVEZanesville City HospitalCombronson methodist hospital on above: Performed By: #### DRUGRPD #### [facility] [address] [place] [address] Dr. Yilan ChangMTDNegativeNormalNEGATIVEZanesville City HospitalComment on above: Performed By: #### DRUGRPD #### [facility] [address] [address] [address] Dacia AckermanOPINegativeNormalNEGATIVEZanesville City HospitalCombronson methodist hospital on above: Performed By: #### DRUGRPD #### [facility] [address] [address] [address] Dacia AckermanOXYNegativeNormalNEGATIVEZanesville City HospitalCombronson methodist hospital on above: Performed By: #### DRUGRPD #### [facility] [address] [address] [address] Dacia AckermanPCPNegativeNormalNEGATIVEZanesville City HospitalCombronson methodist hospital on above: Performed By: #### DRUGRPD #### [facility] [address] [place] [address] Dr. Dacia AckermanPPXNegativeNormalNEGATIVEZanesville City HospitalCombronson methodist hospital on above: Performed By: #### DRUGRPD #### [facility] [address] [place] [address] Dr. Dacia AckermanTCANegativeNormalNEGATIVEZanesville City HospitalCombronson methodist hospital on above: Performed By: #### DRUGRPD #### [facility] [address] [place] [address] Dr. Dacia AckermanTHCPositiveAbnormalNEGATIVEZanesville City HospitalCombronson methodist hospital on above: Performed By: #### DRUGRPD #### [facility] [address] [place] [address] Dr. Dacia Delgado URINE PROFILEon 54-36-7599Jaiouqwht Ql (U)SMALLAbnormal NEGATIVEZanesville City HospitalCombronson methodist hospital on above:Performed By: #### PREGU, ERUR, UMICRO #### [facility] [address] [place] [address] Dr. Dacia AckermanClarity (U)CLEARNormalCLEARZanesville City HospitalCombronson methodist hospital on above: Performed By: #### PREGU, ERUR, UMICRO #### [facility] [address] [place], [place] [address] Dr. Dacia Brice (U)YELLOWNormalYELLOWZanesville City HospitalComment on above: Performed By: #### PREGU, ERUR, UMICRO #### [facility] [address] [address] [address] Dacia Kate micrscopic examination will be performed if indicated. NormalThe [facility] HospitalComment on above:Performed By: #### PREGU, ERUR, UMICRO #### [facility] [address] [address] [address] Dacia AckermanGlucose Ql (U)NegativeNormalNEGATIVEZanesville City HospitalComment on above:Performed By: #### PREGU, ERUR, UMICRO #### [facility] [address] [place] [address] Dr. Dacia AckermanHemoglobin Ql (U)NegativeNormalNEGATIVEMarietta Osteopathic Clinic on above:Performed By: #### PREGU, ERUR, UMICRO #### [facility] [address] [place] [address] Dr. Dacia AckermanKetones Ql (U)>=80AbnormalNEGATIVEZanesville City HospitalComment on above:Performed By: #### PREGU, ERUR, UMICRO #### [facility] [address] [place] [address] Dr. Dacia AckermanLEUKOCYTESTRACEAbnormalNEGATIVEZanesville City HospitalComment on above:Performed By: #### PREGU, ERUR, UMICRO #### [facility] [address] [place] [address] Dr. Dacia AckermanNitrite Ql (U)NegativeNormalNEGATIVEZanesville City HospitalComment on above:Performed By: #### PREGU, ERUR, UMICRO #### [facility] [address] [address] [address] Dacia AckermanpH (U)7.5 [pH]Normal5-9The [facility] HospitalComment on above: Performed By: #### PREGU, ERUR, UMICRO #### [facility] [address] [place] [address] Dr. Dacia AckermanProtein (U) [Mass/Vol]100 mg/dLAbnormalNEGATIVE/ TRACEThe [facility] on above:Performed By: #### PREGPAULA Cash, UMICRO #### [facility] [address] [place] [address] Dr. Dacia AckermanSPEC GRAVITY1.852Nzmrbt8.005-<=1.025[facility] on above:Performed By: #### PREGCASANDRA CashR, UMICRO #### [facility] [address] [place] [address] Dr. Dacia Lyman MICRO INDINDICATEDAultman Orrville HospitalCombronson methodist hospital on above: Performed By: #### PREGUCASANDRAR, UMICRO #### [facility] [address] [place] [address] Dr. Dacia Grey Qn (U)1.0 {Kaykay'U}/dLNormal0.2 - 1.0The [facility] on above:Performed By: #### PAULA MARTINES, UMICRO #### [facility] [address] [place] [address] Dr. Dacia Camara AND B AGon 54-60-5998WVOQMHAOEZAQLSt. Elizabeth Hospital on above:Result Comment: Negative for Flu A protein angiten. Infection due to Flu A cannot be ruled out. FluA angiten in the sample may be below the detection limit of the test.Performed By: #### INFLUAB #### [facility] [address] [place] [address] Dr. Dacia ArguelloUBNEGHSEE [facility] on above: Result Comment: Negative for Flu B protein antigen. Infection due to Flu B cannot be ruled out. FluB antigen in the sample may be below the detection limit of the test.Performed By: #### INFLUAB #### [facility] [address] [place] [address] Dr. Yilan ChangINFLUENZA A AGNegativeNormalNEGATIVE SEE COMMENTZanesville City HospitalComment on above:Performed By: #### INFLUAB #### [facility] [address] [address] [address] Dacia Wong B AGNegativeNormalNEGATIVE SEE COMMENTZanesville City HospitalComment on above:Performed By: #### INFLUAB #### [facility] [address] [address] [address] Dacia ChowdhuryGNANCY URon 51-84-0938DESEDGIED, QUALNegativeNormalNEGATIVEThe [facility] HospitalComment on above:Performed By: #### PREGU, ERUR, UMICRO #### [facility] [address] [place] [address] Dr. Dacia Hernandez MICROSCOPIC ONLYon 99-79-3535XNFIXWKJPCNRTWJNOwhpozdoYCTP SEENThe [facility] HospitalComment on above:Performed By: #### PREGU, ERUR, UMICRO #### [facility] [address] [place] [address] Dr. Dacia De Los Santos identified Cx Nom (U)INDICATEDAultman Orrville HospitalCombronson methodist hospital on above:Performed By: #### PREGU, ERUR, UMICRO #### [facility] [address] [place] [address] Dr. Dacia AckermanCASTREX SEENNormalNONE SEENZanesville City HospitalCombronson methodist hospital on above:Performed By: #### PREGU, ERUR, UMICRO #### [facility] [address] [address] [address] Dacia Poole LM Nom (Urine sed)NONE SEENNormalNONE SEENZanesville City HospitalComment on above:Performed By: #### PREGU, ERUR, UMICRO #### [facility] [address] [place] [address] Dr. Pederson ChangEkierrathelial cells LM Ql (Urine sed)MANYAbnormalNONE SEEN /RAREThe [facility] HospitalComment on above:Performed By: #### PREGU, ERUR, UMICRO #### [facility] [address] [place], [place] [address] Dr. Dacia AckermanMUCOUSSMALLAbnormalNONE SEENZanesville City HospitalComment on above:Performed By: #### PAULA MARTINES UMICRO #### [facility] [address] [place], [place] [address] Dr. Dacia AckermanRBCNONE SEENAbnormal0-2The [facility] HospitalComment on above: Performed By: #### PAULA MARTINES UMICRO #### [facility] [address] [place], [place] [address] Dr. Pederson ChangWBC5-10AbnormalNONE SEENThe [facility] HospitalComment on above: Performed By: #### PAULA MARTINES UMICЕЛЕНА #### [facility] [address] [place], [place] [address] Dr. Dacia AckermanXR CHEST 1 Von 17-70-5251PW CHEST 1 VEXAM: XR CHEST 1 V [...] Electronically authenticated by: KIA ARVIZU Date: 2023-01-01 13:00[facility] HospitalAutomated erythrocytes count in urine sediment (number/area) Ordered By: Federico Randolph on 13-04-0776PPO Auto (Urine sed) [#/Area]0-1 [HPF] 0-4FThe Bellevue HospitalAutomated leukocytes count in urine sediment (number/area)Ordered By: Federico Randolph on 61-33-7806XTP Auto (Urine sed) [#/Area]20-49 [HPF]0-4FThe Bellevue HospitalBacteria identified Cx Nom (U)Ordered By: Federico Randolph on 57-20-6725Wztsr culture routine Staphylococcus epidermidisMckitrick HospitalBilirubin Test strip Ql (U)Ordered By: Federico Randolph on 53-46-5072Akhuoxkwv Ql (U)NegativeNegative [facility] HospitalCOVID-19 SOFIAOrdered By: Federico Randolph on 68-10-4965BANB-CoV+SARS-CoV-2 (COVID-19) Ag IA.rapid Ql (Resp)NegativeNegative [facility] HospitalCasts typing in urine sediment by light microscopyOrdered By: Federico Randolph on 87-46-6981Qoacr LM Nom (Urine sed)None seen [LPF]None SeenMckitrick HospitalColor Auto (U)Ordered By: Federico Randolph on 20-39-4211Qhbqe (U)YellowYellowMckitrick HospitalHCG ( test) IA.rapid Ql (U)Ordered By: Federico Randolph on 98-01-9700YHV ( test) Ql (U)NegativeMckitrick Hospital Influenza virus A and B antigen detection by immunoassayOrdered By: Federico Randolph on 91-56-2743TQRHN+FLUBV Ag IA Ql (Unsp spec)[facility] HospitalKetones Auto test strip (U) [Mass/Vol]Ordered By: Federico Randolph on 25-75-6775Dzymbay (U) [Mass/Vol]3+NegativeMckitrick Hospital Nitrite Test strip Ql (U)Ordered By: Federico Randolph on 82-79-4981Eejijym Ql (U)NegativeNegFayette County Memorial HospitalNo Panel InformationOrdered By: Federico Randolph on 36-99-5090Srbi seen [LPF]0-8[facility] HospitalProtein Auto test strip (U) [Mass/Vol]Ordered By: Federico Randolph on 66-89-2696Apayaav (U) [Mass/Vol]100 mg/dLNegProMedica Defiance Regional Hospitalpecific gravity Auto test strip (U) [Rel density]Ordered By: Federico Randolph on 17-59-6107Zkiliixs gravity (U) [Rel density]1.0261.001-1.030 [facility] Hospitalquamous epithelial cells detection in urine sediment by light microscopyOrdered By: Federico Randolph on 97-32-3528Kpvarfahnj cells.squamous LM Ql (Urine sed)Innumerable [HPF]0-2FThe Bellevue HospitalUrine bacteria detection by automated methodOrdered By: Federico Randolph on 11-00-2561Qiedmokx Auto Ql (U)3+None SeenMckitrick Hospital Urine clarity by refractometry automatedOrdered By: Federico Randolph on 23-82-3285Oqtoqwc Refractometry automated (U)TurbidCleSelect Medical Specialty Hospital - Cleveland-FairhillUrine glucose measurement by automated test strip (mass/volume) Ordered By: Federico Randolph on 48-57-6654Wrddbas Auto test strip (U) [Mass/Vol] Normal mg/dLNormDayton Children's HospitalUrine hemoglobin detection by automated test stripOrdered By: Federico Randolph on 61-80-0845Scsoavdvrf Auto test strip Ql (U)NegativeNegFayette County Memorial HospitalUrine leukocyte esterase detection by automated test stripOrdered By: Federico Randolph on 07-96-4556Zfsgbpyht esterase Auto test strip Ql (U)2+NegativeMckitrick HospitalUrobilinogen Auto test strip (U) [Mass/Vol]Ordered By: Federico Randolph on 88-80-7799Lfnjkzfjzwnz (U) [Mass/Vol]Normal mg/dLNoTriHealth Good Samaritan HospitalpH Auto test strip (U)Ordered By: Federico Randolph on 64-34-5952iO (U)[pH]5.0-9.0[facility] Amphetamine Screen Ql (U)Ordered By: Corey Newberry on 86-87-2621Uchqjupjarey Ql (U)NegativeNegativeMckitrick HospitalBarbiturates [Presence] in UrineOrdered By: Corey Newberry on 59-20-6945Dxklsrcuysxm Ql (U)NegativeNegative [facility] HospitalBasophils Auto (Bld) [#/Vol]Ordered By: Corey Newberry on 79-86-4047Wopftwoau (Bld) [#/Vol]0.0 10*3/uL0.0-0.1FThe Bellevue HospitalBasophils/100 WBC Auto (Bld)Ordered By: Corey Newberry on 53-47-2520Adrnbxdip/100 WBC (Bld)0.3 %.[facility] Benzodiazepines [Presence] in UrineOrdered By: Corey Newberry on 11-09-2022 Benzodiazepines Ql (U)NegativeNegativeMckitrick HospitalBilirubin Test strip Ql (U)Ordered By: Corey Newberry on 42-19-5754Wurlxwozd Ql (U) NegativeNegFayette County Memorial HospitalBody fluid albumin measurement (mass/volume)Ordered By: Corey Newberry on 04-99-3751Xpihayn (Body fld) [Mass/Vol]4.2 g/dL3.2-5.5FThe Bellevue HospitalCannabinoids [Presence] in Urine by Screen methodOrdered By: Corey Newberry on 11-09-2022 Cannabinoids Screen Ql (U)PositiveNegativeMckitrick HospitalColor Auto (U)Ordered By: Corey Newberry on 02-89-9556Otvyk (U)YellowYellowMckitrick HospitalEosinophils Auto (Bld) [#/Vol]Ordered By: Corey Newberry on 10-73-0883Trcvforhjkv (Bld) [#/Vol]0.1 10*3/uL0.0-0.7FThe Bellevue HospitalEosinophils/100 WBC Auto (Bld)Ordered By: Corey Newberry on 60-51-7076Xvovpghyqjf/100 WBC (Bld)0.8 %.[facility] Erythrocyte distribution width Auto (RBC) [Ratio]Ordered By: Corey Newberry on 72-30-5384Vrdwahpnmgy distribution width (RBC) [Ratio]13.8 %11.9-15.3FThe Bellevue HospitalEstimated glomerular filtration rate (GFR) non- AmericanOrdered By: Corey Newberry on 71-71-9603RNZ/1.73 sq M.predicted among non-blacks MDRD (S/P/Bld) [Vol rate/Area]> 60 mL/MinMckitrick HospitalGlobulin Calc (S) [Mass/Vol]Ordered By: Corey Newberry on 11-09-2022 Globulin (S) [Mass/Vol]2.4 g/dLMckitrick HospitalHCG ( test) IA.rapid Ql (U)Ordered By: Corey Newberry on 98-00-3573DNC ( test) Ql (U)NegativeMckitrick HospitalHematocrit Auto (Bld) [Volume fraction]Ordered By: Corey Newberry on 02-34-5577Parpcwugke (Bld) [Volume fraction]41.0 %36.0-46.0M[facility] HospitalHemoglobin [Mass/volume] in BloodOrdered By: Corey Newberry on 04-20-6077Kmarilvddt (Bld) [Mass/Vol]13.4 g/dL12.0-16.0M[facility] HospitalKetones Auto test strip (U) [Mass/Vol]Ordered By: Corey Newberry on 20-78-2118Dziqssb (U) [Mass/Vol]NegativeNegativeMckitrick HospitalLeukocytes [#/volume] corrected for nucleated erythrocytes in Blood by Automated counOrdered By: Corey Newberry on 85-33-2736FCC corrected for nucl RBC Auto (Bld) [#/Vol]11.7 10*3/uL4.5-13.5FThe Bellevue HospitalLymphocytes Auto (Bld) [#/Vol] Ordered By: Corey Newberry on 37-49-2266Nfdyrwmzjgn (Bld) [#/Vol]1.4 10*3/uL 1.20-4.8M[facility]rick HospitalLymphocytes/100 WBC Auto (Bld)Ordered By: Corey Newberry on 49-07-4898Kkpfkgbawuu/100 WBC (Bld)12.1 %.[facility] Auto (RBC) [Entitic mass]Ordered By: Corey Newberry on 18-07-1371LNW (RBC) [Entitic mass]28.1 pg25.0-35.0Mckitrick HospitalMCHC Auto (RBC) [Mass/Vol]Ordered By: Corey Newberry on 68-49-8446ZOWZ (RBC) [Mass/Vol]32.8 g/dL31.0-37.0M[facility]rick HospitalMCV Auto (RBC) [Entitic vol]Ordered By: Corey Newberry on 87-16-5072SAD (RBC) [Entitic vol]85.7 sM14-554TsdymvcykMckitrick HospitalMonocyte distribution width [Entitic volume] in Blood by AutomatedOrdered By: Corey Newberry on 11-09-2022 Monocyte distribution width Auto (Bld) [Entitic vol]16.08 %0.00-20.00M[facility] HospitalMonocytes Auto (Bld) [#/Vol]Ordered By: Corey Newberry on 86-38-3215Glgnihgej (Bld) [#/Vol]0.5 10*3/uL0.1-1.00[facility] HospitalMonocytes/100 WBC Auto (Bld)Ordered By: Corey Newberry on 11-09-2022 Monocytes/100 WBC (Bld)4.7 %.[facility] HospitalNeutrophils Auto (Bld) [#/Vol]Ordered By: Corey Newberry on 25-85-7989Ldwluamuphu (Bld) [#/Vol] 9.6 10*3/uL1.2-7.7FThe Bellevue HospitalNeutrophils/100 WBC Auto (Bld)Ordered By: Corey Newberry on 52-95-8745Gwkwngtgqpi/100 WBC (Bld)82.1 %. [facility] HospitalNitrite Test strip Ql (U)Ordered By: Corey Newberry on 32-90-4477Mqejrfi Ql (U)NegativeNegativeMckitrick HospitalNo Panel InformationOrdered By: Corey Newberry on 64-63-2978Mdxjgfdg NegativeMckitrick Hospital> 60 mL/MinMckitrick Hospital118.86M[facility]itrick HospitalNucleated erythrocytes [Presence] in Blood by Automated countOrdered By: Corey Newberry on 29-32-8938Wbmuzynre RBC Auto Ql (Bld)0.1 /100{WBC}0-0.5FThe Bellevue HospitalPhencyclidine Screen Ql (U)Ordered By: Corey Newberry on 44-38-4516Dgwxeodqpbkcx Ql (U) NegativeNegFayette County Memorial HospitalPlatelet mean volume Auto (Bld) [Entitic vol]Ordered By: Corey Newberry on 40-51-5525Uculaxzx mean volume (Bld) [Entitic vol]8.5 fL6.3-10.7FThe Bellevue HospitalPlatelets Auto (Bld) [#/Vol]Ordered By: Corey Newberry on 92-75-9484Wmkjeejjb (Bld) [#/Vol]274 10*3/lS697-745VjqclwoscMckitrick HospitalProtein Auto test strip (U) [Mass/Vol]Ordered By: Corey Newberry on 72-86-0797Pazxntp (U) [Mass/Vol]Negative NegativeMckitrick HospitalProtein [Mass/volume] in Serum or PlasmaOrdered By: Corey Newberry on 47-17-3972Fewsnxe [Mass/Vol]6.6 g/dL6.1-7.9 [facility] HospitalRBC Auto (Bld) [#/Vol]Ordered By: Corey Newberry on 50-68-8030ELK (Bld) [#/Vol]4.78 10*6/uL4.10-5.10Galion Hospitalerum or plasma alanine aminotransferase measurement without P-5'-P (enzymatic activiOrdered By: Corey Newberry on 56-42-3585DJC No additional P-5'-P [Catalytic activity/Vol]67 U/V49-30OsbufgnxtGalion Hospitalerum or plasma albumin/globulin mass ratioOrdered By: Corey Newberry on 49-82-1293Dsgujnk/Globulin [Mass ratio]1.8 {ratio}[facility] Hospitalerum or plasma alkaline phosphatase measurement (enzymatic activity/volume)Ordered By: Corey Newberry on 85-94-4154DJN [Catalytic activity/Vol]59 U/R19-84JwidssnjmGalion Hospitalerum or plasma anion gap determinationOrdered By: Corey Newberry on 44-78-3180Adxlw gap [Moles/Vol] 19.7 mmol/L6.0-15.0[facility] Hospitalerum or plasma aspartate aminotransferase measurement (enzymatic activity/volume)Ordered By: Corey Newberry on 35-58-0718MRQ [Catalytic activity/Vol]48 U/E58-99VplpwfpevGalion Hospitalerum or plasma calcium measurement (mass/volume)Ordered By: Corey Newberry on 00-66-6196Oribjap [Mass/Vol]9.6 mg/dL8.2-10.2FAvita Health System Bucyrus Hospitalerum or plasma chloride measurement (moles/volume) Ordered By: Corey Newberry on 91-11-5576Feaybexq [Moles/Vol]98 mmol/L95-114 [facility] Hospitalerum or plasma creatinine measurement with calculation of estimated glomerular filtrOrdered By: Corey Newberry on 38-42-7061Yvrihcscng and Glomerular filtration rate.predicted panel (S/P/Bld) 0.76 mg/dL0.44-1.03[facility] Hospitalerum or plasma glucose measurement (mass/volume)Ordered By: Corey Newberry on 88-22-8882Ymyglhz [Mass/Vol]110 mg/sG66-891GupdtbfnqGalion Hospitalerum or plasma potassium measurement (moles/volume)Ordered By: Corey Newberry on 11-09-2022 Potassium [Moles/Vol]3.4 mmol/L3.5-5.1FAvita Health System Bucyrus Hospitalerum or plasma sodium measurement (moles/volume)Ordered By: Corey Newberry on 11-09-2022 Sodium [Moles/Vol]137 mmol/I007-175YoejddrskGalion Hospitalerum or plasma total bilirubin measurement (mass/volume)Ordered By: Corey Newberry on 50-72-1571Xvhglbeer [Mass/Vol]0.5 mg/dL0.3-1.2FThe [facility] Hospital Serum or plasma total carbon dioxide measurement (moles/volume)Ordered By: Corey Newberry on 64-73-2050QJ3 [Moles/Vol]22.7 mmol/L22.0-30.0[facility] Hospitalerum or plasma urea nitrogen measurement (mass/volume) Ordered By: Corey Newberry on 95-06-4232Ugmz nitrogen [Mass/Vol]3 mg/dL9-23 [facility] Hospitalpecific gravity Auto test strip (U) [Rel density]Ordered By: Corey Newberry on 39-69-4818Mpfhdeta gravity (U) [Rel density]1.0091.001-1.030[facility] HospitalUrine clarity by refractometry automatedOrdered By: Corey Newberry on 59-87-5894Ctwoqam Refractometry automated (U)ClearCleSelect Medical Specialty Hospital - Cleveland-FairhillUrine cocaine detectionOrdered By: Corey Newberry on 46-20-7799Aritbsc Ql (U)Negative NegativeMckitrick HospitalUrine glucose measurement by automated test strip (mass/volume)Ordered By: Corey Newberry on 07-85-8430Kusjxdm Auto test strip (U) [Mass/Vol]Normal mg/dLNormalMckitrick [facility] Urine hemoglobin detection by automated test stripOrdered By: Corey Newberry on 68-68-3599Vjsllpwknr Auto test strip Ql (U)NegativeNegativeMckitrick HospitalUrine leukocyte esterase detection by automated test stripOrdered By: Corey Newberry on 45-74-0410Gjfsqwdao esterase Auto test strip Ql (U) NegativeNegativeMckitrick HospitalUrobilinogen Auto test strip (U) [Mass/Vol]Ordered By: Corey Newberry on 61-69-0390Ylblbkntupqk (U) [Mass/Vol]Normal mg/dLNormalMckitrick HospitalWBC Auto (Bld) [#/Vol]Ordered By: Corey Newberry on 56-02-8357XJH (Bld) [#/Vol]11.7 10*3/uL 4.5-13.5FThe Bellevue HospitalpH Auto test strip (U)Ordered By: Corey Newberry on 62-79-2403yI (U)[pH]5.0-9.0[facility] Albumin [Mass/volume] in Serum or PlasmaOrdered By: Art Bianchi on 11-07-2022 Albumin [Mass/Vol]4.6 g/dL3.2-5.5FThe Bellevue HospitalAutomated erythrocytes count in urine sediment (number/area)Ordered By: Art Bianchi on 73-66-3779EWU Auto (Urine sed) [#/Area]0-1 [HPF]0-4FThe Bellevue HospitalAutomated leukocytes count in urine sediment (number/area)Ordered By: Art Bianchi on 92-12-8697AGQ Auto (Urine sed) [#/Area]3-4 [HPF]0-4FThe Bellevue HospitalBasophils Auto (Bld) [#/Vol]Ordered By: Art Bianchi on 71-20-5536Qngzhxjtf (Bld) [#/Vol]0.1 10*3/uL0.0-0.1FThe Bellevue HospitalBasophils/100 WBC Auto (Bld)Ordered By: Art Bianchi on 11-07-2022 Basophils/100 WBC (Bld)1.0 %.[facility] HospitalBilirubin Test strip Ql (U)Ordered By: rAt Bianchi on 73-45-7060Bijltnuqh Ql (U)Negative NegativeMckitrick HospitalColor Auto (U)Ordered By: Art Bianchi on 87-45-6198Uktaq (U)YellowYellowMckitrick HospitalEosinophils Auto (Bld) [#/Vol]Ordered By: Art Bianchi on 66-40-2469Dmlcbbuycpg (Bld) [#/Vol] 0.1 10*3/uL0.0-0.7FThe Bellevue HospitalEosinophils/100 WBC Auto (Bld)Ordered By: Art Bianchi on 61-67-4101Trtuqyaieoq/100 WBC (Bld)1.2 %. [facility] HospitalErythrocyte distribution width Auto (RBC) [Ratio]Ordered By: Art Bianchi on 66-84-5981Dddwigkzyvk distribution width (RBC) [Ratio]14.0 %11.9-15.3FThe Bellevue HospitalEstimated glomerular filtration rate (GFR) non- AmericanOrdered By: Art Bianchi on 11-07-2022 GFR/1.73 sq M.predicted among non-blacks MDRD (S/P/Bld) [Vol rate/Area]> 60 mL/MinMckitrick HospitalGlobulin Calc (S) [Mass/Vol]Ordered By: Art Bianchi on 52-52-7472Agowuebg (S) [Mass/Vol]2.7 g/dLMckitrick HospitalHCG ( test) IA.rapid Ql (U)Ordered By: Art Bianchi on 28-01-3534FVM ( test) Ql (U)NegativeMckitrick Hospital Hematocrit Auto (Bld) [Volume fraction]Ordered By: Art Bianchi on 11-07-2022 Hematocrit (Bld) [Volume fraction]43.2 %36.0-46.0[facility] HospitalHemoglobin [Mass/volume] in BloodOrdered By: Art Bianchi on 11-07-2022 Hemoglobin (Bld) [Mass/Vol]14.8 g/dL12.0-16.0[facility] Ketones Auto test strip (U) [Mass/Vol]Ordered By: Art Bianchi on 11-07-2022 Ketones (U) [Mass/Vol]1+NegativeMckitrick HospitalLeukocytes [#/volume] corrected for nucleated erythrocytes in Blood by Automated coun Ordered By: Art Bianchi on 59-29-1551ZWB corrected for nucl RBC Auto (Bld) [#/Vol]10.3 10*3/uL4.5-13.5FThe Bellevue HospitalLymphocytes Auto (Bld) [#/Vol]Ordered By: Art Bianchi on 13-45-0257Hjefkwbmjqq (Bld) [#/Vol]2.1 10*3/uL1.20-4.8[facility] HospitalLymphocytes/100 WBC Auto (Bld) Ordered By: Art Bianchi on 16-27-9936Judqgxtvcsh/100 WBC (Bld)20.8 %.[facility] Auto (RBC) [Entitic mass]Ordered By: Art Bianchi on 42-75-9104BUG (RBC) [Entitic mass]28.8 pg25.0-35.0[facility] HospitalMCHC Auto (RBC) [Mass/Vol]Ordered By: Art Bianchi on 49-63-5427PDWN (RBC) [Mass/Vol]34.3 g/dL31.0-37.0M[facility] HospitalMCV Auto (RBC) [Entitic vol]Ordered By: Art Bianchi on 32-60-0957FAQ (RBC) [Entitic vol]84.1 fL 78-102M[facility]rick HospitalMonocyte distribution width [Entitic volume] in Blood by AutomatedOrdered By: Art Bianchi on 02-24-7922Qijezprz distribution width Auto (Bld) [Entitic vol]17.07 %0.00-20.00[facility] HospitalMonocytes Auto (Bld) [#/Vol]Ordered By: Art Bianchi on 11-07-2022 Monocytes (Bld) [#/Vol]0.8 10*3/uL0.1-1.00[facility] Monocytes/100 WBC Auto (Bld)Ordered By: Art Bianchi on 39-26-6938Wczwhcuma/100 WBC (Bld)8.1 %.[facility] HospitalNeutrophils Auto (Bld) [#/Vol] Ordered By: Art Bianchi on 76-03-6249Wqlulzzfzii (Bld) [#/Vol]7.1 10*3/uL1.2-7.7 [facility] HospitalNeutrophils/100 WBC Auto (Bld)Ordered By: Art Bianchi on 36-62-6273Igypbnrbncs/100 WBC (Bld)68.9 %.[facility] HospitalNitrite Test strip Ql (U)Ordered By: Art Bianchi on 20-77-7126Rfyuqgk Ql (U)NegativeNegativeMckitrick HospitalNo Panel InformationOrdered By: Art Bianchi on 03-39-44240-8 [LPF]0-8[facility]> 60 mL/MinMckitrick Hospital43.0 U/U27-91OmkjdgpioMckitrick Hospital104.35[facility] HospitalNucleated erythrocytes [Presence] in Blood by Automated countOrdered By: Art Bianchi on 95-55-9370Cygoflvnf RBC Auto Ql (Bld)0.3 /100{WBC}0-0.5FThe Bellevue HospitalPlatelet mean volume Auto (Bld) [Entitic vol]Ordered By: Art Bianchi on 76-19-1445Yskfdyxr mean volume (Bld) [Entitic vol]8.4 fL6.3-10.7FThe [facility] Hospital Platelets Auto (Bld) [#/Vol]Ordered By: Art Bianchi on 05-19-0552Efvhduszu (Bld) [#/Vol]308 10*3/iY377-819YoevpxthaMckitrick HospitalProtein Auto test strip (U) [Mass/Vol]Ordered By: Art Bianchi on 78-33-8213Tvpesol (U) [Mass/Vol] Trace mg/dLNegFayette County Memorial HospitalProtein [Mass/volume] in Serum or PlasmaOrdered By: Art Bianchi on 94-13-6864Jvfdsuo [Mass/Vol]7.3 g/dL 6.1-7.9M[facility] HospitalRBC Auto (Bld) [#/Vol]Ordered By: Art Bianchi on 42-66-7419ZPB (Bld) [#/Vol]5.14 10*6/uL4.10-5.10[facility] Hospitalerum or plasma alanine aminotransferase measurement without P-5'-P (enzymatic activiOrdered By: Art Bianchi on 84-62-7334TIC No additional P-5'-P [Catalytic activity/Vol]24 U/W28-69ErystdzosGalion Hospitalerum or plasma albumin/globulin mass ratioOrdered By: Art Bianchi on 11-07-2022 Albumin/Globulin [Mass ratio]1.7 {ratio}[facility] Hospitalerum or plasma alkaline phosphatase measurement (enzymatic activity/volume)Ordered By: Art Bianchi on 79-53-3456KXA [Catalytic activity/Vol]60 U/Q42-85TkkpjvwamGalion Hospitalerum or plasma anion gap determinationOrdered By: Art Bianchi on 11-19-5199Xxvlg gap [Moles/Vol]12.2 mmol/L6.0-15.0[facility] Hospitalerum or plasma aspartate aminotransferase measurement (enzymatic activity/volume)Ordered By: Art Bianchi on 27-37-5855RTP [Catalytic activity/Vol]25 U/Z57-62KywrzkqsjGalion Hospitalerum or plasma calcium measurement (mass/volume)Ordered By: Art Bianchi on 68-41-4354Bueueim [Mass/Vol] 9.6 mg/dL8.2-10.2FAvita Health System Bucyrus Hospitalerum or plasma chloride measurement (moles/volume)Ordered By: Art Bianchi on 90-15-0104Wqycktdz [Moles/Vol]98 mmol/E27-955TnomkghwlGalion Hospitalerum or plasma creatinine measurement with calculation of estimated glomerular filtrOrdered By: Art Bianchi on 84-65-4805Qplhdxuklf and Glomerular filtration rate.predicted panel (S/P/Bld)0.84 mg/dL0.44-1.03[facility] Hospitalerum or plasma glucose measurement (mass/volume)Ordered By: Art Bianchi on 11-07-2022 Glucose [Mass/Vol]106 mg/cC05-093WvdnfpyekGalion Hospitalerum or plasma potassium measurement (moles/volume)Ordered By: Art Bianchi on 11-07-2022 Potassium [Moles/Vol]3.2 mmol/L3.5-5.1FAvita Health System Bucyrus Hospitalerum or plasma sodium measurement (moles/volume)Ordered By: Art Bianchi on 11-07-2022 Sodium [Moles/Vol]132 mmol/O384-015QhactwsnxGalion Hospitalerum or plasma total bilirubin measurement (mass/volume)Ordered By: Art Bianchi 94-95-8450Mosahdifz [Mass/Vol]0.8 mg/dL0.3-1.2FThe [facility] Hospital Serum or plasma total carbon dioxide measurement (moles/volume)Ordered By: Art Bianchi on 01-91-4359KV1 [Moles/Vol]25.0 mmol/L22.0-30.0[facility] Hospitalerum or plasma urea nitrogen measurement (mass/volume)Ordered By: Art Bianchi on 66-97-3527Ltxz nitrogen [Mass/Vol]6 mg/dL9-23Gal[facility] Hospitalpecific gravity Auto test strip (U) [Rel density]Ordered By: Art Bianchi on 44-76-4359Ulnkktrg gravity (U) [Rel density]1.0141.001-1.030 [facility] Hospitalquamous epithelial cells detection in urine sediment by light microscopyOrdered By: Art Bianchi on 10-04-8060Cxrxsjmcqk cells.squamous LM Ql (Urine sed)5-9 [HPF]0-2FThe [facility] Hospital Urine bacteria detection by automated methodOrdered By: Art Bianchi on 45-07-2907Wujobysn Auto Ql (U)None seenNone SeenMckitrick HospitalUrine clarity by refractometry automatedOrdered By: Art Bianchi on 83-69-8930Ckkqrjb Refractometry automated (U)ClearCleSelect Medical Specialty Hospital - Cleveland-FairhillUrine glucose measurement by automated test strip (mass/volume) Ordered By: Art Bianchi on 78-39-5844Zzdlurt Auto test strip (U) [Mass/Vol] Normal mg/dLNormalMckitrick HospitalUrine hemoglobin detection by automated test stripOrdered By: Art Bianchi on 84-83-8373Nbxmygkevu Auto test strip Ql (U)NegativeNegFayette County Memorial HospitalUrine leukocyte esterase detection by automated test stripOrdered By: Art Bianchi on 11-07-2022 Leukocyte esterase Auto test strip Ql (U)NegativeNegFayette County Memorial HospitalUrobilinogen Auto test strip (U) [Mass/Vol]Ordered By: Art Bianchi on 00-75-7724Idxuooznxlfs (U) [Mass/Vol]Normal mg/dLNormalMckitrick HospitalWBC Auto (Bld) [#/Vol]Ordered By: Art Bianchi on 74-74-3987NUO (Bld) [#/Vol]10.3 10*3/uL4.5-13.5FThe Bellevue HospitalpH Auto test strip (U)Ordered By: Art Bianchi on 58-97-3704eG (U)8.5 [pH]5.0-9.0[facility] HospitalUrine culture routineOrdered By: Colten Fry on 72-13-4285Vgnetmwh identified Cx Nom (U)2 DaysMckitrick Hospital Albumin [Mass/volume] in Serum or PlasmaOrdered By: Colten Fry on 11-02-2022 Albumin [Mass/Vol]4.8 g/dL3.2-5.5FThe Bellevue HospitalAmphetamine Screen Ql (U)Ordered By: Colten Fry on 12-32-9629Esgiuynvdabc Ql (U)Negative NegativeMckitrick HospitalAutomated erythrocytes count in urine sediment (number/area)Ordered By: Colten Fry on 42-04-5591TSF Auto (Urine sed) [#/Area]20-49 [HPF]0-4FThe Bellevue HospitalAutomated leukocytes count in urine sediment (number/area)Ordered By: Colten Fry on 35-37-7594OKZ Auto (Urine sed) [#/Area]5-9 [HPF]0-4FThe [facility] Hospital Barbiturates [Presence] in UrineOrdered By: Colten Fry on 11-02-2022 Barbiturates Ql (U)NegativeNegativeMckitrick HospitalBasophils Auto (Bld) [#/Vol]Ordered By: Colten Fry on 27-09-2569Fsauncmlo (Bld) [#/Vol] 0.1 10*3/uL0.0-0.1FThe Bellevue HospitalBasophils/100 WBC Auto (Bld) Ordered By: Colten Fry on 95-55-6281Ozjmckbrm/100 WBC (Bld)0.5 %.[facility] HospitalBenzodiazepines [Presence] in UrineOrdered By: Colten Fry on 02-03-1564Vbdjclwrwgbjtqz Ql (U)NegativeNegativeMckitrick HospitalBilirubin Test strip Ql (U)Ordered By: Colten Fry on 11-02-2022 Bilirubin Ql (U)NegativeNegFayette County Memorial HospitalCannabinoids [Presence] in Urine by Screen methodOrdered By: Colten Fry on 11-02-2022 Cannabinoids Screen Ql (U)PositiveNegativeMckitrick HospitalColor Auto (U)Ordered By: Colten Fry on 85-68-8055Rxmvy (U)YellowYellowMckitrick HospitalEosinophils Auto (Bld) [#/Vol]Ordered By: Colten Fry on 98-28-2896Fxfsceuwnig (Bld) [#/Vol]0.3 10*3/uL0.0-0.7FThe Bellevue HospitalEosinophils/100 WBC Auto (Bld)Ordered By: Colten Fry on 27-61-4325Pwxtbitrsjw/100 WBC (Bld)2.1 %.[facility] Erythrocyte distribution width Auto (RBC) [Ratio]Ordered By: Colten Fry on 49-23-4429Kvthggqnptv distribution width (RBC) [Ratio]13.7 %11.9-15.3FThe Bellevue HospitalEstimated glomerular filtration rate (GFR) non- AmericanOrdered By: Colten Fry on 45-18-7601MDA/1.73 sq M.predicted among non-blacks MDRD (S/P/Bld) [Vol rate/Area]> 60 mL/MinMckitrick HospitalGlobulin Calc (S) [Mass/Vol]Ordered By: Colten Fry on 11-02-2022 Globulin (S) [Mass/Vol]3.1 g/dLMckitrick HospitalHCG ( test) IA.rapid Ql (U)Ordered By: Colten Fry on 09-51-8176DNW ( test) Ql (U)NegativeMckitrick HospitalHematocrit Auto (Bld) [Volume fraction]Ordered By: Colten Fry on 66-25-9457Fwflneomzi (Bld) [Volume fraction]45.3 %36.0-46.0[facility] HospitalHemoglobin [Mass/volume] in BloodOrdered By: Colten Fry on 52-90-9716Ybwvybffma (Bld) [Mass/Vol]15.4 g/dL12.0-16.0[facility] HospitalKetones Auto test strip (U) [Mass/Vol]Ordered By: Colten Fry on 87-27-2840Upoteoc (U) [Mass/Vol]3+NegativeMckitrick HospitalLeukocytes [#/volume] corrected for nucleated erythrocytes in Blood by Automated counOrdered By: Colten Fry on 05-50-3230MFR corrected for nucl RBC Auto (Bld) [#/Vol]11.7 10*3/uL4.5-13.5FThe Bellevue HospitalLymphocytes Auto (Bld) [#/Vol] Ordered By: Colten Fry on 98-28-8531Kgbhjioqqbt (Bld) [#/Vol]2.3 10*3/uL 1.20-4.8[facility] HospitalLymphocytes/100 WBC Auto (Bld)Ordered By: Colten Fry on 02-84-5624Sldoskqzvzi/100 WBC (Bld)19.6 %.[facility] Auto (RBC) [Entitic mass]Ordered By: Colten Fry on 66-40-5388VUT (RBC) [Entitic mass]28.4 pg25.0-35.0[facility] HospitalMCHC Auto (RBC) [Mass/Vol]Ordered By: Colten Fry on 83-33-0708AYBH (RBC) [Mass/Vol]34.0 g/dL31.0-37.0[facility] HospitalMCV Auto (RBC) [Entitic vol]Ordered By: Colten Fry on 99-63-7509KST (RBC) [Entitic vol]83.3 nS02-577LqdckkmohMckitrick HospitalMonocytes Auto (Bld) [#/Vol] Ordered By: Colten Fry on 81-43-2784Nnwyeezbj (Bld) [#/Vol]1.0 10*3/uL 0.1-1.00[facility] HospitalMonocytes/100 WBC Auto (Bld)Ordered By: Colten Fry on 34-57-4731Zyebgwcbm/100 WBC (Bld)8.5 %.[facility] HospitalNeutrophils Auto (Bld) [#/Vol]Ordered By: Colten Fry on 26-05-8503Idvdsorddue (Bld) [#/Vol]8.1 10*3/uL1.2-7.7FThe Bellevue HospitalNeutrophils/100 WBC Auto (Bld)Ordered By: Colten Fry on 11-02-2022 Neutrophils/100 WBC (Bld)69.3 %.[facility] HospitalNitrite Test strip Ql (U)Ordered By: Colten Fry on 76-88-0350Ujxyreg Ql (U)Negative NegativeMckitrick HospitalNo Panel InformationOrdered By: Colten Fry on -19 [LPF]0-8[facility] HospitalNegative [facility]> 60 mL/MinMckitrick Hospital100.26[facility] HospitalNo Panel InformationOrdered By: Robert Bolanos on .6 mg/dL1.6-2.6FThe [facility] Hospital Nucleated erythrocytes [Presence] in Blood by Automated countOrdered By: Colten Fry on 64-61-7901Buuyvxeqk RBC Auto Ql (Bld)0.1 /100{WBC}0-0.5FThe Bellevue HospitalPhencyclidine Screen Ql (U)Ordered By: Colten Fry on 24-36-7394Wybnfcppbydud Ql (U)NegativeNegFayette County Memorial Hospital Platelet mean volume Auto (Bld) [Entitic vol]Ordered By: Colten Fry on 54-06-2543Tqtpbeqx mean volume (Bld) [Entitic vol]7.9 fL6.3-10.7FThe Bellevue HospitalPlatelets Auto (Bld) [#/Vol]Ordered By: Colten Fry on 71-82-2660Hwdwvjfpr (Bld) [#/Vol]292 10*3/nF481-084YmkeizaznMckitrick HospitalProtein Auto test strip (U) [Mass/Vol]Ordered By: Colten Fry on 22-60-5439Ubgdinm (U) [Mass/Vol]30 mg/dLNegativeMckitrick HospitalProtein [Mass/volume] in Serum or PlasmaOrdered By: Colten Fry on 09-78-0263Bonupif [Mass/Vol]7.9 g/dL6.1-7.9M[facility] HospitalRBC Auto (Bld) [#/Vol]Ordered By: oClten Fry on 58-11-5994OUP (Bld) [#/Vol]5.43 10*6/uL4.10-5.10[facility] Hospitalerum or plasma alanine aminotransferase measurement without P-5'-P (enzymatic activiOrdered By: Colten Fry on 98-95-9110LON No additional P-5'-P [Catalytic activity/Vol]20 U/L10-60 [facility] Hospitalerum or plasma albumin/globulin mass ratio Ordered By: Colten Fry on 87-43-3140Eeypfxd/Globulin [Mass ratio]1.5 {ratio} [facility] Hospitalerum or plasma alkaline phosphatase measurement (enzymatic activity/volume)Ordered By: Colten Fry on 11-02-2022 ALP [Catalytic activity/Vol]65 U/E90-35WifbjkogaGalion Hospitalerum or plasma anion gap determinationOrdered By: Colten Fry on 21-45-9385Phiob gap [Moles/Vol]14.6 mmol/L6.0-15.0[facility] Hospitalerum or plasma aspartate aminotransferase measurement (enzymatic activity/volume)Ordered By: Colten Fry on 85-06-2866RRO [Catalytic activity/Vol]19 U/R76-05GrsummnrkGalion Hospitalerum or plasma calcium measurement (mass/volume)Ordered By: Colten Fry on 25-43-3674Spablnk [Mass/Vol]9.6 mg/dL8.2-10.2FAvita Health System Bucyrus Hospitalerum or plasma chloride measurement (moles/volume) Ordered By: Colten Fry on 78-64-8325Dgroeutr [Moles/Vol]95 mmol/L95-114 [facility] Hospitalerum or plasma creatinine measurement with calculation of estimated glomerular filtrOrdered By: Colten Fry on 11-02-2022 Creatinine and Glomerular filtration rate.predicted panel (S/P/Bld)0.88 mg/dL 0.44-1.03[facility] Hospitalerum or plasma glucose measurement (mass/volume)Ordered By: Colten Fry on 14-94-9184Bhygbwr [Mass/Vol]95 mg/dL 70-100[facility] Hospitalerum or plasma potassium measurement (moles/volume)Ordered By: Colten Fry on 17-03-0543Wyfmncktz [Moles/Vol]2.9 mmol/L3.5-5.1FAvita Health System Bucyrus Hospitalerum or plasma sodium measurement (moles/volume)Ordered By: Colten Fry on 69-70-6528Hqhmsj [Moles/Vol]134 mmol/Y448-973AejowaezjGalion Hospitalerum or plasma total bilirubin measurement (mass/volume)Ordered By: Colten Fry on 24-07-5024Uxemtcfqk [Mass/Vol]1.8 mg/dL0.3-1.2FAvita Health System Bucyrus Hospitalerum or plasma total carbon dioxide measurement (moles/volume)Ordered By: Colten Fry on 31-75-7276FX5 [Moles/Vol]27.3 mmol/L22.0-30.0[facility] Serum or plasma urea nitrogen measurement (mass/volume)Ordered By: Colten Fry on 65-81-1740Ikbb nitrogen [Mass/Vol]24 mg/dL9-23[facility] Hospitalpecific gravity Auto test strip (U) [Rel density]Ordered By: Colten Fry on 09-88-4494Zwdhorst gravity (U) [Rel density]1.0251.001-1.030[facility] Hospitalquamous epithelial cells detection in urine sediment by light microscopyOrdered By: Colten Fry on 78-06-3029Uggaojqoyu cells.squamous LM Ql (Urine sed)10-19 [HPF]0-[address] [place], [place] [address]Urine bacteria detection by automated methodOrdered By: Colten Fry on 11-00-9508Hxbaewhc Auto Ql (U)None seenNone SeenMckitrick HospitalUrine clarity by refractometry automatedOrdered By: Colten Fry on 26-56-8125Kpvlziz Refractometry automated (U)CloudyClearFThe Bellevue HospitalUrine cocaine detectionOrdered By: Colten Fry on 30-42-8161Sifnmtb Ql (U)Negative NegativeMckitrick HospitalUrine culture routineOrdered By: Colten Fry on 91-12-9530Lqynyyqo identified Cx Nom (U)2 DaysMckitrick HospitalUrine culture routineOrdered By: Art Bianchi on 71-77-0892Tbjtfugs identified Cx Nom (U)2 DaysMckitrick HospitalUrine glucose measurement by automated test strip (mass/volume)Ordered By: Colten Fry on 79-78-2580Lneyijg Auto test strip (U) [Mass/Vol]Normal mg/dLNoCleveland ClinicUrine hemoglobin detection by automated test stripOrdered By: Colten Fry on 78-32-5066Yrgnpexnsr Auto test strip Ql (U)3+Negative [facility] HospitalUrine leukocyte esterase detection by automated test stripOrdered By: Colten Fry on 96-52-7416Lmjlggojv esterase Auto test strip Ql (U)2+NegativeMckitrick HospitalUrobilinogen Auto test strip (U) [Mass/Vol]Ordered By: Colten Fry on 04-08-0475Rltefxnbjgaz (U) [Mass/Vol]Normal mg/dLNoCleveland ClinicWBC Auto (Bld) [#/Vol]Ordered By: Colten Fry on 52-34-5194LKQ (Bld) [#/Vol]11.7 10*3/uL 4.5-13.5FThe Bellevue HospitalpH Auto test strip (U)Ordered By: Colten Fry on 86-18-1855oF (U)7.0 [pH]5.0-9.0[facility] HospitalAlbumin [Mass/volume] in Serum or PlasmaOrdered By: Art Bianchi on 16-45-9358Ftnthjm [Mass/Vol]5.1 g/dL3.2-5.5FThe [facility] Hospital Automated erythrocytes count in urine sediment (number/area)Ordered By: Art Bianchi on 31-32-9649VFK Auto (Urine sed) [#/Area]Innumerable [HPF]0-4FThe Bellevue HospitalAutomated leukocytes count in urine sediment (number/area)Ordered By: Art Bianchi on 57-43-4033PMS Auto (Urine sed) [#/Area] 10-19 [HPF]0-4FThe Bellevue HospitalBasophils Auto (Bld) [#/Vol] Ordered By: Art Bianchi on 26-82-8826Ydccchxjp (Bld) [#/Vol]0.0 10*3/uL0.0-0.1 [facility] HospitalBasophils/100 WBC Auto (Bld)Ordered By: Art Bianchi on 02-66-5612Sghgrxphg/100 WBC (Bld)0.3 %.[facility] HospitalBilirubin Test strip Ql (U)Ordered By: Art Bianchi on 53-11-3137Rxilwmsuq Ql (U)NegativeNegativeMckitrick HospitalColor Auto (U)Ordered By: Art Bianchi on 23-97-9936Enpfi (U)RedYellowMckitrick Hospital Eosinophils Auto (Bld) [#/Vol]Ordered By: Art Bianchi on 96-02-9366Hydsphaxxns (Bld) [#/Vol]0.1 10*3/uL0.0-0.7FThe Bellevue HospitalEosinophils/100 WBC Auto (Bld)Ordered By: Art Bianchi on 08-76-2254Aghuztdgdxp/100 WBC (Bld)1.0 %.[facility] HospitalErythrocyte distribution width Auto (RBC) [Ratio]Ordered By: Art Bianchi on 55-37-9975Hhipwwieamv distribution width (RBC) [Ratio]14.0 %11.9-15.3FThe Bellevue HospitalEstimated glomerular filtration rate (GFR) non- AmericanOrdered By: Art Bianchi on 10-31-2022 GFR/1.73 sq M.predicted among non-blacks MDRD (S/P/Bld) [Vol rate/Area]> 60 mL/MinMckitrick HospitalGlobulin Calc (S) [Mass/Vol]Ordered By: Art Bianchi on 26-86-6000Xbjpdeyi (S) [Mass/Vol]3.1 g/dLMckitrick HospitalHCG ( test) IA.rapid Ql (U)Ordered By: Art Bianchi on 22-67-3990TJB ( test) Ql (U)NegativeMckitrick Hospital Hematocrit Auto (Bld) [Volume fraction]Ordered By: Art Bianchi on 10-31-2022 Hematocrit (Bld) [Volume fraction]45.0 %36.0-46.0[facility] HospitalHemoglobin [Mass/volume] in BloodOrdered By: Art Bianchi on 10-31-2022 Hemoglobin (Bld) [Mass/Vol]15.2 g/dL12.0-16.0[facility] Ketones Auto test strip (U) [Mass/Vol]Ordered By: Art Bianchi on 10-31-2022 Ketones (U) [Mass/Vol]3+NegativeMckitrick HospitalLeukocytes [#/volume] corrected for nucleated erythrocytes in Blood by Automated coun Ordered By: Art Bianchi on 76-20-9291GZF corrected for nucl RBC Auto (Bld) [#/Vol]14.0 10*3/uL4.5-13.5FThe Bellevue HospitalLymphocytes Auto (Bld) [#/Vol]Ordered By: Art Bianchi on 75-70-4198Yjfhvypdmrn (Bld) [#/Vol]2.2 10*3/uL1.20-4.8[facility] HospitalLymphocytes/100 WBC Auto (Bld) Ordered By: Art Bianchi on 34-59-8533Dlepbygvezu/100 WBC (Bld)15.5 %.[facility] Auto (RBC) [Entitic mass]Ordered By: Art Bianchi on 53-94-3871DBH (RBC) [Entitic mass]28.6 pg25.0-35.0M[facility] HospitalMCHC Auto (RBC) [Mass/Vol]Ordered By: Art Bianchi on 63-93-9685LTND (RBC) [Mass/Vol]33.7 g/dL31.0-37.0M[facility] HospitalMCV Auto (RBC) [Entitic vol]Ordered By: Art Bianchi on 71-02-9825CSX (RBC) [Entitic vol]85.0 fL 78-102Mckitrick HospitalMonocyte distribution width [Entitic volume] in Blood by AutomatedOrdered By: Art Bianchi on 73-41-3021Ztehnayd distribution width Auto (Bld) [Entitic vol]14.69 %0.00-20.00M[facility] HospitalMonocytes Auto (Bld) [#/Vol]Ordered By: Art Bianchi on 10-31-2022 Monocytes (Bld) [#/Vol]1.3 10*3/uL0.1-1.00[facility] Monocytes/100 WBC Auto (Bld)Ordered By: Art Bianchi on 77-98-9000Oqsdwjtky/100 WBC (Bld)9.1 %.[facility] HospitalNeutrophils Auto (Bld) [#/Vol] Ordered By: Art Bianchi on 08-62-3046Ugjmbdepyec (Bld) [#/Vol]10.4 10*3/uL 1.2-7.7FThe Bellevue HospitalNeutrophils/100 WBC Auto (Bld)Ordered By: Art Bianchi on 52-61-5940Ejodhjvqlun/100 WBC (Bld)74.1 %.[facility] HospitalNitrite Test strip Ql (U)Ordered By: Art Bianchi on 10-31-2022 Nitrite Ql (U)NegativeNegFayette County Memorial HospitalNo Panel InformationOrdered By: Art Bianchi on 31-90-04293-8 [LPF]0-8[facility]> 60 mL/MinMckitrick Hospital29.0 U/J26-97LhqzzeucsMckitrick Hospital102.97[facility] HospitalNucleated erythrocytes [Presence] in Blood by Automated countOrdered By: Art Bianchi on 26-22-3910Aqefqfgfh RBC Auto Ql (Bld)0.1 /100{WBC}0-0.5FThe Bellevue HospitalPlatelet mean volume Auto (Bld) [Entitic vol]Ordered By: Art Bianchi on 24-54-4742Ucxscayr mean volume (Bld) [Entitic vol]8.3 fL6.3-10.7 [facility] HospitalPlatelets Auto (Bld) [#/Vol]Ordered By: Art Bianchi on 99-57-2295Tkartkhpu (Bld) [#/Vol]337 10*3/wL367-644HlulzlvmgMckitrick HospitalProtein Auto test strip (U) [Mass/Vol]Ordered By: Art Bianchi on 54-30-0264Rtgvhce (U) [Mass/Vol]100 mg/dLNegativeMckitrick HospitalProtein [Mass/volume] in Serum or PlasmaOrdered By: Art Bianchi on 25-15-9319Qiuedue [Mass/Vol]8.2 g/dL6.1-7.9[facility] HospitalRBC Auto (Bld) [#/Vol]Ordered By: Art Bianchi on 30-04-0872ZLA (Bld) [#/Vol]5.29 10*6/uL4.10-5.10[facility] Hospitalerum or plasma alanine aminotransferase measurement without P-5'-P (enzymatic activiOrdered By: Art Bianchi on 95-08-8767RXF No additional P-5'-P [Catalytic activity/Vol]25 U/L10-60 [facility] Hospitalerum or plasma albumin/globulin mass ratio Ordered By: Art Bianchi on 02-92-5798Eairegq/Globulin [Mass ratio]1.6 {ratio} [facility] Hospitalerum or plasma alkaline phosphatase measurement (enzymatic activity/volume)Ordered By: Art Bianchi on 15-57-8859RXQ [Catalytic activity/Vol]62 U/T15-71BcyntscqqGalion Hospitalerum or plasma anion gap determinationOrdered By: Art Bianchi on 90-08-8104Jniwu gap [Moles/Vol]16.8 mmol/L6.0-15.0[facility] Hospitalerum or plasma aspartate aminotransferase measurement (enzymatic activity/volume)Ordered By: Art Bianchi on 74-11-2987RUY [Catalytic activity/Vol]25 U/N12-55PmzcxfrupGalion Hospitalerum or plasma calcium measurement (mass/volume)Ordered By: Art Bianchi on 03-07-1538Ueoreuw [Mass/Vol]9.9 mg/dL8.2-10.2FAvita Health System Bucyrus Hospitalerum or plasma chloride measurement (moles/volume) Ordered By: Art Bianchi on 11-47-6899Vgewijvc [Moles/Vol]96 mmol/L95-114 [facility] Hospitalerum or plasma creatinine measurement with calculation of estimated glomerular filtrOrdered By: Art Bianchi on 10-31-2022 Creatinine and Glomerular filtration rate.predicted panel (S/P/Bld)0.89 mg/dL 0.44-1.03[facility] Hospitalerum or plasma glucose measurement (mass/volume)Ordered By: Art Bianchi on 67-15-9142Rsonwgl [Mass/Vol]120 mg/dL 70-100[facility] Hospitalerum or plasma potassium measurement (moles/volume)Ordered By: Art Bianchi on 90-86-5952Apzrdzhot [Moles/Vol]3.2 mmol/L3.5-5.1FAvita Health System Bucyrus Hospitalerum or plasma sodium measurement (moles/volume)Ordered By: Art Bianchi on 17-61-5916Tfmqdq [Moles/Vol]132 mmol/L 136-146[facility] Hospitalerum or plasma total bilirubin measurement (mass/volume)Ordered By: Art Bianchi on 61-60-5681Jfoqzefie [Mass/Vol]1.7 mg/dL0.3-1.2FAvita Health System Bucyrus Hospitalerum or plasma total carbon dioxide measurement (moles/volume)Ordered By: Art Bianchi on 10-31-2022 CO2 [Moles/Vol]22.4 mmol/L22.0-30.0[facility] Hospitalerum or plasma urea nitrogen measurement (mass/volume)Ordered By: Art Bianchi on 14-09-1849Tucz nitrogen [Mass/Vol]28 mg/dL9-23[facility] Specific gravity Auto test strip (U) [Rel density]Ordered By: Art Bianchi on 81-23-9927Zshsarvk gravity (U) [Rel density]1.0301.001-1.030[facility] Hospitalquamous epithelial cells detection in urine sediment by light microscopyOrdered By: Art Bianchi on 58-51-1112Vesaqjnxcy cells.squamous LM Ql (Urine sed)10-19 [HPF]0-2FThe Bellevue HospitalUrine bacteria detection by automated methodOrdered By: Art Bianchi on 89-32-9117Ukhvamve Auto Ql (U)None seenNone SeenMckitrick HospitalUrine clarity by refractometry automatedOrdered By: Art Bianchi on 01-78-1517Bionyii Refractometry automated (U)CloudyClearFThe Bellevue HospitalUrine culture routineOrdered By: Art Bianchi 48-19-1202Lrqyivav identified Cx Nom (U)2 DaysMckitrick HospitalUrine glucose measurement by automated test strip (mass/volume)Ordered By: Art Bianchi on 42-57-7782Phdhbbd Auto test strip (U) [Mass/Vol]Normal mg/dLNormalMckitrick HospitalUrine hemoglobin detection by automated test stripOrdered By: Art Bianchi on 00-29-8357Fkznijlujx Auto test strip Ql (U)3+NegativeMckitrick HospitalUrine leukocyte esterase detection by automated test stripOrdered By: Art Bianchi on 36-27-6702Rgfkiwxyf esterase Auto test strip Ql (U)2+Negative [facility] HospitalUrobilinogen Auto test strip (U) [Mass/Vol] Ordered By: Art Bianchi on 37-81-2856Ydoxaercdpss (U) [Mass/Vol]Normal mg/dL NormalMckitrick HospitalWBC Auto (Bld) [#/Vol]Ordered By: Art Bianchi on 76-98-2988GQI (Bld) [#/Vol]14.0 10*3/uL4.5-13.5FThe Bellevue HospitalpH Auto test strip (U)Ordered By: Art Bianchi on 90-49-4197wQ (U) 6.5 [pH]5.0-9.0[facility] HospitalBasophils Auto (Bld) [#/Vol] Ordered By: Ravi Arguello on 92-42-7638Tmxtcprkx (Bld) [#/Vol]0.0 10*3/uL0.0-0.1 [facility] HospitalBasophils/100 WBC Auto (Bld)Ordered By: Ravi Arguello on 70-61-2469Rqvibmood/100 WBC (Bld)0.3 %.[facility] HospitalBody fluid albumin measurement (mass/volume)Ordered By: Ravi Arguello on 88-24-1431Irfvxsx (Body fld) [Mass/Vol]5.2 g/dL3.2-5.5FThe Bellevue HospitalCreatinine and Glomerular filtration rate.predicted panel (S/P/Bld) Ordered By: Ravi Arguello on 79-34-9503Pabzlycjgh [Mass/Vol]0.85 mg/dL0.44-1.03 [facility] HospitalDirect bilirubin measurementOrdered By: Ravi Arguello on 75-91-8393Lnvocbehx.direct [Mass/Vol]0.1 mg/dL0.0-0.4FThe Bellevue HospitalEosinophils Auto (Bld) [#/Vol]Ordered By: Ravi Arguello on 82-77-3166Zhfovdghdub (Bld) [#/Vol]0.0 10*3/uL0.0-0.7FThe Bellevue HospitalEosinophils/100 WBC Auto (Bld)Ordered By: Ravi Arguello on 10-29-2022 Eosinophils/100 WBC (Bld)0.1 %.[facility] HospitalErythrocyte distribution width Auto (RBC) [Ratio]Ordered By: Ravi Arguello on 10-29-2022 Erythrocyte distribution width (RBC) [Ratio]14.4 %11.9-15.3FThe Bellevue HospitalEstimated glomerular filtration rate (GFR) non- Ordered By: Ravi Arguello on 68-19-6912BSJ/1.73 sq M.predicted among non-blacks MDRD (S/P/Bld) [Vol rate/Area]> 60 mL/MinMckitrick Hospital Globulin Calc (S) [Mass/Vol]Ordered By: Ravi Arguello on 68-87-1846Qkonpmls (S) [Mass/Vol]3.7 g/dLMckitrick HospitalHematocrit Auto (Bld) [Volume fraction]Ordered By: Ravi Arguello on 11-07-3775Ocondwonif (Bld) [Volume fraction]42.9 %36.0-46.0[facility] HospitalHemoglobin [Mass/volume] in BloodOrdered By: Ravi Arguello on 96-19-8497Untwfebjra (Bld) [Mass/Vol]14.3 g/dL12.0-16.0[facility] HospitalLaboratory - Chemistry and Chemistry - challengeOrdered By: Ravi Arguello on 97-89-5525Alrtwv [Catalytic activity/Vol]25.0 U/V38-65YtfymgzbsMckitrick HospitalLeukocytes [#/volume] corrected for nucleated erythrocytes in Blood by Automated coun Ordered By: Ravi Arguello on 27-35-2383RCO corrected for nucl RBC Auto (Bld) [#/Vol]13.7 10*3/uL4.5-13.5FThe Bellevue HospitalLymphocytes Auto (Bld) [#/Vol]Ordered By: Ravi Arguello on 77-51-6317Thrmhcoubbf (Bld) [#/Vol]1.7 10*3/uL1.20-4.8[facility] HospitalLymphocytes/100 WBC Auto (Bld) Ordered By: Ravi Arguello on 17-47-5991Jeadhxczqyv/100 WBC (Bld)12.4 %.[facility] Auto (RBC) [Entitic mass]Ordered By: Ravi Arguello on 72-58-4678SEQ (RBC) [Entitic mass]28.4 pg25.0-35.0[facility] HospitalMCHC Auto (RBC) [Mass/Vol]Ordered By: Ravi Arguello on 53-44-5654LSLT (RBC) [Mass/Vol]33.3 g/dL31.0-37.0[facility] HospitalMCV Auto (RBC) [Entitic vol]Ordered By: Ravi Arguello on 32-81-9342SNY (RBC) [Entitic vol]85.1 aN93-108NzgoxxjohMckitrick HospitalMonocyte distribution width [Entitic volume] in Blood by AutomatedOrdered By: Ravi Arguello on 69-04-9378Tvxhrpii distribution width Auto (Bld) [Entitic vol]16.57 %0.00-20.00[facility] HospitalMonocytes Auto (Bld) [#/Vol]Ordered By: Ravi Arguello on 10-29-2022 Monocytes (Bld) [#/Vol]0.9 10*3/uL0.1-1.00[facility] Monocytes/100 WBC Auto (Bld)Ordered By: Ravi Arguello on 68-36-7054Evpwthitg/100 WBC (Bld)6.8 %.[facility] HospitalNeutrophils Auto (Bld) [#/Vol] Ordered By: Ravi Arguello on 14-29-1047Iklvnzbxrqb (Bld) [#/Vol]11.0 10*3/uL 1.2-7.7FThe Bellevue HospitalNeutrophils/100 WBC Auto (Bld)Ordered By: Ravi Arguello on 96-22-6561Lyfxwoyaznw/100 WBC (Bld)80.4 %.[facility] HospitalNo Panel InformationOrdered By: Ravi Arguello on 10-29-2022 Estimated GFR ()> 60 mL/MinMckitrick Hospital Comment on above:GFR estimated reference range: According to KDOQI guidelines, <60 ml/min/1.73m2 is sufficient todiagnose a patient with chronic kidney disease.Pharmacy Creatinine Clearance (Tpxr713.83[facility]> 60 mL/MinMckitrick Hospital25.0 U/Z21-28GvhfxloeeMckitrick Hospital105.83[facility] HospitalNucleated erythrocytes [Presence] in Blood by Automated countOrdered By: Ravi Arguello on 14-53-0712Juhwluhaz RBC Auto Ql (Bld)0.0 /100{WBC}0-0.5FThe Bellevue HospitalPlatelet mean volume Auto (Bld) [Entitic vol]Ordered By: Ravi Arguello on 90-88-0826Rtgiwmay mean volume (Bld) [Entitic vol]8.4 fL6.3-10.7 [facility] HospitalPlatelets Auto (Bld) [#/Vol]Ordered By: Ravi Arguello on 10-00-6861Wezgifdjp (Bld) [#/Vol]355 10*3/rB242-491MkixyiizsMckitrick HospitalProtein [Mass/volume] in Serum or PlasmaOrdered By: Ravi Arguello on 61-68-6526Pikvnlw [Mass/Vol]8.9 g/dL6.1-7.9[facility] RBC Auto (Bld) [#/Vol]Ordered By: Ravi Arguello on 59-56-4651CRX (Bld) [#/Vol] 5.04 10*6/uL4.10-5.10[facility] Hospitalerum or plasma alanine aminotransferase measurement without P-5'-P (enzymatic activiOrdered By: Ravi Arguello on 15-47-0010MDZ No additional P-5'-P [Catalytic activity/Vol]24 U/L10-60 [facility] Hospitalerum or plasma albumin/globulin mass ratio Ordered By: Ravi Arguello on 42-24-6287Zvrjabs/Globulin [Mass ratio]1.4 {ratio} [facility]erum or plasma alkaline phosphatase measurement (enzymatic activity/volume)Ordered By: Ravi Arguello on 27-38-8161LFG [Catalytic activity/Vol]68 U/P51-10TusoeakzmGalion Hospitalerum or plasma anion gap determinationOrdered By: Ravi Arguello on 58-69-8519Npbxc gap [Moles/Vol]19.9 mmol/L6.0-15.0[facility] Hospitalerum or plasma aspartate aminotransferase measurement (enzymatic activity/volume)Ordered By: Ravi Arguello on 53-87-8538MBB [Catalytic activity/Vol]20 U/D21-59MepemzjscGalion Hospitalerum or plasma calcium measurement (mass/volume)Ordered By: Ravi Arguello on 14-26-4183Zcqthgb [Mass/Vol]10.4 mg/dL8.2-10.2FAvita Health System Bucyrus Hospitalerum or plasma chloride measurement (moles/volume) Ordered By: Ravi Arguello on 29-81-3596Msjkwlht [Moles/Vol]100 mmol/L95-114 [facility] Hospitalerum or plasma creatinine measurement with calculation of estimated glomerular filtrOrdered By: Ravi Arguello on 10-29-2022 Creatinine and Glomerular filtration rate.predicted panel (S/P/Bld)0.85 mg/dL 0.44-1.03[facility] Hospitalerum or plasma glucose measurement (mass/volume)Ordered By: Ravi Arguello on 58-07-9285Nrvtnrj [Mass/Vol]114 mg/dL 70-100[facility] HospitalComment on above:ADA recommended reference rangeRandom Glucose Reference Range is dependent on time and content of last meal. Glucose of more than 200 mg/dL in a nonstressed, ambulatory subject supports the diagnosisof Diabetes Mellitus.Serum or plasma non- glucuronidated bilirubin measurement (mass/volume)Ordered By: Ravi Arguello on 02-60-8727Lyucgbjur.indirect [Mass/Vol]1.1 mg/dLGalion Hospitalerum or plasma potassium measurement (moles/volume)Ordered By: Rvai Arguello on 71-06-7956Vkvdovjkp [Moles/Vol]3.3 mmol/L3.5-5.1FAvita Health System Bucyrus Hospitalerum or plasma sodium measurement (moles/volume)Ordered By: Ravi Arguello on 73-82-0885Cvbdkn [Moles/Vol]137 mmol/E917-937TluqjrblrGalion Hospitalerum or plasma total bilirubin measurement (mass/volume)Ordered By: Ravi Arguello on 80-00-8750Ytparopxi [Mass/Vol]1.2 mg/dL0.3-1.2FAvita Health System Bucyrus Hospitalerum or plasma total carbon dioxide measurement (moles/volume)Ordered By: Ravi Arguello on 44-89-2485KI2 [Moles/Vol]20.4 mmol/L 22.0-30.0[facility] Hospitalerum or plasma urea nitrogen measurement (mass/volume)Ordered By: Ravi Arguello on 25-50-8379Caob nitrogen [Mass/Vol]21 mg/dL9-23[facility] HospitalWBC Auto (Bld) [#/Vol] Ordered By: Ravi Arguello on 64-08-5918PTW (Bld) [#/Vol]13.7 10*3/uL4.5-13.5 [facility] HospitalBasophils Auto (Bld) [#/Vol]Ordered By: Modesta Chand on 80-60-8762Kmcqvvims (Bld) [#/Vol]0.0 10*3/uL0.0-0.1 [facility] HospitalBasophils/100 WBC Auto (Bld)Ordered By: Modesta Chand on 17-18-4283Efiriqlre/100 WBC (Bld)0.3 %.[facility] HospitalBody fluid albumin measurement (mass/volume)Ordered By: Modesta Chand on 42-00-4895Bxqguyw (Body fld) [Mass/Vol]4.7 g/dL3.2-5.5FThe Bellevue HospitalCreatinine and Glomerular filtration rate.predicted panel (S/P/Bld)Ordered By: Modesta Chand on 63-09-0399Ldswhpbgfb [Mass/Vol]0.90 mg/dL0.44-1.03[facility] HospitalEosinophils Auto (Bld) [#/Vol] Ordered By: Modesta Chand on 80-84-8395Onzznmkroog (Bld) [#/Vol]0.3 10*3/uL0.0-0.7FThe Bellevue HospitalEosinophils/100 WBC Auto (Bld) Ordered By: Modesta Chand on 02-16-7282Xkiqstxxhaj/100 WBC (Bld)2.2 %. [facility] HospitalErythrocyte distribution width Auto (RBC) [Ratio]Ordered By: Modesta Chand on 77-84-4665Saembypjjbc distribution width (RBC) [Ratio]14.0 %11.9-15.3FThe Bellevue HospitalEstimated glomerular filtration rate (GFR) non- AmericanOrdered By: Modesta Chand on 08-35-4883FOR/1.73 sq M.predicted among non-blacks MDRD (S/P/Bld) [Vol rate/Area]> 60 mL/MinMckitrick HospitalGlobulin Calc (S) [Mass/Vol]Ordered By: Modesta Chand on 46-48-4569Nqncpnlq (S) [Mass/Vol] 2.5 g/dLMckitrick HospitalHematocrit Auto (Bld) [Volume fraction] Ordered By: Modesta Chand on 64-30-7740Sxydyftxxd (Bld) [Volume fraction] 46.5 %36.0-46.0[facility] HospitalHemoglobin [Mass/volume] in BloodOrdered By: Modesta Chand on 24-92-7000Zcpvyjnxlr (Bld) [Mass/Vol] 15.6 g/dL12.0-16.0[facility] HospitalLaboratory - Chemistry and Chemistry - challengeOrdered By: Modesta Chand on 63-92-6792Pysssv [Catalytic activity/Vol]27.0 U/M18-73KnrxtrxvdMckitrick HospitalLaboratory - Hematology and Cell countsOrdered By: Modesta Chand on 08-27-2022 Nucleated RBC/100 WBC (Bld) [Ratio]0.1 %0-0.5FThe [facility] Hospital Leukocytes [#/volume] in Blood by Automated countOrdered By: Modesta Chand on 72-15-3390OWM (Bld) [#/Vol]13.4 10*3/uL4.5-13.5FThe Bellevue HospitalLymphocytes Auto (Bld) [#/Vol]Ordered By: Modesta Chand on 72-42-6378Duwapcmjbtz (Bld) [#/Vol]3.1 10*3/uL1.20-4.8[facility] HospitalLymphocytes/100 WBC Auto (Bld)Ordered By: Modesta Chand on 94-08-8690Zlhpuzrarnx/100 WBC (Bld)22.9 %.[facility] Auto (RBC) [Entitic mass]Ordered By: Modesta Chand on 08-81-6892HQB (RBC) [Entitic mass]28.4 pg25.0-35.0[facility] HospitalMCHC Auto (RBC) [Mass/Vol]Ordered By: Modesta Chand on 87-25-1585OFXE (RBC) [Mass/Vol]33.5 g/dL31.0-37.0[facility] HospitalMCV Auto (RBC) [Entitic vol] Ordered By: Modesta Chand on 50-97-1087RJM (RBC) [Entitic vol]84.8 fL 78-102M[facility] HospitalMonocytes Auto (Bld) [#/Vol]Ordered By: Modesta Chand on 33-86-4547Xdakdembt (Bld) [#/Vol]1.2 10*3/uL0.1-1.00 [facility] HospitalMonocytes/100 WBC Auto (Bld)Ordered By: Modesta Chand on 30-14-3170Jdgmzbgri/100 WBC (Bld)9.1 %.[facility] HospitalNeutrophils Auto (Bld) [#/Vol]Ordered By: Modesta Chand on 57-71-4628Rgstihthhgh (Bld) [#/Vol]8.8 10*3/uL1.2-7.7FThe Bellevue HospitalNeutrophils/100 WBC Auto (Bld)Ordered By: Modesta Chand on 63-61-6799Hpfrlhccpxb/100 WBC (Bld)65.5 %.[facility] HospitalNo Panel InformationOrdered By: Modesta Chand on 70-04-0056Qhfmhiahk GFR ()> 60 mL/MinMckitrick HospitalComment on above: GFR estimated reference range: According to KDOQI guidelines, <60 ml/min/1.73m2 is sufficient todiagnose a patient with chronic kidney disease.Pharmacy Creatinine Clearance (ChemN/[facility]13.4 10*3/uL 4.5-13.5FThe [facility] Hospital0.1 %0-0.5FThe [facility] Hospital> 60 mL/MinMckitrick Hospital27.0 U/I44-81BkogpxfvkMckitrick HospitalN/[facility] HospitalPlatelet mean volume Auto (Bld) [Entitic vol]Ordered By: Modetsa Chand on 65-99-1390Fahqohqj mean volume (Bld) [Entitic vol]8.9 fL6.3-10.7FThe [facility] Hospital Platelets Auto (Bld) [#/Vol]Ordered By: Modesta Chand on 08-27-2022 Platelets (Bld) [#/Vol]373 10*3/hE812-605IgbhsgelwMckitrick Hospital Protein [Mass/volume] in Serum or PlasmaOrdered By: Modesta Chand on 00-09-5240Fqtvegp [Mass/Vol]7.2 g/dL6.1-7.9[facility] HospitalRBC Auto (Bld) [#/Vol]Ordered By: Modesta Chand on 15-59-4401DEX (Bld) [#/Vol] 5.49 10*6/uL4.10-5.10[facility] Hospitalerum or plasma alanine aminotransferase measurement without P-5'-P (enzymatic activiOrdered By: Modesta Chand on 35-11-2727SOK No additional P-5'-P [Catalytic activity/Vol]20 U/R98-42PgftanwumGalion Hospitalerum or plasma albumin/globulin mass ratioOrdered By: Modesta Chand on 08-27-2022 Albumin/Globulin [Mass ratio]1.9 {ratio}[facility] Hospitalerum or plasma alkaline phosphatase measurement (enzymatic activity/volume)Ordered By: Modesta Chand on 45-91-2542XJB [Catalytic activity/Vol]63 U/L32-92 [facility] Hospitalerum or plasma amylase measurement (enzymatic activity/volume)Ordered By: Modesta Chand on 69-84-8994Xabmxzb [Catalytic activity/Vol]25 U/U56-609TxehebzujGalion Hospitalerum or plasma anion gap determinationOrdered By: Modesta Chand on 72-10-9602Nopls gap [Moles/Vol]22.5 mmol/L6.0-15.0[facility] Hospitalerum or plasma aspartate aminotransferase measurement (enzymatic activity/volume)Ordered By: Modesta Chand on 12-65-6905ZXF [Catalytic activity/Vol]18 U/L10-42 [facility] Hospitalerum or plasma calcium measurement (mass/volume)Ordered By: Modesta Chand on 94-01-5672Hrtibwg [Mass/Vol]10.1 mg/dL8.2-10.2FAvita Health System Bucyrus Hospitalerum or plasma chloride measurement (moles/volume)Ordered By: Modesta Chand on 17-11-7031Fciwscqk [Moles/Vol]89 mmol/N64-801JqaedfiswGalion Hospitalerum or plasma creatinine measurement with calculation of estimated glomerular filtrOrdered By: Modesta Chand on 00-48-8884Umhekynaha and Glomerular filtration rate.predicted panel (S/P/Bld)0.90 mg/dL0.44-1.03[facility] Hospitalerum or plasma glucose measurement (mass/volume)Ordered By: Modesta Chand on 18-43-1304Ovjrnhx [Mass/Vol]76 mg/hJ62-865EipmdgwmzMckitrick HospitalComment on above:ADA recommended reference rangeRandom Glucose Reference Range is dependent on time and content of last meal. Glucose of more than 200 mg/dL in a nonstressed, ambulatory subject supports the diagnosisof Diabetes Mellitus.Serum or plasma potassium measurement (moles/volume)Ordered By: Modesta Chand on 97-03-3437Veictjuii [Moles/Vol]3.7 mmol/L3.5-5.1 [facility] Hospitalerum or plasma sodium measurement (moles/volume)Ordered By: Modesta Chand on 08-82-5163Sxikvp [Moles/Vol]131 mmol/G730-738YaaexidgrGalion Hospitalerum or plasma total bilirubin measurement (mass/volume)Ordered By: Modesta Chand on 64-78-2285Iglsxcius [Mass/Vol]1.6 mg/dL0.3-1.2FThe Bellevue HospitalComment on above: Samples from patients who have taken Naproxen have shown spurious elevation in Total Bilirubin levels. A metabolite of Naproxen, O-desmethylnaproxen, has been shown to interfere with the Solomon method for measuring Total Bilirubin.Serum or plasma total carbon dioxide measurement (moles/volume)Ordered By: Modesta Chand on 06-17-4638TS2 [Moles/Vol]23.2 mmol/L22.0-30.0 [facility] Hospitalerum or plasma urea nitrogen measurement (mass/volume)Ordered By: Modesta Chand on 27-61-1991Idik nitrogen [Mass/Vol]15 mg/dL9-23[facility] HospitalBasophils Auto (Bld) [#/Vol]Ordered By: Gregorio Carey on 62-45-7674Lcogjvfqh (Bld) [#/Vol]0.0 10*3/uL0.0-0.1FThe Bellevue HospitalBasophils/100 WBC Auto (Bld) Ordered By: Gregorio Carey on 71-20-1089Xcfxtrwiw/100 WBC (Bld)0.3 %. [facility] HospitalBlood hemoglobin measurement (mass/volume) Ordered By: Gregorio Carey on 50-07-9180Xkluuvsbek (Bld) [Mass/Vol]13.1 g/dL12.0-16.0[facility] HospitalBlood leukocytes automated count (number/volume)Ordered By: Gregorio Carey on 29-84-6784YYX (Bld) [#/Vol] 9.7 10*3/uL4.5-13.5FThe Bellevue HospitalCreatinine and Glomerular filtration rate.predicted panel (S/P/Bld)Ordered By: Gregorio Carey on 33-76-7831Tohlrkslww [Mass/Vol]0.75 mg/dL0.44-1.03[facility] HospitalEosinophils Auto (Bld) [#/Vol]Ordered By: Gregorio Carey on 61-22-9624Tiviiqchojc (Bld) [#/Vol]0.1 10*3/uL0.0-0.7FThe Bellevue HospitalEosinophils/100 WBC Auto (Bld)Ordered By: Gregorio Carey on 21-39-7758Zdozasftxum/100 WBC (Bld)1.0 %.[facility] Erythrocyte distribution width Auto (RBC) [Ratio]Ordered By: Gregorio Carey on 80-10-3808Cspgrvjdceu distribution width (RBC) [Ratio]14.1 % 11.9-15.3FThe Bellevue HospitalEstimated glomerular filtration rate (GFR) non- AmericanOrdered By: Gregorio Carey on 65-25-7093DSX/1.73 sq M.predicted among non-blacks MDRD (S/P/Bld) [Vol rate/Area]> 60 mL/Min [facility] HospitalHematocrit Auto (Bld) [Volume fraction]Ordered By: Gregorio Carey on 94-77-8323Gphwylvvnu (Bld) [Volume fraction]39.6 % 36.0-46.0[facility] HospitalLaboratory - Hematology and Cell countsOrdered By: Gregorio Carey on 35-83-8695Fkzfcrzim RBC/100 WBC (Bld) [Ratio]0.0 %0-0.5FThe Bellevue HospitalLymphocytes Auto (Bld) [#/Vol] Ordered By: Gregorio Carey on 41-66-6148Akvrixfwbjv (Bld) [#/Vol]2.0 10*3/uL1.20-4.8[facility] HospitalLymphocytes/100 WBC Auto (Bld) Ordered By: Gregorio Carey on 03-17-7426Ziazrjalxhf/100 WBC (Bld)20.5 %. [facility] (RBC) [Entitic mass]Ordered By: Gregorio Carey on 13-68-6794TWX (RBC) [Entitic mass]28.0 pg25.0-35.0 [facility] HospitalMCHC Auto (RBC) [Mass/Vol]Ordered By: Gregorio Carey on 35-32-5749QDBI (RBC) [Mass/Vol]33.2 g/dL31.0-37.0 [facility] HospitalMCV Auto (RBC) [Entitic vol]Ordered By: Gregorio Carey on 44-50-2378LSK (RBC) [Entitic vol]84.5 gY70-538YnykslzbsMckitrick HospitalMonocytes Auto (Bld) [#/Vol]Ordered By: rGegorio Carey on 55-61-1779Uvansoxrx (Bld) [#/Vol]0.8 10*3/uL0.1-1.00[facility] HospitalMonocytes/100 WBC Auto (Bld)Ordered By: Gregorio Carey on 00-83-9401Cvckglshy/100 WBC (Bld)8.0 %.[facility]rick HospitalNeutrophils Auto (Bld) [#/Vol]Ordered By: Gregorio Carey on 67-69-5119Cvaipvhhkgu (Bld) [#/Vol]6.8 10*3/uL1.2-7.7FThe Bellevue HospitalNeutrophils/100 WBC Auto (Bld)Ordered By: Gregorio Carey on 05-99-0066Dzcconwjacy/100 WBC (Bld)70.2 %.[facility] HospitalNo Panel InformationOrdered By: Gregorio Carey on 61-09-2384Tvdwxuhzm GFR ()> 60 mL/MinMckitrick HospitalComment on above: GFR estimated reference range: According to KDOQI guidelines, <60 ml/min/1.73m2 is sufficient todiagnose a patient with chronic kidney disease.Pharmacy Creatinine Clearance (Jmdj369.26[facility]9.7 10*3/uL 4.5-13.5FThe Bellevue Hospital0.0 %0-0.5FThe [facility] Hospital> 60 mL/MinMckitrick Hospital117.26[facility] HospitalPlatelet mean volume Auto (Bld) [Entitic vol]Ordered By: Gregorio Carey on 80-52-2872Lzuuevua mean volume (Bld) [Entitic vol]8.6 fL 6.3-10.7FThe Bellevue HospitalPlatelets Auto (Bld) [#/Vol]Ordered By: Gregorio Carey on 56-74-5050Jesrerbcy (Bld) [#/Vol]246 10*3/tG392-103 [facility] HospitalRBC Auto (Bld) [#/Vol]Ordered By: Gregorio Carey on 25-19-5524BPP (Bld) [#/Vol]4.69 10*6/uL4.10-5.10[facility] Hospitalerum nuclear antibody titerOrdered By: Gregorio Carey on 30-02-7221Icopnwa Ab (S) [Titer]Negative.[facility] Comment on above:Negative <1:80 Borderline 1:80 Positive >1:80ICAP nomenclature: AC-0For more information about Hep-2 cell patterns useANApatterns.org, the official website for theInternational Consensus on Antinuclear Antibody (EDMOND)Patterns (ICAP).Performed at: - [facility] [id number] Director: James Nelson PhD, Phone: [phone] or plasma anion gap determinationOrdered By: Gregorio Carey on 18-33-5550Wlzal gap [Moles/Vol]17.0 mmol/L6.0-15.0[facility] Hospitalerum or plasma beta choriogonadotropin measurement (units/volume)Ordered By: Gregorio Carey on 28-04-9927NNS.beta subunit Qnm[IU]/mLMckitrick HospitalComment on above:Approximate Approximate hCG Gestational Age Range (mIU/ml) (weeks) 0.2-1 5-50 1-2 50-500 2-3 100-5,000 3-4 500-10,000 4-5 1,000-50,000 5-6 10,000-100,000 6-8 15,000-200,000 8-12 10,000-100,000 Approximate Approximate hCG Gestational Age Range (mIU/ml) (weeks)0.2-1 5-50 1-2 50-500 2-3 100-5,000 3-4 500-10,000 4-5 1,000-50,000 5-6 10,000-100,000 6-8 15,000-200,000 8-12 10,000-100,000Serum or plasma calcium measurement (mass/volume)Ordered By: Gregorio Carey on 85-55-5503Dhaodha [Mass/Vol]9.4 mg/dL8.2-10.2FAvita Health System Bucyrus Hospitalerum or plasma chloride measurement (moles/volume)Ordered By: Gregorio Carey on 02-48-3514Moumtyjm [Moles/Vol]99 mmol/H86-705XxavnqkdvGalion Hospitalerum or plasma creatinine measurement with calculation of estimated glomerular filtrOrdered By: Gregorio Carey on 98-56-6030Ouynduuwop and Glomerular filtration rate.predicted panel (S/P/Bld)0.75 mg/dL0.44-1.03[facility] Hospitalerum or plasma glucose measurement (mass/volume)Ordered By: Gregorio Carey on 79-92-7095Accqqyy [Mass/Vol]90 mg/zH59-317RpyfkbpfkMckitrick HospitalComment on above:ADA recommended reference range Random Glucose [...] potassium measurement (moles/volume)Ordered By: Gregorio Carey on 23-24-0398Lupybbsto [Moles/Vol]3.8 mmol/L3.5-5.1 [facility] Hospitalerum or plasma sodium measurement (moles/volume)Ordered By: Gregorio Carey on 40-32-6232Tlwiiv [Moles/Vol] 134 mmol/R437-638YhxkputxlGalion Hospitalerum or plasma total carbon dioxide measurement (moles/volume)Ordered By: Grgeorio Carey on 08-22-2022 CO2 [Moles/Vol]21.8 mmol/L22.0-30.0[facility] Hospitalerum or plasma urea nitrogen measurement (mass/volume)Ordered By: Greogrio Carey on 86-44-1621Kbkq nitrogen [Mass/Vol]7 mg/dL9-Mckitrick HospitalUrine culture routineOrdered By: Gregorio Carey on 08-22-2022 Bacteria identified Cx Nom (U[facility]2 [facility] CenterU[facility] routineOrdered By: Gilson Castro on 68-15-8437Kyppxiaj identified Cx Nom (U)2 [facility] CenterUrine culture routineOrdered By: Colten Fry on 47-22-5948Wrdozvjp identified Cx Nom (U)2 [facility] CenterAmphetamine Screen Ql (U)Ordered By: Gilson Castro on 25-37-2749Mdnuexjurorv Ql (U)NegativeNegativeMckitrick Hospital Automated erythrocytes count in urine sediment (number/area)Ordered By: Gilson Castro on 83-49-1064BNC Auto (Urine sed) [#/Area]None seen [HPF]0-4FThe Bellevue HospitalAutomated leukocytes count in urine sediment (number/area)Ordered By: Gilson Castro on 64-25-3848KAU Auto (Urine sed) [#/Area]1-2 [HPF]0-4FThe Bellevue HospitalBarbiturates [Presence] in UrineOrdered By: Gilson Castro on 66-49-1070Czjdrjfdrvmp Ql (U)PositiveNegative [facility] HospitalBasophils Auto (Bld) [#/Vol]Ordered By: Gilson Castro on 21-54-7879Gqjaodeqg (Bld) [#/Vol]0.0 10*3/uL0.0-0.1FThe Bellevue HospitalBasophils/100 WBC Auto (Bld)Ordered By: Gilson Castro on 77-81-6931Fnptoxurp/100 WBC (Bld)0.4 %.[facility] Benzodiazepines [Presence] in UrineOrdered By: Gilson Castro on 08-20-2022 Benzodiazepines Ql (U)NegativeNegFayette County Memorial HospitalBilirubin Test strip Ql (U)Ordered By: Gilson Castro on 61-95-5422Hypjjjtco Ql (U) NegativeNegFayette County Memorial HospitalBlood anisocytosis detection Ordered By: Gilson Castro on 58-19-1084Qhfcdkzmvbwb Ql (Bld)SlightMckitrick HospitalBlood hemoglobin measurement (mass/volume)Ordered By: Gilson Castro on 48-71-6969Izrfotycgp (Bld) [Mass/Vol]12.1 g/dL12.0-16.0 [facility] HospitalBlood leukocytes automated count (number/volume)Ordered By: Gilson Castro on 78-33-4574VBU (Bld) [#/Vol]10.9 10*3/uL4.5-13.5FThe Bellevue HospitalCOVID-19 Positive/Negative Ordered By: Ravi Arguello on 24-76-4894KUWF-CoV-2 (COVID-19) N gene JANAK+probe Ql (Resp)NegativeNegFayette County Memorial HospitalComment on above:Testing for SARS-CoV-2 by RT-PCR This test was developed and its performance characteristics determined by [employer] ([employer]) and validated at the [facility]. This test has not been FDA [...] and its performance characteristics determined by [employer] (BD) and validated at the [facility]. This test has not been FDA [...] on 08-20-2022 SARS-CoV+SARS-CoV-2 (COVID-19) Ag IA.rapid Ql (Resp)NegativeNegFayette County Memorial HospitalComment on above:This is a duplicate Adia SARS Antigen (JOSE A) result to be used for statistical tracking purpose only.Cannabinoids [Presence] in Urine by Screen methodOrdered By: Gilson Castro on 08-20-2022 Cannabinoids Screen Ql (U)PositiveNegFayette County Memorial Hospital Comment on above:These are unconfirmed results and [...] ng/mLColor Auto (U)Ordered By: Gilson Castro on 45-23-3624Xumga (U)YellowYellowMckitrick HospitalCreatinine and Glomerular filtration rate.predicted panel (S/P/Bld)Ordered By: Gilson Castro on 15-88-3999Fyeguavaev [Mass/Vol]0.65 mg/dL0.44-1.03 [facility] HospitalEosinophils Auto (Bld) [#/Vol]Ordered By: Gilson Castro on 30-72-1422Umwtmfaktkx (Bld) [#/Vol]0.0 10*3/uL0.0-0.7FThe Bellevue HospitalEosinophils/100 WBC Auto (Bld)Ordered By: Gilson Castro on 86-20-2727Fgjosbeklps/100 WBC (Bld)0.3 %.[facility] Erythrocyte distribution width Auto (RBC) [Ratio]Ordered By: Gilson Castro on 42-64-1000Inlqaeprdje distribution width (RBC) [Ratio]13.9 %11.9-15.3FThe Bellevue HospitalEstimated glomerular filtration rate (GFR) non- AmericanOrdered By: Gilson Castro on 60-92-4064EDO/1.73 sq M.predicted among non-blacks MDRD (S/P/Bld) [Vol rate/Area]> 60 mL/MinMckitrick HospitalHematocrit Auto (Bld) [Volume fraction]Ordered By: Gilson Castro on 79-59-5091Mqwglorphd (Bld) [Volume fraction]36.8 %36.0-46.0[facility] HospitalKetones Auto test strip (U) [Mass/Vol]Ordered By: Gilson Castro on 50-81-6430Hutmycq (U) [Mass/Vol]2+NegativeMckitrick Hospital Laboratory - Chemistry and Chemistry - challengeOrdered By: Gilson Castro on 46-72-7960Lxrfjkfmz [Mass/Vol]1.9 mg/dL1.6-2.6FThe [facility]vue Hospital Laboratory - Drug toxicologyOrdered By: Gilson Castro on 52-99-1611Zbiisum Ql (U)NegativeNegativeMckitrick HospitalLaboratory - Hematology and Cell countsOrdered By: Gilson Castro on 44-83-2019Arnsikipq RBC/100 WBC (Bld) [Ratio]0.0 %0-0.5FThe Bellevue HospitalLaboratory - UrinalysisOrdered By: Gilson Castro on 51-15-0241Acgcnxi casts LM Ql (Urine sed)None seen [LPF] 0-8[facility] HospitalLymphocytes Auto (Bld) [#/Vol]Ordered By: Gilson Castro on 03-72-2163Kqagftrxilh (Bld) [#/Vol]1.3 10*3/uL1.20-4.8[facility] HospitalLymphocytes/100 WBC Auto (Bld)Ordered By: Gilson Castro on 86-72-1823Hefdviozhis/100 WBC (Bld)11.5 %.[facility] MCH Auto (RBC) [Entitic mass]Ordered By: Gilson Castro on 44-73-1570RWD (RBC) [Entitic mass]28.1 pg25.0-35.0[facility] HospitalMCHC Auto (RBC) [Mass/Vol]Ordered By: Gilson Castro on 84-48-0336DDWQ (RBC) [Mass/Vol]32.9 g/dL 31.0-37.0[facility] HospitalMCV Auto (RBC) [Entitic vol]Ordered By: Gilson Castro on 87-41-8754MYB (RBC) [Entitic vol]85.5 sL83-960UueqxrbhcMckitrick HospitalMonocytes Auto (Bld) [#/Vol]Ordered By: Gilson Castro on 07-77-8525Iqumanyxe (Bld) [#/Vol]0.4 10*3/uL0.1-1.00[facility] HospitalMonocytes/100 WBC Auto (Bld)Ordered By: Gilson Castro on 08-20-2022 Monocytes/100 WBC (Bld)3.7 %.[facility] HospitalNeutrophils Auto (Bld) [#/Vol]Ordered By: Gilson Castro on 02-02-3433Deoqwiygfkc (Bld) [#/Vol]9.2 10*3/uL1.2-7.7FThe Bellevue HospitalNeutrophils/100 WBC Auto (Bld) Ordered By: Gilson Castro on 53-23-5371Luibcamufol/100 WBC (Bld)84.1 %.[facility] HospitalNitrite Test strip Ql (U)Ordered By: Gilson Castro on 59-69-8514Rdqgfbq Ql (U)NegativeNegativeMckitrick HospitalNo Panel InformationOrdered By: Gilson Castro on 87-17-7792Vhaf seen [LPF]0-8 [facility] HospitalNegativeNegFayette County Memorial HospitalEstimated GFR ()> 60 mL/MinMckitrick HospitalComment on above:GFR estimated reference range: According to KDOQI guidelines, <60 ml/min/1.73m2 is sufficient todiagnose a patient with chronic kidney disease.Pharmacy Creatinine Clearance (Defd641.96[facility] HospitalPlatelet EstimateNormalNormDayton Children's Hospital Platelet Morphology CommentNormalNormDayton Children's HospitalNormal NormalMckitrick Hospital1.9 mg/dL1.6-2.6FThe Bellevue HospitalNo Panel InformationOrdered By: Ravi Arguello on 04-15-5069RVIF Antigen (LFIA)[facility] HospitalPhencyclidine Screen Ql (U) Ordered By: Gilson Castro on 38-45-9437Xbczlzfutoayd Ql (U)NegativeNegative [facility] HospitalPlatelet mean volume Auto (Bld) [Entitic vol] Ordered By: Gilson Castro on 03-51-3252Kxfamgnc mean volume (Bld) [Entitic vol] 8.6 fL6.3-10.7FThe Bellevue HospitalPlatelets Auto (Bld) [#/Vol] Ordered By: Gilson Castro on 96-00-6368Edrniofqv (Bld) [#/Vol]145 10*3/aZ574-220 [facility] HospitalComment on above:Delta: 314 on 08/19/22 Protein Auto test strip (U) [Mass/Vol]Ordered By: Gilson Castro on 08-20-2022 Protein (U) [Mass/Vol]NegativeNegativeMckitrick HospitalRB Auto (Bld) [#/Vol]Ordered By: Gilson Castro on 19-98-5986JFH (Bld) [#/Vol]4.31 10*6/uL4.10-5.10[facility] morphologyOrdered By: Gilson Castro on 65-00-8949XGG morphology finding Nom (Bld)N/AFAvita Health System Bucyrus Hospitalerum or plasma anion gap determinationOrdered By: Gilson Castro on 06-39-0410Sbdoo gap [Moles/Vol]15.2 mmol/L6.0-15.0Galion Hospitalerum or plasma calcium measurement (mass/volume)Ordered By: Gilson Castro on 59-76-6822Chkcnni [Mass/Vol]8.6 mg/dL8.2-10.2FAvita Health System Bucyrus Hospitalerum or plasma chloride measurement (moles/volume)Ordered By: Gilson Castro on 54-86-4155Vtncekgw [Moles/Vol]101 mmol/B22-659UsfinfhbtGalion Hospitalerum or plasma glucose measurement (mass/volume)Ordered By: Gilson Castro on 85-52-8651Ljejzoj [Mass/Vol]96 mg/cR46-847RxwzejwfaMckitrick HospitalComment on above:ADA recommended reference range Random Glucose Reference Range is dependent on time and content of last meal. Glucose of more than 200 mg/dL in a nonstressed, ambulatory subject supports the diagnosis of Diabetes Mellitus.Serum or plasma potassium measurement (moles/volume)Ordered By: Gilson Castro on 15-27-5991Vxlzsaznl [Moles/Vol]3.1 mmol/L3.5-5.1FAvita Health System Bucyrus Hospitalerum or plasma sodium measurement (moles/volume)Ordered By: Gilson Castro on 86-25-4909Byywuy [Moles/Vol]135 mmol/X856-234VynxqroexGalion Hospitalerum or plasma total carbon dioxide measurement (moles/volume)Ordered By: Gilson Castro on 70-61-0584HZ9 [Moles/Vol]21.9 mmol/L22.0-30.0Gal[facility] Hospitalerum or plasma urea nitrogen measurement (mass/volume)Ordered By: Gilson Castro on 08-20-2022 Urea nitrogen [Mass/Vol]11 mg/dL08-20Gal[facility] Hospitalpecific gravity Auto test strip (U) [Rel density]Ordered By: Gilson Castro on 08-20-2022 Specific gravity (U) [Rel density]1.0081.001-1.030Galion Hospitalquamous epithelial cells detection in urine sediment by light microscopy Ordered By: Gilson Castro on 62-95-5877Ynjrbyrmkn cells.squamous LM Ql (Urine sed)1-2 [HPF]0-2FThe Bellevue HospitalUrine bacteria detection by automated methodOrdered By: Gilson Castro on 95-73-1769Bhqpzucq Auto Ql (U)None seenNone SeenMckitrick HospitalUrine clarity by refractometry automatedOrdered By: Gilson Castro on 79-46-7614Hnexhwn Refractometry automated (U)ClearCleSelect Medical Specialty Hospital - Cleveland-FairhillUrine cocaine detectionOrdered By: Gilson Castro on 63-40-0986Yszbwvn Ql (U)NegativeNegFayette County Memorial HospitalUrine glucose measurement by automated test strip (mass/volume) Ordered By: Gilson Castro on 29-30-1652Labfyxv Auto test strip (U) [Mass/Vol] Normal mg/dLNoCleveland ClinicUrine hemoglobin detection by automated test stripOrdered By: Gilson Castro on 37-32-9393Nxnyyqawil Auto test strip Ql (U)NegativeNegFayette County Memorial HospitalUrine leukocyte esterase detection by automated test stripOrdered By: Gilson Castro on 18-64-3719Lfnfeegrp esterase Auto test strip Ql (U)1+NegativeMckitrick HospitalUrobilinogen Auto test strip (U) [Mass/Vol]Ordered By: Gilson Castro on 61-78-2666Vzqlzzxppvde (U) [Mass/Vol]Normal mg/dLNormDayton Children's HospitalpH Auto test strip (U)Ordered By: Gilson Castro on 91-01-6671jC (U)7.0 [pH]5.0-9.0[facility] HospitalAutomated erythrocytes count in urine sediment (number/area)Ordered By: Gilson Castro on 08-72-8790TBG Auto (Urine sed) [#/Area]3-4 [HPF]0-4FThe Bellevue HospitalAutomated erythrocytes count in urine sediment (number/area)Ordered By: Colten Fry on 21-04-8138XWO Auto (Urine sed) [#/Area]None seen [HPF]0-4 [facility] HospitalAutomated leukocytes count in urine sediment (number/area)Ordered By: Gilson Castro on 89-38-6626MZE Auto (Urine sed) [#/Area]20-49 [HPF]0-4FThe [facility]vue HospitalAutomated leukocytes count in urine sediment (number/area)Ordered By: Colten Fry on 80-51-1678CBU Auto (Urine sed) [#/Area]5-9 [HPF]0-4FThe Bellevue HospitalAutomated urine hyaline casts count (number/volume)Ordered By: Gilson Castro on 08-19-2022 Hyaline casts Auto (U) [#/Vol]None seen [LPF]0-1FThe Bellevue HospitalBasophils Auto (Bld) [#/Vol]Ordered By: Gilson Castro on 08-19-2022 Basophils (Bld) [#/Vol]0.0 10*3/uL0.0-0.1FThe [facility] Hospital Basophils Auto (Bld) [#/Vol]Ordered By: Colten Fry on 55-94-5139Aihcriknx (Bld) [#/Vol]0.0 10*3/uL0.0-0.1FThe Bellevue HospitalBasophils/100 WBC Auto (Bld)Ordered By: Gilson Castro on 14-91-6156Aoyzwxclw/100 WBC (Bld)0.2 %.[facility] HospitalBasophils/100 WBC Auto (Bld)Ordered By: Colten Fry on 98-38-2301Qkgdcceip/100 WBC (Bld)0.4 %.[facility] HospitalBilirubin Test strip Ql (U)Ordered By: Gilson Castro on 08-19-2022 Bilirubin Ql (U)NegativeNegativeMckitrick HospitalBilirubin Test strip Ql (U)Ordered By: Colten Fry on 61-90-6489Oremdtmdz Ql (U)Negative NegativeMckitrick HospitalBlood hemoglobin measurement (mass/volume)Ordered By: Gilson Castro on 57-61-9748Clqejanyej (Bld) [Mass/Vol] 13.2 g/dL12.0-16.0[facility] HospitalBlood hemoglobin measurement (mass/volume)Ordered By: Colten Fry on 21-37-9371Goznaiqvpc (Bld) [Mass/Vol] 12.8 g/dL12.0-16.0[facility] HospitalBlood leukocytes automated count (number/volume)Ordered By: Gilson Castro on 59-78-4433XKV (Bld) [#/Vol] 15.5 10*3/uL4.5-13.5FThe Bellevue HospitalBlood leukocytes automated count (number/volume)Ordered By: Colten Fry on 18-92-7024JTT (Bld) [#/Vol] 13.5 10*3/uL4.5-13.5FThe Bellevue HospitalBody fluid albumin measurement (mass/volume)Ordered By: Gilson Castro on 06-97-3196Jxvlutn (Body fld) [Mass/Vol]4.0 g/dL3.2-5.5FThe Bellevue HospitalBody fluid albumin measurement (mass/volume)Ordered By: Colten Fry on 73-41-6889Toijtfg (Body fld) [Mass/Vol]4.5 g/dL3.2-5.5FThe Bellevue HospitalCOVID-19 SOFIAOrdered By: Gilson Castro on 67-56-4630PPII-CoV+SARS-CoV-2 (COVID-19) Ag IA.rapid Ql (Resp)NegativeNegativeMckitrick HospitalComment on above:This is a duplicate Adia SARS Antigen (JOSE A) result to be used for statistical tracking purpose only.Casts typing in urine sediment by light microscopyOrdered By: Gilson Castro on 66-87-9256Wajsv LM Nom (Urine sed)None seen [LPF]None SeenMckitrick HospitalCasts typing in urine sediment by light microscopyOrdered By: Colten Fry on 59-14-9982Hmake LM Nom (Urine sed)N/AFThe Bellevue HospitalColor Auto (U)Ordered By: Gilson Castro on 03-48-8624Kvxap (U)YellowYellowMckitrick Hospital Color Auto (U)Ordered By: Colten Fry on 01-35-3500Feohg (U)YellowYellow [facility] HospitalCreatinine and Glomerular filtration rate.predicted panel (S/P/Bld)Ordered By: Gilson Castro on 21-09-9690Jgrdbltxqn [Mass/Vol]0.73 mg/dL0.44-1.03[facility] HospitalCreatinine and Glomerular filtration rate.predicted panel (S/P/Bld)Ordered By: Colten Fry on 69-47-6565Npevajfuog [Mass/Vol]0.82 mg/dL0.44-1.03[facility] HospitalEosinophils Auto (Bld) [#/Vol]Ordered By: Gilson Castro on 08-19-2022 Eosinophils (Bld) [#/Vol]0.0 10*3/uL0.0-0.7FThe [facility]vue Hospital Eosinophils Auto (Bld) [#/Vol]Ordered By: Colten Fry on 97-22-9031Phxybctppde (Bld) [#/Vol]0.0 10*3/uL0.0-0.7FThe Bellevue HospitalEosinophils/100 WBC Auto (Bld)Ordered By: Gilson Castro on 79-18-3070Sfgiurovypk/100 WBC (Bld) 0.2 %.[facility] HospitalEosinophils/100 WBC Auto (Bld)Ordered By: Colten Fry on 08-46-2577Nnofzqkrghj/100 WBC (Bld)0.0 %.[facility] HospitalErythrocyte distribution width Auto (RBC) [Ratio]Ordered By: Gilson Castro on 71-38-5192Hsvezjupyvj distribution width (RBC) [Ratio]14.4 % 11.9-15.3FThe Bellevue HospitalErythrocyte distribution width Auto (RBC) [Ratio]Ordered By: Colten Fry on 91-58-6198Tlgghabasrr distribution width (RBC) [Ratio]14.3 %11.9-15.3FThe [facility]vue HospitalEstimated glomerular filtration rate (GFR) non- AmericanOrdered By: Gilson Castro on 47-85-3293VJX/1.73 sq M.predicted among non-blacks MDRD (S/P/Bld) [Vol rate/Area]> 60 mL/MinFirelands Regional Medical CenterEstimated glomerular filtration rate (GFR) non- AmericanOrdered By: Colten Fry on 26-54-6836VJE/1.73 sq M.predicted among non-blacks MDRD (S/P/Bld) [Vol rate/Area]> 60 mL/MinMckitrick HospitalGlobulin Calc (S) [Mass/Vol]Ordered By: Gilson Castro on 26-17-2235Wgjajqsc (S) [Mass/Vol]2.7 g/dL [facility] HospitalGlobulin Calc (S) [Mass/Vol]Ordered By: Colten Fry on 20-72-9948Ejdbcnsk (S) [Mass/Vol]3.0 g/dLMckitrick HospitalHCG ( test) IA.rapid Ql (U)Ordered By: Gilson Castro on 76-68-4812WGW ( test) Ql (U)NegativeMckitrick Hospital HCG ( test) IA.rapid Ql (U)Ordered By: Colten Fry on 97-78-5328OVN ( test) Ql (U)NegativeMckitrick HospitalHematocrit Auto (Bld) [Volume fraction]Ordered By: Gilson Castro on 37-67-0904Dweovsvumd (Bld) [Volume fraction]40.6 %36.0-46.0[facility] HospitalHematocrit Auto (Bld) [Volume fraction]Ordered By: Colten Fry on 73-22-5125Kvruabtjlb (Bld) [Volume fraction]39.5 %36.0-46.0[facility] HospitalKetones Auto test strip (U) [Mass/Vol]Ordered By: Gilson Castro on 02-23-3218Uwblmxl (U) [Mass/Vol]4+NegativeMckitrick HospitalKetones Auto test strip (U) [Mass/Vol]Ordered By: Colten Fry on 09-40-6180Mvmaxve (U) [Mass/Vol]3+ NegativeMckitrick HospitalLaboratory - Chemistry and Chemistry - challengeOrdered By: Gilson Castro on 15-89-9281Elrugc [Catalytic activity/Vol] 24.0 U/M02-59PareegbmmMckitrick HospitalMagnesium [Mass/Vol]2.0 mg/dL 1.6-2.6FThe Bellevue HospitalLaboratory - Hematology and Cell counts Ordered By: Gilson Castro on 99-47-8535Rjjmqilxl RBC/100 WBC (Bld) [Ratio]0.1 % 0-0.5FTrinity Health System East Campustory - Hematology and Cell counts Ordered By: Colten Fry on 97-16-5467Tbdjstajc RBC/100 WBC (Bld) [Ratio]0.0 % 0-0.5FTrinity Health System East Campustory - UrinalysisOrdered By: Colten Fry on 36-42-3441Fhxkcnc casts LM Ql (Urine sed)None seen [LPF]0-8[facility] HospitalLymphocytes Auto (Bld) [#/Vol]Ordered By: Gilson Castro on 60-19-6305Bzwfnlehusr (Bld) [#/Vol]2.3 10*3/uL1.20-4.8[facility] HospitalLymphocytes Auto (Bld) [#/Vol]Ordered By: Colten Fry on 44-32-8194Qzidcgrcrzr (Bld) [#/Vol]1.0 10*3/uL1.20-4.8[facility] HospitalLymphocytes/100 WBC Auto (Bld)Ordered By: Gilson Castro on 08-19-2022 Lymphocytes/100 WBC (Bld)14.6 %.[facility] HospitalLymphocytes/100 WBC Auto (Bld)Ordered By: Colten Fry on 06-59-2773Abeucvlkbtl/100 WBC (Bld) 7.3 %.[facility] Auto (RBC) [Entitic mass]Ordered By: Gilson Castro on 35-17-0561IVO (RBC) [Entitic mass]27.9 pg25.0-35.0[facility] Auto (RBC) [Entitic mass]Ordered By: Colten rFy on 70-08-6681HVH (RBC) [Entitic mass]27.7 pg25.0-35.0[facility] Auto (RBC) [Mass/Vol]Ordered By: Gilson Castro on 75-47-7524FFZR (RBC) [Mass/Vol]32.6 g/dL31.0-37.0[facility] HospitalHC Auto (RBC) [Mass/Vol]Ordered By: Colten Fry on 62-37-8657XEAS (RBC) [Mass/Vol]32.3 g/dL31.0-37.0[facility] HospitalMCV Auto (RBC) [Entitic vol] Ordered By: Gilson Castro on 21-83-5041APB (RBC) [Entitic vol]85.6 mI56-384 [facility] HospitalMCV Auto (RBC) [Entitic vol]Ordered By: Colten Fry on 09-57-2334SRJ (RBC) [Entitic vol]85.7 oB36-212VofixciplMckitrick HospitalMonocytes Auto (Bld) [#/Vol]Ordered By: Gilson Castro on 24-97-9032Qazrcobmg (Bld) [#/Vol]1.1 10*3/uL0.1-1.00[facility] HospitalMonocytes Auto (Bld) [#/Vol]Ordered By: Colten Fry on 08-19-2022 Monocytes (Bld) [#/Vol]0.3 10*3/uL0.1-1.00[facility] Monocytes/100 WBC Auto (Bld)Ordered By: Gilson Castro on 22-20-6334Nbuvytjta/100 WBC (Bld)7.3 %.[facility] HospitalMonocytes/100 WBC Auto (Bld) Ordered By: Colten Fry on 49-51-5666Edaclmvpn/100 WBC (Bld)2.1 %.[facility] HospitalNeutrophils Auto (Bld) [#/Vol]Ordered By: Gilson Castro on 22-90-6585Npyenzguzaf (Bld) [#/Vol]12.1 10*3/uL1.2-7.7FThe Bellevue HospitalNeutrophils Auto (Bld) [#/Vol]Ordered By: Colten Fry on 89-16-4020Xyntcbrascj (Bld) [#/Vol]12.2 10*3/uL1.2-7.7FThe Bellevue HospitalNeutrophils/100 WBC Auto (Bld)Ordered By: Gilson Castro on 08-19-2022 Neutrophils/100 WBC (Bld)77.7 %.[facility] HospitalNeutrophils/100 WBC Auto (Bld)Ordered By: Colten Fry on 06-88-8862Uekgojcnabr/100 WBC (Bld) 90.2 %.[facility] HospitalNitrite Test strip Ql (U)Ordered By: Gilson Castro on 30-52-6365Rivdlqs Ql (U)NegativeNegativeMckitrick HospitalNitrite Test strip Ql (U)Ordered By: Colten Fry on 08-19-2022 Nitrite Ql (U)NegativeNegFayette County Memorial HospitalNo Panel InformationOrdered By: Gilson Castro on 96-11-8861Uqdzwhmsj GFR ()> 60 mL/MinMckitrick HospitalComment on above:GFR estimated reference range: According to KDOQI guidelines, <60 ml/min/1.73m2 is sufficient todiagnose a patient with chronic kidney disease.Pharmacy Creatinine Clearance (Bvul363.95[facility]> 60 mL/MinMckitrick Hospital2.0 mg/dL1.6-2.6FThe [facility] Hospital24.0 U/L 22-51[facility]121.95[facility] 15.5 10*3/uL4.5-13.5FThe [facility]vue Hospital0.1 %0-0.5FAvita Health System Bucyrus HospitalARS Antigen (LFIA)[facility] HospitalNo Panel InformationOrdered By: Colten Fry on 39-68-1681Fdmw seen [LPF]0-8 [facility] HospitalEstimated GFR ()> 60 mL/Min [facility] HospitalComment on above:GFR estimated reference range: According to KDOQI guidelines, <60 ml/min/1.73m2 is sufficient todiagnose a patient with chronic kidney disease.Pharmacy Creatinine Clearance (Cvwn990.97 [facility]13.5 10*3/uL4.5-13.5FThe [facility]vue Hospital0.0 %0-0.5FThe [facility] Hospital> 60 mL/MinMckitrick Hospital106.97[facility] HospitalPlatelet mean volume Auto (Bld) [Entitic vol]Ordered By: Gilson Castro on 56-72-5043Ucdieymx mean volume (Bld) [Entitic vol]8.8 fL6.3-10.7FThe Bellevue HospitalPlatelet mean volume Auto (Bld) [Entitic vol]Ordered By: Colten Fry on 42-40-0743Wswdmrmo mean volume (Bld) [Entitic vol]8.7 fL6.3-10.7FThe [facility] Hospital Platelets Auto (Bld) [#/Vol]Ordered By: Gilson Castro on 63-23-3395Ayzxumkxc (Bld) [#/Vol]314 10*3/aD793-569UhybtnzddMckitrick HospitalPlatelets Auto (Bld) [#/Vol]Ordered By: Colten Fry on 72-19-9460Fjzfmlgxe (Bld) [#/Vol]258 10*3/sY507-647RchrpyosaMckitrick HospitalProtein Auto test strip (U) [Mass/Vol]Ordered By: Gilson Castro on 01-95-2643Dsyedbw (U) [Mass/Vol]30 mg/dL NegativeMckitrick HospitalProtein Auto test strip (U) [Mass/Vol] Ordered By: Colten Fry on 90-70-3717Oveaqti (U) [Mass/Vol]Trace mg/dLNegative [facility] HospitalProtein [Mass/volume] in Serum or PlasmaOrdered By: Gilson Castro on 17-69-6513Zcmdvoy [Mass/Vol]6.7 g/dL6.1-7.9[facility] HospitalProtein [Mass/volume] in Serum or PlasmaOrdered By: Colten Fry on 21-88-1109Ddudoqp [Mass/Vol]7.5 g/dL6.1-7.9[facility] HospitalRBC Auto (Bld) [#/Vol]Ordered By: Gilson Castro on 02-34-6477SUB (Bld) [#/Vol]4.74 10*6/uL4.10-5.10[facility] HospitalRB Auto (Bld) [#/Vol]Ordered By: Colten Fry on 96-26-6071YMM (Bld) [#/Vol]4.60 10*6/uL4.10-5.10Galion Hospitalerum or plasma alanine aminotransferase measurement without P-5'-P (enzymatic activiOrdered By: Gilson Castro on 07-43-0915TQY No additional P-5'-P [Catalytic activity/Vol]17 U/L 10-60[facility] Hospitalerum or plasma alanine aminotransferase measurement without P-5'-P (enzymatic activiOrdered By: Colten Fry on 12-55-6165VON No additional P-5'-P [Catalytic activity/Vol]16 U/V45-32SoumwqdhzGalion Hospitalerum or plasma albumin/globulin mass ratioOrdered By: Gilson Castro on 12-85-7818Xfyppex/Globulin [Mass ratio]1.5 {ratio}[facility] Hospitalerum or plasma albumin/globulin mass ratioOrdered By: Colten Fry on 73-93-6285Ndjzwrg/Globulin [Mass ratio]1.5 {ratio}[facility] Hospitalerum or plasma alkaline phosphatase measurement (enzymatic activity/volume)Ordered By: Gilson Castro on 22-71-8789YDR [Catalytic activity/Vol]51 U/T19-92HgvlvqizcGalion Hospitalerum or plasma alkaline phosphatase measurement (enzymatic activity/volume)Ordered By: Colten Fry on 49-33-2978VNZ [Catalytic activity/Vol]59 U/L25-58UprhtvlzbGalion Hospitalerum or plasma anion gap determinationOrdered By: Gilson Castro on 78-77-0040Qfnks gap [Moles/Vol]13.8 mmol/L6.0-15.0[facility] or plasma anion gap determinationOrdered By: Colten Fry on 32-99-9438Pumbd gap [Moles/Vol]19.5 mmol/L6.0-15.0[facility] or plasma aspartate aminotransferase measurement (enzymatic activity/volume)Ordered By: Gilson Castro on 97-73-3619KHZ [Catalytic activity/Vol]17 U/H51-29GolpltmsiGalion Hospitalerum or plasma aspartate aminotransferase measurement (enzymatic activity/volume)Ordered By: Colten Fry on 07-29-6128ZUW [Catalytic activity/Vol]20 U/C17-98DppsbjwceGalion Hospitalerum or plasma calcium measurement (mass/volume)Ordered By: Gilson Castro on 95-56-1745Kcblhrj [Mass/Vol]9.1 mg/dL8.2-10.2FAvita Health [facility] Bu[facility] Hospitalerum or plasma calcium measurement (mass/volume)Ordered By: Colten Fry on 30-70-0360Ynqmpmn [Mass/Vol]9.8 mg/dL8.2-10.2FAvita Health System Bucyrus Hospitalerum or plasma chloride measurement (moles/volume) Ordered By: Gilson Castro on 86-26-8314Aflcazmo [Moles/Vol]104 mmol/L95-114 [facility] chloride measurement (moles/volume)Ordered By: Colten Fry on 91-72-1057Pefruukf [Moles/Vol]107 mmol/X32-059JebkctbaaGalion Hospitalerum or plasma creatinine measurement with calculation of estimated glomerular filtrOrdered By: Gilson Castro on 01-76-5516Vdodwnnlqz and Glomerular filtration rate.predicted panel (S/P/Bld)0.73 mg/dL0.44-1.03[facility]erum or plasma creatinine measurement with calculation of estimated glomerular filtrOrdered By: Colten Fry on 37-95-1533Plgfuswldv and Glomerular filtration rate.predicted panel (S/P/Bld)0.82 mg/dL0.44-1.03[facility]erum or plasma glucose measurement (mass/volume)Ordered By: Gilson Castro on 08-19-2022 Glucose [Mass/Vol]108 mg/uC48-034VkpowrkyjMckitrick HospitalComment on above:ADA recommended reference range Random Glucose [...] glucose measurement (mass/volume)Ordered By: Colten Fry on 30-03-3330Psfneeq [Mass/Vol]131 mg/aD69-558KargjjqymMckitrick HospitalComment on above:ADA recommended reference range Random Glucose [...] potassium measurement (moles/volume)Ordered By: Gilson Castro on 35-01-8715Oyqeiyvwk [Moles/Vol]3.1 mmol/L3.5-5.1FAvita Health System Bucyrus Hospitalerum or plasma potassium measurement (moles/volume) Ordered By: Colten Fry on 11-36-5716Gzpsshtlh [Moles/Vol]3.9 mmol/L3.5-5.1 [facility] Hospitalerum or plasma sodium measurement (moles/volume)Ordered By: Gilson Castro on 06-44-8324Efqdfa [Moles/Vol]138 mmol/L057-930PpdsubgrqGalion Hospitalerum or plasma sodium measurement (moles/volume)Ordered By: Colten Fry on 85-41-7351Skjhdk [Moles/Vol]142 mmol/Z048-992QalhshoafGalion Hospitalerum or plasma total bilirubin measurement (mass/volume)Ordered By: Gilson Castro on 04-94-3368Vjuqmdcrk [Mass/Vol]0.5 mg/dL0.3-1.2FAvita Health System Bucyrus Hospitalerum or plasma total bilirubin measurement (mass/volume)Ordered By: Colten Fry on 08-19-2022 Bilirubin [Mass/Vol]0.6 mg/dL0.3-1.2FAvita Health System Bucyrus Hospitalerum or plasma total carbon dioxide measurement (moles/volume)Ordered By: Gilson Castro on 31-60-1711NC4 [Moles/Vol]23.3 mmol/L22.0-30.0[facility] Hospitalerum or plasma total carbon dioxide measurement (moles/volume)Ordered By: Colten Fry on 92-49-0203GO3 [Moles/Vol]19.4 mmol/L22.0-30.0[facility] Hospitalerum or plasma urea nitrogen measurement (mass/volume) Ordered By: Gilson Castro on 50-96-7033Oqfs nitrogen [Mass/Vol]15 mg/dL08-20 [facility] Hospitalerum or plasma urea nitrogen measurement (mass/volume)Ordered By: Colten Fry on 19-22-2872Ehul nitrogen [Mass/Vol]14 mg/dL08-20[facility] Hospitalpecific gravity Auto test strip (U) [Rel density]Ordered By: Gilson Castro on 31-87-3203Lrbgdmoc gravity (U) [Rel density]1.0261.001-1.030[facility] Hospitalpecific gravity Auto test strip (U) [Rel density]Ordered By: Colten Fry on 74-30-4849Dwmjrwia gravity (U) [Rel density]1.0231.001-1.030[facility] Squamous epithelial cells detection in urine sediment by light microscopyOrdered By: Gilson Castro on 85-33-9640Aqwjkaaynl cells.squamous LM Ql (Urine sed)20-30 [HPF]0-[facility] Hospitalquamous epithelial cells detection in urine sediment by light microscopyOrdered By: Colten Fry on 08-19-2022 Epithelial cells.squamous LM Ql (Urine sed)20-30 [HPF]0-[address] [place], [place] [address]Urine bacteria detection by automated methodOrdered By: Gilson Castro on 28-12-2107Jcyxbpro Auto Ql (U)2+None [facility] CenterUrine bacteria detection by automated methodOrdered By: Colten Fry on 25-63-4676Biexrpgj Auto Ql (U)1+None [facility] CenterUrine clarity by refractometry automatedOrdered By: Gilson Castro on 63-33-5315Rltuuip Refractometry automated (U)TurbidCleSelect Medical Specialty Hospital - Cleveland-FairhillUrine clarity by refractometry automatedOrdered By: Colten Fry on 31-64-2047Fczyqoa Refractometry automated (U)CloudyCleSelect Medical Specialty Hospital - Cleveland-FairhillUrine glucose measurement by automated test strip (mass/volume)Ordered By: Gilson Castro on 19-25-7093[place] Auto test strip (U) [Mass/Vol]Normal mg/dLOhiohealth Grove City Methodist HospitalUrine glucose measurement by automated test strip (mass/volume)Ordered By: Colten Fry on 20-79-3456Fearhjc Auto test strip (U) [Mass/Vol]Normal mg/dLSuburban Community Hospital & Brentwood HospitalUrine hemoglobin detection by automated test stripOrdered By: Gilson Castro on 95-91-9181Kiwgpmzmnj Auto test strip Ql (U)NegativeNegativeMckitrick HospitalUrine hemoglobin detection by automated test stripOrdered By: Colten Fry on 55-99-0426Upmyomebhk Auto test strip Ql (U)NegativeNegative [facility] HospitalUrine leukocyte esterase detection by automated test stripOrdered By: Gilson Castro on 89-49-0788Sudvdqpir esterase Auto test strip Ql (U)2+NegativeMckitrick HospitalUrine leukocyte esterase detection by automated test stripOrdered By: Colten Fry on 08-19-2022 Leukocyte esterase Auto test strip Ql (U)1+NegativeMckitrick HospitalUrobilinogen Auto test strip (U) [Mass/Vol]Ordered By: Gilson Castro on 28-40-7833Rfdhitncedqb (U) [Mass/Vol]Normal mg/dLNormDayton Children's HospitalUrobilinogen Auto test strip (U) [Mass/Vol]Ordered By: Colten Fry on 47-19-3144Jtalivrokful (U) [Mass/Vol]Normal mg/dLNormDayton Children's HospitalpH Auto test strip (U)Ordered By: Gilson Castro on 32-20-2373xX (U)8.0 [pH]5.0-9.0M[facility] HospitalpH Auto test strip (U)Ordered By: Colten Fry on 48-60-2787uP (U)6.0 [pH]5.0-9.0[facility] HospitalCOVID-19 SOFIAOrdered By: Joss Rivera on 08-18-2022 SARS-CoV+SARS-CoV-2 (COVID-19) Ag IA.rapid Ql (Resp)NegativeNegativeMckitrick HospitalComment on above:This is a duplicate Adia SARS Antigen (JOSE A) result to be used for statistical tracking purpose only.No Panel InformationOrdered By: Joss Rivera on 43-40-9857TTGB Antigen (LFIA)[facility] HospitalBasophils Auto (Bld) [#/Vol]Ordered By: Modesta Chand on 54-74-1644Rywyhtdrl (Bld) [#/Vol]0.1 10*3/uL0.0-0.1FThe Bellevue HospitalBasophils/100 WBC Auto (Bld)Ordered By: Modesta Chand on 94-00-7553Lcueuhejl/100 WBC (Bld)1.2 %.[facility] HospitalBlood hemoglobin measurement (mass/volume)Ordered By: Modesta Chand on 56-82-1798Msnfrfipjp (Bld) [Mass/Vol]13.8 g/dL12.0-16.0[facility] HospitalBlood leukocytes automated count (number/volume)Ordered By: Modesta Chand on 41-78-3649XSK (Bld) [#/Vol]7.9 10*3/uL4.5-13.5FThe Bellevue HospitalBody fluid albumin measurement (mass/volume)Ordered By: Modesta Chand on 78-73-8581Pmdxqsb (Body fld) [Mass/Vol]4.5 g/dL3.2-5.5 [facility] HospitalCT biopsyOrdered By: Modesta Chand on 68-88-8950Cbhgquoqvdz [Mass/Vol]328 mg/nB897-959ShafvxsdlMckitrick HospitalCreatinine and Glomerular filtration rate.predicted panel (S/P/Bld)Ordered By: Modesta Chand on 85-62-6421Jnylukhmee [Mass/Vol]0.67 mg/dL0.44-1.03 [facility] HospitalEosinophils Auto (Bld) [#/Vol]Ordered By: Modesta Chand on 54-03-4717Lwgpbbditga (Bld) [#/Vol]0.6 10*3/uL0.0-0.7 [facility] HospitalEosinophils/100 WBC Auto (Bld)Ordered By: Modesta Chand on 89-76-2454Jlwlhamrbti/100 WBC (Bld)7.2 %.[facility] HospitalErythrocyte distribution width Auto (RBC) [Ratio]Ordered By: Modesta Chand on 14-65-7473Dnekvsjrxtt distribution width (RBC) [Ratio]13.6 %11.9-15.3FThe Bellevue HospitalEstimated glomerular filtration rate (GFR) non- AmericanOrdered By: Modesta Chand on 54-92-3714QAO/1.73 sq M.predicted among non-blacks MDRD (S/P/Bld) [Vol rate/Area]> 60 mL/MinMckitrick HospitalFerritin [Mass/volume] in Serum or PlasmaOrdered By: Modesta Chand on 36-85-1776Mpkuzwpd [Mass/Vol] 28.5 ng/oV03-582.8[facility] HospitalGlobulin Calc (S) [Mass/Vol] Ordered By: Modesta Chand on 69-34-2866Ktojndwo (S) [Mass/Vol]2.5 g/dL [facility] HospitalHematocrit Auto (Bld) [Volume fraction]Ordered By: Modesta Chand on 82-80-1611Udrtvrjyms (Bld) [Volume fraction]42.3 % 36.0-46.0M[facility] HospitalIron [Mass/volume] in Serum or Plasma Ordered By: Modesta Chand on 00-72-6077Mqkx [Mass/Vol]52 ug/aI35-764 [facility] HospitalIron binding capacity [Mass/volume] in Serum or PlasmaOrdered By: Modesta Chand on 58-44-1814Cuji binding capacity [Mass/Vol]459 ug/tM744-748XydctdzirMckitrick HospitalIron saturation [Mass Fraction] in Serum or PlasmaOrdered By: Modesta Chand on 16-20-9443Dkmy saturation [Mass fraction]11.0 %20-50[facility] HospitalLaboratory - Hematology and Cell countsOrdered By: Modesta Chand on 06-25-2022 Nucleated RBC/100 WBC (Bld) [Ratio]0.0 %0-0.5FThe Bellevue Hospital Lymphocytes Auto (Bld) [#/Vol]Ordered By: Modesta Chand on 06-25-2022 Lymphocytes (Bld) [#/Vol]2.1 10*3/uL1.20-4.8[facility] Lymphocytes/100 WBC Auto (Bld)Ordered By: Modesta Chand on 06-25-2022 Lymphocytes/100 WBC (Bld)26.9 %.[facility] Auto (RBC) [Entitic mass]Ordered By: Modesta Chand on 69-16-3415PJJ (RBC) [Entitic mass]28.1 pg25.0-35.0[facility] HospitalMC Auto (RBC) [Mass/Vol] Ordered By: Modesta Chand on 35-51-9049VYVF (RBC) [Mass/Vol]32.7 g/dL 31.0-37.0M[facility] HospitalMCV Auto (RBC) [Entitic vol]Ordered By: Modesta Chand on 53-14-9019VCD (RBC) [Entitic vol]85.8 tP94-004 [facility] HospitalMonocytes Auto (Bld) [#/Vol]Ordered By: Modesta Chand on 94-62-5505Slselrrxe (Bld) [#/Vol]0.6 10*3/uL0.1-1.00 [facility] HospitalMonocytes/100 WBC Auto (Bld)Ordered By: Modesta Chand on 19-07-4111Xxgzbsapm/100 WBC (Bld)7.2 %.[facility] HospitalNeutrophils Auto (Bld) [#/Vol]Ordered By: Modesta Chand on 13-40-7486Gjwkduyqjju (Bld) [#/Vol]4.5 10*3/uL1.2-7.7FThe Bellevue HospitalNeutrophils/100 WBC Auto (Bld)Ordered By: Modesta Chand on 78-84-9272Foxpuywuyvi/100 WBC (Bld)57.5 %.[facility] HospitalNo Panel InformationOrdered By: Modesta Chand on 99-36-910642640272-Nsieold Vitamin D Total35.9 ng/xN78-644VxalinsybMckitrick HospitalComment on above: VITAMIN D STATUS 25(OH)VITAMIN D RANGE (ng/mL) Deficient <20 Insufficient 20 to <30 Sufficient 30 to 100 Reference: Danica MF,Chayo NC, Sony GUERRERO, et al. Evaluation,treatment, and prevention of vitamin D deficiency; an Endocrine Society clinical practice guideline. JCEM. 2010; 96(7):1911-30.Absolute Reticulocyte Count0.066 10*6/uL0.024-0.084[facility] Estimated GFR ()> 60 mL/MinMckitrick Hospital Comment on above:GFR estimated reference range: According to KDOQI guidelines, <60 ml/min/1.73m2 is sufficient todiagnose a patient with chronic kidney disease.Percent Reticulocyte Count1.3 %0.5-1.5FThe [facility] Creatinine Clearance (ChemN/AFThe Bellevue HospitalPlatelet mean volume Auto (Bld) [Entitic vol]Ordered By: Modesta Chand on 39-50-1463Rmhbgnso mean volume (Bld) [Entitic vol]9.0 fL6.3-10.7FThe Bellevue HospitalPlatelets Auto (Bld) [#/Vol]Ordered By: Modesta Chand on 09-66-6642Julxtbkpk (Bld) [#/Vol]263 10*3/dD392-755PhumfdwqrMckitrick HospitalProtein [Mass/volume] in Serum or PlasmaOrdered By: Modesta Chand on 37-24-8712Dcrzpvd [Mass/Vol]7.0 g/dL6.1-7.9[facility] HospitalRBC Auto (Bld) [#/Vol]Ordered By: Modesta Chand on 97-03-9128KEG (Bld) [#/Vol]4.94 10*6/uL4.10-5.10[facility] Hospitalerum or plasma alanine aminotransferase measurement without P-5'-P (enzymatic activiOrdered By: Modesta Chand on 98-48-7322FWQ No additional P-5'-P [Catalytic activity/Vol]18 U/V55-12SwfngknmwGalion Hospitalerum or plasma albumin/globulin mass ratioOrdered By: Modesta Chand on 51-81-1656Ecwimkx/Globulin [Mass ratio]1.8 {ratio}[facility] Hospitalerum or plasma alkaline phosphatase measurement (enzymatic activity/volume)Ordered By: Modesta Chand on 61-87-7448ZEW [Catalytic activity/Vol]65 U/Z07-07QbxrpzgxpGalion Hospitalerum or plasma aspartate aminotransferase measurement (enzymatic activity/volume)Ordered By: Modesta Chand on 09-56-5031KGW [Catalytic activity/Vol]18 U/L10-42 [facility] Hospitalerum or plasma calcium measurement (mass/volume)Ordered By: Modesta Chand on 17-64-8759Ltllbtz [Mass/Vol]10.2 mg/dL8.2-10.2FAvita Health System Bucyrus Hospitalerum or plasma chloride measurement (moles/volume)Ordered By: Modesta Chand on 95-26-9549Yvwusxvd [Moles/Vol]102 mmol/K91-536JstcpbpkkGalion Hospitalerum or plasma glucose measurement (mass/volume)Ordered By: Modesta Chand on 06-25-2022 Glucose [Mass/Vol]87 mg/sU79-381EbmwxlfmqMckitrick HospitalComment on above:ADA recommended reference range Random Glucose Reference Range is dependent on time and content of last meal. Glucose of more than 200 mg/dL in a nonstressed, ambulatory subject supports the diagnosis of Diabetes Mellitus.Serum or plasma potassium measurement (moles/volume)Ordered By: Modesta Chand on 55-37-0063Shkaahhjs [Moles/Vol] 4.4 mmol/L3.5-5.1FAvita Health System Bucyrus Hospitalerum or plasma sodium measurement (moles/volume)Ordered By: Modesta Chand on 98-46-7119Qsbezr [Moles/Vol]137 mmol/Q979-571IprgyoiakGalion Hospitalerum or plasma total bilirubin measurement (mass/volume)Ordered By: Modesta Chand on 32-14-9978Bmnnwmdxh [Mass/Vol]0.4 mg/dL0.3-1.2FThe [facility] Hospital Serum or plasma total carbon dioxide measurement (moles/volume)Ordered By: Modesta Chand on 25-63-5401WB9 [Moles/Vol]23.8 mmol/L22.0-30.0[facility] Hospitalerum or plasma urea nitrogen measurement (mass/volume) Ordered By: Modesta Chand on 99-88-3804Dvvw nitrogen [Mass/Vol]14 mg/dL 9-23M[facility] HospitalTS DL <= 0.005 mIU/L QnOrdered By: Modesta Chand on 32-23-6674UNP Qn1.05 m[IU]/L0.45-5.33[facility] HospitalThyroxine (T4) free [Mass/volume] in Serum or PlasmaOrdered By: Modesta Chand on 13-80-1685Xkph T4 [Mass/Vol]0.74 ng/dL0.61-1.12[facility] HospitalHCG ( test) IA.rapid Ql (U)Ordered By: Brennen Britt on 75-25-8612BLG ( test) Ql (U)NegativeMckitrick HospitalCOVID-19 Positive/NegativeOrdered By: Brennen Britt on 06-07-2022 SARS-CoV-2 (COVID-19) N gene JANAK+probe Ql (Resp)NegativeNegativeMckitrick HospitalComment on above:Testing for SARS-CoV-2 by RT-PCR This test was developed and its performance characteristics determined by [employer] ([employer] and validated at the [facility]. This test has not been FDA [...] Serum or PlasmaOrdered By: Modesta Chand on 87-15-2473Itktdpt [Mass/Vol]3.9 g/dL3.2-5.5FThe Bellevue HospitalBasophils Auto (Bld) [#/Vol]Ordered By: Modesta Chand on 01-82-4395Dfvomqcxt (Bld) [#/Vol]0.1 10*3/uL0.0-0.1FThe Bellevue HospitalBasophils/100 WBC Auto (Bld)Ordered By: Modesta Chand on 39-00-2960Xxkyccfus/100 WBC (Bld)1.1 %.[facility] HospitalBlood hemoglobin measurement (mass/volume)Ordered By: Modesta Chand on 82-08-0859Ncfdcceijq (Bld) [Mass/Vol]13.6 g/dL12.0-16.0[facility] HospitalBlood leukocytes automated count (number/volume)Ordered By: Modesta Chand on 54-00-4045TCX (Bld) [#/Vol]10.6 10*3/uL4.5-13.5FThe Bellevue HospitalC reactive protein [Mass/volume] in Serum or Plasma Ordered By: Modesta Chand on 32-70-8902MWT [Mass/Vol]0.6 mg/dL0.0-1.0 [facility] HospitalCT biopsyOrdered By: Modesta Chand on 27-54-5987Nxbzgcwwyhy [Mass/Vol]292 mg/jV481-755VjhrhmyibMckitrick HospitalCreatinine and Glomerular filtration rate.predicted panel (S/P/Bld)Ordered By: Modesta Chand on 35-57-0437Cvcfjpgklb [Mass/Vol]0.63 mg/dL0.44-1.03 [facility] HospitalEosinophils Auto (Bld) [#/Vol]Ordered By: Modesta Chand on 00-39-4473Gvfpfmiwokx (Bld) [#/Vol]0.4 10*3/uL0.0-0.7 [facility] HospitalEosinophils/100 WBC Auto (Bld)Ordered By: Modesta Chand on 96-01-8735Aupznafpsho/100 WBC (Bld)3.6 %.[facility] HospitalErythrocyte distribution width Auto (RBC) [Ratio]Ordered By: Modesta Chand on 93-40-9666Otzbszmneuw distribution width (RBC) [Ratio]13.7 %11.9-15.3FThe Bellevue HospitalErythrocyte sedimentation rate by Photometric methodOrdered By: Modesta Chand on 74-14-3898KIQ Photometric method (Bld) [Velocity]5 mm/hr0-19[facility] Estimated glomerular filtration rate (GFR) non- AmericanOrdered By: Modesta Chand on 33-04-1128CIQ/1.73 sq M.predicted among non-blacks MDRD (S/P/Bld) [Vol rate/Area]> 60 mL/MinMckitrick HospitalFerritin [Mass/volume] in Serum or PlasmaOrdered By: Modesta Chand on 05-26-2022 Ferritin [Mass/Vol]14.2 ng/mQ71-561.8[facility] HospitalFolate [Mass/volume] in Serum or PlasmaOrdered By: Modesta Chand on 05-26-2022 Folate [Mass/Vol]13.0 ng/mL>5.9[facility] HospitalComment on above:Folate reference range: >5.9 ng/ml The WHO technical consultation on folate and vitamin b12 deficiencies has determined that folate concentrations less than 4 ng/ml are considered deficient.Globulin Calc (S) [Mass/Vol]Ordered By: Modesta Chand on 97-91-9296Okayrggg (S) [Mass/Vol]2.3 g/dLMckitrick HospitalGlucose mean value [Mass/volume] in Blood Estimated from glycated hemoglobinOrdered By: Modesta Chand on 53-29-1903Qwdzalq glucose Estimated from glycated hemoglobin (Bld) [Mass/Vol]111 mg/dLMckitrick HospitalHematocrit Auto (Bld) [Volume fraction]Ordered By: Modesta Chand on 66-05-5078Edxnhdkxbm (Bld) [Volume fraction]41.4 %36.0-46.0 [facility] HospitalHemoglobin A1c percentageOrdered By: Modesta Chand on 00-69-4123IaI3e (Bld) [Mass fraction]5.5 %4.3-5.6FThe Bellevue HospitalComment on above:Increased risk for diabetes: 5.7 - 6.4 diabetes: >6.4 glycemic control for adults with diabetes: <7.0Iron [Mass/volume] in Serum or PlasmaOrdered By: Modesta Chand on 44-07-7074Zeep [Mass/Vol]63 ug/wY13-492 [facility] HospitalIron binding capacity [Mass/volume] in Serum or PlasmaOrdered By: Modesta Chand on 35-65-2608Phtv binding capacity [Mass/Vol]409 ug/rT382-346MmkcuetcpMckitrick HospitalIron saturation [Mass Fraction] in Serum or PlasmaOrdered By: Modesta Chand on 43-85-5730Xvxb saturation [Mass fraction]15.0 %20-50[facility] HospitalLaboratory - Chemistry and Chemistry - challengeOrdered By: Modesta Chand on 86-20-9300Uxfnlyqtx (Vitamin B12) [Mass/Vol]329 pg/dB977-997MagxczshrMckitrick HospitalLaboratory - Hematology and Cell countsOrdered By: Modesta Chand on 59-05-4141Lbgwcbvte RBC/100 WBC (Bld) [Ratio]0.0 %0-0.5FThe Bellevue HospitalLymphocytes Auto (Bld) [#/Vol]Ordered By: Modesta Chand on 25-60-1416Bybavejlfre (Bld) [#/Vol]2.3 10*3/uL1.20-4.8[facility] HospitalLymphocytes/100 WBC Auto (Bld)Ordered By: Modesta Chand on 12-88-9658Uqfodravfjw/100 WBC (Bld)21.6 %.[facility] HospitalMCH Auto (RBC) [Entitic mass]Ordered By: Modesta Chand on 56-47-3118EUK (RBC) [Entitic mass]28.6 pg25.0-35.0[facility] HospitalMCHC Auto (RBC) [Mass/Vol]Ordered By: Modesta Chand on 05-26-2022 MCHC (RBC) [Mass/Vol]33.0 g/dL31.0-37.0[facility] HospitalMCV Auto (RBC) [Entitic vol]Ordered By: Modesta Chand on 95-83-8928UTN (RBC) [Entitic vol]86.6 pX94-568TswuxqjsaMckitrick HospitalMonocytes Auto (Bld) [#/Vol]Ordered By: Modesta Chand on 99-19-2971Jvkwtenbm (Bld) [#/Vol]0.6 10*3/uL0.1-1.00[facility] HospitalMonocytes/100 WBC Auto (Bld) Ordered By: Modesta Chand on 05-03-9503Wxqnhmvsp/100 WBC (Bld)5.9 %. [facility] HospitalNeutrophils Auto (Bld) [#/Vol]Ordered By: Modesta Chand on 78-63-4328Eeiagsnjfew (Bld) [#/Vol]7.2 10*3/uL1.2-7.7 [facility] HospitalNeutrophils/100 WBC Auto (Bld)Ordered By: Modesta Chand on 07-89-3748Slhlxehrsvo/100 WBC (Bld)67.8 %.[facility] HospitalNo Panel InformationOrdered By: Modesta Chand on 73-57-652696465869-Cukmhla Vitamin D Total26.9 ng/wO51-240HjponxidpMckitrick HospitalComment on above:VITAMIN D STATUS 25(OH)VITAMIN D RANGE (ng/mL) Deficient <20 Insufficient 20 to <30 Sufficient 30 to 100 Reference: Danica MF,Chayo WOORDUFF, Sony GUERRERO, et al. Evaluation,treatment, and prevention of vitamin D deficiency; an Endocrine Society clinical practice guideline. JCEM. 2010; 96(7):1911-30.Estimated GFR ()> 60 mL/MinMckitrick HospitalComment on above: GFR estimated reference range: According to KDOQI guidelines, <60 ml/min/1.73m2 is sufficient todiagnose a patient with chronic kidney disease.Pharmacy Creatinine Clearance (ChemN/AFThe Bellevue HospitalPlatelet mean volume Auto (Bld) [Entitic vol]Ordered By: Modesta Chand on 05-26-2022 Platelet mean volume (Bld) [Entitic vol]8.9 fL6.3-10.7FThe Bellevue HospitalPlatelets Auto (Bld) [#/Vol]Ordered By: Modesta Chand on 05-26-2022 Platelets (Bld) [#/Vol]286 10*3/cB301-069NeigscodoMckitrick Hospital Protein [Mass/volume] in Serum or PlasmaOrdered By: Modesta Chand on 37-97-3895Dadupkm [Mass/Vol]6.2 g/dL6.1-7.9[facility] HospitalRBC Auto (Bld) [#/Vol]Ordered By: Modesta Chand on 88-01-0223UMP (Bld) [#/Vol] 4.78 10*6/uL4.10-5.10[facility] Hospitalerum nuclear antibody titerOrdered By: Modesta Chand on 56-09-2800Mwmcunv Ab (S) [Titer]Negative .[facility] HospitalComment on above:Negative <1:80 Borderline 1:80 Positive >1:80 ICAP nomenclature: AC-0 For more information about Hep-2 cell patterns use ANApatterns.org, the official website for the International Consensus on Antinuclear Antibody (EDMOND) Patterns (ICAP). Performed at: [email or web address] [id number] [employer]: James Nelson PhD, Phone: [phone] or plasma alanine aminotransferase measurement without P-5'-P (enzymatic activiOrdered By: Modesta Chand on 83-17-6853DDF No additional P-5'-P [Catalytic activity/Vol]50 U/L57-81PdbgxrpnwGalion Hospitalerum or plasma albumin/globulin mass ratioOrdered By: Modesta Chand on 05-26-2022 Albumin/Globulin [Mass ratio]1.7 {ratio}[facility] Hospitalerum or plasma alkaline phosphatase measurement (enzymatic activity/volume)Ordered By: Modesta Chand on 59-82-5058LGM [Catalytic activity/Vol]58 U/L32-92 [facility] Hospitalerum or plasma aspartate aminotransferase measurement (enzymatic activity/volume)Ordered By: Modesta Chand on 13-11-5634YAK [Catalytic activity/Vol]25 U/E05-21NfbnykxmkGalion Hospitalerum or plasma calcium measurement (mass/volume)Ordered By: Modesta Chand on 86-84-3812Pdgybyp [Mass/Vol]9.3 mg/dL8.2-10.2FAvita Health System Bucyrus Hospitalerum or plasma chloride measurement (moles/volume)Ordered By: Modesta Chand on 47-46-6312Jifpdiqx [Moles/Vol]103 mmol/M78-339RnlnhwqgkGalion Hospitalerum or plasma glucose measurement (mass/volume)Ordered By: Modesta Chand on 13-40-6047Etdpexb [Mass/Vol]111 mg/hF25-538NhttkfixzMckitrick HospitalComment on above:ADA recommended reference range Random Glucose Reference Range is dependent on time and content of last meal. Glucose of more than 200 mg/dL in a nonstressed, ambulatory subject supports the diagnosis of Diabetes Mellitus.Serum or plasma potassium measurement (moles/volume)Ordered By: Modesta Chand on 84-83-0504Yucbtcshb [Moles/Vol] 4.3 mmol/L3.5-5.1FAvita Health System Bucyrus Hospitalerum or plasma sodium measurement (moles/volume)Ordered By: Modesta Chand on 37-54-8709Qvpyih [Moles/Vol]137 mmol/V343-182IolvdmxcnGalion Hospitalerum or plasma total bilirubin measurement (mass/volume)Ordered By: Modesta Chand on 59-73-7669Egowujjfs [Mass/Vol]0.5 mg/dL0.3-1.2FThe [facility] Hospital Serum or plasma total carbon dioxide measurement (moles/volume)Ordered By: Modesta Chand on 96-40-4925LZ2 [Moles/Vol]24.9 mmol/L22.0-30.0[facility] Hospitalerum or plasma urea nitrogen measurement (mass/volume) Ordered By: Modesta Chand on 90-31-3302Dzhp nitrogen [Mass/Vol]9 mg/dL9-23 [facility] HospitalUrine culture routineOrdered By: Gilson Castro on 75-39-8864Rdqphjbk identified Cx Nom (U)2 DaysMckitrick HospitalAmphetamine Screen Ql (U)Ordered By: Gilson Castro on 05-16-2022 Amphetamines Ql (U)NegativeNegativeMckitrick HospitalAutomated erythrocytes count in urine sediment (number/area)Ordered By: Gilson Castro on 13-93-1203IBB Auto (Urine sed) [#/Area]3-4 [HPF]0-4FThe Bellevue HospitalAutomated leukocytes count in urine sediment (number/area)Ordered By: Gilson Castro on 27-63-9193VFD Auto (Urine sed) [#/Area]5-9 [HPF]0-4FThe Bellevue HospitalAutomated urine hyaline casts count (number/volume) Ordered By: Gilson Castro on 31-65-8564Zhwlgwf casts Auto (U) [#/Vol]None seen [LPF]0-1FThe Bellevue HospitalBarbiturates [Presence] in UrineOrdered By: Gilson Castro on 48-11-9248Irsnvxcpfpgi Ql (U)PositiveNegFayette County Memorial HospitalBasophils Auto (Bld) [#/Vol]Ordered By: Gilson Castro on 73-74-3308Rubmjrutl (Bld) [#/Vol]0.0 10*3/uL0.0-0.1FThe Bellevue HospitalBasophils/100 WBC Auto (Bld)Ordered By: Gilson Castro on 05-16-2022 Basophils/100 WBC (Bld)0.4 %.[facility] HospitalBenzodiazepines [Presence] in UrineOrdered By: Gilson Castro on 89-40-4451Eyxhykvyznkxvaa Ql (U) NegativeNegFayette County Memorial HospitalBilirubin Test strip Ql (U) Ordered By: Gilson Castro on 53-76-2489Bbnqtyrsk Ql (U)NegativeNegFayette County Memorial HospitalBlood hemoglobin measurement (mass/volume)Ordered By: Gilson Castro on [id number] (Bld) [Mass/Vol]13.4 g/dL12.0-16.0 [facility] HospitalBlood leukocytes automated count (number/volume)Ordered By: Gilson Castro on [id number] (Bld) [#/Vol]10.0 10*3/uL4.5-13.5FThe Bellevue HospitalBody fluid albumin measurement (mass/volume)Ordered By: Gilson Castro on 09-96-1496[place]loguez (Body fld) [Mass/Vol]4.3 g/dL3.2-5.5FThe Bellevue HospitalCannabinoids [Presence] in Urine by Screen methodOrdered By: Gilson Castro on 05-16-2022 Cannabinoids Screen Ql (U)PositiveNegFayette County Memorial Hospital Comment on above:These are unconfirmed results and should not be used for legal purposes. Drug Cut-Off Concentration: AMPH 1000 ng/mL NIKOLAS 200 ng/mL SHRAVAN 200 ng/mL COCM 300 ng/mL OP 300 ng/mL PCP 25 ng/mL THC 20 ng/mLCasts typing in urine sediment by light microscopyOrdered By: Gilson Castro on 12-18-8515Fbwsv LM Nom (Urine sed)None seen [LPF]None SeenMckitrick HospitalColor Auto (U)Ordered By: Gilson Castro on 05-16-2022 Color (U)YellowYellowMckitrick HospitalCreatinine and Glomerular filtration rate.predicted panel (S/P/Bld)Ordered By: Gilson Castro on 05-16-2022 Creatinine [Mass/Vol]0.80 mg/dL0.44-1.03[facility] Eosinophils Auto (Bld) [#/Vol]Ordered By: Gilson Castro on 02-66-2557Ongcrehtoxj (Bld) [#/Vol]0.1 10*3/uL0.0-0.7FThe Bellevue HospitalEosinophils/100 WBC Auto (Bld)Ordered By: Gilson aCstro on 21-18-6800Hxjpdhhjrur/100 WBC (Bld) 0.7 %.[facility] HospitalErythrocyte distribution width Auto (RBC) [Ratio]Ordered By: Gilson Castro on 05-03-9664Xvgxgcxovpg distribution width (RBC) [Ratio]13.4 %11.9-15.3FThe Bellevue HospitalEstimated glomerular filtration rate (GFR) non- AmericanOrdered By: Gilson Castro on 15-06-9906NMF/1.73 sq M.predicted among non-blacks MDRD (S/P/Bld) [Vol rate/Area]> 60 mL/MinMckitrick HospitalGlobulin Calc (S) [Mass/Vol]Ordered By: Gilson Castro on 23-94-8829Aqjjrtcy (S) [Mass/Vol]2.7 g/dL [facility] HospitalHCG ( test) IA.rapid Ql (U)Ordered By: Gilson Castro on 63-42-6573ZGN ( test) Ql (U)NegativeMckitrick HospitalHematocrit Auto (Bld) [Volume fraction]Ordered By: Gilson Castro on 60-13-8056Jeuimkskjt (Bld) [Volume fraction]39.4 %36.0-46.0M[facility] HospitalKetones Auto test strip (U) [Mass/Vol]Ordered By: Gilson Castro on 75-14-0588Gqfqagj (U) [Mass/Vol]3+NegativeMckitrick HospitalLaboratory - Chemistry and Chemistry - challengeOrdered By: Gilson Castro on 62-48-9909Ivcqcd [Catalytic activity/Vol]26.0 U/L95-03UlrwlmkxpMckitrick HospitalLaboratory - Drug toxicologyOrdered By: Gilson Castro on 70-03-6474Zcdzhlb Ql (U)NegativeNegativeMckitrick Hospital Laboratory - Hematology and Cell countsOrdered By: Gilson Castro on 05-16-2022 Nucleated RBC/100 WBC (Bld) [Ratio]0.0 %0-0.5FThe Bellevue Hospital Lymphocytes Auto (Bld) [#/Vol]Ordered By: Gilson Castro on 15-08-0735Hcqowidycvp (Bld) [#/Vol]1.9 10*3/uL1.20-4.8[facility] Lymphocytes/100 WBC Auto (Bld)Ordered By: Gilson Castro on 05-16-2022 Lymphocytes/100 WBC (Bld)18.7 %.[facility] Auto (RBC) [Entitic mass]Ordered By: Gilson Castro on 06-36-3804ESW (RBC) [Entitic mass] 28.6 pg25.0-35.0M[facility] HospitalMCHC Auto (RBC) [Mass/Vol] Ordered By: Gilson Castro on 21-72-2008XLSS (RBC) [Mass/Vol]34.1 g/dL31.0-37.0 [facility] HospitalMCV Auto (RBC) [Entitic vol]Ordered By: Gilson Castro on 25-31-4698XZD (RBC) [Entitic vol]84.0 oI36-961AvbszeinkMckitrick HospitalMonocytes Auto (Bld) [#/Vol]Ordered By: Gilson Castro on 16-10-5589Uebjpgkgt (Bld) [#/Vol]0.9 10*3/uL0.1-1.00[facility] HospitalMonocytes/100 WBC Auto (Bld)Ordered By: Gilson Castro on 05-16-2022 Monocytes/100 WBC (Bld)9.2 %.[facility] HospitalNeutrophils Auto (Bld) [#/Vol]Ordered By: Gilson Castro on 83-80-7293Iixhobmckbw (Bld) [#/Vol]7.1 10*3/uL1.2-7.7FThe Bellevue HospitalNeutrophils/100 WBC Auto (Bld) Ordered By: Gilson Castro on 55-68-7568Kppjuawjxoe/100 WBC (Bld)71.0 %.[facility] HospitalNitrite Test strip Ql (U)Ordered By: Gilson Castro on 63-72-2135Mvuykqc Ql (U)NegativeNegativeMckitrick HospitalNo Panel InformationOrdered By: Gilson Castro on 06-34-5356Vzvaftuzn GFR ()> 60 mL/MinMckitrick HospitalComment on above:GFR estimated reference range: According to KDOQI guidelines, <60 ml/min/1.73m2 is sufficient todiagnose a patient with chronic kidney disease.Pharmacy Creatinine Clearance (Etdx669.65M[facility]rick HospitalPhencyclidine Screen Ql (U)Ordered By: Gilson Castro on 34-64-3913Ialvzceprfwrh Ql (U)NegativeNegative [facility] HospitalPlatelet mean volume Auto (Bld) [Entitic vol] Ordered By: Gilson Castro on 08-88-2590Ndazqyfw mean volume (Bld) [Entitic vol] 8.5 fL6.3-10.7FThe Bellevue HospitalPlatelets Auto (Bld) [#/Vol] Ordered By: Gilson Castro on 80-48-2906Ysnugncht (Bld) [#/Vol]241 10*3/jU168-774 [facility] HospitalProtein Auto test strip (U) [Mass/Vol]Ordered By: Gilson Castro on 01-07-9172Movjjbc (U) [Mass/Vol]Trace mg/dLNegative [facility] HospitalProtein [Mass/volume] in Serum or PlasmaOrdered By: Gilson Castro on 78-11-4448Mkncvhd [Mass/Vol]7.0 g/dL6.1-7.9M[facility] HospitalRBC Auto (Bld) [#/Vol]Ordered By: Gilson Castro on 54-25-8852DHI (Bld) [#/Vol]4.69 10*6/uL4.10-5.10[facility] Hospitalerum or plasma alanine aminotransferase measurement without P-5'-P (enzymatic activiOrdered By: Gilson Castro on 94-70-7604FOI No additional P-5'-P [Catalytic activity/Vol]23 U/G03-35IgxdhnhjqGalion Hospitalerum or plasma albumin/globulin mass ratioOrdered By: Gilson Castro on 05-16-2022 Albumin/Globulin [Mass ratio]1.6 {ratio}[facility] Hospitalerum or plasma alkaline phosphatase measurement (enzymatic activity/volume)Ordered By: Gilson Castro on 07-22-2058FVS [Catalytic activity/Vol]58 U/C83-80DxwysackfGalion Hospitalerum or plasma aspartate aminotransferase measurement (enzymatic activity/volume)Ordered By: Gilson Castro on 11-93-9693MSH [Catalytic activity/Vol]22 U/Q31-61HmierkscnGalion Hospitalerum or plasma calcium measurement (mass/volume)Ordered By: Gilson Castro on 25-81-9287Ujbakhl [Mass/Vol]9.2 mg/dL8.2-10.2FAvita Health System Bucyrus Hospitalerum or plasma chloride measurement (moles/volume)Ordered By: Gilson Castro on 05-16-2022 Chloride [Moles/Vol]97 mmol/K15-641PznoqoljjGalion Hospitalerum or plasma glucose measurement (mass/volume)Ordered By: Gilson Castro on 05-16-2022 Glucose [Mass/Vol]90 mg/kL43-942QxzxalgrlMckitrick HospitalComment on above:ADA recommended reference range Random Glucose Reference Range is dependent on time and content of last meal. Glucose of more than 200 mg/dL in a nonstressed, ambulatory subject supports the diagnosis of Diabetes Mellitus.Serum or plasma potassium measurement (moles/volume)Ordered By: Gilson Castro on 64-94-3720Uaycvcffx [Moles/Vol]3.2 mmol/L3.5-5.1FAvita Health System Bucyrus Hospitalerum or plasma sodium measurement (moles/volume)Ordered By: Gilson Castro on 92-66-7329Lgwjgw [Moles/Vol]135 mmol/Z265-022NajjyfhaiGalion Hospitalerum or plasma total bilirubin measurement (mass/volume)Ordered By: Gilson Castro on 04-97-1537Shmecgqqb [Mass/Vol]1.0 mg/dL0.3-1.2FAvita Health System Bucyrus Hospitalerum or plasma total carbon dioxide measurement (moles/volume)Ordered By: Gilson Castro on 94-17-0007HM7 [Moles/Vol]24.6 mmol/L22.0-30.0[facility] Serum or plasma urea nitrogen measurement (mass/volume)Ordered By: Gilson Castro on 39-81-8650Usjv nitrogen [Mass/Vol]23 mg/dL9-23Galion Hospitalpecific gravity Auto test strip (U) [Rel density]Ordered By: Gilson Castro on 09-83-1382Aaerhprs gravity (U) [Rel density]1.0231.001-1.030 [facility] Hospitalquamous epithelial cells detection in urine sediment by light microscopyOrdered By: Gilson Castro on 44-30-9848Sjqvimybeb cells.squamous LM Ql (Urine sed)20-30 [HPF]0-2FThe Bellevue Hospital Urine bacteria detection by automated methodOrdered By: Gilson Castro on 08-60-9779Zwafezba Auto Ql (U)1+None SeenMckitrick HospitalUrine clarity by refractometry automatedOrdered By: Gilson Castro on 90-23-6849Idhxpcf Refractometry automated (U)TurbidCleSelect Medical Specialty Hospital - Cleveland-FairhillUrine cocaine detectionOrdered By: Gilson Castro on 88-29-8061Vltltmw Ql (U)Negative NegativeMckitrick HospitalUrine glucose measurement by automated test strip (mass/volume)Ordered By: Gilson Castro on 95-58-6246Bdagvtd Auto test strip (U) [Mass/Vol]Normal mg/dLNormalMckitrick HospitalUrine hemoglobin detection by automated test stripOrdered By: Gilson Castro on 11-78-6015Etjplpkpfw Auto test strip Ql (U)NegativeNegativeMckitrick HospitalUrine leukocyte esterase detection by automated test stripOrdered By: Gilson Castro on 80-95-6110Zaavriiuq esterase Auto test strip Ql (U)2+ NegativeMckitrick HospitalUrobilinogen Auto test strip (U) [Mass/Vol]Ordered By: Gilson Castro on 21-27-0579Wrecpceljgto (U) [Mass/Vol] Normal mg/dLNormalMckitrick HospitalpH Auto test strip (U)Ordered By: Gilson Castro on 57-09-7550bL (U)8.0 [pH]5.0-9.0[facility] HospitalAlbumin [Mass/volume] in Serum or PlasmaOrdered By: Art Bianchi on 92-10-6873Wpqwbdo [Mass/Vol]4.7 g/dL3.2-5.5FThe [facility] Hospital Basophils Auto (Bld) [#/Vol]Ordered By: Art Bianchi on 24-91-2107Kmwbmmuur (Bld) [#/Vol]0.0 10*3/uL0.0-0.1FThe Bellevue HospitalBasophils/100 WBC Auto (Bld)Ordered By: Art Bianchi on 16-58-0748Sfemhhqsy/100 WBC (Bld)0.2 %. [facility] HospitalBlood hemoglobin measurement (mass/volume) Ordered By: Art Bianchi on 52-80-7159Djrbwfqtde (Bld) [Mass/Vol]13.6 g/dL 12.0-16.0[facility] HospitalBlood leukocytes automated count (number/volume)Ordered By: Art Bianchi on 01-65-8727GCQ (Bld) [#/Vol]14.0 10*3/uL4.5-13.5FThe Bellevue HospitalCreatinine and Glomerular filtration rate.predicted panel (S/P/Bld)Ordered By: Art Bianchi on 05-15-2022 Creatinine [Mass/Vol]0.76 mg/dL0.44-1.03[facility] Eosinophils Auto (Bld) [#/Vol]Ordered By: Art Bianchi on 45-97-4749Gfedshksyqn (Bld) [#/Vol]0.0 10*3/uL0.0-0.7FThe Bellevue HospitalEosinophils/100 WBC Auto (Bld)Ordered By: Art Bianchi on 84-99-5229Cokpivpdflk/100 WBC (Bld)0.4 %.[facility] HospitalErythrocyte distribution width Auto (RBC) [Ratio]Ordered By: Art Bianchi on 35-97-2897Ojgbndzfskc distribution width (RBC) [Ratio]13.7 %11.9-15.3FThe Bellevue HospitalEstimated glomerular filtration rate (GFR) non- AmericanOrdered By: Art Bianchi on 05-15-2022 GFR/1.73 sq M.predicted among non-blacks MDRD (S/P/Bld) [Vol rate/Area]> 60 mL/MinMckitrick HospitalGlobulin Calc (S) [Mass/Vol]Ordered By: Art Bianchi on 05-09-6934Kfouujbk (S) [Mass/Vol]3.2 g/dLMckitrick HospitalHematocrit Auto (Bld) [Volume fraction]Ordered By: Art Bianchi on 83-68-9084Zvwrodqbwq (Bld) [Volume fraction]41.0 %36.0-46.0[facility] HospitalLaboratory - Chemistry and Chemistry - challengeOrdered By: Art Bianchi on 87-50-6338Gkykii [Catalytic activity/Vol]24.0 U/E95-69ThidqtkexMckitrick HospitalLaboratory - Hematology and Cell countsOrdered By: Art Bianchi on 83-03-8362Txgezkpwy RBC/100 WBC (Bld) [Ratio]0.0 %0-0.5FThe Bellevue HospitalLymphocytes Auto (Bld) [#/Vol]Ordered By: Art Bianchi on 08-99-4743Zelibnxsteb (Bld) [#/Vol]2.6 10*3/uL1.20-4.8[facility] HospitalLymphocytes/100 WBC Auto (Bld)Ordered By: Art Bianchi on 05-15-2022 Lymphocytes/100 WBC (Bld)18.4 %.[facility]rick HospitalMCH Auto (RBC) [Entitic mass]Ordered By: Art Bianchi on 24-19-6715OMS (RBC) [Entitic mass]28.0 pg25.0-35.0[facility] HospitalMCHC Auto (RBC) [Mass/Vol]Ordered By: Art Bianchi on 62-93-6860TWVC (RBC) [Mass/Vol]33.3 g/dL31.0-37.0[facility] HospitalMCV Auto (RBC) [Entitic vol]Ordered By: Art Bianchi on 89-55-7642CAG (RBC) [Entitic vol]84.1 eF38-331ShilhtfvzMckitrick Hospital Monocytes Auto (Bld) [#/Vol]Ordered By: Art Bianchi on 69-70-0491Sopryzjoo (Bld) [#/Vol]1.2 10*3/uL0.1-1.00[facility] HospitalMonocytes/100 WBC Auto (Bld)Ordered By: Art Bianchi on 49-66-2213Chgwczrhx/100 WBC (Bld)8.3 %. [facility] HospitalNeutrophils Auto (Bld) [#/Vol]Ordered By: Art Bianchi on 70-25-4037Ynynfvqcnhf (Bld) [#/Vol]10.2 10*3/uL1.2-7.7FThe Bellevue HospitalNeutrophils/100 WBC Auto (Bld)Ordered By: Art Bianchi on 17-74-7522Abwggnvpmff/100 WBC (Bld)72.7 %.[facility] HospitalNo Panel InformationOrdered By: Art Bianchi on 37-98-1583Aosavyggd GFR ()> 60 mL/MinMckitrick HospitalComment on above:GFR estimated reference range: According to KDOQI guidelines, <60 ml/min/1.73m2 is sufficient todiagnose a patient with chronic kidney disease.Pharmacy Creatinine Clearance (Cvfo240.34[facility] HospitalPlatelet mean volume Auto (Bld) [Entitic vol]Ordered By: Art Bianchi on 36-89-4797Xqqfuwnt mean volume (Bld) [Entitic vol]8.8 fL6.3-10.7FThe Bellevue HospitalPlatelets Auto (Bld) [#/Vol]Ordered By: Art Bianchi on 97-97-2964Mpquhylze (Bld) [#/Vol]315 10*3/bX963-629OchomdbqsMckitrick HospitalProtein [Mass/volume] in Serum or PlasmaOrdered By: Art Bianchi on 29-44-2521Ogoagqm [Mass/Vol]7.9 g/dL6.1-7.9 [facility] HospitalRBC Auto (Bld) [#/Vol]Ordered By: Art Bianchi on 59-68-4485UCF (Bld) [#/Vol]4.88 10*6/uL4.10-5.10[facility] Hospitalerum or plasma alanine aminotransferase measurement without P-5'-P (enzymatic activiOrdered By: Art Bianchi on 16-74-1293MHY No additional P-5'-P [Catalytic activity/Vol]25 U/Z97-95JbdetlwdcGalion Hospitalerum or plasma albumin/globulin mass ratioOrdered By: Art Bianchi on 05-15-2022 Albumin/Globulin [Mass ratio]1.5 {ratio}[facility] Hospitalerum or plasma alkaline phosphatase measurement (enzymatic activity/volume)Ordered By: Art Bianchi on 07-49-2966CON [Catalytic activity/Vol]66 U/D07-19XrziygekbGalion Hospitalerum or plasma aspartate aminotransferase measurement (enzymatic activity/volume)Ordered By: Art Bianchi on 71-22-6087RCV [Catalytic activity/Vol]33 U/R59-77ZxccyehqiGalion Hospitalerum or plasma calcium measurement (mass/volume)Ordered By: Art Bianchi on 20-19-5374Vxozgai [Mass/Vol] 10.1 mg/dL8.2-10.2FAvita Health System Bucyrus Hospitalerum or plasma chloride measurement (moles/volume)Ordered By: Art Bianchi on 65-17-2178Dmuhrqyd [Moles/Vol]94 mmol/F03-056VnaemjsixGalion Hospitalerum or plasma glucose measurement (mass/volume)Ordered By: Art Bianchi on 01-51-7456Ooiglty [Mass/Vol]102 mg/fR02-312GuiaaouvaMckitrick HospitalComment on above:ADA recommended reference range Random Glucose Reference Range is dependent on time and content of last meal. Glucose of more than 200 mg/dL in a nonstressed, ambulatory subject supports the diagnosis of Diabetes Mellitus.Serum or plasma potassium measurement (moles/volume)Ordered By: Art Bianchi on 08-92-7502Jcbojqyha [Moles/Vol]3.1 mmol/L3.5-5.1FAvita Health System Bucyrus Hospitalerum or plasma sodium measurement (moles/volume)Ordered By: Art Bianchi on 57-98-3969Asekfy [Moles/Vol]135 mmol/L 136-146Gal[facility] Hospitalerum or plasma total bilirubin measurement (mass/volume)Ordered By: Art Bianchi on 56-39-4310Vvvljonwo [Mass/Vol]1.2 mg/dL0.3-1.2FAvita Health System Bucyrus Hospitalerum or plasma total carbon dioxide measurement (moles/volume)Ordered By: Art Bianchi on 05-15-2022 CO2 [Moles/Vol]22.2 mmol/L22.0-30.0[facility] Hospitalerum or plasma urea nitrogen measurement (mass/volume)Ordered By: Art Bianchi on 37-01-6049Urek nitrogen [Mass/Vol]23 mg/dL9-23[facility] Albumin [Mass/volume] in Serum or PlasmaOrdered By: Art Bianchi on 05-13-2022 Albumin [Mass/Vol]4.3 g/dL3.2-5.5FThe Bellevue HospitalAutomated erythrocytes count in urine sediment (number/area)Ordered By: Art Bianchi on 62-37-7283QFQ Auto (Urine sed) [#/Area]1-2 [HPF]0-4FThe Bellevue HospitalAutomated leukocytes count in urine sediment (number/area)Ordered By: Art Bianchi on 92-24-3923DLO Auto (Urine sed) [#/Area]1-2 [HPF]0-4FThe Bellevue HospitalBasophils Auto (Bld) [#/Vol]Ordered By: Art Bianchi on 78-04-2086Vpomyexcr (Bld) [#/Vol]0.1 10*3/uL0.0-0.1FThe Bellevue HospitalBasophils/100 WBC Auto (Bld)Ordered By: Art Bianchi on 05-13-2022 Basophils/100 WBC (Bld)1.0 %.[facility] HospitalBilirubin Test strip Ql (U)Ordered By: Art Bianchi on 06-51-8790Myydcubkx Ql (U)Negative NegativeMckitrick HospitalBlood hemoglobin measurement (mass/volume)Ordered By: Art Bianchi on 55-87-0613Fmgoptkasu (Bld) [Mass/Vol] 13.7 g/dL12.0-16.0[facility] HospitalBlood leukocytes automated count (number/volume)Ordered By: Art Bianchi on 89-69-2734WEL (Bld) [#/Vol]10.4 10*3/uL4.5-13.5FThe Bellevue HospitalColor Auto (U)Ordered By: Art Bianchi on 28-87-3529Arzmb (U)YellowYellowMckitrick Hospital Creatinine and Glomerular filtration rate.predicted panel (S/P/Bld)Ordered By: Art Bianchi on 00-56-2856Zfpqjsxlxe [Mass/Vol]0.76 mg/dL0.44-1.03[facility] HospitalEosinophils Auto (Bld) [#/Vol]Ordered By: Art Bianchi on 30-22-7670Fjrjbtkcmsx (Bld) [#/Vol]0.5 10*3/uL0.0-0.7FThe Bellevue HospitalEosinophils/100 WBC Auto (Bld)Ordered By: Art Bianchi on 05-13-2022 Eosinophils/100 WBC (Bld)4.6 %.[facility] HospitalErythrocyte distribution width Auto (RBC) [Ratio]Ordered By: Art Bianchi on 05-13-2022 Erythrocyte distribution width (RBC) [Ratio]13.6 %11.9-15.3FThe Bellevue HospitalEstimated glomerular filtration rate (GFR) non- Ordered By: Art Bianchi on 45-89-7202WIY/1.73 sq M.predicted among non-blacks MDRD (S/P/Bld) [Vol rate/Area]> 60 mL/MinMckitrick Hospital Globulin Calc (S) [Mass/Vol]Ordered By: Art Bianchi on 79-08-1898Faqdlbyn (S) [Mass/Vol]2.7 g/dLMckitrick HospitalHCG ( test) IA.rapid Ql (U)Ordered By: Art Bianchi on 47-08-0225YOB ( test) Ql (U)Negative [facility] HospitalHematocrit Auto (Bld) [Volume fraction]Ordered By: Art Bianchi on 67-93-2950Trszaxaqkq (Bld) [Volume fraction]40.5 %36.0-46.0 [facility] HospitalKetindiana university health [facility] Auto test strip (U) [Mass/Vol]Ordered By: Art Bianchi on 61-45-6881Yqxkzac (U) [Mass/Vol]TraceNegativeMckitrick HospitalLaboratory - Hematology and Cell countsOrdered By: Art Bianchi on 55-31-3509Dfgiwffin RBC/100 WBC (Bld) [Ratio]0.0 %0-0.5FThe Bellevue HospitalLaboratory - UrinalysisOrdered By: Art Bianchi on 23-35-0954Djrauqi casts LM Ql (Urine sed)0-8 [LPF]0-8[facility] HospitalLymphocytes Auto (Bld) [#/Vol]Ordered By: Art Bianchi on 05-13-2022 Lymphocytes (Bld) [#/Vol]1.4 10*3/uL1.20-4.8[facility] Lymphocytes/100 WBC Auto (Bld)Ordered By: Art Bianchi on 05-13-2022 Lymphocytes/100 WBC (Bld)13.1 %.[facility] Auto (RBC) [Entitic mass]Ordered By: Art Bianchi on 32-04-3211TVG (RBC) [Entitic mass]28.6 pg25.0-35.0[facility] HospitalMCHC Auto (RBC) [Mass/Vol]Ordered By: Art Bianchi on 19-83-4803AJXP (RBC) [Mass/Vol]33.7 g/dL31.0-37.0M[facility] HospitalMCV Auto (RBC) [Entitic vol]Ordered By: Art Bianchi on 84-27-0768QSA (RBC) [Entitic vol]84.7 iG05-551UxkltkjbpMckitrick Hospital Monocytes Auto (Bld) [#/Vol]Ordered By: Art Bianchi on 83-48-1501Ilpbmrjgy (Bld) [#/Vol]0.4 10*3/uL0.1-1.00[facility] HospitalMonocytes/100 WBC Auto (Bld)Ordered By: Art Bianchi on 26-46-6999Saznmxdta/100 WBC (Bld)4.2 %. [facility]rick HospitalNeutrophils Auto (Bld) [#/Vol]Ordered By: Art Bianchi on 72-80-9208Geljyssgoun (Bld) [#/Vol]8.0 10*3/uL1.2-7.7FThe Bellevue HospitalNeutrophils/100 WBC Auto (Bld)Ordered By: Art Bianchi on 47-54-2603Gjrbzfaxhmy/100 WBC (Bld)77.1 %.[facility] Nitrite Test strip Ql (U)Ordered By: Art Bianchi on 49-39-3254Tgargcs Ql (U) NegativeNegFayette County Memorial HospitalNo Panel InformationOrdered By: Art Bianchi on 94-89-8027Xvcomkdiz GFR ()> 60 mL/MinMckitrick HospitalComment on above:GFR estimated reference range: According to KDOQI guidelines, <60 ml/min/1.73m2 is sufficient todiagnose a patient with chronic kidney disease.Pharmacy Creatinine Clearance (Oikd875.80M[facility] HospitalPlatelet mean volume Auto (Bld) [Entitic vol]Ordered By: Art Bianchi on 94-83-5925Umzgbmil mean volume (Bld) [Entitic vol]8.6 fL6.3-10.7 [facility] HospitalPlatelets Auto (Bld) [#/Vol]Ordered By: Art Bianchi on 06-81-4115Ftrupxtld (Bld) [#/Vol]264 10*3/fO787-514XrktbtxqmMckitrick HospitalProtein Auto test strip (U) [Mass/Vol]Ordered By: Art Bianchi on 69-00-0703Pqunjqe (U) [Mass/Vol]30 mg/dLNegativeMckitrick HospitalProtein [Mass/volume] in Serum or PlasmaOrdered By: Art Bianchi on 86-39-5155Lmbwgmy [Mass/Vol]7.0 g/dL6.1-7.9[facility] HospitalRBC Auto (Bld) [#/Vol]Ordered By: Art Bianchi on 29-46-6663BOQ (Bld) [#/Vol]4.78 10*6/uL4.10-5.10[facility] Hospitalerum or plasma alanine aminotransferase measurement without P-5'-P (enzymatic activiOrdered By: Art Bianchi on 60-72-5847FUZ No additional P-5'-P [Catalytic activity/Vol]19 U/L10-60 [facility] Hospitalerum or plasma albumin/globulin mass ratio Ordered By: Art Bianchi on 58-34-3265Kctrdaq/Globulin [Mass ratio]1.6 {ratio} [facility] Hospitalerum or plasma alkaline phosphatase measurement (enzymatic activity/volume)Ordered By: Art Bianchi on 66-27-0163TVI [Catalytic activity/Vol]69 U/A38-29SautfwtubGalion Hospitalerum or plasma aspartate aminotransferase measurement (enzymatic activity/volume)Ordered By: Art Bianchi on 76-81-5442YSH [Catalytic activity/Vol]19 U/F36-30VvrogonhnGalion Hospitalerum or plasma calcium measurement (mass/volume)Ordered By: Art Bianchi on 08-87-6520Enzavws [Mass/Vol]9.9 mg/dL8.2-10.2FAvita Health System Bucyrus Hospitalerum or plasma chloride measurement (moles/volume) Ordered By: Art Bianchi on 63-47-6006Ydxbiacw [Moles/Vol]107 mmol/L95-114 [facility] Hospitalerum or plasma glucose measurement (mass/volume)Ordered By: Art Bianchi on 81-48-8700Jfvggcy [Mass/Vol]140 mg/dL 70-100M[facility] HospitalComment on above:ADA recommended reference range Random Glucose Reference Range is dependent on time and content of last meal. Glucose of more than 200 mg/dL in a nonstressed, ambulatory subject supports the diagnosis of Diabetes Mellitus.Serum or plasma potassium measurement (moles/volume)Ordered By: Art Bianchi on 82-41-1351Oeyecdtgu [Moles/Vol]3.7 mmol/L3.5-5.1FAvita Health System Bucyrus Hospitalerum or plasma sodium measurement (moles/volume)Ordered By: Art Bianchi on 26-78-3185Ujyayk [Moles/Vol]138 mmol/L 136-146Gal[facility] Hospitalerum or plasma total bilirubin measurement (mass/volume)Ordered By: Art Bianchi on 32-46-3674Rldlfnynu [Mass/Vol]0.5 mg/dL0.3-1.2FAvita Health System Bucyrus Hospitalerum or plasma total carbon dioxide measurement (moles/volume)Ordered By: Art Bianchi on 05-13-2022 CO2 [Moles/Vol]19.0 mmol/L22.0-30.0[facility] Hospitalerum or plasma urea nitrogen measurement (mass/volume)Ordered By: Art Bianchi on 61-77-2070Pzun nitrogen [Mass/Vol]11 mg/dL9-23[facility] Specific gravity Auto test strip (U) [Rel density]Ordered By: Art Bianchi on 25-92-0867Ukizqvwz gravity (U) [Rel density]1.0181.001-1.030Galion Hospitalquamous epithelial cells detection in urine sediment by light microscopyOrdered By: Art Bianchi on 78-37-7783Twwibxtdhp cells.squamous LM Ql (Urine sed)20-30 [HPF]0-[address] [place], [place] [address]Urine bacteria detection by automated methodOrdered By: Art Bianchi on 96-16-4036Yrskilac Auto Ql (U)2+None SeenMckitrick HospitalUrine clarity by refractometry automatedOrdered By: Art Bianchi on 21-82-8834Eijmqoz Refractometry automated (U)CloudyClearFThe Bellevue HospitalUrine glucose measurement by automated test strip (mass/volume)Ordered By: Art Bianchi on 22-99-9247Vbtsswo Auto test strip (U) [Mass/Vol]Normal mg/dLNormalMckitrick HospitalUrine hemoglobin detection by automated test stripOrdered By: Art Bianchi on 09-67-3683Uglszmaqii Auto test strip Ql (U)NegativeNegativeMckitrick HospitalUrine leukocyte esterase detection by automated test stripOrdered By: Art Bianchi on 92-67-9466Iiyelohyn esterase Auto test strip Ql (U)Negative NegativeMckitrick HospitalUrobilinogen Auto test strip (U) [Mass/Vol]Ordered By: Art Bianchi on 51-82-3608Psxnlbphkdfn (U) [Mass/Vol]Normal mg/dLNormalMckitrick HospitalpH Auto test strip (U)Ordered By: Art Bianchi on 53-29-2951xL (U)[pH]5.0-9.0Mckitrick HospitalCNPN on 79-80-1810BIREVnkvkazcx (OTOLMN) PILI PARIKH ([id number]) 3 F Date Time Provider Department 10/10/21 ROLANDO WOOTEN OTOLMN During your visit today, we recorded the following information about you: Rolando Wooten MD 10/10/2021 12:44 PM Signed Spoke with patient. Monospot positive. Waiting on CBC with diff - wbc 10. She feels ok, just sore throat after incision for ARMATURE WINDER REPAIR yesterday. Ordered further labs as somewhat atypical [...] [B27.80] Order(s):HEPATIC FUNCTION PNL [SQHFP] Order #: [id number] FUTURE HIV 1 2 COMBO(AG/AB),WITH REFLEX TO DIFFERENTIATION [SQHIV12] Order #: [id number] FUTURE CMV IGG/IGM TITER [5701954] Order #: [id number] FUTURE LISSA-HENSON VCA IGM [SQEBVM] Order #: [id number] FUTURE EBV EA AB IGG [[id number]] Order #: [id number] FUTURE LISSA-HENSON VCA IGG [SQEBVG] Order #: [id number] FUTURE CMV IGG/IGM TITER [[id number]] Order #: [id number] EBV EA AB IGG [[id number]] Order #: [id number] Prescriptions as of 10/27/2021 - HYDROcodone-acetaminophen (HYCET) [...] 10/09/2021 Encounter Status:Closed by ROLANDO WOOTEN on 10/10/21NoMadison HealthAFB Cult and Stainon [id number] Cult and StainSp. Request/Comment: - Specimen received in sterile container. Smear Result - No acid fast bacilli seen by fluorochrome stain Culture Result - No Acid Fast Bacilli isolated after 46 daysNoMadison HealthComment on above:Performed By: #### AFC #### [facility] [address] [place] [address] Vgbzsdsa Cultureon [id number] CultureSp. Request/Comment: - Specimen received in sterile container. Culture Result - Few Mixed anaerobic jori --> ABNORMAL ALERT No Bacteroides fragilis group isolated. No Clostridium perfringens isolatedCritically abnormal [facility] on above:Performed By: #### ANACUL #### [facility] [address] [place], [place] [address] Xyegu Metabolic Panlon 12-63-2807Qjlnh gap [Moles/Vol]14 mmol/L Normal9-18[facility] on above:Result Comment: (NOTE) Reference ranges for this patient's age group have not been established. These reference ranges reflect verified or established ranges for the adult population. Interpret these ranges with caution using the clinical context and additional reference resources.Performed By: #### CBCDIF, BMP, MONOLX #### [place] [address] [place] [address] Rrxrrxm [Mass/Vol]9.4 mg/dLNormal8.4-10.2CAshtabula County Medical Center Comment on above:Performed By: #### CBCDIF, BMP, MONOLX #### [place] [address] [place] [id number] Azhattxk [Moles/Vol]99 mmol/SKvelxh27-480EgruzgnbuPromedica Toledo Hospital Comment on above:Result Comment: (NOTE) Reference ranges for this patient's age group have not been established. These reference ranges reflect verified or established ranges for the adult population. Interpret these ranges with caution using the clinical context and additional reference resources.Performed By: #### CBCDIF, BMP, MONOLX #### [facility] [employer] [facility] [place], [place] [address] CK7 [Moles/Vol]23 mmol/GDzcwgh86-75MfeagarhxTrinity Health System [facility] on above:Result Comment: (NOTE) Reference ranges for this patient's age group have not been established. These reference ranges reflect verified or established ranges for the adult population. Interpret these ranges with caution using the clinical context and additional reference resources.Performed By: #### CBCDIF, BMP, MONOLX #### [facility] [employer] [address] [place], [place] [address] Mbnvqykmoh [Mass/Vol]0.64 mg/dLNormal0.58-0.96[facility] HospitalComment on above:Result Comment: Reference ranges for this patient's age group have not been established. These reference ranges reflect verified or established ranges for the adult population. Interpret these rangeswith caution using the clinical context and additional reference resources.Performed By: #### POPEYEFCHRISTEL, MONOLX #### [facility] [employer] [address] [place], [place] [address] zCJG-Ped. Factor0.65NormalCUpper Valley Medical Center on above:Result Comment: eGFR (Estimated GFR) Units [...] interpretation.Performed By: #### CHRISTEL BRIGHT, MONOLX #### [facility] [address] [place], [place] [address] Bvkjmop [Mass/Vol]89 mg/eUYeinvi54-16VyxllvwxwPromedica Toledo Hospital Comment on above:Result Comment: Reference ranges for this patient's age group have not been established. These reference ranges reflect verified or established ranges for the adult population. Interpret these rangeswith caution using the clinical context and additional reference resources. The [place] Diabetes Association (ADA) provides guidance for cutoff [...] Standards of Medical Care in Diabetes 2016, [place] Diabetes Association. Diabetes Care. 2016.39(Suppl 1).Performed By: #### CBCSAULFCHRISTEL, MONOLX #### [facility] [employer] [address] [place], [place] [address] Pzlqkabaj [Moles/Vol]4.4 mmol/LNormal3.7-5.1CUpper Valley Medical Center on above:Result Comment: (NOTE) Reference ranges for this patient's age group have not been established. These reference ranges reflect verified or established ranges for the adult population. Interpret these ranges with caution using the clinical context and additional reference resources.Performed By: #### CBCDIFCHRISTEL, MONOLX #### [facility] [employer] [facility] [place], [place] [address] Wofzsc [Moles/Vol]136 mmol/UDwgygy512-172YlnmlnbefPromedica Toledo Hospital Comment on above:Result Comment: (NOTE) Reference ranges for this patient's age group have not been established. These reference ranges reflect verified or established ranges for the adult population. Interpret these ranges with caution using the clinical context and additional reference resources.Performed By: #### POPEYEFCHRISTEL, MONOLX #### [facility] [employer] [address] [place], [place] [address] Vwhh nitrogen [Mass/Vol]8 mg/dLNormal5-18[facility] Comment on above:Performed By: #### CBCDIF, BMP, MONOLX #### [facility] [employer] [facility] [place], [place] [address] QJO and Differentialon 62-45-8431Fmp Baso0.11 k/uLHigh<0.11CUpper Valley Medical Center on above:Performed By: #### CBCDIF, BMP, MONOLX #### [facility] [employer] [address] [place], [place] [address] Rln Lym4.27 K/uLHigh1.00-4.00[facility] on above:Performed By: #### CBCDIF, BMP, MONOLX #### [place] [address] [place] [address] Sig Mono1.10 k/uLHigh<0.87[facility] on above:Performed By: #### CBCDIF, BMP, MONOLX #### [place] [address] Dmo Neut5.37 k/uLNormal1.45-7.50[facility] on above:Performed By: #### CBCDIF, BMP, MONOLX #### [place] [address] Qcpfsvtwz/100 WBC (Bld)1 %NormalTrinity Health System [facility] on above:Performed By: #### CBCDIF, BMP, MONOLX #### [place] [phone] CommentsSEE COMMENTNormalCUpper Valley Medical Center on above:Result Comment: Platelet estimate adequatePerformed By: #### CBCDIF, BMP, MONOLX #### [place] [address] Iroqlyitwlp (Bld) [#/Vol]0.11 10*3/uLNormal<0.46[facility] on above:Performed By: #### CBCDIF, BMP, MONOLX #### [place] [address] Rrndfujjdae/100 WBC (Bld)1 %NormalTrinity Health System [facility] on above:Performed By: #### CBCDIF, BMP, MONOLX #### [place] [phone] distribution width (RBC) [Ratio]13.4 %Cnlide77.5-15.0 [facility] on above:Performed By: #### CBCDIF, BMP, MONOLX #### [facility] [address] [place], [place] [address] Mdnsbtlomc (Bld) [Volume fraction]39.8 %Noxlbk44.0-46.0[facility] on above:Performed By: #### CBCDIF, BMP, MONOLX #### [place] [address] [place], [place] [address] Dfusuplegt (Bld) [Mass/Vol]12.5 g/nYCxxeis56.5-15.5CUpper Valley Medical Center on above:Performed By: #### CBCDIF, BMP, MONOLX #### [place] [address] Ubdmjtccaiy/100 WBC (Bld)39 %NormalTrinity Health System [facility] on above:Performed By: #### CBCDIF, BMP, MONOLX #### [address] [address] RWZ79.4 eJEitrao97.0-34.0[facility] on above: Performed By: #### CBCDIF, BMP, MONOLX #### [address] [address] ZUQW (RBC) [Mass/Vol]31.4 g/uZJntcwh95.5-36.0[facility] on above:Performed By: #### CBCDIF, BMP, MONOLX #### [place] [address] [place], [place] [address] BLP (RBC) [Entitic vol]87.3 wUOnsjpz24.0-100.0[facility] on above:Performed By: #### CBCDIF, BMP, MONOLX #### [place] [address] [place], [place] [address] Aqfkwhlqq/100 WBC (Bld)10 %NormalTrinity Health System [facility] on above:Performed By: #### CBCDIF, BMP, MONOLX #### [place] [address] [place] [address] Dovorqijlet/100 WBC (Bld)49 %NormalTrinity Health System [facility] on above:Performed By: #### CBCDIF, BMP, MONOLX #### [place] [address] Lvllpyoj mean volume (Bld) [Entitic vol]10.3 fLNormal9.0-12.7 [facility] on above:Performed By: #### CBCDIF, BMP, MONOLX #### [place] [address] Mbilzicen (Bld) [#/Vol]218 10*3/zUUesvke904-984UmskjmkyiTrinity Health System [facility] on above:Performed By: #### CBCDIF, BMP, MONOLX #### [place] [address] DGU (Bld) [#/Vol]4.56 10*6/uLNormal3.90-5.20[facility] on above:Performed By: #### CBCDIF, BMP, MONOLX #### [place] [address] Bvf Cell MorphSEE COMMENTNormalCUpper Valley Medical Center on above:Result Comment: Slight Polychromasia Few OvalocytesPerformed By: #### CBCDIF, BMP, MONOLX #### [place] [address] DUK (Bld) [#/Vol]10.95 10*3/uLNormal3.70-11.00[facility] on above:Performed By: #### CBCDIF, BMP, MONOLX #### [address] [place], [place] [address] LQLJug 14-24-3313ONDZDvruta Visit (OTOLMN) PILI PARIKH ([id number]) 3 F Date Time Provider Department 10/09/21 [...] The nasal passageways a (more content not included)...NormalPromedica Toledo HospitalFungal Cultureon 99-88-4377Xxzlvn CultureSp. Request/Comment: - Specimen received in sterile container. Culture Result - No Fungus isolated after 28 daysNormalCAshtabula County Medical CenterComment on above:Performed By: #### FCUL #### [facility] [address] [place] [address] Ztkl Slide Teston 43-48-1168Oujz Slide TestPositiveCritically abnormalNegativePromedica Toledo HospitalComment on above:Performed By: #### CBCDIF, BMP, MONOLX #### [facility] [address] [place] [address] Novcq Culture/Stainon 55-70-0144Jzkir Culture/StainSp. Request/Comment: - Swab Smear Result - Rare Gram positive cocci --> ABNORMAL ALERT Rare Polymorphonuclear leukocytes Culture Result - Rare Mixed oral jori For wound culture, tissue or aspirates are superior to swab specimens. If a swab must be used, eSwab is preferred. Critically abnormalPromedica Toledo HospitalCombronson methodist hospital on above:Performed By: #### WCUL #### [facility] [address] [place] [address] Hzybxviyk Summaryon 69-10-2329Eylcutjir SummarySend Summary:Discharge Summary Providers:Provider RoleProvider Name? ReferringLoLydia, Radha Hope? PrimaryBuMelida franco? Jonas Vizcarra Note Recipients: Melida Daniel MD - [id number] [[id number]]Radha Unger MDZaraa, Solomon Gustav, MD Discharge: Summary:Admission Date: .23-Jun-2018 01:12:00Discharge Date: 83-Ynb-2078Pmiqwcbkb Physician at Discharge: Jonas Mancusodmission Reason: Atenolol and tylenol overdose(1)Final Discharge Diagnoses: Other Specified Depressive DisorderProcedures: noneCondition at Discharge: SatisfactoryDisposition at Discharge: .HomeVital Signs: T EYPCKbG8Egnel45.61800491/86Date/Time8/ 9:088/ 9:0806/28 9:0806/28 9:08Range(36.6C - 36.6C ) [...] to Schedule in: 1x weekly - Location: [address] [place], [place] [address] Phone Number: phone: [phone] l fax: [phone] Follow-Up Appointment 02: Physician/Dept/Service: Griffin Lazcano Reason for Referral: Case Management Call to Schedule in: 1x weekly Location: [address] [place] [address] Phone Number: phone: [phone] l fax: [phone] Discharge Medications: Home MedicationQvar 80 mcg/inh inhalation [...] - Pending: NoneRadiology Results - Pending: None Signature/Cosignature/Attestation:Potato Chip Sorter Only - Attest to Medical Student/Acting Pricer documentationAs ateaching institution, we recognize that medical [...] Last Updated: 14-Jul-2018 10:37 by Leidy Nugent ([facility] CenterClinical Event Note-Telephoneon 81-70-6497Lzpnuzjq Event Note-TelephoneEvent:Topic: TelephoneDetails:Called and talked to both parents (mom and dad). Updated information aboutpatient clinical status. Also told that that patient is experiencing nightmaresand sleep issues. Mom and dad was given information about the risk and benefitsof medication. In particular this contract technical writer talked about clonidine and guanfacineoption. Parent at this time denied adding any medication and said they wouldthink about it. Mom also reported that patient is prescribed gabapentin was for headache andshe said that medication has helped her a lot. Electronic Signatures:Maikol Wong ( (Resident)) (Signed 27-Jun-2018 16:13)Authored: Event Last Updated: 27-Jun-2018 16:13 by Maikol Borja ( (Resident))[facility] CenterDaily Progress Note - Child Psychiatryon 24-06-4494Aeonkqh mass concSubjective Data:PILI PARIKH is a 13 year old Female who is Hospital Day # 5. Patient seen in [facility] with Dr. Mancuso, chart reviewed. Patient denies [...] and benefits of medication. In particular this contract technical writer talkedabout clonidine and guanfacine option. Parent at this time denied adding anymedication and said they would think about it.Mom also reported that patient is prescribed gabapentinwas for headache andshe said that medication has helped her a lot. Overnight Events: Patient had anuneventful night. Objective: Objective Information: T JDRYQeA5Reeqa24.77331255/72Date/Time06/27 17: 17: 17: 17:15Range(36.6C - 36.6C ) (53 - 57 ) (18 - 18 ) (112 - 112 )/ (72 - 72 ) Pain reported at 06/27 15:48: 7 ---- Intake and Output -----Mn/Dy/Year TimeIntakeOutputNetJul 2017 2:00 [id number] 2017 10:00 [id number] The Intake and Output Totals for the last 24 hours are:I cimkzBtxwsrNcw232oxcuahll---Hndflf---Kvvmccl - Oral PO Fluid/Feed (oral): 840 mL [...] Acetaminophen - PEDS: 650 mg Oral Every 2Qghzm3. Albuterol 90 micrograms/ Inhalation MDI - PEDS: 2 inhalation InhalationEvery 4 Hours3. diphenhydrAMINE - PEDS: 25 mg Oral Every 4 Hours4. diphenhydrAMINE - PEDS: 25 mg Oral Every 4 Hours5. diphenhydrAMINE Injectable. - PEDS: 25 mg IntraMuscular Inj Every 6Jzifl8. Lidocaine 4% Top Crm -Tegaderm Dressing KIT [...] saw and evaluated the patient. I personallyobtainedthe peaocck and critical portions of the history and physical exam or wasphysically present forkey and critical portions performed by theresident/fellow. I reviewed the resident/fellow?s documentation and discussedthe patient with the resident/fellow. I agree with the resident/fellow?smedical decision making as documented in the resident?s note.I personally evaluated the patient (as noted inthe above attestation) [id number] Electronic Signatures:Maikol Wong (Resident)) ( Signed 27-Jun-2018 17:40)Authored: Subjective Data, Objective, Assessment and Plan, MultidisciplinaryRounding, Medication Consent, Signature/Cosignature/AttestationJonas Mancuso) (Signed 13-Jul-2018 09:29)Authored: Signature/Cosignature/AttestationCo-Signer: Subjective Data, Objective, Assessment and Plan, MultidisciplinaryRounding, Medication Consent, Signature/Cosignature/Attestation Last Updated: 13-Jul-2018 09:29 by Jonas Mancuso)[facility] CenterDaily Progress Note - Child Psychiatryon 79-11-1209Xbfydib mass concSubjective Data:PILI PARIKH is a 13 [...] an uneventful night. Objective: Objective Information: T CMEPArP2Seynv90.46196532/73Date/Time06/26 8: 8: 8: 8:56Range(36.4C - 36.4C ) (53 - 53 ) (16 - 16 ) (121 - 121 )/ (73 - 73 ) Pain reported at 06/26 8:56: 7 ---- Intake and Output -----Mn/Dy/Year TimeIntakeOutputNetJul 2017 2:00 [id number] 2017 10:00 [id number] The Intake and Output Totals for the last 24 hours are:ZqgoghGgbotqNen237gkljlbkm---Cfjewe---Faaofkc - Oral PO Fluid/Feed (oral): 720 mL [...] - PEDS: 25 mg IntraMuscular Inj Every 9Dqdtn9. Lidocaine 4% Top Crm -Tegaderm Dressing KIT [...] for eating disorder today.Pt was started on Tpzkvni34 today PO daily. Mom and dad has [...] patient (as noted in the above attestation) [id number] Electronic Signatures:Maikol Wong (Resident)) (Signed 26-Jun-2018 17:49)Authored: Subjective Data, Objective, Assessment and Plan, MultidisciplinaryRounding, Medication Consent, Signature/Cosignature/AttestationJonas Mancuso) (Signed 10-Jul-2018 11:35)Authored: Signature/Cosignature/AttestationCo-Signer: Subjective Data, Objective, Assessment and Plan, MultidisciplinaryRounding, Medication Consent, Signature/Cosignature/Attestation Last Updated: 10-Jul-2018 11:35 by Jonas Mancuso)[facility] CenterDaily Progress Note - Child Psychiatryon 07-99-7094Gleenev mass concSubjective Data:PILI PARIKH is a 13 [...] an uneventful night. Objective: Objective Information: T KSXYLgE1Qifzc44.95730492/82Date/Time06/25 10: 10: 10: 10:30Range(36.5C -36.6C ) (50 [...] - PEDS: 25 mg IntraMuscular Inj Every 2Pifiu8. Lidocaine 4% Top Crm -Tegaderm Dressing KIT [...] POTS who presented after intentional ingestion of 80s62ia atenolol and 2 extra strength tylenol. Past [...] Consent, Signature/Cosignature/AttestationLast Updated: 25-Jun-2018 13:05 by Femi Dasilva)[facility] CenterDischarge Iflndpl0rg 06-24-2018 Protein mass concDischarge Orders:Anticipated Discharge Date:? Anticipated Discharge Vdzq40-Apa-3572 Problem List: Additional Dx:? Depressive disorder: Catalog [...] 28-Jun-2018 13:59:04 Appo intments:Follow-Up Appointment 01:? Physician/Dept/[facility]? Reason for ReferralGroup Counseling? Call to Schedule in1x weekly - ? [address] [place], [place] [address]? Phone Numberphone: [phone] l fax: [phone] Follow-Up Appointment 02:? Physician/Dept/[facility]? Reason for ReferralCase Management? Call to Schedule in1x weekly? [address] [place], [place] [address]? Phone Numberphone: [phone] l fax: [phone]? Karly has completed referral for individual and psychiatryservices. Electronic Signatures:Susan Gomez ( (Resident)) (Signed 28-Jun-2018 13:59)Authored: Discharge Orders, Provider FINAL REVIEW of OrdersJuli Tijerina () (Signed 26-Jun-2018 12:28)Authored: Appointments, Gold Form - Dormitory Supervisor Summary Last Updated: 28-Jun-2018 13:59 by Susan Gomez ( (Resident))[facility] CenterHistory and Physical - Child Psychiatryon 04-61-4239Nfhnkzu and Physical - Child PsychiatryHistory of Present [...] would leave behind all her family, bestfriend Ktay, pets and the ostrich . Thought it [...] wasn't feeling well and was taken to [facility] ED withbradycardia and dizziness, was admitted to telemetry. She [facility] that she took the pills [...] Psychiatric History:Current psychiatrist: NoneCurrent therapist: Maureen (through [facility])Other providers/agencies: Sales Force Developer is Griffin ([phone]) Formerly [facility]; attends group therapy every (patient statestherapy wasstarted because she was in the hospital for so long due to her POTS)Outpatient treatmenthistory: No current 1:1 therapist, but [facility]: NoneHistory of suicide [...] Mother, father, brother 19yo lives on own, aunjfbr53sz lives with grandmother, Cats, outside pet raccoon (ottoniel)-Born and raised: [place]-Sexually acti ve/contraceptives/orientation: OCP-Sexual history (/STDs): Not sexually [...] Rash, Ulcer Objective Information: Objective Information: T NZDDMeP6Svmzc22.87588331/62858%Date/Time06/24 9: 9: 9: 9: 20:26Range(36.6C - 37C [...] Regular rate, rhythm, volume andtone, spontaneous, fluent.Mood: [facility] Affect: Flat, dysthymic, mood congruent although will [...] the deltoid, biceps,triceps, quadriceps, and hamstrings.? Cerebellar: Gehgql-pi-kuom and wsfh-xt-zesh test normal bilaterally. Balanceswith eyes closed (Romberg). [...] Omeprazole - PEDS: 20 mg Oral Daily [address]. Riboflavin - PEDS: 400 mg Oral Daily PRN Medications 1. Acetaminophen - PEDS: 650 mg Oral Every 6 Hours2. Albuterol 90micrograms/ Inhalation MDI - PEDS: 2 inhalation InhalationEvery 4 Hours3. diphenhydrAMINE - PEDS: 25 mg Oral Every 4 Hours4. diphenhydrAMINE - PEDS: 25 mg Oral Every 4 Hours5. diphenhydrAMINE Injectable. - PEDS: 25 mg IntraMuscular Inj Every 2Spwjn7. Lidocaine 4% [facility] For ChildrenTegaderm Dressing KIT - PEDS: 1 application(s)Topical Once7. [...] POTS who presented after intentional ingestion of 65j70vh atenolol and 2 extra strength tylenol. Past [...] patient (as noted in the above attestation) [id number] Provider ? Inpatient Certification StatementI certify this [...] Systems, Objective,Assessment and Plan, Medication Consent, Signatures/Attestation/CertificationSaFederico negland (Fellow)) (Signed 24-Jun-2018 13:27)Authored: History of Present Illness, Past Psychiatric His tory, PastMedical/Surgical History, Family History, Social History, Allergies,Medications Prior to Admission, Psychiatric Review of Symptoms, Review ofSystems, Objective, Assessment and Plan, Medication Consent,Signatures/Attestation/Certification Last Updated: 24-Jun-2018 13:33 by Femi Dasilva) References:1. Data Referenced From History and Physical - Peds 06/23/2018 03:20 AMNormalLourdes Medical Center of Burlington CountyTSHon 96-13-8219Gcxuvxtgpnz Qn1.02 m[IU]/LNormal0.44 - 3.98[facility] Comment on above:Result Comment: TSH testing is performed using different testing methodology at [facility] than at other [facility]. Direct result comparisons should only be made within the same method.. Patients receiving more than 5 mg/day of biotin may have interference in test results. A sample should be taken no sooner than eight hours after previous dose. Contact [phone] for additional information.Performed By: #### TSH2 ####[facility], [place] [address]VEUWRJO D, 25-HYDROXYon 11-51-9363VMOWXUV D, 25-YGTITPE02 ng/mLAbnoPenrose Hospital Comment on above:Result Comment: .DEFICIENCY: < 20 NG/MLINSUFFICIENCY: 20-29 NG/MLOPTIMUM LEVEL: 30-80 NG/MLPOSSIBLE TOXICITY: > 80 NG/MLTHIS ASSAY ACCURATELY QUANTIFIES THE SUM OFVITAMIN D3, 25-HYDROXY AND VITD2,25-HYDROXY. Performed By: #### TSH2 ####[facility], [place] [address]Rkdsznmqj Risk Screen - Pediatricon 37-72-5120Heetjfkxw Risk Screen - PediatricAdmission Screens:Patient Verification:? New [...] in December by a [facility] and a fewmonths back as well? [...] Able to be Assessed for Learningyes? Educational Mlawo5ug9th grade? Factors Influence Readiness to Learnnone, ready to learn? Factors Impact Ability to Learnnone? Devices/Methods Used to Communicatenone? Learning Preferencesaudio, computer/internet, individual instruction, skilldemonstration, verbal instruction, video, written material? Cultural Considerationsnone? Developmental Considerationsnone? Moravian Considerationsnone Learning Assessment (Other Learner):? Other learner availableyes? Other Learner is Able to be Assessed for Learningyes? Learnerfather, mother? Factors Influencing Readiness to Learnnone, ready to learn? Factors that Impact Ability to Learnnone? Devices/Methods Used to Communicatenone? Learning Preferencesaudio, computer/internet, group instruction, individualinstruction, skill demonstration, verbal instruction, video, written material? Cultural Considerationsnone? Developmental Considerationsnone? Moravian Considerationsnone Nutrition Risk Screen:? N utrition Screen [...] Spiritual Screen:? Are there any cultural, spiritual, pentecostal practices/values/needs that areimportant for us to know?no [...] Screens Last Updated: 23-Jun-2018 02:50 by Lubna Lockett)[facility] Clinical Event Note-Consent for psych evalon 99-94-8908Urrvzmxe Event Note- Consent for psych evalEvent:Topic: Consent for psych evalDetails:Father (Carlos Parikh) and Mother ([phone]) give consent for patient to [facility]evaluated [facility]ol[facility] number [phone] Provider / Team Contact Information:Provider/Team Contact Info-Pager Number: [phone] Electronic Signatures:Ayaan Burnham (Resident)) (Signed 23-Jun-2018 03:20)Authored: Event, Provider / Team Contact Information Last Updated: 23-Jun-2018 03:20 by Ayaan Burnham (Resident)) [facility] CenterClinical Event Note-Medical Clearanceon 28-20-3990Zlnlswex Event Note-Medical ClearanceEvent:Topic: Medical ClearanceDetails:Medically cleared for [facility] transfer, pending bed availability. CAMILA CorreaGY-1 PediatricsPager [phone] Provider / Team Contact Information:Provider/Team ContactInfo-Pager Number: [phone] Electronic Signatures:Nelsy Rowland (Resident)) (Signed 23-Jun-2018 13:10)Authored: Event, Provider / Team Contact Information Last Updated: 23-Jun-2018 13:10 by Nelsy Rowland (Resident))[facility] CenterClinical Event Note- transfer to [facility] CAPUon 58-35-5024GVM Auto #/vol (Bld)Event:Topic: transfer to [facility] CAPUDetails:A bed will be available tonight after [...] / Team Contact Information:Provider/Team Contact Info-Pager Number: [phone] pager Electronic Signatures:Flor Al (Fellow)) (Signed 23-Jun-2018 18:33)Authored: Event, Provider / Team Contact Information Last Updated: 23-Jun-2018 18:33 by Flor Al (Fellow)) [facility] CenterConsult - Child Psychiatryon [id number] - Child PsychiatryConsult Referral Information:Consult requested by [...] wasn't feeling well and was taken to [facility] ED withbradycardia and dizziness, was admitted to telemetry, later medically clearedand transferred to [facility] medical floor for psychiatric placement. She reported [...] PSYCHIATRIC HISTORY:Current psychiatrist: NoneCurrent therapist: Maureen (through [facility])Other providers/agencies: Sales Force Developer is Griffin ([phone]) Formerly [facility]; attends group therapy every (patient states therapy wasstarted because she was in the hospital for so long due to her POTS)Outpatient treatment history: No current 1[facility], [facility]: NoneHistory of suicide ideation/attempts: [...] school due to hospitalizations for POTS/medical issuesReports [facility] recent [facility] was [...] checked: no Objective Information: Objective Information: T EZMTUbF2Qgogo77.7801241/5699%Date/Time06/23 8: 8: 8: 8: 8:33Range(36.5C - 36.7C [...] Ondansetron - PEDS: 8 mg Oral Every 7Qrdgp5. Polyethylene Glycol - PEDS: 17 gram(s) Oral [...] patient to leave even AMA(4) Please call [phone] with any questions Electronic Signatures:Laura Galvez) (Signed 23-Jun-2018 13:03)Authored: Consult Referral Information, History of Presenting Illness,Allergies, Medications Prior to Admission, Objective Information,As sessment/Recommendations, Signature/Cosignature/Attestation Last Updated: 23-Jun-2018 13:03 by Laura Galvez)[facility] Discharge Planning Noteon 19-40-4377Lkzknigen Planning NoteDischarge Needs Assessment:? Discharge Planning Assessment Fteo87-Bbq-7910? Discharge Planning Assessment Completed byLubna Lockett RN Pediatric Information:? Reason for Admission as Stated by Patient/Parent/CaregiverIngestion ofatenolol? Reason for Infant's AdmissionSI? Primary Caregivermother, [...] Care NeedsHome Discharge Planning:Discharge Plannin06/23/2018 @ 0100 regional education coordinator Note: Patient admitted to [facility] [address] [facility]. Patient admitted for ingestion ofatenolol, SI. Patient and familyoriented to the unit, staff, and floor routine. Patient and family do not haveany more questions or needs at this time. - Lubna Lockett RN Final Disposition/Discharge:Disposition/Discharge Information: Discharge/Transfer Information:? Discharge/Transfer Date/Gzpy53-M 14:50? Discharged Accompanied Byparent? Discharge Modeambulatory? Transportation [...] From Admission Risk Screen - Pediatric 06/23/2018 02:40AMNormalLourdes Medical Center of Burlington CountyHistory and Physical - Pedson 06-23-2018 History and Physical - PedsHistory of Present Illness:/Lactating:? Are You no (1)? Are You Currently Breastfeedingno (1) History of Present Illness:Admission Reason: awaiting psych placementHPI:2 days ARMATURE WINDER REPAIR around 6:40 in the evening, Pili felt [...] held.Medically cleared and transferred to [facility]. Upon arrival denies anypain, asidesfrom her baseline [...] and are negative Objective: Objective Information: T RNMWYjW2Wfydt60.08769795/7897%Date/Time06/23 0:5006/23 0:5006/23 0:5006/23 0:5006/23 0:50Range(36.7C - 36.7C [...] transferred to[facility] for psych placement. [facility]# suicidal ideation - beta adán overdose- psycheval- awating for bed- parents do not want psych meds- 1:1 sitter- f/u with poison control. CV- baseline HR 50-60s- EKG at OSH- sinus bradycardia with sinus arrhythmia- atenolol held- repeat EKG POTS- continue home meds Ayaan Burnham, CAMILAGY-1 PediatricsPager [phone] Signatures/Attestation/Certification:Attending AttestationI saw and evaluated the patient. [...] patient (as noted in the above attestation) uv01-Bnf-1 018Attending Provider ? Inpatient Certification StatementI certify [...] Patient Profile - Pediatric v2 06/23/2018 02:37 [facility] HospitalLetter - Admission Notification to PCPon 01-18-0805Xyzgib - Admission Notification to PCPLetter of Admission:Today's Date: 23-Jun-2018. Dear Melida Daniel MD. We would like to informyou that your patient was admitted to [facility] on the following date: 2017. The patient [...] Radha Unger MD. Attending Physician Phone Number: [phone]. Electronic Signatures:Jae Mensah (DIV SECT) (Signed 23-Jun-2018 08:29)Authored: Admission Letter Last Updated: 23-Jun-2018 08:29 by Jae Mensah (DIV SECT)[facility] CenterMeasurementson 93-15-1184UhocianzvqqxGgytgx: ? Med Calc Weight (kg)90.5 kilogram(s) Electronic Signatures: Ayaan Burnham (Resident)) (Signed 23-Jun-2018 01:57) Authored: Weight Last Updated: 23-Jun-2018 01:57 by Ayaan Burnham (Resident))[facility] CenterPatient Profile - Pediatric v2on 53-42-4010Wbrrriw mass concProfile:Initial Info:How to be AddressedTrinityParent NameRobert Jl (father)Spoken Language PreferredEnglishLegal CustodianParents (Carlos & )Are you currently using the Personal Electronic Health Record or [facility]ITALCAREnoAre you interested in learning more about [facility] for the management of yourhealthnot at [...] Information Last Updated: 23-Jun-2018 02:40 by Lubna Lockett)[facility] CenterVisitor Enrico [phone] ListVisitor List: Carlos Parikh (father). Cy Parikh (mother). Electronic Signatures: Lubna Lockett) (Signed 23-Jun-2018 04:37) Authored: Visitor List Last Updated: 23-Jun-2018 04:37 by Lubna Lockett)[facility] CenterOffice Visit (Pediatric Neurology)on 64-99-5099Tehgfv Visit (Pediatric Neurology)Chief ComplaintFollow up POTS and [...] her tear ducts. She had seen an cigar head holer who confirmed this. She is in summer school now and is hoping sherrie a freshman in the fall. She will be going to [employer] school in the fall. She can still [...] pain; KAYLA = N; Verified Transmission to [place] [address]; Last Updated By: Juan Antonio Burgos; 09/28/2017 12:12:51 PM Afrin 12 Hour 0.05 % Nasal Solution; USE 1 SPRAY IN EACH NOSTRIL TWICE DAILY;Therapy: 22Dec2017 to (Evaluate:25Dec2017) Requested for:22Dec2017; LastRx:22Dec2017 Ordered Rx By: Dali Mcintosh; Dispense: 3 Days ; #: Sufficient X 15 MLBottle; Refill: 0;For: Abdominal pain, Asthma, mild persistent, Epistaxis, Flu-like symptoms, Hematemesis, Vomiting; KAYLA = N; Rx auto-faxed to [facility]; Last Updated By: Spongecell; 12/22/2017 5:43:51 PM AeroChamber Z-Stat Plus/Large Miscellaneous; Please dispense large spacer withmouthpiece. Okay to substitute Optichamber with mouthpiece or Ashley Vortex withmouthpiece;Therapy: 2 03Sep2014 to (Last Rx:24Mar2015) Requested for: 24Mar2015 Ordered Rx By: Amira Roach; Dispense: 0 Days ; #:1 Miscellaneous; Refill: 1;For: Asthma; KAYLA = N; Verified Transmission to [facility]; Last Updated By: Spongecell; 03/24/2015 10:46:52 AM Albuterol Sulfate (2.5 MG/3ML) 0.083% Inhalation Nebulization Solution; Inhale one vialevery 4-6 hours as needed for cough, wheezing andshortness of breath;Therapy: 23Sep2014 to (Evaluate:20Oct2015) Requested for: 24Mar2015; LastRx:24Mar2015 Ordered Rx By: Amira Roach; Dispense: 30 Days ; #:1 X 3 ML Plas Cont (60 Plas Conts); Refill: 6;For: Asthma; KAYLA = N; Verified Transmission to [facility]; Last Updated By: Spongecell; 03/24/2015 10:46:51 AM PredniSONE 20 MG Oral Tablet; Take 3 tablets once daily for 5-7 days. To be used in thesetting of a severe asthma flare-up. Please call the office prior to starting;Therapy: 23Sep2014 to (Last Rx:24Mar2015) Requested for: 00Rmg4653 Ordered Rx By: Amira Roach; Dispense: 0 Days ; #:21 Tablet; Refill: 1;For: Asthma; KAYLA = N; Sent To: [facility]; Last Updated By: Dali Mcintosh; 04/14/2018 10:03:48 AM ProAir HFA 108 (90 Base) MCG/ACT Inhalation Aerosol Solution; Inhale 2-4 puffs every4-6 hours as needed for cough, wheezing or shortness of breath and priorto exercise;Therapy: 23Sep2014 to (Last Rx:07Jyr5899) Requested for: 24Mar2015 Ordered Rx By: Amira Roach; Dispense: 0 Days ; #:2 X 8.5 GM Inhaler; Refill: 6;For: Asthma; KAYLA = N; Verified Transmission to [place] [address]; Last Updated By: FunnelFire Ariane SystemsjenaroPlan[employer] NET; 03/24/2015 10:46:52 AM Qvar 80 MCG/ACT Inhalation Aerosol Solution; INHALE TWO PUFFS BY MOUTH TWICEA DAY WITH A SPACER;Therapy: 23Sep2014 to (Last Rx:90Lwq1640) Requested for: 35Yvk1494 Ordered Rx By: Amira Roach; Dispense: 0 Days ;#:8.7 EA; Refill: 5;For: Asthma, mild persistent; KAYLA = N; Verified Transmission to [place] [address] Lansoprazole 30 MG Oral Capsule Delayed Release; TAKE 1 CAPSULE EVERYMORNING DAILY;Therapy: 24Wir3252 to (Evaluate:24Hny0992) Requested for: 55Skd6382; LastRx:18Apr2018 Ordered Rx By: Dali Mcintosh; Dispense: 30 Days ; #:30 Capsule Delayed Release; Refill: 3;For: Gastro-esophageal reflux; KAYLA = N; Verified Transmission to [place] [address] Unspecified Medication; Vitamin B2-400 Oral Capsule1 capsule orally once a day;Therapy: (Recorded:89Kju4794) to Recorded Dispense: 0 Days ; #: Sufficient; Refill: 0;For: Health Maintenance; KAYLA = N; Record; Last Updated By: Mehran Martinez; 08/26/2017 8:43:21 AM Gabapentin 300 MG Oral Capsule; TAKE 1 CAPSULE 3 TIMES DAILY;Therapy: 28Sep2017 to (Eval uate:17Aug2018) Requested for: 18Feb2018; LastRx:18Feb2018 Ordered Rx By: Mere Simpson; Dispense: 30 Days ; #:90 Capsule; Refill: 5;For: Migraine; KAYLA = N; Verified Transmission to [place] [address]; Last Updated By: Loretta Shortcut LabsGiuliaPlanearth NET; 02/18/2018 9:49:39 AM Magnesium Oxide 400 MG Oral Tablet; 1 TABLET ORALLY ONCE A DAY;Therapy: (Recorded:07Tvg7347) to Recorded Dispense: 0 Days ; #: Sufficient Tablet; Refill: 0;For: Migraine; KAYLA = N; Record; Last Updated By: Mehran Martinez; 08/26/2017 8:43:21 AM Amitriptyline HCl - 25 MG Oral Tablet; TAKE 1 TABLET AT BEDTIME;Therapy: 25Yhq1680 to (Evaluate:61Knt8807) Requested for: 10Tzn3373; LastRx:62Vwx8848 Ordered Rx By: Dali Mcintosh; Dispense: 30 Days ; #:30 Tablet; Refill: 6;For: Migraine, Vomiting; KAYLA = N; Verified Transmission to [place] [address] Vitamin D 1000 UNIT Oral Tablet; TAKE 1 TABLET DAILY;Therapy: 87Tnv5518 to (Evaluate:56Cgu3921) Requested for: 53Muc6736; LastRx:26Ldw6387 Ordered Rx By: Dali Mcintosh; Dispense: 30 Days ; #:30 Tablet; Refill: 3;For: Vitamin D deficiency; KAYLA = N; Verified Transmission to [place] [address] Cyproheptadine HCl - 4 MG Oral Tablet; TAKE 1 TABLET EVERY 8 HOURS DAILY Requested for: 02Sep2017; Last Rx:02Sep2017 Ordered Rx By: Jessica Coello; Dispense: 30 Days ; #:90 Tablet; Refill: 3;For: Vomiting; KAYLA = N; Rx auto-faxed to [place] [address]; Last Updated By: Juan Antonio Burgos; 09/02/2017 3:51:52 PM Ondansetron HCl - 8 MG Oral Tablet; TAKE 1 TABLET 3 times daily PRN vomiting;Therapy: 16Dec2017 to (Evaluate:80Qcr7697) Requested for: 06Fhg5225; LastRx:18Apr2018 Ordered Rx By: Dali Mcintosh; Dispense: 30 Days ; #:90 Tablet; Refill: 3;For: Vomiting; KAYLA = N; Verified Transmission to [place] [address] Phenergan 25 MG SUPP; INSERT 1 SUPPOSITORY RECTALLY EVERY 12 HOURS ASNEEDEDFOR NAUSEA AND VOMITING;Therapy: 72Pfw1598 to (Last Rx:16Dec2017) Requested for: 16Dec2017 Ordered Rx By: Dali Mcintosh; Dispense: 0 Days ; #:12 Suppository; Refill: 1;For: Vomiting; KAYLA = N; Rx auto-faxed to [facility]; Last Updated By: Spongecell; 12/16/2017 1:32:36 PM Promethazine HCl - 25 MG Oral Tablet; 1 tablet orally every 12 hours as needed fornausea/vomiting Requested for: 16Dec2017; Last Rx:16Dec2017 Ordered Rx By: Dali Mcintosh; Dispense: 0 Days ; #:60 Tablet; Refill: 0;For: Vomiting; KAYLA = N; Rx auto-faxed to [facility]; Last Updated By: Spongecell; 12/16/2017 1:32:35 PM Atenolol 25 MG Oral [...] 04/14/2018 10:03:53 AM Vitals Vital Signs Recorded: 19Gce5760 10:59KYUerkxsgf578Dgtkogkyd16Dukbhd4 ft 2.40 rzGisfbj780 lb 14.53 ozBMI Ewagjtbmrh32.18BSA Calculated1.94BMI Jgzmqvbrxi41 %2-20 Stature Zdcfvnoygs70 %2-20 Weight Oxbvjskzxp18 % Physical ExamToday's exam finds a cooperative [...] AND Treat Status:Hold For- Scheduling Requested for: 10Gdj7986 Ordered;For: Snoring; Ordered By: Mere Simpson Performed: [...] or Ashley Vortex withmouthpiece;Therapy: 23Sep2014 to (Last Rx:46Jgw3338) Requested for: 24Mar2015 OrderedAfrin 12 Hour 0.05 [...] Oral Tablet; TAKE 1 TABLET AT BEDTIME;Therapy: 13Zjt3744 to (Evaluate:76Mbe6541) Requested for: 18Apr2018; LastRx:97Kbi3271 OrderedAtenolol 25 MG Oral Tablet; TAKE 1 TABLET DAILY;Therapy: (Recorded:20Oct2015) to RecordedCyproheptadine HCl - 4 MG Oral Tablet; TAKE 1 TABLET EVERY 8 HOURS DAILY Requested for: 02Sep2017; Last Rx:02Sep2017 OrderedFludrocortisone Acetate 0.1 MG Oral Tablet; take one tablet twice a day;Therapy: (Recorded:20Oct2015) to RecordedGabapentin 300 MG Oral Capsule; TAKE 1 CAPSULE 3 TIMES DAILY;Therapy: 10Aac1886tj (Evaluate:82Ahe0524) Requested for: 18Feb2018; LastRx:18Feb2018 OrderedHyoscyamine Sulfate 0.125MG Oral Tablet Disintegrating; 2 tablets orally every 8 hours Requested for: 28Sep2017; Last Rx:28Sep2017 OrderedLansoprazole 30 MG Oral Capsule Delayed Release; TAKE 1 CAPSULE EVERYMORNING DAILY;Therapy: 14Apr2018 to (Evaluate:86Usl8498) Requested for: 18Apr2018; LastRx:18Apr2018 OrderedMagnesium Oxide 400 MG Oral Tablet; 1 TABLET ORALLY ONCE A DAY;Therapy: (Recorded:23Lyx5372) to RecordedOndansetron HCl - 8 MG Oral Tablet; TAKE 1 TABLET 3 times daily PRN vomiting;Therapy: 16Dec2017 to (Evaluate:84Uyd8403) Requested for: 18Apr2018; LastRx:18Apr2018 OrderedPhenergan 25 MG SUPP; INSERT 1 SUPPOSITORY RECTALLY EVERY 12 HOURS ASNEEDED FOR NAUSEA AND VOMITING;Therapy: 03Nov2015 to (Last Rx:16Dec2017) Requested for: 16Dec2017 OrderedPredniSONE 20 MG Oral Tablet; Take 3 tablets once daily for 5-7 days. To be used in thesetting of a severe asthma flare-up. Please call the office prior to starting;Therapy: 23Sep2014 to (Last Rx:32Chb3789) Requested for: 14Apr2018 OrderedProAir HFA 108 (90 Base) MCG/ACT Inhalation Aerosol Solution; Inhale 2-4 puffs every4-6 hours as needed for cough, wheezingor shortness of breath and prior to exercise;Therapy: 23Sep2014 to (Last Rx:84Wsb1795) Requested for: 24Mar2015 OrderedPromethazine HCl - 25 MG Oral Tablet; 1 tablet orally every 12 hours as needed fornausea/vomiting Requested for: 16Dec2017; Last Rx:16Dec2017 OrderedQvar 80 MCG/ACT Inhalation Aerosol Solution; INHALE TWO PUFFS BY MOUTH TWICEA DAY WITH A SPACER;Therapy: 23Sep2014 to (Last Rx:04Ydi1340) Requested for: 27Apr2016 OrderedTri-Sprintec 0.18/0.215/0.25 MG-35 MCG Oral Tablet;Therapy: 23Mar2018 to RecordedUnspecified Medication; Vitamin B2-400 Oral Capsule1 capsule orally once a day;Therapy: (Recorded:79Rjd1155) to RecordedVitamin D 1000 UNIT Oral Tablet; TAKE 1 TABLET DAILY;Therapy: 14Apr2018 to (Evaluate:44Vkd2807) Requested for: 82Wgu6644; LastRx:29Ymm6594 Ordered Signatures Electronically signed by : Mere Simpson APRN-[facility]– MILWAUKEERadha; Jun 05 2018 10:46AM EST (Author)NormalUH TouchworksDischarge Summaryon 29-13-7878Syqjxjvxu SummarySend Summary:Discharge Summary Providers:Provider Role Provider Name? Referring Dali Mcintosh? Attending Adeola Colon? Primary Zac Daniel Recipients: Adeola Colon MD Baez-Socorro, MD Fredy Marley Natalie, MD - [phone] [[id number]]Dali Mcintosh MD - [phone] [Preferred]Discharge:Summary:Admission Date: .09-Aug-2017 21:44:00Discharge Date: 76-Owy-5040Jzerwgnik Physician at Discharge: Adeola Colon NAdmission Reason: vomiting, hematemesisFinal Discharge Diagnoses: Functional abdominal painProcedures: null Aug 11, 2017Condition at Discharge: SatisfactoryDisposition at Discharge: .HomeVital Signs: T P R BP XsQ3Oshzy 36.6 70 18 126/84 98%Date/Time 08/24 8:58 [...] months, but worse recently. She was admitted [facility] last month for the vomiting. She also [...] Saturday September 02, 2017 at3:30 pm. Location: [place] [address] Fhvdmz-Up Appointment 02: Physician/Dept/Service: Neurology: Caty Simpson Call to Schedule in: 1st available Scheduled Date/Time: 31-Aug-2017 14:00 Location: [address] [place] [address] Mnzwyx-Up Appointment 03: Physician/Dept/Service: ENT (ear, nose, and [...] AttestationLast Updated: 24-Aug-2017 23:59 by Adeola Colon ()[facility] CenterPD ABDOMEN, SINGLE VIEWon 64-66-6322BG ABDOMEN, SINGLE VIEWMRN: [id number] Name: PILI PARIKH STUDY:PD ABDOMEN, SINGLE VIEW; 08/21/2017 12:35 pm INDICATION:Signs/Symptoms: NG placement. COMPARISON:None. ORDERING CLINICIAN:Kelle BOATENG FINDINGS:Tip of NG overlies the gastric body. There is a nonobstructive bowel gas pattern. Visualized soft tissues and osseous structures are unremarkable. The lung bases are clear. IMPRESSION:Tip of NG overlies the gastric body.Electronically signed by: COREY JOHNS, Lincoln County Health SystemNR MRI BRAIN WOon 78-55-0426KG MRI BRAIN WOMRN: [id number] Name: PILI PARIKH STUDY:NR MRI BRAIN WO; [...] Chiari malformation. The study was interpreted at [facility].Electronically signed by: Benita HARDYNationwide Children's Hospital Surgical Pathology Departmenton [id number] Surgical Pathology DepartmentNamPILI Murphy Pathologist: SANAZ MARIate [...] specimen is submitted in toto in one cassette.MXWmxw/08/11/2017NoPenrose HospitalComment on above:Performed By: #### T4FRE ####[facility], [place] [address]MVIKHXHpo 08-10-2017 Amylase enzyme act/vol19 U/GSoimmx43 - 76[facility] Burlington CountyComment on above:Performed By: #### VTDOH ####[place] [address], [place] [address]T-UCAKEDKY PROTEINon 54-05-8835HHN mass conc0.34 mg/dL NormalLourdes Medical Center of Burlington CountyComment on above:Result Comment: REF VALUE< 1.00Performed By: #### KACIH ####[place] [address], [place] [address]IMF AND DIFFERENTIALon 08-10-2017% AUTOMATED IMMATURE GRAN0.3 %Normal0.0 - 1.0[facility] Burlington CountyComment on above:Result Comment: Percent differential counts (%) should be interpreted in the context of the absolute cell counts (cells/L).Performed By: #### KACIH ####[place] [address] [place] [address]% HVUZDBEWCH63.9 %Vujqrj99.0 - 69.0[facility] Burlington CountyComment on above:Performed By: #### VTDOH ####[facility], [place] [address]Kvaquknop/100 WBC Auto (Bld)0.4 %Normal0.0 - 1.0[facility] Burlington CountyComment on above: Performed By: #### MERCEDDOH ####[place] [address], [place] [address]Hqdjxdyee/100 WBC Auto (Bld)0.03 x10E9/LNormal0.00 - 0.10 [facility] Burlington CountyComment on above:Performed By: #### VTDOH ####[facility], [place] [address]Vskfnizsnzx Auto #/vol (Bld)0.29 10*3/uLNormal0.00 - 0.70[facility] Burlington CountyComment on above:Performed By: #### VTDOH ####[facility], [place] [address]Sptxvjjkmyz/100 WBC Auto (Bld)4.2 %Normal0.0 - 5.0[facility] Burlington CountyComment on above:Performed By: #### VTDOH ####[facility], [place] [address]Oydcnagoacw distribution width Auto Ratio (RBC)14.1 %Wsbdct31.5 - 14.5[facility] Burlington CountyComment on above:Performed By: #### VTDOH ####[facility], [place] [address]Tgfmzfibpb Auto Volume Fraction (Bld) 35.4 %Low36.0 - 46.0[facility] Burlington CountyComment on above:Performed By: #### VTDOH ####[facility] [place] [address] Hemoglobin mass conc (Bld)11.0 g/dLLow12.0 - 16.0[facility] Comment on above:Performed By: #### MERCEDDOH ####[facility], [place] [address]Zzrdxhclgtz Auto #/vol (Bld)2.33 10*3/uLNormal1.80 - 4.80[facility] Burlington CountyComment on above:Performed By: #### VTDOH ####[facility] [place] [address] Lymphocytes/100 WBC Auto (Bld)33.8 %Qobixo47.0 - 48.0[facility] Comment on above:Performed By: #### VTDOH ####[facility], [place] [address]CXJV Auto mass conc (RBC)31.1 g/jXTiipde37.0 - 37.0[facility] Burlington CountyComment on above:Performed By: #### VTDOH ####[facility], [place] [address]TTM Auto Entitic volume (RBC)80 gTNwjyxt18 - 102[facility] of Burlington CountyComment on above: Performed By: #### VTDOH ####[facility], [place] [address]Eirtckwrh Auto #/vol (Bld)0.58 10*3/uLNormal0.10 - 1.00[facility] Burlington CountyComment on above:Performed By: #### KACIH ####[facility], [place] [address]Jkxsvomcq/100 WBC Auto (Bld)8.4 %Normal3.0 - 9.0[facility] Burlington CountyComment on above: Performed By: #### MERCEDDOH ####[facility], [place] [address]Drdnkfxjoct Auto #/vol (Bld)3.65 10*3/uLNormal1.20 - 7.70 [facility] Burlington CountyComment on above:Performed By: #### KACIH ####[place] [address], [place] [address]Paoupknte RBC/100 WBC Ratio (Bld)0.0 /100 WBCNormal0.0-0.0[facility] Burlington CountyComment on above:Performed By: #### MERCEDDOH ####[facility], [place] [address]Btoldgwdj Auto #/vol (Bld)256 10*3/cIFtcrqn583 - 400[facility] of Burlington CountyComment on above:Performed By: #### MERCEDDOH ####[facility], [place] [address]UIM Auto #/vol (Bld) 4.40 x10E12/LNormal4.10 - 5.20[facility] Burlington CountyComment on above: Performed By: #### MERCEDDOH ####[facility], [place] [address]XKD Auto #/vol (Bld)6.9 10*3/uLNormal4.5 - 13.5[facility] Burlington CountyComment on above:Performed By: #### VTDOH ####[facility], [place] [address]TZPGBJ DISEASE SEROLOGY PANELon 21-59-6147ZINNJGF ABS, KXT2Tbsylg2 - 14[facility] Burlington CountyComment on above:Result Comment: False negative Deamidated Gliadin Peptide Antibody, IgA results can occur in patients already adhering to a gluten-free diet or patients with IgA deficiency. Tissue Transglutaminase Antibody, IgA is the preferred test for screening patients with suspected Celiac Disease. Performed By: #### T4FRE ####[facility], [place] [address]MWASTJO ABS, IGG<3Amxlcx5 - 14[facility] Comment on above:Result Comment: False negative Deamidated Gliadin Peptide Antibody, IgG results can occur in patients already adhering to a gluten-free diet. Tissue Transglutaminase Antibody, IgA is the preferred test for screening patients with suspected Celiac Disease.Performed By: #### T4FRE ####[facility], [place] [address]OSN AB,IGA<5Ztsrlj1 - 14[facility] Burlington CountyComment on above:Result Comment: Celiac disease is unlikely. False negative Tissue Transglutaminase Antibody, IgA results can occur in approximately 10% of patients with celiac disease, patients already adhering to agluten-free diet, or patients with IgA deficiency.Performed By: #### T4FRE ####[facility], [place] [address]UTD AB,IGG<1 Normal0 - 14[facility] Bur[facility] CountyComment on above:Result Comment: False negative Tissue Transglutaminase Antibody, IgG results can occur in patients a lready adhering to a gluten-free diet. Tissue Transglutaminase Antibody, IgA is the preferred test for screening patients with suspected Celiac Disease. Performed By: #### T4FRE ####[facility], [place] [address]UUYUDAAZRPQ SCREENon 18-31-8052zRMS Coag time (Bld)28 s Slfhjw09 - 36[facility] Burlington CountyComment on above:Result Comment: THE APTT IS NO LONGER USED FOR MONITORING UNFRACTIONATED HEPARIN THERAPY. FOR MONITO RING HEPARIN THERAPY, USE THE HEPARIN ASSAY.Performed By: #### VTDOH ####[facility], [place] [address]TCV Coag RelTime (PPP)1.1 {INR}Normal0.9 - 1.1[facility] Burlington CountyComment on above: Performed By: #### VTDOH ####[facility], [place] [address]Gbtrwpkubwp time (PT) Coag time (PPP)12.1 sNormal9.8 - 12.7[facility] CountyComment on above:Performed By: #### VTDOH ####[facility], [place] [address]RGNYKUB FUNCTION PANELon 36-94-4985DCJ enzyme act/loj414 U/FLqyihk99 - 239[facility] CountyComment on above:Performed By: #### VTDOH ####[facility], [place] [address]CBJ enzyme act/vol39 U/LHigh3 - 28[facility] Burlington CountyComment on above:Result Comment: Patients treated with Sulfasalazine may generate falsely decreased results for ALT.Performed By: #### KACIH ####[facility], [place] [address]POJ enzyme act/vol27 U/LHigh9 - 24[facility] CountyComment on above: Performed By: #### VTDOH ####[facility], [place] [address]Bgklxvqmv mass conc0.4 mg/dLNormal0.0 - 0.9[facility] CountyComment on above:Performed By: #### VTDOH ####[facility], [place] [address]Pukmydcjo.direct mass conc0.1 mg/dL Normal0.0 - 0.3[facility] CountyComment on above:Performed By: #### VTDOH ####[facility], [place] [address]Swnktsq mass conc5.7 g/dLLow6.2 - 7.7[facility] CountyComment on above: Performed By: #### VTDOH ####[facility], [place] [address]AFQGKGpu 90-49-7853Nedxzu enzyme act/vol16 U/LNormal9 - 82[facility] CountyComment on above:Result Comment: Venipuncture immediately after or during the administration of Metamizole may lead to falsely low results. Testing should be performed immediately prior to Metamizole dosing.Performed By: #### VTDOH ####[facility], [place] [address]MVMFI FUNCTION PANELon 87-67-1221Jnueddg mass conc3.8 g/dLNormal3.4 - 5.0[facility] CountyComment on above:Performed By: #### T4FRE ####[facility] [place] [address] Performed By: #### VTDOH ####[facility], [place] [address]Erdko gap 3 molar conc13 mmol/DEoeyqj78 - 30[facility] CountyComment on above:Performed By: #### T4FRE ####[facility], [place] [address]Byudgyi mass conc9.2 mg/dLNormal8.5 - 10.7[facility] CountyComment on above:Performed By: #### T4FRE ####[facility], [place] [address]Ljbapwhi molar conc 106 mmol/NKioluw99 - 107[facility] CountyComment on above:Performed By: #### T4FRE ####[facility], [place] [address]Hqcwdxxvga mass conc0.56 mg/dLNormal0.50 - 1.00[facility] Comment on above:Performed By: #### T4FRE ####[facility], [place] [address]Ngnxthf mass zkya927 mg/dGGyra94 - 99[facility] CountyComment on above:Performed By: #### T4FRE ####[facility], [place] [address]LNA4 molar conc (Bld)26 mmol/LNormal 18 - 27[facility] CountyComment on above:Performed By: #### T4FRE ####[facility], [place] [address]Qblddnftp mass conc4.3 mg/dLNormal3.0 - 5.4[facility] CountyComment on above: Result Comment: The performance characteristics of phosphorus testing in heparinized plasma have been validated by the individual laboratory site where testing is performed. Testing on heparinizedplasma is not approved by the FDA; however, such approval is not necessary.Performed By: #### T4FRE ####[facility], [place] [address]Gymenptpl molar conc 3.9 mmol/LNormal3.5 - 5.3[facility] CountyComment on above:Performed By: #### T4FRE ####[facility], [place] [address]Eyhtfj molar luiy037 mmol/YAamvwi359 - 145[facility] Comment on above:Performed By: #### T4FRE ####[facility], [place] [address]Kpvs nitrogen mass conc11 mg/dLNormal6 - 23[facility] CountyComment on above:Performed By: #### T4FRE ####[facility], [place] [address]VFJSAXErz 08-09-2017 Amylase enzyme act/vol22 U/MNyepzp18 - 76[facility] CountyComment on above:Performed By: #### AMIRA ####[facility], [place] [address]Z-TUPPJNIP PROTEINon 83-55-8406ZJF mass conc0.36 mg/dL NormalL[facility] of Burlington CountyComment on above:Result Comment: REF VALUE< 1.00Performed By: #### CRP ####[place] [id number], [place] [address]IUG AND DIFFERENTIALon 08-09-2017% AUTOMATED IMMATURE GRAN0.3 %Normal0.0 - 1.0[facility] CountyComment on above:Result Comment: Percent differential counts (%) should be interpreted in the context of the absolute cell counts (cells/L).Performed By: #### CBCDF ####[place] [address] [place] [address]% DAKEGJIOSL52.6 %Oxfzwc11.0 - 69.0[facility] CountyComment on above:Performed By: #### CBCDF ####[place] [id number], [place] [address]Nqexmznqf/100 WBC Auto (Bld)0.04 x10E9/LNormal0.00 - 0.10[facility] CountyComment on above:Performed By: #### CBCDF ####[place] [address], [place] [address]Yvozoaoit/100 WBC Auto (Bld)0.5 %Normal0.0 - 1.0[facility] CountyComment on above:Performed By: #### CBCDF ####[place] [address], [place] [address]Hudojayuuno Auto #/vol (Bld)0.28 10*3/uLNormal0.00 - 0.70[facility] CountyComment on above:Performed By: #### CBCDF ####[place] [address], [place] [address]Tvgeiswofay/100 WBC Auto (Bld)3.6 %Normal0.0 - 5.0[facility] CountyComment on above:Performed By: #### CBCDF ####[place] [address], [place] [address]Fdnapxxbzay distribution width Auto Ratio (RBC)14.4 %Ysjpib06.5 - 14.5[facility] CountyComment on above:Performed By: #### CBCDF ####[place] [address], [place] [address]Xntzoqulzh Auto Volume Fraction (Bld) 37.7 %Waubqp05.0 - 46.0[facility] CountyComment on above:Performed By: #### CBCDF ####[facility] [place] [address] Hemoglobin mass conc (Bld)11.5 g/dLLow12.0 - 16.0[facility] Comment on above:Performed By: #### CBCDF ####[facility], [place] [address]Agwtyststbj Auto #/vol (Bld)2.20 10*3/uLNormal1.80 - 4.80[facility] CountyComment on above:Performed By: #### CBCDF ####[facility] [place] [address] Lymphocytes/100 WBC Auto (Bld)28.2 %Jwhwjv54.0 - 48.0[facility] Comment on above:Performed By: #### CBCDF ####[facility], [place] [address]ZYLY Auto mass conc (RBC)30.5 g/dLLow31.0 - 37.0[facility] CountyComment on above:Performed By: #### CBCDF ####[facility], [place] [address]HUN Auto Entitic volume (RBC)82 oAVfuqpd73 - 102[facility] CountyComment on above: Performed By: #### CBCDF ####[facility], [place] [address]Ajrieofvj Auto #/vol (Bld)0.53 10*3/uLNormal0.10 - 1.00[facility] CountyComment on above:Performed By: #### CBCDF ####[facility], [place] [address]Ispmnmjya/100 WBC Auto (Bld)6.8 %Normal3.0 - 9.0[facility] CountyComment on above: Performed By: #### CBCDF ####[facility], [place] [address]Kxhizjrxdob Auto #/vol (Bld)4.73 10*3/uLNormal1.20 - 7.70 [facility] CountyComment on above:Performed By: #### CBCDF ####[facility], [place] [address]Qkpdblisd RBC/100 WBC Ratio (Bld)0.0 /100 WBCNormal0.0-0.0[facility] CountyComment on above:Performed By: #### CBCDF ####[place] [id number], [place] [address]Rcbwijsjj Auto #/vol (Bld)290 10*3/hOXsenev419 - 400[facility] CountyComment on above:Performed By: #### CBCDF ####[place] [address], [place] [address]WWL Auto #/vol (Bld) 4.62 x10E12/LNormal4.10 - 5.20[facility] CountyComment on above: Performed By: #### CBCDF ####[facility], [place] [address]RVB Auto #/vol (Bld)7.8 10*3/uLNormal4.5 - 13.5[facility] CountyComment on above:Performed By: #### CBCDF ####[place] [id number], [place] [address]ASCFXNHEPQQ SCREENon 80-81-2982xIWV Coag time (Bld)29 dKlodza26 - 36[facility] Comment on above:Result Comment: THE APTT IS NO LONGER USED FOR MONITORING UNFRACTIONATED HEPARIN THERAPY. FOR MONITORING HEPARIN THERAPY, USE THE HEPARIN ASSAY.Performed By: #### VTDOH ####[facility], [place] [address]ZEB Coag RelTime (PPP)1.2 {INR}High0.9 - 1.1[facility] CountyComment on above:Performed By: #### VTDOH ####[facility], [place] [address]Dsqxkhsaghd time (PT) Coag time (PPP) 12.9 sHigh9.8 - 12.7[facility] CountyComment on above:Performed By: #### VTDOH ####[facility] [place] [address] ESR-WESTERGRENon 98-56-4689QJQ-WESTERGREN8 mm/hNormal0 - 13[facility] CountyComment on above:Performed By: #### VTDOH ####[facility], [place] [address]HSWzt 01-54-8661XII79 U/LNormal5 - 20 [facility] CountyComment on above:Performed By: #### GGT ####[facility], [place] [address]AYWSBTHFXU A1Con 09-16-6780Hbiggmpjhp A1c/Hemoglobin.total mass fraction (Bld)5.6 %NormalL[facility] of Burlington CountyComment on above:Result Comment: Diagnosis of Diabetes- Adults Non-Diabetic: < or = 5.6% Increased risk for developing diabetes: 5.7- 6.4% Diagnostic of diabetes: > or = 6.5%. Monitoring of Diabetes Age (y) Therap eutic Goal (%) Adults: >18 <7.0 Pediatrics: 13-18 <7.5 7-12 <8.0 0- 6 7.5-8.5 [employer]. Diabetes Care 33(S1), Nov 2009.Performed By: #### VTDOH ####[facility] [place] [address] HEPATIC FUNCTION PANELon 40-93-3388HQL enzyme act/imv741 U/DCsfpbr61 - 239[facility] CountyComment on above:Performed By: #### HEPFP ####[facility], [place] [address]IDL enzyme act/vol41 U/LHigh3 - 28[facility] CountyComment on above:Result Comment: Patients treated with Sulfasalazine may generate falsely decreased results for ALT.Performed By: #### HEPFP ####[facility], [place] [address]PLZ enzyme act/vol25 U/LHigh9 - 24[facility] CountyComment on above:Performed By: #### HEPFP ####[facility], [place] [address]Cqahwuzvu mass conc0.3 mg/dLNormal0.0 - 0.9[facility] CountyComment on above:Performed By: #### HEPFP ####[facility], [place] [address]Drchayyhd.direct mass conc0.1 mg/dLNormal0.0 - 0.3[facility] CountyComment on above: Performed By: #### HEPFP ####[facility], [place] [address]Omjwwnz mass conc6.7 g/dLNormal6.2 - 7.7[facility] CountyComment on above:Performed By: #### HEPFP ####[facility], [place] [address]NGRU + TIBCon 08-09-2017% SATURATION 13 %Low25 - 45[facility] CountyComment on above:Performed By: #### IRONT ####[facility], [place] [address]Oghz mass conc53 ug/ySZdrqgz59 - 138[facility] CountyComment on above: Performed By: #### IRONT ####[facility], [place] [address]KPYY093 ug/wIEpwsqh069 - 445[facility] Comment on above:Performed By: #### IRONT ####[facility], [place] [address]PCAYKVpl 39-53-6265Ihpllg enzyme act/vol17 U/L Normal9 - 82[facility] CountyComment on above:Result Comment: Venipuncture immediately after or during the administration of Metamizole may lead to falsely low results. Testing should be performed immediately prior to Metamizole dosing.Performed By: #### LIPAS ####[facility], [place] [address]YNSIV FUNCTION PANELon 58-71-2372Awjdpje mass conc 4.3 g/dLNormal3.4 - 5.0[facility] CountyComment on above:Performed By: #### VTDOH ####[facility] [place] [address] Performed By: #### HEPFP ####[facility], [place] [address]Ghpyo gap 3 molar conc13 mmol/LUckrdf85 - 30[facility] CountyComment on above:Performed By: #### VTDOH ####[facility], [place] [address]Bwfjwzq mass conc9.5 mg/dLNormal8.5 - 10.7[facility] CountyComment on above:Performed By: #### VTDOH ####[facility], [place] [address]Eduqnesp molar conc 105 mmol/SClpseg60 - 107[facility] CountyComment on above:Performed By: #### VTDOH ####[facility], [place] [address]Aexdfbbogo mass conc0.50 mg/dLNormal0.50 - 1.00[facility] Comment on above:Performed By: #### VTDOH ####[facility], [place] [address]Flrdtvi mass conc83 mg/zIFeieas70 - 99[facility] CountyComment on above:Performed By: #### VTDOH ####[facility], [place] [address]NFX1 molar conc (Bld)27 mmol/L Mhxsmo94 - 27[facility] CountyComment on above:Performed By: #### VTDOH ####[facility] [place] [address] Phosphate mass conc4.1 mg/dLNormal3.0 - 5.4[facility] CountyComment on above:Result Comment: The performance characteristics of phosphorus testing in heparinized plasma have been validated by the individual laboratory site where testing is performed. Testing on heparinizedplasma is not approved by the FDA; however, such approval is not necessary.Performed By: #### VTDOH ####[facility], [place] [address]Yopwdlfun molar conc 4.1 mmol/LNormal3.5 - 5.3[facility] CountyComment on above:Performed By: #### VTDOH ####[facility] [facility], [place] [address]Nojlff molar mxpo542 mmol/UYwfmpq817 - 145[facility] Comment on above:Performed By: #### VTDOH ####[place] [id number], [place] [address]Roed nitrogen mass conc11 mg/dLNormal6 - 23[facility] CountyComment on above:Performed By: #### VTDOH ####[place] [id number] [facility], [place] [address]IRAZTQYVO,FREEon 31-97-6134AFVWBEXPK,FREE1.08 ng/dLNormal0.78 - 1.48[facility] Comment on above:Result Comment: Thyroxine Free testing is performed using different testing methodology at [facility] than at other [facility]. Direct result comparisons should only be made within the same method.. Patients receiving more than 5 mg/day of biotin may have interference in test results. A sample should be taken no sooner than eight hours after previous dose. Contact [phone] additional information.Performed By: #### T4FRE ####[place] [id number] [place], [place] [address]JHDbm 22-24-8571Vzwksydcuer Qn1.71 m[IU]/LNormal0.44 - 3.98[facility] Comment on above:Result Comment: TSH testing is performed using different testing methodology at [facility] than at other [facility]. Direct result comparisons should only be made within the same method.. Patients receiving more than 5 mg/day of biotin may have interference in test results. A sample should be taken no sooner than eight hours after previous dose. Contact [phone] for additional information.Performed By: #### TSH2 ####[facility], [place] [address]RSUSMTF D, 25-HYDROXYon 07-18-3545ZGXPTIV D, 25-GQTNKCI51 ng/mLAbnoPenrose Hospital Comment on above:Result Comment: .DEFICIENCY: < 20 NG/MLINSUFFICIENCY: 20-29 NG/MLOPTIMUM LEVEL: 30-80 NG/MLPOSSIBLE TOXICITY: > 80 NG/MLTHIS ASSAY ACCURATELY QUANTIFIES THE SUM OFVITAMIN D3, 25-HYDROXY AND VITD2,25-HYDROXY. Performed By: #### VTDOH ####[facility] [place] [address] Vital Signs Date TimeVital SignValuePerforming BpvgekdjrUptsbccy87-47-7699 20:30-0500Heart rate51 /minSt[facility]it [facility]02-19-2025 20:30-0500 Respiratory rate12 /[facility]19[facility]2025 20:30-7163PjA8% (BldA) [Mass fraction]98 %[facility]02-19-2025 19:30-0500Diastolic blood sbfzglqe127 mm[Hg][facility]02-19-2025 19:30-0500Heart rate48 /min[facility]02-19-2025 19:30-0500Mean blood pxyljkzp881 mm[Hg][facility]02-19-2025 19:30-0500 Respiratory rate13 /min[facility]02-19-2025 19:30-0930LdA0% (BldA) [Mass fraction]98 %[facility]02-19-2025 19:30-0500Systolic blood gyaipjky785 mm[Hg][facility]02-19-2025 17:53-0500Body nwkanttfzhx40.14 [degF][facility]02-19-2025 17:53-0500Diastolic blood mm[Hg][facility]02-19-2025 17:53-0500Heart rate64 /min[facility]02-19-2025 17:53-0500Respiratory rate20 /min[facility] 01-16-2025 17:53-8061SyV3% (BldA) [Mass fraction]100 %[facility]02-19-2025 17:53-0500Systolic blood mm[Hg][facility]12-02-2024 00:01-0500Diastolic blood sauowjij85 mm[Hg][facility] [employer] Work Phone: [phone] [place], [place] 8983512-02-2024 00:01-0500 Heart rate72 /[facility]Who[facility] Work Phone: [phone] [place], [place] [address]983512-02-2024 00:01-0500 Respiratory rate16 /[employer] Work Phone: [facility]12-02-2024 00:01-0500 SaO2% (BldA) [Mass fraction]99 %[employer] Work Phone: [facility]12-02-2024 00:01-0500 Systolic blood siictuan151 mm[Hg][employer] Work Phone: [phone]-[facility] [place]4[facility]12-01-2024 18:07-0500 Body muojsp362.48 cmSSubHub Work Phone: [phone]-[facility] [place]7[facility]12-01-2024 18:07-0500 Body tmpamqvleoz67.6 [degF][employer] Work Phone: [phone] [place], [place] 8983512-01-2024 18:07-0500 Body .85 kgSerphoenixville hospital [facility] Work Phone: [phone]09-06-2024 23:10-0400 Diastolic blood mwcklaep73 mm[Hg]Services [facility] [employer] Work Phone: [phone]09-06-2024 23:10-0400 Heart rate95 /[facility] [employer] Work Phone: [phone] [place], [place] [address]2009-06-2024 23:10-0400 Respiratory rate18 /[facility] [employer] Work Phone: [phone] [place], [place] [address]2009-06-2024 23:10-0400 SaO2% (BldA) [Mass fraction]99 %[facility] [employer] Work Phone: [phone])[address] [place], [place] [address]2009-06-2024 23:10-0400 Systolic blood mm[Hg]Services [facility] [employer] Work Phone: [phone]09-06-2024 20:35-0400 Body .48 cmSGlenbeigh Hospital Work Phone: [phone] [place], [place] [address]2009-06-2024 20:35-0400 Body dubgaphmaoe79.1 [degF]Services [facility] [employer] Work Phone: [phone]09-06-2024 20:35-0400 Body fujxhl78.71 kgSerphoenixville hospital [employer] Work Phone: [phone] [place], [place] 8983509-02-2024 22:55-0400 Diastolic blood jdcwidqs97 mm[Hg]Cresencio Abel [facility]09-02-2024 22:55-0400Heart rate50 /minCresencio Abel [facility]09-02-2024 22:55-0400Mean blood ozywbsba92 mm[Hg]Cresencio Abel [facility]09-02-2024 22:55-0400 Respiratory rate16 /minTim Colten [facility]09-02-2024 22:55-9136BiU7% (BldA) [Mass fraction]98 %Cresencio Abel [address] [place], [place] 0678409-02-2024 22:55-0400 Systolic blood mm[Hg]Cresencio Abel [address]09-02-2024 19:28-0400Body crjncrohuee33.06 [degF]Cresencio Abel [address]09-02-2024 19:28-0400 Diastolic blood dtyoechl17 mm[Hg]Cresencio Abel [address]09-02-2024 19:28-0400Heart rate55 /minTim Colten [address] [place], [place] 0678409-02-2024 19:28-0400 Respiratory rate16 /minTim Colten [facility]09-02-2024 19:28-8166FxS6% (BldA) [Mass fraction]97 %Cresencio Abel [facility]09-02-2024 19:28-0400 Systolic blood eevcfwip739 mm[Hg]Cresencio Abel [address] [place], [place] 0678404-22-2024 00:10-0400 Diastolic blood xbdgorry12 mm[Hg]Services [facility] Work Phone: [facility]04-22-2024 00:10-0400 Heart htir744 /[facility] Work Phone: [facility]04-22-2024 00:10-0400 Respiratory rate18 /[facility] Work Phone: [facility]04-22-2024 00:10-0400 SaO2% (BldA) [Mass fraction]100 %Services [employer] Work Phone: [facility]04-22-2024 00:10-0400 Systolic blood mm[Hg]Services [facility] Work Phone: [facility]04-21-2024 22:03-0400 Body kxfeqd422.02 cmServices [facility] Work Phone: [facility]04-21-2024 22:03-0400 Body jzvzulnvloz57.3 [degF]Services [facility] Work Phone: [facility]04-21-2024 22:03-0400 Body ntwier43.2 kgServices [facility] Work Phone: [facility]04-18-2024 13:43-0400 Diastolic blood qezoaenh06 mm[Hg][facility] 03-15-2024 13:43-0400Heart rate51 /[facility] 13:43-0400Mean blood nwlagtdt579 mm[Hg][facility]04-18-2024 13:43-0400[facility]16 [facility] 13:43-6808FgU6% (BldA) [Mass fraction] 100 %[facility]04-18-2024 13:43-0400Systolic blood ormcizen406 mm[Hg][facility]04-18-2024 12:01-0400Diastolic blood zapuwmry02 mm[Hg][facility]04-18-2024 12:01-0400Heart rate52 /[facility] 12:01-0400Mean blood nwaxkkrk741 mm[Hg][facility]04-18-2024 12:01-4171HnX0% (BldA) [Mass fraction]100 %[facility]04-18-2024 12:01-0400Systolic blood pressure 148 mm[Hg][facility]04-18-2024 10:35-0400Body fitiueckwoa71.52 [degF][facility]04-18-2024 10:35-0400Diastolic blood udciixid20 mm[Hg][facility]04-18-2024 10:35-0400Heart rate60 /[facility]04[facility] 10:35-0400Respiratory rate18 /[facility]04[facility]2024 10:35-9919OjB3% (BldA) [Mass fraction]98 %[facility]04-18-2024 10:35-0400Systolic blood pressure 143 mm[Hg][facility]04-16-2024 22:00-0400 Diastolic blood daejhbrh885 mm[Hg]Femi Roman [address] [place], [place] 0678404-16-2024 22:00-0400Heart rate53 /minFemi Roman [address] [place], [place] 0678404-16-2024 22:00-0400Mean blood tohfszof758 mm[Hg]Femi Roman [address] [place], [place] 0678404-16-2024 22:00-3830ToP9% (BldA) [Mass fraction]100 %Femi Roman [address] [place], [place] 0678404-16-2024 22:00-0400 Systolic blood ufukbamz300 mm[Hg]Femi Jessie [address] [place], [place] 0678404-16-2024 21:00-0400 Diastolic blood qyeyqjpq365 mm[Hg]Femi Jessie [address] [place], [place] 0678404-16-2024 21:00-0400Heart rate93 /minFemi Roman [address] [place], [place] 0678404-16-2024 21:00-0400Mean blood ajousnuz575 mm[Hg]Femi Roman [address] [place], [place] 0678404-16-2024 21:00-0400 Respiratory rate21 /minJomarylu Roman [address] [place], [place] 0678404-16-2024 21:00-2986HxS1% (BldA) [Mass fraction]98 %Femi Roman [address] [place], [place] 0678404-16-2024 21:00-0400 Systolic blood hmfgjuxl080 mm[Hg]Femi Roman [address] [place], [place] 0678404-16-2024 20:00-0400 Diastolic blood ydoqbdjb510 mm[Hg]Femi Roman [address] [place], [place] 0678404-16-2024 20:00-0400Heart rate50 /Tiffany Roman [address] [place], [place] 0678404-16-2024 20:00-0400Mean blood liydmvhh442 mm[Hg]Femi Roman [address] [place], [place] 0678404-16-2024 20:00-0400 Systolic blood wzdcgiio462 mm[Hg]Femi Roman [address] [place], [place] 0678404-16-2024 19:38-0400 Respiratory rate14 /minFemi Roman [address] [place], [place] 0678404-16-2024 18:36-0400 Respiratory rate18 /minJomarylu Jessie [address] [place], [place] 0678404-16-2024 17:51-0400Body aoelsajnibj25.24 [degF]Femi Roman [address] [place], [place] 0678404-16-2024 17:36-0400Body uinwikotslp52.24 [degF]Femi Roman [facility]04-16-2024 17:36-0400Heart rate61 /Tiffany Roman [facility]04-16-2024 17:36-0400 Respiratory rate18 /Tifafny Roman [facility]09-03-2023 18:09-0400Body cvbywl495.48 cmSSub[employer] Work Phone: [facility]2023 18:09-0400 Body aunfcdmfezn56.6 [degF]Services [employer] Work Phone: [phone]-[facility]-03-2023 18:09-0400 Body oueeup27 kgSerphoenixville hospital [employer] Work Phone: [phone]-[facility]09-03-2023 18:09-0400 Diastolic blood mm[Hg]Services [employer] Work Phone: [phone]-[facility] [place]2[facility]09-03-2023 18:09-0400 Heart rate87 /[employer] Work Phone: [phone]-[facility] [place]2[facility]09-03-2023 18:09-0400 Respiratory rate18 /[employer] Work Phone: [phone]-[facility] [place]5[facility]09-03-2023 18:09-0400 SaO2% (BldA) [Mass fraction]98 %Services [employer] Work Phone: [phone]-[facility] [place]2[facility]09-03-2023 18:09-0400 Systolic blood wrobimuk125 mm[Hg]Services [employer] Work Phone: 1([phone])240-[facility] [place]4[facility]06-28-2023 13:11-0400 Diastolic blood otzijrtd29 mm[Hg]Services [employer] Work Phone: [facility]06-28-2023 13:11-0400 Heart rate60 /[employer] Work Phone: [phone]-[facility]06-28-2023 13:11-0400 Respiratory rate16 /[facility]Smary [facility] [employer] Phone: [phone]-[facility] [place]1[facility]06-28-2023 13:11-0400 SaO2% (BldA) [Mass fraction]97 %Services [employer] Phone: [facility]06-28-2023 13:11-0400 Systolic blood smwoufct912 mm[Hg]Services [employer] Phone: [phone]-[facility] [place]8[facility]06-28-2023 11:56-0400 Inhaled oxygen flow rate6 L/[facility] [employer] Phone: [phone]-[facility] [place]3[facility]06-28-2023 11:54-0400 Body iaeyqbabqmm09.2 [degF]Services [employer] Phone: [phone]-[facility] [place]9[facility]06-28-2023 09:39-0400 Body .02 cmSmary [facility] [employer] Phone: [phone]-[facility] [place]6[facility]06-28-2023 09:39-0400 Body mass index (BMI) [Percentile] Per age and sex96.6 %Services [facility] [employer] Phone: [phone]-[facility] [place]2[facility]06-28-2023 09:39-0400 Body mass index (BMI) [Ratio]33.6 kg/d8Nmosunbd [employer] Phone: [facility]06-28-2023 09:39-0400 Body kaglpf56.18 kgSerphoenixville hospital [employer] Phone: [facility]06-26-2023 08:00-0400 Body kewgsp948.48 cmThomas Olexa Other [employer] Other 06-26-2023 08:00-0400Body mass index (BMI) [Ratio] 34.75 kg/l8Qmebor Olexa Other [employer] Other 06-26-2023 08:00-0400Body cysxco27.18 kgThomas Olexa Other [employer] Other 02-10-2023 14:08-0500Body .48 cmServices [place] Work Phone: 1([phone])230-[facility]02-10-2023 12:34-0500 Body enjrbhbykgz89.1 [degF]Services [facility] [employer] Work Phone: 1(474)924-[address] [place], [place] 7992702-10-2023 12:34-0500 Diastolic blood qqexhxhb61 mm[Hg]Services [facility] [employer] Work Phone: 1(177)[address]02-10-2023 12:34-0500 Heart rate75 /[facility] [employer] Work Phone: 1(114)226-[address] [place], [place] 7992702-10-2023 12:34-0500 SaO2% (BldA) [Mass fraction]100 %Services [facility] [place] Work Phone: 1(288)373-[address] [place], [place] 7992702-10-2023 12:34-0500 Systolic blood mm[Hg]Services [facility] [employer] Work Phone: 1(620)069-[address] [place], [place] 7992702-10-2023 11:57-0500 Respiratory rate18 /[facility] [employer] Work Phone: 1(411)058-[address] [place], [place] 7992702-10-2023 06:00-0500 Body pblucf31.2 kgSerlakewood regional medical centeres [facility] [employer] Work Phone: 1(489)292-[address] [place], [place] 7992702-09-2023 18:29-0500 Diastolic blood atdanjji78 mm[Hg]Services [facility] [employer] Work Phone: 1(257)188-[address] [place], [place] 7992702-09-2023 18:29-0500 Heart rate64 /[facility] [employer] Work Phone: 1(213)881-[address] [place], [place] 7992702-09-2023 18:29-0500 Respiratory rate16 /[facility] [employer] Work Phone: 1(860)007-[address] [place], [place] 7992702-09-2023 18:29-0500 SaO2% (BldA) [Mass fraction]98 %Services [place] Work Phone: 1(229)[address]02-09-2023 18:29-0500 Systolic blood ctpjlroo485 mm[Hg]Services [facility] [place] Work Phone: 1(378)[address] [place], [place] 4106302-09-2023 11:12-0500 Body dgsewa305.48 [facility] Work Phone: 1(760)[address] [place], [place] 4106302-09-2023 11:12-0500 Body wanjmsqxgcj76 [degF]Services [facility] [place] Work Phone: 1(560)21300 [address]02-09-2023 11:12-0500 Body nczcav94.11 [facility]Ser[facility] [employer] Work Phone: 1(434)[address] [place], [place] 4106302-05-2023 04:00-0500 Heart rate62 /[employer] Work Phone: 1(716)[address] [place], [place] 4106302-05-2023 04:00-0500 Respiratory rate18 /[employer] Work Phone: 1(063)[address] [place], [place] 4106302-05-2023 04:00-0500 SaO2% (BldA) [Mass fraction]100 %Services [facility] [place] Work Phone: 1(089)[address] [place], [place] 4106302-05-2023 02:37-0500 Diastolic blood xcihoxlc97 mm[Hg]Services [facility] [place] Work Phone: 1(763)[address] [place], [place] 4106302-05-2023 02:37-0500 Systolic blood skaswdth279 mm[Hg]Services [facility] [place] Work Phone: 1(412)[address] [place], [place] 4106302-05-2023 01:14-0500 Body cqassb142.48 [facility] CenterWoraPay [facility] [employer] Work Phone: 1(733)54500 [address]02-05-2023 01:14-0500 Body nvywhdkvbeb71 [degF]Services [facility] [place] Work Phone: 1(177)54300 [address]02-05-2023 01:14-0500 Body .11 kgSerlakewood regional medical centerC[facility] [employer] Work Phone: 1(027)539-[facility]02-03-2023 12:11-0500 Heart rate70 /[facility]SGlen[facility] [employer] Work Phone: 1(694)18000 [address]02-03-2023 12:08-0500 Body hpdapx235.48 [facility] [employer] Work Phone: 1(855)98300 [address]02-03-2023 12:08-0500 Body owkmueclbdz52.7 [degF]Services [facility] [place] Work Phone: 1(442)65500 [address]02-03-2023 12:08-0500 Body sxeqyu23 kg[facility] [employer] Work Phone: 1(137)13300 [address]02-03-2023 12:08-0500 Diastolic blood ryvnyofz57 mm[Hg]Services [facility] [employer] Work Phone: 1(324)47600 [address]02-03-2023 12:08-0500 Respiratory rate18 /[facility] [employer] Work Phone: 1(128)40000 [address]02-03-2023 12:08-0500 SaO2% (BldA) [Mass fraction]99 %Services [facility] [employer] Work Phone: 1(218)[address] [place], [place] 4106302-03-2023 12:08-0500 Systolic blood digpcflg581 mm[Hg]Services [facility] [employer] Work Phone: 1(131)[address] [place], [place] 4106312-13-2022 15:15-0500 Body .48 [facility] [employer] Work Phone: 1(090)28000 [address]12-13-2022 15:15-0500 Body vqssemzijwv04.4 [degF]Services [facility] [employer] Work Phone: 1(033)46600 [address]12-13-2022 15:15-0500 Body iwmpis25.64 kgMer[facility] [employer] Work Phone: 1(201)85400 [address]12-13-2022 15:15-0500 Diastolic blood vbfvcoel66 mm[Hg]Services [facility] [employer] Work Phone: 1(419)[address] [place], [place] 4106312-13-2022 15:15-0500 Heart rate95 /minSS[employer] Work Phone: 1(868)[address] [place], [place] 4106312-13-2022 15:15-0500 Respiratory rate16 /[employer] Work Phone: 1(251)[address] [place], [place] 4106312-13-2022 15:15-0500 SaO2% (BldA) [Mass fraction]100 %Services [facility] [place] Work Phone: 1419)[address] [place], [place] 4106312-13-2022 15:15-0500 Systolic blood rgewjqsb733 mm[Hg]Services [facility] [place] Work Phone: 1(746)[address] [place], [place] 4106312-11-2022 13:40-0500 Diastolic blood bjnuorwu10 mm[Hg]Services [facility] [place] Work Phone: 1(300)[address] [place], [place] 4106312-11-2022 13:40-0500 Heart rate68 /minSLevant Power Work Phone: 1419)[address] [place], [place] 4106312-11-2022 13:40-0500 Respiratory rate16 /minSSocialMaticajack [facility] [place] Work Phone: 1(002)[address] [place], [place] 4106312-11-2022 13:40-0500 SaO2% (BldA) [Mass fraction]100 %Services [facility] [place] Work Phone: 1(042)[address] [place], [place] 4106312-11-2022 13:40-0500 Systolic blood sfkpooga328 mm[Hg]Services [facility] [place] Work Phone: 1(633)[address] [place], [place] 4106312-11-2022 11:05-0500 Body .2 [degF]Services [facility] [place] Work Phone: 1(847)[address] [place], [place] 4106312-11-2022 11:04-0500 Body fsymhm831.75 cmServices [place] Work Phone: 1(438)[address] [place], [place] 4106312-11-2022 11:04-0500 Body hgqpyq76 kgServices [place] Work Phone: 1(257)[address] [place], [place] 4106312-06-2022 09:53-0500 Diastolic blood pyysndpb32 mm[Hg]Services [facility] [place] Work Phone: 1(889)15000 [address]12-06-2022 09:53-0500 Heart rate50 /minSLevant Power Work Phone: 1(829)7[address]12-06-2022 09:53-0500 Respiratory rate18 /minSmary [facility] [place] Work Phone: 1(472)[address]12-06-2022 09:53-0500 SaO2% (BldA) [Mass fraction]98 %Services [facility] [employer] Work Phone: 1(969)81100 [address]12-06-2022 09:53-0500 Systolic blood jekprjpd675 mm[Hg]Services [facility] [employer] Work Phone: 1(929)41900 [address]12-06-2022 03:00-0500 Body tifjfu558.48 cmSLake [facility] Community [facility] [place] Work Phone: 1(847)[address] [place], [place] 4106312-06-2022 03:00-0500 Body hgkyricetov81.4 [degF]Services [facility] [place] Work Phone: 1(384)96200 [address]12-06-2022 03:00-0500 Body tijuei31 kgSerPal[facility] [place] Work Phone: 1(432)04300 [address]12-04-2022 10:05-0500 Diastolic blood lfocayxo47 mm[Hg]Services [facility] [place] Work Phone: 1(769)62200 [address]12-04-2022 10:05-0500 Heart rate59 /minSmary [facility] [place] Work Phone: 1(740)177-[address] [place], [place] 7992712-04-2022 10:05-0500 Respiratory rate18 /[facility] CenterSocialMaticajack [facility] [place] Work Phone: 1(982)49500 [address]12-04-2022 10:05-0500 SaO2% (BldA) [Mass fraction]98 %Services [facility] [employer] Work Phone: 1(815)69[address]12-04-2022 10:05-0500 Systolic blood rmjctzwi657 mm[Hg]Services [facility] [place] Work Phone: 1(368)637-[address] [place], [place] 7992712-04-2022 08:50-0500 Body szonjj724.48 [facility] [employer] Work Phone: 1(112)14700 [address]12-04-2022 08:50-0500 Body owktfgzlrvs76.2 [degF]Services [facility] [employer] Work Phone: 1(801)56200 [address]12-04-2022 08:50-0500 Body .91 kgSerSouth[facility] [employer] Work Phone: 1(129)62200 [address]12-02-2022 12:01-0500 Body gcagze781.48 [facility] [employer] Work Phone: 1(735)13500 [address]12-02-2022 12:01-0500 Body osdysfiiygr58.8 [degF]Services [facility] [employer] Work Phone: 1(591)288-[address] [place], [place] 7992712-02-2022 12:01-0500 Body nyrhhd55 kgSerSouth[facility] Hospital [employer] Work Phone: 1(093)44600 [address]12-02-2022 12:01-0500 Diastolic blood bnrpyesx70 mm[Hg]Services [facility] [employer] Work Phone: 1(530)50500 [address]12-02-2022 12:01-0500 Heart rate60 /[facility] [place] Work Phone: 1(609)327-[address] [place], [place] 7992712-02-2022 12:01-0500 Respiratory rate18 /[facility] [place] Work Phone: 1(181)828-[address] [place], [place] 7992712-02-2022 12:01-0500 SaO2% (BldA) [Mass fraction]99 %Services [facility] [place] Work Phone: 1(518)087-[address] [place], [place] 7992712-02-2022 12:01-0500 Systolic blood ooysboiz029 mm[Hg]Services [facility] [employer] Work Phone: 1(989)76300 [address]09-25-2022 12:00-0400 Body vdoavkeulgd08 [degF]Services [employer] Phone: 1(680)00976 [address]09-25-2022 12:00-0400 Diastolic blood acwkutuy71 mm[Hg]Services [employer] Work Phone: [address] [place], [place] 2592009-25-2022 12:00-0400 Heart rate80 /[employer] Work Phone: [address] [place], [place] 2592009-25-2022 12:00-0400 Respiratory rate18 /minSS[employer] Work Phone: 1419)[address] [place], [place] 2592009-25-2022 12:00-0400 SaO2% (BldA) [Mass fraction]95 %Services [employer] Work Phone: [address] [place], [place] 2592009-25-2022 12:00-0400 Systolic blood papwrcow523 mm[Hg]Services [employer] Work Phone: [address] [place], [place] 2592009-25-2022 05:50-0400 Body bimads83.5 kgServic [employer] Work Phone: [address] [place], [place] 2592009-24-2022 11:27-0400 Body ucsuwc345.48 cmServices [employer] Work Phone: 1(744)[address] [place], [place] 2592009-23-2022 16:34-0400 Diastolic blood ghluhlen75 mm[Hg]Services [employer] Work Phone: [address] [place], [place] 2592009-23-2022 16:34-0400 Heart rate68 /[employer] Work Phone: 1419)80376 [address]09-23-2022 16:34-0400 Respiratory rate20 /[employer]SS[employer] Work Phone: [address] [place] 2592009-23-2022 16:34-0400 SaO2% (BldA) [Mass fraction]96 %Services [employer] Work Phone: 1(021)55476 [address]09-23-2022 16:34-0400 Systolic blood ywfazosf441 mm[Hg]Services [employer] Work Phone: 1(575)59276 [address]09-23-2022 11:58-0400 Body .48 [employer] Work Phone: 1(466)61876 [address]09-23-2022 11:58-0400 Body ruzddckexwi45.9 [degF]Services [employer] Work Phone: 1(216)49176 [address]09-23-2022 11:58-0400 Body irmhkm54.37 kgSerHuayi Work Phone: 1(805)14576 [address]09-23-2022 01:00-0400 Body fhfywxztjer17.9 [degF]Services [employer] Work Phone: 1(112)90476 [address]09-23-2022 01:00-0400 Diastolic blood oaozrthk15 mm[Hg]Services [employer] Work Phone: 1(164)72776 [address]09-23-2022 01:00-0400 Heart rate53 /[employer] Work Phone: 1(541)94176 [address]09-23-2022 01:00-0400 Respiratory rate16 /[employer] Work Phone: 1(751)22276 [address]09-23-2022 01:00-0400 SaO2% (BldA) [Mass fraction]97 %Services [employer] Phone: 1(675)40876 [address]09-23-2022 01:00-0400 Systolic blood mm[Hg]Services [employer] Work Phone: 1(638)72776 [address]09-22-2022 18:57-0400 Body oeeeup507.48 cmSSub[employer] Work Phone: 1(188)12176 [address]09-22-2022 18:57-0400 Body oawxcr28.37 kgSerHuayi Work Phone: 1(503)83676 [address]09-22-2022 14:00-0400 Diastolic blood yszfkibl70 mm[Hg]Services [employer] Work Phone: 1(635)72476 [address]09-22-2022 14:00-0400 Heart rate67 /[employer] Work Phone: 1(389)040-[address] [place], [place] 8983509-22-2022 14:00-0400 Respiratory rate20 /minSlima memorial hospitalWhoSay Work Phone: 1(228)60276 [address]09-22-2022 14:00-0400 SaO2% (BldA) [Mass fraction]99 %Services [employer] Work Phone: 1(171)80876 [address]09-22-2022 14:00-0400 Systolic blood ytzzmlxd485 mm[Hg]Services [employer] Work Phone: 1(163)54476 [address]09-22-2022 00:40-0400 Body twwhev342.48 cmSmary [facility] [employer] Work Phone: 1(940)89876 [address]09-22-2022 00:40-0400 Body hmuxhqgwuem93.8 [degF]Services [employer] Work Phone: 1(751)81376 [address]09-22-2022 00:40-0400 Body fgwxfa13.11 kgSerphoenixville hospital [employer] Work Phone: 1(118)01376 [address]09-21-2022 15:28-0400 Body fwymrwjmbwg10.8 [degF]Services [employer] Work Phone: 1(336)30076 [address]09-21-2022 15:28-0400 Diastolic blood mm[Hg]Services [employer] Work Phone: 1(955)10976 [address]09-21-2022 15:28-0400 Heart rate54 /[facility] [employer] Work Phone: 1(891)59[address]09-21-2022 15:28-0400 Respiratory rate20 /[facility] [employer] Work Phone: 1(264)21676 [address]09-21-2022 15:28-0400 SaO2% (BldA) [Mass fraction]100 %Services [employer] Work Phone: 1(083)87476 [address]09-21-2022 15:28-0400 Systolic blood vifhanzh182 mm[Hg]Services [employer] Work Phone: 1(419)[address] [place] 2592009-21-2022 12:26-0400 Body .48 [facility] Work Phone: 1(544)[address] [place], [place] 2592009-21-2022 12:26-0400 Body xklqul24.11 kgSerphoenixville hospital [employer] Phone: 1(361)[address] [place], [place] 2592007-13-2022 10:25-0400 Diastolic blood sneydcgk28 mm[Hg]Services [employer] Work Phone: 1(735)[address] [place], [place] 2592007-13-2022 10:25-0400 Heart rate83 /miLibrisjack [facility] [employer] Phone: 1(848)[address] [place], [place] 2592007-13-2022 10:25-0400 Respiratory rate20 /miLibrisjack [facility] [employer] Phone: 1(100)[address] [place], [place] 2592007-13-2022 10:25-0400 SaO2% (BldA) [Mass fraction]98 %Services [employer] Phone: 1(666)[address] [place], [place] 2592007-13-2022 10:25-0400 Systolic blood czcicxtm02 mm[Hg]Services [employer] Phone: 1(685)[address] [place], [place] 2592007-13-2022 08:46-0400 Body .48 [facility] PennsylvaniaSocialMaticajack [facility] [employer] Phone: 1(944)[address] [place], [place] 2592007-13-2022 08:46-0400 Body mass index (BMI) [Percentile] Per age and sex96.2 %Services [employer] Phone: 1(255)89076 [address]07-13-2022 08:46-0400 Body mass index (BMI) [Ratio]32 kg/v6Negcgqzc [employer] Phone: 1(002)[address] [place] 2592007-13-2022 08:46-0400 Body .4 [degF]Services [employer] Phone: 1(109)[address] [place], [place] 2592007-13-2022 08:46-0400 Body .37 kgSerphoenixville hospital [employer] Work Phone: 1(959)[address] [place], [place] 2592006-19-2022 13:52-0400 Diastolic blood nuuleeap93 mm[Hg]Services [employer] Work Phone: 1(961)336-[address] [place], [place] 8983506-19-2022 13:52-0400 Heart rate66 /minServWhoSay Work Phone: 1(088)11976 [address]06-19-2022 13:52-0400 Respiratory rate18 /minServices [employer] Work Phone: 1(992)76076 [address]06-19-2022 13:52-0400 SaO2% (BldA) [Mass fraction]100 %Services [employer] Work Phone: 1(190)92976 [address]06-19-2022 13:52-0400 Systolic blood efxpvslz778 mm[Hg]Services [employer] Phone: 1(485)[address]06-19-2022 11:54-0400 Body okesry274.48 cmSmary [facility] [employer] Work Phone: 1(151)55276 [address]06-19-2022 11:54-0400 Body mass index (BMI) [Percentile] Per age and sex95.5 %Services [employer] Phone: 1(785)52076 [address]06-19-2022 11:54-0400 Body mass index (BMI) [Ratio]31.1 kg/p5Iiwouljp [employer] Phone: 1(812)995-[address] [place], [place] 8983506-19-2022 11:54-0400 Body glnlrbwouim21.4 [degF]Services [employer] Work Phone: 1(165)044[address]06-19-2022 11:54-0400 Body uokrwq38.11 kgSerphoenixville hospital [employer] Phone: 1(927)42276 [address]06-18-2022 15:30-0400 Diastolic blood xkqavjfs28 mm[Hg]Services [employer] Phone: 1(044)91776 [address]06-18-2022 15:30-0400 Heart rate52 /minServWhoSay Work Phone: 1(593)807-[address] [place], [place] 8983506-18-2022 15:30-0400 Respiratory rate14 /minServices [employer] Work Phone: 1(938)013-[address] [place], [place] 8983506-18-2022 15:30-0400 SaO2% (BldA) [Mass fraction]99 %Services [employer] Work Phone: [phone]06-18-2022 15:30-0400 Systolic blood dofhpjyg331 mm[Hg]Services [employer] Work Phone: [phone]06-18-2022 12:28-0400 Body .[facility] Work Phone: [phone] [address]06-18-2022 12:28-0400 Body mass index (BMI) [Percentile] Per age and sex95.5 %Services [employer] Work Phone: [phone]06-18-2022 12:28-0400 Body mass index (BMI) [Ratio]31 kg/w3Eivflmna [employer] Work Phone: [phone] [place], [place] [id number] 12:28-0400 Body glisuvypjtw67.1 [degF]Services [facility] [employer] Work Phone: [phone]06-18-2022 12:28-0400 Body cqethq83 [facility]amed Work Phone: [phone] [address]06-17-2022 22:56-0400 Body wlkpuavbpeb34.1 [degF]Services [facility] [employer] Work Phone: [phone] [address]06-17-2022 22:56-0400 Diastolic blood euxmltrb89 mm[Hg]Services [facility] [employer] Work Phone: [phone] [address]06-17-2022 22:56-0400 Heart rate18 /minSlima memorial hospitalWhoSay Work Phone: [phone] [address]06-17-2022 22:56-0400 Respiratory rate18 /minSlima memorial hospitalWhoSay Work Phone: [phone] [place], [place] 8983506-17-2022 22:56-0400 SaO2% (BldA) [Mass fraction]94 %Services [employer] Phone: [phone] [place], [place] 8983506-17-2022 22:56-0400 Systolic blood cofudoxu146 mm[Hg]Services [employer] Phone: [phone] [address]06-17-2022 02:18-0400 Body emuwxb476.48 cmSlima memorial hospitalices [employer] Work Phone: [phone] [place], [place] 8983506-17-2022 02:18-0400 Body mass index (BMI) [Percentile] Per age and sex95.5 %Services [employer] [facility] [employer] Phone: [phone] [place], [place] 8983506-17-2022 02:18-0400 Body mass index (BMI) [Ratio]31.1 kg/z7Cjomxmqd [employer] [employer] Phone: [phone] [address]06-17-2022 02:18-0400 Body kbeffpalgca08.9 [degF]Services [employer] Phone: [phone] [address]06-17-2022 02:18-0400 Body .11 kgSerphoenixville hospital [employer] Phone: [phone] [place], [place] 8983506-17-2022 02:18-0400 Diastolic blood rswmqfaf18 mm[Hg]Services [employer] Phone: [phone] [place], [place] 8983506-17-2022 02:18-0400 Heart rate54 /minSlima memorial hospitalWhoSay Work Phone: [phone] [place], [place] 8983506-17-2022 02:18-0400 Respiratory rate18 /minSlima memorial hospitalWhoSay Work Phone: [phone] [place], [place] 8983506-17-2022 02:18-0400 SaO2% (BldA) [Mass fraction]98 %Services [employer] Phone: [phone]-[facility] [place]9[facility]06-17-2022 02:18-0400 Systolic blood muadorlf617 mm[Hg]Services [employer] Phone: [phone] [place], [place] 8983506-16-2022 12:09-0400 Heart rate72 /[facility] [employer] Phone: [phone] [place], [place] 8983506-16-2022 12:09-0400 Respiratory rate18 /[facility] [employer] Phone: [phone] [place], [place] 2592006-16-2022 12:09-0400 SaO2% (BldA) [Mass fraction]98 %Services [facility] Phone: [phone] [address]06-16-2022 10:32-0400 Body lxgusf608.21 cmSGlenbeigh Hospital [facility] [employer] Phone: [phone] [address]06-16-2022 10:32-0400 Body mass index (BMI) [Percentile] Per age and sex95.9 %Services [facility] [facility] Phone: [phone] [address]06-16-2022 10:32-0400 Body mass index (BMI) [Ratio]31.6 kg/r2Agrxtrgk [employer] Phone: [phone] [address]06-16-2022 10:32-0400 Body rltlhrhvkah47.1 [degF]Services [facility] [employer] Phone: [phone] [address]06-16-2022 10:32-0400 Body qxymwu35.11 kgSerSouthampton Memorial Hospital [employer] Phone: [phone] [address]06-16-2022 10:32-0400 Diastolic blood xmhrwiai02 mm[Hg]Services [facility] [facility] Phone: [phone]06-16-2022 10:32-0400 Systolic blood gqavebea053 mm[Hg]Services [facility] [employer] Phone: [phone] [place] [address] Encounters Encounter DateEncounter TypeCare ProviderFacilityStart: 08-28-2025 End: 37-45-2410Mwjqpeq encounter procedureKelsey Espino APRN [employer]-Lab Main [place] Work Phone: Start: 08-28-2025 End: 03-51-3739pnhmsyuaulYADQABNGN NO [facility] Work Phone: Start: 08-22-2025 End: 02-31-3593Zazfdfvei department patient visitFederico Randolph Facility:FTMCStart: 05-06-2025 End: 83-68-9874mvblnuzeqqJgfam T [facility] Work Phone: Start: 05-06-2025 End: 68-99-4034Npkumeez Kimber Dahl MD Work Phone: [facility]-LAB [facility]ospStart: 05-04-2025 End: 32-66-6919xpaybihjalQbcruii M [facility] Work Phone: Start: 05-04-2025 End: 19-59-3460Mfrvyolu Kimber Dahl MD Work Phone: [facility]-LAB Path Spec [facility]ospStart: 01-23-2025 End: 25-34-2686jzssxmafdxHrqxcwwi Family [facility] Work Phone: [facility] Work Phone: Start: 01-23-2025 End: 16-35-0817Jlpcnnnb ReferredSerSouthampton Memorial Hospital Work Phone: [facility]-LAB [facility] Spec [facility] HospStart: 01-16-2025 End: 06-04-3957Fsrbqjwfl department patient visitAstrit H [facility] Start: 10-28-2024 End: 46-50-4414Rcqokibag department patient visitServices [facility] Work Phone: [facility]-Emergency Room Work Phone: Start: 30-52-6700Vey-patient / Non-visitServices [facility] Work Phone: [facility] Work Phone: Start: 08-03-2024 End: 72-21-2496Obgpzobtf department patient visitServices Family [facility] Work Phone: [facility]-Emergency Room Work Phone: Start: 08-01-2024 End: 92-98-3950Zlvlovcpf department patient visitJEARAMIS MENDESSONFacility:FT Start: 07-30-2024 End: 21-30-6198Sqlybapmc department patient visitTim ThomasFacility:FTMCStart: 03-18-2024 End: 41-99-5432Jdnnzuwin department patient visitServices Family [facility] Work Phone: [facility]-Emergency Room Work Phone: Start: 03-15-2024 End: 73-48-5683Uydiogtto department patient visitAstrit Raf [facility] Start: 03-13-2024 End: 16-49-2225Dstdtbmjr department patient visitJomarylu Ernandeze [facility] Start: 07-31-2023 End: 46-89-8657Uxfngciwy department patient visitServices Family [facility] Work Phone: [facility]-Emergency Room Work Phone: Start: 07-14-2023 End: 29-07-1234qtdrvsxgciStkwnvug Family [facility] Work Phone: [facility] Work Phone: Start: 07-14-2023 End: 56-71-0908Cpgkytt encounter procedureServices Family [facility] Work Phone: [facility] Start: 06-16-2023 End: 93-78-1191hdnqvoiorsTfjnodmr Family [facility] Work Phone: [phone] [place] [address] Ctr Work Phone: Start: 06-16-2023 End: 01-65-5426Xzcetwp encounter procedureServices [employer] Work Phone: [facility] Start: 02-34-5287Dgnktu follow up visit related to original pxThomas OlexaFPG [facility] OrthopedicsStart: 06-02-2023 End: 30-25-2854ytigooabbbYfboygqg [facility] [employer] Work Phone: [employer] Other Start: 06-02-2023 End: 48-65-6505Jzgtmcz encounter procedureServWhoSay Work Phone: [facility] Start: 05-25-2023 End: 46-22-8247Zhxsibihr to same day surgery centerServWhoSay Work Phone: [facility]-Surgery Center [place]: 05-25-2023 End: 49-85-3429achlryxsmnUtbsnvpr [employer] Work Phone: [facility] Work Phone: Start: 05-24-2023 End: 20-96-9584xsgdtmcgmkWysywp Olexa Other [employer] Other Start: 66-20-5130Dsrzkahpb encounterThomas OlexaFPG [facility] OrthopedicsStart: 05-23-2023 End: 41-28-2284wuvvurdsbkUmreyy Olexa Other [employer] Other Start: 52-81-9385Oenmouqbe for other preprocedural examinationThomas OlexaFPG [facility] OrthopedicsStart: 10-49-1427Qwtdnt outpatient new 45 minutesThomas OlexaFPG [facility] OrthopedicsStart: 03-15-2023 End: 76-05-0192Npvqvkuv ReferredSerphoenixville hospital [facility] Work Phone: [facility]-LA [facility] ServicesStart: 01-26-2023 End: 03-98-2890psokdoeqxmKF DOCTOR MISCFacility:L3Ftzyh: 01-06-2023 End: 25-54-4262Awuecnfniw and management of inpatientSCounts include 234 beds at the [facility] Work Phone: [facility] Work Phone: Start: 94-55-8243ehefiyfjcrd encounterServPending sale to [facility] Work Phone: [facility] Work Phone: Start: 01-06-2023 End: 93-08-4613RguykgxnPsychiatric hospital Work Phone: [facility] Work Phone: Start: 01-02-2023 End: 43-41-9870QlkowpvqPsychiatric hospital Work Phone: [facility]-Emergency Room Work Phone: Start: 01-01-2023 End: 15-44-6257btutngurwsZKGWDS DIAB .Facility:J3Fiwht: 12-31-2022 End: 09-97-2803Omolowfwf department patient visitServPending sale to [facility] Work Phone: [facility] Work Phone: Start: 12-31-2022 End: 88-29-0595VjigbnxiPsychiatric hospital Work Phone: [facility]-Emergency Room Work Phone: Start: 11-09-2022 End: 25-47-9443Qblqnchhx department patient visitServPending sale to [facility] Work Phone: [facility] Work Phone: Start: 11-09-2022 End: 07-75-9724JlwgfjwxPending sale to [facility] Work Phone: [facility]-Emergency RoomStart: 11-07-2022 End: 22-85-4013Tgqkmooty department patient visitServices [facility] Senior Work Phone: [facility] Work Phone: Start: 11-07-2022 End: 01-17-4175Svmjeacn [facility] Senior Work Phone: [facility]-Emergency RoomStart: 11-02-2022 End: 31-05-7847Ofbqvfkjj department patient visitServices [facility] Senior Work Phone: [facility] Work Phone: Start: 11-02-2022 End: 67-26-2665Efqynhkg [facility] Senior Work Phone: [facility]-Emergency RoomStart: 10-31-2022 End: 38-38-1467Odjssnovi department patient visitServices [facility] Senior Work Phone: [facility] Work Phone: Start: 10-31-2022 End: 21-96-8836Xslyihrg [facility] Senior Work Phone: [facility]-Emergency RoomStart: 10-29-2022 End: 37-76-8612Oeogaexwp department patient visitServices [facility] [employer] Work Phone: [facility]-Emergency RoomStart: 10-29-2022 End: 92-52-3760Kjpxdmlm [facility] Senior Work Phone: [facility]-Emergency RoomStart: 08-27-2022 End: 05-15-9021Ohsmcbdl ReferredSerSouthampton Memorial Hospital Senior Work Phone: [facility] ServicesStart: 08-27-2022 End: 32-58-6749Utcmeghl [facility] [employer] Work Phone: [facility] ServicesStart: 08-20-2022 End: 91-79-5257Rjktosgphk and management of inpatientServjack [facility] [employer] Phone: [facility]-3 [place] [facility] SurgStart: 08-20-2022 End: 48-14-5959Mcbndsdd [facility] Senior Work Phone: [facility] [place] [facility] SurgStart: 08-19-2022 End: 57-49-3915Wqseezqfk department patient visitServFormerly [facility] Work Phone: [facility]-Emergency RoomStart: 08-19-2022 End: 95-34-4827Jratrqjh [facility] Senior Work Phone: [facility]-Emergency RoomStart: 08-19-2022 End: 84-78-9951Cigmcnyiy department patient visitServFormerly [facility] [employer] Phone: [facility]-Emergency RoomStart: 08-19-2022 End: 96-73-0936Ctztjuha [facility] Senior Work Phone: [facility]-Emergency RoomStart: 08-18-2022 End: 13-93-5985Onqqzcudu department patient visitServFormerly [facility] [employer] Phone: [facility]-Emergency RoomStart: 08-18-2022 End: 08-81-6211Tqmpirhi [facility] [employer] Work Phone: [facility]-Emergency RoomStart: 06-25-2022 End: 33-41-1245Chnyqazf ReferredSerPal[facility] NonW[facility]Te[facility] Medical Phone: [facility]-LA Family Health ServicesStart: 06-09-2022 End: 52-36-9958Kvlyrnosg to same day surgery centerServjack [facility] [employer] Phone: [facility]-Digestive HealthStart: 06-07-2022 End: 39-18-5026Pqsetet encounter procedureServjack [facility] [employer] Phone: [facility] Yxn-Icp-Meracvmr Testing Start: 05-26-2022 End: 92-25-9319Pdhiexco ReferredServic Family [facility] Work Phone: [facility] ServicesStart: 35-79-9273cuonjthdjaMgnhgj Jenkins RNNURSE ON CALLComment on above:Abdominal PainStart: 05-16-2022 End: 93-13-5707Wquvalcrd department patient visitServices Family [facility] Work Phone: [phone] [place] [address] Ctr-Emergency RoomStart: 05-15-2022 End: 44-53-3296Mxjdawbvi department patient visitServices Family [facility] Work Phone: [phone] [place] [address] Ctr-Emergency RoomStart: 05-14-2022 End: 19-24-9151Kaojbabul department patient visitServices Family [facility] Work Phone: [phone] [place] [address] Ctr-Emergency RoomStart: 05-14-2022 End: 31-37-9514Otoloudgh department patient visitServices [facility] Work Phone: [facility]-Emergency RoomStart: 05-13-2022 End: 34-52-3907Ubmnzwqqf department patient visitServices Family [facility] Work Phone: [phone] [place] [address] Ctr-Emergency RoomStart: 36-44-0541Qagrnomazv and management of inpatientBridget Magy Unger Facility:RBCStart: 58-29-7153Sunwhmj encounterJUDY B SPLIRAISFacility:9193Start: 76-62-4015Wryhavx encounterMere Solorio MaxwellFacility:9193Start: 04-14-2018 Patient encounterJUDY B SPLAWSKIFacility:9193Start: 48-01-1989Winlewi encounter Mere PuenteswellFacility:9193Start: 43-79-0783Tnrzzxj encounterJUDY B SPLIRAIS Facility:9193Start: 79-63-8320Ndzqnts encounterJUDY B SPLAWSKIFacility:9193 Start: 59-33-5512Fozmtzv encounterJUDY B SPLAWSKIFacility:9193Start: 09-28-2017 Patient encounterKatmilo Solorio MaxwellFacility:9305Start: 31-32-4130Bgqstam encounterDALI Marcus KEYONNAFacility:[facility] CtrStart: 08-09-2017 End: 96-93-3063Hqhpjgziyy and management of inpatientAIMEE WILKERSONHOLDENVILLE GENER[facility] HOLDENVILLELUIS EDUARDO Facility:RBC Procedures DateProcedureProcedure DetailPerforming ClinicianStart: 80-73-2131Bwujs culture Jasmeet Dahl MD Work Phone: Start: 05-94-8563Pucst [facility] Work Phone: Start: 29-72-9058V-ray of right kneeServices [employer] Work Phone: Start: 16-71-9554D-ray of right kneeSmary imogene [facility] [employer] Work Phone: Start: 64-91-7596M-ray of right kneeSlima memorial hospitalices [employer] Work Phone: Start: 92-16-4405Wigvnhqacdk of kneeSlima memorial hospitalWhoSay Work Phone: Start: 70-42-0139Ezpvxbktnjd Panel (PCR)Services [employer] Work Phone: Start: 90-47-0444Hkmjmcjb tomography of abdomen and pelvis with contrastSlima memorial hospitalSpockly Work Phone: Start: 20-37-2034Rspgq chest X-raySlima memorial hospitalEQ works Phone: Start: 17-95-9463Ezdbcv X-raySlima memorial hospitalSpockly Work Phone: Start: 80-44-1634Aubtw cultureSlima memorial hospitalSpockly Work Phone: Start: 00-38-7933Wkpcfsukq A and B virus antigen assay Services [place] Work Phone: Start: 90-12-6639Gvbrc cultureSLevant Power Work Phone: Start: 83-92-6479Aiker [facility] HealthSp[facility] Work Phone: Start: 80-26-6608Sxlgx cultureServSpockly Work Phone: Start: 16-00-1359Qktazmrk tomography of abdomen and pelvis with contrastServices [employer] Work Phone: Start: 96-03-1808NyrdxrgefgnlvjbydfwaopyulxFcsjljlw [employer] Phone: Start: 41-13-7877Rvdpdbiq tomography of abdomen and pelvis with contrastServices [employer] Work Phone: Start: 58-84-5912Vsrjrbnejxha of Nutritional Substance into Upper GI, Via Natural or Artificial OpeningKathleen MaxwellStart: 39-78-3805Dmjclnvpxk of Larynx, Via Natural or Artificial Opening Endoscopic Mere MaxwellStart: 05-46-4694Sbfznmf Bleeding in Respiratory Tract, Via Natural or Artificial OpeningKathleen MaxwellStart: 72-98-0255Qenslxtc of Duodenum, Via Natural or Artificial Opening Endoscopic, DiagnosticKateen MaxwellStart: 58-36-5997Dmovyprc of Lower Esophagus, Via Natural or Artificial Opening Endoscopic, DiagnosticKathleen MaxwellStart: 86-40-3625Twyipppw of Stomach, Pylorus, Via Natural or Artificial Opening Endoscopic, Diagnostic [facility] RosaSARS Antigen (LFIA)Services [employer] Work Phone: SARS Antigen (LFIA)Services [employer] Work Phone: SARS Antigen (LFIA)Services [employer] Work Phone: Urine [facility] Work Phone: Urine [facility] Work Phone: Urine [facility] Work Phone: Urine [facility] Work Phone: Serphoenixville hospital [place] Work Phone: Serlakewood regional medical centeres [place] Work Phone: Serphoenixville hospital [place] Work Phone: Plan of Treatment DateCare ActivityDetailAutrStart: 64-40-0448Gmqoy [facility] Centertart: 97-09-6039Bnvrdphb identified in Urine by CultureUrine CultureGalion Hospitaltart: 46-36-9491Lqbpjuqt identified in Urine by CultureUrine CultureGalion Hospitaltart: 05-06-2025 Urine cultureGalion Hospitaltart: 28-67-9108Hfqbhoev identified in Urine by CultureUrine [facility] Start: 72-45-8911Xdgpx [facility] Centertart: 01-23-2025 Bacteria identified in Urine by CultureUrine [facility] Hospitaltart: 02-40-2942Gsmyd [facility] Centertart: 11-00-0981IkrmwvdiiGalion Hospitaltart: 03-96-0801DcvxmvievGalion Hospitaltart: 27-03-8987KjifluruxGalion Hospitaltart: 76-83-0921PqvecfcxmGalion Hospitaltart: 85-71-1907Bpaqu chemistry [facility]tart: 21-50-3509LzoxdhcwvGalion Hospitaltart: 49-74-3560Oqinw chemistryGalion Hospitaltart: 01-07-2023 End: 82-48-0736ToqvflujpGalion Hospitaltart: 91-45-8251Dvvwwtu referral to dietitianGalion Hospitaltart: 89-79-5131Sdhqmgvw admissionGalion Hospitaltart: 14-60-9355GgibphmheGalion Hospitaltart: 25-86-9074Gfkicbqw tomography of abdomen and pelvis with contrastGalion Hospitaltart: 63-17-8167DO Abdomen and Pelvis W contrast [facility]ertart: 01-06-2023 End: 41-50-2027QdfdeqhekMiddletown Hospital CenterStart: 09-43-4675Wrkll culture [facility] Hospitaltart: 12-31-2022 End: 00-69-0935SzmeaxaltGalion Hospitaltart: 42-35-2538GandtmmxbMiddletown Hospital CenterStart: 16-64-7767HajsiwenfGalion Hospitaltart: 92-02-5817QudnrqqyoGalion Hospitaltart: 01-92-3729YajxbuprhRegency Hospital [facility] Work Phone: Start: 24-08-9389Qiqteyud admissionGalion Hospitaltart: 90-81-2880UmeasskffMiddletown Hospital Ctr Work Phone: Start: 39-64-4025EegeyadziMiddletown Hospital Ctr Work Phone: Start: 07-28-4585Xqnznkmp tomography of abdomen and pelvis with contrastCT abdomen pelvis w [facility] Start: 37-30-8157HC Abdomen and Pelvis W contrast [place] [facility] Work Phone: Start: 30-66-3637PsdspkybeMiddletown Hospital Ctr Work Phone: Start: 36-87-0712Sioxsqfzm vaccinationINFLUENZA (Season Ended)[facility] Hospitaltart: 68-68-3035FyemqdmwzMiddletown Hospital Ctr Work Phone: Start: 98-03-6892RMGBBPZIB SCREENING (18-24)CHLAMYDIA SCREENING (18-24)[facility] Hospitaltart: 56-54-2777TR (GONORRHEA) SCREENING (18-24)GC (GONORRHEA) SCREENING (18-24)[facility]tart: 2022 HEPATITIS C SCREENINGHEPATITIS C SCREENINGMarion Hospitaltart: 08-66-8512CGM SCREENINGHIV SCREENINGMarion Hospitaltart: 66-55-7784BMBMGWKQYVZAD CONJUGATE (1 - 2-dose series)MENINGOCOCCAL CONJUGATE (1 - 2-dose series)[facility] Start: 27-17-3855VEOR TO ADULT TRANSITION ANNUAL ASSESSMENTPEDS TO ADULT TRANSITION ANNUAL ASSESSMENTMarion Hospitaltart: 06-20-1321Qltug depression screening assessmentDEPRESSION SCREENINGCleNorwalk Memorial Hospitaltart: 36-16-4727UWWO TO ADULT TRANSITION INITIAL DISCUSSIONPEDS TO ADULT TRANSITION INITIAL DISCUSSION [facility]: 80-64-4834TXW VACCINE (1 - 2-dose series)HPV VACCINE (1 - 2-dose series)[facility] Hospital[facility]: 80-87-2670JSQYKFNQXVKJI B: Consider based on risk (1 of 2 - Risk Bexsero 2-dose series)MENINGOCOCCAL B: Consider based on risk (1 of 2 - Risk Bexsero 2-dose series)[facility]: 11-44-5714Pnhjp microalbumin profileDTAP,TDAP,TD (1 - Tdap)[facility] Hospitaltart: 2009 COVID-19 VACCINE (#1)[facility] CampusAmphetamines [Presence] in UrineRegency Hospital [facility]edo Work Phone: Bacteria identified in Blood by CultureMckitrick HospitalBacteria identified in Urine by CultureMckitrick HospitalBacteria identified in Urine by CultureMckitrick HospitalBarbiturates [Presence] in UrineRegency Hospital [facility] Work Phone: Basophils [#/volume] in Blood by Automated count [facility]itrick HospitalBasophils/100 leukocytes in Blood by Automated countMckitrick HospitalBenzodiazepines [Presence] in Urine [facility] Work Phone: Bilirubin measurement, urineRegency Hospital [facility] Work Phone: Cannabinoids [Presence] in Urine by Screen method [facility] Work Phone: Chlamydia trachomatis DNA [Presence] in Unspecified specimen by JANAK with probe detectionMckitrick HospitalChlamydia trachomatis rRNA [Presence] in Cervix by JANAK with probe detectionMckitrick HospitalChoriogonadotropin ( test) [Presence] in Urine [facility] Work Phone: Cocaine [Presence] in UrineRegency Hospital [facility] Work Phone: Color of UrineRegency Hospital [facility] Work Phone: Detection of hemoglobinRegency Hospital [facility] Work Phone: Eosinophils/100 leukocytes in Blood by Automated count M[facility]itrick HospitalErythrocyte distribution width [Ratio] by Automated countMckitrick HospitalErythrocytes [#/volume] in Blood Mckitrick HospitalGlucose [Mass/volume] in Urine by Test strip [facility] Work Phone: Hematocrit [Volume Fraction] of [facility] CampusHemoglobin [Mass/volume] in [facility] CampusHomogenous nuclear Ab pattern [Titer] in [facility] Work Phone: Hucecil papilloma virus 16+18+31+33+35+39+45+51+52+56+58+59+66+68 DNA [Presence] in Cervix by Probe with signal amplificationMckitrick HospitalHuman papilloma virus 16+18+31+33+35+39+45+51+52+56+58+59+68 DNA [Presence] in Cervix by Probe with signal amplificationMckitrick HospitalLeukocytes [#/volume] corrected for nucleated erythrocytes in Blood by Automated counMckitrick HospitalLeukocytes [#/volume] in [facility] CampusLymphocytes [#/volume] in Blood by Automated TriHealthLymphocytes/100 leukocytes in Blood by Automated TriHealthMCH [Entitic mass] by Automated TriHealthMCHC [Mass/volume] by Automated TriHealthMCV [Entitic volume] by Automated [facility] Measurement of ketones in urine using dipstickMiddletown Hospital Ctr Work Phone: Monocytes [#/volume] in Blood by Automated count Mckitrick HospitalMonocytes/100 leukocytes in Blood by Automated countMckitrick HospitalNeisseria gonorrhoeae DNA [Presence] in Unspecified specimen by JANAK with probe detectionMckitrick HospitalNeisseria gonorrhoeae rRNA [Presence] in Cervix by JANAK with probe detectionMckitrick HospitalNeutrophils [#/volume] in Blood by Automated countMckitrick HospitalNeutrophils/100 leukocytes in Blood by Automated TriHealthNuclear Ab [Titer] in [facility] Work Phone: Nucleated erythrocytes [Presence] in Blood by Automated TriHealthPatient [facility] Work Phone: Patient referralMiddletown Hospital Ctr Work Phone: Phencyclidine [Presence] in UrineMiddletown Hospital Ctr Work Phone: Platelet mean volume [Entitic volume] in Blood by Automated countMckitrick HospitalPlatelets [#/volume] in Blood Mckitrick HospitalProtein measurement, urineMiddletown Hospital Ctr Work Phone: [phone]-[id number] (COVID-19) N gene [Presence] in Respiratory specimen by JANAK with probe detectionMiddletown Hospital Ctr Work Phone: Trichomonas vaginalis DNA [Presence] in Unspecified specimen by JANAK with probe detectionMckitrick HospitalUrinalysis, specific gravity measurementMiddletown Hospital Ctr Work Phone: Urine cultureUrine CultureMckitrick HospitalUrine cultureMckitrick HospitalUrine dipstick for nitrite [facility] Work Phone: Urine dipstick for specific gravityMiddletown Hospital [facility]tr Work Phone: Urine pH testMiddletown Hospital Ctr Work Phone: Urobilinogen concentration, test strip measurement [facility] Work Phone: [facility] Immunizations Immunization DateImmunizationNotesCare [id number] toxoid, reduced diphtheria toxoid, and acellular pertussis vaccine, adsorbedServices [facility] Work Phone: [facility]02-10-2017Human Papillomavirus 9-valent vaccineThomas Olexa Other [employer] Other [id number], unspecified formulationServices [facility] Work Phone: [facility]10-10-2016influenza, injectable, quadrivalent, preservative freeThomas Olexa Other [facility]10-10-2016Human Papillomavirus 9-valent vaccineThomas Olexa Other nokw[employer] Other [id number], unspecified formulationServices [employer] Work Phone: [facility]08-04-2016human papilloma virus vaccine, quadrivalentThomas Olexa Other [facility]08-04-2016 meningococcal polysaccharide (groups A, C, Y and W-135) diphtheria toxoid conjugate vaccine (MCV4P)Colten Olexa Other [facility]08-04-2016tetanus toxoid, reduced diphtheria toxoid, and acellular pertussis vaccine, adsorbed Colten Olexa Other [facility]10-05-2015influenza, injectable, quadrivalent, preservative freeThomas Olexa Other [facility]09-22-2014influenza, injectable, quadrivalent, contains preservativeServices [employer] Work Phone: [facility]09-22-2014influenza, injectable, quadrivalent, preservative freeThomas Olexa Other noVonage [employer] Other [id number], seasonal, injectable, preservative freeThomas Olexa Other [facility] Payers DatePayer CategoryPayerPolicy ID2024Self-pay2019MedicaidCARESOURCE MEDICAID [facility] MEDICAID [id number] 2019-Present [phone] [address] [place] [address] [id number] .1.728255.3.57[id number] 2.16.840.1.340506.3.57[id number] 2.840.1.908986.3.57[id number] 2.840.1.836650.3.57[id number] 2.0.1.977455.3.57[id number] 2.0.1.352960.3.579.2.[id number] 2.0.1.138294.3.57[id number] 2.0.1.029993.3.57[id number] 2.0.1.671674.3.579.[id number] 2..1.567841.3.57[id number] 2.0.1.832314.3.57[id number] 2..1.720857.3.579.2.19473-15-9695Efepkeg2196257 2.840.1.958909.3.579.2.593 [id number] [id number] [id number] 25at546s-5598-6224-5z[id number] 247v681o-b043-5ww9-[id number] 80pf43pf-50uo-4d76-[id number] 2.16.840.1.4[id number] 2..0.1.813051.3.579.2.531 [id number] 2..0.1.49515[id number] 2..0.1.827073.3.579.2.612Ulupsgi00161912 2.0.1.615810.3.579.2.531 Social History DateTypeDetailFacilityStart: 10-09-2021 End: 62-69-0196Ehirbrg smoking status NHISNever smoked tobaccoSumma Health [facility] Start: 60-26-0251Uaargns use and exposureSmokeless tobacco non-userMarion Hospitaltart: 63-13-8036Owiqaxj intakeLifetime non-drinker (finding)[facility]: 35-41-9958Ziwnjqd SDOH Alcohol Ycoivtrqb8Iduftqqvj ClinicStart: 39-10-1062Qcu Assigned At BirthNot on fileMarion Hospitaltart: 06-09-2022 End: 72-49-0891Rixojuc smoking status NHISSmoker (finding)[facility]: 54-30-7652Wht Assigned At BirthFemalMercer County Community Hospitaltart: 08-18-2022 End: 59-08-1430Fdtwhsg smoking status NHISCurrent some day smokerGalion Hospitaltart: 89-85-8199Isllgye smoking status NHISEx-smoker (finding)[facility] Hospitalex Assigned At [facility] HospitalTobacco smoking statusNeSamaritan North Health Centertart: 01-24-2025 End: 68-96-5062VhyPmchqa (finding)Mckitrick HospitalNEGATED: Highlighted rowMckitrick Hospital Medical Equipment Procedure CodeEquipment CodeEquipment Original TextEquipment IdentifierDates Arthroscopy, kneeTendon/ligament bone anchor, non-bioabsorbable ()[id number] FDAStart: 01-17-8744Uhdnathvbyd, knee Soft-tissue/mesh anchor, non-bioabsorbable()[id number] FDAStart: 07-54-6119Xlfqzguthqq, kneeTendon/ligament bone anchor, bioabsorbable ()[id number] FDAStart: 05-25-2023 Goals DatePatient GoalDesired Activity/State Functional Status PhhuPamuysclrxBjkglcUymoylms99-19-2608Voaetoqmom StatusN/[facility]09-02-2024Functional StatusN/[facility]04-18-2024 Functional StatusN/[facility]04-16-2024Functional StatusN/A [facility]02-10-2023Functional statusPatient at Baseline [facility] Work Phone: [phone] 449-122902770865-52-4968Bdlnhmjqiz statusPatient at Baseline [facility] Work Phone: 1(301) [phone]Vlqkjlexmv statusPatient at Baseline [facility] Work Phone: Mental Status GohzPbmktetdkrHaxzatAzoiamsq24-11-3536Breesffeh functionPatient at Baseline [facility] Work Phone: 1([phone]) 892-786902-748601-40-3331Gtjdvzinz functionPatient at Baseline [facility] Work Phone: 1(441) [phone]czrdxj functionPatient at Baseline [facility] Work Phone: Clinical Notes 09-28-2015 to 08-22-2025 Note Date & KoqjDqieFrirqaes71-91-5081 NoteED Patient Education Note Gastroenterology Nausea and [...] added (diluted fruit juice). ??? Eat bland, kppp-ef-rtwzda foods in small amounts as you are able. These foods include bananas, applesauce, rice, lean meats, toast, and crackers. ??? Avoid fluids that contain a lot of sugar or caffeine, such as energy drinks, sports drinks, andsoda. ??? Avoid alcohol. ??? Avoid spicy or fatty foods. General instructions ??? Take rmpd-ikt-yetboor and prescription medicines only as told by your health care provider. ??? Drink enough fluid to keep your urine pale yellow. ??? Wash your hands often using soap and water for at least 20 seconds. If soap and water are not available, use hand technology integration specialist. ??? Make sure that everyone in your [...] and drinking to prevent dehydration. ??? Take dzfh-puh-txsytxe and prescription medicines only as told by [...] Reviewed: 05/21/2022 Elsevier Patient Education ? 2023 Medafor. Obstetrics and Gynecology Hyperemesis Gravidarum Hyperemesis gravidarum [...] It may be associated (more content not included)...[facility]02-19-2025 Hospital Discharge instructions Patient Education 01/16/2025 20:36:16 [...] limityour activities and whether you should start ioofl-zl-dvlxqj exercises for your injury. Ice Ice your [...] provider. Document Revised: 2021 Document Reviewed: 08/04/2018 [employer] Patient Education 2020 [employer]. 01/16/2025 20:36:16 Contusion Contusion A contusion is [...] are sitting or lyingdown. General instructions Take kxsl-cya-lsyovid and prescription medicines only as told by [...] provider. Document Revised: 05/02/2023 Document Reviewed: 05/02/2023 [employer] Patient Education 2023 [employer]afor. 01/16/2025 20:36:16 Fall Prevention in the Home, Adult, Awmn-jn-Uryh Fall Prevention in the Home, Adult Falls [...] Keep items that you use often in jtxr-rf-qjllz places. Lower the shelves around your home [...] of the way. Do not use floor [place] citizen or wax that makes floors slippery. What [...] Disease Control and Prevention, STEADI: cdc.gov National [place] on Aging: jacob.nih.gov National [place] on Aging: jacob.nih.gov Contact a doctor if: [...] provider. Document Revised: 07/18/2023 Document Reviewed: 07/18/2023 [employer] Patient Education 2023 Medafor. Follow Up Care 01/16/2025 17:51:58 With:MODESTA CHAND Address: [address] [place] [phone] Business (1) When:2025 20:14:58 Comments:Call Dr for diagnosis based follow up [facility] 02-19-2025 NoteED Patient Education Note Caregiving Fall [...] Keep items that you use often in tbdx-ch-twqer places. Lower the shelves around your home [...] the way. ??? Do not use floor [place] citizen or wax that makes floors slippery. What [...] Control and Prevention, [place]: cdc.gov ??? National [place] on Aging: jacob.nih.gov ??? National [place] on Aging: jacob.nih.gov Contact a doctor if: [...] symptoms will go away. (more content not included)...[facility]09-04-2024 NoteED Patient Education Note Gastroenterology Hypokalemia Hypokalemia [...] such as yogurt. General instructions ? Take zrpd-gsk-tnsuzbo and prescription medicines only as told by [...] provider. Document Revised: 07/29/2022 Document Reviewed: 07/29/2022 [employer] Patient Education ? 2023 Elsevier Inc. Nausea [...] that has water adde (more content not included)...[facility]09-03-2024 Hospital Discharge instructions Patient Education 07/30/2024 22:55:49 [...] water added (diluted fruit juice). Eat bland, ogtc-xw-ccbcyp foods in small amounts as you are able. These foods include bananas, applesauce, rice, lean meats, toast, and crackers. Avoid fluids that contain a lot of sugar or caffeine, such as energy drinks, sports drinks, and soda. Avoid alcohol. Avoid spicy or fatty foods. General instructions Take spyt-fcz-xtpijur and prescription medicines only as told by your health care provider. Drink enough fluid to keep your urine pale yellow. Wash your hands often using soap and water for at least 20 seconds. If soap and water are not available, use hand technology integration specialist. Make sure that everyone in your [...] eating and drinking to prevent dehydration. Take ahik-tdi-znkaxvh and prescription medicines only as told by [...] provider. Document Revised: 05/21/2022 Document Reviewed: 05/21/2022 [employer] Patient Education 2023 Medafor. Follow Up Care 07/30/2024 19:27:35 With:FAMILIA CHAND Address: [facility] [address] [address] Business (1) When:08/02/2024 [facility] 09-02-2024 NoteED Patient Education Note Gastroenterology Nausea [...] added (diluted fruit juice). ? Eat bland, xnnh-eo-vcrmym foods in small amounts as you are able. These foods include bananas, applesauce, rice, lean meats, toast, and crackers. ? Avoid fluids that contain a lot of sugar or caffeine, such as energy drinks, sports drinks, and soda. ? Avoid alcohol. ? Avoid spicy or fatty foods. General instructions ? Take tcpo-wxp-jgdszgj and prescription medicines only as told by your health care provider. ? Drink enough fluid to keep your urine pale yellow. ? Wash your hands often using soap and water for at least 20 seconds. If soap and water are not available, use hand technology integration specialist. ? Make sure that everyone in [...] and drinking to prevent dehydration. ? Take grtn-jhl-xnpiaqg and prescription medicines only as told by [...] provider. Document Revised: 05/21/2022 Document Reviewed: 05/21/2022 [employer] Patient Education ? 2023 Medafor.[facility] 07-30-2024 Evaluation + Plan noteExtracted from:Title:ED NoteAuthor:Dustin [...] PRN Nausea/Vomiting, # 16 tab(s), Refills(s) 0, Pharmacy:[facility]/pharmacy #[id number], 157, cm, 07/30/24 19:37:00 EDT, Height/Length Dosing, 96.1, kg, 07/30/24 19:37:00 EDT, Weight Dosing promethazine, 12.5 mg = 1 tab(s), Oral, q8hr, PRN as needed for nausea/vomiting, second line, # 10 tab(s), Refills(s) 0, Pharmacy: [facility]/pharmacy #[id number], 157, cm, 07/30/24 19:37:00 EDT, Height/Length Dosing, 96.1, kg, 07/30/24 19:37:00 EDT, Weight Dosing promethazine, 12.5 mg = 1 supp, Rectal, q8hr, PRN as needed for nausea/vomiting, 3rd line, # 6 EA, Refills(s) 0, Pharmacy: [facility]/pharmacy #[id number], 157, cm, 07/30/24 19:37:00 EDT, [...] Lipase Level Magnesium Level Saline Lock Insert [facility] 04-18-2024 Hospital Discharge instructions Patient Education 03/15/2024 [...] careprovider. Do not use recreational drugs. Take dkdn-fff-gcqykaf and prescription medicines only as told by [...] provider. Document Revised: 06/08/2022 Document Reviewed: 06/08/2022 [employer] Patient Education 2022 Medafor. 03/15/2024 13:49:41 Nausea and Vomiting, Adult Nausea [...] water added (diluted fruit juice). Eat bland, mqtm-nm-ffbqlo foods in small amounts as you are able. These foods include bananas, applesauce, rice, lean meats, toast, and crackers. Avoid fluids that contain a lot of sugar or caffeine, such as energy drinks, sports drinks, and soda. Avoid alcohol. Avoid spicy or fatty foods. General instructions Take krxz-uly-kzvotmm and prescription medicines only as told by your health care provider. Drink enough fluid to keep your urine pale yellow. Wash your hands often using soap and water for at least 20 seconds. If soap and water are not available, use hand technology integration specialist. Make sure that everyone in your [...] eating and drinking to prevent dehydration. Take dkhf-him-letemez and prescription medicines only as told by [...] provider. Document Revised: 05/21/2022 Document Reviewed: 05/21/2022 [employer] Patient Education 2022 Medafor. Follow Up Care 03/15/2024 10:34:05 With:Kirk Serrano Address:Unknown When:03/22/2024 13:33:04 Comments:Make sure to follow-up with Dr. Serrano at the surgery clinic in 1 week as instructed. Return to the emergency room if you develop chest pain, shortness of breath or any symptoms. [facility]04-18-2024 Evaluation + Plan noteExtracted from: Title:ED NoteAuthor:August [...] CT Chest w/ Contrast eGFR Magnesium Level [facility]04-17-2024 Hospital Discharge instructions Patient Education 03/13/2024 22:27:59 Nausea and Vomiting, Adult, Apay-xa-Myic Nausea and Vomiting, Adult Nausea is feeling [...] fruit juice). ?Low-calorie sports drinks. Eat bland, gksq-ts-ewdakq foods in small amounts as you are able, such as: ?Bananas. ?Applesauce. ?Rice. ?Low-fat (lean) meats. ?[place]. ?Crackers. Avoid drinking fluids that have a lot of sugar or caffeine in them. This includes energy drinks, sports drinks, and soda. Avoid alcohol. Avoid spicy or fatty foods. General instructions Take bzqv-trw-trpkzip and prescription medicines only as told by your doctor. Drink enough fluid to keep your pee (urine) pale yellow. Wash your hands often with soap and water for at least 20 seconds. If you cannot use soap and water, use hand technology integration specialist. Make sure that everyone in your [...] your doctor about eating and drinking. Take ymsu-iop-wajzxda and prescription medicines only as told by your doctor. Contact your doctor if your symptoms get worse or you have new symptoms. Keep all follow-up visits. This information is not intended to replace advice given to you by your health care provider. Make sure you discuss any questions you have with your health care provider. Document Revised: 05/21/2022 Document Reviewed: 05/21/2022 [employer] Patient Education 2022 [employer]afor. 03/13/2024 22:27:59 Muscle Strain, Ewzp-aj-Jlwo Muscle Strain A muscle strain, or pulled [...] is not too tight. General instructions Take devc-hji-kibsvyt and prescription medicines only as told by [...] provider. Document Revised: 02/01/2022 Document Reviewed: 02/01/2022 [employer] Patient Education 2022 Medafor. Follow Up Care 03/13/2024 17:33:30 With:MODESTA ARCHIBALD Address: [address] [place] [phone] Business (1) When:03/16/2024 Comments:You can use the medications as prescribed as needed for pain, nausea. Please follow-up with your primary care doctor for further evaluation and management. Please return to the ED if you develop chest pain, difficulty breathing or if any concerning signs or symptoms. [facility]04-16-2024 Evaluation + Plan noteExtracted from: Title:ED NoteAuthor:Brandi [...] pain, # 20 tab(s), Refills(s) 0, Pharmacy: [facility]/pharmacy #[id number], 160, cm, 03/13/24 17:38:00 EDT, Height/Length Dosing, 95.5, kg, 03/13/24 17:38:00 EDT, Weight Dosing orphenadrine, 60 mg = 2 mL, Injection, IV Push, Once, Stop date 03/13/24 20:27:00 EDT, STAT, Start date 03/13/24 20:27:00 EDT, 03/13/24 20:27:00 EDT promethazine, 25 mg = 1 supp, Rectal, q6hr, PRN Nausea/Vomiting, # 6 EA, Refills(s) 0, Pharmacy: [facility]/pharmacy #[id number], 160, cm, 03/13/24 17:38:00 EDT, [...] kg, 2.06, m2 XR Chest 2 Views [facility]07-06-2023 Evaluation note* Encounter Date Diagnosis Assessment Notes [...] May,Other specified postprocedural states (ICD-10 - Z98.890) [employer] Other 06-27-2023 Evaluation note* Encounter Date Diagnosis Assessment Notes Treatment Notes Treatment Clinical Notes Apr, Other specified postprocedural s tates (ICD-10 - Z98.890) [employer] Other 06-26-2023 Evaluation note* Encounter Date Diagnosis [...] pain for many months and potentially cause mcc pain and stiffness. We have discussed the [...] S82.111A) Apr,re-op exam (ICD-10 - Z01.818) [employer] Other 02-10-2023 History and physical note Author Eliana Bautista [facility] January 07, 2023 2:11amNote Date/TimeFebruary 2022 5:30pmJoshua Ville [id number] Hospitalist H&P Signed Patient: Pili Parikh MR#: [id number] : 2005 Acct:[id number] Age/Sex: 17 / F Adm Date: 3 Loc: Room: [address] [place] [address] Type: ADM INOo Attending Dr: Eliana Bautista MD Copies to: [facility] Anette FRANKY Stout MD~ HPI DATE [...] in the HPI or below [facility] Attestation Statement: The following information was validated [...] % (Auto) 19.9 % (.) 01/06/23 14:20 [place] % (Auto) 7.4 % (.) 01/06/23 14:20 Eos % (Auto) 2.3 % (.) 01/06/23 14:20 Baso % (Auto) 0.3 % (.) 01/06/23 14:20 Nucleat RBC Rel Count 0.1 /100 WBC (0-0.5) 01/06/23 14:20 Neut # (Auto) 12.4 x10E3/uL (1.2-7.7) H 01/06/23 14:20 Lymph # (Auto) 3.5 x10E3/uL (1.20-4.8) 01/06/23 14:20 [place] # (Auto) 1.3 x10E3/uL (0.1-1.00) H 01/06/23 [...] pH 6.5 (5.0-9.0) 01/06/23 16:10 Ur Specific [place] 1.027 (1.001-1.030) 01/06/23 16:10 Urine Protein 100 [...] signed by Eliana Bautista MD> 01/07/23 0211 [facility] Work Phone: 1(380) 433-946609-24-2022 Progress note Author Gregorio Carey [facility] August 21, 2022 5:01pmNote Date/TimeSept2021 5:01pmWades[place] [address] Hospitalist Progress Note Signed Patient: Pili Parikh MR#: [id number] : 2005 Acct:[id number] Age/Sex: 17 / F Adm Date: 2 Loc: Room: [address] [place] [address] Type: ADM IN Attending Dr: Gregorio Carey [...] alot of discomfort. She recalls that the spa coordinator told her that in warm water against [...] 1 Gm/10 Ml Udc PO 08/22/23 06:59 TID.AC.[facility] A&P - Hospitalist Assessment/Plan (1) Intractable [...] signed by Gregorio Carey DO> 08/21/22 1701 [facility] Work Phone: 1(657) 580-423609-23-2022 History and physical note Author Gregorio Carey [facility] August 20, 2022 8:17pmNote Date/TimeSeptember 2021 8:17pmW[place] [address] Hospitalist H&P Signed Patient: Pili Parikh MR#: [id number] : 2005 Acct:[id number] Age/Sex: 17 / F Adm Date: 2 Loc: Room: [address] [place] [address] Type: ADM IN Attending Dr: Gregorio Carey DO Copies to: [facility] Senior Gregorio Carey DO~ HPI DATE OF [...] % (Auto) 11.5 % (.) 08/20/22 16:21 [place] % (Auto) 3.7 % (.) 08/20/22 16:21 Eos % (Auto) 0.3 % (.) 08/20/22 16:21 Baso % (Auto) 0.4 % (.) 08/20/22 16:21 Neut # (Auto) 9.2 x10E3/uL (1.2-7.7) H 08/20/22 16:21 Lymph # (Auto) 1.3 x10E3/uL (1.20-4.8) 08/20/22 16:21 [place] # (Auto) 0.4 x10E3/uL (0.1-1.00) 08/20/22 16:21 [...] <Electronically signed by Gregorio Carey DO> 08/20/222016 [facility] Work Phone: 1(369) 611-903906-19-2022 Miscellaneous Notes* Telephone Encounter - Luana Mak [...] if she can find a way to [facility], she will go there. Reason for Disposition Chest pain [1] Chest pain lasts > 5 minutes AND [2] described as crushing, pressure-like, or heavy Protocols used: ABDOMINAL PAIN - [facility]-KEZSB-YR, CHEST MIQW-SDLVD-BY documented in this encounterSumma Health Barber[facility] Campus12-17-2021 NoteHNO ID: [id number] Author: Rolando Wooten MD Service: ? Author [...] completed when applicable. PROCEDURE NOTE: IANDD right ARMATURE WINDER REPAIR Risks, benefits, personnel and alternatives were explained. The patient wished to proceed. S/he was re-identified and a time out obtained. PROCEDURE drainage right ARMATURE WINDER REPAIR PREOPERATIVE DIAGNOSIS: right peritonsillar abscess POSTOPERATIVE DIAGNOSIS tonsillitis without pus in right peritonsillar area INDICATIONS: chronic right throat pain, worsening, concern for right ARMATURE WINDER REPAIR at outside facility on scan . Drainage [...] there were no complication. MD Rolando Cherry, [facility]11-12-2021 NoteHNO ID: [id number] Author: Rolando Wooten MD Service: ? Author Type: Physician Type: Progress Notes Filed: 11/13/2021 1:09 AM Note Text: [facility] Consult This consult was requested by [...] tonsillitis. 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 Medical Historyintermittent asthmaMedical Historylactose intoleranceMedical HistoryPOTS diag 09/2015Surgical Tevegkowdnfplcpxrmo2119Qrbxuexvapcicll History strepthroat, uri, dehydration, otitis klntw3346Pokccrnjhvamchy History ouwtgjwjhtg0276Dsytneyxzwamgrh [facility] Hospitalization History3 days vomitting blood01/2017Hospitalization History vomiting, abd pain, dehydration [facility]07/22-07/27/2017[facility] [employer] Other Evaluation noteNo assessment information available [facility] Work Phone: Evaluation note* Diagnosis Onset Date Resolution Status Nausea & vomiting acute [facility] Work Phone: Evaluation note* Diagnosis Onset Date Resolution Status Dehydration acuteHypokalemiaacuteIntractable nausea and vomitingacuteNausea & vomitingacute [facility] Work Phone: Evaluation note* Diagnosis Onset Date Resolution Status Abdominal pain acuteAcute hypokalemiaacuteChest painacuteDehydrationacuteHypokalemiaacute HypovolemiaacuteMallory-Cotton tearacuteNausea & vomitingacute [facility] Work Phone: History and physical note Author Eliana Bautista [facility] January 07, 2023 2:11amNote Date/TimeFebruary 2022 5:30pmW[place] [address] Hospitalist H&P Signed Patient: Pili Parikh MR#: [id number] : 2005 Acct:[id number] Age/Sex: 17 / F Adm Date: 3 Loc: Room: [address] [place] [address] Type: ADM INOo Attending Dr: Eliana Bautista MD Copies to: [facility] FRANKY Starkey MD~ HPI DATE [...] in the HPI or below [facility] Attestation Statement: The following information was validated [...] % (Auto) 19.9 % (.) 01/06/23 14:20 [place] % (Auto) 7.4 % (.) 01/06/23 14:20 Eos % (Auto) 2.3 % (.) 01/06/23 14:20 Baso % (Auto) 0.3 % (.) 01/06/23 14:20 Nucleat RBC Rel Count 0.1 /100 WBC (0-0.5) 01/06/23 14:20 Neut # (Auto) 12.4 x10E3/uL (1.2-7.7) H 01/06/23 14:20 Lymph # (Auto) 3.5 x10E3/uL (1.20-4.8) 01/06/23 14:20 [place] # (Auto) 1.3 x10E3/uL (0.1-1.00) H 01/06/23 [...] pH 6.5 (5.0-9.0) 01/06/23 16:10 Ur Specific [place] 1.027 (1.001-1.030) 01/06/23 16:10 Urine Protein 100 [...] signed by Eliana Bautista MD> 01/07/23 0211 [facility] Work Phone: Hospital course Narrative No data available for this section [facility] Discharge instructions Additional Instructions Follow-up with your primary care doctor Return to ED if develop worsening symptoms or concernsReg[facility] Work Phone: Hospital Discharge instructions Additional Instructions Follow-up with your primary care doctor Return to the ED if you develop worsening symptoms or concernsReg[facility] Work [facility]: Hospital Discharge instructions Additional Instructions Take Phenergan as prescribed for nausea vomiting. Take Motrin and Tylenol as needed for muscle aches and pains. Take Carafate as prescribed.[facility] Work Phone: Hospital Discharge instructions Additional Instructions [...] you should first call your surgeon at [phone] for advice. If your are unable to contact your surgeon, seek help from a hospital emergency room. [facility] Work Phone: Hospital Discharge instructions Additional Instructions [...] with your family physician as soon as possible.[facility] Work Phone: Progress note No data available for this section [facility] (narrative)No reason for referral information availableMiddletown Hospital [facility]tr Work Phone: Summary Purpose Family History [...] DATE CREATED AUTHOR AUTHOR'S ORGANIZ ATION 07/14/2018 [facility] DATE CREATED AUTHOR AUTHOR'S ORGANIZ ATION 01/04/2022 [facility] DATE CREATED AUTHOR AUTHOR'S ORGANIZ ATION 02/02/2023 [facility] DATE CREATED AUTHOR AUTHOR'S ORGANIZ ATION 07/30/2024 [facility] DATE CREATED AUTHOR AUTHOR'S ORGANIZ ATION 08/02/2024 [facility] DATE CREATED AUTHOR AUTHOR'S ORGANIZ ATION 08/05/2024 [facility] DATE CREATED AUTHOR AUTHOR'S ORGANIZ ATION 01/18/2025 [facility] DATE CREATED AUTHOR AUTHOR'S ORGANIZ ATION 08/30/2025 [facility] DATE CREATED AUTHOR AUTHOR'S ORGANIZ ATION 08/31/2025 [facility] DATE CREATED AUTHOR AUTHOR'S ORGANIZ ATION 09/06/2025 [facility] Source Comments (unrecognize d section and content) In the event this informatio n is protected by the Federal Confidentiality of Alcohol and Drug Abuse Patient Records regulations: The Federal rules restrict any use of the information to criminally investigate or prosecute any alcohol or drug abuse patient.[facility] Reason for Visit (unrecogniz ed section and content) ReasonCommentsAbdominal Pain Care Teams (unrecognized sec tion and content) Team Status: Inactive Member Role Status Dates Services [facility] Primary Care Provider Ac latesha Chand FLAME HARDENING MACHINE OPERATOR-CAttending ProviderActive Team Status: Inactive Member Role Status Dates Services [facility] Primary Care Provider Active Modesta Chand NP-CAttenca ProviderActive Team Status: Inactive Member Role Status Dates Services [facility] Primary Care Provider Active Ulises Wiley ProviderActive Team Status: Inactive Member Role Status Dates Services [facility] Primary Care Provider Active Kahlil Gardiner ProviderActive Team Status: Inactive Member Role Status Dates Services [facility] Primary Care Provider Active Josh Lopezrjoy ProviderActive Team Status: Inactive Member Role Status [facility] Services [facility] Primary Care Provider Active Kahlil Saldaña ProviderActive Team Status: Inactive Member Role Status [facility] Primary Care Provider Active Kahlil David ProviderActive Team Status: Active Member Role Status [facility] Primary Care Provider Ac tive Team Status: Inactive Member Role Status [facility] Primary Care Provider Ac Nicci Spicer ProviderActive Team Status: Inactive Member Role Status [facility] Primary Care Provider Ac francove Stevie Arnold Jr ProviderActive Team Status: Inactive Member Role Status [facility] Primary Care Provider Ac francove Kahlil David ProviderActive Team Status: Active Member Role Status [facility] Primary Care Provider Ac Josh Rajputrjoy ProviderActiveGregorio Carey , DOAdmit Provider, Attending ProviderActive Team Status: Inactive Member Role Status [facility] Primary Care Provider Ac francove Josh Davidrjoy ProviderActiveGregorio Carey , DOAdmit Provider, Attending ProviderActive Team Status: Inactive Member Role Status [facility] Primary Care Provider Ac Kahlil Rai ProviderActive Team Status: Inactive Member Role Status Dates Art Bianchi DO Emergency Provider Active Counts include 234 beds at the [facility] ProviderActive Team Status: Inactive Member Role Status [facility] Primary Care Provider Ac Kahlil Hilliard ProviderActive Team Status: Inactive Member Role Status [facility] Primary Care Provider Ac latesha Bianchi DOKeanrjoy ProviderActive Team Status: Inactive Member Role Status [facility] Primary Care Provider Active Stevie Munoz ProviderActive Team Status: Active Member Role Status [facility] Services [facility] Primary Care Provider Active Team Status: Inactive Member Role Status [facility] Primary Care Provider Active Kahlil Houston ProviderActive Team Status: Active Member Role Status [facility] Primary Care Provider Active Sejal Torres [...] BE BASED ON THE PRIMARY CLINICAL RECORDS. [employer] [facility]. provides no warranty or guarantee of the accuracy or completeness of information in this document.
[2025-10-10 07:37] LABS: Hematocrit 37.7 % (36.0-48.0); Hemoglobin 13.4 g/dL (12.0-16.0); Immature Granulocytes Abs Auto 0.13 10^3/uL (0.00-0.03); Immature Granulocytes Pct Auto 0.6 % (0.0-0.5); Lymphocytes Absolute Auto 1.4 10^3/uL (1.2-3.8); Mean Corpuscular HGB Conc 35.5 g/dL (29.9-35.2); Mean Corpuscular Hemoglobin 30.7 pg (26.7-34.0); Mean Corpuscular Volume 86.5 fL (81.0-99.0); Platelet Count 255 10^3/uL (150-450); Red Blood Count 4.36 10^6/uL (4.20-5.40); White Blood Count 21.0 10^3/uL (4.0-11.0)
[2025-10-10] MEDS: FAMOTIDINE/PF 20 MG/2 ML VIAL IV (07:41)
--- NOTE | 2025-10-10 07:46 | ED_ITS ---
HPI - Nausea/Vomiting/Diarrhea General Chief complaint: Nausea/Vomiting/Diarrhea Stated complaint: N/V Time Seen by Provider: 10/10/25 07:23 Source: patient Mode of arrival: ambulance Limitations: no limitations History of Present Illness HPI Narrative: The patient is 20-year-old female who is 12 weeks presented to the ER with nausea and vomiting after she ran out of her Zofran, she mentioned that history of 1 before that did not continue to term, and she mentioned that at that time she also had nausea and vomiting in the first trimester She still able to tolerate p.o. hydration but denying any pain or fever or any burning with urination Related Data Home Medications ?Medication ?Instructions ?Recorded ?Confirmed No Known Home Medications 10/10/2509/28 Allergies Allergy/AdvReac Type Severity Reaction Status Date / Time metoclopramide (From Reglan) AdvReac Intermediate facial Verified 10/10/25 06:41 drooping Review of Systems ROS Status of ROS 10 or more systems reviewed and unremark able except as noted in history and below [facility] Medical History (Updated 10/10/25 @ 08:01 by Zohreh Mosquera MD) Marijuana use ?F12.90 - Cannabis use, unspecified, uncomplicated (ICD-10) Asthma ?J45.909 - Unspecified asthma, uncomplicated (ICD-10) Leukocytosis ?D72.829 - Elevated white blood cell count, unspecified (ICD-10) Bipolar 1 disorder ?F31.9 - Bipolar disorder, unspecified (ICD-10) Migraine ?G43.909 - Migraine, unspecified, not intractable, without status migrainosus (ICD-10) POTS (postural orthostatic tachycardia syndrome) ?G90.A - Postural orthostatic tachycardia syndrome [POTS] (ICD-10) Cyclic vomiting syndrome ?R11.15 - Cyclical vomiting syndrome unrelated to migraine (ICD-10) Cyclic vomiting syndrome ?R11.15 - Cyclical vomiting syndrome unrelated to migraine (ICD-10) Fall ?W19.XXXA - Unspecified fall, initial encounter (ICD-10) Fracture of tibial plateau ?S82.143A - Displaced bicondylar fracture of unspecified tibia, initial encounter for closed fracture (ICD-10) Surgical History History of appendectomy ?Z90.49 - Acquired absence of other specified parts of digestive tract (ICD- 10) Family History Father Family history of stroke Family history of diabetes mellitus Family history of cancer Family history of hypertension Family history of CHF (congestive heart failure) Grandfather Family history of stroke Grandmother Family history of myocardial infarction Mother Family history of diabetes mellitus Family history of cancer Social History (Updated 05/03/25 @ 14:23 by Emili Benitez) Within the past year, how often did you have a drink containing alcohol: never Score interpretation: A score less than 3 is consistent with normal alcohol consumption. Smoking status: Current every day smoker Non-prescribed substance use: cannabis (any form) Previous occupational history: [employer] Highest level of school completed/degree received: high school graduate Little interest or pleasure in doing things: not at all Feeling down, depressed, or hopeless: not at all Feel stressed/tense/nervous/anxious/difficulty sleeping: not at all Do you think of yourself as: straight/heterosexual Gender Identity: female Exam Narrative Exam Narrative: Nurses notes and vital signs reviewed and patient is not hypoxic. General: Well-appearing and in no apparent distress. Skin: Warm, dry, no pallor noted. No rash. Head: Normocephalic, atraumatic. Neck: Supple, non-tender. Cardiovascular: Regular Rate and Rhythm without murmur, gallop or rub. Respiratory: No accessory muscle use or respiratory distress. Lungs are clear to auscultation, no wheezing, rales or rhonchi Back: No midline thoracic or lumbar vertebral tenderness. No CVA tenderness GI: Abdomen is soft, non-distended. Normal bowel sounds. No masses appreciated. No tenderness to palpation. No rebound, guarding, or rigidity noted. Neurological: A&O x4. No cranial nerve dysfunction observed. No truncal ataxia. Moves all extremities. Sensation intact. Psychiatric: Cooperative and interactive. Normal mood and affect. Constitutional Vital Signs, click to edit/add: Last Vital Signs Temp 98.8 F 10/10/25 06:38 Pulse 94 H 10/10/25 06:38 Resp 18 10/10/25 06:38 BP 117/88 10/10/25 06:43 Pulse Ox 100 10/10/25 06:51 O2 Del Method Room Air 10/10/25 06:51 Course Vital Signs Vital signs: Vital Signs Temperature 98.8 F 10/10/25 06:38 Pulse Rate 94 H 10/10/25 06:38 Respiratory Rate 18 10/10/25 06:38 Pulse Oximetry 100 10/10/25 06:38 Oxygen Delivery Method Room Air 10/10/25 06:38 Temperature 98.8 F 10/10/25 06:38 Pulse Rate 94 H 10/10/25 06:38 Respiratory Rate 18 10/10/25 06:38 Blood Pressure 117/88 10/10/25 06:43 Pulse Oximetry 100 10/10/25 06:51 Oxygen Delivery Method Room Air 10/10/25 06:51 MDM - Nausea/Vomiting/Diarrhea MDM Narrative Medical decision making narrative: We did order blood workup and Zofran as well as IV fluid 1 L and Pepcid But the patient did not want to wait for the blood workup for the IV fluids and she is just decided to sign herself AM, I presented the bedside and explained to the patient that we are here to help and if there is any reason that she wants to leave but she did not provide any reason she said that she just want to go home The patient CBC shows leukocytosis and the chemistry showing some mild hypokalemia which is a chronic problem for this patient But she was provided with Zofran she requested Benadryl before leaving [place] and she was provided with that too The patient informed that we are here to help when she is to come back to us at any time that she is still having nausea vomiting and the patient understand that completely Lab Data Labs: Lab Results 10/10/25 Range/Units 06:44 WBC 21.0 H (4.0-11.0) 10^3/uL RBC 4.36 (4.20-5.40) 10^6/uL Hgb 13.4 (12.0-16.0) g/dL Hct 37.7 (36.0-48.0) % MCV 86.5 (81.0-99.0) fL MCH 30.7 (26.7-34.0) pg MCHC 35.5 H (29.9-35.2) g/dL RDW 13.1 (11.0-15.0) % Plt Count 255 (150-450) 10^3/uL MPV 11.8 (9.5-13.5) fL Neut % (Auto) 90.1 H (43.0-75.0) % Lymph % (Auto) 6.5 L (20.5-60.0) % [place] % (Auto) 2.7 (1.7-12.0) % Eos % (Auto) 0.0 L (0.9-7.0) % Baso % (Auto) 0.1 L (0.2-2.0) % Neut # (Auto) 18.9 H (1.4-6.5) 10^3/uL Lymph # (Auto) 1.4 (1.2-3.8) 10^3/uL [place] # (Auto) 0.6 (0.3-0.8) 10^3/uL Eos # (Auto) 0.0 (0.0-0.7) 10^3/uL Baso # (Auto) 0.0 (0.0-0.1) 10^3/uL Abs Immat Gran (auto) 0.13 H (0.00-0.03) 10^3/uL Imm/Tot Granulo (auto) 0.6 H (0.0-0.5) % Sodium 137 (136-145) mmol/L Potassium 3.2 L (3.5-5.1) mmol/L Chloride 100 (98-107) mmol/L Carbon Dioxide 21.8 (21.0-32.0) mmol/L Anion Gap 18.4 BUN 24.0 H (7.0-18.0) mg/dL Creatinine 0.76 (0.55-1.02) mg/dL Est GFR ( Amer) >60 (>=60 mL/min/1.73m^2) Est GFR (Non-Af Amer) >60 (>=60 mL/min/1.73m^2) BUN/Creatinine Ratio 31.6 Glucose 139 H (74-106) mg/dL Calcium 10.1 (8.5-10.1) mg/dL Total Bilirubin 0.5 (0.2-1.0) mg/dL AST 16 (15-37) U/L ALT 29 (14-59) U/L Alkaline Phosphatase 75 (46-116) U/L Total Protein 8.1 (6.4-8.2) g/dL Albumin 4.2 (3.4-5.0) g/dL Globulin 3.9 g/dL Albumin/Globulin Ratio 1.1 Discharge Plan Discharge Stand Alone Forms: Portal Instructions Chief Complaint: Nausea/Vomiting/Diarrhea Clinical Impression: Nausea and vomiting Patient Disposition: Left Against Medical Advice Time of Disposition Decision: 08:01 Condition: Good Prescriptions / Home Meds: No Action No Known Home Medications Print Language: Senegalese Referrals: Physician,Non-Staff, MD [Primary Care Provider] - 1 week
[2025-10-10] MEDS: DIPHENHYDRAMINE HCL 50 MG/ML VIAL 25 MG IVP (07:53)
[2025-10-10 07:56] LABS: Alanine Aminotransferase 29 U/L (14-59); Albumin Globulin Ratio 1.1; Albumin Level 4.2 g/dL (3.4-5.0); Alkaline Phosphatase 75 U/L (46-116); Anion Gap 18.4; Aspartate Amino Transferase 16 U/L (15-37); Blood Urea Nitrogen 24.0 mg/dL (7.0-18.0); Calcium 10.1 mg/dL (8.5-10.1); Carbon Dioxide 21.8 mmol/L (21.0-32.0); Chloride 100 mmol/L (98-107); Estimated GFR (African America >60 (>=60 mL/min/1.73m^2); Estimated GFR (Non-African Ame >60 (>=60 mL/min/1.73m^2); Globulin 3.9 g/dL; Glucose 139 mg/dL (74-106); Potassium 3.2 mmol/L (3.5-5.1); Sodium 137 mmol/L (136-145); Total Protein 8.1 g/dL (6.4-8.2)
== END 2025-10-10 08:02 | disposition left against medical advice (07) ==
PROVIDERS: Emergency Provider Emergency Medicine
DX: O21.9 Vomiting of pregnancy, unspecified (principal); O99.331 Smoking (tobacco) complicating pregnancy, first trimester; F17.200 Nicotine dependence, unspecified, uncomplicated; Z3A.12 12 weeks gestation of pregnancy
CPT/HCPCS: 36415; 80053; 84702; 85025; 96374; 96375; 99284; J1200; J2405; J3490

== ENCOUNTER 2025-10-11 12:32 | Emergency (ER) | payer OTHER, SELFPAY ==
[2025-10-11 12:36] VITALS: BP 115/69; PULSE 58; TEMP 36.6; O2SAT 100; BMI 42.1
--- OUTSIDE RECORDS SUMMARY | 2025-10-11 12:48 | XMS_ITS | CCD ---
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 Primary Care Provider FRANKY Rivera Emergency Provider MD Colten Fry Jr Emergency Provider DO Matthew Gilson Emergency Provider [phone] Aurelio, DO Gregorio Admit Provider Aurelio DO Gregorio Attending Provider [facility] Prov ider FRANKY Rievra Emergency Provider [phone] MD Colten Fry Jr Emergency Provider Matthew DO Gilson Emergency Provider [phone] Aurelio DO Gregorio Admit Provider [phone] Aurelio, DO Gregorio Attending Provider [phone] MILY Chand Attending Pr ovider TuDO Gilda pittsrick M Emergency Provider [facility] Prov ider FRANKY Rivera Emergency Provider MD Colten Fry Jr Emergency Provider DO Matthew Gilson Emergency Provider Aurelio, DO Gregorio Admit Provider [phone] Aurelio DO Gregorio Attending Provider MILY Chand Attending Pr ovider DO Ravi Arguello Emergency Provider DO Art Bianchi Emergency Provider [phone] DO Robert Bolanos Emergency Provider [facility] Primary Care Provider MD Corey Newberry Emergency Provider [phone] [facility] Primary Care Prov ider DO Federico Randolph Emergency Provider KATE Damian Emergency Provider [phone] MD Eliana Bautista Admit Provider MD Eliana Bautista Attending Provider [phone] SANDRO, DR VU Primary Care Unavailable DALIA ., AUSTIN Admitting Unavailable DALIA ., AUSTIN Attending Unavailable DALIA ., AUSTIN Consulting Unavailable DIAB ., IRWIN Admitting Unavailable ETHAN ., IRWIN Attending Unavailable SANDRO, DR VU Primary Care Unavailable KIA ARVIZU Consulting Unavailable ETHAN ., IRWIN Consulting Unavailable Colten Miller Unavailable [facility] Primary Care Provider MILY Chand Attending Pr ovider MD Colten Miller Attending Provider [phone] [facility] Primary Care Provider DO Ravi Arguello Emergency Provider [phone] MODESTA ARCHIBALD Primary Care Physician [phone] [facility] [place] Primary Care Provider MD Femi Benitez Emergency Provider [phone] Cresencio Abel Attending Unavailable MODESTA ARCHIBALD Primary Care Unavailable MODESTA ARCHIBALD Primary Care Unavailable August Bermudez Attending Unavailable MODESTA ARCHIBALD Primary Care Unavailable DO Isaak Francis Attending Unavailable [facility] Primary Care Provider MD Ania Watson Emergency Provider [phone] MODESTA ARCHIBALD Primary Care Unavailable August Bermudez Attending Unavailable Cresencio Abel Attending Unavailable MODESTA ARCHIBALD Primary Care Unavailable MODESTA CHAND Primary Care Physician August Bermudez Attending Unavailable August Bermudez Attending Unavailable [facility] Primary Care Provider [phone] Rd Brown PA-C Emergency Provider Makayla Monk DO Attending Provider [phone] Jasmeet Dahl MD Attending Provider [phone] Drew Steinberg MD Attending Provider [phone] Federico Randolph Attending Unavailable August Bermudez Attending Unavailable Pradeep Guthrie Attending Unavailable Pradeep Guthrie Attending Unavailable NO FAMILY, PHYSICIAN Primary Care Provider Unava ilable Kelsey Espino APRN Attending Provider [phone] Makayla Monk Attending Unavailable Makayla Monk Admitting Unavailable Drew Steinberg Attending Unavailable Drew Steinberg Admitting Unavailable NO FAMILY, PHYSICIAN Primary Care Unavailable Kelsey Espino Attending Unavailable Kelsey Espino Admitting Unavailable [facility] Primary Care Unavaila Rd Marin Attending Unavailable Rd Brown Admitting Unavailable Jasmeet Dahl Admitting Unavailable Jasmeet Dahl Attending Unavailable Allergies Allergy ClassificationReported Allergen(s)Allergy TypeDate of OnsetReaction(s) Facility (16 sources)Haloperidol; Translations: [Haloperidol]Drug [id number] Unknown Reaction, [facility] (18 sources)Metoclopramide; Translations: [Metoclopramide]Drug [id number] Unknown (qualifier value)[facility] (6 sources)Haloperidol; Translations: [Haldol]Drug AllergyThe [facility] (6 sources)Iothalamate; Translations: [Reglan]Drug AllergyThe [facility] Medications Current Medications MedicationDrug Class(es)DatesSig (Normalized)Sig (Original)acetaminophen 325 mg / HYDROcodone bitartrate 5 mg oral tablet (20 sources)Opioid AgonistStart: 03-13-2024 End: 64-32-3921Rqdnq 325 mg-5 mg oral tablet 1 tab(s), Oral, q6hr for pain for 3 day(s), 7 tab(s), Refill(s) 0, [facility]/pharmacy #[id number], 160, cm, 03/13/24 17:38:00 EDT, Height/Length Dosing, 95.5, kg, 03/13/24 17:38:00 EDT, Weight Dosing Start Date: 03/13/24 Stop Date: 03/16/24 Status: OrderedStart: 23-08-0174boyc 15 mL by mouth every eight hours as needed for painHYDROcodone-acetaminophen (HYCET) 7.5- 325 mg/15 mL oral liquid Indications: Abscess, peritonsillar Take 15 mL by mouth every 8 hours as needed for pain. 120 mL 0 10/09/2021 ActiveStart: 12-15-2019 End: 58-65-5312ehmw 1 tablet by mouth every six hours as needed for pain Hydrocodone-Acetaminophen ([place]) 5-325 mg tablet Discontinued 1 TAB PO Q6H as needed for pain 6 2 December 15, 2019 December 31, 2019 1:37pmStart: 12-15-2019 End: 55-96-7627Gvjoc: 04-20-2019 End: 93-84-9942kyps 1 tablet by mouth every six hours as needed for pain Hydrocodone-Acetaminophen 5-325 mg Tablet Discontinued 1 TAB PO Q6H as needed for Pain 20 April 20, 2019 May 05, 2019 8:42pmStart: 04-20-2019 End: 83-61-5915Wnerw: 02-19-2019 End: 89-37-5829mwev 1 tablet by mouth twice daily as needed for painHydrocodone- Acetaminophen ([place]) 5-325 mg tablet Discontinued 1 TAB PO Twice daily as needed for pain 6 February 19, 2019 March 08, 2019 3:53pmStart: 02-19-2019 End: 39-98-8582Mavrloi on above:Take 15 mL by mouth every 8 hours as needed for pain.cephalexin 500 mg oral capsule (20 sources)Cephalosporin AntibacterialStart: 77-70-7111yijy 1 capsule by mouth every eight hoursStart: 91-26-8878vwhg 1 capsule by mouth every eight hours Cephalexin 500 MG 1 capsule Orally every 8 hrs for 2 days Apr, Active Start: 02-06-2022 End: 59-50-9209dknw 1 tablet by mouth four times dailyCephalexin 250 mg tablet Discontinued 250 MG PO Four times daily 24 06February 06, 2022 1:00am 2021 8:15pmStart: 08-20-2021 End: 19-76-4363apyy 1 capsule by mouth twice dailyCephalexin 500 mg capsule Discontinued 500 MG PO Twice daily August 20, 2021 12:00am September 05, 2021 11:25pmStart: 06-01-2021 End: 12-06-2245efpo 2 capsules by mouth every twelve hoursCephalexin 500 mg Capsule Discontinued 1000 MG PO Q12H 40 June 01, 2021 12:00am July 19, 2021 2:07pmStart: 06-01-2021 End: 13-96-3126beyr 1000 mg by mouth every twelve hoursCephalexin Discontinued 1000 MG PO Q12H 40 June 01, 2021 12:00am July 19, 2021 2:07pmStart: 06-01-2021 End: 11-84-7879Yxnor: 04-14-2021 End: 85-31-0948hpaz 2 capsules by mouth twice dailyCephalexin 500 mg capsule Discontinued 1000 MG PO Twice daily April 14, 2021 12:00am May 10, 2021 11:08amStart: 04-14-2021 End: 35-64-5644zhhc 1000 mg by mouth twice dailyCephalexin Discontinued 1000 MG PO Twice daily April 14, 2021 12:00am May 10, 2021 11:08amStart: 04-14-2021 End: 34-42-6890Astzi: 10-07-2020 End: 92-72-2982ilgy 1 capsule by mouth twice dailyCephalexin (Keflex) 500 mg capsule Discontinued 500 MG PO Twice daily 16 09October 07, 2020 1:00am January 12, 2021 1:34pmStart: 03-23-2018 End: 36-96-7407edxo 1 capsule by mouth four times dailyCephalexin (Keflex) 500 mg Capsule Discontinued 500 MG PO Four times daily 40 March 23, 2018 12:00am April 05, 2018 10:48pmStart: 03-23-2018 End: 11-90-6274etfkeogvnulvfql hydrochloride 5 mg oral tablet (1 source)Muscle RelaxantStart: 01-16-2025 End: 99-91-5095ytzg 1 tablet by mouth three times dailycyclobenzaprine 5 mg Tab 5 mg = 1 tab(s), Oral, TID, X 7 day(s), # 21 tab(s), Refills(s) 0, Pharmacy: [facility]/pharmacy #[id number], 157, cm, 01/16/25 17:56:00 EST, Height/Length Dosing, 95, kg, 01/16/25 17:56:00 EST, Weight Dosing Start Date: 01/16/25 Stop Date: 01/23/25 Status: OrderedEtonogestrel (3 sources)ProgestinNexplanon Activemethocarbamol 500 mg oral tablet (2 sources)Muscle RelaxantStart: 03-13-2024 End: 92-37-0114uyji 1 tablet by mouth three times dailyRobaxin 500 mg Tab 500 mg = 1 tab(s), Oral, TID, X 3 day(s), # 9 tab(s), Refills(s) 0, Pharmacy: [facility] /pharmacy #[id number], 160, cm, 03/13/24 17:38:00 EDT, Height/Length Dosing, 95.5, kg, 03/13/24 17:38:00 EDT, Weight Dosing Start Date: 03/13/24 Stop Date: 03/16/24 Status: Orderednaproxen 500 mg oral tablet (20 sources)Nonsteroidal Anti-inflammatory DrugStart: 32-99-2118njxq 1 tablet by mouth twice daily as needed for painnaproxen 500 mg Tab 500 mg = 1 tab(s), Oral, BID, PRN Pain, with food, # 20 tab(s), Refills(s) 0, Pharmacy: [facility]/pharmacy #[id number], 157, cm, 01/16/25 17:56:00 EST, Height/Length Dosing, 95, kg, 01/16/25 17:56:00 EST, Weight Dosing Start Date: 01/16/25 Status: Ordered Start: 02-19-2019 End: 18-05-9197abig 1 tablet by mouth twice daily as needed for painNaproxen 500 mg tablet Discontinued 500 MG PO Twice daily as needed for pain February 19, 2019 12:00am March 08, 2019 3:53pm administer with food or milkondansetron 4 mg disintegrating oral tablet (20 sources)Serotonin-3 Receptor AntagonistStart: 60-49-0312Ttrfh: 11-09-2022 End: 38-50-4606bwnt 1 tablet by mouth every eight hours as needed for nausea and vomitingOndansetron 8 mg tablet,disintegrating Discontinued 8 MG PO Q8H as needed for nausea and vomiting 10 November 09, 2022 1:00am October 28, 2024 10:59pmStart: 11-07-2022 End: 30-40-7757Amfkfnaaomd Hcl 4 mg tablet Discontinued 4 MG PO every 6 to 8 hours as needed for nausea and vomiting November 07, 2022 1:00am November 09, 2022 4:12pmStart: 08-20-2022 End: 49-15-7219Rtsrmodaacp 4 mg tablet,disintegrating Discontinued 4 MG PO every 6 to 8 hours as needed for Fvflzh42 August 20, 2022 12:00am January 06, 2023 5:46pmStart: 05-14-2022 End: 68-18-8686ahmj 1 tablet by mouth every eight hours as needed for nausea and vomitingOndansetron 4 mg tablet,disintegrating Discontinued 4 MG PO Q8H as needed for nausea and vomiting 72 May 14, 2022 12:00am August 18, 2022 12:32pmStart: 02-07-2022 End: 52-89-8199Znddaptzjcp 4 mg Tablet,Disintegrating Discontinued 4 MG PO every 6 to 8 hours as needed for Aucwrz67 February 07, 2022 1:00am March 08, 2022 8:15pmStart: 07-15-2021 End: 43-35-5031msik 1 tablet by mouth every eight hours as needed for nausea and vomitingOndansetron Hcl (Zofran) 4 mg tablet Discontinued 4 MG PO Q8H as needed for nausea and vomiting 10 July 15, 2021 12:00am July 19, 2021 2:07pm Start: 04-14-2021 End: 14-03-1445mjcm 1 tablet by mouth every eight hours as needed for nausea and vomitingOndansetron 8 mg tablet,disintegrating Discontinued 8 MG PO Q8H as needed for nausea and vomiting 10 April 14, 2021 12:00am July 19, 2021 2:07pmStart: 10-02-2020 End: 58-33-1174czyv 1 tablet by mouth every eight hours as needed for nausea and vomitingOndansetron 4 mg tablet,disintegrating Discontinued 4 MG PO Q8H as needed for nausea and vomiting 3Nov2019 1:00am January 12, 2021 1:35pmStart: 09-23-2020 End: 67-48-4114orcd 1 tablet by mouth every eight hours as needed for nausea and vomitingOndansetron Hcl 4 mg tablet Discontinued 4 MG PO Q8H as needed for nausea and vomiting September 23, 2020 12:00am January 12, 2021 1:35pm Start: 06-25-2020 End: 12-47-1270gknh 1 tablet by mouth three times daily as needed for nausea and vomitingOndansetron 4 mg tablet,disintegrating Discontinued 4 MG PO Three times daily as needed for nausea and vomiting 10 June 25, 2020 12:00am July 19, 2020 2:22pmStart: 01-03-2020 End: 93-30-5243jzzx 1 tablet by mouth every eight hours as needed for nausea and vomitingOndansetron Hcl (Zofran) 4 mg tablet Discontinued 4 MG PO Q8H as needed for nausea and vomiting 6 2February 2019 1:00am February 19, 2020 6:54pm Start: 10-25-2019 End: 76-00-1291Mskrhbohyyl 4 mg tablet,disintegrating Discontinued 4 MG PO every 6 to 8 hours as needed for nauseaand vomiting April 23, 2020 12:00am May 19, 2020 4:07amStart: 09-30-2019 End: 64-88-2044jkzw 1 tablet by mouth four times daily as needed for nausea and vomitingOndansetron Hcl (Zofran) 4 mg tablet Discontinued 4 MG PO Four times daily as needed for nausea andvomiting September 30, 2019 12:00am October 24, 2019 10:46pmStart: 09-30-2019 End: 33-98-6826Sxffu: 06-24-2019 End: 79-32-5924cgfa 1 tablet by mouth every six hours as needed for nausea and vomitingOndansetron 4 mg tablet,disintegrating Discontinued 4 MG PO Q6H as needed for nausea and vomiting June 24, 2019 12:00am September 03, 2019 8:25pmStart: 06-24-2019 End: 36-87-8364Cxeli: 05-02-2019 End: 01-91-1864Scpsmkvjaew 8 mg tablet,disintegrating Discontinued 8 MG PO EVERY 8-12 HOURS as needed for nausea and vomiting June 02, 2019 12:00am September 03, 2019 8:25pmStart: 05-02-2019 End: 23-99-5179ibyi 1 tablet by mouth three times daily as needed for nausea and vomitingOndansetron 8 mg tablet,disintegrating Discontinued 8 MG PO Three times daily as needed for nausea and vomiting May 02, 2019 12:00am September 03, 2019 8:25pmStart: 02-19-2019 End: 60-75-8564vxvg 1 tablet by mouth every eight hours as needed for nausea and vomitingOndansetron 4 mg tablet,disintegrating Discontinued 4 MG PO Q8H as needed for nausea and vomiting February 19, 2019 12:00am March 08, 2019 3:53pmStart: 12-28-2018 End: 13-45-4564bbcb 1 tablet by mouth three times daily as needed for nausea and vomitingOndansetron Hcl (Zofran) 8 mg Tablet Discontinued 8 MG PO Three times daily as needed for Nausea And Vomiting December 28, 2018 1:00am May 05, 2019 8:42pmStart: 09-04-2018 End: 73-24-0752cohm 1 tablet by mouth every eight hours as needed for nausea and vomitingOndansetron (Zofran Odt) 4 mg tablet,disintegrating Discontinued 4 MG PO Q8H as needed for nausea and vomiting 9 September 04, 2018 12:00am October 16, 2018 4:08pmStart: 08-29-2018 End: 66-81-1682gwmr 1 tablet by mouth every eight hoursOndansetron (Zofran Odt) 4 mg tablet,disintegrating Discontinued 4 MG PO Q8H 9 August 29, 2018 1 2:00am August 31, 2018 12:00am September 01, 2018 12:02amStart: 03-27-2018 End: 98-33-2626fglr 1 tablet by mouth every four hours for nauseaOndansetron (Zofran Odt) 4 mg Tablet,Disintegrating Discontinued 4 MG PO Q4H as needed for Nausea March 27, 2018 12:00am April 06, 2018 12:29am administer first dose 30 minutes before start of emetogenic chemotherapyStart: 03-27-2018 End: 14-75-0848Kfayo: 01-03-2018 End: 09-10-3751Gewrgisflqd (Zofran Odt) 4 mg tablet,disintegrating Discontinued 8 MG PO Q8H as needed for nausea and vomiting 9 3 January 03, 2018 1:00am January 17, 2018 3:10amStart: 01-03-2018 End: 98-10-9666Zckzg: 10-03-2017 End: 33-04-1708jbkg 1 tablet by mouth every eight hours as needed for nausea Ondansetron (Zofran Odt) 4 mg tablet,disintegrating Discontinued 4 MG PO Q8H as needed for nausea October 03, 2017 1:00am October 06, 2017 1:12amStart: 10-03-2017 End: 51-06-9606aoqy 1 tablet by mouth every eight hours [...] meq extended release oral tablet (20 sources)Start: 20-84-5400hkvm 1 tablet by mouth twice dailyStart: 08-22-2022 End: 26-21-2100ssmy 1 capsule by mouth once dailyPotassium Chloride 10 mEq capsule, extended release Discontinued 10 MEQ PO Daily 09 06August 22, 2022 12:00am November 09, 2022 4:12pmStart: 04-26-2018 End: 04-15-3129imuj 20 mEq by mouth once dailyPotassium Chloride 20 mEq packet Discontinued 20 MEQ PO Daily April 26, 2018 12:00am May 08, 2018 6:56pm promethazine hydrochloride 12.5 mg oral tablet (20 sources)PhenothiazineStart: 48-45-7266dmzz 1 tablet by mouth every six hours as needed for nauseapromethazine 12.5 mg oral tablet 12.5 mg = 1 tab(s), Oral, q6hr, PRN for nausea/vomiting, # 10 tab(s), Refills(s) 0, Pharmacy: [facility]/pharmacy #[id number], 157, cm, 01/16/25 17:56:00 EST, Height/Length Dosing, 95, kg, 01/16/25 17:56:00 EST, Weight Dosing Start Date: 01/16/25 Status: OrderedStart: 07-30-2024 take 1 tablet by mouth every eight hours as needed for nauseapromethazine 12.5 mg oral tablet 12.5 mg = 1 tab(s), Oral, q8hr, PRN as needed for nausea/vomiting,second line, # 10 tab(s), Refills(s) 0, Pharmacy: [facility]/pharmacy #[id number], 157, cm, 07/30/24 19:37:00 EDT, Height/Length Dosing, 96.1, kg, 07/30/24 19:37:00 EDT, Weight Dosing Start Date: 07/30/24 Status: OrderedStart: 07-30-2024 take 12.5 mg rectal route every eight hours as needed for nauseaPhenergan 12.5 mg Supp 12.5 mg = 1 supp, Rectal, q8hr, PRN as needed for nausea/vomiting, 3rd line,# 6 EA, Refills(s) 0, [id number], cm, 07/30/24 19:37:00 EDT, Height/Length Dosing, 96.1, kg, 07/30/24 19:37:00 EDT, Weight Dosing Start Date: 07/30/24 Status: OrderedStart: 05-25-2023 End: 27-89-9056Trlnvmerzpmm 25 mg tablet Discontinued 12.5 MG PO Three times daily as needed for nausea and vomiting May 25, 2023 8:37am October 28, 2024 10:59pmStart: 73-08-1162mnyx 12.5 mg by mouth three times dailyPromethazine Active 12.5 MG PO Three times daily May 25, 2023 8:37amStart: 01-02-2023 End: 32-61-7605Njsdczjkpjnr 25 mg suppository Discontinued 25 MG SD Q6H as needed for Nausea January 02:00am October 28, 2024 10:59pmStart: 12-31-2022 End: 11-74-8769wsvl 1 tablet by mouth three times daily as needed for nausea and vomitingPromethazine 25 mg tablet Discontinued 25 MG PO Three times daily as needed for nausea and svfykpqs35 January 07, 2023 1:00am May 25, 2023 8:36amStart: 05-15-2022 End: 50-12-0302fpka 1 tablet by mouth three times daily as needed for nausea Promethazine 25 mg tablet Discontinued 25 MG PO Three times daily as needed for Nausea May 15, 2022 12:00am August 18, 2022 12:33pmStart: 02-09-2022 End: 23-21-3878Xndaifgcdwcf 25 mg suppository Discontinued 25 MG SD Q6H as needed for nausea and vomiting 2021 12:00am March 08, 2022 8:15pmStart: 09-30-2021 End: 10-83-0265jhoy 3 tablets by mouth three times daily as needed for nausea and vomitingPromethazine 12.5 mg tablet Discontinued 12.5 MG PO Three times daily as needed for nausea and vomiting 15 5 February 07, 2022 1:00am March 08, 2022 8:15pm 3 doses during day; last dose no later than 4 hr before bedtime Start: 09-30-2021 End: 09-32-4913fcwj 3 tablets by mouth twice daily as needed for nausea and vomitingPromethazine 12.5 mg tablet Discontinued 12.5 MG PO Twice daily as needed for nausea and vomiting 2020 12:00am February 06, 2022 11:25am 3 doses during day; last dose no later than 4 hr before bedtimeStart: 09-30-2021 End: 89-76-9019Qwuvobzkbnui 12.5 mg suppository Discontinued 12.5 MG SD Once September 30, 2021 12:00am 2020 9:34pmStart: 09-30-2021 End: 78-05-4114Ppqepnrzymin Discontinued 12.5 MG SD Once September 30, 2021 12:00am October 08, 2021 9:34pmStart: 09-30-2021 End: 21-26-6022Fveck: 04-23-2020 End: 37-39-4523ttpi 1 tablet by mouth every six hours as needed for nausea and vomitingPromethazine 12.5 mg tablet Discontinued 12.5 MG PO Q6H as needed for nausea and vomiting April 23, 2020 12:00am June 25, 2020 5:37pmStart: 03-21-2020 End: 54-82-7330Shzpiysipwrv 25 mg tablet Discontinued 12.5 MG PO Every 8 hours as needed for nausea and vomiting March 21, 2020 12:00am June 25, 2020 5:37pmStart: 03-21-2020 End: 27-20-9381snbb 12.5 mg by mouth every eight hoursPromethazine Discontinued 12.5 MG PO Every 8 hours March 21, 2020 12:00am June 25, 2020 5:37pm Start: 03-21-2020 End: 80-55-5922Eqbnp: 05-10-2019 End: 79-75-7375Wvxufwznfnkv (Phenergan) 25 mg suppository Discontinued 25 MG SD Q4H as needed for nausea and vomiting May 10, 2019 12:00am September 03, 2019 8:25pmStart: 03-08-2019 End: 80-19-9259svpx 1 tablet by mouth every four to six hours as needed for nausea and vomitingPromethazine 25 mg tablet Discontinued 25 MG PO EVERY 4-6 HOURS as needed for nausea and vomiting March 08, 2019 12:00am March 23, 2019 5:49pmStart: 02-13-2018 End: 02-31-7123Ntagijpqciws (Phenergan) 25 mg suppository Discontinued 25 MG SD Q8H as needed for nausea and vomiting February 13, 2018 12:00am March 13, 2018 10:44pmStart: 01-03-2018 End: 31-33-5665Qiywsgdrdbqh 25 mg suppository Discontinued 25 MG SD Q6H as needed for Nausea April 23, 2018 6:04pmOctober 16, 2018 4:08pmStart: 10-03-2017 End: 55-66-0601mmkf 1 tablet by mouth every twelve hoursPromethazine 25 tablet Discontinued 25 MG PO Q12H October 03, 2017 1:00am April 06, 2018 12:30am Start: 08-24-2016 End: 35-90-7770xwjd 1 tablet by mouth every six hours as needed for nausea and vomitingPromethazine 25 mg tablet Discontinued 25 MG PO Q6H as needed for nausea and vomiting August 19, 2022 12:00am August 19, 2022 8:05pmZofran ODT 4 mg Tab-Dis (2 sources)Start: 10-24-6342cmtc 1 tablet by mouth every eight hours as needed for nauseaZofran ODT 4 mg Tab-Dis 4 mg = 1 tab(s), Oral, q8hr, PRN Nausea/Vomiting, # 16 tab(s), Refills(s) 0, Pharmacy: [facility]/pharmacy #[id number], 157, cm, 07/30/24 19:37:00 EDT, Height/Length Dosing, 96.1, kg, 07/30/24 19:37:00 EDT, Weight Dosing Start Date: 07/30/24 Status: Ordered Completed/Discontinued Medications MedicationDrug Class(es)DatesSig (Normalized)Sig (Original)acetaminophen 325 mg / oxyCODONE hydrochloride 5 mg oral tablet (15 sources)Opioid AgonistStart: 05-25-2023 End: 19-47-3184gnug 1 tablet by mouth twice dailyOxycodone-Acetaminophen 5-325 mg tablet Discontinued 5 - 325 TAB PO 2 times daily May 25, 2023 12:00am October 28, 2024 10:59pmStart: 29-12-9861jljv 1 tablet by mouth every four to six hours as needed for painPercocet 5-325 MG 1 tablet as needed for pain Orally up to every 4-6 hrs for 5 days SANTO: [id number] Apr, Activetake 1 tablet by mouth every six hoursoxyCODONE-Acetaminophen 5-325 MG 1 tablet as needed Orally every 6 hrs [id number] 200 actuat albuterol 0.09 mg/actuat metered dose inhaler (20 sources)beta2-Adrenergic AgonistStart: 08-20-2021 End: 25-63-3711Xaqprfvpn Sulfate 90 mcg/actuation HFA aerosol inhaler Discontinued 2 INH INHALATION Q6H as needed for shortness of breath or wheezing August 20, 2021 12:00am September 05, 2021 11:25pm administer with spacer Start: 08-20-2021 End: 41-04-1109Cptym: 05-05-2019 End: 18-39-1794atsg 1 puff(s) by inhalation every four to six hours as needed for wheezingAlbuterol Sulfate (Proventil Hfa) 90 mcg/actuation Hfa Aerosol Inhaler Discontinued 2 PUFF INHALATION EVERY 4-6 HOURS as needed for Shortness Of Breath Or Wheezing May 05, 2019 12:00am September 03, 2019 8:24pm with spacerStart: 05-05-2019 End: 47-82-2012Nwule: 12-21-2017 End: 12-63-9837kjty 1 puff(s) by inhalation every four to six hours as needed for wheezingAlbuterol Sulfate 90 mcg/actuation Hfa Aerosol Inhaler Discontinued 2 PUFF INHALATION EVERY 4-6 HOURS as needed for Shortness Of Breath Or Wheezing December 21, 2017 1:00am July 19, 2021 2:07pmStart: 12-21-2017 End: 80-05-5284xjmz 1 puff(s) by inhalation every four to six hoursAlbuterol Sulfate Discontinued 2 PUFF INHALATION EVERY 4-6 HOURS December 21, 2017 12:00am July 19, 2021 1:07pmStart: 12-21-2017 End: 23-22-2750jsiq 1 puff(s) by inhalation every four to six hoursAlbuterol Sulfate Discontinued 2 PUFF INHALATION EVERY 4-6 HOURS December 21, 2017 1:00am July 19, 2021 2:07pmStart: 44-45-1967todc 2 puff(s) by inhalation every four hours as needed for wheezingAlbuterol Sulfate HFA 108 (90 Base) MCG/ACT 2 puffs as needed Inhalation every 4 hrs prn for wheezing for 5 days PRN Jul, ActiveAlbuterol Sulfate 90 mcg/actuation Hfa Aerosol Inhaler (3 sources)Start: 12-21-2017 End: 75-96-4574nkxr 1 puff(s) by inhalation every four to six hours as needed for wheezingAlbuterol Sulfate 90 mcg/actuation Hfa Aerosol Inhaler Discontinued 2 PUFF INHALATION EVERY 4-6 HOURS as needed for Shortness Of Breath Or Wheezing December 21, 2017 1:00am July 19, 2021 2:07pmStart: 12-21-2017 End: 40-86-4519gqbo 1 puff(s) by inhalation every four to six hours as needed for wheezingAlbuterol Sulfate 90 mcg/actuation Hfa Aerosol Inhaler Discontinued 2 PUFF INHALATION EVERY 4-6 HOURS as needed for Shortness Of Breath Or Wheezing December 21, 2017 12:00am July 19, 2021 1:07pmamitriptyline hydrochloride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 sources)Adverse reaction to cannabis; Translations: [Nausea with vomiting, unspecified]Onset: 446184-66-2879DuwhbuvnHyujsanwqmebx gastroenteritis (20 sources)Gastroenteritis; Translations: [Noninfective gastroenteritis and colitis, unspecified]20-93-3974XbqtwqjqTjchsnjvbpq chest pain (20 sources)Chest pain; Translations: [Chest pain, unspecified]01-06-2023 EpisodicNutritional deficiencies (1 source)Vitamin D deficiency, unspecified; Translations: [Vitamin D deficiency, unspecified]Onset: 02-70-8660FncrhnoBxls wounds of extremities (20 sources)Laceration of left wrist; Translations: [Laceration without foreign body of left wrist, initial encounter]91-74-0978MhcjvydjYquj wounds of head; neck; and trunk (20 sources)Laceration - injury; Translations: [Laceration]33-17-2815Txepceqo Other aftercare (20 sources)Surgical follow-up; Translations: [Encounter for removal of sutures] 94-36-3259GqkfjfnoYfair aftercare (1 source)Removal of sutures done; Translations: [Encounter for removal of sutures]07-95-7776ExmurwatWtytp circulatory disease (3 sources)Orthostatic hypotension; Translations: [Orthostatic hypotension] EpisodicOther complications of (20 sources)Nausea and vomiting; Translations: [Vomiting of , unspecified]Onset: 301866-18-0645AbaarmefDmvsk complications of (5 sources)Vomiting of , unspecified; Translations: [Nausea and vomiting during ]96-65-0836AzhciylxThttg connective tissue disease (14 sources)Muscle pain; Translations: [Myalgia, unspecified site]12-31-2022 EpisodicOther disorders of stomach and duodenum (20 sources)Nonulcer dyspepsia; 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]08-22-2022 EpisodicOther disorders of stomach and duodenum (2 sources)Cannabis hyperemesis syndrome co-occurrent and due to cannabis abuse; Translations: [Cannabis hyperemesis syndrome concurrent with and due to cannabis abuse]67-45-0021GmyqctcnJemzk ear and sense organ disorders (20 sources)Otitis externa; Translations: [Unspecified otitis externa, unspecified ear]00-92-6195KysgkjgCqumq gastrointestinal disorders (20 sources)Diarrhea; Translations: [Diarrhea, unspecified]01-86-1430Tpdsrosa Other infections; including parasitic (20 sources)Personal history of other infectious and parasitic diseases; Translations: [History of 2019 novel coronavirus disease (COVID-19)]10-07-2020 EpisodicOther injuries and conditions due to external causes (20 sources)Minor head injury; Translations: [Unspecified injury of head, initial encounter]01-07-7984DtmvjwcnWyioi liver diseases (1 source)Fatty (change of) liver, not elsewhere classified; Translations: [Fatty (change of) liver, not elsewhere classified]Onset: 64-44-3616ZppuboiOvodb lower respiratory disease (20 sources)Cough; Translations: [Cough]09-88-4596XrmxcozkYfbsk nervous system disorders (20 sources)Acute abdominal pain; Translations: [Other acute postprocedural pain]95-06-9555HgbotmqfQptgx and delivery including normal (20 sources); Translations: [Encounter for supervision of normal , unspecified, unspecified trimester]Onset: EpisodicOther screening for suspected conditions (not mental disorders or infectious disease) (1 source)Imaging result abnormal; Translations: [Abnormal findings on diagnostic imaging of other specified body structures]Onset: 57-40-8415Mldwkla Other skin disorders (4 sources)Follicular disorder, unspecified; Translations: [FOLLICULAR DISORDER UNSPECIFIED]Onset: 77-08-1482JgnxsewyCwzpe upper respiratory disease (20 sources)Bleeding from nose; Translations: [Epistaxis]59-01-2042KpewifjhMlops upper respiratory infections (20 sources)Upper respiratory infection; Translations: [Acute upper respiratory infection, unspecified]83-70-2157RjdbulqkLscpey media and related conditions (20 sources)Otitis media; Translations: [Otitis media, unspecified, unspecified ear]69-57-0406KcihqlcnMicwyvy cyst (20 sources)Cyst of ovary; Translations: [Unspecified ovarian cyst, unspecified side]77-63-1233VupwkcppRsbopwaj; pneumothorax; pulmonary collapse (1 source)Interstitial emphysema of lung; Translations: [Interstitial emphysema] Onset: 24-91-5722NqjmvclrQuuujaaut by other medications and drugs (20 sources)Poisoning by unspecified drugs, medicaments and biological substances, accidental (unintentional), initial encounter; Translations: [Overdose in pediatric patient]73-77-3384SwtxqzhvGcyimlpg codes; unclassified (20 sources)Left against medical advice; Translations: [Procedure and treatment not carried out because of patient's decision for other reasons]05-16-2022 EpisodicResidual codes; unclassified (1 source)Procedure and treatment not carried out because of patient's decision for other reasons; Translations: [PROC AND TX NOT CARRIED OUT PT OTH RSN]Onset: 94-63-0765ZegqbfxjDepwzptr codes; unclassified (3 sources)Nasogastric tube in situ; Translations: [Presence of other specified devices]EpisodicResidual codes; unclassified (3 sources)Insomnia; Translations: [Insomnia, unspecified]EpisodicResidual codes; unclassified (2 sources)Other specified postprocedural statesEpisodicSprains and strains (1 source)Lower back injury; Translations: [Strain of muscle, fascia and tendon of lower back, initial encounter]Onset: 20-51-4540LwltcfimToxnuuemf-related disorders (20 sources)Cannabis hyperemesis syndrome co-occurrent and due to cannabis abuse; Translations: [Cannabis abusewith other cannabis-induced disorder]Onset: 907101-27-1853HtwdnlhBsgyufx and intentional self-inflicted injury (20 sources)Suicidal thoughts; Translations: [Suicidal ideations]06-22-2018 EpisodicSuperficial injury; contusion (20 sources)Abrasion of ear region; Translations: [Abrasion of unspecified ear, initial encounter]Onset: 303042-55-2311EfragmhwAkinnsxzmlnc (1 source)Tachycardia, unspecified / R00.0(ICD-10)Onset: 20-47-2184Kdqymeamwggw (1 source)Cyclical vomiting, not intractable / G43.A0(ICD-10)Onset: 08-24-2017 Unclassified (1 source)Obesity, unspecified / E66.9(ICD-10)Onset: 89-02-9772Cbngwiiabkam (2 sources)Migraine, unsp, not intractable, without status migrainosus / G43.909(ICD-10)Onset: 29-55-8902Sdzeyrsaatyj (1 source)Anxiety disorder, unspecified / F41.9(ICD-10)Onset: 08-25-2017 Unclassified (2 sources)Hematemesis / K92.0(ICD-10)Onset: 91-26-1752Ddqdovepwcgk (1 source)senior care (current) use of non-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-inflam (NSAID) / Z79.1(ICD-10)Onset: 61-15-8216Yehehdfnkgdi (1 source)Cntct w and expsr to environ tobacco smoke (acute) (chronic) / Z77.22(ICD-10)Onset: 37-01-7043Bwemvsxmqqyx (1 source)Epistaxis / R04.0(ICD-10)Onset: 94-49-5959Frdinmfqdzte (1 source)BMI pediatric, greater than or equal to 95% for age / Z68.54(ICD-10) Onset: 10-65-6519Kontbgnpozuw (1 source)Vitamin D deficiency, unspecified / E55.9(ICD-10)Onset: 08-25-2017 Unclassified (1 source)Unspecified abdominal pain / R10.9(ICD-10)Onset: 08-25-2017 Unclassified (1 source)Dorsalgia, unspecified / M54.9(ICD-10)Onset: 01-71-0197Ppepduhpwzva (1 source)Fatty (change of) liver, not elsewhere classified / K76.0(ICD-10) Onset: 93-38-0893Zebplzusuruv (1 source)Vomiting, unspecified / R11.10(ICD-10)Onset: 62-36-3373Cujgrffltjzr (1 source)Other specified cardiac arrhythmias / I49.8(ICD-10)Onset: 08-24-2017 Unclassified (1 source)CONTACT W/AND (SUSP) EXPOS COVID-19; Translations: [CONTACT W/AND (SUSP) EXPOS COVID-19]Onset: 08-28-1661Snayt infection (20 sources)Viral disease; Translations: [Viral infection, unspecified] 44-91-3938Jgbiazjv Past or Other Problems Problem ClassificationProblemDateDocumented DateEpisodic/ChronicSpondylosis; intervertebral disc disorders; other back problems (1 source)Dorsalgia, unspecified; Translations: [Dorsalgia, unspecified]Onset: 03-77-7079RexnxyxkPvuuetjlujxo (1 source)Vomiting, unspecified; Translations: [Vomiting, unspecified]Onset: 83-03-1956Lfaefirleqxd (1 source)Tachycardia, unspecified; Translations: [Tachycardia, unspecified] Onset: 37-68-3545Lrngdjj tract infections (20 sources)Urinary tract infectious disease; Translations: [Urinary tract infection, site not specified]Onset: 735495-22-9753Jkfebubd Results Test NameValueInterpretationReference RangeFacilityAmphetamine Screen Ql (U) Ordered By: Kelsey Espino on 62-63-7938Avencmylgfkg Ql (U)NegativeNegative Veterans Health AdministrationBarbiturates [Presence] in Urine by Screen methodOrdered By: Kelsey Espino on 28-81-1179Tufcddewfioq Screen Ql (U)Negative NegativeVeterans Health AdministrationBenzodiazepines Screen Ql (U)Ordered By: Kelsey Espino on 35-63-2575Daxqyrcyinheaer Ql (U)NegativeNegativeVeterans Health AdministrationBenzoylecgonine [Presence] in Urine by Screen method Ordered By: Kelsey Espino on 54-29-7965Hapbyvulipbxdsm Screen Ql (U)Negative NegativeVeterans Health AdministrationChlamydia/GC/Trich NAAon 08-28-2025 Chlamydia Trachomotis, NAANegativeNormalNegativeThe [facility] Comment on above:Order Comment: Reason for Exam Encounter for supervision of other normal , unspeci Specimen Comment: A duplicate report has been generated due to demographic Specimen Comment: updates.Performed By: #### PAP [id number], GCCHLAMTRI #### [facility] , #### OBUDS #### [facility] [address] [id number] USANeisseria Gonorrhoeae, NAANegativeNormalNegativeThe [facility] Physician GroupComment on above:Order Comment: Reason for Exam Encounter for supervision of other normal , unspeci Specimen Comment: A duplicate report has been generated due to demographic Specimen Comment: updates.Performed By: #### PAP [id number], GCCHLAMTRI #### [facility] , #### OBUDS #### [facility] [address] [place] [address] USATrichomonas NAANegativeNormalNegativeThe [facility] Physician GroupComment on above:Order Comment: Reason for Exam Encounter for supervision of other normal , unspeci Specimen Comment: A duplicate report has been generated due to demographic Specimen Comment: updates.Result Comment: Performed at: =[address], [place], [place] [id number] Snow Maker: Viv Birmingham MD, Phone: [phone] PERFORMED BY: [facility] [address] [place] [address] PATHOLOGIST AIRPORT UTILITY WORKER FRAN NUNEZ M.D.Performed By: #### PAP [id number], GCCHLAMTRI #### [facility] , #### OBUDS #### [place] [address] USAIGP,Aptima HPV,CtNg Age Gdlnon 58-10-4308YDS, Age GdlnNote Normal.The [facility] Physician GroupComment on above:Order Comment: Reason for Exam Encounter for supervision of other normal , unspeci Specimen Comment: [id number] Comment: TESTS RESULT FLAG UNITS REF RANGE LAB Clinician Provided Cytology Information No. of containers..01 ThinPrep Vial Age Algo ACOG Geeta... -20 12 FLAG LEGEND: L-Low Normal,H-High Normal,LL-Alert Low,HH-Alert High <-Panic Low,>-Panic High,A-Abnormal,AA-Critical Abnormal Performed at: 01 =G [facility] [place] [address] [facility] [place] [address] Viv Birmingham MD, Qqcxjyyrj By: #### PAP [id number], GCCHLAMTRI #### [facility] , #### OBUDS #### [place] [address] USAPAP Chlamydia NAANegativeNormalNegativeThe [facility] Physician GroupComment on above:Order Comment: Reason for Exam Encounter for supervision of other normal , unspeci Specimen Comment: [id number] By: #### PAP [id number], GCCHLAMTRI #### [facility] , #### OBUDS #### [place] [address] USAPAP GonococcusNegativeNormalNegativeThe [facility] Physician GroupComment on above:Order Comment: Reason for Exam Encounter for supervision of other normal , unspeci Specimen Comment: [id number] Comment: Performed at: = - [facility] [address] [id number] Snow Maker: Viv Birmingham MD, Phone: [phone] Performed at: - [facility] [address] [id number] Snow Maker: Viv Birmingham MD, Phone: [phone] PERFORMED BY: [place] [address] PATHOLOGIST AIRPORT UTILITY WORKER FRAN NUNEZ M.D.Performed By: #### PAP [id number], GCCHLAMTRI #### [facility] , #### OBUDS #### [place] [address] USAPap IGNoteNormal.The [facility] Physician GroupComment on above:Order Comment: Reason for Exam Encounter for supervision of other normal , unspeci Specimen Comment: [id number] Comment: TESTS RESULT FLAG UNITS REF RANGE LAB DIAGNOSIS: 02 NEGATIVE FOR INTRAEPITHELIAL LESION OR MALIGNANCY. Specimen adequacy: 02 Satisfactory for evaluation. No endocervical component is identified. Performed by: 02 Queta Lofton, Supervisory Lean Leader (ASC) . 02 Note: Note 02 The [...] <-Panic Low,>-Panic High,A-Abnormal,AA-Critical Abnormal Performed at: [address] [address] Viv Birmingham MD, Gxwyktqjk By: #### PAP [id number], GCCHLAMTRI #### [facility] , #### OBUDS #### [facility] [address] [id number] USAOB Urine Drug Screen (NO THC)on 31-64-3652Mlekdrdhcxi Screen,UrineNegativeNormalNegativeThe [facility] Physician GroupComment on above: Order Comment: Reason for Exam Encounter for supervision of other normal , unspeciPerformed By: #### PAP [id number], GCCHLAMTRI #### [facility] , #### OBUDS #### [facility] [address] [place] [address] USABarbiturate Screen,UrineNegativeNormalNegativeThe [facility] Physician GroupComment on above:Order Comment: Reason for Exam Encounter for supervision of other normal , unspeciPerformed By: #### PAP [id number], GCCHLAMTRI #### [facility] , #### OBUDS #### [facility] [address] [place] [address] USABenzodiazepines Screen,UrineNegativeNormalNegativeThe [facility] Physician GroupComment on above:Order Comment: Reason for Exam Encounter for supervision of other normal , unspeciPerformed By: #### PAP [id number], GCCHLAMTRI #### [facility] , #### OBUDS #### [facility] [address] [place] [address] USACocaine Screen,UrineNegativeNormalNegativeThe [facility] Physician GroupComment on above:Order Comment: Reason for Exam Encounter for supervision of other normal , unspeciPerformed By: #### PAP [id number], GCCHLAMTRI #### [facility] , #### OBUDS #### [place] [address] USAOpiate Screen,UrineNegativeNormalNegativeHca Florida St. [facility] Physician GroupComment on above:Order Comment: Reason for Exam Encounter for supervision of other normal , unspeciPerformed By: #### PAP [id number], GCCHLAMTRI #### [facility] , #### OBUDS #### [facility] [address] [place] [address] USAPhencyclidine Screen, UrineNegativeNormalNegativeThe [facility] Physician GroupComment on above:Order Comment: Reason for Exam Encounter for supervision of other normal , unspeciResult Comment: These are unconfirmed results and should not be used for legal purposes. Drug Cut-Off Concentration: AMPH 1000 ng/mL NIKOLAS 200 ng/mL SHRAVAN 200 ng/mL COCM 300 ng/mL OP 300 ng/mL PCP 25 ng/mL PERFORMED BY: [place] [address] PATHOLOGIST AIRPORT UTILITY WORKER FRAN NUNEZ M.D.Performed By: #### PAP [id number], NONIHLAMTRI #### [facility] , #### OBUDS #### [address] [place] [id number] USAOpiates [Presence] in Urine by Screen methodOrdered By: Kelsey Espino on 20-23-3388Prljncu Screen Ql (U)NegativeNegLima City HospitalPhencyclidine Screen Ql (U)Ordered By: Kelsey Espino on 70-81-4304Udwoatekuerpt Ql (U)NegativeNegLima City Hospital Comment on above:These are unconfirmed results and should not be used for legal purposes. Drug Cut-Off Concentration: AMPH 1000 ng/mL NIKOLAS 200 ng/mL SHRAVAN 200 ng/mL COCM 300 ng/mL OP 300 ng/mL PCP 25 ng/mLUrine Cultureon 70-52-6420Fikmcawi identified Cx Nom (U)25,000 colonies/ml mixed bacterial skin contaminants 2 Days PERFORMED BY: [place] [address] PATHOLOGIST AIRPORT UTILITY WORKER FRAN NUNEZ M.D.NormalThe [facility] Physician GroupComment on above: Performed By: #### PAP [id number], NONIHLAMTRI #### [facility] , #### OBUDS #### [facility] [address] [place], [place] [address] USAC Urineon 12-62-0891Uclpjeym identified Cx Nom (U) Microbiology PROCEDURE: Urine Culture [R1] SOURCE: U CleanCatch BODY SITE: COLLECTED DATE/TIME: 08/22/2025 19:48 EDT RECEIVED DATE/TIME: 08/22/2025 20:18 EDT START DATE/TIME: 08/22/2025 20:18 EDT FREE TEXT SOURCE: Sunday Johnson PA-C. Elizabeth LOVE, Sunday Abdi. FINAL REPORTS Final Report [] Verified Date/Time: 08/24/2025 10:07 EDT 3,000 cfu/ml Mixed skin contaminants Performing Locations R1: This test was performed at: [facility], [address] [place] [address], [address] , [place], ShizbrVwlivlThe Surgical Hospital at SouthwoodsComment on above:Performed By: #### [id number] #### [facility] [address] [place] [address]JS 1st Trimesteron 81-61-1071AO 1st TrimesterExam Date/Time: 08/22/2025 21:20 EDT Reason [...] Mahamed Quispe MD Transcribed by: KIRA Technologist: OdalismimiKnox Community HospitalBMPon 30-10-1139Utlhh gap [Moles/Vol]14 mmol/LNormal6-16[facility] Comment on above:Performed By: #### [id number] #### [facility] [address] [place], [place] [address]MWR/Creat Ratio30 No TgovaCevr58-60GloxpsKnox Community Hospital Comment on above:Performed By: #### [id number] #### [facility] [address] [place], [place] [address]Mbpdgyj [Mass/Vol]10.3 mg/dLNormal8.9-11.1FSalem Regional Medical CenterComment on above:Performed By: #### [id number] #### [facility] [address] [place], [place] [address]Uvurbrvb [Moles/Vol]97 mmol/MUwg666-947WhusffKnox Community HospitalComment on above:Performed By: #### [id number] #### [facility] [address] [place], [place] [address]YW7 [Moles/Vol]27 mmol/ETypuks49-73OdvonjKnox Community Hospital Comment on above:Performed By: #### [id number] #### [facility] [address] [place], [place] [address]Hufmnbjsie [Mass/Vol]0.9 mg/dLNormal0.5-1.3FSalem Regional Medical CenterComment on above:Performed By: #### [id number] #### [facility] [address] [place], [place] [address]Fyunkwc [Mass/Vol]106 mg/iBNgxpuc81-535JypmrqKnox Community HospitalComment on above:Performed By: #### [id number] #### [facility] [address] [place], [place] [address]Exsbmvrew [Moles/Vol]3.3 mmol/LLow3.5-5.3FSalem Regional Medical CenterComment on above:Performed By: #### [id number] #### Saeed [facility] [address], [place] [address]Xbjwcr [Moles/Vol]135 mmol/MIloyti132-697YwkcrqKnox Community HospitalComment on above:Performed By: #### [id number] #### Saeed [facility] [address] [place], [place] [address]Wxoy nitrogen [Mass/Vol]27 mg/dLHigh5-21Knox Community HospitalComment on above:Performed By: #### [id number] #### [facility]aeed [facility] [address] [place] [address]HjIN Quanton 43-34-8462Yauj hCG Odk8996 mIU/mLHigh1-3FSalem Regional Medical CenterComment on above:Result Comment: 'F NON < 1 - 3' ' 0.2 - 1 WEEK = 5 TO 50' ' 1 - 2 WEEKS = 50 - 500' ' 2 - 3 WEEKS = 100 - 5000' ' 3 - 4 WEEKS = 500 - 99547' ' 4 - 5 WEEKS = 1000 - 79672' ' 5 - 6 WEEKS = 20798 - 218545' ' 6 - 8 WEEKS = 04842 - 970199' ' 8 - 12 WEEKS = 89065 - 853263'Performed By: #### [id number] #### [facility] [address] [place], [place] [address]ZRN w/ Auto Diffon 35-92-4592Kjvpdmkh Absolute0.1 E9/LNormal 0.0-0.2FSalem Regional Medical CenterComment on above:Performed By: #### [id number] #### Saeed [facility] [address] [place], [place] [address]Ycezpuyoy/100 WBC (Bld)0.8 %Normal0.0-2.0Knox Community HospitalComment on above:Performed By: #### [id number] #### Saeed [facility] [address] [place], [place] [address]Gco Absolute0.0 E9/LNormal0.0-0.5FSalem Regional Medical Center Comment on above:Performed By: #### [id number] #### Saeed [facility] [address] [place], [place] [address]Npgtxoyzccx/100 WBC (Bld)0.1 %Normal0.0-8.0Knox Community HospitalComment on above:Performed By: #### [id number] #### [facility] [address] [place], [place] [address]Tyvfuujwbkz distribution width (RBC) [Ratio]14.0 %Normal 10.9-14.2FSalem Regional Medical CenterComment on above:Performed By: #### [id number] #### [facility] [address] [place] [address]Lugfhboyqv (Bld) [Volume fraction]44.8 %Hfmxva23.0-46.0Kn[facility] Community HospitalComment on above:Performed By: #### [id number] #### [facility] [address] [place] [address]Tbbflmbevr (Bld) [Mass/Vol]15.6 g/wIAjlixo59.0-16.0Kn[facility] HospitalComment on above:Performed By: #### [id number] #### [facility] [address] [place] [address]Wxfgo Absolute1.4 E9/LNormal1.0-4.0[facility] Comment on above:Performed By: #### [id number] #### [facility] [address] [place] [address]Htqvtzymiab/100 WBC (Bld)8.2 %Low14.0-50.0Kn[facility] Community HospitalComment on above:Performed By: #### [id number] #### [facility]aeed [facility] [address] [place] [address]QVX (RBC) [Entitic mass]30.1 ijEkiwbq07.0-34.0Kn[facility] HospitalComment on above:Performed By: #### [id number] #### Saeed [facility] [address] [place], [place] [address]YMUL (RBC) [Mass/Vol]34.8 g/mRUjidwu29.4-36.0Kn[facility] Community HospitalComment on above:Performed By: #### [id number] #### Saeed [facility] [address] [place], [place] [address]JBF (RBC) [Entitic vol]86.4 bSKtvhks50.0-100.0Kn[facility] HospitalComment on above:Performed By: #### [id number] #### [facility]aeed [facility] [address] [place] [address]Slds Absolute0.9 E9/LNormal0.2-1.0[facility] Comment on above:Performed By: #### [id number] #### [facility]ed [facility] [address] [place] [address]Xwkxsxrub/100 WBC (Bld)5.4 %Normal4.0-14.0Kn[facility] HospitalComment on above:Performed By: #### [id number] #### [facility]ed [facility] [address] [place], [place] [address]Ztudqb Paxivjqn78.1 E9/LHigh2.0-7.5FSalem Regional Medical Center Comment on above:Performed By: #### [id number] #### [facility]aeed [facility] [address] [place], [place] [address]Vmykpw Auto85.5 %High36.0-75.0[facility] Comment on above:Performed By: #### [id number] #### [facility]aeed [facility] [address] [place], [place] [address]Iqmdwmmy848.0 E9/KIbkgdy795.0-500.0[facility] Comment on above:Performed By: #### [id number] #### Christophe [facility] [address] [place], [place] [address]Iqtcvqlq mean volume (Bld) [Entitic vol]8.0 fLNormal6.4-10.8 [facility] HospitalComment on above:Performed By: #### [id number] #### [facility] [address] [place] [address]PYG8.2 E12/LNormal4.3-5.9Kn[facility] HospitalComment on above:Performed By: #### [id number] #### [facility] [address] [place] [address]GXD12.5 E9/LHigh4.0-11.0Kn[facility] HospitalComment on above:Performed By: #### [id number] #### [facility] [address] [place] [address]YI Clinical Summaryon [id number] Clinical SummaryED Clinical Summary [address] [address] ED Clinical Summary Person Information Name: PILI PARIKH/[facility] Age: 20 Years : 2005 Sex: Female Language: Kenyan PCP: MODESTA CHAND CNP Marital Status: Single [...] 21:56:29 08/22/2025 21:56:29 ADDRESS: [address] [facility] [id number] PHYS DOC NOTES: MEDICAL INFORMATION: Prescriptions Given: Medications to Continue Taking That Have Changed [id number], [address], [place] [id number], [phone] START: ondansetron (Zofran ODT 4 mg Tab-Dis) [...] Vomiting, Adult Follow up: With: Address: When: [facility] [phone] In 3 days 08/25/2025 Comments: Follow-up with Kelsey cuadra ENVIRONMENTAL SERVICES WORKER at [facility]. Use nausea medications as prescribed. Eat multiple small meals a day. Increase your fluid intake. With: Address: When: MODESTA CHAND [address] [place] SANDUSK (more content not included)... NormalFisher Anthony Medical CenterED Note-Nursingon 30-37-9023XY Note-NursingED Note-Nursing pt requesting to leave ama. pt states she does not want to keep waiting and just wants to go home. pt made aware of risks of leaving by millicent sanchez and Dr. guthrie. pt still requesting to leave ama. pt informed of when to come back and pt verbalized understanding. ama form signed prior to pt leaving.[facility] CenterED Note-Physicianon 42-50-5729YB Note-PhysicianED Note-Physician Basic Information Time Seen: Sunday [...] Zofran and ODT as well as Phenergan SD were prescribed. The patient still wanted to leave AGAINST MEDICAL ADVICE. Discussed with her that she may return atany time to continue her care. She will follow-up with her ENVIRONMENTAL SERVICES WORKER at [facility]. Returnprecautions were discussed. All questions were [...] PRN Nausea/Vomiting, # 30 tab(s), Refills(s) 0, [id number] 157, cm, 08/22/25 17:08:00 EDT, Height/Length Dosing, 95, kg, 08/22/25 17:08:00EDT, Weight Dosing promethazine, 25 mg = 1 supp, Rectal, q6hr, PRN Nausea/Vomiting, # 16 EA, Refills(s) 0, [id number], 157, cm, 08/22/25 17:08:00 EDT, Height/Length Dosing, 95, kg, 08/22/25 17:08:00 EDT, Weight Dosing promethazine, 25 mg = 1 supp, Supp, Rectal, Once, Stop date 08/22/25 20:02:00 EDT, STAT, Start date08/22/25 20:02:00 EDT, 08/22/25 20:02:00 EDT Urinary Catheter Insertion Medications Admini (more content not included)...[facility] Medical CenterComment on above:Result Comment: Electronically Signed By: Sunday Johnson PA-C\.br\Date and Time Signed: 08/22/2519:13 EDT\.br\Electronically Co- Signed By: Pradeep Guthrie DO\.br\Date and Time Co-Signed: 08/22/2521:55 EDTED Patient Summaryon [id number] Patient SummaryED Patient Summary [address] [address] Patient Discharge Instructions Person Information Name: PILI PARIKH Age: 20 Years Arrival Date: 08/22/2025 17:04:27 Discharge Diagnosis: 1:Abdominal pain; 2:Nausea & vomiting; 3:; Hyperemesis gravidarum;Left against medical advice Primary Care Physician: MODESTA CHAND CNP Provider Information Primary Provider: Federico Randolph DO Advanced Excel Expert:Elizabeth LOVE, Sunday Abdi. The exam and treatment you received in the Emergency Department were for an urgent problem and are not intended as complete care. It is important that you follow up with a doctor, nurse practitioner,or physician???s acute care certified nursing assistant for ongoing care. If your symptoms become worse or you do not improve asexpected and you are unable to reach your usual health care provider, you should return to the Emergency Department. We are available 24 hours a day. JLPILI TERRY has been given the following list of patient education materials, prescriptions andfollow-up instructions: Follow-up Instructions: With: Address: When: [facility] [phone] In 3 days 08/25/2025 Comments: Follow-up with Kelsey your ENVIRONMENTAL SERVICES WORKER at [facility]. Use nausea medications as prescribed. Eat multiple small meals a day. Increase your fluid intake. With: Address: When: MODESTA CHAND [facility] [address] [phone] [facility] (1) In 3 days 08/25/2025 [...] opioids can be used to help relieve bjiipnen-ar-bursnd pain and are often prescribed following a [...] more often than prescribed. (more content not included)...NormalKn[facility] Community HospitalHep [facility] Panelon 91-81-9789Bfoovlo [Mass/Vol]5.2 g/dLHigh3.3-5.0[facility] Comment on above:Performed By: #### [id number] #### [facility] [address], [place] [address]Rphgchb/Globulin [Mass ratio]1.4 {ratio}Normal1.1-2.2FSalem Regional Medical CenterComment on above:Performed By: #### [id number] #### [facility] [address], [place] [address]Mhw Phos71 Int._Unit/XCmiflu75-97OpsybgKn[facility] Community Hospital Comment on above:Performed By: #### [id number] #### [facility] [address], [place] [address]SWX71 Int._Unit/LNormal6-46[facility] HospitalComment on above:Performed By: #### [id number] #### [facility] [address], [place] [address]IXF04 Int._Unit/LNormal5-43[facility] HospitalComment on above:Performed By: #### [id number] #### [facility] [address], [place] [address]Vsim Direct0.2 mg/dLNormal0.0-0.4FSalem Regional Medical Center Comment on above:Performed By: #### [id number] #### [facility] [address], [place] [address]Umvp Indirect0.5 mg/dLNormal0.1-0.9[facility] Comment on above:Performed By: #### [id number] #### [facility] [address], [place] [address]Kvlj Total0.7 mg/dLNormal0.0-1.1FSalem Regional Medical Center Comment on above:Performed By: #### [id number] #### [facility] [address], [place] [address]Knbiqrmj (S) [Mass/Vol]3.8 g/dLNormal1.4-4.0Kn[facility] HospitalComment on above:Performed By: #### [id number] #### [facility] [address], [place] [address]Gcdlpvj [Mass/Vol]9.0 g/dLHigh6.0-7.8[facility] HospitalComment on above:Performed By: #### [id number] #### [facility] [address], [place] [address]Nnfmpb Levelon 66-06-0860Szxfhq Lvl21 unit/KRzcmyg04-74AzhowtKnox Community HospitalComment on above:Performed By: #### [id number] #### [facility] [address], [place] [address]CP with Cult Rflxon 90-69-9715Hfmuv (U)YellowNormalYellowKnox Community HospitalComment on above:Order Comment: Added by Discern Expert Result Comment: Microscopic readings are only performed on those samples that meet specific criteria set forth by [facility]. Performed By: #### [id number] #### [facility] [address], [place] [address]Ouoguog (U) [Mass/Vol]NegativeNormalNegativeKnox Community HospitalComment on above:Order Comment: Added by Husam ExpertPerformed By: #### [id number] #### [facility] [address], [place] [address]Dagfrge Ql (U)3+ mg/dLAbnormalNegCleveland Clinic Fairview HospitalComment on above:Order Comment: Added by Husam ExpertPerformed By: #### [id number] #### [facility] [address], [place] [address]AT BloodNegativeNormalNegCleveland Clinic Fairview Hospital Comment on above:Order Comment: Added by Husam ExpertPerformed By: #### [id number] #### [facility] [address], [place] [address]UZ BacteriaTraceNormalTraceKnox Community HospitalComment on above:Order Comment: Added by Husam ExpertPerformed By: #### [id number] #### [facility] [address], [place] [address]DK ClarityTurbidAbnormalClearFSalem Regional Medical CenterComment on above:Order Comment: Added by Discern ExpertPerformed By: #### [id number] #### Christophe [facility] [address], [place] [address]CQ Hyal Cvhr7-7Rtyhiw9-9YaxywxSalem Regional Medical CenterComment on above:Order Comment: Added by Discern ExpertPerformed By: #### [id number] #### [facility] [address], [place] [address]AX Leuk Est75 Lesli/uLAbnormalNegativeKnox Community Hospital Comment on above:Order Comment: Added by Husam ExpertPerformed By: #### [id number] #### [facility] [address] [place] [address]SP MucousTraceNormalNegCleveland Clinic Fairview HospitalComment on above:Order Comment: Added by Husam ExpertPerformed By: #### [id number] #### [facility] [address] [place] [address]VZ NitriteNegativeNormalNegCleveland Clinic Fairview Hospital Comment on above:Order Comment: Added by Husam ExpertPerformed By: #### [id number] #### [facility] [address] [place] [address]VG pH6.5Invalid Interpretation Code5.0-9.0Kn[facility] HospitalComment on above:Order Comment: Added by Husam ExpertPerformed By: #### [id number] #### [facility] [address], [place] [address]VU Protein1+ mg/dLAbnormalNegCleveland Clinic Fairview Hospital Comment on above:Order Comment: Added by Husam ExpertPerformed By: #### [id number] #### [facility] [address] [place] [address]MS INR3-86Admobblp3-1OufriySalem Regional Medical CenterComment on above:Order Comment: Added by Husam ExpertPerformed By: #### [id number] #### [facility] [address], [place] [address]HK Spec Grav1.038Invalid Interpretation Code1.005-1.030Kn[facility] HospitalComment on above:Order Comment: Added by Discern Expert Performed By: #### [id number] #### [facility] [address], [place] [address]DX Squam Epithelial>10Invalid Interpretation CodeKnox Community HospitalComment on above:Order Comment: Added by Discern ExpertPerformed By: #### [id number] #### [facility] [address], [place] [address]VZ UrobilinogenNegativeNormalNegativeKnox Community HospitalComment on above:Order Comment: Added by Discern ExpertPerformed By: #### [id number] #### [facility] [address], [place] [address]MD XTF2-54Mxsphosx5-9VmybrjSalem Regional Medical CenterComment on above:Order Comment: Added by Discern ExpertPerformed By: #### [id number] #### [facility] [address], [place] [address]Kzozjmbdopeh (U) [Mass/Vol]NegativeNormalNegativeKnox Community HospitalComment on above:Order Comment: Added by Discern ExpertPerformed By: #### [id number] #### [facility] [address], [place] [address]OQ with Cult Rflx SPon 44-86-4775EM Spec DescClean CatchNormal [facility] HospitalComment on above:Performed By: #### [id number] #### [facility] [address], [place] [address]iHPKbr 62-61-8663gQNF85 mL/min/1.73 s3Jtogxe>=59Kn[facility] HospitalComment on above:Performed By: #### [id number] #### [facility] [address], [place] [address]Oanoq Cultureon 74-21-2989Xfvppkdv identified Cx Nom (U) >100,000 colonies/ml mixed bacterial skin contaminants 2 Days PERFORMED BY: [place] [address] PATHOLOGIST AIRPORT UTILITY WORKER FRAN NUNEZ M.D.[facility] Physician GroupComment on above: Performed By: #### PAP [id number], [id number] #### [facility] , #### OBUDS #### [place] [address] USAUrine Cultureon 66-05-7561Gyckiwhw identified Cx Nom (U) <9,000 colonies/ml mixed bacterial skin contaminants 2 Days PERFORMED BY: [place] [address] PATHOLOGIST AIRPORT UTILITY WORKER FRAN NUNEZ M.D.[facility] Physician GroupComment on above: Performed By: #### CUU #### [place] [address] USAUrine cultureOrdered By: Jasmeet Dahl on 09-78-8057Hunitzse identified Cx Nom (U)Urine cultureVeterans Health AdministrationUrine Cultureon 50-52-5406Meeoqpco identified Cx Nom (U)>100,000 colonies/ml mixed bacterial skin contaminants 2 Days PERFORMED BY: [place] [address] PATHOLOGIST AIRPORT UTILITY WORKER IDANIA GODOY M.D.[facility] Physician GroupComment on above: Performed By: #### CUU #### [place] [id number] USACT Abdomen/Pelvis w/ Contraston 18-42-7828JZ Abdomen/Pelvis w/ ContrastExam Date/Time: 01/16/2025 18:35 EST [...] Dolan MD Transcribed by: KIRA Technologist: [facility] Chest w/ Contraston [id number] Chest w/ ContrastExam Date/Time: 01/16/2025 18:35 EST [...] Anselmo Dolan MD Transcribed by: KIRA Technologist: [facility] CenterCT Head or Brain w/o Contraston [id number] Head or Brain w/o ContrastExam Date/Time: 01/16/2025 [...] Anselmo Dolan MD Transcribed by: KIRA Technologist: [facility] CenterCT Spine Cervical w/o Contraston 78-94-8485ES Spine Cervical w/o ContrastExam Date/Time: 01/16/2025 18:31 [...] Anselmo Dolan MD Transcribed by: KIRA Technologist: [facility] CenterED Note-Physicianon 52-81-5080JN Note-PhysicianED Note-Physician Basic Information Time Seen: Rashaad [...] and Complexity of Problems Differential Diagnosis: [] [facility] Data External documents reviewed: [] My [...] day(s), # 21 tab(s), Refills(s) 0, Pharmacy: [facility]/pharmacy #[id number], 157, cm, 01/16/25 17:56:00 EST, [...] food, # 20 tab(s), Refills(s) 0, Pharmacy: [facility]/pharmacy #[id number], 157, cm, 01/16/25 17:56:00 EST, Height/Length Dosing, 95, kg, 01/16/25 17:56:00 EST, Weight Dosing promethazine, 12.5 mg = 0.5 tab(s), Tab, Oral, Once, Stop date 01/16/25 19:41:00 EST, STAT, Start date 01/16/25 19:41:00 EST, 01/16/25 19:41:00 EST promethazine, 12.5 mg = 1 tab(s), Oral, q6hr, PRN for nausea/vomiting, # 10 tab(s), Refills(s) 0, Pharmacy: [facility]/pharmacy #[id number], 157, cm, 01/16/25 17:56:00 EST, Height/Length Dosing, 95, kg, 01/16/25 17:56:00 EST, Weight Dosing ABO/Rh ABO/Rh History Check Antibody Screen Basic Metabolic Panel Beta hCG Qual Blood Bank ID# CBC w/ Auto Diff CT Abdomen/Pelvis w/ Contrast CT Chest w/ Contrast CT Head or Brain w/o Cont (more content not included)...[facility] Medical CenterComment on above:Result Comment: Electronically Signed By: Rashaad Albrecht PA-C\.br\Date and Time Signed: 01/16/2522:30 EST\.br\Electronically Co-Signed By: August Bermudez M.D.\.br\Date and Time Co-Signed: 01/17/25 08:51 ESTXR Knee Complete 4+ Views Lefton 13-29-5408JT Knee Complete 4+ Views LeftExam Date/Time: 01/16/2025 [...] Carlos Araya DO Transcribed by: KIRA Technologist: [facility] HospitalXR Knee Complete 4+ Views Righton 02-77-5523FX Knee Complete 4+ Views RightExam Date/Time: 01/16/2025 [...] Carlos Araya DO Transcribed by: KIRA Technologist: AMDUniversity Hospitals Elyria Medical CenterABO/Rhon 43-28-0370YWW/RhPositiveInvalid Interpretation [facility] Comment on above:Performed By: #### [id number] #### [facility] [address], [place] [address]YFP/Rh History Checkon 70-30-2089NXU/Rh History CheckVerified Hx Blood TypeNoThe Surgical Hospital at SouthwoodsComment on above:Performed By: #### [id number] #### [facility] [address], [place] [address]THISgo 18-72-5263TYYW Gel InterpNegativeUniversity Hospitals Elyria Medical CenterComment on above:Performed By: #### [id number] #### [facility] [address], [place] [address]I hCG Qualon 66-63-4857Pvvj HCG ( test) QlNegative [facility] Medical CenterComment on above:Performed By: #### [id number] #### [facility] [address], [place] [address]MCGRC BANKOrdered By: Virginia Mccain on 44-88-1580RBY/Rh Interp PositiveInvalid Interpretation [facility] BB SubsectionABSC Gel InterpNegative (01/16/25 7:26 PM)NormalCEDAR RIDGE [facility]OSPITAL – [place] BB SubsectionBMPon 45-62-0008Figzp gap [Moles/Vol]20 mmol/LHigh6-16Kn[facility] HospitalComment on above:Performed By: #### [id number] #### [facility] [address], [place] [address]Eoatbck [Mass/Vol]10.9 mg/dLNormal8.9-11.1FSalem Regional Medical CenterComment on above:Performed By: #### [id number] #### Saeed [facility] [address], [place] [address]Mfmhgwpz [Moles/Vol]101 mmol/WSnqbaq502-284BxkjhuKnox Community HospitalComment on above:Performed By: #### [id number] #### [facility] [address], [place] [address]UG6 [Moles/Vol]22 mmol/YXfgjer70-65YklwdeKnox Community Hospital Comment on above:Performed By: #### [id number] #### [facility] [address], [place] [address]Bzhavvtrvj [Mass/Vol]0.9 mg/dLNormal0.5-1.3FSalem Regional Medical CenterComment on above:Performed By: #### [id number] #### [facility] [address], [place] [address]Qlkzrcn [Mass/Vol]116 mg/cCHblhvn42-115LwpsluKnox Community HospitalComment on above:Performed By: #### [id number] #### [facility] [address], [place] [address]Zjfipyifj [Moles/Vol]3.3 mmol/LLow3.5-5.3FSalem Regional Medical CenterComment on above:Performed By: #### [id number] #### [facility] [address], [place] [address]Ywhsxx [Moles/Vol]140 mmol/UAcviik806-890YcdvqgKnox Community HospitalComment on above:Performed By: #### [id number] #### [facility] [address], [place] [address]Axhh nitrogen [Mass/Vol]23 mg/dLHigh5-21Kn[facility] HospitalComment on above:Performed By: #### [id number] #### [facility] [address], [place] [address]Zedt nitrogen/Creatinine [Mass ratio]26 No VlafjTskj99-80TsazfzKnox Community HospitalComment on above:Performed By: #### [id number] #### [facility] [address], [place] [address]Ammsd Bank ID#on [id number]#[id number] Interpretation CodeKnox Community HospitalComment on above:Performed By: #### [id number] #### [facility] [address], [place] [address]YNT w/ Auto Diffon 44-81-8330Qjvyuwnes/100 WBC (Bld)0.3 %Normal 0.0-2.0[facility] HospitalComment on above:Performed By: #### [id number] #### [facility] [address] [place] [address]Hyjwsbsuc/Leukocytes Auto (Bld) [Pure # fraction]0.0 E9/LNormal 0.0-0.2FSalem Regional Medical CenterComment on above:Performed By: #### [id number] #### [facility] [address] [place] [address]Yyzpfexhnwy (Bld) [#/Vol]0.0 E9/LNormal0.0-0.5FSalem Regional Medical CenterComment on above:Performed By: #### [id number] #### [facility] [address], [place] [address]Sjhsbgzvtty/100 WBC (Bld)0.0 %Normal0.0-8.0[facility] HospitalComment on above:Performed By: #### [id number] #### [facility] [address], [place] [address]Ndbpjxlnaqi distribution width (RBC) [Ratio]13.7 %Normal 10.9-14.2FSalem Regional Medical CenterComment on above:Performed By: #### [id number] #### Saeed [facility] [address] [place] [address]Dpjhgzpmre (Bld) [Volume fraction]46.9 %High34.0-46.0Kn[facility] HospitalComment on above:Performed By: #### [id number] #### [facility] [address] [place] [address]Lgfzvfriku (Bld) [Mass/Vol]16.0 g/qJThfrah67.0-16.0[facility] HospitalComment on above:Performed By: #### [id number] #### [facility] [address] [place] [address]Ytoezloznfm (Bld) [#/Vol]1.4 E9/LNormal1.0-4.0[facility] HospitalComment on above:Performed By: #### [id number] #### [facility] [address] [place] [address]Pththfwqiwr/100 WBC (Bld)11.6 %Low14.0-50.0Kn[facility] HospitalComment on above:Performed By: #### [id number] #### [facility] [address] [place] [address]BRR (RBC) [Entitic mass]28.8 jvIcqizx67.0-34.0Kn[facility] HospitalComment on above:Performed By: #### [id number] #### [facility] [address] [place] [address]DDFC (RBC) [Mass/Vol]34.1 g/mQUniwxj95.4-36.0[facility] HospitalComment on above:Performed By: #### [id number] #### [facility] [address] [place] [address]ETZ (RBC) [Entitic vol]84.3 eEUrtuuc33.0-100.0Kn[facility] HospitalComment on above:Performed By: #### [id number] #### [facility] [address] [place] [address]Psjauyszw (Bld) [#/Vol]0.6 E9/LNormal0.2-1.0[facility] HospitalComment on above:Performed By: #### [id number] #### [facility] [address] [place] [address]Adgpsfprtio (Bld) [#/Vol]10.0 E9/LHigh2.0-7.5FSalem Regional Medical CenterComment on above:Performed By: #### [id number] #### [facility] [address] [place] [address]Yrzlmigabjx/100 WBC (Bld)83.4 %High36.0-75.0Kn[facility] HospitalComment on above:Performed By: #### [id number] #### [facility] [address] [place] [address]Nchsryfj mean volume (Bld) [Entitic vol]8.9 fLNormal6.4-10.8 [facility] HospitalComment on above:Performed By: #### [id number] #### [facility] [address] [place] [address]Wzopfkaqb (Bld) [#/Vol]300.0 E9/MGumugw007.0-500.0Kn[facility] HospitalComment on above:Performed By: #### [id number] #### [facility] [address] [place] [address]PYW (Bld) [#/Vol]5.6 E12/LNormal4.3-5.9Kn[facility] HospitalComment on above:Performed By: #### [id number] #### [facility] [address] [place] [address]XPW corrected for nucl RBC Auto (Bld) [#/Vol]12.0 E9/LHigh 4.0-11.0[facility] HospitalComment on above:Performed By: #### [id number] #### [facility] [address] [place] [address]MYUYKKKSRJsehyvq By: SYSTEM SYSTEM on 80-56-7267Kkhhrbi [Mass/Vol]5.5 g/dLHigh3.3 - 5.0 gm/dLRemisol ChemAlbumin/Globulin [Mass ratio] 1.5 {ratio}Normal1.1 - 2.2Remisol ChemALP [Catalytic activity/Vol]71 [iU]/d Wzjzkn22 - 98 Int._Unit/LRemisol ChemALT No additional P-5'-P [Catalytic activity/Vol]42 [iU]/dNormal6 - 46 Int._Unit/LRemisol ChemAnion gap [Moles/Vol] 20 mmol/LHigh6 - 16 mEq/LRemisol ChemAST [Catalytic activity/Vol]19 [iU]/dNormal 5 - 43 Int._Unit/LRemisol ChemBilirubin [Mass/Vol]1.0 mg/dLNormal0.0 - 1.1 mg/dL Remisol ChemBilirubin.direct [Mass/Vol]0.2 mg/dLNormal0.0 - 0.4 mg/dLRemisol ChemBilirubin.indirect [Mass or moles/Vol]0.8 mg/dLNormal0.1 - 0.9 mg/dLRemisol ChemCalcium [Mass/Vol]10.9 mg/dLNormal8.9 - 11.1 mg/dLRemisol ChemChloride [Moles/Vol]101 mmol/HAybcti620 - 111 mmol/LRemisol ChemCO2 [Moles/Vol]22 mmol/L Wtyoor69 - 31 mmol/LRemisol ChemCreatinine [Mass/Vol]0.9 mg/dLNormal0.5 - 1.3 mg/dLRemisol UmkakDIY95 mL/min/1.73 l0Lobrhx>=59mL/min/1.73 h9Cuzeqep Chem Ethanol Lvlmg/dLNormal<=11mg/dLRemisol ChemGlobulin (S) [Mass/Vol]3.6 g/dLNormal 1.4 - 4.0 gm/dLRemisol ChemGlucose [Mass/Vol]116 mg/bBMpxncv14 - 199 mg/dL Remisol ChemLactic Acid Lvl1.6 mmol/LNormal0.5 - 2.2 mmol/LRemisol ChemLipase [Catalytic activity/Vol]8 U/LLow13 - 58 unit/LRemisol ChemPotassium [Moles/Vol] 3.3 mmol/LLow3.5 - 5.3 mmol/LRemisol ChemProtein [Mass/Vol]9.1 g/dLHigh6.0 - 7.8 gm/dLRemisol ChemSodium [Moles/Vol]140 mmol/CHfwcdl229 - 145 mmol/LRemisol Chem Troponin HS3.40 pg/mLLow10.10 - 27.10 pg/mLRemisol ChemComment on above: Interpretive Data: The 95% CI (Confidence Interval) PPV (Positive Predictive Value) for myocardial infarction in females is 38 pg/mL, in males 51 pg/mL. The results should be used in conjunction withclinical conditions of myocardial infarction. (Access High Sensitivity Troponin I Instructions For Use, Sugar Huoli, June 2018)Urea nitrogen [Mass/Vol]23 mg/dLHigh5 - 21 mg/dLRemisol ChemUrea nitrogen/Creatinine [Mass ratio]26 mg/ayGdwi59 - 20Remisol ChemCOAGULATION Ordered By: Ghazal Morrell on 39-34-0226kNCQ Coag (PPP) [Time]23.1 sLow25.1 - 36.5 second(s)[facility] [place] Auto CoagComment on above:Interpretive [...] the same coagulation reagent and instrumentation as [facility]. Currently there are no coagulation studies available worldwide for children to 14 days, andno normal ranges. Heparin therapeutic range (represented by Anti-Factor Xa activity of 0.2 - 0.4 U/mL) corresponds to PTT of 56.6 - 109.0 sec.INR Coag (PPP) [Relative time]1.10 {INR}Invalid Interpretation CodeCEDAR RIDGE HOSPITAL – [place] Auto CoagComment on above:Interpretive Data: INR results are specifically intended to assess patients stabilized on long-term Anticoagulation therapy suggested INR s Less Intensive Anticoagulation 2.0 3.0 Conventional Range 3.0 4.5PT Coag (PPP) [Time]12.3 sNormal9.4 - 12.5 second(s) [facility] [place] Auto CoagComment on above:Interpretive [...] the same coagulation reagent and instrumentation as [facility]. Currently there are no coagulation studies available worldwide for children to 14 days, andno normal ranges.ED Clinical Summaryon 62-31-3274FX Clinical SummaryED Clinical Summary [place] [address] ED Clinical Summary Person Information Name: PILI PARIKH/[facility] Age: 19 Years : 2005 Sex: Female Language: Kenyan PCP: MODESTA CHAND CNP Marital Status: Single [...] 01/16/2025 20:36:16 01/16/2025 20:36:16 01/16/2025 20:36:16 ADDRESS: [facility] [facility] [id number] PHYS DOC NOTES: MEDICAL INFORMATION: Prescriptions Given: New Medications [facility]/pharmacy #[id number], [address], [place] [id number], [phone] cyclobenzaprine (cyclobenzaprine 5 mg Tab) 1 Tablets By Mouth 3 times a day for 7 Days. Refills: 0. Medications to Continue Taking That Have Changed [facility]/pharmacy #[id number], [address], [place] [phone], [phone] START: naproxen (naproxen 500 mg Tab) 1 [...] Contusion; Fall Prevention in the Home, Adult, Etyf-zl-Humy Follow up: With: Address: When: MODESTA CHAND [address] [place] [phone] Business () In 3 days 2025 Comments: Call Dr for diagnosis based follow up DIAGNOSIS: Abdominal contusion; Fall down steps; [facility] [id number] Patient SummaryED Patient Summary [address] [address] Patient Discharge Instructions Person Information Name: PILI PARIKH Age: 19 Years Arrival Date: 01/16/2025 17:51:31 Discharge Diagnosis: Abdominal contusion; Fall down steps; Knee contusion Primary Care Physician: MODESTA CHAND CNP Provider Information Primary Provider: August Bermudez M.D. Advanced Excel Expert:Rashaad Albrecht PA-C The exam and treatment you received in the Emergency Department were for an urgent problem and are not intended as complete care. It is important that you follow up with a doctor, nurse practitioner,or physician???s acute care certified nursing assistant for ongoing care. If your symptoms become worse or you do not improve asexpected and you are unable to reach your usual health care provider, you should return to the Emergency Department. We are available 24 hours a day. PILI PARIKH has been given the following list of patient education materials, prescriptions andfollow-up instructions: Follow-up Instructions: With: Address: When: MODESTA CHAND [address] [place] [address] [place] [phone] Business (1) In 3 days 2025 Comments: Call Dr for diagnosis based follow up In the event that this physician does not participate in your insurance network, please consult with your insurance company to find a nearby participating provider. Patient Education Materials: RICE Therapy for Routine Care of Injuries; Contusion; Fall Prevention in the Home, Adult, Tmcc-oy-Psxb A MESSAGE TO ALL PATIENTS REGARDING OPIOIDS PRESCRIPTION OPIOIDS: WHAT YOU NEED TO KNOW Prescription opioids can be used to help relieve adcrffbo-gx-japwjq pain and are often prescribed following a [...] Administration (www.fda.gov/Drugs/ResourcesForYou). ??? Visit (more content not included)...NormalKnox Community HospitalEthanol on 87-49-7740Eyfjomr Lvl<10Normal<=11Knox Community HospitalComment on above:Performed By: #### [id number] #### Christophe [facility] [address] [place] [address]DYIJBYBZLDFlghtnk By: SYSTEM SYSTEM on 45-62-5157Zwjrppdpf/100 WBC (Bld)0.3 %Normal0.0 - 2.0 %Remisol HemeBasophils/Leukocytes Auto (Bld) [Pure # fraction]0.0 E9/LNormal0.0 - 0.2 E9/LRemisol HemeEosinophils (Bld) [#/Vol]0.0 E9/LNormal0.0 - 0.5 E9/LRemisol HemeEosinophils/100 WBC (Bld)0.0 %Normal0.0 - 8.0 %Remisol HemeErythrocyte distribution width (RBC) [Ratio]13.7 %Rgjtcx84.9 - 14.2 %Remisol HemeHematocrit (Bld) [Volume fraction]46.9 %High34.0 - 46.0 % Remisol HemeHemoglobin (Bld) [Mass/Vol]16.0 g/sYUhfuex85.0 - 16.0 gm/dLRemisol HemeLymphocytes (Bld) [#/Vol]1.4 E9/LNormal1.0 - 4.0 E9/LRemisol Heme Lymphocytes/100 WBC (Bld)11.6 %Low14.0 - 50.0 %Remisol HemeMCH (RBC) [Entitic mass]28.8 fcRzlgva06.0 - 34.0 pgRemisol HemeMCHC (RBC) [Mass/Vol]34.1 g/dLNormal 31.4 - 36.0 gm/dLRemisol HemeMCV (RBC) [Entitic vol]84.3 zJJzwoip58.0 - 100.0 fL Remisol HemeMonocytes (Bld) [#/Vol]0.6 E9/LNormal0.2 - 1.0 E9/LRemisol Heme Monocytes/100 WBC (Bld)4.7 %Normal4.0 - 14.0 %Remisol HemeNeutrophils (Bld) [#/Vol]10.0 E9/LHigh2.0 - 7.5 E9/LRemisol HemeNeutrophils/100 WBC (Bld)83.4 % High36.0 - 75.0 %Remisol HemePlatelet mean volume (Bld) [Entitic vol]8.9 fL Normal6.4 - 10.8 fLRemisol HemePlatelets (Bld) [#/Vol]300.0 E9/NMkmxrc108.0 - 500.0 E9/LRemisol HemeRBC (Bld) [#/Vol]5.6 E12/LNormal4.3 - 5.9 E12/LRemisol HemeWBC corrected for nucl RBC Auto (Bld) [#/Vol]12.0 E9/LHigh4.0 - 11.0 E9/L Remisol HemeHep Func Panelon 22-14-0181Uisipne [Mass/Vol]5.5 g/dLHigh3.3-5.0 [facility] Community HospitalComment on above:Performed By: #### [id number] #### [facility] [address] [place], [place] [address]Ouvndof/Globulin (S) [Mass conc ratio]1.4Wjvagq9.1-2.2FSalem Regional Medical CenterComment on above:Performed By: #### [id number] #### [facility] [address] [place], [place] [address]OXO [Catalytic activity/Vol]71 Int._Unit/ACpbhdl36-63SgdhpeKnox Community HospitalComment on above:Performed By: #### [id number] #### [facility] [address] [place] [address] No additional P-5'-P [Catalytic activity/Vol]42 Int._Unit/L Normal6-46Kn[facility] Community HospitalComment on above:Performed By: #### [id number] #### [facility] [address] [place] [address]COS [Catalytic activity/Vol]19 Int._Unit/LNormal5-43Kn[facility] Community HospitalComment on above:Performed By: #### [id number] #### [facility] [address], [place] [address]Nxyiaryqm [Mass/Vol]1.0 mg/dLNormal0.0-1.1FSalem Regional Medical CenterComment on above:Performed By: #### [id number] #### [facility] [address] [place] [address]Rngzmpnwr.direct [Mass/Vol]0.2 mg/dLNormal0.0-0.4FSalem Regional Medical CenterComment on above:Performed By: #### [id number] #### [facility] [address], [place] [address]Hfoahmazb.indirect [Mass or moles/Vol]0.8 mg/dLNormal0.1-0.9 [facility] HospitalComment on above:Performed By: #### [id number] #### [facility] [address], [place] [address]Vggyrdes (S) [Mass/Vol]3.6 g/dLNormal1.4-4.0Knox Community HospitalComment on above:Performed By: #### [id number] #### [facility] [address], [place] [address]Fijriol [Mass/Vol]9.1 g/dLHigh6.0-7.8Kn[facility] Community HospitalComment on above:Performed By: #### [id number] #### [facility] [address] [place] [address]Xkqyul Acidon 76-58-6421Qaotho Acid Lvl1.6 mmol/LNormal0.5-2.2 [facility] HospitalComment on above:Performed By: #### [id number] #### [facility] [address], [place] [address]Kaegbo Levelon 56-47-1839Wborwg [Catalytic activity/Vol]8 U/L Wem33-25PhumgjKnox Community HospitalComment on above:Performed By: #### [id number] #### [facility] [address], [place] [address]KS & PTTon 44-76-9259yCAJ Coag (PPP) [Time]23.1 second(s)Low 25.1-36.5FSalem Regional Medical CenterComment on above:Result Comment: Parameter 15 [...] the same coagulation reagent and instrumentation as [facility]. Currently there are no coagulation studies available worldwide for children to 14 days, andno normal ranges. Heparin therapeutic range (represented by Anti-Factor Xa activity of 0.2 - 0.4 U/mL) corresponds to PTT of 56.6 - 109.0 sec.Performed By: #### [id number] #### Saeed [facility] [address], [place] [address]MHH Coag (PPP) [Relative time]1.10 {INR}Invalid Interpretation CodeKnox Community HospitalComment on above:Result Comment: INR results are specifically intended to assess patients stabilized on long-term Anticoagulation therapy suggested INR???s ???Less Intensive Anticoagulation??? 2.0 ??? 3.0 Conventional Range 3.0 ??? 4.5Performed By: #### [id number] #### Saeed [facility] [address], [place] [address]YX Coag (PPP) [Time]12.3 second(s)Normal9.4-12.5Fisher [facility]c Western MarylandComment on above:Result Comment: 15 days - 4 [...] the same coagulation reagent and instrumentation as [facility]. Currently there are no coagulation studies available worldwide for children to 14 days, andno normal ranges.Performed By: #### [id number] #### [facility] [address], [place] [address]Jyl-Ffpvpiv Noteon 00-14-3793Fsw-Arrival NotePre-Arrival Note Pre-Arrival Summary Name: ruben Current Date: 01/16/2025 17:51:59 EST Gender: Female Date of : Age: 19 Pre-Arrival Type: EMS ETA: 01/16/2025 18:12:00 EST Primary Care Physician: Presenting Problem: fall Pre-Arrival User: Referring Source: Location: Completion Date/Time: 01/16/2025 17:42:00 [facility] Emergency Department Pre-Hospital Report Form Vital Signs: Pre-Hospital Report: Treatment in Route: Response to Treatment: Misc. Issues:NormalUC West Chester HospitalEROLOGYOrdered By: Ghazal Morrell on 11-39-4341Vhfl HCG ( test) QlNegative (01/16/25 7:26 PM)[facility] Man SeroTroponinon 81-02-9980Jajucplg HS3.40 pg/mL Low10.10-27.10Kn[facility] Community HospitalComment on above:Result Comment: The 95% CI (Confidence Interval) PPV (Positive Predictive Value) for myocardial infa rction in females is 38 pg/mL, in males 51 pg/mL. The results should be used in conjunction with clinical conditions of myocardial infarction. (Access High Sensitivity Troponin I Instructions For Use, Sugar Thelma, June 2018)Performed By: #### [id number] #### [facility] [address], [place] [address]wQCPyv 43-12-8608dXGT17 mL/min/1.73 s8Xcqfna>=59Kn[facility] Community HospitalComment on above:Performed By: #### [id number] #### [facility] [address], [place] [address]Yujmvaw aminotransferase [Enzymatic activity/volume] in Serum or PlasmaOrdered By: Rd Brown on 42-67-6698CSR [Catalytic activity/Vol] Alanine aminotransferase [Enzymatic activity/volume] in Serum or Plasma7 Veterans Health AdministrationAlbumin [Mass/volume] in Serum or Plasma by Bromocresol green (BCG) dye binding methoOrdered By: Rd Brown on 10-28-2024 Albumin BCG dye [Mass/Vol]Albumin [Mass/volume] in Serum or Plasma by Bromocresol green (BCG) dye binding metho3.5-5.7FMercy Health West HospitalAlkaline phosphatase [Enzymatic activity/volume] in Serum or PlasmaOrdered By: Rd Brown on 34-44-4827CUU [Catalytic activity/Vol]Alkaline phosphatase [Enzymatic activity/volume] in Serum or Vhhurd70-658MjetlvcmuVeterans Health AdministrationAmphetamine Screen Ql (U)Ordered By: Rd Brown on 10-28-2024 Amphetamines Ql (U)Amphetamines screenNegativeVeterans Health Administration Appearance of UrineOrdered By: Rd Brown on 68-40-7909Jscvdcondv (U)Urine appearanceAbnormalClearVeterans Health AdministrationAspartate aminotransferase [Enzymatic activity/volume] in Serum or PlasmaOrdered By: Rd Brown on 16-33-7019TQC [Catalytic activity/Vol]Aspartate aminotransferase [Enzymatic activity/volume] in Serum or Holgap04-02CtsirylhuVeterans Health AdministrationBacteria [Presence] in Urine by AutomatedOrdered By: Rd Brown on 10-74-2826Fftxizfq Auto Ql (U)Bacteria [Presence] in Urine by AutomatedHighNone SeenVeterans Health AdministrationBarbiturates [Presence] in Urine by Screen methodOrdered By: Rd Brown on 38-31-9013Kjjjyllnxeoa Screen Ql (U) Barbiturates [Presence] in Urine by Screen methodNegLima City HospitalBasic Metabolic Panelon 98-31-0164Lxacq gap [Moles/Vol]19.5 mmol/L High6.0-15.0The [facility] Physician GroupComment on above:Performed By: #### PAP [id number], GCCHLAMTRI #### [facility] , #### OBUDS #### [facility] [address] [place] [address] USACalcium [Mass/Vol]10.4 mg/dLHigh8.6-10.3The [facility] Physician GroupComment on above:Performed By: #### PAP [id number], GCCHLAMTRI #### [facility] , #### OBUDS #### [facility] [address] [place] [address] USAChloride [Moles/Vol]94 mmol/ZBpe74-936Kzz [facility] Physician GroupComment on above:Performed By: #### PAP [id number], GCCHLAMTRI #### [facility] , #### OBUDS #### [facility] [address] [place] [address] USACO2 [Moles/Vol]26.3 mmol/CHvyyyj72.0-31.0The [facility] Physician GroupComment on above:Performed By: #### PAP [id number], GCCHLAMTRI #### [facility] , #### OBUDS #### [facility] [address] [place] [address] USACreatinine [Mass/Vol]0.91 mg/dLNormal0.60-1.20The [facility] Physician GroupComment on above:Performed By: #### PAP [id number], GCCHLAMTRI #### [facility] , #### OBUDS #### [facility] [address] [place] [address] USACreatinine Clr Calc Zmgpuirw412.62NormalThe [facility] Physician GroupComment on above:Performed By: #### PAP [id number], GCCHLAMTRI #### [facility] , #### OBUDS #### [facility] [address] [place] [address] USAGFR/1.73 sq M.predicted MDRD (S/P/Bld) [Vol rate/Area] mL/min/{1.73_m2}NormalThe [facility] Physician GroupComment on above:Performed By: #### PAP [id number], GCCHLAMTRI #### [facility] , #### OBUDS #### [place] [address] USAGlucose [Mass/Vol]91 mg/gBXrmcep25-007Nhw [facility] Physician GroupComment on above:Result Comment: Random Glucose Reference Range is dependent on time and content of last meal. Glucose of more than 200 mg/dL in a nonstressed, ambulatory subject supports the diagnosis of Diabetes Mellitus. ADA recommended reference rangePerformed By: #### PAP [id number], GCCHLAMTRI #### [facility] , #### OBUDS #### [place] [address] USAPotassium [Moles/Vol]2.8 mmol/LOff scale low3.5-5.1The [facility] Physician GroupComment on above:Result Comment: Critical Result Called to and read back by: MATT BUSH at: 10/28/2024 19:29:56 by:[id number] By: #### PAP [id number], GCCHLAMTRI #### [facility] , #### OBUDS #### [place] [address] USASodium [Moles/Vol]137 mmol/NEqxtqy791-335Diq [facility] Physician GroupComment on above:Performed By: #### PAP [id number], GCCHLAMTRI #### [facility] , #### OBUDS #### [facility] [address] [place] [address] USAUrea nitrogen [Mass/Vol]21 mg/dLNormal7-25The [facility] Physician GroupComment on above:Performed By: #### PAP [id number], GCCHLAMTRI #### [facility] , #### OBUDS #### [place] [address] USABasophils Auto (Bld) [#/Vol]Ordered By: Rd Brown on 07-84-2337Suhgaobum (Bld) [#/Vol]Automated basophil count0.0-0.2FMercy Health West HospitalBasophils/100 WBC Auto (Bld)Ordered By: Rd Brown on 93-70-3235Igevlpkne/100 WBC (Bld)Automated basophil %.[facility] Health AdministrationBenzodiazepines Screen Ql (U)Ordered By: Rd rBown on 10-28-2024 Benzodiazepines Ql (U)Benzodiazepines [Presence] in Urine by Screen method NegativeVeterans Health AdministrationBenzoylecgonine [Presence] in Urine by Screen methodOrdered By: Rd Brown on 19-07-0644Fsppjrwoiixrnfb Screen Ql (U) Benzoylecgonine [Presence] in Urine by Screen methodNegativeVeterans Health AdministrationBilirubin Test strip Ql (U)Ordered By: Rd Brown on 10-28-2024 Bilirubin Ql (U)Bilirubin.total [Presence] in Urine by Test stripNegative [facility] Health AdministrationBilirubin.direct [Mass/volume] in Serum or PlasmaOrdered By: Rd Brown on 23-03-2190Kksygneuo.direct [Mass/Vol] Bilirubin.direct [Mass/volume] in Serum or PlasmaHigh0.03-0.18FMercy Health West HospitalBilirubin.total [Mass/volume] in Serum or PlasmaOrdered By: Rd Brown 01-74-3224Qajfyyfwt [Mass/Vol]Bilirubin.total [Mass/volume] in Serum or PlasmaHigh0.3-1.0V[facility] Health AdministrationCalcium [Mass/volume] in Serum or PlasmaOrdered By: Rd Brown 49-49-8087Bbusaes [Mass/Vol] Calcium [Mass/volume] in Serum or PlasmaHigh8.6-10.3FMercy Health West HospitalCannabinoids [Presence] in Urine by Screen methodOrdered By: Rd Brown on 52-48-7388Ocfwiorhsowt Screen Ql (U)Cannabinoids [Presence] in Urine by Screen methodHighNegativeVeterans Health AdministrationComment on above:These are unconfirmed results and should not be used for legal purposes. Drug Cut-Off Concentration: AMPH 1000 ng/mL NIKOLAS 200 ng/mL SHRAVAN 200 ng/mL COCM 300 ng/mL OP 300 ng/mL PCP 25 ng/mL THC 20 ng/mLCarbon dioxide, total [Moles/volume] in Serum or PlasmaOrdered By: Rd Brown on 79-67-2792JW2 [Moles/Vol]Carbon dioxide, total [Moles/volume] in Serum or Wnwtxz95.0-31.0V[facility] Health AdministrationChloride [Moles/volume] in Serum or PlasmaOrdered By: Rd Brown on 29-09-0180Gdyzwrtu [Moles/Vol]Chloride [Moles/volume] in Serum or PlasmaLow 98-107V[facility] Health AdministrationColor Auto (U)Ordered By: Rd Brown on 17-75-4181Zualu (U)Color of Urine by AutoAbnormalYellowVeterans Health AdministrationComplete Blood Count Auto Diffon 36-47-6117Bchbdgkpy (Bld) [#/Vol] 0.1 10*3/uLNormal0.0-0.2The [facility] Physician GroupComment on above:Result Comment: PERFORMED BY: [place] [address] PATHOLOGIST AIRPORT UTILITY WORKER IDANIA GODOY M.D.Performed By: #### PAP [id number], GCCHLAMTRI #### [facility] , #### OBUDS #### [facility] [address] [place] [address] USABasophils/100 WBC (Bld)0.7 %Normal.The [facility] Physician GroupComment on above:Performed By: #### PAP [id number], GCCHLAMTRI #### [facility] , #### OBUDS #### [facility] [address] [place] [address] USAEosinophils (Bld) [#/Vol]0.1 10*3/uLNormal0.0-0.45The [facility] Physician GroupComment on above:Performed By: #### PAP [id number], GCCHLAMTRI #### [facility] , #### OBUDS #### [place] [address] USAEosinophils/100 WBC (Bld)0.6 %Normal.The [facility] Physician GroupComment on above:Performed By: #### PAP [id number], GCCHLAMTRI #### [facility] , #### OBUDS #### [place] [address] USAErythrocyte distribution width (RBC) [Ratio]13.4 %Normal 11.9-15.3The [facility] Physician GroupComment on above:Performed By: #### PAP [id number], GCCHLAMTRI #### [facility] , #### OBUDS #### [place] [address] USAHematocrit (Bld) [Volume fraction]49.2 %High34.0-46.4The [facility] Physician GroupComment on above:Performed By: #### PAP [phone], GCCHLAMTRI #### [facility] , #### OBUDS #### [place] [address] USAHemoglobin (Bld) [Mass/Vol]16.5 g/mCDwuu70.8-15.4The [facility] Physician GroupComment on above:Performed By: #### PAP [id number], GCCHLAMTRI #### [facility] , #### OBUDS #### [place] [address] USALymphocytes (Bld) [#/Vol]2.9 10*3/uLNormal1.00-4.8The [facility] Physician GroupComment on above:Performed By: #### PAP [id number], GCCHLAMTRI #### [facility] , #### OBUDS #### [place] [address] USALymphocytes/100 WBC (Bld)14.7 %Normal.The [facility] Physician GroupComment on above:Performed By: #### PAP 799144, GCCHLAMTRI #### [facility] , #### OBUDS #### [address]H (RBC) [Entitic mass]28.7 rzLzdjxo73.7-34.3The [facility] Physician GroupComment on above:Performed By: #### PAP [id number], GCCHLAMTRI #### [facility] , #### OBUDS #### [facility] [address] [place], [place] [address]V (RBC) [Entitic vol]85.7 tWYetgoa70-327Kwg [facility] Physician GroupComment on above:Performed By: #### PAP 338747, GCCHLAMTRI #### [facility] , #### OBUDS #### [facility] [address] [place] [address] USAMean Corpuscular HGB Conc33.5 g/aOTyqdck39.0-35.0The [facility] Physician GroupComment on above:Performed By: #### PAP 453389, GCCHLAMTRI #### [facility] , #### OBUDS #### [facility] [address] [place] [address] USAMonocytes (Bld) [#/Vol]1.2 10*3/uLHigh0.0-0.8The [facility] Physician GroupComment on above:Performed By: #### PAP [id number], GCCHLAMTRI #### [facility] , #### OBUDS #### [facility] [address] [place] [address] USAMonocytes/100 WBC (Bld)16.96 %Normal0.00-20.00The [facility] Physician GroupComment on above:Performed By: #### PAP [id number], GCCHLAMTRI #### [facility] , #### OBUDS #### [place] [address] USAMonocytes/100 WBC (Bld)5.9 %Normal.The [facility] Physician GroupComment on above:Performed By: #### PAP 192786, GCCHLAMTRI #### [facility] , #### OBUDS #### [facility] [address] [place] [address] USANeutrophils (Bld) [#/Vol]15.5 10*3/uLHigh1.8-7.7The [facility] Physician GroupComment on above:Performed By: #### PAP [id number], GCCHLAMTRI #### [facility] , #### OBUDS #### [place] [address] USANeutrophils/100 WBC (Bld)78.1 %Normal.The [facility] Physician GroupComment on above:Performed By: #### PAP [id number], GCCHLAMTRI #### [facility] , #### OBUDS #### [place] [address] USANRBC%0.1 /100{WBC}Normal0-0.5The [facility] Comment on above:Performed By: #### PAP 708263, GCCHLAMTRI #### [facility] , #### OBUDS #### [facility] [address] [place] [address] USAPlatelet mean volume (Bld) [Entitic vol]8.4 fLNormal 6.3-10.7The [facility] Physician GroupComment on above:Performed By: #### PAP [id number], GCCHLAMTRI #### [facility] , #### OBUDS #### [facility] [address] [place] [address] USAPlatelets (Bld) [#/Vol]333 10*3/iNAvdbjj260-386Opx [facility] Physician GroupComment on above:Performed By: #### PAP 759609, GCCHLAMTRI #### [facility] , #### OBUDS #### [facility] [address] [place] [address] USARBC (Bld) [#/Vol]5.74 10*6/uLHigh3.60-5.00The [facility] Physician GroupComment on above:Performed By: #### PAP 339709, GCCHLAMTRI #### [facility] , #### OBUDS #### [facility] [address] [place] [address] USAWBC (Bld) [#/Vol]19.8 10*3/uLHigh3.8-11.6The [facility] Physician GroupComment on above:Performed By: #### PAP [id number], GCCHLAMTRI #### [facility] , #### OBUDS #### [place] [address] USACreatinine [Mass/volume] in Serum or PlasmaOrdered By: Rd Brown on 07-27-2525Ebceizgvsk [Mass/Vol]Creatinine [Mass/volume] in Serum or Plasma0.60-1.20Veterans Health AdministrationDipstick and Microscopicon 34-18-3714Kzczywwmmx (U)TurbidCritically abnormalClearThe [facility] Physician GroupComment on above:Order Comment: Name Collection Type:: Clean-Voided MidstreamPerformed By: #### ADDONUAPLUS, CUU, UHCG #### [place] [address] USABacteria,Urine1+HighNone SeenThe [facility] Physician Group Comment on above:Order Comment: Name Collection Type:: Clean-Voided Midstream Performed By: #### ADDONUAPLUS, CUU, UHCG #### [place] [address] USABilirubin,UrineNegativeNormalNegativeHca Florida St. Petersburg Hospital Physician GroupComment on above:Order Comment: Name Collection Type:: Clean- Voided MidstreamPerformed By: #### ADDONUAPLUS, CUU, UHCG #### [facility] [address] [place] [address] USAColor (U)Light-OrangeCritically abnormalYellowHca Florida St. Petersburg Hospital Physician GroupComment on above:Order Comment: Name Collection Type:: Clean-Voided MidstreamPerformed By: #### ADDONUAPLUS, CUU, UHCG #### [facility] [address] [place] [address] USAGlucose Ql (U)NormalNormalNormalThSt. Luke's [facility] Physician GroupComment on above:Order Comment: Name Collection Type:: Clean-Voided MidstreamPerformed By: #### ADDONUAPLUS, CUU, UHCG #### [facility] [address] [place] [address] USAHyaline Casts,Urine9 [LPF]High0-8The [facility] Physician GroupComment on above:Order Comment: Name Collection Type:: Clean-Voided MidstreamPerformed By: #### ADDONUAPLUS, CUU, UHCG #### [facility] [address] [place] [address] USAKetones Ql (U)3+HighNegativeHca Florida St. [facility] Physician Group Comment on above:Order Comment: Name Collection Type:: Clean-Voided Midstream Performed By: #### ADDONUAPLUS, CUU, UHCG #### [facility] [address] [place], [place] [address] USALeukocyte esterase Test strip Ql (U)3+HighNegativeHca Florida St. Petersburg Hospital Physician GroupComment on above:Order Comment: Name Collection Type:: Clean-Voided MidstreamPerformed By: #### ADDONUAPLUS, CUU, UHCG #### [facility] [address] [place] [address] USAMucus,Urine4+Critically abnormalHca Florida St. Petersburg Hospital Physician GroupComment on above:Order Comment: Name Collection Type:: Clean-Voided MidstreamPerformed By: #### ADDONUAPLUS, CUU, UHCG #### [place] [address] USANitrite,UrineNegativeNormalNegativeThe [facility] Physician GroupComment on above:Order Comment: Name Collection Type:: Clean-Voided MidstreamPerformed By: #### ADDONUAPLUS, CUU, UHCG #### [place] [address] USAOccult Blood,Urine3+HighNegativeThe [facility] Physician GroupComment on above:Order Comment: Name Collection Type:: Clean-Voided MidstreamPerformed By: #### ADDONUAPLUS, CUU, UHCG #### [place] [address] USApH (U)8.0 [pH]Normal5.0-9.0The [facility] Comment on above:Order Comment: Name Collection Type:: Clean-Voided Midstream Performed By: #### ADDONUAPLUS, CUU, UHCG #### [place] [address] USAProtein (U) [Mass/Vol]100 mg/dLHighNegativeThe [facility] Physician GroupComment on above:Order Comment: Name Collection Type:: Clean- Voided MidstreamPerformed By: #### ADDONUAPLUS, CUU, UHCG #### [place] [address] USARBC,UrineInnumerableHigh0-4The [facility] Comment on above:Order Comment: Name Collection Type:: Clean-Voided Midstream Performed By: #### ADDONUAPLUS, CUU, UHCG #### [place] [address] USASpecificy Mcarthur,Urine1.039Wggxxt5.001-1.030The [facility] Physician GroupComment on above:Order Comment: Name Collection Type:: Clean- Voided MidstreamPerformed By: #### ADDONUAPLUS, CUU, UHCG #### [place] [address] USASquamous Epithelial Cell,Urine1 [HPF]Normal0-2The [facility] Physician GroupComment on above:Order Comment: Name Collection Type:: Clean-Voided MidstreamPerformed By: #### ADDONUAPLUS, CUU, UHCG #### [facility] [address] [place] [address] USAUrobilinogen,Urine6 mg/dLHighNormalThSt. Luke's [facility] Physician GroupComment on above:Order Comment: Name Collection Type:: Clean-Voided MidstreamPerformed By: #### ADDONUAPLUS, CUU, UHCG #### [place] [address] USAWBC,Urine50 [HPF]High0-4The [facility] Comment on above:Order Comment: Name Collection Type:: Clean-Voided Midstream Performed By: #### ADDONUAPLUS, CUU, UHCG #### [place] [address] USADrug Screen,Urineon 03-56-9385Ldkialeicft Screen,Urine NegativeNormalNegativeThe [facility] Physician GroupComment on above:Performed By: #### PAP [id number], GCCHLAMTRI #### [facility] , #### OBUDS #### [facility] [address] [place] [address] USABarbiturate Screen,UrineNegativeNormalNegativeThe [facility] Physician GroupComment on above:Performed By: #### PAP [id number], GCCHLAMTRI #### [facility] , #### OBUDS #### [facility] [address] [place], [place] [address] USABenzodiazepines Screen,UrineNegativeNormalNegativeThe [facility] Physician GroupComment on above:Performed By: #### PAP [id number], GCCHLAMTRI #### [facility] , #### OBUDS #### [facility] [address] [place] [address] USACannabinoid Screen,UrinePositiveHighNegativeThe [facility] Physician GroupComment on above:Result Comment: These are unconfirmed results and should not be used for legal purposes. Drug Cut-Off Concentration: AMPH 1000 ng/mL NIKOLAS 200 ng/mL SHARVAN 200 ng/mL COCM 300 ng/mL OP 300 ng/mL PCP 25 ng/mL THC 20 ng/mL PERFORMED BY: [place] [address] PATHOLOGIST AIRPORT UTILITY WORKER IDANIA GODOY M.D.Performed By: #### PAP [id number], GCCHLAMTRI #### [facility] , #### OBUDS #### [place] [address] USACocaine Screen,UrineNegativeNormalNegativeThe [facility] Physician GroupComment on above:Performed By: #### PAP [id number], GCCHLAMTRI #### [facility] , #### OBUDS #### [place] [address] USAOpiate Screen,UrineNegativeNormalNegativeThe [facility] Physician GroupComment on above:Performed By: #### PAP [id number], GCCHLAMTRI #### [facility] , #### OBUDS #### [place] [address] USAPhencyclidine Screen,UrineNegativeNormalNegativeThe [facility] Physician GroupComment on above:Performed By: #### PAP [phone], GCCHLAMTRI #### [facility] , #### OBUDS #### [place] [address] USAECG 12 lead ECGon 36-35-0639MHL 12 lead ECGCLEVELAND CLINIC HILLCREST [facility] Main [place] [address] [place] [address] Electrocardiograph Report Signed Patient: Pili Parikh MR#: [id number] 1526 : 2005 Acct:[id number] Age/Sex: 19 / F ADM Date: 10/28/24 Loc: ER Room: Type: [facility] ER Attending Dr: Ordering Provider: [...] sinus rhythm Confirmed by Robert BOLANOS DO ([id number]) on 10/28/2024 9:48:18 PM Referred By: Electronically Signed By: Robert BOLANOS DO Transcribed By: MUS Signed By Robert Bolanos DO 1 12/29/23 2148[facility] Physician GroupEosinophils Auto (Bld) [#/Vol] Ordered By: Rd Brown on 38-10-9837Dqkouunypft (Bld) [#/Vol]Automated eosinophil count0.0-0.45Veter[facility] Health AdministrationEosinophils/100 WBC Auto (Bld)Ordered By: Rd Brown on 61-48-1278Kvzfvclnslf/100 WBC (Bld) Automated eosinophil %.V[facility] Health AdministrationEpithelial cells.squamous [#/area] in Urine sediment by Automated countOrdered By: Rd Brown on 13-90-7952Hhnhzhjlnm cells.squamous Auto (Urine sed) [#/Area]Epithelial cells.squamous [#/area] in Urine sediment by Automated count0-2FMercy Health West HospitalErythrocyte distribution width Auto (RBC) [Ratio]Ordered By: Rd Brown on 03-04-5470Ygiixlsxrfr distribution width (RBC) [Ratio] Erythrocyte distribution width [Ratio] by Automated count11.9-15.3FMercy Health West HospitalErythrocytes [#/area] in Urine sediment by Automated countOrdered By: Rd Brown on 83-67-7727JWP Auto (Urine sed) [#/Area] Erythrocytes [#/area] in Urine sediment by Automated countHigh04FMercy Health West HospitalGlobulin Calc (S) [Mass/Vol]Ordered By: Rd Brown on 93-07-6160Qzvzdzfk (S) [Mass/Vol]Serum globulin measurement by calculation (mass/volume)[facility] Health AdministrationGlucose [Mass/volume] in Serum or PlasmaOrdered By: Rd Brown on 67-36-6394Bxnjeyy [Mass/Vol]Glucose [Mass/volume] in Serum or Csevfy03-122UgintyxokVeterans Health AdministrationComment on above:ADA recommended reference rangeRandom Glucose Reference Range is dependent on time and content of last meal. Glucose of more than 200 mg/dL in a nonstressed, ambulatory subject supports the diagnosisof Diabetes Mellitus. Glucose [Mass/volume] in Urine by Test stripOrdered By: Rd Brown on 80-03-9176Omjhupi Test strip (U) [Mass/Vol]Glucose [Mass/volume] in Urine by Test stripNormalVeterans Health AdministrationHC ( test) IA.rapid Ql (U)Ordered By: Rd Brown on 60-09-2070WDM ( test) Ql (U)Urine human chorionic gonadotropin (hCG) detection by immunoassayVeterans Health AdministrationHC,Urineon 42-32-3406Ytfn HCG ( test) Ql (U)Negative NormalThe [facility] Physician GroupComment on above:Order Comment: Name Collection Type:: Clean-Voided MidstreamResult Comment: PERFORMED BY: [facility] [address] [place] [address] PATHOLOGIST [employer]PORT UTILITY WORKER IDANIA GODOY M.D.Performed By: #### ALIREZA RED [facility] CLINIC HILLCREST HOSPITALG #### [facility] [address] [place] [address] USAHematocrit Auto (Bld) [Volume fraction]Ordered By: Rd Brown on 85-86-1595Qsapdcjend (Bld) [Volume fraction]Hematocrit [Volume Fraction] of Blood by Automated aslejXaap42.0-46.4FMercy Health West HospitalHemoglobin Test strip Ql (U)Ordered By: Rd Brown on 10-28-2024 Hemoglobin Ql (U)Hemoglobin [Presence] in Urine by Test stripHighNegative Veterans Health AdministrationHemoglobin [Mass/volume] in BloodOrdered By: Rd Brown on 89-18-8346Wthbxmykpt (Bld) [Mass/Vol]Hemoglobin [Mass/volume] in DnrpkJjjr56.8-15.4FMercy Health West HospitalHepatic Panelon 10-28-2024 Albumin [Mass/Vol]5.4 g/dLNormal3.5-5.7The [facility] Physician GroupComment on above:Performed By: #### PAP [id number], GCCHLAMTRI #### [facility] , #### OBUDS #### [facility] [address] [place] [address] USAAlbumin/Globulin [Mass ratio]1.5 {ratio}NormalThe [facility] Physician GroupComment on above:Performed By: #### PAP [id number], GCCHLAMTRI #### [facility] , #### OBUDS #### [place] [address] USAALP [Catalytic activity/Vol]78 U/UOjjcub45-666Mqf [facility] Physician GroupComment on above:Performed By: #### PAP [id number], GCCHLAMTRI #### [facility] , #### OBUDS #### [facility] [address] [place] [address] USAALT [Catalytic activity/Vol]48 U/LNormal7-52The [facility] Physician GroupComment on above:Performed By: #### PAP [phone], GCCHLAMTRI #### [facility] , #### OBUDS #### [facility] [address] [place] [address] USAAST [Catalytic activity/Vol]30 U/ACpcyqc06-98Zuf [facility] Physician GroupComment on above:Performed By: #### PAP [id number], GCCHLAMTRI #### [facility] , #### OBUDS #### [facility] [address] [place] [address] USABilirubin [Mass/Vol]1.1 mg/dLHigh0.3-1.0The [facility] Physician GroupComment on above:Performed By: #### PAP [id number], GCCHLAMTRI #### [facility] , #### OBUDS #### [place] [address] USABilirubin,Indirect0.9 mg/dLNoAtrium Health Physician GroupComment on above:Performed By: #### PAP [id number], GCCHLAMTRI #### [facility] , #### OBUDS #### [place] [address] USABilirubin.indirect [Mass/Vol]0.20 mg/dLHigh0.03-0.18The [facility] Physician GroupComment on above:Performed By: #### PAP [phone], GCCHLAMTRI #### [facility] , #### OBUDS #### [place] [address] USAGlobulin (S) [Mass/Vol]3.5 g/dLNormMemorial Health System Marietta Memorial Hospitale [facility] Physician GroupComment on above:Performed By: #### PAP [id number], GCCHLAMTRI #### [facility] , #### OBUDS #### [place] [address] USAProtein [Mass/Vol]8.9 g/dLNormal6.4-8.9The [facility] Physician GroupComment on above:Performed By: #### PAP [id number], GCCHLAMTRI #### [facility] , #### OBUDS #### [place] [address] USAHyaline casts [#/area] in Urine sediment by Automated countOrdered By: Rd Brown on 44-60-7712Egcuqye casts Auto (Urine sed) [#/Area]Hyaline casts [#/area] in Urine sediment by Automated countHigh0-8 [facility] Health AdministrationKetones Test strip Ql (U)Ordered By: Rd Brown on 16-90-4010Yqgkbsp Ql (U)Ketones [Presence] in Urine by Test stripAshtabula General Hospital CenterLeukocyte esterase [Presence] in Urine by Test stripOrdered By: Rd Brown on 69-46-0034Eplqpxlzi esterase Test strip Ql (U)Leukocyte esterase [Presence] in Urine by Test stripHighNegativeVeterans Health AdministrationLeukocytes [#/area] in Urine sediment by Automated count Ordered By: Rd Brown on 85-85-0713DCH Auto (Urine sed) [#/Area]Leukocytes [#/area] in Urine sediment by Automated countHigh0-4FMercy Health West HospitalLeukocytes [#/volume] corrected for nucleated erythrocytes in Blood by Automated counOrdered By: Rd Brown on 71-24-9476YXD corrected for nucl RBC Auto (Bld) [#/Vol]Leukocytes [#/volume] corrected for nucleated erythrocytes in Blood by Automated counHigh3.8-11.6FMercy Health West HospitalLipaseon 67-58-4137Klpwun [Catalytic activity/Vol]19.0 U/VMuhgug95.0-82.0The [facility] Physician GroupComment on above:Result Comment: PERFORMED BY: [place] [address] PATHOLOGIST [employer]PORT UTILITY WORKER IDANIA GODOY M.D.Performed By: #### PAP [id number], GCCHLAMTRI #### [facility] , #### OBUDS #### [place] [address] USALipase [Enzymatic activity/volume] in Serum or Plasma Ordered By: Rd Brown on 85-59-2561Abyjxa [Catalytic activity/Vol]Lipase [Enzymatic activity/volume] in Serum or Jnbhxw68.0-82.0V[facility] Health AdministrationLymphocytes Auto (Bld) [#/Vol]Ordered By: Rd Brown on 74-26-6652Lkkhptpxlvg (Bld) [#/Vol]Lymphocytes [#/volume] in Blood by Automated count1.00-4.8V[facility] Health AdministrationLymphocytes/100 WBC Auto (Bld) Ordered By: Rd Brown on 59-33-7495Zajecvsixah/100 WBC (Bld)Lymphocytes/100 leukocytes in Blood by Automated count.[facility] CenterH Auto (RBC) [Entitic mass]Ordered By: Rd Brown on 46-33-0701RMT (RBC) [Entitic mass]MCH [Entitic mass] by Automated count24.7-34.3FProMedica Fostoria Community HospitalHC Auto (RBC) [Mass/Vol]Ordered By: Rd Brown on 27-30-8067SFXY (RBC) [Mass/Vol]MCHC [Mass/volume] by Automated count32.0-35.0V[facility] Health AdministrationMCV Auto (RBC) [Entitic vol]Ordered By: Rd Brown on 10-28-2024 MCV (RBC) [Entitic vol]MCV [Entitic volume] by Automated fhrpe71-119CycjtcocnVeterans Health AdministrationMonocyte distribution width [Entitic volume] in Blood by AutomatedOrdered By: Rd Brown on 54-23-3898Ibbcuyne distribution width Auto (Bld) [Entitic vol]Monocyte distribution width [Entitic volume] in Blood by Automated0.00-20.00V[facility] Health AdministrationMonocytes Auto (Bld) [#/Vol] Ordered By: Rd Brown on 60-21-9197Hxzsxwnpk (Bld) [#/Vol]Automated blood monocyte countHigh0.0-0.8V[facility] Health AdministrationMonocytes/100 WBC Auto (Bld)Ordered By: Rd Brown on 46-83-0252Ghaahxepz/100 WBC (Bld)Automated monocyte %.[facility] Health AdministrationMucus [Presence] in Urine by AutomatedOrdered By: Rd Brown on 69-65-6948Tzejj Auto Ql (U)Mucus [Presence] in Urine by AutomatedAbnormalVeterans Health AdministrationNeutrophils Auto (Bld) [#/Vol]Ordered By: Rd Brown on 33-51-2862Qjbailuhdit (Bld) [#/Vol] Neutrophils [#/volume] in Blood by Automated countHigh1.8-7.7FMercy Health West HospitalNeutrophils/100 WBC Auto (Bld)Ordered By: Rd Brown on 68-34-1052Tgkhcoyqflo/100 WBC (Bld)Automated neutrophil %.Fire[facility] Medical CenterNitrite Test strip Ql (U)Ordered By: Rd Brown on 10-28-2024 Nitrite Ql (U)Nitrite [Presence] in Urine by Test stripNegativeVeterans Health AdministrationNo Panel InformationOrdered By: Rd Brown on 16-55-2079Rresjreck GFR (CKD-EPI)> 60.0 mL/MinVeterans Health Administration Pharmacy Creatinine Clearance (Yppj414.62[facility] Nucleated erythrocytes [Presence] in Blood by Automated countOrdered By: Rd Brown on 64-28-8585Ddjavozed RBC Auto Ql (Bld)Nucleated erythrocytes [Presence] in Blood by Automated count0-0.5FMercy Health West HospitalOpiates [Presence] in Urine by Screen methodOrdered By: Rd Brown on 10-28-2024 Opiates Screen Ql (U)Opiates [Presence] in Urine by Screen methodNegative [facility] Health AdministrationPhencyclidine Screen Ql (U)Ordered By: Rd Brown on 87-38-1190Akxkbwydohhqa Ql (U)Phencyclidine [Presence] in Urine by Screen methodNegativeVeterans Health AdministrationPlatelet mean volume Auto (Bld) [Entitic vol]Ordered By: Rd Brown on 02-42-0211Atbmtdpj mean volume (Bld) [Entitic vol]Platelet mean volume [Entitic volume] in Blood by Automated count6.3-10.7FMercy Health West HospitalPlatelets Auto (Bld) [#/Vol] Ordered By: Rd Brown on 07-78-4429Uwvqeqbnv (Bld) [#/Vol]Platelets [#/volume] in Blood by Automated kjrev832-332LqgpbvnstVeterans Health Administration Potassiumon 44-88-0237Xiryuymql [Moles/Vol]2.9 mmol/LOff scale low3.5-5.1The [facility] Physician GroupComment on above:Result Comment: Critical Result Called to and read back by: RYLAN BELL at: 10/28/2024 23:09:11 by:MO PERFORMED BY: [address] [address] PATHOLOGIST AIRPORT UTILITY WORKER IDANIA GODOY M.D.Performed By: #### K #### [address] [place] [address] USAPotassium [Moles/volume] in Serum or PlasmaOrdered By: Rd Brown on 63-95-2608Osktofcml [Moles/Vol]Potassium [Moles/volume] in Serum or PlasmaCritically low3.5-5.1FMercy Health West HospitalComment on above:Critical Result Called to and read back by: RYLAN BELL at: 10/28/2024 23:09:11 by:DHProtein Test strip (U) [Mass/Vol]Ordered By: Rd Brown on 32-30-7493Aormkxh (U) [Mass/Vol]Protein [Mass/volume] in Urine by Test stripHigh NegativeVeterans Health AdministrationProtein [Mass/volume] in Serum or PlasmaOrdered By: Rd Brown on 49-95-2888Vakjgbs [Mass/Vol]Protein [Mass/volume] in Serum or Plasma6.4-8.9V[facility] Health AdministrationRBC Auto (Bld) [#/Vol]Ordered By: Rd Brown on 96-59-9881NAP (Bld) [#/Vol] Erythrocytes [#/volume] in Blood by Automated countHigh3.60-5.00UC Medical Centererum or plasma albumin/globulin mass ratioOrdered By: Rd Brown 56-49-0499Sqgrpvg/Globulin [Mass ratio]Serum or plasma albumin/globulin mass ratioUC Medical Centererum or plasma anion gap determinationOrdered By: Rd Brown 73-06-3249Fltok gap [Moles/Vol]Serum or plasma anion gap determinationHigh6.0-15.0UC Medical Centererum or plasma non-glucuronidated bilirubin measurement (mass/volume)Ordered By: Rd Brown on 58-27-0792Gdsxvatfv.indirect [Mass/Vol] Serum or plasma non-glucuronidated bilirubin measurement (mass/volume)UC Medical Centerodium [Moles/volume] in Serum or PlasmaOrdered By: Rd Brown on 19-59-8243Kunrds [Moles/Vol]Sodium [Moles/volume] in Serum or Uzdyev201-395NwgotxoitUC Medical Centerpecific gravity Test strip (U) [Rel density]Ordered By: Rd Brown on 96-27-8200Eppqzvgp gravity (U) [Rel density]Specific gravity of Urine by Test strip1.001-1.030V[facility] Health AdministrationUrea nitrogen [Mass/volume] in Serum or PlasmaOrdered By: Rd Brown on 80-14-9144Xvbd nitrogen [Mass/Vol]Urea nitrogen [Mass/volume] in Serum or Plasma7-25V[facility] Health AdministrationUrine Cultureon 47-81-0901Nxlnbysy identified Cx Nom (U)75,000 colonies/ml mixed bacterial skin contaminants 2 Days PERFORMED BY: [place] [address] PATHOLOGIST AIRPORT UTILITY WORKER IDANIA GODOY M.D.NormalHca Florida St. Petersburg Hospital Physician GroupComment on above: Performed By: #### ALIREZA RED TrinidadG #### [place] [address] USAUrine cultureOrdered By: Rd Brown on 10-28-2024 Bacteria identified Cx Nom (U)Urine cultureVeterans Health Administration Urobilinogen Test strip (U) [Mass/Vol]Ordered By: Rd Brown on 10-28-2024 Urobilinogen (U) [Mass/Vol]Urobilinogen [Mass/volume] in Urine by Test stripHigh NormalVeterans Health AdministrationWBC Auto (Bld) [#/Vol]Ordered By: Rd Brown on 10-75-3833BLP (Bld) [#/Vol]Leukocytes [#/volume] in Blood by Automated countHigh3.8-11.6FMercy Health West HospitalpH Test strip (U)Ordered By: Rd Brown on 68-65-7162uP (U)pH of Urine by Test strip5.0-9.0[facility] Health AdministrationActivated partial thromboplastin time (aPTT) in platelet poor plasma by coagulation aOrdered By: Ania Watson on 82-25-6898cFTZ Coag (PPP) [Time]24.7 sLow25.1-36.5FMercy Health West HospitalComment on above: A hematocrit value greater than 55% may lead to inaccurate results in coagulation testing. Patientshaving hematocrit values >55% require a special collection tube for coagulation studies. Please contact the laboratory at [phone] for redraw instructions.Calcium [Mass/volume] in Serum or Plasma Ordered By: Ania Watson on 67-75-6161Twujzfg [Mass/Vol]9.6 mg/dL8.6-10.3 Veterans Health AdministrationCarbon dioxide, total [Moles/volume] in Serum or PlasmaOrdered By: Ania Watson on 65-27-0685WN0 [Moles/Vol]18.5 mmol/LLow 21.0-31.0V[facility] Health AdministrationChloride [Moles/volume] in Serum or PlasmaOrdered By: Ania Watson on 16-67-0322Htfsxicr [Moles/Vol]99 mmol/L 98-107V[facility] Health AdministrationCreatine kinase [Enzymatic activity/volume] in Serum or PlasmaOrdered By: Ania Watson on 30-26-6382KF [Catalytic activity/Vol]33 U/G78-945EjoodfmggVeterans Health AdministrationCreatinine [Mass/volume] in Serum or PlasmaOrdered By: Ania Watson on 08-03-2024 Creatinine [Mass/Vol]0.61 mg/dL0.60-1.20[facility] AdministrationGlucose [Mass/volume] in Serum or PlasmaOrdered By: Ania Watson on 93-66-5426Xrcfoir [Mass/Vol]91 mg/yD32-219VschrqlcdVeterans Health AdministrationComment on above:ADA recommended reference rangeRandom Glucose Reference Range is dependent on time and content of last meal. Glucose of more than 200 mg/dL in a nonstressed, ambulatory subject supports the diagnosisof Diabetes Mellitus.INR in Platelet poor plasma by Coagulation assayOrdered By: Ania Watson on 73-07-6805QVY Coag (PPP) [Relative time]1.2 {INR}[facility] Health AdministrationComment on above:INR Therapeutic Range A) Pre- and [...] peptide B [Mass/Vol]Ordered By: Ania Watson on 82-48-0383Xxdrrgjyxol peptide B (Bld) [Mass/Vol]19.0 pg/mL5-100V[facility] Health AdministrationNo Panel InformationOrdered By: Ania Watson on 57-73-0281Cmifeglnr GFR (CKD-EPI)> 60.0 mL/MinVeterans Health Administration Pharmacy Creatinine Clearance (Awiq224.09[facility] Potassium [Moles/volume] in Serum or PlasmaOrdered By: Ania Watson on 87-20-3229Vzpxfwpoj [Moles/Vol]3.5 mmol/L3.5-5.1FMercy Health West HospitalComment on above:Hemolysis is present at a level that could interfere with the result.Contact lab if redraw is requiredProthrombin time (PT)Ordered By: Ania Watson on 09-08-4740IZ Coag (PPP) [Time]13.3 sHigh9.0-12.9V[facility] Health AdministrationComment on above:A hematocrit value greater than 55% may lead to inaccurate results in coagulation testing. Patientshaving hematocrit values >55% require a special collection tube for coagulation studies. Please c ontact the laboratory at [phone] for redraw instructions.Serum or plasma anion gap determinationOrdered By: Ania Watson on 21-57-6984Ylche gap [Moles/Vol]20.0 mmol/LHigh6.0-15.0UC Medical Centerodium [Moles/volume] in Serum or PlasmaOrdered By: Ania Watson on 87-80-7173Wisdlq [Moles/Vol]134 mmol/GThn610-903FmnhhyrggVeterans Health AdministrationTroponin I.cardiac [Mass/volume] in Serum or Plasma by Detection limit <= 0.01 ng/Ordered By: Ania Watson on 47-06-4553Oxecbzrt I.cardiac DL <= 0.01 ng/mL [Mass/Vol] 7.0 pg/mL0.0-15.0V[facility] Health AdministrationUrea nitrogen [Mass/volume] in Serum or PlasmaOrdered By: Ania Watson on 57-60-1758Xgbq nitrogen [Mass/Vol] 20 mg/dL7-25Veter[facility] Health AdministrationB hCG Qualon 72-98-7871Aazf HCG ( test) QlNegativeNormalKnox Community HospitalComment on above: Performed By: #### [id number] #### [facility] [address] [place], [place] [address]OJFkl 98-31-0190Hsjxw gap [Moles/Vol]14 mmol/LNormal6-16Kn[facility] Community HospitalComment on above:Performed By: #### [id number] #### [facility] [address] [place], [place] [address]Yqnofit [Mass/Vol]9.7 mg/dLNormal8.9-11.1FSalem Regional Medical CenterComment on above:Performed By: #### [id number] #### [facility] [address], [place] [address]Fxhfqooa [Moles/Vol]102 mmol/WHivmtz883-715WdqohzKnox Community HospitalComment on above:Performed By: #### [id number] #### [facility] [address] [place], [place] [address]FM1 [Moles/Vol]24 mmol/NKvyhwh34-37IhslwpKnox Community Hospital Comment on above:Performed By: #### [id number] #### [facility] [address] [place], [place] [address]Ssjzmddmxe [Mass/Vol]0.7 mg/dLNormal0.5-1.3FSalem Regional Medical CenterComment on above:Performed By: #### [id number] #### [facility] [address] [place], [place] [address]Xshlyau [Mass/Vol]96 mg/aVNfsxrf62-819SdgjuhKnox Community HospitalComment on above:Performed By: #### [id number] #### [facility] [address], [place] [address]Tdotcousd [Moles/Vol]3.3 mmol/LLow3.5-5.3FSalem Regional Medical CenterComment on above:Performed By: #### [id number] #### [facility] [address] [place], [place] [address]Wqsxlv [Moles/Vol]137 mmol/NShkjxx972-891QqskqlKnox Community HospitalComment on above:Performed By: #### [id number] #### [facility] [address], [place] [address]Bxdd nitrogen [Mass/Vol]18 mg/dLNormal5-21Knox Community HospitalComment on above:Performed By: #### [id number] #### [facility] [address] [place], [place] [address]Lyeb nitrogen/Creatinine [Mass ratio]26 No AbhgjGybi59-68WoeeukKnox Community HospitalComment on above:Performed By: #### [id number] #### [facility] [address], [place] [address]ABB w/ Auto Diffon 51-01-5160Ueooagkam/100 WBC (Bld)0.3 %Normal 0.0-2.0[facility] HospitalComment on above:Performed By: #### [id number] #### [facility] [address], [place] [address]Wbukxovro/Leukocytes Auto (Bld) [Pure # fraction]0.1 E9/LNormal 0.0-0.2FSalem Regional Medical CenterComment on above:Performed By: #### [id number] #### [facility] [address] [place] [address] 46912Zjtfiyihjbl (Bld) [#/Vol]0.1 E9/LNormal0.0-0.5FSalem Regional Medical CenterComment on above:Performed By: #### [id number] #### [facility] [address], [place] [address]Vtcklcykkuf/100 WBC (Bld)0.4 %Normal0.0-8.0[facility] HospitalComment on above:Performed By: #### [id number] #### [facility] [address], [place] [address]Teqsqtdsuxb distribution width (RBC) [Ratio]13.3 %Normal 10.9-14.2FSalem Regional Medical CenterComment on above:Performed By: #### [id number] #### [facility] [address] [place] [address] 830[address]Sxvwoqaykt (Bld) [Volume fraction]43.9 %Bpjzjr00.0-46.0[facility] HospitalComment on above:Performed By: #### [id number] #### [facility] [address] [place] [address] 648[address]Rqneluxrdl (Bld) [Mass/Vol]14.5 g/gSPkvnad52.0-16.0[facility] HospitalComment on above:Performed By: #### [id number] #### [facility] [address] [place] [address] 036[address]Zpdwhyepzoc (Bld) [#/Vol]2.3 E9/LNormal1.0-4.0[facility] HospitalComment on above:Performed By: #### [id number] #### [facility] [address] [place] [address] 89246Xliuvjylrvp/100 WBC (Bld)13.7 %Low14.0-50.0[facility] HospitalComment on above:Performed By: #### [id number] #### [facility] [address] [place] [address] 909[address]OMH (RBC) [Entitic mass]28.3 ogFxeyol61.0-34.0[facility] HospitalComment on above:Performed By: #### [id number] #### [facility] [address] [place] [address] 823[address]DZZM (RBC) [Mass/Vol]33.0 g/vZBnskha75.4-36.0[facility] HospitalComment on above:Performed By: #### [id number] #### [facility] [address] [place] [address] 33778PIC (RBC) [Entitic vol]85.8 mPCddbmy60.0-100.0[facility] HospitalComment on above:Performed By: #### [id number] #### [facility] [address] [place] [address] 45398Xltythjji (Bld) [#/Vol]1.2 E9/LHigh0.2-1.0[facility] HospitalComment on above:Performed By: #### [id number] #### [facility] [address] [place] [address] 46015Irtxwiwxlrg (Bld) [#/Vol]13.1 E9/LHigh2.0-7.5FSalem Regional Medical CenterComment on above:Performed By: #### [id number] #### [facility] [address] [place] [address] 88456Hhqumemdxbv/100 WBC (Bld)78.5 %High36.0-75.0[facility] HospitalComment on above:Performed By: #### [id number] #### [facility] [address] [place] [address] 71355Borctmhf mean volume (Bld) [Entitic vol]8.2 fLNormal6.4-10.8 [facility] HospitalComment on above:Performed By: #### [id number] #### [facility] [address] [place] [address] 54316Wuklthlpp (Bld) [#/Vol]246.0 E9/YSbgheq403.0-500.0[facility] HospitalComment on above:Performed By: #### [id number] #### [facility] [address] [place] [address] 867[address]CLD (Bld) [#/Vol]5.1 E12/LNormal4.3-5.9[facility] HospitalComment on above:Performed By: #### [id number] #### [facility] [address] [place] [address] 91[address]SQR corrected for nucl RBC Auto (Bld) [#/Vol]16.7 E9/LHigh 4.0-11.0[facility] Community HospitalComment on above:Result Comment: Peripheral smear review performed.Performed By: #### [id number] #### [facility] [address], [place] [address]AR Clinical Summaryon [id number] Clinical SummaryED Clinical Summary [address] [address] ED Clinical Summary Person Information Name: PILI PARIKH/[place] Age: 19 Years : 2005 Sex: Female Language: Kenyan PCP: MODESTA CHAND CNP Marital Status: Single [...] 08/01/2024 12:09:48 08/01/2024 12:09:48 ADDRESS: [address] [facility] [id number] PHYS DOC NOTES: MEDICAL INFORMATION: Prescriptions Given: New Medications [id number], [address], [place] [id number], [phone] potassium chloride (potassium chloride 20 mEq ER [...] Follow up: With: Address: When: MODESTA CHAND [address] [place] [phone] [employer] (1) In 3 days 08/04/2024 Comments: Make sure to fill the prescriptions that was prescribed from [facility]. Fill the new prescription for potassium. Follow-up with your primary doctor as discussed. Return to the emergency room if your vomiting recurs, abdominal pain recurs or any new symptoms. DIAGNOSIS: 1:Vomiting and diarrhea; 2:Hypokalemia; 3:Leukocytosis; Diarrhea, unspecified [facility] CenterED Note-Physicianon [id number] Note-Physician ED Note-Physician Basic Information Time Seen: August Bermudez M.D. 08/01/2024 09:27 Chief Complaint just left [facility], seen multiple times for n/v lightheaded. hx cyclic vomiting, state its not that. has medication at [facility] but wanted to come here instead [...] sick contact. The patient was at [facility] and they did send medication to [facility] however she feels she is dehydrated. [...] and Complexity of Problems Differential Diagnosis: [] [facility] Data External documents reviewed: [] My [...] 4 tab(s), Refills(s) 0, Pharmacy: [facility]/pharmacy #[id number], 157, cm, 08/01/24 9:34:00 EDT, [...] improved Discharge Disposition Dis (more content not included)...[facility] CenterComment on above:Result Comment: Electronically Signed By: August Bermudez M.D.\.br\Date and Time Signed: 08/01/2411:58 EDTED Patient Summaryon [id number] Patient SummaryED Patient Summary [address] [address] Patient Discharge Instructions Person Information Name: PILI PARIKH Age: 19 Years Arrival Date: 08/01/2024 09:23:00 Discharge Diagnosis: 1:Vomiting and diarrhea; 2:Hypokalemia; 3:Leukocytosis; Diarrhea, unspecified Primary Care Physician: MODESTA CHAND CNP Provider Information Primary Provider: August Bermudez M.D. Advanced Excel Expert:None The exam and treatment you received in the Emergency Department were for an urgent problem and are not intended as complete care. It is important that you follow up with a doctor, nurse practitioner,or physician?s acute care certified nursing assistant for ongoing care. If your symptoms become worse or you do not improve as expected and you are unable to reach your usual health care provider, you should return to the Emergency Department. We are available 24 hours a day. PILI PARIKH has been given the following list of patient education materials, prescriptions andfollow-up instructions: Follow-up Instructions: With: Address: When: MODESTA CHAND [address] [place] [address] [phone] Business (1) In 3 days 08/04/2024 Comments: Make sure to fill the prescriptions that was prescribed from [facility]. Fill the new prescription for potassium. Follow-up [...] opioids can be used to help relieve ztgtgidk-dg-ydhzea pain and are often prescribed following a [...] your community drug take- back program or [employer] mail-back program, or flush them down the to (more content not included)...NormalKnox Community HospitalHep Func Panelon 61-66-9175Btenmox [Mass/Vol]5.1 g/dLHigh3.3-5.0[facility] Comment on above:Performed By: #### [id number] #### [facility] [address], [place] [address]Uygwllj/Globulin (S) [Mass conc ratio]1.2Azxwrh8.1-2.2FSalem Regional Medical CenterComment on above:Performed By: #### [id number] #### [facility] [address], [place] [address]QZT [Catalytic activity/Vol]75 Int._Unit/UCxiulh07-61WvfpyxKnox Community HospitalComment on above:Performed By: #### [id number] #### [facility] [address], [place] [address]JCG No additional P-5'-P [Catalytic activity/Vol]45 Int._Unit/L Normal6-46[facility] Community HospitalComment on above:Performed By: #### [id number] #### [facility] [address], [place] [address]SQX [Catalytic activity/Vol]25 Int._Unit/LNormal5-43[facility] HospitalComment on above:Performed By: #### [id number] #### [facility] [address], [place] [address]Lygjabjro [Mass/Vol]0.9 mg/dLNormal0.0-1.1FSalem Regional Medical CenterComment on above:Performed By: #### [id number] #### [facility] [address], [place] [address]Plratixbf.direct [Mass/Vol]0.1 mg/dLNormal0.0-0.4FSalem Regional Medical CenterComment on above:Performed By: #### [id number] #### [facility] [address] [place] [address]Diphhdwyw.indirect [Mass or moles/Vol]0.8 mg/dLNormal0.1-0.9 [facility] HospitalComment on above:Performed By: #### [id number] #### [facility] [address] [place] [address]Embhuejt (S) [Mass/Vol]3.0 g/dLNormal1.4-4.0[facility] HospitalComment on above:Performed By: #### [id number] #### [facility] [address] [place] [address]Wgjhneq [Mass/Vol]8.1 g/dLHigh6.0-7.8[facility] HospitalComment on above:Performed By: #### [id number] #### [facility] [address], [place] [address]Lzimci Levelon 83-09-9692Kmecpi [Catalytic activity/Vol]27 U/L Lfglma47-02QaddafKnox Community HospitalComment on above:Performed By: #### [id number] #### [facility] [address], [place] [address]Tfyspqmvanm 01-52-1345Idmgjnnan [Mass/Vol]2.2 mg/dLNormal 1.3-2.4FSalem Regional Medical CenterComment on above:Performed By: #### [id number] #### [facility] [address], [place] [address]OG & PTTon 25-41-9379eUNG Coag (PPP) [Time]31.2 second(s)Normal 25.1-36.5Fre[facility] Western MarylandComment on above:Result Comment: Parameter 15 days - [...] the same coagulation reagent and instrumentation as [facility]. Currently there are no coagulation studies available worldwide for children to 14 days, andno normal ranges. Heparin therapeutic range (represented by Anti-Factor Xa activity of 0.2 - 0.4 U/mL) corresponds to PTT of 56.6 - 109.0 sec.Performed By: #### [id number] #### [facility] [address], [place] [address]IVP Coag (PPP) [Relative time]1.11 {INR}Invalid Interpretation CodeGinoKennedy Krieger InstituteComment on above:Result Comment: INR results are specifically intended to assess patients stabilized on long-term Anticoagulation therapy suggested INR?s ?Less Intensive Anticoagulation? 2.0 ? 3.0 Conventional Range 3.0 ? 4.5Performed By: #### [id number] #### [facility] [address], [place] [address]TP Coag (PPP) [Time]12.5 second(s)Normal9.4-12.5Fre[facility] MarylandComment on above:Result Comment: 15 days - 4 [...] the same coagulation reagent and instrumentation as [facility]. Currently there are no coagulation studies available worldwide for children to 14 days, andno normal ranges.Performed By: #### [id number] #### [facility] [address], [place] [address]Haooyuvm 0 Hr.on 42-84-3030Abcfnuok HS5.20 pg/mLLow10.10-27.10 [facility] HospitalComment on above:Result Comment: The 95% CI (Confidence Interval) PPV (Positive Predictive Value) for myocardial infarction in females is 38 pg/mL, in males 51 pg/mL. The results should be used in conjunction with clinical conditions of myocardial infarction. (Access High Sensitivity Troponin I Instructions For Use, Sugar Sundar, June 2018)Performed By: #### [id number] #### [facility] [address], [place] [address]rVQIgs 24-31-1305rAMB773 mL/min/1.73 m2Munwrr>=59[facility] Community HospitalComment on above:Order Comment: Order added by Discern Expert. Performed By: #### [id number] #### [facility] [address], [place] [address]MXEal 41-25-8010Yjqmx gap [Moles/Vol]13 mmol/LNormal6-16[facility] HospitalComment on above:Performed By: #### [id number] #### [facility] [address], [place] [address]Svspuyv [Mass/Vol]9.4 mg/dLNormal8.9-11.1FSalem Regional Medical CenterComment on above:Performed By: #### [id number] #### [facility] [address], [place] [address]Ethvkvej [Moles/Vol]107 mmol/UFwymdm571-544WnfsuvKnox Community HospitalComment on above:Performed By: #### [id number] #### [facility] [address], [place] [address]SS7 [Moles/Vol]25 mmol/GCecjxc98-49TrrcioKnox Community Hospital Comment on above:Performed By: #### [id number] #### [facility] [address], [place] [address]Eyzijruvye [Mass/Vol]0.8 mg/dLNormal0.5-1.3FSalem Regional Medical CenterComment on above:Performed By: #### [id number] #### [facility] [address], [place] [address]Sjtthei [Mass/Vol]89 mg/pRKeokfh83-960LmetweKnox Community HospitalComment on above:Performed By: #### [id number] #### [facility] [address], [place] [address]Joixeyjvx [Moles/Vol]3.6 mmol/LNormal3.5-5.3FSalem Regional Medical CenterComment on above:Performed By: #### [id number] #### [facility] [address], [place] [address]Ubolhm [Moles/Vol]141 mmol/FXsrszw918-549DvthutKnox Community HospitalComment on above:Performed By: #### [id number] #### [facility] [address], [place] [address]Kiap nitrogen [Mass/Vol]19 mg/dLNormal5-21Kn[facility] HospitalComment on above:Performed By: #### [id number] #### [facility] [address], [place] [address]Kgsv nitrogen/Creatinine [Mass ratio]24 No EhlvgOich74-62IgylasKnox Community HospitalComment on above:Performed By: #### [id number] #### [facility] [address], [place] [address]UYQ w/ Auto Diffon 83-59-6780Ftadsvcvp/100 WBC (Bld)0.4 %Normal 0.0-2.0[facility] HospitalComment on above:Performed By: #### [id number] #### [facility] [address] [place] [address]Evvipwqhg/Leukocytes Auto (Bld) [Pure # fraction]0.1 E9/LNormal 0.0-0.2FSalem Regional Medical CenterComment on above:Performed By: #### [id number] #### [facility] [address] [place] [address]Rssjimeicfl (Bld) [#/Vol]0.1 E9/LNormal0.0-0.5FSalem Regional Medical CenterComment on above:Performed By: #### [id number] #### [facility] [address] [place] [address]Tsjtrbpdqgx/100 WBC (Bld)0.5 %Normal0.0-8.0[facility] HospitalComment on above:Performed By: #### [id number] #### [facility] [address] [place] [address]Tmdzxuwwqqj distribution width (RBC) [Ratio]13.2 %Normal 10.9-14.2FSalem Regional Medical CenterComment on above:Performed By: #### [id number] #### [facility] [address] [place] [address]Vfmqfyhjlt (Bld) [Volume fraction]39.6 %Qkyjst86.0-46.0[facility] HospitalComment on above:Performed By: #### [id number] #### [facility] [address] [place] [address]Znpzsayvok (Bld) [Mass/Vol]13.7 g/aCHzhpuh89.0-16.0[facility] HospitalComment on above:Performed By: #### [id number] #### [facility] [address] [place] [address]Bzmpoqlvcyj (Bld) [#/Vol]2.3 E9/LNormal1.0-4.0[facility] HospitalComment on above:Performed By: #### [id number] #### [facility] [address] [place] [address]Jcuamoevzjd/100 WBC (Bld)14.1 %Nxafsw80.0-50.0[facility] HospitalComment on above:Performed By: #### [id number] #### [facility] [address] [place] [address]LLM (RBC) [Entitic mass]29.4 bmGdtfvt32.0-34.0[facility] HospitalComment on above:Performed By: #### [id number] #### [facility] [address] [place] [address]UKGH (RBC) [Mass/Vol]34.5 g/cWCutwtz31.4-36.0[facility] HospitalComment on above:Performed By: #### [id number] #### [facility] [address] [place] [address] 29224ZKK (RBC) [Entitic vol]85.3 tDOmxsqk76.0-100.0[facility] HospitalComment on above:Performed By: #### [id number] #### [facility] [address] [place] [address]Thgaafqix (Bld) [#/Vol]1.2 E9/LHigh0.2-1.0[facility] HospitalComment on above:Performed By: #### [id number] #### [facility] [address] [place] [address]Fddyqccpdif (Bld) [#/Vol]12.6 E9/LHigh2.0-7.5FSalem Regional Medical CenterComment on above:Performed By: #### [id number] #### [facility] [address] [place] [address]Mtnunxoiity/100 WBC (Bld)77.5 %High36.0-75.0[facility] HospitalComment on above:Performed By: #### [id number] #### [facility] [address], [place] [address]Juqsoutn796.0 E9/RQijqfu685.0-500.0[facility] Comment on above:Performed By: #### [id number] #### [facility] [address], [place] [address]Mpmodoqa mean volume (Bld) [Entitic vol]8.1 fLNormal6.4-10.8 [facility] HospitalComment on above:Performed By: #### [id number] #### [facility] [address], [place] [address]RGT (Bld) [#/Vol]4.7 E12/LNormal4.3-5.9[facility] HospitalComment on above:Performed By: #### [id number] #### [facility] [address], [place] [address]OZV corrected for nucl RBC Auto (Bld) [#/Vol]16.2 E9/LHigh 4.0-11.0[facility] HospitalComment on above:Performed By: #### [id number] #### [facility] [address] [place] [address]HVNEABEZEYifetli By: Manish Sales on 25-57-3063Ghtknvm [Mass/Vol]4.7 g/dLNormal3.3 - 5.0 gm/dLRemisol ChemAlbumin/Globulin [Mass ratio] 1.7 {ratio}Normal1.1 - 2.2Remisol ChemALP [Catalytic activity/Vol]73 [iU]/d Pjhody66 - 98 Int._Unit/LRemisol ChemALT No additional P-5'-P [Catalytic activity/Vol]46 [iU]/dNormal6 - 46 Int._Unit/LRemisol ChemAnion gap [Moles/Vol] 13 mmol/LNormal6 - 16 mEq/LRemisol ChemAST [Catalytic activity/Vol]24 [iU]/d Normal5 - 43 Int._Unit/LRemisol ChemBilirubin [Mass/Vol]0.7 mg/dLNormal0.0 - 1.1 mg/dLRemisol ChemBilirubin.direct [Mass/Vol]0.1 mg/dLNormal0.0 - 0.4 mg/dL Remisol ChemBilirubin.indirect [Mass or moles/Vol]0.6 mg/dLNormal0.1 - 0.9 mg/dL Remisol ChemCalcium [Mass/Vol]9.4 mg/dLNormal8.9 - 11.1 mg/dLRemisol Chem Chloride [Moles/Vol]107 mmol/JSnukgr062 - 111 mmol/LRemisol ChemCO2 [Moles/Vol] 25 mmol/OKeijtc14 - 31 mmol/LRemisol ChemCreatinine [Mass/Vol]0.8 mg/dLNormal0.5 - 1.3 mg/dLRemisol GqqwnOJK904 mL/min/1.73 r5Qguick>=59mL/min/1.73 u5Kkgssbf ChemGlobulin (S) [Mass/Vol]2.8 g/dLNormal1.4 - 4.0 gm/dLRemisol ChemGlucose [Mass/Vol]89 mg/bTHzjull97 - 199 mg/dLRemisol ChemLipase [Catalytic activity/Vol]10 U/LLow13 - 58 unit/LRemisol ChemMagnesium [Mass/Vol]2.2 mg/dL Normal1.3 - 2.4 mg/dLRemisol ChemPotassium [Moles/Vol]3.6 mmol/LNormal3.5 - 5.3 mmol/LRemisol ChemProtein [Mass/Vol]7.5 g/dLNormal6.0 - 7.8 gm/dLRemisol Chem Sodium [Moles/Vol]141 mmol/VSlecwr144 - 145 mmol/LRemisol ChemUrea nitrogen [Mass/Vol]19 mg/dLNormal5 - 21 mg/dLRemisol ChemUrea nitrogen/Creatinine [Mass ratio]24 mg/uwIaxa47 - 20Remisol ChemED Clinical Summaryon [id number] Clinical SummaryED Clinical Summary [address] [address] ED Clinical Summary Person Information Name: PILI PARIKH/[place] Age: 19 Years : 2005 Sex: Female Language: Kenyan PCP: MODESTA ARCHIBALD Marital Status: Single Visit [...] 07/30/2024 22:55:49 07/30/2024 22:55:49 07/30/2024 22:55:49 ADDRESS: [address] [place] [id number] PHYS DOC NOTES: MEDICAL INFORMATION: Prescriptions Given: New Medications [facility]/pharmacy #[id number], [address], [place] [id number], [phone] ondansetron (Zofran ODT 4 mg Tab-Dis) 1 Tablets By Mouth every 8 hours as needed Nausea/Vomiting. Refills: 0. Medications to Continue Taking That Have Changed [facility]/pharmacy #[id number], [address], [place] [id number], [phone] START: promethazine (Phenergan 12.5 mg Supp) 1 [...] Follow up: With: Address: When: FAMILIA ROSESON [facility] [address] [address] Business (1) In 3 days 08/02/2024 DIAGNOSIS: AP (abdominal pain); N&V (nausea and vomiting)[facility] ED Note-Physicianon [id number] Note-PhysicianED Note-Physician Basic Information Time Seen: Dustin [...] and Complexity of Problems Differential Diagnosis: [] [facility] Data External documents reviewed: N/A My [...] PRN Nausea/Vomiting, # 16 tab(s), Refills(s) 0, [id number] 157, cm, 07/30/24 19:37:00 EDT, Height/Length Dosing, 96.1, kg, 07/30/24 19:37:00 EDT, Weight Dosing promethazine, 12.5 mg = 1 tab(s), Oral, q8hr, PRN as needed for nausea/vomiting, second line, # 10 tab(s), Refills(s) 0, [id number], 157, cm, 07/30/24 19:37:00 EDT, Height/Length Dosing, 96.1, kg, 07/30/24 19:37:00 EDT, Weight Dosing promethazine, 12.5 mg = 1 supp, Rectal, q8hr, PRN as needed for nausea/vomiting, 3rd line, # 6 EA, Refills(s) 0, [id number], 157, cm, 07/30/24 19:37:00 EDT, [...] Level Saline Lock Insert Medications Administered Given frub93VSE [F] 1000 mg + GenDil 100 mL, IV Piggyback famotidine 10 mg/mL IV Lisa, 20 mg, IV Push NS 1000 ml Bolus, 1000 mL, IV euzffp17Akjylgygw [F] 12.5 mg + Sodium Chloride 0.9% IV Lisa 50 mL [F] 50 mL, IV Piggyback Disposition Plan Discharge Prescription List Prescriptions Phenergan 12.5 mg Supp, 12.5 mg= 1 supp, Rectal, q8hr, PRN promethazine 12.5 mg oral tablet, 12.5 mg= 1 tab(s), Oral, q8hr, PRN Zofran ODT 4 mg Tab-Dis, 4 mg= 1 tab(s), Or (more content not included)...Normal [facility] HospitalComment on above:Result Comment: Electronically Signed By: Dustin Villalobos DO\.br\Date and Time Signed: 07/30/24 22:50 EDTED Patient Summaryon [id number] Patient SummaryED Patient Summary [address] [address] Patient Discharge Instructions Person Information Name: PILI PARIKH Age: 19 Years Arrival Date: 07/30/2024 19:26:13 Discharge Diagnosis: AP (abdominal pain); N&V (nausea and vomiting) Primary Care Physician: MODESTA ARCHIBALD Provider Information Primary Provider: Dustin Villalobos DO Advanced Excel Expert:None The exam and treatment you received in the Emergency Department were for an urgent problem and are not intended as complete care. It is important that you follow up with a doctor, nurse practitioner,or physician?s acute care certified nursing assistant for ongoing care. If your symptoms become worse or you do not improve as expected and you are unable to reach your usual health care provider, you should return to the Emergency Department. We are available 24 hours a day. PILI PARIKH has been given the following list of patient education materials, prescriptions andfollow-up instructions: Follow-up Instructions: With: Address: When: FAMILIA CHAND [facility] [address] [phone] Business (1) In 3 days 08/02/2024 In the event that this physician does not participate in your insurance network, please consult with your insurance company to find a nearby participating provider. Patient Education Materials: Nausea and Vomiting, Adult A MESSAGE TO ALL PATIENTS REGARDING OPIOIDS PRESCRIPTION OPIOIDS: WHAT YOU NEED TO KNOW Prescription opioids can be used to help relieve saorboyq-fc-ghoefo pain and are often prescribed following a [...] your community drug take- back program or [employer] mail-back program, or flush them down the toilet, following guidance from the Food and Drug Administration (www.fda.gov/Drugs/ResourcesForYou). ? Visit www.cdc.gov/drugoverdose to learn about the risks of opioids abuse and overdose. ? If you believe you may be struggling with addiction, tell your health care worker and ask for guidance or call [facility] (more content not included)...[facility] CenterHEMATOLOGYOrdered By: SYSTEM SYSTEM on 13-85-6201Wuoitjtux/100 WBC (Bld)0.4 %Normal0.0 - 2.0 %Remisol HemeBasophils/Leukocytes Auto (Bld) [Pure # fraction]0.1 E9/LNormal0.0 - 0.2 E9/LRemisol HemeEosinophils (Bld) [#/Vol]0.1 E9/LNormal0.0 - 0.5 E9/LRemisol HemeEosinophils/100 WBC (Bld)0.5 %Normal0.0 - 8.0 %Remisol HemeErythrocyte distribution width (RBC) [Ratio]13.2 %Ufztti54.9 - 14.2 %Remisol HemeHematocrit (Bld) [Volume fraction]39.6 %Sezett18.0 - 46.0 %Remisol HemeHemoglobin (Bld) [Mass/Vol]13.7 g/bVZphqlt99.0 - 16.0 gm/dLRemisol HemeLymphocytes (Bld) [#/Vol] 2.3 E9/LNormal1.0 - 4.0 E9/LRemisol HemeLymphocytes/100 WBC (Bld)14.1 %Normal 14.0 - 50.0 %Remisol HemeMCH (RBC) [Entitic mass]29.4 nmAonnkj15.0 - 34.0 pg Remisol HemeMCHC (RBC) [Mass/Vol]34.5 g/eKNtqvoz35.4 - 36.0 gm/dLRemisol HemeMCV (RBC) [Entitic vol]85.3 tYTmjrbq48.0 - 100.0 fLRemisol HemeMonocytes (Bld) [#/Vol]1.2 E9/LHigh0.2 - 1.0 E9/LRemisol HemeMonocytes/100 WBC (Bld)7.5 %Normal 4.0 - 14.0 %Remisol HemeNeutrophils (Bld) [#/Vol]12.6 E9/LHigh2.0 - 7.5 E9/L Remisol HemeNeutrophils/100 WBC (Bld)77.5 %High36.0 - 75.0 %Remisol HemePlatelet 260.0 E9/KNdxsbc459.0 - 500.0 E9/LRemisol HemePlatelet mean volume (Bld) [Entitic vol]8.1 fLNormal6.4 - 10.8 fLRemisol HemeRBC (Bld) [#/Vol]4.7 E12/L Normal4.3 - 5.9 E12/LRemisol HemeWBC corrected for nucl RBC Auto (Bld) [#/Vol] 16.2 E9/LHigh4.0 - 11.0 E9/LRemisol HemeHep Func Panelon 68-78-9168Fpogrso [Mass/Vol]4.7 g/dLNormal3.3-5.0[facility] MarylandComment on above: Performed By: #### [id number] #### Christophe [facility] [address], [place] [address]Wtjhnme/Globulin (S) [Mass conc ratio]1.3Reqbcl4.1-2.2Fisher [facility]pmc Western MarylandComment on above:Performed By: #### [id number] #### Christophe [facility] [address], [place] [address]WGV [Catalytic activity/Vol]73 Int._Unit/VUznsyo78-12GbsjdiKnox Community HospitalComment on above:Performed By: #### [id number] #### [facility] [address] [place] [address]NMF No additional P-5'-P [Catalytic activity/Vol]46 Int._Unit/L Normal6-46[facility] HospitalComment on above:Performed By: #### [id number] #### [facility] [address] [place] [address]FQM [Catalytic activity/Vol]24 Int._Unit/LNormal5-43Kn[facility] HospitalComment on above:Performed By: #### [id number] #### [facility] [address] [place] [address]Dxlhakqzn [Mass/Vol]0.7 mg/dLNormal0.0-1.1FSalem Regional Medical CenterComment on above:Performed By: #### [id number] #### [facility] [address] [place] [address]Hfkbwylun.direct [Mass/Vol]0.1 mg/dLNormal0.0-0.4FSalem Regional Medical CenterComment on above:Performed By: #### [id number] #### [facility] [address] [place] [address]Znctxhshe.indirect [Mass or moles/Vol]0.6 mg/dLNormal0.1-0.9 [facility] HospitalComment on above:Performed By: #### [id number] #### [facility] [address] [place] [address]Vnvwkpwl (S) [Mass/Vol]2.8 g/dLNormal1.4-4.0[facility] HospitalComment on above:Performed By: #### [id number] #### [facility] [address] [place] [address]Hatrnso [Mass/Vol]7.5 g/dLNormal6.0-7.8[facility] HospitalComment on above:Performed By: #### [id number] #### Christophe [facility] [address], [place] [address]Wjisbp Levelon 55-88-4023Pyncoe [Catalytic activity/Vol]10 U/L Scr60-22EwvmnyKnox Community HospitalComment on above:Performed By: #### [id number] #### Saeed [facility] [address], [place] [address]Htuylgvuxgv 52-00-3543Luxnltrab [Mass/Vol]2.2 mg/dLNormal 1.3-2.4Fisher [facility]c Western MarylandComment on above:Performed By: #### [id number] #### Saeed [facility] [address], [place] [address]oYPFny 70-63-3690aMBI812 mL/min/1.73 d2Fulucs>=59Kn[facility] Community HospitalComment on above:Order Comment: Order added by Discern Expert. Performed By: #### [id number] #### Saeed [facility] [address], [place] [address]Qetgahj aminotransferase [Enzymatic activity/volume] in Serum or PlasmaOrdered By: Femi Benitez on 32-92-1515TCM [Catalytic activity/Vol]25 U/L 7-52[facility] Health AdministrationAlbumin [Mass/volume] in Serum or Plasma by Bromocresol green (BCG) dye binding methoOrdered By: Femi Benitez on 03-18-2024 Albumin BCG dye [Mass/Vol]5.3 g/dL3.5-5.7FMercy Health West Hospital Alkaline phosphatase [Enzymatic activity/volume] in Serum or PlasmaOrdered By: Femi Benitez on 68-42-6552HCZ [Catalytic activity/Vol]82 U/P72-421EygblgyfoVeterans Health AdministrationAspartate aminotransferase [Enzymatic activity/volume] in Serum or PlasmaOrdered By: Femi Benitez on 17-01-0329BRW [Catalytic activity/Vol] 23 U/S67-29SwcxrklzwVeterans Health AdministrationBasophils Auto (Bld) [#/Vol]Ordered By: Femi Benitez on 32-12-1663Hvqxqbonb (Bld) [#/Vol]0.1 10*3/uL0.0-0.2FMercy Health West HospitalBasophils/100 WBC Auto (Bld)Ordered By: Femi Benitez on 83-29-2483Usquwkxbx/100 WBC (Bld)0.4 %.[facility] Bilirubin.total [Mass/volume] in Serum or PlasmaOrdered By: Femi Benitez on 01-91-7694Ijinbeafi [Mass/Vol]0.9 mg/dL0.3-1.0[facility] Calcium [Mass/volume] in Serum or PlasmaOrdered By: Femi Benitez on 03-18-2024 Calcium [Mass/Vol]10.4 mg/dL8.6-10.3FMercy Health West HospitalCarbon dioxide, total [Moles/volume] in Serum or PlasmaOrdered By: Femi Benitez on 12-29-4781VH1 [Moles/Vol]18.4 mmol/L21.0-31.0[facility] Chloride [Moles/volume] in Serum or PlasmaOrdered By: Femi Benitez on 03-18-2024 Chloride [Moles/Vol]94 mmol/O61-679EbaajfwwmVeterans Health Administration Choriogonadotropin.beta subunit [Units/volume] in Serum or PlasmaOrdered By: Femi Benitez on 76-02-2000XGA.beta subunit QnNegativeVeterans Health AdministrationCreatinine [Mass/volume] in Serum or PlasmaOrdered By: Femi Benitez on 42-68-3286Wkdmktqqvv [Mass/Vol]0.80 mg/dL0.60-1.20[facility] AdministrationEosinophils Auto (Bld) [#/Vol]Ordered By: Femi Benitez on 03-18-2024 Eosinophils (Bld) [#/Vol]0.4 10*3/uL0.0-0.45[facility] Eosinophils/100 WBC Auto (Bld)Ordered By: Femi Benitez on 03-18-2024 Eosinophils/100 WBC (Bld)2.3 %.[facility] AdministrationErythrocyte distribution width Auto (RBC) [Ratio]Ordered By: Femi Benitez on 03-18-2024 Erythrocyte distribution width (RBC) [Ratio]14.3 %11.9-15.3FMercy Health West HospitalGlobulin Calc (S) [Mass/Vol]Ordered By: Femi Benitez on 03-18-2024 Globulin (S) [Mass/Vol]2.8 g/dLVeterans Health AdministrationGlucose [Mass/volume] in Serum or PlasmaOrdered By: Femi Benitez on 64-98-5976Zavakpi [Mass/Vol]95 mg/oS28-373XkixvafkvVeterans Health AdministrationComment on above:ADA recommended reference rangeRandom Glucose Reference Range is dependent on time and content of last meal. Glucose of more than 200 mg/dL in a nonstressed, ambulatory subject supports the diagnosisof Diabetes Mellitus.Hematocrit Auto (Bld) [Volume fraction]Ordered By: Feim Benitez on 25-42-4577Mzdubhrwqk (Bld) [Volume fraction]48.2 %34.0-46.4FMercy Health West HospitalHemoglobin [Mass/volume] in BloodOrdered By: Femi Benitez on 83-24-6838Ikxahloxra (Bld) [Mass/Vol]16.3 g/dL11.8-15.4FMercy Health West HospitalLeukocytes [#/volume] corrected for nucleated erythrocytes in Blood by Automated coun Ordered By: Femi Benitez on 39-56-9069XUP corrected for nucl RBC Auto (Bld) [#/Vol]18.5 10*3/uL3.8-11.6FMercy Health West HospitalLymphocytes Auto (Bld) [#/Vol]Ordered By: Femi Benitez on 79-19-7477Rvfxdhifpek (Bld) [#/Vol]3.9 10*3/uL1.00-4.8[facility] AdministrationLymphocytes/100 WBC Auto (Bld) Ordered By: Femi Benitez on 34-11-1366Usegnwvhuai/100 WBC (Bld)20.9 %.[facility] AdministrationMCH Auto (RBC) [Entitic mass]Ordered By: Femi Benitez on 89-17-4231LWV (RBC) [Entitic mass]28.2 pg24.7-34.3FMercy Health West HospitalMCHC Auto (RBC) [Mass/Vol]Ordered By: Femi Benitez on 46-09-4304MWQS (RBC) [Mass/Vol]33.9 g/dL32.0-35.0Fire[facility] Medical CenterMCV Auto (RBC) [Entitic vol]Ordered By: Femi Benitez on 06-66-8581XCQ (RBC) [Entitic vol]83.2 fL 80-100[facility] AdministrationMonocyte distribution width [Entitic volume] in Blood by AutomatedOrdered By: Femi Benitez on 03-72-6276Zyzvhbgy distribution width Auto (Bld) [Entitic vol]16.34 %0.00-20.00[facility] AdministrationMonocytes Auto (Bld) [#/Vol]Ordered By: Femi Benitez on 03-18-2024 Monocytes (Bld) [#/Vol]1.4 10*3/uL0.0-0.8[facility] Monocytes/100 WBC Auto (Bld)Ordered By: Femi Benitez on 71-75-5399Avmkqynek/100 WBC (Bld)7.6 %.[facility] Health AdministrationNeutrophils Auto (Bld) [#/Vol] Ordered By: Femi Benitez on 15-83-6171Bdntzcdgnfq (Bld) [#/Vol]12.7 10*3/uL1.8-7.7 [facility] AdministrationNeutrophils/100 WBC Auto (Bld)Ordered By: Femi Benitez on 09-64-0452Eakulfqxdoj/100 WBC (Bld)68.8 %.[facility] AdministrationNo Panel InformationOrdered By: Femi Benitez on 47-57-5358Zgtcqybjl GFR (CKD-EPI)> 60.0 mL/MinVeterans Health AdministrationPharmacy Creatinine Clearance (Icno313.98[facility] AdministrationNucleated erythrocytes [Presence] in Blood by Automated countOrdered By: Femi Benitez on 03-18-2024 Nucleated RBC Auto Ql (Bld)0.1 /100{WBC}0-0.5FMercy Health West Hospital Platelet mean volume Auto (Bld) [Entitic vol]Ordered By: Femi Benitez on 38-52-3809Jysqkbdw mean volume (Bld) [Entitic vol]8.5 fL6.3-10.7FMercy Health West HospitalPlatelets Auto (Bld) [#/Vol]Ordered By: Femi Benitez on 66-44-4789Jardjhnhu (Bld) [#/Vol]358 10*3/aG346-411SczhhspsoVeterans Health AdministrationPotassium [Moles/volume] in Serum or PlasmaOrdered By: Femi Benitez on 56-77-2427Woleihfzn [Moles/Vol]See comment3.5-5.1FMercy Health West HospitalComment on above:Specimen hemolyzed, redraw requestedResults calledat 2349 on 03/18/24Protein [Mass/volume] in Serum or PlasmaOrdered By: Femi Benitez on 43-90-3078Zcfekxf [Mass/Vol]8.1 g/dL6.4-8.9[facility] Health AdministrationRBC Auto (Bld) [#/Vol]Ordered By: Femi Benitez on 43-81-3563ZXX (Bld) [#/Vol]5.79 10*6/uL3.60-5.00UC Medical Centererum or plasma albumin/globulin mass ratioOrdered By: Femi Benitez on 25-32-9296Uyyscuo/Globulin [Mass ratio]1.9 {ratio}UC Medical Centererum or plasma anion gap determinationOrdered By: Femi Benitez on 30-03-7946Sonyl gap [Moles/Vol]TNP [facility] AdministrationComment on above:Test not performedSodium [Moles/volume] in Serum or PlasmaOrdered By: Femi Benitez on 91-74-8101Snvxbz [Moles/Vol]134 mmol/T888-842BbwlchqjdVeterans Health AdministrationUrea nitrogen [Mass/volume] in Serum or PlasmaOrdered By: Femi Benitez on 15-72-9662Udnh nitrogen [Mass/Vol]27 mg/dL7-25V[facility] Health AdministrationWBC Auto (Bld) [#/Vol]Ordered By: Femi Benitez on 89-69-8503MSR (Bld) [#/Vol]18.5 10*3/uL3.8-11.6 [facility] Health AdministrationCB w/ Auto Diffon 89-44-0614Iuglgejnu/100 WBC (Bld)0.4 %Normal0.0-2.0[facility] HospitalComment on above:Performed By: #### [id number], 02369322, 5722801, 7481972 ####[address] [address]Djtjwcrsa/Leukocytes Auto (Bld) [Pure # fraction]0.1 E9/LNormal0.0-0.2FSalem Regional Medical CenterComment on above: Performed By: #### 8458634, 54935666, 0093830, 2469653 ####[address] [address]Tlzhdsrrooo (Bld) [#/Vol]0.0 E9/LNormal0.0-0.5FSalem Regional Medical CenterComment on above:Performed By: #### 1339301, 58469120, 2082608, 5567867 ####[address] [address]Loszjrvbotf/100 WBC (Bld)0.3 %Normal 0.0-8.0[facility] HospitalComment on above:Performed By: #### 9427876, 52938288, 0261316, 1454219 ####[address] [address]Vxutmxtpljn distribution width (RBC) [Ratio]14.1 % Csopst26.9-14.2FSalem Regional Medical CenterComment on above:Performed By: #### 7264734, 92460204, 8228506, 8712767 ####[address] [address]Ftvwnvhgfd (Bld) [Volume fraction] 44.0 %Nljmpp19.0-46.0[facility] HospitalComment on above:Performed By: #### 2429247, 37269573, 5505510, 5878424 ####[address] [address]Gcddmktsfv (Bld) [Mass/Vol]14.4 g/dL Dpsjyv03.0-16.0[facility] HospitalComment on above:Performed By: #### 6296682, 21146440, 4679264, 1096884 ####[address] [address]Tojpnmcdbel (Bld) [#/Vol]2.2 E9/L Normal1.0-4.0[facility] HospitalComment on above:Performed By: #### 0040413, 52689722, 0216254, 2413987 ####[address] [address]Qjoscnpyfqh/100 WBC (Bld)15.8 %Normal 14.0-50.0[facility] HospitalComment on above:Performed By: #### 2654995, 73293894, 6294138, 9584027 ####[address] [address]LXP (RBC) [Entitic mass]27.8 zaRnticz21.0-34.0 [facility] HospitalComment on above:Performed By: #### 3104239, 82813095, 6697780, 9184776 ####[address] [address]QZPT (RBC) [Mass/Vol]32.6 g/kGEyfptu77.4-36.0[facility] HospitalComment on above:Performed By: #### 2969193, 85117024, 2303205, 5168224 ####[address] [address]KRX (RBC) [Entitic vol]85.2 aTGwefey01.0-100.0[facility] HospitalComment on above:Performed By: #### 4367967, 87244538, 3280523, 6117381 ####[address] [address]Rhojbiqpv (Bld) [#/Vol]1.1 E9/LHigh0.2-1.0[facility] Comment on above:Performed By: #### 7258717, 79508882, 5651937, 5460332 ####[address] [address] Neutrophils (Bld) [#/Vol]10.6 E9/LHigh2.0-7.5FSalem Regional Medical CenterComment on above:Performed By: #### 6621405, 95227249, 2639111, 0653740 ####[address] [address]Uettrhxkjbb/100 WBC (Bld)75.9 %High36.0-75.0[facility] HospitalComment on above:Performed By: #### 0417477, 45984688, 3641395, 3290778 ####[address] [address]Ykgxqvfn mean volume (Bld) [Entitic vol]8.4 fLNormal6.4-10.8[facility] HospitalComment on above:Performed By: #### 3649366, 37465393, 0469244, 8719417 ####[address] [address]Nninrplsn (Bld) [#/Vol]276.0 E9/L Hpcobk297.0-500.0[facility] HospitalComment on above:Performed By: #### 1498995, 99628550, 1708864, 2208795 ####[address] [address]SXB (Bld) [#/Vol]5.2 E12/LNormal 4.3-5.9[facility] HospitalComment on above:Performed By: #### 8530890, 71814465, 3187830, 7216944 ####[address] [address]HDR corrected for nucl RBC Auto (Bld) [#/Vol]14.0 E9/LHigh4.0-11.0[facility] HospitalComment on above:Performed By: #### 1864957, 73315320, 2623602, 0131587 ####[address] [address]XAZYTDTYKSzkunfh By: SYSTEM SYSTEM on 39-80-7741Dwjsfcp [Mass/Vol]5.0 g/dLNormal3.3 - 5.0 gm/dLRemisol Chem Albumin/Globulin [Mass ratio]1.8 {ratio}Normal1.1 - 2.2Remisol ChemALP [Catalytic activity/Vol]69 [iU]/kXbuyxh62 - 98 Int._Unit/LRemisol ChemALT No additional P-5'-P [Catalytic activity/Vol]31 [iU]/dNormal6 - 46 Int._Unit/L Remisol ChemAnion gap [Moles/Vol]22 mmol/LHigh6 - 16 mEq/LRemisol ChemAST [Catalytic activity/Vol]19 [iU]/dNormal5 - 43 Int._Unit/LRemisol ChemBilirubin [Mass/Vol]0.8 mg/dLNormal0.0 - 1.1 mg/dLRemisol ChemCalcium [Mass/Vol]10.4 mg/dL Normal8.9 - 11.1 mg/dLRemisol ChemCO2 [Moles/Vol]19 mmol/LLow21 - 31 mmol/L Remisol ChemCreatinine [Mass/Vol]0.8 mg/dLNormal0.5 - 1.3 mg/dLRemisol ChemeGFR 108 mL/min/1.73 p6Ryetra>=59mL/min/1.73 n3Qtjqkmq ChemGlobulin (S) [Mass/Vol]2.8 g/dLNormal1.4 - 4.0 gm/dLRemisol ChemGlucose [Mass/Vol]86 mg/uLQktsad79 - 199 mg/dLRemisol ChemMagnesium [Mass/Vol]2.2 mg/dLNormal1.3 - 2.4 mg/dLRemisol Chem Protein [Mass/Vol]7.8 g/dLNormal6.0 - 7.8 gm/dLRemisol ChemUrea nitrogen [Mass/Vol]24 mg/dLHigh5 - 21 mg/dLRemisol ChemUrea nitrogen/Creatinine [Mass ratio]30 mg/lpUoay64 - 20Remisol ChemCHEMISTRYOrdered By: Manish Sales on 55-43-0909Gxqapyyc [Moles/Vol]99 mmol/BJgf605 - 111 mmol/LRemisol ChemPotassium [Moles/Vol]3.3 mmol/LLow3.5 - 5.3 mmol/LRemisol ChemSodium [Moles/Vol]137 mmol/L Iidsju508 - 145 mmol/LRemisol ChemCMPon 71-07-3971Opjdlrpw [Moles/Vol]99 mmol/L Nzf209-420PxcwicKnox Community HospitalComment on above:Performed By: #### 4813209, 77791447, 5315952, 5512938 ####[address] [address]Mwwfyrjwg [Moles/Vol]3.3 mmol/LLow 3.5-5.3FSalem Regional Medical CenterComment on above:Performed By: #### 5218649, 10728545, 1085980, 9331099 ####[address] [address]Wwexdm [Moles/Vol]137 mmol/VSvcwhh616-857SanrkbKnox Community HospitalComment on above:Performed By: #### 4491391, 04195653, 7702505, 5443918 ####[address] [address]Odota gap [Moles/Vol]22 mmol/LHigh6-16Kn[facility] HospitalComment on above:Performed By: #### 4808314, 45445905, 5562018, 9203501 ####[address] [address]EJ5 [Moles/Vol]19 mmol/YXxm21-91MmphpxKnox Community HospitalComment on above: Performed By: #### 4369507, 42539529, 2268478, 5015686 ####[address] [address]Oyakuaf [Mass/Vol]5.0 g/dL Normal3.3-5.0[facility] HospitalComment on above:Performed By: #### 2806983, 58721382, 7166963, 7455294 ####[address] [address]Amdzrfi/Globulin (S) [Mass conc ratio]1.8Xunqwg7.1-2.2FSalem Regional Medical CenterComment on above:Performed By: #### 7713256, 09114243, 9786430, 0470476 ####[address] [address]VNL [Catalytic activity/Vol]69 Int._Unit/SRibrsj95-65AqcicuKnox Community HospitalComment on above:Performed By: #### 5457590, 05785353, 6116189, 9578115 ####[address] [address]OQH No additional P-5'-P [Catalytic activity/Vol]31 Int._Unit/LNormal6-46[facility] HospitalComment on above:Performed By: #### 0672785, 94140356, 6105438, 4165510 ####[address] [address]JTX [Catalytic activity/Vol]19 Int._Unit/LNormal5-43[facility] HospitalComment on above:Performed By: #### 5831024, 65052018, 4985836, 3686663 ####[address] [address]Zxwulrtsq [Mass/Vol] 0.8 mg/dLNormal0.0-1.1FSalem Regional Medical CenterComment on above:Performed By: #### 0839082, 23643500, 6689865, 6778758 ####[address] [address]Siqiszs [Mass/Vol]10.4 mg/dLNormal 8.9-11.1FSalem Regional Medical CenterComment on above:Performed By: #### 6416109, 72550038, 7280598, 2316469 ####[address] [address]Fxcwvblcoa [Mass/Vol]0.8 mg/dLNormal0.5-1.3FSalem Regional Medical CenterComment on above:Performed By: #### 3916186, 67459303, 1663906, 8632843 ####[facility] [address] [place] [address]Oieyrgji (S) [Mass/Vol]2.8 g/dLNormal1.4-4.0[facility] HospitalComment on above:Performed By: #### 9637508, 14282112, 6818500, 0268832 ####Saeed [facility] [address] [place] [address]Yhdtxsg [Mass/Vol]86 mg/qOSlgwhx11-600VxosrqKnox Community HospitalComment on above:Performed By: #### 2968795, 76919337, 0868981, 7300676 ####[address] [address]Nsqiisr [Mass/Vol]7.8 g/dLNormal6.0-7.8[facility] HospitalComment on above:Performed By: #### 0454187, 71090784, 4132826, 7965661 ####[address] [address]Nlgo nitrogen [Mass/Vol]24 mg/dLHigh 5-21[facility] HospitalComment on above:Performed By: #### 4397517, 12516236, 6890408, 8047716 ####[address] [address]Izml nitrogen/Creatinine [Mass ratio]30 No Units Func08-73DkqocsKnox Community HospitalComment on above:Performed By: #### 4543193, 85986912, 3998606, 3652786 ####[address] [address]WA Chest w/ Contraston 04-85-7138YV Chest w/ ContrastExam Date/Time: 03/15/2024 11:36 EDT [...] Contrast: Isovue 300 Contrast amount in ml's: 100NormParkview HealthConsent for Treatmenton 57-85-9127Gwvenqv for Treatment [id number] Surgical Hospital at SouthwoodsDischarge Instructionson 43-44-3665Syuzlkbwj Instructions [id number] [facility] Clinical Summaryon 65-98-2896CR Clinical Summary [place] [id number] ED Clinical Summary Person Information Name: PILI PARIKH/New_Anthony Age: 19 Years : 2005 Sex: Female Language: Kenyan PCP: MODESTA ARCHIBALD Marital Status: Single Visit [...] 03/15/2024 13:49:40 03/15/2024 13:49:40 03/15/2024 13:49:40 ADDRESS: [address] [place] [id number] [facility] DOC NOTES: MEDICAL INFORMATION: Prescriptions Given: Medications to Continue with No Changes Other Medications acetaminophen-hydrocodone ([place] 325 mg-5 mg oral tablet) 1 Tablets [...] any symptoms. DIAGNOSIS: 1:Nausea and vomiting; 2:PneumomediastinumNormalFisher Vancleve Medical CenterED Note-Physicianon 07-54-5449DK Note-PhysicianBasic Information Time Seen: Ebony [place], August [...] and Complexity of Problems Differential Diagnosis: [] [facility] Data External documents reviewed: [] My [...] instructed. Return to (more content not included)...Normal [facility] HospitalComment on above:Result Comment: Electronically Signed By: August Bermudez M.D.\.br\Date and Time Signed: 03/15/2416:57 EDTED Patient Education Noteon 72-23-5840HN Patient Education NoteGastroenterology Nausea and Vomiting, Adult [...] added (diluted fruit juice). ? Eat bland, pqkt-kz-jtodxa foods in small amounts as you are able. These foods include bananas, applesauce, rice, lean meats, toast, and crackers. ? Avoid fluids that contain a lot of sugar or caffeine, such as energy drinks, sports drinks, and soda. ? Avoid alcohol. ? Avoid spicy or fatty foods. General instructions ? Take qmxj-ses-vszrwzs and prescription medicines only as told by your health care provider. ? Drink enough fluid to keep your urine pale yellow. ? Wash your hands often using soap and water for at least 20 seconds. If soap and water are not available, use hand cotton converter. ? Make sure that everyone in your [...] and drinking to prevent dehydration. ? Take spoq-luu-kpbqyvl and prescription medicines only as told by [...] provider. Document Revised: 05/21/2022 Document Reviewed: 05/21/2022 [employer] Patient Education ? 2022 [employer]. Radiology Pneumomediastinum Pneumomediastinum is the presence of [...] cocaine, and marijuana. Spontane (more content not included)...[facility] Patient Summaryon [id number] Patient Summary [place] [id number] Patient Discharge Instructions Person Information Name: PILI PARIKH Age: 19 Years Arrival Date: 03/15/2024 10:32:10 Discharge Diagnosis: 1:Nausea and vomiting; 2:Pneumomediastinum Primary Care Physician: MODESTA ARCHIBALD Provider Information Primary Provider: August Bermudez M.D. Advanced Excel Expert:None The exam and treatment you received in the Emergency Department were for an urgent problem and are not intended as complete care. It is important that you follow up with a doctor, nurse practitioner,or physician?s acute care certified nursing assistant for ongoing care. If your symptoms [...] opioids can be used to help relieve iigxigtp-sp-ypjuro pain and are often prescribed following a [...] you may be strugg (more content not included)...[facility] CenterHEMATOLOGYOrdered By: SYSTEM SYSTEM on 03-15-2024 Basophils/100 WBC (Bld)0.4 %Normal0.0 - 2.0 %Remisol HemeBasophils/Leukocytes Auto (Bld) [Pure # fraction]0.1 E9/LNormal0.0 - 0.2 E9/LRemisol HemeEosinophils (Bld) [#/Vol]0.0 E9/LNormal0.0 - 0.5 E9/LRemisol HemeEosinophils/100 WBC (Bld) 0.3 %Normal0.0 - 8.0 %Remisol HemeErythrocyte distribution width (RBC) [Ratio] 14.1 %Tigrsk79.9 - 14.2 %Remisol HemeHematocrit (Bld) [Volume fraction]44.0 % Crfsra74.0 - 46.0 %Remisol HemeHemoglobin (Bld) [Mass/Vol]14.4 g/oRGgadkv83.0 - 16.0 gm/dLRemisol HemeLymphocytes (Bld) [#/Vol]2.2 E9/LNormal1.0 - 4.0 E9/L Remisol HemeLymphocytes/100 WBC (Bld)15.8 %Fcflmv17.0 - 50.0 %Remisol HemeMCH (RBC) [Entitic mass]27.8 qhEtrctj84.0 - 34.0 pgRemisol HemeMCHC (RBC) [Mass/Vol] 32.6 g/xRDstgpq13.4 - 36.0 gm/dLRemisol HemeMCV (RBC) [Entitic vol]85.2 [...] (Bld) [#/Vol]14.0 E9/LHigh4.0 - 11.0 E9/LRemisol HemeMagnesiumon 75-44-1210Bninkklmv [Mass/Vol]2.2 mg/dLNormal 1.3-2.4FSalem Regional Medical CenterComment on above:Performed By: #### [id number] ####[facility] [id number] [place], [place] [id number] [id number] mL/min/1.73 f7Cvezss>=59 [facility] HospitalComment on above:Order Comment: Order added by Discern Expert.Performed By: #### [id number] ####[facility] [address] [place], [place] [id number] Abdomen/Pelvis w/ Contraston 23-55-1537JS Abdomen/Pelvis w/ ContrastExam Date/Time: 03/13/2024 19:18 EDT [...] Isovue 300 Contrast amount in ml's: 130NormalFisher [facility]CT Chest w/ Contraston 72-87-3155IC Chest w/ ContrastExam Date/Time: 03/13/2024 19:18 EDT [...] Isovue 300 Contrast amount in ml's: 130NormalFisher [facility] MarylandCT Head or Brain w/o Contraston 34-79-1748HA Head or Brain w/o ContrastExam Date/Time: 03/13/2024 [...] Erick Ferrer M.D. Transcribed by: KIRA Technologist: [facility] HospitalCT Spine Cervical w/o Contraston [id number] Spine Cervical w/o ContrastExam Date/Time: 03/13/2024 19:18 [...] Erick Ferrer M.D. Transcribed by: KIRA Technologist: [facility] HospitalEMS Documentationon [id number] DocumentationPlease click on link to see report [facility] Medical CenterComment on above:Result Comment: Missing Attachment - total size limit for all attachments exceeded ekgattachments.pdf Can be viewed in source systemXR Chest 2 Viewson 78-78-7879EJ Chest 2 ViewsExam Date/Time: 03/13/2024 21:35 EDT [...] Kar in mGy = na DAP = naNormalKnox Community HospitalABO/Rhon 79-25-8458FQC/RhPositive Invalid Interpretation [facility] CenterComment on above:Performed By: #### 2534991, 59464920, 91577309, 81080971 ####[facility] [address] [place], [place] [address]FWB/Rh History Checkon 03-13-2024 ABO/Rh History CheckPatient discharged priorUniversity Hospitals Elyria Medical Center Comment on above:Performed By: #### 7492503, 17516625, 53763343, 84427503 ####[facility] [address] [place], [place] [address]JWKZ on 2004ASCH Gel InterpNegativeUniversity Hospitals Elyria Medical CenterComment on above:Performed By: #### 4206948, 51871730, 01718565, 04087100 ####[facility] [address] [place], [place] [address]W hCG Qualon 57-02-4075Pukv HCG ( test) QlNegativeUniversity Hospitals Elyria Medical Center Comment on above:Performed By: #### 11117110, 5695140, 7639310, 6888927, 0342041, 83888526, 33034533, 2647099, 1283586 ####[facility] [address] [place], [place] [address]MZRJO BANKOrdered By: Scarlet Lindquist on 14-67-4276MYB/Rh InterpPositiveInvalid Interpretation CodeCED[facility] [place] BB Subsection ABSC Gel InterpNegative (03/13/24 6:53 PM)NormalCEDAR RIDGE [facility] [place] BB SubsectionBMPon 49-92-1059Dmswd gap [Moles/Vol]16 mmol/LNormal6-16Kn[facility] HospitalComment on above:Performed By: #### 29498213, 8230250, 7247123, 5465649, 5289072, 06190841, 75619828, 8151582, 0503826 ####[facility] [address], [place] [address]Uhwdral [Mass/Vol]10.8 mg/dLNormal8.9-11.1FSalem Regional Medical Center Comment on above:Performed By: #### 88664475, 7688064, 3637430, 8476112, 3485513, 74776221, 37534255, 8388403, 2884004 ####[facility] [address]aph[address] AveNorunited health servicesk, [place] [address]Euniycoi [Moles/Vol]105 mmol/LNormal 101-111[facility] HospitalComment on above:Performed By: #### 80503666, 0333255, 7854412, 4907533, 4988811, 88338454, 25053632, 7561709, 3744213 ####[facility] [address]ql[address] AveNorunited health servicesk, [place] [address]TP9 [Moles/Vol]25 mmol/OEyorbv66-40RkwrwiKnox Community HospitalComment on above: Performed By: #### 01899403, 7144887, 2467859, 3553465, 0682027, 16588300, 85334596, 9197040, 3364438 ####[facility] [address]hqmcnh[address] AveNorunited health servicesk, [place] [address]Dowsupndxc [Mass/Vol]0.9 mg/dLNormal0.5-1.3FSalem Regional Medical CenterComment on above:Performed By: #### 49422916, 6292170, 8979521, 1492956, 7532984, 89772977, 84686884, 3197183, 1488338 ####Saeed [facility] [address] [place], [place] [address]Qogosqf [Mass/Vol]100 mg/rYFrfjrc11-059PtzsyvKnox Community HospitalComment on above:Performed By: #### 72156058, 7327198, 2761308, 2044330, 3976805, 06425624, 20950772, 5832573, 6505763 ####Saeed [facility] [address] [place] [address]Fczcltgzt [Moles/Vol]3.3 mmol/LLow3.5-5.3Fisher [facility] Western MarylandComment on above:Performed By: #### 75122539, 5258458, 6508925, 9634283, 6725720, 50903444, 04657541, 4763035, 5770373 ####Saeed [address] [address]Eklscy [Moles/Vol]143 mmol/LNormal 135-145Kn[facility] HospitalComment on above:Performed By: #### 65241889, 0231699, 0947933, 1197622, 7950085, 34085850, 89307555, 0838001, 5351079 ####[facility] [address] [place] [address]Kujo nitrogen [Mass/Vol]24 mg/dLHigh5-21Kn[facility] HospitalComment on above: Performed By: #### 09066979, 0176649, 7367396, 1504551, 7245316, 19462626, 10336114, 8951938, 2014981 ####[facility] [address] [place] [address]Chgl nitrogen/Creatinine [Mass ratio]27 No Units Ujyk17-01LqyybyKnox Community HospitalComment on above:Performed By: #### 35415335, 8789417, 9526211, 3257135, 2075022, 64903973, 74309329, 0445647, 8194705 ####[address] [address]Tzazf Bank ID#on [id number]#[id number] Interpretation CodeKnox Community HospitalComment on above:Performed By: #### 6845072, 69669534, 08659517, 73290792 ####[address] [address]INE w/ Auto Diffon 86-79-3631Srztwcnfz/100 WBC (Bld)0.4 % Normal0.0-2.0Kn[facility] HospitalComment on above:Performed By: #### 10692454, 1439492, 6858282, 8856276, 7653499, 57074453, 48010405, 3616256, 0189013 ####[address] [address]Rbcsmkdnz/Leukocytes Auto (Bld) [Pure # fraction]0.1 E9/LNormal0.0-0.2 [facility] HospitalComment on above:Performed By: #### 34021541, 8274797, 2025497, 1267044, 0411956, 95502302, 68663300, 0460794, 4720548 ####[address] [address] Eosinophils (Bld) [#/Vol]0.0 E9/LNormal0.0-0.5FSalem Regional Medical CenterComment on above:Performed By: #### 01380363, 0697928, 1663278, 8859453, 6602930, 95673916, 85532645, 7465940, 1373206 ####[address] [address]Qhinyuxagma/100 WBC (Bld)0.1 %Normal 0.0-8.0[facility] HospitalComment on above:Performed By: #### 24028498, 5597976, 5811953, 0374239, 0830169, 65667146, 88242765, 1904589, 5877022 ####Saeed [address] [address] Erythrocyte distribution width (RBC) [Ratio]14.4 %High10.9-14.2FSalem Regional Medical CenterComment on above:Performed By: #### 07093091, 6874431, 2627031, 2296727, 5836501, 28655215, 37937131, 1505564, 9330750 ####[address] [address]Jzfxgkqrdq (Bld) [Volume fraction]42.5 %Aligag16.0-46.0Kn[facility] HospitalComment on above: Performed By: #### 56209529, 7047745, 1123586, 1088874, 5517577, 39573265, 78940494, 6394691, 7907424 ####[address] [address]Ieuuscjzje (Bld) [Mass/Vol]14.0 g/iUWjfuzl11.0-16.0 [facility] HospitalComment on above:Performed By: #### 81501677, 2202830, 8480362, 0563103, 4659741, 08715896, 85094224, 5539415, 0381452 ####[address] [address] Lymphocytes (Bld) [#/Vol]2.3 E9/LNormal1.0-4.0[facility] HospitalComment on above:Performed By: #### 77503129, 4474535, 1682040, 8280787, 3628653, 51755282, 09421592, 6788437, 9317440 ####[address] [address]Bgjfxtcsuie/100 WBC (Bld)11.8 %Low 14.0-50.0Kn[facility] HospitalComment on above:Performed By: #### 41354711, 5940007, 6856584, 5530617, 8462815, 72430131, 76282887, 4695785, 9014980 ####Saeed [facility] [address] [place], [place] [address]GMN (RBC) [Entitic mass]27.6 pgUrwybk50.0-34.0[facility] Comment on above:Performed By: #### 42137498, 5004698, 2540331, 9046865, 0461550, 56162193, 25669381, 6578504, 2192322 ####Saeed [address] [address]XHDS (RBC) [Mass/Vol]32.9 g/dLNormal 31.4-36.0[facility] HospitalComment on above:Performed By: #### 47391610, 0644193, 2519479, 4946720, 1503946, 10554037, 11595007, 7466392, 8678060 ####Saeed [address] [address]YIA (RBC) [Entitic vol]83.8 bMLsttgv92.0-100.0[facility] Comment on above:Performed By: #### 49604024, 9515777, 0777909, 1147727, 3483938, 73288045, 06692599, 7859428, 8908816 ####Saeed [address] [address]Zqocuxtdt (Bld) [#/Vol]1.4 E9/LHigh 0.2-1.0[facility] HospitalComment on above:Performed By: #### 89384853, 4903267, 2617050, 5303052, 1993622, 50509917, 63574517, 6257918, 2026683 ####[address] [address] Neutrophils (Bld) [#/Vol]15.5 E9/LHigh2.0-7.5FSalem Regional Medical CenterComment on above:Performed By: #### 20028113, 7212145, 9932994, 6595570, 8534054, 71971042, 84730779, 3276567, 9488408 ####[address] [place], [place] [address]Ktagjrtjngs/100 WBC (Bld)80.6 %High 36.0-75.0[facility] HospitalComment on above:Performed By: #### 50746706, 8016691, 9195607, 7067082, 9008543, 76564580, 80921222, 7544454, 9343225 ####[address] [address]Wejjkpay mean volume (Bld) [Entitic vol]8.4 fLNormal6.4-10.8[facility] HospitalComment on above:Performed By: #### 86714136, 2234664, 8437000, 3839950, 3709006, 10027046, 51565359, 4831013, 2576792 ####[address] [address]Oldjjbarn (Bld) [#/Vol]356.0 E9/MEayjys673.0-500.0[facility] HospitalComment on above:Performed By: #### 14098839, 2920561, 2187105, 3582052, 8743839, 86572410, 46917814, 1427573, 7118242 ####[address] [address]UJW (Bld) [#/Vol]5.1 E12/LNormal4.3-5.9[facility] HospitalComment on above:Performed By: #### 85243589, 3136191, 1768203, 0628296, 4405408, 24590422, 59814161, 8912226, 9291340 ####[address] [address]NMS corrected for nucl RBC Auto (Bld) [#/Vol]19.3 E9/LHigh4.0-11.0[facility] HospitalComment on above:Result Comment: Slide review performedPerformed By: #### 50598941, 7364823, 7985360, 3486808, 6692085, 86044391, 95044049, 9995977, 4488957 ####Saeed [facility] [address] [place], [place] [address]NOABZOZQIGjeqvvz By: SYSTEM SYSTEM on 48-40-1456Aaxtcfv [Mass/Vol]5.4 g/dLHigh3.3 - 5.0 gm/dLRemisol Chem Albumin/Globulin [Mass ratio]1.8 {ratio}Normal1.1 - 2.2Remisol ChemALP [Catalytic activity/Vol]82 [iU]/hHjpudr47 - 98 Int._Unit/LRemisol ChemALT No additional P-5'-P [Catalytic activity/Vol]44 [iU]/dNormal6 - 46 Int._Unit/L Remisol ChemAnion gap [Moles/Vol]16 mmol/LNormal6 - 16 mEq/LRemisol ChemAST [Catalytic activity/Vol]23 [iU]/dNormal5 - 43 Int._Unit/LRemisol ChemBilirubin [Mass/Vol]0.8 mg/dLNormal0.0 - 1.1 mg/dLRemisol ChemBilirubin.direct [Mass/Vol] 0.2 mg/dLNormal0.0 - 0.4 mg/dLRemisol ChemBilirubin.indirect [Mass or moles/Vol] 0.6 mg/dLNormal0.1 - 0.9 mg/dLRemisol ChemCalcium [Mass/Vol]10.8 mg/dLNormal8.9 - 11.1 mg/dLRemisol ChemChloride [Moles/Vol]105 mmol/ODwymcw239 - 111 mmol/L Remisol ChemCO2 [Moles/Vol]25 mmol/UCgvydt30 - 31 mmol/LRemisol ChemCreatinine [Mass/Vol]0.9 mg/dLNormal0.5 - 1.3 mg/dLRemisol VybnaAXI31 mL/min/1.73 o9Fcgwzi >=59mL/min/1.73 y8Joxfjcc ChemEthanol Lvlmg/dLNormal<=11mg/dLRemisol Chem Globulin (S) [Mass/Vol]3.0 g/dLNormal1.4 - 4.0 gm/dLRemisol ChemGlucose [Mass/Vol]100 mg/mUYxjuvc52 - 199 mg/dLRemisol ChemLactic Acid Lvl1.7 mmol/L Normal0.5 - 2.2 mmol/LRemisol ChemLipase [Catalytic activity/Vol]14 U/YTvglwn89 - 58 unit/LRemisol ChemPotassium [Moles/Vol]3.3 mmol/LLow3.5 - 5.3 mmol/LRemisol ChemProtein [Mass/Vol]8.4 g/dLHigh6.0 - 7.8 gm/dLRemisol ChemSodium [Moles/Vol] 143 mmol/DSoakki893 - 145 mmol/LRemisol ChemTroponin6.10 pg/mLLow10.10 - 27.10 [...] - 21 mg/dLRemisol ChemUrea nitrogen/Creatinine [Mass ratio]27 mg/nlPjbk44 - 20Remisol ChemCOAGULATION Ordered By: Virginia Mccain on 87-57-2563jACT Coag (PPP) [Time]32.8 nVjgncm88.1 - 36.5 second(s)[facility] [place] Auto CoagComment on above:Interpretive Data: Parameter 15 days - 4 weeks 1 - 5 months 6 - 11 months 1 - 5 years 6 - 10 years 11 - 17 years PTT Mean: 35.4 (27.6-45.6) Mean: 33.5 (24.8-40.7) Mean: 32.4 (25.1-40.7) Mean: 31.6 (24.0-39.2) Mean: 31.6 (26.9-38.7) Mean: 31.0 (24.6-38.4) Pediatric Reference ranges were obtained from a study by Az Mission, et al. prepared from 1437 samples obtained at 7 different centers using the same coagulation reagent and instrumentation as [facility]. Currently there are no coagulation studies available worldwide for children to 14 days, andno normal ranges. Heparin therapeutic range (represented by Anti-Factor Xa activity of 0.2 - 0.4 U/mL) corresponds to PTT of 56.6 - 109.0 sec.INR Coag (PPP) [Relative time]1.11 {INR}Invalid Interpretation CodeCEDAR RIDGE [facility] [place] Auto CoagComment on above:Interpretive Data: INR results are specifically intended to assess patients stabilized on long-term Anticoagulation therapy suggested INR s Less Intensive Anticoagulation 2.0 3.0 Conventional Range 3.0 4.5PT Coag (PPP) [Time]12.4 sNormal9.4 - 12.5 second(s) [facility] Auto CoagComment on above:Interpretive [...] the same coagulation reagent and instrumentation as [facility]. Currently there are no coagulation studies available worldwide for children to 14 days, andno normal ranges.Consent for Treatmenton 32-28-5949Nfvilkg for Treatment [id number]#1.00TIFSelect Medical Cleveland Clinic Rehabilitation Hospital, BeachwoodDischarge Instructionson 80-78-6727Exwqkznhs Instructions [id number]#1.00TIFUniversity Hospitals [facility] Clinical Summaryon 06-28-1989SI Clinical Summary [address] [address] ED Clinical Summary Person Information Name: PILI PARIKH/Nathan Age: 19 Years : 2005 Sex: Female Language: Kenyan PCP: MODESTA ARCHIBALD Marital Status: Single Visit [...] 03/13/2024 22:27:59 03/13/2024 22:27:59 ADDRESS: [address] [facility] [id number] PHYS DOC NOTES: MEDICAL INFORMATION: Prescriptions Given: New Medications [id number], [address], [place] [id number], [phone] acetaminophen-hydrocodone ([place] 325 mg-5 mg oral tablet) 1 Tablets [...] EDUCATION INFORMATION: Instructions: Nausea and Vomiting, Adult, Hhib-ej-Zngc; Muscle Strain, Eutl-us-Kekt Follow up: With: Address: When: MODESTA ARCHIBALD [address], [place] [phone] Business (1) In 3 days 03/16/2024 Comments: [...] (nausea and vomiting)[facility] CenterED Note-Physicianon 97-17-1933FR Note-PhysicianBasic Information Time Seen: Gasper Lang PA-C [...] 03/13/24 19:05:00 EDT, STA (more content not included)...[facility] Medical CenterComment on above:Result Comment: Electronically Signed By: Gasper Lang PA-C\.br\Date and Time Signed: 03/13/2418:45 EDT\.br\Electronically Co-Signed By: Isaak Francis DO\.br\Date and Time Co-Signed: 03/13/24 22:19 EDT\.br\Electronically Co-Signed By: Femi Roman DO\.br\Date and Time Co-Signed: 03/16/2407:37 EDTED Patient Education Noteon 58-44-6683HC Patient Education NoteGastroenterology Nausea and Vomiting, Adult [...] ? Low-calorie sports drinks. ? Eat bland, sjsz-mi-zvutvu foods in small amounts as you are able, such as: ? Bananas. ? Applesauce. ? Rice. ? Low-fat (lean) meats. ? Rulo. ? Crackers. ? Avoid drinking fluids that have a lot of sugar or caffeine in them. This includes energy drinks, sports drinks, and soda. ? Avoid alcohol. ? Avoid spicy or fatty foods. General instructions ? Take fknx-lmk-oofyqjs and prescription medicines only as told by your doctor. ? Drink enough fluid to keep your pee (urine) pale yellow. ? Wash your hands often with soap and water for at least 20 seconds. If you cannot use soap and water, use hand cotton converter. ? Make sure that everyone in your [...] doctor about eating and drinking. ? Take kbgb-eya-hulgvky and prescription medicines only as told by your doctor. ? Contact your doctor if your symptoms get worse or you have new symptoms. ? Keep all follow-up visits. This information is not intended to replace advice given to you by your health care provider. Make sure you discuss any questions you have with your health care provider. Document Revised: 05/21/2022 Document Reviewed: 05/21/2022 [employer] Patient Education ? 2022 [employer]. Orthopedics Muscle Strain A muscle strain, or [...] ? Protecting your m (more content not included)...[facility] Patient Summaryon 19-11-9489NT Patient Summary [place] [id number] Patient Discharge Instructions Person Information Name: PILI PARIKH Age: 19 Years Arrival Date: 03/13/2024 17:33:02 Discharge Diagnosis: 1:Fall down stairs; Abnormal CT scan, chest; Back strain; N&V (nausea and vomiting) Primary Care Physician: MODESTA ARCHIBALD Provider Information Primary Provider: Femi Roman DO Advanced Excel Expert:Gasper Lang PA-C The exam and treatment you received in the Emergency Department were for an urgent problem and are not intended as complete care. It is important that you follow up with a doctor, nurse practitioner,or physician?s acute care certified nursing assistant for ongoing care. If your symptoms [...] With: Address: When: MODESTA ARCHIBALD [address], [place] [phone] Business (1) In 3 days 03/16/2024 Comments: [...] Patient Education Materials: Nausea and Vomiting, Adult, Asev-ct-Kuon; Muscle Strain, Kxkj-zc-Pifp A MESSAGE TO ALL PATIENTS REGARDING OPIOIDS PRESCRIPTION OPIOIDS: WHAT YOU NEED TO KNOW Prescription opioids can be used to help relieve fgojnxai-oj-fudmuw pain and are often prescribed following a [...] your community drug take- back program or yourpharmLotLinx mail-back program, or flush them juan (more content not included)...[facility] Traumaon 03-16-2482CP Trauma [id number]#1.00TIFFNormalKnox Community HospitalEthanolon 01-13-0100Rrluxua Lvl<10Normal<=11[facility] Comment on above:Performed By: #### [id number] ####Christophe [facility] [address] [place], [place] [address]UONWUBQRMOFwsdobc By: SYSTEM SYSTEM on 14-76-7116Clnidwxcf/100 WBC (Bld)0.4 %Normal0.0 - 2.0 %Remisol Heme Basophils/Leukocytes Auto (Bld) [Pure # fraction]0.1 E9/LNormal0.0 - 0.2 E9/L Remisol HemeEosinophils (Bld) [#/Vol]0.0 E9/LNormal0.0 - 0.5 E9/LRemisol Heme Eosinophils/100 WBC (Bld)0.1 %Normal0.0 - 8.0 %Remisol HemeErythrocyte distribution width (RBC) [Ratio]14.4 %High10.9 - 14.2 %Remisol HemeHematocrit (Bld) [Volume fraction]42.5 %Wrnoni45.0 - 46.0 %Remisol HemeHemoglobin (Bld) [Mass/Vol]14.0 g/qAUitiyz11.0 - 16.0 gm/dLRemisol HemeLymphocytes (Bld) [#/Vol] 2.3 E9/LNormal1.0 - 4.0 E9/LRemisol HemeLymphocytes/100 WBC (Bld)11.8 %Low14.0 - 50.0 %Remisol HemeMCH (RBC) [Entitic mass]27.6 jeYbdzps15.0 - 34.0 pgRemisol HemeMCHC (RBC) [Mass/Vol]32.9 g/yZJxmcnc80.4 - 36.0 gm/dLRemisol HemeMCV (RBC) [Entitic vol]83.8 gMZtcgut91.0 - 100.0 fLRemisol HemeMonocytes (Bld) [#/Vol]1.4 E9/LHigh0.2 - 1.0 E9/LRemisol HemeMonocytes/100 WBC (Bld)7.1 %Normal4.0 - 14.0 % Remisol HemeNeutrophils (Bld) [#/Vol]15.5 E9/LHigh2.0 - 7.5 E9/LRemisol Heme Neutrophils/100 WBC (Bld)80.6 %High36.0 - 75.0 %Remisol HemePlatelet mean volume (Bld) [Entitic vol]8.4 fLNormal6.4 - 10.8 fLRemisol HemePlatelets (Bld) [#/Vol] 356.0 E9/CUcgquj918.0 - 500.0 E9/LRemisol HemeRBC (Bld) [#/Vol]5.1 E12/LNormal 4.3 - 5.9 E12/LRemisol HemeWBC corrected for nucl RBC Auto (Bld) [#/Vol]19.3 E9/LHigh4.0 - 11.0 E9/LRemisol HemeComment on above:Result Comment: Slide review performedHep Func Panelon 60-53-4283Rwseioo [Mass/Vol]5.4 g/dLHigh3.3-5.0[facility] HospitalComment on above:Performed By: #### 87391435, 3788760, 6311427, 5292692, 7971999, 94752278, 28469645, 1906607, 2585599 ####[address] [place], [place] [address]Fsrijrq/Globulin (S) [Mass conc ratio]1.0Vkwmeg2.1-2.2Fisher [facility]c Western MarylandComment on above: Performed By: #### 13146966, 0391447, 6650360, 9050093, 3967029, 82185303, 79818201, 6546940, 1042076 ####[address] [place], [place] [address]CBF [Catalytic activity/Vol]82 Int._Unit/LNormal 21-98Kn[facility] HospitalComment on above:Performed By: #### 35407057, 5761173, 0280278, 2564888, 5088191, 51643484, 58777162, 6653524, 6124933 ####[facility] [address] [place], [place] [address]JQT No additional P-5'-P [Catalytic activity/Vol]44 Int._Unit/LNormal6-46[facility] HospitalComment on above:Performed By: #### 09421259, 1810432, 0562717, 3791453, 6927066, 96612539, 04714670, 3965647, 6792904 ####[facility] [address] [place] [address]UEM [Catalytic activity/Vol]23 Int._Unit/LNormal5-43Kn[facility] HospitalComment on above:Performed By: #### 74243795, 1502640, 9795561, 7508244, 0277320, 87924040, 85896079, 6427786, 4102403 ####Christophe [facility] [address] [place], [place] [address]Xiqkkzvhj [Mass/Vol]0.8 mg/dLNormal0.0-1.1Fisher [facility] Western MarylandComment on above:Performed By: #### 86280270, 8058134, 4862428, 2350158, 4648915, 99615956, 86978082, 5561531, 8165231 ####Christophe [address] [address]Pzoqrrjxh.direct [Mass/Vol]0.2 mg/dLNormal0.0-0.4Fisher [facility] MarylandComment on above: Performed By: #### 34948260, 0784945, 7512248, 6536722, 4402128, 67839492, 41423108, 3516759, 8187344 ####Christophe [address] [address]Pkykchoxc.indirect [Mass or moles/Vol]0.6 mg/dL Normal0.1-0.9[facility] HospitalComment on above:Performed By: #### 78609108, 1975965, 2372811, 4466597, 8596260, 12711569, 19182824, 5658129, 3039288 ####Christophe [facility] [address] [place] [address]Yicfoqcg (S) [Mass/Vol]3.0 g/dLNormal1.4-4.0[facility] Comment on above:Performed By: #### 71407652, 6493964, 5163098, 2263334, 5791345, 28400480, 41902931, 0850983, 8857127 ####Christophe [facility] [address] [place] [address]Bfsxaqn [Mass/Vol]8.4 g/dLHigh6.0-7.8 [facility] HospitalComment on above:Performed By: #### 77513297, 1509339, 4087172, 7072094, 0201825, 14048106, 01471699, 1580635, 8477176 ####[facility] [address] [place] [address] Lactic Acidon 81-75-5003Kraaze Acid Lvl1.7 mmol/LNormal0.5-2.2Fisher [facility] MarylandComment on above:Performed By: #### 66505815, 8433426, 3613637, 7461748, 2226817, 63047349, 82903699, 6118850, 1570947 ####[facility] [address] [place], [place] [address]Cfvcre Levelon 03-13-2024 Lipase [Catalytic activity/Vol]14 U/MTqtasw83-31CbrychKnox Community Hospital Comment on above:Performed By: #### 15650175, 9829516, 7490156, 6570729, 6273719, 38731226, 08977938, 0373229, 3162767 ####[facility] [address] [place], [place] [address]Swmudkg Recordon 10-91-0254Uslvoqr [id number]#1.00TIFFNormalKnox Community HospitalMonitor [id number]#1.00TIFF NormalKnox Community HospitalPT & PTTon 71-32-6517tPIX Coag (PPP) [Time]32.8 second(s)Rqlsex00.1-36.5Fisher [facility] Western MarylandComment on above:Result Comment: Parameter 15 days - [...] the same coagulation reagent and instrumentation as [facility]. Currently there are no coagulation studies available worldwide for children to 14 days, andno normal ranges. Heparin therapeutic range (represented by Anti-Factor Xa activity of 0.2 - 0.4 U/mL) corresponds to PTT of 56.6 - 109.0 sec.Performed By: #### 50124331, 8160458, 3217844, 5857026, 9240922, 60668164, 83619686, 2517073, 9916804 ####Christophe [facility] [address] [place], [place] [address]KMI Coag (PPP) [Relative time]1.11 {INR}Invalid Interpretation CodeFisher [facility] MarylandComment on above:Result Comment: INR results are specifically intended to assess patients stabilized on long-term Anticoagulation therapy suggested INR?s ?Less Intensive Anticoagulation? 2.0 ? 3.0 Conventional Range 3.0 ? 4.5Performed By: #### [id number], [id number], 1132395, 5821493, 0394134, 94932824, 65245179, 2394799, 6583813 ####[facility] [address] [place], [place] [address]DQ Coag (PPP) [Time]12.4 second(s)Normal9.4-12.5Fisher [facility] MarylandComment on above:Result Comment: 15 days - 4 weeks 1 - 5 months 6 -11 months 1-5 years 6-10 years 11 -17 years Mean: 11.2 (9.5-12.6) Mean: 11.0 (9.7-12.8) Mean: 11.0 (9.8-13.0) Mean: 11.3 (9.9-13.4) Mean: 11.7 (10.0-14.6) Mean: 11.8 (10.0 - 14.1) Pediatric Reference ranges were obtained from a study by Az Mission, et al. prepared from 1437 samples obtained at 7 different centers using the same coagulation reagent and instrumentation as [facility] [place]. Currently there are no coagulation studies available worldwide for children to 14 days, andno normal ranges.Performed By: #### [id number], [id number], 4953950, 6755698, 7255293, 77520730, 02015903, 9188115, 4455506 ####[facility] [address] [place], [place] [address]Mmx-Fgwddlm Noteon [id number]- Arrival NotePre-Arrival Summary Name: , [facility] Current Date: 03/13/2024 17:34:24 EDT Gender: Female Date of : Age: 19 Pre-Arrival Type: EMS ETA: 03/13/2024 17:59:00 EDT Primary Care Physician: Presenting Problem: fall down 10 stairs Pre-Arrival User: Payal Robison RN Referring Source: Location: Completion Date/Time: 03/13/2024 17:29:00 [facility] Emergency Department Pre-Hospital Report Form Vital Signs: 127/83; 66; 17; 96%; GCS 15 Pre-Hospital Report: Treatment in Route: C-COLLAR Response to Treatment: Misc. Issues:[facility] CenterPrescriptions/Work Noteson 93-51-2098Vybqzknkgbffj/Work Notes [id number]#1.00[facility] CenterRAD - Preliminary Cat Scan Reporton 35-75-0462GDP - Preliminary Cat Scan [id number]#1.00[facility] CenterEROLOGYOrdered By: Virginia Mccain on 57-64-3347Fkfs HCG ( test) QlNegative (03/13/24 6:53 PM)NormalCEDAR RIDGE [facility] [place] Man SeroTroponinon 77-93-2676Sooopqlo6.10 pg/mLLow 10.10-27.10[facility] HospitalComment on above:Result Comment: The 95% CI (Confidence Interval) PPV (Positive Predictive Value) for myocardial infa rction in females is 38 pg/mL, in males 51 pg/mL. The results should be used in conjunction with clinical conditions of myocardial infarction. (Access High Sensitivity Troponin I Instructions For Use, Sugar Thelma, June 2018)Performed By: #### [id number], [id number], [id number], [id number], [id number] ####[facility] [address] [place], [place] [address]oCFQms 33-86-3374eCMR21 mL/min/1.73 t3Defaob>=59Kn[facility] Community HospitalComment on above:Order Comment: qns to run. phlebotomists notified of recollect by message. [id number] 03/13/2024 18:28:21 EDTOrder added by Discern Expert.Performed By: #### [id number], [id number], [id number], [id number], [id number], [id number] ####[facility] [address] [place], [place] [address]Wdglfgqaltj Screen Ql (U) Ordered By: Familia Christian on 73-96-8162Jgxtgmmapbwv Ql (U)NegativeNegLima City HospitalBarbiturates [Presence] in Urine by Screen methodOrdered By: Familia Christian on 03-30-0512Agxntvwcgwcp Screen Ql (U)NegativeNegLima City HospitalBenzodiazepines Screen Ql (U)Ordered By: Familia Christian on 44-27-2741Oyoztajngdqbjrf Ql (U)NegativeNegLima City HospitalBenzoylecgonine [Presence] in Urine by Screen methodOrdered By: Familia Christian on 83-34-6767Cfdtoiculphouxp Screen Ql (U)NegativeNegLima City HospitalCannabinoids [Presence] in Urine by Screen methodOrdered By: Familia Christian on 16-19-7584Dapuyqsbjzox Screen Ql (U)PositiveNegativeVeterans Health AdministrationComment on above:These are unconfirmed results and should not be used for legal purposes. Drug Cut-Off Concentration: AMPH 1000 ng/mL NIKOLAS 200 ng/mL SHRAVAN 200 ng/mL COCM 300 ng/mL OP 300 ng/mL PCP 25 ng/mL THC 20 ng/mLHCG ( test) IA.rapid Ql (U)Ordered By: Familia Christian on 61-09-8725SDJ ( test) Ql (U)NegativeVeterans Health AdministrationOpiates [Presence] in Urine by Screen methodOrdered By: Familia Christian on 06-60-0238Hyolusq Screen Ql (U)NegativeNegativeVeterans Health AdministrationPhencyclidine Screen Ql (U)Ordered By: Familia Christian on 39-98-4856Plkkeizdcrmoq Ql (U)Negative NegativeVeterans Health AdministrationCOVID-19 Detected/Not DetectedOrdered By: Modesta Chand on 10-07-5126YVID-CoV-2 (COVID-19) RNA JANAK+non-probe Ql (Nph)Not detectedNot DetectPremier Health Miami Valley Hospital SouthComment on above: This is a duplicate RP2.1 COVID (PCR) result to be used for statistical tracking purpose only.Respiratory pathogens DNA and RNA panel - Nasopharynx by JANAK with non-probe detectionOrdered By: Modesta Chand on 26-32-3491Utlwgiyrpov pathogens DNA and RNA panel JANAK+non-probe (Nph)[facility] Basophils Auto (Bld) [#/Vol]Ordered By: Anette Stout on 64-76-7058Zdpllhfen (Bld) [#/Vol]0.0 10*3/uL0.0-0.1FMercy Health West HospitalBasophils/100 WBC Auto (Bld)Ordered By: Anette Stout on 20-96-2213Vpmzzvpce/100 WBC (Bld)0.4 %. [facility] AdministrationEosinophils Auto (Bld) [#/Vol]Ordered By: Anette Stout on 05-65-6660Tfoymxjjzxu (Bld) [#/Vol]0.7 10*3/uL0.0-0.7FMercy Health West HospitalEosinophils/100 WBC Auto (Bld)Ordered By: Anette Stout on 00-36-7025Dqdlzqnqhln/100 WBC (Bld)5.5 %.[facility] Erythrocyte distribution width Auto (RBC) [Ratio]Ordered By: Anette Stout on 19-01-7594Iuemaqxtlre distribution width (RBC) [Ratio]13.5 %11.9-15.3FMercy Health West HospitalEstimated glomerular filtration rate (GFR) non- AmericanOrdered By: Anette Stout on 64-46-4757LXC/1.73 sq M.predicted among non- blacks MDRD (S/P/Bld) [Vol rate/Area]> 60 mL/MinVeterans Health AdministrationHematocrit Auto (Bld) [Volume fraction]Ordered By: Anette Stout on 63-92-4674Soaasxiacf (Bld) [Volume fraction]41.5 %36.0-46.0[facility] AdministrationHemoglobin [Mass/volume] in BloodOrdered By: Anette Stout on 57-68-1043Dvuwjbnjoo (Bld) [Mass/Vol]14.0 g/dL12.0-16.0[facility] AdministrationLeukocytes [#/volume] corrected for nucleated erythrocytes in Blood by Automated counOrdered By: Anette Stout on 94-39-3221UEE corrected for nucl RBC Auto (Bld) [#/Vol]12.1 10*3/uL4.5-13.5FMercy Health West Hospital Lymphocytes Auto (Bld) [#/Vol]Ordered By: Anette Stout on 84-08-4335Zuwhfvwrack (Bld) [#/Vol]2.5 10*3/uL1.20-4.8[facility] AdministrationLymphocytes/100 WBC Auto (Bld)Ordered By: Anette Stout on 20-72-7106Lzcrffunppt/100 WBC (Bld) 20.9 %.[facility] AdministrationMCH Auto (RBC) [Entitic mass]Ordered By: Anette Stout on 87-57-6414WAV (RBC) [Entitic mass]28.8 pg25.0-35.0[facility] AdministrationMCHC Auto (RBC) [Mass/Vol]Ordered By: Anette Stout on 49-60-6181KZVO (RBC) [Mass/Vol]33.7 g/dL31.0-37.0[facility] AdministrationMCV Auto (RBC) [Entitic vol]Ordered By: Anette Stout on 10-08-9431JAR (RBC) [Entitic vol]85.5 eQ94-284NdydelzakVeterans Health AdministrationMonocytes Auto (Bld) [#/Vol]Ordered By: Anette Stout on 44-76-9516Aewarmmys (Bld) [#/Vol]0.9 10*3/uL 0.1-1.00[facility] AdministrationMonocytes/100 WBC Auto (Bld)Ordered By: Anette Stout on 46-25-2243Lgqmmixll/100 WBC (Bld)7.5 %.[facility] AdministrationNeutrophils Auto (Bld) [#/Vol]Ordered By: Anette Stout on 24-27-9241Rscdbfrpvmb (Bld) [#/Vol]8.0 10*3/uL1.2-7.7FMercy Health West HospitalNeutrophils/100 WBC Auto (Bld)Ordered By: Anette Stout on 01-07-2023 Neutrophils/100 WBC (Bld)65.7 %.[facility] AdministrationNo Panel InformationOrdered By: Anette Stout on 01-07-2023> 60 mL/MinVeterans Health Administration113.92[facility] AdministrationNucleated erythrocytes [Presence] in Blood by Automated countOrdered By: Anette Stout on 01-07-2023 Nucleated RBC Auto Ql (Bld)0.1 /100{WBC}0-0.5FMercy Health West Hospital Platelet mean volume Auto (Bld) [Entitic vol]Ordered By: Anette Stout on 94-31-0963Xjtwzpgf mean volume (Bld) [Entitic vol]8.6 fL6.3-10.7FMercy Health West HospitalPlatelets Auto (Bld) [#/Vol]Ordered By: Anette Stout on 64-15-5226Tmvxuqwvb (Bld) [#/Vol]222 10*3/aZ367-727AjzdjwrppVeterans Health AdministrationRBC Auto (Bld) [#/Vol]Ordered By: Anette Stout on 86-14-9442RZT (Bld) [#/Vol]4.85 10*6/uL4.10-5.10UC [facility] Centererum or plasma anion gap determinationOrdered By: Anette Stout on 90-10-8139Fymsh gap [Moles/Vol]N/AFOhioHealth Marion General Hospitalerum or plasma calcium measurement (mass/volume)Ordered By: Anette Stout on 74-08-9211Olncepz [Mass/Vol] 8.5 mg/dL8.2-10.2FOhioHealth Marion General Hospitalerum or plasma chloride measurement (moles/volume)Ordered By: Anette Stout on 46-21-3434Tjtvrnjb [Moles/Vol]103 mmol/C19-001RhfiuapytUC Medical Centererum or plasma creatinine measurement with calculation of estimated glomerular filtrOrdered By: Anette Stout on 02-94-0559Mmsmuhaibv and Glomerular filtration rate.predicted panel (S/P/Bld)0.77 mg/dL0.44-1.03[facility] Centererum or plasma glucose measurement (mass/volume)Ordered By: Anette Stout on 01-07-2023 Glucose [Mass/Vol]90 mg/vU12-032NelikvkihUC Medical Centererum or plasma potassium measurement (moles/volume)Ordered By: Eliana Bautista on 01-07-2023 Potassium [Moles/Vol]3.2 mmol/L3.5-5.1FOhioHealth Marion General Hospitalerum or plasma sodium measurement (moles/volume)Ordered By: Anette Stout on 01-07-2023 Sodium [Moles/Vol]134 mmol/O313-976XxhnuncwrUC Medical Centererum or plasma total carbon dioxide measurement (moles/volume)Ordered By: Anette Stout on 78-55-0121FV4 [Moles/Vol]23.4 mmol/L22.0-30.0[facility] Serum or plasma urea nitrogen measurement (mass/volume)Ordered By: Anette Stout on 64-24-2985Tirx nitrogen [Mass/Vol]8 mg/dL9-23V[facility] AdministrationWBC Auto (Bld) [#/Vol]Ordered By: Anette Stout on 53-55-2784WSF (Bld) [#/Vol]12.1 10*3/uL4.5-13.5FMercy Health West HospitalAmphetamine Screen Ql (U)Ordered By: Anette Stout on 41-33-2429Dnjfcwmybhwi Ql (U)NegativeNegative [facility] AdministrationAutomated erythrocytes count in urine sediment (number/area)Ordered By: Rd Brown on 09-55-0484WPK Auto (Urine sed) [#/Area] None seen [HPF]0-4FMercy Health West HospitalAutomated leukocytes count in urine sediment (number/area)Ordered By: Rd Brown on 03-02-5634FDY Auto (Urine sed) [#/Area]20-49 [HPF]0-4FMercy Health West HospitalAutomated urine hyaline casts count (number/volume)Ordered By: Rd Brown on 01-06-2023 Hyaline casts Auto (U) [#/Vol]None seen [LPF]0-1FMercy Health West HospitalBarbiturates [Presence] in UrineOrdered By: Anette Stout on 01-06-2023 Barbiturates Ql (U)NegativeNegativeVeterans Health AdministrationBasophils Auto (Bld) [#/Vol]Ordered By: Rd Brown on 69-75-7432Eigaawzht (Bld) [#/Vol] 0.0 10*3/uL0.0-0.1FMercy Health West HospitalBasophils/100 WBC Auto (Bld) Ordered By: Rd Brown on 94-15-5977Vujbqbftq/100 WBC (Bld)0.3 %.[facility] AdministrationBenzodiazepines [Presence] in UrineOrdered By: Anette Stout on 02-87-7946Isgyqstdbrcvfcw Ql (U)NegativeNegativeVeterans Health AdministrationBilirubin Test strip Ql (U)Ordered By: Rd Brown on 01-06-2023 Bilirubin Ql (U)NegativeNegativeVeterans Health AdministrationBody fluid albumin measurement (mass/volume)Ordered By: Rd Brown on 81-69-9586Xonxqdz (Body fld) [Mass/Vol]4.9 g/dL3.2-5.5FMercy Health West Hospital Cannabinoids [Presence] in Urine by Screen methodOrdered By: Anette Stout on 01-49-4850Mhtjlkmiwdnx Screen Ql (U)PositiveNegativeVeterans Health AdministrationCasts typing in urine sediment by light microscopyOrdered By: Rd Brown on 33-36-0602Rnadf LM Nom (Urine sed)None seen [LPF]None SeenVeterans Health AdministrationColor Auto (U)Ordered By: Rd Brown on 43-45-1740Ezvrf (U) YellowYellowVeterans Health AdministrationEosinophils Auto (Bld) [#/Vol] Ordered By: Rd Brown on 83-27-7466Bhljrpinqpy (Bld) [#/Vol]0.4 10*3/uL 0.0-0.7FMercy Health West HospitalEosinophils/100 WBC Auto (Bld)Ordered By: Rd Brown on 64-92-9975Knxeydzeuuv/100 WBC (Bld)2.3 %.[facility] AdministrationErythrocyte distribution width Auto (RBC) [Ratio]Ordered By: Rd Brown on 38-26-3712Tdyhramsxrj distribution width (RBC) [Ratio]13.5 % 11.9-15.3FMercy Health West HospitalEstimated glomerular filtration rate (GFR) non- AmericanOrdered By: Rd Brown on 66-27-0618VXU/1.73 sq M.predicted among non-blacks MDRD (S/P/Bld) [Vol rate/Area]> 60 mL/MinVeterans Health AdministrationGlobulin Calc (S) [Mass/Vol]Ordered By: Rd Brown on 91-61-9482Gcxxrbbo (S) [Mass/Vol]2.9 g/dLVeterans Health AdministrationHCG ( test) IA.rapid Ql (U)Ordered By: Rd Brown on 38-98-2848JCQ ( test) Ql (U)NegativeVeterans Health AdministrationHematocrit Auto (Bld) [Volume fraction]Ordered By: Rd Brown on 07-38-8073Ytrabnsyaa (Bld) [Volume fraction]48.3 %36.0-46.0[facility] AdministrationHemoglobin [Mass/volume] in BloodOrdered By: Rd Brown on 33-81-4981Aoiaetslqp (Bld) [Mass/Vol]16.2 g/dL12.0-16.0[facility] AdministrationKetones Auto test strip (U) [Mass/Vol]Ordered By: Rd Brown on 87-69-2870Jrhydtf (U) [Mass/Vol] 4+NegativeVeterans Health AdministrationLeukocytes [#/volume] corrected for nucleated erythrocytes in Blood by Automated counOrdered By: Rd Brown on 21-68-6180GRS corrected for nucl RBC Auto (Bld) [#/Vol]17.7 10*3/uL4.5-13.5 [facility] AdministrationLymphocytes Auto (Bld) [#/Vol]Ordered By: Rd Brown on 86-03-6651Xzbyhwcqihc (Bld) [#/Vol]3.5 10*3/uL1.20-4.8[facility] AdministrationLymphocytes/100 WBC Auto (Bld)Ordered By: Rd Brown on 72-44-0148Jfjrlkeqfhn/100 WBC (Bld)19.9 %.[facility] Auto (RBC) [Entitic mass]Ordered By: Rd Brown on 19-55-7125SPJ (RBC) [Entitic mass]28.7 pg25.0-35.0[facility] AdministrationMCHC Auto (RBC) [Mass/Vol]Ordered By: Rd Brown on 20-76-6456PJDO (RBC) [Mass/Vol]33.6 g/dL 31.0-37.0[facility] AdministrationMCV Auto (RBC) [Entitic vol]Ordered By: Rd Brown on 31-80-3376QTY (RBC) [Entitic vol]85.4 sI73-577OewandbwoVeterans Health AdministrationMonocyte distribution width [Entitic volume] in Blood by AutomatedOrdered By: Rd Brown on 51-37-8130Hdgcfgve distribution width Auto (Bld) [Entitic vol]15.43 %0.00-20.00[facility] AdministrationMonocytes Auto (Bld) [#/Vol]Ordered By: Rd Brown on 49-22-4716Uwlqtcnnp (Bld) [#/Vol] 1.3 10*3/uL0.1-1.00[facility] AdministrationMonocytes/100 WBC Auto (Bld) Ordered By: Rd Brown on 84-65-1442Kstnommfv/100 WBC (Bld)7.4 %.[facility] AdministrationNeutrophils Auto (Bld) [#/Vol]Ordered By: Rd Brown on 06-66-0915Wzlkbqlnxuc (Bld) [#/Vol]12.4 10*3/uL1.2-7.7FMercy Health West HospitalNeutrophils/100 WBC Auto (Bld)Ordered By: Rd Brown on 36-63-6574Duzcqtzhggr/100 WBC (Bld)70.1 %.[facility] Nitrite Test strip Ql (U)Ordered By: Rd Brown on 49-25-1730Kihjyqf Ql (U) NegativeNegativeVeterans Health AdministrationNo Panel InformationOrdered By: Anette Stout on 16-25-8655HbdlftvvWajoxfogKijqzbryxLima City HospitalNo Panel InformationOrdered By: Rd Brown on 01-06-2023> 60 mL/MinVeterans Health Administration31.0 U/Q81-78StbotxpsuVeterans Health Administration102.00 [facility] AdministrationNucleated erythrocytes [Presence] in Blood by Automated countOrdered By: Rd Brown on 19-92-9462Acqfllcfx RBC Auto Ql (Bld) 0.1 /100{WBC}0-0.5FMercy Health West HospitalPhencyclidine Screen Ql (U) Ordered By: Anette Stout on 31-90-6686Igbfbgbncoqsu Ql (U)NegativeNegative [facility] AdministrationPlatelet mean volume Auto (Bld) [Entitic vol] Ordered By: Rd Brown on 38-59-3870Wuikzkjh mean volume (Bld) [Entitic vol] 8.5 fL6.3-10.7FMercy Health West HospitalPlatelets Auto (Bld) [#/Vol] Ordered By: Rd Brown on 63-43-6070Ybvthjgwt (Bld) [#/Vol]296 10*3/vL306-282 [facility] AdministrationProtein Auto test strip (U) [Mass/Vol]Ordered By: Rd Brown on 76-94-7629Irfgwlr (U) [Mass/Vol]100 mg/dLNegativeVeterans Health AdministrationProtein [Mass/volume] in Serum or PlasmaOrdered By: Rd Brown on 81-91-3417Vqchtzy [Mass/Vol]7.8 g/dL6.1-7.9[facility] AdministrationRBC Auto (Bld) [#/Vol]Ordered By: Rd Brown on 62-79-2477UYE (Bld) [#/Vol]5.65 10*6/uL4.10-5.10[facility] Centererum or plasma alanine aminotransferase measurement without P-5'-P (enzymatic activi Ordered By: Rd Brown on 52-53-4477JZF No additional P-5'-P [Catalytic activity/Vol]20 U/U67-01JiyxeknttUC Medical Centererum or plasma albumin/globulin mass ratioOrdered By: Rd Brown on 01-06-2023 Albumin/Globulin [Mass ratio]1.7 {ratio}[facility] Centererum or plasma alkaline phosphatase measurement (enzymatic activity/volume)Ordered By: Rd Brown on 25-60-3046UTL [Catalytic activity/Vol]66 U/S55-15GbsgclxkqUC Medical Centererum or plasma anion gap determinationOrdered By: Rd Brown on 99-60-9781Vlauj gap [Moles/Vol]19.4 mmol/L6.0-15.0[facility] Centererum or plasma aspartate aminotransferase measurement (enzymatic activity/volume)Ordered By: Rd Brown on 40-73-0076UPZ [Catalytic activity/Vol]20 U/R53-78WvddpllicUC Medical Centererum or plasma calcium measurement (mass/volume)Ordered By: Rd Brown on 43-58-4573Nmpnrlm [Mass/Vol]9.8 mg/dL8.2-10.2FOhioHealth Marion General Hospitalerum or plasma chloride measurement (moles/volume)Ordered By: Rd Brown on 01-06-2023 Chloride [Moles/Vol]91 mmol/I01-795EqysdgmvaUC Medical Centererum or plasma creatinine measurement with calculation of estimated glomerular filtr Ordered By: dR Brown on 73-90-6258Djmuymltin and Glomerular filtration rate.predicted panel (S/P/Bld)0.86 mg/dL0.44-1.03[facility] Centererum or plasma glucose measurement (mass/volume)Ordered By: Rd Brown on 01-24-6232Eboegxu [Mass/Vol]80 mg/tO23-879VupdcivnvVeterans Health Administration Serum or plasma potassium measurement (moles/volume)Ordered By: Rd Brown on 60-67-2421Ymrmxbhem [Moles/Vol]2.7 mmol/L3.5-5.1FOhioHealth Marion General Hospitalerum or plasma sodium measurement (moles/volume)Ordered By: Rd Brown on 61-30-2753Jukxur [Moles/Vol]132 mmol/X067-482FrmksusqpUC Medical Centererum or plasma total bilirubin measurement (mass/volume)Ordered By: Rd Brown on 28-53-5996Wotzkhlsu [Mass/Vol]1.5 mg/dL0.3-1.2FOhioHealth Marion General Hospitalerum or plasma total carbon dioxide measurement (moles/volume) Ordered By: Rd Brown on 70-39-6518FF0 [Moles/Vol]24.3 mmol/L22.0-30.0 [facility] Centererum or plasma urea nitrogen measurement (mass/volume)Ordered By: Rd Brown on 68-19-4872Gsdy nitrogen [Mass/Vol]19 mg/dL9-23UC Medical Centerpecific gravity Auto test strip (U) [Rel density]Ordered By: Rd Brown on 69-65-4965Pxyudibt gravity (U) [Rel density]1.0271.001-1.030[facility] Medical Centerquamous epithelial cells detection in urine sediment by light microscopyOrdered By: Rd Brown on 96-81-3898Zkuavpttok cells.squamous LM Ql (Urine sed)10-19 [HPF]0-2FMercy Health West HospitalTroponin I.cardiac [Mass/volume] in Serum or Plasma by High sensitivity methodOrdered By: Federico Randolph on 01-83-0342Zacfgide I.cardiac High sensitivity method [Mass/Vol]6 pg/mL0-15[facility] AdministrationUrine bacteria detection by automated methodOrdered By: Rd Brown on 84-15-2044Ozzfryna Auto Ql (U)1+None SeenVeterans Health AdministrationUrine clarity by refractometry automatedOrdered By: Rd Brown on 91-32-4160Xbfccow Refractometry automated (U)CloudyClearFMercy Health West HospitalUrine cocaine detectionOrdered By: Anette Stout on 01-06-2023 Cocaine Ql (U)NegativeNegativeVeterans Health AdministrationUrine glucose measurement by automated test strip (mass/volume)Ordered By: Rd Brown on 32-34-7076Hesykgu Auto test strip (U) [Mass/Vol]Normal mg/dLNoAvita Health System Ontario HospitalUrine hemoglobin detection by automated test stripOrdered By: Rd Brown on 09-33-3793Ogdsmqfvej Auto test strip Ql (U)3+Negative [facility] AdministrationUrine lactic acid measurementOrdered By: Rd Brown on 22-53-0448Kmmypys (U) [Moles/Vol]1.6 mmol/L0.5-2.2FMercy Health West HospitalUrine leukocyte esterase detection by automated test stripOrdered By: Rd Brown on 78-26-3321Looqcdqqx esterase Auto test strip Ql (U)2+ NegativeVeterans Health AdministrationUrobilinogen Auto test strip (U) [Mass/Vol]Ordered By: Rd Brown on 55-76-2638Cvbnqtzritvs (U) [Mass/Vol] Normal mg/dLNoAvita Health System Ontario HospitalWBC Auto (Bld) [#/Vol]Ordered By: Rd Brown on 58-57-1037YBH (Bld) [#/Vol]17.7 10*3/uL4.5-13.5FMercy Health West HospitalpH Auto test strip (U)Ordered By: Rd Brown on 84-25-1021fS (U)6.5 [pH]5.0-9.0[facility] AdministrationAlbumin [Mass/volume] in Serum or PlasmaOrdered By: Ravi Arguello on 83-95-5062Ievkfdx [Mass/Vol]5.0 g/dL3.2-5.5FMercy Health West HospitalAutomated erythrocytes count in urine sediment (number/area)Ordered By: Ravi Arguello on 95-47-8418CPD Auto (Urine sed) [#/Area]3-4 [HPF]0-4FMercy Health West HospitalAutomated leukocytes count in urine sediment (number/area)Ordered By: Ravi Arguello on 95-13-3741ALI Auto (Urine sed) [#/Area]50-100 [HPF]0-4FMercy Health West HospitalAutomated urine hyaline casts count (number/volume)Ordered By: Ravi Arguello on 01-51-5396Onvkfwp casts Auto (U) [#/Vol]None seen [LPF]0-1FMercy Health West HospitalBasophils Auto (Bld) [#/Vol]Ordered By: Ravi Arguello on 97-39-9073Nwtwwhtxv (Bld) [#/Vol]0.1 10*3/uL0.0-0.1FMercy Health West HospitalBasophils/100 WBC Auto (Bld)Ordered By: Ravi Arguello on 01-02-2023 Basophils/100 WBC (Bld)0.5 %.[facility] AdministrationBilirubin Test strip Ql (U)Ordered By: Ravi Arguello on 79-47-6899Wfzninnzp Ql (U)Negative NegativeVeterans Health AdministrationCasts typing in urine sediment by light microscopyOrdered By: Ravi Arguello on 10-47-7314Gqmla LM Nom (Urine sed)None seen [LPF]None SeenVeterans Health AdministrationColor Auto (U)Ordered By: Ravi Arguello on 26-65-9330Osrkk (U)YellowYellowVeterans Health Administration Eosinophils Auto (Bld) [#/Vol]Ordered By: Ravi Arguello on 91-87-1553Ghsabsimitc (Bld) [#/Vol]0.0 10*3/uL0.0-0.7FMercy Health West HospitalEosinophils/100 WBC Auto (Bld)Ordered By: Ravi Arguello on 94-33-5056Rlrmxkvlqym/100 WBC (Bld)0.0 %.[facility] AdministrationErythrocyte distribution width Auto (RBC) [Ratio]Ordered By: Ravi Arguello on 94-64-8574Osxhkiuguxx distribution width (RBC) [Ratio]13.9 %11.9-15.3FMercy Health West HospitalEstimated glomerular filtration rate (GFR) non- AmericanOrdered By: Ravi Arguello on 45-77-7777VIN/1.73 sq M.predicted among non-blacks MDRD (S/P/Bld) [Vol rate/Area]> 60 mL/MinVeterans Health AdministrationGlobulin Calc (S) [Mass/Vol]Ordered By: Ravi Arguello on 68-66-5372Yzzfhcme (S) [Mass/Vol]2.9 g/dL [facility] AdministrationHCG ( test) IA.rapid Ql (U)Ordered By: Ravi Arguello on 63-62-9984QLV ( test) Ql (U)NegativeVeterans Health AdministrationHematocrit Auto (Bld) [Volume fraction]Ordered By: Ravi Arguello on 39-04-5479Jkxwefxnuz (Bld) [Volume fraction]42.1 %36.0-46.0[facility] AdministrationHemoglobin [Mass/volume] in BloodOrdered By: Ravi Arguello on 27-04-9378Jqgvoortam (Bld) [Mass/Vol]14.0 g/dL12.0-16.0[facility] AdministrationKetones Auto test strip (U) [Mass/Vol]Ordered By: Ravi Arguello on 63-41-2515Uqcllcf (U) [Mass/Vol]3+NegativeVeterans Health Administration Leukocytes [#/volume] corrected for nucleated erythrocytes in Blood by Automated counOrdered By: Ravi Arguello on 56-55-4833PDD corrected for nucl RBC Auto (Bld) [#/Vol]14.1 10*3/uL4.5-13.5FMercy Health West HospitalLymphocytes Auto (Bld) [#/Vol]Ordered By: Ravi Arguello on 99-17-3395Pcfhkzqhmrh (Bld) [#/Vol]1.4 10*3/uL1.20-4.8[facility] AdministrationLymphocytes/100 WBC Auto (Bld) Ordered By: Ravi Arguello on 81-55-9537Obzfwbprhom/100 WBC (Bld)10.1 %.[facility] CenterH Auto (RBC) [Entitic mass]Ordered By: Ravi Arguello on 26-67-2457ZYS (RBC) [Entitic mass]28.6 pg25.0-35.0[facility] AdministrationMCHC Auto (RBC) [Mass/Vol]Ordered By: Ravi Arguello on 11-01-8427WLSH (RBC) [Mass/Vol]33.2 g/dL31.0-37.0[facility] AdministrationMCV Auto (RBC) [Entitic vol]Ordered By: Ravi Arguello on 37-96-1244DJY (RBC) [Entitic vol]86.2 rE39-988KjkwiidlnVeterans Health AdministrationMonocyte distribution width [Entitic volume] in Blood by AutomatedOrdered By: Ravi Arguello on 51-74-4592Qboqpcrw distribution width Auto (Bld) [Entitic vol]16.52 %0.00-20.00[facility] AdministrationMonocytes Auto (Bld) [#/Vol]Ordered By: Ravi Arguello on 01-02-2023 Monocytes (Bld) [#/Vol]1.0 10*3/uL0.1-1.00[facility] Monocytes/100 WBC Auto (Bld)Ordered By: Ravi Arguello on 34-66-9813Kgcekewng/100 WBC (Bld)7.0 %.[facility] AdministrationNeutrophils Auto (Bld) [#/Vol] Ordered By: Ravi Arguello on 62-19-4714Mdrhrtbvila (Bld) [#/Vol]11.6 10*3/uL 1.2-7.7FMercy Health West HospitalNeutrophils/100 WBC Auto (Bld)Ordered By: Ravi Arguello on 04-92-1571Jzhlkrotypy/100 WBC (Bld)82.4 %.[facility] AdministrationNitrite Test strip Ql (U)Ordered By: Ravi Arguello on 01-02-2023 Nitrite Ql (U)NegativeNegativeVeterans Health AdministrationNo Panel InformationOrdered By: Ravi Arguello on 01-02-2023> 60 mL/MinVeterans Health Administration29.0 U/M79-57GppqiahngVeterans Health Administration86.85[facility] AdministrationNucleated erythrocytes [Presence] in Blood by Automated countOrdered By: Ravi Arguello on 48-00-4571Mwqqzpsuu RBC Auto Ql (Bld)0.0 /100{WBC}0-0.5FMercy Health West HospitalPlatelet mean volume Auto (Bld) [Entitic vol]Ordered By: Ravi Arguello on 05-84-1506Swnsregt mean volume (Bld) [Entitic vol]8.4 fL6.3-10.7FMercy Health West HospitalPlatelets Auto (Bld) [#/Vol]Ordered By: Ravi Arguello on 40-22-9379Dkswyewww (Bld) [#/Vol]299 10*3/uL 150-450[facility] AdministrationProtein Auto test strip (U) [Mass/Vol] Ordered By: Ravi Arguello on 41-99-9154Jvcifmm (U) [Mass/Vol]100 mg/dLNegative Veterans Health AdministrationProtein [Mass/volume] in Serum or PlasmaOrdered By: Ravi Arguello on 34-08-2477Fbnevrs [Mass/Vol]7.9 g/dL6.1-7.9[facility] AdministrationRBC Auto (Bld) [#/Vol]Ordered By: Ravi Arguello on 61-51-6407KQC (Bld) [#/Vol]4.89 10*6/uL4.10-5.10UC Medical Centererum or plasma alanine aminotransferase measurement without P-5'-P (enzymatic activiOrdered By: Ravi Arguello on 58-62-8533OWT No additional P-5'-P [Catalytic activity/Vol]26 U/I58-71CyrxrgmzfUC Medical Centererum or plasma albumin/globulin mass ratioOrdered By: Ravi Arguello on 01-02-2023 Albumin/Globulin [Mass ratio]1.7 {ratio}[facility] Centererum or plasma alkaline phosphatase measurement (enzymatic activity/volume)Ordered By: Ravi Arguello on 66-85-2364MUI [Catalytic activity/Vol]60 U/N71-22RktqgjfupUC Medical Centererum or plasma anion gap determinationOrdered By: Ravi Arguello on 98-75-9497Huput gap [Moles/Vol]16.4 mmol/L6.0-15.0[facility] Centererum or plasma aspartate aminotransferase measurement (enzymatic activity/volume)Ordered By: Ravi Arguello on 63-19-4837KHR [Catalytic activity/Vol]32 U/F60-08PzfjeuerrUC Medical Centererum or plasma calcium measurement (mass/volume)Ordered By: Ravi Arguello on 42-78-3003Gxhagrp [Mass/Vol]9.8 mg/dL8.2-10.2FOhioHealth Marion General Hospitalerum or plasma chloride measurement (moles/volume)Ordered By: Ravi Arguello on 01-02-2023 Chloride [Moles/Vol]106 mmol/R07-160FspwogzoyUC Medical Centererum or plasma creatinine measurement with calculation of estimated glomerular filtr Ordered By: Ravi Arguello on 02-28-0385Alxdrqmbql and Glomerular filtration rate.predicted panel (S/P/Bld)1.01 mg/dL0.44-1.03[facility] Centererum or plasma glucose measurement (mass/volume)Ordered By: Ravi Arguello on 02-19-3343Yclkhoz [Mass/Vol]123 mg/oP10-881LbdczmbiqVeterans Health Administration Serum or plasma potassium measurement (moles/volume)Ordered By: Ravi Arguello on 55-48-6967Zjwmjcjut [Moles/Vol]3.2 mmol/L3.5-5.1FOhioHealth Marion General Hospitalerum or plasma sodium measurement (moles/volume)Ordered By: Ravi Arguello on 74-38-0323Ecwvry [Moles/Vol]142 mmol/K467-202XewwzfdtkUC Medical Centererum or plasma total bilirubin measurement (mass/volume)Ordered By: Ravi Arguello on 95-90-7497Ikzyyuoob [Mass/Vol]0.8 mg/dL0.3-1.2FOhioHealth Marion General Hospitalerum or plasma total carbon dioxide measurement (moles/volume) Ordered By: Ravi Arguello on 07-12-4070ZY7 [Moles/Vol]22.8 mmol/L22.0-30.0 [facility] Centererum or plasma urea nitrogen measurement (mass/volume)Ordered By: Ravi Arguello on 62-97-3307Xafz nitrogen [Mass/Vol]22 mg/dL9-23UC Medical Centerpecific gravity Auto test strip (U) [Rel density]Ordered By: Ravi Arguello on 80-92-3114Cdojignt gravity (U) [Rel density]1.0361.001-1.030UC Medical Centerquamous epithelial cells detection in urine sediment by light microscopyOrdered By: Ravi Arguello on 08-54-1763Qknsohziyo cells.squamous LM Ql (Urine sed)Innumerable [HPF]0-2 [facility] AdministrationUrine bacteria detection by automated method Ordered By: Ravi Arguello on 41-37-7784Dlchaibn Auto Ql (U)3+None SeenVeterans Health AdministrationUrine clarity by refractometry automatedOrdered By: Ravi Arguello on 31-46-6711Tmcllnx Refractometry automated (U)TurbidClear [facility] AdministrationUrine culture routineOrdered By: Ravi Arguello on 30-59-2796Kdfkjhaz identified Cx Nom (U)[facility] Urine glucose measurement by automated test strip (mass/volume)Ordered By: Ravi Arguello on 76-84-9023Caecdvt Auto test strip (U) [Mass/Vol]Normal mg/dL NormalVeterans Health AdministrationUrine hemoglobin detection by automated test stripOrdered By: Ravi Arguello on 02-33-4857Fpspyzejfj Auto test strip Ql (U)NegativeNegativeVeterans Health AdministrationUrine leukocyte esterase detection by automated test stripOrdered By: Ravi Arguello on 18-27-1123Maxkofdnm esterase Auto test strip Ql (U)3+NegativeVeterans Health Administration Urobilinogen Auto test strip (U) [Mass/Vol]Ordered By: Ravi Arguello on 03-50-0292Jmdsakyevrtl (U) [Mass/Vol]Normal mg/dLNormalVeterans Health AdministrationWBC Auto (Bld) [#/Vol]Ordered By: Ravi Arguello on 89-22-5183ZRY (Bld) [#/Vol]14.1 10*3/uL4.5-13.5[facility] CenterpH Auto test strip (U)Ordered By: Ravi Arguello on 85-29-1615kE (U)6.0 [pH]5.0-9.0[facility] AdministrationCULTURE URINEon 29-42-9187SZHAZNU URINECulture Observations: LIGHT GROWTH OF MIXED GENITAL JORI. NO POTENTIAL PATHOGENS SEEN.NormalKeenan Private HospitalComment on above:Performed By: #### URCX #### [facility] [address] [place] [address] Dr. Dacia AckermanCovid-19 PCR (CVDTB)on 01-47-8130PLYB-CoV-2 (COVID-19) RNA JANAK+probe Ql (Unsp spec)Not detectedNormalNOT DETECTEDThe [facility] Comment on above:Result Comment: When diagnostic [...] for this test is supported by the Boatbuilder Supervisor of Health and Human Service's declaration [...] longer be used).Performed By: #### CVDTBH #### [facility] [address] [place] [address] Dr. Dacia AckermanDRUG SCREEN RAPID (URINE)on 98-63-4801TATAqrfdqihEpmbxiHRHDTBXN [facility] HospitalComment on above:Performed By: #### DRUGRPD #### [facility] [address] [place] [address] Dr. Dacia AckermanBARNegativeNormalNEGATIVEThe [facility] HospitalComment on above: Performed By: #### DRUGRPD #### [facility] [address] [place] [address] Dr. Dacia CondonPNegativeNormalNEGATIVEKeenan Private HospitalComment on above: Performed By: #### DRUGRPD #### [facility] [address] [place] [address] Dr. Dacia MontanoZONegativeNormalNEGATIVEKeenan Private HospitalComment on above: Performed By: #### DRUGRPD #### [facility] [address] [place] [address] Dr. Dacia MonaeCNegativeNormalNEGATIVEKeenan Private HospitalComment on above: Performed By: #### DRUGRPD #### [facility] [address] [place] [address] Dr. Dacia LowryFostoria City HospitalComment on above: Result Comment: AMP (Amphetamine): 500ng/mL, BAR (Barbituates): 200 ng/mL, BZO (Benzodiazepines): 150 ng/mL, BUP (Buprenorphine): 10 ng/mL, MELINA (Cocaine): 150 ng/mL, mAMP (Methamphetamine): 500 ng/mL, MTD (Methadone): 200 ng/mL, OPI (Opiates): 100 ng/mL, OXY (Oxycodone): 100 ng/mL, PCP (Phencyclidine): 25 ng/mL, PPX (Propoxyphene): 300 ng/mL, THC (Cannabinoids): 50 ng/mL, TCA (Trycyclic Antidepressants): 300 ng/mLPerformed By: #### DRUGRPD #### [facility] [address] [place] [address] Dr. Dacia AckermanDRUG CUT HEADERDRUG CLASS TEST SYSTEM CUT-OFF CONCENTRATIONS ARE FOLLOWS:NormalThe [facility] HospitalComcorewell health butterworth hospital on above:Performed By: #### DRUGRPD #### [facility] [address] [place] [address] Dr. Dacia De La CruzMPNegativeNormalNEGATIVEKeenan Private HospitalComcorewell health butterworth hospital on above: Performed By: #### DRUGRPD #### [facility] [address] [place] [address] Dr. Yilan ChangMTDNegativeNormalNEGATIVEKeenan Private HospitalComment on above: Performed By: #### DRUGRPD #### [facility] [address] [address] [address] Dacia AckermanOPINegativeNormalNEGATIVEKeenan Private HospitalComcorewell health butterworth hospital on above: Performed By: #### DRUGRPD #### [facility] [address] [address] [address] Dacia AckermanOXYNegativeNormalNEGATIVEKeenan Private HospitalComcorewell health butterworth hospital on above: Performed By: #### DRUGRPD #### [facility] [address] [address] [address] Dacia AckermanPCPNegativeNormalNEGATIVEKeenan Private HospitalComcorewell health butterworth hospital on above: Performed By: #### DRUGRPD #### [facility] [address] [place] [address] Dr. aDcia AckermanPPXNegativeNormalNEGATIVEKeenan Private HospitalComcorewell health butterworth hospital on above: Performed By: #### DRUGRPD #### [facility] [address] [place] [address] Dr. Dacia AckermanTCANegativeNormalNEGATIVEKeenan Private HospitalComcorewell health butterworth hospital on above: Performed By: #### DRUGRPD #### [facility] [address] [place] [address] Dr. Dacia AckermanTHCPositiveAbnormalNEGATIVEKeenan Private HospitalComcorewell health butterworth hospital on above: Performed By: #### DRUGRPD #### [facility] [address] [place] [address] Dr. Dacia Delgado URINE PROFILEon 95-95-0001Rafsnvtah Ql (U)SMALLAbnormal NEGATIVEKeenan Private HospitalComcorewell health butterworth hospital on above:Performed By: #### PREGU, ERUR, UMICRO #### [facility] [address] [place] [address] Dr. Dacia AckermanClarity (U)CLEARNormalCLEARKeenan Private HospitalComcorewell health butterworth hospital on above: Performed By: #### PREGU, ERUR, UMICRO #### [facility] [address] [place], [place] [address] Dr. Dacia Brice (U)YELLOWNormalYELLOWKeenan Private HospitalComment on above: Performed By: #### PREGU, ERUR, UMICRO #### [facility] [address] [address] [address] Dacia Kate micrscopic examination will be performed if indicated. NormalThe [facility] HospitalComment on above:Performed By: #### PREGU, ERUR, UMICRO #### [facility] [address] [address] [address] Dacia AckermanGlucose Ql (U)NegativeNormalNEGATIVEKeenan Private HospitalComment on above:Performed By: #### PREGU, ERUR, UMICRO #### [facility] [address] [place] [address] Dr. Dacia AckermanHemoglobin Ql (U)NegativeNormalNEGATIVEDiley Ridge Medical Center on above:Performed By: #### PREGU, ERUR, UMICRO #### [facility] [address] [place] [address] Dr. Dacia AckermanKetones Ql (U)>=80AbnormalNEGATIVEKeenan Private HospitalComment on above:Performed By: #### PREGU, ERUR, UMICRO #### [facility] [address] [place] [address] Dr. Dacia AckermanLEUKOCYTESTRACEAbnormalNEGATIVEKeenan Private HospitalComment on above:Performed By: #### PREGU, ERUR, UMICRO #### [facility] [address] [place] [address] Dr. Dacia AckermanNitrite Ql (U)NegativeNormalNEGATIVEKeenan Private HospitalComment on above:Performed By: #### PREGU, ERUR, UMICRO #### [facility] [address] [address] [address] Dacia AckermanpH (U)7.5 [pH]Normal5-9The [facility] HospitalComment on above: Performed By: #### PREGU, ERUR, UMICRO #### [facility] [address] [place] [address] Dr. Dacia AckermanProtein (U) [Mass/Vol]100 mg/dLAbnormalNEGATIVE/ TRACEThe [facility] on above:Performed By: #### PREGPAULA Cash, UMICRO #### [facility] [address] [place] [address] Dr. Dacia AckermanSPEC GRAVITY1.533Tohefn8.005-<=1.025[facility] on above:Performed By: #### PREGCASANDRA CashR, UMICRO #### [facility] [address] [place] [address] Dr. Dacia Lyman MICRO INDINDICATEDTrinity Health SystemComcorewell health butterworth hospital on above: Performed By: #### PREGUCASANDRAR, UMICRO #### [facility] [address] [place] [address] Dr. Dacia Grey Qn (U)1.0 {Kaykay'U}/dLNormal0.2 - 1.0The [facility] on above:Performed By: #### PAULA MARTINES, UMICRO #### [facility] [address] [place] [address] Dr. Dacia Camara AND B AGon 67-48-2175QIGDHSTUQRSUGFort [facility] Hospital on above:Result Comment: Negative for Flu A protein angiten. Infection due to Flu A cannot be ruled out. FluA angiten in the sample may be below the detection limit of the test.Performed By: #### INFLUAB #### [facility] [address] [place] [address] Dr. Dacia ArguelloUBNEGHSEE [facility] on above: Result Comment: Negative for Flu B protein antigen. Infection due to Flu B cannot be ruled out. FluB antigen in the sample may be below the detection limit of the test.Performed By: #### INFLUAB #### [facility] [address] [place] [address] Dr. Yilan ChangINFLUENZA A AGNegativeNormalNEGATIVE SEE COMMENTKeenan Private HospitalComment on above:Performed By: #### INFLUAB #### [facility] [address] [address] [address] Dacia Wong B AGNegativeNormalNEGATIVE SEE COMMENTKeenan Private HospitalComment on above:Performed By: #### INFLUAB #### [facility] [address] [address] [address] Dacia ChowdhuryGNANCY URon 27-99-3382LERMXWHTF, QUALNegativeNormalNEGATIVEThe [facility] HospitalComment on above:Performed By: #### PREGU, ERUR, UMICRO #### [facility] [address] [place] [address] Dr. Dacia Hernandez MICROSCOPIC ONLYon 82-43-0249BRTFUQJVTQCQDBJJUfzcfecvHNKM SEENThe [facility] HospitalComment on above:Performed By: #### PREGU, ERUR, UMICRO #### [facility] [address] [place] [address] Dr. Dacia De Los Santos identified Cx Nom (U)INDICATEDTrinity Health SystemComcorewell health butterworth hospital on above:Performed By: #### PREGU, ERUR, UMICRO #### [facility] [address] [place] [address] Dr. Dacia AckermanCASTREX SEENNormalNONE SEENKeenan Private HospitalComcorewell health butterworth hospital on above:Performed By: #### PREGU, ERUR, UMICRO #### [facility] [address] [address] [address] Dacia Poole LM Nom (Urine sed)NONE SEENNormalNONE SEENKeenan Private HospitalComment on above:Performed By: #### PREGU, ERUR, UMICRO #### [facility] [address] [place] [address] Dr. Pederson ChangEkierrathelial cells LM Ql (Urine sed)MANYAbnormalNONE SEEN /RAREThe [facility] HospitalComment on above:Performed By: #### PREGU, ERUR, UMICRO #### [facility] [address] [place], [place] [address] Dr[address] Dacia AckermanMUCOUSSMALLAbnormalNONE SEENKeenan Private HospitalComment on above:Performed By: #### PAULA MARTINES UMICRO #### [facility] [address] [place], [place] [address] Dr. Dacia AckermanRBCNONE SEENAbnormal0-2The [facility] HospitalComment on above: Performed By: #### PAULA MARTINES UMICRO #### [facility] [address] [place], [place] [address] Dr. Pederson ChangWBC5-10AbnormalNONE SEENThe [facility] HospitalComment on above: Performed By: #### PAULA MARTINES UMICЕЛЕНА #### [facility] [address] [place], [place] [address] Dr. Dacia AckermanXR CHEST 1 Von 26-12-3578BD CHEST 1 VEXAM: XR CHEST 1 V [...] Electronically authenticated by: KIA ARVIZU Date: 2023-01-01 13:00Trinity Health SystemAutomated erythrocytes count in urine sediment (number/area) Ordered By: Federico Randolph on 47-59-6202NUO Auto (Urine sed) [#/Area]0-1 [HPF] 0-4FMercy Health West HospitalAutomated leukocytes count in urine sediment (number/area)Ordered By: Federico Randolph on 59-18-6921VTX Auto (Urine sed) [#/Area]20-49 [HPF]0-4FMercy Health West HospitalBacteria identified Cx Nom (U)Ordered By: Federico Randolph on 74-09-8403Pakhv culture routine Staphylococcus epidermidisVeterans Health AdministrationBilirubin Test strip Ql (U)Ordered By: Federico Randolph on 58-28-2007Yuikhcyaq Ql (U)NegativeNegative [facility] AdministrationCOVID-19 SOFIAOrdered By: Federico Randolph on 44-24-7318IQST-CoV+SARS-CoV-2 (COVID-19) Ag IA.rapid Ql (Resp)NegativeNegative [facility] AdministrationCasts typing in urine sediment by light microscopyOrdered By: Federico Randolph on 72-22-2404Grdyz LM Nom (Urine sed)None seen [LPF]None SeenVeterans Health AdministrationColor Auto (U)Ordered By: Federico Randolph on 69-11-0463Fbqbv (U)YellowYellowVeterans Health AdministrationHCG ( test) IA.rapid Ql (U)Ordered By: Federico Randolph on 28-80-6771XJX ( test) Ql (U)NegativeVeterans Health Administration Influenza virus A and B antigen detection by immunoassayOrdered By: Federico Randolph on 20-05-6644EOTFB+FLUBV Ag IA Ql (Unsp spec)[facility] AdministrationKetones Auto test strip (U) [Mass/Vol]Ordered By: Federico Randolph on 29-49-4730Metnpmi (U) [Mass/Vol]3+NegativeVeterans Health Administration Nitrite Test strip Ql (U)Ordered By: Federico Randolph on 59-11-5116Bugyoda Ql (U)NegativeNegLima City HospitalNo Panel InformationOrdered By: Federico Randolph on 96-55-0815Gwde seen [LPF]0-8[facility] AdministrationProtein Auto test strip (U) [Mass/Vol]Ordered By: Federico Randolph on 54-06-6670Hgaiczw (U) [Mass/Vol]100 mg/dLNegDayton Children's Hospitalpecific gravity Auto test strip (U) [Rel density]Ordered By: Federico Randolph on 45-48-0401Mbphpikp gravity (U) [Rel density]1.0261.001-1.030 [facility] Centerquamous epithelial cells detection in urine sediment by light microscopyOrdered By: Federico Randolph on 44-21-9189Sovwefznzw cells.squamous LM Ql (Urine sed)Innumerable [HPF]0-2FMercy Health West HospitalUrine bacteria detection by automated methodOrdered By: Federico Randolph on 30-17-3177Qdlzjhib Auto Ql (U)3+None SeenVeterans Health Administration Urine clarity by refractometry automatedOrdered By: Federico Randolph on 14-12-3341Ipkuccb Refractometry automated (U)TurbidCleUniversity Hospitals Portage Medical CenterUrine glucose measurement by automated test strip (mass/volume) Ordered By: Federico Randolph on 31-22-9718Pvnboaw Auto test strip (U) [Mass/Vol] Normal mg/dLNormCentervilleUrine hemoglobin detection by automated test stripOrdered By: Federico Randolph on 56-55-2015Gpirxtwdiw Auto test strip Ql (U)NegativeNegLima City HospitalUrine leukocyte esterase detection by automated test stripOrdered By: Federico Randolph on 49-38-5190Ymjmdedpf esterase Auto test strip Ql (U)2+NegativeVeterans Health AdministrationUrobilinogen Auto test strip (U) [Mass/Vol]Ordered By: Federico Randolph on 82-81-3136Avtuvjkxgyhs (U) [Mass/Vol]Normal mg/dLNoKettering Memorial HospitalpH Auto test strip (U)Ordered By: Federico Randolph on 12-29-8145qV (U)[pH]5.0-9.0[facility] Amphetamine Screen Ql (U)Ordered By: Corey Newberry on 17-12-6989Ayklswqamtfd Ql (U)NegativeNegativeVeterans Health AdministrationBarbiturates [Presence] in UrineOrdered By: Corey Newberry on 61-58-9905Ikublywklnid Ql (U)NegativeNegative [facility] AdministrationBasophils Auto (Bld) [#/Vol]Ordered By: Corey Newberry on 16-02-1169Bdchopavp (Bld) [#/Vol]0.0 10*3/uL0.0-0.1FMercy Health West HospitalBasophils/100 WBC Auto (Bld)Ordered By: Corey Newberry on 42-01-8898Yqfugnhej/100 WBC (Bld)0.3 %.[facility] Benzodiazepines [Presence] in UrineOrdered By: Corey Newberry on 11-09-2022 Benzodiazepines Ql (U)NegativeNegativeVeterans Health AdministrationBilirubin Test strip Ql (U)Ordered By: Corey Newberry on 83-68-9760Msjcuuxcc Ql (U) NegativeNegLima City HospitalBody fluid albumin measurement (mass/volume)Ordered By: Corey Newberry on 04-06-1304Lpyglxb (Body fld) [Mass/Vol]4.2 g/dL3.2-5.5FMercy Health West HospitalCannabinoids [Presence] in Urine by Screen methodOrdered By: Corey Newberry on 11-09-2022 Cannabinoids Screen Ql (U)PositiveNegativeVeterans Health AdministrationColor Auto (U)Ordered By: Corey Newberry on 01-68-6718Rkchm (U)YellowYellowVeterans Health AdministrationEosinophils Auto (Bld) [#/Vol]Ordered By: Corey Newberry on 27-95-8843Ppowoaoukbj (Bld) [#/Vol]0.1 10*3/uL0.0-0.7FMercy Health West HospitalEosinophils/100 WBC Auto (Bld)Ordered By: Corey Newberry on 59-19-7685Rwkltobjbyy/100 WBC (Bld)0.8 %.[facility] Erythrocyte distribution width Auto (RBC) [Ratio]Ordered By: Corey Newberry on 14-25-3171Yxtmqudnhaz distribution width (RBC) [Ratio]13.8 %11.9-15.3FMercy Health West HospitalEstimated glomerular filtration rate (GFR) non- AmericanOrdered By: Corey Newberry on 03-29-4432DGM/1.73 sq M.predicted among non-blacks MDRD (S/P/Bld) [Vol rate/Area]> 60 mL/MinVeterans Health AdministrationGlobulin Calc (S) [Mass/Vol]Ordered By: Corey Newberry on 11-09-2022 Globulin (S) [Mass/Vol]2.4 g/dLVeterans Health AdministrationHCG ( test) IA.rapid Ql (U)Ordered By: Corey Newberry on 65-45-6423USD ( test) Ql (U)NegativeVeterans Health AdministrationHematocrit Auto (Bld) [Volume fraction]Ordered By: Corey Newberry on 81-65-6710Qbzumkqjtx (Bld) [Volume fraction]41.0 %36.0-46.0[facility] AdministrationHemoglobin [Mass/volume] in BloodOrdered By: Corey Newberry on 22-08-8334Sgkgrdzvin (Bld) [Mass/Vol]13.4 g/dL12.0-16.0[facility] AdministrationKetones Auto test strip (U) [Mass/Vol]Ordered By: Corey Newberry on 90-57-6893Xwfkszf (U) [Mass/Vol]NegativeNegativeVeterans Health AdministrationLeukocytes [#/volume] corrected for nucleated erythrocytes in Blood by Automated counOrdered By: Corey Newberry on 01-98-3358JKQ corrected for nucl RBC Auto (Bld) [#/Vol]11.7 10*3/uL4.5-13.5FMercy Health West HospitalLymphocytes Auto (Bld) [#/Vol] Ordered By: Corey Newberry on 24-76-6304Hyngjpdmwzl (Bld) [#/Vol]1.4 10*3/uL 1.20-4.8[facility] AdministrationLymphocytes/100 WBC Auto (Bld)Ordered By: Corey Newberry on 41-30-8134Yyhvkydiwfn/100 WBC (Bld)12.1 %.[facility] Auto (RBC) [Entitic mass]Ordered By: Corey Newberry on 83-30-7214WYJ (RBC) [Entitic mass]28.1 pg25.0-35.0[facility] AdministrationMCHC Auto (RBC) [Mass/Vol]Ordered By: Corey Newberry on 57-96-6278XYNZ (RBC) [Mass/Vol]32.8 g/dL31.0-37.0[facility] AdministrationMCV Auto (RBC) [Entitic vol]Ordered By: Corey Newberry on 82-16-9806NDU (RBC) [Entitic vol]85.7 qA22-725IxzlerxrqVeterans Health AdministrationMonocyte distribution width [Entitic volume] in Blood by AutomatedOrdered By: Corey Newberry on 11-09-2022 Monocyte distribution width Auto (Bld) [Entitic vol]16.08 %0.00-20.00[facility] AdministrationMonocytes Auto (Bld) [#/Vol]Ordered By: Corey Newberry on 79-18-0860Oajpvbcrw (Bld) [#/Vol]0.5 10*3/uL0.1-1.00[facility] AdministrationMonocytes/100 WBC Auto (Bld)Ordered By: Corey Newberry on 11-09-2022 Monocytes/100 WBC (Bld)4.7 %.[facility] AdministrationNeutrophils Auto (Bld) [#/Vol]Ordered By: Corey Newberry on 61-96-7501Jebgobqgvxj (Bld) [#/Vol] 9.6 10*3/uL1.2-7.7FMercy Health West HospitalNeutrophils/100 WBC Auto (Bld)Ordered By: Corey Newberry on 97-20-2867Qqbvalalskj/100 WBC (Bld)82.1 %. [facility] AdministrationNitrite Test strip Ql (U)Ordered By: Corey Newberry on 51-13-4495Qcrxsgo Ql (U)NegativeNegativeVeterans Health AdministrationNo Panel InformationOrdered By: Corey Newberry on 59-87-8331Luxcqvsc NegativeVeterans Health Administration> 60 mL/MinVeterans Health Administration118.86[facility] AdministrationNucleated erythrocytes [Presence] in Blood by Automated countOrdered By: Corey Newberry on 45-52-2589Xwhbzpokr RBC Auto Ql (Bld)0.1 /100{WBC}0-0.5FMercy Health West HospitalPhencyclidine Screen Ql (U)Ordered By: Corey Newberry on 16-15-3270Agnpmcoxpaink Ql (U) NegativeNegLima City HospitalPlatelet mean volume Auto (Bld) [Entitic vol]Ordered By: Corey Newberry on 23-16-1309Mljoikyn mean volume (Bld) [Entitic vol]8.5 fL6.3-10.7FMercy Health West HospitalPlatelets Auto (Bld) [#/Vol]Ordered By: Corey Newberry on 78-27-1450Pgaujzihk (Bld) [#/Vol]274 10*3/mJ107-512CyjmadxerVeterans Health AdministrationProtein Auto test strip (U) [Mass/Vol]Ordered By: Corey Newberry on 57-14-2918Uywoqjc (U) [Mass/Vol]Negative NegativeVeterans Health AdministrationProtein [Mass/volume] in Serum or PlasmaOrdered By: Corey Newberry on 13-88-8634Wwgtuyn [Mass/Vol]6.6 g/dL6.1-7.9 [facility] AdministrationRBC Auto (Bld) [#/Vol]Ordered By: Corey Newberry on 20-59-0428EBS (Bld) [#/Vol]4.78 10*6/uL4.10-5.10UC Medical Centererum or plasma alanine aminotransferase measurement without P-5'-P (enzymatic activiOrdered By: Corey Newberry on 73-74-2101SUS No additional P-5'-P [Catalytic activity/Vol]67 U/T70-52PaxzvrwepUC Medical Centererum or plasma albumin/globulin mass ratioOrdered By: Corey Newberry on 18-43-7742Mcfrhot/Globulin [Mass ratio]1.8 {ratio}[facility] Medical Centererum or plasma alkaline phosphatase measurement (enzymatic activity/volume)Ordered By: Corey Newberry on 17-87-4083QAX [Catalytic activity/Vol]59 U/W36-42XdozfvohkUC Medical Centererum or plasma anion gap determinationOrdered By: Corey Newberry on 11-14-3672Zhgzk gap [Moles/Vol] 19.7 mmol/L6.0-15.0[facility] Centererum or plasma aspartate aminotransferase measurement (enzymatic activity/volume)Ordered By: Corey Newberry on 84-79-9687HDT [Catalytic activity/Vol]48 U/B97-81VfmtwwiyzUC Medical Centererum or plasma calcium measurement (mass/volume)Ordered By: Corey Newberry on 49-53-7375Pkjbcqt [Mass/Vol]9.6 mg/dL8.2-10.2FOhioHealth Marion General Hospitalerum or plasma chloride measurement (moles/volume) Ordered By: Corey Newberry on 11-15-6079Wljegbgx [Moles/Vol]98 mmol/L95-114 [facility]ererum or plasma creatinine measurement with calculation of estimated glomerular filtrOrdered By: Corey Newberry on 41-40-9985Jaqgcaegab and Glomerular filtration rate.predicted panel (S/P/Bld) 0.76 mg/dL0.44-1.03[facility] Centererum or plasma glucose measurement (mass/volume)Ordered By: Corey Newberry on 64-91-8596Tqzujmy [Mass/Vol]110 mg/uC13-733RmlompfffUC Medical Centererum or plasma potassium measurement (moles/volume)Ordered By: Corey Newberry on 11-09-2022 Potassium [Moles/Vol]3.4 mmol/L3.5-5.1FOhioHealth Marion General Hospitalerum or plasma sodium measurement (moles/volume)Ordered By: Corey Newberry on 11-09-2022 Sodium [Moles/Vol]137 mmol/R364-742NxeriiconUC Medical Centererum or plasma total bilirubin measurement (mass/volume)Ordered By: Corey Newberry on 13-20-4868Tzyapkjxf [Mass/Vol]0.5 mg/dL0.3-1.2FMercy Health West Hospital Serum or plasma total carbon dioxide measurement (moles/volume)Ordered By: Corey Newberry on 63-56-6963KW9 [Moles/Vol]22.7 mmol/L22.0-30.0[facility]ererum or plasma urea nitrogen measurement (mass/volume) Ordered By: Corey Newberry on 63-23-7989Odky nitrogen [Mass/Vol]3 mg/dL9-23 [facility] Centerpecific gravity Auto test strip (U) [Rel density]Ordered By: Corey Newberry on 72-35-7311Plmizpdz gravity (U) [Rel density]1.0091.001-1.030[facility] AdministrationUrine clarity by refractometry automatedOrdered By: Corey Newberry on 42-82-3269Vxxxgst Refractometry automated (U)ClearCleUniversity Hospitals Portage Medical CenterUrine cocaine detectionOrdered By: Corey Newberry on 14-82-6304Rqqfnox Ql (U)Negative NegativeVeterans Health AdministrationUrine glucose measurement by automated test strip (mass/volume)Ordered By: Corey Newberry on 52-83-3676Yumpvor Auto test strip (U) [Mass/Vol]Normal mg/dLNormalVeterans Health Administration Urine hemoglobin detection by automated test stripOrdered By: Corey Newberry on 54-33-4492Tmdeckebbw Auto test strip Ql (U)NegativeNegativeVeterans Health AdministrationUrine leukocyte esterase detection by automated test stripOrdered By: Corey Newberry on 30-64-8331Kbxsihgmc esterase Auto test strip Ql (U) NegativeNegativeVeterans Health AdministrationUrobilinogen Auto test strip (U) [Mass/Vol]Ordered By: Corey Newberry on 76-56-3239Gxjyoonuzslq (U) [Mass/Vol]Normal mg/dLNormalVeterans Health AdministrationWBC Auto (Bld) [#/Vol]Ordered By: Corey Newberry on 87-59-5928JAI (Bld) [#/Vol]11.7 10*3/uL 4.5-13.5FMercy Health West HospitalpH Auto test strip (U)Ordered By: Corey Newberry on 63-16-9034bW (U)[pH]5.0-9.0[facility] Albumin [Mass/volume] in Serum or PlasmaOrdered By: Art Bianchi on 11-07-2022 Albumin [Mass/Vol]4.6 g/dL3.2-5.5FMercy Health West HospitalAutomated erythrocytes count in urine sediment (number/area)Ordered By: Art Bianchi on 40-40-0392SIW Auto (Urine sed) [#/Area]0-1 [HPF]0-4FMercy Health West HospitalAutomated leukocytes count in urine sediment (number/area)Ordered By: Art Bianchi on 85-87-8599FFC Auto (Urine sed) [#/Area]3-4 [HPF]0-4FMercy Health West HospitalBasophils Auto (Bld) [#/Vol]Ordered By: Art Bianchi on 50-80-2775Eafaisxwn (Bld) [#/Vol]0.1 10*3/uL0.0-0.1FMercy Health West HospitalBasophils/100 WBC Auto (Bld)Ordered By: Art Bianchi on 11-07-2022 Basophils/100 WBC (Bld)1.0 %.[facility] AdministrationBilirubin Test strip Ql (U)Ordered By: Art Bianchi on 02-05-8048Cvbeqhswt Ql (U)Negative NegativeVeterans Health AdministrationColor Auto (U)Ordered By: Art Bianchi on 98-93-9711Rpkvd (U)YellowYellowVeterans Health AdministrationEosinophils Auto (Bld) [#/Vol]Ordered By: Art Bianchi on 57-98-7106Jqznzeqsjhp (Bld) [#/Vol] 0.1 10*3/uL0.0-0.7FMercy Health West HospitalEosinophils/100 WBC Auto (Bld)Ordered By: Art Bianchi on 63-76-0485Xbgfdeyvslc/100 WBC (Bld)1.2 %. [facility] AdministrationErythrocyte distribution width Auto (RBC) [Ratio]Ordered By: Art Bianchi on 16-77-5347Zyyzkowsgav distribution width (RBC) [Ratio]14.0 %11.9-15.3FMercy Health West HospitalEstimated glomerular filtration rate (GFR) non- AmericanOrdered By: Art Bianchi on 11-07-2022 GFR/1.73 sq M.predicted among non-blacks MDRD (S/P/Bld) [Vol rate/Area]> 60 mL/MinVeterans Health AdministrationGlobulin Calc (S) [Mass/Vol]Ordered By: Art Bianchi on 92-54-8859Cgptfppk (S) [Mass/Vol]2.7 g/dLVeterans Health AdministrationHCG ( test) IA.rapid Ql (U)Ordered By: Art Bianchi on 68-39-8175ZRW ( test) Ql (U)NegativeVeterans Health Administration Hematocrit Auto (Bld) [Volume fraction]Ordered By: Art Bianchi on 11-07-2022 Hematocrit (Bld) [Volume fraction]43.2 %36.0-46.0[facility] AdministrationHemoglobin [Mass/volume] in BloodOrdered By: Art Bianchi on 11-07-2022 Hemoglobin (Bld) [Mass/Vol]14.8 g/dL12.0-16.0[facility] Ketones Auto test strip (U) [Mass/Vol]Ordered By: Art Bianchi on 11-07-2022 Ketones (U) [Mass/Vol]1+NegativeVeterans Health AdministrationLeukocytes [#/volume] corrected for nucleated erythrocytes in Blood by Automated coun Ordered By: Art Bianchi on 17-05-4259QBO corrected for nucl RBC Auto (Bld) [#/Vol]10.3 10*3/uL4.5-13.5FMercy Health West HospitalLymphocytes Auto (Bld) [#/Vol]Ordered By: Art Bianchi on 16-97-4025Zxiokcuwlhz (Bld) [#/Vol]2.1 10*3/uL1.20-4.8[facility] AdministrationLymphocytes/100 WBC Auto (Bld) Ordered By: Art Bianchi on 65-36-3651Iblijnxykrn/100 WBC (Bld)20.8 %.[facility] Auto (RBC) [Entitic mass]Ordered By: Art Bianchi on 54-53-9258UEY (RBC) [Entitic mass]28.8 pg25.0-35.0[facility] AdministrationMCHC Auto (RBC) [Mass/Vol]Ordered By: Art Bianchi on 14-07-6255HLDP (RBC) [Mass/Vol]34.3 g/dL31.0-37.0[facility] AdministrationMCV Auto (RBC) [Entitic vol]Ordered By: Art Bianchi on 95-11-9207NXO (RBC) [Entitic vol]84.1 fL 78-102[facility] AdministrationMonocyte distribution width [Entitic volume] in Blood by AutomatedOrdered By: Art Bianchi on 79-48-0512Ijydtrkp distribution width Auto (Bld) [Entitic vol]17.07 %0.00-20.00[facility] AdministrationMonocytes Auto (Bld) [#/Vol]Ordered By: Art Bianchi on 11-07-2022 Monocytes (Bld) [#/Vol]0.8 10*3/uL0.1-1.00[facility] Monocytes/100 WBC Auto (Bld)Ordered By: Art Bianchi on 00-30-6722Itzsmhosa/100 WBC (Bld)8.1 %.[facility] AdministrationNeutrophils Auto (Bld) [#/Vol] Ordered By: Art Bianchi on 27-22-6351Fqdrjyoyzkw (Bld) [#/Vol]7.1 10*3/uL1.2-7.7 [facility] AdministrationNeutrophils/100 WBC Auto (Bld)Ordered By: Art Bianchi on 31-91-2946Tydhyxhdbyq/100 WBC (Bld)68.9 %.[facility] AdministrationNitrite Test strip Ql (U)Ordered By: Art Bianchi on 31-52-1549Maljvdl Ql (U)NegativeNegativeVeterans Health AdministrationNo Panel InformationOrdered By: Art Bianchi on 59-28-96642-8 [LPF]0-8[facility]> 60 mL/MinVeterans Health Administration43.0 U/Z22-28GjttiezabVeterans Health Administration104.35[facility] AdministrationNucleated erythrocytes [Presence] in Blood by Automated countOrdered By: Art Bianchi on 26-18-8437Jkaiwqtrw RBC Auto Ql (Bld)0.3 /100{WBC}0-0.5FMercy Health West HospitalPlatelet mean volume Auto (Bld) [Entitic vol]Ordered By: Art Bianchi on 94-94-2203Tvjhteux mean volume (Bld) [Entitic vol]8.4 fL6.3-10.7FMercy Health West Hospital Platelets Auto (Bld) [#/Vol]Ordered By: Art Bianchi on 09-88-7330Ijnenqped (Bld) [#/Vol]308 10*3/aV620-728OgkhitcwjVeterans Health AdministrationProtein Auto test strip (U) [Mass/Vol]Ordered By: Art Bianchi on 74-54-8040Xntwlmy (U) [Mass/Vol] Trace mg/dLNegLima City HospitalProtein [Mass/volume] in Serum or PlasmaOrdered By: Art Bianchi on 50-56-0668Obvqons [Mass/Vol]7.3 g/dL 6.1-7.9[facility] AdministrationRBC Auto (Bld) [#/Vol]Ordered By: Art Bianchi on 84-73-5979NIO (Bld) [#/Vol]5.14 10*6/uL4.10-5.10[facility] Centererum or plasma alanine aminotransferase measurement without P-5'-P (enzymatic activiOrdered By: Art Bianchi on 84-03-9862PWF No additional P-5'-P [Catalytic activity/Vol]24 U/M38-45DgxaipflyUC Medical Centererum or plasma albumin/globulin mass ratioOrdered By: Art Bianchi on 11-07-2022 Albumin/Globulin [Mass ratio]1.7 {ratio}[facility] Centererum or plasma alkaline phosphatase measurement (enzymatic activity/volume)Ordered By: Art Bianchi on 46-12-5312TVG [Catalytic activity/Vol]60 U/Q57-34YhzlwcxudUC Medical Centererum or plasma anion gap determinationOrdered By: Art Bianchi on 14-74-9103Mynlm gap [Moles/Vol]12.2 mmol/L6.0-15.0[facility]ererum or plasma aspartate aminotransferase measurement (enzymatic activity/volume)Ordered By: Art Bianchi on 74-31-7793LJS [Catalytic activity/Vol]25 U/K41-98AhniovcegUC Medical Centererum or plasma calcium measurement (mass/volume)Ordered By: Art Bianchi on 23-26-7035Vrifwcw [Mass/Vol] 9.6 mg/dL8.2-10.2FOhioHealth Marion General Hospitalerum or plasma chloride measurement (moles/volume)Ordered By: Art Bianchi on 56-04-9750Gcogcbch [Moles/Vol]98 mmol/L25-637GnhqgfjakUC Medical Centererum or plasma creatinine measurement with calculation of estimated glomerular filtrOrdered By: Art Bianchi on 35-45-2448Gwsphokept and Glomerular filtration rate.predicted panel (S/P/Bld)0.84 mg/dL0.44-1.03[facility]ererum or plasma glucose measurement (mass/volume)Ordered By: Art Bianchi on 11-07-2022 Glucose [Mass/Vol]106 mg/bB52-965WzjfsswcvUC Medical Centererum or plasma potassium measurement (moles/volume)Ordered By: Art Bianchi on 11-07-2022 Potassium [Moles/Vol]3.2 mmol/L3.5-5.1FOhioHealth Marion General Hospitalerum or plasma sodium measurement (moles/volume)Ordered By: Art Bianhci on 11-07-2022 Sodium [Moles/Vol]132 mmol/N269-647YylgbupojUC Medical Centererum or plasma total bilirubin measurement (mass/volume)Ordered By: Art Bianchi 12-74-5615Hrcrmoqjv [Mass/Vol]0.8 mg/dL0.3-1.2FMercy Health West Hospital Serum or plasma total carbon dioxide measurement (moles/volume)Ordered By: Art Bianchi on 02-44-8122JX7 [Moles/Vol]25.0 mmol/L22.0-30.0[facility]ererum or plasma urea nitrogen measurement (mass/volume)Ordered By: Art Bianchi on 09-84-3487Inuj nitrogen [Mass/Vol]6 mg/dL9-23[facility] Centerpecific gravity Auto test strip (U) [Rel density]Ordered By: Art Bianchi on 71-21-1081Ccrgycbl gravity (U) [Rel density]1.0141.001-1.030 [facility] Centerquamous epithelial cells detection in urine sediment by light microscopyOrdered By: Art Bianchi on 07-24-5876Hsxnrybdlo cells.squamous LM Ql (Urine sed)5-9 [HPF]0-2FMercy Health West Hospital Urine bacteria detection by automated methodOrdered By: Art Bianchi on 96-49-0749Khplxjud Auto Ql (U)None seenNone SeenVeterans Health AdministrationUrine clarity by refractometry automatedOrdered By: Art Bianchi on 77-88-6567Grbmakq Refractometry automated (U)ClearCleUniversity Hospitals Portage Medical CenterUrine glucose measurement by automated test strip (mass/volume) Ordered By: Art Bianchi on 38-58-7692Xwvaayy Auto test strip (U) [Mass/Vol] Normal mg/dLNormalVeterans Health AdministrationUrine hemoglobin detection by automated test stripOrdered By: Art Bianchi on 18-70-8708Tumfewgahz Auto test strip Ql (U)NegativeNegLima City HospitalUrine leukocyte esterase detection by automated test stripOrdered By: Art Bianchi on 11-07-2022 Leukocyte esterase Auto test strip Ql (U)NegativeNegLima City HospitalUrobilinogen Auto test strip (U) [Mass/Vol]Ordered By: Art Bianchi on 14-07-5164Lakotntiijpm (U) [Mass/Vol]Normal mg/dLNormalVeterans Health AdministrationWBC Auto (Bld) [#/Vol]Ordered By: Art Bianchi on 53-36-1861ACS (Bld) [#/Vol]10.3 10*3/uL4.5-13.5FMercy Health West HospitalpH Auto test strip (U)Ordered By: Art Bianchi on 08-68-4861fB (U)8.5 [pH]5.0-9.0[facility] AdministrationUrine culture routineOrdered By: Colten Fry on 99-89-2013Tikxfuge identified Cx Nom (U)2 DaysVeterans Health Administration Albumin [Mass/volume] in Serum or PlasmaOrdered By: Colten Fry on 11-02-2022 Albumin [Mass/Vol]4.8 g/dL3.2-5.5FMercy Health West HospitalAmphetamine Screen Ql (U)Ordered By: Colten Fry on 66-56-0927Oqzhdmrynbbm Ql (U)Negative NegativeVeterans Health AdministrationAutomated erythrocytes count in urine sediment (number/area)Ordered By: Colten Fry on 14-49-5122BDH Auto (Urine sed) [#/Area]20-49 [HPF]0-4FMercy Health West HospitalAutomated leukocytes count in urine sediment (number/area)Ordered By: Colten Fry on 58-07-3059YDW Auto (Urine sed) [#/Area]5-9 [HPF]0-4FMercy Health West Hospital Barbiturates [Presence] in UrineOrdered By: Colten Fry on 11-02-2022 Barbiturates Ql (U)NegativeNegativeVeterans Health AdministrationBasophils Auto (Bld) [#/Vol]Ordered By: Colten Fry on 36-29-7303Ldiqxhwez (Bld) [#/Vol] 0.1 10*3/uL0.0-0.1FMercy Health West HospitalBasophils/100 WBC Auto (Bld) Ordered By: Colten Fry on 54-76-8398Zvueyktoq/100 WBC (Bld)0.5 %.[facility] AdministrationBenzodiazepines [Presence] in UrineOrdered By: Colten Fry on 44-46-0172Zscumbpcfoziqsj Ql (U)NegativeNegativeVeterans Health AdministrationBilirubin Test strip Ql (U)Ordered By: Colten Fry on 11-02-2022 Bilirubin Ql (U)NegativeNegLima City HospitalCannabinoids [Presence] in Urine by Screen methodOrdered By: Colten Fry on 11-02-2022 Cannabinoids Screen Ql (U)PositiveNegativeVeterans Health AdministrationColor Auto (U)Ordered By: Colten Fry on 06-89-5249Vkoip (U)YellowYellowVeterans Health AdministrationEosinophils Auto (Bld) [#/Vol]Ordered By: Cloten Fry on 48-93-8592Ecqhwncgfed (Bld) [#/Vol]0.3 10*3/uL0.0-0.7FMercy Health West HospitalEosinophils/100 WBC Auto (Bld)Ordered By: Colten Fry on 49-22-1042Gzcvxycbbwv/100 WBC (Bld)2.1 %.[facility] Erythrocyte distribution width Auto (RBC) [Ratio]Ordered By: Colten Fry on 03-11-6485Ndhhppxjwpn distribution width (RBC) [Ratio]13.7 %11.9-15.3FMercy Health West HospitalEstimated glomerular filtration rate (GFR) non- AmericanOrdered By: Colten Fry on 15-09-9953DXD/1.73 sq M.predicted among non-blacks MDRD (S/P/Bld) [Vol rate/Area]> 60 mL/MinVeterans Health AdministrationGlobulin Calc (S) [Mass/Vol]Ordered By: Colten Fry on 11-02-2022 Globulin (S) [Mass/Vol]3.1 g/dLVeterans Health AdministrationHCG ( test) IA.rapid Ql (U)Ordered By: Colten Fry on 36-37-0173YEC ( test) Ql (U)NegativeVeterans Health AdministrationHematocrit Auto (Bld) [Volume fraction]Ordered By: Colten Fry on 36-38-8738Emgdkidsgh (Bld) [Volume fraction]45.3 %36.0-46.0[facility] AdministrationHemoglobin [Mass/volume] in BloodOrdered By: Colten Fry on 63-13-8063Urpnlaroum (Bld) [Mass/Vol]15.4 g/dL12.0-16.0[facility] AdministrationKetones Auto test strip (U) [Mass/Vol]Ordered By: Colten Fry on 35-27-2545Dklltrh (U) [Mass/Vol]3+NegativeVeterans Health AdministrationLeukocytes [#/volume] corrected for nucleated erythrocytes in Blood by Automated counOrdered By: Colten Fry on 44-26-5152DHK corrected for nucl RBC Auto (Bld) [#/Vol]11.7 10*3/uL4.5-13.5FMercy Health West HospitalLymphocytes Auto (Bld) [#/Vol] Ordered By: Colten Fry on 42-44-0747Rhmlrucxxlg (Bld) [#/Vol]2.3 10*3/uL 1.20-4.8[facility] AdministrationLymphocytes/100 WBC Auto (Bld)Ordered By: Colten Fry on 77-54-6355Eeqoqeniyzf/100 WBC (Bld)19.6 %.[facility] Auto (RBC) [Entitic mass]Ordered By: Colten Fry on 71-88-4947FZY (RBC) [Entitic mass]28.4 pg25.0-35.0[facility] AdministrationMCHC Auto (RBC) [Mass/Vol]Ordered By: Colten Fry on 33-20-9814IFWT (RBC) [Mass/Vol]34.0 g/dL31.0-37.0[facility] AdministrationMCV Auto (RBC) [Entitic vol]Ordered By: Colten Fry on 27-54-9550KZL (RBC) [Entitic vol]83.3 bR85-409LxmwxyfasVeterans Health AdministrationMonocytes Auto (Bld) [#/Vol] Ordered By: Colten Fry on 68-78-6666Rbrbzwsts (Bld) [#/Vol]1.0 10*3/uL 0.1-1.00[facility] AdministrationMonocytes/100 WBC Auto (Bld)Ordered By: Colten Fry on 98-73-8269Ujbighubb/100 WBC (Bld)8.5 %.[facility] AdministrationNeutrophils Auto (Bld) [#/Vol]Ordered By: Colten Fry on 23-37-3957Mmpcpqwteqd (Bld) [#/Vol]8.1 10*3/uL1.2-7.7FMercy Health West HospitalNeutrophils/100 WBC Auto (Bld)Ordered By: Colten Fry on 11-02-2022 Neutrophils/100 WBC (Bld)69.3 %.[facility] AdministrationNitrite Test strip Ql (U)Ordered By: Colten Fry on 52-46-6739Zlqwdrl Ql (U)Negative NegativeVeterans Health AdministrationNo Panel InformationOrdered By: Colten Fry on -19 [LPF]0-8[facility] AdministrationNegative [facility]> 60 mL/MinVeterans Health Administration100.26[facility] AdministrationNo Panel InformationOrdered By: Robert Bolanos on .6 mg/dL1.6-2.6FMercy Health West Hospital Nucleated erythrocytes [Presence] in Blood by Automated countOrdered By: Colten Fry on 34-55-6497Jywyebzlj RBC Auto Ql (Bld)0.1 /100{WBC}0-0.5FMercy Health West HospitalPhencyclidine Screen Ql (U)Ordered By: Colten Fry on 11-97-8126Eqivpqcdyaydr Ql (U)NegativeNegLima City Hospital Platelet mean volume Auto (Bld) [Entitic vol]Ordered By: Colten Fry on 97-40-5133Rgjwyxyp mean volume (Bld) [Entitic vol]7.9 fL6.3-10.7FMercy Health West HospitalPlatelets Auto (Bld) [#/Vol]Ordered By: Colten Fry on 03-79-2627Xswihonom (Bld) [#/Vol]292 10*3/xO943-094TckagtejpVeterans Health AdministrationProtein Auto test strip (U) [Mass/Vol]Ordered By: Colten Fry on 92-48-3592Rdsilhk (U) [Mass/Vol]30 mg/dLNegativeVeterans Health AdministrationProtein [Mass/volume] in Serum or PlasmaOrdered By: Colten Fry on 85-33-0527Mpebncs [Mass/Vol]7.9 g/dL6.1-7.9[facility] AdministrationRBC Auto (Bld) [#/Vol]Ordered By: Colten Fry on 98-48-1180IRI (Bld) [#/Vol]5.43 10*6/uL4.10-5.10[facility] Centererum or plasma alanine aminotransferase measurement without P-5'-P (enzymatic activiOrdered By: Colten Fry on 78-59-6683BVP No additional P-5'-P [Catalytic activity/Vol]20 U/L10-60 [facility] Centererum or plasma albumin/globulin mass ratio Ordered By: Colten Fry on 54-82-2959Bpjumtg/Globulin [Mass ratio]1.5 {ratio} [facility] Centererum or plasma alkaline phosphatase measurement (enzymatic activity/volume)Ordered By: Colten Fry on 11-02-2022 ALP [Catalytic activity/Vol]65 U/Y94-73XyqclvmtiUC Medical Centererum or plasma anion gap determinationOrdered By: Colten Fry on 28-08-9152Tbpjd gap [Moles/Vol]14.6 mmol/L6.0-15.0[facility] Centererum or plasma aspartate aminotransferase measurement (enzymatic activity/volume)Ordered By: Colten Fry on 54-17-1816XCR [Catalytic activity/Vol]19 U/J76-23OouotvqvuUC Medical Centererum or plasma calcium measurement (mass/volume)Ordered By: Colten Fry on 84-90-6592Ptisktw [Mass/Vol]9.6 mg/dL8.2-10.2FOhioHealth Marion General Hospitalerum or plasma chloride measurement (moles/volume) Ordered By: Colten Fry on 14-22-7446Rbqeenaq [Moles/Vol]95 mmol/L95-114 [facility] Centererum or plasma creatinine measurement with calculation of estimated glomerular filtrOrdered By: Colten Fry on 11-02-2022 Creatinine and Glomerular filtration rate.predicted panel (S/P/Bld)0.88 mg/dL 0.44-1.03[facility] Centererum or plasma glucose measurement (mass/volume)Ordered By: Colten Fry on 19-25-8884Eujnhew [Mass/Vol]95 mg/dL 70-100[facility] Centererum or plasma potassium measurement (moles/volume)Ordered By: Colten Fry on 63-24-9660Ssbpjldha [Moles/Vol]2.9 mmol/L3.5-5.1FOhioHealth Marion General Hospitalerum or plasma sodium measurement (moles/volume)Ordered By: Colten Fry on 52-87-8563Getpoe [Moles/Vol]134 mmol/Z736-608NnjsgkvcrUC Medical Centererum or plasma total bilirubin measurement (mass/volume)Ordered By: Colten Fry on 19-30-5817Ongjuvfqs [Mass/Vol]1.8 mg/dL0.3-1.2FOhioHealth Marion General Hospitalerum or plasma total carbon dioxide measurement (moles/volume)Ordered By: Colten Fry on 00-08-7893PS3 [Moles/Vol]27.3 mmol/L22.0-30.0[facility] Serum or plasma urea nitrogen measurement (mass/volume)Ordered By: Colten rFy on 63-80-6068Xbsb nitrogen [Mass/Vol]24 mg/dL9-23[facility] Centerpecific gravity Auto test strip (U) [Rel density]Ordered By: Colten Fry on 65-57-3276Bnmysrys gravity (U) [Rel density]1.0251.001-1.030[facility] Centerquamous epithelial cells detection in urine sediment by light microscopyOrdered By: Colten Fry on 03-39-0072Gdmzwwmvdc cells.squamous LM Ql (Urine sed)10-19 [HPF]0-[address] [place], [place] [address]Urine bacteria detection by automated methodOrdered By: Colten Fry on 18-76-5750Mtgjfkrd Auto Ql (U)None seenNone SeenVeterans Health AdministrationUrine clarity by refractometry automatedOrdered By: Colten Fry on 47-39-3202Munzgpb Refractometry automated (U)CloudyClearFMercy Health West HospitalUrine cocaine detectionOrdered By: Colten Fry on 51-24-0861Qubycgr Ql (U)Negative NegativeVeterans Health AdministrationUrine culture routineOrdered By: Colten Fry on 68-08-8504Oqmbzfki identified Cx Nom (U)2 DaysVeterans Health AdministrationUrine culture routineOrdered By: Art Bianchi on 95-07-2278Zejypjft identified Cx Nom (U)2 DaysVeterans Health AdministrationUrine glucose measurement by automated test strip (mass/volume)Ordered By: Colten Fry on 98-00-7967Xghmomo Auto test strip (U) [Mass/Vol]Normal mg/dLNoAvita Health System Ontario HospitalUrine hemoglobin detection by automated test stripOrdered By: Colten Fry on 02-78-9870Oqgyhiqdxq Auto test strip Ql (U)3+Negative [facility] AdministrationUrine leukocyte esterase detection by automated test stripOrdered By: Colten Fry on 74-37-5822Ytvmqmyqs esterase Auto test strip Ql (U)2+NegativeVeterans Health AdministrationUrobilinogen Auto test strip (U) [Mass/Vol]Ordered By: Colten Fry on 06-90-6152Sfxglimjoacc (U) [Mass/Vol]Normal mg/dLNoAvita Health System Ontario HospitalWBC Auto (Bld) [#/Vol]Ordered By: Colten Fry on 91-09-4089SLS (Bld) [#/Vol]11.7 10*3/uL 4.5-13.5FMercy Health West HospitalpH Auto test strip (U)Ordered By: Colten Fry on 38-63-3006zY (U)7.0 [pH]5.0-9.0[facility] AdministrationAlbumin [Mass/volume] in Serum or PlasmaOrdered By: Art Bianchi on 90-88-1344Oezofbs [Mass/Vol]5.1 g/dL3.2-5.5FMercy Health West Hospital Automated erythrocytes count in urine sediment (number/area)Ordered By: Art Bianchi on 66-31-2196AZD Auto (Urine sed) [#/Area]Innumerable [HPF]0-4FMercy Health West HospitalAutomated leukocytes count in urine sediment (number/area)Ordered By: Art Bianchi on 97-98-2239MWN Auto (Urine sed) [#/Area] 10-19 [HPF]0-4FMercy Health West HospitalBasophils Auto (Bld) [#/Vol] Ordered By: Art Bianchi on 77-39-8769Nkkascrfn (Bld) [#/Vol]0.0 10*3/uL0.0-0.1 [facility] AdministrationBasophils/100 WBC Auto (Bld)Ordered By: Art Bianchi on 07-16-4635Kgttxpcic/100 WBC (Bld)0.3 %.[facility] AdministrationBilirubin Test strip Ql (U)Ordered By: Art Bianchi on 04-52-6447Mvefvjgvd Ql (U)NegativeNegativeVeterans Health AdministrationColor Auto (U)Ordered By: Art Bianchi on 88-65-2044Sxhoj (U)RedYellowVeterans Health Administration Eosinophils Auto (Bld) [#/Vol]Ordered By: Art Bianchi on 12-98-5868Ptgpghbloif (Bld) [#/Vol]0.1 10*3/uL0.0-0.7FMercy Health West HospitalEosinophils/100 WBC Auto (Bld)Ordered By: Art Bianchi on 66-73-3910Rmtxrxefcsq/100 WBC (Bld)1.0 %.[facility] AdministrationErythrocyte distribution width Auto (RBC) [Ratio]Ordered By: Art Bianchi on 25-35-9119Hprhevckgrq distribution width (RBC) [Ratio]14.0 %11.9-15.3FMercy Health West HospitalEstimated glomerular filtration rate (GFR) non- AmericanOrdered By: Art Bianchi on 10-31-2022 GFR/1.73 sq M.predicted among non-blacks MDRD (S/P/Bld) [Vol rate/Area]> 60 mL/MinVeterans Health AdministrationGlobulin Calc (S) [Mass/Vol]Ordered By: Art Bianchi on 14-31-7219Rscxmhaq (S) [Mass/Vol]3.1 g/dLVeterans Health AdministrationHCG ( test) IA.rapid Ql (U)Ordered By: Art Bianchi on 17-58-2546DZI ( test) Ql (U)NegativeVeterans Health Administration Hematocrit Auto (Bld) [Volume fraction]Ordered By: Art Bianchi on 10-31-2022 Hematocrit (Bld) [Volume fraction]45.0 %36.0-46.0[facility] AdministrationHemoglobin [Mass/volume] in BloodOrdered By: Art Bianchi on 10-31-2022 Hemoglobin (Bld) [Mass/Vol]15.2 g/dL12.0-16.0[facility] Ketones Auto test strip (U) [Mass/Vol]Ordered By: Art Bianchi on 10-31-2022 Ketones (U) [Mass/Vol]3+NegativeVeterans Health AdministrationLeukocytes [#/volume] corrected for nucleated erythrocytes in Blood by Automated coun Ordered By: Art Bianchi on 66-98-7108AAX corrected for nucl RBC Auto (Bld) [#/Vol]14.0 10*3/uL4.5-13.5FMercy Health West HospitalLymphocytes Auto (Bld) [#/Vol]Ordered By: Art Bianchi on 57-17-1412Mzexgnerptj (Bld) [#/Vol]2.2 10*3/uL1.20-4.8[facility] AdministrationLymphocytes/100 WBC Auto (Bld) Ordered By: Art Bianchi on 51-48-6204Ahakmubdbnp/100 WBC (Bld)15.5 %.[facility] Auto (RBC) [Entitic mass]Ordered By: Art Bianchi on 19-58-9474WYI (RBC) [Entitic mass]28.6 pg25.0-35.0[facility] AdministrationMCHC Auto (RBC) [Mass/Vol]Ordered By: Art Bianchi on 78-02-9802XDKJ (RBC) [Mass/Vol]33.7 g/dL31.0-37.0[facility] AdministrationMCV Auto (RBC) [Entitic vol]Ordered By: Art Bianchi on 14-28-0562GQJ (RBC) [Entitic vol]85.0 fL 78-102[facility] AdministrationMonocyte distribution width [Entitic volume] in Blood by AutomatedOrdered By: Art Bianchi on 73-83-3200Rsgmwwcl distribution width Auto (Bld) [Entitic vol]14.69 %0.00-20.00[facility] AdministrationMonocytes Auto (Bld) [#/Vol]Ordered By: Art Bianchi on 10-31-2022 Monocytes (Bld) [#/Vol]1.3 10*3/uL0.1-1.00[facility] Monocytes/100 WBC Auto (Bld)Ordered By: Art Bianchi on 97-72-3708Wpomrlzlk/100 WBC (Bld)9.1 %.[facility] AdministrationNeutrophils Auto (Bld) [#/Vol] Ordered By: Art Bianchi on 51-34-7163Dxxhgbnpite (Bld) [#/Vol]10.4 10*3/uL 1.2-7.7FMercy Health West HospitalNeutrophils/100 WBC Auto (Bld)Ordered By: Art Bianchi on 88-41-2145Gqfmxgeimro/100 WBC (Bld)74.1 %.[facility] AdministrationNitrite Test strip Ql (U)Ordered By: Art Bianchi on 10-31-2022 Nitrite Ql (U)NegativeNegLima City HospitalNo Panel InformationOrdered By: Art Bianchi on 73-75-20319-8 [LPF]0-8[facility]> 60 mL/MinVeterans Health Administration29.0 U/G96-51XxxdnzpbcVeterans Health Administration102.97[facility] AdministrationNucleated erythrocytes [Presence] in Blood by Automated countOrdered By: Art Bianchi on 19-36-1256Vwirrbyhb RBC Auto Ql (Bld)0.1 /100{WBC}0-0.5FMercy Health West HospitalPlatelet mean volume Auto (Bld) [Entitic vol]Ordered By: Art Bianchi on 22-47-0828Nnptoijm mean volume (Bld) [Entitic vol]8.3 fL6.3-10.7 [facility] AdministrationPlatelets Auto (Bld) [#/Vol]Ordered By: Art Bianchi on 00-51-0438Jtjdshluc (Bld) [#/Vol]337 10*3/vW017-019JrdhxbxdoVeterans Health AdministrationProtein Auto test strip (U) [Mass/Vol]Ordered By: Art Bianchi on 05-46-4122Nnzruae (U) [Mass/Vol]100 mg/dLNegativeVeterans Health AdministrationProtein [Mass/volume] in Serum or PlasmaOrdered By: Art Bianchi on 67-23-0830Rxjvmzt [Mass/Vol]8.2 g/dL6.1-7.9[facility] AdministrationRBC Auto (Bld) [#/Vol]Ordered By: Art Bianchi on 58-39-9077ECJ (Bld) [#/Vol]5.29 10*6/uL4.10-5.10[facility] Centererum or plasma alanine aminotransferase measurement without P-5'-P (enzymatic activiOrdered By: Art Bianchi on 85-12-3198PNC No additional P-5'-P [Catalytic activity/Vol]25 U/L10-60 [facility] Centererum or plasma albumin/globulin mass ratio Ordered By: Art Bianchi on 05-02-8147Zvitfcq/Globulin [Mass ratio]1.6 {ratio} [facility] Centererum or plasma alkaline phosphatase measurement (enzymatic activity/volume)Ordered By: Art Bianchi on 55-81-9249HVQ [Catalytic activity/Vol]62 U/D92-17YnwuyedbzUC Medical Centererum or plasma anion gap determinationOrdered By: Art Bianchi on 26-65-1968Oyhyo gap [Moles/Vol]16.8 mmol/L6.0-15.0[facility] Centererum or plasma aspartate aminotransferase measurement (enzymatic activity/volume)Ordered By: Art Bianchi on 59-94-5201MRG [Catalytic activity/Vol]25 U/Q24-52FfwywoxxrUC Medical Centererum or plasma calcium measurement (mass/volume)Ordered By: Art Bianchi on 00-52-6722Hwqqagu [Mass/Vol]9.9 mg/dL8.2-10.2FOhioHealth Marion General Hospitalerum or plasma chloride measurement (moles/volume) Ordered By: Art Bianchi on 44-44-9503Gktbokmc [Moles/Vol]96 mmol/L95-114 [facility] Centererum or plasma creatinine measurement with calculation of estimated glomerular filtrOrdered By: Art Bianchi on 10-31-2022 Creatinine and Glomerular filtration rate.predicted panel (S/P/Bld)0.89 mg/dL 0.44-1.03[facility] Centererum or plasma glucose measurement (mass/volume)Ordered By: Art Bianchi on 27-82-6616Nskfnma [Mass/Vol]120 mg/dL 70-100[facility] Centererum or plasma potassium measurement (moles/volume)Ordered By: Art Bianchi on 42-36-9317Wzdrynplw [Moles/Vol]3.2 mmol/L3.5-5.1FOhioHealth Marion General Hospitalerum or plasma sodium measurement (moles/volume)Ordered By: Art Bianchi on 41-33-7657Tkrnfk [Moles/Vol]132 mmol/L 136-146[facility] Centererum or plasma total bilirubin measurement (mass/volume)Ordered By: Art Bianchi on 07-35-3626Zequzcvhp [Mass/Vol]1.7 mg/dL0.3-1.2FOhioHealth Marion General Hospitalerum or plasma total carbon dioxide measurement (moles/volume)Ordered By: Art Bianchi on 10-31-2022 CO2 [Moles/Vol]22.4 mmol/L22.0-30.0[facility] Centererum or plasma urea nitrogen measurement (mass/volume)Ordered By: Art Bianchi on 04-11-0361Aoqn nitrogen [Mass/Vol]28 mg/dL9-23[facility] Specific gravity Auto test strip (U) [Rel density]Ordered By: Art Bianchi on 98-38-4979Jitthnwd gravity (U) [Rel density]1.0301.001-1.030[facility] Centerquamous epithelial cells detection in urine sediment by light microscopyOrdered By: Art Bianchi on 21-05-5759Welwkubgod cells.squamous LM Ql (Urine sed)10-19 [HPF]0-2FMercy Health West HospitalUrine bacteria detection by automated methodOrdered By: Art Bianchi on 53-41-1384Qegckzrg Auto Ql (U)None seenNone SeenVeterans Health AdministrationUrine clarity by refractometry automatedOrdered By: Art Bianchi on 50-49-3932Hpoqpaj Refractometry automated (U)CloudyClearFMercy Health West HospitalUrine culture routineOrdered By: Art Bianchi 47-79-9371Ydcczbbj identified Cx Nom (U)2 DaysVeterans Health AdministrationUrine glucose measurement by automated test strip (mass/volume)Ordered By: Art Bianchi on 28-27-8226Yevmkvq Auto test strip (U) [Mass/Vol]Normal mg/dLNormalVeterans Health AdministrationUrine hemoglobin detection by automated test stripOrdered By: Art Bianchi on 34-48-7321Njzeceditx Auto test strip Ql (U)3+NegativeVeterans Health AdministrationUrine leukocyte esterase detection by automated test stripOrdered By: Art Bianchi on 40-75-7192Mcijqitav esterase Auto test strip Ql (U)2+Negative [facility] AdministrationUrobilinogen Auto test strip (U) [Mass/Vol] Ordered By: Art Bianchi on 67-62-6319Dlujihdupaco (U) [Mass/Vol]Normal mg/dL NormalVeterans Health AdministrationWBC Auto (Bld) [#/Vol]Ordered By: Art Bianchi on 17-29-4711ONH (Bld) [#/Vol]14.0 10*3/uL4.5-13.5FMercy Health West HospitalpH Auto test strip (U)Ordered By: Art Bianchi on 04-54-8712vO (U) 6.5 [pH]5.0-9.0[facility] AdministrationBasophils Auto (Bld) [#/Vol] Ordered By: Ravi Arguello on 64-81-5208Ifumrlqxs (Bld) [#/Vol]0.0 10*3/uL0.0-0.1 [facility] AdministrationBasophils/100 WBC Auto (Bld)Ordered By: Ravi Arguello on 71-53-0759Bcqechywi/100 WBC (Bld)0.3 %.[facility] AdministrationBody fluid albumin measurement (mass/volume)Ordered By: Ravi Arguello on 75-92-0682Gprgtoj (Body fld) [Mass/Vol]5.2 g/dL3.2-5.5FMercy Health West HospitalCreatinine and Glomerular filtration rate.predicted panel (S/P/Bld) Ordered By: Ravi Arguello on 03-35-4910Qwwctgceyb [Mass/Vol]0.85 mg/dL0.44-1.03 [facility] AdministrationDirect bilirubin measurementOrdered By: Ravi Arguello on 15-97-4862Vxisvzwdv.direct [Mass/Vol]0.1 mg/dL0.0-0.4FMercy Health West HospitalEosinophils Auto (Bld) [#/Vol]Ordered By: Ravi Arguello on 12-37-6763Najebxxvelu (Bld) [#/Vol]0.0 10*3/uL0.0-0.7FMercy Health West HospitalEosinophils/100 WBC Auto (Bld)Ordered By: Ravi Arguello on 10-29-2022 Eosinophils/100 WBC (Bld)0.1 %.[facility] AdministrationErythrocyte distribution width Auto (RBC) [Ratio]Ordered By: Ravi Arguello on 10-29-2022 Erythrocyte distribution width (RBC) [Ratio]14.4 %11.9-15.3FMercy Health West HospitalEstimated glomerular filtration rate (GFR) non- Ordered By: Ravi Arguello on 14-99-7944BZH/1.73 sq M.predicted among non-blacks MDRD (S/P/Bld) [Vol rate/Area]> 60 mL/MinVeterans Health Administration Globulin Calc (S) [Mass/Vol]Ordered By: Ravi Arguello on 60-45-9149Butpmmlq (S) [Mass/Vol]3.7 g/dLVeterans Health AdministrationHematocrit Auto (Bld) [Volume fraction]Ordered By: Ravi Arguello on 25-77-5478Ixczxmnukr (Bld) [Volume fraction]42.9 %36.0-46.0[facility] AdministrationHemoglobin [Mass/volume] in BloodOrdered By: Ravi Arguello on 42-66-0062Bonqsjnmrg (Bld) [Mass/Vol]14.3 g/dL12.0-16.0[facility] AdministrationLaboratory - Chemistry and Chemistry - challengeOrdered By: Ravi Arguello on 67-53-5626Ldrwwh [Catalytic activity/Vol]25.0 U/T55-18WapuhpszlVeterans Health AdministrationLeukocytes [#/volume] corrected for nucleated erythrocytes in Blood by Automated coun Ordered By: Ravi Arguello on 10-74-0806KSS corrected for nucl RBC Auto (Bld) [#/Vol]13.7 10*3/uL4.5-13.5FMercy Health West HospitalLymphocytes Auto (Bld) [#/Vol]Ordered By: Ravi Arguello on 42-30-6806Stjvalyuwbn (Bld) [#/Vol]1.7 10*3/uL1.20-4.8[facility] AdministrationLymphocytes/100 WBC Auto (Bld) Ordered By: Ravi Arguello on 33-68-3504Auufdufedvf/100 WBC (Bld)12.4 %.[facility] Auto (RBC) [Entitic mass]Ordered By: Ravi Arguello on 80-43-3314MKH (RBC) [Entitic mass]28.4 pg25.0-35.0[facility] AdministrationMCHC Auto (RBC) [Mass/Vol]Ordered By: Ravi Arguello on 49-52-5397OOXU (RBC) [Mass/Vol]33.3 g/dL31.0-37.0[facility] AdministrationMCV Auto (RBC) [Entitic vol]Ordered By: Ravi Arguello on 17-89-5144SME (RBC) [Entitic vol]85.1 rK63-650CvhpzyiltVeterans Health AdministrationMonocyte distribution width [Entitic volume] in Blood by AutomatedOrdered By: Ravi Arguello on 09-14-1876Zmrszifw distribution width Auto (Bld) [Entitic vol]16.57 %0.00-20.00[facility] AdministrationMonocytes Auto (Bld) [#/Vol]Ordered By: Ravi Arguello on 10-29-2022 Monocytes (Bld) [#/Vol]0.9 10*3/uL0.1-1.00[facility] Monocytes/100 WBC Auto (Bld)Ordered By: Ravi Arguello on 89-38-3655Uwaockqkq/100 WBC (Bld)6.8 %.[facility] AdministrationNeutrophils Auto (Bld) [#/Vol] Ordered By: Ravi Arguello on 02-88-2532Dbhkxkvswml (Bld) [#/Vol]11.0 10*3/uL 1.2-7.7FMercy Health West HospitalNeutrophils/100 WBC Auto (Bld)Ordered By: Ravi Arguello on 83-18-6088Isfpdhwsyot/100 WBC (Bld)80.4 %.[facility] AdministrationNo Panel InformationOrdered By: Ravi Arguello on 10-29-2022 Estimated GFR ()> 60 mL/MinVeterans Health Administration Comment on above:GFR estimated reference range: According to KDOQI guidelines, <60 ml/min/1.73m2 is sufficient todiagnose a patient with chronic kidney disease.Pharmacy Creatinine Clearance (Qrlp107.83[facility]> 60 mL/MinV[facility] Health Administration25.0 U/X17-03WjtirgtxfVeterans Health Administration105.83[facility] AdministrationNucleated erythrocytes [Presence] in Blood by Automated countOrdered By: Ravi Arguello on 71-14-4617Daqlqthck RBC Auto Ql (Bld)0.0 /100{WBC}0-0.5FMercy Health West HospitalPlatelet mean volume Auto (Bld) [Entitic vol]Ordered By: Ravi Arguello on 69-88-3573Dbslqbai mean volume (Bld) [Entitic vol]8.4 fL6.3-10.7 [facility] AdministrationPlatelets Auto (Bld) [#/Vol]Ordered By: Ravi Arguello on 73-80-8340Ivtqsncct (Bld) [#/Vol]355 10*3/xJ329-645YeebqehzvVeterans Health AdministrationProtein [Mass/volume] in Serum or PlasmaOrdered By: Ravi Arguello on 35-56-6562Bbcdvcw [Mass/Vol]8.9 g/dL6.1-7.9[facility] RBC Auto (Bld) [#/Vol]Ordered By: Ravi Arguello on 13-44-6785ESJ (Bld) [#/Vol] 5.04 10*6/uL4.10-5.10[facility] Centererum or plasma alanine aminotransferase measurement without P-5'-P (enzymatic activiOrdered By: Ravi Arguello on 94-59-4402ULY No additional P-5'-P [Catalytic activity/Vol]24 U/L10-60 [facility] Centererum or plasma albumin/globulin mass ratio Ordered By: Ravi Arguello on 87-75-7710Cznvwya/Globulin [Mass ratio]1.4 {ratio} [facility]ererum or plasma alkaline phosphatase measurement (enzymatic activity/volume)Ordered By: Ravi Arguello on 27-26-5870IKA [Catalytic activity/Vol]68 U/J20-14ZwqfnbmvaUC Medical Centererum or plasma anion gap determinationOrdered By: Ravi Arguello on 46-62-3166Yxlea gap [Moles/Vol]19.9 mmol/L6.0-15.0[facility] Centererum or plasma aspartate aminotransferase measurement (enzymatic activity/volume)Ordered By: aRvi Arguello on 92-74-4993VTF [Catalytic activity/Vol]20 U/S22-87BiktxtotiUC Medical Centererum or plasma calcium measurement (mass/volume)Ordered By: Ravi Arguello on 80-97-9302Rhllcpn [Mass/Vol]10.4 mg/dL8.2-10.2FOhioHealth Marion General Hospitalerum or plasma chloride measurement (moles/volume) Ordered By: Ravi Arguello on 02-59-7855Adqajewq [Moles/Vol]100 mmol/L95-114 [facility] Centererum or plasma creatinine measurement with calculation of estimated glomerular filtrOrdered By: Ravi Arguello on 10-29-2022 Creatinine and Glomerular filtration rate.predicted panel (S/P/Bld)0.85 mg/dL 0.44-1.03[facility] Centererum or plasma glucose measurement (mass/volume)Ordered By: Ravi Arguello on 21-45-3705Ffogksh [Mass/Vol]114 mg/dL 70-100[facility] AdministrationComment on above:ADA recommended reference rangeRandom Glucose Reference Range is dependent on time and content of last meal. Glucose of more than 200 mg/dL in a nonstressed, ambulatory subject supports the diagnosisof Diabetes Mellitus.Serum or plasma non- glucuronidated bilirubin measurement (mass/volume)Ordered By: Ravi Arguello on 67-58-4513Finkusccg.indirect [Mass/Vol]1.1 mg/dLUC Medical Centererum or plasma potassium measurement (moles/volume)Ordered By: Ravi Arguello on 56-27-1291Hnmysivyv [Moles/Vol]3.3 mmol/L3.5-5.1FOhioHealth Marion General Hospitalerum or plasma sodium measurement (moles/volume)Ordered By: Ravi Arguello on 80-77-8287Ijkugv [Moles/Vol]137 mmol/J027-437KzzzbdqneUC Medical Centererum or plasma total bilirubin measurement (mass/volume)Ordered By: Ravi Arguello on 44-15-7180Utlwxcupy [Mass/Vol]1.2 mg/dL0.3-1.2FOhioHealth Marion General Hospitalerum or plasma total carbon dioxide measurement (moles/volume)Ordered By: Ravi Arguello on 33-21-3316ID6 [Moles/Vol]20.4 mmol/L 22.0-30.0[facility] Centererum or plasma urea nitrogen measurement (mass/volume)Ordered By: Ravi Arguello on 67-86-3142Rzyv nitrogen [Mass/Vol]21 mg/dL9-23[facility] AdministrationWBC Auto (Bld) [#/Vol] Ordered By: Ravi Arguello on 44-77-7675KCC (Bld) [#/Vol]13.7 10*3/uL4.5-13.5 [facility] AdministrationBasophils Auto (Bld) [#/Vol]Ordered By: Modesta Chand on 33-01-4265Vqqfwfeiu (Bld) [#/Vol]0.0 10*3/uL0.0-0.1 [facility] AdministrationBasophils/100 WBC Auto (Bld)Ordered By: Modesta Chand on 65-48-4883Gyzkenyge/100 WBC (Bld)0.3 %.[facility] AdministrationBody fluid albumin measurement (mass/volume)Ordered By: Modesta Chand on 11-36-7227Dtdhtdf (Body fld) [Mass/Vol]4.7 g/dL3.2-5.5FMercy Health West HospitalCreatinine and Glomerular filtration rate.predicted panel (S/P/Bld)Ordered By: Modesta Chand on 58-42-2604Dpkvcyzmfa [Mass/Vol]0.90 mg/dL0.44-1.03[facility] AdministrationEosinophils Auto (Bld) [#/Vol] Ordered By: Modesta Chand on 20-59-5508Aoojotohwij (Bld) [#/Vol]0.3 10*3/uL0.0-0.7FMercy Health West HospitalEosinophils/100 WBC Auto (Bld) Ordered By: Modesta Chand on 81-65-8880Gouevpugvzd/100 WBC (Bld)2.2 %. [facility] AdministrationErythrocyte distribution width Auto (RBC) [Ratio]Ordered By: Modesta Chand on 72-47-6821Vtkgfsqrngt distribution width (RBC) [Ratio]14.0 %11.9-15.3FMercy Health West HospitalEstimated glomerular filtration rate (GFR) non- AmericanOrdered By: Modesta Chand on 62-97-9295IHQ/1.73 sq M.predicted among non-blacks MDRD (S/P/Bld) [Vol rate/Area]> 60 mL/MinVeterans Health AdministrationGlobulin Calc (S) [Mass/Vol]Ordered By: Modesta Chand on 77-33-5660Iohwicsi (S) [Mass/Vol] 2.5 g/dLVeterans Health AdministrationHematocrit Auto (Bld) [Volume fraction] Ordered By: Modesta Chand on 78-86-7554Wbbyxsffvx (Bld) [Volume fraction] 46.5 %36.0-46.0[facility] AdministrationHemoglobin [Mass/volume] in BloodOrdered By: Modesta Chand on 29-15-3749Oqgcxqjmta (Bld) [Mass/Vol] 15.6 g/dL12.0-16.0[facility] AdministrationLaboratory - Chemistry and Chemistry - challengeOrdered By: Modesta Chand on 31-89-6084Drvngy [Catalytic activity/Vol]27.0 U/F10-95AqofgjppdVeterans Health AdministrationLaboratory - Hematology and Cell countsOrdered By: Modesta Chand on 08-27-2022 Nucleated RBC/100 WBC (Bld) [Ratio]0.1 %0-0.5FMercy Health West Hospital Leukocytes [#/volume] in Blood by Automated countOrdered By: Modesta Chand on 27-46-5790GGH (Bld) [#/Vol]13.4 10*3/uL4.5-13.5FMercy Health West HospitalLymphocytes Auto (Bld) [#/Vol]Ordered By: Modesta Chand on 24-43-1011Ubsebqasbhv (Bld) [#/Vol]3.1 10*3/uL1.20-4.8[facility] AdministrationLymphocytes/100 WBC Auto (Bld)Ordered By: Modesta Chand on 58-07-8731Yfysjqqwjlj/100 WBC (Bld)22.9 %.[facility] Auto (RBC) [Entitic mass]Ordered By: Modesta Chand on 57-84-8834OTT (RBC) [Entitic mass]28.4 pg25.0-35.0[facility] AdministrationMCHC Auto (RBC) [Mass/Vol]Ordered By: Modesta Chand on 31-07-0277NKMB (RBC) [Mass/Vol]33.5 g/dL31.0-37.0[facility] AdministrationMCV Auto (RBC) [Entitic vol] Ordered By: Modesta Chand on 43-57-1321SUQ (RBC) [Entitic vol]84.8 fL 78-102[facility] AdministrationMonocytes Auto (Bld) [#/Vol]Ordered By: Modesta Chand on 02-72-2315Sepokacpf (Bld) [#/Vol]1.2 10*3/uL0.1-1.00 [facility] AdministrationMonocytes/100 WBC Auto (Bld)Ordered By: Modesta Chand on 10-91-3547Myuilkytw/100 WBC (Bld)9.1 %.[facility] AdministrationNeutrophils Auto (Bld) [#/Vol]Ordered By: Modesta Chand on 48-54-8826Rvhtziyoeld (Bld) [#/Vol]8.8 10*3/uL1.2-7.7FMercy Health West HospitalNeutrophils/100 WBC Auto (Bld)Ordered By: Modesta Chand on 24-98-9874Vywcspbnvkh/100 WBC (Bld)65.5 %.[facility] AdministrationNo Panel InformationOrdered By: Modesta Chand on 85-86-6253Lvncdxrzk GFR ()> 60 mL/MinVeterans Health AdministrationComment on above: GFR estimated reference range: According to KDOQI guidelines, <60 ml/min/1.73m2 is sufficient todiagnose a patient with chronic kidney disease.Pharmacy Creatinine Clearance (ChemN/[facility]13.4 10*3/uL 4.5-13.5FMercy Health West Hospital0.1 %0-0.5FMercy Health West Hospital> 60 mL/MinVeterans Health Administration27.0 U/V72-53ZqtyqtscpVeterans Health AdministrationN/[facility] HospitalPlatelet mean volume Auto (Bld) [Entitic vol]Ordered By: Modesta Chand on 35-95-6101Tldqpwjr mean volume (Bld) [Entitic vol]8.9 fL6.3-10.7FMercy Health West Hospital Platelets Auto (Bld) [#/Vol]Ordered By: Modesta Chand on 08-27-2022 Platelets (Bld) [#/Vol]373 10*3/bE547-498GrurptsugVeterans Health Administration Protein [Mass/volume] in Serum or PlasmaOrdered By: Modesta Chand on 34-15-1170Qslicwh [Mass/Vol]7.2 g/dL6.1-7.9[facility] AdministrationRBC Auto (Bld) [#/Vol]Ordered By: Modesta Chand on 92-61-9167ILR (Bld) [#/Vol] 5.49 10*6/uL4.10-5.10[facility] Centererum or plasma alanine aminotransferase measurement without P-5'-P (enzymatic activiOrdered By: Modesta Chand on 20-30-0713SQR No additional P-5'-P [Catalytic activity/Vol]20 U/J91-98IvzdzcfqiUC Medical Centererum or plasma albumin/globulin mass ratioOrdered By: Modesta Chand on 08-27-2022 Albumin/Globulin [Mass ratio]1.9 {ratio}[facility] Centererum or plasma alkaline phosphatase measurement (enzymatic activity/volume)Ordered By: Modesta Chand on 63-75-9289OVK [Catalytic activity/Vol]63 U/L32-92 [facility] Centererum or plasma amylase measurement (enzymatic activity/volume)Ordered By: Modesta Chand on 96-26-6121Pdmfctq [Catalytic activity/Vol]25 U/P97-078TrvzqllxpUC Medical Centererum or plasma anion gap determinationOrdered By: Modesta Chand on 76-60-1791Itmqj gap [Moles/Vol]22.5 mmol/L6.0-15.0[facility] Centererum or plasma aspartate aminotransferase measurement (enzymatic activity/volume)Ordered By: Modesta Chand on 10-20-1021EZQ [Catalytic activity/Vol]18 U/L10-42 [facility]ererum or plasma calcium measurement (mass/volume)Ordered By: Modesta Chand on 76-26-5975Jodddce [Mass/Vol]10.1 mg/dL8.2-10.2FOhioHealth Marion General Hospitalerum or plasma chloride measurement (moles/volume)Ordered By: Modesta Chand on 11-71-5097Wyzueelz [Moles/Vol]89 mmol/M04-935NxvwcojmbUC Medical Centererum or plasma creatinine measurement with calculation of estimated glomerular filtrOrdered By: Modesta Chand on 36-51-7801Trkmnpwdqa and Glomerular filtration rate.predicted panel (S/P/Bld)0.90 mg/dL0.44-1.03[facility] Centererum or plasma glucose measurement (mass/volume)Ordered By: Modesta Chand on 91-76-1546Nhrtciv [Mass/Vol]76 mg/cK78-864ZvytfdxgcVeterans Health AdministrationComment on above:ADA recommended reference rangeRandom Glucose Reference Range is dependent on time and content of last meal. Glucose of more than 200 mg/dL in a nonstressed, ambulatory subject supports the diagnosisof Diabetes Mellitus.Serum or plasma potassium measurement (moles/volume)Ordered By: Modesta Chand on 23-37-2464Fumbgygaf [Moles/Vol]3.7 mmol/L3.5-5.1 [facility] Centererum or plasma sodium measurement (moles/volume)Ordered By: Modesta hCand on 19-11-1574Fqfcsj [Moles/Vol]131 mmol/U788-704HvoczkgcfUC Medical Centererum or plasma total bilirubin measurement (mass/volume)Ordered By: Modesta Chand on 08-19-9838Yjidzfnkh [Mass/Vol]1.6 mg/dL0.3-1.2FMercy Health West HospitalComment on above: Samples from patients who have taken Naproxen have shown spurious elevation in Total Bilirubin levels. A metabolite of Naproxen, O-desmethylnaproxen, has been shown to interfere with the Solomon method for measuring Total Bilirubin.Serum or plasma total carbon dioxide measurement (moles/volume)Ordered By: Modesta Chand on 29-27-8875XJ8 [Moles/Vol]23.2 mmol/L22.0-30.0 [facility] Centererum or plasma urea nitrogen measurement (mass/volume)Ordered By: Modesta Chand on 21-31-0443Xwsp nitrogen [Mass/Vol]15 mg/dL9-23[facility] AdministrationBasophils Auto (Bld) [#/Vol]Ordered By: Gregorio Carey on 74-56-6987Gafuyyduz (Bld) [#/Vol]0.0 10*3/uL0.0-0.1FMercy Health West HospitalBasophils/100 WBC Auto (Bld) Ordered By: Gregorio Carey on 34-76-2458Jobmwlzxw/100 WBC (Bld)0.3 %. [facility] AdministrationBlood hemoglobin measurement (mass/volume) Ordered By: Gregorio Carey on 00-94-2360Urousoficq (Bld) [Mass/Vol]13.1 g/dL12.0-16.0[facility] AdministrationBlood leukocytes automated count (number/volume)Ordered By: Gregorio Carey on 45-06-9215MDY (Bld) [#/Vol] 9.7 10*3/uL4.5-13.5FMercy Health West HospitalCreatinine and Glomerular filtration rate.predicted panel (S/P/Bld)Ordered By: Gregorio Carey on 52-62-3723Ljukenstdk [Mass/Vol]0.75 mg/dL0.44-1.03[facility] AdministrationEosinophils Auto (Bld) [#/Vol]Ordered By: Gregorio Carey on 11-77-9787Mgzwejahbck (Bld) [#/Vol]0.1 10*3/uL0.0-0.7FMercy Health West HospitalEosinophils/100 WBC Auto (Bld)Ordered By: Gregorio Carey on [id number]/100 WBC (Bld)1.0 %.[facility] Erythrocyte distribution width Auto (RBC) [Ratio]Ordered By: Gregorio Carey on 84-26-2640Wwepojmfezh distribution width (RBC) [Ratio]14.1 % 11.9-15.3FMercy Health West HospitalEstimated glomerular filtration rate (GFR) non- AmericanOrdered By: Gregorio Carey on 34-58-2547DTI/1.73 sq M.predicted among non-blacks MDRD (S/P/Bld) [Vol rate/Area]> 60 mL/Min [facility] AdministrationHematocrit Auto (Bld) [Volume fraction]Ordered By: Gregorio Carey on 06-74-8101Anbawlhczq (Bld) [Volume fraction]39.6 % 36.0-46.0[facility] AdministrationLaboratory - Hematology and Cell countsOrdered By: Gregorio Carey on [id number] RBC/100 WBC (Bld) [Ratio]0.0 %0-0.5FMercy Health West HospitalLymphocytes Auto (Bld) [#/Vol] Ordered By: Gregorio Carey on 53-22-4382Diwmbuxdrph (Bld) [#/Vol]2.0 10*3/uL1.20-4.8[facility] Health AdministrationLymphocytes/100 WBC Auto (Bld) Ordered By: Gregorio Carey on 80-81-3685Nqqmsewnlca/100 WBC (Bld)20.5 %. [facility] CenterH Auto (RBC) [Entitic mass]Ordered By: Gregorio Carey on 14-71-5903PIJ (RBC) [Entitic mass]28.0 pg25.0-35.0 [facility] AdministrationMCHC Auto (RBC) [Mass/Vol]Ordered By: Gregorio Carey on 37-62-6598DNKK (RBC) [Mass/Vol]33.2 g/dL31.0-37.0 [facility] AdministrationMCV Auto (RBC) [Entitic vol]Ordered By: Gregorio Carey on 64-61-8509ZWW (RBC) [Entitic vol]84.5 gQ28-760FxydkzryqVeterans Health AdministrationMonocytes Auto (Bld) [#/Vol]Ordered By: Gregorio Carey on 21-07-1126Lplaiyozf (Bld) [#/Vol]0.8 10*3/uL0.1-1.00[facility] AdministrationMonocytes/100 WBC Auto (Bld)Ordered By: Gregorio Carey on 26-35-7144Leaeacnmq/100 WBC (Bld)8.0 %.[facility] AdministrationNeutrophils Auto (Bld) [#/Vol]Ordered By: Gregorio Carey on 57-17-1146Iyqbqbhsqmj (Bld) [#/Vol]6.8 10*3/uL1.2-7.7FMercy Health West HospitalNeutrophils/100 WBC Auto (Bld)Ordered By: Gregorio Carey on 33-52-5273Rhzigzjfeop/100 WBC (Bld)70.2 %.[facility] AdministrationNo Panel InformationOrdered By: Gregorio Carey on 77-41-8312Abvkpfgco GFR ()> 60 mL/MinVeterans Health AdministrationComment on above: GFR estimated reference range: According to KDOQI guidelines, <60 ml/min/1.73m2 is sufficient todiagnose a patient with chronic kidney disease.Pharmacy Creatinine Clearance (Psxq699.26[facility]9.7 10*3/uL 4.5-13.5FMercy Health West Hospital0.0 %0-0.5FMercy Health West Hospital> 60 mL/MinVeterans Health Administration117.26[facility] AdministrationPlatelet mean volume Auto (Bld) [Entitic vol]Ordered By: Gregorio Carey on 41-42-7025Wnqwrevd mean volume (Bld) [Entitic vol]8.6 fL 6.3-10.7FMercy Health West HospitalPlatelets Auto (Bld) [#/Vol]Ordered By: Gregorio Carey on 49-75-1715Mgsulcnpx (Bld) [#/Vol]246 10*3/bO818-883 [facility] AdministrationRBC Auto (Bld) [#/Vol]Ordered By: Gregorio Carey on 48-20-8606FGL (Bld) [#/Vol]4.69 10*6/uL4.10-5.10[facility] Centererum nuclear antibody titerOrdered By: Gregorio Carey on 61-02-6795Bykkljf Ab (S) [Titer]Negative.[facility] Comment on above:Negative <1:80 Borderline 1:80 Positive >1:80ICAP nomenclature: AC-0For more information about Hep-2 cell patterns useANApatterns.org, the official website for theInternational Consensus on Antinuclear Antibody (EDMOND)Patterns (ICAP).Performed at: - [place] [id number] Director: James Nelson PhD, Phone: [phone] or plasma anion gap determinationOrdered By: Gergorio Carey on 30-08-0610Awbhr gap [Moles/Vol]17.0 mmol/L6.0-15.0[facility] Centererum or plasma beta choriogonadotropin measurement (units/volume)Ordered By: Gregorio Carey on 09-16-9918HHT.beta subunit Qnm[IU]/mLVeterans Health AdministrationComment on above:Approximate Approximate hCG Gestational Age Range (mIU/ml) (weeks) 0.2-1 5-50 1-2 50-500 2-3 100-5,000 3-4 500-10,000 4-5 1,000-50,000 5-6 10,000-100,000 6-8 15,000-200,000 8-12 10,000-100,000 Approximate Approximate hCG Gestational Age Range (mIU/ml) (weeks)0.2-1 5-50 1-2 50-500 2-3 100-5,000 3-4 500-10,000 4-5 1,000-50,000 5-6 10,000-100,000 6-8 15,000-200,000 8-12 10,000-100,000Serum or plasma calcium measurement (mass/volume)Ordered By: Gregorio Carey on 35-57-4257Loqjchu [Mass/Vol]9.4 mg/dL8.2-10.2FOhioHealth Marion General Hospitalerum or plasma chloride measurement (moles/volume)Ordered By: Gregorio Carey on 78-55-4190Dthlouhm [Moles/Vol]99 mmol/X75-613UrkttchanUC Medical Centererum or plasma creatinine measurement with calculation of estimated glomerular filtrOrdered By: Gregorio Carey on 16-33-5405Gscghewlzj and Glomerular filtration rate.predicted panel (S/P/Bld)0.75 mg/dL0.44-1.03[facility] Centererum or plasma glucose measurement (mass/volume)Ordered By: Gregorio Carey on 66-79-2723Fgyrull [Mass/Vol]90 mg/qS60-410OihdqgjdnVeterans Health AdministrationComment on above:ADA recommended reference range Random Glucose [...] potassium measurement (moles/volume)Ordered By: Gregorio Carey on 45-26-0563Zuyxzszfn [Moles/Vol]3.8 mmol/L3.5-5.1 [facility] Centererum or plasma sodium measurement (moles/volume)Ordered By: Gregorio Carey on 00-57-2656Ncgqwn [Moles/Vol] 134 mmol/G856-853QkujbarwfUC Medical Centererum or plasma total carbon dioxide measurement (moles/volume)Ordered By: Gregorio Carey on 08-22-2022 CO2 [Moles/Vol]21.8 mmol/L22.0-30.0[facility] Centererum or plasma urea nitrogen measurement (mass/volume)Ordered By: Gregorio Carey on 69-57-7006Thba nitrogen [Mass/Vol]7 mg/dL9-[facility] AdministrationUrine culture routineOrdered By: Gregorio Carey on 08-22-2022 Bacteria identified Cx Nom (U)2 [facility]Urine culture routineOrdered By: Gilson Castro on 21-23-2424Zmcpnxrz identified Cx Nom (U)2 [facility] HospitalUrine culture routineOrdered By: Colten Fry on 46-43-1305Efevfohv identified Cx Nom (U)2 [facility] HospitalAmphetamine Screen Ql (U)Ordered By: Gilson Castro on 21-30-5093Ptviaaveheoq Ql (U)NegativeNegativeVeterans Health Administration Automated erythrocytes count in urine sediment (number/area)Ordered By: Gilson Castro on 65-18-8184IGG Auto (Urine sed) [#/Area]None seen [HPF]0-4FMercy Health West HospitalAutomated leukocytes count in urine sediment (number/area)Ordered By: Gilson Castro on 00-53-2086UXQ Auto (Urine sed) [#/Area]1-2 [HPF]0-4FMercy Health West HospitalBarbiturates [Presence] in UrineOrdered By: Gilson Castro on 17-22-1401Xpkpprsfaiuj Ql (U)PositiveNegative [facility] AdministrationBasophils Auto (Bld) [#/Vol]Ordered By: Gilson Castro on 39-40-7470Elvopelyd (Bld) [#/Vol]0.0 10*3/uL0.0-0.1FMercy Health West HospitalBasophils/100 WBC Auto (Bld)Ordered By: Gilson Castro on 75-12-5872Crhjemhmj/100 WBC (Bld)0.4 %.[facility] Benzodiazepines [Presence] in UrineOrdered By: Gilson Castro on 08-20-2022 Benzodiazepines Ql (U)NegativeNegLima City HospitalBilirubin Test strip Ql (U)Ordered By: Gilson Castro on 86-20-2797Csroqlaqj Ql (U) NegativeNegLima City HospitalBlood anisocytosis detection Ordered By: Gilson Castro on 99-13-6193Wpncimmezucs Ql (Bld)SlightVeterans Health AdministrationBlood hemoglobin measurement (mass/volume)Ordered By: Gilson Castro on 88-44-1786Jnlcdorekz (Bld) [Mass/Vol]12.1 g/dL12.0-16.0 [facility] AdministrationBlood leukocytes automated count (number/volume)Ordered By: Gilson Castro on 58-89-5543IAY (Bld) [#/Vol]10.9 10*3/uL4.5-13.5FMercy Health West HospitalCOVID-19 Positive/Negative Ordered By: Ravi Arguello on 49-33-4676LNYX-CoV-2 (COVID-19) N gene JANAK+probe Ql (Resp)NegativeNegLima City HospitalComment on above:Testing for SARS-CoV-2 by RT-PCR This test was developed and its performance characteristics determined by [employer] ([employer]) and validated at the [facility]. This test has not been FDA cleared [...] and its performance characteristics determined by [employer] ([employer]) and validated at the [facility]. This test has not been FDA cleared [...] on 08-20-2022 SARS-CoV+SARS-CoV-2 (COVID-19) Ag IA.rapid Ql (Resp)NegativeNegLima City HospitalComment on above:This is a duplicate Adia SARS Antigen (JOSE A) result to be used for statistical tracking purpose only.Cannabinoids [Presence] in Urine by Screen methodOrdered By: Gilson Castro on 08-20-2022 Cannabinoids Screen Ql (U)PositiveNegLima City Hospital Comment on above:These are unconfirmed results [...] ng/mLColor Auto (U)Ordered By: Gilson Castro on 95-55-6909Quomg (U)YellowYellowVeterans Health AdministrationCreatinine and Glomerular filtration rate.predicted panel (S/P/Bld)Ordered By: Gilson Castro on 21-07-8835Cqrrdamrtf [Mass/Vol]0.65 mg/dL0.44-1.03 [facility] AdministrationEosinophils Auto (Bld) [#/Vol]Ordered By: Gilson Castro on 90-99-3728Rbcdtakrvgt (Bld) [#/Vol]0.0 10*3/uL0.0-0.7FMercy Health West HospitalEosinophils/100 WBC Auto (Bld)Ordered By: Gilson Castro on 66-50-1585Crpurecvcew/100 WBC (Bld)0.3 %.[facility] Erythrocyte distribution width Auto (RBC) [Ratio]Ordered By: Gilson Castro on 98-96-2589Wsmaxklkynv distribution width (RBC) [Ratio]13.9 %11.9-15.3FMercy Health West HospitalEstimated glomerular filtration rate (GFR) non- AmericanOrdered By: Gilson Castro on 35-69-5023COG/1.73 sq M.predicted among non-blacks MDRD (S/P/Bld) [Vol rate/Area]> 60 mL/MinVeterans Health AdministrationHematocrit Auto (Bld) [Volume fraction]Ordered By: Gilson Castro on 88-07-5010Xcvlqunroa (Bld) [Volume fraction]36.8 %36.0-46.0[facility] AdministrationKetones Auto test strip (U) [Mass/Vol]Ordered By: Gilson Castro on 47-26-7510Psxldlr (U) [Mass/Vol]2+NegativeVeterans Health Administration Laboratory - Chemistry and Chemistry - challengeOrdered By: Gilson Castro on 15-59-3172Qhrqfgxrh [Mass/Vol]1.9 mg/dL1.6-2.6FMercy Health West Hospital Laboratory - Drug toxicologyOrdered By: Gilson Castro on 27-36-3460Algieyq Ql (U)NegativeNegativeVeterans Health AdministrationLaboratory - Hematology and Cell countsOrdered By: Gilson Castro on 00-97-1936Evkrhlzdc RBC/100 WBC (Bld) [Ratio]0.0 %0-0.5FMercy Health West HospitalLaboratory - UrinalysisOrdered By: Gilson Castro on 43-39-2431Sjmgegt casts LM Ql (Urine sed)None seen [LPF] 0-8[facility] AdministrationLymphocytes Auto (Bld) [#/Vol]Ordered By: Gilson Castro on 40-59-4288Ywvllqtlkty (Bld) [#/Vol]1.3 10*3/uL1.20-4.8[facility] AdministrationLymphocytes/100 WBC Auto (Bld)Ordered By: Gilson Castro on 29-25-4281Oncuecwkaaq/100 WBC (Bld)11.5 %.[facility] MCH Auto (RBC) [Entitic mass]Ordered By: Gilson Castro on 82-78-5763RAX (RBC) [Entitic mass]28.1 pg25.0-35.0[facility] AdministrationMCHC Auto (RBC) [Mass/Vol]Ordered By: Gilson Castro on 65-47-2328CZXG (RBC) [Mass/Vol]32.9 g/dL 31.0-37.0[facility] AdministrationMCV Auto (RBC) [Entitic vol]Ordered By: Gilson Castro on 15-60-0511FFW (RBC) [Entitic vol]85.5 vK88-740DbeqjcfbvVeterans Health AdministrationMonocytes Auto (Bld) [#/Vol]Ordered By: Gilson Castro on 60-40-3513Sytmlumtf (Bld) [#/Vol]0.4 10*3/uL0.1-1.00[facility] AdministrationMonocytes/100 WBC Auto (Bld)Ordered By: Gilson Castro on 08-20-2022 Monocytes/100 WBC (Bld)3.7 %.[facility] AdministrationNeutrophils Auto (Bld) [#/Vol]Ordered By: Gilson Castro on 36-12-6740Dxfhrjmuvtu (Bld) [#/Vol]9.2 10*3/uL1.2-7.7FMercy Health West HospitalNeutrophils/100 WBC Auto (Bld) Ordered By: Gilson Castro on 82-58-4920Csrnhgltwwk/100 WBC (Bld)84.1 %.[facility] AdministrationNitrite Test strip Ql (U)Ordered By: Gilson Castro on 68-60-2759Ellacnp Ql (U)NegativeNegativeVeterans Health AdministrationNo Panel InformationOrdered By: Gilson Castro on 47-38-7150Exvd seen [LPF]0-8 [facility] AdministrationNegativeNegLima City HospitalEstimated GFR ()> 60 mL/MinVeterans Health AdministrationComment on above:GFR estimated reference range: According to KDOQI guidelines, <60 ml/min/1.73m2 is sufficient todiagnose a patient with chronic kidney disease.Pharmacy Creatinine Clearance (Wlpj602.96[facility] AdministrationPlatelet EstimateNormalNormCenterville Platelet Morphology CommentNormalNormCentervilleNormal NormalVeterans Health Administration1.9 mg/dL1.6-2.6FMercy Health West HospitalNo Panel InformationOrdered By: Ravi Arguello on 00-68-1914SPIL Antigen (LFIA)[facility] AdministrationPhencyclidine Screen Ql (U) Ordered By: Gilson Castro on 82-06-5193Fcowlxvdbyqrh Ql (U)NegativeNegative [facility] AdministrationPlatelet mean volume Auto (Bld) [Entitic vol] Ordered By: Gilson Castro on 25-97-9635Uereadxt mean volume (Bld) [Entitic vol] 8.6 fL6.3-10.7FMercy Health West HospitalPlatelets Auto (Bld) [#/Vol] Ordered By: Gilson Castro on 69-22-5204Iesrunjzu (Bld) [#/Vol]145 10*3/eH912-546 [facility] AdministrationComment on above:Delta: 314 on 08/19/22 Protein Auto test strip (U) [Mass/Vol]Ordered By: Gilson Castro on 08-20-2022 Protein (U) [Mass/Vol]NegativeNegativeVeterans Health AdministrationRB Auto (Bld) [#/Vol]Ordered By: Gilson Castro on 76-28-2648KPA (Bld) [#/Vol]4.31 10*6/uL4.10-5.10[facility] morphologyOrdered By: Gilson Castro on 82-52-0145UGT morphology finding Nom (Bld)N/AFOhioHealth Marion General Hospitalerum or plasma anion gap determinationOrdered By: Gilson Castro on 47-74-4027Llbkd gap [Moles/Vol]15.2 mmol/L6.0-15.0[facility] Centererum or plasma calcium measurement (mass/volume)Ordered By: Gilson Castro on 37-75-2149Cxtplzh [Mass/Vol]8.6 mg/dL8.2-10.2FOhioHealth Marion General Hospitalerum or plasma chloride measurement (moles/volume)Ordered By: Gilson Castro on 80-39-6516Mmffpwbk [Moles/Vol]101 mmol/R23-552DqcvqkryeUC Medical Centererum or plasma glucose measurement (mass/volume)Ordered By: Gilson Castro on 16-13-1104Nidbzlb [Mass/Vol]96 mg/aJ23-379WbnfldlskVeterans Health AdministrationComment on above:ADA recommended reference range Random Glucose Reference Range is dependent on time and content of last meal. Glucose of more than 200 mg/dL in a nonstressed, ambulatory subject supports the diagnosis of Diabetes Mellitus.Serum or plasma potassium measurement (moles/volume)Ordered By: Gilson Castro on 84-88-0326Ntcozuvfl [Moles/Vol]3.1 mmol/L3.5-5.1FOhioHealth Marion General Hospitalerum or plasma sodium measurement (moles/volume)Ordered By: Gilson Castro on 50-42-7428Ityycz [Moles/Vol]135 mmol/G940-681ShyqbilwaUC Medical Centererum or plasma total carbon dioxide measurement (moles/volume)Ordered By: Gilson Castro on 65-64-0036IG5 [Moles/Vol]21.9 mmol/L22.0-30.0[facility] Centererum or plasma urea nitrogen measurement (mass/volume)Ordered By: Gilson Castro on 08-20-2022 Urea nitrogen [Mass/Vol]11 mg/dL08-20UC Medical Centerpecific gravity Auto test strip (U) [Rel density]Ordered By: Gilson Castro on 08-20-2022 Specific gravity (U) [Rel density]1.0081.001-1.030[facility] Medical Centerquamous epithelial cells detection in urine sediment by light microscopy Ordered By: Gilson Castro on 53-21-2927Fznrtloelj cells.squamous LM Ql (Urine sed)1-2 [HPF]0-2FMercy Health West HospitalUrine bacteria detection by automated methodOrdered By: Gilson Castro on 43-20-0445Zwkycdep Auto Ql (U)None seenNone SeenVeterans Health AdministrationUrine clarity by refractometry automatedOrdered By: Gilson Castro on 75-44-1455Nbpjltt Refractometry automated (U)ClearCleUniversity Hospitals Portage Medical CenterUrine cocaine detectionOrdered By: Gilson Castro on 26-87-2407Hzzfyzp Ql (U)NegativeNegLima City HospitalUrine glucose measurement by automated test strip (mass/volume) Ordered By: Gilson Castro on 41-24-2720Dweknnx Auto test strip (U) [Mass/Vol] Normal mg/dLNoAvita Health System Ontario HospitalUrine hemoglobin detection by automated test stripOrdered By: Gilson Castro on 56-14-3621Bzuvginmvy Auto test strip Ql (U)NegativeNegLima City HospitalUrine leukocyte esterase detection by automated test stripOrdered By: Gilson Castro on 11-94-7973Lteteqcso esterase Auto test strip Ql (U)1+NegativeVeterans Health AdministrationUrobilinogen Auto test strip (U) [Mass/Vol]Ordered By: Gilson Castro on 02-84-1626Npgkabooolfj (U) [Mass/Vol]Normal mg/dLNormCentervillepH Auto test strip (U)Ordered By: Gilson Castro on 38-89-8714xA (U)7.0 [pH]5.0-9.0[facility] AdministrationAutomated erythrocytes count in urine sediment (number/area)Ordered By: Gilson Castro on 49-80-8654AAX Auto (Urine sed) [#/Area]3-4 [HPF]0-4FMercy Health West HospitalAutomated erythrocytes count in urine sediment (number/area)Ordered By: Colten Fry on 56-75-4360CRO Auto (Urine sed) [#/Area]None seen [HPF]0-4 [facility] AdministrationAutomated leukocytes count in urine sediment (number/area)Ordered By: Gilson Castro on 19-21-3250DVS Auto (Urine sed) [#/Area]20-49 [HPF]0-4FMercy Health West HospitalAutomated leukocytes count in urine sediment (number/area)Ordered By: Colten Fry on 35-25-2967GWC Auto (Urine sed) [#/Area]5-9 [HPF]0-4FMercy Health West HospitalAutomated urine hyaline casts count (number/volume)Ordered By: Gilson Castro on 08-19-2022 Hyaline casts Auto (U) [#/Vol]None seen [LPF]0-1FMercy Health West HospitalBasophils Auto (Bld) [#/Vol]Ordered By: Gilson Castro on 08-19-2022 Basophils (Bld) [#/Vol]0.0 10*3/uL0.0-0.1FMercy Health West Hospital Basophils Auto (Bld) [#/Vol]Ordered By: Colten Fry on 35-80-1955Yjsqiysqc (Bld) [#/Vol]0.0 10*3/uL0.0-0.1FMercy Health West HospitalBasophils/100 WBC Auto (Bld)Ordered By: Gilson Castro on 44-28-3405Benrlhnwh/100 WBC (Bld)0.2 %.[facility] AdministrationBasophils/100 WBC Auto (Bld)Ordered By: Colten Fry on 88-92-4768Czlzxkkeo/100 WBC (Bld)0.4 %.[facility] AdministrationBilirubin Test strip Ql (U)Ordered By: Gilson Castro on 08-19-2022 Bilirubin Ql (U)NegativeNegativeVeterans Health AdministrationBilirubin Test strip Ql (U)Ordered By: Colten Fry on 74-58-9979Yccvmkaxj Ql (U)Negative NegativeVeterans Health AdministrationBlood hemoglobin measurement (mass/volume)Ordered By: Gilson Castro on 23-51-6998Sbemxnwjbw (Bld) [Mass/Vol] 13.2 g/dL12.0-16.0[facility] AdministrationBlood hemoglobin measurement (mass/volume)Ordered By: Colten Fry on 64-15-1121Uxubhlalux (Bld) [Mass/Vol] 12.8 g/dL12.0-16.0[facility] AdministrationBlood leukocytes automated count (number/volume)Ordered By: Gilson Castro on 93-79-7245RHH (Bld) [#/Vol] 15.5 10*3/uL4.5-13.5FMercy Health West HospitalBlood leukocytes automated count (number/volume)Ordered By: Colten Fry on 30-97-0186JTW (Bld) [#/Vol] 13.5 10*3/uL4.5-13.5FMercy Health West HospitalBody fluid albumin measurement (mass/volume)Ordered By: Gilson Castro on 97-70-3658Kpuieyl (Body fld) [Mass/Vol]4.0 g/dL3.2-5.5FMercy Health West HospitalBody fluid albumin measurement (mass/volume)Ordered By: Colten Fry on 16-32-9657Ocyeifa (Body fld) [Mass/Vol]4.5 g/dL3.2-5.5FMercy Health West HospitalCOVID-19 SOFIAOrdered By: Gilson Castro on 96-42-0081ASJF-CoV+SARS-CoV-2 (COVID-19) Ag IA.rapid Ql (Resp)NegativeNegativeVeterans Health AdministrationComment on above:This is a duplicate Adia SARS Antigen (JOSE A) result to be used for statistical tracking purpose only.Casts typing in urine sediment by light microscopyOrdered By: Gilson Castro on 89-39-4940Xwgmu LM Nom (Urine sed)None seen [LPF]None SeenVeterans Health AdministrationCasts typing in urine sediment by light microscopyOrdered By: Colten Fry on 73-17-8825Tmaqn LM Nom (Urine sed)N/AFMercy Health West HospitalColor Auto (U)Ordered By: Gilson Castro on 38-50-9240Epcsz (U)YellowYellowVeterans Health Administration Color Auto (U)Ordered By: Colten Fry on 04-46-6643Hoizv (U)YellowYellow [facility] AdministrationCreatinine and Glomerular filtration rate.predicted panel (S/P/Bld)Ordered By: Gilson Castro on 19-88-7104Sucakuweky [Mass/Vol]0.73 mg/dL0.44-1.03[facility] AdministrationCreatinine and Glomerular filtration rate.predicted panel (S/P/Bld)Ordered By: Colten Fry on 73-10-2178Dhucqplxce [Mass/Vol]0.82 mg/dL0.44-1.03[facility] AdministrationEosinophils Auto (Bld) [#/Vol]Ordered By: Gilson Castro on 08-19-2022 Eosinophils (Bld) [#/Vol]0.0 10*3/uL0.0-0.7FMercy Health West Hospital Eosinophils Auto (Bld) [#/Vol]Ordered By: Colten Fry on 34-80-2329Ghxpltvkggq (Bld) [#/Vol]0.0 10*3/uL0.0-0.7FMercy Health West HospitalEosinophils/100 WBC Auto (Bld)Ordered By: Gilson Castro on 70-53-6857Vbxrsfxcupb/100 WBC (Bld) 0.2 %.[facility] AdministrationEosinophils/100 WBC Auto (Bld)Ordered By: Colten Fry on 84-75-7834Hbwroayvhhp/100 WBC (Bld)0.0 %.[facility] AdministrationErythrocyte distribution width Auto (RBC) [Ratio]Ordered By: Gilson Castro on 05-94-2476Segqwsakpcq distribution width (RBC) [Ratio]14.4 % 11.9-15.3FMercy Health West HospitalErythrocyte distribution width Auto (RBC) [Ratio]Ordered By: Colten Fry on 78-16-2923Cqtiavkijcp distribution width (RBC) [Ratio]14.3 %11.9-15.3FMercy Health West HospitalEstimated glomerular filtration rate (GFR) non- AmericanOrdered By: Gilson Castro on 74-23-3925XNJ/1.73 sq M.predicted among non-blacks MDRD (S/P/Bld) [Vol rate/Area]> 60 mL/MinFirelands Regional Medical CenterEstimated glomerular filtration rate (GFR) non- AmericanOrdered By: Colten Fry on 22-81-8730BKQ/1.73 sq M.predicted among non-blacks MDRD (S/P/Bld) [Vol rate/Area]> 60 mL/MinVeterans Health AdministrationGlobulin Calc (S) [Mass/Vol]Ordered By: Gilson Castro on 69-79-3747Tdhfzqmh (S) [Mass/Vol]2.7 g/dL [facility] AdministrationGlobulin Calc (S) [Mass/Vol]Ordered By: Colten Fry on 32-47-3373Unebcihf (S) [Mass/Vol]3.0 g/dLVeterans Health AdministrationHCG ( test) IA.rapid Ql (U)Ordered By: Gilson Castro on 70-23-3156JQS ( test) Ql (U)NegativeVeterans Health Administration HCG ( test) IA.rapid Ql (U)Ordered By: Colten Fry on 16-34-5277LIV ( test) Ql (U)NegativeVeterans Health AdministrationHematocrit Auto (Bld) [Volume fraction]Ordered By: Gilson Castro on 50-18-7999Hkxyqjgwjb (Bld) [Volume fraction]40.6 %36.0-46.0[facility] Health AdministrationHematocrit Auto (Bld) [Volume fraction]Ordered By: Colten Fry on 69-61-3999Xiauqvljoy (Bld) [Volume fraction]39.5 %36.0-46.0[facility] AdministrationKetones Auto test strip (U) [Mass/Vol]Ordered By: Gilson Castro on 94-42-8645Tsodvtd (U) [Mass/Vol]4+NegativeVeterans Health AdministrationKetones Auto test strip (U) [Mass/Vol]Ordered By: Colten Fry on 28-18-0376Jdqettu (U) [Mass/Vol]3+ NegativeVeterans Health AdministrationLaboratory - Chemistry and Chemistry - challengeOrdered By: Gilson Castro on 34-49-5253Jesjwv [Catalytic activity/Vol] 24.0 U/N01-40CfcijantuVeterans Health AdministrationMagnesium [Mass/Vol]2.0 mg/dL 1.6-2.6FMercy Health West HospitalLaboratory - Hematology and Cell counts Ordered By: Gilson Castro on 01-98-1154Ikhcrgckm RBC/100 WBC (Bld) [Ratio]0.1 % 0-0.5FFlower Hospitaltory - Hematology and Cell counts Ordered By: Colten Fry on 16-61-9714Nwppbxhmd RBC/100 WBC (Bld) [Ratio]0.0 % 0-0.5FFlower Hospitaltory - UrinalysisOrdered By: Colten Fry on 29-22-4882Avnihsa casts LM Ql (Urine sed)None seen [LPF]0-8[facility] AdministrationLymphocytes Auto (Bld) [#/Vol]Ordered By: Gilson Castro on 38-01-1139Cswajxuxvhi (Bld) [#/Vol]2.3 10*3/uL1.20-4.8[facility] AdministrationLymphocytes Auto (Bld) [#/Vol]Ordered By: Colten Fry on 51-50-1016Fafopcmbwox (Bld) [#/Vol]1.0 10*3/uL1.20-4.8[facility] AdministrationLymphocytes/100 WBC Auto (Bld)Ordered By: Gilson Castro on 08-19-2022 Lymphocytes/100 WBC (Bld)14.6 %.[facility] AdministrationLymphocytes/100 WBC Auto (Bld)Ordered By: Colten Fry on 91-94-1937Dmfierxntkt/100 WBC (Bld) 7.3 %.[facility] Auto (RBC) [Entitic mass]Ordered By: Gilson Castro on 19-11-5806YMT (RBC) [Entitic mass]27.9 pg25.0-35.0[facility] Auto (RBC) [Entitic mass]Ordered By: Colten Fry on 74-46-7614JMS (RBC) [Entitic mass]27.7 pg25.0-35.0[facility] Auto (RBC) [Mass/Vol]Ordered By: Gilson Castro on 83-95-1608PXFK (RBC) [Mass/Vol]32.6 g/dL31.0-37.0[facility] CenterHC Auto (RBC) [Mass/Vol]Ordered By: Colten Fry on 42-66-7828MMKR (RBC) [Mass/Vol]32.3 g/dL31.0-37.0[facility] AdministrationMCV Auto (RBC) [Entitic vol] Ordered By: Gilson Castro on 11-79-3027WRJ (RBC) [Entitic vol]85.6 sV02-899 [facility] AdministrationMCV Auto (RBC) [Entitic vol]Ordered By: Colten Fry on 81-89-4855SOM (RBC) [Entitic vol]85.7 iK77-143PcgnkxrkrVeterans Health AdministrationMonocytes Auto (Bld) [#/Vol]Ordered By: Gilson Castro on 37-07-2329Xywsqxvwf (Bld) [#/Vol]1.1 10*3/uL0.1-1.00[facility] AdministrationMonocytes Auto (Bld) [#/Vol]Ordered By: Colten Fry on 08-19-2022 Monocytes (Bld) [#/Vol]0.3 10*3/uL0.1-1.00[facility] Monocytes/100 WBC Auto (Bld)Ordered By: Gilson Castro on 85-55-3179Ditjkigkc/100 WBC (Bld)7.3 %.[facility] AdministrationMonocytes/100 WBC Auto (Bld) Ordered By: Colten Fry on 17-31-0960Eiytewivx/100 WBC (Bld)2.1 %.[facility] AdministrationNeutrophils Auto (Bld) [#/Vol]Ordered By: Gilson Castro on 94-90-5133Yqzjkfnogsh (Bld) [#/Vol]12.1 10*3/uL1.2-7.7FMercy Health West HospitalNeutrophils Auto (Bld) [#/Vol]Ordered By: Colten Fry on 68-62-1394Mcbjtqbsttl (Bld) [#/Vol]12.2 10*3/uL1.2-7.7FMercy Health West HospitalNeutrophils/100 WBC Auto (Bld)Ordered By: Gilson Castro on 08-19-2022 Neutrophils/100 WBC (Bld)77.7 %.[facility] AdministrationNeutrophils/100 WBC Auto (Bld)Ordered By: Colten Fry on 21-10-7637Jezewhxysfw/100 WBC (Bld) 90.2 %.[facility] AdministrationNitrite Test strip Ql (U)Ordered By: Gilson Castro on 54-82-8154Gwtcnng Ql (U)NegativeNegativeVeterans Health AdministrationNitrite Test strip Ql (U)Ordered By: Colten Fry on 08-19-2022 Nitrite Ql (U)NegativeNegLima City HospitalNo Panel InformationOrdered By: Gilson Castro on 19-65-2961Poqezktby GFR ()> 60 mL/MinVeterans Health AdministrationComment on above:GFR estimated reference range: According to KDOQI guidelines, <60 ml/min/1.73m2 is sufficient todiagnose a patient with chronic kidney disease.Pharmacy Creatinine Clearance (Oebb850.95[facility]> 60 mL/MinVeterans Health Administration2.0 mg/dL1.6-2.6FMercy Health West Hospital24.0 U/L 22-51[facility]121.95[facility] 15.5 10*3/uL4.5-13.5FMercy Health West Hospital0.1 %0-0.5FOhioHealth Marion General HospitalARS Antigen (LFIA)[facility] AdministrationNo Panel InformationOrdered By: Colten Fry on 51-44-2129Ktpe seen [LPF]0-8 [facility] AdministrationEstimated GFR ()> 60 mL/Min [facility] AdministrationComment on above:GFR estimated reference range: According to KDOQI guidelines, <60 ml/min/1.73m2 is sufficient todiagnose a patient with chronic kidney disease.Pharmacy Creatinine Clearance (Oite829.97 [facility]13.5 10*3/uL4.5-13.5FMercy Health West Hospital0.0 %0-0.5FMercy Health West Hospital> 60 mL/MinVeterans Health Administration106.97[facility] AdministrationPlatelet mean volume Auto (Bld) [Entitic vol]Ordered By: Gilson Castro on 85-24-7269Ialdakrg mean volume (Bld) [Entitic vol]8.8 fL6.3-10.7FMercy Health West HospitalPlatelet mean volume Auto (Bld) [Entitic vol]Ordered By: Colten Fry on 80-67-6617Criinhzg mean volume (Bld) [Entitic vol]8.7 fL6.3-10.7FMercy Health West Hospital Platelets Auto (Bld) [#/Vol]Ordered By: Gilson Castro on 51-66-6308Imzihxdxy (Bld) [#/Vol]314 10*3/kF968-612VihfpdrxfVeterans Health AdministrationPlatelets Auto (Bld) [#/Vol]Ordered By: Colten Fry on 55-31-6342Zfawbbxlm (Bld) [#/Vol]258 10*3/aQ337-586GdkgugrecVeterans Health AdministrationProtein Auto test strip (U) [Mass/Vol]Ordered By: Gilson Castro on 91-23-7373Asjdpon (U) [Mass/Vol]30 mg/dL NegativeVeterans Health AdministrationProtein Auto test strip (U) [Mass/Vol] Ordered By: Colten Fry on 98-40-5015Iqysndf (U) [Mass/Vol]Trace mg/dLNegative [facility] AdministrationProtein [Mass/volume] in Serum or PlasmaOrdered By: Gilson Castro on 42-44-5537Wwyluzb [Mass/Vol]6.7 g/dL6.1-7.9[facility] AdministrationProtein [Mass/volume] in Serum or PlasmaOrdered By: Colten Fry on 86-39-9511Hpedxjw [Mass/Vol]7.5 g/dL6.1-7.9[facility] AdministrationRBC Auto (Bld) [#/Vol]Ordered By: Gilson Castro on 06-43-1334FAE (Bld) [#/Vol]4.74 10*6/uL4.10-5.10[facility] AdministrationRB Auto (Bld) [#/Vol]Ordered By: Colten Fry on 58-28-1979ESV (Bld) [#/Vol]4.60 10*6/uL4.10-5.10[facility] Centererum or plasma alanine aminotransferase measurement without P-5'-P (enzymatic activiOrdered By: Gilson Castro on 02-68-8011ADR No additional P-5'-P [Catalytic activity/Vol]17 U/L 10-60[facility] Centererum or plasma alanine aminotransferase measurement without P-5'-P (enzymatic activiOrdered By: Colten Fry on 12-44-8477OTP No additional P-5'-P [Catalytic activity/Vol]16 U/O81-47XkjhqqnrwUC Medical Centererum or plasma albumin/globulin mass ratioOrdered By: Gilson Castro on 21-67-2235Sokolpj/Globulin [Mass ratio]1.5 {ratio}[facility] Centererum or plasma albumin/globulin mass ratioOrdered By: Colten Fry on 00-57-6556Jhxunyg/Globulin [Mass ratio]1.5 {ratio}[facility] Centererum or plasma alkaline phosphatase measurement (enzymatic activity/volume)Ordered By: Gilson Castro on 64-88-8451EGW [Catalytic activity/Vol]51 U/W60-42BmhheppxvUC Medical Centererum or plasma alkaline phosphatase measurement (enzymatic activity/volume)Ordered By: Colten Fry on 25-67-4011EUV [Catalytic activity/Vol]59 U/D91-72PnzanwcccUC Medical Centererum or plasma anion gap determinationOrdered By: Gilson Castro on 71-51-3927Ztier gap [Moles/Vol]13.8 mmol/L6.0-15.0[facility] Centererum or plasma anion gap determinationOrdered By: Colten Fry on 63-18-6888Oegsi gap [Moles/Vol]19.5 mmol/L6.0-15.0[facility] Centererum or plasma aspartate aminotransferase measurement (enzymatic activity/volume)Ordered By: Gilson Castro on 72-59-9375LQQ [Catalytic activity/Vol]17 U/G82-86GadoriaqsUC Medical Centererum or plasma aspartate aminotransferase measurement (enzymatic activity/volume)Ordered By: Colten Fry on 69-72-9435QFH [Catalytic activity/Vol]20 U/F10-22QzppvkfohUC Medical Centererum or plasma calcium measurement (mass/volume)Ordered By: Gilson Castro on 02-18-5304Kfkvrjc [Mass/Vol]9.1 mg/dL8.2-10.2FOhioHealth Marion General Hospitalerum or plasma calcium measurement (mass/volume)Ordered By: Colten Fry on 12-49-6471Amwcbbz [Mass/Vol]9.8 mg/dL8.2-10.2FOhioHealth Marion General Hospitalerum or plasma chloride measurement (moles/volume) Ordered By: Gilson Castro on 55-83-9286Mieullks [Moles/Vol]104 mmol/L95-114 [facility]ererum or plasma chloride measurement (moles/volume)Ordered By: Colten Fry on 29-83-3658Fohjzngv [Moles/Vol]107 mmol/J32-415MjozespjwUC Medical Centererum or plasma creatinine measurement with calculation of estimated glomerular filtrOrdered By: Gilson Castro on 81-35-6398Nmcdiekkeh and Glomerular filtration rate.predicted panel (S/P/Bld)0.73 mg/dL0.44-1.03[facility] Centererum or plasma creatinine measurement with calculation of estimated glomerular filtrOrdered By: Colten Fry on 62-36-0045Pdwqwvhsug and Glomerular filtration rate.predicted panel (S/P/Bld)0.82 mg/dL0.44-1.03[facility] Centererum or plasma glucose measurement (mass/volume)Ordered By: Gilson Castro on 08-19-2022 Glucose [Mass/Vol]108 mg/sU32-700FgbihqlthVeterans Health AdministrationComment on above:ADA recommended reference range Random Glucose [...] glucose measurement (mass/volume)Ordered By: Colten Fry on 42-18-4309Bbldqfv [Mass/Vol]131 mg/fH24-658GmxvrxjdgVeterans Health AdministrationComment on above:ADA recommended reference range Random Glucose [...] potassium measurement (moles/volume)Ordered By: Gilson Castro on 85-26-7383Hdomquujm [Moles/Vol]3.1 mmol/L3.5-5.1FOhioHealth Marion General Hospitalerum or plasma potassium measurement (moles/volume) Ordered By: Colten Fry on 34-53-3397Ziqjhlqzz [Moles/Vol]3.9 mmol/L3.5-5.1 [facility]ererum or plasma sodium measurement (moles/volume)Ordered By: Gilson Castro on 39-30-6444Zdtfdc [Moles/Vol]138 mmol/D435-927WyrgonoykUC Medical Centererum or plasma sodium measurement (moles/volume)Ordered By: Colten Fry on 89-16-0589Kggsuz [Moles/Vol]142 mmol/K256-785IzvjfojdqUC Medical Centererum or plasma total bilirubin measurement (mass/volume)Ordered By: Gilson Castro on 30-65-8217Ehxidsqsk [Mass/Vol]0.5 mg/dL0.3-1.2FOhioHealth Marion General Hospitalerum or plasma total bilirubin measurement (mass/volume)Ordered By: Colten Fry on 08-19-2022 Bilirubin [Mass/Vol]0.6 mg/dL0.3-1.2FOhioHealth Marion General Hospitalerum or plasma total carbon dioxide measurement (moles/volume)Ordered By: Gilson Castro on 27-64-8056OJ5 [Moles/Vol]23.3 mmol/L22.0-30.0[facility] Centererum or plasma total carbon dioxide measurement (moles/volume)Ordered By: Colten Fry on 82-03-1342FX7 [Moles/Vol]19.4 mmol/L22.0-30.0[facility] Centererum or plasma urea nitrogen measurement (mass/volume) Ordered By: Gilson Castro on 78-45-2169Kcvb nitrogen [Mass/Vol]15 mg/dL08-20 [facility] Centererum or plasma urea nitrogen measurement (mass/volume)Ordered By: Colten Fry on 04-73-1168Fviu nitrogen [Mass/Vol]14 mg/dL08-20[facility] Medical Centerpecific gravity Auto test strip (U) [Rel density]Ordered By: Gilson Castro on 52-37-9559Eelwepny gravity (U) [Rel density]1.0261.001-1.030[facility] Centerpecific gravity Auto test strip (U) [Rel density]Ordered By: Colten Fry on 35-28-4013Wyzinwmy gravity (U) [Rel density]1.0231.001-1.030[facility] Squamous epithelial cells detection in urine sediment by light microscopyOrdered By: Gilson Castro on 14-24-6950Sxbymhtkmp cells.squamous LM Ql (Urine sed)20-30 [HPF]0-[facility] General Hospitalquamous epithelial cells detection in urine sediment by light microscopyOrdered By: Colten Fry on 08-19-2022 Epithelial cells.squamous LM Ql (Urine sed)20-30 [HPF][address] [place], [place] [address]Urine bacteria detection by automated methodOrdered By: Gilson Castro on 11-24-3249Idygaphh Auto Ql (U)2+None [facility] HospitalUrine bacteria detection by automated methodOrdered By: Colten Fry on 47-59-8734Pashptyw Auto Ql (U)1+None [facility] HospitalUrine clarity by refractometry automatedOrdered By: Gilson Castro on 80-76-6547Uoaxcxs Refractometry automated (U)TurbidCleUniversity Hospitals Portage Medical CenterUrine clarity by refractometry automatedOrdered By: Colten Fry on 25-48-0891Cetzisw Refractometry automated (U)CloudyCleUniversity Hospitals Portage Medical CenterUrine glucose measurement by automated test strip (mass/volume)Ordered By: Gilson Castro on 21-85-2896Ypvbvns Auto test strip (U) [Mass/Vol]Normal mg/dLHocking Valley Community HospitalUrine glucose measurement by automated test strip (mass/volume)Ordered By: Colten Fry on 63-39-8636Omlengy Auto test strip (U) [Mass/Vol]Normal mg/dLCherrington HospitalUrine hemoglobin detection by automated test stripOrdered By: Gilson Castro on 70-17-4651Uypfhzmncs Auto test strip Ql (U)NegativeNegativeVeterans Health AdministrationUrine hemoglobin detection by automated test stripOrdered By: Colten Fry on 51-49-5542Zxhdyxxydj Auto test strip Ql (U)NegativeNegative [facility] AdministrationUrine leukocyte esterase detection by automated test stripOrdered By: Gilson Castro on 26-14-4905Rszejjvng esterase Auto test strip Ql (U)2+NegativeVeterans Health AdministrationUrine leukocyte esterase detection by automated test stripOrdered By: Colten Fry on 08-19-2022 Leukocyte esterase Auto test strip Ql (U)1+NegativeVeterans Health AdministrationUrobilinogen Auto test strip (U) [Mass/Vol]Ordered By: Gilson Castro on 60-25-0592Ohpajqxsyysg (U) [Mass/Vol]Normal mg/dLNormCentervilleUrobilinogen Auto test strip (U) [Mass/Vol]Ordered By: Colten Fry on 72-83-3747Kngooczvlsay (U) [Mass/Vol]Normal mg/dLNormCentervillepH Auto test strip (U)Ordered By: Gilson Castro on 53-19-9946vR (U)8.0 [pH]5.0-9.0[facility] AdministrationpH Auto test strip (U)Ordered By: Colten Fry on 56-72-9221nZ (U)6.0 [pH]5.0-9.0[facility] AdministrationCOVID-19 SOFIAOrdered By: Joss Rivera on 08-18-2022 SARS-CoV+SARS-CoV-2 (COVID-19) Ag IA.rapid Ql (Resp)NegativeNegativeVeterans Health AdministrationComment on above:This is a duplicate Adia SARS Antigen (JOSE A) result to be used for statistical tracking purpose only.No Panel InformationOrdered By: Joss Rivera on 90-62-1445XHUP Antigen (LFIA)[facility] AdministrationBasophils Auto (Bld) [#/Vol]Ordered By: Modesta Chand on 40-03-4410Krpqawwuy (Bld) [#/Vol]0.1 10*3/uL0.0-0.1FMercy Health West HospitalBasophils/100 WBC Auto (Bld)Ordered By: Modesta Chand on 47-19-5366Qocrnudup/100 WBC (Bld)1.2 %.[facility] AdministrationBlood hemoglobin measurement (mass/volume)Ordered By: Modesta Chand on 83-24-3587Ozsepsclwy (Bld) [Mass/Vol]13.8 g/dL12.0-16.0[facility] AdministrationBlood leukocytes automated count (number/volume)Ordered By: Modesta Chand on 92-61-5708LRI (Bld) [#/Vol]7.9 10*3/uL4.5-13.5FMercy Health West HospitalBody fluid albumin measurement (mass/volume)Ordered By: Modesta Chand on 09-02-2480Wzhctyb (Body fld) [Mass/Vol]4.5 g/dL3.2-5.5 [facility] AdministrationCT biopsyOrdered By: Modesta Chand on 23-02-6426Qunnkmettzb [Mass/Vol]328 mg/uS994-914FjorctuciVeterans Health AdministrationCreatinine and Glomerular filtration rate.predicted panel (S/P/Bld)Ordered By: Modesta Chand on 35-49-2197Qjggkcucej [Mass/Vol]0.67 mg/dL0.44-1.03 [facility] AdministrationEosinophils Auto (Bld) [#/Vol]Ordered By: Modesta Chand on 20-28-4444Xxfehqsfbgc (Bld) [#/Vol]0.6 10*3/uL0.0-0.7 [facility] AdministrationEosinophils/100 WBC Auto (Bld)Ordered By: Modesta Chand on 32-54-2145Pinaskojyda/100 WBC (Bld)7.2 %.[facility] AdministrationErythrocyte distribution width Auto (RBC) [Ratio]Ordered By: Modesta Chand on 28-51-2685Zedpiuuvlxe distribution width (RBC) [Ratio]13.6 %11.9-15.3FMercy Health West HospitalEstimated glomerular filtration rate (GFR) non- AmericanOrdered By: Modesta Chand on 06-75-7130ZPX/1.73 sq M.predicted among non-blacks MDRD (S/P/Bld) [Vol rate/Area]> 60 mL/MinVeterans Health AdministrationFerritin [Mass/volume] in Serum or PlasmaOrdered By: Modesta Chand on 49-40-7633Avuguxpm [Mass/Vol] 28.5 ng/lA86-222.8[facility] AdministrationGlobulin Calc (S) [Mass/Vol] Ordered By: Modesta Chand on 17-40-5248Xkfezlzu (S) [Mass/Vol]2.5 g/dL [facility] AdministrationHematocrit Auto (Bld) [Volume fraction]Ordered By: Modesta Chand on 04-26-3737Spfzdqivpa (Bld) [Volume fraction]42.3 % 36.0-46.0[facility] AdministrationIron [Mass/volume] in Serum or Plasma Ordered By: Modesta Chand on 03-28-7426Sjqe [Mass/Vol]52 ug/vY74-670 [facility] AdministrationIron binding capacity [Mass/volume] in Serum or PlasmaOrdered By: Modesta Chand on 25-29-1501Xeag binding capacity [Mass/Vol]459 ug/oN179-634BwhgjoevgVeterans Health AdministrationIron saturation [Mass Fraction] in Serum or PlasmaOrdered By: Modesta Chand on 27-31-4647Ttbv saturation [Mass fraction]11.0 %20-50[facility] AdministrationLaboratory - Hematology and Cell countsOrdered By: Modesta Chand on 06-25-2022 Nucleated RBC/100 WBC (Bld) [Ratio]0.0 %0-0.5FMercy Health West Hospital Lymphocytes Auto (Bld) [#/Vol]Ordered By: Modesta Chand on 06-25-2022 Lymphocytes (Bld) [#/Vol]2.1 10*3/uL1.20-4.8[facility] Lymphocytes/100 WBC Auto (Bld)Ordered By: Modesta Chand on 06-25-2022 Lymphocytes/100 WBC (Bld)26.9 %.[facility] Auto (RBC) [Entitic mass]Ordered By: Modesta Chand on 69-99-1461VAY (RBC) [Entitic mass]28.1 pg25.0-35.0[facility] AdministrationMC Auto (RBC) [Mass/Vol] Ordered By: Modesta Chand on 03-48-0895GGWO (RBC) [Mass/Vol]32.7 g/dL 31.0-37.0[facility] AdministrationMCV Auto (RBC) [Entitic vol]Ordered By: Modesta Chand on 16-65-4015RYW (RBC) [Entitic vol]85.8 cG37-176 [facility] AdministrationMonocytes Auto (Bld) [#/Vol]Ordered By: Modesta Chand on 70-41-8611Hnjfabwlf (Bld) [#/Vol]0.6 10*3/uL0.1-1.00 [facility] AdministrationMonocytes/100 WBC Auto (Bld)Ordered By: Modesta Chand on 67-26-1275Zflfdctrg/100 WBC (Bld)7.2 %.[facility] AdministrationNeutrophils Auto (Bld) [#/Vol]Ordered By: Modesta Chand on 67-24-8092Iprrfqdnvxk (Bld) [#/Vol]4.5 10*3/uL1.2-7.7FMercy Health West HospitalNeutrophils/100 WBC Auto (Bld)Ordered By: Modesta Chand on 61-30-5113Bwdwfpuyfsd/100 WBC (Bld)57.5 %.[facility] AdministrationNo Panel InformationOrdered By: Modesta Chand on 24-49-667743258812-Fyzbibr Vitamin D Total35.9 ng/lO07-278MaqtlyybvVeterans Health AdministrationComment on above: VITAMIN D STATUS 25(OH)VITAMIN D RANGE (ng/mL) Deficient <20 Insufficient 20 to <30 Sufficient 30 to 100 Reference: Danica MF,Chayo NC, Sony GUERRERO, et al. Evaluation,treatment, and prevention of vitamin D deficiency; an Endocrine Society clinical practice guideline. JCEM. 2010; 96(7):1911-30.Absolute Reticulocyte Count0.066 10*6/uL0.024-0.084[facility] Estimated GFR ()> 60 mL/MinVeterans Health Administration Comment on above:GFR estimated reference range: According to KDOQI guidelines, <60 ml/min/1.73m2 is sufficient todiagnose a patient with chronic kidney disease.Percent Reticulocyte Count1.3 %0.5-1.5FMercy Health West Hospital Pharmacy Creatinine Clearance (ChemN/AFMercy Health West HospitalPlatelet mean volume Auto (Bld) [Entitic vol]Ordered By: Modesta Chand on 38-93-6769Algmvjsu mean volume (Bld) [Entitic vol]9.0 fL6.3-10.7FMercy Health West HospitalPlatelets Auto (Bld) [#/Vol]Ordered By: Modesta Chand on 87-83-0963Plkdkoudf (Bld) [#/Vol]263 10*3/fM471-535NxyjcgbtdVeterans Health AdministrationProtein [Mass/volume] in Serum or PlasmaOrdered By: Modesta Chand on 08-93-8777Rgpwceo [Mass/Vol]7.0 g/dL6.1-7.9[facility] AdministrationRBC Auto (Bld) [#/Vol]Ordered By: Modesta Chand on 92-89-6637JIC (Bld) [#/Vol]4.94 10*6/uL4.10-5.10[facility] Centererum or plasma alanine aminotransferase measurement without P-5'-P (enzymatic activiOrdered By: Modesta Chand on 57-84-9882PQW No additional P-5'-P [Catalytic activity/Vol]18 U/Q53-53MpvhcmagyUC Medical Centererum or plasma albumin/globulin mass ratioOrdered By: Mdoesta Chand on 77-76-3051Wwyyloz/Globulin [Mass ratio]1.8 {ratio}[facility] Centererum or plasma alkaline phosphatase measurement (enzymatic activity/volume)Ordered By: Modesta Chand on 02-82-1138CFE [Catalytic activity/Vol]65 U/M46-71XverlbulbUC Medical Centererum or plasma aspartate aminotransferase measurement (enzymatic activity/volume)Ordered By: Modesta Chand on 80-92-8437BWC [Catalytic activity/Vol]18 U/L10-42 [facility] Centererum or plasma calcium measurement (mass/volume)Ordered By: Modesta Chand on 35-21-8247Ohjuahy [Mass/Vol]10.2 mg/dL8.2-10.2FOhioHealth Marion General Hospitalerum or plasma chloride measurement (moles/volume)Ordered By: Modesta Chand on 80-40-2274Ovmhhsrr [Moles/Vol]102 mmol/X48-184JeqwwlfbzUC Medical Centererum or plasma glucose measurement (mass/volume)Ordered By: Modesta Chand on 06-25-2022 Glucose [Mass/Vol]87 mg/bV83-434CtwoyyvkxVeterans Health AdministrationComment on above:ADA recommended reference range Random Glucose Reference Range is dependent on time and content of last meal. Glucose of more than 200 mg/dL in a nonstressed, ambulatory subject supports the diagnosis of Diabetes Mellitus.Serum or plasma potassium measurement (moles/volume)Ordered By: Modesta Chand on 82-60-6753Nmevrjdee [Moles/Vol] 4.4 mmol/L3.5-5.1FOhioHealth Marion General Hospitalerum or plasma sodium measurement (moles/volume)Ordered By: Modesta Chand on 14-29-6716Zduvwn [Moles/Vol]137 mmol/U507-080YadwsupbnUC Medical Centererum or plasma total bilirubin measurement (mass/volume)Ordered By: Modesta Chand on 66-39-9766Zgoxwrgtq [Mass/Vol]0.4 mg/dL0.3-1.2FMercy Health West Hospital Serum or plasma total carbon dioxide measurement (moles/volume)Ordered By: Modesta Chand on 79-39-7417BP6 [Moles/Vol]23.8 mmol/L22.0-30.0[facility] Centererum or plasma urea nitrogen measurement (mass/volume) Ordered By: Modesta Chand on 39-53-7215Vvmu nitrogen [Mass/Vol]14 mg/dL 9-23[facility] AdministrationTS DL <= 0.005 mIU/L QnOrdered By: Modesta Chand on 73-87-0496BKH Qn1.05 m[IU]/L0.45-5.33[facility] AdministrationThyroxine (T4) free [Mass/volume] in Serum or PlasmaOrdered By: Modesta Chand on 88-03-5740Lpjt T4 [Mass/Vol]0.74 ng/dL0.61-1.12[facility] AdministrationHCG ( test) IA.rapid Ql (U)Ordered By: Brennen Britt on 79-87-3902ZHA ( test) Ql (U)NegativeVeterans Health AdministrationCOVID-19 Positive/NegativeOrdered By: Brennen Britt on 06-07-2022 SARS-CoV-2 (COVID-19) N gene JANAK+probe Ql (Resp)NegativeNegativeVeterans Health AdministrationComment on above:Testing for SARS-CoV-2 by RT-PCR This test was developed and its performance characteristics determined by [employer], [employer]) and validated at the [facility]. This test has not been FDA cleared [...] Serum or PlasmaOrdered By: Modesta Chand on 95-12-7413Yuufxya [Mass/Vol]3.9 g/dL3.2-5.5FMercy Health West HospitalBasophils Auto (Bld) [#/Vol]Ordered By: Modesta Chand on 17-67-7575Wntqzzlay (Bld) [#/Vol]0.1 10*3/uL0.0-0.1FMercy Health West HospitalBasophils/100 WBC Auto (Bld)Ordered By: Modesta Chand on 58-84-9040Njamftkah/100 WBC (Bld)1.1 %.[facility] AdministrationBlood hemoglobin measurement (mass/volume)Ordered By: Modesta Chand on 33-06-4731Ahbjdbvbmd (Bld) [Mass/Vol]13.6 g/dL12.0-16.0[facility] AdministrationBlood leukocytes automated count (number/volume)Ordered By: Modesta Chand on 78-72-5251GGO (Bld) [#/Vol]10.6 10*3/uL4.5-13.5FMercy Health West HospitalC reactive protein [Mass/volume] in Serum or Plasma Ordered By: Modesta Chand on 07-32-7924WGL [Mass/Vol]0.6 mg/dL0.0-1.0 [facility] AdministrationCT biopsyOrdered By: Modesta Chand on 05-67-2504Drftnnageoy [Mass/Vol]292 mg/lS707-808PdoecrlirVeterans Health AdministrationCreatinine and Glomerular filtration rate.predicted panel (S/P/Bld)Ordered By: Modesta Chand on 42-01-4811Ungimgxube [Mass/Vol]0.63 mg/dL0.44-1.03 [facility] AdministrationEosinophils Auto (Bld) [#/Vol]Ordered By: Modesta Chand on 95-97-5619Gnrsnuoapgq (Bld) [#/Vol]0.4 10*3/uL0.0-0.7 [facility] AdministrationEosinophils/100 WBC Auto (Bld)Ordered By: Modesta Chand on 77-07-7141Qoxktymjycp/100 WBC (Bld)3.6 %.[facility] AdministrationErythrocyte distribution width Auto (RBC) [Ratio]Ordered By: Modesta Chand on 32-83-1137Tucizfspglx distribution width (RBC) [Ratio]13.7 %11.9-15.3FMercy Health West HospitalErythrocyte sedimentation rate by Photometric methodOrdered By: Modesta Chand on 32-06-9852FHX Photometric method (Bld) [Velocity]5 mm/hr0-19[facility] Estimated glomerular filtration rate (GFR) non- AmericanOrdered By: Modetsa Chand on 81-24-9793GKQ/1.73 sq M.predicted among non-blacks MDRD (S/P/Bld) [Vol rate/Area]> 60 mL/MinVeterans Health AdministrationFerritin [Mass/volume] in Serum or PlasmaOrdered By: Modesta Chand on 05-26-2022 Ferritin [Mass/Vol]14.2 ng/xX95-352.8[facility] AdministrationFolate [Mass/volume] in Serum or PlasmaOrdered By: Modesta Chand on 05-26-2022 Folate [Mass/Vol]13.0 ng/mL>5.9[facility] AdministrationComment on above:Folate reference range: >5.9 ng/ml The WHO technical consultation on folate and vitamin b12 deficiencies has determined that folate concentrations less than 4 ng/ml are considered deficient.Globulin Calc (S) [Mass/Vol]Ordered By: Modesta Chand on 68-64-3267Phumsfzv (S) [Mass/Vol]2.3 g/dLVeterans Health AdministrationGlucose mean value [Mass/volume] in Blood Estimated from glycated hemoglobinOrdered By: Modesta Chand on 58-34-4223Mneczot glucose Estimated from glycated hemoglobin (Bld) [Mass/Vol]111 mg/dLVeterans Health AdministrationHematocrit Auto (Bld) [Volume fraction]Ordered By: Modesta Chand on 88-14-4174Getpgojnfu (Bld) [Volume fraction]41.4 %36.0-46.0 [facility] AdministrationHemoglobin A1c percentageOrdered By: Modesta Chand on 04-46-4867ZcL6t (Bld) [Mass fraction]5.5 %4.3-5.6FMercy Health West HospitalComment on above:Increased risk for diabetes: 5.7 - 6.4 diabetes: >6.4 glycemic control for adults with diabetes: <7.0Iron [Mass/volume] in Serum or PlasmaOrdered By: Modesta Chand on 99-85-9816Yzbg [Mass/Vol]63 ug/jV64-596 [facility] AdministrationIron binding capacity [Mass/volume] in Serum or PlasmaOrdered By: Modesta Chand on 23-47-3617Mlsg binding capacity [Mass/Vol]409 ug/qU688-533LqborjhzwVeterans Health AdministrationIron saturation [Mass Fraction] in Serum or PlasmaOrdered By: Modesta Chand on 67-62-0106Sijw saturation [Mass fraction]15.0 %20-50[facility] AdministrationLaboratory - Chemistry and Chemistry - challengeOrdered By: Modesta Chand on 37-91-2128Pcrxbgeqv (Vitamin B12) [Mass/Vol]329 pg/wN098-089UqjpnjqmvVeterans Health AdministrationLaboratory - Hematology and Cell countsOrdered By: Modesta Chand on 21-26-5216Drtmkahof RBC/100 WBC (Bld) [Ratio]0.0 %0-0.5FMercy Health West HospitalLymphocytes Auto (Bld) [#/Vol]Ordered By: Modesta Chand on 39-88-2181Odxuembkxjm (Bld) [#/Vol]2.3 10*3/uL1.20-4.8[facility] AdministrationLymphocytes/100 WBC Auto (Bld)Ordered By: Modesta Chand on 46-65-2035Mrujvdapahn/100 WBC (Bld)21.6 %.[facility] AdministrationMCH Auto (RBC) [Entitic mass]Ordered By: Modesta Chand on 12-50-3344YBH (RBC) [Entitic mass]28.6 pg25.0-35.0[facility] Health AdministrationMCHC Auto (RBC) [Mass/Vol]Ordered By: Modesta Chand on 05-26-2022 MCHC (RBC) [Mass/Vol]33.0 g/dL31.0-37.0[facility] AdministrationMCV Auto (RBC) [Entitic vol]Ordered By: Modesta Chand on 79-50-8742CKP (RBC) [Entitic vol]86.6 vC96-715PqrjznxtbVeterans Health AdministrationMonocytes Auto (Bld) [#/Vol]Ordered By: Modesta Chand on 18-77-9053Liruwbkhq (Bld) [#/Vol]0.6 10*3/uL0.1-1.00[facility] AdministrationMonocytes/100 WBC Auto (Bld) Ordered By: Modesta Chand on 84-04-7625Chwnrllfi/100 WBC (Bld)5.9 %. [facility] AdministrationNeutrophils Auto (Bld) [#/Vol]Ordered By: Modesta Chand on 83-55-1322Khdslvnrwqs (Bld) [#/Vol]7.2 10*3/uL1.2-7.7 [facility] AdministrationNeutrophils/100 WBC Auto (Bld)Ordered By: Modesta Chand on 97-18-1616Sfazmeairhu/100 WBC (Bld)67.8 %.[facility] AdministrationNo Panel InformationOrdered By: Modesta Chand on 48-51-702306660943-Qqyocqz Vitamin D Total26.9 ng/oT67-648AlfvyosbaVeterans Health AdministrationComment on above:VITAMIN D STATUS 25(OH)VITAMIN D RANGE (ng/mL) Deficient <20 Insufficient 20 to <30 Sufficient 30 to 100 Reference: Danica MF,Chayo WOODRUFF, Sony GUERRERO, et al. Evaluation,treatment, and prevention of vitamin D deficiency; an Endocrine Society clinical practice guideline. JCEM. 2010; 96(7):1911-30.Estimated GFR ()> 60 mL/MinVeterans Health AdministrationComment on above: GFR estimated reference range: According to KDOQI guidelines, <60 ml/min/1.73m2 is sufficient todiagnose a patient with chronic kidney disease.Pharmacy Creatinine Clearance (ChemN/AFMercy Health West HospitalPlatelet mean volume Auto (Bld) [Entitic vol]Ordered By: Modesta Chand on 05-26-2022 Platelet mean volume (Bld) [Entitic vol]8.9 fL6.3-10.7FMercy Health West HospitalPlatelets Auto (Bld) [#/Vol]Ordered By: Modesta Chand on 05-26-2022 Platelets (Bld) [#/Vol]286 10*3/aT450-049JcocdkcbhVeterans Health Administration Protein [Mass/volume] in Serum or PlasmaOrdered By: Modesta Chand on 80-63-6093Ubyhbyp [Mass/Vol]6.2 g/dL6.1-7.9[facility] AdministrationRBC Auto (Bld) [#/Vol]Ordered By: Modesta Chand on 37-50-0070SSL (Bld) [#/Vol] 4.78 10*6/uL4.10-5.10[facility] Centererum nuclear antibody titerOrdered By: Modesta Chand on 57-88-2935Zhnfqck Ab (S) [Titer]Negative .[facility] AdministrationComment on above:Negative <1:80 Borderline 1:80 Positive >1:80 ICAP nomenclature: AC-0 For more information about Hep-2 cell patterns use ANApatterns.org, the official website for the International Consensus on Antinuclear Antibody (EDMOND) Patterns (ICAP). Performed at: [employer] [facility] [id number] Snow Maker: James Nelson PhD, Phone: [phone] or plasma alanine aminotransferase measurement without P-5'-P (enzymatic activiOrdered By: Modesta Chand on 49-41-2725VVG No additional P-5'-P [Catalytic activity/Vol]50 U/N33-90HqfihbwwmUC Medical Centererum or plasma albumin/globulin mass ratioOrdered By: Modesta Chand on 05-26-2022 Albumin/Globulin [Mass ratio]1.7 {ratio}[facility] Centererum or plasma alkaline phosphatase measurement (enzymatic activity/volume)Ordered By: Modesta Chand on 55-94-1156MFX [Catalytic activity/Vol]58 U/L32-92 [facility] Centererum or plasma aspartate aminotransferase measurement (enzymatic activity/volume)Ordered By: Modesta Chand on 53-80-1874JXX [Catalytic activity/Vol]25 U/R00-57DsejugkvhUC Medical Centererum or plasma calcium measurement (mass/volume)Ordered By: Modesta Chand on 42-23-9089Izlbjxo [Mass/Vol]9.3 mg/dL8.2-10.2FOhioHealth Marion General Hospitalerum or plasma chloride measurement (moles/volume)Ordered By: Modesta Chand on 47-10-5863Kgzgulwe [Moles/Vol]103 mmol/J57-085IggounzstUC Medical Centererum or plasma glucose measurement (mass/volume)Ordered By: Modesta Chand on 16-01-6994Lsfngbk [Mass/Vol]111 mg/jD35-614MynzxvaxlVeterans Health AdministrationComment on above:ADA recommended reference range Random Glucose Reference Range is dependent on time and content of last meal. Glucose of more than 200 mg/dL in a nonstressed, ambulatory subject supports the diagnosis of Diabetes Mellitus.Serum or plasma potassium measurement (moles/volume)Ordered By: Modesta Chand on 11-50-3913Xgdbvwucx [Moles/Vol] 4.3 mmol/L3.5-5.1FOhioHealth Marion General Hospitalerum or plasma sodium measurement (moles/volume)Ordered By: Modesta Chand on 97-49-7318Zpacmr [Moles/Vol]137 mmol/Z027-478QodesgmulUC Medical Centererum or plasma total bilirubin measurement (mass/volume)Ordered By: Modesta Chand on 30-83-8037Dksoidaiz [Mass/Vol]0.5 mg/dL0.3-1.2FMercy Health West Hospital Serum or plasma total carbon dioxide measurement (moles/volume)Ordered By: Modesta Chand on 08-90-8290LQ8 [Moles/Vol]24.9 mmol/L22.0-30.0[facility] Centererum or plasma urea nitrogen measurement (mass/volume) Ordered By: Modesta Chand on 52-67-8065Kgox nitrogen [Mass/Vol]9 mg/dL9-23 [facility] AdministrationUrine culture routineOrdered By: Gilson Castro on 07-70-8976Oirglbyp identified Cx Nom (U)2 DaysVeterans Health AdministrationAmphetamine Screen Ql (U)Ordered By: Gilson Castro on 05-16-2022 Amphetamines Ql (U)NegativeNegativeVeterans Health AdministrationAutomated erythrocytes count in urine sediment (number/area)Ordered By: Gilson Castro on 74-77-8379ILV Auto (Urine sed) [#/Area]3-4 [HPF]0-4FMercy Health West HospitalAutomated leukocytes count in urine sediment (number/area)Ordered By: Gilson Castro on 47-30-9855XQK Auto (Urine sed) [#/Area]5-9 [HPF]0-4FMercy Health West HospitalAutomated urine hyaline casts count (number/volume) Ordered By: Gilson Castro on 34-94-7909Nslelbp casts Auto (U) [#/Vol]None seen [LPF]0-1FMercy Health West HospitalBarbiturates [Presence] in UrineOrdered By: Gilson Castro on 56-00-1851Gwqelhggivdi Ql (U)PositiveNegLima City HospitalBasophils Auto (Bld) [#/Vol]Ordered By: Gilson Castro on 95-08-5160Cuqxlstqy (Bld) [#/Vol]0.0 10*3/uL0.0-0.1FMercy Health West HospitalBasophils/100 WBC Auto (Bld)Ordered By: Gilson Castro on 05-16-2022 Basophils/100 WBC (Bld)0.4 %.[facility] AdministrationBenzodiazepines [Presence] in UrineOrdered By: Gilson Castro on 78-81-5864Zigtzuqfvevcvvb Ql (U) NegativeNegLima City HospitalBilirubin Test strip Ql (U) Ordered By: Gilson Castro on 14-94-0962Jdutikohk Ql (U)NegativeNegLima City HospitalBlood hemoglobin measurement (mass/volume)Ordered By: Gilson Castro on 37-25-2700Zjovlrkjcf (Bld) [Mass/Vol]13.4 g/dL12.0-16.0 [facility] AdministrationBlood leukocytes automated count (number/volume)Ordered By: Gilson Castro on 53-73-6719OLQ (Bld) [#/Vol]10.0 10*3/uL4.5-13.5FMercy Health West HospitalBody fluid albumin measurement (mass/volume)Ordered By: Gilson Castro on 91-06-0789Uvwiwuy (Body fld) [Mass/Vol]4.3 g/dL3.2-5.5FMercy Health West HospitalCannabinoids [Presence] in Urine by Screen methodOrdered By: Gilson Castro on 05-16-2022 Cannabinoids Screen Ql (U)PositiveNegLima City Hospital Comment on above:These are unconfirmed results and should not be used for legal purposes. Drug Cut-Off Concentration: AMPH 1000 ng/mL NIKOLAS 200 ng/mL SHRAVAN 200 ng/mL COCM 300 ng/mL OP 300 ng/mL PCP 25 ng/mL THC 20 ng/mLCasts typing in urine sediment by light microscopyOrdered By: Gilson Castro on 75-42-7376Pfpzp LM Nom (Urine sed)None seen [LPF]None SeenVeterans Health AdministrationColor Auto (U)Ordered By: Gilson Castro on 05-16-2022 Color (U)YellowYellowVeterans Health AdministrationCreatinine and Glomerular filtration rate.predicted panel (S/P/Bld)Ordered By: Gilson Castro on 05-16-2022 Creatinine [Mass/Vol]0.80 mg/dL0.44-1.03[facility] Eosinophils Auto (Bld) [#/Vol]Ordered By: Gilson Castro on 03-55-6808Cdmkosgmrmj (Bld) [#/Vol]0.1 10*3/uL0.0-0.7FMercy Health West HospitalEosinophils/100 WBC Auto (Bld)Ordered By: Gilosn Castro on 93-47-7054Vhtromwtqnd/100 WBC (Bld) 0.7 %.[facility] AdministrationErythrocyte distribution width Auto (RBC) [Ratio]Ordered By: Gilson Castro on 55-55-4295Livzivyqfzd distribution width (RBC) [Ratio]13.4 %11.9-15.3FMercy Health West HospitalEstimated glomerular filtration rate (GFR) non- AmericanOrdered By: Gilson Castro on 86-31-0358LOE/1.73 sq M.predicted among non-blacks MDRD (S/P/Bld) [Vol rate/Area]> 60 mL/MinVeterans Health AdministrationGlobulin Calc (S) [Mass/Vol]Ordered By: Gilson Castro on 59-12-9098Xwqchxbt (S) [Mass/Vol]2.7 g/dL [facility] AdministrationHCG ( test) IA.rapid Ql (U)Ordered By: Gilson Castro on 74-30-8526VKP ( test) Ql (U)NegativeVeterans Health AdministrationHematocrit Auto (Bld) [Volume fraction]Ordered By: Gilson Castro on 95-75-8282Omfeqngpad (Bld) [Volume fraction]39.4 %36.0-46.0[facility] AdministrationKetones Auto test strip (U) [Mass/Vol]Ordered By: Gilson Castro on 98-36-0596Liosowf (U) [Mass/Vol]3+NegativeVeterans Health AdministrationLaboratory - Chemistry and Chemistry - challengeOrdered By: Gilson Castro on 92-03-6280Ecnzrd [Catalytic activity/Vol]26.0 U/G47-09LelgdxeimVeterans Health AdministrationLaboratory - Drug toxicologyOrdered By: Gilson Castro on 13-64-9986Nqejigc Ql (U)NegativeNegativeVeterans Health Administration Laboratory - Hematology and Cell countsOrdered By: Gilson Castro on 05-16-2022 Nucleated RBC/100 WBC (Bld) [Ratio]0.0 %0-0.5FMercy Health West Hospital Lymphocytes Auto (Bld) [#/Vol]Ordered By: Gilson Castro on 81-84-5122Yvcyewadwyp (Bld) [#/Vol]1.9 10*3/uL1.20-4.8[facility] Lymphocytes/100 WBC Auto (Bld)Ordered By: Gilson Castro on 05-16-2022 Lymphocytes/100 WBC (Bld)18.7 %.[facility] Auto (RBC) [Entitic mass]Ordered By: Gilson Castro on 00-90-2659ENT (RBC) [Entitic mass] 28.6 pg25.0-35.0[facility] AdministrationMCHC Auto (RBC) [Mass/Vol] Ordered By: Gilson Castro on 53-17-6884GHRO (RBC) [Mass/Vol]34.1 g/dL31.0-37.0 [facility] AdministrationMCV Auto (RBC) [Entitic vol]Ordered By: Gilson Castro on 71-27-7839NVS (RBC) [Entitic vol]84.0 xA31-541AvogvctboVeterans Health AdministrationMonocytes Auto (Bld) [#/Vol]Ordered By: Gilson Castro on 91-86-9419Fznmelpyo (Bld) [#/Vol]0.9 10*3/uL0.1-1.00[facility] AdministrationMonocytes/100 WBC Auto (Bld)Ordered By: Gilson Castro on 05-16-2022 Monocytes/100 WBC (Bld)9.2 %.[facility] AdministrationNeutrophils Auto (Bld) [#/Vol]Ordered By: Gilson Castro on 49-29-8485Aitldiivnlg (Bld) [#/Vol]7.1 10*3/uL1.2-7.7FMercy Health West HospitalNeutrophils/100 WBC Auto (Bld) Ordered By: Gilson Castro on 44-36-8708Tfchtxbltsi/100 WBC (Bld)71.0 %.[facility] AdministrationNitrite Test strip Ql (U)Ordered By: Gilson Castro on 36-17-4856Ditslgj Ql (U)NegativeNegativeVeterans Health AdministrationNo Panel InformationOrdered By: Gilson Castro on 82-71-7555Yernkolel GFR ()> 60 mL/MinVeterans Health AdministrationComment on above:GFR estimated reference range: According to KDOQI guidelines, <60 ml/min/1.73m2 is sufficient todiagnose a patient with chronic kidney disease.Pharmacy Creatinine Clearance (Mhxg069.65[facility] AdministrationPhencyclidine Screen Ql (U)Ordered By: Gilson Castro on 83-25-5305Fmznyuipbgblt Ql (U)NegativeNegative [facility] AdministrationPlatelet mean volume Auto (Bld) [Entitic vol] Ordered By: Gilson Castro on 20-63-7776Difkfnmh mean volume (Bld) [Entitic vol] 8.5 fL6.3-10.7FMercy Health West HospitalPlatelets Auto (Bld) [#/Vol] Ordered By: Gilson Castro on 27-36-9970Euoisxkhe (Bld) [#/Vol]241 10*3/lZ965-504 [facility] AdministrationProtein Auto test strip (U) [Mass/Vol]Ordered By: Gilson Castro on 39-42-7286Fhogcev (U) [Mass/Vol]Trace mg/dLNegative [facility] AdministrationProtein [Mass/volume] in Serum or PlasmaOrdered By: Gilson Castro on 16-86-1922Zjqxvqu [Mass/Vol]7.0 g/dL6.1-7.9[facility] AdministrationRBC Auto (Bld) [#/Vol]Ordered By: Gilson Castro on 75-55-2064FRP (Bld) [#/Vol]4.69 10*6/uL4.10-5.10[facility] Centererum or plasma alanine aminotransferase measurement without P-5'-P (enzymatic activiOrdered By: Gilson Castro on 77-81-9207GOG No additional P-5'-P [Catalytic activity/Vol]23 U/I71-12CvqgsidtvUC Medical Centererum or plasma albumin/globulin mass ratioOrdered By: Gilson Castro on 05-16-2022 Albumin/Globulin [Mass ratio]1.6 {ratio}[facility] Centererum or plasma alkaline phosphatase measurement (enzymatic activity/volume)Ordered By: Gilson Castro on 18-34-9820TBS [Catalytic activity/Vol]58 U/V98-99CmiyfplvdUC Medical Centererum or plasma aspartate aminotransferase measurement (enzymatic activity/volume)Ordered By: Gilson Castro on 46-68-2473ICG [Catalytic activity/Vol]22 U/J94-64XvnwuumcaUC Medical Centererum or plasma calcium measurement (mass/volume)Ordered By: Gilson Castro on 18-90-0508Cnlkxzk [Mass/Vol]9.2 mg/dL8.2-10.2FOhioHealth Marion General Hospitalerum or plasma chloride measurement (moles/volume)Ordered By: Gilson Castro on 05-16-2022 Chloride [Moles/Vol]97 mmol/C01-633BibdlbpwuUC Medical Centererum or plasma glucose measurement (mass/volume)Ordered By: Gilson Castro on 05-16-2022 Glucose [Mass/Vol]90 mg/jQ83-999FpdiyssthVeterans Health AdministrationComment on above:ADA recommended reference range Random Glucose Reference Range is dependent on time and content of last meal. Glucose of more than 200 mg/dL in a nonstressed, ambulatory subject supports the diagnosis of Diabetes Mellitus.Serum or plasma potassium measurement (moles/volume)Ordered By: Gilson Castro on 48-57-1280Lpojsmcci [Moles/Vol]3.2 mmol/L3.5-5.1FOhioHealth Marion General Hospitalerum or plasma sodium measurement (moles/volume)Ordered By: Gilson Castro on 09-62-9778Xasnia [Moles/Vol]135 mmol/J627-962KfkvzznakUC Medical Centererum or plasma total bilirubin measurement (mass/volume)Ordered By: Gilson Castro on 96-94-8863Lyfqcbuuo [Mass/Vol]1.0 mg/dL0.3-1.2FOhioHealth Marion General Hospitalerum or plasma total carbon dioxide measurement (moles/volume)Ordered By: Gilson Castro on 12-47-2333YG6 [Moles/Vol]24.6 mmol/L22.0-30.0[facility] Serum or plasma urea nitrogen measurement (mass/volume)Ordered By: Gilson Castro on 69-80-3984Wdjx nitrogen [Mass/Vol]23 mg/dL9-23UC Medical Centerpecific gravity Auto test strip (U) [Rel density]Ordered By: Gilson Castro on 19-16-0938Fxejvjix gravity (U) [Rel density]1.0231.001-1.030 [facility] Centerquamous epithelial cells detection in urine sediment by light microscopyOrdered By: Gilson Castro on 21-62-2470Hqzwnotqxf cells.squamous LM Ql (Urine sed)20-30 [HPF]0-2FMercy Health West Hospital Urine bacteria detection by automated methodOrdered By: Gilson Castro on 83-90-5521Vcwbcqtt Auto Ql (U)1+None SeenVeterans Health AdministrationUrine clarity by refractometry automatedOrdered By: Gilson Castro on 78-99-5746Asxwxig Refractometry automated (U)TurbidCleUniversity Hospitals Portage Medical CenterUrine cocaine detectionOrdered By: Gilson Castro on 67-55-4861Atkoeai Ql (U)Negative NegativeVeterans Health AdministrationUrine glucose measurement by automated test strip (mass/volume)Ordered By: Gilson Castro on 34-46-0199Zffcglw Auto test strip (U) [Mass/Vol]Normal mg/dLNormalVeterans Health AdministrationUrine hemoglobin detection by automated test stripOrdered By: Gilson Castro on 14-19-2599Aasnjiqizj Auto test strip Ql (U)NegativeNegativeVeterans Health AdministrationUrine leukocyte esterase detection by automated test stripOrdered By: Gilson Castro on 66-73-7394Dfdkmfccb esterase Auto test strip Ql (U)2+ NegativeVeterans Health AdministrationUrobilinogen Auto test strip (U) [Mass/Vol]Ordered By: Gilson Castro on 97-44-6260Pajqwvjiakwl (U) [Mass/Vol] Normal mg/dLNormalVeterans Health AdministrationpH Auto test strip (U)Ordered By: Gilson Castro on 67-70-6094hB (U)8.0 [pH]5.0-9.0[facility] AdministrationAlbumin [Mass/volume] in Serum or PlasmaOrdered By: Art Bianchi on 62-81-1995Xivescv [Mass/Vol]4.7 g/dL3.2-5.5FMercy Health West Hospital Basophils Auto (Bld) [#/Vol]Ordered By: Art Bianchi on 29-76-7747Sjblnbqen (Bld) [#/Vol]0.0 10*3/uL0.0-0.1FMercy Health West HospitalBasophils/100 WBC Auto (Bld)Ordered By: Art Bianchi on 86-84-7513Xhfuwtkwb/100 WBC (Bld)0.2 %. [facility] AdministrationBlood hemoglobin measurement (mass/volume) Ordered By: Art Bianchi on 56-89-2287Opmmtpqcaf (Bld) [Mass/Vol]13.6 g/dL 12.0-16.0[facility] AdministrationBlood leukocytes automated count (number/volume)Ordered By: Art Bianchi on 62-82-9105XWN (Bld) [#/Vol]14.0 10*3/uL4.5-13.5FMercy Health West HospitalCreatinine and Glomerular filtration rate.predicted panel (S/P/Bld)Ordered By: Art Bianchi on 05-15-2022 Creatinine [Mass/Vol]0.76 mg/dL0.44-1.03[facility] Eosinophils Auto (Bld) [#/Vol]Ordered By: Art Bianchi on 35-31-5554Nqwckwfofmx (Bld) [#/Vol]0.0 10*3/uL0.0-0.7FMercy Health West HospitalEosinophils/100 WBC Auto (Bld)Ordered By: Art Bianchi on 31-58-5682Rveczplieak/100 WBC (Bld)0.4 %.[facility] AdministrationErythrocyte distribution width Auto (RBC) [Ratio]Ordered By: Art Bianchi on 96-61-4840Nuephskodbp distribution width (RBC) [Ratio]13.7 %11.9-15.3FMercy Health West HospitalEstimated glomerular filtration rate (GFR) non- AmericanOrdered By: Art Bianchi on 05-15-2022 GFR/1.73 sq M.predicted among non-blacks MDRD (S/P/Bld) [Vol rate/Area]> 60 mL/MinVeterans Health AdministrationGlobulin Calc (S) [Mass/Vol]Ordered By: Art Bianchi on 78-19-5250Bnoucbzy (S) [Mass/Vol]3.2 g/dLVeterans Health AdministrationHematocrit Auto (Bld) [Volume fraction]Ordered By: Art Bianchi on 25-03-8968Xliiliyzib (Bld) [Volume fraction]41.0 %36.0-46.0[facility] AdministrationLaboratory - Chemistry and Chemistry - challengeOrdered By: Art Bianchi on 07-18-7312Kytdbt [Catalytic activity/Vol]24.0 U/J17-82VepoeqjwsVeterans Health AdministrationLaboratory - Hematology and Cell countsOrdered By: Art Bianchi on 52-51-6262Wfksnzizk RBC/100 WBC (Bld) [Ratio]0.0 %0-0.5FMercy Health West HospitalLymphocytes Auto (Bld) [#/Vol]Ordered By: Art Bianchi on 50-25-2681Kpcljfsvyej (Bld) [#/Vol]2.6 10*3/uL1.20-4.8[facility] AdministrationLymphocytes/100 WBC Auto (Bld)Ordered By: Art Bianchi on 05-15-2022 Lymphocytes/100 WBC (Bld)18.4 %.[facility] AdministrationMCH Auto (RBC) [Entitic mass]Ordered By: Art Bianchi on 63-34-9661SYI (RBC) [Entitic mass]28.0 pg25.0-35.0[facility] AdministrationMCHC Auto (RBC) [Mass/Vol]Ordered By: Art Bianchi on 29-47-8301TWYP (RBC) [Mass/Vol]33.3 g/dL31.0-37.0[facility] AdministrationMCV Auto (RBC) [Entitic vol]Ordered By: Art Bianchi on 25-25-5345VSV (RBC) [Entitic vol]84.1 zE24-124AlaeaulemVeterans Health Administration Monocytes Auto (Bld) [#/Vol]Ordered By: Art Bianchi on 01-79-3669Qiksgldin (Bld) [#/Vol]1.2 10*3/uL0.1-1.00[facility] AdministrationMonocytes/100 WBC Auto (Bld)Ordered By: Art Bianchi on 39-37-0722Kidgjtrys/100 WBC (Bld)8.3 %. [facility] AdministrationNeutrophils Auto (Bld) [#/Vol]Ordered By: Art iBanchi on 07-73-1558Tempmwmpyel (Bld) [#/Vol]10.2 10*3/uL1.2-7.7FMercy Health West HospitalNeutrophils/100 WBC Auto (Bld)Ordered By: Art Bianchi on 92-13-1063Uflzkkhknsf/100 WBC (Bld)72.7 %.[facility] AdministrationNo Panel InformationOrdered By: Art Bianchi on 51-02-4965Oczxazref GFR ()> 60 mL/MinVeterans Health AdministrationComment on above:GFR estimated reference range: According to KDOQI guidelines, <60 ml/min/1.73m2 is sufficient todiagnose a patient with chronic kidney disease.Pharmacy Creatinine Clearance (Eeez665.34[facility] AdministrationPlatelet mean volume Auto (Bld) [Entitic vol]Ordered By: Art Bianchi on 90-18-6165Lrwyzcks mean volume (Bld) [Entitic vol]8.8 fL6.3-10.7FMercy Health West HospitalPlatelets Auto (Bld) [#/Vol]Ordered By: Art Bianchi on 87-83-4485Ydpugqlov (Bld) [#/Vol]315 10*3/xO805-045KvlsnizziVeterans Health AdministrationProtein [Mass/volume] in Serum or PlasmaOrdered By: Art Bianchi on 60-04-2417Eubhuuq [Mass/Vol]7.9 g/dL6.1-7.9 [facility] AdministrationRBC Auto (Bld) [#/Vol]Ordered By: Art Bianchi on 55-13-7950JPP (Bld) [#/Vol]4.88 10*6/uL4.10-5.10[facility] Centererum or plasma alanine aminotransferase measurement without P-5'-P (enzymatic activiOrdered By: Art Biancih on 24-56-1310INQ No additional P-5'-P [Catalytic activity/Vol]25 U/H96-44IeelmhaxsUC Medical Centererum or plasma albumin/globulin mass ratioOrdered By: Art Bianchi on 05-15-2022 Albumin/Globulin [Mass ratio]1.5 {ratio}[facility] Centererum or plasma alkaline phosphatase measurement (enzymatic activity/volume)Ordered By: Art Bianchi on 01-24-6112DFM [Catalytic activity/Vol]66 U/G18-63HycfslenaUC Medical Centererum or plasma aspartate aminotransferase measurement (enzymatic activity/volume)Ordered By: Art Bianchi on 88-51-8643VWY [Catalytic activity/Vol]33 U/N39-33XgcrropczUC Medical Centererum or plasma calcium measurement (mass/volume)Ordered By: Art Bianchi on 44-35-2749Fnlbyqn [Mass/Vol] 10.1 mg/dL8.2-10.2FOhioHealth Marion General Hospitalerum or plasma chloride measurement (moles/volume)Ordered By: Art Bianchi on 48-69-5760Rcdpocsh [Moles/Vol]94 mmol/G73-934HoextkzitUC Medical Centererum or plasma glucose measurement (mass/volume)Ordered By: Art Bianchi on 86-57-7468Gdllzga [Mass/Vol]102 mg/xN84-420VdruywytcVeterans Health AdministrationComment on above:ADA recommended reference range Random Glucose Reference Range is dependent on time and content of last meal. Glucose of more than 200 mg/dL in a nonstressed, ambulatory subject supports the diagnosis of Diabetes Mellitus.Serum or plasma potassium measurement (moles/volume)Ordered By: Art Bianchi on 38-62-9878Vzapgchtf [Moles/Vol]3.1 mmol/L3.5-5.1FOhioHealth Marion General Hospitalerum or plasma sodium measurement (moles/volume)Ordered By: Art Bianchi on 21-96-1039Umyody [Moles/Vol]135 mmol/L 136-146UC [facility] Centererum or plasma total bilirubin measurement (mass/volume)Ordered By: Art Bianchi on 45-55-0738Koyjfkcie [Mass/Vol]1.2 mg/dL0.3-1.2FOhioHealth Marion General Hospitalerum or plasma total carbon dioxide measurement (moles/volume)Ordered By: Art Bianchi on 05-15-2022 CO2 [Moles/Vol]22.2 mmol/L22.0-30.0[facility] Centererum or plasma urea nitrogen measurement (mass/volume)Ordered By: Art Bianchi on 14-19-8986Fqui nitrogen [Mass/Vol]23 mg/dL9-23[facility] Albumin [Mass/volume] in Serum or PlasmaOrdered By: Art Bianchi on 05-13-2022 Albumin [Mass/Vol]4.3 g/dL3.2-5.5FMercy Health West HospitalAutomated erythrocytes count in urine sediment (number/area)Ordered By: Art Bianchi on 78-64-8605QUQ Auto (Urine sed) [#/Area]1-2 [HPF]0-4FMercy Health West HospitalAutomated leukocytes count in urine sediment (number/area)Ordered By: Art Bianchi on 43-48-0597WVG Auto (Urine sed) [#/Area]1-2 [HPF]0-4FMercy Health West HospitalBasophils Auto (Bld) [#/Vol]Ordered By: Art Bianchi on 12-67-6262Fkcvdvzfs (Bld) [#/Vol]0.1 10*3/uL0.0-0.1FMercy Health West HospitalBasophils/100 WBC Auto (Bld)Ordered By: Art Bianchi on 05-13-2022 Basophils/100 WBC (Bld)1.0 %.[facility] AdministrationBilirubin Test strip Ql (U)Ordered By: Art Bianchi on 72-78-7440Xguvhbsgd Ql (U)Negative NegativeVeterans Health AdministrationBlood hemoglobin measurement (mass/volume)Ordered By: Art Bianchi on 88-08-6333Rzfrqdobrq (Bld) [Mass/Vol] 13.7 g/dL12.0-16.0[facility] AdministrationBlood leukocytes automated count (number/volume)Ordered By: Art Bianchi on 20-70-4617GKE (Bld) [#/Vol]10.4 10*3/uL4.5-13.5FMercy Health West HospitalColor Auto (U)Ordered By: Art Bianchi on 01-56-9455Vfvvd (U)YellowYellowVeterans Health Administration Creatinine and Glomerular filtration rate.predicted panel (S/P/Bld)Ordered By: Art Biancih on 35-18-4739Jjgwjxttkd [Mass/Vol]0.76 mg/dL0.44-1.03[facility] AdministrationEosinophils Auto (Bld) [#/Vol]Ordered By: Art Bianchi on 48-41-6716Uvlcucsayfz (Bld) [#/Vol]0.5 10*3/uL0.0-0.7FMercy Health West HospitalEosinophils/100 WBC Auto (Bld)Ordered By: Art Bianchi on 05-13-2022 Eosinophils/100 WBC (Bld)4.6 %.[facility] AdministrationErythrocyte distribution width Auto (RBC) [Ratio]Ordered By: Art Bianchi on 05-13-2022 Erythrocyte distribution width (RBC) [Ratio]13.6 %11.9-15.3FMercy Health West HospitalEstimated glomerular filtration rate (GFR) non- Ordered By: Art Bianchi on 20-89-3068FNU/1.73 sq M.predicted among non-blacks MDRD (S/P/Bld) [Vol rate/Area]> 60 mL/MinVeterans Health Administration Globulin Calc (S) [Mass/Vol]Ordered By: Art Bianchi on 69-85-7528Rlakbnmb (S) [Mass/Vol]2.7 g/dLVeterans Health AdministrationHCG ( test) IA.rapid Ql (U)Ordered By: Art Bianchi on 95-48-6034RMA ( test) Ql (U)Negative [facility] AdministrationHematocrit Auto (Bld) [Volume fraction]Ordered By: Art Bianchi on 26-44-7959Ysoffbdpoi (Bld) [Volume fraction]40.5 %36.0-46.0 [facility] AdministrationKetst. [facility] Auto test strip (U) [Mass/Vol]Ordered By: Art Bianchi on 98-35-0014Yuvbvxm (U) [Mass/Vol]TraceNegativeVeterans Health AdministrationLaboratory - Hematology and Cell countsOrdered By: Art Bianchi on 94-32-5932Ufispfbnm RBC/100 WBC (Bld) [Ratio]0.0 %0-0.5FMercy Health West HospitalLaboratory - UrinalysisOrdered By: Art Bianchi on 85-53-6583Swfofst casts LM Ql (Urine sed)0-8 [LPF]0-8[facility] Health AdministrationLymphocytes Auto (Bld) [#/Vol]Ordered By: Art Bianchi on 05-13-2022 Lymphocytes (Bld) [#/Vol]1.4 10*3/uL1.20-4.8[facility] Lymphocytes/100 WBC Auto (Bld)Ordered By: Art Bianchi on 05-13-2022 Lymphocytes/100 WBC (Bld)13.1 %.[facility] Auto (RBC) [Entitic mass]Ordered By: Art Bianchi on 93-69-5760TYR (RBC) [Entitic mass]28.6 pg25.0-35.0[facility] Health AdministrationMCHC Auto (RBC) [Mass/Vol]Ordered By: Art Bianchi on 20-24-7634SNPA (RBC) [Mass/Vol]33.7 g/dL31.0-37.0[facility] AdministrationMCV Auto (RBC) [Entitic vol]Ordered By: Art Bianchi on 81-97-3100VPO (RBC) [Entitic vol]84.7 fT52-373WshjdawwnVeterans Health Administration Monocytes Auto (Bld) [#/Vol]Ordered By: Art Bianchi on 00-25-9056Tttkqnijk (Bld) [#/Vol]0.4 10*3/uL0.1-1.00[facility] AdministrationMonocytes/100 WBC Auto (Bld)Ordered By: Art Bianchi on 73-97-1231Eqanertsz/100 WBC (Bld)4.2 %. [facility] Health AdministrationNeutrophils Auto (Bld) [#/Vol]Ordered By: Art Bianchi on 76-70-5088Khwjhxwpxrt (Bld) [#/Vol]8.0 10*3/uL1.2-7.7FMercy Health West HospitalNeutrophils/100 WBC Auto (Bld)Ordered By: Art Bianchi on 29-08-8480Twdelbaeqhd/100 WBC (Bld)77.1 %.[facility] Nitrite Test strip Ql (U)Ordered By: Art Bianchi on 61-91-7413Uvybzpf Ql (U) NegativeNegLima City HospitalNo Panel InformationOrdered By: Art Bianchi on 47-92-3673Ystinkdzp GFR ()> 60 mL/MinVeterans Health AdministrationComment on above:GFR estimated reference range: According to KDOQI guidelines, <60 ml/min/1.73m2 is sufficient todiagnose a patient with chronic kidney disease.Pharmacy Creatinine Clearance (Hhrb186.80[facility] AdministrationPlatelet mean volume Auto (Bld) [Entitic vol]Ordered By: Art Bianchi on 59-63-7103Wbyfhpkc mean volume (Bld) [Entitic vol]8.6 fL6.3-10.7 [facility] AdministrationPlatelets Auto (Bld) [#/Vol]Ordered By: Art Bianchi on 51-66-6397Snhqazpvg (Bld) [#/Vol]264 10*3/wR576-058MphhetbclVeterans Health AdministrationProtein Auto test strip (U) [Mass/Vol]Ordered By: Art Bianchi on 62-36-1181Qddnnpz (U) [Mass/Vol]30 mg/dLNegativeVeterans Health AdministrationProtein [Mass/volume] in Serum or PlasmaOrdered By: Art Bianchi on 01-21-4380Iaawxbp [Mass/Vol]7.0 g/dL6.1-7.9[facility] AdministrationRBC Auto (Bld) [#/Vol]Ordered By: Art Bianchi on 78-33-7465KTO (Bld) [#/Vol]4.78 10*6/uL4.10-5.10[facility] Medical Centererum or plasma alanine aminotransferase measurement without P-5'-P (enzymatic activiOrdered By: Art Bianchi on 43-92-6010RPN No additional P-5'-P [Catalytic activity/Vol]19 U/L10-60 [facility] Centererum or plasma albumin/globulin mass ratio Ordered By: Art Bianchi on 67-49-4320Tpjtvnm/Globulin [Mass ratio]1.6 {ratio} [facility] Centererum or plasma alkaline phosphatase measurement (enzymatic activity/volume)Ordered By: Art Bianchi on 08-22-6465XXO [Catalytic activity/Vol]69 U/Q47-83EibormshyUC Medical Centererum or plasma aspartate aminotransferase measurement (enzymatic activity/volume)Ordered By: Art Bianchi on 13-60-5112MCM [Catalytic activity/Vol]19 U/D05-94WfzeniimfUC Medical Centererum or plasma calcium measurement (mass/volume)Ordered By: Art Bianchi on 22-95-3308Adznvud [Mass/Vol]9.9 mg/dL8.2-10.2FOhioHealth Marion General Hospitalerum or plasma chloride measurement (moles/volume) Ordered By: Art Bianchi on 20-49-2761Mvhfyoet [Moles/Vol]107 mmol/L95-114 [facility] Centererum or plasma glucose measurement (mass/volume)Ordered By: Art Bianchi on 95-74-4935Jnrdcpk [Mass/Vol]140 mg/dL 70-100V[facility] Health AdministrationComment on above:ADA recommended reference range Random Glucose Reference Range is dependent on time and content of last meal. Glucose of more than 200 mg/dL in a nonstressed, ambulatory subject supports the diagnosis of Diabetes Mellitus.Serum or plasma potassium measurement (moles/volume)Ordered By: Art Bianchi on 62-34-0190Fblherwdy [Moles/Vol]3.7 mmol/L3.5-5.1FOhioHealth Marion General Hospitalerum or plasma sodium measurement (moles/volume)Ordered By: Art Bianchi on 71-29-1482Vsecer [Moles/Vol]138 mmol/L 136-146[facility] Medical Centererum or plasma total bilirubin measurement (mass/volume)Ordered By: Art Bianchi on 94-48-5246Jgrttiwqx [Mass/Vol]0.5 mg/dL0.3-1.2FOhioHealth Marion General Hospitalerum or plasma total carbon dioxide measurement (moles/volume)Ordered By: Art Bianchi on 05-13-2022 CO2 [Moles/Vol]19.0 mmol/L22.0-30.0[facility] Centererum or plasma urea nitrogen measurement (mass/volume)Ordered By: Art Bianchi on 05-14-7437Vjnw nitrogen [Mass/Vol]11 mg/dL9-23[facility] Specific gravity Auto test strip (U) [Rel density]Ordered By: Art Bianchi on 54-91-6369Yljrzqyx gravity (U) [Rel density]1.0181.001-1.030UC Medical Centerquamous epithelial cells detection in urine sediment by light microscopyOrdered By: Art Bianchi on 29-24-1079Mwkxzaktfe cells.squamous LM Ql (Urine sed)20-30 [HPF][address] [place], [place] [address]Urine bacteria detection by automated methodOrdered By: Art Bianchi on 59-45-4788Mfthnfdz Auto Ql (U)2+None SeenVeterans Health AdministrationUrine clarity by refractometry automatedOrdered By: Art Bianchi on 95-73-0355Oyzgeql Refractometry automated (U)CloudyClearFMercy Health West HospitalUrine glucose measurement by automated test strip (mass/volume)Ordered By: Art Bianchi on 83-38-1324Pfkxhnd Auto test strip (U) [Mass/Vol]Normal mg/dLNormalVeterans Health AdministrationUrine hemoglobin detection by automated test stripOrdered By: Art Bianchi on 71-08-5477Bbmeoplxkx Auto test strip Ql (U)NegativeNegativeVeterans Health AdministrationUrine leukocyte esterase detection by automated test stripOrdered By: Art Bianchi on 97-91-7807Qcugmobfh esterase Auto test strip Ql (U)Negative NegativeVeterans Health AdministrationUrobilinogen Auto test strip (U) [Mass/Vol]Ordered By: Art Bianchi on 61-37-1664Pumoqbnwljmb (U) [Mass/Vol]Normal mg/dLNormalVeterans Health AdministrationpH Auto test strip (U)Ordered By: Art Bianchi on 05-10-5687cV (U)[pH]5.0-9.0V[facility] Health AdministrationCNPN on 07-21-1840HBCJOtumxdnej (OTOLMN) PILI PARIKH ([id number]) 3 F Date Time Provider Department 10/10/21 ROLANDO WOOTEN OTOLMN During your visit today, we recorded the following information about you: Rolando Wooten MD 10/10/2021 12:44 PM Signed Spoke with patient. Monospot positive. Waiting on CBC with diff - wbc 10. 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 Ordered further labs as somewhat atypical [...] [B27.80] Order(s):HEPATIC FUNCTION PNL [SQHFP] Order #: [id number] FUTURE HIV 1 2 COMBO(AG/AB),WITH REFLEX TO DIFFERENTIATION [SQHIV12] Order #: [id number] FUTURE CMV IGG/IGM TITER [2389112] Order #: [id number] FUTURE LISSA-HENSON VCA IGM [SQEBVM] Order #: [id number] FUTURE EBV EA AB IGG [[id number]] Order #: [id number] FUTURE LISSA-HENSON VCA IGG [SQEBVG] Order #: [id number] FUTURE CMV IGG/IGM TITER [[id number]] Order #: [id number] EBV EA AB IGG [[id number]] Order #: [id number] Prescriptions as of 10/27/2021 - HYDROcodone-acetaminophen (HYCET) [...] 10/09/2021 Encounter Status:Closed by ROLANDO WOOTEN on 10/10/21NoBellevue HospitalAFB Cult and Stainon 88-16-7350KJR Cult and StainSp. Request/Comment: - Specimen received in sterile container. Smear Result - No acid fast bacilli seen by fluorochrome stain Culture Result - No Acid Fast Bacilli isolated after 46 daysNoBellevue HospitalComment on above:Performed By: #### AFC #### [facility] [address] [place] [address] Agostnsa Cultureon 19-37-0370Lorrkjxb CultureSp. Request/Comment: - Specimen received in sterile container. Culture Result - Few Mixed anaerobic jori --> ABNORMAL ALERT No Bacteroides fragilis group isolated. No Clostridium perfringens isolatedCritically abnormal [facility] HospitalComcorewell health butterworth hospital on above:Performed By: #### ANACUL #### [facility] [address] [place], [place] [address] Hbdwb Metabolic Panlon 86-45-8964Fvplr gap [Moles/Vol]14 mmol/L Normal9-18[facility] on above:Result Comment: (NOTE) Reference ranges for this patient's age group have not been established. These reference ranges reflect verified or established ranges for the adult population. Interpret these ranges with caution using the clinical context and additional reference resources.Performed By: #### CBCDIF, BMP, MONOLX #### [place] [address] [place] [address] Vrgxxdy [Mass/Vol]9.4 mg/dLNormal8.4-10.2CSCCI Hospital [facility] Comment on above:Performed By: #### CBCDIF, BMP, MONOLX #### [place] [address] [place] [id number] Tweudhxs [Moles/Vol]99 mmol/MJzswqx62-186FgiyizlndOhiohealth Grady Memorial Hospital Comment on above:Result Comment: (NOTE) Reference ranges for this patient's age group have not been established. These reference ranges reflect verified or established ranges for the adult population. Interpret these ranges with caution using the clinical context and additional reference resources.Performed By: #### CBCDIF, BMP, MONOLX #### [facility] [place], [place] [address] TY7 [Moles/Vol]23 mmol/CWsmnzl82-59EiueejodhProvidence Hospital on above:Result Comment: (NOTE) Reference ranges for this patient's age group have not been established. These reference ranges reflect verified or established ranges for the adult population. Interpret these ranges with caution using the clinical context and additional reference resources.Performed By: #### CBCDIF, BMP, MONOLX #### [facility] [address] [place], [place] [address] Vqveqierbl [Mass/Vol]0.64 mg/dLNormal0.58-0.96Ohio[facility] Memorial HospitalComment on above:Result Comment: Reference ranges for this patient's age group have not been established. These reference ranges reflect verified or established ranges for the adult population. Interpret these rangeswith caution using the clinical context and additional reference resources.Performed By: #### POPEYEFCHRISTEL, MONOLX #### [facility] [address] [place], [place] [address] jHLU-Ped. Factor0.65NormalCKettering Health Behavioral Medical Center on above:Result Comment: eGFR (Estimated [...] interpretation.Performed By: #### CHRISTEL BRIGHT, MONOLX #### [facility] [address] [place], [place] [address] Fbfofxr [Mass/Vol]89 mg/bSYkcdjr25-57AscmkpokjOhiohealth Grady Memorial Hospital Comment on above:Result Comment: Reference ranges for this patient's age group have not been established. These reference ranges reflect verified or established ranges for the adult population. Interpret these rangeswith caution using the clinical context and additional reference resources. The [place] Diabetes Association (ADA) provides guidance for cutoff [...] Standards of Medical Care in Diabetes 2016, [place] [employer]. Diabetes Care. 2016.39(Suppl 1).Performed By: #### CBCSAULFCHRISTEL, MONOLX #### [facility] [address] [place], [place] [address] Zovfknhcb [Moles/Vol]4.4 mmol/LNormal3.7-5.1CKettering Health Behavioral Medical Center on above:Result Comment: (NOTE) Reference ranges for this patient's age group have not been established. These reference ranges reflect verified or established ranges for the adult population. Interpret these ranges with caution using the clinical context and additional reference resources.Performed By: #### CBCDIFCHRISTEL, MONOLX #### [facility] [place], [place] [address] Jpjavp [Moles/Vol]136 mmol/IUvlyfn075-733OjerxjizmOhiohealth Grady Memorial Hospital Comment on above:Result Comment: (NOTE) Reference ranges for this patient's age group have not been established. These reference ranges reflect verified or established ranges for the adult population. Interpret these ranges with caution using the clinical context and additional reference resources.Performed By: #### POPEYEFCHRISTEL, MONOLX #### [facility] [address] [place], [place] [address] Pcwc nitrogen [Mass/Vol]8 mg/dLNormal5-18[facility] Comment on above:Performed By: #### CBCDIF, BMP, MONOLX #### [facility] [place], [place] [address] VGD and Differentialon 60-79-3623Zyw Baso0.11 k/uLHigh<0.11CKettering Health Behavioral Medical Center on above:Performed By: #### CBCDIF, BMP, MONOLX #### [facility] [address] [place], [place] [address] Dva Lym4.27 K/uLHigh1.00-4.00[facility] on above:Performed By: #### CBCDIF, BMP, MONOLX #### [place] [address] [place] [address] Toa Mono1.10 k/uLHigh<0.87[facility] on above:Performed By: #### CBCDIF, BMP, MONOLX #### [place] [address] Kzg Neut5.37 k/uLNormal1.45-7.50[facility] on above:Performed By: #### CBCDIF, BMP, MONOLX #### [place] [address] Jafpxbgeq/100 WBC (Bld)1 %NormalProvidence Hospital on above:Performed By: #### CBCDIF, BMP, MONOLX #### [place] [phone] CommentsSEE COMMENTNormalCKettering Health Behavioral Medical Center on above:Result Comment: Platelet estimate adequatePerformed By: #### CBCDIF, BMP, MONOLX #### [place] [address] Lboifecjmie (Bld) [#/Vol]0.11 10*3/uLNormal<0.46[facility] on above:Performed By: #### CBCDIF, BMP, MONOLX #### [place] [address] Qzpkopokwnr/100 WBC (Bld)1 %NormalProvidence Hospital on above:Performed By: #### CBCDIF, BMP, MONOLX #### [place] [phone] distribution width (RBC) [Ratio]13.4 %Fvhebs73.5-15.0 [facility] on above:Performed By: #### CBCDIF, BMP, MONOLX #### [facility] [address] [place], [place] [address] Ynnmglefxm (Bld) [Volume fraction]39.8 %Enkisr02.0-46.0[facility] on above:Performed By: #### CBCDIF, BMP, MONOLX #### [place] [address] [place], [place] [address] Gkmjpsedzo (Bld) [Mass/Vol]12.5 g/iIMvpspp58.5-15.5CKettering Health Behavioral Medical Center on above:Performed By: #### CBCDIF, BMP, MONOLX #### [place] [address] Fwzpkbsmskv/100 WBC (Bld)39 %NormalProvidence Hospital on above:Performed By: #### CBCDIF, BMP, MONOLX #### [address] [address] DWK16.4 vCUywhfi71.0-34.0[facility] on above: Performed By: #### CBCDIF, BMP, MONOLX #### [address] [address] KOHS (RBC) [Mass/Vol]31.4 g/oPModcej41.5-36.0[facility] on above:Performed By: #### CBCDIF, BMP, MONOLX #### [place] [address] [place], [place] [address] KII (RBC) [Entitic vol]87.3 eANkmaok60.0-100.0[facility] on above:Performed By: #### CBCDIF, BMP, MONOLX #### [place] [address] [place], [place] [address] Yhfevetyw/100 WBC (Bld)10 %NormalProvidence Hospital on above:Performed By: #### CBCDIF, BMP, MONOLX #### [place] [address] [place] [address] Hodkgrbpoad/100 WBC (Bld)49 %NormalProvidence Hospital on above:Performed By: #### CBCDIF, BMP, MONOLX #### [place] [address] Gmptgliw mean volume (Bld) [Entitic vol]10.3 fLNormal9.0-12.7 [facility] on above:Performed By: #### CBCDIF, BMP, MONOLX #### [place] [address] Ynypozxme (Bld) [#/Vol]218 10*3/xAMvuqyf340-342VsglvycaiProvidence Hospital on above:Performed By: #### CBCDIF, BMP, MONOLX #### [place] [address] FTW (Bld) [#/Vol]4.56 10*6/uLNormal3.90-5.20[facility] on above:Performed By: #### CBCDIF, BMP, MONOLX #### [place] [address] Qon Cell MorphSEE COMMENTNormalCKettering Health Behavioral Medical Center on above:Result Comment: Slight Polychromasia Few OvalocytesPerformed By: #### CBCDIF, BMP, MONOLX #### [place] [address] QVE (Bld) [#/Vol]10.95 10*3/uLNormal3.70-11.00[facility] on above:Performed By: #### CBCDIF, BMP, MONOLX #### [address] [place], [place] [address] UOLZcj 02-23-2301YTCWOyiwvk Visit (OTOLMN) PILI PARIKH ([id number]) 3 F Date Time Provider Department 10/09/21 [...] The nasal passageways a (more content not included)...NormalOhiohealth Grady Memorial HospitalFungal Cultureon 93-75-6633Oviuap CultureSp. Request/Comment: - Specimen received in sterile container. Culture Result - No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 12/16/2017 1:32:35 PM Atenolol 25 MG Oral [...] 04/14/2018 10:03:53 AM Vitals Vital Signs Recorded: 63Dtr4530 10:98ABRacntrul795Xvelcgrly78Kjavgw5 ft 2.40 zbYqplgt633 lb 14.53 ozBMI Iuoetslxue96.18BSA Calculated1.94BMI Walrbncjdy60 %2-20 Stature Hjssgchraj59 %2-20 Weight Qoghwqviwv21 % Physical ExamToday's exam finds a cooperative [...] AND Treat Status:Hold For- Scheduling Requested for: 83Ocs0506 Ordered;For: Snoring; Ordered By: Mere Simpson Performed: [...] or Ashley Vortex withmouthpiece;Therapy: 23Sep2014 to (Last Rx:59Vrc8772) Requested for: 24Mar2015 OrderedAfrin 12 Hour 0.05 [...] Oral Tablet; TAKE 1 TABLET AT BEDTIME;Therapy: 60Xnq9376 to (Evaluate:37Uia7888) Requested for: 18Apr2018; LastRx:56Tas3086 OrderedAtenolol 25 MG Oral Tablet; TAKE 1 TABLET DAILY;Therapy: (Recorded:20Oct2015) to RecordedCyproheptadine HCl - 4 MG Oral Tablet; TAKE 1 TABLET EVERY 8 HOURS DAILY Requested for: 02Sep2017; Last Rx:02Sep2017 OrderedFludrocortisone Acetate 0.1 MG Oral Tablet; take one tablet twice a day;Therapy: (Recorded:20Oct2015) to RecordedGabapentin 300 MG Oral Capsule; TAKE 1 CAPSULE 3 TIMES DAILY;Therapy: 49Ufb3145bj (Evaluate:74Ivs5943) Requested for: 18Feb2018; LastRx:18Feb2018 OrderedHyoscyamine Sulfate 0.125MG Oral Tablet Disintegrating; 2 tablets orally every 8 hours Requested for: 28Sep2017; Last Rx:28Sep2017 OrderedLansoprazole 30 MG Oral Capsule Delayed Release; TAKE 1 CAPSULE EVERYMORNING DAILY;Therapy: 14Apr2018 to (Evaluate:04Yul4275) Requested for: 18Apr2018; LastRx:18Apr2018 OrderedMagnesium Oxide 400 MG Oral Tablet; 1 TABLET ORALLY ONCE A DAY;Therapy: (Recorded:09Cze0659) to RecordedOndansetron HCl - 8 MG Oral Tablet; TAKE 1 TABLET 3 times daily PRN vomiting;Therapy: 16Dec2017 to (Evaluate:34Oai4499) Requested for: 18Apr2018; LastRx:18Apr2018 OrderedPhenergan 25 MG SUPP; INSERT 1 SUPPOSITORY RECTALLY EVERY 12 HOURS ASNEEDED FOR NAUSEA AND VOMITING;Therapy: 03Nov2015 to (Last Rx:16Dec2017) Requested for: 16Dec2017 OrderedPredniSONE 20 MG Oral Tablet; Take 3 tablets once daily for 5-7 days. To be used in thesetting of a severe asthma flare-up. Please call the office prior to starting;Therapy: 23Sep2014 to (Last Rx:00Dsj2760) Requested for: 14Apr2018 OrderedProAir HFA 108 (90 Base) MCG/ACT Inhalation Aerosol Solution; Inhale 2-4 puffs every4-6 hours as needed for cough, wheezingor shortness of breath and prior to exercise;Therapy: 23Sep2014 to (Last Rx:90Shd1282) Requested for: 24Mar2015 OrderedPromethazine HCl - 25 MG Oral Tablet; 1 tablet orally every 12 hours as needed fornausea/vomiting Requested for: 16Dec2017; Last Rx:16Dec2017 OrderedQvar 80 MCG/ACT Inhalation Aerosol Solution; INHALE TWO PUFFS BY MOUTH TWICEA DAY WITH A SPACER;Therapy: 23Sep2014 to (Last Rx:95Pou5054) Requested for: 27Apr2016 OrderedTri-Sprintec 0.18/0.215/0.25 MG-35 MCG Oral Tablet;Therapy: 23Mar2018 to RecordedUnspecified Medication; Vitamin B2-400 Oral Capsule1 capsule orally once a day;Therapy: (Recorded:25Vcb0351) to RecordedVitamin D 1000 UNIT Oral Tablet; TAKE 1 TABLET DAILY;Therapy: 14Apr2018 to (Evaluate:90Qpo0612) Requested for: 71Abi6447; LastRx:56Vxk6608 Ordered Signatures Electronically signed by : Mere Simpson APRN-ASCENSION ST. LUKE'S SLEEP CENTERRadha; Jun 05 2018 10:46AM EST (Author)NormalUH TouchworksDischarge Summaryon 98-71-5756Iqunnjuio SummarySend Summary:Discharge Summary Providers:Provider Role Provider Name? Referring Dali Mcintosh? Attending Adeola Colon? Primary Zac Daniel Recipients: Adeola Colon MD Baez-Socorro, MD Fredy Marley Natalie, MD - [phone] [[phone]]Dali Mcintosh MD - [id number] [Preferred]Discharge:Summary:Admission Date: .09-Aug-2017 21:44:00Discharge Date: 06-Yuy-2086Wamsxgypw Physician at Discharge: Adeola Colon NAdmission Reason: vomiting, hematemesisFinal Discharge Diagnoses: Functional abdominal painProcedures: null Aug 11, 2017Condition at Discharge: SatisfactoryDisposition at Discharge: .HomeVital Signs: T P R BP MxW1Qsfcg 36.6 70 18 126/84 98%Date/Time 08/24 8:58 [...] months, but worse recently. She was admitted [facility] last month for the vomiting. She [...] Saturday September 02, 2017 at3:30 pm. Location: [place] [address] Kskegu-Up Appointment 02: Physician/Dept/Service: Neurology: Caty Simpson Call to Schedule in: 1st available Scheduled Date/Time: 31-Aug-2017 14:00 Location: [address] [place] [address] Fhvenj-Up Appointment 03: Physician/Dept/Service: ENT (ear, nose, and [...] AttestationLast Updated: 24-Aug-2017 23:59 by Adeola Colon ()[facility] HospitalPD ABDOMEN, SINGLE VIEWon 90-79-5720WK ABDOMEN, SINGLE VIEWMRN: [id number] Name: PILI PARIKH STUDY:PD ABDOMEN, SINGLE VIEW; 08/21/2017 12:35 pm INDICATION:Signs/Symptoms: NG placement. COMPARISON:None. ORDERING CLINICIAN:Kelle BOATENG FINDINGS:Tip of NG overlies the gastric body. There is a nonobstructive bowel gas pattern. Visualized soft tissues and osseous structures are unremarkable. The lung bases are clear. IMPRESSION:Tip of NG overlies the gastric body.Electronically signed by: COREY JOHNS, [facility] Healthcare ClevelandNR MRI BRAIN WOon [id number] MRI BRAIN WOMRN: [id number] Name: PILI PARIKH STUDY:NR MRI BRAIN WO; [...] Chiari malformation. The study was interpreted at [facility].Electronically signed by: Benita HARDYRegional Medical Center Surgical Pathology Departmenton [id number] Surgical Pathology DepartmentNamPILI Murphy Pathologist: SANAZ MARIate [...] specimen is submitted in toto in one cassette.MXWmxw/08/11/2017NoUCHealth Highlands Ranch HospitalComment on above:Performed By: #### T4FRE ####[facility], [place] [address]ETZSVOHfs 08-10-2017 Amylase enzyme act/vol19 U/VTjrvqg27 - 76[facility]ades Medical CenterComment on above:Performed By: #### VTDOH ####[place] [id number], [place] [address]K-BXRLQISZ PROTEINon 23-43-5192HRH mass conc0.34 mg/dL NormalPalisades Medical CenterComment on above:Result Comment: REF VALUE< 1.00Performed By: #### KACIH ####[place] [address], [place] [address]NYE AND DIFFERENTIALon 08-10-2017% AUTOMATED IMMATURE GRAN0.3 %Normal0.0 - 1.0Pal[facility]ades Medical CenterComment on above:Result Comment: Percent differential counts (%) should be interpreted in the context of the absolute cell counts (cells/L).Performed By: #### KACIH ####[place] [id number] [address]% JDALPREOFX41.9 %Kipnhx12.0 - 69.0[facility] CenterComment on above:Performed By: #### VTDOH ####[facility] [place], [place] [address]Mnnvrxaoz/100 WBC Auto (Bld)0.4 %Normal0.0 - 1.0[facility] CenterComment on above: Performed By: #### MERCEDDOH ####[place] [address], [place] [address]Gjtbjdufy/100 WBC Auto (Bld)0.03 x10E9/LNormal0.00 - 0.10 [facility] CenterComment on above:Performed By: #### VTDOH ####[facility], [place] [address]Xyndrtktrms Auto #/vol (Bld)0.29 10*3/uLNormal0.00 - 0.70[facility] CenterComment on above:Performed By: #### VTDOH ####[facility], [place] [address]Ajbziqkcfum/100 WBC Auto (Bld)4.2 %Normal0.0 - 5.0[facility] CenterComment on above:Performed By: #### VTDOH ####[facility], [place] [address]Zwbfyivllmy distribution width Auto Ratio (RBC)14.1 %Fftjuq83.5 - 14.5[facility] CenterComment on above:Performed By: #### VTDOH ####[facility], [place] [address]Fkfvsgvjts Auto Volume Fraction (Bld) 35.4 %Low36.0 - 46.0[facility] CenterComment on above:Performed By: #### VTDOH ####[facility] [place] [address] Hemoglobin mass conc (Bld)11.0 g/dLLow12.0 - 16.0[facility] Comment on above:Performed By: #### MERCEDDOH ####[facility], [place] [address]Rgkkqmurwja Auto #/vol (Bld)2.33 10*3/uLNormal1.80 - 4.80[facility] CenterComment on above:Performed By: #### VTDOH ####[facility] [place] [address] Lymphocytes/100 WBC Auto (Bld)33.8 %Skkgsj81.0 - 48.0[facility] Comment on above:Performed By: #### VTDOH ####[facility], [place] [address]LIBY Auto mass conc (RBC)31.1 g/uQUnarzz79.0 - 37.0[facility] CenterComment on above:Performed By: #### VTDOH ####[facility], [place] [address]DUU Auto Entitic volume (RBC)80 nVWxadfh49 - 102[facility] CenterComment on above: Performed By: #### VTDOH ####[facility], [place] [address]Ctqqlxkgq Auto #/vol (Bld)0.58 10*3/uLNormal0.10 - 1.00[facility] CenterComment on above:Performed By: #### KACIH ####[facility], [place] [address]Luqqxdswc/100 WBC Auto (Bld)8.4 %Normal3.0 - 9.0[facility] CenterComment on above: Performed By: #### MERCEDDOH ####[facility], [place] [address]Ptnkxyedbdo Auto #/vol (Bld)3.65 10*3/uLNormal1.20 - 7.70 [facility] CenterComment on above:Performed By: #### KACIH ####[place] [address], [place] [address]Afcffbwzn RBC/100 WBC Ratio (Bld)0.0 /100 WBCNormal0.0-0.0[facility] CenterComment on above:Performed By: #### MERCEDDOH ####[facility], [place] [address]Njqhmxqjl Auto #/vol (Bld)256 10*3/dCDcakqi839 - 400[facility] CenterComment on above:Performed By: #### MERCEDDOH ####[facility], [place] [address]ITB Auto #/vol (Bld) 4.40 x10E12/LNormal4.10 - 5.20[facility] CenterComment on above: Performed By: #### MERCEDDOH ####[facility], [place] [address]SCY Auto #/vol (Bld)6.9 10*3/uLNormal4.5 - 13.5[facility] CenterComment on above:Performed By: #### VTDOH ####[facility], [place] [address]TPIZTA DISEASE SEROLOGY PANELon 14-73-0149TUFGIMU ABS, WXG6Pqagzc4 - 14[facility] CenterComment on above:Result Comment: False negative Deamidated Gliadin Peptide Antibody, IgA results can occur in patients already adhering to a gluten-free diet or patients with IgA deficiency. Tissue Transglutaminase Antibody, IgA is the preferred test for screening patients with suspected Celiac Disease. Performed By: #### T4FRE ####[facility], [place] [address]WANDDFE ABS, IGG<5Ohixjh6 - 14[facility] Comment on above:Result Comment: False negative Deamidated Gliadin Peptide Antibody, IgG results can occur in patients already adhering to a gluten-free diet. Tissue Transglutaminase Antibody, IgA is the preferred test for screening patients with suspected Celiac Disease.Performed By: #### T4FRE ####[facility], [place] [address]NQQ AB,IGA<7Qmlukg0 - 14[facility] CenterComment on above:Result Comment: Celiac disease is unlikely. False negative Tissue Transglutaminase Antibody, IgA results can occur in approximately 10% of patients with celiac disease, patients already adhering to agluten-free diet, or patients with IgA deficiency.Performed By: #### T4FRE ####[facility], [place] [address]JRJ AB,IGG<1 Normal0 - 14[facility] Medical CenterComment on above:Result Comment: False negative Tissue Transglutaminase Antibody, IgG results can occur in patients a lready adhering to a gluten-free diet. Tissue Transglutaminase Antibody, IgA is the preferred test for screening patients with suspected Celiac Disease. Performed By: #### T4FRE ####[facility], [place] [address]FCXZXIWXOQN SCREENon 45-61-6781ePBE Coag time (Bld)28 s Fgwzfi23 - 36[facility] CenterComment on above:Result Comment: THE APTT IS NO LONGER USED FOR MONITORING UNFRACTIONATED HEPARIN THERAPY. FOR MONITO RING HEPARIN THERAPY, USE THE HEPARIN ASSAY.Performed By: #### VTDOH ####[facility], [place] [address]VJE Coag RelTime (PPP)1.1 {INR}Normal0.9 - 1.1[facility] CenterComment on above: Performed By: #### VTDOH ####[facility], [place] [address]Bnqrvnsuzzd time (PT) Coag time (PPP)12.1 sNormal9.8 - 12.7[facility] CenterComment on above:Performed By: #### VTDOH ####[facility], [place] [address]MBEPSJL FUNCTION PANELon 48-09-6696JBW enzyme act/ofz549 U/LQqdnsa54 - 239[facility] CenterComment on above:Performed By: #### VTDOH ####[facility], [place] [address]KBO enzyme act/vol39 U/LHigh3 - 28[facility] CenterComment on above:Result Comment: Patients treated with Sulfasalazine may generate falsely decreased results for ALT.Performed By: #### KACIH ####[facility], [place] [address]RLR enzyme act/vol27 U/LHigh9 - 24[facility] CenterComment on above: Performed By: #### VTDOH ####[facility], [place] [address]Sefqvhuhc mass conc0.4 mg/dLNormal0.0 - 0.9[facility] CenterComment on above:Performed By: #### VTDOH ####[facility], [place] [address]Macqcnmwc.direct mass conc0.1 mg/dL Normal0.0 - 0.3[facility] CenterComment on above:Performed By: #### VTDOH ####[facility], [place] [address]Khgshat mass conc5.7 g/dLLow6.2 - 7.7[facility] CenterComment on above: Performed By: #### VTDOH ####[facility], [place] [address]WXZPZMgd 16-31-4343Fecskv enzyme act/vol16 U/LNormal9 - 82[facility] CenterComment on above:Result Comment: Venipuncture immediately after or during the administration of Metamizole may lead to falsely low results. Testing should be performed immediately prior to Metamizole dosing.Performed By: #### VTDOH ####[facility], [place] [address]CRMIX FUNCTION PANELon 37-75-3761Byncbyk mass conc3.8 g/dLNormal3.4 - 5.0[facility] CenterComment on above:Performed By: #### T4FRE ####[facility] [place] [address] Performed By: #### VTDOH ####[facility], [place] [address]Abgjl gap 3 molar conc13 mmol/LTodsok69 - 30[facility] CenterComment on above:Performed By: #### T4FRE ####[facility], [place] [address]Ktolngh mass conc9.2 mg/dLNormal8.5 - 10.7[facility] CenterComment on above:Performed By: #### T4FRE ####[facility], [place] [address]Lvinkcxj molar conc 106 mmol/HPkdavz55 - 107[facility] CenterComment on above:Performed By: #### T4FRE ####[facility], [place] [address]Vwtztrkhwd mass conc0.56 mg/dLNormal0.50 - 1.00[facility] Comment on above:Performed By: #### T4FRE ####[facility], [place] [address]Zsoycee mass bkgn547 mg/vWFxzx19 - 99[facility] CenterComment on above:Performed By: #### T4FRE ####[facility], [place] [address]GEO5 molar conc (Bld)26 mmol/LNormal 18 - 27[facility] CenterComment on above:Performed By: #### T4FRE ####[facility], [place] [address]Rwfpewoha mass conc4.3 mg/dLNormal3.0 - 5.4[facility] CenterComment on above: Result Comment: The performance characteristics of phosphorus testing in heparinized plasma have been validated by the individual laboratory site where testing is performed. Testing on heparinizedplasma is not approved by the FDA; however, such approval is not necessary.Performed By: #### T4FRE ####[facility], [place] [address]Zubbequgf molar conc 3.9 mmol/LNormal3.5 - 5.3[facility] CenterComment on above:Performed By: #### T4FRE ####[facility], [place] [address]Qrealm molar csbj347 mmol/DSnzcid952 - 145[facility] Comment on above:Performed By: #### T4FRE ####[facility], [place] [address]Laqz nitrogen mass conc11 mg/dLNormal6 - 23[facility] CenterComment on above:Performed By: #### T4FRE ####[facility], [place] [address]GKYGUYJid 08-09-2017 Amylase enzyme act/vol22 U/OBdkicf49 - 76[facility] CenterComment on above:Performed By: #### AMIRA ####[facility], [place] [address]N-RATIUYYC PROTEINon 81-27-0245NWZ mass conc0.36 mg/dL NormalPalisades Medical CenterComment on above:Result Comment: REF VALUE< 1.00Performed By: #### CRP ####[place] [address], [place] [address]ROV AND DIFFERENTIALon 08-09-2017% AUTOMATED IMMATURE GRAN0.3 %Normal0.0 - 1.0[facility] CenterComment on above:Result Comment: Percent differential counts (%) should be interpreted in the context of the absolute cell counts (cells/L).Performed By: #### CBCDF ####[place] [address] [place] [address]% DIURORGUHL71.6 %Rwcrdv01.0 - 69.0[facility] CenterComment on above:Performed By: #### CBCDF ####[place] [address] [place], [place] [address]Zmgsgkdcv/100 WBC Auto (Bld)0.04 x10E9/LNormal0.00 - 0.10[facility] CenterComment on above:Performed By: #### CBCDF ####[place] [address], [place] [address]Vuatazpmi/100 WBC Auto (Bld)0.5 %Normal0.0 - 1.0[facility] CenterComment on above:Performed By: #### CBCDF ####[place] [address] [place], [place] [address]Amfcawltzop Auto #/vol (Bld)0.28 10*3/uLNormal0.00 - 0.70[facility] CenterComment on above:Performed By: #### CBCDF ####[place] [address], [place] [address]Kdnerkieadv/100 WBC Auto (Bld)3.6 %Normal0.0 - 5.0[facility] CenterComment on above:Performed By: #### CBCDF ####[place] [address] [place], [place] [address]Bqfoioqgnds distribution width Auto Ratio (RBC)14.4 %Zroufo09.5 - 14.5[facility] CenterComment on above:Performed By: #### CBCDF ####[place] [address], [place] [address]Bguvrfoxdu Auto Volume Fraction (Bld) 37.7 %Iebjzz27.0 - 46.0[facility] CenterComment on above:Performed By: #### CBCDF ####[facility] [place] [address] Hemoglobin mass conc (Bld)11.5 g/dLLow12.0 - 16.0[facility] Comment on above:Performed By: #### CBCDF ####[facility], [place] [address]Dpchmrbndpp Auto #/vol (Bld)2.20 10*3/uLNormal1.80 - 4.80[facility] CenterComment on above:Performed By: #### CBCDF ####[facility] [place] [address] Lymphocytes/100 WBC Auto (Bld)28.2 %Lpsokf58.0 - 48.0[facility] Comment on above:Performed By: #### CBCDF ####[facility], [place] [address]ZQFV Auto mass conc (RBC)30.5 g/dLLow31.0 - 37.0[facility] CenterComment on above:Performed By: #### CBCDF ####[facility], [place] [address]TMV Auto Entitic volume (RBC)82 jPJyurla08 - 102[facility] CenterComment on above: Performed By: #### CBCDF ####[facility], [place] [address]Goxnftmat Auto #/vol (Bld)0.53 10*3/uLNormal0.10 - 1.00[facility] CenterComment on above:Performed By: #### CBCDF ####[facility], [place] [address]Kzjsadips/100 WBC Auto (Bld)6.8 %Normal3.0 - 9.0[facility] CenterComment on above: Performed By: #### CBCDF ####[facility], [place] [address]Vzrqkiqsixx Auto #/vol (Bld)4.73 10*3/uLNormal1.20 - 7.70 [facility] CenterComment on above:Performed By: #### CBCDF ####[facility], [place] [address]Ijbwzhgic RBC/100 WBC Ratio (Bld)0.0 /100 WBCNormal0.0-0.0[facility] CenterComment on above:Performed By: #### CBCDF ####[place] [address], [place] [address]Hlinagdpw Auto #/vol (Bld)290 10*3/uAUcbnao575 - 400[facility] CenterComment on above:Performed By: #### CBCDF ####[place] [address], [place] [address]XMG Auto #/vol (Bld) 4.62 x10E12/LNormal4.10 - 5.20[facility] CenterComment on above: Performed By: #### CBCDF ####[facility], [place] [address]UPC Auto #/vol (Bld)7.8 10*3/uLNormal4.5 - 13.5[facility] CenterComment on above:Performed By: #### CBCDF ####[place] [address], [place] [address]UCFABTEUCGB SCREENon 31-39-6890aTJO Coag time (Bld)29 hWurbvs38 - 36[facility] Comment on above:Result Comment: THE APTT IS NO LONGER USED FOR MONITORING UNFRACTIONATED HEPARIN THERAPY. FOR MONITORING HEPARIN THERAPY, USE THE HEPARIN ASSAY.Performed By: #### VTDOH ####[facility], [place] [address]XUV Coag RelTime (PPP)1.2 {INR}High0.9 - 1.1[facility] CenterComment on above:Performed By: #### VTDOH ####[facility], [place] [address]Tabwhmnvjyy time (PT) Coag time (PPP) 12.9 sHigh9.8 - 12.7[facility] CenterComment on above:Performed By: #### VTDOH ####[facility] [place] [address] ESR-WESTERGRENon 67-05-4550GSP-WESTERGREN8 mm/hNormal0 - 13[facility] CenterComment on above:Performed By: #### VTDOH ####[facility], [place] [address]AEZoz 18-96-3349LAV34 U/LNormal5 - 20 [facility] CenterComment on above:Performed By: #### GGT ####[facility], [place] [address]FLSGGMHLBA A1Con 91-26-4993Fdqlqiuvvh A1c/Hemoglobin.total mass fraction (Bld)5.6 %NormalPalisades Medical CenterComment on above:Result Comment: Diagnosis of Diabetes- Adults Non-Diabetic: < or = 5.6% Increased risk for developing diabetes: 5.7- 6.4% Diagnostic of diabetes: > or = 6.5%. Monitoring of Diabetes Age (y) Therap eutic Goal (%) Adults: >18 <7.0 Pediatrics: 13-18 <7.5 7-12 <8.0 0- 6 7.5-8.5 [employer]. Diabetes Care 33(S1), Nov 2009.Performed By: #### VTDOH ####[facility] [place] [address] HEPATIC FUNCTION PANELon 11-41-4981JPR enzyme act/syn504 U/EZzsydu84 - 239[facility] CenterComment on above:Performed By: #### HEPFP ####[facility], [place] [address]YAT enzyme act/vol41 U/LHigh3 - 28[facility] CenterComment on above:Result Comment: Patients treated with Sulfasalazine may generate falsely decreased results for ALT.Performed By: #### HEPFP ####[facility], [place] [address]CJI enzyme act/vol25 U/LHigh9 - 24[facility] CenterComment on above:Performed By: #### HEPFP ####[facility], [place] [address]Xduwmucke mass conc0.3 mg/dLNormal0.0 - 0.9[facility] CenterComment on above:Performed By: #### HEPFP ####[facility], [place] [address]Voimlhsci.direct mass conc0.1 mg/dLNormal0.0 - 0.3[facility] CenterComment on above: Performed By: #### HEPFP ####[facility], [place] [address]Xtwotvr mass conc6.7 g/dLNormal6.2 - 7.7[facility] CenterComment on above:Performed By: #### HEPFP ####[facility], [place] [address]ASSD + TIBCon 08-09-2017% SATURATION 13 %Low25 - 45[facility] CenterComment on above:Performed By: #### IRONT ####[facility], [place] [address]Prmh mass conc53 ug/rTBecima05 - 138[facility] CenterComment on above: Performed By: #### IRONT ####[facility], [place] [address]UABJ359 ug/nMCibvqf142 - 445[facility] Comment on above:Performed By: #### IRONT ####[facility], [place] [address]QJSEQDst 59-15-3821Gdciex enzyme act/vol17 U/L Normal9 - 82[facility] CenterComment on above:Result Comment: Venipuncture immediately after or during the administration of Metamizole may lead to falsely low results. Testing should be performed immediately prior to Metamizole dosing.Performed By: #### LIPAS ####[facility], [place] [address]MUEPJ FUNCTION PANELon 95-27-0323Bhrgiof mass conc 4.3 g/dLNormal3.4 - 5.0[facility] CenterComment on above:Performed By: #### VTDOH ####[facility] [place] [address] Performed By: #### HEPFP ####[facility], [place] [address]Jnffd gap 3 molar conc13 mmol/RFdkejq17 - 30[facility] CenterComment on above:Performed By: #### VTDOH ####[facility], [place] [address]Mhohxyv mass conc9.5 mg/dLNormal8.5 - 10.7[facility] CenterComment on above:Performed By: #### VTDOH ####[facility], [place] [address]Wavzffwc molar conc 105 mmol/HDkrijy14 - 107[facility] CenterComment on above:Performed By: #### VTDOH ####[facility], [place] [address]Dblrkzijon mass conc0.50 mg/dLNormal0.50 - 1.00[facility] Comment on above:Performed By: #### VTDOH ####[facility], [place] [address]Ntotsoq mass conc83 mg/mKFopqrh89 - 99[facility] CenterComment on above:Performed By: #### VTDOH ####[facility], [place] [address]BAD1 molar conc (Bld)27 mmol/L Lybckh98 - 27[facility] CenterComment on above:Performed By: #### VTDOH ####[facility] [place] [address] Phosphate mass conc4.1 mg/dLNormal3.0 - 5.4[facility] CenterComment on above:Result Comment: The performance characteristics of phosphorus testing in heparinized plasma have been validated by the individual laboratory site where testing is performed. Testing on heparinizedplasma is not approved by the FDA; however, such approval is not necessary.Performed By: #### VTDOH ####[facility], [place] [address]Ndhizujiw molar conc 4.1 mmol/LNormal3.5 - 5.3[facility] CenterComment on above:Performed By: #### VTDOH ####[facility] [facility], [place] [address]Mfhdsr molar wfnk649 mmol/BFterbz358 - 145[facility] Comment on above:Performed By: #### VTDOH ####[place] [address], [place] [address]Zibi nitrogen mass conc11 mg/dLNormal6 - 23[facility] CenterComment on above:Performed By: #### VTDOH ####[place] [address] [facility], [place] [address]DDKZIEWPD,FREEon 55-11-5136UMLAGISQX,FREE1.08 ng/dLNormal0.78 - 1.48[facility] Comment on above:Result Comment: Thyroxine Free testing is performed using different testing methodology at [facility] than at other [facility]. Direct result comparisons should only be made within the same method.. Patients receiving more than 5 mg/day of biotin may have interference in test results. A sample should be taken no sooner than eight hours after previous dose. Contact [phone] additional information.Performed By: #### T4FRE ####[place] [address] [place], [place] [address]YSKda 78-79-1911Xddpqswfzdv Qn1.71 m[IU]/LNormal0.44 - 3.98[facility] Comment on above:Result Comment: TSH testing is performed using different testing methodology at [facility] than at other [facility]. Direct result comparisons should only be made within the same method.. Patients receiving more than 5 mg/day of biotin may have interference in test results. A sample should be taken no sooner than eight hours after previous dose. Contact [phone] for additional information.Performed By: #### TSH2 ####[facility], [place] [address]TBGYJEB D, 25-HYDROXYon [id number] D, 25-LFQVMDB72 ng/mLAbnoUCHealth Highlands Ranch Hospital Comment on above:Result Comment: .DEFICIENCY: < 20 NG/MLINSUFFICIENCY: 20-29 NG/MLOPTIMUM LEVEL: 30-80 NG/MLPOSSIBLE TOXICITY: > 80 NG/MLTHIS ASSAY ACCURATELY QUANTIFIES THE SUM OFVITAMIN D3, 25-HYDROXY AND VITD2,25-HYDROXY. Performed By: #### VTDOH ####[id number] [place] [address] Vital Signs Date TimeVital SignValuePerforming [id number] 20:30-0500Heart rate51 /minEs[facility] Hospitalit [facility]02-19-2025 20:30-0500 Respiratory rate12 /[facility]2025 20:30-2480JwA3% (BldA) [Mass fraction]98 %[facility]02-19-2025 19:30-0500Diastolic blood rypvanwo565 mm[Hg][facility]02-19-2025 19:30-0500Heart rate48 /min[facility]02-19-2025 19:30-0500Mean blood kpuvbnhc560 mm[Hg][facility]02-19-2025 19:30-0500 Respiratory rate13 /min[facility]02-19-2025 19:30-1487NbP2% (BldA) [Mass fraction]98 %[facility]02-19-2025 19:30-0500Systolic blood mm[Hg][facility]02-19-2025 17:53-0500Body fnesislsrxj93.14 [degF][facility]02-19-2025 17:53-0500Diastolic blood mm[Hg][facility]02-19-2025 17:53-0500Heart rate64 /min[facility]02-19-2025 17:53-0500Respiratory rate20 /minC[facility] 01-16-2025 17:53-0968NqR5% (BldA) [Mass fraction]100 %[facility]02-19-2025 17:53-0500Systolic blood updlmngw158 mm[Hg][facility]12-02-2024 00:01-0500Diastolic blood kanqqryu48 mm[Hg]Services [employer] Work Phone: [phone] [place], [place] 7865712-02-2024 00:01-0500 Heart rate72 /[facility] centerIn[facility] Work Phone: [phone] [place], [place] 7865712-02-2024 00:01-0500 Respiratory rate16 /[employer] Work Phone: [facility] Administration12-02-2024 00:01-0500 SaO2% (BldA) [Mass fraction]99 %Services [employer] Work Phone: [facility]12-02-2024 00:01-0500 Systolic blood mm[Hg]Services [employer] Work Phone: [phone])608-[facility]12-01-2024 18:07-0500 Body xgubiy381.48 cmSEasiest Credit Card To Get Approved For Work Phone: [phone]-[facility]12-01-2024 18:07-0500 Body fqlxwydcglw37.6 [degF]Services [employer] Work Phone: 1(889)624-[address] [place], [place] 7865712-01-2024 18:07-0500 Body rouctp07.85 kgSerriddle hospital [employer] Work Phone: 1(415)[address]09-06-2024 23:10-0400 Diastolic blood mbnowkvw14 mm[Hg]Services [facility] Work Phone: 1(807)[address]09-06-2024 23:10-0400 Heart rate95 /[facility] [employer] Work Phone: 1(465)[address] [place], [place] 4411209-06-2024 23:10-0400 Respiratory rate18 /[facility] [employer] Work Phone: 1(553)[address] [place], [place] 4411209-06-2024 23:10-0400 SaO2% (BldA) [Mass fraction]99 %Services [employer] Work Phone: 1(850)[address] [place], [place] 4411209-06-2024 23:10-0400 Systolic blood wbeojdcl603 mm[Hg]Services [facility] Work Phone: 1(110)43051 [address]09-06-2024 20:35-0400 Body kohtwo312.48 [facility] Work Phone: 1(453)[address] [place], [place] 4411209-06-2024 20:35-0400 Body yatogfvwtyb51.1 [degF]Services [facility] Work Phone: 1(049)[address]09-06-2024 20:35-0400 Body jaiyyc72.71 kgSerriddle hospital [employer] Work Phone: [phone] [place], [place] 7865709-02-2024 22:55-0400 Diastolic blood jmxqieej42 mm[Hg]Cresencio Abel [facility]09-02-2024 22:55-0400Heart rate50 /minCresencio Abel [facility]09-02-2024 22:55-0400Mean blood mm[Hg]Cresencio Abel [facility]09-02-2024 22:55-0400 Respiratory rate16 /minTim Colten [facility]09-02-2024 22:55-7930KwU7% (BldA) [Mass fraction]98 %Cresencio Abel [address] [place], [place] 7893209-02-2024 22:55-0400 Systolic blood mm[Hg]Cresencio Abel [address]09-02-2024 19:28-0400Body fqnjlpucyxz86.06 [degF]Cresencio Abel [address]09-02-2024 19:28-0400 Diastolic blood zfvfrhce89 mm[Hg]Cresencio Abel [address]09-02-2024 19:28-0400Heart rate55 /minTim Colten [address] [place], [place] 7893209-02-2024 19:28-0400 Respiratory rate16 /minTim Colten [facility]09-02-2024 19:28-2157KoP8% (BldA) [Mass fraction]97 %Cresencio Abel [facility]09-02-2024 19:28-0400 Systolic blood yxndeypb116 mm[Hg]Cresencio Abel [address] [place], [place] 7893204-22-2024 00:10-0400 Diastolic blood atrezxsg78 mm[Hg]Services [facility] Work Phone: [facility]04-22-2024 00:10-0400 Heart ipnp103 /[facility] Work Phone: [facility]04-22-2024 00:10-0400 Respiratory rate18 /[facility] Work Phone: [facility]04-22-2024 00:10-0400 SaO2% (BldA) [Mass fraction]100 %Services [employer] Work Phone: [facility]04-22-2024 00:10-0400 Systolic blood owrnkwkw956 mm[Hg]Services [facility] Work Phone: [facility]04-21-2024 22:03-0400 Body soqmmu324.02 cmServices [facility] Work Phone: [facility]04-21-2024 22:03-0400 Body fmnqapzeqhe94.3 [degF]Services [facility] Work Phone: [facility]04-21-2024 22:03-0400 Body byueyf83.2 kgServices [facility] Work Phone: [facility]04-18-2024 13:43-0400 Diastolic blood uvryjtdi65 mm[Hg][facility] 03-15-2024 13:43-0400Heart rate51 /[facility]04-18-2024 13:43-0400Mean blood osofkvku026 mm[Hg][facility]04-18-2024 13:43-0400Respiratory rate16 /[facility]-18-2024 13:43-0442HsH0% (BldA) [Mass fraction] 100 %[facility]04-18-2024 13:43-0400Systolic blood zkeqbyfo982 mm[Hg][facility]04-18-2024 12:01-0400Diastolic blood mm[Hg][facility]04-18-2024 12:01-0400Heart rate52 /[facility]04-18-2024 12:01-0400Mean blood shahhcxj027 mm[Hg][facility]04-18-2024 12:01-3403CjB8% (BldA) [Mass fraction]100 %[facility]04-18-2024 12:01-0400Systolic blood pressure 148 mm[Hg][facility]04-18-2024 10:35-0400Body orrfnfujbbg42.52 [degF][facility]04-18-2024 10:35-0400Diastolic blood horuwkfu09 mm[Hg][facility]04-18-2024 10:35-0400Heart rate60 /[facility]04-18-2024 10:35-0400Respiratory rate18 /[facility]04-18-2024 10:35-6885IcF3% (BldA) [Mass fraction]98 %[facility]04-18-2024 10:35-0400Systolic blood pressure 143 mm[Hg][facility]04-16-2024 22:00-0400 Diastolic blood crchylxr450 mm[Hg]Femi Roman [address] [place], [place] 7893204-16-2024 22:00-0400Heart rate53 /minFemi Romna [address] [place], [place] 7893204-16-2024 22:00-0400Mean blood isfncshs464 mm[Hg]Femi Roman [address] [place], [place] 7893204-16-2024 22:00-4984RqR4% (BldA) [Mass fraction]100 %Femi Roman [address] [place], [place] 7893204-16-2024 22:00-0400 Systolic blood mm[Hg]Femi Jessie [address] [place], [place] 7893204-16-2024 21:00-0400 Diastolic blood sardkxnc141 mm[Hg]Femi Jessie [address] [place], [place] 7893204-16-2024 21:00-0400Heart rate93 /minFemi Roman [address] [place], [place] 7893204-16-2024 21:00-0400Mean blood djbohpir902 mm[Hg]Femi Roman [address] [place], [place] 7893204-16-2024 21:00-0400 Respiratory rate21 /minJomarylu Roman [address] [place], [place] 7893204-16-2024 21:00-1851HfJ8% (BldA) [Mass fraction]98 %Femi Roman [address] [place], [place] 7893204-16-2024 21:00-0400 Systolic blood iidltecl290 mm[Hg]Femi Roman [address] [place], [place] 7893204-16-2024 20:00-0400 Diastolic blood fktvdefl602 mm[Hg]Femi Roman [address] [place], [place] 7893204-16-2024 20:00-0400Heart rate50 /Tiffany Roman [address] [place], [place] 7893204-16-2024 20:00-0400Mean blood vuesmgcm941 mm[Hg]Femi Roman [address] [place], [place] 7893204-16-2024 20:00-0400 Systolic blood xiasiwez432 mm[Hg]Femi Roman [address] [place], [place] 7893204-16-2024 19:38-0400 Respiratory rate14 /minFemi Roman [address] [place], [place] 7893204-16-2024 18:36-0400 Respiratory rate18 /minJomarylu Jessie [address] [place], [place] 7893204-16-2024 17:51-0400Body bzerrylwuui62.24 [degF]Femi Roman [address] [place], [place] 7893204-16-2024 17:36-0400Body fmbvgxgdwip38.24 [degF]Femi Roman [facility]04-16-2024 17:36-0400Heart rate61 /Tiffany Roman [facility]04-16-2024 17:36-0400 Respiratory rate18 /Tiffany Roman [facility]09-03-2023 18:09-0400Body xmsook170.48 cmSEasiest Credit Card To Get Approved For Work Phone: [facility]09-03-2023 18:09-0400 Body evsrnlexeaw08.6 [degF]Services [employer] Work Phone: 1([phone])798-[facility]09-03-2023 18:09-0400 Body qiuejv99 kgSerriddle hospital [employer] Work Phone: 1(115)110-[facility]09-03-2023 18:09-0400 Diastolic blood jmtocucl183 mm[Hg]Services [employer] Work Phone: 1([phone])828-[facility]09-03-2023 18:09-0400 Heart rate87 /[employer] Work Phone: 1(227)785-[facility]09-03-2023 18:09-0400 Respiratory rate18 /[employer] Work Phone: 1(762)228-[facility]09-03-2023 18:09-0400 SaO2% (BldA) [Mass fraction]98 %Services [employer] Work Phone: 1(557)618-[facility]09-03-2023 18:09-0400 Systolic blood bdonnghk232 mm[Hg]Services [employer] Work Phone: 1([phone])202-[facility]06-28-2023 13:11-0400 Diastolic blood jcdutjyt66 mm[Hg]Services [employer] Work Phone: [facility]06-28-2023 13:11-0400 Heart rate60 /[employer] Work Phone: 1(352)747-[facility]06-28-2023 13:11-0400 Respiratory rate16 /[facility]Sg[facility] [employer] Phone: 1(373)427-[facility]06-28-2023 13:11-0400 SaO2% (BldA) [Mass fraction]97 %Services [employer] Phone: [facility]06-28-2023 13:11-0400 Systolic blood gavslzpx063 mm[Hg]Services [employer] Phone: 1(892)703-[facility]06-28-2023 11:56-0400 Inhaled oxygen flow rate6 L/[facility] [employer] Phone: 1(807)620-[facility]06-28-2023 11:54-0400 Body tttpkhaytpo55.2 [degF]Services [employer] Phone: 1(187)125-[facility]06-28-2023 09:39-0400 Body mljydl215.02 cmSguthrie [facility] [employer] Phone: 1(014)166-[facility]06-28-2023 09:39-0400 Body mass index (BMI) [Percentile] Per age and sex96.6 %Services [facility] [employer] Phone: [phone])551-[facility]06-28-2023 09:39-0400 Body mass index (BMI) [Ratio]33.6 kg/c5Jsvmjrtq [employer] Phone: [facility]06-28-2023 09:39-0400 Body .18 kgSerriddle hospital [employer] Phone: [facility]06-26-2023 08:00-0400 Body ycfgje952.48 cmThomas Olexa Other [employer] Other 06-26-2023 08:00-0400Body mass index (BMI) [Ratio] 34.75 kg/w3Ayixyd Olexa Other [employer] Other 06-26-2023 08:00-0400Body .18 kgThomas Olexa Other [employer] Other 02-10-2023 14:08-0500Body jdeysa653.48 cmServices [employer] Work Phone: 1(271)999-[facility]02-10-2023 12:34-0500 Body iguwjtpkclz63.1 [degF]Services [facility] [employer] Work Phone: 1(304)596-[address] [place], [place] 4874302-10-2023 12:34-0500 Diastolic blood mbtdwuzu91 mm[Hg]Services [facility] [employer] Work Phone: 1(927)25[address]02-10-2023 12:34-0500 Heart rate75 /[facility] [employer] Work Phone: 1(023)198-[address] [place], [place] 4874302-10-2023 12:34-0500 SaO2% (BldA) [Mass fraction]100 %Services [facility] [employer] Work Phone: 1(863)804-[address] [place], [place] 4874302-10-2023 12:34-0500 Systolic blood giiqtwwt072 mm[Hg]Services [facility] [employer] Work Phone: 1(841)666-[address] [place], [place] 4874302-10-2023 11:57-0500 Respiratory rate18 /[facility] [employer] Work Phone: 1(323)004-[address] [place], [place] 4874302-10-2023 06:00-0500 Body vyozhg85.2 kgSerlucile [facility]es [facility] [employer] Work Phone: 1(644)666-[address] [place], [place] 4874302-09-2023 18:29-0500 Diastolic blood rycywzdk87 mm[Hg]Services [facility] [employer] Work Phone: 1(156)202-[address] [place], [place] 4874302-09-2023 18:29-0500 Heart rate64 /[facility] [employer] Work Phone: 1(428)890-[address] [place], [place] 4874302-09-2023 18:29-0500 Respiratory rate16 /[facility] [employer] Work Phone: 1(936)733-[address] [place], [place] 4874302-09-2023 18:29-0500 SaO2% (BldA) [Mass fraction]98 %Services [employer] Work Phone: 1(678)04711 [address]02-09-2023 18:29-0500 Systolic blood chnanuek567 mm[Hg]Services [facility] [employer] Work Phone: 1(577)[address] [place], [place] 5416202-09-2023 11:12-0500 Body ojueih846.48 [facility] Center[facility] Work Phone: 1(928)[address] [place], [place] 5416202-09-2023 11:12-0500 Body eewlrricoeo92 [degF]Services [facility] [employer] Work Phone: 1([phone])50111 [address]02-09-2023 11:12-0500 Body qvayyf23.11 kgSerHospital Corporation of America [employer] Work Phone: 1(674)[address] [place], [place] 5416202-05-2023 04:00-0500 Heart rate62 /[employer] Work Phone: 1(959)[address] [place], [place] 5416202-05-2023 04:00-0500 Respiratory rate18 /[employer] Work Phone: 1(360)[address] [place], [place] 5416202-05-2023 04:00-0500 SaO2% (BldA) [Mass fraction]100 %Services [facility] [employer] Work Phone: 1(632)[address] [place], [place] 5416202-05-2023 02:37-0500 Diastolic blood mm[Hg]Services [facility] [employer] Work Phone: 1(495)[address] [place], [place] 5416202-05-2023 02:37-0500 Systolic blood lendsltx791 mm[Hg]Services [facility] [employer] Work Phone: 1(765)[address] [place], [place] 5416202-05-2023 01:14-0500 Body ebgoox720.48 [facility] [employer] Work Phone: 1(613)09711 [address]02-05-2023 01:14-0500 Body mkmglfnhzbi22 [degF]Services [facility] [employer] Work Phone: 1(416)20311 [address]02-05-2023 01:14-0500 Body .11 kgSerlucile [facility] st[facility]fordBon [facility] [employer] Work Phone: 1(449)998-[facility]02-03-2023 12:11-0500 Heart rate70 /[facility]SOhio[facility] [employer] Work Phone: 1(364)40611 [address]02-03-2023 12:08-0500 Body .48 [facility] [employer] Work Phone: 1(470)60811 [address]02-03-2023 12:08-0500 Body wxtkywzadci31.7 [degF]Services [facility] [employer] Work Phone: 1(369)42211 [address]02-03-2023 12:08-0500 Body vwncwe79 [facility] [employer] Work Phone: 1(217)89311 [address]02-03-2023 12:08-0500 Diastolic blood muxzolvl17 mm[Hg]Services [facility] [employer] Work Phone: 1(321)9[address]02-03-2023 12:08-0500 Respiratory rate18 /[facility] [employer] Work Phone: 1(102)36311 [address]02-03-2023 12:08-0500 SaO2% (BldA) [Mass fraction]99 %Services [facility] [employer] Work Phone: 1(273)[address] [place], [place] 5416202-03-2023 12:08-0500 Systolic blood xuraeqqp482 mm[Hg]Services [facility] [employer] Work Phone: 1(655)[address] [place], [place] 5416212-13-2022 15:15-0500 Body mretif567.48 [facility] [employer] Work Phone: 1(693)72711 [address]12-13-2022 15:15-0500 Body qnxbbzstfsy71.4 [degF]Services [facility] [employer] Work Phone: 1(477)58211 [address]12-13-2022 15:15-0500 Body zgfiir97.64 [facility]Piggott [facility] [employer] Work Phone: 1(195)79011 [address]12-13-2022 15:15-0500 Diastolic blood hhaqvfjg23 mm[Hg]Services [facility] [employer] Work Phone: 1(419)[address] [place], [place] 5416212-13-2022 15:15-0500 Heart rate95 /minSEasiest Credit Card To Get Approved For Senior Work Phone: 1(781)[address] [place], [place] 5416212-13-2022 15:15-0500 Respiratory rate16 /minSEasiest Credit Card To Get Approved For Senior Work Phone: 1(591)[address] [place], [place] 5416212-13-2022 15:15-0500 SaO2% (BldA) [Mass fraction]100 %Services [facility] [employer] Work Phone: [phone])[address] [place], [place] 5416212-13-2022 15:15-0500 Systolic blood mm[Hg]Services [facility] [employer] Work Phone: 1(126)[address] [place], [place] 5416212-11-2022 13:40-0500 Diastolic blood rdyxbmqc25 mm[Hg]Services [facility] [employer] Work Phone: 1(794)[address] [place], [place] 5416212-11-2022 13:40-0500 Heart rate68 /[employer] Work Phone: [phone])[address] [place], [place] 5416212-11-2022 13:40-0500 Respiratory rate16 /minSHunington Propertieslamar regional hospital [employer] Work Phone: 1(024)[address] [place], [place] 5416212-11-2022 13:40-0500 SaO2% (BldA) [Mass fraction]100 %Services [facility] [employer] Work Phone: 1(785)[address] [place], [place] 5416212-11-2022 13:40-0500 Systolic blood gavhcnwt016 mm[Hg]Services [facility] [employer] Work Phone: 1(927)[address] [place], [place] 5416212-11-2022 11:05-0500 Body pxzoqzxevcs41.2 [degF]Services [facility] [employer] Work Phone: 1(973)[address] [place], [place] 5416212-11-2022 11:04-0500 Body .75 cmServices [employer] Work Phone: 1(898)[address] [place], [place] 5416212-11-2022 11:04-0500 Body hbctoo45 kgServices [employer] Work Phone: 1(623)[address] [place], [place] 5416212-06-2022 09:53-0500 Diastolic blood nesbumll52 mm[Hg]Services [facility] [employer] Work Phone: 1(741)[address]12-06-2022 09:53-0500 Heart rate50 /[employer] Work Phone: 1(177)46011 [address]12-06-2022 09:53-0500 Respiratory rate18 /[facility]Sg[facility] [employer] Work Phone: 1(130)27911 [address]12-06-2022 09:53-0500 SaO2% (BldA) [Mass fraction]98 %Services [facility] [employer] Work Phone: 1(716)34611 [address]12-06-2022 09:53-0500 Systolic blood npiewmxl967 mm[Hg]Services [facility] [employer] Work Phone: 1(549)33811 [address]12-06-2022 03:00-0500 Body zllbav988.48 cmSSwedish [facility] [employer] Work Phone: 1(325)[address] [place], [place] 5416212-06-2022 03:00-0500 Body vvppgquletb65.4 [degF]Services [facility] [employer] Work Phone: 1(797)[address]011 [address]12-06-2022 03:00-0500 Body kgSerRady Children's [facility] [employer] Work Phone: 1(710)85911 [address]12-04-2022 10:05-0500 Diastolic blood iwozofhs16 mm[Hg]Services [facility] [employer] Work Phone: 1(823)81811 [address]12-04-2022 10:05-0500 Heart rate59 /minSguthrie [facility] [employer] Work Phone: 1(626)246-[address] [place], [place] 4874312-04-2022 10:05-0500 Respiratory rate18 /[facility]burgHun[facility] Propertieslam[facility] [employer] Work Phone: 1(482)02811 [address]12-04-2022 10:05-0500 SaO2% (BldA) [Mass fraction]98 %Services [facility] [employer] Work Phone: 1(284)81311 [address]12-04-2022 10:05-0500 Systolic blood cbrnewxs458 mm[Hg]Services [facility] [employer] Work Phone: 1(061)617-[address] [place], [place] 4874312-04-2022 08:50-0500 Body kzwqur570.48 [facility] [employer] Work Phone: 1(947)55111 [address]12-04-2022 08:50-0500 Body mgypfancfaf30.2 [degF]Services [facility] [employer] Work Phone: 1(863)63111 [address]12-04-2022 08:50-0500 Body .91 kgSerHospital Corporation of America [employer] Work Phone: 1(310)14811 [address]12-02-2022 12:01-0500 Body gxbmou991.48 [facility] [employer] Work Phone: 1(966)02611 [address]12-02-2022 12:01-0500 Body .8 [degF]Services [facility] [employer] Work Phone: 1(044)404-[address] [place], [place] 4874312-02-2022 12:01-0500 Body jlrkow30 kgSerHospital Corporation of America [employer] Work Phone: 1(973)55511 [address]12-02-2022 12:01-0500 Diastolic blood smsbjufa00 mm[Hg]Services [facility] [employer] Work Phone: 1(006)06311 [address]12-02-2022 12:01-0500 Heart rate60 /[facility] [employer] Work Phone: 1(751)448-[address] [place], [place] 4874312-02-2022 12:01-0500 Respiratory rate18 /[facility] [employer] Work Phone: 1(247)780-[address] [place], [place] 4874312-02-2022 12:01-0500 SaO2% (BldA) [Mass fraction]99 %Services [facility] [employer] Work Phone: 1(972)548-[address] [place], [place] 4874312-02-2022 12:01-0500 Systolic blood bqseyfdy051 mm[Hg]Services [facility] [employer] Work Phone: 1(305)89411 [address]09-25-2022 12:00-0400 Body omnzkwxvwwk55 [degF]Services [employer] Phone: 1(391)48351 [address]09-25-2022 12:00-0400 Diastolic blood kjhqtoky55 mm[Hg]Services [employer] Work Phone: [address] [place], [place] 4411209-25-2022 12:00-0400 Heart rate80 /[employer] Work Phone: [address] [place], [place] 4411209-25-2022 12:00-0400 Respiratory rate18 /minSEasiest Credit Card To Get Approved For Work Phone: [phone])[address] [place], [place] 4411209-25-2022 12:00-0400 SaO2% (BldA) [Mass fraction]95 %Services [employer] Work Phone: [address] [place], [place] 4411209-25-2022 12:00-0400 Systolic blood mm[Hg]Services [employer] Work Phone: [address] [place], [place] 4411209-25-2022 05:50-0400 Body .5 kgServic [employer] Work Phone: [address] [place], [place] 4411209-24-2022 11:27-0400 Body vdlxiz618.48 cmServices [employer] Work Phone: 1(292)[address] [place], [place] 4411209-23-2022 16:34-0400 Diastolic blood mm[Hg]Services [employer] Work Phone: [address] [place], [place] 4411209-23-2022 16:34-0400 Heart rate68 /[employer] Work Phone: [phone])38851 [address]09-23-2022 16:34-0400 Respiratory rate20 /minSEasiest Credit Card To Get Approved For Work Phone: [address] [place], [place] 4411209-23-2022 16:34-0400 SaO2% (BldA) [Mass fraction]96 %Services [employer] Work Phone: 1(383)12551 [address]09-23-2022 16:34-0400 Systolic blood deukxjnh402 mm[Hg]Services [employer] Work Phone: 1(207)9[address]09-23-2022 11:58-0400 Body oboiqg069.48 [employer] Work Phone: 1(346)14151 [address]09-23-2022 11:58-0400 Body tcrpsplzofz97.9 [degF]Services [employer] Work Phone: 1(663)83551 [address]09-23-2022 11:58-0400 Body qdujyc37.37 kgSer[employer] Work Phone: 1(159)74051 [address]09-23-2022 01:00-0400 Body tfzznkanqds70.9 [degF]Services [employer] Work Phone: 1(281)26[address]09-23-2022 01:00-0400 Diastolic blood isevqmpd57 mm[Hg]Services [employer] Work Phone: 1(514)56251 [address]09-23-2022 01:00-0400 Heart rate53 /[employer] Work Phone: 1(277)61351 [address]09-23-2022 01:00-0400 Respiratory rate16 /[employer] Work Phone: 1(798)[address]09-23-2022 01:00-0400 SaO2% (BldA) [Mass fraction]97 %Services [employer] Phone: 1(102)85151 [address]09-23-2022 01:00-0400 Systolic blood uwuimlyx312 mm[Hg]Services [employer] Work Phone: 1(703)47151 [address]09-22-2022 18:57-0400 Body .48 cmSEasiest Credit Card To Get Approved For Work Phone: 1(377)06051 [address]09-22-2022 18:57-0400 Body iztgsx49.37 kgSerD[employer] Work Phone: 1(712)16651 [address]09-22-2022 14:00-0400 Diastolic blood pktcxapc01 mm[Hg]Services [employer] Work Phone: 1(980)33951 [address]09-22-2022 14:00-0400 Heart rate67 /[employer] Work Phone: 1(951)217-[address] [place], [place] 7865709-22-2022 14:00-0400 Respiratory rate20 /minSthe university of [facility]led[facility] medical centerIncis[facility] Surgical Work Phone: 1(743)37551 [address]09-22-2022 14:00-0400 SaO2% (BldA) [Mass fraction]99 %Services [employer] Work Phone: 1(543)67451 [address]09-22-2022 14:00-0400 Systolic blood xrwzgtyp931 mm[Hg]Services [employer] Work Phone: 1(479)55351 [address]09-22-2022 00:40-0400 Body nrrooj923.48 cmSguthrie cort[facility] center [employer] Work Phone: 1(909)74551 [address]09-22-2022 00:40-0400 Body jnhpycdqtld13.8 [degF]Services [employer] Work Phone: 1(132)76651 [address]09-22-2022 00:40-0400 Body ffhjdu93.11 kgSerriddle hospital [employer] Work Phone: 1(769)82651 [address]09-21-2022 15:28-0400 Body nwfvcrncrev49.8 [degF]Services [employer] Work Phone: 1(430)75751 [address]09-21-2022 15:28-0400 Diastolic blood mm[Hg]Services [employer] Work Phone: 1(292)7[address]09-21-2022 15:28-0400 Heart rate54 /PlanZapguthrie cortland medical center [employer] Work Phone: 1([phone])45151 [address]09-21-2022 15:28-0400 Respiratory rate20 /[facility] [employer] Work Phone: 1(969)95351 [address]09-21-2022 15:28-0400 SaO2% (BldA) [Mass fraction]100 %Services [employer] Work Phone: [phone])68951 [address]09-21-2022 15:28-0400 Systolic blood bbnjuwrg342 mm[Hg]Services [employer] Work Phone: 1(419)[address] [place], [place] 4411209-21-2022 12:26-0400 Body .48 [facility] Center[facility]asi[facility] Credit Card To Get Approved For Work Phone: [phone] [place], [place] 4411209-21-2022 12:26-0400 Body .11 [facility] [employer] Phone: [phone])[address] [place], [place] 4411207-13-2022 10:25-0400 Diastolic blood ushncbav44 mm[Hg]Services [employer] Work Phone: 1(850)[address] [place], [place] 4411207-13-2022 10:25-0400 Heart rate83 /[facility] [employer] Phone: 1(728)[address] [place], [place] 4411207-13-2022 10:25-0400 Respiratory rate20 /[facility] [employer] Phone: [phone])[address] [place], [place] 4411207-13-2022 10:25-0400 SaO2% (BldA) [Mass fraction]98 %Services [employer] Phone: [phone])[address] [place], [place] 4411207-13-2022 10:25-0400 Systolic blood ppkrrenj25 mm[Hg]Services [employer] Phone: 1(683)[address] [place], [place] 4411207-13-2022 08:46-0400 Body xwpypo805.48 [facility] CenterHunington Propertieslamar regional hospital [employer] Phone: [phone])[address] [place], [place] 4411207-13-2022 08:46-0400 Body mass index (BMI) [Percentile] Per age and sex96.2 %Services [employer] Phone: [phone])36[address]07-13-2022 08:46-0400 Body mass index (BMI) [Ratio]32 kg/h3Rcgcfnvt [employer] Phone: 1(320)[address] [place], [place] 4411207-13-2022 08:46-0400 Body wexmvnihcax36.4 [degF]Services [employer] Phone: 1(929)[address] [place], [place] 4411207-13-2022 08:46-0400 Body .37 [facility] [employer] Work Phone: 1(081)[address] [place], [place] 4411206-19-2022 13:52-0400 Diastolic blood afvqrwtd71 mm[Hg]Services [employer] Work Phone: 1(333)413-[address] [place], [place] 7865706-19-2022 13:52-0400 Heart rate66 /minServIncisive Surgical Work Phone: 1(644)96751 [address]06-19-2022 13:52-0400 Respiratory rate18 /minServices [employer] Work Phone: 1(712)53151 [address]06-19-2022 13:52-0400 SaO2% (BldA) [Mass fraction]100 %Services [employer] Work Phone: [phone])68451 [address]06-19-2022 13:52-0400 Systolic blood vgbgnhbe352 mm[Hg]Services [employer] Phone: [phone])09951 [address]06-19-2022 11:54-0400 Body .48 [facility] [employer] Work Phone: [phone]06-19-2022 11:54-0400 Body mass index (BMI) [Percentile] Per age and sex95.5 %Services [employer] Phone: [phone])45[address]06-19-2022 11:54-0400 Body mass index (BMI) [Ratio]31.1 kg/x7Kelosydr [employer] Phone: 1(749)017-[address] [place], [place] 7865706-19-2022 11:54-0400 Body ktgtidfugio72.4 [degF]Services [employer] Work Phone: 1(329)9[address]06-19-2022 11:54-0400 Body hheymb33.11 [facility] hospital [employer] Phone: 1(690)84651 [address]06-18-2022 15:30-0400 Diastolic blood tqwniwgb77 mm[Hg]Services [employer] Phone: 1([phone])86251 [address]06-18-2022 15:30-0400 Heart rate52 /minServIncisive Surgical Work Phone: 1(300)558-[address] [place], [place] 7865706-18-2022 15:30-0400 Respiratory rate14 /minServices [employer] Work Phone: 1(529)784-[address] [place], [place] 7865706-18-2022 15:30-0400 SaO2% (BldA) [Mass fraction]99 %Services [employer] Work Phone: [phone])099[address]06-18-2022 15:30-0400 Systolic blood enaenbjx695 mm[Hg]Services [employer] Work Phone: [phone])417[address]06-18-2022 12:28-0400 Body blpqyv641.48 cmSg[facility] [employer] Work Phone: 1([phone])12351 [address]06-18-2022 12:28-0400 Body mass index (BMI) [Percentile] Per age and sex95.5 %Services [employer] Work Phone: [phone])316[address]06-18-2022 12:28-0400 Body mass index (BMI) [Ratio]31 kg/w3Vhiedute [employer] Work Phone: 1(223)741-[address] [place], [place] 7865706-18-2022 12:28-0400 Body xktmxstkiey51.1 [degF]Services [facility] Work Phone: [phone](324)[address]06-18-2022 12:28-0400 Body fyfhnu83 [facility] hospital [employer] Work Phone: 1(274)085[address]06-17-2022 22:56-0400 Body hqeulanpzpq06.1 [degF]Services [facility] Work Phone: 1(035)96751 [address]06-17-2022 22:56-0400 Diastolic blood opmuruci72 mm[Hg]Services [facility] Work Phone: 1(905)77[address]06-17-2022 22:56-0400 Heart rate18 /minSthe university of [facility]ledo medical centerIncisive Surgical Work Phone: 1(817)33651 [address]06-17-2022 22:56-0400 Respiratory rate18 /minSthe [facility] of toledo medical centerIncis[facility] Surgical Work Phone: 1(312)156-[address] [place], [place] 7865706-17-2022 22:56-0400 SaO2% (BldA) [Mass fraction]94 %Services [employer] Phone: 1(853)038-[address] [place], [place] 7865706-17-2022 22:56-0400 Systolic blood hbbzclyl879 mm[Hg]Services [employer] Phone: [phone])85651 [address]06-17-2022 02:18-0400 Body mrmmny489.48 cmSthe university of toledo medical centerices [employer] Work Phone: [phone] [place], [place] 7865706-17-2022 02:18-0400 Body mass index (BMI) [Percentile] Per age and sex95.5 %Services [employer] Phone: 1(464)163-[address] [place], [place] 7865706-17-2022 02:18-0400 Body mass index (BMI) [Ratio]31.1 kg/o1Kokwhrrj [employer] Phone: [phone])42851 [address]06-17-2022 02:18-0400 Body ddjgdhsjasd18.9 [degF]Services [employer] Phone: 1(540)26[address]06-17-2022 02:18-0400 Body rxinjw66.11 [facility] hospital [employer] Phone: 1(183)691-[address] [place], [place] 7865706-17-2022 02:18-0400 Diastolic blood kwaxtady34 mm[Hg]Services [employer] Phone: 1(397)104-[address] [place], [place] 7865706-17-2022 02:18-0400 Heart rate54 /minSthe [facility] of [facility] medical centerIncisive Surgical Work Phone: 1(751)022-[address] [place], [place] 7865706-17-2022 02:18-0400 Respiratory rate18 /minSthe [facility] of [facility] medical centerIncisive Surgical Work Phone: 1(299)509-[address] [place], [place] 7865706-17-2022 02:18-0400 SaO2% (BldA) [Mass fraction]98 %Services [employer] Phone: 1(399)194-[facility]06-17-2022 02:18-0400 Systolic blood eywhoiiv923 mm[Hg]Services [employer] Phone: 1(562)152-[address] [place], [place] 7865706-16-2022 12:09-0400 Heart rate72 /[facility] [employer] Phone: 1(894)800-[address] [place], [place] 7865706-16-2022 12:09-0400 Respiratory rate18 /[facility] [employer] Phone: [phone])[address] [place], [place] 4411206-16-2022 12:09-0400 SaO2% (BldA) [Mass fraction]98 %Services [facility] [employer] Phone: [phone])618[address]06-16-2022 10:32-0400 Body tdqgib633.21 [facility]Ohio[facility] [employer] Phone: [phone])77[address]06-16-2022 10:32-0400 Body mass index (BMI) [Percentile] Per age and sex95.9 %Services [facility] [employer] Phone: [phone])95[address]06-16-2022 10:32-0400 Body mass index (BMI) [Ratio]31.6 kg/i3Uobswqvl [employer] Phone: [phone])37[address]06-16-2022 10:32-0400 Body eehsohbsgrf76.1 [degF]Services [facility] [employer] Phone: [phone])[address]06-16-2022 10:32-0400 Body .11 kgSerHospital Corporation of America [employer] Phone: [phone]06-16-2022 10:32-0400 Diastolic blood ysvvnsxt90 mm[Hg]Services [facility] [employer] Phone: [phone])7[address]06-16-2022 10:32-0400 Systolic blood cbljkbzo786 mm[Hg]Services [facility] [employer] Phone: [phone] [place] [address] Encounters Encounter DateEncounter TypeCare ProviderFacilityStart: 08-28-2025 End: 24-67-2203Vucsvaj encounter procedureKelsey Espino APRN MEDICAL SECRETARY-BC-Lab [facility] [place] Work Phone: Start: 08-28-2025 End: 56-41-3383ltmwaxcxxiGKQVDNLDR NO [facility] [place] Work Phone: Start: 08-22-2025 End: 63-71-1508Aqxgvaiva department patient visitFederico Randolph Facility:FTMCStart: 05-06-2025 End: 14-76-7677ikicjucmqtAptcl T [facility] Work Phone: Start: 05-06-2025 End: 30-53-2434Imqiskdq Kimber Dahl MD Work Phone: [facility]-LAB Path Spec Myra HospStart: 05-04-2025 End: 04-70-2294bajkrnmeomVomlzsm M [facility] Work Phone: Start: 05-04-2025 End: 74-04-6163Cptfbfiy Kimber Dahl MD Work Phone: [facility]-LAB Path Spec Myra HospStart: 01-23-2025 End: 26-64-1259crgoqdtzevOmbcxgae [facility] Work Phone: [facility] Work Phone: Start: 01-23-2025 End: 75-47-5952Lhnvedzb ReferredSerHospital Corporation of America Work Phone: [facility]-LAB Path Spec Myra HospStart: 01-16-2025 End: 90-07-2098Lrryhjxaj department patient visitAstrit H [facility] Start: 10-28-2024 End: 32-74-2315Urpkhhhjx department patient visitServices [facility] Work Phone: [facility]-Emergency Room Work Phone: Start: 44-58-5363Fhq-patient / Non-visitServices [facility] Work Phone: [facility] Work Phone: Start: 08-03-2024 End: 98-25-4171Intizrllo department patient visitServices [facility] Work Phone: [facility]-Emergency Room Work Phone: Start: 08-01-2024 End: 42-87-7177Paflniwph department patient visitJEARAMIS MENDESSONFacility:FT Start: 07-30-2024 End: 98-81-6378Plzdaniwq department patient visitTim ThomasFacility:FTMCStart: 03-18-2024 End: 07-92-3584Nixmniudi department patient visitServices Family [facility] Work Phone: [facility]-Emergency Room Work Phone: Start: 03-15-2024 End: 04-32-1873Ogwzyvwab department patient visitAstrit Raf EbonyAshtabula [facility] Start: 03-13-2024 End: 72-72-8551Thiwixpzs department patient visitJomarylu Ernandeze [facility] Start: 07-31-2023 End: 03-60-0909Otrrdwvfw department patient visitServices Family [facility] Work Phone: [facility]-Emergency Room Work Phone: Start: 07-14-2023 End: 89-07-2575hedgicodpgTormnjws [facility] Work Phone: [facility] Work Phone: Start: 07-14-2023 End: 00-80-0758Hkuqptp encounter procedureServices Family [facility] Work Phone: [facility]-XRay [facility] Start: 06-16-2023 End: 83-55-5589qraaeyisykBqessnoq Family [facility] Work Phone: [phone] [place] [address] Ctr Work Phone: Start: 06-16-2023 End: 55-24-6418Pzhyouu encounter procedureServices [employer] Work Phone: [facility] Start: 39-77-9374Ipejqr follow up visit related to original pxThomas OlexaFPG [facility] OrthopedicsStart: 06-02-2023 End: 59-08-7779pseowiswwzBaufeefs [facility] Work Phone: [employer] Other Start: 06-02-2023 End: 70-78-6763Xvfqkdb encounter procedureServIncisive Surgical Work Phone: [facility]-XRay [facility] Start: 05-25-2023 End: 58-54-7377Ocdtbxngg to same day surgery centerServIncisive Surgical Work Phone: [facility]-Surgery Center [place]Start: 05-25-2023 End: 07-29-4555qtnzgdewhhHktfzaso [employer] Work Phone: [facility] Work Phone: Start: 05-24-2023 End: 59-66-5187lirqgaxfodTcnbwb Olexa Other [employer] Other Start: 87-77-4526Vcnajvhxr encounterThomas OlexaFPG [facility] OrthopedicsStart: 05-23-2023 End: 32-00-6553cvulptbkopLglnbp Olexa Other [employer] Other Start: 27-46-4544Qdlpgaayk for other preprocedural examinationThomas OlexaFPG [facility] OrthopedicsStart: 47-44-2607Edjuro outpatient new 45 minutesThomas OlexaFPG [facility] OrthopedicsStart: 03-15-2023 End: 20-18-3914Outcezpm ReferredSerriddle hospital [facility] Work Phone: [facility]-[place] [facility] ServicesStart: 01-26-2023 End: 29-51-3843etxdaphyjzLO DOCTOR MISCFacility:B3Wdadc: 01-06-2023 End: 34-75-9849Wibvpxswcm and management of inpatientSCone Health [facility] Work Phone: [facility] Work Phone: Start: 53-15-3663hknjlgslixu encounterServCone Health [facility] Work Phone: [facility] Work Phone: Start: 01-06-2023 End: 94-35-1259EilhqfwvScotland Memorial Hospital Work Phone: [facility] Work Phone: Start: 01-02-2023 End: 31-47-1511BqjaokvvScotland Memorial Hospital Work Phone: [facility]-Emergency Room Work Phone: Start: 01-01-2023 End: 77-38-8080wwsenyospgNSVBMZ DIAB .Facility:D1Smqkc: 12-31-2022 End: 56-04-4743Ccfdiuset department patient visitServCone Health [facility] Work Phone: [facility] Work Phone: Start: 12-31-2022 End: 42-59-6050VumeekymScotland Memorial Hospital Work Phone: [facility]-Emergency Room Work Phone: Start: 11-09-2022 End: 33-60-0341Zjmadwgvb department patient visitServCone Health [facility] Work Phone: [facility] Work Phone: Start: 11-09-2022 End: 37-02-3544RmkhkknkCone Health [facility] Work Phone: [facility]-Emergency RoomStart: 11-07-2022 End: 61-89-3235Wwcqxwtrk department patient visitServices [facility] Work Phone: [facility] Work Phone: Start: 11-07-2022 End: 93-36-8304Lwajwrzx [facility] Work Phone: [facility]-Emergency RoomStart: 11-02-2022 End: 79-57-8999Dmdepjoso department patient visitServices [facility] Work Phone: [facility] Work Phone: Start: 11-02-2022 End: 98-43-7414Qhdrjvnn [facility] Work Phone: [facility]-Emergency RoomStart: 10-31-2022 End: 07-77-9082Kjxxplzom department patient visitServices [facility] Work Phone: [facility] Work Phone: Start: 10-31-2022 End: 47-78-6491Xqpxjtfk [facility] Work Phone: [facility]-Emergency RoomStart: 10-29-2022 End: 78-19-9347Arslenhfn department patient visitServices [facility] [employer] Work Phone: [facility]-Emergency RoomStart: 10-29-2022 End: 98-95-7430Aowvgvki [facility] Work Phone: [facility]-Emergency RoomStart: 08-27-2022 End: 91-15-3490Nkdayakz ReferredSerHospital Corporation of America Senior Work Phone: [facility] ServicesStart: 08-27-2022 End: 44-00-2184Exxxlvbc [facility] [employer] Work Phone: [facility] ServicesStart: 08-20-2022 End: 84-94-8042Phfmwogxpv and management of inpatientServlamar regional hospital [employer] Phone: [facility]-3 [facility] SurgStart: 08-20-2022 End: 77-75-2440Jkzfyuvv [facility] Work Phone: [facility]-3 [facility] SurgStart: 08-19-2022 End: 18-17-6947Cvsgfswys department patient visitServFormerly [facility] Work Phone: [facility]-Emergency RoomStart: 08-19-2022 End: 97-77-7522Avmewcyv [facility] Work Phone: [facility]-Emergency RoomStart: 08-19-2022 End: 42-76-8471Zfrwjnesx department patient visitServFormerly [facility] [employer] Phone: [facility]-Emergency RoomStart: 08-19-2022 End: 97-38-6804Gvzpeckp [facility] Work Phone: [facility]-Emergency RoomStart: 08-18-2022 End: 21-16-4469Lrygmpdif department patient visitServFormerly [facility] [employer] Phone: [facility]-Emergency RoomStart: 08-18-2022 End: 23-91-3821Reosxlhi [facility] [employer] Work Phone: [facility]-Emergency RoomStart: 06-25-2022 End: 84-18-8619Euqhbtxu ReferredSerRady [facility] Hospital [employer] Phone: [facility]-LA Family [facility] ServicesStart: 06-09-2022 End: 14-00-8803Xasivrzoe to same day surgery centerServlamar regional hospital [employer] Phone: [facility] C[facility]-Digestive HealthStart: 06-07-2022 End: 43-37-3064Mdeqxme encounter procedureServlamar regional hospital [employer] Phone: [facility] Pse-Jby-Fasngphn Testing Start: 05-26-2022 End: 47-41-7067Iiiauprm ReferredServic Family [facility] Work Phone: [facility] ServicesStart: 45-43-6372uqndcvlyyiZvuthk Jenkins RNNURSE ON CALLComment on above:Abdominal PainStart: 05-16-2022 End: 50-42-5720Ubehsciee department patient visitServices Family [facility] Work Phone: [phone] [place] [address] Ctr-Emergency RoomStart: 05-15-2022 End: 33-80-5512Auewyfjjx department patient visitServices [facility] Work Phone: 1([phone] [place] [address] Ctr-Emergency RoomStart: 05-14-2022 End: 88-13-8669Kqkbvgerj department patient visitServices [facility] Work Phone: [phone] [place] [address] Ctr-Emergency RoomStart: 05-14-2022 End: 09-58-8461Uolsrfoyd department patient visitServices [facility] Work Phone: [facility] Ctr-Emergency RoomStart: 05-13-2022 End: 88-47-2660Odvtxzbng department patient visitServices [facility] Work Phone: [phone] [place] [address] Ctr-Emergency RoomStart: 46-49-6149Kdowdqbydk and management of inpatientBridget Magy Unger Facility:RBCStart: 97-55-3386Tlojiub encounterJUDY B SPLIRAISFacility:9193Start: 94-20-8027Xtpkbwa encounterMere Solorio MaxwellFacility:9193Start: 04-14-2018 Patient encounterJUDY B SPLAWSKIFacility:9193Start: 46-91-6507Fdwexkw encounter Mere PuenteswellFacility:9193Start: 06-46-1074Fccuuiv encounterJUDY B SPLIRAIS Facility:9193Start: 18-72-8160Dbuzmjk encounterJUDY B SPLAWSKIFacility:9193 Start: 87-73-2571Qsfibdt encounterJUDY B SPLAWSKIFacility:9193Start: 09-28-2017 Patient encounterKatmilo Solorio MaxwellFacility:9305Start: 66-15-9959Pgniutj encounterDALI Marcus KEYONNAFacility:[facility] CtrStart: 08-09-2017 End: 41-45-0682Uucpngwkxs and management of inpatientAIMEE WILKERSONINTEGRIS BAPTIST [facility] – OKLAHOMA CITYLUIS EDUARDO Facility:RBC Procedures DateProcedureProcedure DetailPerforming ClinicianStart: 02-15-2263Sabxu culture Jasmeet Dahl MD Work Phone: Start: 06-99-9878Wvptn [facility] CenterEasiest Credit Card To Get Approved For Work Phone: Start: 11-82-1405H-ray of right kneeServices [employer] Work Phone: Start: 37-92-8230G-ray of right kneeSguthrie cortland medical center [employer] Work Phone: Start: 58-48-3343Q-ray of right kneeSthe university of toledo medical centerices [employer] Work Phone: Start: 70-20-1311Zasumuxnorf of kneeSthe university of toledo medical centerIncisive Surgical Work Phone: Start: 37-23-5325Hihbwthpuhk Panel (PCR)Services [employer] Work Phone: Start: 96-80-8534Hyaitugj tomography of abdomen and pelvis with contrastSthe university of toledo medical centerWindSim Work Phone: Start: 07-24-8123Socvr chest X-raySthe university of toledo medical centerLifeshare Technologies Phone: Start: 02-78-1108Vgbapm X-raySthe university of toledo medical centerWindSim Work Phone: Start: 46-41-1280Xsupv cultureSthe university of toledo medical centerWindSim Work Phone: Start: 30-22-0697Lkpynczvo A and B virus antigen assay Services [employer] Work Phone: Start: 09-45-9021Juixn cultureSStra[employer] Work Phone: Start: 01-16-5406Yazgi Counts include [facility] beds at the [facility] HospitalWind[facility] Work Phone: Start: 78-12-3109Ztwvp cultureServWindSim Work Phone: Start: 81-24-2626Hyoyshgv tomography of abdomen and pelvis with contrastServices [employer] Work Phone: Start: 37-01-6042RjobvugaajehsdurhfupqejkfxYftbfcyo [employer] Phone: Start: 55-70-0560Dzniaqgk tomography of abdomen and pelvis with contrastServices [employer] Work Phone: Start: 96-27-9146Twsrjndydhef of Nutritional Substance into Upper GI, Via Natural or Artificial OpeningKathleen MaxwellStart: 44-81-8526Wnlerpcsfr of Larynx, Via Natural or Artificial Opening Endoscopic Mere MaxwellStart: 62-89-5497Jyfmjmd Bleeding in Respiratory Tract, Via Natural or Artificial OpeningKathleen MaxwellStart: 36-15-7843Vmctolua of Duodenum, Via Natural or Artificial Opening Endoscopic, DiagnosticKateen MaxwellStart: 30-13-8523Ayidizvm of Lower Esophagus, Via Natural or Artificial Opening Endoscopic, DiagnosticKathleen MaxwellStart: 28-59-3763Cxwownwf of Stomach, Pylorus, Via Natural or Artificial Opening Endoscopic, Diagnostic [facility] HospitalSARS Antigen (LFIA)Services [employer] Work Phone: SARS Antigen (LFIA)Services [employer] Work Phone: SARS Antigen (LFIA)Services [employer] Work Phone: Urine Counts include 234 beds at the [facility] HospitalIn[facility] Work Phone: Urine Counts include 234 beds at the [facility] HospitalIn[facility] Work Phone: Urine Counts include 234 beds at the [facility] HospitalIn[facility] Work Phone: Urine Counts include 234 beds at the [facility] HospitalWindSim Work Phone: [facility] [employer] Work Phone: Serlucile [facility] [employer] Work Phone: [facility] [employer] Work Phone: Plan of Treatment DateCare ActivityDetailAutrStart: 92-53-5890Kllam [facility] Townshiptart: 61-10-0320Jibsnovn identified in Urine by CultureUrine CultureUC Medical Centertart: 90-62-8844Zhovlvzl identified in Urine by CultureUrine CultureUC Medical Centertart: 05-06-2025 Urine cultureUC Medical Centertart: 04-33-0813Wibfdjip identified in Urine by CultureUrine [facility] Start: 03-44-6398Rfqjy [facility] Townshiptart: 01-23-2025 Bacteria identified in Urine by CultureUrine [facility] Hospitaltart: 88-29-0245Bctno [facility] Townshiptart: 45-50-0546PgljcydbdUC Medical Centertart: 04-95-7022KtinkqflkUC Medical Centertart: 09-69-5212PjjjyjolgUC Medical Centertart: 57-37-0560JnvvdhvtqUC Medical Centertart: 89-22-5229Ibidl chemistry UC [facility] Centertart: 66-08-5787SeinrmlvaUC Medical Centertart: 29-70-5237Qwdzp chemistryUC Medical Centertart: 01-07-2023 End: 31-11-7660IzatcxjhrUC Medical Centertart: 19-66-4137Bvnxuvw referral to dietitianUC Medical Centertart: 74-68-8846Luetcihd admissionUC Medical Centertart: 91-23-3123JebjkuwflUC Medical Centertart: 87-31-4874Nbevyuio tomography of abdomen and pelvis with contrastUC Medical Centertart: 59-40-8643JA Abdomen and Pelvis W contrast [facility] Hospitaltart: 01-06-2023 End: 89-00-0385GyqnueuztFayette County Memorial Hospital CenterStart: 33-52-6701Acizk culture UC Medical Centertart: 12-31-2022 End: 15-23-2773UgsstilsjUC Medical Centertart: 58-87-8238SptkkyeveFayette County Memorial Hospital CenterStart: 98-67-4682FmhicausmUC Medical Centertart: 86-15-1556WcibebirpUC Medical Centertart: 85-74-6695VwtytyvvlMorrow [facility] Hospital Work Phone: Start: 06-53-4012Ddplvonc admissionUC Medical Centertart: 47-08-5619KbvbyidfgFayette [facility] Ctr Work Phone: Start: 94-20-9314RklmkqwmeFayette County Memorial Hospital Ctr Work Phone: Start: 70-98-0903Fgzldcxf tomography of abdomen and pelvis with contrastCT abdomen pelvis w [facility] Start: 81-39-0126SJ Abdomen and Pelvis W contrast [facility] Work Phone: Start: 40-62-3131BzenkwfnsFayette County Memorial Hospital Ctr Work Phone: Start: 98-54-0102Vwytglaon vaccinationINFLUENZA (Season Ended)[facility] [place]: 90-73-8827EhxfzefdiFayette County [facility] Hospital [facility]tr Work Phone: Start: 51-06-9745CORQEGTWH SCREENING (18-24)CHLAMYDIA SCREENING (18-24)[facility] [place]: 74-23-1187DZ (GONORRHEA) SCREENING (18-24)GC (GONORRHEA) SCREENING (18-24)[facility] [place]: 2022 HEPATITIS C SCREENINGHEPATITIS C SCREENINGRegency Hospital [place]: 05-54-1809ZTD SCREENINGHIV SCREENINGRegency Hospital [place]: 73-43-3555AHFVETPGWJCOZ CONJUGATE (1 - 2-dose series)MENINGOCOCCAL CONJUGATE (1 - 2-dose series)[facility] Start: 81-24-7472VMFP TO ADULT TRANSITION ANNUAL ASSESSMENTPEDS TO ADULT TRANSITION ANNUAL ASSESSMENTRegency Hospital [place]: 78-81-4445Dnwnx depression screening assessmentDEPRESSION SCREENINGCleOhio State University Wexner Medical Centertart: 84-51-2890YGWS TO ADULT TRANSITION INITIAL DISCUSSIONPEDS TO ADULT TRANSITION INITIAL DISCUSSION [facility] [place]: 33-88-1184PTL VACCINE (1 - 2-dose series)HPV VACCINE (1 - 2-dose series)[facility] [place]: 83-50-6842HFODNTWFSWDGW B: Consider based on risk (1 of 2 - Risk Bexsero 2-dose series)MENINGOCOCCAL B: Consider based on risk (1 of 2 - Risk Bexsero 2-dose series)[facility] [place]: 14-07-9772Oqxzq microalbumin profileDTAP,TDAP,TD (1 - Tdap)[facility] [place]: 2009 COVID-19 VACCINE (#1)[facility] HospitalAmphetamines [Presence] in [facility]rineM[facility] Work Phone: Bacteria identified in Blood by CultureVeterans Health AdministrationBacteria identified in Urine by CultureVeterans Health AdministrationBacteria identified in Urine by CultureVeterans Health AdministrationBarbiturates [Presence] in UrineMorrow County Hospital Work Phone: Basophils [#/volume] in Blood by Automated count [facility] AdministrationBasophils/100 leukocytes in Blood by Automated countVeterans Health AdministrationBenzodiazepines [Presence] in Urine [facility] Work Phone: Bilirubin measurement, urineMorrow County Hospital Work Phone: Cannabinoids [Presence] in Urine by Screen method [facility] Work Phone: Chlamydia trachomatis DNA [Presence] in Unspecified specimen by JANAK with probe detectionVeterans Health AdministrationChlamydia trachomatis rRNA [Presence] in Cervix by JANAK with probe detectionVeterans Health AdministrationChoriogonadotropin ( test) [Presence] in Urine [facility] Work Phone: Cocaine [Presence] in UrineM[facility] County Hospital Work Phone: Color of UrineMorrow County Hospital Work Phone: Detection of hemoglobinMorrow County Hospital Work Phone: Eosinophils/100 leukocytes in Blood by Automated count [facility] AdministrationErythrocyte distribution width [Ratio] by Automated countVeterans Health AdministrationErythrocytes [#/volume] in Blood [facility] AdministrationGlucose [Mass/volume] in Urine by Test strip [facility] Work Phone: Hematocrit [Volume Fraction] of [facility] JacksonHemoglobin [Mass/volume] in [facility] JacksonHomogenous nuclear Ab pattern [Titer] in [facility] Work Phone: Hunorth sutton papilloma virus 16+18+31+33+35+39+45+51+52+56+58+59+66+68 DNA [Presence] in Cervix by Probe with signal amplificationVeterans Health AdministrationHuman papilloma virus 16+18+31+33+35+39+45+51+52+56+58+59+68 DNA [Presence] in Cervix by Probe with signal amplificationVeterans Health AdministrationLeukocytes [#/volume] corrected for nucleated erythrocytes in Blood by Automated counVeterans Health AdministrationLeukocytes [#/volume] in [facility] JacksonLymphocytes [#/volume] in Blood by Automated [facility] JacksonLymphocytes/100 leukocytes in Blood by Automated [facility] JacksonMCH [Entitic mass] by Automated [facility] JacksonMCHC [Mass/volume] by Automated [facility] JacksonMCV [Entitic volume] by Automated [facility] Measurement of ketones in urine using dipstickFayette County Memorial Hospital Ctr Work Phone: Monocytes [#/volume] in Blood by Automated count [facility] AdministrationMonocytes/100 leukocytes in Blood by Automated countVeterans Health AdministrationNeisseria gonorrhoeae DNA [Presence] in Unspecified specimen by JANAK with probe detectionVeterans Health AdministrationNeisseria gonorrhoeae rRNA [Presence] in Cervix by JANAK with probe detectionVeterans Health AdministrationNeutrophils [#/volume] in Blood by Automated countVeterans Health AdministrationNeutrophils/100 leukocytes in Blood by Automated [facility] JacksonNuclear Ab [Titer] in [facility] Work Phone: Nucleated erythrocytes [Presence] in Blood by Automated [facility] JacksonPatient [facility] Work Phone: Patient referralFayette County Memorial [facility] Work Phone: Phencyclidine [Presence] in UrineFayette County Memorial Hospital [facility] Work Phone: Platelet mean volume [Entitic volume] in Blood by Automated countVeterans Health AdministrationPlatelets [#/volume] in Blood [facility] AdministrationProtein measurement, urineFayette County Memorial Hospital [facility]tr Work Phone: [phone]-EdC-2 (COVID-19) N gene [Presence] in Respiratory specimen by JANAK with probe detectionFayette County Memorial Hospital [facility]tr Work Phone: Trichomonas vaginalis DNA [Presence] in Unspecified specimen by JANAK with probe detectionVeterans Health AdministrationUrinalysis, specific gravity measurementFayette County Memorial Hospital [facility]tr Work Phone: Urine cultureUrine CultureVeterans Health AdministrationUrine cultureVeterans Health AdministrationUrine dipstick for nitrite [facility] Work Phone: Urine dipstick for specific gravityFayette County Memorial Hospital [facility]tr Work Phone: Urine pH testFayette County Memorial Hospital [facility] Work Phone: Urobilinogen concentration, test strip measurement [facility] Work Phone: [facility] Immunizations Immunization DateImmunizationNotesCare NkytmordJupcrhhn05-00-3018mihorlw toxoid, reduced diphtheria toxoid, and acellular pertussis vaccine, adsorbedServices [facility] Work Phone: [facility]02-10-2017Human Papillomavirus 9-valent vaccineThomas Olexa Other [place] [employer] Other [id number], unspecified formulationServices [facility] Work Phone: [facility]10-10-2016influenza, injectable, quadrivalent, preservative freeThomas Olexa Other [facility]10-10-2016Human Papillomavirus 9-valent vaccineThomas Olexa Other [employer] Other [phone], unspecified formulationServices [employer] Work Phone: [facility]08-04-2016human papilloma virus vaccine, quadrivalentThomas Olexa Other [facility]08-04-2016 meningococcal polysaccharide (groups A, C, Y and W-135) diphtheria toxoid conjugate vaccine (MCV4P)Colten Olexa Other [facility]08-04-2016tetanus toxoid, reduced diphtheria toxoid, and acellular pertussis vaccine, adsorbed Colten Olexa Other [facility]10-05-2015influenza, injectable, quadrivalent, preservative freeThomas Olexa Other [facility]09-22-2014influenza, injectable, quadrivalent, contains preservativeServices [employer] Work Phone: [facility]09-22-2014influenza, injectable, quadrivalent, preservative freeThomas Olexa Other [employer] - Private Location [employer] Other [phone], seasonal, injectable, preservative freeThomas Olexa Other [facility] Payers DatePayer CategoryPayerPolicy [id number]-pay2019MedicaidCARESOURCE MEDICAID [facility] MEDICAID [id number] 2019-Present [phone] [address] [place] [address] [id number] .1.000054.3.57[id number] 2.16.840.1.664874.3.57[id number] 2.840.1.764951.3.57[id number] 2.840.1.352985.3.57[id number] 2.0.1.419755.3.57[id number] 2.0.1.264105.3.57[id number] 2.0.1.463876.3.57[id number] 2.0.1.407404.3.57[id number] 2.0.1.103968.3.57[id number] 2..1.583383.3.57[id number] 2.0.1.741586.3.57[id number] 2..1.972259.3.57[id number] 2.840.1.308952.3.579.2.593 [id number] 2.0.1.194527.93VgyswwzD[id number] [id number] 70di171n-5348-8359-4rd[id number] 367d202g-j748-1gj8-[id number] 29yk94jz-03lm-8e88-[id number] 2.16.840.1.8[id number] 2..0.1.802759.3.579.2.531 [id number] 2..0.1.38[id number] 2..0.1.318[id number] 2.0.1.621343.3.579.2.531 Social History DateTypeDetailFacilityStart: 10-09-2021 End: 16-36-8926Sjmeqdf smoking status NHISNever smoked tobaccoOhiohealth Grove City Methodist Hospital Start: 40-56-4347Yknturr use and exposureSmokeless tobacco non-userRegency Hospital [place]: 19-65-4978Bsyikjh intakeLifetime non-drinker (finding)[facility] [place]: 13-66-5764Xdzsksn SDOH Alcohol Ioitcnaqa8Ktygawsnk ClinicStart: 24-66-2984Dxg Assigned At BirthNot on fileRegency Hospital [place]: 06-09-2022 End: 69-76-1923Mwbntje smoking status NHISSmoker (finding)[facility]: 02-39-0307Pvx Assigned At BirthFemalFairfield Medical Centertart: 08-18-2022 End: 60-11-5726Sdftrlx smoking status NHISCurrent some day smokerUC Medical Centertart: 52-96-0090Yroyyde smoking status NHISEx-smoker (finding)[facility] Centerex [facility]igned At [facility] HospitalTobacco smoking statusNeKettering Health Behavioral Medical Centertart: 01-24-2025 End: 22-33-3908TnjWseaqy (finding)[facility] AdministrationNEGATED: Highlighted rowVeterans Health Administration Medical Equipment Procedure CodeEquipment CodeEquipment Original TextEquipment IdentifierDates Arthroscopy, kneeTendon/ligament bone anchor, non-bioabsorbable ()[id number] FDAStart: 76-05-7406Vfwxckrgzqf, knee Soft-tissue/mesh anchor, non-bioabsorbable()[id number] FDAStart: 74-51-5372Lwqrhlolcgn, kneeTendon/ligament bone anchor, bioabsorbable ()[id number] FDAStart: 05-25-2023 Goals DatePatient GoalDesired Activity/State Functional Status TrufJemurvyfjgKghnocSeckjxyo81-67-1628Tkvbdewbvw StatusN/[facility]09-02-2024Functional StatusN/[facility]04-18-2024 Functional StatusN/[facility]04-16-2024Functional StatusN/A [facility]02-10-2023Functional statusPatient at Baseline [facility] Work Phone: [phone]onqroau statusPatient at Baseline [facility] Work Phone: [phone]preyvvu statusPatient at Baseline [facility] Work Phone: Mental Status NgttJaoeufcteoTtkinlBupbkrlt32-63-2542Mpkkhxhpv functionPatient at Baseline [facility] Work Phone: [phone]yedavz functionPatient at Baseline [facility] Work Phone: [phone]) [phone]ypcocu functionPatient at Baseline [facility] Work Phone: Clinical Notes 09-28-2015 to 08-22-2025 Note Date & PcxsGtanCqhwvokk66-58-6969 NoteED Patient Education Note Gastroenterology Nausea and [...] added (diluted fruit juice). ??? Eat bland, cbsz-js-snovto foods in small amounts as you are able. These foods include bananas, applesauce, rice, lean meats, toast, and crackers. ??? Avoid fluids that contain a lot of sugar or caffeine, such as energy drinks, sports drinks, andsoda. ??? Avoid alcohol. ??? Avoid spicy or fatty foods. General instructions ??? Take rzyw-zhj-cvooumg and prescription medicines only as told by your health care provider. ??? Drink enough fluid to keep your urine pale yellow. ??? Wash your hands often using soap and water for at least 20 seconds. If soap and water are not available, use hand cotton converter. ??? Make sure that everyone in your [...] and drinking to prevent dehydration. ??? Take radr-qxg-rqkebby and prescription medicines only as told by [...] Reviewed: 05/21/2022 Elsevier Patient Education ? 2023 [employer]. Obstetrics and Gynecology Hyperemesis Gravidarum Hyperemesis gravidarum [...] It may be associated (more content not included)...[facility]02-19-2025 Hospital Discharge instructions Patient Education 01/16/2025 20:36:16 [...] limityour activities and whether you should start zimwh-oj-fqkzhi exercises for your injury. Ice Ice your [...] provider. Document Revised: 2021 Document Reviewed: 08/04/2018 Intentio Patient Education 2020 [employer]. 01/16/2025 20:36:16 Contusion Contusion A contusion is [...] are sitting or lyingdown. General instructions Take ttvc-joq-xhsawmb and prescription medicines only as told by [...] provider. Document Revised: 05/02/2023 Document Reviewed: 05/02/2023 Intentio Patient Education 2023 [employer]. 01/16/2025 20:36:16 Fall Prevention in the Home, Adult, Wahz-gb-Chnx Fall Prevention in the Home, Adult Falls [...] Keep items that you use often in pdsy-kl-eiipd places. Lower the shelves around your home [...] of the way. Do not use floor namibian or wax that makes floors slippery. What [...] Disease Control and Prevention, STEADI: cdc.gov National Queen on Aging: jacob.nih.gov National Queen on Aging: jacob.nih.gov Contact a doctor if: [...] provider. Document Revised: 07/18/2023 Document Reviewed: 07/18/2023 Intentio Patient Education 2023 [employer]. Follow Up Care 01/16/2025 17:51:58 With:MODESTA CHAND Address: [address] [place] [phone] Business (1) When:2025 20:14:58 Comments:Call Dr for diagnosis based follow up [facility] 02-19-2025 NoteED Patient Education Note Caregiving Fall [...] Keep items that you use often in eyqs-ym-eytiv places. Lower the shelves around your home [...] the way. ??? Do not use floor namibian or wax that makes floors slippery. What [...] Control and Prevention, ANASTACIO: cdc.gov ??? National Queen on Aging: jacob.nih.gov ??? National Queen on Aging: jacob.nih.gov Contact a doctor if: [...] symptoms will go away. (more content not included)...[facility]09-04-2024 NoteED Patient Education Note Gastroenterology Hypokalemia Hypokalemia [...] such as yogurt. General instructions ? Take gcwu-brg-masftwa and prescription medicines only as told by [...] provider. Document Revised: 07/29/2022 Document Reviewed: 07/29/2022 ElseXuanyixia Patient Education ? 2023 Elsevier Inc. Nausea [...] that has water adde (more content not included)...[facility]09-03-2024 Hospital Discharge instructions Patient Education 07/30/2024 22:55:49 [...] water added (diluted fruit juice). Eat bland, vvnd-fc-aochur foods in small amounts as you are able. These foods include bananas, applesauce, rice, lean meats, toast, and crackers. Avoid fluids that contain a lot of sugar or caffeine, such as energy drinks, sports drinks, and soda. Avoid alcohol. Avoid spicy or fatty foods. General instructions Take suxe-yzz-qyalaoc and prescription medicines only as told by your health care provider. Drink enough fluid to keep your urine pale yellow. Wash your hands often using soap and water for at least 20 seconds. If soap and water are not available, use hand cotton converter. Make sure that everyone in your household [...] eating and drinking to prevent dehydration. Take mjvq-hrj-bwvxjrf and prescription medicines only as told by [...] provider. Document Revised: 05/21/2022 Document Reviewed: 05/21/2022 Intentio Patient Education 2023 [employer]. Follow Up Care 07/30/2024 19:27:35 With:FAMILIA CHAND Address: [facility] [address] [address] Business (1) When:08/02/2024 [facility] 09-02-2024 NoteED Patient Education Note Gastroenterology Nausea [...] added (diluted fruit juice). ? Eat bland, ddyl-ez-brqaig foods in small amounts as you are able. These foods include bananas, applesauce, rice, lean meats, toast, and crackers. ? Avoid fluids that contain a lot of sugar or caffeine, such as energy drinks, sports drinks, and soda. ? Avoid alcohol. ? Avoid spicy or fatty foods. General instructions ? Take ulmf-cyb-aarkjpi and prescription medicines only as told by your health care provider. ? Drink enough fluid to keep your urine pale yellow. ? Wash your hands often using soap and water for at least 20 seconds. If soap and water are not available, use hand cotton converter. ? Make sure that everyone in your [...] and drinking to prevent dehydration. ? Take knrl-vto-hefludp and prescription medicines only as told by [...] provider. Document Revised: 05/21/2022 Document Reviewed: 05/21/2022 Intentio Patient Education ? 2023 [employer].[facility] 07-30-2024 Evaluation + Plan noteExtracted from:Title:ED NoteAuthor:Dustin [...] PRN Nausea/Vomiting, # 16 tab(s), Refills(s) 0, Pharmacy:[facility]/pharmacy #[id number], 157, cm, 07/30/24 19:37:00 EDT, Height/Length Dosing, 96.1, kg, 07/30/24 19:37:00 EDT, Weight Dosing promethazine, 12.5 mg = 1 tab(s), Oral, q8hr, PRN as needed for nausea/vomiting, second line, # 10 tab(s), Refills(s) 0, Pharmacy: [facility]/pharmacy #[id number], 157, cm, 07/30/24 19:37:00 EDT, Height/Length Dosing, 96.1, kg, 07/30/24 19:37:00 EDT, Weight Dosing promethazine, 12.5 mg = 1 supp, Rectal, q8hr, PRN as needed for nausea/vomiting, 3rd line, # 6 EA, Refills(s) 0, Pharmacy: [facility]/pharmacy #[id number], 157, cm, 07/30/24 19:37:00 EDT, [...] Lipase Level Magnesium Level Saline Lock Insert [facility] 04-18-2024 Hospital Discharge instructions Patient Education [...] careprovider. Do not use recreational drugs. Take tdrj-spl-jgxpewj and prescription medicines only as told by [...] provider. Document Revised: 06/08/2022 Document Reviewed: 06/08/2022 Intentio Patient Education 2022 [employer]. 03/15/2024 13:49:41 Nausea and Vomiting, Adult Nausea [...] water added (diluted fruit juice). Eat bland, otuz-qr-sxpqeh foods in small amounts as you are able. These foods include bananas, applesauce, rice, lean meats, toast, and crackers. Avoid fluids that contain a lot of sugar or caffeine, such as energy drinks, sports drinks, and soda. Avoid alcohol. Avoid spicy or fatty foods. General instructions Take ettg-mkq-aoounwt and prescription medicines only as told by your health care provider. Drink enough fluid to keep your urine pale yellow. Wash your hands often using soap and water for at least 20 seconds. If soap and water are not available, use hand cotton converter. Make sure that everyone in your household [...] eating and drinking to prevent dehydration. Take nljc-uyd-tlandzg and prescription medicines only as told by [...] provider. Document Revised: 05/21/2022 Document Reviewed: 05/21/2022 Intentio Patient Education 2022 [employer]. Follow Up Care 03/15/2024 10:34:05 With:Kirk Serrano Address:Unknown When:03/22/2024 13:33:04 Comments:Make sure to follow-up with Dr. Serrano at the surgery clinic in 1 week as instructed. Return to the emergency room if you develop chest pain, shortness of breath or any symptoms. [facility]04-18-2024 Evaluation + Plan noteExtracted from: Title:ED NoteAuthor:August [...] CT Chest w/ Contrast eGFR Magnesium Level [facility]04-17-2024 Hospital Discharge instructions Patient Education 03/13/2024 22:27:59 Nausea and Vomiting, Adult, Nvzc-ir-Uqvc Nausea and Vomiting, Adult Nausea is feeling [...] fruit juice). ?Low-calorie sports drinks. Eat bland, dvib-uo-rnjtqn foods in small amounts as you are able, such as: ?Bananas. ?Applesauce. ?Rice. ?Low-fat (lean) meats. ?Rulo. ?Crackers. Avoid drinking fluids that have a lot of sugar or caffeine in them. This includes energy drinks, sports drinks, and soda. Avoid alcohol. Avoid spicy or fatty foods. General instructions Take ogtd-dwb-csgvubg and prescription medicines only as told by your doctor. Drink enough fluid to keep your pee (urine) pale yellow. Wash your hands often with soap and water for at least 20 seconds. If you cannot use soap and water, use hand cotton converter. Make sure that everyone in your home [...] your doctor about eating and drinking. Take tanh-hrr-rdpwomt and prescription medicines only as told by your doctor. Contact your doctor if your symptoms get worse or you have new symptoms. Keep all follow-up visits. This information is not intended to replace advice given to you by your health care provider. Make sure you discuss any questions you have with your health care provider. Document Revised: 05/21/2022 Document Reviewed: 05/21/2022 Intentio Patient Education 2022 [employer]. 03/13/2024 22:27:59 Muscle Strain, Svui-pq-Zsle Muscle Strain A muscle strain, or pulled [...] is not too tight. General instructions Take ltdq-uvh-ukzelbv and prescription medicines only as told by [...] provider. Document Revised: 02/01/2022 Document Reviewed: 02/01/2022 Intentio Patient Education 2022 [employer]. Follow Up Care 03/13/2024 17:33:30 With:MODESTA ARCHIBALD Address: [address] [place] [address] [phone] Business (1) When:03/16/2024 Comments:You can use the medications as prescribed as needed for pain, nausea. Please follow-up with your primary care doctor for further evaluation and management. Please return to the ED if you develop chest pain, difficulty breathing or if any concerning signs or symptoms. [facility]04-16-2024 Evaluation + Plan noteExtracted from: Title:ED NoteAuthor:Brandi [...] 20 tab(s), Refills(s) 0, Pharmacy: [facility]/pharmacy #[id number], 160, cm, 03/13/24 17:38:00 EDT, Height/Length Dosing, 95.5, kg, 03/13/24 17:38:00 EDT, Weight Dosing orphenadrine, 60 mg = 2 mL, Injection, IV Push, Once, Stop date 03/13/24 20:27:00 EDT, STAT, Start date 03/13/24 20:27:00 EDT, 03/13/24 20:27:00 EDT promethazine, 25 mg = 1 supp, Rectal, q6hr, PRN Nausea/Vomiting, # 6 EA, Refills(s) 0, Pharmacy: [facility]/pharmacy #[id number], 160, cm, 03/13/24 17:38:00 EDT, [...] kg, 2.06, m2 XR Chest 2 Views [facility]07-06-2023 Evaluation note* Encounter Date Diagnosis Assessment [...] May,Other specified postprocedural states (ICD-10 - Z98.890) [employer] Other 06-27-2023 Evaluation note* Encounter Date Diagnosis Assessment Notes Treatment Notes Treatment Clinical Notes Apr, Other specified postprocedural s tates (ICD-10 - Z98.890) [employer] Other 06-26-2023 Evaluation note* Encounter Date Diagnosis [...] S82.111A) Apr,re-op exam (ICD-10 - Z01.818) [employer] Other 02-10-2023 History and physical note Author Eliana Bautista [facility] January 07, 2023 2:11amNote Date/TimeFebruary 2022 5:30pmStacey Ville [id number] Hospitalist H&P Signed Patient: Pili Parikh MR#: [id number] : 2005 Acct:[id number] Age/Sex: 17 / F Adm Date: 3 Loc: Room: [address] [place] [address] Type: ADM INOo Attending Dr: Eliana Bautista MD Copies to: [facility] Anette FRANKY Stout MD~ HPI DATE [...] in the HPI or below [facility] Attestation Statement: The following information was [...] promethazine 25 mg rectal suppository 25 mg SD Q6H PRN Nausea #10 supp 01/02/23 [Rx [...] % (Auto) 19.9 % (.) 01/06/23 14:20 Garvin % (Auto) 7.4 % (.) 01/06/23 14:20 Eos % (Auto) 2.3 % (.) 01/06/23 14:20 Baso % (Auto) 0.3 % (.) 01/06/23 14:20 Nucleat RBC Rel Count 0.1 /100 WBC (0-0.5) 01/06/23 14:20 Neut # (Auto) 12.4 x10E3/uL (1.2-7.7) H 01/06/23 14:20 Lymph # (Auto) 3.5 x10E3/uL (1.20-4.8) 01/06/23 14:20 Garvin # (Auto) 1.3 x10E3/uL (0.1-1.00) H 01/06/23 [...] pH 6.5 (5.0-9.0) 01/06/23 16:10 Ur Specific [place] 1.027 (1.001-1.030) 01/06/23 16:10 Urine Protein 100 [...] needed to reflect my findings and plan. lEiana Bautista MD Documented By: Anette Stout APRN 01/06/23 1655 Signed By: <Electronically signed by FRANKY Stout> 01/06/231816 <Electronically signed by Eliana Bautista MD> 01/07/23 0211 [facility] Work Phone: 1(308) 330-332209-24-2022 Progress note Author Gregorio Carey [facility] August 21, 2022 5:01pmNote Date/TimeSept2021 5:01pmButlerville[place] [address] Hospitalist Progress Note Signed Patient: Pili Parikh MR#: [id number] : 2005 Acct:[id number] Age/Sex: 17 / F Adm Date: 2 Loc: Room: [address] [place] [address] Type: ADM IN Attending Dr: Gregorio Carey [...] alot of discomfort. She recalls that the washing machine repairer told her that in warm water against [...] 1 Gm/10 Ml Udc PO 08/22/23 06:59 TID.AC.[facility] A&P - Hospitalist Assessment/Plan (1) Intractable nausea [...] signed by Gregorio Carey DO> 08/21/22 1701 [facility] Work Phone: 1(268) 416-224909-23-2022 History and physical note Author Gregorio Carey [facility] August 20, 2022 8:17pmNote Date/TimeSeptember 2021 8:17pm[place] [address] Hospitalist H&P Signed Patient: Pili Parikh MR#: [id number] : 2005 Acct:[id number] Age/Sex: 17 / F Adm Date: 2 Loc: Room: [address] [place] [address] Type: ADM IN Attending Dr: Gregorio Carey DO Copies to: [facility] Senior Gregorio Carey DO~ HPI DATE [...] % (Auto) 11.5 % (.) 08/20/22 16:21 Garvin % (Auto) 3.7 % (.) 08/20/22 16:21 Eos % (Auto) 0.3 % (.) 08/20/22 16:21 Baso % (Auto) 0.4 % (.) 08/20/22 16:21 Neut # (Auto) 9.2 x10E3/uL (1.2-7.7) H 08/20/22 16:21 Lymph # (Auto) 1.3 x10E3/uL (1.20-4.8) 08/20/22 16:21 Garvin # (Auto) 0.4 x10E3/uL (0.1-1.00) 08/20/22 16:21 [...] <Electronically signed by Gregorio Carey DO> 08/20/222016 [facility] Work Phone: 1(447) 251-644206-19-2022 Miscellaneous Notes* Telephone Encounter - Luana Mak [...] she can find a way to [facility], she will go there. Reason for Disposition Chest pain [1] Chest pain lasts > 5 minutes AND [2] described as crushing, pressure-like, or heavy Protocols used: ABDOMINAL PAIN - WIXEO-GOGTD-PV, CHEST GQEA-YCCHU-YN documented in this encounter[facility]12-[facility]-2021 NoteHNO ID: [id number] Author: Rolando Wooten MD Service: ? Author [...] completed when applicable. 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 The patient wished to proceed. S/he was re-identified and a time out obtained. 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 Drainage [...] there were no complication. MD Rolando Cherry, [facility]11-12-2021 NoteHNO ID: [id number] Author: Rolando Wooten MD Service: ? 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 Medical Historyintermittent asthmaMedical Historylactose intoleranceMedical HistoryPOTS diag 09/2015Surgical Uynkomammjlrnpkviiw2556Wgtzxzmdliksjel History strepthroat, uri, dehydration, otitis aqwvx3668Wljclakvzdzmkgj History kkmrgysnfds7384Alyroayplswpvnl [facility] [place] [facility] hidzbswq69[facility]16- Hospitalization History3 days vomitting blood01/2017Hospitalization History vomiting, abd pain, dehydration FR07/22-07/27/2017[facility] Other Evaluation noteNo assessment information available [facility] Work Phone: Evaluation note* Diagnosis Onset Date Resolution Status Nausea & vomiting acute [facility] Work Phone: Evaluation note* Diagnosis Onset Date Resolution Status Dehydration acuteHypokalemiaacuteIntractable nausea and vomitingacuteNausea & vomitingacute [facility] Work Phone: Evaluation note* Diagnosis Onset Date Resolution Status Abdominal pain acuteAcute hypokalemiaacuteChest painacuteDehydrationacuteHypokalemiaacute HypovolemiaacuteMallory-Cotton tearacuteNausea & vomitingacute [facility] Work Phone: History and physical note Author Eliana Bautista [facility] January 07, 2023 2:11amNote Date/TimeFebruary 2022 5:30pm[place] [address] Hospitalist H&P Signed Patient: Pili Parikh MR#: [id number] : 2005 Acct:[id number] Age/Sex: 17 / F Adm Date: 3 Loc: Room: [address] [place] [address] Type: ADM INOo Attending Dr: Eliana Bautista MD Copies to: [facility] FRANKY Starkey MD~ HPI DATE OF [...] in the HPI or below [facility] Attestation Statement: The following information was [...] promethazine 25 mg rectal suppository 25 mg SD Q6H PRN Nausea #10 supp 01/02/23 [Rx [...] % (Auto) 19.9 % (.) 01/06/23 14:20 Garvin % (Auto) 7.4 % (.) 01/06/23 14:20 Eos % (Auto) 2.3 % (.) 01/06/23 14:20 Baso % (Auto) 0.3 % (.) 01/06/23 14:20 Nucleat RBC Rel Count 0.1 /100 WBC (0-0.5) 01/06/23 14:20 Neut # (Auto) 12.4 x10E3/uL (1.2-7.7) H 01/06/23 14:20 Lymph # (Auto) 3.5 x10E3/uL (1.20-4.8) 01/06/23 14:20 Garvin # (Auto) 1.3 x10E3/uL (0.1-1.00) H 01/06/23 [...] pH 6.5 (5.0-9.0) 01/06/23 16:10 Ur Specific [place] 1.027 (1.001-1.030) 01/06/23 16:10 Urine Protein 100 [...] signed by Eliana Bautista MD> 01/07/23 0211 [facility] Work Phone: Hospital course Narrative No data available for this section [facility] instructions[facility] Work Phone: Hospital Discharge instructions Additional Instructions Follow-up with your primary care doctor Return to ED if develop worsening symptoms or concernsM[facility] Work Phone: Hospital Discharge instructions Additional Instructions Follow-up with your primary care doctor Return to the ED if you develop worsening symptoms or concernsM[facility] Hospital Work Phone: Hospital Discharge instructions Additional Instructions Take Phenergan as prescribed for nausea vomiting. Take Motrin and Tylenol as needed for muscle aches and pains. Take Carafate as prescribed.[facility] Work Phone: Hospital Discharge instructions Additional [...] you should first call your surgeon at [phone] for advice. If your are unable to contact your surgeon, seek help from a hospital emergency room. [facility] Work Phone: Hospital Discharge instructions Additional [...] with your family physician as soon as possible.[facility] Work Phone: Progress note No data available for this section [facility] HospitalReason [facility] referral (narrative)No reason for referral information availableFayette County Memorial [facility] Work Phone: Summary Purpose Family [...] DATE CREATED AUTHOR AUTHOR'S ORGANIZ ATION 07/14/2018 [facility] DATE CREATED AUTHOR AUTHOR'S ORGANIZ ATION 01/04/2022 [facility] DATE CREATED AUTHOR AUTHOR'S ORGANIZ ATION 02/02/2023 [facility] DATE CREATED AUTHOR AUTHOR'S ORGANIZ ATION 07/30/2024 [facility] DATE CREATED AUTHOR AUTHOR'S ORGANIZ ATION 08/02/2024 [facility] DATE CREATED AUTHOR AUTHOR'S ORGANIZ ATION 08/05/2024 [facility] DATE CREATED AUTHOR AUTHOR'S ORGANIZ ATION 01/18/2025 [facility] DATE CREATED AUTHOR AUTHOR'S ORGANIZ ATION 08/30/2025 [facility] DATE CREATED AUTHOR AUTHOR'S ORGANIZ ATION 08/31/2025 [facility] DATE CREATED AUTHOR AUTHOR'S ORGANIZ ATION 09/06/2025 [facility] Source Comments (unrecognize d section and content) In the event this informatio n is protected by the Federal Confidentiality of Alcohol and Drug Abuse Patient Records regulations: The Federal rules restrict any use of the information to criminally investigate or prosecute any alcohol or drug abuse patient.[facility] Reason for Visit (unrecogniz ed section and content) ReasonCommentsAbdominal Pain Care Teams (unrecognized sec tion and content) Team Status: Inactive Member Role Status Dates Services [facility] Primary Care Provider Ac latesha Chand MATERIAL ENGINEER-CAttending ProviderActive Team Status: Inactive Member Role Status Dates Services [facility] Primary Care Provider Active Modesta Chand NP-CAttenca ProviderActive Team Status: Inactive Member Role Status Dates Services [facility] Primary Care Provider Active Ulises Wiley ProviderActive Team Status: Inactive Member Role Status Dates Services [facility] Primary Care Provider Active Kahlil Gardiner ProviderActive Team Status: Inactive Member Role Status Dates Services [facility] Primary Care Provider Active Josh Lopezrjoy ProviderActive Team Status: Inactive Member Role Status [facility] Services [facility] Primary Care Provider Active Kahlil Saldaña ProviderActive Team Status: Inactive Member Role Status [facility] Primary Care Provider Active Kahlil David ProviderActive Team Status: Active Member Role Status [facility] Primary Care Provider Ac tive Team Status: Inactive Member Role Status [facility] Primary Care Provider Ac Nicci Spicer ProviderActive Team Status: Inactive Member Role Status [facility] Primary Care Provider Ac francove Stevie Arnold Jr ProviderActive Team Status: Inactive Member Role Status [facility] Primary Care Provider Ac francove Kahlil David ProviderActive Team Status: Active Member Role Status [facility] Primary Care Provider Ac Josh Rajputrjoy ProviderActiveGregorio Carey , DOAdmit Provider, Attending ProviderActive Team Status: Inactive Member Role Status [facility] Primary Care Provider Ac francove Josh Davidrjoy ProviderActiveGregorio Carey , DOAdmit Provider, Attending ProviderActive Team Status: Inactive Member Role Status [facility] Primary Care Provider Ac Kahlil Rai ProviderActive Team Status: Inactive Member Role Status Dates Art Bianchi DO Emergency Provider Active [facility] ProviderActive Team Status: Inactive Member Role Status [facility] Primary Care Provider Ac Kahlil Hilliard ProviderActive Team Status: Inactive Member Role Status [facility] Primary Care Provider Ac latesha Bianchi DOKenarjoy ProviderActive Team Status: Inactive Member Role Status [facility] Primary Care Provider Active Stevie Munoz ProviderActive Team Status: Active Member Role Status [facility] Services [facility] Primary Care Provider Active Team Status: Inactive Member Role Status [facility] Primary Care Provider Active Kahlil Houston ProviderActive Team Status: Active Member Role Status [facility] Primary Care Provider Active Sejal Torres ProviderActiveSuzette [...] BE BASED ON THE PRIMARY CLINICAL RECORDS. [facility]. provides no warranty or guarantee of the accuracy or completeness of information in this document.
[2025-10-11 13:24] LABS: Hematocrit 40.7 % (36.0-48.0); Hemoglobin 14.6 g/dL (12.0-16.0); Immature Granulocytes Abs Auto 0.11 10^3/uL (0.00-0.03); Immature Granulocytes Pct Auto 0.5 % (0.0-0.5); Lymphocytes Absolute Auto 1.6 10^3/uL (1.2-3.8); Mean Corpuscular HGB Conc 35.9 g/dL (29.9-35.2); Mean Corpuscular Hemoglobin 30.7 pg (26.7-34.0); Mean Corpuscular Volume 85.7 fL (81.0-99.0); Platelet Count 277 10^3/uL (150-450); Red Blood Count 4.75 10^6/uL (4.20-5.40); White Blood Count 21.0 10^3/uL (4.0-11.0)
[2025-10-11] MEDS: 0.9 % SODIUM CHLORIDE 1,000 ML 1000 ML IV (13:35)
[2025-10-11] MEDS: DIPHENHYDRAMINE HCL 50 MG/ML VIAL 25 MG IVP (13:35)
[2025-10-11 13:41] LABS: Alanine Aminotransferase 35 U/L (14-59); Albumin Globulin Ratio 1.0; Albumin Level 4.4 g/dL (3.4-5.0); Alkaline Phosphatase 73 U/L (46-116); Anion Gap 19.4; Aspartate Amino Transferase 25 U/L (15-37); Blood Urea Nitrogen 23.0 mg/dL (7.0-18.0); Calcium 10.3 mg/dL (8.5-10.1); Carbon Dioxide 26.3 mmol/L (21.0-32.0); Chloride 96 mmol/L (98-107); Estimated GFR (African America >60 (>=60 mL/min/1.73m^2); Estimated GFR (Non-African Ame >60 (>=60 mL/min/1.73m^2); Globulin 4.2 g/dL; Glucose 128 mg/dL (74-106); Sodium 139 mmol/L (136-145); Total Protein 8.6 g/dL (6.4-8.2)
[2025-10-11 13:46] LABS: Potassium 2.7 mmol/L (3.5-5.1)
--- NOTE | 2025-10-11 13:54 | ECG_ITS ---
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
[2025-10-11] MEDS: ACETAMINOPHEN 325 MG TABLET 650 MG PO (14:40)
[2025-10-11] MEDS: POTASSIUM BICARBONATE/CIT 25 MEQ TABLET EFF 50 MEQ PO (14:40)
--- NOTE | 2025-10-11 14:50 | PC.NURSE ---
cup of water given. able to keep down pills and potassium drink is almost gone.
--- NOTE | 2025-10-11 15:10 | ED.NAVMDI1 ---
HPI - Nausea/Vomiting/Diarrhea General Chief complaint: Nausea/Vomiting/Diarrhea Stated complaint: NAUSEA/VOMITING -12 WEEKS PREG Time Seen by Provider: 10/11/25 12:44 Source: patient Mode of arrival: walk-in Limitations: no limitations History of Present Illness HPI Narrative: Patient is very known to us presenting to the ER with nausea and vomiting that been going on for the last few days , is complaining of no abdominal pain mostly just nausea and vomiting and not tolerating anything p.o.. She is 12 weeks and she was evaluated yesterday for similar complaint but she left AMA before she was provided with any fluid the patient is denying any abdominal pain or any vaginal bleeding She already established her INTERVENTIONAL CARDIOLOGIST care as outpatient ultrasound was done to evaluate the and it was normal The patient is complaining of generalized body ache Related Data Previous Rx's ?Medication ?Instructions ?Recorded ondansetron 4 mg disintegrating 4 mg PO Q8H PRN nausea and 10/11/25 tablet vomiting 48 hours #14 tabs potassium bicarbonate-citric acid 25 meq PO DAILY #7 ea 10/11/25 25 mEq effervescent tablet (Effer-K) promethazine 25 mg tablet 25 mg PO QID PRN nausea and 10/11/25 vomiting #20 tabs Allergies Allergy/AdvReac Type Severity Reaction Status Date / Time metoclopramide (From Reglan) AdvReac Intermediate facial Verified 10/11/25 12:36 drooping Review of Systems ROS Status of ROS 10 or more systems reviewed and unremarkable except as noted in history and below [facility] Medical History (Updated 10/11/25 @ 15:31 by Zohreh Mosquera MD) Marijuana use ?F12.90 - Cannabis use, unspecified, uncomplicated (ICD-10) Asthma ?J45.909 - Unspecified asthma, uncomplicated (ICD-10) Leukocytosis ?D72.829 - Elevated white blood cell count, unspecified (ICD-10) Bipolar 1 disorder ?F31.9 - Bipolar disorder, unspecified (ICD-10) Migraine ?G43.909 - Migraine, unspecified, not intractable, without status migrainosus (ICD-10) POTS (postural orthostatic tachycardia syndrome) ?G90.A - Postural orthostatic tachycardia syndrome [POTS] (ICD-10) Cyclic vomiting syndrome ?R11.15 - Cyclical vomiting syndrome unrelated to migraine (ICD-10) Cyclic vomiting syndrome ?R11.15 - Cyclical vomiting syndrome unrelated to migraine (ICD-10) Fall ?W19.XXXA - Unspecified fall, initial encounter (ICD-10) Fracture of tibial plateau ?S82.143A - Displaced bicondylar fracture of unspecified tibia, initial encounter for closed fracture (ICD-10) Surgical History History of appendectomy ?Z90.49 - Acquired absence of other specified parts of digestive tract (ICD-10) Family History Father Family history of stroke Family history of diabetes mellitus Family history of cancer Family history of hypertension Family history of CHF (congestive heart failure) Grandfather Family history of stroke Grandmother Family history of myocardial infarction Mother Family history of diabetes mellitus Family history of cancer Social History (Updated 05/03/25 @ 14:23 by Emili Benitez) Within the past year, how often did you have a drink containing alcohol: never Score interpretation: A score less than 3 is consistent with normal alcohol consumption. Smoking status: Current every day smoker Non-prescribed substance use: cannabis (any form) Previous occupational history: [employer] Highest level of school completed/degree received: high school graduate Little interest or pleasure in doing things: not at all Feeling down, depressed, or hopeless: not at all Feel stressed/tense/nervous/anxious/difficulty sleeping: not at all Do you think of yourself as: straight/heterosexual Gender Identity: female Exam Narrative Exam Narrative: Nurses notes and vital signs reviewed and patient is not hypoxic. General: Well-appearing and in no apparent distress. Skin: Warm, dry, no pallor noted. No rash. Head: Normocephalic, atraumatic. Neck: Supple, non-tender. Cardiovascular: Regular Rate and Rhythm without murmur, gallop or rub. Respiratory: No accessory muscle use or respiratory distress. Lungs are clear to auscultation, no wheezing, rales or rhonchi Chest Wall: no tenderness Back: No midline thoracic or lumbar vertebral tenderness. No CVA tenderness Musculoskeletal: normal ROM, no calf or popliteal tenderness, no lower extremity edema/swelling GI: Abdomen is soft, non-distended. Normal bowel sounds. No masses appreciated. No tenderness to palpation. No rebound, guarding, or rigidity noted. Neurological: A&O x4. No cranial nerve dysfunction observed. No truncal ataxia. Moves all extremities. Sensation intact. Psychiatric: Cooperative and interactive. Normal mood and affect. Constitutional Vital Signs, click to edit/add: Last Vital Signs Temp 98 F 10/11/25 12:36 Pulse 58 L 10/11/25 12:36 Resp 20 10/11/25 12:36 BP 115/69 10/11/25 12:36 Pulse Ox 100 10/11/25 12:36 Course Vital Signs Vital signs: Vital Signs Temperature 98 F 10/11/25 12:36 Pulse Rate 58 L 10/11/25 12:36 Respiratory Rate 20 10/11/25 12:36 Blood Pressure 115/69 10/11/25 12:36 Pulse Oximetry 100 10/11/25 12:36 Temperature 98 F 10/11/25 12:36 Pulse Rate 58 L 10/11/25 12:36 Respiratory Rate 20 10/11/25 12:36 Blood Pressure 115/69 10/11/25 12:36 Pulse Oximetry 100 10/11/25 12:36 MDM - Nausea/Vomiting/Diarrhea MDM Narrative Medical decision making narrative: CBC shows leukocytosis although it was found chronically in her workup before and there is no source of infection that is detected at the moment The patient's chemistry shows some hypokalemia with a potassium of 2.7 she also have a history of chronic hypokalemia She did get 2 L of IV fluid in the ER in addition to Zofran IV as well as Benadryl and she was provided with p.o. potassium The patient had an EKG that showed bradycardia with a heart rate of 46 with no hyperkalemic changes Right now the patient presentation is mostly secondary to possibly nausea vomiting due to but also it was noted that the patient really had a history of cyclic vomiting and multiple presentations for the nausea and vomiting management before that which could have been exacerbated by the I was initially waiting for the urinalysis while getting the patient IV fluid when the patient requested to leave and she was provided with Phenergan and p.o. potassium to go home as well as Zofran With instruction to follow-up with her OB doctor as outpatient The patient to follow-up with the primary care within 2 to 3 days and to come back to the ER in case of any worsening of the current symptoms or any new symptoms or concerns Lab Data Labs: Lab Results 10/11/25 Range/Units 13:10 WBC 21.0 H (4.0-11.0) 10^3/uL RBC 4.75 (4.20-5.40) 10^6/uL Hgb 14.6 (12.0-16.0) g/dL Hct 40.7 (36.0-48.0) % MCV 85.7 (81.0-99.0) fL MCH 30.7 (26.7-34.0) pg MCHC 35.9 H (29.9-35.2) g/dL RDW 12.9 (11.0-15.0) % Plt Count 277 (150-450) 10^3/uL MPV 10.6 (9.5-13.5) fL Neut % (Auto) 87.1 H (43.0-75.0) % Lymph % (Auto) 7.5 L (20.5-60.0) % [place] % (Auto) 4.7 (1.7-12.0) % Eos % (Auto) 0.0 L (0.9-7.0) % Baso % (Auto) 0.2 (0.2-2.0) % Neut # (Auto) 18.3 H (1.4-6.5) 10^3/uL Lymph # (Auto) 1.6 (1.2-3.8) 10^3/uL [place] # (Auto) 1.0 H (0.3-0.8) 10^3/uL Eos # (Auto) 0.0 (0.0-0.7) 10^3/uL Baso # (Auto) 0.0 (0.0-0.1) 10^3/uL Abs Immat Gran (auto) 0.11 H (0.00-0.03) 10^3/uL Imm/Tot Granulo (auto) 0.5 (0.0-0.5) % Sodium 139 (136-145) mmol/L Potassium 2.7 L* (3.5-5.1) mmol/L Chloride 96 L (98-107) mmol/L Carbon Dioxide 26.3 (21.0-32.0) mmol/L Anion Gap 19.4 BUN 23.0 H (7.0-18.0) mg/dL Creatinine 0.83 (0.55-1.02) mg/dL Est GFR ( Amer) >60 (>=60 mL/min/1.73m^2) Est GFR (Non-Af Amer) >60 (>=60 mL/min/1.73m^2) BUN/Creatinine Ratio 27.7 Glucose 128 H (74-106) mg/dL Calcium 10.3 H (8.5-10.1) mg/dL Total Bilirubin 0.8 (0.2-1.0) mg/dL AST 25 (15-37) U/L ALT 35 (14-59) U/L Alkaline Phosphatase 73 (46-116) U/L Total Protein 8.6 H (6.4-8.2) g/dL Albumin 4.4 (3.4-5.0) g/dL Globulin 4.2 g/dL Albumin/Globulin Ratio 1.0 Discharge Plan Discharge Chief Complaint: Nausea/Vomiting/Diarrhea Clinical Impression: Hypokalemia, Nausea and vomiting during Patient Disposition: Home, Self-Care Time of Disposition Decision: 15:31 Condition: Good Mode of Transportation: Private Vehicle Prescriptions / Home Meds: New ondansetron 4 mg tablet,disintegrating 4 mg PO Q8H PRN (Reason: nausea and vomiting) 2 Days Qty: 14 0RF promethazine 25 mg tablet 25 mg PO QID PRN (Reason: nausea and vomiting) Qty: 20 0RF Effer-K 25 mEq tablet, effervescent 25 meq PO DAILY Qty: 7 0RF Print Language: Mongolian Instructions: Hypokalemia (ED), Acute Nausea and Vomiting (DC) Referrals: Physician,Non-Staff, MD [Primary Care Provider] - 1 week
[2025-10-11 15:38] LABS: Glucose Urine UA NEGATIVE (NEGATIVE)
[2025-10-11 15:58] LABS: Cast Seen? NONE SEEN #/LPF (NONE SEEN)
[2025-10-11 15:59] LABS: Urine Culture Indicated YES-FRMC
[2025-10-11 16:00] LABS: Crystals Seen? Seen #/HPF (None Seen)
== END 2025-10-11 15:40 | disposition home or self-care (01) ==
PROVIDERS: Emergency Provider Emergency Medicine
DX: O21.9 Vomiting of pregnancy, unspecified (principal); O99.281 Endocrine, nutritional and metabolic diseases complicating pregnancy, first trimester; E87.6 Hypokalemia; O99.331 Smoking (tobacco) complicating pregnancy, first trimester; F17.200 Nicotine dependence, unspecified, uncomplicated; Z3A.12 12 weeks gestation of pregnancy
CPT/HCPCS: 36415; 80053; 81001; 85025; 87086; 93005; 96361; 96374; 96375; 96376; 99284; J1200; J2405

== ENCOUNTER 2025-11-02 17:52 | Emergency (ER) | payer OTHER, SELFPAY ==
--- OUTSIDE RECORDS SUMMARY | 2025-05-22 04:00 | XMS_ITS ---
Author Organization [email or web address] es Address [address] [place] [address] Care Team Providers Care Garbage Worker Name Role Phone Modesta Lira Primary Care Provider Kelsey Espino [phone] REASON FOR VISIT nexplanon removal Social History Sex Assigned At : Social History Observation Description Sex Assigned At Female Encounters Encounter Location Date Provider Diagnosis [address] [place] [address] 05/22/2025 Kelsey Espino Plan Of Treatment No Information Progress Notes * PILI SEGURA ADOB: [birth year] (20 yo F)Acc No.[id number]:05/22/2025 progress note Patient: PILI PENALOZA A :?Kelsey ZhouOB:2005???Age:20 Y???Sex: FemaleDate:05/22/2025Phone:[phone]:[address] [facility], [place]Owb:Modesta Lira Subjective: * Chief Complaints: * N explanon removal Billing Information: * Procedure Codes: * Electronic signature of Kelsey Espino NP on 11/02/2025 at 06:49 PM ESTSign off status: Pending * Provider: Raf Espino Date: 0 05/22/2025 Generated for Printing/Faxing/eTransmitting on:?11/02/2025 06:49 PM EST
--- OUTSIDE RECORDS SUMMARY | 2025-10-31 08:56 | XMS_ITS | Continuity of Care Document ---
Author Organization [facility] Address [address] [place] [address] Phone Care Team Providers Care Commodity Supervisor Name Role Phone Kenzie FNP-, Kelsey Unavailable Unavailabl e Allergies, Adverse Reactions, Alerts Substance Reaction Status Criticality No Known Allergies Active No Inform ation Medications Medication Instructions Dosage Effective Dates (start - stop) Status Comments 28 mg iron-800 mcg tablet Take one tablet once daily - Active ondansetron 4 mg disintegrating tablet take 1 tablet by oral route every 6 hours as needed for nausea. Place on top of the tongue where they will dissolve, then swallow - Active promethazine 25 mg tablet take 1 tablet by oral route every 4 - 6 hours as needed 25 MG - No Longer Active ProAir RespiClick 90 mcg/actuation breath activated inhale 2 puff by inhalation route every 4 - 6 hours as needed 180 MCG - No Longer Active Procedures Procedure Date URINALYSIS NONAUTO W/O SCOPE OFFICE/OUTPATIENT VISIT, NEW OFFICE/OUTPATIENT VISIT, EST INFLUENZA ASSAY W/OPTIC Oral Hygiene Instruction Resin Composite 3s; Posterior 9 Prophylaxis Adult Topical Mel Of Flouride Varnish 019 Sealant Excluded Moderate Risk Oral Hygiene Instruction Bitewings Four Films Comp Oral Eval New/estab Patient 2018 Sealant Per Tooth Sealant Per Tooth Sealant Per Tooth Sealant Per Tooth Sealant Per Tooth Sealant Per Tooth Sealant Per Tooth High Risk Nutrit Couns For Control Of [place] Dis May Oral Hygiene Instruction OFFICE/OUTPATIENT VISIT, RUST HEPB VACC PED/ADOL 3 DOSE IM HIB VACCINE, PRP-T, IM DTAP VACCINE, < 7 YRS, IM MMR VACCINE, SC Advance Directives Directive Yes / No Effective Date File Name No Information Encounters Encounter Description Practice Location Reason(s) For Visit Diagnoses Date Provider Providers Copied on Encounter OFFICE/OUTPAT IENT VISIT, [facility], [address] [place] [address], [id number], tel:[phone] [facility] routine (chief complaint) Supervision of normal first in second [id number] weeks gestation of Kenzie Cole. [address] [place] [address], [id number], [place]. tel:[phone] OFFICE/OUTPAT IENT VISIT, [facility], [address] [place] [address], [id number], tel:[phone] EHOVE Problem visit (chief complaint)U RI (chief complaint) Body mass index [BMI] 36.0-36.9, adultUpper respiratory tract infection, unspecified typeMaterial hardship due to limited financial resources, not elsewhere classified Gilberto Byers. [address] [place] [address], [id number], [place]. tel:[phone] [facility], [address] [place] [address], [id number], tel:[phone] Dental Clinic Encounter for screening for dental disorders Adelfo Bell. [address], [place], [id number], [place]. tel:[phone] [facility], [address], [place], [id number], tel:[phone] Dental Clinic filling (chief complaint) Encounter for screening for dental disorders Adelfo Bell. [address], [place], [id number], [place]. tel:[phone] [facility], [address], [place], [id number], [place] tel:[phone] Dental Clinic Encounter for screening for dental disorders Shanti Holly. [address], [place], [id number], [place]. tel:[phone] [facility], [address] [place] [address], [id number], tel:[phone] Dental Clinic Dental New (chief complaint) Encounter for screening for dental disorders Shanti Holly. [address], [place], [id number], [place]. tel:[phone] OFFICE/OUTPAT IENT VISIT, EST [facility], [address], [place], [id number], [place] tel:[phone] [facility] No Information Albaro Barlow. [address], [place], [id number], [place]. tel:[phone] Family History Family Member Type Diagnosis Age [...] name Insurance type Covered constitution party ID Authoriza tion(s) [employer] Medicaid CFC [id number] Medicaid Wrap - [facility] [place] [id number] Social History Type Description Quantity Date Captured Comments Alcohol Use Details Unknown Caffeine Use Details Unknown Tobacco Use Status Current non-smoker Smoking Status Never smoker Non-Smoking Tobacco Use Details : No Details Available : No Details Available [id number] SexFemalePregnancyYes - Patient is currently [id number] OrientationStraight or heterosexualGender IdentityFemale Chief Complaint And Reason For Visit From encounter dated '10/31/2025 13:56'. routine (chief complaint) Reason For Referral Reason For Referral No Information Plan Of Treatment Date Type Action Status Goal Hep A. Due on du e Goal Tdap. Due on due Goal Hepatitis C screening. Due o n due Goal Depression screening. Due on due Goal Tdap Vaccine. Due on 2024 due Goal Influenza vaccine. Due on due Goal PAP. Due on due Goal Unhealthy drug use screening . Due on due Goal RLP. Due on due Goal PRAPARE ASSESSMENT. Due on D due Goal Hep A. Due on du e Goal PRAPARE ASSESSMENT. Due on N due Goal Tdap Vaccine. Due on 2024 due Goal RLP. Due on due Goal Depression screening. Due on due Goal Influenza vaccine. Due on due Goal Unhealthy drug use screening . Due on due Goal PAP. Due on due Goal Hepatitis C screening. Due o n due Goal Tdap. Due on due Goal Dietary management education , guidance, and counseling completed Referral Ordered: CHW (related to Material hardship due to limited financial resources, not elsewhere classified) [id number], [id number] Order: Lab OrderInheritest CF/SMA Panel (2 Genes) ([id number]), Collected on: , Sent on: [id number] Order: Lab NpgfdRdfumzjN33 PLUS Core + SCA ([id number]), Collected on: , Sent on: [id number] Order: Lab OrderAFP, Serum, Open Spina Bifida ([id number]), Collected on: , Sent on: [id number] History Of Present Illness Encounter Date Complaint History Of Prese nt Illness routine Problem visit Pt reports that she is 13 weeks and was seeing Kelsey Espino at [facility] for the . Pt reports cough, runny nose and sore throat for about 4-5 day, unsure what to take. Dave Dejesus RN URI The symptoms beg an 5 days ago. The symptoms have remained unchanged. The client presents with chills, cough (cough is non-productive), headache, nausea and vomiting. The client does not present with abdominal pain, anorexia, arthralgia, back pain, diarrhea, earache or fever. The client had a fair response to increased fluids and a fair response to rest. The client denies change in appetite, change in sleep cycle, constipation, diaphoresis, dizziness, dyspnea, hoarseness, lightheadedness, neck stiffness, pruritus, rash and reduced urine output. Additional information: Above noted. States symptoms started 5 days ago with pain in throat; cough, runny nose/congestion. States chills, no fever. Denies any exposure to any known ill contacts. SHANTANU Adams. filling filling Dental New Dental New Functional Status Date Functional Assessmen t No Information Instructions Date Instruction Additional Infor domitila 1. Increase fluid in take2. Take decongestant for symptoms as instructed3. Use ibuprofen or Tylenol as needed for discomfort4. Stop/decrease/avoid cigarette smoking5. Call if fever or any change in condition6. Go to ER for any shortness of breath or worsening of symptoms Related to Upper respiratory tract infection, unspecified type Dietary management e ducation, guidance, and counseling Related to Body mass index [BMI] 36.0-36.9, adult Giving encouragement to exercise Related to Body mass index [BMI] 36.0-36.9, adult Assessments Type Assessment Date assessment Supervision of normal first preg leah in second trimester assessment 15 weeks gestation of Patient Care Teams Name Effective Dates (start - stop) Status Members No Information
[2025-11-02 17:58] VITALS: BP 124/87; PULSE 88; TEMP 37.4; O2SAT 100; BMI 36.6
--- NOTE | 2025-11-02 18:08 | US_ITS ---
[place] [id number] Patient Name: PILI SEGURA MRN: [id number] date: 2005 Sex: F Assigned Patient Location: ED.MAIN Current Patient Location: ED.MAIN Accession/Order Number: [id number] Exam Date: 11/02/2025 19:05 Report Date: 11/03/2025 08:18 At the request of: YA MAHAN Procedure: US OB >= 14 weeks Fetus Obstetric ultrasound INDICATION: Bleeding Comparison 09/20/2025 FINDINGS: Single live intrauterine presentation with regions presentation and longitudinal lie. Placenta is posterior location. heart rate 153 beats per minutes. somatic motion is documented. Cervix is closed 4.5 cm. AUA 16 weeks and 4 days. Gestational age 18 weeks and 0 days. Estimated weight 160.6 grams. US/US OB >= 14 weeks Fetus IMPRESSION: Single live intrauterine measuring approximately 16 weeks and 4 days. Impression dictated by: Ankit Archer M.D. 11/03/2025 8:18 AM Dictation Location: Health: [employer] Electronically authenticated by: [id number] Y Date: 11/03/2025 08:18
--- NOTE | 2025-11-02 18:10 | ED.PREGNANC1 ---
HPI - General Chief complaint: OB/Uterine Contractions Stated complaint: bLEEDING 15 WEEKS Time Seen by Provider: 11/02/25 17:53 Source: patient Mode of arrival: walk-in Limitations: no limitations History of Present Illness HPI Narrative: Patient is a 20-year-old female G2, approximately 17 weeks 6 days gestation after last menstrual cycle reported on June 29. Patient sees health department for OB care states she had a visit there 2 days ago with heart tones present. She reports being sexually active 3 days ago and today noting some pink twinge with wiping. She denies any blood coming from her stool or rectum. She denies any other concerning vaginal discharge she has no abdominal pain but is concerned as she has had hyperemesis gravidarum in her first trimester and POTS syndrome that makes her concerning for carrying her . She denies any current nausea or vomiting. Mother is present at bedside she denies any chest pain or shortness of breath. She denies any abdominal cramping or vaginal discharge she has not had to wear a pad for any current bleeding but does not know her blood type. Onset (ago): day(s) (1) Pain Consistency: Reports intermittent Location: Reports pelvis Vaginal bleeding: Reports other (pink twinge with wiping) Date of last menstrual period: 06/29/25 Patient : Yes Gestational age based on last menstrual period: 17 wks 6 days OB History - Current : Reports hyperemesis care: good care Related Data : 2 Para: 0 Total number of abortions (spontaneous and elective): 1 Previous Rx's ?Medication ?Instructions ?Recorded ondansetron 4 mg disintegrating 4 mg PO Q8H PRN nausea and 10/11/25 tablet vomiting 48 hours #14 tabs potassium bicarbonate-citric acid 25 meq PO DAILY #7 ea 10/11/25 25 mEq effervescent tablet (Effer-K) promethazine 25 mg tablet 25 mg PO QID PRN nausea and 10/11/25 vomiting #20 tabs Allergies Allergy/AdvReac Type Severity Reaction Status Date / Time metoclopramide (From Reglan) AdvReac Intermediate facial Verified 11/02/25 17:58 drooping Review of Systems ROS Constitutional Denies: fever, chills or change in weight Eyes Denies: change in vision Ears, nose, mouth, and throat Denies: throat pain or neck pain Cardiovascular Denies: chest pain, palpitations or edema Respiratory Denies: shortness of breath, cough or wheezing Gastrointestinal Denies: abdominal pain, nausea or vomiting Genitourinary Denies: painful urination or urinary frequency Musculoskeletal Denies: back pain, neck pain or extremity pain Integumentary/Breast Denies: rash Neurological Denies: headache, numbness in extremities or weakness in extremities Psychiatric Denies: anxiety or mood swings [facility] Medical History (Updated 11/02/25 @ 19:46 by KALLI Reese) Marijuana use ?F12.90 - Cannabis use, unspecified, uncomplicated (ICD-10) Asthma ?J45.909 - Unspecified asthma, uncomplicated (ICD-10) Leukocytosis ?D72.829 - Elevated white blood cell count, unspecified (ICD-10) Bipolar 1 disorder ?F31.9 - Bipolar disorder, unspecified (ICD-10) Migraine ?G43.909 - Migraine, unspecified, not intractable, without status migrainosus (ICD-10) POTS (postural orthostatic tachycardia syndrome) ?G90.A - Postural orthostatic tachycardia syndrome [POTS] (ICD-10) Cyclic vomiting syndrome ?R11.15 - Cyclical vomiting syndrome unrelated to migraine (ICD-10) Cyclic vomiting syndrome ?R11.15 - Cyclical vomiting syndrome unrelated to migraine (ICD-10) Fall ?W19.XXXA - Unspecified fall, initial encounter (ICD-10) Fracture of tibial plateau ?S82.143A - Displaced bicondylar fracture of unspecified tibia, initial encounter for closed fracture (ICD-10) Surgical History History of appendectomy ?Z90.49 - Acquired absence of other specified parts of digestive tract (ICD-10) Family History Father Family history of stroke Family history of diabetes mellitus Family history of cancer Family history of hypertension Family history of CHF (congestive heart failure) Grandfather Family history of stroke Grandmother Family history of myocardial infarction Mother Family history of diabetes mellitus Family history of cancer Social History (Updated 05/03/25 @ 14:23 by Emili Benitez) Within the past year, how often did you have a drink containing alcohol: never Score interpretation: A score less than 3 is consistent with normal alcohol consumption. Smoking status: Current every day smoker Non-prescribed substance use: cannabis (any form) Previous occupational history: [employer] Highest level of school completed/degree received: high school graduate Little interest or pleasure in doing things: not at all Feeling down, depressed, or hopeless: not at all Feel stressed/tense/nervous/anxious/difficulty sleeping: not at all Do you think of yourself as: straight/heterosexual Gender Identity: female Exam Narrative Exam Narrative: Nurse's notes and vital signs reviewed and patient is not hypoxic. General: The patient appears well and in no apparent distress. Patient is resting comfortably in cart sitting up speaking with her mother. Skin: Warm, dry, no pallor noted. Head: Normocephalic, atraumatic Neck: Supple, trachea midline, no tenderness, no lymphadenopathy Ears, nose, mouth, and throat: External exam unremarkable no pharyngeal erythema, clear voice. Cardiovascular: Regular rate and rhythm Respiratory: Patient is in no distress, no accessory muscle use, lungs are clear to auscultation, no wheezing, rales, or rhonchi. Chest wall: No tenderness Musculoskeletal: Normal ROM, no tenderness, no swelling, no edema in the lower legs. GI: Normal bowel sounds, no tenderness to palpation, no masses appreciated. No rebound, guarding, or rigidity noted. Neurological: Alert and oriented ?4 Psychiatric: Cooperative, anxious about new onset symptoms in her . Constitutional Vital Signs, click to edit/add: Last Vital Signs Temp 99.3 F 11/02/25 17:58 Pulse 88 11/02/25 17:58 Resp 16 11/02/25 17:58 BP 124/87 11/02/25 17:58 Pulse Ox 100 11/02/25 17:58 O2 Del Method Room Air 11/02/25 17:58 Course Vital Signs Vital signs: Vital Signs Temperature 99.3 F 11/02/25 17:58 Pulse Rate 88 11/02/25 17:58 Respiratory Rate 16 11/02/25 17:58 Blood Pressure 124/87 11/02/25 17:58 Pulse Oximetry 100 11/02/25 17:58 Oxygen Delivery Method Room Air 11/02/25 17:58 Temperature 99.3 F 11/02/25 17:58 Pulse Rate 88 11/02/25 17:58 Respiratory Rate 16 11/02/25 17:58 Blood Pressure 124/87 11/02/25 17:58 Pulse Oximetry 100 11/02/25 17:58 Oxygen Delivery Method Room Air 11/02/25 17:58 MDM - OB/Uterine Contractions MDM Narrative Medical decision making narrative: Patient presents with concerns of a pink tinge material with wiping coming from her vagina. Patient currently estimated at 17 weeks 6 days. She reports being sexually active 3 days prior denies any abnormal discharge or dysuria. She has had a prior care with ultrasounds confirming intrauterine . She is unsure of her blood type. We will assess her blood type and get a baseline CBC in case symptoms progress. technical training coordinator will be consulted for evaluation. heart tones-154 Blood type a positive, CBC reviewed. Only some blood in urine no signs or symptoms of infection. Patient's preliminary ultrasound shows no complications heart rate 160 bpm Patient will be discharged home to follow-up with her PECAN GATHERER for further evaluation we have recommended some pelvic rest. Patient is thankful and no further concerns or questions. The patient is to followup with primary care physician in next 2-3 days or to return to the emergency department should any of the signs or symptoms worsen or new symptoms develop. Patient had questions answered. The patient agrees with the following Diagnosis and Treatment plan and the patient will be discharged home. Lab Data Attestation: I reviewed the patient's lab results. Labs: Lab Results 11/02/25 11/02/25 Range/Units 19:00 19:08 WBC 12.9 H (4.0-11.0) 10^3/uL RBC 3.82 L (4.20-5.40) 10^6/uL Hgb 11.8 L (12.0-16.0) g/dL Hct 35.1 L (36.0-48.0) % MCV 91.9 (81.0-99.0) fL MCH 30.9 (26.7-34.0) pg MCHC 33.6 (29.9-35.2) g/dL RDW 13.2 (11.0-15.0) % Plt Count 203 (150-450) 10^3/uL MPV 9.8 (9.5-13.5) fL Neut % (Auto) 77.2 H (43.0-75.0) % Lymph % (Auto) 15.8 L (20.5-60.0) % Stanley % (Auto) 4.4 (1.7-12.0) % Eos % (Auto) 2.0 (0.9-7.0) % Baso % (Auto) 0.2 (0.2-2.0) % Neut # (Auto) 10.0 H (1.4-6.5) 10^3/uL Lymph # (Auto) 2.0 (1.2-3.8) 10^3/uL Stanley # (Auto) 0.6 (0.3-0.8) 10^3/uL Eos # (Auto) 0.3 (0.0-0.7) 10^3/uL Baso # (Auto) 0.0 (0.0-0.1) 10^3/uL Abs Immat Gran (auto) 0.05 H (0.00-0.03) 10^3/uL Imm/Tot Granulo (auto) 0.4 (0.0-0.5) % Urine Color Lt. yellow (YELLOW) Urine Clarity Clear (CLEAR) Urine pH 6.0 (5.0-9.0) Ur Specific [place] 1.025 (1.005-1.025) Urine Protein Negative (NEG/TRACE) mg/dL Urine Glucose (UA) Negative (NEGATIVE) mg/dL Urine Ketones Negative (NEGATIVE) mg/dL Urine Occult Blood Moderate A (NEGATIVE) Urine Nitrite Negative (NEGATIVE) Urine Bilirubin Negative (NEGATIVE) Urine Urobilinogen 0.2 (0.2-1.0) EU/dL Ur Leukocyte Esterase Negative (NEGATIVE) Blood Type A Positive Discharge Plan Discharge Chief Complaint: OB/Uterine Contractions Clinical Impression: Vaginal bleeding during Patient Disposition: Home, Self-Care Time of Disposition Decision: 19:45 Condition: Good Prescriptions / Home Meds: No Action ondansetron 4 mg tablet,disintegrating 4 mg PO Q8H PRN (Reason: nausea and vomiting) 2 Days Qty: 14 0RF promethazine 25 mg tablet 25 mg PO QID PRN (Reason: nausea and vomiting) Qty: 20 0RF Effer-K 25 mEq tablet, effervescent 25 meq PO DAILY Qty: 7 0RF Print Language: Cymro Instructions: at 15 to 18 Weeks (ED) Additional Instructions: Contact your OBGYN at health department to follow up in 3-5 days recommend pelvic rest- Blood Type is A positive Referrals: Physician,Non-Staff, MD [Primary Care Provider] - 1 week
--- OUTSIDE RECORDS SUMMARY | 2025-11-02 18:49 | XMS_ITS | Clinical Summary ---
Author Organization [facility] Address [address] [place] [address] Care Team Providers Care Frozen Food Selector Name Role Phone Unavailable Primary Care Provider Unavailabl e Social History Tobacco UseTypesPacks/DayYears UsedDateSmoking Tobacco: Never Assessed CommentsUnknownSex and Gender InformationValueDate RecordedSex Assigned at Not on fileLegal QyuUvohec36/15/2023 7:10 PM EDTGender IdentityNot on fileSexual OrientationNot on file Last Filed Vital Signs Vital SignReadingTime TakenCommentsBlood Rxumcpto261/7402/17/2022 12:00 PM EDT Pulse--Temperature--Respiratory Rate--Oxygen Saturation--Inhaled Oxygen Concentration--Rswolz15 kg (161 lb)02/17/2022 12:00 PM CXZCtwdat288.5 cm (5' 2 ) 02/17/2022 12:00 PM EDTBody Mass Index29.45002/17/2022 12:00 PM EDT Plan of Treatment Not on file Insurance
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
--- OUTSIDE RECORDS SUMMARY | 2025-11-02 18:51 | XMS_ITS | CCD ---
Author Organization [facility] Care Team Providers Care Nib Inspector Name Role Phone Calvin, Mere T Unavailable [...] Luisa Unavailable Unavailable Unavailable [facility] Provider DO Art Bianchi Emergency Provider DO Ender Donovan Emergency Provider DO Gilda Arguellorick M Emergency Provider Matthew DO Gilson Emergency Provider MILY Chand Attending Pr ovider MD Brennen Britt Attending Provider [facility] Prov ider [facility] Primary Care Provider FRANKY Rivera Emergency Provider MD Colten Fry Jr Emergency Provider DO Matthew Gilson Emergency Provider Aurelio, DO Gregorio Admit Provider Aurelio DO Gregorio Attending Provider [facility] Prov ider FRANKY Rivera Emergency Provider MD Colten Fry Jr Emergency Provider Matthew DO Gilson Emergency Provider Aurelio DO Gregorio Admit Provider [phone] Aurelio, DO Gregorio Attending Provider [phone] MILY Chand Attending Pr ovider TuDO Gilda pittsrick M Emergency Provider [facility] Prov ider FRANKY Rivera Emergency Provider MD Colten Fry Jr Emergency Provider DO Matthew Gilson Emergency Provider [phone] Aurelio, DO Gregorio Admit Provider Aurelio DO Gregorio Attending Provider MILY Chand Attending Pr ovider DO Ravi Arguello Emergency Provider DO Art Bianchi Emergency Provider DO Robert Bolanos Emergency Provider [facility] Primary Care Provider [phone] MD Corey Newberry Emergency Provider [facility] Primary Care Prov ider DO Federico Randolph Emergency Provider KATE Damian Emergency Provider MD Eliana Bautista Admit Provider [phone] MD Eliana Bautista Attending Provider SANDRO, DR VU Primary Care Unavailable DALIA ., AUSTIN Admitting Unavailable DALIA ., AUSTIN Attending Unavailable DALIA ., AUSTIN Consulting Unavailable DIAB ., IRWIN Admitting Unavailable ETHAN ., IRWIN Attending Unavailable SANDRO, DR VU Primary Care Unavailable KIA ARVIZU Consulting Unavailable ETHAN ., IRWIN Consulting Unavailable Colten Miller Unavailable [facility] Primary Care Provider MILY Chand Attending Pr ovider MD Colten Miller Attending Provider [phone] [facility] Primary Care Provider DO Ravi Arguello Emergency Provider MODESTA ARCHIBALD Primary Care Physician [facility] Primary Care Provider [phone] MD Femi Benitez Emergency Provider [phone] Cresencio Abel Attending Unavailable MODESTA ARCHIBALD Primary Care Unavailable MODESTA ARCHIBALD Primary Care Unavailable August Bermudez Attending Unavailable MODESTA ARCHIBALD Primary Care Unavailable DO Isaak Francis Attending Unavailable [facility] Primary Care Provider MD Ania Watson Emergency Provider MODESTA ARCHIBALD Primary Care Unavailable August Bermudez Attending Unavailable Cresencio Abel Attending Unavailable MODESTA ARCHIBALD Primary Care Unavailable MODESTA CHAND Primary Care Physician [phone] August Bermudez Attending Unavailable August Bermudez Attending Unavailable [facility] Primary Care Provider [phone] Rd Brown PA-C Emergency Provider Makayla Monk DO Attending Provider [phone] Jasmeet Dahl MD Attending Provider [phone] Drew Steinberg MD Attending Provider [phone] Federico Randolph Attending Unavailable August Bermudez Attending Unavailable Pradeep Guthrie Attending Unavailable Pradeep Guthrie Attending Unavailable NO FAMILY, PHYSICIAN Primary Care Provider Unava ilable Kelsey Espino APRN Attending Provider Makayla Monk Attending Unavailable Makayla Monk Admitting Unavailable Drew Steinberg Attending Unavailable Drew Steinberg Admitting Unavailable NO FAMILY, PHYSICIAN Primary Care Unavailable Kelsey Espino Attending Unavailable Kelsey Espino Admitting Unavailable [facility] Primary Care Unavaila Rd Marin Attending Unavailable Rd Brown Admitting Unavailable Jasmeet Dahl Admitting Unavailable Jasmeet Dahl Attending Unavailable Allergies Allergy ClassificationReported Allergen(s)Allergy TypeDate of OnsetReaction(s) Facility (16 sources)Haloperidol; Translations: [Haloperidol]Drug [id number] Unknown Reaction, [facility]opTri[facility] (18 sources)Metoclopramide; Translations: [Metoclopramide]Drug [id number] Unknown (qualifier value)[facility] (6 sources)Haloperidol; Translations: [Haldol]Drug AllergyThe [facility] (6 sources)Iothalamate; Translations: [Reglan]Drug AllergyThe [facility] Medications Current Medications MedicationDrug Class(es)DatesSig (Normalized)Sig (Original)acetaminophen 325 mg / HYDROcodone bitartrate 5 mg oral tablet (20 sources)Opioid AgonistStart: 03-13-2024 End: 69-71-0175Xvcqr 325 mg-5 mg oral tablet 1 tab(s), Oral, q6hr for pain for 3 day(s), 7 tab(s), Refill(s) 0, [facility]/pharmacy #[id number], 160, cm, 03/13/24 17:38:00 EDT, Height/Length Dosing, 95.5, kg, 03/13/24 17:38:00 EDT, Weight Dosing Start Date: 03/13/24 Stop Date: 03/16/24 Status: OrderedStart: 52-48-2509qmgz 15 mL by mouth every eight hours as needed for painHYDROcodone-acetaminophen (HYCET) 7.5- 325 mg/15 mL oral liquid Indications: Abscess, peritonsillar Take 15 mL by mouth every 8 hours as needed for pain. 120 mL 0 10/09/2021 ActiveStart: 12-15-2019 End: 81-14-7304nkpk 1 tablet by mouth every six hours as needed for pain Hydrocodone-Acetaminophen ([place]) 5-325 mg tablet Discontinued 1 TAB PO Q6H as needed for pain 6 2 December 15, 2019 December 31, 2019 1:37pmStart: 12-15-2019 End: 53-23-9351Efggs: 04-20-2019 End: 05-06-0840vxfc 1 tablet by mouth every six hours as needed for pain Hydrocodone-Acetaminophen 5-325 mg Tablet Discontinued 1 TAB PO Q6H as needed for Pain 20 April 20, 2019 May 05, 2019 8:42pmStart: 04-20-2019 End: 77-86-7149Umuve: 02-19-2019 End: 61-67-7087rbrj 1 tablet by mouth twice daily as needed for painHydrocodone- Acetaminophen ([place]) 5-325 mg tablet Discontinued 1 TAB PO Twice daily as needed for pain 6 February 19, 2019 March 08, 2019 3:53pmStart: 02-19-2019 End: 74-65-5556Kpjjbwb on above:Take 15 mL by mouth every 8 hours as needed for pain.cephalexin 500 mg oral capsule (20 sources)Cephalosporin AntibacterialStart: 53-91-9039eavo 1 capsule by mouth every eight hoursStart: 31-82-2841swly 1 capsule by mouth every eight hours Cephalexin 500 MG 1 capsule Orally every 8 hrs for 2 days Apr, Active Start: 02-06-2022 End: 00-28-0442ytom 1 tablet by mouth four times dailyCephalexin 250 mg tablet Discontinued 250 MG PO Four times daily 24 06February 06, 2022 1:00am 2021 8:15pmStart: 08-20-2021 End: 94-90-8249hipe 1 capsule by mouth twice dailyCephalexin 500 mg capsule Discontinued 500 MG PO Twice daily August 20, 2021 12:00am September 05, 2021 11:25pmStart: 06-01-2021 End: 60-16-1114qjqq 2 capsules by mouth every twelve hoursCephalexin 500 mg Capsule Discontinued 1000 MG PO Q12H 40 June 01, 2021 12:00am July 19, 2021 2:07pmStart: 06-01-2021 End: 54-58-1731udyc 1000 mg by mouth every twelve hoursCephalexin Discontinued 1000 MG PO Q12H 40 June 01, 2021 12:00am July 19, 2021 2:07pmStart: 06-01-2021 End: 81-85-6004Qicre: 04-14-2021 End: 21-74-6272uvcy 2 capsules by mouth twice dailyCephalexin 500 mg capsule Discontinued 1000 MG PO Twice daily April 14, 2021 12:00am May 10, 2021 11:08amStart: 04-14-2021 End: 84-42-2555swyz 1000 mg by mouth twice dailyCephalexin Discontinued 1000 MG PO Twice daily April 14, 2021 12:00am May 10, 2021 11:08amStart: 04-14-2021 End: 96-63-8546Iamza: 10-07-2020 End: 49-21-3947uneg 1 capsule by mouth twice dailyCephalexin (Keflex) 500 mg capsule Discontinued 500 MG PO Twice daily 16 09October 07, 2020 1:00am January 12, 2021 1:34pmStart: 03-23-2018 End: 75-02-4743wnur 1 capsule by mouth four times dailyCephalexin (Keflex) 500 mg Capsule Discontinued 500 MG PO Four times daily 40 March 23, 2018 12:00am April 05, 2018 10:48pmStart: 03-23-2018 End: 67-61-4984elmxxhqzejakkeo hydrochloride 5 mg oral tablet (1 source)Muscle RelaxantStart: 01-16-2025 End: 39-68-9560iwnh 1 tablet by mouth three times dailycyclobenzaprine 5 mg Tab 5 mg = 1 tab(s), Oral, TID, X 7 day(s), # 21 tab(s), Refills(s) 0, Pharmacy: [facility]/pharmacy #[id number], 157, cm, 01/16/25 17:56:00 EST, Height/Length Dosing, 95, kg, 01/16/25 17:56:00 EST, Weight Dosing Start Date: 01/16/25 Stop Date: 01/23/25 Status: OrderedEtonogestrel (3 sources)ProgestinNexplanon Activemethocarbamol 500 mg oral tablet (2 sources)Muscle RelaxantStart: 03-13-2024 End: 91-24-9666zujp 1 tablet by mouth three times dailyRobaxin 500 mg Tab 500 mg = 1 tab(s), Oral, TID, X 3 day(s), # 9 tab(s), Refills(s) 0, Pharmacy: [facility] /pharmacy #[id number], 160, cm, 03/13/24 17:38:00 EDT, Height/Length Dosing, 95.5, kg, 03/13/24 17:38:00 EDT, Weight Dosing Start Date: 03/13/24 Stop Date: 03/16/24 Status: Orderednaproxen 500 mg oral tablet (20 sources)Nonsteroidal Anti-inflammatory DrugStart: 12-26-4355xtyj 1 tablet by mouth twice daily as needed for painnaproxen 500 mg Tab 500 mg = 1 tab(s), Oral, BID, PRN Pain, with food, # 20 tab(s), Refills(s) 0, Pharmacy: [facility]/pharmacy #[id number], 157, cm, 01/16/25 17:56:00 EST, Height/Length Dosing, 95, kg, 01/16/25 17:56:00 EST, Weight Dosing Start Date: 01/16/25 Status: Ordered Start: 02-19-2019 End: 97-11-6103jtxc 1 tablet by mouth twice daily as needed for painNaproxen 500 mg tablet Discontinued 500 MG PO Twice daily as needed for pain February 19, 2019 12:00am March 08, 2019 3:53pm administer with food or milkondansetron 4 mg disintegrating oral tablet (20 sources)Serotonin-3 Receptor AntagonistStart: 89-25-1080Oasxp: 11-09-2022 End: 56-31-1136jqhb 1 tablet by mouth every eight hours as needed for nausea and vomitingOndansetron 8 mg tablet,disintegrating Discontinued 8 MG PO Q8H as needed for nausea and vomiting 10 November 09, 2022 1:00am October 28, 2024 10:59pmStart: 11-07-2022 End: 65-30-8674Pmwvhaqsygy Hcl 4 mg tablet Discontinued 4 MG PO every 6 to 8 hours as needed for nausea and vomiting November 07, 2022 1:00am November 09, 2022 4:12pmStart: 08-20-2022 End: 65-93-6412Gjixtabohoi 4 mg tablet,disintegrating Discontinued 4 MG PO every 6 to 8 hours as needed for Pycjxj41 August 20, 2022 12:00am January 06, 2023 5:46pmStart: 05-14-2022 End: 84-27-7940wpza 1 tablet by mouth every eight hours as needed for nausea and vomitingOndansetron 4 mg tablet,disintegrating Discontinued 4 MG PO Q8H as needed for nausea and vomiting 72 May 14, 2022 12:00am August 18, 2022 12:32pmStart: 02-07-2022 End: 35-23-6307Aqbdfnweyqp 4 mg Tablet,Disintegrating Discontinued 4 MG PO every 6 to 8 hours as needed for Iueeuz54 February 07, 2022 1:00am March 08, 2022 8:15pmStart: 07-15-2021 End: 07-05-4493clay 1 tablet by mouth every eight hours as needed for nausea and vomitingOndansetron Hcl (Zofran) 4 mg tablet Discontinued 4 MG PO Q8H as needed for nausea and vomiting 10 July 15, 2021 12:00am July 19, 2021 2:07pm Start: 04-14-2021 End: 33-11-9313pnrx 1 tablet by mouth every eight hours as needed for nausea and vomitingOndansetron 8 mg tablet,disintegrating Discontinued 8 MG PO Q8H as needed for nausea and vomiting 10 April 14, 2021 12:00am July 19, 2021 2:07pmStart: 10-02-2020 End: 75-24-3584gogt 1 tablet by mouth every eight hours as needed for nausea and vomitingOndansetron 4 mg tablet,disintegrating Discontinued 4 MG PO Q8H as needed for nausea and vomiting 3Nov2019 1:00am January 12, 2021 1:35pmStart: 09-23-2020 End: 29-11-2292dnbb 1 tablet by mouth every eight hours as needed for nausea and vomitingOndansetron Hcl 4 mg tablet Discontinued 4 MG PO Q8H as needed for nausea and vomiting September 23, 2020 12:00am January 12, 2021 1:35pm Start: 06-25-2020 End: 22-61-8212fxgc 1 tablet by mouth three times daily as needed for nausea and vomitingOndansetron 4 mg tablet,disintegrating Discontinued 4 MG PO Three times daily as needed for nausea and vomiting 10 June 25, 2020 12:00am July 19, 2020 2:22pmStart: 01-03-2020 End: 97-65-5909vvms 1 tablet by mouth every eight hours as needed for nausea and vomitingOndansetron Hcl (Zofran) 4 mg tablet Discontinued 4 MG PO Q8H as needed for nausea and vomiting 6 2February 2019 1:00am February 19, 2020 6:54pm Start: 10-25-2019 End: 97-77-5854Ogzxhctfejf 4 mg tablet,disintegrating Discontinued 4 MG PO every 6 to 8 hours as needed for nauseaand vomiting April 23, 2020 12:00am May 19, 2020 4:07amStart: 09-30-2019 End: 98-70-4369armt 1 tablet by mouth four times daily as needed for nausea and vomitingOndansetron Hcl (Zofran) 4 mg tablet Discontinued 4 MG PO Four times daily as needed for nausea andvomiting September 30, 2019 12:00am October 24, 2019 10:46pmStart: 09-30-2019 End: 35-91-1319Ehgww: 06-24-2019 End: 67-50-1231tnpz 1 tablet by mouth every six hours as needed for nausea and vomitingOndansetron 4 mg tablet,disintegrating Discontinued 4 MG PO Q6H as needed for nausea and vomiting June 24, 2019 12:00am September 03, 2019 8:25pmStart: 06-24-2019 End: 21-21-7424Arklh: 05-02-2019 End: 60-56-5238Erpecskfxfj 8 mg tablet,disintegrating Discontinued 8 MG PO EVERY 8-12 HOURS as needed for nausea and vomiting June 02, 2019 12:00am September 03, 2019 8:25pmStart: 05-02-2019 End: 95-95-6731kkig 1 tablet by mouth three times daily as needed for nausea and vomitingOndansetron 8 mg tablet,disintegrating Discontinued 8 MG PO Three times daily as needed for nausea and vomiting May 02, 2019 12:00am September 03, 2019 8:25pmStart: 02-19-2019 End: 47-98-1858fjqo 1 tablet by mouth every eight hours as needed for nausea and vomitingOndansetron 4 mg tablet,disintegrating Discontinued 4 MG PO Q8H as needed for nausea and vomiting February 19, 2019 12:00am March 08, 2019 3:53pmStart: 12-28-2018 End: 79-35-2821vimj 1 tablet by mouth three times daily as needed for nausea and vomitingOndansetron Hcl (Zofran) 8 mg Tablet Discontinued 8 MG PO Three times daily as needed for Nausea And Vomiting December 28, 2018 1:00am May 05, 2019 8:42pmStart: 09-04-2018 End: 43-76-9491azey 1 tablet by mouth every eight hours as needed for nausea and vomitingOndansetron (Zofran Odt) 4 mg tablet,disintegrating Discontinued 4 MG PO Q8H as needed for nausea and vomiting 9 September 04, 2018 12:00am October 16, 2018 4:08pmStart: 08-29-2018 End: 77-37-7234ljbv 1 tablet by mouth every eight hoursOndansetron (Zofran Odt) 4 mg tablet,disintegrating Discontinued 4 MG PO Q8H 9 August 29, 2018 1 2:00am August 31, 2018 12:00am September 01, 2018 12:02amStart: 03-27-2018 End: 48-49-6467hbec 1 tablet by mouth every four hours for nauseaOndansetron (Zofran Odt) 4 mg Tablet,Disintegrating Discontinued 4 MG PO Q4H as needed for Nausea March 27, 2018 12:00am April 06, 2018 12:29am administer first dose 30 minutes before start of emetogenic chemotherapyStart: 03-27-2018 End: 95-86-7144Clchc: 01-03-2018 End: 59-70-6839Fdunidfmjub (Zofran Odt) 4 mg tablet,disintegrating Discontinued 8 MG PO Q8H as needed for nausea and vomiting 9 3 January 03, 2018 1:00am January 17, 2018 3:10amStart: 01-03-2018 End: 48-76-3601Qfufp: 10-03-2017 End: 59-39-7019fvor 1 tablet by mouth every eight hours as needed for nausea Ondansetron (Zofran Odt) 4 mg tablet,disintegrating Discontinued 4 MG PO Q8H as needed for nausea October 03, 2017 1:00am October 06, 2017 1:12amStart: 10-03-2017 End: 17-13-9997csjx 1 tablet by mouth every eight hours [...] meq extended release oral tablet (20 sources)Start: 28-57-2859jhnv 1 tablet by mouth twice dailyStart: 08-22-2022 End: 23-50-5277ktmm 1 capsule by mouth once dailyPotassium Chloride 10 mEq capsule, extended release Discontinued 10 MEQ PO Daily 09 06August 22, 2022 12:00am November 09, 2022 4:12pmStart: 04-26-2018 End: 75-94-2227pubg 20 mEq by mouth once dailyPotassium Chloride 20 mEq packet Discontinued 20 MEQ PO Daily April 26, 2018 12:00am May 08, 2018 6:56pm promethazine hydrochloride 12.5 mg oral tablet (20 sources)PhenothiazineStart: 65-40-8763hosc 1 tablet by mouth every six hours as needed for nauseapromethazine 12.5 mg oral tablet 12.5 mg = 1 tab(s), Oral, q6hr, PRN for nausea/vomiting, # 10 tab(s), Refills(s) 0, Pharmacy: [facility]/pharmacy #[id number], 157, cm, 01/16/25 17:56:00 EST, Height/Length Dosing, 95, kg, 01/16/25 17:56:00 EST, Weight Dosing Start Date: 01/16/25 Status: OrderedStart: 07-30-2024 take 1 tablet by mouth every eight hours as needed for nauseapromethazine 12.5 mg oral tablet 12.5 mg = 1 tab(s), Oral, q8hr, PRN as needed for nausea/vomiting,second line, # 10 tab(s), Refills(s) 0, Pharmacy: [facility]/pharmacy #[id number], 157, cm, 07/30/24 19:37:00 EDT, Height/Length Dosing, 96.1, kg, 07/30/24 19:37:00 EDT, Weight Dosing Start Date: 07/30/24 Status: OrderedStart: 07-30-2024 take 12.5 mg rectal route every eight hours as needed for nauseaPhenergan 12.5 mg Supp 12.5 mg = 1 supp, Rectal, q8hr, PRN as needed for nausea/vomiting, 3rd line,# 6 EA, Refills(s) 0, [id number], cm, 07/30/24 19:37:00 EDT, Height/Length Dosing, 96.1, kg, 07/30/24 19:37:00 EDT, Weight Dosing Start Date: 07/30/24 Status: OrderedStart: 05-25-2023 End: 56-93-3762Phlqjuxmxmrt 25 mg tablet Discontinued 12.5 MG PO Three times daily as needed for nausea and vomiting May 25, 2023 8:37am October 28, 2024 10:59pmStart: 36-95-7029exmt 12.5 mg by mouth three times dailyPromethazine Active 12.5 MG PO Three times daily May 25, 2023 8:37amStart: 01-02-2023 End: 44-30-2721Zyyjmviywkyo 25 mg suppository Discontinued 25 MG MS Q6H as needed for Nausea January 02:00am October 28, 2024 10:59pmStart: 12-31-2022 End: 87-27-4547awlw 1 tablet by mouth three times daily as needed for nausea and vomitingPromethazine 25 mg tablet Discontinued 25 MG PO Three times daily as needed for nausea and lccmyikq50 January 07, 2023 1:00am May 25, 2023 8:36amStart: 05-15-2022 End: 69-90-6970jjmr 1 tablet by mouth three times daily as needed for nausea Promethazine 25 mg tablet Discontinued 25 MG PO Three times daily as needed for Nausea May 15, 2022 12:00am August 18, 2022 12:33pmStart: 02-09-2022 End: 43-83-7952Mcxlzudwxwne 25 mg suppository Discontinued 25 MG MS Q6H as needed for nausea and vomiting 2021 12:00am March 08, 2022 8:15pmStart: 09-30-2021 End: 31-91-2946wxxs 3 tablets by mouth three times daily as needed for nausea and vomitingPromethazine 12.5 mg tablet Discontinued 12.5 MG PO Three times daily as needed for nausea and vomiting 15 5 February 07, 2022 1:00am March 08, 2022 8:15pm 3 doses during day; last dose no later than 4 hr before bedtime Start: 09-30-2021 End: 80-06-7731xtsc 3 tablets by mouth twice daily as needed for nausea and vomitingPromethazine 12.5 mg tablet Discontinued 12.5 MG PO Twice daily as needed for nausea and vomiting 2020 12:00am February 06, 2022 11:25am 3 doses during day; last dose no later than 4 hr before bedtimeStart: 09-30-2021 End: 81-78-7728Zzqczzaeagbt 12.5 mg suppository Discontinued 12.5 MG MS Once September 30, 2021 12:00am 2020 9:34pmStart: 09-30-2021 End: 15-99-0861Acsiqfraomgf Discontinued 12.5 MG MS Once September 30, 2021 12:00am October 08, 2021 9:34pmStart: 09-30-2021 End: 89-34-8268Vyamu: 04-23-2020 End: 34-53-4464hmek 1 tablet by mouth every six hours as needed for nausea and vomitingPromethazine 12.5 mg tablet Discontinued 12.5 MG PO Q6H as needed for nausea and vomiting April 23, 2020 12:00am June 25, 2020 5:37pmStart: 03-21-2020 End: 87-17-6216Itqsmcbgeenx 25 mg tablet Discontinued 12.5 MG PO Every 8 hours as needed for nausea and vomiting March 21, 2020 12:00am June 25, 2020 5:37pmStart: 03-21-2020 End: 03-87-0955xvri 12.5 mg by mouth every eight hoursPromethazine Discontinued 12.5 MG PO Every 8 hours March 21, 2020 12:00am June 25, 2020 5:37pm Start: 03-21-2020 End: 58-61-1518Rxgqf: 05-10-2019 End: 78-83-1284Sjmzmdenskkk (Phenergan) 25 mg suppository Discontinued 25 MG MS Q4H as needed for nausea and vomiting May 10, 2019 12:00am September 03, 2019 8:25pmStart: 03-08-2019 End: 72-07-8020jxei 1 tablet by mouth every four to six hours as needed for nausea and vomitingPromethazine 25 mg tablet Discontinued 25 MG PO EVERY 4-6 HOURS as needed for nausea and vomiting March 08, 2019 12:00am March 23, 2019 5:49pmStart: 02-13-2018 End: 59-21-7868Ucwahotirmbl (Phenergan) 25 mg suppository Discontinued 25 MG MS Q8H as needed for nausea and vomiting February 13, 2018 12:00am March 13, 2018 10:44pmStart: 01-03-2018 End: 29-49-5766Avnujawnraeu 25 mg suppository Discontinued 25 MG MS Q6H as needed for Nausea April 23, 2018 6:04pmOctober 16, 2018 4:08pmStart: 10-03-2017 End: 24-03-1553hpgy 1 tablet by mouth every twelve hoursPromethazine 25 tablet Discontinued 25 MG PO Q12H October 03, 2017 1:00am April 06, 2018 12:30am Start: 08-24-2016 End: 66-86-4384armp 1 tablet by mouth every six hours as needed for nausea and vomitingPromethazine 25 mg tablet Discontinued 25 MG PO Q6H as needed for nausea and vomiting August 19, 2022 12:00am August 19, 2022 8:05pmZofran ODT 4 mg Tab-Dis (2 sources)Start: 23-61-0313qzbl 1 tablet by mouth every eight hours as needed for nauseaZofran ODT 4 mg Tab-Dis 4 mg = 1 tab(s), Oral, q8hr, PRN Nausea/Vomiting, # 16 tab(s), Refills(s) 0, Pharmacy: [facility]/pharmacy #[id number], 157, cm, 07/30/24 19:37:00 EDT, Height/Length Dosing, 96.1, kg, 07/30/24 19:37:00 EDT, Weight Dosing Start Date: 07/30/24 Status: Ordered Completed/Discontinued Medications MedicationDrug Class(es)DatesSig (Normalized)Sig (Original)acetaminophen 325 mg / oxyCODONE hydrochloride 5 mg oral tablet (15 sources)Opioid AgonistStart: 05-25-2023 End: 23-77-2393mjmj 1 tablet by mouth twice dailyOxycodone-Acetaminophen 5-325 mg tablet Discontinued 5 - 325 TAB PO 2 times daily May 25, 2023 12:00am October 28, 2024 10:59pmStart: 55-92-4012ziti 1 tablet by mouth every four to six hours as needed for painPercocet 5-325 MG 1 tablet as needed for pain Orally up to every 4-6 hrs for 5 days SANTO: [id number] Apr, Activetake 1 tablet by mouth every six hoursoxyCODONE-Acetaminophen 5-325 MG 1 tablet as needed Orally every 6 hrs [id number] 200 actuat albuterol 0.09 mg/actuat metered dose inhaler (20 sources)beta2-Adrenergic AgonistStart: 08-20-2021 End: 41-48-5103Ibxycvncd Sulfate 90 mcg/actuation HFA aerosol inhaler Discontinued 2 INH INHALATION Q6H as needed for shortness of breath or wheezing August 20, 2021 12:00am September 05, 2021 11:25pm administer with spacer Start: 08-20-2021 End: 78-38-6015Ogiui: 05-05-2019 End: 65-32-9795rajf 1 puff(s) by inhalation every four to six hours as needed for wheezingAlbuterol Sulfate (Proventil Hfa) 90 mcg/actuation Hfa Aerosol Inhaler Discontinued 2 PUFF INHALATION EVERY 4-6 HOURS as needed for Shortness Of Breath Or Wheezing May 05, 2019 12:00am September 03, 2019 8:24pm with spacerStart: 05-05-2019 End: 71-92-4501Qhcgy: 12-21-2017 End: 95-69-2883kkkp 1 puff(s) by inhalation every four to six hours as needed for wheezingAlbuterol Sulfate 90 mcg/actuation Hfa Aerosol Inhaler Discontinued 2 PUFF INHALATION EVERY 4-6 HOURS as needed for Shortness Of Breath Or Wheezing December 21, 2017 1:00am July 19, 2021 2:07pmStart: 12-21-2017 End: 63-96-1638fuvk 1 puff(s) by inhalation every four to six hoursAlbuterol Sulfate Discontinued 2 PUFF INHALATION EVERY 4-6 HOURS December 21, 2017 12:00am July 19, 2021 1:07pmStart: 12-21-2017 End: 84-02-3834ixbe 1 puff(s) by inhalation every four to six hoursAlbuterol Sulfate Discontinued 2 PUFF INHALATION EVERY 4-6 HOURS December 21, 2017 1:00am July 19, 2021 2:07pmStart: 00-94-5235kjpx 2 puff(s) by inhalation every four hours as needed for wheezingAlbuterol Sulfate HFA 108 (90 Base) MCG/ACT 2 puffs as needed Inhalation every 4 hrs prn for wheezing for 5 days PRN Jul, ActiveAlbuterol Sulfate 90 mcg/actuation Hfa Aerosol Inhaler (3 sources)Start: 12-21-2017 End: 01-89-7077bkva 1 puff(s) by inhalation every four to six hours as needed for wheezingAlbuterol Sulfate 90 mcg/actuation Hfa Aerosol Inhaler Discontinued 2 PUFF INHALATION EVERY 4-6 HOURS as needed for Shortness Of Breath Or Wheezing December 21, 2017 1:00am July 19, 2021 2:07pmStart: 12-21-2017 End: 62-00-6996sace 1 puff(s) by inhalation every four to six hours as needed for wheezingAlbuterol Sulfate 90 mcg/actuation Hfa Aerosol Inhaler Discontinued 2 PUFF INHALATION EVERY 4-6 HOURS as needed for Shortness Of Breath Or Wheezing December 21, 2017 12:00am July 19, 2021 1:07pmamitriptyline hydrochloride 25 mg oral tablet (20 sources)Tricyclic AntidepressantStart: 04-23-2018 End: 46-54-3595xzry 10 mg by mouth at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 702501-42-3284MzxsjtoxWtepsspbzvysb gastroenteritis (20 sources)Gastroenteritis; Translations: [Noninfective gastroenteritis and colitis, unspecified]90-48-0573UudwjryyAaffsoognnr chest pain (20 sources)Chest pain; Translations: [Chest pain, unspecified]01-06-2023 EpisodicNutritional deficiencies (1 source)Vitamin D deficiency, unspecified; Translations: [Vitamin D deficiency, unspecified]Onset: 41-27-2797YaroturOleh wounds of extremities (20 sources)Laceration of left wrist; Translations: [Laceration without foreign body of left wrist, initial encounter]97-52-6203TiqzkjklChsb wounds of head; neck; and trunk (20 sources)Laceration - injury; Translations: [Laceration]63-11-4354Vyobgsvw Other aftercare (20 sources)Surgical follow-up; Translations: [Encounter for removal of sutures] 56-50-3772MhwttpaoMpiba aftercare (1 source)Removal of sutures done; Translations: [Encounter for removal of sutures]86-12-7709HjucprzhWayjg circulatory disease (3 sources)Orthostatic hypotension; Translations: [Orthostatic hypotension] EpisodicOther complications of (20 sources)Nausea and vomiting; Translations: [Vomiting of , unspecified]Onset: 520413-09-3596YkttvbomDflio complications of (5 sources)Vomiting of , unspecified; Translations: [Nausea and vomiting during ]46-19-7459RiwzdjndCeoyx connective tissue disease (14 sources)Muscle pain; Translations: [Myalgia, unspecified site]12-31-2022 EpisodicOther disorders of stomach and duodenum (20 sources)Nonulcer dyspepsia; 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]08-22-2022 EpisodicOther disorders of stomach and duodenum (2 sources)Cannabis hyperemesis syndrome co-occurrent and due to cannabis abuse; Translations: [Cannabis hyperemesis syndrome concurrent with and due to cannabis abuse]56-43-7531SlieshhcSdeme ear and sense organ disorders (20 sources)Otitis externa; Translations: [Unspecified otitis externa, unspecified ear]23-96-0656TybuetvMglof gastrointestinal disorders (20 sources)Diarrhea; Translations: [Diarrhea, unspecified]76-20-8190Gkeqmesy Other infections; including parasitic (20 sources)Personal history of other infectious and parasitic diseases; Translations: [History of 2019 novel coronavirus disease (COVID-19)]10-07-2020 EpisodicOther injuries and conditions due to external causes (20 sources)Minor head injury; Translations: [Unspecified injury of head, initial encounter]10-11-3626LkyqdqscZhqxn liver diseases (1 source)Fatty (change of) liver, not elsewhere classified; Translations: [Fatty (change of) liver, not elsewhere classified]Onset: 87-56-0323CsehhxwQoqso lower respiratory disease (20 sources)Cough; Translations: [Cough]16-42-5328FkrhofqiJfafd nervous system disorders (20 sources)Acute abdominal pain; Translations: [Other acute postprocedural pain]94-77-4432GfkemobuJddwe and delivery including normal (20 sources); Translations: [Encounter for supervision of normal , unspecified, unspecified trimester]Onset: EpisodicOther screening for suspected conditions (not mental disorders or infectious disease) (1 source)Imaging result abnormal; Translations: [Abnormal findings on diagnostic imaging of other specified body structures]Onset: 66-08-7768Cvrkrxp Other skin disorders (4 sources)Follicular disorder, unspecified; Translations: [FOLLICULAR DISORDER UNSPECIFIED]Onset: 89-81-6837BwaguphmSnmiq upper respiratory disease (20 sources)Bleeding from nose; Translations: [Epistaxis]42-79-8472IsobrefzZelay upper respiratory infections (20 sources)Upper respiratory infection; Translations: [Acute upper respiratory infection, unspecified]53-92-6506EnkmcvzaRwqzfo media and related conditions (20 sources)Otitis media; Translations: [Otitis media, unspecified, unspecified ear]69-21-6817GuuxuhtsBuaypcj cyst (20 sources)Cyst of ovary; Translations: [Unspecified ovarian cyst, unspecified side]83-06-2900BwjvfntnCttrlgai; pneumothorax; pulmonary collapse (1 source)Interstitial emphysema of lung; Translations: [Interstitial emphysema] Onset: 38-72-9073QttugnlyPvmtdsicv by other medications and drugs (20 sources)Poisoning by unspecified drugs, medicaments and biological substances, accidental (unintentional), initial encounter; Translations: [Overdose in pediatric patient]94-34-3586TvakpjeyBvfykjih codes; unclassified (20 sources)Left against medical advice; Translations: [Procedure and treatment not carried out because of patient's decision for other reasons]05-16-2022 EpisodicResidual codes; unclassified (1 source)Procedure and treatment not carried out because of patient's decision for other reasons; Translations: [PROC AND TX NOT CARRIED OUT PT OTH RSN]Onset: 84-15-3693JydlmywwTqbcvqhs codes; unclassified (3 sources)Nasogastric tube in situ; Translations: [Presence of other specified devices]EpisodicResidual codes; unclassified (3 sources)Insomnia; Translations: [Insomnia, unspecified]EpisodicResidual codes; unclassified (2 sources)Other specified postprocedural statesEpisodicSprains and strains (1 source)Lower back injury; Translations: [Strain of muscle, fascia and tendon of lower back, initial encounter]Onset: 20-19-5394AyzvqojkLokjyoffk-related disorders (20 sources)Cannabis hyperemesis syndrome co-occurrent and due to cannabis abuse; Translations: [Cannabis abusewith other cannabis-induced disorder]Onset: 376968-35-5193LqlbyemVbodcpv and intentional self-inflicted injury (20 sources)Suicidal thoughts; Translations: [Suicidal ideations]06-22-2018 EpisodicSuperficial injury; contusion (20 sources)Abrasion of ear region; Translations: [Abrasion of unspecified ear, initial encounter]Onset: 591051-52-4897PvszuyhlSclyaolgxmgg (1 source)Tachycardia, unspecified / R00.0(ICD-10)Onset: 36-14-5867Wbvvanscxden (1 source)Cyclical vomiting, not intractable / G43.A0(ICD-10)Onset: 08-24-2017 Unclassified (1 source)Obesity, unspecified / E66.9(ICD-10)Onset: 02-44-8347Fscstlmskolc (2 sources)Migraine, unsp, not intractable, without status migrainosus / G43.909(ICD-10)Onset: 46-50-2993Hyeoqapwwpki (1 source)Anxiety disorder, unspecified / F41.9(ICD-10)Onset: 08-25-2017 Unclassified (2 sources)Hematemesis / K92.0(ICD-10)Onset: 88-78-6484Cbasufecszwq (1 source)FPC (current) use of non-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-inflam (NSAID) / Z79.1(ICD-10)Onset: 78-46-0271Butzxvtxgrdj (1 source)Cntct w and expsr to environ tobacco smoke (acute) (chronic) / Z77.22(ICD-10)Onset: 04-35-0978Smpbfopwgcbt (1 source)Epistaxis / R04.0(ICD-10)Onset: 51-45-5195Acueghfwbulc (1 source)BMI pediatric, greater than or equal to 95% for age / Z68.54(ICD-10) Onset: 61-38-0935Fpbagbcvizwg (1 source)Vitamin D deficiency, unspecified / E55.9(ICD-10)Onset: 08-25-2017 Unclassified (1 source)Unspecified abdominal pain / R10.9(ICD-10)Onset: 08-25-2017 Unclassified (1 source)Dorsalgia, unspecified / M54.9(ICD-10)Onset: 72-43-9733Kfpmkvgoordc (1 source)Fatty (change of) liver, not elsewhere classified / K76.0(ICD-10) Onset: 39-41-1435Sgmmbrpbpbny (1 source)Vomiting, unspecified / R11.10(ICD-10)Onset: 28-78-1612Iddfglldnvgb (1 source)Other specified cardiac arrhythmias / I49.8(ICD-10)Onset: 08-24-2017 Unclassified (1 source)CONTACT W/AND (SUSP) EXPOS COVID-19; Translations: [CONTACT W/AND (SUSP) EXPOS COVID-19]Onset: 86-39-8193Archm infection (20 sources)Viral disease; Translations: [Viral infection, unspecified] 60-97-7416Cbpxltxv Past or Other Problems Problem ClassificationProblemDateDocumented DateEpisodic/ChronicSpondylosis; intervertebral disc disorders; other back problems (1 source)Dorsalgia, unspecified; Translations: [Dorsalgia, unspecified]Onset: 58-76-9240VrhmhkhmYrrhuobqvxec (1 source)Vomiting, unspecified; Translations: [Vomiting, unspecified]Onset: 80-49-5256Dyfgqwdifbsn (1 source)Tachycardia, unspecified; Translations: [Tachycardia, unspecified] Onset: 50-45-7493Afoxpjk tract infections (20 sources)Urinary tract infectious disease; Translations: [Urinary tract infection, site not specified]Onset: 871699-25-5922Wbpczjib Results Test NameValueInterpretationReference RangeFacilityAmphetamine Screen Ql (U) Ordered By: Kelsey Espino on 59-09-1127Cwvrpskkwprc Ql (U)NegativeNegative TrihealthBarbiturates [Presence] in Urine by Screen methodOrdered By: Kelsey Espino on 44-67-1473Adejgoeebknu Screen Ql (U)Negative NegativeTrihealthBenzodiazepines Screen Ql (U)Ordered By: Kelsey Espino on 89-02-8213Pwaagotbvhelris Ql (U)NegativeNegativeTrihealthBenzoylecgonine [Presence] in Urine by Screen method Ordered By: Kelsey Espino on 27-55-6010Xxuznvoyfqaicjn Screen Ql (U)Negative NegativeTrihealthChlamydia/GC/Trich NAAon 08-28-2025 Chlamydia Trachomotis, NAANegativeNormalNegativeThe [facility] Comment on above:Order Comment: Reason for Exam Encounter for supervision of other normal , unspeci Specimen Comment: A duplicate report has been generated due to demographic Specimen Comment: updates.Performed By: #### PAP [id number], GCCHLAMTRI #### [facility] , #### OBUDS #### [facility] [address] [id number] USANeisseria Gonorrhoeae, NAANegativeNormalNegativeThe [facility] Physician GroupComment on above:Order Comment: Reason for Exam Encounter for supervision of other normal , unspeci Specimen Comment: A duplicate report has been generated due to demographic Specimen Comment: updates.Performed By: #### PAP [id number], GCCHLAMTRI #### [facility] , #### OBUDS #### [facility] [address] [place] [address] USATrichomonas NAANegativeNormalNegativeThe [facility] Physician GroupComment on above:Order Comment: Reason for Exam Encounter for supervision of other normal , unspeci Specimen Comment: A duplicate report has been generated due to demographic Specimen Comment: updates.Result Comment: Performed at: =[address], [place], [place] [id number] Custom Studio Coordinator: Viv Birmingham MD, Phone: [phone] PERFORMED BY: [facility] [address] [place] [address] PATHOLOGIST HAND MOLDER MEAT FRAN NUNEZ M.D.Performed By: #### PAP [id number], GCCHLAMTRI #### [facility] , #### OBUDS #### [place] [address] USAIGP,Aptima HPV,CtNg Age Gdlnon 32-56-9596HQN, Age GdlnNote Normal.The [facility] Physician GroupComment on above:Order Comment: Reason for Exam Encounter for supervision of other normal , unspeci Specimen Comment: [id number] Comment: TESTS RESULT FLAG UNITS REF RANGE LAB Clinician Provided Cytology Information No. of containers..01 ThinPrep Vial Age Algo ACOG Geeta... -20 12 FLAG LEGEND: L-Low Normal,H-High Normal,LL-Alert Low,HH-Alert High <-Panic Low,>-Panic High,A-Abnormal,AA-Critical Abnormal Performed at: 01 =G [facility] [address] [place] [address] Viv Birmingham MD, Itphcrveo By: #### PAP 151878, GCCHLAMTRI #### [facility] , #### OBUDS #### [place] [address] USAPAP Chlamydia NAANegativeNormalNegativeThe [facility] Physician GroupComment on above:Order Comment: Reason for Exam Encounter for supervision of other normal , unspeci Specimen Comment: [id number] By: #### PAP [id number], GCCHLAMTRI #### [facility] , #### [address]BU[address] #### [place] [address] USAPAP GonococcusNegativeNormalNegativeThe [facility] Physician GroupComment on above:Order Comment: Reason for Exam Encounter for supervision of other normal , unspeci Specimen Comment: [id number] Comment: Performed at: = - [facility] [address] [id number] Custom Studio Coordinator: Viv Birmingham MD, Phone: [phone] Performed at: - [facility] [address] [id number] Custom Studio Coordinator: Viv Birmingham MD, Phone: [phone] PERFORMED BY: [place] [address] PATHOLOGIST HAND MOLDER MEAT FRAN NUNEZ M.D.Performed By: #### PAP [id number], GCCHLAMTRI #### [facility] , #### OBUDS #### [place] [address] USAPap IGNoteNormal.The [facility] Physician GroupComment on above:Order Comment: Reason for Exam Encounter for supervision of other normal , unspeci Specimen Comment: [id number] Comment: TESTS RESULT FLAG UNITS REF RANGE LAB DIAGNOSIS: 02 NEGATIVE FOR INTRAEPITHELIAL LESION OR MALIGNANCY. Specimen adequacy: 02 Satisfactory for evaluation. No endocervical component is identified. Performed by: 02 Queta Lofton, Supervisory Kelp Gatherer (ASC) . 02 Note: Note 02 The [...] <-Panic Low,>-Panic High,A-Abnormal,AA-Critical Abnormal Performed at: [address] [address] Viv Birmingham MD, Ngfehkzpm By: #### PAP [id number], GCCHLAMTRI #### [facility] , #### OBUDS #### [facility] [address] [id number] USAOB Urine Drug Screen (NO THC)on 45-01-4585Hesdnmboysp Screen,UrineNegativeNormalNegativeThe [facility] Physician GroupComment on above: Order Comment: Reason for Exam Encounter for supervision of other normal , unspeciPerformed By: #### PAP [id number], GCCHLAMTRI #### [facility] , #### OBUDS #### [facility] [address] [place] [address] USABarbiturate Screen,UrineNegativeNormalNegativeThe [facility] Physician GroupComment on above:Order Comment: Reason for Exam Encounter for supervision of other normal , unspeciPerformed By: #### PAP [id number], GCCHLAMTRI #### [facility] , #### OBUDS #### [facility] [address] [place] [address] USABenzodiazepines Screen,UrineNegativeNormalNegativeThe [facility] Physician GroupComment on above:Order Comment: Reason for Exam Encounter for supervision of other normal , unspeciPerformed By: #### PAP 188219, GCCHLAMTRI #### [facility] , #### OBUDS #### [facility] [address] [place] [address] USACocaine Screen,UrineNegativeNormalNegativeThe [facility] Physician GroupComment on above:Order Comment: Reason for Exam Encounter for supervision of other normal , unspeciPerformed By: #### PAP 815050, GCCHLAMTRI #### [facility] , #### OBUDS #### [place] [address] USAOpiate Screen,UrineNegativeNormalNegativeRockledge Regional Medical Center Physician GroupComment on above:Order Comment: Reason for Exam Encounter for supervision of other normal , unspeciPerformed By: #### PAP 956279, GCCHLAMTRI #### [facility] , #### OBUDS #### [facility] [address] [place] [address] USAPhencyclidine Screen, UrineNegativeNormalNegativeThe [facility] Physician GroupComment on above:Order Comment: Reason for Exam Encounter for supervision of other normal , unspeciResult Comment: These are unconfirmed results and should not be used for legal purposes. Drug Cut-Off Concentration: AMPH 1000 ng/mL NIKOLAS 200 ng/mL SHRAVAN 200 ng/mL COCM 300 ng/mL OP 300 ng/mL PCP 25 ng/mL PERFORMED BY: [place] [address] PATHOLOGIST HAND MOLDER MEAT FRAN NUNEZ M.D.Performed By: #### PAP [id number], NONIHLAMTRI #### [facility] , #### OBUDS #### [address] [id number] USAOpiates [Presence] in Urine by Screen methodOrdered By: Kelsey Espino on 66-77-5842Zacpmnw Screen Ql (U)NegativeNegSelect Medical Cleveland Clinic Rehabilitation Hospital, AvonPhencyclidine Screen Ql (U)Ordered By: Kelsey Espino on 48-49-4543Tljxepgidficl Ql (U)NegativeNegSelect Medical [facility], [place] Comment on above:These are unconfirmed results and should not be used for legal purposes. Drug Cut-Off Concentration: AMPH 1000 ng/mL NIKOLAS 200 ng/mL SHRAVAN 200 ng/mL COCM 300 ng/mL OP 300 ng/mL PCP 25 ng/mLUrine Cultureon 30-84-8323Ojccbmwi identified Cx Nom (U)25,000 colonies/ml mixed bacterial skin contaminants 2 Days PERFORMED BY: [place] [address] PATHOLOGIST HAND MOLDER MEAT FRAN NUNEZ M.D.NormalThe [facility] Physician GroupComment on above: Performed By: #### PAP 605122, NONIHLAMTRI #### [facility] , #### OBUDS #### [facility] [address] [place], [place] [id number] USAC Urineon 53-93-4584Wvipawku identified Cx Nom (U) Microbiology PROCEDURE: Urine Culture [R1] SOURCE: U CleanCatch BODY SITE: COLLECTED DATE/TIME: 08/22/2025 19:48 EDT RECEIVED DATE/TIME: 08/22/2025 20:18 EDT START DATE/TIME: 08/22/2025 20:18 EDT FREE TEXT SOURCE: Sunday Johnson PA-C. Elizabeth LOVE, Sunday Abdi. FINAL REPORTS Final Report [] Verified Date/Time: 08/24/2025 10:07 EDT 3,000 cfu/ml Mixed skin contaminants Performing Locations R1: This test was performed at: [facility], [address] [place] [address], [address] , [place], GccixqNoptyaJ.W. Ruby Memorial HospitalComment on above:Performed By: #### [id number] #### [facility] [address] [place] [address] 12[address]KG 1st Trimesteron 10-33-0821LS 1st TrimesterExam Date/Time: 08/22/2025 21:20 EDT Reason [...] Mahamed Quispe MD Transcribed by: KIRA Technologist: OdalismimiMckitrick HospitalBMPon 42-04-3412Ldjso gap [Moles/Vol]14 mmol/LNormal6-16[facility] Comment on above:Performed By: #### [id number] #### [facility] [address], [place] [address]OGI/Creat Ratio30 No MibssInyh95-84PsekqwMckitrick Hospital Comment on above:Performed By: #### [id number] #### [facility] [address], [place] [address]Qskoozt [Mass/Vol]10.3 mg/dLNormal8.9-11.1FMercy Health Kings Mills HospitalComment on above:Performed By: #### [id number] #### [facility] [address], [place] [address]Wsynpyya [Moles/Vol]97 mmol/ZHzu804-283XagfjpMckitrick HospitalComment on above:Performed By: #### [id number] #### [facility] [address], [place] [address]XM7 [Moles/Vol]27 mmol/ZRgtqxs66-87CewnmdMckitrick Hospital Comment on above:Performed By: #### [id number] #### [facility] [address], [place] [address]Uclonniqpg [Mass/Vol]0.9 mg/dLNormal0.5-1.3FMercy Health Kings Mills HospitalComment on above:Performed By: #### [id number] #### [facility] [address], [place] [address]Tpzufpm [Mass/Vol]106 mg/tOYdhpgm89-248EptrafMckitrick HospitalComment on above:Performed By: #### [id number] #### [facility] [address], [place] [address]Ixsdupkix [Moles/Vol]3.3 mmol/LLow3.5-5.3FMercy Health Kings Mills HospitalComment on above:Performed By: #### [id number] #### [facility] [address], [place] [address]Aqvnbf [Moles/Vol]135 mmol/EGdadqe295-953UipwflMckitrick HospitalComment on above:Performed By: #### [id number] #### [facility] [address], [place] [address]Vwhc nitrogen [Mass/Vol]27 mg/dLHigh5-21Mckitrick HospitalComment on above:Performed By: #### [id number] #### [facility] [address] [place] [address]TgGN Quanton 51-42-5424Zhgq hCG Eum5935 mIU/mLHigh1-3FMercy Health Kings Mills HospitalComment on above:Result Comment: 'F NON < 1 - 3' ' 0.2 - 1 WEEK = 5 TO 50' ' 1 - 2 WEEKS = 50 - 500' ' 2 - 3 WEEKS = 100 - 5000' ' 3 - 4 WEEKS = 500 - 35454' ' 4 - 5 WEEKS = 1000 - 78717' ' 5 - 6 WEEKS = 02621 - 185623' ' 6 - 8 WEEKS = 74914 - 976136' ' 8 - 12 WEEKS = 99175 - 296186'Performed By: #### [id number] #### [facility] [address], [place] [address]XIP w/ Auto Diffon 44-98-3588Kjrcvbfa Absolute0.1 E9/LNormal 0.0-0.2FMercy Health Kings Mills HospitalComment on above:Performed By: #### [id number] #### [facility] [address], [place] [address]Cxiizihah/100 WBC (Bld)0.8 %Normal0.0-2.0Mckitrick HospitalComment on above:Performed By: #### [id number] #### [facility] [address], [place] [address]Lfx Absolute0.0 E9/LNormal0.0-0.5FMercy Health Kings Mills Hospital Comment on above:Performed By: #### [id number] #### [facility] [address], [place] [address]Nvvhwfremem/100 WBC (Bld)0.1 %Normal0.0-8.0Mckitrick HospitalComment on above:Performed By: #### [id number] #### [facility] [address], [place] [address]Bpiylspxhyq distribution width (RBC) [Ratio]14.0 %Normal 10.9-14.2FMercy Health Kings Mills HospitalComment on above:Performed By: #### [id number] #### [facility] [address] [place] [address]Dbtjxhcwbi (Bld) [Volume fraction]44.8 %Ibifnb85.0-46.0Mckitrick HospitalComment on above:Performed By: #### [id number] #### [facility] [address] [place] [address]Cbgzfxlgim (Bld) [Mass/Vol]15.6 g/rEAwopst91.0-16.0M[facility]rick HospitalComment on above:Performed By: #### [id number] #### [facility] [address] [place] [address]Fjqgu Absolute1.4 E9/LNormal1.0-4.0[facility] Comment on above:Performed By: #### [id number] #### [facility] [address] [place] [address]Gpzorrozbiq/100 WBC (Bld)8.2 %Low14.0-50.0Mckitrick HospitalComment on above:Performed By: #### [id number] #### [facility] [address] [place] [address]YGC (RBC) [Entitic mass]30.1 zkAfpxxd71.0-34.0M[facility]itrick HospitalComment on above:Performed By: #### [id number] #### [facility] [address], [place] [address]XLYV (RBC) [Mass/Vol]34.8 g/rIXxihyy24.4-36.0M[facility]rick HospitalComment on above:Performed By: #### [id number] #### [facility] [address], [place] [address]ZLL (RBC) [Entitic vol]86.4 jOYshgku95.0-100.0M[facility]rick HospitalComment on above:Performed By: #### [id number] #### [facility] [address] [place] [address]Jsaf Absolute0.9 E9/LNormal0.2-1.0[facility] Comment on above:Performed By: #### [id number] #### [facility] [address] [place] [address]Tobfaphfe/100 WBC (Bld)5.4 %Normal4.0-14.0M[facility]rick HospitalComment on above:Performed By: #### [id number] #### [facility] [address], [place] [address]Ourfjt Hjdudycc22.1 E9/LHigh2.0-7.5FMercy Health Kings Mills Hospital Comment on above:Performed By: #### [id number] #### [facility] [address], [place] [address]Camlya Auto85.5 %High36.0-75.0[facility] Comment on above:Performed By: #### [id number] #### [facility] [address], [place] [address]Jsptfrfo095.0 E9/ZGnnnec495.0-500.0[facility] Comment on above:Performed By: #### [id number] #### [facility] [address], [place] [address]Iefvmkni mean volume (Bld) [Entitic vol]8.0 fLNormal6.4-10.8 [facility] HospitalComment on above:Performed By: #### [id number] #### [facility] [address] [place] [address]EYC8.2 E12/LNormal4.3-5.9M[facility]itrick HospitalComment on above:Performed By: #### [id number] #### [facility] [address] [place] [address]YQL34.5 E9/LHigh4.0-11.0M[facility]rick HospitalComment on above:Performed By: #### [id number] #### [facility] [address] [place] [address]UR Clinical Summaryon 71-43-7344VR Clinical SummaryED Clinical Summary [address] [address] ED Clinical Summary Person Information Name: PILI PARIKH/[facility] Age: 20 Years : 2005 Sex: Female Language: Rwandan PCP: MODESTA CHAND CNP Marital Status: Single [...] 08/22/2025 21:56:29 08/22/2025 21:56:29 ADDRESS: [address] [facility] [id number] PHYS DOC NOTES: MEDICAL INFORMATION: Prescriptions Given: Medications to Continue Taking That Have Changed [id number], [address], [place] [id number], [phone] START: ondansetron (Zofran ODT 4 mg Tab-Dis) [...] Vomiting, Adult Follow up: With: Address: When: [facility] [phone] In 3 days 08/25/2025 Comments: Follow-up with Kelsey cuadra GEOSPATIAL SCIENTIST at [facility]. Use nausea medications as prescribed. Eat multiple small meals a day. Increase your fluid intake. With: Address: When: MODESTA CHAND [address] [place] (more content not included)... NormalFisher Anthony Medical CenterED Note-Nursingon [id number] Note-NursingED Note-Nursing pt requesting to leave ama. pt states she does not want to keep waiting and just wants to go home. pt made aware of risks of leaving by millicent sanchez and Dr. guthrie. pt still requesting to leave ama. pt informed of when to come back and pt verbalized understanding. ama form signed prior to pt leaving.[facility] CenterED Note-Physicianon [id number] Note-PhysicianED Note-Physician Basic Information Time Seen: Sunday [...] Zofran and ODT as well as Phenergan MS were prescribed. The patient still wanted to leave AGAINST MEDICAL ADVICE. Discussed with her that she may return atany time to continue her care. She will follow-up with her GEOSPATIAL SCIENTIST at [facility]. Returnprecautions were discussed. All questions were [...] PRN Nausea/Vomiting, # 30 tab(s), Refills(s) 0, [id number], cm, 08/22/25 17:08:00 EDT, Height/Length Dosing, 95, kg, 08/22/25 17:08:00EDT, Weight Dosing promethazine, 25 mg = 1 supp, Rectal, q6hr, PRN Nausea/Vomiting, # 16 EA, Refills(s) 0, [id number] 157, cm, 08/22/25 17:08:00 EDT, Height/Length Dosing, 95, kg, 08/22/25 17:08:00 EDT, Weight Dosing promethazine, 25 mg = 1 supp, Supp, Rectal, Once, Stop date 08/22/25 20:02:00 EDT, STAT, Start date08/22/25 20:02:00 EDT, 08/22/25 20:02:00 EDT Urinary Catheter Insertion Medications Admini (more content not included)...[facility] CenterComment on above:Result Comment: Electronically Signed By: Sunday Johnson PA-C\.br\Date and Time Signed: 08/22/2519:13 EDT\.br\Electronically Co- Signed By: Pradeep Guthrie DO\.br\Date and Time Co-Signed: 08/22/2521:55 EDTED Patient Summaryon [id number] Patient SummaryED Patient Summary [address] [address] Patient Discharge Instructions Person Information Name: PILI PARIKH Age: 20 Years Arrival Date: 08/22/2025 17:04:27 Discharge Diagnosis: 1:Abdominal pain; 2:Nausea & vomiting; 3:; Hyperemesis gravidarum;Left against medical advice Primary Care Physician: MODESTA CHAND CNP Provider Information Primary Provider: Federico Randolph DO Advanced Bias Machine Operator:Elizabeth LOVE, Sunday Abdi. The exam and treatment you received in the Emergency Department were for an urgent problem and are not intended as complete care. It is important that you follow up with a doctor, nurse practitioner,or physician???s wet process assistant head miller for ongoing care. If your symptoms become worse or you do not improve asexpected and you are unable to reach your usual health care provider, you should return to the Emergency Department. We are available 24 hours a day. JLPILI TERRY has been given the following list of patient education materials, prescriptions andfollow-up instructions: Follow-up Instructions: With: Address: When: [facility] [phone] In 3 days 08/25/2025 Comments: Follow-up with Kelsey your GEOSPATIAL SCIENTIST at [facility]. Use nausea medications as prescribed. Eat multiple small meals a day. Increase your fluid intake. With: Address: When: MODESTA CHAND [facility] [place] [address] [phone] [facility] (1) In 3 days 08/25/2025 Comments: [...] opioids can be used to help relieve ksbrilyo-dp-dppjxf pain and are often prescribed following a [...] more often than prescribed. (more content not included)...NormalMckitrick HospitalHep [facility] Panelon 38-38-7911Bjbflee [Mass/Vol]5.2 g/dLHigh3.3-5.0[facility] Comment on above:Performed By: #### [id number] #### [facility] [address], [place] [address]Lvcsftb/Globulin [Mass ratio]1.4 {ratio}Normal1.1-2.2FMercy Health Kings Mills HospitalComment on above:Performed By: #### [id number] #### [facility] [address], [place] [address]Fbt Phos71 Int._Unit/KSdchre95-42MsarqfMckitrick Hospital Comment on above:Performed By: #### [id number] #### [facility] [address], [place] [address]IEB60 Int._Unit/LNormal6-46M[facility] HospitalComment on above:Performed By: #### [id number] #### [facility] [address], [place] [address]QQD45 Int._Unit/LNormal5-43[facility]itrick HospitalComment on above:Performed By: #### [id number] #### [facility] [address], [place] [address]Xieg Direct0.2 mg/dLNormal0.0-0.4FMercy Health Kings Mills Hospital Comment on above:Performed By: #### [id number] #### [facility] [address], [place] [address]Rims Indirect0.5 mg/dLNormal0.1-0.9[facility] Comment on above:Performed By: #### [id number] #### [facility] [address], [place] [address]Odfa Total0.7 mg/dLNormal0.0-1.1FMercy Health Kings Mills Hospital Comment on above:Performed By: #### [id number] #### [facility] [address], [place] [address]Ssatrxjy (S) [Mass/Vol]3.8 g/dLNormal1.4-4.0M[facility]itrick HospitalComment on above:Performed By: #### [id number] #### [facility] [address], [place] [address]Vljswjw [Mass/Vol]9.0 g/dLHigh6.0-7.8Mckitrick HospitalComment on above:Performed By: #### [id number] #### [facility] [address], [place] [address]Vdfaas Levelon 36-92-9508Rxbumg Lvl21 unit/HIchxig06-58CibincMckitrick HospitalComment on above:Performed By: #### [id number] #### [facility] [address], [place] [address]KK with Cult Rflxon 42-28-3824Sgpst (U)YellowNormalYellowMckitrick HospitalComment on above:Order Comment: Added by Discern Expert Result Comment: Microscopic readings are only performed on those samples that meet specific criteria set forth by [facility]. Performed By: #### [id number] #### [facility] [address], [place] [address]Mnghkox (U) [Mass/Vol]NegativeNormalNegativeMckitrick HospitalComment on above:Order Comment: Added by Husam ExpertPerformed By: #### [id number] #### [facility] [address], [place] [address]Ptghgcz Ql (U)3+ mg/dLAbnormalNegEast Liverpool City HospitalComment on above:Order Comment: Added by Husam ExpertPerformed By: #### [id number] #### [facility] [address], [place] [address]XW BloodNegativeNormalNegEast Liverpool City Hospital Comment on above:Order Comment: Added by Husam ExpertPerformed By: #### [id number] #### [facility] [address], [place] [address]CS BacteriaTraceNormalTraceMckitrick HospitalComment on above:Order Comment: Added by Husam ExpertPerformed By: #### [id number] #### [facility] [address], [place] [address]ZX ClarityTurbidAbnormalClearFMercy Health Kings Mills HospitalComment on above:Order Comment: Added by Discern ExpertPerformed By: #### [id number] #### [facility] [address], [place] [address]XM Hyal Wqmd1-6Gyylwb2-0VyiphuMercy Health Kings Mills HospitalComment on above:Order Comment: Added by Discern ExpertPerformed By: #### [id number] #### [facility] [address], [place] [address]MQ Leuk Est75 Lesli/uLAbnormalNegativeMckitrick Hospital Comment on above:Order Comment: Added by Husam ExpertPerformed By: #### [id number] #### [facility] [address] [place] [address]EY MucousTraceNormalNegEast Liverpool City HospitalComment on above:Order Comment: Added by Husam ExpertPerformed By: #### [id number] #### [facility] [address] [place] [address]KZ NitriteNegativeNormalNegEast Liverpool City Hospital Comment on above:Order Comment: Added by Husam ExpertPerformed By: #### [id number] #### [facility] [address] [place] [address]EB pH6.5Invalid Interpretation Code5.0-9.0[facility] HospitalComment on above:Order Comment: Added by Husam ExpertPerformed By: #### [id number] #### [facility] [address], [place] [address]FJ Protein1+ mg/dLAbnormalNegEast Liverpool City Hospital Comment on above:Order Comment: Added by Husam ExpertPerformed By: #### [id number] #### [facility] [address] [place] [address]OF MII8-88Pfrvmoyg4-9XlflrbMercy Health Kings Mills HospitalComment on above:Order Comment: Added by Husam ExpertPerformed By: #### [id number] #### [facility] [address], [place] [address]EA Spec Grav1.038Invalid Interpretation Code1.005-1.030Mckitrick HospitalComment on above:Order Comment: Added by Discern Expert Performed By: #### [id number] #### [facility] [address], [place] [address]GV Squam Epithelial>10Invalid Interpretation CodeMckitrick HospitalComment on above:Order Comment: Added by Discern ExpertPerformed By: #### [id number] #### [facility] [address], [place] [address]MK UrobilinogenNegativeNormalNegativeMckitrick HospitalComment on above:Order Comment: Added by Discern ExpertPerformed By: #### [id number] #### [facility] [address], [place] [address]EE YVX4-38Hxjwread8-5TrrrlaMercy Health Kings Mills HospitalComment on above:Order Comment: Added by Discern ExpertPerformed By: #### [id number] #### [facility] [address], [place] [address]Qcwtsiluhfdf (U) [Mass/Vol]NegativeNormalNegativeMckitrick HospitalComment on above:Order Comment: Added by Discern ExpertPerformed By: #### [id number] #### [facility] [address], [place] [address]YZ with Cult Rflx SPon 69-28-6633UD Spec DescClean CatchNormal [facility] HospitalComment on above:Performed By: #### [id number] #### [facility] [address], [place] [address]wRMUiw 55-72-7039qDPR17 mL/min/1.73 a6Sqknoc>=59M[facility]itrick HospitalComment on above:Performed By: #### [id number] #### [facility] [address], [place] [address]Bodzc Cultureon 49-85-2864Qoqvnfvi identified Cx Nom (U) >100,000 colonies/ml mixed bacterial skin contaminants 2 Days PERFORMED BY: [place] [address] PATHOLOGIST HAND MOLDER MEAT FRAN NUNEZ M.D.[facility] Physician GroupComment on above: Performed By: #### PAP [id number], [id number] #### [facility] , #### OBUDS #### [place] [address] USAUrine Cultureon 35-36-3325Upybszaz identified Cx Nom (U) <9,000 colonies/ml mixed bacterial skin contaminants 2 Days PERFORMED BY: [place] [address] PATHOLOGIST HAND MOLDER MEAT FRAN NUNEZ M.D.[facility] Physician GroupComment on above: Performed By: #### CUU #### [place] [address] USAUrine cultureOrdered By: Jasmeet Dahl on 39-05-5187Rviasfrx identified Cx Nom (U)Urine cultureTrihealthUrine Cultureon 64-21-9234Inhgyukl identified Cx Nom (U)>100,000 colonies/ml mixed bacterial skin contaminants 2 Days PERFORMED BY: [place] [address] PATHOLOGIST HAND MOLDER MEAT IDANIA GODOY M.D.[facility] Physician GroupComment on above: Performed By: #### CUU #### [place] [id number] USACT Abdomen/Pelvis w/ Contraston 67-55-9657MP Abdomen/Pelvis w/ ContrastExam Date/Time: 01/16/2025 18:35 EST [...] Dolan MD Transcribed by: KIRA Technologist: [facility] HospitalCT Chest w/ Contraston 54-23-8465OL Chest w/ ContrastExam Date/Time: 01/16/2025 18:35 EST [...] Anselmo Dolan MD Transcribed by: KIRA Technologist: [facility] CenterCT Head or Brain w/o Contraston 10-87-8874NH Head or Brain w/o ContrastExam Date/Time: 01/16/2025 [...] Anselmo Dolan MD Transcribed by: KIRA Technologist: [facility] CenterCT Spine Cervical w/o Contraston 47-37-8494AX Spine Cervical w/o ContrastExam Date/Time: 01/16/2025 18:31 [...] Anselmo Dolan MD Transcribed by: KIRA Technologist: [facility] CenterED Note-Physicianon 27-58-8845SM Note-PhysicianED Note-Physician Basic Information Time Seen: Rashaad [...] and Complexity of Problems Differential Diagnosis: [] [facility] Data External documents reviewed: [] [...] day(s), # 21 tab(s), Refills(s) 0, Pharmacy: [facility]/pharm[facility] #[id number], 157, cm, 01/16/25 17:56:00 EST, Height/Length [...] food, # 20 tab(s), Refills(s) 0, Pharmacy: [facility]/pharmacy #[id number], 157, cm, 01/16/25 17:56:00 EST, Height/Length Dosing, 95, kg, 01/16/25 17:56:00 EST, Weight Dosing promethazine, 12.5 mg = 0.5 tab(s), Tab, Oral, Once, Stop date 01/16/25 19:41:00 EST, STAT, Start date 01/16/25 19:41:00 EST, 01/16/25 19:41:00 EST promethazine, 12.5 mg = 1 tab(s), Oral, q6hr, PRN for nausea/vomiting, # 10 tab(s), Refills(s) 0, Pharmacy: [facility]/pharmacy #[id number], 157, cm, 01/16/25 17:56:00 EST, Height/Length Dosing, 95, kg, 01/16/25 17:56:00 EST, Weight Dosing ABO/Rh ABO/Rh History Check Antibody Screen Basic Metabolic Panel Beta hCG Qual Blood Bank ID# CBC w/ Auto Diff CT Abdomen/Pelvis w/ Contrast CT Chest w/ Contrast CT Head or Brain w/o Cont (more content not included)...[facility] Medical CenterComment on above:Result Comment: Electronically Signed By: Rashaad Albrecht PA-C\.br\Date and Time Signed: 01/16/2522:30 EST\.br\Electronically Co-Signed By: August Bermudez M.D.\.br\Date and Time Co-Signed: 01/17/25 08:51 ESTXR Knee Complete 4+ Views Lefton 01-87-8504ID Knee Complete 4+ Views LeftExam Date/Time: 01/16/2025 [...] Carlos Araya DO Transcribed by: KIRA Technologist: [facility] HospitalXR Knee Complete 4+ Views Righton 34-66-4633IB Knee Complete 4+ Views RightExam Date/Time: 01/16/2025 [...] DO Transcribed by: KIRA Technologist: AMDUniversity Hospitals TriPoint Medical CenterABO/Rhon 40-03-1938ONI/RhPositiveInvalid Interpretation [facility] Comment on above:Performed By: #### [id number] #### [facility] [address], [place] [address]TVZ/Rh History Checkon 21-53-6459ZHZ/Rh History CheckVerified Hx Blood TypeNoJ.W. Ruby Memorial HospitalComment on above:Performed By: #### [id number] #### [facility] [address], [place] [address]GMSXsn 42-87-3634BDKO Gel InterpNegativeUniversity Hospitals TriPoint Medical CenterComment on above:Performed By: #### [id number] #### [facility] [address], [place] [address]Q hCG Qualon 05-05-7592Xjmr HCG ( test) QlNegative [facility] Medical CenterComment on above:Performed By: #### [id number] #### [facility] [address], [place] [address]NNANG BANKOrdered By: Virginia Mccain on 46-72-6027TCA/Rh Interp PositiveInvalid Interpretation [facility] BB SubsectionABSC Gel InterpNegative (01/16/25 7:26 PM)NormalMEMORIAL [facility] BB SubsectionBMPon 51-10-4925Beici gap [Moles/Vol]20 mmol/LHigh6-16[facility] HospitalComment on above:Performed By: #### [id number] #### [facility] [address], [place] [address]Kwvbfpi [Mass/Vol]10.9 mg/dLNormal8.9-11.1FMercy Health Kings Mills HospitalComment on above:Performed By: #### [id number] #### [facility] [address], [place] [address]Hgyjwjoo [Moles/Vol]101 mmol/PGgflwp998-610FcvsusMckitrick HospitalComment on above:Performed By: #### [id number] #### [facility] [address], [place] [address]MR7 [Moles/Vol]22 mmol/MXticit26-85HcfnflMckitrick Hospital Comment on above:Performed By: #### [id number] #### [facility] [address], [place] [address]Evnrmctjcq [Mass/Vol]0.9 mg/dLNormal0.5-1.3FMercy Health Kings Mills HospitalComment on above:Performed By: #### [id number] #### [facility] [address], [place] [address]Urccyym [Mass/Vol]116 mg/tTTnrxfp30-599AowtcmMckitrick HospitalComment on above:Performed By: #### [id number] #### [facility] [address], [place] [address]Tdzlnvnxi [Moles/Vol]3.3 mmol/LLow3.5-5.3FMercy Health Kings Mills HospitalComment on above:Performed By: #### [id number] #### [facility] [address], [place] [address]Hentve [Moles/Vol]140 mmol/VKfrkuj793-798YpperhMckitrick HospitalComment on above:Performed By: #### [id number] #### [facility] [address], [place] [address]Rvsy nitrogen [Mass/Vol]23 mg/dLHigh5-21[facility] HospitalComment on above:Performed By: #### [id number] #### [facility] [address], [place] [address]Xnvf nitrogen/Creatinine [Mass ratio]26 No BcirhOpmv36-46YqpkovMckitrick HospitalComment on above:Performed By: #### [id number] #### [facility] [address], [place] [address]Vgcpq Bank ID#on [id number] Interpretation CodeMckitrick HospitalComment on above:Performed By: #### [id number] #### [facility] [address], [place] [address]ETB w/ Auto Diffon 21-71-4189Ciamdweol/100 WBC (Bld)0.3 %Normal 0.0-2.0[facility] HospitalComment on above:Performed By: #### [id number] #### [facility] [address] [place] [address]Gbvdzkcum/Leukocytes Auto (Bld) [Pure # fraction]0.0 E9/LNormal 0.0-0.2FMercy Health Kings Mills HospitalComment on above:Performed By: #### [id number] #### [facility] [address] [place] [address]Kepxhhkclrp (Bld) [#/Vol]0.0 E9/LNormal0.0-0.5FMercy Health Kings Mills HospitalComment on above:Performed By: #### [id number] #### [facility] [address], [place] [address]Qckextwmqoz/100 WBC (Bld)0.0 %Normal0.0-8.0[facility] HospitalComment on above:Performed By: #### [id number] #### [facility] [address], [place] [address]Vyzevqjegfe distribution width (RBC) [Ratio]13.7 %Normal 10.9-14.2FMercy Health Kings Mills HospitalComment on above:Performed By: #### [id number] #### [facility] [address] [place] [address]Vjpdruyzqi (Bld) [Volume fraction]46.9 %High34.0-46.0[facility] HospitalComment on above:Performed By: #### [id number] #### [facility] [address] [place] [address]Itcrxvdtwy (Bld) [Mass/Vol]16.0 g/yPKrirxm52.0-16.0[facility] HospitalComment on above:Performed By: #### [id number] #### [facility] [address] [place] [address]Tgizqmnubvk (Bld) [#/Vol]1.4 E9/LNormal1.0-4.0[facility] HospitalComment on above:Performed By: #### [id number] #### [facility] [address] [place] [address]Lvroontbfrx/100 WBC (Bld)11.6 %Low14.0-50.0[facility] HospitalComment on above:Performed By: #### [id number] #### [facility] [address] [place] [address]MUQ (RBC) [Entitic mass]28.8 giImctcc77.0-34.0[facility] HospitalComment on above:Performed By: #### [id number] #### [facility] [address] [place] [address]RBLH (RBC) [Mass/Vol]34.1 g/dXUjcley65.4-36.0[facility] HospitalComment on above:Performed By: #### [id number] #### [facility] [address] [place] [address]RVF (RBC) [Entitic vol]84.3 uIRgtbvd96.0-100.0[facility] HospitalComment on above:Performed By: #### [id number] #### [facility] [address] [place] [address]Irxxirgue (Bld) [#/Vol]0.6 E9/LNormal0.2-1.0[facility] HospitalComment on above:Performed By: #### [id number] #### [facility] [address] [place] [address]Gsicvaenhcc (Bld) [#/Vol]10.0 E9/LHigh2.0-7.5FMercy Health Kings Mills HospitalComment on above:Performed By: #### [id number] #### [facility] [address] [place] [address]Jbucliosifc/100 WBC (Bld)83.4 %High36.0-75.0[facility] HospitalComment on above:Performed By: #### [id number] #### [facility] [address] [place] [address]Lazhafcb mean volume (Bld) [Entitic vol]8.9 fLNormal6.4-10.8 [facility] HospitalComment on above:Performed By: #### [id number] #### [facility] [address] [place] [address]Oiexixrje (Bld) [#/Vol]300.0 E9/BWvupxy548.0-500.0[facility] HospitalComment on above:Performed By: #### [id number] #### [facility] [address] [place] [address]POF (Bld) [#/Vol]5.6 E12/LNormal4.3-5.9[facility] HospitalComment on above:Performed By: #### [id number] #### [facility] [address] [place] [address]YUV corrected for nucl RBC Auto (Bld) [#/Vol]12.0 E9/LHigh 4.0-11.0[facility] HospitalComment on above:Performed By: #### [id number] #### [facility] [address] [place] [address]WBEYNSFZOVxpzify By: SYSTEM SYSTEM on 12-46-6145Zhnlptz [Mass/Vol]5.5 g/dLHigh3.3 - 5.0 gm/dLRemisol ChemAlbumin/Globulin [Mass ratio] 1.5 {ratio}Normal1.1 - 2.2Remisol ChemALP [Catalytic activity/Vol]71 [iU]/d Wzuazx07 - 98 Int._Unit/LRemisol ChemALT No additional P-5'-P [Catalytic activity/Vol]42 [iU]/dNormal6 - 46 Int._Unit/LRemisol ChemAnion gap [Moles/Vol] 20 mmol/LHigh6 - 16 mEq/LRemisol ChemAST [Catalytic activity/Vol]19 [iU]/dNormal 5 - 43 Int._Unit/LRemisol ChemBilirubin [Mass/Vol]1.0 mg/dLNormal0.0 - 1.1 mg/dL Remisol ChemBilirubin.direct [Mass/Vol]0.2 mg/dLNormal0.0 - 0.4 mg/dLRemisol ChemBilirubin.indirect [Mass or moles/Vol]0.8 mg/dLNormal0.1 - 0.9 mg/dLRemisol ChemCalcium [Mass/Vol]10.9 mg/dLNormal8.9 - 11.1 mg/dLRemisol ChemChloride [Moles/Vol]101 mmol/WBmllbn802 - 111 mmol/LRemisol ChemCO2 [Moles/Vol]22 mmol/L Ymhbhm81 - 31 mmol/LRemisol ChemCreatinine [Mass/Vol]0.9 mg/dLNormal0.5 - 1.3 mg/dLRemisol VymmeKIB96 mL/min/1.73 t0Ltrogt>=59mL/min/1.73 j9Dqkzrnl Chem Ethanol Lvlmg/dLNormal<=11mg/dLRemisol ChemGlobulin (S) [Mass/Vol]3.6 g/dLNormal 1.4 - 4.0 gm/dLRemisol ChemGlucose [Mass/Vol]116 mg/pWApsoep29 - 199 mg/dL Remisol ChemLactic Acid Lvl1.6 mmol/LNormal0.5 - 2.2 mmol/LRemisol ChemLipase [Catalytic activity/Vol]8 U/LLow13 - 58 unit/LRemisol ChemPotassium [Moles/Vol] 3.3 mmol/LLow3.5 - 5.3 mmol/LRemisol ChemProtein [Mass/Vol]9.1 g/dLHigh6.0 - 7.8 gm/dLRemisol ChemSodium [Moles/Vol]140 mmol/BCqvsns824 - 145 mmol/LRemisol Chem Troponin HS3.40 pg/mLLow10.10 - 27.10 pg/mLRemisol ChemComment on above: Interpretive Data: The 95% CI (Confidence Interval) PPV (Positive Predictive Value) for myocardial infarction in females is 38 pg/mL, in males 51 pg/mL. The results should be used in conjunction withclinical conditions of myocardial infarction. (Access High Sensitivity Troponin I Instructions For Use, [employer], June 2018)Urea nitrogen [Mass/Vol]23 mg/dLHigh5 - 21 mg/dLRemisol ChemUrea nitrogen/Creatinine [Mass ratio]26 mg/ydJhxu85 - 20Remisol ChemCOAGULATION Ordered By: Ghazal Morrell on 26-16-0001iOCB Coag (PPP) [Time]23.1 sLow25.1 - 36.5 second(s)[facility] Auto CoagComment on above:Interpretive Data: Parameter 15 [...] the same coagulation reagent and instrumentation as [facility]. Currently there are no coagulation studies available worldwide for children to 14 days, andno normal ranges. Heparin therapeutic range (represented by Anti-Factor Xa activity of 0.2 - 0.4 U/mL) corresponds to PTT of 56.6 - 109.0 sec.INR Coag (PPP) [Relative time]1.10 {INR}Invalid Interpretation CodeMEMORIAL HOSPITAL OF [facility] Auto CoagComment on above:Interpretive Data: INR results are specifically intended to assess patients stabilized on long-term Anticoagulation therapy suggested INR s Less Intensive Anticoagulation 2.0 3.0 Conventional Range 3.0 4.5PT Coag (PPP) [Time]12.3 sNormal9.4 - 12.5 second(s) [facility] Auto CoagComment on above:Interpretive Data: 15 days [...] the same coagulation reagent and instrumentation as [facility]. Currently there are no coagulation studies available worldwide for children to 14 days, andno normal ranges.ED Clinical Summaryon 24-94-1935UI Clinical SummaryED Clinical Summary [place] [address] ED Clinical Summary Person Information Name: PILI PARIKH/[facility] Age: 19 Years : 2005 Sex: Female Language: Rwandan PCP: MODESTA CHAND CNP Marital Status: Single [...] 01/16/2025 20:36:16 01/16/2025 20:36:16 01/16/2025 20:36:16 ADDRESS: [facility] [facility] [phone] PHYS DOC NOTES: MEDICAL INFORMATION: Prescriptions Given: New Medications [facility]/pharmacy #[id number], [address], [place] [id number], [phone] cyclobenzaprine (cyclobenzaprine 5 mg Tab) 1 Tablets By Mouth 3 times a day for 7 Days. Refills: 0. Medications to Continue Taking That Have Changed [facility]/pharmacy #[id number], [address], [place] [id number], [phone] START: naproxen (naproxen 500 mg Tab) 1 [...] Contusion; Fall Prevention in the Home, Adult, Auek-ab-Podb Follow up: With: Address: When: MODESTA CHAND [address] [place] [phone] Business () In 3 days 2025 Comments: Call Dr for diagnosis based follow up DIAGNOSIS: Abdominal contusion; Fall down steps; K[facility] contusionLakeHealth [facility] Patient Summaryon [id number] Patient SummaryED Patient Summary [address] [address] Patient Discharge Instructions Person Information Name: PILI PARIKH Age: 19 Years Arrival Date: 01/16/2025 17:51:31 Discharge Diagnosis: Abdominal contusion; Fall down steps; Knee contusion Primary Care Physician: MODESTA CHAND CNP Provider Information Primary Provider: August Bermudez M.D. Advanced Bias Machine Operator:Rashaad Albrecht PA-C The exam and treatment you received in the Emergency Department were for an urgent problem and are not intended as complete care. It is important that you follow up with a doctor, nurse practitioner,or physician???s wet process assistant head miller for ongoing care. If your symptoms become worse or you do not improve asexpected and you are unable to reach your usual health care provider, you should return to the Emergency Department. We are available 24 hours a day. PILI PARIKH has been given the following list of patient education materials, prescriptions andfollow-up instructions: Follow-up Instructions: With: Address: When: MODESTA CHAND [address] [place] [address] [place] [phone] Business (1) In 3 days 2025 Comments: Call Dr for diagnosis based follow up In the event that this physician does not participate in your insurance network, please consult with your insurance company to find a nearby participating provider. Patient Education Materials: RICE Therapy for Routine Care of Injuries; Contusion; Fall Prevention in the Home, Adult, Gdwn-fv-Nbnt A MESSAGE TO ALL PATIENTS REGARDING OPIOIDS PRESCRIPTION OPIOIDS: WHAT YOU NEED TO KNOW Prescription opioids can be used to help relieve rlminoqm-uq-ztqixe pain and are often prescribed following a [...] Administration (www.fda.gov/Drugs/ResourcesForYou). ??? Visit (more content not included)...NormalMckitrick HospitalEthanol on 23-76-6653Kboyvdi Lvl<10Normal<=11Mckitrick HospitalComment on above:Performed By: #### [id number] #### [facility] [address] [place] [address] [id number] By: SYSTEM SYSTEM on 48-68-7755Zhpjqcygf/100 WBC (Bld)0.3 %Normal0.0 - 2.0 %Remisol HemeBasophils/Leukocytes Auto (Bld) [Pure # fraction]0.0 E9/LNormal0.0 - 0.2 E9/LRemisol HemeEosinophils (Bld) [#/Vol]0.0 E9/LNormal0.0 - 0.5 E9/LRemisol HemeEosinophils/100 WBC (Bld)0.0 %Normal0.0 - 8.0 %Remisol HemeErythrocyte distribution width (RBC) [Ratio]13.7 %Jdoebt22.9 - 14.2 %Remisol HemeHematocrit (Bld) [Volume fraction]46.9 %High34.0 - 46.0 % Remisol HemeHemoglobin (Bld) [Mass/Vol]16.0 g/yERayubi58.0 - 16.0 gm/dLRemisol HemeLymphocytes (Bld) [#/Vol]1.4 E9/LNormal1.0 - 4.0 E9/LRemisol Heme Lymphocytes/100 WBC (Bld)11.6 %Low14.0 - 50.0 %Remisol HemeMCH (RBC) [Entitic mass]28.8 egEjhmrn65.0 - 34.0 pgRemisol HemeMCHC (RBC) [Mass/Vol]34.1 g/dLNormal 31.4 - 36.0 gm/dLRemisol HemeMCV (RBC) [Entitic vol]84.3 mDDbfszj61.0 - 100.0 fL Remisol HemeMonocytes (Bld) [#/Vol]0.6 E9/LNormal0.2 - 1.0 E9/LRemisol Heme Monocytes/100 WBC (Bld)4.7 %Normal4.0 - 14.0 %Remisol HemeNeutrophils (Bld) [#/Vol]10.0 E9/LHigh2.0 - 7.5 E9/LRemisol HemeNeutrophils/100 WBC (Bld)83.4 % High36.0 - 75.0 %Remisol HemePlatelet mean volume (Bld) [Entitic vol]8.9 fL Normal6.4 - 10.8 fLRemisol HemePlatelets (Bld) [#/Vol]300.0 E9/AVjkbhd739.0 - 500.0 E9/LRemisol HemeRBC (Bld) [#/Vol]5.6 E12/LNormal4.3 - 5.9 E12/LRemisol HemeWBC corrected for nucl RBC Auto (Bld) [#/Vol]12.0 E9/LHigh4.0 - 11.0 E9/L Remisol HemeHep Func Panelon 17-57-9816Qyxfeqh [Mass/Vol]5.5 g/dLHigh3.3-5.0 M[facility]itrick HospitalComment on above:Performed By: #### [id number] #### [facility] [address], [place] [address]Zhhvfdd/Globulin (S) [Mass conc ratio]1.9Yidgsi0.1-2.2FMercy Health Kings Mills HospitalComment on above:Performed By: #### [id number] #### [facility] [address], [place] [address]QHT [Catalytic activity/Vol]71 Int._Unit/TFysrqe85-23KoevjcMckitrick HospitalComment on above:Performed By: #### [id number] #### [facility] [address] [place] [address]RLZ No additional P-5'-P [Catalytic activity/Vol]42 Int._Unit/L Normal6-46Mckitrick HospitalComment on above:Performed By: #### [id number] #### [facility] [address] [place] [address]JFX [Catalytic activity/Vol]19 Int._Unit/LNormal5-43Mckitrick HospitalComment on above:Performed By: #### [id number] #### [facility] [address], [place] [address]Kaqznhwgk [Mass/Vol]1.0 mg/dLNormal0.0-1.1FMercy Health Kings Mills HospitalComment on above:Performed By: #### [id number] #### [facility] [address] [place] [address]Vyhrtwrph.direct [Mass/Vol]0.2 mg/dLNormal0.0-0.4FMercy Health Kings Mills HospitalComment on above:Performed By: #### [id number] #### [facility] [address], [place] [address]Wcwpjfmcn.indirect [Mass or moles/Vol]0.8 mg/dLNormal0.1-0.9 [facility]rick HospitalComment on above:Performed By: #### [id number] #### [facility] [address], [place] [address]Mwsdzffr (S) [Mass/Vol]3.6 g/dLNormal1.4-4.0Mckitrick HospitalComment on above:Performed By: #### [id number] #### [facility] [address], [place] [address]Ypbpfev [Mass/Vol]9.1 g/dLHigh6.0-7.8Mckitrick HospitalComment on above:Performed By: #### [id number] #### [facility] [address] [place] [address]Yjutgw Acidon 31-07-3339Cfzbff Acid Lvl1.6 mmol/LNormal0.5-2.2 [facility] HospitalComment on above:Performed By: #### [id number] #### [facility] [address], [place] [address]Fyzufs Levelon 49-31-5559Dpouso [Catalytic activity/Vol]8 U/L Eyr03-43TeyzusMckitrick HospitalComment on above:Performed By: #### [id number] #### [facility] [address], [place] [address]FW & PTTon 58-07-1037iCUU Coag (PPP) [Time]23.1 second(s)Low 25.1-36.5FMercy Health Kings Mills HospitalComment on above:Result Comment: Parameter 15 days [...] the same coagulation reagent and instrumentation as [facility]. Currently there are no coagulation studies available worldwide for children to 14 days, andno normal ranges. Heparin therapeutic range (represented by Anti-Factor Xa activity of 0.2 - 0.4 U/mL) corresponds to PTT of 56.6 - 109.0 sec.Performed By: #### [id number] #### [facility] [address], [place] [address]ZHP Coag (PPP) [Relative time]1.10 {INR}Invalid Interpretation CodeMckitrick HospitalComment on above:Result Comment: INR results are specifically intended to assess patients stabilized on long-term Anticoagulation therapy suggested INR???s ???Less Intensive Anticoagulation??? 2.0 ??? 3.0 Conventional Range 3.0 ??? 4.5Performed By: #### [id number] #### [facility] [address], [place] [address]UW Coag (PPP) [Time]12.3 second(s)Normal9.4-12.5Fisher St. Agnes HospitalComment on above:Result Comment: 15 days - 4 [...] the same coagulation reagent and instrumentation as [facility]. Currently there are no coagulation studies available worldwide for children to 14 days, andno normal ranges.Performed By: #### [id number] #### [facility] [address], [place] [address]Kys-Uasptyz Noteon 83-21-5545Dtf-Arrival NotePre-Arrival Note Pre-Arrival Summary Name: ruben Current Date: 01/16/2025 17:51:59 EST Gender: Female Date of : Age: 19 Pre-Arrival Type: EMS ETA: 01/16/2025 18:12:00 EST Primary Care Physician: Presenting Problem: fall Pre-Arrival User: Referring Source: Location: Completion Date/Time: 01/16/2025 17:42:00 [facility] Emergency Department Pre-Hospital Report Form Vital Signs: Pre-Hospital Report: Treatment in Route: Response to Treatment: Misc. Issues:NormalTrinity Health System East CampusEROLOGYOrdered By: Ghazal Morrell on 86-54-8361Uydi HCG ( test) QlNegative (01/16/25 7:26 PM)[facility] Man SeroTroponinon 50-88-2379Pcvntexq HS3.40 pg/mL Low10.10-27.10Mckitrick HospitalComment on above:Result Comment: The 95% CI (Confidence Interval) PPV (Positive Predictive Value) for myocardial infa rction in females is 38 pg/mL, in males 51 pg/mL. The results should be used in conjunction with clinical conditions of myocardial infarction. (Access High Sensitivity Troponin I Instructions For Use, Sugar Sundar, June 2018)Performed By: #### [id number] #### [facility] [address], [place] [address]aILZjm 38-70-2451tBRV19 mL/min/1.73 j1Twjqsr>=59Mckitrick HospitalComment on above:Performed By: #### [id number] #### [facility] [address], [place] [address]Dlrvhxe aminotransferase [Enzymatic activity/volume] in Serum or PlasmaOrdered By: Rd Brown on 16-00-7518HMJ [Catalytic activity/Vol] Alanine aminotransferase [Enzymatic activity/volume] in Serum or Plasma7 TrihealthAlbumin [Mass/volume] in Serum or Plasma by Bromocresol green (BCG) dye binding methoOrdered By: Rd Brown on 10-28-2024 Albumin BCG dye [Mass/Vol]Albumin [Mass/volume] in Serum or Plasma by Bromocresol green (BCG) dye binding metho3.5-5.7FPaulding County HospitalAlkaline phosphatase [Enzymatic activity/volume] in Serum or PlasmaOrdered By: Rd Brown on 76-17-9457XYX [Catalytic activity/Vol]Alkaline phosphatase [Enzymatic activity/volume] in Serum or Tumraq37-375MqsxkcrkiTrihealthAmphetamine Screen Ql (U)Ordered By: Rd Brown on 10-28-2024 Amphetamines Ql (U)Amphetamines screenNegativeTrihealth Appearance of UrineOrdered By: Rd Brown on 82-66-7468Iekkpzalxl (U)Urine appearanceAbnormalClearTrihealthAspartate aminotransferase [Enzymatic activity/volume] in Serum or PlasmaOrdered By: Rd Brown on 38-70-2908HDZ [Catalytic activity/Vol]Aspartate aminotransferase [Enzymatic activity/volume] in Serum or Zkjbhh83-36MxvkajwamTrihealthBacteria [Presence] in Urine by AutomatedOrdered By: Rd Brown on 48-31-4087Mtcscmnz Auto Ql (U)Bacteria [Presence] in Urine by AutomatedHighNone SeenTrihealthBarbiturates [Presence] in Urine by Screen methodOrdered By: Rd Brown on 10-08-1530Kanxfmnwiega Screen Ql (U) Barbiturates [Presence] in Urine by Screen methodNegSelect Medical Cleveland Clinic Rehabilitation Hospital, AvonBasic Metabolic Panelon 27-97-8517Seerg gap [Moles/Vol]19.5 mmol/L High6.0-15.0The [facility] Physician GroupComment on above:Performed By: #### PAP [id number], GCCHLAMTRI #### [facility] , #### OBUDS #### [facility] [address] [place] [address] USACalcium [Mass/Vol]10.4 mg/dLHigh8.6-10.3The [facility] Hospital Physician GroupComment on above:Performed By: #### PAP [id number], GCCHLAMTRI #### [facility] , #### OBUDS #### [facility] [address] [place] [address] USAChloride [Moles/Vol]94 mmol/HDso73-856Jft [facility] Physician GroupComment on above:Performed By: #### PAP [id number], GCCHLAMTRI #### [facility] , #### OBUDS #### [facility] [address] [place] [address] USACO2 [Moles/Vol]26.3 mmol/QVhmwri67.0-31.0The [facility] Physician GroupComment on above:Performed By: #### PAP [id number], GCCHLAMTRI #### [facility] , #### OBUDS #### [facility] [address] [place] [address] USACreatinine [Mass/Vol]0.91 mg/dLNormal0.60-1.20The [facility] Physician GroupComment on above:Performed By: #### PAP [id number], GCCHLAMTRI #### [facility] , #### OBUDS #### [facility] [address] [place] [address] USACreatinine Clr Calc Tntuzbkq143.62NormalThe [facility] Physician GroupComment on above:Performed By: #### PAP [id number], GCCHLAMTRI #### [facility] , #### OBUDS #### [facility] [address] [place] [address] USAGFR/1.73 sq M.predicted MDRD (S/P/Bld) [Vol rate/Area] mL/min/{1.73_m2}NormalThe [facility] Physician GroupComment on above:Performed By: #### PAP [id number], GCCHLAMTRI #### [facility] , #### OBUDS #### [place] [address] USAGlucose [Mass/Vol]91 mg/eEGnhguc46-076Bzd [facility] Physician GroupComment on above:Result Comment: Random Glucose Reference Range is dependent on time and content of last meal. Glucose of more than 200 mg/dL in a nonstressed, ambulatory subject supports the diagnosis of Diabetes Mellitus. ADA recommended reference rangePerformed By: #### PAP [id number], GCCHLAMTRI #### [facility] , #### OBUDS #### [place] [address] USAPotassium [Moles/Vol]2.8 mmol/LOff scale low3.5-5.1The [facility] Physician GroupComment on above:Result Comment: Critical Result Called to and read back by: MATT BUSH at: 10/28/2024 19:29:56 by:[id number] By: #### PAP [id number], GCCHLAMTRI #### [facility] , #### OBUDS #### [place] [address] USASodium [Moles/Vol]137 mmol/HAxfzaf911-572Jwf [facility] Physician GroupComment on above:Performed By: #### PAP [id number], GCCHLAMTRI #### [facility] , #### OBUDS #### [facility] [address] [place] [address] USAUrea nitrogen [Mass/Vol]21 mg/dLNormal7-25The [facility] Physician GroupComment on above:Performed By: #### PAP [id number], GCCHLAMTRI #### [facility] , #### OBUDS #### [place] [address] USABasophils Auto (Bld) [#/Vol]Ordered By: Rd Brown on 42-54-5487Wnhxhycfx (Bld) [#/Vol]Automated basophil count0.0-0.2FPaulding County HospitalBasophils/100 WBC Auto (Bld)Ordered By: Rd Borwn on 20-35-2366Fsnzvzzch/100 WBC (Bld)Automated basophil %.TrihealthBenzodiazepines Screen Ql (U)Ordered By: Rd Brown on 10-28-2024 Benzodiazepines Ql (U)Benzodiazepines [Presence] in Urine by Screen method NegativeTrihealthBenzoylecgonine [Presence] in Urine by Screen methodOrdered By: Rd Brown on 44-40-9160Itowvujlsvalskf Screen Ql (U) Benzoylecgonine [Presence] in Urine by Screen methodNegativeTrihealthBilirubin Test strip Ql (U)Ordered By: Rd Brown on 10-28-2024 Bilirubin Ql (U)Bilirubin.total [Presence] in Urine by Test stripNegative TrihealthBilirubin.direct [Mass/volume] in Serum or PlasmaOrdered By: Rd Brown on 51-03-7367Ywghbpwtq.direct [Mass/Vol] Bilirubin.direct [Mass/volume] in Serum or PlasmaHigh0.03-0.18FPaulding County HospitalBilirubin.total [Mass/volume] in Serum or PlasmaOrdered By: Rd Brown 62-86-8007Hzaxpmupr [Mass/Vol]Bilirubin.total [Mass/volume] in Serum or PlasmaHigh0.3-1.0TrihealthCalcium [Mass/volume] in Serum or PlasmaOrdered By: Rd Brown 72-31-4332Hwprvlh [Mass/Vol] Calcium [Mass/volume] in Serum or PlasmaHigh8.6-10.3FPaulding County HospitalCannabinoids [Presence] in Urine by Screen methodOrdered By: Rd Brown on 48-70-4862Bsxuvggsohph Screen Ql (U)Cannabinoids [Presence] in Urine by Screen methodHighNegativeTrihealthComment on above:These are unconfirmed results and should not be used for legal purposes. Drug Cut-Off Concentration: AMPH 1000 ng/mL NIKOLAS 200 ng/mL SHRAVAN 200 ng/mL COCM 300 ng/mL OP 300 ng/mL PCP 25 ng/mL THC 20 ng/mLCarbon dioxide, total [Moles/volume] in Serum or PlasmaOrdered By: Rd Brown on 47-26-7089ZF9 [Moles/Vol]Carbon dioxide, total [Moles/volume] in Serum or Dewgwm40.0-31.0TrihealthChloride [Moles/volume] in Serum or PlasmaOrdered By: Rd Brown on 13-48-9621Scebisla [Moles/Vol]Chloride [Moles/volume] in Serum or PlasmaLow 98-107TrihealthColor Auto (U)Ordered By: Rd Brown on 38-60-3882Nddtq (U)Color of Urine by AutoAbnormalYellowTrihealthComplete Blood Count Auto Diffon 03-09-8205Euledemvr (Bld) [#/Vol] 0.1 10*3/uLNormal0.0-0.2The [facility] Physician GroupComment on above:Result Comment: PERFORMED BY: [place] [address] PATHOLOGIST HAND MOLDER MEAT IDANIA GODOY M.D.Performed By: #### PAP [id number], GCCHLAMTRI #### [facility] , #### OBUDS #### [facility] [address] [place] [address] USABasophils/100 WBC (Bld)0.7 %Normal.The [facility] Physician GroupComment on above:Performed By: #### PAP [id number], GCCHLAMTRI #### [facility] , #### OBUDS #### [facility] [address] [place] [address] USAEosinophils (Bld) [#/Vol]0.1 10*3/uLNormal0.0-0.45The [facility] Physician GroupComment on above:Performed By: #### PAP [id number], GCCHLAMTRI #### [facility] , #### OBUDS #### [place] [address] USAEosinophils/100 WBC (Bld)0.6 %Normal.The [facility] Physician GroupComment on above:Performed By: #### PAP [id number], GCCHLAMTRI #### [facility] , #### OBUDS #### [place] [address] USAErythrocyte distribution width (RBC) [Ratio]13.4 %Normal 11.9-15.3The [facility] Physician GroupComment on above:Performed By: #### PAP [id number], GCCHLAMTRI #### [facility] , #### OBUDS #### [place] [address] USAHematocrit (Bld) [Volume fraction]49.2 %High34.0-46.4The [facility] Physician GroupComment on above:Performed By: #### PAP [id number], GCCHLAMTRI #### [facility] , #### OBUDS #### [place] [address] USAHemoglobin (Bld) [Mass/Vol]16.5 g/oWNlna24.8-15.4The [facility] Physician GroupComment on above:Performed By: #### PAP [id number], GCCHLAMTRI #### [facility] , #### OBUDS #### [place] [address] USALymphocytes (Bld) [#/Vol]2.9 10*3/uLNormal1.00-4.8The [facility] Physician GroupComment on above:Performed By: #### PAP [id number], GCCHLAMTRI #### [facility] , #### OBUDS #### [place] [address] USALymphocytes/100 WBC (Bld)14.7 %Normal.The [facility] Physician GroupComment on above:Performed By: #### PAP [id number], GCCHLAMTRI #### [facility] , #### OBUDS #### [address]H (RBC) [Entitic mass]28.7 ghVzmnns30.7-34.3The [facility] Physician GroupComment on above:Performed By: #### PAP [id number], GCCHLAMTRI #### [facility] , #### OBUDS #### [facility] [address] [place], [place] [address]V (RBC) [Entitic vol]85.7 zZRvyatr00-064Rog [facility] Physician GroupComment on above:Performed By: #### PAP [id number], GCCHLAMTRI #### [facility] , #### OBUDS #### [facility] [address] [place] [address] USAMean Corpuscular HGB Conc33.5 g/vYUxqbrj40.0-35.0The [facility] Physician GroupComment on above:Performed By: #### PAP [id number], GCCHLAMTRI #### [facility] , #### OBUDS #### [facility] [address] [place] [address] USAMonocytes (Bld) [#/Vol]1.2 10*3/uLHigh0.0-0.8The [facility] Physician GroupComment on above:Performed By: #### PAP [id number], GCCHLAMTRI #### [facility] , #### OBUDS #### [facility] [address] [place] [address] USAMonocytes/100 WBC (Bld)16.96 %Normal0.00-20.00The [facility] Physician GroupComment on above:Performed By: #### PAP [id number], GCCHLAMTRI #### [facility] , #### OBUDS #### [place] [address] USAMonocytes/100 WBC (Bld)5.9 %Normal.The [facility] Physician GroupComment on above:Performed By: #### PAP [id number], GCCHLAMTRI #### [facility] , #### OBUDS #### [facility] [address] [place] [address] USANeutrophils (Bld) [#/Vol]15.5 10*3/uLHigh1.8-7.7The [facility] Physician GroupComment on above:Performed By: #### PAP [id number], GCCHLAMTRI #### [facility] , #### OBUDS #### [place] [address] USANeutrophils/100 WBC (Bld)78.1 %Normal.The [facility] Physician GroupComment on above:Performed By: #### PAP [id number], GCCHLAMTRI #### [facility] , #### OBUDS #### [place] [address] USANRBC%0.1 /100{WBC}Normal0-0.5The [facility]ician Group Comment on above:Performed By: #### PAP [id number], GCCHLAMTRI #### [facility] , #### OBUDS #### [facility] [address] [place] [address] USAPlatelet mean volume (Bld) [Entitic vol]8.4 fLNormal 6.3-10.7The [facility] Physician GroupComment on above:Performed By: #### PAP [id number], GCCHLAMTRI #### [facility] , #### OBUDS #### [facility] [address] [place] [address] USAPlatelets (Bld) [#/Vol]333 10*3/nGPosrvg967-960Rxa [facility] Physician GroupComment on above:Performed By: #### PAP [id number], GCCHLAMTRI #### [facility] , #### OBUDS #### [facility] [address] [place] [address] USARBC (Bld) [#/Vol]5.74 10*6/uLHigh3.60-5.00The [facility] Physician GroupComment on above:Performed By: #### PAP [id number], GCCHLAMTRI #### [facility] , #### OBUDS #### [facility] [address] [place] [address] USAWBC (Bld) [#/Vol]19.8 10*3/uLHigh3.8-11.6The [facility] Physician GroupComment on above:Performed By: #### PAP 780553, GCCHLAMTRI #### [facility] , #### OBUDS #### [place] [address] USACreatinine [Mass/volume] in Serum or PlasmaOrdered By: Rd Brown on 75-98-7034Fdevugkcqf [Mass/Vol]Creatinine [Mass/volume] in Serum or Plasma0.60-1.20TrihealthDipstick and Microscopicon 64-63-9477Fgszxqtkbf (U)TurbidCritically abnormalClearThe [facility] Physician GroupComment on above:Order Comment: Name Collection Type:: Clean-Voided MidstreamPerformed By: #### ADDONUAPLUS, CUU, UHCG #### [place] [address] USABacteria,Urine1+HighNone SeenThe [facility] Comment on above:Order Comment: Name Collection Type:: Clean-Voided Midstream Performed By: #### ADDONUAPLUS, CUU, UHCG #### [place] [address] USABilirubin,UrineNegativeNormalNegativeRockledge Regional Medical Center Physician GroupComment on above:Order Comment: Name Collection Type:: Clean- Voided MidstreamPerformed By: #### ADDONUAPLUS, CUU, UHCG #### [facility] [address] [place] [address] USAColor (U)Light-OrangeCritically abnormalYellowRockledge Regional Medical Center Physician GroupComment on above:Order Comment: Name Collection Type:: Clean-Voided MidstreamPerformed By: #### ADDONUAPLUS, CUU, UHCG #### [facility] [address] [place] [address] USAGlucose Ql (U)NormalNormalNormalThKootenai Health Physician GroupComment on above:Order Comment: Name Collection Type:: Clean-Voided MidstreamPerformed By: #### ADDONUAPLUS, CUU, UHCG #### [facility] [address] [place] [address] USAHyaline Casts,Urine9 [LPF]High0-8The [facility] Physician GroupComment on above:Order Comment: Name Collection Type:: Clean-Voided MidstreamPerformed By: #### ADDONUAPLUS, CUU, UHCG #### [facility] [address] [place] [address] USAKetones Ql (U)3+HighNegativeRockledge Regional Medical Center Physician Group Comment on above:Order Comment: Name Collection Type:: Clean-Voided Midstream Performed By: #### ADDONUAPLUS, CUU, UHCG #### [facility] [address] [place], [place] [address] USALeukocyte esterase Test strip Ql (U)3+HighNegativeRockledge Regional Medical Center Physician GroupComment on above:Order Comment: Name Collection Type:: Clean-Voided MidstreamPerformed By: #### ADDONUAPLUS, CUU, UHCG #### [facility] [address] [place] [address] USAMucus,Urine4+Critically abnormalRockledge Regional Medical Center Physician GroupComment on above:Order Comment: Name Collection Type:: Clean-Voided MidstreamPerformed By: #### ADDONUAPLUS, CUU, UHCG #### [place] [address] USANitrite,UrineNegativeNormalNegativeThe [facility] Physician GroupComment on above:Order Comment: Name Collection Type:: Clean-Voided MidstreamPerformed By: #### ADDONUAPLUS, CUU, UHCG #### [place] [address] USAOccult Blood,Urine3+HighNegativeThe [facility] Physician GroupComment on above:Order Comment: Name Collection Type:: Clean-Voided MidstreamPerformed By: #### ADDONUAPLUS, CUU, UHCG #### [place] [address] USApH (U)8.0 [pH]Normal5.0-9.0The [facility] Comment on above:Order Comment: Name Collection Type:: Clean-Voided Midstream Performed By: #### ADDONUAPLUS, CUU, UHCG #### [place] [address] USAProtein (U) [Mass/Vol]100 mg/dLHighNegativeThe [facility] Physician GroupComment on above:Order Comment: Name Collection Type:: Clean- Voided MidstreamPerformed By: #### ADDONUAPLUS, CUU, UHCG #### [place] [address] USARBC,UrineInnumerableHigh0-4The [facility] Comment on above:Order Comment: Name Collection Type:: Clean-Voided Midstream Performed By: #### ADDONUAPLUS, CUU, UHCG #### [place] [address] USASpecificy [place],Urine1.004Pfduax5.001-1.030The [facility] Physician GroupComment on above:Order Comment: Name Collection Type:: Clean- Voided MidstreamPerformed By: #### ADDONUAPLUS, CUU, UHCG #### [place] [address] USASquamous Epithelial Cell,Urine1 [HPF]Normal0-2The [facility] Physician GroupComment on above:Order Comment: Name Collection Type:: Clean-Voided MidstreamPerformed By: #### ADDONUAPLUS, CUU, UHCG #### [facility] [address] [place] [address] USAUrobilinogen,Urine6 mg/dLHighNormalThKootenai Health Physician GroupComment on above:Order Comment: Name Collection Type:: Clean-Voided MidstreamPerformed By: #### ADDONUAPLUS, CUU, UHCG #### [place] [address] USAWBC,Urine50 [HPF]High0-4The [facility] Comment on above:Order Comment: Name Collection Type:: Clean-Voided Midstream Performed By: #### ADDONUAPLUS, CUU, UHCG #### [place] [address] USADrug Screen,Urineon 90-89-0866Xtmcuxegusr Screen,Urine NegativeNormalNegativeThe [facility] Physician GroupComment on above:Performed By: #### PAP [id number], GCCHLAMTRI #### [facility] , #### OBUDS #### [facility] [address] [place] [address] USABarbiturate Screen,UrineNegativeNormalNegativeThe [facility] Physician GroupComment on above:Performed By: #### PAP [id number], GCCHLAMTRI #### [facility] , #### OBUDS #### [facility] [address] [place], [place] [id number] USABenzodiazepines Screen,UrineNegativeNormalNegativeThe [facility] Physician GroupComment on above:Performed By: #### PAP [id number], GCCHLAMTRI #### [facility] , #### OBUDS #### [facility] [address] [place] [address] USACannabinoid Screen,UrinePositiveHighNegativeThe [facility] Physician GroupComment on above:Result Comment: These are unconfirmed results and should not be used for legal purposes. Drug Cut-Off Concentration: AMPH 1000 ng/mL NIKOLAS 200 ng/mL SHRAVAN 200 ng/mL COCM 300 ng/mL OP 300 ng/mL PCP 25 ng/mL THC 20 ng/mL PERFORMED BY: [place] [address] PATHOLOGIST HAND MOLDER MEAT IDANIA GODOY M.D.Performed By: #### PAP [id number], GCCHLAMTRI #### [facility] , #### OBUDS #### [place] [address] USACocaine Screen,UrineNegativeNormalNegativeThe [facility] Physician GroupComment on above:Performed By: #### PAP [id number], GCCHLAMTRI #### [facility] , #### OBUDS #### [place] [address] USAOpiate Screen,UrineNegativeNormalNegativeThe [facility] Physician GroupComment on above:Performed By: #### PAP [id number], GCCHLAMTRI #### [facility] , #### OBUDS #### [place] [address] USAPhencyclidine Screen,UrineNegativeNormalNegativeThe [facility] Physician GroupComment on above:Performed By: #### PAP [id number], GCCHLAMTRI #### [facility] , #### OBUDS #### [place] [address] USAECG 12 lead ECGon 35-61-4047JVN 12 lead ECGOHIOHEALTH GR[facility] [place] [address] [place] [address] Electrocardiograph Report Signed Patient: Pili Parikh MR#: [id number] : 2005 Acct:[id number] Age/Sex: 19 / F ADM Date: 10/28/24 Loc: ER Room: Type: [facility] ER Attending Dr: Ordering Provider: [...] sinus rhythm Confirmed by Robert BOLANOS DO ([id number]) on 10/28/2024 9:48:18 PM Referred By: Electronically Signed By: Robert BOLANOS DO Transcribed By: MUS Signed By Robert Bolanos DO 1 12/29/23 2148[facility] Physician GroupEosinophils Auto (Bld) [#/Vol] Ordered By: Rd Brown on 45-78-4293Xrcxvalqjbs (Bld) [#/Vol]Automated eosinophil count0.0-0.45TrihealthEosinophils/100 WBC Auto (Bld)Ordered By: Rd Brown on 75-46-7116Vwxpfmdfkmy/100 WBC (Bld) Automated eosinophil %.TrihealthEpithelial cells.squamous [#/area] in Urine sediment by Automated countOrdered By: Rd Brown on 71-14-3774Qucprhseeb cells.squamous Auto (Urine sed) [#/Area]Epithelial cells.squamous [#/area] in Urine sediment by Automated count0-2FPaulding County HospitalErythrocyte distribution width Auto (RBC) [Ratio]Ordered By: Rd Brown on 52-78-8563Tsesbcbfrju distribution width (RBC) [Ratio] Erythrocyte distribution width [Ratio] by Automated count11.9-15.3FPaulding County HospitalErythrocytes [#/area] in Urine sediment by Automated countOrdered By: Rd Brown on 60-32-4405GYS Auto (Urine sed) [#/Area] Erythrocytes [#/area] in Urine sediment by Automated countHigh04FPaulding County HospitalGlobulin Calc (S) [Mass/Vol]Ordered By: Rd Brown on 10-00-4252Iqhelzrf (S) [Mass/Vol]Serum globulin measurement by calculation (mass/volume)TrihealthGlucose [Mass/volume] in Serum or PlasmaOrdered By: Rd Brown on 49-32-0255Mjihqay [Mass/Vol]Glucose [Mass/volume] in Serum or Dolslx13-479SgropkqtqTrihealthComment on above:ADA recommended reference rangeRandom Glucose Reference Range is dependent on time and content of last meal. Glucose of more than 200 mg/dL in a nonstressed, ambulatory subject supports the diagnosisof Diabetes Mellitus. Glucose [Mass/volume] in Urine by Test stripOrdered By: Rd Brown on 81-96-7258Syycdbz Test strip (U) [Mass/Vol]Glucose [Mass/volume] in Urine by Test stripNormalTrihealthHC ( test) IA.rapid Ql (U)Ordered By: Rd Brown on 51-25-0324JML ( test) Ql (U)Urine human chorionic gonadotropin (hCG) detection by immunoassayTrihealthHC,Urineon 26-30-4389Fhcw HCG ( test) Ql (U)Negative NormalThe [facility] Physician GroupComment on above:Order Comment: Name Collection Type:: Clean-Voided MidstreamResult Comment: PERFORMED BY: [facility] [address] [place] [address] PATHOLOGIST HAND MOLDER MEAT IDANIA GODOY M.D.Performed By: #### ALIREZA RED [facility] #### [facility] [address] [place] [address] USAHematocrit Auto (Bld) [Volume fraction]Ordered By: Rd Brown on 50-57-2869Tiuexohppw (Bld) [Volume fraction]Hematocrit [Volume Fraction] of Blood by Automated iefbySjbr38.0-46.4FPaulding County HospitalHemoglobin Test strip Ql (U)Ordered By: Rd Brown on 10-28-2024 Hemoglobin Ql (U)Hemoglobin [Presence] in Urine by Test stripHighNegative TrihealthHemoglobin [Mass/volume] in BloodOrdered By: Rd Brown on 20-68-3887Mpgyqpjjiv (Bld) [Mass/Vol]Hemoglobin [Mass/volume] in RfgfbMfjo59.8-15.4FPaulding County HospitalHepatic Panelon 10-28-2024 Albumin [Mass/Vol]5.4 g/dLNormal3.5-5.7The [facility] Physician GroupComment on above:Performed By: #### PAP [id number], GCCHLAMTRI #### [facility] , #### OBUDS #### [facility] [address] [place] [address] USAAlbumin/Globulin [Mass ratio]1.5 {ratio}NormalThe [facility] Physician GroupComment on above:Performed By: #### PAP [id number], GCCHLAMTRI #### [facility] , #### OBUDS #### [place] [address] USAALP [Catalytic activity/Vol]78 U/EHonskm51-111Exd [facility] Physician GroupComment on above:Performed By: #### PAP [id number], GCCHLAMTRI #### [facility] , #### OBUDS #### [facility] [address] [place] [address] USAALT [Catalytic activity/Vol]48 U/LNormal7-52The [facility] Physician GroupComment on above:Performed By: #### PAP [id number], GCCHLAMTRI #### [facility] , #### OBUDS #### [facility] [address] [place] [address] USAAST [Catalytic activity/Vol]30 U/SYxmomw24-98Yeh [facility] Physician GroupComment on above:Performed By: #### PAP [id number], GCCHLAMTRI #### [facility] , #### OBUDS #### [facility] [address] [place] [address] USABilirubin [Mass/Vol]1.1 mg/dLHigh0.3-1.0The [facility] Physician GroupComment on above:Performed By: #### PAP [id number], GCCHLAMTRI #### [facility] , #### OBUDS #### [place] [address] USABilirubin,Indirect0.9 mg/dLNoFrye Regional Medical Center [facility] Campus Physician GroupComment on above:Performed By: #### PAP [id number], GCCHLAMTRI #### [facility] , #### OBUDS #### [place] [address] USABilirubin.indirect [Mass/Vol]0.20 mg/dLHigh0.03-0.18The [facility] Physician GroupComment on above:Performed By: #### PAP [id number], GCCHLAMTRI #### [facility] , #### OBUDS #### [place] [address] USAGlobulin (S) [Mass/Vol]3.5 g/dLNormParkwood Hospitale [facility] Physician GroupComment on above:Performed By: #### PAP [id number], GCCHLAMTRI #### [facility] , #### OBUDS #### [place] [address] USAProtein [Mass/Vol]8.9 g/dLNormal6.4-8.9The [facility] Physician GroupComment on above:Performed By: #### PAP [id number], GCCHLAMTRI #### [facility] , #### OBUDS #### [place] [address] USAHyaline casts [#/area] in Urine sediment by Automated countOrdered By: Rd Brown on 56-29-9804Tanpzky casts Auto (Urine sed) [#/Area]Hyaline casts [#/area] in Urine sediment by Automated countHigh0-8 TrihealthKetones Test strip Ql (U)Ordered By: Rd Brown on 08-57-7810Qsyhehu Ql (U)Ketones [Presence] in Urine by Test stripThe Surgical Hospital at Southwoods CenterLeukocyte esterase [Presence] in Urine by Test stripOrdered By: Rd Brown on 67-29-7220Vxnpykare esterase Test strip Ql (U)Leukocyte esterase [Presence] in Urine by Test stripHighNegativeTrihealthLeukocytes [#/area] in Urine sediment by Automated count Ordered By: Rd Brown on 80-05-0278YSD Auto (Urine sed) [#/Area]Leukocytes [#/area] in Urine sediment by Automated countHigh0-4FPaulding County HospitalLeukocytes [#/volume] corrected for nucleated erythrocytes in Blood by Automated counOrdered By: Rd Brown on 32-74-2282SJW corrected for nucl RBC Auto (Bld) [#/Vol]Leukocytes [#/volume] corrected for nucleated erythrocytes in Blood by Automated counHigh3.8-11.6FPaulding County HospitalLipaseon 24-87-8501Rtwtil [Catalytic activity/Vol]19.0 U/RKtvwld43.0-82.0The [facility] Physician GroupComment on above:Result Comment: PERFORMED BY: [place] [address] PATHOLOGIST HAND MOLDER MEAT IDANIA GODOY M.D.Performed By: #### PAP [id number], GCCHLAMTRI #### [facility] , #### OBUDS #### [place] [address] USALipase [Enzymatic activity/volume] in Serum or Plasma Ordered By: Rd Brown on 77-08-9250Uqwpts [Catalytic activity/Vol]Lipase [Enzymatic activity/volume] in Serum or Inyfdu42.0-82.0TrihealthLymphocytes Auto (Bld) [#/Vol]Ordered By: Rd Brown on 60-65-4336Uneizxzugvg (Bld) [#/Vol]Lymphocytes [#/volume] in Blood by Automated count1.00-4.8TrihealthLymphocytes/100 WBC Auto (Bld) Ordered By: Rd Brown on 86-01-8447Svgfqlrtdfw/100 WBC (Bld)Lymphocytes/100 leukocytes in Blood by Automated count.[facility] HospitalH Auto (RBC) [Entitic mass]Ordered By: Rd Brown on 35-79-7649DJM (RBC) [Entitic mass]MCH [Entitic mass] by Automated count24.7-34.3FOhio State East HospitalHC Auto (RBC) [Mass/Vol]Ordered By: Rd Brown on 46-46-1244OMAP (RBC) [Mass/Vol]MCHC [Mass/volume] by Automated count32.0-35.0TrihealthMCV Auto (RBC) [Entitic vol]Ordered By: Rd Brown on 10-28-2024 MCV (RBC) [Entitic vol]MCV [Entitic volume] by Automated yqvlb73-800OcewwotgxTrihealthMonocyte distribution width [Entitic volume] in Blood by AutomatedOrdered By: Rd Brown on 32-60-6961Cmuoedgr distribution width Auto (Bld) [Entitic vol]Monocyte distribution width [Entitic volume] in Blood by Automated0.00-20.00TrihealthMonocytes Auto (Bld) [#/Vol] Ordered By: Rd Brown on 95-42-9943Zhmwiyxys (Bld) [#/Vol]Automated blood monocyte countHigh0.0-0.8TrihealthMonocytes/100 WBC Auto (Bld)Ordered By: Rd Brown on 02-65-0876Cnfhppzqy/100 WBC (Bld)Automated monocyte %.TrihealthMucus [Presence] in Urine by AutomatedOrdered By: Rd Brown on 45-95-3124Pyphl Auto Ql (U)Mucus [Presence] in Urine by AutomatedAbnormalTrihealthNeutrophils Auto (Bld) [#/Vol]Ordered By: Rd Brown on 60-77-4676Vnbsijsmart (Bld) [#/Vol] Neutrophils [#/volume] in Blood by Automated countHigh1.8-7.7FPaulding County HospitalNeutrophils/100 WBC Auto (Bld)Ordered By: Rd Brown on 98-12-0939Piyzzazgewk/100 WBC (Bld)Automated neutrophil %.Fire[facility] Regional Medical CenterNitrite Test strip Ql (U)Ordered By: Rd Brown on 10-28-2024 Nitrite Ql (U)Nitrite [Presence] in Urine by Test stripNegativeTrihealthNo Panel InformationOrdered By: Rd Brown on 32-88-7736Urtuurhad GFR (CKD-EPI)> 60.0 mL/MinTrihealth Pharmacy Creatinine Clearance (Yuuv937.62[facility] Nucleated erythrocytes [Presence] in Blood by Automated countOrdered By: Rd Brown on 53-09-0639Gfqwflpje RBC Auto Ql (Bld)Nucleated erythrocytes [Presence] in Blood by Automated count0-0.5FPaulding County HospitalOpiates [Presence] in Urine by Screen methodOrdered By: Rd Brown on 10-28-2024 Opiates Screen Ql (U)Opiates [Presence] in Urine by Screen methodNegative TrihealthPhencyclidine Screen Ql (U)Ordered By: Rd Brown on 62-57-8074Veqbmroylhdnk Ql (U)Phencyclidine [Presence] in Urine by Screen methodNegativeTrihealthPlatelet mean volume Auto (Bld) [Entitic vol]Ordered By: Rd Brown on 30-22-6043Gdpmdoqx mean volume (Bld) [Entitic vol]Platelet mean volume [Entitic volume] in Blood by Automated count6.3-10.7FPaulding County HospitalPlatelets Auto (Bld) [#/Vol] Ordered By: Rd Brown on 42-92-9176Pswjyoyfd (Bld) [#/Vol]Platelets [#/volume] in Blood by Automated -930DoudexyybTrihealth Potassiumon 28-79-4181Idyybieoe [Moles/Vol]2.9 mmol/LOff scale low3.5-5.1The [facility] Physician GroupComment on above:Result Comment: Critical Result Called to and read back by: RYLAN BELL at: 10/28/2024 23:09:11 by:MO PERFORMED BY: [address] [address] PATHOLOGIST HAND MOLDER MEAT IDANIA GODOY M.D.Performed By: #### K #### [address] [place] [address] USAPotassium [Moles/volume] in Serum or PlasmaOrdered By: Rd Brown on 41-24-7974Pbbrzjlwp [Moles/Vol]Potassium [Moles/volume] in Serum or PlasmaCritically low3.5-5.1FPaulding County HospitalComment on above:Critical Result Called to and read back by: RYLAN BELL at: 10/28/2024 23:09:11 by:DHProtein Test strip (U) [Mass/Vol]Ordered By: Rd Brown on 78-55-5946Zqhqdkd (U) [Mass/Vol]Protein [Mass/volume] in Urine by Test stripHigh NegativeTrihealthProtein [Mass/volume] in Serum or PlasmaOrdered By: Rd Brown on 06-70-1385Vgdfoam [Mass/Vol]Protein [Mass/volume] in Serum or Plasma6.4-8.9TrihealthRBC Auto (Bld) [#/Vol]Ordered By: Rd Brown on 46-84-8120HKJ (Bld) [#/Vol] Erythrocytes [#/volume] in Blood by Automated countHigh3.60-5.00Samaritan Hospitalerum or plasma albumin/globulin mass ratioOrdered By: Rd Brown 18-20-5814Pfxoynb/Globulin [Mass ratio]Serum or plasma albumin/globulin mass ratioSamaritan Hospitalerum or plasma anion gap determinationOrdered By: Rd Brown 65-90-3346Ilroi gap [Moles/Vol]Serum or plasma anion gap determinationHigh6.0-15.0Samaritan Hospitalerum or plasma non-glucuronidated bilirubin measurement (mass/volume)Ordered By: Rd Brown on 71-01-3269Naukvmzhn.indirect [Mass/Vol] Serum or plasma non-glucuronidated bilirubin measurement (mass/volume)Samaritan Hospitalodium [Moles/volume] in Serum or PlasmaOrdered By: Rd Brown on 65-59-1500Lqiyri [Moles/Vol]Sodium [Moles/volume] in Serum or Awezlo542-407ChtnpccvdSamaritan Hospitalpecific gravity Test strip (U) [Rel density]Ordered By: Rd Brown on 13-50-0027Huylandj gravity (U) [Rel density]Specific gravity of Urine by Test strip1.001-1.030TrihealthUrea nitrogen [Mass/volume] in Serum or PlasmaOrdered By: Rd Brown on 16-25-8798Ecwu nitrogen [Mass/Vol]Urea nitrogen [Mass/volume] in Serum or Plasma7-25TrihealthUrine Cultureon 91-13-3990Osdnssra identified Cx Nom (U)75,000 colonies/ml mixed bacterial skin contaminants 2 Days PERFORMED BY: [place] [address] PATHOLOGIST HAND MOLDER MEAT IDANIA GODOY M.D.NormalRockledge Regional Medical Center Physician GroupComment on above: Performed By: #### ALIREZA RED TrinidadG #### [place] [address] USAUrine cultureOrdered By: Rd Brown on 10-28-2024 Bacteria identified Cx Nom (U)Urine cultureTrihealth Urobilinogen Test strip (U) [Mass/Vol]Ordered By: Rd Brown on 10-28-2024 Urobilinogen (U) [Mass/Vol]Urobilinogen [Mass/volume] in Urine by Test stripHigh NormalTrihealthWBC Auto (Bld) [#/Vol]Ordered By: Rd Brown on 44-95-0922UUW (Bld) [#/Vol]Leukocytes [#/volume] in Blood by Automated countHigh3.8-11.6FPaulding County HospitalpH Test strip (U)Ordered By: Rd Brown on 68-96-8096sK (U)pH of Urine by Test strip5.0-9.0TrihealthActivated partial thromboplastin time (aPTT) in platelet poor plasma by coagulation aOrdered By: Ania Watson on 95-88-3385mYDQ Coag (PPP) [Time]24.7 sLow25.1-36.5FPaulding County HospitalComment on above: A hematocrit value greater than 55% may lead to inaccurate results in coagulation testing. Patientshaving hematocrit values >55% require a special collection tube for coagulation studies. Please contact the laboratory at [phone] for redraw instructions.Calcium [Mass/volume] in Serum or Plasma Ordered By: Ania Watson on 62-15-3346Omdgamf [Mass/Vol]9.6 mg/dL8.6-10.3 TrihealthCarbon dioxide, total [Moles/volume] in Serum or PlasmaOrdered By: Ania Watson on 49-09-8098BS6 [Moles/Vol]18.5 mmol/LLow 21.0-31.0TrihealthChloride [Moles/volume] in Serum or PlasmaOrdered By: Ania Watson on 14-48-7046Zjgvpeti [Moles/Vol]99 mmol/L 98-107TrihealthCreatine kinase [Enzymatic activity/volume] in Serum or PlasmaOrdered By: Ania Watson on 75-77-7297WZ [Catalytic activity/Vol]33 U/O08-067HpqzqflmzTrihealthCreatinine [Mass/volume] in Serum or PlasmaOrdered By: Ania Watson on 08-03-2024 Creatinine [Mass/Vol]0.61 mg/dL0.60-1.20TrihealthGlucose [Mass/volume] in Serum or PlasmaOrdered By: Ania Watson on 04-98-9597Itomogx [Mass/Vol]91 mg/mD69-413OrdjpxyezTrihealthComment on above:ADA recommended reference rangeRandom Glucose Reference Range is dependent on time and content of last meal. Glucose of more than 200 mg/dL in a nonstressed, ambulatory subject supports the diagnosisof Diabetes Mellitus.INR in Platelet poor plasma by Coagulation assayOrdered By: Ania Watson on 95-33-4419SZE Coag (PPP) [Relative time]1.2 {INR}TrihealthComment on above:INR Therapeutic Range A) Pre- and [...] peptide B [Mass/Vol]Ordered By: Ania Watson on 97-88-8826Kicdyxzrgef peptide B (Bld) [Mass/Vol]19.0 pg/mL5-100TrihealthNo Panel InformationOrdered By: Ania Watson on 90-39-6875Ntfzcllaw GFR (CKD-EPI)> 60.0 mL/MinTrihealth Pharmacy Creatinine Clearance (Scpw251.09[facility] Potassium [Moles/volume] in Serum or PlasmaOrdered By: Ania Watson on 19-92-3322Gxcnsyekq [Moles/Vol]3.5 mmol/L3.5-5.1FPaulding County HospitalComment on above:Hemolysis is present at a level that could interfere with the result.Contact lab if redraw is requiredProthrombin time (PT)Ordered By: Ania Watson on 24-77-4835OZ Coag (PPP) [Time]13.3 sHigh9.0-12.9TrihealthComment on above:A hematocrit value greater than 55% may lead to inaccurate results in coagulation testing. Patientshaving hematocrit values >55% require a special collection tube for coagulation studies. Please c ontact the laboratory at [phone] for redraw instructions.Serum or plasma anion gap determinationOrdered By: Ania Watson on 93-90-5919Ecysa gap [Moles/Vol]20.0 mmol/LHigh6.0-15.0Samaritan Hospitalodium [Moles/volume] in Serum or PlasmaOrdered By: Ania Watson on 15-49-8708Iqxxza [Moles/Vol]134 mmol/CHzf381-273SqahgryecTrihealthTroponin I.cardiac [Mass/volume] in Serum or Plasma by Detection limit <= 0.01 ng/Ordered By: Ania Watson on 80-11-5152Vhtjifyv I.cardiac DL <= 0.01 ng/mL [Mass/Vol] 7.0 pg/mL0.0-15.0TrihealthUrea nitrogen [Mass/volume] in Serum or PlasmaOrdered By: Ania Watson on 26-22-2568Nwgf nitrogen [Mass/Vol] 20 mg/dL7-25TrihealthB hCG Qualon 88-37-4759Rwxk HCG ( test) QlNegativeNormalMckitrick HospitalComment on above: Performed By: #### [id number] #### [facility] [address], [place] [address]LVSzc 78-54-5339Iimwf gap [Moles/Vol]14 mmol/LNormal6-16Mckitrick HospitalComment on above:Performed By: #### [id number] #### [facility] [address], [place] [address]Wlehorp [Mass/Vol]9.7 mg/dLNormal8.9-11.1FMercy Health Kings Mills HospitalComment on above:Performed By: #### [id number] #### [facility] [address], [place] [address]Wsgbmuof [Moles/Vol]102 mmol/IDdcesg017-553KfxfijMckitrick HospitalComment on above:Performed By: #### [id number] #### [facility] [address], [place] [address]KG8 [Moles/Vol]24 mmol/ESavdyd92-78ZyelsxMckitrick Hospital Comment on above:Performed By: #### [id number] #### [facility] [address], [place] [address]Sqcroaxasq [Mass/Vol]0.7 mg/dLNormal0.5-1.3FMercy Health Kings Mills HospitalComment on above:Performed By: #### [id number] #### [facility] [address], [place] [address]Fzpvuvv [Mass/Vol]96 mg/mGQshcjq86-255TvbkmlMckitrick HospitalComment on above:Performed By: #### [id number] #### [facility] [address], [place] [address]Vcquntxqn [Moles/Vol]3.3 mmol/LLow3.5-5.3FMercy Health Kings Mills HospitalComment on above:Performed By: #### [id number] #### [facility] [address], [place] [address]Lfbyln [Moles/Vol]137 mmol/EHwadtu917-382ZxwtvbMckitrick HospitalComment on above:Performed By: #### [id number] #### [facility] [address], [place] [address]Kron nitrogen [Mass/Vol]18 mg/dLNormal5-21Mckitrick HospitalComment on above:Performed By: #### [id number] #### [facility] [address], [place] [address]Uyxw nitrogen/Creatinine [Mass ratio]26 No ZuzpuKdao63-97HzueavMckitrick HospitalComment on above:Performed By: #### [id number] #### [facility] [address], [place] [address]OSR w/ Auto Diffon 92-81-2916Flrtbnrno/100 WBC (Bld)0.3 %Normal 0.0-2.0Mckitrick HospitalComment on above:Performed By: #### [id number] #### [facility] [address], [place] [address]Iirappnis/Leukocytes Auto (Bld) [Pure # fraction]0.1 E9/LNormal 0.0-0.2FMercy Health Kings Mills HospitalComment on above:Performed By: #### [id number] #### [facility] [address] [place] [address]Defukshwvqh (Bld) [#/Vol]0.1 E9/LNormal0.0-0.5FMercy Health Kings Mills HospitalComment on above:Performed By: #### [id number] #### [facility] [address], [place] [address]Bwuzwqjcbqx/100 WBC (Bld)0.4 %Normal0.0-8.0Mckitrick HospitalComment on above:Performed By: #### [id number] #### [facility] [address], [place] [address]Rtkggxknkzq distribution width (RBC) [Ratio]13.3 %Normal 10.9-14.2FMercy Health Kings Mills HospitalComment on above:Performed By: #### [id number] #### [facility] [address] [place] [address]Wqdlbcfvdb (Bld) [Volume fraction]43.9 %Ruhymk16.0-46.0Mckitrick HospitalComment on above:Performed By: #### [id number] #### [facility] [address] [place] [address]Rjpcuhixda (Bld) [Mass/Vol]14.5 g/pBUuhmzk69.0-16.0Mckitrick HospitalComment on above:Performed By: #### [id number] #### [facility] [address] [place] [address]Fwhbsoevhza (Bld) [#/Vol]2.3 E9/LNormal1.0-4.0Mckitrick HospitalComment on above:Performed By: #### [id number] #### [facility] [address] [place] [address]Ribhsomzyqs/100 WBC (Bld)13.7 %Low14.0-50.0Mckitrick HospitalComment on above:Performed By: #### [id number] #### [facility] [address] [place] [address]VYA (RBC) [Entitic mass]28.3 boQocxks48.0-34.0Mckitrick HospitalComment on above:Performed By: #### [id number] #### [facility] [address] [place] [address]EDOJ (RBC) [Mass/Vol]33.0 g/hHZllxiw29.4-36.0Mckitrick HospitalComment on above:Performed By: #### [id number] #### [facility] [address] [place] [address] [id number] (RBC) [Entitic vol]85.8 lLStdfup41.0-100.0[facility]itrick HospitalComment on above:Performed By: #### [id number] #### [facility] [address] [place] [address] 20406Ujnywhdpq (Bld) [#/Vol]1.2 E9/LHigh0.2-1.0[facility] HospitalComment on above:Performed By: #### [id number] #### [facility] [address] [place] [address] 75976Kohyexgwkja (Bld) [#/Vol]13.1 E9/LHigh2.0-7.5FMercy Health Kings Mills HospitalComment on above:Performed By: #### [id number] #### [facility] [address] [place] [address] 76298Rkfozfuhxlp/100 WBC (Bld)78.5 %High36.0-75.0[facility]rick HospitalComment on above:Performed By: #### [id number] #### [facility] [address] [place] [address] 87123Mzxxswji mean volume (Bld) [Entitic vol]8.2 fLNormal6.4-10.8 [facility] HospitalComment on above:Performed By: #### [id number] #### [facility] [address] [place] [address] 22028Rucruhqrc (Bld) [#/Vol]246.0 E9/FLzjvjq397.0-500.0[facility] HospitalComment on above:Performed By: #### [id number] #### [facility] [address] [place] [address] 48762FDF (Bld) [#/Vol]5.1 E12/LNormal4.3-5.9[facility] HospitalComment on above:Performed By: #### [id number] #### [facility] [address] [place] [address] 22195ISE corrected for nucl RBC Auto (Bld) [#/Vol]16.7 E9/LHigh 4.0-11.0[facility] HospitalComment on above:Result Comment: Peripheral smear review performed.Performed By: #### [id number] #### [facility] [address], [place] [address]DI Clinical Summaryon [id number] Clinical SummaryED Clinical Summary [address] [address] ED Clinical Summary Person Information Name: PILI PARIKH/[place] Age: 19 Years : 2005 Sex: Female Language: Rwandan PCP: MODESTA CHAND CNP Marital Status: Single [...] 08/01/2024 12:09:48 08/01/2024 12:09:48 ADDRESS: [address] [facility] [id number] PHYS DOC NOTES: MEDICAL INFORMATION: Prescriptions Given: New Medications [id number], [address], [place] [id number], [phone] potassium chloride (potassium chloride 20 mEq ER [...] up: With: Address: When: MODESTA CHAND [address] [place] [phone] [email or web address] (1) In 3 days 08/04/2024 Comments: Make sure to fill the prescriptions that was prescribed from [facility]. Fill the new prescription for potassium. Follow-up with your primary doctor as discussed. Return to the emergency room if your vomiting recurs, abdominal pain recurs or any new symptoms. DIAGNOSIS: 1:Vomiting and diarrhea; 2:Hypokalemia; 3:Leukocytosis; Diarrhea, unspecified [facility] CenterED Note-Physicianon [id number] Note-Physician ED Note-Physician Basic Information Time Seen: August Bermudez M.D. 08/01/2024 09:27 Chief Complaint just left [place] [facility], seen multiple times for n/v lightheaded. hx cyclic vomiting, state its not that. has medication at [facility] but wanted to come here instead for [...] Hospital and they did send medication to [facility] however she feels she is dehydrated. The [...] and Complexity of Problems Differential Diagnosis: [] [facility] Data External documents reviewed: [] [...] day(s), # 4 tab(s), Refills(s) 0, Pharmacy: [facility]/pharmacy #[id number], 157, cm, 08/01/24 9:34:00 EDT, Height/Length [...] Disposition Dis (more content not included)...[facility] CenterComment on above:Result Comment: Electronically Signed By: August Bermudez M.D.\.br\Date and Time Signed: 08/01/2411:58 EDTED Patient Summaryon [id number] Patient SummaryED Patient Summary [address] [address] Patient Discharge Instructions Person Information Name: PILI PARIKH Age: 19 Years Arrival Date: 08/01/2024 09:23:00 Discharge Diagnosis: 1:Vomiting and diarrhea; 2:Hypokalemia; 3:Leukocytosis; Diarrhea, unspecified Primary Care Physician: MODESTA CHAND CNP Provider Information Primary Provider: August Bermudez M.D. Advanced Bias Machine Operator:None The exam and treatment you received in the Emergency Department were for an urgent problem and are not intended as complete care. It is important that you follow up with a doctor, nurse practitioner,or physician?s wet process assistant head miller for ongoing care. If your symptoms become worse or you do not improve as expected and you are unable to reach your usual health care provider, you should return to the Emergency Department. We are available 24 hours a day. PILI PARIKH has been given the following list of patient education materials, prescriptions andfollow-up instructions: Follow-up Instructions: With: Address: When: MODESTA CHAND [address] [place] [phone] Business (1) In 3 days 08/04/2024 Comments: Make sure to fill the prescriptions that was prescribed from [facility]. Fill the new prescription for potassium. Follow-up [...] opioids can be used to help relieve pxmkwhwb-hf-ucqoqg pain and are often prescribed following a [...] your community drug take- back program or [employer] mail-back program, or flush them down the to (more content not included)...NormalMckitrick HospitalHep Func Panelon 53-44-3447Txouswm [Mass/Vol]5.1 g/dLHigh3.3-5.0[facility] Comment on above:Performed By: #### [id number] #### [facility] [address], [place] [address]Xlhblcu/Globulin (S) [Mass conc ratio]1.2Zgmuog6.1-2.2FMercy Health Kings Mills HospitalComment on above:Performed By: #### [id number] #### [facility] [address], [place] [address]HJB [Catalytic activity/Vol]75 Int._Unit/PGpbhft13-66LejzgpMckitrick HospitalComment on above:Performed By: #### [id number] #### [facility] [address], [place] [address]ZQZ No additional P-5'-P [Catalytic activity/Vol]45 Int._Unit/L Normal6-46[facility] HospitalComment on above:Performed By: #### [id number] #### [facility] [address], [place] [address]WAU [Catalytic activity/Vol]25 Int._Unit/LNormal5-43[facility] HospitalComment on above:Performed By: #### [id number] #### [facility] [address], [place] [address]Idhsloqdi [Mass/Vol]0.9 mg/dLNormal0.0-1.1FMercy Health Kings Mills HospitalComment on above:Performed By: #### [id number] #### [facility] [address], [place] [address]Qxejyqlui.direct [Mass/Vol]0.1 mg/dLNormal0.0-0.4FMercy Health Kings Mills HospitalComment on above:Performed By: #### [id number] #### [facility] [address] [place] [address]Kfhtkindu.indirect [Mass or moles/Vol]0.8 mg/dLNormal0.1-0.9 [facility] HospitalComment on above:Performed By: #### [id number] #### [facility] [address] [place] [address]65[address]Qjwesint (S) [Mass/Vol]3.0 g/dLNormal1.4-4.0[facility] HospitalComment on above:Performed By: #### [id number] #### [facility] [address] [place] [address] 37[address]Qodojox [Mass/Vol]8.1 g/dLHigh6.0-7.8[facility] HospitalComment on above:Performed By: #### [id number] #### [facility] [address], [place] [address]Ssmfpu Levelon 81-95-4709Jobpzf [Catalytic activity/Vol]27 U/L Nwkdpm51-60WwtuasMckitrick HospitalComment on above:Performed By: #### [id number] #### [facility] [address], [place] [address]Roalputaife 46-50-1685Tskmmuzli [Mass/Vol]2.2 mg/dLNormal 1.3-2.4FMercy Health Kings Mills HospitalComment on above:Performed By: #### [id number] #### [facility] [address], [place] [address]LS & PTTon 50-08-4171iELQ Coag (PPP) [Time]31.2 second(s)Normal 25.1-36.5Freilly [facility]. Agnes HospitalComment on above:Result Comment: Parameter 15 days [...] the same coagulation reagent and instrumentation as [facility]. Currently there are no coagulation studies available worldwide for children to 14 days, andno normal ranges. Heparin therapeutic range (represented by Anti-Factor Xa activity of 0.2 - 0.4 U/mL) corresponds to PTT of 56.6 - 109.0 sec.Performed By: #### [id number] #### [facility] [address], [place] [address]YDZ Coag (PPP) [Relative time]1.11 {INR}Invalid Interpretation CodeGinoThe Sheppard & Enoch Pratt HospitalComment on above:Result Comment: INR results are specifically intended to assess patients stabilized on long-term Anticoagulation therapy suggested INR?s ?Less Intensive Anticoagulation? 2.0 ? 3.0 Conventional Range 3.0 ? 4.5Performed By: #### [id number] #### [facility] [address], [place] [address]SJ Coag (PPP) [Time]12.5 second(s)Normal9.4-12.5[facility] Agnes HospitalComment on above:Result Comment: 15 days - 4 [...] the same coagulation reagent and instrumentation as [facility]. Currently there are no coagulation studies available worldwide for children to 14 days, andno normal ranges.Performed By: #### [id number] #### [facility] [address], [place] [address]Cmsqefde 0 Hr.on 26-33-6456Ovsiukdy HS5.20 pg/mLLow10.10-27.10 [facility] HospitalComment on above:Result Comment: The 95% CI (Confidence Interval) PPV (Positive Predictive Value) for myocardial infarction in females is 38 pg/mL, in males 51 pg/mL. The results should be used in conjunction with clinical conditions of myocardial infarction. (Access High Sensitivity Troponin I Instructions For Use, [place], June 2018)Performed By: #### [id number] #### [facility] [address], [place] [address]qDEPwj 88-98-3169pJKK317 mL/min/1.73 z2Ymymlr>=59[facility] HospitalComment on above:Order Comment: Order added by Discern Expert. Performed By: #### [id number] #### [facility] [address], [place] [address]KVShk 84-81-8209Apogd gap [Moles/Vol]13 mmol/LNormal6-16[facility] HospitalComment on above:Performed By: #### [id number] #### [facility] [address], [place] [address]Zvmabgh [Mass/Vol]9.4 mg/dLNormal8.9-11.1FMercy Health Kings Mills HospitalComment on above:Performed By: #### [id number] #### [facility] [address], [place] [address]Dkovfjdo [Moles/Vol]107 mmol/LBrzcwe527-897KokvzbMckitrick HospitalComment on above:Performed By: #### [id number] #### [facility] [address], [place] [address]UL9 [Moles/Vol]25 mmol/OEtorvk56-72CfuxlcMckitrick Hospital Comment on above:Performed By: #### [id number] #### [facility] [address], [place] [address]Phmakzqrdl [Mass/Vol]0.8 mg/dLNormal0.5-1.3FMercy Health Kings Mills HospitalComment on above:Performed By: #### [id number] #### [facility] [address], [place] [address]Tbzvier [Mass/Vol]89 mg/gTPdlpjp98-952HbdzxyMckitrick HospitalComment on above:Performed By: #### [id number] #### [facility] [address], [place] [address]Vttipxyiz [Moles/Vol]3.6 mmol/LNormal3.5-5.3FMercy Health Kings Mills HospitalComment on above:Performed By: #### [id number] #### [facility] [address], [place] [address]Aexfap [Moles/Vol]141 mmol/IRdmdzv420-867GoyrssMckitrick HospitalComment on above:Performed By: #### [id number] #### [facility] [address], [place] [address]Umoc nitrogen [Mass/Vol]19 mg/dLNormal5-21[facility] HospitalComment on above:Performed By: #### [id number] #### [facility] [address], [place] [address]Elng nitrogen/Creatinine [Mass ratio]24 No XszofYijd41-87BpahmkMckitrick HospitalComment on above:Performed By: #### [id number] #### [facility] [address], [place] [address]OUS w/ Auto Diffon 86-44-3677Azgxzrnui/100 WBC (Bld)0.4 %Normal 0.0-2.0[facility] HospitalComment on above:Performed By: #### [id number] #### [facility] [address] [place] [address]Swvlxfuun/Leukocytes Auto (Bld) [Pure # fraction]0.1 E9/LNormal 0.0-0.2FMercy Health Kings Mills HospitalComment on above:Performed By: #### [id number] #### [facility] [address] [place] [address]Qtwxabkspfz (Bld) [#/Vol]0.1 E9/LNormal0.0-0.5FMercy Health Kings Mills HospitalComment on above:Performed By: #### [id number] #### [facility] [address] [place] [address]Hqghguaonuu/100 WBC (Bld)0.5 %Normal0.0-8.0[facility] HospitalComment on above:Performed By: #### [id number] #### [facility] [address] [place] [address]Yqfwdfeltxq distribution width (RBC) [Ratio]13.2 %Normal 10.9-14.2FMercy Health Kings Mills HospitalComment on above:Performed By: #### [id number] #### [facility] [address] [place] [address]Gmekkcfrkm (Bld) [Volume fraction]39.6 %Blmxro35.0-46.0[facility] HospitalComment on above:Performed By: #### [id number] #### [facility] [address] [place] [address]Pbdvplueed (Bld) [Mass/Vol]13.7 g/gKZnxkdq02.0-16.0[facility] HospitalComment on above:Performed By: #### [id number] #### [facility] [address] [place] [address]Yltdnnyigfv (Bld) [#/Vol]2.3 E9/LNormal1.0-4.0[facility] HospitalComment on above:Performed By: #### [id number] #### [facility] [address] [place] [address]Xigrkxzdhtr/100 WBC (Bld)14.1 %Wulleh14.0-50.0[facility] HospitalComment on above:Performed By: #### [id number] #### [facility] [address] [place] [address] 43280PXE (RBC) [Entitic mass]29.4 mdJaygne26.0-34.0[facility] HospitalComment on above:Performed By: #### [id number] #### [facility] [address] [place] [address]YKYS (RBC) [Mass/Vol]34.5 g/lVWdlabf04.4-36.0[facility] HospitalComment on above:Performed By: #### [id number] #### [facility] [address] [place] [address]OJB (RBC) [Entitic vol]85.3 iVOpzqou50.0-100.0[facility] HospitalComment on above:Performed By: #### [id number] #### [facility] [address] [place] [address]Kebqpnlsf (Bld) [#/Vol]1.2 E9/LHigh0.2-1.0[facility] HospitalComment on above:Performed By: #### [id number] #### [facility] [address] [place] [address]Vsddvfpuota (Bld) [#/Vol]12.6 E9/LHigh2.0-7.5FMercy Health Kings Mills HospitalComment on above:Performed By: #### [id number] #### [facility] [address] [place] [address]Eliarjufrav/100 WBC (Bld)77.5 %High36.0-75.0[facility] HospitalComment on above:Performed By: #### [id number] #### [facility] [address], [place] [address]Joukhtom904.0 E9/UDgukbo639.0-500.0[facility] Comment on above:Performed By: #### [id number] #### [facility] [address], [place] [address]Ddeaxskz mean volume (Bld) [Entitic vol]8.1 fLNormal6.4-10.8 [facility] HospitalComment on above:Performed By: #### [id number] #### [facility] [address], [place] [address]JWU (Bld) [#/Vol]4.7 E12/LNormal4.3-5.9[facility] HospitalComment on above:Performed By: #### [id number] #### [facility] [address], [place] [address]GWE corrected for nucl RBC Auto (Bld) [#/Vol]16.2 E9/LHigh 4.0-11.0[facility] HospitalComment on above:Performed By: #### [id number] #### [facility] [address] [place] [address]43[address]VDOKKKUOLIwesxfa By: Manish Sales on 07-94-4648Jdttadb [Mass/Vol]4.7 g/dLNormal3.3 - 5.0 gm/dLRemisol ChemAlbumin/Globulin [Mass ratio] 1.7 {ratio}Normal1.1 - 2.2Remisol ChemALP [Catalytic activity/Vol]73 [iU]/d Yqkebi36 - 98 Int._Unit/LRemisol ChemALT No additional P-5'-P [Catalytic activity/Vol]46 [iU]/dNormal6 - 46 Int._Unit/LRemisol ChemAnion gap [Moles/Vol] 13 mmol/LNormal6 - 16 mEq/LRemisol ChemAST [Catalytic activity/Vol]24 [iU]/d Normal5 - 43 Int._Unit/LRemisol ChemBilirubin [Mass/Vol]0.7 mg/dLNormal0.0 - 1.1 mg/dLRemisol ChemBilirubin.direct [Mass/Vol]0.1 mg/dLNormal0.0 - 0.4 mg/dL Remisol ChemBilirubin.indirect [Mass or moles/Vol]0.6 mg/dLNormal0.1 - 0.9 mg/dL Remisol ChemCalcium [Mass/Vol]9.4 mg/dLNormal8.9 - 11.1 mg/dLRemisol Chem Chloride [Moles/Vol]107 mmol/GVeugan607 - 111 mmol/LRemisol ChemCO2 [Moles/Vol] 25 mmol/CZmzuqb81 - 31 mmol/LRemisol ChemCreatinine [Mass/Vol]0.8 mg/dLNormal0.5 - 1.3 mg/dLRemisol QecgoADB821 mL/min/1.73 b8Zzgupk>=59mL/min/1.73 l0Vaubuhh ChemGlobulin (S) [Mass/Vol]2.8 g/dLNormal1.4 - 4.0 gm/dLRemisol ChemGlucose [Mass/Vol]89 mg/zXRsanpr11 - 199 mg/dLRemisol ChemLipase [Catalytic activity/Vol]10 U/LLow13 - 58 unit/LRemisol ChemMagnesium [Mass/Vol]2.2 mg/dL Normal1.3 - 2.4 mg/dLRemisol ChemPotassium [Moles/Vol]3.6 mmol/LNormal3.5 - 5.3 mmol/LRemisol ChemProtein [Mass/Vol]7.5 g/dLNormal6.0 - 7.8 gm/dLRemisol Chem Sodium [Moles/Vol]141 mmol/NYjufdu570 - 145 mmol/LRemisol ChemUrea nitrogen [Mass/Vol]19 mg/dLNormal5 - 21 mg/dLRemisol ChemUrea nitrogen/Creatinine [Mass ratio]24 mg/zqRdpk82 - 20Remisol ChemED Clinical Summaryon [id number] Clinical SummaryED Clinical Summary [address] [address] ED Clinical Summary Person Information Name: PILI PARIKH/[place] Age: 19 Years : 2005 Sex: Female Language: Rwandan PCP: MODESTA ARCHIBALD Marital Status: Single Visit [...] 07/30/2024 22:55:49 07/30/2024 22:55:49 07/30/2024 22:55:49 ADDRESS: [address] [place] [id number] PHYS DOC NOTES: MEDICAL INFORMATION: Prescriptions Given: New Medications [facility]/pharmacy #[id number], [address], [place] [id number], [phone] ondansetron (Zofran ODT 4 mg Tab-Dis) 1 Tablets By Mouth every 8 hours as needed Nausea/Vomiting. Refills: 0. Medications to Continue Taking That Have Changed [facility]/pharmacy #[id number], [address], [place] [id number], [phone] START: promethazine (Phenergan 12.5 mg Supp) 1 [...] Follow up: With: Address: When: FAMILIA ROSESON [facility] [address] [address] Business (1) In 3 days 08/02/2024 DIAGNOSIS: AP (abdominal pain); N&V (nausea and vomiting)[facility] ED Note-Physicianon [id number] Note-PhysicianED Note-Physician Basic Information Time Seen: Dustin [...] and Complexity of Problems Differential Diagnosis: [] [facility] Data External documents reviewed: N/A [...] PRN Nausea/Vomiting, # 16 tab(s), Refills(s) 0, [id number], cm, 07/30/24 19:37:00 EDT, Height/Length Dosing, 96.1, kg, 07/30/24 19:37:00 EDT, Weight Dosing promethazine, 12.5 mg = 1 tab(s), Oral, q8hr, PRN as needed for nausea/vomiting, second line, # 10 tab(s), Refills(s) 0, [id number], 157, cm, 07/30/24 19:37:00 EDT, Height/Length Dosing, 96.1, kg, 07/30/24 19:37:00 EDT, Weight Dosing promethazine, 12.5 mg = 1 supp, Rectal, q8hr, PRN as needed for nausea/vomiting, 3rd line, # 6 EA, Refills(s) 0, [id number], 157, cm, 07/30/24 19:37:00 EDT, Height/Length [...] Level Saline Lock Insert Medications Administered Given xxhu46XUC [F] 1000 mg + GenDil 100 mL, IV Piggyback famotidine 10 mg/mL IV Lisa, 20 mg, IV Push NS 1000 ml Bolus, 1000 mL, IV coprqr10Hhetuuonw [F] 12.5 mg + Sodium Chloride 0.9% IV Lisa 50 mL [F] 50 mL, IV Piggyback Disposition Plan Discharge Prescription List Prescriptions Phenergan 12.5 mg Supp, 12.5 mg= 1 supp, Rectal, q8hr, PRN promethazine 12.5 mg oral tablet, 12.5 mg= 1 tab(s), Oral, q8hr, PRN Zofran ODT 4 mg Tab-Dis, 4 mg= 1 tab(s), Or (more content not included)...Normal [facility] HospitalComment on above:Result Comment: Electronically Signed By: Dustin Villalobos DO\.br\Date and Time Signed: 07/30/24 22:50 EDTED Patient Summaryon [id number] Patient SummaryED Patient Summary [address] [address] Patient Discharge Instructions Person Information Name: PILI PARIKH Age: 19 Years Arrival Date: 07/30/2024 19:26:13 Discharge Diagnosis: AP (abdominal pain); N&V (nausea and vomiting) Primary Care Physician: MODESTA ARCHIBALD Provider Information Primary Provider: Dustin Villalobos DO Advanced Bias Machine Operator:None The exam and treatment you received in the Emergency Department were for an urgent problem and are not intended as complete care. It is important that you follow up with a doctor, nurse practitioner,or physician?s wet process assistant head miller for ongoing care. If your symptoms become worse or you do not improve as expected and you are unable to reach your usual health care provider, you should return to the Emergency Department. We are available 24 hours a day. PILI PARIKH has been given the following list of patient education materials, prescriptions andfollow-up instructions: Follow-up Instructions: With: Address: When: FAMILIA CHAND [facility] [address] [id number] Business (1) In 3 days 08/02/2024 In the event that this physician does not participate in your insurance network, please consult with your insurance company to find a nearby participating provider. Patient Education Materials: Nausea and Vomiting, Adult A MESSAGE TO ALL PATIENTS REGARDING OPIOIDS PRESCRIPTION OPIOIDS: WHAT YOU NEED TO KNOW Prescription opioids can be used to help relieve fzvtgkcm-is-rcnedj pain and are often prescribed following a [...] your community drug take- back program or [employer] mail-back program, or flush them down the toilet, following guidance from the Food and Drug Administration (www.fda.gov/Drugs/ResourcesForYou). ? Visit www.cdc.gov/drugoverdose to learn about the risks of opioids abuse and overdose. ? If you believe you may be struggling with addiction, tell your health career technology teacher and ask for guidance or call [facility] (more content not included)...[facility] CenterHEMATOLOGYOrdered By: SYSTEM SYSTEM on 35-32-1954Cupumpshy/100 WBC (Bld)0.4 %Normal0.0 - 2.0 %Remisol HemeBasophils/Leukocytes Auto (Bld) [Pure # fraction]0.1 E9/LNormal0.0 - 0.2 E9/LRemisol HemeEosinophils (Bld) [#/Vol]0.1 E9/LNormal0.0 - 0.5 E9/LRemisol HemeEosinophils/100 WBC (Bld)0.5 %Normal0.0 - 8.0 %Remisol HemeErythrocyte distribution width (RBC) [Ratio]13.2 %Udnruq62.9 - 14.2 %Remisol HemeHematocrit (Bld) [Volume fraction]39.6 %Oxwzor86.0 - 46.0 %Remisol HemeHemoglobin (Bld) [Mass/Vol]13.7 g/wWObulyt62.0 - 16.0 gm/dLRemisol HemeLymphocytes (Bld) [#/Vol] 2.3 E9/LNormal1.0 - 4.0 E9/LRemisol HemeLymphocytes/100 WBC (Bld)14.1 %Normal 14.0 - 50.0 %Remisol HemeMCH (RBC) [Entitic mass]29.4 kdHmvwgd88.0 - 34.0 pg Remisol HemeMCHC (RBC) [Mass/Vol]34.5 g/cAQnsjoa74.4 - 36.0 gm/dLRemisol HemeMCV (RBC) [Entitic vol]85.3 nRGwrifm91.0 - 100.0 fLRemisol HemeMonocytes (Bld) [#/Vol]1.2 E9/LHigh0.2 - 1.0 E9/LRemisol HemeMonocytes/100 WBC (Bld)7.5 %Normal 4.0 - 14.0 %Remisol HemeNeutrophils (Bld) [#/Vol]12.6 E9/LHigh2.0 - 7.5 E9/L Remisol HemeNeutrophils/100 WBC (Bld)77.5 %High36.0 - 75.0 %Remisol HemePlatelet 260.0 E9/BUwutye046.0 - 500.0 E9/LRemisol HemePlatelet mean volume (Bld) [Entitic vol]8.1 fLNormal6.4 - 10.8 fLRemisol HemeRBC (Bld) [#/Vol]4.7 E12/L Normal4.3 - 5.9 E12/LRemisol HemeWBC corrected for nucl RBC Auto (Bld) [#/Vol] 16.2 E9/LHigh4.0 - 11.0 E9/LRemisol HemeHep Func Panelon [id number] [Mass/Vol]4.7 g/dLNormal3.3-5.0[facility] Agnes HospitalComment on above: Performed By: #### [id number] #### [facility] [address], [place] [address]Phmawjx/Globulin (S) [Mass conc ratio]1.0Mzpxlh0.1-2.2Fisher St. Agnes HospitalComment on above:Performed By: #### [id number] #### [facility] [address], [place] [address]HUF [Catalytic activity/Vol]73 Int._Unit/MNvovzp01-05LlpfitMckitrick HospitalComment on above:Performed By: #### [id number] #### [facility] [address] [place] [address]BHK No additional P-5'-P [Catalytic activity/Vol]46 Int._Unit/L Normal6-46[facility] HospitalComment on above:Performed By: #### [id number] #### [facility] [address] [place] [address]IZF [Catalytic activity/Vol]24 Int._Unit/LNormal5-43[facility] HospitalComment on above:Performed By: #### [id number] #### [facility] [address] [place] [address]Swpjwbsck [Mass/Vol]0.7 mg/dLNormal0.0-1.1FMercy Health Kings Mills HospitalComment on above:Performed By: #### [id number] #### [facility] [address] [place] [address]Ribtqlsay.direct [Mass/Vol]0.1 mg/dLNormal0.0-0.4FMercy Health Kings Mills HospitalComment on above:Performed By: #### [id number] #### [facility] [address] [place] [address]Bdzrzcztz.indirect [Mass or moles/Vol]0.6 mg/dLNormal0.1-0.9 [facility]rick HospitalComment on above:Performed By: #### [id number] #### [facility] [address] [place] [address]Dscqvvxi (S) [Mass/Vol]2.8 g/dLNormal1.4-4.0Mckitrick HospitalComment on above:Performed By: #### [id number] #### [facility] [address] [place] [address] 93[address]Funlwuc [Mass/Vol]7.5 g/dLNormal6.0-7.8M[facility]itrick HospitalComment on above:Performed By: #### [id number] #### [facility] [address], [place] [address]Nlrmqz Levelon 28-75-6534Djwpox [Catalytic activity/Vol]10 U/L Twm39-83PmqbshMckitrick HospitalComment on above:Performed By: #### [id number] #### [facility] [address], [place] [address]Lpqxejjsloc 12-72-9093Oyoiukfyt [Mass/Vol]2.2 mg/dLNormal 1.3-2.4Fisher St. Agnes HospitalComment on above:Performed By: #### [id number] #### [facility] [address], [place] [address]oUMPxk 78-91-3218vMCY502 mL/min/1.73 v5Yktkps>=59Mckitrick HospitalComment on above:Order Comment: Order added by Discern Expert. Performed By: #### [id number] #### [facility] [address], [place] [address]Veshpkz aminotransferase [Enzymatic activity/volume] in Serum or PlasmaOrdered By: Femi Benitez on 79-73-0569VGR [Catalytic activity/Vol]25 U/L 7-52TrihealthAlbumin [Mass/volume] in Serum or Plasma by Bromocresol green (BCG) dye binding methoOrdered By: Femi Benitez on 03-18-2024 Albumin BCG dye [Mass/Vol]5.3 g/dL3.5-5.7FPaulding County Hospital Alkaline phosphatase [Enzymatic activity/volume] in Serum or PlasmaOrdered By: Femi Benitez on 93-30-8023BAK [Catalytic activity/Vol]82 U/F94-847UkgeersogTrihealthAspartate aminotransferase [Enzymatic activity/volume] in Serum or PlasmaOrdered By: Femi Benitez on 56-76-4052OHZ [Catalytic activity/Vol] 23 U/Q17-14KbpdbfhdxTrihealthBasophils Auto (Bld) [#/Vol]Ordered By: Femi Benitez on 50-81-8729Qnquxpgfl (Bld) [#/Vol]0.1 10*3/uL0.0-0.2FPaulding County HospitalBasophils/100 WBC Auto (Bld)Ordered By: Femi Benitez on 25-30-4238Fznrkzgwt/100 WBC (Bld)0.4 %.[facility] Bilirubin.total [Mass/volume] in Serum or PlasmaOrdered By: Femi Benitez on 73-53-2453Ctekhdjbc [Mass/Vol]0.9 mg/dL0.3-1.0[facility] Calcium [Mass/volume] in Serum or PlasmaOrdered By: Femi Benitez on 03-18-2024 Calcium [Mass/Vol]10.4 mg/dL8.6-10.3FPaulding County HospitalCarbon dioxide, total [Moles/volume] in Serum or PlasmaOrdered By: Femi Benitez on 97-62-4728QH8 [Moles/Vol]18.4 mmol/L21.0-31.0[facility] Chloride [Moles/volume] in Serum or PlasmaOrdered By: Femi Benitez on 03-18-2024 Chloride [Moles/Vol]94 mmol/P76-064XbwvmyxndTrihealth Choriogonadotropin.beta subunit [Units/volume] in Serum or PlasmaOrdered By: Femi Benitez on 49-10-7135ZUM.beta subunit QnNegativeTrihealthCreatinine [Mass/volume] in Serum or PlasmaOrdered By: Femi Benitez on 12-14-7664Shzpbdmakc [Mass/Vol]0.80 mg/dL0.60-1.20TrihealthEosinophils Auto (Bld) [#/Vol]Ordered By: Femi Benitez on 03-18-2024 Eosinophils (Bld) [#/Vol]0.4 10*3/uL0.0-0.45[facility] Eosinophils/100 WBC Auto (Bld)Ordered By: Femi Benitez on 03-18-2024 Eosinophils/100 WBC (Bld)2.3 %.TrihealthErythrocyte distribution width Auto (RBC) [Ratio]Ordered By: Femi Benitez on 03-18-2024 Erythrocyte distribution width (RBC) [Ratio]14.3 %11.9-15.3FPaulding County HospitalGlobulin Calc (S) [Mass/Vol]Ordered By: Femi Benitez on 03-18-2024 Globulin (S) [Mass/Vol]2.8 g/dLTrihealthGlucose [Mass/volume] in Serum or PlasmaOrdered By: Femi Benitez on 48-40-1691Dgspnli [Mass/Vol]95 mg/tB41-233TojukuigcTrihealthComment on above:ADA recommended reference rangeRandom Glucose Reference Range is dependent on time and content of last meal. Glucose of more than 200 mg/dL in a nonstressed, ambulatory subject supports the diagnosisof Diabetes Mellitus.Hematocrit Auto (Bld) [Volume fraction]Ordered By: Femi Benitez on 38-72-0858Qclpyzlcsn (Bld) [Volume fraction]48.2 %34.0-46.4FPaulding County HospitalHemoglobin [Mass/volume] in BloodOrdered By: Femi Benitez on 47-23-2789Wbmgdxilrx (Bld) [Mass/Vol]16.3 g/dL11.8-15.4FPaulding County HospitalLeukocytes [#/volume] corrected for nucleated erythrocytes in Blood by Automated coun Ordered By: Feim Benitez on 71-59-3100AWD corrected for nucl RBC Auto (Bld) [#/Vol]18.5 10*3/uL3.8-11.6FPaulding County HospitalLymphocytes Auto (Bld) [#/Vol]Ordered By: Femi Benitez on 47-60-1833Ehlqbfjgflw (Bld) [#/Vol]3.9 10*3/uL1.00-4.8TrihealthLymphocytes/100 WBC Auto (Bld) Ordered By: Femi Benitez on 58-62-5769Zpnmqdfhmkb/100 WBC (Bld)20.9 %.TrihealthMCH Auto (RBC) [Entitic mass]Ordered By: Femi Benitez on 69-17-2404ZKR (RBC) [Entitic mass]28.2 pg24.7-34.3FPaulding County HospitalMCHC Auto (RBC) [Mass/Vol]Ordered By: Femi Benitez on 12-74-2152CRBO (RBC) [Mass/Vol]33.9 g/dL32.0-35.0[facility] Medical CenterMCV Auto (RBC) [Entitic vol]Ordered By: Femi Benitez on 85-62-2247DGW (RBC) [Entitic vol]83.2 fL 80-100TrihealthMonocyte distribution width [Entitic volume] in Blood by AutomatedOrdered By: eFmi Benitez on 71-48-6040Mgsfqrgg distribution width Auto (Bld) [Entitic vol]16.34 %0.00-20.00TrihealthMonocytes Auto (Bld) [#/Vol]Ordered By: Femi Benitez on 03-18-2024 Monocytes (Bld) [#/Vol]1.4 10*3/uL0.0-0.8[facility] Monocytes/100 WBC Auto (Bld)Ordered By: Femi Benitez on 48-56-4388Zkkegrdop/100 WBC (Bld)7.6 %.TrihealthNeutrophils Auto (Bld) [#/Vol] Ordered By: Femi Benitez on 42-90-9700Qchloxtmuno (Bld) [#/Vol]12.7 10*3/uL1.8-7.7 TrihealthNeutrophils/100 WBC Auto (Bld)Ordered By: Femi Benitez on 04-61-5438Xsglmjntrle/100 WBC (Bld)68.8 %.TrihealthNo Panel InformationOrdered By: Femi Benitez on 95-39-6253Ousxumbza GFR (CKD-EPI)> 60.0 mL/MinTrihealthPharmacy Creatinine Clearance (Jjlq759.98TrihealthNucleated erythrocytes [Presence] in Blood by Automated countOrdered By: Femi Benitez on 03-18-2024 Nucleated RBC Auto Ql (Bld)0.1 /100{WBC}0-0.5FPaulding County Hospital Platelet mean volume Auto (Bld) [Entitic vol]Ordered By: Femi Benitez on 93-37-3112Bgcqjktm mean volume (Bld) [Entitic vol]8.5 fL6.3-10.7FPaulding County HospitalPlatelets Auto (Bld) [#/Vol]Ordered By: Femi Benitez on 86-94-8933Ixxxrazml (Bld) [#/Vol]358 10*3/kA167-177TltgroealTrihealthPotassium [Moles/volume] in Serum or PlasmaOrdered By: Femi Benietz on 23-23-7812Qunpvuwcy [Moles/Vol]See comment3.5-5.1FPaulding County HospitalComment on above:Specimen hemolyzed, redraw requestedResults calledat 2349 on 03/18/24Protein [Mass/volume] in Serum or PlasmaOrdered By: Femi Benitez on 69-97-6789Lqqddrk [Mass/Vol]8.1 g/dL6.4-8.9TrihealthRBC Auto (Bld) [#/Vol]Ordered By: Femi Benitez on 87-86-6789YID (Bld) [#/Vol]5.79 10*6/uL3.60-5.00[facility]aritan Hospitalerum or plasma albumin/globulin mass ratioOrdered By: Femi Benitez on 18-63-8818Setdtaj/Globulin [Mass ratio]1.9 {ratio}[facility]aritan Hospitalerum or plasma anion gap determinationOrdered By: Femi Benitez on 07-87-6112Gtikd gap [Moles/Vol]TNP TrihealthComment on above:Test not performedSodium [Moles/volume] in Serum or PlasmaOrdered By: Femi Benitez on 20-53-4506Fishow [Moles/Vol]134 mmol/O112-165AwlznkfdeTrihealthUrea nitrogen [Mass/volume] in Serum or PlasmaOrdered By: Feim Benitez on 80-86-5570Xfzq nitrogen [Mass/Vol]27 mg/dL7-25TrihealthWBC Auto (Bld) [#/Vol]Ordered By: Femi Benitez on 22-62-2045LNS (Bld) [#/Vol]18.5 10*3/uL3.8-11.6 TrihealthCB w/ Auto Diffon 84-29-0893Nuwpgjsip/100 WBC (Bld)0.4 %Normal0.0-2.0Mckitrick HospitalComment on above:Performed By: #### 2954260, 28973334, 3099905, 1925980 ####[address] [address]Eoqpcuwiy/Leukocytes Auto (Bld) [Pure # fraction]0.1 E9/LNormal0.0-0.2FMercy Health Kings Mills HospitalComment on above: Performed By: #### 1148780, 92175862, 1775988, 6188316 ####[address] [address]Dhiquveclqk (Bld) [#/Vol]0.0 E9/LNormal0.0-0.5FMercy Health Kings Mills HospitalComment on above:Performed By: #### 0062894, 18837111, 7550527, 4980404 ####[address] [address]Oqhlgugublz/100 WBC (Bld)0.3 %Normal 0.0-8.0Mckitrick HospitalComment on above:Performed By: #### 8811888, 21195128, 3089767, 4023936 ####[address] [address]Lhmoqlvmfcn distribution width (RBC) [Ratio]14.1 % Jedggd07.9-14.2FMercy Health Kings Mills HospitalComment on above:Performed By: #### 8517527, 30996271, 2092098, 5990762 ####[address] [address]Vigohxulqn (Bld) [Volume fraction] 44.0 %Fjmrpz72.0-46.0M[facility]itrick HospitalComment on above:Performed By: #### 0095025, 36910538, 0703383, 1881640 ####[address] [address]Lsujthqyuo (Bld) [Mass/Vol]14.4 g/dL Igfmzr10.0-16.0Mckitrick HospitalComment on above:Performed By: #### 0297377, 40076463, 5029672, 9075807 ####[address] [address]Lrshqpmzbpt (Bld) [#/Vol]2.2 E9/L Normal1.0-4.0M[facility]rick HospitalComment on above:Performed By: #### 7950487, 58248461, 6542128, 2844286 ####[address] [address]Bpajzceyvpi/100 WBC (Bld)15.8 %Normal 14.0-50.0M[facility]rick HospitalComment on above:Performed By: #### 6650763, 43493381, 3536606, 5207002 ####[address] [address]TZY (RBC) [Entitic mass]27.8 mdJkegco10.0-34.0 [facility] HospitalComment on above:Performed By: #### 2577982, 17049267, 6456673, 0737977 ####[address] [address]BLLZ (RBC) [Mass/Vol]32.6 g/lTNypseq98.4-36.0[facility]rick HospitalComment on above:Performed By: #### 2582595, 06987059, 8320880, 1015355 ####[address] [address]MBF (RBC) [Entitic vol]85.2 gXLhspio62.0-100.0[facility]rick HospitalComment on above:Performed By: #### 0577915, 86842956, 6887054, 5041561 ####[address] [address]Tmxfxcele (Bld) [#/Vol]1.1 E9/LHigh0.2-1.0[facility] Comment on above:Performed By: #### 6284222, 63500781, 7092073, 3106352 ####[address] [address] Neutrophils (Bld) [#/Vol]10.6 E9/LHigh2.0-7.5FMercy Health Kings Mills HospitalComment on above:Performed By: #### 7788988, 10508941, 7735141, 3354597 ####[address] [address]Hixgbmofjzn/100 WBC (Bld)75.9 %High36.0-75.0M[facility]itrick HospitalComment on above:Performed By: #### 5364999, 15297855, 1066008, 0459583 ####[address] [address]Vuhcgrpk mean volume (Bld) [Entitic vol]8.4 fLNormal6.4-10.8M[facility]rick HospitalComment on above:Performed By: #### 8741171, 02440606, 6584253, 6687899 ####[address] [address]Awsfdpifb (Bld) [#/Vol]276.0 E9/L Vwenep056.0-500.0M[facility]rick HospitalComment on above:Performed By: #### 4399602, 89189950, 3969003, 9216069 ####[address] [address]RZR (Bld) [#/Vol]5.2 E12/LNormal 4.3-5.9M[facility] HospitalComment on above:Performed By: #### 2281742, 21245893, 0248710, 7684793 ####[address] [address]VLV corrected for nucl RBC Auto (Bld) [#/Vol]14.0 E9/LHigh4.0-11.0[facility] HospitalComment on above:Performed By: #### 1438330, 68799635, 4936672, 0400119 ####[address] [address]OQDVQAJTDIoviebm By: SYSTEM SYSTEM on 67-72-2385Dhnzqol [Mass/Vol]5.0 g/dLNormal3.3 - 5.0 gm/dLRemisol Chem Albumin/Globulin [Mass ratio]1.8 {ratio}Normal1.1 - 2.2Remisol ChemALP [Catalytic activity/Vol]69 [iU]/bGgxrnh32 - 98 Int._Unit/LRemisol ChemALT No additional P-5'-P [Catalytic activity/Vol]31 [iU]/dNormal6 - 46 Int._Unit/L Remisol ChemAnion gap [Moles/Vol]22 mmol/LHigh6 - 16 mEq/LRemisol ChemAST [Catalytic activity/Vol]19 [iU]/dNormal5 - 43 Int._Unit/LRemisol ChemBilirubin [Mass/Vol]0.8 mg/dLNormal0.0 - 1.1 mg/dLRemisol ChemCalcium [Mass/Vol]10.4 mg/dL Normal8.9 - 11.1 mg/dLRemisol ChemCO2 [Moles/Vol]19 mmol/LLow21 - 31 mmol/L Remisol ChemCreatinine [Mass/Vol]0.8 mg/dLNormal0.5 - 1.3 mg/dLRemisol ChemeGFR 108 mL/min/1.73 p7Qisztd>=59mL/min/1.73 a0Nkdfriw ChemGlobulin (S) [Mass/Vol]2.8 g/dLNormal1.4 - 4.0 gm/dLRemisol ChemGlucose [Mass/Vol]86 mg/xMBbzsoe52 - 199 mg/dLRemisol ChemMagnesium [Mass/Vol]2.2 mg/dLNormal1.3 - 2.4 mg/dLRemisol Chem Protein [Mass/Vol]7.8 g/dLNormal6.0 - 7.8 gm/dLRemisol ChemUrea nitrogen [Mass/Vol]24 mg/dLHigh5 - 21 mg/dLRemisol ChemUrea nitrogen/Creatinine [Mass ratio]30 mg/yxLhpw04 - 20Remisol ChemCHEMISTRYOrdered By: Manish Sales on 90-72-3487Vtgjbddh [Moles/Vol]99 mmol/SAmx574 - 111 mmol/LRemisol ChemPotassium [Moles/Vol]3.3 mmol/LLow3.5 - 5.3 mmol/LRemisol ChemSodium [Moles/Vol]137 mmol/L Tpeeli557 - 145 mmol/LRemisol ChemCMPon 29-28-7559Perntmsq [Moles/Vol]99 mmol/L Aau903-021FeeqmhMckitrick HospitalComment on above:Performed By: #### 5639868, 16951879, 9226035, 7620694 ####[address] [address]Hsoxafeue [Moles/Vol]3.3 mmol/LLow 3.5-5.3FMercy Health Kings Mills HospitalComment on above:Performed By: #### 6164667, 30964111, 6599938, 3372619 ####[address] [address]Arjsxy [Moles/Vol]137 mmol/ARvwbqn423-709FwgesrMckitrick HospitalComment on above:Performed By: #### 2226488, 24144868, 9024394, 0163394 ####[address] [address]Yhivy gap [Moles/Vol]22 mmol/LHigh6-16M[facility]itrick HospitalComment on above:Performed By: #### 7361978, 11885272, 6007381, 9823436 ####[address] [address]QR9 [Moles/Vol]19 mmol/DJno50-36SazfxeMckitrick HospitalComment on above: Performed By: #### 3874151, 94756677, 2458132, 7009522 ####[address] [address]Ejbgldg [Mass/Vol]5.0 g/dL Normal3.3-5.0M[facility]rick HospitalComment on above:Performed By: #### 1377679, 45974982, 7096340, 2502898 ####[address] [address]Trsmgjn/Globulin (S) [Mass conc ratio]1.9Irqdwc1.1-2.2FMercy Health Kings Mills HospitalComment on above:Performed By: #### 8943996, 77461689, 4802254, 8982457 ####[address] [address]FTT [Catalytic activity/Vol]69 Int._Unit/CZdgjak21-04InkgvrMckitrick HospitalComment on above:Performed By: #### 3850301, 54017537, 8803919, 5938993 ####[address] [address]SHC No additional P-5'-P [Catalytic activity/Vol]31 Int._Unit/LNormal6-46M[facility] HospitalComment on above:Performed By: #### 5879814, 50372813, 7826125, 0497026 ####[address] [address]QJM [Catalytic activity/Vol]19 Int._Unit/LNormal5-43[facility] HospitalComment on above:Performed By: #### 2499278, 21216167, 8189072, 2275018 ####[address] [address]Ziekdqahe [Mass/Vol] 0.8 mg/dLNormal0.0-1.1FMercy Health Kings Mills HospitalComment on above:Performed By: #### 1354853, 32016384, 0073991, 5746946 ####[address] [address]Pheptok [Mass/Vol]10.4 mg/dLNormal 8.9-11.1FMercy Health Kings Mills HospitalComment on above:Performed By: #### 9284715, 65136525, 1217523, 4957746 ####[address] [address]Ltlcwqwiah [Mass/Vol]0.8 mg/dLNormal0.5-1.3FMercy Health Kings Mills HospitalComment on above:Performed By: #### 0896567, 07393276, 9487776, 5650893 ####[facility] [address] [place] [address]Tkzjzogh (S) [Mass/Vol]2.8 g/dLNormal1.4-4.0M[facility]rick HospitalComment on above:Performed By: #### 8495938, 18818891, 5410541, 3452310 ####[facility] [address] [place] [address]Uwdzrpp [Mass/Vol]86 mg/yUJahyhx03-252GdhvfmMckitrick HospitalComment on above:Performed By: #### 8965468, 45660230, 8744937, 6898047 ####[address] [address]Yvjvplv [Mass/Vol]7.8 g/dLNormal6.0-7.8M[facility] HospitalComment on above:Performed By: #### 4516241, 60962158, 5112203, 4705017 ####[address] [address]Hpfh nitrogen [Mass/Vol]24 mg/dLHigh 5-21M[facility]rick HospitalComment on above:Performed By: #### 8272308, 10725922, 5677992, 9836304 ####[address] [address]Lxne nitrogen/Creatinine [Mass ratio]30 No Units Lgsp72-17RiiedcMckitrick HospitalComment on above:Performed By: #### 6372366, 63513230, 3033938, 9242440 ####[address] [address]TC Chest w/ Contraston 08-66-8506KL Chest w/ ContrastExam Date/Time: 03/15/2024 11:36 EDT [...] Isovue 300 Contrast amount in ml's: 100NormOhioHealth Doctors HospitalConsent for Treatmenton 96-77-7331Bgapoub for Treatment [id number]#1.00TIFFNoJ.W. Ruby Memorial HospitalDischarge Instructionson 35-85-9926Nmxuknryo Instructions [id number]#1.00TIFFNormalChristophe [facility] Clinical Summaryon 98-10-4645PI Clinical Summary [place] [id number] ED Clinical Summary Person Information Name: PILI PARIKH/New_Anthony Age: 19 Years : 2005 Sex: Female Language: Rwandan PCP: MODESTA ARCHIBALD Marital Status: Single Visit [...] 03/15/2024 13:49:40 03/15/2024 13:49:40 03/15/2024 13:49:40 ADDRESS: [address] [place] [id number] [facility] DOC NOTES: MEDICAL INFORMATION: Prescriptions Given: Medications to Continue with No Changes Other Medications acetaminophen-hydrocodone ([place] 325 mg-5 mg oral tablet) 1 Tablets [...] any symptoms. DIAGNOSIS: 1:Nausea and vomiting; 2:PneumomediastinumNormalFisher Jacksonville Medical CenterED Note-Physicianon 15-07-9225CS Note-PhysicianBasic Information Time Seen: Ebony Birmingham, August [...] and Complexity of Problems Differential Diagnosis: [] [facility] Data External documents reviewed: [] [...] instructed. Return to (more content not included)...Normal [facility]rick HospitalComment on above:Result Comment: Electronically Signed By: August Bermudez M.D.\.br\Date and Time Signed: 03/15/2416:57 EDTED Patient Education Noteon 14-93-5048ZY Patient Education NoteGastroenterology Nausea and Vomiting, Adult [...] added (diluted fruit juice). ? Eat bland, mhsg-rq-dqvcib foods in small amounts as you are able. These foods include bananas, applesauce, rice, lean meats, toast, and crackers. ? Avoid fluids that contain a lot of sugar or caffeine, such as energy drinks, sports drinks, and soda. ? Avoid alcohol. ? Avoid spicy or fatty foods. General instructions ? Take rzju-mue-wkrpgyz and prescription medicines only as told by your health care provider. ? Drink enough fluid to keep your urine pale yellow. ? Wash your hands often using soap and water for at least 20 seconds. If soap and water are not available, use hand winderman. ? Make sure that everyone in your [...] and drinking to prevent dehydration. ? Take pont-tze-uqanqxk and prescription medicines only as told by [...] provider. Document Revised: 05/21/2022 Document Reviewed: 05/21/2022 Doximity Patient Education ? 2022 Prolify. Radiology Pneumomediastinum Pneumomediastinum is the presence of [...] cocaine, and marijuana. Spontane (more content not included)...[facility] Patient Summaryon 67-44-6010NQ Patient Summary [place] [id number] Patient Discharge Instructions Person Information Name: PILI PARIKH Age: 19 Years Arrival Date: 03/15/2024 10:32:10 Discharge Diagnosis: 1:Nausea and vomiting; 2:Pneumomediastinum Primary Care Physician: MODESTA ARCHIBALD Provider Information Primary Provider: August Bermudez M.D. Advanced Bias Machine Operator:None The exam and treatment you received in the Emergency Department were for an urgent problem and are not intended as complete care. It is important that you follow up with a doctor, nurse practitioner,or physician?s wet process assistant head miller for ongoing care. If your symptoms become [...] opioids can be used to help relieve xlxmbxvo-qu-gedjpq pain and are often prescribed following a [...] be strugg (more content not included)...[facility] CenterHEMATOLOGYOrdered By: SYSTEM SYSTEM on 03-15-2024 Basophils/100 WBC (Bld)0.4 %Normal0.0 - 2.0 %Remisol HemeBasophils/Leukocytes Auto (Bld) [Pure # fraction]0.1 E9/LNormal0.0 - 0.2 E9/LRemisol HemeEosinophils (Bld) [#/Vol]0.0 E9/LNormal0.0 - 0.5 E9/LRemisol HemeEosinophils/100 WBC (Bld) 0.3 %Normal0.0 - 8.0 %Remisol HemeErythrocyte distribution width (RBC) [Ratio] 14.1 %Hklhcr58.9 - 14.2 %Remisol HemeHematocrit (Bld) [Volume fraction]44.0 % Mqgdtc09.0 - 46.0 %Remisol HemeHemoglobin (Bld) [Mass/Vol]14.4 g/rSGxuiyf72.0 - 16.0 gm/dLRemisol HemeLymphocytes (Bld) [#/Vol]2.2 E9/LNormal1.0 - 4.0 E9/L Remisol HemeLymphocytes/100 WBC (Bld)15.8 %Rcawry08.0 - 50.0 %Remisol HemeMCH (RBC) [Entitic mass]27.8 lqYgrbvv03.0 - 34.0 pgRemisol HemeMCHC (RBC) [Mass/Vol] 32.6 g/uEUnkeyq59.4 - 36.0 gm/dLRemisol HemeMCV (RBC) [Entitic vol]85.2 [...] (Bld) [#/Vol]14.0 E9/LHigh4.0 - 11.0 E9/LRemisol HemeMagnesiumon 66-55-5263Vssktmuvw [Mass/Vol]2.2 mg/dLNormal 1.3-2.4FMercy Health Kings Mills HospitalComment on above:Performed By: #### 9100062, 85828487, 9917063, 5474192 ####[facility] [address] [place], [place] [address]pXWZkt 02-21-6871vCFQ947 mL/min/1.73 h0Ybychx>=59 [facility] HospitalComment on above:Order Comment: Order added by Discern Expert.Performed By: #### 9867412, 29321608, 8455611, 0205604 ####[facility] [address] [place], [place] [address]YB Abdomen/Pelvis w/ Contraston 74-92-5006SC Abdomen/Pelvis w/ ContrastExam Date/Time: 03/13/2024 19:18 EDT [...] Isovue 300 Contrast amount in ml's: 130NormalFisher St. Agnes HospitalCT Chest w/ Contraston 17-55-7222YF Chest w/ ContrastExam Date/Time: 03/13/2024 19:18 EDT [...] Isovue 300 Contrast amount in ml's: 130NormalFisher St. Agnes HospitalCT Head or Brain w/o Contraston 00-16-9666FJ Head or Brain w/o ContrastExam Date/Time: 03/13/2024 [...] Erick Ferrer M.D. Transcribed by: KIRA Technologist: [facility] HospitalCT Spine Cervical w/o Contraston 96-46-9612CY Spine Cervical w/o ContrastExam Date/Time: 03/13/2024 19:18 [...] Erick Ferrer M.D. Transcribed by: KIRA Technologist: [facility] HospitalEMS Documentationon 73-70-1392PCV DocumentationPlease click on link to see report [facility] CenterComment on above:Result Comment: Missing Attachment - total size limit for all attachments exceeded [email or web address] Can be viewed in source systemXR Chest 2 Viewson 56-47-4155WZ Chest 2 ViewsExam Date/Time: 03/13/2024 21:35 EDT [...] Kar in mGy = na DAP = naNormalMckitrick HospitalABO/Rhon 61-73-1940DES/RhPositive Invalid Interpretation [facility] CompanyComment on above:Performed By: #### 1804607, 63532677, 98179666, 18363529 ####[facility] [address] [place], [place] [address]IUN/Rh History Checkon 03-13-2024 ABO/Rh History CheckPatient discharged priorUniversity Hospitals TriPoint Medical Center Comment on above:Performed By: #### 8857900, 25969875, 28033937, 04437024 ####[facility] [address] [place], [place] [address]VOLD on 93-00-3674FQNM Gel InterpNegativeUniversity Hospitals TriPoint Medical CenterComment on above:Performed By: #### 3376400, 69401177, 90647338, 89914317 ####[facility] [address] [place], [place] [address]T hCG Qualon 58-61-0586Boie HCG ( test) QlNegativeUniversity Hospitals TriPoint Medical Center Comment on above:Performed By: #### [id number], 6398430, 1744820, 6957400, 6957076, [id number], 19674624, 5827580, 6498878 ####[facility] [address] [place], [place] [address]JYBZV BANKOrdered By: Scarlet Lindquist on [id number]/Rh InterpPositiveInvalid Interpretation CodeMEMORIAL H[facility] BB Subsection ABSC Gel InterpNegative (03/13/24 6:53 PM)NormalMEMORIAL HOSPITAL OF [facility] BB SubsectionBMPon 28-82-3386Ujaog gap [Moles/Vol]16 mmol/LNormal6-16M[facility]itrick HospitalComment on above:Performed By: #### [id number], [id number], 1272349, 9078418, 9813598, 30098115, 45093315, 8186413, 5336560 ####[facility] [address], [place] [address]Maezxra [Mass/Vol]10.8 mg/dLNormal8.9-11.1FMercy Health Kings [facility] Hospital Comment on above:Performed By: #### [id number], 5535378, 7782853, 5738418, 9233365, 24809491, 23087822, 0648826, 1903774 ####[facility] [address] [place], [place] [address]Hxxsctvb [Moles/Vol]105 mmol/LNormal 101-111M[facility]rick HospitalComment on above:Performed By: #### [id number], 9511842, 6993514, 1537770, 4110776, 47573044, 58789539, 2024451, 7205551 ####[facility] [address] [place], [place] [address]FX5 [Moles/Vol]25 mmol/EYitftf55-80MabrczMckitrick HospitalComment on above: Performed By: #### [id number], 1128670, 2700322, 0153862, 1300772, 37852377, 86225629, 2462000, 6048322 ####[facility] [address] [place], [place] [address]Piyyfuilfb [Mass/Vol]0.9 mg/dLNormal0.5-1.3FMercy Health Kings Mills HospitalComment on above:Performed By: #### [id number], 9251871, 6066533, 8694105, 2898755, 87663577, 63623281, 8422727, 3663544 ####[facility] [address] [place], [place] [address]Fpdbstq [Mass/Vol]100 mg/sHVyvcxj77-670WxgbxeMckitrick HospitalComment on above:Performed By: #### [id number], 1182023, 9831207, 2553289, 0508786, 07051356, 79860530, 9780472, 8878607 ####[facility] [address] [place] [address]Vodfwsmsb [Moles/Vol]3.3 mmol/LLow3.5-5.3Fisher St. Agnes HospitalComment on above:Performed By: #### 45918932, 7135814, 3208110, 8357015, 9678022, 71411508, 11687180, 8026640, 0827933 ####Saeed [address] [address]Fngduk [Moles/Vol]143 mmol/LNormal 135-145Mckitrick HospitalComment on above:Performed By: #### 67121546, 6407306, 4718594, 9530310, 1412893, 19839936, 67449835, 5436542, 5644308 ####[facility] [address] [place] [address]Mruy nitrogen [Mass/Vol]24 mg/dLHigh5-21Mckitrick HospitalComment on above: Performed By: #### 57702060, 6197789, 8242390, 9602534, 9193552, 54760775, 01977152, 2658621, 9378796 ####[facility] [address] [place] [address] 165[address]Igxj nitrogen/Creatinine [Mass ratio]27 No Units Qyxq60-61JfkdqoMckitrick HospitalComment on above:Performed By: #### 16277075, 0869519, 7445907, 8748884, 9438035, 25050783, 26977831, 2575021, 0546903 ####[address] [address] ID#on [id number]#[id number] Interpretation CodeMckitrick HospitalComment on above:Performed By: #### 5520251, 61947782, 12952157, 60480953 ####[address] [address]NJE w/ Auto Diffon 67-03-4477Vbxxxalhs/100 WBC (Bld)0.4 % Normal0.0-2.0Mckitrick HospitalComment on above:Performed By: #### 84003706, 3994995, 1300151, 6240795, 2662034, 87106309, 50481620, 9700505, 7795442 ####[address] [address]Xniocmrbv/Leukocytes Auto (Bld) [Pure # fraction]0.1 E9/LNormal0.0-0.2 [facility] HospitalComment on above:Performed By: #### 51383564, 5689366, 3980201, 1593598, 8525378, 71940971, 03685511, 7593594, 7863912 ####[address] [address] Eosinophils (Bld) [#/Vol]0.0 E9/LNormal0.0-0.5FMercy Health Kings Mills HospitalComment on above:Performed By: #### 82513115, 7015317, 8307592, 9761494, 6115844, 18060412, 56557205, 8362280, 3684524 ####[address] [address]Djjxvajdjbm/100 WBC (Bld)0.1 %Normal 0.0-8.0[facility]rick HospitalComment on above:Performed By: #### 87208223, 0655489, 3551552, 0433845, 7873883, 95169006, 71172997, 0565792, 7701672 ####Saeed [address] [address] Erythrocyte distribution width (RBC) [Ratio]14.4 %High10.9-14.2FMercy Health Kings Mills HospitalComment on above:Performed By: #### 03234778, 7239072, 8703069, 9722560, 9461602, 35302461, 45351852, 2534190, 2531958 ####[address] [address]Elwapirvlk (Bld) [Volume fraction]42.5 %Ddinlu90.0-46.0[facility]ckitrick HospitalComment on above: Performed By: #### 32192865, 4681820, 8869140, 6131483, 9745008, 57124975, 59955735, 4716830, 9173450 ####[address] [address]Oubiimhyya (Bld) [Mass/Vol]14.0 g/hAZcxild11.0-16.0 [facility] HospitalComment on above:Performed By: #### 46476233, 5739533, 4699528, 4599504, 1201990, 59374020, 33479215, 9363256, 5453087 ####[address] [address] Lymphocytes (Bld) [#/Vol]2.3 E9/LNormal1.0-4.0[facility]rick HospitalComment on above:Performed By: #### 06992687, 7160942, 5573372, 0947509, 9537877, 07248245, 41770738, 5236903, 7349822 ####[address] [address]Wbursoeappv/100 WBC (Bld)11.8 %Low 14.0-50.0[facility]rick HospitalComment on above:Performed By: #### 71196193, 6907711, 4782191, 8155322, 1936432, 16846550, 71324591, 7123618, 8904973 ####Saeed [facility] [address] [place], [place] [address]LNC (RBC) [Entitic mass]27.6 fuBpjycx62.0-34.0[facility] Comment on above:Performed By: #### 27935633, 6101615, 8818881, 1431428, 6776277, 03929898, 42428782, 7230405, 1005137 ####Saeed [address] [address]DUDU (RBC) [Mass/Vol]32.9 g/dLNormal 31.4-36.0[facility] HospitalComment on above:Performed By: #### 21591839, 7825067, 6483760, 4308383, 2017224, 99376759, 96083244, 7999966, 4129346 ####Saeed [address] [address]RPY (RBC) [Entitic vol]83.8 iHHvigpf46.0-100.0[facility] Comment on above:Performed By: #### 49302998, 5000201, 4222637, 1470991, 8961633, 86546336, 78251533, 2900950, 3104477 ####Saeed [address] [address]Zkcxavtiv (Bld) [#/Vol]1.4 E9/LHigh 0.2-1.0[facility] HospitalComment on above:Performed By: #### 62173510, 7513928, 2113629, 0174255, 0002519, 21193934, 16795818, 9565536, 0736288 ####[address] [address] Neutrophils (Bld) [#/Vol]15.5 E9/LHigh2.0-7.5FMercy Health Kings Mills HospitalComment on above:Performed By: #### 06844244, 7008302, 8696196, 5621127, 5390392, 39859167, 50258288, 1876675, 5888749 ####[address] [place], [place] [address]Cgynavtnrdg/100 WBC (Bld)80.6 %High 36.0-75.0M[facility]rick HospitalComment on above:Performed By: #### 69405565, 4123946, 3160630, 8451237, 0072521, 15420823, 88692135, 7765248, 2748797 ####[address] [address]Pwqqfloi mean volume (Bld) [Entitic vol]8.4 fLNormal6.4-10.8[facility] HospitalComment on above:Performed By: #### 34921674, 2803186, 3737489, 9953756, 0031490, 90296747, 42098812, 4572880, 7492740 ####[address] [address]Huzhtwkct (Bld) [#/Vol]356.0 E9/CJhjeiz905.0-500.0M[facility]rick HospitalComment on above:Performed By: #### 22854763, 3678934, 6901748, 7465512, 4510442, 33578349, 96443512, 6777690, 3653107 ####[address] [address]ZGA (Bld) [#/Vol]5.1 E12/LNormal4.3-5.9M[facility]rick HospitalComment on above:Performed By: #### 85479067, 3572695, 0607120, 0997654, 8171461, 60648851, 26523674, 9864132, 1924790 ####[address] [address]QVQ corrected for nucl RBC Auto (Bld) [#/Vol]19.3 E9/LHigh4.0-11.0M[facility]itrick HospitalComment on above:Result Comment: Slide review performedPerformed By: #### 84373927, 6117317, 5169549, 9247635, 7542897, 37249512, 27393428, 3940929, 6316547 ####Saeed [facility] [address] [place], [place] [address]LIFHOCZULMbbdfjw By: SYSTEM SYSTEM on 43-27-2597Twbwdkj [Mass/Vol]5.4 g/dLHigh3.3 - 5.0 gm/dLRemisol Chem Albumin/Globulin [Mass ratio]1.8 {ratio}Normal1.1 - 2.2Remisol ChemALP [Catalytic activity/Vol]82 [iU]/uAsjnyf65 - 98 Int._Unit/LRemisol ChemALT No additional P-5'-P [Catalytic activity/Vol]44 [iU]/dNormal6 - 46 Int._Unit/L Remisol ChemAnion gap [Moles/Vol]16 mmol/LNormal6 - 16 mEq/LRemisol ChemAST [Catalytic activity/Vol]23 [iU]/dNormal5 - 43 Int._Unit/LRemisol ChemBilirubin [Mass/Vol]0.8 mg/dLNormal0.0 - 1.1 mg/dLRemisol ChemBilirubin.direct [Mass/Vol] 0.2 mg/dLNormal0.0 - 0.4 mg/dLRemisol ChemBilirubin.indirect [Mass or moles/Vol] 0.6 mg/dLNormal0.1 - 0.9 mg/dLRemisol ChemCalcium [Mass/Vol]10.8 mg/dLNormal8.9 - 11.1 mg/dLRemisol ChemChloride [Moles/Vol]105 mmol/JAefypd303 - 111 mmol/L Remisol ChemCO2 [Moles/Vol]25 mmol/SWeblwt11 - 31 mmol/LRemisol ChemCreatinine [Mass/Vol]0.9 mg/dLNormal0.5 - 1.3 mg/dLRemisol BiuwkXVO48 mL/min/1.73 h9Qnewfg >=59mL/min/1.73 x0Lcjknrk ChemEthanol Lvlmg/dLNormal<=11mg/dLRemisol Chem Globulin (S) [Mass/Vol]3.0 g/dLNormal1.4 - 4.0 gm/dLRemisol ChemGlucose [Mass/Vol]100 mg/iEZyjsyx48 - 199 mg/dLRemisol ChemLactic Acid Lvl1.7 mmol/L Normal0.5 - 2.2 mmol/LRemisol ChemLipase [Catalytic activity/Vol]14 U/NTlczuj12 - 58 unit/LRemisol ChemPotassium [Moles/Vol]3.3 mmol/LLow3.5 - 5.3 mmol/LRemisol ChemProtein [Mass/Vol]8.4 g/dLHigh6.0 - 7.8 gm/dLRemisol ChemSodium [Moles/Vol] 143 mmol/PDxivgm388 - 145 mmol/LRemisol ChemTroponin6.10 pg/mLLow10.10 - 27.10 [...] - 21 mg/dLRemisol ChemUrea nitrogen/Creatinine [Mass ratio]27 mg/kmQodt90 - 20Remisol ChemCOAGULATION Ordered By: Virginia Mccain on 16-57-4213fZDB Coag (PPP) [Time]32.8 uCxrrll10.1 - 36.5 second(s)[facility] Auto CoagComment on above:Interpretive Data: Parameter 15 days - 4 weeks 1 - 5 months 6 - 11 months 1 - 5 years 6 - 10 years 11 - 17 years PTT Mean: 35.4 (27.6-45.6) Mean: 33.5 (24.8-40.7) Mean: 32.4 (25.1-40.7) Mean: 31.6 (24.0-39.2) Mean: 31.6 (26.9-38.7) Mean: 31.0 (24.6-38.4) Pediatric Reference ranges were obtained from a study by Az Kirvin, et al. prepared from 1437 samples obtained at 7 different centers using the same coagulation reagent and instrumentation as [facility]. Currently there are no coagulation studies available worldwide for children to 14 days, andno normal ranges. Heparin therapeutic range (represented by Anti-Factor Xa activity of 0.2 - 0.4 U/mL) corresponds to PTT of 56.6 - 109.0 sec.INR Coag (PPP) [Relative time]1.11 {INR}Invalid Interpretation CodeMEMORIAL HOSPITAL OF [facility] Auto CoagComment on above:Interpretive Data: INR results are specifically intended to assess patients stabilized on long-term Anticoagulation therapy suggested INR s Less Intensive Anticoagulation 2.0 3.0 Conventional Range 3.0 4.5PT Coag (PPP) [Time]12.4 sNormal9.4 - 12.5 second(s) [facility] Auto CoagComment on above:Interpretive Data: 15 days [...] the same coagulation reagent and instrumentation as [facility]. Currently there are no coagulation studies available worldwide for children to 14 days, andno normal ranges.Consent for Treatmenton 42-39-2871Vjuyrfv for Treatment [id number]#1.00TIFKettering Health HamiltonDischarge Instructionson 49-30-5741Ggdjbdtcx Instructions [id number]#1.00TIFFostoria City Hospital Clinical Summaryon 25-14-5980LH Clinical Summary [address] [address] ED Clinical Summary Person Information Name: PILI PARIKH/Nathan Age: 19 Years : 2005 Sex: Female Language: Rwandan PCP: MODESTA ARCHIBALD Marital Status: Single Visit [...] 03/13/2024 22:27:59 03/13/2024 22:27:59 ADDRESS: [address] [facility] [id number] PHYS DOC NOTES: MEDICAL INFORMATION: Prescriptions Given: New Medications [id number], [address], [place] [id number], [phone] acetaminophen-hydrocodone ([place] 325 mg-5 mg oral tablet) 1 Tablets [...] EDUCATION INFORMATION: Instructions: Nausea and Vomiting, Adult, Lcsx-do-Bujt; Muscle Strain, Mkta-nv-Iyvi Follow up: With: Address: When: MODESTA ARCHIBALD [address] [place], [place] [phone] Business (1) In 3 days 03/16/2024 Comments: [...] (nausea and vomiting)[facility] CenterED Note-Physicianon 09-35-8345RM Note-PhysicianBasic Information Time Seen: Gasper Lang PA-C [...] EDT, STA (more content not included)...[facility] CenterComment on above:Result Comment: Electronically Signed By: Gasper Lang PA-C\.br\Date and Time Signed: 03/13/2418:45 EDT\.br\Electronically Co-Signed By: Isaak Francis DO\.br\Date and Time Co-Signed: 03/13/24 22:19 EDT\.br\Electronically Co-Signed By: Femi Roman DO\.br\Date and Time Co-Signed: 03/16/2407:37 EDTED Patient Education Noteon 91-81-1182EG Patient Education NoteGastroenterology Nausea and Vomiting, Adult [...] ? Low-calorie sports drinks. ? Eat bland, eyex-zt-bfurpu foods in small amounts as you are able, such as: ? Bananas. ? Applesauce. ? Rice. ? Low-fat (lean) meats. ? Bernard. ? Crackers. ? Avoid drinking fluids that have a lot of sugar or caffeine in them. This includes energy drinks, sports drinks, and soda. ? Avoid alcohol. ? Avoid spicy or fatty foods. General instructions ? Take slkz-yma-mqynfcd and prescription medicines only as told by your doctor. ? Drink enough fluid to keep your pee (urine) pale yellow. ? Wash your hands often with soap and water for at least 20 seconds. If you cannot use soap and water, use hand winderman. ? Make sure that everyone in your [...] doctor about eating and drinking. ? Take xepw-how-ohbizpj and prescription medicines only as told by your doctor. ? Contact your doctor if your symptoms get worse or you have new symptoms. ? Keep all follow-up visits. This information is not intended to replace advice given to you by your health care provider. Make sure you discuss any questions you have with your health care provider. Document Revised: 05/21/2022 Document Reviewed: 05/21/2022 [employer] Patient Education ? 2022 [employer]. Orthopedics Muscle Strain A muscle strain, or [...] ? Protecting your m (more content not included)...[facility] Patient Summaryon 52-28-0970SD Patient Summary [place] [id number] Patient Discharge Instructions Person Information Name: PILI PARIKH Age: 19 Years Arrival Date: 03/13/2024 17:33:02 Discharge Diagnosis: 1:Fall down stairs; Abnormal CT scan, chest; Back strain; N&V (nausea and vomiting) Primary Care Physician: MODESTA ARCHIBALD Provider Information Primary Provider: Femi Roman DO Advanced Bias Machine Operator:Gasper Lang PA-C The exam and treatment you received in the Emergency Department were for an urgent problem and are not intended as complete care. It is important that you follow up with a doctor, nurse practitioner,or physician?s wet process assistant head miller for ongoing care. If your symptoms become [...] With: Address: When: MODESTA ARCHIBALD [address], [place] [phone] Business (1) In 3 days 03/16/2024 Comments: [...] Patient Education Materials: Nausea and Vomiting, Adult, Fggy-hl-Uudt; Muscle Strain, Otxg-ll-Yyxv A MESSAGE TO ALL PATIENTS REGARDING OPIOIDS PRESCRIPTION OPIOIDS: WHAT YOU NEED TO KNOW Prescription opioids can be used to help relieve iwltttby-kd-smxdty pain and are often prescribed following a [...] your community drug take- back program or [employer]pharm[employer] mail-back program, or flush them juan (more content not included)...NormalSelect [facility] Traumaon 62-30-0585ZD Trauma [id number]#1.00TIFFNormalMckitrick HospitalEthanolon 75-60-3486Yypedmx Lvl<10Normal<=11[facility] Comment on above:Performed By: #### [id number] ####Christ[address] [facility] [address] [place], [place] [address]VMAAVLXRJMEpspjlm By: SYSTEM SYSTEM on 20-35-0413Txyeqrnsp/100 WBC (Bld)0.4 %Normal0.0 - 2.0 %Remisol Heme Basophils/Leukocytes Auto (Bld) [Pure # fraction]0.1 E9/LNormal0.0 - 0.2 E9/L Remisol HemeEosinophils (Bld) [#/Vol]0.0 E9/LNormal0.0 - 0.5 E9/LRemisol Heme Eosinophils/100 WBC (Bld)0.1 %Normal0.0 - 8.0 %Remisol HemeErythrocyte distribution width (RBC) [Ratio]14.4 %High10.9 - 14.2 %Remisol HemeHematocrit (Bld) [Volume fraction]42.5 %Znifgk80.0 - 46.0 %Remisol HemeHemoglobin (Bld) [Mass/Vol]14.0 g/lLVjusax36.0 - 16.0 gm/dLRemisol HemeLymphocytes (Bld) [#/Vol] 2.3 E9/LNormal1.0 - 4.0 E9/LRemisol HemeLymphocytes/100 WBC (Bld)11.8 %Low14.0 - 50.0 %Remisol HemeMCH (RBC) [Entitic mass]27.6 fgZzkasr70.0 - 34.0 pgRemisol HemeMCHC (RBC) [Mass/Vol]32.9 g/dCIqijqa38.4 - 36.0 gm/dLRemisol HemeMCV (RBC) [Entitic vol]83.8 pMDfaiuu41.0 - 100.0 fLRemisol HemeMonocytes (Bld) [#/Vol]1.4 E9/LHigh0.2 - 1.0 E9/LRemisol HemeMonocytes/100 WBC (Bld)7.1 %Normal4.0 - 14.0 % Remisol HemeNeutrophils (Bld) [#/Vol]15.5 E9/LHigh2.0 - 7.5 E9/LRemisol Heme Neutrophils/100 WBC (Bld)80.6 %High36.0 - 75.0 %Remisol HemePlatelet mean volume (Bld) [Entitic vol]8.4 fLNormal6.4 - 10.8 fLRemisol HemePlatelets (Bld) [#/Vol] 356.0 E9/BOngrty503.0 - 500.0 E9/LRemisol HemeRBC (Bld) [#/Vol]5.1 E12/LNormal 4.3 - 5.9 E12/LRemisol HemeWBC corrected for nucl RBC Auto (Bld) [#/Vol]19.3 E9/LHigh4.0 - 11.0 E9/LRemisol HemeComment on above:Result Comment: Slide review performedHep Func Panelon 96-82-9136Xjgofoa [Mass/Vol]5.4 g/dLHigh3.3-5.0[facility] HospitalComment on above:Performed By: #### 81050802, 6206325, 7021800, 0828361, 6483319, 75367759, 62126429, 3169237, 1689777 ####[address] [place], [place] [address]Emrvpns/Globulin (S) [Mass conc ratio]1.7Auxtbt8.1-2.2Fisher St. Agnes HospitalComment on above: Performed By: #### 17478827, 3655501, 9419374, 7039911, 4180501, 77677810, 78903506, 1776876, 9028799 ####[address] [place], [place] [address]GCF [Catalytic activity/Vol]82 Int._Unit/LNormal 21-98M[facility]rick HospitalComment on above:Performed By: #### 69744766, 0465705, 4409884, 9196586, 1494642, 53818750, 41131300, 4819933, 1370576 ####[facility] [address] [place], [place] [address]YYF No additional P-5'-P [Catalytic activity/Vol]44 Int._Unit/LNormal6-46[facility] HospitalComment on above:Performed By: #### 75012093, 4667192, 4077635, 9139566, 0620869, 38066568, 59666439, 3099333, 8801012 ####[facility] [address] [place] [address]TVY [Catalytic activity/Vol]23 Int._Unit/LNormal5-43[facility] HospitalComment on above:Performed By: #### 39350824, 1203584, 1573561, 2166741, 7555945, 00056918, 66052332, 0665529, 5531540 ####[facility] [address] [place], [place] [address]Ppbawolbr [Mass/Vol]0.8 mg/dLNormal0.0-1.1Fisher St. Agnes HospitalComment on above:Performed By: #### 13683628, 6652009, 5039679, 3928195, 0003422, 11378845, 18287803, 6554847, 9353612 ####Christophe [address] [address]Pnoykdulr.direct [Mass/Vol]0.2 mg/dLNormal0.0-0.4Fisher St. Agnes HospitalComment on above: Performed By: #### 72765376, 3589052, 1083540, 9491583, 4606012, 35435947, 12817654, 3544021, 2036947 ####Christophe [address] [address]Ribtdgfup.indirect [Mass or moles/Vol]0.6 mg/dL Normal0.1-0.9[facility] HospitalComment on above:Performed By: #### 26568169, 0778178, 7242897, 2194336, 7249508, 66632371, 14449743, 7261927, 0601907 ####[facility] [address] [place] [address]Jcukvrey (S) [Mass/Vol]3.0 g/dLNormal1.4-4.0[facility] Comment on above:Performed By: #### 53754940, 2852015, 5336761, 9350293, 2073774, 98599736, 63446344, 7686693, 5004649 ####[facility] [address] [place] [address]Nhuruyh [Mass/Vol]8.4 g/dLHigh6.0-7.8 [facility] HospitalComment on above:Performed By: #### 43075137, 5952584, 6414005, 7207120, 5024062, 15573202, 33138381, 0864485, 1752004 ####[facility] [address] [place] [address] Lactic Acidon 74-95-6575Swbjki Acid Lvl1.7 mmol/LNormal0.5-2.2Fisher St[facility] Agnes HospitalComment on above:Performed By: #### 08542523, 6345186, 3712856, 2051591, 1049778, 86570860, 68607493, 7866789, 2964493 ####[facility] [address] [place], [place] [address]Djmrut Levelon 03-13-2024 Lipase [Catalytic activity/Vol]14 U/LGnkkph55-23SlfvuhMckitrick Hospital Comment on above:Performed By: #### 70506446, 3667550, 6616879, 9702823, 4477783, 23124715, 84200766, 1623583, 9814537 ####[facility] [address] [place], [place] [address]Sjdmbaf Recordon 60-26-9011Xddnofm [id number]#1.00TIFFNormalMckitrick HospitalMonitor [id number]#1.00TIFF NormalMckitrick HospitalPT & PTTon 37-15-4444mDLW Coag (PPP) [Time]32.8 second(s)Rlgirl30.1-36.5Fisher St. Agnes HospitalComment on above:Result Comment: Parameter 15 days [...] the same coagulation reagent and instrumentation as [facility]. Currently there are no coagulation studies available worldwide for children to 14 days, andno normal ranges. Heparin therapeutic range (represented by Anti-Factor Xa activity of 0.2 - 0.4 U/mL) corresponds to PTT of 56.6 - 109.0 sec.Performed By: #### 71613323, 0232856, 5333799, 7163400, 3591493, 12305915, 00276198, 4423088, 4027071 ####[facility] [address] [place], [place] [address]WEG Coag (PPP) [Relative time]1.11 {INR}Invalid Interpretation CodeFisher St. Agnes HospitalComment on above:Result Comment: INR results are specifically intended to assess patients stabilized on long-term Anticoagulation therapy suggested INR?s ?Less Intensive Anticoagulation? 2.0 ? 3.0 Conventional Range 3.0 ? 4.5Performed By: #### 63922774, 3894413, 0192249, 9063780, 5921344, 87335286, 75386607, 1240108, 1313773 ####[facility] [address] [place], [place] [address]AV Coag (PPP) [Time]12.4 second(s)Normal9.4-12.5Fisher St. Agnes HospitalComment on above:Result Comment: 15 days - 4 weeks 1 - 5 months 6 -11 months 1-5 years 6-10 years 11 -17 years Mean: 11.2 (9.5-12.6) Mean: 11.0 (9.7-12.8) Mean: 11.0 (9.8-13.0) Mean: 11.3 (9.9-13.4) Mean: 11.7 (10.0-14.6) Mean: 11.8 (10.0 - 14.1) Pediatric Reference ranges were obtained from a study by Az Kirvin, et al. prepared from 1437 samples obtained at 7 different centers using the same coagulation reagent and instrumentation as [facility]. Currently there are no coagulation studies available worldwide for children to 14 days, andno normal ranges.Performed By: #### 53647638, 2010554, 6017618, 8860726, 7981004, 33528188, 73261066, 4169808, 0414760 ####[facility] [address] [place], [place] [address]Jfo-Gmvadkb Noteon 09-95-5798Mlr- Arrival NotePre-Arrival Summary Name: , [facility] Current Date: 03/13/2024 17:34:24 EDT Gender: Female Date of : Age: 19 Pre-Arrival Type: EMS ETA: 03/13/2024 17:59:00 EDT Primary Care Physician: Presenting Problem: fall down 10 stairs Pre-Arrival User: Payal Robison RN Referring Source: Location: Completion Date/Time: 03/13/2024 17:29:00 [facility] Emergency Department Pre-Hospital Report Form Vital Signs: 127/83; 66; 17; 96%; GCS 15 Pre-Hospital Report: Treatment in Route: C-COLLAR Response to Treatment: Misc. Issues:[facility] CenterPrescriptions/Work Noteson 07-68-4130Qeepywvgtiykj/Work Notes [id number]#1.00[facility] HospitalRAD - Preliminary Cat Scan Reporton 58-25-8993AED - Preliminary Cat Scan [id number]#1.00[facility] Medical CenterEROLOGYOrdered By: Virginia Mccain on 83-81-2346Uqga HCG ( test) QlNegative (03/13/24 6:53 PM)NormalMEMORIAL [facility] Man SeroTroponinon 86-46-2786Tgqlbazi1.10 pg/mLLow 10.10-27.10[facility]rick HospitalComment on above:Result Comment: The 95% CI (Confidence Interval) PPV (Positive Predictive Value) for myocardial infa rction in females is 38 pg/mL, in males 51 pg/mL. The results should be used in conjunction with clinical conditions of myocardial infarction. (Access High Sensitivity Troponin I Instructions For Use, [place], June 2018)Performed By: #### 57051886, 7271750, 2370301, 4239486, 2223332, 18467688, 46752479, 2922377, 6113149 ####[facility] [address] [place], [place] [address]bFDTeu 08-28-2223gGJA65 mL/min/1.73 p0Okllhl>=59Mckitrick HospitalComment on above:Order Comment: qns to run. phlebotomists notified of recollect by message. [id number] 03/13/2024 18:28:21 EDTOrder added by Discern Expert.Performed By: #### 87196936, 1563493, 3322641, 2663382, 8928371, 32416349, 51050629, 9540668, 7121272 ####[facility] [address] [place], [place] [address]Ktlvujluvvk Screen Ql (U) Ordered By: Familia Christian on 04-09-3360Hlrokxvzqlwt Ql (U)NegativeNegSelect Medical Cleveland Clinic Rehabilitation Hospital, AvonBarbiturates [Presence] in Urine by Screen methodOrdered By: Familia Christian on 76-61-9291Uqxfsbnhrlgg Screen Ql (U)NegativeNegSelect Medical Cleveland Clinic Rehabilitation Hospital, AvonBenzodiazepines Screen Ql (U)Ordered By: Familia Christian on 50-23-9825Cbbxzpqczwvupxd Ql (U)NegativeNegSelect Medical [facility], AvonBenzoylecgonine [Presence] in Urine by Screen methodOrdered By: Familia Christina on 10-30-2526Lahjqifalgclijv Screen Ql (U)NegativeNegSelect Medical [facility] Clinic [facility], AvonCannabinoids [Presence] in Urine by Screen methodOrdered By: Familia Christian on 85-77-7636Wqyopszsujzo Screen Ql (U)PositiveNegativeTrihealthComment on above:These are unconfirmed results and should not be used for legal purposes. Drug Cut-Off Concentration: AMPH 1000 ng/mL NIKOLAS 200 ng/mL SHRAVAN 200 ng/mL COCM 300 ng/mL OP 300 ng/mL PCP 25 ng/mL THC 20 ng/mLHCG ( test) IA.rapid Ql (U)Ordered By: Familia Christian on 68-95-8011HFW ( test) Ql (U)NegativeTrihealthOpiates [Presence] in Urine by Screen methodOrdered By: Familia Christian on 84-28-9166Svzfnrl Screen Ql (U)NegativeNegativeTrihealthPhencyclidine Screen Ql (U)Ordered By: Familia Christian on 02-98-1626Zedlqerlollqy Ql (U)Negative NegativeTrihealthCOVID-19 Detected/Not DetectedOrdered By: Modesta Chand on 06-83-4219FYLJ-CoV-2 (COVID-19) RNA JANAK+non-probe Ql (Nph)Not detectedNot DetectSelect Medical Specialty Hospital - CincinnatiComment on above: This is a duplicate RP2.1 COVID (PCR) result to be used for statistical tracking purpose only.Respiratory pathogens DNA and RNA panel - Nasopharynx by JANAK with non-probe detectionOrdered By: Modesta Chand on 36-78-8983Tnravzhrrqx pathogens DNA and RNA panel JANAK+non-probe (Nph)[facility] Basophils Auto (Bld) [#/Vol]Ordered By: Anette Stout on 59-43-8218Tvshchqbs (Bld) [#/Vol]0.0 10*3/uL0.0-0.1FPaulding County HospitalBasophils/100 WBC Auto (Bld)Ordered By: Anette Stout on 60-31-1089Pitexrltg/100 WBC (Bld)0.4 %. TrihealthEosinophils Auto (Bld) [#/Vol]Ordered By: Anette Stout on 93-63-1737Odbwwgtmmkg (Bld) [#/Vol]0.7 10*3/uL0.0-0.7FPaulding County HospitalEosinophils/100 WBC Auto (Bld)Ordered By: Anette Stout on 51-66-5857Eklylzdsptl/100 WBC (Bld)5.5 %.[facility] Erythrocyte distribution width Auto (RBC) [Ratio]Ordered By: Anette Stout on 96-45-6427Gbksgidvorf distribution width (RBC) [Ratio]13.5 %11.9-15.3FPaulding County HospitalEstimated glomerular filtration rate (GFR) non- AmericanOrdered By: Anette Stout on 87-32-3265QWC/1.73 sq M.predicted among non- blacks MDRD (S/P/Bld) [Vol rate/Area]> 60 mL/MinTrihealthHematocrit Auto (Bld) [Volume fraction]Ordered By: Anette Stout on 67-28-8202Cseqlrfjax (Bld) [Volume fraction]41.5 %36.0-46.0TrihealthHemoglobin [Mass/volume] in BloodOrdered By: Anette Stout on 29-86-3274Yixdrcelum (Bld) [Mass/Vol]14.0 g/dL12.0-16.0TrihealthLeukocytes [#/volume] corrected for nucleated erythrocytes in Blood by Automated counOrdered By: Anette Stout on 06-00-0315WOO corrected for nucl RBC Auto (Bld) [#/Vol]12.1 10*3/uL4.5-13.5FPaulding County Hospital Lymphocytes Auto (Bld) [#/Vol]Ordered By: Anette Stout on 09-78-7707Puolbblsrwq (Bld) [#/Vol]2.5 10*3/uL1.20-4.8TrihealthLymphocytes/100 WBC Auto (Bld)Ordered By: Anette Stout on 25-81-0278Fmpkulvyowi/100 WBC (Bld) 20.9 %.TrihealthMCH Auto (RBC) [Entitic mass]Ordered By: Anette Stout on 68-45-3277MIA (RBC) [Entitic mass]28.8 pg25.0-35.0TrihealthMCHC Auto (RBC) [Mass/Vol]Ordered By: Anette Stout on 89-37-2608HRRS (RBC) [Mass/Vol]33.7 g/dL31.0-37.0TrihealthMCV Auto (RBC) [Entitic vol]Ordered By: Anette Stout on 66-33-0575XQL (RBC) [Entitic vol]85.5 xE06-215WmxqjlrpdTrihealthMonocytes Auto (Bld) [#/Vol]Ordered By: Anette Stout on 25-28-4708Ppowcwuak (Bld) [#/Vol]0.9 10*3/uL 0.1-1.00TrihealthMonocytes/100 WBC Auto (Bld)Ordered By: Anette Stout on 98-61-5101Bdhyyvuld/100 WBC (Bld)7.5 %.TrihealthNeutrophils Auto (Bld) [#/Vol]Ordered By: Anette Sotut on 56-63-4103Fbobomvwoet (Bld) [#/Vol]8.0 10*3/uL1.2-7.7FPaulding County HospitalNeutrophils/100 WBC Auto (Bld)Ordered By: Anette Stout on 01-07-2023 Neutrophils/100 WBC (Bld)65.7 %.TrihealthNo Panel InformationOrdered By: Anette Stout on 01-07-2023> 60 mL/MinTrihealth113.92TrihealthNucleated erythrocytes [Presence] in Blood by Automated countOrdered By: Anette Stout on 01-07-2023 Nucleated RBC Auto Ql (Bld)0.1 /100{WBC}0-0.5FPaulding County Hospital Platelet mean volume Auto (Bld) [Entitic vol]Ordered By: Anette Stout on 95-04-7032Yuauhazv mean volume (Bld) [Entitic vol]8.6 fL6.3-10.7FPaulding County HospitalPlatelets Auto (Bld) [#/Vol]Ordered By: Anette Stout on 29-90-4499Acuusnuex (Bld) [#/Vol]222 10*3/yF548-228JjmqplzqdTrihealthRBC Auto (Bld) [#/Vol]Ordered By: Anette Stout on 37-99-9255FIP (Bld) [#/Vol]4.85 10*6/uL4.10-5.10Samaritan Hospitalerum or plasma anion gap determinationOrdered By: Anette Stout on 25-87-4353Eyngf gap [Moles/Vol]N/AFSumma Health Wadsworth - Rittman Medical Centererum or plasma calcium measurement (mass/volume)Ordered By: Anette Stout on 43-49-2742Obbxhil [Mass/Vol] 8.5 mg/dL8.2-10.2FSumma Health Wadsworth - Rittman Medical Centererum or plasma chloride measurement (moles/volume)Ordered By: Anette Stout on 08-21-4007Eewrkhjx [Moles/Vol]103 mmol/A14-822LtnwsnxzdSamaritan Hospitalerum or plasma creatinine measurement with calculation of estimated glomerular filtrOrdered By: Anette Stout on 21-86-1316Ljeabqvkdu and Glomerular filtration rate.predicted panel (S/P/Bld)0.77 mg/dL0.44-1.03Samaritan Hospitalerum or plasma glucose measurement (mass/volume)Ordered By: Anette Stout on 01-07-2023 Glucose [Mass/Vol]90 mg/yW96-731LlduibgjnSamaritan Hospitalerum or plasma potassium measurement (moles/volume)Ordered By: Eliana Bautista on 01-07-2023 Potassium [Moles/Vol]3.2 mmol/L3.5-5.1FSumma Health Wadsworth - Rittman Medical Centererum or plasma sodium measurement (moles/volume)Ordered By: Anette Stout on 01-07-2023 Sodium [Moles/Vol]134 mmol/T906-411OixcgqyjtSamaritan Hospitalerum or plasma total carbon dioxide measurement (moles/volume)Ordered By: Anette Stout on 27-32-4770GQ9 [Moles/Vol]23.4 mmol/L22.0-30.0[facility] Serum or plasma urea nitrogen measurement (mass/volume)Ordered By: Anette Stout on 90-44-4454Vdko nitrogen [Mass/Vol]8 mg/dL9-23TrihealthWBC Auto (Bld) [#/Vol]Ordered By: Anette Stout on 84-25-9570YKK (Bld) [#/Vol]12.1 10*3/uL4.5-13.5FPaulding County HospitalAmphetamine Screen Ql (U)Ordered By: Anette Stout on 94-90-2422Fjazhvqfcimy Ql (U)NegativeNegative TrihealthAutomated erythrocytes count in urine sediment (number/area)Ordered By: Rd Brown on 74-36-1751FYZ Auto (Urine sed) [#/Area] None seen [HPF]0-4FPaulding County HospitalAutomated leukocytes count in urine sediment (number/area)Ordered By: Rd Brown on 98-09-3561TFK Auto (Urine sed) [#/Area]20-49 [HPF]0-4FPaulding County HospitalAutomated urine hyaline casts count (number/volume)Ordered By: Rd Brown on 01-06-2023 Hyaline casts Auto (U) [#/Vol]None seen [LPF]0-1FPaulding County HospitalBarbiturates [Presence] in UrineOrdered By: Anette Stout on 01-06-2023 Barbiturates Ql (U)NegativeNegativeTrihealthBasophils Auto (Bld) [#/Vol]Ordered By: Rd Brown on 93-59-0148Gonqwgnof (Bld) [#/Vol] 0.0 10*3/uL0.0-0.1FPaulding County HospitalBasophils/100 WBC Auto (Bld) Ordered By: Rd Brown on 59-27-7811Brkqyscmn/100 WBC (Bld)0.3 %.TrihealthBenzodiazepines [Presence] in UrineOrdered By: Anette Stout on 33-43-6954Spiwjunepsqtcpx Ql (U)NegativeNegativeTrihealthBilirubin Test strip Ql (U)Ordered By: Rd Brown on 01-06-2023 Bilirubin Ql (U)NegativeNegativeTrihealthBody fluid albumin measurement (mass/volume)Ordered By: Rd Brown on 94-25-2298Mstkcbe (Body fld) [Mass/Vol]4.9 g/dL3.2-5.5FPaulding County Hospital Cannabinoids [Presence] in Urine by Screen methodOrdered By: Anette Stout on 88-77-8075Lruwrklzorrg Screen Ql (U)PositiveNegativeTrihealthCasts typing in urine sediment by light microscopyOrdered By: Rd Brown on 64-84-3449Vrhja LM Nom (Urine sed)None seen [LPF]None SeenTrihealthColor Auto (U)Ordered By: Rd Brown on 87-52-4931Lcwne (U) YellowYellowTrihealthEosinophils Auto (Bld) [#/Vol] Ordered By: Rd Brown on 43-09-0908Pbqwbxiumgb (Bld) [#/Vol]0.4 10*3/uL 0.0-0.7FPaulding County HospitalEosinophils/100 WBC Auto (Bld)Ordered By: Rd Brown on 03-35-5291Zwcsipfgbnj/100 WBC (Bld)2.3 %.TrihealthErythrocyte distribution width Auto (RBC) [Ratio]Ordered By: Rd Brown on 02-98-9308Qxthamcdoxy distribution width (RBC) [Ratio]13.5 % 11.9-15.3FPaulding County HospitalEstimated glomerular filtration rate (GFR) non- AmericanOrdered By: Rd Brown on 08-55-8404FFS/1.73 sq M.predicted among non-blacks MDRD (S/P/Bld) [Vol rate/Area]> 60 mL/MinTrihealthGlobulin Calc (S) [Mass/Vol]Ordered By: Rd Brown on 27-21-0854Otdojpss (S) [Mass/Vol]2.9 g/dLTrihealthHCG ( test) IA.rapid Ql (U)Ordered By: Rd Brown on 64-17-2585NZO ( test) Ql (U)NegativeTrihealthHematocrit Auto (Bld) [Volume fraction]Ordered By: Rd Brown on 19-68-4790Ueeotfgxag (Bld) [Volume fraction]48.3 %36.0-46.0TrihealthHemoglobin [Mass/volume] in BloodOrdered By: Rd Brown on 00-88-3935Qhefmkseiv (Bld) [Mass/Vol]16.2 g/dL12.0-16.0TrihealthKetones Auto test strip (U) [Mass/Vol]Ordered By: Rd Brown on 42-04-9478Sxpwboe (U) [Mass/Vol] 4+NegativeTrihealthLeukocytes [#/volume] corrected for nucleated erythrocytes in Blood by Automated counOrdered By: Rd Brown on 09-18-2066VUH corrected for nucl RBC Auto (Bld) [#/Vol]17.7 10*3/uL4.5-13.5 TrihealthLymphocytes Auto (Bld) [#/Vol]Ordered By: Rd Brown on 33-91-6045Gpafugxroke (Bld) [#/Vol]3.5 10*3/uL1.20-4.8TrihealthLymphocytes/100 WBC Auto (Bld)Ordered By: Rd Brown on 68-56-3656Nyxtowqhibs/100 WBC (Bld)19.9 %.[facility] Auto (RBC) [Entitic mass]Ordered By: Rd Brown on 67-76-4154LSA (RBC) [Entitic mass]28.7 pg25.0-35.0TrihealthMCHC Auto (RBC) [Mass/Vol]Ordered By: Rd Brown on 23-39-4418GWQD (RBC) [Mass/Vol]33.6 g/dL 31.0-37.0TrihealthMCV Auto (RBC) [Entitic vol]Ordered By: Rd Brown on 69-48-2291SAT (RBC) [Entitic vol]85.4 kJ66-205DejptkulyTrihealthMonocyte distribution width [Entitic volume] in Blood by AutomatedOrdered By: Rd Brown on 12-09-1830Zgxmmplb distribution width Auto (Bld) [Entitic vol]15.43 %0.00-20.00TrihealthMonocytes Auto (Bld) [#/Vol]Ordered By: Rd Brown on 64-01-6947Pfzhexdvs (Bld) [#/Vol] 1.3 10*3/uL0.1-1.00TrihealthMonocytes/100 WBC Auto (Bld) Ordered By: Rd Brown on 43-09-8320Cujfsltmo/100 WBC (Bld)7.4 %.TrihealthNeutrophils Auto (Bld) [#/Vol]Ordered By: Rd Brown on 86-72-9236Oitwsvuoikh (Bld) [#/Vol]12.4 10*3/uL1.2-7.7FPaulding County HospitalNeutrophils/100 WBC Auto (Bld)Ordered By: dR Brown on 72-08-6152Vqygsupxwoz/100 WBC (Bld)70.1 %.[facility] Nitrite Test strip Ql (U)Ordered By: Rd Brown on 40-52-6757Mdiyshq Ql (U) NegativeNegativeTrihealthNo Panel InformationOrdered By: Anette Stout on 54-40-5091RkzdfvahGvbworpsGhacadausSelect Medical [facility] Hospital, AvonNo Panel InformationOrdered By: Rd Brown on 01-06-2023> 60 mL/MinTrihealth31.0 U/O01-98QgluagdkiTrihealth102.00 TrihealthNucleated erythrocytes [Presence] in Blood by Automated countOrdered By: Rd Brown on 34-77-3587Okulxzhxj RBC Auto Ql (Bld) 0.1 /100{WBC}0-0.5FPaulding County HospitalPhencyclidine Screen Ql (U) Ordered By: Anette Stout on 40-18-2209Caxbndnbcbxix Ql (U)NegativeNegative TrihealthPlatelet mean volume Auto (Bld) [Entitic vol] Ordered By: Rd Brown on 33-44-7208Mrccxfyt mean volume (Bld) [Entitic vol] 8.5 fL6.3-10.7FPaulding County HospitalPlatelets Auto (Bld) [#/Vol] Ordered By: Rd Brown on 34-40-7257Ebcvklddr (Bld) [#/Vol]296 10*3/sF813-215 [facility]Protein Auto test strip (U) [Mass/Vol]Ordered By: Rd Brown on 32-97-4871Kdxifyq (U) [Mass/Vol]100 mg/dLNegativeTrihealthProtein [Mass/volume] in Serum or PlasmaOrdered By: Rd Brown on 06-12-2906Uqgstpg [Mass/Vol]7.8 g/dL6.1-7.9TrihealthRBC Auto (Bld) [#/Vol]Ordered By: Rd Brown on 93-23-5637UIN (Bld) [#/Vol]5.65 10*6/uL4.10-5.10Sam[facility]itan Hospitalerum or plasma alanine aminotransferase measurement without P-5'-P (enzymatic activi Ordered By: Rd Brown on 28-78-9103LIQ No additional P-5'-P [Catalytic activity/Vol]20 U/Z54-66PlxgywaueSamaritan Hospitalerum or plasma albumin/globulin mass ratioOrdered By: Rd Brown on 01-06-2023 Albumin/Globulin [Mass ratio]1.7 {ratio}[facility] Hospitalerum or plasma alkaline phosphatase measurement (enzymatic activity/volume)Ordered By: Rd Brown on 81-72-4528EUT [Catalytic activity/Vol]66 U/W83-39CjmbmsldvSamaritan Hospitalerum or plasma anion gap determinationOrdered By: Rd Brown on 52-58-8796Nkhhe gap [Moles/Vol]19.4 mmol/L6.0-15.0[facility] Hospitalerum or plasma aspartate aminotransferase measurement (enzymatic activity/volume)Ordered By: Rd Brown on 53-52-0538OOQ [Catalytic activity/Vol]20 U/T06-04HelnygijdSamaritan Hospitalerum or plasma calcium measurement (mass/volume)Ordered By: Rd Brown on 68-56-1830Riilbxg [Mass/Vol]9.8 mg/dL8.2-10.2FSumma Health Wadsworth - Rittman Medical Centererum or plasma chloride measurement (moles/volume)Ordered By: Rd Brown on 01-06-2023 Chloride [Moles/Vol]91 mmol/J32-987XanotabgtSamaritan Hospitalerum or plasma creatinine measurement with calculation of estimated glomerular filtr Ordered By: Rd Brown on 59-34-7053Lmcdjcjmwa and Glomerular filtration rate.predicted panel (S/P/Bld)0.86 mg/dL0.44-1.03[facility] Hospitalerum or plasma glucose measurement (mass/volume)Ordered By: Rd Brown on 63-15-5944Emoxmpp [Mass/Vol]80 mg/bU07-046XhopvftuhTrihealth Serum or plasma potassium measurement (moles/volume)Ordered By: Rd Brown on 69-03-4018Maqgytzzy [Moles/Vol]2.7 mmol/L3.5-5.1FSumma Health Wadsworth - Rittman Medical Centererum or plasma sodium measurement (moles/volume)Ordered By: Rd Brown on 44-68-2642Xazdjq [Moles/Vol]132 mmol/P366-718WjljdwuumSamaritan Hospitalerum or plasma total bilirubin measurement (mass/volume)Ordered By: dR Brown on 00-11-8276Ulcafltdg [Mass/Vol]1.5 mg/dL0.3-1.2FSumma Health Wadsworth - Rittman Medical Centererum or plasma total carbon dioxide measurement (moles/volume) Ordered By: Rd Brown on 10-70-8279EQ9 [Moles/Vol]24.3 mmol/L22.0-30.0 [facility] Hospitalerum or plasma urea nitrogen measurement (mass/volume)Ordered By: Rd Brown on 81-82-2783Ayid nitrogen [Mass/Vol]19 mg/dL9-23Samaritan Hospitalpecific gravity Auto test strip (U) [Rel density]Ordered By: Rd Brown on 52-94-6973Kykpcxwj gravity (U) [Rel density]1.0271.001-1.030Sam[facility]itan Hospitalquamous epithelial cells detection in urine sediment by light microscopyOrdered By: Rd Brown on 19-04-0223Qtbpipbztx cells.squamous LM Ql (Urine sed)10-19 [HPF]0-2FPaulding County HospitalTroponin I.cardiac [Mass/volume] in Serum or Plasma by High sensitivity methodOrdered By: Federico Randolph on 90-78-6949Igvqagzc I.cardiac High sensitivity method [Mass/Vol]6 pg/mL0-15TrihealthUrine bacteria detection by automated methodOrdered By: Rd Brown on 16-11-8289Iseaobzb Auto Ql (U)1+None SeenTrihealthUrine clarity by refractometry automatedOrdered By: Rd Brown on 09-74-7078Hoehkay Refractometry automated (U)CloudyClearFPaulding County HospitalUrine cocaine detectionOrdered By: Anette Stout on 01-06-2023 Cocaine Ql (U)NegativeNegativeTrihealthUrine glucose measurement by automated test strip (mass/volume)Ordered By: Rd Brown on 04-69-1051Kxvtyes Auto test strip (U) [Mass/Vol]Normal mg/dLNoTrumbull Memorial HospitalUrine hemoglobin detection by automated test stripOrdered By: Rd Brown on 48-43-7670Tbfhzphbdw Auto test strip Ql (U)3+Negative TrihealthUrine lactic acid measurementOrdered By: Rd Brown on 23-89-9248Ytbzgeo (U) [Moles/Vol]1.6 mmol/L0.5-2.2FPaulding County HospitalUrine leukocyte esterase detection by automated test stripOrdered By: Rd Brown on 57-12-7466Mbwjtnxwj esterase Auto test strip Ql (U)2+ NegativeTrihealthUrobilinogen Auto test strip (U) [Mass/Vol]Ordered By: Rd Brown on 73-01-6002Cddmwhukughh (U) [Mass/Vol] Normal mg/dLNoTrumbull Memorial HospitalWBC Auto (Bld) [#/Vol]Ordered By: Rd Brown on 45-59-1539IHB (Bld) [#/Vol]17.7 10*3/uL4.5-13.5FPaulding County HospitalpH Auto test strip (U)Ordered By: Rd Brown on 19-15-6897yI (U)6.5 [pH]5.0-9.0TrihealthAlbumin [Mass/volume] in Serum or PlasmaOrdered By: Ravi Arguello on 44-68-0820Xscccuw [Mass/Vol]5.0 g/dL3.2-5.5FPaulding County HospitalAutomated erythrocytes count in urine sediment (number/area)Ordered By: Ravi Arguello on 37-42-5079SBX Auto (Urine sed) [#/Area]3-4 [HPF]0-4FPaulding County HospitalAutomated leukocytes count in urine sediment (number/area)Ordered By: Ravi Arguello on 61-44-1202EMX Auto (Urine sed) [#/Area]50-100 [HPF]0-4FPaulding County HospitalAutomated urine hyaline casts count (number/volume)Ordered By: Ravi Arguello on 38-51-7671Vftvvcd casts Auto (U) [#/Vol]None seen [LPF]0-1FPaulding County HospitalBasophils Auto (Bld) [#/Vol]Ordered By: Ravi Arguello on 74-76-8063Pjciiytsb (Bld) [#/Vol]0.1 10*3/uL0.0-0.1FPaulding County HospitalBasophils/100 WBC Auto (Bld)Ordered By: Ravi Arguello on 01-02-2023 Basophils/100 WBC (Bld)0.5 %.TrihealthBilirubin Test strip Ql (U)Ordered By: Ravi Arguello on 66-80-8526Fgzcgpbiy Ql (U)Negative NegativeTrihealthCasts typing in urine sediment by light microscopyOrdered By: Ravi Arguello on 62-16-1390Ozmbn LM Nom (Urine sed)None seen [LPF]None SeenTrihealthColor Auto (U)Ordered By: Ravi Arguello on 60-89-0381Orgyj (U)YellowYellowTrihealth Eosinophils Auto (Bld) [#/Vol]Ordered By: Ravi Arguello on 80-93-7932Dzkjwsqtayg (Bld) [#/Vol]0.0 10*3/uL0.0-0.7FPaulding County HospitalEosinophils/100 WBC Auto (Bld)Ordered By: Ravi Arguello on 63-33-6074Ahaxkhfjgfs/100 WBC (Bld)0.0 %.TrihealthErythrocyte distribution width Auto (RBC) [Ratio]Ordered By: Ravi Arguello on 96-50-4219Hsqoafmjqvo distribution width (RBC) [Ratio]13.9 %11.9-15.3FPaulding County HospitalEstimated glomerular filtration rate (GFR) non- AmericanOrdered By: Ravi Arguello on 94-64-5052USX/1.73 sq M.predicted among non-blacks MDRD (S/P/Bld) [Vol rate/Area]> 60 mL/MinTrihealthGlobulin Calc (S) [Mass/Vol]Ordered By: Ravi Arguello on 48-68-5844Zjfzhiui (S) [Mass/Vol]2.9 g/dL TrihealthHCG ( test) IA.rapid Ql (U)Ordered By: Ravi Arguello on 60-67-6248NEK ( test) Ql (U)NegativeTrihealthHematocrit Auto (Bld) [Volume fraction]Ordered By: Ravi Arguello on 10-65-8386Gwavlipdjg (Bld) [Volume fraction]42.1 %36.0-46.0TrihealthHemoglobin [Mass/volume] in BloodOrdered By: Ravi Arguello on 44-53-1067Ziabfpyxcs (Bld) [Mass/Vol]14.0 g/dL12.0-16.0TrihealthKetones Auto test strip (U) [Mass/Vol]Ordered By: Ravi Arguello on 88-24-6443Ginutfv (U) [Mass/Vol]3+NegativeTrihealth Leukocytes [#/volume] corrected for nucleated erythrocytes in Blood by Automated counOrdered By: Ravi Arguello on 21-31-5686BTH corrected for nucl RBC Auto (Bld) [#/Vol]14.1 10*3/uL4.5-13.5FPaulding County HospitalLymphocytes Auto (Bld) [#/Vol]Ordered By: Ravi Arguello on 02-43-4334Wshhijcaikz (Bld) [#/Vol]1.4 10*3/uL1.20-4.8TrihealthLymphocytes/100 WBC Auto (Bld) Ordered By: Ravi Arguello on 28-43-7896Jhvugvltgup/100 WBC (Bld)10.1 %.[facility]H Auto (RBC) [Entitic mass]Ordered By: Ravi Arguello on 95-17-3283XIT (RBC) [Entitic mass]28.6 pg25.0-35.0TrihealthMCHC Auto (RBC) [Mass/Vol]Ordered By: Ravi Arguello on 87-58-9651AMDM (RBC) [Mass/Vol]33.2 g/dL31.0-37.0TrihealthMCV Auto (RBC) [Entitic vol]Ordered By: Ravi Arguello on 76-63-1409OZG (RBC) [Entitic vol]86.2 aO77-299GmqbmjwsgTrihealthMonocyte distribution width [Entitic volume] in Blood by AutomatedOrdered By: Ravi Arguello on 89-81-2432Tcubeecb distribution width Auto (Bld) [Entitic vol]16.52 %0.00-20.00TrihealthMonocytes Auto (Bld) [#/Vol]Ordered By: Ravi Arguello on 01-02-2023 Monocytes (Bld) [#/Vol]1.0 10*3/uL0.1-1.00[facility] Monocytes/100 WBC Auto (Bld)Ordered By: Ravi Arguello on 47-33-3063Syfhnrapd/100 WBC (Bld)7.0 %.TrihealthNeutrophils Auto (Bld) [#/Vol] Ordered By: Ravi Arguello on 75-93-0145Hjbqsahikod (Bld) [#/Vol]11.6 10*3/uL 1.2-7.7FPaulding County HospitalNeutrophils/100 WBC Auto (Bld)Ordered By: Ravi Arguello on 91-66-7181Gvwzfjrqjqw/100 WBC (Bld)82.4 %.TrihealthNitrite Test strip Ql (U)Ordered By: Ravi Arguello on 01-02-2023 Nitrite Ql (U)NegativeNegativeTrihealthNo Panel InformationOrdered By: Ravi Arguello on 01-02-2023> 60 mL/MinTrihealth29.0 U/D56-29BbnfeuufoTrihealth86.85TrihealthNucleated erythrocytes [Presence] in Blood by Automated countOrdered By: Ravi Arguello on 66-91-8600Doittrbrh RBC Auto Ql (Bld)0.0 /100{WBC}0-0.5FPaulding County HospitalPlatelet mean volume Auto (Bld) [Entitic vol]Ordered By: Ravi Arguello on 98-59-6913Zxraxalv mean volume (Bld) [Entitic vol]8.4 fL6.3-10.7FPaulding County HospitalPlatelets Auto (Bld) [#/Vol]Ordered By: Ravi Arguello on 84-07-8213Ikygnpxan (Bld) [#/Vol]299 10*3/uL 150-450TrihealthProtein Auto test strip (U) [Mass/Vol] Ordered By: Ravi Arguello on 80-95-4522Bfhehjo (U) [Mass/Vol]100 mg/dLNegative TrihealthProtein [Mass/volume] in Serum or PlasmaOrdered By: Ravi Arguello on 64-36-5319Ipbsepu [Mass/Vol]7.9 g/dL6.1-7.9TrihealthRBC Auto (Bld) [#/Vol]Ordered By: Ravi Arguello on 44-55-9429QNY (Bld) [#/Vol]4.89 10*6/uL4.10-5.10[facility] Hospitalerum or plasma alanine aminotransferase measurement without P-5'-P (enzymatic activiOrdered By: Ravi Arguello on 25-98-4198XRH No additional P-5'-P [Catalytic activity/Vol]26 U/Q83-41GwtedksgoSamaritan Hospitalerum or plasma albumin/globulin mass ratioOrdered By: Ravi Arguello on 01-02-2023 Albumin/Globulin [Mass ratio]1.7 {ratio}[facility] Hospitalerum or plasma alkaline phosphatase measurement (enzymatic activity/volume)Ordered By: Ravi Arguello on 46-12-3167PCU [Catalytic activity/Vol]60 U/M56-94AcuyvxnzkSamaritan Hospitalerum or plasma anion gap determinationOrdered By: Ravi Arguello on 22-78-8960Kcnzn gap [Moles/Vol]16.4 mmol/L6.0-15.0[facility] Hospitalerum or plasma aspartate aminotransferase measurement (enzymatic activity/volume)Ordered By: Ravi Arguello on 64-35-4579ZBF [Catalytic activity/Vol]32 U/D39-52HpedqyrtpSamaritan Hospitalerum or plasma calcium measurement (mass/volume)Ordered By: Ravi Arguello on 34-42-3944Tcqwryd [Mass/Vol]9.8 mg/dL8.2-10.2FSumma Health Wadsworth - Rittman Medical Centererum or plasma chloride measurement (moles/volume)Ordered By: Ravi Arguello on 01-02-2023 Chloride [Moles/Vol]106 mmol/Y34-468VzhgflwlkSamaritan Hospitalerum or plasma creatinine measurement with calculation of estimated glomerular filtr Ordered By: Ravi Arguello on 64-94-8132Kbbikxwens and Glomerular filtration rate.predicted panel (S/P/Bld)1.01 mg/dL0.44-1.03[facility] Hospitalerum or plasma glucose measurement (mass/volume)Ordered By: Ravi Arguello on 39-78-0567Isbtjoh [Mass/Vol]123 mg/vV24-227ZugqsqqidTrihealth Serum or plasma potassium measurement (moles/volume)Ordered By: Ravi Arguello on 96-95-2894Vnndlfnkr [Moles/Vol]3.2 mmol/L3.5-5.1FSumma Health Wadsworth - Rittman Medical Centererum or plasma sodium measurement (moles/volume)Ordered By: Ravi Arguello on 97-11-6182Mqlvqy [Moles/Vol]142 mmol/M452-398FlwyjyfezSamaritan Hospitalerum or plasma total bilirubin measurement (mass/volume)Ordered By: Ravi Arguello on 82-05-3262Ezdprfryq [Mass/Vol]0.8 mg/dL0.3-1.2FSumma Health Wadsworth - Rittman Medical Centererum or plasma total carbon dioxide measurement (moles/volume) Ordered By: Ravi Arguello on 82-74-8462KO9 [Moles/Vol]22.8 mmol/L22.0-30.0 [facility] Hospitalerum or plasma urea nitrogen measurement (mass/volume)Ordered By: Ravi Arguello on 68-02-0409Yvvs nitrogen [Mass/Vol]22 mg/dL9-23Samaritan Hospitalpecific gravity Auto test strip (U) [Rel density]Ordered By: Ravi Arguello on 15-43-4147Heekqskk gravity (U) [Rel density]1.0361.001-1.030[facility]itan Hospitalquamous epithelial cells detection in urine sediment by light microscopyOrdered By: Ravi Arguello on 28-71-2043Zcjhbuuchu cells.squamous LM Ql (Urine sed)Innumerable [HPF]0-2 [facility]healthU[facility] bacteria detection by automated method Ordered By: Ravi Arguello on 62-24-4889Ffoaguts Auto Ql (U)3+None SeenTrihealthUrine clarity by refractometry automatedOrdered By: Ravi Arguello on 38-64-1307Dnvwkiy Refractometry automated (U)TurbidClear TrihealthUrine culture routineOrdered By: Ravi Arguello on 93-07-5955Vxvpjdqj identified Cx Nom (U)[facility] Urine glucose measurement by automated test strip (mass/volume)Ordered By: Ravi Arguello on 13-16-8009Amoqmwx Auto test strip (U) [Mass/Vol]Normal mg/dL NormalTrihealthUrine hemoglobin detection by automated test stripOrdered By: Ravi Arguello on 88-37-1380Pxxmvwwfsn Auto test strip Ql (U)NegativeNegativeTrihealthUrine leukocyte esterase detection by automated test stripOrdered By: Ravi Arguello on 19-31-1691Jkaygcapg esterase Auto test strip Ql (U)3+NegativeTrihealth Urobilinogen Auto test strip (U) [Mass/Vol]Ordered By: Ravi Arguello on 57-26-2905Viiwebiwehsl (U) [Mass/Vol]Normal mg/dLNormalTrihealthWBC Auto (Bld) [#/Vol]Ordered By: Ravi Arguello on 44-61-1825PUJ (Bld) [#/Vol]14.1 10*3/uL4.5-13.5[facility] CenterpH Auto test strip (U)Ordered By: Ravi Arguello on 64-43-9737rG (U)6.0 [pH]5.0-9.0TrihealthCULTURE URINEon 04-21-1957AYPBSFY URINECulture Observations: LIGHT GROWTH OF MIXED GENITAL JORI. NO POTENTIAL PATHOGENS SEEN.NormalSt. John Of God HospitalComment on above:Performed By: #### URCX #### [facility] [address] [place] [address] Dr. Dacia AckermanCovid-19 PCR (CVDTB)on 01-18-6419EJYY-CoV-2 (COVID-19) RNA JANAK+probe Ql (Unsp spec)Not detectedNormalNOT DETECTEDThe [facility] Comment on above:Result Comment: When diagnostic [...] for this test is supported by the [employer] of [employer] and Human Service's declaration that [...] longer be used).Performed By: #### CVDTBH #### [facility] [address] [place] [address] Dr. Dacia AckermanDRUG SCREEN RAPID (URINE)on 20-89-9311LXKIoqlyboxJbokoxAVISHLPA St. John Of God HospitalComment on above:Performed By: #### DRUGRPD #### [facility] [address] [place] [address] Dr. Dacia AckermanBARNegativeNormalNEGATIVEThe [facility]ittman HospitalComment on above: Performed By: #### DRUGRPD #### [facility] [address] [place] [address] Dr. Dacia CondonPNegativeNormalNEGATIVESt. John Of God HospitalComment on above: Performed By: #### DRUGRPD #### [facility] [address] [place] [address] Dr. Dacia MontanoZONegativeNormalNEGATIVESt. John Of God HospitalComment on above: Performed By: #### DRUGRPD #### [facility] [address] [place] [address] Dr. Dacia MonaeCNegativeNormalNEGATIVESt. John Of God HospitalComment on above: Performed By: #### DRUGRPD #### [facility] [address] [place] [address] Dr. Dacia LowryWright-Patterson Medical CenterComment on above: Result Comment: AMP (Amphetamine): 500ng/mL, BAR (Barbituates): 200 ng/mL, BZO (Benzodiazepines): 150 ng/mL, BUP (Buprenorphine): 10 ng/mL, MELINA (Cocaine): 150 ng/mL, mAMP (Methamphetamine): 500 ng/mL, MTD (Methadone): 200 ng/mL, OPI (Opiates): 100 ng/mL, OXY (Oxycodone): 100 ng/mL, PCP (Phencyclidine): 25 ng/mL, PPX (Propoxyphene): 300 ng/mL, THC (Cannabinoids): 50 ng/mL, TCA (Trycyclic Antidepressants): 300 ng/mLPerformed By: #### DRUGRPD #### [facility] [address] [place] [address] Dr. Dacia AckermanDRUG CUT HEADERDRUG CLASS TEST SYSTEM CUT-OFF CONCENTRATIONS ARE FOLLOWS:NormalThe [facility] HospitalComholland hospital on above:Performed By: #### DRUGRPD #### [facility] [address] [place] [address] Dr. Dacia De La CruzMPNegativeNormalNEGATIVESt. John Of God HospitalComholland hospital on above: Performed By: #### DRUGRPD #### [facility] [address] [place] [address] Dr. Yilan ChangMTDNegativeNormalNEGATIVESt. John Of God HospitalComment on above: Performed By: #### DRUGRPD #### [facility] [address] [address] [address] Dacia AckermanOPINegativeNormalNEGATIVESt. [facility] Of [facility] HospitalComholland hospital on above: Performed By: #### DRUGRPD #### [facility] [address] [address] [address] Dacia AckermanOXYNegativeNormalNEGATIVESt. [facility] Of [facility] HospitalComholland hospital on above: Performed By: #### DRUGRPD #### [facility] [address] [address] [address] Dacia AckermanPCPNegativeNormalNEGATIVESt. [facility] Of [facility] HospitalComholland hospital on above: Performed By: #### DRUGRPD #### [facility] [address] [place] [address] Dr. Dacia AckermanPPXNegativeNormalNEGATIVESt. [facility] Of [facility] HospitalComholland hospital on above: Performed By: #### DRUGRPD #### [facility] [address] [place] [address] Dr. Dacia AckermanTCANegativeNormalNEGATIVESt. [facility] HospitalComholland hospital on above: Performed By: #### DRUGRPD #### [facility] [address] [place] [address] Dr. Dacia AckermanTHCPositiveAbnormalNEGATIVESt. [facility] HospitalComholland hospital on above: Performed By: #### DRUGRPD #### [facility] [address] [place] [address] Dr. Dacia Delgado URINE PROFILEon 16-02-6406Vijjxdpns Ql (U)SMALLAbnormal NEGATIVESt. John Of God HospitalComholland hospital on above:Performed By: #### PREGU, ERUR, UMICRO #### [facility] [address] [place] [address] Dr. Dacia AckermanClarity (U)CLEARNormalCLEARSt. John Of God HospitalComholland hospital on above: Performed By: #### PREGU, ERUR, UMICRO #### [facility] [address] [place], [place] [id number] Dr. Dacia Brice (U)YELLOWNormalYELLOWSt. John Of God HospitalComment on above: Performed By: #### PREGU, ERUR, UMICRO #### [facility] [address] [address] [address] Dacia Kate micrscopic examination will be performed if indicated. NormalThe [facility]-Rittman HospitalComment on above:Performed By: #### PREGU, ERUR, UMICRO #### [facility] [address] [address] [address] Dacia AckermanGlucose Ql (U)NegativeNormalNEGATIVESt. John Of God HospitalComment on above:Performed By: #### PREGU, ERUR, UMICRO #### [facility] [address] [place] [address] Dr. Dacia AckermanHemoglobin Ql (U)NegativeNormalNEGATIVESelect [facility] on above:Performed By: #### PREGU, ERUR, UMICRO #### [facility] [address] [place] [address] Dr. Dacia AckermanKetones Ql (U)>=80AbnormalNEGATIVESt. John Of God HospitalComment on above:Performed By: #### PREGU, ERUR, UMICRO #### [facility] [address] [place] [address] Dr. Dacia AckermanLEUKOCYTESTRACEAbnormalNEGATIVESt. John Of God HospitalComment on above:Performed By: #### PREGU, ERUR, UMICRO #### [facility] [address] [place] [address] Dr. Dacia AckermanNitrite Ql (U)NegativeNormalNEGATIVESt. John Of God HospitalComment on above:Performed By: #### PREGU, ERUR, UMICRO #### [facility] [address] [address] [address] Dacia AckermanpH (U)7.5 [pH]Normal5-9The [facility]-Rittman HospitalComment on above: Performed By: #### PREGU, ERUR, UMICRO #### [facility] [address] [place] [address] Dr. Dacia AckermanProtein (U) [Mass/Vol]100 mg/dLAbnormalNEGATIVE/ TRACEThe [facility] on above:Performed By: #### PREGPAULA Cash, UMICRO #### [facility] [address] [place] [address] Dr. Dacia AckermanSPEC GRAVITY1.464Ktgxfq7.005-<=1.025The [facility] on above:Performed By: #### PREGCASANDRA CashR, UMICRO #### [facility] [address] [place] [address] Dr. Dacia Lyman MICRO INDINDICATEDParkview Health Montpelier HospitalComholland hospital on above: Performed By: #### PREGUCASANDRAR, UMICRO #### [facility] [address] [place] [address] Dr. Dacia Grey Qn (U)1.0 {Kaykay'U}/dLNormal0.2 - 1.0[facility] on above:Performed By: #### PAULA MARTINES, UMICRO #### [facility] [address] [place] [address] Dr. Dacia Camara AND B AGon 33-88-1512KPDYDEOGHMYJQGuernsey Memorial Hospital on above:Result Comment: Negative for Flu A protein angiten. Infection due to Flu A cannot be ruled out. FluA angiten in the sample may be below the detection limit of the test.Performed By: #### INFLUAB #### [facility] [address] [place] [address] Dr. Dacia ArguelloUBNEGHSEE [facility] on above: Result Comment: Negative for Flu B protein antigen. Infection due to Flu B cannot be ruled out. FluB antigen in the sample may be below the detection limit of the test.Performed By: #### INFLUAB #### [facility] [address] [place] [address] Dr. Yilan ChangINFLUENZA A AGNegativeNormalNEGATIVE SEE COMMENTSt. John Of God HospitalComment on above:Performed By: #### INFLUAB #### [facility] [address] [address] [address] Dacia Wong B AGNegativeNormalNEGATIVE SEE COMMENTSt. John Of God HospitalComment on above:Performed By: #### INFLUAB #### [facility] [address] [address] [address] Dacia ChowdhuryGNANCY URon 99-70-8284NYOHBHWTF, QUALNegativeNormalNEGATIVEThe [facility]ittman HospitalComment on above:Performed By: #### PREGU, ERUR, UMICRO #### [facility] [address] [place] [address] Dr. Dacia Hernandez MICROSCOPIC ONLYon 53-52-6917DVFJRRDGZSGXSALSAgisjbjgAVXF SEENThe [facility]ittman HospitalComment on above:Performed By: #### PREGU, ERUR, UMICRO #### [facility] [address] [place] [address] Dr. Dacia De Los Santos identified Cx Nom (U)INDICATEDParkview Health Montpelier HospitalComholland hospital on above:Performed By: #### PREGU, ERUR, UMICRO #### [facility] [address] [place] [address] Dr. Dacia AckermanCASTREX SEENNormalNONE SEENSt. John Of God HospitalComholland hospital on above:Performed By: #### PREGU, ERUR, UMICRO #### [facility] [address] [address] [address] Dacia Poole LM Nom (Urine sed)NONE SEENNormalNONE SEENSt. John Of God HospitalComment on above:Performed By: #### PREGU, ERUR, UMICRO #### [facility] [address] [place] [address] Dr. Pederson ChangEkierrathelial cells LM Ql (Urine sed)MANYAbnormalNONE SEEN /RAREThe [facility]ittman HospitalComment on above:Performed By: #### PREGU, ERUR, UMICRO #### [facility] [address] [place], [place] [address] Dr. Dacia AckermanMUCOUSSMALLAbnormalNONE SEENSt. John Of God HospitalComment on above:Performed By: #### PAULA MARTINES UMICRO #### [facility] [address] [place], [place] [address] Dr. Dacia AckermanRBCNONE SEENAbnormal0-2The [facility]ittman HospitalComment on above: Performed By: #### PAULA MARTINES UMICRO #### [facility] [address] [place], [place] [address] Dr. Pederson ChangWBC5-10AbnormalNONE SEENThe [facility]ittman HospitalComment on above: Performed By: #### PAULA MARTINES UMICЕЛЕНА #### [facility] [address] [place], [place] [address] Dr. Dacia AckermanXR CHEST 1 Von 26-23-2079LY CHEST 1 VEXAM: XR CHEST 1 V [...] Electronically authenticated by: KIA ARVIZU Date: 2023-01-01 13:00[facility] Montpelier HospitalAutomated erythrocytes count in urine sediment (number/area) Ordered By: Federico Randolph on 59-50-6926AEQ Auto (Urine sed) [#/Area]0-1 [HPF] 0-4FPaulding County HospitalAutomated leukocytes count in urine sediment (number/area)Ordered By: Federico Randolph on 05-18-5031ONA Auto (Urine sed) [#/Area]20-49 [HPF]0-4FPaulding County HospitalBacteria identified Cx Nom (U)Ordered By: Federico Randolph on 00-19-5902Awzuo culture routine Staphylococcus epidermidisTrihealthBilirubin Test strip Ql (U)Ordered By: Federico Randolph on 86-12-4859Egvnyxkxn Ql (U)NegativeNegative TrihealthCOVID-19 SOFIAOrdered By: Federico Randolph on 55-14-0970PAFO-CoV+SARS-CoV-2 (COVID-19) Ag IA.rapid Ql (Resp)NegativeNegative TrihealthCasts typing in urine sediment by light microscopyOrdered By: Federico Randolph on 65-02-4927Fredl LM Nom (Urine sed)None seen [LPF]None SeenTrihealthColor Auto (U)Ordered By: Federico Randolph on 29-08-4258Eqvad (U)YellowYellowTrihealthHCG ( test) IA.rapid Ql (U)Ordered By: Federico Randolph on 47-45-7684BKO ( test) Ql (U)NegativeTrihealth Influenza virus A and B antigen detection by immunoassayOrdered By: Federico Randolph on 46-92-1795HIBLH+FLUBV Ag IA Ql (Unsp spec)TrihealthKetones Auto test strip (U) [Mass/Vol]Ordered By: Federico Randolph on 08-98-2214Wdrxsrf (U) [Mass/Vol]3+NegativeTrihealth Nitrite Test strip Ql (U)Ordered By: Federico Randolph on 11-82-5563Hbzlkwd Ql (U)NegativeNegSelect Medical Cleveland Clinic Rehabilitation Hospital, AvonNo Panel InformationOrdered By: Federico Randolph on 56-68-8044Trja seen [LPF]0-8TrihealthProtein Auto test strip (U) [Mass/Vol]Ordered By: Federico Randolph on 72-16-7328Vtxjzaa (U) [Mass/Vol]100 mg/dLNegFisher-Titus Medical Centerpecific gravity Auto test strip (U) [Rel density]Ordered By: Federico Randolph on 98-24-3106Qacyooxk gravity (U) [Rel density]1.0261.001-1.030 [facility]itan Hospitalquamous epithelial cells detection in urine sediment by light microscopyOrdered By: Federico Randolph on 11-15-1050Liwzzzmspb cells.squamous LM Ql (Urine sed)Innumerable [HPF]0-2FPaulding County HospitalUrine bacteria detection by automated methodOrdered By: Federico Randolph on 50-05-3387Hljvhqgp Auto Ql (U)3+None SeenTrihealth Urine clarity by refractometry automatedOrdered By: Federico Randolph on 40-82-5616Esqnmva Refractometry automated (U)TurbidCleSelect Medical Specialty Hospital - Boardman, IncUrine glucose measurement by automated test strip (mass/volume) Ordered By: Federico Randolph on 91-61-3918Mzifrzo Auto test strip (U) [Mass/Vol] Normal mg/dLNormSelect Medical Specialty Hospital - CincinnatiUrine hemoglobin detection by automated test stripOrdered By: Federico Randolph on 48-79-4632Nlsqnrvwdh Auto test strip Ql (U)NegativeNegSelect Medical Cleveland Clinic Rehabilitation Hospital, AvonUrine leukocyte esterase detection by automated test stripOrdered By: Federico Randolph on 53-50-7461Jyegqlbfs esterase Auto test strip Ql (U)2+NegativeTrihealthUrobilinogen Auto test strip (U) [Mass/Vol]Ordered By: Federico Randolph on 39-21-2308Ykzzvjfrgjsy (U) [Mass/Vol]Normal mg/dLNoOhioHealth Mansfield HospitalpH Auto test strip (U)Ordered By: Federico Randolph on 62-25-6316aU (U)[pH]5.0-9.0[facility] Amphetamine Screen Ql (U)Ordered By: Corey Newberry on 21-88-3213Weccbnizenrb Ql (U)NegativeNegativeTrihealthBarbiturates [Presence] in UrineOrdered By: Corey Newberry on 84-37-2809Gnspvgdgtemr Ql (U)NegativeNegative TrihealthBasophils Auto (Bld) [#/Vol]Ordered By: Corey Newberry on 15-98-2652Tkdvnthmg (Bld) [#/Vol]0.0 10*3/uL0.0-0.1FPaulding County HospitalBasophils/100 WBC Auto (Bld)Ordered By: Corey Newberry on 04-07-3013Sbcorwunl/100 WBC (Bld)0.3 %.[facility] Benzodiazepines [Presence] in UrineOrdered By: Corey Newberry on 11-09-2022 Benzodiazepines Ql (U)NegativeNegativeTrihealthBilirubin Test strip Ql (U)Ordered By: Corey Newberry on 00-71-1413Eblgcrxly Ql (U) NegativeNegSelect Medical Cleveland Clinic Rehabilitation Hospital, AvonBody fluid albumin measurement (mass/volume)Ordered By: Corey Newberry on 94-28-8880Xpyvibi (Body fld) [Mass/Vol]4.2 g/dL3.2-5.5FPaulding County HospitalCannabinoids [Presence] in Urine by Screen methodOrdered By: Corey Newberry on 11-09-2022 Cannabinoids Screen Ql (U)PositiveNegativeTrihealthColor Auto (U)Ordered By: Corey Newberry on 35-08-0061Swehg (U)YellowYellowTrihealthEosinophils Auto (Bld) [#/Vol]Ordered By: Corey Newberry on 59-98-5978Vjrjidfxgxv (Bld) [#/Vol]0.1 10*3/uL0.0-0.7FPaulding County HospitalEosinophils/100 WBC Auto (Bld)Ordered By: Corey Newberry on 43-12-5493Fryqdupgwou/100 WBC (Bld)0.8 %.[facility] Erythrocyte distribution width Auto (RBC) [Ratio]Ordered By: Corey Newberry on 98-01-0869Tupgkscsdmf distribution width (RBC) [Ratio]13.8 %11.9-15.3FPaulding County HospitalEstimated glomerular filtration rate (GFR) non- AmericanOrdered By: Corey Newberry on 27-19-5023RQN/1.73 sq M.predicted among non-blacks MDRD (S/P/Bld) [Vol rate/Area]> 60 mL/MinTrihealthGlobulin Calc (S) [Mass/Vol]Ordered By: Corey Newberry on 11-09-2022 Globulin (S) [Mass/Vol]2.4 g/dLTrihealthHCG ( test) IA.rapid Ql (U)Ordered By: Corey Newberry on 82-99-2583MIX ( test) Ql (U)NegativeTrihealthHematocrit Auto (Bld) [Volume fraction]Ordered By: Corey Newberry on 50-34-6391Okwnzeyxxs (Bld) [Volume fraction]41.0 %36.0-46.0TrihealthHemoglobin [Mass/volume] in BloodOrdered By: Corey Newberry on 23-96-3119Zzuvewffik (Bld) [Mass/Vol]13.4 g/dL12.0-16.0TrihealthKetones Auto test strip (U) [Mass/Vol]Ordered By: Corey Newberry on 30-63-2272Xmcmewa (U) [Mass/Vol]NegativeNegativeTrihealthLeukocytes [#/volume] corrected for nucleated erythrocytes in Blood by Automated counOrdered By: Corey Newberry on 72-50-1989IKC corrected for nucl RBC Auto (Bld) [#/Vol]11.7 10*3/uL4.5-13.5FPaulding County HospitalLymphocytes Auto (Bld) [#/Vol] Ordered By: Corey Newberry on 94-53-6100Nbtphqnhjso (Bld) [#/Vol]1.4 10*3/uL 1.20-4.8TrihealthLymphocytes/100 WBC Auto (Bld)Ordered By: Corey Newberry on 18-73-0276Woputwpgxnd/100 WBC (Bld)12.1 %.[facility] Auto (RBC) [Entitic mass]Ordered By: Corey Newberry on 64-28-0489YOO (RBC) [Entitic mass]28.1 pg25.0-35.0TrihealthMCHC Auto (RBC) [Mass/Vol]Ordered By: Corey Newberry on 64-40-0610KCMW (RBC) [Mass/Vol]32.8 g/dL31.0-37.0TrihealthMCV Auto (RBC) [Entitic vol]Ordered By: Corey Newberry on 68-54-8648WNV (RBC) [Entitic vol]85.7 lM17-092CnptngrgrTrihealthMonocyte distribution width [Entitic volume] in Blood by AutomatedOrdered By: Corey Newberry on 11-09-2022 Monocyte distribution width Auto (Bld) [Entitic vol]16.08 %0.00-20.00TrihealthMonocytes Auto (Bld) [#/Vol]Ordered By: Corey Newberry on 91-98-3074Dkhwabufo (Bld) [#/Vol]0.5 10*3/uL0.1-1.00TrihealthMonocytes/100 WBC Auto (Bld)Ordered By: Corey Newberry on 11-09-2022 Monocytes/100 WBC (Bld)4.7 %.TrihealthNeutrophils Auto (Bld) [#/Vol]Ordered By: Corey Newberry on 05-29-6475Zewssitvcyt (Bld) [#/Vol] 9.6 10*3/uL1.2-7.7FPaulding County HospitalNeutrophils/100 WBC Auto (Bld)Ordered By: Corey Newberry on 51-36-3044Fnnoqhhvqtl/100 WBC (Bld)82.1 %. TrihealthNitrite Test strip Ql (U)Ordered By: Corey Newberry on 45-14-8014Hjinhdy Ql (U)NegativeNegativeTrihealthNo Panel InformationOrdered By: Corey Newberry on 69-24-6474Kikmryiq NegativeTrihealth> 60 mL/MinTrihealth118.86TrihealthNucleated erythrocytes [Presence] in Blood by Automated countOrdered By: Corey Newberry on 95-36-6525Bskhwnnzq RBC Auto Ql (Bld)0.1 /100{WBC}0-0.5FPaulding County HospitalPhencyclidine Screen Ql (U)Ordered By: Corey Newberry on 18-30-3199Xywewitjctuqw Ql (U) NegativeNegSelect Medical Cleveland Clinic Rehabilitation Hospital, AvonPlatelet mean volume Auto (Bld) [Entitic vol]Ordered By: Corey Newberry on 85-59-4341Ifrdebwg mean volume (Bld) [Entitic vol]8.5 fL6.3-10.7FPaulding County HospitalPlatelets Auto (Bld) [#/Vol]Ordered By: Corey Newberry on 78-69-5260Pesmnmdcq (Bld) [#/Vol]274 10*3/gO276-175HdisjbfdsTrihealthProtein Auto test strip (U) [Mass/Vol]Ordered By: Corey Newberry on 21-35-8578Glrvfvm (U) [Mass/Vol]Negative NegativeTrihealthProtein [Mass/volume] in Serum or PlasmaOrdered By: Corey Newberry on 86-04-3103Vzaxgwc [Mass/Vol]6.6 g/dL6.1-7.9 TrihealthRBC Auto (Bld) [#/Vol]Ordered By: Corey Newberry on 07-93-5870TEK (Bld) [#/Vol]4.78 10*6/uL4.10-5.10Samaritan Hospitalerum or plasma alanine aminotransferase measurement without P-5'-P (enzymatic activiOrdered By: Corey Newberry on 08-76-3828ODI No additional P-5'-P [Catalytic activity/Vol]67 U/J07-24YvbrwvfdzSamaritan Hospitalerum or plasma albumin/globulin mass ratioOrdered By: Corey Newberry on 53-25-7705Ehhenit/Globulin [Mass ratio]1.8 {ratio}[facility]itan Hospitalerum or plasma alkaline phosphatase measurement (enzymatic activity/volume)Ordered By: Corey Newberry on 73-22-6883YEX [Catalytic activity/Vol]59 U/L96-91TrnkddkqtSamaritan Hospitalerum or plasma anion gap determinationOrdered By: Corey Newberry on 27-91-8309Zhqyv gap [Moles/Vol] 19.7 mmol/L6.0-15.0[facility]itan Hospitalerum or plasma aspartate aminotransferase measurement (enzymatic activity/volume)Ordered By: Corey Newberry on 20-66-0268RZI [Catalytic activity/Vol]48 U/B09-50CbvrocsgySamaritan Hospitalerum or plasma calcium measurement (mass/volume)Ordered By: Corey Newberry on 59-77-8015Znxyyvp [Mass/Vol]9.6 mg/dL8.2-10.2FSumma Health Wadsworth - Rittman Medical Centererum or plasma chloride measurement (moles/volume) Ordered By: Corey Newberry on 25-42-2025Vnlzxdzl [Moles/Vol]98 mmol/L95-114 [facility]itan Hospitalerum or plasma creatinine measurement with calculation of estimated glomerular filtrOrdered By: Corey Newberry on 72-59-0308Rvbpfkzhww and Glomerular filtration rate.predicted panel (S/P/Bld) 0.76 mg/dL0.44-1.03[facility]itan Hospitalerum or plasma glucose measurement (mass/volume)Ordered By: Corey Newberry on 07-10-0610Lclreao [Mass/Vol]110 mg/aV62-040SjxmthxvbSamaritan Hospitalerum or plasma potassium measurement (moles/volume)Ordered By: Corey Newberry on 11-09-2022 Potassium [Moles/Vol]3.4 mmol/L3.5-5.1FSumma Health Wadsworth - Rittman Medical Centererum or plasma sodium measurement (moles/volume)Ordered By: Corey Newberry on 11-09-2022 Sodium [Moles/Vol]137 mmol/D631-941FkcrebmgxSamaritan Hospitalerum or plasma total bilirubin measurement (mass/volume)Ordered By: Corey Newberry on 68-78-8443Gxlzxdevg [Mass/Vol]0.5 mg/dL0.3-1.2FPaulding County Hospital Serum or plasma total carbon dioxide measurement (moles/volume)Ordered By: Corey Newberry on 63-70-9333ML2 [Moles/Vol]22.7 mmol/L22.0-30.0[facility]itan Hospitalerum or plasma urea nitrogen measurement (mass/volume) Ordered By: Corey Newberry on 76-28-2537Gmup nitrogen [Mass/Vol]3 mg/dL9-23 [facility]itan Hospitalpecific gravity Auto test strip (U) [Rel density]Ordered By: Corey Newberry on 56-26-7330Pisflxpw gravity (U) [Rel density]1.0091.001-1.030TrihealthUrine clarity by refractometry automatedOrdered By: Corey Newberry on 06-21-8304Ujrrpwo Refractometry automated (U)ClearCleSelect Medical Specialty Hospital - Boardman, IncUrine cocaine detectionOrdered By: Corey Newberry on 78-79-4273Lajhjyt Ql (U)Negative NegativeTrihealthUrine glucose measurement by automated test strip (mass/volume)Ordered By: Corey Newberry on 92-66-9498Mnjfirw Auto test strip (U) [Mass/Vol]Normal mg/dLNormalTrihealth Urine hemoglobin detection by automated test stripOrdered By: Corey Newberry on 30-76-2290Aeqythwngd Auto test strip Ql (U)NegativeNegativeTrihealthUrine leukocyte esterase detection by automated test stripOrdered By: Corey Newberry on 32-07-8437Ykaqgzgdo esterase Auto test strip Ql (U) NegativeNegativeTrihealthUrobilinogen Auto test strip (U) [Mass/Vol]Ordered By: Corey Newberry on 13-91-8123Tcljiekrndxa (U) [Mass/Vol]Normal mg/dLNormalTrihealthWBC Auto (Bld) [#/Vol]Ordered By: Corey Newberry on 61-77-3475DRZ (Bld) [#/Vol]11.7 10*3/uL 4.5-13.5FPaulding County HospitalpH Auto test strip (U)Ordered By: Corey Newberry on 86-19-0268zR (U)[pH]5.0-9.0[facility] Albumin [Mass/volume] in Serum or PlasmaOrdered By: Art Bianchi on 11-07-2022 Albumin [Mass/Vol]4.6 g/dL3.2-5.5FPaulding County HospitalAutomated erythrocytes count in urine sediment (number/area)Ordered By: Art Bianchi on 14-63-8779OJR Auto (Urine sed) [#/Area]0-1 [HPF]0-4FPaulding County HospitalAutomated leukocytes count in urine sediment (number/area)Ordered By: Art Bianchi on 56-17-3912FRN Auto (Urine sed) [#/Area]3-4 [HPF]0-4FPaulding County HospitalBasophils Auto (Bld) [#/Vol]Ordered By: Art Bianchi on 28-35-7283Obhtgpzar (Bld) [#/Vol]0.1 10*3/uL0.0-0.1FPaulding County HospitalBasophils/100 WBC Auto (Bld)Ordered By: Art Bianchi on 11-07-2022 Basophils/100 WBC (Bld)1.0 %.TrihealthBilirubin Test strip Ql (U)Ordered By: Art Bianchi on 26-45-6442Zqsqeczkg Ql (U)Negative NegativeTrihealthColor Auto (U)Ordered By: Art Bianchi on 42-58-2662Vbpvw (U)YellowYellowTrihealthEosinophils Auto (Bld) [#/Vol]Ordered By: Art Bianchi on 50-12-1862Tjtbsvysxxa (Bld) [#/Vol] 0.1 10*3/uL0.0-0.7FPaulding County HospitalEosinophils/100 WBC Auto (Bld)Ordered By: Art Bianchi on 12-63-2003Bzrpdstpqdu/100 WBC (Bld)1.2 %. TrihealthErythrocyte distribution width Auto (RBC) [Ratio]Ordered By: Art Bianchi on 56-85-1781Zdfwoedfdyv distribution width (RBC) [Ratio]14.0 %11.9-15.3FPaulding County HospitalEstimated glomerular filtration rate (GFR) non- AmericanOrdered By: Art Bianchi on 11-07-2022 GFR/1.73 sq M.predicted among non-blacks MDRD (S/P/Bld) [Vol rate/Area]> 60 mL/MinTrihealthGlobulin Calc (S) [Mass/Vol]Ordered By: Art Bianchi on 77-48-2077Xkiqcase (S) [Mass/Vol]2.7 g/dLTrihealthHCG ( test) IA.rapid Ql (U)Ordered By: Art Bianchi on 25-09-1467AQU ( test) Ql (U)NegativeTrihealth Hematocrit Auto (Bld) [Volume fraction]Ordered By: Art Bianchi on 11-07-2022 Hematocrit (Bld) [Volume fraction]43.2 %36.0-46.0TrihealthHemoglobin [Mass/volume] in BloodOrdered By: Art Bianchi on 11-07-2022 Hemoglobin (Bld) [Mass/Vol]14.8 g/dL12.0-16.0[facility] Ketones Auto test strip (U) [Mass/Vol]Ordered By: Art Bianchi on 11-07-2022 Ketones (U) [Mass/Vol]1+NegativeTrihealthLeukocytes [#/volume] corrected for nucleated erythrocytes in Blood by Automated coun Ordered By: Art Bianchi on 05-98-6058BPD corrected for nucl RBC Auto (Bld) [#/Vol]10.3 10*3/uL4.5-13.5FPaulding County HospitalLymphocytes Auto (Bld) [#/Vol]Ordered By: Art Bianchi on 66-21-7434Icrgiodbggf (Bld) [#/Vol]2.1 10*3/uL1.20-4.8TrihealthLymphocytes/100 WBC Auto (Bld) Ordered By: Art Bianchi on 61-72-8446Urzkbaxkxpp/100 WBC (Bld)20.8 %.[facility] Auto (RBC) [Entitic mass]Ordered By: Art Bianchi on 33-70-9637JSP (RBC) [Entitic mass]28.8 pg25.0-35.0TrihealthMCHC Auto (RBC) [Mass/Vol]Ordered By: Art Bianchi on 85-63-5685UCKP (RBC) [Mass/Vol]34.3 g/dL31.0-37.0TrihealthMCV Auto (RBC) [Entitic vol]Ordered By: Art Bianchi on 85-69-2560LYM (RBC) [Entitic vol]84.1 fL 78-102TrihealthMonocyte distribution width [Entitic volume] in Blood by AutomatedOrdered By: Art Bianchi on 39-76-0432Xqxatoqh distribution width Auto (Bld) [Entitic vol]17.07 %0.00-20.00TrihealthMonocytes Auto (Bld) [#/Vol]Ordered By: Art Bianchi on 11-07-2022 Monocytes (Bld) [#/Vol]0.8 10*3/uL0.1-1.00[facility] Monocytes/100 WBC Auto (Bld)Ordered By: Art Bianchi on 56-31-4115Nmqbvvwyk/100 WBC (Bld)8.1 %.TrihealthNeutrophils Auto (Bld) [#/Vol] Ordered By: Art Bianchi on 33-35-5095Hiuoqvfzdhk (Bld) [#/Vol]7.1 10*3/uL1.2-7.7 TrihealthNeutrophils/100 WBC Auto (Bld)Ordered By: Art Bianchi on 81-46-8082Eryuticsrmj/100 WBC (Bld)68.9 %.TrihealthNitrite Test strip Ql (U)Ordered By: Art Bianchi on 73-07-9406Mdgliwm Ql (U)NegativeNegativeTrihealthNo Panel InformationOrdered By: Art Bianchi on 14-74-45047-8 [LPF]0-8[facility]> 60 mL/MinTrihealth43.0 U/X24-54SmkhcdlrmTrihealth104.35TrihealthNucleated erythrocytes [Presence] in Blood by Automated countOrdered By: Art Bianchi on 28-74-1386Eegcntyli RBC Auto Ql (Bld)0.3 /100{WBC}0-0.5FPaulding County HospitalPlatelet mean volume Auto (Bld) [Entitic vol]Ordered By: Art Bianchi on 50-25-5007Sfgmgwch mean volume (Bld) [Entitic vol]8.4 fL6.3-10.7FPaulding County Hospital Platelets Auto (Bld) [#/Vol]Ordered By: Art Bianchi on 96-09-2030Oleccgdil (Bld) [#/Vol]308 10*3/tI933-099JmdjprisqTrihealthProtein Auto test strip (U) [Mass/Vol]Ordered By: Art Bianchi on 85-09-4242Xazscww (U) [Mass/Vol] Trace mg/dLNegSelect Medical Cleveland Clinic Rehabilitation Hospital, AvonProtein [Mass/volume] in Serum or PlasmaOrdered By: Art Bianchi on 78-18-6406Cpvsfrh [Mass/Vol]7.3 g/dL 6.1-7.9TrihealthRBC Auto (Bld) [#/Vol]Ordered By: Art Bianchi on 34-23-8556HIV (Bld) [#/Vol]5.14 10*6/uL4.10-5.10[facility]aritan Hospitalerum or plasma alanine aminotransferase measurement without P-5'-P (enzymatic activiOrdered By: Art Bianchi on 22-45-1665CPK No additional P-5'-P [Catalytic activity/Vol]24 U/R50-83WuhnwvcicSamaritan Hospitalerum or plasma albumin/globulin mass ratioOrdered By: Art Bianchi on 11-07-2022 Albumin/Globulin [Mass ratio]1.7 {ratio}[facility] Hospitalerum or plasma alkaline phosphatase measurement (enzymatic activity/volume)Ordered By: Art Bianchi on 98-82-1732MSM [Catalytic activity/Vol]60 U/V25-92NvkktufyfSamaritan Hospitalerum or plasma anion gap determinationOrdered By: Art Bianchi on 20-63-0947Hcyly gap [Moles/Vol]12.2 mmol/L6.0-15.0[facility] Hospitalerum or plasma aspartate aminotransferase measurement (enzymatic activity/volume)Ordered By: Art Bianchi on 18-59-0016RGN [Catalytic activity/Vol]25 U/M56-50OgawnnrgaSamaritan Hospitalerum or plasma calcium measurement (mass/volume)Ordered By: Art Bianchi on 00-77-4576Emoamvr [Mass/Vol] 9.6 mg/dL8.2-10.2FSumma Health Wadsworth - Rittman Medical Centererum or plasma chloride measurement (moles/volume)Ordered By: Art Bianchi on 17-39-0048Kfdzuchl [Moles/Vol]98 mmol/K72-440XefnuxymoSamaritan Hospitalerum or plasma creatinine measurement with calculation of estimated glomerular filtrOrdered By: Art Bianchi on 46-15-1117Rudcesefmh and Glomerular filtration rate.predicted panel (S/P/Bld)0.84 mg/dL0.44-1.03[facility] Hospitalerum or plasma glucose measurement (mass/volume)Ordered By: Art Bianchi on 11-07-2022 Glucose [Mass/Vol]106 mg/vC93-244CiclzvfeySamaritan Hospitalerum or plasma potassium measurement (moles/volume)Ordered By: Art Bianchi on 11-07-2022 Potassium [Moles/Vol]3.2 mmol/L3.5-5.1FSumma Health Wadsworth - Rittman Medical Centererum or plasma sodium measurement (moles/volume)Ordered By: Art Bianchi on 11-07-2022 Sodium [Moles/Vol]132 mmol/W562-937BpcyajwmfSamaritan Hospitalerum or plasma total bilirubin measurement (mass/volume)Ordered By: Art Bianchi 06-51-8939Vtjnlzmbv [Mass/Vol]0.8 mg/dL0.3-1.2FPaulding County Hospital Serum or plasma total carbon dioxide measurement (moles/volume)Ordered By: Art Bianchi on 32-98-1984IC3 [Moles/Vol]25.0 mmol/L22.0-30.0[facility] Hospitalerum or plasma urea nitrogen measurement (mass/volume)Ordered By: Art Bianchi on 85-55-7829Wgql nitrogen [Mass/Vol]6 mg/dL9-23Sam[facility]itan Hospitalpecific gravity Auto test strip (U) [Rel density]Ordered By: Art Bianchi on 23-76-7292Jipublpn gravity (U) [Rel density]1.0141.001-1.030 [facility] Hospitalquamous epithelial cells detection in urine sediment by light microscopyOrdered By: Art Bianchi on 81-75-5583Ameeoavxfl cells.squamous LM Ql (Urine sed)5-9 [HPF]0-2FPaulding County Hospital Urine bacteria detection by automated methodOrdered By: Art Bianchi on 31-73-6851Xmhzlznv Auto Ql (U)None seenNone SeenTrihealthUrine clarity by refractometry automatedOrdered By: Art Bianchi on 96-00-3968Qsihjzh Refractometry automated (U)ClearCleSelect Medical Specialty Hospital - Boardman, IncUrine glucose measurement by automated test strip (mass/volume) Ordered By: Art Bianchi on 77-76-2834Sgnkdqa Auto test strip (U) [Mass/Vol] Normal mg/dLNormalTrihealthUrine hemoglobin detection by automated test stripOrdered By: Art Bianchi on 82-32-3369Mfkncgbcxj Auto test strip Ql (U)NegativeNegSelect Medical Cleveland Clinic Rehabilitation Hospital, AvonUrine leukocyte esterase detection by automated test stripOrdered By: Art Bianchi on 11-07-2022 Leukocyte esterase Auto test strip Ql (U)NegativeNegSelect Medical Cleveland Clinic Rehabilitation Hospital, AvonUrobilinogen Auto test strip (U) [Mass/Vol]Ordered By: Art Bianchi on 59-92-4436Dghfmpbywgur (U) [Mass/Vol]Normal mg/dLNormalTrihealthWBC Auto (Bld) [#/Vol]Ordered By: Art Bianchi on 78-58-1042TRK (Bld) [#/Vol]10.3 10*3/uL4.5-13.5FPaulding County HospitalpH Auto test strip (U)Ordered By: Art Bianchi on 17-49-4417rU (U)8.5 [pH]5.0-9.0TrihealthUrine culture routineOrdered By: Colten Fry on 24-51-0448Vldnxzzk identified Cx Nom (U)2 DaysTrihealth Albumin [Mass/volume] in Serum or PlasmaOrdered By: Colten Fry on 11-02-2022 Albumin [Mass/Vol]4.8 g/dL3.2-5.5FPaulding County HospitalAmphetamine Screen Ql (U)Ordered By: Colten Fry on 24-66-8158Xlnxrkfdhrnl Ql (U)Negative NegativeTrihealthAutomated erythrocytes count in urine sediment (number/area)Ordered By: Colten Fry on 92-51-6747PTA Auto (Urine sed) [#/Area]20-49 [HPF]0-4FPaulding County HospitalAutomated leukocytes count in urine sediment (number/area)Ordered By: Colten Fry on 60-09-8747CHE Auto (Urine sed) [#/Area]5-9 [HPF]0-4FPaulding County Hospital Barbiturates [Presence] in UrineOrdered By: Colten Fry on 11-02-2022 Barbiturates Ql (U)NegativeNegativeTrihealthBasophils Auto (Bld) [#/Vol]Ordered By: Colten Fry on 63-70-0757Tmgtkxguz (Bld) [#/Vol] 0.1 10*3/uL0.0-0.1FPaulding County HospitalBasophils/100 WBC Auto (Bld) Ordered By: Colten Fry on 83-20-2755Ekdhczzbw/100 WBC (Bld)0.5 %.TrihealthBenzodiazepines [Presence] in UrineOrdered By: Colten Fry on 23-34-4491Bmbaodmjgkyrlcw Ql (U)NegativeNegativeTrihealthBilirubin Test strip Ql (U)Ordered By: Colten Fry on 11-02-2022 Bilirubin Ql (U)NegativeNegSelect Medical Cleveland Clinic Rehabilitation Hospital, AvonCannabinoids [Presence] in Urine by Screen methodOrdered By: Colten Fry on 11-02-2022 Cannabinoids Screen Ql (U)PositiveNegativeTrihealthColor Auto (U)Ordered By: Colten Fry on 13-09-9187Vvoti (U)YellowYellowTrihealthEosinophils Auto (Bld) [#/Vol]Ordered By: Colten Fry on 76-96-8109Hyssahyxyfg (Bld) [#/Vol]0.3 10*3/uL0.0-0.7FPaulding County HospitalEosinophils/100 WBC Auto (Bld)Ordered By: Colten Fry on 69-91-8189Cszglzbpelh/100 WBC (Bld)2.1 %.[facility] Erythrocyte distribution width Auto (RBC) [Ratio]Ordered By: Colten Fry on 85-14-2530Hkhrzyoyiol distribution width (RBC) [Ratio]13.7 %11.9-15.3FPaulding County HospitalEstimated glomerular filtration rate (GFR) non- AmericanOrdered By: Colten Fry on 46-62-6787QQO/1.73 sq M.predicted among non-blacks MDRD (S/P/Bld) [Vol rate/Area]> 60 mL/MinTrihealthGlobulin Calc (S) [Mass/Vol]Ordered By: Colten Fry on 11-02-2022 Globulin (S) [Mass/Vol]3.1 g/dLTrihealthHCG ( test) IA.rapid Ql (U)Ordered By: Colten Fry on 88-03-9020KJN ( test) Ql (U)NegativeTrihealthHematocrit Auto (Bld) [Volume fraction]Ordered By: Colten Fry on 27-41-4278Umddwtmnlh (Bld) [Volume fraction]45.3 %36.0-46.0TrihealthHemoglobin [Mass/volume] in BloodOrdered By: Colten Fry on 28-99-7789Xisqpfhrto (Bld) [Mass/Vol]15.4 g/dL12.0-16.0TrihealthKetones Auto test strip (U) [Mass/Vol]Ordered By: Colten Fry on 04-31-5819Eriulpy (U) [Mass/Vol]3+NegativeTrihealthLeukocytes [#/volume] corrected for nucleated erythrocytes in Blood by Automated counOrdered By: Colten Fry on 54-20-0886RJJ corrected for nucl RBC Auto (Bld) [#/Vol]11.7 10*3/uL4.5-13.5FPaulding County HospitalLymphocytes Auto (Bld) [#/Vol] Ordered By: Colten Fry on 20-04-3269Zwcyqeiqxvg (Bld) [#/Vol]2.3 10*3/uL 1.20-4.8TrihealthLymphocytes/100 WBC Auto (Bld)Ordered By: Colten Fry on 84-03-4387Ignkcmodory/100 WBC (Bld)19.6 %.[facility] Auto (RBC) [Entitic mass]Ordered By: Colten Fry on 28-54-7580QQN (RBC) [Entitic mass]28.4 pg25.0-35.0TrihealthMCHC Auto (RBC) [Mass/Vol]Ordered By: Colten Fry on 68-50-1195YRZP (RBC) [Mass/Vol]34.0 g/dL31.0-37.0TrihealthMCV Auto (RBC) [Entitic vol]Ordered By: Colten Fry on 15-69-4590SUW (RBC) [Entitic vol]83.3 oC89-512GhhtajgsiTrihealthMonocytes Auto (Bld) [#/Vol] Ordered By: Colten Fry on 38-42-4650Anqqrcwog (Bld) [#/Vol]1.0 10*3/uL 0.1-1.00TrihealthMonocytes/100 WBC Auto (Bld)Ordered By: Colten Fry on 36-81-4203Pogbadbqn/100 WBC (Bld)8.5 %.TrihealthNeutrophils Auto (Bld) [#/Vol]Ordered By: Colten Fry on 09-57-6977Vmgtjfudoxm (Bld) [#/Vol]8.1 10*3/uL1.2-7.7FPaulding County HospitalNeutrophils/100 WBC Auto (Bld)Ordered By: Colten Fry on 11-02-2022 Neutrophils/100 WBC (Bld)69.3 %.TrihealthNitrite Test strip Ql (U)Ordered By: Colten Fry on 77-66-4706Afdubzb Ql (U)Negative NegativeTrihealthNo Panel InformationOrdered By: Colten Fry on -19 [LPF]0-8TrihealthNegative [facility]> 60 mL/MinTrihealth100.26TrihealthNo Panel InformationOrdered By: Robert Bolanos on .6 mg/dL1.6-2.6FPaulding County Hospital Nucleated erythrocytes [Presence] in Blood by Automated countOrdered By: Colten Fry on 65-40-4203Mfmxuzabg RBC Auto Ql (Bld)0.1 /100{WBC}0-0.5FPaulding County HospitalPhencyclidine Screen Ql (U)Ordered By: Colten Fry on 11-93-2144Iemackawytqvz Ql (U)NegativeNegSelect Medical [facility], [place] Platelet mean volume Auto (Bld) [Entitic vol]Ordered By: Colten Fry on 05-09-0051Pxhnxtgg mean volume (Bld) [Entitic vol]7.9 fL6.3-10.7FPaulding County HospitalPlatelets Auto (Bld) [#/Vol]Ordered By: Colten Fry on 53-48-1092Cgnlhfgeg (Bld) [#/Vol]292 10*3/rT239-256QcjvrmyvfTrihealthProtein Auto test strip (U) [Mass/Vol]Ordered By: Colten Fry on 17-57-4605Tbbyiyx (U) [Mass/Vol]30 mg/dLNegativeTrihealthProtein [Mass/volume] in Serum or PlasmaOrdered By: Colten Fry on 15-64-7841Tmayvts [Mass/Vol]7.9 g/dL6.1-7.9TrihealthRBC Auto (Bld) [#/Vol]Ordered By: Colten Fry on 67-44-5366PBK (Bld) [#/Vol]5.43 10*6/uL4.10-5.10[facility] Hospitalerum or plasma alanine aminotransferase measurement without P-5'-P (enzymatic activiOrdered By: Colten Fry on 81-77-3385JJD No additional P-5'-P [Catalytic activity/Vol]20 U/L10-60 [facility] Hospitalerum or plasma albumin/globulin mass ratio Ordered By: Colten Fry on 97-34-2417Kuwwjie/Globulin [Mass ratio]1.5 {ratio} [facility] Hospitalerum or plasma alkaline phosphatase measurement (enzymatic activity/volume)Ordered By: Colten Fry on 11-02-2022 ALP [Catalytic activity/Vol]65 U/T13-54LaxofizfcSamaritan Hospitalerum or plasma anion gap determinationOrdered By: Colten Fry on 46-05-2504Jstuk gap [Moles/Vol]14.6 mmol/L6.0-15.0[facility] Hospitalerum or plasma aspartate aminotransferase measurement (enzymatic activity/volume)Ordered By: Colten Fry on 42-01-9617ITN [Catalytic activity/Vol]19 U/C21-81CatrktolbSamaritan Hospitalerum or plasma calcium measurement (mass/volume)Ordered By: Colten Fry on 09-22-9007Mayodud [Mass/Vol]9.6 mg/dL8.2-10.2FSumma Health Wadsworth - Rittman Medical Centererum or plasma chloride measurement (moles/volume) Ordered By: Colten Fry on 75-93-7343Lczakita [Moles/Vol]95 mmol/L95-114 [facility] Hospitalerum or plasma creatinine measurement with calculation of estimated glomerular filtrOrdered By: Colten Fyr on 11-02-2022 Creatinine and Glomerular filtration rate.predicted panel (S/P/Bld)0.88 mg/dL 0.44-1.03[facility] Hospitalerum or plasma glucose measurement (mass/volume)Ordered By: Colten Fry on 37-27-4269Tqvsest [Mass/Vol]95 mg/dL 70-100[facility] Hospitalerum or plasma potassium measurement (moles/volume)Ordered By: Colten Fry on 53-05-8852Yybgclvdj [Moles/Vol]2.9 mmol/L3.5-5.1FSumma Health Wadsworth - Rittman Medical Centererum or plasma sodium measurement (moles/volume)Ordered By: Colten Fry on 89-47-7245Trkhfn [Moles/Vol]134 mmol/M165-382MgtnrizgeSamaritan Hospitalerum or plasma total bilirubin measurement (mass/volume)Ordered By: Colten Fry on 67-78-4873Gtjcqzzcw [Mass/Vol]1.8 mg/dL0.3-1.2FSumma Health Wadsworth - Rittman Medical Centererum or plasma total carbon dioxide measurement (moles/volume)Ordered By: Colten Fry on 16-32-4217FW6 [Moles/Vol]27.3 mmol/L22.0-30.0[facility] Serum or plasma urea nitrogen measurement (mass/volume)Ordered By: Colten Fry on 14-96-9169Fbgp nitrogen [Mass/Vol]24 mg/dL9-23Sam[facility]itan Hospitalpecific gravity Auto test strip (U) [Rel density]Ordered By: Colten Fry on 84-19-1432Yrxrmqwr gravity (U) [Rel density]1.0251.001-1.030[facility]itan Hospitalquamous epithelial cells detection in urine sediment by light microscopyOrdered By: Colten Fry on 37-24-2025Rtxuwvfapq cells.squamous LM Ql (Urine sed)10-19 [HPF]0-[address] [place], [place] [address]Urine bacteria detection by automated methodOrdered By: Colten Fry on 33-37-1488Aggxhvws Auto Ql (U)None seenNone SeenTrihealthUrine clarity by refractometry automatedOrdered By: Colten Fry on 06-32-6782Sqimbwn Refractometry automated (U)CloudyClearFPaulding County HospitalUrine cocaine detectionOrdered By: Colten Fry on 56-28-6888Rhluozj Ql (U)Negative NegativeTrihealthUrine culture routineOrdered By: Colten Fry on 11-07-0395Xmnkhtlb identified Cx Nom (U)2 DaysTrihealthUrine culture routineOrdered By: Art Bianchi on 37-27-4209Jyvdshsc identified Cx Nom (U)2 DaysTrihealthUrine glucose measurement by automated test strip (mass/volume)Ordered By: Colten Fry on 07-65-7113Quuaosr Auto test strip (U) [Mass/Vol]Normal mg/dLNoTrumbull Memorial HospitalUrine hemoglobin detection by automated test stripOrdered By: Colten Fry on 94-19-4128Ugtojpkyvi Auto test strip Ql (U)3+Negative TrihealthUrine leukocyte esterase detection by automated test stripOrdered By: Colten Fry on 71-25-6196Aerjctuqy esterase Auto test strip Ql (U)2+NegativeTrihealthUrobilinogen Auto test strip (U) [Mass/Vol]Ordered By: Colten Fry on 69-78-8161Yfsuqlcabwtb (U) [Mass/Vol]Normal mg/dLNoTrumbull Memorial HospitalWBC Auto (Bld) [#/Vol]Ordered By: Colten Fry on 41-42-9889JKA (Bld) [#/Vol]11.7 10*3/uL 4.5-13.5FPaulding County HospitalpH Auto test strip (U)Ordered By: Colten Fry on 57-58-3480cM (U)7.0 [pH]5.0-9.0TrihealthAlbumin [Mass/volume] in Serum or PlasmaOrdered By: Art Bianchi on 55-23-4132Xsdhyos [Mass/Vol]5.1 g/dL3.2-5.5FPaulding County Hospital Automated erythrocytes count in urine sediment (number/area)Ordered By: Art Bianchi on 86-56-4859XSU Auto (Urine sed) [#/Area]Innumerable [HPF]0-4FPaulding County HospitalAutomated leukocytes count in urine sediment (number/area)Ordered By: Art Bianchi on 36-51-1404RNR Auto (Urine sed) [#/Area] 10-19 [HPF]0-4FPaulding County HospitalBasophils Auto (Bld) [#/Vol] Ordered By: Art Bianchi on 35-75-3537Wjmfgmslz (Bld) [#/Vol]0.0 10*3/uL0.0-0.1 TrihealthBasophils/100 WBC Auto (Bld)Ordered By: Art Bianchi on 96-84-4704Gmtkakwst/100 WBC (Bld)0.3 %.TrihealthBilirubin Test strip Ql (U)Ordered By: Art Bianchi on 86-08-6312Rpablhjar Ql (U)NegativeNegativeTrihealthColor Auto (U)Ordered By: Art Bianchi on 62-52-8346Camua (U)RedYellowTrihealth Eosinophils Auto (Bld) [#/Vol]Ordered By: Art Bianchi on 62-65-1089Raudtehvwki (Bld) [#/Vol]0.1 10*3/uL0.0-0.7FPaulding County HospitalEosinophils/100 WBC Auto (Bld)Ordered By: Art Bianchi on 56-33-3665Dacorfedkbl/100 WBC (Bld)1.0 %.TrihealthErythrocyte distribution width Auto (RBC) [Ratio]Ordered By: Art Bianchi on 96-82-6337Nrgynznnlqu distribution width (RBC) [Ratio]14.0 %11.9-15.3FPaulding County HospitalEstimated glomerular filtration rate (GFR) non- AmericanOrdered By: Art Bianchi on 10-31-2022 GFR/1.73 sq M.predicted among non-blacks MDRD (S/P/Bld) [Vol rate/Area]> 60 mL/MinTrihealthGlobulin Calc (S) [Mass/Vol]Ordered By: Art Bianchi on 42-48-7767Yzzvnqdu (S) [Mass/Vol]3.1 g/dLTrihealthHCG ( test) IA.rapid Ql (U)Ordered By: Art Bianchi on 42-91-8848GLW ( test) Ql (U)NegativeTrihealth Hematocrit Auto (Bld) [Volume fraction]Ordered By: Art Bianchi on 10-31-2022 Hematocrit (Bld) [Volume fraction]45.0 %36.0-46.0TrihealthHemoglobin [Mass/volume] in BloodOrdered By: Art Bianchi on 10-31-2022 Hemoglobin (Bld) [Mass/Vol]15.2 g/dL12.0-16.0[facility] Ketones Auto test strip (U) [Mass/Vol]Ordered By: Atr Bianchi on 10-31-2022 Ketones (U) [Mass/Vol]3+NegativeTrihealthLeukocytes [#/volume] corrected for nucleated erythrocytes in Blood by Automated coun Ordered By: Art Bianchi on 43-35-1997WCQ corrected for nucl RBC Auto (Bld) [#/Vol]14.0 10*3/uL4.5-13.5FPaulding County HospitalLymphocytes Auto (Bld) [#/Vol]Ordered By: Art Bianchi on 62-70-9490Hejfzktufsg (Bld) [#/Vol]2.2 10*3/uL1.20-4.8TrihealthLymphocytes/100 WBC Auto (Bld) Ordered By: Art Bianchi on 80-82-2588Vgphzdjrkgk/100 WBC (Bld)15.5 %.[facility] Auto (RBC) [Entitic mass]Ordered By: Art Bianchi on 73-88-3963WDA (RBC) [Entitic mass]28.6 pg25.0-35.0TrihealthMCHC Auto (RBC) [Mass/Vol]Ordered By: Art Bianchi on 92-33-0286PHOW (RBC) [Mass/Vol]33.7 g/dL31.0-37.0TrihealthMCV Auto (RBC) [Entitic vol]Ordered By: Art Bianchi on 42-84-5337MII (RBC) [Entitic vol]85.0 fL 78-102TrihealthMonocyte distribution width [Entitic volume] in Blood by AutomatedOrdered By: Art Bianchi on 84-98-8318Pjcdqytl distribution width Auto (Bld) [Entitic vol]14.69 %0.00-20.00TrihealthMonocytes Auto (Bld) [#/Vol]Ordered By: Art Bianchi on 10-31-2022 Monocytes (Bld) [#/Vol]1.3 10*3/uL0.1-1.00[facility] Monocytes/100 WBC Auto (Bld)Ordered By: Art Bianchi on 76-91-7896Pqhrcucrr/100 WBC (Bld)9.1 %.TrihealthNeutrophils Auto (Bld) [#/Vol] Ordered By: Art Bianchi on 22-04-6395Rlunwfxmuuq (Bld) [#/Vol]10.4 10*3/uL 1.2-7.7FPaulding County HospitalNeutrophils/100 WBC Auto (Bld)Ordered By: Art Bianchi on 35-42-0278Botbahxgznr/100 WBC (Bld)74.1 %.TrihealthNitrite Test strip Ql (U)Ordered By: Art Bianchi on 10-31-2022 Nitrite Ql (U)NegativeNegSelect Medical Cleveland Clinic Rehabilitation Hospital, AvonNo Panel InformationOrdered By: Art Bianchi on 42-58-72722-8 [LPF]0-8[facility]> 60 mL/MinTrihealth29.0 U/S01-68LfnenvjvdTrihealth102.97TrihealthNucleated erythrocytes [Presence] in Blood by Automated countOrdered By: Art Bianchi on 48-53-0591Sfeaoulqy RBC Auto Ql (Bld)0.1 /100{WBC}0-0.5FPaulding County HospitalPlatelet mean volume Auto (Bld) [Entitic vol]Ordered By: Art Bianchi on 89-40-4241Fmeqwfdr mean volume (Bld) [Entitic vol]8.3 fL6.3-10.7 TrihealthPlatelets Auto (Bld) [#/Vol]Ordered By: Art Bianchi on 22-44-3616Qpdvvvknc (Bld) [#/Vol]337 10*3/jI940-949BdlsuoxxzTrihealthProtein Auto test strip (U) [Mass/Vol]Ordered By: Art Bianchi on 56-47-1961Hcahjez (U) [Mass/Vol]100 mg/dLNegativeTrihealthProtein [Mass/volume] in Serum or PlasmaOrdered By: Art Bianchi on 66-40-2954Jfoajfs [Mass/Vol]8.2 g/dL6.1-7.9TrihealthRBC Auto (Bld) [#/Vol]Ordered By: Art Bianchi on 91-12-9091MYB (Bld) [#/Vol]5.29 10*6/uL4.10-5.10[facility] Hospitalerum or plasma alanine aminotransferase measurement without P-5'-P (enzymatic activiOrdered By: Art Bianchi on 81-37-9963UMW No additional P-5'-P [Catalytic activity/Vol]25 U/L10-60 [facility] Hospitalerum or plasma albumin/globulin mass ratio Ordered By: Art Bianchi on 63-16-7049Skbgcss/Globulin [Mass ratio]1.6 {ratio} [facility] Hospitalerum or plasma alkaline phosphatase measurement (enzymatic activity/volume)Ordered By: Art Bianchi on 16-87-5023IKX [Catalytic activity/Vol]62 U/O69-82IgthitzchSamaritan Hospitalerum or plasma anion gap determinationOrdered By: Atr Bianchi on 07-27-2546Iqauk gap [Moles/Vol]16.8 mmol/L6.0-15.0[facility] Hospitalerum or plasma aspartate aminotransferase measurement (enzymatic activity/volume)Ordered By: Art Bianchi on 19-45-5394PQH [Catalytic activity/Vol]25 U/Q50-77JzoodqpgiSamaritan Hospitalerum or plasma calcium measurement (mass/volume)Ordered By: Art Bianchi on 12-98-6324Kzblgjt [Mass/Vol]9.9 mg/dL8.2-10.2FSumma Health Wadsworth - Rittman Medical Centererum or plasma chloride measurement (moles/volume) Ordered By: Art Bianchi on 14-45-2634Fbbuhwda [Moles/Vol]96 mmol/L95-114 [facility] Hospitalerum or plasma creatinine measurement with calculation of estimated glomerular filtrOrdered By: Art Bianchi on 10-31-2022 Creatinine and Glomerular filtration rate.predicted panel (S/P/Bld)0.89 mg/dL 0.44-1.03[facility] Hospitalerum or plasma glucose measurement (mass/volume)Ordered By: Art Bianchi on 46-31-8216Mdctztf [Mass/Vol]120 mg/dL 70-100Sam[facility] Hospitalerum or plasma potassium measurement (moles/volume)Ordered By: Art Bianchi on 87-05-1228Aqvxsbhnu [Moles/Vol]3.2 mmol/L3.5-5.1FSumma Health Wadsworth - Rittman Medical Centererum or plasma sodium measurement (moles/volume)Ordered By: Art Bianchi on 70-34-1873Rxrswr [Moles/Vol]132 mmol/L 136-146Sam[facility]itan Hospitalerum or plasma total bilirubin measurement (mass/volume)Ordered By: Art Bianchi on 77-74-8196Saackcbxh [Mass/Vol]1.7 mg/dL0.3-1.2FSumma Health Wadsworth - Rittman Medical Centererum or plasma total carbon dioxide measurement (moles/volume)Ordered By: Art Bianchi on 10-31-2022 CO2 [Moles/Vol]22.4 mmol/L22.0-30.0[facility] Hospitalerum or plasma urea nitrogen measurement (mass/volume)Ordered By: Art Bianchi on 58-51-0953Mfca nitrogen [Mass/Vol]28 mg/dL9-23[facility] Specific gravity Auto test strip (U) [Rel density]Ordered By: Art Bianchi on 66-41-5921Rbrsphxo gravity (U) [Rel density]1.0301.001-1.030[facility] Hospitalquamous epithelial cells detection in urine sediment by light microscopyOrdered By: Art Bianchi on 26-16-1360Jydtmjhjem cells.squamous LM Ql (Urine sed)10-19 [HPF]0-2FPaulding County HospitalUrine bacteria detection by automated methodOrdered By: Art Bianchi on 07-69-0275Xanrwxmy Auto Ql (U)None seenNone SeenTrihealthUrine clarity by refractometry automatedOrdered By: Art Bianchi on 74-73-7307Ulolcct Refractometry automated (U)CloudyClearFPaulding County HospitalUrine culture routineOrdered By: Art Biacnhi 47-57-7795Ecjsuveg identified Cx Nom (U)2 DaysTrihealthUrine glucose measurement by automated test strip (mass/volume)Ordered By: Art Bianchi on 36-82-2452Fccpykp Auto test strip (U) [Mass/Vol]Normal mg/dLNormalTrihealthUrine hemoglobin detection by automated test stripOrdered By: Art Bianchi on 35-21-8102Pedatflxla Auto test strip Ql (U)3+NegativeTrihealthUrine leukocyte esterase detection by automated test stripOrdered By: Art Bianchi on 56-05-2678Mkelglnrz esterase Auto test strip Ql (U)2+Negative TrihealthUrobilinogen Auto test strip (U) [Mass/Vol] Ordered By: Art Bianchi on 11-49-7485Tgrtmkruykwk (U) [Mass/Vol]Normal mg/dL NormalTrihealthWBC Auto (Bld) [#/Vol]Ordered By: Art Bianchi on 08-61-4309XUS (Bld) [#/Vol]14.0 10*3/uL4.5-13.5FPaulding County HospitalpH Auto test strip (U)Ordered By: Art Bianchi on 08-14-0959fK (U) 6.5 [pH]5.0-9.0TrihealthBasophils Auto (Bld) [#/Vol] Ordered By: Ravi Arguello on 77-93-0478Zreqescxh (Bld) [#/Vol]0.0 10*3/uL0.0-0.1 TrihealthBasophils/100 WBC Auto (Bld)Ordered By: Ravi Arguello on 62-87-8368Jagmmefqn/100 WBC (Bld)0.3 %.TrihealthBody fluid albumin measurement (mass/volume)Ordered By: Ravi Arguello on 52-87-3823Fakwrqv (Body fld) [Mass/Vol]5.2 g/dL3.2-5.5FPaulding County HospitalCreatinine and Glomerular filtration rate.predicted panel (S/P/Bld) Ordered By: Ravi Arguello on 80-71-3364Cefqilmtko [Mass/Vol]0.85 mg/dL0.44-1.03 TrihealthDirect bilirubin measurementOrdered By: Ravi Arguello on 93-44-4742Ihvfxtmor.direct [Mass/Vol]0.1 mg/dL0.0-0.4FPaulding County HospitalEosinophils Auto (Bld) [#/Vol]Ordered By: Ravi Arguello on 95-44-3892Pwjgmyxglbf (Bld) [#/Vol]0.0 10*3/uL0.0-0.7FPaulding County HospitalEosinophils/100 WBC Auto (Bld)Ordered By: Ravi Arguello on 10-29-2022 Eosinophils/100 WBC (Bld)0.1 %.TrihealthErythrocyte distribution width Auto (RBC) [Ratio]Ordered By: Ravi Arguello on 10-29-2022 Erythrocyte distribution width (RBC) [Ratio]14.4 %11.9-15.3FPaulding County HospitalEstimated glomerular filtration rate (GFR) non- Ordered By: Ravi Arguello on 76-45-1362LWN/1.73 sq M.predicted among non-blacks MDRD (S/P/Bld) [Vol rate/Area]> 60 mL/MinTrihealth Globulin Calc (S) [Mass/Vol]Ordered By: Ravi Arguello on 00-79-0068Iodvcilf (S) [Mass/Vol]3.7 g/dLTrihealthHematocrit Auto (Bld) [Volume fraction]Ordered By: Ravi Arguello on 43-94-3014Bmkgdrfwyc (Bld) [Volume fraction]42.9 %36.0-46.0TrihealthHemoglobin [Mass/volume] in BloodOrdered By: Ravi Arguello on 43-84-9463Ttnomrgmdm (Bld) [Mass/Vol]14.3 g/dL12.0-16.0TrihealthLaboratory - Chemistry and Chemistry - challengeOrdered By: Ravi Arguello on 01-73-2718Gqnkat [Catalytic activity/Vol]25.0 U/Z50-61MqcnilarlTrihealthLeukocytes [#/volume] corrected for nucleated erythrocytes in Blood by Automated coun Ordered By: Ravi Arguello on 08-96-0738LRH corrected for nucl RBC Auto (Bld) [#/Vol]13.7 10*3/uL4.5-13.5FPaulding County HospitalLymphocytes Auto (Bld) [#/Vol]Ordered By: Ravi Arguello on 09-00-8362Fdgwmvpmjmu (Bld) [#/Vol]1.7 10*3/uL1.20-4.8TrihealthLymphocytes/100 WBC Auto (Bld) Ordered By: Ravi Arguello on 58-10-8287Xvifkceoanq/100 WBC (Bld)12.4 %.[facility] Auto (RBC) [Entitic mass]Ordered By: Ravi Arguello on 76-03-0377GWK (RBC) [Entitic mass]28.4 pg25.0-35.0TrihealthMCHC Auto (RBC) [Mass/Vol]Ordered By: Ravi Arguello on 81-56-9984MITK (RBC) [Mass/Vol]33.3 g/dL31.0-37.0TrihealthMCV Auto (RBC) [Entitic vol]Ordered By: Ravi Arguello on 77-96-2198WLM (RBC) [Entitic vol]85.1 nS51-206LoqbppkdiTrihealthMonocyte distribution width [Entitic volume] in Blood by AutomatedOrdered By: Ravi Arguello on 55-92-7718Rkzjuztq distribution width Auto (Bld) [Entitic vol]16.57 %0.00-20.00TrihealthMonocytes Auto (Bld) [#/Vol]Ordered By: Ravi Arguello on 10-29-2022 Monocytes (Bld) [#/Vol]0.9 10*3/uL0.1-1.00[facility] Monocytes/100 WBC Auto (Bld)Ordered By: Ravi Arguello on 13-89-6021Wcadymdue/100 WBC (Bld)6.8 %.TrihealthNeutrophils Auto (Bld) [#/Vol] Ordered By: Ravi Arguello on 27-86-4302Rhzhmjbrqhb (Bld) [#/Vol]11.0 10*3/uL 1.2-7.7FPaulding County HospitalNeutrophils/100 WBC Auto (Bld)Ordered By: Ravi Arguello on 10-46-3919Cgklenvqkra/100 WBC (Bld)80.4 %.TrihealthNo Panel InformationOrdered By: Ravi Arguello on 10-29-2022 Estimated GFR ()> 60 mL/MinTrihealth Comment on above:GFR estimated reference range: According to KDOQI guidelines, <60 ml/min/1.73m2 is sufficient todiagnose a patient with chronic kidney disease.Pharmacy Creatinine Clearance (Edkw319.83[facility]> 60 mL/MinTrihealth25.0 U/S11-22VhwjhkmyhTrihealth105.83TrihealthNucleated erythrocytes [Presence] in Blood by Automated countOrdered By: Ravi Arguello on 17-65-2608Eupvpllzz RBC Auto Ql (Bld)0.0 /100{WBC}0-0.5FPaulding County HospitalPlatelet mean volume Auto (Bld) [Entitic vol]Ordered By: Ravi Arguello on 50-50-1803Ebczkyfy mean volume (Bld) [Entitic vol]8.4 fL6.3-10.7 TrihealthPlatelets Auto (Bld) [#/Vol]Ordered By: Ravi Arguello on 97-71-6697Yfsnlcrqb (Bld) [#/Vol]355 10*3/zK503-495RklytwbqrTrihealthProtein [Mass/volume] in Serum or PlasmaOrdered By: Ravi Arguello on 97-19-6229Ppsmzgd [Mass/Vol]8.9 g/dL6.1-7.9[facility] RBC Auto (Bld) [#/Vol]Ordered By: Ravi Arguello on 34-15-1304RSY (Bld) [#/Vol] 5.04 10*6/uL4.10-5.10Samaritan Hospitalerum or plasma alanine aminotransferase measurement without P-5'-P (enzymatic activiOrdered By: Ravi Arguello on 40-68-7490QAW No additional P-5'-P [Catalytic activity/Vol]24 U/L10-60 [facility] Hospitalerum or plasma albumin/globulin mass ratio Ordered By: Ravi Arguello on 50-95-5812Wppjxfj/Globulin [Mass ratio]1.4 {ratio} [facility] Hospitalerum or plasma alkaline phosphatase measurement (enzymatic activity/volume)Ordered By: Ravi Arguello on 77-51-9433OZC [Catalytic activity/Vol]68 U/Y12-29PhuzxixfjSamaritan Hospitalerum or plasma anion gap determinationOrdered By: Ravi Arguello on 34-03-2556Rzhpv gap [Moles/Vol]19.9 mmol/L6.0-15.0[facility] Hospitalerum or plasma aspartate aminotransferase measurement (enzymatic activity/volume)Ordered By: Ravi Arguello on 02-95-3560WRB [Catalytic activity/Vol]20 U/N64-98EtpavbixwSamaritan Hospitalerum or plasma calcium measurement (mass/volume)Ordered By: Ravi Arguello on 60-46-6906Ezfebmq [Mass/Vol]10.4 mg/dL8.2-10.2FSumma Health Wadsworth - Rittman Medical Centererum or plasma chloride measurement (moles/volume) Ordered By: Ravi Arguello on 56-48-9299Xejioxup [Moles/Vol]100 mmol/L95-114 [facility] Hospitalerum or plasma creatinine measurement with calculation of estimated glomerular filtrOrdered By: Ravi Arguello on 10-29-2022 Creatinine and Glomerular filtration rate.predicted panel (S/P/Bld)0.85 mg/dL 0.44-1.03[facility] Hospitalerum or plasma glucose measurement (mass/volume)Ordered By: Ravi Arguello on 27-65-8303Mbjemvj [Mass/Vol]114 mg/dL 70-100TrihealthComment on above:ADA recommended reference rangeRandom Glucose Reference Range is dependent on time and content of last meal. Glucose of more than 200 mg/dL in a nonstressed, ambulatory subject supports the diagnosisof Diabetes Mellitus.Serum or plasma non- glucuronidated bilirubin measurement (mass/volume)Ordered By: Ravi Arguello on 09-65-8329Mbyupzexf.indirect [Mass/Vol]1.1 mg/dLSamaritan Hospitalerum or plasma potassium measurement (moles/volume)Ordered By: Ravi Arguello on 68-92-9079Pxdeqolsj [Moles/Vol]3.3 mmol/L3.5-5.1FSumma Health Wadsworth - Rittman Medical Centererum or plasma sodium measurement (moles/volume)Ordered By: Ravi Arguello on 24-53-9846Nnmfun [Moles/Vol]137 mmol/W642-001GqwvnivrhSamaritan Hospitalerum or plasma total bilirubin measurement (mass/volume)Ordered By: Ravi Arguello on 39-43-2786Moahikgyo [Mass/Vol]1.2 mg/dL0.3-1.2FSumma Health Wadsworth - Rittman Medical Centererum or plasma total carbon dioxide measurement (moles/volume)Ordered By: Ravi Arguello on 99-35-5760JI6 [Moles/Vol]20.4 mmol/L 22.0-30.0[facility] Hospitalerum or plasma urea nitrogen measurement (mass/volume)Ordered By: Ravi Arguello on 77-76-7263Pndq nitrogen [Mass/Vol]21 mg/dL9-23TrihealthWBC Auto (Bld) [#/Vol] Ordered By: Ravi Arguello on 25-46-6830MOC (Bld) [#/Vol]13.7 10*3/uL4.5-13.5 TrihealthBasophils Auto (Bld) [#/Vol]Ordered By: Modesta Chand on 74-85-2515Ockgqraxy (Bld) [#/Vol]0.0 10*3/uL0.0-0.1 TrihealthBasophils/100 WBC Auto (Bld)Ordered By: Modesta Chand on 44-22-5086Ossdruxax/100 WBC (Bld)0.3 %.TrihealthBody fluid albumin measurement (mass/volume)Ordered By: Modesta Chand on 45-42-7899Foupddm (Body fld) [Mass/Vol]4.7 g/dL3.2-5.5FPaulding County HospitalCreatinine and Glomerular filtration rate.predicted panel (S/P/Bld)Ordered By: Modesta Chand on 73-89-6378Kqoskeasfy [Mass/Vol]0.90 mg/dL0.44-1.03TrihealthEosinophils Auto (Bld) [#/Vol] Ordered By: Modesta Chand on 78-64-7322Hhwvasrvlfv (Bld) [#/Vol]0.3 10*3/uL0.0-0.7FPaulding County HospitalEosinophils/100 WBC Auto (Bld) Ordered By: Modesta Chand on 97-43-3384Bibhiujogxw/100 WBC (Bld)2.2 %. TrihealthErythrocyte distribution width Auto (RBC) [Ratio]Ordered By: Modesta Chand on 15-60-2843Dynbziuymfc distribution width (RBC) [Ratio]14.0 %11.9-15.3FPaulding County HospitalEstimated glomerular filtration rate (GFR) non- AmericanOrdered By: Modesta Chand on 24-46-7365JEP/1.73 sq M.predicted among non-blacks MDRD (S/P/Bld) [Vol rate/Area]> 60 mL/MinTrihealthGlobulin Calc (S) [Mass/Vol]Ordered By: Modesta Chand on 74-95-8607Tsyxeiqx (S) [Mass/Vol] 2.5 g/dLTrihealthHematocrit Auto (Bld) [Volume fraction] Ordered By: Modesta Chand on 21-21-2328Fdchyjbogh (Bld) [Volume fraction] 46.5 %36.0-46.0TrihealthHemoglobin [Mass/volume] in BloodOrdered By: Modesta Chand on 05-98-4446Ogyfozkrsa (Bld) [Mass/Vol] 15.6 g/dL12.0-16.0TrihealthLaboratory - Chemistry and Chemistry - challengeOrdered By: Modesta Chand on 00-61-1483Nmtjtc [Catalytic activity/Vol]27.0 U/L04-06KqebncmthTrihealthLaboratory - Hematology and Cell countsOrdered By: Modesta Chand on 08-27-2022 Nucleated RBC/100 WBC (Bld) [Ratio]0.1 %0-0.5FPaulding County Hospital Leukocytes [#/volume] in Blood by Automated countOrdered By: Modesta Chand on 50-32-3875WQI (Bld) [#/Vol]13.4 10*3/uL4.5-13.5FPaulding County HospitalLymphocytes Auto (Bld) [#/Vol]Ordered By: Modesta Chand on 85-92-5840Ntogqdzixug (Bld) [#/Vol]3.1 10*3/uL1.20-4.8TrihealthLymphocytes/100 WBC Auto (Bld)Ordered By: Modesta Chand on 17-10-0929Mycznbajaww/100 WBC (Bld)22.9 %.[facility] Auto (RBC) [Entitic mass]Ordered By: Modesta Chand on 44-19-4107PYL (RBC) [Entitic mass]28.4 pg25.0-35.0TrihealthMCHC Auto (RBC) [Mass/Vol]Ordered By: Modesta Chand on 88-12-0088GIPJ (RBC) [Mass/Vol]33.5 g/dL31.0-37.0TrihealthMCV Auto (RBC) [Entitic vol] Ordered By: Modesta Chand on 53-05-5197POW (RBC) [Entitic vol]84.8 fL 78-102TrihealthMonocytes Auto (Bld) [#/Vol]Ordered By: Modesta Chand on 36-56-7220Jxcmihsdt (Bld) [#/Vol]1.2 10*3/uL0.1-1.00 TrihealthMonocytes/100 WBC Auto (Bld)Ordered By: Modesta Chand on 54-28-2235Doltvjggt/100 WBC (Bld)9.1 %.TrihealthNeutrophils Auto (Bld) [#/Vol]Ordered By: Modesta Chand on 66-23-6624Jqikgdkmxfa (Bld) [#/Vol]8.8 10*3/uL1.2-7.7FPaulding County HospitalNeutrophils/100 WBC Auto (Bld)Ordered By: Modesta Chand on 95-91-3713Lsfuwrckjkv/100 WBC (Bld)65.5 %.TrihealthNo Panel InformationOrdered By: Modesta Chand on 52-06-2322Zggawmodl GFR ()> 60 mL/MinTrihealthComment on above: GFR estimated reference range: According to KDOQI guidelines, <60 ml/min/1.73m2 is sufficient todiagnose a patient with chronic kidney disease.Pharmacy Creatinine Clearance (ChemN/[facility]13.4 10*3/uL 4.5-13.5FPaulding County Hospital0.1 %0-0.5FPaulding County Hospital> 60 mL/MinTrihealth27.0 U/H57-30DykuwqriyTrihealthN/[facility] HospitalPlatelet mean volume Auto (Bld) [Entitic vol]Ordered By: Modesta Chand on 47-47-6925Ypzyhkwc mean volume (Bld) [Entitic vol]8.9 fL6.3-10.7FPaulding County Hospital Platelets Auto (Bld) [#/Vol]Ordered By: Modesta Chand on 08-27-2022 Platelets (Bld) [#/Vol]373 10*3/hQ465-731YlhaxsozqTrihealth Protein [Mass/volume] in Serum or PlasmaOrdered By: Modesta Chand on 60-99-0625Xatxqfv [Mass/Vol]7.2 g/dL6.1-7.9TrihealthRBC Auto (Bld) [#/Vol]Ordered By: Modesta Chand on 74-12-9186PLJ (Bld) [#/Vol] 5.49 10*6/uL4.10-5.10[facility] Hospitalerum or plasma alanine aminotransferase measurement without P-5'-P (enzymatic activiOrdered By: Modesta Chand on 46-23-1040DAP No additional P-5'-P [Catalytic activity/Vol]20 U/L98-17EbolmplofSamaritan Hospitalerum or plasma albumin/globulin mass ratioOrdered By: Modesta Chand on 08-27-2022 Albumin/Globulin [Mass ratio]1.9 {ratio}[facility] Hospitalerum or plasma alkaline phosphatase measurement (enzymatic activity/volume)Ordered By: Modesta Chand on 89-54-1552MYG [Catalytic activity/Vol]63 U/L32-92 [facility] Hospitalerum or plasma amylase measurement (enzymatic activity/volume)Ordered By: Modesta Chand on 58-38-6382Mghsoaf [Catalytic activity/Vol]25 U/Q96-725QnfzvgwytSamaritan Hospitalerum or plasma anion gap determinationOrdered By: Modesta Chand on 95-78-0117Mbwpg gap [Moles/Vol]22.5 mmol/L6.0-15.0[facility] Hospitalerum or plasma aspartate aminotransferase measurement (enzymatic activity/volume)Ordered By: Modesta Chand on 26-42-4720SSX [Catalytic activity/Vol]18 U/L10-42 [facility] Hospitalerum or plasma calcium measurement (mass/volume)Ordered By: Modesta Chand on 14-43-4143Nutxtil [Mass/Vol]10.1 mg/dL8.2-10.2FSumma Health Wadsworth - Rittman Medical Centererum or plasma chloride measurement (moles/volume)Ordered By: Modesta Chand on 95-81-7055Arrbdwad [Moles/Vol]89 mmol/N11-432LxgdvcbfmSamaritan Hospitalerum or plasma creatinine measurement with calculation of estimated glomerular filtrOrdered By: Modesta Chand on 30-67-2361Zzjsbrainz and Glomerular filtration rate.predicted panel (S/P/Bld)0.90 mg/dL0.44-1.03[facility] Hospitalerum or plasma glucose measurement (mass/volume)Ordered By: Modesta Chand on 39-77-0956Yzeepxc [Mass/Vol]76 mg/hY93-653OhmnejbbcTrihealthComment on above:ADA recommended reference rangeRandom Glucose Reference Range is dependent on time and content of last meal. Glucose of more than 200 mg/dL in a nonstressed, ambulatory subject supports the diagnosisof Diabetes Mellitus.Serum or plasma potassium measurement (moles/volume)Ordered By: Modesta Chand on 42-56-1032Wlaxnqdxw [Moles/Vol]3.7 mmol/L3.5-5.1 [facility] Hospitalerum or plasma sodium measurement (moles/volume)Ordered By: Modesta Chand on 07-37-2420Qbxcdl [Moles/Vol]131 mmol/N973-073SlffrvihsSamaritan Hospitalerum or plasma total bilirubin measurement (mass/volume)Ordered By: Modesta Chand on 22-97-0038Fdhwxomkp [Mass/Vol]1.6 mg/dL0.3-1.2FPaulding County HospitalComment on above: Samples from patients who have taken Naproxen have shown spurious elevation in Total Bilirubin levels. A metabolite of Naproxen, O-desmethylnaproxen, has been shown to interfere with the Solomon method for measuring Total Bilirubin.Serum or plasma total carbon dioxide measurement (moles/volume)Ordered By: Modesta Chand on 25-66-5541BD1 [Moles/Vol]23.2 mmol/L22.0-30.0 [facility] Hospitalerum or plasma urea nitrogen measurement (mass/volume)Ordered By: Modesta Chand on 14-46-4304Phcx nitrogen [Mass/Vol]15 mg/dL9-23TrihealthBasophils Auto (Bld) [#/Vol]Ordered By: Gregorio Carey on 56-00-4400Ofhadpimh (Bld) [#/Vol]0.0 10*3/uL0.0-0.1FPaulding County HospitalBasophils/100 WBC Auto (Bld) Ordered By: Gregorio Carey on 53-39-7030Yiqxwutxg/100 WBC (Bld)0.3 %. TrihealthBlood hemoglobin measurement (mass/volume) Ordered By: Gregorio Carey on 45-22-9681Zgcseegdgq (Bld) [Mass/Vol]13.1 g/dL12.0-16.0TrihealthBlood leukocytes automated count (number/volume)Ordered By: Gregorio Carey on 09-75-5430RNA (Bld) [#/Vol] 9.7 10*3/uL4.5-13.5FPaulding County HospitalCreatinine and Glomerular filtration rate.predicted panel (S/P/Bld)Ordered By: Gregorio Carey on 15-39-4175Gqbymskzql [Mass/Vol]0.75 mg/dL0.44-1.03TrihealthEosinophils Auto (Bld) [#/Vol]Ordered By: Gregorio Carey on 70-79-1219Dkwpfnsllld (Bld) [#/Vol]0.1 10*3/uL0.0-0.7FPaulding County HospitalEosinophils/100 WBC Auto (Bld)Ordered By: Gregorio Carey on 60-14-8091Hvmjqfiithn/100 WBC (Bld)1.0 %.[facility] Erythrocyte distribution width Auto (RBC) [Ratio]Ordered By: Gregorio Carey on 89-90-3704Mshhctmupgx distribution width (RBC) [Ratio]14.1 % 11.9-15.3FPaulding County HospitalEstimated glomerular filtration rate (GFR) non- AmericanOrdered By: Gregorio Carey on 26-12-8316SJW/1.73 sq M.predicted among non-blacks MDRD (S/P/Bld) [Vol rate/Area]> 60 mL/Min TrihealthHematocrit Auto (Bld) [Volume fraction]Ordered By: Gregorio Carey on 71-36-2211Pxpwlihupm (Bld) [Volume fraction]39.6 % 36.0-46.0TrihealthLaboratory - Hematology and Cell countsOrdered By: Gregorio Carey on 27-01-4679Mriukbfqm RBC/100 WBC (Bld) [Ratio]0.0 %0-0.5FPaulding County HospitalLymphocytes Auto (Bld) [#/Vol] Ordered By: Gregorio Carey on 69-50-8316Vhguzdoktju (Bld) [#/Vol]2.0 10*3/uL1.20-4.8TrihealthLymphocytes/100 WBC Auto (Bld) Ordered By: Gregorio Carey on 30-51-3043Sphlexajpls/100 WBC (Bld)20.5 %. [facility] ([facility]BC) [Entitic mass]Ordered By: Gregorio Carey on 02-29-7162CAS (RBC) [Entitic mass]28.0 pg25.0-35.0 TrihealthMCHC Auto (RBC) [Mass/Vol]Ordered By: Gregorio Carey on 14-95-1096GGKT (RBC) [Mass/Vol]33.2 g/dL31.0-37.0 TrihealthMCV Auto (RBC) [Entitic vol]Ordered By: Gregorio Carey on 22-68-6563MYD (RBC) [Entitic vol]84.5 zZ39-046ZrnygcgsyTrihealthMonocytes Auto (Bld) [#/Vol]Ordered By: Gregorio Carey on 03-50-3836Tlfosecup (Bld) [#/Vol]0.8 10*3/uL0.1-1.00TrihealthMonocytes/100 WBC Auto (Bld)Ordered By: Gregorio Carey on 84-30-1228Tgljelaoj/100 WBC (Bld)8.0 %.TrihealthNeutrophils Auto (Bld) [#/Vol]Ordered By: Gregorio Carey on 51-88-8410Utxinjgdbbk (Bld) [#/Vol]6.8 10*3/uL1.2-7.7FPaulding County HospitalNeutrophils/100 WBC Auto (Bld)Ordered By: Gregorio Carey on 49-23-1520Zcirtnjpovv/100 WBC (Bld)70.2 %.TrihealthNo Panel InformationOrdered By: Gregorio Carey on 38-50-7210Uqccmgrip GFR ()> 60 mL/MinTrihealthComment on above: GFR estimated reference range: According to KDOQI guidelines, <60 ml/min/1.73m2 is sufficient todiagnose a patient with chronic kidney disease.Pharmacy Creatinine Clearance (Kusq601.26[facility]9.7 10*3/uL 4.5-13.5FPaulding County Hospital0.0 %0-0.5FPaulding County Hospital> 60 mL/MinTrihealth117.26TrihealthPlatelet mean volume Auto (Bld) [Entitic vol]Ordered By: Gregorio Carey on 57-58-3552Ewfmzyth mean volume (Bld) [Entitic vol]8.6 fL 6.3-10.7FPaulding County HospitalPlatelets Auto (Bld) [#/Vol]Ordered By: Gregorio Carey on 38-25-9807Sgkrupibb (Bld) [#/Vol]246 10*3/fQ667-535 TrihealthRBC Auto (Bld) [#/Vol]Ordered By: Gregorio Carey on 74-47-1017JUW (Bld) [#/Vol]4.69 10*6/uL4.10-5.10[facility] Hospitalerum nuclear antibody titerOrdered By: Gregorio Carey on 55-40-2369Boenrjt Ab (S) [Titer]Negative.[facility] Comment on above:Negative <1:80 Borderline 1:80 Positive >1:80ICAP nomenclature: AC-0For more information about Hep-2 cell patterns useANApatterns.org, the official website for theInternational Consensus on Antinuclear Antibody (EDMOND)Patterns (ICAP).Performed at: - [place] [id number] Director: James Nelson PhD, Phone: [phone] or plasma anion gap determinationOrdered By: Gregorio Carey on 39-26-6089Ukipq gap [Moles/Vol]17.0 mmol/L6.0-15.0[facility] Hospitalerum or plasma beta choriogonadotropin measurement (units/volume)Ordered By: Gregorio Carey on 90-80-1974OYU.beta subunit Qnm[IU]/mLTrihealthComment on above:Approximate Approximate hCG Gestational Age Range (mIU/ml) (weeks) 0.2-1 5-50 1-2 50-500 2-3 100-5,000 3-4 500-10,000 4-5 1,000-50,000 5-6 10,000-100,000 6-8 15,000-200,000 8-12 10,000-100,000 Approximate Approximate hCG Gestational Age Range (mIU/ml) (weeks)0.2-1 5-50 1-2 50-500 2-3 100-5,000 3-4 500-10,000 4-5 1,000-50,000 5-6 10,000-100,000 6-8 15,000-200,000 8-12 10,000-100,000Serum or plasma calcium measurement (mass/volume)Ordered By: Gregorio Carey on 34-36-5170Wdnexfk [Mass/Vol]9.4 mg/dL8.2-10.2FSumma Health Wadsworth - Rittman Medical Centererum or plasma chloride measurement (moles/volume)Ordered By: Gregorio Carey on 24-44-3518Zfnvvboo [Moles/Vol]99 mmol/U91-012EuuiijlzfSamaritan Hospitalerum or plasma creatinine measurement with calculation of estimated glomerular filtrOrdered By: Gregorio Carey on 18-21-9404Eqsjlhipqc and Glomerular filtration rate.predicted panel (S/P/Bld)0.75 mg/dL0.44-1.03[facility] Hospitalerum or plasma glucose measurement (mass/volume)Ordered By: Gregorio Carey on 51-60-2426Gcxckwf [Mass/Vol]90 mg/lO69-577GzecuosjfTrihealthComment on above:ADA recommended reference range Random Glucose [...] potassium measurement (moles/volume)Ordered By: Gregorio Carey on 91-80-7304Yglawrlnk [Moles/Vol]3.8 mmol/L3.5-5.1 [facility] Hospitalerum or plasma sodium measurement (moles/volume)Ordered By: Gregorio Carey on 37-68-9413Cmymgi [Moles/Vol] 134 mmol/F406-245AwsmcgtkrSamaritan Hospitalerum or plasma total carbon dioxide measurement (moles/volume)Ordered By: Gregorio Carey on 08-22-2022 CO2 [Moles/Vol]21.8 mmol/L22.0-30.0[facility] Hospitalerum or plasma urea nitrogen measurement (mass/volume)Ordered By: Gregorio Carey on 58-42-5348Gqwp nitrogen [Mass/Vol]7 mg/dL9-TrihealthUrine culture routineOrdered By: Gregorio Carey on 08-22-2022 Bacteria identified Cx Nom (U)2 [facility] HospitalUrine culture routineOrdered By: Gilson Castro on 03-92-5709Qaqhyiyo identified Cx Nom (U)2 [facility] HospitalUrine culture routineOrdered By: Colten Fry on 79-38-9855Ksnzbmgw identified Cx Nom (U)2 [facility] HospitalAmphetamine Screen Ql (U)Ordered By: Gilson Castro on 75-16-4057Wfwvdmoofmar Ql (U)NegativeNegativeTrihealth Automated erythrocytes count in urine sediment (number/area)Ordered By: Gilson Castro on 38-59-9831CVD Auto (Urine sed) [#/Area]None seen [HPF]0-4FPaulding County HospitalAutomated leukocytes count in urine sediment (number/area)Ordered By: Gilson Castro on 01-38-5188HBT Auto (Urine sed) [#/Area]1-2 [HPF]0-4FPaulding County HospitalBarbiturates [Presence] in UrineOrdered By: Gilson Castro on 58-09-7057Jzvpndziapdn Ql (U)PositiveNegative TrihealthBasophils Auto (Bld) [#/Vol]Ordered By: Gilson Castro on 52-08-9728Azmgdzigb (Bld) [#/Vol]0.0 10*3/uL0.0-0.1FPaulding County HospitalBasophils/100 WBC Auto (Bld)Ordered By: Gilson Castro on 91-73-8409Zbjajfkyf/100 WBC (Bld)0.4 %.[facility] Benzodiazepines [Presence] in UrineOrdered By: Gilson Castro on 08-20-2022 Benzodiazepines Ql (U)NegativeNegSelect Medical Cleveland Clinic Rehabilitation Hospital, AvonBilirubin Test strip Ql (U)Ordered By: Gilson Castro on 24-62-6043Qtmdkldsw Ql (U) NegativeNegSelect Medical Cleveland Clinic Rehabilitation Hospital, AvonBlood anisocytosis detection Ordered By: Gilson Castro on 90-22-9372Kxkcmghgjglp Ql (Bld)SlightTrihealthBlood hemoglobin measurement (mass/volume)Ordered By: Gilson Castro on 22-16-0530Hsjwdupwgb (Bld) [Mass/Vol]12.1 g/dL12.0-16.0 TrihealthBlood leukocytes automated count (number/volume)Ordered By: Gilson Castro on 43-80-7024SBL (Bld) [#/Vol]10.9 10*3/uL4.5-13.5FPaulding County HospitalCOVID-19 Positive/Negative Ordered By: Ravi Arguello on 37-14-4142OUOM-CoV-2 (COVID-19) N gene JANAK+probe Ql (Resp)NegativeNegSelect Medical Cleveland Clinic Rehabilitation Hospital, AvonComment on above:Testing for SARS-CoV-2 by RT-PCR This test was developed and its performance characteristics determined by [employer] ([employer]) and validated at the [facility]. This test has not been FDA cleared [...] and its performance characteristics determined by [employer] ([employer]) and validated at the [facility]. This test has not been FDA cleared [...] SARS-CoV+SARS-CoV-2 (COVID-19) Ag IA.rapid Ql (Resp)NegativeNegSelect Medical Cleveland Clinic Rehabilitation Hospital, AvonComment on above:This is a duplicate [employer] SARS Antigen (JOSE A) result to be used for statistical tracking purpose only.Cannabinoids [Presence] in Urine by Screen methodOrdered By: Gilson Castro on 08-20-2022 Cannabinoids Screen Ql (U)PositiveNegSelect Medical Cleveland Clinic [facility], [place] Comment on above:These are unconfirmed results and [...] ng/mLColor Auto (U)Ordered By: Gilson Castro on [id number] (U)YellowYellowTrihealthCreatinine and Glomerular filtration rate.predicted panel (S/P/Bld)Ordered By: Gilson Castro on 42-56-5348Thjrmxonls [Mass/Vol]0.65 mg/dL0.44-1.03 TrihealthEosinophils Auto (Bld) [#/Vol]Ordered By: Gilson Castro on 15-70-2481Tyhuffttinl (Bld) [#/Vol]0.0 10*3/uL0.0-0.7FPaulding County HospitalEosinophils/100 WBC Auto (Bld)Ordered By: Gilson Castro on 34-13-5843Ukfngbtnlzv/100 WBC (Bld)0.3 %.[facility] Erythrocyte distribution width Auto (RBC) [Ratio]Ordered By: Gilson Castro on 75-57-5267Lcmsbsnmyrn distribution width (RBC) [Ratio]13.9 %11.9-15.3FPaulding County HospitalEstimated glomerular filtration rate (GFR) non- AmericanOrdered By: Gilson Castro on 21-72-2140ISN/1.73 sq M.predicted among non-blacks MDRD (S/P/Bld) [Vol rate/Area]> 60 mL/MinTrihealthHematocrit Auto (Bld) [Volume fraction]Ordered By: Gilson Castro on 28-08-9658Blshjcawog (Bld) [Volume fraction]36.8 %36.0-46.0TrihealthKetones Auto test strip (U) [Mass/Vol]Ordered By: Gilson Castro on 04-99-8007Hyhoyhg (U) [Mass/Vol]2+NegativeTrihealth Laboratory - Chemistry and Chemistry - challengeOrdered By: Gilson Castro on 70-83-2527Zmhdonfgl [Mass/Vol]1.9 mg/dL1.6-2.6FPaulding County Hospital Laboratory - Drug toxicologyOrdered By: Gilson Castro on 59-38-1111Dkczwcj Ql (U)NegativeNegativeTrihealthLaboratory - Hematology and Cell countsOrdered By: Gilson Castro on 34-70-4557Sldsxavsy RBC/100 WBC (Bld) [Ratio]0.0 %0-0.5FPaulding County HospitalLaboratory - UrinalysisOrdered By: Gilson Castro on 63-38-1858Gqbmeas casts LM Ql (Urine sed)None seen [LPF] 0-8TrihealthLymphocytes Auto (Bld) [#/Vol]Ordered By: Gilson Castro on 40-86-4589Dtlzxtgceoc (Bld) [#/Vol]1.3 10*3/uL1.20-4.8TrihealthLymphocytes/100 WBC Auto (Bld)Ordered By: Gilson Castro on 99-74-7918Luhsxmsiguy/100 WBC (Bld)11.5 %.[facility] MCH Auto (RBC) [Entitic mass]Ordered By: Gilson Castro on 70-29-7141FNI (RBC) [Entitic mass]28.1 pg25.0-35.0TrihealthMCHC Auto (RBC) [Mass/Vol]Ordered By: Gilson Castro on 68-39-0874YUKY (RBC) [Mass/Vol]32.9 g/dL 31.0-37.0TrihealthMCV Auto (RBC) [Entitic vol]Ordered By: Gilson Castro on 71-21-2793PMX (RBC) [Entitic vol]85.5 fN74-102RghrvihonTrihealthMonocytes Auto (Bld) [#/Vol]Ordered By: Gilson Castro on 70-96-5573Gjcpwjfyz (Bld) [#/Vol]0.4 10*3/uL0.1-1.00TrihealthMonocytes/100 WBC Auto (Bld)Ordered By: Gilson Castro on 08-20-2022 Monocytes/100 WBC (Bld)3.7 %.TrihealthNeutrophils Auto (Bld) [#/Vol]Ordered By: Gilson Castro on 87-90-3540Njxdlxjpfla (Bld) [#/Vol]9.2 10*3/uL1.2-7.7FPaulding County HospitalNeutrophils/100 WBC Auto (Bld) Ordered By: Gilson Castro on 29-02-6787Vmsywjxhapc/100 WBC (Bld)84.1 %.TrihealthNitrite Test strip Ql (U)Ordered By: Gilson Castro on 80-85-5820Kvzepjv Ql (U)NegativeNegativeTrihealthNo Panel InformationOrdered By: Gilson Castro on 21-33-8942Aqkt seen [LPF]0-8 TrihealthNegativeNegSelect Medical [facility], AvonEstimated GFR ()> 60 mL/MinTrihealthComment on above:GFR estimated reference range: According to KDOQI guidelines, <60 ml/min/1.73m2 is sufficient todiagnose a patient with chronic kidney disease.Pharmacy Creatinine Clearance (Vhhi696.96TrihealthPlatelet EstimateNormalNormSelect Medical Specialty [facility] [place] Platelet Morphology CommentNormalNormSelect Medical Specialty Hospital - CincinnatiNormal NormalTrihealth1.9 mg/dL1.6-2.6FPaulding County HospitalNo Panel InformationOrdered By: Ravi Arguello on 36-20-9038WWDJ Antigen (LFIA)TrihealthPhencyclidine Screen Ql (U) Ordered By: Gilson Castro on 57-65-0295Igkqfarjdhddt Ql (U)NegativeNegative TrihealthPlatelet mean volume Auto (Bld) [Entitic vol] Ordered By: Gilson Castro on 09-24-4309Cgzeusud mean volume (Bld) [Entitic vol] 8.6 fL6.3-10.7FPaulding County HospitalPlatelets Auto (Bld) [#/Vol] Ordered By: Gilson Castro on 27-81-8556Ejotztdkp (Bld) [#/Vol]145 10*3/iO064-756 TrihealthComment on above:Delta: 314 on 08/19/22 Protein Auto test strip (U) [Mass/Vol]Ordered By: Gilson Castro on 08-20-2022 Protein (U) [Mass/Vol]NegativeNegativeTrihealthRB Auto (Bld) [#/Vol]Ordered By: Gilson Castro on 17-45-1464NMI (Bld) [#/Vol]4.31 10*6/uL4.10-5.10[facility] morphologyOrdered By: Gilson Castro on 45-32-1372RQM morphology finding Nom (Bld)N/AFSumma Health Wadsworth - Rittman Medical Centererum or plasma anion gap determinationOrdered By: Gilson Castro on 16-73-8447Hznuy gap [Moles/Vol]15.2 mmol/L6.0-15.0Samaritan Hospitalerum or plasma calcium measurement (mass/volume)Ordered By: Gilson Castro on 98-15-5641Qwqewdx [Mass/Vol]8.6 mg/dL8.2-10.2FSumma Health Wadsworth - Rittman Medical Centererum or plasma chloride measurement (moles/volume)Ordered By: Gilson Castro on 70-79-8070Omcpjtac [Moles/Vol]101 mmol/I80-708GgzzlusjpSamaritan Hospitalerum or plasma glucose measurement (mass/volume)Ordered By: Gilson Castro on 99-76-6570Rigemyn [Mass/Vol]96 mg/sH47-668WzxwayitlTrihealthComment on above:ADA recommended reference range Random Glucose Reference Range is dependent on time and content of last meal. Glucose of more than 200 mg/dL in a nonstressed, ambulatory subject supports the diagnosis of Diabetes Mellitus.Serum or plasma potassium measurement (moles/volume)Ordered By: Gilson Castro on 98-25-8221Obukcrcbz [Moles/Vol]3.1 mmol/L3.5-5.1FSumma Health Wadsworth - Rittman Medical Centererum or plasma sodium measurement (moles/volume)Ordered By: Gilson Castro on 41-83-7397Yahjek [Moles/Vol]135 mmol/X101-198JkzexbufhSamaritan Hospitalerum or plasma total carbon dioxide measurement (moles/volume)Ordered By: Gilson Castro on 27-65-7035RI4 [Moles/Vol]21.9 mmol/L22.0-30.0Sam[facility]itan Hospitalerum or plasma urea nitrogen measurement (mass/volume)Ordered By: Gilson Castro on 08-20-2022 Urea nitrogen [Mass/Vol]11 mg/dL08-20Samaritan Hospitalpecific gravity Auto test strip (U) [Rel density]Ordered By: Gilson Castro on 08-20-2022 Specific gravity (U) [Rel density]1.0081.001-1.030Samaritan Hospitalquamous epithelial cells detection in urine sediment by light microscopy Ordered By: Gilson Castro on 09-19-9051Pxvlevirbl cells.squamous LM Ql (Urine sed)1-2 [HPF]0-2FPaulding County HospitalUrine bacteria detection by automated methodOrdered By: Gilson Castro on 97-67-7944Eizhlzes Auto Ql (U)None seenNone SeenTrihealthUrine clarity by refractometry automatedOrdered By: Gilson Castro on 18-61-6477Hkatqfr Refractometry automated (U)ClearCleSelect Medical Specialty Hospital - [facility], IncUrine cocaine detectionOrdered By: Gilson Castro on 65-41-7528Skdttfi Ql (U)NegativeNegSelect Medical Cleveland Clinic Rehabilitation Hospital, AvonUrine glucose measurement by automated test strip (mass/volume) Ordered By: Gilson Castro on 67-52-9585Dxcgefn Auto test strip (U) [Mass/Vol] Normal mg/dLNoTrumbull Memorial HospitalUrine hemoglobin detection by automated test stripOrdered By: Gilson Castro on 30-99-8351Zxukvchyxg Auto test strip Ql (U)NegativeNegSelect Medical Cleveland Clinic Rehabilitation Hospital, AvonUrine leukocyte esterase detection by automated test stripOrdered By: Gilson Castro on 01-59-2926Nfukpenmt esterase Auto test strip Ql (U)1+NegativeTrihealthUrobilinogen Auto test strip (U) [Mass/Vol]Ordered By: Gilson Castro on 87-92-1876Rikcmvofojig (U) [Mass/Vol]Normal mg/dLNormSelect Medical Specialty Hospital - CincinnatipH Auto test strip (U)Ordered By: Gilson Castro on 49-93-3660aB (U)7.0 [pH]5.0-9.0TrihealthAutomated erythrocytes count in urine sediment (number/area)Ordered By: Gilson Castro on 29-38-5566LLZ Auto (Urine sed) [#/Area]3-4 [HPF]0-4FPaulding County HospitalAutomated erythrocytes count in urine sediment (number/area)Ordered By: Colten Fry on 59-23-6919SII Auto (Urine sed) [#/Area]None seen [HPF]0-4 TrihealthAutomated leukocytes count in urine sediment (number/area)Ordered By: Gilson Castro on 36-20-2399PLM Auto (Urine sed) [#/Area]20-49 [HPF]0-4FPaulding County HospitalAutomated leukocytes count in urine sediment (number/area)Ordered By: Colten Fry on 25-55-6526EIB Auto (Urine sed) [#/Area]5-9 [HPF]0-4FPaulding County HospitalAutomated urine hyaline casts count (number/volume)Ordered By: Gilson Castro on 08-19-2022 Hyaline casts Auto (U) [#/Vol]None seen [LPF]0-1FPaulding County HospitalBasophils Auto (Bld) [#/Vol]Ordered By: Gilson Castro on 08-19-2022 Basophils (Bld) [#/Vol]0.0 10*3/uL0.0-0.1FPaulding County Hospital Basophils Auto (Bld) [#/Vol]Ordered By: Colten Fry on 29-70-4354Hdfamabrz (Bld) [#/Vol]0.0 10*3/uL0.0-0.1FPaulding County HospitalBasophils/100 WBC Auto (Bld)Ordered By: Gilson Castro on 86-36-9683Iayhqewew/100 WBC (Bld)0.2 %.TrihealthBasophils/100 WBC Auto (Bld)Ordered By: Colten Fry on 04-24-6566Lamwndpjr/100 WBC (Bld)0.4 %.TrihealthBilirubin Test strip Ql (U)Ordered By: Gilson Castro on 08-19-2022 Bilirubin Ql (U)NegativeNegativeTrihealthBilirubin Test strip Ql (U)Ordered By: Colten Fry on 26-73-4605Sdswnarjd Ql (U)Negative NegativeTrihealthBlood hemoglobin measurement (mass/volume)Ordered By: Gilson Castro on 40-78-1066Dcetaouzcx (Bld) [Mass/Vol] 13.2 g/dL12.0-16.0TrihealthBlood hemoglobin measurement (mass/volume)Ordered By: Colten Fry on 94-42-6889Scgyeeqgzu (Bld) [Mass/Vol] 12.8 g/dL12.0-16.0TrihealthBlood leukocytes automated count (number/volume)Ordered By: Gilson Castro on 94-77-1314XNH (Bld) [#/Vol] 15.5 10*3/uL4.5-13.5FPaulding County HospitalBlood leukocytes automated count (number/volume)Ordered By: Colten Fry on 79-88-4884FPB (Bld) [#/Vol] 13.5 10*3/uL4.5-13.5FPaulding County HospitalBody fluid albumin measurement (mass/volume)Ordered By: Gilson Castro on 31-19-5203Grnidda (Body fld) [Mass/Vol]4.0 g/dL3.2-5.5FPaulding County HospitalBody fluid albumin measurement (mass/volume)Ordered By: Colten Fry on 32-66-4936Zvvujil (Body fld) [Mass/Vol]4.5 g/dL3.2-5.5FPaulding County HospitalCOVID-19 SOFIAOrdered By: Gilson Castro on 70-50-1081LWYN-CoV+SARS-CoV-2 (COVID-19) Ag IA.rapid Ql (Resp)NegativeNegativeTrihealthComment on above:This is a duplicate Adia SARS Antigen (JOSE A) result to be used for statistical tracking purpose only.Casts typing in urine sediment by light microscopyOrdered By: Gilson Castro on 50-65-5313Ghkgy LM Nom (Urine sed)None seen [LPF]None SeenTrihealthCasts typing in urine sediment by light microscopyOrdered By: Colten Fry on 34-79-9786Fdvzq LM Nom (Urine sed)N/AFPaulding County HospitalColor Auto (U)Ordered By: Gilson Castro on 90-73-6994Dzyze (U)YellowYellowTrihealth Color Auto (U)Ordered By: Colten Fry on 30-34-5489Ckkrd (U)YellowYellow TrihealthCreatinine and Glomerular filtration rate.predicted panel (S/P/Bld)Ordered By: Gilson Castro on 54-39-3905Gmcnphiswb [Mass/Vol]0.73 mg/dL0.44-1.03TrihealthCreatinine and Glomerular filtration rate.predicted panel (S/P/Bld)Ordered By: Colten Fry on 58-24-7068Ainlppmpaq [Mass/Vol]0.82 mg/dL0.44-1.03TrihealthEosinophils Auto (Bld) [#/Vol]Ordered By: Gilson Castro on 08-19-2022 Eosinophils (Bld) [#/Vol]0.0 10*3/uL0.0-0.7FPaulding County Hospital Eosinophils Auto (Bld) [#/Vol]Ordered By: Colten Fry on 26-71-0752Fbutbgvtbhq (Bld) [#/Vol]0.0 10*3/uL0.0-0.7FPaulding County HospitalEosinophils/100 WBC Auto (Bld)Ordered By: Gilson Castro on 27-35-7009Kqyqszecjrx/100 WBC (Bld) 0.2 %.TrihealthEosinophils/100 WBC Auto (Bld)Ordered By: Colten Fry on 09-76-5320Gmozuxwckiv/100 WBC (Bld)0.0 %.TrihealthErythrocyte distribution width Auto (RBC) [Ratio]Ordered By: Gilson Castro on 25-38-7854Exykyjclcgk distribution width (RBC) [Ratio]14.4 % 11.9-15.3FPaulding County HospitalErythrocyte distribution width Auto (RBC) [Ratio]Ordered By: Colten Fry on 55-92-5158Qinoeafkklc distribution width (RBC) [Ratio]14.3 %11.9-15.3FPaulding County HospitalEstimated glomerular filtration rate (GFR) non- AmericanOrdered By: Gilson Castro on 80-25-4550NBD/1.73 sq M.predicted among non-blacks MDRD (S/P/Bld) [Vol rate/Area]> 60 mL/MinFirelands Regional Medical CenterEstimated glomerular filtration rate (GFR) non- AmericanOrdered By: Colten Fry on 70-48-3416ULB/1.73 sq M.predicted among non-blacks MDRD (S/P/Bld) [Vol rate/Area]> 60 mL/MinTrihealthGlobulin Calc (S) [Mass/Vol]Ordered By: Gilson Castro on 49-53-4220Vqehtcrc (S) [Mass/Vol]2.7 g/dL TrihealthGlobulin Calc (S) [Mass/Vol]Ordered By: Colten Fry on 12-03-9592Ksfeovxx (S) [Mass/Vol]3.0 g/dLTrihealthHCG ( test) IA.rapid Ql (U)Ordered By: Gilson Castro on 55-82-2437VAG ( test) Ql (U)NegativeTrihealth HCG ( test) IA.rapid Ql (U)Ordered By: Colten Fry on 31-38-7549BDL ( test) Ql (U)NegativeTrihealthHematocrit Auto (Bld) [Volume fraction]Ordered By: Gilson Castro on 02-98-4310Epahwvhtyi (Bld) [Volume fraction]40.6 %36.0-46.0TrihealthHematocrit Auto (Bld) [Volume fraction]Ordered By: Colten Fry on 73-67-8532Zribinkuch (Bld) [Volume fraction]39.5 %36.0-46.0TrihealthKetones Auto test strip (U) [Mass/Vol]Ordered By: Gilson Castro on 83-70-5006Tjtsbpw (U) [Mass/Vol]4+NegativeTrihealthKetones Auto test strip (U) [Mass/Vol]Ordered By: Colten Fry on 84-19-9491Pqhlqfb (U) [Mass/Vol]3+ NegativeTrihealthLaboratory - Chemistry and Chemistry - challengeOrdered By: Gilson Castro on 35-98-9883Qgcewk [Catalytic activity/Vol] 24.0 U/C16-43RakpepiiwTrihealthMagnesium [Mass/Vol]2.0 mg/dL 1.6-2.6FPaulding County HospitalLaboratory - Hematology and Cell counts Ordered By: Gilson Castro on 91-09-8498Ktrzhofcd RBC/100 WBC (Bld) [Ratio]0.1 % 0-0.5FChillicothe Hospitaltory - Hematology and Cell counts Ordered By: Colten Fry on 56-93-6237Kjmisdboi RBC/100 WBC (Bld) [Ratio]0.0 % 0-0.5FChillicothe Hospitaltory - UrinalysisOrdered By: Colten Fry on 61-85-5924Aehxatx casts LM Ql (Urine sed)None seen [LPF]0-8TrihealthLymphocytes Auto (Bld) [#/Vol]Ordered By: Gilson Castro on 54-24-0965Vwsxhbvzzwi (Bld) [#/Vol]2.3 10*3/uL1.20-4.8TrihealthLymphocytes Auto (Bld) [#/Vol]Ordered By: Colten Fry on 15-32-4376Crfhrqigkyr (Bld) [#/Vol]1.0 10*3/uL1.20-4.8TrihealthLymphocytes/100 WBC Auto (Bld)Ordered By: Gilson Castro on 08-19-2022 Lymphocytes/100 WBC (Bld)14.6 %.TrihealthLymphocytes/100 WBC Auto (Bld)Ordered By: Colten Fry on 94-27-9052Ijyudniqhfn/100 WBC (Bld) 7.3 %.[facility] Auto (RBC) [Entitic mass]Ordered By: Gilson Castro on 30-59-3753LTJ (RBC) [Entitic mass]27.9 pg25.0-35.0[facility] Auto (RBC) [Entitic mass]Ordered By: Colten Fry on 15-72-4845OVZ (RBC) [Entitic mass]27.7 pg25.0-35.0[facility] Auto (RBC) [Mass/Vol]Ordered By: Gilson Castro on 89-01-7163BLDI (RBC) [Mass/Vol]32.6 g/dL31.0-37.0[facility] HospitalHC Auto (RBC) [Mass/Vol]Ordered By: Colten Fry on 35-30-6159QTMQ (RBC) [Mass/Vol]32.3 g/dL31.0-37.0TrihealthMCV Auto (RBC) [Entitic vol] Ordered By: Gilson Castro on 43-22-3937YAF (RBC) [Entitic vol]85.6 eV70-934 TrihealthMCV Auto (RBC) [Entitic vol]Ordered By: Colten Fry on 28-28-0688JDH (RBC) [Entitic vol]85.7 jL75-799QjwteoofeTrihealthMonocytes Auto (Bld) [#/Vol]Ordered By: Gilson Castro on 42-36-4710Ylxgqjomg (Bld) [#/Vol]1.1 10*3/uL0.1-1.00TrihealthMonocytes Auto (Bld) [#/Vol]Ordered By: Colten Fry on 08-19-2022 Monocytes (Bld) [#/Vol]0.3 10*3/uL0.1-1.00[facility] Monocytes/100 WBC Auto (Bld)Ordered By: Gilson Castro on 49-85-4033Xssyovvkd/100 WBC (Bld)7.3 %.TrihealthMonocytes/100 WBC Auto (Bld) Ordered By: Colten Fry on 26-16-9357Lqintvlsg/100 WBC (Bld)2.1 %.TrihealthNeutrophils Auto (Bld) [#/Vol]Ordered By: Gilson Castro on 55-38-0038Uxnrfafcwmk (Bld) [#/Vol]12.1 10*3/uL1.2-7.7FPaulding County HospitalNeutrophils Auto (Bld) [#/Vol]Ordered By: Colten Fry on 88-07-5888Yotuqrarutw (Bld) [#/Vol]12.2 10*3/uL1.2-7.7FPaulding County HospitalNeutrophils/100 WBC Auto (Bld)Ordered By: Gilson Castro on 08-19-2022 Neutrophils/100 WBC (Bld)77.7 %.TrihealthNeutrophils/100 WBC Auto (Bld)Ordered By: Colten Fry on 32-53-8328Ncyipqhzkhz/100 WBC (Bld) 90.2 %.TrihealthNitrite Test strip Ql (U)Ordered By: Gilson Castro on 05-78-4804Nurqenr Ql (U)NegativeNegativeTrihealthNitrite Test strip Ql (U)Ordered By: Colten Fry on 08-19-2022 Nitrite Ql (U)NegativeNegSelect Medical Cleveland Clinic Rehabilitation Hospital, AvonNo Panel InformationOrdered By: Gilson Castro on 05-96-9553Nxdhacbha GFR ()> 60 mL/MinTrihealthComment on above:GFR estimated reference range: According to KDOQI guidelines, <60 ml/min/1.73m2 is sufficient todiagnose a patient with chronic kidney disease.Pharmacy Creatinine Clearance (Injm055.95[facility]> 60 mL/MinTrihealth2.0 mg/dL1.6-2.6FPaulding County Hospital24.0 U/L 22-51[facility]121.95[facility] 15.5 10*3/uL4.5-13.5FPaulding County Hospital0.1 %0-0.5FSumma Health Wadsworth - Rittman Medical CenterARS Antigen (LFIA)TrihealthNo Panel InformationOrdered By: Colten Fry on 57-46-7777Bhec seen [LPF]0-8 TrihealthEstimated GFR ()> 60 mL/Min TrihealthComment on above:GFR estimated reference range: According to KDOQI guidelines, <60 ml/min/1.73m2 is sufficient todiagnose a patient with chronic kidney disease.Pharmacy Creatinine Clearance (Fdug148.97 [facility]13.5 10*3/uL4.5-13.5FPaulding County Hospital0.0 %0-0.5FPaulding County Hospital> 60 mL/MinTrihealth106.97TrihealthPlatelet mean volume Auto (Bld) [Entitic vol]Ordered By: Gilson Castro on 82-55-0799Kjfojujj mean volume (Bld) [Entitic vol]8.8 fL6.3-10.7FPaulding County HospitalPlatelet mean volume Auto (Bld) [Entitic vol]Ordered By: Colten Fyr on 91-19-4007Rkfjsjvm mean volume (Bld) [Entitic vol]8.7 fL6.3-10.7FPaulding County Hospital Platelets Auto (Bld) [#/Vol]Ordered By: Gilson Castro on 69-72-3174Qstplpfzs (Bld) [#/Vol]314 10*3/cH708-883GpyoiupiwTrihealthPlatelets Auto (Bld) [#/Vol]Ordered By: Colten Fry on 95-45-2348Cqhbqpzkg (Bld) [#/Vol]258 10*3/wO649-136UfoqpunrcTrihealthProtein Auto test strip (U) [Mass/Vol]Ordered By: Gilson Castro on 98-53-7754Csopawm (U) [Mass/Vol]30 mg/dL NegativeTrihealthProtein Auto test strip (U) [Mass/Vol] Ordered By: Colten Fry on 56-67-9301Nhszzfn (U) [Mass/Vol]Trace mg/dLNegative TrihealthProtein [Mass/volume] in Serum or PlasmaOrdered By: Gilson Castro on 05-42-4891Fwzhfaf [Mass/Vol]6.7 g/dL6.1-7.9TrihealthProtein [Mass/volume] in Serum or PlasmaOrdered By: Colten Fry on 71-20-0170Xlqnkvf [Mass/Vol]7.5 g/dL6.1-7.9TrihealthRBC Auto (Bld) [#/Vol]Ordered By: Glison Castro on 94-85-4056GMP (Bld) [#/Vol]4.74 10*6/uL4.10-5.10TrihealthRB Auto (Bld) [#/Vol]Ordered By: Colten Fry on 63-63-5449HRJ (Bld) [#/Vol]4.60 10*6/uL4.10-5.10[facility]itan Hospitalerum or plasma alanine aminotransferase measurement without P-5'-P (enzymatic activiOrdered By: Gilson Castro on 26-37-0520FSP No additional P-5'-P [Catalytic activity/Vol]17 U/L 10-60[facility] Hospitalerum or plasma alanine aminotransferase measurement without P-5'-P (enzymatic activiOrdered By: Colten Fry on 29-10-5792WIL No additional P-5'-P [Catalytic activity/Vol]16 U/P24-60IcqmkgqvqSamaritan Hospitalerum or plasma albumin/globulin mass ratioOrdered By: Gilson Castro on 10-97-7446Xoyytmx/Globulin [Mass ratio]1.5 {ratio}[facility] Hospitalerum or plasma albumin/globulin mass ratioOrdered By: Colten Fry on 18-13-9532Mgcfopr/Globulin [Mass ratio]1.5 {ratio}[facility] Hospitalerum or plasma alkaline phosphatase measurement (enzymatic activity/volume)Ordered By: Gilson Castro on 11-38-2577EON [Catalytic activity/Vol]51 U/E87-38DdbugtaatSamaritan Hospitalerum or plasma alkaline phosphatase measurement (enzymatic activity/volume)Ordered By: Colten Fry on 41-89-9426ION [Catalytic activity/Vol]59 U/F00-50OumruzzttSamaritan Hospitalerum or plasma anion gap determinationOrdered By: Gilson Castro on 00-24-5218Wdwch gap [Moles/Vol]13.8 mmol/L6.0-15.0[facility] Hospitalerum or plasma anion gap determinationOrdered By: Colten Fry on 39-02-9220Vjgyg gap [Moles/Vol]19.5 mmol/L6.0-15.0[facility] Hospitalerum or plasma aspartate aminotransferase measurement (enzymatic activity/volume)Ordered By: Gilson Castro on 03-62-5280FME [Catalytic activity/Vol]17 U/Z13-30GzrghxaqdSamaritan Hospitalerum or plasma aspartate aminotransferase measurement (enzymatic activity/volume)Ordered By: Colten Fry on 82-08-3366QSJ [Catalytic activity/Vol]20 U/R02-89OoaejkjcaSamaritan Hospitalerum or plasma calcium measurement (mass/volume)Ordered By: Gilson Castro on 29-35-2020Qhbnkzh [Mass/Vol]9.1 mg/dL8.2-10.2FSumma Health Wadsworth - Rittman Medical Centererum or plasma calcium measurement (mass/volume)Ordered By: Colten Fry on 47-04-0108Mznuxjo [Mass/Vol]9.8 mg/dL8.2-10.2FSumma Health Wadsworth - Rittman Medical Centererum or plasma chloride measurement (moles/volume) Ordered By: Gilson Castro on 82-13-0485Hrkqfvho [Moles/Vol]104 mmol/L95-114 [facility] Hospitalerum or plasma chloride measurement (moles/volume)Ordered By: Colten Fry on 48-30-4152Dmrtdnlm [Moles/Vol]107 mmol/P27-119RivcttuxnSamaritan Hospitalerum or plasma creatinine measurement with calculation of estimated glomerular filtrOrdered By: Gilson Castro on 15-55-0610Venzyiclus and Glomerular filtration rate.predicted panel (S/P/Bld)0.73 mg/dL0.44-1.03[facility] Hospitalerum or plasma creatinine measurement with calculation of estimated glomerular filtrOrdered By: Colten Fry on 52-37-4012Tmmrpqfvuw and Glomerular filtration rate.predicted panel (S/P/Bld)0.82 mg/dL0.44-1.03[facility] Hospitalerum or plasma glucose measurement (mass/volume)Ordered By: Gilson Castro on 08-19-2022 Glucose [Mass/Vol]108 mg/dT53-266EapecexjrTrihealthComment on above:ADA recommended reference range Random Glucose [...] glucose measurement (mass/volume)Ordered By: Colten Fry on 21-16-0119Jbzqmqj [Mass/Vol]131 mg/vD57-669MkgljiwmhTrihealthComment on above:ADA recommended reference range Random Glucose [...] potassium measurement (moles/volume)Ordered By: Gilson Castro on 42-75-4620Cettnpmgi [Moles/Vol]3.1 mmol/L3.5-5.1FSumma Health Wadsworth - Rittman Medical Centererum or plasma potassium measurement (moles/volume) Ordered By: Colten Fry on 28-80-1066Clxegkasj [Moles/Vol]3.9 mmol/L3.5-5.1 [facility] Hospitalerum or plasma sodium measurement (moles/volume)Ordered By: Gilson Castro on 83-60-7895Scrrqu [Moles/Vol]138 mmol/I283-379AhjzweojnSamaritan Hospitalerum or plasma sodium measurement (moles/volume)Ordered By: Colten Fry on 64-07-4494Itgsrv [Moles/Vol]142 mmol/C297-699XfbmahynqSamaritan Hospitalerum or plasma total bilirubin measurement (mass/volume)Ordered By: Gilson Castro on 42-84-0158Hmzsyiifl [Mass/Vol]0.5 mg/dL0.3-1.2FSumma Health Wadsworth - Rittman Medical Centererum or plasma total bilirubin measurement (mass/volume)Ordered By: Colten Fry on 08-19-2022 Bilirubin [Mass/Vol]0.6 mg/dL0.3-1.2FSumma Health Wadsworth - Rittman Medical Centererum or plasma total carbon dioxide measurement (moles/volume)Ordered By: Gilson Castro on 55-85-8649YI1 [Moles/Vol]23.3 mmol/L22.0-30.0[facility] Hospitalerum or plasma total carbon dioxide measurement (moles/volume)Ordered By: Colten Fry on 21-89-1075HX4 [Moles/Vol]19.4 mmol/L22.0-30.0[facility] Hospitalerum or plasma urea nitrogen measurement (mass/volume) Ordered By: Gilson Castro on 69-86-1503Xofl nitrogen [Mass/Vol]15 mg/dL08-20 [facility] Hospitalerum or plasma urea nitrogen measurement (mass/volume)Ordered By: Colten Fry on 87-11-0456Pbqo nitrogen [Mass/Vol]14 mg/dL08-20Sam[facility]itan Hospitalpecific gravity Auto test strip (U) [Rel density]Ordered By: Gilson Castro on 25-16-8853Loomwulu gravity (U) [Rel density]1.0261.001-1.030[facility] Hospitalpecific gravity Auto test strip (U) [Rel density]Ordered By: Colten Fry on 23-70-5180Vzshzqyu gravity (U) [Rel density]1.0231.001-1.030[facility] Squamous epithelial cells detection in urine sediment by light microscopyOrdered By: Gilson Castro on 84-27-8273Lvyalotiwg cells.squamous LM Ql (Urine sed)20-30 [HPF]0-[facility] Medical Centerquamous epithelial cells detection in urine sediment by light microscopyOrdered By: Colten Fry on 08-19-2022 Epithelial cells.squamous LM Ql (Urine sed)20-30 [HPF]0-[address] [place], [place] [address]Urine bacteria detection by automated methodOrdered By: Gilson Castro on 05-40-8759Awtyptay Auto Ql (U)2+None [facility] YoungstownUrine bacteria detection by automated methodOrdered By: Colten Fry on 34-15-1908Zalhgioh Auto Ql (U)1+None [facility] YoungstownUrine clarity by refractometry automatedOrdered By: Gilson Castro on 75-47-7404Nmjnixc Refractometry automated (U)TurbidCleSelect Medical Specialty Hospital - [facility], IncUrine clarity by refractometry automatedOrdered By: Colten Fry on 14-38-9217Tvkgqzz Refractometry automated (U)CloudyCleSelect Medical Specialty Hospital - [place], IncUrine glucose measurement by automated test strip (mass/volume)Ordered By: Gilson Castro on 31-27-4881Gzhdcvl Auto test strip (U) [Mass/Vol]Normal mg/dLHocking Valley Community HospitalUrine glucose measurement by automated test strip (mass/volume)Ordered By: Colten Fry on [id number] Auto test strip (U) [Mass/Vol]Normal mg/dLCleveland Clinic Medina HospitalUrine hemoglobin detection by automated test stripOrdered By: Gilson Castro on 36-38-0698Uaqxahcjum Auto test strip Ql (U)NegativeNegativeTrihealthUrine hemoglobin detection by automated test stripOrdered By: Colten Fry on [id number] Auto test strip Ql (U)NegativeNegative TrihealthUrine leukocyte esterase detection by automated test stripOrdered By: Gilson Castro on 61-24-3889Aqvzsvwxo esterase Auto test strip Ql (U)2+NegativeTrihealthUrine leukocyte esterase detection by automated test stripOrdered By: Colten Fry on 08-19-2022 Leukocyte esterase Auto test strip Ql (U)1+NegativeTrihealthUrobilinogen Auto test strip (U) [Mass/Vol]Ordered By: Gilson Castro on 91-53-7905Dssgqcwszjye (U) [Mass/Vol]Normal mg/dLNormSelect Medical Specialty Hospital - CincinnatiUrobilinogen Auto test strip (U) [Mass/Vol]Ordered By: Colten Fry on 57-94-6398Vevsplmtpdgq (U) [Mass/Vol]Normal mg/dLNormSelect Medical Specialty Hospital - CincinnatipH Auto test strip (U)Ordered By: Gilson Castro on 16-33-9183qW (U)8.0 [pH]5.0-9.0TrihealthpH Auto test strip (U)Ordered By: Colten Fry on 36-75-9601eK (U)6.0 [pH]5.0-9.0TrihealthCOVID-19 SOFIAOrdered By: Joss Rivera on 08-18-2022 SARS-CoV+SARS-CoV-2 (COVID-19) Ag IA.rapid Ql (Resp)NegativeNegativeTrihealthComment on above:This is a duplicate Adia SARS Antigen (JOSE A) result to be used for statistical tracking purpose only.No Panel InformationOrdered By: Joss Rivera on 26-77-2468USVP Antigen (LFIA)TrihealthBasophils Auto (Bld) [#/Vol]Ordered By: Modesta Chand on 26-58-4692Hcdxxsvub (Bld) [#/Vol]0.1 10*3/uL0.0-0.1FPaulding County HospitalBasophils/100 WBC Auto (Bld)Ordered By: Modesta Chand on 82-76-4185Wnltcxfgc/100 WBC (Bld)1.2 %.TrihealthBlood hemoglobin measurement (mass/volume)Ordered By: Modesta Chand on 86-76-5690Gechxmmmkn (Bld) [Mass/Vol]13.8 g/dL12.0-16.0TrihealthBlood leukocytes automated count (number/volume)Ordered By: Modesta Chand on 80-32-4482VCQ (Bld) [#/Vol]7.9 10*3/uL4.5-13.5FPaulding County HospitalBody fluid albumin measurement (mass/volume)Ordered By: Modesta Chand on 74-49-6467Ngoorty (Body fld) [Mass/Vol]4.5 g/dL3.2-5.5 TrihealthCT biopsyOrdered By: Modesta Chand on 16-17-8445Bzqxbfsstye [Mass/Vol]328 mg/qA136-218OhonlpdzwTrihealthCreatinine and Glomerular filtration rate.predicted panel (S/P/Bld)Ordered By: Modesta Chand on 74-40-0900Budcxmofxm [Mass/Vol]0.67 mg/dL0.44-1.03 TrihealthEosinophils Auto (Bld) [#/Vol]Ordered By: Modesta Chand on 41-47-7467Hnwkvodrsci (Bld) [#/Vol]0.6 10*3/uL0.0-0.7 TrihealthEosinophils/100 WBC Auto (Bld)Ordered By: Modesta Chand on 18-66-3388Zrxlemjtdex/100 WBC (Bld)7.2 %.TrihealthErythrocyte distribution width Auto (RBC) [Ratio]Ordered By: Modesta Chand on 29-43-4560Ezawlyegbtt distribution width (RBC) [Ratio]13.6 %11.9-15.3FPaulding County HospitalEstimated glomerular filtration rate (GFR) non- AmericanOrdered By: Modesta Chand on 78-84-3455NAE/1.73 sq M.predicted among non-blacks MDRD (S/P/Bld) [Vol rate/Area]> 60 mL/MinTrihealthFerritin [Mass/volume] in Serum or PlasmaOrdered By: Modesta Chand on 63-40-8442Nvbcpyzh [Mass/Vol] 28.5 ng/gF01-539.8TrihealthGlobulin Calc (S) [Mass/Vol] Ordered By: Modesta Chand on 67-06-9808Jjkkabaz (S) [Mass/Vol]2.5 g/dL TrihealthHematocrit Auto (Bld) [Volume fraction]Ordered By: Modesta Chand on 86-30-6197Nsrkuvwmjz (Bld) [Volume fraction]42.3 % 36.0-46.0TrihealthIron [Mass/volume] in Serum or Plasma Ordered By: Modesta Chand on 47-64-6866Prhl [Mass/Vol]52 ug/gA70-313 TrihealthIron binding capacity [Mass/volume] in Serum or PlasmaOrdered By: Modesta Chand on 74-63-4942Luvv binding capacity [Mass/Vol]459 ug/lQ258-732AkwolnkzoTrihealthIron saturation [Mass Fraction] in Serum or PlasmaOrdered By: Modesta Chand on 25-89-9531Kcfc saturation [Mass fraction]11.0 %20-50TrihealthLaboratory - Hematology and Cell countsOrdered By: Modesta Chand on 06-25-2022 Nucleated RBC/100 WBC (Bld) [Ratio]0.0 %0-0.5FPaulding County Hospital Lymphocytes Auto (Bld) [#/Vol]Ordered By: Modesta Chand on 06-25-2022 Lymphocytes (Bld) [#/Vol]2.1 10*3/uL1.20-4.8[facility] Lymphocytes/100 WBC Auto (Bld)Ordered By: Modesta Chand on 06-25-2022 Lymphocytes/100 WBC (Bld)26.9 %.[facility] Auto (RBC) [Entitic mass]Ordered By: Modesta Chand on 32-53-9212EQN (RBC) [Entitic mass]28.1 pg25.0-35.0[facility]healthMC Auto (RBC) [Mass/Vol] Ordered By: Modesta Chand on 88-30-0077KPZH (RBC) [Mass/Vol]32.7 g/dL 31.0-37.0TrihealthMCV Auto (RBC) [Entitic vol]Ordered By: Modesta Chand on 39-59-4502UGR (RBC) [Entitic vol]85.8 aC62-088 TrihealthMonocytes Auto (Bld) [#/Vol]Ordered By: Modesta Chand on 15-60-6778Vttxlepmf (Bld) [#/Vol]0.6 10*3/uL0.1-1.00 TrihealthMonocytes/100 WBC Auto (Bld)Ordered By: Modesta Chand on 00-43-0477Snfnunhpp/100 WBC (Bld)7.2 %.TrihealthNeutrophils Auto (Bld) [#/Vol]Ordered By: Modesta Chand on 20-55-6180Nwzgcttpybr (Bld) [#/Vol]4.5 10*3/uL1.2-7.7FPaulding County HospitalNeutrophils/100 WBC Auto (Bld)Ordered By: Modesta Chand on 12-76-8010Xukzfvcuzpn/100 WBC (Bld)57.5 %.TrihealthNo Panel InformationOrdered By: Modesta Chand on 31-33-100357923188-Dojqhme Vitamin D Total35.9 ng/dO42-875HdzwomyfdTrihealthComment on above: VITAMIN D STATUS 25(OH)VITAMIN D RANGE (ng/mL) Deficient <20 Insufficient 20 to <30 Sufficient 30 to 100 Reference: Danica MF,Chayo NC, Sony GUERRERO, et al. Evaluation,treatment, and prevention of vitamin D deficiency; an Endocrine Society clinical practice guideline. JCEM. 2010; 96(7):1911-30.Absolute Reticulocyte Count0.066 10*6/uL0.024-0.084[facility] Estimated GFR ()> 60 mL/MinTrihealth Comment on above:GFR estimated reference range: According to KDOQI guidelines, <60 ml/min/1.73m2 is sufficient todiagnose a patient with chronic kidney disease.Percent Reticulocyte Count1.3 %0.5-1.5FPaulding County Hospital [facility] Creatinine Clearance (ChemN/AFPaulding County HospitalPlatelet mean volume Auto (Bld) [Entitic vol]Ordered By: Modesta Chand on 63-32-1241Pfkckhvm mean volume (Bld) [Entitic vol]9.0 fL6.3-10.7FPaulding County HospitalPlatelets Auto (Bld) [#/Vol]Ordered By: Modesta Chand on 51-99-4516Lzyinjjgb (Bld) [#/Vol]263 10*3/jL748-319RzwqsbkmyTrihealthProtein [Mass/volume] in Serum or PlasmaOrdered By: Modesta Chand on 65-21-7975Mnqnikg [Mass/Vol]7.0 g/dL6.1-7.9TrihealthRBC Auto (Bld) [#/Vol]Ordered By: Modesta Chand on 08-26-0892RZQ (Bld) [#/Vol]4.94 10*6/uL4.10-5.10Samaritan Hospitalerum or plasma alanine aminotransferase measurement without P-5'-P (enzymatic activiOrdered By: Modesta Chand on 70-14-6342WTJ No additional P-5'-P [Catalytic activity/Vol]18 U/A58-14FaxhlpaejSamaritan Hospitalerum or plasma albumin/globulin mass ratioOrdered By: Modesta Chand on 22-88-1060Mrvhpwq/Globulin [Mass ratio]1.8 {ratio}[facility] Hospitalerum or plasma alkaline phosphatase measurement (enzymatic activity/volume)Ordered By: Modesta Chand on 14-63-5625SNG [Catalytic activity/Vol]65 U/T58-89HdytghxslSamaritan Hospitalerum or plasma aspartate aminotransferase measurement (enzymatic activity/volume)Ordered By: Modesta Chand on 00-71-4926PIG [Catalytic activity/Vol]18 U/L10-42 [facility] Hospitalerum or plasma calcium measurement (mass/volume)Ordered By: Modesta Chand on 35-85-9425Vkqellr [Mass/Vol]10.2 mg/dL8.2-10.2FSumma Health Wadsworth - Rittman Medical Centererum or plasma chloride measurement (moles/volume)Ordered By: Modesta Chand on 57-86-7589Nmfihvvy [Moles/Vol]102 mmol/M30-495YkcozsgstSamaritan Hospitalerum or plasma glucose measurement (mass/volume)Ordered By: Modesta Chand on 06-25-2022 Glucose [Mass/Vol]87 mg/aK69-430LrslqiyfqTrihealthComment on above:ADA recommended reference range Random Glucose Reference Range is dependent on time and content of last meal. Glucose of more than 200 mg/dL in a nonstressed, ambulatory subject supports the diagnosis of Diabetes Mellitus.Serum or plasma potassium measurement (moles/volume)Ordered By: Modesta Chand on 47-22-7949Uvxddzaqb [Moles/Vol] 4.4 mmol/L3.5-5.1FSumma Health Wadsworth - Rittman Medical Centererum or plasma sodium measurement (moles/volume)Ordered By: Modesta Chand on 84-79-8210Lhskrp [Moles/Vol]137 mmol/Q176-884QtkmyfxlnSamaritan Hospitalerum or plasma total bilirubin measurement (mass/volume)Ordered By: Modesta Chand on 11-14-9153Dspqeakou [Mass/Vol]0.4 mg/dL0.3-1.2FPaulding County Hospital Serum or plasma total carbon dioxide measurement (moles/volume)Ordered By: Modesta Chand on 24-07-0110MP6 [Moles/Vol]23.8 mmol/L22.0-30.0[facility] Hospitalerum or plasma urea nitrogen measurement (mass/volume) Ordered By: Modesta Chand on 81-16-4976Dwel nitrogen [Mass/Vol]14 mg/dL 9-23TrihealthTS DL <= 0.005 mIU/L QnOrdered By: Modesta Chand on 85-10-3673LTQ Qn1.05 m[IU]/L0.45-5.33TrihealthThyroxine (T4) free [Mass/volume] in Serum or PlasmaOrdered By: Modesta Chand on 83-46-4290Noty T4 [Mass/Vol]0.74 ng/dL0.61-1.12TrihealthHCG ( test) IA.rapid Ql (U)Ordered By: Brennen Britt on 94-25-5631LFI ( test) Ql (U)NegativeTrihealthCOVID-19 Positive/NegativeOrdered By: Brennen Britt on 06-07-2022 SARS-CoV-2 (COVID-19) N gene JANAK+probe Ql (Resp)NegativeNegativeTrihealthComment on above:Testing for SARS-CoV-2 by RT-PCR This test was developed and its performance characteristics determined by [employer] and validated at the [facility]. This test has not been FDA cleared [...] Serum or PlasmaOrdered By: Modesta Chand on 17-29-5197Dvujbrq [Mass/Vol]3.9 g/dL3.2-5.5FPaulding County HospitalBasophils Auto (Bld) [#/Vol]Ordered By: Modesta Chand on 64-29-2572Egrucxkqr (Bld) [#/Vol]0.1 10*3/uL0.0-0.1FPaulding County HospitalBasophils/100 WBC Auto (Bld)Ordered By: Modesta Chand on 75-31-7706Cgianxyqa/100 WBC (Bld)1.1 %.TrihealthBlood hemoglobin measurement (mass/volume)Ordered By: Modesta Chand on 72-46-8332Artsylagcq (Bld) [Mass/Vol]13.6 g/dL12.0-16.0TrihealthBlood leukocytes automated count (number/volume)Ordered By: Modesta Chand on 05-30-6738NLA (Bld) [#/Vol]10.6 10*3/uL4.5-13.5FPaulding County HospitalC reactive protein [Mass/volume] in Serum or Plasma Ordered By: Modesta Chand on 20-46-9067THK [Mass/Vol]0.6 mg/dL0.0-1.0 TrihealthCT biopsyOrdered By: Modesta Chand on 85-11-3578Vugksxowbsy [Mass/Vol]292 mg/eX313-392TrngaotrxTrihealthCreatinine and Glomerular filtration rate.predicted panel (S/P/Bld)Ordered By: Modesta Chand on 56-72-0598Fexapupbtt [Mass/Vol]0.63 mg/dL0.44-1.03 TrihealthEosinophils Auto (Bld) [#/Vol]Ordered By: Modesta Chand on 55-93-6338Eimfeqxorzs (Bld) [#/Vol]0.4 10*3/uL0.0-0.7 TrihealthEosinophils/100 WBC Auto (Bld)Ordered By: Modesta Chand on 41-12-8976Lpjhiynksyu/100 WBC (Bld)3.6 %.TrihealthErythrocyte distribution width Auto (RBC) [Ratio]Ordered By: Modesta Chand on 74-89-8803Xxegrdlgems distribution width (RBC) [Ratio]13.7 %11.9-15.3FPaulding County HospitalErythrocyte sedimentation rate by Photometric methodOrdered By: Modesta Chand on 01-01-0551NZQ Photometric method (Bld) [Velocity]5 mm/hr0-19[facility] Estimated glomerular filtration rate (GFR) non- AmericanOrdered By: Modesta Chand on 44-36-8826AWI/1.73 sq M.predicted among non-blacks MDRD (S/P/Bld) [Vol rate/Area]> 60 mL/MinTrihealthFerritin [Mass/volume] in Serum or PlasmaOrdered By: Modesta Chand on 05-26-2022 Ferritin [Mass/Vol]14.2 ng/vX42-125.8TrihealthFolate [Mass/volume] in Serum or PlasmaOrdered By: Modesta Chand on 05-26-2022 Folate [Mass/Vol]13.0 ng/mL>5.9TrihealthComment on above:Folate reference range: >5.9 ng/ml The WHO technical consultation on folate and vitamin b12 deficiencies has determined that folate concentrations less than 4 ng/ml are considered deficient.Globulin Calc (S) [Mass/Vol]Ordered By: Modesta Chand on 47-63-7177Klkgxanr (S) [Mass/Vol]2.3 g/dLTrihealthGlucose mean value [Mass/volume] in Blood Estimated from glycated hemoglobinOrdered By: Modesta Chand on 53-53-4853Gjigwkm glucose Estimated from glycated hemoglobin (Bld) [Mass/Vol]111 mg/dLTrihealthHematocrit Auto (Bld) [Volume fraction]Ordered By: Modesta Chand on 59-07-8782Yurfflnfct (Bld) [Volume fraction]41.4 %36.0-46.0 TrihealthHemoglobin A1c percentageOrdered By: Modesta Chand on 69-93-0395XhS5y (Bld) [Mass fraction]5.5 %4.3-5.6FPaulding County HospitalComment on above:Increased risk for diabetes: 5.7 - 6.4 diabetes: >6.4 glycemic control for adults with diabetes: <7.0Iron [Mass/volume] in Serum or PlasmaOrdered By: Modesta Cahnd on 53-04-9170Paxy [Mass/Vol]63 ug/qJ60-414 TrihealthIron binding capacity [Mass/volume] in Serum or PlasmaOrdered By: Modesta Chand on 13-09-6633Qsfk binding capacity [Mass/Vol]409 ug/rU067-157AbzzhxikpTrihealthIron saturation [Mass Fraction] in Serum or PlasmaOrdered By: Modesta Chand on 37-57-6337Hugm saturation [Mass fraction]15.0 %20-50TrihealthLaboratory - Chemistry and Chemistry - challengeOrdered By: Modesta Chand on 54-17-8238Brrhmwuzo (Vitamin B12) [Mass/Vol]329 pg/mY040-888XeubuidvmTrihealthLaboratory - Hematology and Cell countsOrdered By: Modesta Chand on 21-41-8322Rswobutbr RBC/100 WBC (Bld) [Ratio]0.0 %0-0.5FPaulding County HospitalLymphocytes Auto (Bld) [#/Vol]Ordered By: Modesta Chand on 63-13-6124Ibultnqdfhp (Bld) [#/Vol]2.3 10*3/uL1.20-4.8TrihealthLymphocytes/100 WBC Auto (Bld)Ordered By: Modesta Chand on 37-53-2348Qnljadcxibt/100 WBC (Bld)21.6 %.TrihealthMCH Auto (RBC) [Entitic mass]Ordered By: Modesta Chand on 53-71-0611NOO (RBC) [Entitic mass]28.6 pg25.0-35.0TrihealthMCHC Auto (RBC) [Mass/Vol]Ordered By: Modesta Chand on 05-26-2022 MCHC (RBC) [Mass/Vol]33.0 g/dL31.0-37.0TrihealthMCV Auto (RBC) [Entitic vol]Ordered By: Modesta Chand on 62-22-8564GMO (RBC) [Entitic vol]86.6 mA17-407OhtdbnuurTrihealthMonocytes Auto (Bld) [#/Vol]Ordered By: Modesta Chand on 70-09-7738Bxotxcaky (Bld) [#/Vol]0.6 10*3/uL0.1-1.00TrihealthMonocytes/100 WBC Auto (Bld) Ordered By: Modesta Chand on 21-00-2742Cchnhclps/100 WBC (Bld)5.9 %. TrihealthNeutrophils Auto (Bld) [#/Vol]Ordered By: Modesta Chand on 66-54-4471Nlluunkvvlm (Bld) [#/Vol]7.2 10*3/uL1.2-7.7 TrihealthNeutrophils/100 WBC Auto (Bld)Ordered By: Modesta Chand on 55-13-0767Lmailuyxkuc/100 WBC (Bld)67.8 %.TrihealthNo Panel InformationOrdered By: Modesta Chand on 04-38-658928615585-Enitgfj Vitamin D Total26.9 ng/qW00-046ExwpkviwbTrihealthComment on above:VITAMIN D STATUS 25(OH)VITAMIN D RANGE (ng/mL) Deficient <20 Insufficient 20 to <30 Sufficient 30 to 100 Reference: Danica MF,Chayo WOODRUFF, Sony GUERRERO, et al. Evaluation,treatment, and prevention of vitamin D deficiency; an Endocrine Society clinical practice guideline. JCEM. 2010; 96(7):1911-30.Estimated GFR ()> 60 mL/MinTrihealthComment on above: GFR estimated reference range: According to KDOQI guidelines, <60 ml/min/1.73m2 is sufficient todiagnose a patient with chronic kidney disease.Pharmacy Creatinine Clearance (ChemN/AFPaulding County HospitalPlatelet mean volume Auto (Bld) [Entitic vol]Ordered By: Modesta Chand on 05-26-2022 Platelet mean volume (Bld) [Entitic vol]8.9 fL6.3-10.7FPaulding County HospitalPlatelets Auto (Bld) [#/Vol]Ordered By: Modesta Chand on 05-26-2022 Platelets (Bld) [#/Vol]286 10*3/hR142-821TcpmjqomoTrihealth Protein [Mass/volume] in Serum or PlasmaOrdered By: Modesta Chand on 58-42-9696Hydwmmv [Mass/Vol]6.2 g/dL6.1-7.9TrihealthRBC Auto (Bld) [#/Vol]Ordered By: Modesta Chand on 28-12-5649ZQM (Bld) [#/Vol] 4.78 10*6/uL4.10-5.10[facility] Hospitalerum nuclear antibody titerOrdered By: Modesta Chand on 83-15-0329Eymianh Ab (S) [Titer]Negative .TrihealthComment on above:Negative <1:80 Borderline 1:80 Positive >1:80 ICAP nomenclature: AC-0 For more information about Hep-2 cell patterns use ANApatterns.org, the official website for the International Consensus on Antinuclear Antibody (EDMOND) Patterns (ICAP). Performed at: [employer] [id number] [employer] Coordinator: James Nelson PhD, Phone: [phone] or plasma alanine aminotransferase measurement without P-5'-P (enzymatic activiOrdered By: Modesta Chand on 88-86-4457MMZ No additional P-5'-P [Catalytic activity/Vol]50 U/C68-66KmfwgdmcrSamaritan Hospitalerum or plasma albumin/globulin mass ratioOrdered By: Modesta Chand on 05-26-2022 Albumin/Globulin [Mass ratio]1.7 {ratio}[facility] Hospitalerum or plasma alkaline phosphatase measurement (enzymatic activity/volume)Ordered By: Modesta Chand on 40-91-2804PGW [Catalytic activity/Vol]58 U/L32-92 [facility] Hospitalerum or plasma aspartate aminotransferase measurement (enzymatic activity/volume)Ordered By: Modesta Chand on 46-93-9730XMX [Catalytic activity/Vol]25 U/J66-25ZhbtdmrjtSamaritan Hospitalerum or plasma calcium measurement (mass/volume)Ordered By: Modesta Chand on 71-58-1005Rvoqowj [Mass/Vol]9.3 mg/dL8.2-10.2FSumma Health Wadsworth - Rittman Medical Centererum or plasma chloride measurement (moles/volume)Ordered By: Mdoesta Chand on 79-97-4045Jzvokcdv [Moles/Vol]103 mmol/I84-711RlzxznzkxSamaritan Hospitalerum or plasma glucose measurement (mass/volume)Ordered By: Modesta Chand on 12-20-1729Kaehwwk [Mass/Vol]111 mg/wM61-148VxkxclqbuTrihealthComment on above:ADA recommended reference range Random Glucose Reference Range is dependent on time and content of last meal. Glucose of more than 200 mg/dL in a nonstressed, ambulatory subject supports the diagnosis of Diabetes Mellitus.Serum or plasma potassium measurement (moles/volume)Ordered By: Modesta Chand on 33-63-6096Aoweaniwp [Moles/Vol] 4.3 mmol/L3.5-5.1FSumma Health Wadsworth - Rittman Medical Centererum or plasma sodium measurement (moles/volume)Ordered By: Modesta Chand on 03-27-4159Xsgloy [Moles/Vol]137 mmol/U485-444DcratbljwSamaritan Hospitalerum or plasma total bilirubin measurement (mass/volume)Ordered By: Modesta Chand on 28-75-1784Hqsijakie [Mass/Vol]0.5 mg/dL0.3-1.2FPaulding County Hospital Serum or plasma total carbon dioxide measurement (moles/volume)Ordered By: Modesta Chand on 62-92-9626YE1 [Moles/Vol]24.9 mmol/L22.0-30.0[facility] Hospitalerum or plasma urea nitrogen measurement (mass/volume) Ordered By: Modesta Chand on 68-81-0789Arxq nitrogen [Mass/Vol]9 mg/dL9-23 TrihealthUrine culture routineOrdered By: Gilson Castro on 41-57-7400Xcsjkcmf identified Cx Nom (U)2 DaysTrihealthAmphetamine Screen Ql (U)Ordered By: Gilson Castro on 05-16-2022 Amphetamines Ql (U)NegativeNegativeTrihealthAutomated erythrocytes count in urine sediment (number/area)Ordered By: Gilson Castro on 44-00-5198LHS Auto (Urine sed) [#/Area]3-4 [HPF]0-4FPaulding County HospitalAutomated leukocytes count in urine sediment (number/area)Ordered By: Gilson Castro on 17-61-3421JRI Auto (Urine sed) [#/Area]5-9 [HPF]0-4FPaulding County HospitalAutomated urine hyaline casts count (number/volume) Ordered By: Gilson Castro on 38-96-0333Krpghxb casts Auto (U) [#/Vol]None seen [LPF]0-1FPaulding County HospitalBarbiturates [Presence] in UrineOrdered By: Gilson Castro on 09-22-9457Rlwjndvhzeag Ql (U)PositiveNegSelect Medical Cleveland Clinic Rehabilitation [facility], AvonBasophils Auto (Bld) [#/Vol]Ordered By: Gilson Castro on 14-82-8432Okdzqnnej (Bld) [#/Vol]0.0 10*3/uL0.0-0.1FPaulding County HospitalBasophils/100 WBC Auto (Bld)Ordered By: Gilson Castro on 05-16-2022 Basophils/100 WBC (Bld)0.4 %.TrihealthBenzodiazepines [Presence] in UrineOrdered By: Gilson Castro on 12-05-0257Pvvjvkxhugcgbmb Ql (U) NegativeNegSelect Medical Cleveland Clinic Rehabilitation Hospital, AvonBilirubin Test strip Ql (U) Ordered By: Gilson Castro on 16-68-1441Gfqrvbusu Ql (U)NegativeNegSelect Medical Cleveland Clinic Rehabilitation Hospital, AvonBlood hemoglobin measurement (mass/volume)Ordered By: Gilson Castro on 21-58-3269Tprkbkddvp (Bld) [Mass/Vol]13.4 g/dL12.0-16.0 [facility]healthBlood leukocytes automated count (number/volume)Ordered By: Gilson Castro on 35-72-9209XKM (Bld) [#/Vol]10.0 10*3/uL4.5-13.5FPaulding County HospitalBody fluid albumin measurement (mass/volume)Ordered By: Gilson Castro on 26-52-6233Qkrlxoa (Body fld) [Mass/Vol]4.3 g/dL3.2-5.5FPaulding County HospitalCannabinoids [Presence] in Urine by Screen methodOrdered By: Gilson Castro on 05-16-2022 Cannabinoids Screen Ql (U)PositiveNegSelect Medical Cleveland Clinic [facility], [place] Comment on above:These are unconfirmed results and should not be used for legal purposes. Drug Cut-Off Concentration: AMPH 1000 ng/mL NIKOLAS 200 ng/mL SHRAVAN 200 ng/mL COCM 300 ng/mL OP 300 ng/mL PCP 25 ng/mL THC 20 ng/mLCasts typing in urine sediment by light microscopyOrdered By: Gilson Castro on 72-55-6878Runbi LM Nom (Urine sed)None seen [LPF]None SeenTrihealthColor Auto (U)Ordered By: Gilson Castro on 05-16-2022 Color (U)YellowYellowTrihealthCreatinine and Glomerular filtration rate.predicted panel (S/P/Bld)Ordered By: Gilson Castro on 05-16-2022 Creatinine [Mass/Vol]0.80 mg/dL0.44-1.03[facility] Eosinophils Auto (Bld) [#/Vol]Ordered By: Gilson Castro on 93-01-7928Laaqjvhzuwk (Bld) [#/Vol]0.1 10*3/uL0.0-0.7FPaulding County HospitalEosinophils/100 WBC Auto (Bld)Ordered By: Gilson Castro on 55-02-6955Rorhefrdpzk/100 WBC (Bld) 0.7 %.TrihealthErythrocyte distribution width Auto (RBC) [Ratio]Ordered By: Gilson Castro on 91-91-9397Yjhvmfuvknh distribution width (RBC) [Ratio]13.4 %11.9-15.3FPaulding County HospitalEstimated glomerular filtration rate (GFR) non- AmericanOrdered By: Gilson Castro on 96-10-6796YOT/1.73 sq M.predicted among non-blacks MDRD (S/P/Bld) [Vol rate/Area]> 60 mL/MinTrihealthGlobulin Calc (S) [Mass/Vol]Ordered By: Gilson Castro on 22-02-2204Jcgtsdys (S) [Mass/Vol]2.7 g/dL TrihealthHCG ( test) IA.rapid Ql (U)Ordered By: Gilson Castro on 02-61-4822KYI ( test) Ql (U)NegativeTrihealthHematocrit Auto (Bld) [Volume fraction]Ordered By: Gilson Castro on 71-52-1443Nozwrpluua (Bld) [Volume fraction]39.4 %36.0-46.0TrihealthKetones Auto test strip (U) [Mass/Vol]Ordered By: Gilson Castro on 44-68-3393Gnvtppp (U) [Mass/Vol]3+NegativeTrihealthLaboratory - Chemistry and Chemistry - challengeOrdered By: Gilson Castro on 46-36-9245Dcfxih [Catalytic activity/Vol]26.0 U/D48-97QipshkpszTrihealthLaboratory - Drug toxicologyOrdered By: Gilson Castro on 88-88-6325Rvaakfy Ql (U)NegativeNegativeTrihealth Laboratory - Hematology and Cell countsOrdered By: Gilson Castro on 05-16-2022 Nucleated RBC/100 WBC (Bld) [Ratio]0.0 %0-0.5FPaulding County Hospital Lymphocytes Auto (Bld) [#/Vol]Ordered By: Gilson Castro on 21-65-6265Yndfllriflr (Bld) [#/Vol]1.9 10*3/uL1.20-4.8[facility] Lymphocytes/100 WBC Auto (Bld)Ordered By: Gilson Castro on 05-16-2022 Lymphocytes/100 WBC (Bld)18.7 %.[facility] Auto (RBC) [Entitic mass]Ordered By: Gilson Castro on 55-76-4181EJT (RBC) [Entitic mass] 28.6 pg25.0-35.0TrihealthMCHC Auto (RBC) [Mass/Vol] Ordered By: Gilson Castro on 19-44-2742DDYV (RBC) [Mass/Vol]34.1 g/dL31.0-37.0 [facility]MCV Auto (RBC) [Entitic vol]Ordered By: Gilson Castro on 86-13-2633BUK (RBC) [Entitic vol]84.0 gK11-223RxizrfkxfTrihealthMonocytes Auto (Bld) [#/Vol]Ordered By: Gilson Castro on 06-04-0220Jkkefzdog (Bld) [#/Vol]0.9 10*3/uL0.1-1.00TrihealthMonocytes/100 WBC Auto (Bld)Ordered By: Gilson Castro on 05-16-2022 Monocytes/100 WBC (Bld)9.2 %.TrihealthNeutrophils Auto (Bld) [#/Vol]Ordered By: Gilson Castro on 69-17-5061Barccdmaorn (Bld) [#/Vol]7.1 10*3/uL1.2-7.7FPaulding County HospitalNeutrophils/100 WBC Auto (Bld) Ordered By: Gilson Castro on 55-99-4141Bhlnidyttjq/100 WBC (Bld)71.0 %.TrihealthNitrite Test strip Ql (U)Ordered By: Gilson Castro on 15-30-3510Dscjfuk Ql (U)NegativeNegativeTrihealthNo Panel InformationOrdered By: Gilson Castro on 91-51-9071Bvwptnpzz GFR ()> 60 mL/MinTrihealthComment on above:GFR estimated reference range: According to KDOQI guidelines, <60 ml/min/1.73m2 is sufficient todiagnose a patient with chronic kidney disease.Pharmacy Creatinine Clearance (Awpw447.65TrihealthPhencyclidine Screen Ql (U)Ordered By: Gilson Castro on 95-73-3688Gdjtppsabiuwj Ql (U)NegativeNegative TrihealthPlatelet mean volume Auto (Bld) [Entitic vol] Ordered By: Gilson Castro on 65-59-4858Ibwnuqev mean volume (Bld) [Entitic vol] 8.5 fL6.3-10.7FPaulding County HospitalPlatelets Auto (Bld) [#/Vol] Ordered By: Gilson Castro on 01-88-9338Vnpinbdoo (Bld) [#/Vol]241 10*3/cN463-185 [facility]healthProtein Auto test strip (U) [Mass/Vol]Ordered By: Gilson Castro on 86-20-0052Ounknwc (U) [Mass/Vol]Trace mg/dLNegative TrihealthProtein [Mass/volume] in Serum or PlasmaOrdered By: Gilson Castro on 69-45-9147Igsxpky [Mass/Vol]7.0 g/dL6.1-7.9TrihealthRBC Auto (Bld) [#/Vol]Ordered By: Gilson Castro on 19-22-8475CBX (Bld) [#/Vol]4.69 10*6/uL4.10-5.10[facility]itan Hospitalerum or plasma alanine aminotransferase measurement without P-5'-P (enzymatic activiOrdered By: Gilson Castro on 20-82-1971PTT No additional P-5'-P [Catalytic activity/Vol]23 U/X08-12HwzkfxjklSamaritan Hospitalerum or plasma albumin/globulin mass ratioOrdered By: Gilson Castro on 05-16-2022 Albumin/Globulin [Mass ratio]1.6 {ratio}[facility] Hospitalerum or plasma alkaline phosphatase measurement (enzymatic activity/volume)Ordered By: Gilson Castro on 45-50-2038VXO [Catalytic activity/Vol]58 U/S72-26JzlywtuzaSamaritan Hospitalerum or plasma aspartate aminotransferase measurement (enzymatic activity/volume)Ordered By: Gilson Castro on 31-10-8868XCQ [Catalytic activity/Vol]22 U/A50-81KxiyunegcSamaritan Hospitalerum or plasma calcium measurement (mass/volume)Ordered By: Gilson Castro on 79-01-0753Qegdfrt [Mass/Vol]9.2 mg/dL8.2-10.2FSumma Health Wadsworth - Rittman Medical Centererum or plasma chloride measurement (moles/volume)Ordered By: Gilson Castro on 05-16-2022 Chloride [Moles/Vol]97 mmol/L52-088CbfuuwuaeSamaritan Hospitalerum or plasma glucose measurement (mass/volume)Ordered By: Gilson Castro on 05-16-2022 Glucose [Mass/Vol]90 mg/qX76-432VjkooltyuTrihealthComment on above:ADA recommended reference range Random Glucose Reference Range is dependent on time and content of last meal. Glucose of more than 200 mg/dL in a nonstressed, ambulatory subject supports the diagnosis of Diabetes Mellitus.Serum or plasma potassium measurement (moles/volume)Ordered By: Gilson Castro on 76-34-3744Gyaruoors [Moles/Vol]3.2 mmol/L3.5-5.1FSumma Health Wadsworth - Rittman Medical Centererum or plasma sodium measurement (moles/volume)Ordered By: Gilson Castro on 71-85-5892Amsvgp [Moles/Vol]135 mmol/F041-634UnnbxhwhmSamaritan Hospitalerum or plasma total bilirubin measurement (mass/volume)Ordered By: Gilson Castro on 52-84-9944Fvmaypdfp [Mass/Vol]1.0 mg/dL0.3-1.2FSumma Health Wadsworth - Rittman Medical Centererum or plasma total carbon dioxide measurement (moles/volume)Ordered By: Gilson Castro on 54-91-2131QS6 [Moles/Vol]24.6 mmol/L22.0-30.0[facility] Serum or plasma urea nitrogen measurement (mass/volume)Ordered By: Gilson Castro on 79-17-1742Fsod nitrogen [Mass/Vol]23 mg/dL9-23Samaritan Hospitalpecific gravity Auto test strip (U) [Rel density]Ordered By: Gilson Castro on 05-71-8049Nkzsisbn gravity (U) [Rel density]1.0231.001-1.030 Samaritan Hospitalquamous epithelial cells detection in urine sediment by light microscopyOrdered By: Gilson Castro on 16-89-1045Aetmvpvmbq cells.squamous LM Ql (Urine sed)20-30 [HPF]0-2FPaulding County Hospital Urine bacteria detection by automated methodOrdered By: Gilson Castro on 98-58-9346Ouzguuzw Auto Ql (U)1+None SeenTrihealthUrine clarity by refractometry automatedOrdered By: Gilson Castro on 58-58-8933Inogtxf Refractometry automated (U)TurbidCleSelect Medical Specialty Hospital - Boardman, IncUrine cocaine detectionOrdered By: Gilson Castro on 96-04-1183Ptbvhee Ql (U)Negative NegativeTrihealthUrine glucose measurement by automated test strip (mass/volume)Ordered By: Gilson Castro on 00-21-7911Shosmns Auto test strip (U) [Mass/Vol]Normal mg/dLNormalTrihealthUrine hemoglobin detection by automated test stripOrdered By: Gilson Castro on 51-42-9260Jcrulfxpdq Auto test strip Ql (U)NegativeNegativeTrihealthUrine leukocyte esterase detection by automated test stripOrdered By: Gilson Castro on 39-71-5416Lhibtyzwq esterase Auto test strip Ql (U)2+ NegativeTrihealthUrobilinogen Auto test strip (U) [Mass/Vol]Ordered By: Gilson Castro on 52-58-9856Yoxikwtdfkze (U) [Mass/Vol] Normal mg/dLNormalTrihealthpH Auto test strip (U)Ordered By: Gilson Castro on 05-31-0451dG (U)8.0 [pH]5.0-9.0TrihealthAlbumin [Mass/volume] in Serum or PlasmaOrdered By: Art Bianchi on 67-79-8227Dcmdvsb [Mass/Vol]4.7 g/dL3.2-5.5FPaulding County Hospital Basophils Auto (Bld) [#/Vol]Ordered By: Art Bianchi on 89-83-6588Nfkuyhgsb (Bld) [#/Vol]0.0 10*3/uL0.0-0.1FPaulding County HospitalBasophils/100 WBC Auto (Bld)Ordered By: Art Bianchi on 00-84-9772Rqtuqbnva/100 WBC (Bld)0.2 %. TrihealthBlood hemoglobin measurement (mass/volume) Ordered By: Art Bianchi on 89-47-8253Clklzojqvq (Bld) [Mass/Vol]13.6 g/dL 12.0-16.0TrihealthBlood leukocytes automated count (number/volume)Ordered By: Art Bianchi on 29-75-8080BJJ (Bld) [#/Vol]14.0 10*3/uL4.5-13.5FPaulding County HospitalCreatinine and Glomerular filtration rate.predicted panel (S/P/Bld)Ordered By: Art Bianchi on 05-15-2022 Creatinine [Mass/Vol]0.76 mg/dL0.44-1.03[facility] Eosinophils Auto (Bld) [#/Vol]Ordered By: Art Bianchi on 30-39-7609Oztwprifqqe (Bld) [#/Vol]0.0 10*3/uL0.0-0.7FPaulding County HospitalEosinophils/100 WBC Auto (Bld)Ordered By: Art Bianchi on 79-97-4736Beyhluypjtw/100 WBC (Bld)0.4 %.TrihealthErythrocyte distribution width Auto (RBC) [Ratio]Ordered By: Art Bianchi on 00-84-0840Kmvpokwgzil distribution width (RBC) [Ratio]13.7 %11.9-15.3FPaulding County HospitalEstimated glomerular filtration rate (GFR) non- AmericanOrdered By: Art Bianchi on 05-15-2022 GFR/1.73 sq M.predicted among non-blacks MDRD (S/P/Bld) [Vol rate/Area]> 60 mL/MinTrihealthGlobulin Calc (S) [Mass/Vol]Ordered By: Art Bianchi on 37-18-2471Dxwmdhee (S) [Mass/Vol]3.2 g/dLTrihealthHematocrit Auto (Bld) [Volume fraction]Ordered By: Art Bianchi on 17-42-8123Byyabtonac (Bld) [Volume fraction]41.0 %36.0-46.0TrihealthLaboratory - Chemistry and Chemistry - challengeOrdered By: Art Bianchi on 32-63-2473Fzlcos [Catalytic activity/Vol]24.0 U/G40-44FgpogdpiqTrihealthLaboratory - Hematology and Cell countsOrdered By: Art Bianchi on 06-44-1144Ysiaugese RBC/100 WBC (Bld) [Ratio]0.0 %0-0.5FPaulding County HospitalLymphocytes Auto (Bld) [#/Vol]Ordered By: Art Bianchi on 85-13-2072Pbscwpzsckt (Bld) [#/Vol]2.6 10*3/uL1.20-4.8TrihealthLymphocytes/100 WBC Auto (Bld)Ordered By: Art Bianchi on 05-15-2022 Lymphocytes/100 WBC (Bld)18.4 %.TrihealthMCH Auto (RBC) [Entitic mass]Ordered By: Art Bianchi on 21-26-3308OKB (RBC) [Entitic mass]28.0 pg25.0-35.0TrihealthMCHC Auto (RBC) [Mass/Vol]Ordered By: Art Bianchi on 41-12-9911ZPDB (RBC) [Mass/Vol]33.3 g/dL31.0-37.0TrihealthMCV Auto (RBC) [Entitic vol]Ordered By: Art Bianchi on 20-79-5061YKY (RBC) [Entitic vol]84.1 wG46-445GylrxmixpTrihealth Monocytes Auto (Bld) [#/Vol]Ordered By: Art Bianchi on 57-46-8662Srreenmae (Bld) [#/Vol]1.2 10*3/uL0.1-1.00TrihealthMonocytes/100 WBC Auto (Bld)Ordered By: Art Bianchi on 13-18-6340Chvavxeji/100 WBC (Bld)8.3 %. TrihealthNeutrophils Auto (Bld) [#/Vol]Ordered By: Art Bianchi on 45-41-2714Yvkkeuerlee (Bld) [#/Vol]10.2 10*3/uL1.2-7.7FPaulding County HospitalNeutrophils/100 WBC Auto (Bld)Ordered By: Art Bianchi on 19-27-0941Oytabcfzgtb/100 WBC (Bld)72.7 %.TrihealthNo Panel InformationOrdered By: Art Bianchi on 37-31-0434Plygwxatj GFR ()> 60 mL/MinTrihealthComment on above:GFR estimated reference range: According to KDOQI guidelines, <60 ml/min/1.73m2 is sufficient todiagnose a patient with chronic kidney disease.Pharmacy Creatinine Clearance (Walx596.34TrihealthPlatelet mean volume Auto (Bld) [Entitic vol]Ordered By: Art Bianchi on 46-02-6981Sciqnhlx mean volume (Bld) [Entitic vol]8.8 fL6.3-10.7FPaulding County HospitalPlatelets Auto (Bld) [#/Vol]Ordered By: Art Bianchi on 06-80-2753Ttgdkgrsx (Bld) [#/Vol]315 10*3/tN389-489UwfzmdwjlTrihealthProtein [Mass/volume] in Serum or PlasmaOrdered By: Art Bianchi on 02-29-6527Owwohet [Mass/Vol]7.9 g/dL6.1-7.9 TrihealthRBC Auto (Bld) [#/Vol]Ordered By: Art Bianchi on 36-80-1246BGU (Bld) [#/Vol]4.88 10*6/uL4.10-5.10[facility]itan Hospitalerum or plasma alanine aminotransferase measurement without P-5'-P (enzymatic activiOrdered By: Art Bianchi on 94-12-6115SNT No additional P-5'-P [Catalytic activity/Vol]25 U/W53-52BgggbettiSamaritan Hospitalerum or plasma albumin/globulin mass ratioOrdered By: Art Bianchi on 05-15-2022 Albumin/Globulin [Mass ratio]1.5 {ratio}[facility]aritan Hospitalerum or plasma alkaline phosphatase measurement (enzymatic activity/volume)Ordered By: Art Bianchi on 16-70-5334AZD [Catalytic activity/Vol]66 U/A33-04PkvkvjxvzSamaritan Hospitalerum or plasma aspartate aminotransferase measurement (enzymatic activity/volume)Ordered By: Art Bianchi on 44-05-7493PKV [Catalytic activity/Vol]33 U/T58-86OtvjsiqivSamaritan Hospitalerum or plasma calcium measurement (mass/volume)Ordered By: Art Bianchi on 32-62-5259Hvjdhyb [Mass/Vol] 10.1 mg/dL8.2-10.2FSumma Health Wadsworth - Rittman Medical Centererum or plasma chloride measurement (moles/volume)Ordered By: Art Bianchi on 77-85-1066Pgpsuqxe [Moles/Vol]94 mmol/H72-509FtlgngkqmSamaritan Hospitalerum or plasma glucose measurement (mass/volume)Ordered By: Art Bianchi on 66-54-0960Wzdwbac [Mass/Vol]102 mg/wA95-201QsupgcoslTrihealthComment on above:ADA recommended reference range Random Glucose Reference Range is dependent on time and content of last meal. Glucose of more than 200 mg/dL in a nonstressed, ambulatory subject supports the diagnosis of Diabetes Mellitus.Serum or plasma potassium measurement (moles/volume)Ordered By: Art Bianchi on 50-52-8031Qfseepwxz [Moles/Vol]3.1 mmol/L3.5-5.1FSumma Health Wadsworth - Rittman Medical Centererum or plasma sodium measurement (moles/volume)Ordered By: Art Bianchi on 08-29-5741Jsiorr [Moles/Vol]135 mmol/L 136-146Samaritan Hospitalerum or plasma total bilirubin measurement (mass/volume)Ordered By: Art Bianchi on 84-77-5833Ozjjgsfeo [Mass/Vol]1.2 mg/dL0.3-1.2FSumma Health Wadsworth - Rittman Medical Centererum or plasma total carbon dioxide measurement (moles/volume)Ordered By: Art Bianchi on 05-15-2022 CO2 [Moles/Vol]22.2 mmol/L22.0-30.0[facility] Hospitalerum or plasma urea nitrogen measurement (mass/volume)Ordered By: Art Bianchi on 23-93-9469Aoso nitrogen [Mass/Vol]23 mg/dL9-23[facility] Albumin [Mass/volume] in Serum or PlasmaOrdered By: Art Bianchi on 05-13-2022 Albumin [Mass/Vol]4.3 g/dL3.2-5.5FPaulding County HospitalAutomated erythrocytes count in urine sediment (number/area)Ordered By: Art Bianchi on 73-14-2284WYJ Auto (Urine sed) [#/Area]1-2 [HPF]0-4FPaulding County HospitalAutomated leukocytes count in urine sediment (number/area)Ordered By: Art Bianchi on 44-21-2282QZK Auto (Urine sed) [#/Area]1-2 [HPF]0-4FPaulding County HospitalBasophils Auto (Bld) [#/Vol]Ordered By: Art Bianchi on 65-67-3173Klunzxgij (Bld) [#/Vol]0.1 10*3/uL0.0-0.1FPaulding County HospitalBasophils/100 WBC Auto (Bld)Ordered By: Art Bianchi on 05-13-2022 Basophils/100 WBC (Bld)1.0 %.TrihealthBilirubin Test strip Ql (U)Ordered By: Art Bianchi on 60-99-6143Yodouwehs Ql (U)Negative NegativeTrihealthBlood hemoglobin measurement (mass/volume)Ordered By: Art Bianchi on 76-85-2213Ectbolzjsv (Bld) [Mass/Vol] 13.7 g/dL12.0-16.0TrihealthBlood leukocytes automated count (number/volume)Ordered By: Art Bianchi on 86-65-0456JYY (Bld) [#/Vol]10.4 10*3/uL4.5-13.5FPaulding County HospitalColor Auto (U)Ordered By: Art Bianchi on 92-61-1620Bzoar (U)YellowYellowTrihealth Creatinine and Glomerular filtration rate.predicted panel (S/P/Bld)Ordered By: Art Bianchi on 83-29-8082Gqccydxbtn [Mass/Vol]0.76 mg/dL0.44-1.03TrihealthEosinophils Auto (Bld) [#/Vol]Ordered By: Art Bianchi on 04-01-5698Yfwothfetgd (Bld) [#/Vol]0.5 10*3/uL0.0-0.7FPaulding County HospitalEosinophils/100 WBC Auto (Bld)Ordered By: Art Bianchi on 05-13-2022 Eosinophils/100 WBC (Bld)4.6 %.TrihealthErythrocyte distribution width Auto (RBC) [Ratio]Ordered By: Art Bianchi on 05-13-2022 Erythrocyte distribution width (RBC) [Ratio]13.6 %11.9-15.3FPaulding County HospitalEstimated glomerular filtration rate (GFR) non- Ordered By: Art Bianchi on 27-79-7814UZE/1.73 sq M.predicted among non-blacks MDRD (S/P/Bld) [Vol rate/Area]> 60 mL/MinTrihealth Globulin Calc (S) [Mass/Vol]Ordered By: Art Bianchi on 03-51-4121Bnrzqrzl (S) [Mass/Vol]2.7 g/dLTrihealthHCG ( test) IA.rapid Ql (U)Ordered By: Art Bianchi on 20-96-7630IYK ( test) Ql (U)Negative TrihealthHematocrit Auto (Bld) [Volume fraction]Ordered By: Art Bianchi on 36-27-8617Jsivedabxg (Bld) [Volume fraction]40.5 %36.0-46.0 TrihealthKetindiana university health university hospital Auto test strip (U) [Mass/Vol]Ordered By: Art Bianchi on 75-18-5544Bheyuul (U) [Mass/Vol]TraceNegativeTrihealthLaboratory - Hematology and Cell countsOrdered By: Art Bianchi on 73-55-5114Opflrfdsi RBC/100 WBC (Bld) [Ratio]0.0 %0-0.5FPaulding County HospitalLaboratory - UrinalysisOrdered By: Art Bianchi on 73-77-9989Dxjlgvu casts LM Ql (Urine sed)0-8 [LPF]0-8TrihealthLymphocytes Auto (Bld) [#/Vol]Ordered By: Art Bianchi on 05-13-2022 Lymphocytes (Bld) [#/Vol]1.4 10*3/uL1.20-4.8[facility] Lymphocytes/100 WBC Auto (Bld)Ordered By: Art Bianchi on 05-13-2022 Lymphocytes/100 WBC (Bld)13.1 %.[facility] Auto (RBC) [Entitic mass]Ordered By: Art Bianchi on 45-13-3036YVZ (RBC) [Entitic mass]28.6 pg25.0-35.0TrihealthMCHC Auto (RBC) [Mass/Vol]Ordered By: Art Bianchi on 56-37-7293KBFK (RBC) [Mass/Vol]33.7 g/dL31.0-37.0TrihealthMCV Auto (RBC) [Entitic vol]Ordered By: Art Bianchi on 58-88-1573KEC (RBC) [Entitic vol]84.7 hU68-688HrpuccohoTrihealth Monocytes Auto (Bld) [#/Vol]Ordered By: Art Bianchi on 16-47-5069Pinfsvbqr (Bld) [#/Vol]0.4 10*3/uL0.1-1.00TrihealthMonocytes/100 WBC Auto (Bld)Ordered By: Art Bianchi on 21-88-0062Jpsnxhwbm/100 WBC (Bld)4.2 %. TrihealthNeutrophils Auto (Bld) [#/Vol]Ordered By: Art Bianchi on 10-44-5898Dgspifvcwac (Bld) [#/Vol]8.0 10*3/uL1.2-7.7FPaulding County HospitalNeutrophils/100 WBC Auto (Bld)Ordered By: Art Bianchi on 18-70-2391Fkubfghnuys/100 WBC (Bld)77.1 %.[facility] Nitrite Test strip Ql (U)Ordered By: Art Bianchi on 96-98-9933Rymbubx Ql (U) NegativeNegSelect Medical Cleveland Clinic Rehabilitation Hospital, AvonNo Panel InformationOrdered By: Art Bianchi on 43-96-6832Ppwdhevzb GFR ()> 60 mL/MinTrihealthComment on above:GFR estimated reference range: According to KDOQI guidelines, <60 ml/min/1.73m2 is sufficient todiagnose a patient with chronic kidney disease.Pharmacy Creatinine Clearance (Mzut125.80TrihealthPlatelet mean volume Auto (Bld) [Entitic vol]Ordered By: Art Bianchi on 14-99-6088Hzmoinpn mean volume (Bld) [Entitic vol]8.6 fL6.3-10.7 TrihealthPlatelets Auto (Bld)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 computer/internet, individual instruction, skilldemonstration, verbal instruction, video, written material? Cultural Considerationsnone? Developmental Considerationsnone? Adventist Considerationsnone Learning Assessment (Other Learner):? Other learner availableyes? Other Learner is Able to be Assessed for Learningyes? Learnerfather, mother? Factors Influencing Readiness to Learnnone, ready to learn? Factors that Impact Ability to Learnnone? Devices/Methods Used to Communicatenone? Learning Preferencesaudio, computer/internet, group instruction, individualinstruction, skill demonstration, verbal instruction, video, written material? Cultural Considerationsnone? Developmental Considerationsnone? Adventist Considerationsnone Nutrition Risk Screen:? N utrition Screen [...] Spiritual Screen:? Are there any cultural, spiritual, christian practices/values/needs that areimportant for us to know?no [...] Screens Last Updated: 23-Jun-2018 02:50 by Lubna Lockett)[facility] Clinical Event Note-Consent for psych evalon 16-31-9449Wcdxgyyn Event Note- Consent for psych evalEvent:Topic: Consent for psych evalDetails:Father (Carlos Parikh) and Mother ([phone]) give consent for patient to [facility]eval[facility]Re[facility] by [facility] number [phone] Provider / Team Contact Information:Provider/Team Contact Info-Pager Number: [phone] Electronic Signatures:Ayaan Burnham (Resident)) (Signed 23-Jun-2018 03:20)Authored: Event, Provider / Team Contact Information Last Updated: 23-Jun-2018 03:20 by Ayaan Burnham (Resident)) [facility] HospitalClinical Event Note-Medical Clearanceon 21-34-2188Ovshlquo Event Note-Medical ClearanceEvent:Topic: Medical ClearanceDetails:Medically cleared for [facility] transfer, pending bed availability. CAMILA CorreaGY-1 PediatricsPager [phone] Provider / Team Contact Information:Provider/Team ContactInfo-Pager Number: [phone] Electronic Signatures:Nelsy Rowland (Resident)) (Signed 23-Jun-2018 13:10)Authored: Event, Provider / Team Contact Information Last Updated: 23-Jun-2018 13:10 by Nelsy Rowland (Resident))[facility] HospitalClinical Event Note- transfer to [facility] CAPUon 34-86-2210VKV Auto #/vol (Bld)Event:Topic: transfer to [facility] CAPUDetails:A bed will be available tonight after [...] / Team Contact Information:Provider/Team Contact Info-Pager Number: [phone] pager Electronic Signatures:Flor Al (Fellow)) (Signed 23-Jun-2018 18:33)Authored: Event, Provider / Team Contact Information Last Updated: 23-Jun-2018 18:33 by Flor Al (Fellow)) [facility] HospitalConsult - Child Psychiatryon 00-88-8817Rslykyo - Child PsychiatryConsult Referral Information:Consult requested by [...] well and was taken to [facility] ED withbradycardia and dizziness, was admitted to telemetry, later medically clearedand transferred to [facility] medical floor for psychiatric placement. She reported [...] psychiatrist: NoneCurrent therapist: Maureen (through [facility])Other providers/agencies: [facility] Griffin ([phone]) [facility], [facility]; attends group therapy every (patient states therapy wasstarted because she was in the hospital for so long due to her POTS)Outpatient treatment history: No current 1:1 therapist, but [facility] treatment history: NoneHistory of suicide ideation/attempts: [...] school due to hospitalizations for POTS/medical issuesReports [facility] recent [facility] that [...] checked: no Objective Information: Objective Information: T FPWVJlN4Weflj02.7726902/5699%Date/Time06/23 8: 8: 8: 8: 8:33Range(36.5C - 36.7C [...] Ondansetron - PEDS: 8 mg Oral Every 6Etpiy8. Polyethylene Glycol - PEDS: 17 gram(s) Oral [...] patient to leave even AMA(4) Please call [phone] with any questions Electronic Signatures:Laura Galvez) (Signed 23-Jun-2018 13:03)Authored: Consult Referral Information, History of Presenting Illness,Allergies, Medications Prior to Admission, Objective Information,As sessment/Recommendations, Signature/Cosignature/Attestation Last Updated: 23-Jun-2018 13:03 by Laura Galvez)[facility] Discharge Planning Noteon 94-43-4182Gwsshejnu Planning NoteDischarge Needs Assessment:? Discharge Planning Assessment Gvlq64-Lgt-9045? Discharge Planning Assessment Completed byLubna Lockett RN [...] Care NeedsHome Discharge Planning:Discharge Plannin06/23/2018 @ 0100 headend technician Note: Patient admitted [facility] from [facility]. Patient admitted for ingestion ofatenolol, SI. Patient and familyoriented to the unit, staff, and floor routine. Patient and family do not haveany more questions or needs at this time. - Lubna Lockett RN Final Disposition/Discharge:Disposition/Discharge Information: Discharge/Transfer Information:? Discharge/Transfer Date/Eilp25-O 14:50? Discharged Accompanied Byparent? Discharge Modeambulatory? Transportation [...] From Admission Risk Screen - Pediatric 06/23/2018 02:40AMNormalCape Regional Medical CenterHistory and Physical - Pedson 06-23-2018 History and Physical - PedsHistory of Present Illness:/Lactating:? Are You no (1)? Are You Currently Breastfeedingno (1) History of Present Illness:Admission Reason: awaiting psych placementHPI:2 days [employer]ORT[employer] MAK[employer] around 6:40 in the evening, Pili felt [...] given, Atenolol held.Medically cleared and transferred to [facility]. Upon arrival denies anypain, asidesfrom her baseline [...] and are negative Objective: Objective Information: T VHCZGpZ8Rqbro28.26472403/7897%Date/Time06/23 0:5006/23 0:5006/23 0:5006/23 0:5006/23 0:50Range(36.7C - 36.7C [...] OSH and transferred toR for psych [facility]. [facility]# suicidal ideation - beta adán overdose- psycheval- awating for bed- parents do not want psych meds- 1:1 sitter- f/u with poison control. CV- baseline HR 50-60s- EKG at OSH- sinus bradycardia with sinus arrhythmia- atenolol held- repeat EKG POTS- continue home meds Ayaan Burnham, CAMILAGY-1 PediatricsPager [phone] Signatures/Attestation/Certification:Attending AttestationI saw and evaluated the patient. [...] patient (as noted in the above attestation) xi85-Kjj-2 018Attending Provider ? Inpatient Certification StatementI certify [...] Patient Profile - Pediatric v2 06/23/2018 02:37 [facility] HospitalLetter - Admission Notification to PCPon 88-16-3313Rkndna - Admission Notification to PCPLetter of Admission:Today's Date: 23-Jun-2018. Dear Melida Daniel MD. We would like to informyou that your patient was admitted [facility] on the following date: 2017. [...] Radha Unger MD. Attending Physician Phone Number: [phone]. Electronic Signatures:Jae Mensah (DIV SECT) (Signed 23-Jun-2018 08:29)Authored: Admission Letter Last Updated: 23-Jun-2018 08:29 by Jae Mensah (DIV SECT)[facility] HospitalMeasurementson 95-54-0827NzsecdsdhognLmffqm: ? Med Calc Weight (kg)90.5 kilogram(s) Electronic Signatures: Ayaan Burnham (Resident)) (Signed 23-Jun-2018 01:57) Authored: Weight Last Updated: 23-Jun-2018 01:57 by Ayaan Burnham (Resident))[facility] HospitalPatient Profile - Pediatric v2on 32-10-6592Tujrwbo mass concProfile:Initial Info:How to be AddressedTrinityParent NameRobert Jl (father)Spoken Language PreferredEnglishLegal CustodianParents (Carlos & )Are you currently using the Personal Electronic Health Record or [facility] HOSPITALCAREnoAre you interested in learning more about [facility] for the management of yourhealthnot at this [...] Information Last Updated: 23-Jun-2018 02:40 by Lubna Lockett)[facility] HospitalVisitor Enrico 71-09-0005Ayndegk ListVisitor List: Carlos Parikh (father). Cy Parikh (mother). Electronic Signatures: Lubna Lockett) (Signed 23-Jun-2018 04:37) Authored: Visitor List Last Updated: 23-Jun-2018 04:37 by Lubna Lockett)[facility] HospitalOffice Visit (Pediatric Neurology)on 63-84-8378Ekuyrg Visit (Pediatric Neurology)Chief ComplaintFollow up POTS and [...] her tear ducts. She had seen an tie puller who confirmed this. She is in summer school now and is hoping sherrie a freshman in the fall. She will be going to [employer] school in the fall. She can still [...] pain; KAYLA = N; Verified Transmission to [place] [address]; Last Updated By: Juan Antonio Burgos; 09/28/2017 12:12:51 PM Afrin 12 Hour 0.05 % Nasal Solution; USE 1 SPRAY IN EACH NOSTRIL TWICE DAILY;Therapy: 22Dec2017 to (Evaluate:25Dec2017) Requested for:22Dec2017; LastRx:22Dec2017 Ordered Rx By: Dali Mcintosh; Dispense: 3 Days ; #: Sufficient X 15 MLBottle; Refill: 0;For: Abdominal pain, Asthma, mild persistent, Epistaxis, Flu-like symptoms, Hematemesis, Vomiting; KAYLA = N; Rx auto-faxed to [facility]; Last Updated By: CX; 12/22/2017 5:43:51 PM AeroChamber Z-Stat Plus/Large Miscellaneous; Please dispense large spacer withmouthpiece. Okay to substitute Optichamber with mouthpiece or Ashley Vortex withmouthpiece;Therapy: 2 03Sep2014 to (Last Rx:24Mar2015) Requested for: 24Mar2015 Ordered Rx By: Amira Roach; Dispense: 0 Days ; #:1 Miscellaneous; Refill: 1;For: Asthma; KAYLA = N; Verified Transmission to [facility]; Last Updated By: CX; 03/24/2015 10:46:52 AM Albuterol Sulfate (2.5 MG/3ML) 0.083% Inhalation Nebulization Solution; Inhale one vialevery 4-6 hours as needed for cough, wheezing andshortness of breath;Therapy: 23Sep2014 to (Evaluate:20Oct2015) Requested for: 24Mar2015; LastRx:24Mar2015 Ordered Rx By: Amira Roach; Dispense: 30 Days ; #:1 X 3 ML Plas Cont (60 Plas Conts); Refill: 6;For: Asthma; KAYLA = N; Verified Transmission to [facility]; Last Updated By: CX; 03/24/2015 10:46:51 AM PredniSONE 20 MG Oral Tablet; Take 3 tablets once daily for 5-7 days. To be used in thesetting of a severe asthma flare-up. Please call the office prior to starting;Therapy: 23Sep2014 to (Last Rx:24Mar2015) Requested for: 52Atn0660 Ordered Rx By: Amira Roach; Dispense: 0 Days ; #:21 Tablet; Refill: 1;For: Asthma; KAYLA = N; Sent To: [facility]; Last Updated By: Dali Mcintosh; 04/14/2018 10:03:48 AM ProAir HFA 108 (90 Base) MCG/ACT Inhalation Aerosol Solution; Inhale 2-4 puffs every4-6 hours as needed for cough, wheezing or shortness of breath and priorto exercise;Therapy: 23Sep2014 to (Last Rx:14Bbv0043) Requested for: 24Mar2015 Ordered Rx By: Amira Roach; Dispense: 0 Days ; #:2 X 8.5 GM Inhaler; Refill: 6;For: Asthma; KAYLA = N; Verified Transmission to [place] [address]; Last Updated By: [employer]; 03/24/2015 10:46:52 AM Qvar 80 MCG/ACT Inhalation Aerosol Solution; INHALE TWO PUFFS BY MOUTH TWICEA DAY WITH A SPACER;Therapy: 23Sep2014 to (Last Rx:64Skt9759) Requested for: 13Rfq8314 Ordered Rx By: Amira Roach; Dispense: 0 Days ;#:8.7 EA; Refill: 5;For: Asthma, mild persistent; KAYLA = N; Verified Transmission to [place] [address] Lansoprazole 30 MG Oral Capsule Delayed Release; TAKE 1 CAPSULE EVERYMORNING DAILY;Therapy: 82Zma1818 to (Evaluate:30Dgr6756) Requested for: 57Whu6580; LastRx:18Apr2018 Ordered Rx By: Dali Mcintosh; Dispense: 30 Days ; #:30 Capsule Delayed Release; Refill: 3;For: Gastro-esophageal reflux; KAYLA = N; Verified Transmission to [place] [address] Unspecified Medication; Vitamin B2-400 Oral Capsule1 capsule orally once a day;Therapy: (Recorded:59Fmq1159) to Recorded Dispense: 0 Days ; #: Sufficient; Refill: 0;For: Health Maintenance; KAYLA = N; Record; Last Updated By: Mehran Martinez; 08/26/2017 8:43:21 AM Gabapentin 300 MG Oral Capsule; TAKE 1 CAPSULE 3 TIMES DAILY;Therapy: 28Sep2017 to (Eval uate:17Aug2018) Requested for: 18Feb2018; LastRx:18Feb2018 Ordered Rx By: Mere Simpson; Dispense: 30 Days ; #:90 Capsule; Refill: 5;For: Migraine; KAYLA = N; Verified Transmission to [place] [address]; Last Updated By: Loretta BriefMeGiuliaTaxiMe; 02/18/2018 9:49:39 AM Magnesium Oxide 400 MG Oral Tablet; 1 TABLET ORALLY ONCE A DAY;Therapy: (Recorded:87Vgd7230) to Recorded Dispense: 0 Days ; #: Sufficient Tablet; Refill: 0;For: Migraine; KAYLA = N; Record; Last Updated By: Mehran Martinez; 08/26/2017 8:43:21 AM Amitriptyline HCl - 25 MG Oral Tablet; TAKE 1 TABLET AT BEDTIME;Therapy: 59Hqn1046 to (Evaluate:29Sfs6160) Requested for: 65Jyk0148; LastRx:78Npd0031 Ordered Rx By: Dali Mcintosh; Dispense: 30 Days ; #:30 Tablet; Refill: 6;For: Migraine, Vomiting; KAYLA = N; Verified Transmission to [place] [address] Vitamin D 1000 UNIT Oral Tablet; TAKE 1 TABLET DAILY;Therapy: 56Ubz5182 to (Evaluate:79Wwl9045) Requested for: 73Mrb4263; LastRx:50Uxi9934 Ordered Rx By: Dali Mcintosh; Dispense: 30 Days ; #:30 Tablet; Refill: 3;For: Vitamin D deficiency; KAYLA = N; Verified Transmission to [place] [address] Cyproheptadine HCl - 4 MG Oral Tablet; TAKE 1 TABLET EVERY 8 HOURS DAILY Requested for: 02Sep2017; Last Rx:02Sep2017 Ordered Rx By: Jessica Coello; Dispense: 30 Days ; #:90 Tablet; Refill: 3;For: Vomiting; KAYLA = N; Rx auto-faxed to [place] [address]; Last Updated By: Juan Antonio Burgos; 09/02/2017 3:51:52 PM Ondansetron HCl - 8 MG Oral Tablet; TAKE 1 TABLET 3 times daily PRN vomiting;Therapy: 16Dec2017 to (Evaluate:09Urr8847) Requested for: 41Jzz1091; LastRx:18Apr2018 Ordered Rx By: Dali Mcintosh; Dispense: 30 Days ; #:90 Tablet; Refill: 3;For: Vomiting; KAYLA = N; Verified Transmission to [place] [address] Phenergan 25 MG SUPP; INSERT 1 SUPPOSITORY RECTALLY EVERY 12 HOURS ASNEEDEDFOR NAUSEA AND VOMITING;Therapy: 10Lqf0514 to (Last Rx:16Dec2017) Requested for: 16Dec2017 Ordered Rx By: Dali Mcintosh; Dispense: 0 Days ; #:12 Suppository; Refill: 1;For: Vomiting; KAYLA = N; Rx [facility]ed to [facility]; Last Updated By: CX; 12/16/2017 1:32:36 PM Promethazine HCl - 25 MG Oral Tablet; 1 tablet orally every 12 hours as needed fornausea/vomiting Requested for: 16Dec2017; Last Rx:16Dec2017 Ordered Rx By: Dali Mcintosh; Dispense: 0 Days ; #:60 Tablet; Refill: 0;For: Vomiting; KAYLA = N; Rx [facility]ed to [facility]; Last Updated By: CX; 12/16/2017 1:32:35 PM Atenolol 25 MG Oral [...] 04/14/2018 10:03:53 AM Vitals Vital Signs Recorded: 32Yal5815 10:94JPEqrjqrbk695Nkhkxuzzc15Aeacgs9 ft 2.40 rtNxjocz591 lb 14.53 ozBMI Juaqelqzff90.18BSA Calculated1.94BMI Gnevdanpoc02 %2-20 Stature Itkoeutyki95 %2-20 Weight Jcrzaidfks46 % Physical ExamToday's exam finds a cooperative [...] AND Treat Status:Hold For- Scheduling Requested for: 46Lmx8040 Ordered;For: Snoring; Ordered By: Mere Simpson Performed: [...] or Ashley Vortex withmouthpiece;Therapy: 23Sep2014 to (Last Rx:98Tdp6859) Requested for: 24Mar2015 OrderedAfrin 12 Hour 0.05 [...] Oral Tablet; TAKE 1 TABLET AT BEDTIME;Therapy: 00Sxx2413 to (Evaluate:62Qoe3489) Requested for: 18Apr2018; LastRx:99Jvs4853 OrderedAtenolol 25 MG Oral Tablet; TAKE 1 TABLET DAILY;Therapy: (Recorded:20Oct2015) to RecordedCyproheptadine HCl - 4 MG Oral Tablet; TAKE 1 TABLET EVERY 8 HOURS DAILY Requested for: 02Sep2017; Last Rx:02Sep2017 OrderedFludrocortisone Acetate 0.1 MG Oral Tablet; take one tablet twice a day;Therapy: (Recorded:20Oct2015) to RecordedGabapentin 300 MG Oral Capsule; TAKE 1 CAPSULE 3 TIMES DAILY;Therapy: 61Kvt0193bs (Evaluate:81Tpq2822) Requested for: 18Feb2018; LastRx:18Feb2018 OrderedHyoscyamine Sulfate 0.125MG Oral Tablet Disintegrating; 2 tablets orally every 8 hours Requested for: 28Sep2017; Last Rx:28Sep2017 OrderedLansoprazole 30 MG Oral Capsule Delayed Release; TAKE 1 CAPSULE EVERYMORNING DAILY;Therapy: 14Apr2018 to (Evaluate:28Tjt8053) Requested for: 18Apr2018; LastRx:18Apr2018 OrderedMagnesium Oxide 400 MG Oral Tablet; 1 TABLET ORALLY ONCE A DAY;Therapy: (Recorded:93Suw3674) to RecordedOndansetron HCl - 8 MG Oral Tablet; TAKE 1 TABLET 3 times daily PRN vomiting;Therapy: 16Dec2017 to (Evaluate:79Tbq6381) Requested for: 18Apr2018; LastRx:18Apr2018 OrderedPhenergan 25 MG SUPP; INSERT 1 SUPPOSITORY RECTALLY EVERY 12 HOURS ASNEEDED FOR NAUSEA AND VOMITING;Therapy: 03Nov2015 to (Last Rx:16Dec2017) Requested for: 16Dec2017 OrderedPredniSONE 20 MG Oral Tablet; Take 3 tablets once daily for 5-7 days. To be used in thesetting of a severe asthma flare-up. Please call the office prior to starting;Therapy: 23Sep2014 to (Last Rx:12Dad1894) Requested for: 14Apr2018 OrderedProAir HFA 108 (90 Base) MCG/ACT Inhalation Aerosol Solution; Inhale 2-4 puffs every4-6 hours as needed for cough, wheezingor shortness of breath and prior to exercise;Therapy: 23Sep2014 to (Last Rx:45Jih5508) Requested for: 24Mar2015 OrderedPromethazine HCl - 25 MG Oral Tablet; 1 tablet orally every 12 hours as needed fornausea/vomiting Requested for: 16Dec2017; Last Rx:16Dec2017 OrderedQvar 80 MCG/ACT Inhalation Aerosol Solution; INHALE TWO PUFFS BY MOUTH TWICEA DAY WITH A SPACER;Therapy: 23Sep2014 to (Last Rx:49Lyx2274) Requested for: 27Apr2016 OrderedTri-Sprintec 0.18/0.215/0.25 MG-35 MCG Oral Tablet;Therapy: 23Mar2018 to RecordedUnspecified Medication; Vitamin B2-400 Oral Capsule1 capsule orally once a day;Therapy: (Recorded:14Cpn5084) to RecordedVitamin D 1000 UNIT Oral Tablet; TAKE 1 TABLET DAILY;Therapy: 14Apr2018 to (Evaluate:71Enb1087) Requested for: 52Uev2459; LastRx:74Swb1782 Ordered Signatures Electronically signed by : Mere Simpson APRN-[facility]–NEENAHRadha; Jun 05 2018 10:46AM EST (Author)NormalUH TouchworksDischarge Summaryon [id number] SummarySend Summary:Discharge Summary Providers:Provider Role Provider Name? Referring Dali Mcintosh? Attending Adeola Colon? Primary Zac Daniel Recipients: Adeola Colon MD Baez-Socorro, MD Fredy Marley Natalie, MD - [phone] [[phone]]Dali Mcintosh MD - [phone] [Preferred]Discharge:Summary:Admission Date: .09-Aug-2017 21:44:00Discharge Date: 95-Tcg-4529Falncrueq Physician at Discharge: Adeola Colon NAdmission Reason: vomiting, hematemesisFinal Discharge Diagnoses: Functional abdominal painProcedures: null Aug 11, 2017Condition at Discharge: SatisfactoryDisposition at Discharge: .HomeVital Signs: T P R BP AfW0Wsywz 36.6 70 18 126/84 98%Date/Time 08/24 8:58 [...] months, but worse recently. She was admitted [facility] last month for the vomiting. She [...] 02, 2017 at3:30 pm. Location: [place] [address] Gtnwqb-Up Appointment 02: Physician/Dept/Service: Neurology: Caty Simpson Call to Schedule in: 1st available Scheduled Date/Time: 31-Aug-2017 14:00 Location: [address] [place] [address] Prwzgp-Up Appointment 03: Physician/Dept/Service: ENT (ear, nose, and [...] AttestationLast Updated: 24-Aug-2017 23:59 by Adeola Colon ()[facility] HospitalPD ABDOMEN, SINGLE VIEWon [id number] ABDOMEN, SINGLE VIEWMRN: [id number] Name: PILI PARIKH STUDY:PD ABDOMEN, SINGLE VIEW; 08/21/2017 12:35 pm INDICATION:Signs/Symptoms: NG placement. COMPARISON:None. ORDERING CLINICIAN:Kelle BOATENG FINDINGS:Tip of NG overlies the gastric body. There is a nonobstructive bowel gas pattern. Visualized soft tissues and osseous structures are unremarkable. The lung bases are clear. IMPRESSION:Tip of NG overlies the gastric body.Electronically signed by: COREY JOHNS, [facility], [place]izabethtonNR MRI BRAIN WOon [id number] MRI BRAIN WOMRN: [id number] Name: PILI PARIKH STUDY:NR MRI BRAIN WO; [...] Chiari malformation. The study was interpreted at [facility].Electronically signed by: Benita HARDYProMedica Bay Park Hospital Surgical Pathology Departmenton [id number] Surgical Pathology DepartmentNamPILI Murphy Pathologist: SANAZ MARIate [...] specimen is submitted in toto in one cassette.MXWmxw/08/11/2017NoMcKee Medical CenterComment on above:Performed By: #### T4FRE ####[facility], [place] [address]BCXBXFBbl 08-10-2017 Amylase enzyme act/vol19 U/JKfulah19 - 76[facility] CenterComment on above:Performed By: #### VTDOH ####[place] [id number], [place] [address]C-FDFRGGYP PROTEINon 16-51-6188JGA mass conc0.34 mg/dL NormalCape Regional Medical CenterComment on above:Result Comment: REF VALUE< 1.00Performed By: #### KACIH ####[place] [address], [place] [address]BVM AND DIFFERENTIALon 08-10-2017% AUTOMATED IMMATURE GRAN0.3 %Normal0.0 - 1.0[facility] CenterComment on above:Result Comment: Percent differential counts (%) should be interpreted in the context of the absolute cell counts (cells/L).Performed By: #### KACIH ####[place] [address] [place] [address]% RFLXMFDAWW92.9 %Nkuipk56.0 - 69.0[facility] CenterComment on above:Performed By: #### VTDOH ####[facility] [place], [place] [address]Kdvoiivrd/100 WBC Auto (Bld)0.4 %Normal0.0 - 1.0[facility] CenterComment on above: Performed By: #### MERCEDDOH ####[place] [address], [place] [address]Lhndhtfts/100 WBC Auto (Bld)0.03 x10E9/LNormal0.00 - 0.10 [facility] CenterComment on above:Performed By: #### VTDOH ####[facility], [place] [address]Hpfvbcsiuzi Auto #/vol (Bld)0.29 10*3/uLNormal0.00 - 0.70[facility] CenterComment on above:Performed By: #### VTDOH ####[facility], [place] [address]Votpokwnoyj/100 WBC Auto (Bld)4.2 %Normal0.0 - 5.0[facility] CenterComment on above:Performed By: #### VTDOH ####[facility], [place] [address]Aduaygzagia distribution width Auto Ratio (RBC)14.1 %Qrsrya47.5 - 14.5[facility] CenterComment on above:Performed By: #### VTDOH ####[facility], [place] [address]Nvomzmftgx Auto Volume Fraction (Bld) 35.4 %Low36.0 - 46.0[facility] CenterComment on above:Performed By: #### VTDOH ####[facility] [place] [address] Hemoglobin mass conc (Bld)11.0 g/dLLow12.0 - 16.0[facility] Comment on above:Performed By: #### MERCEDDOH ####[facility], [place] [address]Pmbqftynftf Auto #/vol (Bld)2.33 10*3/uLNormal1.80 - 4.80[facility] CenterComment on above:Performed By: #### VTDOH ####[facility] [place] [address] Lymphocytes/100 WBC Auto (Bld)33.8 %Piatpb54.0 - 48.0[facility] Comment on above:Performed By: #### VTDOH ####[facility], [place] [address]MPHE Auto mass conc (RBC)31.1 g/jXXqjeuz58.0 - 37.0[facility] CenterComment on above:Performed By: #### VTDOH ####[facility], [place] [address]PQT Auto Entitic volume (RBC)80 sIJbdlug27 - 102[facility] CenterComment on above: Performed By: #### VTDOH ####[facility], [place] [address]Rxwhmpkmu Auto #/vol (Bld)0.58 10*3/uLNormal0.10 - 1.00[facility] CenterComment on above:Performed By: #### KACIH ####[facility], [place] [address]Qufilzjwx/100 WBC Auto (Bld)8.4 %Normal3.0 - 9.0[facility] CenterComment on above: Performed By: #### MERCEDDOH ####[facility], [place] [address]Ecladikzmcd Auto #/vol (Bld)3.65 10*3/uLNormal1.20 - 7.70 [facility] CenterComment on above:Performed By: #### KACIH ####[place] [address], [place] [address]Mvbdyzcqg RBC/100 WBC Ratio (Bld)0.0 /100 WBCNormal0.0-0.0[facility] CenterComment on above:Performed By: #### MERCEDDOH ####[facility], [place] [address]Kjkbxgzmz Auto #/vol (Bld)256 10*3/xXPfxcds389 - 400[facility] CenterComment on above:Performed By: #### MERCEDDOH ####[facility], [place] [address]EXF Auto #/vol (Bld) 4.40 x10E12/LNormal4.10 - 5.20[facility] CenterComment on above: Performed By: #### MERCEDDOH ####[facility], [place] [address]ZXU Auto #/vol (Bld)6.9 10*3/uLNormal4.5 - 13.5[facility] CenterComment on above:Performed By: #### VTDOH ####[facility], [place] [address]MYDLVD DISEASE SEROLOGY PANELon 86-05-1125RMNCQTP ABS, IBE3Pnixbw6 - 14[facility] CenterComment on above:Result Comment: False negative Deamidated Gliadin Peptide Antibody, IgA results can occur in patients already adhering to a gluten-free diet or patients with IgA deficiency. Tissue Transglutaminase Antibody, IgA is the preferred test for screening patients with suspected Celiac Disease. Performed By: #### T4FRE ####[facility], [place] [address]MDFWZVQ ABS, IGG<2Fxqwyg7 - 14[facility] Comment on above:Result Comment: False negative Deamidated Gliadin Peptide Antibody, IgG results can occur in patients already adhering to a gluten-free diet. Tissue Transglutaminase Antibody, IgA is the preferred test for screening patients with suspected Celiac Disease.Performed By: #### T4FRE ####[facility], [place] [address]IQI AB,IGA<1Pnjcys0 - 14[facility] CenterComment on above:Result Comment: Celiac disease is unlikely. False negative Tissue Transglutaminase Antibody, IgA results can occur in approximately 10% of patients with celiac disease, patients already adhering to agluten-free diet, or patients with IgA deficiency.Performed By: #### T4FRE ####[facility], [place] [address]VXB AB,IGG<1 Normal0 - 14[facility] CenterComment on above:Result Comment: False negative Tissue Transglutaminase Antibody, IgG results can occur in patients a lready adhering to a gluten-free diet. Tissue Transglutaminase Antibody, IgA is the preferred test for screening patients with suspected Celiac Disease. Performed By: #### T4FRE ####[facility], [place] [address]AOGFHSJGOCJ SCREENon 30-01-9523fICM Coag time (Bld)28 s Vvzdck59 - 36[facility] CenterComment on above:Result Comment: THE APTT IS NO LONGER USED FOR MONITORING UNFRACTIONATED HEPARIN THERAPY. FOR MONITO RING HEPARIN THERAPY, USE THE HEPARIN ASSAY.Performed By: #### VTDOH ####[facility], [place] [address]DCY Coag RelTime (PPP)1.1 {INR}Normal0.9 - 1.1[facility] CenterComment on above: Performed By: #### VTDOH ####[facility], [place] [address]Iajavokreox time (PT) Coag time (PPP)12.1 sNormal9.8 - 12.7[facility] CenterComment on above:Performed By: #### VTDOH ####[facility], [place] [address]MMLAMRY FUNCTION PANELon 32-81-2181CTD enzyme act/tio116 U/JYssadn80 - 239[facility] CenterComment on above:Performed By: #### VTDOH ####[facility], [place] [address]HDI enzyme act/vol39 U/LHigh3 - 28[facility] CenterComment on above:Result Comment: Patients treated with Sulfasalazine may generate falsely decreased results for ALT.Performed By: #### KACIH ####[facility], [place] [address]VII enzyme act/vol27 U/LHigh9 - 24[facility] CenterComment on above: Performed By: #### VTDOH ####[facility], [place] [address]Dgcbzgtpb mass conc0.4 mg/dLNormal0.0 - 0.9[facility] CenterComment on above:Performed By: #### VTDOH ####[facility], [place] [address]Mcnyrwjvr.direct mass conc0.1 mg/dL Normal0.0 - 0.3[facility] CenterComment on above:Performed By: #### VTDOH ####[facility], [place] [address]Gklyrqb mass conc5.7 g/dLLow6.2 - 7.7[facility] CenterComment on above: Performed By: #### VTDOH ####[facility], [place] [address]DKUVOFly 04-99-9828Zquqco enzyme act/vol16 U/LNormal9 - 82[facility] CenterComment on above:Result Comment: Venipuncture immediately after or during the administration of Metamizole may lead to falsely low results. Testing should be performed immediately prior to Metamizole dosing.Performed By: #### VTDOH ####[facility], [place] [address]KFELF FUNCTION PANELon 93-12-0734Aqzjode mass conc3.8 g/dLNormal3.4 - 5.0[facility] CenterComment on above:Performed By: #### T4FRE ####[facility] [place] [address] Performed By: #### VTDOH ####[facility], [place] [address]Oiiqf gap 3 molar conc13 mmol/YMywqby91 - 30[facility] CenterComment on above:Performed By: #### T4FRE ####[facility], [place] [address]Ezfzyzh mass conc9.2 mg/dLNormal8.5 - 10.7[facility] CenterComment on above:Performed By: #### T4FRE ####[facility], [place] [address]Hzmyxegs molar conc 106 mmol/EKxovgj18 - 107[facility] CenterComment on above:Performed By: #### T4FRE ####[facility], [place] [address]Mwmqzjtwea mass conc0.56 mg/dLNormal0.50 - 1.00[facility] Comment on above:Performed By: #### T4FRE ####[facility], [place] [address]Unlqghl mass bejk125 mg/rMKblt93 - 99[facility] CenterComment on above:Performed By: #### T4FRE ####[facility], [place] [address]APL7 molar conc (Bld)26 mmol/LNormal 18 - 27[facility] CenterComment on above:Performed By: #### T4FRE ####[facility], [place] [address]Ndsztkjyc mass conc4.3 mg/dLNormal3.0 - 5.4[facility] CenterComment on above: Result Comment: The performance characteristics of phosphorus testing in heparinized plasma have been validated by the individual laboratory site where testing is performed. Testing on heparinizedplasma is not approved by the FDA; however, such approval is not necessary.Performed By: #### T4FRE ####[facility], [place] [address]Iqqnolcgd molar conc 3.9 mmol/LNormal3.5 - 5.3[facility] CenterComment on above:Performed By: #### T4FRE ####[facility], [place] [address]Jlqvxa molar ybyx921 mmol/BYixqoc787 - 145[facility] Comment on above:Performed By: #### T4FRE ####[facility], [place] [address]Gkym nitrogen mass conc11 mg/dLNormal6 - 23[facility] CenterComment on above:Performed By: #### T4FRE ####[facility], [place] [address]ZUCNOPQpu 08-09-2017 Amylase enzyme act/vol22 U/NMppqdk26 - 76[facility] CenterComment on above:Performed By: #### AMIRA ####[facility], [place] [address]E-HVRMAQDK PROTEINon 68-48-8589KKM mass conc0.36 mg/dL NormalCape Regional Medical CenterComment on above:Result Comment: REF VALUE< 1.00Performed By: #### CRP ####[place] [address], [place] [address]MVJ AND DIFFERENTIALon 08-09-2017% AUTOMATED IMMATURE GRAN0.3 %Normal0.0 - 1.0[facility] CenterComment on above:Result Comment: Percent differential counts (%) should be interpreted in the context of the absolute cell counts (cells/L).Performed By: #### CBCDF ####[place] [address] [place] [address]% AXJVWEKKER46.6 %Sapxrs75.0 - 69.0[facility] CenterComment on above:Performed By: #### CBCDF ####[place] [address] [place], [place] [address]Frzcynsxv/100 WBC Auto (Bld)0.04 x10E9/LNormal0.00 - 0.10[facility] CenterComment on above:Performed By: #### CBCDF ####[place] [address] [place], [place] [address]Hcatkylbg/100 WBC Auto (Bld)0.5 %Normal0.0 - 1.0[facility] CenterComment on above:Performed By: #### CBCDF ####[place] [address] [place], [place] [address]Dejpungutbn Auto #/vol (Bld)0.28 10*3/uLNormal0.00 - 0.70[facility] CenterComment on above:Performed By: #### CBCDF ####[place] [address] [place], [place] [address]Bfiujpzgdmz/100 WBC Auto (Bld)3.6 %Normal0.0 - 5.0[facility] CenterComment on above:Performed By: #### CBCDF ####[place] [address] [place], [place] [address]Copujtfwszk distribution width Auto Ratio (RBC)14.4 %Nucqqc24.5 - 14.5[facility] CenterComment on above:Performed By: #### CBCDF ####[place] [address] [place], [place] [address]Ryfraypaty Auto Volume Fraction (Bld) 37.7 %Munpot77.0 - 46.0[facility] CenterComment on above:Performed By: #### CBCDF ####[facility] [place] [address] Hemoglobin mass conc (Bld)11.5 g/dLLow12.0 - 16.0[facility] Comment on above:Performed By: #### CBCDF ####[id number], [place] [address]Eieyeehkoyn Auto #/vol (Bld)2.20 10*3/uLNormal1.80 - 4.80[facility] CenterComment on above:Performed By: #### CBCDF ####[id number] [place] [address] Lymphocytes/100 WBC Auto (Bld)28.2 %Uqqurc40.0 - 48.0[facility] Comment on above:Performed By: #### CBCDF ####[id number], [place] [address]VJBL Auto mass conc (RBC)30.5 g/dLLow31.0 - 37.0[facility] CenterComment on above:Performed By: #### CBCDF ####[id number], [place] [address]QQP Auto Entitic volume (RBC)82 bQFrjygp59 - 102[facility] CenterComment on above: Performed By: #### CBCDF ####[facility], [place] [address]Dktizmasd Auto #/vol (Bld)0.53 10*3/uLNormal0.10 - 1.00[facility] CenterComment on above:Performed By: #### CBCDF ####[facility], [place] [address]Lyvykcswb/100 WBC Auto (Bld)6.8 %Normal3.0 - 9.0[facility] CenterComment on above: Performed By: #### CBCDF ####[facility], [place] [address]Qtivelrkhpr Auto #/vol (Bld)4.73 10*3/uLNormal1.20 - 7.70 [facility] CenterComment on above:Performed By: #### CBCDF ####[facility], [place] [address]Lewyzahep RBC/100 WBC Ratio (Bld)0.0 /100 WBCNormal0.0-0.0[facility] CenterComment on above:Performed By: #### CBCDF ####[place] [id number], [place] [address]Ygomgpqrs Auto #/vol (Bld)290 10*3/xOHqgnow004 - 400[facility] CenterComment on above:Performed By: #### CBCDF ####[place] [id number], [place] [address]AGL Auto #/vol (Bld) 4.62 x10E12/LNormal4.10 - 5.20[facility] CenterComment on above: Performed By: #### CBCDF ####[facility], [place] [address]GRZ Auto #/vol (Bld)7.8 10*3/uLNormal4.5 - 13.5[facility] CenterComment on above:Performed By: #### CBCDF ####[place] [id number], [place] [address]KWMDORTQTLR SCREENon 23-59-7334oNMJ Coag time (Bld)29 iXzezmy46 - 36[facility] Comment on above:Result Comment: THE APTT IS NO LONGER USED FOR MONITORING UNFRACTIONATED HEPARIN THERAPY. FOR MONITORING HEPARIN THERAPY, USE THE HEPARIN ASSAY.Performed By: #### VTDOH ####[facility], [place] [address]ZNS Coag RelTime (PPP)1.2 {INR}High0.9 - 1.1[facility] CenterComment on above:Performed By: #### VTDOH ####[facility], [place] [address]Ximtsagizdx time (PT) Coag time (PPP) 12.9 sHigh9.8 - 12.7[facility] CenterComment on above:Performed By: #### VTDOH ####[facility] [place] [address] ESR-WESTERGRENon 29-38-1565GFQ-WESTERGREN8 mm/hNormal0 - 13[facility] CenterComment on above:Performed By: #### VTDOH ####[facility], [place] [address]VJOrk 36-02-5889ODR58 U/LNormal5 - 20 [facility] CenterComment on above:Performed By: #### GGT ####[facility], [place] [address]HVTLGXHPQB A1Con 68-72-1413Buhmwborke A1c/Hemoglobin.total mass fraction (Bld)5.6 %NormalCape Regional Medical CenterComment on above:Result Comment: Diagnosis of Diabetes- Adults Non-Diabetic: < or = 5.6% Increased risk for developing diabetes: 5.7- 6.4% Diagnostic of diabetes: > or = 6.5%. Monitoring of Diabetes Age (y) Therap eutic Goal (%) Adults: >18 <7.0 Pediatrics: 13-18 <7.5 7-12 <8.0 0- 6 7.5-8.5 [place] [employer]. Diabetes Care 33(S1), Nov 2009.Performed By: #### VTDOH ####[facility] [place] [address] HEPATIC FUNCTION PANELon 00-23-9084AGE enzyme act/rau946 U/TBuevye95 - 239[facility] CenterComment on above:Performed By: #### HEPFP ####[facility], [place] [address]WKG enzyme act/vol41 U/LHigh3 - 28[facility] CenterComment on above:Result Comment: Patients treated with Sulfasalazine may generate falsely decreased results for ALT.Performed By: #### HEPFP ####[facility], [place] [address]AZY enzyme act/vol25 U/LHigh9 - 24[facility] CenterComment on above:Performed By: #### HEPFP ####[facility], [place] [address]Ybuchqmey mass conc0.3 mg/dLNormal0.0 - 0.9[facility] CenterComment on above:Performed By: #### HEPFP ####[facility], [place] [address]Zjrerhuiv.direct mass conc0.1 mg/dLNormal0.0 - 0.3[facility] CenterComment on above: Performed By: #### HEPFP ####[facility], [place] [address]Neuvfpp mass conc6.7 g/dLNormal6.2 - 7.7[facility] CenterComment on above:Performed By: #### HEPFP ####[facility], [place] [address]OOUX + TIBCon 08-09-2017% SATURATION 13 %Low25 - 45[facility] CenterComment on above:Performed By: #### IRONT ####[facility], [place] [address]Sxxw mass conc53 ug/lZAdqbyi09 - 138[facility] CenterComment on above: Performed By: #### IRONT ####[facility], [place] [address]CXBP539 ug/iOGeeooh269 - 445[facility] Comment on above:Performed By: #### IRONT ####[facility], [place] [address]OTILLGvj 29-04-0660Irmmlh enzyme act/vol17 U/L Normal9 - 82[facility] CenterComment on above:Result Comment: Venipuncture immediately after or during the administration of Metamizole may lead to falsely low results. Testing should be performed immediately prior to Metamizole dosing.Performed By: #### LIPAS ####[facility], [place] [address]KSYQI FUNCTION PANELon 88-27-8790Vamhrce mass conc 4.3 g/dLNormal3.4 - 5.0[facility] CenterComment on above:Performed By: #### VTDOH ####[facility] [place] [address] Performed By: #### HEPFP ####[facility], [place] [address]Skkiv gap 3 molar conc13 mmol/HNkubvc52 - 30[facility] CenterComment on above:Performed By: #### VTDOH ####[facility], [place] [address]Hbqvifi mass conc9.5 mg/dLNormal8.5 - 10.7[facility] CenterComment on above:Performed By: #### VTDOH ####[facility], [place] [address]Kwogazfi molar conc 105 mmol/ZXvirve03 - 107[facility] CenterComment on above:Performed By: #### VTDOH ####[facility], [place] [address]Nalexlvwxn mass conc0.50 mg/dLNormal0.50 - 1.00[facility] Comment on above:Performed By: #### VTDOH ####[facility], [place] [address]Vxpekux mass conc83 mg/fBWqghau15 - 99[facility] CenterComment on above:Performed By: #### VTDOH ####[facility], [place] [address]ARC3 molar conc (Bld)27 mmol/L Rzucmt54 - 27[facility] CenterComment on above:Performed By: #### VTDOH ####[facility] [place] [address] Phosphate mass conc4.1 mg/dLNormal3.0 - 5.4[facility] CenterComment on above:Result Comment: The performance characteristics of phosphorus testing in heparinized plasma have been validated by the individual laboratory site where testing is performed. Testing on heparinizedplasma is not approved by the FDA; however, such approval is not necessary.Performed By: #### VTDOH ####[facility], [place] [address]Sbzcbttbt molar conc 4.1 mmol/LNormal3.5 - 5.3[facility] CenterComment on above:Performed By: #### VTDOH ####[facility] [facility], [place] [address]Glujrm molar maqa516 mmol/QEkpfcl995 - 145[facility] Comment on above:Performed By: #### VTDOH ####[place] [id number], [place] [address]Nacy nitrogen mass conc11 mg/dLNormal6 - 23[facility] CenterComment on above:Performed By: #### VTDOH ####[place] [address] [facility], [place] [address]XPBQXHKNU,FREEon 53-20-5983JHYLUTYJL,FREE1.08 ng/dLNormal0.78 - 1.48[facility] Comment on above:Result Comment: Thyroxine Free testing is performed using different testing methodology at [facility] than at other [facility]. Direct result comparisons should only be made within the same method.. Patients receiving more than 5 mg/day of biotin may have interference in test results. A sample should be taken no sooner than eight hours after previous dose. Contact [phone] additional information.Performed By: #### T4FRE ####[place] [address] [place], [place] [address]IZSet 52-11-3469Krfbptjbxba Qn1.71 m[IU]/LNormal0.44 - 3.98[facility] Comment on above:Result Comment: TSH testing is performed using different testing methodology at [facility] than at other [facility]. Direct result comparisons should only be made within the same method.. Patients receiving more than 5 mg/day of biotin may have interference in test results. A sample should be taken no sooner than eight hours after previous dose. Contact [phone] for additional information.Performed By: #### TSH2 ####[facility], [place] [address]JRTTVSE D, 25-HYDROXYon 78-79-6685CJORVNY D, 25-RONRJZA37 ng/mLAbnoMcKee Medical Center Comment on above:Result Comment: .DEFICIENCY: < 20 NG/MLINSUFFICIENCY: 20-29 NG/MLOPTIMUM LEVEL: 30-80 NG/MLPOSSIBLE TOXICITY: > 80 NG/MLTHIS ASSAY ACCURATELY QUANTIFIES THE SUM OFVITAMIN D3, 25-HYDROXY AND VITD2,25-HYDROXY. Performed By: #### VTDOH ####[facility] [place] [address] Vital Signs Date TimeVital SignValuePerforming DzydzpaemNrxefaoj01-18-7569 20:30-0500Heart rate51 /minEs[facility] Hospitalit [facility]02-19-2025 20:30-0500 Respiratory rate12 /min[facility]02-19-2025 20:30-5333XqN3% (BldA) [Mass fraction]98 %[facility]02-19-2025 19:30-0500Diastolic blood lmizcjws314 mm[Hg][facility]02-19-2025 19:30-0500Heart rate48 /min[facility]02-19-2025 19:30-0500Mean blood vkesnyxi181 mm[Hg][facility]02-19-2025 19:30-0500 Respiratory rate13 /min[facility]02-19-2025 19:30-9259UbL7% (BldA) [Mass fraction]98 %[facility]02-19-2025 19:30-0500Systolic blood cpltejhm468 mm[Hg][facility]02-19-2025 17:53-0500Body .14 [degF][facility]02-19-2025 17:53-0500Diastolic blood acakaawr39 mm[Hg][facility]02-19-2025 17:53-0500Heart rate64 /min[facility]02-19-2025 17:53-0500Respiratory rate20 /min[facility] 01-16-2025 17:53-3144HcR5% (BldA) [Mass fraction]100 %[facility]02-19-2025 17:53-0500Systolic blood jbxyuqtu701 mm[Hg][facility]12-02-2024 00:01-0500Diastolic blood gdjilqkv46 mm[Hg][facility] [employer] Work Phone: [phone] [place], [place] 3018412-02-2024 00:01-0500 Heart rate72 /[place] [facility] Work Phone: [phone] [place], [place] 3018412-02-2024 00:01-0500 Respiratory rate16 /[employer] Work Phone: [facility]12-02-2024 00:01-0500 SaO2% (BldA) [Mass fraction]99 %[employer] Work Phone: [facility]12-02-2024 00:01-0500 Systolic blood ugiyjhtu638 mm[Hg][employer] Work Phone: [phone]-[facility]12-01-2024 18:07-0500 Body .48 cmSJamOrigin Work Phone: [phone]-[facility]12-01-2024 18:07-0500 Body frciwouocvb36.6 [degF][facility] [employer] Work Phone: [phone] [place], [place] 3018412-01-2024 18:07-0500 Body xzykql03.85 kgSereagleville hospital [employer] Work Phone: [phone]09-06-2024 23:10-0400 Diastolic blood kdhjeweb38 mm[Hg]Services [facility] [employer] Work Phone: [phone]09-06-2024 23:10-0400 Heart rate95 /[facility] [employer] Work Phone: [phone] [place], [place] [address]109-06-2024 23:10-0400 Respiratory rate18 /[facility] [employer] Work Phone: [phone])[address] [place], [place] [address]109-06-2024 23:10-0400 SaO2% (BldA) [Mass fraction]99 %[employer] Work Phone: [phone] [place], [place] [address]109-06-2024 23:10-0400 Systolic blood yektolxa089 mm[Hg]Services [facility] [employer] Work Phone: [phone]09-06-2024 20:35-0400 Body mcnuzb047.48 [facility]SSt[facility] Work Phone: [phone] [place], [place] [address]109-06-2024 20:35-0400 Body dttoyhsdloa10.1 [degF]Services [facility] [employer] Work Phone: [phone]09-06-2024 20:35-0400 Body wopkyn31.71 kgSereagleville hospital [employer] Work Phone: [phone] [place], [place] 3018409-02-2024 22:55-0400 Diastolic blood ddamlwvx88 mm[Hg][facility]09-02-2024 22:55-0400Heart rate50 /[facility]09-02-2024 22:55-0400Mean blood rolhosyu00 mm[Hg][facility]09-02-2024 22:55-0400 Respiratory rate16 /[facility]09-02-2024 22:55-7560TwR3% (BldA) [Mass fraction]98 %Cresencio Abel [address] [place], [place] 3576409-02-2024 22:55-0400 Systolic blood mm[Hg]Cresencio Abel [address]09-02-2024 19:28-0400Body mrneiyohbmm07.06 [degF]Cresencio Abel [address]09-02-2024 19:28-0400 Diastolic blood ietjriij22 mm[Hg]Cresencio Abel [address]09-02-2024 19:28-0400Heart rate55 /minTim Colten [address] [place], [place] 3576409-02-2024 19:28-0400 Respiratory rate16 /[facility]09-02-2024 19:28-9382HgS5% (BldA) [Mass fraction]97 %[facility]09-02-2024 19:28-0400 Systolic blood ehpbzrok788 mm[Hg]Cresencio Abel [address] [place], [place] 3576404-22-2024 00:10-0400 Diastolic blood zpqglsil96 mm[Hg]Services [facility] Work Phone: [facility]04-22-2024 00:10-0400 Heart tuse748 /[facility] Work Phone: [facility]04-22-2024 00:10-0400 Respiratory rate18 /[facility] Work Phone: [facility]04-22-2024 00:10-0400 SaO2% (BldA) [Mass fraction]100 %[employer] Work Phone: [facility]04-22-2024 00:10-0400 Systolic blood wjggqgno456 mm[Hg]Services [facility] [employer] Work Phone: [facility]04-21-2024 22:03-0400 Body qoefra034.02 cmServices [facility] Work Phone: [facility]04-21-2024 22:03-0400 Body fxswniucske81.3 [degF]Services [facility] [employer] Work Phone: [facility]04-21-2024 22:03-0400 Body idtzfd97.2 kgServices [facility] Work Phone: [facility]04-18-2024 13:43-0400 Diastolic blood gunqzdwe77 mm[Hg][facility] 03-15-2024 13:43-0400Heart rate51 /minVan [facility]04-18-2024 13:43-0400Mean blood wfkepaja108 mm[Hg][facility]04-18-2024 13:43-0400Respiratory rate16 /[facility]04-18-2024 13:43-5993BfO7% (BldA) [Mass fraction] 100 %[facility]04-18-2024 13:43-0400Systolic blood dltpakey362 mm[Hg][facility]04-18-2024 12:01-0400Diastolic blood joqsvmha67 mm[Hg][facility]04-18-2024 12:01-0400Heart rate52 /minVan [facility]04-18-2024 12:01-0400Mean blood throywrx734 mm[Hg][facility]04-18-2024 12:01-4449KgJ4% (BldA) [Mass fraction]100 %[facility]04-18-2024 12:01-0400Systolic blood pressure 148 mm[Hg][facility]04-18-2024 10:35-0400Body quaikwiwnqu96.52 [degF][facility]04-18-2024 10:35-0400Diastolic blood jaliorrj99 mm[Hg][facility]04-18-2024 10:35-0400Heart rate60 /min[facility]04-18-2024 10:35-0400Respiratory rate18 /min[facility]04-18-2024 10:35-5263ElI0% (BldA) [Mass fraction]98 %[facility]04-18-2024 10:35-0400Systolic blood pressure 143 mm[Hg][facility]04-16-2024 22:00-0400 Diastolic blood ekiixald448 mm[Hg]Femi Roman [address] [place], [place] 3576404-16-2024 22:00-0400Heart rate53 /minFemi Roman [address] [place], [place] 3576404-16-2024 22:00-0400Mean blood dyrzannu445 mm[Hg]Femi Roman [address] [place], [place] 3576404-16-2024 22:00-4132CvQ8% (BldA) [Mass fraction]100 %Femi Roman [address] [place], [place] 3576404-16-2024 22:00-0400 Systolic blood iqtivoyo888 mm[Hg]Femi Jessie [address] [place], [place] 3576404-16-2024 21:00-0400 Diastolic blood wgxapikw116 mm[Hg]Femi Jessie [address] [place], [place] 3576404-16-2024 21:00-0400Heart rate93 /minFemi Roman [address] [place], [place] 3576404-16-2024 21:00-0400Mean blood ilsqrfdt624 mm[Hg]Femi Roman [address] [place], [place] 3576404-16-2024 21:00-0400 Respiratory rate21 /minJomarylu Roman [address] [place], [place] 3576404-16-2024 21:00-0578NdV3% (BldA) [Mass fraction]98 %Femi Roman [address] [place], [place] 3576404-16-2024 21:00-0400 Systolic blood dzwqaiek788 mm[Hg]Femi Roman [address] [place], [place] 3576404-16-2024 20:00-0400 Diastolic blood rqjxztis142 mm[Hg]Femi Roman [address] [place], [place] 3576404-16-2024 20:00-0400Heart rate50 /Tiffany Roman [address] [place], [place] 3576404-16-2024 20:00-0400Mean blood psqfmahp249 mm[Hg]Femi Roman [address] [place], [place] 3576404-16-2024 20:00-0400 Systolic blood qxhdzieu440 mm[Hg]Femi Roman [address] [place], [place] 3576404-16-2024 19:38-0400 Respiratory rate14 /minFemi Roman [address] [place], [place] 3576404-16-2024 18:36-0400 Respiratory rate18 /minJomarylu Jessie [address] [place], [place] 3576404-16-2024 17:51-0400Body lhaxowjzjfm63.24 [degF]Femi Roman [address] [place], [place] 3576404-16-2024 17:36-0400Body rqctigthezc61.24 [degF][facility]04-16-2024 17:36-0400Heart rate61 /[facility]04-16-2024 17:36-0400 Respiratory rate18 /[facility]09-03-2023 18:09-0400Body bqkpif834.48 cmSJamOrigin Work Phone: [facility]09-03-2023 18:09-0400 Body cigpocxxops59.6 [degF][employer] Work Phone: [phone]-[facility]09-03-2023 18:09-0400 Body hiqqse94 kgSereagleville hospital [employer] Work Phone: [phone]-[facility]09-03-2023 18:09-0400 Diastolic blood mm[Hg][employer] Work Phone: [phone]-[facility]09-03-2023 18:09-0400 Heart rate87 /[employer] Work Phone: [phone]-[facility]09-03-2023 18:09-0400 Respiratory rate18 /[employer] Work Phone: [phone]-[facility]09-03-2023 18:09-0400 SaO2% (BldA) [Mass fraction]98 %[employer] Work Phone: [phone]-[facility]09-03-2023 18:09-0400 Systolic blood lanjwzfi836 mm[Hg][facility] [employer] Work Phone: [phone]-[facility]06-28-2023 13:11-0400 Diastolic blood mneroeuk10 mm[Hg][facility] [employer] Work Phone: [facility]06-28-2023 13:11-0400 Heart rate60 /[employer] Work Phone: [phone]-[facility]06-28-2023 13:11-0400 Respiratory rate16 /[facility]Sg[facility] Phone: [phone]-[facility]06-28-2023 13:11-0400 SaO2% (BldA) [Mass fraction]97 %Services [employer] Phone: [facility]06-28-2023 13:11-0400 Systolic blood mm[Hg]Services [employer] Phone: [phone]-[facility]06-28-2023 11:56-0400 Inhaled oxygen flow rate6 L/[facility] [employer] Phone: [phone]-[facility]06-28-2023 11:54-0400 Body psnhyzhclns77.2 [degF]Services [employer] Phone: [phone]-[facility]06-28-2023 09:39-0400 Body vednrg769.02 cmSguthrie corning hospital [employer] Phone: [phone]-[facility] CenterTri[facility]06-28-2023 09:39-0400 Body mass index (BMI) [Percentile] Per age and sex96.6 %Services [facility] [employer] Phone: [phone]-[facility]06-28-2023 09:39-0400 Body mass index (BMI) [Ratio]33.6 kg/u9Crnydijm [employer] Phone: [facility]06-28-2023 09:39-0400 Body kcvzov38.18 kgSereagleville hospital [employer] Phone: [facility]06-26-2023 08:00-0400 Body zjgaen751.48 cmThomas [employer]lex[employer] Other [employer] Other 06-26-2023 08:00-0400Body mass index (BMI) [Ratio] 34.75 kg/l2Fzxisb [employer] Other [employer] Other 06-26-2023 08:00-0400Body vafxjb29.18 kgThomas Olexa Other [place] [employer] Other 02-10-2023 14:08-0500Body aexpth123.48 cmServices [employer] Work Phone: [phone]-[facility]02-10-2023 12:34-0500 Body lgjnncxmjuc38.1 [degF]Services [facility] [employer] Work Phone: [phone] [place], [place] 2302102-10-2023 12:34-0500 Diastolic blood owikycwi66 mm[Hg]Services [facility] [employer] Work Phone: [phone]02-10-2023 12:34-0500 Heart rate75 /[facility] [employer] Work Phone: [phone] [place], [place] 2302102-10-2023 12:34-0500 SaO2% (BldA) [Mass fraction]100 %Services [facility] [employer] Work Phone: [phone] [place], [place] 2302102-10-2023 12:34-0500 Systolic blood mm[Hg]Services [facility] [employer] Work Phone: [phone] [place], [place] 2302102-10-2023 11:57-0500 Respiratory rate18 /[facility] [employer] Work Phone: [phone] [place], [place] 2302102-10-2023 06:00-0500 Body hfewxq94.2 kgSerucla medical center, s[facility]es [facility] [employer] Work Phone: [phone] [place], [place] 2302102-09-2023 18:29-0500 Diastolic blood mm[Hg]Services [facility] [employer] Work Phone: [phone] [place], [place] 2302102-09-2023 18:29-0500 Heart rate64 /[facility] [employer] Work Phone: [phone] [place], [place] 2302102-09-2023 18:29-0500 Respiratory rate16 /[facility] [employer] Work Phone: [phone] [place], [place] 2302102-09-2023 18:29-0500 SaO2% (BldA) [Mass fraction]98 %Services [employer] Work Phone: [phone]02-09-2023 18:29-0500 Systolic blood mm[Hg]Services [facility] [employer] Work Phone: [phone] [place], [place] 1809102-09-2023 11:12-0500 Body qkyqrg015.48 [facility] Center[facility] [facility] Work Phone: [phone] [place], [place] 1809102-09-2023 11:12-0500 Body zeiismnczly97 [degF]Services [facility] [employer] Work Phone: [phone]02-09-2023 11:12-0500 Body usfulw30.11 kgSerCJW Medical Center [employer] Work Phone: [phone] [place], [place] 1809102-05-2023 04:00-0500 Heart rate62 /[employer] Work Phone: [phone] [place], [place] 1809102-05-2023 04:00-0500 Respiratory rate18 /[employer] Work Phone: [phone] [place], [place] 1809102-05-2023 04:00-0500 SaO2% (BldA) [Mass fraction]100 %Services [facility] [employer] Work Phone: [phone] [place], [place] 1809102-05-2023 02:37-0500 Diastolic blood ylfhoxzk83 mm[Hg]Services [facility] [employer] Work Phone: [phone] [place], [place] 1809102-05-2023 02:37-0500 Systolic blood uqvvjmbx439 mm[Hg]Services [facility] [employer] Work Phone: [phone] Cross [address] [place], [place] 1809102-05-2023 01:14-0500 Body .48 [facility] HospitalXplorn[facility] [employer] Work Phone: 1(923)59498 [address]02-05-2023 01:14-0500 Body najilkgmlag29 [degF]Services [facility] [employer] Work Phone: 1(844)26698 [address]02-05-2023 01:14-0500 Body .11 [facility]Serucl[facility], [facility] Better [facility] Work Phone: 1(829)781-[facility]02-03-2023 12:11-0500 Heart rate70 /[facility] Work Phone: 1(286)54698 [address]02-03-2023 12:08-0500 Body .48 [facility] [employer] Work Phone: 1(542)77698 [address]02-03-2023 12:08-0500 Body pwuvnhpumrd51.7 [degF]Services [facility] [employer] Work Phone: 1(881)34198 [address]02-03-2023 12:08-0500 Body cbiiul38 [facility] [employer] [facility] Work Phone: 1(204)78298 [address]02-03-2023 12:08-0500 Diastolic blood pdprgutm60 mm[Hg]Services [facility] [employer] Work Phone: 1(712)77998 [address]02-03-2023 12:08-0500 Respiratory rate18 /[facility] [employer] Work Phone: 1(841)89398 [address]02-03-2023 12:08-0500 SaO2% (BldA) [Mass fraction]99 %Services [facility] [employer] Work Phone: 1(252)[address] [place], [place] 1809102-03-2023 12:08-0500 Systolic blood pbgnxxru279 mm[Hg]Services [facility] [employer] Work Phone: 1(229)[address] [place], [place] 1809112-13-2022 15:15-0500 Body yetucm776.48 [facility] [employer] Work Phone: 1(855)31198 [address]12-13-2022 15:15-0500 Body cycypbsbsfb11.4 [degF]Services [facility] [employer] Work Phone: 1(069)24498 [address]12-13-2022 15:15-0500 Body coabpq88.64 [facility]Magn[facility] [employer] [facility] Work Phone: 1(177)80398 [address]12-13-2022 15:15-0500 Diastolic blood pjihtlng20 mm[Hg]Services [facility] [employer] Work Phone: 1(419)[address] [place], [place] 1809112-13-2022 15:15-0500 Heart rate95 /minSJam[employer] Work Phone: 1(530)[address] [place], [place] 1809112-13-2022 15:15-0500 Respiratory rate16 /minSJamOrigin [employer] Work Phone: 1(439)[address] [place], [place] 1809112-13-2022 15:15-0500 SaO2% (BldA) [Mass fraction]100 %Services [facility] [employer] Work Phone: 1419)[address] [place], [place] 1809112-13-2022 15:15-0500 Systolic blood toytepee861 mm[Hg]Services [facility] [employer] Work Phone: 1(287)[address] [place], [place] 1809112-11-2022 13:40-0500 Diastolic blood tyhbeaxj49 mm[Hg]Services [facility] [employer] Work Phone: 1(983)[address] [place], [place] 1809112-11-2022 13:40-0500 Heart rate68 /minSThe [employer] Work Phone: 1419)[address] [place], [place] 1809112-11-2022 13:40-0500 Respiratory rate16 /minSIf [facility]mad[facility] [employer] Work Phone: 1(525)[address] [place], [place] 1809112-11-2022 13:40-0500 SaO2% (BldA) [Mass fraction]100 %Services [facility] [employer] Work Phone: 1(660)[address] [place], [place] 1809112-11-2022 13:40-0500 Systolic blood fcawnlou962 mm[Hg]Services [facility] [employer] Work Phone: 1(462)[address] [place], [place] 1809112-11-2022 11:05-0500 Body dgccszjkwol49.2 [degF]Services [facility] [employer] Work Phone: 1(638)[address] [place], [place] 1809112-11-2022 11:04-0500 Body ksczbo355.75 cmServices [employer] Work Phone: 1(816)[address] [place], [place] 1809112-11-2022 11:04-0500 Body kgServices [employer] Work Phone: 1(780)[address] [place], [place] 1809112-06-2022 09:53-0500 Diastolic blood gxqqkajr90 mm[Hg]Services [facility] [employer] Work Phone: 1(126)85898 [address]12-06-2022 09:53-0500 Heart rate50 /minS[employer] Work Phone: 1(516)14198 [address]12-06-2022 09:53-0500 Respiratory rate18 /minSguthrie corning hospital [employer] Work Phone: 1(157)61798 [address]12-06-2022 09:53-0500 SaO2% (BldA) [Mass fraction]98 %Services [facility] [employer] Work Phone: 1(803)35198 [address]12-06-2022 09:53-0500 Systolic blood hciiugei138 mm[Hg]Services [facility] [employer] Work Phone: 1(740)04798 [address]12-06-2022 03:00-0500 Body .48 [facility]SMultiCare [facility] compareit4me Work Phone: 1(854)[address] [place], [place] 1809112-06-2022 03:00-0500 Body cjhlrcimwlx19.4 [degF]Services [facility] [employer] Work Phone: 1(181)19798 [address]12-06-2022 03:00-0500 Body nyalui38 [facility]SerSur[facility]4me Work Phone: 1(918)41998 [address]12-04-2022 10:05-0500 Diastolic blood hjohyhcs19 mm[Hg]Services [facility] [employer] Work Phone: 1(004)42698 [address]12-04-2022 10:05-0500 Heart rate59 /minSguthrie corning hospital [employer] Work Phone: 1(799)567-[address] [place], [place] 2302112-04-2022 10:05-0500 Respiratory rate18 /[facility] CenterIf [facility]mad[facility] [employer] Work Phone: 1(595)56298 [address]12-04-2022 10:05-0500 SaO2% (BldA) [Mass fraction]98 %Services [facility] [employer] Work Phone: 1(172)76998 [address]12-04-2022 10:05-0500 Systolic blood dishmgpt967 mm[Hg]Services [facility] [employer] Work Phone: 1(256)168-[address] [place], [place] 2302112-04-2022 08:50-0500 Body hzegah070.48 [facility] [employer] Work Phone: 1(970)30198 [address]12-04-2022 08:50-0500 Body sazrripcumc47.2 [degF]Services [facility] [employer] Work Phone: 1(432)11298 [address]12-04-2022 08:50-0500 Body .91 kgSerCJW Medical Center [employer] [facility] Work Phone: 1(147)50398 [address]12-02-2022 12:01-0500 Body .48 [facility] [employer] Work Phone: 1(133)81298 [address]12-02-2022 12:01-0500 Body tfbvndiosgi64.8 [degF]Services [facility] [employer] Work Phone: 1(627)816-[address] [place], [place] 2302112-02-2022 12:01-0500 Body jxaqec59 kgSerCJW Medical Center [employer] Work Phone: 1(843)90298 [address]12-02-2022 12:01-0500 Diastolic blood aelcmbjw58 mm[Hg]Services [facility] [employer] Work Phone: 1(266)66898 [address]12-02-2022 12:01-0500 Heart rate60 /[facility] [employer] Work Phone: 1(812)157-[address] [place], [place] 2302112-02-2022 12:01-0500 Respiratory rate18 /[facility] [employer] Work Phone: 1(152)176-[address] [place], [place] 2302112-02-2022 12:01-0500 SaO2% (BldA) [Mass fraction]99 %Services [facility] [employer] Work Phone: 1(628)419-[address] [place], [place] 2302112-02-2022 12:01-0500 Systolic blood bpcpcnyr132 mm[Hg]Services [facility] [employer] Work Phone: 1(402)82798 [address]09-25-2022 12:00-0400 Body toeqjukoups88 [degF]Services [employer] Phone: 1(980)75529 [address]09-25-2022 12:00-0400 Diastolic blood stwpupge78 mm[Hg]Services [employer] Work Phone: [address] [place], [place] 8086109-25-2022 12:00-0400 Heart rate80 /[employer] Work Phone: [address] [place], [place] 8086109-25-2022 12:00-0400 Respiratory rate18 /minSJamOrigin Work Phone: 1419)[address] [place], [place] 8086109-25-2022 12:00-0400 SaO2% (BldA) [Mass fraction]95 %Services [employer] Work Phone: [address] [place], [place] 8086109-25-2022 12:00-0400 Systolic blood myseadsm297 mm[Hg]Services [employer] Work Phone: [address] [place], [place] 8086109-25-2022 05:50-0400 Body tzrxqa27.5 kgServic [employer] Work Phone: [address] [place], [place] 8086109-24-2022 11:27-0400 Body dotpuf090.48 cmServices [employer] Work Phone: 1(171)[address] [place], [place] 8086109-23-2022 16:34-0400 Diastolic blood ldobwhqa24 mm[Hg]Services [employer] Work Phone: [address] [place], [place] 8086109-23-2022 16:34-0400 Heart rate68 /[employer] Work Phone: 1419)48129 [address]09-23-2022 16:34-0400 Respiratory rate20 /minSJamOrigin Work Phone: [address] [place], [place] 8086109-23-2022 16:34-0400 SaO2% (BldA) [Mass fraction]96 %Services [employer] Work Phone: 1(527)65729 [address]09-23-2022 16:34-0400 Systolic blood zyjvnabl472 mm[Hg]Services [employer] Work Phone: 1(068)32829 [address]09-23-2022 11:58-0400 Body mynams259.48 [employer] Work Phone: 1(777)33429 [address]09-23-2022 11:58-0400 Body tpbuatvanxg42.9 [degF]Services [employer] Work Phone: 1(768)67629 [address]09-23-2022 11:58-0400 Body doziho94.37 kgSerXola Work Phone: 1(178)64229 [address]09-23-2022 01:00-0400 Body hgckugajqhk05.9 [degF]Services [employer] Work Phone: 1(585)61229 [address]09-23-2022 01:00-0400 Diastolic blood enekopjy18 mm[Hg]Services [employer] Work Phone: 1(815)09429 [address]09-23-2022 01:00-0400 Heart rate53 /[employer] Work Phone: 1(164)18629 [address]09-23-2022 01:00-0400 Respiratory rate16 /[employer] Work Phone: 1(681)17229 [address]09-23-2022 01:00-0400 SaO2% (BldA) [Mass fraction]97 %Services [employer] Phone: 1(040)84629 [address]09-23-2022 01:00-0400 Systolic blood mm[Hg]Services [employer] Work Phone: 1(063)42929 [address]09-22-2022 18:57-0400 Body dihrvt058.48 cmSJamOrigin Work Phone: 1(754)90329 [address]09-22-2022 18:57-0400 Body heyyes12.37 kgSerXola Work Phone: 1(113)93129 [address]09-22-2022 14:00-0400 Diastolic blood onxrbioj35 mm[Hg]Services [employer] Work Phone: 1(587)56329 [address]09-22-2022 14:00-0400 Heart rate67 /[employer] Work Phone: 1(241)579-[address] [place], [place] 3018409-22-2022 14:00-0400 Respiratory rate20 /minSlicking memorial hospitalCista System Work Phone: 1(915)31829 [address]09-22-2022 14:00-0400 SaO2% (BldA) [Mass fraction]99 %Services [employer] Work Phone: 1(847)64229 [address]09-22-2022 14:00-0400 Systolic blood phkncoqu070 mm[Hg]Services [employer] Work Phone: 1(501)84729 [address]09-22-2022 00:40-0400 Body hctfyy153.48 cmSguthrie corning hospital [employer] Work Phone: 1(494)12729 [address]09-22-2022 00:40-0400 Body ulfkhruehvl23.8 [degF]Services [employer] Work Phone: 1(548)98729 [address]09-22-2022 00:40-0400 Body cwdeog10.11 kgSereagleville hospital [employer] Work Phone: 1(249)55229 [address]09-21-2022 15:28-0400 Body hwhkyvleifq48.8 [degF]Services [employer] Work Phone: 1(400)60129 [address]09-21-2022 15:28-0400 Diastolic blood zzkyjgwp77 mm[Hg]Services [employer] Work Phone: 1(481)40129 [address]09-21-2022 15:28-0400 Heart rate54 /[place] [facility] [employer] Work Phone: 1(790)41329 [address]09-21-2022 15:28-0400 Respiratory rate20 /[facility] [employer] Work Phone: 1(068)89429 [address]09-21-2022 15:28-0400 SaO2% (BldA) [Mass fraction]100 %Services [employer] Work Phone: 1(638)94729 [address]09-21-2022 15:28-0400 Systolic blood qrqejxlk485 mm[Hg]Services [employer] Work Phone: 1(419)[address] [place], [place] 8086109-21-2022 12:26-0400 Body xipidr162.48 [facility] Work Phone: 1(533)[address] [place], [place] 8086109-21-2022 12:26-0400 Body pzxtva75.11 kgSereagleville hospital Sch[employer] Phone: 1(477)[address] [place], [place] 8086107-13-2022 10:25-0400 Diastolic blood fmthotok39 mm[Hg]Services [employer] Work Phone: 1(422)[address] [place], [place] 8086107-13-2022 10:25-0400 Heart rate83 /[facility] [employer] Phone: 1(297)[address] [place], [place] 8086107-13-2022 10:25-0400 Respiratory rate20 /[facility] [employer] Phone: 1(271)[address] [place], [place] 8086107-13-2022 10:25-0400 SaO2% (BldA) [Mass fraction]98 %Services [employer] Phone: 1(828)[address] [place], [place] 8086107-13-2022 10:25-0400 Systolic blood fodpcknu36 mm[Hg]Services [employer] Phone: 1(790)[address] [place], [place] 8086107-13-2022 08:46-0400 Body bkqeux757.48 [facility] CenterIf [facility] Canmadison hospital [employer] Phone: 1(098)[address] [place], [place] 8086107-13-2022 08:46-0400 Body mass index (BMI) [Percentile] Per age and sex96.2 %Services [employer] Phone: 1(639)95529 [address]07-13-2022 08:46-0400 Body mass index (BMI) [Ratio]32 kg/m2Fzktbtey [employer] Phone: 1(980)[address] [place], [place] 8086107-13-2022 08:46-0400 Body qayoinhdpsh79.4 [degF]Services [employer] Phone: 1(017)[address] [place], [place] 8086107-13-2022 08:46-0400 Body grhswy10.37 kgSereagleville hospital [employer] Work Phone: 1(345)[address] [place], [place] 8086106-19-2022 13:52-0400 Diastolic blood dxawagis49 mm[Hg]Services [employer] Work Phone: 1(609)290-[address] [place], [place] 3018406-19-2022 13:52-0400 Heart rate66 /minServCista System Work Phone: 1(846)31129 [address]06-19-2022 13:52-0400 Respiratory rate18 /minServices [employer] Work Phone: 1(099)49029 [address]06-19-2022 13:52-0400 SaO2% (BldA) [Mass fraction]100 %Services [employer] Work Phone: 1(330)58429 [address]06-19-2022 13:52-0400 Systolic blood opzrddxm808 mm[Hg]Services [employer] Phone: 1(915)[address]06-19-2022 11:54-0400 Body zqywvl407.48 cmSguthrie corning hospital [employer] Work Phone: 1(747)06029 [address]06-19-2022 11:54-0400 Body mass index (BMI) [Percentile] Per age and sex95.5 %Services [employer] Phone: 1(696)05329 [address]06-19-2022 11:54-0400 Body mass index (BMI) [Ratio]31.1 kg/s8Doggyiwz [employer] Phone: 1(120)117-[address] [place], [place] 3018406-19-2022 11:54-0400 Body cmegzsutjwq48.4 [degF]Services [employer] Work Phone: 1(235)29629 [address]06-19-2022 11:54-0400 Body xwdxle67.11 kgSereagleville hospital [employer] Phone: 1(758)70629 [address]06-18-2022 15:30-0400 Diastolic blood ysxxvehm54 mm[Hg]Services [employer] Phone: 1(983)82529 [address]06-18-2022 15:30-0400 Heart rate52 /minServC[employer] System Work Phone: 1(790)589-[address] [place], [place] 3018406-18-2022 15:30-0400 Respiratory rate14 /minServices [employer] Work Phone: 1(422)151-[address] [place], [place] 3018406-18-2022 15:30-0400 SaO2% (BldA) [Mass fraction]99 %Services [employer] Work Phone: 1(984)28929 [address]06-18-2022 15:30-0400 Systolic blood apjwdhlz657 mm[Hg]Services [employer] Work Phone: [phone])27629 [address]06-18-2022 12:28-0400 Body djmoek252.48 cmSguthrie corning hospital [employer] Work Phone: 1(648)82729 [address]06-18-2022 12:28-0400 Body mass index (BMI) [Percentile] Per age and sex95.5 %Services [employer] Work Phone: 1(359)77729 [address]06-18-2022 12:28-0400 Body mass index (BMI) [Ratio]31 kg/s6Qgijkoyi [employer] Work Phone: 1(180)224-[address] [place], [place] 3018406-18-2022 12:28-0400 Body hszimmfqnhu97.1 [degF]Services [facility] [employer] Work Phone: 1(287)24[address]06-18-2022 12:28-0400 Body evpedj71 kgSereagleville hospital [employer] Work Phone: 1(800)29529 [address]06-17-2022 22:56-0400 Body srkrdiyzlki26.1 [degF]Services [facility] [employer] Work Phone: 1(982)11829 [address]06-17-2022 22:56-0400 Diastolic blood dxscjxcu55 mm[Hg]Services [facility] [employer] Work Phone: 1(013)47529 [address]06-17-2022 22:56-0400 Heart rate18 /minSlicking memorial hospitalCista System Work Phone: 1(968)78029 [address]06-17-2022 22:56-0400 Respiratory rate18 /minSlicking memorial hospitalCista System Work Phone: 1(558)395-[address] [place], [place] 3018406-17-2022 22:56-0400 SaO2% (BldA) [Mass fraction]94 %Services [employer] Phone: 1(416)884-[address] [place], [place] 3018406-17-2022 22:56-0400 Systolic blood knskksja222 mm[Hg]Services [employer] Phone: 1(267)89[address]06-17-2022 02:18-0400 Body xthqpy781.48 cmSlicking memorial hospitalices [employer] Work Phone: 1(918)980-[address] [place], [place] 3018406-17-2022 02:18-0400 Body mass index (BMI) [Percentile] Per age and sex95.5 %Services [employer] Phone: 1(152)485-[address] [place], [place] 3018406-17-2022 02:18-0400 Body mass index (BMI) [Ratio]31.1 kg/m2Xwellzdg [employer] Phone: 1(676)34029 [address]06-17-2022 02:18-0400 Body kpbgezorikf10.9 [degF]Services [employer] Phone: 1(735)44629 [address]06-17-2022 02:18-0400 Body .11 kgSereagleville hospital [employer] Phone: 1(013)586-[address] [place], [place] 3018406-17-2022 02:18-0400 Diastolic blood szqektxt84 mm[Hg]Services [employer] Phone: 1(237)638-[address] [place], [place] 3018406-17-2022 02:18-0400 Heart rate54 /minSlicking memorial hospitalCista System Work Phone: 1(138)473-[address] [place], [place] 3018406-17-2022 02:18-0400 Respiratory rate18 /minSlicking memorial hospitalCista System Work Phone: 1(813)159-[address] [place], [place] 3018406-17-2022 02:18-0400 SaO2% (BldA) [Mass fraction]98 %Services [employer] Phone: 1(210)263-[facility]06-17-2022 02:18-0400 Systolic blood kpeivsnt422 mm[Hg]Services [employer] Phone: 1(652)838-[address] [place], [place] 3018406-16-2022 12:09-0400 Heart rate72 /[facility] [employer] Phone: 1(970)475-[address] [place], [place] 3018406-16-2022 12:09-0400 Respiratory rate18 /[facility] [employer] Phone: 1(020)[address] [place], [place] 8086106-16-2022 12:09-0400 SaO2% (BldA) [Mass fraction]98 %Services [facility] [employer] Phone: 1(188)45629 [address]06-16-2022 10:32-0400 Body .21 [facility] [employer] Phone: 1(020)21929 [address]06-16-2022 10:32-0400 Body mass index (BMI) [Percentile] Per age and sex95.9 %Services [facility] [employer] Phone: 1(873)52329 [address]06-16-2022 10:32-0400 Body mass index (BMI) [Ratio]31.6 kg/u9Gqavtror [employer] Phone: 1(666)36329 [address]06-16-2022 10:32-0400 Body grltfvqxruy87.1 [degF]Services [facility] [employer] Phone: 1(611)84529 [address]06-16-2022 10:32-0400 Body xozjwl30.11 kgSerCJW Medical Center [employer] Phone: 1(668)50829 [address]06-16-2022 10:32-0400 Diastolic blood nynglosz98 mm[Hg]Services [facility] [employer] Phone: 1(290)72929 [address]06-16-2022 10:32-0400 Systolic blood vqtyanzq238 mm[Hg]Services [facility] [employer] Phone: 1(047)231-[address] [place] [address] Encounters Encounter DateEncounter TypeCare ProviderFacilityStart: 08-28-2025 End: 43-21-9923Ypwqsgh encounter procedureKelsey Espino APRN PAYMENT REP-BC-[facility] [place] Work Phone: Start: 08-28-2025 End: 99-38-4766kfxozfinosHPXUFHNGR NO [facility] Work Phone: Start: 08-22-2025 End: 36-74-9423Ihqhtggch department patient visitFederico Randolph Facility:FTMCStart: 05-06-2025 End: 36-63-5365nuafxnvcejFgenm T [facility] Work Phone: Start: 05-06-2025 End: 66-14-4272Bdmzckpq Kimber Dahl MD Work Phone: [facility]-LAB Path Spec [facility]Start: 05-04-2025 End: 81-60-1863jvdqfrkffmVpyraii M [facility] Work Phone: Start: 05-04-2025 End: 82-73-6516Tfogpxsk Kimber Dahl MD Work Phone: [facility]-LAB Path Spec [facility]ospStart: 01-23-2025 End: 29-80-9785zknaiwtzoxNwntamzd Family [facility] Work Phone: [facility] Work Phone: Start: 01-23-2025 End: 17-71-6872Pneqpjjv ReferredSerCJW Medical Center Work Phone: [facility]-LAB Path Spec [facility]ospStart: 01-16-2025 End: 85-18-5078Fjnrbmcku department patient visitAstrit H [facility] Start: 10-28-2024 End: 33-23-3479Muskdqbgh department patient visitServices [facility] Work Phone: [facility]-Emergency Room Work Phone: Start: 34-74-8614Srr-patient / Non-visitServices [facility] Work Phone: [facility] Work Phone: Start: 08-03-2024 End: 34-11-5845Gvstpykcn department patient visitServices [facility] Work Phone: [facility]-Emergency Room Work Phone: Start: 08-01-2024 End: 55-71-3068Zyfdivpft department patient visitJEARAMIS MENDESSONFacility:FT Start: 07-30-2024 End: 36-69-9448Cfcgrmjnh department patient visitTim ThomasFacility:FTMCStart: 03-18-2024 End: 25-20-7634Hdbowwcdo department patient visitServices [facility] Work Phone: [facility]-Emergency Room Work Phone: Start: 03-15-2024 End: 75-33-9132Ibohbdqyi department patient visitAstrit Raf [facility] Start: 03-13-2024 End: 33-65-9484Euusoaliq department patient visitJomarylu [facility] Start: 07-31-2023 End: 32-72-5294Ytnuqjguu department patient visitServices [facility] Work Phone: [facility]-Emergency Room Work Phone: Start: 07-14-2023 End: 78-13-2285anhibobkzfZhmaufal [facility] Work Phone: [facility] Work Phone: Start: 07-14-2023 End: 17-60-6251Orqbmae encounter procedureServices [facility] Work Phone: [facility] C[facility]-XRay [facility] Start: 06-16-2023 End: 28-09-1177thfnfonhxcWvspcjkl Family Health Work Phone: 1([phone] [place] [address] Ctr Work Phone: Start: 06-16-2023 End: 62-55-9498Ipowbyt encounter procedureServices [employer] Work Phone: [facility]-XRay [facility] Start: 95-82-3631Dizxiy follow up visit related to original pxThomas OlexaFPG [facility] OrthopedicsStart: 06-02-2023 End: 02-16-2680htawkrhoqmCrjuttsd [facility] [employer] Work Phone: [employer] Other Start: 06-02-2023 End: 14-60-0546Ozpvfgk encounter procedureServCista System Work Phone: [facility] C[facility]-XRay [facility] Start: 05-25-2023 End: 44-55-3420Ybnuzeyha to same day surgery centerServCista System Work Phone: [facility] Ctr-Surgery Center [facility] [place]Start: 05-25-2023 End: 53-03-3633drufvcjwmvDtydztkq [employer] Work Phone: [facility] Work Phone: Start: 05-24-2023 End: 74-86-8358enchigubbpDtqzwb Olexa Other [employer] Other Start: 66-85-9621Qfraiphdm encounterThomas OlexaFPG [facility] OrthopedicsStart: 05-23-2023 End: 94-77-3315ygjudqkkmsIxiyma Olexa Other [employer] Other Start: 06-17-8149Gcsxxchgy for other preprocedural examinationThomas OlexaFPG [facility] OrthopedicsStart: 87-19-0143Zgecnh outpatient new 45 minutesThomas OlexaFPG [facility] OrthopedicsStart: 03-15-2023 End: 10-13-1229Avrpzpsc ReferredSereagleville hospital [facility] Work Phone: [facility] Ctr-[place] [facility] ServicesStart: 01-26-2023 End: 24-17-0471bruxatcmlvXA DOCTOR MISCFacility:U8Pzggn: 01-06-2023 End: 52-51-9857Gmqyamifmv and management of inpatientSHighsmith[facility] Work Phone: [facility] Work Phone: Start: 98-05-4277ecziulhkphk encounterServPending sale to [facility] Work Phone: [facility] Work Phone: Start: 01-06-2023 End: 38-37-0868BnvmyeqxAtrium Health [facility] Work Phone: [facility] Work Phone: Start: 01-02-2023 End: 16-09-8634RazmxkngAtrium Health [facility]son Work Phone: [facility] Ctr-Emergency Room Work Phone: Start: 01-01-2023 End: 72-30-3144livquzvdmlYLWOUU DIAB .Facility:L7Oflyi: 12-31-2022 End: 39-46-8878Rsbehnerg department patient visitServPending sale to [facility] Work Phone: [facility] Work Phone: Start: 12-31-2022 End: 17-70-2278XmbnjeafAtrium Health Anson Work Phone: [facility]-Emergency Room Work Phone: Start: 11-09-2022 End: 58-88-7216Udpzlpyad department patient visitServPending sale to [facility] Work Phone: [facility] Work Phone: Start: 11-09-2022 End: 32-11-9163CccyllowPending sale to [facility] Work Phone: [facility]Emer[facility] RoomStart: 11-07-2022 End: [id number] department patient visitServices [facility] Work Phone: [facility] Work Phone: Start: 11-07-2022 End: [id number] [facility] Work Phone: [facility]-Emergency RoomStart: 11-02-2022 End: [id number] department patient visitServices [facility] Work Phone: [facility] Work Phone: Start: 11-02-2022 End: 18-07-6061Cpmuhuus [facility] Work Phone: [facility]-Emergency RoomStart: 10-31-2022 End: 44-26-5156Rjqymhusj department patient visitServices [facility] Work Phone: [facility] Work Phone: Start: 10-31-2022 End: 25-74-9294Ghqyfvpp [facility] Work Phone: [facility]-Emergency RoomStart: 10-29-2022 End: 65-35-2386Uegmvjncl department patient visitServices [facility] Work Phone: [facility]-Emergency RoomStart: 10-29-2022 End: 25-12-4773Wcridoji [facility] Work Phone: [facility]-Emergency RoomStart: 08-27-2022 End: 37-36-3349Mshboqae [facility] Work Phone: [facility] ServicesStart: 08-27-2022 End: 93-01-0203Eoxmcdye [facility] Work Phone: [facility] ServicesStart: 08-20-2022 End: 85-83-5008Zaqpufcikw and management of inpatientServmadison hospital Scholrly Phone: [facility]-[address] Med SurgStart: 08-20-2022 End: 38-92-7989Xhwjcehk [facility] Senior Work Phone: [facility]-3 [facility] Med SurgStart: 08-19-2022 End: 45-29-7450Vylikqsmy department patient visitServCritical access hospital Work Phone: [facility]-Emergency RoomStart: 08-19-2022 End: 56-06-6772Yspmnmzm [facility] Work Phone: [facility] Ctr-Emergency RoomStart: 08-19-2022 End: 69-65-2631Udooengpu department patient visitServCritical access hospital [employer] Phone: [facility] Ctr-Emergency RoomStart: 08-19-2022 End: 08-74-0239Eobhqmfx [facility] Work Phone: [facility] Ctr-Emergency RoomStart: 08-18-2022 End: 81-02-8363Igsrihckn department patient visitServCritical access hospital [employer] Phone: [facility] Ctr-Emergency RoomStart: 08-18-2022 End: 50-86-0275Gamyqmct [facility] Work Phone: [facility] Ctr-Emergency RoomStart: 06-25-2022 End: 94-07-4014Zwiablxq ReferredSerSur[facility] Serveron Phone: [facility] Ctr-[place] Family Health ServicesStart: 06-09-2022 End: 47-15-8591Syaccqiix to same day surgery centerServmadison hospital Scholrly Phone: [facility] Ctr-Digestive HealthStart: 06-07-2022 End: 93-94-9073Wwbkrrm encounter procedureServmadison hospital Scholrly Phone: [facility] Pur-Ixr-Ukhxiluq Testing Start: 05-26-2022 End: 79-84-3571Escqypbx ReferredServic Family [facility] Work Phone: [facility] ServicesStart: 34-52-6744imbmmtfuikFddtjc Jenkins RNNURSE ON CALLComment on above:Abdominal PainStart: 05-16-2022 End: 03-64-7658Toijkwgir department patient visitServices [facility] Work Phone: [phone] [place] [address] Ctr-Emergency RoomStart: 05-15-2022 End: 84-15-1817Meuixveup department patient visitServices [facility] Work Phone: [phone] [place] [address] Ctr-Emergency RoomStart: 05-14-2022 End: 67-58-0300Bhupzegch department patient visitServices [facility] Work Phone: [phone] [place] [address] Ctr-Emergency RoomStart: 05-14-2022 End: 16-85-4742Wqjkpdims department patient visitServices [facility] Work Phone: [facility] Ctr-Emergency RoomStart: 05-13-2022 End: 50-04-9548Jimrctnqh department patient visitServices [facility] Work Phone: [phone] [place] [address] Ctr-Emergency RoomStart: 37-67-8347Osirayjbry and management of inpatientBridget Magy Unger Facility:RBCStart: 55-41-2751Yjjdydz encounterJUDY B SPLIRAISFacility:9193Start: 01-36-1088Hgquaha encounterMere Solorio MaxwellFacility:9193Start: 04-14-2018 Patient encounterJUDY B SPLAWSKIFacility:9193Start: 82-56-9489Bfcsajz encounter Mere PuenteswellFacility:9193Start: 83-27-3927Umyoluv encounterJUDY B SPLIRAIS Facility:9193Start: 32-55-6128Kcchkek encounterJUDY B SPLAWSKIFacility:9193 Start: 51-61-7882Pismhoy encounterJUDY B SPLAWSKIFacility:9193Start: 09-28-2017 Patient encounterKatmilo Solorio MaxwellFacility:9305Start: 94-38-5205Onwzrta encounterDALI Marcus KEYONNAFacility:[facility] CtrStart: 08-09-2017 End: 19-84-6754Eeuqgvkoon and management of inpatientAIMEE WILKERSONPUSHMATAHA HOSPITAL – ANTLERSLUIS EDUARDO Facility:RBC Procedures DateProcedureProcedure DetailPerforming ClinicianStart: 65-24-0497Yjffv culture Jasmeet Dahl MD Work Phone: Start: 77-88-2331Vqxyf [facility] HospitalJamOrigin Work Phone: Start: 92-47-0019W-ray of right kneeServices [employer] Work Phone: Start: 82-08-2512I-ray of right kneeSguthrie cor[facility] hospital [employer] Work Phone: Start: 33-23-7951C-ray of right kneeSlicking memorial hospitalices [employer] Work Phone: Start: 09-41-1904Topolphbtxq of kneeSlicking memorial hospitalCista System Work Phone: Start: 63-10-4074Rchfosabdwh Panel (PCR)Services [employer] Work Phone: Start: 53-04-4975Ooatwcqz tomography of abdomen and pelvis with contrastSlicking memorial hospitalActionIQ Work Phone: Start: 42-13-1729Eroef chest X-raySlicking memorial hospitalTotal Prestige Phone: Start: 14-41-5272Bpfvkn X-raySlicking memorial hospitalActionIQ Work Phone: Start: 51-06-2114Ripoc cultureSlicking memorial hospitalActionIQ Work Phone: Start: 96-53-8400Yzdtifxuz A and B virus antigen assay Services [employer] Work Phone: Start: 21-57-9045Qputz cultureSThe [employer] Network Work Phone: Start: 77-20-5027Pdyct [facility] CenterAction[facility] Work Phone: Start: 09-93-8337Xbskv cultureServActionIQ Work Phone: Start: 75-98-8621Hkxtmrsp tomography of abdomen and pelvis with contrastServices [employer] Work Phone: Start: 02-49-0740HghcyhlveimtwbiizipsqsmpykIajmffjt Scholrly Phone: Start: 34-08-9835Zacaxovn tomography of abdomen and pelvis with contrastServices [employer] Work Phone: Start: 13-24-4389Hwakykqbvhwv of Nutritional Substance into Upper GI, Via Natural or Artificial OpeningKathleen MaxwellStart: 97-90-7914Abellzmgjb of Larynx, Via Natural or Artificial Opening Endoscopic Mere MaxwellStart: 30-41-3499Ndzjyrn Bleeding in Respiratory Tract, Via Natural or Artificial OpeningKathleen MaxwellStart: 79-40-7758Zbigepkv of Duodenum, Via Natural or Artificial Opening Endoscopic, DiagnosticKateen MaxwellStart: 22-43-8308Opztxpov of Lower Esophagus, Via Natural or Artificial Opening Endoscopic, DiagnosticKathleen MaxwellStart: 88-63-7629Nvwghpjl of Stomach, Pylorus, Via Natural or Artificial Opening Endoscopic, Diagnostic [facility] HospitalSARS Antigen (LFIA)Services [employer] Work Phone: SARS Antigen (LFIA)Services [employer] Work Phone: SARS Antigen (LFIA)Services [employer] Work Phone: Urine [facility] Center[facility] Work Phone: Urine [facility] Center[facility] Work Phone: Urine [facility] CenterC[facility] Work Phone: Urine [facility] CenterAction[facility] Work Phone: [facility] [employer] Work Phone: [facility] [employer] Work Phone: [facility] [employer] Work Phone: Plan of Treatment DateCare ActivityDetailAutrStart: 06-95-6480Wenmv [facility] Hospitaltart: 31-21-3759Rqhpipra identified in Urine by CultureUrine CultureSamaritan Hospitaltart: 14-71-9837Bsulqaxq identified in Urine by CultureUrine CultureSamaritan Hospitaltart: 05-06-2025 Urine cultureSamaritan Hospitaltart: 20-56-2823Bfkksriu identified in Urine by CultureUrine [facility] Start: 55-14-8493Spsbe [facility] Hospitaltart: 01-23-2025 Bacteria identified in Urine by CultureUrine [facility] Centertart: 27-28-1978Dpjzo [facility] Hospitaltart: 91-26-5001BanebtraeSamaritan Hospitaltart: 51-41-3046CjtopdhufSamaritan Hospitaltart: 81-72-0269IdbzzrnxmSamaritan Hospitaltart: 33-59-6926PgivxrttoSamaritan Hospitaltart: 23-42-6588Guaat chemistry [facility] Hospitaltart: 80-36-2054RgbheehydSamaritan Hospitaltart: 65-51-9109Boenw chemistrySamaritan Hospitaltart: 01-07-2023 End: 04-85-0561KtrvopjgsSamaritan Hospitaltart: 04-89-8585Ibwgyvb referral to dietitianSamaritan Hospitaltart: 39-72-5866Wgyifhan admissionSamaritan Hospitaltart: 28-31-8823AydspgyjySamaritan Hospitaltart: 13-03-0313Dsymqjiw tomography of abdomen and pelvis with contrastSamaritan Hospitaltart: 36-21-0226WR Abdomen and Pelvis W contrast [facility] Hospitaltart: 01-06-2023 End: 09-49-4111GyzckasxhFulton County Health Center CenterStart: 87-97-6321Rtows culture [facility] Hospitaltart: 12-31-2022 End: 85-08-7226EvnajrwpxSamaritan Hospitaltart: 36-12-6490EwjjcelcbFulton County Health Center CenterStart: 77-77-2376XjiqyyddcSamaritan Hospitaltart: 40-79-1200RfwizmwpmSamaritan Hospitaltart: 73-06-3009GfxfysipsOhiohealth [facility] Work Phone: Start: 37-48-0943Ocxwzssj admissionSamaritan Hospitaltart: 22-15-6414AdzqarlkaFulton County Health Center Ctr Work Phone: Start: 94-26-0041UxzgsdtyeFulton County Health Center Ctr Work Phone: Start: 83-35-3394Tmgkzwpp tomography of abdomen and pelvis with contrastCT abdomen pelvis w [facility] Start: 17-71-8470UP Abdomen and Pelvis W contrast [facility] Work Phone: Start: 40-78-9004UhzugxadfFulton County Health Center Ctr Work Phone: Start: 99-97-0847Hvwxuwcjs vaccinationINFLUENZA (Season Ended)[facility] Limatart: 59-30-3697HaxgykamuFulton County Health Center Ctr Work Phone: Start: 75-15-9281TNPOERAVL SCREENING (18-24)CHLAMYDIA SCREENING (18-24)[facility]: 97-54-3278RE (GONORRHEA) SCREENING (18-24)GC (GONORRHEA) SCREENING (18-24)[facility]: 2022 HEPATITIS C SCREENINGHEPATITIS C SCREENINGSCCI Hospital Limatart: 93-17-1793URA SCREENINGHIV SCREENINGSCCI Hospital Limatart: 50-99-5190AKKDKGLAVKUUL CONJUGATE (1 - 2-dose series)MENINGOCOCCAL CONJUGATE (1 - 2-dose series)[facility] Start: 53-33-8255AOBJ TO ADULT TRANSITION ANNUAL ASSESSMENTPEDS TO ADULT TRANSITION ANNUAL ASSESSMENTSCCI Hospital Limatart: 21-20-6385Kwbkh depression screening assessmentDEPRESSION SCREENINGCleFisher-Titus Medical Centertart: 21-08-9255ECBT TO ADULT TRANSITION INITIAL DISCUSSIONPEDS TO ADULT TRANSITION INITIAL DISCUSSION [facility]: 83-86-9678UNB VACCINE (1 - 2-dose series)HPV VACCINE (1 - 2-dose series)[facility]: 12-95-6964ULKVPSIIJNAEW B: Consider based on risk (1 of 2 - Risk Bexsero 2-dose series)MENINGOCOCCAL B: Consider based on risk (1 of 2 - Risk Bexsero 2-dose series)[facility]: 57-25-5782Zzcro microalbumin profileDTAP,TDAP,TD (1 - Tdap)[facility]: 2009 COVID-19 VACCINE (#1)[facility] HospitalAmphetamines [Presence] in UrineOhiohealth [facility] Work Phone: Bacteria identified in Blood by CultureTrihealthBacteria identified in Urine by CultureTrihealthBacteria identified in Urine by CultureTrihealthBarbiturates [Presence] in UrineOhiohealth [facility] Work Phone: Basophils [#/volume] in Blood by Automated count TrihealthBasophils/100 leukocytes in Blood by Automated countTrihealthBenzodiazepines [Presence] in Urine [facility] Work Phone: Bilirubin measurement, urineOhiohealth Arthur G.[facility]. [facility] Work Phone: Cannabinoids [Presence] in Urine by Screen method [facility] Work Phone: Chlamydia trachomatis DNA [Presence] in Unspecified specimen by JANAK with probe detectionTrihealthChlamydia trachomatis rRNA [Presence] in Cervix by JANAK with probe detectionTrihealthChoriogonadotropin ( test) [Presence] in Urine [facility] Work Phone: Cocaine [Presence] in UrineOhiohealth [facility] Work Phone: Color of UrineOhiohealth Arthur G.[facility]. [facility] Work Phone: Detection of hemoglobinOhiohealth Arthur G.[facility]. [facility] Work Phone: Eosinophils/100 leukocytes in Blood by Automated count TrihealthErythrocyte distribution width [Ratio] by Automated countTrihealthErythrocytes [#/volume] in Blood TrihealthGlucose [Mass/volume] in Urine by Test strip [facility] Work Phone: Hematocrit [Volume Fraction] of [facility] SystemHemoglobin [Mass/volume] in [facility] Health SystemHomogenous nuclear Ab pattern [Titer] in [facility] Work Phone: Hudenver papilloma virus 16+18+31+33+35+39+45+51+52+56+58+59+66+68 DNA [Presence] in Cervix by Probe with signal amplificationTrihealthHuman papilloma virus 16+18+31+33+35+39+45+51+52+56+58+59+68 DNA [Presence] in Cervix by Probe with signal amplificationTrihealthLeukocytes [#/volume] corrected for nucleated erythrocytes in Blood by Automated counTrihealthLeukocytes [#/volume] in [facility] SystemLymphocytes [#/volume] in Blood by Automated [facility] HospitalLymphocytes/100 leukocytes in Blood by Automated [facility] HospitalMCH [Entitic mass] by Automated [facility] HospitalMCHC [Mass/volume] by Automated [facility] HospitalMCV [Entitic volume] by Automated [facility] Measurement of ketones in urine using dipstickFulton County Health Center Ctr Work Phone: Monocytes [#/volume] in Blood by Automated count TrihealthMonocytes/100 leukocytes in Blood by Automated countTrihealthNeisseria gonorrhoeae DNA [Presence] in Unspecified specimen by JANAK with probe detectionTrihealthNeisseria gonorrhoeae rRNA [Presence] in Cervix by JANAK with probe detectionTrihealthNeutrophils [#/volume] in Blood by Automated countTrihealthNeutrophils/100 leukocytes in Blood by Automated [facility] HospitalNuclear Ab [Titer] in [facility] Work Phone: Nucleated erythrocytes [Presence] in Blood by Automated [facility] HospitalPatient [facility] Work Phone: Patient referralFulton County Health Center [facility]tr Work Phone: Phencyclidine [Presence] in UrineFulton County Health Center Ctr Work Phone: Platelet mean volume [Entitic volume] in Blood by Automated countTrihealthPlatelets [#/volume] in Blood TrihealthProtein measurement, urineFulton County Health Center Ctr Work Phone: [phone]-PyG-2 (COVID-19) N gene [Presence] in Respiratory specimen by JANAK with probe detectionFulton County Health Center Ctr Work Phone: Trichomonas vaginalis DNA [Presence] in Unspecified specimen by JANAK with probe detectionTrihealthUrinalysis, specific gravity measurementFulton County Health Center Ctr Work Phone: Urine cultureUrine CultureTrihealthUrine cultureTrihealthUrine dipstick for nitrite [facility] Work Phone: Urine dipstick for specific gravityFulton County Health Center Ctr Work Phone: Urine pH testFulton County Health Center Ctr Work Phone: Urobilinogen concentration, test strip measurement [facility] Work Phone: [facility] Immunizations Immunization DateImmunizationNotesCare XdcnuothAysxiczw43-45-1537jvearln toxoid, reduced diphtheria toxoid, and acellular pertussis vaccine, adsorbedServices [facility] Work Phone: [facility]02-10-2017Human Papillomavirus 9-valent vaccineThomas Olexa Other [place] [employer] Other [id number], unspecified formulationServices [facility] Work Phone: [facility]10-10-2016influenza, injectable, quadrivalent, preservative freeThomas Olexa Other [facility]10-10-2016Human Papillomavirus 9-valent vaccineThomas Olexa Other [employer] Other [id number], unspecified formulationServices [employer] Work Phone: [facility]08-04-2016human papilloma virus vaccine, quadrivalentThomas Olexa Other [facility]08-04-2016 meningococcal polysaccharide (groups A, C, Y and W-135) diphtheria toxoid conjugate vaccine (MCV4P)Colten Olexa Other [facility]08-04-2016tetanus toxoid, reduced diphtheria toxoid, and acellular pertussis vaccine, adsorbed Colten [employer]lex[employer] Other [facility]10-05-2015influenza, injectable, quadrivalent, preservative freeThomas Olexa Other [facility]09-22-2014influenza, injectable, quadrivalent, contains preservativeServices [employer] Work Phone: [facility]09-22-2014influenza, injectable, quadrivalent, preservative freeThomas Olexa Other [employer] Other [id number], seasonal, injectable, preservative freeThomas Olexa Other [facility] Payers DatePayer CategoryPayerPolicy [id number]-pay2019MedicaidCARESOURCE MEDICAID [facility] MEDICAID [id number] 2019-Present [phone] [address] [place] [address] [id number] .1.278080.3.57[id number] 2.16.840.1.994715.3.57[id number] 2.840.1.868620.3.57[id number] 2.840.1.996415.3.57[id number] 2.0.1.335810.3.57[id number] 2.0.1.413267.3.57[id number] 2.0.1.254252.3.57[id number] 2.0.1.742269.3.57[id number] 2.0.1.171585.3.57[id number] 2..1.885367.3.57[id number] 2.0.1.900017.3.57[id number] 2..1.289779.3.57[id number] 2.840.1.242762.3.579.2.593 [id number] [id number] [id number]-[id number] [id number]-[id number] 31vh24ur-36ev-0j00-[id number] 2.16.840.1.4[id number] 2..0.1.388796.3.579.2.531 [id number] 2..0.1.2[id number] 2..0.1.0[id number] 2.0.1.760401.3.579.2.531 Social History DateTypeDetailFacilityStart: 10-09-2021 End: 35-26-4100Mbwfmak smoking status NHISNever smoked tobaccoMercy Health Perrysburg Hospital Start: 99-59-8453Ggoxtfi use and exposureSmokeless tobacco non-userSCCI Hospital Limatart: 81-97-0415Soycqfd intakeLifetime non-drinker (finding)[facility]: 10-12-8437Nqdrmdc SDOH Alcohol Sfcyawfbu5Ynghwrrpl ClinicStart: 02-17-3835Lzl Assigned At BirthNot on fileSCCI Hospital Limatart: 06-09-2022 End: 09-43-4717Uahorya smoking status NHISSmoker (finding)[facility]: 66-13-6818Ivx Assigned At BirthFemalMansfield Hospitaltart: 08-18-2022 End: 95-37-7518Bitabxe smoking status NHISCurrent some day smokerSamaritan Hospitaltart: 78-34-9654Gtezkqk smoking status NHISEx-smoker (finding)[facility]aritan Hospitalex Assigned At [facility] CenterTobacco smoking statusNeKnox Community Hospitaltart: 01-24-2025 End: 06-50-8673RtxTzbjbq (finding)TrihealthNEGATED: Highlighted rowTrihealth Medical Equipment Procedure CodeEquipment CodeEquipment Original TextEquipment IdentifierDates Arthroscopy, kneeTendon/ligament bone anchor, non-bioabsorbable ()[id number] FDAStart: 35-05-4130Ehanonlcmhk, knee Soft-tissue/mesh anchor, non-bioabsorbable()[id number] FDAStart: 72-02-2133Eeirlsxfggf, kneeTendon/ligament bone anchor, bioabsorbable ()[id number] FDAStart: 05-25-2023 Goals DatePatient GoalDesired Activity/State Functional Status HbfhElsxgdwensTsbswnTjckrwdg96-64-1189Hodkbijyjn StatusN/[facility]09-02-2024Functional StatusN/[facility]04-18-2024 Functional StatusN/[facility]04-16-2024Functional StatusN/[facility]02-10-2023Functional statusPatient at Baseline [facility] Work Phone: [phone]fsjuxhk statusPatient at Baseline [facility] Work Phone: [phone]cfuxamfg statusPatient at Baseline [facility] Work Phone: Mental Status TumaOelbgwincwIeqdjbRrrydyry01-31-1752Yvfaxclpx functionPatient at Baseline [facility] Work Phone: [phone]yeekdx functionPatient at Baseline [facility] Work Phone: [phone]Dwacqwrrp functionPatient at Baseline [facility] Work Phone: Clinical Notes 09-28-2015 to 08-22-2025 Note Date & DjzlYtjhTwrlsiez25-54-1884 NoteED Patient Education Note Gastroenterology Nausea and [...] added (diluted fruit juice). ??? Eat bland, osln-ya-hsiooz foods in small amounts as you are able. These foods include bananas, applesauce, rice, lean meats, toast, and crackers. ??? Avoid fluids that contain a lot of sugar or caffeine, such as energy drinks, sports drinks, andsoda. ??? Avoid alcohol. ??? Avoid spicy or fatty foods. General instructions ??? Take yxkp-etv-nsvkauw and prescription medicines only as told by your health care provider. ??? Drink enough fluid to keep your urine pale yellow. ??? Wash your hands often using soap and water for at least 20 seconds. If soap and water are not available, use hand winderman. ??? Make sure that everyone in your [...] and drinking to prevent dehydration. ??? Take vswm-aey-byzkifv and prescription medicines only as told by [...] Reviewed: 05/21/2022 Elsevier Patient Education ? 2023 Prolify. Obstetrics and Gynecology Hyperemesis Gravidarum Hyperemesis gravidarum [...] It may be associated (more content not included)...[facility]02-19-2025 Hospital Discharge instructions Patient Education 01/16/2025 [...] limityour activities and whether you should start cihxp-br-tnhreo exercises for your injury. Ice Ice your [...] provider. Document Revised: 2021 Document Reviewed: 08/04/2018 Doximity Patient Education 2020 Prolify. 01/16/2025 20:36:16 Contusion Contusion A contusion is [...] are sitting or lyingdown. General instructions Take dvzk-pfy-dpibisz and prescription medicines only as told by [...] provider. Document Revised: 05/02/2023 Document Reviewed: 05/02/2023 Doximity Patient Education 2023 Prolify. 01/16/2025 20:36:16 Fall Prevention in the Home, Adult, Rimg-bv-Qfuw Fall Prevention in the Home, Adult Falls [...] Keep items that you use often in axxm-bv-qdfvm places. Lower the shelves around your home [...] of the way. Do not use floor andorran or wax that makes floors slippery. What [...] Disease Control and Prevention, STEADI: cdc.gov National Keaton on Aging: jacob.nih.gov National Keaton on Aging: jacob.nih.gov Contact a doctor if: [...] provider. Document Revised: 07/18/2023 Document Reviewed: 07/18/2023 Doximity Patient Education 2023 Prolify. Follow Up Care 01/16/2025 17:51:58 With:MODESTA CHAND Address: [address] [place] [phone]- [phone] Business (1) When:2025 20:14:58 Comments:Call Dr for diagnosis based follow [facility] 02-19-2025 NoteED Patient Education Note Caregiving [...] Keep items that you use often in ltag-un-qtrnr places. Lower the shelves around your home [...] the way. ??? Do not use floor andorran or wax that makes floors slippery. What [...] Control and Prevention, ANASTACIO: cdc.gov ??? National Keaton on Aging: jacob.nih.gov ??? National Keaton on Aging: jacob.nih.gov Contact a doctor if: [...] symptoms will go away. (more content not included)...[facility]09-04-2024 NoteED Patient Education Note Gastroenterology Hypokalemia [...] such as yogurt. General instructions ? Take sqej-jyg-kpulajn and prescription medicines only as told by [...] provider. Document Revised: 07/29/2022 Document Reviewed: 07/29/2022 ElseActiveCloud Patient Education ? 2023 Elsevier Inc. Nausea [...] that has water adde (more content not included)...[facility]09-03-2024 Hospital Discharge instructions Patient Education 07/30/2024 [...] water added (diluted fruit juice). Eat bland, ssnz-gr-ewbfci foods in small amounts as you are able. These foods include bananas, applesauce, rice, lean meats, toast, and crackers. Avoid fluids that contain a lot of sugar or caffeine, such as energy drinks, sports drinks, and soda. Avoid alcohol. Avoid spicy or fatty foods. General instructions Take hety-eam-ngvppuo and prescription medicines only as told by your health care provider. Drink enough fluid to keep your urine pale yellow. Wash your hands often using soap and water for at least 20 seconds. If soap and water are not available, use hand winderman. Make sure that everyone in your household [...] eating and drinking to prevent dehydration. Take oxux-sqo-adcuixa and prescription medicines only as told by [...] provider. Document Revised: 05/21/2022 Document Reviewed: 05/21/2022 [employer] Patient Education 2023 Prolify. Follow Up Care 07/30/2024 19:27:35 With:FAMILIA CHAND Address: [facility] [address] [address] Business (1) When:08/02/2024 [facility] 09-02-2024 NoteED Patient Education Note Gastroenterology [...] added (diluted fruit juice). ? Eat bland, rtgh-qn-ssapiz foods in small amounts as you are able. These foods include bananas, applesauce, rice, lean meats, toast, and crackers. ? Avoid fluids that contain a lot of sugar or caffeine, such as energy drinks, sports drinks, and soda. ? Avoid alcohol. ? Avoid spicy or fatty foods. General instructions ? Take bmzm-wow-ysjezbd and prescription medicines only as told by your health care provider. ? Drink enough fluid to keep your urine pale yellow. ? Wash your hands often using soap and water for at least 20 seconds. If soap and water are not available, use hand winderman. ? Make sure that everyone in your [...] and drinking to prevent dehydration. ? Take wccw-rug-xhmplpt and prescription medicines only as told by [...] provider. Document Revised: 05/21/2022 Document Reviewed: 05/21/2022 [employer]imity Patient Education ? 2023 Prolify.[facility] 07-30-2024 Evaluation + Plan noteExtracted from:Title:ED [...] PRN Nausea/Vomiting, # 16 tab(s), Refills(s) 0, Pharmacy:[facility]/pharmacy #[id number], 157, cm, 07/30/24 19:37:00 EDT, Height/Length Dosing, 96.1, kg, 07/30/24 19:37:00 EDT, Weight Dosing promethazine, 12.5 mg = 1 tab(s), Oral, q8hr, PRN as needed for nausea/vomiting, second line, # 10 tab(s), Refills(s) 0, Pharmacy: [facility]/pharmacy #[id number], 157, cm, 07/30/24 19:37:00 EDT, Height/Length Dosing, 96.1, kg, 07/30/24 19:37:00 EDT, Weight Dosing promethazine, 12.5 mg = 1 supp, Rectal, q8hr, PRN as needed for nausea/vomiting, 3rd line, # 6 EA, Refills(s) 0, Pharmacy: [facility]/pharmacy #[id number], 157, cm, 07/30/24 19:37:00 EDT, Height/Length [...] Lipase Level Magnesium Level Saline Lock [facility] 04-18-2024 Hospital Discharge instructions Patient Education [...] careprovider. Do not use recreational drugs. Take vksc-usx-dyjirkw and prescription medicines only as told by [...] provider. Document Revised: 06/08/2022 Document Reviewed: 06/08/2022 D[employer]imity Patient Education 2022 Prolify. 03/15/2024 13:49:41 Nausea and Vomiting, Adult Nausea [...] water added (diluted fruit juice). Eat bland, vpjs-uk-siwzdj foods in small amounts as you are able. These foods include bananas, applesauce, rice, lean meats, toast, and crackers. Avoid fluids that contain a lot of sugar or caffeine, such as energy drinks, sports drinks, and soda. Avoid alcohol. Avoid spicy or fatty foods. General instructions Take tocw-tvo-fkjiioa and prescription medicines only as told by your health care provider. Drink enough fluid to keep your urine pale yellow. Wash your hands often using soap and water for at least 20 seconds. If soap and water are not available, use hand winderman. Make sure that everyone in your household [...] eating and drinking to prevent dehydration. Take obsh-yxy-jsryvwm and prescription medicines only as told by [...] provider. Document Revised: 05/21/2022 Document Reviewed: 05/21/2022 Doximity Patient Education 2022 Prolify. Follow Up Care 03/15/2024 10:34:05 With:Kirk Serrano Address:Unknown When:03/22/2024 13:33:04 Comments:Make sure to follow-up with Dr. Serrano at the surgery clinic in 1 week as instructed. Return to the emergency room if you develop chest pain, shortness of breath or any symptoms. [facility]04-18-2024 Evaluation + Plan noteExtracted from: Title:ED [...] CT Chest w/ Contrast eGFR Magnesium Level [facility]04-17-2024 Hospital Discharge instructions Patient Education 03/13/2024 22:27:59 Nausea and Vomiting, Adult, Khsa-st-Bssw Nausea and Vomiting, Adult Nausea is feeling [...] fruit juice). ?Low-calorie sports drinks. Eat bland, rtas-rr-gsherw foods in small amounts as you are able, such as: ?Bananas. ?Applesauce. ?Rice. ?Low-fat (lean) meats. ?Bernard. ?Crackers. Avoid drinking fluids that have a lot of sugar or caffeine in them. This includes energy drinks, sports drinks, and soda. Avoid alcohol. Avoid spicy or fatty foods. General instructions Take uukm-emt-qyevmjr and prescription medicines only as told by your doctor. Drink enough fluid to keep your pee (urine) pale yellow. Wash your hands often with soap and water for at least 20 seconds. If you cannot use soap and water, use hand winderman. Make sure that everyone in your home [...] your doctor about eating and drinking. Take knxr-hyv-zbbpkvy and prescription medicines only as told by your doctor. Contact your doctor if your symptoms get worse or you have new symptoms. Keep all follow-up visits. This information is not intended to replace advice given to you by your health care provider. Make sure you discuss any questions you have with your health care provider. Document Revised: 05/21/2022 Document Reviewed: 05/21/2022 Doximity Patient Education 2022 Prolify. 03/13/2024 22:27:59 Muscle Strain, Fscs-qv-Zpyx Muscle Strain A muscle strain, or pulled [...] is not too tight. General instructions Take ywtd-uds-odhajjp and prescription medicines only as told by [...] provider. Document Revised: 02/01/2022 Document Reviewed: 02/01/2022 D[employer]imity Patient Education 2022 Prolify. Follow Up Care 03/13/2024 17:33:30 With:MODESTA ARCHIBALD Address: [address] [place] [address] [phone] Business (1) When:03/16/2024 Comments:You can use the medications as prescribed as needed for pain, nausea. Please follow-up with your primary care doctor for further evaluation and management. Please return to the ED if you develop chest pain, difficulty breathing or if any concerning signs or symptoms. [facility]04-16-2024 Evaluation + Plan noteExtracted from: Title:ED [...] # 20 tab(s), Refills(s) 0, Pharmacy: [facility]/pharmacy #[id number], 160, cm, 03/13/24 17:38:00 EDT, Height/Length Dosing, 95.5, kg, 03/13/24 17:38:00 EDT, Weight Dosing orphenadrine, 60 mg = 2 mL, Injection, IV Push, Once, Stop date 03/13/24 20:27:00 EDT, STAT, Start date 03/13/24 20:27:00 EDT, 03/13/24 20:27:00 EDT promethazine, 25 mg = 1 supp, Rectal, q6hr, PRN Nausea/Vomiting, # 6 EA, Refills(s) 0, Pharmacy: [facility]/pharmacy #[id number], 160, cm, 03/13/24 17:38:00 [...] kg, 2.06, m2 XR Chest 2 Views [facility]07-06-2023 Evaluation note* Encounter Date Diagnosis Assessment [...] May,Other specified postprocedural states (ICD-10 - Z98.890) [facility] Other 06-27-2023 Evaluation note* Encounter Date Diagnosis Assessment Notes Treatment Notes Treatment Clinical Notes Apr, Other specified postprocedural s tates (ICD-10 - Z98.890) [employer] Other 06-26-2023 Evaluation note* Encounter Date Diagnosis [...] pain for many months and potentially cause care home pain and stiffness. We have discussed [...] S82.111A) Apr,re-op exam (ICD-10 - Z01.818) [employer] Other 02-10-2023 History and physical note Author Eliana Bautista [facility] January 07, 2023 2:11amNote Date/TimeFebruary 2022 5:30pmMatthew Ville [id number] Hospitalist H&P Signed Patient: Pili Parikh MR#: [id number] : 2005 Acct:[id number] Age/Sex: 17 / F Adm Date: 3 Loc: Room: [address] [place] [address] Type: ADM INOo Attending Dr: Eliana Bautista MD Copies to: [facility] Anette FRANKY Stout MD~ HPI DATE [...] promethazine 25 mg rectal suppository 25 mg MS Q6H PRN Nausea #10 supp 01/02/23 [Rx [...] % (Auto) 19.9 % (.) 01/06/23 14:20 [place] % (Auto) 7.4 % (.) 01/06/23 14:20 Eos % (Auto) 2.3 % (.) 01/06/23 14:20 Baso % (Auto) 0.3 % (.) 01/06/23 14:20 Nucleat RBC Rel Count 0.1 /100 WBC (0-0.5) 01/06/23 14:20 Neut # (Auto) 12.4 x10E3/uL (1.2-7.7) H 01/06/23 14:20 Lymph # (Auto) 3.5 x10E3/uL (1.20-4.8) 01/06/23 14:20 [place] # (Auto) 1.3 x10E3/uL (0.1-1.00) H 01/06/23 [...] pH 6.5 (5.0-9.0) 01/06/23 16:10 Ur Specific [place] 1.027 (1.001-1.030) 01/06/23 16:10 Urine Protein 100 [...] signed by Eliana Bautista MD> 01/07/23 0211 [facility] Work Phone: 1(750) 572-230209-24-2022 Progress note Author Gregorio Carey [facility] August 21, 2022 5:01pmNote Date/TimeSept2021 5:01pm[place] [address] Hospitalist Progress Note Signed Patient: Pili Parikh MR#: [id number] : 2005 Acct:[id number] Age/Sex: 17 / F Adm Date: 2 Loc: Room: [address] [place] [address] Type: ADM IN Attending Dr: Gregorio Carey [...] alot of discomfort. She recalls that the amalgamator told her that in warm water against [...] 1 Gm/10 Ml Udc PO 08/22/23 06:59 TID.AC.[facility] A&P - Hospitalist Assessment/Plan (1) Intractable [...] signed by Gregorio Carey DO> 08/21/22 1701 [facility] Work Phone: 1(376) 357-230409-23-2022 History and physical note Author Gregorio Carey [facility] August 20, 2022 8:17pmNote Date/TimeSeptember 2021 8:17pm[place] [address] Hospitalist H&P Signed Patient: Pili Parikh MR#: [id number] : 2005 Acct:[id number] Age/Sex: 17 / F Adm Date: 2 Loc: Room: [address] [place] [address] Type: ADM IN Attending Dr: Gregorio Carey DO Copies to: [facility] Senior Gregorio Carey DO~ HPI DATE [...] % (Auto) 11.5 % (.) 08/20/22 16:21 [place] % (Auto) 3.7 % (.) 08/20/22 16:21 Eos % (Auto) 0.3 % (.) 08/20/22 16:21 Baso % (Auto) 0.4 % (.) 08/20/22 16:21 Neut # (Auto) 9.2 x10E3/uL (1.2-7.7) H 08/20/22 16:21 Lymph # (Auto) 1.3 x10E3/uL (1.20-4.8) 08/20/22 16:21 [place] # (Auto) 0.4 x10E3/uL (0.1-1.00) 08/20/22 16:21 [...] <Electronically signed by Gregorio Carey DO> 08/20/222016 [facility] Work Phone: 1(716) 843-901006-19-2022 Miscellaneous Notes* Telephone Encounter - Luana Mak [...] if she can find a way to [facility], she will go there. Reason for Disposition Chest pain [1] Chest pain lasts > 5 minutes AND [2] described as crushing, pressure-like, or heavy Protocols used: ABDOMINAL PAIN - OMBVH-QULAO-LW, CHEST OWQH-NSLPD-HJ documented in this encounterMer[facility]12-[facility]-2021 NoteHNO ID: [id number] Author: Rolando Wooten MD Service: ? Author [...] completed when applicable. PROCEDURE NOTE: IANDD right MORTAR MAKER Risks, benefits, personnel and alternatives were explained. The patient wished to proceed. S/he was re-identified and a time out obtained. PROCEDURE drainage right MORTAR MAKER PREOPERATIVE DIAGNOSIS: right peritonsillar abscess POSTOPERATIVE DIAGNOSIS tonsillitis without pus in right peritonsillar area INDICATIONS: chronic right throat pain, worsening, concern for right MORTAR MAKER at outside facility on scan . Drainage [...] there were no complication. MD Rolando Cherry, [facility]11-12-2021 NoteHNO ID: [id number] Author: Rolando Wooten MD Service: ? Author Type: Physician Type: Progress Notes Filed: 11/13/2021 1:09 AM Note Text: [place] [facility] Consult This consult was requested by [...] tonsillitis. Today she has (more content not included)...[facility]11-01-2015 History general Narrative - Reported* Type Description Date Medical History wheezing in coremaker machine Medical Historyintermittent asthmaMedical Historylactose intoleranceMedical HistoryPOTS diag 09/2015Surgical Omkaeclcsbmooeqbzte1769Jcsqylhrbkgmssv History strepthroat, uri, dehydration, otitis [id number] History cuhyvixvufs7551Edorqjmovhbhoxl [facility] [place] vsqhinke[place]- Hospitalization History3 days vomitting blood01/2017Hospitalization History vomiting, abd pain, dehydration [facility]07/22-07/27/2017[facility] Other Evaluation noteNo assessment information available [facility] Work Phone: Evaluation note* Diagnosis Onset Date Resolution Status Nausea & vomiting acute [facility] Work Phone: Evaluation note* Diagnosis Onset Date Resolution Status Dehydration acuteHypokalemiaacuteIntractable nausea and vomitingacuteNausea & vomitingacute [facility] Work Phone: Evaluation note* Diagnosis Onset Date Resolution Status Abdominal pain acuteAcute hypokalemiaacuteChest painacuteDehydrationacuteHypokalemiaacute HypovolemiaacuteMallory-Cotton tearacuteNausea & vomitingacute [facility] Work Phone: History and physical note Author Eliana Bautista [facility] January 07, 2023 2:11amNote Date/TimeFebruary 2022 5:30pm[place] [address] Hospitalist H&P Signed Patient: Pili Parikh MR#: [id number] : 2005 Acct:[id number] Age/Sex: 17 / F Adm Date: 3 Loc: Room: [address] [place] [address] Type: ADM INOo Attending Dr: Eliana Bautista MD Copies to: [facility] FRANKY Starkey MD~ HPI DATE OF [...] promethazine 25 mg rectal suppository 25 mg MS Q6H PRN Nausea #10 supp 01/02/23 [Rx [...] % (Auto) 19.9 % (.) 01/06/23 14:20 [place] % (Auto) 7.4 % (.) 01/06/23 14:20 Eos % (Auto) 2.3 % (.) 01/06/23 14:20 Baso % (Auto) 0.3 % (.) 01/06/23 14:20 Nucleat RBC Rel Count 0.1 /100 WBC (0-0.5) 01/06/23 14:20 Neut # (Auto) 12.4 x10E3/uL (1.2-7.7) H 01/06/23 14:20 Lymph # (Auto) 3.5 x10E3/uL (1.20-4.8) 01/06/23 14:20 [place] # (Auto) 1.3 x10E3/uL (0.1-1.00) H 01/06/23 [...] pH 6.5 (5.0-9.0) 01/06/23 16:10 Ur Specific [place] 1.027 (1.001-1.030) 01/06/23 16:10 Urine Protein 100 [...] signed by Eliana Bautista MD> 01/07/23 0211 [facility] Work Phone: Hospital course Narrative No data available for this section [facility] Dis[facility] instructionsOhio[facility] Work Phone: Hospital Discharge instructions Additional Instructions Follow-up with your primary care doctor Return to ED if develop worsening symptoms or concernsOhiohealth [facility] Work Phone: Hospital Discharge instructions Additional Instructions Follow-up with your primary care doctor Return to the ED if you develop worsening symptoms or concernsOhiohealth [facility] Work Phone: Hospital Discharge instructions Additional Instructions Take Phenergan as prescribed for nausea vomiting. Take Motrin and Tylenol as needed for muscle aches and pains. Take Carafate as prescribed.[facility] Work Phone: Hospital Discharge instructions Additional [...] you should first call your surgeon at [phone] for advice. If your are unable to contact your surgeon, seek help from a hospital emergency room. [facility] Work Phone: Hospital Discharge instructions Additional [...] with your family physician as soon as possible.[facility] Work Phone: Progress note No data available for this section [facility] HospitalReason for referral (narrative)No reason for referral information availableFulton County Health [facility] Work Phone: Summary Purpose Family [...] DATE CREATED AUTHOR AUTHOR'S ORGANIZ ATION 07/14/2018 [facility] DATE CREATED AUTHOR AUTHOR'S ORGANIZ ATION 01/04/2022 [facility] DATE CREATED AUTHOR AUTHOR'S ORGANIZ ATION 02/02/2023 [facility] DATE CREATED AUTHOR AUTHOR'S ORGANIZ ATION 07/30/2024 [facility] DATE CREATED AUTHOR AUTHOR'S ORGANIZ ATION 08/02/2024 [facility] DATE CREATED AUTHOR AUTHOR'S ORGANIZ ATION 08/05/2024 [facility] DATE CREATED AUTHOR AUTHOR'S ORGANIZ ATION 01/18/2025 [facility] DATE CREATED AUTHOR AUTHOR'S ORGANIZ ATION 08/30/2025 [facility] DATE CREATED AUTHOR AUTHOR'S ORGANIZ ATION 08/31/2025 [facility] DATE CREATED AUTHOR AUTHOR'S ORGANIZ ATION 09/06/2025 [facility] Source Comments (unrecognize d section and content) In the event this informatio n is protected by the Federal Confidentiality of Alcohol and Drug Abuse Patient Records regulations: The Federal rules restrict any use of the information to criminally investigate or prosecute any alcohol or drug abuse patient.[facility] Reason for Visit (unrecogniz ed section and content) ReasonCommentsAbdominal Pain Care Teams (unrecognized sec tion and content) Team Status: Inactive Member Role Status Dates Services [facility] Primary Care Provider Ac latesha Chand SENIOR CONTROLS ENGINEER-CAttending ProviderActive Team Status: Inactive Member Role Status Dates Services [facility] Primary Care Provider Active Modesta Chand NP-CAttenca ProviderActive Team Status: Inactive Member Role Status Dates Services [facility] Primary Care Provider Active Ulises Wiley ProviderActive Team Status: Inactive Member Role Status Dates Services [facility] Primary Care Provider Active Kahlil Gardiner ProviderActive Team Status: Inactive Member Role Status Dates Services [facility] Primary Care Provider Active Josh Lopezrjoy ProviderActive Team Status: Inactive Member Role Status [facility] Services [facility] Primary Care Provider Active Kahlil Saldaña ProviderActive Team Status: Inactive Member Role Status [facility] Primary Care Provider Active Kahlil [...] Dates Art Bianchi DO Emergency Provider Active [facility] ProviderActive Team Status: Inactive Member Role Status [facility] Primary Care Provider Ac Kahlil Hilliard ProviderActive Team Status: Inactive Member Role Status [facility] Primary Care Provider Ac latesha Bianchi DOKenarjoy ProviderActive Team Status: Inactive Member Role Status [facility] Primary Care Provider Active Stevie Munoz ProviderActive Team Status: Active Member Role Status [facility] Services [facility] Primary Care Provider Active Team Status: Inactive Member Role Status [facility] Primary Care Provider Active Kahlil Houston ProviderActive Team Status: Active Member Role Status [facility] Primary Care Provider Active Sejal [...] BE BASED ON THE PRIMARY CLINICAL RECORDS. [employer] [facility]. provides no warranty or guarantee of the accuracy or completeness of information in this document.
[2025-11-02 19:17] LABS: Hematocrit 35.1 % (36.0-48.0); Hemoglobin 11.8 g/dL (12.0-16.0); Immature Granulocytes Abs Auto 0.05 10^3/uL (0.00-0.03); Immature Granulocytes Pct Auto 0.4 % (0.0-0.5); Lymphocytes Absolute Auto 2.0 10^3/uL (1.2-3.8); Mean Corpuscular HGB Conc 33.6 g/dL (29.9-35.2); Mean Corpuscular Hemoglobin 30.9 pg (26.7-34.0); Mean Corpuscular Volume 91.9 fL (81.0-99.0); Platelet Count 203 10^3/uL (150-450); Red Blood Count 3.82 10^6/uL (4.20-5.40); White Blood Count 12.9 10^3/uL (4.0-11.0)
[2025-11-02 19:36] LABS: Glucose Urine UA NEGATIVE (NEGATIVE)
[2025-11-02 19:44] LABS: Cast Seen? NONE SEEN #/LPF (NONE SEEN); Crystals Seen? None Seen #/HPF (None Seen); Urine Culture Indicated YES-FRMC
--- NOTE | 2025-11-04 10:01 | PC.NURSE ---
11/04/25: URINE CULTURE NEGATIVE FOR GROWTH
== END 2025-11-02 19:54 | disposition home or self-care (01) ==
PROVIDERS: Personal Emergency Response Attendant; Emergency Provider Emergency Medicine
DX: O20.9 Hemorrhage in early pregnancy, unspecified (principal); O99.332 Smoking (tobacco) complicating pregnancy, second trimester; F17.200 Nicotine dependence, unspecified, uncomplicated; Z3A.17 17 weeks gestation of pregnancy
CPT/HCPCS: 36415; 76815; 81001; 85025; 86900; 86901; 87086; 99284; 99285

== ENCOUNTER 2025-11-25 10:41 | Emergency (ER) | payer OTHER, SELFPAY ==
--- OUTSIDE RECORDS SUMMARY | 2025-01-30 08:00 | XMS_ITS ---
Author Organization [employer] Address [address] [place] [address] Care Team Providers Care Children'S Entertainer Name Role Phone Modesta Lira Primary Care Provider Kelsey Espino Unavailable [phone] Modesta Chand Unavailable [phone] REASON FOR VISIT Pots disease, vomiting Social History Sex Assigned At : Social History Observation Description Sex Assigned At Female Encounters Encounter Location Date Provider Diagnosis [facility] [address] [place] [address] 01/30/2025 Modesta Chand Plan Of Treatment No Information Progress Notes * COLTONANGELOPILI ADOB: [birth year] (20 yo F)Acc No.[id number]:01/30/2025 Progress Note Patient: PILI PENALOZA :?Modesta Chand CNPDOB:2005???Age:20 Y ???Sex:FemaleDate:01/30/2025Phone:[phone]:[facility] [place], [place]Pcp:Modesta Lira Subjective: * Chief Complaints: * P ots disease, vomiting * Electronic signature of Modesta Chand CNP on 11/25/2025 at 11:30 AM EST Sign off status: Pending * Provider: Jesus Chand CNP Date: 0 01/30/2025 Generated for Printing/Faxing/eTransmitting on:?11/25/2025 11:30 AM EST
--- OUTSIDE RECORDS SUMMARY | 2025-05-22 04:00 | XMS_ITS ---
Author Organization [email or web address] es Address [address] [place] [address] Care Team Providers Care Beeswax Bleacher Name Role Phone Modesta Lira Primary Care Provider Kelsey Espino [phone] REASON FOR VISIT nexplanon removal Social History Sex Assigned At : Social History Observation Description Sex Assigned At Female Encounters Encounter Location Date Provider Diagnosis [address] [place] [address] 05/22/2025 Kelsey Espino Plan Of Treatment No Information Progress Notes * PILI SEGURA ADOB: [birth year] (20 yo F)Acc No.[id number]:05/22/2025 progress note Patient: PILI PENALOZA A :?Kelsey ZhouOB:2005???Age:20 Y???Sex: FemaleDate:05/22/2025Phone:[phone]:[address] [facility], [place]Qfg:Modesta Lira Subjective: * Chief Complaints: * N explanon removal Billing Information: * Procedure Codes: * Electronic signature of Kelsey Espino NP on 11/25/2025 at 11:29 AM ESTSign off status: Pending * Provider: Raf Espino Date: 0 05/22/2025 Generated for Printing/Faxing/eTransmitting on:?11/25/2025 11:29 AM EST
[2025-11-25 10:45] VITALS: BP 133/87; PULSE 44; TEMP 36.6; O2SAT 99; BMI 40.2
[2025-11-25 10:46] VITALS: BP 133/87
--- NOTE | 2025-11-25 10:54 | ED.GENADUL1 ---
HPI HPI - General Adult General Chief complaint: Nausea/Vomiting/Diarrhea Stated complaint: 19 WKS ; VOMITING, DIZZINESS Time Seen by Provider: 11/25/25 10:49 Source: patient Mode of arrival: walk-in Limitations: no limitations History of Present Illness HPI narrative: 20-year-old female presents to the emergency department for vomiting. She states she has been doing this for 5 days and she is , 19 weeks. No vaginal bleeding. According to her EHR she has a history of cyclic vomiting. No diarrhea or cough or congestion. Related Data Previous Rx's ?Medication ?Instructions ?Recorded ondansetron 4 mg disintegrating 4 mg PO Q8H PRN nausea and 10/11/25 tablet vomiting 48 hours #14 tabs potassium bicarbonate-citric acid 25 meq PO DAILY #7 ea 10/11/25 25 mEq effervescent tablet (Effer-K) promethazine 25 mg tablet 25 mg PO QID PRN nausea and 10/11/25 vomiting #20 tabs ondansetron 4 mg disintegrating 4 mg PO Q6H PRN nausea and 11/25/25 tablet vomiting #20 tabs Allergies Allergy/AdvReac Type Severity Reaction Status Date / Time metoclopramide (From Reglan) AdvReac Intermediate facial Verified 11/25/25 10:45 drooping Opioid HPI Opioid Management Most Recent Opioid Data: Last Pain Scale 7 Today, 10:54 Last ORT Total Score 5 05/03/25, 14:33 Last ORT Risk Category Moderate Risk 05/03/25, 14:33 Ur Phencyclidine Scrn, (NEGATIVE) Negative 05/04/25, 06:20 Review of Systems ROS Narrative A ten point review of systems is negative except as noted above. PFSH [facility] Medical History (Updated 11/25/25 @ 12:16 by Juan C Hernandez MD) Marijuana use ?F12.90 - Cannabis use, unspecified, uncomplicated (ICD-10) Asthma ?J45.909 - Unspecified asthma, uncomplicated (ICD-10) Leukocytosis ?D72.829 - Elevated white blood cell count, unspecified (ICD-10) Bipolar 1 disorder ?F31.9 - Bipolar disorder, unspecified (ICD-10) Migraine ?G43.909 - Migraine, unspecified, not intractable, without status migrainosus (ICD-10) POTS (postural orthostatic tachycardia syndrome) ?G90.A - Postural orthostatic tachycardia syndrome [POTS] (ICD-10) Cyclic vomiting syndrome ?R11.15 - Cyclical vomiting syndrome unrelated to migraine (ICD-10) Cyclic vomiting syndrome ?R11.15 - Cyclical vomiting syndrome unrelated to migraine (ICD-10) Fall ?W19.XXXA - Unspecified fall, initial encounter (ICD-10) Fracture of tibial plateau ?S82.143A - Displaced bicondylar fracture of unspecified tibia, initial encounter for closed fracture (ICD-10) Surgical History History of appendectomy ?Z90.49 - Acquired absence of other specified parts of digestive tract (ICD-10) Family History Father Family history of stroke Family history of diabetes mellitus Family history of cancer Family history of hypertension Family history of CHF (congestive heart failure) Grandfather Family history of stroke Grandmother Family history of myocardial infarction Mother Family history of diabetes mellitus Family history of cancer Social History (Updated 05/03/25 @ 14:23 by Emili Benitez) Within the past year, how often did you have a drink containing alcohol: never Score interpretation: A score less than 3 is consistent with normal alcohol consumption. Smoking status: Current every day smoker Non-prescribed substance use: cannabis (any form) Previous occupational history: [employer] Highest level of school completed/degree received: high school graduate Little interest or pleasure in doing things: not at all Feeling down, depressed, or hopeless: not at all Feel stressed/tense/nervous/anxious/difficulty sleeping: not at all Do you think of yourself as: straight/heterosexual Gender Identity: female Exam Narrative Exam Narrative: Nurses note and vital signs reviewed General:The patient appears in no acute distress. Skin:Warm, dry, no pallor noted.There is no rash noted. Head:Normocephalic, atraumatic Eye: Normal conjunctiva, no drainage Ears, Nose, Mouth, and Throat: oral mucosa is somewhat dry. Nares patent. Cardiovascular:Regular Rate and Rhythm Respiratory:Patient is in no distress, no accessory muscle use, lungs are clear to auscultation, no wheezing, rales or rhonchi Back:non-tender, no CVA tenderness bilaterally to percussion. GI: Soft and nontender Musculoskeletal: The patient has no evidence of calf tenderness, no pitting edema, symmetrical pulses noted bilaterally Neurological:A&O, normal speech Psychiatric:Cooperative Constitutional Vital Signs, click to edit/add: Last Vital Signs Temp 97.8 F 11/25/25 10:45 Pulse 44 L 11/25/25 10:45 Resp 20 11/25/25 10:45 BP 119/66 11/25/25 11:31 Pulse Ox 100 11/25/25 11:19 Course Vital Signs Vital signs: Vital Signs Temperature 97.8 F 11/25/25 10:45 Pulse Rate 44 L 11/25/25 10:45 Respiratory Rate 20 11/25/25 10:45 Blood Pressure 133/87 11/25/25 10:45 Pulse Oximetry 99 11/25/25 10:45 Temperature 97.8 F 11/25/25 10:45 Pulse Rate 44 L 11/25/25 10:45 Respiratory Rate 20 11/25/25 10:45 Blood Pressure 119/66 11/25/25 11:31 Pulse Oximetry 100 11/25/25 11:19 Medical Decision Making MDM Narrative Medical decision making narrative: The patient had presented with nausea and vomiting. She was found to be hypokalemic with potassium of 2.2. She was offered oral potassium here but states she has at home and she will take it there. She was requesting IM Benadryl and IM Phenergan which were not given. She was given IV fluids and IV Zofran and is discharged home. Differential Diagnosis Differential Diagnosis: Cyclic vomiting, substance abuse, dehydration Lab Data Lab results reviewed: Yes I reviewed the patient's lab results Labs: Lab Results 11/25/25 11/25/25 Range/Units 11:15 11:17 WBC 21.1 H (4.0-11.0) 10^3/uL RBC 5.24 (4.20-5.40) 10^6/uL Hgb 16.3 H (12.0-16.0) g/dL Hct 45.5 (36.0-48.0) % MCV 86.8 (81.0-99.0) fL MCH 31.1 (26.7-34.0) pg MCHC 35.8 H (29.9-35.2) g/dL RDW 12.0 (11.0-15.0) % Plt Count 272 (150-450) 10^3/uL MPV 10.3 (9.5-13.5) fL Neut % (Auto) 85.9 H (43.0-75.0) % Lymph % (Auto) 7.1 L (20.5-60.0) % Wirt % (Auto) 6.0 (1.7-12.0) % Eos % (Auto) 0.3 L (0.9-7.0) % Baso % (Auto) 0.2 (0.2-2.0) % Neut # (Auto) 18.1 H (1.4-6.5) 10^3/uL Lymph # (Auto) 1.5 (1.2-3.8) 10^3/uL Wirt # (Auto) 1.3 H (0.3-0.8) 10^3/uL Eos # (Auto) 0.1 (0.0-0.7) 10^3/uL Baso # (Auto) 0.1 (0.0-0.1) 10^3/uL Abs Immat Gran (auto) 0.10 H (0.00-0.03) 10^3/uL Imm/Tot Granulo (auto) 0.5 (0.0-0.5) % Sodium 135 L (136-145) mmol/L Potassium 2.2 L* (3.5-5.1) mmol/L Chloride 88 L (98-107) mmol/L Carbon Dioxide 33.7 H (21.0-32.0) mmol/L Anion Gap 15.5 BUN 22.0 H (7.0-18.0) mg/dL Creatinine 0.89 (0.55-1.02) mg/dL Est GFR ( Amer) >60 (>=60 mL/min/1.73m^2) Est GFR (Non-Af Amer) >60 (>=60 mL/min/1.73m^2) BUN/Creatinine Ratio 24.7 Glucose 128 H (74-106) mg/dL Calcium 10.2 H (8.5-10.1) mg/dL Influenza Type A Ag Negative Influenza Type B Ag Negative SARS-CoV-2 Ag (CV2AG) Negative (NEGATIVE) Discharge Plan Discharge Chief Complaint: Nausea/Vomiting/Diarrhea Clinical Impression: Vomiting, Hypokalemia Patient Disposition: Home, Self-Care Time of Disposition Decision: 12:15 Condition: Good Mode of Transportation: Private Vehicle Prescriptions / Home Meds: New ondansetron 4 mg tablet,disintegrating 4 mg PO Q6H PRN (Reason: nausea and vomiting) Qty: 20 0RF No Action ondansetron 4 mg tablet,disintegrating 4 mg PO Q8H PRN (Reason: nausea and vomiting) 2 Days Qty: 14 0RF promethazine 25 mg tablet 25 mg PO QID PRN (Reason: nausea and vomiting) Qty: 20 0RF Effer-K 25 mEq tablet, effervescent 25 meq PO DAILY Qty: 7 0RF Print Language: Czech Instructions: Acute Nausea and Vomiting (ED) Referrals: Physician,Non-Staff, MD [Primary Care Provider] - 1 week
[2025-11-25] MEDS: 0.9 % SODIUM CHLORIDE 1,000 ML 1000 ML IV (11:10)
[2025-11-25 11:19] VITALS: O2SAT 100
[2025-11-25 11:20] VITALS: BP 126/63
[2025-11-25 11:26] LABS: Hematocrit 45.5 % (36.0-48.0); Hemoglobin 16.3 g/dL (12.0-16.0); Immature Granulocytes Abs Auto 0.10 10^3/uL (0.00-0.03); Immature Granulocytes Pct Auto 0.5 % (0.0-0.5); Lymphocytes Absolute Auto 1.5 10^3/uL (1.2-3.8); Mean Corpuscular HGB Conc 35.8 g/dL (29.9-35.2); Mean Corpuscular Hemoglobin 31.1 pg (26.7-34.0); Mean Corpuscular Volume 86.8 fL (81.0-99.0); Platelet Count 272 10^3/uL (150-450); Red Blood Count 5.24 10^6/uL (4.20-5.40); White Blood Count 21.1 10^3/uL (4.0-11.0)
--- OUTSIDE RECORDS SUMMARY | 2025-11-25 11:30 | XMS_ITS | Clinical Summary ---
Author Organization [facility] Address [address] [place] [address] Care Team Providers Care Sausage Cooker Name Role Phone Unavailable Primary Care Provider Unavailabl e Encounters DateTypeDepartmentCare SaubJiczagckado63/11/2025Results Follow-Up [facility] [address] [place] [address] Federico Mccain PA URINE CULTURE - FR11/02/2025linisync Result Encounter [facility] Unsolicited Federico Mccain PA from Last 3 Months Social History Tobacco UseTypesPacks/DayYears UsedDateSmoking Tobacco: Never Assessed CommentsUnknownSex and Gender InformationValueDate RecordedSex Assigned at Not on fileLegal IadInlqnl18/15/2023 7:10 PM EDTGender IdentityNot on fileSexual OrientationNot on file Last Filed Vital Signs Vital SignReadingTime TakenCommentsBlood Bkgxnepd964/7403 12:00 PM EDT Pulse--Temperature--Respiratory Rate--Oxygen Saturation--Inhaled Oxygen Concentration--Jpyrzz62 kg (161 lb)02/17/2022 12:00 PM LCKNqucek979.5 cm (5' 2 ) 02/17/2022 12:00 PM EDTBody Mass Index29.45002/17/2022 12:00 PM EDT Plan of Treatment Not on file Procedures Procedure NamePriorityDate/TimeAssociated DiagnosisCommentsURINE CULTURE - FR Vguyzhi9411/02/2025 7:08 PM EST from Last 3 Months Results * URINE CULTURE - FR (11/02/2025 7:08 PM EST)ComponentValueRef RangeTest MethodAnalysis TimePerformed AtPathologist SignatureURINE CULTURE - [facility] ??Urine Culture - [facility] SEEFRMC [facility] RESULT^[facility] RESULT TBHURINE CULTURE - FRMCSEEN SEE SCANNED REPORT, NORMAL^SEE SCANNED REPORT, NORMALTBHSpecimen (Source)Anatomical Location / LateralityCollection Method / VolumeCollection TimeReceived Time11/02/2025 7:08 PM EST11/02/2025 7:14 PM EST Narrative [facility] - 11/06/2025 4:50 PM EST Authorizing ProviderResult TypeResult StatusMatthetonny Mccain [facility] BLOOD ORDERABLESFinal ResultPerforming OrganizationAddressCity/State/ZIP CodePhone Number [facility] from Last 3 Months Insurance
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
[2025-11-25 11:31] VITALS: BP 119/66
--- OUTSIDE RECORDS SUMMARY | 2025-11-25 11:36 | XMS_ITS | CCD ---
Author Organization [facility] Care Team Providers Care Pbx Technician Name Role Phone Calvin, Mere T Unavailable [...] Luisa Unavailable Unavailable Unavailable [facility] Provider DO Art Bianchi Emergency Provider DO Ender Donovan Emergency Provider DO Gilda Arguellorick M Emergency Provider Matthew DO Gilson Emergency Provider MILY Chand Attending Pr ovider MD Brennen Britt Attending Provider [facility] Prov ider [facility] Primary Care Provider FRANKY Rivera Emergency Provider MD Colten Fry Jr Emergency Provider DO Matthew Gilson Emergency Provider Aurelio, DO Gregorio Admit Provider [phone] Aurelio DO Gregorio Attending Provider [facility] Prov ider FRANKY Rivera Emergency Provider MD Colten Fry Jr Emergency Provider Matthew DO Gilson Emergency Provider Aurelio DO Gregorio Admit Provider Aurelio, DO Gregorio Attending Provider MILY Chand Attending Pr ovider TuDO Gilda pittsrick M Emergency Provider [facility] Prov ider FRANKY Rivera Emergency Provider MD Colten Fry Jr Emergency Provider DO Matthew Gilson Emergency Provider Aurelio, DO Gregorio Admit Provider Aurelio DO Gregorio Attending Provider [phone] MILY Chand Attending Pr ovider DO Ravi Arguello Emergency Provider DO Art Bianchi Emergency Provider [phone] DO Robert Bolanos Emergency Provider [facility] Primary Care Provider MD Corey Newberry Emergency Provider [phone] [facility] Primary Care Prov ider DO Federico Randolph Emergency Provider KATE Damian Emergency Provider MD Eliana Bautista Admit Provider [phone] MD Eliana Bautista Attending Provider SANDRO, DR VU Primary Care Unavailable DALIA ., AUSTIN Admitting Unavailable DALIA ., AUSTIN Attending Unavailable DALIA ., AUSTIN Consulting Unavailable DIAB ., IRWIN Admitting Unavailable ETHAN ., IRWIN Attending Unavailable SANDRO, DR VU Primary Care Unavailable KIA ARVIZU Consulting Unavailable ETHAN ., IRWIN Consulting Unavailable Colten Miller Unavailable [facility] Primary Care Provider MILY Chand Attending Pr ovider MD Colten Miller Attending Provider [facility] Primary Care Provider DO Ravi Arguello Emergency Provider [phone] MODESTA ARCHIBALD Primary Care Physician [facility] Primary Care Provider MD Femi Benitez Emergency Provider Cresencio Abel Attending Unavailable MODESTA ARCHIBALD Primary Care Unavailable MODESTA ARCHIBALD Primary Care Unavailable August Bermudez Attending Unavailable MODESTA ARCHIBALD Primary Care Unavailable DO Isaak Francis Attending Unavailable [facility] Primary Care Provider MD Ania Watson Emergency Provider [phone] MODESTA ARCHIBALD Primary Care Unavailable August Bermudez Attending Unavailable Cresencio Abel Attending Unavailable MODESTA ARCHIBALD Primary Care Unavailable MODESTA CHAND Primary Care Physician August Bermudez Attending Unavailable August Bermudez Attending Unavailable [facility] Primary Care Provider [phone] Rd Brown PA-C Emergency Provider Makayla Monk DO Attending Provider [phone] Jasmeet Dahl MD Attending Provider [phone] Drew Steinberg MD Attending Provider Federico Randolph [...] Attending Unavailable Kelsey Espino Admitting Unavailable [facility] Primary Care Unavail[address] Marin Attending Unavailable Rd Brown Admitting Unavailable Jasmeet Dahl Admitting Unavailable Jasmeet Dahl Attending Unavailable Allergies Allergy ClassificationReported Allergen(s)Allergy TypeDate of OnsetReaction(s) Facility (16 sources)Haloperidol; Translations: [Haloperidol]Drug [id number] Unknown [facility] ([facility])Metoclopramide; Translations: [Metoclopramide]Drug [id number] Unknown (qualifier value)[facility] (6 sources)Haloperidol; Translations: [Haldol]Drug AllergyThe [facility] (6 sources)Iothalamate; Translations: [Reglan]Drug AllergyThe [facility] Medications Current Medications MedicationDrug Class(es)DatesSig (Normalized)Sig (Original)acetaminophen 325 mg / HYDROcodone bitartrate 5 mg oral tablet (20 sources)Opioid AgonistStart: 03-13-2024 End: 35-69-6259Jyfku 325 mg-5 mg oral tablet 1 tab(s), Oral, q6hr for pain for 3 day(s), 7 tab(s), Refill(s) 0, [facility]/pharmacy #[id number], 160, cm, 03/13/24 17:38:00 EDT, Height/Length Dosing, 95.5, kg, 03/13/24 17:38:00 EDT, Weight Dosing Start Date: 03/13/24 Stop Date: 03/16/24 Status: OrderedStart: 59-66-2682sbvl 15 mL by mouth every eight hours as needed for painHYDROcodone-acetaminophen (HYCET) 7.5- 325 mg/15 mL oral liquid Indications: Abscess, peritonsillar Take 15 mL by mouth every 8 hours as needed for pain. 120 mL 0 10/09/2021 ActiveStart: 12-15-2019 End: 69-69-3717aqlx 1 tablet by mouth every six hours as needed for pain Hydrocodone-Acetaminophen ([place]) 5-325 mg tablet Discontinued 1 TAB PO Q6H as needed for pain 6 2 December 15, 2019 December 31, 2019 1:37pmStart: 12-15-2019 End: 04-72-3110Yhono: 04-20-2019 End: 56-26-3320pysz 1 tablet by mouth every six hours as needed for pain Hydrocodone-Acetaminophen 5-325 mg Tablet Discontinued 1 TAB PO Q6H as needed for Pain 20 April 20, 2019 May 05, 2019 8:42pmStart: 04-20-2019 End: 55-70-2742Kbiew: 02-19-2019 End: 18-40-1674bmyq 1 tablet by mouth twice daily as needed for painHydrocodone- Acetaminophen ([place]) 5-325 mg tablet Discontinued 1 TAB PO Twice daily as needed for pain 6 February 19, 2019 March 08, 2019 3:53pmStart: 02-19-2019 End: 98-46-9980Danntoq on above:Take 15 mL by mouth every 8 hours as needed for pain.cephalexin 500 mg oral capsule (20 sources)Cephalosporin AntibacterialStart: 94-80-6735gubk 1 capsule by mouth every eight hoursStart: 23-11-1490tnnx 1 capsule by mouth every eight hours Cephalexin 500 MG 1 capsule Orally every 8 hrs for 2 days Apr, Active Start: 02-06-2022 End: 27-85-4232uxwk 1 tablet by mouth four times dailyCephalexin 250 mg tablet Discontinued 250 MG PO Four times daily 24 06February 06, 2022 1:00am 2021 8:15pmStart: 08-20-2021 End: 83-74-7562szrm 1 capsule by mouth twice dailyCephalexin 500 mg capsule Discontinued 500 MG PO Twice daily August 20, 2021 12:00am September 05, 2021 11:25pmStart: 06-01-2021 End: 82-73-2330indr 2 capsules by mouth every twelve hoursCephalexin 500 mg Capsule Discontinued 1000 MG PO Q12H 40 June 01, 2021 12:00am July 19, 2021 2:07pmStart: 06-01-2021 End: 06-14-3510quwi 1000 mg by mouth every twelve hoursCephalexin Discontinued 1000 MG PO Q12H 40 June 01, 2021 12:00am July 19, 2021 2:07pmStart: 06-01-2021 End: 51-44-4868Tdtot: 04-14-2021 End: 10-30-0635gcce 2 capsules by mouth twice dailyCephalexin 500 mg capsule Discontinued 1000 MG PO Twice daily April 14, 2021 12:00am May 10, 2021 11:08amStart: 04-14-2021 End: 91-56-4361ntcv 1000 mg by mouth twice dailyCephalexin Discontinued 1000 MG PO Twice daily April 14, 2021 12:00am May 10, 2021 11:08amStart: 04-14-2021 End: 49-17-9476Xbxyy: 10-07-2020 End: 40-63-6879lyta 1 capsule by mouth twice dailyCephalexin (Keflex) 500 mg capsule Discontinued 500 MG PO Twice daily 16 09October 07, 2020 1:00am January 12, 2021 1:34pmStart: 03-23-2018 End: 24-80-7860mygm 1 capsule by mouth four times dailyCephalexin (Keflex) 500 mg Capsule Discontinued 500 MG PO Four times daily 40 March 23, 2018 12:00am April 05, 2018 10:48pmStart: 03-23-2018 End: 38-31-9819decjzzivtfvwzwa hydrochloride 5 mg oral tablet (1 source)Muscle RelaxantStart: 01-16-2025 End: 43-54-3846eeju 1 tablet by mouth three times dailycyclobenzaprine 5 mg Tab 5 mg = 1 tab(s), Oral, TID, X 7 day(s), # 21 tab(s), Refills(s) 0, Pharmacy: [facility]/pharmacy #[id number], 157, cm, 01/16/25 17:56:00 EST, Height/Length Dosing, 95, kg, 01/16/25 17:56:00 EST, Weight Dosing Start Date: 01/16/25 Stop Date: 01/23/25 Status: OrderedEtonogestrel (3 sources)ProgestinNexplanon Activemethocarbamol 500 mg oral tablet (2 sources)Muscle RelaxantStart: 03-13-2024 End: 26-05-9264iwtl 1 tablet by mouth three times dailyRobaxin 500 mg Tab 500 mg = 1 tab(s), Oral, TID, X 3 day(s), # 9 tab(s), Refills(s) 0, Pharmacy: [facility] /pharmacy #[id number], 160, cm, 03/13/24 17:38:00 EDT, Height/Length Dosing, 95.5, kg, 03/13/24 17:38:00 EDT, Weight Dosing Start Date: 03/13/24 Stop Date: 03/16/24 Status: Orderednaproxen 500 mg oral tablet (20 sources)Nonsteroidal Anti-inflammatory DrugStart: 05-45-8340djdb 1 tablet by mouth twice daily as needed for painnaproxen 500 mg Tab 500 mg = 1 tab(s), Oral, BID, PRN Pain, with food, # 20 tab(s), Refills(s) 0, Pharmacy: [facility]/pharmacy #[id number], 157, cm, 01/16/25 17:56:00 EST, Height/Length Dosing, 95, kg, 01/16/25 17:56:00 EST, Weight Dosing Start Date: 01/16/25 Status: Ordered Start: 02-19-2019 End: 44-53-0162ckfg 1 tablet by mouth twice daily as needed for painNaproxen 500 mg tablet Discontinued 500 MG PO Twice daily as needed for pain February 19, 2019 12:00am March 08, 2019 3:53pm administer with food or milkondansetron 4 mg disintegrating oral tablet (20 sources)Serotonin-3 Receptor AntagonistStart: 03-19-5069Ajvqx: 11-09-2022 End: 34-82-3128cuvw 1 tablet by mouth every eight hours as needed for nausea and vomitingOndansetron 8 mg tablet,disintegrating Discontinued 8 MG PO Q8H as needed for nausea and vomiting 10 November 09, 2022 1:00am October 28, 2024 10:59pmStart: 11-07-2022 End: 90-44-4753Ypsoulwvlib Hcl 4 mg tablet Discontinued 4 MG PO every 6 to 8 hours as needed for nausea and vomiting November 07, 2022 1:00am November 09, 2022 4:12pmStart: 08-20-2022 End: 18-29-3116Amovudexdqf 4 mg tablet,disintegrating Discontinued 4 MG PO every 6 to 8 hours as needed for Zmsckn72 August 20, 2022 12:00am January 06, 2023 5:46pmStart: 05-14-2022 End: 84-30-3587rayi 1 tablet by mouth every eight hours as needed for nausea and vomitingOndansetron 4 mg tablet,disintegrating Discontinued 4 MG PO Q8H as needed for nausea and vomiting 72 May 14, 2022 12:00am August 18, 2022 12:32pmStart: 02-07-2022 End: 02-86-3153Ituinrpjvjw 4 mg Tablet,Disintegrating Discontinued 4 MG PO every 6 to 8 hours as needed for Omrtot37 February 07, 2022 1:00am March 08, 2022 8:15pmStart: 07-15-2021 End: 48-71-1348jtzo 1 tablet by mouth every eight hours as needed for nausea and vomitingOndansetron Hcl (Zofran) 4 mg tablet Discontinued 4 MG PO Q8H as needed for nausea and vomiting 10 July 15, 2021 12:00am July 19, 2021 2:07pm Start: 04-14-2021 End: 66-92-1123hqhe 1 tablet by mouth every eight hours as needed for nausea and vomitingOndansetron 8 mg tablet,disintegrating Discontinued 8 MG PO Q8H as needed for nausea and vomiting 10 April 14, 2021 12:00am July 19, 2021 2:07pmStart: 10-02-2020 End: 22-36-2529qtas 1 tablet by mouth every eight hours as needed for nausea and vomitingOndansetron 4 mg tablet,disintegrating Discontinued 4 MG PO Q8H as needed for nausea and vomiting 3Nov2019 1:00am January 12, 2021 1:35pmStart: 09-23-2020 End: 24-18-1459nfpd 1 tablet by mouth every eight hours as needed for nausea and vomitingOndansetron Hcl 4 mg tablet Discontinued 4 MG PO Q8H as needed for nausea and vomiting September 23, 2020 12:00am January 12, 2021 1:35pm Start: 06-25-2020 End: 73-56-1634eqdg 1 tablet by mouth three times daily as needed for nausea and vomitingOndansetron 4 mg tablet,disintegrating Discontinued 4 MG PO Three times daily as needed for nausea and vomiting 10 June 25, 2020 12:00am July 19, 2020 2:22pmStart: 01-03-2020 End: 62-23-4282hjof 1 tablet by mouth every eight hours as needed for nausea and vomitingOndansetron Hcl (Zofran) 4 mg tablet Discontinued 4 MG PO Q8H as needed for nausea and vomiting 6 2February 2019 1:00am February 19, 2020 6:54pm Start: 10-25-2019 End: 95-06-5909Hscqvmrezla 4 mg tablet,disintegrating Discontinued 4 MG PO every 6 to 8 hours as needed for nauseaand vomiting April 23, 2020 12:00am May 19, 2020 4:07amStart: 09-30-2019 End: 55-43-3998vqpe 1 tablet by mouth four times daily as needed for nausea and vomitingOndansetron Hcl (Zofran) 4 mg tablet Discontinued 4 MG PO Four times daily as needed for nausea andvomiting September 30, 2019 12:00am October 24, 2019 10:46pmStart: 09-30-2019 End: 82-09-0450Vhjxf: 06-24-2019 End: 17-06-3821jupi 1 tablet by mouth every six hours as needed for nausea and vomitingOndansetron 4 mg tablet,disintegrating Discontinued 4 MG PO Q6H as needed for nausea and vomiting June 24, 2019 12:00am September 03, 2019 8:25pmStart: 06-24-2019 End: 20-02-9878Rgerr: 05-02-2019 End: 46-99-7624Artifhyysyp 8 mg tablet,disintegrating Discontinued 8 MG PO EVERY 8-12 HOURS as needed for nausea and vomiting June 02, 2019 12:00am September 03, 2019 8:25pmStart: 05-02-2019 End: 19-76-1719nene 1 tablet by mouth three times daily as needed for nausea and vomitingOndansetron 8 mg tablet,disintegrating Discontinued 8 MG PO Three times daily as needed for nausea and vomiting May 02, 2019 12:00am September 03, 2019 8:25pmStart: 02-19-2019 End: 97-19-7118xksx 1 tablet by mouth every eight hours as needed for nausea and vomitingOndansetron 4 mg tablet,disintegrating Discontinued 4 MG PO Q8H as needed for nausea and vomiting February 19, 2019 12:00am March 08, 2019 3:53pmStart: 12-28-2018 End: 65-56-4707qpqu 1 tablet by mouth three times daily as needed for nausea and vomitingOndansetron Hcl (Zofran) 8 mg Tablet Discontinued 8 MG PO Three times daily as needed for Nausea And Vomiting December 28, 2018 1:00am May 05, 2019 8:42pmStart: 09-04-2018 End: 50-11-7903fnpw 1 tablet by mouth every eight hours as needed for nausea and vomitingOndansetron (Zofran Odt) 4 mg tablet,disintegrating Discontinued 4 MG PO Q8H as needed for nausea and vomiting 9 September 04, 2018 12:00am October 16, 2018 4:08pmStart: 08-29-2018 End: 74-75-6317xxcg 1 tablet by mouth every eight hoursOndansetron (Zofran Odt) 4 mg tablet,disintegrating Discontinued 4 MG PO Q8H 9 August 29, 2018 1 2:00am August 31, 2018 12:00am September 01, 2018 12:02amStart: 03-27-2018 End: 40-43-6695vkdu 1 tablet by mouth every four hours for nauseaOndansetron (Zofran Odt) 4 mg Tablet,Disintegrating Discontinued 4 MG PO Q4H as needed for Nausea March 27, 2018 12:00am April 06, 2018 12:29am administer first dose 30 minutes before start of emetogenic chemotherapyStart: 03-27-2018 End: 66-89-6805Cgnhu: 01-03-2018 End: 00-73-9764Klfqhxqtesz (Zofran Odt) 4 mg tablet,disintegrating Discontinued 8 MG PO Q8H as needed for nausea and vomiting 9 3 January 03, 2018 1:00am January 17, 2018 3:10amStart: 01-03-2018 End: 23-29-3227Zabiw: 10-03-2017 End: 98-62-2801acxj 1 tablet by mouth every eight hours as needed for nausea Ondansetron (Zofran Odt) 4 mg tablet,disintegrating Discontinued 4 MG PO Q8H as needed for nausea October 03, 2017 1:00am October 06, 2017 1:12amStart: 10-03-2017 End: 82-05-5358cakx 1 tablet by mouth every eight hours [...] meq extended release oral tablet (20 sources)Start: 10-14-6924rizf 1 tablet by mouth twice dailyStart: 08-22-2022 End: 78-87-8582spgy 1 capsule by mouth once dailyPotassium Chloride 10 mEq capsule, extended release Discontinued 10 MEQ PO Daily 09 06August 22, 2022 12:00am November 09, 2022 4:12pmStart: 04-26-2018 End: 32-73-2085frrq 20 mEq by mouth once dailyPotassium Chloride 20 mEq packet Discontinued 20 MEQ PO Daily April 26, 2018 12:00am May 08, 2018 6:56pm promethazine hydrochloride 12.5 mg oral tablet (20 sources)PhenothiazineStart: 31-45-0781cpck 1 tablet by mouth every six hours as needed for nauseapromethazine 12.5 mg oral tablet 12.5 mg = 1 tab(s), Oral, q6hr, PRN for nausea/vomiting, # 10 tab(s), Refills(s) 0, Pharmacy: [facility]/pharmacy #[id number], 157, cm, 01/16/25 17:56:00 EST, Height/Length Dosing, 95, kg, 01/16/25 17:56:00 EST, Weight Dosing Start Date: 01/16/25 Status: OrderedStart: 07-30-2024 take 1 tablet by mouth every eight hours as needed for nauseapromethazine 12.5 mg oral tablet 12.5 mg = 1 tab(s), Oral, q8hr, PRN as needed for nausea/vomiting,second line, # 10 tab(s), Refills(s) 0, Pharmacy: [facility]/pharmacy #[id number], 157, cm, 07/30/24 19:37:00 EDT, Height/Length Dosing, 96.1, kg, 07/30/24 19:37:00 EDT, Weight Dosing Start Date: 07/30/24 Status: OrderedStart: 07-30-2024 take 12.5 mg rectal route every eight hours as needed for nauseaPhenergan 12.5 mg Supp 12.5 mg = 1 supp, Rectal, q8hr, PRN as needed for nausea/vomiting, 3rd line,# 6 EA, Refills(s) 0, [id number], cm, 07/30/24 19:37:00 EDT, Height/Length Dosing, 96.1, kg, 07/30/24 19:37:00 EDT, Weight Dosing Start Date: 07/30/24 Status: OrderedStart: 05-25-2023 End: 53-78-5115Kdukepjxxvwa 25 mg tablet Discontinued 12.5 MG PO Three times daily as needed for nausea and vomiting May 25, 2023 8:37am October 28, 2024 10:59pmStart: 36-00-5464ujcw 12.5 mg by mouth three times dailyPromethazine Active 12.5 MG PO Three times daily May 25, 2023 8:37amStart: 01-02-2023 End: 73-44-3816Uvseccpudhlc 25 mg suppository Discontinued 25 MG NJ Q6H as needed for Nausea January 02:00am October 28, 2024 10:59pmStart: 12-31-2022 End: 68-85-0005nfaw 1 tablet by mouth three times daily as needed for nausea and vomitingPromethazine 25 mg tablet Discontinued 25 MG PO Three times daily as needed for nausea and knrydkkk24 January 07, 2023 1:00am May 25, 2023 8:36amStart: 05-15-2022 End: 10-15-9634qoox 1 tablet by mouth three times daily as needed for nausea Promethazine 25 mg tablet Discontinued 25 MG PO Three times daily as needed for Nausea May 15, 2022 12:00am August 18, 2022 12:33pmStart: 02-09-2022 End: 60-10-0921Zopetlzbdqws 25 mg suppository Discontinued 25 MG NJ Q6H as needed for nausea and vomiting 2021 12:00am March 08, 2022 8:15pmStart: 09-30-2021 End: 98-34-7699nbyl 3 tablets by mouth three times daily as needed for nausea and vomitingPromethazine 12.5 mg tablet Discontinued 12.5 MG PO Three times daily as needed for nausea and vomiting 15 5 February 07, 2022 1:00am March 08, 2022 8:15pm 3 doses during day; last dose no later than 4 hr before bedtime Start: 09-30-2021 End: 72-65-8897smgn 3 tablets by mouth twice daily as needed for nausea and vomitingPromethazine 12.5 mg tablet Discontinued 12.5 MG PO Twice daily as needed for nausea and vomiting 2020 12:00am February 06, 2022 11:25am 3 doses during day; last dose no later than 4 hr before bedtimeStart: 09-30-2021 End: 65-38-7876Yfqufwsijjce 12.5 mg suppository Discontinued 12.5 MG NJ Once September 30, 2021 12:00am 2020 9:34pmStart: 09-30-2021 End: 29-84-8658Mwfqtoksheig Discontinued 12.5 MG NJ Once September 30, 2021 12:00am October 08, 2021 9:34pmStart: 09-30-2021 End: 54-55-8910Hfekq: 04-23-2020 End: 00-52-5432aogo 1 tablet by mouth every six hours as needed for nausea and vomitingPromethazine 12.5 mg tablet Discontinued 12.5 MG PO Q6H as needed for nausea and vomiting April 23, 2020 12:00am June 25, 2020 5:37pmStart: 03-21-2020 End: 11-30-2410Gwzfksyyjqzg 25 mg tablet Discontinued 12.5 MG PO Every 8 hours as needed for nausea and vomiting March 21, 2020 12:00am June 25, 2020 5:37pmStart: 03-21-2020 End: 96-63-9975bgkw 12.5 mg by mouth every eight hoursPromethazine Discontinued 12.5 MG PO Every 8 hours March 21, 2020 12:00am June 25, 2020 5:37pm Start: 03-21-2020 End: 29-90-4820Symbj: 05-10-2019 End: 21-24-0437Xbwytvmrwxrz (Phenergan) 25 mg suppository Discontinued 25 MG NJ Q4H as needed for nausea and vomiting May 10, 2019 12:00am September 03, 2019 8:25pmStart: 03-08-2019 End: 19-02-4411itrh 1 tablet by mouth every four to six hours as needed for nausea and vomitingPromethazine 25 mg tablet Discontinued 25 MG PO EVERY 4-6 HOURS as needed for nausea and vomiting March 08, 2019 12:00am March 23, 2019 5:49pmStart: 02-13-2018 End: 64-16-5926Muopjssjxgig (Phenergan) 25 mg suppository Discontinued 25 MG NJ Q8H as needed for nausea and vomiting February 13, 2018 12:00am March 13, 2018 10:44pmStart: 01-03-2018 End: 67-62-1465Pdreucfgxkxk 25 mg suppository Discontinued 25 MG NJ Q6H as needed for Nausea April 23, 2018 6:04pmOctober 16, 2018 4:08pmStart: 10-03-2017 End: 09-18-7583ejzx 1 tablet by mouth every twelve hoursPromethazine 25 tablet Discontinued 25 MG PO Q12H October 03, 2017 1:00am April 06, 2018 12:30am Start: 08-24-2016 End: 74-28-5825xndn 1 tablet by mouth every six hours as needed for nausea and vomitingPromethazine 25 mg tablet Discontinued 25 MG PO Q6H as needed for nausea and vomiting August 19, 2022 12:00am August 19, 2022 8:05pmZofran ODT 4 mg Tab-Dis (2 sources)Start: 72-56-5130czpd 1 tablet by mouth every eight hours as needed for nauseaZofran ODT 4 mg Tab-Dis 4 mg = 1 tab(s), Oral, q8hr, PRN Nausea/Vomiting, # 16 tab(s), Refills(s) 0, Pharmacy: [facility]/pharmacy #[id number], 157, cm, 07/30/24 19:37:00 EDT, Height/Length Dosing, 96.1, kg, 07/30/24 19:37:00 EDT, Weight Dosing Start Date: 07/30/24 Status: Ordered Completed/Discontinued Medications MedicationDrug Class(es)DatesSig (Normalized)Sig (Original)acetaminophen 325 mg / oxyCODONE hydrochloride 5 mg oral tablet (15 sources)Opioid AgonistStart: 05-25-2023 End: 48-27-6223cpup 1 tablet by mouth twice dailyOxycodone-Acetaminophen 5-325 mg tablet Discontinued 5 - 325 TAB PO 2 times daily May 25, 2023 12:00am October 28, 2024 10:59pmStart: 05-12-3167ehwd 1 tablet by mouth every four to six hours as needed for painPercocet 5-325 MG 1 tablet as needed for pain Orally up to every 4-6 hrs for 5 days SANTO: [id number] Apr, Activetake 1 tablet by mouth every six hoursoxyCODONE-Acetaminophen 5-325 MG 1 tablet as needed Orally every 6 hrs [id number] 200 actuat albuterol 0.09 mg/actuat metered dose inhaler (20 sources)beta2-Adrenergic AgonistStart: 08-20-2021 End: 60-17-5401Wjsoooohn Sulfate 90 mcg/actuation HFA aerosol inhaler Discontinued 2 INH INHALATION Q6H as needed for shortness of breath or wheezing August 20, 2021 12:00am September 05, 2021 11:25pm administer with spacer Start: 08-20-2021 End: 27-85-8946Fdyfk: 05-05-2019 End: 57-07-4785emdw 1 puff(s) by inhalation every four to six hours as needed for wheezingAlbuterol Sulfate (Proventil Hfa) 90 mcg/actuation Hfa Aerosol Inhaler Discontinued 2 PUFF INHALATION EVERY 4-6 HOURS as needed for Shortness Of Breath Or Wheezing May 05, 2019 12:00am September 03, 2019 8:24pm with spacerStart: 05-05-2019 End: 49-38-7859Ozbwn: 12-21-2017 End: 24-76-0599pntc 1 puff(s) by inhalation every four to six hours as needed for wheezingAlbuterol Sulfate 90 mcg/actuation Hfa Aerosol Inhaler Discontinued 2 PUFF INHALATION EVERY 4-6 HOURS as needed for Shortness Of Breath Or Wheezing December 21, 2017 1:00am July 19, 2021 2:07pmStart: 12-21-2017 End: 49-09-8264kjzw 1 puff(s) by inhalation every four to six hoursAlbuterol Sulfate Discontinued 2 PUFF INHALATION EVERY 4-6 HOURS December 21, 2017 12:00am July 19, 2021 1:07pmStart: 12-21-2017 End: 13-31-6304nzhm 1 puff(s) by inhalation every four to six hoursAlbuterol Sulfate Discontinued 2 PUFF INHALATION EVERY 4-6 HOURS December 21, 2017 1:00am July 19, 2021 2:07pmStart: 93-72-7055cvtz 2 puff(s) by inhalation every four hours as needed for wheezingAlbuterol Sulfate HFA 108 (90 Base) MCG/ACT 2 puffs as needed Inhalation every 4 hrs prn for wheezing for 5 days PRN Jul, ActiveAlbuterol Sulfate 90 mcg/actuation Hfa Aerosol Inhaler (3 sources)Start: 12-21-2017 End: 18-87-7606dcwq 1 puff(s) by inhalation every four to six hours as needed for wheezingAlbuterol Sulfate 90 mcg/actuation Hfa Aerosol Inhaler Discontinued 2 PUFF INHALATION EVERY 4-6 HOURS as needed for Shortness Of Breath Or Wheezing December 21, 2017 1:00am July 19, 2021 2:07pmStart: 12-21-2017 End: 39-68-5716eabs 1 puff(s) by inhalation every four to six hours as needed for wheezingAlbuterol Sulfate 90 mcg/actuation Hfa Aerosol Inhaler Discontinued 2 PUFF INHALATION EVERY 4-6 HOURS as needed for Shortness Of Breath Or Wheezing December 21, 2017 12:00am July 19, 2021 1:07pmamitriptyline hydrochloride 25 mg oral tablet (20 sources)Tricyclic AntidepressantStart: 04-23-2018 End: 45-69-8700ydjv 10 mg by mouth at bedtimeAmitriptyline 25 mg Tablet Discontinued 10 MG PO Bedtime April 23, 2018 12:00am May 08, 2018 6:55pm Start: 04-23-2018 End: 14-11-2237lusq 10 mg by mouth at bedtimeAmitriptyline Discontinued 10 MG PO Bedtime April 23, 2018 12:00am May 08, 2018 6:55pmStart: 04-23-2018 End: 32-59-4750Gocoo: 03-13-2018 End: 54-31-0742hnvi 5 mg by mouth at bedtimeAmitriptyline 10 mg tablet Discontinued 5 MG PO Bedtime March 13, 2018 12:00am March 22, 2018 8:18am Start: 03-13-2018 End: 55-39-7145ynfl 5 mg by mouth at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 of left wrist, initial encounter]02-17-0684PyupvpydHcsb wounds of head; neck; and trunk (20 sources)Laceration - injury; Translations: [Laceration]40-19-7724Hshckaqk Other aftercare (20 sources)Surgical follow-up; Translations: [Encounter for removal of sutures] 48-64-8512PcdgypsaNyatg aftercare (1 source)Removal of sutures done; Translations: [Encounter for removal of sutures]69-10-7301VwtkrqenNarsz circulatory disease (3 sources)Orthostatic hypotension; Translations: [Orthostatic hypotension] EpisodicOther complications of (20 sources)Nausea and vomiting; Translations: [Vomiting of , unspecified]Onset: 939553-76-9854RjpqliirVucmw complications of (5 sources)Vomiting of , unspecified; Translations: [Nausea and vomiting during ]57-30-5837KkiopvavTutwj connective tissue disease (14 sources)Muscle pain; Translations: [Myalgia, unspecified site]12-31-2022 EpisodicOther disorders of stomach and duodenum (20 sources)Nonulcer dyspepsia; 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]08-22-2022 EpisodicOther disorders of stomach and duodenum (2 sources)Cannabis hyperemesis syndrome co-occurrent and due to cannabis abuse; Translations: [Cannabis hyperemesis syndrome concurrent with and due to cannabis abuse]68-12-5374DyzlfbiqDvylh ear and sense organ disorders (20 sources)Otitis externa; Translations: [Unspecified otitis externa, unspecified ear]67-57-7002UqpkdtyEvgnw gastrointestinal disorders (20 sources)Diarrhea; Translations: [Diarrhea, unspecified]20-12-8234Csujjygm Other infections; including parasitic (20 sources)Personal history of other infectious and parasitic diseases; Translations: [History of 2019 novel coronavirus disease (COVID-19)]10-07-2020 EpisodicOther injuries and conditions due to external causes (20 sources)Minor head injury; Translations: [Unspecified injury of head, initial encounter]78-53-9867AujozzaxMtdvm liver diseases (1 source)Fatty (change of) liver, not elsewhere classified; Translations: [Fatty (change of) liver, not elsewhere classified]Onset: 03-02-7795IhqoovgZalmu lower respiratory disease (20 sources)Cough; Translations: [Cough]10-10-8982QbnfyelxEixbe nervous system disorders (20 sources)Acute abdominal pain; Translations: [Other acute postprocedural pain]59-08-4201OvivzgsvMpswb and delivery including normal (20 sources); Translations: [Encounter for supervision of normal , unspecified, unspecified trimester]Onset: EpisodicOther screening for suspected conditions (not mental disorders or infectious disease) (1 source)Imaging result abnormal; Translations: [Abnormal findings on diagnostic imaging of other specified body structures]Onset: 97-48-1662Tihxiyp Other skin disorders (4 sources)Follicular disorder, unspecified; Translations: [FOLLICULAR DISORDER UNSPECIFIED]Onset: 55-10-9130QxehevcdShjsr upper respiratory disease (20 sources)Bleeding from nose; Translations: [Epistaxis]13-56-4700QjhqcmiaDmang upper respiratory infections (20 sources)Upper respiratory infection; Translations: [Acute upper respiratory infection, unspecified]09-23-7371RetyvhowXqghww media and related conditions (20 sources)Otitis media; Translations: [Otitis media, unspecified, unspecified ear]50-70-4295ZexsufuuCtuzpfl cyst (20 sources)Cyst of ovary; Translations: [Unspecified ovarian cyst, unspecified side]55-84-1668IzycyvgxDvmtxxcz; pneumothorax; pulmonary collapse (1 source)Interstitial emphysema of lung; Translations: [Interstitial emphysema] Onset: 14-23-9932WqkfoenzFonzxurbi by other medications and drugs (20 sources)Poisoning by unspecified drugs, medicaments and biological substances, accidental (unintentional), initial encounter; Translations: [Overdose in pediatric patient]04-14-3948BacjzicpYqgummyz codes; unclassified (20 sources)Left against medical advice; Translations: [Procedure and treatment not carried out because of patient's decision for other reasons]05-16-2022 EpisodicResidual codes; unclassified (1 source)Procedure and treatment not carried out because of patient's decision for other reasons; Translations: [PROC AND TX NOT CARRIED OUT PT OTH RSN]Onset: 51-12-5320OazuqqrcWaafidhl codes; unclassified (3 sources)Nasogastric tube in situ; Translations: [Presence of other specified devices]EpisodicResidual codes; unclassified (3 sources)Insomnia; Translations: [Insomnia, unspecified]EpisodicResidual codes; unclassified (2 sources)Other specified postprocedural statesEpisodicSprains and strains (1 source)Lower back injury; Translations: [Strain of muscle, fascia and tendon of lower back, initial encounter]Onset: 87-12-9061GlfwbirkUplqvfcma-related disorders (20 sources)Cannabis hyperemesis syndrome co-occurrent and due to cannabis abuse; Translations: [Cannabis abusewith other cannabis-induced disorder]Onset: 210612-01-0447UxxbmxuGvwxvpt and intentional self-inflicted injury (20 sources)Suicidal thoughts; Translations: [Suicidal ideations]06-22-2018 EpisodicSuperficial injury; contusion (20 sources)Abrasion of ear region; Translations: [Abrasion of unspecified ear, initial encounter]Onset: 338905-73-4311NmotkjeaWyphirlqyekr (1 source)Tachycardia, unspecified / R00.0(ICD-10)Onset: 34-61-1398Vxqrhjodozel (1 source)Cyclical vomiting, not intractable / G43.A0(ICD-10)Onset: 08-24-2017 Unclassified (1 source)Obesity, unspecified / E66.9(ICD-10)Onset: 29-67-8706Kdzlxwkufaob (2 sources)Migraine, unsp, not intractable, without status migrainosus / G43.909(ICD-10)Onset: 80-88-9094Qhgpegrdunld (1 source)Anxiety disorder, unspecified / F41.9(ICD-10)Onset: 08-25-2017 Unclassified (2 sources)Hematemesis / K92.0(ICD-10)Onset: 88-21-3441Huzjydilmnbz (1 source)detention (current) use of non-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-inflam (NSAID) / Z79.1(ICD-10)Onset: 36-91-0507Gwzoebjpsynp (1 source)Cntct w and expsr to environ tobacco smoke (acute) (chronic) / Z77.22(ICD-10)Onset: 96-45-7443Klxbwlrxvzxa (1 source)Epistaxis / R04.0(ICD-10)Onset: 83-19-5618Txdhkazkaikj (1 source)BMI pediatric, greater than or equal to 95% for age / Z68.54(ICD-10) Onset: 82-28-4472Awofuvodmzbe (1 source)Vitamin D deficiency, unspecified / E55.9(ICD-10)Onset: 08-25-2017 Unclassified (1 source)Unspecified abdominal pain / R10.9(ICD-10)Onset: 08-25-2017 Unclassified (1 source)Dorsalgia, unspecified / M54.9(ICD-10)Onset: 22-30-1333Vwpncyvkphit (1 source)Fatty (change of) liver, not elsewhere classified / K76.0(ICD-10) Onset: 18-44-1564Gzbuljskgidb (1 source)Vomiting, unspecified / R11.10(ICD-10)Onset: 46-81-9805Wxkkuyxthntc (1 source)Other specified cardiac arrhythmias / I49.8(ICD-10)Onset: 08-24-2017 Unclassified (1 source)CONTACT W/AND (SUSP) EXPOS COVID-19; Translations: [CONTACT W/AND (SUSP) EXPOS COVID-19]Onset: 61-36-5726Tzmdf infection (20 sources)Viral disease; Translations: [Viral infection, unspecified] 08-33-9704Jpdiqaye Past or Other Problems Problem ClassificationProblemDateDocumented DateEpisodic/ChronicSpondylosis; intervertebral disc disorders; other back problems (1 source)Dorsalgia, unspecified; Translations: [Dorsalgia, unspecified]Onset: 60-00-5545IbdjmtvaAkgxgkaqeloh (1 source)Vomiting, unspecified; Translations: [Vomiting, unspecified]Onset: 44-14-1623Zbtdrzfvrzdc (1 source)Tachycardia, unspecified; Translations: [Tachycardia, unspecified] Onset: 57-59-7868Mgqwekv tract infections (20 sources)Urinary tract infectious disease; Translations: [Urinary tract infection, site not specified]Onset: 849775-74-8654Yyofryum Results Test NameValueInterpretationReference RangeFacilityAmphetamine Screen Ql (U) Ordered By: Kelsey Espino on 72-15-1044Foxvblhesius Ql (U)NegativeNegative [facility] HospitalBarbiturates [Presence] in Urine by Screen methodOrdered By: Kelsey Espino on 59-05-7243Imgptbjqbvxa Screen Ql (U)Negative NegativeZanesville City HospitalBenzodiazepines Screen Ql (U)Ordered By: Kelsey Espino on 78-69-4121Djtimuizhmsiqdm Ql (U)NegativeNegativeZanesville City HospitalBenzoylecgonine [Presence] in Urine by Screen method Ordered By: Kelsey Espino on 71-47-4147Vhatszqpnkqywta Screen Ql (U)Negative NegativeZanesville City HospitalChlamydia/GC/Trich NAAon 08-28-2025 Chlamydia Trachomotis, NAANegativeNormalNegativeThe [facility] Comment on above:Order Comment: Reason for Exam Encounter for supervision of other normal , unspeci Specimen Comment: A duplicate report has been generated due to demographic Specimen Comment: updates.Performed By: #### PAP [id number], GCCHLAMTRI #### [facility] , #### OBUDS #### [facility] [address] [id number] USANeisseria Gonorrhoeae, NAANegativeNormalNegativeThe [facility] Physician GroupComment on above:Order Comment: Reason for Exam Encounter for supervision of other normal , unspeci Specimen Comment: A duplicate report has been generated due to demographic Specimen Comment: updates.Performed By: #### PAP [id number], GCCHLAMTRI #### [facility] , #### OBUDS #### [facility] [address] [place] [address] USATrichomonas NAANegativeNormalNegativeThe [facility] Physician GroupComment on above:Order Comment: Reason for Exam Encounter for supervision of other normal , unspeci Specimen Comment: A duplicate report has been generated due to demographic Specimen Comment: updates.Result Comment: Performed at: =[address], [place], [place] [id number] Social Media Job Titles: Viv Birmingham MD, Phone: [phone] PERFORMED BY: [facility] [address] [place] [address] PATHOLOGIST GRANULAR OPERATOR FRAN NUNEZ M.D.Performed By: #### PAP [id number], GCCHLAMTRI #### [facility] , #### OBUDS #### [place] [address] USAIGP,Aptima HPV,CtNg Age Gdlnon 25-81-5979CFX, Age GdlnNote Normal.The [facility] Physician GroupComment on above:Order Comment: Reason for Exam Encounter for supervision of other normal , unspeci Specimen Comment: [id number] Comment: TESTS RESULT FLAG UNITS REF RANGE LAB Clinician Provided Cytology Information No. of containers..01 ThinPrep Vial Age Algo ACOG Geeta... -20 12 FLAG LEGEND: L-Low Normal,H-High Normal,LL-Alert Low,HH-Alert High <-Panic Low,>-Panic High,A-Abnormal,AA-Critical Abnormal Performed at: 01 =G [facility] [place] [address] [place] [address] Viv Birmingham MD, Ldnxodbkw By: #### PAP [id number], GCCHLAMTRI #### [facility] , #### OBUDS #### [place] [address] USAPAP Chlamydia NAANegativeNormalNegativeThe [facility] Physician GroupComment on above:Order Comment: Reason for Exam Encounter for supervision of other normal , unspeci Specimen Comment: [id number] By: #### PAP [id number], GCCHLAMTRI #### [facility] , #### OBUDS #### [place] [address] USAPAP GonococcusNegativeNormalNegativeThe [facility] Physician GroupComment on above:Order Comment: Reason for Exam Encounter for supervision of other normal , unspeci Specimen Comment: [id number] Comment: Performed at: = - [facility] [address] [id number] Social Media Job Titles: Viv Birmingham MD, Phone: [phone] Performed at: - [facility] [address] [id number] Social Media Job Titles: Viv Birmingham MD, Phone: [phone] PERFORMED BY: [place] [address] PATHOLOGIST GRANULAR OPERATOR FRAN NUNEZ M.D.Performed By: #### PAP [id number], GCCHLAMTRI #### [facility] , #### OBUDS #### [place] [address] USAPap IGNoteNormal.The [facility] Physician GroupComment on above:Order Comment: Reason for Exam Encounter for supervision of other normal , unspeci Specimen Comment: [id number] Comment: TESTS RESULT FLAG UNITS REF RANGE LAB DIAGNOSIS: 02 NEGATIVE FOR INTRAEPITHELIAL LESION OR MALIGNANCY. Specimen adequacy: 02 Satisfactory for evaluation. No endocervical component is identified. Performed by: 02 Queta Lofton, Supervisory Advanced Clinical Specialist (ASC) . 02 Note: Note 02 [...] <-Panic Low,>-Panic High,A-Abnormal,AA-Critical Abnormal Performed at: [address] [address] Viv Birmingham MD, Htcjfulff By: #### PAP [id number], GCCHLAMTRI #### [facility] , #### OBUDS #### [facility] [address] [id number] USAOB Urine Drug Screen (NO THC)on 76-81-7646Vhsqhhimwpv Screen,UrineNegativeNormalNegativeThe [facility] Physician GroupComment on above: Order Comment: Reason for Exam Encounter for supervision of other normal , unspeciPerformed By: #### PAP [id number], GCCHLAMTRI #### [facility] , #### OBUDS #### [facility] [address] [place] [address] USABarbiturate Screen,UrineNegativeNormalNegativeThe [facility] Physician GroupComment on above:Order Comment: Reason for Exam Encounter for supervision of other normal , unspeciPerformed By: #### PAP 042494, GCCHLAMTRI #### [facility] , #### OBUDS #### [facility] [address] [place] [address] USABenzodiazepines Screen,UrineNegativeNormalNegativeThe [facility] Physician GroupComment on above:Order Comment: Reason for Exam Encounter for supervision of other normal , unspeciPerformed By: #### PAP 829530, GCCHLAMTRI #### [facility] , #### OBUDS #### [facility] [address] [place] [address] USACocaine Screen,UrineNegativeNormalNegativeThe [facility] Physician GroupComment on above:Order Comment: Reason for Exam Encounter for supervision of other normal , unspeciPerformed By: #### PAP 844103, GCCHLAMTRI #### [facility] , #### OBUDS #### [place] [address] USAOpiate Screen,UrineNegativeNormalNegativeMemorial Hospital [facility] Physician GroupComment on above:Order Comment: Reason for Exam Encounter for supervision of other normal , unspeciPerformed By: #### PAP 122615, GCCHLAMTRI #### [facility] , #### OBUDS #### [facility] [address] [place] [address] USAPhencyclidine Screen, UrineNegativeNormalNegativeThe [facility] Physician GroupComment on above:Order Comment: Reason for Exam Encounter for supervision of other normal , unspeciResult Comment: These are unconfirmed results and should not be used for legal purposes. Drug Cut-Off Concentration: AMPH 1000 ng/mL NIKOLAS 200 ng/mL SHRAVAN 200 ng/mL COCM 300 ng/mL OP 300 ng/mL PCP 25 ng/mL PERFORMED BY: [place] [address] PATHOLOGIST GRANULAR OPERATOR FRAN NUNEZ M.D.Performed By: #### PAP [id number], NONIHLAMTRI #### [facility] , #### OBUDS #### [address] [id number] USAOpiates [Presence] in Urine by Screen methodOrdered By: Kelsey Espino on 87-52-7554Nfczijm Screen Ql (U)NegativeNegMary Rutan HospitalPhencyclidine Screen Ql (U)Ordered By: Kelsey Espino on 33-45-9570Wbmqptxhzzime Ql (U)NegativeNegMary Rutan Hospital Comment on above:These are unconfirmed results and should not be used for legal purposes. Drug Cut-Off Concentration: AMPH 1000 ng/mL NIKOLAS 200 ng/mL SHRAVAN 200 ng/mL COCM 300 ng/mL OP 300 ng/mL PCP 25 ng/mLUrine Cultureon 63-70-3662Emejqdqp identified Cx Nom (U)25,000 colonies/ml mixed bacterial skin contaminants 2 Days PERFORMED BY: [place] [address] PATHOLOGIST GRANULAR OPERATOR FRAN NUNEZ M.D.NormalThe [facility] Physician GroupComment on above: Performed By: #### PAP [id number], NONIHLAMTRI #### [facility] , #### OBUDS #### [facility] [address] [place], [place] [address] USAC Urineon 77-54-7804Yyzabqhx identified Cx Nom (U) Microbiology PROCEDURE: Urine Culture [R1] SOURCE: U CleanCatch BODY SITE: COLLECTED DATE/TIME: 08/22/2025 19:48 EDT RECEIVED DATE/TIME: 08/22/2025 20:18 EDT START DATE/TIME: 08/22/2025 20:18 EDT FREE TEXT SOURCE: Sunday Johnson PA-C. Elizabeth LOVE, Sunday Abdi. FINAL REPORTS Final Report [] Verified Date/Time: 08/24/2025 10:07 EDT 3,000 cfu/ml Mixed skin contaminants Performing Locations R1: This test was performed at: [facility], [address] [place] [address], [address] , [place], QrvldoUvbrzqPremier Health Atrium Medical CenterComment on above:Performed By: #### [id number] #### [facility] [address] [place] [address] 1st Trimesteron 11-27-2516UD 1st TrimesterExam Date/Time: 08/22/2025 21:20 EDT Reason [...] Mahamed Quispe MD Transcribed by: KIRA Technologist: OdalismimiGlenbeigh HospitalBMPon 01-26-9241Aioth gap [Moles/Vol]14 mmol/LNormal6-16[facility] Comment on above:Performed By: #### [id number] #### [facility] [address] [place], [place] [address]MMB/Creat Ratio30 No HpqfyGzyz04-71DkwiwqGlenbeigh Hospital Comment on above:Performed By: #### [id number] #### [facility] [address] [place], [place] [address]Tguqagi [Mass/Vol]10.3 mg/dLNormal8.9-11.1FSelect Medical Specialty Hospital - Cincinnati NorthComment on above:Performed By: #### [id number] #### [facility] [address] [place], [place] [address]Equcqxzx [Moles/Vol]97 mmol/UTqb731-782EvywqmGlenbeigh HospitalComment on above:Performed By: #### [id number] #### [facility] [address] [place], [place] [address]FU2 [Moles/Vol]27 mmol/WFtjuug71-51CahrnwGlenbeigh Hospital Comment on above:Performed By: #### [id number] #### [facility] [address] [place], [place] [address]Sebeowlicq [Mass/Vol]0.9 mg/dLNormal0.5-1.3FSelect Medical Specialty Hospital - Cincinnati NorthComment on above:Performed By: #### [id number] #### [facility] [address] [place], [place] [address]Ypokqhi [Mass/Vol]106 mg/rRFfjvja12-207MqhpbsGlenbeigh HospitalComment on above:Performed By: #### [id number] #### [facility] [address] [place], [place] [address]Qhvsvaejb [Moles/Vol]3.3 mmol/LLow3.5-5.3FSelect Medical Specialty Hospital - Cincinnati NorthComment on above:Performed By: #### [id number] #### [facility] [address] [place], [place] [address]Lxvljz [Moles/Vol]135 mmol/RFeyotv861-964QityhpGlenbeigh HospitalComment on above:Performed By: #### [id number] #### [facility] [address] [place], [place] [address]Zefy nitrogen [Mass/Vol]27 mg/dLHigh5-21Glenbeigh HospitalComment on above:Performed By: #### [id number] #### [facility] [address] [place] [address]SaJD Quanton 41-54-4822Nged hCG Mwu8155 mIU/mLHigh1-3FSelect Medical Specialty Hospital - Cincinnati NorthComment on above:Result Comment: 'F NON < 1 - 3' ' 0.2 - 1 WEEK = 5 TO 50' ' 1 - 2 WEEKS = 50 - 500' ' 2 - 3 WEEKS = 100 - 5000' ' 3 - 4 WEEKS = 500 - 73159' ' 4 - 5 WEEKS = 1000 - 96442' ' 5 - 6 WEEKS = 42899 - 923719' ' 6 - 8 WEEKS = 54838 - 718598' ' 8 - 12 WEEKS = 44722 - 822850'Performed By: #### [id number] #### [facility] [address] [place], [place] [address]AVQ w/ Auto Diffon 67-86-5385Arxlntfy Absolute0.1 E9/LNormal 0.0-0.2FSelect Medical Specialty Hospital - Cincinnati NorthComment on above:Performed By: #### [id number] #### [facility] [address] [place], [place] [address]Hmosbjysf/100 WBC (Bld)0.8 %Normal0.0-2.0Glenbeigh HospitalComment on above:Performed By: #### [id number] #### [facility] [address] [place], [place] [address]Gzg Absolute0.0 E9/LNormal0.0-0.5FSelect Medical Specialty Hospital - [facility] North Comment on above:Performed By: #### [id number] #### [facility] [address] [place], [place] [address]Yorgqzyodhg/100 WBC (Bld)0.1 %Normal0.0-8.0Glenbeigh HospitalComment on above:Performed By: #### [id number] #### [facility] [address] [place], [place] [address]Kfdkfdclvvm distribution width (RBC) [Ratio]14.0 %Normal 10.9-14.2FSelect Medical Specialty Hospital - Cincinnati NorthComment on above:Performed By: #### [id number] #### [facility] [address] [place] [address]Tsljjiswhx (Bld) [Volume fraction]44.8 %Feubiz74.0-46.0Glenbeigh HospitalComment on above:Performed By: #### [id number] #### [facility] [address] [place] [address]Zcljybfvra (Bld) [Mass/Vol]15.6 g/vQTfaidr96.0-16.0G[facility]igh HospitalComment on above:Performed By: #### [id number] #### [facility] [address] [place] [address]Cpxuf Absolute1.4 E9/LNormal1.0-4.0[facility] Comment on above:Performed By: #### [id number] #### [facility] [address] [place] [address]Iylkguclbgl/100 WBC (Bld)8.2 %Low14.0-50.0G[facility]beigh HospitalComment on above:Performed By: #### [id number] #### [facility] [address] [place] [address]ITI (RBC) [Entitic mass]30.1 mjZlamfq50.0-34.0[facility]igh HospitalComment on above:Performed By: #### [id number] #### [facility] [address] [place], [place] [address]EQMV (RBC) [Mass/Vol]34.8 g/nCQbsslh11.4-36.0G[facility]igh HospitalComment on above:Performed By: #### [id number] #### [facility] [address] [place], [place] [address]MYW (RBC) [Entitic vol]86.4 zWMzcjij79.0-100.0G[facility]beigh HospitalComment on above:Performed By: #### [id number] #### [facility] [address] [place] [address]Fuho Absolute0.9 E9/LNormal0.2-1.0[facility] Comment on above:Performed By: #### [id number] #### [facility] [address] [place] [address]Lxszaprlb/100 WBC (Bld)5.4 %Normal4.0-14.0G[facility]beigh HospitalComment on above:Performed By: #### [id number] #### [facility] [address] [place], [place] [address]Ubwrwo Xgvxuboo10.1 E9/LHigh2.0-7.5FSelect Medical Specialty Hospital - [facility] North Comment on above:Performed By: #### [id number] #### [facility] [address] [place], [place] [address]Kpxuez Auto85.5 %High36.0-75.0[facility] Comment on above:Performed By: #### [id number] #### [facility] [address] [place], [place] [address]Ecxpersb348.0 E9/XQykwzb822.0-500.0[facility] Comment on above:Performed By: #### [id number] #### [facility] [address] [place], [place] [address]Mutvtiho mean volume (Bld) [Entitic vol]8.0 fLNormal6.4-10.8 [facility]igh HospitalComment on above:Performed By: #### [id number] #### [facility] [address] [place] [address]MTB5.2 E12/LNormal4.3-5.9G[facility]beigh HospitalComment on above:Performed By: #### [id number] #### [facility] [address] [place] [address]PKX36.5 E9/LHigh4.0-11.0[facility]beigh HospitalComment on above:Performed By: #### [id number] #### [facility] [address] [place] [address] Clinical Summaryon 71-10-0423YA Clinical SummaryED Clinical Summary [address] [address] ED Clinical Summary Person Information Name: PILI PARIKH/[place] Age: 20 Years : 2005 Sex: Female Language: Taiwanese PCP: MODESTA CHAND CNP Marital Status: Single [...] 08/22/2025 21:56:29 08/22/2025 21:56:29 ADDRESS: [address] [id number] PHYS DOC NOTES: MEDICAL INFORMATION: Prescriptions Given: Medications to Continue Taking That Have Changed [id number], [address], [place] [id number], [phone] START: ondansetron (Zofran ODT 4 mg Tab-Dis) [...] Vomiting, Adult Follow up: With: Address: When: [facility] [phone] In 3 days 08/25/2025 Comments: Follow-up with Kelsey cuadra TRAFFIC OR SYSTEM DISPATCHER at [facility]. Use nausea medications as prescribed. Eat multiple small meals a day. Increase your fluid intake. With: Address: When: MODESTA CHAND [address] [place] (more content not included)... NormalFisher Anthony Medical CenterED Note-Nursingon 53-25-9857HL Note-NursingED Note-Nursing pt requesting to leave ama. pt states she does not want to keep waiting and just wants to go home. pt made aware of risks of leaving by millicent sanchez and Dr. guthrie. pt still requesting to leave ama. pt informed of when to come back and pt verbalized understanding. ama form signed prior to pt leaving.[facility] CenterED Note-Physicianon [id number] Note-PhysicianED Note-Physician Basic Information Time Seen: Sunday [...] Zofran and ODT as well as Phenergan [place] were prescribed. The patient still wanted to leave AGAINST MEDICAL ADVICE. Discussed with her that she may return atany time to continue her care. She will follow-up with her TRAFFIC OR SYSTEM DISPATCHER at [facility]. Returnprecautions were discussed. All questions were [...] PRN Nausea/Vomiting, # 30 tab(s), Refills(s) 0, [id number], cm, 08/22/25 17:08:00 EDT, Height/Length Dosing, 95, kg, 08/22/25 17:08:00EDT, Weight Dosing promethazine, 25 mg = 1 supp, Rectal, q6hr, PRN Nausea/Vomiting, # 16 EA, Refills(s) 0, [id number] 157, cm, 08/22/25 17:08:00 EDT, Height/Length Dosing, 95, kg, 08/22/25 17:08:00 EDT, Weight Dosing promethazine, 25 mg = 1 supp, Supp, Rectal, Once, Stop date 08/22/25 20:02:00 EDT, STAT, Start date08/22/25 20:02:00 EDT, 08/22/25 20:02:00 EDT Urinary Catheter Insertion Medications Admini (more content not included)...[facility] HospitalComment on above:Result Comment: Electronically Signed By: Sunday Johnson PA-C\.br\Date and Time Signed: 08/22/2519:13 EDT\.br\Electronically Co- Signed By: Pradeep Guthrie DO\.br\Date and Time Co-Signed: 08/22/2521:55 EDTED Patient Summaryon [id number] Patient SummaryED Patient Summary [address] [address] Patient Discharge Instructions Person Information Name: PILI PARIKH Age: 20 Years Arrival Date: 08/22/2025 17:04:27 Discharge Diagnosis: 1:Abdominal pain; 2:Nausea & vomiting; 3:; Hyperemesis gravidarum;Left against medical advice Primary Care Physician: MODESTA CHAND CNP Provider Information Primary Provider: Federico Randolph DO Advanced Searchlight Operator:Elizabeth LOVE, Sunday Abdi. The exam and treatment you received in the Emergency Department were for an urgent problem and are not intended as complete care. It is important that you follow up with a doctor, nurse practitioner,or physician???s executive assistant for ongoing care. If your symptoms become worse or you do not improve asexpected and you are unable to reach your usual health care provider, you should return to the Emergency Department. We are available 24 hours a day. JLPILI TERRY has been given the following list of patient education materials, prescriptions andfollow-up instructions: Follow-up Instructions: With: Address: When: [facility] [phone] In 3 days 08/25/2025 Comments: Follow-up with Kelsey your TRAFFIC OR SYSTEM DISPATCHER at [facility]. Use nausea medications as prescribed. Eat multiple small meals a day. Increase your fluid intake. With: Address: When: MODESTA [place]AND [facility] [address] [phone] [facility] (1) In 3 days 08/25/2025 Comments: [...] opioids can be used to help relieve pitkmsbe-am-icomqi pain and are often prescribed following a [...] more often than prescribed. (more content not included)...NormalGlenbeigh HospitalHep [facility] Panelon 53-06-2623Dfclqrd [Mass/Vol]5.2 g/dLHigh3.3-5.0[facility] Comment on above:Performed By: #### [id number] #### [facility] [address] [place], [place] [address]Knvrwue/Globulin [Mass ratio]1.4 {ratio}Normal1.1-2.2FSelect Medical Specialty Hospital - Cincinnati NorthComment on above:Performed By: #### [id number] #### [facility] [address] [place], [place] [address]Pne Phos71 Int._Unit/LGfkdid72-27NikbnrGlenbeigh Hospital Comment on above:Performed By: #### [id number] #### [facility] [address] [place], [place] [address]AGC02 Int._Unit/LNormal6-46[facility] HospitalComment on above:Performed By: #### [id number] #### [facility] [address] [place], [place] [address]JZJ89 Int._Unit/LNormal5-43G[facility]igh HospitalComment on above:Performed By: #### [id number] #### [facility] [address] [place], [place] [address]Uxwl Direct0.2 mg/dLNormal0.0-0.4FSelect Medical Specialty Hospital - [facility] North Comment on above:Performed By: #### [id number] #### [facility] [address] [place], [place] [address]Idwq Indirect0.5 mg/dLNormal0.1-0.9[facility] Comment on above:Performed By: #### [id number] #### [facility] [address] [place], [place] [address]Dsof Total0.7 mg/dLNormal0.0-1.1FSelect Medical Specialty Hospital - [facility] North Comment on above:Performed By: #### [id number] #### [facility] [address] [place], [place] [address]Arszeaxh (S) [Mass/Vol]3.8 g/dLNormal1.4-4.0[facility]igh HospitalComment on above:Performed By: #### [id number] #### [facility] [address] [place], [place] [address]Kuyrcjg [Mass/Vol]9.0 g/dLHigh6.0-7.8Glenbeigh HospitalComment on above:Performed By: #### [id number] #### [facility] [address] [place], [place] [address]Gjdovf Levelon 11-41-0730Yeqwel Lvl21 unit/NRhzule67-45UrltehGlenbeigh HospitalComment on above:Performed By: #### [id number] #### [facility] [address] [place], [place] [address]AA with Cult Rflxon 38-29-2259Yvzki (U)YellowNormalYellowGlenbeigh HospitalComment on above:Order Comment: Added by Discern Expert Result Comment: Microscopic readings are only performed on those samples that meet specific criteria set forth by [facility]. Performed By: #### [id number] #### [facility] [address] [place], [place] [address]Tajdsyc (U) [Mass/Vol]NegativeNormalNegativeGlenbeigh HospitalComment on above:Order Comment: Added by Husam ExpertPerformed By: #### [id number] #### [facility] [address] [place], [place] [address]Nxnkjpg Ql (U)3+ mg/dLAbnormalNegMorrow County HospitalComment on above:Order Comment: Added by Husam ExpertPerformed By: #### [id number] #### [facility] [address] [place], [place] [address]IL BloodNegativeNormalNegMorrow County Hospital Comment on above:Order Comment: Added by Husam ExpertPerformed By: #### [id number] #### [facility] [address] [place], [place] [address]UY BacteriaTraceNormalTraceGlenbeigh HospitalComment on above:Order Comment: Added by Husam ExpertPerformed By: #### [id number] #### [facility] [address] [place], [place] [address]PL ClarityTurbidAbnormalClearFSelect Medical Specialty Hospital - Cincinnati NorthComment on above:Order Comment: Added by Discern ExpertPerformed By: #### [id number] #### [facility] [address] [place], [place] [address]YH Hyal Ezky4-9Hohvwn6-7MdyfgqSelect Medical Specialty Hospital - Cincinnati NorthComment on above:Order Comment: Added by Discern ExpertPerformed By: #### [id number] #### [facility] [address] [place], [place] [address]UB Leuk Est75 Lesli/uLAbnormalNegativeGlenbeigh Hospital Comment on above:Order Comment: Added by Husam ExpertPerformed By: #### [id number] #### [facility] [address] [place] [address]TI MucousTraceNormalNegMorrow County HospitalComment on above:Order Comment: Added by Husam ExpertPerformed By: #### [id number] #### [facility] [address] [place] [address]GB NitriteNegativeNormalNegMorrow County Hospital Comment on above:Order Comment: Added by Husam ExpertPerformed By: #### [id number] #### [facility] [address] [place] [address]QR pH6.5Invalid Interpretation Code5.0-9.0Glenbeigh HospitalComment on above:Order Comment: Added by Husam ExpertPerformed By: #### [id number] #### [facility] [address] [place], [place] [address]JL Protein1+ mg/dLAbnormalNegMorrow County Hospital Comment on above:Order Comment: Added by Husam ExpertPerformed By: #### [id number] #### [facility] [address] [place] [address]MF DLN2-57Uvjvgdie7-6DmzhtlSelect Medical Specialty Hospital - Cincinnati NorthComment on above:Order Comment: Added by Husam ExpertPerformed By: #### [id number] #### [facility] [address] [place], [place] [address]DG Spec Grav1.038Invalid Interpretation Code1.005-1.030Glenbeigh HospitalComment on above:Order Comment: Added by Discern Expert Performed By: #### [id number] #### [facility] [address] [place], [place] [address]AM Squam Epithelial>10Invalid Interpretation CodeGlenbeigh HospitalComment on above:Order Comment: Added by Discern ExpertPerformed By: #### [id number] #### [facility] [address] [place], [place] [address]NK UrobilinogenNegativeNormalNegativeGlenbeigh HospitalComment on above:Order Comment: Added by Discern ExpertPerformed By: #### [id number] #### [facility] [address] [place], [place] [address]OX DNC8-91Msdiecpr1-7IngtfrSelect Medical Specialty Hospital - Cincinnati NorthComment on above:Order Comment: Added by Discern ExpertPerformed By: #### [id number] #### [facility] [address] [place], [place] [address]Bmivllvxrlsw (U) [Mass/Vol]NegativeNormalNegativeGlenbeigh HospitalComment on above:Order Comment: Added by Discern ExpertPerformed By: #### [id number] #### [facility] [address] [place], [place] [address]JX with Cult Rflx SPon 50-32-2459XI Spec DescClean CatchNormal [facility]igh HospitalComment on above:Performed By: #### [id number] #### [facility] [address] [place], [place] [address]dAFPtj 06-78-1053bTLY68 mL/min/1.73 s4Goohbm>=59Glenbeigh HospitalComment on above:Performed By: #### [id number] #### [facility] [address] [place], [place] [address]Gspjl Cultureon 13-66-3614Qykydfnz identified Cx Nom (U) >100,000 colonies/ml mixed bacterial skin contaminants 2 Days PERFORMED BY: [place] [address] PATHOLOGIST GRANULAR OPERATOR FRAN NUNEZ M.D.[facility] Physician GroupComment on above: Performed By: #### [id number] [id number], [id number] #### [facility] , #### OBUDS #### [place] [address] USAUrine Cultureon 58-58-9330Dasfpefq identified Cx Nom (U) <9,000 colonies/ml mixed bacterial skin contaminants 2 Days PERFORMED BY: [place] [address] PATHOLOGIST GRANULAR OPERATOR FRAN NUNEZ M.D.[facility] Physician GroupComment on above: Performed By: #### CUU #### [place] [address] USAUrine cultureOrdered By: Jasmeet Dahl on 76-56-4300Jlqicewn identified Cx Nom (U)Urine cultureZanesville City HospitalUrine Cultureon 00-55-2171Guhcxadz identified Cx Nom (U)>100,000 colonies/ml mixed bacterial skin contaminants 2 Days PERFORMED BY: [place] [address] PATHOLOGIST GRANULAR OPERATOR IDANIA GODOY M.D.[facility] Physician GroupComment on above: Performed By: #### CUU #### [place] [id number] USACT Abdomen/Pelvis w/ Contraston 31-05-4943NX Abdomen/Pelvis w/ ContrastExam Date/Time: 01/16/2025 18:35 EST [...] Dolan MD Transcribed by: KIRA Technologist: [facility] InstituteCT Chest w/ Contraston 99-23-3001IL Chest w/ ContrastExam Date/Time: 01/16/2025 18:35 EST [...] by: KIRA Technologist: [facility] HospitalCT Head or Brain w/o Contraston 33-97-5649FM Head or Brain w/o ContrastExam Date/Time: 01/16/2025 [...] by: KIRA Technologist: [facility] HospitalCT Spine Cervical w/o Contraston 83-44-6410AI Spine Cervical w/o ContrastExam Date/Time: 01/16/2025 18:31 [...] Anselmo Dolan MD Transcribed by: KIRA Technologist: [facility] CenterED Note-Physicianon [id number] Note-PhysicianED Note-Physician Basic Information Time Seen: Rashaad [...] and Complexity of Problems Differential Diagnosis: [] [facility] Data External documents reviewed: [] [...] day(s), # 21 tab(s), Refills(s) 0, Pharmacy: [facility]/pharmacy #[id number], 157, cm, 01/16/25 17:56:00 EST, Height/Length [...] food, # 20 tab(s), Refills(s) 0, Pharmacy: [facility]/pharmacy #[id number], 157, cm, 01/16/25 17:56:00 EST, Height/Length Dosing, 95, kg, 01/16/25 17:56:00 EST, Weight Dosing promethazine, 12.5 mg = 0.5 tab(s), Tab, Oral, Once, Stop date 01/16/25 19:41:00 EST, STAT, Start date 01/16/25 19:41:00 EST, 01/16/25 19:41:00 EST promethazine, 12.5 mg = 1 tab(s), Oral, q6hr, PRN for nausea/vomiting, # 10 tab(s), Refills(s) 0, Pharmacy: [facility]/pharmacy #[id number], 157, cm, 01/16/25 17:56:00 EST, Height/Length Dosing, 95, kg, 01/16/25 17:56:00 EST, Weight Dosing ABO/Rh ABO/Rh History Check Antibody Screen Basic Metabolic Panel Beta hCG Qual Blood Bank ID# CBC w/ Auto Diff CT Abdomen/Pelvis w/ Contrast CT Chest w/ Contrast CT Head or Brain w/o Cont (more content not included)...[facility] HospitalComment on above:Result Comment: Electronically Signed By: Rashaad Albrecht PA-C\.br\Date and Time Signed: 01/16/2522:30 EST\.br\Electronically Co-Signed By: August Bermudez M.D.\.br\Date and Time Co-Signed: 01/17/25 08:51 ESTXR Knee Complete 4+ Views Lefton 07-87-9056RC Knee Complete 4+ Views LeftExam Date/Time: 01/16/2025 [...] Carlos Araya DO Transcribed by: KIRA Technologist: [facility] HospitalXR Knee Complete 4+ Views Righton 82-50-8835NS Knee Complete 4+ Views RightExam Date/Time: 01/16/2025 [...] Carlos Araya DO Transcribed by: KIRA Technologist: AMDFayette County Memorial HospitalABO/Rhon 78-95-8654BNV/RhPositiveInvalid Interpretation [facility] Comment on above:Performed By: #### [id number] #### [facility] [address] [place], [place] [address]CLE/Rh History Checkon 93-83-4032RBA/Rh History CheckVerified Hx Blood TypeNoPremier Health Atrium Medical CenterComment on above:Performed By: #### [id number] #### [facility] [address] [place], [place] [address]EWQMin 15-86-5481HYLG Gel InterpNegativeFayette County Memorial HospitalComment on above:Performed By: #### [id number] #### [facility] [address] [place], [place] [address]W hCG Qualon 05-20-6335Ewdc HCG ( test) QlNegative [facility] HospitalComment on above:Performed By: #### [id number] #### [facility] [address] [place], [place] [address]NNIDU BANKOrdered By: Virginia Mccain on 45-67-4077BIT/Rh Interp PositiveInvalid Interpretation [facility] BB SubsectionABSC Gel InterpNegative (01/16/25 7:26 PM)NormalSOU[facility]WE[facility] BB SubsectionBMPon 39-68-5817Ystzg gap [Moles/Vol]20 mmol/LHigh6-16[facility] HospitalComment on above:Performed By: #### [id number] #### [facility] [address] [place], [place] [address]Jfmfcpb [Mass/Vol]10.9 mg/dLNormal8.9-11.1FSelect Medical Specialty Hospital - Cincinnati NorthComment on above:Performed By: #### [id number] #### [facility] [address] [place], [place] [address]Mvztfdaj [Moles/Vol]101 mmol/WUiegfp149-275HndenzGlenbeigh HospitalComment on above:Performed By: #### [id number] #### [facility] [address] [place], [place] [address]AZ2 [Moles/Vol]22 mmol/TYtxfhs18-00HzmpycGlenbeigh Hospital Comment on above:Performed By: #### [id number] #### [facility] [address] [place], [place] [address]Mhnoxwewab [Mass/Vol]0.9 mg/dLNormal0.5-1.3FSelect Medical Specialty Hospital - Cincinnati NorthComment on above:Performed By: #### [id number] #### [facility] [address] [place], [place] [address]Dklykjr [Mass/Vol]116 mg/qSZsuwir60-029ObbuowGlenbeigh HospitalComment on above:Performed By: #### [id number] #### [facility] [address] [place], [place] [address]Tzxlfkfqi [Moles/Vol]3.3 mmol/LLow3.5-5.3FSelect Medical Specialty Hospital - Cincinnati NorthComment on above:Performed By: #### [id number] #### [facility] [address] [place], [place] [address]Daldpd [Moles/Vol]140 mmol/MBzfxop616-450KgggfoGlenbeigh HospitalComment on above:Performed By: #### [id number] #### [facility] [address] [place], [place] [address]Korn nitrogen [Mass/Vol]23 mg/dLHigh5-21[facility]igh HospitalComment on above:Performed By: #### [id number] #### [facility] [address] [place], [place] [address]Idcj nitrogen/Creatinine [Mass ratio]26 No ScovmUxdy36-57WsjmrsGlenbeigh HospitalComment on above:Performed By: #### [id number] #### [facility] [address] [place], [place] [address]Koclw Bank ID#on [id number]#[id number] Interpretation CodeGlenbeigh HospitalComment on above:Performed By: #### [id number] #### [facility] [address] [place], [place] [address]HAE w/ Auto Diffon 71-30-3747Mezqvsqnx/100 WBC (Bld)0.3 %Normal 0.0-2.0[facility]igh HospitalComment on above:Performed By: #### [id number] #### [facility] [address] [place] [address]Yxpeknnyg/Leukocytes Auto (Bld) [Pure # fraction]0.0 E9/LNormal 0.0-0.2FSelect Medical Specialty Hospital - Cincinnati NorthComment on above:Performed By: #### [id number] #### [facility] [address] [place] [address]Xaeziiiqwuw (Bld) [#/Vol]0.0 E9/LNormal0.0-0.5FSelect Medical Specialty Hospital - Cincinnati NorthComment on above:Performed By: #### [id number] #### [facility] [address] [place], [place] [address]Tjysylnocaz/100 WBC (Bld)0.0 %Normal0.0-8.0[facility] HospitalComment on above:Performed By: #### [id number] #### [facility] [address] [place], [place] [address]Efnpllchlil distribution width (RBC) [Ratio]13.7 %Normal 10.9-14.2FSelect Medical Specialty Hospital - Cincinnati NorthComment on above:Performed By: #### [id number] #### [facility] [address] [place] [address]Qsbbmtxszd (Bld) [Volume fraction]46.9 %High34.0-46.0[facility] HospitalComment on above:Performed By: #### [id number] #### [facility] [address] [place] [address]Glaeunjnog (Bld) [Mass/Vol]16.0 g/qQBqzqhl78.0-16.0[facility] HospitalComment on above:Performed By: #### [id number] #### [facility] [address] [place] [address]Hlnecddixum (Bld) [#/Vol]1.4 E9/LNormal1.0-4.0[facility] HospitalComment on above:Performed By: #### [id number] #### [facility] [address] [place] [address]Chvegpxcevr/100 WBC (Bld)11.6 %Low14.0-50.0[facility]igh HospitalComment on above:Performed By: #### [id number] #### [facility] [address] [place] [address]PUD (RBC) [Entitic mass]28.8 bfBvuuhi63.0-34.0[facility] HospitalComment on above:Performed By: #### [id number] #### [facility] [address] [place] [address]UMYX (RBC) [Mass/Vol]34.1 g/rTIwrdlz00.4-36.0[facility] HospitalComment on above:Performed By: #### [id number] #### [facility] [address] [place] [address]JCQ (RBC) [Entitic vol]84.3 aHUtaygt71.0-100.0[facility] HospitalComment on above:Performed By: #### [id number] #### [facility] [address] [place] [address]Witqphzhx (Bld) [#/Vol]0.6 E9/LNormal0.2-1.0[facility] HospitalComment on above:Performed By: #### [id number] #### [facility] [address] [place] [address]Knhqodipenf (Bld) [#/Vol]10.0 E9/LHigh2.0-7.5FSelect Medical Specialty Hospital - Cincinnati NorthComment on above:Performed By: #### [id number] #### [facility] [address] [place] [address]Tfcbzdnhrfq/100 WBC (Bld)83.4 %High36.0-75.0G[facility]beigh HospitalComment on above:Performed By: #### [id number] #### [facility] [address] [place] [address]Rjaewnja mean volume (Bld) [Entitic vol]8.9 fLNormal6.4-10.8 [facility] HospitalComment on above:Performed By: #### [id number] #### [facility] [address] [place] [address]Uwtnocuwu (Bld) [#/Vol]300.0 E9/ZFyclxf791.0-500.0[facility] HospitalComment on above:Performed By: #### [id number] #### [facility] [address] [place] [address]PNH (Bld) [#/Vol]5.6 E12/LNormal4.3-5.9[facility]igh HospitalComment on above:Performed By: #### [id number] #### [facility] [address] [place] [address]ZAB corrected for nucl RBC Auto (Bld) [#/Vol]12.0 E9/LHigh 4.0-11.0[facility]igh HospitalComment on above:Performed By: #### [id number] #### [facility] [address] [place] [address]YUTZBTDLXSryhtgn By: SYSTEM SYSTEM on 94-83-1951Yuvyllx [Mass/Vol]5.5 g/dLHigh3.3 - 5.0 gm/dLRemisol ChemAlbumin/Globulin [Mass ratio] 1.5 {ratio}Normal1.1 - 2.2Remisol ChemALP [Catalytic activity/Vol]71 [iU]/d Nxyayh77 - 98 Int._Unit/LRemisol ChemALT No additional P-5'-P [Catalytic activity/Vol]42 [iU]/dNormal6 - 46 Int._Unit/LRemisol ChemAnion gap [Moles/Vol] 20 mmol/LHigh6 - 16 mEq/LRemisol ChemAST [Catalytic activity/Vol]19 [iU]/dNormal 5 - 43 Int._Unit/LRemisol ChemBilirubin [Mass/Vol]1.0 mg/dLNormal0.0 - 1.1 mg/dL Remisol ChemBilirubin.direct [Mass/Vol]0.2 mg/dLNormal0.0 - 0.4 mg/dLRemisol ChemBilirubin.indirect [Mass or moles/Vol]0.8 mg/dLNormal0.1 - 0.9 mg/dLRemisol ChemCalcium [Mass/Vol]10.9 mg/dLNormal8.9 - 11.1 mg/dLRemisol ChemChloride [Moles/Vol]101 mmol/GJcpmif797 - 111 mmol/LRemisol ChemCO2 [Moles/Vol]22 mmol/L Mdzyie41 - 31 mmol/LRemisol ChemCreatinine [Mass/Vol]0.9 mg/dLNormal0.5 - 1.3 mg/dLRemisol GzyqiHVT96 mL/min/1.73 x9Fzwuvk>=59mL/min/1.73 p8Furzcez Chem Ethanol Lvlmg/dLNormal<=11mg/dLRemisol ChemGlobulin (S) [Mass/Vol]3.6 g/dLNormal 1.4 - 4.0 gm/dLRemisol ChemGlucose [Mass/Vol]116 mg/cQTrdurk20 - 199 mg/dL Remisol ChemLactic Acid Lvl1.6 mmol/LNormal0.5 - 2.2 mmol/LRemisol ChemLipase [Catalytic activity/Vol]8 U/LLow13 - 58 unit/LRemisol ChemPotassium [Moles/Vol] 3.3 mmol/LLow3.5 - 5.3 mmol/LRemisol ChemProtein [Mass/Vol]9.1 g/dLHigh6.0 - 7.8 gm/dLRemisol ChemSodium [Moles/Vol]140 mmol/TFgdgae786 - 145 mmol/LRemisol Chem Troponin HS3.40 pg/mLLow10.10 - 27.10 pg/mLRemisol ChemComment on above: Interpretive Data: The 95% CI (Confidence Interval) PPV (Positive Predictive Value) for myocardial infarction in females is 38 pg/mL, in males 51 pg/mL. The results should be used in conjunction withclinical conditions of myocardial infarction. (Access High Sensitivity Troponin I Instructions For Use, [employer], June 2018)Urea nitrogen [Mass/Vol]23 mg/dLHigh5 - 21 mg/dLRemisol ChemUrea nitrogen/Creatinine [Mass ratio]26 mg/plZbew26 - 20Remisol ChemCOAGULATION Ordered By: Ghazal Morrell on 42-15-1622iKCQ Coag (PPP) [Time]23.1 sLow25.1 - 36.5 second(s)[facility] Auto CoagComment on above:Interpretive Data: Parameter 15 [...] the same coagulation reagent and instrumentation as [facility]. Currently there are no coagulation studies available worldwide for children to 14 days, andno normal ranges. Heparin therapeutic range (represented by Anti-Factor Xa activity of 0.2 - 0.4 U/mL) corresponds to PTT of 56.6 - 109.0 sec.INR Coag (PPP) [Relative time]1.10 {INR}Invalid Interpretation CodeSOUTHWESTERN MEDICAL [facility] Auto CoagComment on above:Interpretive Data: INR results are specifically intended to assess patients stabilized on long-term Anticoagulation therapy suggested INR s Less Intensive Anticoagulation 2.0 3.0 Conventional Range 3.0 4.5PT Coag (PPP) [Time]12.3 sNormal9.4 - 12.5 second(s) [facility] Auto CoagComment on above:Interpretive Data: 15 days [...] the same coagulation reagent and instrumentation as [facility]. Currently there are no coagulation studies available worldwide for children to 14 days, andno normal ranges.ED Clinical Summaryon [id number] Clinical SummaryED Clinical Summary [place] [address] ED Clinical Summary Person Information Name: PILI PARIKH/[place] Age: 19 Years : 2005 Sex: Female Language: Taiwanese PCP: MODESTA CHAND CNP Marital Status: Single [...] 01/16/2025 20:36:16 01/16/2025 20:36:16 01/16/2025 20:36:16 ADDR[facility]: [facility] [facility] [id number] PHYS DOC NOTES: MEDICAL INFORMATION: Prescriptions Given: New Medications [facility]/pharmacy #[id number], [address], [place] [id number], [phone] cyclobenzaprine (cyclobenzaprine 5 mg Tab) 1 Tablets By Mouth 3 times a day for 7 Days. Refills: 0. Medications to Continue Taking That Have Changed [facility]/pharmacy #[id number], [address], [place] [id number], [phone] START: naproxen (naproxen 500 mg Tab) 1 [...] Contusion; Fall Prevention in the Home, Adult, Xhdv-sp-Mjmu Follow up: With: Address: When: MODESTA CHAND [address] [place] [address] [phone] Business () In 3 days 2025 Comments: Call Dr for diagnosis based follow up DIAGNOSIS: Abdominal contusion; Fall down steps; [facility] [id number] Patient SummaryED Patient Summary [address] [address] Patient Discharge Instructions Person Information Name: PILI PARIKH Age: 19 Years Arrival Date: 01/16/2025 17:51:31 Discharge Diagnosis: Abdominal contusion; Fall down steps; Knee contusion Primary Care Physician: MODESTA CHAND CNP Provider Information Primary Provider: August Bermudez M.D. Advanced Searchlight Operator:Rashaad Albrecht PA-C The exam and treatment you received in the Emergency Department were for an urgent problem and are not intended as complete care. It is important that you follow up with a doctor, nurse practitioner,or physician???s executive assistant for ongoing care. If your symptoms become worse or you do not improve asexpected and you are unable to reach your usual health care provider, you should return to the Emergency Department. We are available 24 hours a day. PILI PARIKH has been given the following list of patient education materials, prescriptions andfollow-up instructions: Follow-up Instructions: With: Address: When: MODESTA CHAND [address] [place] [address] [place] [address] [phone] Business (1) In 3 days 2025 Comments: Call Dr for diagnosis based follow up In the event that this physician does not participate in your insurance network, please consult with your insurance company to find a nearby participating provider. Patient Education Materials: RICE Therapy for Routine Care of Injuries; Contusion; Fall Prevention in the Home, Adult, Ilbu-jn-Thbr A MESSAGE TO ALL PATIENTS REGARDING OPIOIDS PRESCRIPTION OPIOIDS: WHAT YOU NEED TO KNOW Prescription opioids can be used to help relieve lhygmrge-aa-qmgbjo pain and are often prescribed following a [...] Administration (www.fda.gov/Drugs/ResourcesForYou). ??? Visit (more content not included)...NormalGlenbeigh HospitalEthanol on 07-10-9609Alumjlc Lvl<10Normal<=11Glenbeigh HospitalComment on above:Performed By: #### [id number] #### [facility] [address] [place] [address] [id number] By: SYSTEM SYSTEM on 74-17-7923Eqyligysu/100 WBC (Bld)0.3 %Normal0.0 - 2.0 %Remisol HemeBasophils/Leukocytes Auto (Bld) [Pure # fraction]0.0 E9/LNormal0.0 - 0.2 E9/LRemisol HemeEosinophils (Bld) [#/Vol]0.0 E9/LNormal0.0 - 0.5 E9/LRemisol HemeEosinophils/100 WBC (Bld)0.0 %Normal0.0 - 8.0 %Remisol HemeErythrocyte distribution width (RBC) [Ratio]13.7 %Zjsydi93.9 - 14.2 %Remisol HemeHematocrit (Bld) [Volume fraction]46.9 %High34.0 - 46.0 % Remisol HemeHemoglobin (Bld) [Mass/Vol]16.0 g/uDUwwxwl41.0 - 16.0 gm/dLRemisol HemeLymphocytes (Bld) [#/Vol]1.4 E9/LNormal1.0 - 4.0 E9/LRemisol Heme Lymphocytes/100 WBC (Bld)11.6 %Low14.0 - 50.0 %Remisol HemeMCH (RBC) [Entitic mass]28.8 mvSfxbbr08.0 - 34.0 pgRemisol HemeMCHC (RBC) [Mass/Vol]34.1 g/dLNormal 31.4 - 36.0 gm/dLRemisol HemeMCV (RBC) [Entitic vol]84.3 yDUwkujl69.0 - 100.0 fL Remisol HemeMonocytes (Bld) [#/Vol]0.6 E9/LNormal0.2 - 1.0 E9/LRemisol Heme Monocytes/100 WBC (Bld)4.7 %Normal4.0 - 14.0 %Remisol HemeNeutrophils (Bld) [#/Vol]10.0 E9/LHigh2.0 - 7.5 E9/LRemisol HemeNeutrophils/100 WBC (Bld)83.4 % High36.0 - 75.0 %Remisol HemePlatelet mean volume (Bld) [Entitic vol]8.9 fL Normal6.4 - 10.8 fLRemisol HemePlatelets (Bld) [#/Vol]300.0 E9/LDqphlw254.0 - 500.0 E9/LRemisol HemeRBC (Bld) [#/Vol]5.6 E12/LNormal4.3 - 5.9 E12/LRemisol HemeWBC corrected for nucl RBC Auto (Bld) [#/Vol]12.0 E9/LHigh4.0 - 11.0 E9/L Remisol HemeHep Func Panelon 35-73-9203Mlxfpmq [Mass/Vol]5.5 g/dLHigh3.3-5.0 Glenbeigh HospitalComment on above:Performed By: #### [id number] #### [facility] [address] [place], [place] [address]Rgabteb/Globulin (S) [Mass conc ratio]1.8Mttynp5.1-2.2FSelect Medical Specialty Hospital - Cincinnati NorthComment on above:Performed By: #### [id number] #### [facility] [address] [place], [place] [address]AKX [Catalytic activity/Vol]71 Int._Unit/VTcmoqx70-24VvpvdoGlenbeigh HospitalComment on above:Performed By: #### [id number] #### [facility] [address] [place] [address]LMD No additional P-5'-P [Catalytic activity/Vol]42 Int._Unit/L Normal6-46Glenbeigh HospitalComment on above:Performed By: #### [id number] #### [facility] [address] [place] [address]TPP [Catalytic activity/Vol]19 Int._Unit/LNormal5-43Glenbeigh HospitalComment on above:Performed By: #### [id number] #### [facility] [address] [place], [place] [address]Zrgeejicu [Mass/Vol]1.0 mg/dLNormal0.0-1.1FSelect Medical Specialty Hospital - Cincinnati NorthComment on above:Performed By: #### [id number] #### [facility] [address] [place] [address]Phveaaozf.direct [Mass/Vol]0.2 mg/dLNormal0.0-0.4FSelect Medical Specialty Hospital - Cincinnati NorthComment on above:Performed By: #### [id number] #### [facility] [address] [place], [place] [address]Shbzazlwm.indirect [Mass or moles/Vol]0.8 mg/dLNormal0.1-0.9 [facility]igh HospitalComment on above:Performed By: #### [id number] #### [facility] [address] [place], [place] [address]Fbwlwiow (S) [Mass/Vol]3.6 g/dLNormal1.4-4.0Glenbeigh HospitalComment on above:Performed By: #### [id number] #### [facility] [address] [place], [place] [address]Ducffgy [Mass/Vol]9.1 g/dLHigh6.0-7.8Glenbeigh HospitalComment on above:Performed By: #### [id number] #### [facility] [address] [place] [address]Mgmymr Acidon 56-83-0999Gwdahh Acid Lvl1.6 mmol/LNormal0.5-2.2 Glen[facility]igh HospitalComment on above:Performed By: #### [id number] #### [facility] [address] [place], [place] [address]Ofenda Levelon 95-63-8757Bbgbzo [Catalytic activity/Vol]8 U/L Hsx69-15EpuchvGlenbeigh HospitalComment on above:Performed By: #### [id number] #### [facility] [address] [place], [place] [address]DE & PTTon 71-19-8849gABR Coag (PPP) [Time]23.1 second(s)Low 25.1-36.5FSelect Medical Specialty Hospital - Cincinnati NorthComment on above:Result Comment: Parameter 15 days - [...] the same coagulation reagent and instrumentation as [facility]. Currently there are no coagulation studies available worldwide for children to 14 days, andno normal ranges. Heparin therapeutic range (represented by Anti-Factor Xa activity of 0.2 - 0.4 U/mL) corresponds to PTT of 56.6 - 109.0 sec.Performed By: #### [id number] #### [facility] [address] [place], [place] [address]UDX Coag (PPP) [Relative time]1.10 {INR}Invalid Interpretation CodeGlenbeigh HospitalComment on above:Result Comment: INR results are specifically intended to assess patients stabilized on long-term Anticoagulation therapy suggested INR???s ???Less Intensive Anticoagulation??? 2.0 ??? 3.0 Conventional Range 3.0 ??? 4.5Performed By: #### [id number] #### [facility] [address] [place], [place] [address]BZ Coag (PPP) [Time]12.3 second(s)Normal9.4-12.5Fisher [facility]eger InstituteComment on above:Result Comment: 15 days - 4 [...] the same coagulation reagent and instrumentation as [facility]. Currently there are no coagulation studies available worldwide for children to 14 days, andno normal ranges.Performed By: #### [id number] #### [facility] [address] [place], [place] [address]Qic-Nftuhkd Noteon 02-52-0682Tos-Arrival NotePre-Arrival Note Pre-Arrival Summary Name: ruben Current Date: 01/16/2025 17:51:59 EST Gender: Female Date of : Age: 19 Pre-Arrival Type: EMS ETA: 01/16/2025 18:12:00 EST Primary Care Physician: Presenting Problem: fall Pre-Arrival User: Referring Source: Location: Completion Date/Time: 01/16/2025 17:42:00 [facility] Emergency Department Pre-Hospital Report Form Vital Signs: Pre-Hospital Report: Treatment in Route: Response to Treatment: Misc. Issues:NormalGeorgetown Behavioral HospitalEROLOGYOrdered By: Ghazal Morrell on 95-97-1756Piel HCG ( test) QlNegative (01/16/25 7:26 PM)[facility] Man SeroTroponinon 12-09-4639Jlsusufe HS3.40 pg/mL Low10.10-27.10Glenbeigh HospitalComment on above:Result Comment: The 95% CI (Confidence Interval) PPV (Positive Predictive Value) for myocardial infa rction in females is 38 pg/mL, in males 51 pg/mL. The results should be used in conjunction with clinical conditions of myocardial infarction. (Access High Sensitivity Troponin I Instructions For Use, Sugar [place], June 2018)Performed By: #### [id number] #### [facility] [address] [place], [place] [address]uOTRwt 52-05-0036mKOV08 mL/min/1.73 o3Pogoil>=59Glenbeigh HospitalComment on above:Performed By: #### [id number] #### [facility] [address] [place], [place] [address]Bohvmkl aminotransferase [Enzymatic activity/volume] in Serum or PlasmaOrdered By: Rd Brown on 89-77-0607CKB [Catalytic activity/Vol] Alanine aminotransferase [Enzymatic activity/volume] in Serum or Plasma7 [facility] City HospitalAlbumin [Mass/volume] in Serum or Plasma by Bromocresol green (BCG) dye binding methoOrdered By: Rd Brown on 10-28-2024 Albumin BCG dye [Mass/Vol]Albumin [Mass/volume] in Serum or Plasma by Bromocresol green (BCG) dye binding metho3.5-5.7FKettering Health MiamisburgAlkaline phosphatase [Enzymatic activity/volume] in Serum or PlasmaOrdered By: Rd Brown on 60-20-0325TNR [Catalytic activity/Vol]Alkaline phosphatase [Enzymatic activity/volume] in Serum or Yjivhm36-068UqjfxujaiZanesville City HospitalAmphetamine Screen Ql (U)Ordered By: Rd Brown on 10-28-2024 Amphetamines Ql (U)Amphetamines screenNegativeZanesville City Hospital Appearance of UrineOrdered By: dR Brown on 31-59-7068Juslmhziex (U)Urine appearanceAbnormalClearZanesville City HospitalAspartate aminotransferase [Enzymatic activity/volume] in Serum or PlasmaOrdered By: Rd Brown on 38-82-6451SCB [Catalytic activity/Vol]Aspartate aminotransferase [Enzymatic activity/volume] in Serum or Pyuimc34-32NenudrurfZanesville City HospitalBacteria [Presence] in Urine by AutomatedOrdered By: Rd Brown on 10-39-1378Nqdynxnu Auto Ql (U)Bacteria [Presence] in Urine by AutomatedHighNone SeenZanesville City HospitalBarbiturates [Presence] in Urine by Screen methodOrdered By: Rd Brown on 53-97-6971Umwesueceuwt Screen Ql (U) Barbiturates [Presence] in Urine by Screen methodNegMary Rutan HospitalBasic Metabolic Panelon 95-35-8627Wfhuh gap [Moles/Vol]19.5 mmol/L High6.0-15.0The [facility] Physician GroupComment on above:Performed By: #### PAP [id number], GCCHLAMTRI #### [facility] , #### OBUDS #### [facility] [address] [place] [address] USACalcium [Mass/Vol]10.4 mg/dLHigh8.6-10.3The [facility] Physician GroupComment on above:Performed By: #### PAP [id number], GCCHLAMTRI #### [facility] , #### OBUDS #### [facility] [address] [place] [address] USAChloride [Moles/Vol]94 mmol/XQxu62-613Mzj [facility] Physician GroupComment on above:Performed By: #### PAP [id number], GCCHLAMTRI #### [facility] , #### OBUDS #### [facility] [address] [place] [address] USACO2 [Moles/Vol]26.3 mmol/TRmlpep95.0-31.0The [facility] Physician GroupComment on above:Performed By: #### PAP [id number], GCCHLAMTRI #### [facility] , #### OBUDS #### [facility] [address] [place] [address] USACreatinine [Mass/Vol]0.91 mg/dLNormal0.60-1.20The [facility] Physician GroupComment on above:Performed By: #### PAP [id number], GCCHLAMTRI #### [facility] , #### OBUDS #### [facility] [address] [place] [address] USACreatinine Clr Calc Ujbfjgjl131.62NormalThe [facility] Physician GroupComment on above:Performed By: #### PAP [id number], GCCHLAMTRI #### [facility] , #### OBUDS #### [facility] [address] [place] [address] USAGFR/1.73 sq M.predicted MDRD (S/P/Bld) [Vol rate/Area] mL/min/{1.73_m2}NormalThe [facility] Physician GroupComment on above:Performed By: #### PAP [id number], GCCHLAMTRI #### [facility] , #### OBUDS #### [place] [address] USAGlucose [Mass/Vol]91 mg/oAOxbzfh74-891Cjg [facility] Physician GroupComment on above:Result Comment: Random Glucose Reference Range is dependent on time and content of last meal. Glucose of more than 200 mg/dL in a nonstressed, ambulatory subject supports the diagnosis of Diabetes Mellitus. ADA recommended reference rangePerformed By: #### PAP [id number], GCCHLAMTRI #### [facility] , #### OBUDS #### [place] [address] USAPotassium [Moles/Vol]2.8 mmol/LOff scale low3.5-5.1The [facility] Physician GroupComment on above:Result Comment: Critical Result Called to and read back by: MATT BUSH at: 10/28/2024 19:29:56 by:[id number] By: #### PAP [id number], GCCHLAMTRI #### [facility] , #### OBUDS #### [place] [address] USASodium [Moles/Vol]137 mmol/HJufeif462-932Vet [facility] Physician GroupComment on above:Performed By: #### PAP [id number], GCCHLAMTRI #### [facility] , #### OBUDS #### [facility] [address] [place] [address] USAUrea nitrogen [Mass/Vol]21 mg/dLNormal7-25The [facility] Physician GroupComment on above:Performed By: #### PAP [id number], GCCHLAMTRI #### [facility] , #### OBUDS #### [place] [address] USABasophils Auto (Bld) [#/Vol]Ordered By: Rd Brown on 40-16-4267Pdmolutke (Bld) [#/Vol]Automated basophil count0.0-0.2FKettering Health MiamisburgBasophils/100 WBC Auto (Bld)Ordered By: Rd Brown on 60-57-1477Zsamkpper/100 WBC (Bld)Automated basophil %.Z[facility] City HospitalBenzodiazepines Screen Ql (U)Ordered By: Rd Brown on 10-28-2024 Benzodiazepines Ql (U)Benzodiazepines [Presence] in Urine by Screen method NegativeZanesville City HospitalBenzoylecgonine [Presence] in Urine by Screen methodOrdered By: Rd Brown on 12-16-9609Xayrixjmevoylui Screen Ql (U) Benzoylecgonine [Presence] in Urine by Screen methodNegativeZanesville City HospitalBilirubin Test strip Ql (U)Ordered By: Rd Brown on 10-28-2024 Bilirubin Ql (U)Bilirubin.total [Presence] in Urine by Test stripNegative [facility] City HospitalBilirubin.direct [Mass/volume] in Serum or PlasmaOrdered By: Rd Brown on 80-22-3587Oqvodvoun.direct [Mass/Vol] Bilirubin.direct [Mass/volume] in Serum or PlasmaHigh0.03-0.18FKettering Health MiamisburgBilirubin.total [Mass/volume] in Serum or PlasmaOrdered By: Rd Brown 77-55-9391Ubtgjllfc [Mass/Vol]Bilirubin.total [Mass/volume] in Serum or PlasmaHigh0.3-1.0[facility] City HospitalCalcium [Mass/volume] in Serum or PlasmaOrdered By: Rd Brown 69-90-3075Hrjjasu [Mass/Vol] Calcium [Mass/volume] in Serum or PlasmaHigh8.6-10.3FKettering Health MiamisburgCannabinoids [Presence] in Urine by Screen methodOrdered By: Rd Brown on 35-20-5409Clkdrgopzxsb Screen Ql (U)Cannabinoids [Presence] in Urine by Screen methodHighNegativeZanesville City HospitalComment on above:These are unconfirmed results and should not be used for legal purposes. Drug Cut-Off Concentration: AMPH 1000 ng/mL NIKOLAS 200 ng/mL SHRAVAN 200 ng/mL COCM 300 ng/mL OP 300 ng/mL PCP 25 ng/mL THC 20 ng/mLCarbon dioxide, total [Moles/volume] in Serum or PlasmaOrdered By: Rd Brown on 80-05-8117CA8 [Moles/Vol]Carbon dioxide, total [Moles/volume] in Serum or Znilfe90.0-31.0[facility] City HospitalChloride [Moles/volume] in Serum or PlasmaOrdered By: Rd Brown on 43-30-6201Fzbdityb [Moles/Vol]Chloride [Moles/volume] in Serum or PlasmaLow 98-107Z[facility] City HospitalColor Auto (U)Ordered By: Rd Brown on 36-90-5149Lngbz (U)Color of Urine by AutoAbnormalYellowZanesville City HospitalComplete Blood Count Auto Diffon 79-90-2628Nvcdxgend (Bld) [#/Vol] 0.1 10*3/uLNormal0.0-0.2The [facility] Physician GroupComment on above:Result Comment: PERFORMED BY: [place] [address] PATHOLOGIST GRANULAR OPERATOR IDANIA GODOY M.D.Performed By: #### PAP [id number], GCCHLAMTRI #### [facility] , #### OBUDS #### [facility] [address] [place] [address] USABasophils/100 WBC (Bld)0.7 %Normal.The [facility] Physician GroupComment on above:Performed By: #### PAP [id number], GCCHLAMTRI #### [facility] , #### OBUDS #### [facility] [address] [place] [address] USAEosinophils (Bld) [#/Vol]0.1 10*3/uLNormal0.0-0.45The [facility] Physician GroupComment on above:Performed By: #### PAP 078396, GCCHLAMTRI #### [facility] , #### OBUDS #### [place] [address] USAEosinophils/100 WBC (Bld)0.6 %Normal.The [facility] Physician GroupComment on above:Performed By: #### PAP 730602, GCCHLAMTRI #### [facility] , #### OBUDS #### [place] [address] USAErythrocyte distribution width (RBC) [Ratio]13.4 %Normal 11.9-15.3The [facility] Physician GroupComment on above:Performed By: #### PAP 140897, GCCHLAMTRI #### [facility] , #### OBUDS #### [place] [address] USAHematocrit (Bld) [Volume fraction]49.2 %High34.0-46.4The [facility] Physician GroupComment on above:Performed By: #### PAP 540543, GCCHLAMTRI #### [facility] , #### OBUDS #### [place] [address] USAHemoglobin (Bld) [Mass/Vol]16.5 g/iXTjeo17.8-15.4The [facility] Physician GroupComment on above:Performed By: #### PAP 449808, GCCHLAMTRI #### [facility] , #### OBUDS #### [place] [address] USALymphocytes (Bld) [#/Vol]2.9 10*3/uLNormal1.00-4.8The [facility] Physician GroupComment on above:Performed By: #### PAP 114573, GCCHLAMTRI #### [facility] , #### OBUDS #### [place] [address] USALymphocytes/100 WBC (Bld)14.7 %Normal.The [facility] Physician GroupComment on above:Performed By: #### PAP 734569, GCCHLAMTRI #### [facility] , #### OBUDS #### [address]H (RBC) [Entitic mass]28.7 njXpohwv53.7-34.3The [facility] Physician GroupComment on above:Performed By: #### PAP 420039, GCCHLAMTRI #### [facility] , #### OBUDS #### [facility] [address] [place], [place] [address]V (RBC) [Entitic vol]85.7 yZIveavf98-008Kro [facility] Physician GroupComment on above:Performed By: #### PAP 326662, GCCHLAMTRI #### [facility] , #### OBUDS #### [facility] [address] [place] [address] USAMean Corpuscular HGB Conc33.5 g/rGXicllu03.0-35.0The [facility] Physician GroupComment on above:Performed By: #### PAP 253919, GCCHLAMTRI #### [facility] , #### OBUDS #### [facility] [address] [place] [address] USAMonocytes (Bld) [#/Vol]1.2 10*3/uLHigh0.0-0.8The [facility] Physician GroupComment on above:Performed By: #### PAP 851766, GCCHLAMTRI #### [facility] , #### OBUDS #### [facility] [address] [place] [address] USAMonocytes/100 WBC (Bld)16.96 %Normal0.00-20.00The [facility] Physician GroupComment on above:Performed By: #### PAP 896091, GCCHLAMTRI #### [facility] , #### OBUDS #### [place] [address] USAMonocytes/100 WBC (Bld)5.9 %Normal.The [facility] Physician GroupComment on above:Performed By: #### PAP 203907, GCCHLAMTRI #### [facility] , #### OBUDS #### [facility] [address] [place] [address] USANeutrophils (Bld) [#/Vol]15.5 10*3/uLHigh1.8-7.7The [facility] Physician GroupComment on above:Performed By: #### PAP [id number], GCCHLAMTRI #### [facility] , #### OBUDS #### [place] [address] USANeutrophils/100 WBC (Bld)78.1 %Normal.The [facility] Physician GroupComment on above:Performed By: #### PAP 846214, GCCHLAMTRI #### [facility] , #### OBUDS #### [place] [address] USANRBC%0.1 /100{WBC}Normal0-0.5The [facility] Group Comment on above:Performed By: #### PAP 834872, GCCHLAMTRI #### [facility] , #### OBUDS #### [facility] [address] [place] [address] USAPlatelet mean volume (Bld) [Entitic vol]8.4 fLNormal 6.3-10.7The [facility] Physician GroupComment on above:Performed By: #### PAP [id number], GCCHLAMTRI #### [facility] , #### OBUDS #### [facility] [address] [place] [address] USAPlatelets (Bld) [#/Vol]333 10*3/fNXlwtjt695-660Ldo [facility] Physician GroupComment on above:Performed By: #### PAP 580562, GCCHLAMTRI #### [facility] , #### OBUDS #### [facility] [address] [place] [address] USARBC (Bld) [#/Vol]5.74 10*6/uLHigh3.60-5.00The [facility] Physician GroupComment on above:Performed By: #### PAP 518110, GCCHLAMTRI #### [facility] , #### OBUDS #### [facility] [address] [place] [address] USAWBC (Bld) [#/Vol]19.8 10*3/uLHigh3.8-11.6The [facility] Physician GroupComment on above:Performed By: #### PAP 490674, GCCHLAMTRI #### [facility] , #### OBUDS #### [place] [address] USACreatinine [Mass/volume] in Serum or PlasmaOrdered By: Rd Brown on 46-67-8555Xjpgxyjteu [Mass/Vol]Creatinine [Mass/volume] in Serum or Plasma0.60-1.20[facility] City HospitalDipstick and Microscopicon 96-12-5310Ftfiewcliy (U)TurbidCritically abnormalClearThe [facility] Physician GroupComment on above:Order Comment: Name Collection Type:: Clean-Voided MidstreamPerformed By: #### ADDONUAPLUS, CUU, UHCG #### [place] [address] USABacteria,Urine1+HighNone SeenThe [facility] Physician Group Comment on above:Order Comment: Name Collection Type:: Clean-Voided Midstream Performed By: #### ADDONUAPLUS, CUU, UHCG #### [place] [address] USABilirubin,UrineNegativeNormalNegativeMemorial Hospital Pembroke Physician GroupComment on above:Order Comment: Name Collection Type:: Clean- Voided MidstreamPerformed By: #### ADDONUAPLUS, CUU, UHCG #### [facility] [address] [place] [address] USAColor (U)Light-OrangeCritically abnormalYellowMemorial Hospital Pembroke Physician GroupComment on above:Order Comment: Name Collection Type:: Clean-Voided MidstreamPerformed By: #### ADDONUAPLUS, CUU, UHCG #### [facility] [address] [place] [address] USAGlucose Ql (U)NormalNormalNormalThNell J. Redfield Memorial Hospital Physician GroupComment on above:Order Comment: Name Collection Type:: Clean-Voided MidstreamPerformed By: #### ADDONUAPLUS, CUU, UHCG #### [facility] [address] [place] [address] USAHyaline Casts,Urine9 [LPF]High0-8The [facility] Physician GroupComment on above:Order Comment: Name Collection Type:: Clean-Voided MidstreamPerformed By: #### ADDONUAPLUS, CUU, UHCG #### [facility] [address] [place] [address] USAKetones Ql (U)3+HighNegativeMemorial Hospital Pembroke Physician Group Comment on above:Order Comment: Name Collection Type:: Clean-Voided Midstream Performed By: #### ADDONUAPLUS, CUU, UHCG #### [facility] [address] [place], [place] [id number] USALeukocyte esterase Test strip Ql (U)3+HighNegativeMemorial Hospital Pembroke Physician GroupComment on above:Order Comment: Name Collection Type:: Clean-Voided MidstreamPerformed By: #### ADDONUAPLUS, CUU, UHCG #### [facility] [address] [place] [address] USAMucus,Urine4+Critically abnormalMemorial Hospital Pembroke Physician GroupComment on above:Order Comment: Name Collection Type:: Clean-Voided MidstreamPerformed By: #### ADDONUAPLUS, CUU, UHCG #### [place] [address] USANitrite,UrineNegativeNormalNegativeThe [facility] Physician GroupComment on above:Order Comment: Name Collection Type:: Clean-Voided MidstreamPerformed By: #### ADDONUAPLUS, CUU, UHCG #### [place] [address] USAOccult Blood,Urine3+HighNegativeThe [facility] Physician GroupComment on above:Order Comment: Name Collection Type:: Clean-Voided MidstreamPerformed By: #### ADDONUAPLUS, CUU, UHCG #### [place] [address] USApH (U)8.0 [pH]Normal5.0-9.0The [facility] Comment on above:Order Comment: Name Collection Type:: Clean-Voided Midstream Performed By: #### ADDONUAPLUS, CUU, UHCG #### [place] [address] USAProtein (U) [Mass/Vol]100 mg/dLHighNegativeThe [facility] Physician GroupComment on above:Order Comment: Name Collection Type:: Clean- Voided MidstreamPerformed By: #### ADDONUAPLUS, CUU, UHCG #### [place] [address] USARBC,UrineInnumerableHigh0-4The [facility] Comment on above:Order Comment: Name Collection Type:: Clean-Voided Midstream Performed By: #### ADDONUAPLUS, CUU, UHCG #### [place] [address] USASpecificy Carlock,Urine1.822Ovcjuq1.001-1.030The [facility] Physician GroupComment on above:Order Comment: Name Collection Type:: Clean- Voided MidstreamPerformed By: #### ADDONUAPLUS, CUU, UHCG #### [place] [address] USASquamous Epithelial Cell,Urine1 [HPF]Normal0-2The [facility] Physician GroupComment on above:Order Comment: Name Collection Type:: Clean-Voided MidstreamPerformed By: #### ADDONUAPLUS, CUU, UHCG #### [facility] [address] [place] [address] USAUrobilinogen,Urine6 mg/dLHighNormalThNell J. Redfield [facility] Hospital Physician GroupComment on above:Order Comment: Name Collection Type:: Clean-Voided MidstreamPerformed By: #### ADDONUAPLUS, CUU, UHCG #### [place] [address] USAWBC,Urine50 [HPF]High0-4The [facility] Comment on above:Order Comment: Name Collection Type:: Clean-Voided Midstream Performed By: #### ADDONUAPLUS, CUU, UHCG #### [place] [address] USADrug Screen,Urineon 43-56-1437Jmdeqtsswbo Screen,Urine NegativeNormalNegativeThe [facility] Physician GroupComment on above:Performed By: #### PAP [id number], GCCHLAMTRI #### [facility] , #### OBUDS #### [facility] [address] [place] [address] USABarbiturate Screen,UrineNegativeNormalNegativeThe [facility] Physician GroupComment on above:Performed By: #### PAP [id number], GCCHLAMTRI #### [facility] , #### OBUDS #### [facility] [address] [place], [place] [id number] USABenzodiazepines Screen,UrineNegativeNormalNegativeThe [facility] Physician GroupComment on above:Performed By: #### PAP [id number], GCCHLAMTRI #### [facility] , #### OBUDS #### [facility] [address] [place] [address] USACannabinoid Screen,UrinePositiveHighNegativeThe [facility] Physician GroupComment on above:Result Comment: These are unconfirmed results and should not be used for legal purposes. Drug Cut-Off Concentration: AMPH 1000 ng/mL NIKOLAS 200 ng/mL SHRAVAN 200 ng/mL COCM 300 ng/mL OP 300 ng/mL PCP 25 ng/mL THC 20 ng/mL PERFORMED BY: [place] [address] PATHOLOGIST GRANULAR OPERATOR IDANIA GODOY M.D.Performed By: #### PAP [id number], GCCHLAMTRI #### [facility] , #### OBUDS #### [place] [address] USACocaine Screen,UrineNegativeNormalNegativeThe [facility] Physician GroupComment on above:Performed By: #### PAP [id number], GCCHLAMTRI #### [facility] , #### OBUDS #### [place] [address] USAOpiate Screen,UrineNegativeNormalNegativeThe [facility] Physician GroupComment on above:Performed By: #### PAP [id number], GCCHLAMTRI #### [facility] , #### OBUDS #### [place] [address] USAPhencyclidine Screen,UrineNegativeNormalNegativeThe [facility] Physician GroupComment on above:Performed By: #### PAP [id number], GCCHLAMTRI #### [facility] , #### OBUDS #### [place] [address] USAECG 12 lead ECGon 91-60-3141TCQ 12 lead ECGOHIO [facility] [place] [address] [place] [address] Electrocardiograph Report Signed Patient: Pili Parikh MR#: [id number] 1526 : 2005 Acct:[id number] Age/Sex: 19 / F ADM Date: 10/28/24 Loc: ER Room: Type: [facility] ER Attending Dr: Ordering Provider: [...] sinus rhythm Confirmed by Robert BOLANOS DO ([id number]) on 10/28/2024 9:48:18 PM Referred By: Electronically Signed By: Robert BOLANOS DO Transcribed By: MUS Signed By Robert Bolanos DO 1 12/29/23 2148[facility] Physician GroupEosinophils Auto (Bld) [#/Vol] Ordered By: Rd Brown on 87-96-2992Xjdrgxshcir (Bld) [#/Vol]Automated eosinophil count0.0-0.45[facility] City HospitalEosinophils/100 WBC Auto (Bld)Ordered By: Rd Brown on 57-84-9999Bvejdtuskiw/100 WBC (Bld) Automated eosinophil %.[facility] City HospitalEpithelial cells.squamous [#/area] in Urine sediment by Automated countOrdered By: Rd Brown on 55-85-2470Xlzvhsxfzt cells.squamous Auto (Urine sed) [#/Area]Epithelial cells.squamous [#/area] in Urine sediment by Automated count0-2FKettering Health MiamisburgErythrocyte distribution width Auto (RBC) [Ratio]Ordered By: Rd Brown on 18-87-6950Cpccqbluqpl distribution width (RBC) [Ratio] Erythrocyte distribution width [Ratio] by Automated count11.9-15.3FKettering Health MiamisburgErythrocytes [#/area] in Urine sediment by Automated countOrdered By: Rd Brown on 99-23-9805SUF Auto (Urine sed) [#/Area] Erythrocytes [#/area] in Urine sediment by Automated countHigh04FKettering Health MiamisburgGlobulin Calc (S) [Mass/Vol]Ordered By: Rd Brown on 50-63-3600Nsffwpsy (S) [Mass/Vol]Serum globulin measurement by calculation (mass/volume)[facility] HospitalGlucose [Mass/volume] in Serum or PlasmaOrdered By: Rd Brown on 77-67-1860Wxxdpty [Mass/Vol]Glucose [Mass/volume] in Serum or Dgheup02-128RiudfqkvrZanesville City HospitalComment on above:ADA recommended reference rangeRandom Glucose Reference Range is dependent on time and content of last meal. Glucose of more than 200 mg/dL in a nonstressed, ambulatory subject supports the diagnosisof Diabetes Mellitus. Glucose [Mass/volume] in Urine by Test stripOrdered By: Rd Brown on 72-40-4980Wgfqooh Test strip (U) [Mass/Vol]Glucose [Mass/volume] in Urine by Test stripNormalZanesville City HospitalHC ( test) IA.rapid Ql (U)Ordered By: Rd Brown on 89-47-6391BSR ( test) Ql (U)Urine human chorionic gonadotropin (hCG) detection by immunoassayZanesville City HospitalHC,Urineon 65-77-3116Wtwi HCG ( test) Ql (U)Negative NormalThe [facility] Physician GroupComment on above:Order Comment: Name Collection Type:: Clean-Voided MidstreamResult Comment: PERFORMED BY: [facility] [address] [place] [address] PATHOLOGIST GRANULAR OPERATOR IDANIA GODOY M.D.Performed By: #### AL[facility]ZA RED [facility] #### [facility] [address] [place] [address] USAHematocrit Auto (Bld) [Volume fraction]Ordered By: Rd Brown on 07-75-7169Vhyyrgxlom (Bld) [Volume fraction]Hematocrit [Volume Fraction] of Blood by Automated hjczfRowu63.0-46.4FKettering Health MiamisburgHemoglobin Test strip Ql (U)Ordered By: Rd Brown on 10-28-2024 Hemoglobin Ql (U)Hemoglobin [Presence] in Urine by Test stripHighNegative [facility] HospitalHemoglobin [Mass/volume] in BloodOrdered By: Rd Brown on 59-12-3025Gwsdnrlple (Bld) [Mass/Vol]Hemoglobin [Mass/volume] in VtyaeZyac43.8-15.4FKettering Health MiamisburgHepatic Panelon 10-28-2024 Albumin [Mass/Vol]5.4 g/dLNormal3.5-5.7The [facility] Physician GroupComment on above:Performed By: #### PAP [id number], GCCHLAMTRI #### [facility] , #### OBUDS #### [facility] [address] [place] [address] USAAlbumin/Globulin [Mass ratio]1.5 {ratio}NormalThe [facility] Physician GroupComment on above:Performed By: #### PAP [id number], GCCHLAMTRI #### [facility] , #### OBUDS #### [place] [address] USAALP [Catalytic activity/Vol]78 U/QFbhvfl58-787Kse [facility] Physician GroupComment on above:Performed By: #### PAP [id number], GCCHLAMTRI #### [facility] , #### OBUDS #### [facility] [address] [place] [address] USAALT [Catalytic activity/Vol]48 U/LNormal7-52The [facility] Physician GroupComment on above:Performed By: #### PAP [id number], GCCHLAMTRI #### [facility] , #### OBUDS #### [facility] [address] [place] [address] USAAST [Catalytic activity/Vol]30 U/YArzcem12-93Nco [facility] Physician GroupComment on above:Performed By: #### PAP [id number], GCCHLAMTRI #### [facility] , #### OBUDS #### [facility] [address] [place] [address] USABilirubin [Mass/Vol]1.1 mg/dLHigh0.3-1.0The [facility] Physician GroupComment on above:Performed By: #### PAP 880659, GCCHLAMTRI #### [facility] , #### OBUDS #### [place] [address] USABilirubin,Indirect0.9 mg/dLNoOn license of [facility] Physician GroupComment on above:Performed By: #### PAP [id number], GCCHLAMTRI #### [facility] , #### OBUDS #### [place] [address] USABilirubin.indirect [Mass/Vol]0.20 mg/dLHigh0.03-0.18The [facility] Physician GroupComment on above:Performed By: #### PAP [id number], GCCHLAMTRI #### [facility] , #### OBUDS #### [place] [address] USAGlobulin (S) [Mass/Vol]3.5 g/dLNormLima City Hospitale [facility] Physician GroupComment on above:Performed By: #### PAP [id number], GCCHLAMTRI #### [facility] , #### OBUDS #### [place] [address] USAProtein [Mass/Vol]8.9 g/dLNormal6.4-8.9The [facility] Physician GroupComment on above:Performed By: #### PAP [id number], GCCHLAMTRI #### [facility] , #### OBUDS #### [place] [address] USAHyaline casts [#/area] in Urine sediment by Automated countOrdered By: Rd Brown on 92-38-9042Hatbwms casts Auto (Urine sed) [#/Area]Hyaline casts [#/area] in Urine sediment by Automated countHigh0-8 [facility] HospitalKetones Test strip Ql (U)Ordered By: Rd Brown on 10-20-2173Hcidsur Ql (U)Ketones [Presence] in Urine by Test stripAdams County Regional Medical Center CenterLeukocyte esterase [Presence] in Urine by Test stripOrdered By: Rd Brown on 86-45-8497Lkaqxpjmc esterase Test strip Ql (U)Leukocyte esterase [Presence] in Urine by Test stripHighNegativeZanesville City HospitalLeukocytes [#/area] in Urine sediment by Automated count Ordered By: Rd Brown on 43-81-4294XPP Auto (Urine sed) [#/Area]Leukocytes [#/area] in Urine sediment by Automated countHigh0-4FKettering Health MiamisburgLeukocytes [#/volume] corrected for nucleated erythrocytes in Blood by Automated counOrdered By: Rd Brown on 98-39-7146MQM corrected for nucl RBC Auto (Bld) [#/Vol]Leukocytes [#/volume] corrected for nucleated erythrocytes in Blood by Automated counHigh3.8-11.6FKettering Health MiamisburgLipaseon 97-48-1176Ubaoif [Catalytic activity/Vol]19.0 U/WZhwgdq77.0-82.0The [facility] Physician GroupComment on above:Result Comment: PERFORMED BY: [place] [address] PATHOLOGIST GRANULAR OPERATOR IDANIA GODOY M.D.Performed By: #### PAP [id number], GCCHLAMTRI #### [facility] , #### OBUDS #### [place] [address] USALipase [Enzymatic activity/volume] in Serum or Plasma Ordered By: Rd Brown on 77-04-6177Dnrxxa [Catalytic activity/Vol]Lipase [Enzymatic activity/volume] in Serum or Elsfak73.0-82.0[facility] City HospitalLymphocytes Auto (Bld) [#/Vol]Ordered By: Rd Brown on 07-83-3182Ohupthpcqmr (Bld) [#/Vol]Lymphocytes [#/volume] in Blood by Automated count1.00-4.8[facility] City HospitalLymphocytes/100 WBC Auto (Bld) Ordered By: Rd Brown on 13-84-9306Furzazcmdwz/100 WBC (Bld)Lymphocytes/100 leukocytes in Blood by Automated count.[facility] HospitalH Auto (RBC) [Entitic mass]Ordered By: Rd Brown on 34-42-4429RPU (RBC) [Entitic mass]MCH [Entitic mass] by Automated count24.7-34.3FDetwiler Memorial HospitalHC Auto (RBC) [Mass/Vol]Ordered By: Rd Brown on 81-80-9214LIFU (RBC) [Mass/Vol]MCHC [Mass/volume] by Automated count32.0-35.0Z[facility] City HospitalMCV Auto (RBC) [Entitic vol]Ordered By: Rd Brown on 10-28-2024 MCV (RBC) [Entitic vol]MCV [Entitic volume] by Automated -825TolczslvbZanesville City HospitalMonocyte distribution width [Entitic volume] in Blood by AutomatedOrdered By: Rd Brown on 98-40-2296Cjzieuig distribution width Auto (Bld) [Entitic vol]Monocyte distribution width [Entitic volume] in Blood by Automated0.00-20.00Z[facility] City HospitalMonocytes Auto (Bld) [#/Vol] Ordered By: Rd Brown on 12-04-0514Jvjfugmcc (Bld) [#/Vol]Automated blood monocyte countHigh0.0-0.8Z[facility] City HospitalMonocytes/100 WBC Auto (Bld)Ordered By: Rd Brown on 83-53-6851Nxomybjdg/100 WBC (Bld)Automated monocyte %.[facility] HospitalMucus [Presence] in Urine by AutomatedOrdered By: Rd Brown on 11-28-9274Cgbxv Auto Ql (U)Mucus [Presence] in Urine by AutomatedAbnormalZanesville City HospitalNeutrophils Auto (Bld) [#/Vol]Ordered By: Rd Brown on 30-04-8257Vrtogbpijap (Bld) [#/Vol] Neutrophils [#/volume] in Blood by Automated countHigh1.8-7.7FKettering Health MiamisburgNeutrophils/100 WBC Auto (Bld)Ordered By: Rd Brown on 11-91-1461Ymeuasytdgx/100 WBC (Bld)Automated neutrophil %.[facility] Medical CenterNitrite Test strip Ql (U)Ordered By: Rd Brown on 10-28-2024 Nitrite Ql (U)Nitrite [Presence] in Urine by Test stripNegativeZanesville City HospitalNo Panel InformationOrdered By: Rd Brown on 56-07-6172Jiglsfpop GFR (CKD-EPI)> 60.0 mL/MinZanesville City Hospital Pharmacy Creatinine Clearance (Yeyq871.62[facility] Nucleated erythrocytes [Presence] in Blood by Automated countOrdered By: Rd Brown on 49-79-2059Xxwfzjnpn RBC Auto Ql (Bld)Nucleated erythrocytes [Presence] in Blood by Automated count0-0.5FKettering Health MiamisburgOpiates [Presence] in Urine by Screen methodOrdered By: Rd Brown on 10-28-2024 Opiates Screen Ql (U)Opiates [Presence] in Urine by Screen methodNegative [facility] HospitalPhencyclidine Screen Ql (U)Ordered By: Rd Brown on 72-68-1438Xcrqwwckipeak Ql (U)Phencyclidine [Presence] in Urine by Screen methodNegativeZanesville City HospitalPlatelet mean volume Auto (Bld) [Entitic vol]Ordered By: Rd Brown on 43-32-1377Mrugbtzf mean volume (Bld) [Entitic vol]Platelet mean volume [Entitic volume] in Blood by Automated count6.3-10.7FKettering Health MiamisburgPlatelets Auto (Bld) [#/Vol] Ordered By: Rd Brown on 47-04-5076Llmsbxvqr (Bld) [#/Vol]Platelets [#/volume] in Blood by Automated mvvar666-167CmypdixboZanesville City Hospital Potassiumon 44-70-8831Tockmygkq [Moles/Vol]2.9 mmol/LOff scale low3.5-5.1The [facility] Physician GroupComment on above:Result Comment: Critical Result Called to and read back by: RYLAN BELL at: 10/28/2024 23:09:11 by:MO PERFORMED BY: [address] [address] PATHOLOGIST GRANULAR OPERATOR IDANIA GODOY M.D.Performed By: #### K #### [address] [place] [address] USAPotassium [Moles/volume] in Serum or PlasmaOrdered By: Rd Brown on 11-61-8572Cmrkkgzjm [Moles/Vol]Potassium [Moles/volume] in Serum or PlasmaCritically low3.5-5.1FKettering Health MiamisburgComment on above:Critical Result Called to and read back by: RYLAN BELL at: 10/28/2024 23:09:11 by:DHProtein Test strip (U) [Mass/Vol]Ordered By: Rd Brown on 34-37-8246Tpjtjuf (U) [Mass/Vol]Protein [Mass/volume] in Urine by Test stripHigh NegativeZanesville City HospitalProtein [Mass/volume] in Serum or PlasmaOrdered By: Rd Brown on 63-50-9186Eywdjyr [Mass/Vol]Protein [Mass/volume] in Serum or Plasma6.4-8.9[facility] City HospitalRBC Auto (Bld) [#/Vol]Ordered By: Rd Brown on 76-86-5041KVO (Bld) [#/Vol] Erythrocytes [#/volume] in Blood by Automated countHigh3.60-5.00[facility] Medical Centererum or plasma albumin/globulin mass ratioOrdered By: Rd Brown 60-00-0247Erkwund/Globulin [Mass ratio]Serum or plasma albumin/globulin mass ratioCincinnati VA Medical Centererum or plasma anion gap determinationOrdered By: Rd Brown 96-57-5186Dsxar gap [Moles/Vol]Serum or plasma anion gap determinationHigh6.0-15.0[facility] Centererum or plasma non-glucuronidated bilirubin measurement (mass/volume)Ordered By: Rd Brown on 37-35-6684Vulpnigtw.indirect [Mass/Vol] Serum or plasma non-glucuronidated bilirubin measurement (mass/volume)[facility] Centerodium [Moles/volume] in Serum or PlasmaOrdered By: Rd Brown on 69-25-5466Mbsbmf [Moles/Vol]Sodium [Moles/volume] in Serum or Tbwxxh365-390AtoebllsrCincinnati VA Medical Centerpecific gravity Test strip (U) [Rel density]Ordered By: Rd Brown on 49-10-9757Jcavawvi gravity (U) [Rel density]Specific gravity of Urine by Test strip1.001-1.030[facility] City HospitalUrea nitrogen [Mass/volume] in Serum or PlasmaOrdered By: Rd Brown on 33-25-7771Lkhb nitrogen [Mass/Vol]Urea nitrogen [Mass/volume] in Serum or Plasma7-25Z[facility] City HospitalUrine Cultureon 64-13-5676Jfdgdmyq identified Cx Nom (U)75,000 colonies/ml mixed bacterial skin contaminants 2 Days PERFORMED BY: [place] [address] PATHOLOGIST GRANULAR OPERATOR IDANIA GODOY M.D.NormalMemorial Hospital Pembroke Physician GroupComment on above: Performed By: #### ALIREZA RED TrinidadG #### [place] [address] USAUrine cultureOrdered By: Rd Brown on 10-28-2024 Bacteria identified Cx Nom (U)Urine cultureZanesville City Hospital Urobilinogen Test strip (U) [Mass/Vol]Ordered By: Rd Brown on 10-28-2024 Urobilinogen (U) [Mass/Vol]Urobilinogen [Mass/volume] in Urine by Test stripHigh NormalZanesville City HospitalWBC Auto (Bld) [#/Vol]Ordered By: Rd Brown on 40-71-7696AAP (Bld) [#/Vol]Leukocytes [#/volume] in Blood by Automated countHigh3.8-11.6FKettering Health MiamisburgpH Test strip (U)Ordered By: Rd Brown on 71-38-4100yR (U)pH of Urine by Test strip5.0-9.0[facility] City HospitalActivated partial thromboplastin time (aPTT) in platelet poor plasma by coagulation aOrdered By: Ania Watson on 72-79-0767pIMI Coag (PPP) [Time]24.7 sLow25.1-36.5FKettering Health MiamisburgComment on above: A hematocrit value greater than 55% may lead to inaccurate results in coagulation testing. Patientshaving hematocrit values >55% require a special collection tube for coagulation studies. Please contact the laboratory at [phone] for redraw instructions.Calcium [Mass/volume] in Serum or Plasma Ordered By: Ania Watson on 63-72-3650Wwssijf [Mass/Vol]9.6 mg/dL8.6-10.3 [facility] HospitalCarbon dioxide, total [Moles/volume] in Serum or PlasmaOrdered By: Ania Watson on 79-67-7699SI1 [Moles/Vol]18.5 mmol/LLow 21.0-31.0[facility] City HospitalChloride [Moles/volume] in Serum or PlasmaOrdered By: Ania Watson on 63-48-9385Plpeiafp [Moles/Vol]99 mmol/L 98-107Z[facility] City HospitalCreatine kinase [Enzymatic activity/volume] in Serum or PlasmaOrdered By: Ania Watson on 06-40-2071LQ [Catalytic activity/Vol]33 U/H22-448EtelspggnZanesville City HospitalCreatinine [Mass/volume] in Serum or PlasmaOrdered By: Ania Watson on 08-03-2024 Creatinine [Mass/Vol]0.61 mg/dL0.60-1.20[facility] HospitalGlucose [Mass/volume] in Serum or PlasmaOrdered By: Ania Watson on 96-25-4749Snaevta [Mass/Vol]91 mg/nQ85-359GpbpvpblpZanesville City HospitalComment on above:ADA recommended reference rangeRandom Glucose Reference Range is dependent on time and content of last meal. Glucose of more than 200 mg/dL in a nonstressed, ambulatory subject supports the diagnosisof Diabetes Mellitus.INR in Platelet poor plasma by Coagulation assayOrdered By: Ania Watson on 62-02-2797EZW Coag (PPP) [Relative time]1.2 {INR}[facility] City HospitalComment on above:INR Therapeutic Range A) Pre- [...] peptide B [Mass/Vol]Ordered By: Ania Watson on 37-62-6512Vbwsamdkrkf peptide B (Bld) [Mass/Vol]19.0 pg/mL5-100[facility] City HospitalNo Panel InformationOrdered By: Ania Watson on 64-10-0532Zdbupfguc GFR (CKD-EPI)> 60.0 mL/MinZanesville City Hospital Pharmacy Creatinine Clearance (Aoxm105.09[facility] Potassium [Moles/volume] in Serum or PlasmaOrdered By: Ania Watson on 82-77-5837Ytprucpdv [Moles/Vol]3.5 mmol/L3.5-5.1FKettering Health MiamisburgComment on above:Hemolysis is present at a level that could interfere with the result.Contact lab if redraw is requiredProthrombin time (PT)Ordered By: Ania Watson on 73-99-9849WU Coag (PPP) [Time]13.3 sHigh9.0-12.9[facility] City HospitalComment on above:A hematocrit value greater than 55% may lead to inaccurate results in coagulation testing. Patientshaving hematocrit values >55% require a special collection tube for coagulation studies. Please c ontact the laboratory at [phone] for redraw instructions.Serum or plasma anion gap determinationOrdered By: Ania Watson on 34-13-8577Fzsik gap [Moles/Vol]20.0 mmol/LHigh6.0-15.0[facility] Medical Centerodium [Moles/volume] in Serum or PlasmaOrdered By: Ania Watson on 94-59-9801Ujvkpv [Moles/Vol]134 mmol/OZhp014-427QksaliejfZanesville City HospitalTroponin I.cardiac [Mass/volume] in Serum or Plasma by Detection limit <= 0.01 ng/Ordered By: Ania Watson on 27-72-3716Yxhsospf I.cardiac DL <= 0.01 ng/mL [Mass/Vol] 7.0 pg/mL0.0-15.0[facility] City HospitalUrea nitrogen [Mass/volume] in Serum or PlasmaOrdered By: Ania Watson on 35-15-9641Ctpa nitrogen [Mass/Vol] 20 mg/dL7-25Z[facility] City HospitalB hCG Qualon 74-31-5380Snax HCG ( test) QlNegativeNormalGlenbeigh HospitalComment on above: Performed By: #### [id number] #### [facility] [address] [place], [place] [address]GTJct 28-31-7119Wnjtu gap [Moles/Vol]14 mmol/LNormal6-16Glenbeigh HospitalComment on above:Performed By: #### [id number] #### [facility] [address] [place], [place] [address]Ljagiiv [Mass/Vol]9.7 mg/dLNormal8.9-11.1FSelect Medical Specialty Hospital - Cincinnati NorthComment on above:Performed By: #### [id number] #### [facility] [address] [place], [place] [address]Plbxqxxb [Moles/Vol]102 mmol/XMroysm955-200ZvmarvGlenbeigh HospitalComment on above:Performed By: #### [id number] #### [facility] [address] [place], [place] [address]EA8 [Moles/Vol]24 mmol/EHnuxaz79-76SfxugnGlenbeigh Hospital Comment on above:Performed By: #### [id number] #### [facility] [address] [place], [place] [address]Wgcyiqtlhi [Mass/Vol]0.7 mg/dLNormal0.5-1.3FSelect Medical Specialty Hospital - Cincinnati NorthComment on above:Performed By: #### [id number] #### [facility] [address] [place], [place] [address]Yvkhuyy [Mass/Vol]96 mg/wRZrzizi54-901YykkkiGlenbeigh HospitalComment on above:Performed By: #### [id number] #### [facility] [address] [place], [place] [address]Uzawpmfov [Moles/Vol]3.3 mmol/LLow3.5-5.3FSelect Medical Specialty Hospital - Cincinnati NorthComment on above:Performed By: #### [id number] #### [facility] [address] [place], [place] [address]Gpqfvd [Moles/Vol]137 mmol/OOywxpe685-945CbtywpGlenbeigh HospitalComment on above:Performed By: #### [id number] #### [facility] [address] [place], [place] [address]Ysmz nitrogen [Mass/Vol]18 mg/dLNormal5-21Glenbeigh HospitalComment on above:Performed By: #### [id number] #### [facility] [address] [place], [place] [address]Khdy nitrogen/Creatinine [Mass ratio]26 No QthohZgcb74-46BvxfeuGlenbeigh HospitalComment on above:Performed By: #### [id number] #### [facility] [address] [place], [place] [address]QWA w/ Auto Diffon 45-64-7440Mseuamwhu/100 WBC (Bld)0.3 %Normal 0.0-2.0Glenbeigh HospitalComment on above:Performed By: #### [id number] #### [facility] [address] [place], [place] [address]Yyreuurws/Leukocytes Auto (Bld) [Pure # fraction]0.1 E9/LNormal 0.0-0.2FSelect Medical Specialty Hospital - Cincinnati NorthComment on above:Performed By: #### [id number] #### [facility] [address] [place] [address]Mbylqollnfz (Bld) [#/Vol]0.1 E9/LNormal0.0-0.5FSelect Medical Specialty Hospital - Cincinnati NorthComment on above:Performed By: #### [id number] #### [facility] [address] [place], [place] [address]Ndmzspoxnie/100 WBC (Bld)0.4 %Normal0.0-8.0Glenbeigh HospitalComment on above:Performed By: #### [id number] #### [facility] [address] [place], [place] [address]Hjztfhccgvj distribution width (RBC) [Ratio]13.3 %Normal 10.9-14.2FSelect Medical Specialty Hospital - Cincinnati NorthComment on above:Performed By: #### [id number] #### [facility] [address] [place] [address] 39727Ibirdabbjc (Bld) [Volume fraction]43.9 %Wneaud03.0-46.0Glenbeigh HospitalComment on above:Performed By: #### [id number] #### [facility] [address] [place] [address] 64703Hcmpgwkvqj (Bld) [Mass/Vol]14.5 g/uVRygayb90.0-16.0[facility]igh HospitalComment on above:Performed By: #### [id number] #### [facility] [address] [place] [address] 29080Duocdjvwsme (Bld) [#/Vol]2.3 E9/LNormal1.0-4.0[facility]igh HospitalComment on above:Performed By: #### [id number] #### [facility] [address] [place] [address] 24760Zetbsynqzpo/100 WBC (Bld)13.7 %Low14.0-50.0G[facility]beigh HospitalComment on above:Performed By: #### [id number] #### [facility] [address] [place] [address] 54011VCV (RBC) [Entitic mass]28.3 dqAwdljj18.0-34.0G[facility]beigh HospitalComment on above:Performed By: #### [id number] #### [facility] [address] [place] [address] 19592VVWO (RBC) [Mass/Vol]33.0 g/cTEgbwet26.4-36.0G[facility]igh HospitalComment on above:Performed By: #### [id number] #### [facility] [address] [place] [address] 98821BEQ (RBC) [Entitic vol]85.8 rRQbvfqv27.0-100.0G[facility]igh HospitalComment on above:Performed By: #### [id number] #### [facility] [address] [place] [address] 41275Plaifjwtn (Bld) [#/Vol]1.2 E9/LHigh0.2-1.0G[facility]beigh HospitalComment on above:Performed By: #### [id number] #### [facility] [address] [place] [address] 55870Vfxjmjqurvr (Bld) [#/Vol]13.1 E9/LHigh2.0-7.5FSelect Medical Specialty Hospital - Cincinnati NorthComment on above:Performed By: #### [id number] #### [facility] [address] [place] [address] 97900Tttuxnnzoam/100 WBC (Bld)78.5 %High36.0-75.0G[facility]beigh HospitalComment on above:Performed By: #### [id number] #### [facility] [address] [place] [address] 43146Fmnhxdbo mean volume (Bld) [Entitic vol]8.2 fLNormal6.4-10.8 [facility] HospitalComment on above:Performed By: #### [id number] #### [facility] [address] [place] [address] 75670Ouwcdzqvm (Bld) [#/Vol]246.0 E9/YUeyhzb310.0-500.0G[facility]igh HospitalComment on above:Performed By: #### [id number] #### [facility] [address] [place] [address] 27156GBQ (Bld) [#/Vol]5.1 E12/LNormal4.3-5.9G[facility]beigh HospitalComment on above:Performed By: #### [id number] #### [facility] [address] [place] [address] 83412VIW corrected for nucl RBC Auto (Bld) [#/Vol]16.7 E9/LHigh 4.0-11.0Glenbeigh HospitalComment on above:Result Comment: Peripheral smear review performed.Performed By: #### [id number] #### [facility] [address] [place], [place] [address]XO Clinical Summaryon [id number] Clinical SummaryED Clinical Summary [address] [address] ED Clinical Summary Person Information Name: PILI PARIKH/[place] Age: 19 Years : 2005 Sex: Female Language: Taiwanese PCP: MODESTA CHAND CNP Marital Status: Single [...] 08/01/2024 12:09:48 08/01/2024 12:09:48 ADDRESS: [address] [id number] PHYS DOC NOTES: MEDICAL INFORMATION: Prescriptions Given: New Medications [id number], [address], [place] [id number], [phone] potassium chloride (potassium chloride 20 mEq ER [...] Follow up: With: Address: When: MODESTA CHAND [address] [place] [address] [phone] Responsys (1) In 3 days 08/04/2024 Comments: Make sure to fill the prescriptions that was prescribed from [place]. Fill the new prescription for potassium. Follow-up with your primary doctor as discussed. Return to the emergency room if your vomiting recurs, abdominal pain recurs or any new symptoms. DIAGNOSIS: 1:Vomiting and diarrhea; 2:Hypokalemia; 3:Leukocytosis; Diarrhea, unspecified [facility] CenterED Note-Physicianon [id number] Note-Physician ED Note-Physician Basic Information Time Seen: August Bermudez M.D. 08/01/2024 09:27 Chief Complaint just left [place] [facility], seen multiple times for n/v lightheaded. hx cyclic vomiting, state its not that. has medication at [facility] but wanted to come here instead for [...] any sick contact. The patient was at [facility] and they did send medication to [facility] however she feels she is dehydrated. The [...] and Complexity of Problems Differential Diagnosis: [] [facility] Data External documents reviewed: [] [...] day(s), # 4 tab(s), Refills(s) 0, Pharmacy: [facility][id number], 157, cm, 08/01/24 9:34:00 EDT, Height/Length [...] improved Discharge Disposition Dis (more content not included)...[facility] HospitalComment on above:Result Comment: Electronically Signed By: August Bermudez M.D.\.br\Date and Time Signed: 08/01/2411:58 EDTED Patient Summaryon [id number] Patient SummaryED Patient Summary [address] [address] Patient Discharge Instructions Person Information Name: PILI PARIKH Age: 19 Years Arrival Date: 08/01/2024 09:23:00 Discharge Diagnosis: 1:Vomiting and diarrhea; 2:Hypokalemia; 3:Leukocytosis; Diarrhea, unspecified Primary Care Physician: MODESTA CHAND CNP Provider Information Primary Provider: August Bermudez M.D. Advanced Searchlight Operator:None The exam and treatment you received in the Emergency Department were for an urgent problem and are not intended as complete care. It is important that you follow up with a doctor, nurse practitioner,or physician?s executive assistant for ongoing care. If your [...] Follow-up Instructions: With: Address: When: MODESTA CHAND [address] [place] [id number] [phone] Business (1) In 3 days 08/04/2024 Comments: Make sure to fill the prescriptions that was prescribed from [place]. Fill the new prescription for potassium. Follow-up [...] opioids can be used to help relieve xkufaocd-ep-kqfnuu pain and are often prescribed following a [...] your community drug take- back program or [place] mail-back program, or flush them down the to (more content not included)...NormalGlenbeigh HospitalHep Func Panelon 92-24-6428Phqeqvk [Mass/Vol]5.1 g/dLHigh3.3-5.0[facility] Comment on above:Performed By: #### [id number] #### [facility] [address] [place], [place] [address]Tfxbuzc/Globulin (S) [Mass conc ratio]1.8Udsgek8.1-2.2FSelect Medical Specialty Hospital - Cincinnati NorthComment on above:Performed By: #### [id number] #### [facility] [address] [place], [place] [address]YRU [Catalytic activity/Vol]75 Int._Unit/OGqgvhy48-51JjidayGlenbeigh HospitalComment on above:Performed By: #### [id number] #### [facility] [address] [place], [place] [address]DVB No additional P-5'-P [Catalytic activity/Vol]45 Int._Unit/L Normal6-46Glenbeigh HospitalComment on above:Performed By: #### [id number] #### [facility] [address] [place], [place] [address]WSE [Catalytic activity/Vol]25 Int._Unit/LNormal5-43G[facility]igh HospitalComment on above:Performed By: #### [id number] #### [facility] [address] [place], [place] [address]Kuuojoyoh [Mass/Vol]0.9 mg/dLNormal0.0-1.1FSelect Medical Specialty Hospital - Cincinnati NorthComment on above:Performed By: #### [id number] #### [facility] [address] [place], [place] [address]Tbwbrnddn.direct [Mass/Vol]0.1 mg/dLNormal0.0-0.4FSelect Medical Specialty Hospital - Cincinnati NorthComment on above:Performed By: #### [id number] #### [facility] [address] [place] [address]40[address]Zkcfsxanl.indirect [Mass or moles/Vol]0.8 mg/dLNormal0.1-0.9 [facility] HospitalComment on above:Performed By: #### [id number] #### [facility] [address] [place] [address] 468[address]Cgmcpwfi (S) [Mass/Vol]3.0 g/dLNormal1.4-4.0G[facility]beigh HospitalComment on above:Performed By: #### [id number] #### [facility] [address] [place] [address]Zugoeqn [Mass/Vol]8.1 g/dLHigh6.0-7.8G[facility]igh HospitalComment on above:Performed By: #### [id number] #### [facility] [address] [place], [place] [address]Dzlljj Levelon 93-90-1327Lgbubt [Catalytic activity/Vol]27 U/L Qcqjgs98-50KjfflkGlenbeigh HospitalComment on above:Performed By: #### [id number] #### [facility] [address] [place], [place] [address]Bzgndkfkegx 28-42-1142Npysdheeb [Mass/Vol]2.2 mg/dLNormal 1.3-2.4FSelect Medical Specialty Hospital - Cincinnati NorthComment on above:Performed By: #### [id number] #### [facility] [address] [place], [place] [address]DV & PTTon 85-29-1488qLEN Coag (PPP) [Time]31.2 second(s)Normal 25.1-36.5Fre[facility] Krieger InstituteComment on above:Result Comment: Parameter 15 days - [...] the same coagulation reagent and instrumentation as [facility]. Currently there are no coagulation studies available worldwide for children to 14 days, andno normal ranges. Heparin therapeutic range (represented by Anti-Factor Xa activity of 0.2 - 0.4 U/mL) corresponds to PTT of 56.6 - 109.0 sec.Performed By: #### [id number] #### [facility] [address] [place], [place] [address]QLT Coag (PPP) [Relative time]1.11 {INR}Invalid Interpretation CodeGinoThomas B. Finan CenterComment on above:Result Comment: INR results are specifically intended to assess patients stabilized on long-term Anticoagulation therapy suggested INR?s ?Less Intensive Anticoagulation? 2.0 ? 3.0 Conventional Range 3.0 ? 4.5Performed By: #### [id number] #### [facility] [address] [place], [place] [address]AG Coag (PPP) [Time]12.5 second(s)Normal9.4-12.5Fre[facility] Kennedy Krieger InstituteComment on above:Result Comment: 15 days - 4 [...] the same coagulation reagent and instrumentation as [facility]. Currently there are no coagulation studies available worldwide for children to 14 days, andno normal ranges.Performed By: #### [id number] #### [facility] [address] [place], [place] [address]Tzbwfcjs 0 Hr.on 92-69-9884Vopgusgh HS5.20 pg/mLLow10.10-27.10 Glen[facility]igh HospitalComment on above:Result Comment: The 95% CI (Confidence Interval) PPV (Positive Predictive Value) for myocardial infarction in females is 38 pg/mL, in males 51 pg/mL. The results should be used in conjunction with clinical conditions of myocardial infarction. (Access High Sensitivity Troponin I Instructions For Use, Sugar Sundar, June 2018)Performed By: #### [id number] #### [facility] [address] [place], [place] [address]eJWOzz 85-80-5765fAUF618 mL/min/1.73 x1Bxkcyt>=59Glenbeigh HospitalComment on above:Order Comment: Order added by Discern Expert. Performed By: #### [id number] #### [facility] [address] [place], [place] [address]ETCnj 19-80-7521Umdqg gap [Moles/Vol]13 mmol/LNormal6-16Glenbeigh HospitalComment on above:Performed By: #### [id number] #### [facility] [address] [place], [place] [address]Omqnwma [Mass/Vol]9.4 mg/dLNormal8.9-11.1FSelect Medical Specialty Hospital - Cincinnati NorthComment on above:Performed By: #### [id number] #### [facility] [address] [place], [place] [address]Bdxizcjv [Moles/Vol]107 mmol/OOarhzg815-520AdvodzGlenbeigh HospitalComment on above:Performed By: #### [id number] #### [facility] [address] [place], [place] [address]DK0 [Moles/Vol]25 mmol/IEutetc16-30KfldolGlenbeigh Hospital Comment on above:Performed By: #### [id number] #### [facility] [address] [place], [place] [address]Fotfkxnydy [Mass/Vol]0.8 mg/dLNormal0.5-1.3FSelect Medical Specialty Hospital - Cincinnati NorthComment on above:Performed By: #### [id number] #### [facility] [address] [place], [place] [address]Xbqaeue [Mass/Vol]89 mg/cEWswcxz24-502BlimacGlenbeigh HospitalComment on above:Performed By: #### [id number] #### [facility] [address] [place], [place] [address]Qjzxbrbzj [Moles/Vol]3.6 mmol/LNormal3.5-5.3FSelect Medical Specialty Hospital - Cincinnati NorthComment on above:Performed By: #### [id number] #### [facility] [address] [place], [place] [address]Incvxk [Moles/Vol]141 mmol/RYrfdsq578-362PqwzyeGlenbeigh HospitalComment on above:Performed By: #### [id number] #### [facility] [address] [place], [place] [address]Mvrc nitrogen [Mass/Vol]19 mg/dLNormal5-21G[facility]igh HospitalComment on above:Performed By: #### [id number] #### [facility] [address] [place], [place] [address]Ntgo nitrogen/Creatinine [Mass ratio]24 No XwmuiNkxo32-27PvbsnlGlenbeigh HospitalComment on above:Performed By: #### [id number] #### [facility] [address] [place], [place] [address]JTE w/ Auto Diffon 12-32-2469Kbnwulhyj/100 WBC (Bld)0.4 %Normal 0.0-2.0G[facility]beigh HospitalComment on above:Performed By: #### [id number] #### [facility] [address] [place] [address]Araqatieh/Leukocytes Auto (Bld) [Pure # fraction]0.1 E9/LNormal 0.0-0.2FSelect Medical Specialty Hospital - Cincinnati NorthComment on above:Performed By: #### [id number] #### [facility] [address] [place] [address] 166[address]Rkxsghhrgln (Bld) [#/Vol]0.1 E9/LNormal0.0-0.5FSelect Medical Specialty Hospital - Cincinnati NorthComment on above:Performed By: #### [id number] #### [facility] [address] [place] [address]Gobkzffxfxc/100 WBC (Bld)0.5 %Normal0.0-8.0[facility]beigh HospitalComment on above:Performed By: #### [id number] #### [facility] [address] [place] [address]Nuqxumrelkf distribution width (RBC) [Ratio]13.2 %Normal 10.9-14.2FSelect Medical Specialty Hospital - Cincinnati NorthComment on above:Performed By: #### [id number] #### [facility] [address] [place] [address]Rpwpuozwqw (Bld) [Volume fraction]39.6 %Ocqitx58.0-46.0Glenbeigh HospitalComment on above:Performed By: #### [id number] #### [facility] [address] [place] [address]Umgbwinklc (Bld) [Mass/Vol]13.7 g/gHJazlxq26.0-16.0[facility]igh HospitalComment on above:Performed By: #### [id number] #### [facility] [address] [place] [address] 76[address]Kqvgjprhmew (Bld) [#/Vol]2.3 E9/LNormal1.0-4.0[facility]igh HospitalComment on above:Performed By: #### [id number] #### [facility] [address] [place] [address]101[address]Qflfdqoinjp/100 WBC (Bld)14.1 %Zzudwp29.0-50.0[facility] HospitalComment on above:Performed By: #### [id number] #### [facility] [address] [place] [address]GUP (RBC) [Entitic mass]29.4 vfGzgpnr01.0-34.0G[facility]igh HospitalComment on above:Performed By: #### [id number] #### [facility] [address] [place] [address]XGYW (RBC) [Mass/Vol]34.5 g/hZGgmnpr18.4-36.0[facility]igh HospitalComment on above:Performed By: #### [id number] #### [facility] [address] [place] [address]OKI (RBC) [Entitic vol]85.3 pTEqukku54.0-100.0[facility]igh HospitalComment on above:Performed By: #### [id number] #### [facility] [address] [place] [address]80[address]Lpjrmmoce (Bld) [#/Vol]1.2 E9/LHigh0.2-1.0[facility]igh HospitalComment on above:Performed By: #### [id number] #### [facility] [address] [place] [address]Ceycnpzhyky (Bld) [#/Vol]12.6 E9/LHigh2.0-7.5FSelect Medical Specialty Hospital - Cincinnati NorthComment on above:Performed By: #### [id number] #### [facility] [address] [place] [address]Gzojxiinkaj/100 WBC (Bld)77.5 %High36.0-75.0G[facility]igh HospitalComment on above:Performed By: #### [id number] #### [facility] [address] [place], [place] [address]Jpfygsds597.0 E9/KOushov575.0-500.0[facility] Comment on above:Performed By: #### [id number] #### [facility] [address] [place], [place] [address]Eogwsmzk mean volume (Bld) [Entitic vol]8.1 fLNormal6.4-10.8 [facility] HospitalComment on above:Performed By: #### [id number] #### [facility] [address] [place], [place] [address]SDR (Bld) [#/Vol]4.7 E12/LNormal4.3-5.9Glenbeigh HospitalComment on above:Performed By: #### [id number] #### [facility] [address] [place], [place] [address]LWE corrected for nucl RBC Auto (Bld) [#/Vol]16.2 E9/LHigh 4.0-11.0G[facility]igh HospitalComment on above:Performed By: #### [id number] #### [facility] [address] [place] [address]KBIORTQKEMcqmltc By: Manish Sales on 30-85-0096Kxbkgal [Mass/Vol]4.7 g/dLNormal3.3 - 5.0 gm/dLRemisol ChemAlbumin/Globulin [Mass ratio] 1.7 {ratio}Normal1.1 - 2.2Remisol ChemALP [Catalytic activity/Vol]73 [iU]/d Dpmtbk31 - 98 Int._Unit/LRemisol ChemALT No additional P-5'-P [Catalytic activity/Vol]46 [iU]/dNormal6 - 46 Int._Unit/LRemisol ChemAnion gap [Moles/Vol] 13 mmol/LNormal6 - 16 mEq/LRemisol ChemAST [Catalytic activity/Vol]24 [iU]/d Normal5 - 43 Int._Unit/LRemisol ChemBilirubin [Mass/Vol]0.7 mg/dLNormal0.0 - 1.1 mg/dLRemisol ChemBilirubin.direct [Mass/Vol]0.1 mg/dLNormal0.0 - 0.4 mg/dL Remisol ChemBilirubin.indirect [Mass or moles/Vol]0.6 mg/dLNormal0.1 - 0.9 mg/dL Remisol ChemCalcium [Mass/Vol]9.4 mg/dLNormal8.9 - 11.1 mg/dLRemisol Chem Chloride [Moles/Vol]107 mmol/NYencwk946 - 111 mmol/LRemisol ChemCO2 [Moles/Vol] 25 mmol/LTmxfqg60 - 31 mmol/LRemisol ChemCreatinine [Mass/Vol]0.8 mg/dLNormal0.5 - 1.3 mg/dLRemisol QbugyUJN295 mL/min/1.73 y4Igpzid>=59mL/min/1.73 e2Myaeszd ChemGlobulin (S) [Mass/Vol]2.8 g/dLNormal1.4 - 4.0 gm/dLRemisol ChemGlucose [Mass/Vol]89 mg/nYMyqjez97 - 199 mg/dLRemisol ChemLipase [Catalytic activity/Vol]10 U/LLow13 - 58 unit/LRemisol ChemMagnesium [Mass/Vol]2.2 mg/dL Normal1.3 - 2.4 mg/dLRemisol ChemPotassium [Moles/Vol]3.6 mmol/LNormal3.5 - 5.3 mmol/LRemisol ChemProtein [Mass/Vol]7.5 g/dLNormal6.0 - 7.8 gm/dLRemisol Chem Sodium [Moles/Vol]141 mmol/YEdcpaj464 - 145 mmol/LRemisol ChemUrea nitrogen [Mass/Vol]19 mg/dLNormal5 - 21 mg/dLRemisol ChemUrea nitrogen/Creatinine [Mass ratio]24 mg/izEjue98 - 20Remisol ChemED Clinical Summaryon [id number] Clinical SummaryED Clinical Summary [address] [address] ED Clinical Summary Person Information Name: PILI PARIKH/[place] Age: 19 Years : 2005 Sex: Female Language: Taiwanese PCP: MODESTA ARCHIBALD Marital Status: Single Visit [...] 07/30/2024 22:55:49 07/30/2024 22:55:49 07/30/2024 22:55:49 ADDRESS: [address] [place] [phone] PHYS DOC NOTES: MEDICAL INFORMATION: Prescriptions Given: New Medications [facility] #[id number], [address], [place] [id number], [phone] ondansetron (Zofran ODT 4 mg Tab-Dis) 1 Tablets By Mouth every 8 hours as needed Nausea/Vomiting. Refills: 0. Medications to Continue Taking That Have Changed [facility]/pharmacy #[id number], [address], [place] [id number], [phone] START: promethazine (Phenergan 12.5 mg Supp) 1 [...] Follow up: With: Address: When: FAMILIA ROSESON [facility] [address] [address] Business (1) In 3 days 08/02/2024 DIAGNOSIS: AP (abdominal pain); N&V (nausea and vomiting)[facility] ED Note-Physicianon [id number] Note-PhysicianED Note-Physician Basic Information Time Seen: Dustin [...] and Complexity of Problems Differential Diagnosis: [] [facility] Data External documents reviewed: N/A [...] PRN Nausea/Vomiting, # 16 tab(s), Refills(s) 0, [id number] 157, cm, 07/30/24 19:37:00 EDT, Height/Length Dosing, 96.1, kg, 07/30/24 19:37:00 EDT, Weight Dosing promethazine, 12.5 mg = 1 tab(s), Oral, q8hr, PRN as needed for nausea/vomiting, second line, # 10 tab(s), Refills(s) 0, [id number] 157, cm, 07/30/24 19:37:00 EDT, Height/Length Dosing, 96.1, kg, 07/30/24 19:37:00 EDT, Weight Dosing promethazine, 12.5 mg = 1 supp, Rectal, q8hr, PRN as needed for nausea/vomiting, 3rd line, # 6 EA, Refills(s) 0, [facility] 157, cm, 07/30/24 [...] Level Saline Lock Insert Medications Administered Given egxo83NBL [F] 1000 mg + GenDil 100 mL, IV Piggyback famotidine 10 mg/mL IV Lisa, 20 mg, IV Push NS 1000 ml Bolus, 1000 mL, IV ckbftm20Tkxnusdpj [F] 12.5 mg + Sodium Chloride 0.9% IV Lisa 50 mL [F] 50 mL, IV Piggyback Disposition Plan Discharge Prescription List Prescriptions Phenergan 12.5 mg Supp, 12.5 mg= 1 supp, Rectal, q8hr, PRN promethazine 12.5 mg oral tablet, 12.5 mg= 1 tab(s), Oral, q8hr, PRN Zofran ODT 4 mg Tab-Dis, 4 mg= 1 tab(s), Or (more content not included)...Normal [facility] HospitalComment on above:Result Comment: Electronically Signed By: Dustin Villalobos DO\.br\Date and Time Signed: 07/30/24 22:50 EDTED Patient Summaryon [id number] Patient SummaryED Patient Summary [address] [address] Patient Discharge Instructions Person Information Name: PILI PARIKH Age: 19 Years Arrival Date: 07/30/2024 19:26:13 Discharge Diagnosis: AP (abdominal pain); N&V (nausea and vomiting) Primary Care Physician: MODESTA ARCHIBALD Provider Information Primary Provider: Dustin Villalobos DO Advanced Searchlight Operator:None The exam and treatment you received in the Emergency Department were for an urgent problem and are not intended as complete care. It is important that you follow up with a doctor, nurse practitioner,or physician?s executive assistant for ongoing care. If your [...] Follow-up Instructions: With: Address: When: FAMILIA CHAND [facility] [address] [phone] Business (1) In 3 days 08/02/2024 In the event that this physician does not participate in your insurance network, please consult with your insurance company to find a nearby participating provider. Patient Education Materials: Nausea and Vomiting, Adult A MESSAGE TO ALL PATIENTS REGARDING OPIOIDS PRESCRIPTION OPIOIDS: WHAT YOU NEED TO KNOW Prescription opioids can be used to help relieve tvwluubw-ml-gczvim pain and are often prescribed following a [...] your community drug take- back program or [place]ingu[place] mail-back program, or flush them down the toilet, following guidance from the Food and Drug Administration (www.fda.gov/Drugs/ResourcesForYou). ? Visit www.cdc.gov/drugoverdose to learn about the risks of opioids abuse and overdose. ? If you believe you may be struggling with addiction, tell your health manager care management and ask for guidance or call [facility] (more content not included)...[facility] HospitalHEMATOLOGYOrdered By: SYSTEM SYSTEM on 81-94-2271Ceneuzpfj/100 WBC (Bld)0.4 %Normal0.0 - 2.0 %Remisol HemeBasophils/Leukocytes Auto (Bld) [Pure # fraction]0.1 E9/LNormal0.0 - 0.2 E9/LRemisol HemeEosinophils (Bld) [#/Vol]0.1 E9/LNormal0.0 - 0.5 E9/LRemisol HemeEosinophils/100 WBC (Bld)0.5 %Normal0.0 - 8.0 %Remisol HemeErythrocyte distribution width (RBC) [Ratio]13.2 %Epixzs98.9 - 14.2 %Remisol HemeHematocrit (Bld) [Volume fraction]39.6 %Tpmnai60.0 - 46.0 %Remisol HemeHemoglobin (Bld) [Mass/Vol]13.7 g/vTQiuozb22.0 - 16.0 gm/dLRemisol HemeLymphocytes (Bld) [#/Vol] 2.3 E9/LNormal1.0 - 4.0 E9/LRemisol HemeLymphocytes/100 WBC (Bld)14.1 %Normal 14.0 - 50.0 %Remisol HemeMCH (RBC) [Entitic mass]29.4 jwOzphwa21.0 - 34.0 pg Remisol HemeMCHC (RBC) [Mass/Vol]34.5 g/lTPifdzg93.4 - 36.0 gm/dLRemisol HemeMCV (RBC) [Entitic vol]85.3 gYSvawcl55.0 - 100.0 fLRemisol HemeMonocytes (Bld) [#/Vol]1.2 E9/LHigh0.2 - 1.0 E9/LRemisol HemeMonocytes/100 WBC (Bld)7.5 %Normal 4.0 - 14.0 %Remisol HemeNeutrophils (Bld) [#/Vol]12.6 E9/LHigh2.0 - 7.5 E9/L Remisol HemeNeutrophils/100 WBC (Bld)77.5 %High36.0 - 75.0 %Remisol HemePlatelet 260.0 E9/DVxenod148.0 - 500.0 E9/LRemisol HemePlatelet mean volume (Bld) [Entitic vol]8.1 fLNormal6.4 - 10.8 fLRemisol HemeRBC (Bld) [#/Vol]4.7 E12/L Normal4.3 - 5.9 E12/LRemisol HemeWBC corrected for nucl RBC Auto (Bld) [#/Vol] 16.2 E9/LHigh4.0 - 11.0 E9/LRemisol HemeHep Func Panelon 10-16-1198Wehxidc [Mass/Vol]4.7 g/dLNormal3.3-5.0[facility] Centerer Kennedy Krieger InstituteComment on above: Performed By: #### [id number] #### [facility] [address] [place], [place] [address]Zmafuec/Globulin (S) [Mass conc ratio]1.5Tswkir8.1-2.2Fisher Kennedy Krieger InstituteComment on above:Performed By: #### [id number] #### [facility] [address] [place], [place] [address]AMJ [Catalytic activity/Vol]73 Int._Unit/AItjtea64-02SswmdwGlenbeigh HospitalComment on above:Performed By: #### [id number] #### [facility] [address] [place] [address]MAP No additional P-5'-P [Catalytic activity/Vol]46 Int._Unit/L Normal6-46Glenbeigh HospitalComment on above:Performed By: #### [id number] #### [facility] [address] [place] [address]NLL [Catalytic activity/Vol]24 Int._Unit/LNormal5-43Glenbeigh HospitalComment on above:Performed By: #### [id number] #### [facility] [address] [place] [address]Pdkxewqdw [Mass/Vol]0.7 mg/dLNormal0.0-1.1FSelect Medical Specialty Hospital - Cincinnati NorthComment on above:Performed By: #### [id number] #### [facility] [address] [place] [address]Bppsskmam.direct [Mass/Vol]0.1 mg/dLNormal0.0-0.4FSelect Medical Specialty Hospital - Cincinnati NorthComment on above:Performed By: #### [id number] #### [facility] [address] [place] [address]Mswwprpfo.indirect [Mass or moles/Vol]0.6 mg/dLNormal0.1-0.9 [facility]igh HospitalComment on above:Performed By: #### [id number] #### [facility] [address] [place] [address]Llqobuye (S) [Mass/Vol]2.8 g/dLNormal1.4-4.0G[facility]igh HospitalComment on above:Performed By: #### [id number] #### [facility] [address] [place] [address]Iotgvlm [Mass/Vol]7.5 g/dLNormal6.0-7.8[facility]igh HospitalComment on above:Performed By: #### [id number] #### [facility] [address] [place], [place] [address]Pabvdu Levelon 50-32-5425Pbzvzx [Catalytic activity/Vol]10 U/L Xxv11-62FheabxGlenbeigh HospitalComment on above:Performed By: #### [id number] #### [facility] [address] [place], [place] [address]Zsjyzqwuoza 78-84-6921Eahbqwlyb [Mass/Vol]2.2 mg/dLNormal 1.3-2.4Fisher Kennedy Krieger InstituteComment on above:Performed By: #### [id number] #### [facility] [address] [place], [place] [address]qTRNag 58-96-9305nWQV802 mL/min/1.73 n9Ivxfbq>=59Glenbeigh HospitalComment on above:Order Comment: Order added by Discern Expert. Performed By: #### [id number] #### [facility] [address] [place], [place] [address]Zoncovh aminotransferase [Enzymatic activity/volume] in Serum or PlasmaOrdered By: Femi Benitez on 12-59-5598KFM [Catalytic activity/Vol]25 U/L 7-52[facility] HospitalAlbumin [Mass/volume] in Serum or Plasma by Bromocresol green (BCG) dye binding methoOrdered By: Femi Benitez on 03-18-2024 Albumin BCG dye [Mass/Vol]5.3 g/dL3.5-5.7FKet[facility] Alkaline phosphatase [Enzymatic activity/volume] in Serum or PlasmaOrdered By: Femi Benitez on 70-48-3171IDF [Catalytic activity/Vol]82 U/P66-408VkolhlbbcZanesville City HospitalAspartate aminotransferase [Enzymatic activity/volume] in Serum or PlasmaOrdered By: Femi Benitez on 24-15-5809WGP [Catalytic activity/Vol] 23 U/G31-52HcoxctfueZanesville City HospitalBasophils Auto (Bld) [#/Vol]Ordered By: Femi Benitez on 56-38-0985Eebnjdsto (Bld) [#/Vol]0.1 10*3/uL0.0-0.2FKettering Health MiamisburgBasophils/100 WBC Auto (Bld)Ordered By: Femi Benitez on 64-12-0293Qoycjyzxz/100 WBC (Bld)0.4 %.[facility] Bilirubin.total [Mass/volume] in Serum or PlasmaOrdered By: Femi Benitez on 07-19-5451Kejyuorwl [Mass/Vol]0.9 mg/dL0.3-1.0[facility] Calcium [Mass/volume] in Serum or PlasmaOrdered By: Femi Benitez on 03-18-2024 Calcium [Mass/Vol]10.4 mg/dL8.6-10.3FKettering Health MiamisburgCarbon dioxide, total [Moles/volume] in Serum or PlasmaOrdered By: Femi Benitez on 88-44-9828MN5 [Moles/Vol]18.4 mmol/L21.0-31.0[facility] Chloride [Moles/volume] in Serum or PlasmaOrdered By: Femi Benitez on 03-18-2024 Chloride [Moles/Vol]94 mmol/H16-349CdoshdlzdZanesville City Hospital Choriogonadotropin.beta subunit [Units/volume] in Serum or PlasmaOrdered By: Femi Benitez on 47-06-9082MOC.beta subunit QnNegativeZanesville City HospitalCreatinine [Mass/volume] in Serum or PlasmaOrdered By: Femi Benitez on 36-31-9673Pdszsaqzmz [Mass/Vol]0.80 mg/dL0.60-1.20[facility] HospitalEosinophils Auto (Bld) [#/Vol]Ordered By: Femi Benitez on 03-18-2024 Eosinophils (Bld) [#/Vol]0.4 10*3/uL0.0-0.45[facility] Eosinophils/100 WBC Auto (Bld)Ordered By: Femi Benitez on 03-18-2024 Eosinophils/100 WBC (Bld)2.3 %.[facility] HospitalErythrocyte distribution width Auto (RBC) [Ratio]Ordered By: Femi Benitez on 03-18-2024 Erythrocyte distribution width (RBC) [Ratio]14.3 %11.9-15.3FKettering Health MiamisburgGlobulin Calc (S) [Mass/Vol]Ordered By: Femi Benitez on 03-18-2024 Globulin (S) [Mass/Vol]2.8 g/dLZanesville City HospitalGlucose [Mass/volume] in Serum or PlasmaOrdered By: Femi Benitez on 31-31-6571Zatuksj [Mass/Vol]95 mg/iS59-690CslxbmdeuZanesville City HospitalComment on above:ADA recommended reference rangeRandom Glucose Reference Range is dependent on time and content of last meal. Glucose of more than 200 mg/dL in a nonstressed, ambulatory subject supports the diagnosisof Diabetes Mellitus.Hematocrit Auto (Bld) [Volume fraction]Ordered By: Femi Benitez on 44-85-6191Ljsqpqugdb (Bld) [Volume fraction]48.2 %34.0-46.4FKettering Health MiamisburgHemoglobin [Mass/volume] in BloodOrdered By: eFmi Benitez on 79-37-3995Bursjsrpsu (Bld) [Mass/Vol]16.3 g/dL11.8-15.4FKettering Health MiamisburgLeukocytes [#/volume] corrected for nucleated erythrocytes in Blood by Automated coun Ordered By: Femi Benitez on 06-80-7072PPI corrected for nucl RBC Auto (Bld) [#/Vol]18.5 10*3/uL3.8-11.6FKettering Health MiamisburgLymphocytes Auto (Bld) [#/Vol]Ordered By: Femi Benitez on 12-28-0051Gnwkdeyhdri (Bld) [#/Vol]3.9 10*3/uL1.00-4.8[facility] HospitalLymphocytes/100 WBC Auto (Bld) Ordered By: Femi Benitez on 34-41-1460Iioenfcuvmf/100 WBC (Bld)20.9 %.[facility] HospitalMCH Auto (RBC) [Entitic mass]Ordered By: Femi Benitez on 00-09-2425QOO (RBC) [Entitic mass]28.2 pg24.7-34.3FKettering Health MiamisburgMCHC Auto (RBC) [Mass/Vol]Ordered By: Femi Benitez on 90-42-8234BRZK (RBC) [Mass/Vol]33.9 g/dL32.0-35.0[facility] Medical CenterMCV Auto (RBC) [Entitic vol]Ordered By: Femi Benitez on 06-96-0685MVI (RBC) [Entitic vol]83.2 fL 80-100Z[facility] City HospitalMonocyte distribution width [Entitic volume] in Blood by AutomatedOrdered By: Femi Benitez on 91-32-5788Pfkgovny distribution width Auto (Bld) [Entitic vol]16.34 %0.00-20.00[facility] HospitalMonocytes Auto (Bld) [#/Vol]Ordered By: Femi Benitez on 03-18-2024 Monocytes (Bld) [#/Vol]1.4 10*3/uL0.0-0.8[facility] Monocytes/100 WBC Auto (Bld)Ordered By: Femi Benitez on 60-80-8527Wuwjxiyfm/100 WBC (Bld)7.6 %.[facility] HospitalNeutrophils Auto (Bld) [#/Vol] Ordered By: Femi Benitez on 25-40-6187Mgpcxadiuvr (Bld) [#/Vol]12.7 10*3/uL1.8-7.7 [facility] HospitalNeutrophils/100 WBC Auto (Bld)Ordered By: Femi Benitez on 79-77-3262Fuuesnevvkg/100 WBC (Bld)68.8 %.[facility] HospitalNo Panel InformationOrdered By: Femi Benitez on 14-02-4260Bwhqtxgsc GFR (CKD-EPI)> 60.0 mL/MinZanesville City HospitalPharmacy Creatinine Clearance (Djta739.98[facility] HospitalNucleated erythrocytes [Presence] in Blood by Automated countOrdered By: Femi Benitez on 03-18-2024 Nucleated RBC Auto Ql (Bld)0.1 /100{WBC}0-0.5FK[facility] Platelet mean volume Auto (Bld) [Entitic vol]Ordered By: Femi Benitez on 95-20-4804Lhlzpbbw mean volume (Bld) [Entitic vol]8.5 fL6.3-10.7FKettering Health MiamisburgPlatelets Auto (Bld) [#/Vol]Ordered By: Femi Benitez on 40-30-3273Hftqccjwg (Bld) [#/Vol]358 10*3/pZ942-240DbdkstodeZanesville City HospitalPotassium [Moles/volume] in Serum or PlasmaOrdered By: Femi Benitez on 59-22-1061Bigyzceez [Moles/Vol]See comment3.5-5.1FKettering Health MiamisburgComment on above:Specimen hemolyzed, redraw requestedResults calledat 2349 on 03/18/24Protein [Mass/volume] in Serum or PlasmaOrdered By: Femi Benitez on 38-13-6734Jcyyicj [Mass/Vol]8.1 g/dL6.4-8.9[facility] City HospitalRBC Auto (Bld) [#/Vol]Ordered By: Femi Benitez on 29-53-8603MXP (Bld) [#/Vol]5.79 10*6/uL3.60-5.00[facility] Centererum or plasma albumin/globulin mass ratioOrdered By: Femi Benitez on 36-30-1997Ozcewnk/Globulin [Mass ratio]1.9 {ratio}[facility] Centererum or plasma anion gap determinationOrdered By: Femi Benitez on 80-29-9667Ipmuc gap [Moles/Vol]TNP [facility] HospitalComment on above:Test not performedSodium [Moles/volume] in Serum or PlasmaOrdered By: Femi Benitez on 35-99-3266Ilwxkn [Moles/Vol]134 mmol/Q265-955YjpetyrdvZanesville City HospitalUrea nitrogen [Mass/volume] in Serum or PlasmaOrdered By: Femi Benitez on 24-54-1838Mics nitrogen [Mass/Vol]27 mg/dL7-25[facility] HospitalWBC Auto (Bld) [#/Vol]Ordered By: Femi Benitez on 17-18-1080ROH (Bld) [#/Vol]18.5 10*3/uL3.8-11.6 [facility] HospitalCB w/ Auto Diffon 88-24-4183Jebuwtach/100 WBC (Bld)0.4 %Normal0.0-2.0[facility]igh HospitalComment on above:Performed By: #### [id number], 04289459, 4727231, 2397456 ####[address] [address]Yjdabijoc/Leukocytes Auto (Bld) [Pure # fraction]0.1 E9/LNormal0.0-0.2FSelect Medical Specialty Hospital - Cincinnati NorthComment on above: Performed By: #### 4533049, 90085867, 7503777, 8291750 ####[address] [address]Uwigcmglwuo (Bld) [#/Vol]0.0 E9/LNormal0.0-0.5FSelect Medical Specialty Hospital - Cincinnati NorthComment on above:Performed By: #### 4327929, 80023416, 0394831, 8419761 ####[address] [address]Bmcyjwigsgz/100 WBC (Bld)0.3 %Normal 0.0-8.0G[facility]igh HospitalComment on above:Performed By: #### 4426613, 40029618, 5126808, 8463379 ####[address] [address]Fsjizyqdjlz distribution width (RBC) [Ratio]14.1 % Jtbvaj29.9-14.2FSelect Medical Specialty Hospital - Cincinnati NorthComment on above:Performed By: #### 6391550, 26663221, 5648225, 8701753 ####[address] [address]Oybeuvgzcb (Bld) [Volume fraction] 44.0 %Kdlscw84.0-46.0[facility]igh HospitalComment on above:Performed By: #### 9399909, 29582109, 7627215, 3064702 ####[address] [address]Nfdtufqkmq (Bld) [Mass/Vol]14.4 g/dL Ekuevr27.0-16.0G[facility]igh HospitalComment on above:Performed By: #### 1011378, 86423578, 9253886, 4387632 ####[address] [address]Uttgliohlpt (Bld) [#/Vol]2.2 E9/L Normal1.0-4.0G[facility]beigh HospitalComment on above:Performed By: #### 5036229, 46685823, 1690156, 9536045 ####[address] [address]Nlbpoupstwr/100 WBC (Bld)15.8 %Normal 14.0-50.0G[facility]beigh HospitalComment on above:Performed By: #### 6888151, 96570294, 4691139, 6987469 ####[address] [address]CIV (RBC) [Entitic mass]27.8 xhPyvqyj81.0-34.0 [facility] HospitalComment on above:Performed By: #### 0292997, 25902133, 1046415, 2019359 ####[address] [address]OKPE (RBC) [Mass/Vol]32.6 g/gDZwqnun13.4-36.0[facility]igh HospitalComment on above:Performed By: #### 4375194, 04073105, 1664079, 4481533 ####[address] [address]OMA (RBC) [Entitic vol]85.2 dXKtdsog21.0-100.0G[facility]igh HospitalComment on above:Performed By: #### 3186280, 46036508, 0457033, 3587791 ####[address] [address]Qbfaoetuj (Bld) [#/Vol]1.1 E9/LHigh0.2-1.0[facility] Comment on above:Performed By: #### 9536570, 06177562, 2910668, 2445284 ####[address] [address] Neutrophils (Bld) [#/Vol]10.6 E9/LHigh2.0-7.5FSelect Medical Specialty Hospital - Cincinnati NorthComment on above:Performed By: #### 6067105, 54975160, 0990906, 6004861 ####[address] [address]Wuymuzvmmsp/100 WBC (Bld)75.9 %High36.0-75.0G[facility]igh HospitalComment on above:Performed By: #### 8289850, 24259217, 6243984, 7588588 ####[address] [address]Drypahwm mean volume (Bld) [Entitic vol]8.4 fLNormal6.4-10.8G[facility]igh HospitalComment on above:Performed By: #### 7339873, 05612450, 6524227, 6445656 ####[address] [address]Tuyfqukfr (Bld) [#/Vol]276.0 E9/L Pffhot202.0-500.0G[facility]beigh HospitalComment on above:Performed By: #### 2739828, 12312440, 7477786, 6647360 ####[address] [address]LTF (Bld) [#/Vol]5.2 E12/LNormal 4.3-5.9G[facility] HospitalComment on above:Performed By: #### 9888017, 20308531, 2868308, 4249054 ####[address] [address]ZVR corrected for nucl RBC Auto (Bld) [#/Vol]14.0 E9/LHigh4.0-11.0[facility]igh HospitalComment on above:Performed By: #### 1542663, 21433977, 6084247, 4377938 ####[address] [address]OKZSBAJSIPoxwzxd By: SYSTEM SYSTEM on 84-91-8457Sgquvhh [Mass/Vol]5.0 g/dLNormal3.3 - 5.0 gm/dLRemisol Chem Albumin/Globulin [Mass ratio]1.8 {ratio}Normal1.1 - 2.2Remisol ChemALP [Catalytic activity/Vol]69 [iU]/mJnprfy85 - 98 Int._Unit/LRemisol ChemALT No additional P-5'-P [Catalytic activity/Vol]31 [iU]/dNormal6 - 46 Int._Unit/L Remisol ChemAnion gap [Moles/Vol]22 mmol/LHigh6 - 16 mEq/LRemisol ChemAST [Catalytic activity/Vol]19 [iU]/dNormal5 - 43 Int._Unit/LRemisol ChemBilirubin [Mass/Vol]0.8 mg/dLNormal0.0 - 1.1 mg/dLRemisol ChemCalcium [Mass/Vol]10.4 mg/dL Normal8.9 - 11.1 mg/dLRemisol ChemCO2 [Moles/Vol]19 mmol/LLow21 - 31 mmol/L Remisol ChemCreatinine [Mass/Vol]0.8 mg/dLNormal0.5 - 1.3 mg/dLRemisol ChemeGFR 108 mL/min/1.73 t5Zwizdy>=59mL/min/1.73 a2Ijnomoa ChemGlobulin (S) [Mass/Vol]2.8 g/dLNormal1.4 - 4.0 gm/dLRemisol ChemGlucose [Mass/Vol]86 mg/xDKoaffw01 - 199 mg/dLRemisol ChemMagnesium [Mass/Vol]2.2 mg/dLNormal1.3 - 2.4 mg/dLRemisol Chem Protein [Mass/Vol]7.8 g/dLNormal6.0 - 7.8 gm/dLRemisol ChemUrea nitrogen [Mass/Vol]24 mg/dLHigh5 - 21 mg/dLRemisol ChemUrea nitrogen/Creatinine [Mass ratio]30 mg/zwYouz15 - 20Remisol ChemCHEMISTRYOrdered By: Manish Sales on 40-27-9931Odhzqxbe [Moles/Vol]99 mmol/AHfx300 - 111 mmol/LRemisol ChemPotassium [Moles/Vol]3.3 mmol/LLow3.5 - 5.3 mmol/LRemisol ChemSodium [Moles/Vol]137 mmol/L Mupwof760 - 145 mmol/LRemisol ChemCMPon 78-47-6391Qukcczao [Moles/Vol]99 mmol/L Pbs227-403ZmoungGlenbeigh HospitalComment on above:Performed By: #### 4880975, 13748511, 3495206, 0118636 ####[address] [address]Xijsfxjmr [Moles/Vol]3.3 mmol/LLow 3.5-5.3FSelect Medical Specialty Hospital - Cincinnati NorthComment on above:Performed By: #### 2075515, 86259262, 1403446, 5435559 ####[address] [address]Ivxvaf [Moles/Vol]137 mmol/YAbrnje437-223MvcrjxGlenbeigh HospitalComment on above:Performed By: #### 5829695, 53122299, 9471834, 1700059 ####[address] [address]Vmjcl gap [Moles/Vol]22 mmol/LHigh6-16G[facility]igh HospitalComment on above:Performed By: #### 7755842, 68552267, 8007629, 1071947 ####[address] [address]GI9 [Moles/Vol]19 mmol/SRvs38-08VupevrGlenbeigh HospitalComment on above: Performed By: #### 3784296, 16111217, 5927028, 7105391 ####[address] [address]Hpltbmr [Mass/Vol]5.0 g/dL Normal3.3-5.0[facility]igh HospitalComment on above:Performed By: #### 3834128, 17968595, 1318714, 9270954 ####[address] [address]Iksxyde/Globulin (S) [Mass conc ratio]1.5Nhwyqz3.1-2.2FSelect Medical Specialty Hospital - Cincinnati NorthComment on above:Performed By: #### 6197299, 42796098, 6970097, 3457053 ####[address] [address]QVH [Catalytic activity/Vol]69 Int._Unit/BLxxvkk96-95ZewkteGlenbeigh HospitalComment on above:Performed By: #### 2571711, 78302333, 9151917, 3439774 ####[address] [address]XFP No additional P-5'-P [Catalytic activity/Vol]31 Int._Unit/LNormal6-46[facility] HospitalComment on above:Performed By: #### 1483254, 19217775, 7688712, 9505256 ####[address] [address]KSJ [Catalytic activity/Vol]19 Int._Unit/LNormal5-43[facility] HospitalComment on above:Performed By: #### 4439825, 71702615, 9285456, 3573605 ####[address] [address]Dfwfwsxew [Mass/Vol] 0.8 mg/dLNormal0.0-1.1FSelect Medical Specialty Hospital - Cincinnati NorthComment on above:Performed By: #### 9506648, 99298292, 7564940, 1439495 ####[address] [address]Vzioicd [Mass/Vol]10.4 mg/dLNormal 8.9-11.1FSelect Medical Specialty Hospital - Cincinnati NorthComment on above:Performed By: #### 2075949, 44459881, 5842245, 8581400 ####[address] [address]Hqpbyvxzud [Mass/Vol]0.8 mg/dLNormal0.5-1.3FSelect Medical Specialty Hospital - Cincinnati NorthComment on above:Performed By: #### 4194963, 92946612, 3787522, 3424767 ####[facility] [address] [place] [address]Dtaxcofl (S) [Mass/Vol]2.8 g/dLNormal1.4-4.0[facility]igh HospitalComment on above:Performed By: #### 4467820, 26492981, 9942755, 6655617 ####[facility] [address] [place] [address]Yxsagmj [Mass/Vol]86 mg/jAIcdvcg55-970XgvfzkGlenbeigh HospitalComment on above:Performed By: #### 8427385, 55631806, 5337217, 8746402 ####[address] [address]Mhasoot [Mass/Vol]7.8 g/dLNormal6.0-7.8G[facility]igh HospitalComment on above:Performed By: #### 7624674, 65919032, 2007774, 8867524 ####[address] [address]Krfb nitrogen [Mass/Vol]24 mg/dLHigh 5-21G[facility]beigh HospitalComment on above:Performed By: #### 8437560, 84395508, 2762054, 3550522 ####[address] [address]Fzek nitrogen/Creatinine [Mass ratio]30 No Units Tjkf45-43JsdemzGlenbeigh HospitalComment on above:Performed By: #### 1685338, 96181017, 3555163, 4112782 ####[address] [address]BB Chest w/ Contraston 36-08-6998HF Chest w/ ContrastExam Date/Time: 03/15/2024 11:36 EDT [...] Contrast: Isovue 300 Contrast amount in ml's: 100NormCincinnati VA Medical CenterConsent for Treatmenton 02-90-9127Uekxvje for Treatment [id number]#1.00TIFFNoPremier Health Atrium Medical CenterDischarge Instructionson 68-23-2538Bceezochk Instructions [id number]#1.00TIFFNormalChristophe [facility] Clinical Summaryon 62-27-0461TU Clinical Summary [place] [id number] ED Clinical Summary Person Information Name: PILI PARIKH/New_Anthony Age: 19 Years : 2005 Sex: Female Language: Taiwanese PCP: MODESTA ARCHIBALD Marital Status: Single Visit [...] 03/15/2024 13:49:40 03/15/2024 13:49:40 03/15/2024 13:49:40 ADDRESS: [address] [place] [id number] [facility] DOC NOTES: MEDICAL INFORMATION: Prescriptions Given: Medications to Continue with No Changes Other Medications acetaminophen-hydrocodone ([place] 325 mg-5 mg oral tablet) 1 Tablets [...] any symptoms. DIAGNOSIS: 1:Nausea and vomiting; 2:PneumomediastinumNormalFisher Delphos Medical CenterED Note-Physicianon 14-30-1340HD Note-PhysicianBasic Information Time Seen: Ebony Birmingham, August [...] and Complexity of Problems Differential Diagnosis: [] [facility] Data External documents reviewed: [] [...] instructed. Return to (more content not included)...Normal [facility]igh HospitalComment on above:Result Comment: Electronically Signed By: August Bermudez M.D.\.br\Date and Time Signed: 03/15/2416:57 EDTED Patient Education Noteon 88-53-2971KN Patient Education NoteGastroenterology Nausea and Vomiting, Adult [...] added (diluted fruit juice). ? Eat bland, vgnt-ks-cokqfj foods in small amounts as you are able. These foods include bananas, applesauce, rice, lean meats, toast, and crackers. ? Avoid fluids that contain a lot of sugar or caffeine, such as energy drinks, sports drinks, and soda. ? Avoid alcohol. ? Avoid spicy or fatty foods. General instructions ? Take vyoy-udb-swamaeh and prescription medicines only as told by your health care provider. ? Drink enough fluid to keep your urine pale yellow. ? Wash your hands often using soap and water for at least 20 seconds. If soap and water are not available, use hand design technology professor. ? Make sure that everyone in your [...] and drinking to prevent dehydration. ? Take oupi-olx-iremktj and prescription medicines only as told by [...] provider. Document Revised: 05/21/2022 Document Reviewed: 05/21/2022 [employer] Patient Education ? 2022 [employer]. Radiology Pneumomediastinum Pneumomediastinum is the presence of [...] cocaine, and marijuana. Spontane (more content not included)...[facility] Patient Summaryon [id number] Patient Summary [place] [id number] Patient Discharge Instructions Person Information Name: PILI PARIKH Age: 19 Years Arrival Date: 03/15/2024 10:32:10 Discharge Diagnosis: 1:Nausea and vomiting; 2:Pneumomediastinum Primary Care Physician: MODESTA ARCHIBALD Provider Information Primary Provider: August Bermudez M.D. Advanced Searchlight Operator:None The exam and treatment you received in the Emergency Department were for an urgent problem and are not intended as complete care. It is important that you follow up with a doctor, nurse practitioner,or physician?s executive assistant for ongoing care. If your [...] opioids can be used to help relieve rsncrlpo-mm-wbrtzo pain and are often prescribed following a [...] you may be strugg (more content not included)...[facility] HospitalHEMATOLOGYOrdered By: SYSTEM SYSTEM on 03-15-2024 Basophils/100 WBC (Bld)0.4 %Normal0.0 - 2.0 %Remisol HemeBasophils/Leukocytes Auto (Bld) [Pure # fraction]0.1 E9/LNormal0.0 - 0.2 E9/LRemisol HemeEosinophils (Bld) [#/Vol]0.0 E9/LNormal0.0 - 0.5 E9/LRemisol HemeEosinophils/100 WBC (Bld) 0.3 %Normal0.0 - 8.0 %Remisol HemeErythrocyte distribution width (RBC) [Ratio] 14.1 %Ohgvhk34.9 - 14.2 %Remisol HemeHematocrit (Bld) [Volume fraction]44.0 % Lptupa57.0 - 46.0 %Remisol HemeHemoglobin (Bld) [Mass/Vol]14.4 g/vJFlamhk14.0 - 16.0 gm/dLRemisol HemeLymphocytes (Bld) [#/Vol]2.2 E9/LNormal1.0 - 4.0 E9/L Remisol HemeLymphocytes/100 WBC (Bld)15.8 %Svxqph14.0 - 50.0 %Remisol HemeMCH (RBC) [Entitic mass]27.8 unCqdxqn08.0 - 34.0 pgRemisol HemeMCHC (RBC) [Mass/Vol] 32.6 g/iJEqamdl97.4 - 36.0 gm/dLRemisol HemeMCV (RBC) [Entitic vol]85.2 [...] (Bld) [#/Vol]14.0 E9/LHigh4.0 - 11.0 E9/LRemisol HemeMagnesiumon 23-77-1941Gmmrruhwa [Mass/Vol]2.2 mg/dLNormal 1.3-2.4FSelect Medical Specialty Hospital - Cincinnati NorthComment on above:Performed By: #### 0504579, 75497684, 7989817, 7428694 ####[facility] [address] [place], [place] [address]iCMPtb 14-80-9821wMXW222 mL/min/1.73 d2Xjmolr>=59 [facility]igh HospitalComment on above:Order Comment: Order added by Discern Expert.Performed By: #### 9094966, 74817608, 9530825, 8224981 ####[facility] [address] [place], [place] [address]FM Abdomen/Pelvis w/ Contraston 27-87-7560OI Abdomen/Pelvis w/ ContrastExam Date/Time: 03/13/2024 19:18 EDT [...] Isovue 300 Contrast amount in ml's: 130NormalFisher Kennedy Krieger InstituteCT Chest w/ Contraston 53-40-6331CI Chest w/ ContrastExam Date/Time: 03/13/2024 19:18 EDT [...] Isovue 300 Contrast amount in ml's: 130NormalFisher Kennedy Krieger InstituteCT Head or Brain w/o Contraston 00-60-0619CE Head or Brain w/o ContrastExam Date/Time: 03/13/2024 [...] Erick Ferrer M.D. Transcribed by: KIRA Technologist: [facility] HospitalCT Spine Cervical w/o Contraston [id number] Spine Cervical w/o ContrastExam Date/Time: 03/13/2024 19:18 [...] Erick Ferrer M.D. Transcribed by: KIRA Technologist: [facility] HospitalEMS Documentationon [id number] DocumentationPlease click on link to see report [facility] HospitalComment on above:Result Comment: Missing Attachment - total size limit for all attachments exceeded [email or web address] Can be viewed in source systemXR Chest 2 Viewson [id number] Chest 2 ViewsExam Date/Time: 03/13/2024 21:35 EDT [...] Kar in mGy = na DAP = naNormalGlenbeigh HospitalABO/Rhon [id number]/RhPositive Invalid Interpretation [facility] HospitalComment on above:Performed By: #### [id number], [id number] ####[facility] [address] [place], [place] [address]EYS/Rh History Checkon 03-13-2024 ABO/Rh History CheckPatient discharged priorFayette County [facility] Hospital Comment on above:Performed By: #### [id number], [id number], [id number] ####[facility] [address] [place], [place] [address]NUJZ on 98-82-8069PSIC Gel InterpNegativeFayette County Memorial HospitalComment on above:Performed By: #### [id number], [id number], [id number] ####[facility] [address] [place], [place] [address]W hCG Qualon 81-05-7258Gfuv HCG ( test) QlNegativeFayette County Memorial Hospital Comment on above:Performed By: #### [id number], [id number], [id number], [id number], 9172720, 0007724 ####[facility] [address] [place], [place] [address]YBIEG BANKOrdered By: Scarlet Lindquist on 30-29-1609RVO/Rh InterpPositiveInvalid Interpretation CodeS[facility] BB Subsection ABSC Gel InterpNegative (03/13/24 6:53 PM)NormalSOU[facility]WE[facility] BB SubsectionBMPon 59-61-6487Sbawe gap [Moles/Vol]16 mmol/LNormal6-16[facility]igh HospitalComment on above:Performed By: #### 74294533, 6124811, 7084615, 1147402, 9409722, 04252559, 85202743, 9612308, 0853151 ####[facility] [address], [place] [address]Hdujljv [Mass/Vol]10.8 mg/dLNormal8.9-11.1FSelect [facility]ty [facility] Comment on above:Performed By: #### 05200925, 8947963, 6265987, 7855172, 2160113, 96221017, 70796122, 1662377, 9512656 ####[facility] [address] [place] [place], [place] [address]Bfcsculr [Moles/Vol]105 mmol/LNormal 101-111[facility]igh HospitalComment on above:Performed By: #### 33070641, 5848615, 6916804, 0696351, 8688729, 81870185, 95518247, 5500642, 2761600 ####[facility] [address] [place], [place] [address]SA9 [Moles/Vol]25 mmol/TWjhccg03-26DaegpbGlenbeigh HospitalComment on above: Performed By: #### 05357501, 4237233, 4092142, 8276039, 8865866, 33517285, 45104091, 6661911, 1838767 ####[facility] [address] [place], [place] [address]Gkgjjsilvw [Mass/Vol]0.9 mg/dLNormal0.5-1.3FSelect Medical Specialty Hospital - [facility] NorthComment on above:Performed By: #### 64508299, 3656538, 2912685, 5982667, 9140571, 25868558, 10465016, 5753574, 8326697 ####[facility] [address] [place], [place] [address]Zzcrrgh [Mass/Vol]100 mg/kKCmhynn46-522FkgpcnGlenbeigh HospitalComment on above:Performed By: #### 91421233, 0280493, 4771939, 0547651, 9201149, 86777836, 26070676, 7026206, 0663004 ####[facility] [address] [place] [address]Jlrybskni [Moles/Vol]3.3 mmol/LLow3.5-5.3Fisher [facility] Krieger InstituteComment on above:Performed By: #### 47348309, 8294661, 9552294, 3852458, 6791262, 60529772, 41239830, 1259561, 1683777 ####Saeed [address] [address]Fycste [Moles/Vol]143 mmol/LNormal 135-145G[facility]igh HospitalComment on above:Performed By: #### 38853070, 4716847, 8097046, 4344505, 9548845, 53669187, 44391496, 5566001, 7617375 ####[facility] [address] [place] [address]Widu nitrogen [Mass/Vol]24 mg/dLHigh5-21G[facility]igh HospitalComment on above: Performed By: #### 71160056, 8487807, 5373058, 8671957, 5588358, 55206919, 69585111, 4189639, 5695388 ####[facility] [address] [place] [address]Bsbv nitrogen/Creatinine [Mass ratio]27 No Units Jquw08-75CsnmbyGlenbeigh HospitalComment on above:Performed By: #### 59517168, 6396651, 6312045, 4300339, 2582378, 83421416, 78116470, 1506071, 2701137 ####[address] [address]Dkpka Bank ID#on [id number] Interpretation CodeGlenbeigh HospitalComment on above:Performed By: #### 9667936, 47279461, 38388482, 16444248 ####[address] [address]QPM w/ Auto Diffon 62-72-4823Idlzynujt/100 WBC (Bld)0.4 % Normal0.0-2.0[facility]igh HospitalComment on above:Performed By: #### 73052268, 6238569, 0905691, 9514435, 0731658, 46279112, 10742202, 3954030, 5415095 ####[address] [address]Nlnzyqxhm/Leukocytes Auto (Bld) [Pure # fraction]0.1 E9/LNormal0.0-0.2 [facility] HospitalComment on above:Performed By: #### 39672602, 6024816, 6233913, 8953811, 9952728, 72194028, 53672256, 1592754, 9912130 ####[address] [address] Eosinophils (Bld) [#/Vol]0.0 E9/LNormal0.0-0.5FSelect Medical Specialty Hospital - [facility] NorthComment on above:Performed By: #### 65084584, 3654304, 5853964, 0106628, 2289484, 06348347, 12312898, 9810727, 0262426 ####[address] [address]Ojqdqvvwsli/100 WBC (Bld)0.1 %Normal 0.0-8.0[facility]igh HospitalComment on above:Performed By: #### 24627811, 7623449, 8206847, 9160093, 6719044, 81813800, 85661085, 4747153, 6594173 ####Saeed [address] [address] Erythrocyte distribution width (RBC) [Ratio]14.4 %High10.9-14.2FSelect Medical Specialty Hospital - [facility] NorthComment on above:Performed By: #### 81944076, 6620342, 4317328, 3784343, 4068518, 22609572, 47262756, 7714354, 6335377 ####[address] [address]Bjuvujwrya (Bld) [Volume fraction]42.5 %Ehowcq65.0-46.0[facility]igh HospitalComment on above: Performed By: #### 86123774, 1310756, 1037382, 0601294, 1905119, 38398311, 93435457, 1712344, 5499703 ####[address] [address]Jjjusbjvvr (Bld) [Mass/Vol]14.0 g/rETpxljq86.0-16.0 [facility] HospitalComment on above:Performed By: #### 87764401, 5400962, 9360375, 0730653, 0695874, 16734727, 82218091, 8327552, 9645948 ####[address] [address] Lymphocytes (Bld) [#/Vol]2.3 E9/LNormal1.0-4.0[facility] HospitalComment on above:Performed By: #### 72225073, 7141805, 8455184, 8188202, 8128835, 45487708, 77280531, 4481510, 7178296 ####[address] [address]Akxnvlvavhf/100 WBC (Bld)11.8 %Low 14.0-50.0[facility]igh HospitalComment on above:Performed By: #### 16488888, 5435368, 6305299, 7332713, 4594035, 83095897, 45841386, 5533502, 9824813 ####[facility] [address] [place], [place] [address]VGI (RBC) [Entitic mass]27.6 inMfjjam15.0-34.0[facility] Comment on above:Performed By: #### 73392260, 2949200, 4741059, 9213776, 0491534, 54691127, 02195539, 9788028, 6716022 ####Saeed [address] [address]NNCR (RBC) [Mass/Vol]32.9 g/dLNormal 31.4-36.0[facility] HospitalComment on above:Performed By: #### 79686656, 0491825, 8338837, 5759385, 6004516, 00736563, 38723381, 9257553, 8506142 ####Saeed [address] [address]LUV (RBC) [Entitic vol]83.8 fYEbbhqj14.0-100.0[facility] Comment on above:Performed By: #### 65752793, 3154321, 7382896, 7300717, 3492165, 93783283, 35360028, 6143033, 5686816 ####Saeed [address] [address]Nrtgftubq (Bld) [#/Vol]1.4 E9/LHigh 0.2-1.0[facility] HospitalComment on above:Performed By: #### 22633957, 6459338, 0629702, 2430368, 9445419, 83062511, 50827668, 8487039, 3836590 ####[address] [address] Neutrophils (Bld) [#/Vol]15.5 E9/LHigh2.0-7.5FSelect Medical Specialty Hospital - [facility] NorthComment on above:Performed By: #### 82560327, 6672371, 2415994, 0711052, 9465940, 44539846, 78201871, 1691639, 8272467 ####[place] [place], [place] [address]Rtmnuzradwc/100 WBC (Bld)80.6 %High 36.0-75.0[facility] HospitalComment on above:Performed By: #### 72341624, 6971828, 8677995, 7493522, 1923845, 85976931, 17680346, 1712680, 4683778 ####[address] [address]Djvbwtkl mean volume (Bld) [Entitic vol]8.4 fLNormal6.4-10.8[facility] HospitalComment on above:Performed By: #### 50276327, 1885354, 2023482, 0931931, 1156828, 02304008, 35764294, 6795852, 3368315 ####[address] [address]Oxpkegrxo (Bld) [#/Vol]356.0 E9/EPfstgv549.0-500.0[facility] HospitalComment on above:Performed By: #### 37190129, 5686839, 5862492, 3472010, 5517120, 90537941, 76520465, 8141912, 6165977 ####[address] [address]UFZ (Bld) [#/Vol]5.1 E12/LNormal4.3-5.9[facility] HospitalComment on above:Performed By: #### 73178909, 7997588, 8440595, 9298440, 1195449, 63720841, 09714053, 6821496, 5800039 ####[address] [address]CUU corrected for nucl RBC Auto (Bld) [#/Vol]19.3 E9/LHigh4.0-11.0[facility] HospitalComment on above:Result Comment: Slide review performedPerformed By: #### 93338514, 7668990, 8930707, 1046740, 7093584, 49896805, 67299119, 5025536, 2251940 ####[facility] [address] [place], [place] [address]QCKIYQPXLYqtgnlp By: SYSTEM SYSTEM on 25-63-4699Fhqhvjb [Mass/Vol]5.4 g/dLHigh3.3 - 5.0 gm/dLRemisol Chem Albumin/Globulin [Mass ratio]1.8 {ratio}Normal1.1 - 2.2Remisol ChemALP [Catalytic activity/Vol]82 [iU]/aQexuim14 - 98 Int._Unit/LRemisol ChemALT No additional P-5'-P [Catalytic activity/Vol]44 [iU]/dNormal6 - 46 Int._Unit/L Remisol ChemAnion gap [Moles/Vol]16 mmol/LNormal6 - 16 mEq/LRemisol ChemAST [Catalytic activity/Vol]23 [iU]/dNormal5 - 43 Int._Unit/LRemisol ChemBilirubin [Mass/Vol]0.8 mg/dLNormal0.0 - 1.1 mg/dLRemisol ChemBilirubin.direct [Mass/Vol] 0.2 mg/dLNormal0.0 - 0.4 mg/dLRemisol ChemBilirubin.indirect [Mass or moles/Vol] 0.6 mg/dLNormal0.1 - 0.9 mg/dLRemisol ChemCalcium [Mass/Vol]10.8 mg/dLNormal8.9 - 11.1 mg/dLRemisol ChemChloride [Moles/Vol]105 mmol/PJoaxpy610 - 111 mmol/L Remisol ChemCO2 [Moles/Vol]25 mmol/LMckjns81 - 31 mmol/LRemisol ChemCreatinine [Mass/Vol]0.9 mg/dLNormal0.5 - 1.3 mg/dLRemisol LubngPYE28 mL/min/1.73 c6Utzycb >=59mL/min/1.73 l9Xuoefno ChemEthanol Lvlmg/dLNormal<=11mg/dLRemisol Chem Globulin (S) [Mass/Vol]3.0 g/dLNormal1.4 - 4.0 gm/dLRemisol ChemGlucose [Mass/Vol]100 mg/nKKomoag90 - 199 mg/dLRemisol ChemLactic Acid Lvl1.7 mmol/L Normal0.5 - 2.2 mmol/LRemisol ChemLipase [Catalytic activity/Vol]14 U/KHeaaso44 - 58 unit/LRemisol ChemPotassium [Moles/Vol]3.3 mmol/LLow3.5 - 5.3 mmol/LRemisol ChemProtein [Mass/Vol]8.4 g/dLHigh6.0 - 7.8 gm/dLRemisol ChemSodium [Moles/Vol] 143 mmol/PGlfrae332 - 145 mmol/LRemisol ChemTroponin6.10 pg/mLLow10.10 - 27.10 [...] - 21 mg/dLRemisol ChemUrea nitrogen/Creatinine [Mass ratio]27 mg/wpFjyd29 - 20Remisol ChemCOAGULATION Ordered By: Virginia Mccain on 55-24-6443fCFQ Coag (PPP) [Time]32.8 aSdlrlx05.1 - 36.5 second(s)[facility] Auto CoagComment on above:Interpretive Data: Parameter 15 days - 4 weeks 1 - 5 months 6 - 11 months 1 - 5 years 6 - 10 years 11 - 17 years PTT Mean: 35.4 (27.6-45.6) Mean: 33.5 (24.8-40.7) Mean: 32.4 (25.1-40.7) Mean: 31.6 (24.0-39.2) Mean: 31.6 (26.9-38.7) Mean: 31.0 (24.6-38.4) Pediatric Reference ranges were obtained from a study by [facility], et al. prepared from 1437 samples obtained at 7 different centers using the same coagulation reagent and instrumentation as [facility]. Currently there are no coagulation studies available worldwide for children to 14 days, andno normal ranges. Heparin therapeutic range (represented by Anti-Factor Xa activity of 0.2 - 0.4 U/mL) corresponds to PTT of 56.6 - 109.0 sec.INR Coag (PPP) [Relative time]1.11 {INR}Invalid Interpretation CodeSOU[facility] Auto CoagComment on above:Interpretive Data: INR results are specifically intended to assess patients stabilized on long-term Anticoagulation therapy suggested INR s Less Intensive Anticoagulation 2.0 3.0 Conventional Range 3.0 4.5PT Coag (PPP) [Time]12.4 sNormal9.4 - 12.5 second(s) [facility] Auto CoagComment on above:Interpretive Data: 15 days [...] the same coagulation reagent and instrumentation as [facility]. Currently there are no coagulation studies available worldwide for children to 14 days, andno normal ranges.Consent for Treatmenton 79-29-9442Zohncnh for Treatment [id number]#1.00TIFCincinnati Children's Hospital Medical CenterDischarge Instructionson 21-68-8510Uflucfrgc Instructions [id number]#1.00TIFSelect [facility] Specialty [facility] [place] Clinical Summaryon 93-02-3100UR Clinical Summary [address] [address] ED Clinical Summary Person Information Name: PILI PARIKH/Nathan Age: 19 Years : 2005 Sex: Female Language: Taiwanese PCP: MODESTA ARCHIBALD Marital Status: Single Visit [...] 03/13/2024 22:27:59 03/13/2024 22:27:59 ADDRESS: [address] [id number] PHYS DOC NOTES: MEDICAL INFORMATION: Prescriptions Given: New Medications [id number], [address], [place] [id number], [phone] acetaminophen-hydrocodone ([place] 325 mg-5 mg oral tablet) 1 Tablets [...] EDUCATION INFORMATION: Instructions: Nausea and Vomiting, Adult, Oilz-gj-Dsgz; Muscle Strain, Ybqr-tr-Qmrk Follow up: With: Address: When: MODESTA ARCHIBALD [address] [place], [place] [id number] [phone] Business (1) In 3 days 03/16/2024 Comments: [...] (nausea and vomiting)[facility] CenterED Note-Physicianon 31-28-6213KK Note-PhysicianBasic Information Time Seen: Gasper Lang PA-C [...] 03/13/24 19:05:00 EDT, STA (more content not included)...[facility] HospitalComment on above:Result Comment: Electronically Signed By: Gasper Lang PA-C\.br\Date and Time Signed: 03/13/2418:45 EDT\.br\Electronically Co-Signed By: Isaak Francis DO\.br\Date and Time Co-Signed: 03/13/24 22:19 EDT\.br\Electronically Co-Signed By: Femi Roman DO\.br\Date and Time Co-Signed: 03/16/2407:37 EDTED Patient Education Noteon 99-20-6865HM Patient Education NoteGastroenterology Nausea and Vomiting, Adult [...] ? Low-calorie sports drinks. ? Eat bland, ptij-rd-kamxax foods in small amounts as you are able, such as: ? Bananas. ? Applesauce. ? Rice. ? Low-fat (lean) meats. ? Nimrod. ? Crackers. ? Avoid drinking fluids that have a lot of sugar or caffeine in them. This includes energy drinks, sports drinks, and soda. ? Avoid alcohol. ? Avoid spicy or fatty foods. General instructions ? Take ucsb-osb-mpmmnow and prescription medicines only as told by your doctor. ? Drink enough fluid to keep your pee (urine) pale yellow. ? Wash your hands often with soap and water for at least 20 seconds. If you cannot use soap and water, use hand design technology professor. ? Make sure that everyone in your [...] doctor about eating and drinking. ? Take aeyt-bhy-jynztlc and prescription medicines only as told by your doctor. ? Contact your doctor if your symptoms get worse or you have new symptoms. ? Keep all follow-up visits. This information is not intended to replace advice given to you by your health care provider. Make sure you discuss any questions you have with your health care provider. Document Revised: 05/21/2022 Document Reviewed: 05/21/2022 [employer] Patient Education ? 2022 [employer]. Orthopedics Muscle Strain A muscle strain, or [...] ? Protecting your m (more content not included)...[facility] Patient Summaryon 45-56-8702RT Patient Summary [place] [id number] Patient Discharge Instructions Person Information Name: PILI PARIKH Age: 19 Years Arrival Date: 03/13/2024 17:33:02 Discharge Diagnosis: 1:Fall down stairs; Abnormal CT scan, chest; Back strain; N&V (nausea and vomiting) Primary Care Physician: MODESTA ARCHIBALD Provider Information Primary Provider: Femi Roman DO Advanced Searchlight Operator:Gasper Lang PA-C The exam and treatment you received in the Emergency Department were for an urgent problem and are not intended as complete care. It is important that you follow up with a doctor, nurse practitioner,or physician?s executive assistant for ongoing care. If your [...] With: Address: When: MODESTA ARCHIBALD [address] [place], [place] [phone] Business (1) In 3 days 03/16/2024 Comments: [...] Patient Education Materials: Nausea and Vomiting, Adult, Jgka-tv-Rmnl; Muscle Strain, Rbtf-el-Szll A MESSAGE TO ALL PATIENTS REGARDING OPIOIDS PRESCRIPTION OPIOIDS: WHAT YOU NEED TO KNOW Prescription opioids can be used to help relieve ztbnexwx-ni-tlixdb pain and are often prescribed following a [...] your community drug take- back program or yourpharmSignaCert mail-back program, or flush them juan (more content not included)...[facility] Traumaon 00-13-8906NO Trauma [id number]#1.00TIFFNormalGlenbeigh HospitalEthanolon 23-77-7271Rvcbxyy Lvl<10Normal<=11[facility] Comment on above:Performed By: #### [id number] ####[facility] [address] [place], [place] [address]IPBUDUBDNPDipwlim By: SYSTEM SYSTEM on 54-37-0517Xmupjnpnu/100 WBC (Bld)0.4 %Normal0.0 - 2.0 %Remisol Heme Basophils/Leukocytes Auto (Bld) [Pure # fraction]0.1 E9/LNormal0.0 - 0.2 E9/L Remisol HemeEosinophils (Bld) [#/Vol]0.0 E9/LNormal0.0 - 0.5 E9/LRemisol Heme Eosinophils/100 WBC (Bld)0.1 %Normal0.0 - 8.0 %Remisol HemeErythrocyte distribution width (RBC) [Ratio]14.4 %High10.9 - 14.2 %Remisol HemeHematocrit (Bld) [Volume fraction]42.5 %Gqaozf55.0 - 46.0 %Remisol HemeHemoglobin (Bld) [Mass/Vol]14.0 g/mSRvicby28.0 - 16.0 gm/dLRemisol HemeLymphocytes (Bld) [#/Vol] 2.3 E9/LNormal1.0 - 4.0 E9/LRemisol HemeLymphocytes/100 WBC (Bld)11.8 %Low14.0 - 50.0 %Remisol HemeMCH (RBC) [Entitic mass]27.6 slVpcnho25.0 - 34.0 pgRemisol HemeMCHC (RBC) [Mass/Vol]32.9 g/bLXdwmbp49.4 - 36.0 gm/dLRemisol HemeMCV (RBC) [Entitic vol]83.8 zJUlcqfh02.0 - 100.0 fLRemisol HemeMonocytes (Bld) [#/Vol]1.4 E9/LHigh0.2 - 1.0 E9/LRemisol HemeMonocytes/100 WBC (Bld)7.1 %Normal4.0 - 14.0 % Remisol HemeNeutrophils (Bld) [#/Vol]15.5 E9/LHigh2.0 - 7.5 E9/LRemisol Heme Neutrophils/100 WBC (Bld)80.6 %High36.0 - 75.0 %Remisol HemePlatelet mean volume (Bld) [Entitic vol]8.4 fLNormal6.4 - 10.8 fLRemisol HemePlatelets (Bld) [#/Vol] 356.0 E9/FFxkfai022.0 - 500.0 E9/LRemisol HemeRBC (Bld) [#/Vol]5.1 E12/LNormal 4.3 - 5.9 E12/LRemisol HemeWBC corrected for nucl RBC Auto (Bld) [#/Vol]19.3 E9/LHigh4.0 - 11.0 E9/LRemisol HemeComment on above:Result Comment: Slide review performedHep Func Panelon 94-90-0138Hqvpknj [Mass/Vol]5.4 g/dLHigh3.3-5.0[facility] HospitalComment on above:Performed By: #### 98047448, 5244168, 2789465, 5943326, 9277442, 11593268, 22148984, 1394685, 3946724 ####[place] [place], [place] [address]Zeblbpl/Globulin (S) [Mass conc ratio]1.8Txwwmw1.1-2.2[facility] Krieger InstituteComment on above: Performed By: #### 04031004, 0189954, 1923997, 4995522, 6862125, 32117821, 61503812, 4806165, 8371496 ####[address] [place], [place] [address]KYZ [Catalytic activity/Vol]82 Int._Unit/LNormal 21-98[facility]igh HospitalComment on above:Performed By: #### 40680360, 0151736, 2114754, 7775166, 3375102, 09063256, 41496870, 8751345, 2773653 ####[facility] [address] [place], [place] [address]IWS No additional P-5'-P [Catalytic activity/Vol]44 Int._Unit/LNormal6-46[facility] HospitalComment on above:Performed By: #### 80393856, 9470294, 4892119, 6766764, 9553266, 20476801, 69224634, 1306674, 2002180 ####[facility] [address] [place] [address]UWK [Catalytic activity/Vol]23 Int._Unit/LNormal5-43[facility]igh HospitalComment on above:Performed By: #### 73113318, 7536091, 3673321, 0400668, 4949899, 14639475, 17470714, 4149766, 0982689 ####[facility] [address] [place], [place] [address]Zdnuroonw [Mass/Vol]0.8 mg/dLNormal0.0-1.1[facility]rieger InstituteComment on above:Performed By: #### 59319793, 5483194, 9403126, 7448728, 0053723, 80868140, 76252852, 4462864, 0874142 ####Christophe [address] [address]Voabofyin.direct [Mass/Vol]0.2 mg/dLNormal0.0-0.4[facility]rieger InstituteComment on above: Performed By: #### 72827011, 7079976, 2270924, 0661672, 9360159, 25958806, 19371205, 3838803, 7580668 ####Christophe [address] [address]Uixmjqzvf.indirect [Mass or moles/Vol]0.6 mg/dL Normal0.1-0.9[facility]igh HospitalComment on above:Performed By: #### 27417743, 2202964, 0954827, 8644031, 4741372, 05852454, 97713223, 1867732, 4678163 ####[facility] [address] [place] [address]Efikclfm (S) [Mass/Vol]3.0 g/dLNormal1.4-4.0[facility] Comment on above:Performed By: #### 90760720, 5878976, 5633306, 2993575, 7894120, 21924578, 45698101, 2233765, 6852957 ####[facility] [address] [place] [address]Ldjchga [Mass/Vol]8.4 g/dLHigh6.0-7.8 [facility] HospitalComment on above:Performed By: #### 61242142, 1277822, 7225429, 0076833, 0076395, 95406788, 96506721, 8411365, 7708036 ####[facility] [address] [place] [address] Lactic Acidon 38-88-8355Gqfmuf Acid Lvl1.7 mmol/LNormal0.5-2.2[facility]rieger InstituteComment on above:Performed By: #### 38060023, 2684674, 6366857, 9004446, 8184022, 34524434, 85887553, 1260530, 0014416 ####[facility] [address] [place], [place] [address]Pvkxfl Levelon 03-13-2024 Lipase [Catalytic activity/Vol]14 U/VVdutma81-20EpprvhGlenbeigh Hospital Comment on above:Performed By: #### 11701222, 6201279, 1667782, 1536772, 5744891, 05999691, 27997834, 9300105, 5097459 ####[facility] [address] [place], [place] [address]Cyfwxuj Recordon 08-58-2631Ygajqtj [id number]#1.00TIFFNormalGlenbeigh HospitalMonitor [id number]#1.00TIFF NormalGlenbeigh HospitalPT & PTTon 07-89-9313iYNY Coag (PPP) [Time]32.8 second(s)Iodzdp08.1-36.5[facility]rieger InstituteComment on above:Result Comment: Parameter 15 days - [...] the same coagulation reagent and instrumentation as [facility]. Currently there are no coagulation studies available worldwide for children to 14 days, andno normal ranges. Heparin therapeutic range (represented by Anti-Factor Xa activity of 0.2 - 0.4 U/mL) corresponds to PTT of 56.6 - 109.0 sec.Performed By: #### 00716778, 0127066, 6611596, 2412027, 8073883, 56640416, 39873802, 9808130, 3468447 ####[facility] [address] [place], [place] [address]GUL Coag (PPP) [Relative time]1.11 {INR}Invalid Interpretation CodeFisher Kennedy Krieger InstituteComment on above:Result Comment: INR results are specifically intended to assess patients stabilized on long-term Anticoagulation therapy suggested INR?s ?Less Intensive Anticoagulation? 2.0 ? 3.0 Conventional Range 3.0 ? 4.5Performed By: #### 50203742, 6307200, 3017084, 4760383, 4174972, 44684625, 01374060, 4355848, 0619733 ####[facility] [address] [place], [place] [address]KR Coag (PPP) [Time]12.4 second(s)Normal9.4-12.5Fisher [facility] Krieger InstituteComment on above:Result Comment: 15 days - 4 weeks 1 - 5 months 6 -11 months 1-5 years 6-10 years 11 -17 years Mean: 11.2 (9.5-12.6) Mean: 11.0 (9.7-12.8) Mean: 11.0 (9.8-13.0) Mean: 11.3 (9.9-13.4) Mean: 11.7 (10.0-14.6) Mean: 11.8 (10.0 - 14.1) Pediatric Reference ranges were obtained from a study by [facility], et al. prepared from 1437 samples obtained at 7 different centers using the same coagulation reagent and instrumentation as [facility]. Currently there are no coagulation studies available worldwide for children to 14 days, andno normal ranges.Performed By: #### 04668132, 6002514, 5070609, 2153287, 7516435, 74203223, 33004736, 3638032, 2567223 ####[facility] [address] [place], [place] [address]Mnk-Yvkqpav Noteon 28-48-2316Zyk- Arrival NotePre-Arrival Summary Name: , [facility] Current Date: 03/13/2024 17:34:24 EDT Gender: Female Date of : Age: 19 Pre-Arrival Type: EMS ETA: 03/13/2024 17:59:00 EDT Primary Care Physician: Presenting Problem: fall down 10 stairs Pre-Arrival User: Payal Robison RN Referring Source: Location: Completion Date/Time: 03/13/2024 17:29:00 [facility] Emergency Department Pre-Hospital Report Form Vital Signs: 127/83; 66; 17; 96%; GCS 15 Pre-Hospital Report: Treatment in Route: C-COLLAR Response to Treatment: Misc. Issues:[facility] HospitalPrescriptions/Work Noteson 91-23-6390Dxkmtxpuvwtlb/Work Notes [id number]#1.00[facility] HospitalRAD - Preliminary Cat Scan Reporton [id number] - Preliminary Cat Scan [id number]#1.00[facility] HospitalEROLOGYOrdered By: Virginia Mccain on 60-77-4076Ukqc HCG ( test) QlNegative (03/13/24 6:53 PM)NormalSOU[facility] Man SeroTroponinon 44-17-7379Dyzxrgvi6.10 pg/mLLow 10.10-27.10[facility]igh HospitalComment on above:Result Comment: The 95% CI (Confidence Interval) PPV (Positive Predictive Value) for myocardial infa rction in females is 38 pg/mL, in males 51 pg/mL. The results should be used in conjunction with clinical conditions of myocardial infarction. (Access High Sensitivity Troponin I Instructions For Use, [employer] [place], June 2018)Performed By: #### [id number], [id number], [id number], [id number], [id number], [id number], [id number], [id number], [id number] ####[facility] [address] [place], [place] [address]zJLIgm 46-70-9854kOOR61 mL/min/1.73 t0Viziqf>=59Glenbeigh HospitalComment on above:Order Comment: qns to run. phlebotomists notified of recollect by message. [email or web address] 03/13/2024 18:28:21 EDTOrder added by Discern Expert.Performed By: #### [id number], [id number], [id number], [id number], [id number], [id number], [id number], [id number], [id number] ####[facility] [address] [place], [place] [address]Bnlxjqbkjan Screen Ql (U) Ordered By: Familia Christian on 29-57-9504Ulagjpeczfrh Ql (U)NegativeNegMary Rutan HospitalBarbiturates [Presence] in Urine by Screen methodOrdered By: Familia Christian on 54-24-9538Vxthllgipsdk Screen Ql (U)NegativeNegMary Rutan HospitalBenzodiazepines Screen Ql (U)Ordered By: Familia Christian on 92-59-7586Mclrcimymkvrplk Ql (U)NegativeNegMary Rutan HospitalBenzoylecgonine [Presence] in Urine by Screen methodOrdered By: Familia Christian on 07-67-7721Ranronxartxqxzl Screen Ql (U)NegativeNegMary Rutan HospitalCannabinoids [Presence] in Urine by Screen methodOrdered By: Familia Christian on 07-88-2328Gokjsfrmsphz Screen Ql (U)PositiveNegativeZanesville City HospitalComment on above:These are unconfirmed results and should not be used for legal purposes. Drug Cut-Off Concentration: AMPH 1000 ng/mL NIKOLAS 200 ng/mL SHRAVAN 200 ng/mL COCM 300 ng/mL OP 300 ng/mL PCP 25 ng/mL THC 20 ng/mLHCG ( test) IA.rapid Ql (U)Ordered By: Familia Christian on 06-57-0979ATI ( test) Ql (U)NegativeZanesville City HospitalOpiates [Presence] in Urine by Screen methodOrdered By: Familia Christian on 18-52-4154Okszurj Screen Ql (U)NegativeNegativeZanesville City HospitalPhencyclidine Screen Ql (U)Ordered By: Familia Christian on 85-23-5130Xcahuzeuylmod Ql (U)Negative NegativeZanesville City HospitalCOVID-19 Detected/Not DetectedOrdered By: Modesta Chand on 19-18-0611KLOF-CoV-2 (COVID-19) RNA JANAK+non-probe Ql (Nph)Not detectedNot DetectMercy Health Springfield Regional Medical CenterComment on above: This is a duplicate RP2.1 COVID (PCR) result to be used for statistical tracking purpose only.Respiratory pathogens DNA and RNA panel - Nasopharynx by JANAK with non-probe detectionOrdered By: Modesta Chand on 66-71-7986Nkluetdgauk pathogens DNA and RNA panel JANAK+non-probe (Nph)[facility] Basophils Auto (Bld) [#/Vol]Ordered By: Anette Stout on 65-51-0709Hcgnzxqqj (Bld) [#/Vol]0.0 10*3/uL0.0-0.1FKettering Health MiamisburgBasophils/100 WBC Auto (Bld)Ordered By: Anette Stout on 92-02-4080Kyusfbjtu/100 WBC (Bld)0.4 %. [facility] City HospitalEosinophils Auto (Bld) [#/Vol]Ordered By: Anette Stout on 14-48-9094Tkavpcdotea (Bld) [#/Vol]0.7 10*3/uL0.0-0.7FKettering Health MiamisburgEosinophils/100 WBC Auto (Bld)Ordered By: Anette Stout on 30-08-7247Uqejcemdvof/100 WBC (Bld)5.5 %.[facility] Erythrocyte distribution width Auto (RBC) [Ratio]Ordered By: Anette Stout on 87-75-6152Aeanormcwyj distribution width (RBC) [Ratio]13.5 %11.9-15.3FKettering Health MiamisburgEstimated glomerular filtration rate (GFR) non- AmericanOrdered By: Anette Stout on 25-22-4132SUX/1.73 sq M.predicted among non- blacks MDRD (S/P/Bld) [Vol rate/Area]> 60 mL/MinZanesville City HospitalHematocrit Auto (Bld) [Volume fraction]Ordered By: Anette Stout on 24-65-3054Uxdbwgypkl (Bld) [Volume fraction]41.5 %36.0-46.0[facility] City HospitalHemoglobin [Mass/volume] in BloodOrdered By: Anette Stout on 09-61-1873Lnzkrlobff (Bld) [Mass/Vol]14.0 g/dL12.0-16.0Z[facility] City HospitalLeukocytes [#/volume] corrected for nucleated erythrocytes in Blood by Automated counOrdered By: Anette Stout on 98-01-7392LNV corrected for nucl RBC Auto (Bld) [#/Vol]12.1 10*3/uL4.5-13.5FKettering [facility] Mi[facility]burg Lymphocytes Auto (Bld) [#/Vol]Ordered By: Anette Stout on 28-35-2734Tudwrhsuxjr (Bld) [#/Vol]2.5 10*3/uL1.20-4.8[facility] City HospitalLymphocytes/100 WBC Auto (Bld)Ordered By: Anette Stout on 93-22-7018Cfolockxivp/100 WBC (Bld) 20.9 %.[facility] City HospitalMCH Auto (RBC) [Entitic mass]Ordered By: Anette Stout on 45-78-9890RYX (RBC) [Entitic mass]28.8 pg25.0-35.0Z[facility] City HospitalMCHC Auto (RBC) [Mass/Vol]Ordered By: Anette Stout on 15-40-6981XSOV (RBC) [Mass/Vol]33.7 g/dL31.0-37.0Z[facility] City HospitalMCV Auto (RBC) [Entitic vol]Ordered By: Anette Stout on 27-35-5373BER (RBC) [Entitic vol]85.5 sP50-646LbnwutwdvZanesville City HospitalMonocytes Auto (Bld) [#/Vol]Ordered By: Anette Stout on 99-39-1789Aampboqpu (Bld) [#/Vol]0.9 10*3/uL 0.1-1.00Z[facility] City HospitalMonocytes/100 WBC Auto (Bld)Ordered By: Anette Stout on 63-28-5789Selpwbtiz/100 WBC (Bld)7.5 %.[facility] HospitalNeutrophils Auto (Bld) [#/Vol]Ordered By: Anette Stout on 55-40-4097Iuktjnqtlrq (Bld) [#/Vol]8.0 10*3/uL1.2-7.7FKettering Health MiamisburgNeutrophils/100 WBC Auto (Bld)Ordered By: Anette Stout on 01-07-2023 Neutrophils/100 WBC (Bld)65.7 %.[facility] HospitalNo Panel InformationOrdered By: Anette Stout on 01-07-2023> 60 mL/MinZanesville City Hospital113.92Z[facility] City HospitalNucleated erythrocytes [Presence] in Blood by Automated countOrdered By: Anette Stout on 01-07-2023 Nucleated RBC Auto Ql (Bld)0.1 /100{WBC}0-0.5FK[facility] Platelet mean volume Auto (Bld) [Entitic vol]Ordered By: Anette Stout on 91-57-5313Snpwsfqh mean volume (Bld) [Entitic vol]8.6 fL6.3-10.7FKettering Health MiamisburgPlatelets Auto (Bld) [#/Vol]Ordered By: Anette Stout on 06-64-1450Qhvnxdukj (Bld) [#/Vol]222 10*3/aD782-125OxlgmhjhmZanesville City HospitalRBC Auto (Bld) [#/Vol]Ordered By: Anette Stout on 63-04-2175KKO (Bld) [#/Vol]4.85 10*6/uL4.10-5.10[facility] Centererum or plasma anion gap determinationOrdered By: Anette Stout on 10-73-4210Muuht gap [Moles/Vol]N/AFNationwide Children's Hospitalerum or plasma calcium measurement (mass/volume)Ordered By: Anette Stout on 34-97-3860Kxvswlv [Mass/Vol] 8.5 mg/dL8.2-10.2FNationwide Children's Hospitalerum or plasma chloride measurement (moles/volume)Ordered By: Anette Stout on 04-22-7953Ukwfwvpf [Moles/Vol]103 mmol/C97-412NeyfdiphlCincinnati VA Medical Centererum or plasma creatinine measurement with calculation of estimated glomerular filtrOrdered By: Anette Stout on 06-74-6280Xbvbwglzdi and Glomerular filtration rate.predicted panel (S/P/Bld)0.77 mg/dL0.44-1.03[facility] Centererum or plasma glucose measurement (mass/volume)Ordered By: Anette Stout on 01-07-2023 Glucose [Mass/Vol]90 mg/zC45-097EwpseslyfCincinnati VA Medical Centererum or plasma potassium measurement (moles/volume)Ordered By: Eliana Bautista on 01-07-2023 Potassium [Moles/Vol]3.2 mmol/L3.5-5.1FNationwide Children's Hospitalerum or plasma sodium measurement (moles/volume)Ordered By: Anette Stout on 01-07-2023 Sodium [Moles/Vol]134 mmol/I713-086EftcwtxosCincinnati VA Medical Centererum or plasma total carbon dioxide measurement (moles/volume)Ordered By: Anette Stout on 75-02-6686SN4 [Moles/Vol]23.4 mmol/L22.0-30.0[facility] Serum or plasma urea nitrogen measurement (mass/volume)Ordered By: Anette Stout on 85-99-2848Qzmi nitrogen [Mass/Vol]8 mg/dL9-23Z[facility] City HospitalWBC Auto (Bld) [#/Vol]Ordered By: Anette Stout on 90-52-1134VFA (Bld) [#/Vol]12.1 10*3/uL4.5-13.5FKet[facility] Health MiamisburgAmphetamine Screen Ql (U)Ordered By: Anette Stout on 88-92-6817Rggsjixzsadb Ql (U)NegativeNegative [facility] HospitalAutomated erythrocytes count in urine sediment (number/area)Ordered By: Rd Brown on 97-74-0604ORZ Auto (Urine sed) [#/Area] None seen [HPF]0-4FK[facility] Health MiamisburgAutomated leukocytes count in urine sediment (number/area)Ordered By: Rd Brown on 03-34-4485UMW Auto (Urine sed) [#/Area]20-49 [HPF]0-4FKettering Health MiamisburgAutomated urine hyaline casts count (number/volume)Ordered By: Rd Brown on 01-06-2023 Hyaline casts Auto (U) [#/Vol]None seen [LPF]0-1FKettering Health MiamisburgBarbiturates [Presence] in UrineOrdered By: Anette Stout on 01-06-2023 Barbiturates Ql (U)NegativeNegativeZanesville City HospitalBasophils Auto (Bld) [#/Vol]Ordered By: Rd Brown on 73-11-1410Fjqywdvsb (Bld) [#/Vol] 0.0 10*3/uL0.0-0.1FK[facility] MiamisburgBasophils/100 WBC Auto (Bld) Ordered By: Rd Brown on 42-33-3375Thlhhgtcs/100 WBC (Bld)0.3 %.[facility] HospitalBenzodiazepines [Presence] in UrineOrdered By: Anette Stout on 88-84-1211Jyripcreacapncu Ql (U)NegativeNegativeZanesville City HospitalBilirubin Test strip Ql (U)Ordered By: Rd Brown on 01-06-2023 Bilirubin Ql (U)NegativeNegativeZanesville City HospitalBody fluid albumin measurement (mass/volume)Ordered By: Rd Brown on 53-26-6942Szwhmba (Body fld) [Mass/Vol]4.9 g/dL3.2-5.5FK[facility] Cannabinoids [Presence] in Urine by Screen methodOrdered By: Anette Stout on 00-04-3510Pdtggyzyqmdn Screen Ql (U)PositiveNegativeZanesville City HospitalCasts typing in urine sediment by light microscopyOrdered By: Rd Brown on 93-95-5133Xiccx LM Nom (Urine sed)None seen [LPF]None SeenZanesville City HospitalColor Auto (U)Ordered By: Rd Brown on 72-01-7920Xckwe (U) YellowYellowZanesville City HospitalEosinophils Auto (Bld) [#/Vol] Ordered By: Rd Brown on 90-59-6300Mfhrencqlbs (Bld) [#/Vol]0.4 10*3/uL 0.0-0.7FKettering Health MiamisburgEosinophils/100 WBC Auto (Bld)Ordered By: Rd Brown on 48-30-1224Dtifmizesuv/100 WBC (Bld)2.3 %.[facility] HospitalErythrocyte distribution width Auto (RBC) [Ratio]Ordered By: Rd Brown on 55-17-9441Gksaeottsbz distribution width (RBC) [Ratio]13.5 % 11.9-15.3FKettering Health MiamisburgEstimated glomerular filtration rate (GFR) non- AmericanOrdered By: Rd Brown on 60-32-3448CFQ/1.73 sq M.predicted among non-blacks MDRD (S/P/Bld) [Vol rate/Area]> 60 mL/MinZanesville City HospitalGlobulin Calc (S) [Mass/Vol]Ordered By: Rd Brown on 89-82-1197Bsznswkq (S) [Mass/Vol]2.9 g/dLZanesville City HospitalHCG ( test) IA.rapid Ql (U)Ordered By: Rd Brown on 77-46-0912XUE ( test) Ql (U)NegativeZanesville City HospitalHematocrit Auto (Bld) [Volume fraction]Ordered By: Rd Brown on 15-15-3169Qcykdwaacs (Bld) [Volume fraction]48.3 %36.0-46.0[facility] HospitalHemoglobin [Mass/volume] in BloodOrdered By: Rd Brown on 08-64-0927Lavcdhaufs (Bld) [Mass/Vol]16.2 g/dL12.0-16.0[facility] HospitalKetones Auto test strip (U) [Mass/Vol]Ordered By: Rd Brown on 59-08-8549Qomzeac (U) [Mass/Vol] 4+NegativeZanesville City HospitalLeukocytes [#/volume] corrected for nucleated erythrocytes in Blood by Automated counOrdered By: Rd Brown on 99-49-9091BMQ corrected for nucl RBC Auto (Bld) [#/Vol]17.7 10*3/uL4.5-13.5 [facility] HospitalLymphocytes Auto (Bld) [#/Vol]Ordered By: Rd Brown on 61-29-0738Hxihdszgutl (Bld) [#/Vol]3.5 10*3/uL1.20-4.8[facility] HospitalLymphocytes/100 WBC Auto (Bld)Ordered By: Rd Brown on 69-12-4626Tapcpuhsgyw/100 WBC (Bld)19.9 %.[facility] Auto (RBC) [Entitic mass]Ordered By: Rd Brown on 46-28-0547JFK (RBC) [Entitic mass]28.7 pg25.0-35.0[facility] HospitalMCHC Auto (RBC) [Mass/Vol]Ordered By: Rd Brown on 49-88-3976AQOQ (RBC) [Mass/Vol]33.6 g/dL 31.0-37.0[facility] HospitalMCV Auto (RBC) [Entitic vol]Ordered By: Rd Brown on 86-92-3755VEB (RBC) [Entitic vol]85.4 pU54-456NzsgcejrwZanesville City HospitalMonocyte distribution width [Entitic volume] in Blood by AutomatedOrdered By: Rd Brown on 32-56-5696Djyllmms distribution width Auto (Bld) [Entitic vol]15.43 %0.00-20.00[facility] HospitalMonocytes Auto (Bld) [#/Vol]Ordered By: Rd Brown on 44-14-1627Gvfsqtvkz (Bld) [#/Vol] 1.3 10*3/uL0.1-1.00[facility] HospitalMonocytes/100 WBC Auto (Bld) Ordered By: Rd Brown on 78-28-4760Bhlwtsxcd/100 WBC (Bld)7.4 %.[facility] HospitalNeutrophils Auto (Bld) [#/Vol]Ordered By: Rd Brown on 91-45-0137Dzquullyzyz (Bld) [#/Vol]12.4 10*3/uL1.2-7.7FKettering Health MiamisburgNeutrophils/100 WBC Auto (Bld)Ordered By: Rd Brown on 49-11-6264Xilkxuyxdqj/100 WBC (Bld)70.1 %.[facility] Nitrite Test strip Ql (U)Ordered By: Rd Brown on 24-57-3327Sjxallw Ql (U) NegativeNegativeZanesville City HospitalNo Panel InformationOrdered By: Anette Stout on 87-70-6203SvsoatyaTmwtmzqdNflktxgwlMary Rutan HospitalNo Panel InformationOrdered By: Rd Brown on 01-06-2023> 60 mL/MinZanesville City Hospital31.0 U/G31-38MbmmfaqxxZanesville City Hospital102.00 [facility] HospitalNucleated erythrocytes [Presence] in Blood by Automated countOrdered By: Rd Brown on 88-85-0644Nbcnbrknf RBC Auto Ql (Bld) 0.1 /100{WBC}0-0.5FKettering Health MiamisburgPhencyclidine Screen Ql (U) Ordered By: Anette Stout on 61-81-2893Vwmsggfvzppqg Ql (U)NegativeNegative [facility] HospitalPlatelet mean volume Auto (Bld) [Entitic vol] Ordered By: Rd Brown on 79-76-1125Lncxjdoh mean volume (Bld) [Entitic vol] 8.5 fL6.3-10.7FKettering Health MiamisburgPlatelets Auto (Bld) [#/Vol] Ordered By: Rd Brown on 82-43-2121Muxhfsgem (Bld) [#/Vol]296 10*3/eM069-105 [facility] HospitalProtein Auto test strip (U) [Mass/Vol]Ordered By: Rd Brown on 43-34-8854Voiubrz (U) [Mass/Vol]100 mg/dLNegativeZanesville City HospitalProtein [Mass/volume] in Serum or PlasmaOrdered By: Rd Brown on 66-22-3131Nlgeuvj [Mass/Vol]7.8 g/dL6.1-7.9[facility] HospitalRBC Auto (Bld) [#/Vol]Ordered By: Rd Brown on 99-21-4800UJR (Bld) [#/Vol]5.65 10*6/uL4.10-5.10[facility] Centererum or plasma alanine aminotransferase measurement without P-5'-P (enzymatic activi Ordered By: Rd Brown on 48-48-0325LYJ No additional P-5'-P [Catalytic activity/Vol]20 U/K92-66HjsdreyhkCincinnati VA Medical Centererum or plasma albumin/globulin mass ratioOrdered By: Rd Brown on 01-06-2023 Albumin/Globulin [Mass ratio]1.7 {ratio}[facility] Centererum or plasma alkaline phosphatase measurement (enzymatic activity/volume)Ordered By: Rd Brown on 87-28-0376QZH [Catalytic activity/Vol]66 U/P36-35QxhvdvthqCincinnati VA Medical Centererum or plasma anion gap determinationOrdered By: Rd Brown on 83-30-3331Mfkgd gap [Moles/Vol]19.4 mmol/L6.0-15.0[facility] Centererum or plasma aspartate aminotransferase measurement (enzymatic activity/volume)Ordered By: Rd Brown on 20-18-4913FXB [Catalytic activity/Vol]20 U/M94-36HivpxdabnCincinnati VA Medical Centererum or plasma calcium measurement (mass/volume)Ordered By: Rd Brown on 46-94-0520Ytxmxpc [Mass/Vol]9.8 mg/dL8.2-10.2FNationwide Children's Hospitalerum or plasma chloride measurement (moles/volume)Ordered By: Rd Brown on 01-06-2023 Chloride [Moles/Vol]91 mmol/L99-112VdvythleyCincinnati VA Medical Centererum or plasma creatinine measurement with calculation of estimated glomerular filtr Ordered By: Rd Brown on 20-24-8416Lcqbjawffg and Glomerular filtration rate.predicted panel (S/P/Bld)0.86 mg/dL0.44-1.03[facility] Centererum or plasma glucose measurement (mass/volume)Ordered By: Rd Brown on 94-05-9598Akepsuv [Mass/Vol]80 mg/dC95-565VkhvpuecsZanesville City Hospital Serum or plasma potassium measurement (moles/volume)Ordered By: Rd Brown on 36-10-4716Kveciqtuw [Moles/Vol]2.7 mmol/L3.5-5.1FNationwide Children's Hospitalerum or plasma sodium measurement (moles/volume)Ordered By: Rd Brown on 21-21-7298Cwdzfw [Moles/Vol]132 mmol/A748-026IrtpphizlCincinnati VA Medical Centererum or plasma total bilirubin measurement (mass/volume)Ordered By: Rd Brown on 60-49-7480Wabybolyi [Mass/Vol]1.5 mg/dL0.3-1.2FNationwide Children's Hospitalerum or plasma total carbon dioxide measurement (moles/volume) Ordered By: Rd Brown on 05-67-2221CQ5 [Moles/Vol]24.3 mmol/L22.0-30.0 [facility] Centererum or plasma urea nitrogen measurement (mass/volume)Ordered By: Rd Brown on 30-23-8753Fkoq nitrogen [Mass/Vol]19 mg/dL9-23[facility] Centerpecific gravity Auto test strip (U) [Rel density]Ordered By: Rd Brown on 42-74-0154Swxxfdvq gravity (U) [Rel density]1.0271.001-1.030[facility] Medical Centerquamous epithelial cells detection in urine sediment by light microscopyOrdered By: Rd Brown on 97-21-0069Rveqyozdvq cells.squamous LM Ql (Urine sed)10-19 [HPF]0-2FKettering Health MiamisburgTroponin I.cardiac [Mass/volume] in Serum or Plasma by High sensitivity methodOrdered By: Federico Randolph on 00-99-7607Csyhmlbs I.cardiac High sensitivity method [Mass/Vol]6 pg/mL0-15[facility] HospitalUrine bacteria detection by automated methodOrdered By: Rd Brown on 53-80-7502Cmfngdqk Auto Ql (U)1+None SeenZanesville City HospitalUrine clarity by refractometry automatedOrdered By: Rd Brown on 99-81-1873Vepysig Refractometry automated (U)CloudyClearFKettering Health MiamisburgUrine cocaine detectionOrdered By: Anette Stout on 01-06-2023 Cocaine Ql (U)NegativeNegativeZanesville City HospitalUrine glucose measurement by automated test strip (mass/volume)Ordered By: Rd Brown on 88-45-9084Xotolth Auto test strip (U) [Mass/Vol]Normal mg/dLNoCleveland Clinic FoundationUrine hemoglobin detection by automated test stripOrdered By: Rd Brown on 88-16-4833Qemeshqzys Auto test strip Ql (U)3+Negative [facility] HospitalUrine lactic acid measurementOrdered By: Rd Brown on 76-00-1236Etdbwlj (U) [Moles/Vol]1.6 mmol/L0.5-2.2FK[facility] Health MiamisburgUrine leukocyte esterase detection by automated test stripOrdered By: Rd Brown on 96-94-8859Pzkryzsfs esterase Auto test strip Ql (U)2+ NegativeZanesville City HospitalUrobilinogen Auto test strip (U) [Mass/Vol]Ordered By: Rd Brown on 66-24-9066Qnbbifnqzhtb (U) [Mass/Vol] Normal mg/dLNoCleveland Clinic FoundationWBC Auto (Bld) [#/Vol]Ordered By: Rd Brown on 72-34-8652JFV (Bld) [#/Vol]17.7 10*3/uL4.5-13.5FKettering Health MiamisburgpH Auto test strip (U)Ordered By: Rd Brown on 88-60-9983nX (U)6.5 [pH]5.0-9.0[facility] HospitalAlbumin [Mass/volume] in Serum or PlasmaOrdered By: Ravi Arguello on 42-87-9589Szeftck [Mass/Vol]5.0 g/dL3.2-5.5FKettering Health MiamisburgAutomated erythrocytes count in urine sediment (number/area)Ordered By: Ravi Arguello on 48-06-1625VYL Auto (Urine sed) [#/Area]3-4 [HPF]0-4FKettering Health MiamisburgAutomated leukocytes count in urine sediment (number/area)Ordered By: Ravi Arguello on 55-79-9790RDB Auto (Urine sed) [#/Area]50-100 [HPF]0-4FKettering Health MiamisburgAutomated urine hyaline casts count (number/volume)Ordered By: Ravi Arguello on 33-33-6591Fjewety casts Auto (U) [#/Vol]None seen [LPF]0-1FKettering Health MiamisburgBasophils Auto (Bld) [#/Vol]Ordered By: Ravi Arguello on 01-64-0093Pajmhcuhn (Bld) [#/Vol]0.1 10*3/uL0.0-0.1FKettering Health MiamisburgBasophils/100 WBC Auto (Bld)Ordered By: Ravi Arguello on 01-02-2023 Basophils/100 WBC (Bld)0.5 %.[facility] HospitalBilirubin Test strip Ql (U)Ordered By: Ravi Arguello on 67-50-9634Nnomdasel Ql (U)Negative NegativeZanesville City HospitalCasts typing in urine sediment by light microscopyOrdered By: Ravi Arguello on 01-75-8781Nbuxb LM Nom (Urine sed)None seen [LPF]None SeenZanesville City HospitalColor Auto (U)Ordered By: Ravi Arguello on 08-01-8977Glqir (U)YellowYellowZanesville City Hospital Eosinophils Auto (Bld) [#/Vol]Ordered By: Ravi Arguello on 67-65-9748Tuufeiybcxh (Bld) [#/Vol]0.0 10*3/uL0.0-0.7FKettering Health MiamisburgEosinophils/100 WBC Auto (Bld)Ordered By: Ravi Arguello on 18-82-2263Gyelynhrwzf/100 WBC (Bld)0.0 %.[facility] HospitalErythrocyte distribution width Auto (RBC) [Ratio]Ordered By: Ravi Arguello on 64-78-3084Cerywzypgxe distribution width (RBC) [Ratio]13.9 %11.9-15.3FKettering Health MiamisburgEstimated glomerular filtration rate (GFR) non- AmericanOrdered By: Ravi Arguello on 76-28-3086FRQ/1.73 sq M.predicted among non-blacks MDRD (S/P/Bld) [Vol rate/Area]> 60 mL/MinZanesville City HospitalGlobulin Calc (S) [Mass/Vol]Ordered By: Ravi Arguello on 17-82-7475Oaclaouu (S) [Mass/Vol]2.9 g/dL [facility] HospitalHCG ( test) IA.rapid Ql (U)Ordered By: Ravi Arguello on 79-95-6562BUH ( test) Ql (U)NegativeZanesville City HospitalHematocrit Auto (Bld) [Volume fraction]Ordered By: Ravi Arguello on 95-84-0936Besnxwixct (Bld) [Volume fraction]42.1 %36.0-46.0[facility] HospitalHemoglobin [Mass/volume] in BloodOrdered By: Ravi Arguello on 93-46-8231Gudxurrfve (Bld) [Mass/Vol]14.0 g/dL12.0-16.0[facility] HospitalKetones Auto test strip (U) [Mass/Vol]Ordered By: Ravi Arguello on 92-02-3678Pbmzmhu (U) [Mass/Vol]3+NegativeZanesville City Hospital Leukocytes [#/volume] corrected for nucleated erythrocytes in Blood by Automated counOrdered By: Ravi Arguello on 41-54-5997VWB corrected for nucl RBC Auto (Bld) [#/Vol]14.1 10*3/uL4.5-13.5FKettering Health MiamisburgLymphocytes Auto (Bld) [#/Vol]Ordered By: Ravi Arguello on 59-76-0604Meuebgcbclg (Bld) [#/Vol]1.4 10*3/uL1.20-4.8[facility] HospitalLymphocytes/100 WBC Auto (Bld) Ordered By: Ravi Arguello on 98-51-1800Oykhtvkifly/100 WBC (Bld)10.1 %.[facility] HospitalH Auto (RBC) [Entitic mass]Ordered By: Ravi Arguello on 90-40-3581YCR (RBC) [Entitic mass]28.6 pg25.0-35.0[facility] HospitalMCHC Auto (RBC) [Mass/Vol]Ordered By: Ravi Arguello on 82-78-6103QMUK (RBC) [Mass/Vol]33.2 g/dL31.0-37.0[facility] HospitalMCV Auto (RBC) [Entitic vol]Ordered By: Ravi Arguello on 54-00-6243FVI (RBC) [Entitic vol]86.2 vO03-628AmdjqwbjmZanesville City HospitalMonocyte distribution width [Entitic volume] in Blood by AutomatedOrdered By: Ravi Arguello on 24-90-5957Iqoqfoua distribution width Auto (Bld) [Entitic vol]16.52 %0.00-20.00[facility] HospitalMonocytes Auto (Bld) [#/Vol]Ordered By: Ravi Arguello on 01-02-2023 Monocytes (Bld) [#/Vol]1.0 10*3/uL0.1-1.00[facility] Monocytes/100 WBC Auto (Bld)Ordered By: Ravi Arguello on 73-86-6353Yfyktlala/100 WBC (Bld)7.0 %.[facility] HospitalNeutrophils Auto (Bld) [#/Vol] Ordered By: Ravi Arguello on 58-21-4157Tvbbbbxywbv (Bld) [#/Vol]11.6 10*3/uL 1.2-7.7FKettering Health MiamisburgNeutrophils/100 WBC Auto (Bld)Ordered By: Ravi Arguello on 57-61-6982Mgyeqloycaw/100 WBC (Bld)82.4 %.[facility] HospitalNitrite Test strip Ql (U)Ordered By: Ravi Arguello on 01-02-2023 Nitrite Ql (U)NegativeNegativeZanesville City HospitalNo Panel InformationOrdered By: Ravi Arguello on 01-02-2023> 60 mL/MinZanesville City Hospital29.0 U/D50-94UvegruodsZanesville City Hospital86.85[facility] HospitalNucleated erythrocytes [Presence] in Blood by Automated countOrdered By: Ravi Arguello on 17-86-4784Ycsqallyy RBC Auto Ql (Bld)0.0 /100{WBC}0-0.5FKettering Health MiamisburgPlatelet mean volume Auto (Bld) [Entitic vol]Ordered By: Ravi Arguello on 68-32-6181Zkmwpkda mean volume (Bld) [Entitic vol]8.4 fL6.3-10.7FKettering Health MiamisburgPlatelets Auto (Bld) [#/Vol]Ordered By: Ravi Arguello on 57-07-4176Deiebdvar (Bld) [#/Vol]299 10*3/uL 150-450[facility] HospitalProtein Auto test strip (U) [Mass/Vol] Ordered By: Ravi Arguello on 78-94-4452Hhursnk (U) [Mass/Vol]100 mg/dLNegative [facility] HospitalProtein [Mass/volume] in Serum or PlasmaOrdered By: Ravi Arguello on 62-52-0969Vsgsnyh [Mass/Vol]7.9 g/dL6.1-7.9[facility] HospitalRBC Auto (Bld) [#/Vol]Ordered By: Ravi Arguello on 10-04-1037XBX (Bld) [#/Vol]4.89 10*6/uL4.10-5.10[facility] Centererum or plasma alanine aminotransferase measurement without P-5'-P (enzymatic activiOrdered By: Ravi Arguello on 32-91-5189AEX No additional P-5'-P [Catalytic activity/Vol]26 U/W05-51ThfqhjubcCincinnati VA Medical Centererum or plasma albumin/globulin mass ratioOrdered By: Ravi Arguello on 01-02-2023 Albumin/Globulin [Mass ratio]1.7 {ratio}[facility] Centererum or plasma alkaline phosphatase measurement (enzymatic activity/volume)Ordered By: Ravi Arguello on 96-76-6550JDF [Catalytic activity/Vol]60 U/B92-65FcqcngonmCincinnati VA Medical Centererum or plasma anion gap determinationOrdered By: Ravi Arguello on 72-67-1270Dsngt gap [Moles/Vol]16.4 mmol/L6.0-15.0[facility] Centererum or plasma aspartate aminotransferase measurement (enzymatic activity/volume)Ordered By: Ravi Arguello on 91-58-5353EFV [Catalytic activity/Vol]32 U/K21-03OcyvsbndjCincinnati VA Medical Centererum or plasma calcium measurement (mass/volume)Ordered By: Rvai Arguello on 92-48-4949Jxcqksd [Mass/Vol]9.8 mg/dL8.2-10.2FNationwide Children's Hospitalerum or plasma chloride measurement (moles/volume)Ordered By: Ravi Arguello on 01-02-2023 Chloride [Moles/Vol]106 mmol/B25-915WzysinqywCincinnati VA Medical Centererum or plasma creatinine measurement with calculation of estimated glomerular filtr Ordered By: Ravi Arguello on 26-02-3819Efsvpgdmej and Glomerular filtration rate.predicted panel (S/P/Bld)1.01 mg/dL0.44-1.03[facility] Centererum or plasma glucose measurement (mass/volume)Ordered By: Ravi Arguello on 20-81-4197Ldpijjt [Mass/Vol]123 mg/yW47-229TsfxxvxokZanesville City Hospital Serum or plasma potassium measurement (moles/volume)Ordered By: Ravi Arguello on 39-69-8073Iagcupzat [Moles/Vol]3.2 mmol/L3.5-5.1FNationwide Children's Hospitalerum or plasma sodium measurement (moles/volume)Ordered By: Ravi Arguello on 73-36-9149Peharx [Moles/Vol]142 mmol/Y626-573QuzsrymnnCincinnati VA Medical Centererum or plasma total bilirubin measurement (mass/volume)Ordered By: Ravi Arguello on 37-10-0072Gtdytvbsg [Mass/Vol]0.8 mg/dL0.3-1.2FNationwide Children's Hospitalerum or plasma total carbon dioxide measurement (moles/volume) Ordered By: Ravi Arguello on 79-02-4264VE4 [Moles/Vol]22.8 mmol/L22.0-30.0 [facility] Centererum or plasma urea nitrogen measurement (mass/volume)Ordered By: Ravi Arguello on 86-56-6488Ggxd nitrogen [Mass/Vol]22 mg/dL9-23[facility] Centerpecific gravity Auto test strip (U) [Rel density]Ordered By: Ravi Arguello on 94-96-2539Uleexboj gravity (U) [Rel density]1.0361.001-1.030[facility] Centerquamous epithelial cells detection in urine sediment by light microscopyOrdered By: Ravi Arguello on 13-00-9426Csvoahkgce cells.squamous LM Ql (Urine sed)Innumerable [HPF]0-2 [facility] HospitalUrine bacteria detection by automated method Ordered By: Ravi Arguello on 46-47-6460Msiudihq Auto Ql (U)3+None SeenZanesville City HospitalUrine clarity by refractometry automatedOrdered By: Ravi Arguello on 63-59-2915Nqjdvkx Refractometry automated (U)TurbidClear [facility] HospitalUrine culture routineOrdered By: Ravi Arguello on 30-56-7335Wuapgmvq identified Cx Nom (U)[facility] Urine glucose measurement by automated test strip (mass/volume)Ordered By: Ravi Arguello on 63-32-8021Ymkhojd Auto test strip (U) [Mass/Vol]Normal mg/dL NormalZanesville City HospitalUrine hemoglobin detection by automated test stripOrdered By: Ravi Arguello on 44-50-6855Irjjqptsrf Auto test strip Ql (U)NegativeNegativeZanesville City HospitalUrine leukocyte esterase detection by automated test stripOrdered By: Ravi Arguello on 78-88-5433Owzvyiiom esterase Auto test strip Ql (U)3+NegativeZanesville City Hospital Urobilinogen Auto test strip (U) [Mass/Vol]Ordered By: Ravi Arguello on 40-28-3875Bpfhwtfjlxzf (U) [Mass/Vol]Normal mg/dLNormalZanesville City HospitalWBC Auto (Bld) [#/Vol]Ordered By: Ravi Arguello on 21-40-2970OAT (Bld) [#/Vol]14.1 10*3/uL4.5-13.5Fire[facility] CenterpH Auto test strip (U)Ordered By: Ravi Arguello on 30-52-7487jN (U)6.0 [pH]5.0-9.0[facility] HospitalCULTURE URINEon 22-08-7772JUNGCNP URINECulture Observations: LIGHT GROWTH OF MIXED GENITAL JORI. NO POTENTIAL PATHOGENS SEEN.NormalAvita Health System Ontario HospitalComment on above:Performed By: #### URCX #### [facility] [address] [place] [address] Dr. Dacia AckermanCovid-19 PCR (CVDTB)on 45-01-5633SLFF-CoV-2 (COVID-19) RNA JANAK+probe Ql (Unsp spec)Not detectedNormalNOT DETECTEDThe [facility] Comment on above:Result Comment: When diagnostic [...] for this test is supported by the Automation Sales Manager of Health and Human Service's declaration that [...] longer be used).Performed By: #### CVDTBH #### [facility] [address] [place] [address] Dr. Dacia AckermanDRUG SCREEN RAPID (URINE)on 75-76-0944AOJFwusgbmgCfhrnbNDTYFMTR [facility] Ontario HospitalComment on above:Performed By: #### DRUGRPD #### [facility] [address] [place] [address] Dr. Dacia AckermanBARNegativeNormalNEGATIVEThe [facility] HospitalComment on above: Performed By: #### DRUGRPD #### [facility] [address] [place] [address] Dr. Dacia CondonPNegativeNormalNEGATIVEAvita Health System Ontario HospitalComment on above: Performed By: #### DRUGRPD #### [facility] [address] [place] [address] Dr. Dacia MontanoZONegativeNormalNEGATIVEAvita Health System Ontario HospitalComment on above: Performed By: #### DRUGRPD #### [facility] [address] [place] [address] Dr. Dacia MonaeCNegativeNormalNEGATIVEAvita Health System Ontario HospitalComment on above: Performed By: #### DRUGRPD #### [facility] [address] [place] [address] Dr. Dacia LowryKettering Health Washington TownshipComment on above: Result Comment: AMP (Amphetamine): 500ng/mL, BAR (Barbituates): 200 ng/mL, BZO (Benzodiazepines): 150 ng/mL, BUP (Buprenorphine): 10 ng/mL, MELINA (Cocaine): 150 ng/mL, mAMP (Methamphetamine): 500 ng/mL, MTD (Methadone): 200 ng/mL, OPI (Opiates): 100 ng/mL, OXY (Oxycodone): 100 ng/mL, PCP (Phencyclidine): 25 ng/mL, PPX (Propoxyphene): 300 ng/mL, THC (Cannabinoids): 50 ng/mL, TCA (Trycyclic Antidepressants): 300 ng/mLPerformed By: #### DRUGRPD #### [facility] [address] [place] [address] Dr. Dacia AckermanDRUG CUT HEADERDRUG CLASS TEST SYSTEM CUT-OFF CONCENTRATIONS ARE FOLLOWS:NormalThe [facility] HospitalComgarden city hospital on above:Performed By: #### DRUGRPD #### [facility] [address] [place] [address] Dr. Dacia De La CruzMPNegativeNormalNEGATIVEAvita Health System Ontario HospitalComgarden city hospital on above: Performed By: #### DRUGRPD #### [facility] [address] [place] [address] Dr. Yilan ChangMTDNegativeNormalNEGATIVEAvita Health System Ontario HospitalComment on above: Performed By: #### DRUGRPD #### [facility] [address] [address] [address] Dacia AckermanOPINegativeNormalNEGATIVEAvita Health System Ontario HospitalComgarden city hospital on above: Performed By: #### DRUGRPD #### [facility] [address] [address] [address] Dacia AckermanOXYNegativeNormalNEGATIVEAvita Health System Ontario HospitalComgarden city hospital on above: Performed By: #### DRUGRPD #### [facility] [address] [address] [address] Dacia AckermanPCPNegativeNormalNEGATIVEAvita Health System Ontario HospitalComgarden city hospital on above: Performed By: #### DRUGRPD #### [facility] [address] [place] [address] Dr. Dacia AckermanPPXNegativeNormalNEGATIVEAvita Health System Ontario HospitalComgarden city hospital on above: Performed By: #### DRUGRPD #### [facility] [address] [place] [address] Dr. Dacia AckermanTCANegativeNormalNEGATIVEAvita Health System Ontario HospitalComgarden city hospital on above: Performed By: #### DRUGRPD #### [facility] [address] [place] [address] Dr. Dacia AckermanTHCPositiveAbnormalNEGATIVEAvita Health System Ontario HospitalComgarden city hospital on above: Performed By: #### DRUGRPD #### [facility] [address] [place] [address] Dr. Dacia Delgado URINE PROFILEon 42-14-0996Nqjftknbr Ql (U)SMALLAbnormal NEGATIVEAvita Health System Ontario HospitalComgarden city hospital on above:Performed By: #### PREGU, ERUR, UMICRO #### [facility] [address] [place] [address] Dr. Dacia AckermanClarity (U)CLEARNormalCLEARAvita Health System Ontario HospitalComgarden city hospital on above: Performed By: #### PREGU, ERUR, UMICRO #### [facility] [address] [place], [place] [address] Dr. Dacia Brice (U)YELLOWNormalYELLOWAvita Health System Ontario HospitalComment on above: Performed By: #### PREGU, ERUR, UMICRO #### [facility] [address] [address] [address] Dacia Kate micrscopic examination will be performed if indicated. NormalThe [facility] HospitalComment on above:Performed By: #### PREGU, ERUR, UMICRO #### [facility] [address] [address] [address] Dacia AckermanGlucose Ql (U)NegativeNormalNEGATIVEAvita Health System Ontario HospitalComment on above:Performed By: #### PREGU, ERUR, UMICRO #### [facility] [address] [place] [address] Dr. Dacia AckermanHemoglobin Ql (U)NegativeNormalNEGATIVEUpper [facility] Medical Center on above:Performed By: #### PREGU, ERUR, UMICRO #### [facility] [address] [place] [address] Dr. Dacia AckermanKetones Ql (U)>=80AbnormalNEGATIVEAvita Health System Ontario HospitalComment on above:Performed By: #### PREGU, ERUR, UMICRO #### [facility] [address] [place] [address] Dr. Dacia AckermanLEUKOCYTESTRACEAbnormalNEGATIVEAvita Health System Ontario HospitalComment on above:Performed By: #### PREGU, ERUR, UMICRO #### [facility] [address] [place] [address] Dr. Dacia AckermanNitrite Ql (U)NegativeNormalNEGATIVEAvita Health System Ontario HospitalComment on above:Performed By: #### PREGU, ERUR, UMICRO #### [facility] [address] [address] [address] Dacia AckermanpH (U)7.5 [pH]Normal5-9The [facility] HospitalComment on above: Performed By: #### PREGU, ERUR, UMICRO #### [facility] [address] [place] [address] Dr. Dacia AckermanProtein (U) [Mass/Vol]100 mg/dLAbnormalNEGATIVE/ TRACEThe [facility] on above:Performed By: #### PREGPAULA Cash, UMICRO #### [facility] [address] [place] [address] Dr. Dacia AckermanSPEC GRAVITY1.372Bknmtk8.005-<=1.025The [facility] on above:Performed By: #### PREGCASANDRA CashR, UMICRO #### [facility] [address] [place] [address] Dr. Dacia Lyman MICRO INDINDICATEDUniversity Hospitals Health SystemComgarden city hospital on above: Performed By: #### PREGUCASANDRAR, UMICRO #### [facility] [address] [place] [address] Dr. Dacia Grey Qn (U)1.0 {Kaykay'U}/dLNormal0.2 - 1.0The [facility] on above:Performed By: #### PAULA MARTINES, UMICRO #### [facility] [address] [place] [address] Dr. Dacia Camara AND B AGon 95-86-3671ORZIIRVPEVOSJMercy Health Lorain Hospital on above:Result Comment: Negative for Flu A protein angiten. Infection due to Flu A cannot be ruled out. FluA angiten in the sample may be below the detection limit of the test.Performed By: #### INFLUAB #### [facility] [address] [place] [address] [address]ello[address] on above: Result Comment: Negative for Flu B protein antigen. Infection due to Flu B cannot be ruled out. FluB antigen in the sample may be below the detection limit of the test.Performed By: #### INFLUAB #### [facility] [address] [place] [address] Dr. Yilan ChangINFLUENZA A AGNegativeNormalNEGATIVE SEE COMMENTAvita Health System Ontario HospitalComment on above:Performed By: #### INFLUAB #### [facility] [address] [address] [address] Dacia Wong B AGNegativeNormalNEGATIVE SEE COMMENTAvita Health System Ontario HospitalComment on above:Performed By: #### INFLUAB #### [facility] [address] [address] [address] Dacia ChowdhuryGNANCY URon 23-08-5197PEXUVPWJD, QUALNegativeNormalNEGATIVEThe [facility] HospitalComment on above:Performed By: #### PREGU, ERUR, UMICRO #### [facility] [address] [place] [address] Dr. Dacia Hernandez MICROSCOPIC ONLYon 09-80-9257MSSQFOFTJOBQCOUPFlrzxofpRPKZ SEENThe [facility] HospitalComment on above:Performed By: #### PREGU, ERUR, UMICRO #### [facility] [address] [place] [address] Dr. Dacia De Los Santos identified Cx Nom (U)INDICATEDUniversity Hospitals Health SystemComgarden city hospital on above:Performed By: #### PREGU, ERUR, UMICRO #### [facility] [address] [place] [address] Dr. Dacia AckermanCASTREX SEENNormalNONE SEENAvita Health System Ontario HospitalComgarden city hospital on above:Performed By: #### PREGU, ERUR, UMICRO #### [facility] [address] [address] [address] Dacia Poole LM Nom (Urine sed)NONE SEENNormalNONE SEENAvita Health System Ontario HospitalComment on above:Performed By: #### PREGU, ERUR, UMICRO #### [facility] [address] [place] [address] Dr. Pederson ChangEkierrathelial cells LM Ql (Urine sed)MANYAbnormalNONE SEEN /RAREThe [facility] HospitalComment on above:Performed By: #### PREGU, ERUR, UMICRO #### [facility] [address] [place], [place] [address] Dr. Dacia AckermanMUCOUSSMALLAbnormalNONE SEENAvita Health System Ontario HospitalComment on above:Performed By: #### PAULA MARTINES UMICRO #### [facility] [address] [place], [place] [address] Dr. Dacia AckermanRBCNONE SEENAbnormal0-2The [facility] HospitalComment on above: Performed By: #### PAULA MARTINES UMICRO #### [facility] [address] [place], [place] [address] Dr. Pederson ChangWBC5-10AbnormalNONE SEENThe [facility] HospitalComment on above: Performed By: #### PAULA MARTINES UMICЕЛЕНА #### [facility] [address] [place], [place] [address] Dr. Dacia AckermanXR CHEST 1 Von 08-00-7821JO CHEST 1 VEXAM: XR CHEST 1 V [...] Electronically authenticated by: KIA ARVIZU Date: 2023-01-01 13:00University Hospitals Health SystemAutomated erythrocytes count in urine sediment (number/area) Ordered By: Federico Randolph on 01-32-4860BMB Auto (Urine sed) [#/Area]0-1 [HPF] 0-4FKettering Health MiamisburgAutomated leukocytes count in urine sediment (number/area)Ordered By: Federico Randolph on 59-59-4727HJM Auto (Urine sed) [#/Area]20-49 [HPF]0-4FKettering Health MiamisburgBacteria identified Cx Nom (U)Ordered By: Federico Randolph on 73-76-6386Zmxaj culture routine Staphylococcus epidermidisZanesville City HospitalBilirubin Test strip Ql (U)Ordered By: Federico Randolph on 35-47-5045Xbhrnrcwc Ql (U)NegativeNegative [facility] HospitalCOVID-19 SOFIAOrdered By: Federico Randolph on 29-76-3528ZKVX-CoV+SARS-CoV-2 (COVID-19) Ag IA.rapid Ql (Resp)NegativeNegative [facility] HospitalCasts typing in urine sediment by light microscopyOrdered By: Federico Randolph on 05-00-7953Yizkq LM Nom (Urine sed)None seen [LPF]None SeenZanesville City HospitalColor Auto (U)Ordered By: Federcio Randolph on 98-15-7624Kwspr (U)YellowYellowZanesville City HospitalHCG ( test) IA.rapid Ql (U)Ordered By: Federico Randolph on 75-40-7594XJA ( test) Ql (U)NegativeZanesville City Hospital Influenza virus A and B antigen detection by immunoassayOrdered By: Federico Randolph on 07-80-1385WUNXF+FLUBV Ag IA Ql (Unsp spec)[facility] HospitalKetones Auto test strip (U) [Mass/Vol]Ordered By: Federico Randolph on 06-37-0495Pzxxrqm (U) [Mass/Vol]3+NegativeZanesville City Hospital Nitrite Test strip Ql (U)Ordered By: Federico Randolph on 20-51-7354Vaqctue Ql (U)NegativeNegMary Rutan HospitalNo Panel InformationOrdered By: Federico Randolph on 31-99-6322Dnoa seen [LPF]0-8[facility] HospitalProtein Auto test strip (U) [Mass/Vol]Ordered By: Federico Randolph on 57-59-0984Zqgjzgw (U) [Mass/Vol]100 mg/dLNegCommunity Regional Medical Centerpecific gravity Auto test strip (U) [Rel density]Ordered By: Federico Randolph on 01-40-2189Dhvkhybi gravity (U) [Rel density]1.0261.001-1.030 [facility] Centerquamous epithelial cells detection in urine sediment by light microscopyOrdered By: Federico Randolph on 65-17-1515Seflalostm cells.squamous LM Ql (Urine sed)Innumerable [HPF]0-2FKettering Health MiamisburgUrine bacteria detection by automated methodOrdered By: Federico Randolph on 11-36-6381Rznudeyq Auto Ql (U)3+None SeenZanesville City Hospital Urine clarity by refractometry automatedOrdered By: Federico Randolph on 13-88-7702Pbgjgtq Refractometry automated (U)TurbidCleParkview HealthUrine glucose measurement by automated test strip (mass/volume) Ordered By: Federico Randolph on 28-78-6409Ggkkuxf Auto test strip (U) [Mass/Vol] Normal mg/dLNormUniversity Hospitals Samaritan Medical CenterUrine hemoglobin detection by automated test stripOrdered By: Federico Randolph on 55-70-1233Zxjbihttrn Auto test strip Ql (U)NegativeNegMary Rutan HospitalUrine leukocyte esterase detection by automated test stripOrdered By: Federico Randolph on 96-19-5215Tlkklitds esterase Auto test strip Ql (U)2+NegativeZanesville City HospitalUrobilinogen Auto test strip (U) [Mass/Vol]Ordered By: Federico Randolph on 39-07-9871Ptvluwjuoxsg (U) [Mass/Vol]Normal mg/dLNoSelect Medical Specialty Hospital - ColumbuspH Auto test strip (U)Ordered By: Federico Randolph on 47-73-5863fT (U)[pH]5.0-9.0[facility] Amphetamine Screen Ql (U)Ordered By: Corey Newberry on 94-26-3002Qpgreafmwbvc Ql (U)NegativeNegativeZanesville City HospitalBarbiturates [Presence] in UrineOrdered By: Corey Newberry on 23-95-7404Qrrrcnmtzkfv Ql (U)NegativeNegative [facility] HospitalBasophils Auto (Bld) [#/Vol]Ordered By: Corey Newberry on 59-19-4600Piqlzhdql (Bld) [#/Vol]0.0 10*3/uL0.0-0.1FKettering Health MiamisburgBasophils/100 WBC Auto (Bld)Ordered By: Corey Newberry on 98-01-5737Riwqickhp/100 WBC (Bld)0.3 %.[facility] Benzodiazepines [Presence] in UrineOrdered By: Corey Newberry on 11-09-2022 Benzodiazepines Ql (U)NegativeNegativeZanesville City HospitalBilirubin Test strip Ql (U)Ordered By: Corey Newberry on 84-62-6739Qkcqhbxyi Ql (U) NegativeNegMary Rutan HospitalBody fluid albumin measurement (mass/volume)Ordered By: Croey Newberry on 11-03-0946Mjuavuj (Body fld) [Mass/Vol]4.2 g/dL3.2-5.5FKettering Health MiamisburgCannabinoids [Presence] in Urine by Screen methodOrdered By: Corey Newberry on 11-09-2022 Cannabinoids Screen Ql (U)PositiveNegativeZanesville City HospitalColor Auto (U)Ordered By: Corey Newberry on 10-93-5503Fyhjr (U)YellowYellowZanesville City HospitalEosinophils Auto (Bld) [#/Vol]Ordered By: Corey Newberry on 71-24-0589Gnizemwdqum (Bld) [#/Vol]0.1 10*3/uL0.0-0.7FKettering Health MiamisburgEosinophils/100 WBC Auto (Bld)Ordered By: Corey Newberry on 31-02-0713Bvssczcbptw/100 WBC (Bld)0.8 %.[facility] Erythrocyte distribution width Auto (RBC) [Ratio]Ordered By: Corey Newberry on 55-65-7527Aclqnzajsky distribution width (RBC) [Ratio]13.8 %11.9-15.3FKettering Health MiamisburgEstimated glomerular filtration rate (GFR) non- AmericanOrdered By: Corey Newberry on 16-35-2278MBH/1.73 sq M.predicted among non-blacks MDRD (S/P/Bld) [Vol rate/Area]> 60 mL/MinZanesville City HospitalGlobulin Calc (S) [Mass/Vol]Ordered By: Corey Newberry on 11-09-2022 Globulin (S) [Mass/Vol]2.4 g/dLZanesville City HospitalHCG ( test) IA.rapid Ql (U)Ordered By: Corey Newberry on 63-10-7895BKI ( test) Ql (U)NegativeZanesville City HospitalHematocrit Auto (Bld) [Volume fraction]Ordered By: Corey Newberry on 99-94-5313Mdqpxhdjwp (Bld) [Volume fraction]41.0 %36.0-46.0[facility] HospitalHemoglobin [Mass/volume] in BloodOrdered By: Corey Newberry on 62-43-1524Ilxszsjjhg (Bld) [Mass/Vol]13.4 g/dL12.0-16.0[facility] City HospitalKetones Auto test strip (U) [Mass/Vol]Ordered By: Corey Newberry on 40-23-4183Lltwcsv (U) [Mass/Vol]NegativeNegativeZanesville City HospitalLeukocytes [#/volume] corrected for nucleated erythrocytes in Blood by Automated counOrdered By: Corey Newberry on 42-83-9234MAQ corrected for nucl RBC Auto (Bld) [#/Vol]11.7 10*3/uL4.5-13.5FKettering Health MiamisburgLymphocytes Auto (Bld) [#/Vol] Ordered By: Corey Newberry on 49-21-3725Qxuqlpshwxx (Bld) [#/Vol]1.4 10*3/uL 1.20-4.8[facility] HospitalLymphocytes/100 WBC Auto (Bld)Ordered By: Corey Newberry on 15-42-5189Dnjdlyujnzs/100 WBC (Bld)12.1 %.[facility] Auto (RBC) [Entitic mass]Ordered By: Corey Newberry on 01-88-5831BOW (RBC) [Entitic mass]28.1 pg25.0-35.0[facility] HospitalMCHC Auto (RBC) [Mass/Vol]Ordered By: Corey Newberry on 37-07-7854XBCC (RBC) [Mass/Vol]32.8 g/dL31.0-37.0[facility] HospitalMCV Auto (RBC) [Entitic vol]Ordered By: Corey Newberry on 93-65-3624KEC (RBC) [Entitic vol]85.7 jO66-421BewjwkmfzZanesville City HospitalMonocyte distribution width [Entitic volume] in Blood by AutomatedOrdered By: Corey Newberry on 11-09-2022 Monocyte distribution width Auto (Bld) [Entitic vol]16.08 %0.00-20.00[facility] HospitalMonocytes Auto (Bld) [#/Vol]Ordered By: Corey Newberry on 16-04-1278Ufqacpdqr (Bld) [#/Vol]0.5 10*3/uL0.1-1.00[facility] HospitalMonocytes/100 WBC Auto (Bld)Ordered By: Corey Newberry on 11-09-2022 Monocytes/100 WBC (Bld)4.7 %.[facility] HospitalNeutrophils Auto (Bld) [#/Vol]Ordered By: Corey Newberry on 51-45-1876Goreelojmmn (Bld) [#/Vol] 9.6 10*3/uL1.2-7.7FKettering Health MiamisburgNeutrophils/100 WBC Auto (Bld)Ordered By: Corey Newberry on 32-35-7677Erutvfiztuj/100 WBC (Bld)82.1 %. [facility] HospitalNitrite Test strip Ql (U)Ordered By: Corey Newberry on 11-31-2453Dgomcfg Ql (U)NegativeNegativeZanesville City HospitalNo Panel InformationOrdered By: Corey Newberry on 09-02-6231Wqtbjytg NegativeZanesville City Hospital> 60 mL/MinZanesville City Hospital118.86[facility] City HospitalNucleated erythrocytes [Presence] in Blood by Automated countOrdered By: Corey Newberry on 45-44-0440Ntwzblcgi RBC Auto Ql (Bld)0.1 /100{WBC}0-0.5FKettering Health MiamisburgPhencyclidine Screen Ql (U)Ordered By: Corey Newberry on 99-07-5576Ezpeanimakfgl Ql (U) NegativeNegMary Rutan HospitalPlatelet mean volume Auto (Bld) [Entitic vol]Ordered By: Corey Newberry on 71-14-6484Blgvdzur mean volume (Bld) [Entitic vol]8.5 fL6.3-10.7FKettering Health MiamisburgPlatelets Auto (Bld) [#/Vol]Ordered By: Corey Newberry on 30-18-8778Hazgjpbcj (Bld) [#/Vol]274 10*3/cX638-193VtomqlkimZanesville City HospitalProtein Auto test strip (U) [Mass/Vol]Ordered By: Corey Newberry on 46-07-5458Zocyrij (U) [Mass/Vol]Negative NegativeZanesville City HospitalProtein [Mass/volume] in Serum or PlasmaOrdered By: Corey Newberry on 89-11-4982Cfsjgxq [Mass/Vol]6.6 g/dL6.1-7.9 [facility] HospitalRBC Auto (Bld) [#/Vol]Ordered By: Corey Newberry on 54-13-6311IRB (Bld) [#/Vol]4.78 10*6/uL4.10-5.10[facility] Centererum or plasma alanine aminotransferase measurement without P-5'-P (enzymatic activiOrdered By: Corey Newberry on 18-35-8387FLF No additional P-5'-P [Catalytic activity/Vol]67 U/A80-83UacurnihmCincinnati VA Medical Centererum or plasma albumin/globulin mass ratioOrdered By: Corey Newberry on 06-90-4009Qifmlcy/Globulin [Mass ratio]1.8 {ratio}[facility] Centererum or plasma alkaline phosphatase measurement (enzymatic activity/volume)Ordered By: Corey Newberry on 17-94-3952XKD [Catalytic activity/Vol]59 U/L31-44OajtwawwwCincinnati VA Medical Centererum or plasma anion gap determinationOrdered By: Corey Newberry on 29-21-8395Gsbxg gap [Moles/Vol] 19.7 mmol/L6.0-15.0[facility] Centererum or plasma aspartate aminotransferase measurement (enzymatic activity/volume)Ordered By: Corey Newberry on 24-20-8829DGT [Catalytic activity/Vol]48 U/Y73-69QsocxujqcCincinnati VA Medical Centererum or plasma calcium measurement (mass/volume)Ordered By: Corey Newberry on 75-01-7192Ngeugrf [Mass/Vol]9.6 mg/dL8.2-10.2FNationwide Children's Hospitalerum or plasma chloride measurement (moles/volume) Ordered By: Corey Newberry on 47-26-1875Gxmfuziq [Moles/Vol]98 mmol/L95-114 [facility] Centererum or plasma creatinine measurement with calculation of estimated glomerular filtrOrdered By: Corey Newberry on 98-73-7309Xfowvxgrwp and Glomerular filtration rate.predicted panel (S/P/Bld) 0.76 mg/dL0.44-1.03[facility] Centererum or plasma glucose measurement (mass/volume)Ordered By: Corey Newberry on 51-15-3377Sitesnk [Mass/Vol]110 mg/wS33-106VathnsnggCincinnati VA Medical Centererum or plasma potassium measurement (moles/volume)Ordered By: Corey Newberry on 11-09-2022 Potassium [Moles/Vol]3.4 mmol/L3.5-5.1FNationwide Children's Hospitalerum or plasma sodium measurement (moles/volume)Ordered By: Corey Newberry on 11-09-2022 Sodium [Moles/Vol]137 mmol/O306-351XcworqfgcCincinnati VA Medical Centererum or plasma total bilirubin measurement (mass/volume)Ordered By: Corey Newberry on 78-08-5328Carvptqft [Mass/Vol]0.5 mg/dL0.3-1.2FKet[facility] Serum or plasma total carbon dioxide measurement (moles/volume)Ordered By: Corey Newberry on 60-45-5699SC6 [Moles/Vol]22.7 mmol/L22.0-30.0[facility] Centererum or plasma urea nitrogen measurement (mass/volume) Ordered By: Corey Newberry on 16-33-7735Iwyv nitrogen [Mass/Vol]3 mg/dL9-23 [facility] Centerpecific gravity Auto test strip (U) [Rel density]Ordered By: Corey Newberry on 51-23-4522Hcwtreds gravity (U) [Rel density]1.0091.001-1.030[facility] HospitalUrine clarity by refractometry automatedOrdered By: Corey Newberry on 12-35-9711Zuwkjcw Refractometry automated (U)ClearCleParkview HealthUrine cocaine detectionOrdered By: Corey Newberry on 62-56-9620Cbdjemn Ql (U)Negative NegativeZanesville City HospitalUrine glucose measurement by automated test strip (mass/volume)Ordered By: Corey Newberry on 95-99-5507Ddanewq Auto test strip (U) [Mass/Vol]Normal mg/dLNormalZanesville City Hospital Urine hemoglobin detection by automated test stripOrdered By: Corey Newberry on 69-14-1597Prfwmuzrte Auto test strip Ql (U)NegativeNegativeZanesville City HospitalUrine leukocyte esterase detection by automated test stripOrdered By: Corey Newberry on 41-06-3267Tnqtmqcqw esterase Auto test strip Ql (U) NegativeNegativeZanesville City HospitalUrobilinogen Auto test strip (U) [Mass/Vol]Ordered By: Corey Newberry on 30-49-3237Mxmnycosbrra (U) [Mass/Vol]Normal mg/dLNormalZanesville City HospitalWBC Auto (Bld) [#/Vol]Ordered By: Corey Newberry on 56-77-0466YSL (Bld) [#/Vol]11.7 10*3/uL 4.5-13.5FKettering Health MiamisburgpH Auto test strip (U)Ordered By: Corey Newberry on 02-67-0179bD (U)[pH]5.0-9.0[facility] Albumin [Mass/volume] in Serum or PlasmaOrdered By: Art Bianchi on 11-07-2022 Albumin [Mass/Vol]4.6 g/dL3.2-5.5FKettering Health MiamisburgAutomated erythrocytes count in urine sediment (number/area)Ordered By: Art Bianchi on 85-89-5687MDX Auto (Urine sed) [#/Area]0-1 [HPF]0-4FKettering Health MiamisburgAutomated leukocytes count in urine sediment (number/area)Ordered By: Art Bianchi on 12-17-2197PJR Auto (Urine sed) [#/Area]3-4 [HPF]0-4FKettering Health MiamisburgBasophils Auto (Bld) [#/Vol]Ordered By: Art Bianchi on 03-18-2648Fwxtsxpjh (Bld) [#/Vol]0.1 10*3/uL0.0-0.1FKettering Health MiamisburgBasophils/100 WBC Auto (Bld)Ordered By: Art Bianchi on 11-07-2022 Basophils/100 WBC (Bld)1.0 %.[facility] HospitalBilirubin Test strip Ql (U)Ordered By: Art Bianchi on 14-90-0463Qiiwxygca Ql (U)Negative NegativeZanesville City HospitalColor Auto (U)Ordered By: Art Bianchi on 95-18-4612Dzzxf (U)YellowYellowZanesville City HospitalEosinophils Auto (Bld) [#/Vol]Ordered By: Art Bianchi on 51-39-9986Rnciaklseut (Bld) [#/Vol] 0.1 10*3/uL0.0-0.7FKettering Health MiamisburgEosinophils/100 WBC Auto (Bld)Ordered By: Art Bianchi on 49-57-4637Vrerugboeuv/100 WBC (Bld)1.2 %. [facility] HospitalErythrocyte distribution width Auto (RBC) [Ratio]Ordered By: Art Bianchi on 25-33-4266Vnfwnnajebm distribution width (RBC) [Ratio]14.0 %11.9-15.3FKettering Health MiamisburgEstimated glomerular filtration rate (GFR) non- AmericanOrdered By: Art Bianchi on 11-07-2022 GFR/1.73 sq M.predicted among non-blacks MDRD (S/P/Bld) [Vol rate/Area]> 60 mL/MinZanesville City HospitalGlobulin Calc (S) [Mass/Vol]Ordered By: Art Bianchi on 02-67-1387Xjpsxvwe (S) [Mass/Vol]2.7 g/dLZanesville City HospitalHCG ( test) IA.rapid Ql (U)Ordered By: Art Bianchi on 34-89-2171UYF ( test) Ql (U)NegativeZanesville City Hospital Hematocrit Auto (Bld) [Volume fraction]Ordered By: Art Bianchi on 11-07-2022 Hematocrit (Bld) [Volume fraction]43.2 %36.0-46.0[facility] HospitalHemoglobin [Mass/volume] in BloodOrdered By: Art Bianchi on 11-07-2022 Hemoglobin (Bld) [Mass/Vol]14.8 g/dL12.0-16.0[facility] Ketones Auto test strip (U) [Mass/Vol]Ordered By: Art Bianchi on 11-07-2022 Ketones (U) [Mass/Vol]1+NegativeZanesville City HospitalLeukocytes [#/volume] corrected for nucleated erythrocytes in Blood by Automated coun Ordered By: Art Bianchi on 79-90-3368ZPR corrected for nucl RBC Auto (Bld) [#/Vol]10.3 10*3/uL4.5-13.5FKettering Health MiamisburgLymphocytes Auto (Bld) [#/Vol]Ordered By: Art Bianchi on 50-30-0511Qqdgbyykdoh (Bld) [#/Vol]2.1 10*3/uL1.20-4.8[facility] HospitalLymphocytes/100 WBC Auto (Bld) Ordered By: Art Bianchi on 78-51-2006Pxehbjyybyb/100 WBC (Bld)20.8 %.[facility] Auto (RBC) [Entitic mass]Ordered By: Art Bianchi on 93-79-5720VXP (RBC) [Entitic mass]28.8 pg25.0-35.0[facility] HospitalMCHC Auto (RBC) [Mass/Vol]Ordered By: Art Bianchi on 78-68-5376XCQZ (RBC) [Mass/Vol]34.3 g/dL31.0-37.0[facility] HospitalMCV Auto (RBC) [Entitic vol]Ordered By: Art Bianchi on 11-67-6813FBI (RBC) [Entitic vol]84.1 fL 78-102Z[facility] HospitalMonocyte distribution width [Entitic volume] in Blood by AutomatedOrdered By: Art Bianchi on 17-92-1756Kuyjotmp distribution width Auto (Bld) [Entitic vol]17.07 %0.00-20.00[facility] HospitalMonocytes Auto (Bld) [#/Vol]Ordered By: Art Bianchi on 11-07-2022 Monocytes (Bld) [#/Vol]0.8 10*3/uL0.1-1.00[facility] Monocytes/100 WBC Auto (Bld)Ordered By: Art Bianchi on 09-29-1377Eeyipaiqu/100 WBC (Bld)8.1 %.[facility] HospitalNeutrophils Auto (Bld) [#/Vol] Ordered By: Art Bianchi on 56-59-6793Atkfsvrgboj (Bld) [#/Vol]7.1 10*3/uL1.2-7.7 [facility] HospitalNeutrophils/100 WBC Auto (Bld)Ordered By: Art Bianchi on 55-95-4869Kumdyfqrsdw/100 WBC (Bld)68.9 %.[facility] HospitalNitrite Test strip Ql (U)Ordered By: Art Bianchi on 67-95-5340Dagabhl Ql (U)NegativeNegativeZanesville City HospitalNo Panel InformationOrdered By: Art Bianchi on 99-13-23475-8 [LPF]0-8[facility]> 60 mL/MinZanesville City Hospital43.0 U/K39-34DqskqggntZanesville City Hospital104.35[facility] HospitalNucleated erythrocytes [Presence] in Blood by Automated countOrdered By: Art Bianchi on 32-79-5172Hbpoizopk RBC Auto Ql (Bld)0.3 /100{WBC}0-0.5FKettering Health MiamisburgPlatelet mean volume Auto (Bld) [Entitic vol]Ordered By: Art Bianchi on 07-93-5076Lavtztcw mean volume (Bld) [Entitic vol]8.4 fL6.3-10.7FK[facility] Platelets Auto (Bld) [#/Vol]Ordered By: Art Bianchi on 00-55-8861Uwzudgwqe (Bld) [#/Vol]308 10*3/zE284-126McdmyazofZanesville City HospitalProtein Auto test strip (U) [Mass/Vol]Ordered By: Art Bianchi on 29-29-5116Dzrhanb (U) [Mass/Vol] Trace mg/dLNegMary Rutan HospitalProtein [Mass/volume] in Serum or PlasmaOrdered By: Art Bianchi on 16-28-3910Jvmpduz [Mass/Vol]7.3 g/dL 6.1-7.9[facility] HospitalRBC Auto (Bld) [#/Vol]Ordered By: Art Bianchi on 96-97-5358IES (Bld) [#/Vol]5.14 10*6/uL4.10-5.10[facility] Centererum or plasma alanine aminotransferase measurement without P-5'-P (enzymatic activiOrdered By: Art Bianchi on 69-13-9811LIP No additional P-5'-P [Catalytic activity/Vol]24 U/P15-72FhsilpcpcCincinnati VA Medical Centererum or plasma albumin/globulin mass ratioOrdered By: Art Bianchi on 11-07-2022 Albumin/Globulin [Mass ratio]1.7 {ratio}[facility] Centererum or plasma alkaline phosphatase measurement (enzymatic activity/volume)Ordered By: Art Bianchi on 64-04-5687EUV [Catalytic activity/Vol]60 U/K39-25AoaukovtiCincinnati VA Medical Centererum or plasma anion gap determinationOrdered By: Art Bianchi on 25-80-7590Ukihr gap [Moles/Vol]12.2 mmol/L6.0-15.0[facility] Centererum or plasma aspartate aminotransferase measurement (enzymatic activity/volume)Ordered By: Art Bianchi on 86-77-4837IVY [Catalytic activity/Vol]25 U/X24-82NhnbtrjhoCincinnati VA Medical Centererum or plasma calcium measurement (mass/volume)Ordered By: Art Bianchi on 04-35-6426Qnnjiun [Mass/Vol] 9.6 mg/dL8.2-10.2FNationwide Children's Hospitalerum or plasma chloride measurement (moles/volume)Ordered By: Art Bianchi on 82-17-6617Yfskapvy [Moles/Vol]98 mmol/Y80-586ZrcuvuujbCincinnati VA Medical Centererum or plasma creatinine measurement with calculation of estimated glomerular filtrOrdered By: Art Bianchi on 91-79-3197Njbwkgkawm and Glomerular filtration rate.predicted panel (S/P/Bld)0.84 mg/dL0.44-1.03[facility] Centererum or plasma glucose measurement (mass/volume)Ordered By: Art Bianchi on 11-07-2022 Glucose [Mass/Vol]106 mg/pW55-716VrxwuzljiCincinnati VA Medical Centererum or plasma potassium measurement (moles/volume)Ordered By: Art Bianchi on 11-07-2022 Potassium [Moles/Vol]3.2 mmol/L3.5-5.1FNationwide Children's Hospitalerum or plasma sodium measurement (moles/volume)Ordered By: Art Bianchi on 11-07-2022 Sodium [Moles/Vol]132 mmol/U714-542OtvahigbzCincinnati VA Medical Centererum or plasma total bilirubin measurement (mass/volume)Ordered By: Art Bianchi 15-21-3020Yqbmyqxub [Mass/Vol]0.8 mg/dL0.3-1.2[facility] Serum or plasma total carbon dioxide measurement (moles/volume)Ordered By: Art Bianchi on 96-67-4390DT7 [Moles/Vol]25.0 mmol/L22.0-30.0[facility] Centererum or plasma urea nitrogen measurement (mass/volume)Ordered By: Art Bianchi on 40-36-9659Lmbb nitrogen [Mass/Vol]6 mg/dL9-23[facility] Centerpecific gravity Auto test strip (U) [Rel density]Ordered By: Art Bianchi on 60-47-3143Zkvvbvsb gravity (U) [Rel density]1.0141.001-1.030 [facility] Centerquamous epithelial cells detection in urine sediment by light microscopyOrdered By: Art Bianchi on 01-31-0788Kcnwwelszf cells.squamous LM Ql (Urine sed)5-9 [HPF]0-2FK[facility] Urine bacteria detection by automated methodOrdered By: Art Bianchi on 26-30-1374Xaffiztf Auto Ql (U)None seenNone SeenZanesville City HospitalUrine clarity by refractometry automatedOrdered By: Art Bianchi on 94-55-9826Gibrauy Refractometry automated (U)ClearCleParkview HealthUrine glucose measurement by automated test strip (mass/volume) Ordered By: Art Bianchi on 20-20-1357Ftcjdmt Auto test strip (U) [Mass/Vol] Normal mg/dLNormalZanesville City HospitalUrine hemoglobin detection by automated test stripOrdered By: Art Bianchi on 08-40-9841Icwhwbrkkh Auto test strip Ql (U)NegativeNegMary Rutan HospitalUrine leukocyte esterase detection by automated test stripOrdered By: Art Bianchi on 11-07-2022 Leukocyte esterase Auto test strip Ql (U)NegativeNegMary Rutan HospitalUrobilinogen Auto test strip (U) [Mass/Vol]Ordered By: Art Bianchi on 66-36-9066Qlngjnfudtxf (U) [Mass/Vol]Normal mg/dLNormalZanesville City HospitalWBC Auto (Bld) [#/Vol]Ordered By: Art Bianchi on 08-00-2987HTK (Bld) [#/Vol]10.3 10*3/uL4.5-13.5FKettering Health MiamisburgpH Auto test strip (U)Ordered By: Art Bianchi on 24-02-5922oI (U)8.5 [pH]5.0-9.0[facility] HospitalUrine culture routineOrdered By: Colten Fry on 57-60-8158Hxrpwisp identified Cx Nom (U)2 DaysZanesville City Hospital Albumin [Mass/volume] in Serum or PlasmaOrdered By: Colten Fry on 11-02-2022 Albumin [Mass/Vol]4.8 g/dL3.2-5.5FK[facility] Health MiamisburgAmphetamine Screen Ql (U)Ordered By: Colten Fry on 57-19-9932Dszfyjyudbjc Ql (U)Negative NegativeZanesville City HospitalAutomated erythrocytes count in urine sediment (number/area)Ordered By: Colten Fry on 35-78-1304SYH Auto (Urine sed) [#/Area]20-49 [HPF]0-4FKettering Health MiamisburgAutomated leukocytes count in urine sediment (number/area)Ordered By: Colten Fry on 21-12-8852JUR Auto (Urine sed) [#/Area]5-9 [HPF]0-4FK[facility] Barbiturates [Presence] in UrineOrdered By: oClten Fry on 11-02-2022 Barbiturates Ql (U)NegativeNegativeZanesville City HospitalBasophils Auto (Bld) [#/Vol]Ordered By: Colten Fry on 65-56-7375Nhvimmtxx (Bld) [#/Vol] 0.1 10*3/uL0.0-0.1FK[facility] Health MiamisburgBasophils/100 WBC Auto (Bld) Ordered By: Colten Fry on 03-30-3700Syvjhpezf/100 WBC (Bld)0.5 %.[facility] HospitalBenzodiazepines [Presence] in UrineOrdered By: Colten Fry on 24-83-0666Avzqwmuzaswvjre Ql (U)NegativeNegativeZanesville City HospitalBilirubin Test strip Ql (U)Ordered By: Colten Fry on 11-02-2022 Bilirubin Ql (U)NegativeNegMary Rutan HospitalCannabinoids [Presence] in Urine by Screen methodOrdered By: Colten Fry on 11-02-2022 Cannabinoids Screen Ql (U)PositiveNegativeZanesville City HospitalColor Auto (U)Ordered By: Colten Fry on 54-78-1250Lhptc (U)YellowYellowZanesville City HospitalEosinophils Auto (Bld) [#/Vol]Ordered By: Colten Fry on 15-99-7223Sbrcutddowi (Bld) [#/Vol]0.3 10*3/uL0.0-0.7FKettering Health MiamisburgEosinophils/100 WBC Auto (Bld)Ordered By: Colten Fry on 22-56-5575Qarntaeuqof/100 WBC (Bld)2.1 %.[facility] Erythrocyte distribution width Auto (RBC) [Ratio]Ordered By: Colten Fry on 99-37-0770Mvgvjxqeiep distribution width (RBC) [Ratio]13.7 %11.9-15.3FKettering Health MiamisburgEstimated glomerular filtration rate (GFR) non- AmericanOrdered By: Colten Fry on 05-48-5603OER/1.73 sq M.predicted among non-blacks MDRD (S/P/Bld) [Vol rate/Area]> 60 mL/MinZanesville City HospitalGlobulin Calc (S) [Mass/Vol]Ordered By: Colten Fry on 11-02-2022 Globulin (S) [Mass/Vol]3.1 g/dLZanesville City HospitalHCG ( test) IA.rapid Ql (U)Ordered By: Colten Fry on 39-23-1091UQU ( test) Ql (U)NegativeZanesville City HospitalHematocrit Auto (Bld) [Volume fraction]Ordered By: Colten Fry on 07-55-5916Etrtvzcqzf (Bld) [Volume fraction]45.3 %36.0-46.0Z[facility] HospitalHemoglobin [Mass/volume] in BloodOrdered By: Colten Fry on 24-88-5419Zgskfqbcko (Bld) [Mass/Vol]15.4 g/dL12.0-16.0Z[facility] HospitalKetones Auto test strip (U) [Mass/Vol]Ordered By: Colten Fry on 79-47-2712Cunwvry (U) [Mass/Vol]3+NegativeZanesville City HospitalLeukocytes [#/volume] corrected for nucleated erythrocytes in Blood by Automated counOrdered By: Colten Fry on 44-34-3766YOF corrected for nucl RBC Auto (Bld) [#/Vol]11.7 10*3/uL4.5-13.5FKettering Health MiamisburgLymphocytes Auto (Bld) [#/Vol] Ordered By: Colten Fry on 29-08-1022Pqrdtmzvagc (Bld) [#/Vol]2.3 10*3/uL 1.20-4.8[facility] HospitalLymphocytes/100 WBC Auto (Bld)Ordered By: Colten Fry on 40-06-5337Zmkqltwezvd/100 WBC (Bld)19.6 %.[facility] Auto (RBC) [Entitic mass]Ordered By: Colten Fry on 86-04-2662OPD (RBC) [Entitic mass]28.4 pg25.0-35.0[facility] HospitalMCHC Auto (RBC) [Mass/Vol]Ordered By: Colten Fry on 39-85-8456LBUK (RBC) [Mass/Vol]34.0 g/dL31.0-37.0[facility] HospitalMCV Auto (RBC) [Entitic vol]Ordered By: Colten Fry on 56-86-9390MJS (RBC) [Entitic vol]83.3 bI24-098JzfpmnsxfZanesville City HospitalMonocytes Auto (Bld) [#/Vol] Ordered By: Colten Fry on 96-57-8567Eashqermf (Bld) [#/Vol]1.0 10*3/uL 0.1-1.00[facility] HospitalMonocytes/100 WBC Auto (Bld)Ordered By: Colten Fry on 85-53-9440Vpkpiwtom/100 WBC (Bld)8.5 %.[facility] HospitalNeutrophils Auto (Bld) [#/Vol]Ordered By: Colten Fry on 79-52-0062Tjyacaqjdws (Bld) [#/Vol]8.1 10*3/uL1.2-7.7FKettering Health MiamisburgNeutrophils/100 WBC Auto (Bld)Ordered By: Colten Fry on 11-02-2022 Neutrophils/100 WBC (Bld)69.3 %.[facility] HospitalNitrite Test strip Ql (U)Ordered By: Colten Fry on 89-03-4573Ssmhgkp Ql (U)Negative NegativeZanesville City HospitalNo Panel InformationOrdered By: Cotlen Fry on -19 [LPF]0-8[facility] HospitalNegative [facility]> 60 mL/MinZanesville City Hospital100.26[facility] HospitalNo Panel InformationOrdered By: Robert Bolanos on .6 mg/dL1.6-2.6FK[facility] Nucleated erythrocytes [Presence] in Blood by Automated countOrdered By: Colten Fry on 52-19-0672Gfdukpdph RBC Auto Ql (Bld)0.1 /100{WBC}0-0.5FKettering Health MiamisburgPhencyclidine Screen Ql (U)Ordered By: Colten Fry on 56-45-2526Tmqhsmhtxavva Ql (U)NegativeNegMary Rutan Hospital Platelet mean volume Auto (Bld) [Entitic vol]Ordered By: Colten Fry on 30-08-5348Hfgdkxnk mean volume (Bld) [Entitic vol]7.9 fL6.3-10.7FKettering Health MiamisburgPlatelets Auto (Bld) [#/Vol]Ordered By: Colten Fry on 98-65-1262Lldxcdqnz (Bld) [#/Vol]292 10*3/gI350-358PtogeooppZanesville City HospitalProtein Auto test strip (U) [Mass/Vol]Ordered By: Colten Fry on 50-97-0728Aabldig (U) [Mass/Vol]30 mg/dLNegativeZanesville City HospitalProtein [Mass/volume] in Serum or PlasmaOrdered By: Colten Fry on 12-86-9080Tvpzaok [Mass/Vol]7.9 g/dL6.1-7.9Z[facility] HospitalRBC Auto (Bld) [#/Vol]Ordered By: Colten Fry on 23-72-6487TUY (Bld) [#/Vol]5.43 10*6/uL4.10-5.10[facility] Centererum or plasma alanine aminotransferase measurement without P-5'-P (enzymatic activiOrdered By: Colten Fry on 87-57-5335KBA No additional P-5'-P [Catalytic activity/Vol]20 U/L10-60 [facility] Centererum or plasma albumin/globulin mass ratio Ordered By: Colten Fry on 64-62-7159Nijugfz/Globulin [Mass ratio]1.5 {ratio} [facility] Centererum or plasma alkaline phosphatase measurement (enzymatic activity/volume)Ordered By: Colten Fry on 11-02-2022 ALP [Catalytic activity/Vol]65 U/B62-84VmdqbmdgkCincinnati VA Medical Centererum or plasma anion gap determinationOrdered By: Colten Fry on 77-25-7388Smdof gap [Moles/Vol]14.6 mmol/L6.0-15.0[facility] Centererum or plasma aspartate aminotransferase measurement (enzymatic activity/volume)Ordered By: Colten Fry on 90-23-4350NAH [Catalytic activity/Vol]19 U/Q66-38AhzfbhvtaCincinnati VA Medical Centererum or plasma calcium measurement (mass/volume)Ordered By: Colten Fry on 54-09-0409Gfbakpi [Mass/Vol]9.6 mg/dL8.2-10.2FNationwide Children's Hospitalerum or plasma chloride measurement (moles/volume) Ordered By: Colten Fry on 05-32-6496Nicqldjv [Moles/Vol]95 mmol/L95-114 [facility] Centererum or plasma creatinine measurement with calculation of estimated glomerular filtrOrdered By: Colten Fry on 11-02-2022 Creatinine and Glomerular filtration rate.predicted panel (S/P/Bld)0.88 mg/dL 0.44-1.03[facility] Centererum or plasma glucose measurement (mass/volume)Ordered By: Colten Fry on 77-79-8747Cnamxps [Mass/Vol]95 mg/dL 70-100[facility] Centererum or plasma potassium measurement (moles/volume)Ordered By: Colten Fry on 23-41-4665Aqgobjvgs [Moles/Vol]2.9 mmol/L3.5-5.1FNationwide Children's Hospitalerum or plasma sodium measurement (moles/volume)Ordered By: Colten Fry on 95-63-5486Qbwppt [Moles/Vol]134 mmol/P561-414HhdhkvafcCincinnati VA Medical Centererum or plasma total bilirubin measurement (mass/volume)Ordered By: Colten Fry on 33-02-3582Mxyvmuukz [Mass/Vol]1.8 mg/dL0.3-1.2FNationwide Children's Hospitalerum or plasma total carbon dioxide measurement (moles/volume)Ordered By: Colten Fry on 38-14-1131YI4 [Moles/Vol]27.3 mmol/L22.0-30.0[facility] Serum or plasma urea nitrogen measurement (mass/volume)Ordered By: Colten Fry on 47-52-5425Xvvz nitrogen [Mass/Vol]24 mg/dL9-23[facility] Centerpecific gravity Auto test strip (U) [Rel density]Ordered By: Colten Fry on 74-04-9452Yktjdcea gravity (U) [Rel density]1.0251.001-1.030[facility] Centerquamous epithelial cells detection in urine sediment by light microscopyOrdered By: Colten Fry on 55-39-7301Edqeanhngz cells.squamous LM Ql (Urine sed)10-19 [HPF]0-[address] [place], [place] [address]Urine bacteria detection by automated methodOrdered By: Colten Fry on 79-39-4385Asvgokjj Auto Ql (U)None seenNone SeenZanesville City HospitalUrine clarity by refractometry automatedOrdered By: Colten Fry on 92-92-1135Bgsrvax Refractometry automated (U)CloudyClearFKettering Health MiamisburgUrine cocaine detectionOrdered By: Colten Fry on 15-69-2973Psuhryg Ql (U)Negative NegativeZanesville City HospitalUrine culture routineOrdered By: Colten Fry on 94-72-7155Jklypgtb identified Cx Nom (U)2 DaysZanesville City HospitalUrine culture routineOrdered By: Art Bianchi on 85-79-3049Qvmrsgfc identified Cx Nom (U)2 DaysZanesville City HospitalUrine glucose measurement by automated test strip (mass/volume)Ordered By: Colten Fry on 47-30-0728Onieady Auto test strip (U) [Mass/Vol]Normal mg/dLNoCleveland Clinic FoundationUrine hemoglobin detection by automated test stripOrdered By: Colten Fry on 86-81-3100Vmousnckig Auto test strip Ql (U)3+Negative [facility] HospitalUrine leukocyte esterase detection by automated test stripOrdered By: Colten Fry on 74-03-3208Krjxywyei esterase Auto test strip Ql (U)2+NegativeZanesville City HospitalUrobilinogen Auto test strip (U) [Mass/Vol]Ordered By: Colten Fry on 76-35-4304Cimadtmzjgoy (U) [Mass/Vol]Normal mg/dLNoCleveland Clinic FoundationWBC Auto (Bld) [#/Vol]Ordered By: Colten Fry on 21-40-0769IUV (Bld) [#/Vol]11.7 10*3/uL 4.5-13.5FKettering Health MiamisburgpH Auto test strip (U)Ordered By: Colten Fry on 49-44-4679sY (U)7.0 [pH]5.0-9.0[facility] HospitalAlbumin [Mass/volume] in Serum or PlasmaOrdered By: Art Bianchi on 98-11-2406Dmgyctx [Mass/Vol]5.1 g/dL3.2-5.5FKet[facility] Automated erythrocytes count in urine sediment (number/area)Ordered By: Art Bianchi on 85-90-1970XLH Auto (Urine sed) [#/Area]Innumerable [HPF]0-4FKettering Health MiamisburgAutomated leukocytes count in urine sediment (number/area)Ordered By: Art Bianchi on 63-29-5814HUM Auto (Urine sed) [#/Area] 10-19 [HPF]0-4FKettering Health MiamisburgBasophils Auto (Bld) [#/Vol] Ordered By: Art Bianchi on 19-88-8981Isdmkraar (Bld) [#/Vol]0.0 10*3/uL0.0-0.1 [facility] HospitalBasophils/100 WBC Auto (Bld)Ordered By: Art Bianchi on 52-88-2069Nencidadi/100 WBC (Bld)0.3 %.[facility] HospitalBilirubin Test strip Ql (U)Ordered By: Art Bianchi on 81-07-0105Pvgvtsfuf Ql (U)NegativeNegativeZanesville City HospitalColor Auto (U)Ordered By: Art Bianchi on 46-67-6329Fbgrd (U)RedYellowZanesville City Hospital Eosinophils Auto (Bld) [#/Vol]Ordered By: Art Bianchi on 96-35-5749Rgxbqhbjyjv (Bld) [#/Vol]0.1 10*3/uL0.0-0.7FKettering Health MiamisburgEosinophils/100 WBC Auto (Bld)Ordered By: Art Bianchi on 90-59-4709Thzrgdemria/100 WBC (Bld)1.0 %.[facility] HospitalErythrocyte distribution width Auto (RBC) [Ratio]Ordered By: Art Bianchi on 94-39-3075Sznlqnrulqb distribution width (RBC) [Ratio]14.0 %11.9-15.3FKettering Health MiamisburgEstimated glomerular filtration rate (GFR) non- AmericanOrdered By: Art Bianchi on 10-31-2022 GFR/1.73 sq M.predicted among non-blacks MDRD (S/P/Bld) [Vol rate/Area]> 60 mL/MinZanesville City HospitalGlobulin Calc (S) [Mass/Vol]Ordered By: Art Bianchi on 40-25-6320Qdazpbiw (S) [Mass/Vol]3.1 g/dLZanesville City HospitalHCG ( test) IA.rapid Ql (U)Ordered By: Art Bianchi on 47-23-8246JSB ( test) Ql (U)NegativeZanesville City Hospital Hematocrit Auto (Bld) [Volume fraction]Ordered By: Art Bianchi on 10-31-2022 Hematocrit (Bld) [Volume fraction]45.0 %36.0-46.0[facility] HospitalHemoglobin [Mass/volume] in BloodOrdered By: Art Bianchi on 10-31-2022 Hemoglobin (Bld) [Mass/Vol]15.2 g/dL12.0-16.0[facility] Ketones Auto test strip (U) [Mass/Vol]Ordered By: Art Bianchi on 10-31-2022 Ketones (U) [Mass/Vol]3+NegativeZanesville City HospitalLeukocytes [#/volume] corrected for nucleated erythrocytes in Blood by Automated coun Ordered By: Art Bianchi on 56-12-1495RSP corrected for nucl RBC Auto (Bld) [#/Vol]14.0 10*3/uL4.5-13.5FKettering Health MiamisburgLymphocytes Auto (Bld) [#/Vol]Ordered By: Art Bianchi on 08-85-1347Rplfripdqyd (Bld) [#/Vol]2.2 10*3/uL1.20-4.8[facility] HospitalLymphocytes/100 WBC Auto (Bld) Ordered By: Art Bianchi on 69-49-6730Unuziytzcvj/100 WBC (Bld)15.5 %.[facility] Auto (RBC) [Entitic mass]Ordered By: Art Bianchi on 06-05-6346VCG (RBC) [Entitic mass]28.6 pg25.0-35.0[facility] HospitalMCHC Auto (RBC) [Mass/Vol]Ordered By: Art Bianchi on 62-16-6864VALV (RBC) [Mass/Vol]33.7 g/dL31.0-37.0[facility] HospitalMCV Auto (RBC) [Entitic vol]Ordered By: Art Bianchi on 52-98-2966KZX (RBC) [Entitic vol]85.0 fL 78-102[facility] HospitalMonocyte distribution width [Entitic volume] in Blood by AutomatedOrdered By: Art Bianchi on 68-36-8594Nkmgxfww distribution width Auto (Bld) [Entitic vol]14.69 %0.00-20.00[facility] HospitalMonocytes Auto (Bld) [#/Vol]Ordered By: Art Bianchi on 10-31-2022 Monocytes (Bld) [#/Vol]1.3 10*3/uL0.1-1.00[facility] Monocytes/100 WBC Auto (Bld)Ordered By: Art Bianchi on 36-88-0552Nrucabulh/100 WBC (Bld)9.1 %.[facility] HospitalNeutrophils Auto (Bld) [#/Vol] Ordered By: Art Bianchi on 30-64-3409Ogrujtmvokq (Bld) [#/Vol]10.4 10*3/uL 1.2-7.7FKettering Health MiamisburgNeutrophils/100 WBC Auto (Bld)Ordered By: Art Bianchi on 33-06-4976Jwtreybosyv/100 WBC (Bld)74.1 %.[facility] HospitalNitrite Test strip Ql (U)Ordered By: Art Bianchi on 10-31-2022 Nitrite Ql (U)NegativeNegMary Rutan HospitalNo Panel InformationOrdered By: Art Bianchi on 89-94-05361-8 [LPF]0-8[facility]> 60 mL/MinZanesville City Hospital29.0 U/G41-02QhddeyvryZanesville City Hospital102.97[facility] HospitalNucleated erythrocytes [Presence] in Blood by Automated countOrdered By: Art Bianchi on 86-56-1897Yhhpnrljo RBC Auto Ql (Bld)0.1 /100{WBC}0-0.5FKettering Health MiamisburgPlatelet mean volume Auto (Bld) [Entitic vol]Ordered By: Art Bianchi on 85-94-6153Kpveuard mean volume (Bld) [Entitic vol]8.3 fL6.3-10.7 [facility] HospitalPlatelets Auto (Bld) [#/Vol]Ordered By: Art Bianchi on 02-31-5248Nouqttnor (Bld) [#/Vol]337 10*3/vC530-972QwmgdhagxZanesville City HospitalProtein Auto test strip (U) [Mass/Vol]Ordered By: Art Bianchi on 15-31-1982Adrdbpq (U) [Mass/Vol]100 mg/dLNegativeZanesville City HospitalProtein [Mass/volume] in Serum or PlasmaOrdered By: Art Bianchi on 81-04-6187Dsehovi [Mass/Vol]8.2 g/dL6.1-7.9[facility] HospitalRBC Auto (Bld) [#/Vol]Ordered By: Art Bianchi on 91-80-3333CWJ (Bld) [#/Vol]5.29 10*6/uL4.10-5.10[facility] Centererum or plasma alanine aminotransferase measurement without P-5'-P (enzymatic activiOrdered By: Art Bianchi on 81-07-7858IRU No additional P-5'-P [Catalytic activity/Vol]25 U/L10-60 [facility] Centererum or plasma albumin/globulin mass ratio Ordered By: Art Bianchi on 60-79-3920Siifxzy/Globulin [Mass ratio]1.6 {ratio} [facility] Centererum or plasma alkaline phosphatase measurement (enzymatic activity/volume)Ordered By: Art Bianchi on 09-99-1521VPI [Catalytic activity/Vol]62 U/X16-31VawjpbzocCincinnati VA Medical Centererum or plasma anion gap determinationOrdered By: Art Binachi on 05-26-1946Tqgna gap [Moles/Vol]16.8 mmol/L6.0-15.0[facility] Centererum or plasma aspartate aminotransferase measurement (enzymatic activity/volume)Ordered By: Art Bianchi on 66-99-4278QWI [Catalytic activity/Vol]25 U/G67-24TutzsvyzxCincinnati VA Medical Centererum or plasma calcium measurement (mass/volume)Ordered By: Art Bianchi on 41-15-9603Lclhmgz [Mass/Vol]9.9 mg/dL8.2-10.2FNationwide Children's Hospitalerum or plasma chloride measurement (moles/volume) Ordered By: Art Bianchi on 55-96-1513Tuheinbl [Moles/Vol]96 mmol/L95-114 [facility] Centererum or plasma creatinine measurement with calculation of estimated glomerular filtrOrdered By: Art Bianchi on 10-31-2022 Creatinine and Glomerular filtration rate.predicted panel (S/P/Bld)0.89 mg/dL 0.44-1.03[facility] Centererum or plasma glucose measurement (mass/volume)Ordered By: Art Bianchi on 11-28-4643Ghmaubr [Mass/Vol]120 mg/dL 70-100[facility] Centererum or plasma potassium measurement (moles/volume)Ordered By: Art Bianchi on 45-38-7531Wqitfvpyu [Moles/Vol]3.2 mmol/L3.5-5.1FNationwide Children's Hospitalerum or plasma sodium measurement (moles/volume)Ordered By: Art Bianchi on 06-79-8185Muwvjv [Moles/Vol]132 mmol/L 136-146[facility] Centererum or plasma total bilirubin measurement (mass/volume)Ordered By: Art Bianchi on 95-40-1347Uutqlrzml [Mass/Vol]1.7 mg/dL0.3-1.2FNationwide Children's Hospitalerum or plasma total carbon dioxide measurement (moles/volume)Ordered By: Art Bianchi on 10-31-2022 CO2 [Moles/Vol]22.4 mmol/L22.0-30.0[facility] Centererum or plasma urea nitrogen measurement (mass/volume)Ordered By: Art Bianchi on 39-92-0182Qqzo nitrogen [Mass/Vol]28 mg/dL9-23[facility] Specific gravity Auto test strip (U) [Rel density]Ordered By: Art Bianchi on 70-59-8440Ypbmshbh gravity (U) [Rel density]1.0301.001-1.030[facility] Centerquamous epithelial cells detection in urine sediment by light microscopyOrdered By: Art Bianchi on 43-03-6032Zqgszhaags cells.squamous LM Ql (Urine sed)10-19 [HPF]0-2FKettering Health MiamisburgUrine bacteria detection by automated methodOrdered By: Art Bianchi on 68-55-2210Ohltgsnm Auto Ql (U)None seenNone SeenZanesville City HospitalUrine clarity by refractometry automatedOrdered By: Art Bianchi on 58-61-8728Vxyxxxd Refractometry automated (U)CloudyClearFKettering Health MiamisburgUrine culture routineOrdered By: Art Bianchi 30-55-5547Dmzklwnf identified Cx Nom (U)2 DaysZanesville City HospitalUrine glucose measurement by automated test strip (mass/volume)Ordered By: Art Bianchi on 51-43-8788Mynohbp Auto test strip (U) [Mass/Vol]Normal mg/dLNormalZanesville City HospitalUrine hemoglobin detection by automated test stripOrdered By: Art Bianchi on 74-01-7219Bswxjawkga Auto test strip Ql (U)3+NegativeZanesville City HospitalUrine leukocyte esterase detection by automated test stripOrdered By: Art Bianchi on 85-61-5392Crupfjikq esterase Auto test strip Ql (U)2+Negative [facility] HospitalUrobilinogen Auto test strip (U) [Mass/Vol] Ordered By: Art Bianchi on 75-58-5523Zcdcrbussory (U) [Mass/Vol]Normal mg/dL NormalZanesville City HospitalWBC Auto (Bld) [#/Vol]Ordered By: Art Bianchi on 88-24-8632AUF (Bld) [#/Vol]14.0 10*3/uL4.5-13.5FKettering Health MiamisburgpH Auto test strip (U)Ordered By: Art Bianchi on 35-49-7304oR (U) 6.5 [pH]5.0-9.0[facility] HospitalBasophils Auto (Bld) [#/Vol] Ordered By: Ravi Arguello on 15-86-5983Nslblmbby (Bld) [#/Vol]0.0 10*3/uL0.0-0.1 [facility] HospitalBasophils/100 WBC Auto (Bld)Ordered By: Ravi Arguello on 75-84-4669Iplolqkgr/100 WBC (Bld)0.3 %.[facility] HospitalBody fluid albumin measurement (mass/volume)Ordered By: Ravi Arguello on 54-99-3126Gtmhefe (Body fld) [Mass/Vol]5.2 g/dL3.2-5.5FKet[facility] Health MiamisburgCreatinine and Glomerular filtration rate.predicted panel (S/P/Bld) Ordered By: Ravi Arguello on 48-86-9723Blfimvzumh [Mass/Vol]0.85 mg/dL0.44-1.03 [facility] HospitalDirect bilirubin measurementOrdered By: Ravi Arguello on 24-93-1545Hwyqjjmpq.direct [Mass/Vol]0.1 mg/dL0.0-0.4FKet[facility] Health MiamisburgEosinophils Auto (Bld) [#/Vol]Ordered By: Ravi Arguello on 30-03-8524Eopspoxbzzp (Bld) [#/Vol]0.0 10*3/uL0.0-0.7FKettering Health MiamisburgEosinophils/100 WBC Auto (Bld)Ordered By: Ravi Arguello on 10-29-2022 Eosinophils/100 WBC (Bld)0.1 %.[facility] HospitalErythrocyte distribution width Auto (RBC) [Ratio]Ordered By: Ravi Arguello on 10-29-2022 Erythrocyte distribution width (RBC) [Ratio]14.4 %11.9-15.3FKettering Health MiamisburgEstimated glomerular filtration rate (GFR) non- Ordered By: Ravi Arguello on 33-68-9731HJI/1.73 sq M.predicted among non-blacks MDRD (S/P/Bld) [Vol rate/Area]> 60 mL/MinZanesville City Hospital Globulin Calc (S) [Mass/Vol]Ordered By: Ravi Arguello on 05-60-7929Fccjqxwi (S) [Mass/Vol]3.7 g/dLZanesville City HospitalHematocrit Auto (Bld) [Volume fraction]Ordered By: Ravi Arguello on 44-05-4876Ldgrnjsqnu (Bld) [Volume fraction]42.9 %36.0-46.0[facility] HospitalHemoglobin [Mass/volume] in BloodOrdered By: Ravi Arguello on 45-08-5667Rmhpjurswu (Bld) [Mass/Vol]14.3 g/dL12.0-16.0[facility] HospitalLaboratory - Chemistry and Chemistry - challengeOrdered By: Ravi Arguello on 39-97-3682Hleqgs [Catalytic activity/Vol]25.0 U/H24-10WvpkupushZanesville City HospitalLeukocytes [#/volume] corrected for nucleated erythrocytes in Blood by Automated coun Ordered By: Ravi Arguello on 58-87-5201LIJ corrected for nucl RBC Auto (Bld) [#/Vol]13.7 10*3/uL4.5-13.5FKettering Health MiamisburgLymphocytes Auto (Bld) [#/Vol]Ordered By: Ravi Arguello on 57-91-9626Clynolzvzhm (Bld) [#/Vol]1.7 10*3/uL1.20-4.8[facility] HospitalLymphocytes/100 WBC Auto (Bld) Ordered By: Ravi Arguello on 92-15-6939Buvnzqcnwwt/100 WBC (Bld)12.4 %.[facility] Auto (RBC) [Entitic mass]Ordered By: Ravi Arguello on 19-43-5058WSY (RBC) [Entitic mass]28.4 pg25.0-35.0[facility] HospitalMCHC Auto (RBC) [Mass/Vol]Ordered By: Ravi Arguello on 26-28-0337VDMR (RBC) [Mass/Vol]33.3 g/dL31.0-37.0[facility] HospitalMCV Auto (RBC) [Entitic vol]Ordered By: Ravi Arguello on 32-04-9677QXC (RBC) [Entitic vol]85.1 oL94-616ZipuakibhZanesville City HospitalMonocyte distribution width [Entitic volume] in Blood by AutomatedOrdered By: Ravi Arguello on 13-23-6657Ibdnlpqy distribution width Auto (Bld) [Entitic vol]16.57 %0.00-20.00[facility] HospitalMonocytes Auto (Bld) [#/Vol]Ordered By: Ravi Arguello on 10-29-2022 Monocytes (Bld) [#/Vol]0.9 10*3/uL0.1-1.00[facility] Monocytes/100 WBC Auto (Bld)Ordered By: Ravi Arguello on 35-52-9097Xurpvutks/100 WBC (Bld)6.8 %.[facility] HospitalNeutrophils Auto (Bld) [#/Vol] Ordered By: Ravi Arguello on 52-19-7924Xlqpgrgsfxz (Bld) [#/Vol]11.0 10*3/uL 1.2-7.7FKettering Health MiamisburgNeutrophils/100 WBC Auto (Bld)Ordered By: Ravi Arguello on 57-12-3357Hmupajkagxh/100 WBC (Bld)80.4 %.[facility] HospitalNo Panel InformationOrdered By: Ravi Arguello on 10-29-2022 Estimated GFR ()> 60 mL/MinZanesville City Hospital Comment on above:GFR estimated reference range: According to KDOQI guidelines, <60 ml/min/1.73m2 is sufficient todiagnose a patient with chronic kidney disease.Pharmacy Creatinine Clearance (Ijxa524.83[facility]> 60 mL/MinZ[facility]ville City Hospital25.0 U/Q05-58JfbkyxdszZanesville City Hospital105.83[facility] HospitalNucleated erythrocytes [Presence] in Blood by Automated countOrdered By: Ravi Arguello on 13-33-7128Ojghrwhco RBC Auto Ql (Bld)0.0 /100{WBC}0-0.5FKettering Health MiamisburgPlatelet mean volume Auto (Bld) [Entitic vol]Ordered By: Ravi Arguello on 59-31-6082Gielcyfb mean volume (Bld) [Entitic vol]8.4 fL6.3-10.7 [facility] HospitalPlatelets Auto (Bld) [#/Vol]Ordered By: Ravi Arguello on 42-58-6526Jmsngxhui (Bld) [#/Vol]355 10*3/bW722-415TdzdklfuqZanesville City HospitalProtein [Mass/volume] in Serum or PlasmaOrdered By: Ravi Arguello on 04-49-3337Honvfvg [Mass/Vol]8.9 g/dL6.1-7.9[facility] RBC Auto (Bld) [#/Vol]Ordered By: Ravi Arguello on 46-44-3323QNZ (Bld) [#/Vol] 5.04 10*6/uL4.10-5.10[facility] Centererum or plasma alanine aminotransferase measurement without P-5'-P (enzymatic activiOrdered By: Ravi Arguello on 68-66-3712ICW No additional P-5'-P [Catalytic activity/Vol]24 U/L10-60 [facility] Centererum or plasma albumin/globulin mass ratio Ordered By: Ravi Arguello on 55-12-2805Akblxiz/Globulin [Mass ratio]1.4 {ratio} [facility] Centererum or plasma alkaline phosphatase measurement (enzymatic activity/volume)Ordered By: Ravi Arguello on 77-93-7193HRA [Catalytic activity/Vol]68 U/H58-55SjjbfsuovCincinnati VA Medical Centererum or plasma anion gap determinationOrdered By: Ravi Arguello on 27-45-6540Irpoc gap [Moles/Vol]19.9 mmol/L6.0-15.0[facility] Centererum or plasma aspartate aminotransferase measurement (enzymatic activity/volume)Ordered By: Ravi Arguello on 78-41-6689TTJ [Catalytic activity/Vol]20 U/M79-96YsrrlvrrhCincinnati VA Medical Centererum or plasma calcium measurement (mass/volume)Ordered By: Ravi Arguello on 28-33-0978Ocrknsn [Mass/Vol]10.4 mg/dL8.2-10.2FNationwide Children's Hospitalerum or plasma chloride measurement (moles/volume) Ordered By: Ravi Arguello on 21-38-4392Cusiswuy [Moles/Vol]100 mmol/L95-114 [facility] Centererum or plasma creatinine measurement with calculation of estimated glomerular filtrOrdered By: Ravi Arguello on 10-29-2022 Creatinine and Glomerular filtration rate.predicted panel (S/P/Bld)0.85 mg/dL 0.44-1.03[facility] Centererum or plasma glucose measurement (mass/volume)Ordered By: Ravi Arguello on 57-98-2319Wftcmuu [Mass/Vol]114 mg/dL 70-100[facility] HospitalComment on above:ADA recommended reference rangeRandom Glucose Reference Range is dependent on time and content of last meal. Glucose of more than 200 mg/dL in a nonstressed, ambulatory subject supports the diagnosisof Diabetes Mellitus.Serum or plasma non- glucuronidated bilirubin measurement (mass/volume)Ordered By: Ravi Arguello on 57-42-6699Zzoqugeks.indirect [Mass/Vol]1.1 mg/dLCincinnati VA Medical Centererum or plasma potassium measurement (moles/volume)Ordered By: Ravi Arguello on 47-62-5710Ufutfkgtq [Moles/Vol]3.3 mmol/L3.5-5.1FNationwide Children's Hospitalerum or plasma sodium measurement (moles/volume)Ordered By: Ravi Arguello on 88-59-1801Nlqsij [Moles/Vol]137 mmol/J276-883HhghnyqqrCincinnati VA Medical Centererum or plasma total bilirubin measurement (mass/volume)Ordered By: Ravi Arguello on 24-07-8649Cdndccmgk [Mass/Vol]1.2 mg/dL0.3-1.2FNationwide Children's Hospitalerum or plasma total carbon dioxide measurement (moles/volume)Ordered By: Ravi Arguello on 77-89-2808DU8 [Moles/Vol]20.4 mmol/L 22.0-30.0[facility] Centererum or plasma urea nitrogen measurement (mass/volume)Ordered By: Ravi Arguello on 05-93-9683Qygy nitrogen [Mass/Vol]21 mg/dL9-23[facility] HospitalWBC Auto (Bld) [#/Vol] Ordered By: Ravi Arguello on 34-61-6767BPL (Bld) [#/Vol]13.7 10*3/uL4.5-13.5 [facility] HospitalBasophils Auto (Bld) [#/Vol]Ordered By: Modesta Chand on 25-62-2643Xzlwneryf (Bld) [#/Vol]0.0 10*3/uL0.0-0.1 [facility] HospitalBasophils/100 WBC Auto (Bld)Ordered By: Modesta Chand on 11-88-2772Kptjtbvsm/100 WBC (Bld)0.3 %.[facility] HospitalBody fluid albumin measurement (mass/volume)Ordered By: Modesta Chand on 78-21-6146Gjespnf (Body fld) [Mass/Vol]4.7 g/dL3.2-5.5FKettering Health MiamisburgCreatinine and Glomerular filtration rate.predicted panel (S/P/Bld)Ordered By: Modesta Chand on 76-07-5819Owkfcbrbwi [Mass/Vol]0.90 mg/dL0.44-1.03[facility] HospitalEosinophils Auto (Bld) [#/Vol] Ordered By: Modesta Chand on 22-42-7915Kwlytqimjnc (Bld) [#/Vol]0.3 10*3/uL0.0-0.7FKettering Health MiamisburgEosinophils/100 WBC Auto (Bld) Ordered By: Modesta Chand on 00-25-4741Excjiobjckf/100 WBC (Bld)2.2 %. [facility] HospitalErythrocyte distribution width Auto (RBC) [Ratio]Ordered By: Modesta Chand on 04-89-0133Afzelzwiwrc distribution width (RBC) [Ratio]14.0 %11.9-15.3FKettering Health MiamisburgEstimated glomerular filtration rate (GFR) non- AmericanOrdered By: Modesta Chand on 17-24-2648XGX/1.73 sq M.predicted among non-blacks MDRD (S/P/Bld) [Vol rate/Area]> 60 mL/MinZanesville City HospitalGlobulin Calc (S) [Mass/Vol]Ordered By: Modesta Chand on 78-44-3985Yenzetxh (S) [Mass/Vol] 2.5 g/dLZanesville City HospitalHematocrit Auto (Bld) [Volume fraction] Ordered By: Modesta Chand on 79-33-1946Cljmsussed (Bld) [Volume fraction] 46.5 %36.0-46.0[facility] HospitalHemoglobin [Mass/volume] in BloodOrdered By: Modesta Chand on 81-45-7390Iammmbcmpj (Bld) [Mass/Vol] 15.6 g/dL12.0-16.0[facility] HospitalLaboratory - Chemistry and Chemistry - challengeOrdered By: Modesta Chand on 29-73-3162Pelvip [Catalytic activity/Vol]27.0 U/H94-85XwqnayrakZanesville City HospitalLaboratory - Hematology and Cell countsOrdered By: Modesta Chand on 08-27-2022 Nucleated RBC/100 WBC (Bld) [Ratio]0.1 %0-0.5FK[facility] Leukocytes [#/volume] in Blood by Automated countOrdered By: Modesta Chand on 36-62-7853WJW (Bld) [#/Vol]13.4 10*3/uL4.5-13.5FKettering Health MiamisburgLymphocytes Auto (Bld) [#/Vol]Ordered By: Modesta Chand on 36-42-5961Kmyjjsbimwj (Bld) [#/Vol]3.1 10*3/uL1.20-4.8[facility] HospitalLymphocytes/100 WBC Auto (Bld)Ordered By: Modesta Chand on 97-08-2926Okkmvjzakbw/100 WBC (Bld)22.9 %.[facility] Auto (RBC) [Entitic mass]Ordered By: Modesta Chand on 31-84-4204WEA (RBC) [Entitic mass]28.4 pg25.0-35.0[facility] HospitalMCHC Auto (RBC) [Mass/Vol]Ordered By: Modesta Chand on 04-62-0092BSZX (RBC) [Mass/Vol]33.5 g/dL31.0-37.0[facility] HospitalMCV Auto (RBC) [Entitic vol] Ordered By: Modesta Chand on 86-87-6586HWE (RBC) [Entitic vol]84.8 fL 78-102[facility] HospitalMonocytes Auto (Bld) [#/Vol]Ordered By: Modesta Chand on 57-02-4411Xhfavynmd (Bld) [#/Vol]1.2 10*3/uL0.1-1.00 [facility] HospitalMonocytes/100 WBC Auto (Bld)Ordered By: Modesta Chand on 93-38-9453Gordsckgv/100 WBC (Bld)9.1 %.[facility] HospitalNeutrophils Auto (Bld) [#/Vol]Ordered By: Modesta Chand on 70-87-1457Icqwbmiqbud (Bld) [#/Vol]8.8 10*3/uL1.2-7.7FKettering Health MiamisburgNeutrophils/100 WBC Auto (Bld)Ordered By: Modesta Chand on 96-85-9710Ebnstkyxfot/100 WBC (Bld)65.5 %.[facility] HospitalNo Panel InformationOrdered By: Modesta Chand on 04-15-1047Nmecnzisk GFR ()> 60 mL/MinZanesville City HospitalComment on above: GFR estimated reference range: According to KDOQI guidelines, <60 ml/min/1.73m2 is sufficient todiagnose a patient with chronic kidney disease.Pharmacy Creatinine Clearance (ChemN/[facility]13.4 10*3/uL 4.5-13.5FK[facility] Miamisburg0.1 %0-0.5FK[facility]burg> 60 mL/MinZanesville City Hospital27.0 U/N36-13BwjykjlmuZanesville City HospitalN/[facility] CampusPlatelet mean volume Auto (Bld) [Entitic vol]Ordered By: Modesta Chand on 32-79-5043Hgmqqvqa mean volume (Bld) [Entitic vol]8.9 fL6.3-10.7FK[facility] Platelets Auto (Bld) [#/Vol]Ordered By: Modesta Chand on 08-27-2022 Platelets (Bld) [#/Vol]373 10*3/kC624-307WjfknmugiZanesville City Hospital Protein [Mass/volume] in Serum or PlasmaOrdered By: Modesta Chand on 06-98-1194Gwluhca [Mass/Vol]7.2 g/dL6.1-7.9[facility] HospitalRBC Auto (Bld) [#/Vol]Ordered By: Modesta Chand on 69-91-8167OLI (Bld) [#/Vol] 5.49 10*6/uL4.10-5.10[facility] Centererum or plasma alanine aminotransferase measurement without P-5'-P (enzymatic activiOrdered By: Modesta Chand on 73-82-8953EAG No additional P-5'-P [Catalytic activity/Vol]20 U/A26-89NkhpsfwlxCincinnati VA Medical Centererum or plasma albumin/globulin mass ratioOrdered By: Modesta Chand on 08-27-2022 Albumin/Globulin [Mass ratio]1.9 {ratio}[facility] Centererum or plasma alkaline phosphatase measurement (enzymatic activity/volume)Ordered By: Modesta Chand on 59-31-4540JCN [Catalytic activity/Vol]63 U/L32-92 [facility] Centererum or plasma amylase measurement (enzymatic activity/volume)Ordered By: Modesta Chand on 21-21-0564Glareeq [Catalytic activity/Vol]25 U/U85-926NvpmejdlwCincinnati VA Medical Centererum or plasma anion gap determinationOrdered By: Modesta Chand on 30-54-6284Lushb gap [Moles/Vol]22.5 mmol/L6.0-15.0[facility] Centererum or plasma aspartate aminotransferase measurement (enzymatic activity/volume)Ordered By: Modesta Chand on 83-60-1387MEH [Catalytic activity/Vol]18 U/L10-42 [facility] Centererum or plasma calcium measurement (mass/volume)Ordered By: Modesta Chand on 63-61-2872Vjwgbzy [Mass/Vol]10.1 mg/dL8.2-10.2FNationwide Children's Hospitalerum or plasma chloride measurement (moles/volume)Ordered By: Modesta Chand on 34-25-5527Prspmnlg [Moles/Vol]89 mmol/O49-121AxpxrmhobCincinnati VA Medical Centererum or plasma creatinine measurement with calculation of estimated glomerular filtrOrdered By: Modesta Chand on 19-13-9162Pftzuekosh and Glomerular filtration rate.predicted panel (S/P/Bld)0.90 mg/dL0.44-1.03[facility] Centererum or plasma glucose measurement (mass/volume)Ordered By: Modesta Chand on 30-91-6744Ejtrfyg [Mass/Vol]76 mg/zZ51-873QzcccoideZanesville City HospitalComment on above:ADA recommended reference rangeRandom Glucose Reference Range is dependent on time and content of last meal. Glucose of more than 200 mg/dL in a nonstressed, ambulatory subject supports the diagnosisof Diabetes Mellitus.Serum or plasma potassium measurement (moles/volume)Ordered By: Modesta Chand on 70-79-5591Cyogqfjgh [Moles/Vol]3.7 mmol/L3.5-5.1 [facility] Centererum or plasma sodium measurement (moles/volume)Ordered By: Modesta Chand on 92-11-2907Blfadr [Moles/Vol]131 mmol/P544-463CtpbobzjyCincinnati VA Medical Centererum or plasma total bilirubin measurement (mass/volume)Ordered By: Modesta Chand on 73-89-4191Djjeoxhzv [Mass/Vol]1.6 mg/dL0.3-1.2FKettering Health MiamisburgComment on above: Samples from patients who have taken Naproxen have shown spurious elevation in Total Bilirubin levels. A metabolite of Naproxen, O-desmethylnaproxen, has been shown to interfere with the Solomon method for measuring Total Bilirubin.Serum or plasma total carbon dioxide measurement (moles/volume)Ordered By: Modesta Chand on 59-84-5895MT8 [Moles/Vol]23.2 mmol/L22.0-30.0 [facility] Centererum or plasma urea nitrogen measurement (mass/volume)Ordered By: Modesta Chand on 05-46-6072Nxat nitrogen [Mass/Vol]15 mg/dL9-23[facility] HospitalBasophils Auto (Bld) [#/Vol]Ordered By: Gregorio Carey on 61-69-2607Glfslgjku (Bld) [#/Vol]0.0 10*3/uL0.0-0.1FKettering Health MiamisburgBasophils/100 WBC Auto (Bld) Ordered By: Gregorio Carey on 50-23-6759Aanynhvpa/100 WBC (Bld)0.3 %. [facility] HospitalBlood hemoglobin measurement (mass/volume) Ordered By: Gregorio Carey on 90-66-1194Zjpwpqxtne (Bld) [Mass/Vol]13.1 g/dL12.0-16.0[facility] HospitalBlood leukocytes automated count (number/volume)Ordered By: Gregorio Carey on 99-82-5316NJB (Bld) [#/Vol] 9.7 10*3/uL4.5-13.5FKettering Health MiamisburgCreatinine and Glomerular filtration rate.predicted panel (S/P/Bld)Ordered By: Gregorio Carey on 71-51-0542Ohbfdyvikt [Mass/Vol]0.75 mg/dL0.44-1.03[facility] HospitalEosinophils Auto (Bld) [#/Vol]Ordered By: Gregorio Carey on 64-89-7038Zrrhckjlqfl (Bld) [#/Vol]0.1 10*3/uL0.0-0.7FKettering Health MiamisburgEosinophils/100 WBC Auto (Bld)Ordered By: Gregorio Carey on 11-83-1154Zwdgqiqevxy/100 WBC (Bld)1.0 %.[facility] Erythrocyte distribution width Auto (RBC) [Ratio]Ordered By: Gregorio Carey on 00-96-1750Qmgqujyptak distribution width (RBC) [Ratio]14.1 % 11.9-15.3FKettering Health MiamisburgEstimated glomerular filtration rate (GFR) non- AmericanOrdered By: Gregorio Carey on 06-07-0229AME/1.73 sq M.predicted among non-blacks MDRD (S/P/Bld) [Vol rate/Area]> 60 mL/Min [facility] HospitalHematocrit Auto (Bld) [Volume fraction]Ordered By: Gregorio Carey on 02-66-4976Pbiuqbkcli (Bld) [Volume fraction]39.6 % 36.0-46.0[facility] HospitalLaboratory - Hematology and Cell countsOrdered By: Gregorio Carey on 11-94-4238Hbrfmegbm RBC/100 WBC (Bld) [Ratio]0.0 %0-0.5FK[facility] MiamisburgLymphocytes Auto (Bld) [#/Vol] Ordered By: Gregorio Carey on 13-09-7769Pdxjazuegii (Bld) [#/Vol]2.0 10*3/uL1.20-4.8[facility] HospitalLymphocytes/100 WBC Auto (Bld) Ordered By: Gregorio Carey on 23-94-1033Zjxvfwgkzcb/100 WBC (Bld)20.5 %. [facility]H [facility] (RBC) [Entitic mass]Ordered By: Gregorio Carey on 87-91-1777UDW (RBC) [Entitic mass]28.0 pg25.0-35.0 [facility] HospitalMCHC Auto (RBC) [Mass/Vol]Ordered By: Gregorio Carey on 57-85-2289EEKM (RBC) [Mass/Vol]33.2 g/dL31.0-37.0 [facility] HospitalMCV Auto (RBC) [Entitic vol]Ordered By: Gregorio Carey on 82-68-3224UIS (RBC) [Entitic vol]84.5 oC86-882IqajecsbkZanesville City HospitalMonocytes Auto (Bld) [#/Vol]Ordered By: Gregorio Carey on 31-18-5984Khrvwdnyo (Bld) [#/Vol]0.8 10*3/uL0.1-1.00[facility] HospitalMonocytes/100 WBC Auto (Bld)Ordered By: Gregorio Carey on 82-57-9322Dsogzijtr/100 WBC (Bld)8.0 %.[facility] HospitalNeutrophils Auto (Bld) [#/Vol]Ordered By: Gregorio Carey on 99-30-6145Ykglnocrwhf (Bld) [#/Vol]6.8 10*3/uL1.2-7.7FKettering Health MiamisburgNeutrophils/100 WBC Auto (Bld)Ordered By: Gregorio Carey on 01-69-0189Qzuemhmqmnt/100 WBC (Bld)70.2 %.[facility] HospitalNo Panel InformationOrdered By: Gregorio Carey on 90-58-0731Lxhxpjmok GFR ()> 60 mL/MinZanesville City HospitalComment on above: GFR estimated reference range: According to KDOQI guidelines, <60 ml/min/1.73m2 is sufficient todiagnose a patient with chronic kidney disease.Pharmacy Creatinine Clearance (Qogy835.26[facility]9.7 10*3/uL 4.5-13.5[facility]burg0.0 %0-0.5FK[facility]burg> 60 mL/MinZanesville City Hospital117.26[facility] HospitalPlatelet mean volume Auto (Bld) [Entitic vol]Ordered By: Gregorio Carey on 58-68-0204Qcsxdcdl mean volume (Bld) [Entitic vol]8.6 fL 6.3-10.7FKettering Health MiamisburgPlatelets Auto (Bld) [#/Vol]Ordered By: Gregorio Carey on 85-25-8536Kgctplupf (Bld) [#/Vol]246 10*3/oT320-792 [facility] HospitalRBC Auto (Bld) [#/Vol]Ordered By: Gregorio Carey on 00-42-9798TZG (Bld) [#/Vol]4.69 10*6/uL4.10-5.10[facility] Centererum nuclear antibody titerOrdered By: Gregorio Carey on 36-52-1306Zgbtygu Ab (S) [Titer]Negative.[facility] Comment on above:Negative <1:80 Borderline 1:80 Positive >1:80ICAP nomenclature: AC-0For more information about Hep-2 cell patterns useANApatterns.org, the official website for theInternational Consensus on Antinuclear Antibody (EDMOND)Patterns (ICAP).Performed at: - [facility] [id number] Director: James Nelson PhD, Phone: [phone] or plasma anion gap determinationOrdered By: Gregorio Carey on 45-68-5805Fjqtt gap [Moles/Vol]17.0 mmol/L6.0-15.0[facility] Centererum or plasma beta choriogonadotropin measurement (units/volume)Ordered By: Gregorio Carey on 57-13-0163CGE.beta subunit Qnm[IU]/mLZanesville City HospitalComment on above:Approximate Approximate hCG Gestational Age Range (mIU/ml) (weeks) 0.2-1 5-50 1-2 50-500 2-3 100-5,000 3-4 500-10,000 4-5 1,000-50,000 5-6 10,000-100,000 6-8 15,000-200,000 8-12 10,000-100,000 Approximate Approximate hCG Gestational Age Range (mIU/ml) (weeks)0.2-1 5-50 1-2 50-500 2-3 100-5,000 3-4 500-10,000 4-5 1,000-50,000 5-6 10,000-100,000 6-8 15,000-200,000 8-12 10,000-100,000Serum or plasma calcium measurement (mass/volume)Ordered By: Gregorio Carey on 51-52-2805Aznvqat [Mass/Vol]9.4 mg/dL8.2-10.2FNationwide Children's Hospitalerum or plasma chloride measurement (moles/volume)Ordered By: Gregorio Carey on 07-46-5328Psjaseex [Moles/Vol]99 mmol/D66-626MvugsavkwCincinnati VA Medical Centererum or plasma creatinine measurement with calculation of estimated glomerular filtrOrdered By: Gregorio Carey on 63-20-1711Fcifpzsgps and Glomerular filtration rate.predicted panel (S/P/Bld)0.75 mg/dL0.44-1.03[facility] Centererum or plasma glucose measurement (mass/volume)Ordered By: Gregorio Carey on 12-88-2204Wtgexzp [Mass/Vol]90 mg/aK13-251UriqqtczmZanesville City HospitalComment on above:ADA recommended reference range Random [...] potassium measurement (moles/volume)Ordered By: Gregorio Carey on 57-50-5381Umxgfdopt [Moles/Vol]3.8 mmol/L3.5-5.1 [facility] Centererum or plasma sodium measurement (moles/volume)Ordered By: Gregorio Carey on 78-94-4964Wrmjyl [Moles/Vol] 134 mmol/P582-773FaempcjxtCincinnati VA Medical Centererum or plasma total carbon dioxide measurement (moles/volume)Ordered By: Gregorio Carey on 08-22-2022 CO2 [Moles/Vol]21.8 mmol/L22.0-30.0[facility] Centererum or plasma urea nitrogen measurement (mass/volume)Ordered By: Gregorio Carey on 02-19-0612Aiam nitrogen [Mass/Vol]7 mg/dL9-[facility] HospitalUrine culture routineOrdered By: Gregorio Carey on 08-22-2022 Bacteria identified Cx Nom (U)2 [facility]Urine culture routineOrdered By: Gilson Castro on 01-37-6220Hmlytnmd identified Cx Nom (U)2 [facility] HospitalUrine culture routineOrdered By: Colten Fry on 36-81-1436Bqrwhpev identified Cx Nom (U)2 [facility] HospitalAmphetamine Screen Ql (U)Ordered By: Gilson Castro on 63-06-7094Tstrrvakpxim Ql (U)NegativeNegativeZanesville City Hospital Automated erythrocytes count in urine sediment (number/area)Ordered By: Gilson Castro on 83-61-0431VZM Auto (Urine sed) [#/Area]None seen [HPF]0-4FKettering Health MiamisburgAutomated leukocytes count in urine sediment (number/area)Ordered By: Gilson Castro on 90-17-6875KLQ Auto (Urine sed) [#/Area]1-2 [HPF]0-4FKettering Health MiamisburgBarbiturates [Presence] in UrineOrdered By: Gilson Castro on 35-90-1304Ynmndodczcbc Ql (U)PositiveNegative [facility] HospitalBasophils Auto (Bld) [#/Vol]Ordered By: Gilson Castro on 60-76-2867Nhoygsqcw (Bld) [#/Vol]0.0 10*3/uL0.0-0.1FKettering Health MiamisburgBasophils/100 WBC Auto (Bld)Ordered By: Gilson Castro on 93-69-5823Pmfzivosc/100 WBC (Bld)0.4 %.[facility] Benzodiazepines [Presence] in UrineOrdered By: Gilson Castro on 08-20-2022 Benzodiazepines Ql (U)NegativeNegMary Rutan HospitalBilirubin Test strip Ql (U)Ordered By: Gilson Castro on 11-82-9154Atomnornl Ql (U) NegativeNegMary Rutan HospitalBlood anisocytosis detection Ordered By: Gilson Castro on 54-03-1001Vvonwklycnzb Ql (Bld)SlightZanesville City HospitalBlood hemoglobin measurement (mass/volume)Ordered By: Gilson Castro on 16-77-8689Bnjrrtktzq (Bld) [Mass/Vol]12.1 g/dL12.0-16.0 [facility] HospitalBlood leukocytes automated count (number/volume)Ordered By: Gilson Castro on 27-62-4597JIC (Bld) [#/Vol]10.9 10*3/uL4.5-13.5FKettering Health MiamisburgCOVID-19 Positive/Negative Ordered By: Ravi Arguello on 73-68-6459JIPZ-CoV-2 (COVID-19) N gene JANAK+probe Ql (Resp)NegativeNegMary Rutan HospitalComment on above:Testing for SARS-CoV-2 by RT-PCR This test was developed and its performance characteristics determined by [employer] ([employer]) and validated at the [facility]. This test has not been FDA [...] and its performance characteristics determined by [employer] ([employer]) and validated at the [facility]. This test has not been FDA [...] on 08-20-2022 SARS-CoV+SARS-CoV-2 (COVID-19) Ag IA.rapid Ql (Resp)NegativeNegMary Rutan HospitalComment on above:This is a duplicate Adia SARS Antigen (JOSE A) result to be used for statistical tracking purpose only.Cannabinoids [Presence] in Urine by Screen methodOrdered By: Gilson Castro on 08-20-2022 Cannabinoids Screen Ql (U)PositiveNegMary Rutan Hospital Comment on above:These are unconfirmed results [...] ng/mLColor Auto (U)Ordered By: Gilson Castro on 63-00-9229Jglja (U)YellowYellowZanesville City HospitalCreatinine and Glomerular filtration rate.predicted panel (S/P/Bld)Ordered By: Gilson Castro on 54-60-1099Phimdbyfiq [Mass/Vol]0.65 mg/dL0.44-1.03 [facility] HospitalEosinophils Auto (Bld) [#/Vol]Ordered By: Gilson Castro on 87-89-9490Inphxlfaolc (Bld) [#/Vol]0.0 10*3/uL0.0-0.7FKettering Health MiamisburgEosinophils/100 WBC Auto (Bld)Ordered By: Gilson Castro on 70-35-6756Ivlkcdegctb/100 WBC (Bld)0.3 %.[facility] Erythrocyte distribution width Auto (RBC) [Ratio]Ordered By: Gilson Castro on 00-18-7277Usqwjaacmmc distribution width (RBC) [Ratio]13.9 %11.9-15.3FKettering Health MiamisburgEstimated glomerular filtration rate (GFR) non- AmericanOrdered By: Gilson Castro on 42-08-3898KYI/1.73 sq M.predicted among non-blacks MDRD (S/P/Bld) [Vol rate/Area]> 60 mL/MinZanesville City HospitalHematocrit Auto (Bld) [Volume fraction]Ordered By: Gilson Castro on 55-03-1985Hrbnofgddy (Bld) [Volume fraction]36.8 %36.0-46.0[facility] HospitalKetones Auto test strip (U) [Mass/Vol]Ordered By: Gilson Castro on 17-56-3027Febltrq (U) [Mass/Vol]2+NegativeZanesville City Hospital Laboratory - Chemistry and Chemistry - challengeOrdered By: Gilson Castro on 06-36-7184Athyfgnal [Mass/Vol]1.9 mg/dL1.6-2.6FK[facility] - Drug toxicologyOrdered By: Gilson Castro on 79-03-5585Gtvpaop Ql (U)NegativeNegativeZanesville City HospitalLaboratory - Hematology and Cell countsOrdered By: Gilson Castro on 12-14-2811Suwlcktze RBC/100 WBC (Bld) [Ratio]0.0 %0-0.5FK[facility] MiamisburgLaboratory - UrinalysisOrdered By: Gilson Castro on 02-59-6341Zcufrxp casts LM Ql (Urine sed)None seen [LPF] 0-8[facility] HospitalLymphocytes Auto (Bld) [#/Vol]Ordered By: Gilson Castro on 76-27-3783Lnffgpjwnoo (Bld) [#/Vol]1.3 10*3/uL1.20-4.8[facility] HospitalLymphocytes/100 WBC Auto (Bld)Ordered By: Gilson Castro on 19-63-2345Mgniaesqpty/100 WBC (Bld)11.5 %.[facility] MCH Auto (RBC) [Entitic mass]Ordered By: Gilson Castro on 97-33-4059QWX (RBC) [Entitic mass]28.1 pg25.0-35.0[facility] HospitalMCHC Auto (RBC) [Mass/Vol]Ordered By: Gilson Castro on 54-05-5839NMUS (RBC) [Mass/Vol]32.9 g/dL 31.0-37.0[facility] HospitalMCV Auto (RBC) [Entitic vol]Ordered By: Gilson Castro on 84-10-6465LXN (RBC) [Entitic vol]85.5 vY94-268SkabajduyZanesville City HospitalMonocytes Auto (Bld) [#/Vol]Ordered By: Gilson Castro on 36-65-5071Vgmnxjskd (Bld) [#/Vol]0.4 10*3/uL0.1-1.00[facility] HospitalMonocytes/100 WBC Auto (Bld)Ordered By: Gilson Castro on 08-20-2022 Monocytes/100 WBC (Bld)3.7 %.[facility] HospitalNeutrophils Auto (Bld) [#/Vol]Ordered By: Gilson Castro on 05-70-8621Lpdqugbptnx (Bld) [#/Vol]9.2 10*3/uL1.2-7.7FKettering Health MiamisburgNeutrophils/100 WBC Auto (Bld) Ordered By: Gilson Castro on 37-14-3181Sgbcwwzswgn/100 WBC (Bld)84.1 %.[facility] HospitalNitrite Test strip Ql (U)Ordered By: Gilson Castro on 76-99-2354Oxapbzt Ql (U)NegativeNegativeZanesville City HospitalNo Panel InformationOrdered By: Gilson Castro on 62-01-2528Heig seen [LPF]0-8 [facility] HospitalNegativeNegMary Rutan HospitalEstimated GFR ()> 60 mL/MinZanesville City HospitalComment on above:GFR estimated reference range: According to KDOQI guidelines, <60 ml/min/1.73m2 is sufficient todiagnose a patient with chronic kidney disease.Pharmacy Creatinine Clearance (Xnec109.96[facility] HospitalPlatelet EstimateNormalNormUniversity Hospitals Samaritan Medical Center Platelet Morphology CommentNormalNormUniversity Hospitals Samaritan Medical CenterNormal NormalZanesville City Hospital1.9 mg/dL1.6-2.6FKet[facility] Health MiamisburgNo Panel InformationOrdered By: Ravi Arguello on 22-94-7112GFJA Antigen (LFIA)[facility] HospitalPhencyclidine Screen Ql (U) Ordered By: Gilson Castro on 73-48-7932Hbbjtaqwerzca Ql (U)NegativeNegative [facility] HospitalPlatelet mean volume Auto (Bld) [Entitic vol] Ordered By: Gilson Castro on 68-97-8441Fhckrajw mean volume (Bld) [Entitic vol] 8.6 fL6.3-10.7FKettering Health MiamisburgPlatelets Auto (Bld) [#/Vol] Ordered By: Gilson Castro on 37-84-8005Ihmczkzwi (Bld) [#/Vol]145 10*3/rT284-797 [facility] HospitalComment on above:Delta: 314 on 08/19/22 Protein Auto test strip (U) [Mass/Vol]Ordered By: Gilson Castro on 08-20-2022 Protein (U) [Mass/Vol]NegativeNegativeZanesville City HospitalRB Auto (Bld) [#/Vol]Ordered By: Gilson Castro on 85-50-0403TSH (Bld) [#/Vol]4.31 10*6/uL4.10-5.10[facility] morphologyOrdered By: Gilson Castro on 18-12-7303ATM morphology finding Nom (Bld)N/AFNationwide Children's Hospitalerum or plasma anion gap determinationOrdered By: Gilson Castro on 60-01-5486Huoih gap [Moles/Vol]15.2 mmol/L6.0-15.0[facility] Centererum or plasma calcium measurement (mass/volume)Ordered By: Gilson Castro on 03-37-5510Vykdtmh [Mass/Vol]8.6 mg/dL8.2-10.2FNationwide Children's Hospitalerum or plasma chloride measurement (moles/volume)Ordered By: Gilson Castro on 68-72-5187Eqtmdowx [Moles/Vol]101 mmol/A11-719GzimsjdxcCincinnati VA Medical Centererum or plasma glucose measurement (mass/volume)Ordered By: Gilson Castro on 15-21-6797Sloihml [Mass/Vol]96 mg/cD33-619LvqxdcyicZanesville City HospitalComment on above:ADA recommended reference range Random Glucose Reference Range is dependent on time and content of last meal. Glucose of more than 200 mg/dL in a nonstressed, ambulatory subject supports the diagnosis of Diabetes Mellitus.Serum or plasma potassium measurement (moles/volume)Ordered By: Gilson Castro on 44-83-0853Lzmuttxgx [Moles/Vol]3.1 mmol/L3.5-5.1FNationwide Children's Hospitalerum or plasma sodium measurement (moles/volume)Ordered By: Gilson Castro on 31-29-4096Xrsqud [Moles/Vol]135 mmol/D652-158LwozociscCincinnati VA Medical Centererum or plasma total carbon dioxide measurement (moles/volume)Ordered By: Gilson Castro on 45-54-2636BZ5 [Moles/Vol]21.9 mmol/L22.0-30.0[facility] Centererum or plasma urea nitrogen measurement (mass/volume)Ordered By: Gilson Castro on 08-20-2022 Urea nitrogen [Mass/Vol]11 mg/dL08-20[facility] Centerpecific gravity Auto test strip (U) [Rel density]Ordered By: Gilson Castro on 08-20-2022 Specific gravity (U) [Rel density]1.0081.001-1.030[facility] Medical Centerquamous epithelial cells detection in urine sediment by light microscopy Ordered By: Gilson Castro on 35-41-5819Zcnzlalmau cells.squamous LM Ql (Urine sed)1-2 [HPF]0-2FKettering Health MiamisburgUrine bacteria detection by automated methodOrdered By: Gilson Castro on 69-36-8230Motpgira Auto Ql (U)None seenNone SeenZanesville City HospitalUrine clarity by refractometry automatedOrdered By: Gilson Castro on 23-52-0114Ompibac Refractometry automated (U)ClearCleParkview HealthUrine cocaine detectionOrdered By: Gilson Castro on 99-08-7834Klfxlzg Ql (U)NegativeNegMary Rutan HospitalUrine glucose measurement by automated test strip (mass/volume) Ordered By: Gilson Castro on 72-37-5240Utcxqnh Auto test strip (U) [Mass/Vol] Normal mg/dLNoCleveland Clinic FoundationUrine hemoglobin detection by automated test stripOrdered By: Gilson Castro on 96-50-5961Arvrldzcel Auto test strip Ql (U)NegativeNegMary Rutan HospitalUrine leukocyte esterase detection by automated test stripOrdered By: Gilson Castro on 84-13-5281Nkamxahql esterase Auto test strip Ql (U)1+NegativeZanesville City HospitalUrobilinogen Auto test strip (U) [Mass/Vol]Ordered By: Gilson Castro on 88-81-5430Siyvivuyygrc (U) [Mass/Vol]Normal mg/dLNormUniversity Hospitals Samaritan Medical CenterpH Auto test strip (U)Ordered By: Gilson Castro on 07-69-4970aP (U)7.0 [pH]5.0-9.0[facility] HospitalAutomated erythrocytes count in urine sediment (number/area)Ordered By: Gilson Castro on 25-92-7056WUP Auto (Urine sed) [#/Area]3-4 [HPF]0-4FKettering Health MiamisburgAutomated erythrocytes count in urine sediment (number/area)Ordered By: Colten Fry on 68-02-8005LUH Auto (Urine sed) [#/Area]None seen [HPF]0-4 [facility] HospitalAutomated leukocytes count in urine sediment (number/area)Ordered By: Gilson Castro on 37-51-9185UYL Auto (Urine sed) [#/Area]20-49 [HPF]0-4FKettering Health MiamisburgAutomated leukocytes count in urine sediment (number/area)Ordered By: Colten Fry on 78-58-0601KSO Auto (Urine sed) [#/Area]5-9 [HPF]0-4FKettering Health MiamisburgAutomated urine hyaline casts count (number/volume)Ordered By: Gilson Castro on 08-19-2022 Hyaline casts Auto (U) [#/Vol]None seen [LPF]0-1FKettering Health MiamisburgBasophils Auto (Bld) [#/Vol]Ordered By: Gilson Castro on 08-19-2022 Basophils (Bld) [#/Vol]0.0 10*3/uL0.0-0.1FK[facility] Basophils Auto (Bld) [#/Vol]Ordered By: Colten Fry on 93-76-2782Feovguqnz (Bld) [#/Vol]0.0 10*3/uL0.0-0.1FKettering Health MiamisburgBasophils/100 WBC Auto (Bld)Ordered By: Gilson Castro on 83-51-0376Citibonwg/100 WBC (Bld)0.2 %.[facility] HospitalBasophils/100 WBC Auto (Bld)Ordered By: Colten Fry on 86-76-4287Rhtyessrw/100 WBC (Bld)0.4 %.[facility] HospitalBilirubin Test strip Ql (U)Ordered By: Gilson Castro on 08-19-2022 Bilirubin Ql (U)NegativeNegativeZanesville City HospitalBilirubin Test strip Ql (U)Ordered By: Colten Fry on 74-04-8141Ldsrcrgzl Ql (U)Negative NegativeZanesville City HospitalBlood hemoglobin measurement (mass/volume)Ordered By: Gilson Castro on 45-50-6125Msfigdvsgd (Bld) [Mass/Vol] 13.2 g/dL12.0-16.0[facility] HospitalBlood hemoglobin measurement (mass/volume)Ordered By: Colten Fry on 59-51-7561Zxerjstfdd (Bld) [Mass/Vol] 12.8 g/dL12.0-16.0[facility] HospitalBlood leukocytes automated count (number/volume)Ordered By: Gilson Castro on 95-83-9918UOP (Bld) [#/Vol] 15.5 10*3/uL4.5-13.5FK[facility] Health MiamisburgBlood leukocytes automated count (number/volume)Ordered By: Colten Fry on SJT (Bld) [#/Vol] 13.5 10*3/uL4.5-13.5FKettering Health MiamisburgBody fluid albumin measurement (mass/volume)Ordered By: Gilson Castro on 69-37-4723Ggsprsy (Body fld) [Mass/Vol]4.0 g/dL3.2-5.5FKettering Health MiamisburgBody fluid albumin measurement (mass/volume)Ordered By: Colten Fry on 10-62-2076Wywenex (Body fld) [Mass/Vol]4.5 g/dL3.2-5.5FKettering Health MiamisburgCOVID-19 SOFIAOrdered By: Gilson Castro on 49-31-1032GOLM-CoV+SARS-CoV-2 (COVID-19) Ag IA.rapid Ql (Resp)NegativeNegativeZanesville City HospitalComment on above:This is a duplicate Adia SARS Antigen (JOSE A) result to be used for statistical tracking purpose only.Casts typing in urine sediment by light microscopyOrdered By: Gilson Castro on 16-66-4621Muasr LM Nom (Urine sed)None seen [LPF]None SeenZanesville City HospitalCasts typing in urine sediment by light microscopyOrdered By: Colten Fry on 51-31-8499Zknlz LM Nom (Urine sed)N/AFKettering Health MiamisburgColor Auto (U)Ordered By: Gilson Castro on 28-57-6440Usqzx (U)YellowYellowZanesville City Hospital Color Auto (U)Ordered By: Colten Fry on 08-93-1262Demfv (U)YellowYellow [facility] HospitalCreatinine and Glomerular filtration rate.predicted panel (S/P/Bld)Ordered By: Gilson Castro on 50-27-3813Qizfzboygs [Mass/Vol]0.73 mg/dL0.44-1.03[facility] HospitalCreatinine and Glomerular filtration rate.predicted panel (S/P/Bld)Ordered By: Colten Fry on 41-02-5349Xjmrpqunaf [Mass/Vol]0.82 mg/dL0.44-1.03[facility] HospitalEosinophils Auto (Bld) [#/Vol]Ordered By: Gilson Castro on 08-19-2022 Eosinophils (Bld) [#/Vol]0.0 10*3/uL0.0-0.7FK[facility] Eosinophils Auto (Bld) [#/Vol]Ordered By: Colten Fry on 65-75-8490Lopwxgovxmx (Bld) [#/Vol]0.0 10*3/uL0.0-0.7FKettering Health MiamisburgEosinophils/100 WBC Auto (Bld)Ordered By: Gilson Castro on 03-71-3921Ipjsczkmhze/100 WBC (Bld) 0.2 %.[facility] HospitalEosinophils/100 WBC Auto (Bld)Ordered By: Colten Fry on 58-24-1858Lndfpfokdtm/100 WBC (Bld)0.0 %.[facility] HospitalErythrocyte distribution width Auto (RBC) [Ratio]Ordered By: Gilson Castro on 55-43-9456Opwkegxcdnu distribution width (RBC) [Ratio]14.4 % 11.9-15.3FKettering Health MiamisburgErythrocyte distribution width Auto (RBC) [Ratio]Ordered By: Colten Fry on 35-44-2683Bepdkpttxxu distribution width (RBC) [Ratio]14.3 %11.9-15.3FKettering Health MiamisburgEstimated glomerular filtration rate (GFR) non- AmericanOrdered By: Gilson Castro on 47-76-1547JPE/1.73 sq M.predicted among non-blacks MDRD (S/P/Bld) [Vol rate/Area]> 60 mL/MinFirelands Regional Medical CenterEstimated glomerular filtration rate (GFR) non- AmericanOrdered By: Colten Fry on 07-55-7332FDU/1.73 sq M.predicted among non-blacks MDRD (S/P/Bld) [Vol rate/Area]> 60 mL/MinZanesville City HospitalGlobulin Calc (S) [Mass/Vol]Ordered By: Gilson Castro on 14-77-4321Lhpnxnsf (S) [Mass/Vol]2.7 g/dL [facility] HospitalGlobulin Calc (S) [Mass/Vol]Ordered By: Colten Fry on 45-25-1464Ghcramdw (S) [Mass/Vol]3.0 g/dLZanesville City HospitalHCG ( test) IA.rapid Ql (U)Ordered By: Gilson Castro on 75-33-8145OWV ( test) Ql (U)NegativeZanesville City Hospital HCG ( test) IA.rapid Ql (U)Ordered By: Colten Fry on 58-15-0044LGV ( test) Ql (U)NegativeZanesville City HospitalHematocrit Auto (Bld) [Volume fraction]Ordered By: Gilson Castro on 19-74-5174Mdgkfbcalo (Bld) [Volume fraction]40.6 %36.0-46.0[facility] HospitalHematocrit Auto (Bld) [Volume fraction]Ordered By: Colten Fry on 03-25-4151Zxdfygwlok (Bld) [Volume fraction]39.5 %36.0-46.0[facility] HospitalKetones Auto test strip (U) [Mass/Vol]Ordered By: Gilson Castro on 25-76-3653Luhlpxn (U) [Mass/Vol]4+NegativeZanesville City HospitalKetones Auto test strip (U) [Mass/Vol]Ordered By: Colten Fry on 65-90-7028Syavytf (U) [Mass/Vol]3+ NegativeZanesville City HospitalLaboratory - Chemistry and Chemistry - challengeOrdered By: Gilson Castro on 01-67-5647Vpgvyu [Catalytic activity/Vol] 24.0 U/F17-64CvlnpfpydZanesville City HospitalMagnesium [Mass/Vol]2.0 mg/dL 1.6-2.6FKettering Health MiamisburgLaboratory - Hematology and Cell counts Ordered By: Gilson Castro on 30-97-4493Hfrwzyxol RBC/100 WBC (Bld) [Ratio]0.1 % 0-0.5FMercy Health [facility] Hospitaltory - Hematology and Cell counts Ordered By: Colten Fry on 57-99-7243Oplezxxxn RBC/100 WBC (Bld) [Ratio]0.0 % 0-0.5FMercy Health St. Joseph Warren Hospitaltory - UrinalysisOrdered By: Colten Fry on 99-22-9582Krnywtx casts LM Ql (Urine sed)None seen [LPF]0-8[facility] HospitalLymphocytes Auto (Bld) [#/Vol]Ordered By: Gilson Castro on 98-46-5341Rkryudamaen (Bld) [#/Vol]2.3 10*3/uL1.20-4.8[facility] HospitalLymphocytes Auto (Bld) [#/Vol]Ordered By: Colten Fry on 85-99-1544Xnrwucskyvh (Bld) [#/Vol]1.0 10*3/uL1.20-4.8[facility] HospitalLymphocytes/100 WBC Auto (Bld)Ordered By: Gilson Castro on 08-19-2022 Lymphocytes/100 WBC (Bld)14.6 %.[facility] HospitalLymphocytes/100 WBC Auto (Bld)Ordered By: Colten Fry on 52-89-4903Gavodxfbzua/100 WBC (Bld) 7.3 %.[facility] Auto (RBC) [Entitic mass]Ordered By: Gilson Castro on 09-17-7038YWP (RBC) [Entitic mass]27.9 pg25.0-35.0[facility] Auto (RBC) [Entitic mass]Ordered By: Colten Fry on 57-94-9319NOM (RBC) [Entitic mass]27.7 pg25.0-35.0[facility] Auto (RBC) [Mass/Vol]Ordered By: Gilson Castro on 08-86-9344GBSN (RBC) [Mass/Vol]32.6 g/dL31.0-37.0[facility] HospitalHC Auto (RBC) [Mass/Vol]Ordered By: Colten Fry on 23-71-0393WALX (RBC) [Mass/Vol]32.3 g/dL31.0-37.0[facility] HospitalMCV Auto (RBC) [Entitic vol] Ordered By: Gilson Castro on 20-11-4180KQU (RBC) [Entitic vol]85.6 eK72-957 [facility] HospitalMCV Auto (RBC) [Entitic vol]Ordered By: Colten Fry on 22-40-1592BEK (RBC) [Entitic vol]85.7 wE34-508YlzgupxpsZanesville City HospitalMonocytes Auto (Bld) [#/Vol]Ordered By: Gilson Castro on 02-79-3491Oorwnfsul (Bld) [#/Vol]1.1 10*3/uL0.1-1.00[facility] HospitalMonocytes Auto (Bld) [#/Vol]Ordered By: Colten Fry on 08-19-2022 Monocytes (Bld) [#/Vol]0.3 10*3/uL0.1-1.00[facility] Monocytes/100 WBC Auto (Bld)Ordered By: Gilson Castro on 54-84-3007Tamgnubek/100 WBC (Bld)7.3 %.[facility] HospitalMonocytes/100 WBC Auto (Bld) Ordered By: Colten Fry on 85-03-5671Izxadroau/100 WBC (Bld)2.1 %.[facility] HospitalNeutrophils Auto (Bld) [#/Vol]Ordered By: Gilson Castro on 53-31-8956Shgbqhbcdfb (Bld) [#/Vol]12.1 10*3/uL1.2-7.7FKettering Health MiamisburgNeutrophils Auto (Bld) [#/Vol]Ordered By: Colten Fry on 29-10-4171Lrqmgzusbql (Bld) [#/Vol]12.2 10*3/uL1.2-7.7FKettering Health MiamisburgNeutrophils/100 WBC Auto (Bld)Ordered By: Gilson Castro on 08-19-2022 Neutrophils/100 WBC (Bld)77.7 %.[facility] HospitalNeutrophils/100 WBC Auto (Bld)Ordered By: Colten Fry on 21-88-1078Jdyfybmkzff/100 WBC (Bld) 90.2 %.[facility] HospitalNitrite Test strip Ql (U)Ordered By: Gilson Castro on 46-32-1637Dukbzdj Ql (U)NegativeNegativeZanesville City HospitalNitrite Test strip Ql (U)Ordered By: Colten Fry on 08-19-2022 Nitrite Ql (U)NegativeNegMary Rutan HospitalNo Panel InformationOrdered By: Gilson Castro on [id number] GFR ()> 60 mL/MinZanesville City HospitalComment on above:GFR estimated reference range: According to KDOQI guidelines, <60 ml/min/1.73m2 is sufficient todiagnose a patient with chronic kidney disease.Pharmacy Creatinine Clearance (Ubuk862.95[facility]> 60 mL/MinZanesville City Hospital2.0 mg/dL1.6-2.6FKettering Health Miamisburg24.0 U/L 22-51[facility]121.95[facility] 15.5 10*3/uL4.5-13.5FKettering Health Miamisburg0.1 %0-0.5FNationwide Children's HospitalARS Antigen (LFIA)[facility] HospitalNo Panel InformationOrdered By: Colten Fry on 14-54-5200Vxhk seen [LPF]0-8 [facility] HospitalEstimated GFR ()> 60 mL/Min [facility] HospitalComment on above:GFR estimated reference range: According to KDOQI guidelines, <60 ml/min/1.73m2 is sufficient todiagnose a patient with chronic kidney disease.Pharmacy Creatinine Clearance (Eknj306.97 [facility]13.5 10*3/uL4.5-13.5FK[facility]0.0 %0-0.5FK[facility]> 60 mL/MinZanesville City Hospital106.97[facility] HospitalPlatelet mean volume Auto (Bld) [Entitic vol]Ordered By: Gilson Castro on 16-00-7379Bzfpnwga mean volume (Bld) [Entitic vol]8.8 fL6.3-10.7FKettering Health MiamisburgPlatelet mean volume Auto (Bld) [Entitic vol]Ordered By: Colten Fry on 23-38-4253Gekjunpk mean volume (Bld) [Entitic vol]8.7 fL6.3-10.7FKet[facility] Platelets Auto (Bld) [#/Vol]Ordered By: Gilson Castro on 24-87-9191Hsvjwcdnt (Bld) [#/Vol]314 10*3/kF546-758TjupebdrcZanesville City HospitalPlatelets Auto (Bld) [#/Vol]Ordered By: Colten Fry on 83-57-6981Irljsopwf (Bld) [#/Vol]258 10*3/xP903-923YkpgbpavjZanesville City HospitalProtein Auto test strip (U) [Mass/Vol]Ordered By: Gilson Castro on 54-05-1888Frgwmzn (U) [Mass/Vol]30 mg/dL NegativeZanesville City HospitalProtein Auto test strip (U) [Mass/Vol] Ordered By: Colten Fry on 56-59-5082Fkdiwtx (U) [Mass/Vol]Trace mg/dLNegative [facility] HospitalProtein [Mass/volume] in Serum or PlasmaOrdered By: Gilson Castro on 55-53-7885Poqlahl [Mass/Vol]6.7 g/dL6.1-7.9[facility] HospitalProtein [Mass/volume] in Serum or PlasmaOrdered By: Colten Fry on 04-19-2539Qufqymw [Mass/Vol]7.5 g/dL6.1-7.9[facility] HospitalRBC Auto (Bld) [#/Vol]Ordered By: Gilson Castro on 44-62-6495JOO (Bld) [#/Vol]4.74 10*6/uL4.10-5.10[facility] HospitalRB Auto (Bld) [#/Vol]Ordered By: Colten Fry on 46-47-4251EMP (Bld) [#/Vol]4.60 10*6/uL4.10-5.10[facility] Centererum or plasma alanine aminotransferase measurement without P-5'-P (enzymatic activiOrdered By: Gilson Castro on 72-71-4952IEV No additional P-5'-P [Catalytic activity/Vol]17 U/L 10-60[facility] Centererum or plasma alanine aminotransferase measurement without P-5'-P (enzymatic activiOrdered By: Colten Fry on 48-94-3872BYJ No additional P-5'-P [Catalytic activity/Vol]16 U/W88-68DrawxonsvCincinnati VA Medical Centererum or plasma albumin/globulin mass ratioOrdered By: Gilson Castro on 03-57-6462Wzgafvk/Globulin [Mass ratio]1.5 {ratio}[facility] Centererum or plasma albumin/globulin mass ratioOrdered By: Colten Fry on 57-88-0740Zhxhnnv/Globulin [Mass ratio]1.5 {ratio}[facility] Centererum or plasma alkaline phosphatase measurement (enzymatic activity/volume)Ordered By: Gilson Castro on 39-73-3877ACI [Catalytic activity/Vol]51 U/Z62-41GlldrjoytCincinnati VA Medical Centererum or plasma alkaline phosphatase measurement (enzymatic activity/volume)Ordered By: Colten Fry on 88-01-8450OYJ [Catalytic activity/Vol]59 U/L55-69JylpfejygCincinnati VA Medical Centererum or plasma anion gap determinationOrdered By: Gilson Castro on 81-26-7643Kvesl gap [Moles/Vol]13.8 mmol/L6.0-15.0[facility] Centererum or plasma anion gap determinationOrdered By: Colten Fry on 54-55-8753Ecrsn gap [Moles/Vol]19.5 mmol/L6.0-15.0[facility] Centererum or plasma aspartate aminotransferase measurement (enzymatic activity/volume)Ordered By: Gilson Castro on 03-10-5448XUS [Catalytic activity/Vol]17 U/U67-62WnvgkaiiwCincinnati VA Medical Centererum or plasma aspartate aminotransferase measurement (enzymatic activity/volume)Ordered By: Colten Fry on 56-67-7441SGZ [Catalytic activity/Vol]20 U/D27-10UazcdclsdCincinnati VA Medical Centererum or plasma calcium measurement (mass/volume)Ordered By: Gilson Castro on 27-69-3709Mzqjsoj [Mass/Vol]9.1 mg/dL8.2-10.2FNationwide Children's Hospitalerum or plasma calcium measurement (mass/volume)Ordered By: Colten Fry on 36-62-8495Dqbwrqr [Mass/Vol]9.8 mg/dL8.2-10.2FNationwide Children's Hospitalerum or plasma chloride measurement (moles/volume) Ordered By: Gilson Castro on 38-88-1722Muvlceah [Moles/Vol]104 mmol/L95-114 [facility] Centererum or plasma chloride measurement (moles/volume)Ordered By: Colten Fry on 64-17-8973Kigznghg [Moles/Vol]107 mmol/B21-948FoygrxxtyCincinnati VA Medical Centererum or plasma creatinine measurement with calculation of estimated glomerular filtrOrdered By: Gilson Castro on 67-38-1259Ebcisrtfaw and Glomerular filtration rate.predicted panel (S/P/Bld)0.73 mg/dL0.44-1.03[facility] Centererum or plasma creatinine measurement with calculation of estimated glomerular filtrOrdered By: Colten Fry on 75-42-7543Vruxlzgfww and Glomerular filtration rate.predicted panel (S/P/Bld)0.82 mg/dL0.44-1.03[facility] Centererum or plasma glucose measurement (mass/volume)Ordered By: Gilson Castro on 08-19-2022 Glucose [Mass/Vol]108 mg/oU67-124PtoyzcewdZanesville City HospitalComment on above:ADA recommended reference range Random [...] glucose measurement (mass/volume)Ordered By: Colten Fry on 99-79-3603Tgqicuj [Mass/Vol]131 mg/tC42-948WtbiwoanvZanesville City HospitalComment on above:ADA recommended reference range Random [...] potassium measurement (moles/volume)Ordered By: Gilson Castro on 06-68-1427Nduiiskqx [Moles/Vol]3.1 mmol/L3.5-5.1FNationwide Children's Hospitalerum or plasma potassium measurement (moles/volume) Ordered By: Colten Fry on 52-51-9205Amudprwmv [Moles/Vol]3.9 mmol/L3.5-5.1 [facility] Centererum or plasma sodium measurement (moles/volume)Ordered By: Gilson Castro on 51-35-7136Hvzrvg [Moles/Vol]138 mmol/W593-656PyynwwwzyCincinnati VA Medical Centererum or plasma sodium measurement (moles/volume)Ordered By: Colten Fry on 58-55-3308Nbobqa [Moles/Vol]142 mmol/U297-185CkqngjfelCincinnati VA Medical Centererum or plasma total bilirubin measurement (mass/volume)Ordered By: Gilson Castro on 94-06-9523Dxrmitqoy [Mass/Vol]0.5 mg/dL0.3-1.2FNationwide Children's Hospitalerum or plasma total bilirubin measurement (mass/volume)Ordered By: Colten Fry on 08-19-2022 Bilirubin [Mass/Vol]0.6 mg/dL0.3-1.2FNationwide Children's Hospitalerum or plasma total carbon dioxide measurement (moles/volume)Ordered By: Gilson Castro on 15-54-1693PF6 [Moles/Vol]23.3 mmol/L22.0-30.0[facility] Centererum or plasma total carbon dioxide measurement (moles/volume)Ordered By: Colten Fry on 79-93-4655CK2 [Moles/Vol]19.4 mmol/L22.0-30.0[facility] Centererum or plasma urea nitrogen measurement (mass/volume) Ordered By: Gilson Castro on 24-69-7994Dgzx nitrogen [Mass/Vol]15 mg/dL08-20 [facility] Centererum or plasma urea nitrogen measurement (mass/volume)Ordered By: Colten Fry on 41-67-8017Lmwv nitrogen [Mass/Vol]14 mg/dL08-20[facility] Centerpecific gravity Auto test strip (U) [Rel density]Ordered By: Gilson Castro on 27-96-3685Swxjtaqz gravity (U) [Rel density]1.0261.001-1.030[facility] Centerpecific gravity Auto test strip (U) [Rel density]Ordered By: Colten Fry on 43-35-1011Mrjyxviz gravity (U) [Rel density]1.0231.001-1.030[facility] Squamous epithelial cells detection in urine sediment by light microscopyOrdered By: Gilson Castor on 21-18-8967Xepxczqfgt cells.squamous LM Ql (Urine sed)20-30 [HPF]0-[facility] Children's Hospitalquamous epithelial cells detection in urine sediment by light microscopyOrdered By: Colten Fry on 08-19-2022 Epithelial cells.squamous LM Ql (Urine sed)20-30 [HPF][address] [place], [place] [address]Urine bacteria detection by automated methodOrdered By: Gilson Castro on 24-18-3308Keqsohic Auto Ql (U)2+None [facility] DaytonUrine bacteria detection by automated methodOrdered By: Colten Fry on 93-74-3276Eftajdhf Auto Ql (U)1+None [facility] DaytonUrine clarity by refractometry automatedOrdered By: Gilson Catsro on 22-77-9836Zlckivv Refractometry automated (U)TurbidCleParkview HealthUrine clarity by refractometry automatedOrdered By: Colten Fry on 22-21-0330Aryusdm Refractometry automated (U)CloudyCleParkview HealthUrine glucose measurement by automated test strip (mass/volume)Ordered By: Gilson Castro on 97-16-1546Njianaw Auto test strip (U) [Mass/Vol]Normal mg/dLParkview HealthUrine glucose measurement by automated test strip (mass/volume)Ordered By: Colten Fry on 16-77-7322Wltmjjj Auto test strip (U) [Mass/Vol]Normal mg/dLOur Lady of Mercy Hospital - AndersonUrine hemoglobin detection by automated test stripOrdered By: Gilson Castro on 35-94-1576Ftkaawtfsy Auto test strip Ql (U)NegativeNegativeZanesville City HospitalUrine hemoglobin detection by automated test stripOrdered By: Colten Fry on 48-00-2380Uhvfoihmja Auto test strip Ql (U)NegativeNegative [facility] HospitalUrine leukocyte esterase detection by automated test stripOrdered By: Gilson Castro on 45-11-7084Paengspsm esterase Auto test strip Ql (U)2+NegativeZanesville City HospitalUrine leukocyte esterase detection by automated test stripOrdered By: Colten Fry on 08-19-2022 Leukocyte esterase Auto test strip Ql (U)1+NegativeZanesville City HospitalUrobilinogen Auto test strip (U) [Mass/Vol]Ordered By: Gilson Castro on 54-82-4354Hadcmvclljgb (U) [Mass/Vol]Normal mg/dLNormUniversity Hospitals Samaritan Medical CenterUrobilinogen Auto test strip (U) [Mass/Vol]Ordered By: Colten Fry on 69-94-9662Mhjjytjwyaqy (U) [Mass/Vol]Normal mg/dLNormUniversity Hospitals Samaritan Medical CenterpH Auto test strip (U)Ordered By: Gilson Castro on 24-86-7092iT (U)8.0 [pH]5.0-9.0[facility] HospitalpH Auto test strip (U)Ordered By: Colten Fry on 41-41-7678gE (U)6.0 [pH]5.0-9.0[facility] HospitalCOVID-19 SOFIAOrdered By: Joss Rivera on 08-18-2022 SARS-CoV+SARS-CoV-2 (COVID-19) Ag IA.rapid Ql (Resp)NegativeNegativeZanesville City HospitalComment on above:This is a duplicate Adia SARS Antigen (JOSE A) result to be used for statistical tracking purpose only.No Panel InformationOrdered By: Joss Rivera on 77-46-3712EAOD Antigen (LFIA)[facility] HospitalBasophils Auto (Bld) [#/Vol]Ordered By: Modesta Chand on 49-62-4414Sekoikblt (Bld) [#/Vol]0.1 10*3/uL0.0-0.1FKettering Health MiamisburgBasophils/100 WBC Auto (Bld)Ordered By: Modesta Chand on 22-60-4553Bgxczlizd/100 WBC (Bld)1.2 %.[facility] HospitalBlood hemoglobin measurement (mass/volume)Ordered By: Modesta Chand on 49-41-0299Ullzkbdjzx (Bld) [Mass/Vol]13.8 g/dL12.0-16.0[facility] HospitalBlood leukocytes automated count (number/volume)Ordered By: Modesta Chand on 25-44-0884OSA (Bld) [#/Vol]7.9 10*3/uL4.5-13.5FKettering Health MiamisburgBody fluid albumin measurement (mass/volume)Ordered By: Modesta Chand on 62-87-3725Hxuuyuz (Body fld) [Mass/Vol]4.5 g/dL3.2-5.5 [facility] HospitalCT biopsyOrdered By: Modesta Chand on 46-85-2872Ybgusmpecpk [Mass/Vol]328 mg/aU499-530VuokdjofhZanesville City HospitalCreatinine and Glomerular filtration rate.predicted panel (S/P/Bld)Ordered By: Modesta Chand on 65-28-3236Egfgrseshu [Mass/Vol]0.67 mg/dL0.44-1.03 [facility] HospitalEosinophils Auto (Bld) [#/Vol]Ordered By: Modesta Chand on 74-77-2030Exrksplsypt (Bld) [#/Vol]0.6 10*3/uL0.0-0.7 [facility] HospitalEosinophils/100 WBC Auto (Bld)Ordered By: Modesta Chand on 78-77-8249Dvrxpdvdxfb/100 WBC (Bld)7.2 %.[facility] HospitalErythrocyte distribution width Auto (RBC) [Ratio]Ordered By: Modesta Chand on 48-55-3964Vgjuhpxyykq distribution width (RBC) [Ratio]13.6 %11.9-15.3FKettering Health MiamisburgEstimated glomerular filtration rate (GFR) non- AmericanOrdered By: Modesta Chand on 97-47-1128VPZ/1.73 sq M.predicted among non-blacks MDRD (S/P/Bld) [Vol rate/Area]> 60 mL/MinZanesville City HospitalFerritin [Mass/volume] in Serum or PlasmaOrdered By: Modesta Chand on 93-54-5123Xvhumdjf [Mass/Vol] 28.5 ng/yL41-537.8[facility] HospitalGlobulin Calc (S) [Mass/Vol] Ordered By: Modesta Chand on 56-76-8269Sglcylxo (S) [Mass/Vol]2.5 g/dL [facility] HospitalHematocrit Auto (Bld) [Volume fraction]Ordered By: Modesta Chand on 39-87-9451Leebxknuhy (Bld) [Volume fraction]42.3 % 36.0-46.0[facility] HospitalIron [Mass/volume] in Serum or Plasma Ordered By: Modesta Chand on 13-53-5549Kisj [Mass/Vol]52 ug/jD66-221 [facility] HospitalIron binding capacity [Mass/volume] in Serum or PlasmaOrdered By: Modesta Chand on 68-10-1453Dluy binding capacity [Mass/Vol]459 ug/aA624-082AqsqqrwewZanesville City HospitalIron saturation [Mass Fraction] in Serum or PlasmaOrdered By: Modesta Chand on 82-57-9479Tkff saturation [Mass fraction]11.0 %20-50[facility] HospitalLaboratory - Hematology and Cell countsOrdered By: Modesta Chand on 06-25-2022 Nucleated RBC/100 WBC (Bld) [Ratio]0.0 %0-0.5FK[facility] Lymphocytes Auto (Bld) [#/Vol]Ordered By: Modesta Chand on 06-25-2022 Lymphocytes (Bld) [#/Vol]2.1 10*3/uL1.20-4.8[facility] Lymphocytes/100 WBC Auto (Bld)Ordered By: Modesta Chand on 06-25-2022 Lymphocytes/100 WBC (Bld)26.9 %.[facility] Auto (RBC) [Entitic mass]Ordered By: Modesta Chand on 63-61-6541VCP (RBC) [Entitic mass]28.1 pg25.0-35.0[facility] HospitalMC Auto (RBC) [Mass/Vol] Ordered By: Modesta Chand on 87-81-6749EDCL (RBC) [Mass/Vol]32.7 g/dL 31.0-37.0[facility] HospitalMCV Auto (RBC) [Entitic vol]Ordered By: Modesta Chand on 11-38-6731AGW (RBC) [Entitic vol]85.8 iU87-263 [facility] HospitalMonocytes Auto (Bld) [#/Vol]Ordered By: Modesta Chand on 75-99-3818Sedxgksdg (Bld) [#/Vol]0.6 10*3/uL0.1-1.00 [facility] HospitalMonocytes/100 WBC Auto (Bld)Ordered By: Modesta Chand on 37-62-8753Mikyuzfxa/100 WBC (Bld)7.2 %.[facility] HospitalNeutrophils Auto (Bld) [#/Vol]Ordered By: Modesta Chand on 21-71-8421Agcajbirtlq (Bld) [#/Vol]4.5 10*3/uL1.2-7.7FKettering Health MiamisburgNeutrophils/100 WBC Auto (Bld)Ordered By: Modesta Chand on 38-18-8739Odfxvniklsj/100 WBC (Bld)57.5 %.[facility] HospitalNo Panel InformationOrdered By: Modesta Chand on 93-20-570901034120-Qkxjsgb Vitamin D Total35.9 ng/pG86-573HdwxbrusnZanesville City HospitalComment on above: VITAMIN D STATUS 25(OH)VITAMIN D RANGE (ng/mL) Deficient <20 Insufficient 20 to <30 Sufficient 30 to 100 Reference: Danica MF,Chayo NC, Sony GUERRERO, et al. Evaluation,treatment, and prevention of vitamin D deficiency; an Endocrine Society clinical practice guideline. JCEM. 2010; 96(7):1911-30.Absolute Reticulocyte Count0.066 10*6/uL0.024-0.084[facility] Estimated GFR ()> 60 mL/MinZanesville City Hospital Comment on above:GFR estimated reference range: According to KDOQI guidelines, <60 ml/min/1.73m2 is sufficient todiagnose a patient with chronic kidney disease.Percent Reticulocyte Count1.3 %0.5-1.5FK[facility] Creatinine Clearance (ChemN/AFKettering Health MiamisburgPlatelet mean volume Auto (Bld) [Entitic vol]Ordered By: Modesta Chand on 78-11-0977Pibaxmmq mean volume (Bld) [Entitic vol]9.0 fL6.3-10.7FKettering Health MiamisburgPlatelets Auto (Bld) [#/Vol]Ordered By: Modesta Chand on 25-72-0791Xdeahjacc (Bld) [#/Vol]263 10*3/rX271-923JnvknsfenZanesville City HospitalProtein [Mass/volume] in Serum or PlasmaOrdered By: Modesta Chand on 61-85-7288Vurukln [Mass/Vol]7.0 g/dL6.1-7.9[facility] HospitalRBC Auto (Bld) [#/Vol]Ordered By: Modesta Chand on 10-23-7779GIZ (Bld) [#/Vol]4.94 10*6/uL4.10-5.10[facility] Centererum or plasma alanine aminotransferase measurement without P-5'-P (enzymatic activiOrdered By: Modesta Chand on 57-93-5860GXU No additional P-5'-P [Catalytic activity/Vol]18 U/D47-46CufcggmxqCincinnati VA Medical Centererum or plasma albumin/globulin mass ratioOrdered By: Modesta Chand on 32-07-8269Uxbazfg/Globulin [Mass ratio]1.8 {ratio}[facility] Centererum or plasma alkaline phosphatase measurement (enzymatic activity/volume)Ordered By: Modesta Chand on 72-53-9751MFL [Catalytic activity/Vol]65 U/Y10-14EhakinalrCincinnati VA Medical Centererum or plasma aspartate aminotransferase measurement (enzymatic activity/volume)Ordered By: Modesta Chand on 01-83-4038DOM [Catalytic activity/Vol]18 U/L10-42 [facility] Centererum or plasma calcium measurement (mass/volume)Ordered By: Modesta Chand on 70-36-6021Iagwvrp [Mass/Vol]10.2 mg/dL8.2-10.2FNationwide Children's Hospitalerum or plasma chloride measurement (moles/volume)Ordered By: Modesta Chand on 67-71-4537Tilcgxim [Moles/Vol]102 mmol/Y40-194RmvpindqqCincinnati VA Medical Centererum or plasma glucose measurement (mass/volume)Ordered By: Modesta Chand on 06-25-2022 Glucose [Mass/Vol]87 mg/uT37-579BsfsajoqgZanesville City HospitalComment on above:ADA recommended reference range Random Glucose Reference Range is dependent on time and content of last meal. Glucose of more than 200 mg/dL in a nonstressed, ambulatory subject supports the diagnosis of Diabetes Mellitus.Serum or plasma potassium measurement (moles/volume)Ordered By: Modesta Chand on 99-23-6133Hqlxuaiky [Moles/Vol] 4.4 mmol/L3.5-5.1FNationwide Children's Hospitalerum or plasma sodium measurement (moles/volume)Ordered By: Modesta Chand on 74-85-9210Lfyehx [Moles/Vol]137 mmol/I688-764ZhwilnzxhCincinnati VA Medical Centererum or plasma total bilirubin measurement (mass/volume)Ordered By: Modesta Chand on 51-32-8103Emnauwcig [Mass/Vol]0.4 mg/dL0.3-1.2FKet[facility] Serum or plasma total carbon dioxide measurement (moles/volume)Ordered By: Modesta Chand on 84-32-5314OF4 [Moles/Vol]23.8 mmol/L22.0-30.0[facility] Centererum or plasma urea nitrogen measurement (mass/volume) Ordered By: Modesta Chand on 46-63-3042Jrir nitrogen [Mass/Vol]14 mg/dL 9-23[facility] HospitalTS DL <= 0.005 mIU/L QnOrdered By: Modesta Chand on 28-53-6177WXJ Qn1.05 m[IU]/L0.45-5.33[facility] HospitalThyroxine (T4) free [Mass/volume] in Serum or PlasmaOrdered By: Modesta Chand on 16-49-4935Hgpz T4 [Mass/Vol]0.74 ng/dL0.61-1.12[facility] HospitalHCG ( test) IA.rapid Ql (U)Ordered By: Brennen Britt on 24-63-2544KMP ( test) Ql (U)NegativeZanesville City HospitalCOVID-19 Positive/NegativeOrdered By: Brennen Britt on 06-07-2022 SARS-CoV-2 (COVID-19) N gene JANAK+probe Ql (Resp)NegativeNegativeZanesville City HospitalComment on above:Testing for SARS-CoV-2 by RT-PCR This test was developed and its performance characteristics determined by [employer] and validated at the [facility]. This test has not been FDA [...] Serum or PlasmaOrdered By: Modesta Chand on 47-03-6379Paswcit [Mass/Vol]3.9 g/dL3.2-5.5FKettering Health MiamisburgBasophils Auto (Bld) [#/Vol]Ordered By: Modetsa Chand on 87-71-8640Hobkchvvn (Bld) [#/Vol]0.1 10*3/uL0.0-0.1FKettering Health MiamisburgBasophils/100 WBC Auto (Bld)Ordered By: Modesta Chand on 78-05-6279Uthkjxkfx/100 WBC (Bld)1.1 %.[facility] HospitalBlood hemoglobin measurement (mass/volume)Ordered By: Modesta Chand on 60-41-9100Gughilsera (Bld) [Mass/Vol]13.6 g/dL12.0-16.0[facility] HospitalBlood leukocytes automated count (number/volume)Ordered By: Modesta Chand on 71-69-9890JRV (Bld) [#/Vol]10.6 10*3/uL4.5-13.5FKettering Health MiamisburgC reactive protein [Mass/volume] in Serum or Plasma Ordered By: Modesta Chand on 51-32-4719QYL [Mass/Vol]0.6 mg/dL0.0-1.0 [facility] HospitalCT biopsyOrdered By: Modesta Chand on 74-23-8621Nbddqlxjaxq [Mass/Vol]292 mg/nZ948-843JimspbgomZanesville City HospitalCreatinine and Glomerular filtration rate.predicted panel (S/P/Bld)Ordered By: Modesta Chand on 62-87-7073Zwnnztrszp [Mass/Vol]0.63 mg/dL0.44-1.03 [facility] HospitalEosinophils Auto (Bld) [#/Vol]Ordered By: Modesta Chand on 00-41-2102Yoesirxcivz (Bld) [#/Vol]0.4 10*3/uL0.0-0.7 [facility] HospitalEosinophils/100 WBC Auto (Bld)Ordered By: Modesta Chand on 26-05-7572Clpppptagxn/100 WBC (Bld)3.6 %.[facility] HospitalErythrocyte distribution width Auto (RBC) [Ratio]Ordered By: Modesta Chand on 05-16-8336Gnpyngczgco distribution width (RBC) [Ratio]13.7 %11.9-15.3FKettering Health MiamisburgErythrocyte sedimentation rate by Photometric methodOrdered By: Modesta Chand on 25-38-8614XAC Photometric method (Bld) [Velocity]5 mm/hr0-19[facility] Estimated glomerular filtration rate (GFR) non- AmericanOrdered By: Modesta Chand on 89-63-5876QIW/1.73 sq M.predicted among non-blacks MDRD (S/P/Bld) [Vol rate/Area]> 60 mL/MinZanesville City HospitalFerritin [Mass/volume] in Serum or PlasmaOrdered By: Modesta Chand on 05-26-2022 Ferritin [Mass/Vol]14.2 ng/lC08-817.8[facility] HospitalFolate [Mass/volume] in Serum or PlasmaOrdered By: Modesta Chand on 05-26-2022 Folate [Mass/Vol]13.0 ng/mL>5.9[facility] HospitalComment on above:Folate reference range: >5.9 ng/ml The WHO technical consultation on folate and vitamin b12 deficiencies has determined that folate concentrations less than 4 ng/ml are considered deficient.Globulin Calc (S) [Mass/Vol]Ordered By: Modesta Chand on 94-78-9306Odrbczqf (S) [Mass/Vol]2.3 g/dLZanesville City HospitalGlucose mean value [Mass/volume] in Blood Estimated from glycated hemoglobinOrdered By: Modesta Chand on 94-41-6390Czybwof glucose Estimated from glycated hemoglobin (Bld) [Mass/Vol]111 mg/dLZanesville City HospitalHematocrit Auto (Bld) [Volume fraction]Ordered By: Modesta Chand on 77-96-7448Ljowqiqhnd (Bld) [Volume fraction]41.4 %36.0-46.0 [facility] HospitalHemoglobin A1c percentageOrdered By: Modesta Chand on 87-68-4864NjQ2l (Bld) [Mass fraction]5.5 %4.3-5.6FKettering Health MiamisburgComment on above:Increased risk for diabetes: 5.7 - 6.4 diabetes: >6.4 glycemic control for adults with diabetes: <7.0Iron [Mass/volume] in Serum or PlasmaOrdered By: Modesta Chand on 18-39-2030Mpty [Mass/Vol]63 ug/iW13-223 [facility] HospitalIron binding capacity [Mass/volume] in Serum or PlasmaOrdered By: Modesta Chand on 58-83-0919Vtih binding capacity [Mass/Vol]409 ug/jI452-172NanljgbxwZanesville City HospitalIron saturation [Mass Fraction] in Serum or PlasmaOrdered By: Modesta Chnad on 84-23-3317Bbeu saturation [Mass fraction]15.0 %20-50[facility] HospitalLaboratory - Chemistry and Chemistry - challengeOrdered By: Modesta Chand on 65-46-2250Khfhuifls (Vitamin B12) [Mass/Vol]329 pg/uW234-337RkabsssgsZanesville City HospitalLaboratory - Hematology and Cell countsOrdered By: Modesta Chand on 15-13-1403Xqvdkgqco RBC/100 WBC (Bld) [Ratio]0.0 %0-0.5FKettering Health MiamisburgLymphocytes Auto (Bld) [#/Vol]Ordered By: Modesta Chand on 25-59-7593Nyystvotzds (Bld) [#/Vol]2.3 10*3/uL1.20-4.8[facility] HospitalLymphocytes/100 WBC Auto (Bld)Ordered By: Modesta Chand on 39-94-1926Gyclifbryql/100 WBC (Bld)21.6 %.[facility] HospitalMCH Auto (RBC) [Entitic mass]Ordered By: Modesta Chand on 10-67-2188DZR (RBC) [Entitic mass]28.6 pg25.0-35.0[facility] HospitalMCHC Auto (RBC) [Mass/Vol]Ordered By: Modesta Chand on 05-26-2022 MCHC (RBC) [Mass/Vol]33.0 g/dL31.0-37.0[facility] HospitalMCV Auto (RBC) [Entitic vol]Ordered By: Modesta Chand on 30-57-7040IVD (RBC) [Entitic vol]86.6 cB37-265TxivqaxbzZanesville City HospitalMonocytes Auto (Bld) [#/Vol]Ordered By: Modesta Chand on 47-96-1722Abggtpafv (Bld) [#/Vol]0.6 10*3/uL0.1-1.00[facility] HospitalMonocytes/100 WBC Auto (Bld) Ordered By: Modesta Chand on 62-15-3658Ahrzhyvnc/100 WBC (Bld)5.9 %. [facility] HospitalNeutrophils Auto (Bld) [#/Vol]Ordered By: Modesta Chand on 70-18-1517Vmdsigyhltk (Bld) [#/Vol]7.2 10*3/uL1.2-7.7 [facility] HospitalNeutrophils/100 WBC Auto (Bld)Ordered By: Modesta Chand on 74-51-0142Lmfwbsfbwej/100 WBC (Bld)67.8 %.[facility] HospitalNo Panel InformationOrdered By: Modesta Chand on [id number]-Kusnykn Vitamin D Total26.9 ng/eD41-631LrbizigkqZanesville City HospitalComment on above:VITAMIN D STATUS 25(OH)VITAMIN D RANGE (ng/mL) Deficient <20 Insufficient 20 to <30 Sufficient 30 to 100 Reference: Danica MF,Chayo WOODRUFF, Sony GUERRERO, et al. Evaluation,treatment, and prevention of vitamin D deficiency; an [employer]ocrine Society clinical practice guideline. JCEM. 2010; 96(7):1911-30.Estimated GFR ()> 60 mL/MinZanesville City HospitalComment on above: GFR estimated reference range: According to KDOQI guidelines, <60 ml/min/1.73m2 is sufficient todiagnose a patient with chronic kidney disease.Pharmacy Creatinine Clearance (ChemN/AFKettering Health MiamisburgPlatelet mean volume Auto (Bld) [Entitic vol]Ordered By: Modesta Chand on 05-26-2022 Platelet mean volume (Bld) [Entitic vol]8.9 fL6.3-10.7FKettering Health MiamisburgPlatelets Auto (Bld) [#/Vol]Ordered By: Modesta Chand on 05-26-2022 Platelets (Bld) [#/Vol]286 10*3/gW541-848QgrmmxpqfZanesville City Hospital Protein [Mass/volume] in Serum or PlasmaOrdered By: Modesta Chand on 87-78-0313Uoycpzh [Mass/Vol]6.2 g/dL6.1-7.9Z[facility] City HospitalRBC Auto (Bld) [#/Vol]Ordered By: Modesta Chand on 01-22-2355AFP (Bld) [#/Vol] 4.78 10*6/uL4.10-5.10[facility] Centererum nuclear antibody titerOrdered By: Modesta Chand on 23-36-4497Zrervrq Ab (S) [Titer]Negative .[facility] City HospitalComment on above:Negative <1:80 Borderline 1:80 Positive >1:80 ICAP nomenclature: AC-0 For more information about Hep-2 cell patterns use ANApatterns.org, the official website for the International Consensus on Antinuclear Antibody (EDMOND) Patterns (ICAP). Performed at: [facility] [id number] Social Media Job Titles: James Nelson PhD, Phone: [phone] or plasma alanine aminotransferase measurement without P-5'-P (enzymatic activiOrdered By: Modesta Chand on 93-20-1372NGR No additional P-5'-P [Catalytic activity/Vol]50 U/E64-12YunajseqtCincinnati VA Medical Centererum or plasma albumin/globulin mass ratioOrdered By: Modesta Chand on 05-26-2022 Albumin/Globulin [Mass ratio]1.7 {ratio}[facility] Centererum or plasma alkaline phosphatase measurement (enzymatic activity/volume)Ordered By: Modesta Chand on 96-25-4702ZSJ [Catalytic activity/Vol]58 U/L32-92 [facility] Centererum or plasma aspartate aminotransferase measurement (enzymatic activity/volume)Ordered By: Modesta Chand on 57-48-0102BMU [Catalytic activity/Vol]25 U/G30-23ApyncnvpqCincinnati VA Medical Centererum or plasma calcium measurement (mass/volume)Ordered By: Modesta Chand on 37-57-3539Cnpgxno [Mass/Vol]9.3 mg/dL8.2-10.2FNationwide Children's Hospitalerum or plasma chloride measurement (moles/volume)Ordered By: Modesta Chand on 47-81-5541Yulbnlbd [Moles/Vol]103 mmol/Y36-791YrajgcixuCincinnati VA Medical Centererum or plasma glucose measurement (mass/volume)Ordered By: Modesta Chand on 56-11-2965Stzzygk [Mass/Vol]111 mg/aJ01-165IwthalqedZanesville City HospitalComment on above:ADA recommended reference range Random Glucose Reference Range is dependent on time and content of last meal. Glucose of more than 200 mg/dL in a nonstressed, ambulatory subject supports the diagnosis of Diabetes Mellitus.Serum or plasma potassium measurement (moles/volume)Ordered By: Modesta Chand on 16-16-1105Ukwudvtls [Moles/Vol] 4.3 mmol/L3.5-5.1FNationwide Children's Hospitalerum or plasma sodium measurement (moles/volume)Ordered By: Modesta Chand on 82-18-6783Lppgcf [Moles/Vol]137 mmol/I696-651ZdngjwwaoCincinnati VA Medical Centererum or plasma total bilirubin measurement (mass/volume)Ordered By: Modesta Chand on 56-67-7584Ujfbvwfzw [Mass/Vol]0.5 mg/dL0.3-1.2FKettering Health Miamisburg Serum or plasma total carbon dioxide measurement (moles/volume)Ordered By: Modesta Chand on 20-21-9024KL3 [Moles/Vol]24.9 mmol/L22.0-30.0[facility] Centererum or plasma urea nitrogen measurement (mass/volume) Ordered By: Modesta Chand on 42-10-5112Olcf nitrogen [Mass/Vol]9 mg/dL9-23 [facility] HospitalUrine culture routineOrdered By: Gilson Castro on 25-75-4061Wnmaqdtq identified Cx Nom (U)2 DaysZanesville City HospitalAmphetamine Screen Ql (U)Ordered By: Gilson Castro on 05-16-2022 Amphetamines Ql (U)NegativeNegativeZanesville City HospitalAutomated erythrocytes count in urine sediment (number/area)Ordered By: Gilson Castro on 16-16-1458XLS Auto (Urine sed) [#/Area]3-4 [HPF]0-4FKettering Health MiamisburgAutomated leukocytes count in urine sediment (number/area)Ordered By: Gilson Castro on 03-25-7437OEG Auto (Urine sed) [#/Area]5-9 [HPF]0-4FKettering Health MiamisburgAutomated urine hyaline casts count (number/volume) Ordered By: Gilson Castro on 45-84-0305Btfextz casts Auto (U) [#/Vol]None seen [LPF]0-1FKettering Health MiamisburgBarbiturates [Presence] in UrineOrdered By: Gilson Castro on 89-77-1227Wqftmjjjfibo Ql (U)PositiveNegMary Rutan HospitalBasophils Auto (Bld) [#/Vol]Ordered By: Gilson Castro on 40-03-1041Rwhkvmleg (Bld) [#/Vol]0.0 10*3/uL0.0-0.1FKettering Health MiamisburgBasophils/100 WBC Auto (Bld)Ordered By: Gilson Castro on 05-16-2022 Basophils/100 WBC (Bld)0.4 %.[facility] City HospitalBenzodiazepines [Presence] in UrineOrdered By: Gilson Castro on 61-42-2072Kbfpyifumfeytlr Ql (U) NegativeNegMary Rutan HospitalBilirubin Test strip Ql (U) Ordered By: Gilson Castro on 79-08-8823Lzizixbre Ql (U)NegativeNegMary Rutan HospitalBlood hemoglobin measurement (mass/volume)Ordered By: Gilson Castro on 74-62-2916Ifunfmkeju (Bld) [Mass/Vol]13.4 g/dL12.0-16.0 [facility] HospitalBlood leukocytes automated count (number/volume)Ordered By: Gilson Castro on 56-74-4292BCA (Bld) [#/Vol]10.0 10*3/uL4.5-13.5FKettering Health MiamisburgBody fluid albumin measurement (mass/volume)Ordered By: Gilson Castro on 98-96-7212Lcftqjm (Body fld) [Mass/Vol]4.3 g/dL3.2-5.5FKettering Health MiamisburgCannabinoids [Presence] in Urine by Screen methodOrdered By: Gilson Castro on 05-16-2022 Cannabinoids Screen Ql (U)PositiveNegMary Rutan Hospital Comment on above:These are unconfirmed results and should not be used for legal purposes. Drug Cut-Off Concentration: AMPH 1000 ng/mL NIKOLAS 200 ng/mL SHRAVAN 200 ng/mL COCM 300 ng/mL OP 300 ng/mL PCP 25 ng/mL THC 20 ng/mLCasts typing in urine sediment by light microscopyOrdered By: Gilson Castro on 39-08-3631Vcvax LM Nom (Urine sed)None seen [LPF]None SeenZanesville City HospitalColor Auto (U)Ordered By: Gilson Castro on 05-16-2022 Color (U)YellowYellowZanesville City HospitalCreatinine and Glomerular filtration rate.predicted panel (S/P/Bld)Ordered By: Gilson Castro on 05-16-2022 Creatinine [Mass/Vol]0.80 mg/dL0.44-1.03[facility] Eosinophils Auto (Bld) [#/Vol]Ordered By: Gilson Castro on 51-20-3804Gsbswxevjqa (Bld) [#/Vol]0.1 10*3/uL0.0-0.7FKettering Health MiamisburgEosinophils/100 WBC Auto (Bld)Ordered By: Gilson Castro on 63-92-4763Bonhreywqyk/100 WBC (Bld) 0.7 %.[facility] HospitalErythrocyte distribution width Auto (RBC) [Ratio]Ordered By: Gilson Castro on 06-01-4473Jjeoekuekqb distribution width (RBC) [Ratio]13.4 %11.9-15.3FKettering Health MiamisburgEstimated glomerular filtration rate (GFR) non- AmericanOrdered By: Gilson Castro on 62-53-6557RQM/1.73 sq M.predicted among non-blacks MDRD (S/P/Bld) [Vol rate/Area]> 60 mL/MinZanesville City HospitalGlobulin Calc (S) [Mass/Vol]Ordered By: Gilson Castro on 43-37-9140Equyuonk (S) [Mass/Vol]2.7 g/dL [facility] HospitalHCG ( test) IA.rapid Ql (U)Ordered By: Gilson Castro on 32-68-7565PBL ( test) Ql (U)NegativeZanesville City HospitalHematocrit Auto (Bld) [Volume fraction]Ordered By: Gilson Castro on 16-93-9017Ogbwuxerwl (Bld) [Volume fraction]39.4 %36.0-46.0[facility] City HospitalKetones Auto test strip (U) [Mass/Vol]Ordered By: Gilson Castro on 42-39-2715Tiptxge (U) [Mass/Vol]3+NegativeZanesville City HospitalLaboratory - Chemistry and Chemistry - challengeOrdered By: Gilson Castro on 30-60-4461Lshbcq [Catalytic activity/Vol]26.0 U/H49-32CmrvkhaegZanesville City HospitalLaboratory - Drug toxicologyOrdered By: Gilson Castro on 94-68-7828Lywfwsf Ql (U)NegativeNegativeZanesville City Hospital Laboratory - Hematology and Cell countsOrdered By: Gilson Castro on 05-16-2022 Nucleated RBC/100 WBC (Bld) [Ratio]0.0 %0-0.5FKettering Health Miamisburg Lymphocytes Auto (Bld) [#/Vol]Ordered By: Gilson Castro on 20-96-7758Baufcnsgqmg (Bld) [#/Vol]1.9 10*3/uL1.20-4.8[facility] Lymphocytes/100 WBC Auto (Bld)Ordered By: Gilson Castro on 05-16-2022 Lymphocytes/100 WBC (Bld)18.7 %.[facility] (RBC) [Entitic mass]Ordered By: Gilson Castro on 76-35-9789PIE (RBC) [Entitic mass] 28.6 pg25.0-35.0Z[facility] City HospitalMCHC Auto (RBC) [Mass/Vol] Ordered By: Gilson Castro on 92-27-9259OTHY (RBC) [Mass/Vol]34.1 g/dL31.0-37.0 [facility] HospitalMCV Auto (RBC) [Entitic vol]Ordered By: Gilson Castro on 54-01-1452DAA (RBC) [Entitic vol]84.0 lE26-341QozvjxsyzZanesville City HospitalMonocytes Auto (Bld) [#/Vol]Ordered By: Gilson Castro on 36-79-8877Pcdvvwcou (Bld) [#/Vol]0.9 10*3/uL0.1-1.00[facility] HospitalMonocytes/100 WBC Auto (Bld)Ordered By: Gilson Castro on 05-16-2022 Monocytes/100 WBC (Bld)9.2 %.[facility] HospitalNeutrophils Auto (Bld) [#/Vol]Ordered By: Gilson Castro on 04-36-3525Teqjbouvkfk (Bld) [#/Vol]7.1 10*3/uL1.2-7.7FKettering Health MiamisburgNeutrophils/100 WBC Auto (Bld) Ordered By: Gilson Castro on 84-60-9720Imjyybxosqc/100 WBC (Bld)71.0 %.[facility] City HospitalNitrite Test strip Ql (U)Ordered By: Gilson Castro on 63-71-3944Rniywcs Ql (U)NegativeNegativeZanesville City HospitalNo Panel InformationOrdered By: Gilson Castro on 78-45-2420Hdaijilmo GFR ()> 60 mL/MinZanesville City HospitalComment on above:GFR estimated reference range: According to KDOQI guidelines, <60 ml/min/1.73m2 is sufficient todiagnose a patient with chronic kidney disease.Pharmacy Creatinine Clearance (Srix084.65Z[facility] City HospitalPhencyclidine Screen Ql (U)Ordered By: Gilson Castro on 13-95-5238Temfbeauewhpk Ql (U)NegativeNegative [facility] HospitalPlatelet mean volume Auto (Bld) [Entitic vol] Ordered By: Gilson Castro on 35-23-5607Nyuxqsbl mean volume (Bld) [Entitic vol] 8.5 fL6.3-10.7FKettering Health MiamisburgPlatelets Auto (Bld) [#/Vol] Ordered By: Gilson Castro on 22-61-8478Wtuoaktrh (Bld) [#/Vol]241 10*3/aX766-975 [facility] HospitalProtein Auto test strip (U) [Mass/Vol]Ordered By: Gilson Castro on 71-80-6658Uifmtxa (U) [Mass/Vol]Trace mg/dLNegative [facility] HospitalProtein [Mass/volume] in Serum or PlasmaOrdered By: Gilson Castro on 19-15-8603Iawqlus [Mass/Vol]7.0 g/dL6.1-7.9[facility] HospitalRBC Auto (Bld) [#/Vol]Ordered By: Gilson Castro on 97-13-9470JHW (Bld) [#/Vol]4.69 10*6/uL4.10-5.10[facility] Centererum or plasma alanine aminotransferase measurement without P-5'-P (enzymatic activiOrdered By: Gilson Castro on 24-80-9020TFM No additional P-5'-P [Catalytic activity/Vol]23 U/C99-23WkifmlyrlCincinnati VA Medical Centererum or plasma albumin/globulin mass ratioOrdered By: Gilson Castro on 05-16-2022 Albumin/Globulin [Mass ratio]1.6 {ratio}[facility] Centererum or plasma alkaline phosphatase measurement (enzymatic activity/volume)Ordered By: Gilson Castro on 00-52-8734HPM [Catalytic activity/Vol]58 U/N56-43SypnighhkCincinnati VA Medical Centererum or plasma aspartate aminotransferase measurement (enzymatic activity/volume)Ordered By: Gilson Castro on 80-21-8424QQG [Catalytic activity/Vol]22 U/K20-50ZkbwymnwaCincinnati VA Medical Centererum or plasma calcium measurement (mass/volume)Ordered By: Gilson Castro on 73-42-0927Kuxaedo [Mass/Vol]9.2 mg/dL8.2-10.2FNationwide Children's Hospitalerum or plasma chloride measurement (moles/volume)Ordered By: Gilson Castro on 05-16-2022 Chloride [Moles/Vol]97 mmol/B72-121PqwduqeivCincinnati VA Medical Centererum or plasma glucose measurement (mass/volume)Ordered By: Gilson Castro on 05-16-2022 Glucose [Mass/Vol]90 mg/rW95-331IqecepdrhZanesville City HospitalComment on above:ADA recommended reference range Random Glucose Reference Range is dependent on time and content of last meal. Glucose of more than 200 mg/dL in a nonstressed, ambulatory subject supports the diagnosis of Diabetes Mellitus.Serum or plasma potassium measurement (moles/volume)Ordered By: Gilson Castro on 08-31-3497Ysmijrxtc [Moles/Vol]3.2 mmol/L3.5-5.1FNationwide Children's Hospitalerum or plasma sodium measurement (moles/volume)Ordered By: Gilson Castro on 13-69-3225Ksbpeg [Moles/Vol]135 mmol/X604-030PeqkabxdmCincinnati VA Medical Centererum or plasma total bilirubin measurement (mass/volume)Ordered By: Gilson Castro on 79-64-1387Dmoipgaiw [Mass/Vol]1.0 mg/dL0.3-1.2FNationwide Children's Hospitalerum or plasma total carbon dioxide measurement (moles/volume)Ordered By: Gilson Castro on 83-43-4586UM4 [Moles/Vol]24.6 mmol/L22.0-30.0[facility] Serum or plasma urea nitrogen measurement (mass/volume)Ordered By: Gilson Castro on 21-37-7427Slfn nitrogen [Mass/Vol]23 mg/dL9-23[facility] Centerpecific gravity Auto test strip (U) [Rel density]Ordered By: Gilson Castro on 47-21-7092Phkbdxuk gravity (U) [Rel density]1.0231.001-1.030 [facility] Centerquamous epithelial cells detection in urine sediment by light microscopyOrdered By: Gilson Castro on 44-29-8525Isusphdcno cells.squamous LM Ql (Urine sed)20-30 [HPF]0-2FKettering Health Miamisburg Urine bacteria detection by automated methodOrdered By: Gilson Castro on 21-52-7966Qsgsvqpi Auto Ql (U)1+None SeenZanesville City HospitalUrine clarity by refractometry automatedOrdered By: Gilson Castro on 94-15-4614Bnxxghi Refractometry automated (U)TurbidCleParkview HealthUrine cocaine detectionOrdered By: Gilson Castro on 79-72-4436Veomrde Ql (U)Negative NegativeZanesville City HospitalUrine glucose measurement by automated test strip (mass/volume)Ordered By: Gilson Castro on 37-63-2413Giquzds Auto test strip (U) [Mass/Vol]Normal mg/dLNormalZanesville City HospitalUrine hemoglobin detection by automated test stripOrdered By: Gilson Castro on 22-65-7184Tzlowljqdg Auto test strip Ql (U)NegativeNegativeZanesville City HospitalUrine leukocyte esterase detection by automated test stripOrdered By: Gilson Castro on 81-31-6331Jsnyuveia esterase Auto test strip Ql (U)2+ NegativeZanesville City HospitalUrobilinogen Auto test strip (U) [Mass/Vol]Ordered By: Gilson Castro on 44-52-6993Txixhukhixqu (U) [Mass/Vol] Normal mg/dLNormalZanesville City HospitalpH Auto test strip (U)Ordered By: Gilson Castro on 35-91-6501gG (U)8.0 [pH]5.0-9.0[facility] HospitalAlbumin [Mass/volume] in Serum or PlasmaOrdered By: Art Bianchi on 95-76-8863Ltutwbf [Mass/Vol]4.7 g/dL3.2-5.5FKettering Health Mi[facility]burg Basophils Auto (Bld) [#/Vol]Ordered By: Art Bianchi on 54-40-3193Dgsxaxtsu (Bld) [#/Vol]0.0 10*3/uL0.0-0.1FKettering Health MiamisburgBasophils/100 WBC Auto (Bld)Ordered By: Art Bianchi on 05-45-9261Ofcdvavqk/100 WBC (Bld)0.2 %. [facility] HospitalBlood hemoglobin measurement (mass/volume) Ordered By: Art Bianchi on 65-85-7737Ocoomgedhl (Bld) [Mass/Vol]13.6 g/dL 12.0-16.0[facility] HospitalBlood leukocytes automated count (number/volume)Ordered By: Art Bianchi on 51-46-0881JXL (Bld) [#/Vol]14.0 10*3/uL4.5-13.5FKettering Health MiamisburgCreatinine and Glomerular filtration rate.predicted panel (S/P/Bld)Ordered By: Art Bianchi on 05-15-2022 Creatinine [Mass/Vol]0.76 mg/dL0.44-1.03[facility] Eosinophils Auto (Bld) [#/Vol]Ordered By: Art Bianchi on 24-44-1133Glzxdjkiohk (Bld) [#/Vol]0.0 10*3/uL0.0-0.7FKettering Health MiamisburgEosinophils/100 WBC Auto (Bld)Ordered By: Art Bianchi on 58-23-9267Zgtdmrzvuxq/100 WBC (Bld)0.4 %.[facility] HospitalErythrocyte distribution width Auto (RBC) [Ratio]Ordered By: Art Bianchi on 76-72-5316Tkzjbreffzh distribution width (RBC) [Ratio]13.7 %11.9-15.3FKettering Health MiamisburgEstimated glomerular filtration rate (GFR) non- AmericanOrdered By: Art Bianchi on 05-15-2022 GFR/1.73 sq M.predicted among non-blacks MDRD (S/P/Bld) [Vol rate/Area]> 60 mL/MinZanesville City HospitalGlobulin Calc (S) [Mass/Vol]Ordered By: Art Bianchi on 32-69-1646Rctgjpjx (S) [Mass/Vol]3.2 g/dLZanesville City HospitalHematocrit Auto (Bld) [Volume fraction]Ordered By: Art Bianchi on 72-31-1816Fwzsezqfdn (Bld) [Volume fraction]41.0 %36.0-46.0[facility] HospitalLaboratory - Chemistry and Chemistry - challengeOrdered By: Art Bianchi on 97-07-3544Torzup [Catalytic activity/Vol]24.0 U/X08-35PusfwhwfcZanesville City HospitalLaboratory - Hematology and Cell countsOrdered By: Art Bianchi on 60-27-4063Cexcncknv RBC/100 WBC (Bld) [Ratio]0.0 %0-0.5FKettering Health MiamisburgLymphocytes Auto (Bld) [#/Vol]Ordered By: Art Bianchi on 57-69-9315Gechjhbwazz (Bld) [#/Vol]2.6 10*3/uL1.20-4.8[facility] HospitalLymphocytes/100 WBC Auto (Bld)Ordered By: Art Bianchi on 05-15-2022 Lymphocytes/100 WBC (Bld)18.4 %.[facility] HospitalMCH Auto (RBC) [Entitic mass]Ordered By: Art Bianchi on 90-64-1247SEU (RBC) [Entitic mass]28.0 pg25.0-35.0[facility] HospitalMCHC Auto (RBC) [Mass/Vol]Ordered By: Art Bianchi on 84-60-3931GMNT (RBC) [Mass/Vol]33.3 g/dL31.0-37.0[facility] HospitalMCV Auto (RBC) [Entitic vol]Ordered By: Art Bianchi on 68-48-3616CPJ (RBC) [Entitic vol]84.1 tF74-995WehuceyneZanesville City Hospital Monocytes Auto (Bld) [#/Vol]Ordered By: Art Bianchi on 57-72-5980Coekjeltn (Bld) [#/Vol]1.2 10*3/uL0.1-1.00[facility] HospitalMonocytes/100 WBC Auto (Bld)Ordered By: Art Bianchi on 94-30-5619Yozwwwtst/100 WBC (Bld)8.3 %. [facility] HospitalNeutrophils Auto (Bld) [#/Vol]Ordered By: Art Bianchi on 12-71-8934Ujlnptbvbbw (Bld) [#/Vol]10.2 10*3/uL1.2-7.7FKettering Health MiamisburgNeutrophils/100 WBC Auto (Bld)Ordered By: Art Bianchi on 24-59-0814Ndbzezcxyzv/100 WBC (Bld)72.7 %.[facility] HospitalNo Panel InformationOrdered By: Art Bianchi on 68-45-9559Nuuoamuyr GFR ()> 60 mL/MinZanesville City HospitalComment on above:GFR estimated reference range: According to KDOQI guidelines, <60 ml/min/1.73m2 is sufficient todiagnose a patient with chronic kidney disease.Pharmacy Creatinine Clearance (Iwft737.34[facility] HospitalPlatelet mean volume Auto (Bld) [Entitic vol]Ordered By: Art Bianchi on 53-20-9988Vbgnbvso mean volume (Bld) [Entitic vol]8.8 fL6.3-10.7FKettering Health MiamisburgPlatelets Auto (Bld) [#/Vol]Ordered By: Art Bianchi on 80-67-2269Ckjcceofy (Bld) [#/Vol]315 10*3/kP698-681QssbdoodaZanesville City HospitalProtein [Mass/volume] in Serum or PlasmaOrdered By: Art Bianchi on 11-85-0643Lccmrms [Mass/Vol]7.9 g/dL6.1-7.9 [facility] HospitalRBC Auto (Bld) [#/Vol]Ordered By: Art Bianchi on 00-32-4140TUW (Bld) [#/Vol]4.88 10*6/uL4.10-5.10[facility] Centererum or plasma alanine aminotransferase measurement without P-5'-P (enzymatic activiOrdered By: Art Bianchi on 15-85-3944DCI No additional P-5'-P [Catalytic activity/Vol]25 U/Q81-42YdzcjfaeaCincinnati VA Medical Centererum or plasma albumin/globulin mass ratioOrdered By: Art Bianchi on 05-15-2022 Albumin/Globulin [Mass ratio]1.5 {ratio}[facility] Centererum or plasma alkaline phosphatase measurement (enzymatic activity/volume)Ordered By: Art Bianchi on 07-83-9579CAK [Catalytic activity/Vol]66 U/Z35-98VugifxutqCincinnati VA Medical Centererum or plasma aspartate aminotransferase measurement (enzymatic activity/volume)Ordered By: Art Bianchi on 80-63-6494OHD [Catalytic activity/Vol]33 U/K19-93EbysniyoyCincinnati VA Medical Centererum or plasma calcium measurement (mass/volume)Ordered By: Art Bianchi on 14-03-8550Fcfrwgv [Mass/Vol] 10.1 mg/dL8.2-10.2FNationwide Children's Hospitalerum or plasma chloride measurement (moles/volume)Ordered By: Art Bianchi on 32-70-0172Zryuwbzm [Moles/Vol]94 mmol/V13-965WsrpvopjfCincinnati VA Medical Centererum or plasma glucose measurement (mass/volume)Ordered By: Art Bianchi on 26-00-3812Jwhtlnb [Mass/Vol]102 mg/hX39-171VhutoxxdxZanesville City HospitalComment on above:ADA recommended reference range Random Glucose Reference Range is dependent on time and content of last meal. Glucose of more than 200 mg/dL in a nonstressed, ambulatory subject supports the diagnosis of Diabetes Mellitus.Serum or plasma potassium measurement (moles/volume)Ordered By: Art Bianchi on 52-21-6059Rxqpjvfsz [Moles/Vol]3.1 mmol/L3.5-5.1FNationwide Children's Hospitalerum or plasma sodium measurement (moles/volume)Ordered By: Art Bianchi on 01-71-1442Syyaoi [Moles/Vol]135 mmol/L 136-146[facility] Centererum or plasma total bilirubin measurement (mass/volume)Ordered By: Art Bianchi on 92-28-3929Nxoxqnunv [Mass/Vol]1.2 mg/dL0.3-1.2FNationwide Children's Hospitalerum or plasma total carbon dioxide measurement (moles/volume)Ordered By: Art Bianchi on 05-15-2022 CO2 [Moles/Vol]22.2 mmol/L22.0-30.0[facility] Centererum or plasma urea nitrogen measurement (mass/volume)Ordered By: Art Bianchi on 95-80-1184Pybf nitrogen [Mass/Vol]23 mg/dL9-23[facility] Albumin [Mass/volume] in Serum or PlasmaOrdered By: Art Bianchi on 05-13-2022 Albumin [Mass/Vol]4.3 g/dL3.2-5.5FKettering Health MiamisburgAutomated erythrocytes count in urine sediment (number/area)Ordered By: Art Bianchi on 15-66-1073NKD Auto (Urine sed) [#/Area]1-2 [HPF]0-4FKettering Health MiamisburgAutomated leukocytes count in urine sediment (number/area)Ordered By: Art Bianchi on 01-47-2902SPN Auto (Urine sed) [#/Area]1-2 [HPF]0-4FKettering Health MiamisburgBasophils Auto (Bld) [#/Vol]Ordered By: Art Bianchi on 81-45-2502Naxwiesgg (Bld) [#/Vol]0.1 10*3/uL0.0-0.1FKettering Health MiamisburgBasophils/100 WBC Auto (Bld)Ordered By: Art Bianchi on 05-13-2022 Basophils/100 WBC (Bld)1.0 %.[facility] HospitalBilirubin Test strip Ql (U)Ordered By: Art Bianchi on 46-04-6693Jynwdlfzk Ql (U)Negative NegativeZanesville City HospitalBlood hemoglobin measurement (mass/volume)Ordered By: Art Bianchi on 01-66-6951Lhhiktoisw (Bld) [Mass/Vol] 13.7 g/dL12.0-16.0[facility] HospitalBlood leukocytes automated count (number/volume)Ordered By: Art Bianchi on 21-97-0457GBT (Bld) [#/Vol]10.4 10*3/uL4.5-13.5FKettering Health MiamisburgColor Auto (U)Ordered By: Art Bianchi on 27-44-9899Kvcoj (U)YellowYellowZanesville City Hospital Creatinine and Glomerular filtration rate.predicted panel (S/P/Bld)Ordered By: Art Bianchi on 00-38-9619Xmdyicoraz [Mass/Vol]0.76 mg/dL0.44-1.03[facility] HospitalEosinophils Auto (Bld) [#/Vol]Ordered By: Art Bianchi on 16-77-7768Jvyaznerxsl (Bld) [#/Vol]0.5 10*3/uL0.0-0.7FKettering Health MiamisburgEosinophils/100 WBC Auto (Bld)Ordered By: Art Bianchi on 05-13-2022 Eosinophils/100 WBC (Bld)4.6 %.[facility] HospitalErythrocyte distribution width Auto (RBC) [Ratio]Ordered By: Art Bianchi on 05-13-2022 Erythrocyte distribution width (RBC) [Ratio]13.6 %11.9-15.3FKettering Health MiamisburgEstimated glomerular filtration rate (GFR) non- Ordered By: Art Bianchi on 08-45-1926ATM/1.73 sq M.predicted among non-blacks MDRD (S/P/Bld) [Vol rate/Area]> 60 mL/MinZanesville City Hospital Globulin Calc (S) [Mass/Vol]Ordered By: Art Bianchi on 55-75-1659Gbjpvjeg (S) [Mass/Vol]2.7 g/dLZanesville City HospitalHCG ( test) IA.rapid Ql (U)Ordered By: Art Bianchi on 63-24-5829GNG ( test) Ql (U)Negative [facility] HospitalHematocrit Auto (Bld) [Volume fraction]Ordered By: Art Bianchi on 75-21-0549Bnxgtrcwnk (Bld) [Volume fraction]40.5 %36.0-46.0 [facility] HospitalKetselect [facility] [place] Auto test strip (U) [Mass/Vol]Ordered By: Art Bianchi on 26-39-4283Gplqzem (U) [Mass/Vol]TraceNegativeZanesville City HospitalLaboratory - Hematology and Cell countsOrdered By: Art Bianchi on 07-28-7219Eiliqbvpw RBC/100 WBC (Bld) [Ratio]0.0 %0-0.5FKettering Health MiamisburgLaboratory - UrinalysisOrdered By: Art Bianchi on 00-66-9650Qmpjewj casts LM Ql (Urine sed)0-8 [LPF]0-8[facility] City HospitalLymphocytes Auto (Bld) [#/Vol]Ordered By: Art Bianchi on 05-13-2022 Lymphocytes (Bld) [#/Vol]1.4 10*3/uL1.20-4.8[facility] Lymphocytes/100 WBC Auto (Bld)Ordered By: Art Bianchi on 05-13-2022 Lymphocytes/100 WBC (Bld)13.1 %.[facility] Auto (RBC) [Entitic mass]Ordered By: Art Bianchi on 41-82-3154BLQ (RBC) [Entitic mass]28.6 pg25.0-35.0[facility] HospitalMCHC Auto (RBC) [Mass/Vol]Ordered By: Art Bianchi on 74-80-6788LLKV (RBC) [Mass/Vol]33.7 g/dL31.0-37.0[facility] HospitalMCV Auto (RBC) [Entitic vol]Ordered By: rAt Bianchi on 17-02-6601VIN (RBC) [Entitic vol]84.7 nY53-729RgfeonvkuZanesville City Hospital Monocytes Auto (Bld) [#/Vol]Ordered By: Art Bianchi on 28-93-1138Neapdamzv (Bld) [#/Vol]0.4 10*3/uL0.1-1.00[facility] HospitalMonocytes/100 WBC Auto (Bld)Ordered By: Art Bianchi on 55-18-1035Dbjrnuvut/100 WBC (Bld)4.2 %. [facility] HospitalNeutrophils Auto (Bld) [#/Vol]Ordered By: Art Bianchi on 52-21-0246Pqcnstusnvy (Bld) [#/Vol]8.0 10*3/uL1.2-7.7FKettering Health MiamisburgNeutrophils/100 WBC Auto (Bld)Ordered By: Art Bianchi on 07-69-2888Jqgdycideem/100 WBC (Bld)77.1 %.[facility] Nitrite Test strip Ql (U)Ordered By: Art Bianchi on 75-64-6501Oyrztes Ql (U) NegativeNegMary Rutan HospitalNo Panel InformationOrdered By: Art Bianchi on 99-20-7324Bdvumcwcb GFR ()> 60 mL/MinZanesville City HospitalComment on above:GFR estimated reference range: According to KDOQI guidelines, <60 ml/min/1.73m2 is sufficient todiagnose a patient with chronic kidney disease.Pharmacy Creatinine Clearance (Zghc507.80[facility] HospitalPlatelet mean volume Auto (Bld) [Entitic vol]Ordered By: Art Bianchi on 94-49-5667Jrcykufx mean volume (Bld) [Entitic vol]8.6 fL6.3-10.7 [facility] HospitalPlatelets Auto (Bld) [#/Vol]Ordered By: Art Bianchi on 29-68-1697Gzhkfybwt (Bld) [#/Vol]264 10*3/mS814-969AzibouymcZanesville City HospitalProtein Auto test strip (U) [Mass/Vol]Ordered By: Art Bianchi on 85-34-6569Pkoxtma (U) [Mass/Vol]30 mg/dLNegativeZanesville City HospitalProtein [Mass/volume] in Serum or PlasmaOrdered By: Art Bianchi on 59-34-9746Ugvggdk [Mass/Vol]7.0 g/dL6.1-7.9[facility] HospitalRBC Auto (Bld) [#/Vol]Ordered By: Art Bianchi on 59-44-2666ZVS (Bld) [#/Vol]4.78 10*6/uL4.10-5.10[facility] Centererum or plasma alanine aminotransferase measurement without P-5'-P (enzymatic activiOrdered By: Art Bianchi on 84-90-6158KEX No additional P-5'-P [Catalytic activity/Vol]19 U/L10-60 [facility] Centererum or plasma albumin/globulin mass ratio Ordered By: Art Bianchi on 32-70-0372Zizolbu/Globulin [Mass ratio]1.6 {ratio} [facility] Centererum or plasma alkaline phosphatase measurement (enzymatic activity/volume)Ordered By: Art Bianchi on 12-18-0647ATI [Catalytic activity/Vol]69 U/U61-58HngkxztxbCincinnati VA Medical Centererum or plasma aspartate aminotransferase measurement (enzymatic activity/volume)Ordered By: Art Bianchi on 88-25-4775FHF [Catalytic activity/Vol]19 U/E40-44CpoahxmviCincinnati VA Medical Centererum or plasma calcium measurement (mass/volume)Ordered By: Art Bianchi on 99-17-5257Ociwrcv [Mass/Vol]9.9 mg/dL8.2-10.2FNationwide Children's Hospitalerum or plasma chloride measurement (moles/volume) Ordered By: Art Bianchi on 20-55-5003Lqtdvhla [Moles/Vol]107 mmol/L95-114 [facility] Centererum or plasma glucose measurement (mass/volume)Ordered By: Art Bianchi on 12-62-8546Lobapvs [Mass/Vol]140 mg/dL 70-100[facility] City HospitalComment on above:ADA recommended reference range Random Glucose Reference Range is dependent on time and content of last meal. Glucose of more than 200 mg/dL in a nonstressed, ambulatory subject supports the diagnosis of Diabetes Mellitus.Serum or plasma potassium measurement (moles/volume)Ordered By: Art Bianchi on 89-90-5530Duwwmjrbb [Moles/Vol]3.7 mmol/L3.5-5.1FNationwide Children's Hospitalerum or plasma sodium measurement (moles/volume)Ordered By: Art Bianchi on 40-42-0426Xilqex [Moles/Vol]138 mmol/L 136-146[facility] Centererum or plasma total bilirubin measurement (mass/volume)Ordered By: Art Bianchi on 66-50-5979Ulujaqhyr [Mass/Vol]0.5 mg/dL0.3-1.2FNationwide Children's Hospitalerum or plasma total carbon dioxide measurement (moles/volume)Ordered By: Art Bianchi on 05-13-2022 CO2 [Moles/Vol]19.0 mmol/L22.0-30.0[facility] Centererum or plasma urea nitrogen measurement (mass/volume)Ordered By: Art Bianchi on 64-70-1857Tbyj nitrogen [Mass/Vol]11 mg/dL9-23[facility] Specific gravity Auto test strip (U) [Rel density]Ordered By: Art Bianchi on 06-81-2417Mvpmoeoj gravity (U) [Rel density]1.0181.001-1.030[facility] Centerquamous epithelial cells detection in urine sediment by light microscopyOrdered By: Art Bianchi on 64-54-4290Vrvwuengvs cells.squamous LM Ql (Urine sed)20-30 [HPF][address] [place], [place] [address]Urine bacteria detection by automated methodOrdered By: Art Bianchi on 18-11-3373Prohycll Auto Ql (U)2+None SeenZanesville City HospitalUrine clarity by refractometry automatedOrdered By: Art Bianchi on 59-96-3376Phlctbl Refractometry automated (U)CloudyClearFKettering Health MiamisburgUrine glucose measurement by automated test strip (mass/volume)Ordered By: Art Bianchi on 07-52-3329Mdvakvg Auto test strip (U) [Mass/Vol]Normal mg/dLNormalZanesville City HospitalUrine hemoglobin detection by automated test stripOrdered By: Art Bianchi on 70-66-6178Ghoahxkzpu Auto test strip Ql (U)NegativeNegativeZanesville City HospitalUrine leukocyte esterase detection by automated test stripOrdered By: Art Bianchi on 86-62-9839Wyawlrupy esterase Auto test strip Ql (U)Negative NegativeZanesville City HospitalUrobilinogen Auto test strip (U) [Mass/Vol]Ordered By: Art Bianchi on 88-29-5290Mamzxjmuckdg (U) [Mass/Vol]Normal mg/dLNormalZanesville City HospitalpH Auto test strip (U)Ordered By: Art Bianchi on 49-41-3440aW (U)[pH]5.0-9.0[facility] City HospitalCNPN on 32-41-3480EWILFmbajcfxe (OTOLMN) PILI PARIKH ([id number]) 3 F Date Time Provider Department 10/10/21 ROLANDO WOOTEN OTOLMN During your visit today, we recorded the following information about you: Rolando Wooten MD 10/10/2021 12:44 PM Signed Spoke with patient. Monospot positive. Waiting on CBC with diff - wbc 10. 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 Ordered further labs as somewhat atypical [...] [B27.80] Order(s):HEPATIC FUNCTION PNL [SQHFP] Order #: [id number] FUTURE HIV 1 2 COMBO(AG/AB),WITH REFLEX TO DIFFERENTIATION [SQHIV12] Order #: [id number] FUTURE CMV IGG/IGM TITER [[id number]] Order #: [id number] FUTURE LISSA-HENSON VCA IGM [SQEBVM] Order #: [id number] FUTURE EBV EA AB IGG [[id number]] Order #: [id number] FUTURE LISSA-HENSON VCA IGG [SQEBVG] Order #: [id number] FUTURE CMV IGG/IGM TITER [[id number]] Order #: [id number] EBV EA AB IGG [[id number]] Order #: [id number] Prescriptions as of 10/27/2021 - HYDROcodone-acetaminophen (HYCET) [...] 10/09/2021 Encounter Status:Closed by ROLANDO WOOTEN on 10/10/21NoSamaritan HospitalAFB Cult and Stainon 67-12-2702QLT Cult and StainSp. Request/Comment: - Specimen received in sterile container. Smear Result - No acid fast bacilli seen by fluorochrome stain Culture Result - No Acid Fast Bacilli isolated after 46 daysNoSamaritan HospitalComment on above:Performed By: #### AFC #### [facility] [address] [place] [address] Eurxvzyk Cultureon 13-93-1039Cazkjacg CultureSp. Request/Comment: - Specimen received in sterile container. Culture Result - Few Mixed anaerobic jori --> ABNORMAL ALERT No Bacteroides fragilis group isolated. No Clostridium perfringens isolatedCritically abnormal [facility] HospitalComgarden city hospital on above:Performed By: #### ANACUL #### [facility] [address] [place], [place] [address] Fnzux Metabolic Panlon 03-98-6563Xfzom gap [Moles/Vol]14 mmol/L Normal9-18[facility] on above:Result Comment: (NOTE) Reference ranges for this patient's age group have not been established. These reference ranges reflect verified or established ranges for the adult population. Interpret these ranges with caution using the clinical context and additional reference resources.Performed By: #### CBCDIF, BMP, MONOLX #### [place] [address] [place] [address] Oowvqqj [Mass/Vol]9.4 mg/dLNormal8.4-10.2CFirelands Regional Medical Center Comment on above:Performed By: #### CBCDIF, BMP, MONOLX #### [place] [address] [place] [id number] Uzhwvnjf [Moles/Vol]99 mmol/GMgjxxr25-562YizpjpvjpMercy Health Willard Hospital Comment on above:Result Comment: (NOTE) Reference ranges for this patient's age group have not been established. These reference ranges reflect verified or established ranges for the adult population. Interpret these ranges with caution using the clinical context and additional reference resources.Performed By: #### CBCDIF, BMP, MONOLX #### [facility] [place], [place] [address] KZ0 [Moles/Vol]23 mmol/AXpepaq05-75FsdvtrfvnTriHealth on above:Result Comment: (NOTE) Reference ranges for this patient's age group have not been established. These reference ranges reflect verified or established ranges for the adult population. Interpret these ranges with caution using the clinical context and additional reference resources.Performed By: #### CBCDIF, BMP, MONOLX #### [facility] [address] [place], [place] [address] Xthpvppwus [Mass/Vol]0.64 mg/dLNormal0.58-0.96[facility] HospitalComment on above:Result Comment: Reference ranges for this patient's age group have not been established. These reference ranges reflect verified or established ranges for the adult population. Interpret these rangeswith caution using the clinical context and additional reference resources.Performed By: #### POPEYEFCHRISTEL, MONOLX #### [facility] [address] [place], [place] [address] eQKW-Ped. Factor0.65NormalCKnox Community Hospital on above:Result Comment: eGFR (Estimated GFR) [...] interpretation.Performed By: #### CHRISTEL BRIGHT, MONOLX #### [facility] [address] [place], [place] [address] Ftdgxbq [Mass/Vol]89 mg/zHOtdyii12-88TdhoytzxxMercy Health Willard Hospital Comment on above:Result Comment: Reference ranges for this patient's age group have not been established. These reference ranges reflect verified or established ranges for the adult population. Interpret these rangeswith caution using the clinical context and additional reference resources. The [place] Diabetes Association (ADA) provides guidance for cutoff [...] Standards of Medical Care in Diabetes 2016, [place] [employer] Association. Diabetes Care. 2016.39(Suppl 1).Performed By: #### CBCSAULFCHRISTEL, MONOLX #### [facility] [address] [place], [place] [address] Ucoaluqvr [Moles/Vol]4.4 mmol/LNormal3.7-5.1CKnox Community Hospital on above:Result Comment: (NOTE) Reference ranges for this patient's age group have not been established. These reference ranges reflect verified or established ranges for the adult population. Interpret these ranges with caution using the clinical context and additional reference resources.Performed By: #### CBCDIFCHRISTEL, MONOLX #### [facility] [place], [place] [address] Ejblaa [Moles/Vol]136 mmol/EDrpeas041-770AiqxicctyMercy Health Willard Hospital Comment on above:Result Comment: (NOTE) Reference ranges for this patient's age group have not been established. These reference ranges reflect verified or established ranges for the adult population. Interpret these ranges with caution using the clinical context and additional reference resources.Performed By: #### POPEYEFCHRISTEL, MONOLX #### [facility] [address] [place], [place] [address] Xmnj nitrogen [Mass/Vol]8 mg/dLNormal5-18[facility] Comment on above:Performed By: #### CBCDIF, BMP, MONOLX #### [facility] [place], [place] [address] FCL and Differentialon 64-54-1076Qme Baso0.11 k/uLHigh<0.11CKnox Community Hospital on above:Performed By: #### CBCDIF, BMP, MONOLX #### [facility] [address] [place], [place] [address] Dhk Lym4.27 K/uLHigh1.00-4.00[facility] on above:Performed By: #### CBCDIF, BMP, MONOLX #### [place] [address] [place] [address] Twr Mono1.10 k/uLHigh<0.87[facility] on above:Performed By: #### CBCDIF, BMP, MONOLX #### [place] [address] Xxa Neut5.37 k/uLNormal1.45-7.50[facility] on above:Performed By: #### CBCDIF, BMP, MONOLX #### [place] [address] Vkcqwpfjj/100 WBC (Bld)1 %NormalTriHealth on above:Performed By: #### CBCDIF, BMP, MONOLX #### [place] [phone] CommentsSEE COMMENTNormalCKnox Community Hospital on above:Result Comment: Platelet estimate adequatePerformed By: #### CBCDIF, BMP, MONOLX #### [place] [address] Lghggekofdr (Bld) [#/Vol]0.11 10*3/uLNormal<0.46[facility] on above:Performed By: #### CBCDIF, BMP, MONOLX #### [place] [address] Hwctvdmulvz/100 WBC (Bld)1 %NormalTriHealth on above:Performed By: #### CBCDIF, BMP, MONOLX #### [place] [phone] distribution width (RBC) [Ratio]13.4 %Fawgjd40.5-15.0 [facility] on above:Performed By: #### CBCDIF, BMP, MONOLX #### [facility] [address] [place], [place] [address] Kcywnmeuki (Bld) [Volume fraction]39.8 %Okuubj09.0-46.0[facility] on above:Performed By: #### CBCDIF, BMP, MONOLX #### [place] [address] [place], [place] [address] Vdmhgwhiff (Bld) [Mass/Vol]12.5 g/eIDbgvux86.5-15.5CKnox Community Hospital on above:Performed By: #### CBCDIF, BMP, MONOLX #### [place] [address] Joqfwceufmd/100 WBC (Bld)39 %NormalTriHealth on above:Performed By: #### CBCDIF, BMP, MONOLX #### [address] [address] MVA90.4 dYNiaygk51.0-34.0[facility] on above: Performed By: #### CBCDIF, BMP, MONOLX #### [address] [address] QVZI (RBC) [Mass/Vol]31.4 g/xFObzymy52.5-36.0[facility] on above:Performed By: #### CBCDIF, BMP, MONOLX #### [place] [address] [place], [place] [address] SOY (RBC) [Entitic vol]87.3 bICxglkc09.0-100.0[facility] on above:Performed By: #### CBCDIF, BMP, MONOLX #### [place] [address] [place], [place] [address] Dlfvjfnkc/100 WBC (Bld)10 %NormalTriHealth on above:Performed By: #### CBCDIF, BMP, MONOLX #### [place] [address] [place] [address] Myagltjabij/100 WBC (Bld)49 %NormalTriHealth on above:Performed By: #### CBCDIF, BMP, MONOLX #### [place] [address] Dibuxmlm mean volume (Bld) [Entitic vol]10.3 fLNormal9.0-12.7 [facility] on above:Performed By: #### CBCDIF, BMP, MONOLX #### [place] [address] Rttdtliwv (Bld) [#/Vol]218 10*3/mERhazlv168-111XbdmwkvxyTriHealth on above:Performed By: #### CBCDIF, BMP, MONOLX #### [place] [address] AVA (Bld) [#/Vol]4.56 10*6/uLNormal3.90-5.20[facility] on above:Performed By: #### CBCDIF, BMP, MONOLX #### [place] [address] Mff Cell MorphSEE COMMENTNormalCKnox Community Hospital on above:Result Comment: Slight Polychromasia Few OvalocytesPerformed By: #### CBCDIF, BMP, MONOLX #### [place] [address] QUT (Bld) [#/Vol]10.95 10*3/uLNormal3.70-11.00[facility] on above:Performed By: #### CBCDIF, BMP, MONOLX #### [address] [place], [place] [address] LKKWei 13-04-8330AZWMFufowt Visit (OTOLMN) PILI PARIKH ([id number]) 3 F Date Time Provider Department 10/09/21 [...] The nasal passageways a (more content not included)...NormalMercy Health Willard HospitalFungal Cultureon 24-47-0345Fkxfcl CultureSp. Request/Comment: - Specimen received in sterile container. Culture Result - No Fungus isolated after 28 daysNormalCFirelands Regional Medical CenterComment on above:Performed By: #### FCUL #### [facility] [address] [place] [address] Rvwh Slide Teston 38-82-1622Ztei Slide TestPositiveCritically abnormalNegativeMercy Health Willard HospitalComment on above:Performed By: #### CBCDIF, BMP, MONOLX #### [facility] [address] [place] [address] Evema Culture/Stainon 17-72-4809Ibbbs Culture/StainSp. Request/Comment: - Swab Smear Result - Rare Gram positive cocci --> ABNORMAL ALERT Rare Polymorphonuclear leukocytes Culture Result - Rare Mixed oral jori For wound culture, tissue or aspirates are superior to swab specimens. If a swab must be used, eSwab is preferred. Critically abnormalMercy Health Willard HospitalComgarden city hospital on above:Performed By: #### WCUL #### [facility] [address] [place] [address] Vvbvieyxn Summaryon 91-29-2784Vrzmgywnz SummarySend Summary:Discharge Summary Providers:Provider RoleProvider Name? ReferringLoLydia, Radha Hope? PrimaryBuMelida franco? Jonas Vizcarra Note Recipients: Melida Daniel MD - [id number] [[id number]]Radha Unger MDZaraa, Solomon Gustav, MD Discharge: Summary:Admission Date: .23-Jun-2018 01:12:00Discharge Date: 32-Dxh-2384Dtbbxsgta Physician at Discharge: Jonas Mancusodmission Reason: Atenolol and tylenol overdose(1)Final Discharge Diagnoses: Other Specified Depressive DisorderProcedures: noneCondition at Discharge: SatisfactoryDisposition at Discharge: .HomeVital Signs: T GDSDLaD0Nnemy37.66042004/86Date/Time8/ 9:088/ 9:0806/28 9:0806/28 9:08Range(36.6C - 36.6C ) [...] to Schedule in: 1x weekly - Location: [address] [place], [place] [address] Phone Number: phone: [phone] l fax: [phone] Follow-Up Appointment 02: Physician/Dept/Service: Griffin Lazcano Reason for Referral: Case Management Call to Schedule in: 1x weekly Location: [address] [place] [address] Phone Number: phone: [phone] l fax: [phone] Discharge Medications: Home MedicationQvar 80 mcg/inh inhalation [...] - Pending: NoneRadiology Results - Pending: None Signature/Cosignature/Attestation:Material Liaison Only - Attest to Medical Student/Acting Steam Gigger documentationAs ateaching institution, we recognize that medical [...] Last Updated: 14-Jul-2018 10:37 by Leidy Nugent ([facility]ia HealthClinical Event Note-Telephoneon 63-06-1089Tzvbzeej Event Note-TelephoneEvent:Topic: TelephoneDetails:Called and talked to both parents (mom and dad). Updated information aboutpatient clinical status. Also told that that patient is experiencing nightmaresand sleep issues. Mom and dad was given information about the risk and benefitsof medication. In particular this commercial lines underwriter talked about clonidine and guanfacineoption. Parent at this time denied adding any medication and said they wouldthink about it. Mom also reported that patient is prescribed gabapentin was for headache andshe said that medication has helped her a lot. Electronic Signatures:Maikol Wong ( (Resident)) (Signed 27-Jun-2018 16:13)Authored: Event Last Updated: 27-Jun-2018 16:13 by Maikol Borja ( (Resident))Essentia HealthDaily Progress Note - Child Psychiatryon 60-61-5600Ohklvkf mass concSubjective Data:PILI PARIKH is a 13 year old Female who is Hospital Day # 5. [facility] Mancuso, chart reviewed. Patient [...] and benefits of medication. In particular this commercial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 hours as needed for cough, wheezingor shortness of breath and prior to exercise;Therapy: 23Sep2014 to (Last Rx:19Gkc8203) Requested for: 24Mar2015 OrderedPromethazine HCl - 25 MG Oral Tablet; 1 tablet orally every 12 hours as needed fornausea/vomiting Requested for: 16Dec2017; Last Rx:16Dec2017 OrderedQvar 80 MCG/ACT Inhalation Aerosol Solution; INHALE TWO PUFFS BY MOUTH TWICEA DAY WITH A SPACER;Therapy: 23Sep2014 to (Last Rx:89Reu1417) Requested for: 27Apr2016 OrderedTri-Sprintec 0.18/0.215/0.25 MG-35 MCG Oral Tablet;Therapy: 23Mar2018 to RecordedUnspecified Medication; Vitamin B2-400 Oral Capsule1 capsule orally once a day;Therapy: (Recorded:26Rxc3770) to RecordedVitamin D 1000 UNIT Oral Tablet; TAKE 1 TABLET DAILY;Therapy: 14Apr2018 to (Evaluate:02Rke1535) Requested for: 37Eas7931; LastRx:08Qnj4341 Ordered Signatures Electronically signed by : Mere Simpson APRN-[facility] WISCONS[facility]– MILWAUKEERadha; Jun 05 2018 10:46AM EST (Author)NormalUH TouchworksDischarge Summaryon 54-71-9324Dvbstzlsz SummarySend Summary:Discharge Summary Providers:Provider Role Provider Name? Referring Dali Mcintosh? Attending Adeola Colon? Primary Zac Daniel Recipients: Adeola Colon MD Baez-Socorro, MD Fredy Marley Natalie, MD - [phone] [[id number]]Dali Mcintosh MD - [phone] [Preferred]Discharge:Summary:Admission Date: .09-Aug-2017 21:44:00Discharge Date: 86-Jhw-4365Onefbxkoy Physician at Discharge: Adeola Colon NAdmission Reason: vomiting, hematemesisFinal Discharge Diagnoses: Functional abdominal painProcedures: null Aug 11, 2017Condition at Discharge: SatisfactoryDisposition at Discharge: .HomeVital Signs: T P R BP DmS4Ocgvl 36.6 70 18 126/84 98%Date/Time 08/24 8:58 [...] but worse recently. She was admitted [facility] last month for the vomiting. She [...] Saturday September 02, 2017 at3:30 pm. Location: [place] [address] Gvucbn-Up Appointment 02: Physician/Dept/Service: Neurology: Caty Simpson Call to Schedule in: 1st available Scheduled Date/Time: 31-Aug-2017 14:00 Location: [address] [place] [address] Ysfmnp-Up Appointment 03: Physician/Dept/Service: ENT (ear, nose, and [...] AttestationLast Updated: 24-Aug-2017 23:59 by Adeola Colon ()[facility] HealthPD ABDOMEN, SINGLE VIEWon 78-58-6599DE ABDOMEN, SINGLE VIEWMRN: [id number] Name: PILI PARIKH STUDY:PD ABDOMEN, SINGLE VIEW; 08/21/2017 12:35 pm INDICATION:Signs/Symptoms: NG placement. COMPARISON:None. ORDERING CLINICIAN:Kelle BOATENG FINDINGS:Tip of NG overlies the gastric body. There is a nonobstructive bowel gas pattern. Visualized soft tissues and osseous structures are unremarkable. The lung bases are clear. IMPRESSION:Tip of NG overlies the gastric body.Electronically signed by: COREY JOHNS, Johnson City Medical CenterNR MRI BRAIN WOon 50-44-4843DJ MRI BRAIN WOMRN: [id number] Name: PILI PARIKH STUDY:NR MRI BRAIN WO; [...] Chiari malformation. The study was interpreted at [facility].Electronically signed by: Benita HARDYBarnesville Hospital Surgical Pathology Departmenton 60-54-0805THS Surgical Pathology DepartmentNamPILI Murphy Pathologist: SANAZ MARIate [...] specimen is submitted in toto in one cassette.MXWmxw/08/11/2017NoPeak View Behavioral HealthComment on above:Performed By: #### T4FRE ####[facility], [place] [address]LAWTQGUox 08-10-2017 Amylase enzyme act/vol19 U/ZGqklkk07 - 76[facility] Medical CenterComment on above:Performed By: #### VTDOH ####[place] [id number], [place] [address]F-WGEYOXUW PROTEINon 59-11-3407GQK mass conc0.34 mg/dL NormalSaint Francis Medical CenterComment on above:Result Comment: REF VALUE< 1.00Performed By: #### KACIH ####[place] [id number], [place] [address]HIF AND DIFFERENTIALon 08-10-2017% AUTOMATED IMMATURE GRAN0.3 %Normal0.0 - 1.0[facility] Medical CenterComment on above:Result Comment: Percent differential counts (%) should be interpreted in the context of the absolute cell counts (cells/L).Performed By: #### KACIH ####[place] [address], [place] [address]% UOFLFZZHDO23.9 %Tzesek03.0 - 69.0[facility] CenterComment on above:Performed By: #### VTDOH ####[facility] [place] [place], [place] [address]Dziohvcye/100 WBC Auto (Bld)0.4 %Normal0.0 - 1.0[facility] Medical CenterComment on above: Performed By: #### MERCEDDOH ####[place] [address], [place] [address]Lfzklwytu/100 WBC Auto (Bld)0.03 x10E9/LNormal0.00 - 0.10 [facility] CenterComment on above:Performed By: #### VTDOH ####[facility], [place] [address]Ovujwfsuqgp Auto #/vol (Bld)0.29 10*3/uLNormal0.00 - 0.70[facility] Medical CenterComment on above:Performed By: #### VTDOH ####[facility], [place] [address]Izuopsrjvke/100 WBC Auto (Bld)4.2 %Normal0.0 - 5.0[facility] Medical CenterComment on above:Performed By: #### VTDOH ####[facility], [place] [address]Hotbfmawwbn distribution width Auto Ratio (RBC)14.1 %Lheuqy87.5 - 14.5[facility] CenterComment on above:Performed By: #### VTDOH ####[facility], [place] [address]Dvxfstxluq Auto Volume Fraction (Bld) 35.4 %Low36.0 - 46.0[facility] CenterComment on above:Performed By: #### VTDOH ####[facility] [place] [address] Hemoglobin mass conc (Bld)11.0 g/dLLow12.0 - 16.0[facility] Comment on above:Performed By: #### MERCEDDOH ####[facility], [place] [address]Qefptbdtyqw Auto #/vol (Bld)2.33 10*3/uLNormal1.80 - 4.80[facility] CenterComment on above:Performed By: #### VTDOH ####[facility] [place] [address] Lymphocytes/100 WBC Auto (Bld)33.8 %Shbdxg80.0 - 48.0[facility] Comment on above:Performed By: #### VTDOH ####[facility], [place] [address]YTCR Auto mass conc (RBC)31.1 g/gJUkefkc59.0 - 37.0[facility] CenterComment on above:Performed By: #### VTDOH ####[facility], [place] [address]VOE Auto Entitic volume (RBC)80 xGLpqsxj43 - 102[facility] CenterComment on above: Performed By: #### VTDOH ####[facility], [place] [address]Orkhxohoa Auto #/vol (Bld)0.58 10*3/uLNormal0.10 - 1.00[facility] CenterComment on above:Performed By: #### KACIH ####[facility], [place] [address]Wxhfsduqs/100 WBC Auto (Bld)8.4 %Normal3.0 - 9.0[facility] CenterComment on above: Performed By: #### MERCEDDOH ####[facility], [place] [address]Yjbikunnmkp Auto #/vol (Bld)3.65 10*3/uLNormal1.20 - 7.70 [facility] CenterComment on above:Performed By: #### KACIH ####[place] [id number], [place] [address]Ucncuypfy RBC/100 WBC Ratio (Bld)0.0 /100 WBCNormal0.0-0.0[facility] CenterComment on above:Performed By: #### MERCEDDOH ####[facility], [place] [address]Xbezsqads Auto #/vol (Bld)256 10*3/lKXmwpbc786 - 400[facility] CenterComment on above:Performed By: #### MERCEDDOH ####[facility], [place] [address]FMI Auto #/vol (Bld) 4.40 x10E12/LNormal4.10 - 5.20[facility] CenterComment on above: Performed By: #### MERCEDDOH ####[facility], [place] [address]RWI Auto #/vol (Bld)6.9 10*3/uLNormal4.5 - 13.5[facility] CenterComment on above:Performed By: #### VTDOH ####[facility], [place] [address]DODLLQ DISEASE SEROLOGY PANELon 66-07-6876ZBMKAGY ABS, AON9Lginwc3 - 14[facility] CenterComment on above:Result Comment: False negative Deamidated Gliadin Peptide Antibody, IgA results can occur in patients already adhering to a gluten-free diet or patients with IgA deficiency. Tissue Transglutaminase Antibody, IgA is the preferred test for screening patients with suspected Celiac Disease. Performed By: #### T4FRE ####[facility], [place] [address]DGNARLQ ABS, IGG<8Hsuark5 - 14[facility] Comment on above:Result Comment: False negative Deamidated Gliadin Peptide Antibody, IgG results can occur in patients already adhering to a gluten-free diet. Tissue Transglutaminase Antibody, IgA is the preferred test for screening patients with suspected Celiac Disease.Performed By: #### T4FRE ####[facility], [place] [address]EIQ AB,IGA<2Bwcduk1 - 14[facility] CenterComment on above:Result Comment: Celiac disease is unlikely. False negative Tissue Transglutaminase Antibody, IgA results can occur in approximately 10% of patients with celiac disease, patients already adhering to agluten-free diet, or patients with IgA deficiency.Performed By: #### T4FRE ####[facility], [place] [address]NNT AB,IGG<1 Normal0 - 14[facility] CenterComment on above:Result Comment: False negative Tissue Transglutaminase Antibody, IgG results can occur in patients a lready adhering to a gluten-free diet. Tissue Transglutaminase Antibody, IgA is the preferred test for screening patients with suspected Celiac Disease. Performed By: #### T4FRE ####[facility], [place] [address]VYDHTEAGLOU SCREENon 99-38-7813mJRB Coag time (Bld)28 s Enprhc30 - 36[facility] CenterComment on above:Result Comment: THE APTT IS NO LONGER USED FOR MONITORING UNFRACTIONATED HEPARIN THERAPY. FOR MONITO RING HEPARIN THERAPY, USE THE HEPARIN ASSAY.Performed By: #### VTDOH ####[facility], [place] [address]NIG Coag RelTime (PPP)1.1 {INR}Normal0.9 - 1.1[facility] CenterComment on above: Performed By: #### VTDOH ####[facility], [place] [address]Ocolfpeywfc time (PT) Coag time (PPP)12.1 sNormal9.8 - 12.7[facility] CenterComment on above:Performed By: #### VTDOH ####[facility], [place] [address]YGGOPXA FUNCTION PANELon 63-13-9848FQR enzyme act/xyy328 U/TUytgnp22 - 239[facility] CenterComment on above:Performed By: #### VTDOH ####[facility], [place] [address]OTI enzyme act/vol39 U/LHigh3 - 28[facility] CenterComment on above:Result Comment: Patients treated with Sulfasalazine may generate falsely decreased results for ALT.Performed By: #### KACIH ####[facility], [place] [address]NDP enzyme act/vol27 U/LHigh9 - 24[facility] CenterComment on above: Performed By: #### VTDOH ####[facility], [place] [address]Cfwoqkhpe mass conc0.4 mg/dLNormal0.0 - 0.9[facility] CenterComment on above:Performed By: #### VTDOH ####[facility], [place] [address]Dmypgypen.direct mass conc0.1 mg/dL Normal0.0 - 0.3[facility] CenterComment on above:Performed By: #### VTDOH ####[facility], [place] [address]Zrsbhxz mass conc5.7 g/dLLow6.2 - 7.7[facility] CenterComment on above: Performed By: #### VTDOH ####[facility], [place] [address]TPXVBQas 32-33-4315Vehlcc enzyme act/vol16 U/LNormal9 - 82[facility] CenterComment on above:Result Comment: Venipuncture immediately after or during the administration of Metamizole may lead to falsely low results. Testing should be performed immediately prior to Metamizole dosing.Performed By: #### VTDOH ####[facility], [place] [address]YIEFZ FUNCTION PANELon 15-34-6752Wgkaxsr mass conc3.8 g/dLNormal3.4 - 5.0[facility] CenterComment on above:Performed By: #### T4FRE ####[facility] [place] [address] Performed By: #### VTDOH ####[facility], [place] [address]Idbhq gap 3 molar conc13 mmol/XSknoyr22 - 30[facility] CenterComment on above:Performed By: #### T4FRE ####[facility], [place] [address]Bwqbfyg mass conc9.2 mg/dLNormal8.5 - 10.7[facility] CenterComment on above:Performed By: #### T4FRE ####[facility], [place] [address]Bjrlrvuc molar conc 106 mmol/IZpsizy02 - 107[facility] CenterComment on above:Performed By: #### T4FRE ####[facility], [place] [address]Dncdsolkgv mass conc0.56 mg/dLNormal0.50 - 1.00[facility] Comment on above:Performed By: #### T4FRE ####[facility], [place] [address]Qgxwdnu mass fudu965 mg/fAXlmb83 - 99[facility] CenterComment on above:Performed By: #### T4FRE ####[facility], [place] [address]DVB5 molar conc (Bld)26 mmol/LNormal 18 - 27[facility] CenterComment on above:Performed By: #### T4FRE ####[facility], [place] [address]Swqcnlkhe mass conc4.3 mg/dLNormal3.0 - 5.4[facility] CenterComment on above: Result Comment: The performance characteristics of phosphorus testing in heparinized plasma have been validated by the individual laboratory site where testing is performed. Testing on heparinizedplasma is not approved by the FDA; however, such approval is not necessary.Performed By: #### T4FRE ####[facility], [place] [address]Okzfkipye molar conc 3.9 mmol/LNormal3.5 - 5.3[facility] CenterComment on above:Performed By: #### T4FRE ####[facility], [place] [address]Enaybf molar lxvi689 mmol/GLtndbx732 - 145[facility] Comment on above:Performed By: #### T4FRE ####[facility], [place] [address]Tklw nitrogen mass conc11 mg/dLNormal6 - 23[facility] CenterComment on above:Performed By: #### T4FRE ####[facility], [place] [address]EOJAGKYcl 08-09-2017 Amylase enzyme act/vol22 U/UYwveln37 - 76[facility] CenterComment on above:Performed By: #### AMIRA ####[facility], [place] [address]X-WXYHHHAQ PROTEINon 21-95-6150NHS mass conc0.36 mg/dL NormalSaint Francis Medical CenterComment on above:Result Comment: REF VALUE< 1.00Performed By: #### CRP ####[place] [id number], [place] [address]YWY AND DIFFERENTIALon 08-09-2017% AUTOMATED IMMATURE GRAN0.3 %Normal0.0 - 1.0[facility] CenterComment on above:Result Comment: Percent differential counts (%) should be interpreted in the context of the absolute cell counts (cells/L).Performed By: #### CBCDF ####[place] [address], [place] [address]% PSQKWABEIC01.6 %Ctgger21.0 - 69.0[facility] CenterComment on above:Performed By: #### CBCDF ####[place] [id number] [place] [place] [address]Unaqeofkl/100 WBC Auto (Bld)0.04 x10E9/LNormal0.00 - 0.10[facility] CenterComment on above:Performed By: #### CBCDF ####[place] [address] [place] [address]Ujdacvatx/100 WBC Auto (Bld)0.5 %Normal0.0 - 1.0[facility] CenterComment on above:Performed By: #### CBCDF ####[place] [address] [place] [address]Bvrsoezzdqe Auto #/vol (Bld)0.28 10*3/uLNormal0.00 - 0.70[facility] CenterComment on above:Performed By: #### CBCDF ####[place] [id number] [place] [address]Vyoviqnmose/100 WBC Auto (Bld)3.6 %Normal0.0 - 5.0[facility] CenterComment on above:Performed By: #### CBCDF ####[place] [address] [place] [address]Wzfjpynatoj distribution width Auto Ratio (RBC)14.4 %Brxujd43.5 - 14.5[facility] CenterComment on above:Performed By: #### CBCDF ####[place] [address] [place], [place] [address]Bnuhfkeiid Auto Volume Fraction (Bld) 37.7 %Vaevjn49.0 - 46.0[facility] CenterComment on above:Performed By: #### CBCDF ####[facility] [place] [address] Hemoglobin mass conc (Bld)11.5 g/dLLow12.0 - 16.0[facility] Comment on above:Performed By: #### CBCDF ####[facility], [place] [address]Vgwidneknka Auto #/vol (Bld)2.20 10*3/uLNormal1.80 - 4.80[facility] CenterComment on above:Performed By: #### CBCDF ####[facility] [place] [address] Lymphocytes/100 WBC Auto (Bld)28.2 %Uatgzc29.0 - 48.0[facility] Comment on above:Performed By: #### CBCDF ####[facility], [place] [address]OWDY Auto mass conc (RBC)30.5 g/dLLow31.0 - 37.0[facility] CenterComment on above:Performed By: #### CBCDF ####[facility], [place] [address]OIL Auto Entitic volume (RBC)82 sLFgznpu68 - 102[facility] CenterComment on above: Performed By: #### CBCDF ####[facility], [place] [address]Ssaasodqd Auto #/vol (Bld)0.53 10*3/uLNormal0.10 - 1.00[facility] CenterComment on above:Performed By: #### CBCDF ####[facility], [place] [address]Xhjxmfnkm/100 WBC Auto (Bld)6.8 %Normal3.0 - 9.0[facility] CenterComment on above: Performed By: #### CBCDF ####[facility], [place] [address]Usygtplbkwt Auto #/vol (Bld)4.73 10*3/uLNormal1.20 - 7.70 [facility] CenterComment on above:Performed By: #### CBCDF ####[facility], [place] [address]Xptuyucbp RBC/100 WBC Ratio (Bld)0.0 /100 WBCNormal0.0-0.0[facility] CenterComment on above:Performed By: #### CBCDF ####[place] [id number], [place] [address]Bfxgwspfr Auto #/vol (Bld)290 10*3/yMKkhbuf818 - 400[facility] CenterComment on above:Performed By: #### CBCDF ####[place] [id number], [place] [address]OIV Auto #/vol (Bld) 4.62 x10E12/LNormal4.10 - 5.20[facility] CenterComment on above: Performed By: #### CBCDF ####[facility], [place] [address]EDG Auto #/vol (Bld)7.8 10*3/uLNormal4.5 - 13.5[facility] CenterComment on above:Performed By: #### CBCDF ####[place] [id number], [place] [address]FNJZXKCAGKQ SCREENon 63-35-3831lFLD Coag time (Bld)29 bTghggz56 - 36[facility] Comment on above:Result Comment: THE APTT IS NO LONGER USED FOR MONITORING UNFRACTIONATED HEPARIN THERAPY. FOR MONITORING HEPARIN THERAPY, USE THE HEPARIN ASSAY.Performed By: #### VTDOH ####[facility], [place] [address]WJM Coag RelTime (PPP)1.2 {INR}High0.9 - 1.1[facility] CenterComment on above:Performed By: #### VTDOH ####[facility], [place] [address]Gwoylkzxcev time (PT) Coag time (PPP) 12.9 sHigh9.8 - 12.7[facility] CenterComment on above:Performed By: #### VTDOH ####[facility] [place] [address] ESR-WESTERGRENon 74-97-3904FDF-WESTERGREN8 mm/hNormal0 - 13[facility] CenterComment on above:Performed By: #### VTDOH ####[facility], [place] [address]RCXjp 50-34-8662ANC58 U/LNormal5 - 20 [facility] CenterComment on above:Performed By: #### GGT ####[facility], [place] [address]DTLPKXAPQT A1Con 02-40-2237Kjqibcucms A1c/Hemoglobin.total mass fraction (Bld)5.6 %NormalSaint Francis Medical CenterComment on above:Result Comment: Diagnosis of Diabetes- Adults Non-Diabetic: < or = 5.6% Increased risk for developing diabetes: 5.7- 6.4% Diagnostic of diabetes: > or = 6.5%. Monitoring of Diabetes Age (y) Therap eutic Goal (%) Adults: >18 <7.0 Pediatrics: 13-18 <7.5 7-12 <8.0 0- 6 7.5-8.5 [place] [employer]. Diabetes Care 33(S1), Nov 2009.Performed By: #### VTDOH ####[facility] [place] [address] HEPATIC FUNCTION PANELon 39-68-9015XUT enzyme act/jnv897 U/IUrsuib18 - 239[facility] CenterComment on above:Performed By: #### HEPFP ####[facility], [place] [address]LCY enzyme act/vol41 U/LHigh3 - 28[facility] CenterComment on above:Result Comment: Patients treated with Sulfasalazine may generate falsely decreased results for ALT.Performed By: #### HEPFP ####[facility], [place] [address]JNS enzyme act/vol25 U/LHigh9 - 24[facility] CenterComment on above:Performed By: #### HEPFP ####[facility], [place] [address]Hgemqdckr mass conc0.3 mg/dLNormal0.0 - 0.9[facility] CenterComment on above:Performed By: #### HEPFP ####[facility], [place] [address]Xpslxxvdz.direct mass conc0.1 mg/dLNormal0.0 - 0.3[facility] CenterComment on above: Performed By: #### HEPFP ####[facility], [place] [address]Ajmmowt mass conc6.7 g/dLNormal6.2 - 7.7[facility] CenterComment on above:Performed By: #### HEPFP ####[facility], [place] [address]FUSV + TIBCon 08-09-2017% SATURATION 13 %Low25 - 45[facility] CenterComment on above:Performed By: #### IRONT ####[facility], [place] [address]Ymdg mass conc53 ug/eQXwytnm42 - 138[facility] CenterComment on above: Performed By: #### IRONT ####[facility], [place] [address]CITN574 ug/tBDlxcld585 - 445[facility] Comment on above:Performed By: #### IRONT ####[facility], [place] [address]ZCQHJJox 80-79-5385Pzbaqb enzyme act/vol17 U/L Normal9 - 82[facility] CenterComment on above:Result Comment: Venipuncture immediately after or during the administration of Metamizole may lead to falsely low results. Testing should be performed immediately prior to Metamizole dosing.Performed By: #### LIPAS ####[facility], [place] [address]PLZBW FUNCTION PANELon 95-46-2310Rogvxtw mass conc 4.3 g/dLNormal3.4 - 5.0[facility] CenterComment on above:Performed By: #### VTDOH ####[facility] [place] [address] Performed By: #### HEPFP ####[facility], [place] [address]Mdhkq gap 3 molar conc13 mmol/ETjyrkq20 - 30[facility] CenterComment on above:Performed By: #### VTDOH ####[facility], [place] [address]Jopumpf mass conc9.5 mg/dLNormal8.5 - 10.7[facility] CenterComment on above:Performed By: #### VTDOH ####[facility], [place] [address]Jiftsmaw molar conc 105 mmol/ILttjbg70 - 107[facility] CenterComment on above:Performed By: #### VTDOH ####[facility], [place] [address]Kxfguwtsbu mass conc0.50 mg/dLNormal0.50 - 1.00[facility] Comment on above:Performed By: #### VTDOH ####[facility], [place] [address]Qjrxbkd mass conc83 mg/qZBflnlw44 - 99[facility] CenterComment on above:Performed By: #### VTDOH ####[facility], [place] [address]MIL2 molar conc (Bld)27 mmol/L Iwybnn99 - 27[facility] CenterComment on above:Performed By: #### VTDOH ####[facility] [place] [address] Phosphate mass conc4.1 mg/dLNormal3.0 - 5.4[facility] CenterComment on above:Result Comment: The performance characteristics of phosphorus testing in heparinized plasma have been validated by the individual laboratory site where testing is performed. Testing on heparinizedplasma is not approved by the FDA; however, such approval is not necessary.Performed By: #### VTDOH ####[facility], [place] [address]Hiknvmjuw molar conc 4.1 mmol/LNormal3.5 - 5.3[facility] CenterComment on above:Performed By: #### VTDOH ####[facility] [facility], [place] [address]Kbejvc molar aljc203 mmol/TAmflbx397 - 145[facility] Comment on above:Performed By: #### VTDOH ####[place] [id number], [place] [address]Vijc nitrogen mass conc11 mg/dLNormal6 - 23[facility] CenterComment on above:Performed By: #### VTDOH ####[place] [id number] [facility], [place] [address]WVOODVNAS,FREEon 07-59-4822ZBDJGRLPO,FREE1.08 ng/dLNormal0.78 - 1.48[facility] Comment on above:Result Comment: Thyroxine Free testing is performed using different testing methodology at [facility] than at other [facility]. Direct result comparisons should only be made within the same method.. Patients receiving more than 5 mg/day of biotin may have interference in test results. A sample should be taken no sooner than eight hours after previous dose. Contact [phone] additional information.Performed By: #### T4FRE ####[place] [id number] [place], [place] [address]YWLmz 02-89-8600Ypbbmhnvwjj Qn1.71 m[IU]/LNormal0.44 - 3.98[facility] Comment on above:Result Comment: TSH testing is performed using different testing methodology at [facility] than at other [facility]. Direct result comparisons should only be made within the same method.. Patients receiving more than 5 mg/day of biotin may have interference in test results. A sample should be taken no sooner than eight hours after previous dose. Contact [phone] for additional information.Performed By: #### TSH2 ####[facility], [place] [address]NJYZKFI D, 25-HYDROXYon 84-65-3116AHNIBES D, 25-WQYYQME73 ng/mLAbnoPeak View Behavioral Health Comment on above:Result Comment: .DEFICIENCY: < 20 NG/MLINSUFFICIENCY: 20-29 NG/MLOPTIMUM LEVEL: 30-80 NG/MLPOSSIBLE TOXICITY: > 80 NG/MLTHIS ASSAY ACCURATELY QUANTIFIES THE SUM OFVITAMIN D3, 25-HYDROXY AND VITD2,25-HYDROXY. Performed By: #### VTDOH ####[facility] [place] [address] Vital Signs Date TimeVital SignValuePerforming DiikfctmuPntnqgag55-05-7456 20:30-0500Heart rate51 /minCentrastate Healthcare Systemit [facility]02-19-2025 20:30-0500 Respiratory rate12 /[facility]2025 20:30-7963DwT7% (BldA) [Mass fraction]98 %[facility]02-19-2025 19:30-0500Diastolic blood lmlnzlhe128 mm[Hg][facility]02-19-2025 19:30-0500Heart rate48 /min[facility]02-19-2025 19:30-0500Mean blood ttirfkdg139 mm[Hg][facility]02-19-2025 19:30-0500 Respiratory rate13 /min[facility]02-19-2025 19:30-8137LaH3% (BldA) [Mass fraction]98 %[facility]02-19-2025 19:30-0500Systolic blood mmwewjgp214 mm[Hg][facility]02-19-2025 17:53-0500Body btebfmqjzzb67.14 [degF][facility]02-19-2025 17:53-0500Diastolic blood bwbtqurt66 mm[Hg][facility]02-19-2025 17:53-0500Heart rate64 /min[facility]02-19-2025 17:53-0500Respiratory rate20 /min[facility] 01-16-2025 17:53-8141EcH4% (BldA) [Mass fraction]100 %[facility]02-19-2025 17:53-0500Systolic blood fyizqvad191 mm[Hg][facility]12-02-2024 00:01-0500Diastolic blood vjpvwrib63 mm[Hg][employer] Work Phone: [phone] [place], [place] 1369312-02-2024 00:01-0500 Heart rate72 /[facility] Work Phone: [phone] [place], [place] 1369312-02-2024 00:01-0500 Respiratory rate16 /[employer] Work Phone: [facility]12-02-2024 00:01-0500 SaO2% (BldA) [Mass fraction]99 %[employer] Work Phone: [facility]12-02-2024 00:01-0500 Systolic blood hdkevqbn785 mm[Hg][employer] Work Phone: [phone]-[facility] [place][note 2]3[facility]12-01-2024 18:07-0500 Body gfheue384.48 cmSGliAffidabili.it Work Phone: [phone])554-[facility] [place][note 2][facility]12-01-2024 18:07-0500 Body dvkzxwrhcoh90.6 [degF]Services [employer] Work Phone: 1(695)533-[address] [place], [place] 1369312-01-2024 18:07-0500 Body akisqo82.85 kgSerwellspan health [facility]in Work Phone: 1([phone])09[address]09-06-2024 23:10-0400 Diastolic blood einbcqob01 mm[Hg]Services [facility] [employer] Work Phone: 1(635)8[address]04 [address]09-06-2024 23:10-0400 Heart rate95 /[facility] [employer] Work Phone: 1(404)[address] [place], [place] 5801609-06-2024 23:10-0400 Respiratory rate18 /[facility] [employer] Work Phone: 1(524)[address] [place], [place] 5801609-06-2024 23:10-0400 SaO2% (BldA) [Mass fraction]99 %Services [employer] Work Phone: 1(811)[address] [place], [place] 5801609-06-2024 23:10-0400 Systolic blood syxtaahq160 mm[Hg]Services [facility] [employer] Work Phone: 1(011)39[address]09-06-2024 20:35-0400 Body spmpok058.48 [facility] Work Phone: 1(368)[address] [place], [place] 5801609-06-2024 20:35-0400 Body islvmubbgob74.1 [degF]Services [facility] [employer] Work Phone: 1([phone])11[address]09-06-2024 20:35-0400 Body .71 kgSerwellspan health Docin Work Phone: 1(039)174-[address] [place], [place] 1369309-02-2024 22:55-0400 Diastolic blood dtczjruc53 mm[Hg]Cresencio Abel [facility]09-02-2024 22:55-0400Heart rate50 /minCresencio Abel [facility]09-02-2024 22:55-0400Mean blood jftjmtqy34 mm[Hg]Cresencio Abel [facility]09-02-2024 22:55-0400 Respiratory rate16 /minTim Colten [facility]09-02-2024 22:55-4053BfN1% (BldA) [Mass fraction]98 %Cresencio Abel [address] [place], [place] 7446709-02-2024 22:55-0400 Systolic blood bgodwhsu916 mm[Hg]Cresencio Abel [address]09-02-2024 19:28-0400Body mbwdpvgnapj29.06 [degF]Cresencio Abel [address]09-02-2024 19:28-0400 Diastolic blood mm[Hg]Cresencio Abel [address]09-02-2024 19:28-0400Heart rate55 /minTim Colten [address] [place], [place] 7446709-02-2024 19:28-0400 Respiratory rate16 /minTim Colten [facility]09-02-2024 19:28-0142BtY7% (BldA) [Mass fraction]97 %Cresencio Abel [facility]09-02-2024 19:28-0400 Systolic blood hguzpzuu950 mm[Hg]Cresencio Abel [address] [place], [place] 7446704-22-2024 00:10-0400 Diastolic blood tyrminin24 mm[Hg]Services [facility] Work Phone: [facility]04-22-2024 00:10-0400 Heart vpax323 /[facility] Work Phone: [facility]04-22-2024 00:10-0400 Respiratory rate18 /[facility] Work Phone: [facility]04-22-2024 00:10-0400 SaO2% (BldA) [Mass fraction]100 %Services [facility] Work Phone: [facility]04-22-2024 00:10-0400 Systolic blood mm[Hg]Services [facility] Work Phone: [facility]04-21-2024 22:03-0400 Body mgjitt120.02 cmServices [facility] Work Phone: [facility]04-21-2024 22:03-0400 Body hlvrckgeciw78.3 [degF]Services [facility] Work Phone: [facility]04-21-2024 22:03-0400 Body .2 kgServices [facility] Work Phone: [facility]04-18-2024 13:43-0400 Diastolic blood ccorcyrv79 mm[Hg][facility] 03-15-2024 13:43-0400Heart rate51 /[facility]-18-2024 13:43-0400Mean blood kpgrnszi666 mm[Hg][facility]04-18-2024 13:43-0400Respiratory rate16 /[facility]18-2024 13:43-1525AjP1% (BldA) [Mass fraction] 100 %[facility]04-18-2024 13:43-0400Systolic blood gopsiruf529 mm[Hg][facility]04-18-2024 12:01-0400Diastolic blood mm[Hg][facility]04-18-2024 12:01-0400Heart rate52 /[facility]04-18-2024 12:01-0400Mean blood jpszeaij650 mm[Hg][facility]04-18-2024 12:01-0292YcL8% (BldA) [Mass fraction]100 %[facility]04-18-2024 12:01-0400Systolic blood pressure 148 mm[Hg][facility]04-18-2024 10:35-0400Body lhvkzjvfaho00.52 [degF][facility]04-18-2024 10:35-0400Diastolic blood dorberuv92 mm[Hg][facility]04-18-2024 10:35-0400Heart rate60 /[facility]04-18-2024 10:35-0400Respiratory rate18 /[facility]04-18-2024 10:35-9651MlS3% (BldA) [Mass fraction]98 %[facility]04-18-2024 10:35-0400Systolic blood pressure 143 mm[Hg][facility]04-16-2024 22:00-0400 Diastolic blood jxdvjamu444 mm[Hg]Femi Roman [address] [place], [place] 7446704-16-2024 22:00-0400Heart rate53 /minFemi Roman [address] [place], [place] 7446704-16-2024 22:00-0400Mean blood yhjrcxoc105 mm[Hg]Femi Roman [address] [place], [place] 7446704-16-2024 22:00-7628RwP3% (BldA) [Mass fraction]100 %Femi Roman [address] [place], [place] 7446704-16-2024 22:00-0400 Systolic blood ddvgvzyp816 mm[Hg]Femi Jesise [address] [place], [place] 7446704-16-2024 21:00-0400 Diastolic blood bwjizgqe695 mm[Hg]Femi Jessie [address] [place], [place] 7446704-16-2024 21:00-0400Heart rate93 /minFemi Roman [address] [place], [place] 7446704-16-2024 21:00-0400Mean blood wlerndme959 mm[Hg]Femi Roman [address] [place], [place] 7446704-16-2024 21:00-0400 Respiratory rate21 /minJomarylu Roman [address] [place], [place] 7446704-16-2024 21:00-7435KkC4% (BldA) [Mass fraction]98 %Femi Roman [address] [place], [place] 7446704-16-2024 21:00-0400 Systolic blood dwibdzcy769 mm[Hg]Femi Roman [address] [place], [place] 7446704-16-2024 20:00-0400 Diastolic blood mm[Hg]Femi Roman [address] [place], [place] 7446704-16-2024 20:00-0400Heart rate50 /Tiffany Roman [address] [place], [place] 7446704-16-2024 20:00-0400Mean blood mrhyjfgz115 mm[Hg]Femi Roman [address] [place], [place] 7446704-16-2024 20:00-0400 Systolic blood vdbulnrz631 mm[Hg]Femi Roman [address] [place], [place] 7446704-16-2024 19:38-0400 Respiratory rate14 /minFemi Roman [address] [place], [place] 7446704-16-2024 18:36-0400 Respiratory rate18 /minJomarylu Jessie [address] [place], [place] 7446704-16-2024 17:51-0400Body deholpfxjmm78.24 [degF]Femi Roman [address] [place], [place] 7446704-16-2024 17:36-0400Body fgmyhirhnwx56.24 [degF]Femi Roman [facility]04-16-2024 17:36-0400Heart rate61 /Tiffany Roman [facility]04-16-2024 17:36-0400 Respiratory rate18 /Tiffany Roman [facility]09-03-2023 18:09-0400Body cqlruo980.48 cmSGliAffidabili.it Work Phone: [facility]09-03-2023 18:09-0400 Body uqyakqyiodt31.6 [degF]Services [facility] Work Phone: 1(096)212-[facility] [place][note 2][facility]09-03-2023 18:09-0400 Body uvwqhf32 kgSerwellspan health Docin Work Phone: 1(521)459-[facility] [place][note 2]9[facility]09-03-2023 18:09-0400 Diastolic blood sxqhsyej600 mm[Hg]Services [employer] Work Phone: 1(036)792-[facility] [place][note 2]8[facility]09-03-2023 18:09-0400 Heart rate87 /[employer] Work Phone: 1(252)154-[facility] [place][note 2]5[facility]09-03-2023 18:09-0400 Respiratory rate18 /[employer] Work Phone: 1(145)423-[facility] [place][note 2]7[facility]09-03-2023 18:09-0400 SaO2% (BldA) [Mass fraction]98 %Services [employer] Work Phone: 1(136)421-[facility] [place][note 2]6[facility]09-03-2023 18:09-0400 Systolic blood aqdayimm653 mm[Hg]Services [employer] Work Phone: 1(395)539-[facility] [place][note 2]9[facility]06-28-2023 13:11-0400 Diastolic blood mm[Hg]Services [facility] Work Phone: [facility]06-28-2023 13:11-0400 Heart rate60 /[employer] Work Phone: 1(424)464-[facility] [place][note 2]1[facility]06-28-2023 13:11-0400 Respiratory rate16 /[facility]Svass[facility] center [employer] Phone: 1(611)781-[facility] [place][note 2]1[facility]06-28-2023 13:11-0400 SaO2% (BldA) [Mass fraction]97 %Services [employer] Phone: [facility]06-28-2023 13:11-0400 Systolic blood ldytojax037 mm[Hg]Services [employer] Phone: 1(015)670-[facility] [place][note 2]7[facility]06-28-2023 11:56-0400 Inhaled oxygen flow rate6 L/[facility] [employer] Phone: 1(382)491-[facility] [place][note 2]5[facility]06-28-2023 11:54-0400 Body dsluldwfguf46.2 [degF]Services [employer] Phone: 1(770)289-[facility] [place][note 2]5[facility]06-28-2023 09:39-0400 Body whsuyv069.02 cmSvassar brothers medical center [employer] Phone: 1(252)825-[facility] [place][note 2]1[facility]06-28-2023 09:39-0400 Body mass index (BMI) [Percentile] Per age and sex96.6 %Services [facility] [employer] Phone: [phone]-[facility] [place][note 2]8[facility]06-28-2023 09:39-0400 Body mass index (BMI) [Ratio]33.6 kg/k6Rtmjvazj [employer] Phone: [facility]06-28-2023 09:39-0400 Body kecawq34.18 kgSerwellspan health [employer] Phone: [facility]06-26-2023 08:00-0400 Body irdjcx990.48 cmThomas Olexa Other [employer] Other 06-26-2023 08:00-0400Body mass index (BMI) [Ratio] 34.75 kg/m7Umrmiw Olexa Other [employer] Other 06-26-2023 08:00-0400Body hiinkx59.18 kgThomas Olexa Other [place] [employer] Other 02-10-2023 14:08-0500Body .48 cmServices [facility] Work Phone: 1(895)412-[facility]02-10-2023 12:34-0500 Body mvtuzbjmkat31.1 [degF]Services [facility] [employer] Work Phone: 1(258)570-[address] [place], [place] 2905302-10-2023 12:34-0500 Diastolic blood xbsioafc81 mm[Hg]Services [facility] [employer] Work Phone: 1(936)62548 [address]02-10-2023 12:34-0500 Heart rate75 /[facility] [employer] Work Phone: 1(959)583-[address] [place], [place] 2905302-10-2023 12:34-0500 SaO2% (BldA) [Mass fraction]100 %Services [facility] [employer] Work Phone: 1(831)022-[address] [place], [place] 2905302-10-2023 12:34-0500 Systolic blood illasspf708 mm[Hg]Services [facility] [employer] Work Phone: 1(056)240-[address] [place], [place] 2905302-10-2023 11:57-0500 Respiratory rate18 /[facility] [employer] Work Phone: 1(422)264-[address] [place], [place] 2905302-10-2023 06:00-0500 Body rnywrj66.2 kgSersan ramon regional medical centeres [facility] [employer] Work Phone: 1(742)903-[address] [place], [place] 2905302-09-2023 18:29-0500 Diastolic blood tvgkjolh57 mm[Hg]Services [facility] [employer] Work Phone: 1(311)509-[address] [place], [place] 2905302-09-2023 18:29-0500 Heart rate64 /[facility] [employer] Work Phone: 1(590)677-[address] [place], [place] 2905302-09-2023 18:29-0500 Respiratory rate16 /[facility] Hospital[facility] [employer] Work Phone: 1(702)549-[address] [place], [place] 2905302-09-2023 18:29-0500 SaO2% (BldA) [Mass fraction]98 %Services [facility] Work Phone: 1(817)78048 [address]02-09-2023 18:29-0500 Systolic blood zyvdusdy221 mm[Hg]Services [facility] [employer] Work Phone: 1(786)[address] [place], [place] 4314202-09-2023 11:12-0500 Body .48 [facility] Work Phone: 1(559)[address] [place], [place] 4314202-09-2023 11:12-0500 Body lxlnskmjobs46 [degF]Services [facility] [employer] Work Phone: 1(340)66348 [address]02-09-2023 11:12-0500 Body sodpsx83.11 kgSerChildren's Hospital of [facility] [employer] Work Phone: 1(019)[address] [place], [place] 4314202-05-2023 04:00-0500 Heart rate62 /[employer] Work Phone: 1(208)[address] [place], [place] 4314202-05-2023 04:00-0500 Respiratory rate18 /[employer] Work Phone: 1(305)[address] [place], [place] 4314202-05-2023 04:00-0500 SaO2% (BldA) [Mass fraction]100 %Services [facility] [employer] Work Phone: 1(106)[address] [place], [place] 4314202-05-2023 02:37-0500 Diastolic blood xstgxuey64 mm[Hg]Services [facility] [employer] Work Phone: 1(412)[address] [place], [place] 4314202-05-2023 02:37-0500 Systolic blood pqjqeikf427 mm[Hg]Services [facility] [employer] Work Phone: 1(298)[address] [place], [place] 4314202-05-2023 01:14-[address] [facility] [employer] Work Phone: 1(598)[address]02-05-2023 01:14-0500 Body luivfdntfpw87 [degF]Services [facility] [employer] Work Phone: 1(749)36[address]02-05-2023 01:14-0500 Body yqsoca02.11 kgSersan ramon [facility] centerR[facility] [employer] Work Phone: 1(332)125-[facility]02-03-2023 12:11-0500 Heart rate70 /[facility] [employer] Work Phone: 1(615)63048 [address]02-03-2023 12:08-0500 Body fukheg840.48 [facility] [employer] Work Phone: 1(458)06648 [address]02-03-2023 12:08-0500 Body bmpqbpftban34.7 [degF]Services [facility] [employer] Work Phone: 1(473)59748 [address]02-03-2023 12:08-0500 Body ndzjaj41 kg[facility] [employer] Work Phone: 1(859)99348 [address]02-03-2023 12:08-0500 Diastolic blood pntmttuk35 mm[Hg]Services [facility] [employer] Work Phone: 1(822)84548 [address]02-03-2023 12:08-0500 Respiratory rate18 /[facility] [employer] Work Phone: 1(065)74948 [address]02-03-2023 12:08-0500 SaO2% (BldA) [Mass fraction]99 %Services [facility] [employer] Work Phone: 1(908)[address] [place], [place] 4314202-03-2023 12:08-0500 Systolic blood omkiflmh140 mm[Hg]Services [facility] [employer] Work Phone: 1(217)[address] [place], [place] 4314212-13-2022 15:15-0500 Body .48 [facility] [employer] Work Phone: 1(828)99748 [address]12-13-2022 15:15-0500 Body jabsyjaohcq57.4 [degF]Services [facility] [employer] Work Phone: 1(711)75748 [address]12-13-2022 15:15-0500 Body cngotq98.64 kg[facility] [employer] Work Phone: 1(100)32548 [address]12-13-2022 15:15-0500 Diastolic blood pbpdnhik89 mm[Hg]Services [facility] [employer] Work Phone: 1(419)[address] [place], [place] 4314212-13-2022 15:15-0500 Heart rate95 /minSGliAffidabili.it Senior Work Phone: 1(604)[address] [place], [place] 4314212-13-2022 15:15-0500 Respiratory rate16 /minSGliAffidabili[employer]it Senior Work Phone: 1(239)[address] [place], [place] 4314212-13-2022 15:15-0500 SaO2% (BldA) [Mass fraction]100 %Services [facility] [employer] Work Phone: 1419)[address] [place], [place] 4314212-13-2022 15:15-0500 Systolic blood mm[Hg]Services [facility] [employer] Work Phone: 1(524)[address] [place], [place] 4314212-11-2022 13:40-0500 Diastolic blood nslobzzn00 mm[Hg]Services [facility] [employer] Work Phone: 1(719)[address] [place], [place] 4314212-11-2022 13:40-0500 Heart rate68 /minSMonetsu Work Phone: 1419)[address] [place], [place] 4314212-11-2022 13:40-0500 Respiratory rate16 /minSRemergethomas hospital [facility] Work Phone: 1(641)[address] [place], [place] 4314212-11-2022 13:40-0500 SaO2% (BldA) [Mass fraction]100 %Services [facility] [employer] Work Phone: 1(811)[address] [place], [place] 4314212-11-2022 13:40-0500 Systolic blood onbvivlu658 mm[Hg]Services [facility] [employer] Work Phone: 1(101)[address] [place], [place] 4314212-11-2022 11:05-0500 Body apjxnelruwn29.2 [degF]Services [facility] [employer] Work Phone: 1(616)[address] [place], [place] 4314212-11-2022 11:04-0500 Body kegkuf317.75 cmServices [facility] Work Phone: 1(389)[address] [place], [place] 4314212-11-2022 11:04-0500 Body rkhejv48 kgServices [facility] Work Phone: 1(373)[address] [place], [place] 4314212-06-2022 09:53-0500 Diastolic blood twtqacjo06 mm[Hg]Services [facility] [employer] Work Phone: 1(029)73748 [address]12-06-2022 09:53-0500 Heart rate50 /minSMonetsu Work Phone: 1(762)10248 [address]12-06-2022 09:53-0500 Respiratory rate18 /minSvassar [facility] medical center [facility] Work Phone: 1(356)64448 [address]12-06-2022 09:53-0500 SaO2% (BldA) [Mass fraction]98 %Services [facility] [employer] Work Phone: 1(239)59348 [address]12-06-2022 09:53-0500 Systolic blood psmnhfou658 mm[Hg]Services [facility] [employer] Work Phone: 1(479)57048 [address]12-06-2022 03:00-0500 Body lblahw442.48 [facility]SSh[facility] [employer] Work Phone: 1(635)[address] [place], [place] 4314212-06-2022 03:00-0500 Body mohxesibjhx72.4 [degF]Services [facility] [employer] Work Phone: 1(590)69848 [address]12-06-2022 03:00-0500 Body stcuzy18 kgSerGardner Sanitarium [employer] Work Phone: 1(723)06648 [address]12-04-2022 10:05-0500 Diastolic blood yyhqsskp60 mm[Hg]Services [facility] [employer] Work Phone: 1(085)03448 [address]12-04-2022 10:05-0500 Heart rate59 /minSvassar [facility] medical center [facility] Work Phone: 1(988)415-[address] [place], [place] 2905312-04-2022 10:05-0500 Respiratory rate18 /[facility] Work Phone: 1(526)23148 [address]12-04-2022 10:05-0500 SaO2% (BldA) [Mass fraction]98 %Services [facility] [employer] Work Phone: 1(417)72948 [address]12-04-2022 10:05-0500 Systolic blood sianndbj318 mm[Hg]Services [facility] [employer] Work Phone: 1(061)447-[address] [place], [place] 2905312-04-2022 08:50-0500 Body .48 [facility] [employer] Work Phone: 1(996)30848 [address]12-04-2022 08:50-0500 Body bietcdurmhn82.2 [degF]Services [facility] [employer] Work Phone: 1(579)35548 [address]12-04-2022 08:50-0500 Body vneyub98.91 kgSerChildren's Hospital [facility] [employer] Work Phone: 1(537)11448 [address]12-02-2022 12:01-0500 Body shudla493.48 [facility] [employer] Work Phone: 1(915)51448 [address]12-02-2022 12:01-0500 Body caktzkszsls76.8 [degF]Services [facility] [employer] Work Phone: 1(937)551-[address] [place], [place] 2905312-02-2022 12:01-0500 Body kgSerChildren's Hospital [facility] [employer] Work Phone: 1(601)97348 [address]12-02-2022 12:01-0500 Diastolic blood eazxcfly43 mm[Hg]Services [facility] [employer] Work Phone: 1(280)67448 [address]12-02-2022 12:01-0500 Heart rate60 /[facility] [employer] Work Phone: 1(778)801-[address] [place], [place] 2905312-02-2022 12:01-0500 Respiratory rate18 /[facility] [employer] Work Phone: 1(731)719-[address] [place], [place] 2905312-02-2022 12:01-0500 SaO2% (BldA) [Mass fraction]99 %Services [facility] [employer] Work Phone: 1(638)240-[address] [place], [place] 2905312-02-2022 12:01-0500 Systolic blood nbucxrtj110 mm[Hg]Services [facility] [employer] Work Phone: 1(809)25048 [address]09-25-2022 12:00-0400 Body zldkznxnhdo21 [degF]Services [employer] Phone: 1(203)[address]09-25-2022 12:00-0400 Diastolic blood psvphuvd81 mm[Hg]Services [employer] Work Phone: [address] [place], [place] 5801609-25-2022 12:00-0400 Heart rate80 /[employer] Work Phone: [address] [place], [place] 5801609-25-2022 12:00-0400 Respiratory rate18 /minSGliAffidabili.it Work Phone: 1419)[address] [place], [place] 5801609-25-2022 12:00-0400 SaO2% (BldA) [Mass fraction]95 %Services [employer] Work Phone: [address] [place], [place] 5801609-25-2022 12:00-0400 Systolic blood glnacytk555 mm[Hg]Services [employer] Work Phone: [address] [place], [place] 5801609-25-2022 05:50-0400 Body mgywlo50.5 kgServic [employer] Work Phone: [address] [place], [place] 5801609-24-2022 11:27-0400 Body vayhuq422.48 cmServices [employer] Work Phone: 1(903)[address] [place], [place] 5801609-23-2022 16:34-0400 Diastolic blood xykkzuwo96 mm[Hg]Services [employer] Work Phone: [address] [place], [place] 5801609-23-2022 16:34-0400 Heart rate68 /[employer] Work Phone: [phone])46504 [address]09-23-2022 16:34-0400 Respiratory rate20 /minSGliAffidabili.it Work Phone: [address] [place], [place] 5801609-23-2022 16:34-0400 SaO2% (BldA) [Mass fraction]96 %Services [employer] Work Phone: 1(672)58704 [address]09-23-2022 16:34-0400 Systolic blood auowfqwy012 mm[Hg]Services [employer] Work Phone: 1(675)65704 [address]09-23-2022 11:58-0400 Body iwohqg899.48 [employer] Work Phone: 1(007)77804 [address]09-23-2022 11:58-0400 Body aigteyiuikh80.9 [degF]Services [employer] Work Phone: 1(720)44204 [address]09-23-2022 11:58-0400 Body hhfgof17.37 kgSer[employer] Work Phone: 1(287)52604 [address]09-23-2022 01:00-0400 Body ngsufpxdpug45.9 [degF]Services [employer] Work Phone: 1(750)72804 [address]09-23-2022 01:00-0400 Diastolic blood frblvafo66 mm[Hg]Services [employer] Work Phone: 1(875)50804 [address]09-23-2022 01:00-0400 Heart rate53 /[employer] Work Phone: 1(056)62304 [address]09-23-2022 01:00-0400 Respiratory rate16 /[employer] Work Phone: 1(033)12204 [address]09-23-2022 01:00-0400 SaO2% (BldA) [Mass fraction]97 %Services [employer] Phone: 1(199)51304 [address]09-23-2022 01:00-0400 Systolic blood ubgdvxck289 mm[Hg]Services [employer] Work Phone: 1(277)[address]09-22-2022 18:57-0400 Body uxrvfh080.48 cmSGliAffidabili.it Work Phone: 1(046)37604 [address]09-22-2022 18:57-0400 Body jrjfzo37.37 kgSer[employer] Work Phone: 1(250)33604 [address]09-22-2022 14:00-0400 Diastolic blood obdobxkl82 mm[Hg]Services [employer] Work Phone: 1(252)91804 [address]09-22-2022 14:00-0400 Heart rate67 /[employer] Work Phone: 1(716)748-[address] [place], [place] 1369309-22-2022 14:00-0400 Respiratory rate20 /[facility]Skettering health miamisburgMeteor Solutions Work Phone: 1(045)56704 [address]09-22-2022 14:00-0400 SaO2% (BldA) [Mass fraction]99 %Services [employer] Work Phone: 1(225)55604 [address]09-22-2022 14:00-0400 Systolic blood izwwnluf425 mm[Hg]Services [employer] Work Phone: 1(160)[address]09-22-2022 00:40-0400 Body umovjj113.48 cmSvassar brothers medical center [employer] Work Phone: 1(256)50204 [address]09-22-2022 00:40-0400 Body ibzjfkdlsjl88.8 [degF]Services [employer] Work Phone: 1(375)47304 [address]09-22-2022 00:40-0400 Body ufghim57.11 kgSerwellspan health [employer] Work Phone: 1(195)69604 [address]09-21-2022 15:28-0400 Body aqgzvjpofbi67.8 [degF]Services [employer] Work Phone: [phone])[address]09-21-2022 15:28-0400 Diastolic blood gthxyfqh23 mm[Hg]Services [facility] Work Phone: [phone])76004 [address]09-21-2022 15:28-0400 Heart rate54 /[facility] Docin Work Phone: [phone])80204 [address]09-21-2022 15:28-0400 Respiratory rate20 /[facility] Docin Work Phone: [phone])73[address]09-21-2022 15:28-0400 SaO2% (BldA) [Mass fraction]100 %Services [facility] Work Phone: 1([phone])7[address]09-21-2022 15:28-0400 Systolic blood ukbvrfwk279 mm[Hg]Services [facility] Work Phone: 1(419)[address] [place], [place] 5801609-21-2022 12:26-0400 Body jxgusk340.48 [facility]GliAffidabili.it Work Phone: 1(022)[address] [place], [place] 5801609-21-2022 12:26-0400 Body rjjcio49.11 kgSerwellspan health Stublisher Phone: 1(777)[address] [place], [place] 5801607-13-2022 10:25-0400 Diastolic blood mxphpsit86 mm[Hg]Services [facility] Work Phone: 1(341)[address] [place], [place] 5801607-13-2022 10:25-0400 Heart rate83 /[facility] Phone: 1(481)[address] [place], [place] 5801607-13-2022 10:25-0400 Respiratory rate20 /[facility] [employer] Phone: 1(118)[address] [place], [place] 5801607-13-2022 10:25-0400 SaO2% (BldA) [Mass fraction]98 %Services [employer] Phone: 1(214)[address] [place], [place] 5801607-13-2022 10:25-0400 Systolic blood mm[Hg]Services [employer] Phone: 1(593)[address] [place], [place] 5801607-13-2022 08:46-0400 Body vpbpyp169.48 [facility] HealthRem[facility]omas [facility] St[facility]isher Phone: 1(128)[address] [place], [place] 5801607-13-2022 08:46-0400 Body mass index (BMI) [Percentile] Per age and sex96.2 %Services [employer] Phone: [phone])89704 [address]07-13-2022 08:46-0400 Body mass index (BMI) [Ratio]32 kg/f0Hsejyhnr St[employer]isher Phone: 1(508)[address] [place], [place] 5801607-13-2022 08:46-0400 Body ugmhvxmctub28.4 [degF]Services [employer] Phone: 1(079)[address] [place], [place] 5801607-13-2022 08:46-0400 Body nxpdro08.37 kgSerwellspan health Docin Work Phone: 1(777)[address] [place], [place] 5801606-19-2022 13:52-0400 Diastolic blood uqxyrrqj62 mm[Hg]Services [facility] Work Phone: 1(311)157-[address] [place], [place] 1369306-19-2022 13:52-0400 Heart rate66 /minServMeteor Solutions Work Phone: 1(876)93604 [address]06-19-2022 13:52-0400 Respiratory rate18 /minServices Docin Work Phone: 1(878)80504 [address]06-19-2022 13:52-0400 SaO2% (BldA) [Mass fraction]100 %Services [facility] Work Phone: 1(406)57204 [address]06-19-2022 13:52-0400 Systolic blood cpmpzhgy692 mm[Hg]Services [employer] Phone: 1(917)97304 [address]06-19-2022 11:54-0400 Body dctuul338.48 cmSvassar [facility] Docin Work Phone: 1([phone])65204 [address]06-19-2022 11:54-0400 Body mass index (BMI) [Percentile] Per age and sex95.5 %Services [employer] Phone: [phone])40704 [address]06-19-2022 11:54-0400 Body mass index (BMI) [Ratio]31.1 kg/k0Gndfnvwa St[employer]isher Phone: 1(653)548-[address] [place], [place] 1369306-19-2022 11:54-0400 Body wbqrxrviifs93.4 [degF]Services [facility] Work Phone: 1(808)83904 [address]06-19-2022 11:54-0400 Body .11 kgSerwellspan health Stublisher Phone: 1(591)72504 [address]06-18-2022 15:30-0400 Diastolic blood tjuhxlvq30 mm[Hg]Services [employer] Phone: 1(547)12604 [address]06-18-2022 15:30-0400 Heart rate52 /minServMeteor Solutions Work Phone: 1(545)375-[address] [place], [place] 1369306-18-2022 15:30-0400 Respiratory rate14 /minServices Docin Work Phone: 1(132)307-[address] [place], [place] 1369306-18-2022 15:30-0400 SaO2% (BldA) [Mass fraction]99 %Services [facility] Work Phone: 1(845)32004 [address]06-18-2022 15:30-0400 Systolic blood vnudbzou838 mm[Hg]Services [facility] Work Phone: [phone])31604 [address]06-18-2022 12:28-0400 Body phohyx504.48 cmSvassar brothers [facility] center Docin Work Phone: 1(342)77204 [address]06-18-2022 12:28-0400 Body mass index (BMI) [Percentile] Per age and sex95.5 %Services [facility] Work Phone: 1(952)07304 [address]06-18-2022 12:28-0400 Body mass index (BMI) [Ratio]31 kg/e8Yirmltpm Docin Work Phone: 1(907)120-[address] [place], [place] 1369306-18-2022 12:28-0400 Body edmdhgxqgbs70.1 [degF]Services [facility] [employer] Work Phone: 1(200)96504 [address]06-18-2022 12:28-0400 Body fuzzlz01 kgSerwellspan health Docin Work Phone: 1(757)34904 [address]06-17-2022 22:56-0400 Body ryrivusouph00.1 [degF]Services [facility] [employer] Work Phone: 1(045)17804 [address]06-17-2022 22:56-0400 Diastolic blood zlayamrz73 mm[Hg]Services [facility] [employer] Work Phone: 1(139)32504 [address]06-17-2022 22:56-0400 Heart rate18 /minSkettering health miamisburgMeteor Solutions Work Phone: 1(744)66804 [address]06-17-2022 22:56-0400 Respiratory rate18 /minSkettering health miamisburgMeteor Solutions Work Phone: 1(840)459-[address] [place], [place] 1369306-17-2022 22:56-0400 SaO2% (BldA) [Mass fraction]94 %Services [employer] Phone: 1(900)270-[address] [place], [place] 1369306-17-2022 22:56-0400 Systolic blood gofjkpca685 mm[Hg]Services [employer] Phone: 1([phone])82804 [address]06-17-2022 02:18-0400 Body rvdqak489.48 cmSkettering health miamisburgices Docin Work Phone: 1(042)818-[address] [place], [place] 1369306-17-2022 02:18-0400 Body mass index (BMI) [Percentile] Per age and sex95.5 %Services [employer] Phone: 1(856)464-[address] [place], [place] 1369306-17-2022 02:18-0400 Body mass index (BMI) [Ratio]31.1 kg/l4Tfbemmrf St[employer]isher Phone: 1(515)08004 [address]06-17-2022 02:18-0400 Body spyoqlhyoxq06.9 [degF]Services [employer] Phone: 1(386)64104 [address]06-17-2022 02:18-0400 Body xiihxb79.11 kgSerwellspan health Stublisher Phone: 1(886)904-[address] [place], [place] 1369306-17-2022 02:18-0400 Diastolic blood uhgoboek94 mm[Hg]Services [employer] Phone: 1(766)702-[address] [place], [place] 1369306-17-2022 02:18-0400 Heart rate54 /minSkettering health miamisburgMeteor Solutions Work Phone: 1(343)921-[address] [place], [place] 1369306-17-2022 02:18-0400 Respiratory rate18 /minSkettering health miamisburgMeteor Solutions Work Phone: 1(036)391-[address] [place], [place] 1369306-17-2022 02:18-0400 SaO2% (BldA) [Mass fraction]98 %Services [employer] Phone: 1(096)084-[facility][note 2]8[facility]06-17-2022 02:18-0400 Systolic blood wfvfptun299 mm[Hg]Services [employer] Phone: 1(979)572-[address] [place], [place] 1369306-16-2022 12:09-0400 Heart rate72 /[facility] [employer] Phone: 1(035)521-[address] [place], [place] 1369306-16-2022 12:09-0400 Respiratory rate18 /[facility] [employer] Phone: 1(568)[address] [place], [place] 5801606-16-2022 12:09-0400 SaO2% (BldA) [Mass fraction]98 %Services [facility] [employer] Phone: 1([phone])59104 [address]06-16-2022 10:32-0400 Body lojuds537.21 [facility]Gal[facility] Phone: [phone])04904 [address]06-16-2022 10:32-0400 Body mass index (BMI) [Percentile] Per age and sex95.9 %Services [facility] [employer] Phone: [phone])39404 [address]06-16-2022 10:32-0400 Body mass index (BMI) [Ratio]31.6 kg/u0Awpyilvl St[employer]isher Phone: [phone])18404 [address]06-16-2022 10:32-0400 Body xbzscbbovdz78.1 [degF]Services [facility] [employer] Phone: [phone]06-16-2022 10:32-0400 Body bbuqdc43.11 kgSerChildren's Hospital of The [facility]'s [facility] [employer] [facility] Phone: [phone])03304 [address]06-16-2022 10:32-0400 Diastolic blood eiqshejo86 mm[Hg]Services [facility] [employer] Phone: [phone] [address]06-16-2022 10:32-0400 Systolic blood ebwtfoeg826 mm[Hg]Services [facility] [employer] Phone: [phone] [place] [address] Encounters Encounter DateEncounter TypeCare ProviderFacilityStart: 08-28-2025 End: 91-13-4993Umncioa encounter procedureKelsey Espino APRN VAULT PERSON-BC-Lab [address] [place] Work Phone: Start: 08-28-2025 End: 89-30-5862bvjympmbbeOSQKGYHAI NO [facility] Work Phone: Start: 08-22-2025 End: 43-70-1269Biwzdeogx department patient visitFederico Randolph Facility:FTMCStart: 05-06-2025 End: 35-88-1022yyedoihvdsLjieq T [facility] Work Phone: Start: 05-06-2025 End: 62-14-0718Fkrjsixm Kimber Dahl MD Work Phone: [facility]-LAB [facility] HospStart: 05-04-2025 End: 36-16-0924bettqesuvrNipaxya M [facility] Work Phone: Start: 05-04-2025 End: 23-81-4003Hgelbndr Kimber Dahl MD Work Phone: [facility]-LAB Path [facility] [place] HospStart: 01-23-2025 End: 22-11-8613cedcerwowjFwymlnlg Family Health Work Phone: [facility] Work Phone: Start: 01-23-2025 End: 02-81-8155Ssieytta ReferredSerChildren's Hospital of The [facility]'s [facility]aughters Work Phone: [facility]-LAB [facility] [place] HospStart: 01-16-2025 End: 17-19-1580Ojbipxftk department patient visitAstrit H [facility] Start: 10-28-2024 End: 14-35-7392Cllslfnss department patient visitServices [facility] Work Phone: [facility]-Emergency Room Work Phone: Start: 30-37-5716Opx-patient / Non-visitServices [facility] Work Phone: [facility] Work Phone: Start: 08-03-2024 End: 46-24-6511Ltaiyqxeq department patient visitServices Family [facility] Work Phone: [facility]-Emergency Room Work Phone: Start: 08-01-2024 End: 50-29-7865Bjryhqwzq department patient visitJEARAMIS MENDESSONFacility:FT Start: 07-30-2024 End: 60-06-9388Vwqjkamkm department patient visitTim ThomasFacility:FTMCStart: 03-18-2024 End: 77-04-1946Tsncbcugu department patient visitServices Family [facility] Work Phone: [facility]-Emergency Room Work Phone: Start: 03-15-2024 End: 37-71-5902Ucspuoysy department patient visitAstrit Raf [facility]onyK[facility]tering [facility] Start: 03-13-2024 End: 71-99-1646Xiwhcucjm department patient visitJomarylu Ernandeze [facility] Start: 07-31-2023 End: 18-45-4164Onmqeozlx department patient visitServices Family [facility] Work Phone: [facility]-Emergency Room Work Phone: Start: 07-14-2023 End: 77-47-3363jxfzvogvpkMogyucig Family [facility] Work Phone: [facility] Work Phone: Start: 07-14-2023 End: 61-22-0460Jtyayvn encounter procedureServices Family [facility] Work Phone: [facility] Start: 06-16-2023 End: 40-92-0002yimxxwpgcyVhcnvglw Family Health Work Phone: [phone] [place] [address] Ctr Work Phone: Start: 06-16-2023 End: 79-07-4349Rcbicxi encounter procedureServices Docin Work Phone: [facility] Start: 48-99-2497Imefyl follow up visit related to original pxThomas OlexaFPG [facility] OrthopedicsStart: 06-02-2023 End: 31-07-9911femmaoxknzKysidgta [facility] [employer] Work Phone: Elyssafregori Other Start: 06-02-2023 End: 92-20-9001Yseivwr encounter procedureServMeteor Solutions Work Phone: [facility] Start: 05-25-2023 End: 05-24-6204Pdzljcjyw to same day surgery centerServMeteor Solutions Work Phone: [facility]-Surgery Center Main [place]Start: 05-25-2023 End: 18-52-3513saodadqudeNgukwxsx Docin Work Phone: [facility] Work Phone: Start: 05-24-2023 End: 81-67-6943zgwymhlwhwXjruej Olexa Other Elyssafregori Other Start: 26-73-8583Iumzoocdl encounterThomas OlexaFPG [facility]opedicsStart: 05-23-2023 End: 07-04-2391vailaumdczTjjqju Olexa Other Elyssafregori Other Start: 63-89-2895Lprmhxzac for other preprocedural examinationThomas OlexaFPG [facility] OrthopedicsStart: 31-74-5168Vrfano outpatient new 45 minutesThomas OlexaFPG [place] OrthopedicsStart: 03-15-2023 End: 31-23-1970Uirinipe ReferredSerwellspan health [facility] Work Phone: [facility]-LA [facility] ServicesStart: 01-26-2023 End: 57-81-3022lmzyqwyplhPG DOCTOR MISCFacility:B0Ttygk: 01-06-2023 End: 22-97-8009Ksxptuirsr and management of inpatientSColumbus Regional Healthcare [facility] Work Phone: [facility] Work Phone: Start: 61-59-4101pohmgtwrmvt encounterServErlanger [facility] Work Phone: [facility] Work Phone: Start: 01-06-2023 End: 67-58-5179EoiihdycC[facility] Work Phone: [facility]-3 [place] [facility] Work Phone: Start: 01-02-2023 End: 51-61-5058YfxbbsdbCape Fear [facility] Work Phone: [facility]-Emergency Room Work Phone: Start: 01-01-2023 End: 53-73-4364rcgoprbtgoCDCJJO DIAB .Facility:X3Wsqow: 12-31-2022 End: 26-03-6079Vxeeobwhp department patient visitServErlanger [facility] Hospital Work Phone: [facility] Work Phone: Start: 12-31-2022 End: 85-43-5994PcxukuduCape Fear Valley [facility]aden [facility] Hospital Work Phone: [facility]-Emergency Room Work Phone: Start: 11-09-2022 End: 09-36-0452Cxovponci department patient visitServErlanger [facility] Hospital Work Phone: [facility] Work Phone: Start: 11-09-2022 End: 94-44-2491HndmtkeqErlanger [facility] Hospital Work Phone: [facility]-Emergency RoomStart: 11-07-2022 End: 49-49-9313Mtzvyorix department patient visitServices [facility] Senior Work Phone: [facility] Work Phone: Start: 11-07-2022 End: 87-84-7430Jodgjywr [facility] Senior Work Phone: [facility]-Emergency RoomStart: 11-02-2022 End: 44-49-6069Ezyxhrezz department patient visitServices [facility] Senior Work Phone: [facility] Work Phone: Start: 11-02-2022 End: 80-29-4321Tzbaeyug [facility] Senior Work Phone: [facility]-Emergency RoomStart: 10-31-2022 End: 40-55-6051Cysevgvgt department patient visitServices [facility] Senior Work Phone: [facility] Work Phone: Start: 10-31-2022 End: 96-10-5442Yexgxyeo [facility] Senior Work Phone: [facility]-Emergency RoomStart: 10-29-2022 End: 84-40-9505Wzoieicat department patient visitServices [facility] [employer] Work Phone: [facility]-Emergency RoomStart: 10-29-2022 End: 94-92-5127Cfeowdkb [facility] Senior Work Phone: [facility]-Emergency RoomStart: 08-27-2022 End: 16-47-6793Sazwospk ReferredSerChildren's Hospital of [facility] Senior Work Phone: [facility] ServicesStart: 08-27-2022 End: 80-91-2948Urpbhrse [facility] [employer] Work Phone: [facility] ServicesStart: 08-20-2022 End: 32-12-7072Zebwwdzpal and management of inpatientServthomas hospital [employer] Phone: [facility]-3 [place] Med SurgStart: 08-20-2022 End: 65-76-8915Tkrgzoeo [facility] Senior Work Phone: [facility]-3 [place] Med SurgStart: 08-19-2022 End: 63-66-7129Kgkvqgybg department patient visitServScionHealth Work Phone: [facility]-Emergency RoomStart: 08-19-2022 End: 81-93-9865Douppizj [facility] Senior Work Phone: [facility]-Emergency RoomStart: 08-19-2022 End: 74-24-2606Enxhyutmp department patient visitServScionHealth [employer] Hospit[employer] Phone: [facility]-Emergency RoomStart: 08-19-2022 End: 95-87-9326Rmzlzzrg [facility] Senior Work Phone: [facility]-Emergency RoomStart: 08-18-2022 End: 05-79-3943Mkyazturn department patient visitServScionHealth [employer] Hospitality Phone: [facility]-Emergency RoomStart: 08-18-2022 End: 38-02-3103Wfxdofcn Family Health [employer] Work Phone: [facility]-Emergency RoomStart: 06-25-2022 End: 44-57-7335Rxhtxhvb ReferredSerGardner Sanitarium [employer] Phone: [facility]-LA Family Health ServicesStart: 06-09-2022 End: 97-11-8188Ijgblwbgy to same day surgery centerServthomas hospital [employer] Phone: [facility]-Digestive HealthStart: 06-07-2022 End: 95-59-5035Lqcuclv encounter procedureServthomas hospital [employer] Phone: [facility] Doa-Shw-Goipplvk Testing Start: 05-26-2022 End: 92-09-3086Cmaoroio ReferredServic Family [facility] Work Phone: [facility] ServicesStart: 57-91-8227hlmjmcihkcAhyjrq Jenkins RNNURSE ON CALLComment on above:Abdominal PainStart: 05-16-2022 End: 06-87-2370Nknjvqbgb department patient visitServices Family Health Work Phone: [phone] [place] [address] Ctr-Emergency RoomStart: 05-15-2022 End: 10-70-7346Wzrccmwun department patient visitServices Family Health Work Phone: [phone] [place] [address] Ctr-Emergency RoomStart: 05-14-2022 End: 65-11-4512Yronpctjg department patient visitServices Family Health Work Phone: [phone] [place] [address] Ctr-Emergency RoomStart: 05-14-2022 End: 70-51-3540Zvfnqyvak department patient visitServices Family Health Work Phone: [facility] C[facility]-Emergency RoomStart: 05-13-2022 End: 37-67-4717Mjjtjlvxd department patient visitServices Family Health Work Phone: [phone] [place] [address] Ctr-Emergency RoomStart: 82-90-0306Aolbxeovzb and management of inpatientBridget Magy Unger Facility:RBCStart: 84-55-7841Auiefss encounterJUDY B SPLIRAISFacility:9193Start: 02-98-6046Jqfzilt encounterMere Solorio MaxwellFacility:9193Start: 04-14-2018 Patient encounterJUDY B SPLAWSKIFacility:9193Start: 62-97-4289Olbntis encounter Mere PuenteswellFacility:9193Start: 74-48-3627Tsqqnjb encounterJUDY B SPLIRAIS Facility:9193Start: 09-11-7055Vibuffw encounterJUDY B SPLAWSKIFacility:9193 Start: 44-57-6735Zoubdfp encounterJUDY B SPLAWSKIFacility:9193Start: 09-28-2017 Patient encounterKatmilo Solorio MaxwellFacility:9305Start: 52-98-3863Dnqgtev encounterDALI Marcus KEYONNAFacility:[facility] CtrStart: 08-09-2017 End: 04-65-5109Jrsvredonr and management of inpatientAIMEE WILKERSONCHICKASAW NATION [facility] – ADALUIS EDUARDO Facility:RBC Procedures DateProcedureProcedure DetailPerforming ClinicianStart: 18-34-6344Yiekh culture Jasmeet Dahl MD Work Phone: Start: 11-38-8442Ngzuc [facility] Medical CenterGliAffidabili.it Work Phone: Start: 77-68-7213C-ray of right kneeServices Docin Work Phone: Start: 41-69-1467N-ray of right kneeSvassar brothers medical center Docin Work Phone: Start: 13-04-6633L-ray of right kneeSkettering health miamisburgices Docin Work Phone: Start: 44-26-3162Zhagqontnay of kneeSkettering health miamisburgMeteor Solutions Work Phone: Start: 33-26-0584Qefgijzimcu Panel (PCR)Services Docin Work Phone: Start: 29-48-2983Ozviovrp tomography of abdomen and pelvis with contrastSkettering health miamisburgGolfshop Online Work Phone: Start: 69-11-0428Kxdrl chest X-raySkettering health miamisburgPayParrot Phone: Start: 85-01-2600Vqtfon X-raySkettering health miamisburgGolfshop Online Work Phone: Start: 40-55-4256Inbat cultureSkettering health miamisburgGolfshop Online Work Phone: Start: 29-75-9243Kpnltwqxk A and B virus antigen assay Services [facility] Work Phone: Start: 23-72-4092Otpig cultureSMonetsu Work Phone: Start: 10-55-0688Uozuq [facility] UnionGolfshop Online Work Phone: Start: 02-52-9772Qdwby cultureServGolfshop Online Work Phone: Start: 96-94-8165Xvvimaql tomography of abdomen and pelvis with contrastServices Docin Work Phone: Start: 55-61-8895JreflbsernbsztaypgtdclrspcDhiedxix [employer] Phone: Start: 11-92-0229Ltqgiygy tomography of abdomen and pelvis with contrastServices Docin Work Phone: Start: 89-79-0386Pmdozwkcfpje of Nutritional Substance into Upper GI, Via Natural or Artificial OpeningKathleen MaxwellStart: 60-11-5045Hiqpeojdlq of Larynx, Via Natural or Artificial Opening Endoscopic Mere MaxwellStart: 03-09-5494Kuimjbe Bleeding in Respiratory Tract, Via Natural or Artificial OpeningKathleen MaxwellStart: 58-33-3596Iefdgvik of Duodenum, Via Natural or Artificial Opening Endoscopic, DiagnosticKateen MaxwellStart: 05-02-4448Exctqrou of Lower Esophagus, Via Natural or Artificial Opening Endoscopic, DiagnosticKathleen MaxwellStart: 80-53-1420Qqhikwec of Stomach, Pylorus, Via Natural or Artificial Opening Endoscopic, Diagnostic [facility] Medical CenterSARS Antigen (LFIA)Services Docin Work Phone: SARS Antigen (LFIA)Services Docin Work Phone: SARS Antigen (LFIA)Services Doc[facility] Work Phone: Urine [facility] Union[facility] Work Phone: Urine [facility]Met[facility] Work Phone: Urine [facility] UnionMet[facility] Work Phone: Urine [facility] UnionGolfshop Online Work Phone: Serwellspan health [facility] Work Phone: Sers[facility]eres [facility] Work Phone: Serwellspan health [facility] Work Phone: Plan of Treatment DateCare ActivityDetailAutrStart: 87-04-4000Sdrys [facility] Community Hospitaltart: 19-48-2126Igigweni identified in Urine by CultureUrine CultureCincinnati VA Medical Centertart: 21-58-7666Jlpmmzlx identified in Urine by CultureUrine CultureCincinnati VA Medical Centertart: 05-06-2025 Urine cultureCincinnati VA Medical Centertart: 74-90-2181Rulnyelg identified in Urine by CultureUrine [facility] Start: 43-76-8258Vssci [facility] Community Hospitaltart: 01-23-2025 Bacteria identified in Urine by CultureUrine [facility] Companytart: 35-07-7956Vgido [facility] Hospitaltart: 59-05-1681HizicsdtpCincinnati VA Medical Centertart: 93-71-3843QcxkmielzCincinnati VA Medical Centertart: 30-00-9942LywvznjiqCincinnati VA Medical Centertart: 72-75-0051NelqjumljCincinnati VA Medical Centertart: 05-93-5559Ehfos chemistry [facility] Centertart: 26-17-3221MdlcjazcdCincinnati VA Medical Centertart: 29-18-4463Oaxfb chemistryCincinnati VA Medical Centertart: 01-07-2023 End: 2004LsqvgoiwuCincinnati VA Medical Centertart: 17-66-1635Qcaflyn referral to dietitianCincinnati VA Medical Centertart: 71-01-4642Qwrzfukw admissionCincinnati VA Medical Centertart: 18-70-3696MbbowqiuhCincinnati VA Medical Centertart: 97-98-3534Zovcrigt tomography of abdomen and pelvis with contrastCincinnati VA Medical Centertart: 23-73-5378EJ Abdomen and Pelvis W contrast [facility] Hospitaltart: 01-06-2023 End: 57-29-5306KjzbajlziDayton Children'S Hospital CenterStart: 78-61-7752Etbqv culture [facility] Centertart: 12-31-2022 End: 39-86-6827FprylwfuoCincinnati VA Medical Centertart: 00-67-5731OussguelzDayton Children'S Hospital CenterStart: 90-90-9854SboyenthlCincinnati VA Medical Centertart: 87-83-8929VbzhtgayoCincinnati VA Medical Centertart: 39-15-4883UrafhomwuSelect Medical [facility]ty [facility] Work Phone: Start: 49-21-9984Vfqzozch admissionCincinnati VA Medical Centertart: 95-21-6512LreqzwymkDayton Children'S Hospital Ctr Work Phone: Start: 74-46-9211VrrecgkxdDayton Children'S Hospital Ctr Work Phone: Start: 23-96-5450Wplwvwsj tomography of abdomen and pelvis with contrastCT abdomen pelvis w [facility] Start: 10-46-1476FV Abdomen and Pelvis W contrast [facility] Work Phone: Start: 66-74-8755YesvswqacDayton Children'S Hospital Ctr Work Phone: Start: 93-00-4951Trpkbnmal vaccinationINFLUENZA (Season Ended)[facility]: 76-04-9663XfjkpwkcrDayton Children'S Hospital [facility]tr Work Phone: Start: 40-53-4512FSGSKQZEX SCREENING (18-24)CHLAMYDIA SCREENING (18-24)[facility]: 01-49-4544CA (GONORRHEA) SCREENING (18-24)GC (GONORRHEA) SCREENING (18-24)[facility]: 2022 HEPATITIS C SCREENINGHEPATITIS C SCREENINGAkron Children's Hospitaltart: 45-47-3402YEK SCREENINGHIV SCREENINGAkron Children's Hospitaltart: 08-00-7203YXUAGJXGYMORK CONJUGATE (1 - 2-dose series)MENINGOCOCCAL CONJUGATE (1 - 2-dose series)[facility] Start: 91-84-2465EJYZ TO ADULT TRANSITION ANNUAL ASSESSMENTPEDS TO ADULT TRANSITION ANNUAL ASSESSMENTAkron Children's Hospitaltart: 51-96-5818Xuzbq depression screening assessmentDEPRESSION SCREENINGCleSt. Francis Hospitaltart: 26-87-8027QAFS TO ADULT TRANSITION INITIAL DISCUSSIONPEDS TO ADULT TRANSITION INITIAL DISCUSSION [facility]: 45-30-3691BCO VACCINE (1 - 2-dose series)HPV VACCINE (1 - 2-dose series)[facility]: 96-82-2237ZFADXFIQOWDDZ B: Consider based on risk (1 of 2 - Risk Bexsero 2-dose series)MENINGOCOCCAL B: Consider based on risk (1 of 2 - Risk Bexsero 2-dose series)[facility]: 57-41-3266Zpmel microalbumin profileDTAP,TDAP,TD (1 - Tdap)[facility]: 2009 COVID-19 VACCINE (#1)[facility] CenterAmphetamines [Presence] in [facility]rineSelect [facility] Work Phone: Bacteria identified in Blood by CultureZanesville City HospitalBacteria identified in Urine by CultureZanesville City HospitalBacteria identified in Urine by CultureZanesville City HospitalBarbiturates [Presence] in UrineSelect [facility]ty [facility] Work Phone: Basophils [#/volume] in Blood by Automated count [facility] HospitalBasophils/100 leukocytes in Blood by Automated countZanesville City HospitalBenzodiazepines [Presence] in Urine [facility] Work Phone: Bilirubin measurement, urineSelect [facility] Work Phone: Cannabinoids [Presence] in Urine by Screen method [facility] Work Phone: Chlamydia trachomatis DNA [Presence] in Unspecified specimen by JANAK with probe detectionZanesville City HospitalChlamydia trachomatis rRNA [Presence] in Cervix by JANAK with probe detectionZanesville City HospitalChoriogonadotropin ( test) [Presence] in Urine [facility] Work Phone: Cocaine [Presence] in UrineSelect [facility] Work Phone: Color of UrineSelect [facility]ty [facility] Work Phone: Detection of hemoglobinSelect Medical Specialty [facility] Work Phone: Eosinophils/100 leukocytes in Blood by Automated count [facility] HospitalErythrocyte distribution width [Ratio] by Automated countZanesville City HospitalErythrocytes [#/volume] in Blood [facility] HospitalGlucose [Mass/volume] in Urine by Test strip [facility] Work Phone: Hematocrit [Volume Fraction] of [facility] HospitalHemoglobin [Mass/volume] in [facility] HospitalHomogenous nuclear Ab pattern [Titer] in [facility] Work Phone: [place] papilloma virus 16+18+31+33+35+39+45+51+52+56+58+59+66+68 DNA [Presence] in Cervix by Probe with signal amplificationZanesville City HospitalHuman papilloma virus 16+18+31+33+35+39+45+51+52+56+58+59+68 DNA [Presence] in Cervix by Probe with signal amplificationZanesville City HospitalLeukocytes [#/volume] corrected for nucleated erythrocytes in Blood by Automated counZanesville City HospitalLeukocytes [#/volume] in [facility] HospitalLymphocytes [#/volume] in Blood by Automated [facility] SouthLymphocytes/100 leukocytes in Blood by Automated [facility] SouthMCH [Entitic mass] by Automated [facility] SouthMCHC [Mass/volume] by Automated [facility] SouthMCV [Entitic volume] by Automated [facility] Measurement of ketones in urine using dipstickDayton Children'S Hospital Ctr Work Phone: Monocytes [#/volume] in Blood by Automated count [facility] HospitalMonocytes/100 leukocytes in Blood by Automated countZanesville City HospitalNeisseria gonorrhoeae DNA [Presence] in Unspecified specimen by JANAK with probe detectionZanesville City HospitalNeisseria gonorrhoeae rRNA [Presence] in Cervix by JANAK with probe detectionZanesville City HospitalNeutrophils [#/volume] in Blood by Automated countZanesville City HospitalNeutrophils/100 leukocytes in Blood by Automated [facility] SouthNuclear Ab [Titer] in [facility] Work Phone: Nucleated erythrocytes [Presence] in Blood by Automated [facility] SouthPatient [facility] Work Phone: Patient referralDayton Children'S Hospital [facility] Work Phone: Phencyclidine [Presence] in UrineDayton Children'S Hospital Ctr Work Phone: Platelet mean volume [Entitic volume] in Blood by Automated countZanesville City HospitalPlatelets [#/volume] in Blood [facility] HospitalProtein measurement, urineDayton Children'S Hospital Ctr Work Phone: [phone]-QdB-2 (COVID-19) N gene [Presence] in Respiratory specimen by JANAK with probe detectionDayton Children'S Hospital Ctr Work Phone: Trichomonas vaginalis DNA [Presence] in Unspecified specimen by JANAK with probe detectionZanesville City HospitalUrinalysis, specific gravity measurementDayton Children'S Hospital Ctr Work Phone: Urine cultureUrine CultureZanesville City HospitalUrine cultureZanesville City HospitalUrine dipstick for nitrite [facility] Work Phone: Urine dipstick for specific gravityDayton Children'S Hospital Ctr Work Phone: Urine pH testDayton Children'S Hospital [facility]tr Work Phone: Urobilinogen concentration, test strip measurement [facility] Work Phone: [facility] Immunizations Immunization DateImmunizationNotesCare ZpvxwbmsAvsfzebu65-56-8761fpzxioq toxoid, reduced diphtheria toxoid, and acellular pertussis vaccine, adsorbedServices [facility] Work Phone: [facility]02-10-2017Human Papillomavirus 9-valent vaccineThomas Olexa Other [place] [employer] Other [id number], unspecified formulationServices [facility] Work Phone: [facility]10-10-2016influenza, injectable, quadrivalent, preservative freeThomas Olexa Other [facility]10-10-2016Human Papillomavirus 9-valent vaccineThomas Olexa Other [employer] Other [phone], unspecified formulationServices [employer] Work Phone: [facility]08-04-2016human papilloma virus vaccine, quadrivalentThomas Olexa Other [facility]08-04-2016 meningococcal polysaccharide (groups A, C, Y and W-135) diphtheria toxoid conjugate vaccine (MCV4P)Colten Olexa Other [facility]08-04-2016tetanus toxoid, reduced diphtheria toxoid, and acellular pertussis vaccine, adsorbed Colten Olexa Other [facility]10-05-2015influenza, injectable, quadrivalent, preservative freeThomas Olexa Other [facility]09-22-2014influenza, injectable, quadrivalent, contains preservativeServices [employer] Work Phone: [facility]09-22-2014influenza, injectable, quadrivalent, preservative freeThomas Olexa Other [employer] Other [phone], seasonal, injectable, preservative freeThomas Olexa Other [facility] Payers DatePayer CategoryPayerPolicy ID2024Self-pay2019MedicaidCARESOURCE MEDICAID [facility] MEDICAID [id number] 2019-Present [phone] [address] [place] [address] [id number] .1.041627.3.57[id number] 2.16.840.1.279320.3.57[id number] 2.840.1.656971.3.57[id number] 2.840.1.212052.3.57[id number] 2.0.1.527088.3.57[id number] 2.0.1.188817.3.57[id number] 2.0.1.070202.3.57[id number] 2.0.1.718644.3.57[id number] 2.0.1.335960.3.57[id number] 2..1.657555.3.57[id number] 2.0.1.447124.3.57[id number] 2..1.295658.3.579.[id number] 2.840.1.535757.3.579.2.593 [id number] [id number] [id number] 537g383z-[id number] 80nw41ky-28tn-2m69-[id number] 2.16.840.1.1[id number] 2..0.1.825973.3.579.2.531 [id number] 2..0.1.0[id number] 2..0.1.0496[id number] 2.0.1.107832.3.579.2.531 Social History DateTypeDetailFacilityStart: 10-09-2021 End: 70-32-6293Arjsaiz smoking status NHISNever smoked tobaccoAshtabula County Medical Center Start: 75-14-7453Ynsfxst use and exposureSmokeless tobacco non-userAk[facility] Children's Hospitaltart: 42-09-9161Jhmshyx intakeLifetime non-drinker (finding)[facility]: 69-09-1769Bdhvezi SDOH Alcohol Xsnaifrjb4Xknkdfwfv ClinicStart: 27-49-9951Jxq Assigned At BirthNot on fileAkron Children's Hospitaltart: 06-09-2022 End: 58-93-0201Qahxykv smoking status NHISSmoker (finding)[facility]: 24-10-1341Vvn Assigned At BirthFemalUniversity Hospitals Beachwood Medical Centertart: 08-18-2022 End: 76-72-6291Kisfiyh smoking status NHISCurrent some day smokerCincinnati VA Medical Centertart: 46-55-0658Zmenpal smoking status NHISEx-smoker (finding)[facility] Centerex [facility]Tobacco smoking statusNeOhioHealth Van Wert Hospitaltart: 01-24-2025 End: 59-40-8005ZlxUhkhof (finding)[facility] HospitalNEGATED: Highlighted rowZanesville City Hospital Medical Equipment Procedure CodeEquipment CodeEquipment Original TextEquipment IdentifierDates Arthroscopy, kneeTendon/ligament bone anchor, non-bioabsorbable ()[id number] FDAStart: 69-35-4572Fuzkewutmkg, knee Soft-tissue/mesh anchor, non-bioabsorbable()[id number] FDAStart: 26-67-4461Rbvvgdnkvwd, kneeTendon/ligament bone anchor, bioabsorbable ()[id number] FDAStart: 05-25-2023 Goals DatePatient GoalDesired Activity/State Functional Status QcgjQllbswomkjFdirxvUqlmobdf09-81-7686Wnzzvayhuj StatusN/[facility]09-02-2024Functional StatusN/[facility]04-18-2024 Functional StatusN/[facility]04-16-2024Functional StatusN/A [facility]02-10-2023Functional statusPatient at Baseline [facility] Work Phone: [phone] 965-392802044674-10-1881Jqaixcvhty statusPatient at Baseline [facility] Work Phone: 1(650) [phone]olllgnt statusPatient at Baseline [facility] Work Phone: Mental Status UdjgLelnozdpcyXezxcpUimmthuq91-32-6522Etbywrckp functionPatient at Baseline [facility] Work Phone: [phone]) 444-503802-745880-30-5792Hitqljdiq functionPatient at Baseline [facility] Work Phone: 1(846) 494-913809-252824-39-7058Nthbgpjyw functionPatient at Baseline [facility] Work Phone: Clinical Notes 09-28-2015 to 08-22-2025 Note Date & LztlGjsfDxuexqzp10-67-3373 NoteED Patient Education Note Gastroenterology Nausea and [...] added (diluted fruit juice). ??? Eat bland, lpuv-hq-iloalt foods in small amounts as you are able. These foods include bananas, applesauce, rice, lean meats, toast, and crackers. ??? Avoid fluids that contain a lot of sugar or caffeine, such as energy drinks, sports drinks, andsoda. ??? Avoid alcohol. ??? Avoid spicy or fatty foods. General instructions ??? Take rgyx-jro-iwsxwga and prescription medicines only as told by your health care provider. ??? Drink enough fluid to keep your urine pale yellow. ??? Wash your hands often using soap and water for at least 20 seconds. If soap and water are not available, use hand design technology professor. ??? Make sure that everyone in your [...] and drinking to prevent dehydration. ??? Take mcbr-vev-cnufgna and prescription medicines only as told by [...] Reviewed: 05/21/2022 Elsevier Patient Education ? 2023 [employer]. Obstetrics and Gynecology Hyperemesis Gravidarum Hyperemesis gravidarum [...] It may be associated (more content not included)...[facility]02-19-2025 Hospital Discharge instructions Patient Education 01/16/2025 [...] limityour activities and whether you should start dzrwt-ho-bfdvgv exercises for your injury. Ice Ice your [...] provider. Document Revised: 2021 Document Reviewed: 08/04/2018 [employer] Patient Education 2020 [employer]. 01/16/2025 20:36:16 Contusion Contusion A contusion is [...] are sitting or lyingdown. General instructions Take jbbv-ezy-jpdshnf and prescription medicines only as told by [...] provider. Document Revised: 05/02/2023 Document Reviewed: 05/02/2023 [employer] Patient Education 2023 [employer]. 01/16/2025 20:36:16 Fall Prevention in the Home, Adult, Cxry-zk-Aexa Fall Prevention in the Home, Adult Falls [...] Keep items that you use often in mjuq-rx-pgvke places. Lower the shelves around your home [...] of the way. Do not use floor sammarinese or wax that makes floors slippery. What [...] Disease Control and Prevention, STEADI: cdc.gov National [place] on Aging: jacob.nih.gov National [place] on Aging: jacob.nih.gov Contact a doctor if: [...] provider. Document Revised: 07/18/2023 Document Reviewed: 07/18/2023 [employer] Patient Education 2023 [employer]. Follow Up Care 01/16/2025 17:51:58 With:MODESTA CHAND Address: [address] [place] [phone] Business (1) When:2025 20:14:58 Comments:Call Dr for diagnosis based follow up [facility] 02-19-2025 NoteED Patient Education Note Caregiving Fall [...] Keep items that you use often in exqf-rw-ozqts places. Lower the shelves around your home [...] the way. ??? Do not use floor sammarinese or wax that makes floors slippery. What [...] Control and Prevention, ANASTACIO: cdc.gov ??? National [place] on Aging: jacob.nih.gov ??? National [place] on Aging: jacob.nih.gov Contact a doctor if: [...] symptoms will go away. (more content not included)...[facility]09-04-2024 NoteED Patient Education Note Gastroenterology Hypokalemia [...] such as yogurt. General instructions ? Take rcro-qsm-uehjres and prescription medicines only as told by [...] provider. Document Revised: 07/29/2022 Document Reviewed: 07/29/2022 ElsevSocial Patient Education ? 2023 Elsevier Inc. Nausea [...] that has water adde (more content not included)...[facility]09-03-2024 Hospital Discharge instructions Patient Education 07/30/2024 [...] water added (diluted fruit juice). Eat bland, sngk-pi-uyogta foods in small amounts as you are able. These foods include bananas, applesauce, rice, lean meats, toast, and crackers. Avoid fluids that contain a lot of sugar or caffeine, such as energy drinks, sports drinks, and soda. Avoid alcohol. Avoid spicy or fatty foods. General instructions Take bcih-ucn-yijixlo and prescription medicines only as told by your health care provider. Drink enough fluid to keep your urine pale yellow. Wash your hands often using soap and water for at least 20 seconds. If soap and water are not available, use hand design technology professor. Make sure that everyone in your household [...] eating and drinking to prevent dehydration. Take isrc-zcw-ajtrerh and prescription medicines only as told by [...] provider. Document Revised: 05/21/2022 Document Reviewed: 05/21/2022 [employer] Patient Education 2023 [employer]. Follow Up Care 07/30/2024 19:27:35 With:FAMILIA CHAND Address: [facility] [address] [address] Business (1) When:08/02/2024 [facility] 09-02-2024 NoteED Patient Education Note Gastroenterology Nausea [...] added (diluted fruit juice). ? Eat bland, csri-it-kmrpgm foods in small amounts as you are able. These foods include bananas, applesauce, rice, lean meats, toast, and crackers. ? Avoid fluids that contain a lot of sugar or caffeine, such as energy drinks, sports drinks, and soda. ? Avoid alcohol. ? Avoid spicy or fatty foods. General instructions ? Take suui-lbo-lmpviwb and prescription medicines only as told by your health care provider. ? Drink enough fluid to keep your urine pale yellow. ? Wash your hands often using soap and water for at least 20 seconds. If soap and water are not available, use hand design technology professor. ? Make sure that everyone in your [...] and drinking to prevent dehydration. ? Take akjk-cqb-bhptzoc and prescription medicines only as told by [...] provider. Document Revised: 05/21/2022 Document Reviewed: 05/21/2022 [employer] Patient Education ? 2023 [employer].[facility] 07-30-2024 Evaluation + Plan noteExtracted from:Title:ED [...] PRN Nausea/Vomiting, # 16 tab(s), Refills(s) 0, Pharmacy:[facility]/pharmacy #[id number], 157, cm, 07/30/24 19:37:00 EDT, Height/Length Dosing, 96.1, kg, 07/30/24 19:37:00 EDT, Weight Dosing promethazine, 12.5 mg = 1 tab(s), Oral, q8hr, PRN as needed for nausea/vomiting, second line, # 10 tab(s), Refills(s) 0, Pharmacy: [facility]/pharmacy #[id number], 157, cm, 07/30/24 19:37:00 EDT, Height/Length Dosing, 96.1, kg, 07/30/24 19:37:00 EDT, Weight Dosing promethazine, 12.5 mg = 1 supp, Rectal, q8hr, PRN as needed for nausea/vomiting, 3rd line, # 6 EA, Refills(s) 0, Pharmacy: [facility]/pharmacy #[id number], 157, cm, 07/30/24 19:37:00 EDT, Height/Length [...] Lipase Level Magnesium Level Saline Lock Insert [facility] 04-18-2024 Hospital Discharge instructions Patient Education [...] careprovider. Do not use recreational drugs. Take vijs-lmm-zvukdtd and prescription medicines only as told by [...] provider. Document Revised: 06/08/2022 Document Reviewed: 06/08/2022 [employer] Patient Education 2022 [employer]. 03/15/2024 13:49:41 Nausea and Vomiting, Adult Nausea [...] water added (diluted fruit juice). Eat bland, dmhj-uq-elzqym foods in small amounts as you are able. These foods include bananas, applesauce, rice, lean meats, toast, and crackers. Avoid fluids that contain a lot of sugar or caffeine, such as energy drinks, sports drinks, and soda. Avoid alcohol. Avoid spicy or fatty foods. General instructions Take ejhc-zzl-nxujylw and prescription medicines only as told by your health care provider. Drink enough fluid to keep your urine pale yellow. Wash your hands often using soap and water for at least 20 seconds. If soap and water are not available, use hand design technology professor. Make sure that everyone in your household [...] eating and drinking to prevent dehydration. Take wbrh-znt-rbqpjzi and prescription medicines only as told by [...] provider. Document Revised: 05/21/2022 Document Reviewed: 05/21/2022 [employer] Patient Education 2022 [employer]. Follow Up Care 03/15/2024 10:34:05 With:Kirk Serrano Address:Unknown When:03/22/2024 13:33:04 Comments:Make sure to follow-up with Dr. Serrano at the surgery clinic in 1 week as instructed. Return to the emergency room if you develop chest pain, shortness of breath or any symptoms. [facility]04-18-2024 Evaluation + Plan noteExtracted from: Title:ED NoteAuthor:August [...] CT Chest w/ Contrast eGFR Magnesium Level [facility]04-17-2024 Hospital Discharge instructions Patient Education 03/13/2024 22:27:59 Nausea and Vomiting, Adult, Lrxv-ja-Wght Nausea and Vomiting, Adult Nausea is feeling [...] fruit juice). ?Low-calorie sports drinks. Eat bland, bpgi-ex-tmyzvr foods in small amounts as you are able, such as: ?Bananas. ?Applesauce. ?Rice. ?Low-fat (lean) meats. ?Nimrod. ?Crackers. Avoid drinking fluids that have a lot of sugar or caffeine in them. This includes energy drinks, sports drinks, and soda. Avoid alcohol. Avoid spicy or fatty foods. General instructions Take gige-wmq-gzomtce and prescription medicines only as told by your doctor. Drink enough fluid to keep your pee (urine) pale yellow. Wash your hands often with soap and water for at least 20 seconds. If you cannot use soap and water, use hand design technology professor. Make sure that everyone in your home [...] your doctor about eating and drinking. Take pfls-taj-vnegxwd and prescription medicines only as told by your doctor. Contact your doctor if your symptoms get worse or you have new symptoms. Keep all follow-up visits. This information is not intended to replace advice given to you by your health care provider. Make sure you discuss any questions you have with your health care provider. Document Revised: 05/21/2022 Document Reviewed: 05/21/2022 [employer] Patient Education 2022 [employer]. 03/13/2024 22:27:59 Muscle Strain, Gpav-ki-Uwce Muscle Strain A muscle strain, or pulled [...] is not too tight. General instructions Take ebcj-knw-vjvwcgb and prescription medicines only as told by [...] provider. Document Revised: 02/01/2022 Document Reviewed: 02/01/2022 [employer] Patient Education 2022 [employer]. Follow Up Care 03/13/2024 17:33:30 With:MODESTA ARCHIBALD Address: [address] [place] [address] [phone] Business (1) When:03/16/2024 Comments:You can use the medications as prescribed as needed for pain, nausea. Please follow-up with your primary care doctor for further evaluation and management. Please return to the ED if you develop chest pain, difficulty breathing or if any concerning signs or symptoms. [facility]04-16-2024 Evaluation + Plan noteExtracted from: Title:ED NoteAuthor:Brandi [...] pain, # 20 tab(s), Refills(s) 0, Pharmacy: [facility]/pharmacy #[id number], 160, cm, 03/13/24 17:38:00 EDT, Height/Length Dosing, 95.5, kg, 03/13/24 17:38:00 EDT, Weight Dosing orphenadrine, 60 mg = 2 mL, Injection, IV Push, Once, Stop date 03/13/24 20:27:00 EDT, STAT, Start date 03/13/24 20:27:00 EDT, 03/13/24 20:27:00 EDT promethazine, 25 mg = 1 supp, Rectal, q6hr, PRN Nausea/Vomiting, # 6 EA, Refills(s) 0, Pharmacy: [facility]/pharmacy #[id number], 160, cm, 03/13/24 17:38:00 EDT, Height/Length [...] kg, 2.06, m2 XR Chest 2 Views [facility]07-06-2023 Evaluation note* Encounter Date Diagnosis Assessment [...] May,Other specified postprocedural states (ICD-10 - Z98.890) Elyssafregori Other 06-27-2023 Evaluation note* Encounter Date Diagnosis Assessment Notes Treatment Notes Treatment Clinical Notes Apr, Other specified postprocedural s tates (ICD-10 - Z98.890) Elyssafregori Other 06-26-2023 Evaluation note* Encounter Date Diagnosis [...] pain for many months and potentially cause penitentiary pain and stiffness. We have discussed the [...] S82.111A) Apr,re-op exam (ICD-10 - Z01.818) [employer] Other 02-10-2023 History and physical note Author Eliana Bautista [facility] January 07, 2023 2:11amNote Date/TimeFebruary 2022 5:30pmMichael Ville [id number] Hospitalist H&P Signed Patient: Pili Parikh MR#: [id number] : 2005 Acct:[id number] Age/Sex: 17 / F Adm Date: 3 Loc: Room: [address] [place] [address] Type: ADM INOo Attending Dr: Eliana Bautista MD Copies to: [facility] Anette FRANKY Stout MD~ HPI DATE OF [...] unless noted in the HPI or below [facility] Attestation Statement: The following information was validated [...] promethazine 25 mg rectal suppository 25 mg NJ Q6H PRN Nausea #10 supp 01/02/23 [Rx [...] % (Auto) 19.9 % (.) 01/06/23 14:20 Pettis % (Auto) 7.4 % (.) 01/06/23 14:20 Eos % (Auto) 2.3 % (.) 01/06/23 14:20 Baso % (Auto) 0.3 % (.) 01/06/23 14:20 Nucleat RBC Rel Count 0.1 /100 WBC (0-0.5) 01/06/23 14:20 Neut # (Auto) 12.4 x10E3/uL (1.2-7.7) H 01/06/23 14:20 Lymph # (Auto) 3.5 x10E3/uL (1.20-4.8) 01/06/23 14:20 Pettis # (Auto) 1.3 x10E3/uL (0.1-1.00) H 01/06/23 [...] pH 6.5 (5.0-9.0) 01/06/23 16:10 Ur Specific Carlock 1.027 (1.001-1.030) 01/06/23 16:10 Urine Protein 100 [...] signed by Eliana Bautista MD> 01/07/23 0211 [facility] Work Phone: 1(474) 448-922109-24-2022 Progress note Author Gregorio Carey [facility] August 21, 2022 5:01pmNote Date/TimeSept2021 5:01pmTor[place] [address] Hospitalist Progress Note Signed Patient: Pili Parikh MR#: [id number] : 2005 Acct:[id number] Age/Sex: 17 / F Adm Date: 2 Loc: Room: [address] [place] [address] Type: ADM IN Attending Dr: Gregorio Carey [...] alot of discomfort. She recalls that the morgue keeper told her that in warm water against [...] 1 Gm/10 Ml Udc PO 08/22/23 06:59 TID.AC.[facility] A&P - Hospitalist Assessment/Plan (1) Intractable [...] signed by Gregorio Carey DO> 08/21/22 1701 [facility] Work Phone: 1(860) 518-313509-23-2022 History and physical note Author Gregorio Carey [facility] August 20, 2022 8:17pmNote Date/TimeSeptember 2021 8:17pmTor[place] [address] Hospitalist H&P Signed Patient: Pili Parikh MR#: [id number] : 2005 Acct:[id number] Age/Sex: 17 / F Adm Date: 2 Loc: Room: [address] [place] [address] Type: ADM IN Attending Dr: Gregorio Carey DO Copies to: [facility] Senior Gregorio Carey DO~ HPI [...] % (Auto) 11.5 % (.) 08/20/22 16:21 Pettis % (Auto) 3.7 % (.) 08/20/22 16:21 Eos % (Auto) 0.3 % (.) 08/20/22 16:21 Baso % (Auto) 0.4 % (.) 08/20/22 16:21 Neut # (Auto) 9.2 x10E3/uL (1.2-7.7) H 08/20/22 16:21 Lymph # (Auto) 1.3 x10E3/uL (1.20-4.8) 08/20/22 16:21 Pettis # (Auto) 0.4 x10E3/uL (0.1-1.00) 08/20/22 16:21 [...] <Electronically signed by Gregorio Carey DO> 08/20/222016 [facility] Work Phone: 1(563) 292-701606-19-2022 Miscellaneous Notes* Telephone Encounter - Luana Mak [...] if she can find a way to [facility], she will go there. Reason for Disposition Chest pain [1] Chest pain lasts > 5 minutes AND [2] described as crushing, pressure-like, or heavy Protocols used: ABDOMINAL PAIN - [id number], CHEST [id number] documented in this encounterAshtabula [facility]12-[facility]-2021 NoteHNO ID: [id number] Author: Rolando Wooten MD Service: ? Author [...] completed when applicable. PROCEDURE NOTE: IANDD right [employer]ER Risks, benefits, personnel and alternatives were explained. The patient wished to proceed. S/he was re-identified and a time out obtained. 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 Drainage [...] complication. MD Rolando Cherry, [facility]11-12-2021 NoteHNO ID: [id number] Author: Rolando Wooten MD Service: ? 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 Medical Historyintermittent asthmaMedical Historylactose intoleranceMedical HistoryPOTS diag 09/2015Surgical [id number] History strepthroat, uri, dehydration, otitis [id number] History ytfammedqji2787Kbfrdkekdmqnoeb [facility] [place] [facility] [place] fbnsiddu91/16- Hospitalization History3 days vomitting blood01/2017Hospitalization History vomiting, abd pain, dehydration FR07/22-07/27/2017[facility] E[facility] Other Evaluation noteNo assessment information available [facility] Work Phone: Evaluation note* Diagnosis Onset Date Resolution Status Nausea & vomiting acute [facility] Work Phone: Evaluation note* Diagnosis Onset Date Resolution Status Dehydration acuteHypokalemiaacuteIntractable nausea and vomitingacuteNausea & vomitingacute [facility] Work Phone: Evaluation note* Diagnosis Onset Date Resolution Status Abdominal pain acuteAcute hypokalemiaacuteChest painacuteDehydrationacuteHypokalemiaacute HypovolemiaacuteMallory-Cotton tearacuteNausea & vomitingacute [facility] Work Phone: History and physical note Author Eliaan Bautista [facility] January 07, 2023 2:11amNote Date/TimeFebruary 2022 5:30pmTor[place] [address] Hospitalist H&P Signed Patient: Pili Parikh MR#: [id number] : 2005 Acct:[id number] Age/Sex: 17 / F Adm Date: 3 Loc: Room: [address] [place] [address] Type: ADM INOo Attending Dr: Eliana Bautista MD Copies to: [facility] FRANKY Starkey MD~ HPI DATE OF EXAMINATION: [...] unless noted in the HPI or below [facility] Attestation Statement: The following information was validated [...] promethazine 25 mg rectal suppository 25 mg NJ Q6H PRN Nausea #10 supp 01/02/23 [Rx [...] % (Auto) 19.9 % (.) 01/06/23 14:20 Pettis % (Auto) 7.4 % (.) 01/06/23 14:20 Eos % (Auto) 2.3 % (.) 01/06/23 14:20 Baso % (Auto) 0.3 % (.) 01/06/23 14:20 Nucleat RBC Rel Count 0.1 /100 WBC (0-0.5) 01/06/23 14:20 Neut # (Auto) 12.4 x10E3/uL (1.2-7.7) H 01/06/23 14:20 Lymph # (Auto) 3.5 x10E3/uL (1.20-4.8) 01/06/23 14:20 Pettis # (Auto) 1.3 x10E3/uL (0.1-1.00) H 01/06/23 [...] pH 6.5 (5.0-9.0) 01/06/23 16:10 Ur Specific Carlock 1.027 (1.001-1.030) 01/06/23 16:10 Urine Protein 100 [...] signed by Eliana Bautista MD> 01/07/23 0211 [facility] Work Phone: Hospital course Narrative No data available for this section [facility] Work Phone: Hospital Discharge instructions Additional Instructions Follow-up with your primary care doctor Return to ED if develop worsening symptoms or concerns[facility] Work Phone: Hospital Discharge instructions Additional Instructions Follow-up with your primary care doctor Return to the ED if you develop worsening symptoms or concerns[facility] Work Phone: Hospital Discharge instructions Additional Instructions Take Phenergan as prescribed for nausea vomiting. Take Motrin and Tylenol as needed for muscle aches and pains. Take Carafate as prescribed.[facility] Work Phone: Hospital Discharge instructions Additional Instructions [...] you should first call your surgeon at [phone] for advice. If your are unable to contact your surgeon, seek help from a hospital emergency room. [facility] Work Phone: Hospital Discharge instructions Additional Instructions [...] with your family physician as soon as possible.[facility] Work Phone: Progress note No data available for this section [facility] HealthReason for referral (narrative)No reason for referral information availableDayton Children'S [facility] Work Phone: Summary Purpose Family [...] DATE CREATED AUTHOR AUTHOR'S ORGANIZ ATION 07/14/2018 [facility] DATE CREATED AUTHOR AUTHOR'S ORGANIZ ATION 01/04/2022 [facility] DATE CREATED AUTHOR AUTHOR'S ORGANIZ ATION 02/02/2023 [facility] DATE CREATED AUTHOR AUTHOR'S ORGANIZ ATION 07/30/2024 [facility] DATE CREATED AUTHOR AUTHOR'S ORGANIZ ATION 08/02/2024 [facility] DATE CREATED AUTHOR AUTHOR'S ORGANIZ ATION 08/05/2024 [facility] DATE CREATED AUTHOR AUTHOR'S ORGANIZ ATION 01/18/2025 [facility] DATE CREATED AUTHOR AUTHOR'S ORGANIZ ATION 08/30/2025 [facility] DATE CREATED AUTHOR AUTHOR'S ORGANIZ ATION 08/31/2025 [facility] DATE CREATED AUTHOR AUTHOR'S ORGANIZ ATION 09/06/2025 [facility] Source Comments (unrecognize d section and content) In the event this informatio n is protected by the Federal Confidentiality of Alcohol and Drug Abuse Patient Records regulations: The Federal rules restrict any use of the information to criminally investigate or prosecute any alcohol or drug abuse patient.[facility] Reason for Visit (unrecogniz ed section and content) ReasonCommentsAbdominal Pain Care Teams (unrecognized sec tion and content) Team Status: Inactive Member Role Status D[facility] Primary [facility] Provider Ac latesha Chand BOILER WASHER-CAttending ProviderActive Team Status: Inactive Member Role Status Dates Services [facility] Primary Care Provider Active Modesta Chand NP-CAttenca ProviderActive Team Status: Inactive Member Role Status Dates Services [facility] Primary Care Provider Active Ulises Wiley ProviderActive Team Status: Inactive Member Role Status Dates Services [facility] Primary Care Provider Active Kahlil Gardiner ProviderActive Team Status: Inactive Member Role Status Dates Services [facility] Primary Care Provider Active Josh Lopezrjoy ProviderActive Team Status: Inactive Member Role Status [facility] Services [facility] Primary Care Provider Active Kahlil Saldaña ProviderActive Team Status: Inactive Member Role Status [facility] Primary Care Provider Active Kahlil David ProviderActive Team Status: Active Member Role Status [facility] Primary Care Provider Ac tive Team Status: Inactive Member Role Status [facility] Primary Care Provider Ac Nicci Spicer ProviderActive Team Status: Inactive Member Role Status [facility] Primary Care Provider Ac francove Stevie Arnold Jr ProviderActive Team Status: Inactive Member Role Status [facility] Primary Care Provider Ac francove Kahlil David ProviderActive Team Status: Active Member Role Status [facility] Primary Care Provider Ac Josh Rajputrjoy ProviderActiveGregorio Carey , DOAdmit Provider, Attending ProviderActive Team Status: Inactive Member Role Status [facility] Primary Care Provider Ac francove Josh Davidrjoy ProviderActiveGregorio Carey , DOAdmit Provider, Attending ProviderActive Team Status: Inactive Member Role Status [facility] Primary Care Provider Ac Kahlil Rai ProviderActive Team Status: Inactive Member Role Status Dates Art Bianchi DO Emergency Provider Active [facility] ProviderActive Team Status: Inactive Member Role Status [facility] Primary Care Provider Ac Kahlil Hilliard ProviderActive Team Status: Inactive Member Role Status [facility] Primary Care Provider Ac latesha Bianchi DOKenarjoy ProviderActive Team Status: Inactive Member Role Status [facility] Primary Care Provider Active Stevie Munoz ProviderActive Team Status: Active Member Role Status [facility] Services [facility] Primary Care Provider Active Team Status: Inactive Member Role Status [facility] Primary Care Provider Active Kahlil Houston ProviderActive Team Status: Active Member Role Status [facility] Primary Care Provider Active Sejal Torres ProviderActiveSuzette [...] Start: October 28, 2024 End: October 29rtSejal sAhraf ProviderActiveStart: October 28, 2024 End: October 29, [...] BE BASED ON THE PRIMARY CLINICAL RECORDS. [employer] [facility]. provides no warranty or guarantee of the accuracy or completeness of information in this document.
[2025-11-25 11:38] LABS: SARS-CoV-2 Ag NEGATIVE (NEGATIVE)
[2025-11-25 11:43] LABS: Anion Gap 15.5; Blood Urea Nitrogen 22.0 mg/dL (7.0-18.0); Calcium 10.2 mg/dL (8.5-10.1); Carbon Dioxide 33.7 mmol/L (21.0-32.0); Chloride 88 mmol/L (98-107); Estimated GFR (African America >60 (>=60 mL/min/1.73m^2); Estimated GFR (Non-African Ame >60 (>=60 mL/min/1.73m^2); Glucose 128 mg/dL (74-106); Sodium 135 mmol/L (136-145)
[2025-11-25 11:47] LABS: Potassium 2.2 mmol/L (3.5-5.1)
[2025-11-25 12:01] VITALS: BP 145/72
== END 2025-11-25 12:29 | disposition home or self-care (01) ==
PROVIDERS: Emergency Provider Emergency Medicine
DX: O21.9 Vomiting of pregnancy, unspecified (principal); O99.282 Endocrine, nutritional and metabolic diseases complicating pregnancy, second trimester; E87.6 Hypokalemia; O99.332 Smoking (tobacco) complicating pregnancy, second trimester; F17.200 Nicotine dependence, unspecified, uncomplicated; Z3A.19 19 weeks gestation of pregnancy
CPT/HCPCS: 36415; 80048; 80307; 81001; 85025; 87804; 87811; 96361; 96374; 96376; 99284; J2405